=== PATIENT | female | born 1960 | race Caucasian/White ===

== ENCOUNTER 2021-04-18 22:10 | Emergency (ER) | payer OTHER ==
[2021-04-18] MEDS ORDERED: NA CHLORIDE 0.9% 1,000 ML ONE (23:20)
[2021-04-18 23:31] LABS: Absolute Lymphocytes (CBC) 3.5 K/uL (0.7-4.9); Basophils % 1.2 % (0-1.3); Hematocrit 36.3 % (36.0-45.0); Lymphocytes % 42.3 % (15.3-44.8); MPV 9.1 fL (7.6-11.3); RBC Red Blood Cell Count 4.37 M/uL (3.86-4.86)
[2021-04-18 23:32] LABS: Protime INR 0.97
[2021-04-18 23:46] LABS: ALT/SGPT 50 U/L (12-78); AST/SGOT 30 U/L (15-37); Albumin 3.2 g/dL (3.4-5.0); Alkaline Phosphatase 52 U/L (45-117); BUN Blood Urea Nitrogen 17 mg/dL (7-18); Bicarbonate 26 mmol/L (21-32); Bilirubin Direct < 0.1 mg/dL (0-0.2); Bilirubin Total 0.3 mg/dL (0.2-1.0); Glucose Level 236 mg/dL (74-106); Magnesium 1.8 mg/dL (1.8-2.4); NT PRO-BNP 58 pg/mL (<125); Potassium 3.8 mmol/L (3.5-5.1); Protein, Total 6.4 g/dL (6.4-8.2); Sodium Level 138 mmol/L (136-145); Troponin (Emerg Dept Use Only) < 0.02 ng/mL (0.0-0.045)
[2021-04-19 00:10] LABS: Urine Blood Negative (Negative); Urine Glucose Negative (Negative); Urine Protein Negative (Negative)
--- NOTE | 2021-04-19 03:45 | ER ---
Nurse's Notes [facility] Name: Jose Edmond Age: 60 yrs Sex: Female : 1960 Arrival Date: 04/18/2021 Time: 22:11 Bed 2 Private MD: Diagnosis: Volume depletion, unspecified Presentation: 04/18 22:22 Chief complaint: Patient states: low BP at home, reports 66/49, also reports dizziness, em had a headache by is gone now. Coronavirus screen: Vaccine status: Patient reports receiving the 2nd dose of the covid vaccine. Ebola Screen: Patient negative for fever greater than or equal to 101.5 degrees Fahrenheit, and additional compatible Ebola Virus Disease symptoms Patient denies exposure to infectious person. Patient denies travel to an Ebola-affected area in the 21 days before illness onset. No symptoms or risks identified at this time. Initial Sepsis Screen: Does the patient meet any 2 criteria? No. Patient's initial sepsis screen is negative. Does the patient have a suspected source of infection? No. Patient's initial sepsis screen is negative. Risk Assessment: Do you want to hurt yourself or someone else? Patient reports no desire to harm self or others. Onset of symptoms was April 18, 2021. 22:22 Method Of Arrival: Wheelchair em 22:22 Acuity: MAYRA 2 em 22:45 Note Pt states she was smoking marajuana tonight. Got up quickly and felt weak and wg shaky at home. Pt states she has not taken any medications other than what is prescribed. 22:52 Note finger stick 172mg/dl. wg Triage Assessment: 22:40 Headache History: The patient has had previous headaches and this one is similar to wg previous episodes. General: Appears comfortable, obese, well groomed, Behavior is calm, cooperative. Pain: Complains of pain in lower back and neck Pain does not radiate. Pain currently is 5 out of 10 on a pain scale. Quality of pain is described as aching, Pain began chronic pain- no changes Also complains of no other associated symptoms. EENT: No deficits noted. Neuro: No deficits noted. Cardiovascular: hypotensive. Cardiovascular: Rhythm is sinus rhythm. Respiratory: No deficits noted. GI: No deficits noted. : No deficits noted. Derm: No deficits noted. Musculoskeletal: No deficits noted. Historical: - Allergies: 22:24 Sulfa (Sulfonamide Antibiotics); em 22:24 TETRACYCLINES; em - Home Meds: 22:46 Furosemide Oral [Active]; Metformin Oral [Active]; clonazepam Oral [Active]; Verapamil wg Oral [Active]; hydrocodone-acetaminophen Oral [Active]; Insulin: Humalog Sub-Q [Active]; Quinapril HCl Oral [Active]; tizanidine oral [Active]; - PMHx: 22:24 Hypertensive disorder; Chronic obstructive lung disease; Diabetes mellitus; em - PSHx: 22:24 Cholecystectomy; section; back; hernia; hysterectomy; em - Immunization history:: Adult Immunizations up to date. - Social history:: Smoking status: Patient reports the use of cigarette tobacco products, denies chronic smoking, but will smoke occasionally. Screenin/17 03:23 Abuse screen: Denies threats or abuse. Denies injuries from another. Nutritional wg screening: No deficits noted. Tuberculosis screening: No symptoms or risk factors identified. Fall Risk Assessment: 04/18 23:15 General: Appears in no apparent distress. uncomfortable, obese, well groomed, Behavior wg is calm, cooperative, appropriate for age. Pain: Complains of pain in headache. 04/19 01:59 Reassessment: Patient appears in no apparent distress at this time. No changes from wg previously documented assessment. Patient and/or family updated on plan of care and expected duration. Pain level reassessed. Patient is alert, oriented x 3, equal unlabored respirations, skin warm/dry/pink. Pt has ambulated with assistance of wheelchair to BR multiple times. 02:01 Neuro: Reports dizziness, headache. Cardiovascular: hypotensive. Rhythm is sinus wg rhythm. Respiratory: No deficits noted. GI: No deficits noted. : No deficits noted. EENT: No deficits noted. Derm: No deficits noted. 02:45 Reassessment: Patient appears in no apparent distress at this time. No changes from wg previously documented assessment. Patient and/or family updated on plan of care and expected duration. Pain level reassessed. Patient is alert, oriented x 3, equal unlabored respirations, skin warm/dry/pink. Patient states feeling better. 04:09 Reassessment: Patient and/or family updated on plan of care and expected duration. Pain ea level reassessed. Patient is alert, oriented x 3, equal unlabored respirations, skin warm/dry/pink. Awaiting on lab results. Vital Signs: 04/18 22:22 BP 85 / 50; Pulse 83; Resp 18; Temp 98.7; Pulse Ox 95% on R/A; Weight 107.5 kg; Height em 5 ft. 4 in. (162.56 cm); 23:16 BP 105 / 64; Pulse 75; Resp 18; Pulse Ox 96% ; wg 04/19 00:00 BP 114 / 70; Pulse 76; Resp 18; Pulse Ox 99% on R/A; wg 00:30 BP 118 / 74; Pulse 72; Resp 18; Pulse Ox 99% on R/A; Pain 0/10; wg 01:57 BP 141 / 73; Pulse 79; Resp 17; Temp 98.2; Pulse Ox 96% ; Pain 1/10; mr2 02:45 BP 134 / 70; Pulse 78; Resp 18; Pulse Ox 99% on R/A; Pain 0/10; wg 03:24 BP 128 / 72; Pulse 76; Resp 18; Pulse Ox 99% on R/A; Pain 0/10; wg 04:30 BP 126 / 70; Pulse 74; Resp 18; Pulse Ox 99% on R/A; Pain 0/10; wg 04/18 22:22 Body Mass Index 40.68 (107.50 kg, 162.56 cm) em ED Course: 04/18 22:11 Patient arrived in ED. cf2 22:24 Triage completed. em 22:24 Arm band placed on. em 22:40 EKG completed in triage. Results shown to MD. wg 22:42 Jose Lux PA is PHCP. cp 22:42 Edgardo Johnston MD is Attending Physician. cp 22:44 Patient has correct armband on for positive identification. Placed in gown. Bed in low wg position. Call light in reach. Side rails up X2. Adult w/ patient. hall monitor on. Pulse ox on. NIBP on. 22:53 Inserted saline lock: 20 gauge in right forearm, using aseptic technique. wg 23:10 XRAY Chest (1 view) In Process Unspecified. EDMS 23:12 Protime (+INR) Sent. mr2 23:12 Troponin (Emerg Dept Use Only) Sent. mr2 23:12 Magnesium Sent. mr2 23:12 NT PRO-BNP Sent. mr2 23:12 Liver (Hepatic) Function Sent. mr2 23:12 CBC with Automated Diff Sent. mr2 23:12 Basic Metabolic Panel Sent. mr2 23:12 Blood Culture Adult (2) Sent. mr2 23:12 Lactate Sent. mr2 23:13 Procalcitonin Sent. mr2 23:13 Basic Metabolic Panel Sent. mr2 23:13 CBC with Diff Sent. mr2 23:13 LFT's Sent. mr2 23:13 Magnesium Sent. mr2 23:13 NT PRO-BNP Sent. mr2 23:13 PT-INR Sent. mr2 23:13 Troponin (emerg Dept Use Only) Sent. mr2 23:17 Magnus Quinteros RN is Primary Nurse. wg 04/19 00:11 Urine Dipstick-Ancillary Sent. 00:50 COVID-19 : Document "Date of Symptom Onset" if Symptomatic. Sent. wg 03:23 No provider procedures requiring assistance completed. wg 04:44 IV discontinued, intact, bleeding controlled, No redness/swelling at site. Pressure wg dressing applied. Administered Medications: 04/18 22:45 Drug: NS 0.9% 500 ml Route: IV; Rate: bolus; Infused Over: 30 mins; Site: right forearm;wg 23:15 Follow up: IV Status: Completed infusion; IV Intake: 500ml wg 04/19 00:33 Drug: NS 0.9% 500 ml Route: IV; Rate: bolus; Infused Over: 30 mins; Site: right wg antecubital; 01:00 Follow up: IV Status: Completed infusion; IV Intake: 500ml wg Intake: 04/18 23:15 IV: 500ml; Total: 500ml. wg 04/19 01:00 IV: 500ml; Total: 1000ml. wg Outcome: 03:45 Discharge ordered by . cp 04:44 Discharged to home wg 04:44 Discharged to home ambulatory. 04:44 Condition: stable 04:44 Condition: stable 04:44 Discharge instructions given to patient, Instructed on discharge instructions, follow up and referral plans. Demonstrated understanding of instructions, follow-up care, medications. 04:45 Patient left the ED. wg Signatures: Dispatcher [employer] Tay Munguia RN RN em Page, Corey, PA PA Chantell Pink RN RN ea Frazier, Celesta cf2 Magnus Quinteros, RN Artemio Singleton mr2 Corrections: (The following items were deleted from the chart) 04/18 23:46 22:22 Chief complaint: Patient states: low BP at home, reports 66/49, also reports em dizziness, had a headache by is gone now em 04/19 02:05 02:01 General: Appears in no apparent distress. uncomfortable, obese, well groomed, wg Behavior is calm, cooperative, appropriate for age, 02:05 02:01 Pain: Complains of pain in headache [facility] 02:05 02:01 Neuro: Reports dizziness, headache [facility]
--- NOTE | 2021-04-19 03:46 | EDPHYS ---
Physician Documentation [facility] Name: Jose Edmond Age: 60 yrs Sex: Female : 1960 Arrival Date: 04/18/2021 Time: 22:11 Bed 2 Private MD: ED Physician Edgardo Johnston HPI: 04/18 22:50 This 60 yrs old Female presents to ER via Wheelchair with complaints of Low cp Blood Sugar, Dizziness, Headache, FEELS LIKE SHES GOING TO PASS OUT. 22:50 The patient presents with feeling faint, lightheadedness. cp 22:50 Onset: The symptoms/episode began/occurred today. Associated signs and symptoms: cp Pertinent positives: headache, low blood pressure, Pertinent negatives: abdominal pain, chest pain, focal weakness, shortness of breath, syncope. Severity of symptoms: in the emergency department the symptoms have improved mildly. Patient's baseline: Neuro: alert and fully oriented, Motor: no deficits, Ambulation: walks with assist only, uses walker, Speech: normal. Historical: - Allergies: 22:24 Sulfa (Sulfonamide Antibiotics); em 22:24 TETRACYCLINES; em - Home Meds: 22:46 Furosemide Oral [Active]; Metformin Oral [Active]; clonazepam Oral [Active]; Verapamil wg Oral [Active]; hydrocodone-acetaminophen Oral [Active]; Insulin: Humalog Sub-Q [Active]; Quinapril HCl Oral [Active]; tizanidine oral [Active]; - PMHx: 22:24 Hypertensive disorder; Chronic obstructive lung disease; Diabetes mellitus; em - PSHx: 22:24 Cholecystectomy; section; back; hernia; hysterectomy; em - Immunization history:: Adult Immunizations up to date. - Social history:: Smoking status: Patient reports the use of cigarette tobacco products, denies chronic smoking, but will smoke occasionally. ROS: 22:55 Constitutional: Negative for body aches, chills, fever, poor PO intake. cp 22:55 Cardiovascular: Negative for chest pain, edema, palpitations. cp 22:55 Respiratory: Negative for cough, shortness of breath, wheezing. Exam: 22:47 ECG was reviewed by the Attending Physician. cp 23:00 Constitutional: The patient appears in no acute distress, alert, awake, cp non-diaphoretic, non-toxic, well developed, well nourished, obese. 23:00 Head/Face: Normocephalic, atraumatic. cp 23:00 Eyes: Periorbital structures: appear normal, Pupils: equal, round, and reactive to light and accomodation, Extraocular movements: intact throughout, Conjunctiva: normal, no exudate, no injection, Sclera: no appreciated abnormality, Lids and lashes: appear normal, bilaterally. 23:00 ENT: External ear(s): are unremarkable, Nose: is normal, Mouth: Lips: moist, Oral mucosa: pink and intact, moist, Posterior pharynx: Airway: no evidence of obstruction, patent. 23:00 Neck: ROM/movement: is normal, is supple, without pain, no range of motions limitations, no meningismus. 23:00 Chest/axilla: Inspection: normal. 23:00 Cardiovascular: Rate: normal, Rhythm: regular, Edema: is not appreciated, JVD: is not appreciated. 23:00 Respiratory: the patient does not display signs of respiratory distress, Respirations: normal, no use of accessory muscles, no retractions, labored breathing, is not present, Breath sounds: are clear throughout, no decreased breath sounds, no stridor, no wheezing. 23:00 Abdomen/GI: Inspection: obese Bowel sounds: active, all quadrants, Palpation: abdomen is soft and non-tender, in all quadrants. 23:00 Back: pain, is absent, ROM is normal. 23:00 Neuro: Orientation: to person, place \\T\\ time. Mentation: able to follow commands, slow to respond, Cerebellar function: is grossly normal, Motor: moves all fours, strength is normal, Sensation: is normal. Vital Signs: 22:22 BP 85 / 50; Pulse 83; Resp 18; Temp 98.7; Pulse Ox 95% on R/A; Weight 107.5 kg; Height em 5 ft. 4 in. (162.56 cm); 23:16 BP 105 / 64; Pulse 75; Resp 18; Pulse Ox 96% ; wg 17 00:00 BP 114 / 70; Pulse 76; Resp 18; Pulse Ox 99% on R/A; wg 00:30 BP 118 / 74; Pulse 72; Resp 18; Pulse Ox 99% on R/A; Pain 0/10; wg 01:57 BP 141 / 73; Pulse 79; Resp 17; Temp 98.2; Pulse Ox 96% ; Pain 1/10; mr2 02:45 BP 134 / 70; Pulse 78; Resp 18; Pulse Ox 99% on R/A; Pain 0/10; wg 03:24 BP 128 / 72; Pulse 76; Resp 18; Pulse Ox 99% on R/A; Pain 0/10; wg 04:30 BP 126 / 70; Pulse 74; Resp 18; Pulse Ox 99% on R/A; Pain 0/10; wg 04/18 22:22 Body Mass Index 40.68 (107.50 kg, 162.56 cm) em MDM: 04/18 22:43 Patient medically screened. 04/19 00:00 Differential diagnosis: cardiac arrhythmia, GI bleed, hypovolemia, sepsis. 03:45 Data reviewed: vital signs, nurses notes, lab test result(s), EKG, radiologic studies, cp plain films. 03:45 Test interpretation: by ED physician or midlevel provider: ECG, plain radiologic cp studies. Response to treatment: the patient's symptoms have markedly improved after treatment. 04/18 22:49 Order name: Basic Metabolic Panel 04/18 22:49 Order name: CBC with Diff 04/18 22:49 Order name: LFT's 04/18 22:49 Order name: Magnesium 04/18 22:49 Order name: NT PRO-BNP 04/18 22:49 Order name: PT-INR 04/18 22:49 Order name: Troponin (emerg Dept Use Only) 04/18 22:50 Order name: Procalcitonin; Complete Time: 00:30 04/18 22:50 Order name: Lactate; Complete Time: 00:30 04/19 00:30 Interpretation: Abnormal: LAC 2.9. 04/18 22:50 Order name: Blood Culture Adult (2) 04/18 22:50 Order name: Basic Metabolic Panel; Complete Time: 00:30 EDMS 04/19 00:31 Interpretation: Normal except: GLUC 236; GFR 70. 04/18 22:50 Order name: CBC with Automated Diff; Complete Time: 00:30 EDMS 04/19 00:31 Interpretation: Normal except: MCV 83.1; RDW 16.1. 04/18 22:50 Order name: Liver (Hepatic) Function; Complete Time: 00:30 EDMS 04/19 00:31 Interpretation: Normal except: ALB 3.2; A/G 1.0. 04/18 22:49 Order name: XRAY Chest (1 view) 04/18 22:50 Order name: Magnesium; Complete Time: 00:30 EDMS 04/18 22:50 Order name: NT PRO-BNP; Complete Time: 00:30 EDNM 04/18 22:50 Order name: Protime (+INR); Complete Time: 00:30 EDMS 04/18 22:50 Order name: Troponin (Emerg Dept Use Only); Complete Time: 00:30 EDMS 04/18 22:57 Order name: Glucose, Ancillary Testing; Complete Time: 23:07 EDNM 04/19 00:10 Order name: Urine Dipstick-Ancillary EDNM 04/19 00:10 Order name: Urine Dipstick-Ancillary; Complete Time: 00:30 EDNM 04/19 00:42 Order name: COVID-19 : Document "Date of Symptom Onset" if Symptomatic. 04/19 01:41 Order name: SARS-COV-2 RT PCR; Complete Time: 02:06 EDNM 04/19 04:24 Order name: Lactate Sepsis 2 HR Follow-up; Complete Time: 04:27 EDNM 04/18 22:49 Order name: EKG; Complete Time: 22:50 04/18 22:49 Order name: Cardiac monitoring; Complete Time: 23:14 04/18 22:50 Order name: EKG - Nurse/Tech; Complete Time: 23:14 04/18 22:50 Order name: IV Saline Lock; Complete Time: 23:14 04/18 22:50 Order name: Labs collected and sent; Complete Time: 23:14 04/18 22:50 Order name: O2 Per Protocol; Complete Time: 23:32 04/18 22:50 Order name: O2 Sat Monitoring; Complete Time: 23:14 04/18 22:50 Order name: Urine Dipstick-Ancillary (obtain specimen); Complete Time: 00:11 cp EC/16 22:47 Rate is 78 beats/min. Rhythm is regular. ND interval is normal. QRS interval is normal. cp QT interval is normal. T waves are Inverted in lead aVL. Interpreted by me. Reviewed by me. Administered Medications: 22:45 Drug: NS 0.9% 500 ml Route: IV; Rate: bolus; Infused Over: 30 mins; Site: right forearm;wg 23:15 Follow up: IV Status: Completed infusion; IV Intake: 500ml wg 04/19 00:33 Drug: NS 0.9% 500 ml Route: IV; Rate: bolus; Infused Over: 30 mins; Site: right wg antecubital; 01:00 Follow up: IV Status: Completed infusion; IV Intake: 500ml Disposition: 04:00 Chart complete. cp 04:47 Co-signature as Attending Physician, Edgardo Johnston MD. pkl Disposition Summary: 04/19/21 03:45 Discharge Ordered Location: Home cp Problem: new cp Symptoms: have improved cp Condition: Stable cp Diagnosis - Volume depletion, unspecified cp Followup: cp - With: Private Physician - When: 2 - 3 days - Reason: Recheck today's complaints Discharge Instructions: - Discharge Summary Sheet cp - Dehydration, Adult cp Forms: - Medication Reconciliation Form cp - Thank You Letter cp - Antibiotic Education cp - Prescription Opioid Use cp Signatures: Dispatcher [employer] EDEdgardo Rodriguez MD MD pkl Munoz, Edgar RN RN Jose Deutsch PA PA cp Gamba, Liam, RN Corrections: (The following items were deleted from the chart) 00:51 00:43 CORONAVIRUS ordered. EDMS EDMS 02:49 02:31 Head Brain Wo Cont+CT.RAD.BRZ ordered. EDMS EDMS
[2021-04-19 04:58] VITALS: TEMP 98.2
[2021-04-19 05:00] VITALS: O2SAT 99
[2021-04-19 05:02] VITALS: BP 126/70
--- NOTE | 2021-04-19 08:30 | RAD REPORT ---
EXAM DESCRIPTION: RAD - Chest Single View - 04/18/2021 11:10 pm CLINICAL HISTORY: hypotension COMPARISON: None TECHNIQUE: AP portable chest image was obtained 04/18/2021 11:10 pm . FINDINGS: No mass or consolidation. No significant failure or volume overload. Interstitial markings in each lung base are accentuated much of which is due to portable technique and overlying soft tiss ues. Lung base interstitial edema or infiltrate could be masked. Heart and vasculature are normal. No measurable pleural effusion and no pneumothorax. No acute bony abnormality seen. No acute aortic findings suspected. IMPRESSION: No focal mass or consolidation. Increased bibasilar interstitial pattern is probably the affects of overlying soft tissues though a m ild interstitial edema or infiltrate would be possible.
--- NOTE | 2021-04-19 18:24 | EKG ---
Test Date: 2021-04-18 Test Time: 22:42:52 Abalone Sheller: JAZMYN MEASUREMENT RESULTS: Intervals: Rate: 78 HI: 184 QRSD: 94 QT: 394 QTc: 449 Sibley: P: 62 HI: 184 QRS: 51 T: 79 INTERPRETIVE STATEMENTS: Normal sinus rhythm Normal ECG Compared to ECG 12/05/2013 14:01:37 No significant changes Electronically Signed On 04-19-21 18:21:00 CDT by Corey Johnson
== END 2021-04-19 04:45 | disposition home or self-care (01) ==
LOC: ER 22:10
DX: E86.9 Volume depletion, unspecified (principal); I10 Essential (primary) hypertension; E11.9 Type 2 diabetes mellitus without complications; J44.9 Chronic obstructive pulmonary disease, unspecified; F17.210 Nicotine dependence, cigarettes, uncomplicated; Z88.1 Allergy status to other antibiotic agents; Z88.2 Allergy status to sulfonamides; Z79.4 Long term (current) use of insulin; Z20.822 Contact with and (suspected) exposure to COVID-19
CPT/HCPCS: 93005; 87040 ×2; 85025; 80048; 36415; 83735; 85610; 82947; 80076; 83605 ×2; 81003; 84484; 84145; 83880; 71045; 96360; 99284; U0003; J7030

== ENCOUNTER 2022-07-23 16:02 | Inpatient (IN) | payer OTHER ==
--- OUTSIDE RECORDS SUMMARY | 2022-07-23 16:29 | XMS REPORT | Continuity of Care Document ---
:1960 Author Organization [facility] t Address [address] [place] [address] Care Team Providers Name Role Phone Jefferson Witt MD Primary Care Physician BISI CARDOSO Attending Clinician Unavailable GIOVANY ANTOINE Attending Clinician Unavailable RACHELL CHENG Attending Clinician Unavailable RACHELL CHENG Attending Clinician Unavailable JEFFERSON WITT Attending Clinician Unavailable Marylou Borrego Attending Clinician Claudia Recinos Attending Clinician JESUS SPAIN Attending Clinician Unavailable Jesus Spain MD Attending Clinician Jefferson Witt MD Attending Clinician Rachell Cheng MD Attending Clinician ROSETTE CONTERRAS Attending Clinician Unavailable Rosette Markham Attending Clinician [facility], [facility] Sleep Lab Attending Clinician Unavailable Doctor Unassigned, [place] Attending Clinician Unavailable 2, [facility] Lab Attending Clinician Unavailable CLAUDIA PORTER Attending Clinician Unavailable DAYLIN MOJICA Attending Clinician Unavailable Daylin Mojica NP Attending Clinician [facility], [facility] Attending Clinician UnavailGiovany Moseley MD Attending Clinician ARMINDA VEGA Attending Clinician Unavailable Noemi Christian Attending Clinician Andrea Morrow MD Attending Clinician NOEMI WAITE Attending Clinician Unavailable DILAN LOVE Attending Clinician Unavailable Dilan Love MD Attending Clinician Lab, Ang - Db Attending Clinician Unavailable MARYLOU GAMINO Attending Clinician Unavailable PRAVEEN SAGE Attending Clinician Unavailable Praveen Shipman Attending Clinician Audrey OCONNOR, Brian Iraheta. Attending Clinician BRIAN VENTURA.H. Attending Clinician Unavailable Only, Adc Test Attending Clinician Unavailable Mike OCONNOR, Maryam Attending Clinician MARYAM MCKEON Attending Clinician Unavailable ROBBIE CORONADO Attending Clinician Unavailable Nurse, [facility] Pob Immunization Attending Clinician Unavailable Severo Lara DO Attending Clinician SEVERO LARA Attending Clinician Unavailable Linda CHONG, Elizabeth Ballesteros Attending Clinician Unavailable CHERYLE PERERA Attending Clinician Unavailable Cheryle Perera MD Attending Clinician Ana Riddle MD Attending Clinician Derek HAM SAWYERDoron Attending Clinician DORON REED Attending Clinician Unavailable Josse Lafleur Attending Clinician JOSSE LEYVA Attending Clinician Unavailable Provider, [facility] Attending Clinician Unavailable Romi Fernandez Attending Clinician Lia CHONG, Araceli Black Attending Clinician Unavailable JAYASHREE MULLINS Attending Clinician Unavailable Jayashree Mullins DO Attending Clinician JORGE LUIS LANE Attending Clinician Unavailable Bisi Cardoso MD Attending Clinician Guy Mcclellan RN, Yaneli Attending Clinician Unavailable , [facility] Echo Room 1 - Attending Clinician Unavailable Robbie Coronado MD Attending Clinician Visit, Adc Nurse Attending Clinician Unavailable Gramm HAM SAWYER, Sandy A Attending Clinician GRAMM, SANDY A Attending Clinician Unavailable Lab, [facility] Fam Pob I Attending Clinician Unavailable Tani CHONG, Alana Prabhakar Attending Clinician Unavailable Shayálvaroulices [facility], Aleks Attending Clinician Pob1, Acute [facility] Attending Clinician Unavailable Dariel OCONNOR, Keila Attending Clinician KEILA DELCID Attending Clinician Unavailable Kim CHONG, Ciara Attending Clinician Unavailable BISI CARDOSO Admitting Clinician Unavailable JEFFERSON WITT Admitting Clinician Unavailable BRIAN VENTURA Admitting Clinician Unavailable CHERYLE PERERA Admitting Clinician Unavailable Trever OCONNOR, Cheryle Admitting Clinician Bisi Cardoso MD Admitting Clinician KEILA DELCID Admitting Clinician Unavailable Payers Payer Name Policy Type Policy Number Effective Date Expiration Date S leon [employer] MEDICARE [id number] 2019 00:00:00 MEDICARE PART A [id number] 2021 2021 \\T\\ B 00:00:00 00:00:00 [id number] 2021 2021 [place] 00:00:00 00:00:00 Problems Condition Condition Condition Status Onset Resolution Last Treating Co mments Source Name Details Category Date Date Treatment Clinician Date VERNON VERNON Disease Active 2021-08 Univers (obstructi (obstructi 1-23 it y of ve sleep ve sleep 00:00: [place] apnea) apnea) 00 Medical Branch Chest pain Chest pain Disease Active 2020-08 U nivers 0-29 ity of 00:00: [place] 00 Medical Branch Morbid Morbid Disease Active 2020-08 Univers obesity obesity 0-29 ity of 00:00: [place] 00 Medical Branch Chronic Chronic Disease Active 2020-08 Univers atrial atrial 0-29 [place] fibrill[place] fibr[place] ICD ICD Disease Active 2020-08 Univers (implantab (implantab 0-29 it y of le le 00:00: [place] cardiovert cardiovert 00 Me dical er-defibri er-defibri Br anch llator) in llator) in place place Abnormal Abnormal Disease Active 2020-08 Unive rs serum serum 0-29 ity of level of level of 00:00: [place] lipase lipase 00 Medical Branch Leg edema Leg edema Disease Active 2020-08 Uni vers 0-29 ity of 00:00: [place] [facility] Calculus Calculus Disease Active 2019-08 Overview: Un justice of of 2-18 Formatt[place] ity of gallbladde gallbladde 00:00: g of this [place] r without r without 00 note Medi ashley cholecysti cholecysti might be Branch tis tis different without without from the obstructio obstructio original. n n Added automatic ally from request for surgery [id number] Neuropathy Neuropathy Disease Active 2019- U nivers 9-22 ity of 00:00: [place] Medical [facility] Bronchitis Bronchitis Disease Active U nivers 4-22 ity of 00:00: [place] [facility] SOB SOB Disease Active Univers (shortness (shortness 4-22 it y of of breath) of breath) [place] Fever in Fever in Disease Active Unive rs adult adult 4-22 ity of 00:00: [place] [facility] Tobacco Tobacco Disease Active Univers dependence dependence 4-22 it y of 00:00: [place] [facility] Obesity Obesity Disease Active Univers 9-21 ity of 00:00: [place] [facility] Low back Low back Disease Active Unive rs pain pain 9-21 ity of 00:00: [place] [facility] Anxiety Anxiety Disease Active Univers 6-24 ity of 00:00: [place] [facility] Type 2 Type 2 Disease Active Univers diabetes diabetes 6-13 ity of mellitus mellitus 00:00: [place] [facility] Hyperlipid Hyperlipid Disease Active U nivers emia with emia with 6-13 ity of target LDL [place] LDL 00:[place] less than less than 00 Medi [place]ley 100 100 Branch Essential Essential Disease Active Uni vers hypertensi hypertensi 6-13 it y of on on 00:00: [place] [facility] Right knee Right knee Disease Active U nivers pain pain 5-31 ity of 00:00: [place] [facility] Right knee Right knee Disease Active U nivers pain pain 5-31 ity of 00:00: [place] [facility] Allergies, Adverse Reactions, Alerts Allergy Allergy Status Severity Reaction(s) Onset Inactive Treating Comm ents Source Name Type Date Date Clinician Glipizid Propensi Active Rash Rash on Unive rs e ty to 5-26 head, ity of adverse 00:00: back [place] reaction 00 Medical s Branch GLIPIZID DRUG Active Rash Univers E INGREDI 5-26 ity of 00:00: [place] 00 Medical Branch Clindamy Propensi Active Nausea 2017-08 Univer s kaylan ty to and/or 0-28 ity of adverse Vomiting 00:00: [place] reaction 00 Medical s Branch CLINDAMY DRUG Active N/V 2017-08 Univers KAYLAN INGREDI 0-28 ity of 00:00: [place] 00 Medical Branch Sulfa Propensi Active Rash Univers (Sulfona ty to 7-13 ity of mide adverse 00:00: [place] Antibiot reaction 00 Medica l ics) s Branch Tetracyc Propensi Active Rash Univer s lines ty to 7-13 ity of adverse 00:00: [place] reaction Medical s Branch SULFA Drug Active Rash Univers (SULFONA Class 7-13 ity of MIDE 00:00: [place] ANTIBIOT 00 Medical ICS) Branch TETRACYC Drug Active Rash Univers LINES Class 7-13 ity of 00:00: [place] 00 Medical Branch Tetracyc Propensi Active Rash Univer s lines ty to 7-13 ity of adverse 00:00: [place] reaction 00 [facility] Social History Social Habit Start Date Stop Date Quantity Comments Source History of tobacco Cigarette Smoker University of use [facility] Exposure to 2022-07-09 2022-07-19 Not sure University of SARS-CoV-2 (event) 00:00:00 13:34:00 [facility] Alcohol intake 2022-07-16 2022-07-16 0 /d University of 00:00:00 00:00:00 [facility] Cigarettes smoked 2022-06-04 2022-06-04 Univers ity of current (pack per 00:00:00 00:00:00 ) - Reported Branch Cigarette 2022-06-04 2022-06-04 University of pack-years 00:00:00 00:00:00 [facility] Tobacco use and 2022-06-04 2022-06-04 User of Universit y of exposure 00:00:00 00:00:[address] [facility] tobacco [place] Sex Ass[birth year] At [birth year] Universit y of 00:00:00 00:00:00 [facility] Smoking Status Start Date Stop Date Source Smokes tobacco daily 2022-06-04 00:00:00 Univers ity of [facility] Medications Ordered Filled Start Stop Current Ordering Indication Dosage Frequency Signature Comments Components Source Medication Medication Date Date Medication? Clinician (SIG) Name Name gabapentin 2021-08 Yes [id number] TAKE 1 Univers 300 mg 2-20 CAPSULE BY ity of capsule 00:00: [place]TH [place] 00 TIMES Medical DAILY Branch NIFEdipine 2021-08 Yes [id number] 60mg Take 1 U nivers ER 60 mg 2-19 tablet by ity of tablet 00:00: mouth in [place] [address] the Medical morning Branch and 1 tablet in the evening. NIFEdipine 2021-08 Yes [id number] 60mg Take 1 U nivers ER 60 mg 2-19 tablet by ity of tablet 00:00: mouth in [place] [address] the Medical morning Branch and 1 tablet in the evening. NIFEdipine 2021-08 Yes [id number] 60mg Take 1 U nivers ER 60 mg 2-19 tablet by ity of tablet 00:00: mouth in [place] [address] the Medical morning Branch and 1 tablet in the evening. ondansetron 2021-08 No 4mg 4 mg, Slow Univers (ZOFRAN 2-17 -17 IV Push, ity of (PF)) 20:45: 20:00 ONCE, 1 [place] injection 4 00 :00 dose, On Medi ashley mg Sat Branch 07/19/22 at 1445, GEOVANI morpHINE (4 2021-08 No 4mg 4 mg, Slow Univers mg/mL) 2-17 12-17 IV Push, ity of injection 4 19:45: 20:00 [place]CE[place] 1 [place] mg 00 :[place] dose, On Medical Sat [place] 07/19/22 at 1345, STAT cephALEXin 2021-08 Yes [id number] 500mg Take 1 Univers (KEFLEX) 2-17 capsule by ity o f 500 mg 00:00: mouth 4 [place] capsule 00 (four) Medical times [place] daily. ciprofloxac 2021-08 Yes [id number] 500mg Take 1 Univers in HCl 500 2-17 tablet by ity of mg tablet 00:00: [place] the Medical morning Branch and 1 tablet in the evening. cephALEXin 2021-08 Yes [id number] 500mg Take 1 Univers (KEFLEX) 2-17 capsule by ity o f 500 mg 00:00: mouth 4 [place] capsule 00 (four) Medical times Branch daily. ciprofloxac 2021-08 Yes [id number] 500mg Take 1 Univers in HCl 500 2-17 tablet by ity of mg tablet 00:00: [place] the Medical morning Branch and 1 tablet in the evening. cephALEXin 2021-08 Yes [id number] 500mg Take 1 Univers (KEFLEX) 2-17 capsule by ity o f 500 mg 00:00: mouth 4 [place] capsule 00 ([facility]) Medical times Branch daily. ciprofloxac 2021-08 Yes [id number] 500mg Take 1 Univers in HCl 500 2-17 tablet by ity of mg tablet 00:00: [place] the Medical morning Branch and 1 tablet in the evening. cephALEXin 2021-08 Yes [id number] 500mg Take 1 Univers (KEFLEX) 2-17 capsule by ity o f 500 mg 00:00: mouth 4 [place] capsule 00 (chi [facility]) Medical times Branch daily. ciprofloxac 2021-08 Yes [id number] 500mg Take 1 Univers in HCl 500 2-17 tablet by ity of mg tablet 00:00: [place] the Medical morning Branch and 1 tablet in the evening. furosemide 2021-08 Yes 80mg Take 1 Unive rs 80 mg 2-08 tablet by ity of tablet 00:00: mouth [place] 00 every 48 Medical ([facility]) hours. spironolact 2021-08 Yes 25mg Take 1 Univ ers one 25 mg 2-08 tablet by ity o f tablet 00:00: mouth [place] 00 every 48 Medical ([facility]) hours. furosemide 2021-08 Yes 80mg Take 1 Unive rs 80 mg 2-08 tablet by ity of tablet 00:00: mouth [place] 00 every 48 Medical ([facility]) hours. spironolact 2021-08 Yes 25mg Take 1 Univ ers one 25 mg 2-08 tablet by ity o f tablet 00:00: mouth [place] 00 every 48 Medical ([facility] ) hours. furosemide 2021- Yes 80mg Take 1 Unive rs 80 mg 2-08 tablet by ity of tablet 00:00: mouth [place] 00 every 48 Medical ([facility] Branch ) hours. spironolact 2021-08 Yes 25mg Take 1 Univ ers one 25 mg 2-08 tablet by ity o f tablet 00:00: mouth [place] 00 every 48 Medical ([facility] Branch ) hours. furosemide 2021- Yes 80mg Take 1 Unive rs 80 mg 2-08 tablet by ity of tablet 00:00: mouth [place] 00 every 48 Medical ([facility] Branch ) hours. spironolact 2021-08 Yes 25mg Take 1 Univ ers one 25 mg 2-08 tablet by ity o f tablet 00:00: mouth [place] 00 every 48 Medical ([facility] Branch ) hours. furosemide 2021- Yes 80mg Take 1 Unive rs 80 mg 2-08 tablet by ity of tablet 00:00: mouth [place] 00 every 48 Medical ([facility] ) hours. spironolact 2021-08 Yes 25mg Take 1 Univ ers one 25 mg 2-08 tablet by ity o f tablet 00:00: mouth [place] 00 every 48 Medical ([facility] Branch ) hours. furosemide 2021- Yes 80mg Take 1 Unive rs 80 mg 2-08 tablet by ity of tablet 00:00: mouth [place] 00 every 48 Medical ([facility] ) hours. spironolact 2021-08 Yes 25mg Take 1 Univ ers one 25 mg 2-08 tablet by ity o f tablet 00:00: mouth [place] 00 every 48 Medical ([facility] Branch ) hours. furosemide 2021-1 Yes 80mg Take 1 Unive rs 80 mg 2-08 tablet by ity of tablet 00:00: mouth [place] 00 every 48 Medical ([facility]) hours. spironolact 2021-08 Yes 25mg Take 1 Univ ers one 25 mg 2-08 tablet by ity o f tablet 00:00: mouth [place] 00 every 48 Medical ([facility] ) hours. furosemide 2021-1 Yes 80mg Take 1 Unive rs 80 mg 2-08 tablet by ity of tablet 00:00: mouth [place] 00 every 48 Medical ([facility]) hours. spironolact 2021- Yes 25mg Take 1 Univ ers one 25 mg 2-08 tablet by ity o f tablet 00:00: mouth [place] 00 every 48 Medical ([facility]) hours. furosemide 2021-1 Yes 80mg Take 1 Unive rs 80 mg 2-08 tablet by ity of tablet 00:00: mouth [place] 00 every 48 Medical ([facility]) hours. spironolact 2021- Yes 25mg Take 1 Univ ers one 25 mg 2-08 tablet by ity o f tablet 00:00: mouth [place] 00 every 48 Medical ([facility]) hours. furosemide 2021-1 Yes 80mg Take 1 Unive rs 80 mg 2-08 tablet by ity of tablet 00:00: mouth [place] 00 every 48 Medical ([facility]) hours. spironolact 2021- Yes 25mg Take 1 Univ ers one 25 mg 2-08 tablet by ity o f tablet 00:00: mouth [place] 00 every 48 Medical ([facility]) hours. furosemide 2021-1 Yes 80mg Take 1 Unive rs 80 mg 2-08 tablet by ity of tablet 00:00: mouth [place] 00 every 48 Medical ([facility]) hours. spironolact 2021- Yes 25mg Take 1 Univ ers one 25 mg 2-08 tablet by ity o f tablet 00:00: mouth [place] 00 every 48 Medical ([facility]) hours. furosemide 2-1 Yes 80mg Take 1 Unive rs 80 mg 2-08 tablet by ity of tablet 00:00: mouth [place] 00 every 48 Medical ([facility]) hours. spironolact 2021-1 Yes 25mg Take 1 Univ ers one 25 mg 2-08 tablet by ity o f tablet 00:00: mouth [place] 00 every 48 Medical ([facility]) hours. furosemide 2-1 Yes 80mg Take 1 Unive rs 80 mg 2-08 tablet by ity of tablet 00:00: mouth [place] 00 every 48 Medical ([facility]) hours. spironolact 2021-1 Yes 25mg Take 1 Univ ers one 25 mg 2-08 tablet by ity o f tablet 00:00: mouth [place] 00 every 48 Medical ([facility]) hours. furosemide 2021-08 Yes 80mg Take 1 Unive rs 80 mg 2-08 tablet by ity of tablet 00:00: mouth [place] 00 every 48 Medical ([facility]) hours. spironolact 2021-08 Yes 25mg Take 1 Univ ers one 25 mg 2-08 tablet by ity o f tablet 00:00: mouth [place] 00 every 48 Medical ([facility]) hours. furosemide 2021-08 Yes 80mg Take 1 Unive rs 80 mg 2-08 tablet by ity of tablet 00:00: mouth [place] 00 every 48 Medical ([facility]) hours. spironolact 2021-08 Yes 25mg Take 1 Univ ers one 25 mg 2-08 tablet by ity o f tablet 00:00: mouth [place] 00 every 48 Medical ([facility]) hours. furosemide 2021-08 Yes 80mg Take 1 Unive rs 80 mg 2-08 tablet by ity of tablet 00:00: mouth [place] 00 every 48 Medical ([facility]) hours. spironolact 2021-08 Yes 25mg Take 1 Univ ers one 25 mg 2-08 tablet by ity o f tablet 00:00: mouth [place] 00 every 48 Medical ([facility]) hours. quinapriL 2021-08 Yes [id number] 40mg Take 1 Un justice 40 mg 2-07 tablet by ity of tablet 00:00: mouth [place] 00 every Medical morning. Branch quinapriL 2021-08 Yes [id number] 40mg Take 1 Un justice 40 mg 2-07 tablet by ity of tablet 00:00: mouth [place] 00 every Medical morning. Branch quinapriL 2021-08 Yes [id number] 40mg Take 1 Un justice 40 mg 2-07 tablet by ity of tablet 00:00: mouth [place] 00 every Medical morning. Branch quinapriL 2021-08 Yes [id number] 40mg Take 1 Un justice 40 mg 2-07 tablet by ity of tablet 00:00: mouth [place] 00 every Medical morning. Branch quinapriL 2021-08 Yes [id number] 40mg Take 1 Un justice 40 mg 2-07 tablet by ity of tablet 00:00: mouth [place] 00 every Medical morning. Branch quinapriL 2021-08 Yes [id number] 40mg Take 1 Un justice 40 mg 2-07 tablet by ity of tablet 00:00: mouth [place] 00 every Medical morning. Branch quinapriL 2021-08 Yes [id number] 40mg Take 1 Un justice 40 mg 2-07 tablet by ity of tablet 00:00: mouth [place] 00 every Medical morning. Branch quinapriL 2021-08 Yes [id number] 40mg Take 1 Un justice 40 mg 2-07 tablet by ity of tablet 00:00: mouth [place] 00 every Medical morning. Branch quinapriL 2021-08 Yes [id number] 40mg Take 1 Un justice 40 mg 2-07 tablet by ity of tablet 00:00: mouth [place] 00 every Medical morning. Branch quinapriL 2021-08 Yes [id number] 40mg Take 1 Un justice 40 mg 2-07 tablet by ity of tablet 00:00: mouth [place] 00 every Medical morning. Branch quinapriL 2021-08 Yes [id number] 40mg Take 1 Un justice 40 mg 2-07 tablet by ity of tablet 00:00: mouth [place] 00 every Medical morning. Branch quinapriL 2021-08 Yes [id number] 40mg Take 1 Un justice 40 mg 2-07 tablet by ity of tablet 00:00: mouth [place] 00 every Medical morning. Branch quinapriL 2021-08 Yes [id number] 40mg Take 1 Un justice 40 mg 2-07 tablet by ity of tablet 00:00: mouth [place] 00 every Medical morning. Branch quinapriL 2021-08 Yes [id number] 40mg Take 1 Un justice 40 mg 2-07 tablet by ity of tablet 00:00: mouth [place] 00 every Medical morning. Branch quinapriL 2021-08 Yes [id number] 40mg Take 1 Un justice 40 mg 2-07 tablet by ity of tablet 00:00: mouth [place] 00 every Medical morning. Branch quinapriL 2021-08 Yes [id number] 40mg Take 1 Un justice 40 mg 2-07 tablet by ity of tablet 00:00: mouth [place] 00 every Medical morning. Branch HYDROcodone 2021-08 Yes [id number] 1{tbl} Take 1 Un justice -acetaminop 1-30 tablet by ity of hen 7.5-325 00:00: mouth [place] mg per 00 every 6 Medical tablet (six) Branch hours as needed for Pain. Indication s: chronic pain HYDROcodone 2021-08 Yes 2745 1{tbl} Take 1 Un justice -acetaminop 1-30 tablet by ity of hen 7.5-325 00:00: mouth [place] mg per 00 every 6 Medical tablet (six) Branch hours as needed for Pain. Indication s: chronic pain HYDROcodone 2021-08 Yes 2745 1{tbl} Take 1 Un justice -acetaminop 1-30 tablet by ity of hen 7.5-325 00:00: mouth [place] mg per 00 every 6 Medical tablet (six) Branch hours as needed for Pain. Indication s: chronic pain HYDROcodone 2021-08 Yes 2745 1{tbl} Take 1 Un justice -acetaminop 1-30 tablet by ity of hen 7.5-325 00:00: mouth [place] mg per 00 every 6 Medical tablet (six) Branch hours as needed for Pain. Indication s: chronic pain HYDROcodone 2021-08 Yes 2745 1{tbl} Take 1 Un justice -acetaminop 1-30 tablet by ity of hen 7.5-325 00:00: mouth [place] mg per 00 every 6 Medical tablet (six) Branch hours as needed for Pain. Indication s: chronic pain HYDROcodone 2021-08 Yes 2745 1{tbl} Take 1 Un justice -acetaminop 1-30 tablet by ity of hen 7.5-325 00:00: mouth [place] mg per 00 every 6 Medical tablet (six) Branch hours as needed for Pain. Indication s: chronic pain HYDROcodone 2021-08 Yes 2745 1{tbl} Take 1 Un justice -acetaminop 1-30 tablet by ity of hen 7.5-325 00:00: mouth [place] mg per 00 every 6 Medical tablet (six) Branch hours as needed for Pain. Indication s: chronic pain HYDROcodone 2021-08 Yes 2745 1{tbl} Take 1 Un justice -acetaminop 1-30 tablet by ity of hen 7.5-325 00:00: mouth [place] mg per 00 every 6 Medical tablet (six) Branch hours as needed for Pain. Indication s: chronic pain HYDROcodone 2021-08 Yes 2745 1{tbl} Take 1 Un justice -acetaminop 1-30 tablet by ity of hen 7.5-325 00:00: mouth [place] mg per 00 every 6 Medical tablet (six) Branch hours as needed for Pain. Indication s: chronic pain HYDROcodone 2021-08 Yes 2745 1{tbl} Take 1 Un justice -acetaminop 1-30 tablet by ity of hen 7.5-325 00:00: mouth [place] mg per 00 every 6 Medical tablet (six) Branch hours as needed for Pain. Indication s: chronic pain HYDROcodone 2021-08 Yes 2745 1{tbl} Take 1 Un justice -acetaminop 1-30 tablet by ity of hen 7.5-325 00:00: mouth [place] mg per 00 every 6 Medical tablet (six) Branch hours as needed for Pain. Indication s: chronic pain HYDROcodone 2021-08 Yes 2745 1{tbl} Take 1 Un justice -acetaminop 1-30 tablet by ity of hen 7.5-325 00:00: mouth [place] mg per 00 every 6 Medical tablet (six) Branch hours as needed for Pain. Indication s: chronic pain HYDROcodone 2021-08 Yes 2745 1{tbl} Take 1 Un justice -acetaminop 1-30 tablet by ity of hen 7.5-325 00:00: mouth [place] mg per 00 every 6 Medical tablet (six) Branch hours as needed for Pain. Indication s: chronic pain HYDROcodone 2021-08 Yes 2745 1{tbl} Take 1 Un justice -acetaminop 1-30 tablet by ity of hen 7.5-325 00:00: mouth [place] mg per 00 every 6 Medical tablet (six) Branch hours as needed for Pain. Indication s: chronic pain HYDROcodone 2021-08 Yes 2745 1{tbl} Take 1 Un justice -acetaminop 1-30 tablet by ity of hen 7.5-325 00:00: mouth [place] mg per 00 every 6 Medical tablet (six) Branch hours as needed for Pain. Indication s: chronic pain HYDROcodone 2021-08 Yes 2745 1{tbl} Take 1 Un justice -acetaminop 1-30 tablet by ity of hen 7.5-325 00:00: mouth [place] mg per 00 every 6 Medical tablet (six) Branch hours as needed for Pain. Indication s: chronic pain HYDROcodone 2021-08 Yes 2745 1{tbl} Take 1 Un justice -acetaminop 1-30 tablet by ity of hen 7.5-325 00:00: mouth [place] mg per 00 every 6 Medical tablet (six) Branch hours as needed for Pain. Indication s: chronic pain MUPIROCIN 2 2021-08 Yes [id number] APPLY U nivers % ointment 1-28 TOPICALLY ity of 00:00: TO THE [place] AFFECTED Medical AREA THREE Branch TIMES DAILY MUPIROCIN 2 2021-08 Yes [id number] APPLY U nivers % ointment 1-28 TOPICALLY ity of 00:00: TO THE [place] AFFECTED Medical AREA THREE Branch TIMES DAILY MUPIROCIN 2 2021-08 Yes [id number] APPLY U nivers % ointment 1-28 TOPICALLY ity of 00:00: TO THE [place] AFFECTED Medical AREA THREE Branch TIMES DAILY MUPIROCIN 2 2021-08 Yes [id number] APPLY U nivers % ointment 1-28 TOPICALLY ity of 00:00: TO THE [place] AFFECTED Medical AREA THREE Branch TIMES DAILY MUPIROCIN 2 2021-08 Yes [id number] APPLY U nivers % ointment 1-28 TOPICALLY ity of 00:00: TO THE [place] AFFECTED Medical AREA THREE Branch TIMES DAILY MUPIROCIN 2 2021-08 Yes [id number] APPLY U nivers % ointment 1-28 TOPICALLY ity of 00:00: TO THE [place] AFFECTED Medical AREA THREE Branch TIMES DAILY MUPIROCIN 2 2021-08 Yes [id number] APPLY U nivers % ointment 1-28 TOPICALLY ity of 00:00: TO THE [place] AFFECTED Medical AREA THREE Branch TIMES DAILY MUPIROCIN 2 2021-08 Yes [id number] APPLY U nivers % ointment 1-28 TOPICALLY ity of 00:00: TO THE [place] AFFECTED Medical AREA THREE Branch TIMES DAILY MUPIROCIN 2 2021-08 Yes [id number] APPLY U nivers % ointment 1-28 TOPICALLY ity of 00:00: TO THE [place] AFFECTED Medical AREA THREE Branch TIMES DAILY MUPIROCIN 2 2021-08 Yes [id number] APPLY U nivers % ointment 1-28 TOPICALLY ity of 00:00: TO THE [place] AFFECTED Medical AREA THREE Branch TIMES DAILY MUPIROCIN 2 2021-08 Yes [id number] APPLY U nivers % ointment 1-28 TOPICALLY ity of 00:00: TO THE [place] AFFECTED Medical AREA THREE Branch TIMES DAILY MUPIROCIN 2 2021-08 Yes [id number] APPLY U nivers % ointment 1-28 TOPICALLY ity of 00:00: TO THE [place] AFFECTED Medical AREA THREE Branch TIMES DAILY MUPIROCIN 2 2021-08 Yes [id number] APPLY U nivers % ointment 1-28 TOPICALLY ity of 00:00: TO THE [place] AFFECTED Medical AREA THREE Branch TIMES DAILY MUPIROCIN 2 2021-08 Yes [id number] APPLY U nivers % ointment 1-28 TOPICALLY ity of 00:00: TO THE [place] AFFECTED Medical AREA THREE Branch TIMES DAILY MUPIROCIN 2 2021-08 Yes [id number] APPLY U nivers % ointment 1-28 TOPICALLY ity of 00:00: TO THE [place] AFFECTED Medical AREA THREE Branch TIMES DAILY MUPIROCIN 2 2021-08 Yes [id number] APPLY U nivers % ointment 1-28 TOPICALLY ity of 00:00: TO THE [place] AFFECTED Medical AREA THREE Branch TIMES DAILY MUPIROCIN 2 2021-08 Yes [id number] APPLY U nivers % ointment 1-28 TOPICALLY ity of 00:00: TO THE [place] AFFECTED Medical AREA THREE Branch TIMES DAILY MUPIROCIN 2 2021-08 Yes [id number] APPLY U nivers % ointment 1-28 TOPICALLY ity of 00:00: TO THE [place] AFFECTED Medical AREA THREE Branch TIMES DAILY MUPIROCIN 2 2021-08 Yes [id number] APPLY U nivers % ointment 1-28 TOPICALLY ity of 00:00: TO THE [place] AFFECTED Medical AREA THREE Branch TIMES DAILY clonazePAM 2021-08 Yes [id number] 1mg Take 1 U nivers 1 mg tablet 1-21 tablet by ity of 00:00: mouth in [place] 00 the Medical morning Branch and 1 tablet at noon and 1 tablet in the evening. clonazePAM 2021-08 Yes [id number] 1mg Take 1 U nivers 1 mg tablet 1-21 tablet by ity of 00:00: mouth in [place] [address] the Medical morning Branch and 1 tablet at noon and 1 tablet in the evening. clonazePAM 2021- Yes [id number] 1mg Take 1 U nivers 1 mg tablet 1-21 tablet by ity of 00:00: mouth in [place] [address] the Medical morning Branch and 1 tablet at noon and 1 tablet in the evening. clonazePAM 2021- Yes [id number] 1mg Take 1 U nivers 1 mg tablet 1-21 tablet by ity of 00:00: mouth in [place] [address] the Medical morning Branch and 1 tablet at noon and 1 tablet in the evening. clonazePAM 2021- Yes [id number] 1mg Take 1 U nivers 1 mg tablet 1-21 tablet by ity of 00:00: mouth in [place] [address] the Medical morning Branch and 1 tablet at noon and 1 tablet in the evening. clonazePAM 2021- Yes [id number] 1mg Take 1 U nivers 1 mg tablet 1-21 tablet by ity of 00:00: mouth in [place] [address] the Medical morning Branch and 1 tablet at noon and 1 tablet in the evening. clonazePAM 2021- Yes [id number] 1mg Take 1 U nivers 1 mg tablet 1-21 tablet by ity of 00:00: mouth in [place] [address] the Medical morning Branch and 1 tablet at noon and 1 tablet in the evening. clonazePAM 2021- Yes [id number] 1mg Take 1 U nivers 1 mg tablet 1-21 tablet by ity of 00:00: mouth in [place] [address] the Medical morning Branch and 1 tablet at noon and 1 tablet in the evening. clonazePAM 2021- Yes [id number] 1mg Take 1 U nivers 1 mg tablet 1-21 tablet by ity of 00:00: mouth in [place] [address] the Medical morning Branch and 1 tablet at noon and 1 tablet in the evening. clonazePAM 2021-1 Yes [id number] 1mg Take 1 U nivers 1 mg tablet 1-21 tablet by ity of 00:00: mouth in [place] [address] the Medical morning Branch and 1 tablet at noon and 1 tablet in the evening. clonazePAM 2021-1 Yes [id number] 1mg Take 1 U nivers 1 mg tablet 1-21 tablet by ity of 00:00: mouth in [place] [address] the Medical morning Branch and 1 tablet at noon and 1 tablet in the evening. clonazePAM 2021- Yes [id number] 1mg Take 1 U nivers 1 mg tablet 1-21 tablet by ity of 00:00: mouth in [place] 00 the Medical morning Branch and 1 tablet at noon and 1 tablet in the evening. clonazePAM 2021-1 Yes [id number] 1mg Take 1 U nivers 1 mg tablet 1-21 tablet by ity of 00:00: mouth in [place] 00 the Medical morning Branch and 1 tablet at noon and 1 tablet in the evening. clonazePAM 2021- Yes [id number] 1mg Take 1 U nivers 1 mg tablet 1-21 tablet by ity of 00:00: mouth in [place] 00 the Medical morning Branch and 1 tablet at noon and 1 tablet in the evening. clonazePAM 2021-1 Yes [id number] 1mg Take 1 U nivers 1 mg tablet 1-21 tablet by ity of 00:00: mouth in [place] [address] the Medical morning Branch and 1 tablet at noon and 1 tablet in the evening. clonazePAM 2021- Yes [id number] 1mg Take 1 U nivers 1 mg tablet 1-21 tablet by ity of 00:00: mouth in [place] [address] the Medical morning Branch and 1 tablet at noon and 1 tablet in the evening. clonazePAM 2021-1 Yes [id number] 1mg Take 1 U nivers 1 mg tablet 1-21 tablet by ity of 00:00: mouth in [place] [address] the Medical morning Branch and 1 tablet at noon and 1 tablet in the evening. clonazePAM 2021-1 Yes [id number] 1mg Take 1 U nivers 1 mg tablet 1-21 tablet by ity of 00:00: mouth in [place] [address] the Medical morning Branch and 1 tablet at noon and 1 tablet in the evening. clonazePAM 2021-1 Yes [id number] 1mg Take 1 U nivers 1 mg tablet 1-21 tablet by ity of 00:00: mouth in [place] [address] the Medical morning Branch and 1 tablet at noon and 1 tablet in the evening. clonazePAM 2021-1 Yes [id number] 1mg Take 1 U nivers 1 mg tablet 1-21 tablet by ity of 00:00: mouth in [place] [address] the Medical morning Branch and 1 tablet at noon and 1 tablet in the evening. clonazePAM 2-1 Yes [id number] 1mg Take 1 U nivers 1 mg tablet 1-21 tablet by ity of 00:00: mouth in [place] 00 the Medical morning Branch and 1 tablet at noon and 1 tablet in the evening. furosemide 2022-1 Yes 80mg Take 1 [facility] rs 80 mg 1-09 tablet by ity of tablet 00:00: mouth in [place] the Medical morning. Branch furosemide 2022-1 Yes 80mg Take 1 [facility] rs 80 mg 1-09 tablet by ity of tablet 00:00: mouth in [place] the Medical morning. Branch furosemide 2022-1 Yes 80mg Take 1 [facility] rs 80 mg 1-09 tablet by ity of tablet 00:00: mouth in [place] the Medical morning. Branch furosemide 2022-1 Yes 80mg Take 1 [facility] rs 80 mg 1-09 tablet by ity of tablet 00:00: mouth in [place] the Medical morning. Branch furosemide 2-1 Yes 80mg Take 1 [facility] rs 80 mg 1-09 tablet by ity of tablet 00:00: mouth in [place] the Medical morning. Branch furosemide 2-1 Yes 80mg Take 1 [facility] rs 80 mg 1-09 tablet by ity of tablet 00:00: mouth in [place] the Medical morning. Branch furosemide 2022-1 Yes 80mg Take 1 [facility] rs 80 mg 1-09 tablet by ity of tablet 00:00: mouth in [place] the Medical morning. Branch furosemide 2-1 Yes 80mg Take 1 [facility] rs 80 mg 1-09 tablet by ity of tablet 00:00: mouth in [place] the Medical morning. Branch furosemide 2022-1 Yes 80mg Take 1 [facility] rs 80 mg 1-09 tablet by ity of tablet 00:00: mouth in [place] the Medical morning. Branch furosemide 2022-1 Yes 80mg Take 1 [facility] rs 80 mg 1-09 tablet by ity of tablet 00:00: mouth in [place] 00 the Medical morning. Branch furosemide 2022-1 Yes 80mg Take 1 [facility] rs 80 mg 1-09 tablet by ity of tablet 00:00: mouth in [place] 00 the Medical morning. Branch furosemide 2022-1 Yes 80mg Take 1 [facility] rs 80 mg 1-09 tablet by ity of tablet 00:00: mouth in [place] 00 the Medical morning. Branch furosemide 2022-1 Yes 80mg Take 1 [facility] rs 80 mg 1-09 tablet by ity of tablet 00:00: mouth in [place] 00 the Medical morning. Branch furosemide 2021- Yes 80mg Take 1 [facility] rs 80 mg 1-09 tablet by ity of tablet 00:00: mouth in [place] 00 the Medical morning. Branch furosemide 2021- Yes 80mg Take 1 [facility] rs 80 mg 1-09 tablet by ity of tablet 00:00: mouth in [place] 00 the Medical morning. Branch furosemide 2021- Yes 80mg Take 1 [facility] rs 80 mg 1-09 tablet by ity of tablet 00:00: mouth in [place] 00 the Medical morning. Branch furosemide 2021- Yes 80mg Take 1 [facility] rs 80 mg 1-09 tablet by ity of tablet 00:00: mouth in [place] 00 the Medical morning. Branch furosemide 2021- Yes 80mg Take 1 [facility] rs 80 mg 1-09 tablet by ity of tablet 00:00: mouth in [place] 00 the Medical morning. Branch furosemide 2021- Yes 80mg Take 1 [facility] rs 80 mg 1-09 tablet by ity of tablet 00:00: mouth in [place] 00 the Medical morning. Branch furosemide 2021-08 2022- No 80mg Take 1 [facility] ers 80 mg 1-09 12-08 tablet by ity of tablet 00:00: 00:00 mouth in [place] 00 :00 the Medical morning. Branch furosemide 2021-2- No 80mg Take 1 [facility] ers 80 mg -09 12-08 tablet by ity of tablet 00:00: 00:00 mouth in [place] 00 :00 the Medical morning. Branch NIFEdipine 2021- Yes [id number] 30mg Take 1 U nivers ER 30 mg 1-08 tablet by ity of tablet 00:00: mouth in [place] the Medical morning Branch and 1 tablet in the evening. NIFEdipine 2021-1 Yes [id number] 30mg Take 1 U nivers ER 30 mg 1-08 tablet by ity of tablet 00:00: mouth in [place] the Medical morning Branch and 1 tablet in the evening. NIFEdipine 2021-1 Yes [id number] 30mg Take 1 [facility] n[facility] ER 30 mg 1-08 tablet by ity of tablet 00:00: mouth in [place] the Medical morning Branch and 1 tablet in the evening. NIFEdipine 2021-1 Yes [id number] 30mg Take 1 [facility] nivers ER 30 mg 1-08 tablet by ity of tablet 00:00: mouth in [place] 00 the Medical morning Branch and 1 tablet in the evening. NIFEdipine 2021- Yes [id number] 30mg Take 1 [facility] ER 30 mg 1-08 tablet by ity of tablet 00:00: mouth in [place] 00 the Medical morning Branch and 1 tablet in the evening. NIFEdipine 2021-1 Yes [id number] 30mg Take 1 [facility] n[facility] ER 30 mg 1-08 tablet by ity of tablet 00:00: mouth in [place] 00 the Medical morning Branch and 1 tablet in the evening. NIFEdipine 2021-08 Yes [id number] 30mg Take 1 [facility] n[facility] ER 30 mg 1-08 tablet by ity of tablet 00:00: mouth in [place] 00 the Medical morning Branch and 1 tablet in the evening. NIFEdipine 2021-08 Yes [id number] 30mg Take 1 U nivers ER 30 mg 1-08 tablet by ity of tablet 00:00: mouth in [place] [address] the Medical morning Branch and 1 tablet in the evening. NIFEdipine 2021-08 Yes [id number] 30mg Take 1 U nivers ER 30 mg 1-08 tablet by ity of tablet 00:00: mouth in [place] [address] the Medical morning Branch and 1 tablet in the evening. NIFEdipine 2021-08 Yes [id number] 30mg Take 1 [facility] nivers ER 30 mg 1-08 tablet by ity of tablet 00:00: mouth in [place] [address] the Medical morning Branch and 1 tablet in the evening. NIFEdipine 1 Yes [id number] 30mg Take 1 U nivers ER 30 mg 1-08 tablet by ity of tablet 00:00: mouth in [place] 00 the Medical morning Branch and 1 tablet in the evening. NIFEdipine 2021-1 Yes [id number] 30mg Take 1 [facility] nivers ER 30 mg 1-08 tablet by ity of tablet 00:00: mouth in [place] [address] the Medical morning Branch and 1 tablet in the evening. NIFEdipine 2021-1 Yes [id number] 30mg Take 1 [facility] n[facility] ER 30 mg 1-08 tablet by ity of tablet 00:00: mouth in [place] [address] the Medical morning Branch and 1 tablet in the evening. NIFEdipine 2021-1 Yes [id number] 30mg Take 1 U nivers ER 30 mg 1-08 tablet by ity of tablet 00:00: mouth in [place] [address] the Medical morning Branch and 1 tablet in the evening. NIFEdipine 2021-1 Yes [id number] 30mg Take 1 [facility] nivers ER 30 mg 1-08 tablet by ity of tablet 00:00: mouth in [place] 00 the Medical morning Branch and 1 tablet in the evening. NIFEdipine 2021-1 Yes [id number] 30mg Take 1 U nivers ER 30 mg 1-08 tablet by ity of tablet 00:00: mouth in [place] 00 the Medical morning Branch and 1 tablet in the evening. NIFEdipine 2021-1 Yes [id number] 30mg Take 1 [facility] nivers ER 30 mg 1-08 tablet by ity of tablet 00:00: mouth in [place] 00 the Medical morning Branch and 1 tablet in the evening. NIFEdipine 1 Yes [id number] 30mg Take 1 [facility] nivers ER 30 mg 1-08 tablet by ity of tablet 00:00: mouth in [place] 00 the Medical morning Branch and 1 tablet in the evening. NIFEdipine 2021-08 Yes [id number] 30mg Take 1 U nivers ER 30 mg 1-08 tablet by ity of tablet 00:00: mouth in [place] 00 the Medical morning Branch and 1 tablet in the evening. NIFEdipine 2021-08 Yes [id number] 30mg Take 1 [facility] nivers ER 30 mg 1-08 tablet by ity of tablet 00:00: mouth in [place] 00 the Medical morning Branch and 1 tablet in the evening. NIFEdipine 1 Yes [id number] 30mg Take 1 U nivers ER 30 mg 1-08 tablet by ity of tablet 00:00: mouth in [place] 00 the Medical morning Branch and 1 tablet in the evening. NIFEdipine 1 Yes [id number] 30mg Take 1 U nivers ER 30 mg 1-08 tablet by ity of tablet 00:00: mouth in [place] 00 the Medical morning Branch and 1 tablet in the evening. NIFEdipine 1 Yes [id number] 30mg Take 1 U nivers ER 30 mg 1-08 tablet by ity of tablet 00:00: mouth in [place] 00 the Medical morning Branch and 1 tablet in the evening. NIFEdipine 2021-1 Yes [id number] 30mg Take 1 U nivers ER 30 mg 1-08 tablet by ity of tablet 00:00: mouth in [place] [address] the Medical morning Branch and 1 tablet in the evening. NIFEdipine 2021-1 Yes [id number] 30mg Take 1 U nivers ER 30 mg 1-08 tablet by ity of tablet 00:00: mouth in [place] 00 the Medical morning Branch and 1 tablet in the evening. NIFEdipine 2021-08 Yes [id number] 30mg Take 1 U nivers ER 30 mg 1-08 tablet by ity of tablet 00:00: mouth in [place] 00 the Medical morning Branch and 1 tablet in the evening. NIFEdipine 2021-08 Yes [id number] 30mg Take 1 U nivers ER 30 mg 1-08 tablet by ity of tablet 00:00: mouth in [place] 00 the Medical morning Branch and 1 tablet in the evening. NIFEdipine 2021-08 Yes [id number] 30mg Take 1 U nivers ER 30 mg 1-08 tablet by ity of tablet 00:00: mouth in [place] 00 the Medical morning Branch and 1 tablet in the evening. NIFEdipine 2021-08 Yes [id number] 30mg Take 1 U nivers ER 30 mg 1-08 tablet by ity of tablet 00:00: mouth in [place] 00 the Medical morning Branch and 1 tablet in the evening. NIFEdipine 2021-08 Yes [id number] 30mg Take 1 U nivers ER 30 mg 1-08 tablet by ity of tablet 00:00: mouth in [place] 00 the Medical morning Branch and 1 tablet in the evening. NIFEdipine 2021-08 Yes [id number] 30mg Take 1 U nivers ER 30 mg 1-08 tablet by ity of tablet 00:00: mouth in [place] 00 the Medical morning Branch and 1 tablet in the evening. NIFEdipine 2021-08 Yes [id number] 30mg Take 1 U nivers ER 30 mg 1-08 tablet by ity of tablet 00:00: mouth in [place] 00 the Medical morning Branch and 1 tablet in the evening. NIFEdipine 2021-08 Yes [id number] 30mg Take 1 [facility] nivers ER 30 mg 1-08 tablet by ity of tablet 00:00: mouth in [place] 00 the Medical morning Branch and 1 tablet in the evening. NIFEdipine 2021-08- No [id number] 30mg Take 1 [facility] ER 30 mg 1-08 12-19 tablet by ity o f tablet 00:00: 00:00 mouth in [place] 00 :00 the Medical morning Branch and 1 tablet in the evening. NIFEdipine 2021-08- No [id number] 30mg Take 1 [facility] ER 30 mg 1-08 12-19 tablet by ity o f tablet 00:00: 00:00 mouth in [place] 00 :00 the Medical morning Branch and 1 tablet in the evening. insulin 2022-1 Yes [id number] ADMINISTER [facility] - 62 UNITS ity of ([place] 00:00[place] SKIN THREE Medi [facility] U-200) 200 TIMES Branch unit/mL (3 DAILY mL) InPn insulin 2021-08 Yes [id number] ADMINISTER [facility] 08-05 62 UNITS ity of ([place] 00:00: [place] 00 SKIN THREE [facility] U-200) 200 TIMES Branch unit/mL (3 DAILY mL) InPn insulin 2021-08 Yes [id number] ADMINISTER [facility] 08-05 62 UNITS ity of ([place] 00:00: [place] THE [place] 00 SKIN THREE [facility] U-200) 200 TIMES Branch unit/mL (3 DAILY mL) InPn insulin 2021-08 Yes [id number] ADMINISTER [facility] 08-05 62 UNITS ity of ([place] 00:00: [place] THE [place] 00 SKIN THREE [facility] U-200) 200 TIMES Branch unit/mL (3 DAILY mL) InPn insulin 2021-08 Yes [id number] ADMINISTER [facility] 08-05 62 UNITS ity of ([place] 00:00: UND[place] THE [place] 00 SKIN THREE [facility] U-200) 200 TIMES Branch unit/mL (3 DAILY mL) InPn insulin 2021-08 Yes [id number] ADMINISTER [facility] 08-05 62 UNITS ity of ([place]ES[place] 00:00: UND[place] THE [place]LE[place] 00 SKIN THREE [facility] U-200) 200 TIMES Branch unit/mL (3 DAILY mL) InPn insulin 2021-08 Yes [id number] ADMINISTER [facility] 03 62 UNITS ity of ([place] 00:00: [place] THE [place] 00 SKIN THREE [facility] U-200) 200 TIMES Branch unit/mL (3 DAILY mL) InPn insulin 2021-08 Yes [id number] ADMINISTER [facility] 03 62 UNITS ity of ([place] 00:00: [place] THE [place] 00 SKIN THREE [facility] U-200) 200 TIMES Branch unit/mL (3 DAILY mL) InPn insulin 2021-08 Yes [id number] ADMINISTER [facility] 1-03 62 UNITS ity of ([place] 00:00: [place] THE [place] 00 SKIN THREE [facility] U-200) 200 TIMES Branch unit/mL (3 DAILY mL) InPn insulin 2021-08 Yes [id number] ADMINISTER [facility] -03 62 UNITS ity of ([place] 00:00: [place] THE [place]LE[place] 00 SKIN THREE [facility] U-200) 200 TIMES Branch unit/mL (3 DAILY mL) InPn insulin 2021-08 Yes [id number] ADMINISTER [facility] 03 62 UNITS ity of ([place] 00:00: [place] THE [place]LE[place] 00 SKIN THREE [facility] U-200) 200 TIMES Branch unit/mL (3 DAILY mL) InPn insulin 2021-08 Yes [id number] ADMINISTER [facility] 08-05 62 UNITS ity of ([place] 00:00: [place] THE [place] 00 SKIN THREE [facility] U-200) 200 TIMES Branch unit/mL (3 DAILY mL) InPn insulin 2021-08 Yes [id number] ADMINISTER [facility] 03 62 UNITS ity of ([place] 00:00: [place] THE [place]LE[place] 00 SKIN THREE [facility] U-200) 200 TIMES Branch unit/mL (3 DAILY mL) InPn insulin 2021-08 Yes [id number] ADMINISTER [facility] 03 62 UNITS ity of ([place] 00:00: [place] THE [place] 00 SKIN THREE [facility] U-200) 200 TIMES Branch unit/mL (3 DAILY mL) InPn insulin 2021-08 Yes [id number] ADMINISTER [facility] 03 62 UNITS ity of ([place] 00:00: [place] THE [place]LE[place] 00 SKIN THREE [facility] U-200) 200 TIMES Branch unit/mL (3 DAILY mL) InPn insulin 2021-08 Yes [id number] ADMINISTER [facility] -03 62 UNITS ity of ([place] 00:00: [place] THE [place]LE[place] 00 SKIN THREE [facility] U-200) 200 TIMES Branch unit/mL (3 DAILY mL) InPn insulin 2021-08 Yes [id number] ADMINISTER [facility] -03 62 UNITS ity of ([place] 00:00: [place] THE [place] 00 SKIN THREE [facility] U-200) 200 TIMES Branch unit/mL (3 DAILY mL) InPn insulin 2021-08 Yes [id number] ADMINISTER [facility] 08-05 62 UNITS ity of ([place] 00:00: [place] THE [place]LE[place] 00 SKIN THREE [facility] U-200) 200 TIMES Branch unit/mL (3 DAILY mL) InPn insulin 2021-08 Yes [id number] ADMINISTER [facility] 08-05 62 UNITS ity of ([place] 00:00: [place] THE [place] 00 SKIN THREE [facility] U-200) 200 TIMES Branch unit/mL (3 DAILY mL) InPn insulin 2021-08 Yes [id number] ADMINISTER [facility] 08-05 62 UNITS ity of ([place] 00:00: [place] THE [place]LE[place] 00 SKIN THREE [facility] U-200) 200 TIMES Branch unit/mL (3 DAILY mL) InPn insulin 2021-08 Yes [id number] ADMINISTER [facility] 08-05 62 UNITS ity of ([place] 00:00: [place] THE [place] 00 SKIN THREE [facility] U-200) 200 TIMES Branch unit/mL (3 DAILY mL) InPn insulin 2021-08 Yes [id number] ADMINISTER [facility] 08-05 62 UNITS ity of ([place] 00:00: [place] THE [place] 00 SKIN THREE [facility] U-200) 200 TIMES Branch unit/mL (3 DAILY mL) InPn insulin 2021-08 Yes [id number] ADMINISTER [facility] 03 62 UNITS ity of ([place] 00:00: [place] THE [place] 00 SKIN THREE [facility] U-200) 200 TIMES Branch unit/mL (3 DAILY mL) InPn insulin 2021-08 Yes [id number] ADMINISTER [facility] -03 62 UNITS ity of ([place] 00:00: [place] THE [place] 00 SKIN THREE [facility] U-200) 200 TIMES Branch unit/mL (3 DAILY mL) InPn insulin 2021-08 Yes [id number] ADMINISTER [facility] -03 62 UNITS ity of ([place] 00:00: [place] THE [place] 00 SKIN THREE [facility] U-200) 200 TIMES Branch unit/mL (3 DAILY mL) InPn insulin 2021-08 Yes [id number] ADMINISTER [facility] 08-05 62 UNITS ity of ([place] 00:00: [place] THE [place] 00 SKIN THREE [facility] U-200) 200 TIMES Branch unit/mL (3 DAILY mL) InPn insulin 2021-08 Yes [id number] ADMINISTER [facility] 08-05 62 UNITS ity of ([place] 00:00: [place] THE [place] 00 SKIN THREE [facility] U-200) 200 TIMES Branch unit/mL (3 DAILY mL) InPn insulin 2021-08 Yes [id number] ADMINISTER [facility] 08-05 62 UNITS ity of ([place] 00:00: [place] THE [place] 00 SKIN THREE [facility] U-200) 200 TIMES Branch unit/mL (3 DAILY mL) InPn insulin 2021-08 Yes [id number] ADMINISTER [facility] 08-05 62 UNITS ity of ([place] 00:00: [place] THE [place] 00 SKIN THREE [facility] U-200) 200 TIMES Branch unit/mL (3 DAILY mL) InPn insulin 2021-08 Yes [id number] ADMINISTER [facility] 08-05 62 UNITS ity of ([place] 00:00: [place] THE [place] 00 SKIN THREE [facility] U-200) 200 TIMES Branch unit/mL (3 DAILY mL) InPn insulin 2021-08 Yes [id number] ADMINISTER [facility] 08-05 62 UNITS ity of ([place] 00:00: [place] THE [place]LE[place] 00 SKIN THREE [facility] U-200) 200 TIMES Branch unit/mL (3 DAILY mL) InPn insulin 2021-08 Yes [id number] ADMINISTER [facility] 03 62 UNITS ity of ([place] 00:00: [place] THE [place] 00 SKIN THREE [facility] U-200) 200 TIMES Branch unit/mL (3 DAILY mL) InPn insulin 2021-08 Yes [id number] ADMINISTER [facility] 1-03 62 UNITS ity of ([place] 00:00: [place] 00 SKIN THREE [facility]i [facility] U-200) 200 TIMES Branch unit/mL (3 DAILY mL) In insulin 2021-08 Yes [id number] ADMINISTER [facility] degludec 08-05 62 UNITS ity of (TRESIBA 00:00: [place]LE[place] 00 SKIN THREE Medi ash[facility] U-200) 200 TIMES Branch unit/mL (3 DAILY mL) In insulin 2021-08 Yes [id number] ADMINISTER [facility] degludec 08-05 62 UNITS ity of (TR[place] 00:00: [place] THE [place] 00 SKIN THREE Medi ash[facility] U-200) 200 TIMES Branch unit/mL (3 DAILY mL) In insulin 2021-08 Yes [id number] ADMINISTER [facility] degludec 08-05 62 UNITS ity of ([place] 00:00: [place] THE [place] 00 SKIN THREE Medi ash[facility] U-200) 200 TIMES Branch unit/mL (3 DAILY mL) In insulin 2021-08 Yes [id number] ADMINISTER [facility] degludec 08-05 62 UNITS ity of ([place] 00:00: [place] THE [place] 00 SKIN THREE Medi ashley U-200) 200 TIMES Branch unit/mL (3 DAILY mL) In HYDROcodone 2021-08 Yes 2745 1{tbl} Take 1 Un [facility] -acetaminop 1-02 tablet by ity of hen 7.5-325 00:00: mouth [place] mg per 00 every 6 Medical tablet (six) Branch hours as needed for Pain. Indication s: chronic pain HYDROcodone 2021-08 Yes 2745 1{tbl} Take 1 Un [facility] -acetaminop 1-02 tablet by ity of hen 7.5-325 00:00: mouth [place] mg per 00 every 6 Medical tablet (six) Branch hours as needed for Pain. Indication s: chronic pain HYDROcodone 2021-08 Yes 2745 1{tbl} Take 1 [facility] -acetaminop 1-02 tablet by ity of hen 7.5-325 00:00: mouth [place] mg per 00 every 6 Medical tablet (six) Branch hours as needed for Pain. Indication s: chronic pain HYDROcodone 2021-08 Yes 2745 1{tbl} Take 1 Un [facility] -acetaminop 1-02 tablet by ity of hen 7.5-325 00:00: mouth [place] mg per 00 every 6 Medical tablet (six) Branch hours as needed for Pain. Indication s: chronic pain HYDROcodone 2021-08 Yes 2745 1{tbl} Take 1 [facility] -acetaminop 1-02 tablet by ity of hen 7.5-325 00:00: mouth [place] mg per 00 every 6 Medical tablet (six) Branch hours as needed for Pain. Indication s: chronic pain HYDROcodone 2021-08 Yes 2745 1{tbl} Take 1 [facility] -acetaminop 1-02 tablet by ity of hen 7.5-325 00:00: mouth [place] mg per 00 every 6 Medical tablet (six) Branch hours as needed for Pain. Indication s: chronic pain HYDROcodone 2021-08 Yes 2745 1{tbl} Take 1 Un [facility] -acetaminop 1-02 tablet by ity of hen 7.5-325 00:00: mouth [place] mg per 00 every 6 Medical tablet (six) Branch hours as needed for Pain. Indication s: chronic pain HYDROcodone 2021-08 Yes 2745 1{tbl} Take 1 Un [facility] -acetaminop 1-02 tablet by ity of hen 7.5-325 00:00: mouth [place] mg per 00 every 6 Medical tablet (six) Branch hours as needed for Pain. Indication s: chronic pain HYDROcodone 2021-08 Yes 2745 1{tbl} Take 1 [facility] -acetaminop 1-02 tablet by [facility] hen 7.5-325 00:00: mouth [place] mg per 00 every 6 Medical tablet (six) Branch hours as needed for Pain. Indication s: chronic pain HYDROcodone 2021-08 Yes 2745 1{tbl} Take 1 [facility] -acetaminop 1-02 tablet by [facility] hen 7.5-325 00:00: mouth [place] mg per 00 every 6 Medical tablet (six) Branch hours as needed for Pain. Indication s: chronic pain HYDROcodone 2021-08 Yes 2745 1{tbl} Take 1 [facility] -acetaminop 1-02 tablet by [facility] hen 7.5-325 00:00: mouth [place] mg per 00 every 6 Medical tablet (six) Branch hours as needed for Pain. Indication s: chronic pain HYDROcodone 2021-08 Yes 2745 1{tbl} Take 1 [facility] -acetaminop 1-02 tablet by [facility] hen 7.5-325 00:00: mouth [place] mg per 00 every 6 Medical tablet (six) Branch hours as needed for Pain. Indication s: chronic pain HYDROcodone 2021-08 Yes 2745 1{tbl} Take 1 [facility] -acetaminop 1-02 tablet by [facility] hen 7.5-325 00:00: mouth [place] mg per 00 every 6 Medical tablet (six) Branch hours as needed for Pain. Indication s: chronic pain HYDROcodone 2021-08 Yes 2745 1{tbl} Take 1 [facility] -acetaminop 1-02 tablet by [facility] hen 7.5-325 00:00: mouth [place] mg per 00 every 6 Medical tablet (six) Branch hours as needed for Pain. Indication s: chronic pain HYDROcodone 2021-08 Yes 2745 1{tbl} Take 1 [facility] -acetaminop 1-02 tablet by [facility] hen 7.5-325 00:00: mouth [place] mg per 00 every 6 Medical tablet (six) Branch hours as needed for Pain. Indication s: chronic pain HYDROcodone 2021-08 Yes 2745 1{tbl} Take 1 [facility] -acetaminop 1-02 tablet by [facility] hen 7.5-325 00:00: mouth [place] mg per 00 every 6 Medical tablet (six) Branch hours as needed for Pain. Indication s: chronic pain HYDROcodone 2021-08 Yes 2745 1{tbl} Take 1 [facility] -acetaminop 1-02 tablet by [facility] hen 7.5-325 00:00: mouth [place] mg per 00 every 6 Medical tablet (six) Branch hours as needed for Pain. Indication s: chronic pain HYDROcodone 2021-08 Yes 2745 1{tbl} Take 1 [facility] -acetaminop 1-02 tablet by [facility] hen 7.5-325 00:00: mouth [place] mg per 00 every 6 Medical tablet (six) Branch hours as needed for Pain. Indication s: chronic pain HYDROcodone 2021-08 Yes 2745 1{tbl} Take 1 [facility] -acetaminop 1-02 tablet by [facility] hen 7.5-325 00:00: mouth [place] mg per 00 every 6 Medical tablet (six) Branch hours as needed for Pain. Indication s: chronic pain HYDROcodone 2021-08 Yes 2745 1{tbl} Take 1 [facility] -acetaminop 1-02 tablet by [facility] hen 7.5-325 00:00: mouth [place] mg per 00 every 6 Medical tablet (six) Branch hours as needed for Pain. Indication s: chronic pain HYDROcodone 2021-08 Yes 2745 1{tbl} Take 1 [facility] -acetaminop 1-02 tablet by [facility] hen 7.5-325 00:00: mouth [place] mg per 00 every 6 Medical tablet (six) Branch hours as needed for Pain. Indication s: chronic pain HYDROcodone 2021-08 Yes 2745 1{tbl} Take 1 [facility] -acetaminop 1-02 tablet by [facility] hen 7.5-325 00:00: mouth [place] mg per 00 every 6 Medical tablet (six) Branch hours as needed for Pain. Indication s: chronic pain HYDROcodone 2021-08- No 2745 1{tbl} Take 1 [facility] -acetaminop 1-02 11-30 tablet by [facility] hen 7.5-325 00:00: 00:00 mouth [place] mg per 00 :00 every 6 Medical tablet (six) Branch hours as needed for Pain. Indication s: chronic pain HYDROcodone 2021-08- No 2745 1{tbl} Take 1 [facility] -acetaminop 1-02 11-30 tablet by [facility] of hen 7.5-325 00:00: 00:00 mouth [place] mg per 00 :00 every 6 Medical tablet (six) Branch hours as needed for Pain. Indication s: chronic pain AMLODIPINE 2021-08 Yes [id number] 5mg TAKE 1 [facility] 5 mg tablet 0-28 TABLET BY [facility] of 00:00: MOUTH [place] 00 DAILY Medical Branch AMLODIPINE 2021-08 Yes [id number] 5mg TAKE 1 [facility] 5 mg tablet 0-28 TABLET BY [facility] of 00:00: MOUTH [place] 00 DAILY Medical Branch AMLODIPINE 2021-08 Yes [id number] 5mg TAKE 1 [facility] 5 mg tablet 0-28 TABLET BY [facility] of 00:00: MOUTH [place] 00 DAILY Medical Branch AMLODIPINE 2021-08 Yes [id number] 5mg TAKE 1 [facility] 5 mg tablet 0-28 TABLET BY [facility] of 00:00: MOUTH [place] 00 DAILY Medical Branch AMLODIPINE 2021- Yes [id number] 5mg TAKE 1 [facility] 5 mg tablet 0-28 TABLET BY [facility] of 00:00: MOUTH [place] 00 DAILY Medical Branch AMLODIPINE 2021-2021- No [id number] 5mg TAKE 1 [facility] 5 mg tablet 0-28 -08 TABLET BY it y of 00:00: 00:00 MOUTH [place] 00 :00 DAILY Medical Branch AMLODIPINE 2021-2021- No [id number] 5mg TAKE 1 [facility] 5 mg tablet 0-28 -08 TABLET BY it y of 00:00: 00:00 MOUTH [place] 00 :00 DAILY Medical Branch AMLODIPINE 2021-2021- No [id number] 5mg TAKE 1 [facility] 5 mg tablet 0-28 -08 TABLET BY it y of 00:00: 00:00 MOUTH [place] 00 :00 DAILY Medical Branch TIZANIDINE 2021- Yes [id number] TAKE 1 [facility] 4 mg tablet 0-24 TABLET BY [facility] of 00:00: MOUTH [place] 00 EVERY 8 Medical HOURS Branch NEEDED TIZANIDINE 2021- Yes [id number] TAKE 1 [facility] 4 mg tablet 0-24 TABLET BY [facility] of 00:00: MOUTH [place] 00 EVERY 8 Medical HOURS Branch NEEDED TIZANIDINE 2021- Yes [id number] TAKE 1 [facility] 4 mg tablet 0-24 TABLET BY [facility] of 00:00: MOUTH [place] 00 EVERY 8 Medical HOURS Branch NEEDED TIZANIDINE 2021- Yes [id number] TAKE 1 [facility] 4 mg tablet 0-24 TABLET BY [facility] of 00:00: MOUTH [place] 00 EVERY 8 Medical HOURS Branch NEEDED TIZANIDINE 2021- Yes [id number] TAKE 1 [facility] 4 mg tablet 0-24 TABLET BY [facility] of 00:00: MOUTH [place] 00 EVERY 8 Medical HOURS Branch NEEDED TIZANIDINE 2021- Yes [id number] TAKE 1 [facility] 4 mg tablet 0-24 TABLET BY [facility] of 00:00: MOUTH [place] 00 EVERY 8 Medical HOURS Branch NEEDED TIZANIDINE 2021-1 Yes [id number] TAKE 1 [facility] 4 mg tablet 0-24 TABLET BY [facility] of 00:00: MOUTH [place] 00 EVERY 8 Medical HOURS Branch NEEDED TIZANIDINE 2021- Yes [id number] TAKE 1 [facility] 4 mg tablet 0-24 TABLET BY [facility] of 00:00: MOUTH [place] 00 EVERY 8 Medical HOURS Branch NEEDED TIZANIDINE 2-1 Yes [id number] TAKE 1 [facility] 4 mg tablet 0-24 TABLET BY [facility] of 00:00: MOUTH [place] 00 EVERY 8 Medical HOURS Branch NEEDED TIZANIDINE 2-1 Yes [id number] TAKE 1 [facility] 4 mg tablet 0-24 TABLET BY [facility] of 00:00: MOUTH [place] 00 EVERY 8 Medical HOURS Branch NEEDED TIZANIDINE 2-1 Yes [id number] TAKE 1 [facility] 4 mg tablet 0-24 TABLET BY [facility] of 00:00: MOUTH [place] 00 EVERY 8 Medical HOURS Branch NEEDED TIZANIDINE 2-1 Yes [id number] TAKE 1 [facility] 4 mg tablet 0-24 TABLET BY [facility] of 00:00: MOUTH [place] 00 EVERY 8 Medical HOURS Branch NEEDED TIZANIDINE 2-1 Yes [id number] TAKE 1 [facility] 4 mg tablet 0-24 TABLET BY [facility] of 00:00: MOUTH [place] 00 EVERY 8 Medical HOURS Branch NEEDED TIZANIDINE 2-1 Yes [id number] TAKE 1 [facility] 4 mg tablet 0-24 TABLET BY [facility] of 00:00: MOUTH [place] 00 EVERY 8 Medical HOURS Branch NEEDED TIZANIDINE 2-1 Yes [id number] TAKE 1 [facility] 4 mg tablet 0-24 TABLET BY [facility] of 00:00: MOUTH [place] 00 EVERY 8 Medical HOURS Branch NEEDED TIZANIDINE 2-1 Yes [id number] TAKE 1 [facility] 4 mg tablet 0-24 TABLET BY [facility] of 00:00: MOUTH [place] 00 EVERY 8 Medical HOURS Branch NEEDED TIZANIDINE 2-1 Yes [id number] TAKE 1 [facility] 4 mg tablet 0-24 TABLET BY [facility] of 00:00: MOUTH [place] 00 EVERY 8 Medical HOURS Branch NEEDED TIZANIDINE 2-1 Yes [id number] TAKE 1 [facility] 4 mg tablet 0-24 TABLET BY [facility] of 00:00: MOUTH [place] 00 EVERY 8 Medical HOURS Branch NEEDED TIZANIDINE 2-1 Yes [id number] TAKE 1 [facility] 4 mg tablet 0-24 TABLET BY [facility] of 00:00: MOUTH [place] 00 EVERY 8 Medical HOURS Branch NEEDED TIZANIDINE 2-1 Yes [id number] TAKE 1 [facility] 4 mg tablet 0-24 TABLET BY [facility] of 00:00: MOUTH [place] 00 EVERY 8 Medical HOURS Branch NEEDED TIZANIDINE 2022-1 Yes [id number] TAKE 1 [facility] 4 mg tablet 0-24 TABLET BY [facility] of 00:00: MOUTH [place] 00 EVERY 8 Medical HOURS Branch NEEDED TIZANIDINE 2-1 Yes [id number] TAKE 1 [facility] 4 mg tablet 0-24 TABLET BY [facility] of 00:00: MOUTH [place] 00 EVERY 8 Medical HOURS Branch NEEDED TIZANIDINE 2-1 Yes [id number] TAKE 1 [facility] 4 mg tablet 0-24 TABLET BY [facility] of 00:00: MOUTH [place] 00 EVERY 8 Medical HOURS Branch NEEDED TIZANIDINE 2-1 Yes [id number] TAKE 1 [facility] 4 mg tablet 0-24 TABLET BY [facility] of 00:00: MOUTH [place] 00 EVERY 8 Medical HOURS Branch NEEDED TIZANIDINE 2-1 Yes [id number] TAKE 1 [facility] 4 mg tablet 0-24 TABLET BY [facility] of 00:00: MOUTH [place] 00 EVERY 8 Medical HOURS Branch NEEDED TIZANIDINE 2-1 Yes [id number] TAKE 1 [facility] 4 mg tablet 0-24 TABLET BY [facility] of 00:00: MOUTH [place] 00 EVERY 8 Medical HOURS Branch NEEDED TIZANIDINE 2-1 Yes [id number] TAKE 1 [facility] 4 mg tablet 0-24 TABLET BY [facility] of 00:00: MOUTH [place] 00 EVERY 8 Medical HOURS Branch NEEDED TIZANIDINE 2-1 Yes [id number] TAKE 1 [facility] 4 mg tablet 0-24 TABLET BY [facility] of 00:00: MOUTH [place] 00 EVERY 8 Medical HOURS Branch NEEDED TIZANIDINE 2-1 Yes [id number] TAKE 1 [facility] 4 mg tablet 0-24 TABLET BY [facility] of 00:00: MOUTH [place] 00 EVERY 8 Medical HOURS Branch NEEDED TIZANIDINE 2-1 Yes [id number] TAKE 1 [facility] 4 mg tablet 0-24 TABLET BY [facility] of 00:00: MOUTH [place] 00 EVERY 8 Medical HOURS Branch NEEDED TIZANIDINE 2-1 Yes [id number] TAKE 1 [facility] 4 mg tablet 0-24 TABLET BY [facility] of 00:00: MOUTH [place] 00 EVERY 8 Medical HOURS Branch NEEDED TIZANIDINE 2-1 Yes [id number] TAKE 1 [facility] 4 mg tablet 0-24 TABLET BY [facility] of 00:00: MOUTH [place] 00 EVERY 8 Medical HOURS Branch NEEDED TIZANIDINE 2-1 Yes [id number] TAKE 1 [facility] 4 mg tablet 0-24 TABLET BY [facility] of 00:00: MOUTH [place] 00 EVERY 8 Medical HOURS Branch NEEDED TIZANIDINE 2-1 Yes [id number] TAKE 1 [facility] 4 mg tablet 0-24 TABLET BY [facility] of 00:00: MOUTH [place] 00 EVERY 8 Medical HOURS Branch NEEDED TIZANIDINE 2-1 Yes [id number] TAKE 1 [facility] 4 mg tablet 0-24 TABLET BY [facility] of 00:00: MOUTH [place] 00 EVERY 8 Medical HOURS Branch NEEDED TIZANIDINE 2-1 Yes [id number] TAKE 1 [facility] 4 mg tablet 0-24 TABLET BY [facility] of 00:00: MOUTH [place] 00 EVERY 8 Medical HOURS Branch NEEDED TIZANIDINE 2-1 Yes [id number] TAKE 1 [facility] 4 mg tablet 0-24 TABLET BY [facility] of 00:00: MOUTH [place] 00 EVERY 8 Medical HOURS Branch NEEDED TIZANIDINE 2-1 Yes [id number] TAKE 1 [facility] 4 mg tablet 0-24 TABLET BY [facility] of 00:00: MOUTH [place] 00 EVERY 8 Medical HOURS Branch NEEDED TIZANIDINE 2-1 Yes [id number] TAKE 1 [facility] 4 mg tablet 0-24 TABLET BY [facility] of 00:00: MOUTH [place] 00 EVERY 8 Medical HOURS Branch NEEDED TIZANIDINE 2-1 Yes [id number] TAKE 1 [facility] 4 mg tablet 0-24 TABLET BY [facility] of 00:00: MOUTH [place] 00 EVERY 8 Medical HOURS Branch NEEDED TIZANIDINE 2-1 Yes [id number] TAKE 1 [facility] 4 mg tablet 0-24 TABLET BY [facility] of 00:00: MOUTH [place] 00 EVERY 8 Medical HOURS Branch NEEDED TIZANIDINE 2-1 Yes [id number] TAKE 1 [facility] 4 mg tablet 0-24 TABLET BY [facility] of 00:00: MOUTH [place] 00 EVERY 8 Medical HOURS Branch NEEDED TIZANIDINE 2-1 Yes [id number] TAKE 1 [facility] 4 mg tablet 0-24 TABLET BY [facility] of 00:00: MOUTH [place] 00 EVERY 8 Medical HOURS Branch NEEDED TIZANIDINE 2-1 Yes [id number] TAKE 1 [facility] 4 mg tablet 0-24 TABLET BY [facility] of 00:00: MOUTH [place] 00 EVERY 8 Medical HOURS Branch NEEDED TIZANIDINE 2-1 Yes [id number] TAKE 1 [facility] 4 mg tablet 0-24 TABLET BY [facility] of 00:00: MOUTH [place] 00 EVERY 8 Medical HOURS Branch NEEDED TIZANIDINE 2021-08 Yes [id number] TAKE 1 [facility] 4 mg tablet 0-24 TABLET BY [facility] of 00:00: MOUTH [place] 00 EVERY 8 Medical HOURS Branch NEEDED ALBUTEROL 2021-08 Yes [id number] INHALE 2 [facility] 90 0-21 PUFFS BY [facility]y of mcg/actuati 00:00: MOUTH [place] on inhaler 00 EVERY 6 Medica l HOURS Branch NEEDED FOR WHEEZING, SHORTNESS OF BREATH OR BRONCHOSPA SMS ALBUTEROL 2021-08 Yes [id number] INHALE 2 [facility] 90 0-21 PUFFS BY ity of mcg/actuati 00:00: MOUTH [place] on inhaler 00 EVERY 6 Medica l HOURS Branch NEEDED FOR WHEEZING, SHORTNESS OF BREATH OR BRONCHOSPA SMS METFORMIN 2021-08 Yes [id number] TAKE 1 [facility] 850 mg 0-21 TABLET BY [facility] of tablet 00:00: MOUTH [place] 00 THREE Medical TIMES Branch DAILY QUINAPRIL 2021-08 Yes [id number] 40mg TAKE 1 [facility] 40 mg 0-21 TABLET BY [facility] of tablet 00:00: MOUTH [place] 00 EVERY Medical MORNING Branch GLIPIZIDE 2021-08 Yes [id number] 5mg TAKE 1 [facility] XL 5 mg 24 0-21 TABLET BY [facility] of hr tablet 00:00: MOUTH [place] 00 DAILY WITH Medical BREAKFAST Branch amoxicillin 2021-08 Yes [id number] 500mg Take 1 [facility] 500 mg 0-21 tablet by [facility] of tablet 00:00: mouth in [place] 00 the Medical morning Branch and 1 tablet in the evening. empaglifloz 2021-08 Yes [id number] 10mg Take 1 [facility] in 0-21 tablet by [facility] of ([place]) 00:00: mouth in [place] 10 mg 00 the Medical morning. Branch ALBUTEROL 2021-08 Yes [id number] INHALE 2 [facility] 90 0-21 PUFFS BY [facility] of mcg/actuati 00:00: MOUTH [place] on inhaler 00 EVERY 6 Medica l HOURS Branch NEEDED FOR WHEEZING, SHORTNESS OF BREATH OR BRONCHOSPA SMS QUINAPRIL 2021-08 Yes [id number] 40mg TAKE 1 [facility] 40 mg 0-21 TABLET BY [facility] of tablet 00:00: MOUTH [place] 00 EVERY Medical MORNING Branch amoxicillin 2021-08 Yes [id number] 500mg Take 1 [facility] 500 mg 0-21 tablet by [facility] of tablet 00:00: mouth in [place] 00 the Medical morning Branch and 1 tablet in the evening. empaglifloz 2021-08 Yes [id number] 10mg Take 1 [facility] in 0-21 tablet by [facility] of ([place]) 00:00: mouth in [place] 10 mg 00 the Medical morning. Branch ALBUTEROL 2021-08 Yes [id number] INHALE 2 [facility] 90 0-21 PUFFS BY [facility]y of mcg/actuati 00:00: MOUTH [place] on inhaler 00 EVERY 6 Medica l HOURS Branch NEEDED FOR WHEEZING, SHORTNESS OF BREATH OR BRONCHOSPA SMS QUINAPRIL 2021-08 Yes [id number] 40mg TAKE 1 [facility] 40 mg 0-21 TABLET BY [facility] of tablet 00:00: MOUTH [place] 00 EVERY Medical MORNING Branch amoxicillin 2021-08 Yes [id number] 500mg Take 1 [facility] 500 mg 0-21 tablet by [facility] of tablet 00:00: mouth in [place] 00 the Medical morning Branch and 1 tablet in the evening. empaglifloz 2021-08 Yes [id number] 10mg Take 1 [facility] in 0-21 tablet by [facility] of ([place]) 00:00: mouth in [place] 10 mg 00 the Medical morning. Branch QUINAPRIL 2021-08 Yes [id number] 40mg TAKE 1 [facility] 40 mg 0-21 TABLET BY [facility] of tablet 00:00: MOUTH [place] 00 EVERY Medical MORNING Branch ALBUTEROL 2021-08 Yes [id number] INHALE 2 [facility] 90 0-21 PUFFS BY [facility] of mcg/actuati 00:00: MOUTH [place] on inhaler 00 EVERY 6 Medica l HOURS Branch NEEDED FOR WHEEZING, SHORTNESS OF BREATH OR BRONCHOSPA SMS METFORMIN 2021-08 Yes [id number] TAKE 1 [facility] 850 mg 0-21 TABLET BY [facility] of tablet 00:00: MOUTH [place] 00 THREE Medical TIMES Branch DAILY QUINAPRIL 2021-08 Yes [id number] 40mg TAKE 1 [facility] 40 mg 0-21 TABLET BY [facility] of tablet 00:00: MOUTH [place] 00 EVERY Medical MORNING Branch GLIPIZIDE 2021-08 Yes [id number] 5mg TAKE 1 [facility] XL 5 mg 24 0-21 TABLET BY [facility] of hr tablet 00:00: MOUTH [place] 00 DAILY WITH Medical BREAKFAST Branch amoxicillin 2021-08 Yes [id number] 500mg Take 1 [facility] 500 mg 0-21 tablet by [facility] of tablet 00:00: mouth in [place] 00 the Medical morning Branch and 1 tablet in the evening. empaglifloz 2021-08 Yes [id number] 10mg Take 1 [facility] in 0-21 tablet by [facility] of ([place]) 00:00: mouth in [place] 10 mg 00 the Medical morning. Branch ALBUTEROL 2021-08 Yes [id number] INHALE 2 [facility] 90 0-21 PUFFS BY [facility]y of mcg/actuati 00:00: MOUTH [place] on inhaler 00 EVERY 6 Medica l HOURS Branch NEEDED FOR WHEEZING, SHORTNESS OF BREATH OR BRONCHOSPA SMS METFORMIN 2021-08 Yes [id number] TAKE 1 [facility] 850 mg 0-21 TABLET BY [facility] of tablet 00:00: MOUTH [place] THREE Medical TIMES Branch DAILY QUINAPRIL 2021-08 Yes [id number] 40mg TAKE 1 [facility] 40 mg 0-21 TABLET BY [facility] of tablet 00:00: MOUTH [place] 00 EVERY Medical MORNING Branch GLIPIZIDE 2021-08 Yes [id number] 5mg TAKE 1 [facility] XL 5 mg 24 0-21 TABLET BY [facility] of hr tablet 00:00: MOUTH [place] 00 DAILY WITH Medical BREAKFAST Branch amoxicillin 2021-08 Yes [id number] 500mg Take 1 [facility] 500 mg 0-21 tablet by [facility] of tablet 00:00: mouth in [place] 00 the Medical morning Branch and 1 tablet in the evening. empaglifloz 2021-08 Yes [id number] 10mg Take 1 [facility] in 0-21 tablet by [facility] of ([place]) 00:00: mouth in [place] 10 mg 00 the Medical morning. Branch ALBUTEROL 2021-08 Yes [id number] INHALE 2 [facility] 90 0-21 PUFFS BY [facility] of mcg/actuati 00:00: MOUTH [place] on inhaler 00 EVERY 6 Medica l HOURS Branch NEEDED FOR WHEEZING, SHORTNESS OF BREATH OR BRONCHOSPA SMS METFORMIN 2021-08 Yes [id number] TAKE 1 [facility] 850 mg 0-21 TABLET BY [facility] of tablet 00:00: MOUTH [place] 00 THREE Medical TIMES Branch DAILY QUINAPRIL 2021-08 Yes [id number] 40mg TAKE 1 [facility] 40 mg 0-21 TABLET BY [facility] of tablet 00:00: MOUTH [place] 00 EVERY Medical MORNING Branch GLIPIZIDE 2021-08 Yes [id number] 5mg TAKE 1 [facility] XL 5 mg 24 0-21 TABLET BY [facility] of hr tablet 00:00: MOUTH [place] 00 DAILY WITH Medical BREAKFAST Branch amoxicillin 2021-08 Yes [id number] 500mg Take 1 [facility] 500 mg 0-21 tablet by [facility] of tablet 00:00: mouth in [place] 00 the Medical morning Branch and 1 tablet in the evening. empaglifloz 2021-08 Yes [id number] 10mg Take 1 [facility] in 0-21 tablet by [facility] of ([place]) 00:00: mouth in [place] 10 mg 00 the Medical morning. Branch ALBUTEROL 2021-08 Yes [id number] INHALE 2 [facility] 90 0-21 PUFFS BY [facility] of mcg/actuati 00:00: MOUTH [place] on inhaler 00 EVERY 6 Medica l HOURS Branch NEEDED FOR WHEEZING, SHORTNESS OF BREATH OR BRONCHOSPA SMS METFORMIN 2021-08 Yes [id number] TAKE 1 [facility] 850 mg 0-21 TABLET BY [facility] of tablet 00:00: MOUTH [place] 00 THREE Medical TIMES Branch DAILY QUINAPRIL 2021-08 Yes [id number] 40mg TAKE 1 [facility] 40 mg 0-21 TABLET BY [facility] of tablet 00:00: MOUTH [place] 00 EVERY Medical MORNING Branch GLIPIZIDE 2021-08 Yes [id number] 5mg TAKE 1 [facility] XL 5 mg 24 0-21 TABLET BY [facility] of hr tablet 00:00: MOUTH [place] 00 DAILY WITH Medical BREAKFAST Branch amoxicillin 2021-08 Yes [id number] 500mg Take 1 [facility] 500 mg 0-21 tablet by [facility] of tablet 00:00: mouth in [place] 00 the Medical morning Branch and 1 tablet in the evening. empaglifloz 2021-08 Yes [id number] 10mg Take 1 [facility] in 0-21 tablet by [facility] of ([place]) 00:00: mouth in [place] 10 mg 00 the Medical morning. Branch ALBUTEROL 2021-08 Yes [id number] INHALE 2 [facility] 90 0-21 PUFFS BY [facility] of mcg/actuati 00:00: MOUTH [place] on inhaler 00 EVERY 6 Medica l HOURS Branch NEEDED FOR WHEEZING, SHORTNESS OF BREATH OR BRONCHOSPA SMS METFORMIN 2021-08 Yes [id number] TAKE 1 [facility] 850 mg 0-21 TABLET BY [facility] of tablet 00:00: MOUTH [place] 00 THREE Medical TIMES Branch DAILY QUINAPRIL 2021-08 Yes [id number] 40mg TAKE 1 [facility] 40 mg 0-21 TABLET BY [facility] of tablet 00:00: MOUTH [place] 00 EVERY Medical MORNING Branch GLIPIZIDE 2021-08 Yes [id number] 5mg TAKE 1 [facility] XL 5 mg 24 0-21 TABLET BY [facility] of hr tablet 00:00: MOUTH [place] 00 DAILY WITH Medical BREAKFAST Branch amoxicillin 2021-08 Yes [id number] 500mg Take 1 [facility] 500 mg 0-21 tablet by [facility] of tablet 00:00: mouth in [place] 00 the Medical morning Branch and 1 tablet in the evening. empaglifloz 2021-08 Yes [id number] 10mg Take 1 [facility] in 0-21 tablet by [facility] of ([place]) 00:00: mouth in [place] 10 mg 00 the Medical morning. Branch ALBUTEROL 2021-08 Yes [id number] INHALE 2 [facility] 90 0-21 PUFFS BY [facility] of mcg/actuati 00:00: MOUTH [place] on inhaler 00 EVERY 6 Medica l HOURS Branch NEEDED FOR WHEEZING, SHORTNESS OF BREATH OR BRONCHOSPA SMS METFORMIN 2021-08 Yes [id number] TAKE 1 [facility] 850 mg 0-21 TABLET BY [facility] of tablet 00:00: MOUTH [place] 00 THREE Medical TIMES Branch DAILY QUINAPRIL 2021-08 Yes [id number] 40mg TAKE 1 [facility] 40 mg 0-21 TABLET BY [facility] of tablet 00:00: MOUTH [place] 00 EVERY Medical MORNING Branch GLIPIZIDE 2021-08 Yes [id number] 5mg TAKE 1 [facility] XL 5 mg 24 0-21 TABLET BY [facility] of hr tablet 00:00: MOUTH [place] 00 DAILY WITH Medical BREAKFAST Branch amoxicillin 2021-08 Yes [id number] 500mg Take 1 [facility] 500 mg 0-21 tablet by [facility] of tablet 00:00: mouth in [place] 00 the Medical morning Branch and 1 tablet in the evening. empaglifloz 2021-08 Yes [id number] 10mg Take 1 [facility] in 0-21 tablet by [facility] of ([place]) 00:00: mouth in [place] 10 mg 00 the Medical morning. Branch ALBUTEROL 2021-08 Yes [id number] INHALE 2 [facility] 90 0-21 PUFFS BY [facility] of mcg/actuati 00:00: MOUTH [place] on inhaler 00 EVERY 6 Medica l HOURS Branch NEEDED FOR WHEEZING, SHORTNESS OF BREATH OR BRONCHOSPA SMS METFORMIN 2021-08 Yes [id number] TAKE 1 [facility] 850 mg 0-21 TABLET BY [facility] of tablet 00:00: MOUTH [place] 00 THREE Medical TIMES Branch DAILY QUINAPRIL 2021-08 Yes [id number] 40mg TAKE 1 [facility] 40 mg 0-21 TABLET BY [facility] of tablet 00:00: MOUTH [place] 00 EVERY Medical MORNING Branch GLIPIZIDE 2021-08 Yes [id number] 5mg TAKE 1 [facility] XL 5 mg 24 0-21 TABLET BY [facility] of hr tablet 00:00: MOUTH [place] 00 DAILY WITH Medical BREAKFAST Branch amoxicillin 2021-08 Yes [id number] 500mg Take 1 [facility] 500 mg 0-21 tablet by [facility] of tablet 00:00: mouth in [place] 00 the Medical morning Branch and 1 tablet in the evening. empaglifloz 2021-08 Yes [id number] 10mg Take 1 [facility] in 0-21 tablet by [facility] of ([place]) 00:00: mouth in [place] 10 mg 00 the Medical morning. Branch ALBUTEROL 2021-08 Yes [id number] INHALE 2 [facility] 90 0-21 PUFFS BY [facility] of mcg/actuati 00:00: MOUTH [place] on inhaler 00 EVERY 6 Medica l HOURS Branch NEEDED FOR WHEEZING, SHORTNESS OF BREATH OR BRON[facility]OS[facility] METFORMIN 2021-08 Yes [id number] TAKE 1 [facility] 850 mg 0-21 TABLET BY [facility] of tablet 00:00: MOUTH [place] 00 THREE Medical TIMES Branch DAILY QUINAPRIL 2021-08 Yes [id number] 40mg TAKE 1 [facility] 40 mg 0-21 TABLET BY [facility] of tablet 00:00: MOUTH [place] 00 EVERY Medical MORNING Branch GLIPIZIDE 2021-08 Yes [id number] 5mg TAKE 1 [facility] XL 5 mg 24 0-21 TABLET BY [facility] of hr tablet 00:00: MOUTH [place] 00 DAILY WITH Medical BREAKFAST Branch amoxicillin 2021-08 Yes [id number] 500mg Take 1 [facility] 500 mg 0-21 tablet by [facility] of tablet 00:00: mouth in [place] 00 the Medical morning Branch and 1 tablet in the evening. empaglifloz 2021-08 Yes [id number] 10mg Take 1 [facility] in 0-21 tablet by [facility] of ([place]) 00:00: mouth in [place] 10 mg 00 the Medical morning. Branch ALBUTEROL 2021-08 Yes [id number] INHALE 2 [facility] 90 0-21 PUFFS BY [facility] of mcg/actuati 00:00: MOUTH [place] on inhaler 00 EVERY 6 Medica l HOURS Branch NEEDED FOR WHEEZING, SHORTNESS OF BREATH OR BRONCHOSPA SMS METFORMIN 2021-08 Yes [id number] TAKE 1 [facility] 850 mg 0-21 TABLET BY [facility] of tablet 00:00: MOUTH [place] 00 THREE Medical TIMES Branch DAILY QUINAPRIL 2021-08 Yes [id number] 40mg TAKE 1 [facility] 40 mg 0-21 TABLET BY [facility] of tablet 00:00: MOUTH [place] 00 EVERY Medical MORNING Branch GLIPIZIDE 2021-08 Yes [id number] 5mg TAKE 1 [facility] XL 5 mg 24 0-21 TABLET BY [facility] of hr tablet 00:00: MOUTH [place] 00 DAILY WITH Medical BREAKFAST Branch amoxicillin 2021-08 Yes [id number] 500mg Take 1 [facility] 500 mg 0-21 tablet by [facility] of tablet 00:00: mouth in [place] 00 the Medical morning Branch and 1 tablet in the evening. empaglifloz 2021-08 Yes [id number] 10mg Take 1 [facility] in 0-21 tablet by [facility] of ([place]) 00:00: mouth in [place] 10 mg 00 the Medical morning. Branch ALBUTEROL 2021-08 Yes [id number] INHALE 2 [facility] 90 0-21 PUFFS BY [facility] of mcg/actuati 00:00: MOUTH [place] on inhaler 00 EVERY 6 Medica l HOURS Branch NEEDED FOR WHEEZING, SHORTNESS OF BREATH OR BRONCHOSPA SMS METFORMIN 2021-08 Yes [id number] TAKE 1 [facility] 850 mg 0-21 TABLET BY [facility] of tablet 00:00: MOUTH [place] 00 THREE Medical TIMES Branch DAILY QUINAPRIL 2021-08 Yes [id number] 40mg TAKE 1 [facility] 40 mg 0-21 TABLET BY [facility] of tablet 00:00: MOUTH [place] 00 EVERY Medical MORNING Branch GLIPIZIDE 2021-08 Yes [id number] 5mg TAKE 1 [facility] XL 5 mg 24 0-21 TABLET BY [facility] of hr tablet 00:00: MOUTH [place] 00 DAILY WITH Medical BREAKFAST Branch amoxicillin 2021-08 Yes [id number] 500mg Take 1 [facility] 500 mg 0-21 tablet by [facility] of tablet 00:00: mouth in [place] 00 the Medical morning Branch and 1 tablet in the evening. empaglifloz 2021-08 Yes [id number] 10mg Take 1 [facility] in 0-21 tablet by [facility] of ([place]) 00:00: mouth in [place] 10 mg 00 the Medical morning. Branch ALBUTEROL 2021-08 Yes [id number] INHALE 2 [facility] 90 0-21 PUFFS BY [facility] of mcg/actuati 00:00: MOUTH [place] on inhaler 00 EVERY 6 Medica l HOURS Branch NEEDED FOR WHEEZING, SHORTNESS OF BREATH OR BRONCHOSPA SMS METFORMIN 2021-08 Yes [id number] TAKE 1 [facility] 850 mg 0-21 TABLET BY [facility] of tablet 00:00: MOUTH [place] THREE Medical TIMES Branch DAILY QUINAPRIL 2021-08 Yes [id number] 40mg TAKE 1 [facility] 40 mg 0-21 TABLET BY [facility] of tablet 00:00: MOUTH [place] EVERY Medical MORNING Branch GLIPIZIDE 2021-08 Yes [id number] 5mg TAKE 1 [facility] XL 5 mg 24 0-21 TABLET BY [facility] of hr tablet 00:00: MOUTH [place] 00 DAILY WITH Medical BREAKFAST Branch amoxicillin 2021-08 Yes [id number] 500mg Take 1 [facility] 500 mg 0-21 tablet by [facility] of tablet 00:00: mouth in [place] 00 the Medical morning Branch and 1 tablet in the evening. empaglifloz 2021-08 Yes [id number] 10mg Take 1 [facility]21 tablet by [facility] ([place]) 00:00: mouth in [place] 10 mg 00 the Medical morning. Branch ALBUTEROL 2021-08 Yes [id number] INHALE 2 [facility] 90 0-21 PUFFS BY [facility] mcg/actuati 00:00: MOUTH [place] on inhaler 00 EVERY 6 Medica l HOURS Branch NEEDED FOR WHEEZING, SHORTNESS OF BREATH OR BRONCHOSPA SMS METFORMIN 2021-08 Yes [id number] TAKE 1 [facility] 850 mg 0-21 TABLET BY [facility] tablet 00:00: MOUTH [place] 00 THREE Medical TIMES Branch DAILY QUINAPRIL 2021-08 Yes [id number] 40mg TAKE 1 [facility] 40 mg 0-21 TABLET BY [facility] tablet 00:00: MOUTH [place] 00 EVERY Medical MORNING Branch GLIPIZIDE 2021-08 Yes [id number] 5mg TAKE 1 [facility] XL 5 mg 24 0-21 TABLET BY [facility] hr tablet 00:00: MOUTH [place] 00 DAILY WITH Medical BREAKFAST Branch amoxicillin 2021-08 Yes [id number] 500mg Take 1 [facility] 500 mg 0-21 tablet by [facility] tablet 00:00: mouth in [place] 00 the Medical morning Branch and 1 tablet in the evening. empaglifloz 2021-08 Yes [id number] 10mg Take 1 [facility] 0-21 tablet by [facility] ([place]) 00:00: mouth in [place] 10 mg 00 the Medical morning. Branch ALBUTEROL 2021-08 Yes [id number] INHALE 2 [facility] 90 0-21 PUFFS BY [facility] mcg/actuati 00:00: MOUTH [place] on inhaler 00 EVERY 6 Medica l HOURS Branch NEEDED FOR WHEEZING, SHORTNESS OF BREATH OR BRONCHOSPA SMS METFORMIN 2021-08 Yes [id number] TAKE 1 [facility] 850 mg 0-21 TABLET BY [facility] tablet 00:00: MOUTH [place] 00 THREE Medical TIMES Branch DAILY QUINAPRIL 2021-08 Yes [id number] 40mg TAKE 1 [facility] 40 mg 0-21 TABLET BY [facility] tablet 00:00: MOUTH [place] 00 EVERY Medical MORNING Branch GLIPIZIDE 2021-08 Yes [id number] 5mg TAKE 1 [facility] XL 5 mg 24 0-21 TABLET BY [facility] hr tablet 00:00: MOUTH [place] 00 DAILY WITH Medical BREAKFAST Branch amoxicillin 2021-08 Yes [id number] 500mg Take 1 [facility] 500 mg 0-21 tablet by [facility] tablet 00:00: mouth in [place] 00 the Medical morning Branch and 1 tablet in the evening. empaglifloz 2021-08 Yes [id number] 10mg Take 1 [facility] 0-21 tablet by [facility] ([place]) 00:00: mouth in [place] 10 mg 00 the Medical morning. Branch ALBUTEROL 2021-08 Yes [id number] INHALE 2 [facility] 90 0-21 PUFFS BY [facility] mcg/actuati 00:00: MOUTH [place] on inhaler 00 EVERY 6 Medica l HOURS Branch NEEDED FOR WHEEZING, SHORTNESS OF BREATH OR BRONCHOSPA SMS METFORMIN 2021-08 Yes [id number] TAKE 1 [facility] 850 mg 0-21 TABLET BY [facility] tablet 00:00: MOUTH [place] 00 THREE Medical TIMES Branch DAILY QUINAPRIL 2021-08 Yes [id number] 40mg TAKE 1 [facility] 40 mg 0-21 TABLET BY [facility] tablet 00:00: MOUTH [place] 00 EVERY Medical MORNING Branch GLIPIZIDE 2021-08 Yes [id number] 5mg TAKE 1 [facility] 5 mg 24 0-21 TABLET BY [facility] hr tablet 00:00: MOUTH [place] 00 DAILY WITH Medical BREAKFAST Branch amoxicillin 2021-08 Yes [id number] 500mg Take 1 [facility] 500 mg 0-21 tablet by [facility] tablet 00:00: mouth in [place] 00 the Medical morning Branch and 1 tablet in the evening. empaglifloz 2021-08 Yes [id number] 10mg Take 1 [facility] in 0-21 tablet by [facility] ([place]) 00:00: mouth in [place] 10 mg 00 the Medical morning. Branch ALBUTEROL 2021-08 Yes [id number] INHALE 2 [facility] 90 0-21 PUFFS BY [facility] of mcg/actuati 00:00: MOUTH [place] on inhaler 00 EVERY 6 Medica l HOURS Branch NEEDED FOR WHEEZING, SHORTNESS OF BREATH OR BRONCHOSPA SMS METFORMIN 2021-08 Yes [id number] TAKE 1 [facility] 850 mg 0-21 TABLET BY [facility] tablet 00:00: MOUTH [place] 00 THREE Medical TIMES Branch DAILY QUINAPRIL 2021-08 Yes [id number] 40mg TAKE 1 [facility] 40 mg 0-21 TABLET BY [facility] tablet 00:00: MOUTH [place] 00 EVERY Medical MORNING Branch GLIPIZIDE 2021-08 Yes [id number] 5mg TAKE 1 [facility] 5 mg 24 0-21 TABLET BY [facility] hr tablet 00:00: MOUTH [place] 00 DAILY WITH Medical BREAKFAST Branch amoxicillin 2021-08 Yes [id number] 500mg Take 1 [facility] 500 mg 0-21 tablet by [facility] tablet 00:00: mouth in [place] 00 the Medical morning Branch and 1 tablet in the evening. empaglifloz 2021-08 Yes [id number] 10mg Take 1 [facility] in 0-21 tablet by [facility] ([place]) 00:00: mouth in [place] 10 mg 00 the Medical morning. Branch ALBUTEROL 2021-08 Yes [id number] INHALE 2 [facility] 90 0-21 PUFFS BY [facility] of mcg/actuati 00:00: MOUTH [place] on inhaler 00 EVERY 6 Medica l HOURS Branch NEEDED FOR WHEEZING, SHORTNESS OF BREATH OR BRONCHOSPA SMS METFORMIN 2021-08 Yes [id number] TAKE 1 [facility] 850 mg 0-21 TABLET BY [facility] tablet 00:00: MOUTH [place] 00 THREE Medical TIMES Branch DAILY QUINAPRIL 2021-08 Yes [id number] 40mg TAKE 1 [facility] 40 mg 0-21 TABLET BY [facility] tablet 00:00: MOUTH [place] 00 EVERY Medical MORNING Branch GLIPIZIDE 2021-08 Yes [id number] 5mg TAKE 1 [facility] XL 5 mg 24 0-21 TABLET BY [facility] hr tablet 00:00: MOUTH [place] 00 DAILY WITH Medical BREAKFAST Branch amoxicillin 2021-08 Yes [id number] 500mg Take 1 [facility] 500 mg 0-21 tablet by [facility] tablet 00:00: mouth in [place] 00 the Medical morning Branch and 1 tablet in the evening. empaglifloz 2021-08 Yes [id number] 10mg Take 1 [facility] in 0-21 tablet by [facility] ([place]) 00:00: mouth in [place] 10 mg 00 the Medical morning. Branch ALBUTEROL 2021-08 Yes [id number] INHALE 2 [facility] 90 0-21 PUFFS BY [facility] of mcg/actuati 00:00: MOUTH [place] on inhaler 00 EVERY 6 Medica l HOURS Branch NEEDED FOR WHEEZING, SHORTNESS OF BREATH OR [facility] [facility] METFORMIN 2021-08 Yes [id number] TAKE 1 [facility] 850 mg 0-21 TABLET BY [facility] tablet 00:00: MOUTH [place] 00 THREE Medical TIMES Branch DAILY QUINAPRIL 2021-08 Yes [id number] 40mg TAKE 1 [facility] 40 mg 0-21 TABLET BY [facility] tablet 00:00: MOUTH [place] 00 EVERY Medical MORNING Branch GLIPIZIDE 2021-08 Yes [id number] 5mg TAKE 1 [facility] 5 mg 24 0-21 TABLET BY [facility] hr tablet 00:00: MOUTH [place] 00 DAILY WITH Medical BREAKFAST Branch amoxicillin 2021-08 Yes [id number] 500mg Take 1 [facility] 500 mg 0-21 tablet by [facility] tablet 00:00: mouth in [place] 00 the Medical morning Branch and 1 tablet in the evening. empaglifloz 2021-08 Yes [id number] 10mg Take 1 [facility] in 0-21 tablet by [facility] ([place]) 00:00: mouth in [place] 10 mg 00 the Medical morning. Branch ALBUTEROL 2021-08 Yes [id number] INHALE 2 [facility] 90 0-21 PUFFS BY [facility] of mcg/actuati 00:00: MOUTH [place] on inhaler 00 EVERY 6 Medica l HOURS Branch NEEDED FOR WHEEZING, SHORTNESS OF BREATH OR BRONCHOSPA SMS METFORMIN 2021-08 Yes [id number] TAKE 1 [facility] 850 mg 0-21 TABLET BY [facility] tablet 00:00: MOUTH [place] 00 THREE Medical TIMES Branch DAILY QUINAPRIL 2021-08 Yes [id number] 40mg TAKE 1 [facility] 40 mg 0-21 TABLET BY [facility] tablet 00:00: MOUTH [place] 00 EVERY Medical MORNING Branch GLIPIZIDE 2021-08 Yes [id number] 5mg TAKE 1 [facility] XL 5 mg 24 0-21 TABLET BY [facility] hr tablet 00:00: MOUTH [place] 00 DAILY WITH Medical BREAKFAST Branch amoxicillin 2021-08 Yes [id number] 500mg Take 1 [facility] 500 mg 0-21 tablet by [facility] tablet 00:00: mouth in [place] 00 the Medical morning Branch and 1 tablet in the evening. empaglifloz 2021-08 Yes [id number] 10mg Take 1 [facility] in 0-21 tablet by [facility] ([place]) 00:00: mouth in [place] 10 mg 00 the Medical morning. Branch ALBUTEROL 2021-08 Yes [id number] INHALE 2 [facility] 90 0-21 PUFFS BY [facility] of mcg/actuati 00:00: MOUTH [place] on inhaler 00 EVERY 6 Medica l HOURS Branch NEEDED FOR WHEEZING, SHORTNESS OF BREATH OR BRONCHOSPA SMS METFORMIN 2021-08 Yes [id number] TAKE 1 [facility] 850 mg 0-21 TABLET BY [facility] tablet 00:00: MOUTH [place] 00 THREE Medical TIMES Branch DAILY QUINAPRIL 2021-08 Yes [id number] 40mg TAKE 1 [facility] 40 mg 0-21 TABLET BY [facility] tablet 00:00: MOUTH [place] 00 EVERY Medical MORNING Branch GLIPIZIDE 2021-08 Yes [id number] 5mg TAKE 1 [facility] XL 5 mg 24 0-21 TABLET BY [facility] hr tablet 00:00: MOUTH [place] 00 DAILY WITH Medical BREAKFAST Branch amoxicillin 2021-08 Yes [id number] 500mg Take 1 [facility] 500 mg 0-21 tablet by [facility] tablet 00:00: mouth in [place] 00 the Medical morning Branch and 1 tablet in the evening. empaglifloz 2021-08 Yes [id number] 10mg Take 1 [facility] in 0-21 tablet by [facility] ([place]) 00:00: mouth in [place] 10 mg 00 the Medical morning. Branch ALBUTEROL 2021-08 Yes [id number] INHALE 2 [facility] 90 0-21 PUFFS BY [facility] of mcg/actuati 00:00: MOUTH [place] on inhaler 00 EVERY 6 Medica l HOURS Branch NEEDED FOR WHEEZING, SHORTNESS OF BREATH OR BRONCHOSPA SMS METFORMIN 2021-08 Yes [id number] TAKE 1 [facility] 850 mg 0-21 TABLET BY [facility] tablet 00:00: MOUTH [place] THREE Medical TIMES Branch DAILY QUINAPRIL 2021-08 Yes [id number] 40mg TAKE 1 [facility] 40 mg 0-21 TABLET BY [facility] tablet 00:00: MOUTH [place] 00 EVERY Medical MORNING Branch GLIPIZIDE 2021-08 Yes [id number] 5mg TAKE 1 [facility] XL 5 mg 24 0-21 TABLET BY [facility] hr tablet 00:00: MOUTH [place] 00 DAILY WITH Medical BREAKFAST Branch amoxicillin 2021-08 Yes [id number] 500mg Take 1 [facility] 500 mg 0-21 tablet by [facility] of tablet 00:00: mouth in [place] 00 the Medical morning Branch and 1 tablet in the evening. empaglifloz 2021-08 Yes [id number] 10mg Take 1 [facility] in 0-21 tablet by [facility] ([place]) 00:00: mouth in [place] 10 mg 00 the Medical morning. Branch ALBUTEROL 2021-08 Yes [id number] INHALE 2 [facility] 90 0-21 PUFFS BY [facility] of mcg/actuati 00:00: MOUTH [place] on inhaler 00 EVERY 6 Medica l HOURS Branch NEEDED FOR WHEEZING, SHORTNESS OF BREATH OR BRONCHOSPA SMS METFORMIN 2021-08 Yes [id number] TAKE 1 [facility] 850 mg 0-21 TABLET BY [facility] of tablet 00:00: MOUTH [place] 00 THREE Medical TIMES Branch DAILY QUINAPRIL 2021-08 Yes [id number] 40mg TAKE 1 [facility] 40 mg 0-21 TABLET BY [facility] tablet 00:00: MOUTH [place] 00 EVERY Medical MORNING Branch GLIPIZIDE 2021-08 Yes [id number] 5mg TAKE 1 [facility] XL 5 mg 24 0-21 TABLET BY [facility] hr tablet 00:00: MOUTH [place] 00 DAILY WITH Medical BREAKFAST Branch amoxicillin 2021-08 Yes [id number] 500mg Take 1 [facility] 500 mg 0-21 tablet by [facility] tablet 00:00: mouth in [place] 00 the Medical morning Branch and 1 tablet in the evening. empaglifloz 2021-08 Yes [id number] 10mg Take 1 [facility] in 0-21 tablet by [facility] ([place]) 00:00: mouth in [place] 10 mg 00 the Medical morning. Branch ALBUTEROL 2021-08 Yes [id number] INHALE 2 [facility] 90 0-21 PUFFS BY [facility] of mcg/actuati 00:00: MOUTH [place] on inhaler 00 EVERY 6 Medica l HOURS Branch NEEDED FOR WHEEZING, SHORTNESS OF BREATH OR BRONCHOSPA SMS METFORMIN 2021-08 Yes [id number] TAKE 1 [facility] 850 mg 0-21 TABLET BY [facility] of tablet 00:00: MOUTH [place] 00 THREE Medical TIMES Branch DAILY QUINAPRIL 2021-08 Yes [id number] 40mg TAKE 1 [facility] 40 mg 0-21 TABLET BY [facility] tablet 00:00: MOUTH [place] 00 EVERY Medical MORNING Branch GLIPIZIDE 2021-08 Yes [id number] 5mg TAKE 1 [facility] XL 5 mg 24 0-21 TABLET BY [facility] hr tablet 00:00: MOUTH [place] 00 DAILY WITH Medical BREAKFAST Branch amoxicillin 2021-08 Yes [id number] 500mg Take 1 [facility] 500 mg 0-21 tablet by [facility] tablet 00:00: mouth in [place] 00 the Medical morning Branch and 1 tablet in the evening. empaglifloz 2021-08 Yes [id number] 10mg Take 1 [facility] in 0-21 tablet by [facility] ([place]) 00:00: mouth in [place] 10 mg 00 the Medical morning. Branch ALBUTEROL 2021-08 Yes [id number] INHALE 2 [facility] 90 0-21 PUFFS BY [facility] of mcg/actuati 00:00: MOUTH [place] on inhaler 00 EVERY 6 Medica l HOURS Branch NEEDED FOR WHEEZING, SHORTNESS OF BREATH OR BRONCHOSPA SMS METFORMIN 2021-08 Yes [id number] TAKE 1 [facility] 850 mg 0-21 TABLET BY [facility] tablet 00:00: MOUTH [place] 00 THREE Medical TIMES Branch DAILY QUINAPRIL 2021-08 Yes [id number] 40mg TAKE 1 [facility] 40 mg 0-21 TABLET BY [facility] tablet 00:00: MOUTH [place] 00 EVERY Medical MORNING Branch GLIPIZIDE 2021-08 Yes [id number] 5mg TAKE 1 [facility] XL 5 mg 24 0-21 TABLET BY [facility] hr tablet 00:00: MOUTH [place] 00 DAILY WITH Medical BREAKFAST Branch amoxicillin 2021-08 Yes [id number] 500mg Take 1 [facility] 500 mg 0-21 tablet by [facility] tablet 00:00: mouth in [place] 00 the Medical morning Branch and 1 tablet in the evening. empaglifloz 2021-08 Yes [id number] 10mg Take 1 [facility] in 0-21 tablet by [facility] ([place]) 00:00: mouth in [place] 10 mg 00 the Medical morning. Branch ALBUTEROL 2021-08 Yes [id number] INHALE 2 [facility] 90 0-21 PUFFS BY [facility] of mcg/actuati 00:00: MOUTH [place] on inhaler 00 EVERY 6 Medica l HOURS Branch NEEDED FOR WHEEZING, SHORTNESS OF BREATH OR BR[facility]OS[place] [facility] METFORMIN 2021-08 Yes [id number] TAKE 1 [facility] 850 mg 0-21 TABLET BY [facility] of tablet 00:00: MOUTH [place] 00 THREE Medical TIMES Branch DAILY QUINAPRIL 2021-08 Yes [id number] 40mg TAKE 1 [facility] 40 mg 0-21 TABLET BY [facility] of tablet 00:00: MOUTH [place] 00 EVERY Medical MORNING Branch GLIPIZIDE 2021-08 Yes [id number] 5mg TAKE 1 [facility] XL 5 mg 24 0-21 TABLET BY [facility] of hr tablet 00:00: MOUTH [place] 00 DAILY WITH Medical BREAKFAST Branch amoxicillin 2021-08 Yes [id number] 500mg Take 1 [facility] 500 mg 0-21 tablet by [facility] of tablet 00:00: mouth in [place] 00 the Medical morning Branch and 1 tablet in the evening. empaglifloz 2021-08 Yes [id number] 10mg Take 1 [facility] in 0-21 tablet by [facility] ([place]) 00:00: mouth in [place] 10 mg 00 the Medical morning. Branch ALBUTEROL 2021-08 Yes [id number] INHALE 2 [facility] 90 0-21 PUFFS BY [facility] of mcg/actuati 00:00: MOUTH [place] on inhaler 00 EVERY 6 Medica l HOURS Branch NEEDED FOR WHEEZING, SHORTNESS OF BREATH OR BRONCHOSPA SMS METFORMIN 2021-08 Yes [id number] TAKE 1 [facility] 850 mg 0-21 TABLET BY [facility] of tablet 00:00: MOUTH [place] 00 THREE Medical TIMES Branch DAILY QUINAPRIL 2021-08 Yes [id number] 40mg TAKE 1 [facility] 40 mg 0-21 TABLET BY [facility] of tablet 00:00: MOUTH [place] 00 EVERY Medical MORNING Branch GLIPIZIDE 2021-08 Yes [id number] 5mg TAKE 1 [facility] XL 5 mg 24 0-21 TABLET BY [facility] of hr tablet 00:00: MOUTH [place] 00 DAILY WITH Medical BREAKFAST Branch amoxicillin 2021-08 Yes [id number] 500mg Take 1 [facility] 500 mg 0-21 tablet by [facility] of tablet 00:00: mouth in [place] 00 the Medical morning Branch and 1 tablet in the evening. empaglifloz 2021-08 Yes [id number] 10mg Take 1 [facility] in 0-21 tablet by [facility] ([place]) 00:00: mouth in [place] 10 mg 00 the Medical morning. Branch ALBUTEROL 2021-08 Yes [id number] INHALE 2 [facility] 90 0-21 PUFFS BY [facility] of mcg/actuati 00:00: MOUTH [place] on inhaler 00 EVERY 6 Medica l HOURS Branch NEEDED FOR WHEEZING, SHORTNESS OF BREATH OR BRONCHOSPA SMS METFORMIN 2021-08 Yes [id number] TAKE 1 [facility] 850 mg 0-21 TABLET BY [facility] of tablet 00:00: MOUTH [place] 00 THREE Medical TIMES Branch DAILY QUINAPRIL 2021-08 Yes [id number] 40mg TAKE 1 [facility] 40 mg 0-21 TABLET BY [facility] of tablet 00:00: MOUTH [place] 00 EVERY Medical MORNING Branch GLIPIZIDE 2021-08 Yes [id number] 5mg TAKE 1 [facility] XL 5 mg 24 0-21 TABLET BY [facility] of hr tablet 00:00: MOUTH [place] 00 DAILY WITH Medical BREAKFAST Branch amoxicillin 2021-08 Yes [id number] 500mg Take 1 [facility] 500 mg 0-21 tablet by [facility] of tablet 00:00: mouth in [place] 00 the Medical morning Branch and 1 tablet in the evening. empaglifloz 2021-08 Yes [id number] 10mg Take 1 [facility] in 0-21 tablet by [facility] ([place]) 00:00: mouth in [place] 10 mg 00 the Medical morning. Branch ALBUTEROL 2021-08 Yes [id number] INHALE 2 [facility] 90 0-21 PUFFS BY [facility] of mcg/actuati 00:00: MOUTH [place] on inhaler 00 EVERY 6 Medica l HOURS Branch NEEDED FOR WHEEZING, SHORTNESS OF BREATH OR BRONCHOSPA SMS METFORMIN 2021-08 Yes [id number] TAKE 1 [facility] 850 mg 0-21 TABLET BY [facility] of tablet 00:00: MOUTH [place] 00 THREE Medical TIMES Branch DAILY QUINAPRIL 2021-08 Yes [id number] 40mg TAKE 1 [facility] 40 mg 0-21 TABLET BY [facility] of tablet 00:00: MOUTH [place] 00 EVERY Medical MORNING Branch GLIPIZIDE 2021-08 Yes [id number] 5mg TAKE 1 [facility] XL 5 mg 24 0-21 TABLET BY [facility] of hr tablet 00:00: MOUTH [place] 00 DAILY WITH Medical BREAKFAST Branch amoxicillin 2021-08 Yes [id number] 500mg Take 1 [facility] 500 mg 0-21 tablet by [facility] of tablet 00:00: mouth in [place] 00 the Medical morning Branch and 1 tablet in the evening. empaglifloz 2021-08 Yes [id number] 10mg Take 1 [facility] in 0-21 tablet by [facility] ([place]) 00:00: mouth in [place] 10 mg 00 the Medical morning. Branch ALBUTEROL 2021-08 Yes [id number] INHALE 2 [facility] 90 0-21 PUFFS BY [facility] of mcg/actuati 00:00: MOUTH [place] on inhaler 00 EVERY 6 Medica l HOURS Branch NEEDED FOR WHEEZING, SHORTNESS OF BREATH OR BRONCHOSPA SMS METFORMIN 2021-08 Yes [id number] TAKE 1 [facility] 850 mg 0-21 TABLET BY [facility] of tablet 00:00: MOUTH [place] 00 THREE Medical TIMES Branch DAILY QUINAPRIL 2021-08 Yes [id number] 40mg TAKE 1 [facility] 40 mg 0-21 TABLET BY [facility] of tablet 00:00: MOUTH [place] 00 EVERY Medical MORNING Branch GLIPIZIDE 2021-08 Yes [id number] 5mg TAKE 1 [facility] XL 5 mg 24 0-21 TABLET BY [facility] of hr tablet 00:00: MOUTH [place] 00 DAILY WITH Medical BREAKFAST Branch amoxicillin 2021-08 Yes [id number] 500mg Take 1 [facility] 500 mg 0-21 tablet by [facility] of tablet 00:00: mouth in [place] 00 the Medical morning Branch and 1 tablet in the evening. empaglifloz 2021-08 Yes [id number] 10mg Take 1 [facility] in 0-21 tablet by [facility] ([place]) 00:00: mouth in [place] 10 mg 00 the Medical morning. Branch ALBUTEROL 2021-08 Yes [id number] INHALE 2 [facility] 90 0-21 PUFFS BY [facility] of mcg/actuati 00:00: MOUTH [place] on inhaler 00 EVERY 6 Medica l HOURS Branch NEEDED FOR WHEEZING, SHORTNESS OF BREATH OR BRONCHOSPA SMS METFORMIN 2021-08 Yes [id number] TAKE 1 [facility] 850 mg 0-21 TABLET BY [facility] of tablet 00:00: MOUTH [place] 00 THREE Medical TIMES Branch DAILY GLIPIZIDE 2021-08 Yes [id number] 5mg TAKE 1 [facility] XL 5 mg 24 0-21 TABLET BY [facility] of hr tablet 00:00: MOUTH [place] 00 DAILY WITH Medical BREAKFAST Branch amoxicillin 2021-08 Yes [id number] 500mg Take 1 [facility] 500 mg 0-21 tablet by [facility] tablet 00:00: mouth in [place] 00 the Medical morning Branch and 1 tablet in the evening. empaglifloz 2021-08 Yes [id number] 10mg Take 1 [facility] in 0-21 tablet by [facility] ([place]) 00:00: mouth in [place] 10 mg 00 the Medical morning. Branch ALBUTEROL 2021-08 Yes [id number] INHALE 2 [facility] 90 0-21 PUFFS BY [facility] of mcg/actuati 00:00: MOUTH [place] on inhaler 00 EVERY 6 Medica l HOURS Branch NEEDED FOR WHEEZING, SHORTNESS OF BREATH OR BRONCHOSPA SMS METFORMIN 2021-08 Yes [id number] TAKE 1 [facility] 850 mg 0-21 TABLET BY [facility] of tablet 00:00: MOUTH [place] 00 THREE Medical TIMES Branch DAILY GLIPIZIDE 2021-08 Yes [id number] 5mg TAKE 1 [facility] XL 5 mg 24 0-21 TABLET BY [facility] of hr tablet 00:00: MOUTH [place] 00 DAILY WITH Medical BREAKFAST Branch amoxicillin 2021-08 Yes [id number] 500mg Take 1 [facility] 500 mg 0-21 tablet by [facility] of tablet 00:00: mouth in [place] 00 the Medical morning Branch and 1 tablet in the evening. empaglifloz 2021-08 Yes [id number] 10mg Take 1 [facility] in 0-21 tablet by [facility] of ([place]) 00:00: mouth in [place] 10 mg 00 the Medical morning. Branch ALBUTEROL 2021-08 Yes [id number] INHALE 2 [facility] 90 0-21 PUFFS BY ity of mcg/actuati 00:00: MOUTH [place] on inhaler 00 EVERY 6 Medica l HOURS Branch NEEDED FOR WHEEZING, SHORTNESS OF BREATH OR BRONCHOSPA SMS METFORMIN 2021-08 Yes [id number] TAKE 1 [facility] 850 mg 0-21 TABLET BY [facility] of tablet 00:00: MOUTH [place] 00 THREE Medical TIMES Branch DAILY GLIPIZIDE 2021-08 Yes [id number] 5mg TAKE 1 [facility] XL 5 mg 24 0-21 TABLET BY [facility] of hr tablet 00:00: MOUTH [place] 00 DAILY WITH Medical BREAKFAST Branch amoxicillin 2021-08 Yes [id number] 500mg Take 1 [facility] 500 mg 0-21 tablet by [facility] of tablet 00:00: mouth in [place] 00 the Medical morning Branch and 1 tablet in the evening. empaglifloz 2021-08 Yes [id number] 10mg Take 1 [facility] in 0-21 tablet by [facility] ([place]) 00:00: mouth in [place] 10 mg 00 the Medical morning. Branch ALBUTEROL 2021-08 Yes [id number] INHALE 2 [facility] 90 0-21 PUFFS BY [facility] of mcg/actuati 00:00: MOUTH [place] on inhaler 00 EVERY 6 Medica l HOURS Branch NEEDED FOR WHEEZING, SHORTNESS OF BREATH OR BRONCHOSPA SMS METFORMIN 2021-08 Yes [id number] TAKE 1 [facility] 850 mg 0-21 TABLET BY [facility] of tablet 00:00: MOUTH [place] 00 THREE Medical TIMES Branch DAILY GLIPIZIDE 2021-08 Yes [id number] 5mg TAKE 1 [facility] XL 5 mg 24 0-21 TABLET BY [facility] of hr tablet 00:00: MOUTH [place] 00 DAILY WITH Medical BREAKFAST Branch amoxicillin 2021-08 Yes [id number] 500mg Take 1 [facility] 500 mg 0-21 tablet by [facility] of tablet 00:00: mouth in [place] 00 the Medical morning Branch and 1 tablet in the evening. empaglifloz 2021-08 Yes [id number] 10mg Take 1 [facility] in 0-21 tablet by [facility] of ([place]) 00:00: mouth in [place] 10 mg 00 the Medical morning. Branch ALBUTEROL 2021-08 Yes [id number] INHALE 2 [facility] 90 0-21 PUFFS BY ity of mcg/actuati 00:00: MOUTH [place] on inhaler 00 EVERY 6 Medica l HOURS Branch NEEDED FOR WHEEZING, SHORTNESS OF BREATH OR BRONCHOSPA SMS METFORMIN 2021-08 Yes [id number] TAKE 1 [facility] 850 mg 0-21 TABLET BY [facility] of tablet 00:00: MOUTH [place] 00 THREE Medical TIMES Branch DAILY GLIPIZIDE 2021-08 Yes [id number] 5mg TAKE 1 [facility] XL 5 mg 24 0-21 TABLET BY [facility] of hr tablet 00:00: MOUTH [place] 00 DAILY WITH Medical BREAKFAST Branch amoxicillin 2021-08 Yes [id number] 500mg Take 1 [facility] 500 mg 0-21 tablet by [facility] of tablet 00:00: mouth in [place] 00 the Medical morning Branch and 1 tablet in the evening. empaglifloz 2021-08 Yes [id number] 10mg Take 1 [facility] in 0-21 tablet by [facility] ([place]) 00:00: mouth in [place] 10 mg 00 the Medical morning. Branch ALBUTEROL 2021-08 Yes [id number] INHALE 2 [facility] 90 0-21 PUFFS BY [facility] of mcg/actuati 00:00: MOUTH [place] on inhaler 00 EVERY 6 Medica l HOURS Branch NEEDED FOR WHEEZING, SHORTNESS OF BREATH OR BRONCHOSPA SMS METFORMIN 2021-08 Yes [id number] TAKE 1 [facility] 850 mg 0-21 TABLET BY [facility] of tablet 00:00: MOUTH [place] 00 THREE Medical TIMES Branch DAILY GLIPIZIDE 2021-08 Yes [id number] 5mg TAKE 1 [facility] XL 5 mg 24 0-21 TABLET BY [facility] of hr tablet 00:00: MOUTH [place] 00 DAILY WITH Medical BREAKFAST Branch amoxicillin 2021-08 Yes [id number] 500mg Take 1 [facility] 500 mg 0-21 tablet by [facility] of tablet 00:00: mouth in [place] 00 the Medical morning Branch and 1 tablet in the evening. empaglifloz 2021-08 Yes [id number] 10mg Take 1 [facility] in 0-21 tablet by [facility] ([place]) 00:00: mouth in [place] 10 mg 00 the Medical morning. Branch ALBUTEROL 2021-08 Yes [id number] INHALE 2 [facility] 90 0-21 PUFFS BY ity of mcg/actuati 00:00: MOUTH [place] on inhaler 00 EVERY 6 Medica l HOURS Branch NEEDED FOR WHEEZING, SHORTNESS OF BREATH OR BRONCHOSPA SMS METFORMIN 2021-08 Yes [id number] TAKE 1 [facility] 850 mg 0-21 TABLET BY [facility] of tablet 00:00: MOUTH [place] 00 THREE Medical TIMES Branch DAILY GLIPIZIDE 2021-08 Yes [id number] 5mg TAKE 1 [facility] XL 5 mg 24 0-21 TABLET BY [facility] of hr tablet 00:00: MOUTH [place] 00 DAILY WITH Medical BREAKFAST Branch amoxicillin 2021-08 Yes [id number] 500mg Take 1 [facility] 500 mg 0-21 tablet by [facility] of tablet 00:00: mouth in [place] the Medical morning Branch and 1 tablet in the evening. empaglifloz 2021-08 Yes [id number] 10mg Take 1 [facility] in 0-21 tablet by [facility] ([place]) 00:00: mouth in [place] 10 mg 00 the Medical morning. Branch ALBUTEROL 2021-08 Yes [id number] INHALE 2 [facility] 90 0-21 PUFFS BY [facility] of mcg/actuati 00:00: MOUTH [place] on inhaler 00 EVERY 6 Medica l HOURS Branch NEEDED FOR WHEEZING, SHORTNESS OF BREATH OR BRONCHOSPA SMS METFORMIN 2021-08 Yes [id number] TAKE 1 [facility] 850 mg 0-21 TABLET BY [facility] of tablet 00:00: MOUTH [place] 00 THREE Medical TIMES Branch DAILY GLIPIZIDE 2021-08 Yes [id number] 5mg TAKE 1 [facility] XL 5 mg 24 0-21 TABLET BY [facility]y of hr tablet 00:00: MOUTH [place] 00 DAILY WITH Medical BREAKFAST Branch amoxicillin 2021-08 Yes [id number] 500mg Take 1 [facility] 500 mg 0-21 tablet by [facility] of tablet 00:00: mouth in [place] the Medical morning Branch and 1 tablet in the evening. empaglifloz 2021-08 Yes [id number] 10mg Take 1 [facility] in 0-21 tablet by [facility] ([place]) 00:00: mouth in [place] 10 mg 00 the Medical morning. Branch ALBUTEROL 2021-08 Yes [id number] INHALE 2 [facility] 90 0-21 PUFFS BY ity of mcg/actuati 00:00: MOUTH [place] on inhaler 00 EVERY 6 Medica l HOURS Branch NEEDED FOR WHEEZING, SHORTNESS OF BREATH OR BRONCHOSPA SMS METFORMIN 2021-08 Yes [id number] TAKE 1 [facility] 850 mg 0-21 TABLET BY [facility] of tablet 00:00: MOUTH [place] 00 THREE Medical TIMES Branch DAILY GLIPIZIDE 2021-08 Yes [id number] 5mg TAKE 1 [facility] XL 5 mg 24 0-21 TABLET BY [facility] of hr tablet 00:00: MOUTH [place] 00 DAILY WITH Medical BREAKFAST Branch amoxicillin 2021-08 Yes [id number] 500mg Take 1 [facility] 500 mg 0-21 tablet by [facility] of tablet 00:00: mouth in [place] the Medical morning Branch and 1 tablet in the evening. empaglifloz 2021-08 Yes [id number] 10mg Take 1 [facility] in 0-21 tablet by [facility] ([place]) 00:00: mouth in [place] 10 mg 00 the Medical morning. Branch ALBUTEROL 2021-08 Yes [id number] INHALE 2 [facility] 90 0-21 PUFFS BY ity of mcg/actuati 00:00: MOUTH [place] on inhaler 00 EVERY 6 Medica l HOURS Branch NEEDED FOR WHEEZING, SHORTNESS OF BREATH OR BRONCHOSPA SMS METFORMIN 2021-08 Yes [id number] TAKE 1 [facility] 850 mg 0-21 TABLET BY [facility] tablet 00:00: MOUTH [place] THREE Medical TIMES Branch DAILY GLIPIZIDE 2021-08 Yes [id number] 5mg TAKE 1 [facility] XL 5 mg 24 0-21 TABLET BY [facility] hr tablet 00:00: MOUTH [place] 00 DAILY WITH Medical BREAKFAST Branch amoxicillin 2021-08 Yes [id number] 500mg Take 1 [facility] 500 mg 0-21 tablet by [facility] tablet 00:00: mouth in [place] the Medical morning Branch and 1 tablet in the evening. empaglifloz 2021-08 Yes [id number] 10mg Take 1 [facility] in 0-21 tablet by [facility] ([place]) 00:00: mouth in [place] 10 mg 00 the Medical morning. Branch ALBUTEROL 2021-08 Yes [id number] INHALE 2 [facility] 90 0-21 PUFFS BY [facility] of mcg/actuati 00:00: MOUTH [place] on inhaler 00 EVERY 6 Medica l HOURS Branch NEEDED FOR WHEEZING, SHORTNESS OF BREATH OR BRONCHOSPA SMS METFORMIN 2021-08 Yes [id number] TAKE 1 [facility] 850 mg 0-21 TABLET BY [facility] tablet 00:00: MOUTH [place] 00 THREE Medical TIMES Branch DAILY GLIPIZIDE 2021-08 Yes [id number] 5mg TAKE 1 [facility] XL 5 mg 24 0-21 TABLET BY [facility] hr tablet 00:00: MOUTH [place] 00 DAILY WITH Medical BREAKFAST Branch amoxicillin 2021-08 Yes [id number] 500mg Take 1 [facility] 500 mg 0-21 tablet by [facility] tablet 00:00: mouth in [place] 00 the Medical morning Branch and 1 tablet in the evening. empaglifloz 2021-08 Yes [id number] 10mg Take 1 [facility] in 0-21 tablet by [facility] ([place]) 00:00: mouth in [place] 10 mg 00 the Medical morning. Branch ALBUTEROL 2021-08 Yes [id number] INHALE 2 [facility] 90 0-21 PUFFS BY [facility] of mcg/actuati 00:00: MOUTH [place] on inhaler 00 EVERY 6 Medica l HOURS Branch NEEDED FOR WHEEZING, SHORTNESS OF BREATH OR BRONCHOSPA SMS METFORMIN 2021-08 Yes [id number] TAKE 1 [facility] 850 mg 0-21 TABLET BY [facility] of tablet 00:00: MOUTH [place] 00 THREE Medical TIMES Branch DAILY GLIPIZIDE 2021-08 Yes [id number] 5mg TAKE 1 [facility] XL 5 mg 24 0-21 TABLET BY [facility] of hr tablet 00:00: MOUTH [place] 00 DAILY WITH Medical BREAKFAST Branch amoxicillin 2021-08 Yes [id number] 500mg Take 1 [facility] 500 mg 0-21 tablet by [facility] tablet 00:00: mouth in [place] 00 the Medical morning Branch and 1 tablet in the evening. empaglifloz 2021-08 Yes [id number] 10mg Take 1 [facility] in 0-21 tablet by [facility] ([place]) 00:00: mouth in [place] 10 mg 00 the Medical morning. Branch ALBUTEROL 2021-08 Yes [id number] INHALE 2 [facility] 90 0-21 PUFFS BY [facility] of mcg/actuati 00:00: MOUTH [place] on inhaler 00 EVERY 6 Medica l HOURS Branch NEEDED FOR WHEEZING, SHORTNESS OF BREATH OR BRONCHOSPA SMS METFORMIN 2021-08 Yes [id number] TAKE 1 [facility] 850 mg 0-21 TABLET BY [facility] tablet 00:00: MOUTH [place] 00 THREE Medical TIMES Branch DAILY GLIPIZIDE 2021-08 Yes [id number] 5mg TAKE 1 [facility] XL 5 mg 24 0-21 TABLET BY [facility] hr tablet 00:00: MOUTH [place] 00 DAILY WITH Medical BREAKFAST Branch amoxicillin 2021-08 Yes [id number] 500mg Take 1 [facility] 500 mg 0-21 tablet by [facility] tablet 00:00: mouth in [place] 00 the Medical morning Branch and 1 tablet in the evening. empaglifloz 2021-08 Yes [id number] 10mg Take 1 [facility] in 0-21 tablet by [facility] ([place]) 00:00: mouth in [place] 10 mg 00 the Medical morning. Branch ALBUTEROL 2021-08 Yes [id number] INHALE 2 [facility] 90 0-21 PUFFS BY [facility] of mcg/actuati 00:00: MOUTH [place] on inhaler 00 EVERY 6 Medica l HOURS Branch NEEDED FOR WHEEZING, SHORTNESS OF BREATH OR BRONCHOSPA SMS METFORMIN 2021-08 Yes [id number] TAKE 1 [facility] 850 mg 0-21 TABLET BY [facility] of tablet 00:00: MOUTH [place] 00 THREE Medical TIMES Branch DAILY GLIPIZIDE 2021-08 Yes [id number] 5mg TAKE 1 [facility] XL 5 mg 24 0-21 TABLET BY [facility] hr tablet 00:00: MOUTH [place] 00 DAILY WITH Medical BREAKFAST Branch amoxicillin 2021-08 Yes [id number] 500mg Take 1 [facility] 500 mg 0-21 tablet by [facility] tablet 00:00: mouth in [place] 00 the Medical morning Branch and 1 tablet in the evening. empaglifloz 2021-08 Yes [id number] 10mg Take 1 [facility] in 0-21 tablet by [facility] ([place]) 00:00: mouth in [place] 10 mg 00 the Medical morning. Branch ALBUTEROL 2021-08 Yes [id number] INHALE 2 [facility] 90 0-21 PUFFS BY [facility] of mcg/actuati 00:00: MOUTH [place] on inhaler 00 EVERY 6 Medica l HOURS Branch NEEDED FOR WHEEZING, SHORTNESS OF BREATH OR BRONCHOSPA SMS METFORMIN 2021-08 Yes [id number] TAKE 1 [facility] 850 mg 0-21 TABLET BY [facility] tablet 00:00: MOUTH [place] 00 THREE Medical TIMES Branch DAILY GLIPIZIDE 2021-08 Yes [id number] 5mg TAKE 1 [facility] XL 5 mg 24 0-21 TABLET BY [facility] hr tablet 00:00: MOUTH [place] 00 DAILY WITH Medical BREAKFAST Branch amoxicillin 2021-08 Yes [id number] 500mg Take 1 [facility] 500 mg 0-21 tablet by [facility] of tablet 00:00: mouth in [place] 00 the Medical morning Branch and 1 tablet in the evening. empaglifloz 2021-08 Yes [id number] 10mg Take 1 [facility] in 0-21 tablet by [facility] ([place]) 00:00: mouth in [place] 10 mg 00 the Medical morning. Branch ALBUTEROL 2021-08 Yes [id number] INHALE 2 [facility] 90 0-21 PUFFS BY [facility] of mcg/actuati 00:00: MOUTH [place] on inhaler 00 EVERY 6 Medica l HOURS Branch NEEDED FOR WHEEZING, SHORTNESS OF BREATH OR BRONCHOSPA SMS METFORMIN 2021-08 Yes [id number] TAKE 1 [facility] 850 mg 0-21 TABLET BY [facility] of tablet 00:00: MOUTH [place] 00 THREE Medical TIMES Branch DAILY GLIPIZIDE 2021-08 Yes [id number] 5mg TAKE 1 [facility] XL 5 mg 24 0-21 TABLET BY [facility] of hr tablet 00:00: MOUTH [place] 00 DAILY WITH Medical BREAKFAST Branch amoxicillin 2021-08 Yes [id number] 500mg Take 1 [facility] 500 mg 0-21 tablet by [facility] of tablet 00:00: mouth in [place] 00 the Medical morning Branch and 1 tablet in the evening. empaglifloz 2021-08 Yes [id number] 10mg Take 1 [facility] in 0-21 tablet by [facility] ([place]) 00:00: mouth in [place] 10 mg 00 the Medical morning. Branch ALBUTEROL 2021-08 Yes [id number] INHALE 2 [facility] 90 0-21 PUFFS BY [facility] of mcg/actuati 00:00: MOUTH [place] on inhaler 00 EVERY 6 Medica l HOURS Branch NEEDED FOR WHEEZING, SHORTNESS OF BREATH OR BRONCHOSPA SMS METFORMIN 2021-08 Yes [id number] TAKE 1 [facility] 850 mg 0-21 TABLET BY [facility] of tablet 00:00: MOUTH [place] 00 THREE Medical TIMES Branch DAILY GLIPIZIDE 2021-08 Yes [id number] 5mg TAKE 1 [facility] XL 5 mg 24 0-21 TABLET BY [facility] of hr tablet 00:00: MOUTH [place] 00 DAILY WITH Medical BREAKFAST Branch amoxicillin 2021-08 Yes [id number] 500mg Take 1 [facility] 500 mg 0-21 tablet by [facility] of tablet 00:00: mouth in [place] 00 the Medical morning Branch and 1 tablet in the evening. empaglifloz 2021-08 Yes [id number] 10mg Take 1 [facility] in 0-21 tablet by [facility] ([place]) 00:00: mouth in [place] 10 mg 00 the Medical morning. Branch QUINAPRIL 2021-08- No [id number] 40mg TAKE 1 [facility] 40 mg 0-21 12-07 TABLET BY [facility] of tablet 00:00: 00:00 MOUTH [place] 00 :00 EVERY Medical MORNING Branch QUINAPRIL 2021-08- No [id number] 40mg TAKE 1 [facility] 40 mg 0-21 12-07 TABLET BY [facility] of tablet 00:00: 00:00 MOUTH [place] 00 :00 EVERY Medical MORNING Branch HYDROcodone 2021-08 Yes 2745 1{tbl} Take 1 [facility] -acetaminop 0-05 tablet by [facility] of hen 7.5-325 00:00: mouth [place] mg per 00 every 6 Medical tablet (six) Branch hours as needed for Pain. Indication s: chronic pain HYDROcodone 2021-08 Yes 2745 1{tbl} Take 1 [facility] -acetaminop 0-05 tablet by [facility] of hen 7.5-325 00:00: mouth [place] mg per 00 every 6 Medical tablet (six) Branch hours as needed for Pain. Indication s: chronic pain HYDROcodone 2021-08 Yes 2745 1{tbl} Take 1 [facility] -acetaminop 0-05 tablet by [facility] of hen 7.5-325 00:00: mouth [place] mg per 00 every 6 Medical tablet (six) Branch hours as needed for Pain. Indication s: chronic pain HYDROcodone 2021-08 Yes 2745 1{tbl} Take 1 [facility] -acetaminop 0-05 tablet by [facility] of hen 7.5-325 00:00: mouth [place] mg per 00 every 6 Medical tablet (six) Branch hours as needed for Pain. Indication s: chronic pain HYDROcodone 2021-08 Yes 2745 1{tbl} Take 1 [facility] -acetaminop 0-05 tablet by [facility] of hen 7.5-325 00:00: mouth [place] mg per 00 every 6 Medical tablet (six) Branch hours as needed for Pain. Indication s: chronic pain HYDROcodone 2021-08 Yes 2745 1{tbl} Take 1 [facility] -acetaminop 0-05 tablet by [facility] of hen 7.5-325 00:00: mouth [place] mg per 00 every 6 Medical tablet (six) Branch hours as needed for Pain. Indication s: chronic pain HYDROcodone 2021-08 Yes 2745 1{tbl} Take 1 [facility] -acetaminop 0-05 tablet by [facility] of hen 7.5-325 00:00: mouth [place] mg per 00 every 6 Medical tablet (six) Branch hours as needed for Pain. Indication s: chronic pain HYDROcodone 2021-08 Yes 2745 1{tbl} Take 1 [facility] -acetaminop 0-05 tablet by [facility] of hen 7.5-325 00:00: mouth [place] mg per 00 every 6 Medical tablet (six) Branch hours as needed for Pain. Indication s: chronic pain HYDROcodone 2021-08 Yes 2745 1{tbl} Take 1 [facility] -acetaminop 0-05 tablet by [facility] of hen 7.5-325 00:00: mouth [place] mg per 00 every 6 Medical tablet (six) Branch hours as needed for Pain. Indication s: chronic pain HYDROcodone 2021-08 Yes 2745 1{tbl} Take 1 [facility] -acetaminop 0-05 tablet by [facility] of hen 7.5-325 00:00: mouth [place] mg per 00 every 6 Medical tablet (six) Branch hours as needed for Pain. Indication s: chronic pain HYDROcodone 2021-08 Yes 2745 1{tbl} Take 1 [facility] -acetaminop 0-05 tablet by [facility] of hen 7.5-325 00:00: mouth [place] mg per 00 every 6 Medical tablet (six) Branch hours as needed for Pain. Indication s: chronic pain HYDROcodone 2021-08 Yes 2745 1{tbl} Take 1 [facility] -acetaminop 0-05 tablet by [facility] of hen 7.5-325 00:00: mouth [place] mg per 00 every 6 Medical tablet (six) Branch hours as needed for Pain. Indication s: chronic pain HYDROcodone 2021-08 Yes 2745 1{tbl} Take 1 [facility] -acetaminop 0-05 tablet by [facility] of hen 7.5-325 00:00: mouth [place] mg per 00 every 6 Medical tablet (six) Branch hours as needed for Pain. Indication s: chronic pain HYDROcodone 2021-08 Yes 2745 1{tbl} Take 1 [facility] -acetaminop 0-05 tablet by [facility] of hen 7.5-325 00:00: mouth [place] mg per 00 every 6 Medical tablet (six) Branch hours as needed for Pain. Indication s: chronic pain HYDROcodone 2021-08 Yes 2745 1{tbl} Take 1 [facility] -acetaminop 0-05 tablet by [facility] of hen 7.5-325 00:00: mouth [place] mg per 00 every 6 Medical tablet (six) Branch hours as needed for Pain. Indication s: chronic pain HYDROcodone 2021-08 Yes 2745 1{tbl} Take 1 [facility] -acetaminop 0-05 tablet by [facility] of hen 7.5-325 00:00: mouth [place] mg per 00 every 6 Medical tablet (six) Branch hours as needed for Pain. Indication s: chronic pain HYDROcodone 2021-08 Yes 2745 1{tbl} Take 1 [facility] -acetaminop 0-05 tablet by [facility] of hen 7.5-325 00:00: mouth [place] mg per 00 every 6 Medical tablet (six) Branch hours as needed for Pain. Indication s: chronic pain HYDROcodone 2021-08 Yes 2745 1{tbl} Take 1 [facility] -acetaminop 0-05 tablet by [facility] of hen 7.5-325 00:00: mouth [place] mg per 00 every 6 Medical tablet (six) Branch hours as needed for Pain. Indication s: chronic pain HYDROcodone 2021-08 Yes 2745 1{tbl} Take 1 [facility] -acetaminop 0-05 tablet by [facility] of hen 7.5-325 00:00: mouth [place] mg per 00 every 6 Medical tablet (six) Branch hours as needed for Pain. Indication s: chronic pain HYDROcodone 2021-08 Yes 2745 1{tbl} Take 1 [facility] -acetaminop 0-05 tablet by [facility] of hen 7.5-325 00:00: mouth [place] mg per 00 every 6 Medical tablet (six) Branch hours as needed for Pain. Indication s: chronic pain HYDROcodone 2021-08- No 2745 1{tbl} Take 1 [facility] -acetaminop 0-05 11-02 tablet by it y of hen 7.5-325 00:00: 00:00 mouth [place] mg per 00 :00 every 6 Medical tablet (six) Branch hours as needed for Pain. Indication s: chronic pain gabapentin 2021-0 Yes [id number] TAKE 1 [facility] 300 mg 9-27 CAPSULE BY [facility] capsule 00:00: MOUTH [place] 00 TIMES Medical DAILY Branch gabapentin 2021-0 Yes [id number] TAKE 1 [facility] 300 mg 9-27 CAPSULE BY [facility] of capsule 00:00: MOUTH [place] 00 TIMES Medical DAILY Branch gabapentin 2021-0 Yes [id number] TAKE 1 [facility] 300 mg 9-27 CAPSULE BY [facility] of capsule 00:00: MOUTH [place] 00 TIMES Medical DAILY Branch gabapentin 2021-0 Yes [id number] TAKE 1 [facility] 300 mg 9-27 CAPSULE BY [facility] of capsule 00:00: MOUTH [place] 00 TIMES Medical DAILY Branch gabapentin 2-0 Yes [id number] TAKE 1 [facility] 300 mg 9-27 CAPSULE BY [facility] of capsule 00:00: MOUTH [place] 00 TIMES Medical DAILY Branch gabapentin 2-0 Yes [id number] TAKE 1 [facility] 300 mg 9-27 CAPSULE BY [facility] of capsule 00:00: MOUTH [place] 00 TIMES Medical DAILY Branch gabapentin 2-0 Yes [id number] TAKE 1 [facility] 300 mg 9-27 CAPSULE BY [facility] of capsule 00:00: MOUTH [place] 00 TIMES Medical DAILY Branch gabapentin 2-0 Yes [id number] TAKE 1 [facility] 300 mg 9-27 CAPSULE BY [facility] of capsule 00:00: MOUTH [place] 00 TIMES Medical DAILY Branch gabapentin 2-0 Yes [id number] TAKE 1 [facility] 300 mg 9-27 CAPSULE BY [facility] of capsule 00:00: MOUTH [place] 00 TIMES Medical DAILY Branch gabapentin 2-0 Yes [id number] TAKE 1 [facility] 300 mg 9-27 CAPSULE BY [facility] of capsule 00:00: MOUTH FOUR [place] 00 TIMES Medical DAILY Branch gabapentin 2022-0 Yes [id number] TAKE 1 [facility] 300 mg 9-27 CAPSULE BY [facility] of capsule 00:00: MOUTH [place] 00 TIMES Medical DAILY Branch gabapentin 2022-0 Yes [id number] TAKE 1 [facility] 300 mg 9-27 CAPSULE BY [facility] of capsule 00:00: MOUTH [place] 00 TIMES Medical DAILY Branch gabapentin 2022-0 Yes [id number] TAKE 1 [facility] 300 mg 9-27 CAPSULE BY [facility] of capsule 00:00: MOUTH FOUR [place] 00 TIMES Medical DAILY Branch gabapentin 2022-0 Yes [id number] TAKE 1 [facility] 300 mg 9-27 CAPSULE BY [facility] of capsule 00:00: MOUTH FOUR [place] 00 TIMES Medical DAILY Branch gabapentin 2022-0 Yes [id number] TAKE 1 [facility] 300 mg 9-27 CAPSULE BY [facility] of capsule 00:00: MOUTH [place] 00 TIMES Medical DAILY Branch gabapentin 2022-0 Yes [id number] TAKE 1 [facility] 300 mg 9-27 CAPSULE BY [facility] of capsule 00:00: MOUTH [place] 00 TIMES Medical DAILY Branch gabapentin 2022-0 Yes [id number] TAKE 1 [facility] 300 mg 9-27 CAPSULE BY [facility] of capsule 00:00: MOUTH FOUR [place] 00 TIMES Medical DAILY Branch gabapentin 2022-0 Yes [id number] TAKE 1 [facility] 300 mg 9-27 CAPSULE BY [facility] of capsule 00:00: MOUTH FOUR [place] 00 TIMES Medical DAILY Branch gabapentin 2022-0 Yes [id number] TAKE 1 [facility] 300 mg 9-27 CAPSULE BY [facility] of capsule 00:00: MOUTH FOUR [place] 00 TIMES Medical DAILY Branch gabapentin 2022-0 Yes [id number] TAKE 1 [facility] 300 mg 9-27 CAPSULE BY [facility] of capsule 00:00: MOUTH FOUR [place] 00 TIMES Medical DAILY Branch gabapentin 2022-0 Yes [id number] TAKE 1 [facility] 300 mg 9-27 CAPSULE BY [facility] of capsule 00:00: MOUTH FOUR [place] 00 TIMES Medical DAILY Branch gabapentin 2022-0 Yes [id number] TAKE 1 [facility] 300 mg 9-27 CAPSULE BY [facility] of capsule 00:00: MOUTH FOUR [place] 00 TIMES Medical DAILY Branch gabapentin 2022-0 Yes [id number] TAKE 1 [facility] 300 mg 9-27 CAPSULE BY [facility] of capsule 00:00: MOUTH FOUR [place] 00 TIMES Medical DAILY Branch gabapentin 2022-0 Yes [id number] TAKE 1 [facility] 300 mg 9-27 CAPSULE BY [facility] of capsule 00:00: MOUTH FOUR [place] 00 TIMES Medical DAILY Branch gabapentin 2022-0 Yes [id number] TAKE 1 [facility] 300 mg 9-27 CAPSULE BY [facility] of capsule 00:00: MOUTH FOUR [place] 00 TIMES Medical DAILY Branch gabapentin 2022-0 Yes [id number] TAKE 1 [facility] 300 mg 9-27 CAPSULE BY [facility] of capsule 00:00: MOUTH FOUR [place] 00 TIMES Medical DAILY Branch gabapentin 2022-0 Yes [id number] TAKE 1 [facility] 300 mg 9-27 CAPSULE BY [facility] of capsule 00:00: MOUTH FOUR [place] 00 TIMES Medical DAILY Branch gabapentin 2022-0 Yes [id number] TAKE 1 [facility] 300 mg 9-27 CAPSULE BY [facility] of capsule 00:00: MOUTH FOUR [place] 00 TIMES Medical DAILY Branch gabapentin 2022-0 Yes [id number] TAKE 1 [facility] 300 mg 9-27 CAPSULE BY [facility] of capsule 00:00: MOUTH FOUR [place] 00 TIMES Medical DAILY Branch gabapentin 2022-0 Yes [id number] TAKE 1 [facility] 300 mg 9-27 CAPSULE BY [facility] of capsule 00:00: MOUTH FOUR [place] 00 TIMES Medical DAILY Branch gabapentin 2022-0 Yes [id number] TAKE 1 [facility] 300 mg 9-27 CAPSULE BY [facility] of capsule 00:00: MOUTH FOUR [place] 00 TIMES Medical DAILY Branch gabapentin 2022-0 Yes [id number] TAKE 1 [facility] 300 mg 9-27 CAPSULE BY [facility] of capsule 00:00: MOUTH FOUR [place] 00 TIMES Medical DAILY Branch gabapentin 2022-0 Yes [id number] TAKE 1 [facility] 300 mg 9-27 CAPSULE BY [facility] of capsule 00:00: MOUTH FOUR [place] 00 TIMES Medical DAILY Branch gabapentin 2022-0 Yes [id number] TAKE 1 [facility] 300 mg 9-27 CAPSULE BY [facility] of capsule 00:00: MOUTH FOUR [place] 00 TIMES Medical DAILY Branch gabapentin 2022-0 Yes [id number] TAKE 1 [facility] 300 mg 9-27 CAPSULE BY [facility] of capsule 00:00: MOUTH FOUR [place] 00 TIMES Medical DAILY Branch gabapentin 2022-0 Yes [id number] TAKE 1 [facility] 300 mg 9-27 CAPSULE BY [facility] of capsule 00:00: MOUTH FOUR [place] 00 TIMES Medical DAILY Branch gabapentin 2022-0 Yes [id number] TAKE 1 [facility] 300 mg 9-27 CAPSULE BY [facility] of capsule 00:00: MOUTH FOUR [place] 00 TIMES Medical DAILY Branch gabapentin 2022-0 Yes [id number] TAKE 1 [facility] 300 mg 9-27 CAPSULE BY [facility] of capsule 00:00: MOUTH FOUR [place] 00 TIMES Medical DAILY Branch gabapentin 2022-0 Yes [id number] TAKE 1 [facility] 300 mg 9-27 CAPSULE BY [facility] of capsule 00:00: MOUTH FOUR [place] 00 TIMES Medical DAILY Branch gabapentin 2022-0 Yes [id number] TAKE 1 [facility] 300 mg 9-27 CAPSULE BY [facility] of capsule 00:00: MOUTH FOUR [place] 00 TIMES Medical DAILY Branch gabapentin 2022-0 Yes [id number] TAKE 1 [facility] 300 mg 9-27 CAPSULE BY [facility] of capsule 00:00: MOUTH FOUR [place] 00 TIMES Medical DAILY Branch gabapentin 2022-0 Yes [id number] TAKE 1 [facility] 300 mg 9-27 CAPSULE BY [facility] of capsule 00:00: MOUTH FOUR [place] 00 TIMES Medical DAILY Branch gabapentin 2022-0 Yes [id number] TAKE 1 [facility] 300 mg 9-27 CAPSULE BY [facility] of capsule 00:00: MOUTH FOUR [place] 00 TIMES Medical DAILY Branch gabapentin 2022-0 Yes [id number] TAKE 1 [facility] 300 mg 9-27 CAPSULE BY [facility] of capsule 00:00: MOUTH FOUR [place] 00 TIMES Medical DAILY Branch gabapentin 2022-0 Yes [id number] TAKE 1 [facility] 300 mg 9-27 CAPSULE BY [facility] of capsule 00:00: MOUTH FOUR [place] 00 TIMES Medical DAILY Branch gabapentin 2022-0 Yes [id number] TAKE 1 [facility] 300 mg 9-27 CAPSULE BY [facility] of capsule 00:00: MOUTH FOUR [place] 00 TIMES Medical DAILY Branch gabapentin 2022-0 Yes [id number] TAKE 1 [facility] 300 mg 9-27 CAPSULE BY [facility] of capsule 00:00: MOUTH FOUR [place] 00 TIMES Medical DAILY Branch gabapentin 2022-0 Yes [id number] TAKE 1 [facility] 300 mg 9-27 CAPSULE BY [facility] of capsule 00:00: MOUTH FOUR [place] 00 TIMES Medical DAILY Branch gabapentin 2022-0 Yes [id number] TAKE 1 [facility] 300 mg 9-27 CAPSULE BY [facility] of capsule 00:00: MOUTH FOUR [place] 00 TIMES Medical DAILY Branch gabapentin 2022-0 Yes [id number] TAKE 1 [facility] 300 mg 9-27 CAPSULE BY [facility] of capsule 00:00: MOUTH FOUR [place] 00 TIMES Medical DAILY Branch gabapentin 2022-0 Yes [id number] TAKE 1 [facility] 300 mg 9-27 CAPSULE BY [facility] of capsule 00:00: MOUTH FOUR [place] 00 TIMES Medical DAILY Branch gabapentin 2022-0 Yes [id number] TAKE 1 [facility] 300 mg 9-27 CAPSULE BY [facility] of capsule 00:00: MOUTH FOUR [place] 00 TIMES Medical DAILY Branch gabapentin 2022-0 Yes [id number] TAKE 1 [facility] 300 mg 9-27 CAPSULE BY [facility] of capsule 00:00: MOUTH FOUR [place] 00 TIMES Medical DAILY Branch gabapentin 2022-0 Yes [id number] TAKE 1 [facility] 300 mg 9-27 CAPSULE BY [facility] of capsule 00:00: MOUTH FOUR [place] 00 TIMES Medical DAILY Branch gabapentin 2022-0 Yes [id number] TAKE 1 [facility] 300 mg 9-27 CAPSULE BY [facility] of capsule 00:00: MOUTH FOUR [place] 00 TIMES Medical DAILY Branch gabapentin 2022-0 Yes [id number] TAKE 1 [facility] 300 mg 9-27 CAPSULE BY [facility] of capsule 00:00: MOUTH FOUR [place] 00 TIMES Medical DAILY Branch gabapentin 2022-0 Yes [id number] TAKE 1 [facility] 300 mg 9-27 CAPSULE BY [facility] of capsule 00:00: MOUTH FOUR [place] 00 TIMES Medical DAILY Branch gabapentin 2022-0 Yes [id number] TAKE 1 [facility] 300 mg 9-27 CAPSULE BY [facility] of capsule 00:00: MOUTH FOUR [place] 00 TIMES Medical DAILY Branch gabapentin 2022-0 Yes [id number] TAKE 1 [facility] 300 mg 9-27 CAPSULE BY [facility] of capsule 00:00: MOUTH FOUR [place] 00 TIMES Medical DAILY Branch gabapentin 2022-0 Yes [id number] TAKE 1 [facility] 300 mg 9-27 CAPSULE BY [facility] of capsule 00:00: MOUTH FOUR [place] 00 TIMES Medical DAILY Branch gabapentin 2022-0 2022- No [id number] TAKE 1 [facility] 300 mg 9-27 12-20 CAPSULE BY ity of capsule 00:00: 00:00 MOUTH FOUR [place] 00 :00 TIMES Medical DAILY Branch clonazePAM 2022-0 Yes [id number] 1mg Take 1 [facility] 1 mg tablet 9-26 tablet by ity of 00:00: mouth in 00 the Medical morning Branch and 1 tablet at noon and 1 tablet in the evening. clonazePAM 2022-0 Yes [id number] 1mg Take 1 [facility] 1 mg tablet 9-26 tablet by ity of 00:00: mouth in [place] [address] the Medical morning Branch and 1 tablet at noon and 1 tablet in the evening. clonazePAM 2022-0 Yes [id number] 1mg Take 1 [facility] 1 mg tablet 9-26 tablet by ity of 00:00: mouth in [place] 00 the Medical morning Branch and 1 tablet at noon and 1 tablet in the evening. clonazePAM 2022-0 Yes [id number] 1mg Take 1 [facility] 1 mg tablet 9-26 tablet by ity of 00:00: mouth in [place] 00 the Medical morning Branch and 1 tablet at noon and 1 tablet in the evening. clonazePAM 2022-0 Yes [id number] 1mg Take 1 [facility] 1 mg tablet 9-26 tablet by [facility]y of 00:00: mouth in [place] [address] the Medical morning Branch and 1 tablet at noon and 1 tablet in the evening. clonazePAM 2022-0 Yes [id number] 1mg Take 1 [facility] 1 mg tablet 9-26 tablet by [facility]y of 00:00: mouth in [place] [address] the Medical morning Branch and 1 tablet at noon and 1 tablet in the evening. clonazePAM 2022-0 Yes [id number] 1mg Take 1 [facility] 1 mg tablet 9-26 tablet by [facility]y of 00:00: mouth in [place] [address] the Medical morning Branch and 1 tablet at noon and 1 tablet in the evening. clonazePAM 2022-0 Yes [id number] 1mg Take 1 [facility] 1 mg tablet 9-26 tablet by ity of 00:00: mouth in [place] [address] the Medical morning Branch and 1 tablet at noon and 1 tablet in the evening. clonazePAM 2022-0 Yes [id number] 1mg Take 1 [facility] 1 mg tablet 9-26 tablet by [facility] of 00:00: mouth in [place] [address] the Medical morning Branch and 1 tablet at noon and 1 tablet in the evening. clonazePAM 2022-0 Yes [id number] 1mg Take 1 [facility] 1 mg tablet 9-26 tablet by ity of 00:00: mouth in [place] [address] the Medical morning Branch and 1 tablet at noon and 1 tablet in the evening. clonazePAM 2022-0 Yes [id number] 1mg Take 1 [facility] 1 mg tablet 9-26 tablet by [facility]y of 00:00: mouth in [place] [address] the Medical morning Branch and 1 tablet at noon and 1 tablet in the evening. clonazePAM 2022-0 Yes [id number] 1mg Take 1 [facility] 1 mg tablet 9-26 tablet by [facility] of 00:00: mouth in [place] [address] the Medical morning Branch and 1 tablet at noon and 1 tablet in the evening. clonazePAM 2022-0 Yes [id number] 1mg Take 1 [facility] 1 mg tablet 9-26 tablet by [facility] of 00:00: mouth in [place] [address] the Medical morning Branch and 1 tablet at noon and 1 tablet in the evening. clonazePAM 2022-0 Yes [id number] 1mg Take 1 [facility] 1 mg tablet 9-26 tablet by [facility] of 00:00: mouth in [place] [address] the Medical morning Branch and 1 tablet at noon and 1 tablet in the evening. clonazePAM 2022-0 Yes [id number] 1mg Take 1 [facility] 1 mg tablet 9-26 tablet by [facility] of 00:00: mouth in [place] [address] the Medical morning Branch and 1 tablet at noon and 1 tablet in the evening. clonazePAM 2022-0 Yes [id number] 1mg Take 1 [facility] 1 mg tablet 9-26 tablet by [facility] of 00:00: mouth in [place] [address] the Medical morning Branch and 1 tablet at noon and 1 tablet in the evening. clonazePAM 2022-0 Yes [id number] 1mg Take 1 [facility] 1 mg tablet 9-26 tablet by [facility] of 00:00: mouth in [place] [address] the Medical morning Branch and 1 tablet at noon and 1 tablet in the evening. clonazePAM 2022-0 Yes [id number] 1mg Take 1 [facility] 1 mg tablet 9-26 tablet by [facility] of 00:00: mouth in [place] [address] the Medical morning Branch and 1 tablet at noon and 1 tablet in the evening. clonazePAM 2022-0 Yes [id number] 1mg Take 1 [facility] 1 mg tablet 9-26 tablet by [facility] of 00:00: mouth in [place] [address] the Medical morning Branch and 1 tablet at noon and 1 tablet in the evening. clonazePAM 2022-0 Yes [id number] 1mg Take 1 [facility] 1 mg tablet 9-26 tablet by [facility] of 00:00: mouth in [place] [address] the Medical morning Branch and 1 tablet at noon and 1 tablet in the evening. clonazePAM 2022-0 Yes [id number] 1mg Take 1 [facility] 1 mg tablet 9-26 tablet by [facility] of 00:00: mouth in [place] [address] the Medical morning Branch and 1 tablet at noon and 1 tablet in the evening. clonazePAM 2022-0 Yes [id number] 1mg Take 1 [facility] 1 mg tablet 9-26 tablet by [facility] 00:00: mouth in [place] [address] the Medical morning Branch and 1 tablet at noon and 1 tablet in the evening. clonazePAM 2022-0 Yes [id number] 1mg Take 1 [facility] 1 mg tablet 9-26 tablet by [facility] of 00:00: mouth in [place] [address] the Medical morning Branch and 1 tablet at noon and 1 tablet in the evening. clonazePAM 2022-0 Yes [id number] 1mg Take 1 [facility] 1 mg tablet 9-26 tablet by [facility] of 00:00: mouth in [place] [address] the Medical morning Branch and 1 tablet at noon and 1 tablet in the evening. clonazePAM 2022-0 Yes [id number] 1mg Take 1 [facility] 1 mg tablet 9-26 tablet by [facility] of 00:00: mouth in [place] [address] the Medical morning Branch and 1 tablet at noon and 1 tablet in the evening. clonazePAM 2022-0 Yes [id number] 1mg Take 1 [facility] 1 mg tablet 9-26 tablet by [facility] of 00:00: mouth in [place] [address] the Medical morning Branch and 1 tablet at noon and 1 tablet in the evening. clonazePAM 2022-0 Yes [id number] 1mg Take 1 [facility] 1 mg tablet 9-26 tablet by [facility] of 00:00: mouth in [place] [address] the Medical morning Branch and 1 tablet at noon and 1 tablet in the evening. clonazePAM 2022-0 Yes [id number] 1mg Take 1 [facility] 1 mg tablet 9-26 tablet by [facility] of 00:00: mouth in [place] [address] the Medical morning Branch and 1 tablet at noon and 1 tablet in the evening. clonazePAM 2022-0 Yes [id number] 1mg Take 1 [facility] 1 mg tablet 9-26 tablet by [facility] of 00:00: mouth in [place] [address] the Medical morning Branch and 1 tablet at noon and 1 tablet in the evening. clonazePAM 2022-0 Yes [id number] 1mg Take 1 [facility] 1 mg tablet 9-26 tablet by [facility] of 00:00: mouth in [place] [address] the Medical morning Branch and 1 tablet at noon and 1 tablet in the evening. clonazePAM 2022-0 Yes [id number] 1mg Take 1 [facility] 1 mg tablet 9-26 tablet by [facility] of 00:00: mouth in [place] [address] the Medical morning Branch and 1 tablet at noon and 1 tablet in the evening. clonazePAM 2022-0 Yes [id number] 1mg Take 1 [facility] 1 mg tablet 9-26 tablet by [facility] of 00:00: mouth in [place] [address] the Medical morning Branch and 1 tablet at noon and 1 tablet in the evening. clonazePAM 2022-0 Yes [id number] 1mg Take 1 [facility] 1 mg tablet 9-26 tablet by [facility] of 00:00: mouth in [place] [address] the Medical morning Branch and 1 tablet at noon and 1 tablet in the evening. clonazePAM 2022-0 Yes [id number] 1mg Take 1 [facility] 1 mg tablet 9-26 tablet by [facility] of 00:00: mouth in [place] [address] the Medical morning Branch and 1 tablet at noon and 1 tablet in the evening. clonazePAM 2022-0 Yes [id number] 1mg Take 1 [facility] 1 mg tablet 9-26 tablet by [facility] of 00:00: mouth in [place] [address] the Medical morning [place] and 1 tablet at noon and 1 tablet in the evening. clonazePAM 2022-0 Yes [id number] 1mg Take 1 [facility] 1 mg tablet 9-26 tablet by [facility] of 00:00: mouth in [place] [address] the Medical morning Branch and 1 tablet at noon and 1 tablet in the evening. clonazePAM 2022-0 Yes [id number] 1mg Take 1 [facility] 1 mg tablet 9-26 tablet by [facility] of 00:00: mouth in [place] [address] the Medical morning Branch and 1 tablet at noon and 1 tablet in the evening. clonazePAM 2022-0 Yes [id number] 1mg Take 1 [facility] 1 mg tablet 9-26 tablet by [facility] of 00:00: mouth in [place] [address] the Medical morning Branch and 1 tablet at noon and 1 tablet in the evening. clonazePAM 2022-0 Yes [id number] 1mg Take 1 [facility] 1 mg tablet 9-26 tablet by [facility] of 00:00: mouth in [place] 00 the Medical morning Branch and 1 tablet at noon and 1 tablet in the evening. clonazePAM 2-0 Yes [id number] 1mg Take 1 [facility] 1 mg tablet 9-26 tablet by [facility] of 00:00: mouth in [place] 00 the Medical morning Branch and 1 tablet at noon and 1 tablet in the evening. clonazePAM 2-0 Yes [id number] 1mg Take 1 [facility] 1 mg tablet 9-26 tablet by [facility] of 00:00: mouth in [place] 00 the Medical morning Branch and 1 tablet at noon and 1 tablet in the evening. clonazePAM 2-0 Yes [id number] 1mg Take 1 [facility] 1 mg tablet 9-26 tablet by [facility] of 00:00: mouth in [place] 00 the Medical morning Branch and 1 tablet at noon and 1 tablet in the evening. clonazePAM 2021-0 2022- No [id number] 1mg Take 1 [facility] 1 mg tablet 9- 11-21 tablet by it y of 00:00: 00:00 mouth in [place] 00 :00 the Medical morning Branch and 1 tablet at noon and 1 tablet in the evening. clonazePAM 2021-0 2- No [id number] 1mg Take 1 [facility] 1 mg tablet -28 06-21 tablet by it y of 00:00: 00:00 mouth in [place] 00 :00 the Medical morning Branch and 1 tablet at noon and 1 tablet in the evening. HYDROcodone 2021-0 Yes 2745 1{tbl} Take 1 [facility] -acetaminop 9-07 tablet by [facility] of hen 7.5-325 00:00: mouth [place] mg per 00 every 6 Medical tablet (six) Branch hours as needed for Pain. Indication s: chronic pain HYDROcodone 2021-0 Yes 2745 1{tbl} Take 1 [facility] -acetaminop 9-07 tablet by [facility] of hen 7.5-325 00:00: mouth [place] mg per 00 every 6 Medical tablet (six) Branch hours as needed for Pain. Indication s: chronic pain HYDROcodone 2-0 Yes 2745 1{tbl} Take 1 [facility] -acetaminop 9-07 tablet by [facility] of hen 7.5-325 00:00: mouth [place] mg per 00 every 6 Medical tablet (six) Branch hours as needed for Pain. Indication s: chronic pain HYDROcodone 2021-0 Yes 2745 1{tbl} Take 1 [facility] -acetaminop 9-07 tablet by [facility] of hen 7.5-325 00:00: mouth [place] mg per 00 every 6 Medical tablet (six) Branch hours as needed for Pain. Indication s: chronic pain HYDROcodone 2021-0 Yes 2745 1{tbl} Take 1 [facility] -acetaminop 9-07 tablet by [facility] of hen 7.5-325 00:00: mouth [place] mg per 00 every 6 Medical tablet (six) Branch hours as needed for Pain. Indication s: chronic pain HYDROcodone 0 202- No 2745 1{tbl} Take 1 [facility] -acetaminop 9-07 10-05 tablet by it y of hen 7.5-325 00:00: 00:[place] mg per 00 :00 every 6 Medical tablet (six) Branch hours as needed for Pain. Indication s: chronic pain VERAPAMIL 2021-0 Yes [id number] 240mg TAKE 1 [facility] 240 mg 24 8-29 CAPSULE BY [facility] of hr capsule 00:00: MOUTH DAILY Medical Branch VERAPAMIL 2022-0 Yes [id number] 240mg TAKE 1 [facility] 240 mg 24 8-29 CAPSULE BY [facility] of hr capsule 00:00: MOUTH DAILY Medical Branch VERAPAMIL 2022-0 Yes [id number] 240mg TAKE 1 [facility] 240 mg 24 8-29 CAPSULE BY [facility] of hr capsule 00:00: MOUTH DAILY Medical Branch VERAPAMIL 2022-0 Yes [id number] 240mg TAKE 1 [facility] 240 mg 24 8-29 CAPSULE BY [facility] of hr capsule 00:00: MOUTH DAILY Medical Branch VERAPAMIL 2022-0 Yes [id number] 240mg TAKE 1 [facility] 240 mg 24 8-29 CAPSULE BY [facility] of hr capsule 00:00: MOUTH DAILY Medical Branch VERAPAMIL 2022-0 Yes [id number] 240mg TAKE 1 [facility] 240 mg 24 8-29 CAPSULE BY [facility] of hr capsule 00:00: MOUTH 00 DAILY Medical Branch VERAPAMIL 2022-0 Yes [id number] 240mg TAKE 1 [facility] 240 mg 24 8-29 CAPSULE BY [facility] of hr capsule 00:00: MOUTH DAILY Medical Branch VERAPAMIL 2022-0 Yes [id number] 240mg TAKE 1 [facility] 240 mg 24 8-29 CAPSULE BY [facility] of hr capsule 00:00: MOUTH DAILY Medical Branch VERAPAMIL 2022-0 Yes [id number] 240mg TAKE 1 [facility] 240 mg 24 8-29 CAPSULE BY [facility] of hr capsule 00:00: MOUTH DAILY Medical Branch VERAPAMIL 2022-0 Yes [id number] 240mg TAKE 1 [facility] 240 mg 24 8-29 CAPSULE BY [facility] of hr capsule 00:00: MOUTH DAILY Medical Branch VERAPAMIL 2022-0 Yes [id number] 240mg TAKE 1 [facility] 240 mg 24 8-29 CAPSULE BY [facility] of hr capsule 00:00: MOUTH DAILY Medical Branch VERAPAMIL 2022-0 Yes [id number] 240mg TAKE 1 [facility] 240 mg 24 8-29 CAPSULE BY [facility] of hr capsule 00:00: MOUTH DAILY Medical Branch VERAPAMIL 2022-0 Yes [id number] 240mg TAKE 1 [facility] 240 mg 24 8-29 CAPSULE BY [facility] of hr capsule 00:00: MOUTH DAILY Medical Branch VERAPAMIL 2022-0 Yes [id number] 240mg TAKE 1 [facility] 240 mg 24 8-29 CAPSULE BY [facility] of hr capsule 00:00: MOUTH DAILY Medical Branch VERAPAMIL 2022-0 Yes [id number] 240mg TAKE 1 [facility] 240 mg 24 8-29 CAPSULE BY [facility] of hr capsule 00:00: MOUTH DAILY Medical Branch VERAPAMIL 2022-0 Yes [id number] 240mg TAKE 1 [facility] 240 mg 24 8-29 CAPSULE BY [facility] of hr capsule 00:00: MOUTH DAILY Medical Branch VERAPAMIL 2022-0 Yes [id number] 240mg TAKE 1 [facility] 240 mg 24 8-29 CAPSULE BY [facility] of hr capsule 00:00: MOUTH DAILY Medical Branch VERAPAMIL 2022-0 Yes [id number] 240mg TAKE 1 [facility] 240 mg 24 8-29 CAPSULE BY [facility] of hr capsule 00:00: MOUTH DAILY Medical Branch VERAPAMIL 2022-0 Yes [id number] 240mg TAKE 1 [facility] 240 mg 24 8-29 CAPSULE BY [facility] of hr capsule 00:00: MOUTH DAILY Medical Branch VERAPAMIL 2022-0 Yes [id number] 240mg TAKE 1 [facility] 240 mg 24 8-29 CAPSULE BY [facility] of hr capsule 00:00: MOUTH DAILY Medical Branch VERAPAMIL 2022-0 Yes [id number] 240mg TAKE 1 [facility] 240 mg 24 8-29 CAPSULE BY [facility] of hr capsule 00:00: MOUTH 00 DAILY Medical Branch VERAPAMIL 2022-0 Yes [id number] 240mg TAKE 1 [facility] 240 mg 24 8-29 CAPSULE BY [facility] of hr capsule 00:00: MOUTH 00 DAILY Medical Branch VERAPAMIL 2022-0 Yes [id number] 240mg TAKE 1 [facility] 240 mg 24 8-29 CAPSULE BY [facility] of hr capsule 00:00: MOUTH DAILY Medical Branch VERAPAMIL 2022-0 Yes [id number] 240mg TAKE 1 [facility] 240 mg 24 8-29 CAPSULE BY [facility] of hr capsule 00:00: MOUTH 00 DAILY Medical Branch VERAPAMIL 2022-0 Yes [id number] 240mg TAKE 1 [facility] 240 mg 24 8-29 CAPSULE BY [facility] of hr capsule 00:00: MOUTH DAILY Medical Branch VERAPAMIL 2022-0 Yes [id number] 240mg TAKE 1 [facility] 240 mg 24 8-29 CAPSULE BY [facility] of hr capsule 00:00: MOUTH DAILY Medical Branch VERAPAMIL 2022-0 Yes [id number] 240mg TAKE 1 [facility] 240 mg 24 8-29 CAPSULE BY [facility] of hr capsule 00:00: MOUTH DAILY Medical Branch VERAPAMIL 2022-0 Yes [id number] 240mg TAKE 1 [facility] 240 mg 24 8-29 CAPSULE BY [facility] of hr capsule 00:00: MOUTH DAILY Medical Branch VERAPAMIL 2022-0 Yes [id number] 240mg TAKE 1 [facility] 240 mg 24 8-29 CAPSULE BY [facility] of hr capsule 00:00: MOUTH DAILY Medical Branch VERAPAMIL 2022-0 Yes [id number] 240mg TAKE 1 [facility] 240 mg 24 8-29 CAPSULE BY [facility] of hr capsule 00:00: MOUTH DAILY Medical Branch VERAPAMIL 2022-0 Yes [id number] 240mg TAKE 1 [facility] 240 mg 24 8-29 CAPSULE BY [facility] of hr capsule 00:00: MOUTH DAILY Medical Branch VERAPAMIL 2022-0 2- No [id number] 240mg TAKE 1 [facility] 240 mg 24 8-29 - CAPSULE BY [facility] of hr capsule 00:00: 00:00 MOUTH [place] 00 :00 DAILY Medical Branch VERAPAMIL 2022-0 2- No [id number] 240mg TAKE 1 [facility] 240 mg 24 8-29 - CAPSULE BY it[facility] of hr capsule 00:00: 00:00 MOUTH [place] 00 :00 DAILY Medical Branch VERAPAMIL 2021-0 2021- No [id number] 240mg TAKE 1 [facility] 240 mg 24 03-31 CAPSULE BY it[facility] of hr capsule 00:00: 00:00 MOUTH [place] 00 :00 DAILY Medical Branch ALBUTEROL Yes [id number] INHALE 2 [facility] 90 8-24 PUFFS BY ity of mcg/actuati 00:00: MOUTH [place] on inhaler 00 EVERY 6 Medica l HOURS Branch NEEDED FOR WHEEZING, SHORTNESS OF BREATH OR BRONCHOSPA SMS ALBUTEROL Yes [id number] INHALE 2 [facility] 90 8-24 PUFFS BY ity of mcg/actuati 00:00: MOUTH [place] on inhaler 00 EVERY 6 Medica l HOURS Branch NEEDED FOR WHEEZING, SHORTNESS OF BREATH OR BRONCHOSPA SMS ALBUTEROL Yes [id number] INHALE 2 [facility] 90 8-24 PUFFS BY ity of mcg/actuati 00:00: MOUTH [place] on inhaler 00 EVERY 6 Medica l HOURS Branch NEEDED FOR WHEEZING, SHORTNESS OF BREATH OR BRONCHOSPA SMS ALBUTEROL Yes [id number] INHALE 2 [facility] 90 8-24 PUFFS BY ity of mcg/actuati 00:00: MOUTH [place] on inhaler 00 EVERY 6 Medica l HOURS Branch NEEDED FOR WHEEZING, SHORTNESS OF BREATH OR BRONCHOSPA SMS ALBUTEROL Yes [id number] INHALE 2 [facility] 90 8-24 PUFFS BY ity of mcg/actuati 00:00: MOUTH [place] on inhaler 00 EVERY 6 Medica l HOURS Branch NEEDED FOR WHEEZING, SHORTNESS OF BREATH OR BRONCHOSPA SMS ALBUTEROL Yes [id number] INHALE 2 [facility] 90 8-24 PUFFS BY ity of mcg/actuati 00:00: MOUTH [place] on inhaler 00 EVERY 6 Medica l HOURS Branch NEEDED FOR WHEEZING, SHORTNESS OF BREATH OR BRONCHOSPA SMS ALBUTEROL Yes [id number] INHALE 2 [facility] 90 8-24 PUFFS BY ity of mcg/actuati 00:00: MOUTH [place] on inhaler 00 EVERY 6 Medica l HOURS Branch NEEDED FOR WHEEZING, SHORTNESS OF BREATH OR BRONCHOSPA SMS ALBUTEROL Yes [id number] INHALE 2 [facility] 90 8-24 PUFFS BY ity of mcg/actuati 00:00: MOUTH [place] on inhaler 00 EVERY 6 Medica l HOURS Branch NEEDED FOR WHEEZING, SHORTNESS OF BREATH OR BRONCHOSPA SMS ALBUTEROL Yes [id number] INHALE 2 [facility] 90 8-24 PUFFS BY ity of mcg/actuati 00:00: MOUTH [place] on inhaler 00 EVERY 6 Medica l HOURS Branch NEEDED FOR WHEEZING, SHORTNESS OF BREATH OR BRONCHOSPA SMS ALBUTEROL Yes [id number] INHALE 2 [facility] 90 8-24 PUFFS BY ity of mcg/actuati 00:00: MOUTH [place] on inhaler 00 EVERY 6 Medica l HOURS Branch NEEDED FOR WHEEZING, SHORTNESS OF BREATH OR BRONCHOSPA SMS ALBUTEROL Yes [id number] INHALE 2 [facility] 90 8-24 PUFFS BY ity of mcg/actuati 00:00: MOUTH [place] on inhaler 00 EVERY 6 Medica l HOURS Branch NEEDED FOR WHEEZING, SHORTNESS OF BREATH OR BRONCHOSPA SMS ALBUTEROL Yes [id number] INHALE 2 [facility] 90 8-24 PUFFS BY ity of mcg/actuati 00:00: MOUTH [place] on inhaler 00 EVERY 6 Medica l HOURS Branch NEEDED FOR WHEEZING, SHORTNESS OF BREATH OR BRONCHOSPA SMS ALBUTEROL Yes [id number] INHALE 2 [facility] 90 8-24 PUFFS BY ity of mcg/actuati 00:00: MOUTH [place] on inhaler 00 EVERY 6 Medica l HOURS Branch NEEDED FOR WHEEZING, SHORTNESS OF BREATH OR BRONCHOSPA SMS ALBUTEROL Yes [id number] INHALE 2 [facility] 90 8-24 PUFFS BY ity of mcg/actuati 00:00: MOUTH [place] on inhaler 00 EVERY 6 Medica l HOURS Branch NEEDED FOR WHEEZING, SHORTNESS OF BREATH OR BRONCHOSPA SMS ALBUTEROL Yes [id number] INHALE 2 [facility] 90 8-24 PUFFS BY ity of mcg/actuati 00:00: MOUTH [place] on inhaler 00 EVERY 6 Medica l HOURS Branch NEEDED FOR WHEEZING, SHORTNESS OF BREATH OR BRONCHOSPA SMS ALBUTEROL 0 Yes [id number] INHALE 2 [facility] 90 8-24 PUFFS BY ity of mcg/actuati 00:00: MOUTH [place] on inhaler 00 EVERY 6 Medica l HOURS Branch NEEDED FOR WHEEZING, SHORTNESS OF BREATH OR BRONCHOSPA SMS ALBUTEROL Yes [id number] INHALE 2 [facility] 90 8-24 PUFFS BY ity of mcg/actuati 00:00: MOUTH [place] on inhaler 00 EVERY 6 Medica l HOURS Branch NEEDED FOR WHEEZING, SHORTNESS OF BREATH OR BRONCHOSPA SMS ALBUTEROL 2021- No [id number] INHALE 2 [facility] 90 8-24 10-21 PUFFS BY ity of mcg/actuati 00:00: 00:00 MOUTH [place] on inhaler 00 :00 EVERY 6 Medica l HOURS Branch NEEDED FOR WHEEZING, SHORTNESS OF BREATH OR BRONCHOSPA SMS ALBUTEROL 2021- No [id number] INHALE 2 [facility] 90 8-24 10-21 PUFFS BY ity of mcg/actuati 00:00: 00:00 MOUTH [place] on inhaler 00 :00 EVERY 6 Medica l HOURS Branch NEEDED FOR WHEEZING, SHORTNESS OF BREATH OR BRONCHOSPA SMS HYDROcodone Yes 2745 1{tbl} Take 1 [facility] -acetaminop 8-09 tablet by [facility] of hen 7.5-325 00:00: mouth [place] mg per 00 every 6 Medical tablet (six) Branch hours as needed for Pain. Indication s: chronic pain HYDROcodone Yes 2745 1{tbl} Take 1 [facility] -acetaminop 8-09 tablet by [facility] of hen 7.5-325 00:00: mouth [place] mg per 00 every 6 Medical tablet (six) Branch hours as needed for Pain. Indication s: chronic pain HYDROcodone Yes 2745 1{tbl} Take 1 [facility] -acetaminop 8-09 tablet by [facility] of hen 7.5-325 00:00: mouth [place] mg per 00 every 6 Medical tablet (six) Branch hours as needed for Pain. Indication s: chronic pain HYDROcodone Yes 2745 1{tbl} Take 1 [facility] -acetaminop 8-09 tablet by [facility] of hen 7.5-325 00:00: mouth [place] mg per 00 every 6 Medical tablet (six) Branch hours as needed for Pain. Indication s: chronic pain HYDROcodone 2021- No 2745 1{tbl} Take 1 [facility] -acetaminop 03-11- tablet by it y of hen 7.5-325 00:00: 00:00 mouth [place] mg per 00 :00 every 6 Medical tablet (six) Branch hours as needed for Pain. Indication s: chronic pain QUINAPRIL 2021-0 Yes [id number] 40mg TAKE 1 [facility] 40 mg 8-01 TABLET BY [facility] of tablet 00:00: MOUTH [place] 00 EVERY Medical MORNING Branch TIZANIDINE 2021-0 Yes [id number] TAKE 1 [facility] 4 mg tablet 8-01 TABLET BY [facility] of 00:00: MOUTH [place] 00 EVERY 8 Medical HOURS Branch NEEDED QUINAPRIL 2021-0 Yes [id number] 40mg TAKE 1 [facility] 40 mg 8-01 TABLET BY [facility] of tablet 00:00: MOUTH [place] 00 EVERY Medical MORNING Branch TIZANIDINE 2021-0 Yes [id number] TAKE 1 [facility] 4 mg tablet 8-01 TABLET BY [facility] of 00:00: MOUTH [place] 00 EVERY 8 Medical HOURS Branch NEEDED QUINAPRIL 2021-0 Yes [id number] 40mg TAKE 1 [facility] 40 mg 8-01 TABLET BY [facility] of tablet 00:00: MOUTH [place] 00 EVERY Medical MORNING Branch TIZANIDINE 2021-0 Yes [id number] TAKE 1 [facility] 4 mg tablet 8-01 TABLET BY [facility] of 00:00: MOUTH [place] 00 EVERY 8 Medical HOURS Branch NEEDED QUINAPRIL 2021-0 Yes [id number] 40mg TAKE 1 [facility] 40 mg 8-01 TABLET BY [facility] of tablet 00:00: MOUTH [place] 00 EVERY Medical MORNING Branch TIZANIDINE 2021-0 Yes [id number] TAKE 1 [facility] 4 mg tablet 8-01 TABLET BY [facility] of 00:00: MOUTH [place] 00 EVERY 8 Medical HOURS Branch NEEDED QUINAPRIL 2-0 Yes [id number] 40mg TAKE 1 [facility] 40 mg 8-01 TABLET BY [facility] of tablet 00:00: MOUTH [place] 00 EVERY Medical MORNING Branch TIZANIDINE 2021-0 Yes [id number] TAKE 1 [facility] 4 mg tablet 8-01 TABLET BY [facility] of 00:00: MOUTH [place] 00 EVERY 8 Medical HOURS Branch NEEDED QUINAPRIL 2-0 Yes [id number] 40mg TAKE 1 [facility] 40 mg 8-01 TABLET BY [facility] of tablet 00:00: MOUTH [place] 00 EVERY Medical MORNING Branch TIZANIDINE 2-0 Yes [id number] TAKE 1 [facility] 4 mg tablet 8-01 TABLET BY [facility] of 00:00: MOUTH EVERY 8 Medical HOURS Branch NEEDED QUINAPRIL 2022-0 Yes [id number] 40mg TAKE 1 [facility] 40 mg 8-01 TABLET BY [facility] of tablet 00:00: MOUTH EVERY Medical MORNING Branch TIZANIDINE 2-0 Yes [id number] TAKE 1 [facility] 4 mg tablet 8-01 TABLET BY [facility] of 00:00: MOUTH 00 EVERY 8 Medical HOURS Branch NEEDED QUINAPRIL 2022-0 Yes [id number] 40mg TAKE 1 [facility] 40 mg 8-01 TABLET BY [facility] of tablet 00:00: MOUTH EVERY Medical MORNING Branch TIZANIDINE 2-0 Yes [id number] TAKE 1 [facility] 4 mg tablet 8-01 TABLET BY [facility] of 00:00: MOUTH EVERY 8 Medical HOURS Branch NEEDED QUINAPRIL 2022-0 Yes [id number] 40mg TAKE 1 [facility] 40 mg 8-01 TABLET BY [facility] of tablet 00:00: MOUTH 00 EVERY Medical MORNING Branch TIZANIDINE 2-0 Yes [id number] TAKE 1 [facility] 4 mg tablet 8-01 TABLET BY [facility] of 00:00: MOUTH EVERY 8 Medical HOURS Branch NEEDED QUINAPRIL 2022-0 Yes [id number] 40mg TAKE 1 [facility] 40 mg 8-01 TABLET BY [facility] of tablet 00:00: MOUTH 00 EVERY Medical MORNING Branch TIZANIDINE 2-0 Yes [id number] TAKE 1 [facility] 4 mg tablet 8-01 TABLET BY [facility] of 00:00: MOUTH EVERY 8 Medical HOURS Branch NEEDED QUINAPRIL 2022-0 Yes [id number] 40mg TAKE 1 [facility] 40 mg 8-01 TABLET BY [facility] of tablet 00:00: MOUTH 00 EVERY Medical MORNING Branch TIZANIDINE 2022-0 Yes [id number] TAKE 1 [facility] 4 mg tablet 8-01 TABLET BY [facility] of 00:00: MOUTH 00 EVERY 8 Medical HOURS Branch NEEDED QUINAPRIL 2022-0 Yes [id number] 40mg TAKE 1 [facility] 40 mg 8-01 TABLET BY [facility] of tablet 00:00: MOUTH 00 EVERY Medical MORNING Branch TIZANIDINE 2-0 Yes [id number] TAKE 1 [facility] 4 mg tablet 8-01 TABLET BY [facility] of 00:00: MOUTH [place] 00 EVERY 8 Medical HOURS Branch NEEDED QUINAPRIL 2022-0 Yes [id number] 40mg TAKE 1 [facility] 40 mg 8-01 TABLET BY [facility] of tablet 00:00: MOUTH [place] 00 EVERY Medical MORNING Branch TIZANIDINE 2022-0 Yes [id number] TAKE 1 [facility] 4 mg tablet 8-01 TABLET BY [facility] of 00:00: MOUTH [place] 00 EVERY 8 Medical HOURS Branch NEEDED QUINAPRIL 2022-0 Yes [id number] 40mg TAKE 1 [facility] 40 mg 8-01 TABLET BY [facility] of tablet 00:00: MOUTH [place] 00 EVERY Medical MORNING Branch TIZANIDINE 2-0 Yes [id number] TAKE 1 [facility] 4 mg tablet 8-01 TABLET BY [facility] of 00:00: MOUTH [place] 00 EVERY 8 Medical HOURS Branch NEEDED QUINAPRIL 2022-0 Yes [id number] 40mg TAKE 1 [facility] 40 mg 8-01 TABLET BY [facility] of tablet 00:00: MOUTH [place] 00 EVERY Medical MORNING Branch TIZANIDINE 2-0 Yes [id number] TAKE 1 [facility] 4 mg tablet 8-01 TABLET BY [facility] of 00:00: MOUTH [place] 00 EVERY 8 Medical HOURS Branch NEEDED QUINAPRIL 2-0 Yes [id number] 40mg TAKE 1 [facility] 40 mg 8-01 TABLET BY [facility] of tablet 00:00: MOUTH [place] 00 EVERY Medical MORNING Branch TIZANIDINE 2022-0 Yes [id number] TAKE 1 [facility] 4 mg tablet 8-01 TABLET BY [facility] of 00:00: MOUTH [place] 00 EVERY 8 Medical HOURS Branch NEEDED QUINAPRIL 2022-0 Yes [id number] 40mg TAKE 1 [facility] 40 mg 8-01 TABLET BY [facility] of tablet 00:00: MOUTH [place] 00 EVERY Medical MORNING Branch TIZANIDINE 2-0 Yes [id number] TAKE 1 [facility] 4 mg tablet 8-01 TABLET BY [facility] of 00:00: MOUTH [place] 00 EVERY 8 Medical HOURS Branch NEEDED QUINAPRIL 2022-0 Yes [id number] 40mg TAKE 1 [facility] 40 mg 8-01 TABLET BY [facility] of tablet 00:00: MOUTH [place] 00 EVERY Medical MORNING Branch TIZANIDINE 2-0 Yes [id number] TAKE 1 [facility] 4 mg tablet 8-01 TABLET BY [facility] of 00:00: MOUTH [place] 00 EVERY 8 Medical HOURS Branch NEEDED QUINAPRIL 2-0 Yes [id number] 40mg TAKE 1 [facility] 40 mg 8-01 TABLET BY [facility] of tablet 00:00: MOUTH [place] 00 EVERY Medical MORNING Branch TIZANIDINE 2021-0 Yes [id number] TAKE 1 [facility] 4 mg tablet 8-01 TABLET BY [facility] of 00:00: MOUTH [place] 00 EVERY 8 Medical HOURS Branch NEEDED TIZANIDINE 2-0 Yes [id number] TAKE 1 [facility] 4 mg tablet 8-01 TABLET BY [facility] of 00:00: MOUTH [place] 00 EVERY 8 Medical HOURS Branch NEEDED TIZANIDINE 2021-0 Yes [id number] TAKE 1 [facility] 4 mg tablet 8-01 TABLET BY it[facility] of 00:00: MOUTH [place] 00 EVERY 8 Medical HOURS Branch NEEDED TIZANIDINE 2021-0 Yes [id number] TAKE 1 [facility] 4 mg tablet 8-01 TABLET BY [facility] of 00:00: MOUTH [place] 00 EVERY 8 Medical HOURS Branch NEEDED TIZANIDINE 2021-0 Yes [id number] TAKE 1 [facility] 4 mg tablet 8-01 TABLET BY it[facility] of 00:00: MOUTH [place] 00 EVERY 8 Medical HOURS Branch NEEDED TIZANIDINE 2-0 2- No [id number] TAKE 1 [facility] 4 mg tablet 8-01 10-24 TABLET BY it y of 00:00: 00:00 MOUTH [place] 00 :00 EVERY 8 Medical HOURS Branch NEEDED QUINAPRIL 2-0 2- No [id number] 40mg TAKE 1 [facility] 40 mg 8-01 10-21 TABLET BY [facility] of tablet 00:00: 00:00 MOUTH [place] 00 :00 EVERY Medical MORNING Branch glipiZIDE 2-0 Yes [id number] 5mg TAKE 1 [facility] XL 5 mg 24 7-28 TABLET BY [facility] of hr tablet 00:00: MOUTH [place] 00 DAILY WITH Medical BREAKFAST Branch glipiZIDE 2-0 Yes [id number] 5mg TAKE 1 [facility] XL 5 mg 24 7-28 TABLET BY [facility] of hr tablet 00:00: MOUTH [place] 00 DAILY WITH Medical BREAKFAST Branch glipiZIDE 2-0 Yes [id number] 5mg TAKE 1 [facility] XL 5 mg 24 7-28 TABLET BY [facility] of hr tablet 00:00: MOUTH [place] 00 DAILY WITH Medical BREAKFAST Branch glipiZIDE 2021-0 Yes [id number] 5mg TAKE 1 [facility] XL 5 mg 24 7-28 TABLET BY [facility] of hr tablet 00:00: MOUTH 00 DAILY WITH Medical BREAKFAST Branch glipiZIDE 2021-0 Yes [id number] 5mg TAKE 1 [facility] XL 5 mg 24 7-28 TABLET BY [facility] of hr tablet 00:00: MOUTH 00 DAILY WITH Medical BREAKFAST Branch glipiZIDE 2021-0 Yes [id number] 5mg TAKE 1 [facility] XL 5 mg 24 7-28 TABLET BY [facility] of hr tablet 00:00: MOUTH 00 DAILY WITH Medical BREAKFAST Branch glipiZIDE 2021-0 Yes [id number] 5mg TAKE 1 [facility] XL 5 mg 24 7-28 TABLET BY [facility] of hr tablet 00:00: MOUTH DAILY WITH Medical BREAKFAST Branch glipiZIDE 2021-0 Yes [id number] 5mg TAKE 1 [facility] XL 5 mg 24 7-28 TABLET BY [facility] of hr tablet 00:00: MOUTH DAILY WITH Medical BREAKFAST Branch glipiZIDE 2021-0 Yes [id number] 5mg TAKE 1 [facility] XL 5 mg 24 7-28 TABLET BY [facility] of hr tablet 00:00: MOUTH 00 DAILY WITH Medical BREAKFAST Branch glipiZIDE 2021-0 Yes [id number] 5mg TAKE 1 [facility] XL 5 mg 24 7-28 TABLET BY [facility] of hr tablet 00:00: MOUTH 00 DAILY WITH Medical BREAKFAST Branch glipiZIDE 2021-0 Yes [id number] 5mg TAKE 1 [facility] XL 5 mg 24 7-28 TABLET BY it[facility] of hr tablet 00:00: MOUTH DAILY WITH Medical BREAKFAST Branch glipiZIDE 2021-0 Yes [id number] 5mg TAKE 1 [facility] XL 5 mg 24 7-28 TABLET BY [facility] of hr tablet 00:00: MOUTH 00 DAILY WITH Medical BREAKFAST Branch glipiZIDE 2021-0 Yes [id number] 5mg TAKE 1 [facility] XL 5 mg 24 7-28 TABLET BY [facility] of hr tablet 00:00: MOUTH 00 DAILY WITH Medical BREAKFAST Branch glipiZIDE 2021-0 Yes [id number] 5mg TAKE 1 [facility] XL 5 mg 24 7-28 TABLET BY [facility] of hr tablet 00:00: MOUTH 00 DAILY WITH Medical BREAKFAST Branch glipiZIDE 2022-0 Yes [id number] 5mg TAKE 1 [facility] XL 5 mg 24 7-28 TABLET BY [facility] of hr tablet 00:00: MOUTH [place] 00 DAILY WITH Medical BREAKFAST Branch glipiZIDE Yes [id number] 5mg TAKE 1 [facility] XL 5 mg 24 7-28 TABLET BY [facility] of hr tablet 00:00: MOUTH [place] 00 DAILY WITH Medical BREAKFAST Branch glipiZIDE Yes [id number] 5mg TAKE 1 [facility] XL 5 mg 24 7-28 TABLET BY it[facility] of hr tablet 00:00: MOUTH [place] 00 DAILY WITH Medical BREAKFAST Branch glipiZIDE Yes [id number] 5mg TAKE 1 [facility] XL 5 mg 24 7-28 TABLET BY it[facility] of hr tablet 00:00: MOUTH [place] 00 DAILY WITH Medical [facility] Branch glipiZIDE Yes [id number] 5mg TAKE 1 [facility] XL 5 mg 24 7-28 TABLET BY ity of hr tablet 00:00: MOUTH [place] 00 DAILY WITH [facility] Branch glipiZIDE Yes [id number] 5mg TAKE 1 U nivers XL 5 mg 24 7-28 TABLET BY ity of hr tablet 00:00: MOUTH [place] 00 DAILY WITH [facility] Branch glipiZIDE 2021- No [id number] 5mg TAKE 1 [facility] XL 5 mg 24 7-28 10-21 TABLET BY ity of hr tablet 00:00: 00:00 MOUTH [place] 00 :00 DAILY WITH [facility] BREAKFAST Branch glipiZIDE 2021-0 2- No [id number] 5mg TAKE 1 [facility] XL 5 mg 24 7-28 10-21 TABLET BY ity of hr tablet 00:00: 00:00 MOUTH [place] 00 :00 DAILY WITH Medical BREAKFAST Branch glipiZIDE 2021-0 2021- No [id number] 5mg TAKE 1 [facility] XL 5 mg 24 7-28 10-21 TABLET BY ity of hr tablet 00:00: 00:00 MOUTH [place] 00 :00 DAILY WITH Medical BREAKFAST Branch glipiZIDE 2021-0 2021- No [id number] 5mg TAKE 1 [facility] XL 5 mg 24 7-28 10-21 TABLET BY ity of hr tablet 00:00: 00:00 MOUTH [place] 00 :00 DAILY WITH [facility] BREAKFAST Branch clonazePAM Yes [id number] 1mg Take 1 U nivers 1 mg tablet 7-25 tablet by ity of 00:00: mouth in [place] 00 the Medical morning Branch and 1 tablet at noon and 1 tablet in the evening. clonazePAM 2-0 Yes [id number] 1mg Take 1 U nivers 1 mg tablet 7-25 tablet by ity of 00:00: mouth in [place] 00 the Medical morning Branch and 1 tablet at noon and 1 tablet in the evening. clonazePAM 2-0 Yes [id number] 1mg Take 1 U nivers 1 mg tablet 7-25 tablet by ity of 00:00: mouth in [place] 00 the Medical morning Branch and 1 tablet at noon and 1 tablet in the evening. clonazePAM 2-0 Yes [id number] 1mg Take 1 U nivers 1 mg tablet 7-25 tablet by ity of 00:00: mouth in [place] 00 the Medical morning Branch and 1 tablet at noon and 1 tablet in the evening. clonazePAM 2021-0 Yes [id number] 1mg Take 1 U nivers 1 mg tablet 7-25 tablet by ity of 00:00: mouth in [place] 00 the Medical morning Branch and 1 tablet at noon and 1 tablet in the evening. clonazePAM 2021-0 Yes [id number] 1mg Take 1 U nivers 1 mg tablet 7-25 tablet by ity of 00:00: mouth in [place] 00 the Medical morning Branch and 1 tablet at noon and 1 tablet in the evening. clonazePAM 2021-0 2022- No [id number] 1mg Take 1 [facility] 1 mg tablet 7-25 09-26 tablet by it y of 00:00: 00:00 mouth in [place] 00 :00 the Medical morning Branch and 1 tablet at noon and 1 tablet in the evening. nirmatrelvi 2021-0 Yes [id number] 3{tbl} Take 3 Univers r-ritonavir 7-13 tablets by it y of (PAXLOVID, 00:00: mouth in [place] EUA,) 150 00 the Medical mg x 2- 100 morning Branc h mg tablet and 3 tablets in the evening. nirmatrelvi 2021-0 Yes [id number] 3{tbl} Take 3 [facility] r-ritonavir 7-13 tablets by it y of (PAXLOVID, 00:00: mouth in [place] as EUA,) 150 00 the Medical mg x 2- 100 morning Branc h mg tablet and 3 tablets in the evening. nirmatrelvi 2021-0 Yes [id number] 3{tbl} Take 3 [facility] r-ritonavir 7-13 tablets by it y of (PAXLOVID, 00:00: mouth in [place] EUA,) 150 00 the Medical mg x 2- 100 morning Branc h mg tablet and 3 tablets in the evening. nirmatrelvi 2021-0 Yes [id number] 3{tbl} Take 3 [facility] r-ritonavir 7-13 tablets by it y of (PAXLOVID, 00:00: mouth in [place] as EUA,) 150 00 the Medical mg x 2- 100 morning Branc h mg tablet and 3 tablets in the evening. nirmatrelvi 2021-0 Yes [id number] 3{tbl} Take 3 [facility] r-ritonavir 7-13 tablets by it y of (PAXLOVID, 00:00: mouth in [place] as EUA,) 150 00 the Medical mg x 2- 100 morning Branc h mg tablet and 3 tablets in the evening. nirmatrelvi 0 Yes [id number] 3{tbl} Take 3 [facility] r-ritonavir 7-13 tablets by it y of (PAXLOVID, 00:00: mouth in [place] EUA,) 150 00 the Medical mg x 2- 100 morning Branc h mg tablet and 3 tablets in the evening. nirmatrelvi 2021-0 Yes [id number] 3{tbl} Take 3 [facility] r-ritonavir 7-13 tablets by it y of (PAXLOVID, 00:00: mouth in [place] as EUA,) 150 00 the Medical mg x 2- 100 morning Branc h mg tablet and 3 tablets in the evening. nirmatrelvi 2021-0 Yes [id number] 3{tbl} Take 3 Univers r-ritonavir 7-13 tablets by it y of (PAXLOVID, 00:00: mouth in [place] as EUA,) 150 00 the Medical mg x 2- 100 morning Branc h mg tablet and 3 tablets in the evening. nirmatrelvi 2021-0 Yes [id number] 3{tbl} Take 3 Univers r-ritonavir 7-13 tablets by it y of (PAXLOVID, 00:00: mouth in [place] as EUA,) 150 00 the Medical mg x 2- 100 morning Branc h mg tablet and 3 tablets in the evening. nirmatrelvi 2021-0 Yes [id number] 3{tbl} Take 3 [facility] r-ritonavir 7-13 tablets by it y of (PAXLOVID, 00:00: mouth in [place] EUA,) 150 00 the Medical mg x 2- 100 morning Branc h mg tablet and 3 tablets in the evening. nirmatrelvi 0 Yes [id number] 3{tbl} Take 3 [facility] r-ritonavir 7-13 tablets by it y of (PAXLOVID, 00:00: mouth in [place] EUA,) 150 00 the Medical mg x 2- 100 morning Branc h mg tablet and 3 tablets in the evening. nirmatrelvi 0 Yes [id number] 3{tbl} Take 3 [facility] r-ritonavir 7-13 tablets by it y of (PAXLOVID, 00:00: mouth in [place] EUA,) 150 00 the Medical mg x 2- 100 morning Branc h mg tablet and 3 tablets in the evening. nirmatrelvi 0 Yes [id number] 3{tbl} Take 3 [facility] r-ritonavir 7-13 tablets by it y of (PAXLOVID, 00:00: mouth in [place] as EUA,) 150 00 the Medical mg x 2- 100 morning Branc h mg tablet and 3 tablets in the evening. nirmatrelvi 0 Yes [id number] 3{tbl} Take 3 [facility] r-ritonavir 7-13 tablets by it y of (PAXLOVID, 00:00: mouth in [place] as EUA,) 150 00 the Medical mg x 2- 100 morning Branc h mg tablet and 3 tablets in the evening. nirmatrelvi 0 Yes [id number] 3{tbl} Take 3 [facility] r-ritonavir 7-13 tablets by it y of (PAXLOVID, 00:00: mouth in [place] as EUA,) 150 00 the Medical mg x 2- 100 morning Branc h mg tablet and 3 tablets in the evening. nirmatrelvi 2022-0 Yes [id number] 3{tbl} Take 3 [facility] r-ritonavir 7-13 tablets by it y of (PAXLOVID, 00:00: mouth in [place] as EUA,) 150 00 the Medical mg x 2- 100 morning Branc h mg tablet and 3 tablets in the evening. nirkytrelvi Yes [id number] 3{tbl} Take 3 [facility] r-ritonavir 7-13 tablets by it y of (PAXLOVID, 00:00: mouth in [place] as EUA,) 150 00 the Medical mg x 2- 100 morning Branc h mg tablet and 3 tablets in the evening. nirkytrelvi Yes [id number] 3{tbl} Take 3 [facility] r-ritonavir 7-13 tablets by it y of (PAXLOVID, 00:00: mouth in [place] as EUA,) 150 00 the Medical mg x 2- 100 morning Branc h mg tablet and 3 tablets in the evening. [facility] Yes [id number] 3{tbl} Take 3 [facility] r-ritonavir 7-13 tablets by it y of (PAXLOVID, 00:00: mouth in [place] as EUA,) 150 00 the Medical mg x 2- 100 morning Branc h mg tablet and 3 tablets in the evening[facility] Yes [id number] 3{tbl} Take 3 [facility] r-ritonavir 7-13 tablets by it y of (PAXLOVID, 00:00: mouth in [place] as EUA,) 150 00 the Medical mg x 2- 100 morning Branc h mg tablet and 3 tablets in the evening. [facility] 2021- No [id number] 3{tbl} Take 3 [facility] r-ritonavir 7-13 10-21 tablets by i ty of (PAXLOVID, 00:00: 00:00 mouth in [place] EUA,) 150 00 :00 the Medical mg x 2- 100 morning Branc h mg tablet and 3 tablets in the evening. nirkytrelvi 2021- No [id number] 3{tbl} Take 3 [facility] r-ritonavir 7-13 10-21 tablets by i ty of (PAXLOVID, 00:00: 00:00 mouth [place] [facility] EUA,) 150 00 :00 the Medical mg x 2- 100 morning Branc h mg tablet and 3 tablets in the evening. nirmatrelvi 2021-0 2022- No [id number] 3{tbl} Take 3 [facility] r-ritonavir 7-13 10-21 tablets by i ty of (PAXLOVID, 00:00: 00:00 mouth in [place] EUA,) 150 00 :00 the Medical mg x 2- 100 morning Branc h mg tablet and 3 tablets in the evening. meloxicam 2021-0 Yes 7.5mg Take 1 Unive rs 7.5 mg 7-12 tablet by ity of tablet 00:00: mouth in [place] 00 the Medical morning. Branch meloxicam 2021-0 Yes 7.5mg Take 1 Unive rs 7.5 mg 7-12 tablet by ity of tablet 00:00: mouth in [place] 00 the Medical morning. Branch meloxicam 2021-0 Yes 7.5mg Take 1 Unive rs 7.5 mg 7-12 tablet by ity of tablet 00:00: mouth in [place] 00 the Medical morning. Branch meloxicam 2021-0 Yes 7.5mg Take 1 Unive rs 7.5 mg 7-12 tablet by ity of tablet 00:00: mouth in [place] 00 the Medical morning. Branch meloxicam 2021-0 Yes 7.5mg Take 1 Unive rs 7.5 mg 7-12 tablet by ity of tablet 00:00: mouth in [place] 00 the Medical morning. Branch meloxicam 2-0 Yes 7.5mg Take 1 Unive rs 7.5 mg 7-12 tablet by ity of tablet 00:00: mouth in [place] 00 the Medical morning. Branch meloxicam 2-0 Yes 7.5mg Take 1 Unive rs 7.5 mg 7-12 tablet by ity of tablet 00:00: mouth in [place] 00 the Medical morning. Branch meloxicam 2-0 Yes 7.5mg Take 1 Unive rs 7.5 mg 7-12 tablet by ity of tablet 00:00: mouth in [place] 00 the Medical morning. Branch meloxicam 2-0 Yes 7.5mg Take 1 Unive rs 7.5 mg 7-12 tablet by ity of tablet 00:00: mouth in [place] 00 the Medical morning. Branch meloxicam 2022-0 Yes 7.5mg Take 1 Unive rs 7.5 mg 7-12 tablet by ity of tablet 00:00: mouth in [place] the Medical morning. Branch meloxicam 2022-0 Yes 7.5mg Take 1 Unive rs 7.5 mg 7-12 tablet by ity of tablet 00:00: mouth in [place] 00 the Medical morning. Branch meloxicam 2022-0 Yes 7.5mg Take 1 Unive rs 7.5 mg 7-12 tablet by ity of tablet 00:00: mouth in [place] the Medical morning. Branch meloxicam 2022-0 Yes 7.5mg Take 1 Unive rs 7.5 mg 7-12 tablet by ity of tablet 00:00: mouth in [place] the Medical morning. Branch meloxicam 2022-0 Yes 7.5mg Take 1 Unive rs 7.5 mg 7-12 tablet by ity of tablet 00:00: mouth in [place] the Medical morning. Branch meloxicam 2022-0 Yes 7.5mg Take 1 Unive rs 7.5 mg 7-12 tablet by ity of tablet 00:00: mouth in [place] the Medical morning. Branch meloxicam 2022-0 Yes 7.5mg Take 1 Unive rs 7.5 mg 7-12 tablet by ity of tablet 00:00: mouth in [place] the Medical morning. Branch meloxicam 2022-0 Yes 7.5mg Take 1 Unive rs 7.5 mg 7-12 tablet by ity of tablet 00:00: mouth in [place] the Medical morning. Branch meloxicam 2022-0 Yes 7.5mg Take 1 Unive rs 7.5 mg 7-12 tablet by ity of tablet 00:00: mouth in [place] the Medical morning. Branch meloxicam 2022-0 Yes 7.5mg Take 1 Unive rs 7.5 mg 7-12 tablet by ity of tablet 00:00: mouth in [place] 00 the Medical morning. Branch meloxicam 2022-0 Yes 7.5mg Take 1 Unive rs 7.5 mg 7-12 tablet by ity of tablet 00:00: mouth in [place] 00 the Medical morning. Branch meloxicam 2022-0 Yes 7.5mg Take 1 Unive rs 7.5 mg 7-12 tablet by ity of tablet 00:00: mouth in [place] 00 the Medical morning. Branch meloxicam 2022-0 Yes 7.5mg Take 1 Unive rs 7.5 mg 7-12 tablet by ity of tablet 00:00: mouth in [place] the Medical morning. Branch meloxicam 2022-0 Yes 7.5mg Take 1 Unive rs 7.5 mg 7-12 tablet by ity of tablet 00:00: mouth in [place] the Medical morning. Branch meloxicam 2022-0 Yes 7.5mg Take 1 Unive rs 7.5 mg 7-12 tablet by ity of tablet 00:00: mouth in [place] the Medical morning. Branch meloxicam 2022-0 Yes 7.5mg Take 1 Unive rs 7.5 mg 7-12 tablet by ity of tablet 00:00: mouth in [place] the Medical morning. Branch meloxicam 2022-0 Yes 7.5mg Take 1 Unive rs 7.5 mg 7-12 tablet by ity of tablet 00:00: mouth in [place] the Medical morning. Branch meloxicam 2022-0 Yes 7.5mg Take 1 Unive rs 7.5 mg 7-12 tablet by ity of tablet 00:00: mouth in [place] the Medical morning. Branch meloxicam 2022-0 Yes 7.5mg Take 1 Unive rs 7.5 mg 7-12 tablet by ity of tablet 00:00: mouth in [place] the Medical morning. Branch meloxicam 2022-0 Yes 7.5mg Take 1 Unive rs 7.5 mg 7-12 tablet by ity of tablet 00:00: mouth in [place] the Medical morning. Branch meloxicam 2022-0 Yes 7.5mg Take 1 Unive rs 7.5 mg 7-12 tablet by ity of tablet 00:00: mouth in [place] the Medical morning. Branch meloxicam 2022-0 Yes 7.5mg Take 1 Unive rs 7.5 mg 7-12 tablet by ity of tablet 00:00: mouth in [place] 00 the Medical morning. Branch meloxicam 2022-0 Yes 7.5mg Take 1 Unive rs 7.5 mg 7-12 tablet by ity of tablet 00:00: mouth in [place] 00 the Medical morning. Branch meloxicam 2022-0 Yes 7.5mg Take 1 Unive rs 7.5 mg 7-12 tablet by ity of tablet 00:00: mouth in [place] the Medical morning. Branch meloxicam 2022-0 Yes 7.5mg Take 1 Unive rs 7.5 mg 7-12 tablet by ity of tablet 00:00: mouth in [place] the Medical morning. Branch meloxicam 2022-0 Yes 7.5mg Take 1 Unive rs 7.5 mg 7-12 tablet by ity of tablet 00:00: mouth in [place] the Medical morning. Branch meloxicam 2022-0 Yes 7.5mg Take 1 Unive rs 7.5 mg 7-12 tablet by ity of tablet 00:00: mouth in [place] the Medical morning. Branch meloxicam 2022-0 Yes 7.5mg Take 1 Unive rs 7.5 mg 7-12 tablet by ity of tablet 00:00: mouth in [place] the Medical morning. Branch meloxicam 2022-0 Yes 7.5mg Take 1 Unive rs 7.5 mg 7-12 tablet by ity of tablet 00:00: mouth in [place] the Medical morning. Branch meloxicam 2022-0 Yes 7.5mg Take 1 Unive rs 7.5 mg 7-12 tablet by ity of tablet 00:00: mouth in [place] the Medical morning. Branch meloxicam 2022-0 Yes 7.5mg Take 1 Unive rs 7.5 mg 7-12 tablet by ity of tablet 00:00: mouth in [place] the Medical morning. Branch meloxicam 2022-0 Yes 7.5mg Take 1 Unive rs 7.5 mg 7-12 tablet by ity of tablet 00:00: mouth in [place] 00 the Medical morning. Branch meloxicam 2022-0 Yes 7.5mg Take 1 Unive rs 7.5 mg 7-12 tablet by ity of tablet 00:00: mouth in [place] 00 the Medical morning. Branch meloxicam 2022-0 Yes 7.5mg Take 1 Unive rs 7.5 mg 7-12 tablet by ity of tablet 00:00: mouth in [place] 00 the Medical morning. Branch meloxicam 2022-0 Yes 7.5mg Take 1 Unive rs 7.5 mg 7-12 tablet by ity of tablet 00:00: mouth in [place] 00 the Medical morning. Branch meloxicam 2022-0 Yes 7.5mg Take 1 Unive rs 7.5 mg 7-12 tablet by ity of tablet 00:00: mouth in [place] 00 the Medical morning. Branch meloxicam 2022-0 Yes 7.5mg Take 1 Unive rs 7.5 mg 7-12 tablet by ity of tablet 00:00: mouth in [place] 00 the Medical morning. Branch meloxicam 2022-0 Yes 7.5mg Take 1 Unive rs 7.5 mg 7-12 tablet by ity of tablet 00:00: mouth in [place] the Medical morning. Branch meloxicam 2022-0 Yes 7.5mg Take 1 Unive rs 7.5 mg 7-12 tablet by ity of tablet 00:00: mouth in [place] the Medical morning. Branch meloxicam 2022-0 Yes 7.5mg Take 1 Unive rs 7.5 mg 7-12 tablet by ity of tablet 00:00: mouth in [place] the Medical morning. Branch meloxicam 2022-0 Yes 7.5mg Take 1 Unive rs 7.5 mg 7-12 tablet by ity of tablet 00:00: mouth in [place] the Medical morning. Branch meloxicam 2022-0 Yes 7.5mg Take 1 Un[facility] rs 7.5 mg 7-12 tablet by ity of tablet 00:00: mouth in [place] the Medical morning. Branch meloxicam 2022-0 Yes 7.5mg Take 1 Unive rs 7.5 mg 7-12 tablet by ity of tablet 00:00: mouth in [place] the Medical morning. Branch meloxicam 2022-0 Yes 7.5mg Take 1 Unive rs 7.5 mg 7-12 tablet by ity of tablet 00:00: mouth in [place] 00 the Medical morning. Branch meloxicam 2022-0 Yes 7.5mg Take 1 Unive rs 7.5 mg 7-12 tablet by ity of tablet 00:00: mouth in [place] 00 the Medical morning. Branch meloxicam 2022-0 Yes 7.5mg Take 1 Unive rs 7.5 mg 7-12 tablet by ity of tablet 00:00: mouth in [place] 00 the Medical morning. Branch meloxicam 2022-0 Yes 7.5mg Take 1 Unive rs 7.5 mg 7-12 tablet by ity of tablet 00:00: mouth in [place] 00 the Medical morning. Branch meloxicam 2022-0 Yes 7.5mg Take 1 Unive rs 7.5 mg 7-12 tablet by ity of tablet 00:00: mouth in [place] 00 the Medical morning. Branch meloxicam 2022-0 Yes 7.5mg Take 1 Unive rs 7.5 mg 7-12 tablet by ity of tablet 00:00: mouth in [place] 00 the Medical morning. Branch meloxicam 2022-0 Yes 7.5mg Take 1 Unive rs 7.5 mg 7-12 tablet by ity of tablet 00:00: mouth in [place] the Medical morning. Branch meloxicam 2022-0 Yes 7.5mg Take 1 Unive rs 7.5 mg 7-12 tablet by ity of tablet 00:00: mouth in [place] the Medical morning. Branch meloxicam 2022-0 Yes 7.5mg Take 1 Unive rs 7.5 mg 7-12 tablet by ity of tablet 00:00: mouth in [place] the Medical morning. Branch meloxicam 2022-0 Yes 7.5mg Take 1 Unive rs 7.5 mg 7-12 tablet by ity of tablet 00:00: mouth in [place] the Medical morning. Branch meloxicam 2022-0 Yes 7.5mg Take 1 Unive rs 7.5 mg 7-12 tablet by ity of tablet 00:00: mouth in [place] the Medical morning. Branch meloxicam 2022-0 Yes 7.5mg Take 1 Unive rs 7.5 mg 7-12 tablet by ity of tablet 00:00: mouth in [place] the Medical morning. Branch meloxicam 2022-0 Yes 7.5mg Take 1 Unive rs 7.5 mg 7-12 tablet by ity of tablet 00:00: mouth in [place] the Medical morning. Branch meloxicam 2022-0 Yes 7.5mg Take 1 Unive rs 7.5 mg 7-12 tablet by ity of tablet 00:00: mouth in [place] 00 the Medical morning. Branch meloxicam 2022-0 Yes 7.5mg Take 1 Unive rs 7.5 mg 7-12 tablet by ity of tablet 00:00: mouth in [place] 00 the Medical morning. Branch meloxicam Yes 7.5mg Take 1 Unive rs 7.5 mg 7-12 tablet by ity of tablet 00:00: mouth in [place] 00 the Medical morning. Branch meloxicam 2021-0 Yes 7.5mg Take 1 Unive rs 7.5 mg 7-12 tablet by ity of tablet 00:00: mouth in [place] 00 the Medical morning. Branch meloxicam 0 Yes 7.5mg Take 1 Unive rs 7.5 mg 7-12 tablet by ity of tablet 00:00: mouth in [place] 00 the Medical morning. Branch HYDROcodone 0 Yes [id number] 1{tbl} Take 1 [facility] -acetaminop 7-11 tablet by ity of hen 7.5-325 00:00: mouth [place] mg per 00 every 6 Medical tablet (six) Branch hours as needed for Pain. Indication s: chronic pain HYDROcodone 2021- No [id number] 1{tbl} Take 1 U nivers -acetaminop 7-11 08-09 tablet by it y of hen 7.5-325 00:00: 00:00 mouth [place] mg per 00 :00 every 6 Medical tablet (six) Branch hours as needed for Pain. Indication s: chronic pain albuterol Yes [id number] INHALE 2 [facility] 90 7-06 PUFFS BY ity of mcg/actuati 00:00: MOUTH [place] on inhaler 00 EVERY 6 Medica l HOURS Branch NEEDED FOR WHEEZING, SHORTNESS OF BREATH OR [facility] [place] chlorhexidi Yes [id number] 15mL [facility] and [facility] ne 0.12 % 7-06 spit out ity of mouthwash 00:00: 15 mL 2 [place] [address] (two) Medical times Branch daily. albuterol Yes [id number] INHALE 2 [facility] 90 7-06 PUFFS BY ity of mcg/actuati 00:00: MOUTH [place] on inhaler 00 EVERY 6 Medica l HOURS Branch NEEDED FOR WHEEZING, SHORTNESS OF BREATH OR BRONCHOSPA SMS chlorhexidi 0 Yes [id number] 15mL [facility] and [facility] ne 0.12 % 7-06 spit out ity of mouthwash 00:00: 15 mL 2 [place] 00 (two) Medical times Branch daily. chlorhexidi 2022-0 Yes [id number] 15mL [facility] and [facility] ne 0.12 % 7-06 spit out ity of mouthwash 00:00: 15 mL 2 [place] 00 (two) Medical times Branch daily. chlorhexidi 2022-0 Yes [id number] 15mL [facility] ne 0.12 % 7-06 spit out ity of mouthwash 00:00: 15 mL 2 [place] 00 (two) Medical times Branch daily. chlorhexidi 2022-0 Yes [id number] 15mL [facility] and [facility] ne 0.12 % 7-06 spit out ity of mouthwash 00:00: 15 mL 2 [place] 00 (two) Medical times Branch daily. chlorhexidi 2022-0 Yes [id number] 15mL [facility] ne 0.12 % 7-06 spit out ity of mouthwash 00:00: 15 mL 2 [place] 00 (two) Medical times Branch daily. chlorhexidi 2022-0 Yes [id number] 15mL [facility] ne 0.12 % 7-06 spit out ity of mouthwash 00:00: 15 mL 2 [place] 00 (two) Medical times Branch daily. chlorhexidi 2022-0 Yes [id number] 15mL [facility] ne 0.12 % 7-06 spit out ity of mouthwash 00:00: 15 mL 2 [place] 00 (two) Medical times Branch daily. chlorhexidi 2022-0 Yes [id number] 15mL [facility] ne 0.12 % 7-06 spit out ity of mouthwash 00:00: 15 mL 2 [place] 00 (two) Medical times Branch daily. chlorhexidi 2022-0 Yes [id number] 15mL [facility] ne 0.12 % 7-06 spit out ity of mouthwash 00:00: 15 mL 2 [place] 00 (two) Medical times Branch daily. chlorhexidi 2022-0 Yes [id number] 15mL [facility] ne 0.12 % 7-06 spit out ity of mouthwash 00:00: 15 mL 2 [place] 00 (two) Medical times Branch daily. chlorhexidi 2022-0 Yes [id number] 15mL [facility] and [facility] ne 0.12 % 7-06 spit out ity of mouthwash 00:00: 15 mL 2 [place] 00 (two) Medical times Branch daily. chlorhexidi 2022-0 Yes [id number] 15mL [facility] and [facility] ne 0.12 % 7-06 spit out ity of mouthwash 00:00: 15 mL 2 [place] 00 (two) Medical times Branch daily. chlorhexidi 2022-0 Yes [id number] 15mL [facility] ne 0.12 % 7-06 spit out ity of mouthwash 00:00: 15 mL 2 [place] 00 (two) Medical times Branch daily. chlorhexidi 2022-0 Yes [id number] 15mL [facility] ne 0.12 % 7-06 spit out ity of mouthwash 00:00: 15 mL 2 [place] 00 (two) Medical times Branch daily. chlorhexidi 2022-0 Yes [id number] 15mL [facility] and [facility] ne 0.12 % 7-06 spit out ity of mouthwash 00:00: 15 mL 2 [place] 00 (two) Medical times Branch daily. chlorhexidi 2022-0 Yes [id number] 15mL [facility] and [facility] ne 0.12 % 7-06 spit out ity of mouthwash 00:00: 15 mL 2 [place] 00 (two) Medical times Branch daily. chlorhexidi 2022-0 Yes [id number] 15mL [facility] and [facility] ne 0.12 % 7-06 spit out ity of mouthwash 00:00: 15 mL 2 [place] 00 (two) Medical times Branch daily. chlorhexidi 2022-0 Yes [id number] 15mL [facility] ne 0.12 % 7-06 spit out ity of mouthwash 00:00: 15 mL 2 [place] 00 (two) Medical times Branch daily. chlorhexidi 2022-0 Yes [id number] 15mL [facility] and [facility] ne 0.12 % 7-06 spit out ity of mouthwash 00:00: 15 mL 2 [place] 00 (two) Medical times Branch daily. chlorhexidi 2022-0 Yes [id number] 15mL [facility] ne 0.12 % 7-06 spit out ity of mouthwash 00:00: 15 mL 2 [place] 00 (two) Medical times Branch daily. chlorhexidi 2022-0 Yes [id number] 15mL [facility] and [facility] ne 0.12 % 7-06 spit out ity of mouthwash 00:00: 15 mL 2 [place] 00 (two) Medical times Branch daily. chlorhexidi 2022-0 Yes [id number] 15mL [facility] ne 0.12 % 7-06 spit out ity of mouthwash 00:00: 15 mL 2 [place] 00 (two) Medical times Branch daily. chlorhexidi 2022-0 Yes [id number] 15mL [facility] ne 0.12 % 7-06 spit out ity of mouthwash 00:00: 15 mL 2 [place] 00 (two) Medical times Branch daily. chlorhexidi 2022-0 Yes [id number] 15mL [facility] ne 0.12 % 7-06 spit out ity of mouthwash 00:00: 15 mL 2 [place] 00 (two) Medical times Branch daily. chlorhexidi 2022-0 Yes [id number] 15mL [facility] ne 0.12 % 7-06 spit out ity of mouthwash 00:00: 15 mL 2 [place] 00 (two) Medical times Branch daily. chlorhexidi 2022-0 Yes [id number] 15mL [facility] and [facility] ne 0.12 % 7-06 spit out ity of mouthwash 00:00: 15 mL 2 [place] 00 (two) Medical times Branch daily. chlorhexidi 2022-0 Yes [id number] 15mL [facility] ne 0.12 % 7-06 spit out ity of mouthwash 00:00: 15 mL 2 [place] 00 (two) Medical times Branch daily. chlorhexidi 2022-0 Yes [id number] 15mL [facility] ne 0.12 % 7-06 spit out ity of mouthwash 00:00: 15 mL 2 [place] 00 (two) Medical times Branch daily. chlorhexidi 2022-0 Yes [id number] 15mL [facility] and [facility] ne 0.12 % 7-06 spit out ity of mouthwash 00:00: 15 mL 2 [place] 00 (two) Medical times Branch daily. chlorhexidi 2022-0 Yes [id number] 15mL [facility] ne 0.12 % 7-06 spit out ity of mouthwash 00:00: 15 mL 2 [place] 00 (two) Medical times Branch daily. chlorhexidi 2022-0 Yes [id number] 15mL [facility] ne 0.12 % 7-06 spit out ity of mouthwash 00:00: 15 mL 2 [place] 00 (two) Medical times Branch daily. chlorhexidi 2022-0 Yes [id number] 15mL [facility] ne 0.12 % 7-06 spit out ity of mouthwash 00:00: 15 mL 2 [place] 00 (two) Medical times Branch daily. chlorhexidi 2022-0 Yes [id number] 15mL [facility] and [facility] ne 0.12 % 7-06 spit out ity of mouthwash 00:00: 15 mL 2 [place] 00 (two) Medical times Branch daily. chlorhexidi 2022-0 Yes [id number] 15mL [facility] and [facility] ne 0.12 % 7-06 spit out ity of mouthwash 00:00: 15 mL 2 [place] 00 (two) Medical times Branch daily. chlorhexidi 2022-0 Yes [id number] 15mL [facility] and [facility] ne 0.12 % 7-06 spit out ity of mouthwash 00:00: 15 mL 2 [place] 00 (two) Medical times Branch daily. chlorhexidi 2022-0 Yes [id number] 15mL [facility] ne 0.12 % 7-06 spit out ity of mouthwash 00:00: 15 mL 2 [place] 00 (two) Medical times Branch daily. chlorhexidi 2022-0 Yes [id number] 15mL [facility] ne 0.12 % 7-06 spit out ity of mouthwash 00:00: 15 mL 2 [place] 00 (two) Medical times Branch daily. chlorhexidi 2022-0 Yes [id number] 15mL [facility] ne 0.12 % 7-06 spit out ity of mouthwash 00:00: 15 mL 2 [place] 00 (two) Medical times Branch daily. chlorhexidi 2022-0 Yes [id number] 15mL [facility] ne 0.12 % 7-06 spit out ity of mouthwash 00:00: 15 mL 2 [place] 00 (two) Medical times Branch daily. chlorhexidi 2022-0 Yes [id number] 15mL [facility] ne 0.12 % 7-06 spit out ity of mouthwash 00:00: 15 mL 2 [place] 00 (two) Medical times Branch daily. chlorhexidi 2022-0 Yes [id number] 15mL [facility] ne 0.12 % 7-06 spit out ity of mouthwash 00:00: 15 mL 2 [place] 00 (two) Medical times Branch daily. chlorhexidi 2022-0 Yes [id number] 15mL [facility] ne 0.12 % 7-06 spit out ity of mouthwash 00:00: 15 mL 2 [place] 00 (two) Medical times Branch daily. chlorhexidi 2022-0 Yes [id number] 15mL [facility] ne 0.12 % 7-06 spit out ity of mouthwash 00:00: 15 mL 2 [place] 00 (two) Medical times Branch daily. chlorhexidi 2022-0 Yes [id number] 15mL [facility] ne 0.12 % 7-06 spit out ity of mouthwash 00:00: 15 mL 2 [place] 00 (two) Medical times Branch daily. chlorhexidi 2022-0 Yes [id number] 15mL [facility] ne 0.12 % 7-06 spit out ity of mouthwash 00:00: 15 mL 2 [place] 00 (two) Medical times Branch daily. chlorhexidi 2022-0 Yes [id number] 15mL [facility] ne 0.12 % 7-06 spit out ity of mouthwash 00:00: 15 mL 2 [place] 00 (two) Medical times Branch daily. chlorhexidi 2022-0 Yes [id number] 15mL [facility] ne 0.12 % 7-06 spit out ity of mouthwash 00:00: 15 mL 2 [place] 00 (two) Medical times Branch daily. chlorhexidi 2022-0 Yes [id number] 15mL [facility] ne 0.12 % 7-06 spit out ity of mouthwash 00:00: 15 mL 2 [place] 00 (two) Medical times Branch daily. chlorhexidi 2022-0 Yes [id number] 15mL [facility] ne 0.12 % 7-06 spit out ity of mouthwash 00:00: 15 mL 2 [place] 00 (two) Medical times Branch daily. chlorhexidi 2022-0 Yes [id number] 15mL [facility] ne 0.12 % 7-06 spit out ity of mouthwash 00:00: 15 mL 2 [place] 00 (two) Medical times Branch daily. chlorhexidi 2022-0 Yes [id number] 15mL [facility] ne 0.12 % 7-06 spit out ity of mouthwash 00:00: 15 mL 2 [place] 00 (two) Medical times Branch daily. chlorhexidi 2022-0 Yes [id number] 15mL [facility] ne 0.12 % 7-06 spit out ity of mouthwash 00:00: 15 mL 2 [place] 00 (two) Medical times Branch daily. chlorhexidi 2022-0 Yes [id number] 15mL [facility] ne 0.12 % 7-06 spit out ity of mouthwash 00:00: 15 mL 2 [place] 00 (two) Medical times Branch daily. chlorhexidi 2022-0 Yes [id number] 15mL [facility] ne 0.12 % 7-06 spit out ity of mouthwash 00:00: 15 mL 2 [place] 00 (two) Medical times Branch daily. chlorhexidi 2022-0 Yes [id number] 15mL [facility] ne 0.12 % 7-06 spit out ity of mouthwash 00:00: 15 mL 2 [place] 00 (two) Medical times Branch daily. chlorhexidi 2022-0 Yes [id number] 15mL [facility] ne 0.12 % 7-06 spit out ity of mouthwash 00:00: 15 mL 2 [place] 00 (two) Medical times Branch daily. chlorhexidi 2022-0 Yes [id number] 15mL [facility] ne 0.12 % 7-06 spit out ity of mouthwash 00:00: 15 mL 2 [place] 00 (two) Medical times Branch daily. chlorhexidi 2022-0 Yes [id number] 15mL [facility] ne 0.12 % 7-06 spit out ity of mouthwash 00:00: 15 mL 2 [place] 00 (two) Medical times Branch daily. chlorhexidi 2022-0 Yes [id number] 15mL [facility] ne 0.12 % 7-06 spit out ity of mouthwash 00:00: 15 mL 2 [place] 00 (two) Medical times Branch daily. chlorhexidi 2022-0 Yes [id number] 15mL [facility] ne 0.12 % 7-06 spit out ity of mouthwash 00:00: 15 mL 2 [place] 00 (two) Medical times Branch daily. chlorhexidi 2022-0 Yes [id number] 15mL [facility] ne 0.12 % 7-06 spit out ity of mouthwash 00:00: 15 mL 2 [place] 00 (two) Medical times Branch daily. chlorhexidi 2022-0 Yes [id number] 15mL [facility] ne 0.12 % 7-06 spit out ity of mouthwash 00:00: 15 mL 2 [place] 00 (two) Medical times Branch daily. chlorhexidi 2022-0 Yes [id number] 15mL [facility] ne 0.12 % 7-06 spit out ity of mouthwash 00:00: 15 mL 2 [place] 00 (two) Medical times Branch daily. chlorhexidi 2022-0 Yes [id number] 15mL [facility] ne 0.12 % 7-06 spit out ity of mouthwash 00:00: 15 mL 2 [place] 00 (two) Medical times Branch daily. chlorhexidi 2022-0 Yes [id number] 15mL [facility] ne 0.12 % 7-06 spit out ity of mouthwash 00:00: 15 mL 2 [place] 00 (two) Medical times Branch daily. chlorhexidi 2022-0 Yes [id number] 15mL [facility] ne 0.12 % 7-06 spit out ity of mouthwash 00:00: 15 mL 2 [place] 00 (two) Medical times Branch daily. chlorhexidi 2022-0 Yes [id number] 15mL [facility] ne 0.12 % 7-06 spit out ity of mouthwash 00:00: 15 mL 2 [place] 00 (two) Medical times Branch daily. chlorhexidi 2022-0 Yes [id number] 15mL [facility] ne 0.12 % 7-06 spit out ity of mouthwash 00:00: 15 mL 2 [place] 00 (two) Medical times Branch daily. chlorhexidi 2022-0 Yes [id number] 15mL [facility] ne 0.12 % 02-05 spit out ity of mouthwash 00:00: 15 mL 2 [place] 00 (two) Medical times Branch daily. albuterol 2021- No [id number] INHALE 2 [facility] 90 02-05 08-24 PUFFS BY ity of mcg/actuati 00:00: 00:00 MOUTH [place] inhaler 00 :00 EVERY 6 Medica l HOURS Branch NEEDED FOR WHEEZING, SHORTNESS OF BREATH OR BRONCHOSPA SMS Insulin Yes [id number] USE [facility], 02-02 DIRECTED ity of Disposable, 00:00: FOUR TIMES [place] (BD 00 DAILY. Dx Medical ULTRAFINE E11.9 Branch III MINI PEN) 31 gauge x 3/16" Ndle Insulin Yes [id number] USE [facility], 02-02 DIRECTED ity of Disposable, 00:00: FOUR TIMES [place] (BD 00 DAILY. Dx Medical ULTRAFINE E11.9 Branch III MINI PEN) 31 gauge x 3/16" Ndle Insulin Yes [id number] USE [facility], 02-02 DIRECTED ity of Disposable, 00:00: FOUR TIMES [place] (BD 00 DAILY. Dx Medical ULTRAFINE E11.9 Branch III MINI PEN) 31 gauge x 3/16" Ndle Insulin Yes [id number] USE [facility], 02-02 DIRECTED ity of Disposable, 00:00: FOUR TIMES [place] (BD 00 DAILY. Dx Medical ULTRAFINE E11.9 Branch III MINI PEN) 31 gauge x 3/16" Ndle Insulin Yes [id number] USE [facility], 02-02 DIRECTED ity of Disposable, 00:00: FOUR TIMES [place] (BD 00 DAILY. Dx Medical ULTRAFINE E11.9 Branch III MINI PEN) 31 gauge x 3/16" Ndle Insulin Yes [id number] USE [facility], 02-02 DIRECTED ity of Disposable, 00:00: FOUR TIMES [place] (BD 00 DAILY. Dx Medical ULTRAFINE E11.9 Branch III MINI PEN) 31 gauge x 3/16" Ndle Insulin Yes [id number] USE [facility], 02-02 DIRECTED ity of Disposable, 00:00: FOUR TIMES [place] (BD 00 DAILY. Dx Medical ULTRAFINE E11.9 Branch III MINI PEN) 31 gauge x 3/16" Ndle Insulin 2022-0 Yes [id number] USE [facility], 7 DIRECTED ity of Disposable, 00:00: FOUR TIMES [place] (BD 00 DAILY. Dx Medical ULTRAFINE E11.9 Branch III MINI PEN) 31 gauge x 3/16" Ndle Insulin 2022-0 Yes [id number] USE [facility], 7 DIRECTED ity of Disposable, 00:00: FOUR TIMES [place] (BD 00 DAILY. Dx Medical ULTRAFINE E11.9 Branch III MINI PEN) 31 gauge x 3/16" Ndle Insulin 2022-0 Yes [id number] USE [facility], 7 DIRECTED ity of Disposable, 00:00: FOUR TIMES [place] (BD 00 DAILY. Dx Medical ULTRAFINE E11.9 Branch III MINI PEN) 31 gauge x 3/16" Ndle Insulin 2022-0 Yes [id number] USE [facility], 7 DIRECTED ity of Disposable, 00:00: FOUR TIMES [place] (BD 00 DAILY. Dx Medical ULTRAFINE E11.9 Branch III MINI PEN) 31 gauge x 3/16" Ndle Insulin 2022-0 Yes [id number] USE [facility], 7 DIRECTED ity of Disposable, 00:00: FOUR TIMES [place] (BD 00 DAILY. Dx Medical ULTRAFINE E11.9 Branch III MINI PEN) 31 gauge x 3/16" Ndle Insulin 2022-0 Yes [id number] USE [facility], 7 DIRECTED ity of Disposable, 00:00: FOUR TIMES [place] (BD 00 DAILY. Dx Medical ULTRAFINE E11.9 Branch III MINI PEN) 31 gauge x 3/16" Ndle Insulin 2022-0 Yes [id number] USE [facility], 7 DIRECTED ity of Disposable, 00:00: FOUR TIMES [place] (BD 00 DAILY. Dx Medical ULTRAFINE E11.9 Branch III MINI PEN) 31 gauge x 3/16" Ndle Insulin 2022-0 Yes [id number] USE [facility], 7 DIRECTED ity of Disposable, 00:00: FOUR TIMES [place] (BD 00 DAILY. Dx Medical ULTRAFINE E11.9 Branch III MINI PEN) 31 gauge x 3/16" Ndle Insulin 2022-0 Yes [id number] USE [facility], 7-03 DIRECTED ity of Disposable, 00:00: FOUR TIMES [place] (BD 00 DAILY. Dx Medical ULTRAFINE E11.9 Branch III MINI PEN) 31 gauge x 3/16" Ndle Insulin 2022-0 Yes [id number] USE [facility], 02-02 DIRECTED ity of Disposable, 00:00: FOUR TIMES [place] (BD 00 DAILY. Dx Medical ULTRAFINE E11.9 Branch III MINI PEN) 31 gauge x 3/16" Ndle Insulin 2022-0 Yes [id number] USE [facility], 02-02 DIRECTED ity of Disposable, 00:00: FOUR TIMES [place] (BD 00 DAILY. Dx Medical ULTRAFINE E11.9 Branch III MINI PEN) 31 gauge x 3/16" Ndle Insulin 2022-0 Yes [id number] USE [facility], 02-02 DIRECTED ity of Disposable, 00:00: FOUR TIMES [place] (BD 00 DAILY. Dx Medical ULTRAFINE E11.9 Branch III MINI PEN) 31 gauge x 3/16" Ndle Insulin 2022-0 Yes [id number] USE [facility], 02-02 DIRECTED ity of Disposable, 00:00: FOUR TIMES [place] (BD 00 DAILY. Dx Medical ULTRAFINE E11.9 Branch III MINI PEN) 31 gauge x 3/16" Ndle Insulin 2022-0 Yes [id number] USE [facility], 02-02 DIRECTED ity of Disposable, 00:00: FOUR TIMES [place] (BD 00 DAILY. Dx Medical ULTRAFINE E11.9 Branch III MINI PEN) 31 gauge x 3/16" Ndle Insulin 2022-0 Yes [id number] USE [facility], 02-02 DIRECTED ity of Disposable, 00:00: FOUR TIMES [place] (BD 00 DAILY. Dx Medical ULTRAFINE E11.9 Branch III MINI PEN) 31 gauge x 3/16" Ndle Insulin 2022-0 Yes [id number] USE [facility], 02-02 DIRECTED ity of Disposable, 00:00: FOUR TIMES [place] (BD 00 DAILY. Dx Medical ULTRAFINE E11.9 Branch III MINI PEN) 31 gauge x 3/16" Ndle Insulin 2022-0 Yes [id number] USE [facility], 02-02 DIRECTED ity of Disposable, 00:00: FOUR TIMES [place] (BD 00 DAILY. Dx Medical ULTRAFINE E11.9 Branch III MINI PEN) 31 gauge x 3/16" Ndle Insulin 2022-0 Yes [id number] USE [facility], 02-02 DIRECTED ity of Disposable, 00:00: FOUR TIMES [place] (BD 00 DAILY. Dx Medical ULTRAFINE E11.9 Branch III MINI PEN) 31 gauge x 3/16" Ndle Insulin 2022-0 Yes [id number] USE [facility], 02-02 DIRECTED ity of Disposable, 00:00: FOUR TIMES [place] (BD 00 DAILY. Dx Medical ULTRAFINE E11.9 Branch III MINI PEN) 31 gauge x 3/16" Ndle Insulin 2022-0 Yes [id number] USE [facility], 02-02 DIRECTED ity of Disposable, 00:00: FOUR TIMES [place] (BD 00 DAILY. Dx Medical ULTRAFINE E11.9 Branch III MINI PEN) 31 gauge x 3/16" Ndle Insulin 2022-0 Yes [id number] USE [facility], 02-02 DIRECTED ity of Disposable, 00:00: FOUR TIMES [place] (BD 00 DAILY. Dx Medical ULTRAFINE E11.9 Branch III MINI PEN) 31 gauge x 3/16" Ndle Insulin 2022-0 Yes [id number] USE [facility], 02-02 DIRECTED ity of Disposable, 00:00: FOUR TIMES [place] (BD 00 DAILY. Dx Medical ULTRAFINE E11.9 Branch III MINI PEN) 31 gauge x 3/16" Ndle Insulin 2022-0 Yes [id number] USE [facility], 02-02 DIRECTED ity of Disposable, 00:00: FOUR TIMES [place] (BD 00 DAILY. Dx Medical ULTRAFINE E11.9 Branch III MINI PEN) 31 gauge x 3/16" Ndle Insulin 2022-0 Yes [id number] USE [facility], 02-02 DIRECTED ity of Disposable, 00:00: FOUR TIMES [place] (BD 00 DAILY. Dx Medical ULTRAFINE E11.9 Branch III MINI PEN) 31 gauge x 3/16" Ndle Insulin 2022-0 Yes [id number] USE [facility], 02-02 DIRECTED ity of Disposable, 00:00: FOUR TIMES [place] (BD 00 DAILY. Dx Medical ULTRAFINE E11.9 Branch III MINI PEN) 31 gauge x 3/16" Ndle Insulin 2022-0 Yes [id number] USE [facility], 02-02 DIRECTED ity of Disposable, 00:00: FOUR TIMES [place] (BD 00 DAILY. Dx Medical ULTRAFINE E11.9 Branch III MINI PEN) 31 gauge x 3/16" Ndle Insulin 2022-0 Yes [id number] USE [facility], 7 DIRECTED ity of Disposable, 00:00: FOUR TIMES [place] (BD 00 DAILY. Dx Medical ULTRAFINE E11.9 Branch III MINI PEN) 31 gauge x 3/16" Ndle Insulin 2022-0 Yes [id number] USE [facility], 7 DIRECTED ity of Disposable, 00:00: FOUR TIMES [place] (BD 00 DAILY. Dx Medical ULTRAFINE E11.9 Branch III MINI PEN) 31 gauge x 3/16" Ndle Insulin 2022-0 Yes [id number] USE [facility], 7 DIRECTED ity of Disposable, 00:00: FOUR TIMES [place] (BD 00 DAILY. Dx Medical ULTRAFINE E11.9 Branch III MINI PEN) 31 gauge x 3/16" Ndle Insulin 2022-0 Yes [id number] USE [facility], 7 DIRECTED ity of Disposable, 00:00: FOUR TIMES [place] (BD 00 DAILY. Dx Medical ULTRAFINE E11.9 Branch III MINI PEN) 31 gauge x 3/16" Ndle Insulin 2022-0 Yes [id number] USE [facility], 7 DIRECTED ity of Disposable, 00:00: FOUR TIMES [place] (BD 00 DAILY. Dx Medical ULTRAFINE E11.9 Branch III MINI PEN) 31 gauge x 3/16" Ndle Insulin 2022-0 Yes [id number] USE [facility], 7 DIRECTED ity of Disposable, 00:00: FOUR TIMES [place] (BD 00 DAILY. Dx Medical ULTRAFINE E11.9 Branch III MINI PEN) 31 gauge x 3/16" Ndle Insulin 2022-0 Yes [id number] USE [facility], 7 DIRECTED ity of Disposable, 00:00: FOUR TIMES [place] (BD 00 DAILY. Dx Medical ULTRAFINE E11.9 Branch III MINI PEN) 31 gauge x 3/16" Ndle Insulin 2022-0 Yes [id number] USE [facility], 7 DIRECTED ity of Disposable, 00:00: FOUR TIMES [place] (BD 00 DAILY. Dx Medical ULTRAFINE E11.9 Branch III MINI PEN) 31 gauge x 3/16" Ndle Insulin 2022-0 Yes [id number] USE [facility], 02-02 DIRECTED ity of Disposable, 00:00: FOUR TIMES [place] (BD 00 DAILY. Dx Medical ULTRAFINE E11.9 Branch III MINI PEN) 31 gauge x 3/16" Ndle Insulin 2022-0 Yes [id number] USE [facility], 02-02 DIRECTED ity of Disposable, 00:00: FOUR TIMES [place] (BD 00 DAILY. Dx Medical ULTRAFINE E11.9 Branch III MINI PEN) 31 gauge x 3/16" Ndle Insulin 2022-0 Yes [id number] USE [facility], 02-02 DIRECTED ity of Disposable, 00:00: FOUR TIMES [place] (BD 00 DAILY. Dx Medical ULTRAFINE E11.9 Branch III MINI PEN) 31 gauge x 3/16" Ndle Insulin 2022-0 Yes [id number] USE [facility], 02-02 DIRECTED ity of Disposable, 00:00: FOUR TIMES [place] (BD 00 DAILY. Dx Medical ULTRAFINE E11.9 Branch III MINI PEN) 31 gauge x 3/16" Ndle Insulin 2022-0 Yes [id number] USE [facility], 02-02 DIRECTED ity of Disposable, 00:00: FOUR TIMES [place] (BD 00 DAILY. Dx Medical ULTRAFINE E11.9 Branch III MINI PEN) 31 gauge x 3/16" Ndle Insulin 2022-0 Yes [id number] USE [facility], 02-02 DIRECTED ity of Disposable, 00:00: FOUR TIMES [place] (BD 00 DAILY. Dx Medical ULTRAFINE E11.9 Branch III MINI PEN) 31 gauge x 3/16" Ndle Insulin 2022-0 Yes [id number] USE [facility], 02-02 DIRECTED ity of Disposable, 00:00: FOUR TIMES [place] (BD 00 DAILY. Dx Medical ULTRAFINE E11.9 Branch III MINI PEN) 31 gauge x 3/16" Ndle Insulin 2022-0 Yes [id number] USE [facility], 02-02 DIRECTED ity of Disposable, 00:00: FOUR TIMES [place] (BD 00 DAILY. Dx Medical ULTRAFINE E11.9 Branch III MINI PEN) 31 gauge x 3/16" Ndle Insulin 2022-0 Yes [id number] USE [facility], 02-02 DIRECTED ity of Disposable, 00:00: FOUR TIMES [place] (BD 00 DAILY. Dx Medical ULTRAFINE E11.9 Branch III MINI PEN) 31 gauge x 3/16" Ndle Insulin 2022-0 Yes [id number] USE [facility], 02-02 DIRECTED ity of Disposable, 00:00: FOUR TIMES [place] (BD 00 DAILY. Dx Medical ULTRAFINE E11.9 Branch III MINI PEN) 31 gauge x 3/16" Ndle Insulin 2022-0 Yes [id number] USE [facility], 02-02 DIRECTED ity of Disposable, 00:00: FOUR TIMES [place] (BD 00 DAILY. Dx Medical ULTRAFINE E11.9 Branch III MINI PEN) 31 gauge x 3/16" Ndle Insulin 2022-0 Yes [id number] USE [facility], 02-02 DIRECTED ity of Disposable, 00:00: FOUR TIMES [place] (BD 00 DAILY. Dx Medical ULTRAFINE E11.9 Branch III MINI PEN) 31 gauge x 3/16" Ndle Insulin 2022-0 Yes [id number] USE [facility], 02-02 DIRECTED ity of Disposable, 00:00: FOUR TIMES [place] (BD 00 DAILY. Dx Medical ULTRAFINE E11.9 Branch III MINI PEN) 31 gauge x 3/16" Ndle Insulin 2022-0 Yes [id number] USE [facility], 02-02 DIRECTED ity of Disposable, 00:00: FOUR TIMES [place] (BD 00 DAILY. Dx Medical ULTRAFINE E11.9 Branch III MINI PEN) 31 gauge x 3/16" Ndle Insulin 2022-0 Yes [id number] USE [facility], 02-02 DIRECTED ity of Disposable, 00:00: FOUR TIMES [place] (BD 00 DAILY. Dx Medical ULTRAFINE E11.9 Branch III MINI PEN) 31 gauge x 3/16" Ndle Insulin 2022-0 Yes [id number] USE [facility], 02-02 DIRECTED ity of Disposable, 00:00: FOUR TIMES [place] (BD 00 DAILY. Dx Medical ULTRAFINE E11.9 Branch III MINI PEN) 31 gauge x 3/16" Ndle Insulin 2022-0 Yes [id number] USE [facility], 02-02 DIRECTED ity of Disposable, 00:00: FOUR TIMES [place] (BD 00 DAILY. Dx Medical ULTRAFINE E11.9 Branch III MINI PEN) 31 gauge x 3/16" Ndle Insulin 2022-0 Yes [id number] USE [facility], 02-02 DIRECTED ity of Disposable, 00:00: FOUR TIMES [place] (BD 00 DAILY. Dx Medical ULTRAFINE E11.9 Branch III MINI PEN) 31 gauge x 3/16" Ndle Insulin 2022-0 Yes [id number] USE [facility], 02-02 DIRECTED ity of Disposable, 00:00: FOUR TIMES [place] (BD 00 DAILY. Dx Medical ULTRAFINE E11.9 Branch III MINI PEN) 31 gauge x 3/16" Ndle Insulin 2022-0 Yes [id number] USE [facility], 02-02 DIRECTED ity of Disposable, 00:00: FOUR TIMES [place] (BD 00 DAILY. Dx Medical ULTRAFINE E11.9 Branch III MINI PEN) 31 gauge x 3/16" Ndle Insulin 2022-0 Yes [id number] USE [facility], 02-02 DIRECTED ity of Disposable, 00:00: FOUR TIMES [place] (BD 00 DAILY. Dx Medical ULTRAFINE E11.9 Branch III MINI PEN) 31 gauge x 3/16" Ndle Insulin 2022-0 Yes [id number] USE [facility], 02-02 DIRECTED ity of Disposable, 00:00: FOUR TIMES [place] (BD 00 DAILY. Dx Medical ULTRAFINE E11.9 Branch III MINI PEN) 31 gauge x 3/16" Ndle Insulin 2022-0 Yes [id number] USE [facility], 02-02 DIRECTED ity of Disposable, 00:00: FOUR TIMES [place] (BD 00 DAILY. Dx Medical ULTRAFINE E11.9 Branch III MINI PEN) 31 gauge x 3/16" Ndle Insulin 2022-0 Yes [id number] USE [facility], 02-02 DIRECTED ity of Disposable, 00:00: FOUR TIMES [place] (BD 00 DAILY. Dx Medical ULTRAFINE E11.9 Branch III MINI PEN) 31 gauge x 3/16" Ndle Insulin 2022-0 Yes [id number] USE [facility], 02-02 DIRECTED ity of Disposable, 00:00: FOUR TIMES [place] (BD 00 DAILY. Dx Medical ULTRAFINE E11.9 Branch III MINI PEN) 31 gauge x 3/16" Ndle Insulin 2022-0 Yes [id number] USE [facility], 02-02 DIRECTED ity of Disposable, 00:00: FOUR TIMES [place] (BD 00 DAILY. Dx Medical ULTRAFINE E11.9 Branch III MINI PEN) 31 gauge x 3/16" Ndle Insulin 2022-0 Yes [id number] USE [facility], 7- DIRECTED ity of Disposable, 00:00: FOUR TIMES [place] (BD 00 DAILY. Dx Medical ULTRAFINE E11.9 Branch III MINI PEN) 31 gauge x 3/16" Ndle Insulin 0 Yes [id number] USE [facility], 7-03 DIRECTED ity of Disposable, 00:00: FOUR TIMES [place] (BD 00 DAILY. Dx Medical ULTRAFINE E11.9 Branch III MINI PEN) 31 gauge x 3/16" Ndle Insulin Yes [id number] USE [facility], 7- DIRECTED ity of Disposable, 00:00: FOUR TIMES [place] (BD 00 DAILY. Dx Medical ULTRAFINE E11.9 Branch III MINI PEN) 31 gauge x 3/16" Ndle TRESIBA Yes [id number] ADMINISTER [facility] FLEXTOUCH 6-26 62 UNITS ity of U-200 200 00:00: UNDER THE [facility] as unit/mL (3 00 SKIN THREE Med ical mL) InPn TIMES Branch DAILY TRESIBA Yes [id number] ADMINISTER [facility] FLEXTOUCH 6-26 62 UNITS ity of U-200 200 00:00: UNDER THE [place] as unit/mL (3 00 SKIN THREE Med ical mL) InPn TIMES Branch DAILY TRESIBA Yes [id number] ADMINISTER [facility] FLEXTOUCH 6-26 62 UNITS ity of U-200 200 00:00: UNDER THE [place] as unit/mL (3 00 SKIN THREE Med ical mL) InPn TIMES Branch DAILY TRESIBA Yes [id number] ADMINISTER [facility] FLEXTOUCH 6-26 62 UNITS ity of U-200 200 00:00: UNDER THE [place] as unit/mL (3 00 SKIN THREE Med ical mL) InPn TIMES Branch DAILY TRESIBA Yes [id number] ADMINISTER [facility] FLEXTOUCH 6-26 62 UNITS ity of U-200 200 00:00: UNDER THE [facility] as unit/mL (3 00 SKIN THREE Med ical mL) InPn TIMES Branch DAILY TRESIBA Yes [id number] ADMINISTER [facility] FLEXTOUCH 6-26 62 UNITS ity of U-200 200 00:00: UNDER THE [place] as unit/mL (3 00 SKIN THREE Med ical mL) InPn TIMES Branch DAILY TRESIBA Yes [id number] ADMINISTER [facility] FLEXTOUCH 6-26 62 UNITS ity of U-200 200 00:00: UNDER THE [facility] as unit/mL (3 00 SKIN THREE Med ical mL) InPn TIMES Branch DAILY TRESIBA Yes [id number] ADMINISTER [facility] FLEXTOUCH 6-26 62 UNITS ity of U-200 200 00:00: UNDER THE [facility] as unit/mL (3 00 SKIN THREE Med ical mL) InPn TIMES Branch DAILY TRESIBA Yes [id number] ADMINISTER [facility] FLEXTOUCH 6-26 62 UNITS ity of U-200 200 00:00: UNDER THE [facility] as unit/mL (3 00 SKIN THREE Med ical mL) InPn TIMES Branch DAILY TRESIBA Yes [id number] ADMINISTER [facility] FLEXTOUCH 6-26 62 UNITS ity of U-200 200 00:00: UNDER THE [facility] as unit/mL (3 00 SKIN THREE Med ical mL) InPn TIMES Branch DAILY TRESIBA Yes [id number] ADMINISTER [facility] FLEXTOUCH 6-26 62 UNITS ity of U-200 200 00:00: UNDER THE [facility] as unit/mL (3 00 SKIN THREE Med ical mL) InPn TIMES Branch DAILY TRESIBA Yes [id number] ADMINISTER [facility] FLEXTOUCH 6-26 62 UNITS ity of U-200 200 00:00: UNDER THE [facility] as unit/mL (3 00 SKIN THREE Med ical mL) InPn TIMES Branch DAILY TRESIBA Yes [id number] ADMINISTER [facility] FLEXTOUCH 6-26 62 UNITS ity of U-200 200 00:00: UNDER THE [facility] as unit/mL (3 00 SKIN THREE Med ical mL) InPn TIMES Branch DAILY TRESIBA Yes [id number] ADMINISTER [facility] FLEXTOUCH 6-26 62 UNITS ity of U-200 200 00:00: UNDER THE [facility] as unit/mL (3 00 SKIN THREE Med ical mL) InPn TIMES Branch DAILY TRESIBA Yes [id number] ADMINISTER [facility] FLEXTOUCH 6-26 62 UNITS ity of U-200 200 00:00: UNDER THE [facility] as unit/mL (3 00 SKIN THREE Med ical mL) InPn TIMES Branch DAILY TRESIBA Yes [id number] ADMINISTER [facility] FLEXTOUCH 6-26 62 UNITS ity of U-200 200 00:00: UNDER THE [facility] as unit/mL (3 00 SKIN THREE Med ical mL) InPn TIMES Branch DAILY TRESIBA Yes [id number] ADMINISTER [facility] FLEXTOUCH 6-26 62 UNITS ity of U-200 200 00:00: UNDER THE [facility] as unit/mL (3 00 SKIN THREE Med ical mL) InPn TIMES Branch DAILY TRESIBA Yes [id number] ADMINISTER [facility] FLEXTOUCH 6-26 62 UNITS ity of U-200 200 00:00: UNDER THE [facility] as unit/mL (3 00 SKIN THREE Med ical mL) InPn TIMES Branch DAILY TRESIBA Yes [id number] ADMINISTER [facility] FLEXTOUCH 6-26 62 UNITS ity of U-200 200 00:00: UNDER THE [facility] as unit/mL (3 00 SKIN THREE Med ical mL) InPn TIMES Branch DAILY TRESIBA Yes [id number] ADMINISTER [facility] FLEXTOUCH 6-26 62 UNITS ity of U-200 200 00:00: UNDER THE [facility] as unit/mL (3 00 SKIN THREE Med ical mL) InPn TIMES Branch DAILY TRESIBA Yes [id number] ADMINISTER [facility] FLEXTOUCH 6-26 62 UNITS ity of U-200 200 00:00: UNDER THE [facility] as unit/mL (3 00 SKIN THREE Med ical mL) InPn TIMES Branch DAILY TRESIBA Yes [id number] ADMINISTER [facility] FLEXTOUCH 6-26 62 UNITS ity of U-200 200 00:00: UNDER THE [facility] as unit/mL (3 00 SKIN THREE Med ical mL) InPn TIMES Branch DAILY TRESIBA Yes [id number] ADMINISTER [facility] FLEXTOUCH 6-26 62 UNITS ity of U-200 200 00:00: UNDER THE [facility] as unit/mL (3 00 SKIN THREE Med ical mL) InPn TIMES Branch DAILY TRESIBA Yes [id number] ADMINISTER [facility] FLEXTOUCH 6-26 62 UNITS ity of U-200 200 00:00: UNDER THE [facility] as unit/mL (3 00 SKIN THREE Med ical mL) InPn TIMES Branch DAILY TRESIBA Yes [id number] ADMINISTER [facility] FLEXTOUCH 6-26 62 UNITS ity of U-200 200 00:00: UNDER THE [facility] as unit/mL (3 00 SKIN THREE Med ical mL) InPn TIMES Branch DAILY TRESIBA Yes [id number] ADMINISTER [facility] FLEXTOUCH 6-26 62 UNITS ity of U-200 200 00:00: UNDER THE [facility] as unit/mL (3 00 SKIN THREE Med ical mL) InPn TIMES Branch DAILY TRESIBA Yes [id number] ADMINISTER [facility] FLEXTOUCH 6-26 62 UNITS ity of U-200 200 00:00: UNDER THE [facility] as unit/mL (3 00 SKIN THREE Med ical mL) InPn TIMES Branch DAILY TRESIBA Yes [id number] ADMINISTER [facility] FLEXTOUCH 6-26 62 UNITS ity of U-200 200 00:00: UNDER THE [facility] as unit/mL (3 00 SKIN THREE Med ical mL) InPn TIMES Branch DAILY TRESIBA Yes [id number] ADMINISTER [facility] FLEXTOUCH 6-26 62 UNITS ity of U-200 200 00:00: UNDER THE [facility] as unit/mL (3 00 SKIN THREE Med ical mL) InPn TIMES Branch DAILY TRESIBA Yes [id number] ADMINISTER [facility] FLEXTOUCH 6-26 62 UNITS ity of U-200 200 00:00: UNDER THE [facility] as unit/mL (3 00 SKIN THREE Med ical mL) InPn TIMES Branch DAILY TRESIBA Yes [id number] ADMINISTER [facility] FLEXTOUCH 6-26 62 UNITS ity of U-200 200 00:00: UNDER THE [facility] as unit/mL (3 00 SKIN THREE Med ical mL) InPn TIMES Branch DAILY TRESIBA Yes [id number] ADMINISTER [facility] FLEXTOUCH 6-26 62 UNITS ity of U-200 200 00:00: UNDER THE [facility] as unit/mL (3 00 SKIN THREE Med ical mL) InPn TIMES Branch DAILY TRESIBA Yes [id number] ADMINISTER [facility] FLEXTOUCH 6-26 62 UNITS ity of U-200 200 00:00: UNDER THE [facility] as unit/mL (3 00 SKIN THREE Med ical mL) InPn TIMES Branch DAILY TRESIBA 2022-0 2022- No [id number] ADMINISTER [facility] FLEXTOUCH 6-26 11-03 62 UNITS ity o f U-200 200 00:00: 00:00 [place]ER THE [place] unit/mL (3 00 :00 SKIN THREE Med ical mL) InPn TIMES Branch DAILY VERAPAMIL 0 Yes [id number] 240mg TAKE 1 [facility] 240 mg 24 5-31 CAPSULE BY ity of hr capsule 00:00: MOUTH DAILY [facility] VERAPAMIL 2021-0 Yes [id number] 240mg TAKE 1 [facility] 240 mg 24 5-31 CAPSULE BY [facility]y of hr capsule 00:00: MOUTH DAILY [facility] VERAPAMIL 2021-0 Yes [id number] 240mg TAKE 1 [facility] 240 mg 24 5-31 CAPSULE BY [facility] of hr capsule 00:00: MOUTH DAILY [facility] VERAPAMIL 2021-0 2021- No [id number] 240mg TAKE 1 [facility] 240 mg 24 5-31 08-29 CAPSULE BY [facility]y of hr capsule 00:00: 00:00 MOUTH [place] 00 :00 DAILY [facility] mupirocin 2 0 Yes [id number] Apply to [facility] % ointment 5-25 area(s) 3 ity of 00:00: (three) [place] times Medical daily. Branch mupirocin 2 2021-0 Yes [id number] Apply to [facility] % ointment 5-25 area(s) 3 ity of 00:00: (three) [place] times Medical daily. Branch mupirocin 2 2021-0 Yes [id number] Apply to [facility] % ointment 5-25 area(s) 3 ity of 00:00: (three) [place] times Medical daily. Branch mupirocin 2 2021-0 Yes [id number] Apply to [facility] % ointment 5-25 area(s) 3 ity of 00:00: (three) [place] times Medical daily. Branch mupirocin 2 2021-0 Yes [id number] Apply to [facility] % ointment 5-25 area(s) 3 ity of 00:00: (three) [place] times Medical daily. Branch mupirocin 2 2021-0 Yes [id number] Apply to [facility] % ointment 5-25 area(s) 3 ity of 00:00: (three) [place] 00 times Medical daily. Branch mupirocin 2 2-0 Yes [id number] Apply to [facility] % ointment 5-25 area(s) 3 ity of 00:00: (three) [place] 00 times Medical daily. Branch mupirocin 2 2021-0 Yes [id number] Apply to [facility] % ointment 5-25 area(s) 3 ity of 00:00: (three) [place] 00 times Medical daily. Branch mupirocin 2 2021-0 Yes [id number] Apply to [facility] % ointment 5-25 area(s) 3 ity of 00:00: (three) [place] 00 times Medical daily. Branch mupirocin 2 2-0 Yes [id number] Apply to [facility] % ointment 5-25 area(s) 3 ity of 00:00: (three) [place] 00 times Medical daily. Branch mupirocin 2 2021-0 Yes [id number] Apply to [facility] % ointment 5-25 area(s) 3 ity of 00:00: (three) [place] 00 times Medical daily. Branch mupirocin 2 2021-0 Yes [id number] Apply to [facility] % ointment 5-25 area(s) 3 ity of 00:00: (three) [place] 00 times Medical daily. Branch mupirocin 2 2021-0 Yes [id number] Apply to [facility] % ointment 5-25 area(s) 3 ity of 00:00: (three) [place] 00 times Medical daily. Branch mupirocin 2 2021-0 Yes [id number] Apply to [facility] % ointment 5-25 area(s) 3 ity of 00:00: (three) [place] 00 times Medical daily. Branch mupirocin 2 2-0 Yes [id number] Apply to [facility] % ointment 5-25 area(s) 3 ity of 00:00: (three) [place] 00 times Medical daily. Branch mupirocin 2 2-0 Yes [id number] Apply to [facility] % ointment 5-25 area(s) 3 ity of 00:00: (three) [place] 00 times Medical daily. Branch mupirocin 2 2-0 Yes [id number] Apply to [facility] % ointment 5-25 area(s) 3 ity of 00:00: (three) [place] 00 times Medical daily. Branch mupirocin 2 2022-0 Yes [id number] Apply to [facility] % ointment 5-25 area(s) 3 ity of 00:00: (three) [place] 00 times Medical daily. Branch mupirocin 2 2-0 Yes [id number] Apply to [facility] % ointment 5-25 area(s) 3 ity of 00:00: (three) [place] 00 times Medical daily. Branch mupirocin 2 2-0 Yes [id number] Apply to [facility] % ointment 5-25 area(s) 3 ity of 00:00: (three) [place] 00 times Medical daily. Branch mupirocin 2 2-0 Yes [id number] Apply to [facility] % ointment 5-25 area(s) 3 ity of 00:00: (three) [place] 00 times Medical daily. Branch mupirocin 2 2-0 Yes [id number] Apply to [facility] % ointment 5-25 area(s) 3 ity of 00:00: (three) [place] 00 times Medical daily. Branch mupirocin 2 2-0 Yes [id number] Apply to [facility] % ointment 5-25 area(s) 3 ity of 00:00: (three) [place] 00 times Medical daily. Branch mupirocin 2 2-0 Yes [id number] Apply to [facility] % ointment 5-25 area(s) 3 ity of 00:00: (three) [place] 00 times Medical daily. Branch mupirocin 2 2-0 Yes [id number] Apply to [facility] % ointment 5-25 area(s) 3 ity of 00:00: (three) [place] 00 times Medical daily. Branch mupirocin 2 2-0 Yes [id number] Apply to [facility] % ointment 5-25 area(s) 3 ity of 00:00: (three) [place] 00 times Medical daily. Branch mupirocin 2 2022-0 Yes [id number] Apply to [facility] % ointment 5-25 area(s) 3 ity of 00:00: (three) [place] 00 times Medical daily. Branch mupirocin 2 2-0 Yes [id number] Apply to [facility] % ointment 5-25 area(s) 3 ity of 00:00: (three) [place] 00 times Medical daily. Branch mupirocin 2 2-0 Yes [id number] Apply to [facility] % ointment 5-25 area(s) 3 ity of 00:00: (three) [place] 00 times Medical daily. Branch mupirocin 2 2-0 Yes [id number] Apply to [facility] % ointment 5-25 area(s) 3 ity of 00:00: (three) [place] 00 times Medical daily. Branch mupirocin 2 2-0 Yes [id number] Apply to [facility] % ointment 5-25 area(s) 3 ity of 00:00: (three) [place] 00 times Medical daily. Branch mupirocin 2 2-0 Yes [id number] Apply to [facility] % ointment 5-25 area(s) 3 ity of 00:00: (three) [place] 00 times Medical daily. Branch mupirocin 2 2-0 Yes [id number] Apply to [facility] % ointment 5-25 area(s) 3 ity of 00:00: (three) [place] 00 times Medical daily. Branch mupirocin 2 2-0 Yes [id number] Apply to [facility] % ointment 5-25 area(s) 3 ity of 00:00: (three) [place] 00 times Medical daily. Branch mupirocin 2 2-0 Yes [id number] Apply to [facility] % ointment 5-25 area(s) 3 ity of 00:00: (three) [place] 00 times Medical daily. Branch mupirocin 2 2-0 Yes [id number] Apply to [facility] % ointment 5-25 area(s) 3 ity of 00:00: (three) [place] 00 times Medical daily. Branch mupirocin 2 2-0 Yes [id number] Apply to [facility] % ointment 5-25 area(s) 3 ity of 00:00: (three) [place] 00 times Medical daily. Branch mupirocin 2 2022-0 Yes [id number] Apply to [facility] % ointment 5-25 area(s) 3 ity of 00:00: (three) [place] 00 times Medical daily. Branch mupirocin 2 2-0 Yes [id number] Apply to [facility] % ointment 5-25 area(s) 3 ity of 00:00: (three) [place] 00 times Medical daily. Branch mupirocin 2 2021-0 Yes [id number] Apply to [facility] % ointment 5-25 area(s) 3 ity of 00:00: (three) [place] 00 times Medical daily. Branch mupirocin 2 2021-0 Yes [id number] Apply to [facility] % ointment 5-25 area(s) 3 ity of 00:00: (three) [place] 00 times Medical daily. Branch mupirocin 2 2021-0 Yes [id number] Apply to [facility] % ointment 5-25 area(s) 3 ity of 00:00: (three) [place] 00 times Medical daily. Branch mupirocin 2 2021-0 Yes [id number] Apply to [facility] % ointment 5-25 area(s) 3 ity of 00:00: (three) [place] 00 times Medical daily. Branch mupirocin 2 2021-0 Yes [id number] Apply to [facility] % ointment 5-25 area(s) 3 ity of 00:00: (three) [place] 00 times Medical daily. Branch mupirocin 2 2021-0 Yes [id number] Apply to [facility] % ointment 5-25 area(s) 3 ity of 00:00: (three) [place] 00 times Medical daily. Branch mupirocin 2 2021-0 Yes [id number] Apply to [facility] % ointment 5-25 area(s) 3 ity of 00:00: (three) [place] 00 times Medical daily. Branch mupirocin 2 2021-0 Yes [id number] Apply to [facility] % ointment 5-25 area(s) 3 ity of 00:00: (three) [place] 00 times Medical daily. Branch mupirocin 2 2021-0 Yes [id number] Apply to [facility] % ointment 5-25 area(s) 3 ity of 00:00: (three) [place] 00 times Medical daily. Branch mupirocin 2 2-0 Yes [id number] Apply to [facility] % ointment 5-25 area(s) 3 ity of 00:00: (three) [place] 00 times Medical daily. Branch mupirocin 2 2-0 Yes [id number] Apply to [facility] % ointment 5-25 area(s) 3 ity of 00:00: (three) [place] 00 times Medical daily. Branch mupirocin 2 2021-0 2021- No [id number] Apply to [facility] % ointment 5-25 -28 area(s) 3 ity of 00:00: 00:00 (three) [place] 00 :00 times Medical daily. Branch mupirocin 2 2021-0 2021- No [id number] Apply to [facility] % ointment 5-25 -28 area(s) 3 ity of 00:00: 00:00 (three) [place] 00 :00 times Medical daily. Branch aspirin 325 2021-0 Yes 325mg Take 325 [facility] mg tablet 5-10 mg by ity of 09:43: mouth [place] 40 daily. Medical Branch aspirin 325 2021-0 Yes 325mg Take 325 [facility] mg tablet 5-10 mg by ity of 09:43: mouth [place] 40 daily. Medical Branch aspirin 325 2021-0 Yes 325mg Take 325 [facility] mg tablet 5-10 mg by ity of 09:43: mouth [place] 40 daily. Medical Branch aspirin 325 2021-0 Yes 325mg Take 325 [facility] mg tablet 5-10 mg by ity of 09:43: mouth [place] 40 daily. Medical [facility] aspirin 325 2021-0 Yes 325mg Take 325 [facility] mg tablet 5-10 mg by ity of 09:43: mouth [place] 40 daily. Medical [facility] aspirin 325 2021-0 Yes 325mg Take 325 [facility] mg tablet 5-10 mg by ity of 09:43: mouth [place] 40 daily. Medical Branch aspirin 325 2021-0 Yes 325mg Take 325 [facility] mg tablet 5-10 mg by ity of 09:43: mouth [place] 40 daily. Medical Branch aspirin 325 2021-0 Yes 325mg Take 325 [facility] mg tablet 5-10 mg by ity of 09:43: mouth [place] 40 daily. Medical [facility] aspirin 325 2021-0 Yes 325mg Take 325 [facility] mg tablet 5-10 mg by ity of 09:43: mouth [place] 40 daily. Medical [facility] aspirin 325 2021-0 Yes 325mg Take 325 [facility] mg tablet 5-10 mg by ity of 09:43: mouth [place] 40 daily. Medical [facility] aspirin 325 2021-0 Yes 325mg Take 325 [facility] mg tablet 5-10 mg by ity of 09:43: mouth [place] 40 daily. Medical [facility] aspirin 325 2021-0 Yes 325mg Take 325 [facility] mg tablet 5-10 mg by ity of 09:43: mouth [place] 40 daily. [facility] aspirin 325 2021-0 Yes 325mg Take 325 [facility] mg tablet 5-10 mg by ity of 09:43: mouth [place] 40 daily. Medical [facility] aspirin 325 2021-0 Yes 325mg Take 325 [facility] mg tablet 5-10 mg by ity of 09:43: mouth [place] 40 daily. Medical [facility] aspirin 325 2021-0 Yes 325mg Take 325 [facility] mg tablet 5-10 mg by ity of 09:43: mouth [place] 40 daily. [facility] aspirin 325 2021-0 Yes 325mg Take 325 [facility] mg tablet 5-10 mg by ity of 09:43: mouth [place] 40 daily. [facility] aspirin 325 2021-0 Yes 325mg Take 325 [facility] mg tablet 5-10 mg by ity of 09:43: mouth [place] 40 daily. Medical [facility] aspirin 325 2021-0 Yes 325mg Take 325 [facility] mg tablet 5-10 mg by ity of 09:43: mouth [place] 40 daily. [facility] aspirin 325 2021-0 Yes 325mg Take 325 [facility] mg tablet 5-10 mg by ity of 09:43: mouth [place] 40 daily. Medical [facility] aspirin 325 2021-0 Yes 325mg Take 325 [facility] mg tablet 5-10 mg by ity of 09:43: mouth [place] 40 daily. [facility] aspirin 325 2021-0 Yes 325mg Take 325 [facility] mg tablet 5-10 mg by ity of 09:43: mouth [place] 40 daily. [facility] aspirin 325 2021-0 Yes 325mg Take 325 [facility] mg tablet 5-10 mg by ity of 09:43: mouth [place] 40 daily. Medical [facility] aspirin 325 2021-0 Yes 325mg Take 325 [facility] mg tablet 5-10 mg by ity of 09:43: mouth [place] 40 daily. [facility] aspirin 325 2021-0 Yes 325mg Take 325 [facility] mg tablet 5-10 mg by ity of 09:43: mouth [place] 40 daily. [facility] aspirin 325 2021-0 Yes 325mg Take 325 [facility] mg tablet 5-10 mg by ity of 09:43: mouth [place] 40 daily. [facility] aspirin 325 2021-0 Yes 325mg Take 325 [facility] mg tablet 5-10 mg by ity of 09:43: mouth [place] 40 daily. Medical [facility] aspirin 325 2021-0 Yes 325mg Take 325 [facility] mg tablet 5-10 mg by ity of 09:43: mouth [place] 40 daily. Medical [facility] aspirin 325 2-0 Yes 325mg Take 325 [facility] mg tablet 5-10 mg by ity of 09:43: mouth [place] 40 daily. [facility] aspirin 325 2021-0 Yes 325mg Take 325 [facility] mg tablet 5-10 mg by ity of 09:43: mouth [place] 40 daily. [facility] aspirin 325 2021-0 Yes 325mg Take 325 [facility] mg tablet 5-10 mg by ity of 09:43: mouth [place] 40 daily. [facility] aspirin 325 2021-0 Yes 325mg Take 325 [facility] mg tablet 5-10 mg by ity of 09:43: mouth [place] 40 daily. [facility] aspirin 325 2021-0 Yes 325mg Take 325 [facility] mg tablet 5-10 mg by ity of 09:43: mouth [place] 40 daily. [facility] aspirin 325 2021-0 Yes 325mg Take 325 [facility] mg tablet 5-10 mg by ity of 09:43: mouth [place] 40 daily. [facility] aspirin 325 2021-0 Yes 325mg Take 325 [facility] mg tablet 5-10 mg by ity of 09:43: mouth [place] 40 daily. [facility] aspirin 325 2021-0 Yes 325mg Take 325 [facility] mg tablet 5-10 mg by ity of 09:43: mouth [place] 40 daily. [facility] aspirin 325 2021-0 Yes 325mg Take 325 [facility] mg tablet 5-10 mg by ity of 09:43: mouth [place] 40 daily. [facility] aspirin 325 2-0 Yes 325mg Take 325 [facility] mg tablet 5-10 mg by ity of 09:43: mouth [place] 40 daily. [facility] aspirin 325 2-0 Yes 325mg Take 325 [facility] mg tablet 5-10 mg by ity of 09:43: mouth [place] 40 daily. [facility] aspirin 325 2-0 Yes 325mg Take 325 [facility] mg tablet 5-10 mg by ity of 09:43: mouth [place] 40 daily. [facility] aspirin 325 2021-0 Yes 325mg Take 325 [facility] mg tablet 5-10 mg by ity of 09:43: mouth [place] 40 daily. [facility] aspirin 325 2021-0 Yes 325mg Take 325 [facility] mg tablet 5-10 mg by ity of 09:43: mouth [place] 40 daily. [facility] aspirin 325 2021-0 Yes 325mg Take 325 [facility] mg tablet 5-10 mg by ity of 09:43: mouth [place] 40 daily. Medical [facility] aspirin 325 2021-0 Yes 325mg Take 325 [facility] mg tablet 5-10 mg by ity of 09:43: mouth [place] 40 daily. [facility] aspirin 325 2021-0 Yes 325mg Take 325 [facility] mg tablet 5-10 mg by ity of 09:43: mouth [place] 40 daily. [facility] aspirin 325 2021-0 Yes 325mg Take 325 [facility] mg tablet 5-10 mg by ity of 09:43: mouth [place] 40 daily. [facility] aspirin 325 2021-0 Yes 325mg Take 325 [facility] mg tablet 5-10 mg by ity of 09:43: mouth [place] 40 daily. [facility] aspirin 325 2021-0 Yes 325mg Take 325 [facility] mg tablet 5-10 mg by ity of 09:43: mouth [place] 40 daily. [facility] aspirin 325 2021-0 Yes 325mg Take 325 [facility] mg tablet 5-10 mg by ity of 09:43: mouth [place] 40 daily. [facility] aspirin 325 2021-0 Yes 325mg Take 325 [facility] mg tablet 5-10 mg by ity of 09:43: mouth [place] 40 daily. [facility] aspirin 325 2021-0 Yes 325mg Take 325 [facility] mg tablet 5-10 mg by ity of 09:43: mouth [place] 40 daily. [facility] aspirin 325 2021-0 Yes 325mg Take 325 [facility] mg tablet 5-10 mg by ity of 09:43: mouth [place] 40 daily. [facility] aspirin 325 2021-0 Yes 325mg Take 325 [facility] mg tablet 5-10 mg by ity of 09:43: mouth [place] 40 daily. [facility] aspirin 325 2021-0 Yes 325mg Take 325 [facility] mg tablet 5-10 mg by ity of 09:43: mouth [place] 40 daily. [facility] aspirin 325 2021-0 Yes 325mg Take 325 [facility] mg tablet 5-10 mg by ity of 09:43: mouth [place] 40 daily. [facility] aspirin 325 2021-0 Yes 325mg Take 325 [facility] mg tablet 5-10 mg by ity of 09:43: mouth [place] 40 daily. [facility] aspirin 325 2021-0 Yes 325mg Take 325 [facility] mg tablet 5-10 mg by ity of 09:43: mouth [place] 40 daily. [facility] aspirin 325 2021-0 Yes 325mg Take 325 [facility] mg tablet 5-10 mg by ity of 09:43: mouth [place] 40 daily. [facility] aspirin 325 2021-0 Yes 325mg Take 325 [facility] mg tablet 5-10 mg by ity of 09:43: mouth [place] 40 daily. [facility] aspirin 325 2021-0 Yes 325mg Take 325 [facility] mg tablet 5-10 mg by ity of 09:43: mouth [place] 40 daily. [facility] aspirin 325 2021-0 Yes 325mg Take 325 [facility] mg tablet 5-10 mg by ity of 09:43: mouth [place] 40 daily. [facility] aspirin 325 2021-0 Yes 325mg Take 325 [facility] mg tablet 5-10 mg by ity of 09:43: mouth [place] 40 daily. [facility] aspirin 325 2021-0 Yes 325mg Take 325 [facility] mg tablet 5-10 mg by ity of 09:43: mouth [place] 40 daily. [facility] aspirin 325 2021-0 Yes 325mg Take 325 [facility] mg tablet 5-10 mg by ity of 09:43: mouth [place] 40 daily. [facility] aspirin 325 2021-0 Yes 325mg Take 325 [facility] mg tablet 5-10 mg by ity of 09:43: mouth [place] 40 daily. [facility] aspirin 325 2021-0 Yes 325mg Take 325 [facility] mg tablet 5-10 mg by ity of 09:43: mouth [place] 40 daily. [facility] aspirin 325 2021-0 Yes 325mg Take 325 [facility] mg tablet 5-10 mg by ity of 09:43: mouth [place] 40 daily. [facility] aspirin 325 2021-0 Yes 325mg Take 325 [facility] mg tablet 5-10 mg by ity of 09:43: mouth [place] 40 daily. [facility] aspirin 325 2021-0 Yes 325mg Take 325 [facility] mg tablet 5-10 mg by ity of 09:43: mouth [place] 40 daily. [facility] aspirin 325 0 Yes 325mg Take 325 [facility] mg tablet 5-10 mg by ity of 09:43: mouth [place] 40 daily. [facility] aspirin 325 0 Yes 325mg Take 325 [facility] mg tablet 5-10 mg by ity of 09:43: mouth [place] 40 daily. [facility] ketoconazol Yes [id number] Apply to [facility] 2 % 5-10 area(s) [facility] shampoo 00:00: once daily [place] 00 as needed [facility] for [facility] Itching. ketoconazol Yes [id number] Apply to [facility] e 2 % 5-10 area(s) [facility] of shampoo 00:00: once daily [place] 00 as needed [facility] for [facility] Itching. ketoconazol Yes [id number] Apply to [facility] e 2 % 5-10 area(s) [facility]y of shampoo 00:00: once daily [place] 00 as needed [facility] for [facility] Itching. ketoconazol Yes [id number] Apply to [facility] e 2 % 5-10 area(s) [facility] of shampoo 00:00: once daily [place] 00 as needed [facility] for [facility] Itching. ketoconazol Yes [id number] Apply to [facility] e 2 % 5-10 area(s) [facility]y of shampoo 00:00: once daily [place] 00 as needed [facility] for [facility] Itching. ketoconazol Yes [id number] Apply to [facility] e 2 % 5-10 area(s) [facility]y of shampoo 00:00: once daily [place] 00 as needed [facility] for [facility] Itching. ketoconazol 0 Yes [id number] Apply to [facility] e 2 % 5-10 area(s) [facility]y of shampoo 00:00: once daily [place] 00 as needed [facility] for [facility] Itching. ketoconazol 0 Yes [id number] Apply to [facility] e 2 % 5-10 area(s) [facility]y of shampoo 00:00: once daily [place] 00 as needed [facility] for [facility] Itching. ketoconazol 0 Yes [id number] Apply to [facility] e 2 % 5-10 area(s) [facility]y of shampoo 00:00: once daily [place] 00 as needed [facility] for [facility] Itching. ketoconazol 0 Yes [id number] Apply to [facility] e 2 % 5-10 area(s) [facility]y of shampoo 00:00: once daily [place] 00 as needed [facility] for [facility] Itching. ketoconazol 0 Yes [id number] Apply to [facility] e 2 % 5-10 area(s) [facility]y of shampoo 00:00: once daily [place] 00 as needed [facility] for [facility] Itching. ketoconazol 0 Yes [id number] Apply to [facility] e 2 % 5-10 area(s) ity of shampoo 00:00: once daily [place] 00 as needed [facility] for [facility] Itching. ketoconazol 0 Yes [id number] Apply to [facility] e 2 % 5-10 area(s) [facility]y of shampoo 00:00: once daily [place] 00 as needed [facility] for [facility] Itching. ketoconazol 0 Yes [id number] Apply to [facility] e 2 % 5-10 area(s) ity of shampoo 00:00: once daily [place] 00 as needed [facility] for [facility] Itching. ketoconazol 0 Yes [id number] Apply to [facility] e 2 % 5-10 area(s) ity of shampoo 00:00: once daily [place] 00 as needed [facility] for [facility] Itching. ketoconazol 0 Yes [id number] Apply to [facility] e 2 % 5-10 area(s) ity of shampoo 00:00: once daily [place] 00 as needed [facility] for [facility] Itching. ketoconazol 0 Yes [id number] Apply to [facility] e 2 % 5-10 area(s) ity of shampoo 00:00: once daily [place] 00 as needed [facility] for [facility] Itching. ketoconazol 2021-0 Yes [id number] Apply to [facility] e 2 % 5-10 area(s) ity of shampoo 00:00: once daily [place] 00 as needed [facility] for [facility] Itching. ketoconazol 2021-0 Yes [id number] Apply to [facility] e 2 % 5-10 area(s) [facility]y of shampoo 00:00: once daily [place] 00 as needed [facility] for [facility] Itching. ketoconazol 0 Yes [id number] Apply to [facility] e 2 % 5-10 area(s) ity of shampoo 00:00: once daily [place] 00 as needed [facility] for [facility] Itching. ketoconazol 0 Yes [id number] Apply to [facility] e 2 % 5-10 area(s) ity of shampoo 00:00: once daily [place] 00 as needed [facility] for [facility] Itching. ketoconazol 0 Yes [id number] Apply to [facility] e 2 % 5-10 area(s) [facility]y of shampoo 00:00: once daily [place] 00 as needed [facility] for [facility] Itching. ketoconazol 0 Yes [id number] Apply to [facility] e 2 % 5-10 area(s) ity of shampoo 00:00: once daily [place] 00 as needed [facility] for [facility] Itching. ketoconazol 0 Yes [id number] Apply to [facility] e 2 % 5-10 area(s) ity of shampoo 00:00: once daily [place] 00 as needed [facility] for [facility] Itching. ketoconazol 0 Yes [id number] Apply to [facility] e 2 % 5-10 area(s) ity of shampoo 00:00: once daily [place] 00 as needed [facility] for [facility] Itching. ketoconazol 0 Yes [id number] Apply to [facility] e 2 % 5-10 area(s) ity of shampoo 00:00: once daily [place] 00 as needed [facility] for [facility] Itching. ketoconazol 0 Yes [id number] Apply to [facility] e 2 % 5-10 area(s) ity of shampoo 00:00: once daily [place] 00 as needed [facility] for [facility] Itching. ketoconazol 0 Yes [id number] Apply to [facility] e 2 % 5-10 area(s) ity of shampoo 00:00: once daily [place] 00 as needed [facility] for [facility] Itching. ketoconazol 0 Yes [id number] Apply to [facility] e 2 % 5-10 area(s) ity of shampoo 00:00: once daily [place] 00 as needed [facility] for [facility] Itching. ketoconazol Yes [id number] Apply to [facility] e 2 % 5-10 area(s) ity of shampoo 00:00: once daily [place] 00 as needed [facility] for [facility] Itching. ketoconazol 0 Yes [id number] Apply to [facility] e 2 % 5-10 area(s) ity of shampoo 00:00: once daily [place] 00 as needed [facility] for [facility] Itching. ketoconazol 0 Yes [id number] Apply to [facility] e 2 % 5-10 area(s) ity of shampoo 00:00: once daily [place] 00 as needed [facility] for [facility] Itching. ketoconazol 0 Yes [id number] Apply to [facility] e 2 % 5-10 area(s) ity of shampoo 00:00: once daily [place] 00 as needed [facility] for [facility] Itching. ketoconazol Yes [id number] Apply to [facility] e 2 % 5-10 area(s) ity of shampoo 00:00: once daily [place] 00 as needed [facility] for [facility] Itching. ketoconazol Yes [id number] Apply to [facility] e 2 % 5-10 area(s) ity of shampoo 00:00: once daily [place] 00 as needed [facility] for [facility] Itching. ketoconazol 0 Yes [id number] Apply to [facility] e 2 % 5-10 area(s) ity of shampoo 00:00: once daily [place] 00 as needed [facility] for [facility] Itching. ketoconazol 0 Yes [id number] Apply to [facility] e 2 % 5-10 area(s) ity of shampoo 00:00: once daily [place] 00 as needed [facility] for [facility] Itching. ketoconazol 0 Yes [id number] Apply to [facility] e 2 % 5-10 area(s) ity of shampoo 00:00: once daily [place] 00 as needed [facility] for [facility] Itching. ketoconazol 0 Yes [id number] Apply to [facility] e 2 % 5-10 area(s) ity of shampoo 00:00: once daily [place] 00 as needed [facility] for [facility] Itching. ketoconazol Yes [id number] Apply to [facility] e 2 % 5-10 area(s) ity of shampoo 00:00: once daily [place] 00 as needed [facility] for [facility] Itching. ketoconazol 0 Yes [id number] Apply to [facility] e 2 % 5-10 area(s) ity of shampoo 00:00: once daily [place] 00 as needed [facility] for [facility] Itching. ketoconazol Yes [id number] Apply to [facility] e 2 % 5-10 area(s) ity of shampoo 00:00: once daily [place] 00 as needed [facility] for [facility] Itching. ketoconazol Yes [id number] Apply to [facility] e 2 % 5-10 area(s) ity of shampoo 00:00: once daily [place] 00 as needed [facility] for [facility] Itching. ketoconazol Yes [id number] Apply to [facility] e 2 % 5-10 area(s) ity of shampoo 00:00: once daily [place] 00 as needed [facility] for [facility] Itching. ketoconazol Yes [id number] Apply to [facility] e 2 % 5-10 area(s) ity of shampoo 00:00: once daily [place] 00 as needed [facility] for [facility] Itching. ketoconazol 0 Yes [id number] Apply to [facility] e 2 % 5-10 area(s) ity of shampoo 00:00: once daily [place] 00 as needed [facility] for [facility] Itching. ketoconazol 0 Yes [id number] Apply to [facility] e 2 % 5-10 area(s) ity of shampoo 00:00: once daily [place] 00 as needed [facility] for [facility] Itching. ketoconazol 0 Yes [id number] Apply to [facility] e 2 % 5-10 area(s) ity of shampoo 00:00: once daily [place] 00 as needed [facility] for [facility] Itching. ketoconazol 0 Yes [id number] Apply to [facility] e 2 % 5-10 area(s) ity of shampoo 00:00: once daily [place] 00 as needed [facility] for [facility] Itching. ketoconazol 2022-0 Yes [id number] Apply to [facility] e 2 % 5-10 area(s) ity of shampoo 00:00: once daily [place] 00 as needed [facility] for [facility] Itching. ketoconazol 0 Yes [id number] Apply to [facility] e 2 % 5-10 area(s) ity of shampoo 00:00: once daily [place] 00 as needed [facility] for [facility] Itching. ketoconazol 0 Yes [id number] Apply to [facility] e 2 % 5-10 area(s) ity of shampoo 00:00: once daily [place] 00 as needed [facility] for [facility] Itching. ketoconazol 0 Yes [id number] Apply to [facility] e 2 % 5-10 area(s) ity of shampoo 00:00: once daily [place] 00 as needed [facility] for [facility] Itching. ketoconazol 0 Yes [id number] Apply to [facility] e 2 % 5-10 area(s) ity of shampoo 00:00: once daily [place] 00 as needed [facility] for [facility] Itching. ketoconazol 0 Yes [id number] Apply to [facility] e 2 % 5-10 area(s) ity of shampoo 00:00: once daily [place] 00 as needed [facility] for [facility] Itching. ketoconazol 0 Yes [id number] Apply to [facility] e 2 % 5-10 area(s) ity of shampoo 00:00: once daily [place] 00 as needed [facility] for [facility] Itching. ketoconazol 0 Yes [id number] [facility]:[place] [facility] for [facility] Itching. ketoconazol 0 Yes [id number] [facility] to [facility] 2 % 5-10 area(s) [facility] shampoo [facility]:[place] needed [facility] for [facility] Itching. ketoconazol 0 Yes [id number] Apply to [facility] 2 % 5-10 area(s) ity of shampoo 00:00: [place] as needed [facility] for Branch Itching. ketoconazol 0 Yes [id number] Apply to [facility] 2 % 5-10 area(s) ity of shampoo 00:00: [place] as needed [facility] for [facility] Itching. ketoconazol 0 Yes [id number] Apply to [facility] 2 % 5-10 area(s) ity of shampoo 00:00: [place] as needed [facility] for [facility] Itching. ketoconazol 0 Yes [id number] Apply to [facility] 2 % 5-10 area(s) ity of shampoo 00:00: [place] as needed [facility] for [facility] Itching. ketoconazol 0 Yes [id number] Apply to [facility] 2 % 5-10 area(s) ity of shampoo 00:00: [place] as needed [facility] for [facility] Itching. ketoconazol 0 Yes [id number] Apply to [facility] 2 % 5-10 area(s) ity of shampoo 00:00: [place] 00 as needed [facility] for [facility] Itching. ketoconazol 0 Yes [id number] Apply to [facility] 2 % 5-10 area(s) ity of shampoo 00:00: [place] 00 as needed [facility] for Branch Itching. ketoconazol 0 Yes [id number] Apply to [facility] 2 % 5-10 area(s) ity of shampoo 00:00: [place] 00 as needed [facility] for [facility] Itching. ketoconazol 0 Yes [id number] Apply to [facility] 2 % 5-10 area(s) ity of shampoo 00:00: [place] 00 as needed [facility] for Branch Itching. ketoconazol 0 Yes [id number] Apply to [facility] 2 % 5-10 area(s) ity of shampoo 00:00: [place] 00 as needed [facility] for Branch Itching. ketoconazol 0 Yes [id number] Apply to [facility] 2 % 5-10 area(s) ity of shampoo 00:00: [place] 00 as needed [facility] for Branch Itching. ketoconazol 2021-0 Yes [id number] Apply to [facility] 2 % 5-10 area(s) ity of shampoo 00:00: [place] needed [facility] for Branch Itching. METFORMIN 2022-0 Yes [id number] TAKE 1 [facility] 850 mg 5-02 TABLET BY ity of tablet 00:00: MOUTH THREE Medical TIMES Branch DAILY METFORMIN 2022-0 Yes [id number] TAKE 1 [facility] 850 mg 5-02 TABLET BY ity of tablet 00:00: THREE Medical TIMES Branch DAILY METFORMIN 2022-0 Yes [id number] TAKE 1 [facility] 850 mg 5-02 TABLET BY ity of tablet 00:00: MOUTH THREE Medical TIMES Branch DAILY METFORMIN 2022-0 Yes [id number] TAKE 1 [facility] 850 mg 5-02 TABLET BY ity of tablet 00:00: THREE Medical TIMES Branch DAILY METFORMIN 2022-0 Yes [id number] TAKE 1 [facility] 850 mg 5-02 TABLET BY ity of tablet 00:00: THREE Medical TIMES Branch DAILY METFORMIN 2022-0 Yes [id number] TAKE 1 [facility] 850 mg 5-02 TABLET BY ity of tablet 00:00: MOUTH THREE Medical TIMES Branch DAILY METFORMIN 2022-0 Yes [id number] TAKE 1 [facility] 850 mg 5-02 TABLET BY ity of tablet 00:00: THREE Medical TIMES Branch DAILY METFORMIN 2022-0 Yes [id number] TAKE 1 [facility] 850 mg 5-02 TABLET BY ity of tablet 00:00: THREE Medical TIMES Branch DAILY METFORMIN 2022-0 Yes [id number] TAKE 1 [facility] 850 mg 5-02 TABLET BY ity of tablet 00:00: THREE Medical TIMES Branch DAILY METFORMIN 2022-0 Yes [id number] TAKE 1 [facility] 850 mg 5-02 TABLET BY ity of tablet 00:00: MOUTH THREE Medical TIMES Branch DAILY METFORMIN 2022-0 Yes [id number] TAKE 1 [facility] 850 mg 5-02 TABLET BY ity of tablet 00:00: MOUTH THREE Medical TIMES Branch DAILY METFORMIN 2022-0 Yes [id number] TAKE 1 [facility] 850 mg 5-02 TABLET BY ity of tablet 00:00: MOUTH THREE Medical TIMES Branch DAILY METFORMIN 2022-0 Yes [id number] TAKE 1 [facility] 850 mg 5-02 TABLET BY ity of tablet 00:00: MOUTH [place] 00 THREE Medical TIMES Branch DAILY METFORMIN 2022-0 Yes [id number] TAKE 1 [facility] 850 mg 5-02 TABLET BY ity of tablet 00:00: [facility] 00 THREE Medical TIMES Branch DAILY METFORMIN 2022-0 Yes [id number] TAKE 1 U nivers 850 mg 5-02 TABLET BY ity of tablet 00:00: [facility] 00 THREE Medical TIMES Branch DAILY METFORMIN 2022-0 Yes [id number] TAKE 1 [facility] 850 mg 5-02 TABLET BY ity of tablet 00:00: MOUTH [place] 00 THREE Medical TIMES Branch DAILY METFORMIN 2-0 Yes [id number] TAKE 1 [facility] 850 mg 5-02 TABLET BY ity of tablet 00:00: [facility] THREE Medical TIMES Branch DAILY METFORMIN 2-0 Yes [id number] TAKE 1 [facility] 850 mg 5-02 TABLET BY ity of tablet 00:00: [facility] 00 THREE Medical TIMES Branch DAILY METFORMIN 2-0 Yes [id number] TAKE 1 [facility] 850 mg 5-02 TABLET BY ity of tablet 00:00: [facility] 00 THREE Medical TIMES Branch DAILY METFORMIN 2-0 Yes [id number] TAKE 1 [facility] 850 mg 5-02 TABLET BY ity of tablet 00:00: [facility] 00 THREE Medical TIMES Branch DAILY METFORMIN 2022-0 2022- No [id number] TAKE 1 [facility] 850 mg 5-02 10-21 TABLET BY ity of tablet 00:00: 00:00 [facility] 00 :00 THREE Medical TIMES Branch DAILY METFORMIN 2022-0 2022- No [id number] TAKE 1 [facility] 850 mg 5-02 10-21 TABLET BY ity of tablet 00:00: 00:00 [facility] 00 :00 THREE Medical TIMES Branch DAILY METFORMIN 2022-0 2022- No [id number] TAKE 1 [facility] 850 mg 5-02 10-21 TABLET BY ity of tablet 00:00: 00:00 [facility] 00 :00 THREE Medical TIMES Branch DAILY METFORMIN 2022-0 2022- No [id number] TAKE 1 [facility] 850 mg 5-02 10-21 TABLET BY ity of tablet 00:00: 00:00 [facility] 00 :00 THREE Medical TIMES Branch DAILY lancets 33 2021-0 Yes Use as Unive rs gauge Misc 4-25 directed ity o f 00:00: twice a [place] 00 day for Medical E11.9 Branch lancets 33 2022-0 Yes Use as Unive rs gauge Misc 4-25 directed ity o f 00:00: twice a [place] 00 day for Medical E11.9 Branch lancets 33 2022-0 Yes Use as Unive rs gauge Misc 4-25 directed ity o f 00:00: twice a [place] 00 day for Medical E11.9 Branch lancets 33 2022-0 Yes Use as [facility] rs gauge Misc 4-25 directed ity o f 00:00: twice a [place] 00 day for Medical E11.9 Branch lancets 33 2-0 Yes Use as Un[facility] rs gauge Misc 4-25 directed ity o f 00:00: twice a [place] 00 day for Medical E11.9 Branch lancets 33 2-0 Yes Use as Unive rs gauge Misc 4-25 directed ity o f 00:00: twice a [place] 00 day for Medical E11.9 Branch lancets 33 2-0 Yes Use as Unive rs gauge Misc 4-25 directed ity o f 00:00: twice a [place] 00 day for Medical E11.9 Branch lancets 33 2-0 Yes Use as Unive rs gauge Misc 4-25 directed ity o f 00:00: twice a [place] 00 day for Medical E11.9 Branch lancets 33 2-0 Yes Use as Un[facility] rs gauge Misc 4-25 directed ity o f 00:00: twice a [place] 00 day for Medical E11.9 Branch lancets 33 2-0 Yes Use as Un[facility] rs gauge Misc 4-25 directed ity o f 00:00: twice a [place] 00 day for Medical E11.9 Branch lancets 33 2-0 Yes Use as Unive rs gauge Misc 4-25 directed ity o f 00:00: twice a [place] 00 day for Medical E11.9 Branch lancets 33 2-0 Yes Use as Un[facility] rs gauge Misc 4-25 directed ity o f 00:00: twice a [place] 00 day for Medical E11.9 Branch lancets 33 2-0 Yes Use as Unive rs gauge Misc 4-25 directed ity o f 00:00: twice a [place] 00 day for Medical E11.9 Branch lancets 33 2-0 Yes Use as Unive rs gauge Misc 4-25 directed ity o f 00:00: twice a [place] 00 day for Medical E11.9 Branch lancets 33 2-0 Yes Use as Unive rs gauge Misc 4-25 directed ity o f 00:00: twice a [place] 00 day for Medical E11.9 Branch lancets 33 2-0 Yes Use as [facility]ive rs gauge Misc 4-25 directed ity o f 00:00: twice a [place] 00 day for Medical E11.9 Branch lancets 33 2-0 Yes Use as [facility]ive rs gauge Misc 4-25 directed ity o f 00:00: twice a [place] 00 day for Medical E11.9 Branch lancets 33 2-0 Yes Use as Unive rs gauge Misc 4-25 directed ity o f 00:00: twice a [place] 00 day for Medical E11.9 Branch lancets 33 2-0 Yes Use as Unive rs gauge Misc 4-25 directed ity o f 00:00: twice a [place] 00 day for Medical E11.9 Branch lancets 33 2021-0 Yes Use as Unive rs gauge Misc 4-25 directed ity o f 00:00: twice a [place] 00 day for Medical E11.9 Branch lancets 33 2-0 Yes Use as Unive rs gauge Misc 4-25 directed ity o f 00:00: twice a [place] 00 day for Medical E11.9 Branch lancets 33 2-0 Yes Use as Unive rs gauge Misc 4-25 directed ity o f 00:00: twice a [place] 00 day for Medical E11.9 Branch lancets 33 2-0 Yes Use as Unive rs gauge Misc 4-25 directed ity o f 00:00: twice a [place] 00 day for Medical E11.9 Branch lancets 33 2-0 Yes Use as Unive rs gauge Misc 4-25 directed ity o f 00:00: twice a [place] 00 day for Medical E11.9 Branch lancets 33 2-0 Yes Use as [facility] rs gauge Misc 4-25 directed ity o f 00:00: twice a [place] 00 day for Medical E11.9 Branch lancets 33 2-0 Yes Use as Unive rs gauge Misc 4-25 directed ity o f 00:00: twice a [place] 00 day for Medical E11.9 Branch lancets 33 2-0 Yes Use as Un[facility] rs gauge Misc 4-25 directed ity o f 00:00: twice a [place] 00 day for Medical E11.9 Branch lancets 33 2-0 Yes Use as [facility]ive rs gauge Misc 4-25 directed ity o f 00:00: twice a [place] 00 day for Medical E11.9 Branch lancets 33 2-0 Yes Use as Unive rs gauge Misc 4-25 directed ity o f 00:00: twice a [place] 00 day for Medical E11.9 Branch lancets 33 2-0 Yes Use as [facility]ive rs gauge Misc 4-25 directed ity o f 00:00: twice a [place] 00 day for Medical E11.9 Branch lancets 33 2-0 Yes Use as Unive rs gauge Misc 4-25 directed ity o f 00:00: twice a [place] 00 day for Medical E11.9 Branch lancets 33 2-0 Yes Use as Unive rs gauge Misc 4-25 directed ity o f 00:00: twice a [place] 00 day for Medical E11.9 Branch lancets 33 2021-0 Yes Use as Unive rs gauge Misc 4-25 directed ity o f 00:00: twice a [place] 00 day for Medical E11.9 Branch lancets 33 2-0 Yes Use as Unive rs gauge Misc 4-25 directed ity o f 00:00: twice a [place] 00 day for Medical E11.9 Branch lancets 33 2-0 Yes Use as Unive rs gauge Misc 4-25 directed ity o f 00:00: twice a [place] 00 day for Medical E11.9 Branch lancets 33 2-0 Yes Use as Unive rs gauge Misc 4-25 directed ity o f 00:00: twice a [place] 00 day for Medical E11.9 Branch lancets 33 2-0 Yes Use as Unive rs gauge Misc 4-25 directed ity o f 00:00: twice a [place] 00 day for Medical E11.9 Branch lancets 33 2-0 Yes Use as Unive rs gauge Misc 4-25 directed ity o f 00:00: twice a [place] 00 day for Medical E11.9 Branch lancets 33 2-0 Yes Use as Unive rs gauge Misc 4-25 directed ity o f 00:00: twice a [place] 00 day for Medical E11.9 Branch lancets 33 2-0 Yes Use as Unive rs gauge Misc 4-25 directed ity o f 00:00: twice a [place] 00 day for Medical E11.9 Branch lancets 33 2-0 Yes Use as Unive rs gauge Misc 4-25 directed ity o f 00:00: twice a [place] 00 day for Medical E11.9 Branch lancets 33 2-0 Yes Use as Unive rs gauge Misc 4-25 directed ity o f 00:00: twice a [place] 00 day for Medical E11.9 Branch lancets 33 2-0 Yes Use as Unive rs gauge Misc 4-25 directed ity o f 00:00: twice a [place] 00 day for Medical E11.9 Branch lancets 33 2-0 Yes Use as Unive rs gauge Misc 4-25 directed ity o f 00:00: twice a [place] 00 day for Medical E11.9 Branch lancets 33 2-0 Yes Use as Unive rs gauge Misc 4-25 directed ity o f 00:00: twice a [place] 00 day for Medical E11.9 Branch lancets 33 2-0 Yes Use as Unive rs gauge Misc 4-25 directed ity o f 00:00: twice a [place] 00 day for Medical E11.9 Branch lancets 33 2-0 Yes Use as Unive rs gauge Misc 4-25 directed ity o f 00:00: twice a [place] 00 day for Medical E11.9 Branch lancets 33 2-0 Yes Use as Unive rs gauge Misc 4-25 directed ity o f 00:00: twice a [place] 00 day for Medical E11.9 Branch lancets 33 2-0 Yes Use as Unive rs gauge Misc 4-25 directed ity o f 00:00: twice a [place] 00 day for Medical E11.9 Branch lancets 33 2-0 Yes Use as Unive rs gauge Misc 4-25 directed ity o f 00:00: twice a [place] 00 day for Medical E11.9 Branch lancets 33 2-0 Yes Use as Unive rs gauge Misc 4-25 directed ity o f 00:00: twice a [place] 00 day for Medical E11.9 Branch lancets 33 2-0 Yes Use as Unive rs gauge Misc 4-25 directed ity o f 00:00: twice a [place] 00 day for Medical E11.9 Branch lancets 33 2-0 Yes Use as Unive rs gauge Misc 4-25 directed ity o f 00:00: twice a [place] 00 day for Medical E11.9 Branch lancets 33 2-0 Yes Use as Unive rs gauge Misc 4-25 directed ity o f 00:00: twice a [place] 00 day for Medical E11.9 Branch lancets 33 2-0 Yes Use as Unive rs gauge Misc 4-25 directed ity o f 00:00: twice a [place] 00 day for Medical E11.9 Branch lancets 33 2-0 Yes Use as Unive rs gauge Misc 4-25 directed ity o f 00:00: twice a [place] 00 day for Medical E11.9 Branch lancets 33 2021-0 Yes Use as Unive rs gauge Misc 4-25 directed ity o f 00:00: twice a [place] 00 day for Medical E11.9 Branch lancets 33 2021-0 Yes Use as Unive rs gauge Misc 4-25 directed ity o f 00:00: twice a [place] 00 day for Medical E11.9 Branch lancets 33 2021-0 Yes Use as Unive rs gauge Misc 4-25 directed ity o f 00:00: twice a [place] 00 day for Medical E11.9 Branch lancets 33 2-0 Yes Use as Unive rs gauge Misc 4-25 directed ity o f 00:00: twice a [place] 00 day for Medical E11.9 Branch lancets 33 2-0 Yes Use as Unive rs gauge Misc 4-25 directed ity o f 00:00: twice a [place] 00 day for Medical E11.9 Branch lancets 33 2-0 Yes Use as Unive rs gauge Misc 4-25 directed ity o f 00:00: twice a [place] 00 day for Medical E11.9 Branch lancets 33 2-0 Yes Use as Unive rs gauge Misc 4-25 directed ity o f 00:00: twice a [place] 00 day for Medical E11.9 Branch lancets 33 2-0 Yes Use as Unive rs gauge Misc 4-25 directed ity o f 00:00: twice a [place] 00 day for Medical E11.9 Branch lancets 33 2-0 Yes Use as Unive rs gauge Misc 4-25 directed ity o f 00:00: twice a [place] 00 day for Medical E11.9 Branch lancets 33 2-0 Yes Use as Unive rs gauge Misc 4-25 directed ity o f 00:00: twice a [place] 00 day for Medical E11.9 Branch lancets 33 2-0 Yes Use as Unive rs gauge Misc 4-25 directed ity o f 00:00: twice a [place] 00 day for Medical E11.9 Branch lancets 33 2-0 Yes Use as Unive rs gauge Misc 4-25 directed ity o f 00:00: twice a [place] 00 day for Medical E11.9 Branch lancets 33 2021-0 Yes Use as Unive rs gauge Misc 4-25 directed ity o f 00:00: twice a [place] 00 day for Medical E11.9 Branch lancets 33 2021-0 Yes Use as Unive rs gauge Misc 4-25 directed ity o f 00:00: twice a [place] 00 day for Medical E11.9 Branch gabapentin 2022-0 Yes [id number] TAKE 1 [facility] 300 mg 4-11 CAPSULE BY ity of capsule 00:00: MOUTH FOUR [place] 00 TIMES Medical DAILY Branch gabapentin 2022-0 Yes [id number] TAKE 1 [facility] 300 mg 4-11 CAPSULE BY ity of capsule 00:00: MOUTH FOUR [place] 00 TIMES Medical DAILY Branch gabapentin 2022-0 Yes [id number] TAKE 1 [facility] 300 mg 4-11 CAPSULE BY ity of capsule 00:00: MOUTH FOUR [place] 00 TIMES Medical DAILY Branch gabapentin 2022-0 Yes [id number] TAKE 1 [facility] 300 mg 4-11 CAPSULE BY ity of capsule 00:00: MOUTH FOUR [place] 00 TIMES Medical DAILY Branch gabapentin 2022-0 Yes [id number] TAKE 1 [facility] 300 mg 4-11 CAPSULE BY ity of capsule 00:00: MOUTH FOUR [place] 00 TIMES Medical DAILY Branch gabapentin 2022-0 Yes [id number] TAKE 1 [facility] 300 mg 4-11 CAPSULE BY ity of capsule 00:00: MOUTH FOUR [place] 00 TIMES Medical DAILY Branch gabapentin 2022-0 Yes [id number] TAKE 1 [facility] 300 mg 4-11 CAPSULE BY ity of capsule 00:00: MOUTH FOUR [place] 00 TIMES Medical DAILY Branch gabapentin 2022-0 Yes [id number] TAKE 1 [facility] 300 mg 4-11 CAPSULE BY ity of capsule 00:00: MOUTH FOUR [place] 00 TIMES Medical DAILY Branch gabapentin 2022-0 Yes [id number] TAKE 1 [facility] 300 mg 11-11 CAPSULE BY ity of capsule 00:00: MOUTH FOUR [place] 00 TIMES Medical DAILY Branch gabapentin 2021-0 2021- No [id number] TAKE 1 [facility] 300 mg 4-04-29 CAPSULE BY ity of capsule 00:00: 00:00 MOUTH FOUR [place] as 00 :00 TIMES Medical DAILY Branch TRUE METRIX 2021-0 Yes [id number] Use as [facility] GLUCOSE 3-16 directed ity of METER Kit 00:00: for 4 [place] times a Medical day Branch glucose check, ICD E11.9 TRUE METRIX 2021-0 Yes [id number] Use as [facility] GLUCOSE 3-16 directed ity of TEST STRIP 00:00: to check [place] as strip 00 blood Medical sugar QID Branch DX: E11.9 TRUE METRIX 2021-0 Yes [id number] Use as [facility] GLUCOSE 3-16 directed ity of METER Kit 00:00: for 4 [place] times a Medical day Branch glucose check, ICD E11.9 TRUE METRIX 2021-0 Yes [id number] Use as [facility] GLUCOSE 3-16 directed ity of TEST STRIP 00:00: to check [place] as strip 00 blood Medical sugar QID Branch DX: E11.9 TRUE METRIX 2021-0 Yes [id number] Use as [facility] GLUCOSE 3-16 directed ity of METER Kit 00:00: for 4 [place] times a Medical day Branch glucose check, ICD E11.9 TRUE METRIX 2-0 Yes [id number] Use as [facility] GLUCOSE 3-16 directed ity of TEST STRIP 00:00: to check [place] as strip 00 blood Medical sugar QID Branch DX: E11.9 TRUE METRIX 2022-0 Yes [id number] Use as [facility] GLUCOSE 3-16 directed ity of METER Kit 00:00: for 4 [place] times a Medical day Branch glucose check, ICD E11.9 TRUE METRIX 2022-0 Yes [id number] Use as [facility] GLUCOSE 3-16 directed ity of TEST STRIP 00:00: to check [place] as strip 00 blood Medical sugar QID Branch DX: E11.9 TRUE METRIX 2022-0 Yes [id number] Use as [facility] GLUCOSE 3-16 directed ity of METER Kit 00:00: for 4 [place] times a Medical day Branch glucose check, ICD E11.9 TRUE METRIX 2022-0 Yes [id number] Use as [facility] GLUCOSE 3-16 directed ity of TEST STRIP 00:00: to check [place] as strip 00 blood Medical sugar QID Branch DX: E11.9 TRUE METRIX 2022-0 Yes [id number] Use as [facility] GLUCOSE 3-16 directed ity of METER Kit 00:00: for 4 [place] 00 times a Medical day Branch glucose check, ICD E11.9 TRUE METRIX 2022-0 Yes [id number] Use as [facility] GLUCOSE 3-16 directed ity of TEST STRIP 00:00: to check [place] as strip 00 blood Medical sugar QID Branch DX: E11.9 TRUE METRIX 2022-0 Yes [id number] Use as [facility] GLUCOSE 3-16 directed ity of METER Kit 00:00: for 4 [place] 00 times a Medical day Branch glucose check, ICD E11.9 TRUE METRIX 2-0 Yes [id number] Use as [facility] GLUCOSE 3-16 directed ity of TEST STRIP 00:00: to check [place] as strip 00 blood Medical sugar QID Branch DX: E11.9 TRUE METRIX 2-0 Yes [id number] Use as [facility] GLUCOSE 3-16 directed ity of METER Kit 00:00: for 4 [place] 00 times a Medical day Branch glucose check, ICD E11.9 TRUE METRIX 2022-0 Yes [id number] Use as [facility] GLUCOSE 3-16 directed ity of TEST STRIP 00:00: to check [place] as strip 00 blood Medical sugar QID Branch DX: E11.9 TRUE METRIX 2022-0 Yes [id number] Use as [facility] GLUCOSE 3-16 directed ity of METER Kit 00:00: for 4 [place] 00 times a Medical day Branch glucose check, ICD E11.9 TRUE METRIX 2022-0 Yes [id number] Use as [facility] GLUCOSE 3-16 directed ity of TEST STRIP 00:00: to check [place] as strip 00 blood Medical sugar QID Branch DX: E11.9 TRUE METRIX 2022-0 Yes [id number] Use as [facility] GLUCOSE 3-16 directed ity of METER Kit 00:00: for 4 [place] 00 times a Medical day Branch glucose check, ICD E11.9 TRUE METRIX 2022-0 Yes [id number] Use as Univers GLUCOSE 3-16 directed ity of TEST STRIP 00:00: to check [place] as strip 00 blood Medical sugar QID Branch DX: E11.9 TRUE METRIX 2022-0 Yes [id number] Use as Univers GLUCOSE 3-16 directed ity of METER Kit 00:00: for 4 [place] 00 times a Medical day Branch glucose check, ICD E11.9 TRUE METRIX 2022-0 Yes [id number] Use as [facility] GLUCOSE 3-16 directed ity of TEST STRIP 00:00: to check [place] as strip 00 blood Medical sugar QID Branch DX: E11.9 TRUE METRIX 2022-0 Yes [id number] Use as [facility] GLUCOSE 3-16 directed ity of METER Kit 00:00: for 4 [place] 00 times a Medical day Branch glucose check, ICD E11.9 TRUE METRIX 2022-0 Yes [id number] Use as [facility] GLUCOSE 3-16 directed ity of TEST STRIP 00:00: to check [place] as strip 00 blood Medical sugar QID Branch DX: E11.9 TRUE METRIX 2022-0 Yes [id number] Use as Univers GLUCOSE 3-16 directed ity of METER Kit 00:00: for 4 [place] 00 times a Medical day Branch glucose check, ICD E11.9 TRUE METRIX 2-0 Yes [id number] Use as [facility] GLUCOSE 3-16 directed ity of TEST STRIP 00:00: to check [place] as strip 00 blood Medical sugar QID Branch DX: E11.9 TRUE METRIX 2022-0 Yes [id number] Use as Univers GLUCOSE 3-16 directed ity of METER Kit 00:00: for 4 [place] 00 times a Medical day Branch glucose check, ICD E11.9 TRUE METRIX 2022-0 Yes [id number] Use as Univers GLUCOSE 3-16 directed ity of TEST STRIP 00:00: to check [place] as strip 00 blood Medical sugar QID Branch DX: E11.9 TRUE METRIX 2022-0 Yes [id number] Use as [facility] GLUCOSE 3-16 directed ity of METER Kit 00:00: for 4 [place] 00 times a Medical day Branch glucose check, ICD E11.9 TRUE METRIX 2022-0 Yes [id number] Use as [facility] GLUCOSE 3-16 directed ity of TEST STRIP 00:00: to check [place] as strip 00 blood Medical sugar QID Branch DX: E11.9 TRUE METRIX 2022-0 Yes [id number] Use as Univers GLUCOSE 3-16 directed ity of METER Kit 00:00: for 4 [place] 00 times a Medical day Branch glucose check, ICD E11.9 TRUE METRIX 2022-0 Yes [id number] Use as [facility] GLUCOSE 3-16 directed ity of TEST STRIP 00:00: to check [place] as strip 00 blood Medical sugar QID Branch DX: E11.9 TRUE METRIX 2022-0 Yes [id number] Use as [facility] GLUCOSE 3-16 directed ity of METER Kit 00:00: for 4 [place] 00 times a Medical day Branch glucose check, ICD E11.9 TRUE METRIX 2022-0 Yes [id number] Use as [facility] GLUCOSE 3-16 directed ity of TEST STRIP 00:00: to check [place] as strip 00 blood Medical sugar QID Branch DX: E11.9 TRUE METRIX 2022-0 Yes [id number] Use as Univers GLUCOSE 3-16 directed ity of METER Kit 00:00: for 4 [place] 00 times a Medical day Branch glucose check, ICD E11.9 TRUE METRIX 2-0 Yes [id number] Use as [facility] GLUCOSE 3-16 directed ity of TEST STRIP 00:00: to check [place] as strip 00 blood Medical sugar QID Branch DX: E11.9 TRUE METRIX 2-0 Yes [id number] Use as [facility] GLUCOSE 3-16 directed ity of METER Kit 00:00: for 4 [place] 00 times a Medical day Branch glucose check, ICD E11.9 TRUE METRIX 2-0 Yes [id number] Use as [facility] GLUCOSE 3-16 directed ity of TEST STRIP 00:00: to check [place] as strip 00 blood Medical sugar QID Branch DX: E11.9 TRUE METRIX 2-0 Yes [id number] Use as [facility] GLUCOSE 3-16 directed ity of METER Kit 00:00: for 4 [place] 00 times a Medical day Branch glucose check, ICD E11.9 TRUE METRIX 2022-0 Yes [id number] Use as [facility] GLUCOSE 3-16 directed ity of TEST STRIP 00:00: to check [place] as strip 00 blood Medical sugar QID Branch DX: E11.9 TRUE METRIX 2022-0 Yes [id number] Use as [facility] GLUCOSE 3-16 directed ity of METER Kit 00:00: for 4 [place] 00 times a Medical day Branch glucose check, ICD E11.9 TRUE METRIX 2022-0 Yes [id number] Use as [facility] GLUCOSE 3-16 directed ity of TEST STRIP 00:00: to check [place] as strip 00 blood Medical sugar QID Branch DX: E11.9 TRUE METRIX 2022-0 Yes [id number] Use as [facility] GLUCOSE 3-16 directed ity of METER Kit 00:00: for 4 [place] 00 times a Medical day Branch glucose check, ICD E11.9 TRUE METRIX 2022-0 Yes [id number] Use as [facility] GLUCOSE 3-16 directed ity of TEST STRIP 00:00: to check [place] as strip 00 blood Medical sugar QID Branch DX: E11.9 TRUE METRIX 2022-0 Yes [id number] Use as [facility] GLUCOSE 3-16 directed ity of METER Kit 00:00: for 4 [place] 00 times a Medical day Branch glucose check, ICD E11.9 TRUE METRIX 2022-0 Yes [id number] Use as [facility] GLUCOSE 3-16 directed ity of TEST STRIP 00:00: to check [place] as strip 00 blood Medical sugar QID Branch DX: E11.9 TRUE METRIX 2-0 Yes [id number] Use as [facility] GLUCOSE 3-16 directed ity of METER Kit 00:00: for 4 [place] 00 times a Medical day Branch glucose check, ICD E11.9 TRUE METRIX 2-0 Yes [id number] Use as [facility] GLUCOSE 3-16 directed ity of TEST STRIP 00:00: to check [place] as strip 00 blood Medical sugar QID Branch DX: E11.9 TRUE METRIX 2022-0 Yes [id number] Use as [facility] GLUCOSE 3-16 directed ity of METER Kit 00:00: for 4 [place] 00 times a Medical day Branch glucose check, ICD E11.9 TRUE METRIX 2-0 Yes [id number] Use as [facility] GLUCOSE 3-16 directed ity of TEST STRIP 00:00: to check [place] as strip 00 blood Medical sugar QID Branch DX: E11.9 TRUE METRIX 2022-0 Yes [id number] Use as [facility] GLUCOSE 3-16 directed ity of METER Kit 00:00: for 4 [place] 00 times a Medical day Branch glucose check, ICD E11.9 TRUE METRIX 2022-0 Yes [id number] Use as [facility] GLUCOSE 3-16 directed ity of TEST STRIP 00:00: to check [place] as strip 00 blood Medical sugar QID Branch DX: E11.9 TRUE METRIX 2022-0 Yes [id number] [facility] GLUCOSE 3-16 directed ity of METER Kit 00:00: for 4 [place] 00 times a Medical day Branch glucose check, ICD E11.9 TRUE METRIX 2022-0 Yes [id number] Use as [facility] GLUCOSE 3-16 directed ity of TEST STRIP 00:00: to check [place] as strip 00 blood Medical sugar QID Branch DX: E11.9 TRUE METRIX 2022-0 Yes [id number] Use as [facility] GLUCOSE 3-16 directed ity of METER Kit 00:00: for 4 [place] 00 times a Medical day Branch glucose check, ICD E11.9 TRUE METRIX 2022-0 Yes [id number] Use as [facility] GLUCOSE 3-16 directed ity of TEST STRIP 00:00: to check [place] as strip 00 blood Medical sugar QID Branch DX: E11.9 TRUE METRIX 2022-0 Yes [id number] Use as [facility] GLUCOSE 3-16 directed ity of METER Kit 00:00: for 4 [place] 00 times a Medical day Branch glucose check, ICD E11.9 TRUE METRIX 2-0 Yes [id number] Use as [facility] GLUCOSE 3-16 directed ity of TEST STRIP 00:00: to check [place] as strip 00 blood Medical sugar QID Branch DX: E11.9 TRUE METRIX 2-0 Yes [id number] Use as [facility] GLUCOSE 3-16 directed ity of METER Kit 00:00: for 4 [place] 00 times a Medical day Branch glucose check, ICD E11.9 TRUE METRIX 2-0 Yes [id number] Use as [facility] GLUCOSE 3-16 directed ity of TEST STRIP 00:00: to check [place] as strip 00 blood Medical sugar QID Branch DX: E11.9 TRUE METRIX 2022-0 Yes [id number] Use as [facility] GLUCOSE 3-16 directed ity of METER Kit 00:00: for 4 [place] 00 times a Medical day Branch glucose check, ICD E11.9 TRUE METRIX 2022-0 Yes [id number] Use as [facility] GLUCOSE 3-16 directed ity of TEST STRIP 00:00: to check [place] as strip 00 blood Medical sugar QID Branch DX: E11.9 TRUE METRIX 2022-0 Yes [id number] Use as [facility] GLUCOSE 3-16 directed ity of METER Kit 00:00: for 4 [place] 00 times a Medical day Branch glucose check, ICD E11.9 TRUE METRIX 2022-0 Yes [id number] Use as [facility] GLUCOSE 3-16 directed ity of TEST STRIP 00:00: to check [place] as strip 00 blood Medical sugar QID Branch DX: E11.9 TRUE METRIX 2022-0 Yes [id number] Use as [facility] GLUCOSE 3-16 directed ity of METER Kit 00:00: for 4 [place] 00 times a Medical day Branch glucose check, ICD E11.9 TRUE METRIX 2022-0 Yes [id number] Use as [facility] GLUCOSE 3-16 directed ity of TEST STRIP 00:00: to check [place] as strip 00 blood Medical sugar QID Branch DX: E11.9 TRUE METRIX 2022-0 Yes [id number] Use as [facility] GLUCOSE 3-16 directed ity of METER Kit 00:00: for 4 [place] 00 times a Medical day Branch glucose check, ICD E11.9 TRUE METRIX 2022-0 Yes [id number] Use as [facility] GLUCOSE 3-16 directed ity of TEST STRIP 00:00: to check [place] as strip 00 blood Medical sugar QID Branch DX: E11.9 TRUE METRIX 2-0 Yes [id number] Use as [facility] GLUCOSE 3-16 directed ity of METER Kit 00:00: for 4 [place] 00 times a Medical day Branch glucose check, ICD E11.9 TRUE METRIX 2-0 Yes [id number] Use as [facility] GLUCOSE 3-16 directed ity of TEST STRIP 00:00: to check [place] as strip 00 blood Medical sugar QID Branch DX: E11.9 TRUE METRIX 2022-0 Yes [id number] Use as [facility] GLUCOSE 3-16 directed ity of METER Kit 00:00: for 4 [place] 00 times a Medical day Branch glucose check, ICD E11.9 TRUE METRIX 2-0 Yes [id number] Use as [facility] GLUCOSE 3-16 directed ity of TEST STRIP 00:00: to check [place] as strip 00 blood Medical sugar QID Branch DX: E11.9 TRUE METRIX 2022-0 Yes [id number] Use as [facility] GLUCOSE 3-16 directed ity of METER Kit 00:00: for 4 [place] 00 times a Medical day Branch glucose check, ICD E11.9 TRUE METRIX 2022-0 Yes [id number] Use as [facility] GLUCOSE 3-16 directed ity of TEST STRIP 00:00: to check [place] as strip 00 blood Medical sugar QID Branch DX: E11.9 TRUE METRIX 2022-0 Yes [id number] Use as [facility] GLUCOSE 3-16 directed ity of METER Kit 00:00: for 4 [place] 00 times a Medical day Branch glucose check, ICD E11.9 TRUE METRIX 2022-0 Yes [id number] Use as [facility] GLUCOSE 3-16 directed ity of TEST STRIP 00:00: to check [place] as strip 00 blood Medical sugar QID Branch DX: E11.9 TRUE METRIX 2022-0 Yes [id number] Use as [facility] GLUCOSE 3-16 directed ity of METER Kit 00:00: for 4 [place] 00 times a Medical day Branch glucose check, ICD E11.9 TRUE METRIX 2022-0 Yes [id number] Use as [facility] GLUCOSE 3-16 directed ity of TEST STRIP 00:00: to check [place] as strip 00 blood Medical sugar QID Branch DX: E11.9 TRUE METRIX 2022-0 Yes [id number] Use as [facility] GLUCOSE 3-16 directed ity of METER Kit 00:00: for 4 [place] 00 times a Medical day Branch glucose check, ICD E11.9 TRUE METRIX 2022-0 Yes [id number] Use as [facility] GLUCOSE 3-16 directed ity of TEST STRIP 00:00: to check [place] as strip 00 blood Medical sugar QID Branch DX: E11.9 TRUE METRIX 2022-0 Yes [id number] Use as [facility] GLUCOSE 3-16 directed ity of METER Kit 00:00: for 4 [place] 00 times a Medical day Branch glucose check, ICD E11.9 TRUE METRIX 2022-0 Yes [id number] Use as [facility] GLUCOSE 3-16 directed ity of TEST STRIP 00:00: to check [place] as strip 00 blood Medical sugar QID Branch DX: E11.9 TRUE METRIX 2022-0 Yes [id number] Use as [facility] GLUCOSE 3-16 directed ity of METER Kit 00:00: for 4 [place] 00 times a Medical day Branch glucose check, ICD E11.9 TRUE METRIX 2022-0 Yes [id number] Use as [facility] GLUCOSE 3-16 directed ity of TEST STRIP 00:00: to check [place] as strip 00 blood Medical sugar QID Branch DX: E11.9 TRUE METRIX 2022-0 Yes [id number] Use as [facility] GLUCOSE 3-16 directed ity of METER Kit 00:00: for 4 [place] 00 times a Medical day Branch glucose check, ICD E11.9 TRUE METRIX 2022-0 Yes [id number] Use as [facility] GLUCOSE 3-16 directed ity of TEST STRIP 00:00: to check [place] as strip 00 blood Medical sugar QID Branch DX: E11.9 TRUE METRIX 2022-0 Yes [id number] Use as [facility] GLUCOSE 3-16 directed ity of METER Kit 00:00: for 4 [place] 00 times a Medical day Branch glucose check, ICD E11.9 TRUE METRIX 2022-0 Yes [id number] Use as [facility] GLUCOSE 3-16 directed ity of TEST STRIP 00:00: to check [place] as strip 00 blood Medical sugar D Branch DX: E11.9 TRUE METRIX 2022-0 Yes [id number] Use as [facility] GLUCOSE 3-16 directed ity of METER Kit 00:00: for 4 [place] 00 times a Medical day Branch glucose check, ICD E11.9 TRUE METRIX 2022-0 Yes [id number] Use as [facility] GLUCOSE 3-16 directed ity of TEST STRIP 00:00: to check [place] as strip 00 blood Medical sugar D Branch DX: E11.9 TRUE METRIX 2022-0 Yes [id number] Use as [facility] GLUCOSE 3-16 directed ity of METER Kit 00:00: for 4 [place] 00 times a Medical day Branch glucose check, ICD E11.9 TRUE METRIX 2-0 Yes [id number] Use as [facility] GLUCOSE 3-16 directed ity of TEST STRIP 00:00: to check [place] as strip 00 blood Medical sugar D Branch DX: E11.9 TRUE METRIX 2022-0 Yes [id number] Use as [facility] GLUCOSE 3-16 directed ity of METER Kit 00:00: for 4 [place] 00 times a Medical day Branch glucose check, ICD E11.9 TRUE METRIX 2022-0 Yes [id number] Use as [facility] GLUCOSE 3-16 directed ity of TEST STRIP 00:00: to check [place] as strip 00 blood Medical sugar D Branch DX: E11.9 TRUE METRIX 2022-0 Yes [id number] Use as [facility] GLUCOSE 3-16 directed ity of METER Kit 00:00: for 4 [place] 00 times a Medical day Branch glucose check, ICD E11.9 TRUE METRIX 2022-0 Yes [id number] Use as [facility] GLUCOSE 3-16 directed ity of TEST STRIP 00:00: to check [place] as strip 00 blood Medical sugar D Branch DX: E11.9 TRUE METRIX 2022-0 Yes [id number] Use as [facility] GLUCOSE 3-16 directed ity of METER Kit 00:00: for 4 [place] 00 times a Medical day Branch glucose check, ICD E11.9 TRUE METRIX 2022-0 Yes [id number] Use as [facility] GLUCOSE 3-16 directed ity of TEST STRIP 00:00: to check [place] as strip 00 blood Medical sugar QID Branch DX: E11.9 TRUE METRIX 2022-0 Yes [id number] Use as [facility] GLUCOSE 3-16 directed ity of METER Kit 00:00: for 4 [place] 00 times a Medical day Branch glucose check, ICD E11.9 TRUE METRIX 2022-0 Yes [id number] Use as [facility] GLUCOSE 3-16 directed ity of TEST STRIP 00:00: to check [place] as strip 00 blood Medical sugar QID Branch DX: E11.9 TRUE METRIX 2022-0 Yes [id number] Use as [facility] GLUCOSE 3-16 directed ity of METER Kit 00:00: for 4 [place] 00 times a Medical day Branch glucose check, ICD E11.9 TRUE METRIX 2-0 Yes [id number] Use as [facility] GLUCOSE 3-16 directed ity of TEST STRIP 00:00: to check [place] as strip 00 blood Medical sugar QID Branch DX: E11.9 TRUE METRIX 2-0 Yes [id number] Use as [facility] GLUCOSE 3-16 directed ity of METER Kit 00:00: for 4 [place] 00 times a Medical day Branch glucose check, ICD E11.9 TRUE METRIX 2-0 Yes [id number] Use as [facility] GLUCOSE 3-16 directed ity of TEST STRIP 00:00: to check [place] as strip 00 blood Medical sugar QID Branch DX: E11.9 TRUE METRIX 2022-0 Yes [id number] Use as [facility] GLUCOSE 3-16 directed ity of METER Kit 00:00: for 4 [place] 00 times a Medical day Branch glucose check, ICD E11.9 TRUE METRIX 2022-0 Yes [id number] Use as [facility] GLUCOSE 3-16 directed ity of TEST STRIP 00:00: to check [place] as strip 00 blood Medical sugar QID Branch DX: E11.9 TRUE MET[facility]X 2022-0 Yes [id number] Use as [facility] GLUCOSE 3-16 directed ity of METER Kit 00:00: for 4 [place] 00 times a Medical day Branch glucose check, ICD E11.9 TRUE METRIX 2022-0 Yes [id number] Use as [facility] GLUCOSE 3-16 directed ity of TEST STRIP 00:00: to check [place] as strip 00 blood Medical sugar QID Branch DX: E11.9 TRUE METRIX 2022-0 Yes [id number] Use as [facility] GLUCOSE 3-16 directed ity of METER Kit 00:00: for 4 [place] 00 times a Medical day Branch glucose check, ICD E11.9 TRUE METRIX 2022-0 Yes [id number] Use as [facility] GLUCOSE 3-16 directed ity of TEST STRIP 00:00: to check [place] as strip 00 blood Medical sugar D Branch DX: E11.9 TRUE MET[facility] 2022-0 Yes [id number] Use as [facility] GLUCOSE 3-16 directed ity of METER Kit 00:00: for 4 [place] times a Medical day Branch glucose check, ICD E11.9 TRUE METRIX 2022-0 Yes [id number] Use as [facility] GLUCOSE 3-16 directed ity of TEST STRIP 00:00: to check [place] as strip 00 blood Medical sugar D Branch DX: E11.9 TRUE METRIX 2-0 Yes [id number] Use as [facility] GLUCOSE 3-16 directed ity of METER Kit 00:00: for 4 [place] 00 times a Medical day Branch glucose check, ICD E11.9 TRUE METRIX 2-0 Yes [id number] Use as [facility] GLUCOSE 3-16 directed ity of TEST STRIP 00:00: to check [place] as strip 00 blood Medical sugar D Branch DX: E11.9 TRUE METRI[facility] 2022-0 Yes [id number] Use as [facility] GLUCOSE 3-16 directed ity of METER Kit 00:00: for 4 [place] 00 times a Medical day Branch glucose check, ICD E11.9 TRUE METRIX 2022-0 Yes [id number] Use as [facility] GLUCOSE 3-16 directed ity of TEST STRIP 00:00: to check [place] as strip 00 blood Medical sugar QID Branch DX: E11.9 TRUE METRIX 2022-0 Yes [id number] Use as [facility] GLUCOSE 3-16 directed ity of METER Kit 00:00: for 4 [place] 00 times a Medical day Branch glucose check, ICD E11.9 TRUE METRIX 2022-0 Yes [id number] Use as [facility] GLUCOSE 3-16 directed ity of TEST STRIP 00:00: to check [place] as strip 00 blood Medical sugar D Branch DX: E11.9 TRUE METRIX 2022-0 Yes [id number] Use as [facility] GLUCOSE 3-16 directed ity of METER Kit 00:00: for 4 [place] 00 times a Medical day Branch glucose check, ICD E11.9 TRUE METRIX 2022-0 Yes [id number] Use as [facility] GLUCOSE 3-16 directed ity of TEST STRIP 00:00: to check [place] as strip 00 blood Medical sugar QID Branch DX: E11.9 TRUE METRI[facility] 2022-0 Yes [id number] Use as [facility] GLUCOSE 3-16 directed ity of METER Kit 00:00: for 4 [place] 00 times a Medical day Branch glucose check, ICD E11.9 TRUE METRIX 2022-0 Yes [id number] Use as [facility] GLUCOSE 3-16 directed ity of TEST STRIP 00:00: to check [place] as strip 00 blood Medical sugar QID Branch DX: E11.9 TRUE METRIX 2022-0 Yes [id number] Use as [facility] GLUCOSE 3-16 directed ity of METER Kit 00:00: for 4 [place] 00 times a Medical day Branch glucose check, ICD E11.9 TRUE METRIX 2-0 Yes [id number] Use as [facility] GLUCOSE 3-16 directed ity of TEST STRIP 00:00: to check [place] as strip 00 blood Medical sugar QID Branch DX: E11.9 TRUE METRIX 2-0 Yes [id number] Use as [facility] GLUCOSE 3-16 directed ity of METER Kit 00:00: for 4 [place] 00 times a Medical day Branch glucose check, ICD E11.9 TRUE METRIX 2-0 Yes [id number] Use as [facility] GLUCOSE 3-16 directed ity of TEST STRIP 00:00: to check [place] as strip 00 blood Medical sugar QID Branch DX: E11.9 TRUE METRIX 2022-0 Yes [id number] Use as [facility] GLUCOSE 3-16 directed ity of METER Kit 00:00: for 4 [place] 00 times a Medical day Branch glucose check, ICD E11.9 TRUE METRI[facility] 2022-0 Yes [id number] Use as [facility] GLUCOSE 3-16 directed ity of TEST STRIP 00:00: to check [place] as strip 00 blood Medical sugar QID Branch DX: E11.9 TRUE METRI[facility] 2022-0 Yes [id number] Use as [facility] GLUCOSE 3-16 directed ity of METER Kit 00:00: for 4 [place] 00 times a Medical day Branch glucose check, ICD E11.9 TRUE METRI[facility] 2022-0 Yes [id number] Use as [facility] GLUCOSE 3-16 directed ity of TEST STRIP 00:00: to check [place] as strip 00 blood Medical sugar QID Branch DX: E11.9 TRUE METRIX 2021-0 Yes [id number] Use as [facility] GLUCOSE 3-16 directed ity of METER Kit 00:00: for 4 [place] times a Medical day Branch glucose check, ICD E11.9 TRUE METRIX 2021-0 Yes [id number] Use as [facility] GLUCOSE 3-16 directed ity of TEST STRIP 00:00: to check [place] as strip 00 blood Medical sugar QID Branch DX: E11.9 TRUE METRIX 2021-0 Yes [id number] Use as [facility] GLUCOSE 3-16 directed ity of METER Kit 00:00: for 4 [place] times a Medical day Branch glucose check, ICD E11.9 TRUE METRIX 2021-0 Yes [id number] Use as [facility] GLUCOSE 3-16 directed ity of TEST STRIP 00:00: to check [place] as strip 00 blood Medical sugar QID Branch DX: E11.9 TRUE METRIX 2021-0 Yes [id number] Use as [facility] GLUCOSE 3-16 directed ity of METER Kit 00:00: for 4 [place] times a Medical day Branch glucose check, ICD E11.9 TRUE METRIX 2021-0 Yes [id number] Use as [facility] GLUCOSE 3-16 directed ity of TEST STRIP 00:00: to check [place] as strip 00 blood Medical sugar QID Branch DX: E11.9 TRUE METRIX 2021-0 Yes [id number] Use as [facility] GLUCOSE 3-16 directed ity of METER Kit 00:00: for 4 [place] times a Medical day Branch glucose check, ICD E11.9 TRUE METRIX 2021-0 Yes [id number] Use as [facility] GLUCOSE 3-16 directed ity of TEST STRIP 00:00: to check [place] as strip 00 blood Medical sugar QID Branch DX: E11.9 TRUE METRIX 2021-0 Yes [id number] Use as [facility] GLUCOSE 3-16 directed ity of METER Kit 00:00: for 4 [place] times a Medical day Branch glucose check, ICD E11.9 TRUE METRIX 2021-0 Yes [id number] Use as [facility] GLUCOSE 3-16 directed ity of TEST STRIP 00:00: to check [place] as strip 00 blood Medical sugar QID Branch DX: E11.9 SPIRONOLACT 2021-0 Yes [id number] TAKE 1 [facility] ONE 25 mg 1-31 TABLET BY ity o f tablet 00:00: MOUTH [place] 00 TWICE Medical DAILY Branch FUROSEMIDE 2021-0 Yes TAKE 1 [facility] rs 80 mg 1-31 TABLET BY ity of tablet 00:00: MOUTH TWICE Medical DAILY Branch AMLODIPINE 2022-0 Yes [id number] 5mg TAKE 1 [facility] 5 mg tablet 1-31 TABLET BY ity of 00:00: MOUTH [place] DAILY Medical Branch SPIRONOLACT 2022-0 Yes [id number] TAKE 1 [facility] ONE 25 mg 1-31 TABLET BY ity o f tablet 00:00: MOUTH [place] TWICE Medical DAILY Branch FUROSEMIDE 2022-0 Yes TAKE 1 Unive rs 80 mg 1-31 TABLET BY ity of tablet 00:00: MOUTH TWICE Medical DAILY Branch AMLODIPINE 2-0 Yes [id number] 5mg TAKE 1 [facility] nivers 5 mg tablet 1-31 TABLET BY ity of 00:00: [facility] DAILY Medical Branch SPIRONOLACT 2-0 Yes [id number] TAKE 1 [facility] ONE 25 mg 1-31 TABLET BY ity o f tablet 00:00: [facility] TWICE Medical DAILY Branch FUROSEMIDE 2-0 Yes TAKE 1 Unive rs 80 mg 1-31 TABLET BY ity of tablet 00:00: [facility] TWICE Medical DAILY Branch AMLODIPINE 2-0 Yes [id number] 5mg TAKE 1 U nivers 5 mg tablet 1-31 TABLET BY ity of 00:00: [facility] DAILY Medical Branch SPIRONOLACT 2022-0 Yes [id number] TAKE 1 [facility] ONE 25 mg 1-31 TABLET BY ity o f tablet 00:00: [facility] TWICE Medical DAILY Branch FUROSEMIDE 2022-0 Yes TAKE 1 Unive rs 80 mg 1-31 TABLET BY ity of tablet 00:00: [facility] TWICE Medical DAILY Branch AMLODIPINE 2022-0 Yes [id number] 5mg TAKE 1 U nivers 5 mg tablet 1-31 TABLET BY ity of 00:00: [facility] DAILY Medical Branch SPIRONOLACT 2022-0 Yes [id number] TAKE 1 [facility] ONE 25 mg 1-31 TABLET BY ity o f tablet 00:00: [facility] TWICE Medical DAILY Branch FUROSEMIDE 2022-0 Yes TAKE 1 [facility] rs 80 mg 1-31 TABLET BY ity of tablet 00:00: [facility] TWICE Medical DAILY Branch AMLODIPINE 2022-0 Yes [id number] 5mg TAKE 1 U nivers 5 mg tablet 1-31 TABLET BY ity of 00:00: MOUTH DAILY Medical Branch SPIRONOLACT 2022-0 Yes [id number] TAKE 1 [facility] ONE 25 mg 1-31 TABLET BY ity o f tablet 00:00: MOUTH TWICE Medical DAILY Branch FUROSEMIDE 2022-0 Yes TAKE 1 [facility] rs 80 mg 1-31 TABLET BY ity of tablet 00:00: [facility] TWICE Medical DAILY Branch AMLODIPINE 2022-0 Yes [id number] 5mg TAKE 1 U nivers 5 mg tablet 1-31 TABLET BY ity of 00:00: MOUTH [place] DAILY Medical Branch SPIRONOLACT 2022-0 Yes [id number] TAKE 1 [facility] ONE 25 mg 1-31 TABLET BY ity o f tablet 00:00: [facility] TWICE Medical DAILY Branch FUROSEMIDE 2022-0 Yes TAKE 1 Unive rs 80 mg 1-31 TABLET BY ity of tablet 00:00: [facility] TWICE Medical DAILY Branch AMLODIPINE 2022-0 Yes [id number] 5mg TAKE 1 U nivers 5 mg tablet 1-31 TABLET BY ity of 00:00: [facility] DAILY Medical Branch SPIRONOLACT 2022-0 Yes [id number] TAKE 1 [facility] ONE 25 mg 1-31 TABLET BY ity o f tablet 00:00: [facility] TWICE Medical DAILY Branch FUROSEMIDE 2022-0 Yes TAKE 1 Unive rs 80 mg 1-31 TABLET BY ity of tablet 00:00: [facility] TWICE Medical DAILY Branch AMLODIPINE 2022-0 Yes [id number] 5mg TAKE 1 U nivers 5 mg tablet 1-31 TABLET BY ity of 00:00: [facility] DAILY Medical Branch SPIRONOLACT 2022-0 Yes [id number] TAKE 1 [facility] ONE 25 mg 1-31 TABLET BY ity o f tablet 00:00: [facility] TWICE Medical DAILY Branch FUROSEMIDE 2022-0 Yes TAKE 1 Unive rs 80 mg 1-31 TABLET BY ity of tablet 00:00: [facility] TWICE Medical DAILY Branch AMLODIPINE 2022-0 Yes [id number] 5mg TAKE 1 U nivers 5 mg tablet 1-31 TABLET BY ity of 00:00: [facility] DAILY Medical Branch SPIRONOLACT 2022-0 Yes [id number] TAKE 1 [facility] ONE 25 mg 1-31 TABLET BY ity o f tablet 00:00: [facility] TWICE Medical DAILY Branch FUROSEMIDE 2022-0 Yes TAKE 1 [facility]ive rs 80 mg 1-31 TABLET BY ity of tablet 00:00: MOUTH TWICE Medical DAILY Branch AMLODIPINE 2022-0 Yes [id number] 5mg TAKE 1 [facility] nivers 5 mg tablet 1-31 TABLET BY ity of 00:00: [facility] DAILY Medical Branch SPIRONOLACT 2022-0 Yes [id number] TAKE 1 [facility] ONE 25 mg 1-31 TABLET BY ity o f tablet 00:00: [facility] TWICE Medical DAILY Branch FUROSEMIDE 2022-0 Yes TAKE 1 [facility]ive rs 80 mg 1-31 TABLET BY ity of tablet 00:00: MOUTH TWICE Medical DAILY Branch AMLODIPINE 2022-0 Yes [id number] 5mg TAKE 1 U nivers 5 mg tablet 1-31 TABLET BY ity of 00:00: [facility] DAILY Medical Branch SPIRONOLACT 2022-0 Yes [id number] TAKE 1 [facility] ONE 25 mg 1-31 TABLET BY ity o f tablet 00:00: [facility] TWICE Medical DAILY Branch FUROSEMIDE 2022-0 Yes TAKE 1 Unive rs 80 mg 1-31 TABLET BY ity of tablet 00:00: [facility] TWICE Medical DAILY Branch AMLODIPINE 2022-0 Yes [id number] 5mg TAKE 1 U nivers 5 mg tablet 1-31 TABLET BY ity of 00:00: [facility] DAILY Medical Branch SPIRONOLACT 2022-0 Yes [id number] TAKE 1 [facility] ONE 25 mg 1-31 TABLET BY ity o f tablet 00:00: [facility] TWICE Medical DAILY Branch FUROSEMIDE 2022-0 Yes TAKE 1 Unive rs 80 mg 1-31 TABLET BY ity of tablet 00:00: [facility] TWICE Medical DAILY Branch AMLODIPINE 2022-0 Yes [id number] 5mg TAKE 1 U nivers 5 mg tablet 1-31 TABLET BY ity of 00:00: [facility] DAILY Medical Branch SPIRONOLACT 2022-0 Yes [id number] TAKE 1 [facility] ONE 25 mg 1-31 TABLET BY ity o f tablet 00:00: [facility] TWICE Medical DAILY Branch FUROSEMIDE 2022-0 Yes TAKE 1 Unive rs 80 mg 1-31 TABLET BY ity of tablet 00:00: [facility] TWICE Medical DAILY Branch AMLODIPINE 2022-0 Yes [id number] 5mg TAKE 1 U nivers 5 mg tablet 1-31 TABLET BY ity of 00:00: [facility] DAILY Medical Branch SPIRONOLACT 2022-0 Yes [id number] TAKE 1 [facility] ONE 25 mg 1-31 TABLET BY ity o f tablet 00:00: [facility] TWICE Medical DAILY Branch FUROSEMIDE 2022-0 Yes TAKE 1 Unive rs 80 mg 1-31 TABLET BY ity of tablet 00:00: [facility] TWICE Medical DAILY Branch AMLODIPINE 2022-0 Yes [id number] 5mg TAKE 1 U nivers 5 mg tablet 1-31 TABLET BY ity of 00:00: [facility] DAILY Medical Branch SPIRONOLACT 2022-0 Yes [id number] TAKE 1 [facility] ONE 25 mg 1-31 TABLET BY ity o f tablet 00:00: [facility] TWICE Medical DAILY Branch FUROSEMIDE 2022-0 Yes TAKE 1 Unive rs 80 mg 1-31 TABLET BY ity of tablet 00:00: [facility] TWICE Medical DAILY Branch AMLODIPINE 2022-0 Yes [id number] 5mg TAKE 1 U nivers 5 mg tablet 1-31 TABLET BY ity of 00:00: [facility] DAILY Medical Branch SPIRONOLACT 2022-0 Yes [id number] TAKE 1 [facility] ONE 25 mg 1-31 TABLET BY ity o f tablet 00:00: [facility] TWICE Medical DAILY Branch FUROSEMIDE 2022-0 Yes TAKE 1 Unive rs 80 mg 1-31 TABLET BY ity of tablet 00:00: [facility] TWICE Medical DAILY Branch AMLODIPINE 2022-0 Yes [id number] 5mg TAKE 1 U nivers 5 mg tablet 1-31 TABLET BY ity of 00:00: [facility] DAILY Medical Branch SPIRONOLACT 2022-0 Yes [id number] TAKE 1 [facility] ONE 25 mg 1-31 TABLET BY ity o f tablet 00:00: [facility] TWICE Medical DAILY Branch FUROSEMIDE 2022-0 Yes TAKE 1 Unive rs 80 mg 1-31 TABLET BY ity of tablet 00:00: [facility] TWICE Medical DAILY Branch AMLODIPINE 2022-0 Yes [id number] 5mg TAKE 1 U nivers 5 mg tablet 1-31 TABLET BY ity of 00:00: [facility] DAILY Medical Branch SPIRONOLACT 2022-0 Yes [id number] TAKE 1 [facility] ONE 25 mg 1-31 TABLET BY ity o f tablet 00:00: [facility] TWICE Medical DAILY Branch FUROSEMIDE 2022-0 Yes TAKE 1 Unive rs 80 mg 1-31 TABLET BY ity of tablet 00:00: TWICE Medical DAILY Branch AMLODIPINE 2022-0 Yes [id number] 5mg TAKE 1 U nivers 5 mg tablet 1-31 TABLET BY ity of 00:00: [facility] DAILY Medical Branch SPIRONOLACT 2022-0 Yes [id number] TAKE 1 [facility] ONE 25 mg 1-31 TABLET BY ity o f tablet 00:00: [facility] TWICE Medical DAILY Branch FUROSEMIDE 2022-0 Yes TAKE 1 Unive rs 80 mg 1-31 TABLET BY ity of tablet 00:00: TWICE Medical DAILY Branch AMLODIPINE 2022-0 Yes [id number] 5mg TAKE 1 U nivers 5 mg tablet 1-31 TABLET BY ity of 00:00: [facility] DAILY Medical Branch SPIRONOLACT 2022-0 Yes [id number] TAKE 1 [facility] ONE 25 mg 1-31 TABLET BY ity o f tablet 00:00: [facility] TWICE Medical DAILY Branch FUROSEMIDE 2022-0 Yes TAKE 1 Unive rs 80 mg 1-31 TABLET BY ity of tablet 00:00: [facility] TWICE Medical DAILY Branch AMLODIPINE 2022-0 Yes [id number] 5mg TAKE 1 U nivers 5 mg tablet 1-31 TABLET BY ity of 00:00: [facility] DAILY Medical Branch SPIRONOLACT 2022-0 Yes [id number] TAKE 1 [facility] ONE 25 mg 1-31 TABLET BY ity o f tablet 00:00: [facility] TWICE Medical DAILY Branch FUROSEMIDE 2022-0 Yes TAKE 1 Unive rs 80 mg 1-31 TABLET BY ity of tablet 00:00: [facility] TWICE Medical DAILY Branch AMLODIPINE 2022-0 Yes [id number] 5mg TAKE 1 U nivers 5 mg tablet 1-31 TABLET BY ity of 00:00: [facility] DAILY Medical Branch SPIRONOLACT 2022-0 Yes [id number] TAKE 1 [facility] ONE 25 mg 1-31 TABLET BY ity o f tablet 00:00: [facility] TWICE Medical DAILY Branch FUROSEMIDE 2022-0 Yes TAKE 1 Unive rs 80 mg 1-31 TABLET BY ity of tablet 00:00: [facility] TWICE Medical DAILY Branch AMLODIPINE 2022-0 Yes [id number] 5mg TAKE 1 U nivers 5 mg tablet 1-31 TABLET BY ity of 00:00: [facility] DAILY Medical Branch SPIRONOLACT 2022-0 Yes [id number] TAKE 1 [facility] ONE 25 mg 1-31 TABLET BY ity o f tablet 00:00: MOUTH 00 TWICE Medical DAILY Branch FUROSEMIDE 2022-0 Yes TAKE 1 [facility]ive rs 80 mg 1-31 TABLET BY ity of tablet 00:00: MOUTH 00 TWICE Medical DAILY Branch AMLODIPINE 2022-0 Yes [id number] 5mg TAKE 1 U nivers 5 mg tablet 1-31 TABLET BY ity of 00:00: MOUTH DAILY Medical Branch SPIRONOLACT 2022-0 Yes [id number] TAKE 1 [facility] ONE 25 mg 1-31 TABLET BY ity o f tablet 00:00: MOUTH TWICE Medical DAILY Branch FUROSEMIDE 2022-0 Yes TAKE 1 [facility]ive rs 80 mg 1-31 TABLET BY ity of tablet 00:00: MOUTH TWICE Medical DAILY Branch AMLODIPINE 2022-0 Yes [id number] 5mg TAKE 1 U nivers 5 mg tablet 1-31 TABLET BY ity of 00:00: MOUTH DAILY Medical Branch SPIRONOLACT 2022-0 Yes [id number] TAKE 1 [facility] ONE 25 mg 1-31 TABLET BY ity o f tablet 00:00: MOUTH TWICE Medical DAILY Branch FUROSEMIDE 2022-0 Yes TAKE 1 [facility]ive rs 80 mg 1-31 TABLET BY ity of tablet 00:00: MOUTH TWICE Medical DAILY Branch AMLODIPINE 2022-0 Yes [id number] 5mg TAKE 1 U nivers 5 mg tablet 1-31 TABLET BY ity of 00:00: MOUTH DAILY Medical Branch SPIRONOLACT 2022-0 Yes [id number] TAKE 1 [facility] ONE 25 mg 1-31 TABLET BY ity o f tablet 00:00: MOUTH TWICE Medical DAILY Branch FUROSEMIDE 2022-0 Yes TAKE 1 [facility]ive rs 80 mg 1-31 TABLET BY ity of tablet 00:00: MOUTH TWICE Medical DAILY Branch AMLODIPINE 2022-0 Yes [id number] 5mg TAKE 1 U nivers 5 mg tablet 1-31 TABLET BY ity of 00:00: MOUTH [place] 00 DAILY Medical Branch SPIRONOLACT 2022-0 Yes [id number] TAKE 1 [facility] ONE 25 mg 1-31 TABLET BY ity o f tablet 00:00: MOUTH TWICE Medical DAILY Branch FUROSEMIDE 2022-0 Yes TAKE 1 [facility]ive rs 80 mg 1-31 TABLET BY ity of tablet 00:00: MOUTH 00 TWICE Medical DAILY Branch AMLODIPINE 2022-0 Yes [id number] 5mg TAKE 1 U nivers 5 mg tablet 1-31 TABLET BY ity of 00:00: MOUTH [place] DAILY Medical Branch SPIRONOLACT 2022-0 Yes [id number] TAKE 1 [facility] ONE 25 mg 1-31 TABLET BY ity o f tablet 00:00: MOUTH 00 TWICE Medical DAILY Branch FUROSEMIDE 2022-0 Yes TAKE 1 [facility] rs 80 mg 1-31 TABLET BY ity of tablet 00:00: MOUTH TWICE Medical DAILY Branch AMLODIPINE 2022-0 Yes [id number] 5mg TAKE 1 U nivers 5 mg tablet 1-31 TABLET BY ity of 00:00: MOUTH [place] DAILY Medical Branch SPIRONOLACT 2022-0 Yes [id number] TAKE 1 [facility] ONE 25 mg 1-31 TABLET BY ity o f tablet 00:00: [facility] TWICE Medical DAILY Branch FUROSEMIDE 2022-0 Yes TAKE 1 Unive rs 80 mg 1-31 TABLET BY ity of tablet 00:00: [facility] TWICE Medical DAILY Branch SPIRONOLACT 2022-0 Yes [id number] TAKE 1 [facility] ONE 25 mg 1-31 TABLET BY ity o f tablet 00:00: [facility] TWICE Medical DAILY Branch FUROSEMIDE 2022-0 Yes TAKE 1 Unive rs 80 mg 1-31 TABLET BY ity of tablet 00:00: [facility] TWICE Medical DAILY Branch SPIRONOLACT 2022-0 Yes [id number] TAKE 1 [facility] ONE 25 mg 1-31 TABLET BY ity o f tablet 00:00: [facility] TWICE Medical DAILY Branch FUROSEMIDE 2022-0 Yes TAKE 1 Unive rs 80 mg 1-31 TABLET BY ity of tablet 00:00: [facility] TWICE Medical DAILY Branch SPIRONOLACT 2022-0 Yes [id number] TAKE 1 [facility] ONE 25 mg 1-31 TABLET BY ity o f tablet 00:00: [facility] 00 TWICE Medical DAILY Branch FUROSEMIDE 2022-0 Yes TAKE 1 [facility]ive rs 80 mg 1-31 TABLET BY ity of tablet 00:00: [facility] TWICE Medical DAILY Branch SPIRONOLACT 2022-0 Yes [id number] TAKE 1 [facility] ONE 25 mg 1-31 TABLET BY ity o f tablet 00:00: [facility] TWICE Medical DAILY Branch FUROSEMIDE 2022-0 Yes TAKE 1 [facility]ive rs 80 mg 1-31 TABLET BY ity of tablet 00:00: MOUTH [place] 00 TWICE Medical DAILY Branch SPIRONOLACT 2022-0 Yes [id number] TAKE 1 [facility] ONE 25 mg 1-31 TABLET BY ity o f tablet 00:00: MOUTH [place] 00 TWICE Medical DAILY Branch SPIRONOLACT 2022-0 Yes [id number] TAKE 1 [facility] ONE 25 mg 1-31 TABLET BY ity o f tablet 00:00: MOUTH [place] 00 TWICE Medical DAILY Branch SPIRONOLACT 2022-0 Yes [id number] TAKE 1 [facility] ONE 25 mg 1-31 TABLET BY ity o f tablet 00:00: MOUTH [place] 00 TWICE Medical DAILY Branch SPIRONOLACT 2022-0 Yes [id number] TAKE 1 [facility] ONE 25 mg 1-31 TABLET BY ity o f tablet 00:00: [facility] 00 TWICE Medical DAILY Branch SPIRONOLACT 2022-0 Yes [id number] TAKE 1 [facility] ONE 25 mg 1-31 TABLET BY ity o f tablet 00:00: [facility] 00 TWICE Medical DAILY Branch SPIRONOLACT 2022-0 Yes [id number] TAKE 1 [facility] ONE 25 mg 1-31 TABLET BY ity o f tablet 00:00: [facility] 00 TWICE Medical DAILY Branch SPIRONOLACT 2022-0 Yes [id number] TAKE 1 [facility] ONE 25 mg 1-31 TABLET BY ity o f tablet 00:00: [facility] 00 TWICE Medical DAILY Branch SPIRONOLACT 2022-0 Yes [id number] TAKE 1 [facility] ONE 25 mg 1-31 TABLET BY ity o f tablet 00:00: [facility] 00 TWICE Medical DAILY Branch SPIRONOLACT 2022-0 Yes [id number] TAKE 1 [facility] ONE 25 mg 1-31 TABLET BY ity o f tablet 00:00: [facility] 00 TWICE Medical DAILY Branch SPIRONOLACT 2022-0 Yes [id number] TAKE 1 [facility] ONE 25 mg 1-31 TABLET BY ity o f tablet 00:00: [facility] 00 TWICE Medical DAILY Branch SPIRONOLACT 2022-0 Yes [id number] TAKE 1 [facility] ONE 25 mg 1-31 TABLET BY ity o f tablet 00:00: [facility] 00 TWICE Medical DAILY Branch SPIRONOLACT 2022-0 Yes [id number] TAKE 1 [facility] ONE 25 mg 1-31 TABLET BY ity o f tablet 00:00: [facility] 00 TWICE Medical DAILY Branch SPIRONOLACT 2022-0 Yes [id number] TAKE 1 [facility] ONE 25 mg 1-31 TABLET BY ity o f tablet 00:00: MOUTH [place] 00 TWICE Medical DAILY Branch SPIRONOLACT 2-0 Yes [id number] TAKE 1 [facility] ONE 25 mg 1-31 TABLET BY ity o f tablet 00:00: [facility] 00 TWICE Medical DAILY Branch SPIRONOLACT 2021-0 Yes [id number] TAKE 1 [facility] ONE 25 mg 1-31 TABLET BY ity o f tablet 00:00: [facility] 00 TWICE Medical DAILY Branch SPIRONOLACT 2021-0 Yes [id number] TAKE 1 [facility] ONE 25 mg 1-31 TABLET BY ity o f tablet 00:00: MOUTH [place] 00 TWICE Medical DAILY Branch SPIRONOLACT 2021-0 Yes [id number] TAKE 1 [facility] ONE 25 mg 1-31 TABLET BY ity o f tablet 00:00: [facility] 00 TWICE Medical DAILY Branch SPIRONOLACT 2021-0 Yes [id number] TAKE 1 [facility] ONE 25 mg 1-31 TABLET BY ity o f tablet 00:00: [facility] 00 TWICE Medical DAILY Branch SPIRONOLACT 2021-0 Yes [id number] TAKE 1 [facility] ONE 25 mg 1-31 TABLET BY ity o f tablet 00:00: [facility] 00 TWICE Medical DAILY Branch SPIRONOLACT 2021-0 2021- No [id number] TAKE 1 [facility] ONE 25 mg 1-31 12-08 TABLET BY ity of tablet 00:00: 00:00 [facility] 00 :00 TWICE Medical DAILY Branch SPIRONOLACT 2021-0 2021- No [id number] TAKE 1 [facility] ONE 25 mg 1-31 12-08 TABLET BY ity of tablet 00:00: 00:00 [facility] 00 :00 TWICE Medical DAILY Branch FUROSEMIDE 2-0 2- No TAKE 1 Univ ers 80 mg 1-31 - TABLET BY ity of tablet 00:00: 00:00 [facility] 00 :00 TWICE Medical DAILY Branch FUROSEMIDE 2-0 2021- No TAKE 1 Univ ers 80 mg 1-31 - TABLET BY ity of tablet 00:00: 00:00 [facility] 00 :00 TWICE Medical DAILY Branch FUROSEMIDE 2022-0 2022- No TAKE 1 [facility] ers 80 mg 1-31 - TABLET BY ity of tablet 00:00: 00:00 [facility] 00 :00 TWICE Medical DAILY Branch AMLODIPINE 2-0 2- No [id number] 5mg TAKE 1 [facility] 5 mg tablet 09-02 TABLET BY it y of 00:00: 00:00 MOUTH [place] 00 :00 DAILY Medical Branch venlafaxine 2021-0 Yes [id number] TK 1 C PO [facility] XR 150 mg 1-13 QD ity of 24 hr 00:00: [place] capsule Medical Branch venlafaxine 2021-0 Yes [id number] TK 1 C PO [facility] XR 150 mg 1-13 QD ity of 24 hr 00:00: [place] capsule Medical Branch venlafaxine 2021-0 Yes [id number] TK 1 C PO [facility] XR 150 mg 1-13 QD ity of 24 hr 00:00: [place] capsule Medical Branch venlafaxine 2021-0 Yes [id number] TK 1 C PO [facility] XR 150 mg 1-13 QD ity of 24 hr 00:00: [place] capsule Medical Branch venlafaxine 2021-0 Yes [id number] TK 1 C PO [facility] XR 150 mg 1-13 QD ity of 24 hr 00:00: [place] capsule Medical Branch venlafaxine 2021-0 Yes [id number] TK 1 C PO [facility] XR 150 mg 1-13 QD ity of 24 hr 00:00: [place] capsule Medical Branch venlafaxine 2021-0 Yes [id number] TK 1 C PO [facility] XR 150 mg 1-13 QD ity of 24 hr 00:00: [place] capsule Medical Branch venlafaxine 2021-0 Yes [id number] TK 1 C PO [facility] XR 150 mg 1-13 QD ity of 24 hr 00:00: [place] capsule Medical Branch venlafaxine 2021-0 Yes [id number] TK 1 C PO [facility] XR 150 mg 1-13 QD ity of 24 hr 00:00: [place] capsule Medical Branch venlafaxine 2021-0 Yes [id number] TK 1 C PO [facility] XR 150 mg 1-13 QD ity of 24 hr 00:00: [place] capsule Medical Branch venlafaxine 2021-0 Yes [id number] TK 1 C PO [facility] XR 150 mg 1-13 QD ity of 24 hr 00:00: [place] capsule Medical Branch venlafaxine 2021-0 Yes [id number] TK 1 C PO [facility] XR 150 mg 1-13 QD ity of 24 hr 00:00: [place] capsule Medical Branch venlafaxine 2021-0 Yes [id number] TK 1 C PO [facility] XR 150 mg 1-13 QD ity of 24 hr 00:00: [place] capsule Medical Branch venlafaxine 2021-0 Yes [id number] TK 1 C PO [facility] XR 150 mg 1-13 QD ity of 24 hr 00:00: [place] capsule Medical Branch venlafaxine 2021-0 Yes [id number] TK 1 C PO [facility] XR 150 mg 1-13 QD ity of 24 hr 00:00: [place] capsule Medical Branch venlafaxine 2021-0 Yes [id number] TK 1 C PO [facility] XR 150 mg 1-13 QD ity of 24 hr 00:00: [place] capsule Medical Branch venlafaxine 2021-0 Yes [id number] TK 1 C PO [facility] XR 150 mg 1-13 QD ity of 24 hr 00:00: [place] capsule Medical Branch venlafaxine 2021-0 Yes [id number] TK 1 C PO [facility] XR 150 mg 1-13 QD ity of 24 hr 00:00: [place] capsule Medical Branch venlafaxine 2021-0 Yes [id number] TK 1 C PO [facility] XR 150 mg 1-13 QD ity of 24 hr 00:00: [place] capsule Medical Branch venlafaxine 2021-0 Yes [id number] TK 1 C PO [facility] XR 150 mg 1-13 QD ity of 24 hr 00:00: [place] capsule Medical Branch venlafaxine 2021-0 Yes [id number] TK 1 C PO [facility] XR 150 mg 1-13 QD ity of 24 hr 00:00: [place] capsule Medical Branch venlafaxine 2021-0 Yes [id number] TK 1 C PO [facility] XR 150 mg 1-13 QD ity of 24 hr 00:00: [place] capsule Medical Branch venlafaxine 2021-0 Yes [id number] TK 1 C PO [facility] XR 150 mg 1-13 QD ity of 24 hr 00:00: [place] capsule Medical Branch venlafaxine 2021-0 Yes [id number] TK 1 C PO [facility] XR 150 mg 1-13 QD ity of 24 hr 00:00: [place] capsule Medical Branch venlafaxine 2021-0 Yes [id number] TK 1 C PO [facility] XR 150 mg 1-13 QD ity of 24 hr 00:00: [place] capsule Medical Branch venlafaxine 2021-0 Yes [id number] TK 1 C PO [facility] XR 150 mg 1-13 QD ity of 24 hr 00:00: [place] capsule Medical Branch venlafaxine 2021-0 Yes [id number] TK 1 C PO [facility] XR 150 mg 1-13 QD ity of 24 hr 00:00: [place] capsule Medical Branch venlafaxine 2021-0 Yes [id number] TK 1 C PO [facility] XR 150 mg 1-13 QD ity of 24 hr 00:00: [place] capsule Medical Branch venlafaxine 2021-0 Yes [id number] TK 1 C PO [facility] XR 150 mg 1-13 QD ity of 24 hr 00:00: [place] capsule Medical Branch venlafaxine 2021-0 Yes [id number] TK 1 C PO [facility] XR 150 mg 1-13 QD ity of 24 hr 00:00: [place] capsule Medical Branch venlafaxine 2021-0 Yes [id number] TK 1 C PO [facility] XR 150 mg 1-13 QD ity of 24 hr 00:00: [place] capsule Medical Branch venlafaxine 2021-0 Yes [id number] TK 1 C PO [facility] XR 150 mg 1-13 QD ity of 24 hr 00:00: [place] capsule Medical Branch venlafaxine 2021-0 Yes [id number] TK 1 C PO [facility] XR 150 mg 1-13 QD ity of 24 hr 00:00: [place] capsule Medical Branch venlafaxine 2021-0 Yes [id number] TK 1 C PO [facility] XR 150 mg 1-13 QD ity of 24 hr 00:00: [place] capsule [facility] Branch venlafaxine 2021-0 Yes [id number] TK 1 C PO [facility] XR 150 mg 1-13 QD ity of 24 hr 00:00: [place] capsule Medical Branch venlafaxine 2021-0 Yes [id number] TK 1 C PO [facility] XR 150 mg 1-13 QD ity of 24 hr 00:00: [place] capsule [facility] Branch venlafaxine 2-0 Yes [id number] TK 1 C PO [facility] XR 150 mg 1-13 QD ity of 24 hr 00:00: [place] capsule [facility] Branch venlafaxine 2021-0 Yes [id number] TK 1 C PO [facility] XR 150 mg 1-13 QD ity of 24 hr 00:00: [place] capsule Medical Branch venlafaxine 2-0 Yes [id number] TK 1 C PO [facility] XR 150 mg 1-13 QD ity of 24 hr 00:00: [place] capsule Medical Branch venlafaxine 2021-0 Yes [id number] TK 1 C PO [facility] XR 150 mg 1-13 QD ity of 24 hr 00:00: [place] capsule Medical Branch venlafaxine 2-0 Yes [id number] TK 1 C PO [facility] XR 150 mg 1-13 QD ity of 24 hr 00:00: [place] capsule Medical Branch venlafaxine 2-0 Yes [id number] TK 1 C PO [facility] XR 150 mg 1-13 QD ity of 24 hr 00:00: [place] capsule Medical Branch venlafaxine 2021-0 Yes [id number] TK 1 C PO [facility] XR 150 mg 1-13 QD ity of 24 hr 00:00: [place] capsule [facility] Branch venlafaxine 2021-0 Yes [id number] TK 1 C PO [facility] XR 150 mg 1-13 QD ity of 24 hr 00:00: [place] capsule [facility] Branch venlafaxine 2021-0 Yes [id number] TK 1 C PO [facility] XR 150 mg 1-13 QD ity of 24 hr 00:00: [place] capsule Medical Branch venlafaxine 2021-0 Yes [id number] TK 1 C PO [facility] XR 150 mg 1-13 QD ity of 24 hr 00:00: [place] capsule [facility] Branch venlafaxine 2021-0 Yes [id number] TK 1 C PO [facility] XR 150 mg 1-13 QD ity of 24 hr 00:00: [place] capsule [facility] Branch venlafaxine 2021-0 Yes [id number] TK 1 C PO [facility] XR 150 mg 1-13 QD ity of 24 hr 00:00: [place] capsule Medical Branch venlafaxine 2021-0 Yes [id number] TK 1 C PO [facility] XR 150 mg 1-13 QD ity of 24 hr 00:00: [place] capsule [facility] Branch venlafaxine 2-0 Yes [id number] TK 1 C PO [facility] XR 150 mg 1-13 QD ity of 24 hr 00:00: [place] capsule [facility] Branch venlafaxine 2021-0 Yes [id number] TK 1 C PO [facility] XR 150 mg 1-13 QD ity of 24 hr 00:00: [place] capsule Medical Branch venlafaxine 2021-0 Yes [id number] TK 1 C PO [facility] XR 150 mg 1-13 QD ity of 24 hr 00:00: [place] capsule [facility] Branch venlafaxine 2021-0 Yes [id number] TK 1 C PO [facility] XR 150 mg 1-13 QD ity of 24 hr 00:00: [place] capsule [facility] Branch venlafaxine 2021-0 Yes [id number] TK 1 C PO [facility] XR 150 mg 1-13 QD ity of 24 hr 00:00: [place] capsule [facility] venlafaxine 2021-0 Yes [id number] TK 1 C PO [facility] XR 150 mg 1-13 QD ity of 24 hr 00:00: [place] capsule [facility] Branch venlafaxine 2021-0 Yes [id number] TK 1 C PO [facility] XR 150 mg 1-13 QD ity of 24 hr 00:00: [place] capsule [facility] Branch venlafaxine 2021-0 Yes [id number] TK 1 C PO [facility] XR 150 mg 1-13 QD ity of 24 hr 00:00: [place] capsule [facility] Branch venlafaxine 2021-0 Yes [id number] TK 1 C PO [facility] XR 150 mg 1-13 QD ity of 24 hr 00:00: [place] capsule [facility] Branch venlafaxine 2021-0 Yes [id number] TK 1 C PO [facility] XR 150 mg 1-13 QD ity of 24 hr 00:00: [place] capsule [facility] venlafaxine 2021-0 Yes [id number] TK 1 C PO [facility] XR 150 mg 1-13 QD ity of 24 hr 00:00: [place] capsule [facility] Branch venlafaxine 2021-0 Yes [id number] TK 1 C PO [facility] XR 150 mg 1-13 QD ity of 24 hr 00:00: [place] capsule [facility] Branch venlafaxine 2021-0 Yes [id number] TK 1 C PO [facility] XR 150 mg 1-13 QD ity of 24 hr 00:00: [place] capsule [facility] venlafaxine 2021-0 Yes [id number] TK 1 C PO [facility] XR 150 mg 1-13 QD ity of 24 hr 00:00: [place] capsule [facility] Branch venlafaxine 2021-0 Yes [id number] TK 1 C PO [facility] XR 150 mg 1-13 QD ity of 24 hr 00:00: [place] capsule [facility] venlafaxine 2021-0 Yes [id number] TK 1 C PO [facility] XR 150 mg 1-13 QD ity of 24 hr 00:00: [place] capsule [facility] venlafaxine 2022-0 Yes [id number] TK 1 C PO [facility] XR 150 mg 1-13 QD ity of 24 hr 00:00: [place] capsule [facility] Branch venlafaxine Yes [id number] TK 1 C PO [facility] XR 150 mg 1-13 QD ity of 24 hr 00:00: [place] capsule [facility] Branch venlafaxine 0 Yes [id number] TK 1 C PO [facility] XR 150 mg 1-13 QD ity of 24 hr 00:00: [place] capsule [facility] Branch venlafaxine Yes [id number] TK 1 C PO [facility] XR 150 mg 1-13 QD ity of 24 hr 00:00: [place] capsule [facility] Branch venlafaxine Yes [id number] TK 1 C PO [facility] XR 150 mg 1-13 QD ity of 24 hr 00:00: [place] capsule Medical Branch omega-3 2020-08 Yes 1g Take 1 g Univer s fatty 1-17 by mouth ity of acids-vitam 09:44: [place]. [place] (FISH 23 Medical OIL) 1,000 Branch mg capsule omega-3 2020-08 Yes 1g Take 1 g Univer s fatty 1-17 by mouth ity of acids-vitam 09:44: daily. [place] (FISH 23 Medical OIL) 1,000 Branch mg capsule omega-3 2020-08 Yes 1g Take 1 g Univer s fatty 1-17 by mouth ity of acids-vitam 09:44: daily. [place] (FISH 23 Medical OIL) 1,000 Branch mg capsule omega-3 2020-08 Yes 1g Take 1 g Univer s fatty 1-17 by mouth ity of acids-vitam 09:44: daily. [place] (FISH 23 Medical OIL) 1,000 Branch mg capsule omega-3 2020-08 Yes 1g Take 1 g Univer s fatty 1-17 by mouth ity of acids-vitam 09:44: daily. [place] (FISH 23 Medical OIL) 1,000 Branch mg capsule omega-3 2020-08 Yes 1g Take 1 g Univer s fatty 1-17 by mouth ity of acids-vitam 09:44: daily. [place] (FISH 23 Medical OIL) 1,000 Branch mg capsule omega-3 2020-08 Yes 1g Take 1 g Univer s fatty 1-17 by mouth ity of acids-vitam 09:44: daily. [place] (FISH 23 Medical OIL) 1,000 Branch mg capsule omega-3 2020-08 Yes 1g Take 1 g Univer s fatty 1-17 by mouth ity of acids-vitam 09:44: daily. [place] (FISH 23 Medical OIL) 1,000 Branch mg capsule omega-3 2020-08 Yes 1g Take 1 g Univer s fatty 1-17 by mouth ity of acids-vitam 09:44: daily. [place] (FISH 23 Medical OIL) 1,000 Branch mg capsule omega-3 2020-08 Yes 1g Take 1 g Univer s fatty 1-17 by mouth ity of acids-vitam 09:44: daily. [place] (FISH 23 Medical OIL) 1,000 Branch mg capsule omega-3 2020-08 Yes 1g Take 1 g Univer s fatty 1-17 by mouth ity of acids-vitam 09:44: daily. [place] (FISH 23 Medical OIL) 1,000 Branch mg capsule omega-3 2020-08 Yes 1g Take 1 g Univer s fatty 1-17 by mouth ity of acids-vitam 09:44: daily. [place] (FISH 23 Medical OIL) 1,000 Branch mg capsule omega-3 2020-08 Yes 1g Take 1 g Univer s fatty 1-17 by mouth ity of acids-vitam 09:44: daily. [place] (FISH 23 Medical OIL) 1,000 Branch mg capsule omega-3 2020-08 Yes 1g Take 1 g Univer s fatty 1-17 by mouth ity of acids-vitam 09:44: daily. [place] (FISH 23 Medical OIL) 1,000 Branch mg capsule omega-3 2020-08 Yes 1g Take 1 g Univer s fatty 1-17 by mouth ity of acids-vitam 09:44: daily. [place] (FISH 23 Medical OIL) 1,000 Branch mg capsule omega-3 2020-08 Yes 1g Take 1 g Univer s fatty 1-17 by mouth ity of acids-vitam 09:44: daily. [place] (FISH 23 Medical OIL) 1,000 Branch mg capsule omega-3 2020-08 Yes 1g Take 1 g Univer s fatty 1-17 by mouth ity of acids-vitam 09:44: daily. [place] (FISH 23 Medical OIL) 1,000 Branch mg capsule omega-3 2020-08 Yes 1g Take 1 g Univer s fatty 1-17 by mouth ity of acids-vitam 09:44: daily. [place] (FISH 23 Medical OIL) 1,000 Branch mg capsule omega-3 2020-08 Yes 1g Take 1 g Univer s fatty 1-17 by mouth ity of acids-vitam 09:44: daily. [place] (FISH 23 Medical OIL) 1,000 Branch mg capsule omega-3 2020-08 Yes 1g Take 1 g Univer s fatty 1-17 by mouth ity of acids-vitam 09:44: daily. [place] (FISH 23 Medical OIL) 1,000 Branch mg capsule omega-3 2020-08 Yes 1g Take 1 g Univer s fatty 1-17 by mouth ity of acids-vitam 09:44: daily. [place] (FISH 23 Medical OIL) 1,000 Branch mg capsule omega-3 2020-08 Yes 1g Take 1 g Univer s fatty 1-17 by mouth ity of acids-vitam 09:44: daily. [place] (FISH 23 Medical OIL) 1,000 Branch mg capsule omega-3 2020-08 Yes 1g Take 1 g Univer s fatty 1-17 by mouth ity of acids-vitam 09:44: daily. [place] (FISH 23 Medical OIL) 1,000 Branch mg capsule omega-3 2020-08 Yes 1g Take 1 g Univer s fatty 1-17 by mouth ity of acids-vitam 09:44: daily. [place] (FISH 23 Medical OIL) 1,000 Branch mg capsule omega-3 2020-08 Yes 1g Take 1 g Univer s fatty 1-17 by mouth ity of acids-vitam 09:44: daily. [place] (FISH 23 Medical OIL) 1,000 Branch mg capsule omega-3 2020-08 Yes 1g Take 1 g Univer s fatty 1-17 by mouth ity of acids-vitam 09:44: daily. [place] (FISH 23 Medical OIL) 1,000 Branch mg capsule omega-3 2020-08 Yes 1g Take 1 g Univer s fatty 1-17 by mouth ity of acids-vitam 09:44: daily. [place] (FISH 23 Medical OIL) 1,000 Branch mg capsule omega-3 2020-08 Yes 1g Take 1 g Univer s fatty 1-17 by mouth ity of acids-vitam 09:44: daily. [place] (FISH 23 Medical OIL) 1,000 Branch mg capsule omega-3 2020-08 Yes 1g Take 1 g [facility]iver s fatty 1-17 by mouth ity of acids-vitam 09:44: daily. [place] (FISH 23 Medical OIL) 1,000 Branch mg capsule omega-3 2020-08 Yes 1g Take 1 g [facility]iver s fatty 1-17 by mouth ity of acids-vitam 09:44: daily. [place] (FISH 23 Medical OIL) 1,000 Branch mg capsule omega-3 2020-08 Yes 1g Take 1 g Univer s fatty 1-17 by mouth ity of acids-vitam 09:44: daily. [place] (FISH 23 Medical OIL) 1,000 Branch mg capsule omega-3 2020-08 Yes 1g Take 1 g [facility]iver s fatty 1-17 by mouth ity of acids-vitam 09:44: daily. [place] (FISH 23 Medical OIL) 1,000 Branch mg capsule omega-3 2020-08 Yes 1g Take 1 g [facility]iver s fatty 1-17 by mouth ity of acids-vitam 09:44: daily. [place] (FISH 23 Medical OIL) 1,000 Branch mg capsule omega-3 2020-08 Yes 1g Take 1 g [facility]iver s fatty 1-17 by mouth ity of acids-vitam 09:44: daily. [place] (FISH 23 Medical OIL) 1,000 Branch mg capsule omega-3 2020-08 Yes 1g Take 1 g [facility] s fatty 1-17 by mouth ity of acids-vitam 09:44: daily. [place] (FISH 23 Medical OIL) 1,000 Branch mg capsule omega-3 2020-08 Yes 1g Take 1 g [facility] s fatty 1-17 by mouth ity of acids-vitam 09:44: daily. [place] (FISH 23 Medical OIL) 1,000 Branch mg capsule omega-3 2020-08 Yes 1g Take 1 g [facility]iver s fatty 1-17 by mouth ity of acids-vitam 09:44: daily. [place] (FISH 23 Medical OIL) 1,000 Branch mg capsule omega-3 2020-08 Yes 1g Take 1 g [facility]iver s fatty 1-17 by mouth ity of acids-vitam 09:44: daily. [place] (FISH 23 Medical OIL) 1,000 Branch mg capsule omega-3 2020-08 Yes 1g Take 1 g [facility]iver s fatty 1-17 by mouth ity of acids-vitam 09:44: daily. [place] (FISH 23 Medical OIL) 1,000 Branch mg capsule omega-3 2020-08 Yes 1g Take 1 g [facility]iver s fatty 1-17 by mouth ity of acids-vitam 09:44: daily. [place] (FISH 23 Medical OIL) 1,000 Branch mg capsule omega-3 2020-08 Yes 1g Take 1 g [facility]iver s fatty 1-17 by mouth ity of acids-vitam 09:44: daily. [place] (FISH 23 Medical OIL) 1,000 Branch mg capsule omega-3 2020-08 Yes 1g Take 1 g Univer s fatty 1-17 by mouth ity of acids-vitam 09:44: daily. [place] (FISH 23 Medical OIL) 1,000 Branch mg capsule omega-3 2020-08 Yes 1g Take 1 g [facility]iver s fatty 1-17 by mouth ity of acids-vitam 09:44: daily. [place] (FISH 23 Medical OIL) 1,000 Branch mg capsule omega-3 2020-08 Yes 1g Take 1 g [facility]iver s fatty 1-17 by mouth ity of acids-vitam 09:44: daily. [place] (FISH 23 Medical OIL) 1,000 Branch mg capsule omega-3 2020-08 Yes 1g Take 1 g [facility] s fatty 1-17 by mouth ity of acids-vitam 09:44: daily. [place] (FISH 23 Medical OIL) 1,000 Branch mg capsule omega-3 2020-08 Yes 1g Take 1 g [facility] fatty 1-17 by mouth ity of acids-vitam 09:44: daily. [place] (FISH 23 Medical OIL) 1,000 Branch mg capsule omega-3 2020-08 Yes 1g Take 1 g [facility]iver s fatty 1-17 by mouth ity of acids-vitam 09:44: daily. [place] (FISH 23 Medical OIL) 1,000 Branch mg capsule omega-3 2020-08 Yes 1g Take 1 g [facility] fatty 1-17 by mouth [facility] acids-vitam 09:44[place] (FISH 23 [facility] OIL) 1,000 Branch mg capsule omega-3 2020-08 Yes 1g Take 1 g [facility] fatty 1-17 by mouth [facility]y of acids-vitam 09:44: [place]FISH 23 [facility] OIL) 1,000 Branch mg capsule omega-3 2020-08 Yes 1g Take 1 g [facility] fatty 1-17 by mouth [facility]y of acids-vitam 09:44: [place] (FISH 23 [facility] OIL) 1,000 Branch mg capsule omega-3 2020-08 Yes 1g Take 1 g [facility] fatty 1-17 by mouth [facility]y of acids-vitam 09:44: [place] (FISH 23 [facility] OIL) 1,000 Branch mg capsule omega-3 2020-08 Yes 1g Take 1 g [facility] fatty 1-17 by mouth ity of acids-vitam 09:44: [place]. [place] (FISH 23 [facility] OIL) 1,000 Branch mg capsule omega-3 2020-08 Yes 1g Take 1 g [facility] fatty 1-17 by mouth ity of acids-vitam 09:44: daily. [place] (FISH 23 [facility] OIL) 1,000 Branch mg capsule omega-3 2020-08 Yes 1g Take 1 g [facility] fatty 1-17 by mouth ity of acids-vitam 09:44: daily. [place] (FISH 23 Medical OIL) 1,000 Branch mg capsule omega-3 2020-08 Yes 1g Take 1 g [facility] fatty 1-17 by mouth ity of acids-vitam 09:44: daily. [place] (FISH 23 Medical OIL) 1,000 Branch mg capsule omega-3 2020-08 Yes 1g Take 1 g [facility] fatty 1-17 by mouth ity of acids-vitam 09:44: daily. [place] (FISH 23 Medical OIL) 1,000 Branch mg capsule omega-3 2020-08 Yes 1g Take 1 g [facility] fatty 1-17 by mouth ity of acids-vitam 09:44: daily. [place] (FISH 23 Medical OIL) 1,000 Branch mg capsule omega-3 2020-08 Yes 1g Take 1 g [facility] fatty 1-17 by mouth ity of acids-vitam 09:44: daily. [place] (FISH 23 [facility] OIL) 1,000 Branch mg capsule omega-3 2020-08 Yes 1g Take 1 g [facility] fatty 1-17 by mouth ity of acids-vitam 09:44: daily. [place] (FISH 23 Medical OIL) 1,000 Branch mg capsule omega-3 2020-08 Yes 1g Take 1 g [facility] fatty 1-17 by mouth ity of acids-vitam 09:44: daily. [place] (FISH 23 Medical OIL) 1,000 Branch mg capsule omega-3 2020-08 Yes 1g Take 1 g [facility] fatty 1-17 by mouth ity of acids-vitam 09:44: daily. [place] (FISH 23 [facility] OIL) 1,000 Branch mg capsule omega-3 2020-08 Yes 1g Take 1 g [facility] fatty 1-17 by mouth ity of acids-vitam 09:44: daily. [place] (FISH 23 [facility] OIL) 1,000 Branch mg capsule omega-3 2020-08 Yes 1g Take 1 g [facility] fatty 1-17 by mouth ity of acids-vitam 09:44: daily. [place] (FISH 23 Medical OIL) 1,000 Branch mg capsule omega-3 2020-08 Yes 1g Take 1 g [facility] fatty 1-17 by mouth ity of acids-vitam 09:44: daily. [place] (FISH 23 Medical OIL) 1,000 Branch mg capsule omega-3 2020-08 Yes 1g Take 1 g [facility] fatty 1-17 by mouth ity of acids-vitam 09:44: daily. [place] (FISH 23 Medical OIL) 1,000 Branch mg capsule omega-3 2020-08 Yes 1g Take 1 g [facility] fatty 1-17 by mouth ity of acids-vitam 09:44: daily. [place] (FISH 23 Medical OIL) 1,000 Branch mg capsule omega-3 2020-08 Yes 1g Take 1 g [facility] fatty 1-17 by mouth ity of acids-vitam 09:44: daily. [place] (FISH 23 [facility] OIL) 1,000 Branch mg capsule omega-3 2020-08 Yes 1g Take 1 g [facility] fatty 1-17 by mouth ity of acids-vitam 09:44: daily. [place] (FISH 23 Medical OIL) 1,000 Branch mg capsule omega-3 2020-08 Yes 1g Take 1 g [facility] fatty 1-17 by mouth ity of acids-vitam 09:44: daily. [place] (FISH 23 Medical OIL) 1,000 Branch mg capsule omega-3 2020-08 Yes 1g Take 1 g [facility] fatty 1-17 by mouth ity of acids-vitam 09:44: daily. [place] (FISH 23 Medical OIL) 1,000 Branch mg capsule Methylcellu 2021-0 Yes [id number] 1{scoop Take 1 [facility] lose, with 9-23 } Scoop by ity o f Sugar, 00:00: mouth [place] (CITRUCEL, 00 daily. Medical SUCROSE,) Mixed with Bran ch powder water Methylcellu 2021-0 Yes [id number] 1{scoop Take 1 [facility] lose, with 9-23 } Scoop by ity o f Sugar, 00:00: mouth [place] (CITRUCEL, 00 daily. Medical SUCROSE,) Mixed with Bran ch powder water Methylcellu 2021-0 Yes [id number] 1{scoop Take 1 [facility] lose, with 9-23 } Scoop by ity o f Sugar, 00:00: mouth [place] (CITRUCEL, 00 daily. Medical SUCROSE,) Mixed with Bran ch powder water Methylcellu 2021-0 Yes [id number] 1{scoop Take 1 [facility] lose, with 9-23 } Scoop by ity o f Sugar, 00:00: mouth [place] (CITRUCEL, 00 daily. Medical SUCROSE,) Mixed with Bran ch powder water Methylcellu 2021-0 Yes [id number] 1{scoop Take 1 [facility] lose, with 9-23 } Scoop by ity o f Sugar, 00:00: mouth [place] (CITRUCEL, 00 daily. Medical SUCROSE,) Mixed with Bran ch powder water Methylcellu 1-0 Yes [id number] 1{scoop Take 1 [facility] lose, with 9-23 } Scoop by ity o f Sugar, 00:00: mouth [place] (CITRUCEL, 00 daily. Medical SUCROSE,) Mixed with Bran ch powder water Methylcellu 1-0 Yes [id number] 1{scoop Take 1 Univers lose, with 9-23 } Scoop by ity o f Sugar, 00:00: mouth [place] (CITRUCEL, 00 daily. Medical SUCROSE,) Mixed with Bran ch powder water Methylcellu 2021-0 Yes [id number] 1{scoop Take 1 [facility] lose, with 9-23 } Scoop by ity o f Sugar, 00:00: mouth [place] (CITRUCEL, 00 daily. Medical SUCROSE,) Mixed with Bran ch powder water Methylcellu 1-0 Yes [id number] 1{scoop Take 1 [facility] lose, with 9-23 } Scoop by ity o f Sugar, 00:00: mouth [place] (CITRUCEL, 00 daily. Medical SUCROSE,) Mixed with Bran ch powder water Methylcellu 1-0 Yes [id number] 1{scoop Take 1 [facility] lose, with 9-23 } Scoop by ity o f Sugar, 00:00: mouth [place] (CITRUCEL, 00 daily. Medical SUCROSE,) Mixed with Bran ch powder water Methylcellu 1-0 Yes [id number] 1{scoop Take 1 [facility] lose, with 9-23 } Scoop by ity o f Sugar, 00:00: mouth [place] (CITRUCEL, 00 daily. Medical SUCROSE,) Mixed with Bran ch powder water Methylcellu 2021-0 Yes [id number] 1{scoop Take 1 [facility] lose, with 9-23 } Scoop by ity o f Sugar, 00:00: mouth [place] (CITRUCEL, 00 daily. Medical SUCROSE,) Mixed with Bran ch powder water Methylcellu 2021-0 Yes [id number] 1{scoop Take 1 [facility] lose, with 9-23 } Scoop by ity o f Sugar, 00:00: mouth [place] (CITRUCEL, 00 daily. Medical SUCROSE,) Mixed with Bran ch powder water Methylcellu 2021-0 Yes [id number] 1{scoop Take 1 [facility] lose, with 9-23 } Scoop by ity o f Sugar, 00:00: mouth [place] (CITRUCEL, 00 daily. Medical SUCROSE,) Mixed with Bran ch powder water Methylcellu 2021-0 Yes [id number] 1{scoop Take 1 [facility] lose, with 9-23 } Scoop by ity o f Sugar, 00:00: mouth [place] (CITRUCEL, 00 daily. Medical SUCROSE,) Mixed with Bran ch powder water Methylcellu 2021-0 Yes [id number] 1{scoop Take 1 [facility] lose, with 9-23 } Scoop by ity o f Sugar, 00:00: mouth [place] (CITRUCEL, 00 daily. Medical SUCROSE,) Mixed with Bran ch powder water Methylcellu 2021-0 Yes [id number] 1{scoop Take 1 [facility] lose, with 9-23 } Scoop by ity o f Sugar, 00:00: mouth [place] (CITRUCEL, 00 daily. Medical SUCROSE,) Mixed with Bran ch powder water Methylcellu 2021-0 Yes [id number] 1{scoop Take 1 [facility] lose, with 9-23 } Scoop by ity o f Sugar, 00:00: mouth [place] (CITRUCEL, 00 daily. Medical SUCROSE,) Mixed with Bran ch powder water Methylcellu 2021-0 Yes [id number] 1{scoop Take 1 [facility] lose, with 9-23 } Scoop by ity o f Sugar, 00:00: mouth [place] (CITRUCEL, 00 daily. Medical SUCROSE,) Mixed with Bran ch powder water Methylcellu 2021-0 Yes [id number] 1{scoop Take 1 [facility] lose, with 9-23 } Scoop by ity o f Sugar, 00:00: mouth [place] (CITRUCEL, 00 daily. Medical SUCROSE,) Mixed with Bran ch powder water Methylcellu 2021-0 Yes [id number] 1{scoop Take 1 [facility] lose, with 9-23 } Scoop by ity o f Sugar, 00:00: mouth [place] (CITRUCEL, 00 daily. Medical SUCROSE,) Mixed with Bran ch powder water Methylcellu 2021-0 Yes [id number] 1{scoop Take 1 Univers lose, with 9-23 } Scoop by ity o f Sugar, 00:00: mouth [place] (CITRUCEL, 00 daily. Medical SUCROSE,) Mixed with Bran ch powder water Methylcellu 2021-0 Yes [id number] 1{scoop Take 1 Univers lose, with 9-23 } Scoop by ity o f Sugar, 00:00: mouth [place] (CITRUCEL, 00 daily. Medical SUCROSE,) Mixed with Bran ch powder water Methylcellu 2021-0 Yes [id number] 1{scoop Take 1 Univers lose, with 9-23 } Scoop by ity o f Sugar, 00:00: mouth [place] (CITRUCEL, 00 daily. Medical SUCROSE,) Mixed with Bran ch powder water Methylcellu 2021-0 Yes [id number] 1{scoop Take 1 Univers lose, with 9-23 } Scoop by ity o f Sugar, 00:00: mouth [place] (CITRUCEL, 00 daily. Medical SUCROSE,) Mixed with Bran ch powder water Methylcellu 2021-0 Yes [id number] 1{scoop Take 1 Univers lose, with 9-23 } Scoop by ity o f Sugar, 00:00: mouth [place] (CITRUCEL, 00 daily. Medical SUCROSE,) Mixed with Bran ch powder water Methylcellu 2021-0 Yes [id number] 1{scoop Take 1 Univers lose, with 9-23 } Scoop by ity o f Sugar, 00:00: mouth [place] (CITRUCEL, 00 daily. Medical SUCROSE,) Mixed with Bran ch powder water Methylcellu 2021-0 Yes [id number] 1{scoop Take 1 Univers lose, with 9-23 } Scoop by ity o f Sugar, 00:00: mouth [place] (CITRUCEL, 00 daily. Medical SUCROSE,) Mixed with Bran ch powder water Methylcellu 2021-0 Yes [id number] 1{scoop Take 1 Univers lose, with 9-23 } Scoop by ity o f Sugar, 00:00: mouth [place] (CITRUCEL, 00 daily. Medical SUCROSE,) Mixed with Bran ch powder water Methylcellu 2021-0 Yes [id number] 1{scoop Take 1 Univers lose, with 9-23 } Scoop by ity o f Sugar, 00:00: mouth [place] (CITRUCEL, 00 daily. Medical SUCROSE,) Mixed with Bran ch powder water Methylcellu 2021-0 Yes [id number] 1{scoop Take 1 Univers lose, with 9-23 } Scoop by ity o f Sugar, 00:00: mouth [place] (CITRUCEL, 00 daily. Medical SUCROSE,) Mixed with Bran ch powder water Methylcellu 2021-0 Yes [id number] 1{scoop Take 1 Univers lose, with 9-23 } Scoop by ity o f Sugar, 00:00: mouth [place] (CITRUCEL, 00 daily. Medical SUCROSE,) Mixed with Bran ch powder water Methylcellu 2021-0 Yes [id number] 1{scoop Take 1 Univers lose, with 9-23 } Scoop by ity o f Sugar, 00:00: mouth [place] (CITRUCEL, 00 daily. Medical SUCROSE,) Mixed with Bran ch powder water Methylcellu 2021-0 Yes [id number] 1{scoop Take 1 Univers lose, with 9-23 } Scoop by ity o f Sugar, 00:00: mouth [place] (CITRUCEL, 00 daily. Medical SUCROSE,) Mixed with Bran ch powder water Methylcellu 2021-0 Yes [id number] 1{scoop Take 1 Univers lose, with 9-23 } Scoop by ity o f Sugar, 00:00: mouth [place] (CITRUCEL, 00 daily. Medical SUCROSE,) Mixed with Bran ch powder water Methylcellu 2021-0 Yes [id number] 1{scoop Take 1 Univers lose, with 9-23 } Scoop by ity o f Sugar, 00:00: mouth [place] (CITRUCEL, 00 daily. Medical SUCROSE,) Mixed with Bran ch powder water Methylcellu 2021-0 Yes [id number] 1{scoop Take 1 Univers lose, with 9-23 } Scoop by ity o f Sugar, 00:00: mouth [place] (CITRUCEL, 00 daily. Medical SUCROSE,) Mixed with Bran ch powder water Methylcellu 2021-0 Yes [id number] 1{scoop Take 1 Univers lose, with 9-23 } Scoop by ity o f Sugar, 00:00: mouth [place] (CITRUCEL, 00 daily. Medical SUCROSE,) Mixed with Bran ch powder water Methylcellu 2021-0 Yes [id number] 1{scoop Take 1 [facility] lose, with 9-23 } Scoop by ity o f Sugar, 00:00: mouth [place] (CITRUCEL, 00 daily. Medical SUCROSE,) Mixed with Bran ch powder water Methylcellu 2021-0 Yes [id number] 1{scoop Take 1 Univers lose, with 9-23 } Scoop by ity o f Sugar, 00:00: mouth [place] (CITRUCEL, 00 daily. Medical SUCROSE,) Mixed with Bran ch powder water Methylcellu 2021-0 Yes [id number] 1{scoop Take 1 Univers lose, with 9-23 } Scoop by ity o f Sugar, 00:00: mouth [place] (CITRUCEL, 00 daily. Medical SUCROSE,) Mixed with Bran ch powder water Methylcellu 2021-0 Yes [id number] 1{scoop Take 1 Univers lose, with 9-23 } Scoop by ity o f Sugar, 00:00: mouth [place] (CITRUCEL, 00 daily. Medical SUCROSE,) Mixed with Bran ch powder water Methylcellu 2021-0 Yes [id number] 1{scoop Take 1 Univers lose, with 9-23 } Scoop by ity o f Sugar, 00:00: mouth [place] (CITRUCEL, 00 daily. Medical SUCROSE,) Mixed with Bran ch powder water Methylcellu 2021-0 Yes [id number] 1{scoop Take 1 Univers lose, with 9-23 } Scoop by ity o f Sugar, 00:00: mouth [place] (CITRUCEL, 00 daily. Medical SUCROSE,) Mixed with Bran ch powder water Methylcellu 2021-0 Yes [id number] 1{scoop Take 1 [facility] lose, with 9-23 } Scoop by ity o f Sugar, 00:00: mouth [place] (CITRUCEL, 00 daily. Medical SUCROSE,) Mixed with Bran ch powder water Methylcellu 2021-0 Yes [id number] 1{scoop Take 1 [facility] lose, with 9-23 } Scoop by ity o f Sugar, 00:00: mouth [place] (CITRUCEL, 00 daily. Medical SUCROSE,) Mixed with Bran ch powder water Methylcellu 2021-0 Yes [id number] 1{scoop Take 1 [facility] lose, with 9-23 } Scoop by ity o f Sugar, 00:00: mouth [place] (CITRUCEL, 00 daily. Medical SUCROSE,) Mixed with Bran ch powder water Methylcellu 2021-0 Yes [id number] 1{scoop Take 1 Univers lose, with 9-23 } Scoop by ity o f Sugar, 00:00: mouth [place] (CITRUCEL, 00 daily. Medical SUCROSE,) Mixed with Bran ch powder water Methylcellu 2021-0 Yes [id number] 1{scoop Take 1 [facility] lose, with 9-23 } Scoop by ity o f Sugar, 00:00: mouth [place] (CITRUCEL, 00 daily. Medical SUCROSE,) Mixed with Bran ch powder water Methylcellu 1-0 Yes [id number] 1{scoop Take 1 Univers lose, with 9-23 } Scoop by ity o f Sugar, 00:00: mouth [place] (CITRUCEL, 00 daily. Medical SUCROSE,) Mixed with Bran ch powder water Methylcellu 1-0 Yes [id number] 1{scoop Take 1 Univers lose, with 9-23 } Scoop by ity o f Sugar, 00:00: mouth [place] (CITRUCEL, 00 daily. Medical SUCROSE,) Mixed with Bran ch powder water Methylcellu 1-0 Yes [id number] 1{scoop Take 1 Univers lose, with 9-23 } Scoop by ity o f Sugar, 00:00: mouth [place] (CITRUCEL, 00 daily. Medical SUCROSE,) Mixed with Bran ch powder water Methylcellu 2021-0 Yes [id number] 1{scoop Take 1 Univers lose, with 9-23 } Scoop by ity o f Sugar, 00:00: mouth [place] (CITRUCEL, 00 daily. Medical SUCROSE,) Mixed with Bran ch powder water Methylcellu 2021-0 Yes [id number] 1{scoop Take 1 Univers lose, with 9-23 } Scoop by ity o f Sugar, 00:00: mouth [place] (CITRUCEL, 00 daily. Medical SUCROSE,) Mixed with Bran ch powder water Methylcellu 2021-0 Yes [id number] 1{scoop Take 1 [facility] lose, with 9-23 } Scoop by ity o f Sugar, 00:00: mouth [place] (CITRUCEL, 00 daily. Medical SUCROSE,) Mixed with Bran ch powder water Methylcellu 2021-0 Yes [id number] 1{scoop Take 1 Univers lose, with 9-23 } Scoop by ity o f Sugar, 00:00: mouth [place] (CITRUCEL, 00 daily. Medical SUCROSE,) Mixed with Bran ch powder water Methylcellu 2021-0 Yes [id number] 1{scoop Take 1 Univers lose, with 9-23 } Scoop by ity o f Sugar, 00:00: mouth [place] (CITRUCEL, 00 daily. Medical SUCROSE,) Mixed with Bran ch powder water Methylcellu 2021-0 Yes [id number] 1{scoop Take 1 Univers lose, with 9-23 } Scoop by ity o f Sugar, 00:00: mouth [place] (CITRUCEL, 00 daily. Medical SUCROSE,) Mixed with Bran ch powder water Methylcellu 1-0 Yes [id number] 1{scoop Take 1 Univers lose, with 9-23 } Scoop by ity o f Sugar, 00:00: mouth [place] (CITRUCEL, 00 daily. Medical SUCROSE,) Mixed with Bran ch powder water Methylcellu 2021-0 Yes [id number] 1{scoop Take 1 Univers lose, with 9-23 } Scoop by ity o f Sugar, 00:00: mouth [place] (CITRUCEL, 00 daily. Medical SUCROSE,) Mixed with Bran ch powder water Methylcellu 2021-0 Yes [id number] 1{scoop Take 1 Univers lose, with 9-23 } Scoop by ity o f Sugar, 00:00: mouth [place] (CITRUCEL, 00 daily. Medical SUCROSE,) Mixed with Bran ch powder water Methylcellu 2021-0 Yes [id number] 1{scoop Take 1 Univers lose, with 9-23 } Scoop by ity o f Sugar, 00:00: mouth [place] (CITRUCEL, 00 daily. Medical SUCROSE,) Mixed with Bran ch powder water Methylcellu 2021-0 Yes [id number] 1{scoop Take 1 Univers lose, with 9-23 } Scoop by ity o f Sugar, 00:00: mouth [place] (CITRUCEL, 00 daily. Medical SUCROSE,) Mixed with Bran ch powder water Methylcellu 2021-0 Yes [id number] 1{scoop Take 1 Univers lose, with 9-23 } Scoop by ity o f Sugar, 00:00: mouth [place] (CITRUCEL, 00 daily. Medical SUCROSE,) Mixed with Bran ch powder water Methylcellu 2021-0 Yes [id number] 1{scoop Take 1 Univers lose, with 9-23 } Scoop by ity o f Sugar, 00:00: mouth [place] (CITRUCEL, 00 daily. Medical SUCROSE,) Mixed with Bran ch powder water Methylcellu 2021-0 Yes [id number] 1{scoop Take 1 Univers lose, with 9-23 } Scoop by ity o f Sugar, 00:00: mouth [place] (CITRUCEL, 00 daily. Medical SUCROSE,) Mixed with Bran ch powder water Methylcellu 2021-0 Yes [id number] 1{scoop Take 1 Univers lose, with 9-23 } Scoop by ity o f Sugar, 00:00: mouth [place] (CITRUCEL, 00 daily. Medical SUCROSE,) Mixed with Bran ch powder water Methylcellu 2021-0 Yes [id number] 1{scoop Take 1 Univers lose, with 9-23 } Scoop by ity o f Sugar, 00:00: mouth [place] (CITRUCEL, 00 daily. Medical SUCROSE,) Mixed with Bran ch powder water Methylcellu 2021-0 Yes [id number] 1{scoop Take 1 Univers lose, with 9-23 } Scoop by ity o f Sugar, 00:00: mouth [place] (CITRUCEL, 00 daily. Medical SUCROSE,) Mixed with Bran ch powder water Methylcellu 2021-0 Yes [id number] 1{scoop Take 1 Univers lose, with 9-23 } Scoop by ity o f Sugar, 00:00: mouth [place] (CITRUCEL, 00 daily. Medical SUCROSE,) Mixed with Bran ch powder water chlorhexidi 2020-0 Yes [id number] Apply to [facility] ne 4 % 9-22 area(s) ity of external 00:00: once daily [place] as liquid 00 as needed Medical for Wound Branch care. chlorhexidi 0 Yes [id number] Apply to [facility] ne 4 % 9-22 area(s) ity of external 00:00: once daily [place] as liquid 00 as needed Medical for Wound Branch care. chlorhexidi 0 Yes [id number] Apply to [facility] ne 4 % 9-22 area(s) ity of external 00:00: once daily [place] as liquid 00 as needed Medical for Wound Branch care. chlorhexidi 0 Yes [id number] Apply to [facility] ne 4 % 9-22 area(s) ity of external 00:00: once daily [place] as liquid 00 as needed Medical for Wound Branch care. chlorhexidi 0 Yes [id number] Apply to [facility] ne 4 % 9-22 area(s) ity of external 00:00: once daily [place] as liquid 00 as needed Medical for Wound Branch care. chlorhexidi 0 Yes [id number] Apply to [facility] ne 4 % 9-22 area(s) ity of external 00:00: once daily [place] as liquid 00 as needed Medical for Wound Branch care. chlorhexidi 0 Yes [id number] Apply to [facility] ne 4 % 9-22 area(s) ity of external 00:00: once daily [place] as liquid 00 as needed Medical for Wound Branch care. chlorhexidi 2020-0 Yes [id number] Apply to [facility] ne 4 % 9-22 area(s) ity of external 00:00: once daily [place] as liquid 00 as needed Medical for Wound Branch care. chlorhexidi 2020-0 Yes [id number] Apply to [facility] ne 4 % 9-22 area(s) ity of external 00:00: once daily [place] as liquid 00 as needed Medical for Wound Branch care. chlorhexidi 2020-0 Yes [id number] Apply to [facility] ne 4 % 9-22 area(s) ity of external 00:00: once daily [place] as liquid 00 as needed Medical for Wound Branch care. chlorhexidi 2021-0 Yes [id number] Apply to [facility] ne 4 % 9-22 area(s) ity of external 00:00: once daily [place] as liquid 00 as needed Medical for Wound Branch care. chlorhexidi 0 Yes [id number] Apply to [facility] ne 4 % 9-22 area(s) ity of external 00:00: once daily [place] as liquid 00 as needed Medical for Wound Branch care. chlorhexidi 0 Yes [id number] Apply to [facility] ne 4 % 9-22 area(s) ity of external 00:00: once daily [place] as liquid 00 as needed Medical for Wound Branch care. chlorhexidi 0 Yes [id number] Apply to [facility] ne 4 % 9-22 area(s) ity of external 00:00: once daily [place] as liquid 00 as needed Medical for Wound Branch care. chlorhexidi 0 Yes [id number] Apply to [facility] ne 4 % 9-22 area(s) ity of external 00:00: once daily [place] as liquid 00 as needed Medical for Wound Branch care. chlorhexidi 0 Yes [id number] Apply to [facility] ne 4 % 9-22 area(s) ity of external 00:00: once daily [place] as liquid 00 as needed Medical for Wound Branch care. chlorhexidi 0 Yes [id number] Apply to [facility] ne 4 % 9-22 area(s) ity of external 00:00: once daily [place] as liquid 00 as needed Medical for Wound Branch care. chlorhexidi 0 Yes [id number] Apply to [facility] ne 4 % 9-22 area(s) ity of external 00:00: once daily [place] as liquid 00 as needed Medical for Wound Branch care. chlorhexidi 0 Yes [id number] Apply to [facility] ne 4 % 9-22 area(s) ity of external 00:00: once daily [place] as liquid 00 as needed Medical for Wound Branch care. chlorhexidi 0 Yes [id number] Apply to [facility] ne 4 % 9-22 area(s) ity of external 00:00: once daily [place] as liquid 00 as needed Medical for Wound Branch care. chlorhexidi 0 Yes [id number] Apply to [facility] ne 4 % 9-22 area(s) ity of external 00:00: once daily [place] as liquid 00 as needed Medical for Wound Branch care. chlorhexidi 2020-0 Yes [id number] Apply to [facility] ne 4 % 9-22 area(s) ity of external 00:00: once daily [place] as liquid 00 as needed Medical for Wound Branch care. chlorhexidi 0 Yes [id number] Apply to [facility] ne 4 % 9-22 area(s) ity of external 00:00: once daily [place] as liquid 00 as needed Medical for Wound Branch care. chlorhexidi 0 Yes [id number] Apply to [facility] ne 4 % 9-22 area(s) ity of external 00:00: once daily [place] as liquid 00 as needed Medical for Wound Branch care. chlorhexidi 0 Yes [id number] Apply to [facility] ne 4 % 9-22 area(s) ity of external 00:00: once daily [place] as liquid 00 as needed Medical for Wound Branch care. chlorhexidi 0 Yes [id number] Apply to [facility] ne 4 % 9-22 area(s) ity of external 00:00: once daily [place] as liquid 00 as needed Medical for Wound Branch care. chlorhexidi 0 Yes [id number] Apply to [facility] ne 4 % 9-22 area(s) ity of external 00:00: once daily [place] as liquid 00 as needed Medical for Wound Branch care. chlorhexidi 0 Yes [id number] Apply to [facility] ne 4 % 9-22 area(s) ity of external 00:00: once daily [place] as liquid 00 as needed Medical for Wound Branch care. chlorhexidi 0 Yes [id number] Apply to [facility] ne 4 % 9-22 area(s) ity of external 00:00: once daily [place] as liquid 00 as needed Medical for Wound Branch care. chlorhexidi 2020-0 Yes [id number] Apply to [facility] ne 4 % 9-22 area(s) ity of external 00:00: once daily [place] as liquid 00 as needed Medical for Wound Branch care. chlorhexidi 2020-0 Yes [id number] Apply to [facility] ne 4 % 9-22 area(s) ity of external 00:00: once daily [place] as liquid 00 as needed Medical for Wound Branch care. chlorhexidi 2020-0 Yes [id number] Apply to [facility] ne 4 % 9-22 area(s) ity of external 00:00: once daily [place] as liquid 00 as needed Medical for Wound Branch care. chlorhexidi 0 Yes [id number] Apply to [facility] ne 4 % 9-22 area(s) ity of external 00:00: once daily [place] as liquid 00 as needed Medical for Wound Branch care. chlorhexidi 0 Yes [id number] Apply to [facility] ne 4 % 9-22 area(s) ity of external 00:00: once daily [place] as liquid 00 as needed Medical for Wound Branch care. chlorhexidi 0 Yes [id number] Apply to [facility] ne 4 % 9-22 area(s) ity of external 00:00: once daily [place] as liquid 00 as needed Medical for Wound Branch care. chlorhexidi 0 Yes [id number] Apply to [facility] ne 4 % 9-22 area(s) ity of external 00:00: once daily [place] as liquid 00 as needed Medical for Wound Branch care. chlorhexidi 0 Yes [id number] Apply to [facility] ne 4 % 9-22 area(s) ity of external 00:00: once daily [place] as liquid 00 as needed Medical for Wound Branch care. chlorhexidi 0 Yes [id number] Apply to [facility] ne 4 % 9-22 area(s) ity of external 00:00: once daily [place] as liquid 00 as needed Medical for Wound Branch care. chlorhexidi 0 Yes [id number] Apply to [facility] ne 4 % 9-22 area(s) ity of external 00:00: once daily [place] as liquid 00 as needed Medical for Wound Branch care. chlorhexidi 0 Yes [id number] Apply to [facility] ne 4 % 9-22 area(s) ity of external 00:00: once daily [facility] as liquid 00 as needed Medical for Wound Branch care. chlorhexidi 0 Yes [id number] Apply to [facility] ne 4 % 9-22 area(s) ity of external 00:00: once daily [place] as liquid 00 as needed [facility] for Wound Branch care. chlorhexidi 0 Yes [id number] Apply to [facility] ne 4 % 9-22 area(s) ity of external 00:00: once daily [place] as liquid 00 as needed [facility] for Wound Branch care. chlorhexidi 2021-0 Yes [id number] [facility] to [facility] % 9-[facility] area(s) ity of external 00:00: once daily [place] as liquid 00 as needed [facility] for Wound [facility] care. chlorhexidi 0 Yes [id number] Apply to [facility] ne 4 % 9-22 area(s) ity of external 00:00: once daily [place] as liquid 00 as needed [facility] for W[facility] care. chlorhexidi 0 Yes [id number] Apply to [facility] ne 4 % 9-22 area(s) ity of external 00:00: once daily [place] as liquid 00 as needed [facility] for Wound [facility] care. chlorhexidi 0 Yes [id number] Apply to [facility] ne 4 % 9-22 area(s) ity of external 00:00: once daily [place] as liquid 00 as needed [facility] for [facility] care. chlorhexidi Yes [id number] Apply to [facility] ne 4 % 9-22 area(s) ity of external 00:00: once daily [place] as liquid 00 as needed [facility] for [facility] care. chlorhexidi 0 Yes [id number] Apply to [facility] ne 4 % 9-22 area(s) ity of external 00:00: once daily [place] as liquid 00 as needed [facility] for [facility] care. chlorhexidi 0 Yes [id number] Apply to [facility] ne 4 % 9-22 area(s) ity of external 00:00: once daily [place] as liquid 00 as needed [facility] for [facility] care. chlorhexidi 0 Yes [id number] Apply to [facility] ne 4 % 9-22 area(s) ity of external 00:00: once daily [facility] as liquid 00 as needed [facility] for [facility] care. chlorhexidi 0 Yes [id number] Apply to [facility] ne 4 % 9-22 area(s) ity of external 00:00: once daily [place] as liquid 00 as needed [facility] for [facility] care. chlorhexidi 0 Yes [id number] Apply to [facility] 4 % 9-22 area(s) ity of external 00:00: once daily [place] as liquid 00 as needed [facility] for [facility] care. chlorhexidi 0 Yes [id number] Apply to [facility] ne 4 % 9-22 area(s) ity of external 00:00: once daily [place] as liquid 00 as needed [facility] for [facility] care. chlorhexidi 0 Yes [id number] Apply to [facility] ne 4 % 9-22 area(s) ity of external 00:00: once daily [place] as liquid 00 as needed [facility] for [facility] care. chlorhexidi 0 Yes [id number] Apply to [facility] 4 % 9-22 area(s) ity of external 00:00: once daily [place] as liquid 00 as needed [facility] for [facility] care. chlorhexidi 0 Yes [id number] Apply to [facility] 4 % 9-22 area(s) ity of external 00:00: once daily [facility] as liquid 00 as needed [facility] for [facility] care. chlorhexidi 0 Yes [id number] Apply to [facility] ne 4 % 9-22 area(s) ity of external 00:00: once daily [facility] as liquid 00 as needed [facility] for W[facility] care. chlorhexidi 0 Yes [id number] Apply to [facility] 4 % 9-22 area(s) ity of external 00:00: once daily [facility] as liquid 00 as needed [facility] for [facility] Branch care. chlorhexidi 0 Yes [id number] Apply to [facility] ne 4 % 9-22 area(s) ity of external 00:00: once daily [facility] as liquid 00 as needed [facility] for W[facility] care. chlorhexidi 0 Yes [id number] Apply to [facility] ne 4 % 9-22 area(s) ity of external 00:00: once daily [place] as liquid 00 as needed [facility] for [facility] care. chlorhexidi 0 Yes [id number] Apply to [facility] ne 4 % 9-22 area(s) ity of external 00:00: once daily [place] as liquid 00 as needed [facility] for W[facility] care. chlorhexidi 0 Yes [id number] Apply to [facility] 4 % 9-22 area(s) ity of external 00:00: once daily [place] as liquid 00 as needed Medical for W[facility] Branch care. chlorhexidi 2020-0 Yes [id number] Apply to [facility] 4 % 9-22 area(s) ity of external 00:00: once daily [place] as liquid 00 as needed Medical for W[facility] Branch care. chlorhexidi 2020-0 Yes [id number] Apply to [facility] 4 % 9-22 area(s) ity of external 00:00: once daily [place] as liquid 00 as needed Medical for Wound Branch care. chlorhexidi 2020-0 Yes [id number] Apply to [facility] ne 4 % 9-22 area(s) ity of external 00:00: once daily [place] as liquid 00 as needed Medical for Wound Branch care. chlorhexidi 0 Yes [id number] Apply to [facility] ne 4 % 9-22 area(s) ity of external 00:00: once daily [place] as liquid 00 as needed Medical for Wound Branch care. chlorhexidi 0 Yes [id number] Apply to [facility] ne 4 % 9-22 area(s) ity of external 00:00: once daily [place] as liquid 00 as needed Medical for Wound Branch care. chlorhexidi 0 Yes [id number] Apply to [facility] ne 4 % 9-22 area(s) ity of external 00:00: once daily [place] as liquid 00 as needed Medical for Wound Branch care. chlorhexidi 0 Yes [id number] Apply to [facility] ne 4 % 9-22 area(s) ity of external 00:00: once daily [place] as liquid 00 as needed Medical for Wound Branch care. chlorhexidi 0 Yes [id number] Apply to [facility] ne 4 % 9-22 area(s) ity of external 00:00: once daily [place] as liquid 00 as needed Medical for Wound Branch care. ONETOUCH Yes [id number] Use as [facility] DELICA PLUS 7-27 directed ity of LANCET 30 00:00: for twice [place] as gauge Misc 00 a day Medical glucose Branch monitoring for ICD E11.9 TOUCH Yes [id number] Use as [facility] DELICA PLUS 7-27 directed ity of LANCET 30 00:00: for twice [place] as gauge Misc 00 a day Medical glucose Branch monitoring for ICD E11.9 ONETOUCH Yes [id number] Use as [facility] DELICA PLUS 7-27 directed ity of LANCET 30 00:00: for twice [place] as gauge Misc 00 a day Medical glucose Branch monitoring for ICD E11.9 ONETOUCH Yes [id number] Use as [facility] DELICA PLUS 7-27 directed ity of LANCET 30 00:00: for twice [place] as gauge Misc 00 a day Medical glucose Branch monitoring for ICD E11.9 ONETOUCH 2020-0 Yes [id number] Use as [facility] DELICA PLUS 7-27 directed ity of LANCET 30 00:00: for twice [place] as gauge Misc 00 a day Medical glucose Branch monitoring for ICD E11.9 ONETOUCH 2020-0 Yes [id number] Use as [facility] DELICA PLUS 7-27 directed ity of LANCET 30 00:00: for twice [place] as gauge Misc 00 a day Medical glucose Branch monitoring for ICD E11.9 ONETOUCH 2020-0 Yes [id number] Use as [facility] DELICA PLUS 7-27 directed ity of LANCET 30 00:00: for twice [place] as gauge Misc 00 a day Medical glucose Branch monitoring for ICD E11.9 ONETOUCH 2020-0 Yes [id number] Use as [facility] DELICA PLUS 7-27 directed ity of LANCET 30 00:00: for twice [place] as gauge Misc 00 a day Medical glucose Branch monitoring for ICD E11.9 ONETOUCH 2020-0 Yes [id number] Use as [facility] DELICA PLUS 7-27 directed ity of LANCET 30 00:00: for twice [place] as gauge Misc 00 a day Medical glucose Branch monitoring for ICD E11.9 ONETOUCH 2020-0 Yes [id number] Use as [facility] DELICA PLUS 7-27 directed ity of LANCET 30 00:00: for twice [place] as gauge Misc 00 a day Medical glucose Branch monitoring for ICD E11.9 ONETOUCH 2020-0 Yes [id number] Use as [facility] DELICA PLUS 7-27 directed ity of LANCET 30 00:00: for twice [place] as gauge Misc 00 a day Medical glucose Branch monitoring for ICD E11.9 ONETOUCH 2020-0 Yes [id number] Use as [facility] DELICA PLUS 7-27 directed ity of LANCET 30 00:00: for twice [place] as gauge Misc 00 a day Medical glucose Branch monitoring for ICD E11.9 ONETOUCH 2020-0 Yes [id number] Use as [facility] DELICA PLUS 7-27 directed ity of LANCET 30 00:00: for twice [place] as gauge Misc 00 a day Medical glucose Branch monitoring for ICD E11.9 ONETOUCH 2020- Yes [id number] Use as [facility] DELICA PLUS 7-27 directed ity of LANCET 30 00:00: for twice [place] as gauge Misc 00 a day Medical glucose Branch monitoring for ICD E11.9 ONETOUCH 2020-0 Yes [id number] Use as [facility] DELICA PLUS 7-27 directed ity of LANCET 30 00:00: for twice [place] as gauge Misc 00 a day Medical glucose Branch monitoring for ICD E11.9 ONETOUCH 2020- Yes [id number] Use as [facility] DELICA PLUS 7-27 directed ity of LANCET 30 00:00: for twice [place] as gauge Misc 00 a day Medical glucose Branch monitoring for ICD E11.9 ONETOUCH Yes [id number] Use as [facility] DELICA PLUS 7-27 directed ity of LANCET 30 00:00: for twice [place] as gauge Misc 00 a day Medical glucose Branch monitoring for ICD E11.9 ONETOUCH Yes [id number] Use as [facility] DELICA PLUS 7-27 directed ity of LANCET 30 00:00: for twice [place] as gauge Misc 00 a day Medical glucose Branch monitoring for ICD E11.9 ONETOUCH Yes [id number] Use as [facility] DELICA PLUS 7-27 directed ity of LANCET 30 00:00: for twice [place] as gauge Misc 00 a day Medical glucose Branch monitoring for ICD E11.9 ONETOUCH 0 Yes [id number] Use as [facility] DELICA PLUS 7-27 directed ity of LANCET 30 00:00: for twice [place] as gauge Misc 00 a day Medical glucose Branch monitoring for ICD E11.9 ONETOUCH Yes [id number] Use as [facility] DELICA PLUS 7-27 directed ity of LANCET 30 00:00: for twice [place] as gauge Misc 00 a day Medical glucose Branch monitoring for ICD E11.9 ONETOUCH 0 Yes [id number] Use as [facility] DELICA PLUS 7-27 directed ity of LANCET 30 00:00: for twice [place] as gauge Misc 00 a day Medical glucose Branch monitoring for ICD E11.9 ONETOUCH 2020-0 Yes [id number] Use as [facility] DELICA PLUS 7-27 directed ity of LANCET 30 00:00: for twice [place] as gauge Misc 00 a day Medical glucose Branch monitoring for ICD E11.9 ONETOUCH 2020-0 Yes [id number] Use as [facility] DELICA PLUS 7-27 directed ity of LANCET 30 00:00: for twice [place] as gauge Misc 00 a day Medical glucose Branch monitoring for ICD E11.9 ONETOUCH 2020-0 Yes [id number] Use as [facility] DELICA PLUS 7-27 directed ity of LANCET 30 00:00: for twice [place] as gauge Misc 00 a day Medical glucose Branch monitoring for ICD E11.9 ONETOUCH 2020-0 Yes [id number] Use as [facility] DELICA PLUS 7-27 directed ity of LANCET 30 00:00: for twice [place] as gauge Misc 00 a day Medical glucose Branch monitoring for ICD E11.9 ONETOUCH 2020-0 Yes [id number] Use as [facility] DELICA PLUS 7-27 directed ity of LANCET 30 00:00: for twice [place] as gauge Misc 00 a day Medical glucose Branch monitoring for ICD E11.9 ONETOUCH 2020-0 Yes [id number] Use as [facility] DELICA PLUS 7-27 directed ity of LANCET 30 00:00: for twice [place] as gauge Misc 00 a day Medical glucose Branch monitoring for ICD E11.9 ONETOUCH 2020-0 Yes [id number] Use as [facility] DELICA PLUS 7-27 directed ity of LANCET 30 00:00: for twice [place] as gauge Misc 00 a day Medical glucose Branch monitoring for ICD E11.9 ONETOUCH 2020-0 Yes [id number] Use as [facility] DELICA PLUS 7-27 directed ity of LANCET 30 00:00: for twice [place] as gauge Misc 00 a day Medical glucose Branch monitoring for ICD E11.9 ONETOUCH 2020-0 Yes [id number] Use as [facility] DELICA PLUS 7-27 directed ity of LANCET 30 00:00: for twice [place] as gauge Misc 00 a day Medical glucose Branch monitoring for ICD E11.9 ONETOUCH 2020-0 Yes [id number] Use as [facility] DELICA PLUS 7-27 directed ity of LANCET 30 00:00: for twice [place] as gauge Misc 00 a day Medical glucose Branch monitoring for ICD E11.9 ONETOUCH 2020-0 Yes [id number] Use as [facility] DELICA PLUS 7-27 directed ity of LANCET 30 00:00: for twice [place] as gauge Misc 00 a day Medical glucose Branch monitoring for ICD E11.9 ONETOUCH 2020-0 Yes [id number] Use as [facility] DELICA PLUS 7-27 directed ity of LANCET 30 00:00: for twice [place] as gauge Misc 00 a day Medical glucose Branch monitoring for ICD E11.9 ONETOUCH 2020-0 Yes [id number] Use as Un [facility] DELICA PLUS 7-27 directed ity of LANCET 30 00:00: for twice [place] as gauge Misc 00 a day Medical glucose Branch monitoring for ICD E11.9 ONETOUCH 2020- Yes [id number] Use as [facility] DELICA PLUS 7-27 directed ity of LANCET 30 00:00: for twice [place] as gauge Misc 00 a day Medical glucose Branch monitoring for ICD E11.9 ONETOUCH Yes [id number] Use as [facility] DELICA PLUS 7-27 directed ity of LANCET 30 00:00: for twice [place] as gauge Misc 00 a day Medical glucose Branch monitoring for ICD E11.9 ONETOUCH 0 Yes [id number] Use as [facility] DELICA PLUS 7-27 directed ity of LANCET 30 00:00: for twice [place] as gauge Misc 00 a day Medical glucose Branch monitoring for ICD E11.9 ONETOUCH 0 Yes [id number] Use as [facility] DELICA PLUS 7-27 directed ity of LANCET 30 00:00: for twice [place] as gauge Misc 00 a day Medical glucose Branch monitoring for ICD E11.9 ONETOUCH 0 Yes [id number] Use as [facility] DELICA PLUS 7-27 directed ity of LANCET 30 00:00: for twice [place] as gauge Misc 00 a day Medical glucose Branch monitoring for ICD E11.9 ONETOUCH 2020-0 Yes [id number] Use as [facility] DELICA PLUS 7-27 directed ity of LANCET 30 00:00: for twice [place] as gauge Misc 00 a day Medical glucose Branch monitoring for ICD E11.9 ONETOUCH 2020-0 Yes [id number] Use as [facility] DELICA PLUS 7-27 directed ity of LANCET 30 00:00: for twice [place] as gauge Misc 00 a day Medical glucose Branch monitoring for ICD E11.9 ONETOUCH 2020-0 Yes [id number] Use as [facility] DELICA PLUS 7-27 directed ity of LANCET 30 00:00: for twice [place] as gauge Misc 00 a day Medical glucose Branch monitoring for ICD E11.9 ONETOUCH 2020-0 Yes [id number] Use as [facility] DELICA PLUS 7-27 directed ity of LANCET 30 00:00: for twice [place] as gauge Misc 00 a day Medical glucose Branch monitoring for ICD E11.9 ONETOUCH 2020-0 Yes [id number] Use as [facility] DELICA PLUS 7-27 directed ity of LANCET 30 00:00: for twice [place] as gauge Misc 00 a day Medical glucose Branch monitoring for ICD E11.9 ONETOUCH 2020-0 Yes [id number] Use as [facility] DELICA PLUS 7-27 directed ity of LANCET 30 00:00: for twice [place] as gauge Misc 00 a day Medical glucose Branch monitoring for ICD E11.9 ONETOUCH 2020-0 Yes [id number] Use as [facility] DELICA PLUS 7-27 directed ity of LANCET 30 00:00: for twice [place] as gauge Misc 00 a day Medical glucose Branch monitoring for ICD E11.9 ONETOUCH 2020-0 Yes [id number] Use as [facility] DELICA PLUS 7-27 directed ity of LANCET 30 00:00: for twice [place] as gauge Misc 00 a day Medical glucose Branch monitoring for ICD E11.9 ONETOUCH 2020-0 Yes [id number] Use as [facility] DELICA PLUS 7-27 directed ity of LANCET 30 00:00: for twice [place] as gauge Misc 00 a day Medical glucose Branch monitoring for ICD E11.9 ONETOUCH 2020-0 Yes [id number] Use as [facility] DELICA PLUS 7-27 directed ity of LANCET 30 00:00: for twice [place] as gauge Misc 00 a day Medical glucose Branch monitoring for ICD E11.9 ONETOUCH 2020-0 Yes [id number] Use as [facility] DELICA PLUS 7-27 directed ity of LANCET 30 00:00: for twice [place] as gauge Misc 00 a day Medical glucose Branch monitoring for ICD E11.9 ONETOUCH 2020-0 Yes [id number] Use as [facility] DELICA PLUS 7-27 directed ity of LANCET 30 00:00: for twice [place] as gauge Misc 00 a day Medical glucose Branch monitoring for ICD E11.9 ONETOUCH 2020-0 Yes [id number] Use as [facility] DELICA PLUS 7-27 directed ity of LANCET 30 00:00: for twice [place] as gauge Misc 00 a day Medical glucose Branch monitoring for ICD E11.9 ONETOUCH 2020-0 Yes [id number] Use as [facility] DELICA PLUS 7-27 directed ity of LANCET 30 00:00: for twice [place] as gauge Misc 00 a day Medical glucose Branch monitoring for ICD E11.9 ONETOUCH 2020-0 Yes [id number] Use as [facility] DELICA PLUS 7-27 directed ity of LANCET 30 00:00: for twice [place] as gauge Misc 00 a day Medical glucose Branch monitoring for ICD E11.9 ONETOUCH 2020-0 Yes [id number] Use as [facility] DELICA PLUS 7-27 directed ity of LANCET 30 00:00: for twice [place] as gauge Misc 00 a day Medical glucose Branch monitoring for ICD E11.9 ONETOUCH 2020-0 Yes [id number] Use as [facility] DELICA PLUS 7-27 directed ity of LANCET 30 00:00: for twice [place] as gauge Misc 00 a day Medical glucose Branch monitoring for ICD E11.9 ONETOUCH 2020-0 Yes [id number] Use as [facility] DELICA PLUS 7-27 directed ity of LANCET 30 00:00: for twice [place] as gauge Misc 00 a day Medical glucose Branch monitoring for ICD E11.9 ONETOUCH 2020-0 Yes [id number] Use as [facility] DELICA PLUS 7-27 directed ity of LANCET 30 00:00: for twice [place] as gauge Misc 00 a day Medical glucose Branch monitoring for ICD E11.9 ONETOUCH 2020-0 Yes [id number] Use as [facility] DELICA PLUS 7-27 directed ity of LANCET 30 00:00: for twice [place] as gauge Misc 00 a day Medical glucose Branch monitoring for ICD E11.9 ONETOUCH 2020-0 Yes [id number] Use as [facility] DELICA PLUS 7-27 directed ity of LANCET 30 00:00: for twice [place] as gauge Misc 00 a day Medical glucose Branch monitoring for ICD E11.9 ONETOUCH 2020-0 Yes [id number] Use as [facility] DELICA PLUS 7-27 directed ity of LANCET 30 00:00: for twice [facility] as gauge Misc 00 a day Medical glucose Branch monitoring for ICD E11.9 ONETOUCH 2020-0 Yes [id number] Use as [facility] DELICA PLUS 7-27 directed ity of LANCET 30 00:00: for twice [place] as gauge Misc 00 a day Medical glucose Branch monitoring for ICD E11.9 ONETOUCH 2020-0 Yes [id number] Use as [facility] DELICA PLUS 7-27 directed ity of LANCET 30 00:00: for twice [place] as gauge Misc 00 a day Medical glucose Branch monitoring for ICD E11.9 ONETOUCH 2020-0 Yes [id number] Use as [facility] DELICA PLUS 7-27 directed ity of LANCET 30 00:00: for twice [place] as gauge Misc 00 a day Medical glucose Branch monitoring for ICD E11.9 ONETOUCH 2020-0 Yes [id number] Use as [facility] DELICA PLUS 7-27 directed ity of LANCET 30 00:00: for twice [facility] as gauge Misc 00 a day Medical glucose Branch monitoring for ICD E11.9 ONETOUCH 2020-0 Yes [id number] Use as [facility] DELICA PLUS 7-27 directed ity of LANCET 30 00:00: for twice [facility] as gauge Misc 00 a day Medical glucose Branch monitoring for ICD E11.9 ONETOUCH 2020-0 Yes [id number] Use as [facility] DELICA PLUS 7-27 directed ity of LANCET 30 00:00: for twice [place] as gauge Misc 00 a day Medical glucose Branch monitoring for ICD E11.9 ONETOUCH 2020-0 Yes [id number] Use as [facility] DELICA PLUS 7-27 directed ity of LANCET 30 00:00: for twice [facility] as gauge Misc 00 a day Medical glucose Branch monitoring for ICD E11.9 ONETOUCH 2020-0 Yes [id number] Use as [facility] DELICA PLUS 7-27 directed ity of LANCET 30 00:00: for twice [facility] as gauge Misc 00 a day Medical glucose Branch monitoring for ICD E11.9 diclofenac 2020-0 Yes [id number] 75mg Take 1 [facility] 75 mg EC 9-02 [id number] tablet by ity of tablet 00:00: mouth 2 [place] (two) Medical times Branch daily with meals. diclofenac 2020-0 Yes [id number] 75mg Take 1 [facility] 75 mg EC 9-02 [id number] tablet by ity of tablet 00:00: mouth 2 [place] (two) Medical times Branch daily with meals. diclofenac 2020-0 Yes [id number] 75mg Take 1 [facility] 75 mg EC 9-02 [id number] tablet by ity of tablet 00:00: mouth 2 [place] (two) Medical times Branch daily with meals. diclofenac 2020-0 Yes [id number] 75mg Take 1 [facility] 75 mg EC 9-02 [id number] tablet by ity of tablet 00:00: mouth 2 [place] (two) Medical times Branch daily with meals. diclofenac 2020-0 Yes [id number] 75mg Take 1 [facility] 75 mg EC 9-02 [id number] tablet by ity of tablet 00:00: mouth [place] (two) Medical times Branch daily with meals. diclofenac 2020-0 Yes [id number] 75mg Take 1 [facility] 75 mg EC 9-02 [id number] tablet by ity of tablet 00:00: mouth [place] (two) Medical times Branch daily with meals. diclofenac 2020-0 Yes [id number] 75mg Take 1 [facility] 75 mg EC 9-02 [id number] tablet by ity of tablet 00:00: mouth [place] (two) Medical times Branch daily with meals. diclofenac 2020-0 Yes [id number] 75mg Take 1 [facility] 75 mg EC 9-02 [id number] tablet by ity of tablet 00:00: mouth [place] (two) Medical times Branch daily with meals. diclofenac 2020-0 Yes [id number] 75mg Take 1 [facility] 75 mg EC 9-02 [id number] tablet by ity of tablet 00:00: mouth 2 [place] (two) Medical times Branch daily with meals. diclofenac 2020-0 Yes [id number] 75mg Take 1 [facility] 75 mg EC 9-02 [id number] tablet by ity of tablet 00:00: mouth 2 [place] (two) Medical times Branch daily with meals. diclofenac 2020-0 Yes [id number] 75mg Take 1 [facility] 75 mg EC 9-02 [id number] tablet by ity of tablet 00:00: mouth 2 (two) Medical times Branch daily with meals. diclofenac 2020-0 Yes [id number] 75mg Take 1 [facility] 75 mg EC 9-02 [id number] tablet by ity of tablet 00:00: mouth 2 [place] (two) Medical times Branch daily with meals. diclofenac 2020-0 Yes [id number] 75mg Take 1 [facility] 75 mg EC 9-02 [id number] tablet by ity of tablet 00:00: mouth [place] (two) Medical times Branch daily with meals. diclofenac 2020-0 Yes [id number] 75mg Take 1 [facility] 75 mg EC 9-02 [id number] tablet by ity of tablet 00:00: mouth 2 [place] (two) Medical times Branch daily with meals. diclofenac 2020-0 Yes [id number] 75mg Take 1 [facility] 75 mg EC 9-02 [id number] tablet by ity of tablet 00:00: mouth [place] (two) Medical times Branch daily with meals. diclofenac 2020-0 Yes [id number] 75mg Take 1 [facility] 75 mg EC 9-02 [id number] tablet by ity of tablet 00:00: mouth [place] (two) Medical times Branch daily with meals. diclofenac 2020-0 Yes [id number] 75mg Take 1 [facility] 75 mg EC 9-02 [id number] tablet by ity of tablet 00:00: mouth [place] (two) Medical times Branch daily with meals. diclofenac 2020-0 Yes [id number] 75mg Take 1 [facility] 75 mg EC 9-02 [id number] tablet by ity of tablet 00:00: mouth [place] (two) Medical times Branch daily with meals. diclofenac 2020-0 Yes [id number] 75mg Take 1 [facility] 75 mg EC 9-02 [id number] tablet by ity of tablet 00:00: mouth [place] (two) Medical times Branch daily with meals. diclofenac 2020-0 Yes [id number] 75mg Take 1 [facility] 75 mg EC 9-02 [id number] tablet by ity of tablet 00:00: mouth 2 [place] (two) Medical times Branch daily with meals. diclofenac 2020-0 Yes [id number] 75mg Take 1 [facility] 75 mg EC 9-02 [id number] tablet by ity of tablet 00:00: mouth 2 [place] (two) Medical times Branch daily with meals. diclofenac 2020-0 Yes [id number] 75mg Take 1 [facility] 75 mg EC 9-02 [id number] tablet by ity of tablet 00:00: mouth (two) Medical times Branch daily with meals. diclofenac 2020-0 Yes [id number] 75mg Take 1 [facility] 75 mg EC 9-02 [id number] tablet by ity of tablet 00:00: mouth (two) Medical times Branch daily with meals. diclofenac 2020-0 Yes [id number] 75mg Take 1 [facility] 75 mg EC 9-02 [id number] tablet by ity of tablet 00:00: mouth (two) Medical times Branch daily with meals. diclofenac 2020-0 Yes [id number] 75mg Take 1 [facility] 75 mg EC 9-02 [id number] tablet by ity of tablet 00:00: mouth (two) Medical times Branch daily with meals. diclofenac 2020-0 Yes [id number] 75mg Take 1 [facility] 75 mg EC 9-02 [id number] tablet by ity of tablet 00:00: mouth (two) Medical times Branch daily with meals. diclofenac 2020-0 Yes [id number] 75mg Take 1 [facility] 75 mg EC 9-02 [id number] tablet by ity of tablet 00:00: mouth (two) Medical times Branch daily with meals. diclofenac 2020-0 Yes [id number] 75mg Take 1 [facility] 75 mg EC 9-02 [id number] tablet by ity of tablet 00:00: mouth (two) Medical times Branch daily with meals. diclofenac 2020-0 Yes [id number] 75mg Take 1 [facility] 75 mg EC 9-02 [id number] tablet by ity of tablet 00:00: mouth (two) Medical times Branch daily with meals. diclofenac 2020-0 Yes [id number] 75mg Take 1 [facility] 75 mg EC 9-02 [id number] tablet by ity of tablet 00:00: mouth (two) Medical times Branch daily with meals. diclofenac 2020-0 Yes [id number] 75mg Take 1 [facility] 75 mg EC 9-02 [id number] tablet by ity of tablet 00:00: mouth 2 (two) Medical times Branch daily with meals. diclofenac 2020-0 Yes [id number] 75mg Take 1 [facility] 75 mg EC 9-02 [id number] tablet by ity of tablet 00:00: mouth 2 (two) Medical times Branch daily with meals. diclofenac 2020-0 Yes [id number] 75mg Take 1 [facility] 75 mg EC 9-02 [id number] tablet by ity of tablet 00:00: mouth 2 (two) Medical times Branch daily with meals. diclofenac 2020-0 Yes [id number] 75mg Take 1 [facility] 75 mg EC 9-02 [id number] tablet by ity of tablet 00:00: mouth 2 [place] (two) Medical times Branch daily with meals. diclofenac 2020-0 Yes [id number] 75mg Take 1 [facility] 75 mg EC 9-02 [id number] tablet by ity of tablet 00:00: mouth 2 (two) Medical times Branch daily with meals. diclofenac 2020-0 Yes [id number] 75mg Take 1 [facility] 75 mg EC 9-02 [id number] tablet by ity of tablet 00:00: mouth 2 [place] (two) Medical times Branch daily with meals. diclofenac 2020-0 Yes [id number] 75mg Take 1 [facility] 75 mg EC 9-02 [id number] tablet by ity of tablet 00:00: mouth [place] (two) Medical times Branch daily with meals. diclofenac 2020-0 Yes [id number] 75mg Take 1 [facility] 75 mg EC 9-02 [id number] tablet by ity of tablet 00:00: mouth [place] (two) Medical times Branch daily with meals. diclofenac 2020-0 Yes [id number] 75mg Take 1 [facility] 75 mg EC 9-02 [id number] tablet by ity of tablet 00:00: mouth [place] (two) Medical times Branch daily with meals. diclofenac 2020-0 Yes [id number] 75mg Take 1 [facility] 75 mg EC 9-02 [id number] tablet by ity of tablet 00:00: mouth 2 [place] (two) Medical times Branch daily with meals. diclofenac 2020-0 Yes [id number] 75mg Take 1 [facility] 75 mg EC 9-02 [id number] tablet by ity of tablet 00:00: mouth 2 [place] (two) Medical times Branch daily with meals. diclofenac 2020-0 Yes [id number] 75mg Take 1 [facility] 75 mg EC 9-02 [id number] tablet by ity of tablet 00:00: mouth 2 [place] (two) Medical times Branch daily with meals. diclofenac 2020-0 Yes [id number] 75mg Take 1 [facility] 75 mg EC 9-02 [id number] tablet by ity of tablet 00:00: mouth 2 [place] (two) Medical times Branch daily with meals. diclofenac 2020-0 Yes [id number] 75mg Take 1 [facility] 75 mg EC 9-02 [id number] tablet by ity of tablet 00:00: mouth (two) Medical times Branch daily with meals. diclofenac 2020-0 Yes [id number] 75mg Take 1 [facility] 75 mg EC 9-02 [id number] tablet by ity of tablet 00:00: mouth (two) Medical times Branch daily with meals. diclofenac 2020-0 Yes [id number] 75mg Take 1 [facility] 75 mg EC 9-02 [id number] tablet by ity of tablet 00:00: mouth (two) Medical times Branch daily with meals. diclofenac 2020-0 Yes [id number] 75mg Take 1 [facility] 75 mg EC 9-02 [id number] tablet by ity of tablet 00:00: mouth (two) Medical times Branch daily with meals. diclofenac 2020-0 Yes [id number] 75mg Take 1 [facility] 75 mg EC 9-02 [id number] tablet by ity of tablet 00:00: mouth [place] (two) Medical times Branch daily with meals. diclofenac 2020-0 Yes [id number] 75mg Take 1 [facility] 75 mg EC 9-02 [id number] tablet by ity of tablet 00:00: mouth [place] (two) Medical times Branch daily with meals. diclofenac 2020-0 Yes [id number] 75mg Take 1 [facility] 75 mg EC 9-02 [id number] tablet by ity of tablet 00:00: mouth [place] (two) Medical times Branch daily with meals. diclofenac 2020-0 Yes [id number] 75mg Take 1 [facility] 75 mg EC 9-02 [id number] tablet by ity of tablet 00:00: mouth (two) Medical times Branch daily with meals. diclofenac 2020-0 Yes [id number] 75mg Take 1 [facility] 75 mg EC 9-02 [id number] tablet by ity of tablet 00:00: mouth [place] (two) Medical times Branch daily with meals. diclofenac 2020-0 Yes [id number] 75mg Take 1 [facility] 75 mg EC 9-02 [id number] tablet by ity of tablet 00:00: mouth (two) Medical times Branch daily with meals. diclofenac 2020-0 Yes [id number] 75mg Take 1 [facility] 75 mg EC 9-02 [id number] tablet by ity of tablet 00:00: mouth 2 [place] 00 (two) Medical times Branch daily with meals. diclofenac 2020-0 Yes [id number] 75mg Take 1 [facility] 75 mg EC 9-02 [id number] tablet by ity of tablet 00:00: mouth 2 (two) Medical times Branch daily with meals. diclofenac 2020-0 Yes [id number] 75mg Take 1 [facility] 75 mg EC 9-02 [id number] tablet by ity of tablet 00:00: mouth 2 (two) Medical times Branch daily with meals. diclofenac 2020-0 Yes [id number] 75mg Take 1 [facility] 75 mg EC 9-02 [id number] tablet by ity of tablet 00:00: mouth 2 (two) Medical times Branch daily with meals. diclofenac 2020-0 Yes [id number] 75mg Take 1 [facility] 75 mg EC 9-02 [id number] tablet by ity of tablet 00:00: mouth (two) Medical times Branch daily with meals. diclofenac 2020-0 Yes [id number] 75mg Take 1 [facility] 75 mg EC 9-02 [id number] tablet by ity of tablet 00:00: mouth (two) Medical times Branch daily with meals. diclofenac 2020-0 Yes [id number] 75mg Take 1 [facility] 75 mg EC 9-02 [id number] tablet by ity of tablet 00:00: mouth (two) Medical times Branch daily with meals. diclofenac 2020-0 Yes [id number] 75mg Take 1 [facility] 75 mg EC 9-02 [id number] tablet by ity of tablet 00:00: mouth (two) Medical times Branch daily with meals. diclofenac 2020-0 Yes [id number] 75mg Take 1 [facility] 75 mg EC 9-02 [id number] tablet by ity of tablet 00:00: mouth (two) Medical times Branch daily with meals. diclofenac 2020-0 Yes [id number] 75mg Take 1 [facility] 75 mg EC 9-02 [id number] tablet by ity of tablet 00:00: mouth 2 (two) Medical times Branch daily with meals. diclofenac 2020-0 Yes [id number] 75mg Take 1 [facility] 75 mg EC 9-02 [id number] tablet by ity of tablet 00:00: mouth 2 (two) Medical times Branch daily with meals. diclofenac 2020-0 Yes [id number] 75mg Take 1 [facility] 75 mg EC 9-02 [id number] tablet by ity of tablet 00:00: mouth 2 (two) Medical times Branch daily with meals. diclofenac 2020-0 Yes [id number] 75mg Take 1 [facility] 75 mg EC 9- [id number] tablet by ity of tablet 00:00: mouth 2 (two) Medical times Branch daily with meals. diclofenac 2020-0 Yes [id number] 75mg Take 1 [facility] 75 mg EC 9-02 [id number] tablet by ity of tablet 00:00: mouth 2 (two) Medical times Branch daily with meals. diclofenac 2020-0 Yes [id number] 75mg Take 1 [facility] 75 mg EC 9-02 [id number] tablet by ity of tablet 00:00: mouth 2 (two) Medical times Branch daily with meals. diclofenac 2020-0 Yes [id number] 75mg Take 1 [facility] 75 mg EC 9-02 [id number] tablet by ity of tablet 00:00: mouth 2 (two) Medical times Branch daily with meals. diclofenac 2020-0 Yes [id number] 75mg Take 1 [facility] 75 mg EC 9- [id number] tablet by ity of tablet 00:00: mouth 2 (two) Medical times Branch daily with meals. Miscellaneo 2020-[id number] [facility] [place] [facility] Kit [facility]: [place] # 1 [facility] [place] [facility] Respironic s (okay for alternativ e brand) for nebulizer treatment Miscellaneo 2020-0 [address] [id number] [facility] [place] [facility] Kit 00:00: - [place] # 1 [facility] [place] [facility] Respironic s (okay for alternativ e brand) for nebulizer treatment Miscellaneo 2020-0 Yes [id number] J40: Un [place] [facility] 11-22 [place] ity of Supply Kit 00:00: - [place] 00 # 1 [facility] [place] [facility] Respironic s (okay for alternativ e brand) for nebulizer treatment Misc[place]aneo 2020-[id number] [facility] [place] [facility] Kit 00:00: - [place] # 1 [facility] [place] [facility] Respironic s (okay for alternativ e brand) for nebulizer treatment Miscellaneo 2020-0 Yes [id number] J40: Un [facility] 11-22 [place] ity of Supply Kit 00:00: - [place] 00 # 1 [facility] [place] [facility] Respironic s (okay for alternativ e brand) for nebulizer treatment Miscellaneo 2020-0 Yes [id number] J40: Un [facility] 11-22 [place] ity of Supply Kit 00:00: - [place]ense [place] # 1 [facility] [place] [facility] Respironic s (okay for alternativ e brand) for nebulizer treatment Miscellaneo 2020-0 Yes [id number] J40: Un [facility] 11-22 [place] ity of Supply Kit 00:00: - [place]ense [place] 00 # 1 [facility] [place] [facility] Respironic s (okay for alternativ e brand) for nebulizer treatment Miscellaneo 2020-0 Yes [id number] J40: Un [facility] 11-22 [place] ity of Supply Kit 00:00: - [place]ense [place] 00 # 1 [facility] [place] [facility] Respironic s (okay for alternativ e brand) for nebulizer treatment Miscellaneo 2020-0 Yes [id number] J40: Un [facility] 11-22 [place] ity of Supply Kit 00:00: - Dis[place]ense [place] 00 # 1 [facility] [place] [facility] Respironic s (okay for alternativ e brand) for nebulizer treatment Miscellaneo 2020-0 Yes [id number] J40: Un [facility] 11-22 [place] ity of Supply Kit 00:00: - [place]ense [place] 00 # 1 [facility] [place] [facility] Respironic s (okay for alternativ e brand) for nebulizer treatment Miscellaneo 2020-0 Yes [id number] J40: Un [facility] 11-22 [place] ity of Supply Kit 00:00: - Dispense [place] 00 # 1 [facility] [place] [facility] Respironic s (okay for alternativ e brand) for nebulizer treatment Miscellaneo 2020-0 Yes [id number] J40: Un [facility] 11-22 [place] ity of Supply Kit 00:00: - [place]ense [place] # 1 [facility] [place] [facility] Respironic s (okay for alternativ e brand) for nebulizer treatment Miscellaneo 2020-0 Yes [id number] J40: Un [facility] 11-22 [place] ity of Supply Kit 00:00: - Dis[place]ense [place] 00 # 1 [facility] [place] [facility] Respironic s (okay for alternativ e brand) for nebulizer treatment Miscellaneo 2020-0 Yes [id number] J40: Un [facility] 11-22 [place] ity of Supply Kit 00:00: - Dis[place]ense [place] 00 # 1 [facility] [place] [facility] Respironic s (okay for alternativ e brand) for nebulizer treatment Miscellaneo 2020-0 Yes [id number] J40: Un [facility] 11-22 [place] ity of Supply Kit 00:00: - Dis[place]ense [place] 00 # 1 [facility] [place] [facility] Respironic s (okay for alternativ e brand) for nebulizer treatment Miscellaneo 2020-0 Yes [id number] J40: Un [facility] 11-22 [place] ity of Supply Kit 00:00: - Dis[place]ense [place] 00 # 1 [facility] [place] [facility] Respironic s (okay for alternativ e brand) for nebulizer treatment Miscellaneo 2020-0 Yes [id number] J40: Un [facility] 11-22 [place] ity of Supply Kit 00:00: - Dispense [place] # 1 [facility] [place] [facility] Respironic s (okay for alternativ e brand) for nebulizer treatment Miscellaneo 2020-0 Yes [id number] J40: Un [facility] 11-22 [place] ity of Supply Kit 00:00: - Dispense [place] 00 # 1 [facility] [place] [facility] Respironic s (okay for alternativ e brand) for nebulizer treatment Miscellaneo 2020-0 Yes [id number] J40: Un [facility] 11-22 [place] ity of Supply Kit 00:00: - Dispense [place] 00 # 1 [facility] [place] [facility] Respironic s (okay for alternativ e brand) for nebulizer treatment Miscellaneo 2020-0 Yes [id number] J40: Un [facility] 11-22 [place] ity of Supply Kit 00:00: - Dispense [place] 00 # 1 [facility] [place] [facility] Respironic s (okay for alternativ e brand) for nebulizer treatment Miscellaneo 2020-0 Yes [id number] J40: Un [facility] 11-22 [place] ity of Supply Kit 00:00: - Dispense [place] 00 # 1 [facility] [place] [facility] Respironic s (okay for alternativ e brand) for nebulizer treatment Miscellaneo 2020-0 Yes [id number] J40: Un [facility] 11-22 [place] ity of Supply Kit 00:00: - Dispense [place] 00 # 1 [facility] [place] [facility] Respironic s (okay for alternativ e brand) for nebulizer treatment Miscellaneo 2020-0 Yes [id number] J40: Un [facility] 11-22 [place] ity of Supply Kit 00:00: - Dispense [place] 00 # 1 [facility] [place] [facility] Respironic s (okay for alternativ e brand) for nebulizer treatment Miscellaneo 2020-0 Yes [id number] J40: Un [facility] 11-22 [place] ity of Supply Kit 00:00: - Dispense [place] 00 # 1 [facility] [place] [facility] Respironic s (okay for alternativ e brand) for nebulizer treatment Miscellaneo 2020-0 Yes [id number] J40: Un [facility] 11-22 [place] ity of Supply Kit 00:00: - Dispense [place] 00 # 1 [facility] [place] [facility] Respironic s (okay for alternativ e brand) for nebulizer treatment Miscellaneo 2020-0 Yes [id number] J40: Un [facility] 11-22 [place] ity of Supply Kit 00:00: - Dispense [place] 00 # 1 [facility] [place] [facility] Respironic s (okay for alternativ e brand) for nebulizer treatment Miscellaneo 2020-0 Yes [id number] J40: Un [facility] 11-22 [place] ity of Supply Kit 00:00: - Dispense [place] 00 # 1 [facility] [place] [facility] Respironic s (okay for alternativ e brand) for nebulizer treatment Miscellaneo 2020-0 Yes [id number] J40: Un [facility] 11-22 [place] ity of Supply Kit 00:00: - Dispense [place] 00 # 1 [facility] [place] [facility] Respironic s (okay for alternativ e brand) for nebulizer treatment Miscellaneo 2020-[id number] [facility] [place] [facility] Supply Kit 00:00: - Dispense [place] 00 # 1 [facility] [place] [facility] Respironic s (okay for alternativ e brand) for nebulizer treatment Miscellaneo 2020-[id number] [facility]40[facility] [place] [facility] Supply Kit 00:00: - Dispense [place] 00 # 1 [facility] [place] [facility] Respironic s (okay for alternativ e brand) for nebulizer treatment Miscellaneo 2020-0 Yes [id number] J40: Un [facility] 11-22 [place] ity of Supply Kit 00:00: - Dispense [place] 00 # 1 [facility] [place] [facility] Respironic s (okay for alternativ e brand) for nebulizer treatment Miscellaneo 2020-0 Yes [id number] J40: Un [facility] 11-22 [place] ity of Supply Kit 00:00: - Dispense [place] 00 # 1 [facility] [place] [facility] Respironic s (okay for alternativ e brand) for nebulizer treatment Miscellaneo 2020-0 Yes [id number] J40: Un [facility] 11-22 [place] ity of Supply Kit 00:00: - Dispense [place] 00 # 1 [facility] [place] [facility] Respironic s (okay for alternativ e brand) for nebulizer treatment Miscellaneo 2020-0 Yes [id number] J40: Un [facility] 11-22 [place] ity of Supply Kit 00:00: - Dispense [place] 00 # 1 [facility] [place] [facility] Respironic s (okay for alternativ e brand) for nebulizer treatment Miscellaneo 2020-0 Yes [id number] J40: Un [facility] 11-22 [place] ity of Supply Kit 00:00: - Dispense [place] # 1 [facility] [place] [facility] Respironic s (okay for alternativ e brand) for nebulizer treatment Miscellaneo 2020-[id number] [facility] [place] [facility] Supply Kit 00:00: - Dispense [place] # 1 [facility] [place] [facility] Respironic s (okay for alternativ e brand) for nebulizer treatment Miscellaneo 2020-[id number] [facility] [place] [facility] Supply Kit 00:00: - Dispense [place] # 1 [facility] [place] [facility] Respironic s (okay for alternativ e brand) for nebulizer treatment Miscellaneo 2020-[id number] [facility] [place] [facility] Supply Kit 00:00: - Dispense [place] 00 # 1 [facility] [place] [facility] Respironic s (okay for alternativ e brand) for nebulizer treatment Miscellaneo 2020-[id number] [facility] [place] [facility] Supply Kit 00:00: - Dispense [place] 00 # 1 [facility] [place] [facility] Respironic s (okay for alternativ e brand) for nebulizer treatment Miscellaneo 2020-0 Yes [id number] J40: Un [facility] 11-22 [place] ity of Supply Kit 00:00: - Dispense [place] 00 # 1 [facility] [place] [facility] Respironic s (okay for alternativ e brand) for nebulizer treatment Miscellaneo 2020-0 Yes [id number] J40: Un [facility] 11-22 [place] ity of Supply Kit 00:00: - Dispense [place] 00 # 1 [facility] [place] [facility] Respironic s (okay for alternativ e brand) for nebulizer treatment Miscellaneo 2020-0 Yes [id number] J40: Un [facility] 11-22 [place] ity of Supply Kit 00:00: - Dispense [place] 00 # 1 [facility] [place] [facility] Respironic s (okay for alternativ e brand) for nebulizer treatment Miscellaneo 2020-[id number] [facility]40[facility] [place] [facility] Supply Kit 00:00: - Dispense [place] 00 # 1 [facility] [place] [facility] Respironic s (okay for alternativ e brand) for nebulizer treatment Miscellaneo 2020-[id number] [facility]40[facility] [place] it[facility] of Supply Kit 00:00: - Dispense [place] 00 # 1 [facility] [place] [facility] Respironic s (okay for alternativ e brand) for nebulizer treatment Miscellaneo 2020-0 Yes [id number] J40: Un [facility] 11-22 [place] ity of Supply Kit 00:00: - Dispense [place] 00 # 1 [facility] [place] [facility] Respironic s (okay for alternativ e brand) for nebulizer treatment Miscellaneo 2020-0 Yes [id number] J40: Un [facility] 11-22 [place] ity of Supply Kit 00:00: - Dispense [place] 00 # 1 [facility] [place] [facility] Respironic s (okay for alternativ e brand) for nebulizer treatment Miscellaneo 2020-0 Yes [id number] J40: Un [facility] 11-22 [place] ity of Supply Kit 00:00: - Dispense [place] 00 # 1 [facility] [place] [facility] Respironic s (okay for alternativ e brand) for nebulizer treatment Miscellaneo 2020-0 Yes [id number] J40: Un [facility] 11-22 [place] ity of Supply Kit 00:00: - Dispense [place] 00 # 1 [facility] [place] [facility] Respironic s (okay for alternativ e brand) for nebulizer treatment Miscellaneo 2020-0 Yes [id number] J40: Un [facility] 11-22 [place] ity of Supply Kit 00:00: - Dispense [place] 00 # 1 [facility] [place] [facility] Respironic s (okay for alternativ e brand) for nebulizer treatment Miscellaneo 2020-0 Yes [id number] J40: Un [facility] 11-22 [place] ity of Supply Kit 00:00: - Dispense [place] 00 # 1 [facility] [place] [facility] Respironic s (okay for alternativ e brand) for nebulizer treatment Miscellaneo 2020-0 Yes [id number] J40: Un [facility] 11-22 [place] ity of Supply Kit 00:00: - Dispense [place] 00 # 1 [facility] [place] [facility] Respironic s (okay for alternativ e brand) for nebulizer treatment Miscellaneo 2020-0 Yes [id number] J40: Un [facility] 11-22 [place] ity of Supply Kit 00:00: - Dispense [place] 00 # 1 [facility] [place] [facility] Respironic s (okay for alternativ e brand) for nebulizer treatment Miscellaneo 2020-0 Yes [id number] J40: Un [facility] 11-22 [place] ity of Supply Kit 00:00: - Dispense [place] 00 # 1 [facility] [place] [facility] Respironic s (okay for alternativ e brand) for nebulizer treatment Miscellaneo 2020-0 Yes [id number] J40: Un [facility] 11-22 [place] ity of Supply Kit 00:00: - Dispense [place] 00 # 1 [facility] Respironic s (okay for alternativ e brand) for nebulizer treatment Miscellaneo 2020-0 Yes [id number] J40: Un [facility] 11-22 [place] ity of Supply Kit 00:00: - Dispense [place] 00 # 1 [facility] Respironic s (okay for alternativ e brand) for nebulizer treatment Miscellaneo 2020-0 Yes [id number] J40: Un [facility] 11-22 [place] ity of Supply Kit 00:00: - Dispense [place] 00 # 1 [facility] Respironic s (okay for alternativ e brand) for nebulizer treatment Miscellaneo 2020-0 Yes [id number] J40: Un [facility] 11-22 [place] ity of Supply Kit 00:00: - Dispense [place] 00 # 1 [facility] Respironic s (okay for alternativ e brand) for nebulizer treatment Miscellaneo 2020-0 Yes [id number] J40: Un [facility] 11-22 [place] ity of Supply Kit 00:00: - Dispense [place] 00 # 1 [facility] Respironic s (okay for alternativ e brand) for nebulizer treatment Miscellaneo 2020-0 Yes [id number] J40: Un [facility] 11-22 [place] ity of Supply Kit 00:00: - Dispense [place] 00 # 1 [facility] Respironic s (okay for alternativ e brand) for nebulizer treatment Miscellaneo 2020-0 Yes [id number] J40: Un [facility] 11-22 [place] ity of Supply Kit 00:00: - Dispense [place] 00 # 1 [facility] Respironic s (okay for alternativ e brand) for nebulizer treatment Miscellaneo 2020-0 Yes [id number] J40: Un [facility] 11-22 [place] ity of Supply Kit 00:00: - Dispense [place] 00 # 1 [facility] Respironic s (okay for alternativ e brand) for nebulizer treatment Miscellaneo 2020-0 Yes [id number] J40: Un [facility] 11-22 [place] ity of Supply Kit 00:00: - Dispense [place] 00 # 1 [facility] Respironic s (okay for alternativ e brand) for nebulizer treatment Miscellaneo 2020-0 Yes [id number] J40: Un [facility] 11-22 [place] ity of Supply Kit 00:00: - Dispense [place] 00 # 1 [facility] Respironic s (okay for alternativ e brand) for nebulizer treatment Miscellaneo 2020-0 Yes [id number] J40: Un [facility] 11-22 [place] ity of Supply Kit 00:00: - Dispense [place] 00 # 1 [facility] Respironic s (okay for alternativ e brand) for nebulizer treatment Miscellaneo 2020-0 Yes [id number] J40: Un [facility] 11-22 [place] ity of Supply Kit 00:00: - Dispense [place] 00 # 1 [facility] Respironic s (okay for alternativ e brand) for nebulizer treatment Miscellaneo 2020-0 Yes [id number] J40: Un [facility] 11-22 [place] ity of Supply Kit 00:00: - Dispense [place] 00 # 1 [facility] Respironic s (okay for alternativ e brand) for nebulizer treatment Miscellaneo 2020-0 Yes [id number] J40: Un [facility] 11-22 [place] ity of Supply Kit 00:00: - Dispense [place] 00 # 1 [facility] Respironic s (okay for alternativ e brand) for nebulizer treatment Miscellaneo 2020-0 Yes [id number] J40: Un [facility] 11-22 [place] ity of Supply Kit 00:00: - Dispense [place] 00 # 1 [facility] Respironic s (okay for alternativ e brand) for nebulizer treatment Miscellaneo 2020-0 Yes [id number] J40: Un [facility] 4-22 [place] ity of Supply Kit 00:00: - Dispense [place] 00 # 1 [facility] Respironic s (okay for alternativ e brand) for nebulizer treatment Miscellaneo 2020-0 Yes [id number] J40: Un [facility] 4-22 [place] ity of Supply Kit 00:00: - Dispense [place] 00 # 1 [facility] Respironic s (okay for alternativ e brand) for nebulizer treatment ALCOHOL 2018-0 Yes Univers PREP PADS 6-14 ity of PadM 00:00: [place] [facility] ALCOHOL 2018-0 Yes Univers PREP PADS 6-14 ity of PadM 00:00: [place] [facility] ALCOHOL 2018-0 Yes Univers PREP PADS 6-14 ity of PadM 00:00: [place] [facility] ALCOHOL 2018-0 Yes Univers PREP PADS 6-14 ity of PadM 00:00: [place] [facility] ALCOHOL 2018-0 Yes Univers PREP PADS 6-14 ity of PadM 00:00: [place] [facility] ALCOHOL 2018-0 Yes Univers PREP PADS 6-14 ity of PadM 00:00: [place] [facility] ALCOHOL 2018-0 Yes Univers PREP PADS 6-14 ity of PadM 00:00: [place] [facility] ALCOHOL 2018-0 Yes Univers PREP PADS 6-14 ity of PadM 00:00: [place] [facility] ALCOHOL 2018-0 Yes Univers PREP PADS 6-14 ity of PadM 00:00: [place] [facility] ALCOHOL 2018-0 Yes Univers PREP PADS 6-14 ity of PadM 00:00: [place] [facility] ALCOHOL 2018-0 Yes Univers PREP PADS 6-14 ity of PadM 00:00: [place] [facility] ALCOHOL 2018-0 Yes Univers PREP PADS 6-14 ity of PadM 00:00: [place] [facility] ALCOHOL 2018-0 Yes Univers PREP PADS 6-14 ity of PadM 00:00: [place] [facility] ALCOHOL 2018-0 Yes Univers PREP PADS 6-14 ity of PadM 00:00: [place] [facility] ALCOHOL 2018-0 Yes Univers PREP PADS 6-14 ity of PadM 00:00: [place] [facility] ALCOHOL 2018-0 Yes Univers PREP PADS 6-14 ity of PadM 00:00: [place] [facility] ALCOHOL 2018-0 Yes Univers PREP PADS 6-14 ity of PadM 00:00: [place] [facility] ALCOHOL 2018-0 Yes Univers PREP PADS 6-14 ity of PadM 00:00: [place] [facility] ALCOHOL 2018-0 Yes Univers PREP PADS 6-14 ity of PadM 00:00: [place] [facility] ALCOHOL 2018-0 Yes Univers PREP PADS 6-14 ity of PadM 00:00: [place] [facility] ALCOHOL 2018-0 Yes Univers PREP PADS 6-14 ity of PadM 00:00: [place] [facility] ALCOHOL 2018-0 Yes Univers PREP PADS 6-14 ity of PadM 00:00: [place] [facility] ALCOHOL 2018-0 Yes Univers PREP PADS 6-14 ity of PadM 00:00: [place] [facility] ALCOHOL 2018-0 Yes Univers PREP PADS 6-14 ity of PadM 00:00: [place] [facility] ALCOHOL 2018-0 Yes Univers PREP PADS 6-14 ity of PadM 00:00: [place] [facility] ALCOHOL 2018-0 Yes Univers PREP PADS 6-14 ity of PadM 00:00: [place] [facility] ALCOHOL 2018-0 Yes Univers PREP PADS 6-14 ity of PadM 00:00: [place] [facility] ALCOHOL 2018-0 Yes Univers PREP PADS 6-14 ity of PadM 00:00: [place] [facility] ALCOHOL 2018-0 Yes Univers PREP PADS 6-14 ity of PadM 00:00: [place] [facility] ALCOHOL 2018-0 Yes Univers PREP PADS 6-14 ity of PadM 00:00: [place] [facility] ALCOHOL 2018-0 Yes Univers PREP PADS 6-14 ity of PadM 00:00: [place] [facility] [facility] ALCOHOL 2018-0 Yes [facility] PREP PADS 6-14 ity of PadM 00:00: [place] [facility] ALCOHOL 2018-0 Yes Univers PREP PADS 6-14 ity of PadM 00:00: [place] [facility] ALCOHOL 2018-0 Yes Univers PREP PADS 6-14 ity of PadM 00:00: [place] [facility] ALCOHOL 2018-0 Yes [facility] PREP PADS 6-14 ity of PadM 00:00: [place] [facility] ALCOHOL 2018-0 Yes [facility] PREP PADS 6-14 ity of PadM 00:00: [place] [facility] ALCOHOL 2018-0 Yes [facility] PREP PADS 6-14 ity of PadM 00:00: [place] [facility] ALCOHOL 2018-0 Yes Univers PREP PADS 6-14 ity of PadM 00:00: [place] [facility] ALCOHOL 2018-0 Yes [facility] PREP PADS 6-14 ity of PadM 00:00: [place] [facility] ALCOHOL 2018-0 Yes [facility] PREP PADS 6-14 ity of PadM 00:00: [place] [facility] ALCOHOL 2018-0 Yes [facility] PREP PADS 6-14 ity of PadM 00:00: [place] [facility] ALCOHOL 2018-0 Yes [facility] PREP PADS 6-14 ity of PadM 00:00: [place] [facility] ALCOHOL 2018-0 Yes [facility] PREP PADS 6-14 ity of PadM 00:00: [place] [facility] ALCOHOL 2018-0 Yes [facility] PREP PADS 6-14 ity of PadM 00:00: [place] [facility] ALCOHOL 2018-0 Yes [facility] PREP PADS 6-14 ity of PadM 00:00: [place] [facility] ALCOHOL 2018-0 Yes [facility] PREP PADS 6-14 ity of PadM 00:00: [place] [facility] ALCOHOL 2018-0 Yes [facility] PREP PADS 6-14 ity of PadM 00:00: [place] [facility] ALCOHOL 2018-0 Yes [facility] PREP PADS 6-14 ity of PadM 00:00: [place] [facility] ALCOHOL 2018-0 Yes [facility] PREP PADS 6-14 ity of PadM 00:00: [place] [facility] ALCOHOL 2018-0 Yes [facility] PREP PADS 6-14 ity of PadM 00:00: [place] [facility] ALCOHOL 2018-0 Yes [facility] PREP PADS 6-14 ity of PadM 00:00: [place] [facility] ALCOHOL 2018-0 Yes [facility] PREP PADS 6-14 ity of PadM 00:00: [place] [facility] ALCOHOL 2018-0 Yes [facility] PREP PADS 6-14 ity of PadM 00:00: [place] [facility] ALCOHOL 2018-0 Yes [facility] PREP PADS 6-14 ity of PadM 00:00: [place] [facility] ALCOHOL 2018-0 Yes [facility] PREP PADS 6-14 ity of PadM 00:00: [place] [facility] ALCOHOL 2018-0 Yes [facility] PREP PADS 6-14 ity of PadM 00:00: [place] [facility] ALCOHOL 2018-0 Yes [facility] PREP PADS 6-14 ity of PadM 00:00: [place] [facility] ALCOHOL 2018-0 Yes [facility] PREP PADS 6-14 ity of PadM 00:00: [facility] ALCOHOL 2018-0 Yes [facility] PREP PADS 6-14 ity of PadM 00:00: [facility] ALCOHOL 2018-0 Yes [facility] PREP PADS 6-14 ity of PadM 00:00: [facility] ALCOHOL 2018-0 Yes [facility] PREP PADS 6-14 ity of PadM 00:00: [place] [facility] ALCOHOL 2018-0 Yes [facility] PREP PADS 6-14 ity of PadM 00:00: [facility] ALCOHOL 2018-0 Yes [facility] PREP PADS 6-14 ity of PadM 00:00: [facility] ALCOHOL 2018-0 Yes [facility] PREP PADS 6-14 ity of PadM 00:00: [facility] ALCOHOL 2018-0 Yes [facility] PREP PADS 6-14 ity of PadM 00:00: [facility] ALCOHOL 2018-0 Yes [facility] PREP PADS 6-14 ity of PadM 00:00: [place] [facility] ALCOHOL 2018-0 Yes [facility] PREP PADS 6-14 ity of PadM 00:00: [place] [facility] ALCOHOL 2018-0 Yes [facility] PREP PADS 6-14 ity of PadM 00:00: [place] [facility] ALCOHOL 2018-0 Yes [facility] PREP PADS 6-14 ity of PadM 00:00: [place] [facility] ALCOHOL 2018-0 Yes [facility] PREP PADS 6-14 ity of PadM 00:00: [place] [facility] loxapine 2016-0 Yes Univers (LOXITANE) 1-20 ity of 50 mg 00:00: [place] [facility] loxapine 2016-0 Yes [facility] (LOXITANE) 1-20 ity of 50 mg 00:00: [place] [facility] loxapine 2016-0 Yes [facility] (LOXITANE) 1-20 ity of 50 mg 00:00: [place] [facility] loxapine 2015-0 Yes [facility] (LOXITANE) 1-20 ity of 50 mg 00:00: [place] [facility] loxapine 0 Yes [facility] (LOXITANE) 1-20 ity of 50 mg 00:00: [place] [facility] loxapine 0 Yes [facility] (LOXITANE) 1-20 ity of 50 mg 00:00: [place] [facility] loxapine Yes [facility] (LOXITANE) 1-20 ity of 50 mg 00:00: [place] [facility] loxapine 0 Yes [facility] (LOXITANE) 1-20 ity of 50 mg 00:00: [place] [facility] loxapine 0 Yes [facility] (LOXITANE) 1-20 ity of 50 mg 00:00: [place] [facility] loxapine Yes [facility] (LOXITANE) 1-20 ity of 50 mg 00:00: [place] [facility] loxapine Yes [facility] (LOXITANE) 1-20 ity of 50 mg 00:00: [place] [facility] loxapine Yes [facility] (LOXITANE) 1-20 ity of 50 mg 00:00: [place] [facility] loxapine Yes [facility] (LOXITANE) 1-20 ity of 50 mg 00:00: [place] [facility] loxapine Yes [facility] (LOXITANE) 1-20 ity of 50 mg 00:00: [place] [facility] loxapine Yes [facility] (LOXITANE) 1-20 ity of 50 mg 00:00: [place] [facility] loxapine Yes [facility] (LOXITANE) 1-20 ity of 50 mg 00:00: [place] [facility] loxapine 0 Yes [facility] (LOXITANE) 1-20 ity of 50 mg 00:00: [place] [facility] loxapine Yes [facility] (LOXITANE) 1-20 ity of 50 mg 00:00: [place] [facility] loxapine [id number] Yes [facility] (LOXITANE) 1-20 ity of 50 mg 00:00: [place] [facility] loxapine 0 Yes [facility] (LOXITANE) 1-20 ity of 50 mg 00:00: [place] [facility] loxapine 0 Yes [facility] (LOXITANE) 1-20 ity of 50 mg 00:00: [place] [facility] loxapine 0 Yes [facility] (LOXITANE) 1-20 ity of 50 mg 00:00: [place] [facility] loxapine 0 Yes [facility] (LOXITANE) 1-20 ity of 50 mg 00:00: [place] [facility] loxapine Yes [facility] (LOXITANE) 1-20 ity of 50 mg 00:00: [place] [facility] loxapine 0 Yes [facility] (LOXITANE) 1-20 ity of 50 mg 00:00: [place] [facility] loxapine 0 Yes [facility] (LOXITANE) 1-20 ity of 50 mg 00:00: [place] [facility] loxapine Yes [facility] (LOXITANE) 1-20 ity of 50 mg 00:00: [place] [facility] loxapine Yes [facility] (LOXITANE) 1-20 ity of 50 mg 00:00: [place] [facility] loxapine Yes [facility] (LOXITANE) 1-20 ity of 50 mg 00:00: [place] [facility] loxapine Yes [facility] (LOXITANE) 1-20 ity of 50 mg 00:00: [place] [facility] loxapine Yes [facility] (LOXITANE) 1-20 ity of 50 mg 00:00: [place] [facility] loxapine Yes [facility] (LOXITANE) 1-20 ity of 50 mg 00:00: [place] [facility] loxapine Yes [facility] (LOXITANE) 1-20 ity of 50 mg 00:00: [place] [facility] loxapine 0 Yes [facility] (LOXITANE) 1-20 ity of 50 mg 00:00: [place] [facility] loxapine Yes [facility] (LOXITANE) 1-20 ity of 50 mg 00:00: [place] [facility] loxapine [id number] Yes [facility] (LOXITANE) 1-20 ity of 50 mg 00:00: [place] [facility] loxapine Yes [facility] (LOXITANE) 1-20 ity of 50 mg 00:00: [place] [facility] loxapine 0 Yes [facility] (LOXITANE) 1-20 ity of 50 mg 00:00: [place] [facility] loxapine 0 Yes [facility] (LOXITANE) 1-20 ity of 50 mg 00:00: [place] [facility] loxapine 0 Yes [facility] (LOXITANE) 1-20 ity of 50 mg 00:00: [place] [facility] loxapine 2016-0 Yes [facility] (LOXITANE) 1-20 ity of 50 mg 00:00: [place] [facility] loxapine [id number] Yes [facility] (LOXITANE) 1-20 ity of 50 mg 00:00: [place] [facility] loxapine 0 Yes [facility] (LOXITANE) 1-20 ity of 50 mg 00:00: [place] [facility] loxapine 0 Yes [facility] (LOXITANE) 1-20 ity of 50 mg 00:00: [place] [facility] loxapine 0 Yes [facility] (LOXITANE) 1-20 ity of 50 mg 00:00: [place] [facility] loxapine 0 Yes [facility] (LOXITANE) 1-20 ity of 50 mg 00:00: [place] [facility] loxapine 0 Yes [facility] (LOXITANE) 1-20 ity of 50 mg 00:00: [place] [facility] loxapine 0 Yes [facility] (LOXITANE) 1-20 ity of 50 mg 00:00: [place] [facility] loxapine 0 Yes [facility] (LOXITANE) 1-20 ity of 50 mg 00:00: [place] [facility] loxapine 0 Yes [facility] (LOXITANE) 1-20 ity of 50 mg 00:00: [place] [facility] loxapine 0 Yes [facility] (LOXITANE) 1-20 ity of 50 mg 00:00: [place] [facility] loxapine 0 Yes [facility] (LOXITANE) 1-20 ity of 50 mg 00:00: [place] [facility] loxapine [id number] Yes [facility] (LOXITANE) 1-20 ity of 50 mg 00:00: [place] [facility] loxapine [id number] Yes [facility] (LOXITANE) 1-20 ity of 50 mg 00:00: [place] [facility] loxapine [id number] Yes [facility] (LOXITANE) 1-20 ity of 50 mg 00:00: [place] [facility] loxapine 0 Yes [facility] (LOXITANE) 1-20 ity of 50 mg 00:00: [place] [facility] loxapine 0 Yes [facility] (LOXITANE) 1-20 ity of 50 mg 00:00: [place] [facility] loxapine 0 Yes [facility] (LOXITANE) 1-20 ity of 50 mg 00:00: [place] [facility] loxapine 0 Yes [facility] (LOXITANE) 1-20 ity of 50 mg 00:00: [place] [facility] loxapine 0 Yes [facility] (LOXITANE) 1-20 ity of 50 mg 00:00: [place] [facility] loxapine 0 Yes [facility] (LOXITANE) 1-20 ity of 50 mg 00:00: [place] [facility] loxapine Yes [facility] (LOXITANE) 1-20 ity of 50 mg 00:00: [place] [facility] loxapine Yes [facility] (LOXITANE) 1-20 ity of 50 mg 00:00: [place] [facility] loxapine Yes [facility] (LOXITANE) 1-20 ity of 50 mg 00:00: [place] [facility] loxapine Yes [facility] (LOXITANE) 1-20 ity of 50 mg 00:00: [place] [facility] loxapine Yes [facility] (LOXITANE) 1-20 ity of 50 mg 00:00: [place] [facility] loxapine Yes [facility] (LOXITANE) 1-20 ity of 50 mg 00:00: [place] [facility] loxapine Yes [facility] (LOXITANE) 1-20 ity of 50 mg 00:00: [place] [facility] loxapine Yes [facility] (LOXITANE) 1-20 ity of 50 mg 00:00: [place] [facility] loxapine Yes [facility] (LOXITANE) 1-20 ity of 50 mg 00:00: [place] [facility] Immunizations Ordered Filled Immunization Date Status Comments Sour e Immunization Name Name Influenza Virus 2022-04-03 Completed [facility]it [facility] of Vaccine Recomb Quad 00:00:00 [place] [facility], Preserv and ABX Branc h Free 18-64 YRS Influenza Virus 2022-04-03 Completed [facility] of Vaccine Recomb Quad 00:00:00 [place] [facility], Preserv and ABX Branc h Free 18-64 YRS Influenza Virus 2022-04-03 Completed [facility] of Vaccine Recomb Quad 00:00:00 [place] [facility], Preserv and ABX Branc h Free 18-64 YRS Influenza Virus 2022-04-03 Completed [facility] of Vaccine Recomb Quad 00:00:00 [place] [facility], Preserv and ABX Branc h Free 18-64 YRS Influenza Virus 2022-04-03 Completed [facility] of Vaccine Recomb Quad 00:00:00 [place] [facility], Preserv and ABX Branc h Free 18-64 YRS Influenza Virus 2022-04-03 Completed [facility]it [facility] of Vaccine Recomb Quad 00:00:00 [place] [facility], Preserv and ABX Branc h Free 18-64 YRS Influenza Virus 2022-04-03 Completed [facility] of Vaccine Recomb Quad 00:00:00 [place] [facility], Preserv and ABX Branc h Free 18-64 YRS Influenza Virus 2022-04-03 Completed [facility]it y of Vaccine Recomb Quad 00:00:00 [place] [facility], Preserv and ABX Branc h Free 18-64 YRS Influenza Virus 2022-04-03 Completed [facility]it y of Vaccine Recomb Quad 00:00:00 [place] [facility], Preserv and ABX Branc h Free 18-64 YRS Influenza Virus 2022-04-03 Completed Universit y of Vaccine Recomb Quad 00:00:00 [place] [facility], Preserv and ABX Branc h Free 18-64 YRS Influenza Virus 2022-04-03 Completed [facility]it y of Vaccine Recomb Quad 00:00:00 [place] [facility], Preserv and ABX Branc h Free 18-64 YRS Influenza Virus 2022-04-03 Completed [facility]it y of Vaccine Recomb Quad 00:00:00 [place] [facility], Preserv and ABX Branc h Free 18-64 YRS Influenza Virus 2022-04-03 Completed [facility] of Vaccine Recomb Quad 00:00:00 [place] [facility], Preserv and ABX Branc h Free 18-64 YRS Influenza Virus 2022-04-03 Completed [facility]it y of Vaccine Recomb Quad 00:00:00 [place] [facility], Preserv and ABX Branc h Free 18-64 YRS Influenza Virus 2022-04-03 Completed [facility]it y of Vaccine Recomb Quad 00:00:00 [place] [facility], Preserv and ABX Branc h Free 18-64 YRS Influenza Virus 2022-04-03 Completed [facility]it y of Vaccine Recomb Quad 00:00:00 [place] [facility], Preserv and ABX Branc h Free 18-64 YRS Influenza Virus 2022-04-03 Completed [facility] y of Vaccine Recomb Quad 00:00:00 [place] [facility], Preserv and ABX Branc h Free 18-64 YRS Influenza Virus 2022-04-03 Completed [facility]it y of Vaccine Recomb Quad 00:00:00 [place] [facility], Preserv and ABX Branc h Free 18-64 YRS Influenza Virus 2022-04-03 Completed [facility]it y of Vaccine Recomb Quad 00:00:00 [place] [facility], Preserv and ABX Branc h Free 18-64 YRS Influenza Virus 2022-04-03 Completed [facility]it y of Vaccine Recomb Quad 00:00:00 [place] [facility], Preserv and ABX Branc h Free 18-64 YRS Influenza Virus 2022-04-03 Completed [facility]it y of Vaccine Recomb Quad 00:00:00 [place] [facility], Preserv and ABX Branc h Free 18-64 YRS Influenza Virus 2022-04-03 Completed [facility]it [facility] of Vaccine Recomb Quad 00:00:00 [place] [facility], Preserv and ABX Branc h Free 18-64 YRS Influenza Virus 2022-04-03 Completed [facility]it y of Vaccine Recomb Quad 00:00:00 [place] [facility], Preserv and ABX Branc h Free 18-64 YRS Influenza Virus 2022-04-03 Completed [facility]it y of Vaccine Recomb Quad 00:00:00 [place] [facility], Preserv and ABX Branc h Free 18-64 YRS Influenza Virus 2022-04-03 Completed [facility] of Vaccine Recomb Quad 00:00:00 [place] [facility], Preserv and ABX Branc h Free 18-64 YRS Influenza Virus 2022-04-03 Completed [facility] of Vaccine Recomb Quad 00:00:00 [place] [facility], Preserv and ABX Branc h Free 18-64 YRS Influenza Virus 2022-04-03 Completed [facility] of Vaccine Recomb Quad 00:00:00 [place] [facility], Preserv and ABX Branc h Free 18-64 YRS Influenza Virus 2022-04-03 Completed [facility]it y of Vaccine Recomb Quad 00:00:00 [place] [facility], Preserv and ABX Branc h Free 18-64 YRS Influenza Virus 2022-04-03 Completed [facility] of Vaccine Recomb Quad 00:00:00 [place] [facility], Preserv and ABX Branc h Free 18-64 YRS Influenza Virus 2022-04-03 Completed [facility] of Vaccine Recomb Quad 00:00:00 [place] [facility], Preserv and ABX Branc h Free 18-64 YRS Influenza Virus 2022-04-03 Completed [facility] of Vaccine Recomb Quad 00:00:00 [place] [facility], Preserv and ABX Branc h Free 18-64 YRS Influenza Virus 2022-04-03 Completed [facility] of Vaccine Recomb Quad 00:00:00 [place] [facility], Preserv and ABX Branc h Free 18-64 YRS Influenza Virus 2022-04-03 Completed [facility] of Vaccine Recomb Quad 00:00:00 [place] [facility], Preserv and ABX Branc h Free 18-64 YRS Influenza Virus 2022-04-03 Completed [facility] of Vaccine Recomb Quad 00:00:00 [place] [facility], Preserv and ABX Branc h Free 18-64 YRS Influenza Virus 2022-04-03 Completed [facility] of Vaccine Recomb Quad 00:00:00 [place] [facility], Preserv and ABX Branc h Free 18-64 YRS Influenza Virus 2022-04-03 Completed [facility] of Vaccine Recomb Quad 00:00:00 [place] [facility], Preserv and ABX Branc h Free 18-64 YRS Influenza Virus 2022-04-03 Completed [facility] of Vaccine Recomb Quad 00:00:00 [place] [facility], Preserv and ABX Branc h Free 18-64 YRS Influenza Virus 2022-04-03 Completed [facility] of Vaccine Recomb Quad 00:00:00 [place] [facility], Preserv and ABX Branc h Free 18-64 YRS Influenza Virus 2022-04-03 Completed [facility] of Vaccine Recomb Quad 00:00:00 [place] [facility], Preserv and ABX Branc h Free 18-64 YRS Influenza Virus 2022-04-03 Completed [facility] of Vaccine Recomb Quad 00:00:00 [place] [facility], Preserv and ABX Branc h Free 18-64 YRS Influenza Virus 2022-04-03 Completed [facility] of Vaccine Recomb Quad 00:00:00 [place] [facility], Preserv and ABX Branc h Free 18-64 YRS Influenza Virus 2022-04-03 Completed [facility] of Vaccine Recomb Quad 00:00:00 [place] [facility], Preserv and ABX Branc h Free 18-64 YRS Influenza Virus 2022-04-03 Completed [facility] of Vaccine Recomb Quad 00:00:00 [place] [facility], Preserv and ABX Branc h Free 18-64 YRS Influenza Virus 2022-04-03 Completed [facility] of Vaccine Recomb Quad 00:00:00 [place] [facility], Preserv and ABX Branc h Free 18-64 YRS Influenza Virus 2022-04-03 Completed [facility] of Vaccine Recomb Quad 00:00:00 [place] [facility], Preserv and ABX Branc h Free 18-64 YRS Influenza Virus 2022-04-03 Completed [facility] of Vaccine Recomb Quad 00:00:00 [place] [facility], Preserv and ABX Branc h Free 18-64 YRS Influenza Virus 2022-04-03 Completed [facility] of Vaccine Recomb Quad 00:00:00 [place] [facility], Preserv and ABX Branc h Free 18-64 YRS Influenza Virus 2022-04-03 Completed [facility] of Vaccine Recomb Quad 00:00:00 [place] [facility], Preserv and ABX Branc h Free 18-64 YRS Influenza Virus 2022-04-03 Completed [facility] of Vaccine Recomb Quad 00:00:00 [place] [facility], Preserv and ABX Branc h Free 18-64 YRS Influenza Virus 2022-04-03 Completed [facility] of Vaccine Recomb Quad 00:00:00 [place] [facility], Preserv and ABX Branc h Free 18-64 YRS Influenza Virus 2022-04-03 Completed [facility] of Vaccine Recomb Quad 00:00:00 [place] [facility], Preserv and ABX Branc h Free 18-64 YRS Influenza Virus 2022-04-03 Completed [facility] of Vaccine Recomb Quad 00:00:00 [place] [facility], Preserv and ABX Branc h Free 18-64 YRS Influenza Virus 2022-04-03 Completed [facility] of Vaccine Recomb Quad 00:00:00 [place] [facility], Preserv and ABX Branc h Free 18-64 YRS Influenza Virus 2022-04-03 Completed [facility] of Vaccine Recomb Quad 00:00:00 [place] [facility], Preserv and ABX Branc h Free 18-64 YRS Influenza Virus 2022-04-03 Completed [facility] of Vaccine Recomb Quad 00:00:00 [place] [facility], Preserv and ABX Branc h Free 18-64 YRS Influenza Virus 2022-04-03 Completed [facility] of Vaccine Recomb Quad 00:00:00 [place] [facility], Preserv and ABX Branc h Free 18-64 YRS Influenza Virus 2022-04-03 Completed [facility] of Vaccine Recomb Quad 00:00:00 [place] [facility], Preserv and ABX Branc h Free 18-64 YRS Influenza Virus 2022-04-03 Completed [facility] of Vaccine Recomb Quad 00:00:00 [place] [facility], Preserv and ABX Branc h Free 18-64 YRS SARS-COV-2 COVID-19 2021-06-04 Completed Unive rsity of MODERNA 0.25ML 00:00:00 [place] [facility] SARS-COV-2 COVID-19 2021-06-04 Completed Unive rsity of MODERNA 0.25ML 00:00:00 [place] [facility] SARS-COV-2 COVID-19 2021-06-04 Completed Unive rsity of MODERNA 0.25ML 00:00:00 [place] [facility] SARS-COV-2 COVID-19 2021-06-04 Completed Unive rsity of MODERNA 0.25ML 00:00:00 [place] [facility] SARS-COV-2 COVID-19 2021-06-04 Completed Unive rsity of MODERNA 0.25ML 00:00:00 [place] [facility] SARS-COV-2 COVID-19 2021-06-04 Completed Unive rsity of MODERNA 0.25ML 00:00:00 [place] [facility] SARS-COV-2 COVID-19 2021-06-04 Completed Unive rsity of MODERNA 0.25ML 00:00:00 [place] [facility] SARS-COV-2 COVID-19 2021-06-04 Completed Unive rsity of MODERNA 0.25ML 00:00:00 [place] [facility] SARS-COV-2 COVID-19 2021-06-04 Completed Unive rsity of MODERNA 0.25ML 00:00:00 [place] [facility] SARS-COV-2 COVID-19 2021-06-04 Completed Unive rsity of MODERNA 0.25ML 00:00:00 [place] [facility] SARS-COV-2 COVID-19 2021-06-04 Completed Unive rsity of MODERNA 0.25ML 00:00:00 [place] [facility] SARS-COV-2 COVID-19 2021-06-04 Completed Unive rsity of MODERNA 0.25ML 00:00:00 [place] [facility] SARS-COV-2 COVID-19 2021-06-04 Completed Unive rsity of MODERNA 0.25ML 00:00:00 [place] [facility] SARS-COV-2 COVID-19 2021-06-04 Completed Unive rsity of MODERNA 0.25ML 00:00:00 [place] [facility] SARS-COV-2 COVID-19 2021-06-04 Completed Unive rsity of MODERNA 0.25ML 00:00:00 [place] [facility] SARS-COV-2 COVID-19 2021-06-04 Completed Unive rsity of MODERNA 0.25ML 00:00:00 [place] [facility] SARS-COV-2 COVID-19 2021-06-04 Completed Unive rsity of MODERNA 0.25ML 00:00:00 [place] [facility] SARS-COV-2 COVID-19 2021-06-04 Completed Unive rsity of MODERNA 0.25ML 00:00:00 [place] [facility] SARS-COV-2 COVID-19 2021-06-04 Completed Unive rsity of MODERNA 0.25ML 00:00:00 [place] [facility] SARS-COV-2 COVID-19 2021-06-04 Completed Unive rsity of MODERNA 0.25ML 00:00:00 [place] [facility] SARS-COV-2 COVID-19 2021-06-04 Completed Unive rsity of MODERNA 0.25ML 00:00:00 [place] [facility] SARS-COV-2 COVID-19 2021-06-04 Completed Unive rsity of MODERNA 0.25ML 00:00:00 [place] [facility] VACC[facility] SARS-COV-2 COVID-19 2021-06-04 Completed Unive rsity of MODERNA 0.25ML 00:00:00 [place] [facility] VACC[facility] SARS-COV-2 COVID-19 2021-06-04 Completed Unive rsity of MODERNA 0.25ML 00:00:00 [place] [facility] SARS-COV-2 COVID-19 2021-06-04 Completed Unive rsity of MODERNA 0.25ML 00:00:00 [place] [facility] SARS-COV-2 COVID-19 2021-06-04 Completed Unive rsity of MODERNA 0.25ML 00:00:00 [place] [facility] SARS-COV-2 COVID-19 2021-06-04 Completed Unive rsity of MODERNA 0.25ML 00:00:00 [place] [facility] SARS-COV-2 COVID-19 2021-06-04 Completed [facility]ive rsity of MODERNA 0.25ML 00:00:00 [place] [facility] SARS-COV-2 COVID-19 2021-06-04 Completed [facility] rsity of MODERNA 0.25ML 00:00:00 [place] [facility] SARS-COV-2 COVID-19 2021-06-04 Completed [facility]ive rsity of MODERNA 0.25ML 00:00:00 [place] [facility] SARS-COV-2 COVID-19 2021-06-04 Completed [facility]ive rsity of MODERNA 0.25ML 00:00:00 [place] [facility] SARS-COV-2 COVID-19 2021-06-04 Completed [facility] rsity of MODERNA 0.25ML 00:00:00 [place] [facility]ACC[facility] SARS-COV-2 COVID-19 2021-06-04 Completed [facility]ive rsity of MODERNA 0.25ML 00:00:00 [place] [facility] SARS-COV-2 COVID-19 2021-06-04 Completed [facility]ive rsity of MODERNA 0.25ML 00:00:00 [place] [facility] SARS-COV-2 COVID-19 2021-06-04 Completed [facility] rsity of MODERNA 0.25ML 00:00:00 [place] [facility] SARS-COV-2 COVID-19 2021-06-04 Completed [facility] rsity of MODERNA 0.25ML 00:00:00 [place] [facility] SARS-COV-2 COVID-19 2021-06-04 Completed [facility] rsity of MODERNA 0.25ML 00:00:00 [place] [facility] SARS-COV-2 COVID-19 2021-06-04 Completed [facility] rsity of MODERNA 0.25ML 00:00:00 [place] [facility] SARS-COV-2 COVID-19 2021-06-04 Completed [facility]ive rsity of MODERNA 0.25ML 00:00:00 [place] [facility] SARS-COV-2 COVID-19 2021-06-04 Completed [facility] rsity of MODERNA 0.25ML 00:00:00 [place] [facility] SARS-COV-2 COVID-19 2021-06-04 Completed [facility] rsity of MODERNA 0.25ML 00:00:00 [place] [facility] SARS-COV-2 COVID-19 2021-06-04 Completed [facility] rsity of MODERNA 0.25ML 00:00:00 [place] [facility] SARS-COV-2 COVID-19 2021-06-04 Completed [facility] rsity of MODERNA 0.25ML 00:00:00 [place] [facility] SARS-COV-2 COVID-19 2021-06-04 Completed [facility] rsity of MODERNA 0.25ML 00:00:00 [place] [facility] SARS-COV-2 COVID-19 2021-06-04 Completed [facility] rsity of MODERNA 0.25ML 00:00:00 [place] [facility] SARS-COV-2 COVID-19 2021-06-04 Completed [facility] rsity of MODERNA 0.25ML 00:00:00 [place] [facility] SARS-COV-2 COVID-19 2021-06-04 Completed [facility] rsity of MODERNA 0.25ML 00:00:00 [place] [facility] SARS-COV-2 COVID-19 2021-06-04 Completed [facility] rsity of MODERNA 0.25ML 00:00:00 [place] [facility] SARS-COV-2 COVID-19 2021-06-04 Completed [facility] rsity of MODERNA 0.25ML 00:00:00 [place] [facility] SARS-COV-2 COVID-19 2021-06-04 Completed [facility] rsity of MODERNA 0.25ML 00:00:00 [place] [facility] SARS-COV-2 COVID-19 2021-06-04 Completed [facility] MODERNA 0.25ML 00:00:00 [facility] SARS-COV-2 COVID-19 2021-06-04 Completed [facility] MODERNA 0.25ML 00:00:00 [place] [facility] SARS-COV-2 COVID-19 2021-06-04 Completed [facility] MODERNA 0.25ML 00:00:00 [place] [facility]ACC[facility] SARS-COV-2 COVID-19 2021-06-04 Completed [facility] MODERNA 0.25ML 00:00:00 [place] [facility]ACC[facility] SARS-COV-2 COVID-19 2021-06-04 Completed [facility] MODERNA 0.25ML 00:00:00 [place] [facility]ACC[facility] SARS-COV-2 COVID-19 2021-06-04 Completed [facility] MODERNA 0.25ML 00:00:00 [place] [facility]ACC[facility] SARS-COV-2 COVID-19 2021-06-04 Completed [facility] MODERNA 0.25ML 00:00:00 [place] [facility]ACC[facility] SARS-COV-2 COVID-19 2021-06-04 Completed [facility] MODERNA 0.25ML 00:00:00 [place] [facility]ACC[facility] SARS-COV-2 COVID-19 2021-06-04 Completed [facility] MODERNA 0.25ML 00:00:00 [place] [facility]ACC[facility] SARS-COV-2 COVID-19 2021-06-04 Completed [facility] MODERNA 0.25ML 00:00:00 [place] [facility]ACC[facility] SARS-COV-2 COVID-19 2021-06-04 Completed [facility] MODERNA 0.25ML 00:00:00 [place] [facility]ACC[facility] SARS-COV-2 COVID-19 2021-06-04 Completed [facility] MODERNA 0.25ML 00:00:00 [place] [facility] VACC[facility] SARS-COV-2 COVID-19 2021-06-04 Completed [facility] MODERNA 0.25ML 00:00:00 [place] [facility]ACC[facility] SARS-COV-2 COVID-19 2021-06-04 Completed [facility] MODERNA 0.25ML 00:00:00 [place] [facility]ACC[facility] SARS-COV-2 COVID-19 2021-06-04 Completed [facility] MODERNA 0.25ML 00:00:00 [place] [facility]ACC[facility] SARS-COV-2 COVID-19 2021-06-04 Completed [facility] MODERNA 0.25ML 00:00:00 [place] [facility] VACC[facility] SARS-COV-2 COVID-19 2021-06-04 Completed [facility] MODERNA 0.25ML 00:00:00 [place] [facility] VACC[facility] SARS-COV-2 COVID-19 2021-06-04 Completed [facility] MODERNA 0.25ML 00:00:00 [place] [facility]ACC[facility] SARS-COV-2 COVID-19 2021-06-04 Completed [facility] MODERNA 0.25ML 00:00:00 [place] [facility]ACC[facility] SARS-COV-2 COVID-19 2021-06-04 Completed [facility] MODERNA 0.25ML 00:00:00 [place] [facility]ACC[facility] SARS-COV-2 COVID-19 2020-09-06 Completed [facility] MODERNA VACCINE 00:00:00 [place] [facility] SARS-COV-2 COVID-19 2020-09-06 Completed [facility] MODERNA VACCINE 00:00:00 [place] [facility] SARS-COV-2 COVID-19 2020-09-06 Completed [facility] MODERNA VACCINE 00:00:00 [place] [facility] SARS-COV-2 COVID-19 2020-09-06 Completed [facility] MODERNA VACCINE 00:00:00 [place] [facility] SARS-COV-2 COVID-19 2020-09-06 Completed [facility] MODERNA 12+ YRS 00:00:00 [place] [facility] SARS-COV-2 COVID-19 2020-09-06 Completed [facility] MODERNA 12+ YRS 00:00:00 [place] [facility] SARS-COV-2 COVID-19 2020-09-06 Completed [facility] MODERNA 12+ YRS 00:00:00 [place] [facility] SARS-COV-2 COVID-19 2020-09-06 Completed [facility] MODERNA 12+ YRS 00:00:00 [place] [facility] SARS-COV-2 COVID-19 2020-09-06 Completed [facility] MODERNA 12+ YRS 00:00:00 [place] [facility] SARS-COV-2 COVID-19 2020-09-06 Completed [facility] MODERNA 12+ YRS 00:00:00 [place] [facility] SARS-COV-2 COVID-19 2020-09-06 Completed [facility] MODERNA 12+ YRS 00:00:00 [place] [facility] SARS-COV-2 COVID-19 2020-09-06 Completed [facility] MODERNA 12+ YRS 00:00:00 [place] [facility] SARS-COV-2 COVID-19 2020-09-06 Completed [facility] MODERNA 12+ YRS 00:00:00 [place] [facility] SARS-COV-2 COVID-19 2020-09-06 Completed [facility] MODERNA 12+ YRS 00:00:00 [place] [facility] SARS-COV-2 COVID-19 2020-09-06 Completed [facility] MODERNA 12+ YRS 00:00:00 [place] [facility] SARS-COV-2 COVID-19 2020-09-06 Completed [facility] MODERNA 12+ YRS 00:00:00 [place] [facility] SARS-COV-2 COVID-19 2020-09-06 Completed [facility] MODERNA 12+ YRS 00:00:00 [place] [facility] SARS-COV-2 COVID-19 2020-09-06 Completed [facility] MODERNA 12+ YRS 00:00:00 [place] [facility] SARS-COV-2 COVID-19 2020-09-06 Completed [facility] MODERNA 12+ YRS 00:00:00 [place] [facility] SARS-COV-2 COVID-19 2020-09-06 Completed [facility] MODERNA 12+ YRS 00:00:00 [place] [facility] SARS-COV-2 COVID-19 2020-09-06 Completed [facility] MODERNA 12+ YRS 00:00:00 [place] [facility] SARS-COV-2 COVID-19 2020-09-06 Completed [facility] MODERNA 12+ YRS 00:00:00 [place] [facility] SARS-COV-2 COVID-19 2020-09-06 Completed [facility] MODERNA 12+ YRS 00:00:00 [place] [facility] SARS-COV-2 COVID-19 2020-09-06 Completed [facility] MODERNA 12+ YRS 00:00:00 [place] [facility] SARS-COV-2 COVID-19 2020-09-06 Completed [facility] MODERNA 12+ YRS 00:00:00 [place] [facility] SARS-COV-2 COVID-19 2020-09-06 Completed [facility] MODERNA 12+ YRS 00:00:00 [place] [facility] SARS-COV-2 COVID-19 2020-09-06 Completed [facility] MODERNA 12+ YRS 00:00:00 [place] [facility] SARS-COV-2 COVID-19 2020-09-06 Completed [facility] MODERNA 12+ YRS 00:00:00 [place] [facility] SARS-COV-2 COVID-19 2020-09-06 Completed [facility] MODERNA 12+ YRS 00:00:00 [place] [facility] SARS-COV-2 COVID-19 2020-09-06 Completed [facility] MODERNA 12+ YRS 00:00:00 [place] [facility] SARS-COV-2 COVID-19 2020-09-06 Completed [facility] MODERNA 12+ YRS 00:00:00 [place] [facility] SARS-COV-2 COVID-19 2020-09-06 Completed [facility] MODERNA 12+ YRS 00:00:00 [place] [facility] SARS-COV-2 COVID-19 2020-09-06 Completed [facility] MODERNA 12+ YRS 00:00:00 [place] [facility] SARS-COV-2 COVID-19 2020-09-06 Completed [facility] MODERNA 12+ YRS 00:00:00 [place] [facility] SARS-COV-2 COVID-19 2020-09-06 Completed [facility] MODERNA 12+ YRS 00:00:00 [place] [facility] SARS-COV-2 COVID-19 2020-09-06 Completed [facility] MODERNA 12+ YRS 00:00:00 [place] [facility] SARS-COV-2 COVID-19 2020-09-06 Completed [facility] MODERNA 12+ YRS 00:00:00 [place] [facility] SARS-COV-2 COVID-19 2020-09-06 Completed [facility] MODERNA 12+ YRS 00:00:00 [place] [facility] SARS-COV-2 COVID-19 2020-09-06 Completed [facility] MODERNA 12+ YRS 00:00:00 [place] [facility] SARS-COV-2 COVID-19 2020-09-06 Completed [facility] MODERNA 12+ YRS 00:00:00 [place] [facility] SARS-COV-2 COVID-19 2020-09-06 Completed [facility] MODERNA 12+ YRS 00:00:00 [place] [facility] SARS-COV-2 COVID-19 2020-09-06 Completed [facility] MODERNA 12+ YRS 00:00:00 [place] [facility] SARS-COV-2 COVID-19 2020-09-06 Completed [facility] MODERNA 12+ YRS 00:00:00 [place] [facility] SARS-COV-2 COVID-19 2020-09-06 Completed [facility] MODERNA 12+ YRS 00:00:00 [place] [facility] SARS-COV-2 COVID-19 2020-09-06 Completed [facility] MODERNA 12+ YRS 00:00:00 [place] [facility] SARS-COV-2 COVID-19 2020-09-06 Completed [facility] MODERNA 12+ YRS 00:00:00 [place] [facility] SARS-COV-2 COVID-19 2020-09-06 Completed [facility] MODERNA 12+ YRS 00:00:00 [place] [facility] SARS-COV-2 COVID-19 2020-09-06 Completed [facility] MODERNA 12+ YRS 00:00:00 [place] [facility] SARS-COV-2 COVID-19 2020-09-06 Completed [facility] MODERNA 12+ YRS 00:00:00 [place] [facility] SARS-COV-2 COVID-19 2020-09-06 Completed [facility] MODERNA 12+ YRS 00:00:00 [place] [facility] SARS-COV-2 COVID-19 2020-09-06 Completed [facility] MODERNA 12+ YRS 00:00:00 [place] [facility] SARS-COV-2 COVID-19 2020-09-06 Completed [facility] MODERNA 12+ YRS 00:00:00 [place] [facility] SARS-COV-2 COVID-19 2020-09-06 Completed [facility] MODERNA 12+ YRS 00:00:00 [place] [facility] SARS-COV-2 COVID-19 2020-09-06 Completed [facility] MODERNA 12+ YRS 00:00:00 [place] [facility] SARS-COV-2 COVID-19 2020-09-06 Completed [facility] MODERNA 12+ YRS 00:00:00 [place] [facility] SARS-COV-2 COVID-19 2020-09-06 Completed [facility] MODERNA 12+ YRS 00:00:00 [place] [facility] SARS-COV-2 COVID-19 2020-09-06 Completed [facility] MODERNA 12+ YRS 00:00:00 [place] [facility] SARS-COV-2 COVID-19 2020-09-06 Completed [facility] MODERNA 12+ YRS 00:00:00 [place] [facility] SARS-COV-2 COVID-19 2020-09-06 Completed [facility] MODERNA 12+ YRS 00:00:00 [place] [facility] SARS-COV-2 COVID-19 2020-09-06 Completed [facility] MODERNA 12+ YRS 00:00:00 [place] [facility] SARS-COV-2 COVID-19 2020-09-06 Completed [facility] MODERNA 12+ YRS 00:00:00 [place] [facility] SARS-COV-2 COVID-19 2020-09-06 Completed [facility] MODERNA 12+ YRS 00:00:00 [place] [facility] SARS-COV-2 COVID-19 2020-09-06 Completed [facility] MODERNA 12+ YRS 00:00:00 [place] [facility] SARS-COV-2 COVID-19 2020-09-06 Completed [facility] MODERNA 12+ YRS 00:00:00 [place] [facility] SARS-COV-2 COVID-19 2020-09-06 Completed [facility] MODERNA 12+ YRS 00:00:00 [place] [facility] SARS-COV-2 COVID-19 2020-09-06 Completed [facility] MODERNA 12+ YRS 00:00:00 [place] [facility] SARS-COV-2 COVID-19 2020-09-06 Completed [facility] MODERNA 12+ YRS 00:00:00 [place] [facility] SARS-COV-2 COVID-19 2020-09-06 Completed [facility] MODERNA 12+ YRS 00:00:00 [place] [facility] SARS-COV-2 COVID-19 2020-09-06 Completed [facility] MODERNA 12+ YRS 00:00:00 [place] [facility] SARS-COV-2 COVID-19 2020-09-06 Completed [facility] MODERNA 12+ YRS 00:00:00 [place] [facility] SARS-COV-2 COVID-19 2020-08-09 Completed [facility] MODERNA VACCINE 00:00:00 [place] [facility] SARS-COV-2 COVID-19 2020-08-09 Completed [facility] MODERNA VACCINE 00:00:00 [place] [facility] SARS-COV-2 COVID-19 2020-08-09 Completed [facility] MODERNA VACCINE 00:00:00 [place] [facility] SARS-COV-2 COVID-19 2020-08-09 Completed [facility] MODERNA VACCINE 00:00:00 [place] [facility] SARS-COV-2 COVID-19 2020-08-09 Completed [facility] MODERNA 12+ YRS 00:00:00 [place] [facility] SARS-COV-2 COVID-19 2020-08-09 Completed [facility] MODERNA 12+ YRS 00:00:00 [place] [facility] SARS-COV-2 COVID-19 2020-08-09 Completed [facility] MODERNA 12+ YRS 00:00:00 [place] [facility] SARS-COV-2 COVID-19 2020-08-09 Completed [facility] MODERNA 12+ YRS 00:00:00 [place] [facility] SARS-COV-2 COVID-19 2020-08-09 Completed [facility] MODERNA 12+ YRS 00:00:00 [place] [facility] SARS-COV-2 COVID-19 2020-08-09 Completed [facility] MODERNA 12+ YRS 00:00:00 [place] [facility] SARS-COV-2 COVID-19 2020-08-09 Completed [facility] MODERNA 12+ YRS 00:00:00 [place] [facility] SARS-COV-2 COVID-19 2020-08-09 Completed [facility] MODERNA 12+ YRS 00:00:00 [place] [facility] SARS-COV-2 COVID-19 2020-08-09 Completed [facility] MODERNA 12+ YRS 00:00:00 [place] [facility] SARS-COV-2 COVID-19 2020-08-09 Completed [facility] MODERNA 12+ YRS 00:00:00 [place] [facility] SARS-COV-2 COVID-19 2020-08-09 Completed [facility] MODERNA 12+ YRS 00:00:00 [place] [facility] SARS-COV-2 COVID-19 2020-08-09 Completed [facility] MODERNA 12+ YRS 00:00:00 [place] [facility] SARS-COV-2 COVID-19 2020-08-09 Completed [facility] MODERNA 12+ YRS 00:00:00 [place] [facility] SARS-COV-2 COVID-19 2020-08-09 Completed [facility] MODERNA 12+ YRS 00:00:00 [place] [facility] SARS-COV-2 COVID-19 2020-08-09 Completed [facility] MODERNA 12+ YRS 00:00:00 [place] [facility] SARS-COV-2 COVID-19 2020-08-09 Completed [facility] MODERNA 12+ YRS 00:00:00 [place] [facility] SARS-COV-2 COVID-19 2020-08-09 Completed [facility] MODERNA 12+ YRS 00:00:00 [place] [facility] SARS-COV-2 COVID-19 2020-08-09 Completed [facility] MODERNA 12+ YRS 00:00:00 [place] [facility] SARS-COV-2 COVID-19 2020-08-09 Completed [facility] MODERNA 12+ YRS 00:00:00 [place] [facility] SARS-COV-2 COVID-19 2020-08-09 Completed [facility] MODERNA 12+ YRS 00:00:00 [place] [facility] SARS-COV-2 COVID-19 2020-08-09 Completed [facility] MODERNA 12+ YRS 00:00:00 [place] [facility] SARS-COV-2 COVID-19 2020-08-09 Completed [facility] MODERNA 12+ YRS 00:00:00 [place] [facility] SARS-COV-2 COVID-19 2020-08-09 Completed [facility] MODERNA 12+ YRS 00:00:00 [place] [facility] SARS-COV-2 COVID-19 2020-08-09 Completed [facility] MODERNA 12+ YRS 00:00:00 [place] [facility] SARS-COV-2 COVID-19 2020-08-09 Completed [facility] MODERNA 12+ YRS 00:00:00 [place] [facility] SARS-COV-2 COVID-19 2020-08-09 Completed [facility] MODERNA 12+ YRS 00:00:00 [place] [facility] SARS-COV-2 COVID-19 2020-08-09 Completed [facility] MODERNA 12+ YRS 00:00:00 [place] [facility] SARS-COV-2 COVID-19 2020-08-09 Completed [facility] MODERNA 12+ YRS 00:00:00 [place] [facility] SARS-COV-2 COVID-19 2020-08-09 Completed [facility] MODERNA 12+ YRS 00:00:00 [place] [facility] SARS-COV-2 COVID-19 2020-08-09 Completed [facility] MODERNA 12+ YRS 00:00:00 [place] [facility] SARS-COV-2 COVID-19 2020-08-09 Completed [facility] MODERNA 12+ YRS 00:00:00 [place] [facility] SARS-COV-2 COVID-19 2020-08-09 Completed [facility] MODERNA 12+ YRS 00:00:00 [place] [facility] SARS-COV-2 COVID-19 2020-08-09 Completed [facility] MODERNA 12+ YRS 00:00:00 [place] [facility] SARS-COV-2 COVID-19 2020-08-09 Completed [facility] MODERNA 12+ YRS 00:00:00 [place] [facility] SARS-COV-2 COVID-19 2020-08-09 Completed [facility] MODERNA 12+ YRS 00:00:00 [place] [facility] SARS-COV-2 COVID-19 2020-08-09 Completed [facility] MODERNA 12+ YRS 00:00:00 [place] [facility] SARS-COV-2 COVID-19 2020-08-09 Completed [facility] MODERNA 12+ YRS 00:00:00 [place] [facility] SARS-COV-2 COVID-19 2020-08-09 Completed [facility] MODERNA 12+ YRS 00:00:00 [place] [facility] SARS-COV-2 COVID-19 2020-08-09 Completed [facility] MODERNA 12+ YRS 00:00:00 [place] [facility] SARS-COV-2 COVID-19 2020-08-09 Completed [facility] MODERNA 12+ YRS 00:00:00 [place] [facility] SARS-COV-2 COVID-19 2020-08-09 Completed [facility] MODERNA 12+ YRS 00:00:00 [place] [facility] SARS-COV-2 COVID-19 2020-08-09 Completed [facility] MODERNA 12+ YRS 00:00:00 [place] [facility] SARS-COV-2 COVID-19 2020-08-09 Completed [facility] MODERNA 12+ YRS 00:00:00 [place] [facility] SARS-COV-2 COVID-19 2020-08-09 Completed [facility] MODERNA 12+ YRS 00:00:00 [place] [facility] SARS-COV-2 COVID-19 2020-08-09 Completed [facility] MODERNA 12+ YRS 00:00:00 [place] [facility] SARS-COV-2 COVID-19 2020-08-09 Completed [facility] MODERNA 12+ YRS 00:00:00 [place] [facility] SARS-COV-2 COVID-19 2020-08-09 Completed [facility] MODERNA 12+ YRS 00:00:00 [place] [facility] SARS-COV-2 COVID-19 2020-08-09 Completed [facility] MODERNA 12+ YRS 00:00:00 [place] [facility] SARS-COV-2 COVID-19 2020-08-09 Completed [facility] MODERNA 12+ YRS 00:00:00 [place] [facility] SARS-COV-2 COVID-19 2020-08-09 Completed [facility] MODERNA 12+ YRS 00:00:00 [place] [facility] SARS-COV-2 COVID-19 2020-08-09 Completed [facility] MODERNA 12+ YRS 00:00:00 [place] [facility] SARS-COV-2 COVID-19 2020-08-09 Completed [facility] MODERNA 12+ YRS 00:00:00 [place] [facility] SARS-COV-2 COVID-19 2020-08-09 Completed [facility] MODERNA 12+ YRS 00:00:00 [place] [facility] SARS-COV-2 COVID-19 2020-08-09 Completed [facility] MODERNA 12+ YRS 00:00:00 [place] [facility] SARS-COV-2 COVID-19 2020-08-09 Completed [facility] MODERNA 12+ YRS 00:00:00 [place] [facility] SARS-COV-2 COVID-19 2020-08-09 Completed [facility] MODERNA 12+ YRS 00:00:00 [place] [facility] SARS-COV-2 COVID-19 2020-08-09 Completed [facility] MODERNA 12+ YRS 00:00:00 [place] [facility] SARS-COV-2 COVID-19 2020-08-09 Completed [facility] MODERNA 12+ YRS 00:00:00 [place] [facility] SARS-COV-2 COVID-19 2020-08-09 Completed [facility] MODERNA 12+ YRS 00:00:00 [place] [facility] SARS-COV-2 COVID-19 2020-08-09 Completed [facility] MODERNA 12+ YRS 00:00:00 [place] [facility] SARS-COV-2 COVID-19 2020-08-09 Completed [facility] MODERNA 12+ YRS 00:00:00 [place] [facility] SARS-COV-2 COVID-19 2020-08-09 Completed [facility] MODERNA 12+ YRS 00:00:00 [place] [facility] SARS-COV-2 COVID-19 2020-08-09 Completed [facility] MODERNA 12+ YRS 00:00:00 [place] [facility] SARS-COV-2 COVID-19 2020-08-09 Completed [facility] MODERNA 12+ YRS 00:00:00 [place] [facility] SARS-COV-2 COVID-19 2020-08-09 Completed [facility] MODERNA 12+ YRS 00:00:00 [place] [facility] SARS-COV-2 COVID-19 2020-08-09 Completed [facility] MODERNA 12+ YRS 00:00:00 [place] [facility]INE [facility] Pneumococcal 2020-06-15 Completed [facility] Polysaccharide, 00:00:00 [place] [facility] PPSV23 (PNEUMOVAX) [facility] Influenza Virus 2020-06-15 Completed [facility] Vaccine [facility] .5 mL 00:00:00 [facility] 6+ MO Branch Pneumococcal 2020-06-15 Completed [facility] Polysaccharide, 00:00:00 [place] [facility] PPSV23 (PNEUMOVAX) [facility] Influenza Virus 2020-06-15 Completed [facility] Vaccine Quad .5 mL 00:00:00 [facility] 6+ MO [facility] Pneumococcal 2020-06-15 Completed [facility] Polysaccharide, 00:00:00 [place] [facility] PPSV23 (PNEUMOVAX) [facility] Influenza Virus 2020-06-15 Completed [facility] Vaccine Quad .5 mL 00:00:00 [facility] 6+ MO [facility] Pneumococcal 2020-06-15 Completed [facility] Polysaccharide, 00:00:00 [place] [facility] PPSV23 (PNEUMOVAX) [facility] Influenza Virus 2020-06-15 Completed [facility] Vaccine Quad .5 mL 00:00:00 [facility] 6+ MO [facility] Pneumococcal 2020-06-15 Completed [facility] Polysaccharide, 00:00:00 [place] [facility] PPSV23 (PNEUMOVAX) Branch Influenza Virus 2020-06-15 Completed [facility] Vaccine Quad .5 mL 00:00:00 [facility] 6+ MO [facility] Pneumococcal 2020-06-15 Completed [facility] Polysaccharide, 00:00:00 [place] [facility] PPSV23 (PNEUMOVAX) [facility] Influenza Virus 2020-06-15 Completed [facility] Vaccine Quad .5 mL 00:00:00 [facility] 6+ MO [facility] Pneumococcal 2020-06-15 Completed [facility] Polysaccharide, 00:00:00 [place] [facility] PPSV23 (PNEUMOVAX) [facility] Influenza Virus 2020-06-15 Completed [facility] Vaccine Quad .5 mL 00:00:00 [facility] 6+ MO [facility] Pneumococcal 2020-06-15 Completed [facility] Polysaccharide, 00:00:00 [place] [facility] PPSV23 (PNEUMOVAX) Branch Influenza Virus 2020-06-15 Completed [facility] Vaccine Quad .5 mL 00:00:00 [facility] 6+ MO [facility] Pneumococcal 2020-06-15 Completed [facility] Polysaccharide, 00:00:00 [place] [facility] PPSV23 (PNEUMOVAX) Branch Influenza Virus 2020-06-15 Completed [facility] Vaccine Quad .5 mL 00:00:00 [facility] 6+ MO [facility] Pneumococcal 2020-06-15 Completed [facility] Polysaccharide, 00:00:00 [place] [facility] PPSV23 (PNEUMOVAX) Branch Influenza Virus 2020-06-15 Completed [facility] Vaccine Quad .5 mL 00:00:00 [facility] 6+ MO [facility] Pneumococcal 2020-06-15 Completed [facility] Polysaccharide, 00:00:00 [place] [facility] PPSV23 (PNEUMOVAX) [facility] Influenza Virus 2020-06-15 Completed [facility] Vaccine Quad .5 mL 00:00:00 [facility] 6+ MO [facility] Pneumococcal 2020-06-15 Completed [facility] Polysaccharide, 00:00:00 [place] [facility] PPSV23 (PNEUMOVAX) Branch Influenza Virus 2020-06-15 Completed [facility] Vaccine Quad .5 mL 00:00:00 [facility] 6+ MO [facility] Pneumococcal 2020-06-15 Completed [facility] Polysaccharide, 00:00:00 [place] [facility] PPSV23 (PNEUMOVAX) Branch Influenza Virus 2020-06-15 Completed [facility] Vaccine Quad .5 mL 00:00:00 [facility] 6+ MO [facility] Pneumococcal 2020-06-15 Completed [facility] Polysaccharide, 00:00:00 [place] [facility] PPSV23 (PNEUMOVAX) Branch Influenza Virus 2020-06-15 Completed [facility] Vaccine Quad .5 mL 00:00:00 [facility] 6+ MO [facility] Pneumococcal 2020-06-15 Completed [facility] Polysaccharide, 00:00:00 [place] [facility] PPSV23 (PNEUMOVAX) Branch Influenza Virus 2020-06-15 Completed [facility] Vaccine Quad .5 mL 00:00:00 [facility] 6+ MO [facility] Pneumococcal 2020-06-15 Completed [facility] Polysaccharide, 00:00:00 [place] [facility] PPSV23 (PNEUMOVAX) Branch Influenza Virus 2020-06-15 Completed [facility] Vaccine Quad .5 mL 00:00:00 [facility] 6+ MO [facility] Pneumococcal 2020-06-15 Completed [facility] Polysaccharide, 00:00:00 [place] [facility] PPSV23 (PNEUMOVAX) Branch Influenza Virus 2020-06-15 Completed [facility] Vaccine Quad .5 mL 00:00:00 [facility] 6+ MO [facility] Pneumococcal 2020-06-15 Completed [facility] Polysaccharide, 00:00:00 [place] [facility] PPSV23 (PNEUMOVAX) Branch Influenza Virus 2020-06-15 Completed [facility] Vaccine Quad .5 mL 00:00:00 [facility] 6+ MO [facility] Pneumococcal 2020-06-15 Completed [facility] Polysaccharide, 00:00:00 [place] [facility] PPSV23 (PNEUMOVAX) Branch Influenza Virus 2020-06-15 Completed [facility] Vaccine Quad .5 mL 00:00:00 [facility] 6+ MO [facility] Pneumococcal 2020-06-15 Completed [facility] Polysaccharide, 00:00:00 [place] [facility] PPSV23 (PNEUMOVAX) Branch Influenza Virus 2020-06-15 Completed [facility] Vaccine Quad .5 mL 00:00:00 [facility] 6+ MO [facility] Pneumococcal 2020-06-15 Completed [facility] f Polysaccharide, 00:00:00 [place] [facility] PPSV23 (PNEUMOVAX) Branch Influenza Virus 2020-06-15 Completed [facility] Vaccine Quad .5 mL 00:00:00 [facility] 6[facility] MO [facility] Pneumococcal 2020-06-15 Completed [facility] f Polysaccharide, 00:00:00 [place] [facility] PPSV23 (PNEUMOVAX) Branch Influenza Virus 2020-06-15 Completed [facility] .5 mL 00:00:00 [facility] IM 6+ MO [facility] Pneumococcal 2020-06-15 Completed [facility] o f Polysaccharide, 00:00:00 [place] [facility] PPSV23 (PNEUMOVAX) Branch Influenza Virus 2020-06-15 Completed [facility] Vaccine [facility] .5 mL 00:00:00 [facility] IM 6+ MO [facility] Pneumococcal 2020-06-15 Completed [facility] f Polysaccharide, 00:00:00 [place] [facility] PPSV23 (PNEUMOVAX) Branch Influenza Virus 2020-06-15 Completed [facility] Vaccine [facility] .5 mL 00:00:00 [facility] IM 6+ MO [facility] Pneumococcal 2020-06-15 Completed [facility] f Polysaccharide, 00:00:00 [place] [facility] PPSV23 (PNEUMOVAX) Branch Influenza Virus 2020-06-15 Completed [facility] Vaccine [facility] .5 mL 00:00:00 [facility] IM 6+ MO [facility] Pneumococcal 2020-06-15 Completed [facility] f Polysaccharide, 00:00:00 [place] [facility] PPSV23 (PNEUMOVAX) Branch Influenza Virus 2020-06-15 Completed [facility] .5 mL 00:00:00 [facility] IM 6+ MO [facility] Pneumococcal 2020-06-15 Completed [facility] f Polysaccharide, 00:00:00 [place] [facility] PPSV23 (PNEUMOVAX) [facility] Influenza Virus 2020-06-15 Completed [facility] Vaccine [facility] .5 mL 00:00:00 [facility] Pneumococcal 2020-06-15 Completed University o f Polysaccharide, 00:00:00 [facility] PPSV23 (PNEUMOVAX) Branch Influenza Virus 2020-06-15 Completed Universit y of Vaccine Quad .5 mL 00:00:00 [facility] Pneumococcal 2020-06-15 Completed University o f Polysaccharide, 00:00:00 [place] [facility] PPSV23 (PNEUMOVAX) Branch Influenza Virus 2020-06-15 Completed Universit y of Vaccine [facility] .5 mL 00:00:00 [facility] Pneumococcal 2020-06-15 Completed University o f Polysaccharide, 00:00:00 [place] [facility] PPSV23 (PNEUMOVAX) Branch Influenza Virus 2020-06-15 Completed Universit y of Vaccine [facility] .5 mL 00:00:00 [facility] Pneumococcal 2020-06-15 Completed University o f Polysaccharide, 00:00:00 [place] [facility] PPSV23 (PNEUMOVAX) Branch Influenza Virus 2020-06-15 Completed Universit y of Vaccine [facility] .5 mL 00:00:00 [facility] Pneumococcal 2020-06-15 Completed University o f Polysaccharide, 00:00:00 [place] [facility] PPSV23 (PNEUMOVAX) Branch Influenza Virus 2020-06-15 Completed Universit y of Vaccine [facility] .5 mL 00:00:00 [facility] Pneumococcal 2020-06-15 Completed University o f Polysaccharide, 00:00:00 [place] [facility] PPSV23 (PNEUMOVAX) Branch Influenza Virus 2020-06-15 Completed Universit y of Vaccine [facility] .5 mL 00:00:00 [facility] Pneumococcal 2020-06-15 Completed University o f Polysaccharide, 00:00:00 [place] [facility] PPSV23 (PNEUMOVAX) Branch Influenza Virus 2020-06-15 Completed Universit y of Vaccine [facility] .5 mL 00:00:00 [facility] Pneumococcal 2020-06-15 Completed University o f Polysaccharide, 00:00:00 [place] [facility] PPSV23 (PNEUMOVAX) Branch Influenza Virus 2020-06-15 Completed Universit y of Vaccine Quad .5 mL 00:00:00 [facility] Pneumococcal 2020-06-15 Completed University o f Polysaccharide, 00:00:00 [place] [facility] PPSV23 (PNEUMOVAX) Branch Influenza Virus 2020-06-15 Completed Universit y of Vaccine Quad .5 mL 00:00:00 [facility] Pneumococcal 2020-06-15 Completed University o f Polysaccharide, 00:00:00 [place] [facility] PPSV23 (PNEUMOVAX) Branch Influenza Virus 2020-06-15 Completed Universit y of Vaccine [facility] .5 mL 00:00:00 [facility] Pneumococcal 2020-06-15 Completed University o f Polysaccharide, 00:00:00 [place] [facility] PPSV23 (PNEUMOVAX) Branch Influenza Virus 2020-06-15 Completed Universit y of Vaccine Quad .5 mL 00:00:00 [facility] Pneumococcal 2020-06-15 Completed University o f Polysaccharide, 00:00:00 [place] [facility] PPSV23 (PNEUMOVAX) Branch Influenza Virus 2020-06-15 Completed Universit y of Vaccine Quad .5 mL 00:00:00 [facility] Pneumococcal 2020-06-15 Completed University o f Polysaccharide, 00:00:00 [place] [facility] PPSV23 (PNEUMOVAX) Branch Influenza Virus 2020-06-15 Completed Universit y of Vaccine Quad .5 mL 00:00:00 [facility] [place] [facility] Pneumococcal 2020-06-15 Completed University o f Polysaccharide, 00:00:00 [place] [facility] PPSV23 (PNEUMOVAX) Branch Influenza Virus 2020-06-15 Completed Universit y of Vaccine Quad .5 mL 00:00:00 [facility] [place] [facility] Pneumococcal 2020-06-15 Completed University o f Polysaccharide, 00:00:00 [place] [facility] PPSV23 (PNEUMOVAX) Branch Influenza Virus 2020-06-15 Completed Universit y of Vaccine Quad .5 mL 00:00:00 [facility] Pneumococcal 2020-06-15 Completed University o f Polysaccharide, 00:00:00 [place] [facility] PPSV23 (PNEUMOVAX) Branch Influenza Virus 2020-06-15 Completed Universit y of Vaccine Quad .5 mL 00:00:00 [facility] Pneumococcal 2020-06-15 Completed University o f Polysaccharide, 00:00:00 [place] [facility] PPSV23 (PNEUMOVAX) Branch Influenza Virus 2020-06-15 Completed Universit y of Vaccine Quad .5 mL 00:00:00 [facility] Pneumococcal 2020-06-15 Completed University o f Polysaccharide, 00:00:00 [place] [facility] PPSV23 (PNEUMOVAX) Branch Influenza Virus 2020-06-15 Completed Universit y of Vaccine [facility] .5 mL 00:00:00 [facility] Pneumococcal 2020-06-15 Completed University o f Polysaccharide, 00:00:00 [place] [facility] PPSV23 (PNEUMOVAX) Branch Influenza Virus 2020-06-15 Completed [facility]it y of Vaccine Quad .5 mL 00:00:00 [facility] Pneumococcal 2020-06-15 Completed University o f Polysaccharide, 00:00:00 [place] [facility] PPSV23 (PNEUMOVAX) Branch Influenza Virus 2020-06-15 Completed Universit y of Vaccine Quad .5 mL 00:00:00 [facility] Pneumococcal 2020-06-15 Completed University o f Polysaccharide, 00:00:00 [place] [facility] PPSV23 (PNEUMOVAX) Branch Influenza Virus 2020-06-15 Completed Universit y of Vaccine Quad .5 mL 00:00:00 [facility] Pneumococcal 2020-06-15 Completed University o f Polysaccharide, 00:00:00 [place] [facility] PPSV23 (PNEUMOVAX) Branch Influenza Virus 2020-06-15 Completed Universit y of Vaccine Quad .5 mL 00:00:00 [facility] Pneumococcal 2020-06-15 Completed University o f Polysaccharide, 00:00:00 [place] [facility] PPSV23 (PNEUMOVAX) Branch Influenza Virus 2020-06-15 Completed [facility]it y of Vaccine Quad .5 mL 00:00:00 [facility] Pneumococcal 2020-06-15 Completed University o f Polysaccharide, 00:00:00 [place] [facility] PPSV23 (PNEUMOVAX) Branch Influenza Virus 2020-06-15 Completed Universit y of Vaccine Quad .5 mL 00:00:00 [facility] Pneumococcal 2020-06-15 Completed University o f Polysaccharide, 00:00:00 [place] [facility] PPSV23 (PNEUMOVAX) Branch Influenza Virus 2020-06-15 Completed [facility]it y of Vaccine Quad .5 mL 00:00:00 [facility] Pneumococcal 2020-06-15 Completed University o f Polysaccharide, 00:00:00 [place] [facility] PPSV23 (PNEUMOVAX) Branch Influenza Virus 2020-06-15 Completed [facility]it [facility] of Vaccine Quad .5 mL 00:00:00 [facility] Pneumococcal 2020-06-15 Completed University o f Polysaccharide, 00:00:00 [place] [facility] PPSV23 (PNEUMOVAX) Branch Influenza Virus 2020-06-15 Completed [facility]it y of Vaccine Quad .5 mL 00:00:00 [facility] Pneumococcal 2020-06-15 Completed University o f Polysaccharide, 00:00:00 [place] [facility] PPSV23 (PNEUMOVAX) Branch Influenza Virus 2020-06-15 Completed Universit y of Vaccine Quad .5 mL 00:00:00 [facility] Pneumococcal 2020-06-15 Completed University o f Polysaccharide, 00:00:00 [place] [facility] PPSV23 (PNEUMOVAX) Branch Influenza Virus 2020-06-15 Completed [facility]it y of Vaccine Quad .5 mL 00:00:00 [facility] Pneumococcal 2020-06-15 Completed University o f Polysaccharide, 00:00:00 [place] [facility] PPSV23 (PNEUMOVAX) Branch Influenza Virus 2020-06-15 Completed [facility]it y of Vaccine Quad .5 mL 00:00:00 [facility] Pneumococcal 2020-06-15 Completed University o f Polysaccharide, 00:00:00 [place] [facility] PPSV23 (PNEUMOVAX) Branch Influenza Virus 2020-06-15 Completed [facility]it y of Vaccine Quad .5 mL 00:00:00 [facility] Pneumococcal 2020-06-15 Completed University o f Polysaccharide, 00:00:00 [place] [facility] PPSV23 (PNEUMOVAX) Branch Influenza Virus 2020-06-15 Completed [facility]it y of Vaccine Quad .5 mL 00:00:00 [facility] Pneumococcal 2020-06-15 Completed University o f Polysaccharide, 00:00:00 [place] [facility] PPSV23 (PNEUMOVAX) Branch Influenza Virus 2020-06-15 Completed [facility]it y of Vaccine Quad .5 mL 00:00:00 [facility] Pneumococcal 2020-06-15 Completed University o f Polysaccharide, 00:00:00 [place] [facility] PPSV23 (PNEUMOVAX) Branch Influenza Virus 2020-06-15 Completed [facility]it y of Vaccine Quad .5 mL 00:00:00 [facility] Pneumococcal 2020-06-15 Completed University o f Polysaccharide, 00:00:00 [place] [facility] PPSV23 (PNEUMOVAX) Branch Influenza Virus 2020-06-15 Completed [facility]it y of Vaccine Quad .5 mL 00:00:00 [facility] Pneumococcal 2020-06-15 Completed University o f Polysaccharide, 00:00:00 [place] [facility] PPSV23 (PNEUMOVAX) Branch Influenza Virus 2020-06-15 Completed [facility]it y of Vaccine Quad .5 mL 00:00:00 [facility] Pneumococcal 2020-06-15 Completed University o f Polysaccharide, 00:00:00 [place] [facility] PPSV23 (PNEUMOVAX) Branch Influenza Virus 2020-06-15 Completed [facility]it y of Vaccine Quad .5 mL 00:00:00 [facility] Pneumococcal 2020-06-15 Completed University o f Polysaccharide, 00:00:00 [place] [facility] PPSV23 (PNEUMOVAX) Branch Influenza Virus 2020-06-15 Completed [facility]it y of Vaccine Quad .5 mL 00:00:00 [facility] Pneumococcal 2020-06-15 Completed University o f Polysaccharide, 00:00:00 [place] [facility] PPSV23 (PNEUMOVAX) Branch Influenza Virus 2020-06-15 Completed [facility]it y of Vaccine Quad .5 mL 00:00:00 [facility] Pneumococcal 2020-06-15 Completed University o f Polysaccharide, 00:00:00 [place] [facility] PPSV23 (PNEUMOVAX) Branch Influenza Virus 2020-06-15 Completed [facility]it y of Vaccine Quad .5 mL 00:00:00 [facility] Pneumococcal 2020-06-15 Completed University o f Polysaccharide, 00:00:00 [place] [facility] PPSV23 (PNEUMOVAX) Branch Influenza Virus 2020-06-15 Completed [facility]it y of Vaccine Quad .5 mL 00:00:00 [facility] Pneumococcal 2020-06-15 Completed University o f Polysaccharide, 00:00:00 [place] [facility] PPSV23 (PNEUMOVAX) Branch Influenza Virus 2020-06-15 Completed [facility]it y of Vaccine Quad .5 mL 00:00:00 [facility] Pneumococcal 2020-06-15 Completed University o f Polysaccharide, 00:00:00 [place] [facility] PPSV23 (PNEUMOVAX) Branch Influenza Virus 2020-06-15 Completed Universit y of Vaccine Quad .5 mL 00:00:00 [facility] 6+ MO Branch Vital Signs Vital Name Observation Time Observation Value Comments Source Systolic blood 2022-07-19 22:01:00 145 mm[Hg] Univer sity of pressure [facility] [place] [facility] Diastolic blood 2022-07-19 22:01:00 73 mm[Hg] Unive rsity of pressure [place] [facility] [place] Heart rate 2022-07-19 22:01:00 91 /min [facility]i ty [facility] Respiratory rate 2022-07-19 22:01:00 15 /min Univ ersity of [facility] Oxygen saturation in 2022-07-19 22:01:00 92 /min University of Arterial blood by [facility] Pulse oximetry Branch Body temperature 2022-07-19 19:11:00 36.72 Jeanne Univ ersity of [facility] Body weight 2022-07-19 19:11:00 111.585 kg [facility]i ty [facility] BMI 2022-07-19 19:11:00 40.94 kg/m2 [facility] Systolic blood 2022-07-16 16:47:00 139 mm[Hg] Univer sity of pressure [facility] Diastolic blood 2022-07-16 16:47:00 78 mm[Hg] Unive rsity of pressure [facility] Heart rate 2022-07-16 16:45:00 83 /min [facility]i ty [facility] Respiratory rate 2022-07-16 16:45:00 22 /min Univ ersity of [facility] Body height 2022-07-16 16:45:00 165.1 cm [facility] Body weight 2022-07-16 16:45:00 111.585 kg [facility] BMI 2022-07-16 16:45:00 40.94 kg/m2 [facility] Oxygen saturation in 2022-07-16 16:45:00 93 /min University of Arterial blood by [employer] ashley Pulse oximetry Branch Systolic blood 2022-06-10 20:16:00 138 mm[Hg] Univer sity of pressure [facility] Diastolic blood 2022-06-10 20:16:00 72 mm[Hg] Unive rsity of pressure [facility] Heart rate 2022-06-10 20:16:00 84 /min [facility] Body weight 2022-06-10 20:16:00 111.993 kg [facility] [place] [facility] BMI 2022-06-10 20:16:00 41.09 kg/m2 [facility]i ty [facility] [place] [facility] Oxygen saturation in 2022-06-10 20:16:00 95 /min University of Arterial blood by [place] YOLLEGE ashley Pulse oximetry Branch Systolic blood 2022-06-04 16:31:00 138 mm[Hg] Univer sity of pressure [facility] Diastolic blood 2022-06-04 16:31:00 80 mm[Hg] Unive rsity of pressure [facility] Heart rate 2022-06-04 16:00:00 95 /min [facility]i ty [facility] Body temperature 2022-06-04 16:00:00 36.94 Jeanne Univ ersity of [facility] Body height 2022-06-04 16:00:00 165.1 cm [facility] ty [facility] Body weight 2022-06-04 16:00:00 111.131 kg [facility] [place] [facility] BMI 2022-06-04 16:00:00 40.77 kg/m2 [facility] ty [facility] [place] [facility] Oxygen saturation in 2022-06-04 16:00:00 95 /min University of Arterial blood by [facility] ashley Pulse oximetry Branch Systolic blood 2022-05-29 18:11:00 161 mm[Hg] Univer sity of pressure [facility] Diastolic blood 2022-05-29 18:11:00 78 mm[Hg] Unive rsity of pressure [facility] Heart rate 2022-05-29 18:11:00 89 /min Universi ty of [facility] [place] [facility] Respiratory rate 2022-05-29 18:11:00 20 /min Univ ersity of [facility] [place] [facility] Oxygen saturation in 2022-05-29 18:11:00 98 /min University of Arterial blood by [place] Medi ashley Pulse oximetry Branch Body temperature 2022-05-29 15:16:00 37.06 Jeanne Univ ersity of [facility] [place] [facility] Body height 2022-05-29 15:16:00 165.1 cm [facility] [place] [facility] Body weight 2022-05-29 15:16:00 113.399 kg [facility] [place] [facility] BMI 2022-05-29 15:16:00 41.60 kg/m2 [facility] [place] [facility] Systolic blood 2022-05-23 21:06:00 156 mm[Hg] Univer sity of pressure [facility] Diastolic blood 2022-05-23 21:06:00 78 mm[Hg] Unive rsity of pressure [facility] Heart rate 2022-05-23 21:06:00 87 /min [facility] ty [facility] [place] [facility] [place] Body weight 2022-05-23 21:06:00 113.036 kg [facility] [place] [facility] BMI 2022-05-23 21:06:00 41.47 kg/m2 Universi ty of [facility] Oxygen saturation in 2022-05-23 21:06:00 97 /min University of Arterial blood by [facility] Pulse oximetry Branch Systolic blood 2022-05-08 17:02:00 127 mm[Hg] Univer sity of pressure [facility] Diastolic blood 2022-05-08 17:02:00 77 mm[Hg] Unive rsity of [facility] Heart rate 2022-05-08 16:56:00 87 /min [facility]i ty [facility] Body weight 2022-05-08 16:56:00 111.131 kg [facility] [place] [facility] BMI 2022-05-08 16:56:00 40.77 kg/m2 [facility] Oxygen saturation in 2022-05-08 16:56:00 96 /min University of Arterial blood by [facility] Pulse oximetry Branch Procedures Procedure Date / Time Performed Performing Clinician Sour e COMP. METABOLIC PANEL 2022-07-19 19:57:00 Jesus Spain [facility] ([id number]) [facility] CBC WITH DIFF 2022-07-19 19:57:00 Jesus Spain [place] o f [facility] LACTIC ACID WHOLE 2022-07-19 19:56:00 Jesus Spain [facility] Branch XR HEEL 2+ VW LEFT 2022-07-19 19:48:20 Jesus Spain [facility] CONSENT/REFUSAL FOR 2022-07-19 19:00:48 Doctor Unassigned, No Un [facility] DIAGNOSIS AND Name Medical Branch TREATMENT SLEEP STUDY DATA 2022-06-19 06:01:00 Doctor [facility]assigned, [facility] LIPASE 2022-05-29 16:08:00 Daylin Mojica [facility] TROPONIN I 2022-05-29 16:08:00 Daylin Mojica [facility] COMP. METABOLIC PANEL 2022-05-29 16:08:00 Daylin Mojica Unive [facility] ([id number]) [facility] CBC WITH DIFF 2022-05-29 16:08:00 Daylin Mojica [facility] URINALYSIS 2022-05-29 16:02:00 Daylin Mojica [facility] CONSENT/REFUSAL FOR 2022-05-29 15:11:18 Doctor Unassálvaro, No [facility] TREATMENT POCT HEMOGLOBIN A1C 2022-05-23 21:18:00 Giovany Antoine [facility] PHYSICIAN ORDERS 2022-05-08 05:01:00 [facility]assigned, [facility] Start End Encounter Admission Attending Care Care Encounter Source Date/Time Date/Time Type Type Clinicians Facility Department ID 2021-06-01 Emergency [facility] [id number] Univers 23:56:14 [facility] 2021-06-01 Outpatient JANAE [facility] [id number] Univers 12:13:32 BISI [facility] 2022-08-07 2022-08-07 Outpatient Hany WITT [facility] [id number] Univers 12:00:00 12:00:00 JEFFERSON [facility] 2022-07-22 2022-07-22 [facility] [id number] Univers 00:00:00 00:00:00 [facility] [id number] it y of [place] [id number] Sarkis as MAURICIO?BLEA [phone] [address] MEDICAL OFFICE BUILDING 2022-07-21 2022-07-21 [facility]phone [facility] [id number] Univers 00:00:00 00:00:00 Claudia BRADLEY [id number] i ty of [facility] [id number] [id number] Ar dical NAL 059 [facility] 2022-07-19 2022-07-19 Emergency X [facility] ERT [id number] Univers 13:12:00 16:24:00 JESUS ity of [facility] 2022-07-19 2022-07-19 Emergency [facility] [id number] Univers 13:12:00 16:24:00 [facility] [id number] i ty of [facility] [id number] [id number] [address] 2022-07-17 2022-07-17 Telephone Eduar [facility] [id number] Univers 00:00:00 00:00:00 [facility] [id number] it y of [place] 4.2.7.2.686 Sarkis as MAURICIO?BLEA [id number] [address] OFFICE [facility] 2022-07-16 2022-07-16 Office Galdino [facility] [id number] Univers 10:30:00 11:00:00 Visit Rachell BRADLEY [id number] ity of [facility] [id number] [phone] [facility] 085 [facility] 2022-07-16 2022-07-16 Outpatient R RACHELL CHENG [facility] [id number] Univers 10:30:00 10:30:00 [facility] [place] 2022-07-15 2022-07-15 Telephone Eduar [facility] [id number] Univers 00:00:00 00:00:00 [facility] [id number] it y of [facility] [id number] [place]is as MAURICIO?BLEA [id number] [address] OFFICE [facility] 2022-07-14 2022-07-14 [place]phone [place] [facility] [id number] Univers 00:00:00 00:00:00 Claudia L [place] [id number] i ty of [facility] [id number] [id number] [address] 2022-07-07 2022-07-07 [facility]phone [facility] [id number] Univers 00:00:00 00:00:00 Claudia L [place] [id number] i ty of [facility] [id number] [id number] [address] 2022-07-03 2022-07-03 Outpatient [facility] [id number] Univers 11:30:00 11:30:00 ROSETTE copeland [facility] 2022-07-02 2022-07-02 Refprabhjot [facility] [id number] Univers 00:00:00 00:00:00 [facility] [id number] it y of [place] 4.2.7.2.686 Sarkis as MAURICIO?BLEA [id number] [address] OFFICE [facility] 2022-06-30 2022-06-30 Refprabhjot [facility] 1.2.840.114 [id number] Univers 00:00:00 00:00:00 [facility] [id number] it y of [place] 4.2.7.2.686 Sarkis as MAURICIO?BLEA [id number] [address] OFFICE [facility] 2022-06-30 2022-06-30 [facility] [id number] Univers 00:00:00 00:00:00 Claudia L [place] [id number] i ty of [facility] [id number] [id number] [address] 2022-06-25 2022-06-25 Telephone [facility] [id number] Univers 00:00:00 00:00:00 Rosette A HEALTH [id number] i ty of [place] 4.2.7.2.686 Sarkis as MAURICIO?BLEA [phone] [address] MEDICAL OFFICE [facility] 2022-06-19 2022-06-19 Home Visit Field Care Manager Brenda Taveras [facility] 1.2 .840.114 [id number] Univers 13:00:00 13:15:00 Visit Rachell Cheng T [place] 350.1.13. 10 [place]y of [id number] [place] [id number] [facility] [address] [place] 2022-06-19 2022-06-19 Outpatient R TC CHENGL [facility] [id number] Univers 13:00:00 13:00:00 MARQUIS [facility]ENGHIL [facility] [place] 2022-06-19 2022-06-19 Orders Doctor BISI 1.2.840.114 [id number] Univers 00:00:00 00:00:00 Only Unassigned, BRYAN 350.1.13.[address] [facility] [id number] [place]is as [id number] [facility] 009 [place] 2022-06-19 2022-06-19 Refill Eduar [facility] 1.2.840.114 [id number] Univers 00:00:00 00:00:00 [facility] 350.1.13.10 it y of [place] 4.2.7.2.686 Sarkis as MAURICIO?BLEA [id number] [address] OFFICE [facility] 2022-06-18 2022-06-18 Outpatient R GALDINO STRAHIL [facility] [id number] Univers 13:00:00 13:00:00 MARQUIS CHENGHIL ity [facility] 2022-06-17 2022-06-17 Telephone Eduar [facility] [id number] Univers 00:00:00 00:00:00 [facility] 350.1.13.10 it y of [place] 4.2.7.2.686 Sarkis as MAURICIO?BLEA [id number] [address] OFFICE [facility] 2022-06-16 2022-06-16 Outpatient SFA [facility] [id number] [place] 11:44:53 11:44:53 1114 Jonathan Gutierrez 2022-06-16 2022-06-16 [place]phone [place] [facility] [id number] Univers 00:00:00 00:00:00 Claudia Lesli [place] 350.1.13.10 i ty of [id number] [id number] Ar ashley WYNN 059 [facility] 2022-06-13 2022-06-13 Home Visit Field Care Manager 2, Adc Lab [facility] 1..840.114 [id number] Univers 11:15:00 11:30:00 Visit Claudia Porter [id number] ity of [facility] [id number] [id number] Ar ashley W[place]NN 353 [facility] 2022-06-13 2022-06-13 Outpatient R CHAR[place] [facility] [id number] Univers 11:15:00 11:15:00 LCAUDIA copeland [facility] 2022-06-12 2022-06-12 [facility] [id number]..[id number] Univers 00:00:00 00:00:00 Claudia Lesli [place] 350.1.13.10 i ty of [facility] [id number] [id number] Ar ashley WYNN 9 [facility] 2022-06-12 2022-06-12 Telephone [facility] [id number] Univers 00:00:00 00:00:00 [facility] [id number] it y of [place] [id number] Sarkis as MAURICIO?BLEA [id number] Ar ashley SIMPSON 0[address] [facility] 2022-06-11 2022-06-11 Outpatient R EDUAR [facility] [id number] Univers 10:08:55 23:59:00 JEFFERSON iraida [facility] 2022-06-11 2022-06-11 [facility] 1.2.840.114 [id number] Univers 10:08:55 23:59:00 Encounter [place] BRADLEY [id number] ity of [place]2.7.2.686 [place] [id number] [facility] [address] 2022-06-10 2022-06-10 [facility] [id number] Univers 14:20:00 16:26:04 CLAUDIA ity [facility] 2022-06-10 2022-06-10 Office [facility] 1.2.840.114 [id number] Univers 14:20:00 16:26:04 Visit Claudia BRADLEY 350.1.13.10 i ty [place]2.7.2.686 [place] [facility] [id number] Ar dical NAL [facility]59 [facility] [facility] 2022-06-05 2022-06-05 [facility]ya [facility] 1.2.840.114 [id number] Univers 00:00:00 00:00:00 Marylou HEALTH 350.1.13.10 it y of [facility] 4.2.7.2.686 Sarkis as MAURICIO?BLEA [id number] [facility] 220 [facility] OFFICE [facility] 2022-06-04 2022-06-04 Out[facility] [id number] Univers 10:30:00 11:55:43 ROSETTE itiraida [facility] 2022-06-04 2022-06-04 Office [facility] 1.2.840.114 [id number] Univers 10:30:00 11:55:43 Visit Rosette A [employer] 350.1.13.10 i ty of [facility] 4.2.7.2.686 Sarkis as MAURICIO?BLEA [phone] Ar dical KNEY 044 [facility] OFFICE [facility] 2022-06-04 2022-06-04 Viktoriya WittCAR[facility]BAD [facility] 1.2.840.114 [id number] Univers 00:00:00 00:00:00 [place] HEALTH 350.1.13.10 it y of [place] 4.2.7.2.686 Sarkis as MAURICIO?BLEA [phone] Ar [address] OFFICE [facility] 2022-05-29 2022-05-29 Emergency X [facility] ERT [id number] Univers 10:17:00 14:59:00 DAYLIN ity of [facility] 2022-05-29 2022-05-29 Emergency [facility] 1.2.979.953 [id number] Univers 10:17:00 14:59:00 Daylin G MIRNA 350.1.13.10 ity of [place] 4.2.7.2.686 [place] [facility] [id number] [address] 2022-05-29 2022-05-29 Telephone [facility] 1.2.815.022 [id number] Univers 00:00:00 00:00:00 [place] HEALTH 350.1.13.10 it y of [place] 4.2.7.2.686 Sarkis as MAURICIO?BLEA [phone] [address] OFFICE [facility] 2022-05-29 2022-05-29 Refill [facility] 1.2.840.114 [id number] Univers 00:00:00 00:00:00 [place] HEALTH 350.1.13.10 it y of [place] 4.2.7.2.686 Sarkis as MAURICIO?BLEA [phone] [address] OFFICE [facility] 2022-05-27 2022-05-27 Telephone [facility] 1.2.061.206 [id number] Univers 00:00:00 00:00:00 [place] HEALTH 350.1.13.10 it y of [place] 4.2.7.2.686 Sarkis as MAURICIO?BLEA [id number] [address] OFFICE [facility] 2022-05-27 2022-05-27 Telephone Team [facility] BISI 1.2.840.114 [id number] Univers 00:00:00 00:00:00 Health BRYNA 350.1.13.10 it y of [facility] 4.2.7.2.686 [place] [id number] [address] 2022-05-23 2022-05-23 Outpatient R ELINA [facility] [id number] Univers 16:30:00 17:15:04 GIOVANY [facility] 2022-05-23 2022-05-23 Office [facility] 1.2.060.798 [id number] Univers 16:30:00 17:15:04 Visit Giovany [facility] 350.1.13.10 it y of [place] 4.2.7.2.686 Sarkis as MAURICIO?BLEA [phone] [facility] [place] [address] MED[address] OFFICE [facility] 2022-05-23 2022-05-23 Outpatient R ELINA [facility] [id number] Univers 16:30:00 16:30:00 GIOVANY [facility] 2022-05-23 2022-05-23 Refprabhjot GaminoCAR[facility] 1.2.840.114 [id number] Univers 00:00:00 00:00:00 Marylou HEALTH 350.1.13.10 it y of [place] 4.2.7.2.686 Sarkis as MAURICIO?BLEA [phone] [facility] [address] MEDICAL OFFICE [facility] 2022-05-23 2022-05-23 Refprabhjot WittCARLSBAD [facility] 1.2.840.114 [id number] Univers 00:00:00 00:00:00 [place] HEALTH 350.1.13.10 it y of [place] 4.2.7.2.686 Sarkis as MAURICIO?BLEA [phone] [facility] 044 [facility] OFFICE [facility] 2022-05-20 2022-05-20 Refprabhjot WittCARLSBAD MEDICAL [facility] 1.2.840.114 [id number] Univers 00:00:00 00:00:00 [place] [facility]ALTH 350.1.13.10 it y of [place] 4.2.7.2.686 Sarkis as MAURICIO?BLEA [phone] [facility] 044 [facility] OFFICE [facility] 2022-05-08 2022-05-08 Outpatient [facility] [id number] Univers 12:00:00 12:18:22 [facility] 2022-05-08 2022-05-08 Office [facility] 1.2.840.114 [id number] Univers 12:00:00 12:18:22 Visit [facility] 350.1.13.10 it y of [place] 4.2.7.2.686 Sarkis as MAURICIO?BLEA [phone] [address] OFFICE [facility] 2022-05-08 2022-05-08 Outpatient R EDUAR [facility] [id number] Univers 12:00:00 12:00:00 JEFFERSON ity [facility] 2022-05-08 2022-05-08 Telephone Eduar [facility] 1.2.004.234 [id number] Univers 00:00:00 00:00:00 Erwin HEALTH 350.1.13.10 it y of [place] 4.2.7.2.686 Sarkis as MAURICIO?BLEA [phone] [address] OFFICE [facility] 2022-05-08 2022-05-08 Orders Doctor BISI 1.2.840.114 [id number] Univers 00:00:00 00:00:00 Only Unassigned, BRYAN 350.1.13.10 ity of [place] [facility] 4.2.7.2.686 Sarkis as [id number] [address] 2022-05-07 2022-05-07 Refprabhjot WittCARLSBAD MED[facility] 1.2.840.114 [id number] Univers 00:00:00 00:00:00 Erwin HEALTH 350.1.13.10 it y of [place] 4.2.7.2.686 Sarkis as MAURICIO?BLEA [id number] [address] OFFICE [facility] 2022-05-06 2022-05-06 Refprabhjot WittCARLSBAD [facility] 1.2.840.114 [id number] Univers 00:00:00 00:00:00 [facility] 350.1.13.10 it y of [place] 4.2.7.2.686 Sarkis as MAURICIO?BLEA [phone] [address] OFFICE [facility] 2022-04-29 2022-04-29 Viktoriya Gamino [facility] 1.2.840.114 [id number] Univers 00:00:00 00:00:00 Marylou HEALTH 350.1.13.10 it y of [place] 4.2.7.2.686 Sarkis as MAURICIO?BLEA [phone] Ar dical CALVIN [address] MEDICAL OFFICE [facility] 2022-04-24 2022-04-24 Outpatient R EDUAR [facility] [id number] Univers 00:00:00 00:00:00 JEFFERSON copeland [facility] 2022-04-24 2022-04-24 [facility] WittCAR[facility] 1.2.840.114 [id number] Univers 00:00:00 00:00:00 [facility]ALTH 350.1.13.10 it y of [place] 4.2.7.2.686 Sarkis as MAURICIO?BLEA [phone] Ar dicguilherme SIMPSON 044 [facility] OFFICE [facility] 2022-04-23 2022-04-23 [facility] Hospitalprabhjot WittCARLS[facility] 1.2.840.114 [id number] Univers 00:00:00 00:00:00 [facility]ALTH 350.1.13.10 it y of [place] 4.2.7.2.686 Sarkis as MAURICIO?BLEA [phone] Ar dicguilherme SIMPSON 044 [facility] OFFICE [facility] 2022-04-23 2022-04-23 [facility]ar[facility] 1.2.840.114 [id number] Univers 00:00:00 00:00:00 [facility]ALTH 350.1.13.10 it y of [place] 4.2.7.2.686 Sarkis as MAURICIO?BLEA [phone] Ar dicguilherme SIMPSON 044 [facility] OFFICE [facility] 2022-04-09 2022-04-09 [facility]ar[facility] 1.2.840.114 [id number] 41 Univers 00:00:00 00:00:00 [place] [facility]ALTH 350.1.13.10 it y of [place] 4.2.7.2.686 Sarkis as MAURICIO?BLEA [phone] Ar dicguilherme SIMPSON [address] MEDICAL OFFICE [facility] 2022-04-08 2022-04-08 Juan WittCARLSBAD MED[facility] 1.2.858.467 [id number] Univers 00:00:00 00:00:00 [facility]ALTH 350.1.13.10 it y of [place] 4.2.7.2.686 Sarkis as MAURICIO?BLEA [phone] Ar dic[address] OFFICE [facility] 2022-03-31 2022-03-31 Viktoriya WittCARLSBAD MED[facility] 1.2.840.114 [id number] Univers 00:00:00 00:00:00 Erwin HEALTH 350.1.13.10 it y of [place] 4.2.7.2.686 Sarkis as MAURICIO?BLEA [phone] [address] 2022-03-27 2022-03-27 Outpatient [facility] [id number] Univers 13:20:00 13:20:00 JEFFERSON ity [facility] 2022-03-26 2022-03-26 [facility] Hospitalprabhjot WittCAR[facility] 1.2.840.114 [id number] Univers 00:00:00 00:00:00 [facility] 350.1.13.10 it y of [place] 4.2.7.2.686 Sarkis as MAURICIO?BLEA [phone] [address] 2022-03-11 2022-03-11 Viktoriya WittCARLSBAD [facility] 1.2.840.114 [id number] Univers 00:00:00 00:00:00 [facility] 350.1.13.10 it y of [place] 4.2.7.2.686 Sarkis as MAURICIO?BLEA [id number] [address] 2022-03-06 2022-03-06 Juan WittCARLSBAD [facility] 1.2.616.441 [id number] Univers 00:00:00 00:00:00 Erwin HEALTH 350.1.13.10 it y of [place] 4.2.7.2.686 Sarkis as MAURICIO?BLEA [id number] [address] 2022-03-01 2022-03-01 Viktoriya WittCARLSBAD MED[facility] 1.2.840.114 [id number] Univers 00:00:00 00:00:00 Erwin HEALTH 350.1.13.10 it y of [place] 4.2.7.2.686 Sarkis as MAURICIO?BLEA [id number] [address] 2022-02-27 2022-02-27 Viktoriya GaminoCARLSBAD MEDICAL [facility] 1.2.840.114 [id number] 58 Univers 00:00:00 00:00:00 Marylou HEALTH 350.1.13.10 it y of [place] 4.2.7.2.686 Sarkis as MAURICIO?BLEA [id number] [facility] [address] MEDICAL OFFICE [facility] 2022-02-26 2022-02-26 Telephone Elina [facility] 1.2.840.114 [id number] Univers 00:00:00 00:00:00 [facility] HEALTH 350.1.13.10 it y of [place] 4.2.7.2.686 Sarkis as MAURICIO?BLEA [phone] [facility] 220 [facility] OFFICE [facility] 2022-02-24 2022-02-24 Telephone [facility] 1.2.258.588 [id number] Univers 00:00:00 00:00:00 [facility] 350.1.13.10 it y of [place] 4.2.7.2.686 Sarkis as MAURICIO?BLEA [phone] [address] OFFICE [facility] 2022-02-24 2022-02-24 [facility] 1.2.840.114 [id number] Univers 00:00:00 00:00:00 [facility] 350.1.13.10 it y of [place] 4.2.7.2.686 Sarkis as MAURICIO?BLEA [phone] [address] OFFICE [facility] 2022-02-21 2022-02-21 Outpatient R GARY [facility] [id number] Univers 10:45:00 10:45:00 ARMINDA ity of [facility] 2022-02-11 2022-02-11 Telephone [facility] 1.2.518.827 [id number] Univers 00:00:00 00:00:00 [facility] 350.1.13.10 it y of [place] 4.2.7.2.686 Sarkis as MAURICIO?BLEA [phone] [address] OFFICE [facility] 2022-02-10 2022-02-10 Telephone [facility] 1.2.262.399 [id number] Univers 00:00:00 00:00:00 [facility] 350.1.13.10 it y of [place] 4.2.7.2.686 Sarkis as MAURICIO?BLEA [phone] Ar ashley SIMPSON [address] MEDICAL OFFICE [facility] 2022-02-05 2022-02-05 Outpatient [facility] [id number] Univers 09:45:00 10:02:08 JEFFERSON ity [facility] 2022-02-05 2022-02-05 Office [facility] 1.2.840.114 [id number] Univers 09:45:00 10:02:08 Visit [facility] 350.1.13.10 it y of [place] 4.2.7.2.686 Sarkis as MAURICIO?BLEA [phone] [facility] 044 [facility] OFFICE [facility] 2022-02-05 2022-02-05 [facility] 1.2.840.114 [id number] Univers 00:00:00 00:00:00 [facility]ALTH 350.1.13.10 it y of [place] 4.2.7.2.686 Sarkis as MAURICIO?BLEA [phone] Ar shirame CORRINE 044 [facility] OFFICE [facility] 2022-02-05 2022-02-05 Refill WittCAR[facility] 1.2.840.114 [id number] Univers 00:00:00 00:00:00 [facility]ALTH 350.1.13.10 it y of [place] 4.2.7.2.686 Sarkis as MAURICIO?BLEA [phone] [facility] CORRINE [address] MEDICAL OFFICE [facility] 2022-02-05 2022-02-05 [facility] 1.2.743.889 [id number] Univers 00:00:00 00:00:00 Noemi S HEALTH 350.1.13.10 it y of [place] 4.2.7.2.686 Sarkis as MAURICIO?BLEA [phone] [facility] CORRINE [address] MEDICAL OFFICE [facility] 2022-02-05 2022-02-05 Orders Doctor MATHEWS 1.2.840.114 [id number] Univers 00:00:00 00:00:00 Only Unassigned, BRYAN 350.1.13.10 ity of [facility] 4.2.7.2.686 Sarkis as [phone] [address] 2022-01-31 2022-01-31 [facility]prabhjot AntoineCARLS[facility] 1.2.734.272 [id number] 0108 Univers 00:00:00 00:00:00 Giovany HEALTH 350.1.13.10 it y of [place] 4.2.7.2.686 Sarkis as MAURICIO?BLEA [id number] [facility] [address] MEDICAL OFFICE [facility] 2022-01-27 2022-01-27 [facility] CristhianCARLSBAD [facility] 1.2.840.114 [id number] Univers 00:00:00 00:00:00 Andrea HEALTH 350.1.13.10 it y of [place] 4.2.7.2.686 Sarkis as MAURICIO?BLEA [phone] [facility] 044 [facility] OFFICE [facility] 2022-01-26 2022-01-26 Refprabhjot AntoineCARLSBAD MEDICAL [facility]ENTER 1.2.186.324 [id number] Univers 00:00:00 00:00:00 Giovany H HEALTH 350.1.13.10 [facility] 4.2.7.2.686 Sarkis as MAURICIO?BLEA [phone] [facility] 220 [facility] OFFICE [facility] 2022-01-24 2022-01-24 [facility] [id number] Univers 15:30:00 15:30:00 GIOVANY [facility] 2022-01-24 2022-01-24 [facility] [id number] Univers 15:30:00 15:30:00 GIOVANY [facility] 2022-01-13 2022-01-13 Juan WittCAR[facility] 1.2.488.452 [id number] Univers 00:00:00 00:00:00 [place] [facility]ALTH 350.1.13.10 it y of [place] 4.2.7.2.686 Sarkis as MAURICIO?BLEA [phone] [facility] [address] MEDICAL OFFICE [facility] 2022-01-10 2022-01-10 Outpatient [facility] [id number] Univers 15:30:00 15:30:00 GIOVANY iraida [facility] 2022-01-09 2022-01-09 Outpatient H[facility] [id number] Univers 10:30:00 10:37:24 [facility] 2022-01-09 2022-01-09 Office [facility] 1.2.840.114 [id number] Univers 10:30:00 10:37:24 Visit [facility] 350.1.13.10 it y of [place] 4.2.7.2.686 Sarkis as MAURICIO?BLEA [phone] Ar shiraguilherme SIMPSON 198 [facility] OFFICE [facility] 2022-01-09 2022-01-09 Outpatient Hany [facility] [id number] Univers 10:30:00 10:37:24 [facility] 2022-01-02 2022-01-02 Office [facility] 1.2.840.114 [id number] Univers 10:30:00 10:45:00 Visit [facility] 350.1.13.10 it y of [place] 4.2.7.2.686 Sarkis as MAURICIO?BLEA [phone] Ar shiraguilherme SIMPSON 198 [facility] 2022-01-02 2022-01-02 Outpatient H[facility] [id number] Univers 10:30:00 10:30:00 [facility] 2022-01-02 2022-01-02 Outpatient H[facility] [id number] Univers 10:30:00 10:30:00 [facility] 2021-12-31 2021-12-31 [facility] WittCAR[facility] 1.2.840.114 [id number] Univers 00:00:00 00:00:00 [facility] 350.1.13.10 it y of [place] 4.2.7.2.686 Sarkis as MAURICIO?BLEA [phone] Ar shiraguilherme SIMPSON 044 [facility] OFFICE [facility] 2021-12-31 2021-12-31 Viktoriya WittCARLSBAD MED[facility] 1.2.840.114 [id number] Univers 00:00:00 00:00:00 [place] [facility]ALTH 350.1.13.10 it y of [place] 4.2.7.2.686 Sarkis as MAURICIO?BLEA [phone] Ar dicguilherme SIMPSON [address] MEDICAL OFFICE [facility] 2021-12-26 2021-12-26 Outpatient R MARIANN [facility] [id number] Univers 14:00:00 14:37:45 NOEMI iraida [facility] 2021-12-26 2021-12-26 Office [facility] 1.2.840.114 [id number] Univers 14:00:00 14:37:45 Visit [facility] 350.1.13.10 it y of [place] 4.2.7.2.686 Sarkis as MAURICIO?BLEA [phone] Ar ashley SIMPSON 198 [facility] OFFICE [facility] 2021-12-26 2021-12-26 Telephone [facility] 1.2.840.114 [id number] Univers 00:00:00 00:00:00 Giovany H HEALTH 350.1.13.10 it y of [place] 4.2.7.2.686 Sarkis as MAURICIO?BLEA [phone] Ar ashley SIMPSON 220 [facility] OFFICE [facility] 2021-12-26 2021-12-26 Telephone [facility] 1.2.840.114 [id number] Univers 00:00:00 00:00:00 Giovany H HEALTH 350.1.13.10 it y of [place] 4.2.7.2.686 Sarkis as MAURICIO?BLEA [phone] Ar dicguilherme SIMPSON [address] MEDICAL OFFICE [facility] 2021-12-25 2021-12-25 Refill Eduar[facility] 1.2.840.114 [id number] Univers 00:00:00 00:00:00 [facility] 350.1.13.10 it y of [place] 4.2.7.2.686 Sarkis as MAURICIO?BLEA [phone] Ar dicguilherme SIMPSON 044 [facility] OFFICE [facility] 2021-12-19 2021-12-19 Outpatient R IVAN [facility] [id number] Univers 10:15:00 11:07:04 DILAN francoiraida [facility] 2021-12-19 2021-12-19 Office [facility] 1.2.857.495 [id number] Univers 10:15:00 11:07:[address] [facility] 350.1.13.10 it y of [place] 4.2.7.2.686 Sarkis as MAURICIO?BLEA [phone] Ar ashley SIMPSON [address] MEDICAL OFFICE [facility] 2021-12-17 2021-12-17 Telephone Witt[facility] 1.2.598.198 [id number] Univers 00:00:00 00:00:00 [facility] 350.1.13.10 it y of [place] 4.2.7.2.686 Sarkis as MAURICIO?BLEA [phone] Ar ashley SIMPSON 044 [facility] OFFICE [facility] 2021-12-12 2021-12-12 Outpatient Hany WAITE [facility] [id number] [facility] 10:15:00 11:10:34 [facility] 2021-12-12 2021-12-12 Office [facility] 1..840.114 [id number] Univers 10:15:00 11:10:34 Visit [facility] 350.1.13.10 it y of [place] 4.2.7.2.686 Sarkis as MAURICIO?BLEA [phone] Ar ashley SIMPSON 198 [facility] OFFICE [facility] 2021-12-12 2021-12-12 Outpatient Hany WAITE [facility] [id number] [facility] 10:15:00 11:10:34 [facility] 2021-12-12 2021-12-12 Outpatient Hany WAITE [facility] [id number] [facility] 10:15:00 10:15:00 [facility] 2021-12-11 2021-12-11 Telephone [facility] 1.2.216.530 [id number] Univers 00:00:00 00:00:00 [facility] 350.1.13.10 it y of [place] 4.2.7.2.686 Sarkis as MAURICIO?BLEA [phone] Ar ashley SIMPSON 044 [facility] OFFICE [facility] 2021-12-10 2021-12-10 Home Visit Field Care Manager Lab, Fritz [facility] 1.2.840.1 14 [id number] Univers 10:00:00 10:15:00 Visit [place] Witt 350.1.13.10 ity of [place] 4.2.7.2.686 Sarkis as MAURICIO?BLEA [phone] Ar ashley SIMPSON [address] MEDICAL OFFICE [facility] 2021-12-10 2021-12-10 Outpatient Hany WITT [facility] [id number] Univers 10:00:00 10:00:00 JEFFERSON iraida [facility] 2021-12-10 2021-12-10 Office [facility] 1.2.840.114 [id number] Univers 09:45:00 10:00:[address] [facility] 350.1.13.10 it y of [place] 4.2.7.2.686 Sarkis as MAURICIO?BLEA [phone] Ar ashley CASTLE 044 [facility] OFFICE [facility] 2021-12-10 2021-12-10 Outpatient [facility] [id number] Univers 09:45:00 09:45:00 JEFFERSON iraida [facility] 2021-12-05 2021-12-05 Office Waite[facility] 1.2.840.114 [id number] Univers 14:15:00 14:30:00 Visit [facility] 350.1.13.10 it y of [place] 4.2.7.2.686 Sarkis as MAURICIO?BLEA [phone] Ar ashley SIMPSON 198 [facility] OFFICE [facility] 2021-12-05 2021-12-05 Outpatient [facility] [id number] Univers 14:15:00 14:15:00 [facility] 2021-12-05 2021-12-05 Outpatient [facility] [id number] Univers 14:15:00 14:15:00 [facility] 2021-12-05 2021-12-05 Orders Doctor MATHEWS 1.2.840.114 [id number] Univers 00:00:00 00:00:00 Only Unassigned, BRYAN 350.1.13.10 ity of [place] [facility] 4.2.7.2.686 Sarkis as [phone] [address] 2021-12-02 2021-12-02 Refprabhjot WittCAR[facility] 1.2.840.114 [id number] Univers 00:00:00 00:00:00 [facility] 350.1.13.10 it y of [place] 4.2.7.2.686 Sarkis as MAURICIO?BLEA [phone] Ar ashley SIMPSON [address] MEDICAL OFFICE [facility] 2021-12-01 2021-12-01 Refprabhjot StevensonCARLSBAD [facility] 1.2.840.114 [id number] Univers 00:00:00 00:00:00 Marylou HEALTH 350.1.13.10 it y of [place] 4.2.7.2.686 Sarkis as MAURICIO?BLEA [phone] Ar ashley SIMPSON [address] MEDICAL OFFICE [facility] 2021-12-01 2021-12-01 Refprabhjot [facility] 1.2.840.114 [id number] Univers 00:00:00 00:00:00 [place] HE[facility] 350.1.13.10 it y of [place] 4.2.7.2.686 Sariks as MAURICIO?BLEA [phone] Ar ashley SIMPSON [address] MEDICAL OFFICE [facility] 2021-11-27 2021-11-27 Orders Doctor BISI 1.2.840.114 [id number] Univers 00:00:00 00:00:00 Only Unassigned, BRYAN 350.1.13.10 ity of [place] [facility] 4.2.7.2.686 Sarkis as [phone] [address] 2021-11-26 2021-11-26 Telephone Mariann [facility] [id number] [id number] Univers 00:00:00 00:00:00 [facility] HEALTH 350.1.13.10 it y of [place] 4.2.7.2.686 Sarkis as MAURICIO?BLEA [phone] Ar ashley SIMPSON [address] MEDICAL OFFICE [facility] 2021-11-25 2021-11-25 Telephone Eduar [facility] [id number] Univers 00:00:00 00:00:00 [place] [facility] 350.1.13.10 it y of [place] 4.2.7.2.686 Sarkis as MAURICIO?BLEA [phone] Me dical CORRINEEY 044 [facility] OFFICE [facility] 2021-11-25 2021-11-25 [facility]phone [facility] [id number] Univers 00:00:00 00:00:00 [place] [facility] 350.1.13.10 it y of [place] 4.2.7.2.686 Sarkis as MAURICIO?BLEA [phone] Me dicguilherme SIMPSON 044 [facility] OFFICE [facility] 2021-11-20 2021-11-20 Telephone [facility] [id number] Univers 00:00:00 00:00:00 Noemi S HEALTH 350.1.13.10 it y of [place] 4.2.7.2.686 Sarkis as MAURICIO?BLEA [phone] Ar ashley SIMPSON 198 [facility] OFFICE [facility] 2021-11-19 2021-11-19 Office [facility] 1.2.840.114 [id number] Univers 13:30:00 13:45:00 Visit Noemi S HEALTH 350.1.13.10 it y of [place] 4.2.7.2.686 Sarkis as MAURICIO?BLEA [phone] Ar ashley SIMPSON 198 [facility] OFFICE [facility] 2021-11-19 2021-11-19 Outpatient Hany WAITE [facility] [id number] Univers 13:30:00 13:30:00 NOEMI iraida [facility] 2021-11-13 2021-11-13 [facility] 1.2.840.114 [id number] Univers 09:45:00 09:54:37 Visit [facility] 350.1.13.10 it y of [place] 4.2.7.2.686 Sarkis as MAURICIO?BLEA [phone] Ar ashley SIMPSON 044 [facility] OFFICE [facility] 2021-11-13 2021-11-13 Outpatient Hany WITT [facility] [id number] Univers 09:45:00 09:54:37 JEFFERSON copeland [facility] 2021-11-13 2021-11-13 Outpatient Hany WITT [facility] [id number] Univers 09:45:00 09:45:00 JEFFERSON copeland [facility] 2021-11-13 2021-11-13 Outpatient R EDUAR [facility] [id number] Univers 09:45:00 09:45:00 JEFFERSON copeland [facility] 2021-11-12 2021-11-12 [facility] 1.2.840.114 [id number] Univers 00:00:00 00:00:00 [facility] 350.1.13.10 it y of [place] 4.2.7.2.686 Sarkis as PROFESSIO [phone] [address] OFFICE [facility] ONE 2021-11-11 2021-11-11 Vik[facility]oriya [facility] 1.2.840.114 [id number] Univers 00:00:00 00:00:00 Marylou HEALTH 350.1.13.10 it y of [place] 4.2.7.2.686 Sarkis as MAURICIO?BLEA [phone] [facility] 220 [facility] OFFICE [facility] 2021-11-04 2021-11-04 [facility] 1.2.840.114 [id number] Univers 00:00:00 00:00:00 Erwin HEALTH 350.1.13.10 it y of [place] 4.2.7.2.686 Sarkis as MAURICIO?BLEA [phone] [address] OFFICE [facility] 2021-11-01 2021-11-01 Vik[facility]oriya [facility] 1.2.840.114 [id number] Univers 00:00:00 00:00:00 [facility] HEALTH 350.1.13.10 it y of [place] 4.2.7.2.686 Sarkis as MAURICIO?BLEA [phone] [facility] 220 [facility] OFFICE BUILDING 2021-10-31 2021-10-31 [facility]oriya [facility] 1.2.840.114 [id number] Univers 00:00:00 00:00:00 [facility] 350.1.13.10 it y of [place] 4.2.7.2.686 Sarkis as MAURICIO?BLEA [phone] [address] OFFICE BUILDING 2021-10-21 2021-10-21 Juan Witt [facility] 1.2.146.894 [id number] Univers 00:00:00 00:00:00 [facility] 350.1.13.10 it y of [place] 4.2.7.2.686 Sarkis as MAURICIO?BLEA [phone] Ar ashley CASTLEEY 044 [facility] OFFICE [facility] 2021-10-10 2021-10-10 Telephone [facility] 1.2.964.050 [id number] Univers 00:00:00 00:00:00 Noemi S HEALTH 350.1.13.10 it y of [place] 4.2.7.2.686 Sarkis as MAURICIO?BLEA [phone] Ar ashley SIMPSON 198 [facility] OFFICE [facility] 2021-10-07 2021-10-07 [facility] [id number] Univers 12:15:00 12:15:00 [facility] 2021-10-02 2021-10-02 Outpatient [facility] [id number] Univers 14:45:00 15:30:28 [facility] 2021-10-02 2021-10-02 Office [facility] 1.2.840.114 [id number] Univers 14:45:00 15:15:00 Visit [facility] 350.1.13.10 it y of [place] 4.2.7.2.686 Sarkis as MAURICIO?BLEA [phone] Ar ashley SIMPSON 198 [facility] OFFICE [facility] 2021-10-02 2021-10-02 Outpatient [facility] [id number] Univers 14:45:00 14:45:00 [facility] 2021-10-02 2021-10-02 Refill [facility] 1.2.840.114 [id number] Univers 00:00:00 00:00:00 [facility] 350.1.13.10 it y of [place] 4.2.7.2.686 Sarkis as PROFESSIO [phone] Ar ashley WYNN [address] OFFICE [facility] ONE 2021-09-20 2021-09-20 Home Visit Field Care Manager Lab, Fritz - Erik [facility] 1.2.840.1 14 [id number] Univers 10:30:00 10:45:[address] [facility] 350.1.13.10 ity of [place] 4.2.7.2.686 Sarkis as MAURICIO?BLEA [phone] Ar ashley CASTLE 353 [facility] OFFICE [facility] 2021-09-20 2021-09-20 Outpatient R EDUAR [facility] [id number] Univers 10:30:00 10:30:00 [facility] 2021-09-19 2021-09-19 Outpatient R [facility] [id number] Univers 10:30:00 10:30:00 ity [facility] 2021-09-17 2021-09-17 Telephone [facility] 1.2.796.412 [id number] Univers 00:00:00 00:00:[address] [facility] 350.1.13.10 it y of [place] 4.2.7.2.686 Sarkis as MAURICIO?BLEA [phone] [address] OFFICE [facility] 2021-09-17 2021-09-17 Telephone [facility] 1.2.095.921 [id number] Univers 00:00:00 00:00:00 [facility] 350.1.13.10 it y of [place] 4.2.7.2.686 Sarkis as MAURICIO?BLEA [phone] [address] OFFICE [facility] 2021-09-13 2021-09-13 Outpatient R EDUAR [facility] [id number] Univers 10:30:00 10:30:[facility]-09-12 2021-09-12 [facility] [id number] Univers 12:00:00 12:00:00 JEFFERSON [facility] 2021-09-12 2021-09-12 Office [facility] 1.2.840.114 [id number] Univers 10:15:00 10:30:00 Visit [facility] 350.1.13.10 it y of [place] 4.2.7.2.686 Sarkis as MAURICIO?BLEA [phone] [address] OFFICE [facility] 2021-09-12 2021-09-12 Outpatient R WITT [facility] [id number] Univers 10:15:00 10:15:00 JEFFERSON copeland [facility] 2021-09-12 2021-09-12 Outpatient Hany WITT [facility] [id number] Univers 10:15:00 10:15:00 JEFFERSON copeland [facility] 2021-09-12 2021-09-12 Telephone [facility] 1.2.840.114 [id number] [facility] 00:00:00 00:00:00 [facility] [employer] 350.1.13.10 it y of [place] 4.2.7.2.686 Sarkis as MAURICIO?BLEA [phone] [address] OFFICE [facility] 2021-09-10 2021-09-10 Outpatient Hany GAMINO [facility] [id number] Univers 10:30:00 11:01:21 MARYLOU itiraida [facility] 2021-09-10 2021-09-10 Office [facility] 1.2.840.114 [id number] Univers 10:30:00 11:01:21 Visit [facility] 350.1.13.10 it y [facility] 4.2.7.2.686 Sarkis as MAURICIO?BLEA [phone] [address] OFFICE [facility] 2021-09-10 2021-09-10 Outpatient [facility] [id number] Univers 10:30:00 11:01:21 MARYLOU iraida [facility] 2021-09-10 2021-09-10 Outpatient Hany GAMINO [facility] [id number] Univers 10:30:00 10:30:00 MARYLOU copeland [facility] 2021-09-10 2021-09-10 Outpatient Hany GAMINO [facility] [id number] Univers 10:30:00 10:30:00 MARYLOU iraida [facility] 2021-09-10 2021-09-10 Outpatient Hany GAMINO [facility] [id number] Univers 10:30:00 10:30:00 MARYLOU iraida [facility] 2021-09-10 2021-09-10 Outpatient [facility] [id number] Univers 10:30:00 10:30:00 MARYLOU iraida [facility] 2021-09-04 2021-09-04 Refprabhjot Witt[facility] 1.2.840.114 [id number] Univers 00:00:00 00:00:00 [facility] 350.1.13.10 it y of [place] 4.2.7.2.686 Sarkis as MAURICIO?BLEA [phone] [address] MEDICAL OFFICE [facility] 2021-09-03 2021-09-03 Emergency X [facility] ERT [id number] Univers 14:14:00 16:13:00 PRAVEEN copeland [facility] 2021-09-03 2021-09-03 Emergency [facility] 1.2.768.878 [id number] Univers 14:14:00 16:13:00 Praveen R [place] 350.1.13.10 i ty of [place] 4.2.7.2.686 [place] [facility] [phone] [address] 2021-09-03 2021-09-03 Juan [facility] 1.2.612.027 [id number] Univers 00:00:00 00:00:00 [facility] 350.1.13.10 it y of [place] 4.2.7.2.686 Sarkis as MAURICIO?BLEA [phone] [address] OFFICE [facility] 2021-09-02 2021-09-02 Viktoriya Witt[facility] 1.2.840.114 [id number] Univers 00:00:00 00:00:00 [facility] 350.1.13.10 it y of [place] 4.2.7.2.686 Sarkis as PROFESSIO [phone] [address] OFFICE BUILDING ONE 2021-09-02 2021-09-02 Viktoriya Witt[facility] 1.2.840.114 [id number] Univers 00:00:00 00:00:00 [facility] 350.1.13.10 it y of [place] 4.2.7.2.686 Sarkis as MAURICIO?BLEA [phone] [address] OFFICE [facility] 2021-08-29 2021-08-29 Office [facility] 1.2.840.114 [id number] Univers 11:45:00 12:00:00 Visit [facility] 350.1.13.10 it y of [place] 4.2.7.2.686 Sarkis as MAURICIO?BLEA [phone] Ar ashley SIMPSON 044 [facility] OFFICE [facility] 2021-08-29 2021-08-29 Outpatient [facility] [id number] Univers 11:45:00 11:45:00 JEFFERSON [facility] 2021-08-28 2021-08-28 Refprabhjot MorrowCARLSBAD [facility] 1.2.840.114 [id number] Univers 00:00:00 00:00:00 [facility] 350.1.13.10 it y of [place] [facility] 4.2.7.2.686 Sarkis as PROFESSIO [phone] [facility] Hospital[facility]il[facility] WYNN [address] [place] [address] ONE 2021-08-15 2021-08-15 Home Visit Field Care Manager Lab, Ang - [facility] 1.2.840.1 14 [id number] Univers 10:45:00 11:00:[address] [facility] 350.1.13.10 ity of [place] 4.2.7.2.686 Sarkis as MAURICIO?BLEA [phone] Ar ashley SIMPSON 353 [facility] OFFICE [facility] 2021-08-15 2021-08-15 Outpatient [facility] [id number] Univers 10:45:00 10:45:00 JEFFERSON [facility] 2021-08-15 2021-08-15 Office [facility] 1.2.840.114 [id number] Univers 10:00:00 10:15:00 Visit [facility] 350.1.13.10 it y of [place] 4.2.7.2.686 Sarkis as MAURICIO?BLEA [phone] Ar ashley SIMPSON 044 [facility] OFFICE [facility] 2021-08-15 2021-08-15 Out[facility] [id number] Univers 10:00:00 10:00:00 JEFFERSON iraida [facility] 2021-08-15 2021-08-15 Outpatient R WITT [facility] [id number] Univers 10:00:00 10:00:00 JEFFERSON ity [facility] 2021-08-15 2021-08-15 Outpatient Hany WITT [facility] [id number] Univers 10:00:00 10:00:00 JEFFERSON ity [facility] 2021-08-15 2021-08-15 Orders Doctor BISI 1.2.840.114 [id number] Univers 00:00:00 00:00:00 Only Unassigned, BRYAN 350.1.13.10 ity of [facility] 4.2.7.2.686 Sarkis as [phone] [address] 2021-08-12 2021-08-12 Outpatient [facility] [id number] Univers 10:00:00 10:00:00 JEFFERSON ity [facility] 2021-08-12 2021-08-12 Outpatient [facility] [id number] Univers 10:00:00 10:00:00 JEFFERSON iraida [facility] 2021-08-07 2021-08-07 Telephone [facility] 1..939.151 [id number] Univers 00:00:00 00:00:00 Brian BRADLEY 350.1.13.10 ity of [place] 4.2.7.2.686 [place] [phone] Ar dicme NAL 059 [facility] 2021-08-06 2021-08-06 Viktoriya Witt[facility] 1.2.840.114 [id number] Univers 00:00:00 00:00:00 [facility] 350.1.13.10 it y of [place] 4.2.7.2.686 Sarkis as PROFESSIO [phone] Ar dicme NAL [address] OFFICE BUILDING ONE 2021-08-06 2021-08-06 [facility] 1.2.254.638 [id number] Univers 00:00:00 00:00:00 Brian BRADLEY 350.1.13.10 ity of [place] 4.2.7.2.686 [place] PROFESS[place] [phone] Ar dical NAL 059 [facility] 2021-08-05 2021-08-05 Outpatient R AUDREY [facility] [id number] Univers 09:54:13 23:59:00 SENDIL [facility] 2021-08-05 2021-08-05 [facility] 1.2.840.114 [id number] Univers 09:54:13 23:59:00 Encounter Brian BRADLEY 350.1.13.10 ity of [place] 4.2.7.2.686 [place] PROF[place] [phone] Ar dical NAL 843 [facility] 2021-08-02 2021-08-02 Laboratory Only, Adc Test [facility] 1.2.840. 114 [id number] Univers 15:30:00 15:45:00 Only Maryam Mckeon 350.1.13.10 ity of [place] 4.2.7.2.686 [place] [phone] [address] 2021-08-02 2021-08-02 Outpatient R MIKE [facility] [id number] Univers 15:30:00 15:30:00 MARYAM [facility] 2021-07-22 2021-07-22 Refprabhjot WittCAR[facility] 1.2.840.114 [id number] Univers 00:00:00 00:00:00 [facility] 350.1.13.10 it y of [facility] 4.2.7.2.686 Sarkis as MAURICIO?BLEA [phone] [address] MEDICAL OFFICE [facility] 2021-07-16 2021-07-16 Juan [facility] 1.2.632.238 [id number] Univers 00:00:00 00:00:00 [facility] 350.1.13.10 it y of [place] 4.2.7.2.686 Sarkis as MAURICIO?BLEA [phone] [address] OFFICE [facility] 2021-07-10 2021-07-10 [facility] [id number] Univers 09:30:00 09:30:00 JEFFERSON [facility] 2021-07-09 2021-07-09 Telephone [facility] 1.2.140.042 [id number] Univers 00:00:00 00:00:00 [facility] 350.1.13.10 it y of [place] 4.2.7.2.686 Sarkis as MAURICIO?BLEA [phone] Ar ashley SIMPSON [address] [place] [address] OFFICE BUILDING 2021-07-08 2021-07-08 Telephone [facility] 1.2.489.322 [id number] Univers 00:00:00 00:00:00 [facility] 350.1.13.10 it y of [place] 4.2.7.2.686 Sarkis as MAURICIO?BLEA [phone] [address] OFFICE [facility] 2021-07-03 2021-07-03 Office [facility] 1.2.840.114 [id number] Univers 15:09:59 15:24:59 Visit [facility] 350.1.13.10 it y of [place] 4.2.7.2.686 Sarkis as MAURICIO?BLEA [phone] [address] OFFICE [facility] 2021-07-03 2021-07-03 [facility] [id number] Univers 15:15:00 15:15:00 JEFFERSON copeland [facility] 2021-07-03 2021-07-03 Refprabhjot WittCAR[facility] 1.2.840.114 [id number] Univers 00:00:00 00:00:00 [facility] 350.1.13.10 it y of [place] 4.2.7.2.686 Sarkis as PROFESSIO [phone] [address] OFFICE BUILDING ONE 2021-07-01 2021-07-01 Telephone [facility] 1.2.901.940 [id number] Univers 00:00:00 00:00:00 [facility]fefr[facility]Formerly [facility] 350.1.13.10 it y of [place] 4.2.7.2.686 Sarkis as MAURICIO?BLEA [phone] [address] OFFICE BUILDING 2021-06-26 2021-06-26 Refill [facility] 1.2.840.114 [id number] Univers 00:00:00 00:00:00 [facility] 350.1.13.10 it y of [place] 4.2.7.2.686 Sarkis as MAURICIO?BLEA [phone] Ar ashley CASTLE[address] MEDICAL OFFICE [facility] 2021-06-26 2021-06-26 Telephone [facility] 1.2.643.721 [id number] Univers 00:00:00 00:00:00 [facility] 350.1.13.10 it y of [place] 4.2.7.2.686 Sarkis as MAURICIO?BLEA [phone] [address] MEDICAL OFFICE [facility] 2021-06-24 2021-06-24 Outpatient R EDUAR [facility] [id number] Univers 09:00:00 09:00:00 JEFFERSON iraida [facility] 2021-06-24 2021-06-24 Telephone [facility] 1.2.026.696 [id number] Univers 00:00:00 00:00:00 [facility] 350.1.13.10 it y of [place] 4.2.7.2.686 Sarkis as MAURICIO?BLEA [phone] Ar ashley [address] 2021-06-20 2021-06-20 Telephone [facility] 1.2.473.047 [id number] Univers 00:00:00 00:00:00 [facility] 350.1.13.10 it y of [place] 4.2.7.2.686 Sarkis as MAURICIO?BLEA [phone] [address] OFFICE [facility] 2021-06-19 2021-06-19 Outpatient R EDUAR [facility] [id number] Univers 12:00:00 12:00:00 [facility] 2021-06-19 2021-06-19 Home Visit 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 Care Manager Lab, Ang - Erik [facility] 1.2.840.1 14 [id number] Univers 10:09:29 10:24:29 Visit Bassam Wittony [employer] 350.1.13.10 ity of [place] 4.2.7.2.686 Sarkis as MAURICIO?BLEA [phone] Me ashley SIMPSON [address] MEDICAL OFFICE BUILDING 2021-06-19 2021-06-19 Office [facility] 1.2.840.114 [id number] Univers 09:41:59 10:11:59 Visit [facility] 350.1.13.10 it y of [place] 4.2.7.2.686 Sarkis as MAURICIO?BLEA [phone] [address] OFFICE [facility] 2021-06-19 2021-06-19 Out[facility] [id number] Univers 10:00:00 10:00:00 JEFFERSON copeland [facility] 2021-06-18 2021-06-18 Telephone [facility] 1.2.512.160 [id number] Univers 00:00:00 00:00:00 [facility] 350.1.13.10 it y of [place] 4.2.7.2.686 Sarkis as MAURICIO?BLEA [phone] [address] OFFICE [facility] 2021-06-11 2021-06-11 Outpatient R KARTHIKEYAN [facility] [id number] Univers 14:40:00 14:40:00 ROBBIE copeland o f [facility] 2021-06-10 2021-06-10 [facility] Cristhian[facility] 1.2.840.114 [id number] Univers 00:00:00 00:00:00 [facility] HEALTH 350.1.13.10 it y of [place] 4.2.7.2.686 Sarkis as PROFESSIO [phone] [address] OFFICE BUILDING ONE 2021-06-10 2021-06-10 Telephone [facility] 1.2.490.460 [id number] Univers 00:00:00 00:00:00 [facility] 350.1.13.10 it y of [place] 4.2.7.2.686 Sarkis as MAURICIO?BLEA [phone] [address] OFFICE [facility] 2021-06-09 2021-06-09 Refill [facility] 1.2.840.114 [id number] Univers 00:00:00 00:00:00 [facility] 350.1.13.10 it y of [facility] 4.2.7.2.686 Sarkis as PROFESSIO [phone] Me dical NAL [address] OFFICE [facility] ONE 2021-06-04 2021-06-04 Imm/Inj Nurse, Adc Pob Immunization [facility] 1.2.840.114 [id number] Univers 14:44:49 14:45:00 Visit Severo Lara 350.1.13 .10 ity of [facility] 4.2.7.2.686 [place] [phone] Me dical NAL 421 [facility] 2021-06-04 2021-06-04 Outpatient R AUDREY [facility] [id number] Univers 14:00:00 14:35:39 SENDIL [facility] 2021-06-04 2021-06-04 Office Audrey [facility] 1.2.840.114 [id number] Univers 13:38:39 14:35:39 Visit Brian BRADLEY 350.1.13.10 ity [facility] 4.2.7.2.686 [place] [phone] Ar dical NAL 059 [facility] 2021-06-04 2021-06-04 Outpatient Hany LARA [facility] [id number] Univers 14:30:00 14:30:00 SEVERO [facility] 2021-06-04 2021-06-04 Outpatient Hany LARA [facility] [id number] Univers 10:40:00 10:40:00 [facility] 2021-06-04 2021-06-04 Transition GARRY Mckeon 1.2.840.114 [id number] Univers 00:00:00 00:00:00 of Care Elizabeth UMANA 350.1.13.10 i ty of [place] 4.2.7.2.686 [place] [phone] [address] 2021-05-31 2021-06-01 Outpatient X TREVER [facility] JOHNNY [id number] Univers 13:04:00 12:55:00 CHERYLE [facility] 2021-05-31 2021-06-01 [facility] Jesus Spain [facility] 1.2.840.1 14 [id number] Univers 13:04:00 12:55:00 Encounter Cheryle Perera 350.1.13.[address] [facility] 4.2.7.2.686 [place] [phone] [address] 2021-05-30 2021-05-30 Outpatient R SOLMOON [facility] [id number] Univers 13:30:00 13:30:00 SEVERO ity [facility] 2021-05-30 2021-05-30 Refprabhjot Witt[facility] 1.2.840.114 [id number] Univers 00:00:00 00:00:00 [facility] 350.1.13.10 it y of [place] 4.2.7.2.686 Sarkis as PROFESSIO [id number] [address] ONE 2021-05-29 2021-05-29 Telephone [facility] 1.2.323.817 [id number] Univers 00:00:00 00:00:00 [facility] 350.1.13.10 it y of [place] 4.2.7.2.686 Sarkis as Mauricio?Blea [phone] [address] 2021-05-28 2021-05-28 Telephone [facility] 1.2.289.147 [id number] Univers 00:00:00 00:00:00 [facility] 350.1.13.10 it y of [facility] 4.2.7.2.686 Sarkis as MAURICIO?BLEA [phone] [address] OFFICE [facility] 2021-05-27 2021-05-27 Telephone [facility] 1.2.644.298 [id number] Univers 00:00:00 00:00:00 [facility] 350.1.13.10 it y of [place] 4.2.7.2.686 Sarkis as Mauricio?Blea [phone] [address] Office [facility] 2021-05-27 2021-05-27 Telephone [facility] 1.2.896.307 [id number] Univers 00:00:00 00:00:00 [facility] 350.1.13.10 it y of [place] 4.2.7.2.686 Sarkis as Mauricio?Blea [phone] [address] Office [facility] 2021-05-22 2021-05-22 Refprabhjot [facility] 1.2.840.114 [id number] Univers 00:00:00 00:00:00 [facility] 350.1.13.10 it y of [place] 4.2.7.2.686 Sarkis as Professio [phone] [address] 2021-05-12 2021-05-12 [facility] 1.2.840.114 [id number] Univers 00:00:00 00:00:00 [facility] 350.1.13.10 it y of [place] 4.2.7.2.686 Sarkis as Professio [phone] [address] 2021-05-10 2021-05-10 Outpatient [facility] [id number] Univers 13:30:00 14:11:31 MARYLOU ity of [facility] 2021-05-10 2021-05-10 Office [facility] 1.2.840.114 [id number] Univers 13:28:18 14:11:31 Visit [facility] 350.1.13.10 it y of [facility] 4.2.7.2.686 Sarkis as MAURICIO?BLEA [phone] [address] 2021-05-09 2021-05-09 Telephone [facility] 1.2.840.114 [id number] Univers 00:00:00 00:00:00 Giovany Bradley 350.1.13.10 i ty of [place] 4.2.7.2.686 [place] Profess[place] [phone] [address] 2021-05-06 2021-05-06 Orders Doctor MATHEWS 1.2.840.114 [id number] Univers 00:00:00 00:00:00 Only Unassigned, BRYAN 350.1.13.10 ity of [place] [facility] 4.2.7.2.686 Sarkis as [phone] [address] 2021-05-01 2021-05-01 Telephone Eduar [facility] [id number] Univers 00:00:00 00:00:00 [facility] 350.1.13.10 it y of [place] 4.2.7.2.686 Sarkis as Mauricio?Blea [phone] [facility] [address] [facility] [address] 2021-04-25 2021-04-25 [facility] 1.2.840.114 [id number] Univers 08:59:52 09:29:52 Visit [facility] 350.1.13.10 it y of [place] 4.2.7.2.686 Sarkis as Mauricio?Blea [phone] [address] Medical Office [facility] 2021-04-25 2021-04-25 [facility] [id number] Univers 09:00:00 09:00:00 JEFFERSON copeland [facility] 2021-04-24 2021-04-24 Urgent Ana Riddle [facility] 1.2.840.114 [id number] Univers 09:29:51 09:50:31 [facility] 350.1.13.10 ity of [place] 4.2.7.2.686 Sarkis as Mauricio?Blea [phone] [facility] [address] [facility] 2021-04-24 2021-04-24 Outpatient R DEREK [facility] [id number] Univers 09:40:00 09:40:00 DORON caban f [facility] 2021-04-18 2021-04-18 Orders Doctor BISI 1.2.840.114 [id number] Univers 00:00:00 00:00:00 Only Unassigned, BRYAN 350.1.13.10 ity of [place] [facility] 4.2.7.2.686 Sarkis as [phone] [address] 2021-04-15 2021-04-15 Telephone Stevenson [facility] [id number] Univers 00:00:00 00:00:00 Marylou Bradley 350.1.13.10 i [place] [phone] Ar dical nal [address] [facility] 2021-04-11 2021-04-11 [facility] 1.2.840.114 [id number] Univers 09:38:42 09:57:48 Visit [facility] 350.1.13.10 it y of [place] 4.2.7.2.686 Sarkis as Mauricio?Blea [phone] Ar ashley kney 044 Formerly Named [facility] 2021-04-11 2021-04-11 Outpatient R WITT [facility] [id number] Univers 09:45:00 09:45:00 JEFFERSON copeland [facility] 2021-04-11 2021-04-11 Home Visit Field Care Manager 2, Adc Lab [facility] 1.2.840.114 [id number] Univers 08:12:22 08:27:22 Visit [facility] 350.1.13.10 [place] [phone] [facility] 353 [facility] 2021-04-11 2021-04-11 Home Visit Field Care Manager 2, Adc Lab [facility] 1.2.840.114 [id number] Univers 08:12:22 08:27:22 Visit [facility] 350.1.13.10 [place] [phone] Ar dicguilherme [facility] 353 [facility] 2021-04-10 2021-04-10 Outpatient R WITT [facility] [id number] Univers 12:00:00 12:00:00 JEFFERSON copeland [facility] 2021-03-31 2021-03-31 Refill Eduar [facility] 1.2.840.114 [id number] Univers 00:00:00 00:00:00 [facility] 350.1.13.10 it y of [place] 4.2.7.2.686 S[place]is [address] Professio [phone] [facility] 044 [facility] 2021-03-31 2021-03-31 [facility] 1.2.840.114 [id number] 24 Univers 00:00:00 00:00:00 [facility] 350.1.13.10 it y of [place] 4.2.7.2.686 [place] as Professio [phone] Ar dical nal [address]44 [address] Office Building One 2021-03-12 2021-03-12 [facility] 1.2.840.114 [id number] Univers 00:00:00 00:00:00 [facility] 350.1.13.10 it y of [place] 4.2.7.2.686 [place] as Professio [phone] Ar dical nal 044 [address] Office [facility] One 2021-03-04 2021-03-04 [facility] 1.2.840.114 [id number] Univers 00:00:00 00:00:00 [facility] 350.1.13.10 it y of [place] 4.2.7.2.686 [place] Professio [phone] Ar dical nal [address] [place] [address] Office [facility] One 2021-03-01 2021-03-01 [facility] 1.2.840.114 [id number] Univers 00:00:00 00:00:00 [facility] 350.1.13.10 it y of [place] 4.2.7.2.686 [place] as Professio [phone] Ar dical nal [address] [place] [address] Office [facility] One 2021-02-26 2021-02-26 [facility] 1.2.551.494 [id number] Univers 00:00:00 00:00:00 [facility] 350.1.13.10 it y of [place] 4.2.7.2.686 [place] as Professio [phone] Ar dical nal [address] [place] [address] Office Building One 2021-02-22 2021-02-22 [facility] 1.2.959.254 [id number] Univers 00:00:00 00:00:00 [facility] 350.1.13.10 it y of [place] 4.2.7.2.686 [place] Professio [phone] [address] One 2021-02-19 2021-02-19 [facility] 1.2.840.114 [id number] Univers 00:00:00 00:00:00 [facility] 350.1.13.10 it y of [place] 4.2.7.2.686 [place] Professio [phone] [address] One 2021-02-18 2021-02-18 [facility] 1.2.840.114 [id number] Univers 11:40:45 23:59:00 Encounter Josse Mirna 350.1.13.10 ity of [place] 4.2.7.2.686 [place] [facility] [phone] [facility] 807 [address] 2021-02-18 2021-02-18 [facility] [id number] Univers 00:00:00 00:00:00 JOSSE copeland [facility] 2021-02-18 2021-02-18 Orders Doctor BISI 1.2.840.114 [id number] Univers 00:00:00 00:00:00 Only Unassigned, BRYAN 350.1.13.10 ity of [place] [facility] 4.2.7.2.686 Sarkis as [phone] [facility] 009 [address] 2021-02-18 2021-02-18 Telephone [facility] 1.2.398.646 [id number] Univers 00:00:00 00:00:00 [facility] 350.1.13.10 it y of [place] 4.2.7.2.686 [place] as Professio [phone] [address] Office [facility] One 2021-02-08 2021-02-08 Outpatient R ELINA [facility] [id number] Univers 08:30:00 08:30:00 GIOVANY copeland [facility] 2021-02-04 2021-02-04 Urgent Provider, [facility] Urgent Care [facility] 1.2.840.114 [id number] Univers 12:13:45 12:31:27 Care Josse Leyva 350.1.13.10 ity of [place] 4.2.7.2.686 [place] as Professio [phone] Ar dical nal 044 [facility] 2021-02-04 2021-02-04 Outpatient R BERONICA [facility] [id number] Univers 12:20:00 12:20:00 JOSSE copeland [facility] 2021-02-04 2021-02-04 [facility] 1.2.840.114 [id number] Univers 00:00:00 00:00:00 [facility] 350.1.13.10 it y of [place] 4.2.7.2.686 [place] as Professio [phone] Ar dical nal 044 [facility] 2021-02-01 2021-02-01 Office Marylou Gamino [facility] 1.2.840.114 [id number] Univers 13:13:42 15:01:09 Visit Giovany Antoine 350.1.13.10 ity of [place]2.7.2.[place] [phone] Ar dical nal 220 [facility] 2021-02-01 2021-02-01 Out[facility] [id number] Univers 13:30:00 13:30:00 GIOVANY iraida [facility] 2021-02-01 2021-02-01 Out[facility] [id number] Univers 13:30:00 13:30:00 GIOVANY iraida [facility] 2021-01-24 2021-01-24 [facility]ya [facility] 1.2.840.114 [id number] Univers 00:00:00 00:00:00 [facility] 350.1.13.10 it y of [place] 4.2.7.2.686 Sariks as Professio [phone] Ar dical nal 044 [facility] 2021-01-16 2021-01-16 [facility]oriya [facility] 1.2.840.114 [id number] Univers 00:00:00 00:00:00 [facility] 350.1.13.10 it y of [place] 4.2.7.2.686 [place]is as Professio [phone] Ar dical nal [address] Office Building One 2021-01-10 2021-01-10 Telephone [facility] 1.2.054.441 [id number] Univers 00:00:00 00:00:00 Romi [facility] 350.1.13.10 ity of [place] 4.2.7.2.686 [place] as Professio [phone] Ar dical nal [address] [place] [address] Office Building One 2021-01-09 2021-01-09 [facility] Romi Dominguez [facility] 1.2.840 .114 [id number] Univers 15:52:45 16:12:45 Mehreen Hernández[facility] 350.1.13.10 ity of [place] 4.2.7.2.686 [place] as Professio [phone] Ar dical nal [address] [place] [address] Office [facility] One 2021-01-09 2021-01-09 Outpatient Hany LEYVA [facility] [id number] Univers 16:00:00 16:00:00 JOSSE ity of [facility] 2021-01-07 2021-01-07 [facility] 1.2.840.114 [id number] Univers 00:00:00 00:00:00 [facility] 350.1.13.10 it y of [place] 4.2.7.2.686 [place] as Professio [phone] Ar dical nal [address] [place] [address] Office [facility] One 2021-01-07 2021-01-07 [facility] 1.2.840.114 [id number] Univers 00:00:00 00:00:00 [facility] 350.1.13.10 it y of [place] 4.2.7.2.686 [place] as Professio [phone] Ar dical nal [address] [place] [address] Office Building One 2021-01-07 2021-01-07 [facility] 1.2.347.158 [id number] Univers 00:00:00 00:00:00 [facility] 350.1.13.10 it y of [place] 4.2.7.2.686 [place] as Professio [phone] Ar dical nal [address] [place] [address] Office Building One 2021-01-07 2021-01-07 Telephone [facility] 1.2.133.479 [id number] Univers 00:00:00 00:00:00 [facility] 350.1.13.10 it y of [place] 4.2.7.2.686 [place] as Professio [phone] [address] Office [facility] One 2021-01-03 2021-01-03 Outpatient R EDUAR [facility] [id number] Univers 12:15:00 12:15:00 JEFFERSON ity of [facility] 2021-01-03 2021-01-03 [facility] 1.2.840.114 [id number] Univers 11:45:12 12:00:12 Visit [facility] 350.1.13.10 it y of [place] 4.2.7.2.686 [place] as Professio [phone] [address] One 2021-01-02 2021-01-02 [facility]ill [facility] 1.2.840.114 [id number] Univers 00:00:00 00:00:00 [facility] 350.1.13.10 it y of [place] 4.2.7.2.686 [place] as Professio [phone] [address] Office [facility] One 2021-01-02 2021-01-02 Telephone [facility] 1.2.586.917 [id number] Univers 00:00:00 00:00:00 [facility] 350.1.13.10 it y of [place] 4.2.7.2.686 [place] as Professio [phone] [address] Office [facility] One 2021-01-01 2021-01-01 Refprabhjot [facility] 1.2.840.114 [id number] Univers 00:00:00 00:00:00 [facility] 350.1.13.10 it y of [place] 4.2.7.2.686 [place] as Professio [phone] [address] Office [facility] One 2021-01-01 2021-01-01 Orders Doctor MATHEWS 1.2.840.114 [id number] Univers 00:00:00 00:00:00 Only Unassigned, BRYAN 350.1.13.10 ity of [place] [facility] 4.2.7.2.686 Sarkis as [phone] [facility] 009 [address] 2020-12-24 2020-12-24 Nurse LiaBISI carvalho 1.2.840.114 [id number] Univers 00:00:00 00:00:00 Triage Araceli TORRES 350.1.13.10 it y of HOSPITAL 4.2.7.2.686 Sarkis as [phone] [facility] 019 [address] 2020-12-07 2020-12-07 [facility] 1.2.840.114 [id number] Univers 00:00:00 00:00:00 [facility] 350.1.13.10 it y of [place] 4.2.7.2.686 [place] as Professio [phone] [address] One 2020-12-05 2020-12-05 Telephone [facility] 1.2.869.465 [id number] Univers 00:00:00 00:00:00 [facility] 350.1.13.10 it y of [place] 4.2.7.2.686 S[place]is as Professio [phone] [facility] nal [address] [place] [address] One 2020-12-03 2020-12-03 Viktoriya [facility] 1.2.840.114 [id number] Univers 00:00:00 00:00:00 [facility] 350.1.13.10 it y of [place] 4.2.7.2.686 S[place] as Professio [phone] [facility] nal [address] [place] [address] One 2020-12-03 2020-12-03 [facility] 1.2.840.114 [id number] Univers 00:00:00 00:00:00 [facility] 350.1.13.10 it y of [place] 4.2.7.2.686 [place] as Professio [phone] [address] One 2020-11-27 2020-11-27 Outpatient R EDUAR [facility] [id number] Univers 09:21:28 23:59:00 JEFFERSON ity [facility] 2020-11-27 2020-11-27 [facility] 1.2.840.114 [id number] Univers 09:21:28 23:59:00 Encounter Jefferson Bradley 350.1.13.10 ity of [place] 4.2.7.2.686 [place] [facility] [phone] [facility] 806 [address] 2020-11-27 2020-11-27 [facility] [id number] Univers 00:00:00 00:00:00 JEFFERSON copeland [facility] 2020-11-27 2020-11-27 Orders Doctor BISI 1.2.840.114 [id number] Univers 00:00:00 00:00:00 Only Unassigned, BRYAN 350.1.13.10 ity of [place] [facility] 4.2.7.2.686 Sarkis as [phone] [facility] 009 [address] 2020-11-21 2020-11-21 Refill Formerly [facility] 1.2.840.114 [id number] Univers 00:00:00 00:00:00 [facility] 350.1.13.10 it y of [place] 4.2.7.2.686 Sarkis as Professio [phone] Ar dical nal 044 [address] Office [facility] One 2020-11-14 2020-11-14 [facility] 1.2.616.900 [id number] Univers 00:00:00 00:00:00 [facility] 350.1.13.10 it y of [place] 4.2.7.2.686 [place] as Professio [phone] Ar dical nal 044 [address] Office [facility] One 2020-11-13 2020-11-13 [facility] [id number] 087 Univers 13:17:58 23:59:00 JEFFERSON copeland [facility] 2020-11-13 2020-11-13 [facility] 1.2.840.114 [id number] Univers 13:17:58 23:59:00 Encounter Jeffersonmee Bradley 350.1.13.10 ity of [place] 4.2.7.2.686 [facility] [phone] [facility] [address] 2020-11-13 2020-11-13 Hospital [facility] 1.2.840.114 [id number] Univers 13:17:10 23:59:00 Encounter Jefferson [facility] 350.1.13.10 ity of [place] 4.2.7.2.686 [facility] [phone] [facility] [address] 2020-11-13 2020-11-13 [facility] [id number] Univers 00:00:00 00:00:00 JEFFERSON copeland [facility] 2020-11-13 2020-11-13 Orders Doctor BISI 1.2.840.114 [id number] Univers 00:00:00 00:00:00 Only Unassigned, BRYAN 350.1.13.10 ity of [place] [facility] 4.2.7.2.686 Sarkis as [phone] [facility] [address] 2020-11-06 2020-11-06 [facility] 1.2.840.114 [id number] Univers 00:00:00 00:00:00 [facility] 350.1.13.10 it y of [place] 4.2.7.2.686 [place] as Professio [phone] Ar dical nal 044 [address] Office [facility] One 2020-10-24 2020-10-24 [facility] 1.2.840.114 [id number] Univers 13:10:01 13:25:01 Visit [facility] 350.1.13.10 it y of [place] 4.2.7.2.686 [place] as Professio [phone] Ar dical nal [address] Office Building One 2020-10-24 2020-10-24 Out[facility] [id number] Univers 13:15:00 13:15:00 JEFFERSON min [facility] 2020-10-24 2020-10-24 Orders Doctor MATHEWS 1.2.840.114 [id number] Univers 00:00:00 00:00:00 Only Unassigned, BRYAN 350.1.13.10 ity of [place] [facility] 4.2.7.2.686 S[place]is as [phone] [address] 2020-10-09 2020-10-09 Refprabhjot [facility] 1.2.840.114 [id number] Univers 00:00:00 00:00:00 [facility] 350.1.13.10 it y of [place] 4.2.7.2.686 [place] as Professio [phone] Ar dical nal 044 [address] Office [facility] One 2020-10-09 2020-10-09 Refprabhjot [facility] 1.2.840.114 [id number] Univers 00:00:00 00:00:00 [facility] 350.1.13.10 it y of [place] 4.2.7.2.686 [place] Professio [phone] [facility] [address] [facility] 2020-10-03 2020-10-03 [facility] 1.2.840.114 [id number] Univers 12:26:09 12:41:09 Visit [facility] 350.1.13.10 it y of [place] 4.2.7.2.686 [place] Professio [phone] [facility] [address] [facility] 2020-10-03 2020-10-03 Outpatient R EDUAR [facility] [id number] Univers 12:15:00 12:15:00 JEFFERSON min [facility] 2020-09-28 2020-09-28 Office [facility] 1.2.217.623 [id number] Univers 13:21:27 14:42:31 Visit Giovany Claudia [place] 350.1.13.10 [place] 4.2.7.2.[place] [phone] [facility] 220 [facility] 2020-09-28 2020-09-28 Outpatient R ELINA [facility] [id number] Univers 13:30:00 13:30:00 GIOVANY copeland [facility] 2020-09-24 2020-09-24 Refprabhjot [facility] 1.2.840.114 [id number] Univers 00:00:00 00:00:00 [facility] 350.1.13.10 it y of [place] 4.2.7.2.686 [place] as Professio [phone] [address] Office [facility] One 2020-09-20 2020-09-20 Emergency X HARPREET [facility] ERT [id number] Univers 11:53:00 12:28:00 JAYASHREE ity of [facility] 2020-09-20 2020-09-20 Emergency [facility] 1.2.840.114 [id number] Univers 11:53:00 12:28:00 Jayashree Zee [place] 350.1.13.10 ity of [place] 4.2.7.2.686 [place] [facility] [phone] [address] 2020-09-19 2020-09-19 Viktoriya [facility] 1.2.840.114 [id number] Univers 00:00:00 00:00:00 [facility] 350.1.13.10 it y of [place] 4.2.7.2.686 [place] as Professio [phone] [address] Office [facility] One 2020-09-14 2020-09-14 Viktoriya [facility] 1.2.840.114 [id number] Univers 00:00:00 00:00:00 [facility] 350.1.13.10 it y of [place] 4.2.7.2.686 [place] as Professio [phone] [address] One 2020-09-13 2020-09-13 Viktoriya [facility] 1.2.840.114 [id number] Univers 00:00:00 00:00:00 [facility] 350.1.13.10 it y of [place] 4.2.7.2.686 [place] as Professio [phone] [address] One 2020-09-06 2020-09-[address] [facility] [id number] Univers 13:30:00 13:40:37 JORGE LUIS ity of [facility] 2020-09-06 2020-09-[address] [facility] [id number] Univers 13:30:00 13:30:00 JORGE LUIS ity of [facility] 2020-08-31 2020-08-31 Office [facility] 1.2.840.114 [id number] Univers 10:35:13 11:37:50 Visit Bisi Bradley 350.1.13.10 i ty of [place] 4.2.7.2.686 [place] [phone] Ar dical nal 188 [facility] 2020-08-31 2020-08-31 Outpatient R JANAE [facility] [id number] Univers 11:00:00 11:00:00 BISI ity [facility] 2020-08-29 2020-08-29 Telephone Elina [facility] 1.2.840.114 [id number] Univers 00:00:00 00:00:00 Giovany H Mirna 350.1.13.10 i ty of [place] 4.2.7.2.686 [place] [phone] Ar dical nal 220 [facility] 2020-08-27 2020-08-27 Refprabhjot Witt [facility] 1.2.840.114 [id number] Univers 00:00:00 00:00:00 [facility] 350.1.13.10 it y of [place] 4.2.7.2.686 [place] as Professio [phone] Ar dical nal [address] Office [facility] One 2020-08-21 2020-08-21 Nurse Guy MATHEWS 1.2.840.114 [id number] Univers 00:00:00 00:00:00 Triage BRYAN Mcclellan 350.1.13.10 ity of [facility] 4.2.7.2.686 Sarkis as [phone] [address] 2020-08-17 2020-08-17 [facility] Janae [facility] 1.2.840.114 [id number] Univers 07:37:00 11:47:00 Encounter Bisi Bradley 350.1.13.10 ity of [place] 4.2.7.2.686 [place] [phone] [address] 2020-08-16 2020-08-16 Laboratory Only, Adc Test [facility] 1.2.840. 114 [id number] Univers 14:00:33 14:15:33 Only Bisi Cardoso 350.1.13 .10 ity of [place] 4.2.7.2.686 [facility] [phone] [facility] [address] 2020-08-16 2020-08-16 Outpatient Hany CARDOSO [facility] [id number] Univers 14:00:00 14:00:00 BISI ity [facility] 2020-08-16 2020-08-16 Orders Doctor BISI 1.2.840.114 [id number] Univers 00:00:00 00:00:00 Only Unassigned, BRYAN 350.1.13.10 ity of [place] [facility] 4.2.7.2.686 Sarkis as [phone] [facility] [address] 2020-08-14 2020-08-14 Telephone [facility] 1.2.840.114 [id number] Univers 00:00:00 00:00:00 Giovany ELIZONDO 350.1.13.10 ity of [place] 4.2.7.2.686 [facility] [phone] [facility] [address] [facility] 2020-08-09 2020-08-[address] [facility] [id number] Univers 15:20:00 15:20:00 JORGE LUIS ity [facility] 2020-08-09 2020-08-[address] [facility] [id number] Univers 15:20:00 15:09:53 JORGE LUIS ity [facility] 2020-08-08 2020-08-08 Telephone [facility] 1.2.999.851 [id number] Univers 00:00:00 00:00:00 [facility] 350.1.13.10 it y of [place] 4.2.7.2.686 [place] as Professio [phone] [address] Office Building One 2020-08-06 2020-08-06 Refill [facility] 1.2.840.114 [id number] Univers 00:00:00 00:00:00 [facility] 350.1.13.10 it y of [place] 4.2.7.2.686 [place] as Professio [phone] Ar dical nal [address] Office Building One 2020-08-06 2020-08-06 Telephone Eduar [facility] 1.2.068.345 [id number] Univers 00:00:00 00:00:00 Jefferson Mirna 350.1.13.10 i ty [place]2.7.2.[place] [phone] Ar dical nal 044 [facility] 2020-07-30 2020-07-30 Home Visit Field Care Manager 2, [facility] Lab [facility] 1.2.840.114 [id number] Univers 10:00:24 10:15:24 Visit Jefferson Witt Mirna 350.1.13.10 ity of [place] 4.2.7.2.686 [place] [phone] Ar dical nal 353 [facility] 2020-07-30 2020-07-30 [facility] [id number] Univers 10:15:00 10:15:00 JEFFERSON copeland [facility] 2020-07-30 2020-07-30 Laboratory Pc, [facility] Echo Room 1 - [facility] 1 .2.840.114 [id number] Univers 08:18:05 09:18:05 Only Robbie Coronado 350.1.13.10 ity of [place] 4.2.7.2.[place] [phone] Ar dicme nal 059 [facility] 2020-07-30 2020-07-30 Nurse Visit, [facility] Nurse [facility] 1.2.840.1 14 [id number] Univers 08:17:07 08:47:07 Visit Robbie Coronado 350.1.13.10 ity of [place] 4.2.7.2.686 [place] [phone] Ar dical nal 059 [facility] 2020-07-30 2020-07-30 Outpatient R [facility] [id number] Univers 08:30:00 08:30:00 ity of [facility] 2020-07-30 2020-07-30 Refill Eduar [facility] 1.2.840.114 [id number] Univers 00:00:00 00:00:00 [facility] 350.1.13.10 it y of [place] 4.2.7.2.686 [place] as Professio [phone] Ar dical nal 044 [facility] One 2020-07-24 2020-07-24 Telephone Eduar [facility] 1.2.216.778 [id number] Univers 00:00:00 00:00:00 [facility] 350.1.13.10 it y of [place] 4.2.7.2.686 [place] as Professio [phone] Ar dical nal 044 [facility] One 2020-07-23 2020-07-23 [facility]ill [facility] 1.2.840.114 [id number] Univers 00:00:00 00:00:00 [facility] 350.1.13.10 it y of [place] 4.2.7.2.686 [place] as Professio [phone] Ar dical nal [address] [facility] 2020-07-20 2020-07-20 Outpatient Hany CARDOSO [facility] [id number] Univers 09:45:00 10:34:29 BISI copeland [facility] 2020-07-20 2020-07-20 Office [facility] 1.2.840.114 [id number] Univers 09:34:36 10:34:29 Visit Bisi Bradley 350.1.13.10 i ty of [id number] [phone] [facility] 188 [facility] 2020-07-20 2020-07-20 Outpatient Hany CARDOSO [facility] [id number] Univers 09:45:00 09:45:00 BISI copeland of [facility] 2020-07-20 2020-07-20 Prep For Praveena [facility] [id number] Univers 00:00:00 00:00:00 Surgery Sandy Bradley [id number] [id number] [phone] Ar dical nal 204 [facility] 2020-07-19 2020-07-19 Telephone Praveena [facility] [id number] Univers 00:00:00 00:00:00 Sandy Bradley [id number] [id number] [phone] Ar dical nal 204 [facility] 2020-07-11 2020-07-11 Outpatient R PRAVEENA [facility] [id number] Univers 14:15:00 15:24:26 SANDY copeland [facility] 2020-07-11 2020-07-11 [facility] [id number] Univers 14:07:33 15:24:26 Visit Sandy Bradley [id number] [id number] [phone] Ar dical nal 204 [facility] 2020-07-11 2020-07-11 Home Visit Field Care Manager Lab, Adc Fam Pob I [facility] 1.2. 840.114 [id number] Univers 12:22:19 12:42:19 [facility] 350.1.13.10 it[place] of [place] 4.2.7.2.686 [place] as Professio [phone] Ar dical nal [address] [facility] 2020-07-11 2020-07-11 Office [facility] 1.2.840.114 [id number] Univers 11:51:24 12:15:39 Visit [facility] 350.1.13.10 it y of [place] 4.2.7.2.686 [place] Professio [phone] Ar dical nal [address] [facility] 2020-07-11 2020-07-11 Outpatient R WITT [facility] [id number] Univers 12:00:00 12:00:00 JEFFERSON copeland [facility] 2020-07-04 2020-07-04 Telephone [facility] 1.2.372.791 [id number] Univers 00:00:00 00:00:00 [facility] 350.1.13.10 it y of [place] 4.2.7.2.686 [place] Professio [phone] Ar dical nal [address] [facility] 2020-06-27 2020-06-27 [facility] 1.2.840.114 [id number] Univers 13:09:36 23:59:00 Encounter Rosette Bradley 350.1.13.10 [place] [phone] [address] 2020-06-27 2020-06-27 Home Visit Field Care Manager Lab, Adc Fam Pob I [facility] 1.2. 840.114 [id number] Univers 11:31:39 11:51:39 Visit Rosette Contreras [facility] 350.1.13.10 ity of [place] 4.2.7.2.686 [place] Professio [phone] Ar dic[address] Office Building One 2020-06-27 2020-06-27 Outpatient R BEN [facility] [id number] Univers 11:40:00 11:43:32 ROSETTE ity [facility] 2020-06-27 2020-06-27 Urgent Provider, [facility] Urgent Care [facility] 1.2.840.114 [id number] Univers 10:46:55 11:43:03 Care Josse Leyva [facility] 350.1.13.10 ity of [place] 4.2.7.2.686 [place] Professio [phone] [address] Office [facility] One 2020-06-27 2020-06-27 Outpatient R BERONICA [facility] [id number] Univers 11:00:00 11:00:00 JOSSE ity [facility] 2020-06-26 2020-06-26 Telephone [facility] 1.2.989.202 [id number] Univers 00:00:00 00:00:00 [facility] 350.1.13.10 it y of [place] 4.2.7.2.686 [place] Professio [phone] [address] Office [facility] One 2020-06-22 2020-06-22 Refill [facility] 1.2.840.114 [id number] Univers 00:00:00 00:00:00 [facility] 350.1.13.10 it y of [place] 4.2.7.2.686 [place] Professio [phone] [address] Office [facility] One 2020-06-21 2020-06-21 Telephone Eduar [facility] 1.2.014.973 [id number] Univers 00:00:00 00:00:00 [facility] 350.1.13.10 it y of [place] 4.2.7.2.686 [place] Professio [phone] Ar dical nal [address] [facility] 2020-06-19 2020-06-19 Refprabhjot [facility] 1.2.840.114 [id number] Univers 00:00:00 00:00:00 [facility] 350.1.13.10 it y of [place] 4.2.7.2.686 [place] Professio [phone] Ar dical nal 044 [address] Office [facility] 2020-06-19 2020-06-19 [facility] 1.2.840.114 [id number] Univers 00:00:00 00:00:00 [facility] 350.1.13.10 it y of [place] 4.2.7.2.686 [place] Professio [phone] Ar dical nal 044 [place] Office [facility] One 2020-06-13 2020-06-13 [facility] 1.2.840.114 [id number] Univers 00:00:00 00:00:00 [facility] 350.1.13.10 it y of [place] 4.2.7.2.686 [place] Professio [phone] Ar dical nal 044 [address] [facility] 2020-06-04 2020-06-04 Telephone [facility] 1.2.840.114 [id number] Univers 00:00:00 00:00:00 Giovany Taylor [place] 350.1.13.10 i [place] [phone] Ar dical nal 220 [facility] 2020-06-01 2020-06-01 Telephone [facility] 1.2.754.552 [id number] Univers 00:00:00 00:00:00 [facility] 350.1.13.10 it y of [place] 4.2.7.2.686 [place] Professio [phone] Ar dical nal 044 [address] Office [facility] 2020-05-29 2020-05-29 [facility] [id number] Univers 09:00:00 09:00:00 JEFFERSON copeland [facility] 2020-05-29 2020-05-29 Telemedici [facility] 1.2.840.114 [id number] Univers 06:53:27 07:08:27 ne Visit [facility] 350.1.13.10 i ty of [place] 4.2.7.2.686 [place] [address]io [phone] [facility] 044 [address] Office [facility] One 2020-05-29 2020-05-29 Refprabhjot Antoine[facility] 1.2.495.031 [id number] Univers 00:00:00 00:00:00 Giovany Bradley 350.1.13.10 i ty [place] [address] [phone] [facility] 220 [facility] 2020-05-21 2020-05-21 Telephone [facility] 1.2.537.651 [id number] Univers 00:00:00 00:00:00 [facility] 350.1.13.10 it y of [place] 4.2.7.2.686 [place] [address] [phone] [facility] 044 [facility] One 2020-05-16 2020-05-16 Refprabhjot [facility] 1.2.840.114 [id number] Univers 00:00:00 00:00:00 [facility] 350.1.13.10 it y of [place] 4.2.7.2.686 [place] [address] [phone] [facility] 044 [facility] One 2020-05-14 2020-05-14 Refprabhjot iWttCARLSBAD MED[facility] 1.2.840.114 [id number] Univers 00:00:00 00:00:00 [facility] 350.1.13.10 it y of [place] 4.2.7.2.686 [place] [address] [phone] [facility] 044 [place] Office [facility] One 2020-05-11 2020-05-11 Telephone [facility] 1.2.484.499 [id number] [id number] Univers 00:00:00 00:00:00 [facility] 350.1.13.10 it y of [place] 4.2.7.2.686 [place] Professio [phone] [address] 2020-05-11 2020-05-11 Telephone Elina [facility] 1.2.840.114 [id number] Univers 00:00:00 00:00:00 Giovany Bradley 350.1.13.10 [place] [phone] [facility] 220 [facility] 2020-05-08 2020-05-08 Outpatient R EDUAR [facility] [id number] Univers 08:45:00 08:45:00 JEFFERSON copeland [facility] 2020-05-08 2020-05-08 Telemedici [facility] 1.2.840.114 [id number] Univers 07:57:55 08:12:55 ne Visit [facility] 350.1.13.10 i ty of [place] 4.2.7.2.686 [place] Professio [phone] [address] 2020-05-08 2020-05-08 Telephone [facility] 1.2.339.231 [id number] Univers 00:00:00 00:00:00 [facility] 350.1.13.10 it y of [place] 4.2.7.2.686 [place] Professio [phone] [address] 2020-05-08 2020-05-08 Telephone [facility] 1.2.338.873 [id number] Univers 00:00:00 00:00:00 Jefferson Bradley 350.1.13.10 i ty [place] [phone] [address] 2020-05-02 2020-05-02 Telephone [facility] 1.2.022.584 [id number] Univers 00:00:00 00:00:00 [facility] 350.1.13.10 it y of [place] 4.2.7.2.686 [place] Professio [phone] [address] 2020-04-24 2020-04-24 [facility] [id number] Univers 09:15:00 09:15:00 JEFFERSON copeland [facility] 2020-04-24 2020-04-24 Telemedici [facility] 1.2.840.114 [id number] Univers 06:51:14 07:06:14 ne Visit [facility] 350.1.13.10 i ty of [place] 4.2.7.2.686 [place] Professio [phone] [address] 2020-04-18 2020-04-18 Refprabhjot Witt[facility] 1.2.840.114 [id number] Univers 00:00:00 00:00:00 [facility] 350.1.13.10 it y of [place] 4.2.7.2.686 [place] Professio [phone] [address] 2020-04-13 2020-04-13 [facility] 1.2.306.313 [id number] Univers 00:00:00 00:00:00 Giovany [place] 350.1.13.10 [place] [phone] [facility] 220 [facility] 2020-04-11 2020-04-11 Outpatient H[facility] [id number] Univers 13:00:00 13:00:00 JEFFERSON copeland [facility] 2020-04-11 2020-04-11 Office [facility] 1.2.840.114 [id number] Univers 12:43:12 12:58:12 Visit [facility] 350.1.13.10 it y of [place] 4.2.7.2.686 [place] Professio [phone] [address] 2020-04-08 2020-04-08 Refprabhjot Witt[facility] 1.2.840.114 [id number] Univers 00:00:00 00:00:00 [facility] 350.1.13.10 it y of [place] 4.2.7.2.686 [place] Professio [phone] Ar dical nal 044 [place] Office [facility] 2020-04-04 2020-04-04 Office [facility] 1.2.389.710 [id number] Univers 13:45:29 14:43:26 Visit Dilan [facility] 350.1.13.10 it y of Surgical 4.2.7.2.686 [place] Specialti [phone] Ar dical es 198 [facility] 2020-04-04 2020-04-04 Outpatient [facility] [id number] Univers 14:00:00 14:00:00 DILAN copeland [facility] 2020-04-02 2020-04-02 [facility] 1.2.840.114 [id number] Univers 00:00:00 00:00:00 [facility] 350.1.13.10 it y of [place] 4.2.7.2.686 [place] Professio [phone] Ar dical nal 044 [place] Office [facility] 2020-04-01 2020-04-01 Nurse Sunny MATHEWS 1.2.840.114 [id number] Univers 00:00:00 00:00:00 Triage d, Alana TORRES 350.1.13.10 ity of HOSPITAL 4.2.7.2.686 [place] as [phone] [address] 2020-04-01 2020-04-01 Telephone Shaynamrata Ketty 1.2.840.114 [id number] Univers 00:00:00 00:00:00 Aleks Torres 350.1.13.10 it y of Hospital 4.2.7.2.686 [place] as [phone] [facility] [address] 2020-03-28 2020-03-28 Outpatient [facility] [id number] Univers 14:15:00 14:15:00 DILAN [facility] 2020-03-24 2020-03-24 Viktoriya [facility] 1.2.840.114 [id number] Univers 00:00:00 00:00:00 [facility] 350.1.13.10 it y of [place] 4.2.7.2.[address] [place] [address] [phone] [facility] 044 [place] Office [facility] 2020-03-23 2020-03-23 Office El[facility] 1.2.919.282 [id number] Univers 13:17:14 14:30:58 Visit Giovany Bradley 350.1.13.10 [place] [phone] [address] 2020-03-23 2020-03-23 Outpatient [facility] [id number] Univers 13:30:00 13:30:00 GIOVANY copeland [facility] 2020-03-23 2020-03-23 Orders Doctor BISI 1.2.840.114 [id number] Univers 00:00:00 00:00:00 Only Unassigned, BRYAN 350.1.13.10 ity of [place] [facility] 4.2.7.2.686 [place] as [phone] [address] 2020-03-20 2020-03-20 Outpatient R [facility] [id number] Univers 14:45:00 14:45:00 NOEMI min of [facility] 2020-03-19 2020-03-19 Telephone Antoine[facility] 1.2.840.114 [id number] Univers 00:00:00 00:00:00 Giovany Bradley 350.1.13.10 i [place] [phone] [address] 2020-03-19 2020-03-19 Refprabhjot WittCAR[facility] 1.2.840.114 [id number] Univers 00:00:00 00:00:00 [facility] 350.1.13.10 it y of [place] 4.2.7.2.686 [place] Professio [phone] [address] Office [facility] 2020-03-16 2020-03-16 Refill [facility] 1.2.432.771 [id number] Univers 00:00:00 00:00:00 Giovany Bradley 350.1.13.10 [place] [phone] [facility] 220 [facility] 2020-03-15 2020-03-15 Telephone [facility] 1.2.166.491 [id number] Univers 00:00:00 00:00:00 [facility] 350.1.13.10 it y of [place] 4.2.7.2.686 [place] [address] [phone] [facility] [address] [facility] 2020-03-13 2020-03-13 Outpatient [facility] [id number] Univers 10:25:12 23:59:00 JOSSE ity of [facility] 2020-03-13 2020-03-13 [facility] 1.2.840.114 [id number] Univers 10:25:12 23:59:00 Encounter Josse Bradley 350.1.13.10 ity of [place] [phone] [address] 2020-03-13 2020-03-13 Urgent Provider, [facility] Urgent Care [facility] 1.2.840.114 [id number] Univers 09:37:13 09:57:13 Care FatemehsheilaZebulices [place] 350.1.13.10 ity of [place] 4.2.7.2.686 [place] Professio [phone] [address] 2020-03-13 2020-03-13 Outpatient R [facility] [id number] Univers 09:40:00 09:40:00 ity of [facility] 2020-03-09 2020-03-09 Telephone [facility] 1.2.887.005 [id number] Univers 00:00:00 00:00:00 Jefferson Bradley 350.1.13.10 i ty [place] [phone] [address] 2020-03-07 2020-03-07 Telephone Antoine[facility] 1.2.840.114 [id number] Univers 00:00:00 00:00:00 Giovany Bradley 350.1.13.10 [place] ty [place] [phone] [facility] [address] [place] [address] 2020-03-03 2020-03-03 [facility] 1.2.840.114 [id number] Univers 00:00:00 00:00:00 [facility] 350.1.13.10 it y of [place] 4.2.7.2.686 [place] Professio [phone] [facility] nal [address] [place] [address] 2020-03-02 2020-03-02 Telephone [facility] 1.2.840.114 [id number] Univers 00:00:00 00:00:00 Giovany [place] 350.1.13.10 i ty [place] [phone] [address] 2020-02-29 2020-02-29 [facility] 1.2.840.114 [id number] Univers 00:00:00 00:00:00 [facility] 350.1.13.10 it y of [place] 4.2.7.2.686 [place] Professio [phone] [facility] [address] [place] [address] 2020-02-28 2020-02-28 [facility] 1.2.840.114 [id number] Univers 00:00:00 00:00:00 [facility] 350.1.13.10 it y of [place] 4.2.7.2.686 [place] Professio [phone] [address] 2020-02-28 2020-02-28 Telephone [facility] 1.2.840.114 [id number] Univers 00:00:00 00:00:00 Giovany [place] 350.1.13.10 i ty [place] [phone] [address] 2020-02-27 2020-02-27 [facility] 1.2.840.114 [id number] Univers 00:00:00 00:00:00 [facility] 350.1.13.10 it y of [place] 4.2.7.2.686 [place] [phone] [facility] [address] [facility] 2020-02-23 2020-02-23 Telephone [facility] 1.2.840.114 [id number] Univers 00:00:00 00:00:00 Giovany Bradley 350.1.13.10 i ty [place] [phone] [facility] 220 [facility] 2020-02-21 2020-02-21 Telephone [facility] 1.2.840.114 [id number] Univers 00:00:00 00:00:00 Giovany Bradley 350.1.13.10 i ty [place] [phone] [facility] 220 [facility] 2020-02-20 2020-02-20 [facility] 1.2.840.114 [id number] Univers 00:00:00 00:00:00 [facility] 350.1.13.10 it y of [place] 4.2.7.2.686 [place] Professio [phone] [address] 2020-02-14 2020-02-14 [facility] 1.2.995.174 [id number] Univers 00:00:00 00:00:00 Jefferson Bradley 350.1.13.10 i ty [place] [phone] [address] 2020-02-10 2020-02-10 [facility] 1.2.840.114 [id number] Univers 00:00:00 00:00:00 [facility] 350.1.13.10 it y of [place] 4.2.7.2.686 [place] Professio [phone] [address] 2020-02-08 2020-02-08 [facility] 1.2.840.114 [id number] Univers 00:00:00 00:00:00 Jefferson Bradley 350.1.13.10 i ty [place] [phone] Ar dical nal [address] [place] [address] 2020-02-02 2020-02-02 [facility] 1.2.840.114 [id number] Univers 00:00:00 00:00:00 [facility] 350.1.13.10 it y of [place] 4.2.7.2.686 [place] Professio [phone] [facility] nal [address] [place] [address] Office [facility] 2020-02-02 2020-02-02 Telephone [facility] 1.2.840.114 [id number] Univers 00:00:00 00:00:00 Giovany H [place] 350.1.13.10 [place] [phone] [facility] 220 [facility] 2020-01-31 2020-01-31 [facility] 1.2.840.114 [id number] Univers 00:00:00 00:00:00 [facility] 350.1.13.10 it y of [place] 4.2.7.2.686 [place] Professio [phone] [facility] nal [address] [place] [address] 2020-01-26 2020-01-26 [facility] 1.2.211.176 [id number] Univers 00:00:00 00:00:00 Giovany H [place] 350.1.13.10 [place] [phone] [facility] 220 [facility] 2020-01-24 2020-01-24 [facility] 1.2.840.114 [id number] Univers 00:00:00 00:00:00 [facility] 350.1.13.10 it y of [place] 4.2.7.2.686 [place] Professio [phone] [facility] nal [address] [place] [address] 2020-01-23 2020-01-23 Telephone [facility] 1.2.840.114 [id number] Univers 00:00:00 00:00:00 Giovany H [place] 350.1.13.10 [place] [phone] Ar dical nal 220 [facility] 2020-01-18 2020-01-18 Refill [facility] 1.2.840.114 [id number] Univers 00:00:00 00:00:00 [facility] 350.1.13.10 it y of [place] 4.2.7.2.686 [place] Professio [phone] Ar dical nal 0[address] [place] Office [facility] 2020-01-09 2020-01-09 Office [facility] 1.2.840.114 [id number] Univers 11:54:37 12:09:37 Visit Jefferson [place] 350.1.13.10 i ty [place]2.[place] [phone] Ar dical nal 044 [facility] 2020-01-09 2020-01-09 Out[facility] [id number] Univers 12:00:00 12:00:00 JEFFERSON min [facility] 2019-12-30 2019-12-30 Telephone [facility] 1.2.072.564 [id number] Univers 00:00:00 00:00:00 [facility] 350.1.13.10 it y of [place] 4.2.7.2.686 [place] Professio [phone] Ar dical nal [address] [facility] 2019-12-29 2019-12-29 Telephone [facility] 1.2.278.726 [id number] Univers 00:00:00 00:00:00 [facility] 350.1.13.10 it y of [place] 4.2.7.2.686 [place] Professio [phone] Ar dical nal 044 [place] Office [facility] 2019-12-27 2019-12-27 Telephone [facility] 1.2.840.114 [id number] Univers 00:00:00 00:00:00 Giovany Bradley 350.1.13.10 i ty [place] [phone] Ar dical nal 220 [facility] 2019-12-27 2019-12-27 Viktoriya Witt [facility] 1.2.840.114 [id number] Univers 00:00:00 00:00:00 [facility] 350.1.13.10 it y of [place] 4.2.7.2.686 [place] Professio [phone] Ar dicguilherme nal [address] Building One 2019-12-20 2019-12-20 Viktoriya Witt [facility] 1.2.840.114 [id number] Univers 00:00:00 00:00:00 [facility] 350.1.13.10 it y of [place] 4.2.7.2.686 [place] Professio [phone] Ar dical nal 044 [facility] Building One 2019-12-15 2019-12-19 Urgent Provider, [facility] Urgent Care [facility] 1.2.840.114 [id number] Univers 10:46:49 09:53:57 Care Mehreen [facility] 350.1.13.10 ity of [place] 4.2.7.2.686 [place] Professio [phone] Ar dical nal [address] [facility] 2019-12-19 2019-12-19 Telephone Fatemehsheila [facility] 1.2.538.691 [id number] Univers 00:00:00 00:00:00 Josse [facility] 350.1.13.10 it y of [place] 4.2.7.2.686 [place] Professio [phone] Ar dical nal 0[address] [facility] 2019-12-16 2019-12-16 Viktoriya Witt [facility] 1.2.840.114 [id number] Univers 00:00:00 00:00:00 [facility] 350.1.13.10 it y of [place] 4.2.7.2.686 [place] Professio [phone] Ar dical nal 0[address] One 2019-12-16 2019-12-16 Viktoriya Witt [facility] 1.2.840.114 [id number] Univers 00:00:00 00:00:00 [facility] 350.1.13.10 it y of [place] 4.2.7.2.686 [place] Professio [phone] [address] 2019-12-15 2019-12-15 Outpatient R [facility] [id number] Univers 11:00:00 11:00:00 ity of [facility] 2019-12-13 2019-12-13 Outpatient R [facility] [id number] Univers 09:40:00 09:40:00 ity of [facility] 2019-12-08 2019-12-08 Doniprabhjot NevarezersCAR[facility] 1.2.840.114 [id number] Univers 00:00:00 00:00:00 [facility] 350.1.13.10 it y of [place] 4.2.7.2.686 [place] Professio [phone] [address] 2019-12-01 2019-12-01 [facility] 1.2.840.114 [id number] Univers 00:00:00 00:00:00 [facility] 350.1.13.10 it y of [place] 4.2.7.2.686 [place] Professio [phone] [address] 2019-11-30 2019-11-30 Viktoriya [facility] 1.2.840.114 [id number] Univers 00:00:00 00:00:00 Jefferson Bradley 350.1.13.10 [place] [phone] [address] 2019-11-29 2019-11-29 Telephone Pob1, Acute [facility] 1.2.840.114 [id number] Univers 00:00:00 00:00:00 [facility] 350.1.13.10 ity of [place] 4.2.7.2.686 [place] Professio [phone] [address] One 2019-11-28 2019-11-28 Doniprabhjot [facility] 1.2.840.114 [id number] Univers 00:00:00 00:00:00 [facility] 350.1.13.10 it y of [place] 4.2.7.2.686 [place] Professio [phone] [address] 2019-11-25 2019-11-25 Home Visit Field Care Manager 2, Adc Lab [facility] 1.2.840.114 [id number] Univers 08:03:12 08:18:12 Visit Jefferson Witt 350.1.13.10 [place]y [place] [phone] [address] 2019-11-25 2019-11-25 Outpatient R EDUAR [facility] [id number] Univers 08:00:00 08:00:00 JEFFERSON copeland [facility] 2019-11-25 2019-11-25 Telephone [facility] [id number] Univers 00:00:00 00:00:00 [facility] [id number] [facility] [place] [id number] [place] [phone] [address] 2019-11-24 2019-11-24 Telephone [facility] [id number] Univers 00:00:00 00:00:00 Keila Bradley [id number] [id number] [phone] [address] 2019-11-24 2019-11-24 [facility] [id number] Univers 00:00:00 00:00:00 [facility] 350.1.13.10 i [facility] [place] [id number] [place] [phone] [address] 2019-11-23 2019-11-23 Outpatient R [facility] [id number] Univers 15:29:34 23:59:00 KEILA francoiraida [facility] 2019-11-23 2019-11-23 [facility] [id number] [id number] Univers 15:15:00 23:59:00 Encounter Keila Bardley [id number] [id number] [phone] [facility] [address] 2019-11-23 2019-11-23 Urgent Pob1, Acute Care Clinic [facility] 1. [id number] [id number] Univers 14:33:27 14:53:27 Care Dariel [facility] 350.1.13.10 ity of [place] 4.2.7.2.686 Sarkis as Professio [phone] Ar dical nal [address] One 2019-11-23 2019-11-23 Outpatient R [facility] [id number] Univers 14:40:00 14:40:00 ity of [facility] 2019-11-23 2019-11-23 [facility] 1.2.840.114 [id number] Univers 00:00:00 00:00:00 [facility] 350.1.13.10 it y of [place] 4.2.7.2.686 [place] as Professio [phone] Ar dical nal [address] [facility] One 2019-11-23 2019-11-23 Refill [facility] 1.2.840.114 [id number] Univers 00:00:00 00:00:00 [facility] 350.1.13.10 it y of [place] 4.2.7.2.686 [place] as Professio [phone] Ar dical nal 044 [facility] One 2019-11-16 2019-11-16 Telephone [facility] 1.2.840.114 [id number] Univers 00:00:00 00:00:00 Giovany Bradley 350.1.13.10 [place] [phone] Ar dical nal 220 [facility] 2019-11-15 2019-11-15 [facility]jot [facility] 1.2.840.114 [id number] Univers 00:00:00 00:00:00 [facility] 350.1.13.10 it y of [place] 4.2.7.2.686 [place] as Professio [phone] Ar dical nal [address] [facility] One 2019-11-10 2019-11-10 Office [facility] 1.2.840.114 [id number] Univers 08:41:49 08:56:49 Visit [facility] 350.1.13.10 i [place] [phone] [facility] nal [address] [place] [address] 2019-11-10 2019-11-10 [facility] [id number] Univers 08:45:00 08:45:00 JEFFERSON copeland [facility] 2019-11-07 2019-11-07 Telephone [facility] 1.2.572.719 [id number] Univers 00:00:00 00:00:00 [facility] 350.1.13.10 it y of [place] 4.2.7.2.686 [place] Professio [phone] [address] One 2019-11-02 2019-11-02 [facility]jot [facility] 1.2.840.114 [id number] Univers 00:00:00 00:00:00 [facility] 350.1.13.10 it y of [place] 4.2.7.2.686 [place] Professio [phone] [facility] nal [address] [place] [address] One 2019-10-26 2019-10-26 [facility]ot [facility] 1.2.840.114 [id number] Univers 00:00:00 00:00:00 [facility] 350.1.13.10 it y of [place] 4.2.7.2.686 [place] Professio [phone] [facility] nal [address] [place] [address] One 2019-10-24 2019-10-24 Telephone [facility] 1.2.031.330 [id number] Univers 00:00:00 00:00:00 [facility] 350.1.13.10 it y of [place] 4.2.7.2.686 [place] Professio [phone] [address] One 2019-10-21 2019-10-21 Doniprabhjot Elina[facility] 1.2.753.317 [id number] Univers 00:00:00 00:00:00 Giovany Bradley 350.1.13.10 [place] [phone] [facility] 220 [facility] 2019-10-18 2019-10-18 Outpatient R [facility] [id number] Univers 08:20:00 08:20:00 ity of [facility] 2019-10-14 2019-10-14 Telephone [facility] 1.2.840.114 [id number] Univers 00:00:00 00:00:00 Giovany Taylor Mirna 350.1.13.10 [place] [phone] [facility] 220 [facility] 2019-10-14 2019-10-14 Telephone [facility] 1.2.840.114 [id number] Univers 00:00:00 00:00:00 Giovany Bradley 350.1.13.10 [place] [phone] [facility] 220 [facility] 2019-10-13 2019-10-13 Telephone [facility] 1.2.997.264 [id number] Univers 00:00:00 00:00:00 [facility] 350.1.13.10 it y of [place] 4.2.7.2.686 [place] as Professio [phone] [facility] nal [address] [place] [address] Office [facility] 2019-10-12 2019-10-12 Refill [facility] 1.2.840.114 [id number] Univers 00:00:00 00:00:00 [facility] 350.1.13.10 it y of [place] 4.2.7.2.686 [place] Professio [phone] [address] Office [facility] One 2019-10-11 2019-10-11 Telephone [facility] 1.2.890.348 [id number] Univers 00:00:00 00:00:00 [facility] 350.1.13.10 it y of [place] 4.2.7.2.686 Sakris as Professio [phone] [address] Office [facility] One 2019-10-11 2019-10-11 Orders Doctor MATHEWS 1.2.840.114 [id number] Univers 00:00:00 00:00:00 Only Unassigned, BRYAN 350.1.13.10 ity of [place] [facility] 4.2.7.2.686 Sarkis as [phone] [address] 2019-10-04 2019-10-04 Refprabhjot Witt [facility] 1.2.840.114 [id number] Univers 00:00:00 00:00:00 [facility] 350.1.13.10 it y of [place] 4.2.7.2.686 [place]arkis as Professio [phone] [facility] nal [address] [place] [address] Office Building One 2019-09-29 2019-09-29 Juan Witt [facility] 1.2.269.294 [id number] Univers 00:00:00 00:00:00 [facility] 350.1.13.10 it y of [place] 4.2.7.2.686 [place] as Professio [phone] [address] Office Building One 2019-09-29 2019-09-29 Juan Witt, [facility] 1.2.524.570 [id number] Univers 00:00:00 00:00:00 [facility] 350.1.13.10 it y of [place] 4.2.7.2.686 [place] as Professio [phone] [facility] nal [address] [place] [address] Office Building One 2019-09-28 2019-09-28 Viktoriya Witt [facility] 1.2.840.114 [id number] Univers 00:00:00 00:00:00 [facility] 350.1.13.10 it y of [place] 4.2.7.2.686 [place] as Professio [phone] [facility] nal [address] [place] [address] Office Building One 2019-09-28 2019-09-28 Juan Witt, [facility] 1.2.634.563 [id number] Univers 00:00:00 00:00:00 [facility] 350.1.13.10 it y of [place] 4.2.7.2.686 [place] as Professio [phone] [address] Office Building One 2019-09-27 2019-09-27 Juan [facility] 1.2.891.836 [id number] Univers 00:00:00 00:00:00 Jefferson Evans 350.1.13.10 it y of [place] 4.2.7.2.686 [place] as Professio [phone] Ar dical nal [address] [facility] 2019-09-26 2019-09-26 Office Eduar [facility] 1.2.840.114 [id number] Univers 14:15:35 14:45:35 Visit [facility] 350.1.13.10 it y of [place] 4.2.7.2.686 [place] [phone] [facility] [address] [facility] 2019-09-26 2019-09-26 [facility] [id number] Univers 14:30:00 14:30:00 JEFFERSON copeland [facility] 2019-09-26 2019-09-26 Orders Doctor MATHEWS 1.2.840.114 [id number] Univers 00:00:00 00:00:00 Only Unassigned, BRYAN 350.1.13.10 ity of [place] [facility] 4.2.7.2.686 Sarkis as [phone] [facility] [address] 2019-09-23 2019-09-23 Outpatient R ELINA [facility] [id number] Univers 13:30:00 14:11:38 GIOVANY francoiraida [facility] 2019-09-23 2019-09-23 Office [facility] 1.2.105.869 [id number] Univers 13:25:38 14:11:38 Visit Giovany Bradley 350.1.13.10 i [place] [phone] [facility] 220 [facility] 2019-09-23 2019-09-23 Nurse Ciara Alvarez 1.2.840.114 [id number] Univers 00:00:00 00:00:00 Triage BRYAN 350.1.13.10 it y of [facility] 4.2.7.2.686 Sarkis as [phone] [facility] [address] 2019-09-16 2019-09-16 Telephone [facility] 1.2.696.355 [id number] Univers 00:00:00 00:00:00 [facility] 350.1.13.10 it y of [place] 4.2.7.2.686 [place] Professio [phone] [address] One 2019-09-13 2019-09-13 Telephone Eduar [facility] 1.2.870.721 [id number] Univers 00:00:00 00:00:00 [facility] 350.1.13.10 it y of [place] 4.2.7.2.686 [place] as Professio [phone] [address] One 2019-09-13 2019-09-13 Orders Doctor BISI 1.2.840.114 [id number] Univers 00:00:00 00:00:00 Only Unassigned, BRYAN 350.1.13.10 ity of [place] [facility] 4.2.7.2.686 [place] as [phone] [address] 2019-09-12 2019-09-12 Refprabhjot Wtit[facility] 1.2.840.114 [id number] Univers 00:00:00 00:00:00 [facility] 350.1.13.10 it y of [place] 4.2.7.2.686 [place] as Professio [phone] [address] One 2019-09-08 2019-09-08 [facility]abhjot Witt[facility] 1.2.840.114 [id number] Univers 00:00:00 00:00:00 [facility] 350.1.13.10 it y of [place] 4.2.7.2.686 [place] as Professio [phone] [address] One 2019-09-05 2019-09-05 Refprabhjot WittCAR[facility] 1.2.840.114 [id number] Univers 00:00:00 00:00:00 [facility] 350.1.13.10 it y of [place] 4.2.7.2.686 [place] as Professio [phone] [address] One 2019-08-25 2019-08-25 Refprabhjot WittCAR[facility] 1.2.840.114 [id number] Univers 00:00:00 00:00:00 [facility] 350.1.13.10 it y of [place] 4.2.7.2.686 Sarkis as Professio [phone] [facility] nal 044 [facility] One 2019-08-25 2019-08-25 Refprabhjot Witt [facility] 1.2.840.114 [id number] Univers 00:00:00 00:00:00 [facility] 350.1.13.10 it y of [place] 4.2.7.2.686 [place] as Professio [phone] [facility] nal [address] [place] [address] One 2019-08-23 2019-08-23 Refprabhjot [facility]ine[facility] 1.2.313.380 [id number] Univers 00:00:00 00:00:00 Giovany Bradley 350.1.13.10 [place] [phone] [facility] 220 [facility] 2019-08-17 2019-08-17 Telephone [facility] 1.2.840.114 [id number] Univers 00:00:00 00:00:00 Giovany Bradley 350.1.13.10 i ty [place].2.[place] [phone] [facility] 220 [facility] 2019-08-15 2019-08-15 [facility]abhjot [facility] 1.2.840.114 [id number] Univers 00:00:00 00:00:00 [facility] 350.1.13.10 it y of [place] 4.2.7.2.686 [place] as Professio [phone] [facility] nal [address] [place] [address] One 2019-08-13 2019-08-13 Viktoriya [facility] 1.2.840.114 [id number] Univers 00:00:00 00:00:00 [facility] 350.1.13.10 it y of [place] 4.2.7.2.686 [place] as Professio [phone] [facility] nal [address] [place] [address] One 2019-04-15 2019-04-15 [facility] 1.2.840.114 [id number] Univers 00:00:00 00:00:00 [facility] 350.1.13.10 it y of [place] 4.2.7.2.686 [place] Professio [phone] [facility] [address] One 2019-04-13 2019-04-13 Office Eduar [facility] 1.2.840.114 [id number] Univers 13:52:51 14:14:54 Visit [facility] 350.1.13.10 it y of [place] 4.2.7.2.686 [place] Professio [phone] [facility] [address] Building One 2019-04-13 2019-04-13 Orders Doctor BISI 1.2.840.114 [id number] Univers 00:00:00 00:00:00 Only Unassigned, BRYAN 350.1.13.10 ity of [place] [facility] 4.2.7.2.686 Sarkis as [phone] [address] 2019-04-07 2019-04-07 Refprabhjot [facility] 1.2.840.114 [id number] Univers 00:00:00 00:00:00 [facility] 350.1.13.10 it y of [place] 4.2.7.2.686 [place] [address] [phone] [facility] 044 [facility] One 2019-04-05 2019-04-05 Telephone [facility] 1.2.840.114 [id number] Univers 00:00:00 00:00:00 Giovany Taylor [place] 350.1.13.10 i [place]2.[place] [phone] [facility] 220 [facility] 2019-04-05 2019-04-05 Viktoriya Witt[facility] 1.2.840.114 [id number] Univers 00:00:00 00:00:00 [facility] 350.1.13.10 it y of [place] 4.2.7.2.686 S[place] as Professio [phone] [address] Office Building One 2019-03-31 2019-03-31 Refprabhjot WittCAR[facility] 1.2.840.114 [id number] Univers 00:00:00 00:00:00 [facility] 350.1.13.10 it y of [place] 4.2.7.2.686 [place] as Professio [phone] [address] One 2019-03-29 2019-03-29 Telephone [facility] 1.2.840.114 [id number] Univers 00:00:00 00:00:00 Giovany Bradley 350.1.13.10 i ty [place]2.7.2.[place] [phone] [address] 2019-03-29 2019-03-29 Orders Doctor BISI 1.2.840.114 [id number] Univers 00:00:00 00:00:00 Only Unassigned, BRYAN 350.1.13.10 ity of [place] [facility] 4.2.7.2.686 Sarkis as [phone] [address] 2019-03-21 2019-03-21 Telephone [facility] 1.2.840.114 [id number] Univers 00:00:00 00:00:00 Giovany Bradley 350.1.13.10 i ty of [place]2.7.2.[place] [phone] [address] 2019-03-17 2019-03-17 [facility]oriya [facility] 1.2.840.114 [id number] Univers 00:00:00 00:00:00 [facility] 350.1.13.10 it y of [place] 4.2.7.2.686 [place] as Professio [phone] [address] 2019-03-17 2019-03-17 [facility]oriya [facility] 1.2.840.114 [id number] Univers 00:00:00 00:00:00 [facility] 350.1.13.10 it y of [place] 4.2.7.2.686 [place] as Professio [phone] [address] One 2019-03-09 2019-03-09 [facility]oriya [facility] 1.2.840.114 [id number] Univers 00:00:00 00:00:00 [facility] 350.1.13.10 it y of [place] 4.2.7.2.686 S[place] as Professio [phone] Ar dicguilherme nal 044 [facility] One 2019-03-03 2019-03-03 Viktoriya Witt [facility] 1.2.840.114 [id number] Univers 00:00:00 00:00:00 [facility] 350.1.13.10 it y of [place] 4.2.7.2.686 [place] as Professio [phone] Ar dical nal 044 [facility] One 2019-02-28 2019-02-28 Viktoriya Witt [facility] 1.2.840.114 [id number] Univers 00:00:00 00:00:00 [facility] 350.1.13.10 it y of [place] 4.2.7.2.686 Sark[place] as Professio [phone] Ar ashley nal [address] [place] [address] One 2018-11-01 2018-11-01 Viktoriya Witt [facility] 1.2.840.114 [id number] Univers 00:00:00 00:00:00 [facility] 350.1.13.10 it y of [place] 4.2.7.2.686 Sarkis as Professio [phone] Ar dicme nal 044 [facility] One Results Test Description Test Time Test Comments Results Result Comments Source COMP. METABOLIC PANEL (10320) 2022-07-19 21:35:09 Test Item Value Reference Range Interpretation Comme nts NA (test code = 6763343630) 139 mmol/L 135-145 K (test code = 3901549018) 4.1 mmol/L 3.5-5.0 CL (test code = 3644607470) 102 mmol/L 98-108 CO2 TOTAL (test code = 2093887113) 29 mmol/L 23-31 AGAP (test code = 0378594660) 2-16 BUN (test code = 4003506145) 12 mg/dL 7-23 GLUCOSE (test code = 1637058446) 236 mg/dL 70-110 H CREATININE (test code = 0.59 mg/dL 0.50-1.04 2668081995) TOTAL BILI (test code = 0.5 mg/dL 0.1-1.8 5383921431) CALCIUM (test code = 8781789844) 8.8 mg/dL 8.6-10.6 T PROTEIN (test code = 2644476566) 7.0 g/dL 6.3-8.2 ALBUMIN (test code = 9352696286) 4.2 g/dL 3.5-5.0 ALK PHOS (test code = 9102716600) 77 U/L 34-122 ALTv (test code = 1742-6) 27 U/L 5-35 AST(SGOT) (test code = 2314479052) 22 U/L 13-40 eGFR (test code = 6540663759) mL/min/1.73m2 DENISHA (test code = DENISHA) Association of Glomerular Filtration Rate (GFR) and Staging of Kidney Disease* + +-------- + ------+| GFR (mL/min/1.73 m2) ?| With Kidney Damage ?| ?Without Kidney Damage+ +-- + +| ?>90 ?| ?Stage one ?| ? Normal ?+ +------- + -------+| ?60-89 ?| ?Stage two ?| ? Decreased GFR ? + +-------- + ------+| ?30-59 ?| ?Stage three ?| ? Stage three ? + +-------- + ------+| ?15-29 ?| ?Stage four ? | ? Stage four ?+ +------- + -------+| ?<15 (or dialysis) ? ?| ?Stage five ? | ? Stage five ?+ +------- + -------+ *Each stage assumes the associated GFR level has been in effect for at least three months. ?Stages 1 to 5, with or without kidney disease, indicate chronic kidney disease. Notes: Determination of stages one and two (with eGFR >59mL/min/1.73 m2) requires estimation of kidney damage for at least three months as defined by structural or functional abnormalities of the kidney, manifested by either:Pathological abnormalities or Markers of kidney damage (including abnormalities in the composition of the blood or urine or abnormalities in imaging tests). Lab Interpretation (test code = Abnormal 89132-2) [facility] WITH [id number] 21:11:06 Test Item Value Reference Range Interpretation Comments WBC (test code = See_Comment [Automated 6690-2) message] The sy stem which generated this result transmitted reference range : 4.30 - 11.10 10*3/?L. The reference range was not used to interpret this result as normal/abnormal . RBC (test code = See_Comment [Automated 789-8) message] The sy stem which generated this result transmitted reference range : 3.93 - 5.25 10*6/?L. The reference range was not used to interpret this result as normal/abnormal . HGB (test code = 11.4 g/dL 11.6-15.0 L 718-7) HCT (test code = 36.4 % 35.7-45.2 4544-3) MCV (test code = 80.4 fL 80.6-95.5 L 787-2) MCH (test code = 25.2 pg 25.9-32.8 L 785-6) MCHC (test code = 31.3 g/dL 31.6-35.1 L 786-4) RDW-SD (test code = 43.3 fL 39.0-49.9 16269-0) RDW-CV (test code = 14.8 % 12.0-15.5 788-0) PLT (test code = See_Comment [Automated 777-3) message] The sy stem which generated this result transmitted reference range : 166 - 358 10*3/ ?L. The reference r victorina was not used to interpret this result as normal/abnormal . MPV (test code = 11.0 fL 9.5-12.9 30859-2) NRBC/100 WBC (test See_Comment [Automat ed code = 0969096436) message] The system which generated this result transmitted reference range : 0.0 - 10.0 /100 WBCs. The refer ence range was not u sed to interpret th is result as normal/abnormal . NRBC x10^3 (test code See_Comment [Auto mated = 5210366601) message] The s ystem which generated this result transmitted reference range : 10*3/?L. The reference range was not used to interpret this result as normal/abnormal . GRAN MAT (NEUT) % 66.5 % (test code = 770-8) IMM GRAN % (test code 0.80 % = 4073460923) LYMPH % (test code = 21.8 % 736-9) MONO % (test code = 7.3 % 5905-5) EOS % (test code = 2.8 % 713-8) BASO % (test code = 0.8 % 706-2) GRAN MAT x10^3(ANC) 7.14 10*3/uL 1.88-7.09 H (test code = 1247061988) IMM GRAN x10^3 (test 0.09 10*3/uL 0.00-0.06 H code = 9986365074) LYMPH x10^3 (test code 2.35 10*3/uL 1.32-3.29 = 731-0) MONO x10^3 (test code 0.79 10*3/uL 0.33-0.92 = 742-7) EOS x10^3 (test code = 0.30 10*3/uL 0.03-0.39 711-2) BASO x10^3 (test code 0.09 10*3/uL 0.01-0.07 H = 704-7) Lab Interpretation Abnormal (test code = 11562-2) [facility] [id number] 16:47:33 Test Item Value Reference Interpretation Comments Range TROPONIN I (test 0.005 ng/mL See_Comment [Automated code = 7499141851) message] The system which generated this result transmitted reference range : <=0.034. The reference range was not used to interpret this result as normal/abnormal . DENISHA (test code = Reference (Normal) DENISHA) Range (defined by the 99th percentile reference limit): <= 0.034 ng/mL Note: Cardiac troponin begins to rise 3-4 hours after the onset of ischemia. Repeat in 4-6 hours if the sample was drawn within 3-4 hours of the onset of the symptom and found normal. Diagnosis of myocardial injury is made with acute changes in cTn concentrations with at least one serial sample above the 99th percentile upper reference limit (URL), taken together with the patient's clinical presentation. Biotin has been reported to cause a negative bias, interpret results relative to patient's use of biotin. Lab Interpretation Normal (test code = 59871-9) [facility]. METABOLIC PANEL (93355)2022-05-29 16:36:15 Test Item Value Reference Range Interpretation Comments NA (test code = 137 mmol/L 135-145 6063226999) K (test code = 4.4 mmol/L 3.5-5.0 8766550108) CL (test code = 100 mmol/L 98-108 9487198175) CO2 TOTAL (test code = 22 mmol/L 23-31 L 5717506001) AGAP (test code = 2-16 4975366670) BUN (test code = 14 mg/dL 7-23 1331455115) GLUCOSE (test code = 190 mg/dL 70-110 H 7461196034) CREATININE (test code = 0.70 mg/dL 0.50-1.04 2251663318) TOTAL BILI (test code = 0.3 mg/dL 0.1-1.0 8996323277) CALCIUM (test code = 9.6 mg/dL 8.6-10.6 0008433283) T PROTEIN (test code = 6.8 g/dL 6.3-8.2 7528498102) ALBUMIN (test code = 4.2 g/dL 3.5-5.0 6319798265) ALK PHOS (test code = 67 U/L 34-122 6504492672) ALTv (test code = 40 U/L 5-35 H 1742-6) AST(SGOT) (test code = 44 U/L 13-40 H 9109301270) eGFR (test code = mL/min/1.73m2 3329202801) DENISHA (test code = DENISHA) Association of Glomerular Filtration Rate (GFR) and Staging of Kidney Disease* + --+ --+ ------+| GFR (mL/min/1.73 m2) ?| With Kidney Damage ?| ?Without Kidney Damage+ --------+ --------+ +| ?>90 ?| ?Stage one ?| ? Normal ?+ ---+ ---+ -------+| ?60-89 ?| ?Stage two ?| ? Decreased GFR ? + --+ --+ ------+| ?30-59 ?| ?Stage three ?| ? Stage three ? + --+ --+ ------+| ?15-29 ?| ?Stage four ? | ? Stage four ?+ ---+ ---+ -------+| ?<15 (or dialysis) ? ?| ?Stage five ? | ? Stage five ?+ ---+ ---+ -------+ *Each stage assumes the associated GFR level has been in effect for at least three months. ?Stages 1 to 5, with or without kidney disease, indicate chronic kidney disease. Notes: Determination of stages one and two (with eGFR >59mL/min/1.73 m2) requires estimation of kidney damage for at least three months as defined by structural or functional abnormalities of the kidney, manifested by either:Pathological abnormalities or Markers of kidney damage (including abnormalities in the composition of the blood or urine or abnormalities in imaging tests). Lab Interpretation Abnormal (test code = 22234-6) [facility] 16:35[facility]55 Test Item Value Reference Range Interpretation Comments LIPASE (test code = 2771332819) 85 U/L 0-220 Lab Interpretation (test code = Normal 72606-1) [facility] WITH [id number] 16:18:33 Test Item Value Reference Range Interpretation Comments WBC (test code = See_Comment [Automated 4020-2) message] The sy stem which generated this result transmitted reference range : 4.30 - 11.10 10*3/?L. The reference range was not used to interpret this result as normal/abnormal . RBC (test code = See_Comment [Automated 687-8) message] The sy stem which generated this result transmitted reference range : 3.93 - 5.25 10*6/?L. The reference range was not used to interpret this result as normal/abnormal . HGB (test code = 12.6 g/dL 11.6-15.0 718-7) HCT (test code = 38.5 % 35.7-45.2 4544-3) MCV (test code = 79.2 fL 80.6-95.5 L 787-2) MCH (test code = 25.9 pg 25.9-32.8 785-6) MCHC (test code = 32.7 g/dL 31.6-35.1 786-4) RDW-SD (test code = 43.2 fL 39.0-49.9 51195-4) RDW-CV (test code = 15.1 % 12.0-15.5 788-0) PLT (test code = See_Comment [Automated 777-3) message] The sy stem which generated this result transmitted reference range : 166 - 358 10*3/ ?L. The reference r victorina was not used to interpret this result as normal/abnormal . MPV (test code = 10.3 fL 9.5-12.9 16863-8) NRBC/100 WBC (test See_Comment [Automat ed code = [id number]) message] The system which generated this result transmitted reference range : 0.0 - 10.0 /100 WBCs. The refer ence range was not u sed to interpret th is result as normal/abnormal . NRBC x10^3 (test code See_Comment [Auto mated = [id number]) message] The s ystem which generated this result transmitted reference range : 10*3/?L. The reference range was not used to interpret this result as normal/abnormal . GRAN MAT (NEUT) % 66.7 % (test code = 770-8) IMM GRAN % (test code 0.80 % = [id number]) LYMPH % (test code = 23.3 % 736-9) MONO % (test code = 5.2 % 5905-5) EOS % (test code = 3.0 % 713-8) BASO % (test code = 1.0 % 706-2) GRAN MAT x10^3(ANC) 6.50 10*3/uL 1.88-7.09 (test code = [id number]) IMM GRAN x10^3 (test 0.08 10*3/uL 0.00-0.06 H code = [id number]) LYMPH x10^3 (test code 2.27 10*3/uL 1.32-3.29 = 731-0) MONO x10^3 (test code 0.51 10*3/uL 0.33-0.92 = 742-7) EOS x10^3 (test code = 0.29 10*3/uL 0.03-0.39 711-2) BASO x10^3 (test code 0.10 10*3/uL 0.01-0.07 H = 704-7) Lab Interpretation Abnormal (test code = 35772-8) [facility] HEMOGLOBIN A1C [id number] 21:18:00 Test Item Value Reference Range Interpretation Comments POCT HBA1C (test code = 4548-4) 7.5 % 4-6 A Lab Interpretation (test code = Abnormal 10141-9) [facility] HEMOGLOBIN A1C [id number] 21:18:00 Test Item Value Reference Range Interpretation Comments POCT HBA1C (test code = 4548-4) 7.5 % 4-6 A Lab Interpretation (test code = Abnormal 05427-2) [facility]
--- NOTE | 2022-07-23 18:06 | EDPHYS ---
Physician Documentation [facility] Name: Jose Edmond Age: 62 yrs Sex: Female : 1960 Arrival Date: 07/23/2022 Time: 16:06 Bed 20 Private MD: ED Physician Hitesh Casas HPI: 07/23 17:53 This 62 yrs old Female presents to ER via Wheelchair with complaints of Foot Infection. snw 17:53 Onset: The symptoms/episode began/occurred 3 week(s) ago, and became persistent. snw Associated signs and symptoms: Pertinent positives: foul odor. Modifying factors: The patient symptoms are alleviated by nothing. The patient has not experienced similar symptoms in the past. The patient has been recently seen by a physician: Dr. Ledesma. Historical: - Allergies: 16:29 Sulfa (Sulfonamide Antibiotics); aa5 16:29 TETRACYCLINES; aa5 - PMHx: 16:29 Chronic obstructive lung disease; diabetes mellitus; Hypertensive disorder; aa5 - PSHx: 16:29 back; section; Cholecystectomy; hernia; hysterectomy; aa5 - Immunization history:: Adult Immunizations unknown. - Social history:: Smoking status: Reported history of juuling and/or vaping. ROS: 17:55 Constitutional: Negative for fever, chills, and weight loss, Eyes: Negative for injury, snw pain, redness, and discharge, ENT: Negative for injury, pain, and discharge, Neck: Negative for injury, pain, and swelling, Cardiovascular: Negative for chest pain, palpitations, and edema, Respiratory: Negative for shortness of breath, cough, wheezing, and pleuritic chest pain, Abdomen/GI: Negative for abdominal pain, nausea, vomiting, diarrhea, and constipation, Back: Negative for injury and pain, : Negative for injury, bleeding, discharge, and swelling, Skin: Negative for injury, rash, and discoloration, Neuro: Negative for headache, weakness, numbness, tingling, and seizure, Psych: Negative for depression, anxiety, suicide ideation, homicidal ideation, and hallucinations. 17:55 MS/extremity: Positive for pain, swelling, tenderness, of the lateral side of left heel and left Achilles. Exam: 17:48 Constitutional: This is a well developed, well nourished patient who is awake, alert, snw and in no acute distress. Head/Face: Normocephalic, atraumatic. Eyes: Pupils equal round and reactive to light, extra-ocular motions intact. Lids and lashes normal. Conjunctiva and sclera are non-icteric and not injected. Cornea within normal limits. Periorbital areas with no swelling, redness, or edema. ENT: Nares patent. No nasal discharge, no septal abnormalities noted. Tympanic membranes are normal and external auditory canals are clear. Oropharynx with no redness, swelling, or masses, exudates, or evidence of obstruction, uvula midline. Mucous membranes moist. Neck: Trachea midline, no thyromegaly or masses palpated, and no cervical lymphadenopathy. Supple, full range of motion without nuchal rigidity, or vertebral point tenderness. No Meningismus. Chest/axilla: Normal chest wall appearance and motion. Nontender with no deformity. No lesions are appreciated. Cardiovascular: Regular rate and rhythm with a normal S1 and S2. No gallops, murmurs, or rubs. Normal PMI, no JVD. No pulse deficits. Respiratory: Lungs have equal breath sounds bilaterally, clear to auscultation and percussion. No rales, rhonchi or wheezes noted. No increased work of breathing, no retractions or nasal flaring. Abdomen/GI: Soft, non-tender, with normal bowel sounds. No distension or tympany. No guarding or rebound. No evidence of tenderness throughout. Back: No spinal tenderness. No costovertebral tenderness. Full range of motion. Neuro: Awake and alert, GCS 15, oriented to person, place, time, and situation. Cranial nerves II-XII grossly intact. Motor strength 5/5 in all extremities. Sensory grossly intact. Cerebellar exam normal. Normal gait. 17:48 Musculoskeletal/extremity: Extremities: grossly normal except: swelling, tenderness, foul odor. 17:48 Skin: Appearance: normal except for affected area, Wound recheck: gangrenous wound evaluated per Dr. Ledesma today. Pt has been on outpatient antibiotics x 2 weeks. Vital Signs: 16:28 BP 150 / 70; Pulse 90; Resp 16 S; Temp 98.3(O); Pulse Ox 98% on R/A; Weight 111.58 kg aa5 (R); Height 5 ft. 5 in. (165.10 cm) (R); 18:00 BP 149 / 67; Pulse 93; Resp 18; Pulse Ox 94% on R/A; ph 19:00 BP 149 / 102; Pulse 95; Resp 18; Pulse Ox 95% on R/A; ph 19:00 BP 149 / 102; Pulse 95; Resp 19; Temp 98.5; Pulse Ox 95% on R/A; Pain 8/10; pf1 20:00 BP 162 / 75; Pulse 98; Resp 20; Temp 98.5; Pulse Ox 95% on R/A; Pain 8/10; pf1 21:00 BP 153 / 60; Pulse 99; Resp 22; Temp 98.2; Pulse Ox 96% on R/A; Pain 8/10; pf1 16:28 Body Mass Index 40.94 (111.58 kg, 165.10 cm) aa5 MDM: 17:27 Patient medically screened. snw 18:06 Data reviewed: vital signs, nurses notes. Data interpreted: Pulse oximetry: on room air snw is 98 %. Interpretation: normal. Counseling: I had a detailed discussion with the patient and/or guardian regarding: the historical points, exam findings, and any diagnostic results supporting the discharge/admit diagnosis, the presence of at least one elevated blood pressure reading (>120/80) during this emergency department visit, lab results, radiology results, the need for further work-up and treatment in the hospital. Physician consultation: Minh Ledesma MD regarding consult, Dr. Ledesma saw pt in clinic today. Physician consultation: Oren Krueger MD was called at 18:07, was contacted at 18:07, regarding admission, to the medical/surgical unit. wants Vancomycin and Cefepime . 07/23 16:28 Order name: Blood Culture Adult (2) snw 07/23 16:28 Order name: CBC with Diff; Complete Time: 18:33 snw 07/23 16:28 Order name: CMP; Complete Time: 18:49 snw 07/23 16:28 Order name: Lactate w/ 2H reflex if indic.; Complete Time: 18:49 snw 07/23 16:28 Order name: Protime (+inr); Complete Time: 18:36 snw 07/23 16:28 Order name: Ptt, Activated; Complete Time: 18:36 snw 07/23 16:28 Order name: EKG; Complete Time: 16:29 snw 07/23 16:28 Order name: Accucheck; Complete Time: 18:18 snw 07/23 16:28 Order name: Cardiac monitoring; Complete Time: 17:34 snw 07/23 16:28 Order name: EKG - Nurse/Tech; Complete Time: 17:34 snw 07/23 16:28 Order name: IV Saline Lock - Large Bore; Complete Time: 18:18 snw 07/23 16:51 Order name: Foot Left 3 View XRAY; Complete Time: 18:40 snw 07/23 18:08 Order name: SARS RAPID; Complete Time: 20:32 snw 07/23 16:28 Order name: Labs collected and sent; Complete Time: 18:18 snw 07/23 16:28 Order name: O2 Per Protocol; Complete Time: 18:18 snw 07/23 16:28 Order name: O2 Sat Monitoring; Complete Time: 18:18 snw 07/23 16:28 Order name: Vital Signs; Complete Time: 18:18 snw EC:48 Rate is 92 beats/min. Rhythm is regular. QRS [place] is Normal. AR interval is normal. QRS snw interval is normal. QT interval is normal. T waves are Flattened in leads V4, V5, V6. Clinical impression: NSR w/ Non-specific ST/T Changes. Administered Medications: 20:00 Drug: vancoMYCIN 1.5 grams Route: IVPB; Rate: calculated rate; Site: right antecubital; pf1 Disposition: 07/24 12:36 Co-signature as Attending Physician, Hitesh Casas MD I agree with the assessment and rt plan of care. Disposition Summary: 07/23/22 18:06 Hospitalization Ordered Hospitalization Status: Inpatient Admission snw Provider: Oren Krueger Location: Telemetry/MedSurg (Inpatient) snw Condition: Stable snw Problem: an acute exacerbation snw Symptoms: are unchanged snw Bed/Room Type: Standard snw Room Assignment: 213(07/23/22 20:48) kd3 Diagnosis - Personal history of diabetic foot ulcer snw Forms: - Medication Reconciliation Form snw - SBAR form snw Signatures: Dispatcher [employer] Meagan Meyer, VALENTÍN-C [employer] SUPERVISOR-Csnw Shavonne Sage RN RN aa5 Sophie Lawrence RN RN kd3 Hitesh Casas MD MD rt Daylin iraheta RN RN pf1 Corrections: (The following items were deleted from the chart) 07/23 20:48 18:06 [email or web address]
--- NOTE | 2022-07-23 18:06 | ER ---
Nurse's Notes [facility] Name: Jose Edmond Age: 62 yrs Sex: Female : 1960 Arrival Date: 07/23/2022 Time: 16:06 Bed 20 Private MD: Diagnosis: Personal history of diabetic foot ulcer Presentation: 07/23 16:28 Chief complaint: Patient states: sent to ER by Dr. Ledesma for left foot wound that is aa5 getting worse. Coronavirus screen: At this time, the client does not indicate any symptoms associated with coronavirus-19. Ebola Screen: Patient denies travel to an Ebola-affected area in the 21 days before illness onset. Initial Sepsis Screen: Does the patient meet any 2 criteria? HR > 90 bpm. Does the patient have a suspected source of infection? Yes:. Risk Assessment: Do you want to hurt yourself or someone else? Patient reports no desire to harm self or others. Onset of symptoms was 2021. 16:28 Method Of Arrival: Wheelchair aa5 16:28 Acuity: MAYRA 3 aa5 Historical: - Allergies: 16:29 Sulfa (Sulfonamide Antibiotics); aa5 16:29 TETRACYCLINES; aa5 - PMHx: 16:29 Chronic obstructive lung disease; diabetes mellitus; Hypertensive disorder; aa5 - PSHx: 16:29 back; section; Cholecystectomy; hernia; hysterectomy; aa5 - Immunization history:: Adult Immunizations unknown. - Social history:: Smoking status: Reported history of juuling and/or vaping. Screenin:21 [facility] ED Fall Risk Assessment (Adult) History of falling in the last 3 months, ph including since admission No falls in past 3 months (0 pts) Confusion or Disorientation No (0 pts) Intoxicated or Sedated No (0 pts) Impaired Gait Yes (1 pt) Mobility Assist Device Used No (0 pt) Altered Elimination No (0 pt) Score/Fall Risk Level 0 - 2 = Low Risk Oriented to surroundings, Maintained a safe environment. Abuse screen: Denies threats or abuse. Denies injuries from another. Nutritional screening: No deficits noted. Tuberculosis screening: No symptoms or risk factors identified. Assessment: 18:00 General: Appears in no apparent distress. comfortable, obese, well groomed, Behavior is ph calm, cooperative, appropriate for age, Reports chills for fever for > 3 days. Pain: Complains of pain in lateral side of left heel. Neuro: Level of Consciousness is awake, alert, obeys commands, Oriented to person, place, time, situation. Cardiovascular: Capillary refill < 3 seconds in bilateral fingers Patient's skin is warm and dry. Respiratory: Airway is patent Respiratory effort is even, unlabored, Respiratory pattern is regular, symmetrical. GI: No signs and/or symptoms were reported involving the gastrointestinal system. Patient currently denies nausea, vomiting. Derm: Skin is pink, warm \T\ dry. Derm: Wound noted lateral side of left heel. Musculoskeletal: Circulation, motion, and sensation intact. Range of motion: intact in all extremities. 19:00 General: Appears in no apparent distress. comfortable, obese, well groomed, well pf1 developed, Behavior is calm, cooperative, appropriate for age, quiet. 19:00 Pain: Complains of pain in lateral side of left heel Quality of pain is described as pf1 dull, sharp, Pain began gradually, for approximately 2 weeks. Neuro: No deficits noted. Level of Consciousness is awake, alert, obeys commands, Oriented to person, place, time, situation. Cardiovascular: Capillary refill < 3 seconds Patient's skin is warm and dry. Respiratory: No deficits noted. Airway is patent Respiratory effort is even, unlabored, Respiratory pattern is regular, symmetrical. GI: No deficits noted. No signs and/or symptoms were reported involving the gastrointestinal system. : No deficits noted. No signs and/or symptoms were reported regarding the genitourinary system. Derm: Skin diabetic left foot ulcer measuring 7cm x 4cm Skin is pink, warm \T\ dry. Wound noted lateral side of left heel Decubitus approximately 7cm x 4cm. Musculoskeletal: Circulation, motion, and sensation intact. Range of motion: intact in all extremities. Vital Signs: 16:28 BP 150 / 70; Pulse 90; Resp 16 S; Temp 98.3(O); Pulse Ox 98% on R/A; Weight 111.58 kg aa5 (R); Height 5 ft. 5 in. (165.10 cm) (R); 18:00 BP 149 / 67; Pulse 93; Resp 18; Pulse Ox 94% on R/A; ph 19:00 BP 149 / 102; Pulse 95; Resp 18; Pulse Ox 95% on R/A; ph 19:00 BP 149 / 102; Pulse 95; Resp 19; Temp 98.5; Pulse Ox 95% on R/A; Pain 8/10; pf1 20:00 BP 162 / 75; Pulse 98; Resp 20; Temp 98.5; Pulse Ox 95% on R/A; Pain 8/10; pf1 21:00 BP 153 / 60; Pulse 99; Resp 22; Temp 98.2; Pulse Ox 96% on R/A; Pain 8/10; pf1 16:28 Body Mass Index 40.94 (111.58 kg, 165.10 cm) aa5 ED Course: 16:06 Patient arrived in ED. rg4 16:24 Arm band placed on. aa5 16:27 Meagan Oneil F[facility]C [facility] snw 16:28 Hitesh Casas MD is Attending Physician. snw 16:29 Triage completed. aa5 17:09 Kelsey Campos, CASTILLO is Primary Nurse. ph 18:05 Oren Krueger MD is Hospitalizing Provider. snw 18:15 Initial lab(s) drawn, by me, sent to lab. First set of blood cultures drawn by me, ph Second set of blood cultures drawn EKG done. Inserted saline lock: 20 gauge in right antecubital area, using aseptic technique. Blood collected. 18:18 Foot Left 3 View XRAY In Process Unspecified. EDMS 18:30 Second set of blood cultures drawn by me, COVID swab sent to lab. ph 19:23 No provider procedures requiring assistance completed. ph 19:24 Patient has correct armband on for positive identification. Bed in low position. Call ph light in reach. Side rails up X 1. Client placed on continuous cardiac and pulse oximetry monitoring. NIBP monitoring applied. 21:10 Dressings: non-adherent dressing x 2 lateral side of left heel with acewrap. pf1 21:18 Patient admitted, IV remains in place. pf1 Administered Medications: 20:00 Drug: vancoMYCIN 1.5 grams Route: IVPB; Rate: calculated rate; Site: right antecubital; pf1 Medication: 19:24 VIS not applicable for this client. ph Intake: 21:46 IV: 1250ml; Total: 1250ml. pf1 Output: 21:46 Urine: 500ml (Voided); Total: 500ml. pf1 Outcome: 18:06 Decision to Hospitalize by Provider. snw 21:18 Admitted to Med/surg accompanied by tech, via wheelchair, room 213. pf1 21:18 Condition: stable 21:18 Instructed on the need for admit, Demonstrated understanding of instructions. 21:44 Admitted to Med/surg Report called to CASTILLO Pedro pf1 21:51 Patient left the ED. pf1 Signatures: Dispatcher [employer] EDMS Meagan Oneil, WEATHER REPORTER-C WEATHER REPORTER-CsnShavonne Mcpherson, RN RN aa5 Kelsey Campos RN RN Antonina Myles rg4 Daylin iraheta RN RN pf1 Corrections: (The following items were deleted from the chart) 21:44 21:18 Instructed on the need for admit, Demonstrated understanding of instructions, pf1 pf1
[2022-07-23 18:31] LABS: Absolute Lymphocytes (CBC) 1.8 K/uL (0.7-4.9); Hematocrit 30.1 % (36.0-45.0); Lymphocytes % 15.8 % (15.3-44.8); MCV 76.3 fL (80-100); MPV 8.2 fL (7.6-11.3); RBC Red Blood Cell Count 3.95 M/uL (3.86-4.86)
[2022-07-23 18:35] LABS: Protime INR 1.05
--- NOTE | 2022-07-23 18:36 | RAD REPORT ---
EXAM DESCRIPTION: RAD - Foot Left 3 View - 07/23/2022 6:16 pm CLINICAL HISTORY: Left Foot pain FINDINGS: No fracture or dislocation is seen. Posterior soft tissue swelling. Cortical regularity involves the posterior calcaneus. This may indicate osteomyelitis and should be c orrelated clinically. Osteoporosis. Calcaneal spurs
[2022-07-23 18:45] LABS: Albumin 2.7 g/dL (3.4-5.0); Bilirubin Total 0.3 mg/dL (0.2-1.0); Potassium 3.4 mmol/L (3.5-5.1); Protein, Total 7.1 g/dL (6.4-8.2)
[2022-07-23] MEDS ORDERED: VANCOMYCIN 1 GM/VIAL ONE (19:52)
[2022-07-23] MEDS ORDERED: NA CHLORIDE 0.9% 500 ML ONE (19:52)
[2022-07-23] MEDS ORDERED: VANCOMYCIN 500 MG/VIAL ONE ×2 (19:52→23:46)
--- NOTE | 2022-07-23 20:18 | P.HP ---
Certification for Inpatient Patient admitted to: Inpatient With expected LOS: >2 Midnights Patient will require the following post-hospital care: None Practitioner: I am a practitioner with admitting privileges, knowledge of patient current condition, hospital course, and medical plan of care. Services: Services provided to patient in accordance with Admission requirements found in Title 42 Section 412.3 of the Code of Federal Regulations Patient History Date of Service: 07/23/22 Reason for admission: Diverticulitis, ureteral calculus History of Present Illness: 66-year-old male with history of diverticulitis, GERD, hypertension, kidney stones presents emergency department for 1 day of left lower quadrant abdominal pain. He was evaluated here in the emergency department labs were unremarkable CT abdomen pelvis IV contrast revealed 2 mm calculus proximal left ureter resulting in mild left nephrosis, mild to moderate sigmoid diverticulitis. Patient was given IV antibiotics Cipro/Flagyl, ED provider wishes to admit for further evaluation and management of diverticulitis, ureteral calculus. Allergies Sulfa (Sulfonamide Antibiotics) Allergy (Verified 07/14/22 13:21) Nausea/Vomiting sulfamethoxazole [From Bactrim] Allergy (Verified 07/14/22 13:21) Nausea/Vomiting tetracycline Allergy (Verified 07/14/22 13:21) Nausea/Vomiting trimethoprim [From Bactrim] Allergy (Verified 07/14/22 13:21) Nausea/Vomiting - Past Medical/Surgical History Diabetic: Yes -: pancreatitis -: depression -: Diverticulitis -: Kidney stones -: cholecystectomy Psychosocial/ Personal History: Patient is retired, lives on with his . - Family History Family History: Reviewed- Non-Contributory - Social History Smoking Status: Never smoker Alcohol use: No Place of Residence: Home Review of Systems 10-point ROS is otherwise unremarkable Gastrointestinal: Nausea, Abdominal Pain Physical Examination - Physical Exam General: Alert, In no apparent distress, Oriented x3 HEENT: Atraumatic, PERRLA, Mucous membr. moist/pink, EOMI, Sclerae nonicteric Neck: Supple, 2+ carotid pulse no bruit, No LAD, Without JVD or thyroid abnormality Respiratory: Clear to auscultation bilaterally, Normal air movement Cardiovascular: Regular rate/rhythm, Normal S1 S2 Capillary refill: <2 Seconds Gastrointestinal: Normal bowel sounds, Tenderness (Mild LLQ/Suprapubic tenderness) Musculoskeletal: No tenderness Integumentary: No rashes Neurological: Normal speech, Normal strength at 5/5 x4 extr, Normal tone, Normal affect - Studies Laboratory Data (last 24 hrs) 07/23/22 18:15: PT 11.5, INR 1.05, APTT 31.9 07/23/22 18:15: Sodium 140, Potassium 3.4 L, BUN 14, Creatinine 0.62, Glucose 107 H, Total Bilirubin 0.3, AST 14 L, ALT 23, Alkaline Phosphatase 79 07/23/22 18:15: WBC 11.60 H, Hgb 9.8 L, Hct 30.1 L, Plt Count 331 Assessment and Plan - Plan Assessment: Acute mild to moderate diverticulitis Mild left hydronephrosis secondary to 2 mm proximal ureteral calculus Hypertension Plan: Acute mild to moderate diverticulitis: NPO, IVF, Antibiotics with cipro/flagyl. Mild LLQ/Suprapubic tenderness, serial abd exams, consult surgery if there is worsening. Mild left hydronephrosis secondary to 2 mm proximal ureteral calculus: Urology consulted, continue with flomax, prn pain meds. Hypertension: Hold oral meds tonight, restart when appropriate. DVT PPX:Lovenox Code status:Full code Discharge Plan: Home Plan to discharge in: 48 Hours - Advance Directives Does patient have a Living Will: No Does patient have a Durable POA for Healthcare: No - Code Status/Comfort Care Code Status Assessed: Yes (Full code) Critical Care: No Time Spent Managing Pts Care (In Minutes): 55
[2022-07-23 20:28] LABS: SARS-CoV-2 Antigen Rapid Res Negative (Negative)
--- NOTE | 2022-07-23 20:38 | P.HP ---
Certification for Inpatient Patient admitted to: Inpatient With expected LOS: >2 Midnights Patient will require the following post-hospital care: None Practitioner: I am a practitioner with admitting privileges, knowledge of patient current condition, hospital course, and medical plan of care. Services: Services provided to patient in accordance with Admission requirements found in Title 42 Section 412.3 of the Code of Federal Regulations Patient History Date of Service: 07/23/22 Reason for admission: Osteomyelitis Left Heel History of Present Illness: 62-year-old female history of COPD, insulin-dependent diabetes, hypertension, depression/anxiety presents emergency department for wound to her left heel. She reports 2 to 3 weeks ago she had an area of dry skin present to her left heel which she began picking and excellently peeled off a layer of what appeared to be healthy tissue, since then she has been following with surgeryDr. Ledesma for wound care she was referred to the emergency department for worsening in her wound. She is evaluated in the emergency department her labs were significant for leukocytosis with white blood cell count of 11.6 and low 9.8 hematocrit 30.1 MCV 76.3 potassium 3.4 x-ray of the left foot was obtained which revealed posterior soft tissue swelling, cortical irregularity involving the posterior calcaneus which may indicate osteomyelitis and should be correlated clinically. Osteoporosis also present with calcaneal spurs. Patient was given broad-spectrum antibiotics including vancomycin/cefepime. ED provider wishes to admit for further evaluation and management of suspected osteomyelitis of left heel. Allergies Sulfa (Sulfonamide Antibiotics) Allergy (Verified 07/14/22 13:21) Nausea/Vomiting sulfamethoxazole [From Bactrim] Allergy (Verified 07/14/22 13:21) Nausea/Vomiting tetracycline Allergy (Verified 07/14/22 13:21) Nausea/Vomiting trimethoprim [From Bactrim] Allergy (Verified 07/14/22 13:21) Nausea/Vomiting - Past Medical/Surgical History Diabetic: Yes -: pancreatitis -: DM -: depression -: Diverticulitis -: Kidney stones -: cholecystectomy Psychosocial/ Personal History: Patient lives at home with family - Family History Family History: Reviewed- Non-Contributory - Social History Smoking Status: Former smoker Alcohol use: No Place of Residence: Home Review of Systems 10-point ROS is otherwise unremarkable Musculoskeletal: Foot Pain, As per HPI Integumentary: As per HPI Physical Examination - Physical Exam General: Alert, In no apparent distress, Oriented x3 HEENT: Atraumatic, PERRLA, Mucous membr. moist/pink, EOMI, Sclerae nonicteric Neck: Supple, 2+ carotid pulse no bruit, No LAD, Without JVD or thyroid abnormality Respiratory: Clear to auscultation bilaterally, Normal air movement Cardiovascular: Regular rate/rhythm, Normal S1 S2 Gastrointestinal: Normal bowel sounds, No tenderness Musculoskeletal: Erythema, Tenderness Integumentary: No rashes, Skin breakdown, Skin lesion, Tenderness/swelling, Erythema, Diabetic ulcer (left heel) Neurological: Normal speech, Normal strength at 5/5 x4 extr, Normal tone, Normal affect - Studies Laboratory Data (last 24 hrs) 07/23/22 18:15: PT 11.5, INR 1.05, APTT 31.9 07/23/22 18:15: Sodium 140, Potassium 3.4 L, BUN 14, Creatinine 0.62, Glucose 107 H, Total Bilirubin 0.3, AST 14 L, ALT 23, Alkaline Phosphatase 79 07/23/22 18:15: WBC 11.60 H, Hgb 9.8 L, Hct 30.1 L, Plt Count 331 Assessment and Plan - Plan Assessment: Suspected left heel osteomyelitis secondary to diabetic foot wound Diabetes mellitus type 2insulin-dependent Hypertension COPD Plan: Suspected left heel osteomyelitis secondary to diabetic foot wound: MRI of left foot ordered, n.p.o. after midnight. Surgical consult in place continue antibiotics with vancomycin/cefepime. Blood cultures obtained we will also obtain wound culture. Infectious disease consult in place. Currently does not meet criteria for sepsis given lack of SIRS criteria. Diabetes mellitus type 2insulin-dependent: ACHS Accu-Chek, sliding scale insulin. Hypertension: Continue medications when appropriate. COPD: As needed nebulizer treatments. DVT PPX:SCD Code status:Full code Discharge Plan: Home Plan to discharge in: 72 Hours - Advance Directives Does patient have a Living Will: No Does patient have a Durable POA for Healthcare: No - Code Status/Comfort Care Code Status Assessed: Yes (Full code) Critical Care: No Time Spent Managing Pts Care (In Minutes): 55
[2022-07-23] MEDS: INSULIN -REGULAR HUMAN 50 UNIT/0.5 ML ML SQ SCH (21:25)
[2022-07-23] MEDS ORDERED: NA CHLORIDE 0.9% 1,000 ML IV SCH (21:25)
[2022-07-23] MEDS ORDERED: VANCOMYCIN 1 GM in NA CHLORIDE 0.9% 250 ML IVPB SCH (21:25)
[2022-07-23] MEDS ORDERED: ONDANSETRON 4 MG/2 ML VIAL IV PRN (21:25)
[2022-07-23] MEDS: CEFEPIME 1 GM in NA CHLORIDE 0.9% 100 ML IV SCH (22:14)
[2022-07-23] MEDS ORDERED: VANCOMYCIN 500 MG in NA CHLORIDE 0.9% 100 ML IVPB ONE (22:15)
[2022-07-23] MEDS: HYDROCODONE/APAP 7.5/325 MG TAB PO PRN (22:50)
[2022-07-23] MEDS ORDERED: NA CHLORIDE 0.9% 100 ML ONE (23:46)
[2022-07-23] MEDS ORDERED: WATER FOR INJ,STERILE 10 ML ONE (23:47)
[2022-07-24 00:59] LABS: Specific Gravity 1.017 (1.005-1.030); Urine Bacteria None Seen /HPF (<20); Urine Bilirubin NEGATIVE (Negative); Urine Blood Negative (Negative); Urine Clarity Clear (Clear); Urine Color Light-Yellow (Yellow); Urine Glucose NEGATIVE (Negative); Urine Mucus Slight /HPF (None Seen); Urine Protein TRACE (Negative); Urine RBC <5 /HPF (None Seen); Urine Urobilinogen Normal (Normal)
[2022-07-24 04:08] LABS: Absolute Lymphocytes (CBC) 2.4 K/uL (0.7-4.9); Hematocrit 28.1 % (36.0-45.0); Lymphocytes % 22.4 % (15.3-44.8); MCV 76.7 fL (80-100); MPV 8.9 fL (7.6-11.3); RBC Red Blood Cell Count 3.66 M/uL (3.86-4.86)
[2022-07-24 04:23] LABS: Albumin 2.4 g/dL (3.4-5.0); Bilirubin Total 0.3 mg/dL (0.2-1.0); Potassium 3.3 mmol/L (3.5-5.1); Protein, Total 6.5 g/dL (6.4-8.2)
[2022-07-24] MEDS: HYDROCODONE/APAP 7.5/325 MG TAB PO PRN ×4 (05:08→23:40)
[2022-07-24] MEDS: D5 0.45 NS 1,000 ML IV SCH ×2 (06:04→19:20)
--- NOTE | 2022-07-24 06:31 | P.PN ---
Date of Service: 07/24/22 Subjective: no significant change since admission last night awaiting Dr. Ledesma ROS: 10 point ROS as noted above, otherwise negative Physical exam GEN: Alert, oriented, NAD,, morbidly obese HEENT: Normal conjunctiva, sclera anicteric CV: Regular rate and rhythm, no edema Pulm: Nonlabored respirations on room air ABD: Soft, nontender, nondistended Integumentary: large left heel foot wound, foul odor, +drainage Neuro: Normal speech, normal affect Problem List Suspected left heel osteomyelitis, secondary to diabetic foot wound Diabetes mellitus type 2insulin-dependent HTN COPD L heel osteomyelitis suspected MRI ordered NPO for possible surgery Dr. Ledesma consulted continue empiric antibiotics - vanc/cefepime f/u cultures accuucheks, sliding scale insulin confirm home meds / restart as appropriate nebs anticipate OR tomorrow VTE: SCDs for surgery Code: full Dispo: home ~2-3 days
[2022-07-24] MEDS: INSULIN -REGULAR HUMAN 50 UNIT/0.5 ML ML SQ SCH ×4 (07:30→21:42)
[2022-07-24] MEDS ORDERED: DEXTROSE 10%-WATER 250 ML IV ONE (08:30)
[2022-07-24] MEDS ORDERED: CEFEPIME 1 GM/VIAL ONE (09:26)
[2022-07-24] MEDS ORDERED: NA CHLORIDE 0.9% 100 ML ONE (09:27)
[2022-07-24] MEDS: CEFEPIME 1 GM in NA CHLORIDE 0.9% 100 ML IV SCH ×2 (09:29→21:42)
[2022-07-24] MEDS: VANCOMYCIN 2 GM in NA CHLORIDE 0.9% 500 ML IVPB SCH ×2 (10:59→22:17)
--- NOTE | 2022-07-24 13:41 | RAD REPORT ---
EXAM DESCRIPTION: MRI - Foot Left Wo Cont - 07/24/2022 1:20 pm CLINICAL HISTORY: Foot wound/osteo COMPARISON: Foot Left 3 View dated 07/23/2022 FINDINGS: Complete thickness tear of the Achilles tendon with retraction by approximately 5.5 cm. Ca lcaneal spurring is present. Edema at Kager's fat pad. Ulceration along the dorsal aspect of the foot overlying the lateral dorsal aspect of the calcaneus. Mild T2 hyperintensity noted within the mid and posterior third of the calcaneus. No corresponding ab normal T1 signal present or alanna bony destruction. No fracture identified. No malalignment. IMPRESSION: Increased T2 signal within the middle and posterior third of the calcaneus without corre sponding T1 hypointensity. While not consistent with active osteomyelitis, the findings is consistent with a predictor of progression to osteomyelitis. No abscess identified. Full-thickness tear of the Achilles tendon with retraction. Edema at Kager's fat pad.
[2022-07-25] MEDS: HYDROCODONE/APAP 7.5/325 MG TAB PO PRN ×3 (05:39→20:58)
[2022-07-25] MEDS: D5 0.45 NS 1,000 ML IV SCH (05:42)
[2022-07-25 06:07] LABS: Absolute Lymphocytes (CBC) 1.9 K/uL (0.7-4.9); Hematocrit 28.3 % (36.0-45.0); Lymphocytes % 22.6 % (15.3-44.8); MPV 8.2 fL (7.6-11.3); RBC Red Blood Cell Count 3.72 M/uL (3.86-4.86)
[2022-07-25 06:22] LABS: Albumin 2.5 g/dL (3.4-5.0); Bilirubin Total 0.4 mg/dL (0.2-1.0); Protein, Total 6.7 g/dL (6.4-8.2)
--- NOTE | 2022-07-25 06:30 | P.PN ---
Date of Service: 07/25/22 Subjective: no acute events overnight scheduled for OR today ROS: 10 point ROS as noted above, otherwise negative Physical exam GEN: Alert, oriented, NAD,, morbidly obese HEENT: Normal conjunctiva, sclera anicteric CV: Regular rate and rhythm, no edema Pulm: Nonlabored respirations on room air ABD: Soft, nontender, nondistended Integumentary: large left heel foot wound, foul odor, +drainage Neuro: Normal speech, normal affect Problem List Suspected left heel osteomyelitis, secondary to diabetic foot wound Diabetes mellitus type 2insulin-dependent HTN COPD L heel osteomyelitis suspected MRI ~equivocal findings NPO for surgery Dr. Ledesma consulted continue empiric antibiotics - vanc/cefepime f/u cultures ID consulted, recommend PICC / 6 weeks of IV antibiotics accuucheks, sliding scale insulin confirm home meds / restart as appropriate nebs VTE: SCDs for surgery Code: full Dispo: home, ~3 days PICC, IV antibiotics x 6 weeks jmay benefit from SNF/LTAC depending on healing / wound care / ambulation over next 1-2 days
[2022-07-25] MEDS: INSULIN -REGULAR HUMAN 50 UNIT/0.5 ML ML SQ SCH ×4 (07:30→20:59)
[2022-07-25] MEDS: CEFEPIME 1 GM in NA CHLORIDE 0.9% 100 ML IV SCH (08:23)
[2022-07-25] MEDS: VANCOMYCIN 2 GM in NA CHLORIDE 0.9% 500 ML IVPB SCH (08:23)
[2022-07-25] MEDS ORDERED: NA CHLORIDE 0.9% 1,000 ML ONE (09:13)
[2022-07-25] MEDS ORDERED: propofoL 200 MG/20 ML VIAL IV ONE (09:52)
[2022-07-25] MEDS ORDERED: MIDAZOLAM HCL 2 MG/2 ML INJ ONE (09:53)
[2022-07-25] MEDS ORDERED: FENTANYL CITR 100 MCG/2 ML ONE (09:53)
[2022-07-25] MEDS ORDERED: LIDOCAINE 2% MPF 5 ML VIAL ONE (09:54)
[2022-07-25] MEDS ORDERED: ONDANSETRON 4 MG/2 ML VIAL ONE (09:56)
[2022-07-25] MEDS ORDERED: CEFEPIME 2 GM in NA CHLORIDE 0.9% 100 ML IV SCH (10:00)
[2022-07-25] MEDS ORDERED: BUPIVACAINE 0.5% PF 10 ML VIAL ONE (10:47)
--- NOTE | 2022-07-25 11:12 | P.BOP ---
Preoperative diagnosis: Necrotic left heel diabetic woun Postoperative diagnosis: same Primary procedure: Excisional debridement of Necrotic left heel diabetic wound 8x5 cm Estimated blood loss: <10cc Specimen: culture, necrotic tissue Findings: as above Anesthesia: General Complications: None Transferred to: Recovery Room Condition: Good
[2022-07-25] MEDS ORDERED: HYDROMORPHONE HCL 1 MG/ML INJ ONE (11:25)
--- NOTE | 2022-07-25 12:48 | OP ---
Date of Procedure: 07/25/2022 Surgeon: Minh Ledesma MD Diagnosis: Necrotic left heel diabetic wound with cellulitis, necrotic tissue, abscess. Postoperative Diagnosis: Necrotic left heel diabetic wound with cellulitis, necrotic tissue, abscess . Procedure: Excisional debridement of necrotic left heel diabetic wound 8 x 5 cm. Estimated Blood Loss: Less than 10 cc. Specimen: Culture and necrotic tissue. Anesthesia: General plus local. Findings: Necrotic tissue, multiple areas, on the left heel and ankle region. Foul smelling. Indications: This is a case of a 62-year-old patient who comes to us with a foul smelling left heel necrotic ulcer. She has been on p.o. antibiotics. She has been seen recently by primary care physic kady and quality assurance representative, but the area kept getting worse. She was admitted to the hospital and a surgical consult was obtained for debridement. The benefits, alternatives, and risks were fully explained wh ich include, but not limited to, infection, bleeding, damage to adjacent structures, anesthesia compl ication, recurrence, OR, and even . She also understands this may not relieve any symptoms. Paddy mike might need more than one surgical intervention. She understands this will require wound care and m ultiple debridements. She understands the importance of losing weight and diabetes control. She was advised in the future to get some advice from the orthopedic doctor about her Achilles tendon. At t his moment, that area is involved with extensive necrotic and devitalized tissue and we have to clean that area first. She signed a consent. The area of concern was marked by me and the patient in the holding room. Procedure In Detail: Patient was brought to the operating room, placed in supine position. Anesthes ia was given without complication. Left heel was prepped and draped in sterile fashion. Local anest hesia was applied followed by sharp incision of the entire area of necrotic area which was heel and m idline of the malleolus. There was foul smelling necrotic tissue present there that was all removed. Loculations were explored and opened. Cultures were done before removal. Area was irrigated. Hem ostasis was obtained. Then we used pulse jet lavage to irrigate the area with almost 3 L of saline. Area was irrigated, and then after that, we proceeded to pack the area with wet-to-dry dressing. Manuel valdez tolerated the procedure well. Patient was sent to Recovery in stable condition. HM/QAMAR Voice ID: [id number] Report ID: [id number]
[2022-07-25] MEDS: MORPHINE 2 MG/ML SYR IV PRN ×2 (13:28→22:35)
--- NOTE | 2022-07-25 15:27 | CON ---
Reason For Consultation: Patient is being seen for left heel osteomyelitis. History Of Present Illness: A 62-year-old female with significant history of diabetes mellitus and d iabetic neuropathy, insulin dependent, hypertension, depression, and anxiety, had surgical debridemen t done today with an extensive involvement of heel and Achilles tendon as per the surgical team. Cur rently, being treated with vancomycin and cefepime. Feels little nauseous coming out of surgery. Past Medical History: As per HPI. Social History: Tobacco positive. Alcohol negative. Family History: Noncontributory. Medications: Vancomycin and cefepime. See MAR for other medications. Allergies: SULFA DRUGS AND TETRACYCLINE CAUSES NAUSEA AND ITCHING. Review of Systems: A 10-point review was performed. Physical Examination: General: This is a 62-year-old female, lying in bed, not in any acute cardiopulmonary distress. Vital Signs: Temperature 97.8, pulse 96, respirations 18, blood pressure 131/61. HEENT: Unremarkable. Neck: Supple. Lungs: Basal crackles. Heart: S1, S2. Regular. Abdomen: Soft, nontender. Bowel sounds present. Extremities: Left leg 1+ edema with surgical wound dressing in place. Laboratory Data: Shows WBC 8.5 down from 11.6, hemoglobin 9.3, platelets are 342. BUN 7, creatinine 0.5. Albumin level is 2.5. MRI of the foot shows increased T2 signal within middle and posterior t hird of the calcaneus without corresponding T1 intensity while not consistent with active osteomyelit is. The finding is consistent with predictor progression to osteomyelitis. No abscess found. Full thickness tear of Achilles tendon is also noted. Assessment And Plan: Osteomyelitis of left calcaneus with tear of Achilles tendon, status post debri suellen by surgical team. Patient is currently on empiric vancomycin and cefepime. Diabetes mellitus and diabetic neuropathy complicating the patient condition. Moderate protein-calorie malnourishment , anemia of chronic disease. We will recommend 6 weeks of antibiotic and consider long-term acute ca re. We will re-evaluate the patient on Thursday. Keep legs elevated when possible. Thank you Dr. Krueger for consult. NF/MODL Voice ID: [id number] Report ID: [id number]
[2022-07-25] MEDS: COLLAGENASE 30 GM OINTMENT TOP SCH (16:32)
[2022-07-25] MEDS: CEFEPIME 2 GM in NA CHLORIDE 0.9% 100 ML IV SCH (16:32)
[2022-07-25] MEDS: GABAPENTIN 300 MG CAP PO SCH ×2 (16:39→20:59)
[2022-07-25] MEDS: NIFEDIPINE XL 30 MG TABLET PO SCH (20:59)
[2022-07-25] MEDS: VANCOMYCIN 1.75 GM in NA CHLORIDE 0.9% 500 ML IVPB SCH (21:00)
[2022-07-25] MEDS ORDERED: ALBUTEROL 2.5 MG/3 ML NEB SOL NEB PRN (22:46)
[2022-07-26] MEDS: CEFEPIME 2 GM in NA CHLORIDE 0.9% 100 ML IV SCH ×3 (01:27→16:21)
[2022-07-26] MEDS: HYDROCODONE/APAP 7.5/325 MG TAB PO PRN ×3 (05:12→18:37)
[2022-07-26 05:13] VITALS: BMI 42.0
[2022-07-26 06:23] LABS: Absolute Lymphocytes (CBC) 1.9 K/uL (0.7-4.9); Hematocrit 28.2 % (36.0-45.0); Lymphocytes % 21.1 % (15.3-44.8); MCV 76.4 fL (80-100); MPV 8.3 fL (7.6-11.3)
[2022-07-26 06:41] LABS: Albumin 2.3 g/dL (3.4-5.0); Bilirubin Total 0.3 mg/dL (0.2-1.0); Potassium 3.2 mmol/L (3.5-5.1); Protein, Total 6.3 g/dL (6.4-8.2); Troponin High Sensitivity 15.6 pg/mL (<58.9)
[2022-07-26] MEDS: INSULIN -REGULAR HUMAN 50 UNIT/0.5 ML ML SQ SCH ×4 (07:30→20:37)
[2022-07-26] MEDS: COLLAGENASE 30 GM OINTMENT TOP SCH (09:00)
[2022-07-26] MEDS ORDERED: SPIRONOLACTONE 25 MG TABLET PO SCH (09:00)
[2022-07-26] MEDS: VENLAFAXINE HCL XR 75 MG CAP PO SCH (09:04)
[2022-07-26] MEDS: NIFEDIPINE XL 30 MG TABLET PO SCH ×2 (09:05→20:35)
[2022-07-26] MEDS: GABAPENTIN 300 MG CAP PO SCH ×4 (09:05→20:36)
--- NOTE | 2022-07-26 10:53 | RAD REPORT ---
EXAM DESCRIPTION: RAD - Chest Single View - 07/26/2022 10:42 am CLINICAL HISTORY: picc placement COMPARISON: Chest Single View dated 04/18/2021 FINDINGS: Portable chest was obtained following placement of a left upper extremity PICC line. The c atheter tip projects over the SVC.
[2022-07-26] MEDS: VANCOMYCIN 1.75 GM in NA CHLORIDE 0.9% 500 ML IVPB SCH ×2 (10:59→20:35)
--- NOTE | 2022-07-26 11:19 | P.PN ---
Subjective Date of Service: 07/26/22 Chief Complaint: Osteomyelitis Left Heel Subjective: Improving (Patient is improving status post I&D of left heel osteomyelitis complaining of shortness of breath recently diagnosed with sleep apnea able to lie down in supine position former smoker currently vaping) Review of Systems Respiratory: Cough, Shortness of Breath Musculoskeletal: Foot Pain Physical Examination - Vital Signs Temperature: 98.9 F Blood Pressure: 176/76 Pulse: 101 Respirations: 18 Pulse Ox (%): 93 - Physical Exam General: Alert, Oriented x3, Mild distress Respiratory: Clear to auscultation bilaterally, Diminished Cardiovascular: No edema, Regular rate/rhythm, Normal S1 S2 Gastrointestinal: Normal bowel sounds, Soft and benign Assessment And Plan - Current Problems (Diagnosis) (1) Osteomyelitis of foot, left, acute Current Visit: Yes Status: Acute Plan: Patient admitted with left foot osteomyelitis s/p wound debridement by Dr. Ledesma on IV antibiotic labs reviewed mildly hypokalemic and anemic continue with cefepime and vancomycin vital signs oxygenation satisfactory blood pressure elevated increase spironolactone (2) Shortness of breath Current Visit: Yes Status: Acute Plan: Presumed COPD former smoker currently vaping add Dulera (3) Sleep apnea Current Visit: Yes Status: Acute Plan: History of recently diagnosed sleep apnea trial of CPAP patient unable to lie in supine position Qualifiers: Primary sleep apnea of type: unspecified type
[2022-07-26] MEDS: METFORMIN HCL 850 MG TAB PO SCH ×2 (13:16→20:36)
[2022-07-26] MEDS: DULERA 200/5 (MOMETASONE/FORMOTEROL) INHALER IH SCH ×2 (13:20→20:37)
--- NOTE | 2022-07-26 17:30 | EKG ---
Test Date: 2022-07-23 Test Time: 17:24:44 Director Call: FELIX MEASUREMENT RESULTS: Intervals: Rate: 92 MS: 172 QRSD: 98 QT: 354 QTc: 437 [place]: P: 61 MS: 172 QRS: 39 T: 69 INTERPRETIVE STATEMENTS: Normal sinus rhythm Nonspecific T wave abnormality Abnormal ECG Compared to ECG 04/18/2021 22:42:52 T-wave abnormality now present Electronically Signed On 07-26-22 17:26:57 DIRECTOR MOTION PICTURE by Hola Cabrera
[2022-07-26] MEDS: SPIRONOLACTONE 25 MG TABLET PO SCH (20:36)
[2022-07-26] MEDS ORDERED: POTASSIUM CL SA 10 MEQ TAB PO ONE (23:04)
[2022-07-27] MEDS: CEFEPIME 2 GM in NA CHLORIDE 0.9% 100 ML IV SCH ×3 (00:50→21:45)
[2022-07-27] MEDS: HYDROCODONE/APAP 7.5/325 MG TAB PO PRN ×3 (04:16→17:14)
[2022-07-27 06:06] LABS: Potassium 3.3 mmol/L (3.5-5.1)
[2022-07-27] MEDS: COLLAGENASE 30 GM OINTMENT TOP SCH (09:00)
[2022-07-27] MEDS: DULERA 200/5 (MOMETASONE/FORMOTEROL) INHALER IH SCH ×2 (09:00→21:31)
[2022-07-27] MEDS: HOME MED 1 EA UNK (Empagliflozin [Jardiance] 10 MG Tablet) PO SCH (09:00)
[2022-07-27] MEDS ORDERED: POTASSIUM 25 MEQ EFFERV TAB PO ONE (09:00)
[2022-07-27] MEDS: INSULIN -REGULAR HUMAN 50 UNIT/0.5 ML ML SQ SCH ×4 (09:20→21:00)
[2022-07-27] MEDS: VENLAFAXINE HCL XR 75 MG CAP PO SCH (09:22)
[2022-07-27] MEDS: GLIPIZIDE S.A. 5 MG TAB PO SCH (09:22)
[2022-07-27] MEDS: GABAPENTIN 300 MG CAP PO SCH ×4 (09:23→21:30)
[2022-07-27] MEDS: SPIRONOLACTONE 25 MG TABLET PO SCH ×2 (09:23→21:30)
[2022-07-27] MEDS: METFORMIN HCL 850 MG TAB PO SCH ×3 (09:24→21:30)
[2022-07-27] MEDS: NIFEDIPINE XL 30 MG TABLET PO SCH ×2 (09:24→21:30)
[2022-07-27] MEDS: VANCOMYCIN 1.75 GM in NA CHLORIDE 0.9% 500 ML IVPB SCH (09:33)
--- NOTE | 2022-07-27 09:48 | P.PN ---
Subjective Date of Service: 07/27/22 Chief Complaint: Osteomyelitis Left Heel Subjective: Improving (Doing better shortness of breath is improved pain is under control) Review of Systems General: Weakness Respiratory: Shortness of Breath Physical Examination - Vital Signs Temperature: 99.8 F Blood Pressure: 145/67 Pulse: 85 Respirations: 18 Pulse Ox (%): 93 - Physical Exam General: Alert, In no apparent distress, Oriented x3 Neck: Supple Cardiovascular: No edema, Regular rate/rhythm, Normal S1 S2 Assessment And Plan - Current Problems (Diagnosis) (1) Osteomyelitis of foot, left, acute Current Visit: Yes Status: Acute Plan: Patient to be discharged on 6 weeks of cefepime and vancomycin he already has a PICC line (2) Shortness of breath Current Visit: Yes Status: Acute Plan: Shortness of breath is improved with the inhaler (3) Sleep apnea Current Visit: Yes Status: Acute Plan: Refused BiPAP complaining of claustrophobia Qualifiers: Primary sleep apnea of type: unspecified type
[2022-07-28] MEDS: HYDROCODONE/APAP 7.5/325 MG TAB PO PRN ×3 (05:04→17:49)
[2022-07-28] MEDS: VANCOMYCIN 2 GM in NA CHLORIDE 0.9% 500 ML IVPB SCH ×2 (05:04→22:30)
[2022-07-28] MEDS: INSULIN -REGULAR HUMAN 50 UNIT/0.5 ML ML SQ SCH ×4 (07:30→21:00)
[2022-07-28] MEDS: CEFEPIME 2 GM in NA CHLORIDE 0.9% 100 ML IV SCH ×2 (08:54→21:04)
[2022-07-28] MEDS: METFORMIN HCL 850 MG TAB PO SCH ×3 (08:55→21:03)
[2022-07-28] MEDS: VENLAFAXINE HCL XR 75 MG CAP PO SCH (08:55)
[2022-07-28] MEDS: SPIRONOLACTONE 25 MG TABLET PO SCH ×2 (08:55→21:03)
[2022-07-28] MEDS: GLIPIZIDE S.A. 5 MG TAB PO SCH (08:55)
[2022-07-28] MEDS: GABAPENTIN 300 MG CAP PO SCH ×4 (08:55→21:03)
[2022-07-28] MEDS: DULERA 200/5 (MOMETASONE/FORMOTEROL) INHALER IH SCH ×2 (08:55→21:03)
[2022-07-28] MEDS: HOME MED 1 EA UNK (Empagliflozin [Jardiance] 10 MG Tablet) PO SCH (08:56)
[2022-07-28] MEDS: NIFEDIPINE XL 30 MG TABLET PO SCH ×2 (08:56→21:13)
[2022-07-28] MEDS: COLLAGENASE 30 GM OINTMENT TOP SCH (08:57)
--- NOTE | 2022-07-28 11:06 | P.PN ---
Subjective Date of Service: 07/28/22 Chief Complaint: Osteomyelitis Left Heel Subjective: Improving (Improving doing well pain is decreased patient has a PICC line getting IV antibiotic) Review of Systems Unremarkable Physical Examination - Vital Signs Temperature: 98.6 F Blood Pressure: 168/77 Pulse: 78 Respirations: 18 Pulse Ox (%): 93 - Physical Exam General: Alert, In no apparent distress, Oriented x3 Cardiovascular: No edema, Normal S1 S2 Assessment And Plan - Current Problems (Diagnosis) (1) Osteomyelitis of foot, left, acute Current Visit: Yes Status: Acute Plan: Patient is doing well to be arranged to have IV antibiotics at home and has a PICC line discussed with infectious disease to discuss with general surgery regarding further debridement (2) Shortness of breath Current Visit: Yes Status: Acute Plan: Shortness of breath is improved with the inhaler, To be DC on MDI (3) Sleep apnea Current Visit: Yes Status: Acute Plan: Refused BiPAP complaining of claustrophobia Qualifiers: Primary sleep apnea of type: unspecified type
[2022-07-28 11:07] LABS: Potassium 3.3 mmol/L (3.5-5.1)
[2022-07-28] MEDS ORDERED: POTASSIUM CL SA 10 MEQ TAB PO ONE (11:13)
--- NOTE | 2022-07-28 12:27 | PN ---
Subjective: The patient is sitting on wheelchair. Denies any chest pain, abdominal pain, constipati on, or diarrhea. Objective: Vital Signs: Temperature 98, pulse 78, respirations 18, blood pressure 168/77. Lungs: Basal crackles. Heart: S1, S2. Regular. Abdomen: Soft, nontender. Bowel sounds present. Extremity: Trace edema. Laboratory Data: Shows WBC 8.8, hemoglobin 9.1, platelets 371. Chemistry shows BUN of 8, creatinine 0.5. Alcohol level of 2.3. Assessment And Plan: Left heel wound noted with foul odor, infected left heel wound unstageable. Re commend to have another debridement. So, I spoke to the surgical team, will be evaluated by them radha georgetteow. Continue IV antibiotic total of 6 weeks, vancomycin and cefepime. Monitor kidney and liver f unction closely while the patient on antibiotic. Moderate protein-calorie malnourishment, diabetic n europathy, anemia of chronic disease. We will follow the patient as needed. NF/MODL Voice ID: [id number] Report ID: [id number]
--- NOTE | 2022-07-28 15:49 | PN ---
Date of Progress Note: 07/28/2022 Reason For Admission: Status post debridement of the left heel diabetic and necrotic ulcer. Subjective: The patient is doing better. I discussed the case today with Dr. Ann. He asked us t o evaluate the wound again. When the wound was evaluated and even with imaging, it shows improvement in the area that is part of the surgical procedure. Plan: From our standpoint is just to [facility] for a debridement and also to trying to provide proper care, so she can heal from that area. She was explained the import ance of diabetes control, the importance of offloading, losing weight, and diet. HM/MODL Voice ID: [id number] Report ID: [id number]
--- NOTE | 2022-07-29 00:36 | P.PN ---
Subjective Date of Service: 07/29/22 Chief Complaint: Osteomyelitis Left Heel Subjective: Improving (Overall improving although she is complaing of mild dyspnea, worse with exertion.) Review of Systems 10-point ROS is otherwise unremarkable Respiratory: Shortness of Breath Musculoskeletal: Foot Pain Physical Examination - Vital Signs Temperature: 97.1 F Blood Pressure: 162/70 Pulse: 80 Respirations: 19 Pulse Ox (%): 94 - Physical Exam General: Alert, In no apparent distress, Oriented x3, Obese HEENT: Atraumatic, PERRLA, EOMI Neck: Supple, JVD not distended Respiratory: Diminished Cardiovascular: Regular rate/rhythm, Normal S1 S2 Capillary refill: <2 Seconds Gastrointestinal: Normal bowel sounds, No tenderness Musculoskeletal: No tenderness Integumentary: No rashes Neurological: Normal speech, Normal tone, Normal affect - Studies Microbiology Data (last 24 hrs): 07/23/22 18:30 Blood - Blood Aerobic Blood Culture - Final No growth in 5 days. 07/23/22 18:30 Blood - Blood Anaerobic Blood Culture - Final No growth in 5 days. 07/23/22 18:15 Blood - Blood Aerobic Blood Culture - Final No growth in 5 days. 07/23/22 18:15 Blood - Blood Anaerobic Blood Culture - Final No growth in 5 days. Medications List Reviewed: Yes Assessment And Plan - Plan Assessment: Suspected left heel osteomyelitis secondary to diabetic foot wound Diabetes mellitus type 2insulin-dependent Hypertension COPD Plan: Suspected left heel osteomyelitis secondary to diabetic foot wound: MRI concern ing for early/progression to osteomyelitis, ID recommends 6 weeks of IV ABX, PICC in place, arranging for HH with abx. Surgery evaluated wound yesterday, recommended further wound debridement weekly at wound healing center. Diabetes mellitus type 2insulin-dependent: ACHS Accu-Chek, sliding scale insulin. Hypertension: Home meds continued. COPD: As needed nebulizer treatments. Pt C/O dyspnea, started on MDI by pulmonolgy. Will obtain CXR in AM. DVT PPX:SCD Code status:Full code Discharge Plan: Home Plan to discharge in: 48 Hours - Code Status/Comfort Care Code Status Assessed: Yes (Full code) Critical Care: No Time Spent Managing PTS Care (In Minutes): 30
[2022-07-29] MEDS: HYDROCODONE/APAP 7.5/325 MG TAB PO PRN ×3 (05:46→18:17)
[2022-07-29 06:21] LABS: Potassium 3.2 mmol/L (3.5-5.1)
[2022-07-29] MEDS ORDERED: POTASSIUM CL SA 10 MEQ TAB PO ONE (06:34)
[2022-07-29] MEDS: INSULIN -REGULAR HUMAN 50 UNIT/0.5 ML ML SQ SCH ×4 (07:30→21:00)
[2022-07-29] MEDS ORDERED: NA CHLORIDE 0.9% 100 ML ONE (07:34)
[2022-07-29] MEDS ORDERED: CEFEPIME 2 GM VIAL ONE (07:36)
[2022-07-29] MEDS: DULERA 200/5 (MOMETASONE/FORMOTEROL) INHALER IH SCH ×2 (08:28→21:00)
[2022-07-29] MEDS: SPIRONOLACTONE 25 MG TABLET PO SCH ×2 (08:29→22:12)
[2022-07-29] MEDS: VENLAFAXINE HCL XR 75 MG CAP PO SCH (08:29)
[2022-07-29] MEDS: CEFEPIME 2 GM in NA CHLORIDE 0.9% 100 ML IV SCH ×2 (08:29→22:13)
[2022-07-29] MEDS: METFORMIN HCL 850 MG TAB PO SCH ×3 (08:30→22:13)
[2022-07-29] MEDS: GABAPENTIN 300 MG CAP PO SCH ×4 (08:30→22:13)
[2022-07-29] MEDS: GLIPIZIDE S.A. 5 MG TAB PO SCH (08:30)
[2022-07-29] MEDS: COLLAGENASE 30 GM OINTMENT TOP SCH (08:32)
[2022-07-29] MEDS: HOME MED 1 EA UNK (Empagliflozin [Jardiance] 10 MG Tablet) PO SCH (08:32)
[2022-07-29] MEDS ORDERED: QUINAPRIL HCL 40 MG PO SCH (09:00)
--- NOTE | 2022-07-29 09:15 | RAD REPORT ---
EXAM DESCRIPTION: RAD - Chest Single View - 07/29/2022 6:55 am CLINICAL HISTORY: dyspnea Chest pain. COMPARISON: Chest Single View dated 07/26/2022; Chest Single View dated 04/18/2021 FINDINGS: Portable technique limits examination quality. Bilateral pulmonary opacities are noted, slightly progressive since 07/26/2022 study. The heart is mi ldly enlarged in size. Left-sided PICC line has tip in the SVC.
[2022-07-29] MEDS: lisinopriL 20 MG TAB PO SCH (09:16)
[2022-07-29] MEDS: NIFEDIPINE XL 30 MG TABLET PO SCH ×2 (09:16→22:12)
--- NOTE | 2022-07-29 13:22 | PN ---
Subjective: Patient is lying in bed. No new acute events. Talking to the by the bedside. Objective: Vital Signs: Temperature 98.9, pulse 97, respirations 18, blood pressure 158/70. Lungs: Basal crackles. Heart: S1, S2. Regular. Abdomen: Soft, nontender. Bowel sounds present. Extremities: Left heel wound noted. Laboratory Data: Shows no new CBC available. Chemistry shows BUN of 8, creatinine 0.5. Assessment And Plan: Left heel osteomyelitis and stage IV decubitus ulcer. Continue cefepime and va ncomycin for 6 weeks. Medihoney with alginate to the wound site. Follow up with surgical team. We will follow as needed. Monitor for signs of infection. Anemia of chronic disease. Leukocytosis has resolved. Moderate protein-calorie malnourishment. We will follow the patient as needed. NF/MODL Voice ID: [id number] Report ID: [id number]
--- NOTE | 2022-07-29 13:44 | EKG ---
Test Date: 2022-07-25 Test Time: 23:36:43 Project/Production Manager Imaging: 15 MEASUREMENT RESULTS: Intervals: Rate: 85 GA: 174 QRSD: 92 QT: 384 QTc: 456 [place]: P: 72 GA: 174 QRS: 32 T: 88 INTERPRETIVE STATEMENTS: Normal sinus rhythm Nonspecific T wave abnormality Abnormal ECG Compared to ECG 07/23/2022 17:24:44 No significant changes Electronically Signed On 07-29-22 13:39:59 RECORDS TECH by Hola Cabrera
[2022-07-29] MEDS: VANCOMYCIN 2 GM in NA CHLORIDE 0.9% 500 ML IVPB SCH (16:28)
[2022-07-29] MEDS ORDERED: POTASSIUM 25 MEQ EFFERV TAB PO ONE (17:00)
[2022-07-30] MEDS: HYDROCODONE/APAP 5/325 MG TAB PO PRN ×2 (02:43→08:18)
[2022-07-30] MEDS: INSULIN -REGULAR HUMAN 50 UNIT/0.5 ML ML SQ SCH ×2 (07:30→11:30)
[2022-07-30] MEDS ORDERED: POTASSIUM 25 MEQ EFFERV TAB PO ONE (07:35)
[2022-07-30] MEDS: METFORMIN HCL 850 MG TAB PO SCH (08:18)
[2022-07-30] MEDS: GLIPIZIDE S.A. 5 MG TAB PO SCH (08:19)
[2022-07-30] MEDS: GABAPENTIN 300 MG CAP PO SCH ×2 (08:19→12:58)
[2022-07-30] MEDS: CEFEPIME 2 GM in NA CHLORIDE 0.9% 100 ML IV SCH (08:19)
[2022-07-30] MEDS: VENLAFAXINE HCL XR 75 MG CAP PO SCH (08:19)
[2022-07-30] MEDS: SPIRONOLACTONE 25 MG TABLET PO SCH (08:19)
[2022-07-30] MEDS: DULERA 200/5 (MOMETASONE/FORMOTEROL) INHALER IH SCH (08:21)
[2022-07-30] MEDS: HOME MED 1 EA UNK (Empagliflozin [Jardiance] 10 MG Tablet) PO SCH (08:21)
[2022-07-30] MEDS: COLLAGENASE 30 GM OINTMENT TOP SCH (08:22)
[2022-07-30] MEDS: NIFEDIPINE XL 30 MG TABLET PO SCH (08:22)
[2022-07-30] MEDS: lisinopriL 20 MG TAB PO SCH (08:22)
[2022-07-30] MEDS ORDERED: POTASSIUM CL SA 10 MEQ TAB PO ONE (09:00)
--- NOTE | 2022-07-30 09:21 | P.DS ---
Admission Date: 07/23/22 Discharge Date: 07/30/22 Disposition: ROUTINE DISCHARGE Discharge Condition: FAIR Reason for Admission: Osteomyelitis Left Heel Brief History of Present Illness: 62-year-old female history of COPD, insulin-dependent diabetes, hypertension, depression/anxiety presents emergency department for wound to her left heel. She reported 2 to 3 weeks ago she had an area of dry skin present to her left heel which she began picking and accidentally peeled off a layer of what appeared to be healthy tissue, since then she has been following with surgeryDr. Ledesma for wound care. [facility]. She was evaluated in the emergency department her labs were significant for leukocytosis with white blood cell count of 11.6 and low 9.8 hematocrit 30.1 MCV 76.3 potassium 3.4 x-ray of the left foot was obtained which revealed posterior soft tissue swelling, cortical irregularity involving the posterior calcaneus which may indicate osteomyelitis and should be correlated clinically. Osteoporosis also present with calcaneal spurs. Patient was given broad-spectrum antibiotics including vancomycin/cefepime and admitted for further management. Hospital Course: Diagnosis Left heel osteomyelitis, secondary to diabetic foot wound Diabetes mellitus type 2insulin-dependent HTN COPD Patient was admitted to the medical floor and treated with broad-spectrum antibiotics-IV vancomycin and cefepime. MRI of the foot done showed equivocal findings. Patient seen in consultation by general surgery Dr. Ledesma who performed sharp knife debridement. Also seen by infectious disease who recommended 6 weeks of IV antibiotics. PICC line was placed for outpatient antibiotics. She reported episodes of diarrhea. Stool for C. difficile checked and the result is negative. The diarrhea frequency has significantly decreased compared to yesterday. Patient deemed clinically stable for discharge. She was normotensive this morning so her antihypertensives were held. Patient advised to take her BP before she takes her antihypertensives. She is discharged with IV cefepime and vancomycin to continues 6 weeks of treatment. Vital Signs/Physical Exam: Temp Pulse Resp BP Pulse Ox 97.5 F 78 18 103/57 L 95 07/30/22 04:00 07/30/22 08:22 07/30/22 08:18 07/30/22 08:22 07/30/22 08:18 General: Alert, In no apparent distress, Obese HEENT: Mucous membr. moist/pink Neck: JVD not distended Respiratory: Clear to auscultation bilaterally, Normal air movement Cardiovascular: Regular rate/rhythm, Normal S1 S2 Gastrointestinal: Soft and benign, Non-distended Neurological: Normal strength at 5/5 x4 extr Laboratory Data at Discharge: WBC 8.80 K/uL (4.3-10.9) 07/26/22 05:08 Hgb 9.1 g/dL (12.0-15.0) L 07/26/22 05:08 Hct 28.2 % (36.0-45.0) L 07/26/22 05:08 Plt Count 371 K/uL (152-406) 07/26/22 05:08 PT 11.5 SECONDS (9.5-12.5) 07/23/22 18:15 INR 1.05 07/23/22 18:15 APTT 31.9 SECONDS (24.3-36.9) 07/23/22 18:15 Sodium 141 mmol/L (136-145) 07/29/22 04:50 Potassium 3.5 mmol/L (3.5-5.1) 07/29/22 22:22 BUN 8 mg/dL (7-18) 07/29/22 04:50 Creatinine 0.50 mg/dL (0.55-1.02) L 07/29/22 04:50 Glucose 99 mg/dL (74-106) 07/29/22 04:50 Total Bilirubin 0.3 mg/dL (0.2-1.0) 07/26/22 05:08 AST 22 U/L (15-37) 07/26/22 05:08 ALT 27 U/L (13-56) 07/26/22 05:08 Alkaline Phosphatase 60 U/L (45-117) 07/26/22 05:08 Home Medications: Albuterol Sulfate [Proair Digihaler] 2 puff IH Q6H PRN 07/24/22 Aspirin 1 cap PO DAILY 07/24/22 Chlorhexidine 0.12% [Periogard*] 1 dose PO BID 07/24/22 Chlorhexidine 4% [Betasept*] 1 radha TOP DAILY 07/24/22 Diclofenac Sodium [Voltaren] 1 tab PO BID 07/24/22 Empagliflozin [Jardiance] 1 tab PO DAILY 07/24/22 Fish Oil/Dha/Epa [Fish Oil 1,200 mg Fish Oil] 1 tab PO DAILY 07/24/22 Furosemide 1 tab PO DAILY 07/24/22 Gabapentin 1 tab PO QID 07/24/22 Glipizide [Glipizide Xl] 1 tab PO DAILY 07/24/22 Hydrocodone Bit/Acetaminophen [Hydrocodon-Acetaminoph 7.5-325] 1 tab PO Q6H PRN 07/24/22 Loxitane 1 tab PO DAILY 07/24/22 Metformin HCl 1 tab PO TID 07/24/22 Methylcellulose (with Sugar) [Citrucel Powder] 1 dose PO DAILY 07/24/22 Mupirocin Cream [Bactroban 2% Cream*] 1 dose TOP TID 07/24/22 NIFEdipine [Nifedipine ER] 1 tab PO BID 07/24/22 Quinapril HCl 1 tab PO DAILY 07/24/22 Spironolactone 1 tab PO DAILY 07/24/22 Venlafaxine HCl [Venlafaxine HCl ER] 1 tab PO DAILY 07/24/22 clonazePAM [Klonopin] 1 mg PO TID 07/24/22 Collagenase [Santyl Ointment*] 1 appl TOP DAILY #1 tube 07/30/22 New Medications: Collagenase [Santyl Ointment*] 1 appl TOP DAILY #1 tube Followup: Minh Ledesma MD [ACTIVE - CAN ADMIT] - 1 Week (call to schedule an appointment) Jefferson Witt MD [Primary Care Provider] - 1-2 Weeks (call to schedule an appointment) Time spent managing pt's care (in minutes): 35
[2022-07-30] MEDS: VANCOMYCIN 2 GM in NA CHLORIDE 0.9% 500 ML IVPB SCH (09:30)
[2022-07-30 10:14] VITALS: O2SAT 95
--- NOTE | 2022-07-30 11:21 | P.PN ---
Subjective Date of Service: 07/30/22 Chief Complaint: Osteomyelitis Left Heel Subjective: No new changes, Improving Patient laying bed no new complains, by the bedside Physical Examination - Vital Signs Temperature: 99.3 F Blood Pressure: 103/57 Pulse: 78 Respirations: 18 Pulse Ox (%): 95 - Physical Exam General: Alert, Oriented x3 HEENT: Atraumatic, Normocephalic Neck: Supple, JVD not distended Respiratory: Crackles/rales Cardiovascular: No edema, Normal S1 S2 Gastrointestinal: Normal bowel sounds, Soft and benign, Non-distended Musculoskeletal: No swelling, No contractures Integumentary: Skin breakdown, Skin lesion, Diabetic ulcer Neurological: Normal tone, Cranial nerves 3-12 intact Lymphatics: No axilla or inguinal lymphadenopathy Rectal: Deferred - Studies Laboratory Last Values WBC 11.60 K/uL (4.3-10.9) H 07/23/22 18:15 RBC 3.95 M/uL (3.86-4.86) 07/23/22 18:15 Hgb 9.8 g/dL (12.0-15.0) L 07/23/22 18:15 Hct 30.1 % (36.0-45.0) L 07/23/22 18:15 MCV 76.3 fL (80-100) L 07/23/22 18:15 MCH 24.9 pg (27.0-35.0) L 07/23/22 18:15 MCHC 32.7 g/dL (32.0-36.0) 07/23/22 18:15 RDW 15.6 % (12.1-15.2) H 07/23/22 18:15 Plt Count 331 K/uL (152-406) 07/23/22 18:15 MPV 8.2 fL (7.6-11.3) 07/23/22 18:15 Neutrophils % 70.6 % (41.7-73.7) 07/23/22 18:15 Lymphocytes % 15.8 % (15.3-44.8) 07/23/22 18:15 Monocytes % 10.1 % (3.3-12.3) 07/23/22 18:15 Eosinophils % 2.7 % (0-4.4) 07/23/22 18:15 Basophils % 0.8 % (0-1.3) 07/23/22 18:15 Absolute Neutrophils 8.2 K/uL (1.8-8.0) H 07/23/22 18:15 Absolute Lymphocytes 1.8 K/uL (0.7-4.9) 07/23/22 18:15 Absolute Monocytes 1.2 K/uL (0.1-1.3) 07/23/22 18:15 Absolute Eosinophils 0.3 K/uL (0-0.5) 07/23/22 18:15 Absolute Basophils 0.1 K/uL (0-0.5) 07/23/22 18:15 PT 11.5 SECONDS (9.5-12.5) 07/23/22 18:15 INR 1.05 07/23/22 18:15 APTT 31.9 SECONDS (24.3-36.9) 07/23/22 18:15 Sodium 140 mmol/L (136-145) 07/23/22 18:15 Potassium 3.4 mmol/L (3.5-5.1) L 07/23/22 18:15 Chloride 108 mmol/L (98-107) H 07/23/22 18:15 Carbon Dioxide 27 mmol/L (21-32) 07/23/22 18:15 Anion Gap 8.4 mEq/L (5.0-15.0) 07/23/22 18:15 BUN 14 mg/dL (7-18) 07/23/22 18:15 Creatinine 0.62 mg/dL (0.55-1.02) 07/23/22 18:15 Est GFR (CKD-EPI) 101 ml/min (=/>90) 07/23/22 18:15 Glucose 107 mg/dL (74-106) H 07/23/22 18:15 Lactic Acid 1.9 mmol/L (0.4-2.0) 07/23/22 18:15 Calcium 9.0 mg/dL (8.5-10.1) 07/23/22 18:15 Total Bilirubin 0.3 mg/dL (0.2-1.0) 07/23/22 18:15 AST 14 U/L (15-37) L 07/23/22 18:15 ALT 23 U/L (13-56) 07/23/22 18:15 Alkaline Phosphatase 79 U/L (45-117) 07/23/22 18:15 Serum Total Protein 7.1 g/dL (6.4-8.2) 07/23/22 18:15 Albumin 2.7 g/dL (3.4-5.0) L 07/23/22 18:15 Globulin 4.4 g/dL (2.3-3.5) H 07/23/22 18:15 Albumin/Globulin Ratio 0.6 (1.1-1.8) L 07/23/22 18:15 SARS-CoV-2 Ag (Rapid) Negative (Negative) 07/23/22 18:55 Medications List Reviewed: Yes Assessment And Plan - Plan Left heel osteomyelitis and stage IV decubitus ulcer. Continue cefepime and vancomycin for 6 weeks. Medihoney with alginate to the wound site. Follow up with surgical team. Monitor for signs of infection. Anemia of chronic disease. Leukocytosis has resolved. Moderate protein-calorie malnourishment. We will follow the patient as needed
[2022-07-30 12:04] VITALS: BP 168/71; TEMP 98.8
[2022-07-30 12:05] LABS: C.diff Antigen/Toxin Ag neg : Tox neg (NEG : NEG)
[2022-07-30] MEDS ORDERED: LACTOBACILLUS/ACIDOPHILUS TAB PO SCH (21:00)
== END 2022-07-30 13:19 | disposition home health service (06) | DRG 622 ==
LOC: ER 16:02 → ERHOLD 19:52 → 2ND 21:09 → 4TH 07-26 19:57
PROVIDERS: ADMIT Hospitalist; ATTEND Internal Medicine
PROC: 0JBR0ZZ Excision of Left Foot Subcutaneous Tissue and Fascia, Open Approach (ICD-10-PCS; principal; 2022-07-25 10:00)
PROC: 02HV33Z Insertion of Infusion Device into Superior Vena Cava, Percutaneous Approach (ICD-10-PCS; 2022-07-26)
PROC: 5A09457 Assistance with Respiratory Ventilation, 24-96 Consecutive Hours, Continuous Positive Airway Pressure (ICD-10-PCS; 2022-07-26)
DX: E11.69 Type 2 diabetes mellitus with other specified complication (principal); L89.624 Pressure ulcer of left heel, stage 4; E11.52 Type 2 diabetes mellitus with diabetic peripheral angiopathy with gangrene; N20.1 Calculus of ureter; N13.30 Unspecified hydronephrosis; Z68.41 Body mass index [BMI] 40.0-44.9, adult; E44.0 Moderate protein-calorie malnutrition; M86.172 Other acute osteomyelitis, left ankle and foot; L03.116 Cellulitis of left lower limb; L02.612 Cutaneous abscess of left foot; L97.429 Non-pressure chronic ulcer of left heel and midfoot with unspecified severity; K57.92 Diverticulitis of intestine, part unspecified, without perforation or abscess without bleeding; E11.628 Type 2 diabetes mellitus with other skin complications; E11.40 Type 2 diabetes mellitus with diabetic neuropathy, unspecified; E11.621 Type 2 diabetes mellitus with foot ulcer; D63.8 Anemia in other chronic diseases classified elsewhere; E66.01 Morbid (severe) obesity due to excess calories; I10 Essential (primary) hypertension; K21.9 Gastro-esophageal reflux disease without esophagitis; E87.6 Hypokalemia; G47.30 Sleep apnea, unspecified; J44.9 Chronic obstructive pulmonary disease, unspecified; M81.0 Age-related osteoporosis without current pathological fracture; F17.290 Nicotine dependence, other tobacco product, uncomplicated; Z88.1 Allergy status to other antibiotic agents; Z79.4 Long term (current) use of insulin; Z90.49 Acquired absence of other specified parts of digestive tract; Z79.82 Long term (current) use of aspirin; Z79.84 Long term (current) use of oral hypoglycemic drugs; Z90.710 Acquired absence of both cervix and uterus; Z20.822 Contact with and (suspected) exposure to COVID-19
CPT/HCPCS: 36415; 36569; 71045; 80048; 80053; 80202; 81001; 82947; 83036; 83605; 83880; 84132; 84484; 85025; 85610; 85730; 87040; 87070; 87075; 87205; 87324; 87811; 88304; 93005; 96374; 99285; J0692; J1170; J1815; J2001; J2250; J2270; J2405; J2704; J3010; J3370; J3535; J3590; J7030; J7040; J7799

== ENCOUNTER 2022-08-03 13:17 | Emergency (ER) | payer OTHER ==
--- OUTSIDE RECORDS SUMMARY | 2022-08-03 13:44 | XMS REPORT | Continuity of Care Document ---
:1960 Author Organization [facility] t Address [address] [place] [address] Care Team Providers Name Role Phone Jefferson Witt MD Primary Care Physician BISI CARDOSO Attending Clinician Unavailable GIOVANY ANTOINE Attending Clinician Unavailable RACHELL CHENG Attending Clinician Unavailable RACHELL CHENG Attending Clinician Unavailable JEFFERSON WITT Attending Clinician Unavailable Faustina CHONG, Oleg Leach Attending Clinician Unavailable Jefferson Witt MD Attending Clinician Marylou Borrego Attending Clinician Claudia Recinos Attending Clinician JESUS SPAIN Attending Clinician Unavailable Jesus Spain MD Attending Clinician Rachell Cheng MD Attending Clinician ROSETTE CONTRERAS Attending Clinician Unavailable Rosette Markham Attending Clinician [facility] Sleep Lab Attending Clinician Unavailable Doctor Unassigned, [place] Attending Clinician Unavailable 2, [facility] Attending Clinician Unavailable CLAUDIA PORTER Attending Clinician Unavailable DAYLIN MOJICA Attending Clinician Unavailable Daylin Mojica NP Attending Clinician [facility] Attending Clinician UnavailGiovany Moseley MD Attending Clinician ARMINDA VEGA Attending Clinician Unavailable Noemi Christian Attending Clinician Andrea Morrow MD Attending Clinician NOEMI WAITE Attending Clinician Unavailable DILAN LOVE Attending Clinician Unavailable Dilan Love MD Attending Clinician Lab, Ang - Db Attending Clinician Unavailable MARYLOU GAMINO Attending Clinician Unavailable PRAVEEN SAGE Attending Clinician Unavailable Praveen Shipman Attending Clinician Audrey OCONNOR, Brian K.H. Attending Clinician BRIAN VENTURA K.H. Attending Clinician Unavailable Only, [facility] Test Attending Clinician Unavailable Mike OCONNOR, Maryam Attending Clinician MARYAM MCKEON Attending Clinician Unavailable ROBBIE CORONADO Attending Clinician Unavailable Nurse, [facility] Pob Immunization Attending Clinician Unavailable Severo Lara DO Attending Clinician SEVERO LARA Attending Clinician Unavailable Linda CHONG, Elizabeth Ballesteros Attending Clinician Unavailable CHERYLE PERREA Attending Clinician Unavailable Trever OCONNOR, Cheryle Attending Clinician Ana Riddle MD Attending Clinician Doron Mayen Attending Clinician DORON WEINSTEIN Attending Clinician Unavailable Gordon LAURA Josse Attending Clinician JOSSE LEYVA Attending Clinician Unavailable Provider, [facility] Attending Clinician Unavailable Romi Fernandez Attending Clinician Lia CHONG, Araceli Black Attending Clinician Unavailable JAYASHREE MULLINS Attending Clinician Unavailable Jayashree Mullins DO Attending Clinician JORGE LUIS L[address] Attending Clinician Unavailable Janae OCONNOR, Bisi Ordaz Attending Clinician Guy Mcclellan RN, Yaneli Attending Clinician Unavailable , [facility] Echo Room 1 - Attending Clinician Unavailable Robbie Coronado MD Attending Clinician Visit, [facility] Nurse Attending Clinician Unavailable Gramm Sandy LAURA Attending Clinician SANDY GRISSOM Attending Clinician Unavailable Lab, [facility] Fam Pob I Attending Clinician Unavailable Alana Freire RN Attending Clinician Unavailable [facility] Pob1, [facility] Attending Clinician Unavailable Dariel OCONNOR, Keila Attending Clinician KEILA DELCID Attending Clinician Unavailable Kim CHONG, Ciara Attending Clinician Unavailable BISI CARDOSO Admitting Clinician Unavailable JESUS SPAIN Admitting Clinician Unavailable JEFFERSON WITT Admitting Clinician Unavailable BRIAN VENTURA Admitting Clinician Unavailable CHERYLE PERERA Admitting Clinician Unavailable Trever OCONNOR, Cheryle Admitting Clinician Bisi Cardoso MD Admitting Clinician KEILA DELCID Admitting Clinician Unavailable Payers Payer Name Policy Type Policy Number Effective Date Expiration Date S leon [employer] MEDICARE [id number] 2019 00:00:00 MEDICARE PART A [id number] 2021 2021 \\T\\ B 00:00:00 00:00:00 [employer] [id number] 2021 2021 [place] 00:00:00 00:00:00 Problems Condition Condition Condition Status Onset Resolution Last Treating Co mments Source Name Details Category Date Date Treatment Clinician Date VERNON VERNON Disease Active 2021-08 Univers (obstructi (obstructi 1-23 it y of ve sleep ve sleep 00:00: [place] apnea) apnea) 00 Medical Branch Chest pain Chest pain Disease Active 2020-08 U nivers 0-29 ity of 00:00: [place] 00 Medical Branch Morbid Morbid Disease Active 2020-08 Univers obesity obesity 0-29 ity of 00:00: [place] 00 Medical Branch Chronic Chronic Disease Active [...] ity of level of level of 00:00: [place] lipase lipase 00 Medical Branch Leg edema Leg edema Disease Active 2020-08 Uni vers 0-29 ity of 00:00: [place] [facility] Calculus Calculus Disease Active 2019-08 Overview: Un justice of of 2-18 Form[place] ity of gallbladde gallbladde 00:00: g of this [place] r without r without 00 note Medi ashley cholecysti cholecysti might be Branch tis tis different without without from the obstructio obstructio original. n n Added automatic ally from request for surgery [id number] Neuropathy Neuropathy Disease Active 2019- U nivers 9-22 ity of 00:00: [place] [facility] Bronchitis Bronchitis Disease Active 2019- U nivers 4-22 ity of 00:00: [place] [facility] SOB SOB Disease Active Univers (shortness (shortness 4-22 it y of of breath[place] breath[place] Fever in Fever in Disease Active Unive rs adult adult 4-22 ity of 00:00: [place] [facility] Tobacco Tobacco Disease Active Univers dependence dependence 4-22 it y of 00:00: [place] [facility] Obesity Obesity Disease Active Univers 9-21 ity of 00:00: [place] [facility] Low back Low back Disease Active Unive rs pain pain 9-21 ity of 00:00: [place] [facility] Anxiety Anxiety Disease Active Univers 6-24 ity of 00:00: [place] [facility] Type 2 Type 2 Disease Active Univers diabetes diabetes 6-13 ity of mellitus mellitus 00:00: [place] [facility] Hyperlipid Hyperlipid Disease Active U nivers emia with emia with 6-13 ity of target LDL target LDL [place]:00: [place] less than less than 00 Medi [place] 100 100 Branch Essential Essential Disease Active Uni vers hypertensi hypertensi 6-13 it y of on on 00:00: [place] [facility] Right knee Right knee Disease Active U nivers pain pain 5-31 ity of 00:00: [place] [facility] Right knee Right knee Disease Active 2015- U nivers pain pain 5-31 ity of 00:00: [place] 00 Medical Branch Allergies, Adverse Reactions, Alerts Allergy Allergy Status Severity Reaction(s) Onset Inactive Treating Comm ents Source Name Type Date Date Clinician Glipizid Propensi Active Rash Rash on Unive rs e ty to 5- head, ity of adverse 00:00: back [place] [...] ity of adverse 00:00: [place] reaction 00 Medical s Branch SULFA Drug Active Rash Univers (SULFONA Class 7-13 ity of MIDE 00:00: [place] ANTIBIOT 00 Medical ICS) Branch TETRACYC Drug Active Rash Univers LINES Class 7-13 ity of 00:00: [place] 00 Medical Branch Tetracyc Propensi Active Rash Univer s lines ty to 7-13 ity of adverse 00:00: [place] reaction 00 Medical s [place] Social History Social Habit Start Date Stop Date Quantity Comments Source History of tobacco Cigarette Smoker University of use [facility] Exposure to 2022-07-09 2022-07-19 Not sure [facility] SARS-CoV-2 (event) 00:00:00 13:34:00 [facility] Alcohol intake 2022-07-16 2022-07-16 0 /d University of 00:00:00 00:00:00 [facility] Cigarettes smoked 2022-06-04 2022-06-04 Univers ity of current (pack per 00:00:00 00:00:00 ) - Reported Branch Cigarette 2022-06-04 2022-06-04 University of pack-years 00:00:00 00:00:00 [facility] Tobacco use and 2022-06-04 2022-06-04 User of Universit y of exposure 00:00:00 00:00:00 smokeless [facility] tobacco [place] Sex [birth year] At [birth year] Universit y of 00:00:00 00:00:00 [facility] Smoking Status Start Date Stop Date Source Smokes tobacco daily 2022-06-04 00:00:00 Univers ity [facility] Medications Ordered Filled Start Stop Current Ordering Indication Dosage Frequency Signature Comments Components Source Medication Medication Date Date Medication? Clinician (SIG) Name Name HYDROcodone 2021-08 Yes [id number] 1{tbl} Take 1 Un justice -acetaminop 2-28 tablet by ity of hen 7.5-325 00:00: mouth [place] mg per 00 every 6 Medical tablet (six) Branch hours as needed for Pain. Indication s: chronic pain HYDROcodone 2021-08 Yes [id number] 1{tbl} Take 1 Un justice -acetaminop 2-28 tablet by ity of hen 7.5-325 00:00: mouth [place] mg per 00 every 6 Medical tablet (six) Branch hours as needed for Pain. Indication s: chronic pain gabapentin 2021-08 Yes [id number] TAKE 1 Univers 300 mg 2-20 CAPSULE BY ity of capsule 00:00: MOUTH FOUR [place] 00 TIMES Medical DAILY Branch gabapentin 2021-08 Yes [id number] TAKE 1 Univers 300 mg 2-20 CAPSULE BY ity of capsule 00:00: [place]TH FOUR [place] TIMES Medical DAILY Branch gabapentin 2021-08 Yes [id number] TAKE 1 Univers 300 mg 2-20 CAPSULE BY ity of capsule 00:00: [place]TH [place] TIMES Medical DAILY Branch NIFEdipine 2021-08 Yes [id number] 60mg Take 1 U nivers ER 60 mg 2-19 tablet by ity of tablet 00:00: mouth in [place] the Medical morning Branch and 1 tablet in the evening. NIFEdipine 2021-08 Yes [id number] 60mg Take 1 U nivers ER 60 mg 2-19 tablet by ity of tablet 00:00: mouth in [place] the Medical morning Branch and 1 tablet in the evening. NIFEdipine 2021-08 Yes [id number] 60mg Take 1 U nivers ER 60 mg 2-19 tablet by ity of tablet 00:00: mouth in [place] [address] the Medical morning Branch and 1 tablet in the evening. NIFEdipine 2021-08 Yes [id number] 60mg Take 1 U nivers ER 60 mg 2-19 tablet by ity of tablet 00:00: mouth in [place] [address] the [facility] morning Branch and 1 tablet in the evening. NIFEdipine 2021-08 Yes [id number] 60mg Take 1 U nivers ER 60 mg 2-19 tablet by ity of tablet 00:00: mouth in [place] [address] the [facility] morning Branch and 1 tablet in the evening. ondansetron 2021-08- No 4mg 4 mg, Slow Univers (ZOFRAN 2-17 - IV Push, ity of (PF)) 20:45: 20:00 ONCE, 1 [place] injection 4 00 :00 dose, On Medi ashley mg [facility] Branch 07/19/22 at 1445, GEOVANI morpHINE (4 2021-08 No 4mg 4 mg, Slow Univers mg/mL) 2-17 07-19 IV Push, ity of injection 4 19:45: 20:00 ONCE[place] 1 [place] mg 00 :00 dose, On Medical [facility] 07/19/22 at 1345, STAT cephALEXin 2021-08 Yes [id number] 500mg Take 1 Univers (KEFLEX) 2-17 capsule by ity o f 500 mg 00:00: mouth 4 [place] capsule 00 ([facility]) Medical times [place] daily. ciprofloxac 2021-08 Yes [id number] 500mg Take 1 Univers in HCl 500 2-17 tablet by ity of mg tablet 00:00: mouth in [place] [address] the Medical morning Branch and 1 tablet in the evening. cephALEXin 2021-08 Yes [id number] 500mg Take 1 Univers (KEFLEX) 2-17 capsule by ity o f 500 mg 00:00: mouth 4 [place] capsule 00 (four) Medical times Branch daily. ciprofloxac 2021-08 Yes [id number] 500mg Take 1 Univers in HCl 500 2-17 tablet by ity of mg tablet 00:00: [place] the Medical morning Branch and 1 tablet in the evening. cephALEXin 2021-08 Yes [id number] 500mg Take 1 Univers (KEFLEX) 2-17 capsule by ity o f 500 mg 00:00: mouth 4 [place] capsule 00 (four) Medical times [place] daily. ciprofloxac 2021-08 Yes [id number] 500mg Take 1 Univers in HCl 500 2-17 tablet by ity of mg tablet 00:00: [place] the Medical morning Branch and 1 tablet in the evening. cephALEXin 2021-08 Yes [id number] 500mg Take 1 Univers (KEFLEX) 2-17 capsule by ity o f 500 mg 00:00: mouth 4 [place] capsule 00 ([facility]) Medical times [place] daily. ciprofloxac 2021-08 Yes [id number] 500mg Take 1 Univers in HCl 500 2-17 tablet by ity of mg tablet 00:00: [place] 00 the Medical morning Branch and 1 tablet in the evening. cephALEXin 2021-08 Yes [id number] 500mg Take 1 Univers (KEFLEX) 2-17 capsule by ity o f 500 mg 00:00: mouth 4 [place] capsule 00 ([facility]) [facility] times [place] daily. ciprofloxac 2021-08 Yes [id number] 500mg Take 1 Univers in HCl 500 2-17 tablet by ity of mg tablet 00:00: [place] 00 the [facility] morning Branch and 1 tablet in the evening. cephALEXin 2021-08 Yes [id number] 500mg Take 1 Univers (KEFLEX) 2-17 capsule by ity o f 500 mg 00:00: mouth 4 [place] capsule 00 ([facility]) [facility] times [place] daily. ciprofloxac 2021-08 Yes [id number] 500mg Take 1 Univers in HCl 500 2-17 tablet by ity of mg tablet 00:00: [place] 00 the [facility] morning Branch and 1 tablet in the evening. spironolact 2021-08 Yes 25mg Take 1 Univ ers one 25 mg 2-08 tablet by ity o f tablet 00:00: mouth [place] 00 every 48 Medical ([facility]) hours. furosemide 2021-08 Yes 80mg Take 1 Unive rs 80 mg 2-08 tablet by ity of tablet 00:00: mouth [place] 00 every 48 Medical ([facility]) hours. spironolact 2021-08 Yes 25mg Take 1 Univ ers one 25 mg 2-08 tablet by ity o f tablet 00:00: mouth [place] 00 every 48 Medical ([facility]) hours. furosemide 2021-08 Yes 80mg Take 1 Unive rs 80 mg 2-08 tablet by ity of tablet 00:00: mouth [place] 00 every 48 Medical ([facility]) hours. spironolact 2021-08 Yes 25mg Take 1 Univ ers one 25 mg 2-08 tablet by ity o f tablet 00:00: mouth [place] 00 every 48 Medical ([facility]) hours. furosemide 2021-1 Yes 80mg Take 1 Unive rs 80 mg 2-08 tablet by ity of tablet 00:00: mouth [place] 00 every 48 Medical ([facility]) hours. spironolact 2021-08 Yes 25mg Take 1 Univ ers one 25 mg 2-08 tablet by ity o f tablet 00:00: mouth [place] 00 every 48 Medical ([facility]) hours. furosemide 2021- Yes 80mg Take 1 Unive rs 80 mg 2-08 tablet by ity of tablet 00:00: mouth [place] 00 every 48 Medical ([facility]) hours. spironolact 2021-08 Yes 25mg Take 1 Univ ers one 25 mg 2-08 tablet by ity o f tablet 00:00: mouth [place] 00 every 48 Medical ([facility]) hours. furosemide 2021-1 Yes 80mg Take 1 Unive rs 80 mg 2-08 tablet by ity of tablet 00:00: mouth [place] 00 every 48 Medical ([facility]) hours. spironolact 2021- Yes 25mg Take 1 Univ ers one 25 mg 2-08 tablet by ity o f tablet 00:00: mouth [place] 00 every 48 Medical ([facility]) hours. furosemide 2021-1 Yes 80mg Take 1 Unive rs 80 mg 2-08 tablet by ity of tablet 00:00: mouth [place] 00 every 48 Medical ([facility]) hours. spironolact 2021- Yes 25mg Take 1 Univ ers one 25 mg 2-08 tablet by ity o f tablet 00:00: mouth [place] 00 every 48 Medical ([facility]) hours. furosemide 2021-1 Yes 80mg Take 1 Unive rs 80 mg 2-08 tablet by ity of tablet 00:00: mouth [place] 00 every 48 Medical ([facility]) hours. spironolact 2021-08 Yes 25mg Take 1 Univ ers one 25 mg 2-08 tablet by ity o f tablet 00:00: mouth [place] 00 every 48 Medical ([facility] Branch ht) hours. furosemide 2021-08 Yes 80mg Take 1 Unive rs 80 mg 2-08 tablet by ity of tablet 00:00: mouth [place] 00 every 48 Medical ([facility] Branch ht) hours. spironolact 2021-08 Yes 25mg Take 1 Univ ers one 25 mg 2-08 tablet by ity o f tablet 00:00: mouth [place] 00 every 48 Medical ([email or web address] Branch ht) hours. furosemide 2021-08 Yes 80mg Take 1 Unive rs 80 mg 2-08 tablet by ity of tablet 00:00: mouth [place] 00 every 48 Medical ([facility] Branch ht) hours. spironolact 2021-08 Yes 25mg Take 1 Univ ers one 25 mg 2-08 tablet by ity o f tablet 00:00: mouth [place] 00 every 48 Medical ([facility] Branch ) hours. furosemide 2021-08 Yes 80mg Take 1 Unive rs 80 mg 2-08 tablet by ity of tablet 00:00: mouth [place] 00 every 48 Medical ([facility] ) hours. spironolact 2021-08 Yes 25mg Take 1 Univ ers one 25 mg 2-08 tablet by ity o f tablet 00:00: mouth [place] 00 every 48 Medical ([facility] ) hours. furosemide 2021-08 Yes 80mg Take 1 Unive rs 80 mg 2-08 tablet by ity of tablet 00:00: mouth [place] 00 every 48 Medical ([facility] Branch ) hours. spironolact 2021-08 Yes 25mg Take 1 Univ ers one 25 mg 2-08 tablet by ity o f tablet 00:00: mouth [place] 00 every 48 Medical ([facility] Branch ht) hours. furosemide 2021- Yes 80mg Take 1 Unive rs 80 mg 2-08 tablet by ity of tablet 00:00: mouth [place] 00 every 48 Medical ([facility] Branch ht) hours. spironolact 2021-08 Yes 25mg Take 1 Univ ers one 25 mg 2-08 tablet by ity o f tablet 00:00: mouth [place] 00 every 48 Medical ([facility]) hours. furosemide 2021- Yes 80mg Take 1 Unive rs 80 mg 2-08 tablet by ity of tablet 00:00: mouth [place] 00 every 48 Medical ([facility]) hours. spironolact 2021-08 Yes 25mg Take 1 Univ ers one 25 mg 2-08 tablet by ity o f tablet 00:00: mouth [place] 00 every 48 Medical ([facility]) hours. furosemide 2021-1 Yes 80mg Take 1 Unive rs 80 mg 2-08 tablet by ity of tablet 00:00: mouth [place] 00 every 48 Medical ([facility]) hours. spironolact 2021-08 Yes 25mg Take 1 Univ ers one 25 mg 2-08 tablet by ity o f tablet 00:00: mouth [place] 00 every 48 Medical ([facility]) hours. furosemide 2021-1 Yes 80mg Take 1 Unive rs 80 mg 2-08 tablet by ity of tablet 00:00: mouth [place] 00 every 48 Medical ([facility]) hours. spironolact 2021-08 Yes 25mg Take 1 Univ ers one 25 mg 2-08 tablet by ity o f tablet 00:00: mouth [place] 00 every 48 Medical ([facility]) hours. furosemide 2021-1 Yes 80mg Take 1 Unive rs 80 mg 2-08 tablet by ity of tablet 00:00: mouth [place] 00 every 48 Medical ([facility]) hours. spironolact 2021- Yes 25mg Take 1 Univ ers one 25 mg 2-08 tablet by ity o f tablet 00:00: mouth [place] 00 every 48 Medical ([facility]) hours. furosemide 2021-1 Yes 80mg Take 1 Unive rs 80 mg 2-08 tablet by ity of tablet 00:00: mouth [place] 00 every 48 Medical ([facility]) hours. spironolact 2021- Yes 25mg Take 1 Univ ers one 25 mg 2-08 tablet by ity o f tablet 00:00: mouth [place] 00 every 48 Medical ([facility]) hours. furosemide 2021-1 Yes 80mg Take 1 Unive rs 80 mg 2-08 tablet by ity of tablet 00:00: mouth [place] 00 every 48 Medical ([facility] ht) hours. quinapriL 2021- Yes [id number] 40mg Take 1 Un justice 40 mg 2-07 tablet by ity of tablet 00:00: mouth [place] 00 every Medical morning. Branch quinapriL 2021-08 Yes [id number] 40mg Take 1 Un justice 40 mg 2-07 tablet by ity of tablet 00:00: mouth [place] 00 every Medical morning. Branch quinapriL 2021- Yes [id number] 40mg Take 1 Un justice 40 mg 2-07 tablet by ity of tablet 00:00: mouth [place] 00 every Medical morning. Branch quinapriL 2021-08 Yes [id number] 40mg Take 1 Un justice 40 mg 2-07 tablet by ity of tablet 00:00: mouth [place] 00 every Medical morning. Branch quinapriL 2021- Yes [id number] 40mg Take 1 Un justice 40 mg 2-07 tablet by ity of tablet 00:00: mouth [place] 00 every Medical morning. Branch quinapriL 2021- Yes [id number] 40mg Take 1 Un justice 40 mg 2-07 tablet by ity of tablet 00:00: mouth [place] 00 every Medical morning. Branch quinapriL 2021-08 Yes [id number] 40mg Take 1 Un justice 40 mg 2-07 tablet by ity of tablet 00:00: mouth [place] 00 every Medical morning. Branch quinapriL 2021- Yes [id number] 40mg Take 1 Un justice 40 mg 2-07 tablet by ity of tablet 00:00: mouth [place] 00 every Medical morning. Branch quinapriL 2021- Yes [id number] 40mg Take 1 Un justice 40 mg 2-07 tablet by ity of tablet 00:00: mouth [place] 00 every Medical morning. Branch quinapriL 2021- Yes [id number] 40mg Take 1 Un justice 40 mg 2-07 tablet by ity of tablet 00:00: mouth [place] 00 every Medical morning. Branch quinapriL 2021- Yes [id number] 40mg Take 1 Un ujstice 40 mg 2-07 tablet by ity of tablet 00:00: mouth [place] 00 every Medical morning. Branch quinapriL 2021- Yes [id number] 40mg Take 1 Un justice 40 mg 2-07 tablet by ity of tablet 00:00: mouth [place] 00 every Medical morning. Branch quinapriL 2021-08 Yes [id number] 40mg Take 1 Un justice 40 mg 2-07 tablet by ity of tablet 00:00: mouth [place] 00 every Medical morning. Branch quinapriL 2021-08 Yes [id number] 40mg Take 1 Un justice 40 mg 2-07 tablet by ity of tablet 00:00: mouth [place] 00 every Medical morning. Branch quinapriL 2021-08 Yes [id number] 40mg Take 1 Un justice 40 mg 2-07 tablet by ity of tablet 00:00: mouth [place] 00 every Medical morning. Branch quinapriL 2021-08 Yes [id number] 40mg Take 1 Un justice 40 mg 2-07 tablet by ity of tablet 00:00: mouth [place] 00 every Medical morning. Branch quinapriL 2021-08 Yes [id number] 40mg Take 1 Un justice 40 mg 2-07 tablet by ity of tablet 00:00: mouth [place] 00 every Medical morning. Branch quinapriL 2021-08 Yes [id number] 40mg Take 1 Un justice 40 mg [...] Pain. Indication s: chronic pain HYDROcodone 2021-08 No [id number] 1{tbl} Take 1 U nivers -acetaminop 1-30 12-28 tablet by it y of hen 7.5-325 00:00: 00:00 [place] mg per 00 :00 every 6 Medical tablet (six) Branch hours as needed for Pain. Indication s: chronic pain MUPIROCIN 2 2021-08 Yes [id number] APPLY U nivers % ointment 1-28 TOPICALLY ity of 00:00: TO THE [place] 00 AFFECTED Medical AREA THREE Branch TIMES DAILY MUPIROCIN 2 2021-08 Yes [id number] APPLY U nivers % ointment 1-28 TOPICALLY ity of 00:00: TO THE [place] 00 AFFECTED Medical AREA THREE Branch TIMES DAILY MUPIROCIN 2 2021-08 Yes [id number] APPLY U nivers % ointment 1-28 TOPICALLY ity of 00:00: TO THE [place] 00 AFFECTED Medical AREA THREE Branch TIMES DAILY MUPIROCIN 2 2021-08 Yes [id number] APPLY U nivers % ointment 1-28 TOPICALLY ity of 00:00: TO THE [place] 00 AFFECTED Medical AREA THREE Branch TIMES DAILY MUPIROCIN 2 2021-08 Yes [id number] APPLY U nivers % ointment 1-28 TOPICALLY ity of 00:00: TO THE [place] 00 AFFECTED Medical AREA THREE Branch TIMES DAILY MUPIROCIN 2 2021-08 Yes [id number] APPLY U nivers % ointment 1-28 TOPICALLY ity of 00:00: TO THE [place] 00 AFFECTED Medical AREA THREE Branch TIMES DAILY MUPIROCIN 2 2021-08 Yes [id number] APPLY U nivers % ointment 1-28 TOPICALLY ity of 00:00: TO THE [place] 00 AFFECTED Medical AREA THREE Branch TIMES DAILY MUPIROCIN 2 2021-08 Yes [id number] APPLY U nivers % ointment 1-28 TOPICALLY ity of 00:00: TO THE [place] 00 AFFECTED Medical AREA THREE Branch TIMES DAILY MUPIROCIN 2 2021-08 Yes [id number] APPLY U nivers % ointment 1-28 TOPICALLY ity of 00:00: TO THE [place] 00 AFFECTED Medical AREA THREE Branch TIMES DAILY MUPIROCIN 2 2021-08 Yes [id number] APPLY U nivers % ointment 1-28 TOPICALLY ity of 00:00: TO THE [place] 00 AFFECTED Medical AREA THREE Branch TIMES DAILY MUPIROCIN 2 2021-08 Yes [id number] APPLY U nivers % ointment 1-28 TOPICALLY ity of 00:00: TO THE [place] 00 AFFECTED Medical AREA THREE Branch TIMES DAILY MUPIROCIN 2 2021-08 Yes [id number] APPLY U nivers % ointment 1-28 TOPICALLY ity of 00:00: TO THE [place] 00 AFFECTED Medical AREA THREE Branch TIMES DAILY MUPIROCIN 2 2021-08 Yes [id number] APPLY U nivers % ointment 1-28 TOPICALLY ity of 00:00: TO THE [place] AFFECTED Medical AREA THREE Branch TIMES DAILY MUPIROCIN 2 2021-08 Yes [id number] APPLY U nivers % ointment 1-28 TOPICALLY ity of 00:00: TO THE [place] AFFECTED Medical AREA THREE Branch TIMES DAILY MUPIROCIN 2 2021-08 Yes [id number] APPLY U nivers % ointment 1-28 TOPICALLY ity of 00:00: TO THE [place] AFFECTED Medical AREA THREE Branch TIMES DAILY MUPIROCIN 2 2021-08 Yes [id number] APPLY U nivers % ointment 1-28 TOPICALLY ity of 00:00: TO THE [place] [facility]ECT[facility] Medical AREA THREE Branch TIMES DAILY MUPIROCIN 2 2021-08 Yes [id number] APPLY [facility] nivers % ointment 1-28 TOPICALLY ity of 00:00: TO THE [place] [facility] Medical AREA THREE Branch TIMES DAILY MUPIROCIN 2 2021-08 Yes [id number] APPLY U nivers % ointment 1-28 TOPICALLY ity of 00:00: TO THE [place] [facility] Medical AREA THREE Branch TIMES DAILY MUPIROCIN 2 2021-08 Yes [id number] APPLY U nivers % ointment 1-28 TOPICALLY ity of 00:00: TO THE [place] [facility] Medical AREA THREE Branch TIMES DAILY MUPIROCIN 2 2021-08 Yes [id number] APPLY U nivers % ointment 1-28 TOPICALLY ity of 00:00: TO THE [place] [facility] Medical AREA THREE Branch TIMES DAILY MUPIROCIN 2 2021-08 Yes [id number] APPLY U nivers % ointment 1-28 TOPICALLY ity of 00:00: TO THE [place] [facility] Medical AREA THREE Branch TIMES DAILY clonazePAM 2021-08 Yes [id number] 1mg Take 1 U nivers 1 mg tablet 1-21 tablet by ity of 00:00: mouth in [place] [address] the Medical morning Branch and 1 tablet at noon and 1 tablet in the evening. clonazePAM 2021-08 Yes [id number] 1mg Take 1 U nivers 1 mg tablet 1-21 tablet by ity of 00:00: mouth in [place] the Medical morning Branch and 1 tablet at noon and 1 tablet in the evening. clonazePAM 2021-08 Yes [id number] 1mg Take 1 U nivers 1 mg tablet 1-21 tablet by ity of 00:00: mouth in [place] 00 the Medical morning Branch and 1 tablet at noon and 1 tablet in the evening. clonazePAM 2021- Yes [id number] 1mg Take 1 U nivers 1 mg tablet 1-21 tablet by ity of 00:00: mouth in [place] [address] the Medical morning Branch and 1 tablet at noon and 1 tablet in the evening. clonazePAM 2021- Yes [id number] 1mg Take 1 U nivers 1 mg tablet 1-21 tablet by ity of 00:00: mouth in [place] [address] the Medical morning Branch and 1 tablet at noon and 1 tablet in the evening. clonazePAM 2021- Yes [id number] 1mg Take 1 U nivers 1 mg tablet 1-21 tablet by ity of 00:00: mouth in [place] [address] the Medical morning Branch and 1 tablet at noon and 1 tablet in the evening. clonazePAM 2021- Yes [id number] 1mg Take 1 U nivers 1 mg tablet 1-21 tablet by ity of 00:00: mouth in [place] [address] the Medical morning Branch and 1 tablet at noon and 1 tablet in the evening. clonazePAM 2021- Yes [id number] 1mg Take 1 U nivers 1 mg tablet 1-21 tablet by ity of 00:00: mouth in [place] [address] the Medical morning Branch and 1 tablet at noon and 1 tablet in the evening. clonazePAM 2021- Yes [id number] 1mg Take 1 U nivers 1 mg tablet 1-21 tablet by ity of 00:00: mouth in [place] [address] the Medical morning Branch and 1 tablet at noon and 1 tablet in the evening. clonazePAM 2021- Yes [id number] 1mg Take 1 U nivers 1 mg tablet 1-21 tablet by ity of 00:00: mouth in [place] [address] the Medical morning Branch and 1 tablet at noon and 1 tablet in the evening. clonazePAM 2021-1 Yes [id number] 1mg Take 1 U nivers 1 mg tablet 1-21 tablet by ity of 00:00: mouth in [place] [address] the Medical morning Branch and 1 tablet at noon and 1 tablet in the evening. clonazePAM 2021-1 Yes [id number] 1mg Take 1 U nivers 1 mg tablet 1-21 tablet by ity of 00:00: mouth in [place] [address] the Medical morning Branch and 1 tablet at noon and 1 tablet in the evening. clonazePAM 2021- Yes [id number] 1mg Take 1 U nivers 1 mg tablet 1-21 tablet by ity of 00:00: mouth in [place] 00 the Medical morning Branch and 1 tablet at noon and 1 tablet in the evening. clonazePAM 2021- Yes [id number] 1mg Take 1 U nivers 1 mg tablet 1-21 tablet by ity of 00:00: mouth in [place] 00 the Medical morning Branch and 1 tablet at noon and 1 tablet in the evening. clonazePAM 2021- Yes [id number] 1mg Take 1 U nivers 1 mg tablet 1-21 tablet by ity of 00:00: mouth in [place] 00 the Medical morning Branch and 1 tablet at noon and 1 tablet in the evening. clonazePAM 2021-1 Yes [id number] 1mg Take 1 U nivers 1 mg tablet 1-21 tablet by ity of 00:00: mouth in [place] [address] the Medical morning Branch and 1 tablet at noon and 1 tablet in the evening. clonazePAM 2021- Yes [id number] 1mg Take 1 U nivers 1 mg tablet 1-21 tablet by ity of 00:00: mouth in [place] [address] the Medical morning Branch and 1 tablet at noon and 1 tablet in the evening. clonazePAM 2021-1 Yes [id number] 1mg Take 1 U nivers 1 mg tablet 1-21 tablet by ity of 00:00: mouth in [place] [address] the Medical morning Branch and 1 tablet at noon and 1 tablet in the evening. clonazePAM 2021-1 Yes [id number] 1mg Take 1 U nivers 1 mg tablet 1-21 tablet by ity of 00:00: mouth in [place] [address] the Medical morning Branch and 1 tablet at noon and 1 tablet in the evening. clonazePAM 2021-1 Yes [id number] 1mg Take 1 U nivers 1 mg tablet 1-21 tablet by ity of 00:00: mouth in [place] [address] the Medical morning Branch and 1 tablet at noon and 1 tablet in the evening. clonazePAM 2-1 Yes [id number] 1mg Take 1 U nivers 1 mg tablet 1-21 tablet by ity of 00:00: mouth in [place] [address] the Medical morning Branch and 1 tablet at noon and 1 tablet in the evening. clonazePAM 2021-1 Yes [id number] 1mg Take 1 U nivers 1 mg tablet 1-21 tablet by ity of 00:00: mouth in [place] 00 the Medical morning Branch and 1 tablet at noon and 1 tablet in the evening. clonazePAM 2021-1 Yes [id number] 1mg Take 1 U nivers 1 mg tablet 1-21 tablet by ity of 00:00: mouth in [place] 00 the Medical morning Branch and 1 tablet at noon and 1 tablet in the evening. furosemide 2-1 Yes 80mg Take 1 [facility] rs 80 mg 1-09 tablet by ity of tablet 00:00: mouth in [place] the Medical morning. Branch furosemide 2022-1 Yes 80mg Take 1 [facility] rs 80 mg 1-09 tablet by ity of tablet 00:00: mouth in [place] the Medical morning. Branch furosemide 2-1 Yes 80mg Take 1 [facility] rs 80 mg 1-09 tablet by ity of tablet 00:00: mouth in [place] the Medical morning. Branch furosemide 2-1 Yes 80mg Take 1 [facility] rs 80 mg 1-09 tablet by ity of tablet 00:00: mouth in [place] the Medical morning. Branch furosemide 2-1 Yes 80mg Take 1 [facility] rs 80 mg 1-09 tablet by ity of tablet 00:00: mouth in [place] the Medical morning. Branch furosemide 2-1 Yes 80mg Take 1 [facility] rs 80 mg 1-09 tablet by ity of tablet 00:00: mouth in [place] the Medical morning. Branch furosemide 2-1 Yes 80mg Take 1 [facility] rs 80 mg 1-09 tablet by ity of tablet 00:00: mouth in [place] the Medical morning. Branch furosemide 2022-1 Yes 80mg Take 1 [facility] rs 80 mg 1-09 tablet by ity of tablet 00:00: mouth in [place] the Medical morning. Branch furosemide 2022-1 Yes 80mg Take 1 [facility] rs 80 mg 1-09 tablet by ity of tablet 00:00: mouth in [place] the Medical morning. Branch furosemide 2022-1 Yes 80mg Take 1 [facility] rs 80 mg 1-09 tablet by ity of tablet 00:00: mouth in [place] the Medical morning. Branch furosemide 2022-1 Yes 80mg Take 1 [facility] rs 80 mg 1-09 tablet by ity of tablet 00:00: mouth in [place] 00 the Medical morning. Branch furosemide 2021-1 Yes 80mg Take 1 [facility] rs 80 mg 1-09 tablet by ity of tablet 00:00: mouth in [place] 00 the Medical morning. Branch furosemide 2021-1 Yes 80mg Take 1 [facility] rs 80 mg 1-09 tablet by ity of tablet 00:00: mouth in [place] 00 the Medical morning. Branch furosemide 2021-1 Yes 80mg Take 1 [facility] rs 80 mg 1-09 tablet by ity of tablet 00:00: mouth in [place] 00 the Medical morning. Branch furosemide 2021-1 Yes 80mg Take 1 [facility] rs 80 mg 1-09 tablet by ity of tablet 00:00: mouth in [place] 00 the Medical morning. Branch furosemide 2021-1 Yes 80mg Take 1 [facility] rs 80 mg 1-09 tablet by ity of tablet 00:00: mouth in [place] 00 the Medical morning. Branch furosemide 2021-1 Yes 80mg Take 1 [facility] rs 80 mg 1-09 tablet by ity of tablet 00:00: mouth in [place] 00 the Medical morning. Branch furosemide 2021-1 Yes 80mg Take 1 [facility] rs 80 mg 1-09 tablet by ity of tablet 00:00: mouth in [place] 00 the Medical morning. Branch furosemide 2021-1 Yes 80mg Take 1 [facility] rs 80 mg 1-09 tablet by ity of tablet 00:00: mouth in [place] 00 the Medical morning. Branch furosemide 2021-1 2022- No 80mg Take 1 [facility] ers 80 mg 1-09 12-08 tablet by ity of tablet 00:00: 00:00 mouth in [place] 00 :00 the Medical morning. Branch furosemide 2021-1 2022- No 80mg Take 1 [facility] ers 80 mg 1-09 12-08 tablet by ity of tablet 00:00: 00:00 mouth in [place] 00 :00 the Medical morning. Branch NIFEdipine 2021-1 Yes [id number] 30mg Take 1 U nivers ER 30 mg 1-08 tablet by ity of tablet 00:00: mouth in [place] 00 the Medical morning Branch and 1 tablet in the evening. NIFEdipine 2-1 Yes [id number] 30mg Take 1 U nivers ER 30 mg 1-08 tablet by [facility]y of tablet 00:00: mouth in [place] 00 the Medical morning Branch and 1 tablet in the evening. NIFEdipine 2021-1 Yes [id number] 30mg Take 1 U nivers ER 30 mg 1-08 tablet by ity of tablet 00:00: mouth in [place] 00 the Medical morning Branch and 1 tablet in the evening. NIFEdipine 2021-1 Yes [id number] 30mg Take 1 U n[facility] ER 30 mg 1-08 tablet by ity of tablet 00:00: mouth in [place] 00 the Medical morning Branch and 1 tablet in the evening. NIFEdipine 2021-1 Yes [id number] 30mg Take 1 [facility] ER 30 mg 1-08 tablet by [facility]y of tablet 00:00: mouth in [place] 00 the Medical morning Branch and 1 tablet in the evening. NIFEdipine 2021-1 Yes [id number] 30mg Take 1 [facility] ER 30 mg 1-08 tablet by ity of tablet 00:00: mouth in [place] 00 the Medical morning Branch and 1 tablet in the evening. NIFEdipine 2021-1 Yes [id number] 30mg Take 1 [facility] n[facility] ER 30 mg 1-08 tablet by ity of tablet 00:00: mouth in [place] 00 the Medical morning Branch and 1 tablet in the evening. NIFEdipine 2021-1 Yes [id number] 30mg Take 1 [facility] ER 30 mg 1-08 tablet by ity of tablet 00:00: mouth in [place] 00 the Medical morning Branch and 1 tablet in the evening. NIFEdipine 2021-1 Yes [id number] 30mg Take 1 [facility] n[facility] ER 30 mg 1-08 tablet by ity of tablet 00:00: mouth in [place] 00 the Medical morning Branch and 1 tablet in the evening. NIFEdipine 2021-1 Yes [id number] 30mg Take 1 [facility] n[facility] ER 30 mg 1-08 tablet by ity of tablet 00:00: mouth in [place] 00 the Medical morning Branch and 1 tablet in the evening. NIFEdipine 2021-1 Yes [id number] 30mg Take 1 U nivers ER 30 mg 1-08 tablet by ity of tablet 00:00: mouth in [place] 00 the Medical morning Branch and 1 tablet in the evening. NIFEdipine 2021-1 Yes [id number] 30mg Take 1 [facility] n[facility] ER 30 mg 1-08 tablet by ity of tablet 00:00: mouth in [place] 00 the Medical morning Branch and 1 tablet in the evening. NIFEdipine 2021-1 Yes [id number] 30mg Take 1 [facility] ER 30 mg 1-08 tablet by ity of tablet 00:00: mouth in [place] 00 the Medical morning Branch and 1 tablet in the evening. NIFEdipine 2021-1 Yes [id number] 30mg Take 1 [facility] ER 30 mg 1-08 tablet by ity of tablet 00:00: mouth in [place] 00 the Medical morning Branch and 1 tablet in the evening. NIFEdipine 2021-1 Yes [id number] 30mg Take 1 [facility] ER 30 mg 1-08 tablet by ity of tablet 00:00: mouth in [place] 00 the Medical morning Branch and 1 tablet in the evening. NIFEdipine 2021-1 Yes [id number] 30mg Take 1 [facility] ER 30 mg 1-08 tablet by ity of tablet 00:00: mouth in [place] 00 the Medical morning Branch and 1 tablet in the evening. NIFEdipine 2021-1 Yes [id number] 30mg Take 1 [facility] n[facility] ER 30 mg 1-08 tablet by ity of tablet 00:00: mouth in [place] [address] the Medical morning Branch and 1 tablet in the evening. NIFEdipine 2021-1 Yes [id number] 30mg Take 1 [facility] n[facility] ER 30 mg 1-08 tablet by ity of tablet 00:00: mouth in [place] [address] the Medical morning Branch and 1 tablet in the evening. NIFEdipine 2021-08 Yes [id number] 30mg Take 1 [facility] n[facility] ER 30 mg 1-08 tablet by ity of tablet 00:00: mouth in [place] 00 the Medical morning Branch and 1 tablet in the evening. NIFEdipine 2021-1 Yes [id number] 30mg Take 1 [facility] n[facility] ER 30 mg 1-08 tablet by ity of tablet 00:00: mouth in [place] [address] the Medical morning Branch and 1 tablet in the evening. NIFEdipine 2021-1 Yes [id number] 30mg Take 1 [facility] n[facility] ER 30 mg 1-08 tablet by ity of tablet 00:00: mouth in [place] [address] the Medical morning Branch and 1 tablet in the evening. NIFEdipine 2021-1 Yes [id number] 30mg Take 1 [facility] n[facility] ER 30 mg 1-08 tablet by ity of tablet 00:00: mouth in [place] [address] the Medical morning Branch and 1 tablet in the evening. NIFEdipine 2021-1 Yes [id number] 30mg Take 1 [facility] n[facility] ER 30 mg 1-08 tablet by ity of tablet 00:00: mouth in [place] [address] the Medical morning Branch and 1 tablet in the evening. NIFEdipine 2021-1 Yes [id number] 30mg Take 1 U nivers ER 30 mg 1-08 tablet by ity of tablet 00:00: mouth in [place] 00 the Medical morning Branch and 1 tablet in the evening. NIFEdipine 2021-08 Yes [id number] 30mg Take 1 [facility] n[facility] ER 30 mg 1-08 tablet by ity of tablet 00:00: mouth in [place] 00 the Medical morning Branch and 1 tablet in the evening. NIFEdipine 2021-08 Yes [id number] 30mg Take 1 U nivers ER 30 mg 1-08 tablet by ity of tablet 00:00: mouth in [place] 00 the Medical morning Branch and 1 tablet in the evening. NIFEdipine 2021-08 Yes [id number] 30mg Take 1 [facility] nivers ER 30 mg 1-08 tablet by ity of tablet 00:00: mouth in [place] 00 the Medical morning Branch and 1 tablet in the evening. NIFEdipine 1 Yes [id number] 30mg Take 1 [facility] n[facility] ER 30 mg 1-08 tablet by ity of tablet 00:00: mouth in [place] 00 the Medical morning Branch and 1 tablet in the evening. NIFEdipine 2021-08 Yes [id number] 30mg Take 1 [facility] n[facility] ER 30 mg 1-08 tablet by ity of tablet 00:00: mouth in [place] 00 the Medical morning Branch and 1 tablet in the evening. NIFEdipine 1 Yes [id number] 30mg Take 1 [facility] ER 30 mg 1-08 tablet by ity of tablet 00:00: mouth in [place] 00 the Medical morning Branch and 1 tablet in the evening. NIFEdipine 2021-08 Yes [id number] 30mg Take 1 U n[facility] ER 30 mg 1-08 tablet by ity of tablet 00:00: mouth in [place] 00 the Medical morning Branch and 1 tablet in the evening. NIFEdipine 1 Yes [id number] 30mg Take 1 [facility] n[facility] ER 30 mg 1-08 tablet by ity of tablet 00:00: mouth in [place] 00 the Medical morning Branch and 1 tablet in the evening. NIFEdipine 1 Yes [id number] 30mg Take 1 [facility] n[facility] ER 30 mg 1-08 tablet by ity of tablet 00:00: mouth in [place] 00 the Medical morning Branch and 1 tablet in the evening. NIFEdipine 2021-08- No [id number] 30mg Take 1 [facility] ER 30 mg 1-08 12-19 tablet by ity o f tablet 00:00: 00:00 mouth in [place] 00 :00 the Medical morning Branch and 1 tablet in the evening. NIFEdipine 2021-08- No [id number] 30mg Take 1 [facility] ER 30 mg 08-10 tablet by ity o f tablet 00:00: 00:00 mouth in [place] 00 :00 the Medical morning Branch and 1 tablet in the evening. insulin 2021-08 Yes [id number] ADMINISTER [facility] 08-05 62 UNITS ity of ([place] 00:00[place] SKIN THREE Medi ash[facility] U-200) 200 TIMES Branch unit/mL (3 DAILY mL) InPn insulin 2021-08 Yes [id number] ADMINISTER [facility] 08-05 62 UNITS ity of ([place] 00:00: [place]LE[place] SKIN THREE Medi ash[facility] U-200) 200 TIMES Branch unit/mL (3 DAILY mL) InPn insulin 2021-08 Yes [id number] ADMINISTER [facility] 08-05 62 UNITS ity of ([place] 00:00: [place]LE[place] SKIN THREE Medi ash[facility] U-200) 200 TIMES Branch unit/mL (3 DAILY mL) InPn insulin 2021-08 Yes [id number] ADMINISTER [facility] 03 62 UNITS ity of ([place] 00:00: [place]LE[place] 00 SKIN THREE Medi ash[facility] U-200) 200 TIMES Branch unit/mL (3 DAILY mL) InPn insulin 2021-08 Yes [id number] ADMINISTER [facility] 08-05 62 UNITS ity of (TR[place]A 00:00: [place] THE [place]LEXT[place] 00 SKIN THREE Medi ash[facility] U-200) 200 TIMES Branch unit/mL (3 DAILY mL) InPn insulin 2021-08 Yes [id number] ADMINISTER [facility] 03 62 UNITS ity of (TR[place]IBA 00:00: [place]ER THE [place]LEXT[place] 00 SKIN THREE Medi ash[facility] U-200) 200 TIMES Branch unit/mL (3 DAILY mL) InPn insulin 2021-08 Yes [id number] ADMINISTER [facility] 03 62 UNITS ity of ([place]A 00:00: [place]ER THE [place]LEXTOU[place] 00 SKIN THREE Medi ash[facility] U-200) 200 TIMES Branch unit/mL (3 DAILY mL) InPn insulin 2021-08 Yes [id number] ADMINISTER [facility] 1-03 62 UNITS ity of (TR[place]A 00:00: UNDER THE [place]LEXTOU[place] 00 SKIN THREE Medi ash[facility] U-200) 200 TIMES Branch unit/mL (3 DAILY mL) InPn insulin 2021-08 Yes [id number] ADMINISTER [facility] -03 62 UNITS ity of ([place] 00:00: UNDER THE [place] FLEXTOUCH 00 SKIN THREE Medi ash[facility] U-200) 200 TIMES Branch unit/mL (3 DAILY mL) InPn insulin 2021-08 Yes [id number] ADMINISTER [facility] 03 62 UNITS ity of ([place] 00:00: UNDER THE [place]LEXTOU[place] 00 SKIN THREE Medi ash[facility] U-200) 200 TIMES Branch unit/mL (3 DAILY mL) InPn insulin 2021-08 Yes [id number] ADMINISTER [facility] 08-05 62 UNITS ity of (TR[place]IBA 00:00: [place] THE [place]LE[place] 00 SKIN THREE Medi ash[facility] U-200) 200 TIMES Branch unit/mL (3 DAILY mL) InPn insulin 2021-08 Yes [id number] ADMINISTER [facility] 03 62 UNITS ity of ([place] 00:00: [place]ER THE [place]LEXTOUCH 00 SKIN THREE Medi ash[facility] U-200) 200 TIMES Branch unit/mL (3 DAILY mL) InPn insulin 2021-08 Yes [id number] ADMINISTER [facility] -03 62 UNITS ity of ([place] 00:00: UNDER THE [place] FLEXTOUCH 00 SKIN THREE Medi ash[facility] U-200) 200 TIMES Branch unit/mL (3 DAILY mL) InPn insulin 2021-08 Yes [id number] ADMINISTER [facility] -03 62 UNITS ity of ([place] 00:00: [place]ER THE [place]LEXT[place] 00 SKIN THREE Medi ash[facility] U-200) 200 TIMES Branch unit/mL (3 DAILY mL) InPn insulin 2021-08 Yes [id number] ADMINISTER [facility] -03 62 UNITS ity of ([place] 00:00: UNDER THE [place]LEXTOU[place] 00 SKIN THREE [facility] U-200) 200 TIMES Branch unit/mL (3 DAILY mL) InPn insulin 2021-08 Yes [id number] ADMINISTER [facility] -03 62 UNITS ity of (TR[place]A 00:00: UNDER THE [place]LEXTOUCH 00 SKIN THREE Medi ash[facility] U-200) 200 TIMES Branch unit/mL (3 DAILY mL) InPn insulin 2021-08 Yes [id number] ADMINISTER [facility] 08-05 62 UNITS ity of ([place]A 00:00: [place]ER THE [place] FLEXTOUCH 00 SKIN THREE [facility]i ash[facility] U-200) 200 TIMES Branch unit/mL (3 DAILY mL) InPn insulin 2021-08 Yes [id number] ADMINISTER [facility] 08-05 62 UNITS ity of ([place]A 00:00: UNDER THE [place]LEXTOUCH 00 SKIN THREE Medi ash[facility] U-200) 200 TIMES Branch unit/mL (3 DAILY mL) InPn insulin 2021-08 Yes [id number] ADMINISTER [facility] 08-05 62 UNITS ity of ([place]A 00:00: UNDER THE [place]LEXT[place] 00 SKIN THREE [facility] U-200) 200 TIMES Branch unit/mL (3 DAILY mL) InPn insulin 2021-08 Yes [id number] ADMINISTER [facility] 08-05 62 UNITS ity of ([place] 00:00: UNDER THE [place]LEXT[place] 00 SKIN THREE [facility]i ash[facility] U-200) 200 TIMES Branch unit/mL (3 DAILY mL) InPn insulin 2021-08 Yes [id number] ADMINISTER [facility] 08-05 62 UNITS ity of ([place] 00:00: [place]ER THE [place]LE[place] 00 SKIN THREE [facility]i ash[facility] U-200) 200 TIMES Branch unit/mL (3 DAILY mL) InPn insulin 2021-08 Yes [id number] ADMINISTER [facility] 03 62 UNITS ity of ([place] 00:00: UNDER THE [place]LEXT[place] 00 SKIN THREE Medi [facility] U-200) 200 TIMES Branch unit/mL (3 DAILY mL) InPn insulin 2021-08 Yes [id number] ADMINISTER [facility] -03 62 UNITS ity of ([place] 00:00: UNDER THE [place]LE[place] 00 SKIN THREE Medi ash[facility] U-200) 200 TIMES Branch unit/mL (3 DAILY mL) InPn insulin 2021-08 Yes [id number] ADMINISTER [facility] 08-05 62 UNITS ity of ([place] 00:00: [place]ER THE [place]LEXT[place] 00 SKIN THREE Medi ash[facility] U-200) 200 TIMES Branch unit/mL (3 DAILY mL) InPn insulin 2021-08 Yes [id number] ADMINISTER [facility] 08-05 62 UNITS ity of ([place] 00:00: [place] THE [place]LE[place] 00 SKIN THREE [facility]i [facility] U-200) 200 TIMES Branch unit/mL (3 DAILY mL) InPn insulin 2021-08 Yes [id number] ADMINISTER [facility] 08-05 62 UNITS ity of ([place] 00:00: [place]ER THE [place]LE[place] 00 SKIN THREE [facility]i [facility] U-200) 200 TIMES Branch unit/mL (3 DAILY mL) InPn insulin 2021-08 Yes [id number] ADMINISTER [facility] 08-05 62 UNITS ity of ([place] 00:00: [place]ER THE [place]LE[place] 00 SKIN THREE [facility]i [facility] U-200) 200 TIMES Branch unit/mL (3 DAILY mL) InPn insulin 2021-08 Yes [id number] ADMINISTER [facility] 08-05 62 UNITS ity of ([place] 00:00: [place]ER THE [place]LE[place] 00 SKIN THREE [facility]i ash[facility] U-200) 200 TIMES Branch unit/mL (3 DAILY mL) InPn insulin 2021-08 Yes [id number] ADMINISTER [facility] 08-05 62 UNITS ity of ([place] 00:00: [place] THE [place]LE[place] 00 SKIN THREE [facility] U-200) 200 TIMES Branch unit/mL (3 DAILY mL) InPn insulin 2021-08 Yes [id number] ADMINISTER [facility] 08-05 62 UNITS ity of ([place] 00:00: UNDER THE [place]LE[place] 00 SKIN THREE Med[facility] U-200) 200 TIMES Branch unit/mL (3 DAILY mL) InPn insulin 2021-08 Yes [id number] ADMINISTER [facility] 08-05 62 UNITS ity of ([place] 00:00: UNDER THE [place]LE[place] 00 SKIN THREE Med[facility] U-200) 200 TIMES Branch unit/mL (3 DAILY mL) InPn insulin 2021-08 Yes [id number] ADMINISTER [facility] 08-05 62 UNITS ity of ([place] 00:00: [place] THE [place]LE[place] 00 SKIN THREE [facility]i [facility] U-200) 200 TIMES Branch unit/mL (3 DAILY mL) InPn insulin 2021-08 Yes [id number] ADMINISTER [facility] 08-05 62 UNITS ity of ([place] 00:00: [place] THE [place]LE[place] 00 SKIN THREE [facility]i [facility] U-200) 200 TIMES Branch unit/mL (3 DAILY mL) InPn insulin 2021-08 Yes [id number] ADMINISTER [facility] 08-05 62 UNITS ity of ([place] 00:00: [place]ER THE [place]LE[place]CH 00 SKIN THREE [facility]i [facility] U-200) 200 TIMES Branch unit/mL (3 DAILY mL) InPn insulin 2021-08 Yes [id number] ADMINISTER [facility] 08-05 62 UNITS ity of ([place] 00:00: [place] THE [place]LE[place]CH 00 SKIN THREE Medi ash[facility] U-200) 200 TIMES Branch unit/mL (3 DAILY mL) InPn insulin 2021-08 Yes [id number] ADMINISTER [facility] 08-05 62 UNITS ity of ([place] 00:00: [place] THE [place]LEXTOUCH 00 SKIN THREE [facility]i ash[facility] U-200) 200 TIMES Branch unit/mL (3 DAILY mL) InPn insulin 2021-08 Yes [id number] ADMINISTER [facility] 08-05 62 UNITS ity of ([place] 00:00: [place] THE [place]LE[place] 00 SKIN THREE Medi ash[facility] U-200) 200 TIMES Branch unit/mL (3 DAILY mL) InPn insulin 2021-08 Yes [id number] ADMINISTER [facility] 08-05 62 UNITS ity of ([place] 00:00: UNDER THE [place] FLEXTOUCH 00 SKIN THREE Medi ash[facility] U-200) 200 TIMES Branch unit/mL (3 DAILY mL) InPn insulin 2021-08 Yes [id number] ADMINISTER [facility] 08-05 62 UNITS ity of ([place] 00:00: [place] THE [place] FLEXT[place] 00 SKIN THREE Medi ash[facility] U-200) 200 TIMES Branch unit/mL (3 DAILY mL) InPn HYDROcodone 2021-08 Yes [id number] 1{tbl} Take 1 [...] 2021-08 Yes [id number] 1{tbl} Take 1 [facility] justiec -acetaminop 1-02 tablet by ity of hen [...] Pain. Indication s: chronic pain HYDROcodone 2021-08 No [id number] 1{tbl} Take 1 U nivers -acetaminop 08-0430 tablet by it y of hen 7.5-325 00:00: 00:[place] mg per 00 :00 every 6 Medical tablet (six) Branch hours as needed for Pain. Indication s: chronic pain AMLODIPINE 2021-08 Yes [id number] 5mg TAKE 1 U nivers 5 mg tablet 0-28 TABLET BY ity of 00:00: MOUTH [place] DAILY Medical Branch AMLODIPINE 2021-08 Yes [id number] 5mg TAKE 1 U nivers 5 mg tablet 0-28 TABLET BY ity of 00:00: MOUTH [place] DAILY Medical Branch AMLODIPINE 2021-08 Yes [id number] 5mg TAKE 1 U nivers 5 mg tablet 0-28 TABLET BY ity of 00:00: MOUTH [place] DAILY Medical Branch AMLODIPINE 2021-08 Yes [id number] 5mg TAKE 1 U nivers 5 mg tablet 0-28 TABLET BY ity of 00:00: MOUTH [place] DAILY Medical Branch AMLODIPINE 2021-08 Yes [id number] 5mg TAKE 1 [facility] nivers 5 mg tablet 0-28 TABLET BY ity of 00:00: MOUTH 00 DAILY Medical Branch AMLODIPINE 2021-08- No [id number] 5mg TAKE 1 [facility] 5 mg tablet 0-28 11-08 TABLET BY it y of 00:00: 00:00 MOUTH [place] 00 :00 DAILY Medical Branch AMLODIPINE 2021-08- No [id number] 5mg TAKE 1 [facility] 5 mg tablet 0-28 11-08 TABLET BY it y of 00:00: 00:00 MOUTH [place] 00 :00 DAILY Medical Branch AMLODIPINE 2021-08- No [id number] 5mg TAKE 1 [facility] 5 mg tablet 0-28 11-08 TABLET BY it y of 00:00: 00:00 MOUTH [place] 00 :00 DAILY Medical Branch TIZANIDINE 2021-08 Yes [id number] TAKE 1 [facility] 4 mg tablet 0-24 TABLET BY ity of 00:00: MOUTH [place] 00 EVERY 8 Medical HOURS Branch NEEDED TIZANIDINE 2021-08 Yes [id number] TAKE 1 [facility] 4 mg tablet 0-24 TABLET BY ity of 00:00: MOUTH [place] 00 EVERY 8 Medical HOURS Branch NEEDED TIZANIDINE 2021-08 Yes [id number] TAKE 1 [facility] 4 mg tablet 0-24 TABLET BY ity of 00:00: MOUTH [place] 00 EVERY 8 Medical HOURS Branch NEEDED TIZANIDINE 2022-1 Yes [id number] TAKE 1 [facility] 4 mg tablet 0-24 TABLET BY ity of 00:00: MOUTH [place] 00 EVERY 8 Medical HOURS Branch NEEDED TIZANIDINE 2022-1 Yes [id number] TAKE 1 [facility] 4 mg tablet 0-24 TABLET BY ity of 00:00: MOUTH [place] 00 EVERY 8 [facility] HOURS Branch NEEDED TIZANIDINE 2022-1 Yes [id number] TAKE 1 [facility] 4 mg tablet 0-24 TABLET BY [facility] 00:00: MOUTH [place] 00 EVERY 8 Medical HOURS Branch NEEDED TIZANIDINE 2022-1 Yes [id number] TAKE 1 [facility] 4 mg tablet 0-24 TABLET BY [facility] 00:00: MOUTH [place] 00 EVERY 8 Medical HOURS Branch NEEDED TIZANIDINE 2-1 Yes [id number] TAKE 1 [facility] 4 mg tablet 0-24 TABLET BY [facility] 00:00: MOUTH [place] 00 EVERY 8 Medical HOURS Branch NEEDED TIZANIDINE 2-1 Yes [id number] TAKE 1 [facility] 4 mg tablet 0-24 TABLET BY [facility] 00:00: MOUTH [place] 00 EVERY 8 Medical HOURS Branch NEEDED TIZANIDINE 2-1 Yes [id number] TAKE 1 [facility] 4 mg tablet 0-24 TABLET BY [facility] 00:00: MOUTH [place] 00 EVERY 8 Medical HOURS Branch NEEDED TIZANIDINE 2-1 Yes [id number] TAKE 1 [facility] 4 mg tablet 0-24 TABLET BY [facility] of 00:00: MOUTH [place] 00 EVERY 8 Medical HOURS Branch NEEDED TIZANIDINE 2-1 Yes [id number] TAKE 1 [facility] 4 mg tablet 0-24 TABLET BY [facility] 00:00: MOUTH [place] 00 EVERY 8 Medical HOURS Branch NEEDED TIZANIDINE 2022-1 Yes [id number] TAKE 1 [facility] 4 mg tablet 0-24 TABLET BY [facility] 00:00: MOUTH [place] 00 EVERY 8 Medical HOURS Branch NEEDED TIZANIDINE 2022-1 Yes [id number] TAKE 1 [facility] 4 mg tablet 0-24 TABLET BY [facility] 00:00: MOUTH [place] 00 EVERY 8 Medical HOURS Branch NEEDED TIZANIDINE 2022-1 Yes [id number] TAKE 1 [facility] 4 mg tablet 0-24 TABLET BY [facility] 00:00: MOUTH [place] 00 EVERY 8 Medical HOURS Branch NEEDED TIZANIDINE 2-1 Yes [id number] TAKE 1 [facility] 4 mg tablet 0-24 TABLET BY [facility] of 00:00: MOUTH [place] 00 EVERY 8 Medical HOURS Branch NEEDED TIZANIDINE 2022-1 Yes [id number] TAKE 1 [facility] 4 mg tablet 0-24 TABLET BY [facility] 00:00: MOUTH [place] 00 EVERY 8 Medical HOURS Branch NEEDED TIZANIDINE 2-1 Yes [id number] TAKE 1 [facility] 4 mg tablet 0-24 TABLET BY [facility] 00:00: MOUTH [place] 00 EVERY 8 Medical HOURS Branch NEEDED TIZANIDINE 2-1 Yes [id number] TAKE 1 [facility] 4 mg tablet 0-24 TABLET BY [facility] 00:00: MOUTH [place] 00 EVERY 8 Medical HOURS Branch NEEDED TIZANIDINE 2-1 Yes [id number] TAKE 1 [facility] 4 mg tablet 0-24 TABLET BY [facility] 00:00: MOUTH [place] 00 EVERY 8 Medical HOURS Branch NEEDED TIZANIDINE 2-1 Yes [id number] TAKE 1 [facility] 4 mg tablet 0-24 TABLET BY [facility] 00:00: MOUTH [place] 00 EVERY 8 Medical HOURS Branch NEEDED TIZANIDINE 2-1 Yes [id number] TAKE 1 [facility] 4 mg tablet 0-24 TABLET BY [facility] 00:00: MOUTH [place] 00 EVERY 8 Medical HOURS Branch NEEDED TIZANIDINE 2-1 Yes [id number] TAKE 1 [facility] 4 mg tablet 0-24 TABLET BY [facility] 00:00: MOUTH [place] 00 EVERY 8 Medical HOURS Branch NEEDED TIZANIDINE 2-1 Yes [id number] TAKE 1 [facility] 4 mg tablet 0-24 TABLET BY [facility] 00:00: MOUTH [place] 00 EVERY 8 Medical HOURS Branch NEEDED TIZANIDINE 2-1 Yes [id number] TAKE 1 [facility] 4 mg tablet 0-24 TABLET BY [facility] 00:00: MOUTH [place] 00 EVERY 8 Medical HOURS Branch NEEDED TIZANIDINE 2022-1 Yes [id number] TAKE 1 [facility] 4 mg tablet 0-24 TABLET BY [facility] 00:00: MOUTH [place] 00 EVERY 8 Medical HOURS Branch NEEDED TIZANIDINE 2-1 Yes [id number] TAKE 1 [facility] 4 mg tablet 0-24 TABLET BY [facility] 00:00: MOUTH [place] 00 EVERY 8 Medical HOURS Branch NEEDED TIZANIDINE 2-1 Yes [id number] TAKE 1 [facility] 4 mg tablet 0-24 TABLET BY [facility] 00:00: MOUTH [place] 00 EVERY 8 Medical HOURS Branch NEEDED TIZANIDINE 2022-1 Yes [id number] TAKE 1 [facility] 4 mg tablet 0-24 TABLET BY [facility] 00:00: MOUTH [place] 00 EVERY 8 Medical HOURS Branch NEEDED TIZANIDINE 2022-1 Yes [id number] TAKE 1 [facility] 4 mg tablet 0-24 TABLET BY [facility] 00:00: MOUTH [place] 00 EVERY 8 Medical HOURS Branch NEEDED TIZANIDINE 2022-1 Yes [id number] TAKE 1 [facility] 4 mg tablet 0-24 TABLET BY [facility] 00:00: MOUTH [place] 00 EVERY 8 Medical HOURS Branch NEEDED TIZANIDINE 2022-1 Yes [id number] TAKE 1 [facility] 4 mg tablet 0-24 TABLET BY [facility] 00:00: MOUTH [place] 00 EVERY 8 Medical HOURS Branch NEEDED TIZANIDINE 2-1 Yes [id number] TAKE 1 [facility] 4 mg tablet 0-24 TABLET BY [facility] 00:00: MOUTH [place] 00 EVERY 8 Medical HOURS Branch NEEDED TIZANIDINE 2-1 Yes [id number] TAKE 1 [facility] 4 mg tablet 0-24 TABLET BY [facility] 00:00: MOUTH [place] 00 EVERY 8 Medical HOURS Branch NEEDED TIZANIDINE 2-1 Yes [id number] TAKE 1 [facility] 4 mg tablet 0-24 TABLET BY [facility] 00:00: MOUTH [place] 00 EVERY 8 Medical HOURS Branch NEEDED TIZANIDINE 2-1 Yes [id number] TAKE 1 [facility] 4 mg tablet 0-24 TABLET BY [facility] 00:00: MOUTH [place] 00 EVERY 8 Medical HOURS Branch NEEDED TIZANIDINE 2-1 Yes [id number] TAKE 1 [facility] 4 mg tablet 0-24 TABLET BY [facility] 00:00: MOUTH [place] 00 EVERY 8 Medical HOURS Branch NEEDED TIZANIDINE 2022-1 Yes [id number] TAKE 1 [facility] 4 mg tablet 0-24 TABLET BY [facility] 00:00: MOUTH [place] 00 EVERY 8 Medical HOURS Branch NEEDED TIZANIDINE 2022-1 Yes [id number] TAKE 1 [facility] 4 mg tablet 0-24 TABLET BY [facility] 00:00: MOUTH [place] 00 EVERY 8 Medical HOURS Branch NEEDED TIZANIDINE 2022-1 Yes [id number] TAKE 1 [facility] 4 mg tablet 0-24 TABLET BY [facility] 00:00: MOUTH [place] 00 EVERY 8 Medical HOURS Branch NEEDED TIZANIDINE 2021-08 Yes [id number] TAKE 1 [facility] 4 mg tablet 0-24 TABLET BY [facility] 00:00: MOUTH [place] 00 EVERY 8 Medical HOURS Branch NEEDED TIZANIDINE 2021-08 Yes [id number] TAKE 1 [facility] 4 mg tablet 0-24 TABLET BY [facility] 00:00: MOUTH [place] 00 EVERY 8 Medical HOURS Branch NEEDED TIZANIDINE 2021-08 Yes [id number] TAKE 1 [facility] 4 mg tablet 0-24 TABLET BY [facility] 00:00: MOUTH [place] 00 EVERY 8 Medical HOURS Branch NEEDED TIZANIDINE 2021-08 Yes [id number] TAKE 1 [facility] 4 mg tablet 0-24 TABLET BY [facility] 00:00: MOUTH [place] 00 EVERY 8 Medical HOURS Branch NEEDED TIZANIDINE 2021-08 Yes [id number] TAKE 1 [facility] 4 mg tablet 0-24 TABLET BY [facility] 00:00: MOUTH [place] 00 EVERY 8 Medical HOURS Branch NEEDED TIZANIDINE 2021-08 Yes [id number] TAKE 1 [facility] 4 mg tablet 0-24 TABLET BY [facility] 00:00: MOUTH [place] 00 EVERY 8 Medical HOURS Branch NEEDED TIZANIDINE 2021-08 Yes [id number] TAKE 1 [facility] 4 mg tablet 0-24 TABLET BY [facility] 00:00: MOUTH [place] 00 EVERY 8 Medical HOURS Branch NEEDED TIZANIDINE 2021-08 Yes [id number] TAKE 1 [facility] 4 mg tablet 0-24 TABLET BY [facility] 00:00: MOUTH [place] 00 EVERY 8 Medical HOURS Branch NEEDED ALBUTEROL 2021-08 Yes [id number] INHALE 2 [facility] 90 0-21 PUFFS BY [facility] of mcg/actuati 00:00: [facility] on inhaler 00 EVERY 6 Medica l HOURS Branch NEEDED FOR WHEEZING, SHORTNESS OF BREATH OR BRONCHOSPA SMS ALBUTEROL 2021-08 Yes [id number] INHALE 2 [facility] 90 0-21 PUFFS BY ity of mcg/actuati 00:00: [facility] on inhaler 00 EVERY 6 Medica l HOURS Branch NEEDED FOR WHEEZING, SHORTNESS OF BREATH OR BRONCHOSPA SMS METFORMIN 2021-08 Yes [id number] TAKE 1 [facility] 850 mg 0-21 TABLET BY [facility] of tablet 00:00: MOUTH [place] 00 THREE Medical TIMES Branch DAILY QUINAPRIL 2021-08 Yes [id number] 40mg TAKE 1 [facility] 40 mg 0-21 TABLET BY [facility] tablet 00:00: MOUTH [place] 00 EVERY Medical MORNING Branch GLIPIZIDE 2021-08 Yes [id number] 5mg TAKE 1 [facility] XL 5 mg 24 0-21 TABLET BY [facility] hr tablet 00:00: MOUTH [place] 00 DAILY WITH Medical BREAKFAST Branch amoxicillin 2021-08 Yes [id number] 500mg Take 1 [facility] 500 mg 0-21 tablet by [facility] tablet 00:00: mouth in [place] 00 the Medical morning Branch and 1 tablet in the evening. empaglifloz 2021-08 Yes [id number] 10mg Take 1 [facility] in 0-21 tablet by [facility] ([place]) 00:00: mouth in [place] 10 mg 00 the Medical morning. Branch ALBUTEROL 2021-08 Yes [id number] INHALE 2 [facility] 90 0-21 PUFFS BY [facility] of mcg/actuati 00:00: MOUTH [place] on inhaler 00 EVERY 6 Medica l HOURS Branch NEEDED FOR WHEEZING, SHORTNESS OF BREATH OR BRONCHOSPA SMS QUINAPRIL 2021-08 Yes [id number] 40mg TAKE 1 [facility] 40 mg 0-21 TABLET BY [facility] of tablet 00:00: MOUTH [place] EVERY Medical MORNING Branch amoxicillin 2021-08 Yes [id number] 500mg Take 1 [facility] 500 mg 0-21 tablet by [facility] of tablet 00:00: mouth in [place] the Medical morning Branch and 1 tablet in the evening. empaglifloz 2021-08 Yes [id number] 10mg Take 1 [facility] in 0-21 tablet by [facility] ([place]) 00:00: mouth in [place] 10 mg 00 the Medical morning. Branch ALBUTEROL 2021-08 Yes [id number] INHALE 2 [facility] 90 0-21 PUFFS BY [facility] of mcg/actuati 00:00: MOUTH [place] on inhaler 00 EVERY 6 Medica l HOURS Branch NEEDED FOR WHEEZING, SHORTNESS OF BREATH OR BRONCHOSPA SMS QUINAPRIL 2021-08 Yes [id number] 40mg TAKE 1 [facility] 40 mg 0-21 TABLET BY [facility] of tablet 00:00: MOUTH [place] EVERY Medical MORNING Branch amoxicillin 2021-08 Yes [id number] 500mg Take 1 [facility] 500 mg 0-21 tablet by [facility] of tablet 00:00: mouth in [place] the Medical morning Branch and 1 tablet in the evening. empaglifloz 2021-08 Yes [id number] 10mg Take 1 [facility] in 0-21 tablet by [facility] of ([place]) 00:00: mouth in [place] 10 mg 00 the Medical morning. Branch QUINAPRIL 2021-08 Yes [id number] 40mg TAKE 1 [facility] 40 mg 0-21 TABLET BY [facility] tablet 00:00: MOUTH [place] 00 EVERY Medical MORNING Branch ALBUTEROL 2021-08 Yes [id number] INHALE 2 [facility] 90 0-21 PUFFS BY [facility] of mcg/actuati 00:00: MOUTH [place] on inhaler 00 EVERY 6 Medica l HOURS Branch NEEDED FOR WHEEZING, SHORTNESS OF BREATH OR BRONCHOSPA SMS METFORMIN 2021-08 Yes [id number] TAKE 1 [facility] 850 mg 0-21 TABLET BY [facility] of tablet 00:00: MOUTH [place] 00 THREE Medical TIMES Branch DAILY QUINAPRIL 2021-08 Yes [id number] 40mg TAKE 1 [facility] 40 mg 0-21 TABLET BY [facility] of tablet 00:00: MOUTH [place] 00 EVERY Medical MORNING Branch GLIPIZIDE 2021-08 Yes [id number] 5mg TAKE 1 [facility] XL 5 mg 24 0-21 TABLET BY [facility] of hr tablet 00:00: MOUTH [place] 00 DAILY WITH Medical BREAKFAST Branch amoxicillin 2021-08 Yes [id number] 500mg Take 1 [facility] 500 mg 0-21 tablet by [facility] of tablet 00:00: mouth in [place] 00 the Medical morning Branch and 1 tablet in the evening. empaglifloz 2021-08 Yes [id number] 10mg Take 1 [facility] in 0-21 tablet by [facility] of ([place]) 00:00: mouth in [place] 10 mg 00 the Medical morning. Branch ALBUTEROL 2021-08 Yes [id number] INHALE 2 [facility] 90 0-21 PUFFS BY ity of mcg/actuati 00:00: MOUTH [place] on inhaler 00 EVERY 6 Medica l HOURS Branch NEEDED FOR WHEEZING, SHORTNESS OF BREATH OR BRONCHOSPA SMS METFORMIN 2021-08 Yes [id number] TAKE 1 [facility] 850 mg 0-21 TABLET BY [facility] of tablet 00:00: MOUTH [place] 00 THREE Medical TIMES Branch DAILY QUINAPRIL 2021-08 Yes [id number] 40mg TAKE 1 [facility] 40 mg 0-21 TABLET BY [facility] of tablet 00:00: MOUTH [place] 00 EVERY Medical MORNING Branch GLIPIZIDE 2021-08 Yes [id number] 5mg TAKE 1 [facility] XL 5 mg 24 0-21 TABLET BY [facility] of hr tablet 00:00: MOUTH [place] 00 DAILY WITH Medical BREAKFAST Branch amoxicillin 2021-08 Yes [id number] 500mg Take 1 [facility] 500 mg 0-21 tablet by [facility] of tablet 00:00: mouth in [place] 00 the Medical morning Branch and 1 tablet in the evening. empaglifloz 2021-08 Yes [id number] 10mg Take 1 [facility] in 0-21 tablet by [facility] of ([place]) 00:00: mouth in [place] 10 mg 00 the Medical morning. Branch ALBUTEROL 2021-08 Yes [id number] INHALE 2 [facility] 90 0-21 PUFFS BY it[facility] of mcg/actuati 00:00: MOUTH [place] on inhaler 00 EVERY 6 Medica l HOURS Branch NEEDED FOR WHEEZING, SHORTNESS OF BREATH OR BRONCHOSPA SMS METFORMIN 2021-08 Yes [id number] TAKE 1 [facility] 850 mg 0-21 TABLET BY [facility] of tablet 00:00: MOUTH [place] 00 THREE Medical TIMES Branch DAILY QUINAPRIL 2021-08 Yes [id number] 40mg TAKE 1 [facility] 40 mg 0-21 TABLET BY [facility] of tablet 00:00: MOUTH [place] 00 EVERY Medical MORNING Branch GLIPIZIDE 2021-08 Yes [id number] 5mg TAKE 1 [facility] XL 5 mg 24 0-21 TABLET BY it[facility] of hr tablet 00:00: MOUTH [place] 00 DAILY WITH Medical BREAKFAST Branch amoxicillin 2021-08 Yes [id number] 500mg Take 1 [facility] 500 mg 0-21 tablet by [facility] of tablet 00:00: mouth in [place] 00 the Medical morning Branch and 1 tablet in the evening. empaglifloz 2021-08 Yes [id number] 10mg Take 1 [facility] in 0-21 tablet by [facility] of ([place]) 00:00: mouth in [place] 10 mg 00 the Medical morning. Branch ALBUTEROL 2021-08 Yes [id number] INHALE 2 [facility] 90 0-21 PUFFS BY it[facility] of mcg/actuati 00:00: MOUTH [place] on inhaler 00 EVERY 6 Medica l HOURS Branch NEEDED FOR WHEEZING, SHORTNESS OF BREATH OR BRONCHOSPA SMS METFORMIN 2021-08 Yes [id number] TAKE 1 [facility] 850 mg 0-21 TABLET BY [facility] of tablet 00:00: MOUTH [place] 00 THREE Medical TIMES Branch DAILY QUINAPRIL 2021-08 Yes [id number] 40mg TAKE 1 [facility] 40 mg 0-21 TABLET BY [facility] of tablet 00:00: MOUTH [place] 00 EVERY Medical MORNING Branch GLIPIZIDE 2021-08 Yes [id number] 5mg TAKE 1 [facility] XL 5 mg 24 0-21 TABLET BY [facility] of hr tablet 00:00: MOUTH [place] 00 DAILY WITH Medical BREAKFAST Branch amoxicillin 2021-08 Yes [id number] 500mg Take 1 [facility] 500 mg 0-21 tablet by [facility] of tablet 00:00: mouth in [place] 00 the Medical morning Branch and 1 tablet in the evening. empaglifloz 2021-08 Yes [id number] 10mg Take 1 [facility] in 0-21 tablet by [facility] of ([place]) 00:00: mouth in [place] 10 mg 00 the Medical morning. Branch ALBUTEROL 2021-08 Yes [id number] INHALE 2 [facility] 90 0-21 PUFFS BY ity of mcg/actuati 00:00: MOUTH [place] on inhaler 00 EVERY 6 Medica l HOURS Branch NEEDED FOR WHEEZING, SHORTNESS OF BREATH OR BRONCHOSPA SMS METFORMIN 2021-08 Yes [id number] TAKE 1 [facility] 850 mg 0-21 TABLET BY [facility] of tablet 00:00: MOUTH [place] 00 THREE Medical TIMES Branch DAILY QUINAPRIL 2021-08 Yes [id number] 40mg TAKE 1 [facility] 40 mg 0-21 TABLET BY [facility] of tablet 00:00: MOUTH [place] 00 EVERY Medical MORNING Branch GLIPIZIDE 2021-08 Yes [id number] 5mg TAKE 1 [facility] XL 5 mg 24 0-21 TABLET BY ity of hr tablet 00:00: MOUTH [place] 00 DAILY WITH Medical BREAKFAST Branch amoxicillin 2021-08 Yes [id number] 500mg Take 1 [facility] 500 mg 0-21 tablet by it[facility] of tablet 00:00: mouth in [place] 00 the Medical morning Branch and 1 tablet in the evening. empaglifloz 2021-08 Yes [id number] 10mg Take 1 [facility] in 0-21 tablet by it[facility] of ([place]) 00:00: mouth in [place] 10 mg 00 the Medical morning. Branch ALBUTEROL 2021-08 Yes [id number] INHALE 2 [facility] 90 0-21 PUFFS BY ity of mcg/actuati 00:00: MOUTH [place] on inhaler 00 EVERY 6 Medica l HOURS Branch NEEDED FOR WHEEZING, SHORTNESS OF BREATH OR BRONCHOSPA SMS METFORMIN 2021-08 Yes [id number] TAKE 1 [facility] 850 mg 0-21 TABLET BY ity of tablet 00:00: MOUTH [place] 00 THREE Medical TIMES Branch DAILY QUINAPRIL 2021-08 Yes [id number] 40mg TAKE 1 [facility] 40 mg 0-21 TABLET BY [facility] of tablet 00:00: MOUTH [place] 00 EVERY Medical MORNING Branch GLIPIZIDE 2021-08 Yes [id number] 5mg TAKE 1 [facility] XL 5 mg 24 0-21 TABLET BY [facility] of hr tablet 00:00: MOUTH [place] 00 DAILY WITH Medical BREAKFAST Branch amoxicillin 2021-08 Yes [id number] 500mg Take 1 [facility] 500 mg 0-21 tablet by [facility] of tablet 00:00: mouth in [place] 00 the Medical morning Branch and 1 tablet in the evening. empaglifloz 2021-08 Yes [id number] 10mg Take 1 [facility] in 0-21 tablet by it[facility] of ([place]) 00:00: mouth in [place] 10 mg 00 the Medical morning. Branch ALBUTEROL 2021-08 Yes [id number] INHALE 2 [facility] 90 0-21 PUFFS BY ity of mcg/actuati 00:00: MOUTH [place] on inhaler 00 EVERY 6 Medica l HOURS Branch NEEDED FOR WHEEZING, SHORTNESS OF BREATH OR BRONCHOSPA SMS METFORMIN 2021-08 Yes [id number] TAKE 1 [facility] 850 mg 0-21 TABLET BY ity of tablet 00:00: MOUTH [place] 00 THREE Medical TIMES Branch DAILY QUINAPRIL 2021-08 Yes [id number] 40mg TAKE 1 [facility] 40 mg 0-21 TABLET BY [facility] of tablet 00:00: MOUTH [place] 00 EVERY Medical MORNING Branch GLIPIZIDE 2021-08 Yes [id number] 5mg TAKE 1 [facility] XL 5 mg 24 0-21 TABLET BY it[facility] of hr tablet 00:00: MOUTH [place] 00 DAILY WITH Medical BREAKFAST Branch amoxicillin 2021-08 Yes [id number] 500mg Take 1 [facility] 500 mg 0-21 tablet by [facility] of tablet 00:00: mouth in [place] 00 the Medical morning Branch and 1 tablet in the evening. empaglifloz 2021-08 Yes [id number] 10mg Take 1 [facility] in 0-21 tablet by [facility] of ([place]) 00:00: mouth in [place] 10 mg 00 the Medical morning. Branch ALBUTEROL 2021-08 Yes [id number] INHALE 2 [facility] 90 0-21 PUFFS BY ity of mcg/actuati 00:00: MOUTH [place] on inhaler 00 EVERY 6 Medica l HOURS Branch NEEDED FOR WHEEZING, SHORTNESS OF BREATH OR BRONCHOSPA SMS METFORMIN 2021-08 Yes [id number] TAKE 1 [facility] 850 mg 0-21 TABLET BY it[facility] of tablet 00:00: MOUTH [place] 00 THREE Medical TIMES Branch DAILY QUINAPRIL 2021-08 Yes [id number] 40mg TAKE 1 [facility] 40 mg 0-21 TABLET BY [facility] of tablet 00:00: MOUTH [place] 00 EVERY Medical MORNING Branch GLIPIZIDE 2021-08 Yes [id number] 5mg TAKE 1 [facility] XL 5 mg 24 0-21 TABLET BY ity of hr tablet 00:00: MOUTH [place] 00 DAILY WITH Medical BREAKFAST Branch amoxicillin 2021-08 Yes [id number] 500mg Take 1 [facility] 500 mg 0-21 tablet by [facility] of tablet 00:00: mouth in [place] 00 the Medical morning Branch and 1 tablet in the evening. empaglifloz 2021-08 Yes [id number] 10mg Take 1 [facility] in 0-21 tablet by ity of ([place]) 00:00: mouth in [place] 10 mg 00 the Medical morning. Branch ALBUTEROL 2021-08 Yes [id number] INHALE 2 [facility] 90 0-21 PUFFS BY ity of mcg/actuati 00:00: MOUTH [place] on inhaler 00 EVERY 6 Medica l HOURS Branch NEEDED FOR WHEEZING, SHORTNESS OF BREATH OR BRONCHOSPA SMS METFORMIN 2021-08 Yes [id number] TAKE 1 [facility] nivers 850 mg 0-21 TABLET BY ity of tablet 00:00: MOUTH [place] 00 THREE Medical TIMES Branch DAILY QUINAPRIL 2021-08 Yes [id number] 40mg TAKE 1 [facility] 40 mg 0-21 TABLET BY [facility] of tablet 00:00: MOUTH [place] 00 EVERY Medical MORNING Branch GLIPIZIDE 2021-08 Yes [id number] 5mg TAKE 1 [facility] XL 5 mg 24 0-21 TABLET BY ity of hr tablet 00:00: MOUTH [place] 00 DAILY WITH Medical BREAKFAST Branch amoxicillin 2021-08 Yes [id number] 500mg Take 1 [facility] 500 mg 0-21 tablet by [facility] of tablet 00:00: mouth in [place] 00 the Medical morning Branch and 1 tablet in the evening. empaglifloz 2021-08 Yes [id number] 10mg Take 1 [facility] in 0-21 tablet by it[facility] of ([place]) 00:00: mouth in [place] 10 mg 00 the Medical morning. Branch ALBUTEROL 2021-08 Yes [id number] INHALE 2 [facility] 90 0-21 PUFFS BY ity of mcg/actuati 00:00: MOUTH [place] on inhaler 00 EVERY 6 Medica l HOURS Branch NEEDED FOR WHEEZING, SHORTNESS OF BREATH OR BRONCHOSPA SMS METFORMIN 2021-08 Yes [id number] TAKE 1 [facility] 850 mg 0-21 TABLET BY ity of tablet 00:00: MOUTH [place] 00 THREE Medical TIMES Branch DAILY QUINAPRIL 2021-08 Yes [id number] 40mg TAKE 1 [facility] 40 mg 0-21 TABLET BY [facility] of tablet 00:00: MOUTH [place] 00 EVERY Medical MORNING Branch GLIPIZIDE 2021-08 Yes [id number] 5mg TAKE 1 [facility] XL 5 mg 24 0-21 TABLET BY it[facility] of hr tablet 00:00: MOUTH [place] 00 DAILY WITH Medical BREAKFAST Branch amoxicillin 2021-08 Yes [id number] 500mg Take 1 [facility] 500 mg 0-21 tablet by it[facility] of tablet 00:00: mouth in [place] 00 the Medical morning Branch and 1 tablet in the evening. empaglifloz 2021-08 Yes [id number] 10mg Take 1 [facility] in 0-21 tablet by ity of ([place]) 00:00: mouth in [place] 10 mg 00 the Medical morning. Branch ALBUTEROL 2021-08 Yes [id number] INHALE 2 [facility] 90 0-21 PUFFS BY ity of mcg/actuati 00:00: MOUTH [place] on inhaler 00 EVERY 6 Medica l HOURS Branch NEEDED FOR WHEEZING, SHORTNESS OF BREATH OR BRONCHOSPA SMS METFORMIN 2021-08 Yes [id number] TAKE 1 [facility] 850 mg 0-21 TABLET BY ity of tablet 00:00: MOUTH [place] 00 THREE Medical TIMES Branch DAILY QUINAPRIL 2021-08 Yes [id number] 40mg TAKE 1 [facility] 40 mg 0-21 TABLET BY [facility] of tablet 00:00: MOUTH [place] 00 EVERY Medical MORNING Branch GLIPIZIDE 2021-08 Yes [id number] 5mg TAKE 1 [facility] XL 5 mg 24 0-21 TABLET BY it[facility] of hr tablet 00:00: MOUTH [place] 00 DAILY WITH Medical BREAKFAST Branch amoxicillin 2021-08 Yes [id number] 500mg Take 1 [facility] 500 mg 0-21 tablet by [facility] of tablet 00:00: mouth in [place] 00 the Medical morning Branch and 1 tablet in the evening. empaglifloz 2021-08 Yes [id number] 10mg Take 1 [facility] in 0-21 tablet by it[facility] of ([place]) 00:00: mouth in [place] 10 mg 00 the Medical morning. Branch ALBUTEROL 2021-08 Yes [id number] INHALE 2 [facility] 90 0-21 PUFFS BY ity of mcg/actuati 00:00: MOUTH [place] on inhaler 00 EVERY 6 Medica l HOURS Branch NEEDED FOR WHEEZING, SHORTNESS OF BREATH OR BRONCHOSPA SMS METFORMIN 2021-08 Yes [id number] TAKE 1 [facility] 850 mg 0-21 TABLET BY [facility] of tablet 00:00: MOUTH [place] 00 THREE Medical TIMES Branch DAILY QUINAPRIL 2021-08 Yes [id number] 40mg TAKE 1 [facility] 40 mg 0-21 TABLET BY [facility] of tablet 00:00: MOUTH [place] 00 EVERY Medical MORNING Branch GLIPIZIDE 2021-08 Yes [id number] 5mg TAKE 1 [facility] XL 5 mg 24 0-21 TABLET BY it[facility] of hr tablet 00:00: MOUTH [place] 00 DAILY WITH Medical BREAKFAST Branch amoxicillin 2021-08 Yes [id number] 500mg Take 1 [facility] 500 mg 0-21 tablet by [facility] of tablet 00:00: mouth in [place] 00 the Medical morning Branch and 1 tablet in the evening. empaglifloz 2021-08 Yes [id number] 10mg Take 1 [facility] in 0-21 tablet by it[facility] of ([place]) 00:00: mouth in [place] 10 mg 00 the Medical morning. Branch ALBUTEROL 2021-08 Yes [id number] INHALE 2 [facility] 90 0-21 PUFFS BY ity of mcg/actuati 00:00: MOUTH [place] on inhaler 00 EVERY 6 Medica l HOURS Branch NEEDED FOR WHEEZING, SHORTNESS OF BREATH OR BRONCHOSPA SMS METFORMIN 2021-08 Yes [id number] TAKE 1 [facility] 850 mg 0-21 TABLET BY it[facility] of tablet 00:00: MOUTH [place] 00 THREE Medical TIMES Branch DAILY QUINAPRIL 2021-08 Yes [id number] 40mg TAKE 1 [facility] 40 mg 0-21 TABLET BY [facility] of tablet 00:00: MOUTH [place] 00 EVERY Medical MORNING Branch GLIPIZIDE 2021-08 Yes [id number] 5mg TAKE 1 [facility] XL 5 mg 24 0-21 TABLET BY it[facility] of hr tablet 00:00: MOUTH [place] 00 DAILY WITH Medical BREAKFAST Branch amoxicillin 2021-08 Yes [id number] 500mg Take 1 [facility] 500 mg 0-21 tablet by [facility] of tablet 00:00: mouth in [place] 00 the Medical morning Branch and 1 tablet in the evening. empaglifloz 2021-08 Yes [id number] 10mg Take 1 [facility] in 0-21 tablet by it[facility] of ([place]) 00:00: mouth in [place] 10 mg 00 the Medical morning. Branch ALBUTEROL 2021-08 Yes [id number] INHALE 2 [facility] 90 0-21 PUFFS BY ity of mcg/actuati 00:00: MOUTH [place] on inhaler 00 EVERY 6 Medica l HOURS Branch NEEDED FOR WHEEZING, SHORTNESS OF BREATH OR BRONCHOSPA SMS METFORMIN 2021-08 Yes [id number] TAKE 1 [facility] 850 mg 0-21 TABLET BY ity of tablet 00:00: MOUTH [place] 00 THREE Medical TIMES Branch DAILY QUINAPRIL 2021-08 Yes [id number] 40mg TAKE 1 [facility] 40 mg 0-21 TABLET BY ity of tablet 00:00: MOUTH [place] 00 EVERY Medical MORNING Branch GLIPIZIDE 2021-08 Yes [id number] 5mg TAKE 1 [facility] XL 5 mg 24 0-21 TABLET BY ity of hr tablet 00:00: MOUTH [place] 00 DAILY WITH Medical BREAKFAST Branch amoxicillin 2021-08 Yes [id number] 500mg Take 1 [facility] 500 mg 0-21 tablet by it[facility] of tablet 00:00: mouth in [place] 00 the Medical morning Branch and 1 tablet in the evening. empaglifloz 2021-08 Yes [id number] 10mg Take 1 [facility] in 0-21 tablet by ity of ([place]) 00:00: mouth in [place] 10 mg 00 the Medical morning. Branch ALBUTEROL 2021-08 Yes [id number] INHALE 2 [facility] 90 0-21 PUFFS BY ity of mcg/actuati 00:00: MOUTH [place] on inhaler 00 EVERY 6 Medica l HOURS Branch NEEDED FOR WHEEZING, SHORTNESS OF BREATH OR BRONCHOSPA SMS METFORMIN 2021-08 Yes [id number] TAKE 1 [facility] 850 mg 0-21 TABLET BY [facility] of tablet 00:00: MOUTH [place] 00 THREE Medical TIMES Branch DAILY QUINAPRIL 2021-08 Yes [id number] 40mg TAKE 1 [facility] 40 mg 0-21 TABLET BY it[facility] of tablet 00:00: MOUTH [place] 00 EVERY Medical MORNING Branch GLIPIZIDE 2021-08 Yes [id number] 5mg TAKE 1 [facility] XL 5 mg 24 0-21 TABLET BY it[facility] of hr tablet 00:00: MOUTH [place] 00 DAILY WITH Medical BREAKFAST Branch amoxicillin 2021-08 Yes [id number] 500mg Take 1 [facility] 500 mg 0-21 tablet by [facility] of tablet 00:00: mouth in [place] 00 the Medical morning Branch and 1 tablet in the evening. empaglifloz 2021-08 Yes [id number] 10mg Take 1 [facility] in 0-21 tablet by it[facility] of ([place]) 00:00: mouth in [place] 10 mg 00 the Medical morning. Branch ALBUTEROL 2021-08 Yes [id number] INHALE 2 [facility] 90 0-21 PUFFS BY ity of mcg/actuati 00:00: MOUTH [place] on inhaler 00 EVERY 6 Medica l HOURS Branch NEEDED FOR WHEEZING, SHORTNESS OF BREATH OR BRONCHOSPA SMS METFORMIN 2021-08 Yes [id number] TAKE 1 [facility] 850 mg 0-21 TABLET BY it[facility] of tablet 00:00: MOUTH [place] 00 THREE Medical TIMES Branch DAILY QUINAPRIL 2021-08 Yes [id number] 40mg TAKE 1 [facility] 40 mg 0-21 TABLET BY [facility] of tablet 00:00: MOUTH [place] 00 EVERY Medical MORNING Branch GLIPIZIDE 2021-08 Yes [id number] 5mg TAKE 1 [facility] XL 5 mg 24 0-21 TABLET BY it[facility] of hr tablet 00:00: MOUTH [place] 00 DAILY WITH Medical BREAKFAST Branch amoxicillin 2021-08 Yes [id number] 500mg Take 1 [facility] 500 mg 0-21 tablet by [facility] of tablet 00:00: mouth in [place] 00 the Medical morning Branch and 1 tablet in the evening. empaglifloz 2021-08 Yes [id number] 10mg Take 1 [facility] in 0-21 tablet by it[facility] of ([place]) 00:00: mouth in [place] 10 mg 00 the Medical morning. Branch ALBUTEROL 2021-08 Yes [id number] INHALE 2 [facility] 90 0-21 PUFFS BY [facility] mcg/actuati 00:00: MOUTH [place] on inhaler 00 EVERY 6 Medica l HOURS Branch NEEDED FOR WHEEZING, SHORTNESS OF BREATH OR BRONCHOSPA SMS METFORMIN 2021-08 Yes [id number] TAKE 1 [facility] 850 mg 0-21 TABLET BY [facility] tablet 00:00: MOUTH [place] 00 THREE Medical TIMES Branch DAILY QUINAPRIL 2021-08 Yes [id number] 40mg TAKE 1 [facility] 40 mg 0-21 TABLET BY [facility] tablet 00:00: MOUTH [place] 00 EVERY Medical MORNING Branch GLIPIZIDE 2021-08 Yes [id number] 5mg TAKE 1 [facility] XL 5 mg 24 0-21 TABLET BY [facility] hr tablet 00:00: MOUTH [place] 00 DAILY WITH Medical BREAKFAST Branch amoxicillin 2021-08 Yes [id number] 500mg Take 1 [facility] 500 mg 0-21 tablet by [facility] tablet 00:00: mouth in [place] 00 the Medical morning Branch and 1 tablet in the evening. empaglifloz 2021-08 Yes [id number] 10mg Take 1 [facility] in 0-21 tablet by [facility] ([place]) 00:00: mouth in [place] 10 mg 00 the Medical morning. Branch ALBUTEROL 2021-08 Yes [id number] INHALE 2 [facility] 90 0-21 PUFFS BY [facility] of mcg/actuati 00:00: MOUTH [place] on inhaler 00 EVERY 6 Medica l HOURS Branch NEEDED FOR WHEEZING, SHORTNESS OF BREATH OR BRONCHOSPA SMS METFORMIN 2021-08 Yes [id number] TAKE 1 [facility] 850 mg 0-21 TABLET BY [facility] tablet 00:00: MOUTH [place] 00 THREE Medical TIMES Branch DAILY QUINAPRIL 2021-08 Yes [id number] 40mg TAKE 1 [facility] 40 mg 0-21 TABLET BY [facility] tablet 00:00: MOUTH [place] 00 EVERY Medical MORNING Branch GLIPIZIDE 2021-08 Yes [id number] 5mg TAKE 1 [facility] XL 5 mg 24 0-21 TABLET BY [facility] hr tablet 00:00: MOUTH [place] 00 DAILY WITH Medical BREAKFAST Branch amoxicillin 2021-08 Yes [id number] 500mg Take 1 [facility] 500 mg 0-21 tablet by [facility] tablet 00:00: mouth in [place] 00 the Medical morning Branch and 1 tablet in the evening. empaglifloz 2021-08 Yes [id number] 10mg Take 1 [facility] in 0-21 tablet by [facility] ([place]) 00:00: mouth in [place] 10 mg 00 the Medical morning. Branch ALBUTEROL 2021-08 Yes [id number] INHALE 2 [facility] 90 0-21 PUFFS BY [facility] of mcg/actuati 00:00: MOUTH [place] on inhaler 00 EVERY 6 Medica l HOURS Branch NEEDED FOR WHEEZING, SHORTNESS OF BREATH OR BRONCHOSPA SMS METFORMIN 2021-08 Yes [id number] TAKE 1 [facility] 850 mg 0-21 TABLET BY [facility] tablet 00:00: MOUTH [place] 00 THREE Medical TIMES Branch DAILY QUINAPRIL 2021-08 Yes [id number] 40mg TAKE 1 [facility] 40 mg 0-21 TABLET BY [facility] tablet 00:00: MOUTH [place] 00 EVERY Medical MORNING Branch GLIPIZIDE 2021-08 Yes [id number] 5mg TAKE 1 [facility] XL 5 mg 24 0-21 TABLET BY [facility] hr tablet 00:00: MOUTH [place] 00 DAILY WITH Medical BREAKFAST Branch amoxicillin 2021-08 Yes [id number] 500mg Take 1 [facility] 500 mg 0-21 tablet by [facility] tablet 00:00: mouth in [place] 00 the Medical morning Branch and 1 tablet in the evening. empaglifloz 2021-08 Yes [id number] 10mg Take 1 [facility] in 0-21 tablet by [facility] ([place]) 00:00: mouth in [place] 10 mg 00 the Medical morning. Branch ALBUTEROL 2021-08 Yes [id number] INHALE 2 [facility] 90 0-21 PUFFS BY [facility] of mcg/actuati 00:00: MOUTH [place] on inhaler 00 EVERY 6 Medica l HOURS Branch NEEDED FOR WHEEZING, SHORTNESS OF BREATH OR BRONCHOSPA SMS METFORMIN 2021-08 Yes [id number] TAKE 1 [facility] 850 mg 0-21 TABLET BY [facility] tablet 00:00: MOUTH [place] 00 THREE Medical TIMES Branch DAILY QUINAPRIL 2021-08 Yes [id number] 40mg TAKE 1 [facility] 40 mg 0-21 TABLET BY [facility] tablet 00:00: MOUTH [place] 00 EVERY Medical MORNING Branch GLIPIZIDE 2021-08 Yes [id number] 5mg TAKE 1 [facility] XL 5 mg 24 0-21 TABLET BY [facility] hr tablet 00:00: MOUTH [place] 00 DAILY WITH Medical BREAKFAST Branch amoxicillin 2021-08 Yes [id number] 500mg Take 1 [facility] 500 mg 0-21 tablet by [facility] tablet 00:00: mouth in [place] 00 the Medical morning Branch and 1 tablet in the evening. empaglifloz 2021-08 Yes [id number] 10mg Take 1 [facility] in 0-21 tablet by [facility] ([place]) 00:00: mouth in [place] 10 mg 00 the Medical morning. Branch ALBUTEROL 2021-08 Yes [id number] INHALE 2 [facility] 90 0-21 PUFFS BY [facility] of mcg/actuati 00:00: MOUTH [place] on inhaler 00 EVERY 6 Medica l HOURS Branch NEEDED FOR WHEEZING, SHORTNESS OF BREATH OR BRONCHOSPA SMS METFORMIN 2021-08 Yes [id number] TAKE 1 [facility] 850 mg 0-21 TABLET BY [facility] tablet 00:00: MOUTH [place] 00 THREE Medical TIMES Branch DAILY QUINAPRIL 2021-08 Yes [id number] 40mg TAKE 1 [facility] 40 mg 0-21 TABLET BY [facility] tablet 00:00: MOUTH [place] 00 EVERY Medical MORNING Branch GLIPIZIDE 2021-08 Yes [id number] 5mg TAKE 1 [facility] XL 5 mg 24 0-21 TABLET BY [facility] hr tablet 00:00: MOUTH [place] 00 DAILY WITH Medical BREAKFAST Branch amoxicillin 2021-08 Yes [id number] 500mg Take 1 [facility] 500 mg 0-21 tablet by [facility] tablet 00:00: mouth in [place] 00 the Medical morning Branch and 1 tablet in the evening. empaglifloz 2021-08 Yes [id number] 10mg Take 1 [facility] in 0-21 tablet by [facility] ([place]) 00:00: mouth in [place] 10 mg 00 the Medical morning. Branch ALBUTEROL 2021-08 Yes [id number] INHALE 2 [facility] 90 0-21 PUFFS BY [facility] of mcg/actuati 00:00: MOUTH [place] on inhaler 00 EVERY 6 Medica l HOURS Branch NEEDED FOR WHEEZING, SHORTNESS OF BREATH OR BRONCHOSPA SMS METFORMIN 2021-08 Yes [id number] TAKE 1 [facility] 850 mg 0-21 TABLET BY [facility] of tablet 00:00: MOUTH [place] 00 THREE Medical TIMES Branch DAILY QUINAPRIL 2021-08 Yes [id number] 40mg TAKE 1 [facility] 40 mg 0-21 TABLET BY [facility] tablet 00:00: MOUTH [place] 00 EVERY Medical MORNING Branch GLIPIZIDE 2021-08 Yes [id number] 5mg TAKE 1 [facility] XL 5 mg 24 0-21 TABLET BY [facility] hr tablet 00:00: MOUTH [place] 00 DAILY WITH Medical BREAKFAST Branch amoxicillin 2021-08 Yes [id number] 500mg Take 1 [facility] 500 mg 0-21 tablet by [facility] tablet 00:00: mouth in [place] 00 the Medical morning Branch and 1 tablet in the evening. empaglifloz 2021-08 Yes [id number] 10mg Take 1 [facility] in 0-21 tablet by [facility] ([place]) 00:00: mouth in [place] 10 mg 00 the Medical morning. Branch ALBUTEROL 2021-08 Yes [id number] INHALE 2 [facility] 90 0-21 PUFFS BY [facility] of mcg/actuati 00:00: MOUTH [place] on inhaler 00 EVERY 6 Medica l HOURS Branch NEEDED FOR WHEEZING, SHORTNESS OF BREATH OR BRONCHOSPA SMS METFORMIN 2021-08 Yes [id number] TAKE 1 [facility] 850 mg 0-21 TABLET BY [facility] tablet 00:00: MOUTH [place] 00 THREE Medical TIMES Branch DAILY QUINAPRIL 2021-08 Yes [id number] 40mg TAKE 1 [facility] 40 mg 0-21 TABLET BY [facility] tablet 00:00: MOUTH [place] 00 EVERY Medical MORNING Branch GLIPIZIDE 2021-08 Yes [id number] 5mg TAKE 1 [facility] XL 5 mg 24 0-21 TABLET BY [facility] hr tablet 00:00: MOUTH [place] 00 DAILY WITH Medical BREAKFAST Branch amoxicillin 2021-08 Yes [id number] 500mg Take 1 [facility] 500 mg 0-21 tablet by [facility] of tablet 00:00: mouth in [place] 00 the Medical morning Branch and 1 tablet in the evening. empaglifloz 2021-08 Yes [id number] 10mg Take 1 [facility] in 0-21 tablet by [facility] of ([place]) 00:00: mouth in [place] 10 mg 00 the Medical morning. Branch ALBUTEROL 2021-08 Yes [id number] INHALE 2 [facility] 90 0-21 PUFFS BY [facility] of mcg/actuati 00:00: MOUTH [place] on inhaler 00 EVERY 6 Medica l HOURS Branch NEEDED FOR WHEEZING, SHORTNESS OF BREATH OR BRONCHOSPA SMS METFORMIN 2021-08 Yes [id number] TAKE 1 [facility] 850 mg 0-21 TABLET BY [facility] tablet 00:00: MOUTH [place] 00 THREE Medical TIMES Branch DAILY QUINAPRIL 2021-08 Yes [id number] 40mg TAKE 1 [facility] 40 mg 0-21 TABLET BY [facility] tablet 00:00: MOUTH [place] 00 EVERY Medical MORNING Branch GLIPIZIDE 2021-08 Yes [id number] 5mg TAKE 1 [facility] XL 5 mg 24 0-21 TABLET BY [facility] hr tablet 00:00: MOUTH [place] 00 DAILY WITH Medical BREAKFAST Branch amoxicillin 2021-08 Yes [id number] 500mg Take 1 [facility] 500 mg 0-21 tablet by [facility] of tablet 00:00: mouth in [place] 00 the Medical morning Branch and 1 tablet in the evening. empaglifloz 2021-08 Yes [id number] 10mg Take 1 [facility] in 0-21 tablet by [facility] of ([place]) 00:00: mouth in [place] 10 mg 00 the Medical morning. Branch ALBUTEROL 2021-08 Yes [id number] INHALE 2 [facility] 90 0-21 PUFFS BY [facility] of mcg/actuati 00:00: MOUTH [place] on inhaler 00 EVERY 6 Medica l HOURS Branch NEEDED FOR WHEEZING, SHORTNESS OF BREATH OR BRONCHOSPA SMS METFORMIN 2021-08 Yes [id number] TAKE 1 [facility] 850 mg 0-21 TABLET BY [facility] of tablet 00:00: MOUTH [place] 00 THREE Medical TIMES Branch DAILY QUINAPRIL 2021-08 Yes [id number] 40mg TAKE 1 [facility] 40 mg 0-21 TABLET BY [facility] of tablet 00:00: MOUTH [place] 00 EVERY Medical MORNING Branch GLIPIZIDE 2021-08 Yes [id number] 5mg TAKE 1 [facility] XL 5 mg 24 0-21 TABLET BY [facility] of hr tablet 00:00: MOUTH [place] 00 DAILY WITH Medical BREAKFAST Branch amoxicillin 2021-08 Yes [id number] 500mg Take 1 [facility] 500 mg 0-21 tablet by [facility] of tablet 00:00: mouth in [place] 00 the Medical morning Branch and 1 tablet in the evening. empaglifloz 2021-08 Yes [id number] 10mg Take 1 [facility] in 0-21 tablet by [facility] of ([place]) 00:00: mouth in [place] 10 mg 00 the Medical morning. Branch ALBUTEROL 2021-08 Yes [id number] INHALE 2 [facility] 90 0-21 PUFFS BY [facility] of mcg/actuati 00:00: MOUTH [place] on inhaler 00 EVERY 6 Medica l HOURS Branch NEEDED FOR WHEEZING, SHORTNESS OF BREATH OR BRONCHOSPA SMS METFORMIN 2021-08 Yes [id number] TAKE 1 [facility] 850 mg 0-21 TABLET BY [facility] of tablet 00:00: MOUTH [place] 00 THREE Medical TIMES Branch DAILY QUINAPRIL 2021-08 Yes [id number] 40mg TAKE 1 [facility] 40 mg 0-21 TABLET BY [facility] of tablet 00:00: MOUTH [place] 00 EVERY Medical MORNING Branch GLIPIZIDE 2021-08 Yes [id number] 5mg TAKE 1 [facility] XL 5 mg 24 0-21 TABLET BY [facility] of hr tablet 00:00: MOUTH [place] 00 DAILY WITH Medical BREAKFAST Branch amoxicillin 2021-08 Yes [id number] 500mg Take 1 [facility] 500 mg 0-21 tablet by [facility] of tablet 00:00: mouth in [place] 00 the Medical morning Branch and 1 tablet in the evening. empaglifloz 2021-08 Yes [id number] 10mg Take 1 [facility] in 0-21 tablet by [facility] of ([place]) 00:00: mouth in [place] 10 mg 00 the Medical morning. Branch ALBUTEROL 2021-08 Yes [id number] INHALE 2 [facility] 90 0-21 PUFFS BY [facility] of mcg/actuati 00:00: MOUTH [place] on inhaler 00 EVERY 6 Medica l HOURS Branch NEEDED FOR WHEEZING, SHORTNESS OF BREATH OR BRONCHOSPA SMS METFORMIN 2021-08 Yes [id number] TAKE 1 [facility] 850 mg 0-21 TABLET BY [facility] of tablet 00:00: MOUTH [place] 00 THREE Medical TIMES Branch DAILY QUINAPRIL 2021-08 Yes [id number] 40mg TAKE 1 [facility] 40 mg 0-21 TABLET BY [facility] of tablet 00:00: MOUTH [place] 00 EVERY Medical MORNING Branch GLIPIZIDE 2021-08 Yes [id number] 5mg TAKE 1 [facility] XL 5 mg 24 0-21 TABLET BY [facility] hr tablet 00:00: MOUTH [place] 00 DAILY WITH Medical BREAKFAST Branch amoxicillin 2021-08 Yes [id number] 500mg Take 1 [facility] 500 mg 0-21 tablet by [facility] of tablet 00:00: mouth in [place] 00 the Medical morning Branch and 1 tablet in the evening. empaglifloz 2021-08 Yes [id number] 10mg Take 1 [facility] in 0-21 tablet by [facility] of ([place]) 00:00: mouth in [place] 10 mg 00 the Medical morning. Branch ALBUTEROL 2021-08 Yes [id number] INHALE 2 [facility] 90 0-21 PUFFS BY [facility] of mcg/actuati 00:00: MOUTH [place] on inhaler 00 EVERY 6 Medica l HOURS Branch NEEDED FOR WHEEZING, SHORTNESS OF BREATH OR BRONCHOSPA SMS METFORMIN 2021-08 Yes [id number] TAKE 1 [facility] 850 mg 0-21 TABLET BY [facility] of tablet 00:00: MOUTH [place] 00 THREE Medical TIMES Branch DAILY QUINAPRIL 2021-08 Yes [id number] 40mg TAKE 1 [facility] 40 mg 0-21 TABLET BY [facility] of tablet 00:00: MOUTH [place] 00 EVERY Medical MORNING Branch GLIPIZIDE 2021-08 Yes [id number] 5mg TAKE 1 [facility] XL 5 mg 24 0-21 TABLET BY [facility] of hr tablet 00:00: MOUTH [place] 00 DAILY WITH Medical BREAKFAST Branch amoxicillin 2021-08 Yes [id number] 500mg Take 1 [facility] 500 mg 0-21 tablet by [facility] of tablet 00:00: mouth in [place] 00 the Medical morning Branch and 1 tablet in the evening. empaglifloz 2021-08 Yes [id number] 10mg Take 1 [facility] in 0-21 tablet by [facility] of ([place]) 00:00: mouth in [place] 10 mg 00 the Medical morning. Branch ALBUTEROL 2021-08 Yes [id number] INHALE 2 [facility] 90 0-21 PUFFS BY [facility] of mcg/actuati 00:00: MOUTH [place] on inhaler 00 EVERY 6 Medica l HOURS Branch NEEDED FOR WHEEZING, SHORTNESS OF BREATH OR BRONCHOSPA SMS METFORMIN 2021-08 Yes [id number] TAKE 1 [facility] 850 mg 0-21 TABLET BY [facility] of tablet 00:00: MOUTH [place] 00 THREE Medical TIMES Branch DAILY GLIPIZIDE 2021-08 Yes [id number] 5mg TAKE 1 [facility] XL 5 mg 24 0-21 TABLET BY [facility] of hr tablet 00:00: MOUTH [place] 00 DAILY WITH Medical BREAKFAST Branch amoxicillin 2021-08 Yes [id number] 500mg Take 1 [facility] 500 mg 0-21 tablet by [facility] of tablet 00:00: mouth in [place] 00 the Medical morning Branch and 1 tablet in the evening. empaglifloz 2021-08 Yes [id number] 10mg Take 1 [facility] in 0-21 tablet by [facility] of ([place]) 00:00: mouth in [place] 10 mg 00 the Medical morning. Branch ALBUTEROL 2021-08 Yes [id number] INHALE 2 [facility] 90 0-21 PUFFS BY [facility] of mcg/actuati 00:00: MOUTH [place] on inhaler 00 EVERY 6 Medica l HOURS Branch NEEDED FOR WHEEZING, SHORTNESS OF BREATH OR BRONCHOSPA SMS METFORMIN 2021-08 Yes [id number] TAKE 1 [facility] 850 mg 0-21 TABLET BY [facility] of tablet 00:00: MOUTH [place] 00 THREE Medical TIMES Branch DAILY GLIPIZIDE 2021-08 Yes [id number] 5mg TAKE 1 [facility] XL 5 mg 24 0-21 TABLET BY [facility] of hr tablet 00:00: MOUTH [place] 00 DAILY WITH Medical BREAKFAST Branch amoxicillin 2021-08 Yes [id number] 500mg Take 1 [facility] 500 mg 0-21 tablet by [facility] of tablet 00:00: mouth in [place] 00 the Medical morning Branch and 1 tablet in the evening. empaglifloz 2021-08 Yes [id number] 10mg Take 1 [facility] in 0-21 tablet by [facility] of ([place]) 00:00: mouth in [place] 10 mg 00 the Medical morning. Branch ALBUTEROL 2021-08 Yes [id number] INHALE 2 [facility] 90 0-21 PUFFS BY [facility] of mcg/actuati 00:00: MOUTH [place] on inhaler 00 EVERY 6 Medica l HOURS Branch NEEDED FOR WHEEZING, SHORTNESS OF BREATH OR BRONCHOSPA SMS METFORMIN 2021-08 Yes [id number] TAKE 1 [facility] 850 mg 0-21 TABLET BY [facility] of tablet 00:00: MOUTH [place] 00 THREE Medical TIMES Branch DAILY GLIPIZIDE 2021-08 Yes [id number] 5mg TAKE 1 [facility] XL 5 mg 24 0-21 TABLET BY [facility] of hr tablet 00:00: MOUTH [place] 00 DAILY WITH Medical BREAKFAST Branch amoxicillin 2021-08 Yes [id number] 500mg Take 1 [facility] 500 mg 0-21 tablet by [facility] of tablet 00:00: mouth in [place] 00 the Medical morning Branch and 1 tablet in the evening. empaglifloz 2021-08 Yes [id number] 10mg Take 1 [facility] in 0-21 tablet by [facility] of ([place]) 00:00: mouth in [place] 10 mg 00 the Medical morning. Branch ALBUTEROL 2021-08 Yes [id number] INHALE 2 [facility] 90 0-21 PUFFS BY [facility] of mcg/actuati 00:00: MOUTH [place] on inhaler 00 EVERY 6 Medica l HOURS Branch NEEDED FOR WHEEZING, SHORTNESS OF BREATH OR BRONCHOSPA SMS METFORMIN 2021-08 Yes [id number] TAKE 1 [facility] 850 mg 0-21 TABLET BY [facility] of tablet 00:00: MOUTH [place] 00 THREE Medical TIMES Branch DAILY GLIPIZIDE 2021-08 Yes [id number] 5mg TAKE 1 [facility] XL 5 mg 24 0-21 TABLET BY [facility] of hr tablet 00:00: MOUTH [place] 00 DAILY WITH Medical BREAKFAST Branch amoxicillin 2021-08 Yes [id number] 500mg Take 1 [facility] 500 mg 0-21 tablet by [facility] of tablet 00:00: mouth in [place] 00 the Medical morning Branch and 1 tablet in the evening. empaglifloz 2021-08 Yes [id number] 10mg Take 1 [facility] in 0-21 tablet by [facility] of ([place]) 00:00: mouth in [place] 10 mg 00 the Medical morning. Branch ALBUTEROL 2021-08 Yes [id number] INHALE 2 [facility] 90 0-21 PUFFS BY [facility] of mcg/actuati 00:00: MOUTH [place] on inhaler 00 EVERY 6 Medica l HOURS Branch NEEDED FOR WHEEZING, SHORTNESS OF BREATH OR BRONCHOSPA SMS METFORMIN 2021-08 Yes [id number] TAKE 1 [facility] 850 mg 0-21 TABLET BY [facility] of tablet 00:00: MOUTH [place] 00 THREE Medical TIMES Branch DAILY GLIPIZIDE 2021-08 Yes [id number] 5mg TAKE 1 [facility] XL 5 mg 24 0-21 TABLET BY [facility] of hr tablet 00:00: MOUTH [place] 00 DAILY WITH Medical BREAKFAST Branch amoxicillin 2021-08 Yes [id number] 500mg Take 1 [facility] 500 mg 0-21 tablet by [facility] of tablet 00:00: mouth in [place] 00 the Medical morning Branch and 1 tablet in the evening. empaglifloz 2021-08 Yes [id number] 10mg Take 1 [facility] in 0-21 tablet by [facility] of ([place]) 00:00: mouth in [place] 10 mg 00 the Medical morning. Branch ALBUTEROL 2021-08 Yes [id number] INHALE 2 [facility] 90 0-21 PUFFS BY [facility] of mcg/actuati 00:00: MOUTH [place] on inhaler 00 EVERY 6 Medica l HOURS Branch NEEDED FOR WHEEZING, SHORTNESS OF BREATH OR BRONCHOSPA SMS METFORMIN 2021-08 Yes [id number] TAKE 1 [facility] 850 mg 0-21 TABLET BY [facility] of tablet 00:00: MOUTH [place] 00 THREE Medical TIMES Branch DAILY GLIPIZIDE 2021-08 Yes [id number] 5mg TAKE 1 [facility] XL 5 mg 24 0-21 TABLET BY [facility] of hr tablet 00:00: MOUTH [place] 00 DAILY WITH Medical BREAKFAST Branch amoxicillin 2021-08 Yes [id number] 500mg Take 1 [facility] 500 mg 0-21 tablet by [facility] of tablet 00:00: mouth in [place] 00 the Medical morning Branch and 1 tablet in the evening. empaglifloz 2021-08 Yes [id number] 10mg Take 1 [facility] in 0-21 tablet by [facility] of ([place]) 00:00: mouth in [place] 10 mg the Medical morning. Branch ALBUTEROL 2021-08 Yes [id number] INHALE 2 [facility] 90 0-21 PUFFS BY [facility] of mcg/actuati 00:00: MOUTH [place] on inhaler 00 EVERY 6 Medica l HOURS Branch NEEDED FOR WHEEZING, SHORTNESS OF BREATH OR BRONCHOSPA SMS METFORMIN 2021-08 Yes [id number] TAKE 1 [facility] 850 mg 0-21 TABLET BY [facility] of tablet 00:00: MOUTH [place] 00 THREE Medical TIMES Branch DAILY GLIPIZIDE 2021-08 Yes [id number] 5mg TAKE 1 [facility] XL 5 mg 24 0-21 TABLET BY [facility] of hr tablet 00:00: MOUTH [place] 00 DAILY WITH Medical BREAKFAST Branch amoxicillin 2021-08 Yes [id number] 500mg Take 1 [facility] 500 mg 0-21 tablet by [facility] of tablet 00:00: mouth in [place] 00 the Medical morning Branch and 1 tablet in the evening. empaglifloz 2021-08 Yes [id number] 10mg Take 1 [facility] in 0-21 tablet by [facility] of ([place]) 00:00: mouth in [place] 10 mg 00 the Medical morning. Branch ALBUTEROL 2021-08 Yes [id number] INHALE 2 [facility] 90 0-21 PUFFS BY [facility] of mcg/actuati 00:00: MOUTH [place] on inhaler 00 EVERY 6 Medica l HOURS Branch NEEDED FOR WHEEZING, SHORTNESS OF BREATH OR BRONCHOSPA SMS METFORMIN 2021-08 Yes [id number] TAKE 1 [facility] 850 mg 0-21 TABLET BY [facility] of tablet 00:00: MOUTH [place] 00 THREE Medical TIMES Branch DAILY GLIPIZIDE 2021-08 Yes [id number] 5mg TAKE 1 [facility] XL 5 mg 24 0-21 TABLET BY [facility] of hr tablet 00:00: MOUTH [place] 00 DAILY WITH Medical BREAKFAST Branch amoxicillin 2021-08 Yes [id number] 500mg Take 1 [facility] 500 mg 0-21 tablet by [facility] of tablet 00:00: mouth in [place] 00 the Medical morning Branch and 1 tablet in the evening. empaglifloz 2021-08 Yes [id number] 10mg Take 1 [facility] in 0-21 tablet by [facility] of ([place]) 00:00: mouth in [place] 10 mg 00 the Medical morning. Branch ALBUTEROL 2021-08 Yes [id number] INHALE 2 [facility] 90 0-21 PUFFS BY [facility] of mcg/actuati 00:00: MOUTH [place] on inhaler 00 EVERY 6 Medica l HOURS Branch NEEDED FOR WHEEZING, SHORTNESS OF BREATH OR BRONCHOSPA SMS METFORMIN 2021-08 Yes [id number] TAKE 1 [facility] 850 mg 0-21 TABLET BY [facility] of tablet 00:00: MOUTH [place] 00 THREE Medical TIMES Branch DAILY GLIPIZIDE 2021-08 Yes [id number] 5mg TAKE 1 [facility] XL 5 mg 24 0-21 TABLET BY [facility] of hr tablet 00:00: MOUTH [place] 00 DAILY WITH Medical BREAKFAST Branch amoxicillin 2021-08 Yes [id number] 500mg Take 1 [facility] 500 mg 0-21 tablet by [facility] of tablet 00:00: mouth in [place] 00 the Medical morning Branch and 1 tablet in the evening. empaglifloz 2021-08 Yes [id number] 10mg Take 1 [facility] in 0-21 tablet by [facility] of ([place]) 00:00: mouth in [place] 10 mg 00 the Medical morning. Branch ALBUTEROL 2021-08 Yes [id number] INHALE 2 [facility] 90 0-21 PUFFS BY [facility] of mcg/actuati 00:00: MOUTH [place] on inhaler 00 EVERY 6 Medica l HOURS Branch NEEDED FOR WHEEZING, SHORTNESS OF BREATH OR BRONCHOSPA SMS METFORMIN 2021-08 Yes [id number] TAKE 1 [facility] 850 mg 0-21 TABLET BY [facility] of tablet 00:00: MOUTH [place] 00 THREE Medical TIMES Branch DAILY GLIPIZIDE 2021-08 Yes [id number] 5mg TAKE 1 [facility] XL 5 mg 24 0-21 TABLET BY [facility] of hr tablet 00:00: MOUTH [place] 00 DAILY WITH Medical BREAKFAST Branch amoxicillin 2021-08 Yes [id number] 500mg Take 1 [facility] 500 mg 0-21 tablet by [facility] of tablet 00:00: mouth in [place] the Medical morning Branch and 1 tablet in the evening. empaglifloz 2021-08 Yes [id number] 10mg Take 1 [facility] in 0-21 tablet by [facility] of ([place]) 00:00: mouth in [place] 10 mg 00 the Medical morning. Branch ALBUTEROL 2021-08 Yes [id number] INHALE 2 [facility] 90 0-21 PUFFS BY [facility]y of mcg/actuati 00:00: MOUTH [place] on inhaler 00 EVERY 6 Medica l HOURS Branch NEEDED FOR WHEEZING, SHORTNESS OF BREATH OR BRONCHOSPA SMS METFORMIN 2021-08 Yes [id number] TAKE 1 [facility] 850 mg 0-21 TABLET BY [facility] of tablet 00:00: MOUTH [place] THREE Medical TIMES Branch DAILY GLIPIZIDE 2021-08 Yes [id number] 5mg TAKE 1 [facility] XL 5 mg 24 0-21 TABLET BY [facility] of hr tablet 00:00: MOUTH [place] 00 DAILY WITH Medical BREAKFAST Branch amoxicillin 2021-08 Yes [id number] 500mg Take 1 [facility] 500 mg 0-21 tablet by [facility] of tablet 00:00: mouth in [place] the Medical morning Branch and 1 tablet in the evening. empaglifloz 2021-08 Yes [id number] 10mg Take 1 [facility] in 0-21 tablet by [facility] of ([place]) 00:00: mouth in [place] 10 mg 00 the Medical morning. Branch ALBUTEROL 2021-08 Yes [id number] INHALE 2 [facility] 90 0-21 PUFFS BY [facility] of mcg/actuati 00:00: MOUTH [place] on inhaler 00 EVERY 6 Medica l HOURS Branch NEEDED FOR WHEEZING, SHORTNESS OF BREATH OR BRONCHOSPA SMS METFORMIN 2021-08 Yes [id number] TAKE 1 [facility] 850 mg 0-21 TABLET BY [facility] of tablet 00:00: MOUTH [place] 00 THREE Medical TIMES Branch DAILY GLIPIZIDE 2021-08 Yes [id number] 5mg TAKE 1 [facility] XL 5 mg 24 0-21 TABLET BY [facility] of hr tablet 00:00: MOUTH [place] 00 DAILY WITH Medical BREAKFAST Branch amoxicillin 2021-08 Yes [id number] 500mg Take 1 [facility] 500 mg 0-21 tablet by [facility] of tablet 00:00: mouth in [place] 00 the Medical morning Branch and 1 tablet in the evening. empaglifloz 2021-08 Yes [id number] 10mg Take 1 [facility] in 0-21 tablet by [facility] of ([place]) 00:00: mouth in [place] 10 mg 00 the Medical morning. Branch ALBUTEROL 2021-08 Yes [id number] INHALE 2 [facility] 90 0-21 PUFFS BY [facility]y of mcg/actuati 00:00: MOUTH [place] on inhaler 00 EVERY 6 Medica l HOURS Branch NEEDED FOR WHEEZING, SHORTNESS OF BREATH OR BRONCHOSPA SMS METFORMIN 2021-08 Yes [id number] TAKE 1 [facility] 850 mg 0-21 TABLET BY [facility] of tablet 00:00: MOUTH [place] 00 THREE Medical TIMES Branch DAILY GLIPIZIDE 2021-08 Yes [id number] 5mg TAKE 1 [facility] XL 5 mg 24 0-21 TABLET BY [facility] of hr tablet 00:00: MOUTH [place] 00 DAILY WITH Medical BREAKFAST Branch amoxicillin 2021-08 Yes [id number] 500mg Take 1 [facility] 500 mg 0-21 tablet by [facility] of tablet 00:00: mouth in [place] 00 the Medical morning Branch and 1 tablet in the evening. empaglifloz 2021-08 Yes [id number] 10mg Take 1 [facility] in 0-21 tablet by [facility] of ([place]) 00:00: mouth in [place] 10 mg 00 the Medical morning. Branch ALBUTEROL 2021-08 Yes [id number] INHALE 2 [facility] 90 0-21 PUFFS BY [facility]y of mcg/actuati 00:00: MOUTH [place] on inhaler 00 EVERY 6 Medica l HOURS Branch NEEDED FOR WHEEZING, SHORTNESS OF BREATH OR BRONCHOSPA SMS METFORMIN 2021-08 Yes [id number] TAKE 1 [facility] 850 mg 0-21 TABLET BY [facility] of tablet 00:00: MOUTH [place] 00 THREE Medical TIMES Branch DAILY GLIPIZIDE 2021-08 Yes [id number] 5mg TAKE 1 [facility] XL 5 mg 24 0-21 TABLET BY [facility] of hr tablet 00:00: MOUTH [place] 00 DAILY WITH Medical BREAKFAST Branch amoxicillin 2021-08 Yes [id number] 500mg Take 1 [facility] 500 mg 0-21 tablet by [facility] of tablet 00:00: mouth in [place] 00 the Medical morning Branch and 1 tablet in the evening. empaglifloz 2021-08 Yes [id number] 10mg Take 1 [facility] in 0-21 tablet by [facility] of ([place]) 00:00: mouth in [place] 10 mg 00 the Medical morning. Branch ALBUTEROL 2021-08 Yes [id number] INHALE 2 [facility] 90 0-21 PUFFS BY [facility]y of mcg/actuati 00:00: MOUTH [place] on inhaler 00 EVERY 6 Medica l HOURS Branch NEEDED FOR WHEEZING, SHORTNESS OF BREATH OR BRONCHOSPA SMS METFORMIN 2021-08 Yes [id number] TAKE 1 [facility] 850 mg 0-21 TABLET BY [facility] of tablet 00:00: MOUTH [place] 00 THREE Medical TIMES Branch DAILY GLIPIZIDE 2021-08 Yes [id number] 5mg TAKE 1 [facility] XL 5 mg 24 0-21 TABLET BY [facility] of hr tablet 00:00: MOUTH [place] 00 DAILY WITH Medical BREAKFAST Branch amoxicillin 2021-08 Yes [id number] 500mg Take 1 [facility] 500 mg 0-21 tablet by [facility] of tablet 00:00: mouth in [place] 00 the Medical morning Branch and 1 tablet in the evening. empaglifloz 2021-08 Yes [id number] 10mg Take 1 [facility] in 0-21 tablet by [facility] of ([place]) 00:00: mouth in [place] 10 mg 00 the Medical morning. Branch ALBUTEROL 2021-08 Yes [id number] INHALE 2 [facility] 90 0-21 PUFFS BY [facility]y of mcg/actuati 00:00: MOUTH [place] on inhaler 00 EVERY 6 Medica l HOURS Branch NEEDED FOR WHEEZING, SHORTNESS OF BREATH OR BRONCHOSPA SMS METFORMIN 2021-08 Yes [id number] TAKE 1 [facility] 850 mg 0-21 TABLET BY [facility] of tablet 00:00: MOUTH [place] 00 THREE Medical TIMES Branch DAILY GLIPIZIDE 2021-08 Yes [id number] 5mg TAKE 1 [facility] XL 5 mg 24 0-21 TABLET BY [facility] of hr tablet 00:00: MOUTH [place] 00 DAILY WITH Medical BREAKFAST Branch amoxicillin 2021-08 Yes [id number] 500mg Take 1 [facility] 500 mg 0-21 tablet by [facility] tablet 00:00: mouth in [place] 00 the Medical morning Branch and 1 tablet in the evening. empaglifloz 2021-08 Yes [id number] 10mg Take 1 [facility] in 0-21 tablet by [facility] of ([place]) 00:00: mouth in [place] 10 mg 00 the Medical morning. Branch ALBUTEROL 2021-08 Yes [id number] INHALE 2 [facility] 90 0-21 PUFFS BY [facility] of mcg/actuati 00:00: MOUTH [place] on inhaler 00 EVERY 6 Medica l HOURS Branch NEEDED FOR WHEEZING, SHORTNESS OF BREATH OR BRONCHOSPA SMS METFORMIN 2021-08 Yes [id number] TAKE 1 [facility] 850 mg 0-21 TABLET BY [facility] of tablet 00:00: MOUTH [place] THREE Medical TIMES Branch DAILY GLIPIZIDE 2021-08 Yes [id number] 5mg TAKE 1 [facility] XL 5 mg 24 0-21 TABLET BY [facility] of hr tablet 00:00: MOUTH [place] 00 DAILY WITH Medical BREAKFAST Branch amoxicillin 2021-08 Yes [id number] 500mg Take 1 [facility] 500 mg 0-21 tablet by [facility] of tablet 00:00: mouth in [place] 00 the Medical morning Branch and 1 tablet in the evening. empaglifloz 2021-08 Yes [id number] 10mg Take 1 [facility] in 0-21 tablet by [facility] of ([place]) 00:00: mouth in [place] 10 mg 00 the Medical morning. Branch ALBUTEROL 2021-08 Yes [id number] INHALE 2 [facility] 90 0-21 PUFFS BY [facility] of mcg/actuati 00:00: MOUTH [place] on inhaler 00 EVERY 6 Medica l HOURS Branch NEEDED FOR WHEEZING, SHORTNESS OF BREATH OR BRONCHOSPA SMS METFORMIN 2021-08 Yes [id number] TAKE 1 [facility] 850 mg 0-21 TABLET BY [facility] of tablet 00:00: MOUTH [place] 00 THREE Medical TIMES Branch DAILY GLIPIZIDE 2021-08 Yes [id number] 5mg TAKE 1 [facility] XL 5 mg 24 0-21 TABLET BY [facility] of hr tablet 00:00: MOUTH [place] 00 DAILY WITH Medical BREAKFAST Branch amoxicillin 2021-08 Yes [id number] 500mg Take 1 [facility] 500 mg 0-21 tablet by [facility] of tablet 00:00: mouth in [place] 00 the Medical morning Branch and 1 tablet in the evening. empaglifloz 2021-08 Yes [id number] 10mg Take 1 [facility] in 0-21 tablet by [facility] of ([place]) 00:00: mouth in [place] 10 mg 00 the Medical morning. Branch ALBUTEROL 2021-08 Yes [id number] INHALE 2 [facility] 90 0-21 PUFFS BY [facility] of mcg/actuati 00:00: MOUTH [place] on inhaler 00 EVERY 6 Medica l HOURS Branch NEEDED FOR WHEEZING, SHORTNESS OF BREATH OR BRONCHOSPA SMS METFORMIN 2021-08 Yes [id number] TAKE 1 [facility] 850 mg 0-21 TABLET BY [facility] tablet 00:00: MOUTH [place] 00 THREE Medical TIMES Branch DAILY GLIPIZIDE 2021-08 Yes [id number] 5mg TAKE 1 [facility] XL 5 mg 24 0-21 TABLET BY [facility] hr tablet 00:00: MOUTH [place] 00 DAILY WITH Medical BREAKFAST Branch amoxicillin 2021-08 Yes [id number] 500mg Take 1 [facility] 500 mg 0-21 tablet by [facility] of tablet 00:00: mouth in [place] 00 the Medical morning Branch and 1 tablet in the evening. empaglifloz 2021-08 Yes [id number] 10mg Take 1 [facility] in 0-21 tablet by [facility] of ([place]) 00:00: mouth in [place] 10 mg 00 the Medical morning. Branch QUINAPRIL 2021-08- No [id number] 40mg TAKE 1 [facility] 40 mg 0-21 12-07 TABLET BY [facility] of tablet 00:00: 00:00 MOUTH [place] 00 :00 EVERY Medical MORNING Branch QUINAPRIL 2021-08- No [id number] 40mg TAKE 1 [facility] 40 mg [...] for Pain. Indication s: chronic pain gabapentin Yes [id number] TAKE 1 [facility] 300 mg 9-27 CAPSULE BY [facility] capsule 00:00: MOUTH [place] 00 TIMES Medical DAILY Branch gabapentin 2021-0 Yes [id number] TAKE 1 [facility] 300 mg 9-27 CAPSULE BY [facility] capsule 00:00: MOUTH [place] 00 TIMES Medical DAILY Branch gabapentin 2021-0 Yes [id number] TAKE 1 [facility] 300 mg 9-27 CAPSULE BY [facility] capsule 00:00: MOUTH [place] 00 TIMES Medical DAILY Branch gabapentin 2021-0 Yes [id number] TAKE 1 [facility] 300 mg 9-27 CAPSULE BY [facility] capsule 00:00: MOUTH [place] 00 TIMES Medical DAILY Branch gabapentin 2022-0 Yes [id number] TAKE 1 [facility] 300 mg 9-27 CAPSULE BY [facility] capsule 00:00: MOUTH [place] 00 TIMES Medical DAILY Branch gabapentin 2022-0 Yes [id number] TAKE 1 [facility] 300 mg 9-27 CAPSULE BY [facility] capsule 00:00: MOUTH [place] 00 TIMES Medical DAILY Branch gabapentin 2022-0 Yes [id number] TAKE 1 [facility] 300 mg 9-27 CAPSULE BY [facility] capsule 00:00: MOUTH [place] 00 TIMES Medical DAILY Branch gabapentin 2022-0 Yes [id number] TAKE 1 [facility] 300 mg 9-27 CAPSULE BY [facility] capsule 00:00: MOUTH [place] 00 TIMES Medical DAILY Branch gabapentin 2022-0 Yes [id number] TAKE 1 [facility] 300 mg 9-27 CAPSULE BY [facility] of capsule 00:00: MOUTH [place] 00 TIMES Medical DAILY Branch gabapentin 2022-0 Yes [id number] TAKE 1 [facility] 300 mg 9-27 CAPSULE BY [facility] capsule 00:00: MOUTH [place] 00 TIMES Medical DAILY Branch gabapentin 2022-0 Yes [id number] TAKE 1 [facility] 300 mg 9-27 CAPSULE BY [facility] of capsule 00:00: MOUTH [place] 00 TIMES Medical DAILY Branch gabapentin 2022-0 Yes [id number] TAKE 1 [facility] 300 mg 9-27 CAPSULE BY [facility] of capsule 00:00: MOUTH [place] 00 TIMES Medical DAILY Branch gabapentin 2022-0 Yes [id number] TAKE 1 [facility] 300 mg 9-27 CAPSULE BY [facility] of capsule 00:00: MOUTH [place] 00 TIMES Medical DAILY Branch gabapentin 2022-0 Yes [id number] TAKE 1 [facility] 300 mg 9-27 CAPSULE BY [facility] of capsule 00:00: MOUTH [place] 00 TIMES Medical DAILY Branch gabapentin 2022-0 Yes [id number] TAKE 1 [facility] 300 mg 9-27 CAPSULE BY [facility] of capsule 00:00: MOUTH [place] 00 TIMES Medical DAILY Branch gabapentin 2022-0 Yes [id number] TAKE 1 [facility] 300 mg 9-27 CAPSULE BY [facility] of capsule 00:00: MOUTH [place] 00 TIMES Medical DAILY Branch gabapentin 2022-0 Yes [id number] TAKE 1 [facility] 300 mg 9-27 CAPSULE BY [facility] of capsule 00:00: MOUTH [place] 00 TIMES Medical DAILY Branch gabapentin 2022-0 Yes [id number] TAKE 1 [facility] 300 mg 9-27 CAPSULE BY [facility] of capsule 00:00: MOUTH [place] 00 TIMES Medical DAILY Branch gabapentin 2022-0 Yes [id number] TAKE 1 [facility] 300 mg 9-27 CAPSULE BY [facility] of capsule 00:00: MOUTH [place] 00 TIMES Medical DAILY Branch gabapentin 2022-0 Yes [id number] TAKE 1 [facility] 300 mg 9-27 CAPSULE BY [facility] of capsule 00:00: MOUTH [place] 00 TIMES Medical DAILY Branch gabapentin 2022-0 Yes [id number] TAKE 1 [facility] 300 mg 9-27 CAPSULE BY [facility] of capsule 00:00: MOUTH [place] 00 TIMES Medical DAILY Branch gabapentin 2022-0 Yes [id number] TAKE 1 [facility] 300 mg 9-27 CAPSULE BY [facility] of capsule 00:00: MOUTH [place] 00 TIMES Medical DAILY Branch gabapentin 2022-0 Yes [id number] TAKE 1 [facility] 300 mg 9-27 CAPSULE BY [facility] of capsule 00:00: MOUTH [place] 00 TIMES Medical DAILY Branch gabapentin 2022-0 Yes [id number] TAKE 1 [facility] 300 mg 9-27 CAPSULE BY [facility] of capsule 00:00: MOUTH [place] 00 TIMES Medical DAILY Branch gabapentin 2022-0 Yes [id number] TAKE 1 [facility] 300 mg 9-27 CAPSULE BY [facility] of capsule 00:00: MOUTH [place] 00 TIMES Medical DAILY Branch gabapentin 2022-0 Yes [id number] TAKE 1 [facility] 300 mg 9-27 CAPSULE BY [facility] of capsule 00:00: MOUTH [place] 00 TIMES Medical DAILY Branch gabapentin 2022-0 Yes [id number] TAKE 1 [facility] 300 mg 9-27 CAPSULE BY [facility] of capsule 00:00: MOUTH [place] 00 TIMES Medical DAILY Branch gabapentin 2022-0 Yes [id number] TAKE 1 [facility] 300 mg 9-27 CAPSULE BY [facility] of capsule 00:00: MOUTH [place] 00 TIMES Medical DAILY Branch gabapentin 2022-0 Yes [id number] TAKE 1 [facility] 300 mg 9-27 CAPSULE BY [facility] of capsule 00:00: MOUTH [place] 00 TIMES Medical DAILY Branch gabapentin 2022-0 Yes [id number] TAKE 1 [facility] 300 mg 9-27 CAPSULE BY [facility] of capsule 00:00: MOUTH [place] 00 TIMES Medical DAILY Branch gabapentin 2022-0 Yes [id number] TAKE 1 [facility] 300 mg 9-27 CAPSULE BY [facility] of capsule 00:00: MOUTH [place] 00 TIMES Medical DAILY Branch gabapentin 2022-0 Yes [id number] TAKE 1 [facility] 300 mg 9-27 CAPSULE BY [facility] of capsule 00:00: MOUTH [place] 00 TIMES Medical DAILY Branch gabapentin 2022-0 Yes [id number] TAKE 1 [facility] 300 mg 9-27 CAPSULE BY [facility] of capsule 00:00: MOUTH [place] 00 TIMES Medical DAILY Branch gabapentin 2022-0 Yes [id number] TAKE 1 [facility] 300 mg 9-27 CAPSULE BY [facility] of capsule 00:00: MOUTH [place] 00 TIMES Medical DAILY Branch gabapentin 2022-0 Yes [id number] TAKE 1 [facility] 300 mg 9-27 CAPSULE BY [facility] of capsule 00:00: MOUTH [place] 00 TIMES Medical DAILY Branch gabapentin 2022-0 Yes [id number] TAKE 1 [facility] 300 mg 9-27 CAPSULE BY [facility] of capsule 00:00: MOUTH [place] 00 TIMES Medical DAILY Branch gabapentin 2022-0 Yes [id number] TAKE 1 [facility] 300 mg 9-27 CAPSULE BY [facility] of capsule 00:00: MOUTH [place] 00 TIMES Medical DAILY Branch gabapentin 2022-0 Yes [id number] TAKE 1 [facility] 300 mg 9-27 CAPSULE BY [facility] of capsule 00:00: MOUTH [place] 00 TIMES Medical DAILY Branch gabapentin 2022-0 Yes [id number] TAKE 1 [facility] 300 mg 9-27 CAPSULE BY [facility] of capsule 00:00: MOUTH [place] 00 TIMES Medical DAILY Branch gabapentin 2022-0 Yes [id number] TAKE 1 [facility] 300 mg 9-27 CAPSULE BY [facility] of capsule 00:00: MOUTH [place] 00 TIMES Medical DAILY Branch gabapentin 2022-0 Yes [id number] TAKE 1 [facility] 300 mg 9-27 CAPSULE BY [facility] of capsule 00:00: MOUTH [place] 00 TIMES Medical DAILY Branch gabapentin 2022-0 Yes [id number] TAKE 1 [facility] 300 mg 9-27 CAPSULE BY [facility] of capsule 00:00: MOUTH FOUR [place] 00 TIMES Medical DAILY Branch gabapentin 2022-0 Yes [id number] TAKE 1 [facility] 300 mg 9-27 CAPSULE BY [facility] of capsule 00:00: MOUTH [place] 00 TIMES Medical DAILY Branch gabapentin 2022-0 Yes [id number] TAKE 1 [facility] 300 mg 9-27 CAPSULE BY [facility] of capsule 00:00: MOUTH [place] 00 TIMES Medical DAILY Branch gabapentin 2022-0 Yes [id number] TAKE 1 [facility] 300 mg 9-27 CAPSULE BY [facility] of capsule 00:00: MOUTH [place] 00 TIMES Medical DAILY Branch gabapentin 2022-0 Yes [id number] TAKE 1 [facility] 300 mg 9-27 CAPSULE BY [facility] of capsule 00:00: MOUTH [place] 00 TIMES Medical DAILY Branch gabapentin 2022-0 Yes [id number] TAKE 1 [facility] 300 mg 9-27 CAPSULE BY [facility] of capsule 00:00: MOUTH [place] 00 TIMES Medical DAILY Branch gabapentin 2022-0 Yes [id number] TAKE 1 [facility] 300 mg 9-27 CAPSULE BY [facility] of capsule 00:00: MOUTH [place] 00 TIMES Medical DAILY Branch gabapentin 2022-0 Yes [id number] TAKE 1 [facility] 300 mg 9-27 CAPSULE BY [facility] of capsule 00:00: MOUTH [place] 00 TIMES Medical DAILY Branch gabapentin 2022-0 Yes [id number] TAKE 1 [facility] 300 mg 9-27 CAPSULE BY [facility] of capsule 00:00: MOUTH [place] 00 TIMES Medical DAILY Branch gabapentin 2022-0 Yes [id number] TAKE 1 [facility] 300 mg 9-27 CAPSULE BY [facility] of capsule 00:00: MOUTH [place] 00 TIMES Medical DAILY Branch gabapentin 2022-0 Yes [id number] TAKE 1 [facility] 300 mg 9-27 CAPSULE BY [facility] of capsule 00:00: MOUTH [place] 00 TIMES Medical DAILY Branch gabapentin 2022-0 Yes [id number] TAKE 1 [facility] 300 mg 9-27 CAPSULE BY [facility] of capsule 00:00: MOUTH [place] 00 TIMES Medical DAILY Branch gabapentin 2022-0 Yes [id number] TAKE 1 [facility] 300 mg 9-27 CAPSULE BY [facility] of capsule 00:00: MOUTH [place] 00 TIMES Medical DAILY Branch gabapentin 2022-0 Yes [id number] TAKE 1 [facility] 300 mg 9-27 CAPSULE BY [facility] of capsule 00:00: MOUTH [place] 00 TIMES Medical DAILY Branch gabapentin 2022-0 Yes [id number] TAKE 1 [facility] 300 mg 9-27 CAPSULE BY [facility] of capsule 00:00: MOUTH [place] 00 TIMES Medical DAILY Branch gabapentin 2022-0 Yes [id number] TAKE 1 [facility] 300 mg 9-27 CAPSULE BY [facility] of capsule 00:00: MOUTH [place] 00 TIMES Medical DAILY Branch gabapentin 2022-0 Yes [id number] TAKE 1 [facility] 300 mg 9-27 CAPSULE BY [facility] of capsule 00:00: MOUTH FOUR [place] 00 TIMES Medical DAILY Branch gabapentin 2022-0 Yes [id number] TAKE 1 [facility] 300 mg 9-27 CAPSULE BY [facility] of capsule 00:00: MOUTH [place] 00 TIMES Medical DAILY Branch gabapentin 2022-0 Yes [id number] TAKE 1 [facility] 300 mg 9-27 CAPSULE BY [facility] of capsule 00:00: MOUTH [place] 00 TIMES Medical DAILY Branch gabapentin 2022-0 2022- No [id number] TAKE 1 [facility] 300 mg 9-27 12-20 CAPSULE BY ity of capsule 00:00: 00:00 MOUTH FOUR [place] 00 :00 TIMES Medical DAILY Branch clonazePAM 2022-0 Yes [id number] 1mg Take 1 [facility] 1 mg tablet 9-26 tablet by ity of 00:00: mouth in [place] the Medical morning Branch and 1 tablet at noon and 1 tablet in the evening. clonazePAM 2022-0 Yes [id number] 1mg Take 1 [facility] 1 mg tablet 9-26 tablet by ity of 00:00: mouth in [place] the Medical morning Branch and 1 tablet at noon and 1 tablet in the evening. clonazePAM 2022-0 Yes [id number] 1mg Take 1 [facility] 1 mg tablet 9-26 tablet by ity of 00:00: mouth in [place] the Medical morning Branch and 1 tablet at noon and 1 tablet in the evening. clonazePAM 2022-0 Yes [id number] 1mg Take 1 [facility] 1 mg tablet 9-26 tablet by ity of 00:00: mouth in [place] the Medical morning Branch and 1 tablet at noon and 1 tablet in the evening. clonazePAM 2022-0 Yes [id number] 1mg Take 1 [facility] 1 mg tablet 9-26 tablet by ity of 00:00: mouth in [place] [address] the Medical morning Branch and 1 tablet at noon and 1 tablet in the evening. clonazePAM 2022-0 Yes [id number] 1mg Take 1 [facility] 1 mg tablet 9-26 tablet by ity of 00:00: mouth in [place] [address] the Medical morning Branch and 1 tablet at noon and 1 tablet in the evening. clonazePAM 2022-0 Yes [id number] 1mg Take 1 [facility] 1 mg tablet 9-26 tablet by ity of 00:00: mouth in [place] [address] the Medical morning Branch and 1 tablet at noon and 1 tablet in the evening. clonazePAM 2022-0 Yes [id number] 1mg Take 1 [facility] 1 mg tablet 9-26 tablet by ity of 00:00: mouth in [place] [address] the Medical morning Branch and 1 tablet at noon and 1 tablet in the evening. clonazePAM 2022-0 Yes [id number] 1mg Take 1 [facility] 1 mg tablet 9-26 tablet by ity of 00:00: mouth in [place] [address] the Medical morning Branch and 1 tablet at noon and 1 tablet in the evening. clonazePAM 2022-0 Yes [id number] 1mg Take 1 [facility] 1 mg tablet 9-26 tablet by ity of 00:00: mouth in [place] [address] the Medical morning Branch and 1 tablet at noon and 1 tablet in the evening. clonazePAM 2022-0 Yes [id number] 1mg Take 1 [facility] 1 mg tablet 9-26 tablet by ity of 00:00: mouth in [place] [address] the Medical morning Branch and 1 tablet at noon and 1 tablet in the evening. clonazePAM 2022-0 Yes [id number] 1mg Take 1 [facility] 1 mg tablet 9-26 tablet by ity of 00:00: mouth in [place] [address] the Medical morning Branch and 1 tablet at noon and 1 tablet in the evening. clonazePAM 2022-0 Yes [id number] 1mg Take 1 [facility] 1 mg tablet 9-26 tablet by ity of 00:00: mouth in [place] [address] the Medical morning Branch and 1 tablet at noon and 1 tablet in the evening. clonazePAM 2022-0 Yes [id number] 1mg Take 1 [facility] 1 mg tablet 9-26 tablet by ity of 00:00: mouth in [place] [address] the Medical morning Branch and 1 tablet at noon and 1 tablet in the evening. clonazePAM 2022-0 Yes [id number] 1mg Take 1 [facility] 1 mg tablet 9-26 tablet by ity of 00:00: mouth in [place] [address] the Medical morning Branch and 1 tablet at noon and 1 tablet in the evening. clonazePAM 2022-0 Yes [id number] 1mg Take 1 [facility] 1 mg tablet 9-26 tablet by ity of 00:00: mouth in [place] [address] the Medical morning Branch and 1 tablet at noon and 1 tablet in the evening. clonazePAM 2022-0 Yes [id number] 1mg Take 1 [facility] 1 mg tablet 9-26 tablet by ity of 00:00: mouth in [place] [address] the Medical morning Branch and 1 tablet at noon and 1 tablet in the evening. clonazePAM 2022-0 Yes [id number] 1mg Take 1 [facility] 1 mg tablet 9-26 tablet by ity of 00:00: mouth in [place] [address] the Medical morning Branch and 1 tablet at noon and 1 tablet in the evening. clonazePAM 2022-0 Yes [id number] 1mg Take 1 [facility] 1 mg tablet 9-26 tablet by ity of 00:00: mouth in [place] [address] the Medical morning Branch and 1 tablet at noon and 1 tablet in the evening. clonazePAM 2022-0 Yes [id number] 1mg Take 1 [facility] 1 mg tablet 9-26 tablet by [facility]y of 00:00: mouth in [place] [address] the Medical morning Branch and 1 tablet at noon and 1 tablet in the evening. clonazePAM 2022-0 Yes [id number] 1mg Take 1 [facility] 1 mg tablet 9-26 tablet by ity of 00:00: mouth in [place] [address] the Medical morning Branch and 1 tablet at noon and 1 tablet in the evening. clonazePAM 2022-0 Yes [id number] 1mg Take 1 [facility] 1 mg tablet 9-26 tablet by [facility]y of 00:00: mouth in [place] [address] the Medical morning Branch and 1 tablet at noon and 1 tablet in the evening. clonazePAM 2022-0 Yes [id number] 1mg Take 1 [facility] 1 mg tablet 9-26 tablet by [facility]y of 00:00: mouth in [place] [address] the Medical morning Branch and 1 tablet at noon and 1 tablet in the evening. clonazePAM 2022-0 Yes [id number] 1mg Take 1 [facility] 1 mg tablet 9-26 tablet by [facility]y of 00:00: mouth in [place] [address] the Medical morning Branch and 1 tablet at noon and 1 tablet in the evening. clonazePAM 2022-0 Yes [id number] 1mg Take 1 [facility] 1 mg tablet 9-26 tablet by [facility]y of 00:00: mouth in [place] [address] the Medical morning Branch and 1 tablet at noon and 1 tablet in the evening. clonazePAM 2022-0 Yes [id number] 1mg Take 1 [facility] 1 mg tablet 9-26 tablet by [facility]y of 00:00: mouth in [place] [address] the Medical morning Branch and 1 tablet at noon and 1 tablet in the evening. clonazePAM 2022-0 Yes [id number] 1mg Take 1 [facility] 1 mg tablet 9-26 tablet by [facility]y of 00:00: mouth in [place] [address] the Medical morning Branch and 1 tablet at noon and 1 tablet in the evening. clonazePAM 2022-0 Yes [id number] 1mg Take 1 [facility] 1 mg tablet 9-26 tablet by [facility]y of 00:00: mouth in [place] [address] the Medical morning Branch and 1 tablet at noon and 1 tablet in the evening. clonazePAM 2022-0 Yes [id number] 1mg Take 1 [facility] 1 mg tablet 9-26 tablet by [facility]y of 00:00: mouth in [place] [address] the Medical morning [place] and 1 tablet at noon and 1 tablet in the evening. clonazePAM 2022-0 Yes [id number] 1mg Take 1 [facility] 1 mg tablet 9-26 tablet by [facility]y of 00:00: mouth in [place] [address] the Medical morning [place] and 1 tablet at noon and 1 tablet in the evening. clonazePAM 2022-0 Yes [id number] 1mg Take 1 [facility] 1 mg tablet 9-26 tablet by [facility] of 00:00: mouth in [place] [address] the Medical morning Branch and 1 tablet at noon and 1 tablet in the evening. clonazePAM 2022-0 Yes [id number] 1mg Take 1 [facility] 1 mg tablet 9-26 tablet by [facility]y of 00:00: mouth in [place] [address] the Medical morning [place] and 1 tablet at noon and 1 tablet in the evening. clonazePAM 2022-0 Yes [id number] 1mg Take 1 [facility] 1 mg tablet 9-26 tablet by [facility]y of 00:00: mouth in [place] [address] the Medical morning [place] and 1 tablet at noon and 1 tablet in the evening. clonazePAM 2022-0 Yes [id number] 1mg Take 1 [facility] 1 mg tablet 9-26 tablet by [facility]y of 00:00: mouth in [place] [address] the Medical morning [place] and 1 tablet at noon and 1 tablet in the evening. clonazePAM 2022-0 Yes [id number] 1mg Take 1 [facility] 1 mg tablet 9-26 tablet by [facility]y of 00:00: mouth in [place] 00 the Medical morning Branch and 1 tablet at noon and 1 tablet in the evening. clonazePAM 2022-0 Yes [id number] 1mg Take 1 [facility] 1 mg tablet 9-26 tablet by [facility]y of 00:00: mouth in [place] 00 the Medical morning Branch and 1 tablet at noon and 1 tablet in the evening. clonazePAM 2022-0 Yes [id number] 1mg Take 1 [facility] 1 mg tablet 9-26 tablet by [facility]y of 00:00: mouth in [place] 00 the Medical morning Branch and 1 tablet at noon and 1 tablet in the evening. clonazePAM 2022-0 Yes [id number] 1mg Take 1 [facility] 1 mg tablet 9-26 tablet by [facility] of 00:00: mouth in [place] [address] the Medical morning Branch and 1 tablet at noon and 1 tablet in the evening. clonazePAM 2022-0 Yes [id number] 1mg Take 1 [facility] 1 mg tablet 9-26 tablet by [facility]y of 00:00: mouth in [place] [address] the Medical morning [place] and 1 tablet at noon and 1 tablet in the evening. clonazePAM 2022-0 Yes [id number] 1mg Take 1 [facility] 1 mg tablet 9-26 tablet by [facility] of 00:00: mouth in [place] [address] the Medical morning Branch and 1 tablet at noon and 1 tablet in the evening. clonazePAM 2022-0 Yes [id number] 1mg Take 1 [facility] 1 mg tablet 9-26 tablet by [facility] of 00:00: mouth in [place] [address] the Medical morning Branch and 1 tablet at noon and 1 tablet in the evening. clonazePAM 2022-0 Yes [id number] 1mg Take 1 [facility] 1 mg tablet 9-26 tablet by [facility] of 00:00: mouth in [place] 00 the Medical morning Branch and 1 tablet at noon and 1 tablet in the evening. clonazePAM 2022-0 2022- No [id number] 1mg Take 1 [facility] 1 mg tablet 9-26 11-21 tablet by it y of 00:00: 00:00 mouth in [place] 00 :00 the Medical morning Branch and 1 tablet at noon and 1 tablet in the evening. clonazePAM 2022-0 2022- No [id number] 1mg Take 1 [facility] 1 mg tablet 04-28 11-21 tablet by it y of 00:00: 00:00 mouth in [place] 00 :00 the Medical morning Branch and 1 tablet at noon and 1 tablet in the evening. HYDROcodone Yes 2745 1{tbl} Take 1 Un [...] HYDROcodone Yes 2745 1{tbl} Take 1 [facility] -acetaminop 9-07 tablet by [facility] of hen [...] Indication s: chronic pain VERAPAMIL 2021-0 Yes [id number] 240mg TAKE 1 [facility] 240 mg 24 8-29 CAPSULE BY ity of hr capsule 00:00: MOUTH [place] 00 DAILY Medical Branch VERAPAMIL 2021-0 Yes [id number] 240mg TAKE 1 [facility] 240 mg 24 8-29 CAPSULE BY ity of hr capsule 00:00: MOUTH DAILY Medical Branch VERAPAMIL 2022-0 Yes [id number] 240mg TAKE 1 [facility] 240 mg 24 8-29 CAPSULE BY ity of hr capsule 00:00: MOUTH DAILY Medical Branch VERAPAMIL 2022-0 Yes [id number] 240mg TAKE 1 [facility] 240 mg 24 8-29 CAPSULE BY ity of hr capsule 00:00: MOUTH DAILY Medical Branch VERAPAMIL 2022-0 Yes [id number] 240mg TAKE 1 [facility] 240 mg 24 8-29 CAPSULE BY ity of hr capsule 00:00: MOUTH DAILY Medical Branch VERAPAMIL 2022-0 Yes [id number] 240mg TAKE 1 [facility] 240 mg 24 8-29 CAPSULE BY ity of hr capsule 00:00: MOUTH DAILY Medical Branch VERAPAMIL 2022-0 Yes [id number] 240mg TAKE 1 [facility] 240 mg 24 8-29 CAPSULE BY ity of hr capsule 00:00: MOUTH DAILY Medical Branch VERAPAMIL 2022-0 Yes [id number] 240mg TAKE 1 [facility] 240 mg 24 8-29 CAPSULE BY ity of hr capsule 00:00: MOUTH DAILY Medical Branch VERAPAMIL 2022-0 Yes [id number] 240mg TAKE 1 [facility] 240 mg 24 8-29 CAPSULE BY ity of hr capsule 00:00: MOUTH DAILY Medical Branch VERAPAMIL 2022-0 Yes [id number] 240mg TAKE 1 [facility] 240 mg 24 8-29 CAPSULE BY ity of hr capsule 00:00: MOUTH DAILY Medical Branch VERAPAMIL 2022-0 Yes [id number] 240mg TAKE 1 [facility] 240 mg 24 8-29 CAPSULE BY ity of hr capsule 00:00: MOUTH DAILY Medical Branch VERAPAMIL 2022-0 Yes [id number] 240mg TAKE 1 [facility] 240 mg 24 8-29 CAPSULE BY ity of hr capsule 00:00: MOUTH DAILY Medical Branch VERAPAMIL 2022-0 Yes [id number] 240mg TAKE 1 [facility] 240 mg 24 8-29 CAPSULE BY ity of hr capsule 00:00: MOUTH DAILY Medical Branch VERAPAMIL 2022-0 Yes [id number] 240mg TAKE 1 [facility] 240 mg 24 8-29 CAPSULE BY ity of hr capsule 00:00: MOUTH DAILY Medical Branch VERAPAMIL 2022-0 Yes [id number] 240mg TAKE 1 [facility] 240 mg 24 8-29 CAPSULE BY ity of hr capsule 00:00: MOUTH DAILY Medical Branch VERAPAMIL 2022-0 Yes [id number] 240mg TAKE 1 [facility] 240 mg 24 8-29 CAPSULE BY ity of hr capsule 00:00: MOUTH DAILY Medical Branch VERAPAMIL 2022-0 Yes [id number] 240mg TAKE 1 [facility] 240 mg 24 8-29 CAPSULE BY ity of hr capsule 00:00: MOUTH DAILY Medical Branch VERAPAMIL 2022-0 Yes [id number] 240mg TAKE 1 [facility] 240 mg 24 8-29 CAPSULE BY ity of hr capsule 00:00: MOUTH DAILY Medical Branch VERAPAMIL 2022-0 Yes [id number] 240mg TAKE 1 [facility] 240 mg 24 8-29 CAPSULE BY ity of hr capsule 00:00: MOUTH DAILY Medical Branch VERAPAMIL 2022-0 Yes [id number] 240mg TAKE 1 [facility] 240 mg 24 8-29 CAPSULE BY ity of hr capsule 00:00: MOUTH DAILY Medical Branch VERAPAMIL 2022-0 Yes [id number] 240mg TAKE 1 [facility] 240 mg 24 8-29 CAPSULE BY ity of hr capsule 00:00: MOUTH DAILY Medical Branch VERAPAMIL 2022-0 Yes [id number] 240mg TAKE 1 [facility] 240 mg 24 8-29 CAPSULE BY ity of hr capsule 00:00: MOUTH DAILY Medical Branch VERAPAMIL 2022-0 Yes [id number] 240mg TAKE 1 [facility] 240 mg 24 8-29 CAPSULE BY ity of hr capsule 00:00: MOUTH DAILY Medical Branch VERAPAMIL 2022-0 Yes [id number] 240mg TAKE 1 [facility] 240 mg 24 8-29 CAPSULE BY ity of hr capsule 00:00: MOUTH DAILY Medical Branch VERAPAMIL 2022-0 Yes [id number] 240mg TAKE 1 [facility] 240 mg 24 8-29 CAPSULE BY ity of hr capsule 00:00: MOUTH DAILY Medical Branch VERAPAMIL 2022-0 Yes [id number] 240mg TAKE 1 [facility] 240 mg 24 8-29 CAPSULE BY ity of hr capsule 00:00: MOUTH DAILY Medical Branch VERAPAMIL 2022-0 Yes [id number] 240mg TAKE 1 [facility] 240 mg 24 8-29 CAPSULE BY ity of hr capsule 00:00: MOUTH [place] 00 DAILY Medical Branch VERAPAMIL 2022-0 Yes [id number] 240mg TAKE 1 [facility] 240 mg 24 8-29 CAPSULE BY [facility] of hr capsule 00:00: MOUTH 00 DAILY [facility] Branch VERAPAMIL 2022-0 Yes [id number] 240mg TAKE 1 [facility] 240 mg 24 8-29 CAPSULE BY [facility]y of hr capsule 00:00: MOUTH 00 DAILY Medical Branch VERAPAMIL 2022-0 Yes [id number] 240mg TAKE 1 [facility] 240 mg 24 8-29 CAPSULE BY ity of hr capsule 00:00: MOUTH 00 DAILY [facility] Branch VERAPAMIL 2022-0 Yes [id number] 240mg TAKE 1 [facility] 240 mg 24 8-29 CAPSULE BY [facility]y of hr capsule 00:00: MOUTH 00 DAILY [facility] Branch VERAPAMIL 2022-0 2022- No [id number] 240mg TAKE 1 [facility] 240 mg 24 8-29 11-08 CAPSULE BY ity of hr capsule 00:00: 00:00 MOUTH [place] 00 :00 DAILY Medical Branch VERAPAMIL 2022-0 2- No [id number] 240mg TAKE 1 [facility] 240 mg 24 8-29 -08 CAPSULE BY ity of hr capsule 00:00: 00:00 MOUTH [place] 00 :00 DAILY Medical Branch VERAPAMIL 2022-0 2- No [id number] 240mg TAKE 1 [facility] 240 mg 24 8-29 11-08 CAPSULE BY ity of hr capsule 00:00: 00:00 [facility] [place] 00 :00 DAILY Medical Branch ALBUTEROL 2021-0 Yes [id number] INHALE 2 [facility] 90 8-24 PUFFS BY ity of mcg/actuati 00:00: [facility] on inhaler 00 EVERY 6 Medica l HOURS Branch NEEDED FOR WHEEZING, SHORTNESS OF BREATH OR BRONCHOSPA SMS ALBUTEROL 0 Yes [id number] INHALE 2 Univers 90 8-24 PUFFS BY ity of mcg/actuati 00:00: MOUTH [place] on inhaler 00 EVERY 6 Medica l HOURS Branch NEEDED FOR WHEEZING, SHORTNESS OF BREATH OR BRONCHOSPA SMS ALBUTEROL 0 Yes [id number] INHALE 2 Univers 90 8-24 PUFFS BY ity of mcg/actuati 00:00: MOUTH [place] on inhaler 00 EVERY 6 Medica l HOURS Branch NEEDED FOR WHEEZING, SHORTNESS OF BREATH OR BRONCHOSPA SMS ALBUTEROL 0 Yes [id number] INHALE 2 [facility] 90 8-24 PUFFS BY ity of mcg/actuati 00:00: MOUTH [place] on inhaler 00 EVERY 6 Medica l HOURS Branch NEEDED FOR WHEEZING, SHORTNESS OF BREATH OR BRONCHOSPA SMS ALBUTEROL Yes [id number] INHALE 2 [facility] 90 8-24 PUFFS BY ity of mcg/actuati 00:00: MOUTH [place] on inhaler 00 EVERY 6 Medica l HOURS Branch NEEDED FOR WHEEZING, SHORTNESS OF BREATH OR BRONCHOSPA SMS ALBUTEROL Yes [id number] INHALE 2 [facility] 90 8-24 PUFFS BY ity of mcg/actuati 00:00: MOUTH [place] on inhaler 00 EVERY 6 Medica l HOURS Branch NEEDED FOR WHEEZING, SHORTNESS OF BREATH OR BRONCHOSPA SMS ALBUTEROL Yes [id number] INHALE 2 [facility] 90 8-24 PUFFS BY ity of mcg/actuati 00:00: MOUTH [place] on inhaler 00 EVERY 6 Medica l HOURS Branch NEEDED FOR WHEEZING, SHORTNESS OF BREATH OR BRONCHOSPA SMS ALBUTEROL Yes [id number] INHALE 2 [facility] 90 8-24 PUFFS BY ity of mcg/actuati 00:00: MOUTH [place] on inhaler 00 EVERY 6 Medica l HOURS Branch NEEDED FOR WHEEZING, SHORTNESS OF BREATH OR BRONCHOSPA SMS ALBUTEROL Yes [id number] INHALE 2 [facility] 90 8-24 PUFFS BY ity of mcg/actuati 00:00: MOUTH [place] on inhaler 00 EVERY 6 Medica l HOURS Branch NEEDED FOR WHEEZING, SHORTNESS OF BREATH OR BRONCHOSPA SMS ALBUTEROL Yes [id number] INHALE 2 [facility] 90 8-24 PUFFS BY ity of mcg/actuati 00:00: MOUTH [place] on inhaler 00 EVERY 6 Medica l HOURS Branch NEEDED FOR WHEEZING, SHORTNESS OF BREATH OR BRONCHOSPA SMS ALBUTEROL Yes [id number] INHALE 2 [facility] 90 8-24 PUFFS BY ity of mcg/actuati 00:00: MOUTH [place] on inhaler 00 EVERY 6 Medica l HOURS Branch NEEDED FOR WHEEZING, SHORTNESS OF BREATH OR BRONCHOSPA SMS ALBUTEROL 0 Yes [id number] INHALE 2 [facility] 90 8-24 PUFFS BY ity of mcg/actuati 00:00: MOUTH [place] on inhaler 00 EVERY 6 Medica l HOURS Branch NEEDED FOR WHEEZING, SHORTNESS OF BREATH OR BRONCHOSPA SMS ALBUTEROL Yes [id number] INHALE 2 [facility] 90 8-24 PUFFS BY ity of mcg/actuati 00:00: MOUTH [place] on inhaler 00 EVERY 6 Medica l HOURS Branch NEEDED FOR WHEEZING, SHORTNESS OF BREATH OR BRONCHOSPA SMS ALBUTEROL Yes [id number] INHALE 2 [facility] 90 8-24 PUFFS BY ity of mcg/actuati 00:00: MOUTH [place] on inhaler 00 EVERY 6 Medica l HOURS Branch NEEDED FOR WHEEZING, SHORTNESS OF BREATH OR BRONCHOSPA SMS ALBUTEROL Yes [id number] INHALE 2 [facility] 90 8-24 PUFFS BY ity of mcg/actuati 00:00: MOUTH [place] on inhaler 00 EVERY 6 Medica l HOURS Branch NEEDED FOR WHEEZING, SHORTNESS OF BREATH OR BRONCHOSPA SMS ALBUTEROL Yes [id number] INHALE 2 [facility] 90 8-24 PUFFS BY ity of mcg/actuati 00:00: MOUTH [place] on inhaler 00 EVERY 6 Medica l HOURS Branch NEEDED FOR WHEEZING, SHORTNESS OF BREATH OR BRONCHOSPA SMS ALBUTEROL Yes [id number] INHALE 2 [facility] 90 8-24 PUFFS BY ity of mcg/actuati 00:00: MOUTH [place] on inhaler 00 EVERY 6 Medica l HOURS Branch NEEDED FOR WHEEZING, SHORTNESS OF BREATH OR BRONCHOSPA SMS ALBUTEROL 0 2021- No [id number] INHALE 2 [facility] 90 8-24 10-21 PUFFS BY ity of mcg/actuati 00:00: 00:00 MOUTH [place] on inhaler 00 :00 EVERY 6 Medica l HOURS Branch NEEDED FOR WHEEZING, SHORTNESS OF BREATH OR BRONCHOSPA SMS ALBUTEROL 0 202- No [id number] INHALE 2 [facility] 90 8-24 10-21 PUFFS BY ity of mcg/actuati 00:00: 00:00 MOUTH [place] on inhaler 00 :00 EVERY 6 Medica l HOURS Branch NEEDED FOR WHEEZING, SHORTNESS OF BREATH OR BRONCHOSPA SMS HYDROcodone 0 Yes [id number] 1{tbl} Take 1 [...] Pain. Indication s: chronic pain HYDROcodone 2021-0 2- No [id number] 1{tbl} Take 1 [facility] -acetaminop 8-09 09-07 tablet by it y of hen 7.5-325 00:00: 00:00 mouth [place] mg per 00 :00 every 6 Medical tablet (six) Branch hours as needed for Pain. Indication s: chronic pain QUINAPRIL 2022-0 Yes [id number] 40mg TAKE 1 [facility] 40 mg 8-01 TABLET BY it[facility] of tablet 00:00: MOUTH [place] 00 EVERY Medical MORNING Branch TIZANIDINE 2-0 Yes [id number] TAKE 1 [facility] 4 mg tablet 8-01 TABLET BY ity of 00:00: MOUTH [place] 00 EVERY 8 Medical HOURS Branch NEEDED QUINAPRIL 2022-0 Yes [id number] 40mg TAKE 1 [facility] 40 mg 8-01 TABLET BY ity of tablet 00:00: MOUTH [place] 00 EVERY Medical MORNING Branch TIZANIDINE 2022-0 Yes [id number] TAKE 1 [facility] 4 mg tablet 8-01 TABLET BY ity of 00:00: MOUTH [place] 00 EVERY 8 Medical HOURS Branch NEEDED QUINAPRIL 2022-0 Yes [id number] 40mg TAKE 1 [facility] 40 mg 8-01 TABLET BY ity of tablet 00:00: MOUTH [place] 00 EVERY Medical MORNING Branch TIZANIDINE 2-0 Yes [id number] TAKE 1 [facility] 4 mg tablet 8-01 TABLET BY ity of 00:00: MOUTH EVERY 8 Medical HOURS Branch NEEDED QUINAPRIL 2022-0 Yes [id number] 40mg TAKE 1 [facility] 40 mg 8-01 TABLET BY ity of tablet 00:00: MOUTH EVERY Medical MORNING Branch TIZANIDINE 2-0 Yes [id number] TAKE 1 [facility] 4 mg tablet 8-01 TABLET BY ity of 00:00: MOUTH 00 EVERY 8 Medical HOURS Branch NEEDED QUINAPRIL 2022-0 Yes [id number] 40mg TAKE 1 [facility] 40 mg 8-01 TABLET BY ity of tablet 00:00: MOUTH EVERY Medical MORNING Branch TIZANIDINE 2-0 Yes [id number] TAKE 1 [facility] 4 mg tablet 8-01 TABLET BY ity of 00:00: MOUTH EVERY 8 Medical HOURS Branch NEEDED QUINAPRIL 2022-0 Yes [id number] 40mg TAKE 1 [facility] 40 mg 8-01 TABLET BY ity of tablet 00:00: MOUTH 00 EVERY Medical MORNING Branch TIZANIDINE 2-0 Yes [id number] TAKE 1 [facility] 4 mg tablet 8-01 TABLET BY ity of 00:00: MOUTH EVERY 8 Medical HOURS Branch NEEDED QUINAPRIL 2022-0 Yes [id number] 40mg TAKE 1 [facility] 40 mg 8-01 TABLET BY ity of tablet 00:00: MOUTH 00 EVERY Medical MORNING Branch TIZANIDINE 2-0 Yes [id number] TAKE 1 [facility] 4 mg tablet 8-01 TABLET BY ity of 00:00: MOUTH EVERY 8 Medical HOURS Branch NEEDED QUINAPRIL 2022-0 Yes [id number] 40mg TAKE 1 [facility] 40 mg 8-01 TABLET BY ity of tablet 00:00: MOUTH 00 EVERY Medical MORNING Branch TIZANIDINE 2022-0 Yes [id number] TAKE 1 [facility] 4 mg tablet 8-01 TABLET BY ity of 00:00: MOUTH 00 EVERY 8 Medical HOURS Branch NEEDED QUINAPRIL 2022-0 Yes [id number] 40mg TAKE 1 [facility] 40 mg 8-01 TABLET BY ity of tablet 00:00: MOUTH 00 EVERY Medical MORNING Branch TIZANIDINE 2-0 Yes [id number] TAKE 1 [facility] 4 mg tablet 8-01 TABLET BY ity of 00:00: MOUTH [place] 00 EVERY 8 Medical HOURS Branch NEEDED QUINAPRIL 2022-0 Yes [id number] 40mg TAKE 1 [facility] 40 mg 8-01 TABLET BY ity of tablet 00:00: MOUTH [place] 00 EVERY Medical MORNING Branch TIZANIDINE 2022-0 Yes [id number] TAKE 1 [facility] 4 mg tablet 8-01 TABLET BY ity of 00:00: MOUTH [place] 00 EVERY 8 Medical HOURS Branch NEEDED QUINAPRIL 2022-0 Yes [id number] 40mg TAKE 1 [facility] 40 mg 8-01 TABLET BY ity of tablet 00:00: MOUTH [place] 00 EVERY Medical MORNING Branch TIZANIDINE 2-0 Yes [id number] TAKE 1 [facility] 4 mg tablet 8-01 TABLET BY ity of 00:00: MOUTH [place] 00 EVERY 8 Medical HOURS Branch NEEDED QUINAPRIL 2022-0 Yes [id number] 40mg TAKE 1 [facility] 40 mg 8-01 TABLET BY ity of tablet 00:00: MOUTH [place] 00 EVERY Medical MORNING Branch TIZANIDINE 2-0 Yes [id number] TAKE 1 [facility] 4 mg tablet 8-01 TABLET BY ity of 00:00: MOUTH [place] 00 EVERY 8 Medical HOURS Branch NEEDED QUINAPRIL 2-0 Yes [id number] 40mg TAKE 1 [facility] 40 mg 8-01 TABLET BY ity of tablet 00:00: MOUTH [place] 00 EVERY Medical MORNING Branch TIZANIDINE 2022-0 Yes [id number] TAKE 1 [facility] 4 mg tablet 8-01 TABLET BY ity of 00:00: MOUTH [place] 00 EVERY 8 Medical HOURS Branch NEEDED QUINAPRIL 2022-0 Yes [id number] 40mg TAKE 1 [facility] 40 mg 8-01 TABLET BY ity of tablet 00:00: MOUTH [place] 00 EVERY Medical MORNING Branch TIZANIDINE 2-0 Yes [id number] TAKE 1 [facility] 4 mg tablet 8-01 TABLET BY ity of 00:00: MOUTH [place] 00 EVERY 8 Medical HOURS Branch NEEDED QUINAPRIL 2022-0 Yes [id number] 40mg TAKE 1 [facility] 40 mg 8-01 TABLET BY ity of tablet 00:00: MOUTH [place] 00 EVERY Medical MORNING Branch TIZANIDINE 2-0 Yes [id number] TAKE 1 [facility] 4 mg tablet 8-01 TABLET BY ity of 00:00: MOUTH [place] 00 EVERY 8 Medical HOURS Branch NEEDED QUINAPRIL 2022-0 Yes [id number] 40mg TAKE 1 [facility] 40 mg 8-01 TABLET BY ity of tablet 00:00: MOUTH [place] 00 EVERY Medical MORNING Branch TIZANIDINE 2022-0 Yes [id number] TAKE 1 [facility] 4 mg tablet 8-01 TABLET BY ity of 00:00: MOUTH [place] 00 EVERY 8 Medical HOURS Branch NEEDED QUINAPRIL 2022-0 Yes [id number] 40mg TAKE 1 [facility] 40 mg 8-01 TABLET BY ity of tablet 00:00: MOUTH [place] 00 EVERY Medical MORNING Branch TIZANIDINE 2022-0 Yes [id number] TAKE 1 [facility] 4 mg tablet 8-01 TABLET BY ity of 00:00: MOUTH [place] 00 EVERY 8 Medical HOURS Branch NEEDED QUINAPRIL 2022-0 Yes [id number] 40mg TAKE 1 [facility] 40 mg 8-01 TABLET BY ity of tablet 00:00: MOUTH [place] 00 EVERY Medical MORNING Branch TIZANIDINE 2-0 Yes [id number] TAKE 1 [facility] 4 mg tablet 8-01 TABLET BY ity of 00:00: MOUTH [place] 00 EVERY 8 Medical HOURS Branch NEEDED QUINAPRIL 2022-0 Yes [id number] 40mg TAKE 1 [facility] 40 mg 8-01 TABLET BY ity of tablet 00:00: MOUTH [place] 00 EVERY Medical MORNING Branch TIZANIDINE 2022-0 Yes [id number] TAKE 1 [facility] 4 mg tablet 8-01 TABLET BY ity of 00:00: MOUTH [place] 00 EVERY 8 Medical HOURS Branch NEEDED TIZANIDINE 2022-0 Yes [id number] TAKE 1 [facility] 4 mg tablet 8-01 TABLET BY ity of 00:00: MOUTH [place] 00 EVERY 8 Medical HOURS Branch NEEDED TIZANIDINE 2022-0 Yes [id number] TAKE 1 [facility] 4 mg tablet 8-01 TABLET BY ity of 00:00: MOUTH [place] 00 EVERY 8 Medical HOURS Branch NEEDED TIZANIDINE 2022-0 Yes [id number] TAKE 1 [facility] 4 mg tablet 8-01 TABLET BY ity of 00:00: MOUTH [place] 00 EVERY 8 Medical HOURS Branch NEEDED TIZANIDINE 2022-0 Yes [id number] TAKE 1 [facility] 4 mg tablet 8-01 TABLET BY ity of 00:00: MOUTH [place] 00 EVERY 8 Medical HOURS Branch NEEDED TIZANIDINE 2022-0 2022- No [id number] TAKE 1 [facility] 4 mg tablet 03-03 TABLET BY it y of 00:00: 00:00 MOUTH [place] 00 :00 EVERY 8 Medical HOURS Branch NEEDED QUINAPRIL 2021- No [id number] 40mg TAKE 1 [facility] 40 mg 03-03 TABLET BY ity of tablet 00:00: 00:00 MOUTH [place] 00 :00 EVERY Medical MORNING Branch glipiZIDE Yes [id number] 5mg TAKE 1 [facility] XL 5 mg 24 7-28 TABLET BY ity of hr tablet 00:00: MOUTH 00 DAILY WITH Medical BREAKFAST Branch glipiZIDE Yes [id number] 5mg TAKE 1 [facility] XL 5 mg 24 7-28 TABLET BY ity of hr tablet 00:00: MOUTH 00 DAILY WITH Medical BREAKFAST Branch glipiZIDE Yes [id number] 5mg TAKE 1 [facility] XL 5 mg 24 7-28 TABLET BY ity of hr tablet 00:00: MOUTH 00 DAILY WITH Medical BREAKFAST Branch glipiZIDE 2021-0 Yes [id number] 5mg TAKE 1 [facility] XL 5 mg 24 7-28 TABLET BY ity of hr tablet 00:00: MOUTH 00 DAILY WITH Medical BREAKFAST Branch glipiZIDE 2021-0 Yes [id number] 5mg TAKE 1 [facility] XL 5 mg 24 7-28 TABLET BY ity of hr tablet 00:00: MOUTH 00 DAILY WITH Medical BREAKFAST Branch glipiZIDE 2021-0 Yes [id number] 5mg TAKE 1 [facility] XL 5 mg 24 7-28 TABLET BY ity of hr tablet 00:00: MOUTH 00 DAILY WITH Medical BREAKFAST Branch glipiZIDE 2021-0 Yes [id number] 5mg TAKE 1 [facility] XL 5 mg 24 7-28 TABLET BY ity of hr tablet 00:00: MOUTH 00 DAILY WITH Medical BREAKFAST Branch glipiZIDE 2021-0 Yes [id number] 5mg TAKE 1 [facility] XL 5 mg 24 7-28 TABLET BY ity of hr tablet 00:00: MOUTH 00 DAILY WITH Medical BREAKFAST Branch glipiZIDE 2021-0 Yes [id number] 5mg TAKE 1 [facility] XL 5 mg 24 7-28 TABLET BY ity of hr tablet 00:00: MOUTH [place] 00 DAILY WITH Medical BREAKFAST Branch glipiZIDE 2-0 Yes [id number] 5mg TAKE 1 [facility] XL 5 mg 24 7-28 TABLET BY ity of hr tablet 00:00: MOUTH DAILY WITH Medical BREAKFAST Branch glipiZIDE 2-0 Yes [id number] 5mg TAKE 1 [facility] XL 5 mg 24 7-28 TABLET BY ity of hr tablet 00:00: MOUTH DAILY WITH Medical BREAKFAST Branch glipiZIDE 2-0 Yes [id number] 5mg TAKE 1 [facility] XL 5 mg 24 7-28 TABLET BY ity of hr tablet 00:00: MOUTH DAILY WITH Medical BREAKFAST Branch glipiZIDE 2-0 Yes [id number] 5mg TAKE 1 [facility] XL 5 mg 24 7-28 TABLET BY ity of hr tablet 00:00: MOUTH DAILY WITH Medical BREAKFAST Branch glipiZIDE 2021-0 Yes [id number] 5mg TAKE 1 [facility] XL 5 mg 24 7-28 TABLET BY ity of hr tablet 00:00: MOUTH DAILY WITH Medical BREAKFAST Branch glipiZIDE 2021-0 Yes [id number] 5mg TAKE 1 [facility] XL 5 mg 24 7-28 TABLET BY ity of hr tablet 00:00: MOUTH DAILY WITH Medical BREAKFAST Branch glipiZIDE 2-0 Yes [id number] 5mg TAKE 1 [facility] XL 5 mg 24 7-28 TABLET BY ity of hr tablet 00:00: MOUTH DAILY WITH Medical BREAKFAST Branch glipiZIDE 2-0 Yes [id number] 5mg TAKE 1 [facility] XL 5 mg 24 7-28 TABLET BY ity of hr tablet 00:00: MOUTH DAILY WITH Medical BREAKFAST Branch glipiZIDE 2-0 Yes [id number] 5mg TAKE 1 [facility] XL 5 mg 24 7-28 TABLET BY ity of hr tablet 00:00: MOUTH DAILY WITH Medical BREAKFAST Branch glipiZIDE 2-0 Yes [id number] 5mg TAKE 1 [facility] XL 5 mg 24 7-28 TABLET BY ity of hr tablet 00:00: MOUTH 00 DAILY WITH Medical BREAKFAST Branch glipiZIDE 2-0 Yes [id number] 5mg TAKE 1 [facility] XL 5 mg 24 7-28 TABLET BY ity of hr tablet 00:00: MOUTH 00 DAILY WITH [facility] Branch glipiZIDE 2021-0 2021- No [id number] 5mg TAKE 1 [facility] XL 5 mg 24 7-28 10-21 TABLET BY ity of hr tablet 00:00: 00:00 MOUTH [place] 00 :00 DAILY WITH Medical BREAKFAST Branch glipiZIDE 2021-0 2- No [id number] 5mg TAKE 1 [facility] XL 5 mg 24 7-28 10-21 TABLET BY ity of hr tablet 00:00: 00:00 MOUTH [place] 00 :00 DAILY WITH [facility] BREAKFAST Branch glipiZIDE 2021-0 2021- No [id number] 5mg TAKE 1 [facility] XL 5 mg 24 7-28 10-21 TABLET BY ity of hr tablet 00:00: 00:00 MOUTH [place] 00 :00 DAILY WITH [facility] Branch glipiZIDE 2021-0 2021- No [id number] 5mg TAKE 1 [facility] XL 5 mg 24 7- 10-21 TABLET BY ity of hr tablet 00:00: 00:00 MOUTH [place] 00 :00 DAILY WITH [facility] Branch clonazePAM 2021-0 Yes [id number] 1mg Take 1 [facility] 1 mg tablet 7-25 tablet by ity of 00:00: mouth in [place] the Medical morning Branch and 1 tablet at noon and 1 tablet in the evening. clonazePAM 2021-0 Yes [id number] 1mg Take 1 [facility] 1 mg tablet 7-25 tablet by ity of 00:00: mouth in [place] the Medical morning Branch and 1 tablet at noon and 1 tablet in the evening. clonazePAM 2021-0 Yes [id number] 1mg Take 1 [facility] 1 mg tablet 7-25 tablet by ity of 00:00: mouth in [place] the Medical morning Branch and 1 tablet at noon and 1 tablet in the evening. clonazePAM 2021-0 Yes [id number] 1mg Take 1 [facility] 1 mg tablet 7-25 tablet by ity of 00:00: mouth in [place] the Medical morning Branch and 1 tablet at noon and 1 tablet in the evening. clonazePAM 2-0 Yes [id number] 1mg Take 1 [facility] 1 mg tablet 7-25 tablet by ity of 00:00: mouth in [place] the Medical morning Branch and 1 tablet at noon and 1 tablet in the evening. clonazePAM 2022-0 Yes [id number] 1mg Take 1 [facility] 1 mg tablet 7-25 tablet by ity of 00:00: mouth in [place] 00 the Medical morning Branch and 1 tablet at noon and 1 tablet in the evening. clonazePAM 2021- No [id number] 1mg Take 1 [facility] 1 mg tablet 7- tablet by it y of 00:00: 00:00 mouth in [place] 00 :00 the Medical morning Branch and 1 tablet at noon and 1 tablet in the evening. nirmatrelvi Yes [id number] 3{tbl} Take 3 [facility] r-ritonavir 7-13 tablets by it y of (PAXLOVID, 00:00: mouth in [place] as EUA,) 150 00 the Medical mg x 2- 100 morning Branc h mg tablet and 3 tablets in the evening. nirmatrelvi Yes [id number] 3{tbl} Take 3 [facility] r-ritonavir 7-13 tablets by it y of (PAXLOVID, 00:00: mouth in [place] as EUA,) 150 00 the Medical mg x 2- 100 morning Branc h mg tablet and 3 tablets in the evening. nirmatrelvi Yes [id number] 3{tbl} Take 3 [facility] r-ritonavir 7-13 tablets by it y of (PAXLOVID, 00:00: mouth in [place] as EUA,) 150 00 the Medical mg x 2- 100 morning Branc h mg tablet and 3 tablets in the evening. nirmatrelvi Yes [id number] 3{tbl} Take 3 [facility] r-ritonavir 7-13 tablets by it y of (PAXLOVID, 00:00: mouth in [place] as EUA,) 150 00 the Medical mg x 2- 100 morning Branc h mg tablet and 3 tablets in the evening. nirmatrelvi 0 Yes [id number] 3{tbl} Take 3 [facility] r-ritonavir 7-13 tablets by it y of (PAXLOVID, 00:00: mouth in [place] as EUA,) 150 00 the Medical mg x 2- 100 morning Branc h mg tablet and 3 tablets in the evening. nirmatrelvi 0 Yes [id number] 3{tbl} Take 3 [facility] r-ritonavir 7-13 tablets by it y of (PAXLOVID, 00:00: mouth in [place] as EUA,) 150 00 the Medical mg x 2- 100 morning Branc h mg tablet and 3 tablets [facility] the evening. [facility] Yes [id number] 3{tbl} Take 3 [facility] r-ritonavir 7-13 tablets by it y of (PAXLOVID, 00:00: mouth in [place] as EUA,) 150 00 the Medical mg x 2- 100 morning Branc h mg tablet and 3 tablets in the evening. nircttrelvi 0 Yes [id number] 3{tbl} Take 3 [facility] r-ritonavir 7-13 tablets by it y of (PAXLOVID, 00:00: mouth in [place] as EUA,) 150 00 the Medical mg x 2- 100 morning Branc h mg tablet and 3 tablets in the evening. [facility] 0 Yes [id number] 3{tbl} Take 3 [facility] r-ritonavir 7-13 tablets by it y of (PAXLOVID, 00:00: mouth in [place] as EUA,) 150 00 the Medical mg x 2- 100 morning Branc h mg tablet and 3 tablets in the evening. [facility] 0 Yes [id number] 3{tbl} Take 3 Univers r-ritonavir 7-13 tablets by it y of (PAXLOVID, 00:00: mouth in [place] as EUA,) 150 00 the Medical mg x 2- 100 morning Branc h mg tablet and 3 tablets in the evening. [facility] 0 Yes [id number] 3{tbl} Take 3 [facility] r-ritonavir 7-13 tablets by it y of (PAXLOVID, 00:00: mouth in [place] as EUA,) 150 00 the Medical mg x 2- 100 morning Branc h mg tablet and 3 tablets in the evening. [facility] 0 Yes [id number] 3{tbl} Take 3 Univers r-ritonavir 7-13 tablets by it y of (PAXLOVID, 00:00: mouth in [place] as EUA,) 150 00 the Medical mg x 2- 100 morning Branc h mg tablet and 3 tablets in the evening. nirmatrelvi 2021-0 Yes [id number] 3{tbl} Take 3 [facility] r-ritonavir 7-13 tablets by it y of (PAXLOVID, 00:00: mouth in [place] as EUA,) 150 00 the Medical mg x 2- 100 morning Branc h mg tablet and 3 tablets in the evening. nirmatrelvi 2021-0 Yes [id number] 3{tbl} Take 3 [facility] r-ritonavir 7-13 tablets by it y of (PAXLOVID, 00:00: mouth in [place] as EUA,) 150 00 the Medical mg x 2- 100 morning Branc h mg tablet and 3 tablets in the evening. nirmatrelvi 2021-0 Yes [id number] 3{tbl} Take 3 [facility] r-ritonavir 7-13 tablets by it y of (PAXLOVID, 00:00: mouth in [place] as EUA,) 150 00 the Medical mg x 2- 100 morning Branc h mg tablet and 3 tablets in the evening. nirmatrelvi 2021-0 Yes [id number] 3{tbl} Take 3 [facility] r-ritonavir 7-13 tablets by it y of (PAXLOVID, 00:00: mouth in [place] as EUA,) 150 00 the Medical mg x 2- 100 morning Branc h mg tablet and 3 tablets in the evening. nirmatrelvi 2021-0 Yes [id number] 3{tbl} Take 3 [facility] r-ritonavir 7-13 tablets by it y of (PAXLOVID, 00:00: mouth in [place] as EUA,) 150 00 the Medical mg x 2- 100 morning Branc h mg tablet and 3 tablets in the evening. nirmatrelvi 2021-0 Yes [id number] 3{tbl} Take 3 [facility] r-ritonavir 7-13 tablets by it y of (PAXLOVID, 00:00: mouth in [place] as EUA,) 150 00 the Medical mg x 2- 100 morning Branc h mg tablet and 3 tablets in the evening. nirmatrelvi 2021-0 Yes [id number] 3{tbl} Take 3 [facility] r-ritonavir 7-13 tablets by it y of (PAXLOVID, 00:00: mouth in [place] as EUA,) 150 00 the Medical mg x 2- 100 morning Branc h mg tablet and 3 tablets in the evening. nirmatrelvi Yes [id number] 3{tbl} Take 3 [facility] r-ritonavir 7-13 tablets by it y of (PAXLOVID, 00:00: mouth in [place] as EUA,) 150 00 the Medical mg x 2- 100 morning Branc h mg tablet and 3 tablets in the evening. nirmatrelvi 2021- No [id number] 3{tbl} Take 3 [facility] r-ritonavir 7-13 10-21 tablets by i ty of (PAXLOVID, 00:00: 00:00 mouth in [place] EUA,) 150 00 :00 the Medical mg x 2- 100 morning Branc h mg tablet and 3 tablets in the evening. nirmatrelvi 2021- No [id number] 3{tbl} Take 3 [facility] r-ritonavir 7-13 10-21 tablets by i ty of (PAXLOVID, 00:00: 00:00 mouth in [place] EUA,) 150 00 :00 the Medical mg x 2- 100 morning Branc h mg tablet and 3 tablets in the evening. nirmatrelvi 2021- No [id number] 3{tbl} Take 3 [facility] r-ritonavir 7-13 10-21 tablets by i ty of (PAXLOVID, 00:00: 00:00 mouth in [place] EUA,) 150 00 :00 the Medical mg x 2- 100 morning Branc h mg tablet and 3 tablets in the evening. meloxicam 2-0 Yes 7.5mg Take 1 [facility] 7.5 mg 7-12 tablet by ity of tablet 00:00: mouth in [place] 00 the Medical morning. Branch meloxicam 2022-0 Yes 7.5mg Take 1 [facility] rs 7.5 mg 7-12 tablet by ity of tablet 00:00: mouth in [place] 00 the Medical morning. Branch meloxicam 2022-0 Yes 7.5mg Take 1 [facility] 7.5 mg 7-12 tablet by ity of tablet 00:00: mouth in [place] 00 the Medical morning. Branch meloxicam 2022-0 Yes 7.5mg Take 1 [facility] 7.5 mg 7-12 tablet by ity of tablet 00:00: mouth in [place] 00 the Medical morning. Branch meloxicam 2022-0 Yes 7.5mg Take 1 [facility] 7.5 mg 7-12 tablet by ity of tablet 00:00: mouth in [place] 00 the Medical morning. Branch meloxicam 2022-0 Yes 7.5mg Take 1 [facility] 7.5 mg 7-12 tablet by ity of tablet 00:00: mouth in [place] 00 the Medical morning. Branch meloxicam 2022-0 Yes 7.5mg Take 1 [facility] 7.5 mg 7-12 tablet by ity of tablet 00:00: mouth in [place] 00 the Medical morning. Branch meloxicam 2022-0 Yes 7.5mg Take 1 [facility] 7.5 mg 7-12 tablet by ity of tablet 00:00: mouth in [place] 00 the Medical morning. Branch meloxicam 2022-0 Yes 7.5mg Take 1 [facility] 7.5 mg 7-12 tablet by ity of tablet 00:00: mouth in [place] 00 the Medical morning. Branch meloxicam 2022-0 Yes 7.5mg Take 1 [facility] rs 7.5 mg 7-12 tablet by ity of tablet 00:00: mouth in [place] 00 the Medical morning. Branch meloxicam 2022-0 Yes 7.5mg Take 1 [facility] rs 7.5 mg 7-12 tablet by ity of tablet 00:00: mouth in [place] 00 the Medical morning. Branch meloxicam 2022-0 Yes 7.5mg Take 1 [facility] 7.5 mg 7-12 tablet by ity of tablet 00:00: mouth in [place] 00 the Medical morning. Branch meloxicam 2022-0 Yes 7.5mg Take 1 [facility] 7.5 mg 7-12 tablet by ity of tablet 00:00: mouth in [place] 00 the Medical morning. Branch meloxicam 2022-0 Yes 7.5mg Take 1 [facility] rs 7.5 mg 7-12 tablet by ity of tablet 00:00: mouth in [place] 00 the Medical morning. Branch meloxicam 2022-0 Yes 7.5mg Take 1 [facility] rs 7.5 mg 7-12 tablet by ity of tablet 00:00: mouth in [place] 00 the Medical morning. Branch meloxicam 2022-0 Yes 7.5mg Take 1 [facility] rs 7.5 mg 7-12 tablet by ity of tablet 00:00: mouth in [place] 00 the Medical morning. Branch meloxicam 2022-0 Yes 7.5mg Take 1 [facility] rs 7.5 mg 7-12 tablet by ity of tablet 00:00: mouth in [place] 00 the Medical morning. Branch meloxicam 2022-0 Yes 7.5mg Take 1 [facility] rs 7.5 mg 7-12 tablet by ity of tablet 00:00: mouth in [place] the Medical morning. Branch meloxicam 2022-0 Yes 7.5mg Take 1 [facility] rs 7.5 mg 7-12 tablet by ity of tablet 00:00: mouth in [place] the Medical morning. Branch meloxicam 2022-0 Yes 7.5mg Take 1 [facility] rs 7.5 mg 7-12 tablet by ity of tablet 00:00: mouth in [place] the [facility] morning. Branch meloxicam 2022-0 Yes 7.5mg Take 1 [facility] rs 7.5 mg 7-12 tablet by [facility] of tablet 00:00: mouth in [place] the [facility] morning. Branch meloxicam 2022-0 Yes 7.5mg Take 1 [facility] 7.5 mg 7-12 tablet by [facility] of tablet 00:00: mouth in [place] the [facility] morning. Branch meloxicam 2022-0 Yes 7.5mg Take 1 [facility] 7.5 mg 7-12 tablet by [facility] of tablet 00:00: mouth in [place] the [facility] morning. Branch meloxicam 2022-0 Yes 7.5mg Take 1 [facility] 7.5 mg 7-12 tablet by [facility] of tablet 00:00: mouth in [place] the [facility] morning. Branch meloxicam 2022-0 Yes 7.5mg Take 1 [facility] 7.5 mg 7-12 tablet by [facility] of tablet 00:00: mouth in [place] the [facility] morning. Branch meloxicam 2022-0 Yes 7.5mg Take 1 [facility] 7.5 mg 7-12 tablet by [facility] of tablet 00:00: mouth in [place] 00 the Medical morning. Branch meloxicam 2022-0 Yes 7.5mg Take 1 [facility] rs 7.5 mg 7-12 tablet by [facility] of tablet 00:00: mouth in [place] 00 the Medical morning. Branch meloxicam 2022-0 Yes 7.5mg Take 1 [facility] 7.5 mg 7-12 tablet by [facility] of tablet 00:00: mouth in [place] the [facility] morning. Branch meloxicam 2022-0 Yes 7.5mg Take 1 [facility] 7.5 mg 7-12 tablet by [facility] of tablet 00:00: mouth in [place] 00 the Medical morning. Branch meloxicam 2022-0 Yes 7.5mg Take 1 [facility] rs 7.5 mg 7-12 tablet by [facility] of tablet 00:00: mouth in [place] 00 the Medical morning. Branch meloxicam 2022-0 Yes 7.5mg Take 1 [facility] rs 7.5 mg 7-12 tablet by [facility] of tablet 00:00: mouth in [place] the [facility] morning. Branch meloxicam 2022-0 Yes 7.5mg Take 1 [facility] 7.5 mg 7-12 tablet by [facility] of tablet 00:00: mouth in [place] the [facility] morning. Branch meloxicam 2022-0 Yes 7.5mg Take 1 [facility] rs 7.5 mg 7-12 tablet by [facility] of tablet 00:00: mouth in [place] the [facility] morning. Branch meloxicam 2022-0 Yes 7.5mg Take 1 [facility] rs 7.5 mg 7-12 tablet by [facility] of tablet 00:00: mouth in [place] the [facility] morning. Branch meloxicam 2022-0 Yes 7.5mg Take 1 [facility] rs 7.5 mg 7-12 tablet by [facility] of tablet 00:00: mouth in [place] the [facility] morning. Branch meloxicam 2022-0 Yes 7.5mg Take 1 [facility] rs 7.5 mg 7-12 tablet by [facility] of tablet 00:00: mouth in [place] 00 the Medical morning. Branch meloxicam 2022-0 Yes 7.5mg Take 1 [facility] rs 7.5 mg 7-12 tablet by [facility] of tablet 00:00: mouth in [place] 00 the Medical morning. Branch meloxicam 2022-0 Yes 7.5mg Take 1 [facility] 7.5 mg 7-12 tablet by [facility] of tablet 00:00: mouth in [place] 00 the Medical morning. Branch meloxicam 2022-0 Yes 7.5mg Take 1 [facility] rs 7.5 mg 7-12 tablet by [facility] of tablet 00:00: mouth in [place] 00 the Medical morning. Branch meloxicam 2022-0 Yes 7.5mg Take 1 [facility] rs 7.5 mg 7-12 tablet by [facility] of tablet 00:00: mouth in [place] 00 the Medical morning. Branch meloxicam 2022-0 Yes 7.5mg Take 1 [facility] rs 7.5 mg 7-12 tablet by [facility]y of tablet 00:00: mouth in [place] 00 the Medical morning. Branch meloxicam 2022-0 Yes 7.5mg Take 1 [facility] rs 7.5 mg 7-12 tablet by [facility]y of tablet 00:00: mouth in [place] 00 the Medical morning. Branch meloxicam 2022-0 Yes 7.5mg Take 1 [facility] rs 7.5 mg 7-12 tablet by [facility] of tablet 00:00: mouth in [place] 00 the Medical morning. Branch meloxicam 2022-0 Yes 7.5mg Take 1 [facility] rs 7.5 mg 7-12 tablet by [facility]y of tablet 00:00: mouth in [place] the [facility] morning. Branch meloxicam 2022-0 Yes 7.5mg Take 1 [facility] rs 7.5 mg 7-12 tablet by [facility] of tablet 00:00: mouth in [place] 00 the Medical morning. Branch meloxicam 2022-0 Yes 7.5mg Take 1 [facility] rs 7.5 mg 7-12 tablet by [facility]y of tablet 00:00: mouth in [place] 00 the Medical morning. Branch meloxicam 2022-0 Yes 7.5mg Take 1 [facility] rs 7.5 mg 7-12 tablet by [facility]y of tablet 00:00: mouth in [place] 00 the Medical morning. Branch meloxicam 2022-0 Yes 7.5mg Take 1 [facility] rs 7.5 mg 7-12 tablet by ity of tablet 00:00: mouth in [place] 00 the Medical morning. Branch meloxicam 2022-0 Yes 7.5mg Take 1 [facility] rs 7.5 mg 7-12 tablet by [facility]y of tablet 00:00: mouth in [place] 00 the Medical morning. Branch meloxicam 2022-0 Yes 7.5mg Take 1 [facility] rs 7.5 mg 7-12 tablet by [facility]y of tablet 00:00: mouth in [place] 00 the Medical morning. Branch meloxicam 2022-0 Yes 7.5mg Take 1 [facility] rs 7.5 mg 7-12 tablet by [facility]y of tablet 00:00: mouth in [place] 00 the Medical morning. Branch meloxicam 2022-0 Yes 7.5mg Take 1 [facility] rs 7.5 mg 7-12 tablet by ity of tablet 00:00: mouth in [place] the [facility] morning. Branch meloxicam 2022-0 Yes 7.5mg Take 1 [facility] rs 7.5 mg 7-12 tablet by [facility] of tablet 00:00: mouth in [place] the [facility] morning. Branch meloxicam 2022-0 Yes 7.5mg Take 1 [facility] rs 7.5 mg 7-12 tablet by [facility]y of tablet 00:00: mouth in [place] the [facility] morning. Branch meloxicam 2022-0 Yes 7.5mg Take 1 [facility] rs 7.5 mg 7-12 tablet by [facility]y of tablet 00:00: mouth in [place] the [facility] morning. Branch meloxicam 2022-0 Yes 7.5mg Take 1 [facility] rs 7.5 mg 7-12 tablet by [facility]y of tablet 00:00: mouth in [place] the [facility] morning. Branch meloxicam 2022-0 Yes 7.5mg Take 1 [facility] rs 7.5 mg 7-12 tablet by [facility]y of tablet 00:00: mouth in [place] the [facility] morning. Branch meloxicam 2022-0 Yes 7.5mg Take 1 [facility] rs 7.5 mg 7-12 tablet by [facility]y of tablet 00:00: mouth in [place] the [facility] morning. Branch meloxicam 2022-0 Yes 7.5mg Take 1 [facility] rs 7.5 mg 7-12 tablet by [facility]y of tablet 00:00: mouth in [place] the [facility] morning. Branch meloxicam 2022-0 Yes 7.5mg Take 1 [facility] rs 7.5 mg 7-12 tablet by [facility]y of tablet 00:00: mouth in [place] 00 the Medical morning. Branch meloxicam 2022-0 Yes 7.5mg Take 1 [facility] rs 7.5 mg 7-12 tablet by [facility] of tablet 00:00: mouth in [place] 00 the Medical morning. Branch meloxicam 2022-0 Yes 7.5mg Take 1 [facility] rs 7.5 mg 7-12 tablet by [facility]y of tablet 00:00: mouth in [place] the [facility] morning. Branch meloxicam 2022-0 Yes 7.5mg Take 1 [facility] rs 7.5 mg 7-12 tablet by [facility] of tablet 00:00: mouth in [place] the [facility] morning. Branch meloxicam 2022-0 Yes 7.5mg Take 1 [facility] rs 7.5 mg 7-12 tablet by [facility] of tablet 00:00: mouth in [place] the [facility] morning. Branch meloxicam 2022-0 Yes 7.5mg Take 1 [facility] rs 7.5 mg 7-12 tablet by [facility] of tablet 00:00: mouth in [place] the [facility] morning. Branch meloxicam 2022-0 Yes 7.5mg Take 1 [facility] rs 7.5 mg 7-12 tablet by [facility]y of tablet 00:00: mouth in [place] the [facility] morning. Branch meloxicam 2022-0 Yes 7.5mg Take 1 [facility] rs 7.5 mg 7-12 tablet by [facility] of tablet 00:00: mouth in [place] the [facility] morning. Branch meloxicam 2022-0 Yes 7.5mg Take 1 [facility] rs 7.5 mg 7-12 tablet by [facility] of tablet 00:00: mouth in [place] the [facility] morning. Branch meloxicam 2022-0 Yes 7.5mg Take 1 [facility] rs 7.5 mg 7-12 tablet by [facility] of tablet 00:00: mouth in [place] the [facility] morning. Branch meloxicam 2022-0 Yes 7.5mg Take 1 [facility] rs 7.5 mg 7-12 tablet by [facility]y of tablet 00:00: mouth in [place] the [facility] morning. Branch meloxicam 2022-0 Yes 7.5mg Take 1 [facility] rs 7.5 mg 7-12 tablet by [facility]y of tablet 00:00: mouth in [place] the [facility] morning. Branch meloxicam 2022-0 Yes 7.5mg Take 1 [facility] rs 7.5 mg 7-12 tablet by [facility] of tablet 00:00: mouth in [place] 00 the Medical morning. Branch HYDROcodone 2-0 Yes 2745 1{tbl} Take 1 [facility] -acetaminop 7-11 tablet by ity of hen 7.5-325 00:00: mouth [place] mg per 00 every 6 Medical tablet (six) Branch hours as needed for Pain. Indication s: chronic pain HYDROcodone 2021- No 2745 1{tbl} Take 1 [facility] -acetaminop 02-10 tablet by it y of hen 7.5-325 00:00: 00:[place] per 00 :00 every 6 Medical tablet (six) Branch hours as needed for Pain. Indication s: chronic pain albuterol Yes [id number] INHALE 2 [facility] 90 7-06 PUFFS BY [facility]y of mcg/actuati 00:00: MOUTH [place] on inhaler 00 EVERY 6 Medica l HOURS Branch NEEDED FOR WHEEZING, SHORTNESS OF BREATH OR BRONCHOSPA SMS chlorhexidi Yes [id number] 15mL [facility] ne 0.12 % 7-06 spit out [facility] of mouthwash 00:00: 15 mL 2 [place] 00 (two) Medical times Branch daily. albuterol Yes [id number] INHALE 2 [facility] 90 7-06 PUFFS BY [facility]y of mcg/actuati 00:00: MOUTH [place] on inhaler 00 EVERY 6 Medica l HOURS Branch NEEDED FOR WHEEZING, SHORTNESS OF BREATH OR BRONCHOSPA SMS chlorhexidi 0 Yes [id number] 15mL [facility] ne 0.12 % 7-06 spit out ity of mouthwash 00:00: 15 mL 2 [place] 00 (two) Medical times Branch daily. chlorhexidi 0 Yes [id number] 15mL [facility] ne 0.12 % 7-06 spit out [facility]y of mouthwash 00:00: 15 mL 2 [place] 00 (two) Medical times Branch daily. chlorhexidi 0 Yes [id number] 15mL [facility] ne 0.12 % 7-06 spit out [facility]y of mouthwash 00:00: 15 mL 2 [place] 00 (two) Medical times Branch daily. chlorhexidi 0 Yes [id number] 15mL [facility] ne 0.12 % 7-06 spit out ity of mouthwash 00:00: 15 mL 2 [place] 00 (two) Medical times Branch daily. chlorhexidi 2022-0 Yes [id number] 15mL [facility] ne 0.12 % 7-06 spit out [facility]y of mouthwash 00:00: 15 mL 2 [place] 00 (two) Medical times Branch daily. chlorhexidi 2022-0 Yes [id number] 15mL [facility] ne 0.12 % 7-06 spit out ity of mouthwash 00:00: 15 mL 2 [place] 00 (two) Medical times Branch daily. chlorhexidi 2022-0 Yes [id number] 15mL [facility] ne 0.12 % 7-06 spit out ity of mouthwash 00:00: 15 mL 2 [place] 00 (two) Medical times Branch daily. chlorhexidi 2022-0 Yes [id number] 15mL [facility] ne 0.12 % 7-06 spit out ity of mouthwash 00:00: 15 mL 2 [place] 00 (two) Medical times Branch daily. chlorhexidi 2022-0 Yes [id number] 15mL [facility] ne 0.12 % 7-06 spit out ity of mouthwash 00:00: 15 mL 2 [place] 00 (two) Medical times Branch daily. chlorhexidi 2022-0 Yes [id number] 15mL [facility] ne 0.12 % 7-06 spit out ity of mouthwash 00:00: 15 mL 2 [place] 00 (two) Medical times Branch daily. chlorhexidi 2022-0 Yes [id number] 15mL [facility] ne 0.12 % 7-06 spit out ity of mouthwash 00:00: 15 mL 2 [place] 00 (two) Medical times Branch daily. chlorhexidi 2022-0 Yes [id number] 15mL [facility] ne 0.12 % 7-06 spit out ity of mouthwash 00:00: 15 mL 2 [place] 00 (two) Medical times Branch daily. chlorhexidi 2022-0 Yes [id number] 15mL [facility] ne 0.12 % 7-06 spit out ity of mouthwash 00:00: 15 mL 2 [place] 00 (two) Medical times Branch daily. chlorhexidi 2022-0 Yes [id number] 15mL [facility] ne 0.12 % 7-06 spit out ity of mouthwash 00:00: 15 mL 2 [place] 00 (two) Medical times Branch daily. chlorhexidi 2022-0 Yes [id number] 15mL [facility] ne 0.12 % 7-06 spit out ity of mouthwash 00:00: 15 mL 2 [place] 00 (two) Medical times Branch daily. chlorhexidi 2022-0 Yes [id number] 15mL [facility] ne 0.12 % 7-06 spit out ity of mouthwash 00:00: 15 mL 2 [place] 00 (two) Medical times Branch daily. chlorhexidi 2022-0 Yes [id number] 15mL [facility] ne 0.12 % 7-06 spit out [facility]y of mouthwash 00:00: 15 mL 2 [place] 00 (two) Medical times Branch daily. chlorhexidi 2022-0 Yes [id number] 15mL [facility] ne 0.12 % 7-06 spit out ity of mouthwash 00:00: 15 mL 2 [place] 00 (two) Medical times Branch daily. chlorhexidi 2022-0 Yes [id number] 15mL [facility] ne 0.12 % 7-06 spit out [facility]y of mouthwash 00:00: 15 mL 2 [place] 00 (two) Medical times Branch daily. chlorhexidi 2022-0 Yes [id number] 15mL [facility] ne 0.12 % 7-06 spit out ity of mouthwash 00:00: 15 mL 2 [place] 00 (two) Medical times Branch daily. chlorhexidi 2022-0 Yes [id number] 15mL [facility] ne 0.12 % 7-06 spit out ity of mouthwash 00:00: 15 mL 2 [place] 00 (two) Medical times Branch daily. chlorhexidi 2022-0 Yes [id number] 15mL [facility] ne 0.12 % 7-06 spit out ity of mouthwash 00:00: 15 mL 2 [place] 00 (two) Medical times Branch daily. chlorhexidi 2022-0 Yes [id number] 15mL [facility] ne 0.12 % 7-06 spit out ity of mouthwash 00:00: 15 mL 2 [place] 00 (two) Medical times Branch daily. chlorhexidi 2022-0 Yes [id number] 15mL [facility] ne 0.12 % 7-06 spit out [facility]y of mouthwash 00:00: 15 mL 2 [place] 00 (two) Medical times Branch daily. chlorhexidi 2022-0 Yes [id number] 15mL [facility] ne 0.12 % 7-06 spit out ity of mouthwash 00:00: 15 mL 2 [place] 00 (two) Medical times Branch daily. chlorhexidi 2022-0 Yes [id number] 15mL [facility] ne 0.12 % 7-06 spit out [facility]y of mouthwash 00:00: 15 mL 2 [place] 00 (two) Medical times Branch daily. chlorhexidi 2022-0 Yes [id number] 15mL [facility] ne 0.12 % 7-06 spit out [facility]y of mouthwash 00:00: 15 mL 2 [place] 00 (two) Medical times Branch daily. chlorhexidi 2022-0 Yes [id number] 15mL [facility] ne 0.12 % 7-06 spit out [facility]y of mouthwash 00:00: 15 mL 2 [place] 00 (two) Medical times Branch daily. chlorhexidi 2022-0 Yes [id number] 15mL [facility] ne 0.12 % 7-06 spit out [facility]y of mouthwash 00:00: 15 mL 2 [place] 00 (two) Medical times Branch daily. chlorhexidi 2022-0 Yes [id number] 15mL [facility] ne 0.12 % 7-06 spit out [facility]y of mouthwash 00:00: 15 mL 2 [place] 00 (two) Medical times Branch daily. chlorhexidi 2022-0 Yes [id number] 15mL [facility] ne 0.12 % 7-06 spit out [facility]y of mouthwash 00:00: 15 mL 2 [place] 00 (two) Medical times Branch daily. chlorhexidi 2022-0 Yes [id number] 15mL [facility] ne 0.12 % 7-06 spit out [facility]y of mouthwash 00:00: 15 mL 2 [place] 00 (two) Medical times Branch daily. chlorhexidi 2022-0 Yes [id number] 15mL [facility] ne 0.12 % 7-06 spit out [facility]y of mouthwash 00:00: 15 mL 2 [place] 00 (two) Medical times Branch daily. chlorhexidi 2022-0 Yes [id number] 15mL [facility] ne 0.12 % 7-06 spit out ity of mouthwash 00:00: 15 mL 2 [place] 00 (two) Medical times Branch daily. chlorhexidi 2022-0 Yes [id number] 15mL [facility] ne 0.12 % 7-06 spit out [facility]y of mouthwash 00:00: 15 mL 2 [place] 00 (two) Medical times Branch daily. chlorhexidi 2022-0 Yes [id number] 15mL [facility] ne 0.12 % 7-06 spit out ity of mouthwash 00:00: 15 mL 2 [place] 00 (two) Medical times Branch daily. chlorhexidi 2022-0 Yes [id number] 15mL [facility] ne 0.12 % 7-06 spit out ity of mouthwash 00:00: 15 mL 2 [place] 00 (two) Medical times Branch daily. chlorhexidi 2022-0 Yes [id number] 15mL [facility] ne 0.12 % 7-06 spit out ity of mouthwash 00:00: 15 mL 2 [place] 00 (two) Medical times Branch daily. chlorhexidi 2022-0 Yes [id number] 15mL [facility] ne 0.12 % 7-06 spit out ity of mouthwash 00:00: 15 mL 2 [place] 00 (two) Medical times Branch daily. chlorhexidi 2022-0 Yes [id number] 15mL [facility] ne 0.12 % 7-06 spit out ity of mouthwash 00:00: 15 mL 2 [place] 00 (two) Medical times Branch daily. chlorhexidi 2022-0 Yes [id number] 15mL [facility] ne 0.12 % 7-06 spit out ity of mouthwash 00:00: 15 mL 2 [place] 00 (two) Medical times Branch daily. chlorhexidi 2022-0 Yes [id number] 15mL [facility] ne 0.12 % 7-06 spit out ity of mouthwash 00:00: 15 mL 2 [place] 00 (two) Medical times Branch daily. chlorhexidi 2022-0 Yes [id number] 15mL [facility] ne 0.12 % 7-06 spit out ity of mouthwash 00:00: 15 mL 2 [place] 00 (two) Medical times Branch daily. chlorhexidi 2022-0 Yes [id number] 15mL [facility] ne 0.12 % 7-06 spit out ity of mouthwash 00:00: 15 mL 2 [place] 00 (two) Medical times Branch daily. chlorhexidi 2022-0 Yes [id number] 15mL [facility] ne 0.12 % 7-06 spit out ity of mouthwash 00:00: 15 mL 2 [place] 00 (two) Medical times Branch daily. chlorhexidi 2022-0 Yes [id number] 15mL [facility] ne 0.12 % 7-06 spit out ity of mouthwash 00:00: 15 mL 2 [place] 00 (two) Medical times Branch daily. chlorhexidi 2022-0 Yes [id number] 15mL [facility] ne 0.12 % 7-06 spit out ity of mouthwash 00:00: 15 mL 2 [place] 00 (two) Medical times Branch daily. chlorhexidi 2022-0 Yes [id number] 15mL [facility] ne 0.12 % 7-06 spit out ity of mouthwash 00:00: 15 mL 2 [place] 00 (two) Medical times Branch daily. chlorhexidi 2022-0 Yes [id number] 15mL [facility] ne 0.12 % 7-06 spit out ity of mouthwash 00:00: 15 mL 2 [place] 00 (two) Medical times Branch daily. chlorhexidi 2022-0 Yes [id number] 15mL [facility] ne 0.12 % 7-06 spit out ity of mouthwash 00:00: 15 mL 2 [place] 00 (two) Medical times Branch daily. chlorhexidi 2022-0 Yes [id number] 15mL [facility] ne 0.12 % 7-06 spit out ity of mouthwash 00:00: 15 mL 2 [place] 00 (two) Medical times Branch daily. chlorhexidi 2022-0 Yes [id number] 15mL [facility] ne 0.12 % 7-06 spit out ity of mouthwash 00:00: 15 mL 2 [place] 00 (two) Medical times Branch daily. chlorhexidi 2022-0 Yes [id number] 15mL [facility] ne 0.12 % 7-06 spit out ity of mouthwash 00:00: 15 mL 2 [place] 00 (two) Medical times Branch daily. chlorhexidi 2022-0 Yes [id number] 15mL [facility] ne 0.12 % 7-06 spit out ity of mouthwash 00:00: 15 mL 2 [place] 00 (two) Medical times Branch daily. chlorhexidi 2022-0 Yes [id number] 15mL [facility] ne 0.12 % 7-06 spit out ity of mouthwash 00:00: 15 mL 2 [place] 00 (two) Medical times Branch daily. chlorhexidi 2022-0 Yes [id number] 15mL [facility] ne 0.12 % 7-06 spit out ity of mouthwash 00:00: 15 mL 2 [place] 00 (two) Medical times Branch daily. chlorhexidi 2022-0 Yes [id number] 15mL [facility] ne 0.12 % 7-06 spit out ity of mouthwash 00:00: 15 mL 2 [place] 00 (two) Medical times Branch daily. chlorhexidi 2022-0 Yes [id number] 15mL [facility] ne 0.12 % 7-06 spit out ity of mouthwash 00:00: 15 mL 2 [place] 00 (two) Medical times Branch daily. chlorhexidi 2022-0 Yes [id number] 15mL [facility] ne 0.12 % 7-06 spit out ity of mouthwash 00:00: 15 mL 2 [place] 00 (two) Medical times Branch daily. chlorhexidi 2022-0 Yes [id number] 15mL [facility] ne 0.12 % 7-06 spit out ity of mouthwash 00:00: 15 mL 2 [place] 00 (two) Medical times Branch daily. chlorhexidi 2022-0 Yes [id number] 15mL [facility] ne 0.12 % 7-06 spit out ity of mouthwash 00:00: 15 mL 2 [place] 00 (two) Medical times Branch daily. chlorhexidi 2022-0 Yes [id number] 15mL [facility] ne 0.12 % 7-06 spit out ity of mouthwash 00:00: 15 mL 2 [place] 00 (two) Medical times Branch daily. chlorhexidi 2-0 Yes [id number] 15mL [facility] ne 0.12 % 7-06 spit out ity of mouthwash 00:00: 15 mL 2 [place] 00 (two) Medical times Branch daily. chlorhexidi 2021-0 Yes [id number] 15mL [facility] ne 0.12 % 7-06 spit out ity of mouthwash 00:00: 15 mL 2 [place] 00 (two) Medical times Branch daily. chlorhexidi 2021-0 Yes [id number] 15mL [facility] ne 0.12 % 7-06 spit out ity of mouthwash 00:00: 15 mL 2 [place] 00 (two) Medical times Branch daily. chlorhexidi 2021-0 Yes [id number] 15mL [facility] ne 0.12 % 7-06 spit out ity of mouthwash 00:00: 15 mL 2 [place] 00 (two) Medical times Branch daily. chlorhexidi 2021-0 Yes [id number] 15mL [facility] ne 0.12 % 7-06 spit out ity of mouthwash 00:00: 15 mL 2 [place] 00 (two) Medical times Branch daily. chlorhexidi 2021-0 Yes [id number] 15mL [facility] ne 0.12 % 7-06 spit out ity of mouthwash 00:00: 15 mL 2 [place] 00 (two) Medical times Branch daily. chlorhexidi 2-0 Yes [id number] 15mL [facility] ne 0.12 % 7-06 spit out ity of mouthwash 00:00: 15 mL 2 [place] 00 (two) Medical times Branch daily. chlorhexidi 2021-0 Yes [id number] 15mL [facility] ne 0.12 % 7-06 spit out ity of mouthwash 00:00: 15 mL 2 [place] 00 (two) Medical times Branch daily. chlorhexidi 2-0 Yes [id number] 15mL [facility] ne 0.12 % 7-06 spit out ity of mouthwash 00:00: 15 mL 2 [place] 00 (two) Medical times Branch daily. albuterol 2021-0 2022- No [id number] INHALE 2 [facility] 90 7-06 08-24 PUFFS BY ity of mcg/actuati 00:00: 00:00 MOUTH [place] on inhaler 00 :00 EVERY 6 Medica l HOURS Branch NEEDED FOR WHEEZING, SHORTNESS OF BREATH OR BRONCHOSPA SMS Insulin 2021-0 Yes [id number] USE [facility] [place], 02-02 DIRECTED ity of Disposable, 00:00: FOUR TIMES [place] (BD 00 DAILY. Dx Medical ULTRAFINE E11.9 Branch III MINI PEN) 31 gauge x 3/16" Ndle Insulin 2021-0 Yes [id number] USE [facility] [place], 02-02 DIRECTED ity of Disposable, 00:00: FOUR TIMES [place] (BD 00 DAILY. Dx Medical ULTRAFINE E11.9 Branch III MINI PEN) 31 gauge x 3/16" Ndle Insulin 2021-0 Yes [id number] USE [facility] [place], 02-02 DIRECTED ity of Disposable, 00:00: FOUR TIMES [place] (BD 00 DAILY. Dx Medical ULTRAFINE E11.9 Branch III MINI PEN) 31 gauge x 3/16" Ndle Insulin 2021-0 Yes [id number] USE [facility] [place], 02-02 DIRECTED ity of Disposable, 00:00: FOUR TIMES [place] (BD 00 DAILY. Dx Medical ULTRAFINE E11.9 Branch III MINI PEN) 31 gauge x 3/16" Ndle Insulin 2021-0 Yes [id number] USE [facility] [place], 02-02 DIRECTED ity of Disposable, 00:00: FOUR TIMES [place] (BD 00 DAILY. Dx Medical ULTRAFINE E11.9 Branch III MINI PEN) 31 gauge x 3/16" Ndle Insulin 2021-0 Yes [id number] USE [facility] [place], 02-02 DIRECTED ity of Disposable, 00:00: FOUR TIMES [place] (BD 00 DAILY. Dx Medical ULTRAFINE E11.9 Branch III MINI PEN) 31 gauge x 3/16" Ndle Insulin 2-0 Yes [id number] USE [facility] [place], 02-02 DIRECTED ity of Disposable, 00:00: FOUR TIMES [place] (BD 00 DAILY. Dx Medical ULTRAFINE E11.9 Branch III MINI PEN) 31 gauge x 3/16" Ndle Insulin 2022-0 Yes [id number] USE [facility] [place], 02-02 DIRECTED ity of Disposable, 00:00: FOUR TIMES [place] (BD 00 DAILY. Dx Medical ULTRAFINE E11.9 Branch III MINI PEN) 31 gauge x 3/16" Ndle Insulin 2022-0 Yes [id number] USE [facility] [place], 02-02 DIRECTED ity of Disposable, 00:00: FOUR TIMES [place] (BD 00 DAILY. Dx Medical ULTRAFINE E11.9 Branch III MINI PEN) 31 gauge x 3/16" Ndle Insulin 2022-0 Yes [id number] USE [facility] [place], 02-02 DIRECTED ity of Disposable, 00:00: FOUR TIMES [place] (BD 00 DAILY. Dx Medical ULTRAFINE E11.9 Branch III MINI PEN) 31 gauge x 3/16" Ndle Insulin 2022-0 Yes [id number] USE [facility] [place], 02-02 DIRECTED ity of Disposable, 00:00: FOUR TIMES [place] (BD 00 DAILY. Dx Medical ULTRAFINE E11.9 Branch III MINI PEN) 31 gauge x 3/16" Ndle Insulin 2022-0 Yes [id number] USE [facility] [place], 02-02 DIRECTED ity of Disposable, 00:00: FOUR TIMES [place] (BD 00 DAILY. Dx Medical ULTRAFINE E11.9 Branch III MINI PEN) 31 gauge x 3/16" Ndle Insulin 2022-0 Yes [id number] USE [facility] [place], 02-02 DIRECTED ity of Disposable, 00:00: FOUR TIMES [place] (BD 00 DAILY. Dx Medical ULTRAFINE E11.9 Branch III MINI PEN) 31 gauge x 3/16" Ndle Insulin 2022-0 Yes [id number] USE [facility] [place], 02-02 DIRECTED ity of Disposable, 00:00: FOUR TIMES [place] (BD 00 DAILY. Dx Medical ULTRAFINE E11.9 Branch III MINI PEN) 31 gauge x 3/16" Ndle Insulin 2022-0 Yes [id number] USE [facility] [place], 02-02 DIRECTED ity of Disposable, 00:00: FOUR TIMES [place] (BD 00 DAILY. Dx Medical ULTRAFINE E11.9 Branch III MINI PEN) 31 gauge x 3/16" Ndle Insulin 2022-0 Yes [id number] USE [facility] [place], 02-02 DIRECTED ity of Disposable, 00:00: FOUR TIMES [place] (BD 00 DAILY. Dx Medical ULTRAFINE E11.9 Branch III MINI PEN) 31 gauge x 3/16" Ndle Insulin 2022-0 Yes [id number] USE [facility] [place], 02-02 DIRECTED ity of Disposable, 00:00: FOUR TIMES [place] (BD 00 DAILY. Dx Medical ULTRAFINE E11.9 Branch III MINI PEN) 31 gauge x 3/16" Ndle Insulin 2022-0 Yes [id number] USE [facility] [place], 02-02 DIRECTED ity of Disposable, 00:00: FOUR TIMES [place] (BD 00 DAILY. Dx Medical ULTRAFINE E11.9 Branch III MINI PEN) 31 gauge x 3/16" Ndle Insulin 2022-0 Yes [id number] USE [facility] [place], 02-02 DIRECTED ity of Disposable, 00:00: FOUR TIMES [place] (BD 00 DAILY. Dx Medical ULTRAFINE E11.9 Branch III MINI PEN) 31 gauge x 3/16" Ndle Insulin 2022-0 Yes [id number] USE [facility] [place], 02-02 DIRECTED ity of Disposable, 00:00: FOUR TIMES [place] (BD 00 DAILY. Dx Medical ULTRAFINE E11.9 Branch III MINI PEN) 31 gauge x 3/16" Ndle Insulin 2022-0 Yes [id number] USE [facility] [place], 02-02 DIRECTED ity of Disposable, 00:00: FOUR TIMES [place] (BD 00 DAILY. Dx Medical ULTRAFINE E11.9 Branch III MINI PEN) 31 gauge x 3/16" Ndle Insulin 2022-0 Yes [id number] USE [facility] [place], 02-02 DIRECTED ity of Disposable, 00:00: FOUR TIMES [place] (BD 00 DAILY. Dx Medical ULTRAFINE E11.9 Branch III MINI PEN) 31 gauge x 3/16" Ndle Insulin 2022-0 Yes [id number] USE [facility] [place], 02-02 DIRECTED ity of Disposable, 00:00: FOUR TIMES [place] (BD 00 DAILY. Dx Medical ULTRAFINE E11.9 Branch III MINI PEN) 31 gauge x 3/16" Ndle Insulin 2022-0 Yes [id number] USE [facility] [place], 02-02 DIRECTED ity of Disposable, 00:00: FOUR TIMES [place] (BD 00 DAILY. Dx Medical ULTRAFINE E11.9 Branch III MINI PEN) 31 gauge x 3/16" Ndle Insulin 2022-0 Yes [id number] USE [facility] [place], 02-02 DIRECTED ity of Disposable, 00:00: FOUR TIMES [place] (BD 00 DAILY. [facility] ULTRAFINE E11.9 Branch III MINI PEN) 31 gauge x 3/16" Ndle Insulin 2022-0 Yes [id number] USE [facility] [place], 02-02 DIRECTED ity of Disposable, 00:00: FOUR TIMES [place] (BD 00 DAILY. [facility] ULTRAFINE E11.9 Branch III MINI PEN) 31 gauge x 3/16" Ndle Insulin 2022-0 Yes [id number] USE [facility] [place], 02-02 DIRECTED ity of Disposable, 00:00: FOUR TIMES [place] (BD 00 DAILY. [facility] ULTRAFINE E11.9 Branch III MINI PEN) 31 gauge x 3/16" Ndle Insulin 2022-0 Yes [id number] USE [facility] [place], 02-02 DIRECTED ity of Disposable, 00:00: FOUR TIMES [place] (BD 00 DAILY. [facility] ULTRAFINE E11.9 Branch III MINI PEN) 31 gauge x 3/16" Ndle Insulin 2022-0 Yes [id number] USE [facility] [place], 02-02 DIRECTED ity of Disposable, 00:00: FOUR TIMES [place] (BD 00 DAILY. [facility] ULTRAFINE E11.9 Branch III MINI PEN) 31 gauge x 3/16" Ndle Insulin 2022-0 Yes [id number] USE [facility] [place], 02-02 DIRECTED ity of Disposable, 00:00: FOUR TIMES [place] (BD 00 DAILY. [facility] ULTRAFINE E11.9 Branch III MINI PEN) 31 gauge x 3/16" Ndle Insulin 2022-0 Yes [id number] USE [facility] [place], 02-02 DIRECTED ity of Disposable, 00:00: FOUR TIMES [place] (BD 00 DAILY. [facility] ULTRAFINE E11.9 Branch III MINI PEN) 31 gauge x 3/16" Ndle Insulin 2022-0 Yes [id number] USE [facility] [place], 02-02 DIRECTED ity of Disposable, 00:00: FOUR TIMES [place] (BD 00 DAILY. [facility] ULTRAFINE E11.9 Branch III MINI PEN) 31 gauge x 3/16" Ndle Insulin 2022-0 Yes [id number] USE [facility] [place], 02-02 DIRECTED ity of Disposable, 00:00: FOUR TIMES [place] (BD 00 DAILY. [facility] ULTRAFINE E11.9 Branch III MINI PEN) 31 gauge x 3/16" Ndle Insulin 2022-0 Yes [id number] USE [facility] [place], 02-02 DIRECTED ity of Disposable, 00:00: FOUR TIMES [place] (BD 00 DAILY. [facility] ULTRAFINE E11.9 Branch III MINI PEN) 31 gauge x 3/16" Ndle Insulin 2022-0 Yes [id number] USE [facility] [place], 02-02 DIRECTED ity of Disposable, 00:00: FOUR TIMES [place] (BD 00 DAILY. [facility] ULTRAFINE E11.9 Branch III MINI PEN) 31 gauge x 3/16" Ndle Insulin 2022-0 Yes [id number] USE [facility] [place], 02-02 DIRECTED ity of Disposable, 00:00: FOUR TIMES [place] (BD 00 DAILY. [facility] ULTRAFINE E11.9 Branch III MINI PEN) 31 gauge x 3/16" Ndle Insulin 2022-0 Yes [id number] USE [facility] [place], 02-02 DIRECTED ity of Disposable, 00:00: FOUR TIMES [place] (BD 00 DAILY. [facility] ULTRAFINE E11.9 Branch III MINI PEN) 31 gauge x 3/16" Ndle Insulin 2022-0 Yes [id number] USE [facility] [place], 02-02 DIRECTED ity of Disposable, 00:00: FOUR TIMES [place] (BD 00 DAILY. [facility] ULTRAFINE E11.9 Branch III MINI PEN) 31 gauge x 3/16" Ndle Insulin 2022-0 Yes [id number] USE [facility] [place], 02-02 DIRECTED ity of Disposable, 00:00: FOUR TIMES [place] (BD 00 DAILY. [facility] ULTRAFINE E11.9 Branch III MINI PEN) 31 gauge x 3/16" Ndle Insulin 2022-0 Yes [id number] USE [facility] [place], 02-02 DIRECTED ity of Disposable, 00:00: FOUR TIMES [place] (BD 00 DAILY. [facility] ULTRAFINE E11.9 Branch III MINI PEN) 31 gauge x 3/16" Ndle Insulin 2022-0 Yes [id number] USE [facility] [place], 02-02 DIRECTED ity of Disposable, 00:00: FOUR TIMES [place] (BD 00 DAILY. [facility] ULTRAFINE E11.9 Branch III MINI PEN) 31 gauge x 3/16" Ndle Insulin 2022-0 Yes [id number] USE [facility] [place], 02-02 DIRECTED ity of Disposable, 00:00: FOUR TIMES [place] (BD 00 DAILY. [facility] ULTRAFINE E11.9 Branch III MINI PEN) 31 gauge x 3/16" Ndle Insulin 2022-0 Yes [id number] USE [facility] [place], 02-02 DIRECTED ity of Disposable, 00:00: FOUR TIMES [place] (BD 00 DAILY. [facility] ULTRAFINE E11.9 Branch III MINI PEN) 31 gauge x 3/16" Ndle Insulin 2022-0 Yes [id number] USE [facility] [place], 02-02 DIRECTED ity of Disposable, 00:00: FOUR TIMES [place] (BD 00 DAILY. [facility] ULTRAFINE E11.9 Branch III MINI PEN) 31 gauge x 3/16" Ndle Insulin 2022-0 Yes [id number] USE [facility] [place], 02-02 DIRECTED ity of Disposable, 00:00: FOUR TIMES [place] (BD 00 DAILY. [facility] ULTRAFINE E11.9 Branch III MINI PEN) 31 gauge x 3/16" Ndle Insulin 2022-0 Yes [id number] USE [facility] [place], 02-02 DIRECTED ity of Disposable, 00:00: FOUR TIMES [place] (BD 00 DAILY. [facility] ULTRAFINE E11.9 Branch III MINI PEN) 31 gauge x 3/16" Ndle Insulin 2022-0 Yes [id number] USE [facility] [place], 02-02 DIRECTED ity of Disposable, 00:00: FOUR TIMES [place] (BD 00 DAILY. [facility] ULTRAFINE E11.9 Branch III MINI PEN) 31 gauge x 3/16" Ndle Insulin 2022-0 Yes [id number] USE [facility] [place], 02-02 DIRECTED ity of Disposable, 00:00: FOUR TIMES [place] (BD 00 DAILY. [facility] ULTRAFINE E11.9 Branch III MINI PEN) 31 gauge x 3/16" Ndle Insulin 2022-0 Yes [id number] USE [facility] [place], 02-02 DIRECTED ity of Disposable, 00:00: FOUR TIMES [place] (BD 00 DAILY. [facility] ULTRAFINE E11.9 Branch III MINI PEN) 31 gauge x 3/16" Ndle Insulin 2022-0 Yes [id number] USE [facility] [place], 02-02 DIRECTED ity of Disposable, 00:00: FOUR TIMES [place] (BD 00 DAILY. [facility] ULTRAFINE E11.9 Branch III MINI PEN) 31 gauge x 3/16" Ndle Insulin 2022-0 Yes [id number] USE [facility] [place], 02-02 DIRECTED ity of Disposable, 00:00: FOUR TIMES [place] (BD 00 DAILY. [facility] ULTRAFINE E11.9 Branch III MINI PEN) 31 gauge x 3/16" Ndle Insulin 2022-0 Yes [id number] USE [facility] [place], 7 DIRECTED ity of Disposable, 00:00: FOUR TIMES [place] (BD 00 DAILY. [facility] ULTRAFINE E11.9 Branch III MINI PEN) 31 gauge x 3/16" Ndle Insulin 2022-0 Yes [id number] USE [facility] [place], 02-02 DIRECTED ity of Disposable, 00:00: FOUR TIMES [place] (BD 00 DAILY. [facility] ULTRAFINE E11.9 Branch III MINI PEN) 31 gauge x 3/16" Ndle Insulin 2022-0 Yes [id number] USE [facility] [place], 02-02 DIRECTED ity of Disposable, 00:00: FOUR TIMES [place] (BD 00 DAILY. [facility] ULTRAFINE E11.9 Branch III MINI PEN) 31 gauge x 3/16" Ndle Insulin 2022-0 Yes [id number] USE [facility] [place], 02-02 DIRECTED ity of Disposable, 00:00: FOUR TIMES [place] (BD 00 DAILY. [facility] ULTRAFINE E11.9 Branch III MINI PEN) 31 gauge x 3/16" Ndle Insulin 2022-0 Yes [id number] USE [facility] [place], 02-02 DIRECTED ity of Disposable, 00:00: FOUR TIMES [place] (BD 00 DAILY. [facility] ULTRAFINE E11.9 Branch III MINI PEN) 31 gauge x 3/16" Ndle Insulin 2022-0 Yes [id number] USE [facility] [place], 02-02 DIRECTED ity of Disposable, 00:00: FOUR TIMES [place] (BD 00 DAILY. [facility] ULTRAFINE E11.9 Branch III MINI PEN) 31 gauge x 3/16" Ndle Insulin 2022-0 Yes [id number] USE [facility] [place], 7 DIRECTED ity of Disposable, 00:00: FOUR TIMES [place] (BD 00 DAILY. [facility] ULTRAFINE E11.9 Branch III MINI PEN) 31 gauge x 3/16" Ndle Insulin 2022-0 Yes [id number] USE [facility] [place], 02-02 DIRECTED ity of Disposable, 00:00: FOUR TIMES [place] (BD 00 DAILY. [facility] ULTRAFINE E11.9 Branch III MINI PEN) 31 gauge x 3/16" Ndle Insulin 2022-0 Yes [id number] USE [facility] [place], 02-02 DIRECTED ity of Disposable, 00:00: FOUR TIMES [place] (BD 00 DAILY. [facility] ULTRAFINE E11.9 Branch III MINI PEN) 31 gauge x 3/16" Ndle Insulin 2022-0 Yes [id number] USE [facility] [place], 7 DIRECTED ity of Disposable, 00:00: FOUR TIMES [place] (BD 00 DAILY. [facility] ULTRAFINE E11.9 Branch III MINI PEN) 31 gauge x 3/16" Ndle Insulin 2022-0 Yes [id number] USE [facility] [place], 7 DIRECTED ity of Disposable, 00:00: FOUR TIMES [place] (BD 00 DAILY. [facility] ULTRAFINE E11.9 Branch III MINI PEN) 31 gauge x 3/16" Ndle Insulin 2022-0 Yes [id number] USE [facility] [place], 7 DIRECTED ity of Disposable, 00:00: FOUR TIMES [place] (BD 00 DAILY. [facility] ULTRAFINE E11.9 Branch III MINI PEN) 31 gauge x 3/16" Ndle Insulin 2022-0 Yes [id number] USE [facility] [place], 7 DIRECTED ity of Disposable, 00:00: FOUR TIMES [place] (BD 00 DAILY. [facility] ULTRAFINE E11.9 Branch III MINI PEN) 31 gauge x 3/16" Ndle Insulin 2022-0 Yes [id number] USE [facility] [place], 7 DIRECTED ity of Disposable, 00:00: FOUR TIMES [place] (BD 00 DAILY. [facility] ULTRAFINE E11.9 Branch III MINI PEN) 31 gauge x 3/16" Ndle Insulin 2022-0 Yes [id number] USE [facility] [place], 7 DIRECTED ity of Disposable, 00:00: FOUR TIMES [place] (BD 00 DAILY. [facility] ULTRAFINE E11.9 Branch III MINI PEN) 31 gauge x 3/16" Ndle Insulin 2022-0 Yes [id number] USE [facility] [place], 7 DIRECTED ity of Disposable, 00:00: FOUR TIMES [place] (BD 00 DAILY. [facility] ULTRAFINE E11.9 Branch III MINI PEN) 31 gauge x 3/16" Ndle Insulin 2022-0 Yes [id number] USE [facility] [place], 7 DIRECTED ity of Disposable, 00:00: FOUR TIMES [place] (BD 00 DAILY. [facility] ULTRAFINE E11.9 Branch III MINI PEN) 31 gauge x 3/16" Ndle Insulin 2022-0 Yes [id number] USE [facility] [place], 02-02 DIRECTED ity of Disposable, 00:00: FOUR TIMES [place] (BD 00 DAILY. [facility] ULTRAFINE E11.9 Branch III MINI PEN) 31 gauge x 3/16" Ndle Insulin Yes [id number] USE [facility] [place], 02-02 DIRECTED ity of Disposable, 00:00: FOUR TIMES [place] (BD 00 DAILY. [facility] ULTRAFINE E11.9 Branch III MINI PEN) 31 gauge x 3/16" Ndle Insulin Yes [id number] USE [facility] [place], 02-02 DIRECTED ity of Disposable, 00:00: FOUR TIMES [place] (BD 00 DAILY. [facility] ULTRAFINE E11.9 Branch III MINI PEN) 31 gauge x 3/16" Ndle Insulin Yes [id number] USE [facility] [place], 02-02 DIRECTED ity of Disposable, 00:00: FOUR TIMES [place] (BD 00 DAILY. [facility] ULTRAFINE E11.9 Branch III MINI PEN) 31 gauge x 3/16" Ndle TRESIBA Yes [id number] ADMINISTER [facility] FLEXTOUCH 6-26 62 UNITS ity of U-200 200 00:00: UNDER THE [place] unit/mL (3 00 SKIN THREE Med ical mL) InPn TIMES Branch DAILY TRESIBA Yes [id number] ADMINISTER [facility] FLEXTOUCH 6-26 62 UNITS ity of U-200 200 00:00: UNDER THE [place] [facility] unit/mL (3 00 SKIN THREE Med ical mL) InPn TIMES Branch DAILY TRESIBA Yes [id number] ADMINISTER [facility] FLEXTOUCH 6-26 62 UNITS ity of U-200 200 00:00: UNDER THE [place] [facility] unit/mL (3 00 SKIN THREE Med ical mL) InPn TIMES Branch DAILY TRESIBA Yes [id number] ADMINISTER [facility] FLEXTOUCH 6-26 62 UNITS ity of U-200 200 00:00: UNDER THE [place] [facility] unit/mL (3 00 SKIN THREE Med ical mL) InPn TIMES Branch DAILY TRESIBA Yes [id number] ADMINISTER [facility] FLEXTOUCH 6-26 62 UNITS ity of U-200 200 00:00: UNDER THE [place] [facility] unit/mL (3 00 SKIN THREE Med ical mL) InPn TIMES Branch DAILY TRESIBA Yes [id number] ADMINISTER [facility] FLEXTOUCH 6-26 62 UNITS ity of U-200 200 00:00: UNDER THE [place] [facility] unit/mL (3 00 SKIN THREE Med ical mL) InPn TIMES Branch DAILY TRESIBA Yes [id number] ADMINISTER [facility] FLEXTOUCH 6-26 62 UNITS ity of U-200 200 00:00: UNDER THE [place] [facility] unit/mL (3 00 SKIN THREE Med ical mL) InPn TIMES Branch DAILY TRESIBA Yes [id number] ADMINISTER [facility] FLEXTOUCH 6-26 62 UNITS ity of U-200 200 00:00: UNDER THE [place] [facility] unit/mL (3 00 SKIN THREE Med ical mL) InPn TIMES Branch DAILY TRESIBA Yes [id number] ADMINISTER [facility] FLEXTOUCH 6-26 62 UNITS ity of U-200 200 00:00: UNDER THE [place] [facility] unit/mL (3 00 SKIN THREE Med ical mL) InPn TIMES Branch DAILY TRESIBA Yes [id number] ADMINISTER [facility] FLEXTOUCH 6-26 62 UNITS ity of U-200 200 00:00: UNDER THE [place] [facility] unit/mL (3 00 SKIN THREE Med ical mL) InPn TIMES Branch DAILY TRESIBA Yes [id number] ADMINISTER [facility] FLEXTOUCH 6-26 62 UNITS ity of U-200 200 00:00: UNDER THE [place] [facility] unit/mL (3 00 SKIN THREE Med ical mL) InPn TIMES Branch DAILY TRESIBA Yes [id number] ADMINISTER [facility] FLEXTOUCH 6-26 62 UNITS ity of U-200 200 00:00: UNDER THE [place] [facility] unit/mL (3 00 SKIN THREE Med ical mL) InPn TIMES Branch DAILY TRESIBA Yes [id number] ADMINISTER [facility] FLEXTOUCH 6-26 62 UNITS ity of U-200 200 00:00: UNDER THE [place] [facility] unit/mL (3 00 SKIN THREE Med ical mL) InPn TIMES Branch DAILY TRESIBA Yes [id number] ADMINISTER [facility] FLEXTOUCH 6-26 62 UNITS ity of U-200 200 00:00: UNDER THE [place] [facility] unit/mL (3 00 SKIN THREE Med ical mL) InPn TIMES Branch DAILY TRESIBA Yes [id number] ADMINISTER [facility] FLEXTOUCH 6-26 62 UNITS ity of U-200 200 00:00: UNDER THE [place] [facility] unit/mL (3 00 SKIN THREE Med ical mL) InPn TIMES Branch DAILY TRESIBA Yes [id number] ADMINISTER [facility] FLEXTOUCH 6-26 62 UNITS ity of U-200 200 00:00: UNDER THE [place] [facility] unit/mL (3 00 SKIN THREE Med ical mL) InPn TIMES Branch DAILY TRESIBA Yes [id number] ADMINISTER [facility] FLEXTOUCH 6-26 62 UNITS ity of U-200 200 00:00: UNDER THE [place] as unit/mL (3 00 SKIN THREE Med ical mL) InPn TIMES Branch DAILY TRESIBA Yes [id number] ADMINISTER [facility] FLEXTOUCH 6-26 62 UNITS ity of U-200 200 00:00: UNDER THE [place] as unit/mL (3 00 SKIN THREE Med ical mL) InPn TIMES Branch DAILY TRESIBA Yes [id number] ADMINISTER [facility] FLEXTOUCH 6-26 62 UNITS ity of U-200 200 00:00: UNDER THE [place] [facility] unit/mL (3 00 SKIN THREE Med ical mL) InPn TIMES Branch DAILY TRESIBA Yes [id number] ADMINISTER [facility] FLEXTOUCH 6-26 62 UNITS ity of U-200 200 00:00: UNDER THE [place] [facility] unit/mL (3 00 SKIN THREE Med ical mL) InPn TIMES Branch DAILY TRESIBA Yes [id number] ADMINISTER [facility] FLEXTOUCH 6-26 62 UNITS ity of U-200 200 00:00: UNDER THE [place] [facility] unit/mL (3 00 SKIN THREE Med ical mL) InPn TIMES Branch DAILY TRESIBA Yes [id number] ADMINISTER [facility] FLEXTOUCH 6-26 62 UNITS ity of U-200 200 00:00: UNDER THE [place] [facility] unit/mL (3 00 SKIN THREE Med ical mL) InPn TIMES Branch DAILY TRESIBA Yes [id number] ADMINISTER [facility] FLEXTOUCH 6-26 62 UNITS ity of U-200 200 00:00: UNDER THE [place] [facility] unit/mL (3 00 SKIN THREE Med ical mL) InPn TIMES Branch DAILY TRESIBA Yes [id number] ADMINISTER [facility] FLEXTOUCH 6-26 62 UNITS ity of U-200 200 00:00: UNDER THE [place] [facility] unit/mL (3 00 SKIN THREE Med ical mL) InPn TIMES Branch DAILY TRESIBA Yes [id number] ADMINISTER [facility] FLEXTOUCH 6-26 62 UNITS ity of U-200 200 00:00: UNDER THE [place] [facility] unit/mL (3 00 SKIN THREE Med ical mL) InPn TIMES Branch DAILY TRESIBA Yes [id number] ADMINISTER [facility] FLEXTOUCH 6-26 62 UNITS ity of U-200 200 00:00: UNDER THE [place] [facility] unit/mL (3 00 SKIN THREE Med ical mL) InPn TIMES Branch DAILY TRESIBA Yes [id number] ADMINISTER [facility] FLEXTOUCH 6-26 62 UNITS ity of U-200 200 00:00: UNDER THE [place] [facility] unit/mL (3 00 SKIN THREE Med ical mL) InPn TIMES Branch DAILY TRESIBA Yes [id number] ADMINISTER [facility] FLEXTOUCH 6-26 62 UNITS ity of U-200 200 00:00: UNDER THE [place] [facility] unit/mL (3 00 SKIN THREE Med ical mL) InPn TIMES Branch DAILY TRESIBA Yes [id number] ADMINISTER [facility] FLEXTOUCH 6-26 62 UNITS ity of U-200 200 00:00: UNDER THE [place] [facility] unit/mL (3 00 SKIN THREE Med ical mL) InPn TIMES Branch DAILY TRESIBA Yes [id number] ADMINISTER [facility] FLEXTOUCH 6-26 62 UNITS ity of U-200 200 00:00: UNDER THE [place] [facility] unit/mL (3 00 SKIN THREE Med ical mL) InPn TIMES Branch DAILY TRESIBA Yes [id number] ADMINISTER [facility] FLEXTOUCH 6-26 62 UNITS ity of U-200 200 00:00: UNDER THE [place] [facility] unit/mL (3 00 SKIN THREE Med ical mL) InPn TIMES Branch DAILY TRESIBA Yes [id number] ADMINISTER [facility] FLEXTOUCH 6-26 62 UNITS ity of U-200 200 00:00: UNDER THE [place] [facility] unit/mL (3 00 SKIN THREE Med ical mL) InPn TIMES Branch DAILY TRESIBA Yes [id number] ADMINISTER [facility] FLEXTOUCH 6-26 62 UNITS ity of U-200 200 00:00: UNDER THE [place] as unit/mL (3 00 SKIN THREE Med ical mL) InPn TIMES Branch DAILY TRESIBA 0 2- No [id number] ADMINISTER [facility] FLEXTOUCH 6-26 11-03 62 UNITS ity o f U-200 200 00:00: 00:00 UNDER THE [place] unit/mL (3 00 :00 SKIN THREE Med ical mL) InPn TIMES Branch DAILY VERAPAMIL 0 Yes [id number] 240mg TAKE 1 U nivers 240 mg 24 5-31 CAPSULE BY ity of hr capsule 00:00: MOUTH DAILY Medical Branch VERAPAMIL 2021-0 Yes [id number] 240mg TAKE 1 U nivers 240 mg 24 5-31 CAPSULE BY ity of hr capsule 00:00: MOUTH DAILY Medical Branch VERAPAMIL 2021-0 Yes [id number] 240mg TAKE 1 U nivers 240 mg 24 5-31 CAPSULE BY ity of hr capsule 00:00: MOUTH DAILY Medical Branch VERAPAMIL 2021-0 2021- No [id number] 240mg TAKE 1 [facility] 240 mg 24 5-31 08-29 CAPSULE BY ity of hr capsule 00:00: 00:00 MOUTH [place] 00 :00 DAILY Medical Branch mupirocin 2 2021-0 Yes [id number] Apply to Univers % ointment 5-25 area(s) 3 ity of 00:00: (three) [place] times Medical daily. Branch mupirocin 2 2021-0 Yes [id number] Apply to Univers % ointment 5-25 area(s) 3 ity of 00:00: (three) [place] times Medical daily. Branch mupirocin 2 2021-0 Yes [id number] Apply to Univers % ointment 5-25 area(s) 3 ity of 00:00: (three) [place] times Medical daily. Branch mupirocin 2 2021-0 Yes [id number] Apply to [facility] % ointment 5-25 area(s) 3 ity of 00:00: (three) [place] times Medical daily. Branch mupirocin 2 2021-0 Yes [id number] Apply to Univers % ointment 5-25 area(s) 3 ity of 00:00: (three) [place] 00 times Medical daily. Branch mupirocin 2 2-0 Yes [id number] Apply to Univers % ointment 5-25 area(s) 3 ity of 00:00: (three) [place] 00 times Medical daily. Branch mupirocin 2 2021-0 Yes [id number] Apply to Univers % ointment 5-25 area(s) 3 ity of 00:00: (three) [place] 00 times Medical daily. Branch mupirocin 2 2021-0 Yes [id number] Apply to [facility] % ointment 5-25 area(s) 3 ity of 00:00: (three) [place] 00 times Medical daily. Branch mupirocin 2 2-0 Yes [id number] Apply to [facility] % ointment 5-25 area(s) 3 ity of 00:00: (three) [place] 00 times Medical daily. Branch mupirocin 2 2021-0 Yes [id number] Apply to Univers % ointment 5-25 area(s) 3 ity of 00:00: (three) [place] 00 times Medical daily. Branch mupirocin 2 2021-0 Yes [id number] Apply to [facility] % ointment 5-25 area(s) 3 ity of 00:00: (three) [place] 00 times Medical daily. Branch mupirocin 2 2021-0 Yes [id number] Apply to [facility] % ointment 5-25 area(s) 3 ity of 00:00: (three) [place] 00 times Medical daily. Branch mupirocin 2 2021-0 Yes [id number] Apply to [facility] % ointment 5-25 area(s) 3 ity of 00:00: (three) [place] 00 times Medical daily. Branch mupirocin 2 2-0 Yes [id number] Apply to [facility] % ointment 5-25 area(s) 3 ity of 00:00: (three) [place] 00 times Medical daily. Branch mupirocin 2 2-0 Yes [id number] Apply to [facility] % ointment 5-25 area(s) 3 ity of 00:00: (three) [place] 00 times Medical daily. Branch mupirocin 2 2-0 Yes [id number] Apply to [facility] % ointment 5-25 area(s) 3 ity of 00:00: (three) [place] 00 times Medical daily. Branch mupirocin 2 2022-0 Yes [id number] Apply to [facility] % ointment 5-25 area(s) 3 ity of 00:00: (three) [place] 00 times Medical daily. Branch mupirocin 2 2-0 Yes [id number] Apply to [facility] % ointment 5-25 area(s) 3 ity of 00:00: (three) [place] 00 times Medical daily. Branch mupirocin 2 2-0 Yes [id number] Apply to [facility] % ointment 5-25 area(s) 3 ity of 00:00: (three) [place] 00 times Medical daily. Branch mupirocin 2 2-0 Yes [id number] Apply to [facility] % ointment 5-25 area(s) 3 ity of 00:00: (three) [place] 00 times Medical daily. Branch mupirocin 2 2-0 Yes [id number] Apply to [facility] % ointment 5-25 area(s) 3 ity of 00:00: (three) [place] 00 times Medical daily. Branch mupirocin 2 2-0 Yes [id number] Apply to [facility] % ointment 5-25 area(s) 3 ity of 00:00: (three) [place] 00 times Medical daily. Branch mupirocin 2 2-0 Yes [id number] Apply to [facility] % ointment 5-25 area(s) 3 ity of 00:00: (three) [place] 00 times Medical daily. Branch mupirocin 2 2-0 Yes [id number] Apply to [facility] % ointment 5-25 area(s) 3 ity of 00:00: (three) [place] 00 times Medical daily. Branch mupirocin 2 2-0 Yes [id number] Apply to [facility] % ointment 5-25 area(s) 3 ity of 00:00: (three) [place] 00 times Medical daily. Branch mupirocin 2 2022-0 Yes [id number] Apply to [facility] % ointment 5-25 area(s) 3 ity of 00:00: (three) [place] 00 times Medical daily. Branch mupirocin 2 2-0 Yes [id number] Apply to [facility] % ointment 5-25 area(s) 3 ity of 00:00: (three) [place] 00 times Medical daily. Branch mupirocin 2 2-0 Yes [id number] Apply to [facility] % ointment 5-25 area(s) 3 ity of 00:00: (three) [place] 00 times Medical daily. Branch mupirocin 2 2-0 Yes [id number] Apply to [facility] % ointment 5-25 area(s) 3 ity of 00:00: (three) [place] 00 times Medical daily. Branch mupirocin 2 2-0 Yes [id number] Apply to [facility] % ointment 5-25 area(s) 3 ity of 00:00: (three) [place] 00 times Medical daily. Branch mupirocin 2 2-0 Yes [id number] Apply to [facility] % ointment 5-25 area(s) 3 ity of 00:00: (three) [place] 00 times Medical daily. Branch mupirocin 2 2-0 Yes [id number] Apply to [facility] % ointment 5-25 area(s) 3 ity of 00:00: (three) [place] 00 times Medical daily. Branch mupirocin 2 2-0 Yes [id number] Apply to [facility] % ointment 5-25 area(s) 3 ity of 00:00: (three) [place] 00 times Medical daily. Branch mupirocin 2 2-0 Yes [id number] Apply to [facility] % ointment 5-25 area(s) 3 ity of 00:00: (three) [place] 00 times Medical daily. Branch mupirocin 2 2-0 Yes [id number] Apply to [facility] % ointment 5-25 area(s) 3 ity of 00:00: (three) [place] 00 times Medical daily. Branch mupirocin 2 2-0 Yes [id number] Apply to [facility] % ointment 5-25 area(s) 3 ity of 00:00: (three) [place] 00 times Medical daily. Branch mupirocin 2 2022-0 Yes [id number] Apply to [facility] % ointment 5-25 area(s) 3 ity of 00:00: (three) [place] 00 times Medical daily. Branch mupirocin 2 2-0 Yes [id number] Apply to [facility] % ointment 5-25 area(s) 3 ity of 00:00: (three) [place] 00 times Medical daily. Branch mupirocin 2 2021-0 Yes [id number] Apply to [facility] % ointment 5-25 area(s) 3 ity of 00:00: (three) [place] 00 times Medical daily. Branch mupirocin 2 2021-0 Yes [id number] Apply to [facility] % ointment 5-25 area(s) 3 ity of 00:00: (three) [place] 00 times Medical daily. Branch mupirocin 2 2021-0 Yes [id number] Apply to [facility] % ointment 5-25 area(s) 3 ity of 00:00: (three) [place] 00 times Medical daily. Branch mupirocin 2 2021-0 Yes [id number] Apply to [facility] % ointment 5-25 area(s) 3 ity of 00:00: (three) [place] 00 times Medical daily. Branch mupirocin 2 2021-0 Yes [id number] Apply to [facility] % ointment 5-25 area(s) 3 ity of 00:00: (three) [place] 00 times Medical daily. Branch mupirocin 2 2021-0 Yes [id number] Apply to [facility] % ointment 5-25 area(s) 3 ity of 00:00: (three) [place] 00 times Medical daily. Branch mupirocin 2 2021-0 Yes [id number] Apply to [facility] % ointment 5-25 area(s) 3 ity of 00:00: (three) [place] 00 times Medical daily. Branch mupirocin 2 2021-0 Yes [id number] Apply to [facility] % ointment 5-25 area(s) 3 ity of 00:00: (three) [place] 00 times Medical daily. Branch mupirocin 2 2021-0 Yes [id number] Apply to [facility] % ointment 5-25 area(s) 3 ity of 00:00: (three) [place] 00 times Medical daily. Branch mupirocin 2 2-0 Yes [id number] Apply to [facility] % ointment 5-25 area(s) 3 ity of 00:00: (three) [place] 00 times Medical daily. Branch mupirocin 2 2-0 Yes [id number] Apply to [facility] % ointment 5-25 area(s) 3 ity of 00:00: (three) [place] 00 times Medical daily. Branch mupirocin 2 2021-0 Yes [id number] Apply to [facility] % ointment 5-25 area(s) 3 ity of 00:00: (three) [place] 00 times Medical daily. Branch mupirocin 2 2021-0 2022- No [id number] Apply to [facility] % ointment 5-25 11-28 area(s) 3 ity of 00:00: 00:00 (three) [place] 00 :00 times Medical daily. Branch mupirocin 2 2021-0 2021- No [id number] Apply to [facility] % ointment 5-25 11-28 area(s) 3 ity of 00:00: 00:00 (three) [place] 00 :00 times Medical daily. Branch aspirin 325 0 Yes 325mg Take [...] [place] 40 daily. Medical Branch aspirin 325 2022-0 Yes 325mg Take 325 U nivers mg [...] [place] 40 daily. Medical Branch aspirin 325 Yes 325mg Take 325 U nivers mg tablet 5-10 mg by ity of 09:43: mouth [place] 40 daily. Medical Branch ketoconazol Yes [id number] Apply to [facility] e 2 % 5-10 area(s) [facility] [place] 00:[place] 00 [place] needed [facility] for [facility] Itching. ketoconazol Yes [id number] Apply to Univers e 2 % 5-10 area(s) [facility] [place] shamp[place] 00:[place] 00 [place] needed [facility] for [facility] Itching. ketoconazol Yes [id number] Apply to [facility] e 2 % 5-10 area(s) [facility]y of shampoo 00:00: [place] 00 as needed [facility] for [facility] Itching. ketoconazol Yes [id number] Apply to Univers e 2 % 5-10 area(s) ity of shampoo 00:00: [place] 00 [place] needed [facility] for [facility] Itching. ketoconazol Yes [id number] Apply to Univers e 2 % 5-10 area(s) [facility]y of shampoo 00:00: [place] 00 as needed [facility] for [facility] Itching. ketoconazol Yes [id number] Apply to Univers e 2 % 5-10 area(s) ity of shampoo 00:00: [place] daily [place] 00 as needed [facility] for [facility] Itching. ketoconazol 0 Yes [id number] Apply to Univers e 2 % 5-10 area(s) ity of shampoo 00:00: once daily [place] 00 as needed [facility] for [facility] Itching. ketoconazol 0 Yes [id number] Apply to Univers e 2 % 5-10 area(s) ity of shampoo 00:00[place] 00 as needed [facility] for Branch Itching. ketoconazol 0 Yes [id number] [facility] area[facility]:[place] needed [facility] for [facility] Itching. ketoconazol 0 Yes [id number] Apply to [facility] 2 % 5-10 area(s) [facility]y of shampoo 00:00: [place] 00 [place] needed [facility] for [facility] Itching. ketoconazol Yes [id number] Apply to [facility] 2 % 5-10 area(s) [facility]y of shampoo 00:00: once daily [place] 00 as needed Medical for [facility] Itching. ketoconazol Yes [id number] Apply to [facility] 2 % 5-10 area(s) [facility]y of shampoo 00:00: once daily [place] 00 as needed Medical for [facility] Itching. ketoconazol 0 Yes [id number] Apply to [facility] e 2 % 5-10 area(s) [facility]y of shampoo 00:00: once daily [place] 00 as needed Medical for [facility] Itching. ketoconazol 0 Yes [id number] Apply to [facility] e 2 % 5-10 area(s) [facility]y of shampoo 00:00: once daily [place] 00 as needed Medical for Branch Itching. ketoconazol 0 Yes [id number] Apply to [facility] 2 % 5-10 area(s) ity of shampoo 00:00: once daily [place] 00 as needed Medical for Branch Itching. ketoconazol 0 Yes [id number] Apply to [facility] e 2 % 5-10 area(s) ity of shampoo 00:00: once daily [place] 00 as needed Medical for Branch Itching. ketoconazol 0 Yes [id number] Apply to [facility] 2 % 5-10 area(s) ity of shampoo 00:00: once daily [place] 00 as needed Medical for [facility] Itching. ketoconazol 0 Yes [id number] Apply to [facility] e 2 % 5-10 area(s) ity of shampoo 00:00: once daily [place] 00 as needed Medical for Branch Itching. ketoconazol 0 Yes [id number] Apply to [facility] e 2 % 5-10 area(s) ity of shampoo 00:00: once daily [place] 00 as needed Medical for Branch Itching. ketoconazol 0 Yes [id number] Apply to [facility] 2 % 5-10 area(s) ity of shampoo 00:00: once daily [place] 00 as needed Medical for Branch Itching. ketoconazol 0 Yes [id number] Apply to [facility] 2 % 5-10 area(s) ity of shampoo 00:00: once daily [place] 00 as needed Medical for Branch Itching. ketoconazol 0 Yes [id number] Apply to [facility] 2 % 5-10 area(s) ity of shampoo 00:00: once daily [place] 00 as needed Medical for Branch Itching. ketoconazol 0 Yes [id number] Apply to [facility] 2 % 5-10 area(s) ity of shampoo 00:00: once daily [place] 00 as needed Medical for Branch Itching. ketoconazol 0 Yes [id number] Apply to [facility] 2 % 5-10 area(s) ity of shampoo 00:00: once daily [place] 00 as needed Medical for Branch Itching. ketoconazol 0 Yes [id number] Apply to [facility] 2 % 5-10 area(s) ity of shampoo 00:00: once daily [place] 00 as needed Medical for Branch Itching. ketoconazol 2021-0 Yes [id number] Apply to [facility] 2 % 5-10 area(s) ity of shampoo 00:00: once daily [place] 00 as needed Medical for [facility] Itching. ketoconazol 0 Yes [id number] Apply to [facility] 2 % 5-10 area(s) ity of shampoo 00:00: once daily [place] 00 as needed Medical for Branch Itching. ketoconazol 0 Yes [id number] Apply to [facility] 2 % 5-10 area(s) ity of shampoo 00:00: once daily [place] 00 as needed Medical for Branch Itching. ketoconazol 0 Yes [id number] Apply to [facility] 2 % 5-10 area(s) ity of shampoo 00:00: once daily [place] 00 as needed Medical for Branch Itching. ketoconazol 0 Yes [id number] Apply to [facility] 2 % 5-10 area(s) ity of shampoo 00:00: once daily [place] 00 as needed Medical for Branch Itching. ketoconazol 0 Yes [id number] Apply to [facility] e 2 % 5-10 area(s) ity of shampoo 00:00: once daily [place] 00 as needed Medical for Branch Itching. ketoconazol 0 Yes [id number] Apply to [facility] 2 % 5-10 area(s) ity of shampoo 00:00: once daily [place] 00 as needed Medical for Branch Itching. ketoconazol 0 Yes [id number] Apply to [facility] 2 % 5-10 area(s) ity of shampoo 00:00: once daily [place] 00 as needed Medical for Branch Itching. ketoconazol 0 Yes [id number] Apply to [facility] 2 % 5-10 area(s) ity of shampoo 00:00: once daily [place] 00 as needed Medical for Branch Itching. ketoconazol 0 Yes [id number] Apply to [facility] 2 % 5-10 area(s) ity of shampoo 00:00: once daily [place] 00 as needed Medical for Branch Itching. ketoconazol 0 Yes [id number] Apply to [facility] e 2 % 5-10 area(s) ity of shampoo 00:00: once daily [place] 00 as needed Medical for Branch Itching. ketoconazol 2021-0 Yes [id number] Apply to [facility] 2 % 5-10 area(s) ity of shampoo 00:00: once daily [place] 00 as needed Medical for Branch Itching. ketoconazol 0 Yes [id number] Apply to [facility] e 2 % 5-10 area(s) ity of shampoo 00:00: once daily [place] 00 as needed Medical for Branch Itching. ketoconazol 0 Yes [id number] Apply to [facility] e 2 % 5-10 area(s) ity of shampoo 00:00: once daily [place] 00 as needed Medical for Branch Itching. ketoconazol 0 Yes [id number] Apply to [facility] e 2 % 5-10 area(s) ity of shampoo 00:00: once daily [place] 00 as needed Medical for Branch Itching. ketoconazol 0 Yes [id number] Apply to [facility] e 2 % 5-10 area(s) ity of shampoo 00:00: once daily [place] 00 as needed Medical for Branch Itching. ketoconazol 0 Yes [id number] Apply to [facility] e 2 % 5-10 area(s) ity of shampoo 00:00: once daily [place] 00 as needed Medical for Branch Itching. ketoconazol 0 Yes [id number] Apply to [facility] e 2 % 5-10 area(s) ity of shampoo 00:00: once daily [place] 00 as needed Medical for Branch Itching. ketoconazol 0 Yes [id number] Apply to [facility] e 2 % 5-10 area(s) ity of shampoo 00:00: once daily [place] 00 as needed Medical for Branch Itching. ketoconazol 0 Yes [id number] Apply to [facility] 2 % 5-10 area(s) ity of shampoo 00:00: once daily [place] 00 as needed Medical for Branch Itching. ketoconazol 0 Yes [id number] Apply to [facility] 2 % 5-10 area(s) ity of shampoo 00:00: once daily [place] 00 as needed Medical for Branch Itching. ketoconazol 0 Yes [id number] Apply to [facility] 2 % 5-10 area(s) ity of shampoo 00:00: once daily [place] 00 as needed Medical for [facility] Itching. ketoconazol Yes [id number] Apply to [facility] 2 % 5-10 area(s) ity of shampoo 00:00: once daily [place] 00 as needed Medical for [facility] Itching. ketoconazol 0 Yes [id number] Apply to [facility] 2 % 5-10 area(s) ity of shampoo 00:00: once daily [place] 00 as needed Medical for [facility] Itching. ketoconazol 0 Yes [id number] Apply to [facility] 2 % 5-10 area(s) ity of shampoo 00:00: once daily [place] 00 as needed Medical for [facility] Itching. ketoconazol 0 Yes [id number] Apply to [facility] 2 % 5-10 area(s) ity of shampoo 00:00: once daily [place] 00 as needed Medical for [facility] Itching. ketoconazol Yes [id number] Apply to [facility] 2 % 5-10 area(s) ity of shampoo 00:00: once daily [place] 00 as needed Medical for [facility] Itching. ketoconazol Yes [id number] Apply to [facility] 2 % 5-10 area(s) ity of shampoo 00:00: once daily [place] 00 as needed Medical for [facility] Itching. ketoconazol 0 Yes [id number] Apply to [facility] 2 % 5-10 area(s) ity of shampoo 00:00: once daily [place] 00 as needed Medical for Branch Itching. ketoconazol 0 Yes [id number] Apply to [facility] 2 % 5-10 area(s) ity of shampoo 00:00: once daily [place] 00 as needed Medical for [facility] Itching. ketoconazol 0 Yes [id number] Apply to [facility] 2 % 5-10 area(s) ity of shampoo 00:00: once daily [place] 00 as needed Medical for [facility] Itching. ketoconazol 0 Yes [id number] Apply to [facility] 2 % 5-10 area(s) ity of shampoo 00:00: once daily [place] 00 as needed Medical for Branch Itching. ketoconazol 0 Yes [id number] Apply to [facility] 2 % 5-10 area(s) ity of shampoo 00:00: once daily [place] 00 as needed Medical for Branch Itching. ketoconazol 0 Yes [id number] Apply to [facility] 2 % 5-10 area(s) ity of shampoo 00:00: once daily [place] 00 as needed Medical for Branch Itching. ketoconazol 0 Yes [id number] Apply to [facility] 2 % 5-10 area(s) ity of shampoo 00:00: once daily [place] 00 as needed Medical for [facility] Itching. ketoconazol 0 Yes [id number] Apply to [facility] 2 % 5-10 area(s) ity of shampoo 00:00: once daily [place] 00 as needed Medical for Branch Itching. ketoconazol 0 Yes [id number] Apply to [facility] 2 % 5-10 area(s) ity of shampoo 00:00: once daily [place] 00 as needed Medical for Branch Itching. ketoconazol Yes [id number] Apply to [facility] 2 % 5-10 area(s) ity of shampoo 00:00: once daily [place] 00 as needed Medical for Branch Itching. ketoconazol 0 Yes [id number] Apply to [facility] 2 % 5-10 area(s) ity of shampoo 00:00: once daily [place] 00 as needed Medical for Branch Itching. ketoconazol 0 Yes [id number] Apply to [facility] 2 % 5-10 area(s) ity of shampoo 00:00: once daily [place] 00 as needed Medical for Branch Itching. ketoconazol 0 Yes [id number] Apply to [facility] 2 % 5-10 area(s) ity of shampoo 00:00: once daily [place] 00 as needed Medical for Branch Itching. ketoconazol 0 Yes [id number] Apply to [facility] 2 % 5-10 area(s) ity of shampoo 00:00: once daily [place] 00 as needed Medical for Branch Itching. ketoconazol 0 Yes [id number] Apply to [facility] 2 % 5-10 area(s) ity of shampoo 00:00: once daily [place] 00 as needed Medical for Branch Itching. ketoconazol Yes [id number] Apply to [facility] 2 % 5-10 area(s) ity of shampoo 00:00: once daily [place] 00 as needed Medical for Branch Itching. ketoconazol Yes [id number] Apply to [facility] 2 % 5-10 area(s) ity of shampoo 00:00: once daily [place] 00 as needed Medical for Branch Itching. ketoconazol Yes [id number] Apply to [facility] 2 % 5-10 area(s) ity of shampoo 00:00: once daily [place] 00 as needed Medical for Branch Itching. ketoconazol Yes [id number] Apply to [facility] 2 % 5-10 area(s) ity of shampoo 00:00: once daily [place] 00 as needed Medical for Branch Itching. METFORMIN 2021-0 Yes [id number] TAKE 1 [facility] 850 mg 5-02 TABLET BY ity of tablet 00:00: MOUTH 00 THREE Medical TIMES Branch DAILY METFORMIN 2-0 Yes [id number] TAKE 1 [facility] 850 mg 5-02 TABLET BY ity of tablet 00:00: MOUTH THREE Medical TIMES Branch DAILY METFORMIN 2022-0 Yes [id number] TAKE 1 [facility] 850 mg 5-02 TABLET BY ity of tablet 00:00: MOUTH THREE Medical TIMES Branch DAILY METFORMIN 2022-0 Yes [id number] TAKE 1 [facility] 850 mg 5-02 TABLET BY ity of tablet 00:00: MOUTH 00 THREE Medical TIMES Branch DAILY METFORMIN 2022-0 Yes [id number] TAKE 1 [facility] 850 mg 5-02 TABLET BY ity of tablet 00:00: MOUTH 00 THREE Medical TIMES Branch DAILY METFORMIN 2022-0 Yes [id number] TAKE 1 [facility] 850 mg 5-02 TABLET BY ity of tablet 00:00: MOUTH 00 THREE Medical TIMES Branch DAILY METFORMIN 2022-0 Yes [id number] TAKE 1 [facility] 850 mg 5-02 TABLET BY ity of tablet 00:00: MOUTH 00 THREE Medical TIMES Branch DAILY METFORMIN 2022-0 Yes [id number] TAKE 1 [facility] 850 mg 5-02 TABLET BY ity of tablet 00:00: MOUTH THREE Medical TIMES Branch DAILY METFORMIN 2022-0 Yes [id number] TAKE 1 [facility] 850 mg 5-02 TABLET BY ity of tablet 00:00: MOUTH THREE Medical TIMES Branch DAILY METFORMIN 2022-0 Yes [id number] TAKE 1 [facility] 850 mg 5-02 TABLET BY ity of tablet 00:00: MOUTH THREE Medical TIMES Branch DAILY METFORMIN 2022-0 Yes [id number] TAKE 1 [facility] 850 mg 5-02 TABLET BY ity of tablet 00:00: MOUTH THREE Medical TIMES Branch DAILY METFORMIN 2022-0 Yes [id number] TAKE 1 [facility] 850 mg 5-02 TABLET BY ity of tablet 00:00: THREE Medical TIMES Branch DAILY METFORMIN 2022-0 Yes [id number] TAKE 1 [facility] 850 mg 5-02 TABLET BY ity of tablet 00:00: THREE Medical TIMES Branch DAILY METFORMIN 2022-0 Yes [id number] TAKE 1 [facility] 850 mg 5-02 TABLET BY ity of tablet 00:00: MOUTH THREE Medical TIMES Branch DAILY METFORMIN 2022-0 Yes [id number] TAKE 1 [facility] 850 mg 5-02 TABLET BY ity of tablet 00:00: THREE Medical TIMES Branch DAILY METFORMIN 2022-0 Yes [id number] TAKE 1 [facility] 850 mg 5-02 TABLET BY ity of tablet 00:00: THREE Medical TIMES Branch DAILY METFORMIN 2022-0 Yes [id number] TAKE 1 [facility] 850 mg 5-02 TABLET BY ity of tablet 00:00: MOUTH THREE Medical TIMES Branch DAILY METFORMIN 2022-0 Yes [id number] TAKE 1 [facility] 850 mg 5-02 TABLET BY ity of tablet 00:00: MOUTH THREE Medical TIMES Branch DAILY METFORMIN 2022-0 Yes [id number] TAKE 1 [facility] 850 mg 5-02 TABLET BY ity of tablet 00:00: MOUTH THREE Medical TIMES Branch DAILY METFORMIN 2022-0 Yes [id number] TAKE 1 [facility] 850 mg 5-02 TABLET BY ity of tablet 00:00: MOUTH THREE Medical TIMES Branch DAILY METFORMIN 2022-0 2022- No [id number] TAKE 1 [facility] 850 mg 5-02 10-21 TABLET BY ity of tablet 00:00: 00:00 MOUTH [place] 00 :00 THREE Medical TIMES Branch DAILY METFORMIN 2021-0 2021- No [id number] TAKE 1 [facility] 850 mg 5-02 10-21 TABLET BY ity of tablet 00:00: 00:00 MOUTH [place] 00 :00 THREE Medical TIMES Branch DAILY METFORMIN 2021-0 2- No [id number] TAKE 1 [facility] 850 mg 5-02 10-21 TABLET BY ity of tablet 00:00: 00:00 MOUTH [place] 00 :00 THREE Medical TIMES Branch DAILY METFORMIN 2021-0 2021- No [id number] TAKE 1 [facility] 850 mg 5-02 10-21 TABLET BY ity of tablet 00:00: 00:00 MOUTH [place] 00 :00 THREE Medical TIMES Branch DAILY [...] 00 day for Medical E11.9 Branch gabapentin 2021-0 Yes [id number] TAKE 1 [facility] 300 mg 4-11 CAPSULE BY ity of capsule 00:00: MOUTH FOUR [place] 00 TIMES Medical DAILY Branch gabapentin 2022-0 Yes [id number] TAKE 1 [facility] 300 mg 4-11 CAPSULE BY ity of capsule 00:00: MOUTH FOUR [place] 00 TIMES Medical DAILY Branch gabapentin 2022-0 Yes [id number] TAKE 1 [facility] 300 mg 4-11 CAPSULE BY ity of capsule 00:00: MOUTH FOUR [place] 00 TIMES Medical DAILY Branch gabapentin 2022-0 Yes [id number] TAKE 1 [facility] 300 mg 4-11 CAPSULE BY ity of capsule 00:00: MOUTH FOUR [place] 00 TIMES Medical DAILY Branch gabapentin 2022-0 Yes [id number] TAKE 1 [facility] 300 mg 4-11 CAPSULE BY ity of capsule 00:00: MOUTH FOUR [place] 00 TIMES Medical DAILY Branch gabapentin 2022-0 Yes [id number] TAKE 1 [facility] 300 mg 4-11 CAPSULE BY ity of capsule 00:00: MOUTH FOUR [place] 00 TIMES Medical DAILY Branch gabapentin 2022-0 Yes [id number] TAKE 1 [facility] 300 mg 4-11 CAPSULE BY ity of capsule 00:00: MOUTH FOUR [place] 00 TIMES Medical DAILY Branch gabapentin 2022-0 Yes [id number] TAKE 1 [facility] 300 mg 4-11 CAPSULE BY ity of capsule 00:00: MOUTH FOUR [place] 00 TIMES Medical DAILY Branch gabapentin 2022-0 Yes [id number] TAKE 1 [facility] 300 mg 4-11 CAPSULE BY ity of capsule 00:00: MOUTH FOUR [place] 00 TIMES Medical DAILY Branch gabapentin 2022-0 2022- No [id number] TAKE 1 [facility] 300 mg 4-11 04-29 CAPSULE BY ity of capsule 00:00: 00:00 MOUTH FOUR [place] 00 :00 TIMES Medical DAILY Branch TRUE METRIX 202-0 Yes [id number] Use as [facility] GLUCOSE 3-16 directed ity of METER Kit 00:00: for 4 times a Medical day Branch glucose check, ICD E11.9 TRUE METRIX 2021-0 Yes [id number] Use as [facility] GLUCOSE 3-16 directed ity of TEST STRIP 00:00: to check [place] as strip 00 blood Medical sugar QID Branch DX: E11.9 TRUE METRIX 2021-0 Yes [id number] Use as [facility] GLUCOSE 3-16 directed ity of METER Kit 00:00: for 4 [place] 00 times a Medical day Branch glucose check, ICD E11.9 TRUE METRIX 2022-0 Yes [id number] Use as [facility] GLUCOSE 3-16 directed ity of TEST STRIP 00:00: to check [place] as strip 00 blood Medical sugar QID Branch DX: E11.9 TRUE METRIX 2022-0 Yes [id number] Use as [facility] GLUCOSE 3-16 directed ity of METER Kit 00:00: for 4 [place] 00 times a Medical day Branch glucose check, ICD E11.9 TRUE METRIX 2022-0 Yes [id number] Use as [facility] GLUCOSE 3-16 directed ity of TEST STRIP 00:00: to check [place] as strip 00 blood Medical sugar D Branch DX: E11.9 TRUE METRIX 2022-0 Yes [id number] Use as Univers GLUCOSE 3-16 directed ity of METER Kit 00:00: for 4 [place] 00 times a Medical day Branch glucose check, ICD E11.9 TRUE METRIX 2022-0 Yes [id number] Use as Univers GLUCOSE 3-16 directed ity of TEST STRIP 00:00: to check [place] as strip 00 blood Medical sugar D Branch DX: E11.9 TRUE METRIX 2022-0 Yes [id number] Use as Univers GLUCOSE 3-16 directed ity of METER Kit 00:00: for 4 [place] 00 times a Medical day Branch glucose check, ICD E11.9 TRUE METRIX 2022-0 Yes [id number] Use as Univers GLUCOSE 3-16 directed ity of TEST STRIP 00:00: to check [place] as strip 00 blood Medical sugar [facility] Branch DX: E11.9 TRUE METRIX 2022-0 Yes [id number] Use as Univers GLUCOSE 3-16 directed ity of METER Kit 00:00: for 4 [place] 00 times a Medical day Branch glucose check, ICD E11.9 TRUE METRIX 2022-0 Yes [id number] Use as Univers GLUCOSE 3-16 directed ity of TEST STRIP 00:00: to check [place] as strip 00 blood Medical sugar QID Branch DX: E11.9 TRUE METRIX 2022-0 Yes [id number] Use as Univers GLUCOSE 3-16 directed ity of METER Kit 00:00: for 4 [place] 00 times a Medical day Branch glucose check, ICD E11.9 TRUE METRIX 2022-0 Yes [id number] Use as Univers GLUCOSE 3-16 directed ity of TEST STRIP 00:00: to check [place] as strip 00 blood Medical sugar QID Branch DX: E11.9 TRUE METRIX 2022-0 Yes [id number] Use as Univers GLUCOSE 3-16 directed ity of METER Kit 00:00: for 4 [place] 00 times a Medical day Branch glucose check, ICD E11.9 TRUE METRIX 2022-0 Yes [id number] Use as [facility] GLUCOSE 3-16 directed ity of TEST STRIP 00:00: to check [place] as strip 00 blood Medical sugar QID Branch DX: E11.9 TRUE METRIX 2022-0 Yes [id number] Use as Univers GLUCOSE 3-16 directed ity of METER Kit 00:00: for 4 [place] 00 times a Medical day Branch glucose check, ICD E11.9 TRUE METRIX 2022-0 Yes [id number] Use as [facility] GLUCOSE 3-16 directed ity of TEST STRIP 00:00: to check [place] as strip 00 blood Medical sugar D Branch DX: E11.9 TRUE METRIX 2022-0 Yes [id number] Use as [facility] GLUCOSE 3-16 directed ity of METER Kit 00:00: for 4 [place] 00 times a Medical day Branch glucose check, ICD E11.9 TRUE METRIX 2022-0 Yes [id number] Use as [facility] GLUCOSE 3-16 directed ity of TEST STRIP 00:00: to check [place] as strip 00 blood Medical sugar QID Branch DX: E11.9 TRUE METRIX 2022-0 Yes [id number] Use as Univers GLUCOSE 3-16 directed ity of METER Kit 00:00: for 4 [place] 00 times a Medical day Branch glucose check, ICD E11.9 TRUE METRIX 2022-0 Yes [id number] Use as Univers GLUCOSE 3-16 directed ity of TEST STRIP 00:00: to check [place] as strip 00 blood Medical sugar QID Branch DX: E11.9 TRUE METRIX 2022-0 Yes [id number] Use as Univers GLUCOSE 3-16 directed ity of METER Kit 00:00: for 4 [place] 00 times a Medical day Branch glucose check, ICD E11.9 TRUE METRIX 2022-0 Yes [id number] Use as Univers GLUCOSE 3-16 directed ity of TEST STRIP 00:00: to check [place] as strip 00 blood Medical sugar QID Branch DX: E11.9 TRUE METRIX 2022-0 Yes [id number] Use as Univers GLUCOSE 3-16 directed ity of METER Kit 00:00: for 4 [place] 00 times a Medical day Branch glucose check, ICD E11.9 TRUE METRIX 2022-0 Yes [id number] Use as Univers GLUCOSE 3-16 directed ity of TEST STRIP 00:00: to check [place] as strip 00 blood Medical sugar QID Branch DX: E11.9 TRUE METRIX 2022-0 Yes [id number] Use as Univers GLUCOSE 3-16 directed ity of METER Kit 00:00: for 4 [place] 00 times a Medical day Branch glucose check, ICD E11.9 TRUE METRIX 2022-0 Yes [id number] Use as Univers GLUCOSE 3-16 directed ity of TEST STRIP 00:00: to check [place] as strip 00 blood Medical sugar [facility] Branch DX: E11.9 TRUE METRIX 2022-0 Yes [id number] Use as Univers GLUCOSE 3-16 directed ity of METER Kit 00:00: for 4 [place] 00 times a Medical day Branch glucose check, ICD E11.9 TRUE METRIX 2022-0 Yes [id number] Use as [facility] GLUCOSE 3-16 directed ity of TEST STRIP 00:00: to check [place] as strip 00 blood Medical sugar [facility] Branch DX: E11.9 TRUE METRIX 2022-0 Yes [id number] Use as Univers GLUCOSE 3-16 directed ity of METER Kit 00:00: for 4 [place] 00 times a Medical day Branch glucose check, ICD E11.9 TRUE METRIX 2022-0 Yes [id number] Use as Univers GLUCOSE 3-16 directed ity of TEST STRIP 00:00: to check [place] as strip 00 blood Medical sugar [facility] DX: E11.9 TRUE METRIX 2022-0 Yes [id number] Use as Univers GLUCOSE 3-16 directed ity of METER Kit 00:00: for 4 [place] 00 times a Medical day Branch glucose check, ICD E11.9 TRUE METRIX 2022-0 Yes [id number] Use as Univers GLUCOSE 3-16 directed ity of TEST STRIP 00:00: to check [place] as strip 00 blood Medical sugar QID Branch DX: E11.9 TRUE METRIX 2022-0 Yes [id number] Use as Univers GLUCOSE 3-16 directed ity of METER Kit 00:00: for 4 [place] 00 times a Medical day Branch glucose check, ICD E11.9 TRUE METRIX 2022-0 Yes [id number] Use as Univers GLUCOSE 3-16 directed ity of TEST STRIP 00:00: to check [place] as strip 00 blood Medical sugar QID Branch DX: E11.9 TRUE METRIX 2022-0 Yes [id number] Use as Univers GLUCOSE 3-16 directed ity of METER Kit 00:00: for 4 [place] 00 times a Medical day Branch glucose check, ICD E11.9 TRUE METRIX 2022-0 Yes [id number] Use as Univers GLUCOSE 3-16 directed ity of TEST STRIP 00:00: to check [place] as strip 00 blood Medical sugar QID Branch DX: E11.9 TRUE METRIX 2022-0 Yes [id number] Use as Univers GLUCOSE 3-16 directed ity of METER Kit 00:00: for 4 [place] 00 times a Medical day Branch glucose check, ICD E11.9 TRUE METRIX 2022-0 Yes [id number] Use as Univers GLUCOSE 3-16 directed ity of TEST STRIP 00:00: to check [place] as strip 00 blood Medical sugar QID Branch DX: E11.9 TRUE METRIX 2022-0 Yes [id number] Use as Univers GLUCOSE 3-16 directed ity of METER Kit 00:00: for 4 [place] 00 times a Medical day Branch glucose check, ICD E11.9 TRUE METRIX 2022-0 Yes [id number] Use as Univers GLUCOSE 3-16 directed ity of TEST STRIP 00:00: to check [place] as strip 00 blood Medical sugar QID Branch DX: E11.9 TRUE METRIX 2022-0 Yes [id number] Use as Univers GLUCOSE 3-16 directed ity of METER Kit 00:00: for 4 [place] 00 times a Medical day Branch glucose check, ICD E11.9 TRUE METRIX 2022-0 Yes [id number] Use as Univers GLUCOSE 3-16 directed ity of TEST STRIP 00:00: to check [place] as strip 00 blood Medical sugar QID Branch DX: E11.9 TRUE METRIX 2022-0 Yes [id number] Use as Univers GLUCOSE 3-16 directed ity of METER Kit 00:00: for 4 [place] 00 times a Medical day Branch glucose check, ICD E11.9 TRUE METRIX 2022-0 Yes [id number] Use as Univers GLUCOSE 3-16 directed ity of TEST STRIP 00:00: to check [place] as strip 00 blood Medical sugar QID Branch DX: E11.9 TRUE METRIX 2022-0 Yes [id number] Use as Univers GLUCOSE 3-16 directed ity of METER Kit 00:00: for 4 [place] 00 times a Medical day Branch glucose check, ICD E11.9 TRUE METRIX 2022-0 Yes [id number] Use as Univers GLUCOSE 3-16 directed ity of TEST STRIP 00:00: to check [place] as strip 00 blood Medical sugar QID Branch DX: E11.9 TRUE METRIX 2022-0 Yes [id number] Use as Univers GLUCOSE 3-16 directed ity of METER Kit 00:00: for 4 [place] 00 times a Medical day Branch glucose check, ICD E11.9 TRUE METRIX 2022-0 Yes [id number] Use as Univers GLUCOSE 3-16 directed ity of TEST STRIP 00:00: to check [place] as strip 00 blood Medical sugar D Branch DX: E11.9 TRUE METRIX 2022-0 Yes [id number] Use as Univers GLUCOSE 3-16 directed ity of METER Kit 00:00: for 4 [place] 00 times a Medical day Branch glucose check, ICD E11.9 TRUE METRIX 2022-0 Yes [id number] Use as Univers GLUCOSE 3-16 directed ity of TEST STRIP 00:00: to check [place] as strip 00 blood Medical sugar D Branch DX: E11.9 TRUE METRIX 2022-0 Yes [id number] Use as Univers GLUCOSE 3-16 directed ity of METER Kit 00:00: for 4 [place] 00 times a Medical day Branch glucose check, ICD E11.9 TRUE METRIX 2022-0 Yes [id number] Use as Univers GLUCOSE 3-16 directed ity of TEST STRIP 00:00: to check [place] as strip 00 blood Medical sugar [facility] Branch DX: E11.9 TRUE METRIX 2022-0 Yes [id number] Use as Univers GLUCOSE 3-16 directed ity of METER Kit 00:00: for 4 [place] 00 times a Medical day Branch glucose check, ICD E11.9 TRUE METRIX 2022-0 Yes [id number] Use as Univers GLUCOSE 3-16 directed ity of TEST STRIP 00:00: to check [place] as strip 00 blood Medical sugar QID Branch DX: E11.9 TRUE METRIX 2022-0 Yes [id number] Use as Univers GLUCOSE 3-16 directed ity of METER Kit 00:00: for 4 [place] 00 times a Medical day Branch glucose check, ICD E11.9 TRUE METRIX 2022-0 Yes [id number] Use as Univers GLUCOSE 3-16 directed ity of TEST STRIP 00:00: to check [place] as strip 00 blood Medical sugar QID Branch DX: E11.9 TRUE METRIX 2022-0 Yes [id number] Use as Univers GLUCOSE 3-16 directed ity of METER Kit 00:00: for 4 [place] 00 times a Medical day Branch glucose check, ICD E11.9 TRUE METRIX 2022-0 Yes [id number] Use as Univers GLUCOSE 3-16 directed ity of TEST STRIP 00:00: to check [place] as strip 00 blood Medical sugar QID Branch DX: E11.9 TRUE METRIX 2022-0 Yes [id number] Use as Univers GLUCOSE 3-16 directed ity of METER Kit 00:00: for 4 [place] 00 times a Medical day Branch glucose check, ICD E11.9 TRUE METRIX 2022-0 Yes [id number] Use as [facility] GLUCOSE 3-16 directed ity of TEST STRIP 00:00: to check [place] as strip 00 blood Medical sugar QID Branch DX: E11.9 TRUE METRIX 2022-0 Yes [id number] [facility] as [facility] GLUCOSE 3-16 directed ity of METER Kit 00:00: for 4 [place] 00 times a Medical day Branch glucose check, ICD E11.9 TRUE METRIX 2022-0 Yes [id number] Use as [facility] GLUCOSE 3-16 directed ity of TEST STRIP 00:00: to check [facility] as strip 00 blood Medical sugar QID Branch DX: E11.9 TRUE METRIX 2022-0 Yes [id number] Use as [facility] GLUCOSE 3-16 directed ity of METER Kit 00:00: for 4 [place] 00 times a Medical day Branch glucose check, ICD E11.9 TRUE METRIX 2022-0 Yes [id number] Use as [facility] GLUCOSE 3-16 directed ity of TEST STRIP 00:00: to check [place] as strip 00 blood Medical sugar QID Branch DX: E11.9 TRUE METRIX 2022-0 Yes [id number] Use as [facility] GLUCOSE 3-16 directed ity of METER Kit 00:00: for 4 [place] 00 times a Medical day Branch glucose check, ICD E11.9 TRUE METRIX 2022-0 Yes [id number] Use as [facility] GLUCOSE 3-16 directed ity of TEST STRIP 00:00: to check [place] as strip 00 blood Medical sugar QID Branch DX: E11.9 TRUE METRIX 2022-0 Yes [id number] Use as [facility] GLUCOSE 3-16 directed ity of METER Kit 00:00: for 4 [place] 00 times a Medical day Branch glucose check, ICD E11.9 TRUE METRIX 2022-0 Yes [id number] Use as [facility] GLUCOSE 3-16 directed ity of TEST STRIP 00:00: to check [place] as strip 00 blood Medical sugar QID Branch DX: E11.9 TRUE METRIX 2022-0 Yes [id number] Use as [facility] GLUCOSE 3-16 directed ity of METER Kit 00:00: for 4 [place] 00 times a Medical day Branch glucose check, ICD E11.9 TRUE METRIX 2022-0 Yes [id number] Use as [facility] GLUCOSE 3-16 directed ity of TEST STRIP 00:00: to check [place] as strip 00 blood Medical sugar D Branch DX: E11.9 TRUE METRIX 2022-0 Yes [id number] Use as [facility] GLUCOSE 3-16 directed ity of METER Kit 00:00: for 4 [place] 00 times a Medical day Branch glucose check, ICD E11.9 TRUE METRIX 2022-0 Yes [id number] Use as [facility] GLUCOSE 3-16 directed ity of TEST STRIP 00:00: to check [place] as strip 00 blood Medical sugar D Branch DX: E11.9 TRUE METRIX 2022-0 Yes [id number] Use as [facility] GLUCOSE 3-16 directed ity of METER Kit 00:00: for 4 [place] 00 times a Medical day Branch glucose check, ICD E11.9 TRUE METRIX 2022-0 Yes [id number] Use as [facility] GLUCOSE 3-16 directed ity of TEST STRIP 00:00: to check [place] as strip 00 blood Medical sugar D Branch DX: E11.9 TRUE METRIX 2022-0 Yes [id number] Use as [facility] GLUCOSE 3-16 directed ity of METER Kit 00:00: for 4 [place] 00 times a Medical day Branch glucose check, ICD E11.9 TRUE METRIX 2022-0 Yes [id number] Use as [facility] GLUCOSE 3-16 directed ity of TEST STRIP 00:00: to check [place] as strip 00 blood Medical sugar QID Branch DX: E11.9 TRUE METRIX 2022-0 Yes [id number] Use as [facility] GLUCOSE 3-16 directed ity of METER Kit 00:00: for 4 [place] 00 times a Medical day Branch glucose check, ICD E11.9 TRUE METRIX 2022-0 Yes [id number] Use as [facility] GLUCOSE 3-16 directed ity of TEST STRIP 00:00: to check [place] as strip 00 blood Medical sugar QID Branch DX: E11.9 TRUE METRIX 2022-0 Yes [id number] Use as [facility] GLUCOSE 3-16 directed ity of METER Kit 00:00: for 4 [place] 00 times a Medical day Branch glucose check, ICD E11.9 TRUE METRIX 2022-0 Yes [id number] Use as [facility] GLUCOSE 3-16 directed ity of TEST STRIP 00:00: to check [place] as strip 00 blood Medical sugar QID Branch DX: E11.9 TRUE METRIX 2022-0 Yes [id number] Use as [facility] GLUCOSE 3-16 directed ity of METER Kit 00:00: for 4 [place] 00 times a Medical day Branch glucose check, ICD E11.9 TRUE METRIX 2022-0 Yes [id number] Use as [facility] GLUCOSE 3-16 directed ity of TEST STRIP 00:00: to check [place] as strip 00 blood Medical sugar QID Branch DX: E11.9 TRUE METRIX 2022-0 Yes [id number] Use as [facility] GLUCOSE 3-16 directed ity of METER Kit 00:00: for 4 [place] 00 times a Medical day Branch glucose check, ICD E11.9 TRUE METRIX 2022-0 Yes [id number] Use as [facility] GLUCOSE 3-16 directed ity of TEST STRIP 00:00: to check [place] as strip 00 blood Medical sugar QID Branch DX: E11.9 TRUE METRIX 2022-0 Yes [id number] Use as [facility] GLUCOSE 3-16 directed ity of METER Kit 00:00: for 4 [place] 00 times a Medical day Branch glucose check, ICD E11.9 TRUE METRIX 2022-0 Yes [id number] Use as [facility] GLUCOSE 3-16 directed ity of TEST STRIP 00:00: to check [place] as strip 00 blood Medical sugar QID Branch DX: E11.9 TRUE METRIX 2022-0 Yes [id number] Use as [facility] GLUCOSE 3-16 directed ity of METER Kit 00:00: for 4 [place] 00 times a Medical day Branch glucose check, ICD E11.9 TRUE METRIX 2022-0 Yes [id number] Use as [facility] GLUCOSE 3-16 directed ity of TEST STRIP 00:00: to check [place] as strip 00 blood Medical sugar QID Branch DX: E11.9 TRUE METRIX 2022-0 Yes [id number] Use as [facility] GLUCOSE 3-16 directed ity of METER Kit 00:00: for 4 [place] 00 times a Medical day Branch glucose check, ICD E11.9 TRUE METRIX 2022-0 Yes [id number] Use as [facility] GLUCOSE 3-16 directed ity of TEST STRIP 00:00: to check [place] as strip 00 blood Medical sugar QID Branch DX: E11.9 TRUE METRIX 2022-0 Yes [id number] Use as [facility] GLUCOSE 3-16 directed ity of METER Kit 00:00: for 4 [place] 00 times a Medical day Branch glucose check, ICD E11.9 TRUE METRIX 2022-0 Yes [id number] Use as [facility] GLUCOSE 3-16 directed ity of TEST STRIP 00:00: to check [place] as strip 00 blood Medical sugar D Branch DX: E11.9 TRUE METRIX 2022-0 Yes [id number] Use as [facility] GLUCOSE 3-16 directed ity of METER Kit 00:00: for 4 [place] 00 times a Medical day Branch glucose check, ICD E11.9 TRUE METRIX 2022-0 Yes [id number] Use as [facility] GLUCOSE 3-16 directed ity of TEST STRIP 00:00: to check [place] as strip 00 blood Medical sugar D Branch DX: E11.9 TRUE METRIX 2022-0 Yes [id number] Use as [facility] GLUCOSE 3-16 directed ity of METER Kit 00:00: for 4 [place] 00 times a Medical day Branch glucose check, ICD E11.9 TRUE METRIX 2022-0 Yes [id number] Use as [facility] GLUCOSE 3-16 directed ity of TEST STRIP 00:00: to check [place] as strip 00 blood Medical sugar D Branch DX: E11.9 TRUE METRIX 2022-0 Yes [id number] Use as [facility] GLUCOSE 3-16 directed ity of METER Kit 00:00: for 4 [place] 00 times a Medical day Branch glucose check, ICD E11.9 TRUE METRIX 2022-0 Yes [id number] Use as [facility] GLUCOSE 3-16 directed ity of TEST STRIP 00:00: to check [place] as strip 00 blood Medical sugar QID Branch DX: E11.9 TRUE METRIX 2022-0 Yes [id number] Use as [facility] GLUCOSE 3-16 directed ity of METER Kit 00:00: for 4 [place] 00 times a Medical day Branch glucose check, ICD E11.9 TRUE METRIX 2022-0 Yes [id number] Use as [facility] GLUCOSE 3-16 directed ity of TEST STRIP 00:00: to check [place] as strip 00 blood Medical sugar QID Branch DX: E11.9 TRUE METRIX 2022-0 Yes [id number] Use as [facility] GLUCOSE 3-16 directed ity of METER Kit 00:00: for 4 [place] 00 times a Medical day Branch glucose check, ICD E11.9 TRUE METRIX 2022-0 Yes [id number] Use as [facility] GLUCOSE 3-16 directed ity of TEST STRIP 00:00: to check [place] as strip 00 blood Medical sugar QID Branch DX: E11.9 TRUE METRIX 2022-0 Yes [id number] Use as [facility] GLUCOSE 3-16 directed ity of METER Kit 00:00: for 4 [place] 00 times a Medical day Branch glucose check, ICD E11.9 TRUE METRIX 2022-0 Yes [id number] Use as [facility] GLUCOSE 3-16 directed ity of TEST STRIP 00:00: to check [place] as strip 00 blood Medical sugar QID Branch DX: E11.9 TRUE METRIX 2022-0 Yes [id number] Use as [facility] GLUCOSE 3-16 directed ity of METER Kit 00:00: for 4 [place] 00 times a Medical day Branch glucose check, ICD E11.9 TRUE METRIX 2022-0 Yes [id number] Use as [facility] GLUCOSE 3-16 directed ity of TEST STRIP 00:00: to check [place] as strip 00 blood Medical sugar QID Branch DX: E11.9 TRUE METRIX 2022-0 Yes [id number] Use as [facility] GLUCOSE 3-16 directed ity of METER Kit 00:00: for 4 [place] 00 times a Medical day Branch glucose check, ICD E11.9 TRUE METRIX 2022-0 Yes [id number] Use as [facility] GLUCOSE 3-16 directed ity of TEST STRIP 00:00: to check [place] as strip 00 blood Medical sugar QID Branch DX: E11.9 TRUE METRIX 2022-0 Yes [id number] Use as [facility] GLUCOSE 3-16 directed ity of METER Kit 00:00: for 4 [place] 00 times a Medical day Branch glucose check, ICD E11.9 TRUE METRIX 2022-0 Yes [id number] Use as [facility] GLUCOSE 3-16 directed ity of TEST STRIP 00:00: to check [place] as strip 00 blood Medical sugar QID Branch DX: E11.9 TRUE METRIX 2022-0 Yes [id number] Use as [facility] GLUCOSE 3-16 directed ity of METER Kit 00:00: for 4 [place] 00 times a Medical day Branch glucose check, ICD E11.9 TRUE METRIX 2022-0 Yes [id number] Use as [facility] GLUCOSE 3-16 directed ity of TEST STRIP 00:00: to check [place] as strip 00 blood Medical sugar QID Branch DX: E11.9 TRUE METRIX 2022-0 Yes [id number] Use as [facility] GLUCOSE 3-16 directed ity of METER Kit 00:00: for 4 [place] 00 times a Medical day Branch glucose check, ICD E11.9 TRUE METRIX 2022-0 Yes [id number] Use as [facility] GLUCOSE 3-16 directed ity of TEST STRIP 00:00: to check [place] as strip 00 blood Medical sugar QID Branch DX: E11.9 TRUE METRIX 2022-0 Yes [id number] Use as [facility] GLUCOSE 3-16 directed ity of METER Kit 00:00: for 4 [place] 00 times a Medical day Branch glucose check, ICD E11.9 TRUE METRIX 2022-0 Yes [id number] Use as [facility] GLUCOSE 3-16 directed ity of TEST STRIP 00:00: to check [place] as strip 00 blood Medical sugar D Branch DX: E11.9 TRUE METRIX 2022-0 Yes [id number] Use as [facility] GLUCOSE 3-16 directed ity of METER Kit 00:00: for 4 [place] 00 times a Medical day Branch glucose check, ICD E11.9 TRUE METRIX 2022-0 Yes [id number] Use as [facility] GLUCOSE 3-16 directed ity of TEST STRIP 00:00: to check [place] as strip 00 blood Medical sugar D Branch DX: E11.9 TRUE METRIX 2022-0 Yes [id number] Use as [facility] GLUCOSE 3-16 directed ity of METER Kit 00:00: for 4 [place] 00 times a Medical day Branch glucose check, ICD E11.9 TRUE METRIX 2022-0 Yes [id number] Use as [facility] GLUCOSE 3-16 directed ity of TEST STRIP 00:00: to check [place] as strip 00 blood Medical sugar QID Branch DX: E11.9 TRUE METRIX 2022-0 Yes [id number] Use as [facility] GLUCOSE 3-16 directed ity of METER Kit 00:00: for 4 [place] 00 times a Medical day Branch glucose check, ICD E11.9 TRUE METRIX 2022-0 Yes [id number] Use as [facility] GLUCOSE 3-16 directed ity of TEST STRIP 00:00: to check [place] as strip 00 blood Medical sugar QID Branch DX: E11.9 TRUE METRIX 2022-0 Yes [id number] Use as [facility] GLUCOSE 3-16 directed ity of METER Kit 00:00: for 4 [place] 00 times a Medical day Branch glucose check, ICD E11.9 TRUE METRIX 2022-0 Yes [id number] Use as [facility] GLUCOSE 3-16 directed ity of TEST STRIP 00:00: to check [place] as strip 00 blood Medical sugar QID Branch DX: E11.9 TRUE METRIX 2022-0 Yes [id number] Use as [facility] GLUCOSE 3-16 directed ity of METER Kit 00:00: for 4 [place] 00 times a Medical day Branch glucose check, ICD E11.9 TRUE METRIX 2022-0 Yes [id number] Use as [facility] GLUCOSE 3-16 directed ity of TEST STRIP 00:00: to check [place] as strip 00 blood Medical sugar QID Branch DX: E11.9 TRUE METRIX 2022-0 Yes [id number] Use as [facility] GLUCOSE 3-16 directed ity of METER Kit 00:00: for 4 [place] 00 times a Medical day Branch glucose check, ICD E11.9 TRUE METRIX 2-0 Yes [id number] Use as [facility] GLUCOSE 3-16 directed ity of TEST STRIP 00:00: to check [place] as strip 00 blood Medical sugar QID Branch DX: E11.9 TRUE METRIX 2-0 Yes [id number] Use as [facility] GLUCOSE 3-16 directed ity of METER Kit 00:00: for 4 [place] 00 times a Medical day Branch glucose check, ICD E11.9 TRUE METRIX 2022-0 Yes [id number] Use as [facility] GLUCOSE 3-16 directed ity of TEST STRIP 00:00: to check [place] as strip 00 blood Medical sugar QID Branch DX: E11.9 TRUE METRIX 2022-0 Yes [id number] Use as [facility] GLUCOSE 3-16 directed ity of METER Kit 00:00: for 4 [place] 00 times a Medical day Branch glucose check, ICD E11.9 TRUE METRIX 2022-0 Yes [id number] Use as [facility] GLUCOSE 3-16 directed ity of TEST STRIP 00:00: to check [place] as strip 00 blood Medical sugar QID Branch DX: E11.9 TRUE METRIX 2022-0 Yes [id number] Use as [facility] GLUCOSE 3-16 directed ity of METER Kit 00:00: for 4 [place] 00 times a Medical day Branch glucose check, ICD E11.9 TRUE METRIX 2022-0 Yes [id number] Use as [facility] GLUCOSE 3-16 directed ity of TEST STRIP 00:00: to check [place] as strip 00 blood Medical sugar QID Branch DX: E11.9 TRUE METRIX 2022-0 Yes [id number] Use as [facility] GLUCOSE 3-16 directed ity of METER Kit 00:00: for 4 [place] times a Medical day Branch glucose check, ICD E11.9 TRUE METRIX 2-0 Yes [id number] Use as [facility] GLUCOSE 3-16 directed ity of TEST STRIP 00:00: to check [place] as strip 00 blood Medical sugar QID Branch DX: E11.9 TRUE METRIX 2022-0 Yes [id number] Use as [facility] GLUCOSE 3-16 directed ity of METER Kit 00:00: for 4 [place] times a Medical day Branch glucose check, ICD E11.9 TRUE METRIX 2-0 Yes [id number] Use as [facility] GLUCOSE 3-16 directed ity of TEST STRIP 00:00: to check [place] as strip 00 blood Medical sugar QID Branch DX: E11.9 TRUE METRIX 2022-0 Yes [id number] Use as [facility] GLUCOSE 3-16 directed ity of METER Kit 00:00: for 4 [place] times a Medical day Branch glucose check, ICD E11.9 TRUE METRIX 2-0 Yes [id number] Use as [facility] GLUCOSE 3-16 directed ity of TEST STRIP 00:00: to check [place] as strip 00 blood Medical sugar D Branch DX: E11.9 TRUE METRIX 2022-0 Yes [id number] Use as [facility] GLUCOSE 3-16 directed ity of METER Kit 00:00: for 4 [place] times a Medical day Branch glucose check, ICD E11.9 TRUE METRIX 2-0 Yes [id number] Use as [facility] GLUCOSE 3-16 directed ity of TEST STRIP 00:00: to check [place] as strip 00 blood Medical sugar QID Branch DX: E11.9 SPIRONOLACT 2021-0 Yes [id number] TAKE 1 [facility] ONE 25 mg 1-31 TABLET BY ity o f tablet 00:00: MOUTH TWICE Medical DAILY Branch FUROSEMIDE 2021-0 Yes TAKE 1 Un[facility] rs 80 mg 1-31 TABLET BY ity of tablet 00:00: MOUTH TWICE Medical DAILY Branch AMLODIPINE 2022-0 Yes [id number] 5mg TAKE 1 U nivers 5 mg tablet 1-31 TABLET BY ity of 00:00: [facility] DAILY Medical Branch SPIRONOLACT 2022-0 Yes [id number] TAKE 1 [facility] ONE 25 mg 1-31 TABLET BY ity o f tablet 00:00: [facility] TWICE Medical DAILY Branch FUROSEMIDE 2022-0 Yes TAKE 1 Unive rs 80 mg 1-31 TABLET BY ity of tablet 00:00: [facility] TWICE Medical DAILY Branch AMLODIPINE 2022-0 Yes [id number] 5mg TAKE 1 U nivers 5 mg tablet 1-31 TABLET BY ity of 00:00: [facility] DAILY Medical Branch SPIRONOLACT 2022-0 Yes [id number] TAKE 1 [facility] ONE 25 mg 1-31 TABLET BY ity o f tablet 00:00: [facility] TWICE Medical DAILY Branch FUROSEMIDE 2022-0 Yes TAKE 1 Unive rs 80 mg 1-31 TABLET BY ity of tablet 00:00: [facility] TWICE Medical DAILY Branch AMLODIPINE 2022-0 Yes [id number] 5mg TAKE 1 U nivers 5 mg tablet 1-31 TABLET BY ity of 00:00: [facility] DAILY Medical Branch SPIRONOLACT 2022-0 Yes [id number] TAKE 1 [facility] ONE 25 mg 1-31 TABLET BY ity o f tablet 00:00: [facility] TWICE Medical DAILY Branch FUROSEMIDE 2022-0 Yes TAKE 1 Unive rs 80 mg 1-31 TABLET BY ity of tablet 00:00: [facility] TWICE Medical DAILY Branch AMLODIPINE 2022-0 Yes [id number] 5mg TAKE 1 U nivers 5 mg tablet 1-31 TABLET BY ity of 00:00: [facility] DAILY Medical Branch SPIRONOLACT 2022-0 Yes [id number] TAKE 1 [facility] ONE 25 mg 1-31 TABLET BY ity o f tablet 00:00: [facility] TWICE Medical DAILY Branch FUROSEMIDE 2022-0 Yes TAKE 1 Unive rs 80 mg 1-31 TABLET BY ity of tablet 00:00: [facility] TWICE Medical DAILY Branch AMLODIPINE 2022-0 Yes [id number] 5mg TAKE 1 U nivers 5 mg tablet 1-31 TABLET BY ity of 00:00: [facility] DAILY Medical Branch SPIRONOLACT 2022-0 Yes [id number] TAKE 1 [facility] ONE 25 mg 1-31 TABLET BY ity o f tablet 00:00: MOUTH TWICE Medical DAILY Branch FUROSEMIDE 2022-0 Yes TAKE 1 Unive rs 80 mg 1-31 TABLET BY ity of tablet 00:00: MOUTH TWICE Medical DAILY Branch AMLODIPINE 2022-0 Yes [id number] 5mg TAKE 1 U nivers 5 mg tablet 1-31 TABLET BY ity of 00:00: MOUTH [place] DAILY Medical Branch SPIRONOLACT 2022-0 Yes [id number] TAKE 1 [facility] ONE 25 mg 1-31 TABLET BY ity o f tablet 00:00: MOUTH TWICE Medical DAILY Branch FUROSEMIDE 2022-0 Yes TAKE 1 Un[facility] rs 80 mg 1-31 TABLET BY ity of tablet 00:00: MOUTH [place] TWICE Medical DAILY Branch AMLODIPINE 2022-0 Yes [id number] 5mg TAKE 1 U nivers 5 mg tablet 1-31 TABLET BY ity of 00:00: MOUTH [place] DAILY Medical Branch SPIRONOLACT 2022-0 Yes [id number] TAKE 1 [facility] ONE 25 mg 1-31 TABLET BY ity o f tablet 00:00: MOUTH [place] TWICE Medical DAILY Branch FUROSEMIDE 2022-0 Yes TAKE 1 Unive rs 80 mg 1-31 TABLET BY ity of tablet 00:00: MOUTH [place] TWICE Medical DAILY Branch AMLODIPINE 2022-0 Yes [id number] 5mg TAKE 1 U nivers 5 mg tablet 1-31 TABLET BY ity of 00:00: MOUTH [place] DAILY Medical Branch SPIRONOLACT 2022-0 Yes [id number] TAKE 1 [facility] ONE 25 mg 1-31 TABLET BY ity o f tablet 00:00: [facility] TWICE Medical DAILY Branch FUROSEMIDE 2022-0 Yes TAKE 1 Unive rs 80 mg 1-31 TABLET BY ity of tablet 00:00: [facility] TWICE Medical DAILY Branch AMLODIPINE 2022-0 Yes [id number] 5mg TAKE 1 U nivers 5 mg tablet 1-31 TABLET BY ity of 00:00: MOUTH [place] DAILY Medical Branch SPIRONOLACT 2022-0 Yes [id number] TAKE 1 [facility] ONE 25 mg 1-31 TABLET BY ity o f tablet 00:00: [facility] TWICE Medical DAILY Branch FUROSEMIDE 2022-0 Yes TAKE 1 Unive rs 80 mg 1-31 TABLET BY ity of tablet 00:00: MOUTH [place] TWICE Medical DAILY Branch AMLODIPINE 2022-0 Yes [id number] 5mg TAKE 1 U nivers 5 mg tablet 1-31 TABLET BY ity of 00:00: [facility] DAILY Medical Branch SPIRONOLACT 2022-0 Yes [id number] TAKE 1 [facility] ONE 25 mg 1-31 TABLET BY ity o f tablet 00:00: [facility] TWICE Medical DAILY Branch FUROSEMIDE 2022-0 Yes TAKE 1 Unive rs 80 mg 1-31 TABLET BY ity of tablet 00:00: [facility] TWICE Medical DAILY Branch AMLODIPINE 2022-0 Yes [id number] 5mg TAKE 1 U nivers 5 mg tablet 1-31 TABLET BY ity of 00:00: [facility] DAILY Medical Branch SPIRONOLACT 2022-0 Yes [id number] TAKE 1 [facility] ONE 25 mg 1-31 TABLET BY ity o f tablet 00:00: [facility] TWICE Medical DAILY Branch FUROSEMIDE 2022-0 Yes TAKE 1 Unive rs 80 mg 1-31 TABLET BY ity of tablet 00:00: [facility] TWICE Medical DAILY Branch AMLODIPINE 2022-0 Yes [id number] 5mg TAKE 1 U nivers 5 mg tablet 1-31 TABLET BY ity of 00:00: [facility] DAILY Medical Branch SPIRONOLACT 2022-0 Yes [id number] TAKE 1 [facility] ONE 25 mg 1-31 TABLET BY ity o f tablet 00:00: [facility] TWICE Medical DAILY Branch FUROSEMIDE 2022-0 Yes TAKE 1 Unive rs 80 mg 1-31 TABLET BY ity of tablet 00:00: [facility] TWICE Medical DAILY Branch AMLODIPINE 2022-0 Yes [id number] 5mg TAKE 1 U nivers 5 mg tablet 1-31 TABLET BY ity of 00:00: [facility] DAILY Medical Branch SPIRONOLACT 2022-0 Yes [id number] TAKE 1 [facility] ONE 25 mg 1-31 TABLET BY ity o f tablet 00:00: [facility] TWICE Medical DAILY Branch FUROSEMIDE 2022-0 Yes TAKE 1 Unive rs 80 mg 1-31 TABLET BY ity of tablet 00:00: [facility] TWICE Medical DAILY Branch AMLODIPINE 2022-0 Yes [id number] 5mg TAKE 1 U nivers 5 mg tablet 1-31 TABLET BY ity of 00:00: [facility] DAILY Medical Branch SPIRONOLACT 2022-0 Yes [id number] TAKE 1 [facility] ONE 25 mg 1-31 TABLET BY ity o f tablet 00:00: [facility] 00 TWICE Medical DAILY Branch FUROSEMIDE 2022-0 Yes TAKE 1 Unive rs 80 mg 1-31 TABLET BY ity of tablet 00:00: TWICE Medical DAILY Branch AMLODIPINE 2022-0 Yes [id number] 5mg TAKE 1 U nivers 5 mg tablet 1-31 TABLET BY ity of 00:00: DAILY Medical Branch SPIRONOLACT 2022-0 Yes [id number] TAKE 1 [facility] ONE 25 mg 1-31 TABLET BY ity o f tablet 00:00: MOUTH TWICE Medical DAILY Branch FUROSEMIDE 2022-0 Yes TAKE 1 Unive rs 80 mg 1-31 TABLET BY ity of tablet 00:00: TWICE Medical DAILY Branch AMLODIPINE 2022-0 Yes [id number] 5mg TAKE 1 U nivers 5 mg tablet 1-31 TABLET BY ity of 00:00: [facility] DAILY Medical Branch SPIRONOLACT 2022-0 Yes [id number] TAKE 1 [facility] ONE 25 mg 1-31 TABLET BY ity o f tablet 00:00: TWICE Medical DAILY Branch FUROSEMIDE 2022-0 Yes TAKE 1 Unive rs 80 mg 1-31 TABLET BY ity of tablet 00:00: TWICE Medical DAILY Branch AMLODIPINE 2022-0 Yes [id number] 5mg TAKE 1 U nivers 5 mg tablet 1-31 TABLET BY ity of 00:00: DAILY Medical Branch SPIRONOLACT 2022-0 Yes [id number] TAKE 1 [facility] ONE 25 mg 1-31 TABLET BY ity o f tablet 00:00: TWICE Medical DAILY Branch FUROSEMIDE 2022-0 Yes TAKE 1 Unive rs 80 mg 1-31 TABLET BY ity of tablet 00:00: [facility] TWICE Medical DAILY Branch AMLODIPINE 2022-0 Yes [id number] 5mg TAKE 1 U nivers 5 mg tablet 1-31 TABLET BY ity of 00:00: [facility] DAILY Medical Branch SPIRONOLACT 2022-0 Yes [id number] TAKE 1 [facility] ONE 25 mg 1-31 TABLET BY ity o f tablet 00:00: TWICE Medical DAILY Branch FUROSEMIDE 2022-0 Yes TAKE 1 Unive rs 80 mg 1-31 TABLET BY ity of tablet 00:00: [facility] TWICE Medical DAILY Branch AMLODIPINE 2022-0 Yes [id number] 5mg TAKE 1 U nivers 5 mg tablet 1-31 TABLET BY ity of 00:00: MOUTH DAILY Medical Branch SPIRONOLACT 2022-0 Yes [id number] TAKE 1 [facility] ONE 25 mg 1-31 TABLET BY ity o f tablet 00:00: MOUTH TWICE Medical DAILY Branch FUROSEMIDE 2022-0 Yes TAKE 1 Unive rs 80 mg 1-31 TABLET BY ity of tablet 00:00: MOUTH TWICE Medical DAILY Branch AMLODIPINE 2022-0 Yes [id number] 5mg TAKE 1 U nivers 5 mg tablet 1-31 TABLET BY ity of 00:00: MOUTH DAILY Medical Branch SPIRONOLACT 2022-0 Yes [id number] TAKE 1 [facility] ONE 25 mg 1-31 TABLET BY ity o f tablet 00:00: [facility] TWICE Medical DAILY Branch FUROSEMIDE 2022-0 Yes TAKE 1 Unive rs 80 mg 1-31 TABLET BY ity of tablet 00:00: [facility] TWICE Medical DAILY Branch AMLODIPINE 2022-0 Yes [id number] 5mg TAKE 1 U nivers 5 mg tablet 1-31 TABLET BY ity of 00:00: MOUTH [place] DAILY Medical Branch SPIRONOLACT 2022-0 Yes [id number] TAKE 1 [facility] ONE 25 mg 1-31 TABLET BY ity o f tablet 00:00: [facility] TWICE Medical DAILY Branch FUROSEMIDE 2022-0 Yes TAKE 1 Unive rs 80 mg 1-31 TABLET BY ity of tablet 00:00: [facility] TWICE Medical DAILY Branch AMLODIPINE 2022-0 Yes [id number] 5mg TAKE 1 U nivers 5 mg tablet 1-31 TABLET BY ity of 00:00: [facility] DAILY Medical Branch SPIRONOLACT 2022-0 Yes [id number] TAKE 1 [facility] ONE 25 mg 1-31 TABLET BY ity o f tablet 00:00: MOUTH TWICE Medical DAILY Branch FUROSEMIDE 2022-0 Yes TAKE 1 [facility] rs 80 mg 1-31 TABLET BY ity of tablet 00:00: [facility] TWICE Medical DAILY Branch AMLODIPINE 2022-0 Yes [id number] 5mg TAKE 1 U nivers 5 mg tablet 1-31 TABLET BY ity of 00:00: [facility] DAILY Medical Branch SPIRONOLACT 2022-0 Yes [id number] TAKE 1 [facility] ONE 25 mg 1-31 TABLET BY ity o f tablet 00:00: MOUTH [place] 00 TWICE Medical DAILY Branch FUROSEMIDE 2022-0 Yes TAKE 1 Unive rs 80 mg 1-31 TABLET BY ity of tablet 00:00: MOUTH [place] TWICE Medical DAILY Branch AMLODIPINE 2022-0 Yes [id number] 5mg TAKE 1 U nivers 5 mg tablet 1-31 TABLET BY ity of 00:00: [facility] DAILY Medical Branch SPIRONOLACT 2022-0 Yes [id number] TAKE 1 [facility] ONE 25 mg 1-31 TABLET BY ity o f tablet 00:00: [facility] TWICE Medical DAILY Branch FUROSEMIDE 2022-0 Yes TAKE 1 Unive rs 80 mg 1-31 TABLET BY ity of tablet 00:00: [facility] TWICE Medical DAILY Branch AMLODIPINE 2022-0 Yes [id number] 5mg TAKE 1 U nivers 5 mg tablet 1-31 TABLET BY ity of 00:00: [facility] DAILY Medical Branch SPIRONOLACT 2-0 Yes [id number] TAKE 1 [facility] ONE 25 mg 1-31 TABLET BY ity o f tablet 00:00: [facility] TWICE Medical DAILY Branch FUROSEMIDE 2022-0 Yes TAKE 1 Unive rs 80 mg 1-31 TABLET BY ity of tablet 00:00: [facility] TWICE Medical DAILY Branch AMLODIPINE 2-0 Yes [id number] 5mg TAKE 1 U nivers 5 mg tablet 1-31 TABLET BY ity of 00:00: [facility] DAILY Medical Branch SPIRONOLACT 2022-0 Yes [id number] TAKE 1 [facility] ONE 25 mg 1-31 TABLET BY ity o f tablet 00:00: [facility] TWICE Medical DAILY Branch FUROSEMIDE 2022-0 Yes TAKE 1 Unive rs 80 mg 1-31 TABLET BY ity of tablet 00:00: [facility] TWICE Medical DAILY Branch AMLODIPINE 2022-0 Yes [id number] 5mg TAKE 1 U nivers 5 mg tablet 1-31 TABLET BY ity of 00:00: [facility] DAILY Medical Branch SPIRONOLACT 2022-0 Yes [id number] TAKE 1 [facility] ONE 25 mg 1-31 TABLET BY ity o f tablet 00:00: [facility] TWICE Medical DAILY Branch FUROSEMIDE 2022-0 Yes TAKE 1 Unive rs 80 mg 1-31 TABLET BY ity of tablet 00:00: [facility] TWICE Medical DAILY Branch AMLODIPINE 2022-0 Yes [id number] 5mg TAKE 1 [facility] 5 mg tablet 1-31 TABLET BY ity of 00:00: MOUTH DAILY [facility] SPIRONOLACT 2022-0 Yes [id number] TAKE 1 [facility] ONE 25 mg 1-31 TABLET BY ity o f tablet 00:00: MOUTH TWICE Medical DAILY Branch FUROSEMIDE 2022-0 Yes TAKE 1 [facility] 80 mg 1-31 TABLET BY ity of tablet 00:00: MOUTH TWICE Medical DAILY Branch AMLODIPINE 2022-0 Yes [id number] 5mg TAKE 1 [facility] 5 mg tablet 1-31 TABLET BY ity of 00:00: MOUTH DAILY [facility] SPIRONOLACT 2022-0 Yes [id number] TAKE 1 [facility] ONE 25 mg 1-31 TABLET BY ity o f tablet 00:00: MOUTH TWICE Medical DAILY Branch FUROSEMIDE 2022-0 Yes TAKE 1 [facility] 80 mg 1-31 TABLET BY ity of tablet 00:00: MOUTH TWICE Medical DAILY Branch SPIRONOLACT 2022-0 Yes [id number] TAKE 1 [facility] ONE 25 mg 1-31 TABLET BY ity o f tablet 00:00: TWICE Medical DAILY Branch FUROSEMIDE 2022-0 Yes TAKE 1 [facility] 80 mg 1-31 TABLET BY ity of tablet 00:00: MOUTH TWICE Medical DAILY Branch SPIRONOLACT 2022-0 Yes [id number] TAKE 1 [facility] ONE 25 mg 1-31 TABLET BY ity o f tablet 00:00: MOUTH 00 TWICE Medical DAILY Branch FUROSEMIDE 2022-0 Yes TAKE 1 [facility] 80 mg 1-31 TABLET BY ity of tablet 00:00: TWICE Medical DAILY Branch SPIRONOLACT 2022-0 Yes [id number] TAKE 1 [facility] ONE 25 mg 1-31 TABLET BY ity o f tablet 00:00: MOUTH 00 TWICE Medical DAILY Branch FUROSEMIDE 2022-0 Yes TAKE 1 [facility] 80 mg 1-31 TABLET BY ity of tablet 00:00: MOUTH TWICE Medical DAILY Branch SPIRONOLACT 2022-0 Yes [id number] TAKE 1 [facility] ONE 25 mg 1-31 TABLET BY ity o f tablet 00:00: MOUTH 00 TWICE Medical DAILY Branch FUROSEMIDE 2022-0 Yes TAKE 1 [facility] 80 mg 1-31 TABLET BY ity of tablet 00:00: MOUTH TWICE Medical DAILY Branch SPIRONOLACT 2022-0 Yes [id number] TAKE 1 [facility] ONE 25 mg 1-31 TABLET BY ity o f tablet 00:00: MOUTH [place] 00 TWICE Medical DAILY Branch SPIRONOLACT 2022-0 Yes [id number] TAKE 1 [facility] ONE 25 mg 1-31 TABLET BY ity o f tablet 00:00: MOUTH [place] 00 TWICE Medical DAILY Branch SPIRONOLACT 2022-0 Yes [id number] TAKE 1 [facility] ONE 25 mg 1-31 TABLET BY ity o f tablet 00:00: MOUTH [place] 00 TWICE Medical DAILY Branch SPIRONOLACT 2022-0 Yes [id number] TAKE 1 [facility] ONE 25 mg 1-31 TABLET BY ity o f tablet 00:00: MOUTH [place] 00 TWICE Medical DAILY Branch SPIRONOLACT 2022-0 Yes [id number] TAKE 1 [facility] ONE 25 mg 1-31 TABLET BY ity o f tablet 00:00: MOUTH [place] 00 TWICE Medical DAILY Branch SPIRONOLACT 2022-0 Yes [id number] TAKE 1 [facility] ONE 25 mg 1-31 TABLET BY ity o f tablet 00:00: MOUTH [place] 00 TWICE Medical DAILY Branch SPIRONOLACT 2022-0 Yes [id number] TAKE 1 [facility] ONE 25 mg 1-31 TABLET BY ity o f tablet 00:00: MOUTH [place] 00 TWICE Medical DAILY Branch SPIRONOLACT 2022-0 Yes [id number] TAKE 1 [facility] ONE 25 mg 1-31 TABLET BY ity o f tablet 00:00: MOUTH [place] 00 TWICE Medical DAILY Branch SPIRONOLACT 2022-0 Yes [id number] TAKE 1 [facility] ONE 25 mg 1-31 TABLET BY ity o f tablet 00:00: MOUTH [place] 00 TWICE Medical DAILY Branch SPIRONOLACT 2022-0 Yes [id number] TAKE 1 [facility] ONE 25 mg 1-31 TABLET BY ity o f tablet 00:00: MOUTH [place] 00 TWICE Medical DAILY Branch SPIRONOLACT 2022-0 Yes [id number] TAKE 1 [facility] ONE 25 mg 1-31 TABLET BY ity o f tablet 00:00: MOUTH [place] 00 TWICE Medical DAILY Branch SPIRONOLACT 2022-0 Yes [id number] TAKE 1 [facility] ONE 25 mg 1-31 TABLET BY ity o f tablet 00:00: MOUTH [place] 00 TWICE Medical DAILY Branch SPIRONOLACT 2022-0 Yes [id number] TAKE 1 [facility] ONE 25 mg 1-31 TABLET BY ity o f tablet 00:00: MOUTH [place] 00 TWICE Medical DAILY Branch SPIRONOLACT 2022-0 Yes [id number] TAKE 1 [facility] ONE 25 mg 1-31 TABLET BY ity o f tablet 00:00: MOUTH [place] 00 TWICE Medical DAILY Branch SPIRONOLACT 2-0 Yes [id number] TAKE 1 [facility] ONE 25 mg 1-31 TABLET BY ity o f tablet 00:00: MOUTH [place] 00 TWICE Medical DAILY Branch SPIRONOLACT 2021-0 Yes [id number] TAKE 1 [facility] ONE 25 mg 1-31 TABLET BY ity o f tablet 00:00: MOUTH [place] 00 TWICE Medical DAILY Branch SPIRONOLACT 2021-0 Yes [id number] TAKE 1 [facility] ONE 25 mg 1-31 TABLET BY ity o f tablet 00:00: MOUTH [place] 00 TWICE Medical DAILY Branch SPIRONOLACT 2021-0 Yes [id number] TAKE 1 [facility] ONE 25 mg 1-31 TABLET BY ity o f tablet 00:00: MOUTH [place] 00 TWICE Medical DAILY Branch SPIRONOLACT 2021-0 Yes [id number] TAKE 1 [facility] ONE 25 mg 1-31 TABLET BY ity o f tablet 00:00: MOUTH [place] 00 TWICE Medical DAILY Branch SPIRONOLACT 2021-0 2- No [id number] TAKE 1 [facility] ONE 25 mg 1-31 12-08 TABLET BY ity of tablet 00:00: 00:00 [facility] 00 :00 TWICE Medical DAILY Branch SPIRONOLACT 2021-0 2021- No [id number] TAKE 1 [facility] ONE 25 mg 1-31 12-08 TABLET BY ity of tablet 00:00: 00:00 [facility] 00 :00 TWICE Medical DAILY Branch FUROSEMIDE 2-0 2022- No TAKE 1 [facility] ers 80 mg 1-31 - TABLET BY ity of tablet 00:00: 00:00 [facility] 00 :00 TWICE Medical DAILY Branch FUROSEMIDE 2022-0 2022- No TAKE 1 [facility] ers 80 mg 1-31 - TABLET BY ity of tablet 00:00: 00:00 [facility] 00 :00 TWICE Medical DAILY Branch FUROSEMIDE 2022-0 2022- No TAKE 1 [facility] ers 80 mg 1-31 - TABLET BY ity of tablet 00:00: 00:00 [facility] 00 :00 TWICE Medical DAILY Branch AMLODIPINE 2-0 2022- No [id number] 5mg TAKE 1 [facility] 5 mg tablet -02 06- TABLET BY it y of 00:00: 00:00 [facility] 00 :00 DAILY Medical Branch venlafaxine 2021-0 Yes [id number] TK 1 C PO [facility] XR 150 mg 1-13 QD ity of 24 hr 00:00: [place] capsule [facility] venlafaxine 2021-0 Yes [id number] TK 1 C PO [facility] XR 150 mg 1-13 QD ity of 24 hr 00:00: [place] capsule [facility] venlafaxine 2021-0 Yes [id number] TK 1 C PO [facility] XR 150 mg 1-13 QD ity of 24 hr 00:00: [place] capsule [facility] venlafaxine 2021-0 Yes [id number] TK 1 C PO [facility] XR 150 mg 1-13 QD ity of 24 hr 00:00: [place] capsule [facility] venlafaxine 2021-0 Yes [id number] TK 1 C PO [facility] XR 150 mg 1-13 QD ity of 24 hr 00:00: [place] capsule [facility] venlafaxine 2021-0 Yes [id number] TK 1 C PO [facility] XR 150 mg 1-13 QD ity of 24 hr 00:00: [place] capsule [facility] venlafaxine 2021-0 Yes [id number] TK 1 C PO [facility] XR 150 mg 1-13 QD ity of 24 hr 00:00: [place] capsule [facility] venlafaxine 2021-0 Yes [id number] TK 1 C PO [facility] XR 150 mg 1-13 QD ity of 24 hr 00:00: [place] capsule [facility] venlafaxine 2021-0 Yes [id number] TK 1 C PO [facility] XR 150 mg 1-13 QD ity of 24 hr 00:00: [place] capsule [facility] venlafaxine 2021-0 Yes [id number] TK 1 C PO [facility] XR 150 mg 1-13 QD ity of 24 hr 00:00: [place] [facility] venlafaxine 2021-0 Yes [id number] TK 1 C PO [facility] XR 150 mg 1-13 QD ity of 24 hr 00:00: [place] [facility] venlafaxine 2021-0 Yes [id number] TK 1 C PO [facility] XR 150 mg 1-13 QD ity of 24 hr 00:00: [place] [facility] venlafaxine 2021-0 Yes [id number] TK 1 C PO [facility] XR 150 mg 1-13 QD ity of 24 hr 00:00: [place] [facility] venlafaxine 2022-0 Yes [id number] TK 1 C PO [facility] XR 150 mg 1-13 QD ity of 24 hr 00:00: [place] [facility] venlafaxine 2021-0 Yes [id number] TK 1 C PO [facility] XR 150 mg 1-13 QD ity of 24 hr 00:00: [place] [facility] venlafaxine 2021-0 Yes [id number] TK 1 C PO [facility] XR 150 mg 1-13 QD ity of 24 hr 00:00: [place] [facility] venlafaxine 2021-0 Yes [id number] TK 1 C PO [facility] XR 150 mg 1-13 QD ity of 24 hr 00:00: [place] [facility] venlafaxine 2021-0 Yes [id number] TK 1 C PO [facility] XR 150 mg 1-13 QD ity of 24 hr 00:00: [place] [facility] venlafaxine 2021-0 Yes [id number] TK 1 C PO [facility] XR 150 mg 1-13 QD ity of 24 hr 00:00: [place] [facility] venlafaxine 2021-0 Yes [id number] TK 1 C PO [facility] XR 150 mg 1-13 QD ity of 24 hr 00:00: [place] [facility] venlafaxine 2021-0 Yes [id number] TK 1 C PO [facility] XR 150 mg 1-13 QD ity of 24 hr 00:00: [place] [facility] venlafaxine 2021-0 Yes [id number] TK 1 C PO [facility] XR 150 mg 1-13 QD ity of 24 hr 00:00: [place] [facility] venlafaxine 2021-0 Yes [id number] TK 1 C PO [facility] XR 150 mg 1-13 QD ity of 24 hr 00:00: [place] [facility] venlafaxine 2021-0 Yes [id number] TK 1 C PO [facility] XR 150 mg 1-13 QD ity of 24 hr 00:00: [place] [facility] venlafaxine 2021-0 Yes [id number] TK 1 C PO [facility] XR 150 mg 1-13 QD ity of 24 hr 00:00: [place] [facility] venlafaxine 2021-0 Yes [id number] TK 1 C PO [facility] XR 150 mg 1-13 QD ity of 24 hr 00:00: [place] [facility] venlafaxine 2021-0 Yes [id number] TK 1 C PO [facility] XR 150 mg 1-13 QD ity of 24 hr 00:00: [place] [facility] venlafaxine 2021-0 Yes [id number] TK 1 C PO [facility] XR 150 mg 1-13 QD ity of 24 hr 00:00: [place] [facility] venlafaxine 2021-0 Yes [id number] TK 1 C PO [facility] XR 150 mg 1-13 QD ity of 24 hr 00:00: [place] [facility] venlafaxine 2021-0 Yes [id number] TK 1 C PO [facility] XR 150 mg 1-13 QD ity of 24 hr 00:00: [place] [facility] venlafaxine 2021-0 Yes [id number] TK 1 C PO [facility] XR 150 mg 1-13 QD ity of 24 hr 00:00: [place] [facility] venlafaxine 2021-0 Yes [id number] TK 1 C PO [facility] XR 150 mg 1-13 QD ity of 24 hr 00:00: [place] [facility] venlafaxine 2021-0 Yes [id number] TK 1 C PO [facility] XR 150 mg 1-13 QD ity of 24 hr 00:00: [place] [facility] venlafaxine 2021-0 Yes [id number] TK 1 C PO [facility] XR 150 mg 1-13 QD ity of 24 hr 00:00: [place] [facility] venlafaxine 2021-0 Yes [id number] TK 1 C PO [facility] XR 150 mg 1-13 QD ity of 24 hr 00:00: [place] [facility] venlafaxine 2021-0 Yes [id number] TK 1 C PO [facility] XR 150 mg 1-13 QD ity of 24 hr 00:00: [place] [facility] venlafaxine 2021-0 Yes [id number] TK 1 C PO [facility] XR 150 mg 1-13 QD ity of 24 hr 00:00: [place] [facility] venlafaxine 2021-0 Yes [id number] TK 1 C PO [facility] XR 150 mg 1-13 QD ity of 24 hr 00:00: [place] [facility] venlafaxine 2021-0 Yes [id number] TK 1 C PO [facility] XR 150 mg 1-13 QD ity of 24 hr 00:00: [place] [facility] venlafaxine 2021-0 Yes [id number] TK 1 C PO [facility] XR 150 mg 1-13 QD ity of 24 hr 00:00: [place] [facility] venlafaxine 2021-0 Yes [id number] TK 1 C PO [facility] XR 150 mg 1-13 QD ity of 24 hr 00:00: [place] [facility] venlafaxine 2021-0 Yes [id number] TK 1 C PO [facility] XR 150 mg 1-13 QD ity of 24 hr 00:00: [place] [facility] venlafaxine 2021-0 Yes [id number] TK 1 C PO [facility] XR 150 mg 1-13 QD ity of 24 hr 00:00: [place] [facility] venlafaxine 2021-0 Yes [id number] TK 1 C PO [facility] XR 150 mg 1-13 QD ity of 24 hr 00:00: [place] [facility] venlafaxine 2021-0 Yes [id number] TK 1 C PO [facility] XR 150 mg 1-13 QD ity of 24 hr 00:00: [place] [facility] venlafaxine 2021-0 Yes [id number] TK 1 C PO [facility] XR 150 mg 1-13 QD ity of 24 hr 00:00: [place] [facility] venlafaxine 2021-0 Yes [id number] TK 1 C PO [facility] XR 150 mg 1-13 QD ity of 24 hr 00:00: [place] [facility] venlafaxine 2021-0 Yes [id number] TK 1 C PO [facility] XR 150 mg 1-13 QD ity of 24 hr 00:00: [place] [facility] venlafaxine 2021-0 Yes [id number] TK 1 C PO [facility] XR 150 mg 1-13 QD ity of 24 hr 00:00: [place] [facility] venlafaxine 2021-0 Yes [id number] TK 1 C PO [facility] XR 150 mg 1-13 QD ity of 24 hr 00:00: [place] [facility] venlafaxine 2021-0 Yes [id number] TK 1 C PO [facility] XR 150 mg 1-13 QD ity of 24 hr 00:00: [place] [facility] venlafaxine 2021-0 Yes [id number] TK 1 C PO [facility] XR 150 mg 1-13 QD ity of 24 hr 00:00: [place] [facility] venlafaxine 2021-0 Yes [id number] TK 1 C PO [facility] XR 150 mg 1-13 QD ity of 24 hr 00:00: [place] [facility] venlafaxine 2021-0 Yes [id number] TK 1 C PO [facility] XR 150 mg 1-13 QD ity of 24 hr 00:00: [place] [facility] venlafaxine 2021-0 Yes [id number] TK 1 C PO [facility] XR 150 mg 1-13 QD ity of 24 hr 00:00: [place] [facility] venlafaxine 2021-0 Yes [id number] TK 1 C PO [facility] XR 150 mg 1-13 QD ity of 24 hr 00:00: [place] [facility] venlafaxine 2021-0 Yes [id number] TK 1 C PO [facility] XR 150 mg 1-13 QD ity of 24 hr 00:00: [place] [facility] venlafaxine 2021-0 Yes [id number] TK 1 C PO [facility] XR 150 mg 1-13 QD ity of 24 hr 00:00: [place] [facility] venlafaxine 2021-0 Yes [id number] TK 1 C PO [facility] XR 150 mg 1-13 QD ity of 24 hr 00:00: [place] [facility] venlafaxine 2021-0 Yes [id number] TK 1 C PO [facility] XR 150 mg 1-13 QD ity of 24 hr 00:00: [place] [facility] venlafaxine 2021-0 Yes [id number] TK 1 C PO [facility] XR 150 mg 1-13 QD ity of 24 hr 00:00: [place] [facility] venlafaxine 2021-0 Yes [id number] TK 1 C PO [facility] XR 150 mg 1-13 QD ity of 24 hr 00:00: [place] [facility] venlafaxine 2021-0 Yes [id number] TK 1 C PO [facility] XR 150 mg 1-13 QD ity of 24 hr 00:00: [place] [facility] venlafaxine 2-0 Yes [id number] TK 1 C PO [facility] XR 150 mg 1-13 QD ity of 24 hr 00:00: [place] [facility] venlafaxine 2021-0 Yes [id number] TK 1 C PO [facility] XR 150 mg 1-13 QD ity of 24 hr 00:00: [place] [facility] venlafaxine 2-0 Yes [id number] TK 1 C PO [facility] XR 150 mg 1-13 QD ity of 24 hr 00:00: [place] [facility] venlafaxine 0 Yes [id number] TK 1 C PO [facility] XR 150 mg 1-13 QD ity of 24 hr 00:00: [place] [facility] venlafaxine 0 Yes [id number] TK 1 C PO [facility] XR 150 mg 1-13 QD ity of 24 hr 00:00: [place] [facility] venlafaxine 0 Yes [id number] TK 1 C PO [facility] XR 150 mg 1-13 QD ity of 24 hr 00:00: [place] [facility] venlafaxine 0 Yes [id number] TK 1 C PO [facility] XR 150 mg 1-13 QD ity of 24 hr 00:00: [place] [facility] venlafaxine Yes [id number] TK 1 C PO [facility] XR 150 mg 1-13 QD ity of 24 hr 00:00: [place] [facility] venlafaxine Yes [id number] TK 1 C PO [facility] XR 150 [...] Medical OIL) 1,000 Branch mg capsule Methylcellu Yes [id number] 1{scoop Take 1 Univers lose, with 9-23 } Scoop by ity o f Sugar, 00:00: mouth [place] ([facility], 00 daily. Medical SUCROSE,) Mixed with Bran ch powder water Methylcellu Yes [id number] 1{scoop Take 1 Univers lose, with 9-23 } Scoop by ity o f Sugar, 00:00: mouth [place] ([employer], 00 daily. Medical SUCROSE,) Mixed with Bran ch powder water Methylcellu 2021-0 Yes [id number] 1{scoop Take 1 Univers lose, with 9-23 } Scoop by ity o f Sugar, 00:00: mouth [place] ([employer], 00 daily. Medical SUCROSE,) Mixed with Bran ch powder water Methylcellu 2021-0 Yes [id number] 1{scoop Take 1 Univers lose, with 9-23 } Scoop by ity o f Sugar, 00:00: mouth [place] ([employer], 00 daily. Medical SUCROSE,) Mixed with Bran ch powder water Methylcellu 2021-0 Yes [id number] 1{scoop Take 1 Univers lose, with 9-23 } Scoop by ity o f Sugar, 00:00: mouth [place] ([employer], 00 daily. Medical SUCROSE,) Mixed with Bran ch powder water Methylcellu 2021-0 Yes [id number] 1{scoop Take 1 Univers lose, with 9-23 } Scoop by ity o f Sugar, 00:00: mouth [place] ([employer], 00 daily. Medical SUCROSE,) Mixed with Bran ch powder water Methylcellu 2021-0 Yes [id number] 1{scoop Take 1 Univers lose, with 9-23 } Scoop by ity o f Sugar, 00:00: mouth [place] ([employer], 00 daily. Medical SUCROSE,) Mixed with Bran ch powder water Methylcellu 2021-0 Yes [id number] 1{scoop Take 1 Univers lose, with 9-23 } Scoop by ity o f Sugar, 00:00: mouth [place] ([employer], 00 daily. Medical SUCROSE,) Mixed with Bran ch powder water Methylcellu 2021-0 Yes [id number] 1{scoop Take 1 Univers lose, with 9-23 } Scoop by ity o f Sugar, 00:00: mouth [place] ([facility], 00 daily. Medical SUCROSE,) Mixed with Bran ch powder water Methylcellu 2021-0 Yes [id number] 1{scoop Take 1 Univers lose, with 9-23 } Scoop by ity o f Sugar, 00:00: mouth [place] ([employer], 00 daily. Medical SUCROSE,) Mixed with Bran ch powder water Methylcellu 2021-0 Yes [id number] 1{scoop Take 1 Univers lose, with 9-23 } Scoop by ity o f Sugar, 00:00: mouth [place] ([facility], 00 daily. Medical SUCROSE,) Mixed with Bran ch powder water Methylcellu 2021-0 Yes [id number] 1{scoop Take 1 Univers lose, with 9-23 } Scoop by ity o f Sugar, 00:00: mouth [place] ([employer], 00 daily. Medical SUCROSE,) Mixed with Bran ch powder water Methylcellu 2021-0 Yes [id number] 1{scoop Take 1 Univers lose, with 9-23 } Scoop by ity o f Sugar, 00:00: mouth [place] ([facility], 00 daily. Medical SUCROSE,) Mixed with Bran ch powder water Methylcellu 2021-0 Yes [id number] 1{scoop Take 1 Univers lose, with 9-23 } Scoop by ity o f Sugar, 00:00: mouth [place] ([facility], 00 daily. Medical SUCROSE,) Mixed with Bran ch powder water Methylcellu 2021-0 Yes [id number] 1{scoop Take 1 Univers lose, with 9-23 } Scoop by ity o f Sugar, 00:00: mouth [place] ([facility], 00 daily. Medical SUCROSE,) Mixed with Bran ch powder water Methylcellu 2021-0 Yes [id number] 1{scoop Take 1 Univers lose, with 9-23 } Scoop by ity o f Sugar, 00:00: mouth [place] ([facility], 00 daily. Medical SUCROSE,) Mixed with Bran ch powder water Methylcellu 2021-0 Yes [id number] 1{scoop Take 1 Univers lose, with 9-23 } Scoop by ity o f Sugar, 00:00: mouth [place] ([facility], 00 daily. Medical SUCROSE,) Mixed with Bran ch powder water Methylcellu 2021-0 Yes [id number] 1{scoop Take 1 Univers lose, with 9-23 } Scoop by ity o f Sugar, 00:00: mouth [place] ([facility], 00 daily. Medical SUCROSE,) Mixed with Bran ch powder water Methylcellu 2021-0 Yes [id number] 1{scoop Take 1 Univers lose, with 9-23 } Scoop by ity o f Sugar, 00:00: mouth [place] ([facility], 00 daily. Medical SUCROSE,) Mixed with Bran ch powder water Methylcellu 2021-0 Yes [id number] 1{scoop Take 1 Univers lose, with 9-23 } Scoop by ity o f Sugar, 00:00: mouth [place] ([facility], 00 daily. Medical SUCROSE,) Mixed with Bran ch powder water Methylcellu 2021-0 Yes [id number] 1{scoop Take 1 Univers lose, with 9-23 } Scoop by ity o f Sugar, 00:00: mouth [place] ([facility], 00 daily. Medical SUCROSE,) Mixed with Bran ch powder water Methylcellu 2021-0 Yes [id number] 1{scoop Take 1 Univers lose, with 9-23 } Scoop by ity o f Sugar, 00:00: mouth [place] ([facility], 00 daily. Medical SUCROSE,) Mixed with Bran ch powder water Methylcellu 2021-0 Yes [id number] 1{scoop Take 1 Univers lose, with 9-23 } Scoop by ity o f Sugar, 00:00: mouth [place] ([facility], 00 daily. Medical SUCROSE,) Mixed with Bran ch powder water Methylcellu 2021-0 Yes [id number] 1{scoop Take 1 Univers lose, with 9-23 } Scoop by ity o f Sugar, 00:00: mouth [place] ([facility], 00 daily. Medical SUCROSE,) Mixed with Bran ch powder water Methylcellu 2021-0 Yes [id number] 1{scoop Take 1 Univers lose, with 9-23 } Scoop by ity o f Sugar, 00:00: mouth [place] ([facility], 00 daily. Medical SUCROSE,) Mixed with Bran ch powder water Methylcellu 2021-0 Yes [id number] 1{scoop Take 1 Univers lose, with 9-23 } Scoop by ity o f Sugar, 00:00: mouth [place] ([facility], 00 daily. Medical SUCROSE,) Mixed with Bran ch powder water Methylcellu 2021-0 Yes [id number] 1{scoop Take 1 Univers lose, with 9-23 } Scoop by ity o f Sugar, 00:00: mouth [place] ([employer], 00 daily. Medical SUCROSE,) Mixed with Bran ch powder water Methylcellu 1-0 Yes [id number] 1{scoop Take 1 Univers lose, with 9-23 } Scoop by ity o f Sugar, 00:00: mouth [place] ([employer], 00 daily. Medical SUCROSE,) Mixed with Bran ch powder water Methylcellu 1-0 Yes [id number] 1{scoop Take 1 Univers lose, with 9-23 } Scoop by ity o f Sugar, 00:00: mouth [place] ([employer], 00 daily. Medical SUCROSE,) Mixed with Bran ch powder water Methylcellu 1-0 Yes [id number] 1{scoop Take 1 Univers lose, with 9-23 } Scoop by ity o f Sugar, 00:00: mouth [place] ([employer], 00 daily. Medical SUCROSE,) Mixed with Bran ch powder water Methylcellu 1-0 Yes [id number] 1{scoop Take 1 Univers lose, with 9-23 } Scoop by ity o f Sugar, 00:00: mouth [place] ([employer], 00 daily. Medical SUCROSE,) Mixed with Bran ch powder water Methylcellu 1-0 Yes [id number] 1{scoop Take 1 Univers lose, with 9-23 } Scoop by ity o f Sugar, 00:00: mouth [place] ([employer], 00 daily. Medical SUCROSE,) Mixed with Bran ch powder water Methylcellu 1-0 Yes [id number] 1{scoop Take 1 Univers lose, with 9-23 } Scoop by ity o f Sugar, 00:00: mouth [place] ([employer], 00 daily. Medical SUCROSE,) Mixed with Bran ch powder water Methylcellu 2021-0 Yes [id number] 1{scoop Take 1 Univers lose, with 9-23 } Scoop by ity o f Sugar, 00:00: mouth [place] ([employer], 00 daily. Medical SUCROSE,) Mixed with Bran ch powder water Methylcellu 2021-0 Yes [id number] 1{scoop Take 1 Univers lose, with 9-23 } Scoop by ity o f Sugar, 00:00: mouth [place] ([employer], 00 daily. Medical SUCROSE,) Mixed with Bran ch powder water Methylcellu 2021-0 Yes [id number] 1{scoop Take 1 Univers lose, with 9-23 } Scoop by ity o f Sugar, 00:00: mouth [place] ([facility], 00 daily. Medical SUCROSE,) Mixed with Bran ch powder water Methylcellu 2021-0 Yes [id number] 1{scoop Take 1 Univers lose, with 9-23 } Scoop by ity o f Sugar, 00:00: mouth [place] ([facility], 00 daily. Medical SUCROSE,) Mixed with Bran ch powder water Methylcellu 2021-0 Yes [id number] 1{scoop Take 1 Univers lose, with 9-23 } Scoop by ity o f Sugar, 00:00: mouth [place] ([facility], 00 daily. Medical SUCROSE,) Mixed with Bran ch powder water Methylcellu 2021-0 Yes [id number] 1{scoop Take 1 Univers lose, with 9-23 } Scoop by ity o f Sugar, 00:00: mouth [place] ([facility], 00 daily. Medical SUCROSE,) Mixed with Bran ch powder water Methylcellu 2021-0 Yes [id number] 1{scoop Take 1 Univers lose, with 9-23 } Scoop by ity o f Sugar, 00:00: mouth [place] ([facility], 00 daily. Medical SUCROSE,) Mixed with Bran ch powder water Methylcellu 2021-0 Yes [id number] 1{scoop Take 1 Univers lose, with 9-23 } Scoop by ity o f Sugar, 00:00: mouth [place] ([facility], 00 daily. Medical SUCROSE,) Mixed with Bran ch powder water Methylcellu 2021-0 Yes [id number] 1{scoop Take 1 Univers lose, with 9-23 } Scoop by ity o f Sugar, 00:00: mouth [place] ([employer], 00 daily. Medical SUCROSE,) Mixed with Bran ch powder water Methylcellu 2021-0 Yes [id number] 1{scoop Take 1 Univers lose, with 9-23 } Scoop by ity o f Sugar, 00:00: mouth [place] ([employer], 00 daily. Medical SUCROSE,) Mixed with Bran ch powder water Methylcellu 2021-0 Yes [id number] 1{scoop Take 1 Univers lose, with 9-23 } Scoop by ity o f Sugar, 00:00: mouth [place] ([employer], 00 daily. Medical SUCROSE,) Mixed with Bran ch powder water Methylcellu 2021-0 Yes [id number] 1{scoop Take 1 Univers lose, with 9-23 } Scoop by ity o f Sugar, 00:00: mouth [place] ([employer], 00 daily. Medical SUCROSE,) Mixed with Bran ch powder water Methylcellu 2021-0 Yes [id number] 1{scoop Take 1 Univers lose, with 9-23 } Scoop by ity o f Sugar, 00:00: mouth [place] ([employer], 00 daily. Medical SUCROSE,) Mixed with Bran ch powder water Methylcellu 2021-0 Yes [id number] 1{scoop Take 1 Univers lose, with 9-23 } Scoop by ity o f Sugar, 00:00: mouth [place] ([employer], 00 daily. Medical SUCROSE,) Mixed with Bran ch powder water Methylcellu 2021-0 Yes [id number] 1{scoop Take 1 Univers lose, with 9-23 } Scoop by ity o f Sugar, 00:00: mouth [place] ([employer], 00 daily. Medical SUCROSE,) Mixed with Bran ch powder water Methylcellu 2021-0 Yes [id number] 1{scoop Take 1 Univers lose, with 9-23 } Scoop by ity o f Sugar, 00:00: mouth [place] ([employer], 00 daily. Medical SUCROSE,) Mixed with Bran ch powder water Methylcellu 2021-0 Yes [id number] 1{scoop Take 1 Univers lose, with 9-23 } Scoop by ity o f Sugar, 00:00: mouth [place] ([employer], 00 daily. Medical SUCROSE,) Mixed with Bran ch powder water Methylcellu 2021-0 Yes [id number] 1{scoop Take 1 Univers lose, with 9-23 } Scoop by ity o f Sugar, 00:00: mouth [place] ([employer], 00 daily. Medical SUCROSE,) Mixed with Bran ch powder water Methylcellu 2021-0 Yes [id number] 1{scoop Take 1 Univers lose, with 9-23 } Scoop by ity o f Sugar, 00:00: mouth [place] ([employer], 00 daily. Medical SUCROSE,) Mixed with Bran ch powder water Methylcellu 2021-0 Yes [id number] 1{scoop Take 1 Univers lose, with 9-23 } Scoop by ity o f Sugar, 00:00: mouth [place] ([employer], 00 daily. Medical SUCROSE,) Mixed with Bran ch powder water Methylcellu 2021-0 Yes [id number] 1{scoop Take 1 Univers lose, with 9-23 } Scoop by ity o f Sugar, 00:00: mouth [place] ([employer], 00 daily. Medical SUCROSE,) Mixed with Bran ch powder water Methylcellu 2021-0 Yes [id number] 1{scoop Take 1 Univers lose, with 9-23 } Scoop by ity o f Sugar, 00:00: mouth [place] ([employer], 00 daily. Medical SUCROSE,) Mixed with Bran ch powder water Methylcellu 2021-0 Yes [id number] 1{scoop Take 1 Univers lose, with 9-23 } Scoop by ity o f Sugar, 00:00: mouth [place] ([employer], 00 daily. Medical SUCROSE,) Mixed with Bran ch powder water Methylcellu 2021-0 Yes [id number] 1{scoop Take 1 [facility] lose, with 9-23 } Scoop by ity o f Sugar, 00:00: mouth [place] (CITRUCEL, 00 daily. Medical SUCROSE,) Mixed with Bran ch powder water Methylcellu 2021-0 Yes [id number] 1{scoop Take 1 [facility] lose, with 9-23 } Scoop by ity o f Sugar, 00:00: mouth [place] (CITRUCEL, 00 daily. Medical SUCROSE,) Mixed with Bran ch powder water Methylcellu 2021-0 Yes [id number] 1{scoop Take 1 [facility] lose, with 9-23 } Scoop by ity o f Sugar, 00:00: mouth [place] (CITRUCEL, 00 daily. Medical SUCROSE,) Mixed with Bran ch powder water Methylcellu 2021-0 Yes [id number] 1{scoop Take 1 [facility] lose, with 9-23 } Scoop by ity o f Sugar, 00:00: mouth [place] (CITRUCEL, 00 daily. Medical SUCROSE,) Mixed with Bran ch powder water Methylcellu 2021-0 Yes [id number] 1{scoop Take 1 [facility] lose, with 9-23 } Scoop by ity o f Sugar, 00:00: mouth [place] (CITRUCEL, 00 daily. Medical SUCROSE,) Mixed with Bran ch powder water Methylcellu 2021-0 Yes [id number] 1{scoop Take 1 [facility] lose, with 9-23 } Scoop by ity o f Sugar, 00:00: mouth [place] (CITRUCEL, 00 daily. Medical SUCROSE,) Mixed with Bran ch powder water Methylcellu 2021-0 Yes [id number] 1{scoop Take 1 [facility] lose, with 9-23 } Scoop by ity o f Sugar, 00:00: mouth [place] (CITRUCEL, 00 daily. Medical SUCROSE,) Mixed with Bran ch powder water Methylcellu 2021-0 Yes [id number] 1{scoop Take 1 [facility] lose, with 9-23 } Scoop by ity o f Sugar, 00:00: mouth [place] (CITRUCEL, 00 daily. Medical SUCROSE,) Mixed with Bran ch powder water Methylcellu 2021-0 Yes [id number] 1{scoop Take 1 [facility] lose, with 9-23 } Scoop by ity o f Sugar, 00:00: mouth [place] (CITRUCEL, 00 daily. Medical SUCROSE,) Mixed with Bran ch powder water Methylcellu 2021-0 Yes [id number] 1{scoop Take 1 [facility] lose, with 9-23 } Scoop by ity o f Sugar, 00:00: mouth [place] (CITRUCEL, 00 daily. Medical SUCROSE,) Mixed with Bran ch powder water Methylcellu 2021-0 Yes [id number] 1{scoop Take 1 [facility] lose, with 9-23 } Scoop by ity o f Sugar, 00:00: mouth [place] (CITRUCEL, 00 daily. Medical SUCROSE,) Mixed with Bran ch powder water Methylcellu 2021-0 Yes [id number] 1{scoop Take 1 [facility] lose, with 9-23 } Scoop by ity o f Sugar, 00:00: mouth [place] (CITRUCEL, 00 daily. Medical SUCROSE,) Mixed with Bran ch powder water Methylcellu 2020-0 Yes [id number] 1{scoop Take 1 [facility] lose, with 9-23 } Scoop by ity o f Sugar, 00:00: mouth [place] (CITRUCEL, 00 daily. Medical SUCROSE,) Mixed with Bran ch powder water Methylcellu 2020-0 Yes [id number] 1{scoop Take 1 [facility] lose, with 9-23 } Scoop by ity o f Sugar, 00:00: mouth [place] (CITRUCEL, 00 daily. Medical SUCROSE,) Mixed with Bran ch powder water Methylcellu 2020-0 Yes [id number] 1{scoop Take 1 [facility] lose, with 9-23 } Scoop by ity o f Sugar, 00:00: mouth [place] (CITRUCEL, 00 daily. Medical SUCROSE,) Mixed with Bran ch powder water Methylcellu 2020-0 Yes [id number] 1{scoop Take 1 [facility] lose, with 9-23 } Scoop by ity o f Sugar, 00:00: mouth [place] (CITRUCEL, 00 daily. Medical SUCROSE,) Mixed with Bran ch powder water chlorhexidi 2020-0 Yes [id number] Apply to [facility] 4 % 9-22 area(s) ity of external 00:00: once daily [facility] liquid 00 as needed Medical for Wound Branch care. chlorhexidi 2020-0 Yes [id number] Apply to [facility] ne 4 % 9-22 area(s) ity of external 00:00: once daily [facility] liquid 00 as needed Medical for Wound Branch care. chlorhexidi 2020-0 Yes [id number] Apply to [facility] ne 4 % 9-22 area(s) ity of external 00:00: once daily [facility] liquid 00 as needed Medical for Wound Branch care. chlorhexidi 2020-0 Yes [id number] Apply to [facility] ne 4 % 9-22 area(s) ity of external 00:00: once daily [facility] liquid 00 as needed Medical for Wound Branch care. chlorhexidi 1-0 Yes [id number] Apply to [facility] ne 4 % 9-22 area(s) ity of external 00:00: once daily [facility] liquid 00 as needed Medical for Wound Branch care. chlorhexidi 2020-0 Yes [id number] Apply to [facility] [place] ne 4 % 9-22 area(s) ity of external 00:00: once daily [facility] as liquid 00 as needed Medical for Wound Branch care. chlorhexidi 0 Yes [id number] Apply to [facility] [place] ne 4 % 9-22 area(s) ity of external 00:00: once daily [facility] as liquid 00 as needed Medical for Wound Branch care. chlorhexidi 0 Yes [id number] Apply to [facility] [place] ne 4 % 9-22 area(s) ity of external 00:00: once daily [facility] liquid 00 as needed Medical for Wound Branch care. chlorhexidi 0 Yes [id number] Apply to [facility] [place] ne 4 % 9-22 area(s) ity of external 00:00: once daily [facility] as liquid 00 as needed Medical for Wound Branch care. chlorhexidi 0 Yes [id number] Apply to [facility] [place] ne 4 % 9-22 area(s) ity of external 00:00: once daily [facility] as liquid 00 as needed Medical for Wound Branch care. chlorhexidi 0 Yes [id number] Apply to [facility] [place] ne 4 % 9-22 area(s) ity of external 00:00: once daily [facility] as liquid 00 as needed Medical for Wound Branch care. chlorhexidi 0 Yes [id number] Apply to [facility] [place] ne 4 % 9-22 area(s) ity of external 00:00: once daily [facility] liquid 00 as needed Medical for Wound Branch care. chlorhexidi 2020-0 Yes [id number] Apply to [facility] [place] ne 4 % 9-22 area(s) ity of external 00:00: once daily [facility] as liquid 00 as needed Medical for Wound Branch care. chlorhexidi 2020-0 Yes [id number] Apply to [facility] [place] ne 4 % 9-22 area(s) ity of external 00:00: once daily [facility] as liquid 00 as needed Medical for Wound Branch care. chlorhexidi 2020-0 Yes [id number] Apply to [facility] [place] ne 4 % 9-22 area(s) ity of external 00:00: once daily [facility] liquid 00 as needed Medical for Wound Branch care. chlorhexidi 0 Yes [id number] Apply to [facility] [place] ne 4 % 9-22 area(s) ity of external 00:00: once daily [facility] as liquid 00 as needed Medical for Wound Branch care. chlorhexidi 0 Yes [id number] Apply to [facility] [place] ne 4 % 9-22 area(s) ity of external 00:00: once daily [facility] as liquid 00 as needed Medical for Wound Branch care. chlorhexidi 0 Yes [id number] Apply to [facility] [place] ne 4 % 9-22 area(s) ity of external 00:00: once daily [facility] as liquid 00 as needed Medical for Wound Branch care. chlorhexidi 0 Yes [id number] Apply to [facility] [place] ne 4 % 9-22 area(s) ity of external 00:00: once daily [facility] as liquid 00 as needed Medical for Wound Branch care. chlorhexidi 0 Yes [id number] Apply to [facility] [place] ne 4 % 9-22 area(s) ity of external 00:00: once daily [facility] as liquid 00 as needed Medical for Wound Branch care. chlorhexidi 0 Yes [id number] Apply to [facility] [place] ne 4 % 9-22 area(s) ity of external 00:00: once daily [facility] as liquid 00 as needed Medical for Wound Branch care. chlorhexidi 0 Yes [id number] Apply to [facility] [place] ne 4 % 9-22 area(s) ity of external 00:00: once daily [facility] liquid 00 as needed Medical for Wound Branch care. chlorhexidi 0 Yes [id number] Apply to [facility] [place] ne 4 % 9-22 area(s) ity of external 00:00: once daily [facility] as liquid 00 as needed Medical for Wound Branch care. chlorhexidi 0 Yes [id number] Apply to [facility] [place] ne 4 % 9-22 area(s) ity of external 00:00: once daily [facility] as liquid 00 as needed Medical for Wound Branch care. chlorhexidi 2020-0 Yes [id number] Apply to [facility] [place] ne 4 % 9-22 area(s) ity of external 00:00: once daily [facility] liquid 00 as needed Medical for Wound Branch care. chlorhexidi 0 Yes [id number] Apply to [facility] [place] ne 4 % 9-22 area(s) ity of external 00:00: once daily [facility] liquid 00 as needed Medical for Wound Branch care. chlorhexidi 0 Yes [id number] Apply to [facility] ne 4 % 9-22 area(s) ity of external 00:00: once daily [facility] liquid 00 as needed Medical for Wound Branch care. chlorhexidi 0 Yes [id number] Apply to [facility] ne 4 % 9-22 area(s) ity of external 00:00: once daily [facility] liquid 00 as needed Medical for Wound Branch care. chlorhexidi 0 Yes [id number] Apply to [facility] ne 4 % 9-22 area(s) ity of external 00:00: once daily [facility] liquid 00 as needed Medical for Wound Branch care. chlorhexidi 0 Yes [id number] Apply to [facility] ne 4 % 9-22 area(s) ity of external 00:00: once daily [facility] as liquid 00 as needed Medical for Wound Branch care. chlorhexidi 0 Yes [id number] Apply to [facility] ne 4 % 9-22 area(s) ity of external 00:00: once daily [facility] as liquid 00 as needed Medical for Wound Branch care. chlorhexidi 0 Yes [id number] Apply to [facility] ne 4 % 9-22 area(s) ity of external 00:00: once daily [facility] as liquid 00 as needed Medical for Wound Branch care. chlorhexidi 0 Yes [id number] Apply to [facility] ne 4 % 9-22 area(s) ity of external 00:00: once daily [facility] liquid 00 as needed Medical for Wound Branch care. chlorhexidi 0 Yes [id number] Apply to [facility] ne 4 % 9-22 area(s) ity of external 00:00: once daily [facility] as liquid 00 as needed Medical for Wound Branch care. chlorhexidi 0 Yes [id number] Apply to [facility] [place] ne 4 % 9-22 area(s) ity of external 00:00: once daily [facility] as liquid 00 as needed Medical for Wound Branch care. chlorhexidi 2020-0 Yes [id number] Apply to [facility] [place] ne 4 % 9-22 area(s) ity of external 00:00: once daily [facility] as liquid 00 as needed Medical for Wound Branch care. chlorhexidi 2020-0 Yes [id number] Apply to [facility] ne 4 % 9-22 area(s) ity of external 00:00: once daily [facility] liquid 00 as needed Medical for Wound Branch care. chlorhexidi Yes [id number] Apply to [facility] ne 4 % 9-22 area(s) ity of external 00:00: once daily [facility] as liquid 00 as needed Medical for Wound Branch care. chlorhexidi Yes [id number] Apply to [facility] ne 4 % 9-22 area(s) ity of external 00:00: once daily [facility] liquid 00 as needed Medical for Wound Branch care. chlorhexidi Yes [id number] Apply to [facility] ne 4 % 9-22 area(s) ity of external 00:00: once daily [facility] liquid 00 as needed Medical for Wound Branch care. chlorhexidi Yes [id number] Apply to [facility] ne 4 % 9-22 area(s) ity of external 00:00: once daily [facility] as liquid 00 as needed Medical for Wound Branch care. chlorhexidi Yes [id number] Apply to [facility] ne 4 % 9-22 area(s) ity of external 00:00: once daily [facility] as liquid 00 as needed Medical for Wound Branch care. chlorhexidi Yes [id number] Apply to [facility] ne 4 % 9-22 area(s) ity of external 00:00: once daily [facility] liquid 00 as needed Medical for Wound Branch care. chlorhexidi Yes [id number] Apply to [facility] ne 4 % 9-22 area(s) ity of external 00:00: once daily [facility] liquid 00 as needed Medical for Wound Branch care. chlorhexidi Yes [id number] Apply to [facility] ne 4 % 9-22 area(s) ity of external 00:00: once daily [facility] liquid 00 as needed Medical for Wound Branch care. chlorhexidi 0 Yes [id number] Apply to [facility] ne 4 % 9-22 area(s) ity of external 00:00: once daily [facility] liquid 00 as needed Medical for Wound Branch care. chlorhexidi Yes [id number] Apply to [facility] ne 4 % 9-22 area(s) ity of external 00:00: once daily [facility] as liquid 00 as needed Medical for Wound Branch care. chlorhexidi 0 Yes [id number] Apply to [facility] ne 4 % 9-22 area(s) ity of external 00:00: once daily [facility] liquid 00 as needed Medical for Wound Branch care. chlorhexidi 0 Yes [id number] Apply to [facility] ne 4 % 9-22 area(s) ity of external 00:00: once daily [facility] as liquid 00 as needed Medical for Wound Branch care. chlorhexidi 0 Yes [id number] Apply to [facility] ne 4 % 9-22 area(s) ity of external 00:00: once daily [facility] liquid 00 as needed Medical for Wound Branch care. chlorhexidi 0 Yes [id number] Apply to [facility] ne 4 % 9-22 area(s) ity of external 00:00: once daily [facility] as liquid 00 as needed Medical for Wound Branch care. chlorhexidi 0 Yes [id number] Apply to [facility] ne 4 % 9-22 area(s) ity of external 00:00: once daily [facility] as liquid 00 as needed Medical for Wound Branch care. chlorhexidi 0 Yes [id number] Apply to [facility] ne 4 % 9-22 area(s) ity of external 00:00: once daily [facility] as liquid 00 as needed Medical for Wound Branch care. chlorhexidi 0 Yes [id number] Apply to [facility] ne 4 % 9-22 area(s) ity of external 00:00: once daily [facility] as liquid 00 as needed Medical for Wound Branch care. chlorhexidi 0 Yes [id number] Apply to [facility] [place] ne 4 % 9-22 area(s) ity of external 00:00: once daily [facility] as liquid 00 as needed Medical for Wound Branch care. chlorhexidi 0 Yes [id number] Apply to [facility] [place] ne 4 % 9-22 area(s) ity of external 00:00: once daily [facility] as liquid 00 as needed Medical for Wound Branch care. chlorhexidi 0 Yes [id number] Apply to [facility] ne 4 % 9-22 area(s) ity of external 00:00: once daily [facility] as liquid 00 as needed Medical for Wound Branch care. chlorhexidi 0 Yes [id number] Apply to [facility] ne 4 % 9-22 area(s) ity of external 00:00: once daily [facility] as liquid 00 as needed Medical for Wound Branch care. chlorhexidi 0 Yes [id number] Apply to [facility] ne 4 % 9-22 area(s) ity of external 00:00: once daily [facility] as liquid 00 as needed Medical for Wound Branch care. chlorhexidi 0 Yes [id number] Apply to [facility] ne 4 % 9-22 area(s) ity of external 00:00: once daily [facility] as liquid 00 as needed Medical for Wound Branch care. chlorhexidi 0 Yes [id number] Apply to [facility] ne 4 % 9-22 area(s) ity of external 00:00: once daily [facility] as liquid 00 as needed Medical for Wound Branch care. chlorhexidi 0 Yes [id number] Apply to [facility] ne 4 % 9-22 area(s) ity of external 00:00: once daily [facility] as liquid 00 as needed Medical for Wound Branch care. chlorhexidi 0 Yes [id number] Apply to [facility] ne 4 % 9-22 area(s) ity of external 00:00: once daily [facility] as liquid 00 as needed Medical for Wound Branch care. chlorhexidi 0 Yes [id number] Apply to [facility] [place] ne 4 % 9-22 area(s) ity of external 00:00: once daily [facility] as liquid 00 as needed Medical for Wound Branch care. chlorhexidi 0 Yes [id number] Apply to [facility] ne 4 % 9-22 area(s) ity of external 00:00: once daily [facility] as liquid 00 as needed Medical for Wound Branch care. chlorhexidi 0 Yes [id number] Apply to [facility] ne 4 % 9-22 area(s) ity of external 00:00: once daily [facility] as liquid 00 as needed Medical for Wound Branch care. chlorhexidi 0 Yes [id number] Apply to [facility] [place] ne 4 % 9-22 area(s) ity of external 00:00: once daily [facility] as liquid 00 as needed Medical for Wound Branch care. chlorhexidi 2020-0 Yes [id number] Apply to [facility] [place] ne 4 % 9-22 area(s) ity of external 00:00: once daily [facility] as liquid 00 as needed Medical for Wound Branch care. chlorhexidi Yes [id number] Apply to [facility] [place] ne 4 % 9-22 area(s) ity of external 00:00: once daily [facility] as liquid 00 as needed Medical for Wound Branch care. chlorhexidi Yes [id number] Apply to [facility] [place] ne 4 % 9-22 area(s) ity of external 00:00: once daily [facility] as liquid 00 as needed Medical for Wound Branch care. chlorhexidi Yes [id number] Apply to [facility] [place] ne 4 % 9-22 area(s) ity of external 00:00: once daily [facility] as liquid 00 as needed Medical for Wound Branch care. chlorhexidi Yes [id number] Apply to [facility] [place] ne 4 % 9-22 area(s) ity of external 00:00: once daily [facility] liquid 00 as needed Medical for Wound Branch care. ONETOUCH Yes [id number] Use as [facility] DELICA PLUS 7-27 directed ity of LANCET 30 00:00: for twice [facility] as gauge Misc 00 a day Medical glucose Branch monitoring for ICD E11.9 ONETOUCH Yes [id number] Use as [facility] DELICA PLUS 7-27 directed ity of LANCET 30 00:00: for twice [facility] as gauge Misc 00 a day Medical glucose Branch monitoring for ICD E11.9 TOUCH Yes [id number] Use as [facility] DELICA PLUS 7-27 directed ity of LANCET 30 00:00: for twice [facility] as gauge Misc 00 a day Medical glucose Branch monitoring for ICD E11.9 TOUCH Yes [id number] Use as [facility] DELICA PLUS 7-27 directed ity of LANCET 30 00:00: for twice [facility] as gauge Misc 00 a day Medical glucose Branch monitoring for ICD E11.9 TOUCH Yes [id number] Use as [facility] DELICA PLUS 7-27 directed ity of LANCET 30 00:00: for twice [facility] as gauge Misc 00 a day Medical glucose Branch monitoring for ICD E11.9 ONETOUCH Yes [id number] Use as [facility] DELICA PLUS 7-27 directed ity of LANCET 30 00:00: for twice [facility] as gauge Misc 00 a day Medical glucose Branch monitoring for ICD E11.9 ONETOUCH Yes [id number] Use as [facility] DELICA PLUS 7-27 directed ity of LANCET 30 00:00: for twice [facility] as gauge Misc 00 a day Medical glucose Branch monitoring for ICD E11.9 ONETOUCH 2020-0 Yes [id number] Use as [facility] DELICA PLUS 7-27 directed ity of LANCET 30 00:00: for twice [facility] as gauge Misc 00 a day Medical glucose Branch monitoring for ICD E11.9 ONETOUCH 2020- Yes [id number] Use as [facility] DELICA PLUS 7-27 directed ity of LANCET 30 00:00: for twice [facility] as gauge Misc 00 a day Medical glucose Branch monitoring for ICD E11.9 ONETOUCH Yes [id number] Use as [facility] DELICA PLUS 7-27 directed ity of LANCET 30 00:00: for twice [facility] as gauge Misc 00 a day Medical glucose Branch monitoring for ICD E11.9 ONETOUCH Yes [id number] Use as [facility] DELICA PLUS 7-27 directed ity of LANCET 30 00:00: for twice [facility] as gauge Misc 00 a day Medical glucose Branch monitoring for ICD E11.9 ONETOUCH Yes [id number] Use as [facility] DELICA PLUS 7-27 directed ity of LANCET 30 00:00: for twice [facility] as gauge Misc 00 a day Medical glucose Branch monitoring for ICD E11.9 ONETOUCH Yes [id number] Use as [facility] DELICA PLUS 7-27 directed ity of LANCET 30 00:00: for twice [facility] as gauge Misc 00 a day Medical glucose Branch monitoring for ICD E11.9 ONETOUCH Yes [id number] Use as [facility] DELICA PLUS 7-27 directed ity of LANCET 30 00:00: for twice [facility] as gauge Misc 00 a day Medical glucose Branch monitoring for ICD E11.9 ONETOUCH Yes [id number] Use as [facility] DELICA PLUS 7-27 directed ity of LANCET 30 00:00: for twice [facility] as gauge Misc 00 a day Medical glucose Branch monitoring for ICD E11.9 ONETOUCH Yes [id number] Use as [facility] DELICA PLUS 7-27 directed ity of LANCET 30 00:00: for twice [facility] as gauge Misc 00 a day Medical glucose Branch monitoring for ICD E11.9 ONETOUCH 2020-0 Yes [id number] Use as [facility] DELICA PLUS 7-27 directed ity of LANCET 30 00:00: for twice [facility] as gauge Misc 00 a day Medical glucose Branch monitoring for ICD E11.9 ONETOUCH 2020-0 Yes [id number] Use as [facility] DELICA PLUS 7-27 directed ity of LANCET 30 00:00: for twice [facility] as gauge Misc 00 a day Medical glucose Branch monitoring for ICD E11.9 ONETOUCH 2020-0 Yes [id number] Use as [facility] DELICA PLUS 7-27 directed ity of LANCET 30 00:00: for twice [facility] as gauge Misc 00 a day Medical glucose Branch monitoring for ICD E11.9 ONETOUCH 2020-0 Yes [id number] Use as [facility] DELICA PLUS 7-27 directed ity of LANCET 30 00:00: for twice [facility] as gauge Misc 00 a day Medical glucose Branch monitoring for ICD E11.9 ONETOUCH 2020-0 Yes [id number] Use as [facility] DELICA PLUS 7-27 directed ity of LANCET 30 00:00: for twice [facility] as gauge Misc 00 a day Medical glucose Branch monitoring for ICD E11.9 ONETOUCH 2020-0 Yes [id number] Use as [facility] DELICA PLUS 7-27 directed ity of LANCET 30 00:00: for twice [facility] as gauge Misc 00 a day Medical glucose Branch monitoring for ICD E11.9 ONETOUCH 2020-0 Yes [id number] Use as [facility] DELICA PLUS 7-27 directed ity of LANCET 30 00:00: for twice [facility] as gauge Misc 00 a day Medical glucose Branch monitoring for ICD E11.9 ONETOUCH 2020-0 Yes [id number] Use as [facility] DELICA PLUS 7-27 directed ity of LANCET 30 00:00: for twice [facility] as gauge Misc 00 a day Medical glucose Branch monitoring for ICD E11.9 ONETOUCH 2020-0 Yes [id number] Use as [facility] DELICA PLUS 7-27 directed ity of LANCET 30 00:00: for twice [facility] as gauge Misc 00 a day Medical glucose Branch monitoring for ICD E11.9 ONETOUCH 2020-0 Yes [id number] Use as [facility] DELICA PLUS 7-27 directed ity of LANCET 30 00:00: for twice [facility] as gauge Misc 00 a day Medical glucose Branch monitoring for ICD E11.9 ONETOUCH 2020-0 Yes [id number] Use as [facility] DELICA PLUS 7-27 directed ity of LANCET 30 00:00: for twice [facility] as gauge Misc 00 a day Medical glucose Branch monitoring for ICD E11.9 ONETOUCH 2020-0 Yes [id number] Use as [facility] DELICA PLUS 7-27 directed ity of LANCET 30 00:00: for twice [facility] as gauge Misc 00 a day Medical glucose Branch monitoring for ICD E11.9 ONETOUCH Yes [id number] Use as [facility] DELICA PLUS 7-27 directed ity of LANCET 30 00:00: for twice [facility] as gauge Misc 00 a day Medical glucose Branch monitoring for ICD E11.9 ONETOUCH Yes [id number] Use as [facility] DELICA PLUS 7-27 directed ity of LANCET 30 00:00: for twice [facility] as gauge Misc 00 a day Medical glucose Branch monitoring for ICD E11.9 ONETOUCH 0 Yes [id number] Use as [facility] DELICA PLUS 7-27 directed ity of LANCET 30 00:00: for twice [facility] as gauge Misc 00 a day Medical glucose Branch monitoring for ICD E11.9 ONETOUCH 0 Yes [id number] Use as [facility] DELICA PLUS 7-27 directed ity of LANCET 30 00:00: for twice [facility] as gauge Misc 00 a day Medical glucose Branch monitoring for ICD E11.9 ONETOUCH 0 Yes [id number] Use as [facility] DELICA PLUS 7-27 directed ity of LANCET 30 00:00: for twice [facility] as gauge Misc 00 a day Medical glucose Branch monitoring for ICD E11.9 ONETOUCH 2020-0 Yes [id number] Use as [facility] DELICA PLUS 7-27 directed ity of LANCET 30 00:00: for twice [facility] as gauge Misc 00 a day Medical glucose Branch monitoring for ICD E11.9 ONETOUCH 2020-0 Yes [id number] Use as [facility] DELICA PLUS 7-27 directed ity of LANCET 30 00:00: for twice [facility] as gauge Misc 00 a day Medical glucose Branch monitoring for ICD E11.9 ONETOUCH 2020-0 Yes [id number] Use as [facility] DELICA PLUS 7-27 directed ity of LANCET 30 00:00: for twice [facility] as gauge Misc 00 a day Medical glucose Branch monitoring for ICD E11.9 ONETOUCH 2020-0 Yes [id number] Use as [facility] DELICA PLUS 7-27 directed ity of LANCET 30 00:00: for twice [facility] as gauge Misc 00 a day Medical glucose Branch monitoring for ICD E11.9 ONETOUCH 2020-0 Yes [id number] Use as [facility] DELICA PLUS 7-27 directed ity of LANCET 30 00:00: for twice [facility] as gauge Misc 00 a day Medical glucose Branch monitoring for ICD E11.9 ONETOUCH 2020-0 Yes [id number] Use as [facility] DELICA PLUS 7-27 directed ity of LANCET 30 00:00: for twice [facility] as gauge Misc 00 a day Medical glucose Branch monitoring for ICD E11.9 ONETOUCH 2020-0 Yes [id number] Use as [facility] DELICA PLUS 7-27 directed ity of LANCET 30 00:00: for twice [facility] as gauge Misc 00 a day Medical glucose Branch monitoring for ICD E11.9 ONETOUCH 2020-0 Yes [id number] Use as [facility] DELICA PLUS 7-27 directed ity of LANCET 30 00:00: for twice [facility] as gauge Misc 00 a day Medical glucose Branch monitoring for ICD E11.9 ONETOUCH 2020-0 Yes [id number] Use as [facility] DELICA PLUS 7-27 directed ity of LANCET 30 00:00: for twice [facility] as gauge Misc 00 a day Medical glucose Branch monitoring for ICD E11.9 ONETOUCH 2020-0 Yes [id number] Use as [facility] DELICA PLUS 7-27 directed ity of LANCET 30 00:00: for twice [facility] as gauge Misc 00 a day Medical glucose Branch monitoring for ICD E11.9 ONETOUCH 2020-0 Yes [id number] Use as [facility] DELICA PLUS 7-27 directed ity of LANCET 30 00:00: for twice [facility] as gauge Misc 00 a day Medical glucose Branch monitoring for ICD E11.9 ONETOUCH 2020-0 Yes [id number] Use as [facility] DELICA PLUS 7-27 directed ity of LANCET 30 00:00: for twice [facility] as gauge Misc 00 a day Medical glucose Branch monitoring for ICD E11.9 ONETOUCH 2020-0 Yes [id number] Use as [facility] DELICA PLUS 7-27 directed ity of LANCET 30 00:00: for twice [facility] as gauge Misc 00 a day Medical glucose Branch monitoring for ICD E11.9 ONETOUCH 2020-0 Yes [id number] Use as [facility] DELICA PLUS 7-27 directed ity of LANCET 30 00:00: for twice [facility] as gauge Misc 00 a day Medical glucose Branch monitoring for ICD E11.9 ONETOUCH 0 Yes [id number] Use as Un justice DELICA PLUS 7-27 directed ity of LANCET 30 00:00: for twice [place] as gauge Misc 00 a day Medical glucose Branch monitoring for ICD E11.9 ONETOUCH 2020-0 Yes [id number] Use as Un justice DELICA PLUS 7-27 directed ity of LANCET 30 00:00: for twice [place] as gauge Misc 00 a day Medical glucose Branch monitoring for ICD E11.9 ONETOUCH 2020-0 Yes [id number] Use as Un justice DELICA PLUS 7-27 directed ity of LANCET 30 00:00: for twice [place] as gauge Misc 00 a day Medical glucose Branch monitoring for ICD E11.9 ONETOUCH 2020-0 Yes [id number] Use as Un justice DELICA PLUS 7-27 directed ity of LANCET 30 00:00: for twice [place] as gauge Misc 00 a day Medical glucose Branch monitoring for ICD E11.9 ONETOUCH 2020-0 Yes [id number] Use as Un justice DELICA PLUS 7-27 directed ity of LANCET 30 00:00: for twice [place] as gauge Misc 00 a day Medical glucose Branch monitoring for ICD E11.9 ONETOUCH 2020-0 Yes [id number] Use as Un justice DELICA PLUS 7-27 directed ity of LANCET 30 00:00: for twice [place] as gauge Misc 00 a day Medical glucose Branch monitoring for ICD E11.9 ONETOUCH 2020-0 Yes [id number] Use as Un justice DELICA PLUS 7-27 directed ity of LANCET 30 00:00: for twice [place] as gauge Misc 00 a day Medical glucose Branch monitoring for ICD E11.9 ONETOUCH 2020-0 Yes [id number] Use as Un justice DELICA PLUS 7-27 directed ity of LANCET 30 00:00: for twice [place] as gauge Misc 00 a day Medical glucose Branch monitoring for ICD E11.9 ONETOUCH 2020-0 Yes [id number] Use as Un justice DELICA PLUS 7-27 directed ity of LANCET 30 00:00: for twice [place] as gauge Misc 00 a day Medical glucose Branch monitoring for ICD E11.9 ONETOUCH 2020-0 Yes [id number] Use as Un justice DELICA PLUS 7-27 directed ity of LANCET 30 00:00: for twice [place] as gauge Misc 00 a day Medical glucose Branch monitoring for ICD E11.9 ONETOUCH 2020-0 Yes [id number] Use as Un justice DELICA PLUS 7-27 directed ity of LANCET 30 00:00: for twice [place] as gauge Misc 00 a day Medical glucose Branch monitoring for ICD E11.9 ONETOUCH 2020-0 Yes [id number] Use as Un justice DELICA PLUS 7-27 directed ity of LANCET 30 00:00: for twice [place] as gauge Misc 00 a day Medical glucose Branch monitoring for ICD E11.9 ONETOUCH 2020-0 Yes [id number] Use as Un justice DELICA PLUS 7-27 directed ity of LANCET 30 00:00: for twice [place] as gauge Misc 00 a day Medical glucose Branch monitoring for ICD E11.9 ONETOUCH 2020-0 Yes [id number] Use as Un justice DELICA PLUS 7-27 directed ity of LANCET 30 00:00: for twice [place] as gauge Misc 00 a day Medical glucose Branch monitoring for ICD E11.9 ONETOUCH 2020-0 Yes [id number] Use as Un justice DELICA PLUS 7-27 directed ity of LANCET 30 00:00: for twice [place] as gauge Misc 00 a day Medical glucose Branch monitoring for ICD E11.9 ONETOUCH 2020-0 Yes [id number] Use as Un justice DELICA PLUS 7-27 directed ity of LANCET 30 00:00: for twice [place] as gauge Misc 00 a day Medical glucose Branch monitoring for ICD E11.9 ONETOUCH 2020-0 Yes [id number] Use as Un justice DELICA PLUS 7-27 directed ity of LANCET 30 00:00: for twice [place] as gauge Misc 00 a day Medical glucose Branch monitoring for ICD E11.9 ONETOUCH 2020-0 Yes [id number] Use as Un justice DELICA PLUS 7-27 directed ity of LANCET 30 00:00: for twice [place] as gauge Misc 00 a day Medical glucose Branch monitoring for ICD E11.9 ONETOUCH 0 Yes [id number] Use as Un justice DELICA PLUS 7-27 directed ity of LANCET 30 00:00: for twice [place] as gauge Misc 00 a day Medical glucose Branch monitoring for ICD E11.9 ONETOUCH 0 Yes [id number] Use as Un justice DELICA PLUS 7-27 directed ity of LANCET 30 00:00: for twice [place] as gauge Misc 00 a day Medical glucose Branch monitoring for ICD E11.9 ONETOUCH 0 Yes [id number] Use as Un justice DELICA PLUS 7-27 directed ity of LANCET 30 00:00: for twice [place] as gauge Misc 00 a day Medical glucose Branch monitoring for ICD E11.9 ONETOUCH 0 Yes [id number] Use as Un justice DELICA PLUS 7-27 directed ity of LANCET 30 00:00: for twice [place] as gauge Misc 00 a day Medical glucose Branch monitoring for ICD E11.9 ONETOUCH 0 Yes [id number] Use as Un justice DELICA PLUS 7-27 directed ity of LANCET 30 00:00: for twice [place] as gauge Misc 00 a day Medical glucose Branch monitoring for ICD E11.9 ONETOUCH 0 Yes [id number] Use as Un justice DELICA PLUS 7-27 directed ity of LANCET 30 00:00: for twice [place] as gauge Misc 00 a day Medical glucose Branch monitoring for ICD E11.9 ONETOUCH 0 Yes [id number] Use as Un justice DELICA PLUS 7-27 directed ity of LANCET 30 00:00: for twice [place] as gauge Misc 00 a day Medical glucose Branch monitoring for ICD E11.9 Yes [id number] 75mg Take 1 [facility] 75 mg EC 9-02 [id number] tablet by ity of tablet 00:00: mouth (two) Medical times Branch daily with meals. diclofenac 2020-0 Yes [id number] 75mg Take 1 [facility] 75 mg EC 9-02 [id number] tablet by ity of tablet 00:00: mouth (two) Medical times Branch daily with meals. diclofenac 2020-0 Yes [id number] 75mg Take 1 [facility] 75 mg EC 9-02 [id number] tablet by ity of tablet 00:00: mouth (two) Medical times Branch daily with meals. diclofenac 2020-0 Yes [id number] 75mg Take 1 [facility] 75 mg EC 9-02 [id number] tablet by ity of tablet 00:00: mouth (two) Medical times Branch daily with meals. diclofenac 2020-0 Yes [id number] 75mg Take 1 [facility] 75 mg EC 9-02 [id number] tablet by ity of tablet 00:00: mouth (two) Medical times Branch daily with meals. diclofenac 2020-0 Yes [id number] 75mg Take 1 [facility] 75 mg EC 9-02 [id number] tablet by ity of tablet 00:00: mouth (two) Medical times Branch daily with meals. diclofenac 2020-0 Yes [id number] 75mg Take 1 [facility] 75 mg EC 9-02 [id number] tablet by ity of tablet 00:00: mouth (two) Medical times Branch daily with meals. diclofenac 2020-0 Yes [id number] 75mg Take 1 [facility] 75 mg EC 9-02 [id number] tablet by ity of tablet 00:00: mouth (two) Medical times Branch daily with meals. diclofenac 2020-0 Yes [id number] 75mg Take 1 [facility] 75 mg EC 9-02 [id number] tablet by ity of tablet 00:00: mouth 2 (two) Medical times Branch daily with meals. diclofenac 2020-0 Yes [id number] 75mg Take 1 [facility] 75 mg EC 9-02 [id number] tablet by ity of tablet 00:00: mouth 2 (two) Medical times Branch daily with meals. diclofenac 2020-0 Yes [id number] 75mg Take 1 [facility] 75 mg EC 9-02 [id number] tablet by ity of tablet 00:00: mouth (two) Medical times Branch daily with meals. diclofenac 2020-0 Yes [id number] 75mg Take 1 [facility] 75 mg EC 9-02 [id number] tablet by ity of tablet 00:00: mouth (two) Medical times Branch daily with meals. diclofenac 2020-0 Yes [id number] 75mg Take 1 [facility] 75 mg EC 9-02 [id number] tablet by ity of tablet 00:00: mouth (two) Medical times Branch daily with meals. diclofenac 2020-0 Yes [id number] 75mg Take 1 [facility] 75 mg EC 9-02 [id number] tablet by ity of tablet 00:00: mouth (two) Medical times Branch daily with meals. diclofenac 2020-0 Yes [id number] 75mg Take 1 [facility] 75 mg EC 9-02 [id number] tablet by ity of tablet 00:00: mouth (two) Medical times Branch daily with meals. diclofenac 2020-0 Yes [id number] 75mg Take 1 [facility] 75 mg EC 9-02 [id number] tablet by ity of tablet 00:00: mouth (two) Medical times Branch daily with meals. diclofenac 2020-0 Yes [id number] 75mg Take 1 [facility] 75 mg EC 9-02 [id number] tablet by ity of tablet 00:00: mouth [place] (two) Medical times Branch daily with meals. diclofenac 2020-0 Yes [id number] 75mg Take 1 [facility] 75 mg EC 9-02 [id number] tablet by ity of tablet 00:00: mouth (two) Medical times Branch daily with meals. diclofenac 2020-0 Yes [id number] 75mg Take 1 [facility] 75 mg EC 9-02 [id number] tablet by ity of tablet 00:00: mouth (two) Medical times Branch daily with meals. diclofenac 2020-0 Yes [id number] 75mg Take 1 [facility] 75 mg EC 9-02 [id number] tablet by ity of tablet 00:00: mouth [place] (two) Medical times Branch daily with meals. diclofenac 2020-0 Yes [id number] 75mg Take 1 [facility] 75 mg EC 9-02 [id number] tablet by ity of tablet 00:00: mouth 2 (two) Medical times Branch daily with meals. diclofenac 2020-0 Yes [id number] 75mg Take 1 [facility] 75 mg EC 9-02 [id number] tablet by ity of tablet 00:00: mouth 2 (two) Medical times Branch daily with meals. diclofenac 2020-0 Yes [id number] 75mg Take 1 [facility] 75 mg EC 9-02 [id number] tablet by ity of tablet 00:00: mouth 2 (two) Medical times Branch daily with meals. diclofenac 2020-0 Yes [id number] 75mg Take 1 [facility] 75 mg EC 9-02 [id number] tablet by ity of tablet 00:00: mouth 2 (two) Medical times Branch daily with meals. diclofenac 2020-0 Yes [id number] 75mg Take 1 [facility] 75 mg EC 9-02 [id number] tablet by ity of tablet 00:00: mouth 2 (two) Medical times Branch daily with meals. diclofenac 2020-0 Yes [id number] 75mg Take 1 [facility] 75 mg EC 9-02 [id number] tablet by ity of tablet 00:00: mouth [place] (two) Medical times Branch daily with meals. diclofenac 2020-0 Yes [id number] 75mg Take 1 [facility] 75 mg EC 9-02 [id number] tablet by ity of tablet 00:00: mouth [place] (two) Medical times Branch daily with meals. diclofenac 2020-0 Yes [id number] 75mg Take 1 [facility] 75 mg EC 9-02 [id number] tablet by ity of tablet 00:00: mouth [place] (two) Medical times Branch daily with meals. diclofenac 2020-0 Yes [id number] 75mg Take 1 [facility] 75 mg EC 9-02 [id number] tablet by ity of tablet 00:00: mouth [place] (two) Medical times Branch daily with meals. diclofenac 2020-0 Yes [id number] 75mg Take 1 [facility] 75 mg EC 9-02 [id number] tablet by ity of tablet 00:00: mouth [place] (two) Medical times Branch daily with meals. diclofenac 2020-0 Yes [id number] 75mg Take 1 [facility] 75 mg EC 9-02 [id number] tablet by ity of tablet 00:00: mouth 2 [place] (two) Medical times Branch daily with meals. diclofenac 2020-0 Yes [id number] 75mg Take 1 [facility] 75 mg EC 9-02 [id number] tablet by ity of tablet 00:00: mouth 2 [place] (two) Medical times Branch daily with meals. diclofenac 2020-0 Yes [id number] 75mg Take 1 [facility] 75 mg EC 9-02 [id number] tablet by ity of tablet 00:00: mouth 2 [place] (two) Medical times Branch daily with meals. diclofenac 2020-0 Yes [id number] 75mg Take 1 [facility] 75 mg EC 9-02 [id number] tablet by ity of tablet 00:00: mouth [place] (two) Medical times Branch daily with meals. diclofenac 2020-0 Yes [id number] 75mg Take 1 [facility] 75 mg EC 9-02 [id number] tablet by ity of tablet 00:00: mouth [place] (two) Medical times Branch daily with meals. diclofenac 2020-0 Yes [id number] 75mg Take 1 [facility] 75 mg EC 9-02 [id number] tablet by ity of tablet 00:00: mouth [place] (two) Medical times Branch daily with meals. diclofenac 2020-0 Yes [id number] 75mg Take 1 [facility] 75 mg EC 9-02 [id number] tablet by ity of tablet 00:00: mouth [place] (two) Medical times Branch daily with meals. diclofenac 2020-0 Yes [id number] 75mg Take 1 [facility] 75 mg EC 9-02 [id number] tablet by ity of tablet 00:00: mouth [address] [place] [address] (two) Medical times Branch daily with meals. diclofenac 2020-0 Yes [id number] 75mg Take 1 [facility] 75 mg EC 9-02 [id number] tablet by ity of tablet 00:00: mouth [address] [place] [address] (two) Medical times Branch daily with meals. diclofenac 2020-0 Yes [id number] 75mg Take 1 [facility] 75 mg EC 9-02 [id number] tablet by ity of tablet 00:00: mouth [place] (two) Medical times Branch daily with meals. diclofenac 2020-0 Yes [id number] 75mg Take 1 [facility] 75 mg EC 9-02 [id number] tablet by ity of tablet 00:00: mouth [address] [place] [address] (two) Medical times Branch daily with meals. diclofenac 2020-0 Yes [id number] 75mg Take 1 [facility] 75 mg EC 9-02 [id number] tablet by ity of tablet 00:00: mouth 2 [place] (two) Medical times Branch daily with meals. diclofenac 2020-0 Yes [id number] 75mg Take 1 [facility] 75 mg EC 9-02 [id number] tablet by ity of tablet 00:00: mouth 2 [place] (two) Medical times Branch daily with meals. diclofenac 2020-0 Yes [id number] 75mg Take 1 [facility] 75 mg EC 9-02 [id number] tablet by ity of tablet 00:00: mouth (two) Medical times Branch daily with meals. diclofenac 2020-0 Yes [id number] 75mg Take 1 [facility] 75 mg EC 9-02 [id number] tablet by ity of tablet 00:00: mouth (two) Medical times Branch daily with meals. diclofenac 2020-0 Yes [id number] 75mg Take 1 [facility] 75 mg EC 9-02 [id number] tablet by ity of tablet 00:00: mouth (two) Medical times Branch daily with meals. diclofenac 2020-0 Yes [id number] 75mg Take 1 [facility] 75 mg EC 9-02 [id number] tablet by ity of tablet 00:00: mouth (two) Medical times Branch daily with meals. diclofenac 2020-0 Yes [id number] 75mg Take 1 [facility] 75 mg EC 9-02 [id number] tablet by ity of tablet 00:00: mouth (two) Medical times Branch daily with meals. diclofenac 2020-0 Yes [id number] 75mg Take 1 [facility] 75 mg EC 9-02 [id number] tablet by ity of tablet 00:00: mouth (two) Medical times Branch daily with meals. diclofenac 2020-0 Yes [id number] 75mg Take 1 [facility] 75 mg EC 9-02 [id number] tablet by ity of tablet 00:00: mouth (two) Medical times Branch daily with meals. diclofenac 2020-0 Yes [id number] 75mg Take 1 [facility] 75 mg EC 9-02 [id number] tablet by ity of tablet 00:00: mouth (two) Medical times Branch daily with meals. diclofenac 2020-0 Yes [id number] 75mg Take 1 [facility] 75 mg EC 9-02 [id number] tablet by ity of tablet 00:00: mouth (two) Medical times Branch daily with meals. diclofenac 2020-0 Yes [id number] 75mg Take 1 [facility] 75 mg EC 9-02 [id number] tablet by ity of tablet 00:00: mouth (two) Medical times Branch daily with meals. diclofenac 2020-0 Yes [id number] 75mg Take 1 [facility] 75 mg EC 9-02 [id number] tablet by ity of tablet 00:00: mouth (two) Medical times Branch daily with meals. diclofenac 2020-0 Yes [id number] 75mg Take 1 [facility] 75 mg EC 9-02 [id number] tablet by ity of tablet 00:00: mouth (two) Medical times Branch daily with meals. diclofenac 2020-0 Yes [id number] 75mg Take 1 [facility] 75 mg EC 9-02 [id number] tablet by ity of tablet 00:00: mouth 2 (two) Medical times Branch daily with meals. diclofenac 2020-0 Yes [id number] 75mg Take 1 [facility] 75 mg EC 9-02 [id number] tablet by ity of tablet 00:00: mouth (two) Medical times Branch daily with meals. diclofenac 2020-0 Yes [id number] 75mg Take 1 [facility] 75 mg EC 9-02 [id number] tablet by ity of tablet 00:00: mouth 2 (two) Medical times Branch daily with meals. diclofenac 2020-0 Yes [id number] 75mg Take 1 [facility] 75 mg EC 9-02 [id number] tablet by ity of tablet 00:00: mouth (two) Medical times Branch daily with meals. diclofenac 2020-0 Yes [id number] 75mg Take 1 [facility] 75 mg EC 9-02 [id number] tablet by ity of tablet 00:00: mouth (two) Medical times Branch daily with meals. diclofenac 2020-0 Yes [id number] 75mg Take 1 [facility] 75 mg EC 9-02 [id number] tablet by ity of tablet 00:00: mouth (two) Medical times Branch daily with meals. diclofenac 2020-0 Yes [id number] 75mg Take 1 [facility] 75 mg EC 9-02 [id number] tablet by ity of tablet 00:00: mouth (two) Medical times Branch daily with meals. diclofenac 2020-0 Yes [id number] 75mg Take 1 [facility] 75 mg EC 9-02 [id number] tablet by ity of tablet 00:00: mouth (two) Medical times Branch daily with meals. diclofenac 2020-0 Yes [id number] 75mg Take 1 [facility] 75 mg EC 9-02 [id number] tablet by ity of tablet 00:00: mouth (two) Medical times Branch daily with meals. diclofenac 2020-0 Yes [id number] 75mg Take 1 [facility] 75 mg EC 9-02 [id number] tablet by ity of tablet 00:00: mouth 2 (two) Medical times Branch daily with meals. diclofenac 2020-0 Yes [id number] 75mg Take 1 [facility] 75 mg EC 9-02 [id number] tablet by ity of tablet 00:00: mouth 2 00 (two) Medical times Branch daily with meals. diclofenac 2020-0 Yes [id number] 75mg Take 1 [facility] 75 mg EC 9-02 [id number] tablet by ity of tablet 00:00: mouth 2 00 (two) Medical times Branch daily with meals. diclofenac 2020-0 Yes [id number] 75mg Take 1 [facility] 75 mg EC 9-02 [id number] tablet by ity of tablet 00:00: mouth 2 00 (two) Medical times Branch daily with meals. diclofenac 2020-0 Yes [id number] 75mg Take 1 [facility] 75 mg EC 9-02 [id number] tablet by ity of tablet 00:00: mouth 2 (two) Medical times Branch daily with meals. diclofenac 2020-0 Yes [id number] 75mg Take 1 [facility] 75 mg EC 9-02 [id number] tablet by ity of tablet 00:00: mouth 2 (two) Medical times Branch daily with meals. diclofenac 2020-0 Yes [id number] 75mg Take 1 [facility] 75 mg EC 9-02 [id number] tablet by ity of tablet 00:00: mouth 2 (two) Medical times Branch daily with meals. diclofenac 2020-0 Yes [id number] 75mg Take 1 [facility] 75 mg EC 9-02 [id number] tablet by ity of tablet 00:00: mouth 2 [place] 00 (two) Medical times Branch daily with meals. Miscellaneo 2020-0 Yes [id number] [facility] [place] [facility] Kit 00:00: - Dispense [place] 00 # 1 [facility] [place] [facility] Respironic s (okay for alternativ e brand) for nebulizer treatment Miscellaneo 2020-0 Yes [id number] J40: Un [employer] [facility] 11-22 [place] ity of Supply Kit 00:00: - Dispense [place] 00 # 1 [facility] [place] Branch Respironic s (okay for alternativ e brand) for nebulizer treatment Miscellaneo 2020-0 Yes [id number] J40: Un [employer] [facility] 11-22 [place] ity of Supply Kit 00:00: - Dispense [place] 00 # 1 [facility] [place] [facility] Respironic s (okay for alternativ e brand) for nebulizer treatment Miscellaneo 2020-0 Yes [id number] J40: Un [facility] 11-22 [place] ity of Supply Kit 00:00: - Dispense [place] 00 # 1 [facility] [place] [facility] Respironic s (okay for alternativ e brand) for nebulizer treatment Miscellaneo 2020-0 Yes [id number] J40: Un [facility] 11-22 [place] ity of Supply Kit 00:00: - Dispense [place] 00 # 1 [facility] Respironic s (okay for alternativ e brand) for nebulizer treatment Miscellaneo 2020-0 Yes [id number] J40: Un [facility] 11-22 [place] ity of Supply Kit 00:00: - Dispense [place] 00 # 1 [facility] Respironic s (okay for alternativ e brand) for nebulizer treatment Miscellaneo 2020-0 Yes [id number] J40: Un [facility] 11-22 [place] ity of Supply Kit 00:00: - Dispense [place] 00 # 1 [facility] Respironic s (okay for alternativ e brand) for nebulizer treatment Miscellaneo 2020-0 Yes [id number] J40: Un [facility] 11-22 [place] ity of Supply Kit 00:00: - Dispense [place] 00 # 1 [facility] Respironic s (okay for alternativ e brand) for nebulizer treatment Miscellaneo 2020-0 Yes [id number] J40: Un [facility] 11-22 [place] ity of Supply Kit 00:00: - Dispense [place] 00 # 1 [facility] Respironic s (okay for alternativ e brand) for nebulizer treatment Miscellaneo 2020-0 Yes [id number] J40: Un [facility] 11-22 [place] ity of Supply Kit 00:00: - Dispense [place] 00 # 1 [facility] Respironic s (okay for alternativ e brand) for nebulizer treatment Miscellaneo 2020-0 Yes [id number] J40: Un [facility] 11-22 [place] ity of Supply Kit 00:00: - Dispense [place] 00 # 1 [facility] Respironic s (okay for alternativ e brand) for nebulizer treatment Miscellaneo 2020-0 Yes [id number] J40: Un [facility] 11-22 [place] ity of Supply Kit 00:00: - Dispense [place] 00 # 1 [facility] Respironic s (okay for alternativ e brand) for nebulizer treatment Miscellaneo 2020-0 Yes [id number] J40: Un [facility] 11-22 [place] ity of Supply Kit 00:00: - Dispense [place] 00 # 1 [facility] [place] [facility] Respironic s (okay for alternativ e brand) for nebulizer treatment Miscellaneo 2020-0 Yes [id number] J40: Un [facility] 11-22 [place] ity of Supply Kit 00:00: - Dispense [place] 00 # 1 [facility] Respironic s (okay for alternativ e brand) for nebulizer treatment Miscellaneo 2020-0 Yes [id number] J40: Un [facility] 11-22 [place] ity of Supply Kit 00:00: - Dispense [place] 00 # 1 [facility] [place] [facility] Respironic s (okay for alternativ e brand) for nebulizer treatment Miscellaneo 2020-0 Yes [id number] J40: Un [facility] 11-22 [place] ity of Supply Kit 00:00: - Dispense [place] 00 # 1 [facility] [place] [facility] Respironic s (okay for alternativ e brand) for nebulizer treatment Miscellaneo 2020-0 Yes [id number] J40: Un [facility] 11-22 [place] ity of Supply Kit 00:00: - Dispense [place] 00 # 1 [facility] [place] [facility] Respironic s (okay for alternativ e brand) for nebulizer treatment Miscellaneo 2020-0 Yes [id number] J40: Un [facility] 11-22 [place] ity of Supply Kit 00:00: - Dispense [place] 00 # 1 [facility] [place] [facility] Respironic s (okay for alternativ e brand) for nebulizer treatment Miscellaneo 2020-0 Yes [id number] J40: Un [facility] 11-22 [place] ity of Supply Kit 00:00: - Dispense [place] 00 # 1 [facility] [place] [facility] Respironic s (okay for alternativ e brand) for nebulizer treatment Miscellaneo 2020-0 Yes [id number] [facility] [place] ity [facility] Supply Kit 00:00: - Dispense [place] 00 # 1 [facility] [place] [facility] Respironic s (okay for alternativ e brand) for nebulizer treatment Miscellaneo 2020-0 Yes [id number] J40: Un [facility] 11-22 [place] ity of Supply Kit 00:00: - Dispense [place] 00 # 1 [facility] [place] [facility] Respironic s (okay for alternativ e brand) for nebulizer treatment Miscellaneo 2020-0 Yes [id number] J40: Un [facility] 11-22 [place] ity of Supply Kit 00:00: - Dispense [place] 00 # 1 [facility] [place] [facility] Respironic s (okay for alternativ e brand) for nebulizer treatment Miscellaneo 2020-0 Yes [id number] J40: Un [facility] 11-22 [place] ity of Supply Kit 00:00: - Dispense [place] 00 # 1 [facility] [place] [facility] Respironic s (okay for alternativ e brand) for nebulizer treatment Miscellaneo 2020-0 Yes [id number] J40: Un [facility] 11-22 [place] ity of Supply Kit 00:00: - Dispense [place] 00 # 1 [facility] [place] [facility] Respironic s (okay for alternativ e brand) for nebulizer treatment Miscellaneo 2020-0 Yes [id number] J40: Un [facility] 11-22 [place] ity of Supply Kit 00:00: - Dispense [place] 00 # 1 [facility] [place] [facility] Respironic s (okay for alternativ e brand) for nebulizer treatment Miscellaneo 2020-0 Yes [id number] J40: Un [facility] 11-22 [place] ity of Supply Kit 00:00: - Dispense [place] 00 # 1 [facility] [place] [facility] Respironic s (okay for alternativ e brand) for nebulizer treatment Miscellaneo 2020-0 Yes [id number] [facility] [place] ity of Supply Kit 00:00: - Dispense [place] 00 # 1 [facility] Respironic s (okay for alternativ e brand) for nebulizer treatment Miscellaneo 2020-0 Yes [id number] J[facility] [place] ity of Supply Kit 00:00: - Dispense [place] 00 # 1 [facility] [place] [facility] Respironic s (okay for alternativ e brand) for nebulizer treatment Miscellaneo 2020-0 Yes [id number] J[facility] [place] ity of Supply Kit 00:00: - Dispense [place] 00 # 1 [facility] [place] [facility] Respironic s (okay for alternativ e brand) for nebulizer treatment Miscellaneo 2020-0 Yes [id number] J[facility] [place] ity of Supply Kit 00:00: - Dispense [place] 00 # 1 [facility] [place] [facility] Respironic s (okay for alternativ e brand) for nebulizer treatment Miscellaneo 2020-0 Yes [id number] [facility] [place] [facility]y [facility] Supply Kit 00:00: - Dispense [place] 00 # 1 [facility] [place] [facility] Respironic s (okay for alternativ e brand) for nebulizer treatment Miscellaneo 2020-0 Yes [id number] J40: Un [facility] 11-22 [place] ity of Supply Kit 00:00: - Dispense [place] 00 # 1 [facility] [place] [facility] Respironic s (okay for alternativ e brand) for nebulizer treatment Miscellaneo 2020-0 Yes [id number] J40: Un [facility] [place] 11-22 [place] ity of Supply Kit 00:00: - [place] [facility] Respironic s (okay for alternativ e brand) for nebulizer treatment Misc[place]ane[place] 2020-0 Yes [id number] [facility]:00: - [place] # 1 [facility] Respironic s (okay for alternativ e brand) for nebulizer treatment Misc[place]aneo 2020-0 Yes [id number] [facility]: [facility] [place] it[facility] Supply Kit 00:00: - [place] 00 # 1 [facility] Respironic s (okay for alternativ e brand) for nebulizer treatment [place]o 2020-0 Yes [id number] [facility]: [facility] [place] it[facility] Supply Kit 00:00: - [place] 00 # 1 [facility] Respironic s (okay for alternativ e brand) for nebulizer treatment Misc[place]o 2020-0 Yes [id number] J[facility]: [facility] [place] ity [facility] Supply Kit 00:00: - [place] 00 # 1 [facility] Respironic s (okay for alternativ e brand) for nebulizer treatment Miscellaneo 2020-0 Yes [id number] [facility]40: [facility] [place] it[facility] Supply Kit 00:00: - [place] 00 # 1 [facility] Respironic s (okay for alternativ e brand) for nebulizer treatment Misc[place] 2020-0 Yes [id number] J40: [facility] [place] ity of Supply Kit 00:00: - [place] 00 # 1 [facility] Respironic s (okay for alternativ e brand) for nebulizer treatment Miscellaneo 2020-0 Yes [id number] J40: Un [facility] [place] 11-22 Brochitis ity of Supply Kit 00:00: - [place]ense [place] 00 # 1 [facility] Respironic s (okay for alternativ e brand) for nebulizer treatment Miscellaneo 2020-0 Yes [id number] J40: [facility] [place] ity of Supply Kit 00:00: - [place] 00 # 1 [facility] Respironic s (okay for alternativ e brand) for nebulizer treatment Miscellaneo 2020-0 Yes [id number] J40: [facility] [place] ity of Supply Kit 00:00: - [place] 00 # 1 [facility] Respironic s (okay for alternativ e brand) for nebulizer treatment Miscellaneo 2020-0 Yes [id number] J40[facility] [place] ity of Supply Kit 00:00: - [place] 00 # 1 [facility] Respironic s (okay for alternativ e brand) for nebulizer treatment Miscellaneo 2020-0 Yes [id number] J40: Un [facility] [place] 11-22 [place] ity of Supply Kit 00:00: - [place] 00 # 1 [facility] Respironic s (okay for alternativ e brand) for nebulizer treatment Miscellaneo 2020-0 Yes [id number] J40: Un [facility] [place] 11-22 [place] ity of Supply Kit 00:00: - [place] 00 # 1 [facility] Respironic s (okay for alternativ e brand) for nebulizer treatment Miscellaneo 2020-0 Yes [id number] J40: Un [facility] [place] 11-22 [place] ity of Supply Kit 00:00: - [place] 00 # 1 [facility] Respironic s (okay for alternativ e brand) for nebulizer treatment Miscellaneo 2020-0 Yes [id number] J40: Un [facility] [place] 11-22 [place] ity of Supply Kit 00:00: - [place] 00 # 1 [facility] Respironic s (okay for alternativ e brand) for nebulizer treatment Miscellaneo 2020-0 Yes [id number] J40: Un [facility] [place] 11-22 [place] ity of Supply Kit 00:00: - [place] 00 # 1 [facility] Respironic s (okay for alternativ e brand) for nebulizer treatment Miscellaneo 2020-0 Yes [id number] J40: Un [facility] [place] 11-22 [place] ity of Supply Kit 00:00: - [place] 00 # 1 [facility] Respironic s (okay for alternativ e brand) for nebulizer treatment Miscellaneo 2020-0 Yes [id number] J40: Un [facility] [place] 11-22 [place] ity of Supply Kit 00:00: - [place] 00 # 1 [facility] Respironic s (okay for alternativ e brand) for nebulizer treatment Miscellaneo 2020-0 Yes [id number] J40: Un [facility] [place] 11-22 [place] ity of Supply Kit 00:00: - [place] 00 # 1 [facility] Respironic s (okay for alternativ e brand) for nebulizer treatment Miscellaneo 2020-0 Yes [id number] J40: Un [facility] [place] 11-22 [place] ity of Supply Kit 00:00: - [place] 00 # 1 [facility] Respironic s (okay for alternativ e brand) for nebulizer treatment Miscellaneo 2020-0 Yes [id number] J40: Un [facility] [place] 11-22 [place] ity of Supply Kit 00:00: - [place] 00 # 1 [facility] Respironic s (okay for alternativ e brand) for nebulizer treatment Miscellaneo 2020-0 Yes [id number] J40: Un [facility] [place] 11-22 [place] ity of Supply Kit 00:00: - [place] 00 # 1 [facility] Respironic s (okay for alternativ e brand) for nebulizer treatment Miscellaneo 2020-0 Yes [id number] J40: Un [facility] [place] 11-22 [place] ity of Supply Kit 00:00: - [place] 00 # 1 [facility] Respironic s (okay for alternativ e brand) for nebulizer treatment Miscellaneo 2020-0 Yes [id number] J40: Un [facility] [place] 11-22 [place] ity of Supply Kit 00:00: - [place]ense [place] 00 # 1 [facility] Respironic s (okay for alternativ e brand) for nebulizer treatment Miscellaneo 2020-0 Yes [id number] J40: Un [facility] [place] 11-22 [place] ity of Supply Kit 00:00: - [place] 00 # 1 [facility] Respironic s (okay for alternativ e brand) for nebulizer treatment Miscellaneo 2020-0 Yes [id number] J40: Un [facility] [place] 11-22 [place] ity of Supply Kit 00:00: - [place] 00 # 1 [facility] Respironic s (okay for alternativ e brand) for nebulizer treatment Miscellaneo 2020-0 Yes [id number] J40: Un [facility] [place] 11-22 Bro[place] ity of Supply Kit 00:00: - [place] 00 # 1 [facility] Respironic s (okay for alternativ e brand) for nebulizer treatment Miscellaneo 2020-0 Yes [id number] J40: Un [facility] [place] 11-22 [place] ity of Supply Kit 00:00: - [place] 00 # 1 [facility] Respironic s (okay for alternativ e brand) for nebulizer treatment Miscellaneo 2020-0 Yes [id number] J40: Un [facility] [place] 11-22 [place] ity of Supply Kit 00:00: - [place] 00 # 1 [facility] Respironic s (okay for alternativ e brand) for nebulizer treatment Miscellaneo 2020-0 Yes [id number] J40: Un [facility] [place] 11-22 [place] ity of Supply Kit 00:00: - [place] 00 # 1 [facility] Respironic s (okay for alternativ e brand) for nebulizer treatment Miscellaneo 2020-0 Yes [id number] J40: Un [facility] [place] 11-22 [place] ity of Supply Kit 00:00: - [place] 00 # 1 [facility] Respironic s (okay for alternativ e brand) for nebulizer treatment Miscellaneo 2020-0 Yes [id number] J40: Un [facility] [place] 11-22 [place] ity of Supply Kit 00:00: - [place]ense [place] 00 # 1 [facility] Respironic s (okay for alternativ e brand) for nebulizer treatment Miscellaneo 2020-0 Yes [id number] J40: Un [facility] [place] 11-22 [place] ity of Supply Kit 00:00: - [place]ense [place] 00 # 1 [facility] Respironic s (okay for alternativ e brand) for nebulizer treatment Miscellaneo 2020-0 Yes [id number] J40: Un [facility] [place] 11-22 [place] ity of Supply Kit 00:00: - [place] 00 # 1 [facility] Respironic s (okay for alternativ e brand) for nebulizer treatment Miscellaneo 2020-0 Yes [id number] J40: Un [facility] [place] 11-22 [place] ity of Supply Kit 00:00: - [place]ense [place] 00 # 1 [facility] Respironic s (okay for alternativ e brand) for nebulizer treatment Miscellaneo 2020-0 Yes [id number] J40: Un [facility] [place] 11-22 [place] ity of Supply Kit 00:00: - [place]ense [place] 00 # 1 [facility] Respironic s (okay for alternativ e brand) for nebulizer treatment Miscellaneo 2020-0 Yes [id number] J40: Un [facility] [place] 11-22 [place] ity of Supply Kit 00:00: - [place]ense [place] 00 # 1 [facility] Respironic s (okay for alternativ e brand) for nebulizer treatment Miscellaneo 2020-0 Yes [id number] J40: Un [facility] [place] 11-22 [place] ity of Supply Kit 00:00: - [place]ense [place] 00 # 1 [facility] Respironic s (okay for alternativ e brand) for nebulizer treatment Miscellaneo 2020-0 Yes [id number] J40: Un [facility] [place] 11-22 [place] ity of Supply Kit 00:00: - [place]ense [place] 00 # 1 [facility] Respironic s (okay for alternativ e brand) for nebulizer treatment Miscellaneo 2020-0 Yes [id number] J40: Un [facility] [place] 11-22 [place] ity of Supply Kit 00:00: - [place]ense [place] 00 # 1 [facility] Respironic s (okay for alternativ e brand) for nebulizer treatment ALCOHOL 2018-0 Yes Univers PREP PADS 6-14 ity of PadM 00:00: [place] [facility] ALCOHOL 2018-0 Yes Univers PREP PADS 6-14 ity of PadM 00:00: [place] 00 [facility] ALCOHOL 2018-0 Yes Univers PREP PADS 6-14 ity of PadM 00:00: Medical Branch ALCOHOL 2018-0 Yes Univers PREP PADS 6-14 ity of PadM 00:00: [place] [facility] ALCOHOL 2018-0 Yes Univers PREP PADS 6-14 ity of PadM 00:00: [place] [facility] ALCOHOL 2018-0 Yes Univers PREP PADS 6-14 ity of PadM 00:00: [place] [facility] ALCOHOL 2018-0 Yes Univers PREP PADS 6-14 ity of PadM 00:00: [place] [facility] ALCOHOL 2018-0 Yes Univers PREP PADS 6-14 ity of PadM 00:00: [place] [facility] ALCOHOL 2018-0 Yes Univers PREP PADS 6-14 ity of PadM 00:00: [place] [facility] ALCOHOL 2018-0 Yes Univers PREP PADS 6-14 ity of PadM 00:00: [place] [facility] ALCOHOL 2018-0 Yes Univers PREP PADS 6-14 ity of PadM 00:00: [place] [facility] ALCOHOL 2018-0 Yes Univers PREP PADS 6-14 ity of PadM 00:00: [place] [facility] ALCOHOL 2018-0 Yes Univers PREP PADS 6-14 ity of PadM 00:00: [place] [facility] ALCOHOL 2018-0 Yes Univers PREP PADS 6-14 ity of PadM 00:00: [place] [facility] ALCOHOL 2018-0 Yes Univers PREP PADS 6-14 ity of PadM 00:00: [place] [facility] ALCOHOL 2018-0 Yes Univers PREP PADS 6-14 ity of PadM 00:00: [place] [facility] ALCOHOL 2018-0 Yes Univers PREP PADS 6-14 ity of PadM 00:00: [place] [facility] ALCOHOL 2018-0 Yes Univers PREP PADS 6-14 ity of PadM 00:00: [place] [facility] ALCOHOL 2018-0 Yes Univers PREP PADS 6-14 ity of PadM 00:00: [place] [facility] ALCOHOL 2018-0 Yes Univers PREP PADS 6-14 ity of PadM 00:00: [place] [facility] ALCOHOL 2018-0 Yes Univers PREP PADS 6-14 ity of PadM 00:00: [place] [facility] ALCOHOL 2018-0 Yes Univers PREP PADS 6-14 ity of PadM 00:00: [place] [facility] ALCOHOL 2018-0 Yes Univers PREP PADS 6-14 ity of PadM 00:00: [place] [facility] ALCOHOL 2018-0 Yes Univers PREP PADS 6-14 ity of PadM 00:00: [place] [facility] ALCOHOL 2018-0 Yes Univers PREP PADS 6-14 ity of PadM 00:00: [place] [facility] ALCOHOL 2018-0 Yes Univers PREP PADS 6-14 ity of PadM 00:00: [place] [facility] ALCOHOL 2018-0 Yes Univers PREP PADS 6-14 ity of PadM 00:00: [place] [facility] ALCOHOL 2018-0 Yes Univers PREP PADS 6-14 ity of PadM 00:00: [place] [facility] ALCOHOL 2018-0 Yes Univers PREP PADS 6-14 ity of PadM 00:00: [place] [facility] ALCOHOL 2018-0 Yes Univers PREP PADS 6-14 ity of PadM 00:00: [place] [facility] ALCOHOL 2018-0 Yes Univers PREP PADS 6-14 ity of PadM 00:00: [place] [facility] ALCOHOL 2018-0 Yes Univers PREP PADS 6-14 ity of PadM 00:00: [place] [facility] ALCOHOL 2018-0 Yes Univers PREP PADS 6-14 ity of PadM 00:00: [place] [facility] ALCOHOL 2018-0 Yes Univers PREP PADS 6-14 ity of PadM 00:00: [place] [facility] ALCOHOL 2018-0 Yes Univers PREP PADS 6-14 ity of PadM 00:00: [place] [facility] ALCOHOL 2018-0 Yes Univers PREP PADS 6-14 ity of PadM 00:00: [place] [facility] ALCOHOL 2018-0 Yes Univers PREP PADS 6-14 ity of PadM 00:00: [place] [facility] ALCOHOL 2018-0 Yes Univers PREP PADS 6-14 ity of PadM 00:00: [place] [facility] ALCOHOL 2018-0 Yes Univers PREP PADS 6-14 ity of PadM 00:00: [place] [facility] ALCOHOL 2018-0 Yes Univers PREP PADS 6-14 ity of PadM 00:00: [place] [facility] ALCOHOL 2018-0 Yes Univers PREP PADS 6-14 ity of PadM 00:00: [place] [facility] ALCOHOL 2018-0 Yes Univers PREP PADS 6-14 ity of PadM 00:00: [place] [facility] ALCOHOL 2018-0 Yes Univers PREP PADS 6-14 ity of PadM 00:00: [place] [facility] ALCOHOL 2018-0 Yes Univers PREP PADS 6-14 ity of PadM 00:00: [place] [facility] ALCOHOL 2018-0 Yes Univers PREP PADS 6-14 ity of PadM 00:00: [place] [facility] ALCOHOL 2018-0 Yes Univers PREP PADS 6-14 ity of PadM 00:00: [place] [facility] ALCOHOL 2018-0 Yes Univers PREP PADS 6-14 ity of PadM 00:00: [place] [facility] ALCOHOL 2018-0 Yes Univers PREP PADS 6-14 ity of PadM 00:00: [place] [facility] ALCOHOL 2018-0 Yes Univers PREP PADS 6-14 ity of PadM 00:00: [place] 00 [facility] ALCOHOL 2018-0 Yes Univers PREP PADS 6-14 ity of PadM 00:00: [place] [facility] ALCOHOL 2018-0 Yes Univers PREP PADS 6-14 ity of PadM 00:00: [place] [facility] ALCOHOL 2018-0 Yes Univers PREP PADS 6-14 ity of PadM 00:00: [place] [facility] ALCOHOL 2018-0 Yes Univers PREP PADS 6-14 ity of PadM 00:00: [place] [facility] ALCOHOL 2018-0 Yes Univers PREP PADS 6-14 ity of PadM 00:00: [place] [facility] ALCOHOL 2018-0 Yes Univers PREP PADS 6-14 ity of PadM 00:00: [place] [facility] ALCOHOL 2018-0 Yes Univers PREP PADS 6-14 ity of PadM 00:00: [place] [facility] ALCOHOL 2018-0 Yes Univers PREP PADS 6-14 ity of PadM 00:00: [place] [facility] ALCOHOL 2018-0 Yes Univers PREP PADS 6-14 ity of PadM 00:00: [place] [facility] ALCOHOL 2018-0 Yes Univers PREP PADS 6-14 ity of PadM 00:00: [place] [facility] ALCOHOL 2018-0 Yes Univers PREP PADS 6-14 ity of PadM 00:00: [place] [facility] ALCOHOL 2018-0 Yes Univers PREP PADS 6-14 ity of PadM 00:00: [place] [facility] ALCOHOL 2018-0 Yes Univers PREP PADS 6-14 ity of PadM 00:00: [place] [facility] ALCOHOL 2018-0 Yes Univers PREP PADS 6-14 ity of PadM 00:00: [place] [facility] ALCOHOL 2018-0 Yes Univers PREP PADS 6-14 ity of PadM 00:00: [place] [facility] ALCOHOL 2018-0 Yes Univers PREP PADS 6-14 ity of PadM 00:00: [place] [facility] ALCOHOL 2018-0 Yes Univers PREP PADS 6-14 ity of PadM 00:00: [place] [facility] ALCOHOL 2018-0 Yes Univers PREP PADS 6-14 ity of PadM 00:00: [place] [facility] ALCOHOL 2018-0 Yes Univers PREP PADS 6-14 ity of PadM 00:00: [place] [facility] ALCOHOL 2018-0 Yes Univers PREP PADS 6-14 ity of PadM 00:00: [place] [facility] ALCOHOL 0 Yes Univers PREP PADS 6-14 ity of PadM 00:00: [place] [facility] ALCOHOL [id number] Yes Univers PREP PADS 6-14 ity of PadM 00:00: Medical [facility] ALCOHOL 0 Yes Univers PREP PADS 6-14 ity of PadM 00:00: Medical Branch loxapine 0 Yes Univers (LOXITANE) [...] ity of 50 mg 00:00: [place] capsule 00 Medical [facility] loxapine Yes Univers (LOXITANE) 1-20 [...] ity of 50 mg 00:00: [place] capsule 00 Medical Branch loxapine Yes Univers (LOXITANE) 1-20 [...] 50 mg 00:00: [place] capsule Medical [facility] Immunizations Ordered Filled Immunization Date Status Comments [facility] Immunization Name Name Influenza Virus 2022-04-03 [...] Completed Unive rsity of MODERNA 0.25ML 00:00:00 [facility] VACCINE Branch SARS-COV-2 COVID-19 2021-06-04 Completed Unive [...] y of Vaccine Quad .5 mL 00:00:00 [place] [facility] IM 6+ MO Branch Pneumococcal 2020-06-15 Completed University o f Polysaccharide, 00:00:00 [place] [facility] ical PPSV23 (PNEUMOVAX) Branch Influenza Virus 2020-06-15 Completed Universit y of Vaccine Quad .5 mL 00:00:00 [place] [facility] IM 6+ MO Branch Pneumococcal 2020-06-15 Completed University o f Polysaccharide, 00:00:00 [place] [facility] ical PPSV23 (PNEUMOVAX) Branch Influenza Virus 2020-06-15 Completed Universit y of Vaccine Quad .5 mL 00:00:00 [place] [facility] IM 6+ MO Branch Pneumococcal 2020-06-15 [...] y of Vaccine Quad .5 mL 00:00:00 [place] [facility] 6+ MO Branch Pneumococcal 2020-06-15 Completed University o f Polysaccharide, 00:00:00 [place] [facility] ical PPSV23 (PNEUMOVAX) Branch Influenza Virus 2020-06-15 Completed Universit y of Vaccine Quad .5 mL 00:00:00 [place] [facility] 6+ MO Branch Pneumococcal 2020-06-15 Completed University o f Polysaccharide, 00:00:00 [place] [facility] ical PPSV23 (PNEUMOVAX) Branch Influenza Virus 2020-06-15 Completed Universit y of Vaccine Quad .5 mL 00:00:00 [place] [facility] 6+ MO Branch Pneumococcal 2020-06-15 [...] of Vaccine Quad .5 mL 00:00:00 [place] [facility] 6+ MO Branch Pneumococcal 2020-06-15 Completed University o f Polysaccharide, 00:00:00 [place] [facility] ical PPSV23 (PNEUMOVAX) Branch Influenza Virus 2020-06-15 Completed Universit y of Vaccine Quad .5 mL 00:00:00 [facility] 6+ MO Branch Pneumococcal 2020-06-15 Completed University o f Polysaccharide, 00:00:00 [place] [facility] ical PPSV23 (PNEUMOVAX) Branch Influenza Virus 2020-06-15 Completed Universit y of Vaccine Quad .5 mL 00:00:00 [facility] 6+ MO Branch Pneumococcal 2020-06-15 Completed University o f Polysaccharide, 00:00:00 [place] [facility] ical PPSV23 (PNEUMOVAX) Branch Influenza Virus 2020-06-15 Completed Universit y of Vaccine Quad .5 mL 00:00:00 [place] [facility] 6+ MO [facility] Vital Signs Vital Name Observation Time Observation Value Comments Source Systolic blood 2022-07-19 22:01:00 145 mm[Hg] Univer sity of pressure [facility] Diastolic blood 2022-07-19 22:01:00 73 mm[Hg] Unive rsity of pressure [facility] Heart rate 2022-07-19 22:01:00 91 /min [facility] Respiratory rate 2022-07-19 22:01:00 15 /min [facility] Oxygen saturation in 2022-07-19 22:01:00 92 /min [facility] Arterial blood by [facility] Pulse oximetry [facility] Body temperature 2022-07-19 19:11:00 36.72 [facility] 2022-07-19 19:11:00 111.585 kg [facility] BMI 2022-07-19 19:11:00 40.94 kg/m2 [facility] Systolic blood 2022-07-16 16:47:00 139 mm[Hg] Univer sity of pressure [facility] Diastolic blood 2022-07-16 16:47:00 78 mm[Hg] Unive rsity of pressure [place] [facility] Heart rate 2022-07-16 16:45:00 83 /min [facility] [place] [facility] Respiratory rate 2022-07-16 16:45:00 22 /min [facility] ersity [facility] [place] [facility] Body height 2022-07-16 16:45:00 165.1 cm [facility] [place] [facility] Body weight 2022-07-16 16:45:00 111.585 kg [facility] [place] [facility] BMI 2022-07-16 16:45:00 40.94 kg/m2 [facility] [place] [facility] Oxygen saturation in 2022-07-16 16:45:00 93 /min [facility] of Arterial blood by [place] [facility] Pulse oximetry Branch Systolic blood 2022-06-10 20:16:00 138 mm[Hg] Univer sity of pressure [place] [facility] Diastolic blood 2022-06-10 20:16:00 72 mm[Hg] Unive rsity of pressure [facility] Heart rate 2022-06-10 20:16:00 84 /min [facility] [place] [facility] Body weight 2022-06-10 20:16:00 111.993 kg [facility] [place] [facility] BMI 2022-06-10 20:16:00 41.09 kg/m2 [facility] [place] [facility] Oxygen saturation in 2022-06-10 20:16:00 95 /min University of Arterial blood by [facility] ashley Pulse oximetry Branch Systolic blood 2022-06-04 16:31:00 138 mm[Hg] Univer sity of pressure [place] [facility] Diastolic blood 2022-06-04 16:31:00 80 mm[Hg] Unive rsity of pressure [facility] Heart rate 2022-06-04 16:00:00 95 /min [facility] [place] [facility] Body temperature 2022-06-04 16:00:00 36.94 Jeanne Univ ersity [facility] [place] [facility] Body height 2022-06-04 16:00:00 165.1 cm [facility] [place] [facility] Body weight 2022-06-04 16:00:00 111.131 kg [facility] [place] [facility] BMI 2022-06-04 16:00:00 40.77 kg/m2 [facility] [place] [facility] Oxygen saturation in 2022-06-04 16:00:00 95 /min [facility] of Arterial blood by [place] [facility] Pulse oximetry Branch Systolic blood 2022-05-29 18:11:00 161 mm[Hg] Univer sity of pressure [place] [facility] Diastolic blood 2022-05-29 18:11:00 78 mm[Hg] Unive rsity of pressure [place] [facility] Heart rate 2022-05-29 18:11:00 89 /min [facility] [place] [facility] Respiratory rate 2022-05-29 18:11:00 20 /min Univ ers[facility] [place] [facility] Oxygen saturation in 2022-05-29 18:11:00 98 /min University of Arterial blood by [facility] ashley Pulse oximetry Branch Body temperature 2022-05-29 15:16:00 37.06 Jeanne [facility] ers[facility] [place] [facility] Body height 2022-05-29 15:16:00 165.1 cm [facility] [place] [facility] Body weight 2022-05-29 15:16:00 113.399 kg [facility] [place] [facility] BMI 2022-05-29 15:16:00 41.60 kg/m2 [facility] [place] [facility] Systolic blood 2022-05-23 21:06:00 156 mm[Hg] Univer sity of pressure [place] [facility] Diastolic blood 2022-05-23 21:06:00 78 mm[Hg] Unive rsity of pressure [place] [facility] Heart rate 2022-05-23 21:06:00 87 /min [facility] [place] [facility] Body weight 2022-05-23 21:06:00 113.036 kg [facility] [place] [facility] BMI 2022-05-23 21:06:00 41.47 kg/m2 [facility] [place] [facility] Oxygen saturation in 2022-05-23 21:06:00 97 /min University of Arterial blood by [facility] ashley Pulse oximetry Branch Systolic blood 2022-05-08 17:02:00 127 mm[Hg] Univer sity of pressure [place] [facility] Diastolic blood 2022-05-08 17:02:00 77 mm[Hg] Unive rsity of pressure [place] [facility] Heart rate 2022-05-08 16:56:00 87 /min [facility] [place] [facility] Body weight 2022-05-08 16:56:00 111.131 kg [facility] [place] [facility] BMI 2022-05-08 16:56:00 40.77 kg/m2 [facility] Oxygen saturation in 2022-05-08 16:56:00 96 /min [facility] blood by [facility] Pulse oximetry Branch Procedures Procedure Date / Time Performed Performing Clinician Bozena mike COMP. METABOLIC PANEL 2022-07-19 19:57:00 Jesus Spain [facility] ([id number]) Medical [facility] CBC WITH DIFF 2022-07-19 19:57:00 Grabiel Jesus [place] o f [facility] LACTIC ACID WHOLE 2022-07-19 19:56:00 Jesus Spain [facility] BLOOD [facility] Branch XR HEEL 2+ VW LEFT 2022-07-19 19:48:20 Jesus [place] [facility] CONSENT/REFUSAL FOR 2022-07-19 19:00:48 Doctor Unassigned, No Un iversity [facility] DIAGNOSIS AND [facility] Medical [place] TREATMENT SLEEP STUDY DATA 2022-06-19 06:01:00 Doctor Unassigned, No [facility] Medical Branch LIPASE 2022-05-29 16:08:00 Daylin Mojica [facility] TROPONIN I 2022-05-29 16:08:00 Daylin Mojica [facility] COMP. METABOLIC PANEL 2022-05-29 16:08:00 [id number] Medical [place] CBC WITH DIFF 2022-05-29 16:08:00 Daylin Mojica [facility] URINALYSIS 2022-05-29 16:02:00 Daylin Mojica [facility] CONSENT/REFUSAL FOR 2022-05-29 15:11:18 Doctor Unassigned, No Un [place]ity [place] DIAGNOSIS AND [facility] Medical [place] TREATMENT POCT HEMOGLOBIN A1C 2022-05-23 21:18:00 Giovany Antoine [facility] TEST [facility] PHYSICIAN ORDERS 2022-05-08 05:01:00 Doctor Unassigned, [facility] Start End Encounter Admission Attending Care Care Encounter Source Date/Time Date/Time Type Type Clinicians Facility Department ID 2021-06-01 Emergency [facility] [id number] Univers 23:56:14 [facility] 2021-06-01 Outpatient JANAE [facility] [id number] Univers 12:13:32 BISI [facility] 2022-08-07 2022-08-07 Outpatient Hany WITT [facility] [id number] Univers 12:00:00 12:00:00 JEFFERSON copeland [facility] 2022-08-03 2022-08-03 Nurse BISI Weems 1.2.840.114 [id number] Univers 00:00:00 00:00:00 Triage Oleg Leach BRYAN 350.1.13.10 it y of [facility] 4.2.7.2.686 Sarkis as [id number] [address] 2022-07-29 2022-07-29 Refprabhjot [facility]PRES[facility] 1.2.840.114 [id number] Univers 00:00:00 00:00:00 [place] HEALTH 350.1.13.10 it y of [place] 4.2.7.2.686 Sarkis as MAURICIO?BLEA [phone] Tn dicguilherme SIMPSON 044 [facility] OFFICE [facility] 2022-07-22 2022-07-22 Viktoriya G[facility]PRESBY[facility] 1.2.840.114 [id number] Univers 00:00:00 00:00:00 Marylou HEALTH 350.1.13.10 it y of [place] 4.2.7.2.686 Sarkis as MAURICIO?BLEA [phone] Tn dicgiulherme SIMPSON 220 [facility] OFFICE [facility] 2022-07-21 2022-07-21 Telephone [place] [facility] 1.2.051.540 [id number] Univers 00:00:00 00:00:00 Claudia BRADLEY 350.1.13.10 i ty of [place].2.7.2.[place] [phone] Tn dicguilherme NAL 059 [facility] 2022-07-19 2022-07-19 Emergency X GRABIEL [facility] ERT [id number] Univers 13:12:00 16:24:00 JESUS copeland [facility] 2022-07-19 2022-07-19 Emergency GrabielPRES[facility] 1.2.209.755 [id number] Univers 13:12:00 16:24:00 Jesus BRADLEY 350.1.13.10 i ty of [place].2.7.2.[place] [id number] [facility] 084 [place] 2022-07-17 2022-07-17 Telephone [facility] 1.2.107.252 [id number] Univers 00:00:00 00:00:00 [place] HEALTH 350.1.13.10 it y of [place] 4.2.7.2.686 Sarkis as MAURICIO?BLEA [id number] [address] OFFICE [facility] 2022-07-16 2022-07-16 Office [facility] 1.2.370.255 [id number] Univers 10:30:00 11:00:00 Visit Rachell Black MIRNA 350.1.13.10 ity of [facility] 4.2.7.2.[place] [id number] [address] 2022-07-16 2022-07-16 Outpatient R RACHELL CHENG [facility] [id number] Univers 10:30:00 10:30:00 RACHELL [facility]ENG [facility] 2022-07-15 2022-07-15 [facility]phone [facility] 1.2.654.220 [id number] Univers 00:00:00 00:00:00 [facility] 350.1.13.10 it y of [place] 4.2.7.2.686 [place]is as MAURICIO?BLEA [id number] [address] OFFICE [facility] 2022-07-14 2022-07-14 Telephone [facility] 1.2.756.358 [id number] Univers 00:00:00 00:00:00 Claudia L KEITHTON 350.1.13.10 i ty of [place].7.2.[place] [phone] [facility] 059 [facility] 2022-07-07 2022-07-07 Telephone [facility] 1.2.352.599 [id number] Univers 00:00:00 00:00:00 Claudia L KEITHTON 350.1.13.10 i ty of [facility] 4.2.7.2.686 [place] [id number] [address] 2022-07-03 2022-07-03 Outpatient R BEN [facility] [id number] Univers 11:30:00 11:30:00 ROSETTE ity of [facility] 2022-07-02 2022-07-02 Refprabhjot WittPRESBYTER[facility] 1.2.840.114 [id number] Univers 00:00:00 00:00:00 [place] [facility]ALTH 350.1.13.10 it [facility] 4.2.7.2.686 S[place]is as MAURICIO?BLEA [phone] [address] OFFICE [facility] 2022-06-30 2022-06-30 Refprabhjot WittPRESBYTERIAN [facility] 1.2.840.114 [id number] Univers 00:00:00 00:00:00 [place] HEALTH 350.1.13.10 it y [facility] 4.2.7.2.686 [place] as MAURICIO?BLEA [phone] [address] OFFICE [facility] 2022-06-30 2022-06-30 Telephone [place] [facility] 1.2.706.100 [id number] Univers 00:00:00 00:00:00 Claudia BRADLEY 350.1.13.10 i ty of [place] 4.2.7.2.[place] [phone] [address] 2022-06-25 2022-06-25 Telephone Ben [facility] 1.2.172.825 [id number] Univers 00:00:00 00:00:00 Rosette A HEALTH 350.1.13.10 i ty [facility] 4.2.7.2.686 S[place]is as MAURICIO?BLEA [phone] [address] OFFICE [facility] 2022-06-19 2022-06-19 Security System Analyst Brenda Taver[facility] 1.2 .840.114 [id number] Univers 13:00:00 13:15:00 Visit Rachell Cheng 350.1.13. 10 ity of [facility] 4.2.7.2.686 [place] [phone] [facility] [address] 2022-06-19 2022-06-19 Outpatient R MARQUIS CHENGVALesli [facility] [id number] Univers 13:00:00 13:00:00 RACHELL CHENG [facility] 2022-06-19 2022-06-19 Orders Doctor BISI 1.2.840.114 [id number] Univers 00:00:00 00:00:00 Only Unassigned, BRYAN 350.1.13.10 ity [facility] 4.2.7.2.686 Sarkis as [phone] [facility] 009 [place] 2022-06-19 2022-06-19 Refill [facility]PRES[facility] 1.2.840.114 [id number] Univers 00:00:00 00:00:00 [facility] 350.1.13.10 it y of [place] 4.2.7.2.686 Sarkis as MAURICIO?BLEA [id number] [address] MEDICAL OFFICE [facility] 2022-06-18 2022-06-18 Outpatient R [facility]ISHOAMICHELLEMAR[facility]ISMOUNT [facility] [id number] Univers 13:00:00 13:00:00 MARQUIS CHENGVALesli [facility] 2022-06-17 2022-06-17 Telephone [facility]PRES[facility] 1.2.221.423 [id number] Univers 00:00:00 00:00:00 [facility] 350.1.13.10 it y of [place] 4.2.7.2.686 [place]is as MAURICIO?BLEA [phone] [address] MEDICAL OFFICE [facility] 2022-06-16 2022-06-16 Outpatient S[facility] [id number] [place] 11:44:53 11:44:53 1114 F Matt 2022-06-16 2022-06-16 Telephone [facility] 1.2.175.462 [id number] Univers 00:00:00 00:00:00 Claudia [facility] 350.1.13.10 i ty of [place] 4.2.7.2.686 [place] [facility] [phone] [place] [address] [facility] 2022-06-13 2022-06-13 Security System Analyst 2, Adc Lab [facility] 1.2.840.114 [id number] Univers 11:15:00 11:30:00 Visit Claudia Porter 350.1.13.10 ity of [facility] 4.2.7.2.[place] [id number] Tn ashley [facility] 353 [facility] 2022-06-13 2022-06-13 Outpatient R [facility] [id number] Univers 11:15:00 11:15:00 CLAUDIA copeland [facility] 2022-06-12 2022-06-12 Telephone [facility] 1.2.807.535 [id number] Univers 00:00:00 00:00:00 Claudia BRADLEY 350.1.13.10 i ty of [place] 4.2.7.2.[place] [phone] [place] [address] [facility] 2022-06-12 2022-06-12 Telephone WittPRESBYTER[facility] 1.2.522.568 [id number] Univers 00:00:00 00:00:00 [facility] 350.1.13.10 it y of [place] 4.2.7.2.686 Sarkis as MAURICIO?BLEA [phone] Tn ashley [address] OFFICE [facility] 2022-06-11 2022-06-11 Outpatient R ED[facility]ARPARKVIEW [facility] [id number] Univers 10:08:55 23:59:00 JEFFERSON copeland [facility] 2022-06-11 2022-06-11 [facility]PRES[facility] 1.2.840.114 [id number] Univers 10:08:55 23:59:00 Encounter Jefferson BRADLEY 350.1.13.10 ity of [place] 4.2.7.2.[place] [id number] [address] 2022-06-10 2022-06-10 Outpatient R CHARLOTTE [facility] [id number] Univers 14:20:00 16:26:04 CLAUDIA copeland [facility] 2022-06-10 2022-06-10 Office [facility] 1.2.840.114 [id number] Univers 14:20:00 16:26:04 Visit Claudia BRADLEY 350.1.13.10 i ty of [facility] 4.2.7.2.686 [place] [id number] Tn ashley WYNN 059 [facility] 2022-06-05 2022-06-05 Refprabhjot GaminoPRESBYTERIAN MEDICAL [facility] 1.2.840.114 [id number] Univers 00:00:00 00:00:00 Marylou HEALTH 350.1.13.10 it y [facility] 4.2.7.2.686 S[place]is as MAURICIO?BLEA [phone] [facility] CALVIN 220 [facility] OFFICE [facility] 2022-06-04 2022-06-04 Outpatient R B[facility]PARKVIEW [facility] [id number] Univers 10:30:00 11:55:43 ROSETTE [facility] 2022-06-04 2022-06-04 Office BenPRESBYTER[facility] 1.2.840.114 [id number] Univers 10:30:00 11:55:43 Visit Rosette A HEALTH 350.1.13.10 i ty of [place] 4.2.7.2.686 Sarkis as MAURICIO?BLEA [phone] [facility] 044 [facility] OFFICE [facility] 2022-06-04 2022-06-04 Refprabhjot WittPRESBYTERIAN MED[facility] 1.2.840.114 [id number] Univers 00:00:00 00:00:00 [place] HEALTH 350.1.13.10 it y of [place] 4.2.7.2.686 Sarkis as MAURICIO?BLEA [phone] [facility] 044 [facility] OFFICE [facility] 2022-05-29 2022-05-29 Emergency X [facility] ERT [id number] Univers 10:17:00 14:59:00 DAYLIN francoiraida [facility] 2022-05-29 2022-05-29 Emergency [facility] 1.2.868.546 [id number] Univers 10:17:00 14:59:00 Daylin Prabhakar MIRNA 350.1.13.10 ity of [facility] 4.2.7.2.686 [facility] [id number] [address] 2022-05-29 2022-05-29 Telephone EduarPRESBYTER[facility] 1.2.620.200 [id number] Univers 00:00:00 00:00:00 [place] HEALTH 350.1.13.10 it y of [place] 4.2.7.2.686 Sarkis as MAURICIO?BLEA [phone] Tn ashley [address] MEDICAL OFFICE [facility] 2022-05-29 2022-05-29 Refill EduarPRESBYTERIAN [facility] 1.2.840.114 [id number] Univers 00:00:00 00:00:00 [place] HEALTH 350.1.13.10 it [facility] 4.2.7.2.686 Sarkis as MAURICIO?BLEA [phone] Tn ashley [address] OFFICE [facility] 2022-05-27 2022-05-27 Telephone WittPRESBYTERIAN [facility] 1.2.759.944 [id number] Univers 00:00:00 00:00:00 [place] HEALTH 350.1.13.10 it y of [place] 4.2.7.2.686 Sarkis as MAURICIO?BLEA [phone] [address] OFFICE [facility] 2022-05-27 2022-05-27 Telephone Team, [facility] BISI 1.2.840.114 [id number] Univers 00:00:00 00:00:00 Health BRYAN 350.1.13.10 it y of [facility] 4.2.7.2.686 [place] [id number] [address] 2022-05-23 2022-05-23 Outpatient R ELINA [facility] [id number] Univers 16:30:00 17:15:04 GIOVANY copeland of [facility] 2022-05-23 2022-05-23 Office [facility]inaPRES[facility] 1.2.769.067 [id number] Univers 16:30:00 17:15:04 Visit Giovany [facility] 350.1.13.10 it y of [place] 4.2.7.2.686 Sarkis as MAURICIO?BLEA [id number] Tn ashley CASTLE 220 [facility] OFFICE [facility] 2022-05-23 2022-05-23 Outpatient R ELINA [facility] [id number] Univers 16:30:00 16:30:00 GIOVANY copeland [facility] 2022-05-23 2022-05-23 Viktoriya Gamino [facility] 1.2.840.114 [id number] Univers 00:00:00 00:00:00 Marylou HEALTH 350.1.13.10 it y of [place] 4.2.7.2.686 Sarkis as MAURICIO?BLEA [phone] Tn ashley SIMPSON [address] MEDICAL OFFICE [facility] 2022-05-23 2022-05-23 Refprabhjot RoldanersPRESBYTERIAN MEDICAL [facility] 1.2.840.114 [id number] Univers 00:00:00 00:00:00 [place] HEALTH 350.1.13.10 it y of [place] 4.2.7.2.686 Sarkis as MAURICIO?BLEA [phone] [facility]uilherme [place] 044 [facility] OFFICE [facility] 2022-05-20 2022-05-20 Refprabhjot WittPRESBYTERIAN MED[facility] 1.2.840.114 [id number] Univers 00:00:00 00:00:00 [place] HEALTH 350.1.13.10 it y of [place] 4.2.7.2.686 Sarkis as MAURICIO?BLEA [phone] [facility] CORRINE [address] [facility] 2022-05-08 2022-05-08 Outpatient Hany WITT [facility] [id number] Univers 12:00:00 12:18:22 JEFFERSON iraida [facility] 2022-05-08 2022-05-08 Office WittPRESBYTER[facility] 1.2.840.114 [id number] Univers 12:00:00 12:18:22 Visit [facility] 350.1.13.10 it y of [place] 4.2.7.2.686 Sarkis as MAURICIO?BLEA [id number] [address] 2022-05-08 2022-05-08 Outpatient Hany [facility]PAR[facility] [id number] Univers 12:00:00 12:00:00 JEFFERSON copeland [facility] 2022-05-08 2022-05-08 Telephone WittPRESBYTER[facility] 1.2.608.415 [id number] Univers 00:00:00 00:00:00 [place] HEALTH 350.1.13.10 it y of [place] 4.2.7.2.686 Sarkis as MAURICIO?BLEA [phone] [facility] [address] MEDICAL OFFICE [facility] 2022-05-08 2022-05-08 Orders Doctor BISI 1.2.840.114 [id number] Univers 00:00:00 00:00:00 Only Unassigned, BRYAN 350.1.13.10 ity of [facility] 4.2.7.2.686 Sarkis as [id number] [address] 2022-05-07 2022-05-07 Viktoriya WittPRESBYTERIAN MED[facility] 1.2.840.114 [id number] Univers 00:00:00 00:00:00 [place] HEALTH 350.1.13.10 it y of [place] 4.2.7.2.686 Sarkis as MAURICIO?BLEA [id number] [facility] [address] MEDICAL OFFICE [facility] 2022-05-06 2022-05-06 Viktoriya WittPRESBYTERIAN MED[facility] 1.2.840.114 [id number] Univers 00:00:00 00:00:00 [place] [facility]ALTH 350.1.13.10 it [facility] 4.2.7.2.686 Sarkis as MAURICIO?BLEA [id number] [facility] [address] MEDICAL OFFICE [facility] 2022-04-29 2022-04-29 Viktoriya GaminoPRESBYTERIAN MEDICAL [facility] 1.2.840.114 [id number] Univers 00:00:00 00:00:00 Marylou HEALTH 350.1.13.10 it y of [place] 4.2.7.2.686 Sarkis as MAURICIO?BLEA [id number] [facility] [address] MEDICAL OFFICE [facility] 2022-04-24 2022-04-24 Outpatient Hany WITT [facility] [id number] Univers 00:00:00 00:00:00 JEFFERSON ity [facility] 2022-04-24 2022-04-24 Viktoriya WittPRESBYTERIAN MED[facility] 1.2.840.114 [id number] Univers 00:00:00 00:00:00 Jefferson HEALTH 350.1.13.10 it y of [place] 4.2.7.2.686 Sarkis as MAURICIO?BLEA [phone] Tn ashley [address] OFFICE [facility] 2022-04-23 2022-04-23 [facility]Plains [facility] 1.2.840.114 [id number] Univers 00:00:00 00:00:00 [place] HEALTH 350.1.13.10 it y of [place] 4.2.7.2.686 Sarkis as MAURICIO?BLEA [phone] [address] OFFICE [facility] 2022-04-23 2022-04-23 [facility] 1.2.840.114 [id number] Univers 00:00:00 00:00:00 [place] HEALTH 350.1.13.10 it y of [place] 4.2.7.2.686 Sarkis as MAURICIO?BLEA [id number] [address] OFFICE [facility] 2022-04-09 2022-04-09 [facility] 1.2.840.114 [id number] Univers 00:00:00 00:00:00 Holden HEALTH 350.1.13.10 it y of [place] 4.2.7.2.686 Sarkis as MAURICIO?BLEA [id number] [address] OFFICE [facility] 2022-04-08 2022-04-08 Cornish EduarPRESBYTER[facility] 1.2.698.024 [id number] Univers 00:00:00 00:00:00 Holden HEALTH 350.1.13.10 it y of [place] 4.2.7.2.686 Sarkis as MAURICIO?BLEA [id number] [address] OFFICE [facility] 2022-03-31 2022-03-31 [facility] 1.2.840.114 [id number] Univers 00:00:00 00:00:00 Holden HEALTH 350.1.13.10 it y of [place] 4.2.7.2.686 Sarkis as MAURICIO?BLEA [phone] [address] OFFICE [facility] 2022-03-27 2022-03-27 Outpatient R [facility]ARPARKVIEW [facility] [id number] Univers 13:20:00 13:20:00 JEFFERSON ity [facility] 2022-03-26 2022-03-26 Refprabhjot WittPRESBYTERIAN [facility] 1.2.840.114 [id number] Univers 00:00:00 00:00:00 Jefferson HEALTH 350.1.13.10 it y of [place] 4.2.7.2.686 Sarkis as MAURICIO?BLEA [phone] Tn ashley [place] 044 [facility] OFFICE [facility] 2022-03-11 2022-03-11 Refprabhjot WittPRESBYTERIAN MED[facility] 1.2.840.114 [id number] Univers 00:00:00 00:00:00 Jefferson HEALTH 350.1.13.10 it y of [place] 4.2.7.2.686 Sarkis as MAURICIO?BLEA [phone] [facility] CORRINE 044 [facility] OFFICE [facility] 2022-03-06 2022-03-06 Telephone WittPRESBYTERIAN [facility] 1.2.907.552 [id number] Univers 00:00:00 00:00:00 Jefferson HEALTH 350.1.13.10 it y of [place] 4.2.7.2.686 Sarkis as MAURICIO?BLEA 545.5765368 Tn ashley [place] 044 [facility] OFFICE [facility] 2022-03-01 2022-03-01 [facility] Centerprabhjot WittPRESBYTER[facility] 1.2.840.114 [id number] Univers 00:00:00 00:00:00 Jefferson HEALTH 350.1.13.10 it y of [place] 4.2.7.2.686 Sarkis as MAURICIO?BLEA [phone] Tn ashley SIM[place] 044 [facility] OFFICE [facility] 2022-02-27 2022-02-27 Refprabhjot GaminoPRESBYTERIAN MEDICAL [facility] 1.2.840.114 [id number] Univers 00:00:00 00:00:00 Marylou HEALTH 350.1.13.10 it y of [place] 4.2.7.2.686 Sarkis as MAURICIO?BLEA [phone] [facility] Centerguilherme SIMPSON [address] MEDICAL OFFICE [facility] 2022-02-26 2022-02-26 Telephone ElinaPRESBYTERIAN [facility] 1.2.840.114 [id number] Univers 00:00:00 00:00:00 [facility] 350.1.13.10 it y of [place] 4.2.7.2.686 Sarkis as MAURICIO?BLEA [phone] Tn ashley SIM[place]ON 220 [facility] OFFICE [facility] 2022-02-24 2022-02-24 Telephone EduarPRESBYTERIAN [facility] [id number] Univers 00:00:00 00:00:00 [facility] 350.1.13.10 it y of [place] 4.2.7.2.686 Sarkis as MAURICIO?BLEA [phone] Tn ashley SIMPSON 044 [facility] OFFICE [facility] 2022-02-24 2022-02-24 Refill [facility] 1.2.840.114 [id number] Univers 00:00:00 00:00:00 [facility] 350.1.13.10 it y of [place] 4.2.7.2.686 Sarkis as MAURICIO?BLEA [phone] [facility] [address] 2022-02-21 2022-02-21 Outpatient Hany [facility]GA [facility] [id number] Univers 10:45:00 10:45:00 ARMINDA [facility] 2022-02-11 2022-02-11 [facility] [id number] Univers 00:00:00 00:00:00 [facility] 350.1.13.10 it y of [place] 4.2.7.2.686 Sarkis as MAURICIO?BLEA [phone] Tn ashley [address] 2022-02-10 2022-02-10 Telephone [facility] [id number] Univers 00:00:00 00:00:00 [facility] 350.1.13.10 it y of [place] 4.2.7.2.686 Sarkis as MAURICIO?BLEA [phone] [facility] [address] OFFICE [facility] 2022-02-05 2022-02-05 [facility]patient [facility] [id number] Univers 09:45:00 10:02:08 [facility] 2022-02-05 2022-02-05 Office [facility] 1.2.840.114 [id number] Univers 09:45:00 10:02:08 Visit [facility] 350.1.13.10 it y of [place] 4.2.7.2.686 Sarkis as MAURICIO?BLEA [phone] Tn dicguilherme SIMPSON [address] [facility] 2022-02-05 2022-02-05 Refill [facility] 1.2.840.114 [id number] Univers 00:00:00 00:00:00 [facility] 350.1.13.10 it y of [place] 4.2.7.2.686 Sarkis as MAURICIO?BLEA [phone] [facility] CALVIN [address] [facility] 2022-02-05 2022-02-05 Refprabhjot WittPRES[facility] 1.2.840.114 [id number] Univers 00:00:00 00:00:00 [facility] 350.1.13.10 it y of [place] 4.2.7.2.686 Sarkis as MAURICIO?BLEA [phone] [facility] [address] [facility] 2022-02-05 2022-02-05 Telephone MariannPRES[facility] 1.2.119.701 [id number] Univers 00:00:00 00:00:00 Noemi S [facility] 350.1.13.10 [facility] 4.2.7.2.686 Sarkis as MAURICIO?BLEA [phone] [facility] CORRINE [address] [facility] 2022-02-05 2022-02-05 Orders Doctor BISI 1.2.840.114 [id number] Univers 00:00:00 00:00:00 Only Unassigned, BRYAN 350.1.13.10 ity of [facility] 4.2.7.2.686 Sarkis as [phone] [facility] [address] 2022-01-31 2022-01-31 Refill [facility] RANCHO 1.2.403.855 [id number] Univers 00:00:00 00:00:00 Giovany HEALTH 350.1.13.10 it y of [place] 4.2.7.2.686 Sarkis as MAURICIO?BLEA [phone] [facility] [address] MEDICAL OFFICE BUILDING 2022-01-27 2022-01-27 [facility]ot CristhianPRES[facility] 1.2.840.114 [id number] Univers 00:00:00 00:00:00 Andrea HEALTH 350.1.13.10 it y of [place] 4.2.7.2.686 Sarkis as MAURICIO?BLEA [phone] Tn ashely CASTLE [address] [facility] 2022-01-26 2022-01-26 [facility] Centerprabhjot AntoinePRESBYTERIAN [facility] 1.2.254.825 [id number] Univers 00:00:00 00:00:00 [facility] 350.1.13.10 it y of [place] 4.2.7.2.686 Sarkis as MAURICIO?BLEA [phone] Tn ashley [facility] [address] [facility] 2022-01-24 2022-01-24 Outpatient R [facility] [id number] Univers 15:30:00 15:30:00 [facility] 2022-01-24 2022-01-24 Outpatient R [facility] [id number] Univers 15:30:00 15:30:00 [facility] 2022-01-13 2022-01-13 Telephone [facility] 1.2.570.530 [id number] Univers 00:00:00 00:00:00 Holden HEALTH 350.1.13.10 it y of [place] 4.2.7.2.686 Sarkis as MAURICIO?BLEA [phone] Tn ashley [facility] OFFICE [facility] 2022-01-10 2022-01-10 Outpatient R [facility] [id number] Univers 15:30:00 15:30:00 [facility] 2022-01-09 2022-01-09 Outpatient R [facility]PAR[facility] [id number] Univers 10:30:00 10:37:24 [facility] 2022-01-09 2022-01-09 Office [facility]nPRES[facility] 1.2.840.114 [id number] Univers 10:30:00 10:37:24 Visit [facility] 350.1.13.10 it y of [place] 4.2.7.2.686 Sarkis as MAURICIO?BLEA [phone] Tn ashley SIMPSON 198 [facility] OFFICE [facility] 2022-01-09 2022-01-09 Outpatient Hany [facility] [id number] Univers 10:30:00 10:37:24 [facility] 2022-01-02 2022-01-02 Office [facility] 1.2.840.114 [id number] Univers 10:30:00 10:45:00 Visit [facility] 350.1.13.10 it y of [place] 4.2.7.2.686 Sarkis as MAURICIO?BLEA [phone] Tn ashley SIMPSON [address] [facility] 2022-01-02 2022-01-02 Outpatient Hany [facility] [id number] Univers 10:30:00 10:30:00 [facility] 2022-01-02 2022-01-02 Outpatient Hany [facility] [id number] Univers 10:30:00 10:30:00 [facility] 2021-12-31 2021-12-31 [facility] Centerprabhjot WittPRESBYTER[facility] 1.2.840.114 [id number] Univers 00:00:00 00:00:00 Holden HEALTH 350.1.13.10 it y of [place] 4.2.7.2.686 Sarkis as MAURICIO?BLEA [phone] Tn ashley SIMPSON [address] [facility] 2021-12-31 2021-12-31 Viktoriya WittPRESBYTERIAN MED[facility] 1.2.840.114 [id number] Univers 00:00:00 00:00:00 Jefferson HEALTH 350.1.13.10 it y of [place] 4.2.7.2.686 Sarkis as MAURICIO?BLEA [phone] Tn ashley SIMPSON [address] [facility] 2021-12-26 2021-12-26 Outpatient Hany [facility] [id number] Univers 14:00:00 14:37:45 [facility] 2021-12-26 2021-12-26 Office [facility]nPRES[facility] 1.2.840.114 [id number] Univers 14:00:00 14:37:45 Visit Noemi Garcia [facility] 350.1.13.10 it y of [place] 4.2.7.2.686 Sarkis as MAURICIO?BLEA [phone] Me dical CORRINEEY 198 [facility] OFFICE [facility] 2021-12-26 2021-12-26 Telephone [facility] 1.2.840.114 [id number] Univers 00:00:00 00:00:00 Giovany H HEALTH 350.1.13.10 it y of [place] 4.2.7.2.686 Sarkis as MAURICIO?BLEA [phone] Me dical KNEY 220 [facility] OFFICE [facility] 2021-12-26 2021-12-26 Telephone [facility] 1.2.840.114 [id number] Univers 00:00:00 00:00:00 Giovany HEALTH 350.1.13.10 it y of [place] 4.2.7.2.686 Sarkis as MAURICIO?BLEA [phone] Me dical CALVIN 220 [facility] OFFICE [facility] 2021-12-25 2021-12-25 Refill EduarPRESBYTER[facility] 1.2.840.114 [id number] Univers 00:00:00 00:00:00 Jefferson HEALTH 350.1.13.10 it y of [place] 4.2.7.2.686 Sarkis as MAURICIO?BLEA [phone] Me dicguilherme SIMPSON [address] [facility] 2021-12-19 2021-12-19 Outpatient R [facility] [id number] Univers 10:15:00 11:07:04 DILAN copeland of [facility] 2021-12-19 2021-12-19 Office IvanPRES[facility] 1.2.198.389 [id number] Univers 10:15:00 11:07:04 Visit Dilan [facility] 350.1.13.10 it y of [place] 4.2.7.2.686 Sarkis as MAURICIO?BLEA [phone] Me dical CALVIN 198 [facility] OFFICE [facility] 2021-12-17 2021-12-17 Telephone [facility]PRES[facility]TER[facility] 1.2.164.818 [id number] Univers 00:00:00 00:00:00 [place] HEALTH 350.1.13.10 it y of [place] 4.2.7.2.686 Sarkis as MAURICIO?BLEA [phone] Tn ashley SIMPSON 044 [facility] OFFICE [facility] 2021-12-12 2021-12-12 Outpatient Hany [facility] [id number] Univers 10:15:00 11:10:34 [facility] 2021-12-12 2021-12-12 Office [facility] 1.2.840.114 [id number] Univers 10:15:00 11:10:34 Visit Noemi [facility] 350.1.13.10 it y of [place] 4.2.7.2.686 Sarkis as MAURICIO?BLEA [phone] Tn ashley SIMPSON [address] [facility] 2021-12-12 2021-12-12 Outpatient Hany [facility] [id number] Univers 10:15:00 11:10:34 [facility] 2021-12-12 2021-12-12 Outpatient Hany [facility] [id number] [facility] 10:15:00 10:15:00 [facility] 2021-12-11 2021-12-11 Telephone WittPRESBYTER[facility] 1.2.897.872 [id number] Univers 00:00:00 00:00:00 Jefferson [facility] 350.1.13.10 it y of [place] 4.2.7.2.686 Sarkis as MAURICIO?BLEA [phone] Tn ashley SIMPSON [address] [facility] 2021-12-10 2021-12-10 Security System Analyst Lab, Ang - Db [facility] 1.2.840.1 14 [id number] Univers 10:00:00 10:15:00 Visit Jefferson Witt 350.1.13.10 ity of [place] 4.2.7.2.686 Sarkis as MAURICIO?BLEA [phone] Tn ashley SIMPSON [address] [facility] 2021-12-10 2021-12-10 Outpatient R [facility] [id number] Univers 10:00:00 10:00:00 JEFFERSON [facility] 2021-12-10 2021-12-10 Office Edu[facility]PRES[facility] 1.2.840.114 [id number] Univers 09:45:00 10:00:00 Visit [facility] 350.1.13.10 it y of [place] 4.2.7.2.686 Sarkis as MAURICIO?BLEA [phone] Tn dicguilherme SIMPSON 044 [facility] OFFICE [facility] 2021-12-10 2021-12-10 Outpatient R [facility]PARK[facility] [id number] Univers 09:45:00 09:45:00 [facility] 2021-12-05 2021-12-05 Office WaitePRESBYTER[facility] 1.2.840.114 [id number] Univers 14:15:00 14:30:00 Visit [facility] 350.1.13.10 it y of [place] 4.2.7.2.686 Sarkis as MAURICIO?BLEA [phone] Tn shiraguilherme SIMPSON 198 [facility] OFFICE [facility] 2021-12-05 2021-12-05 Outpatient R [facility] [id number] Univers 14:15:00 14:15:00 [facility] 2021-12-05 2021-12-05 Outpatient Hany [facility] [id number] Univers 14:15:00 14:15:00 [facility] 2021-12-05 2021-12-05 Orders Doctor MATHEWS 1.2.840.114 [id number] Univers 00:00:00 00:00:00 Only Unassigned, BRYAN 350.1.13.10 ity of [place] [facility] 4.2.7.2.686 Sarkis as [phone] [address] 2021-12-02 2021-12-02 Refprabhjot Witt [facility] 1.2.840.114 [id number] Univers 00:00:00 00:00:00 [facility] 350.1.13.10 it y of [place] 4.2.7.2.686 Sarkis as MAURICIO?BLEA [phone] Tn ashley SIMPSON 044 [facility] OFFICE [facility] 2021-12-01 2021-12-01 Viktoriya Gamino [facility] 1.2.840.114 [id number] Univers 00:00:00 00:00:00 Marylou HEALTH 350.1.13.10 it y of [place] 4.2.7.2.686 Sarkis as MAURICIO?BLEA [phone] Tn dicguilherme SIMPSON [address] MEDICAL OFFICE BUILDING 2021-12-01 2021-12-01 Refill Eduar NVMAGALYS 1.2.840.114 [id number] Univers 00:00:00 00:00:00 [place] HEALTH 350.1.13.10 it y of [place] 4.2.7.2.686 Sarkis as MAURICIO?BLEA [phone] Tn ashley SIMPSON [address] MEDICAL OFFICE [facility] 2021-11-27 2021-11-27 Orders Doctor BISI 1.2.840.114 [id number] Univers 00:00:00 00:00:00 Only Unassigned, BRYAN 350.1.13.10 ity of [place] [facility] 4.2.7.2.686 Sarkis as [phone] [address] 2021-11-26 2021-11-26 Telephone MariannPRESBY[facility] 1.2.030.382 [id number] Univers 00:00:00 00:00:00 Noemi S HEALTH 350.1.13.10 it y of [place] 4.2.7.2.686 Sarkis as MAURICIO?BLEA [phone] Tn ashley SIMPSON [address] MEDICAL OFFICE [facility] 2021-11-25 2021-11-25 Telephone Eduar [facility] 1.2.221.169 [id number] Univers 00:00:00 00:00:00 [place] HEALTH 350.1.13.10 it y of [place] 4.2.7.2.686 Sarkis as MAURICIO?BLEA [phone] Tn ashley SIMPSON [address] MEDICAL OFFICE [facility] 2021-11-25 2021-11-25 Telephone [facility]PRES[facility] 1.2.603.348 [id number] Univers 00:00:00 00:00:00 [place] HEALTH 350.1.13.10 it y of [place] 4.2.7.2.686 Sarkis as MAURICIO?BLEA [phone] Tn ashley SIMPSON [address] MEDICAL OFFICE [facility] 2021-11-20 2021-11-20 Telephone [facility]itePRESBY[facility] 1.2.476.996 [id number] Univers 00:00:00 00:00:00 Noemi Garcia HEALTH 350.1.13.10 it y of [place] 4.2.7.2.686 Sarkis as MAURICIO?BLEA [phone] Tn ashley SIMPSON 198 [facility] OFFICE [facility] 2021-11-19 2021-11-19 Office [facility] 1.2.840.114 [id number] Univers 13:30:00 13:45:00 Visit Noemi [facility] 350.1.13.10 it y of [place] 4.2.7.2.686 Sarkis as MAURICIO?BLEA [phone] Tn ashley SIMPSON 198 [facility] OFFICE [facility] 2021-11-19 2021-11-19 Outpatient R [facility] [id number] Univers 13:30:00 13:30:00 [facility] 2021-11-13 2021-11-13 Office [facility]PRES[facility] 1.2.840.114 [id number] Univers 09:45:00 09:54:37 Visit [facility] 350.1.13.10 it y of [place] 4.2.7.2.686 Sarkis as MAURICIO?BLEA [phone] Tn ashley SIMPSON 044 [facility] OFFICE [facility] 2021-11-13 2021-11-13 Outpatient Hany [facility] [id number] Univers 09:45:00 09:54:37 [facility] 2021-11-13 2021-11-13 Outpatient Hany [facility] [id number] Univers 09:45:00 09:45:00 [facility] 2021-11-13 2021-11-13 Outpatient Hany [facility] [id number] Univers 09:45:00 09:45:00 [facility] 2021-11-12 2021-11-12 Refill [facility]PRES[facility] 1.2.840.114 [id number] Univers 00:00:00 00:00:00 [facility] 350.1.13.10 it y of [place] 4.2.7.2.686 Sarkis as PROFESSIO [phone] Tn ashley WYNN [address] [place] [address] OFFICE [facility] ONE 2021-11-11 2021-11-11 [facility] Centerprabhjot GaminoPRESBYTERIAN MED[facility] 1.2.840.114 [id number] Univers 00:00:00 00:00:00 Marylou HEALTH 350.1.13.10 it y of [place] 4.2.7.2.686 Sarkis as MAURICIO?BLEA [phone] Tn ashley SIMPSON 220 [facility] OFFICE BUILDING 2021-11-04 2021-11-04 [facility] WittPRES[facility] 1.2.840.114 [id number] Univers 00:00:00 00:00:00 [place] HEALTH 350.1.13.10 it y of [place] 4.2.7.2.686 Sarkis as MAURICIO?BLEA [phone] Tn ashley SIMPSON [address] [place] [address] OFFICE [facility] 2021-11-01 2021-11-01 [facility] Centerprabhjot GaminoPRESBYTERIAN MED[facility] 1.2.840.114 [id number] Univers 00:00:00 00:00:00 Marylou HEALTH 350.1.13.10 it y of [place] 4.2.7.2.686 Sarkis as MAURICIO?BLEA [phone] [facility]n [facility] 220 [facility] OFFICE [facility] 2021-10-31 2021-10-31 [facility] EduarPRESBYTER[facility] 1.2.840.114 [id number] Univers 00:00:00 00:00:00 [place] HEALTH 350.1.13.10 it y of [place] 4.2.7.2.686 Sarkis as MAURICIO?BLEA [phone] [address] OFFICE [facility] 2021-10-21 2021-10-21 Telephone [facility]PRESBYTER[facility] 1.2.014.683 [id number] Univers 00:00:00 00:00:00 [place] HEALTH 350.1.13.10 it y of [place] 4.2.7.2.686 Sarkis as MAURICIO?BLEA [phone] [address] OFFICE BUILDING 2021-10-10 2021-10-10 Telephone MariannPRESBYTER[facility] 1.2.428.989 [id number] Univers 00:00:00 00:00:00 Noemi S HEALTH 350.1.13.10 it y of [place] 4.2.7.2.686 Sarkis as MAURICIO?BLEA [phone] Tn dical CALVIN 198 [facility] OFFICE [facility] 2021-10-07 2021-10-07 Outpatient R EDUAR [facility] [id number] Univers 12:15:00 12:15:00 JEFFERSON [facility] 2021-10-02 2021-10-02 Outpatient Hany [facility] [id number] Univers 14:45:00 15:30:28 [facility] 2021-10-02 2021-10-02 Office MariannPRES[facility] 1.2.840.114 [id number] Univers 14:45:00 15:15:00 Visit Noemi [facility] 350.1.13.10 it y of [place] 4.2.7.2.686 Sarkis as MARUICIO?BLEA [phone] Tn shiraguilherme SIMPSON [address] [facility] 2021-10-02 2021-10-02 Outpatient Hany [facility] [id number] Univers 14:45:00 14:45:00 [facility] 2021-10-02 2021-10-02 Refill EduarPRESBY[facility] 1.2.840.114 [id number] Univers 00:00:00 00:00:00 [facility] 350.1.13.10 it y of [place] 4.2.7.2.686 Sarkis as PROFESSIO [phone] Tn ashley TIANNA 044 [facility] ONE 2021-09-20 2021-09-20 Security System Analyst Lab, Ang - [facility] 1.2.840.1 14 [id number] Univers 10:30:00 10:45:00 Visit Jefferson Witt 350.1.13.10 ity of [place] 4.2.7.2.686 Sarkis as MAURICIO?BLEA [phone] Me dical CALVIN 353 [facility] OFFICE [facility] 2021-09-20 2021-09-20 Outpatient R [facility] [id number] Univers 10:30:00 10:30:00 [facility] 2021-09-19 2021-09-19 Outpatient R [facility] [id number] Univers 10:30:00 10:30:00 ity [facility] 2021-09-17 2021-09-17 Telephone [facility]PRES[facility] 1.2.464.050 [id number] Univers 00:00:00 00:00:00 [facility] 350.1.13.10 it y of [place] 4.2.7.2.686 Sarkis as MAURICIO?BLEA [phone] [address] OFFICE [facility] 2021-09-17 2021-09-17 Telephone [facility]PRES[facility] 1.2.286.873 [id number] Univers 00:00:00 00:00:00 [facility] 350.1.13.10 it y of [place] 4.2.7.2.686 Sarkis as MAURICIO?BLEA [phone] [address] 2021-09-13 2021-09-13 Outpatient Hany [facility] [id number] Univers 10:30:00 10:30:00 [facility] 2021-09-12 2021-09-12 Outpatient Hany ROLDANWITTPARKVIEW [facility] [id number] Univers 12:00:00 12:00:00 [facility] 2021-09-12 2021-09-12 Office [facility] 1.2.840.114 [id number] Univers 10:15:00 10:30:00 Visit [facility] 350.1.13.10 [facility] 4.2.7.2.686 Sarkis as MAURICIO?BLEA [phone] [address] 2021-09-12 2021-09-12 Outpatient Hany [facility] [id number] Univers 10:15:00 10:15:00 [facility] 2021-09-12 2021-09-12 Outpatient Hany [facility]ANWITT [facility] [id number] Univers 10:15:00 10:15:00 [facility] 2021-09-12 2021-09-12 Telephone [facility]inaPRES[facility] 1.2.840.114 [id number] Univers 00:00:00 00:00:00 Giovany [facility] 350.1.13.10 it y of [place] 4.2.7.2.686 Sarkis as MAURICIO?BLEA [phone] [facility] 220 [facility] OFFICE [facility] 2021-09-10 2021-09-10 Outpatient Hany [facility] [id number] Univers 10:30:00 11:01:21 [facility] 2021-09-10 2021-09-10 Office [facility] 1.2.840.114 [id number] Univers 10:30:00 11:01:21 Visit [facility] 350.1.13.10 it y of [place] 4.2.7.2.686 Sarkis as MAURICIO?BLEA [phone] [facility] [address] [facility] 2021-09-10 2021-09-10 Outpatient Hany [facility] [id number] Univers 10:30:00 11:01:21 [facility] 2021-09-10 2021-09-10 Outpatient Hany [facility] [id number] Univers 10:30:00 10:30:00 [facility] 2021-09-10 2021-09-10 Outpatient Hany [facility] [id number] Univers 10:30:00 10:30:00 [facility] 2021-09-10 2021-09-10 Outpatient Hany [facility] [id number] Univers 10:30:00 10:30:00 [facility] 2021-09-10 2021-09-10 Outpatient Hany [facility] [id number] Univers 10:30:00 10:30:00 [facility] 2021-09-04 2021-09-04 Viktoriya WittPRES[facility] 1.2.840.114 [id number] Univers 00:00:00 00:00:00 [facility] 350.1.13.10 it y of [place] 4.2.7.2.686 Sarkis as MAURICIO?BLEA [phone] [facility] 044 [facility] OFFICE [facility] 2021-09-03 2021-09-03 Emergency X [facility] ERT [id number] Univers 14:14:00 16:13:00 PRAVEEN ity of [facility] 2021-09-03 2021-09-03 Emergency [facility] 1.2.244.367 [id number] Univers 14:14:00 16:13:00 Praveen R KEITHTAMELA 350.1.13.10 i ty of [place] 4.2.7.2.686 [place] [id number] [address] 2021-09-03 2021-09-03 Telephone [facility]PRES[facility] 1.2.407.469 [id number] Univers 00:00:00 00:00:00 [facility] 350.1.13.10 it y of [place] 4.2.7.2.686 Sarkis as MAURICIO?BLEA [phone] [address] MEDICAL OFFICE [facility] 2021-09-02 2021-09-02 Refill [facility]PRES[facility] 1.2.840.114 [id number] Univers 00:00:00 00:00:00 [facility]ALTH 350.1.13.10 it y of [place] 4.2.7.2.686 Sarkis as PROFESSIO [phone] [address] OFFICE BUILDING ONE 2021-09-02 2021-09-02 Refill WittPRES[facility] 1.2.840.114 [id number] Univers 00:00:00 00:00:00 [facility]ALTH 350.1.13.10 it y of [place] 4.2.7.2.686 Sarkis as MAURICIO?BLEA [phone] [address] MEDICAL OFFICE BUILDING 2021-08-29 2021-08-29 Office [facility]PRESBY[facility] 1.2.840.114 [id number] Univers 11:45:00 12:00:00 Visit [facility]ALTH 350.1.13.10 it y of [place] 4.2.7.2.686 Sarkis as MAURICIO?BLEA [phone] [address] OFFICE BUILDING 2021-08-29 2021-08-29 Outpatient R [facility] [id number] Univers 11:45:00 11:45:00 [facility] 2021-08-28 2021-08-28 Refill Cristhian [facility] [id number] Univers 00:00:00 00:00:00 [facility] [id number] it y of [place]har[place] [id number] Sarkis as PROFESSIO [phone] [facility] [address] OFFICE BUILDING ONE 2021-08-15 2021-08-15 Security System Analyst Lab, Ang - Db [facility] [id number] Univers 10:45:00 11:00:00 Visit [facility] [id number] ity of [place] [id number] Sarkis as MAURICIO?BLEA [phone] [facility] [address] [facility] OFFICE [facility] 2021-08-15 2021-08-15 Outpatient Hany [facility] [id number] Univers 10:45:00 10:45:00 [place] iraida [facility] 2021-08-15 2021-08-15 Office [facility] [id number] Univers 10:00:00 10:15:00 Visit [facility] [id number] it y of [place] [id number] Sarkis as MAURICIO?BLEA [phone] [address] OFFICE [facility] 2021-08-15 2021-08-15 Outpatient Hany [facility] [id number] Univers 10:00:00 10:00:00 [place] [facility] 2021-08-15 2021-08-15 Outpatient Hany [facility] [id number] Univers 10:00:00 10:00:00 [place] iraida [facility] 2021-08-15 2021-08-15 Outpatient Hany [facility] [id number] Univers 10:00:00 10:00:00 [facility] 2021-08-15 2021-08-15 Orders Doctor MATHEWS [id number] [id number] Univers 00:00:00 00:00:00 Only Unassigned, BRYAN [id number] [facility] [id number] Sarkis as [phone] [address] 2021-08-12 2021-08-12 [facility] [id number] Univers 10:00:00 10:00:00 [place] [facility] 2021-08-12 2021-08-12 [facility] [id number] Univers 10:00:00 10:00:00 [place] iraida [facility] 2021-08-07 2021-08-07 Telephone [facility] [id number] Univers 00:00:00 00:00:00 Brian BRADLEY 350.1.13.10 ity of [place] 4.2.7.2.[place] [phone] Tn dical NAL 059 [facility] 2021-08-06 2021-08-06 Refprabhjot [facility] 1.2.840.114 [id number] Univers 00:00:00 00:00:00 [facility] 350.1.13.10 it y of [place] 4.2.7.2.686 Sarkis as PROFESSIO [phone] Tn dical NAL [address] OFFICE [facility] ONE 2021-08-06 2021-08-06 [facility] 1.2.343.760 [id number] Univers 00:00:00 00:00:00 Brian BRADLEY 350.1.13.10 ity of [place] 4.2.7.2.[place] [phone] Tn dical NAL 059 [facility] 2021-08-05 2021-08-05 Outpatient H[facility] [id number] Univers 09:54:13 23:59:00 BRIAN [facility] 2021-08-05 2021-08-05 [facility] 1.2.840.114 [id number] Univers 09:54:13 23:59:00 Encounter Brian BARDLEY 350.1.13.10 ity of [place] 4.2.7.2.686 [place] [facility] [phone] Tn ashley [facility] 843 [facility] 2021-08-02 2021-08-02 Laboratory Only, Adc Test [facility] 1.2.840. 114 [id number] Univers 15:30:00 15:45:00 Only Maryam Mckeon 350.1.13.10 ity of [facility] 4.2.7.2.686 [place] [phone] [address] 2021-08-02 2021-08-02 Outpatient R MIKE [facility] [id number] Univers 15:30:00 15:30:00 MARYAM [facility] 2021-07-22 2021-07-22 Refprabhjot [facility]PRES[facility] 1.2.840.114 [id number] Univers 00:00:00 00:00:00 [facility] 350.1.13.10 it [facility] 4.2.7.2.686 Sarkis as MAURICIO?BLEA [phone] [address] OFFICE [facility] 2021-07-16 2021-07-16 Telephone [facility] 1.2.321.271 [id number] Univers 00:00:00 00:00:00 [facility] 350.1.13.10 it y of [facility] 4.2.7.2.686 Sarkis as MAURICIO?BLEA [phone] [address] OFFICE [facility] 2021-07-10 2021-07-10 Outpatient R EDUAR [facility] [id number] Univers 09:30:00 09:30:00 [facility] 2021-07-09 2021-07-09 Telephone [facility] 1.2.197.183 [id number] Univers 00:00:00 00:00:00 [facility] 350.1.13.10 it y of [place] 4.2.7.2.686 Sarkis as MAURICIO?BLEA [phone] [address] OFFICE [facility] 2021-07-08 2021-07-08 Telephone [facility] 1.2.552.611 [id number] [id number] Univers 00:00:00 00:00:00 [facility] 350.1.13.10 it y of [place] 4.2.7.2.686 Sarkis as MAURICIO?BLEA [phone] [address] OFFICE BUILDING 2021-07-03 2021-07-03 Office [facility]PRES[facility] 1.2.840.114 [id number] Univers 15:09:59 15:24:59 Visit [facility] 350.1.13.10 it y of [place] 4.2.7.2.686 Sarkis as MAURICIO?BLEA [phone] [address] OFFICE BUILDING 2021-07-03 2021-07-03 Outpatient R [facility] [id number] Univers 15:15:00 15:15:00 JEFFERSON ity [facility] 2021-07-03 2021-07-03 [facility] 1.2.840.114 [id number] Univers 00:00:00 00:00:00 [facility] 350.1.13.10 it y of [place] 4.2.7.2.686 Sarkis as PROFESSIO [phone] [address] OFFICE [facility] ONE 2021-07-01 2021-07-01 Telephone [facility] 1.2.929.307 [id number] Univers 00:00:00 00:00:00 [facility] 350.1.13.10 it y of [place] 4.2.7.2.686 Sarkis as MAURICIO?BLEA [phone] [address] OFFICE BUILDING 2021-06-26 2021-06-26 [facility] 1.2.840.114 [id number] Univers 00:00:00 00:00:00 [facility] 350.1.13.10 it y of [place] 4.2.7.2.686 Sarkis as MAURICIO?BLEA [phone] [address] OFFICE BUILDING 2021-06-26 2021-06-26 Telephone [facility] 1.2.859.020 [id number] Univers 00:00:00 00:00:00 [facility] 350.1.13.10 it y of [place] 4.2.7.2.686 Sarkis as MAURICIO?BLEA [phone] Tn dicguilherme SIMPSON [address] MEDICAL OFFICE [facility] 2021-06-24 2021-06-24 Outpatient R EDUAR [facility] [id number] Univers 09:00:00 09:00:00 JEFFERSON copeland [facility] 2021-06-24 2021-06-24 Telephone [facility] 1.2.253.760 [id number] Univers 00:00:00 00:00:00 [facility] 350.1.13.10 it y of [place] 4.2.7.2.686 Sarkis as MAURICIO?BLEA [phone] Tn ashley SIMPSON [address] [place] [address] MEDICAL OFFICE [facility] 2021-06-20 2021-06-20 Telephone [facility] 1.2.360.018 [id number] Univers 00:00:00 00:00:00 [place] 8[address]12.1.13.10 it y of [place] 4.2.7.2.686 Sarkis as MAURICIO?BLEA [phone] Tn ashley SIMPSON [address] [place] [address] MEDICAL OFFICE [facility] 2021-06-19 2021-06-19 Outpatient Hany WITT [facility] [id number] Univers 12:00:00 12:00:00 JEFFERSON iraida [facility] 2021-06-19 2021-06-19 Security System Analyst Lab, Ang - Db [facility] 1.2.840.1 14 [id number] Univers 10:09:29 10:24:29 Visit Eduar [facility] 350.1.13.10 ity of [place] 4.2.7.2.686 Sarkis as MAURICIO?BLEA [phone] Tn ashley SIMPSON [address] MEDICAL OFFICE [facility] 2021-06-19 2021-06-19 Office [facility] 1.2.840.114 [id number] Univers 09:41:59 10:11:59 Visit [facility] 350.1.13.10 it [facility] 4.2.7.2.686 Sarkis as MAURICIO?BLEA [phone] Tn ashley SIMPSON [address] [place] [address] MEDICAL OFFICE [facility] 2021-06-19 2021-06-19 Outpatient R [facility] [id number] Univers 10:00:00 10:00:00 JEFFERSON ity [facility] 2021-06-18 2021-06-18 Telephone [facility] 1.2.989.918 [id number] Univers 00:00:00 00:00:00 [facility] 350.1.13.10 it y of [place] 4.2.7.2.686 Sarkis as MAURICIO?BLEA [phone] [address] OFFICE [facility] 2021-06-11 2021-06-11 Outpatient R KARTHIKEYANPARKVIEW [facility] [id number] Univers 14:40:00 14:40:00 ROBBIE copeland o f [facility] 2021-06-10 2021-06-10 [facility]ot CharanbelkisPRESBYTERIAN [facility] 1.2.840.114 [id number] Univers 00:00:00 00:00:00 [facility] 350.1.13.10 it y of [place] 4.2.7.2.686 [place]is [place] PROFESSIO [phone] [address] ONE 2021-06-10 2021-06-10 Telephone [facility]PRES[facility] 1.2.274.795 [id number] Univers 00:00:00 00:00:00 [facility] 350.1.13.10 it y of [place] 4.2.7.2.686 Sarkis as MAURICOI?BLEA [phone] [address] 2021-06-09 2021-06-09 Refill [facility] 1.2.840.114 [id number] Univers 00:00:00 00:00:00 [facility] 350.1.13.10 it y of [place] 4.2.7.2.686 S[place]is as PROFESSIO [phone] [address] ONE 2021-06-04 2021-06-04 Imm/Inj Nurse, Adc Pob Immunization [facility] 1.2.840.114 [id number] Univers 14:44:49 14:45:00 Visit Severo Lara 350.1.13 .10 ity of [place].2.7.2.686 [place] [phone] Tn dical NAL 421 [facility] 2021-06-04 2021-06-04 Outpatient R AUDREY [facility] [id number] Univers 14:00:00 14:35:39 [facility] 2021-06-04 2021-06-04 Office Aud[facility]PRES[facility] 1.2.840.114 [id number] Univers 13:38:39 14:35:39 Visit Brian BRADLEY 350.1.13.10 ity [facility] 4.2.7.2.[place] [phone] Tn dical NAL 059 [facility] 2021-06-04 2021-06-04 Outpatient Hany LARA [facility] [id number] Univers 14:30:00 14:30:00 [facility] 2021-06-04 2021-06-04 Outpatient Hany LARA [facility] [id number] Univers 10:40:00 10:40:00 [facility] 2021-06-04 2021-06-04 Transition Wandystephanie EVERETTERoselyn 1.2.840.114 [id number] Univers 00:00:00 00:00:00 of Shea UMANA 350.1.13.10 i [place] 4.2.7.2.686 [place] [phone] [facility] [address] 2021-05-31 2021-06-01 Outpatient Rashmi [facility] [id number] Univers 13:04:00 12:55:00 CHERYLE [facility] 2021-05-31 2021-06-01 [facility] [place] [facility] 1.2.840.1 14 [id number] Univers 13:04:00 12:55:00 Encounter Cheryle Perera 350.1.13.10 ity [facility] 4.2.7.2.686 [place] CAMPUS [phone] [facility] [address] 2021-05-30 2021-05-30 Outpatient Hany LARA [facility] [id number] Univers 13:30:00 13:30:00 [facility] 2021-05-30 2021-05-30 Refprabhjot WittPRESBYTERIAN [facility] 1.2.840.114 [id number] Univers 00:00:00 00:00:00 [facility] 350.1.13.10 it y of [place] 4.2.7.2.686 Sarkis as PROFESSIO [phone] Tn ashley WYNN [address] [place] [address] OFFICE BUILDING ONE 2021-05-29 2021-05-29 Telephone [facility] 1.2.439.616 [id number] Univers 00:00:00 00:00:00 [facility] 350.1.13.10 it y of [place] 4.2.7.2.686 Sarkis as Mauricio?Blea [phone] Tn ashley simpson [address] [place] [address] Office [facility] 2021-05-28 2021-05-28 Telephone [facility]PRES[facility] 1.2.471.192 [id number] Univers 00:00:00 00:00:00 [facility] 350.1.13.10 it y of [place] 4.2.7.2.686 Sarkis as MAURICIO?BLEA [phone] Tn ashley SIMPSON [address] [place] [address] OFFICE [facility] 2021-05-27 2021-05-27 Telephone [facility]PRES[facility] 1.2.485.806 [id number] Univers 00:00:00 00:00:00 [facility] 350.1.13.10 it y of [place] 4.2.7.2.686 Sarkis as Mauricio?Blea [phone] Tn ashley simpson [address] [place] [address] Office [facility] 2021-05-27 2021-05-27 Telephone [facility] 1.2.517.263 [id number] Univers 00:00:00 00:00:00 [facility] 350.1.13.10 it y of [place] 4.2.7.2.686 Sarkis as Mauricio?Blea [phone] Tn ashley simpson [address] [facility] Office [facility] 2021-05-22 2021-05-22 Refprabhjot WittPRESBYTERIAN [facility] 1.2.840.114 [id number] Univers 00:00:00 00:00:00 [facility] 350.1.13.10 it y of [place] 4.2.7.2.686 [place]is as Professio [phone] [address] 2021-05-12 2021-05-12 Refill [facility]PRES[facility] 1.2.840.114 [id number] Univers 00:00:00 00:00:00 [facility] 350.1.13.10 it y of [place] 4.2.7.2.686 [place]is as Professio [phone] [address] 2021-05-10 2021-05-10 Outpatient R STEVENSON [facility] [id number] Univers 13:30:00 14:11:31 MARYLOU ity of [facility] 2021-05-10 2021-05-10 Office StevensonPRES[facility]TER[facility] 1.2.840.114 [id number] Univers 13:28:18 14:11:31 Visit [facility] 350.1.13.10 it y of [place] 4.2.7.2.686 Sarkis as MAURICIO?BLEA [phone] [address] 2021-05-09 2021-05-09 Telephone ElinaPRESBYTER[facility] 1.2.840.114 [id number] Univers 00:00:00 00:00:00 Giovany [place] 350.1.13.10 i ty of [place] 4.2.7.2.686 [place] Profess[place] [phone] [address] 2021-05-06 2021-05-06 Orders Doctor BISI 1.2.840.114 [id number] Univers 00:00:00 00:00:00 Only Unassigned, BRYAN 350.1.13.10 ity of [place] [facility] 4.2.7.2.686 Sarkis as [phone] [address] 2021-05-01 2021-05-01 Telephone WittPRESBY[facility] 1.2.938.314 [id number] Univers 00:00:00 00:00:00 [facility] 350.1.13.10 it y of [place] 4.2.7.2.686 Sarkis as Mauricio?Blea [phone] [address] Office [facility] 2021-04-25 2021-04-25 Office Eduar [facility] 1.2.840.114 [id number] Univers 08:59:52 09:29:52 Visit [facility] 350.1.13.10 it y of [place] 4.2.7.2.686 Sarkis as Mauricio?Blea [phone] [facility] [address] [facility] Office [facility] 2021-04-25 2021-04-25 Outpatient R [facility] [id number] Univers 09:00:00 09:00:00 JEFFERSON min of [facility] 2021-04-24 2021-04-24 Urgent VenkateshEnmanuelAna [facility] 1.2.840.114 [id number] Univers 09:29:51 09:50:31 Care Derek [facility] 350.1.13.10 ity of [place] 4.2.7.2.686 Sarkis as Mauricio?Blea [phone] [facility] [address] [facility] Office [facility] 2021-04-24 2021-04-24 Outpatient R DEREK [facility] [id number] Univers 09:40:00 09:40:00 DORON copeland o f [facility] 2021-04-18 2021-04-18 Orders Doctor BISI 1.2.840.114 [id number] Univers 00:00:00 00:00:00 Only Unassigned, BRYAN 350.1.13.10 ity of [place] [facility] 4.2.7.2.686 Sarkis as [id number] [address] 2021-04-15 2021-04-15 Telephone Stevenson [facility] 1.2.803.857 [id number] [id number] Univers 00:00:00 00:00:00 Marylou Bradley 350.1.13.10 i ty of [place] 4.2.7.2.686 [place] essio [phone] [facility] 220 [facility] 2021-04-11 2021-04-11 Office [facility]PRES[facility] 1.2.840.114 [id number] Univers 09:38:42 09:57:48 Visit [facility] 350.1.13.10 it y of [place] 4.2.7.2.686 Sarkis as Mauricio?Blea [phone] Tn ashley simpson 044 [facility] 2021-04-11 2021-04-11 Outpatient Hany WITT [facility] [id number] Univers 09:45:00 09:45:00 JEFFERSON copeland [facility] 2021-04-11 2021-04-11 Security System Analyst 2, Adc Lab [facility] 1.2.840.114 [id number] Univers 08:12:22 08:27:22 Visit [facility] [place] 350.1.13.10 ity of [place] 4.2.7.2.686 [place] [phone] Tn shirams tianna [address] [place] [address] 2021-04-11 2021-04-11 Security System Analyst 2, Adc Lab [facility] 1.2.840.114 [id number] Univers 08:12:22 08:27:22 Visit [facility] [place] 350.1.13.10 ity of [place] 4.2.7.2.686 [place] Profess[place] [phone] Tn shira[address] 2021-04-10 2021-04-10 Outpatient Hany WITT [facility] [id number] Univers 12:00:00 12:00:00 JEFFERSON copeland [facility] 2021-03-31 2021-03-31 Refprabhjot WittPRESBYTERIAN [facility] 1.2.840.114 [id number] Univers 00:00:00 00:00:00 [facility] 350.1.13.10 it y of [place] 4.2.7.2.686 Sarkis as Professio [phone] [address] One 2021-03-31 2021-03-31 Viktoriya WittPRESBYTER[facility] 1.2.840.114 [id number] Univers 00:00:00 00:00:00 [facility] 350.1.13.10 it y of [place] 4.2.7.2.686 Sarkis as Professio [id number] [address] 2021-03-12 2021-03-12 Refprabhjot WittPRESBYTERIAN MED[facility] 1.2.840.114 [id number] 89 Univers 00:00:00 00:00:00 [facility] 350.1.13.10 it y of [place] 4.2.7.2.686 Sarkis as Professio [phone] Tn dical nal [address] One 2021-03-04 2021-03-04 Viktoriya WittPRESBYTERIAN [facility] 1.2.840.114 [id number] 60 Univers 00:00:00 00:00:00 [facility] 350.1.13.10 it y of [place] 4.2.7.2.686 Sarkis as Professio [phone] Tn dical nal [address] One 2021-03-01 2021-03-01 Viktoriya WittPRESBYTERIAN [facility] 1.2.840.114 [id number] Univers 00:00:00 00:00:00 [facility] 350.1.13.10 it y of [place] 4.2.7.2.686 Sarkis as Professio [phone] Tn dical nal [address] Office [facility] One 2021-02-26 2021-02-26 Cornish Edu[facility]PRES[facility] 1.2.144.797 [id number] Univers 00:00:00 00:00:00 [facility] 350.1.13.10 it y of [place] 4.2.7.2.686 Sarkis as Professio [phone] Tn dical nal [address] One 2021-02-22 2021-02-22 Juan WittPRESBYTER[facility] 1.2.481.536 [id number] 7883 Univers 00:00:00 00:00:00 [facility] 350.1.13.10 it y of [place] 4.2.7.2.686 Sarkis as Professio [phone] Tn dical nal [address] Office [facility] One 2021-02-19 2021-02-19 [facility] Centerprabhjot WittPRES[facility] 1.2.840.114 [id number] Univers 00:00:00 00:00:00 [facility] 350.1.13.10 it y of [place] 4.2.7.2.686 Sarkis as Professio [phone] Tn dical nal [address] One 2021-02-18 2021-02-18 [facility] 1.2.840.114 [id number] Univers 11:40:45 23:59:00 Encounter Josse Bradley 350.1.13.10 ity of [place] 4.2.7.2.686 [facility] [phone] [facility] [address] 2021-02-18 2021-02-18 Outpatient R GORDON [facility] [id number] Univers 00:00:00 00:00:00 JOSSE copeland [facility] 2021-02-18 2021-02-18 Orders Doctor BISI 1.2.840.114 [id number] Univers 00:00:00 00:00:00 Only Unassigned, BRYAN 350.1.13.10 [facility] 4.2.7.2.686 Sarkis as [phone] [facility] [address] 2021-02-18 2021-02-18 Telephone [facility]PRES[facility] 1.2.940.929 [id number] Univers 00:00:00 00:00:00 [facility] 350.1.13.10 it y of [place] 4.2.7.2.686 Sarkis as Professio [phone] Tn dicms nal [address] Office [facility] One 2021-02-08 2021-02-08 Outpatient R ELINA [facility] [id number] Univers 08:30:00 08:30:00 GIOVANY min [facility] 2021-02-04 2021-02-04 Urgent Provider, [facility] Urgent Care [facility] 1.2.840.114 [id number] Univers 12:13:45 12:31:27 Care Josse Leyva 350.1.13.10 ity of [place] 4.2.7.2.686 Sarkis as Professio [phone] Tn dicms nal [address] One 2021-02-04 2021-02-04 Outpatient [facility] [id number] Univers 12:20:00 12:20:00 JOSSE copeland [facility] 2021-02-04 2021-02-04 Refill [facility] 1.2.840.114 [id number] Univers 00:00:00 00:00:00 [facility] 350.1.13.10 it y of [place] 4.2.7.2.686 Sarkis as Professio [phone] Tn dical nal 044 [facility] One 2021-02-01 2021-02-01 Office Marylou Gamino [facility] 1.2.840.114 [id number] Univers 13:13:42 15:01:09 Visit Giovany Antoine Claudia ParkerJuliette 350.1.13.10 ity of [place] 4.2.7.2.[place] [phone] Tn dical nal 220 [facility] 2021-02-01 2021-02-01 Outpatient R ELINA [facility] [id number] Univers 13:30:00 13:30:00 GIOVANY [facility] 2021-02-01 2021-02-01 Outpatient R ELINA [facility] [id number] Univers 13:30:00 13:30:00 [facility] 2021-01-24 2021-01-24 Refprabhjot WittPRES[facility] 1.2.840.114 [id number] Univers 00:00:00 00:00:00 [facility] 350.1.13.10 it y of [place] 4.2.7.2.686 Sarkis as Professio [phone] Tn dical nal 044 [facility] One 2021-01-16 2021-01-16 Refprabhjot WittPRESBY[facility] 1.2.840.114 [id number] Univers 00:00:00 00:00:00 [facility] 350.1.13.10 it y of [place] 4.2.7.2.686 Sarkis as Professio [phone] Tn dical nal 044 [facility] One 2021-01-10 2021-01-10 Telephone AlbertoPRESBYTERIAN [facility] 1.2.121.359 [id number] 6135 Univers 00:00:00 00:00:00 [facility] 350.1.13.10 ity of [place] 4.2.7.2.686 Sarkis as Professio [phone] Tn dical nal 044 [facility] One 2021-01-09 2021-01-09 [facility] Romi Dominguez [facility] 1.2.840 .114 [id number] Univers 15:52:45 16:12:45 Care Josse [facility] 350.1.13.10 ity of [place] 4.2.7.2.686 Sarkis as Professio [phone] [address] One 2021-01-09 2021-01-09 Outpatient Hany LEYVA [facility] [id number] Univers 16:00:00 16:00:00 JOSSE itiraida [facility] 2021-01-07 2021-01-07 Refprabhjot WittPRESBY[facility] 1.2.840.114 [id number] Univers 00:00:00 00:00:00 [facility] 350.1.13.10 it y of [place] 4.2.7.2.686 Sarkis as Professio [phone] [address] One 2021-01-07 2021-01-07 Refprabhjot WittPRESBYTERIAN [facility] 1.2.840.114 [id number] Univers 00:00:00 00:00:00 [facility] 350.1.13.10 it y of [place] 4.2.7.2.686 Sarkis as Professio [phone] [address] One 2021-01-07 2021-01-07 Juan WittPRESBYTER[facility] 1.2.133.492 [id number] 6820 Univers 00:00:00 00:00:00 [facility] 350.1.13.10 it y of [place] 4.2.7.2.686 Sarkis as Professio [phone] [address] One 2021-01-07 2021-01-07 Telephone [facility]PRES[facility] 1.2.543.992 [id number] Univers 00:00:00 00:00:00 [facility] 350.1.13.10 it y of [place] 4.2.7.2.686 Sarkis as Professio [phone] [address] Office [facility] One 2021-01-03 2021-01-03 Outpatient [facility] [id number] Univers 12:15:00 12:15:00 [facility] 2021-01-03 2021-01-03 Office Eduar [facility] 1.2.840.114 [id number] Univers 11:45:12 12:00:12 Visit [facility] 350.1.13.10 it y of [place] [id number] [facility] as Professio [phone] [address] Office [facility] One 2021-01-02 2021-01-02 Refill Eduar [facility] 1.2.840.114 [id number] Univers 00:00:00 00:00:00 [facility] 350.1.13.10 it y of [place] 4.2.7.2.686 [facility] as Professio [phone] [address] Office [facility] One 2021-01-02 2021-01-02 Telephone Eduar [facility] 1.2.444.486 [id number] Univers 00:00:00 00:00:00 [facility] 350.1.13.10 it y of [place] 4.2.7.2.686 Sarkis as Professio [phone] [facility] nal [address] [place] [address] Office [facility] One 2021-01-01 2021-01-01 Refill Eduar [facility] 1.2.840.114 [id number] Univers 00:00:00 00:00:00 [facility] 350.1.13.10 it y of [place] 4.2.7.2.686 [facility] as Professio [phone] [address] One 2021-01-01 2021-01-01 Orders Doctor BISI 1.2.840.114 [id number] Univers 00:00:00 00:00:00 Only Unassigned, BRYAN 350.1.13.10 [facility]y [facility] [place] [facility] 4.2.7.2.686 Sarkis as [phone] [facility] [address] 2020-12-24 2020-12-24 Nurse BISI Fitzgerald 1.2.840.114 [id number] Univers 00:00:00 00:00:00 Triage Araceli T BRYAN 350.1.13.10 it y of HOSPITAL 4.2.7.2.686 Sarkis as [phone] [facility] [address] 2020-12-07 2020-12-07 [facility] 1.2.840.114 [id number] Univers 00:00:00 00:00:00 [facility] 350.1.13.10 it y of [place] 4.2.7.2.686 Sarkis as Professio [phone] Tn dicms nal [address] [place] [address] Office [facility] One 2020-12-05 2020-12-05 [place] [facility] 1.2.645.564 [id number] Univers 00:00:00 00:00:00 [facility] 350.1.13.10 it y of [place] 4.2.7.2.686 [facility] as Professio [phone] Tn dical nal [address] [place] [address] One 2020-12-03 2020-12-03 [facility]abh[facility]PRES[facility] 1.2.840.114 [id number] Univers 00:00:00 00:00:00 [facility] 350.1.13.10 it y of [place] 4.2.7.2.686 [place]arkis as Professio [phone] Tn dical nal 044 [facility] One 2020-12-03 2020-12-03 [facility] 1.2.840.114 [id number] Univers 00:00:00 00:00:00 [facility] 350.1.13.10 it y of [place] 4.2.7.2.686 [place]is as Professio [phone] [facility] nal [address] [place] [address] One 2020-11-27 2020-11-27 Outpatient Hany [facility] [id number] Univers 09:21:28 23:59:00 JEFFERSON ity of [facility] 2020-11-27 2020-11-27 [facility] 1.2.840.114 [id number] Univers 09:21:28 23:59:00 Encounter Jefferson Bradley 350.1.13.10 ity of [place] [phone] [facility] [address] 2020-11-27 2020-11-27 Outpatient H[facility] [id number] Univers 00:00:00 00:00:00 JEFFERSON ity [facility] 2020-11-27 2020-11-27 Orders Doctor BISI 1.2.840.114 [id number] Univers 00:00:00 00:00:00 Only Unassigned, BRYAN 350.1.13.10 ity of [place] [facility] 4.2.7.2.686 Sarkis as [phone] [facility] [address] 2020-11-21 2020-11-21 Refill [facility] 1.2.840.114 [id number] Univers 00:00:00 00:00:00 [facility] 350.1.13.10 it y of [place] 4.2.7.2.686 [place] Professio [phone] [address] Office [facility] One 2020-11-14 2020-11-14 [facility] 1.2.128.348 [id number] Univers 00:00:00 00:00:00 [facility] 350.1.13.10 it y of [place] 4.2.7.2.686 [place] as Professio [phone] [address] Office Building One 2020-11-13 2020-11-13 Outpatient R [facility] [id number] Univers 13:17:58 23:59:00 JEFFERSON [facility] 2020-11-13 2020-11-13 [facility] 1.2.840.114 [id number] Univers 13:17:58 23:59:00 Encounter Jefferson [place]te 350.1.13.10 ity of [place] 4.2.7.2.686 [facility] [phone] [facility] [address] 2020-11-13 2020-11-13 [facility] 1.2.840.114 [id number] Univers 13:17:10 23:59:00 Encounter Jefferson Bradley 350.1.13.10 ity of [place] 4.2.7.2.686 [facility] [phone] [facility] [address] 2020-11-13 2020-11-13 Outpatient R [facility] [id number] Univers 00:00:00 00:00:00 JEFFERSON iraida [facility] 2020-11-13 2020-11-13 Orders Doctor BISI 1.2.840.114 [id number] Univers 00:00:00 00:00:00 Only Unassigned, BRYAN 350.1.13.10 ity of [place] [facility] 4.2.7.2.686 Sarkis as [phone] [address] 2020-11-06 2020-11-06 Refprabhjot WittPRESBYTERIAN [facility] 1.2.840.114 [id number] Univers 00:00:00 00:00:00 [facility] 350.1.13.10 it y of [place] 4.2.7.2.686 [place]is as Professio [phone] [address] Office [facility] One 2020-10-24 2020-10-24 Office [facility]PRES[facility] 1.2.840.114 [id number] Univers 13:10:01 13:25:01 Visit [facility] 350.1.13.10 it y of [place] 4.2.7.2.686 [place] as Professio [phone] [address] Office [facility] One 2020-10-24 2020-10-24 Outpatient R [facility] [id number] Univers 13:15:00 13:15:00 JEFFERSON iraida [facility] 2020-10-24 2020-10-24 Orders Doctor BISI 1.2.840.114 [id number] Univers 00:00:00 00:00:00 Only Unassigned, BRYAN 350.1.13.10 ity of [place] [facility] 4.2.7.2.686 Sarkis as [phone] [address] 2020-10-09 2020-10-09 Refprabhjot WittPRESBYTERIAN MED[facility] 1.2.840.114 [id number] Univers 00:00:00 00:00:00 [facility] 350.1.13.10 it y of [place] 4.2.7.2.686 [place] as Professio [phone] [address] Office Building One 2020-10-09 2020-10-09 Refprabhjot WittPRESBYTERIAN MED[facility] 1.2.840.114 [id number] Univers 00:00:00 00:00:00 [facility] 350.1.13.10 it y of [place] 4.2.7.2.686 [place] as Professio [phone] [facility] [address] [facility] 2020-10-03 2020-10-03 Office [facility]PRES[facility] 1.2.840.114 [id number] Univers 12:26:09 12:41:09 Visit [facility] 350.1.13.10 it y of [place] 4.2.7.2.686 [place] as Professio [phone] [facility] 044 [facility] One 2020-10-03 2020-10-03 Outpatient R [facility] [id number] Univers 12:15:00 12:15:00 JEFFERSON iraida [facility] 2020-09-28 2020-09-28 Office AntoinePRESBYTER[facility] 1.2.003.056 [id number] Univers 13:21:27 14:42:31 Visit Giovany [place] 350.1.13.10 i ty of [place] [phone] [facility] 220 [facility] 2020-09-28 2020-09-28 Outpatient R [facility] [id number] Univers 13:30:00 13:30:00 GIOVANY iraida [facility] 2020-09-24 2020-09-24 Refill Edu[facility]PRES[facility] 1.2.840.114 [id number] Univers 00:00:00 00:00:00 [facility] 350.1.13.10 it y of [place] 4.2.7.2.686 [place] as Professio [phone] [facility] 044 [facility] One 2020-09-20 2020-09-20 Emergency X HARPREETPRESBYTER[facility] ERT [id number] Univers 11:53:00 12:28:00 JAYASHREE min [facility] 2020-09-20 2020-09-20 Emergency HarpreetPRESBYTER[facility] 1.2.840.114 [id number] Univers 11:53:00 12:28:00 Jayashree J Juliette 350.1.13.10 ity of [place] [phone] [facility] [address] [place] [address] 2020-09-19 2020-09-19 Viktoriya WittPRESBYTERIAN MED[facility] 1.2.840.114 [id number] Univers 00:00:00 00:00:00 [facility] 350.1.13.10 it y of [place] 4.2.7.2.686 [place] as Professio [phone] Tn dical nal [address] Office [facility] One 2020-09-14 2020-09-14 Viktoriya WittPRESBYTER[facility] 1.2.840.114 [id number] 25 Univers 00:00:00 00:00:00 [facility] 350.1.13.10 it y of [place] 4.2.7.2.686 [place] Professio [phone] Tn [facility]. [facility] [address] [facility] 2020-09-13 2020-09-13 Viktoriya WittPRESBYTERIAN [facility] 1.2.840.114 [id number] Univers 00:00:00 00:00:00 [facility] 350.1.13.10 it y of [place] 4.2.7.2.686 [place] as Professio [phone] Tn dical nal [address] [facility] 2020-09-06 2020-09-[address] [facility] [id number] Univers 13:30:00 13:40:37 JORGE LUIS [facility] 2020-09-06 2020-09-[address] [facility] [id number] Univers 13:30:00 13:30:00 JORGE LUIS [facility] 2020-08-31 2020-08-31 Office Janae [facility] 1.2.840.114 [id number] Univers 10:35:13 11:37:50 Visit Bisi Bradley 350.1.13.10 i ty of [place] [phone] [facility] 188 [facility] 2020-08-31 2020-08-31 Outpatient Hany [facility] [id number] Univers 11:00:00 11:00:00 BISI min of [facility] 2020-08-29 2020-08-29 Telephone Elina [facility] 1.2.840.114 [id number] Univers 00:00:00 00:00:00 Giovany H Mirna 350.1.13.10 i ty of [place] [phone] Tn dical nal [address] Building 2020-08-27 2020-08-27 Refprabhjot Eduar [facility] 1.2.840.114 [id number] Univers 00:00:00 00:00:00 [facility] 350.1.13.10 it y of [place] 4.2.7.2.686 [place] Professio [phone] Tn dical nal [address] Building One 2020-08-21 2020-08-21 Nurse Guy MATHEWS 1.2.840.114 [id number] Univers 00:00:00 00:00:00 Triage BRYAN Mcclellan 350.1.13.10 ity of [facility] 4.2.7.2.686 [place] as [phone] [facility] [address] 2020-08-17 2020-08-17 Hospital Janae [facility] 1.2.840.114 [id number] Univers 07:37:00 11:47:00 Encounter Bisi Bradley 350.1.13.10 ity of [place].2.[place] [phone] [facility] [address] 2020-08-16 2020-08-16 Laboratory Only, Adc Test [facility] 1.2.840. 114 [id number] Univers 14:00:33 14:15:33 Only Bisi Cardoso 350.1.13 .10 ity of [place] [phone] [facility] [address] 2020-08-16 2020-08-16 Outpatient R JANAE [facility] [id number] Univers 14:00:00 14:00:00 BISI copeland [facility] 2020-08-16 2020-08-16 Orders Doctor BISI 1.2.840.114 [id number] Univers 00:00:00 00:00:00 Only Unassigned, BRYAN 350.1.13.10 ity of [place] [facility] 4.2.7.2.686 Sarkis as [phone] [facility] [address] 2020-08-14 2020-08-14 Telephone Elina [facility] 1.2.840.114 [id number] Univers 00:00:00 00:00:00 Giovany Taylor MULTISPEC 350.1.13.10 ity of [facility] 4.2.7.2.686 [place] [phone] [facility] [address] [facility] 2020-08-09 2020-08-[address] [facility] [id number] Univers 15:20:00 15:20:00 JORGE LUIS [facility] 2020-08-09 2020-08-[address] [facility] [id number] Univers 15:20:00 15:09:53 JORGE LUIS [facility] 2020-08-08 2020-08-08 Telephone [facility]PRES[facility] 1.2.789.060 [id number] Univers 00:00:00 00:00:00 [facility] 350.1.13.10 it y of [place] 4.2.7.2.686 [place] as Professio [phone] Tn dicms nal [address] [place] [address] Office [facility] One 2020-08-06 2020-08-06 Refill WittPRES[facility] 1.2.840.114 [id number] Univers 00:00:00 00:00:00 [facility] 350.1.13.10 it y of [place] 4.2.7.2.686 [place] as Professio [phone] Tn dical nal [address] [place] [address] Office Building One 2020-08-06 2020-08-06 Telephone [facility]PRES[facility] 1.2.148.190 [id number] Univers 00:00:00 00:00:00 [facility] 350.1.13.10 i ty of [place].2.[place] [phone] Tn dical nal 044 [facility] 2020-07-30 2020-07-30 Security System Analyst 2, [facility] Lab [facility] 1.2.840.114 [id number] Univers 10:00:24 10:15:24 Visit Jefferson Witt Mirna 350.1.13.10 ity of [place] 4.2.7.2.[place] [phone] Tn dical nal 353 [facility] 2020-07-30 2020-07-30 Outpatient R [facility] [id number] Univers 10:15:00 10:15:00 JEFFERSON ity of [facility] 2020-07-30 2020-07-30 Laboratory Pc, [facility] Echo Room 1 - [facility] 1 .2.840.114 [id number] Univers 08:18:05 09:18:05 Only Robbie Coronado 350.1.13.10 ity of [place].7.2.[place] [phone] Tn dical nal 059 [facility] 2020-07-30 2020-07-30 Nurse Visit, [facility] Nurse [facility] 1.2.840.1 14 [id number] Univers 08:17:07 08:47:07 Visit Robbie Coronado 350.1.13.10 ity of [place].2.[place].2.[place] [phone] Tn dical nal 059 [facility] 2020-07-30 2020-07-30 Outpatient R [facility] [id number] Univers 08:30:00 08:30:00 ity of [facility] 2020-07-30 2020-07-30 Refill [facility] 1.2.840.114 [id number] Univers 00:00:00 00:00:00 [facility] 350.1.13.10 it y of [place] 4.2.7.2.686 [place] Professio [phone] Tn dical nal 044 [facility] One 2020-07-24 2020-07-24 Telephone [facility] 1.2.532.752 [id number] Univers 00:00:00 00:00:00 [facility] 350.1.13.10 it y of [place] 4.2.7.2.686 [place] Professio [phone] Tn dical nal 044 [facility] One 2020-07-23 2020-07-23 Refprabhjot Witt [facility] 1.2.840.114 [id number] Univers 00:00:00 00:00:00 [facility] 350.1.13.10 it y of [place] 4.2.7.2.686 [place] Professio [phone] Tn dical nal 044 [facility] One 2020-07-20 2020-07-20 Outpatient R JANAE [facility] [id number] Univers 09:45:00 10:34:29 BISI itiraida [facility] 2020-07-20 2020-07-20 Office [facility] 1.2.840.114 [id number] Univers 09:34:36 10:34:29 Visit Bisi Bradley 350.1.13.10 i ty of [place].2.[place] [phone] [facility]n [facility]. [facility] 188 [facility] 2020-07-20 2020-07-20 Outpatient R JANAE [facility] [id number] Univers 09:45:00 09:45:00 BISI copeland [facility] 2020-07-20 2020-07-20 Prep For Praveena [facility] 1.2.840.114 [id number] Univers 00:00:00 00:00:00 Surgery Sandy Bradley 350.1.13.10 ity of [place].2.[place] [phone] Tn [facility]st. [facility] 204 [facility] 2020-07-19 2020-07-19 Telephone Praveena [facility] 1.2.874.607 [id number] Univers 00:00:00 00:00:00 Sandy A Mirna 350.1.13.10 ity of [place].2.[place] [phone] Tn dical nal 204 [facility] 2020-07-11 2020-07-11 Outpatient R PRAVEENA [facility] [id number] Univers 14:15:00 15:24:26 SANDY copeland [facility] 2020-07-11 2020-07-11 Office Praveena [facility] 1.2.840.114 [id number] Univers 14:07:33 15:24:26 Visit Sandy Bradley 350.1.13.10 ity of [place].2.[place] [phone] [facility] 204 [facility] 2020-07-11 2020-07-11 Security System Analyst Lab, [facility] Fam Po I [facility] 1.2. 840.114 [id number] Univers 12:22:19 12:42:19 Visit Jefferson Witt 350.1.13.10 ity of [place] 4.2.7.2.686 [place] Professio [phone] [facility] [address] [facility] 2020-07-11 2020-07-11 Office [facility] 1.2.840.114 [id number] Univers 11:51:24 12:15:39 Visit Jefferson [facility] 350.1.13.10 it y of [place] 4.2.7.2.686 [place] Professio [phone] [address] 2020-07-11 2020-07-11 Outpatient R [facility] [id number] Univers 12:00:00 12:00:00 JEFFERSON ity [facility] 2020-07-04 2020-07-04 Telephone [facility] 1.2.733.978 [id number] Univers 00:00:00 00:00:00 [facility] 350.1.13.10 it y of [place] 4.2.7.2.686 [place] Professio [phone] [address] 2020-06-27 2020-06-27 Hospital [facility] 1.2.840.114 [id number] Univers 13:09:36 23:59:00 Encounter Rosettecee [place] 350.1.13.10 ity of [place].2.[place] [phone] [address] 2020-06-27 2020-06-27 Security System Analyst Lab, [facility] Fam Pob I [facility] 1.2. 840.114 [id number] Univers 11:31:39 11:51:39 Visit Ros[facility] 350.1.13.10 ity of [place] 4.2.7.2.686 [place] Professio [phone] [address] Office Building One 2020-06-27 2020-06-27 Outpatient R BEN [facility] [id number] Univers 11:40:00 11:43:32 ROSETTE itiraida [facility] 2020-06-27 2020-06-27 Urgent Provider, [facility] Urgent Care [facility] 1.2.840.114 [id number] Univers 10:46:55 11:43:03 Care Gordon [facility] 350.1.13.10 ity of [place] 4.2.7.2.686 [place] Professio [phone] [address] Office [facility] One 2020-06-27 2020-06-27 Outpatient R GORDON [facility] [id number] [facility] 11:00:00 11:00:00 JOSSE copeland [facility] 2020-06-26 2020-06-26 Telephone [facility] 1.2.794.046 [id number] Univers 00:00:00 00:00:00 [facility] 350.1.13.10 it y of [place] 4.2.7.2.686 [place] Professio [phone] [address] Office [facility] One 2020-06-22 2020-06-22 Refprabhjot WittPRESBYTERIAN [facility] 1.2.840.114 [id number] Univers 00:00:00 00:00:00 [facility] 350.1.13.10 it y of [place] 4.2.7.2.686 [place] Professio [phone] [address] Office [facility] One 2020-06-21 2020-06-21 Telephone [facility] 1.2.289.536 [id number] Univers 00:00:00 00:00:00 [facility] 350.1.13.10 it y of [place] 4.2.7.2.686 [place] Professio [phone] [address] Office [facility] One 2020-06-19 2020-06-19 Refprabhjot WittPRESBYTERIAN [facility] 1.2.840.114 [id number] Univers 00:00:00 00:00:00 [facility] 350.1.13.10 it y of [place] 4.2.7.2.686 [place] Professio [phone] Tn dical nal 044 [facility] One 2020-06-19 2020-06-19 Refprabhjot WittPRESBY[facility] 1.2.840.114 [id number] Univers 00:00:00 00:00:00 [facility] 350.1.13.10 it y of [place] 4.2.7.2.686 [place] as Professio [phone] [facility] One 2020-06-13 2020-06-13 Refill WittPRES[facility] 1.2.840.114 [id number] Univers 00:00:00 00:00:00 [facility] 350.1.13.10 it y of [place] 4.2.7.2.686 [place] as Professio [phone] Tn dical nal 044 [facility] One 2020-06-04 2020-06-04 Telephone [facility] 1.2.840.114 [id number] Univers 00:00:00 00:00:00 Giovany [place] 350.1.13.10 i ty of [place] [phone] [facility] nal 220 [facility] 2020-06-01 2020-06-01 Telephone [facility] 1.2.984.189 [id number] Univers 00:00:00 00:00:00 [facility] 350.1.13.10 it y of [place] 4.2.7.2.686 [place] Professio [phone] [facility] nal [address] [place] [address] 2020-05-29 2020-05-29 Outpatient R EDUAR [facility] [id number] Univers 09:00:00 09:00:00 JEFFERSON copeland of [facility] 2020-05-29 2020-05-29 Telemedici [facility]PRES[facility] 1.2.840.114 [id number] Univers 06:53:27 07:08:27 ne Visit [facility] 350.1.13.10 i ty of [place] 4.2.7.2.686 [place] as Professio [phone] Me dical nal 044 [facility] One 2020-05-29 2020-05-29 [facility] 1.2.284.478 [id number] Univers 00:00:00 00:00:00 Giovany [place] 350.1.13.10 i ty of [place] [phone] Tn ashley nal 220 [facility] 2020-05-21 2020-05-21 Telephone [facility] 1.2.700.065 [id number] Univers 00:00:00 00:00:00 [facility] 350.1.13.10 it y of [place] 4.2.7.2.686 [place] as Professio [phone] Tn shiraal nal [address] [facility] 2020-05-16 2020-05-16 [facility] Centerprabh[facility]ot WittPRES[facility] 1.2.840.114 [id number] Univers 00:00:00 00:00:00 [facility] 350.1.13.10 it y of [place] 4.2.7.2.686 [place] as Professio [phone] Tn shiraal nal [address] [facility] 2020-05-14 2020-05-14 [facility] Centerprabhjot WittPRES[facility] 1.2.840.114 [id number] Univers 00:00:00 00:00:00 [facility] 350.1.13.10 it y of [place] 4.2.7.2.686 [place] as Professio [phone] Tn dical nal 044 [facility] One 2020-05-11 2020-05-11 Cornish [facility]PRES[facility] 1.2.408.669 [id number] [id number] Univers 00:00:00 00:00:00 [facility] 350.1.13.10 it y of [place] 4.2.7.2.686 [place] as Professio [phone] [facility] One 2020-05-11 2020-05-11 Telephone [facility] 1.2.840.114 [id number] Univers 00:00:00 00:00:00 Giovany [place] 350.1.13.10 i ty of [place] [phone] [facility] 220 [facility] 2020-05-08 2020-05-08 Outpatient R EDUAR [facility] [id number] Univers 08:45:00 08:45:00 JEFFERSON copeland [facility] 2020-05-08 2020-05-08 Telemedicdelia WittPRESBYTER[facility] 1.2.840.114 [id number] Univers 07:57:55 08:12:55 ne Visit [facility] 350.1.13.10 i ty of [place] 4.2.7.2.686 [place] Professio [phone] [address] 2020-05-08 2020-05-08 Telephone [facility] 1.2.885.637 [id number] [id number] Univers 00:00:00 00:00:00 [facility] 350.1.13.10 it y of [place] 4.2.7.2.686 [place] Professio [phone] [address] 2020-05-08 2020-05-08 Telephone [facility]PRES[facility] 1.2.615.485 [id number] 8378 Univers 00:00:00 00:00:00 Jefferson Bradley 350.1.13.10 i ty [place] [phone] [address] 2020-05-02 2020-05-02 Juan WittPRESBYTER[facility] 1.2.725.625 [id number] Univers 00:00:00 00:00:00 [facility] 350.1.13.10 it y of [place] 4.2.7.2.686 [place] Professio [phone] [address] 2020-04-24 2020-04-24 Outpatient R [facility] [id number] Univers 09:15:00 09:15:00 JEFFERSON copeland [facility] 2020-04-24 2020-04-24 Telemedici [facility]PRES[facility] 1.2.840.114 [id number] Univers 06:51:14 07:06:14 ne Visit [facility] 350.1.13.10 i ty of [place] 4.2.7.2.686 [place] as Professio [phone] Tn dical nal [address] [facility] 2020-04-18 2020-04-18 Refprabhjot WittPRESBYTER[facility] 1.2.840.114 [id number] Univers 00:00:00 00:00:00 [facility] 350.1.13.10 it y of [place] 4.2.7.2.686 [place] as Professio [phone] Tn dical nal 044 [facility] 2020-04-13 2020-04-13 [facility] [id number] Univers 00:00:00 00:00:00 Giovany H [place] 350.1.13.10 i ty [place]2.7.2.[place] Profess[place] [phone] Tn dical nal 220 [facility] 2020-04-11 2020-04-11 [facility] [id number] Univers 13:00:00 13:00:00 [facility] 2020-04-11 2020-04-11 Office [facility] [id number] [id number] Univers 12:43:12 12:58:12 Visit [facility] [id number] it y of [place] 4.2.7.2.686 [place] as Professio [phone] Tn dical nal [address] [facility] 2020-04-08 2020-04-08 Refprabhjot [facility]PRES[facility] [id number] [id number] Univers 00:00:00 00:00:00 [facility] 350.1.13.10 it y of [place] 4.2.7.2.686 [place] as Professio [phone] Tn dical nal [address] [facility] 2020-04-04 2020-04-04 Office [facility] [id number] Univers 13:45:29 14:43:26 Visit [facility] [id number] it y of Surgical 4.2.7.2.686 [place] as Specialti [phone] Tn dical es 198 [facility] 2020-04-04 2020-04-04 Outpatient R [facility] [id number] Univers 14:00:00 14:00:00 DILAN copeland [facility] 2020-04-02 2020-04-02 Viktoriya WittPRES[facility] 1.2.840.114 [id number] Univers 00:00:00 00:00:00 [facility] 350.1.13.10 it y of [place] 4.2.7.2.686 [place] as Professio [phone] [facility] [address] [facility] 2020-04-01 2020-04-01 Nurse Sunny MATHEWS 1.2.840.114 [id number] Univers 00:00:00 00:00:00 Triage d, Alana TORRES 350.1.13.10 ity of [facility] 4.2.7.2.686 [place]is as [phone] [address] 2020-04-01 2020-04-01 Telephone Ketty Sanders .2.840.114 [id number] Univers 00:00:00 00:00:00 Aleks Torres 350.1.13.10 it y of [facility] 4.2.7.2.686 [place] as [phone] [address] 2020-03-28 2020-03-28 Outpatient [facility] [id number] [facility] 14:15:00 14:15:00 DILAN copeland [facility] 2020-03-24 2020-03-24 [facility] Centerprabhjot WittPRES[facility] 1.2.840.114 [id number] Univers 00:00:00 00:00:00 [facility] 350.1.13.10 it y of [place] 4.2.7.2.686 [place] Professio [phone] Tn dical nal [address] [facility] 2020-03-23 2020-03-23 Office ElinaPRES[facility] 1.2.430.203 [id number] Univers 13:17:14 14:30:58 Visit Giovany Bradley 350.1.13.10 i [place] [phone] Tn dical nal 220 [facility] 2020-03-23 2020-03-23 Outpatient R [facility] [id number] Univers 13:30:00 13:30:00 GIOVANY itiraida [facility] 2020-03-23 2020-03-23 Orders Doctor BISI 1.2.840.114 [id number] Univers 00:00:00 00:00:00 Only Unassigned, BRYAN 350.1.13.10 ity of [place] [facility] 4.2.7.2.686 [place] as [phone] [address] 2020-03-20 2020-03-20 Outpatient R [facility]ANNPARK[facility] [id number] Univers 14:45:00 14:45:00 NOEMI min [facility] 2020-03-19 2020-03-19 Telephone ElinaPRES[facility] 1.2.840.114 [id number] Univers 00:00:00 00:00:00 Giovany Claudia Mirna 350.1.13.10 i ty [place] [phone] Tn dic[address] 2020-03-19 2020-03-19 Refill WittPRES[facility] 1.2.840.114 [id number] Univers 00:00:00 00:00:00 [facility] 350.1.13.10 it y of [place] 4.2.7.2.686 [place] Professio [phone] [facility] [address] [facility] 2020-03-16 2020-03-16 Refill AntoinePRESBYTERIAN MED[facility] 1.2.956.503 [id number] 1224 Univers 00:00:00 00:00:00 Giovany Bradley 350.1.13.10 i ty of [place] [phone] Tn dical nal 220 [facility] 2020-03-15 2020-03-15 Telephone EduarPRES[facility]TER[facility] 1.2.441.060 [id number] Univers 00:00:00 00:00:00 [facility] 350.1.13.10 it y of [place] 4.2.7.2.686 [place] Professio [phone] Tn [facility] [address] [facility] 2020-03-13 2020-03-13 Outpatient Hany LEYVA [facility] [id number] Univers 10:25:12 23:59:00 JOSSE ity of [facility] 2020-03-13 2020-03-13 Hospital GordonPRES[facility] 1.2.840.114 [id number] Univers 10:25:12 23:59:00 Encounter Josse Mirna 350.1.13.10 ity of [place] [phone] [facility] [address] 2020-03-13 2020-03-13 Urgent Provider, [facility] Care [facility] 1.2.840.114 [id number] Univers 09:37:13 09:57:13 Care Gordon [facility] 350.1.13.10 ity of [place] 4.2.7.2.686 [place] Professio [phone] [facility] [address] [facility] 2020-03-13 2020-03-13 Outpatient R [facility] [id number] Univers 09:40:00 09:40:00 ity of [facility] 2020-03-09 2020-03-09 Telephone WittPRESBYTER[facility] 1.2.670.896 [id number] Univers 00:00:00 00:00:00 [facility] 350.1.13.10 i ty [place] [phone] [facility] 044 [facility] 2020-03-07 2020-03-07 Telephone [facility] 1.2.840.114 [id number] Univers 00:00:00 00:00:00 Gioavny Bradley 350.1.13.10 i ty [place] [phone] [facility] 220 [facility] 2020-03-03 2020-03-03 Refill WittPRESBYTERIAN [facility] 1.2.840.114 [id number] Univers 00:00:00 00:00:00 [facility] 350.1.13.10 it y of [place] 4.2.7.2.686 [place] Professio [phone] [facility] [address] [facility] 2020-03-02 2020-03-02 Telephone [facility] 1.2.840.114 [id number] Univers 00:00:00 00:00:00 Giovany [place] 350.1.13.10 i ty of [place] [phone] [facility] 220 [facility] 2020-02-29 2020-02-29 Viktoriya WittPRESBYTERIAN MED[facility] 1.2.840.114 [id number] Univers 00:00:00 00:00:00 [facility] 350.1.13.10 it y of [place] 4.2.7.2.686 [place] Professio [phone] [address] Office [facility] 2020-02-28 2020-02-28 [facility] Centerprabhjot [facility] 1.2.840.114 [id number] Univers 00:00:00 00:00:00 [facility] 350.1.13.10 it y of [place] 4.2.7.2.686 [place] Professio [phone] [address] Office [facility] 2020-02-28 2020-02-28 Telephone [facility] 1.2.840.114 [id number] Univers 00:00:00 00:00:00 Giovany Bradley 350.1.13.10 i ty [place] [phone] [address] 2020-02-27 2020-02-27 [facility] Centerprabhjot [facility]anPl[facility] 1.2.840.114 [id number] 03 Univers 00:00:00 00:00:00 [facility] 350.1.13.10 it y of [place] 4.2.7.2.686 [place] Professio [phone] [facility] nal [address] [place] [address] Office [facility] 2020-02-23 2020-02-23 Telephone [facility] 1.2.840.114 [id number] Univers 00:00:00 00:00:00 Giovany [place] 350.1.13.10 i ty of [place]2.[place] [phone] [facility] nal 220 [facility] 2020-02-21 2020-02-21 Telephone TurnerPRESBYTER[facility] 1.2.840.114 [id number] Univers 00:00:00 00:00:00 Giovany Bradley 350.1.13.10 i ty of [place] [phone] Tn dical nal 220 [facility] 2020-02-20 2020-02-20 [facility] Centerprabhjot WittPRESBYTERIAN MED[facility] 1.2.840.114 [id number] Univers 00:00:00 00:00:00 [facility] 350.1.13.10 it y of [place] 4.2.7.2.686 [place] Professio [phone] Tn dical nal [address] [facility] 2020-02-14 2020-02-14 Telephone EduarPRESBYTERIAN [facility] 1.2.860.176 [id number] 6945 Univers 00:00:00 00:00:00 [facility] 350.1.13.10 i ty [place] [phone] Tn dical nal 044 [facility] 2020-02-10 2020-02-10 [facility] Centerprabhjot WittPRESBYTERIAN MED[facility] 1.2.840.114 [id number] Univers 00:00:00 00:00:00 [facility] 350.1.13.10 it y of [place] 4.2.7.2.686 [place] Professio [phone] Tn dical nal [address] [facility] 2020-02-08 2020-02-08 [facility] Centerprabhjot WittPRESBYTERIAN MED[facility] 1.2.840.114 [id number] Univers 00:00:00 00:00:00 [facility] 350.1.13.10 i ty of [place].2.[place] [phone] Tn dical nal 044 [facility] 2020-02-02 2020-02-02 [facility] Centerprabhjot WittPRESBYTERIAN MED[facility] 1.2.840.114 [id number] Univers 00:00:00 00:00:00 [facility] 350.1.13.10 it y of [place] 4.2.7.2.686 [place] Professio [phone] Tn dical nal [address] [facility] 2020-02-02 2020-02-02 Telephone [facility]Dav[facility] 1.2.840.114 [id number] Univers 00:00:00 00:00:00 Giovany Bradley 350.1.13.10 i ty [place] [phone] [facility] nal 220 [facility] 2020-01-31 2020-01-31 [facility] Centerprabhjot WittPRESBYTERIAN MED[facility] 1.2.840.114 [id number] 70 Univers 00:00:00 00:00:00 [facility] 350.1.13.10 it y of [place] 4.2.7.2.686 [place] Professio [phone] [facility] nal [address] [place] [address] 2020-01-26 2020-01-26 [facility] ElinaPRESBYTER[facility] 1.2.460.187 [id number] [id number] Univers 00:00:00 00:00:00 Giovany Bradley 350.1.13.10 i ty [place] [phone] [facility] nal [address] [place] [address] 2020-01-24 2020-01-24 [facility] Centerprabhjot WittPRESBYTERIAN MED[facility] 1.2.840.114 [id number] 34 Univers 00:00:00 00:00:00 [facility] 350.1.13.10 it y of [place] 4.2.7.2.686 [place] Professio [phone] Tn dical nal [address] [place] [address] 2020-01-23 2020-01-23 Telephone [facility] 1.2.840.114 [id number] Univers 00:00:00 00:00:00 Giovany Bradley 350.1.13.10 i ty [place].2.[place] [phone] [facility] nal [address] [place] [address] 2020-01-18 2020-01-18 [facility] Centerprabhjot WittPRESBYTERIAN MED[facility] 1.2.840.114 [id number] Univers 00:00:00 00:00:00 [facility] 350.1.13.10 it y of [place] 4.2.7.2.686 [place] Professio [phone] [facility] [address] [place] [address] 2020-01-09 2020-01-09 Office EduarPRES[facility]TER[facility] 1.2.840.114 [id number] Univers 11:54:37 12:09:37 Visit [facility] 350.1.13.10 i ty [place] [phone] [address] 2020-01-09 2020-01-09 Outpatient R EDUAR [facility] [id number] Univers 12:00:00 12:00:00 JEFFERSON copeland [facility] 2019-12-30 2019-12-30 Telephone [facility]PRES[facility] 1.2.828.012 [id number] Univers 00:00:00 00:00:00 [facility] 350.1.13.10 it y of [place] 4.2.7.2.686 [place] Professio [phone] [address] 2019-12-29 2019-12-29 Telephone [facility]arPRES[facility]TER[facility] 1.2.326.587 [id number] 2027 Univers 00:00:00 00:00:00 [facility] 350.1.13.10 it y of [place] 4.2.7.2.686 [place] Professio [phone] [address] 2019-12-27 2019-12-27 Telephone AntoinePRESBYTERIAN MED[facility] 1.2.840.114 [id number] Univers 00:00:00 00:00:00 Giovany Bradley 350.1.13.10 i ty [place] [phone] [facility] nal 220 [facility] 2019-12-27 2019-12-27 Refill WittPRESBYTERIAN MED[facility] 1.2.840.114 [id number] Univers 00:00:00 00:00:00 [facility] 350.1.13.10 it y of [place] 4.2.7.2.686 [place] Professio [phone] [address] 2019-12-20 2019-12-20 Refprabhjot WittPRESBYTERIAN MEDICAL [facility] 1.2.840.114 [id number] Univers 00:00:00 00:00:00 [facility] 350.1.13.10 it y of [place] 4.2.7.2.686 [place] Professio [phone] [address] Office [facility] 2019-12-15 2019-12-19 Urgent Provider, [facility] Urgent Care [facility] 1.2.840.114 [id number] Univers 10:46:49 09:53:57 Care Josse Leyva 350.1.13.10 ity of [place] 4.2.7.2.686 [place] Professio [phone] [address] Office Building One 2019-12-19 2019-12-19 Telephone Gordon [facility] 1.2.702.244 [id number] Univers 00:00:00 00:00:00 [facility] 350.1.13.10 it y of [place] 4.2.7.2.686 [place] Professio [phone] [address] Office [facility] 2019-12-16 2019-12-16 Viktoriya Witt [facility] 1.2.840.114 [id number] Univers 00:00:00 00:00:00 [facility] 350.1.13.10 it y of [place] 4.2.7.2.686 [place] Professio [phone] [address] Office [facility] 2019-12-16 2019-12-16 Viktoriya Witt [facility] 1.2.840.114 [id number] Univers 00:00:00 00:00:00 [facility] 350.1.13.10 it y of [place] 4.2.7.2.686 [place] Professio [phone] [address] Office [facility] 2019-12-15 2019-12-15 Outpatient R [facility] [id number] Univers 11:00:00 11:00:00 ity of [facility] 2019-12-13 2019-12-13 Outpatient R [facility] [id number] Univers 09:40:00 09:40:00 ity of [facility] 2019-12-08 2019-12-08 Viktoriya WittPRESBYTERIAN MED[facility] 1.2.840.114 [id number] Univers 00:00:00 00:00:00 [facility] 350.1.13.10 it y of [place] 4.2.7.2.686 [place] Professio [phone] Tn dicms nal [address] [facility] 2019-12-01 2019-12-01 Refprabhjot WittPRESBYTERIAN MED[facility] 1.2.840.114 [id number] 00 Univers 00:00:00 00:00:00 [facility] 350.1.13.10 it y of [place] 4.2.7.2.686 [place] Professio [phone] [facility] nal [address] [place] [address] One 2019-11-30 2019-11-30 [facility] Centerprabhjot WittPRESBYTERIAN MED[facility] 1.2.840.114 [id number] 78 Univers 00:00:00 00:00:00 [facility] 350.1.13.10 i ty [place] [phone] Tn dicms nal [address] [place] [address] 2019-11-29 2019-11-29 Telephone Pob1, Acute [facility] 1.2.840.114 [id number] Univers 00:00:00 00:00:00 [facility] Health 350.1.13.10 ity of [place] 4.2.7.2.686 [place] Professio [phone] [facility] nal 044 [facility] 2019-11-28 2019-11-28 Refprabhjot WittPRESBYTERIAN MED[facility] 1.2.840.114 [id number] Univers 00:00:00 00:00:00 [facility] 350.1.13.10 it y of [place] 4.2.7.2.686 [place] Professio [phone] Tn dical nal [address] [place] [address] 2019-11-25 2019-11-25 Security System Analyst 2, Adc Lab [facility] 1.2.840.114 [id number] Univers 08:03:12 08:18:12 Visit Eduar [facility] 350.1.13.10 ity of [place] [phone] [facility] 353 [facility] 2019-11-25 2019-11-25 Outpatient R [facility] [id number] Univers 08:00:00 08:00:00 JEFFERSON copeland [facility] 2019-11-25 2019-11-25 Telephone [facility]PRES[facility] 1.2.732.570 [id number] Univers 00:00:00 00:00:00 [facility] 350.1.13.10 it y of [place] 4.2.7.2.686 [place] Professio [phone] [address] 2019-11-24 2019-11-24 [facility] 1.2.840.114 [id number] Univers 00:00:00 00:00:00 Keila Bradley 350.1.13.10 i ty [place] [phone] [address] 2019-11-24 2019-11-24 Telephone BenPRESBYTERIAN [facility] 1.2.856.804 [id number] [id number] Univers 00:00:00 00:00:00 Rosette Evans 350.1.13.10 i ty of [place] 4.2.7.2.686 [place] Professio [phone] [address] 2019-11-23 2019-11-23 Outpatient R [facility] 1026 [id number] Univers 15:29:34 23:59:00 KEILA copeland [facility] 2019-11-23 2019-11-23 [facility] 1.2.840.114 [id number] Univers 15:15:00 23:59:00 Encounter Keila [place] 350.1.13.10 ity of [place] [phone] [facility] [address] [place] [address] 2019-11-23 2019-11-23 Urgent Pob1, Acute Care Clinic [facility] 1. 2.840.114 [id number] Univers 14:33:27 14:53:27 Care Keila Delcid 350.1.13.10 ity of [place] 4.2.7.2.686 [place] Professio [phone] [address] Office [facility] 2019-11-23 2019-11-23 Outpatient R [facility] [id number] Univers 14:40:00 14:40:00 ity of [facility] 2019-11-23 2019-11-23 Refill EduarPRES[facility] 1.2.840.114 [id number] Univers 00:00:00 00:00:00 [facility] 350.1.13.10 it y of [place] 4.2.7.2.686 [place] Professio [phone] [address] 2019-11-23 2019-11-23 Refill DarielPRESBYTERIAN MED[facility] 1.2.840.114 [id number] Univers 00:00:00 00:00:00 [facility] 350.1.13.10 it y of [place] 4.2.7.2.686 [place] Professio [phone] [address] 2019-11-16 2019-11-16 Telephone ElinaPRESBYTER[facility] 1.2.840.114 [id number] Univers 00:00:00 00:00:00 Giovany Bradley 350.1.13.10 i ty [place] [phone] [facility] 220 [facility] 2019-11-15 2019-11-15 Refill EduarPRES[facility] 1.2.840.114 [id number] Univers 00:00:00 00:00:00 [facility] 350.1.13.10 it y of [place] 4.2.7.2.686 [place] Professio [phone] [address] 2019-11-10 2019-11-10 Office WittPRESBYTERIAN MED[facility] 1.2.840.114 [id number] Univers 08:41:49 08:56:49 Visit Jefferson [facility] 350.1.13.10 i ty [place] 4.2.[place].2.[place] [phone] [address] 2019-11-10 2019-11-10 Outpatient R EDUAR [facility] [id number] Univers 08:45:00 08:45:00 JEFFERSON copeland [facility] 2019-11-07 2019-11-07 Telephone [facility]PRES[facility] 1.2.417.437 [id number] Univers 00:00:00 00:00:00 [facility] 350.1.13.10 it y of [place] 4.2.7.2.686 [place] Professio [phone] Tn dical nal 044 [facility] 2019-11-02 2019-11-02 [facility] Centerprabhjot WittPRESBYTERIAN [facility] 1.2.840.114 [id number] Univers 00:00:00 00:00:00 [facility] 350.1.13.10 it y of [place] 4.2.7.2.686 [place] Professio [phone] Tn dical nal 044 [facility] 2019-10-26 2019-10-26 [facility] Centerprabhjot WittPRESBYTERIAN [facility] 1.2.840.114 [id number] Univers 00:00:00 00:00:00 [facility] 350.1.13.10 it y of [place] 4.2.7.2.686 [place] Professio [phone] Tn dical nal 044 [facility] 2019-10-24 2019-10-24 Telephone [facility]PRES[facility] 1.2.524.629 [id number] [id number] Univers 00:00:00 00:00:00 [facility] 350.1.13.10 it y of [place] 4.2.7.2.686 [place] Professio [phone] Tn shiraal nal 044 [facility] 2019-10-21 2019-10-21 [facility]PRES[facility] 1.2.663.785 [id number] 6800 Univers 00:00:00 00:00:00 Giovany Bradley 350.1.13.10 i [place] [phone] [facility] 220 [facility] 2019-10-18 2019-10-18 Outpatient R [facility] [id number] Univers 08:20:00 08:20:00 ity of [facility] 2019-10-14 2019-10-14 Telephone [facility]PRES[facility] 1.2.840.114 [id number] Univers 00:00:00 00:00:00 Giovany Bradley 350.1.13.10 i ty [place] [phone] [facility] 220 [facility] 2019-10-14 2019-10-14 Telephone ElinaPRES[facility] 1.2.840.114 [id number] Univers 00:00:00 00:00:00 Giovany Bradley 350.1.13.10 i ty [place] [phone] [facility] 220 [facility] 2019-10-13 2019-10-13 Telephone [facility]PRES[facility] 1.2.072.210 [id number] 7356 Univers 00:00:00 00:00:00 [facility] 350.1.13.10 it y of [place] 4.2.7.2.686 [place] Professio [phone] [facility] [address] [facility] 2019-10-12 2019-10-12 Refprabhjot WittPRESBYTERIAN MED[facility] 1.2.840.114 [id number] Univers 00:00:00 00:00:00 [facility] 350.1.13.10 it y of [place] 4.2.7.2.686 [place] Professio [phone] [facility] [address] [facility] 2019-10-11 2019-10-11 Telephone [facility]PRES[facility] 1.2.879.204 [id number] [id number] Univers 00:00:00 00:00:00 [facility] 350.1.13.10 it y of [place] 4.2.7.2.686 [place] Professio [phone] [facility] [address] [facility] 2019-10-11 2019-10-11 Orders Doctor BISI 1.2.840.114 [id number] Univers 00:00:00 00:00:00 Only Unassigned, BRYAN 350.1.13.10 ity of [place] [facility] 4.2.7.2.686 Sarkis as [phone] [address] 2019-10-04 2019-10-04 Refprabhjot WittPRESBYTERIAN [facility] 1.2.840.114 [id number] 01 Univers 00:00:00 00:00:00 [facility] 350.1.13.10 it y of [place] 4.2.7.2.686 [place] as Professio [phone] Tn ashley nal Luisa [address] Office Building One 2019-09-29 2019-09-29 Juan Witt [facility] 1.2.994.506 5300 6005 Univers 00:00:00 00:00:00 [facility] 350.1.13.10 it y of [place] 4.2.7.2.686 [place] as Professio [phone] Tn ashley nal [address] [place] [address] Office Building One 2019-09-29 2019-09-29 Juan WittPRESBYTER[facility] 1.2.813.209 [id number] 0219 Univers 00:00:00 00:00:00 [facility] 350.1.13.10 it y of [place] 4.2.7.2.686 [place] as Professio [phone] Tn ashley nal [address] [place] [address] Office [facility] One 2019-09-28 2019-09-28 Refill [facility]PRES[facility] 1.2.840.114 [id number] Univers 00:00:00 00:00:00 [facility] 350.1.13.10 it y of [place] 4.2.7.2.686 [place] as Professio [phone] Tn ashley nal [address] [place] [address] Office Building One 2019-09-28 2019-09-28 Juan WittPRESBYTER[facility] 1.2.365.496 [id number] 0209 Univers 00:00:00 00:00:00 [facility] 350.1.13.10 it y of [place] 4.2.7.2.686 [place] as Professio [phone] Tn ashley nal [address] [place] [address] Office Building One 2019-09-27 2019-09-27 Juan WittPRESBYTER[facility] 1.2.608.434 [id number] 1469 Univers 00:00:00 00:00:00 [facility] 350.1.13.10 it y of [place] 4.2.7.2.686 [place] as Professio [phone] Tn shiraal nal [address] [place] [address] Office Building One 2019-09-26 2019-09-26 Office [facility]PRES[facility] [id number] Univers 14:15:35 14:45:35 Visit [facility] 350.1.13.10 it y of [place] 4.2.7.2.686 [place] as Professio [phone] Tn dical nal [address] [facility] 2019-09-26 2019-09-26 Outpatient R EDUAR [facility] [id number] Univers 14:30:00 14:30:00 JEFFERSON copeland [facility] 2019-09-26 2019-09-26 Orders Doctor MATHEWS [id number] Univers 00:00:00 00:00:00 Only Unassigned, BRYAN 350.1.13.10 ity of [place] [facility] 4.2.7.2.686 Sarkis as [phone] [facility] [address] 2019-09-23 2019-09-23 [facility] [id number] Univers 13:30:00 14:11:38 GIOVANY francoiraida [facility] 2019-09-23 2019-09-23 Office [facility] [id number] Univers 13:25:38 14:11:38 Visit Giovany Bradley 350.1.13.10 i ty [place]2.7.2.[place] [phone] Tn dical [facility] 220 [facility] 2019-09-23 2019-09-23 Nurse Ciara Alvarez 1.2.840.114 [id number] Univers 00:00:00 00:00:00 Triage BRYAN 350.1.13.10 it y of HOSPITAL 4.2.7.2.686 [place]arkis as [phone] [facility] [address] 2019-09-16 2019-09-16 [facility] [id number] Univers 00:00:00 00:00:00 [facility] 350.1.13.10 it y of [place] 4.2.7.2.686 [place] as Professio [phone] [facility] [address] [facility] 2019-09-13 2019-09-13 Telephone [facility] [id number] Univers 00:00:00 00:00:00 [facility] 350.1.13.10 it y of [place] 4.2.7.2.686 [place] as Professio [phone] Tn dical nal [address] [facility] 2019-09-13 2019-09-13 Orders Doctor BISI 1.2.840.114 [id number] Univers 00:00:00 00:00:00 Only Unassigned, BRYAN 350.1.13.10 ity of [place] [facility] 4.2.7.2.686 Sarkis as [phone] [address] 2019-09-12 2019-09-12 Viktoriya [facility] 1.2.840.114 [id number] Univers 00:00:00 00:00:00 [facility] 350.1.13.10 it y of [place] 4.2.7.2.686 [place] Professio [phone] Tn dical nal [address] [facility] 2019-09-08 2019-09-08 Vik[facility]oriya [facility] 1.2.840.114 [id number] Univers 00:00:00 00:00:00 [facility] 350.1.13.10 it y of [place] 4.2.7.2.686 [place] Professio [phone] Tn dical nal [address] [place] [address] Office [facility] One 2019-09-05 2019-09-05 Viktoriya [facility] 1.2.840.114 [id number] Univers 00:00:00 00:00:00 [facility] 350.1.13.10 it y of [place] 4.2.7.2.686 [place] Professio [phone] Tn dical nal [address] [facility] 2019-08-25 2019-08-25 Viktoriya [facility] 1.2.840.114 [id number] Univers 00:00:00 00:00:00 [facility] 350.1.13.10 it y of [place] 4.2.7.2.686 [place] Professio [phone] Tn dical nal [address] [facility] 2019-08-25 2019-08-25 Viktoriya [facility] 1.2.840.114 [id number] Univers 00:00:00 00:00:00 [facility] 350.1.13.10 it y of [place] 4.2.7.2.686 [place] Professio [phone] [facility] [address] [facility] One 2019-08-23 2019-08-23 Refill [facility] 1.2.767.793 [id number] Univers 00:00:00 00:00:00 Giovany Taylor [place] 350.1.13.10 i ty [place] [phone] [facility] 220 [facility] 2019-08-17 2019-08-17 Telephone [facility] 1.2.840.114 [id number] Univers 00:00:00 00:00:00 Giovany [place] 350.1.13.10 i ty [place] [phone] [facility] 220 [facility] 2019-08-15 2019-08-15 Refprabhjot [facility] 1.2.840.114 [id number] Univers 00:00:00 00:00:00 [facility] 350.1.13.10 it y of [place] 4.2.7.2.686 [place] Professio [phone] [address] Office [facility] One 2019-08-13 2019-08-13 Refprabhjot WittPRES[facility] 1.2.840.114 [id number] Univers 00:00:00 00:00:00 [facility] 350.1.13.10 it y of [place] 4.2.7.2.686 [place] Professio [phone] [facility] nal [address] [place] [address] Office [facility] One 2019-04-15 2019-04-15 Refprabhjot [facility] 1.2.840.114 [id number] Univers 00:00:00 00:00:00 [facility] 350.1.13.10 it y of [place] 4.2.7.2.686 [place] Professio [phone] [address] Office [facility] One 2019-04-13 2019-04-13 Office [facility] 1.2.840.114 [id number] Univers 13:52:51 14:14:54 Visit [facility] 350.1.13.10 it y of [place] 4.2.7.2.686 [place] Professio [phone] Tn dical nal 044 [facility] One 2019-04-13 2019-04-13 Orders Doctor BISI 1.2.840.114 [id number] Univers 00:00:00 00:00:00 Only Unassigned, BRYAN 350.1.13.10 ity [facility] [place] [facility] 4.2.7.2.686 Sarkis as [phone] [address] 2019-04-07 2019-04-07 [facility] 1.2.840.114 [id number] Univers 00:00:00 00:00:00 [facility] 350.1.13.10 it y of [place] 4.2.7.2.686 [place] Professio [phone] [facility]44 [facility] One 2019-04-05 2019-04-05 Telephone [facility] 1.2.840.114 [id number] Univers 00:00:00 00:00:00 Giovany [place] 350.1.13.10 i [place].2.[place] [phone] Tn dical nal 220 [facility] 2019-04-05 2019-04-05 [facility] 1.2.840.114 [id number] Univers 00:00:00 00:00:00 [facility] 350.1.13.10 it y of [place] 4.2.7.2.686 [place] Professio [phone] Tn dical nal 044 [facility] One 2019-03-31 2019-03-31 [facility] 1.2.840.114 [id number] 05 Univers 00:00:00 00:00:00 [facility] 350.1.13.10 it y of [place] 4.2.7.2.686 [place] Professio [phone] [facility]44 [facility] One 2019-03-29 2019-03-29 Telephone [facility] 1.2.840.114 [id number] Univers 00:00:00 00:00:00 Giovany Claudia [place] 350.1.13.10 i ty [place].2.[place] [phone] [facility] 220 [facility] 2019-03-29 2019-03-29 Orders Doctor BISI 1.2.840.114 [id number] Univers 00:00:00 00:00:00 Only Unassigned, BRYAN 350.1.13.10 ity of [place] [facility] 4.2.7.2.686 Sarkis as [phone] [address] 2019-03-21 2019-03-21 [facility] 1.2.840.114 [id number] Univers 00:00:00 00:00:00 Giovany Taylor [place] 350.1.13.10 i ty [place] [phone] [facility] 220 [facility] 2019-03-17 2019-03-17 [facility] 1.2.840.114 [id number] Univers 00:00:00 00:00:00 [facility] 350.1.13.10 it y [place] 4.2.7.2.686 [place] Professio [phone] [address] One 2019-03-17 2019-03-17 Viktoriya WittPRES[facility] 1.2.840.114 [id number] Univers 00:00:00 00:00:00 [facility] 350.1.13.10 it y [place] 4.2.7.2.686 [place] Professio [phone] [address] One 2019-03-09 2019-03-09 Viktoriya WittPRES[facility] 1.2.840.114 [id number] Univers 00:00:00 00:00:00 [facility] 350.1.13.10 it y of [place] 4.2.7.2.686 [place] Professio [phone] [address] One 2019-03-03 2019-03-03 Viktoriya [facility] 1.2.840.114 [id number] Univers 00:00:00 00:00:00 [facility] 350.1.13.10 it [place] 4.2.7.2.686 [place] Professio [phone] Tn dical nal 044 [facility] One 2019-02-28 2019-02-28 Viktoriya Witt [facility] 1.2.840.114 [id number] Univers 00:00:00 00:00:00 [facility] 350.1.13.10 it y of [place] 4.2.7.2.686 [place] as Professio [phone] Tn dical nal 044 [facility] One 2018-11-01 2018-11-01 Viktoriya Witt [facility] 1.2.840.114 [id number] Univers 00:00:00 00:00:00 [facility] 350.1.13.10 it y of [place] 4.2.7.2.686 [place] Professio [phone] Tn dical nal 044 [facility] One Results Test Description Test Time Test Comments Results Result Comments Source COMP. METABOLIC PANEL (39306) 2022-07-19 21:35:09 Test Item Value Reference Range Interpretation Comme nts NA (test code = 1787899248) 139 mmol/L 135-145 K (test code = 0804159118) 4.1 mmol/L 3.5-5.0 CL (test code = 6595360653) 102 mmol/L 98-108 CO2 TOTAL (test code = 2252502241) 29 mmol/L 23-31 AGAP (test code = 1873673829) 2-16 BUN (test code = 8005942394) 12 mg/dL 7-23 GLUCOSE (test code = 8883624590) 236 mg/dL 70-110 H CREATININE (test code = 0.59 mg/dL 0.50-1.04 3365650767) TOTAL BILI (test code = 0.5 mg/dL 0.1-1.8 4932000848) CALCIUM (test code = 5954288272) 8.8 mg/dL 8.6-10.6 T PROTEIN (test code = 4232726607) 7.0 g/dL 6.3-8.2 ALBUMIN (test code = 9704068516) 4.2 g/dL 3.5-5.0 ALK PHOS (test code = 2064822316) 77 U/L 34-122 ALTv (test code = 1742-6) 27 U/L 5-35 AST(SGOT) (test code = 4877004639) 22 U/L 13-40 eGFR (test code = 7751753845) mL/min/1.73m2 DNEISHA (test code = DENISHA) Association of Glomerular [...] tests). Lab Interpretation (test code = Abnormal 55202-0) General acute hospital WITH [id number] 21:11:06 Test Item Value Reference Range Interpretation Comments WBC (test code = See_Comment [Automated 2915-2) message] The sy stem which generated this result transmitted reference range : 4.30 - 11.10 10*3/?L. The reference range was not used to interpret this result as normal/abnormal . RBC (test code = See_Comment [Automated 539-8) message] The sy stem which generated this [...] RDW-SD (test code = 43.3 fL 39.0-49.9 42335-4) RDW-CV (test code = 14.8 % 12.0-15.5 788-0) PLT (test code = See_Comment [Automated 777-3) message] The sy stem which generated this result transmitted reference range : 166 - 358 10*3/ ?L. The reference r victorina was not used to interpret this result as normal/abnormal . MPV (test code = 11.0 fL 9.5-12.9 84356-8) NRBC/100 WBC (test See_Comment [Automat ed code = 1810775844) message] The system which generated this result transmitted reference range : 0.0 - 10.0 /100 WBCs. The refer ence range was not u sed to interpret th is result as normal/abnormal . NRBC x10^3 (test code See_Comment [Auto mated = 4567705529) message] The s ystem which generated this result transmitted reference range : 10*3/?L. The reference range was not used to interpret this result as normal/abnormal . GRAN MAT (NEUT) % 66.5 % (test code = 770-8) IMM GRAN % (test code 0.80 % = 5068435612) LYMPH % (test code = 21.8 % 736-9) MONO % (test code = 7.3 % 5905-5) EOS % (test code = 2.8 % 713-8) BASO % (test code = 0.8 % 706-2) GRAN MAT x10^3(ANC) 7.14 10*3/uL 1.88-7.09 H (test code = 9038735008) IMM GRAN x10^3 (test 0.09 10*3/uL 0.00-0.06 H code = 7491272826) LYMPH x10^3 (test code 2.35 10*3/uL 1.32-3.29 = 731-0) MONO x10^3 (test code 0.79 10*3/uL 0.33-0.92 = 742-7) EOS x10^3 (test code = 0.30 10*3/uL 0.03-0.39 711-2) BASO x10^3 (test code 0.09 10*3/uL 0.01-0.07 H = 704-7) Lab Interpretation Abnormal (test code = 63387-1) [facility] [id number] 16:47:33 Test Item Value Reference Interpretation Comments Range TROPONIN I (test 0.005 ng/mL See_Comment [Automated code = 4129526154) message] The system which generated this result [...] biotin. Lab Interpretation Normal (test code = 07330-6) [facility] (71400)2022-05-29 16:36:15 Test Item Value Reference Range Interpretation Comments NA (test code = 137 mmol/L 135-145 6613446757) K (test code = 4.4 mmol/L 3.5-5.0 7860500339) CL (test code = 100 mmol/L 98-108 6644050674) CO2 TOTAL (test code = 22 mmol/L 23-31 L 2209119282) AGAP (test code = 2-16 7833816391) BUN (test code = 14 mg/dL 7-23 5015182645) GLUCOSE (test code = 190 mg/dL 70-110 H 6396276679) CREATININE (test code = 0.70 mg/dL 0.50-1.04 4843518306) TOTAL BILI (test code = 0.3 mg/dL 0.1-1.1 5783391668) CALCIUM (test code = 9.6 mg/dL 8.6-10.6 3344563115) T PROTEIN (test code = 6.8 g/dL 6.3-8.2 9909864797) ALBUMIN (test code = 4.2 g/dL 3.5-5.0 4317731283) ALK PHOS (test code = 67 U/L 34-122 1835634685) ALTv (test code = 40 U/L 5-35 H 1742-6) AST(SGOT) (test code = 44 U/L 13-40 H 8621717195) eGFR (test code = mL/min/1.73m2 4039749716) DENISHA (test code = DENISHA) Association of [...] tests). Lab Interpretation Abnormal (test code = 40016-4) [facility] 16:35:55 Test Item Value Reference Range Interpretation Comments LIPASE (test code = 1797925948) 85 U/L 0-220 Lab Interpretation (test code = Normal 57960-6) [facility]CBC WITH [id number] 16:18:33 Test Item Value Reference Range Interpretation Comments WBC (test code = See_Comment [Automated 3690-2) message] The sy stem which generated this [...] RDW-SD (test code = 43.2 fL 39.0-49.9 10354-3) RDW-CV (test code = 15.1 % 12.0-15.5 788-0) PLT (test code = See_Comment [Automated 777-3) message] The sy stem which generated this result transmitted reference range : 166 - 358 10*3/ ?L. The reference r victorina was not used to interpret this result as normal/abnormal . MPV (test code = 10.3 fL 9.5-12.9 87929-4) NRBC/100 WBC (test See_Comment [Automat ed code = 0937789863) message] The system which generated this result transmitted reference range : 0.0 - 10.0 /100 WBCs. The refer ence range was not u sed to interpret th is result as normal/abnormal . NRBC x10^3 (test code See_Comment [Auto mated = 1612195901) message] The s ystem which generated this result transmitted reference range : 10*3/?L. The reference range was not used to interpret this result as normal/abnormal . GRAN MAT (NEUT) % 66.7 % (test code = 770-8) IMM GRAN % (test code 0.80 % = 5306385462) LYMPH % (test code = 23.3 % 736-9) MONO % (test code = 5.2 % 5905-5) EOS % (test code = 3.0 % 713-8) BASO % (test code = 1.0 % 706-2) GRAN MAT x10^3(ANC) 6.50 10*3/uL 1.88-7.09 (test code = 2360262546) IMM GRAN x10^3 (test 0.08 10*3/uL 0.00-0.06 H code = 4382505034) LYMPH x10^3 (test code 2.27 10*3/uL 1.32-3.29 = 731-0) MONO x10^3 (test code 0.51 10*3/uL 0.33-0.92 = 742-7) EOS x10^3 (test code = 0.29 10*3/uL 0.03-0.39 711-2) BASO x10^3 (test code 0.10 10*3/uL 0.01-0.07 H = 704-7) Lab Interpretation Abnormal (test code = 75969-0) [facility] HEMOGLOBIN A1C [id number] 21:18:00 Test Item Value Reference Range Interpretation Comments POCT HBA1C (test code = 4548-4) 7.5 % 4-6 A Lab Interpretation (test code = Abnormal 80560-5) [facility] HEMOGLOBIN A1C [id number] 21:18:00 Test Item Value Reference Range Interpretation Comments POCT HBA1C (test code = 4548-4) 7.5 % 4-6 A Lab Interpretation (test code = Abnormal 77362-6) [facility]
--- NOTE | 2022-08-03 13:55 | RAD REPORT ---
EXAM DESCRIPTION: RAD - Chest Pa And Lat (2 Views) - 08/03/2022 1:47 pm CLINICAL HISTORY: SOB COMPARISON: Portable 07/29/2022 and 07/26/2022 TECHNIQUE: Frontal and lateral views of the chest were obtained. FINDINGS: The lungs are normal volume. Patient has a baseline chronic interstitial lung pattern. Int erstitial markings are prominent in the mid and lower lung cordero similar to slightly worse than the prior imaging. Patient has shown worsening lung parenchymal disease over 3 serial studies. No one de nse area consolidation. Left upper extremity PICC line remains in place. Heart size is normal and central vasculature is within normal limits. No pleural effusion or pneumo thorax seen. No acute bony finding noted. No aortic abnormality. IMPRESSION: Interstitial edema or infiltrate pattern, worse in the lung bases, superimposed on chron ic interstitial lung disease.
[2022-08-03 14:50] LABS: SARS-COV-2 RT PCR NEGATIVE (NEGATIVE)
--- NOTE | 2022-08-03 15:02 | RAD REPORT ---
EXAM DESCRIPTION: US - Extrem Venous W Compress Joseph - 08/03/2022 2:43 pm CLINICAL HISTORY: SOB COMPARISON: None. TECHNIQUE: Real-time sonographic evaluation of the bilateral lower extremity common femoral, superfi cial femoral, popliteal and posterior tibial veins was performed. FINDINGS: Normal compressibility, flow augmentation, phasic flow and spontaneous flow are identified in the left and right lower extremity common femoral, superficial femoral, popliteal and posterior t ibial veins. No intraluminal filling defects seen. IMPRESSION: No DVT in either lower extremity.
--- NOTE | 2022-08-03 16:01 | RAD REPORT ---
EXAM DESCRIPTION: CT - Chest For Pe Angio - 08/03/2022 3:15 pm CLINICAL HISTORY: SOB, recent surgery, diabetic COMPARISON: Chest Pa And Lat (2 Views) dated 08/03/2022 TECHNIQUE: Dynamically enhanced 3 mm thick images of the chest were obtained during administration o f approximately 150mL Isovue 370 IV contrast. Coronal and oblique MIP reconstruction images were gene rated and reviewed. Exam utilizes a protocol to evaluate the pulmonary arterial tree. All CT scans are performed using dose optimization technique as appropriate and may include automated exposure control or mA/KV adjustment according to patient size. FINDINGS: Contrast density within the pulmonary arterial tree is not optimal which may be the cardia c function. No pulmonary emboli identified and none suspected. The far peripheral subsegmental branch evaluation is limited by the contrast density respiratory motion. The aorta as imaged shows no acute or suspicious finding. No pericardial thickening or effusion. No focal mass or consolidation. Interstitial markings are prominent. Trace bilateral pleural effusion s are present. No pleural thickening or pleural based mass. There is no pneumothorax. Old rib trauma noted on the left. No mediastinal or hilar suspicious masses. No chest wall masses or abnormal axillary lymphadenopathy. IMPRESSION: No pulmonary emboli identified. Interstitial thickening from edema or infiltrate. No masslike consolidation.
[2022-08-03] MEDS ORDERED: FUROSEMIDE 20 MG/ 2ML VIAL ONE (16:25)
--- NOTE | 2022-08-03 16:32 | EDPHYS ---
Physician Documentation [facility] Name: Jose Edmond Age: 62 yrs Sex: Female : 1960 Arrival Date: 08/03/2022 Time: 13:19 Bed 10 Private MD: ED Physician Chris Krueger HPI: 08/03 14:48 This 62 yrs old Female presents to ER via Wheelchair with complaints of Shortness Of snw Breath, Fever. 14:48 The patient has shortness of breath at rest. Onset: The symptoms/episode began/occurred snw when pt had surgery on her foot last month. Duration: The symptoms are continuous. Associated signs and symptoms: Pertinent positives: This patient does not have any pertinent positive signs or symptoms associated with shortness of breath. Severity of symptoms: At their worst the symptoms were moderate. The patient has not experienced similar symptoms in the past. as noted. Historical: - Allergies: 13:35 Sulfa (Sulfonamide Antibiotics); kr3 13:35 TETRACYCLINES; kr3 - Home Meds: 13:35 Clonazepam Oral [Active]; Hydrocodone-Acetaminophen Oral [Active]; Metformin Oral kr3 [Active]; tizanidine Oral [Active]; Quinapril HCl Oral [Active]; 16:33 Furosemide Oral as needed [Active]; kb3 - PMHx: 13:35 diabetes mellitus; Hypertensive disorder; Chronic obstructive lung disease; kr3 - PSHx: 13:35 back; section; Cholecystectomy; hernia; hysterectomy; kr3 16:33 Foot sx; kb3 - Immunization history:: Adult Immunizations up to date. - Social history:: Smoking status: Reported history of juuling and/or vaping. ROS: 14:47 Constitutional: Negative for fever, chills, and weight loss, Eyes: Negative for injury, snw pain, redness, and discharge, ENT: Negative for injury, pain, and discharge, Neck: Negative for injury, pain, and swelling, Cardiovascular: Negative for chest pain, palpitations, and edema, Abdomen/GI: Negative for abdominal pain, nausea, vomiting, diarrhea, and constipation, Back: Negative for injury and pain, : Negative for injury, bleeding, discharge, and swelling, MS/Extremity: Negative for injury and deformity, Skin: Negative for injury, rash, and discoloration, Neuro: Negative for headache, weakness, numbness, tingling, and seizure, Psych: Negative for depression, anxiety, suicide ideation, homicidal ideation, and hallucinations. 14:47 Respiratory: Positive for shortness of breath, at rest. Exam: 14:44 Constitutional: This is a well developed, well nourished patient who is awake, alert, snw and in no acute distress. Head/Face: Normocephalic, atraumatic. Eyes: Pupils equal round and reactive to light, extra-ocular motions intact. Lids and lashes normal. Conjunctiva and sclera are non-icteric but pale. Cornea within normal limits. Periorbital areas with no swelling, redness, or edema. ENT: Nares patent. No nasal discharge, no septal abnormalities noted. Tympanic membranes are normal and external auditory canals are clear. Oropharynx with no redness, swelling, or masses, exudates, or evidence of obstruction, uvula midline. Mucous membranes moist. Neck: Trachea midline, no thyromegaly or masses palpated, and no cervical lymphadenopathy. Supple, full range of motion without nuchal rigidity, or vertebral point tenderness. No Meningismus. Chest/axilla: Normal chest wall appearance and motion. Nontender with no deformity. No lesions are appreciated. Cardiovascular: Regular rate and rhythm with a normal S1 and S2. No gallops, murmurs, or rubs. Normal PMI, no JVD. No pulse deficits. 14:44 Abdomen/GI: Soft, non-tender, with normal bowel sounds. No distension or tympany. No guarding or rebound. No evidence of tenderness throughout. Back: No spinal tenderness. No costovertebral tenderness. Full range of motion. 14:44 Neuro: Awake and alert, GCS 15, oriented to person, place, time, and situation. Cranial nerves II-XII grossly intact. Motor strength 5/5 in all extremities. Sensory grossly intact. Cerebellar exam normal. Normal gait. Psych: Awake, alert, with orientation to person, place and time. Behavior, mood, and affect are within normal limits. 14:44 Respiratory: the patient does not display signs of respiratory distress, Respirations: shallow respirations, tachypnea, Breath sounds: bronchial sounds. 14:44 Skin: Appearance: Color: pale, left foot in surgical dressing, pt has PICC for Cefepime and Vancomycin in place. Vital Signs: 13:28 BP 153 / 58; Pulse 99; Resp 22; Temp 99.0; Pulse Ox 94% on R/A; Weight 115.67 kg; kr3 Height 5 ft. 5 in. (165.10 cm); Pain 4/10; 16:31 BP 166 / 69; Pulse 94; Resp 17; Temp 98.4; Pulse Ox 89% ; mm9 13:28 Body Mass Index 42.44 (115.67 kg, 165.10 cm) kr3 MDM: 13:21 Patient medically screened. snw 14:04 The patient's pulmonary embolism risk score was calculated as follows: patient has snw experienced immobilization or surgery in the last four weeks (1.5 Pts) the patient has a history of a previous deep vein thrombosis or pulmonary embolism (1.5 Pts) Total Score: 3-6 points. This patient was found to be at moderate risk for a pulmonary embolism by using the Well's assessment criteria. Data reviewed: vital signs, nurses notes, old medical records, pt was admitted and had surgery for a diabetic foot infection in the past two weeks. Pt's old [facility] record shows previous creatinine of 0.5. Will use this creatinine and order CT angio today to r/o PE as pt is SOB and WELLS score is moderate. Data interpreted: Pulse oximetry: on room air is 94 %. Interpretation: acceptable. Counseling: I had a detailed discussion with the patient and/or guardian regarding: the historical points, exam findings, and any diagnostic results supporting the discharge/admit diagnosis. 16:26 Differential diagnosis: CHF exacerbation, pneumonia, Pneumothorax pulmonary edema, rn Pulmonary Embolism. Response to treatment: the patient's symptoms have mildly improved after treatment, and as a result, I will discharge patient. Special discussion: I discussed with the patient/guardian in detail that at this point there is no indication for admission to the hospital. It is understood, however, that if the symptoms persist or worsen the patient needs to return immediately for re-evaluation. Based on the history and exam findings, there is no indication for further emergent testing or inpatient evaluation. I discussed with the patient/guardian the need to see the biology adjunct instructor for further evaluation of the symptoms. I discussed with the patient/guardian the need to see the primary care provider for further evaluation of the symptoms. ED course: Pt refuses lasix here, states has lasix at home, discussed with patient and instructed to take double her lasix for 3 days and call her pcp and biology adjunct instructor. Return precautions given and understood. CXR shows interstitial edema. CT PE neg for PE. U/S neg for DVT. COVID neg.. 08/03 13:21 Order name: COVID-19/FLU A+B; Complete Time: 14:51 snw 08/03 13:21 Order name: Chest Pa And Lat (2 Views) XRAY; Complete Time: 13:56 snw 08/03 14:09 Order name: CT Chest For PE Angio snw 08/03 14:09 Order name: US Extremity Venous W Compression Joseph; Complete Time: 15:03 snw 08/03 14:13 Order name: Chest For Pe Angio; Complete Time: 16:02 EDMS 08/03 16:04 Order name: Recheck VS: pre lasix infusion and 30min post infusion; Complete Time: 16:28snw Administered Medications: 16:28 Not Given (Patient Refused): Lasix (furosemide) 20 mg IVP once; give over 2 minutes kb3 Disposition: 17:34 Co-signature as Attending Physician, Chris Krueger MD. rn Disposition Summary: 08/03/22 16:32 Discharge Ordered Location: Home rn Problem: new rn Symptoms: have improved rn Condition: Stable rn Diagnosis - Unspecified combined systolic (congestive) and diastolic (congestive) heart failure rn - With acute exacerbation - Acute pulmonary edema rn - Dyspnea, unspecified rn Followup: rn - With: Private Physician - When: As needed - Reason: Recheck today's complaints, Re-evaluation by your physician Discharge Instructions: - Discharge Summary Sheet rn - Pulmonary Edema rn - Shortness of Breath, Adult rn Forms: - Medication Reconciliation Form rn - Thank You Letter rn - Antibiotic rn faculty - Prescription Opioid Use rn Signatures: Dispatcher [employer] EDMS Meagan Oneil, SHIP JOINER-C SHIP JOINER-Csnw Chris Krueger MD MD rn Reid, Kelley, RN RN kr3 Leatha Foreman, RN RN kb3 Corrections: (The following items were deleted from the chart) 13:37 13:35 Home Meds: Insulin: Humalog Sub-Q; kr3 kr3 16:34 16:33 Home Meds: Insulin: Humalog Sub-Q; kb3 kb3 16:34 16:33 Home Meds: Verapamil Oral; kb3 kb3
--- NOTE | 2022-08-03 16:32 | ER ---
Nurse's Notes [facility] Name: Jose Edmond Age: 62 yrs Sex: Female : 1960 Arrival Date: 08/03/2022 Time: 13:19 Bed 10 Private MD: Diagnosis: Unspecified combined systolic (congestive) and diastolic (congestive) heart failure-With acute exacerbation;Acute pulmonary edema;Dyspnea, unspecified Presentation: 08/03 13:28 Chief complaint: Patient states: I am SOB all the time, I had surgery on my foot a few kr3 days before [place] and I have been SOB since then. They had me on oxygen while in the hospital after SX. The SX was for a foot infection, I am a diabetic and I still have an infection. Coronavirus screen: Vaccine status: Patient reports receiving the 2nd dose of the covid vaccine. Coronavirus screen: Vaccine status: Patient reports receiving the 2nd dose of the covid vaccine. Ebola Screen: Patient denies travel to an Ebola-affected area in the 21 days before illness onset. Initial Sepsis Screen: Does the patient meet any 2 criteria?. Initial Sepsis Screen: Does the patient meet any 2 criteria? No. Patient's initial sepsis screen is negative. Does the patient have a suspected source of infection? Yes: Skin breakdown/wound. Risk Assessment: Do you want to hurt yourself or someone else? Patient reports no desire to harm self or others. Onset of symptoms was July 22, 2022. 13:28 Method Of Arrival: Wheelchair kr3 13:28 Acuity: MAYRA 3 kr3 Triage Assessment: 13:37 General: Appears in no apparent distress. uncomfortable, Behavior is calm, cooperative. kr3 Pain: Complains of pain in left foot Pain currently is 5 out of 10 on a pain scale. 16:33 Respiratory: kb3 Historical: - Allergies: 13:35 Sulfa (Sulfonamide Antibiotics); kr3 13:35 TETRACYCLINES; kr3 - Home Meds: 13:35 Clonazepam Oral [Active]; Hydrocodone-Acetaminophen Oral [Active]; Metformin Oral kr3 [Active]; tizanidine Oral [Active]; Quinapril HCl Oral [Active]; 16:33 Furosemide Oral as needed [Active]; kb3 - PMHx: 13:35 diabetes mellitus; Hypertensive disorder; Chronic obstructive lung disease; kr3 - PSHx: 13:35 back; section; Cholecystectomy; hernia; hysterectomy; kr3 16:33 Foot sx; kb3 - Immunization history:: Adult Immunizations up to date. - Social history:: Smoking status: Reported history of juuling and/or vaping. Screenin:00 [facility] ED Fall Risk Assessment (Adult) History of falling in the last 3 months, kb3 including since admission No falls in past 3 months (0 pts) Confusion or Disorientation No (0 pts) Intoxicated or Sedated No (0 pts) Impaired Gait Yes (1 pt) Mobility Assist Device Used Yes (1 pt) Altered Elimination No (0 pt) Score/Fall Risk Level 0 - 2 = Low Risk Oriented to surroundings, Maintained a safe environment, Educated pt \T\ family on fall prevention, incl call for assistance when getting out of bed, Assessed \T\ reinforced patient's understanding of fall precautions, Provided non-skid footwear, Hourly rounding (assess needs \T\ fall precautionary measures) done, Used ambulatory aids as needed (educated on \T\ assisted with), Used gait belt as appropriate. Abuse screen: Denies threats or abuse. Denies injuries from another. Nutritional screening: No deficits noted. Tuberculosis screening: No symptoms or risk factors identified. Assessment: 14:00 General: Appears in no apparent distress. Behavior is calm, cooperative, Received care kb3 of pt from triage reporting intermittent fever x2 days and SOB since last month when she had surgery on her foot. PT is currently receiving IV antibiotics at home through a left upper arm PICC line. 14:00 Cardiovascular: Rhythm is regular. Respiratory: Reports shortness of breath at rest kb3 Airway is patent Respiratory effort is even, Breath sounds are diminished. 14:45 General: PICC line is power injectable, flushes well, green top drawn and at bedside. kb3 CT notified. 16:20 General: Pt requesting to take her own Lasix at home and wants to be discharged. Meagan kb3 NEWS REPORTER notified. Vital Signs: 13:28 BP 153 / 58; Pulse 99; Resp 22; Temp 99.0; Pulse Ox 94% on R/A; Weight 115.67 kg; kr3 Height 5 ft. 5 in. (165.10 cm); Pain 4/10; 16:31 BP 166 / 69; Pulse 94; Resp 17; Temp 98.4; Pulse Ox 89% ; mm9 13:28 Body Mass Index 42.44 (115.67 kg, 165.10 cm) kr3 ED Course: 13:19 Patient arrived in ED. rg4 13:20 Meagan [facility]C [facility] snw 13:20 Chris Krueger MD is Attending Physician. snw 13:35 Triage completed. kr3 13:49 Chest Pa And Lat (2 Views) XRAY In Process Unspecified. EDMS 13:50 Arm band placed on right wrist. Patient placed in an exam room, on a stretcher. kb3 14:00 No provider procedures requiring assistance completed. Accessed PICC line. Clean \T\ dry. kb3 Dressing intact. Good blood return. Flushes easily. 14:00 Patient has correct armband on for positive identification. Bed in low position. Call kb3 light in reach. Side rails up X2. Warm blanket given. 14:02 COVID-19/FLU A+B Sent. kr3 14:03 Leatha Foreman, RN is Primary Nurse. kb3 14:24 COVID-19/FLU A+B Sent. mm9 14:44 US Extremity Venous W Compression Joseph In Process Unspecified. EDMS 15:17 Chest For Pe Angio In Process Unspecified. EDMS 16:[address] line remains in place. kb3 Administered Medications: 16:28 Not Given (Patient Refused): Lasix (furosemide) 20 mg IVP once; give over 2 minutes kb3 Medication: 14:00 VIS not applicable for this client. kb3 Outcome: 16:32 Discharge ordered by . rn 16:48 Discharged to home via wheelchair. kb3 16:48 Condition: stable 16:48 Discharge instructions given to patient, family, Instructed on discharge instructions, follow up and referral plans. medication usage, Demonstrated understanding of instructions, follow-up care, medications. 16:49 Patient left the ED. kb3 Signatures: Dispatcher [employer] EDMS Meagan Oneil FNP-C SALES REPRESENTATIVE [employer]-Csnw Chris Krueger MD MD rn Garcia, Rubi rg4 Jumana Martin RN RN kr3 Leatha Foreman RN RN kb3 Rashida Ledesma mm9 Corrections: (The following items were deleted from the chart) 13:37 13:35 Home Meds: Insulin: Humalog Sub-Q; kr3 kr3 16:31 14:00 General: Appears in no apparent distress. Behavior is calm, cooperative, Received kb3 care of pt from triage reporting SOB and intermittent fever x2 days.. kb3 16:34 16:33 Home Meds: Insulin: Humalog Sub-Q; kb3 kb3 16:34 16:33 Home Meds: Verapamil Oral; kb3 kb3
[2022-08-03 16:55] VITALS: BP 166/69; TEMP 98.4; O2SAT 89
== END 2022-08-03 16:49 | disposition home or self-care (01) ==
LOC: ER 13:17
DX: I50.40 Unspecified combined systolic (congestive) and diastolic (congestive) heart failure (principal); J81.0 Acute pulmonary edema; E11.9 Type 2 diabetes mellitus without complications; I10 Essential (primary) hypertension; Z88.1 Allergy status to other antibiotic agents; Z88.2 Allergy status to sulfonamides; Z20.822 Contact with and (suspected) exposure to COVID-19
CPT/HCPCS: 0240U; 71275; 71046; 93970; 99284; Q9967; J1940

== ENCOUNTER 2022-08-13 13:48 | Inpatient (IN) | payer OTHER ==
--- OUTSIDE RECORDS SUMMARY | 2022-08-13 14:14 | XMS REPORT | Continuity of Care Document ---
:1960 Author Organization [facility] t Address [address] [place] [address] Care Team Providers Name Role Phone Jefferson Witt MD Primary Care Physician BISI CARDOSO Attending Clinician Unavailable GIOVANY ANTOINE Attending Clinician Unavailable JEFFERSON WITT Attending Clinician Unavailable RACHELL CHENG Attending Clinician Unavailable RACHELL CHENG Attending Clinician Unavailable Doctor Unassigned, [place] Attending Clinician Unavailable Jefferson Witt MD Attending Clinician Oleg Weems RN Attending Clinician Unavailable Marylou Borrego Attending Clinician Claudia Recinos Attending Clinician JESUS SPAIN Attending Clinician Unavailable Jesus Spain MD Attending Clinician Rachell Cheng MD Attending Clinician ROSETTE CONTRERAS Attending Clinician Unavailable Rosette Markham Attending Clinician [facility], [facility] Sleep Lab Attending Clinician Unavailable 2, [facility] Attending Clinician Unavailable CLAUDIA PORTER Attending Clinician Unavailable DAYLIN MOJICA Attending Clinician Unavailable Daylin Mojica NP Attending Clinician [facility], [facility] Attending Clinician UnavailGiovany Moseley MD Attending [...] BRIAN VENTURA K.H. Attending Clinician Unavailable Only, [facility] Test Attending Clinician Unavailable Mike OCONNOR, Maryam Attending Clinician MARYAM MCKEON Attending Clinician Unavailable ROBBIE CORONADO Attending Clinician Unavailable Nurse, [facility] Pob Immunization Attending Clinician Unavailable Severo Lara DO Attending Clinician SEVERO LARA Attending Clinician Unavailable Linda CHONG, Elizabeth Ballesteros Attending Clinician Unavailable CHERYLE PERERA Attending Clinician Unavailable Trever OCONNOR, Cheryle Attending Clinician Ana Riddle MD Attending Clinician Doron Mayen Attending Clinician DORON REED Attending Clinician Unavailable Gordon LAURA Josse Attending Clinician JOSSE LEYVA Attending Clinician Unavailable Provider, [facility] Attending Clinician Unavailable Romi Fernandez Attending Clinician Lia CHONG, Araceli Black Attending Clinician Unavailable JAYASHREE MULLINS Attending Clinician Unavailable Jayashree Mullins DO Attending Clinician JORGE LUIS L[address] Attending Clinician Unavailable Janae OCONNOR, Bisi Ordaz Attending Clinician Guy Mcclellan RN, Yaneli Attending Clinician Unavailable , [facility] Echo Room 1 - Attending Clinician Unavailable Robbie Coronado MD Attending Clinician Visit, [facility] Nurse Attending Clinician Unavailable Gramm Sandy LAURA Attending Clinician SANDY GRISSOM Attending Clinician Unavailable Lab, [facility] Fam Pob I Attending Clinician Unavailable Alana Freire RN Attending Clinician Unavailable [facility] Pob1, Acute [facility] Attending [...] Date Expiration Date S leon [employer] MEDICARE [id number] 2019 00:00:00 MEDICARE PART A [id number] 2021 2021 \\T\\ B 00:00:00 00:00:00 [employer] [id number] 2021 2021 [place] 00:00:00 00:00:00 Problems Condition Condition Condition Status Onset Resolution Last Treating Co mments Source Name Details Category Date Date Treatment Clinician Date VERNON VERNON Disease Active 2021-08 Univers (obstructi (obstructi 1-23 it y of ve sleep ve sleep 00:00: [place] apnea) apnea) 00 Medical Branch Chest pain Chest pain Disease Active 2020-08 U nivers 0-29 ity of 00:00: [place] 00 Medical Branch Morbid Morbid Disease Active 2020-08 Univers obesity obesity 0-29 ity of 00:00: [place] 00 Medical Branch Chronic Chronic Disease Active [...] 2020-08 Uni vers 0-29 ity of 00:00: [place] [facility] Calculus Calculus Disease Active 2019-08 Overview: Un justice of of 2-18 Formattin ity of gallbladde gallbladde 00:00: g of this [place] r without r without 00 note Medi [facility] cholecysti cholecysti might be Branch tis tis different without without from the obstructio obstructio original. n n Added automatic ally from request for surgery [id number] Neuropathy Neuropathy Disease Active 2019- U nivers 9-22 ity of 00:00: [place] [facility] Bronchitis Bronchitis Disease Active 2019- U nivers 4-22 ity of 00:00: [place] [facility] SOB SOB Disease Active Univers (shortness (shortness 4-22 it y of of breath) [place] breath[place]:00[place] Fever in Fever in Disease Active Unive rs adult adult 4-22 ity of 00:00: [place] [facility] Tobacco Tobacco Disease Active Univers dependence dependence 4-22 it y of 00:00: [place] [facility] Obesity Obesity Disease Active Univers 9-21 ity of 00:00: [place] [facility] Low back Low back Disease Active Unive rs pain pain 9-21 ity of 00:00: [place] [facility] Anxiety Anxiety Disease Active Univers 6-24 ity of 00:00: [place] [facility] Type 2 Type 2 Disease Active Univers diabetes diabetes 6-13 ity of mellitus mellitus 00:00: [place] [facility] Hyperlipid Hyperlipid Disease Active U nivers emia with emia with 6-13 ity of target LDL target LDL 00:00: [place] less than less than 00 [place] 100 100 Branch Essential Essential Disease Active Uni vers hypertensi hypertensi 6-13 it y of on on 00:00: [place] [facility] Right knee Right knee Disease Active U nivers pain pain 5-31 ity of 00:00: [place] [facility] Right knee Right knee Disease [...] ity of 00:00: [place] 00 Medical Branch SULFAMET DRUG Active N/V 2016-08 Univers HOXAZOLE 1-15 ity of -TRIMETH 00:00: [place] OPRIM 00 Medical Branch Sulfamet Drug Active Nausea 2016-08 Univers hoxazole Allergy and/or 1-15 ity of -Trimeth Vomiting 00:00: [place] oprim 00 Medical Branch Sulfa Propensi Active Rash [...] of adverse 00:00: [place] reaction 00 Medical [facility] Social History Social Habit Start Date Stop Date Quantity Comments Source History of tobacco Cigarette Smoker University of use [facility] Exposure to 2022-07-28 2022-08-07 Not sure [facility] SARS-CoV-2 (event) 00:00:00 11:36:00 [facility] Alcohol intake 2022-07-16 2022-07-16 0 /d University of 00:00:00 00:00:00 [facility] Cigarettes smoked 2022-06-04 2022-06-04 Univers ity of current (pack per 00:00:00 00:00:00 [place] ) - Reported Branch Cigarette 2022-06-04 2022-06-04 University of pack-years 00:00:00 00:00:00 [facility] Tobacco use and 2022-06-04 2022-06-04 User of Universit y of exposure 00:00:00 00:00:00 smokeless [facility] tobacco [place] Sex [birth year] At [birth year] Universit y of 00:00:00 00:00:00 [facility] Smoking Status Start Date Stop Date Source Smokes tobacco daily 2022-06-04 00:00:00 Univers ity of [facility] Medications Ordered Filled Start Stop Current Ordering Indication Dosage Frequency Signature Comments Components Source Medication Medication Date Date Medication? Clinician (SIG) Name Name nystatin 2022- Yes [id number] Swish and Univers 100,000 08-08 U spit out ity of unit/mL 00:00: 05:59 10 mL 4 [place] suspension 00 :00 (four) Medical [facility] daily for 10 days. nystatin 2022- Yes [id number] Swish and Univers 100,000 08-08 U spit out ity of unit/mL 00:00: 05:59 10 mL 4 [place] suspension 00 :00 (four) [facility] daily for 10 days. traMADoL 50 2022- No 1-2 tablet Univers mg tablet 08-07 as needed ity of 12:07: 00:00 [place] 49 :00 [facility] traMADoL 50 2022- No 1-2 tablet Univers mg tablet 08-0705 as needed ity of 12:07: 00:00 [place] 49 :00 [facility] escitalopra Yes 1 tablet Un justice m oxalate 1-05 ity of 20 mg 11:59: [place] tablet 27 [facility] escitalopra Yes 1 tablet Un justice m oxalate 1-05 ity of 20 mg 11:59: [place] tablet 27 [facility] escitalopra Yes 1 tablet Un justice m oxalate 1-05 ity of 20 mg 11:59: [place] tablet 27 Medical Branch escitalopra Yes 1 tablet Un justice m oxalate 1-05 ity of 20 mg 11:59: [place] tablet 27 Medical Branch escitalopra Yes 1 tablet Un justice m oxalate 1-05 ity of 20 mg 11:59: [place] tablet 27 Medical Branch HYDROcodone 2021-08 Yes [id number] 1{tbl} Take [...] needed for Pain. Indication s: chronic pain vancomycin 2021-08 Yes Univers 5 gram 2-28 ity of injection 00:00: [place] [facility] Branch HYDROcodone 2021-08 Yes [id number] 1{tbl} Take 1 Un justice -acetaminop 2-28 tablet by ity of hen 7.5-325 00:00: mouth [place] mg per 00 every 6 Medical tablet (six) Branch hours as needed for Pain. Indication s: chronic pain vancomycin 2021-08 Yes Univers 5 gram 2-28 ity of injection 00:00: [place] 00 Medical Branch HYDROcodone 2021-08 Yes [id number] 1{tbl} Take 1 Un justice -acetaminop 2-28 tablet by ity of hen 7.5-325 00:00: mouth [place] mg per 00 every 6 Medical tablet (six) Branch hours as needed for Pain. Indication s: chronic pain vancomycin 2021-08 Yes Univers 5 gram 2-28 ity of injection 00:00: [place] [facility] HYDROcodone 2021-08 Yes [id number] 1{tbl} Take 1 Un justice -acetaminop 2-28 tablet by ity of hen 7.5-325 00:00: mouth [place] mg per 00 every 6 Medical tablet (six) Branch hours as needed for Pain. Indication s: chronic pain vancomycin 2021-08 Yes Univers 5 gram 2-28 ity of injection 00:00: Medical Branch HYDROcodone 2021-08 Yes [id number] 1{tbl} Take 1 Un justice -acetaminop 2-28 tablet by ity of hen 7.5-325 00:00: mouth [place] mg per 00 every 6 Medical tablet (six) Branch hours as needed for Pain. Indication s: chronic pain vancomycin 2021-08 Yes Univers 5 gram 2-28 ity of injection 00:00: Medical Branch gabapentin 2021-08 Yes [id number] TAKE 1 Univers 300 mg 2-20 CAPSULE BY ity of capsule 00:00: MOUTH FOUR [place] TIMES Medical DAILY Branch gabapentin 2021-08 Yes [id number] TAKE 1 Univers 300 mg 2-20 CAPSULE BY ity of capsule 00:00: MOUTH FOUR [place] TIMES Medical DAILY Branch gabapentin 2021-08 Yes [id number] TAKE 1 Univers 300 mg 2-20 CAPSULE BY ity of capsule 00:00: MOUTH FOUR [place] TIMES Medical DAILY Branch gabapentin 2021-08 Yes [id number] TAKE 1 Univers 300 mg 2-20 CAPSULE BY ity of capsule 00:00: MOUTH FOUR [place] TIMES Medical DAILY Branch gabapentin 2021-08 Yes [id number] TAKE 1 Univers 300 mg 2-20 CAPSULE BY ity of capsule 00:00: MOUTH FOUR [place] TIMES Medical DAILY Branch gabapentin 2021-08 Yes [id number] TAKE 1 Univers 300 mg 2-20 CAPSULE BY ity of capsule 00:00: MOUTH FOUR [place] TIMES Medical DAILY Branch gabapentin 2021-08 Yes [id number] TAKE 1 Univers 300 mg 2-20 CAPSULE BY ity of capsule 00:00: MOUTH FOUR [place] TIMES Medical DAILY Branch gabapentin 2021-08 Yes [id number] TAKE 1 Univers 300 mg 2-20 CAPSULE BY ity of capsule 00:00: MOUTH FOUR [place] TIMES Medical DAILY Branch NIFEdipine 2021-08 Yes [id number] 60mg Take 1 U nivers ER 60 mg 2-19 tablet by ity of tablet 00:00: mouth in the Medical morning Branch and 1 tablet in the evening. NIFEdipine 2021-08 Yes [id number] 60mg Take 1 U nivers ER 60 mg 2-19 tablet by ity of tablet 00:00: mouth in [place] 00 the Medical morning Branch and 1 tablet in the evening. NIFEdipine 2021-08 Yes [id number] 60mg Take 1 U nivers ER 60 mg 2-19 tablet by ity of tablet 00:00: mouth in [place] 00 the Medical morning Branch and 1 tablet in the evening. NIFEdipine 2021-08 Yes [id number] 60mg Take 1 U nivers ER 60 mg 2-19 tablet by ity of tablet 00:00: mouth in [place] [address] the Medical morning Branch and 1 tablet in the evening. NIFEdipine 2021-08 Yes [id number] 60mg Take 1 U nivers ER 60 mg 2-19 tablet by ity of tablet 00:00: mouth in [place] [address] the Medical morning Branch and 1 tablet in the evening. NIFEdipine 2021-08 Yes [id number] 60mg Take 1 U nivers ER 60 mg 2-19 tablet by ity of tablet 00:00: mouth in [place] [address] the Medical morning Branch and 1 tablet in the evening. latanoprost 2021-08 Yes INSTILL 1 U nivers 0.005 % 2-19 DROP INTO ity of ophthalmic 00:00: BOTH EYES [place] drops 00 ONCE DAILY Medical Branch NIFEdipine 2021-08 Yes [id number] 60mg Take 1 U nivers ER 60 mg 2-19 tablet by ity of tablet 00:00: mouth in [place] [address] the Medical morning Branch and 1 tablet in the evening. latanoprost 2021-08 Yes INSTILL 1 U nivers 0.005 % 2-19 DROP INTO ity of ophthalmic 00:00: BOTH EYES [place] drops 00 ONCE DAILY Medical Branch NIFEdipine 2021-08 Yes [id number] 60mg Take 1 U nivers ER 60 mg 2-19 tablet by ity of tablet 00:00: mouth in [place] 00 the Medical morning Branch and 1 tablet in the evening. latanoprost 2021-08 Yes INSTILL 1 U nivers 0.005 % 2-19 DROP INTO ity of ophthalmic 00:00: BOTH EYES [place] drops 00 ONCE DAILY Medical Branch NIFEdipine 2021-08 Yes [id number] 60mg Take 1 U nivers ER 60 mg 2-19 tablet by ity of tablet 00:00: mouth in [place] 00 the Medical morning Branch and 1 tablet in the evening. latanoprost 2021-08 Yes INSTILL 1 U nivers 0.005 % 2-19 DROP INTO ity of ophthalmic 00:00: BOTH EYES [place] drops 00 ONCE DAILY Medical Branch NIFEdipine 2021-08 Yes [id number] 60mg Take 1 U nivers ER 60 mg 2-19 tablet by ity of tablet 00:00: mouth in [place] 00 the Medical morning Branch and 1 tablet in the evening. latanoprost 2021-08 Yes INSTILL 1 U nivers 0.005 % 2-19 DROP INTO ity of ophthalmic 00:00: BOTH EYES [place] drops 00 ONCE DAILY Medical Branch ondansetron 2021-08- No 4mg 4 mg, Slow Univers (ZOFRAN 2-07-19 IV Push, ity of (PF)) 20:45: 20:00 ONCE, 1 [place] injection 4 00 :00 dose, On Medi [facility] mg Sat Branch 07/19/22 at 1445, GEOVANI morpHINE (4 2021-08 No 4mg 4 mg, Slow Univers mg/mL) -17 07-19 IV Push, ity of injection 4 19:45: 20:00 ONCE, 1 [place] mg 00 :00 dose, On Medical Sat Branch 07/19/22 at 1345, STAT cephALEXin 2021-08 Yes [id number] 500mg Take 1 Univers (KEFLEX) 2-17 capsule by ity o f 500 mg 00:00: mouth 4 [place] capsule 00 (four) Medical times Branch daily. ciprofloxac 2021-08 Yes [id number] 500mg Take 1 Univers in HCl 500 2-17 tablet by [facility]y [facility] mg tablet [facility]:00: [facility] Branch and 1 tablet in the evening. cephALEXin 2021-08 Yes [id number] 500mg Take 1 Univers (KEFLEX) 2-17 capsule by ity o f 500 mg 00:00: mouth 4 [place] capsule 00 (four) Medical times Branch daily. ciprofloxac 2021-08 Yes [id number] 500mg Take 1 Univers in HCl 500 2-17 tablet by ity of mg tablet 00:00: [place] the Medical morning Branch and 1 tablet in the evening. cephALEXin 2021-08 Yes [id number] 500mg Take 1 Univers (KEFLEX) 2-17 capsule by ity o f 500 mg 00:00: mouth 4 [place] capsule 00 ([facility]) Medical times Branch daily. ciprofloxac 2021-08 Yes [id number] 500mg Take 1 Univers in HCl 500 2-17 tablet by ity of mg tablet 00:00: [place] the Medical morning Branch and 1 tablet in the evening. cephALEXin 2021-08 Yes [id number] 500mg Take 1 Univers (KEFLEX) 2-17 capsule by ity o f 500 mg 00:00: mouth 4 [place] capsule 00 ([facility]) Medical times Branch daily. ciprofloxac 2021-08 Yes [id number] 500mg Take 1 Univers in HCl 500 2-17 tablet by ity of mg tablet 00:00: [place] the Medical morning Branch and 1 tablet in the evening. cephALEXin 2021-08 Yes [id number] 500mg Take 1 Univers (KEFLEX) 2-17 capsule by ity o f 500 mg 00:00: mouth 4 [place] capsule 00 ([facility]) Medical times Branch daily. ciprofloxac 2021-08 Yes [id number] 500mg Take 1 Univers in HCl 500 2-17 tablet by ity of mg tablet 00:00: [place] the Medical morning Branch and 1 tablet in the evening. cephALEXin 2021-08 Yes [id number] 500mg Take 1 Univers (KEFLEX) 2-17 capsule by ity o f 500 mg 00:00: mouth 4 [place] capsule 00 ([facility]) Medical times Branch daily. ciprofloxac 2021-08 Yes [id number] 500mg Take 1 Univers in HCl 500 2-17 tablet by ity of mg tablet 00:00: mouth [place] 00 the Medical morning Branch and 1 tablet in the evening. cephALEXin 2021-08 Yes [id number] 500mg Take 1 Univers (KEFLEX) 2-17 capsule by ity o f 500 mg 00:00: mouth 4 [place] capsule 00 ([facility]) Medical times Branch daily. ciprofloxac 2021-08 Yes [id number] 500mg Take 1 Univers in HCl 500 2-17 tablet by ity of mg tablet 00:00: mouth [place] 00 the Medical morning Branch and 1 tablet in the evening. cephALEXin 2021-08 Yes [id number] 500mg Take 1 Univers (KEFLEX) 2-17 capsule by ity o f 500 mg 00:00: mouth 4 [place] capsule 00 ([facility]) Medical times Branch daily. ciprofloxac 2021-08 Yes [id number] 500mg Take 1 Univers in HCl 500 2-17 tablet by ity of mg tablet 00:00: mouth [place] 00 the Medical morning Branch and 1 tablet in the evening. cephALEXin 2021-08 Yes [id number] 500mg Take 1 Univers (KEFLEX) 2-17 capsule by ity o f 500 mg 00:00: mouth 4 [place] capsule 00 (four) Medical times Branch daily. ciprofloxac 2021-08 Yes [id number] 500mg Take 1 Univers in HCl 500 2-17 tablet by ity of mg tablet 00:00: mouth [place] 00 the Medical morning Branch and 1 tablet in the evening. cephALEXin 2021-08 Yes [id number] 500mg Take 1 Univers (KEFLEX) 2-17 capsule by ity o f 500 mg 00:00: mouth 4 [place] capsule 00 ([facility]) Medical times Branch daily. ciprofloxac 2021-08 Yes [id number] 500mg Take 1 Univers in HCl 500 2-17 tablet by ity of mg tablet 00:00: mouth [place] 00 the Medical morning Branch and 1 tablet in the evening. cephALEXin 2021-08 Yes [id number] 500mg Take 1 Univers (KEFLEX) 2-17 capsule by ity o f 500 mg 00:00: mouth 4 [place] capsule 00 ([facility]) Medical times Branch daily. ciprofloxac 2021-08 Yes [id number] 500mg Take 1 Univers in HCl 500 2-17 tablet by ity of mg tablet 00:00: [place] 00 the Medical morning Branch and 1 tablet in the evening. furosemide 2021-08 Yes 80mg Take 1 Unive rs 80 mg 2-08 tablet by ity of tablet 00:00: mouth [place] 00 every 48 Medical ([facility]) hours. spironolact 2021-08 Yes 25mg Take 1 Univ ers one 25 mg 2-08 tablet by ity o f tablet 00:00: mouth [place] 00 every 48 Medical ([facility]) hours. furosemide 2021-08 Yes 80mg Take 1 Unive rs 80 mg 2-08 tablet by ity of tablet 00:00: mouth [place] 00 every 48 Medical ([facility]) hours. spironolact 2021-08 Yes 25mg Take 1 Univ ers one 25 mg 2-08 tablet by ity o f tablet 00:00: mouth [place] 00 every 48 Medical ([facility]) hours. furosemide 2021- Yes 80mg Take 1 Unive rs 80 mg 2-08 tablet by ity of tablet 00:00: mouth [place] 00 every 48 Medical ([facility]) hours. spironolact 2021-08 Yes 25mg Take 1 Univ ers one 25 mg 2-08 tablet by ity o f tablet 00:00: mouth [place] 00 every 48 Medical ([facility]) hours. furosemide 2021- Yes 80mg Take 1 Unive rs 80 mg 2-08 tablet by ity of tablet 00:00: mouth [place] 00 every 48 Medical ([facility]) hours. spironolact 2021-08 Yes 25mg Take 1 Univ ers one 25 mg 2-08 tablet by ity o f tablet 00:00: mouth [place] 00 every 48 Medical ([facility]) hours. furosemide 2021- Yes 80mg Take 1 Unive rs 80 mg 2-08 tablet by ity of tablet 00:00: mouth [place] 00 every 48 Medical ([facility]) hours. spironolact 2021-08 Yes 25mg Take 1 Univ ers one 25 mg 2-08 tablet by ity o f tablet 00:00: mouth [place] 00 every 48 Medical ([facility]) hours. furosemide 2021-1 Yes 80mg Take 1 Unive rs 80 mg 2-08 tablet by ity of tablet 00:00: mouth [place] 00 every 48 Medical ([facility]) hours. spironolact 2021-1 Yes 25mg Take 1 Univ ers one 25 mg 2-08 tablet by ity o f tablet 00:00: mouth [place] 00 every 48 Medical ([facility]) hours. furosemide 2021-1 Yes 80mg Take 1 Unive rs 80 mg 2-08 tablet by ity of tablet 00:00: mouth [place] 00 every 48 Medical ([facility]) hours. spironolact 2021-08 Yes 25mg Take 1 Univ ers one 25 mg 2-08 tablet by ity o f tablet 00:00: mouth [place] 00 every 48 Medical ([facility] Branch ) hours. furosemide 2021-08 Yes 80mg Take 1 Unive rs 80 mg 2-08 tablet by ity of tablet 00:00: mouth [place] 00 every 48 Medical ([facility] Branch ) hours. spironolact 2021-08 Yes 25mg Take 1 Univ ers one 25 mg 2-08 tablet by ity o f tablet 00:00: mouth [place] 00 every 48 Medical ([facility] Branch ) hours. furosemide 2021-08 Yes 80mg Take 1 Unive rs 80 mg 2-08 tablet by ity of tablet 00:00: mouth [place] 00 every 48 Medical ([facility] Branch ) hours. spironolact 2021-08 Yes 25mg Take 1 Univ ers one 25 mg 2-08 tablet by ity o f tablet 00:00: mouth [place] 00 every 48 Medical ([facility] ) hours. furosemide 2021-08 Yes 80mg Take 1 Unive rs 80 mg 2-08 tablet by ity of tablet 00:00: mouth [place] 00 every 48 Medical ([facility] Branch ) hours. spironolact 2021-08 Yes 25mg Take 1 Univ ers one 25 mg 2-08 tablet by ity o f tablet 00:00: mouth [place] 00 every 48 Medical ([facility] Branch ) hours. furosemide 2021-08 Yes 80mg Take 1 Unive rs 80 mg 2-08 tablet by ity of tablet 00:00: mouth [place] 00 every 48 Medical ([facility] Branch ) hours. spironolact 2021-08 Yes 25mg Take 1 Univ ers one 25 mg 2-08 tablet by ity o f tablet 00:00: mouth [place] 00 every 48 Medical ([facility] Branch ) hours. furosemide 2021-08 Yes 80mg Take 1 Unive rs 80 mg 2-08 tablet by ity of tablet 00:00: mouth [place] 00 every 48 Medical ([facility] Branch ) hours. spironolact 2021-08 Yes 25mg Take 1 Univ ers one 25 mg 2-08 tablet by ity o f tablet 00:00: mouth [place] 00 every 48 Medical ([facility]) hours. furosemide 2021-08 Yes 80mg Take 1 Unive rs 80 mg 2-08 tablet by ity of tablet 00:00: mouth [place] 00 every 48 Medical ([facility]) hours. spironolact 2021-08 Yes 25mg Take 1 Univ ers one 25 mg 2-08 tablet by ity o f tablet 00:00: mouth [place] 00 every 48 Medical ([facility]) hours. furosemide 2021-1 Yes 80mg Take 1 Unive rs 80 mg 2-08 tablet by ity of tablet 00:00: mouth [place] 00 every 48 Medical ([facility]) hours. spironolact 2021-08 Yes 25mg Take 1 Univ ers one 25 mg 2-08 tablet by ity o f tablet 00:00: mouth [place] 00 every 48 Medical ([facility]) hours. furosemide 2021- Yes 80mg Take 1 Unive rs 80 mg 2-08 tablet by ity of tablet 00:00: mouth [place] 00 every 48 Medical ([facility]) hours. spironolact 2021-08 Yes 25mg Take 1 Univ ers one 25 mg 2-08 tablet by ity o f tablet 00:00: mouth [place] 00 every 48 Medical ([facility]) hours. furosemide 2021-1 Yes 80mg Take 1 Unive rs 80 mg 2-08 tablet by ity of tablet 00:00: mouth [place] 00 every 48 Medical ([facility]) hours. spironolact 2021- Yes 25mg Take 1 Univ ers one 25 mg 2-08 tablet by ity o f tablet 00:00: mouth [place] 00 every 48 Medical ([facility]) hours. furosemide 2021-1 Yes 80mg Take 1 Unive rs 80 mg 2-08 tablet by ity of tablet 00:00: mouth [place] 00 every 48 Medical ([facility]) hours. spironolact 2021- Yes 25mg Take 1 Univ ers one 25 mg 2-08 tablet by ity o f tablet 00:00: mouth [place] 00 every 48 Medical ([facility]) hours. furosemide 2021-1 Yes 80mg Take 1 Unive rs 80 mg 2-08 tablet by ity of tablet 00:00: mouth [place] 00 every 48 Medical ([facility]) hours. spironolact 2021-08 Yes 25mg Take 1 Univ ers one 25 mg 2-08 tablet by ity o f tablet 00:00: mouth [place] 00 every 48 Medical ([facility] Branch ht) hours. furosemide 2021-08 Yes 80mg Take 1 Unive rs 80 mg 2-08 tablet by [facility] of tablet 00:00: mouth [place] 00 every 48 Medical ([facility] Branch ht) hours. spironolact 2021-08 Yes 25mg Take 1 [facility] ers one 25 mg 2-08 tablet by ity o f tablet 00:00: mouth [place] 00 every 48 Medical ([facility] Branch ht) hours. furosemide 2021-08 Yes 80mg Take 1 [facility] rs 80 mg 2-08 tablet by ity of tablet 00:00: mouth [place] 00 every 48 Medical ([facility] Branch ht) hours. spironolact 2021-08 Yes 25mg Take 1 [facility] ers one 25 mg 2-08 tablet by ity o f tablet 00:00: mouth [place] 00 every 48 Medical ([facility] ) hours. furosemide 2021-08 Yes 80mg Take 1 [facility] rs 80 mg 2-08 tablet by ity of tablet 00:00: mouth [place] 00 every 48 Medical ([facility] ) hours. spironolact 2021-08 Yes 25mg Take 1 [facility] ers one 25 mg 2-08 tablet by ity o f tablet 00:00: mouth [place] 00 every 48 Medical ([facility] ) hours. furosemide 2021-08 Yes 80mg Take 1 [facility] rs 80 mg 2-08 tablet by ity of tablet 00:00: mouth [place] 00 every 48 Medical ([facility] ) hours. spironolact 2021-08 Yes 25mg Take 1 [facility] ers one 25 mg 2-08 tablet by ity o f tablet 00:00: mouth [place] 00 every 48 Medical ([facility] ht) hours. furosemide 2021- Yes 80mg Take 1 [facility] rs 80 mg 2-08 tablet by ity of tablet 00:00: mouth [place] 00 every 48 Medical ([facility] ht) hours. spironolact 2021-08 Yes 25mg Take 1 [facility] ers one 25 mg 2-08 tablet by ity o f tablet 00:00: mouth [place] 00 every 48 [facility] hours. quinapriL 2021- Yes [id number] 40mg Take 1 [facility] 40 mg 2-07 tablet by [facility] of tablet 00:00: mouth [place] 00 every Medical morning. Branch quinapriL 2021-08 Yes [id number] 40mg Take 1 [facility] 40 mg 2-07 tablet by ity of tablet 00:00: mouth [place] 00 every Medical morning. Branch quinapriL 2021-08 Yes [id number] 40mg Take 1 [facility] 40 mg 2-07 tablet by ity of tablet 00:00: mouth [place] 00 every Medical morning. Branch quinapriL 2021-08 Yes [id number] 40mg Take 1 [facility] 40 mg 2-07 tablet by [facility] of tablet 00:00: mouth [place] 00 every Medical morning. Branch quinapriL 2021-08 Yes [id number] 40mg Take 1 [facility] 40 mg 2-07 tablet by it[facility] of tablet 00:00: mouth [place] 00 every Medical morning. Branch quinapriL 2021-08 Yes [id number] 40mg Take 1 [facility] 40 mg 2-07 tablet by [facility] of tablet 00:00: mouth [place] 00 every Medical morning. Branch quinapriL 2021-08 Yes [id number] 40mg Take 1 [facility] 40 mg 2-07 tablet by it[facility] of tablet 00:00: mouth [place] 00 every Medical morning. Branch quinapriL 2021-08 Yes [id number] 40mg Take 1 [facility] 40 mg 2-07 tablet by [facility] of tablet 00:00: mouth [place] 00 every Medical morning. Branch quinapriL 2021- Yes [id number] 40mg Take 1 [facility] 40 mg 2-07 tablet by [facility] of tablet 00:00: mouth [place] 00 every Medical morning. Branch quinapriL 2021-08 Yes [id number] 40mg Take 1 [facility] 40 mg 2-07 tablet by it[facility] of tablet 00:00: mouth [place] 00 every Medical morning. Branch quinapriL 2021- Yes [id number] 40mg Take 1 [facility] 40 mg 2-07 tablet by ity of tablet 00:00: mouth [place] 00 every Medical morning. Branch quinapriL 2021- Yes [id number] 40mg Take 1 [facility] 40 mg 2-07 tablet by ity of tablet 00:00: mouth [place] 00 every Medical morning. Branch quinapriL 2021-08 Yes [id number] 40mg Take 1 [facility] 40 mg 2-07 tablet by ity of tablet 00:00: mouth [place] 00 every Medical morning. Branch quinapriL 2021-08 Yes [id number] 40mg Take 1 [facility] 40 mg 2-07 tablet by ity of tablet 00:00: mouth [place] 00 every Medical morning. Branch quinapriL 2021-08 Yes [id number] 40mg Take 1 [facility] 40 mg 2-07 tablet by ity of tablet 00:00: mouth [place] 00 every Medical morning. Branch quinapriL 2021-08 Yes [id number] 40mg Take 1 [facility] 40 mg 2-07 tablet by ity of tablet 00:00: mouth [place] 00 every Medical morning. Branch quinapriL 2021-08 Yes [id number] 40mg Take 1 [facility] 40 mg 2-07 tablet by ity of tablet 00:00: mouth [place] 00 every Medical morning. Branch quinapriL 2021-08 Yes [id number] 40mg Take 1 [facility] 40 mg 2-07 tablet by ity of tablet 00:00: mouth [place] 00 every Medical morning. Branch quinapriL 2021-08 Yes [id number] 40mg Take 1 [facility] 40 mg 2-07 tablet by ity of tablet 00:00: mouth [place] 00 every Medical morning. Branch quinapriL 2021-08 Yes [id number] 40mg Take 1 [facility] 40 mg 2-07 tablet by ity of tablet 00:00: mouth [place] 00 every Medical morning. Branch quinapriL 2021-08 Yes [id number] 40mg Take 1 [facility] 40 mg 2-07 tablet by it[facility] of tablet 00:00: mouth [place] 00 every Medical morning. Branch quinapriL 2021-08 Yes [id number] 40mg Take 1 [facility] 40 mg 2-07 tablet by ity of tablet 00:00: mouth [place] 00 every Medical morning. Branch quinapriL 2021-08 Yes [id number] 40mg Take 1 [facility] 40 mg [...] s: chronic pain MUPIROCIN 2 2021-08 Yes [id number] APPLY U nivers % ointment 1-28 TOPICALLY ity of 00:00: TO THE [place] AFFECTED Medical AREA THREE Branch TIMES DAILY MUPIROCIN 2 2021-08 Yes [id number] APPLY U nivers % ointment 1-28 TOPICALLY ity of 00:00: TO THE [place] AFFECTED Medical AREA THREE Branch TIMES DAILY MUPIROCIN 2 2021-08 Yes [id number] APPLY U nivers % ointment 1-28 TOPICALLY ity of 00:00: TO THE [place] AFFECTED Medical AREA THREE Branch TIMES DAILY MUPIROCIN 2 2021-08 Yes [id number] APPLY U nivers % ointment 1-28 TOPICALLY ity of 00:00: TO THE [place] AFFECTED Medical AREA THREE Branch TIMES DAILY MUPIROCIN 2 2021-08 Yes [id number] APPLY U nivers % ointment 1-28 TOPICALLY ity of 00:00: TO THE [place] AFFECTED Medical AREA THREE Branch TIMES DAILY MUPIROCIN 2 2021-08 Yes [id number] APPLY U nivers % ointment 1-28 TOPICALLY ity of 00:00: TO THE [place] AFFECTED Medical AREA THREE Branch TIMES DAILY MUPIROCIN 2 2021-08 Yes [id number] APPLY U nivers % ointment 1-28 TOPICALLY ity of 00:00: TO THE [place] AFFECTED Medical AREA THREE Branch TIMES DAILY MUPIROCIN 2 2021-08 Yes [id number] APPLY U nivers % ointment 1-28 TOPICALLY ity of 00:00: TO THE [place] AFFECTED Medical AREA THREE Branch TIMES DAILY MUPIROCIN 2 2021-08 Yes [id number] APPLY U nivers % ointment 1-28 TOPICALLY ity of 00:00: TO THE [place] 00 AFFECTED Medical AREA THREE Branch TIMES DAILY MUPIROCIN 2 2021-08 Yes [id number] APPLY U nivers % ointment 1-28 TOPICALLY ity of 00:00: TO THE [place] 00 AFFECTED Medical AREA THREE Branch TIMES DAILY MUPIROCIN 2 2021-08 Yes [id number] APPLY U nivers % ointment 1-28 TOPICALLY ity of 00:00: TO THE [place] 00 AFFECTED Medical AREA THREE Branch TIMES DAILY MUPIROCIN 2 2021-08 Yes [id number] APPLY U nivers % ointment 1-28 TOPICALLY ity of 00:00: TO THE [place] AFFECTED Medical AREA THREE Branch TIMES DAILY MUPIROCIN 2 2021-08 Yes [id number] APPLY U nivers % ointment 1-28 TOPICALLY ity of 00:00: TO THE [place] AFFECTED Medical AREA THREE Branch TIMES DAILY MUPIROCIN 2 2021-08 Yes [id number] APPLY U nivers % ointment 1-28 TOPICALLY ity of 00:00: TO THE [place] AFFECTED Medical AREA THREE Branch TIMES DAILY MUPIROCIN 2 2021-08 Yes [id number] APPLY U nivers % ointment 1-28 TOPICALLY ity of 00:00: TO THE [place] AFFECTED Medical AREA THREE Branch TIMES DAILY MUPIROCIN 2 2021-08 Yes [id number] APPLY U nivers % ointment 1-28 TOPICALLY ity of 00:00: TO THE [place] AFFECTED Medical AREA THREE Branch TIMES DAILY MUPIROCIN 2 2021-08 Yes [id number] APPLY U nivers % ointment 1-28 TOPICALLY ity of 00:00: TO THE [place] AFFECTED Medical AREA THREE Branch TIMES DAILY MUPIROCIN 2 2021-08 Yes [id number] APPLY U nivers % ointment 1-28 TOPICALLY ity of 00:00: TO THE [place] AFFECTED Medical AREA THREE Branch TIMES DAILY MUPIROCIN 2 2021-08 Yes [id number] APPLY U nivers % ointment 1-28 TOPICALLY ity of 00:00: TO THE [place] AFFECTED Medical AREA THREE Branch TIMES DAILY MUPIROCIN 2 2021-08 Yes [id number] APPLY U nivers % ointment 1-28 TOPICALLY ity of 00:00: TO THE [place] AFFECTED Medical AREA THREE Branch TIMES DAILY MUPIROCIN 2 2021-08 Yes [id number] APPLY U nivers % ointment 1-28 TOPICALLY ity of 00:00: TO THE [place] AFFECTED Medical AREA THREE Branch TIMES DAILY MUPIROCIN 2 2021-08 Yes [id number] APPLY U nivers % ointment 1-28 TOPICALLY ity of 00:00: TO THE [place] AFFECTED Medical AREA THREE Branch TIMES DAILY MUPIROCIN 2 2021-08 Yes [id number] APPLY U nivers % ointment 1-28 TOPICALLY ity of 00:00: TO THE [place] AFFECTED Medical AREA THREE Branch TIMES DAILY MUPIROCIN 2 2021-08 Yes [id number] APPLY U nivers % ointment 1-28 TOPICALLY ity of 00:00: TO THE [place] AFFECTED Medical AREA THREE Branch TIMES DAILY MUPIROCIN 2 2021-08 Yes [id number] APPLY U nivers % ointment 1-28 TOPICALLY ity of 00:00: TO THE [place] AFFECTED Medical AREA THREE Branch TIMES DAILY MUPIROCIN 2 2021-08 Yes [id number] APPLY U nivers % ointment 1-28 TOPICALLY ity of 00:00: TO THE [place] AFFECTED Medical AREA THREE Branch TIMES DAILY clonazePAM 2021-08 Yes [id number] 1mg Take 1 U nivers 1 mg tablet 1-21 tablet by ity of 00:00: mouth in [place] [address] the Medical morning Branch and 1 tablet at noon and 1 tablet in the evening. clonazePAM 2021-08 Yes [id number] 1mg Take 1 U nivers 1 mg tablet 1-21 tablet by ity of 00:00: mouth in [place] [address] the Medical morning Branch and 1 tablet at noon and 1 tablet in the evening. clonazePAM 2021-08 Yes [id number] 1mg Take 1 U nivers 1 mg tablet 1-21 tablet by ity of 00:00: mouth in [place] [address] the Medical morning Branch and 1 tablet at noon and 1 tablet in the evening. clonazePAM 2021-08 Yes [id number] 1mg Take 1 U nivers 1 mg tablet 1-21 tablet by ity of 00:00: mouth in [place] 00 the Medical morning Branch and 1 tablet at noon and 1 tablet in the evening. clonazePAM 2- Yes [id number] 1mg Take 1 U nivers 1 mg tablet 1-21 tablet by ity of 00:00: mouth in [place] 00 the Medical morning Branch and 1 tablet at noon and 1 tablet in the evening. clonazePAM 2021- Yes [id number] 1mg Take 1 U nivers 1 mg tablet 1-21 tablet by ity of 00:00: mouth in [place] [address] the Medical morning Branch and 1 tablet at noon and 1 tablet in the evening. clonazePAM 2021-1 Yes [id number] 1mg Take 1 U nivers 1 mg tablet 1-21 tablet by ity of 00:00: mouth in [place] [address] the Medical morning Branch and 1 tablet at noon and 1 tablet in the evening. clonazePAM 2021-1 Yes [id number] 1mg Take 1 U nivers 1 mg tablet 1-21 tablet by ity of 00:00: mouth in [place] [address] the Medical morning Branch and 1 tablet at noon and 1 tablet in the evening. clonazePAM 2021-1 Yes [id number] 1mg Take 1 U nivers 1 mg tablet 1-21 tablet by ity of 00:00: mouth in [place] [address] the Medical morning Branch and 1 tablet at noon and 1 tablet in the evening. clonazePAM 2021-1 Yes [id number] 1mg Take 1 U nivers 1 mg tablet 1-21 tablet by ity of 00:00: mouth in [place] [address] the Medical morning Branch and 1 tablet at noon and 1 tablet in the evening. clonazePAM 2021-1 Yes [id number] 1mg Take 1 U nivers 1 mg tablet 1-21 tablet by ity of 00:00: mouth in [place] [address] the Medical morning Branch and 1 tablet at noon and 1 tablet in the evening. clonazePAM 2-1 Yes [id number] 1mg Take 1 U nivers 1 mg tablet 1-21 tablet by ity of 00:00: mouth in [place] [address] the Medical morning Branch and 1 tablet at noon and 1 tablet in the evening. clonazePAM 2022-1 Yes [id number] 1mg Take 1 U nivers 1 mg tablet 1-21 tablet by ity of 00:00: mouth in [place] [address] the Medical morning Branch and 1 tablet at noon and 1 tablet in the evening. clonazePAM 2022-1 Yes [id number] 1mg Take 1 U nivers 1 mg tablet 1-21 tablet by ity of 00:00: mouth in [place] 00 the Medical morning Branch and 1 tablet at noon and 1 tablet in the evening. clonazePAM 2021-1 Yes [id number] 1mg Take 1 U nivers 1 mg tablet 1-21 tablet by ity of 00:00: mouth in [place] 00 the Medical morning Branch and 1 tablet at noon and 1 tablet in the evening. clonazePAM 2021- Yes [id number] 1mg Take 1 U nivers 1 mg tablet 1-21 tablet by ity of 00:00: mouth in [place] 00 the Medical morning Branch and 1 tablet at noon and 1 tablet in the evening. clonazePAM 2021-1 Yes [id number] 1mg Take 1 U nivers 1 mg tablet 1-21 tablet by ity of 00:00: mouth in [place] [address] the Medical morning Branch and 1 tablet at noon and 1 tablet in the evening. clonazePAM 2021- Yes [id number] 1mg Take 1 U nivers 1 mg tablet 1-21 tablet by ity of 00:00: mouth in [place] [address] the Medical morning Branch and 1 tablet at noon and 1 tablet in the evening. clonazePAM 2021- Yes [id number] 1mg Take 1 U nivers 1 mg tablet 1-21 tablet by ity of 00:00: mouth in [place] [address] the Medical morning Branch and 1 tablet at noon and 1 tablet in the evening. clonazePAM 2021-1 Yes [id number] 1mg Take 1 U nivers 1 mg tablet 1-21 tablet by ity of 00:00: mouth in [place] [address] the Medical morning Branch and 1 tablet at noon and 1 tablet in the evening. clonazePAM 2021- Yes [id number] 1mg Take 1 U nivers 1 mg tablet 1-21 tablet by ity of 00:00: mouth in [place] [address] the Medical morning Branch and 1 tablet at noon and 1 tablet in the evening. clonazePAM 2021-1 Yes [id number] 1mg Take 1 U nivers 1 mg tablet 1-21 tablet by ity of 00:00: mouth in [place] [address] the Medical morning Branch and 1 tablet at noon and 1 tablet in the evening. clonazePAM 202-1 Yes [id number] 1mg Take 1 U nivers 1 mg tablet 1-21 tablet by ity of 00:00: mouth in [place] the Medical morning Branch and 1 tablet at noon and 1 tablet in the evening. clonazePAM 2021- Yes [id number] 1mg Take 1 U nivers 1 mg tablet 1-21 tablet by ity of 00:00: mouth in [place] 00 the Medical morning Branch and 1 tablet at noon and 1 tablet in the evening. clonazePAM 2021- Yes [id number] 1mg Take 1 U nivers 1 mg tablet 1-21 tablet by ity of 00:00: mouth in [place] the Medical morning Branch and 1 tablet at noon and 1 tablet in the evening. clonazePAM 2021- Yes [id number] 1mg Take 1 U nivers 1 mg tablet 1-21 tablet by ity of 00:00: mouth in [place] the Medical morning Branch and 1 tablet at noon and 1 tablet in the evening. clonazePAM 2021- Yes [id number] 1mg Take 1 U nivers 1 mg tablet 1-21 tablet by ity of 00:00: mouth in [place] the Medical morning Branch and 1 tablet at noon and 1 tablet in the evening. clonazePAM 2021- Yes [id number] 1mg Take 1 U nivers 1 mg tablet 1-21 tablet by ity of 00:00: mouth in [place] the Medical morning Branch and 1 tablet at noon and 1 tablet in the evening. furosemide 2021- Yes 80mg Take 1 Un[facility] rs 80 mg 1-09 tablet by ity of tablet 00:00: mouth in [place] the morning. Branch furosemide 2021-1 Yes 80mg Take 1 [facility] rs 80 mg 1-09 tablet by ity of tablet 00:00: mouth in [place] the morning. Branch furosemide 2021-1 Yes 80mg Take 1 [facility] rs 80 mg 1-09 tablet by ity of tablet 00:00: mouth in [place] the Medical morning. Branch furosemide 2022-1 Yes 80mg Take 1 [facility] rs 80 mg 1-09 tablet by ity of tablet 00:00: mouth in [place] the Medical morning. Branch furosemide 2021-1 Yes 80mg Take 1 [facility] rs 80 mg 1-09 tablet by ity of tablet 00:00: mouth in [place] the Medical morning. Branch furosemide 2-1 Yes 80mg Take 1 [facility] rs 80 mg 1-09 tablet by ity of tablet 00:00: mouth in [place] 00 the Medical morning. Branch furosemide 2022-1 Yes 80mg Take 1 [facility] rs 80 mg 1-09 tablet by ity of tablet 00:00: mouth in [place] 00 the Medical morning. Branch furosemide 2022-1 Yes 80mg Take 1 [facility] rs 80 mg 1-09 tablet by ity of tablet 00:00: mouth in [place] 00 the Medical morning. Branch furosemide 2022-1 Yes 80mg Take 1 [facility] rs 80 mg 1-09 tablet by ity of tablet 00:00: mouth in [place] 00 the Medical morning. Branch furosemide 2022-1 Yes 80mg Take 1 [facility] rs 80 mg 1-09 tablet by ity of tablet 00:00: mouth in [place] 00 the Medical morning. Branch furosemide 2022-1 Yes 80mg Take 1 [facility] rs 80 mg 1-09 tablet by ity of tablet 00:00: mouth in [place] 00 the Medical morning. Branch furosemide 2022-1 Yes 80mg Take 1 [facility] rs 80 mg 1-09 tablet by ity of tablet 00:00: mouth in [place] 00 the Medical morning. Branch furosemide 2022-1 Yes 80mg Take 1 [facility] rs 80 mg 1-09 tablet by ity of tablet 00:00: mouth in [place] 00 the Medical morning. Branch furosemide 2022-1 Yes 80mg Take 1 [facility] rs 80 mg 1-09 tablet by ity of tablet 00:00: mouth in [place] 00 the Medical morning. Branch furosemide 2022-1 Yes 80mg Take 1 [facility] rs 80 mg 1-09 tablet by ity of tablet 00:00: mouth in [place] 00 the Medical morning. Branch furosemide 2022-1 Yes 80mg Take 1 [facility] rs 80 mg 1-09 tablet by ity of tablet 00:00: mouth in [place] 00 the Medical morning. Branch furosemide 2022-1 Yes 80mg Take 1 [facility] rs 80 mg 1-09 tablet by ity of tablet 00:00: mouth in [place] 00 the Medical morning. Branch furosemide 2022-1 Yes 80mg Take 1 [facility] rs 80 mg 1-09 tablet by ity of tablet 00:00: mouth in [place] 00 the Medical morning. Branch furosemide 2022-1 Yes 80mg Take 1 [facility] rs 80 mg 1-09 tablet by ity of tablet 00:00: mouth in [place] 00 the Medical morning. Branch furosemide 2022-1 2022- No 80mg Take 1 [facility] ers 80 mg 08-11 tablet by ity of tablet 00:00: 00:00 mouth in [place] 00 :00 the Medical morning. Branch furosemide 2021-2021- No 80mg Take 1 [facility] ers 80 mg 08-11 tablet by ity of tablet 00:00: 00:00 mouth in [place] 00 :00 the Medical morning. Branch NIFEdipine 2021- Yes [id number] 30mg Take 1 U nivers ER 30 mg 1-08 tablet by ity of tablet 00:00: mouth in [place] 00 the Medical morning Branch and 1 tablet in the evening. NIFEdipine 2021- Yes [id number] 30mg Take 1 U nivers ER 30 mg 1-08 tablet by ity of tablet 00:00: mouth in [place] 00 the Medical morning Branch and 1 tablet in the evening. NIFEdipine 2021- Yes [id number] 30mg Take 1 [facility] n[facility] ER 30 mg 1-08 tablet by ity of tablet 00:00: mouth in [place] 00 the Medical morning Branch and 1 tablet in the evening. NIFEdipine 2021- Yes [id number] 30mg Take 1 U nivers ER 30 mg 1-08 tablet by ity of tablet 00:00: mouth in [place] 00 the Medical morning Branch and 1 tablet in the evening. NIFEdipine 2021- Yes [id number] 30mg Take 1 U nivers ER 30 mg 1-08 tablet by ity of tablet 00:00: mouth in [place] 00 the Medical morning Branch and 1 tablet in the evening. NIFEdipine 2021- Yes [id number] 30mg Take 1 U nivers ER 30 mg 1-08 tablet by ity of tablet 00:00: mouth in [place] 00 the Medical morning Branch and 1 tablet in the evening. NIFEdipine 2021- Yes [id number] 30mg Take 1 U nivers ER 30 mg 1-08 tablet by ity of tablet 00:00: mouth in [place] 00 the Medical morning Branch and 1 tablet in the evening. NIFEdipine 2021-1 Yes [id number] 30mg Take 1 U nivers ER 30 mg 1-08 tablet by ity of tablet 00:00: mouth in [place] [address] the Medical morning Branch and 1 tablet in the evening. NIFEdipine 2021-1 Yes [id number] 30mg Take 1 U nivers ER 30 mg 1-08 tablet by ity of tablet 00:00: mouth in [place] 00 the Medical morning Branch and 1 tablet in the evening. NIFEdipine 2021- Yes [id number] 30mg Take 1 [facility] ER 30 mg 1-08 tablet by ity of tablet 00:00: mouth in [place] 00 the Medical morning Branch and 1 tablet in the evening. NIFEdipine 2021-1 Yes [id number] 30mg Take 1 [facility] ER 30 mg 1-08 tablet by ity of tablet 00:00: mouth in [place] 00 the Medical morning Branch and 1 tablet in the evening. NIFEdipine 1 Yes [id number] 30mg Take 1 [facility] n[facility] ER 30 mg 1-08 tablet by ity of tablet 00:00: mouth in [place] [address] the Medical morning Branch and 1 tablet in the evening. NIFEdipine 2021-1 Yes [id number] 30mg Take 1 [facility] nivers ER 30 mg 1-08 tablet by ity of tablet 00:00: mouth in [place] [address] the Medical morning Branch and 1 tablet in the evening. NIFEdipine 2021-08 Yes [id number] 30mg Take 1 [facility] nivers ER 30 mg 1-08 tablet by ity of tablet 00:00: mouth in [place] [address] the Medical morning Branch and 1 tablet in the evening. NIFEdipine 2021-08 Yes [id number] 30mg Take 1 U nivers ER 30 mg 1-08 tablet by ity of tablet 00:00: mouth in [place] [address] the Medical morning Branch and 1 tablet in the evening. NIFEdipine 2021-1 Yes [id number] 30mg Take 1 U nivers ER 30 mg 1-08 tablet by ity of tablet 00:00: mouth in [place] [address] the Medical morning Branch and 1 tablet in the evening. NIFEdipine 2021-1 Yes [id number] 30mg Take 1 [facility] n[facility] ER 30 mg 1-08 tablet by ity of tablet 00:00: mouth in [place] [address] the Medical morning Branch and 1 tablet in the evening. NIFEdipine 2021-1 Yes [id number] 30mg Take 1 [facility] ER 30 mg 1-08 tablet by ity of tablet 00:00: mouth in [place] [address] the Medical morning Branch and 1 tablet in the evening. NIFEdipine 2021-1 Yes [id number] 30mg Take 1 [facility] ER 30 mg 1-08 tablet by ity of tablet 00:00: mouth in [place] [address] the Medical morning Branch and 1 tablet in the evening. NIFEdipine 2021-1 Yes [id number] 30mg Take 1 [facility] n[facility] ER 30 mg 1-08 tablet by ity of tablet 00:00: mouth in [place] 00 the Medical morning Branch and 1 tablet in the evening. NIFEdipine 2021-08 Yes [id number] 30mg Take 1 [facility] ER 30 mg 1-08 tablet by ity of tablet 00:00: mouth in [place] 00 the Medical morning Branch and 1 tablet in the evening. NIFEdipine 2021-08 Yes [id number] 30mg Take 1 [facility] n[facility] ER 30 mg 1-08 tablet by ity of tablet 00:00: mouth in [place] 00 the Medical morning Branch and 1 tablet in the evening. NIFEdipine 2021-08 Yes [id number] 30mg Take 1 [facility] n[facility] ER 30 mg 1-08 tablet by ity of tablet 00:00: mouth in [place] 00 the Medical morning Branch and 1 tablet in the evening. NIFEdipine 2021-08 Yes [id number] 30mg Take 1 [facility] ER 30 mg 1-08 tablet by ity of tablet 00:00: mouth in [place] 00 the Medical morning Branch and 1 tablet in the evening. NIFEdipine 2021-08 Yes [id number] 30mg Take 1 [facility] ER 30 mg 1-08 tablet by ity of tablet 00:00: mouth in [place] [address] the Medical morning Branch and 1 tablet in the evening. NIFEdipine 2021-08 Yes [id number] 30mg Take 1 [facility] n[facility] ER 30 mg 1-08 tablet by ity of tablet 00:00: mouth in [place] 00 the Medical morning Branch and 1 tablet in the evening. NIFEdipine 2021-08 Yes [id number] 30mg Take 1 [facility] ER 30 mg 1-08 tablet by ity of tablet 00:00: mouth in [place] 00 the Medical morning Branch and 1 tablet in the evening. NIFEdipine 1 Yes [id number] 30mg Take 1 [facility] n[facility] ER 30 mg 1-08 tablet by ity of tablet 00:00: mouth in [place] [address] the Medical morning Branch and 1 tablet in the evening. NIFEdipine 2021-1 Yes [id number] 30mg Take 1 [facility] n[facility] ER 30 mg 1-08 tablet by ity of tablet 00:00: mouth in [place] [address] the Medical morning Branch and 1 tablet in the evening. NIFEdipine 1 Yes [id number] 30mg Take 1 [facility] ER 30 mg 1-08 tablet by ity of tablet 00:00: mouth in [place] [address] the Medical morning Branch and 1 tablet in the evening. NIFEdipine 2021-08 Yes [id number] 30mg Take 1 [facility] n[facility] ER 30 mg 1-08 tablet by ity of tablet 00:00: mouth in [place] 00 the Medical morning Branch and 1 tablet in the evening. NIFEdipine 2021-08 Yes [id number] 30mg Take 1 [facility] ER 30 mg 1-08 tablet by ity of tablet 00:00: mouth in [place] 00 the Medical morning Branch and 1 tablet in the evening. NIFEdipine 2021-08 Yes [id number] 30mg Take 1 [facility] ER 30 mg 1-08 tablet by ity of tablet 00:00: mouth in [place] 00 the Medical morning Branch and 1 tablet in the evening. NIFEdipine 2021-08- No [id number] 30mg Take 1 [facility] ER 30 mg - 12-19 tablet by it[facility] o f tablet 00:00: 00:00 mouth in [place] 00 :00 the Medical morning Branch and 1 tablet in the evening. NIFEdipine 2021-08- No [id number] 30mg Take 1 [facility] ER 30 mg - 12-19 tablet by ity o f tablet 00:00: 00:00 mouth in [place] 00 :00 the Medical morning Branch and 1 tablet in the evening. insulin 2021-08 Yes [id number] ADMINISTER [facility] degludec 08-05 62 UNITS ity of ([place] 00:00[place] SKIN THREE Medi ashley U-200) 200 TIMES Branch unit/mL (3 DAILY mL) In insulin 2021-08 Yes [id number] ADMINISTER [facility] degludec 08-05 62 UNITS ity of ([place] 00:00: [place]LE[place] 00 SKIN THREE Medi [facility] U-200) 200 TIMES Branch unit/mL (3 DAILY mL) In insulin 2021-08 Yes [id number] ADMINISTER [facility]-05 62 UNITS ity of ([place] 00:00[place]LE[place] 00 SKIN THREE [facility] U-200) 200 TIMES Branch unit/mL (3 DAILY mL) In insulin 2021-08 Yes [id number] ADMINISTER [facility] - 62 UNITS ity of ([place] 00:00: [place] FLE[place] 00 SKIN THREE [facility] U-200) 200 TIMES Branch unit/mL (3 DAILY mL) In insulin 2021-08 Yes [id number] ADMINISTER [facility] 1-03 62 UNITS ity of ([place] 00:00: [place] THE [place] FLEXT[place] 00 SKIN THREE [facility] U-200) 200 TIMES Branch unit/mL (3 DAILY mL) InPn insulin 2021-08 Yes [id number] ADMINISTER [facility] 03 62 UNITS ity of ([place] 00:00: [place] THE [place] FLEXT[place] 00 SKIN THREE [facility] U-200) 200 TIMES Branch unit/mL (3 DAILY mL) InPn insulin 2021-08 Yes [id number] ADMINISTER [facility] 08-05 62 UNITS ity of ([place] 00:00: [place] THE [place]LE[place] 00 SKIN THREE [facility] U-200) 200 TIMES Branch unit/mL (3 DAILY mL) InPn insulin 2021-08 Yes [id number] ADMINISTER [facility] 08-05 62 UNITS ity of ([place] 00:00: [place] THE [place] FLEXT[place] 00 SKIN THREE [facility] U-200) 200 TIMES Branch unit/mL (3 DAILY mL) InPn insulin 2021-08 Yes [id number] ADMINISTER [facility] 03 62 UNITS ity of ([place] 00:00: [place] THE [place] FLEXT[place] 00 SKIN THREE [facility] U-200) 200 TIMES Branch unit/mL (3 DAILY mL) InPn insulin 2021-08 Yes [id number] ADMINISTER [facility] 03 62 UNITS ity of ([place] 00:00: [place] THE [place] FLEXT[place] 00 SKIN THREE [facility] U-200) 200 TIMES Branch unit/mL (3 DAILY mL) InPn insulin 2021-08 Yes [id number] ADMINISTER [facility] 03 62 UNITS ity of ([place] 00:00: [place] THE [place] FLEXT[place] 00 SKIN THREE [facility] U-200) 200 TIMES Branch unit/mL (3 DAILY mL) InPn insulin 2021-08 Yes [id number] ADMINISTER [facility] 03 62 UNITS ity of ([place] 00:00: [place] THE [place] FLEXT[place] 00 SKIN THREE [facility] U-200) 200 TIMES Branch unit/mL (3 DAILY mL) InPn insulin 2021-08 Yes [id number] ADMINISTER [facility]-03 62 UNITS ity of ([place] 00:00: [place] THE [place] FLEXT[place] 00 SKIN THREE [facility] U-200) 200 TIMES Branch unit/mL (3 DAILY mL) InPn insulin 2021-08 Yes [id number] ADMINISTER [facility] -03 62 UNITS ity of ([place] 00:00: [place] THE [place]LE[place] 00 SKIN THREE [facility] U-200) 200 TIMES Branch unit/mL (3 DAILY mL) InPn insulin 2021-08 Yes [id number] ADMINISTER [facility] 03 62 UNITS ity of ([place] 00:00: [place] THE [place]LE[place] 00 SKIN THREE [facility] U-200) 200 TIMES Branch unit/mL (3 DAILY mL) InPn insulin 2021-08 Yes [id number] ADMINISTER [facility] 08-05 62 UNITS ity of ([place] 00:00: [place] THE [place]LE[place] 00 SKIN THREE [facility] U-200) 200 TIMES Branch unit/mL (3 DAILY mL) InPn insulin 2021-08 Yes [id number] ADMINISTER [facility] 03 62 UNITS ity of ([place] 00:00: [place] THE [place]LE[place] 00 SKIN THREE [facility] U-200) 200 TIMES Branch unit/mL (3 DAILY mL) InPn insulin 2021-08 Yes [id number] ADMINISTER [facility] 03 62 UNITS ity of ([place] 00:00: [place] THE [place] FLEXT[place] 00 SKIN THREE [facility] U-200) 200 TIMES Branch unit/mL (3 DAILY mL) InPn insulin 2021-08 Yes [id number] ADMINISTER [facility] 03 62 UNITS ity of ([place] 00:00: [place] THE [place] FLEXT[place] 00 SKIN THREE [facility] U-200) 200 TIMES Branch unit/mL (3 DAILY mL) InPn insulin 2021-08 Yes [id number] ADMINISTER [facility] -03 62 UNITS ity of ([place] 00:00: [place] THE [place] FLE[place] 00 SKIN THREE [facility] U-200) 200 TIMES Branch unit/mL (3 DAILY mL) InPn insulin 2021-08 Yes [id number] ADMINISTER [facility]-03 62 UNITS ity of ([place] 00:00: [place] THE [place]LE[place] 00 SKIN THREE [facility] U-200) 200 TIMES Branch unit/mL (3 DAILY mL) InPn insulin 2021-08 Yes [id number] ADMINISTER [facility] -03 62 UNITS ity of ([place] 00:00: [place] THE [place]LE[place] 00 SKIN THREE [facility] U-200) 200 TIMES Branch unit/mL (3 DAILY mL) InPn insulin 2021-08 Yes [id number] ADMINISTER [facility] 08-05 62 UNITS ity of ([place] 00:00: [place] THE [place]LE[place] 00 SKIN THREE [facility] U-200) 200 TIMES Branch unit/mL (3 DAILY mL) InPn insulin 2021-08 Yes [id number] ADMINISTER [facility] 08-05 62 UNITS ity of ([place] 00:00: [place] THE [place]LE[place] 00 SKIN THREE [facility] U-200) 200 TIMES Branch unit/mL (3 DAILY mL) InPn insulin 2021-08 Yes [id number] ADMINISTER [facility] 08-05 62 UNITS ity of ([place] 00:00: [place] THE [place]LE[place] 00 SKIN THREE [facility] U-200) 200 TIMES Branch unit/mL (3 DAILY mL) InPn insulin 2021-08 Yes [id number] ADMINISTER [facility] 08-05 62 UNITS ity of ([place] 00:00: [place] THE [place]LE[place] 00 SKIN THREE [facility] U-200) 200 TIMES Branch unit/mL (3 DAILY mL) InPn insulin 2021-08 Yes [id number] ADMINISTER [facility] 03 62 UNITS ity of ([place] 00:00: [place] THE [place]LE[place] 00 SKIN THREE [facility] U-200) 200 TIMES Branch unit/mL (3 DAILY mL) InPn insulin 2021-08 Yes [id number] ADMINISTER [facility] -03 62 UNITS ity of ([place] 00:00: [place] THE [place]LE[place] 00 SKIN THREE [facility] U-200) 200 TIMES Branch unit/mL (3 DAILY mL) InPn insulin 2021-08 Yes [id number] ADMINISTER [facility] 08-05 62 UNITS ity of ([place] 00:00: [place] THE [place]LE[place] 00 SKIN THREE [facility] U-200) 200 TIMES Branch unit/mL (3 DAILY mL) InPn insulin 2021-08 Yes [id number] ADMINISTER [facility] 08-05 62 UNITS ity of ([place] 00:00: [place] THE [place]LE[place] 00 SKIN THREE [facility] U-200) 200 TIMES Branch unit/mL (3 DAILY mL) InPn insulin 2021-08 Yes [id number] ADMINISTER [facility] 08-05 62 UNITS ity of ([place] 00:00: [place] THE [place]LE[place] 00 SKIN THREE [facility] U-200) 200 TIMES Branch unit/mL (3 DAILY mL) InPn insulin 2021-08 Yes [id number] ADMINISTER [facility] 08-05 62 UNITS ity of ([place] 00:00: [place]LE[place] 00 SKIN THREE [facility] U-200) 200 TIMES Branch unit/mL (3 DAILY mL) InPn insulin 2021-08 Yes [id number] ADMINISTER [facility] 08-05 62 UNITS ity of ([place] 00:00: [place] THE [place]LE[place] 00 SKIN THREE [facility] U-200) 200 TIMES Branch unit/mL (3 DAILY mL) InPn insulin 2021-08 Yes [id number] ADMINISTER [facility] 08-05 62 UNITS ity of ([place] 00:00: [place]LE[place] 00 SKIN THREE [facility] U-200) 200 TIMES Branch unit/mL (3 DAILY mL) InPn insulin 2021-08 Yes [id number] ADMINISTER [facility] 08-05 62 UNITS ity of ([place] 00:00: [place]LE[place] 00 SKIN THREE [facility] U-200) 200 TIMES Branch unit/mL (3 DAILY mL) InPn insulin 2021-08 Yes [id number] ADMINISTER [facility] 08-05 62 UNITS ity of ([place] 00:00: [place] THE [place]LE[place] 00 SKIN THREE [facility] U-200) 200 TIMES Branch unit/mL (3 DAILY mL) InPn insulin 2021-08 Yes [id number] ADMINISTER [facility] 08-05 62 UNITS ity of ([place] 00:00: [place] THE [place]LE[place] 00 SKIN THREE [facility] U-200) 200 TIMES Branch unit/mL (3 DAILY mL) InPn insulin 2021-08 Yes [id number] ADMINISTER [facility] 08-05 62 UNITS ity of ([place] 00:00: [place] THE [place]LE[place] 00 SKIN THREE [facility] U-200) 200 TIMES Branch unit/mL (3 DAILY mL) InPn insulin 2021-08 Yes [id number] ADMINISTER [facility] 08-05 62 UNITS ity of ([place] 00:00: [place] THE [place]LE[place] 00 SKIN THREE [facility] U-200) 200 TIMES Branch unit/mL (3 DAILY mL) InPn insulin 2021-08 Yes [id number] ADMINISTER [facility] 08-05 62 UNITS ity of ([place] 00:00: [place] THE [place]LEXT[place] 00 SKIN THREE [facility] U-200) 200 TIMES Branch unit/mL (3 DAILY mL) InPn insulin 2021-08 Yes [id number] ADMINISTER [facility] 08-05 62 UNITS ity of ([place] 00:00: [place] THE [place]LEXT[place] 00 SKIN THREE [facility] U-200) 200 TIMES Branch unit/mL (3 DAILY mL) InPn insulin 2021-08 Yes [id number] ADMINISTER [facility] 08-05 62 UNITS ity of ([place] 00:00: [place] THE [place]LEXT[place] 00 SKIN THREE [facility] U-200) 200 TIMES Branch unit/mL (3 DAILY mL) InPn insulin 2021-08 Yes [id number] ADMINISTER [facility] 08-05 62 UNITS ity of ([place] 00:00: [place] THE [place]LE[place] 00 SKIN THREE [facility] U-200) 200 TIMES Branch unit/mL (3 DAILY mL) InPn insulin 2021-08 Yes [id number] ADMINISTER [facility] 08-05 62 UNITS ity [...] Indication s: chronic pain AMLODIPINE 2021-08 Yes [id number] 5mg TAKE 1 U nivers 5 mg tablet 0-28 TABLET BY ity of 00:00: MOUTH [place] DAILY Medical Branch AMLODIPINE 2021-08 Yes [id number] 5mg TAKE 1 U nivers 5 mg tablet 0-28 TABLET BY ity of 00:00: MOUTH [place] DAILY Medical Branch AMLODIPINE 2021-08 Yes [id number] 5mg TAKE 1 U nivers 5 mg tablet 0-28 TABLET BY ity of 00:00: MOUTH [place] DAILY Medical Branch AMLODIPINE 2021-08 Yes [id number] 5mg TAKE 1 U nivers 5 mg tablet 0-28 TABLET BY ity of 00:00: MOUTH [place] DAILY Medical Branch AMLODIPINE 2021-08 Yes [id number] 5mg TAKE 1 U nivers 5 mg tablet 0-28 TABLET BY ity of 00:00: MOUTH [place] 00 DAILY Medical Branch AMLODIPINE 2021-08- No [id number] 5mg TAKE 1 [facility] 5 mg tablet 0-28 11-08 TABLET BY it y of 00:00: 00:00 MOUTH [place] 00 :00 DAILY Medical Branch AMLODIPINE 2021-08- No [id number] 5mg TAKE 1 [facility] 5 mg tablet 0-28 11-08 TABLET BY it y of 00:00: 00:00 MOUTH [place] 00 :00 DAILY Medical Branch AMLODIPINE 2021-08- No [id number] 5mg TAKE 1 [facility] 5 mg tablet 0-28 11-08 TABLET BY it y of 00:00: 00:00 MOUTH [place] 00 :00 DAILY Medical Branch TIZANIDINE 2021-08 Yes [id number] TAKE 1 [facility] 4 mg tablet 0-24 TABLET BY ity of 00:00: MOUTH [place] 00 EVERY 8 Medical HOURS Branch NEEDED TIZANIDINE 2021-08 Yes [id number] TAKE 1 [facility] 4 mg tablet 0-24 TABLET BY ity of 00:00: MOUTH [place] 00 EVERY 8 Medical HOURS Branch NEEDED TIZANIDINE 2021-08 Yes [id number] TAKE 1 [facility] 4 mg tablet 0-24 TABLET BY ity of 00:00: MOUTH [place] 00 EVERY 8 Medical HOURS Branch NEEDED TIZANIDINE 2022-1 Yes [id number] TAKE 1 [facility] 4 mg tablet 0-24 TABLET BY ity of 00:00: MOUTH [place] 00 EVERY 8 Medical HOURS Branch NEEDED TIZANIDINE 2022-1 Yes [id number] TAKE 1 [facility] 4 mg tablet 0-24 TABLET BY ity of 00:00: MOUTH [place] 00 EVERY 8 Medical HOURS Branch NEEDED TIZANIDINE 2022-1 Yes [id number] TAKE 1 [facility] 4 mg tablet 0-24 TABLET BY ity of 00:00: MOUTH [place] 00 EVERY 8 Medical HOURS Branch NEEDED TIZANIDINE 2022-1 Yes [id number] TAKE 1 [facility] 4 mg tablet 0-24 TABLET BY ity of 00:00: MOUTH [place] 00 EVERY 8 Medical HOURS Branch NEEDED TIZANIDINE 2-1 Yes [id number] TAKE 1 [facility] 4 mg tablet 0-24 TABLET BY ity of 00:00: MOUTH [place] 00 EVERY 8 Medical HOURS Branch NEEDED TIZANIDINE 2-1 Yes [id number] TAKE 1 [facility] 4 mg tablet 0-24 TABLET BY ity of 00:00: MOUTH [place] 00 EVERY 8 Medical HOURS Branch NEEDED TIZANIDINE 2-1 Yes [id number] TAKE 1 [facility] 4 mg tablet 0-24 TABLET BY ity of 00:00: MOUTH [place] 00 EVERY 8 Medical HOURS Branch NEEDED TIZANIDINE 2-1 Yes [id number] TAKE 1 [facility] 4 mg tablet 0-24 TABLET BY ity of 00:00: MOUTH [place] 00 EVERY 8 Medical HOURS Branch NEEDED TIZANIDINE 2-1 Yes [id number] TAKE 1 [facility] 4 mg tablet 0-24 TABLET BY ity of 00:00: MOUTH [place] 00 EVERY 8 Medical HOURS Branch NEEDED TIZANIDINE 2022-1 Yes [id number] TAKE 1 [facility] 4 mg tablet 0-24 TABLET BY ity of 00:00: MOUTH [place] 00 EVERY 8 Medical HOURS Branch NEEDED TIZANIDINE 2022-1 Yes [id number] TAKE 1 [facility] 4 mg tablet 0-24 TABLET BY ity of 00:00: MOUTH [place] 00 EVERY 8 Medical HOURS Branch NEEDED TIZANIDINE 2-1 Yes [id number] TAKE 1 [facility] 4 mg tablet 0-24 TABLET BY ity of 00:00: MOUTH [place] 00 EVERY 8 Medical HOURS Branch NEEDED TIZANIDINE 2022-1 Yes [id number] TAKE 1 [facility] 4 mg tablet 0-24 TABLET BY ity of 00:00: MOUTH [place] 00 EVERY 8 Medical HOURS Branch NEEDED TIZANIDINE 2022-1 Yes [id number] TAKE 1 [facility] 4 mg tablet 0-24 TABLET BY ity of 00:00: MOUTH [place] 00 EVERY 8 Medical HOURS Branch NEEDED TIZANIDINE 2022-1 Yes [id number] TAKE 1 [facility] 4 mg tablet 0-24 TABLET BY ity of 00:00: MOUTH [place] 00 EVERY 8 Medical HOURS Branch NEEDED TIZANIDINE 2022-1 Yes [id number] TAKE 1 [facility] 4 mg tablet 0-24 TABLET BY ity of 00:00: MOUTH [place] 00 EVERY 8 Medical HOURS Branch NEEDED TIZANIDINE 2-1 Yes [id number] TAKE 1 [facility] 4 mg tablet 0-24 TABLET BY ity of 00:00: MOUTH [place] 00 EVERY 8 Medical HOURS Branch NEEDED TIZANIDINE 2-1 Yes [id number] TAKE 1 [facility] 4 mg tablet 0-24 TABLET BY ity of 00:00: MOUTH [place] 00 EVERY 8 Medical HOURS Branch NEEDED TIZANIDINE 2-1 Yes [id number] TAKE 1 [facility] 4 mg tablet 0-24 TABLET BY ity of 00:00: MOUTH [place] 00 EVERY 8 Medical HOURS Branch NEEDED TIZANIDINE 2-1 Yes [id number] TAKE 1 [facility] 4 mg tablet 0-24 TABLET BY ity of 00:00: MOUTH [place] 00 EVERY 8 Medical HOURS Branch NEEDED TIZANIDINE 2-1 Yes [id number] TAKE 1 [facility] 4 mg tablet 0-24 TABLET BY ity of 00:00: MOUTH [place] 00 EVERY 8 Medical HOURS Branch NEEDED TIZANIDINE 2022-1 Yes [id number] TAKE 1 [facility] 4 mg tablet 0-24 TABLET BY ity of 00:00: MOUTH [place] 00 EVERY 8 Medical HOURS Branch NEEDED TIZANIDINE 2022-1 Yes [id number] TAKE 1 [facility] 4 mg tablet 0-24 TABLET BY ity of 00:00: MOUTH [place] 00 EVERY 8 Medical HOURS Branch NEEDED TIZANIDINE 2022-1 Yes [id number] TAKE 1 [facility] 4 mg tablet 0-24 TABLET BY ity of 00:00: MOUTH [place] 00 EVERY 8 Medical HOURS Branch NEEDED TIZANIDINE 2022-1 Yes [id number] TAKE 1 [facility] 4 mg tablet 0-24 TABLET BY ity of 00:00: MOUTH [place] 00 EVERY 8 Medical HOURS Branch NEEDED TIZANIDINE 2022-1 Yes [id number] TAKE 1 [facility] 4 mg tablet 0-24 TABLET BY ity of 00:00: MOUTH [place] 00 EVERY 8 Medical HOURS Branch NEEDED TIZANIDINE 2022-1 Yes [id number] TAKE 1 [facility] 4 mg tablet 0-24 TABLET BY ity of 00:00: MOUTH [place] 00 EVERY 8 Medical HOURS Branch NEEDED TIZANIDINE 2022-1 Yes [id number] TAKE 1 [facility] 4 mg tablet 0-24 TABLET BY ity of 00:00: MOUTH [place] 00 EVERY 8 Medical HOURS Branch NEEDED TIZANIDINE 2022-1 Yes [id number] TAKE 1 [facility] 4 mg tablet 0-24 TABLET BY ity of 00:00: MOUTH [place] 00 EVERY 8 Medical HOURS Branch NEEDED TIZANIDINE 2-1 Yes [id number] TAKE 1 [facility] 4 mg tablet 0-24 TABLET BY ity of 00:00: MOUTH [place] 00 EVERY 8 Medical HOURS Branch NEEDED TIZANIDINE 2-1 Yes [id number] TAKE 1 [facility] 4 mg tablet 0-24 TABLET BY ity of 00:00: MOUTH [place] 00 EVERY 8 Medical HOURS Branch NEEDED TIZANIDINE 2-1 Yes [id number] TAKE 1 [facility] 4 mg tablet 0-24 TABLET BY ity of 00:00: MOUTH [place] 00 EVERY 8 Medical HOURS Branch NEEDED TIZANIDINE 2-1 Yes [id number] TAKE 1 [facility] 4 mg tablet 0-24 TABLET BY ity of 00:00: MOUTH [place] 00 EVERY 8 Medical HOURS Branch NEEDED TIZANIDINE 2-1 Yes [id number] TAKE 1 [facility] 4 mg tablet 0-24 TABLET BY ity of 00:00: MOUTH [place] 00 EVERY 8 Medical HOURS Branch NEEDED TIZANIDINE 2022-1 Yes [id number] TAKE 1 [facility] 4 mg tablet 0-24 TABLET BY ity of 00:00: MOUTH [place] 00 EVERY 8 Medical HOURS Branch NEEDED TIZANIDINE 2022-1 Yes [id number] TAKE 1 [facility] 4 mg tablet 0-24 TABLET BY ity of 00:00: MOUTH [place] 00 EVERY 8 Medical HOURS Branch NEEDED TIZANIDINE 2-1 Yes [id number] TAKE 1 [facility] 4 mg tablet 0-24 TABLET BY ity of 00:00: MOUTH [place] 00 EVERY 8 Medical HOURS Branch NEEDED TIZANIDINE 2022-1 Yes [id number] TAKE 1 [facility] 4 mg tablet 0-24 TABLET BY ity of 00:00: MOUTH [place] 00 EVERY 8 Medical HOURS Branch NEEDED TIZANIDINE 2022-1 Yes [id number] TAKE 1 [facility] 4 mg tablet 0-24 TABLET BY ity of 00:00: MOUTH [place] 00 EVERY 8 Medical HOURS Branch NEEDED TIZANIDINE 2022-1 Yes [id number] TAKE 1 [facility] 4 mg tablet 0-24 TABLET BY ity of 00:00: MOUTH [place] 00 EVERY 8 Medical HOURS Branch NEEDED TIZANIDINE 2022-1 Yes [id number] TAKE 1 [facility] 4 mg tablet 0-24 TABLET BY ity of 00:00: MOUTH [place] 00 EVERY 8 Medical HOURS Branch NEEDED TIZANIDINE 2-1 Yes [id number] TAKE 1 [facility] 4 mg tablet 0-24 TABLET BY ity of 00:00: MOUTH [place] 00 EVERY 8 Medical HOURS Branch NEEDED TIZANIDINE 2-1 Yes [id number] TAKE 1 [facility] 4 mg tablet 0-24 TABLET BY ity of 00:00: MOUTH [place] 00 EVERY 8 Medical HOURS Branch NEEDED TIZANIDINE 2-1 Yes [id number] TAKE 1 [facility] 4 mg tablet 0-24 TABLET BY ity of 00:00: MOUTH [place] 00 EVERY 8 Medical HOURS Branch NEEDED TIZANIDINE 2-1 Yes [id number] TAKE 1 [facility] 4 mg tablet 0-24 TABLET BY ity of 00:00: MOUTH [place] 00 EVERY 8 Medical HOURS Branch NEEDED TIZANIDINE 2-1 Yes [id number] TAKE 1 [facility] 4 mg tablet 0-24 TABLET BY ity of 00:00: MOUTH [place] 00 EVERY 8 Medical HOURS Branch NEEDED TIZANIDINE 2022-1 Yes [id number] TAKE 1 [facility] 4 mg tablet 0-24 TABLET BY ity of 00:00: MOUTH [place] 00 EVERY 8 Medical HOURS Branch NEEDED TIZANIDINE 2022-1 Yes [id number] TAKE 1 [facility] 4 mg tablet 0-24 TABLET BY ity of 00:00: MOUTH [place] 00 EVERY 8 Medical HOURS Branch NEEDED TIZANIDINE 2022-1 Yes [id number] TAKE 1 [facility] 4 mg tablet 0-24 TABLET BY ity of 00:00: MOUTH [place] 00 EVERY 8 Medical HOURS Branch NEEDED TIZANIDINE 2022-1 Yes [id number] TAKE 1 [facility] 4 mg tablet 0-24 TABLET BY ity of 00:00: MOUTH [place] 00 EVERY 8 Medical HOURS Branch NEEDED ALBUTEROL 2021-08 Yes [id number] INHALE 2 [facility] 90 0-21 PUFFS BY ity of mcg/actuati 00:00: MOUTH [place] on inhaler 00 EVERY 6 Medica l HOURS Branch NEEDED FOR WHEEZING, SHORTNESS OF BREATH OR BRONCHOSPA SMS ALBUTEROL 2021-08 Yes [id number] INHALE 2 [facility] 90 0-21 PUFFS BY ity of mcg/actuati 00:00: MOUTH [place] on inhaler 00 EVERY 6 Medica l HOURS Branch NEEDED FOR WHEEZING, SHORTNESS OF BREATH OR BRONCHOSPA SMS METFORMIN 2021-08 Yes [id number] TAKE 1 U nivers 850 mg 0-21 TABLET BY ity of tablet 00:00: MOUTH [place] 00 THREE Medical TIMES Branch DAILY QUINAPRIL 2021-08 Yes [id number] 40mg TAKE 1 [facility] 40 mg 0-21 TABLET BY ity of tablet 00:00: MOUTH [place] 00 EVERY Medical MORNING Branch GLIPIZIDE 2021-08 Yes [id number] 5mg TAKE 1 U nivers XL 5 mg 24 0-21 TABLET BY ity of hr tablet 00:00: MOUTH [place] 00 DAILY WITH Medical BREAKFAST Branch amoxicillin 2021-08 Yes [id number] 500mg Take 1 [facility] 500 mg 0-21 tablet by ity of tablet 00:00: mouth in [place] 00 the Medical morning Branch and 1 tablet in the evening. empaglifloz 2021-08 Yes [id number] 10mg Take 1 [facility] in 0-21 tablet by ity of ([place]) 00:00: mouth in [place] 10 mg 00 the Medical morning. Branch ALBUTEROL 2021-08 Yes [id number] INHALE 2 [facility] 90 0-21 PUFFS BY ity of mcg/actuati 00:00: MOUTH [place] on inhaler 00 EVERY 6 Medica l HOURS Branch NEEDED FOR WHEEZING, SHORTNESS OF BREATH OR BRONCHOSPA SMS QUINAPRIL 2021-08 Yes [id number] 40mg TAKE 1 [facility] 40 mg 0-21 TABLET BY ity of tablet 00:00: MOUTH [place] 00 EVERY Medical MORNING Branch amoxicillin 2021-08 Yes [id number] 500mg Take 1 [facility] 500 mg 0-21 tablet by ity of tablet 00:00: mouth in [place] 00 the Medical morning Branch and 1 tablet in the evening. empaglifloz 2021-08 Yes [id number] 10mg Take 1 [facility] in 0-21 tablet by ity of ([place]) 00:00: mouth in [place] 10 mg 00 the Medical morning. Branch ALBUTEROL 2021-08 Yes [id number] INHALE 2 [facility] 90 0-21 PUFFS BY ity of mcg/actuati 00:00: MOUTH [place] on inhaler 00 EVERY 6 Medica l HOURS Branch NEEDED FOR WHEEZING, SHORTNESS OF BREATH OR BRONCHOSPA SMS QUINAPRIL 2021-08 Yes [id number] 40mg TAKE 1 [facility] 40 mg 0-21 TABLET BY ity of tablet 00:00: MOUTH [place] 00 EVERY Medical MORNING Branch amoxicillin 2021-08 Yes [id number] 500mg Take 1 [facility] 500 mg 0-21 tablet by ity of tablet 00:00: mouth in [place] 00 the Medical morning Branch and 1 tablet in the evening. empaglifloz 2021-08 Yes [id number] 10mg Take 1 [facility] in 0-21 tablet by ity of ([place]) 00:00: mouth in [place] 10 mg 00 the Medical morning. Branch QUINAPRIL 2021-08 Yes [id number] 40mg TAKE 1 [facility] 40 mg 0-21 TABLET BY ity of tablet 00:00: MOUTH [place] 00 EVERY Medical MORNING Branch ALBUTEROL 2021-08 Yes [id number] INHALE 2 [facility] 90 0-21 PUFFS BY ity of mcg/actuati 00:00: MOUTH [place] on inhaler 00 EVERY 6 Medica l HOURS Branch NEEDED FOR WHEEZING, SHORTNESS OF BREATH OR BRONCHOSPA SMS METFORMIN 2021-08 Yes [id number] TAKE 1 [facility] nivers 850 mg 0-21 TABLET BY ity of tablet 00:00: MOUTH [place] 00 THREE Medical TIMES Branch DAILY QUINAPRIL 2021-08 Yes [id number] 40mg TAKE 1 [facility] 40 mg 0-21 TABLET BY ity of tablet 00:00: MOUTH [place] 00 EVERY Medical MORNING Branch GLIPIZIDE 2021-08 Yes [id number] 5mg TAKE 1 [facility] n[facility] XL 5 mg 24 0-21 TABLET BY ity of hr tablet 00:00: MOUTH [place] 00 DAILY WITH Medical BREAKFAST Branch amoxicillin 2021-08 Yes [id number] 500mg Take 1 [facility] 500 mg 0-21 tablet by ity of tablet 00:00: mouth in [place] 00 the Medical morning Branch and 1 tablet in the evening. empaglifloz 2021-08 Yes [id number] 10mg Take 1 [facility] in 0-21 tablet by ity of ([place]) 00:00: mouth in [place] 10 mg 00 the Medical morning. Branch ALBUTEROL 2021-08 Yes [id number] INHALE 2 [facility] 90 0-21 PUFFS BY ity of mcg/actuati 00:00: MOUTH [place] on inhaler 00 EVERY 6 Medica l HOURS Branch NEEDED FOR WHEEZING, SHORTNESS OF BREATH OR BRONCHOSPA SMS METFORMIN 2021-08 Yes [id number] TAKE 1 [facility] nivers 850 mg 0-21 TABLET BY ity of tablet 00:00: MOUTH [place] THREE Medical TIMES Branch DAILY QUINAPRIL 2021-08 Yes [id number] 40mg TAKE 1 [facility] 40 mg 0-21 TABLET BY ity of tablet 00:00: MOUTH [place] EVERY Medical MORNING Branch GLIPIZIDE 2021-08 Yes [id number] 5mg TAKE 1 [facility] n[facility] XL 5 mg 24 0-21 TABLET BY ity of hr tablet 00:00: MOUTH [place] 00 DAILY WITH Medical BREAKFAST Branch amoxicillin 2021-08 Yes [id number] 500mg Take 1 [facility] 500 mg 0-21 tablet by ity of tablet 00:00: mouth in [place] 00 the Medical morning Branch and 1 tablet in the evening. empaglifloz 2021-08 Yes [id number] 10mg Take 1 [facility] in 0-21 tablet by ity of ([place]) 00:00: mouth in [place] 10 mg 00 the Medical morning. Branch ALBUTEROL 2021-08 Yes [id number] INHALE 2 [facility] 90 0-21 PUFFS BY ity of mcg/actuati 00:00: MOUTH [place] on inhaler 00 EVERY 6 Medica l HOURS Branch NEEDED FOR WHEEZING, SHORTNESS OF BREATH OR BRONCHOSPA SMS METFORMIN 2021-08 Yes [id number] TAKE 1 [facility] nivers 850 mg 0-21 TABLET BY ity of tablet 00:00: MOUTH [place] 00 THREE Medical TIMES Branch DAILY QUINAPRIL 2021-08 Yes [id number] 40mg TAKE 1 [facility] 40 mg 0-21 TABLET BY ity of tablet 00:00: MOUTH [place] 00 EVERY Medical MORNING Branch GLIPIZIDE 2021-08 Yes [id number] 5mg TAKE 1 [facility] XL 5 mg 24 0-21 TABLET BY ity of hr tablet 00:00: MOUTH [place] 00 DAILY WITH Medical BREAKFAST Branch amoxicillin 2021-08 Yes [id number] 500mg Take 1 [facility] 500 mg 0-21 tablet by ity of tablet 00:00: mouth in [place] 00 the Medical morning Branch and 1 tablet in the evening. empaglifloz 2021-08 Yes [id number] 10mg Take 1 [facility] in 0-21 tablet by ity of ([place]) 00:00: mouth in [place] 10 mg 00 the Medical morning. Branch ALBUTEROL 2021-08 Yes [id number] INHALE 2 [facility] 90 0-21 PUFFS BY ity of mcg/actuati 00:00: MOUTH [place] on inhaler 00 EVERY 6 Medica l HOURS Branch NEEDED FOR WHEEZING, SHORTNESS OF BREATH OR BRONCHOSPA SMS METFORMIN 2021-08 Yes [id number] TAKE 1 [facility] nivers 850 mg 0-21 TABLET BY ity of tablet 00:00: MOUTH [place] THREE Medical TIMES Branch DAILY QUINAPRIL 2021-08 Yes [id number] 40mg TAKE 1 [facility] 40 mg 0-21 TABLET BY ity of tablet 00:00: MOUTH [place] 00 EVERY Medical MORNING Branch GLIPIZIDE 2021-08 Yes [id number] 5mg TAKE 1 [facility] XL 5 mg 24 0-21 TABLET BY ity of hr tablet 00:00: MOUTH [place] 00 DAILY WITH Medical BREAKFAST Branch amoxicillin 2021-08 Yes [id number] 500mg Take 1 [facility] 500 mg 0-21 tablet by ity of tablet 00:00: mouth in [place] 00 the Medical morning Branch and 1 tablet in the evening. empaglifloz 2021-08 Yes [id number] 10mg Take 1 [facility] in 0-21 tablet by ity of ([place]) 00:00: mouth in [place] 10 mg 00 the Medical morning. Branch ALBUTEROL 2021-08 Yes [id number] INHALE 2 [facility] 90 0-21 PUFFS BY ity of mcg/actuati 00:00: MOUTH [place] on inhaler 00 EVERY 6 Medica l HOURS Branch NEEDED FOR WHEEZING, SHORTNESS OF BREATH OR BRONCHOSPA SMS METFORMIN 2021-08 Yes [id number] TAKE 1 [facility] n[facility] 850 mg 0-21 TABLET BY ity of tablet 00:00: MOUTH [place] 00 THREE Medical TIMES Branch DAILY QUINAPRIL 2021-08 Yes [id number] 40mg TAKE 1 [facility] 40 mg 0-21 TABLET BY [facility] of tablet 00:00: MOUTH [place] 00 EVERY Medical MORNING Branch GLIPIZIDE 2021-08 Yes [id number] 5mg TAKE 1 [facility] XL 5 mg 24 0-21 TABLET BY ity of hr tablet 00:00: MOUTH [place] 00 DAILY WITH Medical BREAKFAST Branch amoxicillin 2021-08 Yes [id number] 500mg Take 1 [facility] 500 mg 0-21 tablet by [facility] of tablet 00:00: mouth in [place] 00 the Medical morning Branch and 1 tablet in the evening. empaglifloz 2021-08 Yes [id number] 10mg Take 1 [facility] in 0-21 tablet by [facility] of ([place]) 00:00: mouth in [place] 10 mg 00 the Medical morning. Branch ALBUTEROL 2021-08 Yes [id number] INHALE 2 [facility] 90 0-21 PUFFS BY [facility] of mcg/actuati 00:00: MOUTH [place] on inhaler 00 EVERY 6 Medica l HOURS Branch NEEDED FOR WHEEZING, SHORTNESS OF BREATH OR BRONCHOSPA SMS METFORMIN 2021-08 Yes [id number] TAKE 1 [facility] 850 mg 0-21 TABLET BY [facility] of tablet 00:00: MOUTH [place] 00 THREE Medical TIMES Branch DAILY QUINAPRIL 2021-08 Yes [id number] 40mg TAKE 1 [facility] 40 mg 0-21 TABLET BY [facility] tablet 00:00: MOUTH [place] 00 EVERY Medical MORNING Branch GLIPIZIDE 2021-08 Yes [id number] 5mg TAKE 1 [facility] XL 5 mg 24 0-21 TABLET BY [facility] of hr tablet 00:00: MOUTH [place] 00 DAILY WITH Medical BREAKFAST Branch amoxicillin 2021-08 Yes [id number] 500mg Take 1 [facility] 500 mg 0-21 tablet by [facility] tablet 00:00: mouth in [place] 00 the Medical morning Branch and 1 tablet in the evening. empaglifloz 2021-08 Yes [id number] 10mg Take 1 [facility] in 0-21 tablet by [facility] of ([place]) 00:00: mouth in [place] 10 mg 00 the Medical morning. Branch ALBUTEROL 2021-08 Yes [id number] INHALE 2 [facility] 90 0-21 PUFFS BY [facility] of mcg/actuati 00:00: MOUTH [place] on inhaler 00 EVERY 6 Medica l HOURS Branch NEEDED FOR WHEEZING, SHORTNESS OF BREATH OR BRONCHOSPA SMS METFORMIN 2021-08 Yes [id number] TAKE 1 [facility] 850 mg 0-21 TABLET BY [facility] of tablet 00:00: MOUTH [place] 00 THREE Medical TIMES Branch DAILY QUINAPRIL 2021-08 Yes [id number] 40mg TAKE 1 [facility] 40 mg 0-21 TABLET BY [facility] tablet 00:00: MOUTH [place] 00 EVERY Medical MORNING Branch GLIPIZIDE 2021-08 Yes [id number] 5mg TAKE 1 [facility] XL 5 mg 24 0-21 TABLET BY [facility] hr tablet 00:00: MOUTH [place] 00 DAILY WITH Medical BREAKFAST Branch amoxicillin 2021-08 Yes [id number] 500mg Take 1 [facility] 500 mg 0-21 tablet by [facility] of tablet 00:00: mouth in [place] 00 the Medical morning Branch and 1 tablet in the evening. empaglifloz 2021-08 Yes [id number] 10mg Take 1 [facility] in 0-21 tablet by [facility] of ([place]) 00:00: mouth in [place] 10 mg 00 the Medical morning. Branch ALBUTEROL 2021-08 Yes [id number] INHALE 2 [facility] 90 0-21 PUFFS BY [facility] of mcg/actuati 00:00: MOUTH [place] on inhaler 00 EVERY 6 Medica l HOURS Branch NEEDED FOR WHEEZING, SHORTNESS OF BREATH OR BRONCHOSPA [facility] METFORMIN 2021-08 Yes [id number] TAKE 1 [facility] 850 mg 0-21 TABLET BY [facility] of tablet 00:00: MOUTH [place] 00 THREE Medical TIMES Branch DAILY QUINAPRIL 2021-08 Yes [id number] 40mg TAKE 1 [facility] 40 mg 0-21 TABLET BY [facility] of tablet 00:00: MOUTH [place] 00 EVERY Medical MORNING Branch GLIPIZIDE 2021-08 Yes [id number] 5mg TAKE 1 [facility] XL 5 mg 24 0-21 TABLET BY [facility] of hr tablet 00:00: MOUTH [place] 00 DAILY WITH Medical BREAKFAST Branch amoxicillin 2021-08 Yes [id number] 500mg Take 1 [facility] 500 mg 0-21 tablet by [facility] of tablet 00:00: mouth in [place] 00 the Medical morning Branch and 1 tablet in the evening. empaglifloz 2021-08 Yes [id number] 10mg Take 1 [facility] in 0-21 tablet by [facility] of ([place]) 00:00: mouth in [place] 10 mg 00 the Medical morning. Branch ALBUTEROL 2021-08 Yes [id number] INHALE 2 [facility] 90 0-21 PUFFS BY [facility] of mcg/actuati 00:00: MOUTH [place] on inhaler 00 EVERY 6 Medica l HOURS Branch NEEDED FOR WHEEZING, SHORTNESS OF BREATH OR BRONCHOSPA SMS METFORMIN 2021-08 Yes [id number] TAKE 1 [facility] 850 mg 0-21 TABLET BY [facility] of tablet 00:00: MOUTH [place] 00 THREE Medical TIMES Branch DAILY QUINAPRIL 2021-08 Yes [id number] 40mg TAKE 1 [facility] 40 mg 0-21 TABLET BY [facility] of tablet 00:00: MOUTH [place] 00 EVERY Medical MORNING Branch GLIPIZIDE 2021-08 Yes [id number] 5mg TAKE 1 [facility] XL 5 mg 24 0-21 TABLET BY [facility] of hr tablet 00:00: MOUTH [place] 00 DAILY WITH Medical BREAKFAST Branch amoxicillin 2021-08 Yes [id number] 500mg Take 1 [facility] 500 mg 0-21 tablet by [facility] of tablet 00:00: mouth in [place] 00 the Medical morning Branch and 1 tablet in the evening. empaglifloz 2021-08 Yes [id number] 10mg Take 1 [facility] in 0-21 tablet by [facility] of ([place]) 00:00: mouth in [place] 10 mg 00 the Medical morning. Branch ALBUTEROL 2021-08 Yes [id number] INHALE 2 [facility] 90 0-21 PUFFS BY ity of mcg/actuati 00:00: MOUTH [place] on inhaler 00 EVERY 6 Medica l HOURS Branch NEEDED FOR WHEEZING, SHORTNESS OF BREATH OR BRONCHOSPA SMS METFORMIN 2021-08 Yes [id number] TAKE 1 [facility] 850 mg 0-21 TABLET BY [facility] of tablet 00:00: MOUTH [place] 00 THREE Medical TIMES Branch DAILY QUINAPRIL 2021-08 Yes [id number] 40mg TAKE 1 [facility] 40 mg 0-21 TABLET BY [facility] of tablet 00:00: MOUTH [place] 00 EVERY Medical MORNING Branch GLIPIZIDE 2021-08 Yes [id number] 5mg TAKE 1 [facility] XL 5 mg 24 0-21 TABLET BY [facility] of hr tablet 00:00: MOUTH [place] 00 DAILY WITH Medical BREAKFAST Branch amoxicillin 2021-08 Yes [id number] 500mg Take 1 [facility] 500 mg 0-21 tablet by [facility] of tablet 00:00: mouth in [place] 00 the Medical morning Branch and 1 tablet in the evening. empaglifloz 2021-08 Yes [id number] 10mg Take 1 [facility] in 0-21 tablet by [facility] of ([place]) 00:00: mouth in [place] 10 mg 00 the Medical morning. Branch ALBUTEROL 2021-08 Yes [id number] INHALE 2 [facility] 90 0-21 PUFFS BY ity of mcg/actuati 00:00: MOUTH [place] on inhaler 00 EVERY 6 Medica l HOURS Branch NEEDED FOR WHEEZING, SHORTNESS OF BREATH OR BRONCHOSPA SMS METFORMIN 2021-08 Yes [id number] TAKE 1 [facility] 850 mg 0-21 TABLET BY [facility] of tablet 00:00: MOUTH [place] 00 THREE Medical TIMES Branch DAILY QUINAPRIL 2021-08 Yes [id number] 40mg TAKE 1 [facility] 40 mg 0-21 TABLET BY [facility] of tablet 00:00: MOUTH [place] 00 EVERY Medical MORNING Branch GLIPIZIDE 2021-08 Yes [id number] 5mg TAKE 1 [facility] XL 5 mg 24 0-21 TABLET BY it[facility] of hr tablet 00:00: MOUTH [place] 00 DAILY WITH Medical BREAKFAST Branch amoxicillin 2021-08 Yes [id number] 500mg Take 1 [facility] 500 mg 0-21 tablet by [facility] of tablet 00:00: mouth in [place] 00 the Medical morning Branch and 1 tablet in the evening. empaglifloz 2021-08 Yes [id number] 10mg Take 1 [facility] in 0-21 tablet by [facility] of ([place]) 00:00: mouth in [place] 10 mg 00 the Medical morning. Branch ALBUTEROL 2021-08 Yes [id number] INHALE 2 [facility] 90 0-21 PUFFS BY ity of mcg/actuati 00:00: MOUTH [place] on inhaler 00 EVERY 6 Medica l HOURS Branch NEEDED FOR WHEEZING, SHORTNESS OF BREATH OR BRONCHOSPA SMS METFORMIN 2021-08 Yes [id number] TAKE 1 [facility] 850 mg 0-21 TABLET BY ity of tablet 00:00: MOUTH [place] 00 THREE Medical TIMES Branch DAILY QUINAPRIL 2021-08 Yes [id number] 40mg TAKE 1 [facility] 40 mg 0-21 TABLET BY [facility] of tablet 00:00: MOUTH [place] 00 EVERY Medical MORNING Branch GLIPIZIDE 2021-08 Yes [id number] 5mg TAKE 1 [facility] XL 5 mg 24 0-21 TABLET BY [facility] of hr tablet 00:00: MOUTH [place] 00 DAILY WITH Medical BREAKFAST Branch amoxicillin 2021-08 Yes [id number] 500mg Take 1 [facility] 500 mg 0-21 tablet by [facility] of tablet 00:00: mouth in [place] 00 the Medical morning Branch and 1 tablet in the evening. empaglifloz 2021-08 Yes [id number] 10mg Take 1 [facility] in 0-21 tablet by [facility] of ([place]) 00:00: mouth in [place] 10 mg 00 the Medical morning. Branch ALBUTEROL 2021-08 Yes [id number] INHALE 2 [facility] 90 0-21 PUFFS BY ity of mcg/actuati 00:00: MOUTH [place] on inhaler 00 EVERY 6 Medica l HOURS Branch NEEDED FOR WHEEZING, SHORTNESS OF BREATH OR BRONCHOSPA SMS METFORMIN 2021-08 Yes [id number] TAKE 1 [facility] 850 mg 0-21 TABLET BY ity of tablet 00:00: MOUTH [place] THREE Medical TIMES Branch DAILY QUINAPRIL 2021-08 Yes [id number] 40mg TAKE 1 [facility] 40 mg 0-21 TABLET BY [facility] of tablet 00:00: MOUTH [place] 00 EVERY Medical MORNING Branch GLIPIZIDE 2021-08 Yes [id number] 5mg TAKE 1 [facility] XL 5 mg 24 0-21 TABLET BY ity of hr tablet 00:00: MOUTH [place] 00 DAILY WITH Medical BREAKFAST Branch amoxicillin 2021-08 Yes [id number] 500mg Take 1 [facility] 500 mg 0-21 tablet by [facility] of tablet 00:00: mouth in [place] 00 the Medical morning Branch and 1 tablet in the evening. empaglifloz 2021-08 Yes [id number] 10mg Take 1 [facility] in 0-21 tablet by [facility] of ([place]) 00:00: mouth in [place] 10 mg 00 the Medical morning. Branch ALBUTEROL 2021-08 Yes [id number] INHALE 2 [facility] 90 0-21 PUFFS BY ity of mcg/actuati 00:00: MOUTH [place] on inhaler 00 EVERY 6 Medica l HOURS Branch NEEDED FOR WHEEZING, SHORTNESS OF BREATH OR BRONCHOSPA SMS METFORMIN 2021-08 Yes [id number] TAKE 1 [facility] 850 mg 0-21 TABLET BY ity of tablet 00:00: MOUTH [place] 00 THREE Medical TIMES Branch DAILY QUINAPRIL 2021-08 Yes [id number] 40mg TAKE 1 [facility] 40 mg 0-21 TABLET BY [facility] of tablet 00:00: MOUTH [place] 00 EVERY Medical MORNING Branch GLIPIZIDE 2021-08 Yes [id number] 5mg TAKE 1 [facility] XL 5 mg 24 0-21 TABLET BY ity of hr tablet 00:00: MOUTH [place] 00 DAILY WITH Medical BREAKFAST Branch amoxicillin 2021-08 Yes [id number] 500mg Take 1 [facility] 500 mg 0-21 tablet by [facility] of tablet 00:00: mouth in [place] 00 the Medical morning Branch and 1 tablet in the evening. empaglifloz 2021-08 Yes [id number] 10mg Take 1 [facility] in 0-21 tablet by [facility] of ([place]) 00:00: mouth in [place] 10 mg 00 the Medical morning. Branch ALBUTEROL 2021-08 Yes [id number] INHALE 2 [facility] 90 0-21 PUFFS BY ity of mcg/actuati 00:00: MOUTH [place] on inhaler 00 EVERY 6 Medica l HOURS Branch NEEDED FOR WHEEZING, SHORTNESS OF BREATH OR BRONCHOSPA SMS METFORMIN 2021-08 Yes [id number] TAKE 1 [facility] 850 mg 0-21 TABLET BY [facility] of tablet 00:00: MOUTH [place] 00 THREE Medical TIMES Branch DAILY QUINAPRIL 2021-08 Yes [id number] 40mg TAKE 1 [facility] 40 mg 0-21 TABLET BY [facility] of tablet 00:00: MOUTH [place] 00 EVERY Medical MORNING Branch GLIPIZIDE 2021-08 Yes [id number] 5mg TAKE 1 [facility] XL 5 mg 24 0-21 TABLET BY ity of hr tablet 00:00: MOUTH [place] 00 DAILY WITH Medical BREAKFAST Branch amoxicillin 2021-08 Yes [id number] 500mg Take 1 [facility] 500 mg 0-21 tablet by ity of tablet 00:00: mouth in [place] 00 the Medical morning Branch and 1 tablet in the evening. empaglifloz 2021-08 Yes [id number] 10mg Take 1 [facility] in 0-21 tablet by [facility] of ([place]) 00:00: mouth in [place] 10 mg 00 the Medical morning. Branch ALBUTEROL 2021-08 Yes [id number] INHALE 2 [facility] 90 0-21 PUFFS BY ity of mcg/actuati 00:00: MOUTH [place] on inhaler 00 EVERY 6 Medica l HOURS Branch NEEDED FOR WHEEZING, SHORTNESS OF BREATH OR BRONCHOSPA SMS METFORMIN 2021-08 Yes [id number] TAKE 1 [facility] 850 mg 0-21 TABLET BY [facility] of tablet 00:00: MOUTH [place] 00 THREE Medical TIMES Branch DAILY QUINAPRIL 2021-08 Yes [id number] 40mg TAKE 1 [facility] 40 mg 0-21 TABLET BY [facility] of tablet 00:00: MOUTH [place] 00 EVERY Medical MORNING Branch GLIPIZIDE 2021-08 Yes [id number] 5mg TAKE 1 [facility] XL 5 mg 24 0-21 TABLET BY [facility] of hr tablet 00:00: MOUTH [place] 00 DAILY WITH Medical BREAKFAST Branch amoxicillin 2021-08 Yes [id number] 500mg Take 1 [facility] 500 mg 0-21 tablet by [facility] of tablet 00:00: mouth in [place] 00 the Medical morning Branch and 1 tablet in the evening. empaglifloz 2021-08 Yes [id number] 10mg Take 1 [facility] in 0-21 tablet by [facility] of ([place]) 00:00: mouth in [place] 10 mg 00 the Medical morning. Branch ALBUTEROL 2021-08 Yes [id number] INHALE 2 [facility] 90 0-21 PUFFS BY ity of mcg/actuati 00:00: MOUTH [place] on inhaler 00 EVERY 6 Medica l HOURS Branch NEEDED FOR WHEEZING, SHORTNESS OF BREATH OR BRONCHOSPA [facility] METFORMIN 2021-08 Yes [id number] TAKE 1 [facility] 850 mg 0-21 TABLET BY ity of tablet 00:00: MOUTH [place] 00 THREE Medical TIMES Branch DAILY QUINAPRIL 2021-08 Yes [id number] 40mg TAKE 1 [facility] 40 mg 0-21 TABLET BY ity of tablet 00:00: MOUTH [place] 00 EVERY Medical MORNING Branch GLIPIZIDE 2021-08 Yes [id number] 5mg TAKE 1 [facility] XL 5 mg 24 0-21 TABLET BY ity of hr tablet 00:00: MOUTH [place] 00 DAILY WITH Medical BREAKFAST Branch amoxicillin 2021-08 Yes [id number] 500mg Take 1 [facility] 500 mg 0-21 tablet by [facility] of tablet 00:00: mouth in [place] 00 the Medical morning Branch and 1 tablet in the evening. empaglifloz 2021-08 Yes [id number] 10mg Take 1 [facility] in 0-21 tablet by [facility] of ([place]) 00:00: mouth in [place] 10 mg 00 the Medical morning. Branch ALBUTEROL 2021-08 Yes [id number] INHALE 2 [facility] 90 0-21 PUFFS BY ity of mcg/actuati 00:00: MOUTH [place] on inhaler 00 EVERY 6 Medica l HOURS Branch NEEDED FOR WHEEZING, SHORTNESS OF BREATH OR BRONCHOSPA SMS METFORMIN 2021-08 Yes [id number] TAKE 1 [facility] 850 mg 0-21 TABLET BY [facility]y of tablet 00:00: MOUTH [place] 00 THREE Medical TIMES Branch DAILY QUINAPRIL 2021-08 Yes [id number] 40mg TAKE 1 [facility] 40 mg 0-21 TABLET BY [facility] of tablet 00:00: MOUTH [place] 00 EVERY Medical MORNING Branch GLIPIZIDE 2021-08 Yes [id number] 5mg TAKE 1 [facility] XL 5 mg 24 0-21 TABLET BY ity of hr tablet 00:00: MOUTH [place] 00 DAILY WITH Medical BREAKFAST Branch amoxicillin 2021-08 Yes [id number] 500mg Take 1 [facility] 500 mg 0-21 tablet by [facility] of tablet 00:00: mouth in [place] 00 the Medical morning Branch and 1 tablet in the evening. empaglifloz 2021-08 Yes [id number] 10mg Take 1 [facility] in 0-21 tablet by ity of ([place]) 00:00: mouth in [place] 10 mg 00 the Medical morning. Branch ALBUTEROL 2021-08 Yes [id number] INHALE 2 [facility] 90 0-21 PUFFS BY ity of mcg/actuati 00:00: MOUTH [place] on inhaler 00 EVERY 6 Medica l HOURS Branch NEEDED FOR WHEEZING, SHORTNESS OF BREATH OR BRONCHOSPA SMS METFORMIN 2021-08 Yes [id number] TAKE 1 [facility] 850 mg 0-21 TABLET BY ity of tablet 00:00: MOUTH [place] 00 THREE Medical TIMES Branch DAILY QUINAPRIL 2021-08 Yes [id number] 40mg TAKE 1 [facility] 40 mg 0-21 TABLET BY ity of tablet 00:00: MOUTH [place] 00 EVERY Medical MORNING Branch GLIPIZIDE 2021-08 Yes [id number] 5mg TAKE 1 [facility] XL 5 mg 24 0-21 TABLET BY ity of hr tablet 00:00: MOUTH [place] 00 DAILY WITH Medical BREAKFAST Branch amoxicillin 2021-08 Yes [id number] 500mg Take 1 [facility] 500 mg 0-21 tablet by [facility] of tablet 00:00: mouth in [place] 00 the Medical morning Branch and 1 tablet in the evening. empaglifloz 2021-08 Yes [id number] 10mg Take 1 [facility] in 0-21 tablet by [facility] of ([place]) 00:00: mouth in [place] 10 mg 00 the Medical morning. Branch ALBUTEROL 2021-08 Yes [id number] INHALE 2 [facility] 90 0-21 PUFFS BY ity of mcg/actuati 00:00: MOUTH [place] on inhaler 00 EVERY 6 Medica l HOURS Branch NEEDED FOR WHEEZING, SHORTNESS OF BREATH OR BRONCHOSPA SMS METFORMIN 2021-08 Yes [id number] TAKE 1 [facility] 850 mg 0-21 TABLET BY ity of tablet 00:00: MOUTH [place] 00 THREE Medical TIMES Branch DAILY QUINAPRIL 2021-08 Yes [id number] 40mg TAKE 1 [facility] 40 mg 0-21 TABLET BY [facility] of tablet 00:00: MOUTH [place] 00 EVERY Medical MORNING Branch GLIPIZIDE 2021-08 Yes [id number] 5mg TAKE 1 [facility] XL 5 mg 24 0-21 TABLET BY ity of hr tablet 00:00: MOUTH [place] 00 DAILY WITH Medical BREAKFAST Branch amoxicillin 2021-08 Yes [id number] 500mg Take 1 [facility] 500 mg 0-21 tablet by [facility] of tablet 00:00: mouth in [place] 00 the Medical morning Branch and 1 tablet in the evening. empaglifloz 2021-08 Yes [id number] 10mg Take 1 [facility] in 0-21 tablet by ity of ([place]) 00:00: mouth in [place] 10 mg 00 the Medical morning. Branch ALBUTEROL 2021-08 Yes [id number] INHALE 2 [facility] 90 0-21 PUFFS BY ity of mcg/actuati 00:00: MOUTH [place] on inhaler 00 EVERY 6 Medica l HOURS Branch NEEDED FOR WHEEZING, SHORTNESS OF BREATH OR BRONCHOSPA SMS METFORMIN 2021-08 Yes [id number] TAKE 1 [facility] 850 mg 0-21 TABLET BY ity of tablet 00:00: MOUTH [place] 00 THREE Medical TIMES Branch DAILY QUINAPRIL 2021-08 Yes [id number] 40mg TAKE 1 [facility] 40 mg 0-21 TABLET BY ity of tablet 00:00: MOUTH [place] 00 EVERY Medical MORNING Branch GLIPIZIDE 2021-08 Yes [id number] 5mg TAKE 1 [facility] XL 5 mg 24 0-21 TABLET BY ity of hr tablet 00:00: MOUTH [place] 00 DAILY WITH Medical BREAKFAST Branch amoxicillin 2021-08 Yes [id number] 500mg Take 1 [facility] 500 mg 0-21 tablet by [facility] of tablet 00:00: mouth in [place] 00 the Medical morning Branch and 1 tablet in the evening. empaglifloz 2021-08 Yes [id number] 10mg Take 1 [facility] in 0-21 tablet by [facility] of ([place]) 00:00: mouth in [place] 10 mg 00 the Medical morning. Branch ALBUTEROL 2021-08 Yes [id number] INHALE 2 [facility] 90 0-21 PUFFS BY ity of mcg/actuati 00:00: MOUTH [place] on inhaler 00 EVERY 6 Medica l HOURS Branch NEEDED FOR WHEEZING, SHORTNESS OF BREATH OR BRONCHOSPA SMS METFORMIN 2021-08 Yes [id number] TAKE 1 [facility] 850 mg 0-21 TABLET BY ity of tablet 00:00: MOUTH [place] THREE Medical TIMES Branch DAILY QUINAPRIL 2021-08 Yes [id number] 40mg TAKE 1 [facility] 40 mg 0-21 TABLET BY ity of tablet 00:00: MOUTH [place] 00 EVERY Medical MORNING Branch GLIPIZIDE 2021-08 Yes [id number] 5mg TAKE 1 [facility] XL 5 mg 24 0-21 TABLET BY ity of hr tablet 00:00: MOUTH [place] 00 DAILY WITH Medical BREAKFAST Branch amoxicillin 2021-08 Yes [id number] 500mg Take 1 [facility] 500 mg 0-21 tablet by [facility]y of tablet 00:00: mouth in [place] 00 the Medical morning Branch and 1 tablet in the evening. empaglifloz 2021-08 Yes [id number] 10mg Take 1 [facility] in 0-21 tablet by ity of ([place]) 00:00: mouth in [place] 10 mg 00 the Medical morning. Branch ALBUTEROL 2021-08 Yes [id number] INHALE 2 [facility] 90 0-21 PUFFS BY ity of mcg/actuati 00:00: MOUTH [place] on inhaler 00 EVERY 6 Medica l HOURS Branch NEEDED FOR WHEEZING, SHORTNESS OF BREATH OR BRONCHOSPA SMS METFORMIN 2021-08 Yes [id number] TAKE 1 [facility] 850 mg 0-21 TABLET BY ity of tablet 00:00: MOUTH [place] 00 THREE Medical TIMES Branch DAILY QUINAPRIL 2021-08 Yes [id number] 40mg TAKE 1 [facility] [place] 40 mg 0-21 TABLET BY [facility] of tablet 00:00: MOUTH [place] 00 EVERY Medical MORNING Branch GLIPIZIDE 2021-08 Yes [id number] 5mg TAKE 1 [facility] XL 5 mg 24 0-21 TABLET BY ity of hr tablet 00:00: MOUTH [place] 00 DAILY WITH Medical BREAKFAST Branch amoxicillin 2021-08 Yes [id number] 500mg Take 1 [facility] 500 mg 0-21 tablet by [facility] of tablet 00:00: mouth in [place] 00 the Medical morning Branch and 1 tablet in the evening. empaglifloz 2021-08 Yes [id number] 10mg Take 1 [facility] in 0-21 tablet by [facility]y of ([place]) 00:00: mouth in [place] 10 mg 00 the Medical morning. Branch ALBUTEROL 2021-08 Yes [id number] INHALE 2 [facility] 90 0-21 PUFFS BY ity of mcg/actuati 00:00: MOUTH [place] on inhaler 00 EVERY 6 Medica l HOURS Branch NEEDED FOR WHEEZING, SHORTNESS OF BREATH OR BRONCHOSPA SMS METFORMIN 2021-08 Yes [id number] TAKE 1 [facility] 850 mg 0-21 TABLET BY ity of tablet 00:00: MOUTH [place] 00 THREE Medical TIMES Branch DAILY QUINAPRIL 2021-08 Yes [id number] 40mg TAKE 1 [facility] [place] 40 mg 0-21 TABLET BY ity of tablet 00:00: MOUTH [place] 00 EVERY Medical MORNING Branch GLIPIZIDE 2021-08 Yes [id number] 5mg TAKE 1 [facility] XL 5 mg 24 0-21 TABLET BY ity of hr tablet 00:00: MOUTH [place] 00 DAILY WITH Medical BREAKFAST Branch amoxicillin 2021-08 Yes [id number] 500mg Take 1 [facility] 500 mg 0-21 tablet by [facility] of tablet 00:00: mouth in [place] 00 the Medical morning Branch and 1 tablet in the evening. empaglifloz 2021-08 Yes [id number] 10mg Take 1 [facility] in 0-21 tablet by ity of ([place]) 00:00: mouth in [place] 10 mg 00 the Medical morning. Branch ALBUTEROL 2021-08 Yes [id number] INHALE 2 [facility] 90 0-21 PUFFS BY ity of mcg/actuati 00:00: MOUTH [place] on inhaler 00 EVERY 6 Medica l HOURS Branch NEEDED FOR WHEEZING, SHORTNESS OF BREATH OR BRONCHOSPA SMS METFORMIN 2021-08 Yes [id number] TAKE 1 [facility] 850 mg 0-21 TABLET BY [facility] of tablet 00:00: MOUTH [place] 00 THREE Medical TIMES Branch DAILY QUINAPRIL 2021-08 Yes [id number] 40mg TAKE 1 [facility] 40 mg 0-21 TABLET BY [facility] of tablet 00:00: MOUTH [place] 00 EVERY Medical MORNING Branch GLIPIZIDE 2021-08 Yes [id number] 5mg TAKE 1 [facility] XL 5 mg 24 0-21 TABLET BY ity of hr tablet 00:00: MOUTH [place] 00 DAILY WITH Medical BREAKFAST Branch amoxicillin 2021-08 Yes [id number] 500mg Take 1 [facility] 500 mg 0-21 tablet by [facility] of tablet 00:00: mouth in [place] 00 the Medical morning Branch and 1 tablet in the evening. empaglifloz 2021-08 Yes [id number] 10mg Take 1 [facility] in 0-21 tablet by it[facility] of ([place]) 00:00: mouth in [place] 10 mg 00 the Medical morning. Branch ALBUTEROL 2021-08 Yes [id number] INHALE 2 [facility] 90 0-21 PUFFS BY ity of mcg/actuati 00:00: MOUTH [place] on inhaler 00 EVERY 6 Medica l HOURS Branch NEEDED FOR WHEEZING, SHORTNESS OF BREATH OR BRONCHOSPA SMS METFORMIN 2021-08 Yes [id number] TAKE 1 [facility] 850 mg 0-21 TABLET BY [facility]y of tablet 00:00: MOUTH [place] 00 THREE Medical TIMES Branch DAILY QUINAPRIL 2021-08 Yes [id number] 40mg TAKE 1 [facility] 40 mg 0-21 TABLET BY [facility] of tablet 00:00: MOUTH [place] 00 EVERY Medical MORNING Branch GLIPIZIDE 2021-08 Yes [id number] 5mg TAKE 1 [facility] XL 5 mg 24 0-21 TABLET BY ity of hr tablet 00:00: MOUTH [place] 00 DAILY WITH Medical BREAKFAST Branch amoxicillin 2021-08 Yes [id number] 500mg Take 1 [facility] 500 mg 0-21 tablet by [facility] of tablet 00:00: mouth in [place] 00 the Medical morning Branch and 1 tablet in the evening. empaglifloz 2021-08 Yes [id number] 10mg Take 1 [facility] in 0-21 tablet by [facility] of ([place]) 00:00: mouth in [place] 10 mg 00 the Medical morning. Branch ALBUTEROL 2021-08 Yes [id number] INHALE 2 [facility] 90 0-21 PUFFS BY ity of mcg/actuati 00:00: MOUTH [place] on inhaler 00 EVERY 6 Medica l HOURS Branch NEEDED FOR WHEEZING, SHORTNESS OF BREATH OR BRONCHOSPA SMS METFORMIN 2021-08 Yes [id number] TAKE 1 [facility] 850 mg 0-21 TABLET BY [facility]y of tablet 00:00: MOUTH [place] 00 THREE Medical TIMES Branch DAILY QUINAPRIL 2021-08 Yes [id number] 40mg TAKE 1 [facility] 40 mg 0-21 TABLET BY [facility] of tablet 00:00: MOUTH [place] 00 EVERY Medical MORNING Branch GLIPIZIDE 2021-08 Yes [id number] 5mg TAKE 1 [facility] XL 5 mg 24 0-21 TABLET BY ity of hr tablet 00:00: MOUTH [place] 00 DAILY WITH Medical BREAKFAST Branch amoxicillin 2021-08 Yes [id number] 500mg Take 1 [facility] 500 mg 0-21 tablet by [facility] of tablet 00:00: mouth in [place] 00 the Medical morning Branch and 1 tablet in the evening. empaglifloz 2021-08 Yes [id number] 10mg Take 1 [facility] in 0-21 tablet by [facility] of ([place]) 00:00: mouth in [place] 10 mg 00 the Medical morning. Branch ALBUTEROL 2021-08 Yes [id number] INHALE 2 [facility] 90 0-21 PUFFS BY ity of mcg/actuati 00:00: MOUTH [place] on inhaler 00 EVERY 6 Medica l HOURS Branch NEEDED FOR WHEEZING, SHORTNESS OF BREATH OR BRONCHOSPA SMS METFORMIN 2021-08 Yes [id number] TAKE 1 [facility] 850 mg 0-21 TABLET BY ity of tablet 00:00: MOUTH [place] 00 THREE Medical TIMES Branch DAILY QUINAPRIL 2021-08 Yes [id number] 40mg TAKE 1 [facility] 40 mg 0-21 TABLET BY ity of tablet 00:00: MOUTH [place] 00 EVERY Medical MORNING Branch GLIPIZIDE 2021-08 Yes [id number] 5mg TAKE 1 [facility] XL 5 mg 24 0-21 TABLET BY ity of hr tablet 00:00: MOUTH [place] 00 DAILY WITH Medical BREAKFAST Branch amoxicillin 2021-08 Yes [id number] 500mg Take 1 [facility] 500 mg 0-21 tablet by [facility] of tablet 00:00: mouth in [place] 00 the Medical morning Branch and 1 tablet in the evening. empaglifloz 2021-08 Yes [id number] 10mg Take 1 [facility] in 0-21 tablet by [facility] of ([place]) 00:00: mouth in [place] 10 mg 00 the Medical morning. Branch ALBUTEROL 2021-08 Yes [id number] INHALE 2 [facility] 90 0-21 PUFFS BY ity of mcg/actuati 00:00: MOUTH [place] on inhaler 00 EVERY 6 Medica l HOURS Branch NEEDED FOR WHEEZING, SHORTNESS OF BREATH OR BRONCHOSPA SMS METFORMIN 2021-08 Yes [id number] TAKE 1 [facility] 850 mg 0-21 TABLET BY ity of tablet 00:00: MOUTH [place] 00 THREE Medical TIMES Branch DAILY GLIPIZIDE 2021-08 Yes [id number] 5mg TAKE 1 [facility] XL 5 mg 24 0-21 TABLET BY ity of hr tablet 00:00: MOUTH [place] 00 DAILY WITH Medical BREAKFAST Branch amoxicillin 2021-08 Yes [id number] 500mg Take 1 [facility] 500 mg 0-21 tablet by [facility] of tablet 00:00: mouth in [place] the Medical morning Branch and 1 tablet in the evening. empaglifloz 2021-08 Yes [id number] 10mg Take 1 [facility] in 0-21 tablet by [facility] of ([place]) 00:00: mouth in [place] 10 mg 00 the Medical morning. Branch ALBUTEROL 2021-08 Yes [id number] INHALE 2 [facility] 90 0-21 PUFFS BY ity of mcg/actuati 00:00: MOUTH [place] on inhaler 00 EVERY 6 Medica l HOURS Branch NEEDED FOR WHEEZING, SHORTNESS OF BREATH OR BRONCHOSPA SMS METFORMIN 2021-08 Yes [id number] TAKE 1 [facility] 850 mg 0-21 TABLET BY ity of tablet 00:00: MOUTH [place] 00 THREE Medical TIMES Branch DAILY GLIPIZIDE 2021-08 Yes [id number] 5mg TAKE 1 [facility] XL 5 mg 24 0-21 TABLET BY ity of hr tablet 00:00: MOUTH [place] 00 DAILY WITH Medical BREAKFAST Branch amoxicillin 2021-08 Yes [id number] 500mg Take 1 [facility] 500 mg 0-21 tablet by [facility] of tablet 00:00: mouth in [place] 00 the Medical morning Branch and 1 tablet in the evening. empaglifloz 2021-08 Yes [id number] 10mg Take 1 [facility] in 0-21 tablet by [facility] of ([place]) 00:00: mouth in [place] 10 mg 00 the Medical morning. Branch ALBUTEROL 2021-08 Yes [id number] INHALE 2 [facility] 90 0-21 PUFFS BY ity of mcg/actuati 00:00: MOUTH [place] on inhaler 00 EVERY 6 Medica l HOURS Branch NEEDED FOR WHEEZING, SHORTNESS OF BREATH OR BRONCHOSPA SMS METFORMIN 2021-08 Yes [id number] TAKE 1 [facility] 850 mg 0-21 TABLET BY [facility] tablet 00:00: MOUTH [place] 00 THREE Medical TIMES Branch DAILY GLIPIZIDE 2021-08 Yes [id number] 5mg TAKE 1 [facility] XL 5 mg 24 0-21 TABLET BY [facility] hr tablet 00:00: MOUTH [place] 00 DAILY WITH Medical BREAKFAST Branch amoxicillin 2021-08 Yes [id number] 500mg Take 1 [facility] 500 mg 0-21 tablet by [facility] tablet 00:00: mouth in [place] 00 the Medical morning Branch and 1 tablet in the evening. empaglifloz 2021-08 Yes [id number] 10mg Take 1 [facility] in 0-21 tablet by [facility] ([place]) 00:00: mouth in [place] 10 mg 00 the Medical morning. Branch ALBUTEROL 2021-08 Yes [id number] INHALE 2 [facility] 90 0-21 PUFFS BY [facility] of mcg/actuati 00:00: MOUTH [place] on inhaler 00 EVERY 6 Medica l HOURS Branch NEEDED FOR WHEEZING, SHORTNESS OF BREATH OR BRONCHOSPA SMS METFORMIN 2021-08 Yes [id number] TAKE 1 [facility] 850 mg 0-21 TABLET BY [facility] tablet 00:00: MOUTH [place] 00 THREE Medical TIMES Branch DAILY GLIPIZIDE 2021-08 Yes [id number] 5mg TAKE 1 [facility] XL 5 mg 24 0-21 TABLET BY [facility] hr tablet 00:00: MOUTH [place] 00 DAILY WITH Medical BREAKFAST Branch amoxicillin 2021-08 Yes [id number] 500mg Take 1 [facility] 500 mg 0-21 tablet by [facility] tablet 00:00: mouth in [place] 00 the Medical morning Branch and 1 tablet in the evening. empaglifloz 2021-08 Yes [id number] 10mg Take 1 [facility] in 0-21 tablet by [facility] ([place]) 00:00: mouth in [place] 10 mg 00 the Medical morning. Branch ALBUTEROL 2021-08 Yes [id number] INHALE 2 [facility] 90 0-21 PUFFS BY [facility] of mcg/actuati 00:00: MOUTH [place] on inhaler 00 EVERY 6 Medica l HOURS Branch NEEDED FOR WHEEZING, SHORTNESS OF BREATH OR BRONCHOSPA SMS METFORMIN 2021-08 Yes [id number] TAKE 1 [facility] 850 mg 0-21 TABLET BY [facility] tablet 00:00: MOUTH [place] 00 THREE Medical TIMES Branch DAILY GLIPIZIDE 2021-08 Yes [id number] 5mg TAKE 1 [facility] XL 5 mg 24 0-21 TABLET BY [facility] hr tablet 00:00: MOUTH [place] 00 DAILY WITH Medical BREAKFAST Branch amoxicillin 2021-08 Yes [id number] 500mg Take 1 [facility] 500 mg 0-21 tablet by [facility] tablet 00:00: mouth in [place] 00 the Medical morning Branch and 1 tablet in the evening. empaglifloz 2021-08 Yes [id number] 10mg Take 1 [facility] in 0-21 tablet by [facility] ([place]) 00:00: mouth in [place] 10 mg 00 the Medical morning. Branch ALBUTEROL 2021-08 Yes [id number] INHALE 2 [facility] 90 0-21 PUFFS BY [facility] of mcg/actuati 00:00: MOUTH [place] on inhaler 00 EVERY 6 Medica l HOURS Branch NEEDED FOR WHEEZING, SHORTNESS OF BREATH OR BRONCHOSPA SMS METFORMIN 2021-08 Yes [id number] TAKE 1 [facility] 850 mg 0-21 TABLET BY [facility] tablet 00:00: MOUTH [place] 00 THREE Medical TIMES Branch DAILY GLIPIZIDE 2021-08 Yes [id number] 5mg TAKE 1 [facility] XL 5 mg 24 0-21 TABLET BY [facility] hr tablet 00:00: MOUTH [place] 00 DAILY WITH Medical BREAKFAST Branch amoxicillin 2021-08 Yes [id number] 500mg Take 1 [facility] 500 mg 0-21 tablet by [facility] tablet 00:00: mouth in [place] 00 the Medical morning Branch and 1 tablet in the evening. empaglifloz 2021-08 Yes [id number] 10mg Take 1 [facility] in 0-21 tablet by [facility] ([place]) 00:00: mouth in [place] 10 mg 00 the Medical morning. Branch ALBUTEROL 2021-08 Yes [id number] INHALE 2 [facility] 90 0-21 PUFFS BY [facility] of mcg/actuati 00:00: MOUTH [place] on inhaler 00 EVERY 6 Medica l HOURS Branch NEEDED FOR WHEEZING, SHORTNESS OF BREATH OR BRONCHOSPA SMS METFORMIN 2021-08 Yes [id number] TAKE 1 [facility] 850 mg 0-21 TABLET BY [facility] tablet 00:00: MOUTH [place] 00 THREE Medical TIMES Branch DAILY GLIPIZIDE 2021-08 Yes [id number] 5mg TAKE 1 [facility] XL 5 mg 24 0-21 TABLET BY [facility] hr tablet 00:00: MOUTH [place] 00 DAILY WITH Medical BREAKFAST Branch amoxicillin 2021-08 Yes [id number] 500mg Take 1 [facility] 500 mg 0-21 tablet by [facility] tablet 00:00: mouth in [place] 00 the Medical morning Branch and 1 tablet in the evening. empaglifloz 2021-08 Yes [id number] 10mg Take 1 [facility] in 0-21 tablet by [facility] ([place]) 00:00: mouth in [place] 10 mg 00 the Medical morning. Branch ALBUTEROL 2021-08 Yes [id number] INHALE 2 [facility] 90 0-21 PUFFS BY [facility] of mcg/actuati 00:00: MOUTH [place] on inhaler 00 EVERY 6 Medica l HOURS Branch NEEDED FOR WHEEZING, SHORTNESS OF BREATH OR BRONCHOSPA SMS METFORMIN 2021-08 Yes [id number] TAKE 1 [facility] 850 mg 0-21 TABLET BY [facility] tablet 00:00: MOUTH [place] THREE Medical TIMES Branch DAILY GLIPIZIDE 2021-08 Yes [id number] 5mg TAKE 1 [facility] XL 5 mg 24 0-21 TABLET BY [facility] hr tablet 00:00: MOUTH [place] 00 DAILY WITH Medical BREAKFAST Branch amoxicillin 2021-08 Yes [id number] 500mg Take 1 [facility] 500 mg 0-21 tablet by [facility] tablet 00:00: mouth in [place] 00 the Medical morning Branch and 1 tablet in the evening. empaglifloz 2021-08 Yes [id number] 10mg Take 1 [facility] in 0-21 tablet by [facility] ([place]) 00:00: mouth in [place] 10 mg 00 the Medical morning. Branch ALBUTEROL 2021-08 Yes [id number] INHALE 2 [facility] 90 0-21 PUFFS BY [facility] of mcg/actuati 00:00: MOUTH [place] on inhaler 00 EVERY 6 Medica l HOURS Branch NEEDED FOR WHEEZING, SHORTNESS OF BREATH OR BRONCHOSPA SMS METFORMIN 2021-08 Yes [id number] TAKE 1 [facility] 850 mg 0-21 TABLET BY [facility] tablet 00:00: MOUTH [place] 00 THREE Medical TIMES Branch DAILY GLIPIZIDE 2021-08 Yes [id number] 5mg TAKE 1 [facility] XL 5 mg 24 0-21 TABLET BY [facility] hr tablet 00:00: MOUTH [place] 00 DAILY WITH Medical BREAKFAST Branch amoxicillin 2021-08 Yes [id number] 500mg Take 1 [facility] 500 mg 0-21 tablet by [facility] tablet 00:00: mouth in [place] 00 the Medical morning Branch and 1 tablet in the evening. empaglifloz 2021-08 Yes [id number] 10mg Take 1 [facility] in 0-21 tablet by [facility] ([place]) 00:00: mouth in [place] 10 mg 00 the Medical morning. Branch ALBUTEROL 2021-08 Yes [id number] INHALE 2 [facility] 90 0-21 PUFFS BY [facility] of mcg/actuati 00:00: MOUTH [place] on inhaler 00 EVERY 6 Medica l HOURS Branch NEEDED FOR WHEEZING, SHORTNESS OF BREATH OR BRONCHOSPA SMS METFORMIN 2021-08 Yes [id number] TAKE 1 [facility] 850 mg 0-21 TABLET BY [facility] tablet 00:00: MOUTH [place] 00 THREE Medical TIMES Branch DAILY GLIPIZIDE 2021-08 Yes [id number] 5mg TAKE 1 [facility] XL 5 mg 24 0-21 TABLET BY [facility] hr tablet 00:00: MOUTH [place] 00 DAILY WITH Medical BREAKFAST Branch amoxicillin 2021-08 Yes [id number] 500mg Take 1 [facility] 500 mg 0-21 tablet by [facility] tablet 00:00: mouth in [place] 00 the Medical morning Branch and 1 tablet in the evening. empaglifloz 2021-08 Yes [id number] 10mg Take 1 [facility] in 0-21 tablet by [facility] ([place]) 00:00: mouth in [place] 10 mg 00 the Medical morning. Branch ALBUTEROL 2021-08 Yes [id number] INHALE 2 [facility] 90 0-21 PUFFS BY [facility] of mcg/actuati 00:00: MOUTH [place] on inhaler 00 EVERY 6 Medica l HOURS Branch NEEDED FOR WHEEZING, SHORTNESS OF BREATH OR BRONCHOSPA SMS METFORMIN 2021-08 Yes [id number] TAKE 1 [facility] 850 mg 0-21 TABLET BY [facility] tablet 00:00: MOUTH [place] 00 THREE Medical TIMES Branch DAILY GLIPIZIDE 2021-08 Yes [id number] 5mg TAKE 1 [facility] XL 5 mg 24 0-21 TABLET BY [facility] hr tablet 00:00: MOUTH [place] 00 DAILY WITH Medical BREAKFAST Branch amoxicillin 2021-08 Yes [id number] 500mg Take 1 [facility] 500 mg 0-21 tablet by [facility] tablet 00:00: mouth in [place] 00 the Medical morning Branch and 1 tablet in the evening. empaglifloz 2021-08 Yes [id number] 10mg Take 1 [facility] in 0-21 tablet by [facility] ([place]) 00:00: mouth in [place] 10 mg 00 the Medical morning. Branch ALBUTEROL 2021-08 Yes [id number] INHALE 2 [facility] 90 0-21 PUFFS BY [facility] of mcg/actuati 00:00: MOUTH [place] on inhaler 00 EVERY 6 Medica l HOURS Branch NEEDED FOR WHEEZING, SHORTNESS OF BREATH OR BRONCHOSPA SMS METFORMIN 2021-08 Yes [id number] TAKE 1 [facility] 850 mg 0-21 TABLET BY [facility] tablet 00:00: MOUTH [place] 00 THREE Medical TIMES Branch DAILY GLIPIZIDE 2021-08 Yes [id number] 5mg TAKE 1 [facility] XL 5 mg 24 0-21 TABLET BY [facility] hr tablet 00:00: MOUTH [place] 00 DAILY WITH Medical BREAKFAST Branch amoxicillin 2021-08 Yes [id number] 500mg Take 1 [facility] 500 mg 0-21 tablet by [facility] tablet 00:00: mouth in [place] 00 the Medical morning Branch and 1 tablet in the evening. empaglifloz 2021-08 Yes [id number] 10mg Take 1 [facility] in 0-21 tablet by [facility] ([place]) 00:00: mouth in [place] 10 mg 00 the Medical morning. Branch ALBUTEROL 2021-08 Yes [id number] INHALE 2 [facility] 90 0-21 PUFFS BY [facility] of mcg/actuati 00:00: MOUTH [place] on inhaler 00 EVERY 6 Medica l HOURS Branch NEEDED FOR WHEEZING, SHORTNESS OF BREATH OR BRONCHOSPA SMS METFORMIN 2021-08 Yes [id number] TAKE 1 [facility] 850 mg 0-21 TABLET BY [facility] of tablet 00:00: MOUTH [place] 00 THREE Medical TIMES Branch DAILY GLIPIZIDE 2021-08 Yes [id number] 5mg TAKE 1 [facility] XL 5 mg 24 0-21 TABLET BY [facility] of hr tablet 00:00: MOUTH [place] 00 DAILY WITH Medical BREAKFAST Branch amoxicillin 2021-08 Yes [id number] 500mg Take 1 [facility] 500 mg 0-21 tablet by [facility] of tablet 00:00: mouth in [place] 00 the Medical morning Branch and 1 tablet in the evening. empaglifloz 2021-08 Yes [id number] 10mg Take 1 [facility] in 0-21 tablet by [facility] of ([place]) 00:00: mouth in [place] 10 mg 00 the Medical morning. Branch ALBUTEROL 2021-08 Yes [id number] INHALE 2 [facility] 90 0-21 PUFFS BY [facility] of mcg/actuati 00:00: MOUTH [place] on inhaler 00 EVERY 6 Medica l HOURS Branch NEEDED FOR WHEEZING, SHORTNESS OF BREATH OR BRONCHOSPA SMS METFORMIN 2021-08 Yes [id number] TAKE 1 [facility] 850 mg 0-21 TABLET BY [facility] of tablet 00:00: MOUTH [place] THREE Medical TIMES Branch DAILY GLIPIZIDE 2021-08 Yes [id number] 5mg TAKE 1 [facility] XL 5 mg 24 0-21 TABLET BY [facility] of hr tablet 00:00: MOUTH [place] 00 DAILY WITH Medical BREAKFAST Branch amoxicillin 2021-08 Yes [id number] 500mg Take 1 [facility] 500 mg 0-21 tablet by [facility] of tablet 00:00: mouth in [place] 00 the Medical morning Branch and 1 tablet in the evening. empaglifloz 2021-08 Yes [id number] 10mg Take 1 [facility] in 0-21 tablet by [facility] of ([place]) 00:00: mouth in [place] 10 mg 00 the Medical morning. Branch ALBUTEROL 2021-08 Yes [id number] INHALE 2 [facility] 90 0-21 PUFFS BY [facility] of mcg/actuati 00:00: MOUTH [place] on inhaler 00 EVERY 6 Medica l HOURS Branch NEEDED FOR WHEEZING, SHORTNESS OF BREATH OR BRONCHOSPA SMS METFORMIN 2021-08 Yes [id number] TAKE 1 [facility] 850 mg 0-21 TABLET BY [facility] of tablet 00:00: MOUTH [place] THREE Medical TIMES Branch DAILY GLIPIZIDE 2021-08 Yes [id number] 5mg TAKE 1 [facility] XL 5 mg 24 0-21 TABLET BY [facility] of hr tablet 00:00: MOUTH [place] 00 DAILY WITH Medical BREAKFAST Branch amoxicillin 2021-08 Yes [id number] 500mg Take 1 [facility] 500 mg 0-21 tablet by [facility] of tablet 00:00: mouth in [place] 00 the Medical morning Branch and 1 tablet in the evening. empaglifloz 2021-08 Yes [id number] 10mg Take 1 [facility] in 0-21 tablet by [facility] of ([place]) 00:00: mouth in [place] 10 mg 00 the Medical morning. Branch ALBUTEROL 2021-08 Yes [id number] INHALE 2 [facility] 90 0-21 PUFFS BY [facility] of mcg/actuati 00:00: MOUTH [place] on inhaler 00 EVERY 6 Medica l HOURS Branch NEEDED FOR WHEEZING, SHORTNESS OF BREATH OR BRONCHOSPA SMS METFORMIN 2021-08 Yes [id number] TAKE 1 [facility] 850 mg 0-21 TABLET BY [facility] of tablet 00:00: MOUTH [place] THREE Medical TIMES Branch DAILY GLIPIZIDE 2021-08 Yes [id number] 5mg TAKE 1 [facility] XL 5 mg 24 0-21 TABLET BY [facility] of hr tablet 00:00: MOUTH [place] 00 DAILY WITH Medical BREAKFAST Branch amoxicillin 2021-08 Yes [id number] 500mg Take 1 [facility] 500 mg 0-21 tablet by [facility] of tablet 00:00: mouth in [place] 00 the Medical morning Branch and 1 tablet in the evening. empaglifloz 2021-08 Yes [id number] 10mg Take 1 [facility] in 0-21 tablet by [facility] of ([place]) 00:00: mouth in [place] 10 mg 00 the Medical morning. Branch ALBUTEROL 2021-08 Yes [id number] INHALE 2 [facility] 90 0-21 PUFFS BY [facility] of mcg/actuati 00:00: MOUTH [place] on inhaler 00 EVERY 6 Medica l HOURS Branch NEEDED FOR WHEEZING, SHORTNESS OF BREATH OR BRONCHOSPA SMS METFORMIN 2021-08 Yes [id number] TAKE 1 [facility] 850 mg 0-21 TABLET BY [facility] of tablet 00:00: MOUTH [place] THREE Medical TIMES Branch DAILY GLIPIZIDE 2021-08 Yes [id number] 5mg TAKE 1 [facility] XL 5 mg 24 0-21 TABLET BY [facility] hr tablet 00:00: MOUTH [place] 00 DAILY WITH Medical BREAKFAST Branch amoxicillin 2021-08 Yes [id number] 500mg Take 1 [facility] 500 mg 0-21 tablet by [facility] of tablet 00:00: mouth in [place] 00 the Medical morning Branch and 1 tablet in the evening. empaglifloz 2021-08 Yes [id number] 10mg Take 1 [facility] in 0-21 tablet by [facility] of ([place]) 00:00: mouth in [place] 10 mg 00 the Medical morning. Branch ALBUTEROL 2021-08 Yes [id number] INHALE 2 [facility] 90 0-21 PUFFS BY [facility] of mcg/actuati 00:00: MOUTH [place] on inhaler 00 EVERY 6 Medica l HOURS Branch NEEDED FOR WHEEZING, SHORTNESS OF BREATH OR BRONCHOSPA SMS METFORMIN 2021-08 Yes [id number] TAKE 1 [facility] 850 mg 0-21 TABLET BY [facility] of tablet 00:00: MOUTH [place] 00 THREE Medical TIMES Branch DAILY GLIPIZIDE 2021-08 Yes [id number] 5mg TAKE 1 [facility] XL 5 mg 24 0-21 TABLET BY [facility] of hr tablet 00:00: MOUTH [place] 00 DAILY WITH Medical BREAKFAST Branch amoxicillin 2021-08 Yes [id number] 500mg Take 1 [facility] 500 mg 0-21 tablet by [facility] of tablet 00:00: mouth in [place] 00 the Medical morning Branch and 1 tablet in the evening. empaglifloz 2021-08 Yes [id number] 10mg Take 1 [facility] in 0-21 tablet by [facility] of ([place]) 00:00: mouth in [place] 10 mg 00 the Medical morning. Branch ALBUTEROL 2021-08 Yes [id number] INHALE 2 [facility] 90 0-21 PUFFS BY [facility] of mcg/actuati 00:00: MOUTH [place] on inhaler 00 EVERY 6 Medica l HOURS Branch NEEDED FOR WHEEZING, SHORTNESS OF BREATH OR BRONCHOSPA SMS METFORMIN 2021-08 Yes [id number] TAKE 1 [facility] 850 mg 0-21 TABLET BY [facility] of tablet 00:00: MOUTH [place] 00 THREE Medical TIMES Branch DAILY GLIPIZIDE 2021-08 Yes [id number] 5mg TAKE 1 [facility] XL 5 mg 24 0-21 TABLET BY [facility] hr tablet 00:00: MOUTH [place] 00 DAILY WITH Medical BREAKFAST Branch amoxicillin 2021-08 Yes [id number] 500mg Take 1 [facility] 500 mg 0-21 tablet by [facility] of tablet 00:00: mouth in [place] 00 the Medical morning Branch and 1 tablet in the evening. empaglifloz 2021-08 Yes [id number] 10mg Take 1 [facility] in 0-21 tablet by [facility] of ([place]) 00:00: mouth in [place] 10 mg 00 the Medical morning. Branch ALBUTEROL 2021-08 Yes [id number] INHALE 2 [facility] 90 0-21 PUFFS BY [facility] of mcg/actuati 00:00: MOUTH [place] on inhaler 00 EVERY 6 Medica l HOURS Branch NEEDED FOR WHEEZING, SHORTNESS OF BREATH OR BRONCHOSPA SMS METFORMIN 2021-08 Yes [id number] TAKE 1 [facility] 850 mg 0-21 TABLET BY [facility] of tablet 00:00: MOUTH [place] 00 THREE Medical TIMES Branch DAILY GLIPIZIDE 2021-08 Yes [id number] 5mg TAKE 1 [facility] XL 5 mg 24 0-21 TABLET BY [facility] hr tablet 00:00: MOUTH [place] 00 DAILY WITH Medical BREAKFAST Branch amoxicillin 2021-08 Yes [id number] 500mg Take 1 [facility] 500 mg 0-21 tablet by [facility] of tablet 00:00: mouth in [place] 00 the Medical morning Branch and 1 tablet in the evening. empaglifloz 2021-08 Yes [id number] 10mg Take 1 [facility] in 0-21 tablet by [facility] of ([place]) 00:00: mouth in [place] 10 mg 00 the Medical morning. Branch ALBUTEROL 2021-08 Yes [id number] INHALE 2 [facility] 90 0-21 PUFFS BY [facility] of mcg/actuati 00:00: MOUTH [place] on inhaler 00 EVERY 6 Medica l HOURS Branch NEEDED FOR WHEEZING, SHORTNESS OF BREATH OR BRONCHOSPA SMS METFORMIN 2021-08 Yes [id number] TAKE 1 [facility] 850 mg 0-21 TABLET BY [facility] of tablet 00:00: MOUTH [place] 00 THREE Medical TIMES Branch DAILY GLIPIZIDE 2021-08 Yes [id number] 5mg TAKE 1 [facility] XL 5 mg 24 0-21 TABLET BY [facility] of hr tablet 00:00: MOUTH [place] 00 DAILY WITH Medical BREAKFAST Branch amoxicillin 2021-08 Yes [id number] 500mg Take 1 [facility] 500 mg 0-21 tablet by [facility] of tablet 00:00: mouth in [place] 00 the Medical morning Branch and 1 tablet in the evening. empaglifloz 2021-08 Yes [id number] 10mg Take 1 [facility] in 0-21 tablet by [facility] of ([place]) 00:00: mouth in [place] 10 mg 00 the Medical morning. Branch ALBUTEROL 2021-08 Yes [id number] INHALE 2 [facility] 90 0-21 PUFFS BY [facility] of mcg/actuati 00:00: MOUTH [place] on inhaler 00 EVERY 6 Medica l HOURS Branch NEEDED FOR WHEEZING, SHORTNESS OF BREATH OR BRONCHOSPA SMS METFORMIN 2021-08 Yes [id number] TAKE 1 [facility] 850 mg 0-21 TABLET BY [facility] tablet 00:00: MOUTH [place] 00 THREE Medical TIMES Branch DAILY GLIPIZIDE 2021-08 Yes [id number] 5mg TAKE 1 [facility] XL 5 mg 24 0-21 TABLET BY [facility] of hr tablet 00:00: MOUTH [place] 00 DAILY WITH Medical BREAKFAST Branch amoxicillin 2021-08 Yes [id number] 500mg Take 1 [facility] 500 mg 0-21 tablet by [facility] of tablet 00:00: mouth in [place] the Medical morning Branch and 1 tablet in the evening. empaglifloz 2021-08 Yes [id number] 10mg Take 1 [facility] in 0-21 tablet by [facility] of ([place]) 00:00: mouth in [place] 10 mg 00 the Medical morning. Branch ALBUTEROL 2021-08 Yes [id number] INHALE 2 [facility] 90 0-21 PUFFS BY [facility] of mcg/actuati 00:00: MOUTH [place] on inhaler 00 EVERY 6 Medica l HOURS Branch NEEDED FOR WHEEZING, SHORTNESS OF BREATH OR BRONCHOSPA SMS METFORMIN 2021-08 Yes [id number] TAKE 1 [facility] 850 mg 0-21 TABLET BY [facility] of tablet 00:00: MOUTH [place] 00 THREE Medical TIMES Branch DAILY GLIPIZIDE 2021-08 Yes [id number] 5mg TAKE 1 [facility] XL 5 mg 24 0-21 TABLET BY [facility] of hr tablet 00:00: MOUTH [place] 00 DAILY WITH Medical BREAKFAST Branch amoxicillin 2021-08 Yes [id number] 500mg Take 1 [facility] 500 mg 0-21 tablet by [facility] of tablet 00:00: mouth in [place] 00 the Medical morning Branch and 1 tablet in the evening. empaglifloz 2021-08 Yes [id number] 10mg Take 1 [facility] in 0-21 tablet by [facility] of ([place]) 00:00: mouth in [place] 10 mg 00 the Medical morning. Branch ALBUTEROL 2021-08 Yes [id number] INHALE 2 [facility] 90 0-21 PUFFS BY [facility] of mcg/actuati 00:00: MOUTH [place] on inhaler 00 EVERY 6 Medica l HOURS Branch NEEDED FOR WHEEZING, SHORTNESS OF BREATH OR BRONCHOSPA SMS METFORMIN 2021-08 Yes [id number] TAKE 1 [facility] 850 mg 0-21 TABLET BY [facility] of tablet 00:00: MOUTH [place] 00 THREE Medical TIMES Branch DAILY GLIPIZIDE 2021-08 Yes [id number] 5mg TAKE 1 [facility] XL 5 mg 24 0-21 TABLET BY [facility] of hr tablet 00:00: MOUTH [place] 00 DAILY WITH Medical BREAKFAST Branch amoxicillin 2021-08 Yes [id number] 500mg Take 1 [facility] 500 mg 0-21 tablet by [facility] tablet 00:00: mouth in [place] 00 the Medical morning Branch and 1 tablet in the evening. empaglifloz 2021-08 Yes [id number] 10mg Take 1 [facility] in 0-21 tablet by [facility] ([place]) 00:00: mouth in [place] 10 mg 00 the Medical morning. Branch QUINAPRIL 2021-08- No [id number] 40mg TAKE 1 [facility] 40 mg 0-21 12-07 TABLET BY [facility] tablet 00:00: 00:00 MOUTH [place] 00 :00 EVERY Medical MORNING Branch QUINAPRIL 2021-08- No [id number] 40mg TAKE 1 [facility] 40 mg [...] Indication s: chronic pain gabapentin 2021-0 Yes [id number] TAKE 1 [facility] 300 mg 9-27 CAPSULE BY [facility] capsule 00:00: MOUTH [place] 00 TIMES Medical DAILY Branch gabapentin 2021-0 Yes [id number] TAKE 1 [facility] 300 mg 9-27 CAPSULE BY [facility] of capsule 00:00: MOUTH [place] 00 TIMES Medical DAILY Branch gabapentin 2021-0 Yes [id number] TAKE 1 [facility] 300 mg 9-27 CAPSULE BY [facility] of capsule 00:00: MOUTH [place] 00 TIMES Medical DAILY Branch gabapentin 2021-0 Yes [id number] TAKE 1 [facility] 300 mg 9-27 CAPSULE BY [facility] of capsule 00:00: MOUTH [place] 00 TIMES Medical DAILY Branch gabapentin 2-0 Yes [id number] TAKE 1 [facility] 300 mg 9-27 CAPSULE BY [facility] of capsule 00:00: MOUTH [place] 00 TIMES Medical DAILY Branch gabapentin 2-0 Yes [id number] TAKE 1 [facility] 300 mg 9-27 CAPSULE BY [facility] of capsule 00:00: MOUTH [place] 00 TIMES Medical DAILY Branch gabapentin 2021-0 Yes [id number] TAKE 1 [facility] 300 mg 9-27 CAPSULE BY [facility] of capsule 00:00: MOUTH [place] 00 TIMES Medical DAILY Branch gabapentin 2022-0 Yes [id number] TAKE 1 [facility] 300 mg 9-27 CAPSULE BY [facility] of capsule 00:00: MOUTH [place] 00 TIMES Medical DAILY Branch gabapentin 2022-0 Yes [id number] TAKE 1 [facility] 300 mg 9-27 CAPSULE BY [facility] of capsule 00:00: MOUTH [place] 00 TIMES Medical DAILY Branch gabapentin 2022-0 Yes [id number] TAKE 1 [facility] 300 mg 9-27 CAPSULE BY [facility] of capsule 00:00: MOUTH [place] 00 TIMES Medical DAILY Branch gabapentin 2022-0 Yes [id number] TAKE 1 [facility] 300 mg 9-27 CAPSULE BY [facility] of capsule 00:00: MOUTH [place] 00 TIMES Medical DAILY Branch gabapentin 2022-0 Yes [id number] TAKE 1 [facility] 300 mg 9-27 CAPSULE BY [facility] of capsule 00:00: MOUTH [place] 00 TIMES Medical DAILY Branch gabapentin 2022-0 Yes [id number] TAKE 1 [facility] 300 mg 9-27 CAPSULE BY [facility] of capsule 00:00: MOUTH [place] 00 TIMES Medical DAILY Branch gabapentin 2022-0 Yes [id number] TAKE 1 [facility] 300 mg 9-27 CAPSULE BY [facility] of capsule 00:00: MOUTH [place] 00 TIMES Medical DAILY Branch gabapentin 2022-0 Yes [id number] TAKE 1 [facility] 300 mg 9-27 CAPSULE BY [facility] of capsule 00:00: MOUTH [place] 00 TIMES Medical DAILY Branch gabapentin 2022-0 Yes [id number] TAKE 1 [facility] 300 mg 9-27 CAPSULE BY [facility] of capsule 00:00: MOUTH [place] 00 TIMES Medical DAILY Branch gabapentin 2022-0 Yes [id number] TAKE 1 [facility] 300 mg 9-27 CAPSULE BY [facility] of capsule 00:00: MOUTH [place] 00 TIMES Medical DAILY Branch gabapentin 2022-0 Yes [id number] TAKE 1 [facility] 300 mg 9-27 CAPSULE BY [facility] of capsule 00:00: MOUTH [place] 00 TIMES Medical DAILY Branch gabapentin 2022-0 Yes [id number] TAKE 1 [facility] 300 mg 9-27 CAPSULE BY [facility] of capsule 00:00: MOUTH [place] 00 TIMES Medical DAILY Branch gabapentin 2022-0 Yes [id number] TAKE 1 [facility] 300 mg 9-27 CAPSULE BY [facility] of capsule 00:00: MOUTH [place] 00 TIMES Medical DAILY Branch gabapentin 2022-0 Yes [id number] TAKE 1 [facility] 300 mg 9-27 CAPSULE BY ity of capsule 00:00: MOUTH [place] 00 TIMES Medical DAILY Branch gabapentin 2022-0 Yes [id number] TAKE 1 [facility] 300 mg 9-27 CAPSULE BY ity of capsule 00:00: MOUTH [place] 00 TIMES Medical DAILY Branch gabapentin 2022-0 Yes [id number] TAKE 1 [facility] 300 mg 9-27 CAPSULE BY it[facility] of capsule 00:00: MOUTH [place] 00 TIMES Medical DAILY Branch gabapentin 2022-0 Yes [id number] TAKE 1 [facility] 300 mg 9-27 CAPSULE BY [facility] of capsule 00:00: MOUTH [place] 00 TIMES Medical DAILY Branch gabapentin 2022-0 Yes [id number] TAKE 1 [facility] 300 mg 9-27 CAPSULE BY ity of capsule 00:00: MOUTH [place] 00 TIMES Medical DAILY Branch gabapentin 2022-0 Yes [id number] TAKE 1 [facility] 300 mg 9-27 CAPSULE BY it[facility] of capsule 00:00: MOUTH [place] 00 TIMES Medical DAILY Branch gabapentin 2022-0 Yes [id number] TAKE 1 [facility] 300 mg 9-27 CAPSULE BY ity of capsule 00:00: MOUTH [place] 00 TIMES Medical DAILY Branch gabapentin 2022-0 Yes [id number] TAKE 1 [facility] 300 mg 9-27 CAPSULE BY ity of capsule 00:00: MOUTH [place] 00 TIMES Medical DAILY Branch gabapentin 2022-0 Yes [id number] TAKE 1 [facility] 300 mg 9-27 CAPSULE BY ity of capsule 00:00: MOUTH [place] 00 TIMES Medical DAILY Branch gabapentin 2022-0 Yes [id number] TAKE 1 [facility] 300 mg 9-27 CAPSULE BY ity of capsule 00:00: MOUTH FOUR [place] 00 TIMES Medical DAILY Branch gabapentin 2022-0 Yes [id number] TAKE 1 [facility] 300 mg 9-27 CAPSULE BY ity of capsule 00:00: MOUTH [place] 00 TIMES Medical DAILY Branch gabapentin 2022-0 Yes [id number] TAKE 1 [facility] 300 mg 9-27 CAPSULE BY ity of capsule 00:00: MOUTH [place] 00 TIMES Medical DAILY Branch gabapentin 2022-0 Yes [id number] TAKE 1 [facility] 300 mg 9-27 CAPSULE BY ity of capsule 00:00: MOUTH FOUR [place] 00 TIMES Medical DAILY Branch gabapentin 2022-0 Yes [id number] TAKE 1 [facility] 300 mg 9-27 CAPSULE BY ity of capsule 00:00: MOUTH [place] 00 TIMES Medical DAILY Branch gabapentin 2022-0 Yes [id number] TAKE 1 [facility] 300 mg 9-27 CAPSULE BY ity of capsule 00:00: MOUTH FOUR [place] 00 TIMES Medical DAILY Branch gabapentin 2022-0 Yes [id number] TAKE 1 [facility] 300 mg 9-27 CAPSULE BY ity of capsule 00:00: MOUTH [place] 00 TIMES Medical DAILY Branch gabapentin 2022-0 Yes [id number] TAKE 1 [facility] 300 mg 9-27 CAPSULE BY it[facility] of capsule 00:00: MOUTH [place] 00 TIMES Medical DAILY Branch gabapentin 2022-0 Yes [id number] TAKE 1 [facility] 300 mg 9-27 CAPSULE BY ity of capsule 00:00: MOUTH [place] 00 TIMES Medical DAILY Branch gabapentin 2022-0 Yes [id number] TAKE 1 [facility] 300 mg 9-27 CAPSULE BY ity of capsule 00:00: MOUTH FOUR [place] 00 TIMES Medical DAILY Branch gabapentin 2022-0 Yes [id number] TAKE 1 [facility] 300 mg 9-27 CAPSULE BY ity of capsule 00:00: MOUTH FOUR [place] 00 TIMES Medical DAILY Branch gabapentin 2022-0 Yes [id number] TAKE 1 [facility] 300 mg 9-27 CAPSULE BY it[facility] of capsule 00:00: MOUTH [place] 00 TIMES Medical DAILY Branch gabapentin 2022-0 Yes [id number] TAKE 1 [facility] 300 mg 9-27 CAPSULE BY ity of capsule 00:00[place] TIMES [facility] DAILY Branch gabapentin 2022-0 Yes [id number] TAKE 1 [facility] 300 mg 9-27 CAPSULE BY [facility] capsule 00:00: [place] TIMES [facility] DAILY Branch gabapentin 2022-0 Yes [id number] TAKE 1 [facility] 300 mg 9-27 CAPSULE BY [facility] capsule 00:00: MOUTH FOUR [place] 00 TIMES Medical DAILY Branch gabapentin 2022-0 Yes [id number] TAKE 1 [facility] 300 mg 9-27 CAPSULE BY [facility] of capsule 00:00: MOUTH FOUR [place] 00 TIMES Medical DAILY Branch gabapentin 2022-0 Yes [id number] TAKE 1 [facility] 300 mg 9-27 CAPSULE BY [facility] of capsule 00:00: MOUTH FOUR [place] 00 TIMES Medical DAILY Branch gabapentin 2022-0 Yes [id number] TAKE 1 [facility] 300 mg 9-27 CAPSULE BY [facility] of capsule 00:00: MOUTH FOUR [place] 00 TIMES Medical DAILY Branch gabapentin 2022-0 Yes [id number] TAKE 1 [facility] 300 mg 9-27 CAPSULE BY [facility] capsule 00:00: MOUTH FOUR [place] 00 TIMES Medical DAILY Branch gabapentin 2022-0 Yes [id number] TAKE 1 [facility] 300 mg 9-27 CAPSULE BY [facility] capsule 00:00: MOUTH FOUR [place] 00 TIMES Medical DAILY Branch gabapentin 2022-0 Yes [id number] TAKE 1 [facility] 300 mg 9-27 CAPSULE BY [facility] capsule 00:00: MOUTH FOUR [place] 00 TIMES Medical DAILY Branch gabapentin 2022-0 Yes [id number] TAKE 1 [facility] 300 mg 9-27 CAPSULE BY [facility] of capsule 00:00: MOUTH FOUR [place] 00 TIMES Medical DAILY Branch gabapentin 2022-0 Yes [id number] TAKE 1 [facility] 300 mg 9-27 CAPSULE BY [facility] of capsule 00:00: MOUTH FOUR [place] 00 TIMES Medical DAILY Branch gabapentin 2022-0 Yes [id number] TAKE 1 [facility] 300 mg 9-27 CAPSULE BY [facility] capsule 00:00: MOUTH FOUR [place] 00 TIMES Medical DAILY Branch gabapentin 2022-0 Yes [id number] TAKE 1 [facility] 300 mg 9-27 CAPSULE BY [facility] of capsule 00:00: MOUTH FOUR [place] 00 TIMES Medical DAILY Branch gabapentin 2022-0 Yes [id number] TAKE 1 [facility] 300 mg 9-27 CAPSULE BY [facility] capsule 00:00: MOUTH FOUR [place] 00 TIMES Medical DAILY Branch gabapentin 2022-0 Yes [id number] TAKE 1 [facility] 300 mg 9-27 CAPSULE BY [facility] of capsule 00:00: MOUTH FOUR [place] 00 TIMES Medical DAILY Branch gabapentin 2022-0 Yes [id number] TAKE 1 [facility] 300 mg 9-27 CAPSULE BY [facility] of capsule 00:00: MOUTH FOUR [place] 00 TIMES Medical DAILY Branch gabapentin 2022-0 Yes [id number] TAKE 1 [facility] 300 mg 9-27 CAPSULE BY [facility] capsule 00:00: MOUTH FOUR [place] 00 TIMES Medical DAILY Branch gabapentin 2022-0 Yes [id number] TAKE 1 [facility] 300 mg 9-27 CAPSULE BY [facility] capsule 00:00: MOUTH FOUR [place] 00 TIMES Medical DAILY Branch gabapentin 2022-0 Yes [id number] TAKE 1 [facility] 300 mg 9-27 CAPSULE BY [facility] of capsule 00:00: M[place]TH FOUR [place] 00 TIMES Medical DAILY Branch gabapentin 2022-0 2022- No [id number] TAKE 1 [facility] 300 mg 9-27 12-20 CAPSULE BY it[facility] of capsule 00:00: 00:00 MOUTH FOUR [place] 00 :00 TIMES Medical DAILY Branch clonazePAM 2022-0 Yes [id number] 1mg Take 1 [facility] 1 mg tablet 9-26 tablet by [facility] of 00:00: mouth in [place] the Medical morning Branch and 1 tablet at noon and 1 tablet in the evening. clonazePAM 2022-0 Yes [id number] 1mg Take 1 [facility] 1 mg tablet 9-26 tablet by ity of 00:00: mouth in [place] the Medical morning Branch and 1 tablet at noon and 1 tablet in the evening. clonazePAM 2022-0 Yes [id number] 1mg Take 1 [facility] 1 mg tablet 9-26 tablet by ity of 00:00: mouth in [place] the Medical morning Branch and 1 tablet at noon and 1 tablet in the evening. clonazePAM 2022-0 Yes [id number] 1mg Take 1 [facility] 1 mg tablet 9-26 tablet by [facility] of 00:00: mouth in [place] the Medical morning Branch and 1 tablet at noon and 1 tablet in the evening. clonazePAM 2022-0 Yes [id number] 1mg Take 1 [facility] 1 mg tablet 9-26 tablet by [facility] of 00:00: mouth in [place] the Medical morning Branch and 1 tablet at noon and 1 tablet in the evening. clonazePAM 2022-0 Yes [id number] 1mg Take 1 [facility] 1 mg tablet 9-26 tablet by [facility] of 00:00: mouth in [place] [address] the Medical morning Branch and 1 tablet at noon and 1 tablet in the evening. clonazePAM 2022-0 Yes [id number] 1mg Take 1 [facility] 1 mg tablet 9-26 tablet by [facility] of 00:00: mouth in [place] [address] the Medical morning Branch and 1 tablet at noon and 1 tablet in the evening. clonazePAM 2022-0 Yes [id number] 1mg Take 1 [facility] 1 mg tablet 9-26 tablet by ity of 00:00: mouth in [place] 00 the Medical morning Branch and 1 tablet at noon and 1 tablet in the evening. clonazePAM 2022-0 Yes [id number] 1mg Take 1 [facility] 1 mg tablet 9-26 tablet by ity of 00:00: mouth in [place] 00 the Medical morning Branch and 1 tablet at noon and 1 tablet in the evening. clonazePAM 2022-0 Yes [id number] 1mg Take 1 [facility] 1 mg tablet 9-26 tablet by ity of 00:00: mouth in [place] 00 the Medical morning Branch and 1 tablet at noon and 1 tablet in the evening. clonazePAM 2022-0 Yes [id number] 1mg Take 1 [facility] 1 mg tablet 9-26 tablet by ity of 00:00: mouth in [place] 00 the Medical morning Branch and 1 tablet at noon and 1 tablet in the evening. clonazePAM 2022-0 Yes [id number] 1mg Take 1 [facility] 1 mg tablet 9-26 tablet by [facility]y of 00:00: mouth in [place] [address] the Medical morning Branch and 1 tablet at noon and 1 tablet in the evening. clonazePAM 2022-0 Yes [id number] 1mg Take 1 [facility] 1 mg tablet 9-26 tablet by [facility] of 00:00: mouth in [place] [address] the Medical morning Branch and 1 tablet at noon and 1 tablet in the evening. clonazePAM 2022-0 Yes [id number] 1mg Take 1 [facility] 1 mg tablet 9-26 tablet by [facility] of 00:00: mouth in [place] [address] the Medical morning Branch and 1 tablet at noon and 1 tablet in the evening. clonazePAM 2022-0 Yes [id number] 1mg Take 1 [facility] 1 mg tablet 9-26 tablet by [facility] of 00:00: mouth in [place] [address] the Medical morning Branch and 1 tablet at noon and 1 tablet in the evening. clonazePAM 2022-0 Yes [id number] 1mg Take 1 [facility] 1 mg tablet 9-26 tablet by [facility] of 00:00: mouth in [place] [address] the Medical morning Branch and 1 tablet at noon and 1 tablet in the evening. clonazePAM 2022-0 Yes [id number] 1mg Take 1 [facility] 1 mg tablet 9-26 tablet by [facility] of 00:00: mouth in [place] [address] the Medical morning Branch and 1 tablet at noon and 1 tablet in the evening. clonazePAM 2022-0 Yes [id number] 1mg Take 1 [facility] 1 mg tablet 9-26 tablet by [facility] of 00:00: mouth in [place] 00 the Medical morning Branch and 1 tablet at noon and 1 tablet in the evening. clonazePAM 2022-0 Yes [id number] 1mg Take 1 [facility] 1 mg tablet 9-26 tablet by [facility] of 00:00: mouth in [place] 00 the Medical morning Branch and 1 tablet at noon and 1 tablet in the evening. clonazePAM 2022-0 Yes [id number] 1mg Take 1 [facility] 1 mg tablet 9-26 tablet by ity of 00:00: mouth in [place] [address] the Medical morning Branch and 1 tablet at noon and 1 tablet in the evening. clonazePAM 2022-0 Yes [id number] 1mg Take 1 [facility] 1 mg tablet 9-26 tablet by ity of 00:00: mouth in [place] [address] the Medical morning Branch and 1 tablet at noon and 1 tablet in the evening. clonazePAM 2022-0 Yes [id number] 1mg Take 1 [facility] 1 mg tablet 9-26 tablet by ity of 00:00: mouth in [place] [address] the Medical morning Branch and 1 tablet at noon and 1 tablet in the evening. clonazePAM 2022-0 Yes [id number] 1mg Take 1 [facility] 1 mg tablet 9-26 tablet by [facility] of 00:00: mouth in [place] [address] the Medical morning Branch and 1 tablet at noon and 1 tablet in the evening. clonazePAM 2022-0 Yes [id number] 1mg Take 1 [facility] 1 mg tablet 9-26 tablet by [facility] of 00:00: mouth in [place] [address] the Medical morning Branch and 1 tablet at noon and 1 tablet in the evening. clonazePAM 2022-0 Yes [id number] 1mg Take 1 [facility] 1 mg tablet 9-26 tablet by [facility] of 00:00: mouth in [place] [address] the Medical morning Branch and 1 tablet at noon and 1 tablet in the evening. clonazePAM 2022-0 Yes [id number] 1mg Take 1 [facility] 1 mg tablet 9-26 tablet by [facility] of 00:00: mouth in [place] [address] the Medical morning Branch and 1 tablet at noon and 1 tablet in the evening. clonazePAM 2022-0 Yes [id number] 1mg Take 1 [facility] 1 mg tablet 9-26 tablet by [facility] of 00:00: mouth in [place] [address] the Medical morning Branch and 1 tablet at noon and 1 tablet in the evening. clonazePAM 2022-0 Yes [id number] 1mg Take 1 [facility] 1 mg tablet 9-26 tablet by [facility] of 00:00: mouth in [place] [address] the Medical morning Branch and 1 tablet at noon and 1 tablet in the evening. clonazePAM 2022-0 Yes [id number] 1mg Take 1 [facility] 1 mg tablet 9-26 tablet by it[facility] of 00:00: mouth in [place] [address] the Medical morning Branch and 1 tablet at noon and 1 tablet in the evening. clonazePAM 2022-0 Yes [id number] 1mg Take 1 [facility] 1 mg tablet 9-26 tablet by ity of 00:00: mouth in [place] [address] the Medical morning Branch and 1 tablet at noon and 1 tablet in the evening. clonazePAM 2022-0 Yes [id number] 1mg Take 1 [facility] 1 mg tablet 9-26 tablet by it[facility] of 00:00: mouth in [place] [address] the Medical morning Branch and 1 tablet at noon and 1 tablet in the evening. clonazePAM 2022-0 Yes [id number] 1mg Take 1 [facility] 1 mg tablet 9-26 tablet by [facility] of 00:00: mouth in [place] [address] the Medical morning Branch and 1 tablet at noon and 1 tablet in the evening. clonazePAM 2022-0 Yes [id number] 1mg Take 1 [facility] 1 mg tablet 9-26 tablet by it[facility] of 00:00: mouth in [place] [address] the Medical morning Branch and 1 tablet at noon and 1 tablet in the evening. clonazePAM 2022-0 Yes [id number] 1mg Take 1 [facility] 1 mg tablet 9-26 tablet by it[facility] of 00:00: mouth in [place] [address] the Medical morning Branch and 1 tablet at noon and 1 tablet in the evening. clonazePAM 2022-0 Yes [id number] 1mg Take 1 [facility] 1 mg tablet 9-26 tablet by it[facility] of 00:00: mouth in [place] [address] the Medical morning Branch and 1 tablet at noon and 1 tablet in the evening. clonazePAM 2022-0 Yes [id number] 1mg Take 1 [facility] 1 mg tablet 9-26 tablet by ity of 00:00: mouth in [place] [address] the Medical morning Branch and 1 tablet at noon and 1 tablet in the evening. clonazePAM 2022-0 Yes [id number] 1mg Take 1 [facility] 1 mg tablet 9-26 tablet by it[facility] of 00:00: mouth in [place] 00 the Medical morning Branch and 1 tablet at noon and 1 tablet in the evening. clonazePAM 2022-0 Yes [id number] 1mg Take 1 [facility] 1 mg tablet 9-26 tablet by ity of 00:00: mouth in [place] 00 the Medical morning Branch and 1 tablet at noon and 1 tablet in the evening. clonazePAM 2022-0 Yes [id number] 1mg Take 1 [facility] 1 mg tablet 9-26 tablet by ity of 00:00: mouth in [place] 00 the Medical morning Branch and 1 tablet at noon and 1 tablet in the evening. clonazePAM 2022-0 Yes [id number] 1mg Take 1 [facility] 1 mg tablet 9-26 tablet by ity of 00:00: mouth in [place] 00 the [facility] morning [place] and 1 tablet at noon and 1 tablet in the evening. clonazePAM 2-0 Yes [id number] 1mg Take 1 [facility] 1 mg tablet 9-26 tablet by ity of 00:00: mouth in [place] 00 the Medical morning Branch and 1 tablet at noon and 1 tablet in the evening. clonazePAM 2-0 Yes [id number] 1mg Take 1 [facility] 1 mg tablet 9-26 tablet by ity of 00:00: mouth in [place] 00 the [facility] morning [place] and 1 tablet at noon and 1 tablet in the evening. clonazePAM 2022-0 2022- No [id number] 1mg Take 1 [facility] 1 mg tablet 9-26 11-21 tablet by it y of 00:00: 00:00 mouth in [place] 00 :00 the [facility] morning [place] and 1 tablet at noon and 1 tablet in the evening. clonazePAM 2-0 2022- No [id number] 1mg Take 1 [facility] 1 mg tablet 9-26 11-21 tablet by it y of 00:00: 00:00 mouth in [place] 00 :00 the [facility] morning [place] and 1 tablet at noon and 1 tablet in the evening. HYDROcodone 2-0 Yes 2745 1{tbl} Take 1 [...] Pain. Indication s: chronic pain HYDROcodone 2021-0 2021- No 2745 1{tbl} Take 1 [facility] nivers -acetaminop 9-07 10-05 tablet by it y of hen 7.5-325 00:00: 00:[place] mg per 00 :00 every 6 Medical tablet (six) Branch hours as needed for Pain. Indication s: chronic pain VERAPAMIL 2021-0 Yes [id number] 240mg TAKE 1 [facility] 240 mg 24 8-29 CAPSULE BY ity of hr capsule 00:00: MOUTH [place] 00 DAILY Medical Branch VERAPAMIL 2022-0 Yes [id number] 240mg TAKE 1 [facility] 240 mg 24 8-29 CAPSULE BY ity of hr capsule 00:00: MOUTH [place] 00 DAILY Medical Branch VERAPAMIL 2022-0 Yes [id number] 240mg TAKE 1 [facility] 240 mg 24 8-29 CAPSULE BY ity of hr capsule 00:00: MOUTH [place] 00 DAILY Medical Branch VERAPAMIL 2022-0 Yes [id number] 240mg TAKE 1 [facility] 240 mg 24 8-29 CAPSULE BY ity of hr capsule 00:00: MOUTH [place] 00 DAILY Medical Branch VERAPAMIL 2022-0 Yes [id number] 240mg TAKE 1 [facility] 240 mg 24 8-29 CAPSULE BY ity of hr capsule 00:00: MOUTH DAILY Medical Branch VERAPAMIL 2022-0 Yes [id number] 240mg TAKE 1 [facility] 240 mg 24 8-29 CAPSULE BY ity of hr capsule 00:00: MOUTH DAILY Medical Branch VERAPAMIL 2022-0 Yes [id number] 240mg TAKE 1 [facility] 240 mg 24 8-29 CAPSULE BY ity of hr capsule 00:00: MOUTH DAILY Medical Branch VERAPAMIL 2022-0 Yes [id number] 240mg TAKE 1 [facility] 240 mg 24 8-29 CAPSULE BY ity of hr capsule 00:00: MOUTH DAILY Medical Branch VERAPAMIL 2022-0 Yes [id number] 240mg TAKE 1 [facility] 240 mg 24 8-29 CAPSULE BY ity of hr capsule 00:00: MOUTH DAILY Medical Branch VERAPAMIL 2022-0 Yes [id number] 240mg TAKE 1 [facility] 240 mg 24 8-29 CAPSULE BY ity of hr capsule 00:00: MOUTH DAILY Medical Branch VERAPAMIL 2022-0 Yes [id number] 240mg TAKE 1 [facility] 240 mg 24 8-29 CAPSULE BY ity of hr capsule 00:00: MOUTH DAILY Medical Branch VERAPAMIL 2022-0 Yes [id number] 240mg TAKE 1 [facility] 240 mg 24 8-29 CAPSULE BY ity of hr capsule 00:00: MOUTH DAILY Medical Branch VERAPAMIL 2022-0 Yes [id number] 240mg TAKE 1 [facility] 240 mg 24 8-29 CAPSULE BY ity of hr capsule 00:00: MOUTH DAILY Medical Branch VERAPAMIL 2022-0 Yes [id number] 240mg TAKE 1 [facility] 240 mg 24 8-29 CAPSULE BY ity of hr capsule 00:00: MOUTH DAILY Medical Branch VERAPAMIL 2022-0 Yes [id number] 240mg TAKE 1 [facility] 240 mg 24 8-29 CAPSULE BY ity of hr capsule 00:00: MOUTH DAILY Medical Branch VERAPAMIL 2022-0 Yes [id number] 240mg TAKE 1 [facility] 240 mg 24 8-29 CAPSULE BY ity of hr capsule 00:00: MOUTH DAILY Medical Branch VERAPAMIL 2022-0 Yes [id number] 240mg TAKE 1 [facility] 240 mg 24 8-29 CAPSULE BY ity of hr capsule 00:00: MOUTH DAILY Medical Branch VERAPAMIL 2022-0 Yes [id number] 240mg TAKE 1 [facility] 240 mg 24 8-29 CAPSULE BY ity of hr capsule 00:00: MOUTH DAILY Medical Branch VERAPAMIL 2022-0 Yes [id number] 240mg TAKE 1 [facility] 240 mg 24 8-29 CAPSULE BY ity of hr capsule 00:00: MOUTH DAILY Medical Branch VERAPAMIL 2022-0 Yes [id number] 240mg TAKE 1 [facility] 240 mg 24 8-29 CAPSULE BY ity of hr capsule 00:00: MOUTH DAILY Medical Branch VERAPAMIL 2022-0 Yes [id number] 240mg TAKE 1 [facility] 240 mg 24 8-29 CAPSULE BY ity of hr capsule 00:00: MOUTH DAILY Medical Branch VERAPAMIL 2022-0 Yes [id number] 240mg TAKE 1 [facility] 240 mg 24 8-29 CAPSULE BY ity of hr capsule 00:00: MOUTH DAILY Medical Branch VERAPAMIL 2022-0 Yes [id number] 240mg TAKE 1 [facility] 240 mg 24 8-29 CAPSULE BY ity of hr capsule 00:00: MOUTH DAILY Medical Branch VERAPAMIL 2022-0 Yes [id number] 240mg TAKE 1 [facility] 240 mg 24 8-29 CAPSULE BY ity of hr capsule 00:00: MOUTH DAILY Medical Branch VERAPAMIL 2022-0 Yes [id number] 240mg TAKE 1 [facility] 240 mg 24 8-29 CAPSULE BY ity of hr capsule 00:00: MOUTH DAILY Medical Branch VERAPAMIL 2022-0 Yes [id number] 240mg TAKE 1 [facility] 240 mg 24 8-29 CAPSULE BY ity of hr capsule 00:00: MOUTH DAILY Medical Branch VERAPAMIL 2022-0 Yes [id number] 240mg TAKE 1 [facility] 240 mg 24 8-29 CAPSULE BY ity of hr capsule 00:00: MOUTH DAILY Medical Branch VERAPAMIL 2022-0 Yes [id number] 240mg TAKE 1 [facility] 240 mg 24 8-29 CAPSULE BY ity of hr capsule 00:00: MOUTH DAILY Medical Branch VERAPAMIL 2022-0 Yes [id number] 240mg TAKE 1 [facility] 240 mg 24 8-29 CAPSULE BY ity of hr capsule 00:00: MOUTH DAILY Medical Branch VERAPAMIL 2022-0 Yes [id number] 240mg TAKE 1 [facility] 240 mg 24 8-29 CAPSULE BY ity of hr capsule 00:00: MOUTH 00 DAILY Medical Branch VERAPAMIL 0 Yes [id number] 240mg TAKE 1 [facility] 240 mg 03-31 CAPSULE BY ity of hr capsule 00:00: MOUTH DAILY Medical Branch VERAPAMIL 2021-0 2021- No [id number] 240mg TAKE 1 [facility] 240 mg 03-31 CAPSULE BY ity of hr capsule 00:00: 00:00 MOUTH [place] 00 :00 DAILY Medical Branch VERAPAMIL 2021-0 2021- No [id number] 240mg TAKE 1 [facility] 240 mg 03-31 CAPSULE BY ity of hr capsule 00:00: 00:00 MOUTH [place] 00 : DAILY Medical Branch VERAPAMIL 2021-0 2021- No [id number] 240mg TAKE 1 [facility] 240 mg 03-31 CAPSULE BY ity of hr capsule 00:00: 00:00 MOUTH [place] 00 :00 DAILY Medical Branch ALBUTEROL Yes [id number] INHALE 2 [facility] 90 8-24 PUFFS BY ity of mcg/actuati 00:00: [facility] on inhaler 00 EVERY 6 Medica l HOURS Branch NEEDED FOR WHEEZING, SHORTNESS OF BREATH OR BRONCHOSPA SMS ALBUTEROL Yes [id number] INHALE 2 [facility] 90 8-24 PUFFS BY ity of mcg/actuati 00:00: [facility] on inhaler 00 EVERY 6 Medica l HOURS Branch NEEDED FOR WHEEZING, SHORTNESS OF BREATH OR BRONCHOSPA SMS ALBUTEROL Yes [id number] INHALE 2 [facility] 90 8-24 PUFFS BY ity of mcg/actuati 00:00: MOUTH [place] on inhaler 00 EVERY 6 Medica l HOURS Branch NEEDED FOR WHEEZING, SHORTNESS OF BREATH OR BRONCHOSPA SMS ALBUTEROL Yes [id number] INHALE 2 [facility] 90 8-24 PUFFS BY ity of mcg/actuati 00:00: MOUTH [place] on inhaler 00 EVERY 6 Medica l HOURS Branch NEEDED FOR WHEEZING, SHORTNESS OF BREATH OR BRONCHOSPA SMS ALBUTEROL Yes [id number] INHALE 2 [facility] 90 8-24 PUFFS BY ity of mcg/actuati 00:00: MOUTH [place] on inhaler 00 EVERY 6 Medica l HOURS Branch NEEDED FOR WHEEZING, SHORTNESS OF BREATH OR BRONCHOSPA SMS ALBUTEROL Yes [id number] INHALE 2 [facility] 90 8-24 PUFFS BY ity of mcg/actuati 00:00: MOUTH [place] on inhaler 00 EVERY 6 Medica l HOURS Branch NEEDED FOR WHEEZING, SHORTNESS OF BREATH OR BRONCHOSPA SMS ALBUTEROL Yes [id number] INHALE 2 [facility] 90 8-24 PUFFS BY ity of mcg/actuati 00:00: MOUTH [place] on inhaler 00 EVERY 6 Medica l HOURS Branch NEEDED FOR WHEEZING, SHORTNESS OF BREATH OR BRONCHOSPA SMS ALBUTEROL Yes [id number] INHALE 2 [facility] 90 8-24 PUFFS BY ity of mcg/actuati 00:00: MOUTH [place] on inhaler 00 EVERY 6 Medica l HOURS Branch NEEDED FOR WHEEZING, SHORTNESS OF BREATH OR BRONCHOSPA SMS ALBUTEROL Yes [id number] INHALE 2 [facility] 90 8-24 PUFFS BY ity of mcg/actuati 00:00: MOUTH [place] on inhaler 00 EVERY 6 Medica l HOURS Branch NEEDED FOR WHEEZING, SHORTNESS OF BREATH OR BRONCHOSPA SMS ALBUTEROL Yes [id number] INHALE 2 [facility] 90 8-24 PUFFS BY ity of mcg/actuati 00:00: MOUTH [place] on inhaler 00 EVERY 6 Medica l HOURS Branch NEEDED FOR WHEEZING, SHORTNESS OF BREATH OR BRONCHOSPA SMS ALBUTEROL Yes [id number] INHALE 2 [facility] 90 8-24 PUFFS BY ity of mcg/actuati 00:00: MOUTH [place] on inhaler 00 EVERY 6 Medica l HOURS Branch NEEDED FOR WHEEZING, SHORTNESS OF BREATH OR BRONCHOSPA SMS ALBUTEROL Yes [id number] INHALE 2 [facility] 90 8-24 PUFFS BY ity of mcg/actuati 00:00: MOUTH [place] on inhaler 00 EVERY 6 Medica l HOURS Branch NEEDED FOR WHEEZING, SHORTNESS OF BREATH OR BRONCHOSPA SMS ALBUTEROL Yes [id number] INHALE 2 [facility] 90 8-24 PUFFS BY ity of mcg/actuati 00:00: MOUTH [place] on inhaler 00 EVERY 6 Medica l HOURS Branch NEEDED FOR WHEEZING, SHORTNESS OF BREATH OR BRONCHOSPA SMS ALBUTEROL Yes [id number] INHALE 2 [facility] 90 8-24 PUFFS BY ity of mcg/actuati 00:00: MOUTH [place] on inhaler 00 EVERY 6 Medica l HOURS Branch NEEDED FOR WHEEZING, SHORTNESS OF BREATH OR BRONCHOSPA SMS ALBUTEROL Yes [id number] INHALE 2 [facility] 90 8-24 PUFFS BY ity of mcg/actuati 00:00: MOUTH [place] on inhaler 00 EVERY 6 Medica l HOURS Branch NEEDED FOR WHEEZING, SHORTNESS OF BREATH OR BRONCHOSPA SMS ALBUTEROL Yes [id number] INHALE 2 [facility] 90 8-24 PUFFS BY ity of mcg/actuati 00:00: MOUTH [place] on inhaler 00 EVERY 6 Medica l HOURS Branch NEEDED FOR WHEEZING, SHORTNESS OF BREATH OR BRONCHOSPA SMS ALBUTEROL Yes [id number] INHALE 2 [facility] 90 8-24 PUFFS BY ity of mcg/actuati 00:00: MOUTH [place] on inhaler 00 EVERY 6 Medica l HOURS Branch NEEDED FOR WHEEZING, SHORTNESS OF BREATH OR BRONCHOSPA SMS ALBUTEROL 202- No [id number] INHALE 2 [facility] 90 8-24 10-21 PUFFS BY ity of mcg/actuati 00:00: 00:[place] MOUTH [place] inhaler 00 :00 EVERY 6 Medica l HOURS Branch NEEDED FOR WHEEZING, SHORTNESS OF BREATH OR BRONCHOSPA SMS ALBUTEROL 2021- No [id number] INHALE 2 [facility] 90 8-24 10-21 PUFFS BY ity of mcg/actuati 00:00: 00:00 MOUTH [place] on inhaler 00 :00 EVERY 6 Medica l HOURS Branch NEEDED FOR WHEEZING, SHORTNESS OF BREATH OR BRONCHOSPA [facility] HYDROcodone Yes 2745 1{tbl} Take 1 Un [...] for Pain. Indication s: chronic pain HYDROcodone 2022-0 Yes 2745 1{tbl} Take 1 [facility] [...] Indication s: chronic pain QUINAPRIL 2021-0 Yes [id number] 40mg TAKE 1 [facility] 40 mg 8-01 TABLET BY ity of tablet 00:00: MOUTH [place] 00 EVERY Medical MORNING Branch TIZANIDINE 2021-0 Yes [id number] TAKE 1 [facility] 4 mg tablet 8-01 TABLET BY ity of 00:00: MOUTH [place] 00 EVERY 8 Medical HOURS Branch NEEDED QUINAPRIL 2-0 Yes [id number] 40mg TAKE 1 [facility] 40 mg 8-01 TABLET BY ity of tablet 00:00: MOUTH [place] 00 EVERY Medical MORNING Branch TIZANIDINE 2-0 Yes [id number] TAKE 1 [facility] 4 mg tablet 8-01 TABLET BY ity of 00:00: MOUTH [place] 00 EVERY 8 Medical HOURS Branch NEEDED QUINAPRIL 2-0 Yes [id number] 40mg TAKE 1 [facility] 40 mg 8-01 TABLET BY ity of tablet 00:00: MOUTH [place] 00 EVERY Medical MORNING Branch TIZANIDINE 2-0 Yes [id number] TAKE 1 [facility] 4 mg tablet 8-01 TABLET BY ity of 00:00: MOUTH [place] 00 EVERY 8 Medical HOURS Branch NEEDED QUINAPRIL 2-0 Yes [id number] 40mg TAKE 1 [facility] 40 mg 8-01 TABLET BY ity of tablet 00:00: MOUTH [place] 00 EVERY Medical MORNING Branch TIZANIDINE 2-0 Yes [id number] TAKE 1 [facility] 4 mg tablet 8-01 TABLET BY ity of 00:00: MOUTH [place] 00 EVERY 8 Medical HOURS Branch NEEDED QUINAPRIL 2022-0 Yes [id number] 40mg TAKE 1 [facility] 40 mg 8-01 TABLET BY ity of tablet 00:00: MOUTH [place] 00 EVERY Medical MORNING Branch TIZANIDINE 2022-0 Yes [id number] TAKE 1 [facility] 4 mg tablet 8-01 TABLET BY ity of 00:00: MOUTH 00 EVERY 8 Medical HOURS Branch NEEDED QUINAPRIL 2022-0 Yes [id number] 40mg TAKE 1 [facility] 40 mg 8-01 TABLET BY ity of tablet 00:00: MOUTH [place] 00 EVERY Medical MORNING Branch TIZANIDINE 2-0 Yes [id number] TAKE 1 [facility] 4 mg tablet 8-01 TABLET BY ity of 00:00: MOUTH EVERY 8 Medical HOURS Branch NEEDED QUINAPRIL 2022-0 Yes [id number] 40mg TAKE 1 [facility] 40 mg 8-01 TABLET BY ity of tablet 00:00: MOUTH 00 EVERY Medical MORNING Branch TIZANIDINE 2022-0 Yes [id number] TAKE 1 [facility] 4 mg tablet 8-01 TABLET BY ity of 00:00: MOUTH EVERY 8 Medical HOURS Branch NEEDED QUINAPRIL 2022-0 Yes [id number] 40mg TAKE 1 [facility] 40 mg 8-01 TABLET BY ity of tablet 00:00: MOUTH [place] 00 EVERY Medical MORNING Branch TIZANIDINE 2022-0 Yes [id number] TAKE 1 [facility] 4 mg tablet 8-01 TABLET BY ity of 00:00: MOUTH EVERY 8 Medical HOURS Branch NEEDED QUINAPRIL 2022-0 Yes [id number] 40mg TAKE 1 [facility] 40 mg 8-01 TABLET BY ity of tablet 00:00: MOUTH [place] 00 EVERY Medical MORNING Branch TIZANIDINE 2022-0 Yes [id number] TAKE 1 [facility] 4 mg tablet 8-01 TABLET BY ity of 00:00: MOUTH [place] 00 EVERY 8 Medical HOURS Branch NEEDED QUINAPRIL 2022-0 Yes [id number] 40mg TAKE 1 [facility] 40 mg 8-01 TABLET BY ity of tablet 00:00: MOUTH [place] 00 EVERY Medical MORNING Branch TIZANIDINE 2022-0 Yes [id number] TAKE 1 [facility] 4 mg tablet 8-01 TABLET BY ity of 00:00: MOUTH EVERY 8 Medical HOURS Branch NEEDED QUINAPRIL 2022-0 Yes [id number] 40mg TAKE 1 [facility] 40 mg 8-01 TABLET BY ity of tablet 00:00: MOUTH [place] 00 EVERY Medical MORNING Branch TIZANIDINE 2-0 Yes [id number] TAKE 1 [facility] 4 mg tablet 8-01 TABLET BY ity of 00:00: MOUTH [place] 00 EVERY 8 Medical HOURS Branch NEEDED QUINAPRIL 2022-0 Yes [id number] 40mg TAKE 1 [facility] 40 mg 8-01 TABLET BY ity of tablet 00:00: MOUTH [place] 00 EVERY Medical MORNING Branch TIZANIDINE 2022-0 Yes [id number] TAKE 1 [facility] 4 mg tablet 8-01 TABLET BY ity of 00:00: MOUTH [place] 00 EVERY 8 Medical HOURS Branch NEEDED QUINAPRIL 2022-0 Yes [id number] 40mg TAKE 1 [facility] 40 mg 8-01 TABLET BY ity of tablet 00:00: MOUTH [place] 00 EVERY Medical MORNING Branch TIZANIDINE 2-0 Yes [id number] TAKE 1 [facility] 4 mg tablet 8-01 TABLET BY ity of 00:00: MOUTH [place] 00 EVERY 8 Medical HOURS Branch NEEDED QUINAPRIL 2022-0 Yes [id number] 40mg TAKE 1 [facility] 40 mg 8-01 TABLET BY [facility] of tablet 00:00: MOUTH [place] 00 EVERY Medical MORNING Branch TIZANIDINE 2-0 Yes [id number] TAKE 1 [facility] 4 mg tablet 8-01 TABLET BY [facility] of 00:00: MOUTH [place] 00 EVERY 8 Medical HOURS Branch NEEDED QUINAPRIL 2022-0 Yes [id number] 40mg TAKE 1 [facility] 40 mg 8-01 TABLET BY [facility] of tablet 00:00: MOUTH [place] 00 EVERY Medical MORNING Branch TIZANIDINE 2022-0 Yes [id number] TAKE 1 [facility] 4 mg tablet 8-01 TABLET BY [facility] of 00:00: MOUTH [place] 00 EVERY 8 Medical HOURS Branch NEEDED QUINAPRIL 2022-0 Yes [id number] 40mg TAKE 1 [facility] 40 mg 8-01 TABLET BY [facility] of tablet 00:00: MOUTH [place] 00 EVERY Medical MORNING Branch TIZANIDINE 2022-0 Yes [id number] TAKE 1 [facility] 4 mg tablet 8-01 TABLET BY [facility] of 00:00: MOUTH [place] 00 EVERY 8 Medical HOURS Branch NEEDED QUINAPRIL 2022-0 Yes [id number] 40mg TAKE 1 [facility] 40 mg 8-01 TABLET BY [facility] of tablet 00:00: MOUTH [place] 00 EVERY Medical MORNING Branch TIZANIDINE 2022-0 Yes [id number] TAKE 1 [facility] 4 mg tablet 8-01 TABLET BY [facility] of 00:00: MOUTH [place] 00 EVERY 8 Medical HOURS Branch NEEDED QUINAPRIL 2022-0 Yes [id number] 40mg TAKE 1 [facility] 40 mg 8-01 TABLET BY [facility] of tablet 00:00: MOUTH [place] 00 EVERY Medical MORNING Branch TIZANIDINE 2022-0 Yes [id number] TAKE 1 [facility] 4 mg tablet 8-01 TABLET BY [facility] of 00:00: MOUTH [place] 00 EVERY 8 Medical HOURS Branch NEEDED QUINAPRIL 2022-0 Yes [id number] 40mg TAKE 1 [facility] 40 mg 8-01 TABLET BY [facility] of tablet 00:00: MOUTH [place] 00 EVERY Medical MORNING Branch TIZANIDINE 2-0 Yes [id number] TAKE 1 [facility] 4 mg tablet 8-01 TABLET BY [facility] of 00:00: MOUTH 00 EVERY 8 Medical HOURS Branch NEEDED TIZANIDINE 2022-0 Yes [id number] TAKE 1 [facility] 4 mg tablet 8-01 TABLET BY [facility] of 00:00: MOUTH [place] 00 EVERY 8 Medical HOURS Branch NEEDED TIZANIDINE 2022-0 Yes [id number] TAKE 1 [facility] 4 mg tablet 8-01 TABLET BY [facility] of 00:00: MOUTH [place] 00 EVERY 8 Medical HOURS Branch NEEDED TIZANIDINE 2022-0 Yes [id number] TAKE 1 [facility] 4 mg tablet 8-01 TABLET BY [facility] of 00:00: MOUTH [place] 00 EVERY 8 Medical HOURS Branch NEEDED TIZANIDINE 2022-0 Yes [id number] TAKE 1 [facility] 4 mg tablet 8-01 TABLET BY it[facility] of 00:00: MOUTH [place] 00 EVERY 8 Medical HOURS Branch NEEDED TIZANIDINE 2022-0 2- No [id number] TAKE 1 [facility] 4 mg tablet 8-01 10-24 TABLET BY it y of 00:00: 00:00 MOUTH [place] 00 :00 EVERY 8 Medical HOURS Branch NEEDED QUINAPRIL 2022-0 2022- No [id number] 40mg TAKE 1 [facility] 40 mg 8-01 10-21 TABLET BY [facility] of tablet 00:00: 00:00 MOUTH [place] 00 :00 EVERY Medical MORNING Branch glipiZIDE 2022-0 Yes [id number] 5mg TAKE 1 [facility] XL 5 mg 24 7-28 TABLET BY it[facility] of hr tablet 00:00: MOUTH [place] 00 DAILY WITH Medical BREAKFAST Branch glipiZIDE 2-0 Yes [id number] 5mg TAKE 1 [facility] XL 5 mg 24 7-28 TABLET BY it[facility] of hr tablet 00:00: MOUTH 00 DAILY WITH Medical BREAKFAST Branch glipiZIDE 2021-0 Yes [id number] 5mg TAKE 1 [facility] XL 5 mg 24 7-28 TABLET BY it[facility] of hr tablet 00:00: MOUTH 00 DAILY WITH Medical BREAKFAST Branch glipiZIDE 2021-0 Yes [id number] 5mg TAKE 1 [facility] XL 5 mg 24 7-28 TABLET BY it[facility] of hr tablet 00:00: MOUTH DAILY WITH Medical BREAKFAST Branch glipiZIDE 2021-0 Yes [id number] 5mg TAKE 1 [facility] XL 5 mg 24 7-28 TABLET BY it[facility] of hr tablet 00:00: MOUTH DAILY WITH Medical BREAKFAST Branch glipiZIDE 2021-0 Yes [id number] 5mg TAKE 1 [facility] XL 5 mg 24 7-28 TABLET BY it[facility] of hr tablet 00:00: MOUTH DAILY WITH Medical BREAKFAST Branch glipiZIDE 2021-0 Yes [id number] 5mg TAKE 1 [facility] XL 5 mg 24 7-28 TABLET BY it[facility] of hr tablet 00:00: MOUTH DAILY WITH Medical BREAKFAST Branch glipiZIDE 2021-0 Yes [id number] 5mg TAKE 1 [facility] 5 mg 24 7-28 TABLET BY ity of hr tablet 00:00: MOUTH DAILY WITH Medical BREAKFAST Branch glipiZIDE 2-0 Yes [id number] 5mg TAKE 1 [facility] 5 mg 24 7-28 TABLET BY it[facility] of hr tablet 00:00: MOUTH 00 DAILY WITH Medical BREAKFAST Branch glipiZIDE 2-0 Yes [id number] 5mg TAKE 1 [facility] 5 mg 24 7-28 TABLET BY it[facility] of hr tablet 00:00: MOUTH 00 DAILY WITH Medical BREAKFAST Branch glipiZIDE 2-0 Yes [id number] 5mg TAKE 1 [facility] XL 5 mg 24 7-28 TABLET BY ity of hr tablet 00:00: MOUTH 00 DAILY WITH Medical BREAKFAST Branch glipiZIDE 2021-0 Yes [id number] 5mg TAKE 1 [facility] XL 5 mg 24 7-28 TABLET BY ity of hr tablet 00:00: MOUTH 00 DAILY WITH Medical BREAKFAST Branch glipiZIDE 2021-0 Yes [id number] 5mg TAKE 1 [facility] XL 5 mg 24 7-28 TABLET BY ity of hr tablet 00:00: MOUTH 00 DAILY WITH Medical BREAKFAST Branch glipiZIDE 2021-0 Yes [id number] 5mg TAKE 1 [facility] XL 5 mg 24 7-28 TABLET BY ity of hr tablet 00:00: MOUTH 00 DAILY WITH Medical BREAKFAST Branch glipiZIDE 2021-0 Yes [id number] 5mg TAKE 1 [facility] XL 5 mg 24 7-28 TABLET BY ity of hr tablet 00:00: MOUTH 00 DAILY WITH Medical BREAKFAST Branch glipiZIDE 2021-0 Yes [id number] 5mg TAKE 1 [facility] 5 mg 24 7-28 TABLET BY ity of hr tablet 00:00: MOUTH DAILY WITH Medical BREAKFAST Branch glipiZIDE 2021-0 Yes [id number] 5mg TAKE 1 [facility] 5 mg 24 7-28 TABLET BY ity of hr tablet 00:00: MOUTH 00 DAILY WITH Medical BREAKFAST Branch glipiZIDE 2021-0 Yes [id number] 5mg TAKE 1 [facility] 5 mg 24 7-28 TABLET BY ity of hr tablet 00:00: MOUTH 00 DAILY WITH Medical BREAKFAST Branch glipiZIDE 2021-0 Yes [id number] 5mg TAKE 1 [facility] 5 mg 24 7-28 TABLET BY ity of hr tablet 00:00: MOUTH 00 DAILY WITH Medical BREAKFAST Branch glipiZIDE 2021-0 Yes [id number] 5mg TAKE 1 [facility] 5 mg 24 7-28 TABLET BY ity of hr tablet 00:00: MOUTH 00 DAILY WITH Medical BREAKFAST Branch glipiZIDE 2021-0 2021- No [id number] 5mg TAKE 1 [facility] XL 5 mg 24 7-28 10-21 TABLET BY ity of hr tablet 00:00: 00:00 MOUTH [place] 00 :00 DAILY WITH Medical BREAKFAST Branch glipiZIDE 2021-0 2- No [id number] 5mg TAKE 1 [facility] XL 5 mg 24 7-28 10-21 TABLET BY ity of hr tablet 00:00: 00:00 MOUTH [place] 00 :00 DAILY WITH [facility] BREAKFAST Branch glipiZIDE 2021-0 2- No [id number] 5mg TAKE 1 [facility] XL 5 mg 24 7-28 10-21 TABLET BY ity of hr tablet 00:00: 00:00 MOUTH [place] 00 :00 DAILY WITH Medical BREAKFAST Branch glipiZIDE 2021-0 2- No [id number] 5mg TAKE 1 [facility] XL 5 mg 24 7-28 10-21 TABLET BY ity of hr tablet 00:00: 00:00 MOUTH [place] 00 :00 DAILY WITH [facility] BREAKFAST Branch clonazePAM 2-0 Yes [id number] 1mg Take 1 [facility] 1 mg tablet 7-25 tablet by ity of 00:00: mouth in [place] the [facility] morning [place] and 1 tablet at noon and 1 tablet in the evening. clonazePAM 2-0 Yes [id number] 1mg Take 1 [facility] 1 mg tablet 7-25 tablet by ity of 00:00: mouth in [place] [address] the [facility] and 1 tablet at noon and 1 tablet in the evening. clonazePAM 2021-0 Yes [id number] 1mg Take 1 [facility] 1 mg tablet 7-25 tablet by ity of 00:00: mouth in [place] the [facility] morning [place] and 1 tablet at noon and 1 tablet in the evening. clonazePAM 2-0 Yes [id number] 1mg Take 1 [facility] 1 mg tablet 7-25 tablet by ity of 00:00: mouth in [place] [address] the [facility] and 1 tablet at noon and 1 tablet in the evening. clonazePAM 2-0 Yes [id number] 1mg Take 1 [facility] 1 mg tablet 7-25 tablet by ity of 00:00: mouth in [place] [address] the [facility] morning [place] and 1 tablet at noon and 1 tablet in the evening. clonazePAM 2-0 Yes [id number] 1mg Take 1 [facility] 1 mg tablet 7-25 tablet by ity of 00:00: mouth in [place] [address] the [facility] and 1 tablet at noon and 1 tablet in the evening. clonazePAM 2021-0 2022- No [id number] 1mg Take 1 [facility] 1 mg tablet 7-25 09-26 tablet by it y of 00:00: 00:00 mouth in [place] 00 :00 the [facility] and 1 tablet at noon and 1 tablet in the evening. nirmatrelvi 0 Yes [id number] 3{tbl} Take 3 [facility] r-ritonavir 7-13 tablets by it y of (PAXLOVID, 00:00: mouth in [place] as [place],) 150 00 the Medical mg x 2- 100 morning Branc h mg tablet and 3 tablets in the evening. nirgatrelvi 0 Yes [id number] 3{tbl} Take 3 [facility] r-ritonavir 7-13 tablets by it y of (PAXLOVID, 00:00: mouth in [place] as [place],) 150 00 the Medical mg x 2- 100 morning Branc h mg tablet and 3 tablets in the evening. nirgatrelvi 0 Yes [id number] 3{tbl} Take 3 [facility] r-ritonavir 7-13 tablets by it y of (PAXLOVID, 00:00: mouth in [place],) 150 00 the Medical mg x 2- 100 morning Br[facility] mg tablet and 3 [facility] the evening. [facility] [id number] 3{tbl} Take 3 [facility] r-ritonavir 7-13 tablets by it y of (PAXLOVID, 00:00: mouth in [place],) 150 00 the Medical mg x 2- 100 morning Branc h mg tablet and 3 tablets in the evening. [facility] Yes [id number] 3{tbl} Take 3 [facility] r-ritonavir 7-13 tablets by it y of (PAXLOVID, 00:00: mouth in [place] as [place],) 150 00 the Medical mg x 2- 100 morning Branc h mg tablet and 3 tablets in the evening. [facility] Yes [id number] 3{tbl} Take 3 [facility] r-ritonavir 7-13 tablets by it y of (PAXLOVID, 00:00: mouth in [place],) 150 00 the Medical mg x 2- 100 morning Branc h mg tablet and 3 tablets in the evening. nirgatrelvi 0 Yes [id number] 3{tbl} Take 3 [facility] r-ritonavir 7-13 tablets by it y of (PAXLOVID, 00:00: mouth in [place] [facility],) 150 00 the Medical mg x 2- 100 morning Branc h mg tablet and 3 tablets in the evening. nirmatrelvi 2021-0 Yes [id number] 3{tbl} Take 3 [facility] r-ritonavir 7-13 tablets by it y of (PAXLOVID, 00:00: mouth in [place] as [place],) 150 00 the Medical mg x 2- 100 morning Branc h mg tablet and 3 tablets in the evening. nirmatrelvi 2021-0 Yes [id number] 3{tbl} Take 3 [facility] r-ritonavir 7-13 tablets by it y of (PAXLOVID, 00:00: mouth in [place] as [place],) 150 00 the Medical mg x 2- 100 morning Branc h mg tablet and 3 tablets in the evening. nirmatrelvi 2021-0 Yes [id number] 3{tbl} Take 3 [facility] r-ritonavir 7-13 tablets by it y of (PAXLOVID, 00:00: mouth in [place] as EU[place],) 150 00 the Medical mg x 2- 100 morning Branc h mg tablet and 3 tablets in the evening. nirmatrelvi 2021-0 Yes [id number] 3{tbl} Take 3 [facility] r-ritonavir 7-13 tablets by it y of (PAXLOVID, 00:00: mouth in [place] as EU[place],) 150 00 the Medical mg x 2- 100 morning Branc h mg tablet and 3 tablets in the evening. nirmatrelvi 2021-0 Yes [id number] 3{tbl} Take 3 [facility] r-ritonavir 7-13 tablets by it y of (PAXLOVID, 00:00: mouth in [place] as [place],) 150 00 the Medical mg x 2- 100 morning Branc h mg tablet and 3 tablets in the evening. nirmatrelvi 2021-0 Yes [id number] 3{tbl} Take 3 [facility] r-ritonavir 7-13 tablets by it y of (PAXLOVID, 00:00: mouth in [place] as EU[place],) 150 00 the Medical mg x 2- 100 morning Branc h mg tablet and 3 tablets in the evening. nirmatrelvi 2021-0 Yes [id number] 3{tbl} Take 3 [facility] r-ritonavir 7-13 tablets by it y of (PAXLOVID, 00:00: mouth in [place] as EU[place],) 150 00 the Medical mg x 2- 100 morning Branc h mg tablet and 3 tablets in the evening. nirgatrelvi 0 Yes [id number] 3{tbl} Take 3 [facility] r-ritonavir 7-13 tablets by it y of (PAXLOVID, 00:00: mouth in [place] as EU[place],) 150 00 the Medical mg x 2- 100 morning Branc h mg tablet and 3 tablets in the evening. nirgatrelvi 2021-0 Yes [id number] 3{tbl} Take 3 [facility] r-ritonavir 7-13 tablets by it y of (PAXLOVID, 00:00: mouth in [place] as EU[place],) 150 00 the Medical mg x 2- 100 morning Branc h mg tablet and 3 tablets in the evening. nirgatrelvi 0 Yes [id number] 3{tbl} Take 3 [facility] r-ritonavir 7-13 tablets by it y of (PAXLOVID, 00:00: mouth in [place] as EU[place],) 150 00 the Medical mg x 2- 100 morning Branc h mg tablet and 3 tablets in the evening. nirgatrelvi 0 Yes [id number] 3{tbl} Take 3 [facility] r-ritonavir 7-13 tablets by it y of (PAXLOVID, 00:00: mouth in [place] as EU[place],) 150 00 the Medical mg x 2- 100 morning Branc h mg tablet and 3 tablets in the evening. nirgatrelvi 0 Yes [id number] 3{tbl} Take 3 [facility] r-ritonavir 7-13 tablets by it y of (PAXLOVID, 00:00: mouth in [place] as EU[place],) 150 00 the Medical mg x 2- 100 morning Branc h mg tablet and 3 tablets in the evening. nirgatrelvi 2021-0 Yes [id number] 3{tbl} Take 3 [facility] r-ritonavir 7-13 tablets by it y of (PAXLOVID, 00:00: mouth in [place] as EU[place],) 150 00 the Medical mg x 2- 100 morning Branc h mg tablet and 3 tablets in the evening. nirgatrelvi 2021- No [id number] 3{tbl} Take 3 [facility] r-ritonavir 7-13 10-21 tablets by i ty of (PAXLOVID, 00:00: 00:00 mouth in [place] EUA,) 150 00 :00 the Medical mg x 2- 100 morning Branc h mg tablet and 3 tablets in the evening. nirmatrelvi 2021- No [id number] 3{tbl} Take 3 [facility] r-ritonavir 7-13 10-21 tablets by i ty of (PAXLOVID, 00:00: 00:00 mouth in [place] EUA,) 150 00 :00 the Medical mg x 2- 100 morning Branc h mg tablet and 3 tablets in the evening. nirmatrelvi 2021- No [id number] 3{tbl} Take 3 [facility] r-ritonavir 7-13 10-21 tablets by i ty of (PAXLOVID, 00:00: 00:[place] [facility] 150 00 :00 the Medical mg x 2- 100 morning Branc h mg tablet and 3 tablets in the evening. meloxicam 2-0 Yes 7.5mg Take 1 [facility] rs 7.5 mg 7-12 tablet by ity of tablet 00:00: mouth in [place] 00 the Medical morning. Branch meloxicam 2-0 Yes 7.5mg Take 1 [facility] rs 7.5 mg 7-12 tablet by ity of tablet 00:00: mouth in [place] 00 the Medical morning. Branch meloxicam 2022-0 Yes 7.5mg Take 1 [facility] rs 7.5 mg 7-12 tablet by ity of tablet 00:00: mouth in [place] 00 the Medical morning. Branch meloxicam 2022-0 Yes 7.5mg Take 1 [facility] rs 7.5 mg 7-12 tablet by ity of tablet 00:00: mouth in [place] 00 the Medical morning. Branch meloxicam 2022-0 Yes 7.5mg Take 1 [facility] rs 7.5 mg 7-12 tablet by ity of tablet 00:00: mouth in [place] 00 the Medical morning. Branch meloxicam 2022-0 Yes 7.5mg Take 1 [facility] rs 7.5 mg 7-12 tablet by ity of tablet 00:00: mouth in [place] 00 the Medical morning. Branch meloxicam 2022-0 Yes 7.5mg Take 1 [facility] rs 7.5 mg 7-12 tablet by ity of tablet 00:00: mouth in [place] the Medical morning. Branch meloxicam 2022-0 Yes 7.5mg Take 1 [facility] rs 7.5 mg 7-12 tablet by ity of tablet 00:00: mouth in [place] the Medical morning. Branch meloxicam 2022-0 Yes 7.5mg Take 1 [facility] rs 7.5 mg 7-12 tablet by ity of tablet 00:00: mouth in [place] the Medical morning. Branch meloxicam 2022-0 Yes 7.5mg Take 1 [facility] rs 7.5 mg 7-12 tablet by ity of tablet 00:00: mouth in [place] the Medical morning. Branch meloxicam 2022-0 Yes 7.5mg Take 1 [facility] rs 7.5 mg 7-12 tablet by ity of tablet 00:00: mouth in [place] the Medical morning. Branch meloxicam 2022-0 Yes 7.5mg Take 1 [facility] rs 7.5 mg 7-12 tablet by ity of tablet 00:00: mouth in [place] the Medical morning. Branch meloxicam 2022-0 Yes 7.5mg Take 1 [facility] rs 7.5 mg 7-12 tablet by ity of tablet 00:00: mouth in [place] the Medical morning. Branch meloxicam 2022-0 Yes 7.5mg Take 1 [facility] rs 7.5 mg 7-12 tablet by ity of tablet 00:00: mouth in [place] the Medical morning. Branch meloxicam 2022-0 Yes 7.5mg Take 1 [facility] rs 7.5 mg 7-12 tablet by ity of tablet 00:00: mouth in [place] the Medical morning. Branch meloxicam 2022-0 Yes 7.5mg Take 1 [facility] rs 7.5 mg 7-12 tablet by ity of tablet 00:00: mouth in [place] the Medical morning. Branch meloxicam 2022-0 Yes 7.5mg Take 1 [facility] rs 7.5 mg 7-12 tablet by ity of tablet 00:00: mouth in [place] the Medical morning. Branch meloxicam 2022-0 Yes 7.5mg Take 1 [facility] rs 7.5 mg 7-12 tablet by ity of tablet 00:00: mouth in [place] the Medical morning. Branch meloxicam 2022-0 Yes 7.5mg Take 1 [facility] rs 7.5 mg 7-12 tablet by ity of tablet 00:00: mouth in [place] the Medical morning. Branch meloxicam 2022-0 Yes 7.5mg Take 1 [facility] rs 7.5 mg 7-12 tablet by ity of tablet 00:00: mouth in [place] the Medical morning. Branch meloxicam 2022-0 Yes 7.5mg Take 1 [facility] rs 7.5 mg 7-12 tablet by ity of tablet 00:00: mouth in [place] the Medical morning. Branch meloxicam 2022-0 Yes 7.5mg Take 1 [facility] rs 7.5 mg 7-12 tablet by ity of tablet 00:00: mouth in [place] the Medical morning. Branch meloxicam 2022-0 Yes 7.5mg Take 1 [facility] rs 7.5 mg 7-12 tablet by ity of tablet 00:00: mouth in [place] the Medical morning. Branch meloxicam 2022-0 Yes 7.5mg Take 1 [facility] rs 7.5 mg 7-12 tablet by ity of tablet 00:00: mouth in [place] the Medical morning. Branch meloxicam 2022-0 Yes 7.5mg Take 1 [facility] rs 7.5 mg 7-12 tablet by ity of tablet 00:00: mouth in [place] the Medical morning. Branch meloxicam 2022-0 Yes 7.5mg Take 1 [facility] rs 7.5 mg 7-12 tablet by ity of tablet 00:00: mouth in [place] the Medical morning. Branch meloxicam 2022-0 Yes 7.5mg Take 1 [facility] rs 7.5 mg 7-12 tablet by ity of tablet 00:00: mouth in [place] the Medical morning. Branch meloxicam 2022-0 Yes 7.5mg Take 1 [facility] rs 7.5 mg 7-12 tablet by ity of tablet 00:00: mouth in [place] the Medical morning. Branch meloxicam 2022-0 Yes 7.5mg Take 1 [facility] rs 7.5 mg 7-12 tablet by ity of tablet 00:00: mouth in [place] 00 the Medical morning. Branch meloxicam 2022-0 Yes 7.5mg Take 1 [facility] rs 7.5 mg 7-12 tablet by ity of tablet 00:00: mouth in [place] the Medical morning. Branch meloxicam 2022-0 Yes 7.5mg Take 1 [facility] rs 7.5 mg 7-12 tablet by ity of tablet 00:00: mouth in [place] 00 the Medical morning. Branch meloxicam 2022-0 Yes 7.5mg Take 1 [facility] rs 7.5 mg 7-12 tablet by ity of tablet 00:00: mouth in [place] the Medical morning. Branch meloxicam 2022-0 Yes 7.5mg Take 1 [facility] rs 7.5 mg 7-12 tablet by ity of tablet 00:00: mouth in [place] the Medical morning. Branch meloxicam 2022-0 Yes 7.5mg Take 1 [facility] rs 7.5 mg 7-12 tablet by ity of tablet 00:00: mouth in [place] the Medical morning. Branch meloxicam 2022-0 Yes 7.5mg Take 1 [facility] rs 7.5 mg 7-12 tablet by ity of tablet 00:00: mouth in [place] the Medical morning. Branch meloxicam 2022-0 Yes 7.5mg Take 1 [facility] rs 7.5 mg 7-12 tablet by ity of tablet 00:00: mouth in [place] the Medical morning. Branch meloxicam 2022-0 Yes 7.5mg Take 1 [facility] rs 7.5 mg 7-12 tablet by ity of tablet 00:00: mouth in [place] 00 the Medical morning. Branch meloxicam 2022-0 Yes 7.5mg Take 1 [facility] rs 7.5 mg 7-12 tablet by ity of tablet 00:00: mouth in [place] 00 the Medical morning. Branch meloxicam 2022-0 Yes 7.5mg Take 1 [facility] rs 7.5 mg 7-12 tablet by ity of tablet 00:00: mouth in [place] 00 the Medical morning. Branch meloxicam 2022-0 Yes 7.5mg Take 1 [facility] rs 7.5 mg 7-12 tablet by ity of tablet 00:00: mouth in [place] 00 the Medical morning. Branch meloxicam 2022-0 Yes 7.5mg Take 1 [facility] rs 7.5 mg 7-12 tablet by ity of tablet 00:00: mouth in [place] 00 the Medical morning. Branch meloxicam 2022-0 Yes 7.5mg Take 1 [facility] rs 7.5 mg 7-12 tablet by ity of tablet 00:00: mouth in [place] 00 the Medical morning. Branch meloxicam 2022-0 Yes 7.5mg Take 1 [facility] rs 7.5 mg 7-12 tablet by ity of tablet 00:00: mouth in [place] 00 the Medical morning. Branch meloxicam 2022-0 Yes 7.5mg Take 1 [facility] rs 7.5 mg 7-12 tablet by ity of tablet 00:00: mouth in [place] 00 the Medical morning. Branch meloxicam 2022-0 Yes 7.5mg Take 1 [facility] rs 7.5 mg 7-12 tablet by ity of tablet 00:00: mouth in [place] 00 the Medical morning. Branch meloxicam 2022-0 Yes 7.5mg Take 1 [facility] rs 7.5 mg 7-12 tablet by ity of tablet 00:00: mouth in [place] the Medical morning. Branch meloxicam 2022-0 Yes 7.5mg Take 1 [facility] rs 7.5 mg 7-12 tablet by ity of tablet 00:00: mouth in [place] the Medical morning. Branch meloxicam 2022-0 Yes 7.5mg Take 1 [facility] rs 7.5 mg 7-12 tablet by ity of tablet 00:00: mouth in [place] 00 the Medical morning. Branch meloxicam 2022-0 Yes 7.5mg Take 1 [facility] rs 7.5 mg 7-12 tablet by ity of tablet 00:00: mouth in [place] 00 the Medical morning. Branch meloxicam 2022-0 Yes 7.5mg Take 1 [facility] rs 7.5 mg 7-12 tablet by ity of tablet 00:00: mouth in [place] 00 the Medical morning. Branch meloxicam 2022-0 Yes 7.5mg Take 1 [facility] rs 7.5 mg 7-12 tablet by ity of tablet 00:00: mouth in [place] 00 the Medical morning. Branch meloxicam 2022-0 Yes 7.5mg Take 1 [facility] rs 7.5 mg 7-12 tablet by ity of tablet 00:00: mouth in [place] 00 the Medical morning. Branch meloxicam 2022-0 Yes 7.5mg Take 1 [facility] rs 7.5 mg 7-12 tablet by ity of tablet 00:00: mouth in [place] 00 the Medical morning. Branch meloxicam 2022-0 Yes 7.5mg Take 1 [facility] rs 7.5 mg 7-12 tablet by ity of tablet 00:00: mouth in [place] 00 the Medical morning. Branch meloxicam 2022-0 Yes 7.5mg Take 1 [facility] rs 7.5 mg 7-12 tablet by ity of tablet 00:00: mouth in [place] 00 the Medical morning. Branch meloxicam 2022-0 Yes 7.5mg Take 1 [facility] rs 7.5 mg 7-12 tablet by ity of tablet 00:00: mouth in [place] the Medical morning. Branch meloxicam 2022-0 Yes 7.5mg Take 1 [facility] rs 7.5 mg 7-12 tablet by ity of tablet 00:00: mouth in [place] the Medical morning. Branch meloxicam 2022-0 Yes 7.5mg Take 1 [facility] rs 7.5 mg 7-12 tablet by ity of tablet 00:00: mouth in [place] the Medical morning. Branch meloxicam 2022-0 Yes 7.5mg Take 1 [facility] rs 7.5 mg 7-12 tablet by ity of tablet 00:00: mouth in [place] the Medical morning. Branch meloxicam 2022-0 Yes 7.5mg Take 1 [facility] rs 7.5 mg 7-12 tablet by ity of tablet 00:00: mouth in [place] 00 the Medical morning. Branch meloxicam 2022-0 Yes 7.5mg Take 1 [facility] rs 7.5 mg 7-12 tablet by ity of tablet 00:00: mouth in [place] the Medical morning. Branch meloxicam 2022-0 Yes 7.5mg Take 1 [facility] rs 7.5 mg 7-12 tablet by ity of tablet 00:00: mouth in [place] 00 the Medical morning. Branch meloxicam 2022-0 Yes 7.5mg Take 1 [facility] rs 7.5 mg 7-12 tablet by ity of tablet 00:00: mouth in [place] 00 the Medical morning. Branch meloxicam 2022-0 Yes 7.5mg Take 1 [facility] rs 7.5 mg 7-12 tablet by ity of tablet 00:00: mouth in [place] 00 the Medical morning. Branch meloxicam 2022-0 Yes 7.5mg Take 1 [facility] rs 7.5 mg 7-12 tablet by ity of tablet 00:00: mouth in [place] 00 the Medical morning. Branch meloxicam 2022-0 Yes 7.5mg Take 1 [facility] rs 7.5 mg 7-12 tablet by ity of tablet 00:00: mouth in [place] 00 the Medical morning. Branch meloxicam 2022-0 Yes 7.5mg Take 1 [facility] rs 7.5 mg 7-12 tablet by ity of tablet 00:00: mouth in [place] 00 the Medical morning. Branch meloxicam 2022-0 Yes 7.5mg Take 1 [facility] rs 7.5 mg 7-12 tablet by ity of tablet 00:00: mouth in [place] the Medical morning. Branch meloxicam 2022-0 Yes 7.5mg Take 1 [facility] rs 7.5 mg 7-12 tablet by ity of tablet 00:00: mouth in [place] the Medical morning. Branch meloxicam 2022-0 Yes 7.5mg Take 1 [facility] rs 7.5 mg 7-12 tablet by ity of tablet 00:00: mouth in [place] the Medical morning. Branch meloxicam 2022-0 Yes 7.5mg Take 1 [facility] rs 7.5 mg 7-12 tablet by ity of tablet 00:00: mouth in [place] the Medical morning. Branch meloxicam 2022-0 Yes 7.5mg Take 1 [facility] rs 7.5 mg 7-12 tablet by ity of tablet 00:00: mouth in [place] the Medical morning. Branch meloxicam 2022-0 Yes 7.5mg Take 1 [facility] rs 7.5 mg 7-12 tablet by ity of tablet 00:00: mouth in [place] the Medical morning. Branch meloxicam 2022-0 Yes 7.5mg Take 1 [facility] rs 7.5 mg 7-12 tablet by ity of tablet 00:00: mouth in [place] 00 the Medical morning. Branch meloxicam 2022-0 Yes 7.5mg Take 1 [facility] rs 7.5 mg 7-12 tablet by ity of tablet 00:00: mouth in [place] 00 the Medical morning. Branch meloxicam 2022-0 Yes 7.5mg Take 1 [facility] rs 7.5 mg 7-12 tablet by ity of tablet 00:00: mouth in [place] 00 the Medical morning. Branch meloxicam Yes 7.5mg Take 1 [facility] rs 7.5 mg 7-12 tablet by ity of tablet 00:00: mouth in [place] 00 the Medical morning. Branch HYDROcodone Yes [id number] 1{tbl} Take 1 Un [...] Pain. Indication s: chronic pain albuterol Yes [id number] INHALE 2 [facility] 90 7-06 PUFFS BY ity of mcg/actuati 00:00: MOUTH [place] on inhaler 00 EVERY 6 Medica l HOURS Branch NEEDED FOR WHEEZING, SHORTNESS OF BREATH OR BRONCHOSPA SMS chlorhexidi Yes [id number] 15mL [place] and [facility] ne 0.12 % 7-06 spit out ity of mouthwash 00:00: 15 mL 2 [place] 00 (two) Medical times Branch daily. albuterol Yes [id number] INHALE 2 [facility] 90 7-06 PUFFS BY ity of mcg/actuati 00:00: MOUTH [place] on inhaler 00 EVERY 6 Medica l HOURS Branch NEEDED FOR WHEEZING, SHORTNESS OF BREATH OR BRONCHOSPA SMS chlorhexidi Yes [id number] 15mL [facility] ne 0.12 % 7-06 spit out ity of mouthwash 00:00: 15 mL 2 [place] [address] (two) Medical times Branch daily. chlorhexidi 0 Yes [id number] 15mL [facility] ne 0.12 % 7-06 spit out ity of mouthwash 00:00: 15 mL 2 [place] 00 (two) Medical times Branch daily. chlorhexidi 2022-0 Yes [id number] 15mL [facility] ne 0.12 % 7-06 spit out ity of mouthwash 00:00: 15 mL 2 [place] 00 (two) Medical times Branch daily. chlorhexidi 2022-0 Yes [id number] 15mL [facility] ne 0.12 % 7-06 spit out ity of mouthwash 00:00: 15 mL 2 [place] 00 (two) Medical times Branch daily. chlorhexidi 2022-0 Yes [id number] 15mL [facility] ne 0.12 % 7-06 spit out ity of mouthwash 00:00: 15 mL 2 [place] 00 (two) Medical times Branch daily. chlorhexidi 2022-0 Yes [id number] 15mL [facility] ne 0.12 % 7-06 spit out ity of mouthwash 00:00: 15 mL 2 [place] 00 (two) Medical times Branch daily. chlorhexidi 2022-0 Yes [id number] 15mL [facility] ne 0.12 % 7-06 spit out ity of mouthwash 00:00: 15 mL 2 [place] 00 (two) Medical times Branch daily. chlorhexidi 2022-0 Yes [id number] 15mL [facility] ne 0.12 % 7-06 spit out ity of mouthwash 00:00: 15 mL 2 [place] 00 (two) Medical times Branch daily. chlorhexidi 2022-0 Yes [id number] 15mL [facility] ne 0.12 % 7-06 spit out ity of mouthwash 00:00: 15 mL 2 [place] 00 (two) Medical times Branch daily. chlorhexidi 2022-0 Yes [id number] 15mL [facility] ne 0.12 % 7-06 spit out ity of mouthwash 00:00: 15 mL 2 [place] 00 (two) Medical times Branch daily. chlorhexidi 2022-0 Yes [id number] 15mL [facility] ne 0.12 % 7-06 spit out ity of mouthwash 00:00: 15 mL 2 [place] 00 (two) Medical times Branch daily. chlorhexidi 2022-0 Yes [id number] 15mL [facility] ne 0.12 % 7-06 spit out ity of mouthwash 00:00: 15 mL 2 [place] 00 (two) Medical times Branch daily. chlorhexidi 2022-0 Yes [id number] 15mL [facility] ne 0.12 % 7-06 spit out ity of mouthwash 00:00: 15 mL 2 [place] 00 (two) Medical times Branch daily. chlorhexidi 2022-0 Yes [id number] 15mL [facility] ne 0.12 % 7-06 spit out ity of mouthwash 00:00: 15 mL 2 [place] 00 (two) Medical times Branch daily. chlorhexidi 2022-0 Yes [id number] 15mL [facility] ne 0.12 % 7-06 spit out ity of mouthwash 00:00: 15 mL 2 [place] 00 (two) Medical times Branch daily. chlorhexidi 2022-0 Yes [id number] 15mL [facility] ne 0.12 % 7-06 spit out ity of mouthwash 00:00: 15 mL 2 [place] 00 (two) Medical times Branch daily. chlorhexidi 2022-0 Yes [id number] 15mL [facility] ne 0.12 % 7-06 spit out ity of mouthwash 00:00: 15 mL 2 [place] 00 (two) Medical times Branch daily. chlorhexidi 2022-0 Yes [id number] 15mL [facility] ne 0.12 % 7-06 spit out ity of mouthwash 00:00: 15 mL 2 [place] 00 (two) Medical times Branch daily. chlorhexidi 2022-0 Yes [id number] 15mL [facility] ne 0.12 % 7-06 spit out ity of mouthwash 00:00: 15 mL 2 [place] 00 (two) Medical times Branch daily. chlorhexidi 2022-0 Yes [id number] 15mL [facility] ne 0.12 % 7-06 spit out ity of mouthwash 00:00: 15 mL 2 [place] 00 (two) Medical times Branch daily. chlorhexidi 2022-0 Yes [id number] 15mL [facility] ne 0.12 % 7-06 spit out ity of mouthwash 00:00: 15 mL 2 [place] 00 (two) Medical times Branch daily. chlorhexidi 2022-0 Yes [id number] 15mL [facility] ne 0.12 % 7-06 spit out ity of mouthwash 00:00: 15 mL 2 [place] 00 (two) Medical times Branch daily. chlorhexidi 2022-0 Yes [id number] 15mL [facility] ne 0.12 % 7-06 spit out ity of mouthwash 00:00: 15 mL 2 [place] 00 (two) Medical times Branch daily. chlorhexidi 2022-0 Yes [id number] 15mL [facility] ne 0.12 % 7-06 spit out ity of mouthwash 00:00: 15 mL 2 [place] 00 (two) Medical times Branch daily. chlorhexidi 2022-0 Yes [id number] 15mL [facility] ne 0.12 % 7-06 spit out ity of mouthwash 00:00: 15 mL 2 [place] 00 (two) Medical times Branch daily. chlorhexidi 2022-0 Yes [id number] 15mL [facility] ne 0.12 % 7-06 spit out ity of mouthwash 00:00: 15 mL 2 [place] 00 (two) Medical times Branch daily. chlorhexidi 2022-0 Yes [id number] 15mL [facility] ne 0.12 % 7-06 spit out ity of mouthwash 00:00: 15 mL 2 [place] 00 (two) Medical times Branch daily. chlorhexidi 2-0 Yes [id number] 15mL [facility] ne 0.12 % 7-06 spit out ity of mouthwash 00:00: 15 mL 2 [place] 00 (two) Medical times Branch daily. chlorhexidi 2022-0 Yes [id number] 15mL [facility] ne 0.12 % 7-06 spit out ity of mouthwash 00:00: 15 mL 2 [place] 00 (two) Medical times Branch daily. chlorhexidi 2022-0 Yes [id number] 15mL [facility] ne 0.12 % 7-06 spit out ity of mouthwash 00:00: 15 mL 2 [place] 00 (two) Medical times Branch daily. chlorhexidi 2022-0 Yes [id number] 15mL [facility] ne 0.12 % 7-06 spit out ity of mouthwash 00:00: 15 mL 2 [place] 00 (two) Medical times Branch daily. chlorhexidi 2-0 Yes [id number] 15mL [facility] ne 0.12 % 7-06 spit out ity of mouthwash 00:00: 15 mL 2 [place] 00 (two) Medical times Branch daily. chlorhexidi 2022-0 Yes [id number] 15mL [facility] ne 0.12 % 7-06 spit out ity of mouthwash 00:00: 15 mL 2 [place] 00 (two) Medical times Branch daily. chlorhexidi 2022-0 Yes [id number] 15mL [facility] ne 0.12 % 7-06 spit out ity of mouthwash 00:00: 15 mL 2 [place] 00 (two) Medical times Branch daily. chlorhexidi 2022-0 Yes [id number] 15mL [facility] ne 0.12 % 7-06 spit out ity of mouthwash 00:00: 15 mL 2 [place] 00 (two) Medical times Branch daily. chlorhexidi 2022-0 Yes [id number] 15mL [facility] ne 0.12 % 7-06 spit out ity of mouthwash 00:00: 15 mL 2 [place] 00 (two) Medical times Branch daily. chlorhexidi 2022-0 Yes [id number] 15mL [facility] ne 0.12 % 7-06 spit out ity of mouthwash 00:00: 15 mL 2 [place] 00 (two) Medical times Branch daily. chlorhexidi 2022-0 Yes [id number] 15mL [facility] ne 0.12 % 7-06 spit out ity of mouthwash 00:00: 15 mL 2 [place] 00 (two) Medical times Branch daily. chlorhexidi 2022-0 Yes [id number] 15mL [facility] ne 0.12 % 7-06 spit out ity of mouthwash 00:00: 15 mL 2 [place] 00 (two) Medical times Branch daily. chlorhexidi 2022-0 Yes [id number] 15mL [facility] ne 0.12 % 7-06 spit out ity of mouthwash 00:00: 15 mL 2 [place] 00 (two) Medical times Branch daily. chlorhexidi 2022-0 Yes [id number] 15mL [facility] ne 0.12 % 7-06 spit out ity of mouthwash 00:00: 15 mL 2 [place] 00 (two) Medical times Branch daily. chlorhexidi 2022-0 Yes [id number] 15mL [facility] ne 0.12 % 7-06 spit out ity of mouthwash 00:00: 15 mL 2 [place] 00 (two) Medical times Branch daily. chlorhexidi 2022-0 Yes [id number] 15mL [facility] ne 0.12 % 7-06 spit out ity of mouthwash 00:00: 15 mL 2 [place] 00 (two) Medical times Branch daily. chlorhexidi 2022-0 Yes [id number] 15mL [facility] ne 0.12 % 7-06 spit out ity of mouthwash 00:00: 15 mL 2 [place] 00 (two) Medical times Branch daily. chlorhexidi 2022-0 Yes [id number] 15mL [facility] ne 0.12 % 7-06 spit out ity of mouthwash 00:00: 15 mL 2 [place] 00 (two) Medical times Branch daily. chlorhexidi 2022-0 Yes [id number] 15mL [facility] ne 0.12 % 7-06 spit out ity of mouthwash 00:00: 15 mL 2 [place] 00 (two) Medical times Branch daily. chlorhexidi 2022-0 Yes [id number] 15mL [facility] ne 0.12 % 7-06 spit out ity of mouthwash 00:00: 15 mL 2 [place] 00 (two) Medical times Branch daily. chlorhexidi 2022-0 Yes [id number] 15mL [facility] ne 0.12 % 7-06 spit out ity of mouthwash 00:00: 15 mL 2 [place] 00 (two) Medical times Branch daily. chlorhexidi 2022-0 Yes [id number] 15mL [facility] ne 0.12 % 7-06 spit out ity of mouthwash 00:00: 15 mL 2 [place] 00 (two) Medical times Branch daily. chlorhexidi 2022-0 Yes [id number] 15mL [facility] ne 0.12 % 7-06 spit out ity of mouthwash 00:00: 15 mL 2 [place] 00 (two) Medical times Branch daily. chlorhexidi 2022-0 Yes [id number] 15mL [facility] ne 0.12 % 7-06 spit out ity of mouthwash 00:00: 15 mL 2 [place] 00 (two) Medical times Branch daily. chlorhexidi 2022-0 Yes [id number] 15mL [facility] ne 0.12 % 7-06 spit out ity of mouthwash 00:00: 15 mL 2 [place] 00 (two) Medical times Branch daily. chlorhexidi 2022-0 Yes [id number] 15mL [facility] ne 0.12 % 7-06 spit out ity of mouthwash 00:00: 15 mL 2 [place] 00 (two) Medical times Branch daily. chlorhexidi 2022-0 Yes [id number] 15mL [facility] ne 0.12 % 7-06 spit out ity of mouthwash 00:00: 15 mL 2 [place] 00 (two) Medical times Branch daily. chlorhexidi 2022-0 Yes [id number] 15mL [facility] ne 0.12 % 7-06 spit out ity of mouthwash 00:00: 15 mL 2 [place] 00 (two) Medical times Branch daily. chlorhexidi 2022-0 Yes [id number] 15mL [facility] ne 0.12 % 7-06 spit out ity of mouthwash 00:00: 15 mL 2 [place] 00 (two) Medical times Branch daily. chlorhexidi 2022-0 Yes [id number] 15mL [facility] ne 0.12 % 7-06 spit out ity of mouthwash 00:00: 15 mL 2 [place] 00 (two) Medical times Branch daily. chlorhexidi 2022-0 Yes [id number] 15mL [facility] ne 0.12 % 7-06 spit out ity of mouthwash 00:00: 15 mL 2 [place] 00 (two) Medical times Branch daily. chlorhexidi 2022-0 Yes [id number] 15mL [facility] ne 0.12 % 7-06 spit out ity of mouthwash 00:00: 15 mL 2 [place] 00 (two) Medical times Branch daily. chlorhexidi 2022-0 Yes [id number] 15mL [facility] ne 0.12 % 7-06 spit out ity of mouthwash 00:00: 15 mL 2 [place] 00 (two) Medical times Branch daily. chlorhexidi 2022-0 Yes [id number] 15mL [facility] ne 0.12 % 7-06 spit out ity of mouthwash 00:00: 15 mL 2 [place] 00 (two) Medical times Branch daily. chlorhexidi 2022-0 Yes [id number] 15mL [facility] ne 0.12 % 7-06 spit out ity of mouthwash 00:00: 15 mL 2 [place] 00 (two) Medical times Branch daily. chlorhexidi 2022-0 Yes [id number] 15mL [facility] ne 0.12 % 7-06 spit out ity of mouthwash 00:00: 15 mL 2 [place] 00 (two) Medical times Branch daily. chlorhexidi 2022-0 Yes [id number] 15mL [facility] ne 0.12 % 7-06 spit out ity of mouthwash 00:00: 15 mL 2 [place] 00 (two) Medical times Branch daily. chlorhexidi 2022-0 Yes [id number] 15mL [facility] ne 0.12 % 7-06 spit out ity of mouthwash 00:00: 15 mL 2 [place] 00 (two) Medical times Branch daily. chlorhexidi 2022-0 Yes [id number] 15mL [facility] ne 0.12 % 7-06 spit out ity of mouthwash 00:00: 15 mL 2 [place] 00 (two) Medical times Branch daily. chlorhexidi 2022-0 Yes [id number] 15mL [facility] ne 0.12 % 7-06 spit out ity of mouthwash 00:00: 15 mL 2 [place] 00 (two) Medical times Branch daily. chlorhexidi 2022-0 Yes [id number] 15mL [facility] ne 0.12 % 7-06 spit out ity of mouthwash 00:00: 15 mL 2 [place] 00 (two) Medical times Branch daily. chlorhexidi 2022-0 Yes [id number] 15mL [facility] ne 0.12 % 7-06 spit out ity of mouthwash 00:00: 15 mL 2 [place] 00 (two) Medical times Branch daily. chlorhexidi 2022-0 Yes [id number] 15mL [facility] ne 0.12 % 7-06 spit out ity of mouthwash 00:00: 15 mL 2 [place] 00 (two) Medical times Branch daily. chlorhexidi 2021-0 Yes [id number] 15mL [facility] ne 0.12 % 7-06 spit out ity of mouthwash 00:00: 15 mL 2 [place] 00 (two) Medical times Branch daily. chlorhexidi 2021-0 Yes [id number] 15mL [facility] ne 0.12 % 7-06 spit out ity of mouthwash 00:00: 15 mL 2 [place] 00 (two) Medical times Branch daily. chlorhexidi 2021-0 Yes [id number] 15mL [facility] ne 0.12 % 7-06 spit out ity of mouthwash 00:00: 15 mL 2 [place] 00 (two) Medical times Branch daily. chlorhexidi 2021-0 Yes [id number] 15mL [facility] ne 0.12 % 7-06 spit out ity of mouthwash 00:00: 15 mL 2 [place] 00 (two) Medical times Branch daily. chlorhexidi 2021-0 Yes [id number] 15mL [facility] ne 0.12 % 7-06 spit out ity of mouthwash 00:00: 15 mL 2 [place] 00 (two) Medical times Branch daily. chlorhexidi 2021-0 Yes [id number] 15mL [facility] ne 0.12 % 7-06 spit out ity of mouthwash 00:00: 15 mL 2 [place] 00 (two) Medical times Branch daily. albuterol 2021- No [id number] INHALE 2 [facility] 90 02-05 08-24 PUFFS BY ity of mcg/actuati 00:00: 00:00 MOUTH [place] on inhaler 00 :00 EVERY 6 Medica l HOURS Branch NEEDED FOR WHEEZING, SHORTNESS OF BREATH OR BRONCHOSPA SMS Insulin 2021-0 Yes [id number] [facility] [place], 02-02 DIRECTED ity of Disposable, 00:00: FOUR TIMES [place] (BD 00 DAILY. [facility] Medical ULTRAFINE E11.9 Branch III MINI PEN) 31 gauge x 3/16" [facility] Insulin 2021-0 Yes [id number] USE [facility] [place], 02-02 DIRECTED ity of Disposable, 00:00: FOUR TIMES [place] (BD 00 DAILY. Dx Medical ULTRAFINE E11.9 Branch III MINI PEN) 31 gauge x 3/16" Ndle Insulin 2022-0 Yes [id number] USE [facility] [place], 7 DIRECTED ity of Disposable, 00:00: FOUR TIMES [place] (BD 00 DAILY. Dx Medical ULTRAFINE E11.9 Branch III MINI PEN) 31 gauge x 3/16" Ndle Insulin 2022-0 Yes [id number] USE [facility] [place], 7 DIRECTED ity of Disposable, 00:00: FOUR TIMES [place] (BD 00 DAILY. Dx Medical ULTRAFINE E11.9 Branch III MINI PEN) 31 gauge x 3/16" Ndle Insulin 2022-0 Yes [id number] USE [facility] [place], 7 DIRECTED ity of Disposable, 00:00: FOUR TIMES [place] (BD 00 DAILY. Dx Medical ULTRAFINE E11.9 Branch III MINI PEN) 31 gauge x 3/16" Ndle Insulin 2022-0 Yes [id number] USE [facility] [place], 7 DIRECTED ity of Disposable, 00:00: FOUR TIMES [place] (BD 00 DAILY. Dx Medical ULTRAFINE E11.9 Branch III MINI PEN) 31 gauge x 3/16" Ndle Insulin 2022-0 Yes [id number] USE [facility] [place], 7 DIRECTED ity of Disposable, 00:00: FOUR TIMES [place] (BD 00 DAILY. Dx Medical ULTRAFINE E11.9 Branch III MINI PEN) 31 gauge x 3/16" Ndle Insulin 2022-0 Yes [id number] USE [facility] [place], 7 DIRECTED ity of Disposable, 00:00: FOUR TIMES [place] (BD 00 DAILY. Dx Medical ULTRAFINE E11.9 Branch III MINI PEN) 31 gauge x 3/16" Ndle Insulin 2022-0 Yes [id number] USE [facility] [place], 7 DIRECTED ity of Disposable, 00:00: FOUR TIMES [place] (BD 00 DAILY. Dx Medical ULTRAFINE E11.9 Branch III MINI PEN) 31 gauge x 3/16" Ndle Insulin 2022-0 Yes [id number] USE [facility] [place], 7 DIRECTED ity of Disposable, 00:00: FOUR TIMES [place] (BD 00 DAILY. Dx Medical ULTRAFINE E11.9 Branch III MINI PEN) 31 gauge x 3/16" Ndle Insulin 2022-0 Yes [id number] USE [facility] [place], 02-02 DIRECTED ity of Disposable, 00:00: FOUR TIMES [place] (BD 00 DAILY. Dx Medical ULTRAFINE E11.9 Branch III MINI PEN) 31 gauge x 3/16" Ndle Insulin 2022-0 Yes [id number] USE [facility] [place], 02-02 DIRECTED ity of Disposable, 00:00: FOUR TIMES [place] (BD 00 DAILY. Dx Medical ULTRAFINE E11.9 Branch III MINI PEN) 31 gauge x 3/16" Ndle Insulin 2022-0 Yes [id number] USE [facility] [place], 02-02 DIRECTED ity of Disposable, 00:00: FOUR TIMES [place] (BD 00 DAILY. Dx Medical ULTRAFINE E11.9 Branch III MINI PEN) 31 gauge x 3/16" Ndle Insulin 2022-0 Yes [id number] USE [facility] [place], 02-02 DIRECTED ity of Disposable, 00:00: FOUR TIMES [place] (BD 00 DAILY. Dx Medical ULTRAFINE E11.9 Branch III MINI PEN) 31 gauge x 3/16" Ndle Insulin 2022-0 Yes [id number] USE [facility] [place], 02-02 DIRECTED ity of Disposable, 00:00: FOUR TIMES [place] (BD 00 DAILY. Dx Medical ULTRAFINE E11.9 Branch III MINI PEN) 31 gauge x 3/16" Ndle Insulin 2022-0 Yes [id number] USE [facility] [place], 02-02 DIRECTED ity of Disposable, 00:00: FOUR TIMES [place] (BD 00 DAILY. Dx Medical ULTRAFINE E11.9 Branch III MINI PEN) 31 gauge x 3/16" Ndle Insulin 2022-0 Yes [id number] USE [facility] [place], 02-02 DIRECTED ity of Disposable, 00:00: FOUR TIMES [place] (BD 00 DAILY. Dx Medical ULTRAFINE E11.9 Branch III MINI PEN) 31 gauge x 3/16" Ndle Insulin 2022-0 Yes [id number] USE [facility] [place], 02-02 DIRECTED ity of Disposable, 00:00: FOUR TIMES [place] (BD 00 DAILY. Dx Medical ULTRAFINE E11.9 Branch III MINI PEN) 31 gauge x 3/16" Ndle Insulin 2022-0 Yes [id number] USE [facility] [place], 02-02 DIRECTED ity of Disposable, 00:00: FOUR TIMES [place] (BD 00 DAILY. Dx Medical ULTRAFINE E11.9 Branch III MINI PEN) 31 gauge x 3/16" Ndle Insulin 2022-0 Yes [id number] USE [facility] [place], 7 DIRECTED ity of Disposable, 00:00: FOUR TIMES [place] (BD 00 DAILY. Dx Medical ULTRAFINE E11.9 Branch III MINI PEN) 31 gauge x 3/16" Ndle Insulin 2022-0 Yes [id number] USE [facility] [place], 02-02 DIRECTED ity of Disposable, 00:00: FOUR TIMES [place] (BD 00 DAILY. Dx Medical ULTRAFINE E11.9 Branch III MINI PEN) 31 gauge x 3/16" Ndle Insulin 2022-0 Yes [id number] USE [facility] [place], 02-02 DIRECTED ity of Disposable, 00:00: FOUR TIMES [place] (BD 00 DAILY. Dx Medical ULTRAFINE E11.9 Branch III MINI PEN) 31 gauge x 3/16" Ndle Insulin 2022-0 Yes [id number] USE [facility] [place], 02-02 DIRECTED ity of Disposable, 00:00: FOUR TIMES [place] (BD 00 DAILY. Dx Medical ULTRAFINE E11.9 Branch III MINI PEN) 31 gauge x 3/16" Ndle Insulin 2022-0 Yes [id number] USE [facility] [place], 02-02 DIRECTED ity of Disposable, 00:00: FOUR TIMES [place] (BD 00 DAILY. Dx Medical ULTRAFINE E11.9 Branch III MINI PEN) 31 gauge x 3/16" Ndle Insulin 2022-0 Yes [id number] USE [facility] [place], 02-02 DIRECTED ity of Disposable, 00:00: FOUR TIMES [place] (BD 00 DAILY. Dx Medical ULTRAFINE E11.9 Branch III MINI PEN) 31 gauge x 3/16" Ndle Insulin 2022-0 Yes [id number] USE [facility] [place], 02-02 DIRECTED ity of Disposable, 00:00: FOUR TIMES [place] (BD 00 DAILY. Dx Medical ULTRAFINE E11.9 Branch III MINI PEN) 31 gauge x 3/16" Ndle Insulin 2022-0 Yes [id number] USE [facility] [place], 02-02 DIRECTED ity of Disposable, 00:00: FOUR TIMES [place] (BD 00 DAILY. Dx Medical ULTRAFINE E11.9 Branch III MINI PEN) 31 gauge x 3/16" Ndle Insulin 2022-0 Yes [id number] USE [facility] [place], 02-02 DIRECTED ity of Disposable, 00:00: FOUR TIMES [place] (BD 00 DAILY. Dx Medical ULTRAFINE E11.9 Branch III MINI PEN) 31 gauge x 3/16" Ndle Insulin 2022-0 Yes [id number] USE [facility] [place], 02-02 DIRECTED ity of Disposable, 00:00: FOUR TIMES [place] (BD 00 DAILY. Dx Medical ULTRAFINE E11.9 Branch III MINI PEN) 31 gauge x 3/16" Ndle Insulin 2022-0 Yes [id number] USE [facility] [place], 02-02 DIRECTED ity of Disposable, 00:00: FOUR TIMES [place] (BD 00 DAILY. Dx Medical ULTRAFINE E11.9 Branch III MINI PEN) 31 gauge x 3/16" Ndle Insulin 2022-0 Yes [id number] USE [facility] [place], 02-02 DIRECTED ity of Disposable, 00:00: FOUR TIMES [place] (BD 00 DAILY. Dx Medical ULTRAFINE E11.9 Branch III MINI PEN) 31 gauge x 3/16" Ndle Insulin 2022-0 Yes [id number] USE [facility] [place], 02-02 DIRECTED ity of Disposable, 00:00: FOUR TIMES [place] (BD 00 DAILY. Dx Medical ULTRAFINE E11.9 Branch III MINI PEN) 31 gauge x 3/16" Ndle Insulin 2022-0 Yes [id number] USE [facility] [place], 02-02 DIRECTED ity of Disposable, 00:00: FOUR TIMES [place] (BD 00 DAILY. Dx Medical ULTRAFINE E11.9 Branch III MINI PEN) 31 gauge x 3/16" Ndle Insulin 2022-0 Yes [id number] USE [facility] [place], 02-02 DIRECTED ity of Disposable, 00:00: FOUR TIMES [place] (BD 00 DAILY. Dx Medical ULTRAFINE E11.9 Branch III MINI PEN) 31 gauge x 3/16" Ndle Insulin 2022-0 Yes [id number] USE [facility] [place], 02-02 DIRECTED ity of Disposable, 00:00: FOUR TIMES [place] (BD 00 DAILY. Dx Medical ULTRAFINE E11.9 Branch III MINI PEN) 31 gauge x 3/16" Ndle Insulin 2022-0 Yes [id number] USE [facility] [place], 02-02 DIRECTED ity of Disposable, 00:00: FOUR TIMES [place] (BD 00 DAILY. Dx Medical ULTRAFINE E11.9 Branch III MINI PEN) 31 gauge x 3/16" Ndle Insulin 2022-0 Yes [id number] USE [facility] [place], 02-02 DIRECTED ity of Disposable, 00:00: FOUR TIMES [place] (BD 00 DAILY. Dx Medical ULTRAFINE E11.9 Branch III MINI PEN) 31 gauge x 3/16" Ndle Insulin 2022-0 Yes [id number] USE [facility] [place], 02-02 DIRECTED ity of Disposable, 00:00: FOUR TIMES [place] (BD 00 DAILY. Dx Medical ULTRAFINE E11.9 Branch III MINI PEN) 31 gauge x 3/16" Ndle Insulin 2022-0 Yes [id number] USE [facility] [place], 02-02 DIRECTED ity of Disposable, 00:00: FOUR TIMES [place] (BD 00 DAILY. Dx Medical ULTRAFINE E11.9 Branch III MINI PEN) 31 gauge x 3/16" Ndle Insulin 2022-0 Yes [id number] USE [facility] [place], 02-02 DIRECTED ity of Disposable, 00:00: FOUR TIMES [place] (BD 00 DAILY. Dx Medical ULTRAFINE E11.9 Branch III MINI PEN) 31 gauge x 3/16" Ndle Insulin 2022-0 Yes [id number] USE [facility] [place], 02-02 DIRECTED ity of Disposable, 00:00: FOUR TIMES [place] (BD 00 DAILY. Dx Medical ULTRAFINE E11.9 Branch III MINI PEN) 31 gauge x 3/16" Ndle Insulin 2022-0 Yes [id number] USE [facility] [place], 02-02 DIRECTED ity of Disposable, 00:00: FOUR TIMES [place] (BD 00 DAILY. Dx Medical ULTRAFINE E11.9 Branch III MINI PEN) 31 gauge x 3/16" Ndle Insulin 2022-0 Yes [id number] USE [facility] [place], 02-02 DIRECTED ity of Disposable, 00:00: FOUR TIMES [place] (BD 00 DAILY. Dx Medical ULTRAFINE E11.9 Branch III MINI PEN) 31 gauge x 3/16" Ndle Insulin 2022-0 Yes [id number] USE [facility] [place], 02-02 DIRECTED ity of Disposable, 00:00: FOUR TIMES [place] (BD 00 DAILY. Dx Medical ULTRAFINE E11.9 Branch III MINI PEN) 31 gauge x 3/16" Ndle Insulin 2022-0 Yes [id number] USE [facility] [place], 02-02 DIRECTED ity of Disposable, 00:00: FOUR TIMES [place] (BD 00 DAILY. Dx Medical ULTRAFINE E11.9 Branch III MINI PEN) 31 gauge x 3/16" Ndle Insulin 2022-0 Yes [id number] USE [facility] [place], 7 DIRECTED ity of Disposable, 00:00: FOUR TIMES [place] (BD 00 DAILY. Dx Medical ULTRAFINE E11.9 Branch III MINI PEN) 31 gauge x 3/16" Ndle Insulin 2022-0 Yes [id number] USE [facility] [place], 7 DIRECTED ity of Disposable, 00:00: FOUR TIMES [place] (BD 00 DAILY. Dx Medical ULTRAFINE E11.9 Branch III MINI PEN) 31 gauge x 3/16" Ndle Insulin 2022-0 Yes [id number] USE [facility] [place], 7 DIRECTED ity of Disposable, 00:00: FOUR TIMES [place] (BD 00 DAILY. Dx Medical ULTRAFINE E11.9 Branch III MINI PEN) 31 gauge x 3/16" Ndle Insulin 2022-0 Yes [id number] USE [facility] [place], 7 DIRECTED ity of Disposable, 00:00: FOUR TIMES [place] (BD 00 DAILY. Dx Medical ULTRAFINE E11.9 Branch III MINI PEN) 31 gauge x 3/16" Ndle Insulin 2022-0 Yes [id number] USE [facility] [place], 7 DIRECTED ity of Disposable, 00:00: FOUR TIMES [place] (BD 00 DAILY. Dx Medical ULTRAFINE E11.9 Branch III MINI PEN) 31 gauge x 3/16" Ndle Insulin 2022-0 Yes [id number] USE [facility] [place], 7 DIRECTED ity of Disposable, 00:00: FOUR TIMES [place] (BD 00 DAILY. Dx Medical ULTRAFINE E11.9 Branch III MINI PEN) 31 gauge x 3/16" Ndle Insulin 2022-0 Yes [id number] USE [facility] [place], 7 DIRECTED ity of Disposable, 00:00: FOUR TIMES [place] (BD 00 DAILY. Dx Medical ULTRAFINE E11.9 Branch III MINI PEN) 31 gauge x 3/16" Ndle Insulin 2022-0 Yes [id number] USE [facility] [place], 7 DIRECTED ity of Disposable, 00:00: FOUR TIMES [place] (BD 00 DAILY. Dx Medical ULTRAFINE E11.9 Branch III MINI PEN) 31 gauge x 3/16" Ndle Insulin 2022-0 Yes [id number] USE [facility] [place], 7-03 DIRECTED ity of Disposable, 00:00: FOUR TIMES [place] (BD 00 DAILY. Dx Medical ULTRAFINE E11.9 Branch III MINI PEN) 31 gauge x 3/16" Ndle Insulin 2022-0 Yes [id number] USE [facility] [place], 02-02 DIRECTED ity of Disposable, 00:00: FOUR TIMES [place] (BD 00 DAILY. Dx Medical ULTRAFINE E11.9 Branch III MINI PEN) 31 gauge x 3/16" Ndle Insulin 2022-0 Yes [id number] USE [facility] [place], 02-02 DIRECTED ity of Disposable, 00:00: FOUR TIMES [place] (BD 00 DAILY. Dx Medical ULTRAFINE E11.9 Branch III MINI PEN) 31 gauge x 3/16" Ndle Insulin 2022-0 Yes [id number] USE [facility] [place], 02-02 DIRECTED ity of Disposable, 00:00: FOUR TIMES [place] (BD 00 DAILY. Dx Medical ULTRAFINE E11.9 Branch III MINI PEN) 31 gauge x 3/16" Ndle Insulin 2022-0 Yes [id number] USE [facility] [place], 02-02 DIRECTED ity of Disposable, 00:00: FOUR TIMES [place] (BD 00 DAILY. Dx Medical ULTRAFINE E11.9 Branch III MINI PEN) 31 gauge x 3/16" Ndle Insulin 2022-0 Yes [id number] USE [facility] [place], 02-02 DIRECTED ity of Disposable, 00:00: FOUR TIMES [place] (BD 00 DAILY. Dx Medical ULTRAFINE E11.9 Branch III MINI PEN) 31 gauge x 3/16" Ndle Insulin 2022-0 Yes [id number] USE [facility] [place], 02-02 DIRECTED ity of Disposable, 00:00: FOUR TIMES [place] (BD 00 DAILY. Dx Medical ULTRAFINE E11.9 Branch III MINI PEN) 31 gauge x 3/16" Ndle Insulin 2022-0 Yes [id number] USE [facility] [place], 02-02 DIRECTED ity of Disposable, 00:00: FOUR TIMES [place] (BD 00 DAILY. Dx Medical ULTRAFINE E11.9 Branch III MINI PEN) 31 gauge x 3/16" Ndle Insulin 2022-0 Yes [id number] USE [facility] [place], 02-02 DIRECTED ity of Disposable, 00:00: FOUR TIMES [place] (BD 00 DAILY. Dx Medical ULTRAFINE E11.9 Branch III MINI PEN) 31 gauge x 3/16" Ndle Insulin 2022-0 Yes [id number] USE [facility] [place], 02-02 DIRECTED ity of Disposable, 00:00: FOUR TIMES [place] (BD 00 DAILY. Dx Medical ULTRAFINE E11.9 Branch III MINI PEN) 31 gauge x 3/16" Ndle Insulin 2022-0 Yes [id number] USE [facility] [place], 02-02 DIRECTED ity of Disposable, 00:00: FOUR TIMES [place] (BD 00 DAILY. Dx Medical ULTRAFINE E11.9 Branch III MINI PEN) 31 gauge x 3/16" Ndle Insulin 2022-0 Yes [id number] USE [facility] [place], 02-02 DIRECTED ity of Disposable, 00:00: FOUR TIMES [place] (BD 00 DAILY. Dx Medical ULTRAFINE E11.9 Branch III MINI PEN) 31 gauge x 3/16" Ndle Insulin 2022-0 Yes [id number] USE [facility] [place], 02-02 DIRECTED ity of Disposable, 00:00: FOUR TIMES [place] (BD 00 DAILY. Dx Medical ULTRAFINE E11.9 Branch III MINI PEN) 31 gauge x 3/16" Ndle Insulin 2022-0 Yes [id number] USE [facility] [place], 02-02 DIRECTED ity of Disposable, 00:00: FOUR TIMES [place] (BD 00 DAILY. Dx Medical ULTRAFINE E11.9 Branch III MINI PEN) 31 gauge x 3/16" Ndle Insulin 2022-0 Yes [id number] USE [facility] [place], 02-02 DIRECTED ity of Disposable, 00:00: FOUR TIMES [place] (BD 00 DAILY. Dx Medical ULTRAFINE E11.9 Branch III MINI PEN) 31 gauge x 3/16" Ndle Insulin 2022-0 Yes [id number] USE [facility] [place], 02-02 DIRECTED ity of Disposable, 00:00: FOUR TIMES [place] (BD 00 DAILY. Dx Medical ULTRAFINE E11.9 Branch III MINI PEN) 31 gauge x 3/16" Ndle Insulin 2022-0 Yes [id number] USE [facility] [place], 02-02 DIRECTED ity of Disposable, 00:00: FOUR TIMES [place] (BD 00 DAILY. Dx Medical ULTRAFINE E11.9 Branch III MINI PEN) 31 gauge x 3/16" Ndle Insulin 2022-0 Yes [id number] USE [facility] [place], 02-02 DIRECTED ity of Disposable, 00:00: FOUR TIMES [place] (BD 00 DAILY. Dx Medical ULTRAFINE E11.9 Branch III MINI PEN) 31 gauge x 3/16" Ndle Insulin 2022-0 Yes [id number] USE [facility] [place], 7 DIRECTED ity of Disposable, 00:00: FOUR TIMES [place] (BD 00 DAILY. Dx Medical ULTRAFINE E11.9 Branch III MINI PEN) 31 gauge x 3/16" Ndle Insulin 2022-0 Yes [id number] USE [facility] [place], 7 DIRECTED ity of Disposable, 00:00: FOUR TIMES [place] (BD 00 DAILY. Dx Medical ULTRAFINE E11.9 Branch III MINI PEN) 31 gauge x 3/16" Ndle Insulin 2022-0 Yes [id number] USE [facility] [place], 7 DIRECTED ity of Disposable, 00:00: FOUR TIMES [place] (BD 00 DAILY. Dx Medical ULTRAFINE E11.9 Branch III MINI PEN) 31 gauge x 3/16" Ndle Insulin 2022-0 Yes [id number] USE [facility] [place], 7 DIRECTED ity of Disposable, 00:00: FOUR TIMES [place] (BD 00 DAILY. Dx Medical ULTRAFINE E11.9 Branch III MINI PEN) 31 gauge x 3/16" Ndle Insulin 2022-0 Yes [id number] USE [facility] [place], 7 DIRECTED ity of Disposable, 00:00: FOUR TIMES [place] (BD 00 DAILY. Dx Medical ULTRAFINE E11.9 Branch III MINI PEN) 31 gauge x 3/16" Ndle Insulin 2022-0 Yes [id number] USE [facility] [place], 7 DIRECTED ity of Disposable, 00:00: FOUR TIMES [place] (BD 00 DAILY. Dx Medical ULTRAFINE E11.9 Branch III MINI PEN) 31 gauge x 3/16" Ndle TRESIBA 2022-0 Yes [id number] ADMINISTER [facility] 6-26 62 UNITS ity of U-200 200 00:00: UNDER THE [place] [facility] unit/mL (3 00 SKIN THREE Med ical mL) InPn TIMES Branch DAILY TRESIBA 2021-0 Yes [id number] ADMINISTER [facility] FLEXTOUCH 6-26 62 UNITS ity of U-200 200 00:00: UNDER THE [place] [facility] unit/mL (3 00 SKIN THREE Med ical mL) InPn TIMES Branch DAILY TRESIBA 2021-0 Yes [id number] ADMINISTER [facility] FLEXTOUCH 6-26 62 UNITS ity of U-200 200 00:00: UNDER THE [place] [facility] unit/mL (3 00 SKIN THREE Med ical mL) InPn TIMES Branch DAILY TRESIBA Yes [id number] ADMINISTER [facility] FLEXTOUCH 6-26 62 UNITS ity of U-200 200 00:00: UNDER THE [place] [facility] unit/mL (3 00 SKIN THREE Med ical mL) InPn TIMES Branch DAILY TRESIBA Yes [id number] ADMINISTER [facility] FLE[facility]OUCH 6-26 62 UNITS ity of U-200 200 00:00: UNDER THE [place] [facility] unit/mL (3 00 SKIN THREE Med ical mL) InPn TIMES Branch DAILY TRESIBA Yes [id number] ADMINISTER [facility] FLEXTOUCH 6-26 62 UNITS ity of U-200 200 00:00: UNDER THE [place] [facility] unit/mL (3 00 SKIN THREE Med ical mL) InPn TIMES Branch DAILY TRESIBA Yes [id number] ADMINISTER [facility] FLEXTOUCH 6-26 62 UNITS ity of U-200 200 00:00: UNDER THE [place] [facility] unit/mL (3 00 SKIN THREE Med ical mL) InPn TIMES Branch DAILY TRESIBA Yes [id number] ADMINISTER [facility] FLEXTOUCH 6-26 62 UNITS ity of U-200 200 00:00: UNDER THE [place] [facility] unit/mL (3 00 SKIN THREE Med ical mL) InPn TIMES Branch DAILY TRESIBA Yes [id number] ADMINISTER [facility] FLEXTOUCH 6-26 62 UNITS ity of U-200 200 00:00: UNDER THE [place] [facility] unit/mL (3 00 SKIN THREE Med ical mL) InPn TIMES Branch DAILY TRESIBA Yes [id number] ADMINISTER [facility] FLEXTOUCH 6-26 62 UNITS ity of U-200 200 00:00: UNDER THE [place] [facility] unit/mL (3 00 SKIN THREE Med ical mL) InPn TIMES Branch DAILY TRESIBA Yes [id number] ADMINISTER [facility] FLE[facility]OUCH 6-26 62 UNITS ity of U-200 200 00:00: UNDER THE [place] [facility] unit/mL (3 00 SKIN THREE Med ical mL) InPn TIMES Branch DAILY TRESIBA Yes [id number] ADMINISTER [facility] FLE[facility]OUCH 6-26 62 UNITS ity of U-200 200 00:00: UNDER THE [place] [facility] unit/mL (3 00 SKIN THREE Med ical mL) InPn TIMES Branch DAILY TRESIBA Yes [id number] ADMINISTER [facility] FLEXTOUCH 6-26 62 UNITS ity of U-200 200 00:00: UNDER THE [place] [facility] unit/mL (3 00 SKIN THREE Med ical mL) InPn TIMES Branch DAILY TRESIBA Yes [id number] ADMINISTER [facility] FLE[facility]OUCH 6-26 62 UNITS ity of U-200 200 00:00: UNDER THE [place] [facility] unit/mL (3 00 SKIN THREE Med ical mL) InPn TIMES Branch DAILY TRESIBA Yes [id number] ADMINISTER [facility] FLE[facility] 6-26 62 UNITS ity of U-200 200 00:00: UNDER THE [place] [facility] unit/mL (3 00 SKIN THREE Med ical mL) InPn TIMES Branch DAILY TRESIBA Yes [id number] ADMINISTER [facility] FLE[facility] 6-26 62 UNITS ity of U-200 200 00:00: UNDER THE [place] [facility] unit/mL (3 00 SKIN THREE Med ical mL) InPn TIMES Branch DAILY TRESIBA Yes [id number] ADMINISTER [facility] FLE[facility]OUCH 6-26 62 UNITS ity of U-200 200 00:00: UNDER THE [place] [facility] unit/mL (3 00 SKIN THREE Med ical mL) InPn TIMES Branch DAILY TRESIBA Yes [id number] ADMINISTER [facility] FLEXTOUCH 6-26 62 UNITS ity of U-200 200 00:00: UNDER THE [place] [facility] unit/mL (3 00 SKIN THREE Med ical mL) InPn TIMES Branch DAILY TRESIBA Yes [id number] ADMINISTER [facility] F[facility] 6-26 62 UNITS ity of U-200 200 00:00: UNDER THE [place] [facility] unit/mL (3 00 SKIN THREE Med ical mL) InPn TIMES Branch DAILY TRESIBA Yes [id number] ADMINISTER [facility] FLEXTOUCH 6-26 62 UNITS ity of U-200 200 00:00: UNDER THE [place] [facility] unit/mL (3 00 SKIN THREE Med ical mL) InPn TIMES Branch DAILY TRESIBA Yes [id number] ADMINISTER [facility] FLEXTOUCH 6-26 62 UNITS ity of U-200 200 00:00: UNDER THE [place] [facility] unit/mL (3 00 SKIN THREE Med ical mL) InPn TIMES Branch DAILY TRESIBA Yes [id number] ADMINISTER [facility] FLEXTOUCH 6-26 62 UNITS ity of U-200 200 00:00: UNDER THE [place] [facility] unit/mL (3 00 SKIN THREE Med ical mL) InPn TIMES Branch DAILY TRESIBA Yes [id number] ADMINISTER [facility] FLE[facility]OUCH 6-26 62 UNITS ity of U-200 200 00:00: UNDER THE [place] [facility] unit/mL (3 00 SKIN THREE Med ical mL) InPn TIMES Branch DAILY TRESIBA Yes [id number] ADMINISTER [facility] FLEXTOUCH 6-26 62 UNITS ity of U-200 200 00:00: UNDER THE [place] [facility] unit/mL (3 00 SKIN THREE Med ical mL) InPn TIMES Branch DAILY TRESIBA Yes [id number] ADMINISTER [facility] FLEXTOUCH 6-26 62 UNITS ity of U-200 200 00:00: UNDER THE [place] [facility] unit/mL (3 00 SKIN THREE Med ical mL) InPn TIMES Branch DAILY TRESIBA Yes [id number] ADMINISTER [facility] FLEXTOUCH 6-26 62 UNITS ity of U-200 200 00:00: UNDER THE [place] [facility] unit/mL (3 00 SKIN THREE Med ical mL) InPn TIMES Branch DAILY TRESIBA Yes [id number] ADMINISTER [facility] FLEXTOUCH 6-26 62 UNITS ity of U-200 200 00:00: UNDER THE [place] [facility] unit/mL (3 00 SKIN THREE Med ical mL) InPn TIMES Branch DAILY TRESIBA Yes [id number] ADMINISTER [facility] FLEXTOUCH 6-26 62 UNITS ity of U-200 200 00:00: UNDER THE [place] [facility] unit/mL (3 00 SKIN THREE Med ical mL) InPn TIMES Branch DAILY TRESIBA Yes [id number] ADMINISTER [facility] FLEXTOUCH 6-26 62 UNITS ity of U-200 200 00:00: UNDER THE [place] [facility] unit/mL (3 00 SKIN THREE Med ical mL) InPn TIMES Branch DAILY TRESIBA Yes [id number] ADMINISTER [facility] FLE[facility]OUCH 6-26 62 UNITS ity of U-200 200 00:00: UNDER THE [place] [facility] unit/mL (3 00 SKIN THREE Med ical mL) InPn TIMES Branch DAILY TRESIBA Yes [id number] ADMINISTER [facility] FLE[facility]OUCH 6-26 62 UNITS ity of U-200 200 00:00: UNDER THE [place] [facility] unit/mL (3 00 SKIN THREE Med ical mL) InPn TIMES Branch DAILY TRESIBA Yes [id number] ADMINISTER [facility] FLEXTOUCH 6-26 62 UNITS ity of U-200 200 00:00: UNDER THE [place] [facility] unit/mL (3 00 SKIN THREE Med ical mL) InPn TIMES Branch DAILY TRESIBA Yes [id number] ADMINISTER [facility] FLE[facility]OU[facility] 6-26 62 UNITS ity of U-200 200 00:00: UNDER THE [place] [facility] unit/mL (3 00 SKIN THREE Med ical mL) InPn TIMES Branch DAILY TRESIBA 0 2021- No [id number] ADMINISTER [facility] FLEXTOUCH 6-26 11-03 62 UNITS ity o f U-200 200 00:00: 00:00 UNDER THE [place] unit/mL (3 00 :00 SKIN THREE Med ical mL) InPn TIMES Branch DAILY VERAPAMIL 2021-0 Yes [id number] 240mg TAKE 1 U nivers 240 mg 24 5-31 CAPSULE BY ity of hr capsule 00:00: MOUTH [place] 00 DAILY Medical Branch VERAPAMIL 2021-0 Yes [id number] 240mg TAKE 1 U nivers 240 mg 24 5-31 CAPSULE BY ity of hr capsule 00:00: MOUTH [place] 00 DAILY Medical Branch VERAPAMIL 2021-0 Yes [id number] 240mg TAKE 1 U [facility] 240 mg 24 5-31 CAPSULE BY ity of hr capsule 00:00: MOUTH [place] 00 DAILY Medical Branch VERAPAMIL 2-0 2021- No [id number] 240mg TAKE 1 [facility] 240 mg 24 5-31 08-29 CAPSULE BY ity of hr capsule 00:00: 00:00 MOUTH [place] 00 :00 DAILY Medical Branch mupirocin 2 2021-0 Yes [id number] Apply to [facility] % ointment 5-25 area(s) 3 ity of 00:00: (three) [place] 00 times Medical daily. Branch mupirocin 2 2021-0 Yes [id number] Apply to [facility] % ointment 5-25 area(s) 3 ity of 00:00: (three) [place] 00 times Medical daily. Branch mupirocin 2 2021-0 Yes [id number] Apply to [facility] % ointment 5-25 area(s) 3 ity of 00:00: (three) [place] 00 times Medical daily. Branch mupirocin 2 2021-0 Yes [id number] Apply to [facility] % ointment 5-25 area(s) 3 ity of 00:00: (three) [place] 00 times Medical daily. Branch mupirocin 2 2021-0 Yes [id number] Apply to [facility] % ointment 5-25 area(s) 3 ity of 00:00: (three) [place] 00 times Medical daily. Branch mupirocin 2 2021-0 Yes [id number] Apply to [facility] % ointment 5-25 area(s) 3 ity of 00:00: (three) [place] 00 times Medical daily. Branch mupirocin 2 2021-0 Yes [id number] Apply to [facility] % ointment 5-25 area(s) 3 ity of 00:00: (three) [place] 00 times Medical daily. Branch mupirocin 2 2021-0 Yes [id number] Apply to [facility] % ointment 5-25 area(s) 3 ity of 00:00: (three) [place] 00 times Medical daily. Branch mupirocin 2 2021-0 Yes [id number] Apply to [facility] % ointment 5-25 area(s) 3 ity of 00:00: (three) [place] 00 times Medical daily. Branch mupirocin 2 2021-0 Yes [id number] Apply to [facility] % ointment 5-25 area(s) 3 ity of 00:00: (three) [place] 00 times Medical daily. Branch mupirocin 2 2021-0 Yes [id number] Apply to [facility] % ointment 5-25 area(s) 3 ity of 00:00: (three) [place] 00 times Medical daily. Branch mupirocin 2 2-0 Yes [id number] Apply to [facility] % ointment 5-25 area(s) 3 ity of 00:00: (three) [place] 00 times Medical daily. Branch mupirocin 2 2-0 Yes [id number] Apply to [facility] % ointment 5-25 area(s) 3 ity of 00:00: (three) [place] 00 times Medical daily. Branch mupirocin 2 2-0 Yes [id number] Apply to [facility] % ointment 5-25 area(s) 3 ity of 00:00: (three) [place] 00 times Medical daily. Branch mupirocin 2 2-0 Yes [id number] Apply to [facility] % ointment 5-25 area(s) 3 ity of 00:00: (three) [place] 00 times Medical daily. Branch mupirocin 2 2021-0 Yes [id number] Apply to [facility] % ointment 5-25 area(s) 3 ity of 00:00: (three) [place] 00 times Medical daily. Branch mupirocin 2 2021-0 Yes [id number] Apply to [facility] % ointment 5-25 area(s) 3 ity of 00:00: (three) [place] 00 times Medical daily. Branch mupirocin 2 2021-0 Yes [id number] Apply to [facility] % ointment 5-25 area(s) 3 ity of 00:00: (three) [place] 00 times Medical daily. Branch mupirocin 2 2021-0 Yes [id number] Apply to [facility] % ointment 5-25 area(s) 3 ity of 00:00: (three) [place] 00 times Medical daily. Branch mupirocin 2 2021-0 Yes [id number] Apply to [facility] % ointment 5-25 area(s) 3 ity of 00:00: (three) [place] 00 times Medical daily. Branch mupirocin 2 2-0 Yes [id number] Apply to [facility] % ointment 5-25 area(s) 3 ity of 00:00: (three) [place] 00 times Medical daily. Branch mupirocin 2 2-0 Yes [id number] Apply to [facility] % ointment 5-25 area(s) 3 ity of 00:00: (three) [place] 00 times Medical daily. Branch mupirocin 2 2-0 Yes [id number] Apply to [facility] % ointment 5-25 area(s) 3 ity of 00:00: (three) [place] 00 times Medical daily. Branch mupirocin 2 2-0 Yes [id number] Apply to [facility] % ointment 5-25 area(s) 3 ity of 00:00: (three) [place] 00 times Medical daily. Branch mupirocin 2 2021-0 Yes [id number] Apply to [facility] % ointment 5-25 area(s) 3 ity of 00:00: (three) [place] 00 times Medical daily. Branch mupirocin 2 2021-0 Yes [id number] Apply to [facility] % ointment 5-25 area(s) 3 ity of 00:00: (three) [place] 00 times Medical daily. Branch mupirocin 2 2021-0 Yes [id number] Apply to [facility] % ointment 5-25 area(s) 3 ity of 00:00: (three) [place] 00 times Medical daily. Branch mupirocin 2 2021-0 Yes [id number] Apply to [facility] % ointment 5-25 area(s) 3 ity of 00:00: (three) [place] 00 times Medical daily. Branch mupirocin 2 2021-0 Yes [id number] Apply to [facility] % ointment 5-25 area(s) 3 ity of 00:00: (three) [place] 00 times Medical daily. Branch mupirocin 2 2021-0 Yes [id number] Apply to [facility] % ointment 5-25 area(s) 3 ity of 00:00: (three) [place] 00 times Medical daily. Branch mupirocin 2 2021-0 Yes [id number] Apply to [facility] % ointment 5-25 area(s) 3 ity of 00:00: (three) [place] 00 times Medical daily. Branch mupirocin 2 2021-0 Yes [id number] Apply to [facility] % ointment 5-25 area(s) 3 ity of 00:00: (three) [place] 00 times Medical daily. Branch mupirocin 2 2-0 Yes [id number] Apply to [facility] % ointment 5-25 area(s) 3 ity of 00:00: (three) [place] 00 times Medical daily. Branch mupirocin 2 2021-0 Yes [id number] Apply to [facility] % ointment 5-25 area(s) 3 ity of 00:00: (three) [place] 00 times Medical daily. Branch mupirocin 2 2022-0 Yes [id number] Apply to [facility] % ointment 5-25 area(s) 3 ity of 00:00: (three) [place] 00 times Medical daily. Branch mupirocin 2 2021-0 Yes [id number] Apply to [facility] % ointment 5-25 area(s) 3 ity of 00:00: (three) [place] 00 times Medical daily. Branch mupirocin 2 2021-0 Yes [id number] Apply to [facility] % ointment 5-25 area(s) 3 ity of 00:00: (three) [place] 00 times Medical daily. Branch mupirocin 2 2021-0 Yes [id number] Apply to [facility] % ointment 5-25 area(s) 3 ity of 00:00: (three) [place] 00 times Medical daily. Branch mupirocin 2 2021-0 Yes [id number] Apply to [facility] % ointment 5-25 area(s) 3 ity of 00:00: (three) [place] 00 times Medical daily. Branch mupirocin 2 2021-0 Yes [id number] Apply to [facility] % ointment 5-25 area(s) 3 ity of 00:00: (three) [place] 00 times Medical daily. Branch mupirocin 2 2021-0 Yes [id number] Apply to [facility] % ointment 5-25 area(s) 3 ity of 00:00: (three) [place] 00 times Medical daily. Branch mupirocin 2 2021-0 Yes [id number] Apply to [facility] % ointment 5-25 area(s) 3 ity of 00:00: (three) [place] 00 times Medical daily. Branch mupirocin 2 2021-0 Yes [id number] Apply to [facility] % ointment 5-25 area(s) 3 ity of 00:00: (three) [place] 00 times Medical daily. Branch mupirocin 2 2021-0 Yes [id number] Apply to [facility] % ointment 5-25 area(s) 3 ity of 00:00: (three) [place] 00 times Medical daily. Branch mupirocin 2 2021-0 Yes [id number] Apply to [facility] % ointment 5-25 area(s) 3 ity of 00:00: (three) [place] 00 times Medical daily. Branch mupirocin 2 2021-0 Yes [id number] Apply to [facility] % ointment 5-25 area(s) 3 ity of 00:00: (three) [place] 00 times Medical daily. Branch mupirocin 2 2021-0 Yes [id number] Apply to [facility] % ointment 5-25 area(s) 3 ity of 00:00: (three) [place] 00 times Medical daily. Branch mupirocin 2 2021-0 Yes [id number] Apply to [facility] % ointment 5-25 area(s) 3 ity of 00:00: (three) [place] 00 times Medical daily. Branch mupirocin 2 2021-0 Yes [id number] Apply to [facility] % ointment 5-25 area(s) 3 ity of 00:00: (three) [place] 00 times Medical daily. Branch mupirocin 2 2021-0 Yes [id number] Apply to [facility] % ointment 5-25 area(s) 3 ity of 00:00: (three) [place] 00 times Medical daily. Branch mupirocin 2 2021-0 2022- No [id number] Apply to [facility] % ointment 5-25 11-28 area(s) 3 ity of 00:00: 00:00 (three) [place] 00 :00 times Medical daily. Branch mupirocin 2 2021-0 2- No [id number] Apply to [facility] % ointment 5-25 11-28 [...] [place] 40 daily. Medical Branch ketoconazol Yes [id number] Apply to [facility] e 2 % 5-10 area(s) ity of shampoo 00:00: once daily [place] 00 as needed [facility] for Branch Itching. ketoconazol Yes [id number] Apply to [facility] e 2 % 5-10 area(s) ity of shampoo 00:00: once daily [place] 00 as needed [facility] for Branch Itching. ketoconazol Yes [id number] Apply to [facility] e 2 % 5-10 area(s) ity of shampoo 00:00: once daily [place] 00 as needed [facility] for Branch Itching. ketoconazol Yes [id number] Apply to [facility] e 2 % 5-10 area(s) ity of shampoo 00:00: once daily [place] 00 as needed Medical for Branch Itching. ketoconazol Yes [id number] Apply to Univers e 2 % 5-10 area(s) ity of shampoo 00:00: once daily [place] 00 as needed Medical for Branch Itching. ketoconazol Yes [id number] Apply to Univers e 2 % 5-10 area(s) ity of shampoo 00:00: once daily [place] 00 as needed Medical for Branch Itching. ketoconazol 0 Yes [id number] Apply to Univers e 2 % 5-10 area(s) ity of shampoo 00:00: once daily [place] 00 as needed Medical for Branch Itching. ketoconazol 0 Yes [id number] Apply to Univers e 2 % 5-10 area(s) ity of shampoo 00:00: once daily [place] 00 as needed [facility] for Branch Itching. ketoconazol 0 Yes [id number] Apply to Univers e 2 % 5-10 area(s) ity of shampoo 00:00: once daily [place] 00 as needed [facility] for Branch Itching. ketoconazol 0 Yes [id number] Apply to Univers e 2 % 5-10 area(s) ity of shampoo 00:00: once daily [place] 00 as needed Medical for Branch Itching. ketoconazol 0 Yes [id number] Apply to Univers e 2 % 5-10 area(s) ity of shampoo 00:00: once daily [place] 00 as needed [facility] for Branch Itching. ketoconazol 0 Yes [id number] Apply to Univers e 2 % 5-10 area(s) ity of shampoo 00:00: once daily [place] 00 as needed [facility] for Branch Itching. ketoconazol 0 Yes [id number] Apply to Univers e 2 % 5-10 area(s) ity of shampoo 00:00: once daily [place] 00 as needed Medical for Branch Itching. ketoconazol 0 Yes [id number] Apply to [facility] e 2 % 5-10 area(s) ity of shampoo 00:00: once daily [place] 00 as needed [facility] for Branch Itching. ketoconazol 0 Yes [id number] Apply to Univers e 2 % 5-10 area(s) ity of shampoo 00:00: once daily [place] 00 as needed Medical for Branch Itching. ketoconazol 0 Yes [id number] Apply to Univers e 2 % 5-10 area(s) ity of shampoo 00:00: once daily [place] 00 as needed Medical for Branch Itching. ketoconazol 0 Yes [id number] Apply to Univers e 2 % 5-10 area(s) ity of shampoo 00:00: once daily [place] 00 as needed Medical for Branch Itching. ketoconazol 0 Yes [id number] Apply to Univers e 2 % 5-10 area(s) ity of shampoo 00:00: once daily [place] 00 as needed Medical for Branch Itching. ketoconazol 0 Yes [id number] Apply to Univers e 2 % 5-10 area(s) ity of shampoo 00:00: once daily [place] 00 as needed Medical for Branch Itching. ketoconazol 2021-0 Yes [id number] Apply to Univers e 2 % 5-10 area(s) ity of shampoo 00:00: once daily [place] 00 as needed Medical for Branch Itching. ketoconazol 0 Yes [id number] Apply to Univers e 2 % 5-10 area(s) ity of shampoo 00:00: once daily [place] 00 as needed Medical for Branch Itching. ketoconazol 0 Yes [id number] Apply to Univers e 2 % 5-10 area(s) ity of shampoo 00:00: once daily [place] 00 as needed Medical for Branch Itching. ketoconazol 0 Yes [id number] Apply to [facility] e 2 % 5-10 area(s) ity of shampoo 00:00: once daily [place] 00 as needed Medical for Branch Itching. ketoconazol 0 Yes [id number] Apply to [facility] e 2 % 5-10 area(s) ity of shampoo 00:00: once daily [place] 00 as needed Medical for Branch Itching. ketoconazol 0 Yes [id number] Apply to [facility] e 2 % 5-10 area(s) ity of shampoo 00:00: once daily [place] 00 as needed Medical for Branch Itching. ketoconazol 0 Yes [id number] Apply to [facility] e 2 % 5-10 area(s) ity of shampoo 00:00: once daily [place] 00 as needed Medical for Branch Itching. ketoconazol 0 Yes [id number] Apply to [facility] e 2 % 5-10 area(s) ity of shampoo 00:00: once daily [place] 00 as needed Medical for Branch Itching. ketoconazol 0 Yes [id number] Apply to [facility] e 2 % 5-10 area(s) ity of shampoo 00:00: once daily [place] 00 as needed Medical for Branch Itching. ketoconazol 0 Yes [id number] Apply to [facility] e 2 % 5-10 area(s) ity of shampoo 00:00: once daily [place] 00 as needed Medical for Branch Itching. ketoconazol 0 Yes [id number] Apply to [facility] e 2 % 5-10 area(s) ity of shampoo 00:00: once daily [place] 00 as needed Medical for Branch Itching. ketoconazol 0 Yes [id number] Apply to [facility] e 2 % 5-10 area(s) ity of shampoo 00:00: once daily [place] 00 as needed Medical for Branch Itching. ketoconazol 0 Yes [id number] Apply to Univers e 2 % 5-10 area(s) ity of shampoo 00:00: once daily [place] 00 as needed Medical for Branch Itching. ketoconazol 0 Yes [id number] Apply to Univers e 2 % 5-10 area(s) ity of shampoo 00:00: once daily [place] 00 as needed Medical for Branch Itching. ketoconazol 0 Yes [id number] Apply to Univers e 2 % 5-10 area(s) ity of shampoo 00:00: once daily [place] 00 as needed Medical for Branch Itching. ketoconazol 0 Yes [id number] Apply to [facility] e 2 % 5-10 area(s) ity of shampoo 00:00: once daily [place] 00 as needed Medical for Branch Itching. ketoconazol 0 Yes [id number] Apply to Univers e 2 % 5-10 area(s) ity of shampoo 00:00: once daily [place] 00 as needed Medical for Branch Itching. ketoconazol 0 Yes [id number] Apply to [facility] e 2 % 5-10 area(s) ity of shampoo 00:00: once daily [place] 00 as needed Medical for Branch Itching. ketoconazol 0 Yes [id number] Apply to Univers e 2 % 5-10 area(s) ity of shampoo 00:00: once daily [place] 00 as needed Medical for Branch Itching. ketoconazol 0 Yes [id number] Apply to [facility] e 2 % 5-10 area(s) ity of shampoo 00:00: once daily [place] 00 as needed Medical for Branch Itching. ketoconazol 0 Yes [id number] Apply to [facility] e 2 % 5-10 area(s) ity of shampoo 00:00: once daily [place] 00 as needed Medical for Branch Itching. ketoconazol Yes [id number] Apply to [facility] e 2 % 5-10 area(s) ity of shampoo 00:00: once daily [place] 00 as needed Medical for Branch Itching. ketoconazol Yes [id number] Apply to [facility] e 2 % 5-10 area(s) ity of shampoo 00:00: once daily [place] 00 as needed Medical for Branch Itching. ketoconazol Yes [id number] Apply to [facility] e 2 % 5-10 area(s) ity of shampoo 00:00: once daily [place] 00 as needed Medical for Branch Itching. ketoconazol Yes [id number] Apply to [facility] e 2 % 5-10 area(s) ity of shampoo 00:00: once daily [place] 00 as needed Medical for Branch Itching. ketoconazol Yes [id number] Apply to [facility] e 2 % 5-10 area(s) ity of shampoo 00:00: once daily [place] 00 as needed Medical for Branch Itching. ketoconazol Yes [id number] Apply to [facility] e 2 % 5-10 area(s) ity of shampoo 00:00: once daily [place] 00 as needed Medical for Branch Itching. ketoconazol Yes [id number] Apply to [facility] e 2 % 5-10 area(s) ity of shampoo 00:00: once daily [place] 00 as needed Medical for Branch Itching. ketoconazol 0 Yes [id number] Apply to [facility] e 2 % 5-10 area(s) ity of shampoo 00:00: once daily [place] 00 as needed Medical for Branch Itching. ketoconazol 0 Yes [id number] Apply to [facility] 2 % 5-10 area(s) ity of shampoo 00:00: once daily [place] 00 as needed [facility] Itching. ketoconazol 0 Yes [id number] Apply to [facility] 2 % 5-10 area(s) ity of shampoo 00:00: [place] daily [place] 00 as needed [facility] Itching. ketoconazol 0 Yes [id number] Apply to [facility] 2 % 5-10 area(s) ity of shampoo 00:00[place] 00 [place] needed [facility] Itching. ketoconazol 0 Yes [id number] [facility]:[place] [facility] [place] [facility] for [facility] Itching. ketoconazol 0 Yes [id number] Apply to [facility] 2 % 5-10 area(s) [facility] shampoo 00:[place]: [place] [facility] [place] needed [facility] for [facility] Itching. ketoconazol 0 Yes [id number] Apply to [facility] 2 % 5-10 area(s) [facility]y of shampoo 00:00: [place] 00 as needed [facility] for [facility] Itching. ketoconazol 0 Yes [id number] Apply to [facility] 2 % 5-10 area(s) [facility]y of shampoo 00:00: [place] 00 as needed [facility] for [facility] Itching. ketoconazol 0 Yes [id number] Apply to [facility] 2 % 5-10 area(s) [facility]y of shampoo 00:00: [place] 00 as needed [facility] for [facility] Itching. ketoconazol 0 Yes [id number] Apply to [facility] e 2 % 5-10 area(s) ity of shampoo 00:00: once daily [place] 00 as needed [facility] for Branch Itching. ketoconazol 0 Yes [id number] Apply to [facility] 2 % 5-10 area(s) [facility]y of shampoo 00:00: once daily [place] 00 as needed [facility] for Branch Itching. ketoconazol 0 Yes [id number] Apply to [facility] 2 % 5-10 area(s) ity of shampoo 00:00: once daily [place] 00 as needed [facility] for [facility] Itching. ketoconazol 0 Yes [id number] Apply to [facility] 2 % 5-10 area(s) ity of shampoo 00:00: once daily [place] 00 as needed [facility] for [facility] Itching. ketoconazol 0 Yes [id number] Apply to [facility] 2 % 5-10 area(s) ity of shampoo 00:00: once daily [place] 00 as needed [facility] for [facility] Itching. ketoconazol 0 Yes [id number] Apply to [facility] 2 % 5-10 area(s) ity of shampoo 00:00: once daily [place] 00 as needed [facility] for [facility] Itching. ketoconazol 0 Yes [id number] Apply to [facility] 2 % 5-10 area(s) ity of shampoo 00:00: once daily [place] 00 as needed [facility] for [facility] Itching. ketoconazol 0 Yes [id number] Apply to [facility] 2 % 5-10 area(s) ity of shampoo 00:00: once daily [place] 00 as needed [facility] for [facility] Itching. ketoconazol 0 Yes [id number] Apply to [facility] 2 % 5-10 area(s) ity of shampoo 00:00: once daily [place] 00 as needed [facility] for [facility] Itching. ketoconazol 0 Yes [id number] Apply to [facility] 2 % 5-10 area(s) ity of shampoo 00:00: once daily [place] 00 as needed [facility] for [facility] Itching. ketoconazol 0 Yes [id number] Apply to [facility] 2 % 5-10 area(s) ity of shampoo 00:00: once daily [place] 00 as needed [facility] for [facility] Itching. ketoconazol 0 Yes [id number] Apply to [facility] 2 % 5-10 area(s) ity of shampoo 00:00: once daily [place] 00 as needed [facility] for [facility] Itching. ketoconazol 0 Yes [id number] Apply to [facility] 2 % 5-10 area(s) ity of shampoo 00:00: once daily [place] 00 as needed [facility] for [facility] Itching. ketoconazol 0 Yes [id number] Apply to [facility] 2 % 5-10 area(s) ity of shampoo 00:00: once daily [place] 00 as needed [facility] for [facility] Itching. ketoconazol 0 Yes [id number] Apply to [facility] 2 % 5-10 area(s) ity of shampoo 00:00: once daily [place] 00 as needed [facility] for [facility] Itching. ketoconazol Yes [id number] Apply to [facility] e 2 % 5-10 area(s) ity of shampoo 00:00: once daily [place] 00 as needed [facility] for Branch Itching. ketoconazol 0 Yes [id number] Apply to [facility] e 2 % 5-10 area(s) ity of shampoo 00:00: once daily [place] 00 as needed [facility] for [facility] Itching. ketoconazol 0 Yes [id number] Apply to [facility] e 2 % 5-10 area(s) ity of shampoo 00:00: once daily [place] 00 as needed [facility] for Branch Itching. ketoconazol 0 Yes [id number] Apply to [facility] e 2 % 5-10 area(s) ity of shampoo 00:00: once daily [place] 00 as needed [facility] for Branch Itching. ketoconazol 0 Yes [id number] Apply to [facility] e 2 % 5-10 area(s) ity of shampoo 00:00: once daily [place] 00 as needed [facility] for Branch Itching. ketoconazol 0 Yes [id number] Apply to [facility] 2 % 5-10 area(s) ity of shampoo 00:00: once daily [place] 00 as needed [facility] for Branch Itching. METFORMIN 2021-0 Yes [id number] TAKE 1 [facility] 850 mg 5-02 TABLET BY ity of tablet 00:00: MOUTH [place] 00 THREE Medical TIMES Branch DAILY METFORMIN 2021-0 Yes [id number] TAKE 1 [facility] 850 mg 5-02 TABLET BY ity of tablet 00:00: MOUTH [place] 00 THREE Medical TIMES Branch DAILY METFORMIN 2021-0 Yes [id number] TAKE 1 [facility] 850 mg 5-02 TABLET BY ity of tablet 00:00: MOUTH [place] 00 THREE Medical TIMES Branch DAILY METFORMIN 2-0 Yes [id number] TAKE 1 [facility] 850 mg 5-02 TABLET BY ity of tablet 00:00: MOUTH 00 THREE Medical TIMES Branch DAILY METFORMIN 2-0 Yes [id number] TAKE 1 [facility] 850 mg 5-02 TABLET BY ity of tablet 00:00: MOUTH 00 THREE Medical TIMES Branch DAILY METFORMIN 2022-0 Yes [id number] TAKE 1 [facility] 850 mg 5-02 TABLET BY ity of tablet 00:00: MOUTH THREE Medical TIMES Branch DAILY METFORMIN 2022-0 Yes [id number] TAKE 1 [facility] 850 mg 5-02 TABLET BY ity of tablet 00:00: MOUTH THREE Medical TIMES Branch DAILY METFORMIN 2022-0 Yes [id number] TAKE 1 [facility] 850 mg 5-02 TABLET BY ity of tablet 00:00: THREE Medical TIMES Branch DAILY METFORMIN 2022-0 Yes [id number] TAKE 1 [facility] 850 mg 5-02 TABLET BY ity of tablet 00:00: MOUTH THREE Medical TIMES Branch DAILY METFORMIN 2022-0 Yes [id number] TAKE 1 [facility] 850 mg 5-02 TABLET BY ity of tablet 00:00: THREE Medical TIMES Branch DAILY METFORMIN 2022-0 Yes [id number] TAKE 1 [facility] 850 mg 5-02 TABLET BY ity of tablet 00:00: THREE Medical TIMES Branch DAILY METFORMIN 2022-0 Yes [id number] TAKE 1 [facility] 850 mg 5-02 TABLET BY ity of tablet 00:00: THREE Medical TIMES Branch DAILY METFORMIN 2022-0 Yes [id number] TAKE 1 [facility] 850 mg 5-02 TABLET BY ity of tablet 00:00: THREE Medical TIMES Branch DAILY METFORMIN 2022-0 Yes [id number] TAKE 1 [facility] 850 mg 5-02 TABLET BY ity of tablet 00:00: THREE Medical TIMES Branch DAILY METFORMIN 2022-0 Yes [id number] TAKE 1 [facility] 850 mg 5-02 TABLET BY ity of tablet 00:00: MOUTH THREE Medical TIMES Branch DAILY METFORMIN 2022-0 Yes [id number] TAKE 1 [facility] 850 mg 5-02 TABLET BY ity of tablet 00:00: THREE Medical TIMES Branch DAILY METFORMIN 2022-0 Yes [id number] TAKE 1 [facility] 850 mg 5-02 TABLET BY ity of tablet 00:00: THREE Medical TIMES Branch DAILY METFORMIN 2022-0 Yes [id number] TAKE 1 [facility] 850 mg 5-02 TABLET BY ity of tablet 00:00: THREE Medical TIMES Branch DAILY METFORMIN 2022-0 Yes [id number] TAKE 1 [facility] 850 mg 5-02 TABLET BY ity of tablet 00:00: MOUTH [place] 00 THREE Medical TIMES Branch DAILY METFORMIN 2-0 Yes [id number] TAKE 1 [facility] 850 mg 5-02 TABLET BY ity of tablet 00:00: MOUTH [place] 00 THREE Medical TIMES Branch DAILY METFORMIN 2-0 2022- No [id number] TAKE 1 [facility] 850 mg 5-02 10-21 TABLET BY ity of tablet 00:00: 00:00 MOUTH [place] 00 :00 THREE Medical TIMES Branch DAILY METFORMIN 2-0 2022- No [id number] TAKE 1 [facility] 850 mg 5-02 10-21 TABLET BY ity of tablet 00:00: 00:00 [facility] 00 :00 THREE Medical TIMES Branch DAILY METFORMIN 2-0 2022- No [id number] TAKE 1 [facility] 850 mg 5-02 10-21 TABLET BY ity of tablet 00:00: 00:00 [facility] 00 :00 THREE Medical TIMES Branch DAILY METFORMIN 2-0 2- No [id number] TAKE 1 [facility] 850 mg 5-02 10-21 TABLET BY ity of tablet 00:00: 00:00 MOUTH [place] 00 :00 THREE Medical TIMES Branch DAILY [...] for Medical E11.9 Branch gabapentin 2022-0 Yes [id number] TAKE 1 [facility] 300 mg 4-11 CAPSULE BY ity of capsule 00:00: MOUTH FOUR [place] 00 TIMES Medical DAILY Branch gabapentin 2022-0 Yes [id number] TAKE 1 [facility] 300 mg 4-11 CAPSULE BY ity of capsule 00:00: MOUTH FOUR [place] 00 TIMES Medical DAILY Branch gabapentin 2022-0 Yes [id number] TAKE 1 [facility] 300 mg 4-11 CAPSULE BY ity of capsule 00:00: MOUTH FOUR [place] 00 TIMES Medical DAILY Branch gabapentin 2022-0 Yes [id number] TAKE 1 [facility] 300 mg 4-11 CAPSULE BY ity of capsule 00:00: MOUTH FOUR [place] 00 TIMES Medical DAILY Branch gabapentin 2022-0 Yes [id number] TAKE 1 [facility] 300 mg 4-11 CAPSULE BY ity of capsule 00:00: MOUTH FOUR [place] 00 TIMES Medical DAILY Branch gabapentin 2022-0 Yes [id number] TAKE 1 [facility] 300 mg 4-11 CAPSULE BY ity of capsule 00:00: MOUTH FOUR [place] 00 TIMES Medical DAILY Branch gabapentin 2022-0 Yes [id number] TAKE 1 [facility] 300 mg 4-11 CAPSULE BY ity of capsule 00:00: MOUTH FOUR [place] 00 TIMES Medical DAILY Branch gabapentin 2-0 Yes [id number] TAKE 1 [facility] 300 mg 4-11 CAPSULE BY ity of capsule 00:00: MOUTH FOUR [place] 00 TIMES Medical DAILY Branch gabapentin 2-0 Yes [id number] TAKE 1 [facility] 300 mg 4-11 CAPSULE BY ity of capsule 00:00: MOUTH FOUR [place] 00 TIMES Medical DAILY Branch gabapentin 2022-0 2022- No [id number] TAKE 1 [facility] 300 mg 4-11 04-29 CAPSULE BY ity of capsule 00:00: 00:00 MOUTH FOUR [place] 00 :00 TIMES Medical DAILY Branch TRUE METRIX 202-0 Yes [id number] Use as [facility] GLUCOSE 3-16 directed ity of METER Kit 00:00: for 4 [place] times a Medical day Branch glucose check, ICD E11.9 TRUE METRIX 2022-0 Yes [id number] Use as [facility] GLUCOSE 3-16 directed ity of TEST STRIP 00:00: to check [place] strip 00 blood Medical sugar QID Branch DX: E11.9 TRUE METRIX 2022-0 Yes [id number] Use as [facility] GLUCOSE 3-16 directed ity of METER Kit 00:00: for 4 [place] times a Medical day Branch glucose check, ICD E11.9 TRUE METRIX 2-0 Yes [id number] Use as [facility] GLUCOSE 3-16 directed ity of TEST STRIP 00:00: to check [place] strip 00 blood Medical sugar QID Branch DX: E11.9 TRUE METRIX 2022-0 Yes [id number] Use as [facility] GLUCOSE 3-16 directed ity of METER Kit 00:00: for 4 [place] times a Medical day Branch glucose check, ICD E11.9 TRUE METRIX 2022-0 Yes [id number] Use as [facility] GLUCOSE 3-16 directed ity of TEST STRIP 00:00: to check [place] as strip 00 blood Medical sugar QID Branch DX: E11.9 TRUE METRIX 2022-0 Yes [id number] Use as [facility] GLUCOSE 3-16 directed ity of METER Kit 00:00: for 4 [place] 00 times a Medical day Branch glucose check, ICD E11.9 TRUE METRIX 2022-0 Yes [id number] Use as [facility] GLUCOSE 3-16 directed ity of TEST STRIP 00:00: to check [place] as strip 00 blood Medical sugar QID Branch DX: E11.9 TRUE METRIX 2022-0 Yes [id number] Use as [facility] GLUCOSE 3-16 directed ity of METER Kit 00:00: for 4 [place] 00 times a Medical day Branch glucose check, ICD E11.9 TRUE METRIX 2022-0 Yes [id number] Use as [facility] GLUCOSE 3-16 directed ity of TEST STRIP 00:00: to check [place] as strip 00 blood Medical sugar QID Branch DX: E11.9 TRUE METRIX 2022-0 Yes [id number] Use as [facility] GLUCOSE 3-16 directed ity of METER Kit 00:00: for 4 [place] 00 times a Medical day Branch glucose check, ICD E11.9 TRUE METRIX 2022-0 Yes [id number] Use as [facility] GLUCOSE 3-16 directed ity of TEST STRIP 00:00: to check [place] as strip 00 blood Medical sugar QID Branch DX: E11.9 TRUE METRIX 2022-0 Yes [id number] Use as [facility] GLUCOSE 3-16 directed ity of METER Kit 00:00: for 4 [place] 00 times a Medical day Branch glucose check, ICD E11.9 TRUE METRIX 2022-0 Yes [id number] Use as [facility] GLUCOSE 3-16 directed ity of TEST STRIP 00:00: to check [place] strip 00 blood Medical sugar QID Branch DX: E11.9 TRUE METRIX 2022-0 Yes [id number] Use as [facility] GLUCOSE 3-16 directed ity of METER Kit 00:00: for 4 [place] times a Medical day Branch glucose check, ICD E11.9 TRUE METRIX 2022-0 Yes [id number] Use as [facility] GLUCOSE 3-16 directed ity of TEST STRIP 00:00: to check [place] as strip 00 blood Medical sugar QID Branch DX: E11.9 TRUE METRIX 2022-0 Yes [id number] Use as [facility] GLUCOSE 3-16 directed ity of METER Kit 00:00: for 4 [place] 00 times a Medical day Branch glucose check, ICD E11.9 TRUE METRIX 2022-0 Yes [id number] Use as [facility] GLUCOSE 3-16 directed ity of TEST STRIP 00:00: to check [place] strip 00 blood Medical sugar QID Branch DX: E11.9 TRUE METRIX 2022-0 Yes [id number] Use as [facility] GLUCOSE 3-16 directed ity of METER Kit 00:00: for 4 [place] 00 times a Medical day Branch glucose check, ICD E11.9 TRUE METRIX 2022-0 Yes [id number] Use as [facility] GLUCOSE 3-16 directed ity of TEST STRIP 00:00: to check [place] strip 00 blood Medical sugar QID Branch DX: E11.9 TRUE METRIX 2022-0 Yes [id number] Use as [facility] GLUCOSE 3-16 directed ity of METER Kit 00:00: for 4 [place] 00 times a Medical day Branch glucose check, ICD E11.9 TRUE METRIX 2022-0 Yes [id number] Use as [facility] GLUCOSE 3-16 directed ity of TEST STRIP 00:00: to check [place] strip 00 blood Medical sugar D Branch DX: E11.9 TRUE METRIX 2022-0 Yes [id number] Use as [facility] GLUCOSE 3-16 directed ity of METER Kit 00:00: for 4 [place] 00 times a Medical day Branch glucose check, ICD E11.9 TRUE METRIX 2022-0 Yes [id number] Use as [facility] GLUCOSE 3-16 directed ity of TEST STRIP 00:00: to check [place] strip 00 blood Medical sugar D Branch DX: E11.9 TRUE METRIX 2022-0 Yes [id number] Use as [facility] GLUCOSE 3-16 directed ity of METER Kit 00:00: for 4 [place] 00 times a Medical day Branch glucose check, ICD E11.9 TRUE METRIX 2022-0 Yes [id number] Use as [facility] GLUCOSE 3-16 directed ity of TEST STRIP 00:00: to check [place] strip 00 blood Medical sugar D Branch DX: E11.9 TRUE METRIX 2022-0 Yes [id number] Use as [facility] GLUCOSE 3-16 directed ity of METER Kit 00:00: for 4 [place] 00 times a Medical day Branch glucose check, ICD E11.9 TRUE METRIX 2022-0 Yes [id number] Use as [facility] GLUCOSE 3-16 directed ity of TEST STRIP 00:00: to check [place] strip 00 blood Medical sugar QID Branch DX: E11.9 TRUE METRIX 2022-0 Yes [id number] Use as [facility] GLUCOSE 3-16 directed ity of METER Kit 00:00: for 4 [place] 00 times a Medical day Branch glucose check, ICD E11.9 TRUE METRIX 2022-0 Yes [id number] Use as [facility] GLUCOSE 3-16 directed ity of TEST STRIP 00:00: to check [place] as strip 00 blood Medical sugar QID Branch DX: E11.9 TRUE METRIX 2022-0 Yes [id number] Use as [facility] GLUCOSE 3-16 directed ity of METER Kit 00:00: for 4 [place] 00 times a Medical day Branch glucose check, ICD E11.9 TRUE METRIX 2022-0 Yes [id number] Use as [facility] GLUCOSE 3-16 directed ity of TEST STRIP 00:00: to check [place] strip 00 blood Medical sugar QID Branch DX: E11.9 TRUE METRIX 2022-0 Yes [id number] Use as Univers GLUCOSE 3-16 directed ity of METER Kit 00:00: for 4 [place] 00 times a Medical day Branch glucose check, ICD E11.9 TRUE METRIX 2022-0 Yes [id number] Use as [facility] GLUCOSE 3-16 directed ity of TEST STRIP 00:00: to check [place] strip 00 blood Medical sugar QID Branch DX: E11.9 TRUE METRIX 2022-0 Yes [id number] Use as Univers GLUCOSE 3-16 directed ity of METER Kit 00:00: for 4 [place] 00 times a Medical day Branch glucose check, ICD E11.9 TRUE METRIX 2022-0 Yes [id number] Use as [facility] GLUCOSE 3-16 directed ity of TEST STRIP 00:00: to check [place] strip 00 blood Medical sugar QID Branch DX: E11.9 TRUE METRIX 2022-0 Yes [id number] Use as [facility] GLUCOSE 3-16 directed ity of METER Kit 00:00: for 4 [place] 00 times a Medical day Branch glucose check, ICD E11.9 TRUE METRIX 2022-0 Yes [id number] Use as [facility] GLUCOSE 3-16 directed ity of TEST STRIP 00:00: to check [place] strip 00 blood Medical sugar QID Branch DX: E11.9 TRUE METRIX 2022-0 Yes [id number] Use as [facility] GLUCOSE 3-16 directed ity of METER Kit 00:00: for 4 [place] 00 times a Medical day Branch glucose check, ICD E11.9 TRUE METRIX 2022-0 Yes [id number] Use as Univers GLUCOSE 3-16 directed ity of TEST STRIP 00:00: to check [place] strip 00 blood Medical sugar QID Branch DX: E11.9 TRUE METRIX 2022-0 Yes [id number] Use as Univers GLUCOSE 3-16 directed ity of METER Kit 00:00: for 4 [place] 00 times a Medical day Branch glucose check, ICD E11.9 TRUE METRIX 2022-0 Yes [id number] Use as [facility] GLUCOSE 3-16 directed ity of TEST STRIP 00:00: to check [place] strip 00 blood Medical sugar QID Branch DX: E11.9 TRUE METRIX 2022-0 Yes [id number] Use as [facility] GLUCOSE 3-16 directed ity of METER Kit 00:00: for 4 [place] 00 times a Medical day Branch glucose check, ICD E11.9 TRUE METRIX 2022-0 Yes [id number] Use as [facility] GLUCOSE 3-16 directed ity of TEST STRIP 00:00: to check [place] strip 00 blood Medical sugar D Branch DX: E11.9 TRUE METRIX 2022-0 Yes [id number] Use as Univers GLUCOSE 3-16 directed ity of METER Kit 00:00: for 4 [place] 00 times a Medical day Branch glucose check, ICD E11.9 TRUE METRIX 2022-0 Yes [id number] Use as [facility] GLUCOSE 3-16 directed ity of TEST STRIP 00:00: to check [place] strip 00 blood Medical sugar D Branch DX: E11.9 TRUE METRIX 2022-0 Yes [id number] Use as Univers GLUCOSE 3-16 directed ity of METER Kit 00:00: for 4 [place] 00 times a Medical day Branch glucose check, ICD E11.9 TRUE METRIX 2022-0 Yes [id number] Use as Univers GLUCOSE 3-16 directed ity of TEST STRIP 00:00: to check [place] strip 00 blood Medical sugar [facility] Branch DX: E11.9 TRUE METRIX 2022-0 Yes [id number] Use as Univers GLUCOSE 3-16 directed ity of METER Kit 00:00: for 4 [place] 00 times a Medical day Branch glucose check, ICD E11.9 TRUE METRIX 2022-0 Yes [id number] Use as Univers GLUCOSE 3-16 directed ity of TEST STRIP 00:00: to check [place] strip 00 blood Medical sugar QID Branch DX: E11.9 TRUE METRIX 2022-0 Yes [id number] Use as [facility] GLUCOSE 3-16 directed ity of METER Kit 00:00: for 4 [place] 00 times a Medical day Branch glucose check, ICD E11.9 TRUE METRIX 2022-0 Yes [id number] Use as [facility] GLUCOSE 3-16 directed ity of TEST STRIP 00:00: to check [place] as strip 00 blood Medical sugar QID Branch DX: E11.9 TRUE METRIX 2022-0 Yes [id number] Use as [facility] GLUCOSE 3-16 directed ity of METER Kit 00:00: for 4 [place] 00 times a Medical day Branch glucose check, ICD E11.9 TRUE METRIX 2022-0 Yes [id number] Use as [facility] GLUCOSE 3-16 directed ity of TEST STRIP 00:00: to check [place] as strip 00 blood Medical sugar QID Branch DX: E11.9 TRUE METRIX 2022-0 Yes [id number] Use as [facility] GLUCOSE 3-16 directed ity of METER Kit 00:00: for 4 [place] 00 times a Medical day Branch glucose check, ICD E11.9 TRUE METRIX 2022-0 Yes [id number] Use as [facility] GLUCOSE 3-16 directed ity of TEST STRIP 00:00: to check [place] as strip 00 blood Medical sugar D Branch DX: E11.9 TRUE METRIX 2022-0 Yes [id number] Use as [facility] GLUCOSE 3-16 directed ity of METER Kit 00:00: for 4 [place] 00 times a Medical day Branch glucose check, ICD E11.9 TRUE METRIX 2022-0 Yes [id number] Use as [facility] GLUCOSE 3-16 directed ity of TEST STRIP 00:00: to check [place] as strip 00 blood Medical sugar QID Branch DX: E11.9 TRUE METRIX 2022-0 Yes [id number] Use as Univers GLUCOSE 3-16 directed ity of METER Kit 00:00: for 4 [place] 00 times a Medical day Branch glucose check, ICD E11.9 TRUE METRIX 2022-0 Yes [id number] Use as Univers GLUCOSE 3-16 directed ity of TEST STRIP 00:00: to check [place] as strip 00 blood Medical sugar QID Branch DX: E11.9 TRUE METRIX 2022-0 Yes [id number] Use as Univers GLUCOSE 3-16 directed ity of METER Kit 00:00: for 4 [place] 00 times a Medical day Branch glucose check, ICD E11.9 TRUE METRIX 2022-0 Yes [id number] Use as Univers GLUCOSE 3-16 directed ity of TEST STRIP 00:00: to check [place] as strip 00 blood Medical sugar QID Branch DX: E11.9 TRUE METRIX 2022-0 Yes [id number] Use as [facility] GLUCOSE 3-16 directed ity of METER Kit 00:00: for 4 [place] 00 times a Medical day Branch glucose check, ICD E11.9 TRUE METRIX 2022-0 Yes [id number] Use as [facility] GLUCOSE 3-16 directed ity of TEST STRIP 00:00: to check [place] as strip 00 blood Medical sugar QID Branch DX: E11.9 TRUE METRIX 2022-0 Yes [id number] Use as [facility] GLUCOSE 3-16 directed ity of METER Kit 00:00: for 4 [place] 00 times a Medical day Branch glucose check, ICD E11.9 TRUE METRIX 2022-0 Yes [id number] Use as [facility] GLUCOSE 3-16 directed ity of TEST STRIP 00:00: to check [place] as strip 00 blood Medical sugar [facility] Branch DX: E11.9 TRUE METRIX 2022-0 Yes [id number] Use as Univers GLUCOSE 3-16 directed ity of METER Kit 00:00: for 4 [place] 00 times a Medical day Branch glucose check, ICD E11.9 TRUE METRIX 2022-0 Yes [id number] Use as [facility] GLUCOSE 3-16 directed ity of TEST STRIP 00:00: to check [place] strip 00 blood Medical sugar [facility] Branch DX: E11.9 TRUE METRIX 2022-0 Yes [id number] Use as Univers GLUCOSE 3-16 directed ity of METER Kit 00:00: for 4 [place] 00 times a Medical day Branch glucose check, ICD E11.9 TRUE METRIX 2022-0 Yes [id number] Use as Univers GLUCOSE 3-16 directed ity of TEST STRIP 00:00: to check [place] as strip 00 blood Medical sugar [facility] DX: E11.9 TRUE METRIX 2022-0 Yes [id number] Use as Univers GLUCOSE 3-16 directed ity of METER Kit 00:00: for 4 [place] 00 times a Medical day Branch glucose check, ICD E11.9 TRUE METRIX 2022-0 Yes [id number] Use as [facility] GLUCOSE 3-16 directed ity of TEST STRIP 00:00: to check [place] as strip 00 blood Medical sugar QID Branch DX: E11.9 TRUE METRIX 2022-0 Yes [id number] Use as [facility] GLUCOSE 3-16 directed ity of METER Kit 00:00: for 4 [place] 00 times a Medical day Branch glucose check, ICD E11.9 TRUE METRIX 2022-0 Yes [id number] Use as [facility] GLUCOSE 3-16 directed ity of TEST STRIP 00:00: to check [place] as strip 00 blood Medical sugar QID Branch DX: E11.9 TRUE METRIX 2022-0 Yes [id number] Use as [facility] GLUCOSE 3-16 directed ity of METER Kit 00:00: for 4 [place] 00 times a Medical day Branch glucose check, ICD E11.9 TRUE METRIX 2022-0 Yes [id number] Use as [facility] GLUCOSE 3-16 directed ity of TEST STRIP 00:00: to check [place] as strip 00 blood Medical sugar QID Branch DX: E11.9 TRUE METRIX 2022-0 Yes [id number] Use as [facility] GLUCOSE 3-16 directed ity of METER Kit 00:00: for 4 [place] 00 times a Medical day Branch glucose check, ICD E11.9 TRUE METRIX 2022-0 Yes [id number] Use as Univers GLUCOSE 3-16 directed ity of TEST STRIP 00:00: to check [place] strip 00 blood Medical sugar QID Branch DX: E11.9 TRUE METRIX 2022-0 Yes [id number] Use as [facility] GLUCOSE 3-16 directed ity of METER Kit 00:00: for 4 [place] 00 times a Medical day Branch glucose check, ICD E11.9 TRUE METRIX 2022-0 Yes [id number] Use as Univers GLUCOSE 3-16 directed ity of TEST STRIP 00:00: to check [place] strip 00 blood Medical sugar QID Branch DX: E11.9 TRUE METRIX 2022-0 Yes [id number] Use as Univers GLUCOSE 3-16 directed ity of METER Kit 00:00: for 4 [place] 00 times a Medical day Branch glucose check, ICD E11.9 TRUE METRIX 2022-0 Yes [id number] Use as [facility] GLUCOSE 3-16 directed ity of TEST STRIP 00:00: to check [place] as strip 00 blood Medical sugar QID Branch DX: E11.9 TRUE METRIX 2022-0 Yes [id number] Use as [facility] GLUCOSE 3-16 directed ity of METER Kit 00:00: for 4 [place] 00 times a Medical day Branch glucose check, ICD E11.9 TRUE METRIX 2022-0 Yes [id number] Use as Univers GLUCOSE 3-16 directed ity of TEST STRIP 00:00: to check [place] strip 00 blood Medical sugar QID Branch DX: E11.9 TRUE METRIX 2022-0 Yes [id number] Use as Univers GLUCOSE 3-16 directed ity of METER Kit 00:00: for 4 [place] 00 times a Medical day Branch glucose check, ICD E11.9 TRUE METRIX 2022-0 Yes [id number] Use as Univers GLUCOSE 3-16 directed ity of TEST STRIP 00:00: to check [place] as strip 00 blood Medical sugar QID Branch DX: E11.9 TRUE METRIX 2022-0 Yes [id number] Use as Univers GLUCOSE 3-16 directed ity of METER Kit 00:00: for 4 [place] 00 times a Medical day Branch glucose check, ICD E11.9 TRUE METRIX 2022-0 Yes [id number] Use as [facility] GLUCOSE 3-16 directed ity of TEST STRIP 00:00: to check [place] as strip 00 blood Medical sugar D Branch DX: E11.9 TRUE METRIX 2022-0 Yes [id number] Use as [facility] GLUCOSE 3-16 directed ity of METER Kit 00:00: for 4 [place] 00 times a Medical day Branch glucose check, ICD E11.9 TRUE METRIX 2022-0 Yes [id number] Use as Univers GLUCOSE 3-16 directed ity of TEST STRIP 00:00: to check [place] as strip 00 blood Medical sugar D Branch DX: E11.9 TRUE METRIX 2022-0 Yes [id number] Use as Univers GLUCOSE 3-16 directed ity of METER Kit 00:00: for 4 [place] 00 times a Medical day Branch glucose check, ICD E11.9 TRUE METRIX 2022-0 Yes [id number] Use as Univers GLUCOSE 3-16 directed ity of TEST STRIP 00:00: to check [place] strip 00 blood Medical sugar [facility] Branch DX: E11.9 TRUE METRIX 2022-0 Yes [id number] Use as Univers GLUCOSE 3-16 directed ity of METER Kit 00:00: for 4 [place] 00 times a Medical day Branch glucose check, ICD E11.9 TRUE METRIX 2022-0 Yes [id number] Use as Univers GLUCOSE 3-16 directed ity of TEST STRIP 00:00: to check [place] as strip 00 blood Medical sugar QID Branch DX: E11.9 TRUE METRIX 2022-0 Yes [id number] [facility] GLUCOSE 3-16 directed [facility]y of METER Kit 00:00: for 4 [place] 00 times a Medical day Branch glucose check, ICD E11.9 TRUE METRIX 2022-0 Yes [id number] Use as [facility] GLUCOSE 3-16 directed ity of TEST STRIP 00:00: to check [facility] as strip 00 blood Medical sugar QID Branch DX: E11.9 TRUE METRIX 2022-0 Yes [id number] Use as [facility] GLUCOSE 3-16 directed ity of METER Kit 00:00: for 4 [place] 00 times a Medical day Branch glucose check, ICD E11.9 TRUE METRIX 2022-0 Yes [id number] Use as [facility] GLUCOSE 3-16 directed ity of TEST STRIP 00:00: to check [place] as strip 00 blood Medical sugar QID Branch DX: E11.9 TRUE METRIX 2022-0 Yes [id number] Use as [facility] GLUCOSE 3-16 directed ity of METER Kit 00:00: for 4 [place] 00 times a Medical day Branch glucose check, ICD E11.9 TRUE METRIX 2022-0 Yes [id number] Use as [facility] GLUCOSE 3-16 directed ity of TEST STRIP 00:00: to check [place] as strip 00 blood Medical sugar QID Branch DX: E11.9 TRUE METRIX 2022-0 Yes [id number] Use as [facility] GLUCOSE 3-16 directed ity of METER Kit 00:00: for 4 [place] 00 times a Medical day Branch glucose check, ICD E11.9 TRUE METRIX 2022-0 Yes [id number] Use as [facility] GLUCOSE 3-16 directed ity of TEST STRIP 00:00: to check [place] as strip 00 blood Medical sugar QID Branch DX: E11.9 TRUE METRIX 2022-0 Yes [id number] Use as [facility] GLUCOSE 3-16 directed ity of METER Kit 00:00: for 4 [place] 00 times a Medical day Branch glucose check, ICD E11.9 TRUE METRIX 2022-0 Yes [id number] Use as [facility] GLUCOSE 3-16 directed ity of TEST STRIP 00:00: to check [place] as strip 00 blood Medical sugar QID Branch DX: E11.9 TRUE METRIX 2022-0 Yes [id number] Use as [facility] GLUCOSE 3-16 directed ity of METER Kit 00:00: for 4 [place] 00 times a Medical day Branch glucose check, ICD E11.9 TRUE METRIX 2022-0 Yes [id number] Use as [facility] GLUCOSE 3-16 directed ity of TEST STRIP 00:00: to check [place] as strip 00 blood Medical sugar QID Branch DX: E11.9 TRUE METRIX 2022-0 Yes [id number] Use as [facility] GLUCOSE 3-16 directed ity of METER Kit 00:00: for 4 [place] 00 times a Medical day Branch glucose check, ICD E11.9 TRUE METRIX 2022-0 Yes [id number] Use as [facility] GLUCOSE 3-16 directed ity of TEST STRIP 00:00: to check [place] as strip 00 blood Medical sugar QID Branch DX: E11.9 TRUE METRIX 2022-0 Yes [id number] Use as [facility] GLUCOSE 3-16 directed ity of METER Kit 00:00: for 4 [place] 00 times a Medical day Branch glucose check, ICD E11.9 TRUE METRIX 2022-0 Yes [id number] Use as [facility] GLUCOSE 3-16 directed ity of TEST STRIP 00:00: to check [place] as strip 00 blood Medical sugar D Branch DX: E11.9 TRUE METRIX 2022-0 Yes [id number] Use as [facility] GLUCOSE 3-16 directed ity of METER Kit 00:00: for 4 [place] 00 times a Medical day Branch glucose check, ICD E11.9 TRUE METRIX 2022-0 Yes [id number] Use as [facility] GLUCOSE 3-16 directed ity of TEST STRIP 00:00: to check [place] as strip 00 blood Medical sugar D Branch DX: E11.9 TRUE METRIX 2022-0 Yes [id number] Use as [facility] GLUCOSE 3-16 directed ity of METER Kit 00:00: for 4 [place] 00 times a Medical day Branch glucose check, ICD E11.9 TRUE METRIX 2022-0 Yes [id number] Use as [facility] GLUCOSE 3-16 directed ity of TEST STRIP 00:00: to check [place] as strip 00 blood Medical sugar D Branch DX: E11.9 TRUE METRIX 2022-0 Yes [id number] Use as [facility] GLUCOSE 3-16 directed ity of METER Kit 00:00: for 4 [place] 00 times a Medical day Branch glucose check, ICD E11.9 TRUE METRIX 2022-0 Yes [id number] Use as [facility] GLUCOSE 3-16 directed ity of TEST STRIP 00:00: to check [place] as strip 00 blood Medical sugar QID Branch DX: E11.9 TRUE METRIX 2022-0 Yes [id number] Use as [facility] GLUCOSE 3-16 directed ity of METER Kit 00:00: for 4 [place] 00 times a Medical day Branch glucose check, ICD E11.9 TRUE METRIX 2022-0 Yes [id number] Use as [facility] GLUCOSE 3-16 directed ity of TEST STRIP 00:00: to check [place] as strip 00 blood Medical sugar QID Branch DX: E11.9 TRUE METRIX 2022-0 Yes [id number] Use as [facility] GLUCOSE 3-16 directed ity of METER Kit 00:00: for 4 [place] 00 times a Medical day Branch glucose check, ICD E11.9 TRUE METRIX 2022-0 Yes [id number] Use as [facility] GLUCOSE 3-16 directed ity of TEST STRIP 00:00: to check [place] as strip 00 blood Medical sugar QID Branch DX: E11.9 TRUE METRIX 2022-0 Yes [id number] Use as [facility] GLUCOSE 3-16 directed ity of METER Kit 00:00: for 4 [place] 00 times a Medical day Branch glucose check, ICD E11.9 TRUE METRIX 2022-0 Yes [id number] Use as [facility] GLUCOSE 3-16 directed ity of TEST STRIP 00:00: to check [place] as strip 00 blood Medical sugar QID Branch DX: E11.9 TRUE METRIX 2022-0 Yes [id number] Use as [facility] GLUCOSE 3-16 directed ity of METER Kit 00:00: for 4 [place] 00 times a Medical day Branch glucose check, ICD E11.9 TRUE METRIX 2022-0 Yes [id number] Use as [facility] GLUCOSE 3-16 directed ity of TEST STRIP 00:00: to check [place] as strip 00 blood Medical sugar QID Branch DX: E11.9 TRUE METRIX 2022-0 Yes [id number] Use as [facility] GLUCOSE 3-16 directed ity of METER Kit 00:00: for 4 [place] 00 times a Medical day Branch glucose check, ICD E11.9 TRUE METRIX 2022-0 Yes [id number] Use as [facility] GLUCOSE 3-16 directed ity of TEST STRIP 00:00: to check [place] as strip 00 blood Medical sugar QID Branch DX: E11.9 TRUE METRIX 2022-0 Yes [id number] Use as [facility] GLUCOSE 3-16 directed ity of METER Kit 00:00: for 4 [place] 00 times a Medical day Branch glucose check, ICD E11.9 TRUE METRIX 2022-0 Yes [id number] Use as [facility] GLUCOSE 3-16 directed ity of TEST STRIP 00:00: to check [place] as strip 00 blood Medical sugar QID Branch DX: E11.9 TRUE METRIX 2022-0 Yes [id number] Use as [facility] GLUCOSE 3-16 directed ity of METER Kit 00:00: for 4 [place] 00 times a Medical day Branch glucose check, ICD E11.9 TRUE METRIX 2022-0 Yes [id number] Use as [facility] GLUCOSE 3-16 directed ity of TEST STRIP 00:00: to check [place] as strip 00 blood Medical sugar QID Branch DX: E11.9 TRUE METRIX 2022-0 Yes [id number] Use as [facility] GLUCOSE 3-16 directed ity of METER Kit 00:00: for 4 [place] 00 times a Medical day Branch glucose check, ICD E11.9 TRUE METRIX 2022-0 Yes [id number] Use as [facility] GLUCOSE 3-16 directed ity of TEST STRIP 00:00: to check [place] as strip 00 blood Medical sugar D Branch DX: E11.9 TRUE METRIX 2022-0 Yes [id number] Use as [facility] GLUCOSE 3-16 directed ity of METER Kit 00:00: for 4 [place] 00 times a Medical day Branch glucose check, ICD E11.9 TRUE METRIX 2022-0 Yes [id number] Use as [facility] GLUCOSE 3-16 directed ity of TEST STRIP 00:00: to check [place] as strip 00 blood Medical sugar D Branch DX: E11.9 TRUE METRIX 2022-0 Yes [id number] Use as [facility] GLUCOSE 3-16 directed ity of METER Kit 00:00: for 4 [place] 00 times a Medical day Branch glucose check, ICD E11.9 TRUE METRIX 2022-0 Yes [id number] Use as [facility] GLUCOSE 3-16 directed ity of TEST STRIP 00:00: to check [place] as strip 00 blood Medical sugar D Branch DX: E11.9 TRUE METRIX 2022-0 Yes [id number] Use as [facility] GLUCOSE 3-16 directed ity of METER Kit 00:00: for 4 [place] 00 times a Medical day Branch glucose check, ICD E11.9 TRUE METRIX 2022-0 Yes [id number] Use as [facility] GLUCOSE 3-16 directed ity of TEST STRIP 00:00: to check [place] as strip 00 blood Medical sugar QID Branch DX: E11.9 TRUE METRIX 2022-0 Yes [id number] Use as [facility] GLUCOSE 3-16 directed ity of METER Kit 00:00: for 4 [place] 00 times a Medical day Branch glucose check, ICD E11.9 TRUE METRIX 2022-0 Yes [id number] Use as [facility] GLUCOSE 3-16 directed ity of TEST STRIP 00:00: to check [place] as strip 00 blood Medical sugar QID Branch DX: E11.9 TRUE METRIX 2022-0 Yes [id number] Use as [facility] GLUCOSE 3-16 directed ity of METER Kit 00:00: for 4 [place] 00 times a Medical day Branch glucose check, ICD E11.9 TRUE METRIX 2022-0 Yes [id number] Use as [facility] GLUCOSE 3-16 directed ity of TEST STRIP 00:00: to check [place] as strip 00 blood Medical sugar QID Branch DX: E11.9 TRUE METRIX 2022-0 Yes [id number] Use as [facility] GLUCOSE 3-16 directed ity of METER Kit 00:00: for 4 [place] 00 times a Medical day Branch glucose check, ICD E11.9 TRUE METRIX 2022-0 Yes [id number] Use as [facility] GLUCOSE 3-16 directed ity of TEST STRIP 00:00: to check [place] as strip 00 blood Medical sugar QID Branch DX: E11.9 TRUE METRIX 2022-0 Yes [id number] Use as [facility] GLUCOSE 3-16 directed ity of METER Kit 00:00: for 4 [place] 00 times a Medical day Branch glucose check, ICD E11.9 TRUE METRIX 2022-0 Yes [id number] Use as [facility] GLUCOSE 3-16 directed ity of TEST STRIP 00:00: to check [place] as strip 00 blood Medical sugar QID Branch DX: E11.9 TRUE METRIX 2022-0 Yes [id number] Use as [facility] GLUCOSE 3-16 directed ity of METER Kit 00:00: for 4 [place] 00 times a Medical day Branch glucose check, ICD E11.9 TRUE METRIX 2022-0 Yes [id number] Use as [facility] GLUCOSE 3-16 directed ity of TEST STRIP 00:00: to check [place] as strip 00 blood Medical sugar QID Branch DX: E11.9 TRUE METRIX 2022-0 Yes [id number] Use as [facility] GLUCOSE 3-16 directed ity of METER Kit 00:00: for 4 [place] 00 times a Medical day Branch glucose check, ICD E11.9 TRUE METRIX 2022-0 Yes [id number] Use as [facility] GLUCOSE 3-16 directed ity of TEST STRIP 00:00: to check [place] as strip 00 blood Medical sugar QID Branch DX: E11.9 TRUE METRIX 2022-0 Yes [id number] Use as [facility] GLUCOSE 3-16 directed ity of METER Kit 00:00: for 4 [place] 00 times a Medical day Branch glucose check, ICD E11.9 TRUE METRIX 2022-0 Yes [id number] Use as [facility] GLUCOSE 3-16 directed ity of TEST STRIP 00:00: to check [place] as strip 00 blood Medical sugar QID Branch DX: E11.9 TRUE METRIX 2022-0 Yes [id number] Use as [facility] GLUCOSE 3-16 directed ity of METER Kit 00:00: for 4 [place] 00 times a Medical day Branch glucose check, ICD E11.9 TRUE METRIX 2022-0 Yes [id number] Use as [facility] GLUCOSE 3-16 directed ity of TEST STRIP 00:00: to check [place] as strip 00 blood Medical sugar QID Branch DX: E11.9 SPIRONOLACT 2-0 Yes [id number] TAKE 1 [facility] ONE 25 mg 1-31 TABLET BY ity o f tablet 00:00: [facility] TWICE Medical DAILY Branch FUROSEMIDE 2022-0 Yes TAKE 1 [facility] 80 mg 1-31 TABLET BY ity of tablet 00:00: [facility] TWICE Medical DAILY Branch AMLODIPINE 2022-0 Yes [id number] 5mg TAKE 1 [facility] 5 mg tablet 1-31 TABLET BY ity of 00:00: [facility] DAILY Medical Branch SPIRONOLACT 2022-0 Yes [id number] TAKE 1 [facility] ONE 25 mg 1-31 TABLET BY ity o f tablet 00:00: [facility] TWICE Medical DAILY Branch FUROSEMIDE 2022-0 Yes TAKE 1 [facility] 80 mg 1-31 TABLET BY ity of tablet 00:00: [facility] TWICE Medical DAILY Branch AMLODIPINE 2022-0 Yes [id number] 5mg TAKE 1 U nivers 5 mg tablet 1-31 TABLET BY ity of 00:00: [facility] DAILY Medical Branch SPIRONOLACT 2022-0 Yes [id number] TAKE 1 [facility] ONE 25 mg 1-31 TABLET BY ity o f tablet 00:00: [facility] TWICE Medical DAILY Branch FUROSEMIDE 2022-0 Yes TAKE 1 [facility] 80 mg 1-31 TABLET BY ity of tablet 00:00: [facility] TWICE Medical DAILY Branch AMLODIPINE 2022-0 Yes [id number] 5mg TAKE 1 U nivers 5 mg tablet 1-31 TABLET BY ity of 00:00: [facility] DAILY Medical Branch SPIRONOLACT 2022-0 Yes [id number] TAKE 1 [facility] ONE 25 mg 1-31 TABLET BY ity o f tablet 00:00: MOUTH 00 TWICE Medical DAILY Branch FUROSEMIDE 2022-0 Yes TAKE 1 [facility] 80 mg 1-31 TABLET BY ity of tablet 00:00: MOUTH 00 TWICE Medical DAILY Branch AMLODIPINE 2022-0 Yes [id number] 5mg TAKE 1 U nivers 5 mg tablet 1-31 TABLET BY ity of 00:00: MOUTH DAILY Medical Branch SPIRONOLACT 2022-0 Yes [id number] TAKE 1 [facility] ONE 25 mg 1-31 TABLET BY ity o f tablet 00:00: MOUTH TWICE Medical DAILY Branch FUROSEMIDE 2022-0 Yes TAKE 1 [facility] 80 mg 1-31 TABLET BY ity of tablet 00:00: MOUTH TWICE Medical DAILY Branch AMLODIPINE 2022-0 Yes [id number] 5mg TAKE 1 U nivers 5 mg tablet 1-31 TABLET BY ity of 00:00: MOUTH DAILY Medical Branch SPIRONOLACT 2022-0 Yes [id number] TAKE 1 [facility] ONE 25 mg 1-31 TABLET BY ity o f tablet 00:00: MOUTH TWICE Medical DAILY Branch FUROSEMIDE 2022-0 Yes TAKE 1 [facility] 80 mg 1-31 TABLET BY ity of tablet 00:00: MOUTH TWICE Medical DAILY Branch AMLODIPINE 2022-0 Yes [id number] 5mg TAKE 1 [facility]ivers 5 mg tablet 1-31 TABLET BY ity of 00:00: MOUTH DAILY Medical Branch SPIRONOLACT 2022-0 Yes [id number] TAKE 1 [facility] ONE 25 mg 1-31 TABLET BY ity o f tablet 00:00: MOUTH TWICE Medical DAILY Branch FUROSEMIDE 2022-0 Yes TAKE 1 [facility] rs 80 mg 1-31 TABLET BY ity of tablet 00:00: MOUTH TWICE Medical DAILY Branch AMLODIPINE 2022-0 Yes [id number] 5mg TAKE 1 U nivers 5 mg tablet 1-31 TABLET BY ity of 00:00: MOUTH [place] 00 DAILY Medical Branch SPIRONOLACT 2022-0 Yes [id number] TAKE 1 [facility] ONE 25 mg 1-31 TABLET BY ity o f tablet 00:00: MOUTH TWICE Medical DAILY Branch FUROSEMIDE 2022-0 Yes TAKE 1 [facility] 80 mg 1-31 TABLET BY ity of tablet 00:00: MOUTH 00 TWICE Medical DAILY Branch AMLODIPINE 2022-0 Yes [id number] 5mg TAKE 1 [facility]ivers 5 mg tablet 1-31 TABLET BY ity of 00:00: [facility] DAILY Medical Branch SPIRONOLACT 2022-0 Yes [id number] TAKE 1 [facility] ONE 25 mg 1-31 TABLET BY ity o f tablet 00:00: [facility] TWICE Medical DAILY Branch FUROSEMIDE 2022-0 Yes TAKE 1 [facility] rs 80 mg 1-31 TABLET BY ity of tablet 00:00: [facility] TWICE Medical DAILY Branch AMLODIPINE 2022-0 Yes [id number] 5mg TAKE 1 [facility] nivers 5 mg tablet 1-31 TABLET BY ity of 00:00: [facility] DAILY Medical Branch SPIRONOLACT 2022-0 Yes [id number] TAKE 1 [facility] ONE 25 mg 1-31 TABLET BY ity o f tablet 00:00: [facility] TWICE Medical DAILY Branch FUROSEMIDE 2022-0 Yes TAKE 1 [facility] rs 80 mg 1-31 TABLET BY ity of tablet 00:00: [facility] TWICE Medical DAILY Branch AMLODIPINE 2022-0 Yes [id number] 5mg TAKE 1 U nivers 5 mg tablet 1-31 TABLET BY ity of 00:00: [facility] DAILY Medical Branch SPIRONOLACT 2022-0 Yes [id number] TAKE 1 [facility] ONE 25 mg 1-31 TABLET BY ity o f tablet 00:00: [facility] TWICE Medical DAILY Branch FUROSEMIDE 2022-0 Yes TAKE 1 [facility] rs 80 mg 1-31 TABLET BY ity of tablet 00:00: [facility] TWICE Medical DAILY Branch AMLODIPINE 2022-0 Yes [id number] 5mg TAKE 1 [facility] nivers 5 mg tablet 1-31 TABLET BY ity of 00:00: [facility] DAILY Medical Branch SPIRONOLACT 2022-0 Yes [id number] TAKE 1 [facility] ONE 25 mg 1-31 TABLET BY ity o f tablet 00:00: [facility] TWICE Medical DAILY Branch FUROSEMIDE 2022-0 Yes TAKE 1 [facility] rs 80 mg 1-31 TABLET BY ity of tablet 00:00: [facility] TWICE Medical DAILY Branch AMLODIPINE 2022-0 Yes [id number] 5mg TAKE 1 [facility] nivers 5 mg tablet 1-31 TABLET BY ity of 00:00: [facility] DAILY Medical Branch SPIRONOLACT 2022-0 Yes [id number] TAKE 1 [facility] ONE 25 mg 1-31 TABLET BY ity o f tablet 00:00: MOUTH TWICE Medical DAILY Branch FUROSEMIDE 2022-0 Yes TAKE 1 [facility] 80 mg 1-31 TABLET BY ity of tablet 00:00: MOUTH TWICE Medical DAILY Branch AMLODIPINE 2022-0 Yes [id number] 5mg TAKE 1 U nivers 5 mg tablet 1-31 TABLET BY ity of 00:00: MOUTH DAILY Medical Branch SPIRONOLACT 2022-0 Yes [id number] TAKE 1 [facility] ONE 25 mg 1-31 TABLET BY ity o f tablet 00:00: MOUTH TWICE Medical DAILY Branch FUROSEMIDE 2022-0 Yes TAKE 1 [facility] 80 mg 1-31 TABLET BY ity of tablet 00:00: MOUTH TWICE Medical DAILY Branch AMLODIPINE 2022-0 Yes [id number] 5mg TAKE 1 [facility] nivers 5 mg tablet 1-31 TABLET BY ity of 00:00: DAILY Medical Branch SPIRONOLACT 2022-0 Yes [id number] TAKE 1 [facility] ONE 25 mg 1-31 TABLET BY ity o f tablet 00:00: TWICE Medical DAILY Branch FUROSEMIDE 2022-0 Yes TAKE 1 [facility] 80 mg 1-31 TABLET BY ity of tablet 00:00: TWICE Medical DAILY Branch AMLODIPINE 2022-0 Yes [id number] 5mg TAKE 1 [facility] nivers 5 mg tablet 1-31 TABLET BY ity of 00:00: [place] DAILY Medical Branch SPIRONOLACT 2022-0 Yes [id number] TAKE 1 [facility] ONE 25 mg 1-31 TABLET BY ity o f tablet 00:00: TWICE Medical DAILY Branch FUROSEMIDE 2022-0 Yes TAKE 1 [facility] 80 mg 1-31 TABLET BY ity of tablet 00:00: [facility] TWICE Medical DAILY Branch AMLODIPINE 2022-0 Yes [id number] 5mg TAKE 1 U nivers 5 mg tablet 1-31 TABLET BY ity of 00:00: [facility] DAILY Medical Branch SPIRONOLACT 2022-0 Yes [id number] TAKE 1 [facility] ONE 25 mg 1-31 TABLET BY ity o f tablet 00:00: TWICE Medical DAILY Branch FUROSEMIDE 2022-0 Yes TAKE 1 [facility] 80 mg 1-31 TABLET BY ity of tablet 00:00: TWICE Medical DAILY Branch AMLODIPINE 2022-0 Yes [id number] 5mg TAKE 1 [facility]ivers 5 mg tablet 1-31 TABLET BY ity of 00:00: MOUTH DAILY Medical Branch SPIRONOLACT 2022-0 Yes [id number] TAKE 1 [facility] ONE 25 mg 1-31 TABLET BY ity o f tablet 00:00: MOUTH TWICE Medical DAILY Branch FUROSEMIDE 2022-0 Yes TAKE 1 [facility] 80 mg 1-31 TABLET BY ity of tablet 00:00: MOUTH TWICE Medical DAILY Branch AMLODIPINE 2022-0 Yes [id number] 5mg TAKE 1 [facility] nivers 5 mg tablet 1-31 TABLET BY ity of 00:00: MOUTH DAILY Medical Branch SPIRONOLACT 2022-0 Yes [id number] TAKE 1 [facility] ONE 25 mg 1-31 TABLET BY ity o f tablet 00:00: TWICE Medical DAILY Branch FUROSEMIDE 2022-0 Yes TAKE 1 [facility] 80 mg 1-31 TABLET BY ity of tablet 00:00: [facility] TWICE Medical DAILY Branch AMLODIPINE 2022-0 Yes [id number] 5mg TAKE 1 U nivers 5 mg tablet 1-31 TABLET BY ity of 00:00: [facility] DAILY Medical Branch SPIRONOLACT 2022-0 Yes [id number] TAKE 1 [facility] ONE 25 mg 1-31 TABLET BY ity o f tablet 00:00: [facility] TWICE Medical DAILY Branch FUROSEMIDE 2022-0 Yes TAKE 1 [facility] rs 80 mg 1-31 TABLET BY ity of tablet 00:00: [facility] TWICE Medical DAILY Branch AMLODIPINE 2022-0 Yes [id number] 5mg TAKE 1 U nivers 5 mg tablet 1-31 TABLET BY ity of 00:00: [facility] DAILY Medical Branch SPIRONOLACT 2022-0 Yes [id number] TAKE 1 [facility] ONE 25 mg 1-31 TABLET BY ity o f tablet 00:00: MOUTH TWICE Medical DAILY Branch FUROSEMIDE 2022-0 Yes TAKE 1 [facility] rs 80 mg 1-31 TABLET BY ity of tablet 00:00: [facility] TWICE Medical DAILY Branch AMLODIPINE 2022-0 Yes [id number] 5mg TAKE 1 [facility] nivers 5 mg tablet 1-31 TABLET BY ity of 00:00: [facility] DAILY Medical Branch SPIRONOLACT 2022-0 Yes [id number] TAKE 1 [facility] ONE 25 mg 1-31 TABLET BY ity o f tablet 00:00: MOUTH TWICE Medical DAILY Branch FUROSEMIDE 2022-0 Yes TAKE 1 [facility] 80 mg 1-31 TABLET BY ity of tablet 00:00: [facility] TWICE Medical DAILY Branch AMLODIPINE 2022-0 Yes [id number] 5mg TAKE 1 [facility]ivers 5 mg tablet 1-31 TABLET BY ity of 00:00: [facility] DAILY Medical Branch SPIRONOLACT 2022-0 Yes [id number] TAKE 1 [facility] ONE 25 mg 1-31 TABLET BY ity o f tablet 00:00: [facility] TWICE Medical DAILY Branch FUROSEMIDE 2022-0 Yes TAKE 1 [facility] rs 80 mg 1-31 TABLET BY ity of tablet 00:00: [facility] TWICE Medical DAILY Branch AMLODIPINE 2022-0 Yes [id number] 5mg TAKE 1 [facility] nivers 5 mg tablet 1-31 TABLET BY ity of 00:00: [facility] DAILY Medical Branch SPIRONOLACT 2022-0 Yes [id number] TAKE 1 [facility] ONE 25 mg 1-31 TABLET BY ity o f tablet 00:00: [facility] TWICE Medical DAILY Branch FUROSEMIDE 2022-0 Yes TAKE 1 [facility] rs 80 mg 1-31 TABLET BY ity of tablet 00:00: [facility] TWICE Medical DAILY Branch AMLODIPINE 2022-0 Yes [id number] 5mg TAKE 1 [facility]ivers 5 mg tablet 1-31 TABLET BY ity of 00:00: [facility] DAILY Medical Branch SPIRONOLACT 2022-0 Yes [id number] TAKE 1 [facility] ONE 25 mg 1-31 TABLET BY ity o f tablet 00:00: [facility] TWICE Medical DAILY Branch FUROSEMIDE 2022-0 Yes TAKE 1 [facility] rs 80 mg 1-31 TABLET BY ity of tablet 00:00: [facility] TWICE Medical DAILY Branch AMLODIPINE 2022-0 Yes [id number] 5mg TAKE 1 [facility]ivers 5 mg tablet 1-31 TABLET BY ity of 00:00: [facility] DAILY Medical Branch SPIRONOLACT 2022-0 Yes [id number] TAKE 1 [facility] ONE 25 mg 1-31 TABLET BY ity o f tablet 00:00: [facility] TWICE Medical DAILY Branch FUROSEMIDE 2022-0 Yes TAKE 1 [facility] rs 80 mg 1-31 TABLET BY ity of tablet 00:00: [facility] TWICE Medical DAILY Branch AMLODIPINE 2022-0 Yes [id number] 5mg TAKE 1 [facility] nivers 5 mg tablet 1-31 TABLET BY ity of 00:00: MOUTH 00 DAILY Medical Branch SPIRONOLACT 2022-0 Yes [id number] TAKE 1 [facility] ONE 25 mg 1-31 TABLET BY ity o f tablet 00:00: MOUTH TWICE Medical DAILY Branch FUROSEMIDE 2022-0 Yes TAKE 1 [facility] rs 80 mg 1-31 TABLET BY ity of tablet 00:00: MOUTH TWICE Medical DAILY Branch AMLODIPINE 2022-0 Yes [id number] 5mg TAKE 1 U nivers 5 mg tablet 1-31 TABLET BY ity of 00:00: MOUTH DAILY Medical Branch SPIRONOLACT 2022-0 Yes [id number] TAKE 1 [facility] ONE 25 mg 1-31 TABLET BY ity o f tablet 00:00: MOUTH TWICE Medical DAILY Branch FUROSEMIDE 2022-0 Yes TAKE 1 [facility] rs 80 mg 1-31 TABLET BY ity of tablet 00:00: MOUTH TWICE Medical DAILY Branch AMLODIPINE 2022-0 Yes [id number] 5mg TAKE 1 [facility] nivers 5 mg tablet 1-31 TABLET BY ity of 00:00: MOUTH DAILY Medical Branch SPIRONOLACT 2022-0 Yes [id number] TAKE 1 [facility] ONE 25 mg 1-31 TABLET BY ity o f tablet 00:00: MOUTH TWICE Medical DAILY Branch FUROSEMIDE 2022-0 Yes TAKE 1 [facility] 80 mg 1-31 TABLET BY ity of tablet 00:00: [facility] TWICE Medical DAILY Branch AMLODIPINE 2022-0 Yes [id number] 5mg TAKE 1 U nivers 5 mg tablet 1-31 TABLET BY ity of 00:00: [facility] DAILY Medical Branch SPIRONOLACT 2022-0 Yes [id number] TAKE 1 [facility] ONE 25 mg 1-31 TABLET BY ity o f tablet 00:00: MOUTH 00 TWICE Medical DAILY Branch FUROSEMIDE 2022-0 Yes TAKE 1 [facility] rs 80 mg 1-31 TABLET BY ity of tablet 00:00: [facility] TWICE Medical DAILY Branch SPIRONOLACT 2022-0 Yes [id number] TAKE 1 [facility] ONE 25 mg 1-31 TABLET BY ity o f tablet 00:00: MOUTH TWICE Medical DAILY Branch FUROSEMIDE 2022-0 Yes TAKE 1 [facility] 80 mg 1-31 TABLET BY ity of tablet 00:00: MOUTH TWICE Medical DAILY Branch SPIRONOLACT 2022-0 Yes [id number] TAKE 1 [facility] ONE 25 mg 1-31 TABLET BY ity o f tablet 00:00: MOUTH 00 TWICE Medical DAILY Branch FUROSEMIDE 2022-0 Yes TAKE 1 [facility] rs 80 mg 1-31 TABLET BY ity of tablet 00:00: MOUTH 00 TWICE Medical DAILY Branch SPIRONOLACT 2-0 Yes [id number] TAKE 1 [facility] ONE 25 mg 1-31 TABLET BY ity o f tablet 00:00: MOUTH 00 TWICE Medical DAILY Branch FUROSEMIDE 2-0 Yes TAKE 1 [facility] rs 80 mg 1-31 TABLET BY ity of tablet 00:00: MOUTH 00 TWICE Medical DAILY Branch SPIRONOLACT 2-0 Yes [id number] TAKE 1 [facility] ONE 25 mg 1-31 TABLET BY ity o f tablet 00:00: MOUTH 00 TWICE Medical DAILY Branch FUROSEMIDE 2-0 Yes TAKE 1 [facility] 80 mg 1-31 TABLET BY ity of tablet 00:00: MOUTH 00 TWICE Medical DAILY Branch SPIRONOLACT 2021-0 Yes [id number] TAKE 1 [facility] ONE 25 mg 1-31 TABLET BY ity o f tablet 00:00: MOUTH 00 TWICE Medical DAILY Branch SPIRONOLACT 2-0 Yes [id number] TAKE 1 [facility] ONE 25 mg 1-31 TABLET BY ity o f tablet 00:00: MOUTH 00 TWICE Medical DAILY Branch SPIRONOLACT 2022-0 Yes [id number] TAKE 1 [facility] ONE 25 mg 1-31 TABLET BY ity o f tablet 00:00: MOUTH 00 TWICE Medical DAILY Branch SPIRONOLACT 2022-0 Yes [id number] TAKE 1 [facility] ONE 25 mg 1-31 TABLET BY ity o f tablet 00:00: MOUTH 00 TWICE Medical DAILY Branch SPIRONOLACT 2022-0 Yes [id number] TAKE 1 [facility] ONE 25 mg 1-31 TABLET BY ity o f tablet 00:00: MOUTH 00 TWICE Medical DAILY Branch SPIRONOLACT 2022-0 Yes [id number] TAKE 1 [facility] ONE 25 mg 1-31 TABLET BY ity o f tablet 00:00: MOUTH [place] 00 TWICE Medical DAILY Branch SPIRONOLACT 2022-0 Yes [id number] TAKE 1 [facility] ONE 25 mg 1-31 TABLET BY ity o f tablet 00:00: MOUTH 00 TWICE Medical DAILY Branch SPIRONOLACT 2022-0 Yes [id number] TAKE 1 [facility] ONE 25 mg 1-31 TABLET BY ity o f tablet 00:00: MOUTH [place] 00 TWICE Medical DAILY Branch SPIRONOLACT 2022-0 Yes [id number] TAKE 1 [facility] ONE 25 mg 1-31 TABLET BY ity o f tablet 00:00: [facility] 00 TWICE Medical DAILY Branch SPIRONOLACT 2022-0 Yes [id number] TAKE 1 [facility] ONE 25 mg 1-31 TABLET BY ity o f tablet 00:00: [facility] 00 TWICE Medical DAILY Branch SPIRONOLACT 2022-0 Yes [id number] TAKE 1 [facility] ONE 25 mg 1-31 TABLET BY ity o f tablet 00:00: MOUTH [place] 00 TWICE Medical DAILY Branch SPIRONOLACT 2022-0 Yes [id number] TAKE 1 [facility] ONE 25 mg 1-31 TABLET BY ity o f tablet 00:00: [facility] 00 TWICE Medical DAILY Branch SPIRONOLACT 2022-0 Yes [id number] TAKE 1 [facility] ONE 25 mg 1-31 TABLET BY ity o f tablet 00:00: [facility] 00 TWICE Medical DAILY Branch SPIRONOLACT 2022-0 Yes [id number] TAKE 1 [facility] ONE 25 mg 1-31 TABLET BY ity o f tablet 00:00: [facility] 00 TWICE Medical DAILY Branch SPIRONOLACT 2022-0 Yes [id number] TAKE 1 [facility] ONE 25 mg 1-31 TABLET BY ity o f tablet 00:00: [facility] 00 TWICE Medical DAILY Branch SPIRONOLACT 2022-0 Yes [id number] TAKE 1 [facility] ONE 25 mg 1-31 TABLET BY ity o f tablet 00:00: [facility] 00 TWICE Medical DAILY Branch SPIRONOLACT 2022-0 Yes [id number] TAKE 1 [facility] ONE 25 mg 1-31 TABLET BY ity o f tablet 00:00: [facility] 00 TWICE Medical DAILY Branch SPIRONOLACT 2022-0 Yes [id number] TAKE 1 [facility] ONE 25 mg 1-31 TABLET BY ity o f tablet 00:00: [facility] 00 TWICE Medical DAILY Branch SPIRONOLACT 2022-0 Yes [id number] TAKE 1 [facility] ONE 25 mg 1-31 TABLET BY ity o f tablet 00:00: [facility] 00 TWICE Medical DAILY Branch SPIRONOLACT 2022-0 2022- No [id number] TAKE 1 [facility] ONE 25 mg 1-31 12-08 TABLET BY ity of tablet 00:00: 00:00 MOUTH [place] 00 :00 TWICE Medical DAILY Branch SPIRONOLACT 2022-0 2022- No [id number] TAKE 1 [facility] ONE 25 mg 09-02 TABLET BY ity of tablet 00:00: 00:00 MOUTH [place] 00 : TWICE Medical DAILY Branch FUROSEMIDE 2021- No TAKE 1 [facility] ers 80 mg 09-02 TABLET BY ity of tablet 00:00: 00:00 MOUTH [place] 00 : TWICE Medical DAILY Branch FUROSEMIDE 2021- No TAKE 1 [facility] ers 80 mg 09-02 TABLET BY ity of tablet 00:00: 00:00 MOUTH [place] 00 :00 TWICE Medical DAILY Branch FUROSEMIDE 2021- No TAKE 1 [facility] ers 80 mg 09-02 TABLET BY ity of tablet 00:00: 00:00 MOUTH [place] 00 :00 TWICE Medical DAILY Branch AMLODIPINE 2021- No [id number] 5mg TAKE 1 [facility] 5 mg tablet 09-02 TABLET BY it y of 00:00: 00:00 MOUTH [place] 00 : DAILY Medical Branch venlafaxine Yes [id number] TK 1 C PO [facility] XR 150 mg 1-13 QD ity of 24 hr 00:00: [place] [facility] venlafaxine Yes [id number] TK 1 C PO [facility] XR 150 mg 1-13 QD ity of 24 hr 00:00: [place] [facility] venlafaxine 0 Yes [id number] TK 1 C PO [facility] XR 150 mg 1-13 QD ity of 24 hr 00:00: [place] [facility] venlafaxine 0 Yes [id number] TK 1 C PO [facility] XR 150 mg 1-13 QD ity of 24 hr 00:00: [place] [facility] venlafaxine 0 Yes [id number] TK 1 C PO [facility] XR 150 mg 1-13 QD ity of 24 hr 00:00: [place] [facility] venlafaxine 0 Yes [id number] TK 1 C PO [facility] XR 150 mg 1-13 QD ity of 24 hr 00:00: [place] [facility] venlafaxine 0 Yes [id number] TK 1 C PO [facility] XR 150 mg 1-13 QD ity of 24 hr 00:00: [place] [facility] venlafaxine 0 Yes [id number] TK 1 C PO [facility] XR 150 mg 1-13 QD ity of 24 hr 00:00: [place] [facility] venlafaxine 2021-0 Yes [id number] TK 1 C PO [facility] XR 150 mg 1-13 QD ity of 24 hr 00:00: [place] [facility] venlafaxine 2021-0 Yes [id number] TK 1 C PO [facility] XR 150 mg 1-13 QD ity of 24 hr 00:00: [place] [facility] venlafaxine 2021-0 Yes [id number] TK 1 C PO [facility] XR 150 mg 1-13 QD ity of 24 hr 00:00: [place] [facility] venlafaxine 2021-0 Yes [id number] TK 1 C PO [facility] XR 150 mg 1-13 QD ity of 24 hr 00:00: [place] [facility] venlafaxine 2021-0 Yes [id number] TK 1 C PO [facility] XR 150 mg 1-13 QD ity of 24 hr 00:00: [place] [facility] venlafaxine 2021-0 Yes [id number] TK 1 C PO [facility] XR 150 mg 1-13 QD ity of 24 hr 00:00: [place] [facility] venlafaxine 2021-0 Yes [id number] TK 1 C PO [facility] XR 150 mg 1-13 QD ity of 24 hr 00:00: [place] [facility] venlafaxine 2021-0 Yes [id number] TK 1 C PO [facility] XR 150 mg 1-13 QD ity of 24 hr 00:00: [place] [facility] venlafaxine 2021-0 Yes [id number] TK 1 C PO [facility] XR 150 mg 1-13 QD ity of 24 hr 00:00: [place] [facility] venlafaxine 2021-0 Yes [id number] TK 1 C PO [facility] XR 150 mg 1-13 QD ity of 24 hr 00:00: [place] [facility] venlafaxine 2021-0 Yes [id number] TK 1 C PO [facility] XR 150 mg 1-13 QD ity of 24 hr 00:00: [place] [facility] venlafaxine 2021-0 Yes [id number] TK 1 C PO [facility] XR 150 mg 1-13 QD ity of 24 hr 00:00: [place] [facility] venlafaxine 2021-0 Yes [id number] TK 1 C PO [facility] XR 150 mg 1-13 QD ity of 24 hr 00:00: [place] [facility] venlafaxine 2021-0 Yes [id number] TK 1 C PO [facility] XR 150 mg 1-13 QD ity of 24 hr 00:00: [place] [facility] venlafaxine 2021-0 Yes [id number] TK 1 C PO [facility] XR 150 mg 1-13 QD ity of 24 hr 00:00: [place] [facility] venlafaxine 2021-0 Yes [id number] TK 1 C PO [facility] XR 150 mg 1-13 QD ity of 24 hr 00:00: [place] [facility] venlafaxine 2021-0 Yes [id number] TK 1 C PO [facility] XR 150 mg 1-13 QD ity of 24 hr 00:00: [place] [facility] venlafaxine 2021-0 Yes [id number] TK 1 C PO [facility] XR 150 mg 1-13 QD ity of 24 hr 00:00: [place] [facility] venlafaxine 2021-0 Yes [id number] TK 1 C PO [facility] XR 150 mg 1-13 QD ity of 24 hr 00:00: [place] [facility] venlafaxine 2021-0 Yes [id number] TK 1 C PO [facility] XR 150 mg 1-13 QD ity of 24 hr 00:00: [place] [facility] venlafaxine 2021-0 Yes [id number] TK 1 C PO [facility] XR 150 mg 1-13 QD ity of 24 hr 00:00: [place] [facility] venlafaxine 2021-0 Yes [id number] TK 1 C PO [facility] XR 150 mg 1-13 QD ity of 24 hr 00:00: [place] [facility] venlafaxine 2021-0 Yes [id number] TK 1 C PO [facility] XR 150 mg 1-13 QD ity of 24 hr 00:00: [place] [facility] venlafaxine 2021-0 Yes [id number] TK 1 C PO [facility] XR 150 mg 1-13 QD ity of 24 hr 00:00: [place] [facility] venlafaxine 2021-0 Yes [id number] TK 1 C PO [facility] XR 150 mg 1-13 QD ity of 24 hr 00:00: [place] [facility] venlafaxine 2021-0 Yes [id number] TK 1 C PO [facility] XR 150 mg 1-13 QD ity of 24 hr 00:00: [place] [facility] venlafaxine 2021-0 Yes [id number] TK 1 C PO [facility] XR 150 mg 1-13 QD ity of 24 hr 00:00: [place] [facility] venlafaxine 2021-0 Yes [id number] TK 1 C PO [facility] XR 150 mg 1-13 QD ity of 24 hr 00:00: [place] [facility] venlafaxine 2021-0 Yes [id number] TK 1 C PO [facility] XR 150 mg 1-13 QD ity of 24 hr 00:00: [place] [facility] venlafaxine 2021-0 Yes [id number] TK 1 C PO [facility] XR 150 mg 1-13 QD ity of 24 hr 00:00: [place] [facility] venlafaxine 2021-0 Yes [id number] TK 1 C PO [facility] XR 150 mg 1-13 QD ity of 24 hr 00:00: [place] [facility] venlafaxine 2021-0 Yes [id number] TK 1 C PO [facility] XR 150 mg 1-13 QD ity of 24 hr 00:00: [place] [facility] venlafaxine 2021-0 Yes [id number] TK 1 C PO [facility] XR 150 mg 1-13 QD ity of 24 hr 00:00: [place] [facility] venlafaxine 2021-0 Yes [id number] TK 1 C PO [facility] XR 150 mg 1-13 QD ity of 24 hr 00:00: [place] [facility] venlafaxine 2021-0 Yes [id number] TK 1 C PO [facility] XR 150 mg 1-13 QD ity of 24 hr 00:00: [place] [facility] venlafaxine 2021-0 Yes [id number] TK 1 C PO [facility] XR 150 mg 1-13 QD ity of 24 hr 00:00: [place] [facility] venlafaxine 2-0 Yes [id number] TK 1 C PO [facility] XR 150 mg 1-13 QD ity of 24 hr 00:00: [place] [facility] venlafaxine 2021-0 Yes [id number] TK 1 C PO [facility] XR 150 mg 1-13 QD ity of 24 hr 00:00: [place] [facility] venlafaxine 2021-0 Yes [id number] TK 1 C PO [facility] XR 150 mg 1-13 QD ity of 24 hr 00:00: [place] [facility] venlafaxine 2021-0 Yes [id number] TK 1 C PO [facility] XR 150 mg 1-13 QD ity of 24 hr 00:00: [place] [facility] venlafaxine 2021-0 Yes [id number] TK 1 C PO [facility] XR 150 mg 1-13 QD ity of 24 hr 00:00: [place] [facility] venlafaxine 2021-0 Yes [id number] TK 1 C PO [facility] XR 150 mg 1-13 QD ity of 24 hr 00:00: [place] [facility] venlafaxine 2021-0 Yes [id number] TK 1 C PO [facility] XR 150 mg 1-13 QD ity of 24 hr 00:00: [place] [facility] venlafaxine 2021-0 Yes [id number] TK 1 C PO [facility] XR 150 mg 1-13 QD ity of 24 hr 00:00: [place] [facility] venlafaxine 2021-0 Yes [id number] TK 1 C PO [facility] XR 150 mg 1-13 QD ity of 24 hr 00:00: [place] [facility] venlafaxine 2021-0 Yes [id number] TK 1 C PO [facility] XR 150 mg 1-13 QD ity of 24 hr 00:00: [place] [facility] venlafaxine 2021-0 Yes [id number] TK 1 C PO [facility] XR 150 mg 1-13 QD ity of 24 hr 00:00: [place] [facility] venlafaxine 2021-0 Yes [id number] TK 1 C PO [facility] XR 150 mg 1-13 QD ity of 24 hr 00:00: [place] [facility] venlafaxine 2021-0 Yes [id number] TK 1 C PO [facility] XR 150 mg 1-13 QD ity of 24 hr 00:00: [place] [facility] venlafaxine 2-0 Yes [id number] TK 1 C PO [facility] XR 150 mg 1-13 QD ity of 24 hr 00:00: [place] [facility] venlafaxine 2021-0 Yes [id number] TK 1 C PO [facility] XR 150 mg 1-13 QD ity of 24 hr 00:00: [place] [facility] venlafaxine 2-0 Yes [id number] TK 1 C PO [facility] XR 150 mg 1-13 QD ity of 24 hr 00:00: [place] [facility] venlafaxine 2021-0 Yes [id number] TK 1 C PO [facility] XR 150 mg 1-13 QD ity of 24 hr 00:00: [place] [facility] venlafaxine 2021-0 Yes [id number] TK 1 C PO [facility] XR 150 mg 1-13 QD ity of 24 hr 00:00: [place] [facility] venlafaxine 2021-0 Yes [id number] TK 1 C PO [facility] XR 150 mg 1-13 QD ity of 24 hr 00:00: [place] [facility] venlafaxine 2021-0 Yes [id number] TK 1 C PO [facility] XR 150 mg 1-13 QD ity of 24 hr 00:00: [place] [facility] venlafaxine 2021-0 Yes [id number] TK 1 C PO [facility] XR 150 mg 1-13 QD ity of 24 hr 00:00: [place] [facility] venlafaxine 2021-0 Yes [id number] TK 1 C PO [facility] XR 150 mg 1-13 QD ity of 24 hr 00:00: [place] [facility] venlafaxine 2021-0 Yes [id number] TK 1 C PO [facility] XR 150 mg 1-13 QD ity of 24 hr 00:00: [place] [facility] venlafaxine 2021-0 Yes [id number] TK 1 C PO [facility] XR 150 mg 1-13 QD ity of 24 hr 00:00: [place] [facility] venlafaxine 2021-0 Yes [id number] TK 1 C PO [facility] XR 150 mg 1-13 QD ity of 24 hr 00:00: [place] [facility] venlafaxine 2021-0 Yes [id number] TK 1 C PO [facility] XR 150 mg 1-13 QD ity of 24 hr 00:00: [place] [facility] venlafaxine 2021-0 Yes [id number] TK 1 C PO [facility] XR 150 mg 1-13 QD ity of 24 hr 00:00: [place] [facility] venlafaxine 2021-0 Yes [id number] TK 1 C PO [facility] XR 150 mg 1-13 QD ity of 24 hr 00:00: [place] [facility] venlafaxine 2021-0 Yes [id number] TK 1 C PO [facility] XR 150 mg 1-13 QD ity of 24 hr 00:00: [place] [facility] venlafaxine 2022-0 Yes [id number] TK 1 C PO [facility] XR 150 mg 1-13 QD ity of 24 hr 00:00: [place] [facility] venlafaxine Yes [id number] TK 1 C PO [facility] XR 150 mg 1-13 QD ity of 24 hr 00:00: [place] [facility] venlafaxine Yes [id number] TK 1 C PO [facility] XR 150 mg 1-13 QD ity of 24 hr 00:00: [place] [facility] venlafaxine Yes [id number] TK 1 C PO [facility] XR 150 mg 1-13 QD ity of 24 hr 00:00: [place] capsule 00 Medical Branch omega-3 2020-08 Yes 1g Take [...] Medical OIL) 1,000 Branch mg capsule omega-3 1 Yes 1g Take 1 g Un[facility] s fatty 1-17 by mouth ity of acids-vitam 09:44: [place]. [place] (FISH 23 Medical OIL) 1,000 Branch mg capsule Methylcellu 2021-0 Yes [id number] 1{scoop Take 1 [facility] lose, with 9-23 } Scoop by ity o f Sugar, 00:00: mouth [place] ([place], 00 daily. Medical SUCROSE,) Mixed with Bran ch powder water Methylcellu 2021-0 Yes [id number] 1{scoop Take 1 Univers lose, with 9-23 } Scoop by ity o f Sugar, 00:00: mouth [place] ([place], 00 daily. Medical SUCROSE,) Mixed with Bran ch powder water Methylcellu 2021-0 Yes [id number] 1{scoop Take 1 Univers lose, with 9-23 } Scoop by ity o f Sugar, 00:00: mouth [place] ([place], 00 daily. Medical SUCROSE,) Mixed with Bran ch powder water Methylcellu 2021-0 Yes [id number] 1{scoop Take 1 Univers lose, with 9-23 } Scoop by ity o f Sugar, 00:00: mouth [place] ([place], 00 daily. Medical SUCROSE,) Mixed with Bran ch powder water Methylcellu 2021-0 Yes [id number] 1{scoop Take 1 Univers lose, with 9-23 } Scoop by ity o f Sugar, 00:00: mouth [place] ([place], 00 daily. Medical SUCROSE,) Mixed with Bran ch powder water Methylcellu 2021-0 Yes [id number] 1{scoop Take 1 Univers lose, with 9-23 } Scoop by ity o f Sugar, 00:00: mouth [place] ([place], 00 daily. Medical SUCROSE,) Mixed with Bran ch powder water Methylcellu 2021-0 Yes [id number] 1{scoop Take 1 Univers lose, with 9-23 } Scoop by ity o f Sugar, 00:00: mouth [place] ([place], 00 daily. Medical SUCROSE,) Mixed with Bran ch powder water Methylcellu 2021-0 Yes [id number] 1{scoop Take 1 Univers lose, with 9-23 } Scoop by ity o f Sugar, 00:00: mouth [place] ([place], 00 daily. Medical SUCROSE,) Mixed with Bran ch powder water Methylcellu 2021-0 Yes [id number] 1{scoop Take 1 Univers lose, with 9-23 } Scoop by ity o f Sugar, 00:00: mouth [place] ([place], 00 daily. Medical SUCROSE,) Mixed with Bran ch powder water Methylcellu 2021-0 Yes [id number] 1{scoop Take 1 Univers lose, with 9-23 } Scoop by ity o f Sugar, 00:00: mouth [place] ([place], 00 daily. Medical SUCROSE,) Mixed with Bran ch powder water Methylcellu 2021-0 Yes [id number] 1{scoop Take 1 Univers lose, with 9-23 } Scoop by ity o f Sugar, 00:00: mouth [place] ([place], 00 daily. Medical SUCROSE,) Mixed with Bran ch powder water Methylcellu 2021-0 Yes [id number] 1{scoop Take 1 Univers lose, with 9-23 } Scoop by ity o f Sugar, 00:00: mouth [place] ([place], 00 daily. Medical SUCROSE,) Mixed with Bran ch powder water Methylcellu 2021-0 Yes [id number] 1{scoop Take 1 Univers lose, with 9-23 } Scoop by ity o f Sugar, 00:00: mouth [place] ([place], 00 daily. Medical SUCROSE,) Mixed with Bran ch powder water Methylcellu 2021-0 Yes [id number] 1{scoop Take 1 Univers lose, with 9-23 } Scoop by ity o f Sugar, 00:00: mouth [place] ([place], 00 daily. Medical SUCROSE,) Mixed with Bran ch powder water Methylcellu 2021-0 Yes [id number] 1{scoop Take 1 Univers lose, with 9-23 } Scoop by ity o f Sugar, 00:00: mouth [place] ([place], 00 daily. Medical SUCROSE,) Mixed with Bran ch powder water Methylcellu 2021-0 Yes [id number] 1{scoop Take 1 Univers lose, with 9-23 } Scoop by ity o f Sugar, 00:00: mouth [place] ([place], 00 daily. Medical SUCROSE,) Mixed with Bran ch powder water Methylcellu 1-0 Yes [id number] 1{scoop Take 1 Univers lose, with 9-23 } Scoop by ity o f Sugar, 00:00: mouth [place] ([place], 00 daily. Medical SUCROSE,) Mixed with Bran ch powder water Methylcellu 1-0 Yes [id number] 1{scoop Take 1 Univers lose, with 9-23 } Scoop by ity o f Sugar, 00:00: mouth [place] ([place], 00 daily. Medical SUCROSE,) Mixed with Bran ch powder water Methylcellu 1-0 Yes [id number] 1{scoop Take 1 Univers lose, with 9-23 } Scoop by ity o f Sugar, 00:00: mouth [place] ([place], 00 daily. Medical SUCROSE,) Mixed with Bran ch powder water Methylcellu 1-0 Yes [id number] 1{scoop Take 1 Univers lose, with 9-23 } Scoop by ity o f Sugar, 00:00: mouth [place] ([place], 00 daily. Medical SUCROSE,) Mixed with Bran ch powder water Methylcellu 1-0 Yes [id number] 1{scoop Take 1 Univers lose, with 9-23 } Scoop by ity o f Sugar, 00:00: mouth [place] ([place], 00 daily. Medical SUCROSE,) Mixed with Bran ch powder water Methylcellu 1-0 Yes [id number] 1{scoop Take 1 Univers lose, with 9-23 } Scoop by ity o f Sugar, 00:00: mouth [place] ([place], 00 daily. Medical SUCROSE,) Mixed with Bran ch powder water Methylcellu 2021-0 Yes [id number] 1{scoop Take 1 Univers lose, with 9-23 } Scoop by ity o f Sugar, 00:00: mouth [place] ([place], 00 daily. Medical SUCROSE,) Mixed with Bran ch powder water Methylcellu 2021-0 Yes [id number] 1{scoop Take 1 Univers lose, with 9-23 } Scoop by ity o f Sugar, 00:00: mouth [place] ([place], 00 daily. Medical SUCROSE,) Mixed with Bran ch powder water Methylcellu 2021-0 Yes [id number] 1{scoop Take 1 Univers lose, with 9-23 } Scoop by ity o f Sugar, 00:00: mouth [place] ([place], 00 daily. Medical SUCROSE,) Mixed with Bran ch powder water Methylcellu 2021-0 Yes [id number] 1{scoop Take 1 Univers lose, with 9-23 } Scoop by ity o f Sugar, 00:00: mouth [place] ([place], 00 daily. Medical SUCROSE,) Mixed with Bran ch powder water Methylcellu 2021-0 Yes [id number] 1{scoop Take 1 Univers lose, with 9-23 } Scoop by ity o f Sugar, 00:00: mouth [place] ([place], 00 daily. Medical SUCROSE,) Mixed with Bran ch powder water Methylcellu 2021-0 Yes [id number] 1{scoop Take 1 Univers lose, with 9-23 } Scoop by ity o f Sugar, 00:00: mouth [place] ([place], 00 daily. Medical SUCROSE,) Mixed with Bran ch powder water Methylcellu 2021-0 Yes [id number] 1{scoop Take 1 Univers lose, with 9-23 } Scoop by ity o f Sugar, 00:00: mouth [place] ([place], 00 daily. Medical SUCROSE,) Mixed with Bran ch powder water Methylcellu 2021-0 Yes [id number] 1{scoop Take 1 Univers lose, with 9-23 } Scoop by ity o f Sugar, 00:00: mouth [place] ([place], 00 daily. Medical SUCROSE,) Mixed with Bran ch powder water Methylcellu 2021-0 Yes [id number] 1{scoop Take 1 Univers lose, with 9-23 } Scoop by ity o f Sugar, 00:00: mouth [place] ([place], 00 daily. Medical SUCROSE,) Mixed with Bran ch powder water Methylcellu 2021-0 Yes [id number] 1{scoop Take 1 Univers lose, with 9-23 } Scoop by ity o f Sugar, 00:00: mouth [place] ([place], 00 daily. Medical SUCROSE,) Mixed with Bran ch powder water Methylcellu 2021-0 Yes [id number] 1{scoop Take 1 Univers lose, with 9-23 } Scoop by ity o f Sugar, 00:00: mouth [place] ([place], 00 daily. Medical SUCROSE,) Mixed with Bran ch powder water Methylcellu 2021-0 Yes [id number] 1{scoop Take 1 Univers lose, with 9-23 } Scoop by ity o f Sugar, 00:00: mouth [place] ([place], 00 daily. Medical SUCROSE,) Mixed with Bran ch powder water Methylcellu 2021-0 Yes [id number] 1{scoop Take 1 Univers lose, with 9-23 } Scoop by ity o f Sugar, 00:00: mouth [place] ([place], 00 daily. Medical SUCROSE,) Mixed with Bran ch powder water Methylcellu 2021-0 Yes [id number] 1{scoop Take 1 Univers lose, with 9-23 } Scoop by ity o f Sugar, 00:00: mouth [place] ([place], 00 daily. Medical SUCROSE,) Mixed with Bran ch powder water Methylcellu 2021-0 Yes [id number] 1{scoop Take 1 Univers lose, with 9-23 } Scoop by ity o f Sugar, 00:00: mouth [place] ([place], 00 daily. Medical SUCROSE,) Mixed with Bran ch powder water Methylcellu 2021-0 Yes [id number] 1{scoop Take 1 Univers lose, with 9-23 } Scoop by ity o f Sugar, 00:00: mouth [place] ([place], 00 daily. Medical SUCROSE,) Mixed with Bran ch powder water Methylcellu 2021-0 Yes [id number] 1{scoop Take 1 Univers lose, with 9-23 } Scoop by ity o f Sugar, 00:00: mouth [place] ([place], 00 daily. Medical SUCROSE,) Mixed with Bran ch powder water Methylcellu 2021-0 Yes [id number] 1{scoop Take 1 Univers lose, with 9-23 } Scoop by ity o f Sugar, 00:00: mouth [place] ([place], 00 daily. Medical SUCROSE,) Mixed with Bran ch powder water Methylcellu 2021-0 Yes [id number] 1{scoop Take 1 Univers lose, with 9-23 } Scoop by ity o f Sugar, 00:00: mouth [place] ([place], 00 daily. Medical SUCROSE,) Mixed with Bran ch powder water Methylcellu 2021-0 Yes [id number] 1{scoop Take 1 Univers lose, with 9-23 } Scoop by ity o f Sugar, 00:00: mouth [place] ([place], 00 daily. Medical SUCROSE,) Mixed with Bran ch powder water Methylcellu 2021-0 Yes [id number] 1{scoop Take 1 Univers lose, with 9-23 } Scoop by ity o f Sugar, 00:00: mouth [place] ([place], 00 daily. Medical SUCROSE,) Mixed with Bran ch powder water Methylcellu 2021-0 Yes [id number] 1{scoop Take 1 Univers lose, with 9-23 } Scoop by ity o f Sugar, 00:00: mouth [place] ([place], 00 daily. Medical SUCROSE,) Mixed with Bran ch powder water Methylcellu 2021-0 Yes [id number] 1{scoop Take 1 Univers lose, with 9-23 } Scoop by ity o f Sugar, 00:00: mouth [place] ([place], 00 daily. Medical SUCROSE,) Mixed with Bran ch powder water Methylcellu 2021-0 Yes [id number] 1{scoop Take 1 Univers lose, with 9-23 } Scoop by ity o f Sugar, 00:00: mouth [place] ([place], 00 daily. Medical SUCROSE,) Mixed with Bran ch powder water Methylcellu 2021-0 Yes [id number] 1{scoop Take 1 Univers lose, with 9-23 } Scoop by ity o f Sugar, 00:00: mouth [place] ([place], 00 daily. Medical SUCROSE,) Mixed with Bran ch powder water Methylcellu 2021-0 Yes [id number] 1{scoop Take 1 Univers lose, with 9-23 } Scoop by ity o f Sugar, 00:00: mouth [place] ([place], 00 daily. Medical SUCROSE,) Mixed with Bran ch powder water Methylcellu 2021-0 Yes [id number] 1{scoop Take 1 Univers lose, with 9-23 } Scoop by ity o f Sugar, 00:00: mouth [place] ([place], 00 daily. Medical SUCROSE,) Mixed with Bran ch powder water Methylcellu 2021-0 Yes [id number] 1{scoop Take 1 Univers lose, with 9-23 } Scoop by ity o f Sugar, 00:00: mouth [place] ([place], 00 daily. Medical SUCROSE,) Mixed with Bran ch powder water Methylcellu 2021-0 Yes [id number] 1{scoop Take 1 Univers lose, with 9-23 } Scoop by ity o f Sugar, 00:00: mouth [place] ([place], 00 daily. Medical SUCROSE,) Mixed with Bran ch powder water Methylcellu 2021-0 Yes [id number] 1{scoop Take 1 Univers lose, with 9-23 } Scoop by ity o f Sugar, 00:00: mouth [place] ([place], 00 daily. Medical SUCROSE,) Mixed with Bran ch powder water Methylcellu 2021-0 Yes [id number] 1{scoop Take 1 Univers lose, with 9-23 } Scoop by ity o f Sugar, 00:00: mouth [place] ([place], 00 daily. Medical SUCROSE,) Mixed with Bran ch powder water Methylcellu 2021-0 Yes [id number] 1{scoop Take 1 Univers lose, with 9-23 } Scoop by ity o f Sugar, 00:00: mouth [place] ([place], 00 daily. Medical SUCROSE,) Mixed with Bran ch powder water Methylcellu 2021-0 Yes [id number] 1{scoop Take 1 Univers lose, with 9-23 } Scoop by ity o f Sugar, 00:00: mouth [place] ([place], 00 daily. Medical SUCROSE,) Mixed with Bran ch powder water Methylcellu 2021-0 Yes [id number] 1{scoop Take 1 Univers lose, with 9-23 } Scoop by ity o f Sugar, 00:00: mouth [place] ([place], 00 daily. Medical SUCROSE,) Mixed with Bran ch powder water Methylcellu 2021-0 Yes [id number] 1{scoop Take 1 Univers lose, with 9-23 } Scoop by ity o f Sugar, 00:00: mouth [place] ([place], 00 daily. Medical SUCROSE,) Mixed with Bran ch powder water Methylcellu 1-0 Yes [id number] 1{scoop Take 1 Univers lose, with 9-23 } Scoop by ity o f Sugar, 00:00: mouth [place] ([place], 00 daily. Medical SUCROSE,) Mixed with Bran ch powder water Methylcellu 1-0 Yes [id number] 1{scoop Take 1 Univers lose, with 9-23 } Scoop by ity o f Sugar, 00:00: mouth [place] ([place], 00 daily. Medical SUCROSE,) Mixed with Bran ch powder water Methylcellu 1-0 Yes [id number] 1{scoop Take 1 Univers lose, with 9-23 } Scoop by ity o f Sugar, 00:00: mouth [place] ([place], 00 daily. Medical SUCROSE,) Mixed with Bran ch powder water Methylcellu 2020-0 Yes [id number] 1{scoop Take 1 Univers lose, with 9-23 } Scoop by ity o f Sugar, 00:00: mouth [place] ([place], 00 daily. Medical SUCROSE,) Mixed with Bran ch powder water Methylcellu 1-0 Yes [id number] 1{scoop Take 1 Univers lose, with 9-23 } Scoop by ity o f Sugar, 00:00: mouth [place] ([place], 00 daily. Medical SUCROSE,) Mixed with Bran ch powder water Methylcellu 1-0 Yes [id number] 1{scoop Take 1 Univers lose, with 9-23 } Scoop by ity o f Sugar, 00:00: mouth [place] ([place], 00 daily. Medical SUCROSE,) Mixed with Bran ch powder water Methylcellu 2021-0 Yes [id number] 1{scoop Take 1 Univers lose, with 9-23 } Scoop by ity o f Sugar, 00:00: mouth [place] ([place], 00 daily. Medical SUCROSE,) Mixed with Bran ch powder water Methylcellu 2021-0 Yes [id number] 1{scoop Take 1 Univers lose, with 9-23 } Scoop by ity o f Sugar, 00:00: mouth [place] ([place], 00 daily. Medical SUCROSE,) Mixed with Bran ch powder water Methylcellu 2021-0 Yes [id number] 1{scoop Take 1 Univers lose, with 9-23 } Scoop by ity o f Sugar, 00:00: mouth [place] ([place], 00 daily. Medical SUCROSE,) Mixed with Bran ch powder water Methylcellu 2021-0 Yes [id number] 1{scoop Take 1 Univers lose, with 9-23 } Scoop by ity o f Sugar, 00:00: mouth [place] ([place], 00 daily. Medical SUCROSE,) Mixed with Bran ch powder water Methylcellu 2021-0 Yes [id number] 1{scoop Take 1 Univers lose, with 9-23 } Scoop by ity o f Sugar, 00:00: mouth [place] ([place], 00 daily. Medical SUCROSE,) Mixed with Bran ch powder water Methylcellu 2021-0 Yes [id number] 1{scoop Take 1 [facility] lose, with 9-23 } Scoop by ity o f Sugar, 00:00: mouth [place] (CITRUCEL, 00 daily. Medical SUCROSE,) Mixed with Bran ch powder water Methylcellu 2021-0 Yes [id number] 1{scoop Take 1 [facility] lose, with 9-23 } Scoop by ity o f Sugar, 00:00: mouth [place] (CITRUCEL, 00 daily. Medical SUCROSE,) Mixed with Bran ch powder water Methylcellu 2021-0 Yes [id number] 1{scoop Take 1 [facility] lose, with 9-23 } Scoop by ity o f Sugar, 00:00: mouth [place] (CITRUCEL, 00 daily. Medical SUCROSE,) Mixed with Bran ch powder water Methylcellu 2021-0 Yes [id number] 1{scoop Take 1 [facility] lose, with 9-23 } Scoop by ity o f Sugar, 00:00: mouth [place] (CITRUCEL, 00 daily. Medical SUCROSE,) Mixed with Bran ch powder water Methylcellu 2021-0 Yes [id number] 1{scoop Take 1 [facility] lose, with 9-23 } Scoop by ity o f Sugar, 00:00: mouth [place] (CITRUCEL, 00 daily. Medical SUCROSE,) Mixed with Bran ch powder water Methylcellu 2021-0 Yes [id number] 1{scoop Take 1 [facility] lose, with 9-23 } Scoop by ity o f Sugar, 00:00: mouth [place] (CITRUCEL, 00 daily. Medical SUCROSE,) Mixed with Bran ch powder water Methylcellu 2021-0 Yes [id number] 1{scoop Take 1 [facility] lose, with 9-23 } Scoop by ity o f Sugar, 00:00: mouth [place] (CITRUCEL, 00 daily. Medical SUCROSE,) Mixed with Bran ch powder water Methylcellu 2021-0 Yes [id number] 1{scoop Take 1 [facility] lose, with 9-23 } Scoop by ity o f Sugar, 00:00: mouth [place] (CITRUCEL, 00 daily. Medical SUCROSE,) Mixed with Bran ch powder water Methylcellu 2021-0 Yes [id number] 1{scoop Take 1 [facility] lose, with 9-23 } Scoop by ity o f Sugar, 00:00: mouth [place] (CITRUCEL, 00 daily. Medical SUCROSE,) Mixed with Bran ch powder water chlorhexidi 2021-0 Yes [id number] Apply to [facility] 4 % 9-22 area(s) ity of external 00:00: once daily [facility] liquid 00 as needed Medical for [facility] care. chlorhexidi 2021-0 Yes [id number] Apply to [facility] ne 4 % 9-22 area(s) ity of external 00:00: once daily [facility] as liquid 00 as needed [facility] for [facility] care. chlorhexidi 2021-0 Yes [id number] Apply to [facility] ne 4 % 9-22 area(s) ity of external 00:00: once daily [facility] liquid 00 as needed Medical for [facility]ound [facility] care. chlorhexidi 2021-0 Yes [id number] Apply to [facility] ne 4 % 9-22 area(s) ity of external 00:00: once daily [facility] as liquid 00 as needed [facility] for [facility] care. chlorhexidi 2021-0 Yes [id number] Apply to [facility] ne 4 % 9-22 area(s) ity of external 00:00: once daily [facility] as liquid 00 as needed [facility] for [facility] care. chlorhexidi 2020-0 Yes [id number] Apply to [facility] ne 4 % 9-22 area(s) ity of external 00:00: once daily [facility] liquid 00 as needed [facility] for [facility] Branch care. chlorhexidi 2020-0 Yes [id number] Apply to [facility] ne 4 % 9-22 area(s) ity of external 00:00: once daily [facility] as liquid 00 as needed [facility] for [facility] care. chlorhexidi 0 Yes [id number] Apply to [facility] ne 4 % 9-22 area(s) ity of external 00:00: once daily [facility] as liquid 00 as needed [facility] for [facility] care. chlorhexidi 0 Yes [id number] Apply to [facility] ne 4 % 9-22 area(s) ity of external 00:00: once daily [facility] liquid 00 as needed [facility] for [facility] Branch care. chlorhexidi 2020-0 Yes [id number] Apply to [facility] ne 4 % 9-22 area(s) ity of external 00:00: once daily [facility] as liquid 00 as needed Medical for Wound Branch care. chlorhexidi 0 Yes [id number] Apply to [facility] ne 4 % 9-22 area(s) ity of external 00:00: once daily [facility] as liquid 00 as needed Medical for Wound Branch care. chlorhexidi 0 Yes [id number] Apply to [facility] ne 4 % 9-22 area(s) ity of external 00:00: once daily [facility] as liquid 00 as needed Medical for Wound Branch care. chlorhexidi 2020-0 Yes [id number] Apply to [facility] ne 4 % 9-22 area(s) ity of external 00:00: once daily [facility] as liquid 00 as needed Medical for Wound Branch care. chlorhexidi 2020-0 Yes [id number] Apply to [facility] ne 4 % 9-22 area(s) ity of external 00:00: once daily [facility] as liquid 00 as needed Medical for Wound Branch care. chlorhexidi 2020-0 Yes [id number] Apply to [facility] ne 4 % 9-22 area(s) ity of external 00:00: once daily [facility] as liquid 00 as needed Medical for Wound Branch care. chlorhexidi 2020-0 Yes [id number] Apply to [facility] 4 % 9-22 area(s) ity of external 00:00: once daily [facility] as liquid 00 as needed Medical for Wound Branch care. chlorhexidi 0 Yes [id number] Apply to [facility] ne 4 % 9-22 area(s) ity of external 00:00: once daily [facility] as liquid 00 as needed Medical for Wound Branch care. chlorhexidi 0 Yes [id number] Apply to [facility] ne 4 % 9-22 area(s) ity of external 00:00: once daily [facility] as liquid 00 as needed Medical for Wound Branch care. chlorhexidi 0 Yes [id number] Apply to [facility] ne 4 % 9-22 area(s) ity of external 00:00: once daily [facility] as liquid 00 as needed Medical for Wound Branch care. chlorhexidi 0 Yes [id number] Apply to [facility] ne 4 % 9-22 area(s) ity of external 00:00: once daily [facility] as liquid 00 as needed Medical for Wound Branch care. chlorhexidi 0 Yes [id number] Apply to [facility] ne 4 % 9-22 area(s) ity of external 00:00: once daily [facility] as liquid 00 as needed Medical for Wound Branch care. chlorhexidi 0 Yes [id number] Apply to [facility] ne 4 % 9-22 area(s) ity of external 00:00: once daily [facility] as liquid 00 as needed Medical for Wound Branch care. chlorhexidi 0 Yes [id number] Apply to [facility] ne 4 % 9-22 area(s) ity of external 00:00: once daily [facility] as liquid 00 as needed Medical for Wound Branch care. chlorhexidi 0 Yes [id number] Apply to [facility] ne 4 % 9-22 area(s) ity of external 00:00: once daily [facility] as liquid 00 as needed Medical for Wound Branch care. chlorhexidi 0 Yes [id number] Apply to [facility] ne 4 % 9-22 area(s) ity of external 00:00: once daily [facility] as liquid 00 as needed Medical for Wound Branch care. chlorhexidi 2020-0 Yes [id number] Apply to [facility] ne 4 % 9-22 area(s) ity of external 00:00: once daily [facility] as liquid 00 as needed Medical for Wound Branch care. chlorhexidi 2021-0 Yes [id number] Apply to [facility] ne 4 % 9-22 area(s) ity of external 00:00: once daily [facility] as liquid 00 as needed Medical for Wound Branch care. chlorhexidi 0 Yes [id number] Apply to [facility] ne 4 % 9-22 area(s) ity of external 00:00: once daily [facility] as liquid 00 as needed Medical for Wound Branch care. chlorhexidi 0 Yes [id number] Apply to [facility] ne 4 % 9-22 area(s) ity of external 00:00: once daily [facility] as liquid 00 as needed Medical for Wound Branch care. chlorhexidi 0 Yes [id number] Apply to [facility] ne 4 % 9-22 area(s) ity of external 00:00: once daily [facility] as liquid 00 as needed Medical for Wound Branch care. chlorhexidi 0 Yes [id number] Apply to [facility] ne 4 % 9-22 area(s) ity of external 00:00: once daily [facility] as liquid 00 as needed Medical for Wound Branch care. chlorhexidi 0 Yes [id number] Apply to [facility] ne 4 % 9-22 area(s) ity of external 00:00: once daily [facility] as liquid 00 as needed Medical for Wound Branch care. chlorhexidi 0 Yes [id number] Apply to [facility] ne 4 % 9-22 area(s) ity of external 00:00: once daily [facility] as liquid 00 as needed Medical for Wound Branch care. chlorhexidi 0 Yes [id number] Apply to [facility] ne 4 % 9-22 area(s) ity of external 00:00: once daily [facility] as liquid 00 as needed Medical for Wound Branch care. chlorhexidi 0 Yes [id number] Apply to [facility] ne 4 % 9-22 area(s) ity of external 00:00: once daily [facility] as liquid 00 as needed Medical for Wound Branch care. chlorhexidi 0 Yes [id number] Apply to [facility] ne 4 % 9-22 area(s) ity of external 00:00: once daily [facility] as liquid 00 as needed Medical for Wound Branch care. chlorhexidi 0 Yes [id number] Apply to [facility] ne 4 % 9-22 area(s) ity of external 00:00: once daily [facility] as liquid 00 as needed Medical for Wound Branch care. chlorhexidi 0 Yes [id number] Apply to [facility] ne 4 % 9-22 area(s) ity of external 00:00: once daily [facility] as liquid 00 as needed Medical for Wound Branch care. chlorhexidi 0 Yes [id number] Apply to [facility] ne 4 % 9-22 area(s) ity of external 00:00: once daily [facility] as liquid 00 as needed Medical for Wound Branch care. chlorhexidi 0 Yes [id number] Apply to [facility] ne 4 % 9-22 area(s) ity of external 00:00: once daily [facility] as liquid 00 as needed Medical for Wound Branch care. chlorhexidi 0 Yes [id number] Apply to [facility] ne 4 % 9-22 area(s) ity of external 00:00: once daily [facility] as liquid 00 as needed Medical for Wound Branch care. chlorhexidi 0 Yes [id number] Apply to [facility] ne 4 % 9-22 area(s) ity of external 00:00: once daily [facility] as liquid 00 as needed Medical for Wound Branch care. chlorhexidi Yes [id number] Apply to [facility] ne 4 % 9-22 area(s) ity of external 00:00: once daily [facility] as liquid 00 as needed Medical for Wound Branch care. chlorhexidi 0 Yes [id number] Apply to [facility] ne 4 % 9-22 area(s) ity of external 00:00: once daily [facility] as liquid 00 as needed Medical for Wound Branch care. chlorhexidi 0 Yes [id number] Apply to [facility] ne 4 % 9-22 area(s) ity of external 00:00: once daily [facility] as liquid 00 as needed Medical for Wound Branch care. chlorhexidi 0 Yes [id number] Apply to [facility] ne 4 % 9-22 area(s) ity of external 00:00: once daily [facility] as liquid 00 as needed Medical for Wound Branch care. chlorhexidi 0 Yes [id number] Apply to [facility] ne 4 % 9-22 area(s) ity of external 00:00: once daily [facility] as liquid 00 as needed Medical for Wound Branch care. chlorhexidi 0 Yes [id number] Apply to [facility] ne 4 % 9-22 area(s) ity of external 00:00: once daily [facility] as liquid 00 as needed Medical for Wound Branch care. chlorhexidi 0 Yes [id number] Apply to [facility] ne 4 % 9-22 area(s) ity of external 00:00: once daily [facility] as liquid 00 as needed Medical for Wound Branch care. chlorhexidi 0 Yes [id number] Apply to [facility] ne 4 % 9-22 area(s) ity of external 00:00: once daily [facility] as liquid 00 as needed Medical for Wound Branch care. chlorhexidi 0 Yes [id number] Apply to [facility] ne 4 % 9-22 area(s) ity of external 00:00: once daily [facility] as liquid 00 as needed Medical for Wound Branch care. chlorhexidi 0 Yes [id number] Apply to [facility] ne 4 % 9-22 area(s) ity of external 00:00: once daily [facility] as liquid 00 as needed Medical for Wound Branch care. chlorhexidi 0 Yes [id number] Apply to [facility] ne 4 % 9-22 area(s) ity of external 00:00: once daily [facility] as liquid 00 as needed Medical for Wound Branch care. chlorhexidi 0 Yes [id number] Apply to [facility] ne 4 % 9-22 area(s) ity of external 00:00: once daily [facility] as liquid 00 as needed Medical for Wound Branch care. chlorhexidi 0 Yes [id number] Apply to [facility] ne 4 % 9-22 area(s) ity of external 00:00: once daily [facility] as liquid 00 as needed Medical for Wound Branch care. chlorhexidi 0 Yes [id number] Apply to [facility] ne 4 % 9-22 area(s) ity of external 00:00: once daily [facility] as liquid 00 as needed Medical for Wound Branch care. chlorhexidi 0 Yes [id number] Apply to [facility] ne 4 % 9-22 area(s) ity of external 00:00: once daily [facility] as liquid 00 as needed Medical for Wound Branch care. chlorhexidi 2020-0 Yes [id number] Apply to [facility] ne 4 % 9-22 area(s) ity of external 00:00: once daily [facility] as liquid 00 as needed Medical for Wound Branch care. chlorhexidi 0 Yes [id number] Apply to [facility] ne 4 % 9-22 area(s) ity of external 00:00: once daily [facility] as liquid 00 as needed Medical for Wound Branch care. chlorhexidi 0 Yes [id number] Apply to [facility] ne 4 % 9-22 area(s) ity of external 00:00: once daily [facility] as liquid 00 as needed Medical for Wound Branch care. chlorhexidi 0 Yes [id number] Apply to [facility] ne 4 % 9-22 area(s) ity of external 00:00: once daily [facility] as liquid 00 as needed Medical for Wound Branch care. chlorhexidi 0 Yes [id number] Apply to [facility] ne 4 % 9-22 area(s) ity of external 00:00: once daily [facility] as liquid 00 as needed Medical for Wound Branch care. chlorhexidi 0 Yes [id number] Apply to [facility] ne 4 % 9-22 area(s) ity of external 00:00: once daily [facility] as liquid 00 as needed Medical for Wound Branch care. chlorhexidi 0 Yes [id number] Apply to [facility] ne 4 % 9-22 area(s) ity of external 00:00: once daily [facility] as liquid 00 as needed Medical for Wound Branch care. chlorhexidi 0 Yes [id number] Apply to [facility] ne 4 % 9-22 area(s) ity of external 00:00: once daily [facility] as liquid 00 as needed Medical for Wound Branch care. chlorhexidi 0 Yes [id number] Apply to [facility] ne 4 % 9-22 area(s) ity of external 00:00: once daily [facility] as liquid 00 as needed Medical for Wound Branch care. chlorhexidi 0 Yes [id number] Apply to [facility] ne 4 % 9-22 area(s) ity of external 00:00: once daily [facility] as liquid 00 as needed Medical for Wound Branch care. chlorhexidi 2020-0 Yes [id number] Apply to [facility] ne 4 % 9-22 area(s) ity of external 00:00: once daily [facility] as liquid 00 as needed Medical for Wound Branch care. chlorhexidi 0 Yes [id number] Apply to [facility] ne 4 % 9-22 area(s) ity of external 00:00: once daily [facility] as liquid 00 as needed Medical for Wound Branch care. chlorhexidi 0 Yes [id number] Apply to [facility] ne 4 % 9-22 area(s) ity of external 00:00: once daily [facility] as liquid 00 as needed Medical for Wound Branch care. chlorhexidi 0 Yes [id number] Apply to [facility] ne 4 % 9-22 area(s) ity of external 00:00: once daily [facility] as liquid 00 as needed Medical for Wound Branch care. chlorhexidi 0 Yes [id number] Apply to [facility] ne 4 % 9-22 area(s) ity of external 00:00: once daily [facility] as liquid 00 as needed Medical for Wound Branch care. chlorhexidi 0 Yes [id number] Apply to [facility] ne 4 % 9-22 area(s) ity of external 00:00: once daily [facility] as liquid 00 as needed Medical for Wound Branch care. chlorhexidi 0 Yes [id number] Apply to [facility] ne 4 % 9-22 area(s) ity of external 00:00: once daily [facility] as liquid 00 as needed Medical for Wound Branch care. chlorhexidi 0 Yes [id number] Apply to [facility] ne 4 % 9-22 area(s) ity of external 00:00: once daily [facility] as liquid 00 as needed Medical for Wound Branch care. chlorhexidi 0 Yes [id number] Apply to [facility] ne 4 % 9-22 area(s) ity of external 00:00: once daily [facility] as liquid 00 as needed Medical for Wound Branch care. chlorhexidi 0 Yes [id number] Apply to [facility] ne 4 % 9-22 area(s) ity of external 00:00: once daily [facility] as liquid 00 as needed Medical for Wound Branch care. ONETOUCH Yes [id number] Use as [facility] DELICA PLUS 7-27 directed ity of LANCET 30 00:00: for twice [facility] as gauge Misc 00 a day Medical glucose Branch monitoring for ICD E11.9 ONETOUCH Yes [id number] Use as [facility] DELICA PLUS 7-27 directed ity of LANCET 30 00:00: for twice [facility] as gauge Misc 00 a day Medical glucose Branch monitoring for ICD E11.9 ONETOUCH Yes [id number] Use as [facility] DELICA PLUS 7-27 directed ity of LANCET 30 00:00: for twice [facility] as gauge Misc 00 a day Medical glucose Branch monitoring for ICD E11.9 ONETOUCH 2020-0 Yes [id number] Use as [facility] DELICA PLUS 7-27 directed ity of LANCET 30 00:00: for twice [facility] as gauge Misc 00 a day Medical glucose Branch monitoring for ICD E11.9 ONETOUCH 2020- Yes [id number] Use as [facility] DELICA PLUS 7-27 directed ity of LANCET 30 00:00: for twice [facility] as gauge Misc 00 a day Medical glucose Branch monitoring for ICD E11.9 ONETOUCH Yes [id number] Use as [facility] DELICA PLUS 7-27 directed ity of LANCET 30 00:00: for twice [facility] as gauge Misc 00 a day Medical glucose Branch monitoring for ICD E11.9 ONETOUCH Yes [id number] Use as [facility] DELICA PLUS 7-27 directed ity of LANCET 30 00:00: for twice [facility] as gauge Misc 00 a day Medical glucose Branch monitoring for ICD E11.9 ONETOUCH Yes [id number] Use as [facility] DELICA PLUS 7-27 directed ity of LANCET 30 00:00: for twice [facility] as gauge Misc 00 a day Medical glucose Branch monitoring for ICD E11.9 ONETOUCH Yes [id number] Use as [facility] DELICA PLUS 7-27 directed ity of LANCET 30 00:00: for twice [facility] as gauge Misc 00 a day Medical glucose Branch monitoring for ICD E11.9 ONETOUCH Yes [id number] Use as [facility] DELICA PLUS 7-27 directed ity of LANCET 30 00:00: for twice [facility] as gauge Misc 00 a day Medical glucose Branch monitoring for ICD E11.9 ONETOUCH Yes [id number] Use as [facility] DELICA PLUS 7-27 directed ity of LANCET 30 00:00: for twice [facility] as gauge Misc 00 a day Medical glucose Branch monitoring for ICD E11.9 ONETOUCH 2020- Yes [id number] Use as [facility] DELICA PLUS 7-27 directed ity of LANCET 30 00:00: for twice [facility] as gauge Misc 00 a day Medical glucose Branch monitoring for ICD E11.9 ONETOUCH 2020-0 Yes [id number] Use as [facility] DELICA PLUS 7-27 directed ity of LANCET 30 00:00: for twice [facility] as gauge Misc 00 a day Medical glucose Branch monitoring for ICD E11.9 ONETOUCH 2020-0 Yes [id number] Use as [facility] DELICA PLUS 7-27 directed ity of LANCET 30 00:00: for twice [facility] as gauge Misc 00 a day Medical glucose Branch monitoring for ICD E11.9 ONETOUCH 2020-0 Yes [id number] Use as [facility] DELICA PLUS 7-27 directed ity of LANCET 30 00:00: for twice [facility] as gauge Misc 00 a day Medical glucose Branch monitoring for ICD E11.9 ONETOUCH 2020-0 Yes [id number] Use as [facility] DELICA PLUS 7-27 directed ity of LANCET 30 00:00: for twice [facility]ark[facility] as gauge Misc 00 a day Medical glucose Branch monitoring for ICD E11.9 ONETOUCH 2020-0 Yes [id number] Use as [facility] DELICA PLUS 7-27 directed ity of LANCET 30 00:00: for twice [facility] as gauge Misc 00 a day Medical glucose Branch monitoring for ICD E11.9 ONETOUCH 2020-0 Yes [id number] Use as [facility] DELICA PLUS 7-27 directed ity of LANCET 30 00:00: for twice [facility] as gauge Misc 00 a day Medical glucose Branch monitoring for ICD E11.9 ONETOUCH 2020-0 Yes [id number] Use as [facility] DELICA PLUS 7-27 directed ity of LANCET 30 00:00: for twice [facility] as gauge Misc 00 a day Medical glucose Branch monitoring for ICD E11.9 ONETOUCH 2020-0 Yes [id number] Use as [facility] DELICA PLUS 7-27 directed ity of LANCET 30 00:00: for twice [facility] as gauge Misc 00 a day Medical glucose Branch monitoring for ICD E11.9 ONETOUCH 2020-0 Yes [id number] Use as [facility] DELICA PLUS 7-27 directed ity of LANCET 30 00:00: for twice [facility] as gauge Misc 00 a day Medical glucose Branch monitoring for ICD E11.9 ONETOUCH 2020-0 Yes [id number] Use as [facility] DELICA PLUS 7-27 directed ity of LANCET 30 00:00: for twice [facility] as gauge Misc 00 a day Medical glucose Branch monitoring for ICD E11.9 ONETOUCH 2020-0 Yes [id number] Use as [facility] DELICA PLUS 7-27 directed ity of LANCET 30 00:00: for twice [facility] as gauge Misc 00 a day Medical glucose Branch monitoring for ICD E11.9 ONETOUCH 2020-0 Yes [id number] Use as [facility] DELICA PLUS 7-27 directed ity of LANCET 30 00:00: for twice [facility] as gauge Misc 00 a day Medical glucose Branch monitoring for ICD E11.9 ONETOUCH Yes [id number] Use as [facility] DELICA PLUS 7-27 directed ity of LANCET 30 00:00: for twice [facility] as gauge Misc 00 a day Medical glucose Branch monitoring for ICD E11.9 ONETOUCH Yes [id number] Use as [facility] DELICA PLUS 7-27 directed ity of LANCET 30 00:00: for twice [facility] as gauge Misc 00 a day Medical glucose Branch monitoring for ICD E11.9 ONETOUCH 0 Yes [id number] Use as [facility] DELICA PLUS 7-27 directed ity of LANCET 30 00:00: for twice [facility] as gauge Misc 00 a day Medical glucose Branch monitoring for ICD E11.9 ONETOUCH 0 Yes [id number] Use as [facility] DELICA PLUS 7-27 directed ity of LANCET 30 00:00: for twice [facility] as gauge Misc 00 a day Medical glucose Branch monitoring for ICD E11.9 ONETOUCH 0 Yes [id number] Use as [facility] DELICA PLUS 7-27 directed ity of LANCET 30 00:00: for twice [facility] as gauge Misc 00 a day Medical glucose Branch monitoring for ICD E11.9 ONETOUCH 2020-0 Yes [id number] Use as [facility] DELICA PLUS 7-27 directed ity of LANCET 30 00:00: for twice [facility] as gauge Misc 00 a day Medical glucose Branch monitoring for ICD E11.9 ONETOUCH 2020-0 Yes [id number] Use as [facility] DELICA PLUS 7-27 directed ity of LANCET 30 00:00: for twice [facility] as gauge Misc 00 a day Medical glucose Branch monitoring for ICD E11.9 ONETOUCH 2020-0 Yes [id number] Use as [facility] DELICA PLUS 7-27 directed ity of LANCET 30 00:00: for twice [facility] as gauge Misc 00 a day Medical glucose Branch monitoring for ICD E11.9 ONETOUCH 2020-0 Yes [id number] Use as [facility] DELICA PLUS 7-27 directed ity of LANCET 30 00:00: for twice [facility] as gauge Misc 00 a day Medical glucose Branch monitoring for ICD E11.9 ONETOUCH 2020-0 Yes [id number] Use as [facility] DELICA PLUS 7-27 directed ity of LANCET 30 00:00: for twice [facility] as gauge Misc 00 a day Medical glucose Branch monitoring for ICD E11.9 ONETOUCH 2020-0 Yes [id number] Use as [facility] DELICA PLUS 7-27 directed ity of LANCET 30 00:00: for twice [facility] as gauge Misc 00 a day Medical glucose Branch monitoring for ICD E11.9 ONETOUCH 2020-0 Yes [id number] Use as [facility] DELICA PLUS 7-27 directed ity of LANCET 30 00:00: for twice [facility] as gauge Misc 00 a day Medical glucose Branch monitoring for ICD E11.9 ONETOUCH 2020-0 Yes [id number] Use as [facility] DELICA PLUS 7-27 directed ity of LANCET 30 00:00: for twice [facility] as gauge Misc 00 a day Medical glucose Branch monitoring for ICD E11.9 ONETOUCH 2020-0 Yes [id number] Use as [facility] DELICA PLUS 7-27 directed ity of LANCET 30 00:00: for twice [facility] as gauge Misc 00 a day Medical glucose Branch monitoring for ICD E11.9 ONETOUCH 2020-0 Yes [id number] Use as [facility] DELICA PLUS 7-27 directed ity of LANCET 30 00:00: for twice [facility] as gauge Misc 00 a day Medical glucose Branch monitoring for ICD E11.9 ONETOUCH 2020-0 Yes [id number] Use as [facility] DELICA PLUS 7-27 directed ity of LANCET 30 00:00: for twice [facility] as gauge Misc 00 a day Medical glucose Branch monitoring for ICD E11.9 ONETOUCH 2020-0 Yes [id number] Use as [facility] DELICA PLUS 7-27 directed ity of LANCET 30 00:00: for twice [facility] as gauge Misc 00 a day Medical glucose Branch monitoring for ICD E11.9 ONETOUCH 2020-0 Yes [id number] Use as [facility] DELICA PLUS 7-27 directed ity of LANCET 30 00:00: for twice [facility] as gauge Misc 00 a day Medical glucose Branch monitoring for ICD E11.9 ONETOUCH 2020-0 Yes [id number] Use as [facility] DELICA PLUS 7-27 directed ity of LANCET 30 00:00: for twice [facility] as gauge Misc 00 a day Medical glucose Branch monitoring for ICD E11.9 ONETOUCH 0 Yes [id number] Use as [facility] DELICA PLUS 7-27 directed ity of LANCET 30 00:00: for twice [facility] as gauge Misc 00 a day Medical glucose Branch monitoring for ICD E11.9 ONETOUCH 0 Yes [id number] Use as [facility] DELICA PLUS 7-27 directed ity of LANCET 30 00:00: for twice [facility] as gauge Misc 00 a day Medical glucose Branch monitoring for ICD E11.9 ONETOUCH 2020-0 Yes [id number] Use as [facility] DELICA PLUS 7-27 directed ity of LANCET 30 00:00: for twice [facility] as gauge Misc 00 a day Medical glucose Branch monitoring for ICD E11.9 ONETOUCH 2020-0 Yes [id number] Use as [facility] DELICA PLUS 7-27 directed ity of LANCET 30 00:00: for twice [facility] as gauge Misc 00 a day Medical glucose Branch monitoring for ICD E11.9 ONETOUCH 2020-0 Yes [id number] Use as [facility] DELICA PLUS 7-27 directed ity of LANCET 30 00:00: for twice [facility] as gauge Misc 00 a day Medical glucose Branch monitoring for ICD E11.9 ONETOUCH 2020-0 Yes [id number] Use as [facility] DELICA PLUS 7-27 directed ity of LANCET 30 00:00: for twice [facility] as gauge Misc 00 a day Medical glucose Branch monitoring for ICD E11.9 ONETOUCH 2020-0 Yes [id number] Use as [facility] DELICA PLUS 7-27 directed ity of LANCET 30 00:00: for twice [facility]ark[facility] as gauge Misc 00 a day Medical glucose Branch monitoring for ICD E11.9 ONETOUCH 2020-0 Yes [id number] Use as Un [facility] DELICA PLUS 7-27 directed ity of LANCET 30 00:00: for twice [place] as gauge Misc 00 a day Medical glucose Branch monitoring for ICD E11.9 ONETOUCH 2020-0 Yes [id number] Use as Un [facility] DELICA PLUS 7-27 directed ity of LANCET 30 00:00: for twice [place] as gauge Misc 00 a day Medical glucose Branch monitoring for ICD E11.9 ONETOUCH 2020-0 Yes [id number] Use as Un [facility] DELICA PLUS 7-27 directed ity of LANCET 30 00:00: for twice [place] as gauge Misc 00 a day Medical glucose Branch monitoring for ICD E11.9 ONETOUCH 2020-0 Yes [id number] Use as Un justice DELICA PLUS 7-27 directed ity of LANCET 30 00:00: for twice [place] as gauge Misc 00 a day Medical glucose Branch monitoring for ICD E11.9 ONETOUCH 2020-0 Yes [id number] Use as Un justice DELICA PLUS 7-27 directed ity of LANCET 30 00:00: for twice [place] as gauge Misc 00 a day Medical glucose Branch monitoring for ICD E11.9 ONETOUCH 2020-0 Yes [id number] Use as Un justice DELICA PLUS 7-27 directed ity of LANCET 30 00:00: for twice [place] as gauge Misc 00 a day Medical glucose Branch monitoring for ICD E11.9 ONETOUCH 2020-0 Yes [id number] Use as Un justice DELICA PLUS 7-27 directed ity of LANCET 30 00:00: for twice [place] as gauge Misc 00 a day Medical glucose Branch monitoring for ICD E11.9 ONETOUCH 2020-0 Yes [id number] Use as Un justice DELICA PLUS 7-27 directed ity of LANCET 30 00:00: for twice [place] as gauge Misc 00 a day Medical glucose Branch monitoring for ICD E11.9 ONETOUCH 2020-0 Yes [id number] Use as Un justice DELICA PLUS 7-27 directed ity of LANCET 30 00:00: for twice [place] as gauge Misc 00 a day Medical glucose Branch monitoring for ICD E11.9 ONETOUCH 2020-0 Yes [id number] Use as Un justice DELICA PLUS 7-27 directed ity of LANCET 30 00:00: for twice [place] as gauge Misc 00 a day Medical glucose Branch monitoring for ICD E11.9 ONETOUCH 2020-0 Yes [id number] Use as Un justice DELICA PLUS 7-27 directed ity of LANCET 30 00:00: for twice [place] as gauge Misc 00 a day Medical glucose Branch monitoring for ICD E11.9 ONETOUCH 2020-0 Yes [id number] Use as Un justice DELICA PLUS 7-27 directed ity of LANCET 30 00:00: for twice [place] as gauge Misc 00 a day Medical glucose Branch monitoring for ICD E11.9 ONETOUCH 2020-0 Yes [id number] Use as Un justice DELICA PLUS 7-27 directed ity of LANCET 30 00:00: for twice [place] as gauge Misc 00 a day Medical glucose Branch monitoring for ICD E11.9 ONETOUCH 2020-0 Yes [id number] Use as Un justice DELICA PLUS 7-27 directed ity of LANCET 30 00:00: for twice [place] as gauge Misc 00 a day Medical glucose Branch monitoring for ICD E11.9 ONETOUCH 2020-0 Yes [id number] Use as Un [facility] DELICA PLUS 7-27 directed ity of LANCET 30 00:00: for twice [place] as gauge Misc 00 a day Medical glucose Branch monitoring for ICD E11.9 ONETOUCH 2020-0 Yes [id number] Use as Un [facility] DELICA PLUS 7-27 directed ity of LANCET 30 00:00: for twice [place] as gauge Misc 00 a day Medical glucose Branch monitoring for ICD E11.9 ONETOUCH 2020-0 Yes [id number] Use as Un [facility] DELICA PLUS 7-27 directed ity of LANCET 30 00:00: for twice [place] as gauge Misc 00 a day Medical glucose Branch monitoring for ICD E11.9 ONETOUCH 2020-0 Yes [id number] Use as Un [facility] DELICA PLUS 7-27 directed ity of LANCET 30 00:00: for twice [place] as gauge Misc 00 a day Medical glucose Branch monitoring for ICD E11.9 ONETOUCH 2021-0 Yes [id number] Use as Un [facility] DELICA PLUS 7-27 directed ity of LANCET 30 00:00: for twice [place] as gauge Misc 00 a day Medical glucose Branch monitoring for ICD E11.9 ONETOUCH Yes [id number] Use as Un [facility] DELICA PLUS 7-27 directed ity of LANCET 30 00:00: for twice [place] as gauge Misc 00 a day Medical glucose Branch monitoring for ICD E11.9 ONETOUCH Yes [id number] Use as Un [facility] DELICA PLUS 7-27 directed ity of LANCET 30 00:00: for twice [place] as gauge Misc 00 a day Medical glucose Branch monitoring for ICD E11.9 ONETOUCH Yes [id number] Use as Un [facility] DELICA PLUS 7-27 directed ity of LANCET 30 00:00: for twice [place] as gauge Misc 00 a day Medical glucose Branch monitoring for ICD E11.9 ONETOUCH Yes [id number] Use as Un [facility] DELICA PLUS 7-27 directed ity of LANCET 30 00:00: for twice [place] as gauge Misc 00 a day Medical glucose Branch monitoring for ICD E11.9 ONETOUCH Yes [id number] Use as Un [facility] DELICA PLUS 7-27 directed ity of LANCET 30 00:00: for twice [place] as gauge Misc 00 a day Medical glucose Branch monitoring for ICD E11.9 ONETOUCH Yes [id number] Use as Un justice DELICA PLUS 7-27 directed ity of LANCET 30 00:00: for twice [place] as gauge Misc 00 a day Medical glucose Branch monitoring for ICD E11.9 ONETOUCH Yes [id number] Use as Un [facility] DELICA PLUS 7-27 directed ity of LANCET 30 00:00: for twice [place] as gauge Misc 00 a day Medical glucose Branch monitoring for ICD E11.9 ONETOUCH Yes [id number] Use as Un justice DELICA PLUS 7-27 directed ity of LANCET 30 00:00: for twice [place] as gauge Misc 00 a day Medical glucose Branch monitoring for ICD E11.9 [facility] [place] Yes [id number] 75mg Take 1 [facility] 75 mg EC 04-04 [id number] tablet by ity of tablet 00:00: mouth [place] (two) Medical times Branch daily with meals. diclofenac 2020-0 Yes [id number] 75mg Take 1 [facility] 75 mg EC 9-02 [id number] tablet by ity of tablet 00:00: mouth [place] (two) Medical times Branch daily with meals. diclofenac 2020-0 Yes [id number] 75mg Take 1 [facility] 75 mg EC 9-02 [id number] tablet by ity of tablet 00:00: mouth [place] (two) Medical times Branch daily with meals. diclofenac 2020-0 Yes [id number] 75mg Take 1 [facility] 75 mg EC 9-02 [id number] tablet by ity of tablet 00:00: mouth [place] (two) Medical times Branch daily with meals. diclofenac 2020-0 Yes [id number] 75mg Take 1 [facility] 75 mg EC 9-02 [id number] tablet by ity of tablet 00:00: mouth [place] (two) Medical times Branch daily with meals. diclofenac 2020-0 Yes [id number] 75mg Take 1 [facility] 75 mg EC 9-02 [id number] tablet by ity of tablet 00:00: mouth [place] (two) Medical times Branch daily with meals. diclofenac 2020-0 Yes [id number] 75mg Take 1 [facility] 75 mg EC 9-02 [id number] tablet by ity of tablet 00:00: mouth [place] (two) Medical times Branch daily with meals. diclofenac 2020-0 Yes [id number] 75mg Take 1 [facility] 75 mg EC 9-02 [id number] tablet by ity of tablet 00:00: mouth [place] (two) Medical times Branch daily with meals. diclofenac 2020-0 Yes [id number] 75mg Take 1 [facility] 75 mg EC 9-02 [id number] tablet by ity of tablet 00:00: mouth [place] (two) Medical times Branch daily with meals. diclofenac 2020-0 Yes [id number] 75mg Take 1 [facility] 75 mg EC 9-02 [id number] tablet by ity of tablet 00:00: mouth [place] (two) Medical times Branch daily with meals. diclofenac 2020-0 Yes [id number] 75mg Take 1 [facility] 75 mg EC 9-02 [id number] tablet by ity of tablet 00:00: mouth [place] (two) Medical times Branch daily with meals. diclofenac 2020-0 Yes [id number] 75mg Take 1 [facility] 75 mg EC 9-02 [id number] tablet by ity of tablet 00:00: mouth (two) Medical times Branch daily with meals. diclofenac 2020-0 Yes [id number] 75mg Take 1 [facility] 75 mg EC 9- [id number] tablet by ity of tablet 00:00: mouth 2 (two) Medical times Branch daily with meals. diclofenac 2020-0 Yes [id number] 75mg Take 1 [facility] 75 mg EC 9- [id number] tablet by ity of tablet 00:00: mouth (two) Medical times Branch daily with meals. diclofenac 2020-0 Yes [id number] 75mg Take 1 [facility] 75 mg EC 9- [id number] tablet by ity of tablet 00:00: mouth (two) Medical times Branch daily with meals. diclofenac 2020-0 Yes [id number] 75mg Take 1 [facility] 75 mg EC 9- [id number] tablet by ity of tablet 00:00: mouth (two) Medical times Branch daily with meals. diclofenac 2020-0 Yes [id number] 75mg Take 1 [facility] 75 mg EC 9- [id number] tablet by ity of tablet 00:00: mouth (two) Medical times Branch daily with meals. diclofenac 2020-0 Yes [id number] 75mg Take 1 [facility] 75 mg EC 9- [id number] tablet by ity of tablet 00:00: mouth (two) Medical times Branch daily with meals. diclofenac 2020-0 Yes [id number] 75mg Take 1 [facility] 75 mg EC 9- [id number] tablet by ity of tablet 00:00: mouth [place] (two) Medical times Branch daily with meals. diclofenac 2020-0 Yes [id number] 75mg Take 1 [facility] 75 mg EC 9- 706814 tablet by ity of tablet 00:00: mouth (two) Medical times Branch daily with meals. diclofenac 2020-0 Yes [id number] 75mg Take 1 [facility] 75 mg EC 9- 638920 tablet by ity of tablet 00:00: mouth 2 (two) Medical times Branch daily with meals. diclofenac 2020-0 Yes [id number] 75mg Take 1 [facility] 75 mg EC 9- 825834 tablet by ity of tablet 00:00: mouth 2 (two) Medical times Branch daily with meals. diclofenac 2020-0 Yes [id number] 75mg Take 1 [facility] 75 mg EC 9-02 [id number] tablet by ity of tablet 00:00: mouth 2 [place] (two) Medical times Branch daily with meals. diclofenac 2020-0 Yes [id number] 75mg Take 1 [facility] 75 mg EC 9-02 [id number] tablet by ity of tablet 00:00: mouth 2 [place] (two) Medical times Branch daily with meals. diclofenac 2020-0 Yes [id number] 75mg Take 1 [facility] 75 mg EC 9-02 [id number] tablet by ity of tablet 00:00: mouth 2 [place] (two) Medical times Branch daily with meals. diclofenac 2020-0 Yes [id number] 75mg Take 1 [facility] 75 mg EC 9-02 [id number] tablet by ity of tablet 00:00: mouth [place] (two) Medical times Branch daily with meals. diclofenac 2020-0 Yes [id number] 75mg Take 1 [facility] 75 mg EC 9-02 [id number] tablet by ity of tablet 00:00: mouth [place] (two) Medical times Branch daily with meals. diclofenac 2020-0 Yes [id number] 75mg Take 1 [facility] 75 mg EC 9-02 [id number] tablet by ity of tablet 00:00: mouth [place] (two) Medical times Branch daily with meals. diclofenac 2020-0 Yes [id number] 75mg Take 1 [facility] 75 mg EC 9-02 [id number] tablet by ity of tablet 00:00: mouth [place] (two) Medical times Branch daily with meals. diclofenac 2020-0 Yes [id number] 75mg Take 1 [facility] 75 mg EC 9-02 [id number] tablet by ity of tablet 00:00: mouth [place] (two) Medical times Branch daily with meals. diclofenac 2020-0 Yes [id number] 75mg Take 1 [facility] 75 mg EC 9-02 [id number] tablet by ity of tablet 00:00: mouth [place] (two) Medical times Branch daily with meals. diclofenac 2020-0 Yes [id number] 75mg Take 1 [facility] 75 mg EC 9-02 [id number] tablet by ity of tablet 00:00: mouth 2 [place] (two) Medical times Branch daily with meals. diclofenac 2020-0 Yes [id number] 75mg Take 1 [facility] 75 mg EC 9-02 [id number] tablet by ity of tablet 00:00: mouth 2 [place] (two) Medical times Branch daily with meals. diclofenac 2020-0 Yes [id number] 75mg Take 1 [facility] 75 mg EC 9-02 [id number] tablet by ity of tablet 00:00: mouth (two) Medical times Branch daily with meals. diclofenac 2020-0 Yes [id number] 75mg Take 1 [facility] 75 mg EC 9-02 [id number] tablet by ity of tablet 00:00: mouth (two) Medical times Branch daily with meals. diclofenac 2020-0 Yes [id number] 75mg Take 1 [facility] 75 mg EC 9-02 [id number] tablet by ity of tablet 00:00: mouth (two) Medical times Branch daily with meals. diclofenac 2020-0 Yes [id number] 75mg Take 1 [facility] 75 mg EC 9-02 [id number] tablet by ity of tablet 00:00: mouth (two) Medical times Branch daily with meals. diclofenac 2020-0 Yes [id number] 75mg Take 1 [facility] 75 mg EC 9-02 [id number] tablet by ity of tablet 00:00: mouth (two) Medical times Branch daily with meals. diclofenac 2020-0 Yes [id number] 75mg Take 1 [facility] 75 mg EC 9-02 [id number] tablet by ity of tablet 00:00: mouth (two) Medical times Branch daily with meals. diclofenac 2020-0 Yes [id number] 75mg Take 1 [facility] 75 mg EC 9-02 [id number] tablet by ity of tablet 00:00: mouth (two) Medical times Branch daily with meals. diclofenac 2020-0 Yes [id number] 75mg Take 1 [facility] 75 mg EC 9-02 [id number] tablet by ity of tablet 00:00: mouth (two) Medical times Branch daily with meals. diclofenac 2020-0 Yes [id number] 75mg Take 1 [facility] 75 mg EC 9-02 [id number] tablet by ity of tablet 00:00: mouth (two) Medical times Branch daily with meals. diclofenac 2020-0 Yes [id number] 75mg Take 1 [facility] 75 mg EC 9-02 [id number] tablet by ity of tablet 00:00: mouth 2 (two) Medical times Branch daily with meals. diclofenac 2020-0 Yes [id number] 75mg Take 1 [facility] 75 mg EC 9-02 [id number] tablet by ity of tablet 00:00: mouth 2 (two) Medical times Branch daily with meals. diclofenac 2020-0 Yes [id number] 75mg Take 1 [facility] 75 mg EC 9-02 [id number] tablet by ity of tablet 00:00: mouth (two) Medical times Branch daily with meals. diclofenac 2020-0 Yes [id number] 75mg Take 1 [facility] 75 mg EC 9-02 [id number] tablet by ity of tablet 00:00: mouth (two) Medical times Branch daily with meals. diclofenac 2020-0 Yes [id number] 75mg Take 1 [facility] 75 mg EC 9-02 [id number] tablet by ity of tablet 00:00: mouth (two) Medical times Branch daily with meals. diclofenac 2020-0 Yes [id number] 75mg Take 1 [facility] 75 mg EC 9-02 [id number] tablet by ity of tablet 00:00: mouth (two) Medical times Branch daily with meals. diclofenac 2020-0 Yes [id number] 75mg Take 1 [facility] 75 mg EC 9-02 [id number] tablet by ity of tablet 00:00: mouth (two) Medical times Branch daily with meals. diclofenac 2020-0 Yes [id number] 75mg Take 1 [facility] 75 mg EC 9-02 [id number] tablet by ity of tablet 00:00: mouth (two) Medical times Branch daily with meals. diclofenac 2020-0 Yes [id number] 75mg Take 1 [facility] 75 mg EC 9-02 [id number] tablet by ity of tablet 00:00: mouth (two) Medical times Branch daily with meals. diclofenac 2020-0 Yes [id number] 75mg Take 1 [facility] 75 mg EC 9-02 [id number] tablet by ity of tablet 00:00: mouth (two) Medical times Branch daily with meals. diclofenac 2020-0 Yes [id number] 75mg Take 1 [facility] 75 mg EC 9-02 [id number] tablet by ity of tablet 00:00: mouth (two) Medical times Branch daily with meals. diclofenac 2020-0 Yes [id number] 75mg Take 1 [facility] 75 mg EC 9-02 [id number] tablet by ity of tablet 00:00: mouth 2 (two) Medical times Branch daily with meals. diclofenac 2020-0 Yes [id number] 75mg Take 1 [facility] 75 mg EC 9-02 [id number] tablet by ity of tablet 00:00: mouth (two) Medical times Branch daily with meals. diclofenac 2020-0 Yes [id number] 75mg Take 1 [facility] 75 mg EC 9-02 [id number] tablet by ity of tablet 00:00: mouth (two) Medical times Branch daily with meals. diclofenac 2020-0 Yes [id number] 75mg Take 1 [facility] 75 mg EC 9-02 [id number] tablet by ity of tablet 00:00: mouth (two) Medical times Branch daily with meals. diclofenac 2020-0 Yes [id number] 75mg Take 1 [facility] 75 mg EC 9-02 [id number] tablet by ity of tablet 00:00: mouth (two) Medical times Branch daily with meals. diclofenac 2020-0 Yes [id number] 75mg Take 1 [facility] 75 mg EC 9-02 [id number] tablet by ity of tablet 00:00: mouth (two) Medical times Branch daily with meals. diclofenac 2020-0 Yes [id number] 75mg Take 1 [facility] 75 mg EC 9-02 [id number] tablet by ity of tablet 00:00: mouth (two) Medical times Branch daily with meals. diclofenac 2020-0 Yes [id number] 75mg Take 1 [facility] 75 mg EC 9-02 [id number] tablet by ity of tablet 00:00: mouth [place] (two) Medical times Branch daily with meals. diclofenac 2020-0 Yes [id number] 75mg Take 1 [facility] 75 mg EC 9-02 [id number] tablet by ity of tablet 00:00: mouth (two) Medical times Branch daily with meals. diclofenac 2020-0 Yes [id number] 75mg Take 1 [facility] 75 mg EC 9-02 [id number] tablet by ity of tablet 00:00: mouth (two) Medical times Branch daily with meals. diclofenac 2020-0 Yes [id number] 75mg Take 1 [facility] 75 mg EC 9-02 [id number] tablet by ity of tablet 00:00: mouth [place] (two) Medical times Branch daily with meals. diclofenac 2020-0 Yes [id number] 75mg Take 1 [facility] 75 mg EC 9-02 [id number] tablet by ity of tablet 00:00: mouth 2 (two) Medical times Branch daily with meals. diclofenac 2020-0 Yes [id number] 75mg Take 1 [facility] 75 mg EC 9-02 [id number] tablet by ity of tablet 00:00: mouth 2 (two) Medical times Branch daily with meals. diclofenac 2020-0 Yes [id number] 75mg Take 1 [facility] 75 mg EC 9-02 [id number] tablet by ity of tablet 00:00: mouth 2 (two) Medical times Branch daily with meals. diclofenac 2020-0 Yes [id number] 75mg Take 1 [facility] 75 mg EC 9-02 [id number] tablet by ity of tablet 00:00: mouth 2 (two) Medical times Branch daily with meals. diclofenac 2020-0 Yes [id number] 75mg Take 1 [facility] 75 mg EC 9-02 [id number] tablet by ity of tablet 00:00: mouth 2 (two) Medical times Branch daily with meals. diclofenac 2020-0 Yes [id number] 75mg Take 1 [facility] 75 mg EC 9-02 [id number] tablet by ity of tablet 00:00: mouth [place] (two) Medical times Branch daily with meals. diclofenac 2020-0 Yes [id number] 75mg Take 1 [facility] 75 mg EC 9-02 [id number] tablet by ity of tablet 00:00: mouth [place] (two) Medical times Branch daily with meals. diclofenac 2020-0 Yes [id number] 75mg Take 1 [facility] 75 mg EC 9-02 [id number] tablet by ity of tablet 00:00: mouth [place] (two) Medical times Branch daily with meals. diclofenac 2020-0 Yes [id number] 75mg Take 1 [facility] 75 mg EC 9-02 [id number] tablet by ity of tablet 00:00: mouth [place] (two) Medical times Branch daily with meals. diclofenac 2020-0 Yes [id number] 75mg Take 1 [facility] 75 mg EC 9-02 [id number] tablet by ity of tablet 00:00: mouth [place] (two) Medical times Branch daily with meals. diclofenac 2020-0 Yes [id number] 75mg Take 1 [facility] 75 mg EC 9-02 [id number] tablet by ity of tablet 00:00: mouth 2 [place] (two) Medical times Branch daily with meals. diclofenac 2020-0 Yes [id number] 75mg Take 1 [facility] 75 mg EC 9-02 [id number] tablet by ity of tablet 00:00: mouth 2 [place] (two) Medical times Branch daily with meals. diclofenac 2020-0 Yes [id number] 75mg Take 1 [facility] 75 mg EC 9-02 [id number] tablet by ity of tablet 00:00: mouth 2 [place] (two) Medical times Branch daily with meals. Miscellaneo 2020-0 Yes [id number] J40: Un [facility] 11-22 [place] ity of Supply Kit 00:00: - Dispense [place] 00 # 1 [facility] [place] [facility] Respironic s (okay for alternativ e brand) for nebulizer treatment Miscellaneo 2020-0 Yes [id number] J40: Un [facility] 11-22 [place] ity of Supply Kit 00:00: - Dispense [place] 00 # 1 [facility] [place] [facility] Respironic s (okay for alternativ e brand) for nebulizer treatment Miscellaneo 2020-0 Yes [id number] J40: Un [facility] 11-22 [place] ity of Supply Kit 00:00: - Dispense [place] 00 # 1 [facility] [place] [facility] Respironic s (okay for alternativ e brand) for nebulizer treatment Miscellaneo 2020-0 Yes [id number] J40: Un [facility] 11-22 [place] ity of Supply Kit 00:00: - Dispense [place] 00 # 1 [facility] Respironic s (okay for alternativ e brand) for nebulizer treatment Miscellaneo 2020-0 Yes [id number] J40: Un [facility] 11-22 [place] ity of Supply Kit 00:00: - Dispense [place] 00 # 1 [facility] Respironic s (okay for alternativ e brand) for nebulizer treatment Miscellaneo 2020-0 Yes [id number] J40: Un [facility] 11-22 [place] ity of Supply Kit 00:00: - Dispense [place] 00 # 1 [facility] Respironic s (okay for alternativ e brand) for nebulizer treatment Miscellaneo 2020-0 Yes [id number] J40: Un [facility] 11-22 [place] ity of Supply Kit 00:00: - Dispense [place] 00 # 1 [facility] Respironic s (okay for alternativ e brand) for nebulizer treatment Miscellaneo 2020-0 Yes [id number] J40: Un [facility] 11-22 [place] ity of Supply Kit 00:00: - Dispense [place] 00 # 1 [facility] Respironic s (okay for alternativ e brand) for nebulizer treatment Miscellaneo 2020-0 Yes [id number] J40: Un [facility] 11-22 [place] ity of Supply Kit 00:00: - Dispense [place] 00 # 1 [facility] Respironic s (okay for alternativ e brand) for nebulizer treatment Miscellaneo 2020-0 Yes [id number] J40: Un [facility] 11-22 [place] ity of Supply Kit 00:00: - Dispense [place] 00 # 1 [facility] Respironic s (okay for alternativ e brand) for nebulizer treatment Miscellaneo 2020-0 Yes [id number] J40: Un [facility] 11-22 [place] ity of Supply Kit 00:00: - Dispense [place] 00 # 1 [facility] Respironic s (okay for alternativ e brand) for nebulizer treatment Miscellaneo 2020-0 Yes [id number] J40: Un [facility] 11-22 [place] ity of Supply Kit 00:00: - Dispense [place] 00 # 1 [facility] Respironic s (okay for alternativ e brand) for nebulizer treatment Miscellaneo 2020-0 Yes [id number] J40: Un [facility] 11-22 [place] ity of Supply Kit 00:00: - Dispense [place] 00 # 1 [facility] Respironic s (okay for alternativ e brand) for nebulizer treatment Miscellaneo 2020-0 Yes [id number] J40: Un [facility] 11-22 [place] ity of Supply Kit 00:00: - Dispense [place] 00 # 1 [facility] Respironic s (okay for alternativ e brand) for nebulizer treatment Miscellaneo 2020-0 Yes [id number] J40: Un [facility] 11-22 [place] ity of Supply Kit 00:00: - Dispense [place] 00 # 1 [facility] Respironic s (okay for alternativ e brand) for nebulizer treatment Miscellaneo 2020-0 Yes [id number] J40: Un [facility] 11-22 [place] ity of Supply Kit 00:00: - Dispense [place] 00 # 1 [facility] Respironic s (okay for alternativ e brand) for nebulizer treatment Miscellaneo 2020-0 Yes [id number] J40: Un [facility] 11-22 [place] ity of Supply Kit 00:00: - Dispense [place] 00 # 1 [facility] Respironic s (okay for alternativ e brand) for nebulizer treatment Miscellaneo 2020-0 Yes [id number] J40: Un [facility] 11-22 [place] ity of Supply Kit 00:00: - Dispense [place] 00 # 1 [facility] Respironic s (okay for alternativ e brand) for nebulizer treatment Miscellaneo 2020-0 Yes [id number] J40: Un [facility] 11-22 [place] ity of Supply Kit 00:00: - Dispense [place] 00 # 1 [facility] Respironic s (okay for alternativ e brand) for nebulizer treatment Miscellaneo 2020-0 Yes [id number] J40: Un [facility] 11-22 [place] ity of Supply Kit 00:00: - Dispense [place] 00 # 1 [facility] Respironic s (okay for alternativ e brand) for nebulizer treatment Miscellaneo 2020-0 Yes [id number] J40: Un [facility] 11-22 [place] ity of Supply Kit 00:00: - Dispense [place] 00 # 1 [facility] Respironic s (okay for alternativ e brand) for nebulizer treatment Miscellaneo 2020-0 Yes [id number] J40: Un [facility] 11-22 [place] ity of Supply Kit 00:00: - Dispense [place] 00 # 1 [facility] Respironic s (okay for alternativ e brand) for nebulizer treatment Miscellaneo 2020-0 Yes [id number] J40: Un [facility] 11-22 [place] ity of Supply Kit 00:00: - Dispense [place] 00 # 1 [facility] Respironic s (okay for alternativ e brand) for nebulizer treatment Miscellaneo 2020-0 Yes [id number] J40: Un [facility] 11-22 [place] ity of Supply Kit 00:00: - Dispense [place] 00 # 1 [facility] Respironic s (okay for alternativ e brand) for nebulizer treatment Miscellaneo 2020-0 Yes [id number] J40: Un [facility] 11-22 [place] ity of Supply Kit 00:00: - Dispense [place] 00 # 1 [facility] Respironic s (okay for alternativ e brand) for nebulizer treatment Miscellaneo 2020-0 Yes [id number] J40: Un [facility] 11-22 [place] ity of Supply Kit 00:00: - Dispense [place] 00 # 1 [facility] Respironic s (okay for alternativ e brand) for nebulizer treatment Miscellaneo 2020-0 Yes [id number] J40: Un [facility] 11-22 [place] ity of Supply Kit 00:00: - Dispense [place] 00 # 1 [facility] Respironic s (okay for alternativ e brand) for nebulizer treatment Miscellaneo 2020-0 Yes [id number] J40: Un [facility] 11-22 [place] ity of Supply Kit 00:00: - Dispense [place] 00 # 1 [facility] Respironic s (okay for alternativ e brand) for nebulizer treatment Miscellaneo 2020-0 Yes [id number] J40: Un [facility] 11-22 [place] ity of Supply Kit 00:00: - Dispense [place] 00 # 1 [facility] Respironic s (okay for alternativ e brand) for nebulizer treatment Miscellaneo 2020-0 Yes [id number] J40: Un [facility] 11-22 [place] ity of Supply Kit 00:00: - [facility] [place] [facility] Respironic s (okay for alternativ e brand) for nebulizer treatment Miscellaneo 2020-0 Yes [id number] J40: Un [facility] 11-22 [place] ity of Supply Kit 00:00: - [place] [facility] Respironic s (okay for alternativ e brand) for nebulizer treatment Miscellaneo 2020-0 Yes [id number] J40: Un [facility] 11-22 Bro[place] ity of Supply Kit 00:00: - [place] [facility] 1 [facility] Respironic s (okay for alternativ e brand) for nebulizer treatment Miscellaneo 2020-0 Yes [id number] J40: Un [facility] 11-22 [place] ity of Supply Kit 00:00: - [place] [facility] 1 [facility] Respironic s (okay for alternativ e brand) for nebulizer treatment Miscellaneo 2020-0 Yes [id number] J40: Un [facility] 11-22 Bro[place] ity of Supply Kit 00:00: - [place] [facility] 1 [facility] Respironic s (okay for alternativ e brand) for nebulizer treatment Miscellaneo 2020-0 Yes [id number] J40: Un [facility] 11-22 [place] ity of Supply Kit 00:00: - [place] [facility] 1 [facility] Respironic s (okay for alternativ e brand) for nebulizer treatment Miscellaneo 2020-0 Yes [id number] J40: Un [facility] 11-22 Bro[place] ity of Supply Kit 00:00: - [place] [facility] # 1 [facility] Respironic s (okay for alternativ e brand) for nebulizer treatment Miscellaneo 2020-0 Yes [id number] J40: Un [facility] 11-22 Bro[place] ity of Supply Kit 00:00: - [place] [facility] 1 [facility] Respironic s (okay for alternativ e brand) for nebulizer treatment Miscellaneo 2020-0 Yes [id number] J40: Un [facility] 11-22 [place] ity of Supply Kit 00:00: - [place] [facility] 1 [facility] Respironic s (okay for alternativ e brand) for nebulizer treatment Miscellaneo 2020-0 Yes [id number] J40: Un [facility] 11-22 [place] ity of Supply Kit 00:00: - [place] [facility] 1 [facility] Respironic s (okay for alternativ e brand) for nebulizer treatment Miscellaneo 2020-0 Yes [id number] J40: Un [facility] 11-22 [place] ity of Supply Kit 00:00: - [place] [facility] # 1 [facility] Respironic s (okay for alternativ e brand) for nebulizer treatment Miscellaneo 2020-0 Yes [id number] J40: Un [facility] 11-22 [place] ity of Supply Kit 00:00: - [place] [facility] 1 [facility] Respironic s (okay for alternativ e brand) for nebulizer treatment Miscellaneo 2020-0 Yes [id number] J40: Un [facility] 11-22 [place] ity of Supply Kit 00:00: - [place] [facility] # 1 [facility] Respironic s (okay for alternativ e brand) for nebulizer treatment Miscellaneo 2020-0 Yes [id number] J40: Un [facility] 11-22 [place] ity of Supply Kit 00:00: - [place] [facility] # 1 [facility] Respironic s (okay for alternativ e brand) for nebulizer treatment Miscellaneo 2020-0 Yes [id number] J40: Un [facility] 11-22 [place] ity of Supply Kit 00:00: - [place] [facility] # 1 [facility] Respironic s (okay for alternativ e brand) for nebulizer treatment Miscellaneo 2020-0 Yes [id number] J40: Un [facility] 11-22 [place] ity of Supply Kit 00:00: - [place] [facility] # 1 [facility] Respironic s (okay for alternativ e brand) for nebulizer treatment Miscellaneo 2020-0 Yes [id number] J40: Un [facility] 11-22 [place] ity of Supply Kit 00:00: - [place] [facility] # 1 [facility] Respironic s (okay for alternativ e brand) for nebulizer treatment Miscellaneo 2020-0 Yes [id number] J40: Un [facility] Bro[place]itis ity of Supply Kit 00:00: - [place] [facility] # 1 [facility] Respironic s (okay for alternativ e brand) for nebulizer treatment Miscellaneo 2020-0 Yes [id number] J40: Un [facility] 11-22 [place] ity of Supply Kit 00:00: - [place] 00 # 1 [facility] Respironic s (okay for alternativ e brand) for nebulizer treatment Miscellaneo 2020-0 Yes [id number] J40: Un [facility] 11-22 [place] ity of Supply Kit 00:00: - [place] 00 # 1 [facility] Respironic s (okay for alternativ e brand) for nebulizer treatment Miscellaneo 2020-0 Yes [id number] J40: Un [facility] 11-22 [place] ity of Supply Kit 00:00: - [place] [facility] # 1 [facility] Respironic s (okay for alternativ e brand) for nebulizer treatment Miscellaneo 2020-0 Yes [id number] J40: Un [facility] 11-22 [place] ity of Supply Kit 00:00: - [place] 00 # 1 [facility] Respironic s (okay for alternativ e brand) for nebulizer treatment Miscellaneo 2020-0 Yes [id number] J40: Un [facility] 11-22 [place] ity of Supply Kit 00:00: - [place] 00 # 1 [facility] Respironic s (okay for alternativ e brand) for nebulizer treatment Miscellaneo 2020-0 Yes [id number] J40: Un [facility] 11-22 [place] ity of Supply Kit 00:00: - [place] 00 # 1 [facility] Respironic s (okay for alternativ e brand) for nebulizer treatment Miscellaneo 2020-0 Yes [id number] J40: Un [facility] 11-22 [place] ity of Supply Kit 00:00: - [place] 00 # 1 [facility] Respironic s (okay for alternativ e brand) for nebulizer treatment Miscellaneo 2020-0 Yes [id number] J40: Un [facility] 11-22 [place] ity of Supply Kit 00:00: - [place] 00 # 1 [facility] Respironic s (okay for alternativ e brand) for nebulizer treatment Miscellaneo 2020-0 Yes [id number] J40: Un [facility] 11-22 [place] ity of Supply Kit 00:00: - [place] 00 # 1 [facility] Respironic s (okay for alternativ e brand) for nebulizer treatment Miscellaneo 2020-0 Yes [id number] J40: Un [facility] 11-22 [place] ity of Supply Kit 00:00: - [place] 00 # 1 [facility] Respironic s (okay for alternativ e brand) for nebulizer treatment Miscellaneo 2020-0 Yes [id number] J40: Un [facility] 11-22 [place] ity of Supply Kit 00:00: - [place] [facility] # 1 [facility] Respironic s (okay for alternativ e brand) for nebulizer treatment Miscellaneo 2020-0 Yes [id number] J40: Un [facility] 11-22 [place] ity of Supply Kit 00:00: - [place] 00 # 1 [facility] Respironic s (okay for alternativ e brand) for nebulizer treatment Miscellaneo 2020-0 Yes [id number] J40: Un [facility] 11-22 [place] ity of Supply Kit 00:00: - [place] 00 # 1 [facility] Respironic s (okay for alternativ e brand) for nebulizer treatment Miscellaneo 2020-0 Yes [id number] J40: Un [facility] 11-22 [place] ity of Supply Kit 00:00: - [place] 00 # 1 [facility] Respironic s (okay for alternativ e brand) for nebulizer treatment Miscellaneo 2020-0 Yes [id number] J40: Un [facility] 11-22 [place] ity of Supply Kit 00:00: - [place] 00 # 1 [facility] Respironic s (okay for alternativ e brand) for nebulizer treatment Miscellaneo 2020-0 Yes [id number] J40: Un [facility] [place] ity of Supply Kit 00:00: - [place] 00 # 1 [facility] Respironic s (okay for alternativ e brand) for nebulizer treatment Miscellaneo 2020-0 Yes [id number] J40: Un [facility] 11-22 [place] ity of Supply Kit 00:00: - [place] 00 # 1 [facility] Respironic s (okay for alternativ e brand) for nebulizer treatment Miscellaneo 2020-0 Yes [id number] J40: Un [facility] 11-22 [place] ity of Supply Kit 00:00: - [place] 00 # 1 [facility] Respironic s (okay for alternativ e brand) for nebulizer treatment Miscellaneo 2020-0 Yes [id number] J40: Un [facility] 11-22 [place] ity of Supply Kit 00:00: - [place] 00 # 1 [facility] Respironic s (okay for alternativ e brand) for nebulizer treatment Miscellaneo 2020-0 Yes [id number] J40: Un [facility] 11-22 [place] ity of Supply Kit 00:00: - [place] 00 # 1 [facility] Respironic s (okay for alternativ e brand) for nebulizer treatment Miscellaneo 2020-0 Yes [id number] J40: Un [facility] 11-22 [place] ity of Supply Kit 00:00: - [place] 00 # 1 [facility] Respironic s (okay for alternativ e brand) for nebulizer treatment Miscellaneo 2020-0 Yes [id number] J40: Un [facility] 11-22 [place] ity of Supply Kit 00:00: - [place] 00 # 1 [facility] Respironic s (okay for alternativ e brand) for nebulizer treatment Miscellaneo 2020-0 Yes [id number] J40: Un [facility] 11-22 [place] ity of Supply Kit 00:00: - [place] 00 # 1 [facility] Respironic s (okay for alternativ e brand) for nebulizer treatment Miscellaneo 2020-0 Yes [id number] J40: Un [facility] 11-22 [place] ity of Supply Kit 00:00: - [place] 00 # 1 [facility] Respironic s (okay for alternativ e brand) for nebulizer treatment Miscellaneo 2020-0 Yes [id number] J40: Un [facility] 11-22 [place] ity of Supply Kit 00:00: - [place] 00 # 1 [facility] Respironic s (okay for alternativ e brand) for nebulizer treatment Miscellaneo 2020-0 Yes [id number] J40: Un [facility] 11-22 [place] ity of Supply Kit 00:00: - [place] 00 # 1 [facility] Respironic s (okay for alternativ e brand) for nebulizer treatment Miscellaneo 2020-0 Yes [id number] J40: Un [facility] 11-22 [place] ity of Supply Kit 00:00: - [place] 00 # 1 [facility] Respironic s (okay for alternativ e brand) for nebulizer treatment Miscellaneo 2020-0 Yes [id number] J40: Un [facility] 11-22 [place] ity of Supply Kit 00:00: - [place] 00 # 1 [facility] Respironic s (okay for alternativ e brand) for nebulizer treatment Miscellaneo 2020-0 Yes [id number] J40: Un [facility] 11-22 [place] ity of Supply Kit 00:00: - [place] 00 # 1 [facility] Respironic s (okay for alternativ e brand) for nebulizer treatment Miscellaneo 2020-0 Yes [id number] J40: Un [facility] 11-22 [place] ity of Supply Kit [...] PADS 6-14 ity of PadM 00:00: [place] [facility] ALCOHOL 2018-0 Yes Univers PREP PADS 6-14 ity of PadM 00:00: [place] [facility] ALCOHOL 2018-0 Yes Univers PREP PADS 6-14 ity of PadM 00:00: [place] [facility] ALCOHOL 2018-0 Yes Univers PREP PADS 6-14 ity of PadM 00:00: [place] [facility] ALCOHOL 2018-0 Yes Univers PREP PADS 6-14 ity of PadM 00:00: [place] [facility] ALCOHOL 2018-0 Yes Univers PREP PADS 6-14 ity of PadM 00:00: [place] [facility] ALCOHOL 2018-0 Yes Univers PREP PADS 6-14 ity of PadM 00:00: [place] [facility] ALCOHOL 2018-0 Yes Univers PREP PADS 6-14 ity of PadM 00:00: [place] [facility] ALCOHOL 2018-0 Yes Univers PREP PADS 6-14 ity of PadM 00:00: [place] [facility] ALCOHOL 2018-0 Yes Univers PREP PADS 6-14 ity of PadM 00:00: [place] [facility] ALCOHOL 2018-0 Yes Univers PREP PADS 6-14 ity of PadM 00:00: [place] [facility] ALCOHOL 2018-0 Yes Univers PREP PADS 6-14 ity of PadM 00:00: [place] [facility] ALCOHOL 2018-0 Yes Univers PREP PADS 6-14 ity of PadM 00:00: [place] [facility] ALCOHOL 2018-0 Yes Univers PREP PADS 6-14 ity of PadM 00:00: [place] [facility] ALCOHOL 2018-0 Yes Univers PREP PADS 6-14 ity of PadM 00:00: [place] [facility] ALCOHOL 2018-0 Yes Univers PREP PADS 6-14 ity of PadM 00:00: [place] [facility] ALCOHOL 2018-0 Yes Univers PREP PADS 6-14 ity of PadM 00:00: [place] [facility] ALCOHOL 2018-0 Yes Univers PREP PADS 6-14 ity of PadM 00:00: [place] [facility] ALCOHOL 2018-0 Yes Univers PREP PADS 6-14 ity of PadM 00:00: [place] [facility] ALCOHOL 2018-0 Yes Univers PREP PADS 6-14 ity of PadM 00:00: [place] [facility] ALCOHOL 2018-0 Yes Univers PREP PADS 6-14 ity of PadM 00:00: [place] [facility] ALCOHOL 2018-0 Yes Univers PREP PADS 6-14 ity of PadM 00:00: [place] [facility] ALCOHOL 2018-0 Yes Univers PREP PADS 6-14 ity of PadM 00:00: [place] [facility] ALCOHOL 2018-0 Yes Univers PREP PADS 6-14 ity of PadM 00:00: [place] [facility] ALCOHOL 2018-0 Yes Univers PREP PADS 6-14 ity of PadM 00:00: [place] [facility] ALCOHOL 2018-0 Yes Univers PREP PADS 6-14 ity of PadM 00:00: [place] [facility] ALCOHOL 2018-0 Yes Univers PREP PADS 6-14 ity of PadM 00:00: [place] [facility] ALCOHOL 2018-0 Yes Univers PREP PADS 6-14 ity of PadM 00:00: [place] [facility] ALCOHOL 2018-0 Yes Univers PREP PADS 6-14 ity of PadM 00:00: [place] [facility] ALCOHOL 2018-0 Yes Univers PREP PADS 6-14 ity of PadM 00:00: [place] [facility] ALCOHOL 2018-0 Yes Univers PREP PADS 6-14 ity of PadM 00:00: [place] [facility] ALCOHOL 2018-0 Yes Univers PREP PADS 6-14 ity of PadM 00:00: [place] [facility] ALCOHOL 2018-0 Yes Univers PREP PADS 6-14 ity of PadM 00:00: [place] [facility] ALCOHOL 2018-0 Yes Univers PREP PADS 6-14 ity of PadM 00:00: [place] [facility] ALCOHOL 2018-0 Yes Univers PREP PADS 6-14 ity of PadM 00:00: [place] [facility] ALCOHOL 2018-0 Yes Univers PREP PADS 6-14 ity of PadM 00:00: [place] [facility] ALCOHOL 2018-0 Yes Univers PREP PADS 6-14 ity of PadM 00:00: [place] [facility] ALCOHOL 2018-0 Yes Univers PREP PADS 6-14 ity of PadM 00:00: [place] [facility] ALCOHOL 2018-0 Yes Univers PREP PADS 6-14 ity of PadM 00:00: [place] [facility] ALCOHOL 2018-0 Yes Univers PREP PADS 6-14 ity of PadM 00:00: [place] [facility] ALCOHOL 2018-0 Yes Univers PREP PADS 6-14 ity of PadM 00:00: [place] [facility] ALCOHOL 2018-0 Yes Univers PREP PADS 6-14 ity of PadM 00:00: [place] [facility] ALCOHOL 2018-0 Yes Univers PREP PADS 6-14 ity of PadM 00:00: [place] [facility] ALCOHOL 2018-0 Yes Univers PREP PADS 6-14 ity of PadM 00:00: [place] [facility] ALCOHOL 2018-0 Yes Univers PREP PADS 6-14 ity of PadM 00:00: [place] [facility] ALCOHOL 2018-0 Yes Univers PREP PADS 6-14 ity of PadM 00:00: [place] [facility] ALCOHOL 2018-0 Yes Univers PREP PADS 6-14 ity of PadM 00:00: [place] [facility] ALCOHOL 2018-0 Yes Univers PREP PADS 6-14 ity of PadM 00:00: [place] [facility] ALCOHOL 2018-0 Yes Univers PREP PADS 6-14 ity of PadM 00:00: [place] [facility] ALCOHOL 2018-0 Yes Univers PREP PADS 6-14 ity of PadM 00:00: [place] [facility] ALCOHOL 2018-0 Yes Univers PREP PADS 6-14 ity of PadM 00:00: [place] [facility] ALCOHOL 2018-0 Yes Univers PREP PADS 6-14 ity of PadM 00:00: [place] [facility] ALCOHOL 2018-0 Yes Univers PREP PADS 6-14 ity of PadM 00:00: [place] [facility] ALCOHOL 2018-0 Yes Univers PREP PADS 6-14 ity of PadM 00:00: [place] [facility] ALCOHOL 2018-0 Yes Univers PREP PADS 6-14 ity of PadM 00:00: [place] [facility] ALCOHOL 2018-0 Yes Univers PREP PADS 6-14 ity of PadM 00:00: [place] [facility] ALCOHOL 2018-0 Yes Univers PREP PADS 6-14 ity of PadM 00:00: [place] [facility] ALCOHOL 2018-0 Yes Univers PREP PADS 6-14 ity of PadM 00:00: [place] [facility] ALCOHOL 2018-0 Yes Univers PREP PADS 6-14 ity of PadM 00:00: [place] [facility] ALCOHOL 2018-0 Yes Univers PREP PADS 6-14 ity of PadM 00:00: [place] [facility] ALCOHOL 2018-0 Yes Univers PREP PADS 6-14 ity of PadM 00:00: [place] [facility] ALCOHOL 2018-0 Yes Univers PREP PADS 6-14 ity of PadM 00:00: [place] [facility] ALCOHOL 2018-0 Yes Univers PREP [...] of PadM 00:00: [place] [facility] loxapine 0 Yes Univers (LOXITANE) [...] Immunizations Ordered Filled Immunization Date Status Comments Sourc e Immunization Name Name Influenza Virus 2022-04-03 Completed Universit y of Vaccine Recomb Quad 00:00:00 [facility] IM, Preserv and ABX Branc h Free [...] VACCINE Branch SARS-COV-2 COVID-19 2020-08-09 Completed Unive [facility] of MODERNA 12+ YRS 00:00:00 [place] [facility] [...] y of Vaccine Quad .5 mL 00:00:00 [place] [facility] IM 6+ MO Branch Pneumococcal 2020-06-15 Completed University o f Polysaccharide, 00:00:00 [place] [facility] ical PPSV23 (PNEUMOVAX) Branch Influenza Virus 2020-06-15 Completed Universit y of Vaccine Quad .5 mL 00:00:00 [place] [facility] IM 6+ MO Branch Pneumococcal 2020-06-15 Completed University o f Polysaccharide, 00:00:00 [place] [facility] PPSV23 (PNEUMOVAX) Branch Influenza Virus 2020-06-15 Completed Universit y of Vaccine Quad .5 mL 00:00:00 [place] [facility] IM 6+ MO Branch Pneumococcal 2020-06-15 [...] y of Vaccine Quad .5 mL 00:00:00 [place] [facility] IM 6+ MO Branch Pneumococcal 2020-06-15 Completed University o f Polysaccharide, 00:00:00 [place] [facility] PPSV23 (PNEUMOVAX) Branch Influenza Virus 2020-06-15 Completed Universit y of Vaccine Quad .5 mL 00:00:00 [place] [facility] IM 6+ MO Branch Pneumococcal 2020-06-15 Completed University o f Polysaccharide, 00:00:00 [place] [facility] PPSV23 (PNEUMOVAX) Branch Influenza Virus 2020-06-15 Completed Universit y of Vaccine Quad .5 mL 00:00:00 [place] [facility] IM 6+ MO Branch Pneumococcal 2020-06-15 Completed University o f Polysaccharide, 00:00:00 [place] [facility] PPSV23 (PNEUMOVAX) Branch Influenza Virus 2020-06-15 Completed Universit y of Vaccine Quad .5 mL 00:00:00 [place] [facility] IM 6+ MO Branch Pneumococcal 2020-06-15 [...] 2020-06-15 Completed University o f Polysaccharide, 00:00:00 [place] [facility] PPSV23 (PNEUMOVAX) Branch Influenza Virus 2020-06-15 Completed Universit y of Vaccine Quad .5 mL 00:00:00 [place] [facility] IM 6+ MO Branch Pneumococcal 2020-06-15 Completed University o f Polysaccharide, 00:00:00 [place] [facility] PPSV23 (PNEUMOVAX) Branch Influenza Virus 2020-06-15 Completed Universit y of Vaccine Quad .5 mL 00:00:00 [place] [facility] IM 6+ MO Branch Pneumococcal 2020-06-15 Completed University o f Polysaccharide, 00:00:00 [place] [facility] PPSV23 (PNEUMOVAX) Branch Influenza Virus 2020-06-15 Completed Universit y of Vaccine Quad .5 mL 00:00:00 [place] [facility] IM 6+ MO Branch Pneumococcal 2020-06-15 Completed University o f Polysaccharide, 00:00:00 [place] [facility] PPSV23 (PNEUMOVAX) Branch Influenza Virus 2020-06-15 Completed Universit y of Vaccine Quad .5 mL 00:00:00 [place] [facility] IM 6+ MO Branch Pneumococcal 2020-06-15 Completed University o f Polysaccharide, 00:00:00 [place] [facility] PPSV23 (PNEUMOVAX) Branch Influenza Virus 2020-06-15 Completed Universit y of Vaccine Quad .5 mL 00:00:00 [place] [facility] IM 6+ MO Branch Pneumococcal 2020-06-15 Completed University o f Polysaccharide, 00:00:00 [place] [facility] ical PPSV23 (PNEUMOVAX) Branch Influenza Virus 2020-06-15 Completed Universit y of Vaccine Quad .5 mL 00:00:00 [place] [facility] IM 6+ MO Branch Pneumococcal 2020-06-15 Completed University o f Polysaccharide, 00:00:00 [place] [facility] PPSV23 (PNEUMOVAX) Branch Influenza Virus 2020-06-15 Completed Universit y of Vaccine Quad .5 mL 00:00:00 [place] [facility] IM 6+ MO Branch Pneumococcal 2020-06-15 Completed University o f Polysaccharide, 00:00:00 [place] [facility] PPSV23 (PNEUMOVAX) Branch Influenza Virus 2020-06-15 Completed Universit y of Vaccine Quad .5 mL 00:00:00 [place] [facility] IM 6+ MO Branch Pneumococcal 2020-06-15 Completed University o f Polysaccharide, 00:00:00 [place] [facility] PPSV23 (PNEUMOVAX) Branch Influenza Virus 2020-06-15 Completed Universit y of Vaccine Quad .5 mL 00:00:00 [place] [facility] IM 6+ MO Branch Pneumococcal 2020-06-15 Completed University o f Polysaccharide, 00:00:00 [place] [facility] PPSV23 (PNEUMOVAX) Branch Influenza Virus 2020-06-15 Completed Universit y of Vaccine Quad .5 mL 00:00:00 [place] [facility] IM 6+ MO Branch Pneumococcal 2020-06-15 Completed University o f Polysaccharide, 00:00:00 [place] [facility] PPSV23 (PNEUMOVAX) Branch Influenza Virus 2020-06-15 Completed Universit y of Vaccine Quad .5 mL 00:00:00 [place] [facility] IM 6+ MO Branch Pneumococcal 2020-06-15 Completed University o f Polysaccharide, 00:00:00 [place] [facility] PPSV23 (PNEUMOVAX) Branch Influenza Virus 2020-06-15 Completed Universit y of Vaccine Quad .5 mL 00:00:00 [place] [facility] IM 6+ MO Branch Pneumococcal 2020-06-15 Completed University o f Polysaccharide, 00:00:00 [place] [facility] PPSV23 (PNEUMOVAX) Branch Influenza Virus 2020-06-15 Completed Universit y of Vaccine Quad .5 mL 00:00:00 [place] [facility] 6+ MO Branch Pneumococcal 2020-06-15 Completed University o f Polysaccharide, 00:00:00 [place] [facility] PPSV23 (PNEUMOVAX) Branch Influenza Virus 2020-06-15 Completed Universit y of Vaccine Quad .5 mL 00:00:00 [place] [facility] IM 6+ MO Branch Pneumococcal 2020-06-15 [...] y of Vaccine Quad .5 mL 00:00:00 [place] [facility] IM 6+ MO Branch Pneumococcal 2020-06-15 Completed University o f Polysaccharide, 00:00:00 [place] [facility] PPSV23 (PNEUMOVAX) Branch Influenza Virus 2020-06-15 Completed Universit y of Vaccine Quad .5 mL 00:00:00 [place] [facility] IM 6+ MO Branch Pneumococcal 2020-06-15 Completed University o f Polysaccharide, 00:00:00 [place] [facility] PPSV23 (PNEUMOVAX) Branch Influenza Virus 2020-06-15 Completed Universit y of Vaccine Quad .5 mL 00:00:00 [place] [facility] IM 6+ MO Branch Pneumococcal 2020-06-15 Completed University o f Polysaccharide, 00:00:00 [place] [facility] PPSV23 (PNEUMOVAX) Branch Influenza Virus 2020-06-15 Completed Universit y of Vaccine Quad .5 mL 00:00:00 [place] [facility] IM 6+ MO Branch Pneumococcal 2020-06-15 Completed University o f Polysaccharide, 00:00:00 [place] [facility] PPSV23 (PNEUMOVAX) Branch Influenza Virus 2020-06-15 Completed Universit y of Vaccine Quad .5 mL 00:00:00 [place] [facility] IM 6+ MO Branch Pneumococcal 2020-06-15 Completed University o f Polysaccharide, 00:00:00 [place] [facility] PPSV23 (PNEUMOVAX) Branch Influenza Virus 2020-06-15 Completed Universit y of Vaccine Quad .5 mL 00:00:00 [place] [facility] IM 6+ MO Branch Pneumococcal 2020-06-15 Completed University o f Polysaccharide, 00:00:00 [place] [facility] PPSV23 (PNEUMOVAX) Branch Influenza Virus 2020-06-15 Completed Universit y of Vaccine Quad .5 mL 00:00:00 [place] [facility] IM 6+ MO Branch Pneumococcal 2020-06-15 [...] y of Vaccine Quad .5 mL 00:00:00 [place] [facility] IM 6+ MO Branch Pneumococcal 2020-06-15 Completed University o f Polysaccharide, 00:00:00 [facility] ical PPSV23 (PNEUMOVAX) Branch Influenza Virus 2020-06-15 Completed Universit y of Vaccine Quad .5 mL 00:00:00 [facility] IM 6+ MO Branch Vital Signs Vital Name Observation Time Observation Value Comments Source Systolic blood 2022-08-07 17:58:00 114 mm[Hg] [facility] Diastolic blood 2022-08-07 17:58:00 59 mm[Hg] [facility] Heart rate 2022-08-07 17:58:00 92 /min [facility] Body height 2022-08-07 17:58:00 165.1 cm Universi ty [facility] Body weight 2022-08-07 17:58:00 115.214 kg [facility] [facility] BMI 2022-08-07 17:58:00 42.27 kg/m2 Universi ty [facility] Oxygen saturation in 2022-08-07 17:58:00 91 /min University of Arterial blood by [place] [facility] Pulse oximetry Branch Systolic blood 2022-07-19 22:01:00 145 mm[Hg] Univer sity of [facility] Diastolic blood 2022-07-19 22:01:00 73 mm[Hg] Unive rsity of [facility] Heart rate 2022-07-19 22:01:00 91 /min Universi ty [facility] Respiratory rate 2022-07-19 22:01:00 15 /min [facility] Oxygen saturation in 2022-07-19 22:01:00 92 /min University of Arterial blood by [place] [facility] Pulse oximetry Branch Body temperature 2022-07-19 19:11:00 36.72 Jeanne Univ ersity of [facility] Body weight 2022-07-19 19:11:00 111.585 kg Universi ty [facility] BMI 2022-07-19 19:11:00 40.94 kg/m2 Universi ty [facility] Systolic blood 2022-07-16 16:47:00 139 mm[Hg] Univer sity of [facility] Diastolic blood 2022-07-16 16:47:00 78 mm[Hg] Unive rsity of [facility] Heart rate 2022-07-16 16:45:00 83 /min [facility]i ty [facility] Respiratory rate 2022-07-16 16:45:00 22 /min Univ ersity [facility] Body height 2022-07-16 16:45:00 165.1 cm [facility] Body weight 2022-07-16 16:45:00 111.585 kg [facility] BMI 2022-07-16 16:45:00 40.94 kg/m2 Universi ty [facility] [place] [facility] Oxygen saturation in 2022-07-16 16:45:00 93 /min University of Arterial blood by [facility]ley Pulse oximetry Branch Systolic blood 2022-06-10 20:16:00 138 mm[Hg] Univer sity of [facility] Diastolic blood 2022-06-10 20:16:00 72 mm[Hg] Unive rsity of [facility] Heart rate 2022-06-10 20:16:00 84 /min Universi ty [facility] Body weight 2022-06-10 20:16:00 111.993 kg [facility]i ty [facility] BMI 2022-06-10 20:16:00 41.09 kg/m2 [facility] ty [facility] Oxygen saturation in 2022-06-10 20:16:00 95 /min University of [facility] by [facility] Pulse oximetry Branch Systolic blood 2022-06-04 16:31:00 138 mm[Hg] Univer sity of [facility] Diastolic blood 2022-06-04 16:31:00 80 mm[Hg] Unive rsity of [facility] Heart rate 2022-06-04 16:00:00 95 /min Universi ty [facility] Body temperature 2022-06-04 16:00:00 36.94 Jeanne Univ ersity of [place] [facility] Body height 2022-06-04 16:00:00 165.1 cm [facility] ty [facility] Body weight 2022-06-04 16:00:00 111.131 kg [facility] BMI 2022-06-04 16:00:00 40.77 kg/m2 Universi ty [facility] [place] [facility] Oxygen saturation in 2022-06-04 16:00:00 95 /min University of Arterial blood by [place] [facility] Pulse oximetry Branch Systolic blood 2022-05-29 18:11:00 161 mm[Hg] Univer sity of [facility] Diastolic blood 2022-05-29 18:11:00 78 mm[Hg] Unive rsity of [facility] Heart rate 2022-05-29 18:11:00 89 /min Universi ty [facility] [place] [facility] Respiratory rate 2022-05-29 18:11:00 20 /min Univ ersity of [place] [facility] Oxygen saturation in 2022-05-29 18:11:00 98 /min University of Arterial blood by [place] [facility] Pulse oximetry Branch Body temperature 2022-05-29 15:16:00 37.06 Jeanne Univ ersity of [place] [facility] Body height 2022-05-29 15:16:00 165.1 cm Universi ty [facility] [place] [facility] Body weight 2022-05-29 15:16:00 113.399 kg Universi ty [facility] [place] [facility] BMI 2022-05-29 15:16:00 41.60 kg/m2 Universi ty [facility] [place] [facility] Systolic blood 2022-05-23 21:06:00 156 mm[Hg] Univer sity of [facility] Diastolic blood 2022-05-23 21:06:00 78 mm[Hg] Unive rsity of [facility] Heart rate 2022-05-23 21:06:00 87 /min Universi ty [facility] [place] [facility] Body weight 2022-05-23 21:06:00 113.036 kg Universi ty [facility] [place] [facility] BMI 2022-05-23 21:06:00 41.47 kg/m2 Universi ty [facility] [place] [facility] Oxygen saturation in 2022-05-23 21:06:00 97 /min University of Arterial blood by [place] [facility] Pulse oximetry Branch Systolic blood 2022-05-08 17:02:00 127 mm[Hg] Univer sity of [facility] [place] [facility] Diastolic blood 2022-05-08 17:02:00 77 mm[Hg] Unive rsity of [facility] [place] [facility] Heart rate 2022-05-08 16:56:00 87 /min Universi ty [facility] [place] [facility] Body weight 2022-05-08 16:56:00 111.131 kg [facility] BMI 2022-05-08 16:56:00 40.77 kg/m2 [facility] Oxygen saturation in 2022-05-08 16:56:00 96 /min [facility] blood by [facility] Pulse oximetry Branch Procedures Procedure Date / Time Performed Performing Clinician Bozena e EXTERNAL PROVIDER 2022-08-11 06:01:00 Doctor Unassigned, No Univ ersity of [place] RECORDS [facility] Medical Branch COMP. METABOLIC PANEL 2022-07-19 19:57:00 Jesus Spain [facility] ([id number]) Medical Branch CBC WITH DIFF 2022-07-19 19:57:00 Grabiel Jesus [facility] LACTIC ACID WHOLE 2022-07-19 19:56:00 Jesus Spain [facility] BLOOD [facility] Branch XR HEEL 2+ VW LEFT 2022-07-19 19:48:20 Jesus Spain [facility] CONSENT/REFUSAL FOR 2022-07-19 19:00:48 Doctor Unassálvaro, No Un iversity of [place] DIAGNOSIS AND [facility] Medical Branch TREATMENT SLEEP STUDY DATA 2022-06-19 06:01:00 Doctor Unassálvaro, No Unive rsity [facility] REPORT [facility] Medical Branch LIPASE 2022-05-29 16:08:00 [facility] TROPONIN I 2022-05-29 16:08:00 [facility] COMP. METABOLIC PANEL 2022-05-29 16:08:00 [facility] ([id number]) [facility] CBC WITH DIFF 2022-05-29 16:08:00 [facility] URINALYSIS 2022-05-29 16:02:00 [facility] CONSENT/REFUSAL FOR 2022-05-29 15:11:18 Doctor Unassálvaro, No Un i[facility]ity of [place] DIAGNOSIS AND [facility] Medical Branch TREATMENT POCT HEMOGLOBIN A1C 2022-05-23 21:18:00 Giovany Antoine [facility] TEST Medical Branch PHYSICIAN ORDERS 2022-05-08 05:01:00 Doctor Unassigned, No Unive rsity [facility] Medical [place] Encounters Start End Encounter Admission Attending Care Care Encounter Source Date/Time Date/Time Type Type Clinicians Facility Department ID 2021-06-01 Emergency [facility] [id number] Univers 23:56:14 min [facility] 2021-06-01 Outpatient JANAE [facility] [id number] Univers 12:13:32 BISI copeland [facility] 2022-11-06 2022-11-06 Outpatient Hany WITT [facility] [id number] Univers 12:30:00 12:30:00 JEFFERSON joaniraida [facility] 2022-08-11 2022-08-11 Orders Doctor BISI 1.2.840.114 [id number] Univers 00:00:00 00:00:00 Only Unassigned, BRYAN 350.1.13.10 ity of [place] [facility] 4.2.7.2.686 Sarkis as [id number] [address] 2022-08-08 2022-08-08 Telephone [facility] 1.2.449.434 [id number] Univers 00:00:00 00:00:00 [facility] 350.1.13.10 it y of [place] 4.2.7.2.686 Sarkis as MAURICIO?BLEA [id number] [address] OFFICE [facility] 2022-08-08 2022-08-08 Telephone [facility] 1.2.155.348 [id number] Univers 00:00:00 00:00:00 [facility] 350.1.13.10 it y of [place] 4.2.7.2.686 Sarkis as MAURICIO?BLEA [id number] [address] OFFICE [facility] 2022-08-07 2022-08-07 Office [facility] 1.2.840.114 [id number] Univers 12:00:00 12:15:00 Visit [facility] 350.1.13.10 it y of [place] 4.2.7.2.686 Sarkis as MAURICIO?BLEA [phone] [address] OFFICE [facility] 2022-08-07 2022-08-07 Outpatient Hany WITT [facility] [id number] Univers 12:00:00 12:00:00 JEFFEROSN copeland [facility] 2022-08-03 2022-08-03 Nurse BISI Weems 1.2.840.114 [id number] Univers 00:00:00 00:00:00 Triage Oleg TORRES 350.1.13.10 it y of [facility] 4.2.7.2.686 Sarkis as [id number] [facility] 019 [place] 2022-07-29 2022-07-29 Refprabhjot Witt [facility] 1.2.840.114 [id number] Univers 00:00:00 00:00:00 [facility] 350.1.13.10 it y of [place] 4.2.7.2.686 Sarkis as MAURICIO?BLEA [phone] [facility] 044 [facility] OFFICE [facility] 2022-07-22 2022-07-22 Viktoriya Gamino [facility] 1.2.840.114 [id number] Univers 00:00:00 00:00:00 Marylou [facility] 350.1.13.10 it y of [place] 4.2.7.2.686 Sarkis as MAURICIO?BLEA [phone] [facility] 220 [facility] OFFICE [facility] 2022-07-21 2022-07-21 Telephone [place] [facility] 1.2.819.278 [id number] Univers 00:00:00 00:00:00 Claudia Lesli [place] 350.1.13.10 i ty of [place].2.7.2.[address] [address] [facility] [id number] [facility] 059 [facility] 2022-07-19 2022-07-19 Emergency X [facility] ERT [id number] Univers 13:12:00 16:24:00 JESUS joaniraida [facility] 2022-07-19 2022-07-19 Emergency [facility] 1.2.825.606 [id number] Univers 13:12:00 16:24:00 Jesusjalyn [place] 350.1.13.10 i ty of [place].2.7.2.[place] [id number] [facility] 084 [place] 2022-07-17 2022-07-17 Telephone Eduar [facility] 1.2.945.920 [id number] Univers 00:00:00 00:00:00 [facility] 350.1.13.10 it y of [place] 4.2.7.2.686 Sarkis as MAURICIO?BLEA [id number] [address] OFFICE [facility] 2022-07-16 2022-07-16 Office Galdino [facility] 1.2.191.896 [id number] Univers 10:30:00 11:00:00 Visit [facility] 350.1.13.10 ity of [facility] 4.2.7.2.[place] [id number] [facility] NAL 085 [facility] 2022-07-16 2022-07-16 Outpatient R RACHELL CHENG [facility] [id number] Univers 10:30:00 10:30:00 RACHELL CHENG [facility] 2022-07-15 2022-07-15 Telephone [facility] 1.2.368.036 [id number] Univers 00:00:00 00:00:00 [facility] 350.1.13.10 it y [facility] 4.2.7.2.686 Sarkis as MAURICIO?BLEA [id number] [address] OFFICE [facility] 2022-07-14 2022-07-14 Telephone [facility] 1.2.893.904 [id number] Univers 00:00:00 00:00:00 Claudia L [place] 350.1.13.10 i ty of [place].2.7.2.[place] [id number] [facility] 059 [facility] 2022-07-07 2022-07-07 Telephone [facility] 1.2.981.146 [id number] Univers 00:00:00 00:00:00 Claudia L [place] 350.1.13.10 i ty of [place] 4.2.7.2.[place] [id number] [place] [id number] [facility] 2022-07-03 2022-07-03 Outpatient R BEN [facility] [id number] Univers 11:30:00 11:30:00 ROSETTE copeland [facility] 2022-07-02 2022-07-02 Refprabhjot [facility] 1.2.840.114 [id number] Univers 00:00:00 00:00:00 Ejfferson HEALTH 350.1.13.10 it y of [place] 4.2.7.2.686 Sarkis as MAURICIO?BLEA [id number] [address] OFFICE [facility] 2022-06-30 2022-06-30 Refprabhjot [facility] 1.2.840.114 [id number] Univers 00:00:00 00:00:00 [place] [facility]ALTH 350.1.13.10 it y of [place] 4.2.7.2.686 Sarkis as MAURICIO?BLEA [id number] [address] 2022-06-30 2022-06-30 Telephone [facility] 1.2.169.117 [id number] Univers 00:00:00 00:00:00 Claudia BR[place] 350.1.13.10 i ty of [place] 4.2.7.2.[address] [address] [facility] [id number] [place] 586749 [facility] 2022-06-25 2022-06-25 Telephone [facility] 1.2.036.240 [id number] Univers 00:00:00 00:00:00 Rosette A HEALTH 350.1.13.10 i ty of [place] 4.2.7.2.686 Sarkis as MAURICIO?BLEA [id number] [address] 2022-06-19 2022-06-19 Chinchilla Machine Operator Brenda aTveras Sleep [facility] 1.2 .840.114 [id number] Univers 13:00:00 13:15:00 Visit Rachell Cheng 350.1.13. 10 ity of [facility] 4.2.7.2.686 [place] [id number] [address] 2022-06-19 2022-06-19 Outpatient R RACHELL CHENG [facility] [id number] Univers 13:00:00 13:00:00 RACHELL CHENG ity [facility] 2022-06-19 2022-06-19 Orders Doctor BISI 1.2.840.114 [id number] Univers 00:00:00 00:00:00 Only Unassigned, BRYAN 350.1.13.10 ity of [place] [facility] 4.2.7.2.686 Sarkis as [id number] [address] 2022-06-19 2022-06-19 Refill [facility] 1.2.840.114 [id number] Univers 00:00:00 00:00:00 [facility] 350.1.13.10 it y of [place] 4.2.7.2.686 Sarkis as MAURICIO?BLEA [id number] [address] 2022-06-18 2022-06-18 Outpatient R RACHELL CHENG [facility] [id number] Univers 13:00:00 13:00:00 GALDINO [facility] 2022-06-17 2022-06-17 Telephone Eduar [facility] 1.2.727.853 [id number] [facility] 00:00:00 00:00:00 [facility] 350.1.13.10 it y of [place] 4.2.7.2.686 Sarkis as MAURICIO?BLEA [phone] [address] 2022-06-16 2022-06-16 Outpatient SFA [facility] [id number] [place] 11:44:53 11:44:53 1114 F Matt 2022-06-16 2022-06-16 Telephone [facility] 1.2.772.140 [id number] [facility] 00:00:00 00:00:00 Claudia BRADLEY 350.1.13.10 i ty of [place] 4.2.7.2.686 [place] [id number] In shiraguilherme [facility] 059 [facility] 2022-06-13 2022-06-13 Chinchilla Machine Operator 2, Adc Lab [facility] 1.2.840.114 [id number] Univers 11:15:00 11:30:00 Visit Claudia Porter 350.1.13.10 ity of [place] 4.2.7.2.686 [place] [id number] In dical NAL 353 [facility] 2022-06-13 2022-06-13 Outpatient R CHARLOTTE [facility] [id number] Univers 11:15:00 11:15:00 CLAUDIA itiraida [facility] 2022-06-12 2022-06-12 Telephone [facility] 1.2.259.185 [id number] Univers 00:00:00 00:00:00 Claudia Ballesteros MIRNA 350.1.13.10 i ty of [place] 4.2.7.2.[place] [phone] In dical NAL 059 [facility] 2022-06-12 2022-06-12 Telephone [facility] 1.2.806.043 [id number] Univers 00:00:00 00:00:00 [facility] 350.1.13.10 it y of [place] 4.2.7.2.686 Sarkis as MAURICIO?BLEA [id number] In dical [address] OFFICE [facility] 2022-06-11 2022-06-11 Outpatient R [facility] [id number] Univers 10:08:55 23:59:00 JEFFERSON min [facility] 2022-06-11 2022-06-11 [facility] 1.2.840.114 [id number] Univers 10:08:55 23:59:00 Encounter Jefferson [place] 350.1.13.10 ity of [place] 4.2.7.2.686 [place] C[place] [id number] [address] 2022-06-10 2022-06-10 Outpatient R [facility] [id number] Univers 14:20:00 16:26:04 CLAUDIA itiraida [facility] 2022-06-10 2022-06-10 Office [facility] 1.2.840.114 [id number] Univers 14:20:00 16:26:04 Visit Claudia Lesli [place] 350.1.13.10 i ty of [facility] 4.2.7.2.[place] [id number] In dical NAL 059 [facility] 2022-06-05 2022-06-05 Viktoriya [facility] 1.2.840.114 [id number] Univers 00:00:00 00:00:00 Marylou HEALTH 350.1.13.10 it y of [place] 4.2.7.2.686 Sarkis as MAURICIO?BLEA [id number] In ashley SIMPSON 220 [facility] OFFICE [facility] 2022-06-04 2022-06-04 Outpatient R BEN [facility] [id number] Univers 10:30:00 11:55:43 ROSETTE ity [facility] 2022-06-04 2022-06-04 Office [facility] 1.2.840.114 [id number] Univers 10:30:00 11:55:43 Visit Rosette A HEALTH 350.1.13.10 i ty of [facility] 4.2.7.2.686 Sarkis as MAURICIO?BLEA [id number] [facility] 044 [facility] 2022-06-04 2022-06-04 Refprabhjot [facility] 1.2.840.114 [id number] Univers 00:00:00 00:00:00 [facility] 350.1.13.10 it y of [place] 4.2.7.2.686 Sarkis as MAURICIO?BLEA [id number] [facility] 044 [facility] 2022-05-29 2022-05-[address] [facility] ERT [id number] Univers 10:17:00 14:59:00 DAYLIN copeland [facility] 2022-05-29 2022-05-29 Emergency [facility] 1.2.519.106 [id number] Univers 10:17:00 14:59:00 Daylin Prabhakar [place] 350.1.13.10 ity of [place] 4.2.7.2.686 [place] [facility] [id number] [address] 2022-05-29 2022-05-29 Telephone [facility] 1.2.561.015 [id number] Univers 00:00:00 00:00:00 [place] [facility]ALTH 350.1.13.10 it y of [place] 4.2.7.2.686 Sarkis as MAURICIO?BLEA [id number] In ashley SIMPSON [address] [place] MEDICAL OFFICE [facility] 2022-05-29 2022-05-29 Refill [facility] 1.2.840.114 [id number] Univers 00:00:00 00:00:00 Jefferson [facility]ALTH 350.1.13.10 it y of [place] 4.2.7.2.686 Sarkis as MAURICIO?BLEA [id number] In ashley SIMPSON 044 [facility] OFFICE [facility] 2022-05-27 2022-05-27 Telephone [facility] 1.2.238.419 [id number] Univers 00:00:00 00:00:00 Jefferson [facility]ALTH 350.1.13.10 it y of [place] 4.2.7.2.686 Sarkis as MAURICIO?BLEA [id number] In ashley [facility] 044 [facility] OFFICE [facility] 2022-05-27 2022-05-27 Telephone Team [facility] BISI 1.2.840.114 [id number] Univers 00:00:00 00:00:00 Health BRYAN 350.1.13.10 it y of [facility] 4.2.7.2.686 [place] [id number] [address] 2022-05-23 2022-05-23 Outpatient R [facility] [id number] Univers 16:30:00 17:15:04 GIOVANY cpoeland [facility] 2022-05-23 2022-05-23 Office [facility] 1.2.079.220 [id number] Univers 16:30:00 17:15:04 Visit Giovany HEALTH 350.1.13.10 it y of [place] 4.2.7.2.686 Sarkis as MAURICIO?BLEA [id number] In ashley SIMPSON 220 [facility] OFFICE [facility] 2022-05-23 2022-05-23 Outpatient R [facility] [id number] Univers 16:30:00 16:30:00 GIOVANY joaniraida [facility] 2022-05-23 2022-05-23 Viktoriya [facility] 1.2.840.114 [id number] Univers 00:00:00 00:00:00 Marylou HEALTH 350.1.13.10 it y of [place] 4.2.7.2.686 Sarkis as MAURICIO?BLEA [id number] In ashley SIMPSON 220 [facility] OFFICE [facility] 2022-05-23 2022-05-23 Refprabhjot WittG[facility] 1.2.840.114 [id number] Univers 00:00:00 00:00:00 [facility] 350.1.13.10 it y of [place] 4.2.7.2.686 Sarkis as MAURICIO?BLEA [id number] In ashley SIMPSON 044 [facility] OFFICE [facility] 2022-05-20 2022-05-20 [facility] 1.2.840.114 [id number] Univers 00:00:00 00:00:00 [facility] 350.1.13.10 it y of [place] 4.2.7.2.686 Sarkis as MAURICIO?BLEA [id number] In ashley [address] 2022-05-08 2022-05-08 Outpatient R [facility] [id number] Univers 12:00:00 12:18:22 [facility] 2022-05-08 2022-05-08 Office [facility] 1.2.840.114 [id number] Univers 12:00:00 12:18:22 Visit [place] 01056.1.13.10 it y of [facility] 4.2.7.2.686 Sarkis as MAURICIO?BLEA [phone] In ashley [address]ST[address] 2022-05-08 2022-05-08 Outpatient R [facility] [id number] Univers 12:00:00 12:00:00 [facility] 2022-05-08 2022-05-08 Telephone [facility] 1.2.409.978 [id number] Univers 00:00:00 00:00:00 [facility] 350.1.13.10 it y of [place] 4.2.7.2.686 Sarkis as MAURICIO?BLEA [id number] [address] OFFICE [facility] 2022-05-08 2022-05-08 Orders Doctor MATHEWS 1.2.840.114 [id number] Univers 00:00:00 00:00:00 Only Unassigned, BRYAN 350.1.13.10 ity of [place] [facility] 4.2.7.2.686 Sarkis as [id number] [address] 2022-05-07 2022-05-07 Viktoriya [facility] 1.2.840.114 [id number] Univers 00:00:00 00:00:00 [facility] HEALTH 350.1.13.10 it y of [place] 4.2.7.2.686 Sarkis as MAURICIO?BLEA [id number] [address] MEDICAL OFFICE [facility] 2022-05-06 2022-05-06 Viktoriya [facility] 1.2.840.114 [id number] Univers 00:00:00 00:00:00 [place] HEALTH 350.1.13.10 it [facility] 4.2.7.2.686 Sarkis as MAURICIO?BLEA [id number] [address] OFFICE [facility] 2022-04-29 2022-04-29 Viktoriya [facility] 1.2.840.114 [id number] Univers 00:00:00 00:00:00 Marylou HEALTH 350.1.13.10 it y of [place] 4.2.7.2.686 Sarkis as MAURICIO?BLEA [id number] [facility] 220 [facility] OFFICE [facility] 2022-04-24 2022-04-24 Outpatient Hany WITT [facility] [id number] Univers 00:00:00 00:00:00 [place] ity of [facility] 2022-04-24 2022-04-24 [facility] 1.2.840.114 [id number] Univers 00:00:00 00:00:00 [place] [facility] 350.1.13.10 it y of [place] 4.2.7.2.686 Sarkis as MAURICIO?BLEA [phone] [address] MEDICAL OFFICE [facility] 2022-04-23 2022-04-23 [facility] 1.2.840.114 [id number] Univers 00:00:00 00:00:00 [place] [facility] 350.1.13.10 it y of [place] 4.2.7.2.686 Sarkis as MAURICIO?BLEA [id number] [address] OFFICE [facility] 2022-04-23 2022-04-23 [facility] 1.2.840.114 [id number] Univers 00:00:00 00:00:00 [place] [facility] 350.1.13.10 it y of [place] 4.2.7.2.686 Sarkis as MAURICIO?BLEA [phone] [address] OFFICE [facility] 2022-04-09 2022-04-09 [facility] 1.2.840.114 [id number] Univers 00:00:00 00:00:00 [place] [facility] 350.1.13.10 it y of [place] 4.2.7.2.686 Sarkis as MAURICIO?BLEA [phone] [address] 2022-04-08 2022-04-08 [facility] 1.2.694.580 [id number] Univers 00:00:00 00:00:00 [facility] 350.1.13.10 it y of [place] 4.2.7.2.686 Sarkis as MAURICIO?BLEA [id number] [address] 2022-03-31 2022-03-31 [facility] 1.2.840.114 [id number] Univers 00:00:00 00:00:00 [facility] 350.1.13.10 it y of [place] 4.2.7.2.686 Sarkis as MAURICIO?BLEA [phone] [address] OFFICE [facility] 2022-03-27 2022-03-27 Outpatient R [facility] [id number] Univers 13:20:00 13:20:00 JEFFERSON min [facility] 2022-03-26 2022-03-26 [facility] 1.2.840.114 [id number] Univers 00:00:00 00:00:00 [facility] 350.1.13.10 it y of [place] 4.2.7.2.686 Sarkis as MAURICIO?BLEA [phone] In shiraal CALVIN [address] MEDICAL OFFICE BUILDING 2022-03-11 2022-03-11 Refprabhjot [facility] 1.2.840.114 [id number] Univers 00:00:00 00:00:00 [facility] 350.1.13.10 it y of [place] 4.2.7.2.686 Sarkis as MAURICIO?BLEA [phone] In ashley SIMPSON [address] MEDICAL OFFICE [facility] 2022-03-06 2022-03-06 [facility] 1.2.711.528 [id number] Univers 00:00:00 00:00:00 [facility] 350.1.13.10 it y of [place] 4.2.7.2.686 Sarkis as MAURICIO?BLEA [phone] In ashley SIMPSON [address] MEDICAL OFFICE [facility] 2022-03-01 2022-03-01 [facility] 1.2.840.114 [id number] Univers 00:00:00 00:00:00 [facility] 350.1.13.10 it y of [place] 4.2.7.2.686 Sarkis as MAURICIO?BLEA [phone] In ashley SIMPSON [address] MEDICAL OFFICE [facility] 2022-02-27 2022-02-27 [facility] 1.2.840.114 [id number] Univers 00:00:00 00:00:00 Marylou HEALTH 350.1.13.10 it y of [place] 4.2.7.2.686 Sarkis as MAURICIO?BLEA [phone] In dicguilherme SIMPSON [address] MEDICAL OFFICE [facility] 2022-02-26 2022-02-26 Telephone [facility] 1.2.840.114 [id number] Univers 00:00:00 00:00:00 [facility] HEALTH 350.1.13.10 it y of [place] 4.2.7.2.686 Sarkis as MAURICIO?BLEA [phone] In ashley CASTLE [address] MEDICAL OFFICE [facility] 2022-02-24 2022-02-24 Telephone [facility] 1.2.627.751 [id number] Univers 00:00:00 00:00:00 [facility] 350.1.13.10 it y of [place] 4.2.7.2.686 Sarkis as MAURICIO?BLEA [phone] [address] MEDICAL OFFICE BUILDING 2022-02-24 2022-02-24 Refill [facility] 1.2.840.114 [id number] Univers 00:00:00 00:00:00 [facility] 350.1.13.10 it y of [place] 4.2.7.2.686 Sarkis as MAURICIO?BLEA [phone] [address] MEDICAL OFFICE [facility] 2022-02-21 2022-02-21 Outpatient R GARY [facility] [id number] Univers 10:45:00 10:45:00 ARMINDA [facility] 2022-02-11 2022-02-11 Telephone [facility] 1.2.478.402 [id number] Univers 00:00:00 00:00:00 [place] 0[address].1.13.10 it y of [place] 4.2.7.2.686 Sarkis as MAURICIO?BLEA [phone] [address] OFFICE [facility] 2022-02-10 2022-02-10 Telephone [facility] 1.2.681.393 [id number] Univers 00:00:00 00:00:00 [facility] 350.1.13.10 it y of [place] 4.2.7.2.686 Sarkis as MAURICIO?BLEA [phone] [address] MEDICAL OFFICE [facility] 2022-02-05 2022-02-05 Outpatient R [facility] [id number] Univers 09:45:00 10:02:08 [facility] 2022-02-05 2022-02-05 Office [facility] 1.2.840.114 [id number] Univers 09:45:00 10:02:08 Visit [facility] 350.1.13.10 it y of [place] 4.2.7.2.686 Sarkis as MAURICIO?BLEA [phone] [address] MEDICAL OFFICE [facility] 2022-02-052022-02-05 Refill [facility] 1.2.840.114 [id number] Univers 00:00:00 00:00:00 [facility] 350.1.13.10 it y of [place] 4.2.7.2.686 Sarkis as MAURICIO?BLEA [phone] In ashley SIMPSON [address] MEDICAL OFFICE [facility] 2022-02-05 2022-02-05 [facility] 1.2.840.114 [id number] Univers 00:00:00 00:00:00 [facility] 350.1.13.10 it y of [place] 4.2.7.2.686 Sarkis as MAURICIO?BLEA [phone] In ashley SIMPSON 044 [facility] OFFICE [facility] 2022-02-05 2022-02-05 Telephone [facility] 1.2.535.294 [id number] Univers 00:00:00 00:00:00 [facility] HEALTH 350.1.13.10 it y of [place] 4.2.7.2.686 Sarkis as MAURICIO?BLEA [phone] In ashley SIMPSON [address] MEDICAL OFFICE [facility] 2022-02-05 2022-02-05 Orders Doctor BISI 1.2.840.114 [id number] Univers 00:00:00 00:00:00 Only Unassigned, BRYAN 350.1.13.10 ity of [place] [facility] 4.2.7.2.686 Sarkis as [phone] [address] 2022-01-31 2022-01-31 Refill [facility] 1.2.441.398 [id number] Univers 00:00:00 00:00:00 [facility] HEALTH 350.1.13.10 it y of [place] 4.2.7.2.686 Sarkis as MAURICIO?BLEA [phone] In ashley SIMPSON [address] MEDICAL OFFICE [facility] 2022-01-27 2022-01-27 Refprabhjot MorrowGALLUP [facility] 1.2.840.114 [id number] Univers 00:00:00 00:00:00 Andrea HEALTH 350.1.13.10 it y of [place] 4.2.7.2.686 Sarkis as MAURICIO?BLEA [phone] Me ashley SIMPSON 044 [facility] OFFICE [facility] 2022-01-26 2022-01-26 Refill E[facility]na[facility] 1.2.945.000 [id number] Univers 00:00:00 00:00:00 Giovany HEALTH 350.1.13.10 it y of [place] 4.2.7.2.686 Sarkis as MAURICIO?BLEA [phone] Me ashley SIMPSON 220 [facility] 2022-01-24 2022-01-24 Outpatient R [facility] [id number] Univers 15:30:00 15:30:00 [facility] 2022-01-24 2022-01-24 Outpatient R [facility] [id number] Univers 15:30:00 15:30:00 [facility] 2022-01-13 2022-01-13 Telephone [facility] 1.2.344.020 [id number] Univers 00:00:00 00:00:00 [facility] 350.1.13.10 it y of [place] 4.2.7.2.686 Sarkis as MAURICIO?BLEA [phone] In ashley SIMPSON 370 [facility] 2022-01-10 2022-01-10 Outpatient R [facility] [id number] Univers 15:30:00 15:30:00 [facility] 2022-01-09 2022-01-09 Outpatient R MARIANN [facility] [id number] Univers 10:30:00 10:37:24 [facility] 2022-01-09 2022-01-09 Office [facility] 1.2.840.114 [id number] Univers 10:30:00 10:37:24 Visit [facility] 350.1.13.10 it y of [place] 4.2.7.2.686 Sarkis as MAURICIO?BLEA [phone] Me ashley SIMPSON 198 [facility] OFFICE [facility] 2022-01-09 2022-01-09 Outpatient R [facility] [id number] Univers 10:30:00 10:37:24 [facility] 2022-01-02 2022-01-02 Office [facility] 1.2.840.114 [id number] Univers 10:30:00 10:45:00 Visit [facility] 350.1.13.10 it y of [place] 4.2.7.2.686 Sarkis as MAURICIO?BLEA [phone] In ashley SIMPSON 198 [facility] OFFICE [facility] 2022-01-02 2022-01-02 Outpatient Hany [facility]RIHE[facility] [id number] Univers 10:30:00 10:30:00 [facility] 2022-01-02 2022-01-02 Outpatient Hany [facility] [id number] Univers 10:30:00 10:30:00 [facility] 2021-12-31 2021-12-31 [facility] 1.2.840.114 [id number] Univers 00:00:00 00:00:00 [facility] 350.1.13.10 it y of [place] 4.2.7.2.686 Sarkis as MAURICIO?BLEA [phone] In ashley SIMPSON 044 [facility] 2021-12-31 2021-12-31 [facility] 1.2.840.114 [id number] Univers 00:00:00 00:00:00 [facility] 350.1.13.10 it y of [place] 4.2.7.2.686 Sarkis as MAURICIO?BLEA [phone] In ashley SIMPSON 044 [facility] 2021-12-26 2021-12-26 Outpatient Hany WAITE [facility] [id number] Univers 14:00:00 14:37:45 [facility] 2021-12-26 2021-12-26 Office [facility] 1.2.840.114 [id number] Univers 14:00:00 14:37:45 Visit [facility] 350.1.13.10 it y of [place] 4.2.7.2.686 Sarkis as MAURICIO?BLEA [phone] In ashley SIMPSON 198 [facility] 2021-12-26 2021-12-26 Telephone [facility] 1.2.840.114 [id number] Univers 00:00:00 00:00:00 Giovany H HEALTH 350.1.13.10 it y of [place] 4.2.7.2.686 Sarkis as MAURICIO?BLEA [phone] In ashley SIMPSON 220 [facility] OFFICE [facility] 2021-12-26 2021-12-26 Telephone [facility] 1.2.840.114 [id number] Univers 00:00:00 00:00:00 Giovany Taylor HEALTH 350.1.13.10 it y of [place] 4.2.7.2.686 Sarkis as MAURICIO?BLEA [phone] In ashley SIMPSON 220 [facility] OFFICE [facility] 2021-12-25 2021-12-25 Refill [facility] 1.2.840.114 [id number] Univers 00:00:00 00:00:00 [facility] 350.1.13.10 it y of [place] 4.2.7.2.686 Sarkis as MAURICIO?BLEA [phone] In ashley SIMPSON 044 [facility] OFFICE [facility] 2021-12-19 2021-12-19 Outpatient R [facility]ANTRIHE[facility] [id number] Univers 10:15:00 11:07:04 DILAN copeland [facility] 2021-12-19 2021-12-19 Office [facility] 1.2.614.830 [id number] [id number] Univers 10:15:00 11:07:04 Visit [facility] 350.1.13.10 it y of [place] 4.2.7.2.686 Sarkis as MAURICIO?BLEA [phone] In ashley SIMPSON 198 [facility] OFFICE [facility] 2021-12-17 2021-12-17 Telephone [facility] 1.2.574.776 [id number] Univers 00:00:00 00:00:00 [facility] 350.1.13.10 it y of [place] 4.2.7.2.686 Sarkis as MAURICIO?BLEA [phone] In dicguilherme SIMPSON 044 [facility] OFFICE [facility] 2021-12-12 2021-12-12 Outpatient R MARIANN [facility] [id number] Univers 10:15:00 11:10:34 NOEMI ity [facility] 2021-12-12 2021-12-12 Office [facility] 1.2.840.114 [id number] Univers 10:15:00 11:10:34 Visit Noemi [facility] 350.1.13.10 it y of [place] 4.2.7.2.686 Sarkis as MAURICIO?BLEA [phone] In shiraguilherme SIMPSON 198 [facility] OFFICE [facility] 2021-12-12 2021-12-12 Outpatient Hany WAITE [facility] [id number] Univers 10:15:00 11:10:34 NOEMI itiraida [facility] 2021-12-12 2021-12-12 Outpatient Hany [facility] [id number] Univers 10:15:00 10:15:00 [facility]IMethod[facility] 2021-12-11 2021-12-11 Telephone [facility] 1.2.997.423 [id number] Univers 00:00:00 00:00:00 [facility] 350.1.13.10 it y of [place] 4.2.7.2.686 Sarkis as MAURICIO?BLEA [phone] In ashley SIMPSON 044 [facility] 2021-12-10 2021-12-10 [facility], Ang - [facility] 1.2.840.1 14 [id number] Univers 10:00:00 10:15:00 Visit Eduar [facility] 350.1.13.10 ity of [place] 4.2.7.2.686 Sarkis as MAURICIO?BLEA [id number] In ashley SIMPSON 353 [facility] OFFICE [facility] 2021-12-10 2021-12-10 Outpatient R EDUAR [facility] [id number] Univers 10:00:00 10:00:00 JEFFERSON iraida [facility] 2021-12-10 2021-12-10 Office [facility] 1.2.840.114 [id number] Univers 09:45:00 10:00:00 Visit [facility] 350.1.13.10 it y of [place] 4.2.7.2.686 Sarkis as MAURICIO?BLEA [phone] In ashley SIMPSON 044 [facility] OFFICE [facility] 2021-12-10 2021-12-10 Outpatient R EDUAR [facility] [id number] Univers 09:45:00 09:45:00 [facility] 2021-12-05 2021-12-05 Office [facility] 1.2.840.114 [id number] Univers 14:15:00 14:30:00 Visit [facility] 350.1.13.10 it y of [place] 4.2.7.2.686 Sarkis as MAURICIO?BLEA [phone] In ashley SIMPSON 198 [facility] 2021-12-05 2021-12-05 Outpatient R [facility] [id number] Univers 14:15:00 14:15:00 [facility] 2021-12-05 2021-12-05 Outpatient Hany [facility] [id number] Univers 14:15:00 14:15:00 [facility] 2021-12-05 2021-12-05 Orders Doctor BISI 1.2.840.114 [id number] Univers 00:00:00 00:00:00 Only Unassigned, BRYAN 350.1.13.10 ity of [place] [facility] 4.2.7.2.686 Sarkis as [phone] [address] 2021-12-02 2021-12-02 Refprabhjot Witt [facility] 1.2.840.114 [id number] Univers 00:00:00 00:00:00 [facility] 350.1.13.10 it y of [place] 4.2.7.2.686 Sarkis as MAURICIO?BLEA [phone] In ashley SIMPSON 044 [facility] 2021-12-01 2021-12-01 Viktoriya Gamino [facility] 1.2.840.114 [id number] Univers 00:00:00 00:00:00 [facility] HEALTH 350.1.13.10 [facility] 4.2.7.2.686 Sarkis as MAURICIO?BLEA [phone] In dicguilherme SIMPSON 220 [facility] OFFICE [facility] 2021-12-01 2021-12-01 Viktoriya Witt [facility] 1.2.840.114 [id number] Univers 00:00:00 00:00:00 [facility]ALTH 350.1.13.10 it y of [place] 4.2.7.2.686 Sarkis as MAURICIO?BLEA [phone] In ashley SIMPSON [address] MEDICAL OFFICE [facility] 2021-11-27 2021-11-27 Orders Doctor BISI 1.2.840.114 [id number] Univers 00:00:00 00:00:00 Only Unassigned, BRYAN 350.1.13.10 ity of [place] [facility] 4.2.7.2.686 Sarkis as [phone] [address] 2021-11-26 2021-11-26 Telephone [facility] 1.2.127.924 [id number] Univers 00:00:00 00:00:00 Noemi S HEALTH 350.1.13.10 it y of [place] 4.2.7.2.686 Sarkis as MAURICIO?BLEA [phone] In ashley SIMPSON [address] MEDICAL OFFICE [facility] 2021-11-25 2021-11-25 Telephone [facility] 1.2.417.015 [id number] Univers 00:00:00 00:00:00 [facility] 350.1.13.10 it y of [place] 4.2.7.2.686 Sarkis as MAURICIO?BLEA [phone] In ashley SIMPSON [address] [place] [address] OFFICE [facility] 2021-11-25 2021-11-25 Telephone [facility] 1.2.672.965 [id number] Univers 00:00:00 00:00:00 [facility] 350.1.13.10 it y of [place] 4.2.7.2.686 Sarkis as MAURICIO?BLEA [id number] In ashley SIMPSON [address] [place] [address] MEDICAL OFFICE [facility] 2021-11-20 2021-11-20 Telephone [facility] 1.2.362.708 [id number] Univers 00:00:00 00:00:00 Noemi S HEALTH 350.1.13.10 it y of [place] 4.2.7.2.686 Sarkis as MAURICIO?BLEA [phone] In ashley SIMPSON [address] MEDICAL OFFICE [facility] 2021-11-19 2021-11-19 Office [facility] 1.2.840.114 [id number] Univers 13:30:00 13:45:00 Visit Noemi Garcia HEALTH 350.1.13.10 it y of [place] 4.2.7.2.686 Sarkis as MAURICIO?BLEA [phone] In ashley SIMPSON 198 [facility] OFFICE [facility] 2021-11-19 2021-11-19 Outpatient R MARIANN [facility] [id number] Univers 13:30:00 13:30:00 NOEMI copeland [facility] 2021-11-13 2021-11-13 Office [facility] 1..840.114 [id number] Univers 09:45:00 09:54:37 Visit [facility]ALTH 350.1.13.10 it y of [place] 4.2.7.2.686 Sarkis as MAURICIO?BLEA [phone] In ashley SIMPSON 044 [facility] OFFICE [facility] 2021-11-13 2021-11-13 Outpatient R EDUAR [facility] [id number] Univers 09:45:00 09:54:37 JEFFERSON ity [facility] 2021-11-13 2021-11-13 Outpatient R EDUAR [facility] [id number] Univers 09:45:00 09:45:00 [facility] 2021-11-13 2021-11-13 Outpatient Hany WITT [facility] [id number] Univers 09:45:00 09:45:00 [facility] 2021-11-12 2021-11-12 Refill Eduar [facility] 1.2.840.114 [id number] Univers 00:00:00 00:00:00 [facility] 350.1.13.10 it y of [place] 4.2.7.2.686 Sarkis as PROFESSIO [phone] In ashley TIANNA [address] OFFICE BUILDING ONE 2021-11-11 2021-11-11 Refprabhjot Gamino [facility] 1.2.840.114 [id number] Univers 00:00:00 00:00:00 Marylou HEALTH 350.1.13.10 it y of [place] 4.2.7.2.686 Sarkis as MAURICIO?BLEA [phone] Me dical CALVIN [address] MEDICAL OFFICE BUILDING 2021-11-04 2021-11-04 Refill [facility] 1.2.840.114 [id number] Univers 00:00:00 00:00:00 [facility] 350.1.13.10 it y of [place] 4.2.7.2.686 Sarkis as MAURICIO?BLEA [phone] In dicguilherme SIMPSON [address] MEDICAL OFFICE [facility] 2021-11-01 2021-11-01 [facility] 1.2.840.114 [id number] Univers 00:00:00 00:00:00 Marylou HEALTH 350.1.13.10 it y of [place] 4.2.7.2.686 Sarkis as MAURICIO?BLEA [phone] In ashley SIMPSON [address] MEDICAL OFFICE [facility] 2021-10-31 2021-10-31 [facility] 1.2.840.114 [id number] Univers 00:00:00 00:00:00 [facility] 350.1.13.10 it y of [place] 4.2.7.2.686 Sarkis as MAURICIO?BLEA [phone] In dicguilherme SIMPSON [address] MEDICAL OFFICE [facility] 2021-10-21 2021-10-21 Telephone [facility] 1.2.870.476 [id number] Univers 00:00:00 00:00:00 [facility] 350.1.13.10 it y of [place] 4.2.7.2.686 Sarkis as MAURICIO?BLEA [phone] In dicguilherme SIMPSON [address] MEDICAL OFFICE [facility] 2021-10-10 2021-10-10 Telephone [facility] 1.2.142.322 [id number] Univers 00:00:00 00:00:00 Noemi S HEALTH 350.1.13.10 it y of [place] 4.2.7.2.686 Sarkis as MAURICIO?BLEA [phone] In dical CALVIN [address] MEDICAL OFFICE [facility] 2021-10-07 2021-10-07 Outpatient R [facility] [id number] Univers 12:15:00 12:15:00 JEFFERSON [facility] 2021-10-02 2021-10-02 Outpatient R [facility] [id number] Univers 14:45:00 15:30:28 NOEMI iraida [facility] 2021-10-02 2021-10-02 Office [facility] 1.2.840.114 [id number] Univers 14:45:00 15:15:00 Visit Noemi [facility] 350.1.13.10 it y of [place] 4.2.7.2.686 Sarkis as MAURICIO?BLEA [phone] In ashley CASTLE 198 [facility] OFFICE BUILDING 2021-10-02 2021-10-02 Outpatient R [facility] [id number] Univers 14:45:00 14:45:00 [facility] 2021-10-02 2021-10-02 Refill [facility] 1.2.840.114 [id number] Univers 00:00:00 00:00:00 [facility] 350.1.13.10 it y of [place] 4.2.7.2.686 Sarkis as PROFESSIO [phone] In ashley [address] OFFICE BUILDING ONE 2021-09-20 2021-09-20 [facility], Ang - Db [facility] 1.2.840.1 14 [id number] Univers 10:30:00 10:45:00 Visit Jefferson Witt [facility] 350.1.13.10 ity of [place] 4.2.7.2.686 Sarkis as MAURICIO?BLEA [phone] In ashley SIMPSON 353 [facility] OFFICE BUILDING 2021-09-20 2021-09-20 Outpatient R [facility] [id number] Univers 10:30:00 10:30:00 [facility] 2021-09-19 2021-09-19 Outpatient R [facility] [id number] Univers 10:30:00 10:30:00 [facility] 2021-09-17 2021-09-17 Telephone [facility] 1.2.125.977 [id number] Univers 00:00:00 00:00:00 [facility] 350.1.13.10 it y of [place] 4.2.7.2.686 Sarkis as MAURICIO?BLEA [phone] In ashley SIMPSON 044 [facility] OFFICE [facility] 2021-09-17 2021-09-17 Telephone [facility] 1.2.836.941 [id number] Univers 00:00:00 00:00:00 [facility] 350.1.13.10 it y of [place] 4.2.7.2.686 Sarkis as MAURICIO?BLEA [id number] In ashley SIMPSON 044 [facility] OFFICE [facility] 2021-09-13 2021-09-13 Outpatient Hany [facility] [id number] Univers 10:30:00 10:30:00 [facility] 2021-09-12 2021-09-12 Outpatient Hany [facility] [id number] Univers 12:00:00 12:00:00 [facility] 2021-09-12 2021-09-12 Office [facility] [id number] Univers 10:15:00 10:30:00 Visit [facility] [id number] [facility] [id number] Sarkis as MAURICIO?BLEA [phone] In shiranv [address] 2021-09-12 2021-09-12 [facility] [id number] Univers 10:15:00 10:15:00 [facility] 2021-09-12 2021-09-12 Outpatient [facility] [id number] Univers 10:15:00 10:15:00 [facility] 2021-09-12 2021-09-12 [facility]phone [facility] [id number] Univers 00:00:00 00:00:00 [facility] [id number] it y of [place] [id number] Sarkis as MAURICIO?BLEA [id number] In ashley SIMPSON 220 [facility] OFFICE [facility] 2021-09-10 2021-09-10 Outpatient Hany [facility]INO [facility] [id number] Univers 10:30:00 [facility]01:21 [facility] 2021-09-10 Office [facility] [id number] Univers 10:30:00 11:01:21 Visit [facility] [id number] [facility] [id number] Sarkis as MAURICIO?BLEA [id number] In shiraguilherme SIMPSON 220 [facility] OFFICE [facility] 2021-09-10 2021-09-10 [facility] [id number] Univers 10:30:00 11:01:21 [facility] 2021-09-10 2021-09-10 [facility] [id number] Univers 10:30:00 10:30:00 [facility] 2021-09-10 2021-09-10 [facility] [id number] Univers 10:30:00 10:30:00 [facility] 2021-09-10 2021-09-10 [facility] [id number] Univers 10:30:00 10:30:00 [facility] 2021-09-10 2021-09-10 [facility] [id number] Univers 10:30:00 10:30:00 [facility] 2021-09-04 2021-09-04 [facility] [id number] Univers 00:00:00 00:00:00 [facility] [id number] it y of [place] [id number] Sarkis as MAURICIO?BLEA [id number] In shiraguilherme SIMPSON 044 [facility] OFFICE [facility] 2021-09-03 2021-09-03 Emergency X [facility] ERT [id number] Univers 14:14:00 16:13:00 PRAVEEN [facility] 2021-09-03 2021-09-03 Emergency [facility] 1.2.976.185 [id number] Univers 14:14:00 16:13:00 Praveen Hany MIRNA 350.1.13.10 i ty of [place].7.2.[place] [phone] [address] 2021-09-03 2021-09-03 Telephone Eduar [facility] 1.2.430.636 [id number] Univers 00:00:00 00:00:00 [facility] 350.1.13.10 it y of [place] 4.2.7.2.686 Sarkis as MAURICIO?BLEA [phone] [address] MEDICAL OFFICE BUILDING 2021-09-02 2021-09-02 [facility] 1.2.840.114 [id number] Univers 00:00:00 00:00:00 [facility] 350.1.13.10 it y of [place] 4.2.7.2.686 Sarkis as PROFESSIO [phone] [address] OFFICE BUILDING ONE 2021-09-02 2021-09-02 [facility] 1.2.840.114 [id number] Univers 00:00:00 00:00:00 [facility] 350.1.13.10 it y of [place] 4.2.7.2.686 Sarkis as MAURICIO?BLEA [phone] [address] OFFICE BUILDING 2021-08-29 2021-08-29 Office [facility] 1.2.840.114 [id number] Univers 11:45:00 12:00:00 Visit [facility] 350.1.13.10 it y of [place] 4.2.7.2.686 Sarkis as MAURICIO?BLEA [phone] [address] OFFICE BUILDING 2021-08-29 2021-08-29 Outpatient R EDUAR [facility] [id number] Univers 11:45:00 11:45:00 JEFFERSON copeland [facility] 2021-08-28 2021-08-28 Refprabhjot [facility] 1.2.840.114 [id number] Univers 00:00:00 00:00:00 Andrea HEALTH 350.1.13.10 it y of [place] 4.2.7.2.686 Sarkis as PROFESSIO [phone] In ashley WYNN [address] OFFICE BUILDING ONE 2021-08-15 2021-08-15 Chinchilla Machine Operator Lab, Ang - Db [facility] 1.2.840.1 14 [id number] Univers 10:45:00 11:00:00 Visit [facility] Witt 350.1.13.10 ity of [place] 4.2.7.2.686 Sarkis as MAURICIO?BLEA [phone] In ashley SIMPSON 353 [facility] OFFICE [facility] 2021-08-15 2021-08-15 Outpatient Hany WITT [facility] [id number] Univers 10:45:00 10:45:00 [facility] 2021-08-15 2021-08-15 Office [facility] 1.2.840.114 [id number] Univers 10:00:00 10:15:00 Visit [facility] 350.1.13.10 it y of [place] 4.2.7.2.686 Sarkis as MAURICIO?BLEA [phone] [facility] 044 [facility] OFFICE [facility] 2021-08-15 2021-08-15 Outpatient Hany WITT [facility] [id number] Univers 10:00:00 10:00:00 JEFFERSON ity [facility] 2021-08-15 2021-08-15 Outpatient Hany WITT [facility] [id number] Univers 10:00:00 10:00:00 JEFFERSON ity [facility] 2021-08-15 2021-08-15 Outpatient Hany WITT [facility] [id number] Univers 10:00:00 10:00:00 [facility] 2021-08-15 2021-08-15 Orders Doctor MATHEWS 1.2.840.114 [id number] Univers 00:00:00 00:00:00 Only Unassigned, BRYAN 350.1.13.10 ity of [facility] 4.2.7.2.686 Sarkis as [phone] [address] 2021-08-12 2021-08-12 Outpatient [facility] [id number] Univers 10:00:00 10:00:00 [facility] 2021-08-12 2021-08-12 Outpatient R WITT [facility] [id number] Univers 10:00:00 10:00:00 JEFFERSON iraida [facility] 2021-08-07 2021-08-07 [facility] 1.2.558.167 [id number] Univers 00:00:00 00:00:00 Brian BRADLEY 350.1.13.10 ity of [place].2.7.2.[place] [phone] In dical NAL 059 [facility] 2021-08-06 2021-08-06 Ref[facility] 1.2.840.114 [id number] Univers 00:00:00 00:00:00 [facility] 350.1.13.10 [facility] 4.2.7.2.686 Sarkis as PROFESSIO [phone] In dical NAL [address] OFFICE [facility] ONE 2021-08-06 2021-08-06 [facility] 1.2.619.441 [id number] Univers 00:00:00 00:00:00 Brian BRADLEY 350.1.13.10 ity of [place] 4.2.7.2.[place] [phone] In dical NAL 059 [facility] 2021-08-05 2021-08-05 Outpatient [facility] [id number] Univers 09:54:13 23:59:00 [facility] 2021-08-05 2021-08-05 [facility] 1.2.840.114 [id number] Univers 09:54:13 23:59:00 Encounter Brian BRADLEY 350.1.13.10 ity of [facility] 4.2.7.2.686 [place] [phone] In dical NAL 843 [facility] 2021-08-02 2021-08-02 Laboratory Only, Adc Test [facility] 1.2.840. 114 [id number] Univers 15:30:00 15:45:00 Only Maryam Mckeon 350.1.13.10 ity of [facility] 4.2.7.2.686 [place] [id number] [address] 2021-08-02 2021-08-02 Outpatient R MIKE [facility] [id number] Univers 15:30:00 15:30:00 MARYAM copeland [facility] 2021-07-22 2021-07-22 Refill [facility] 1.2.840.114 [id number] Univers 00:00:00 00:00:00 [place] [facility] 350.1.13.10 it y of [place] 4.2.7.2.686 Sarkis as MAURICIO?BLEA [phone] [address] OFFICE [facility] 2021-07-16 2021-07-16 Telephone [facility] 1.2.392.882 [id number] Univers 00:00:00 00:00:00 [facility] 350.1.13.10 it y [facility] 4.2.7.2.686 Sarkis as MAURICIO?BLEA [phone] [address] OFFICE [facility] 2021-07-10 2021-07-10 Outpatient R [facility] [id number] Univers 09:30:00 09:30:00 JEFFERSON iradia [facility] 2021-07-09 2021-07-09 Telephone [facility] 1.2.966.119 [id number] Univers 00:00:00 00:00:00 [facility] 350.1.13.10 it y of [place] 4.2.7.2.686 Sarkis as MAURICIO?BLEA [phone] [address] MEDICAL OFFICE [facility] 2021-07-08 2021-07-08 Telephone [facility] 1.2.033.173 [id number] Univers 00:00:00 00:00:00 [facility] 350.1.13.10 it y of [place] 4.2.7.2.686 Sarkis as MAURICIO?BLEA [phone] [address] OFFICE [facility] 2021-07-03 2021-07-03 Office [facility] 1.2.840.114 [id number] Univers 15:09:59 15:24:59 Visit [facility] 350.1.13.10 it y of [place] 4.2.7.2.686 Sarkis as MAURICIO?BLEA [phone] [facility] OFFICE [facility] 2021-07-03 2021-07-03 Outpatient Hany WITT [facility] [id number] Univers 15:15:00 15:15:00 JEFFERSON copeland [facility] 2021-07-03 2021-07-03 [facility] 1.2.840.114 [id number] Univers 00:00:00 00:00:00 [facility] 350.1.13.10 it y of [place] 4.2.7.2.686 Sarkis as PROFESSIO [phone] [address] OFFICE [facility] ONE 2021-07-01 2021-07-01 Telephone [facility] 1.2.811.193 [id number] Univers 00:00:00 00:00:00 [facility] 350.1.13.10 it y of [place] 4.2.7.2.686 Sarkis as MAURICIO?BLEA [phone] [address] OFFICE [facility] 2021-06-26 2021-06-26 [facility]prabhjot [facility] 1.2.840.114 [id number] Univers 00:00:00 00:00:00 [facility] 350.1.13.10 it y of [place] 4.2.7.2.686 Sarkis as MAURICIO?BLEA [phone] [facility] CORRINE[address] OFFICE [facility] 2021-06-26 2021-06-26 Telephone [facility] 1.2.468.813 [id number] Univers 00:00:00 00:00:00 [facility] 350.1.13.10 it y of [place] 4.2.7.2.686 Sarkis as MAURICIO?BLEA [phone] [address] OFFICE [facility] 2021-06-24 2021-06-24 Outpatient Hany WITT [facility] [id number] Univers 09:00:00 09:00:00 JEFFERSON copeland [facility] 2021-06-24 2021-06-24 Telephone [facility] 1.2.798.723 [id number] Univers 00:00:00 00:00:00 [facility] 350.1.13.10 it y of [place] 4.2.7.2.686 Sarkis as MAURICIO?BLEA [phone] [address] MEDICAL OFFICE [facility] 2021-06-20 2021-06-20 Telephone [facility] 1.2.817.199 [id number] Univers 00:00:00 00:00:00 Jefferson [facility] 350.1.13.10 it y of [place] 4.2.7.2.686 Sarkis as MAURICIO?BLEA [phone] [address] OFFICE [facility] 2021-06-19 2021-06-19 Outpatient R [facility] [id number] Univers 12:00:00 12:00:00 [facility] 2021-06-19 2021-06-19 Chinchilla Machine Operator Lab, Ang - [facility] 1.2.840.1 14 [id number] Univers 10:09:29 10:24:29 Visit Jefferson Witt [facility] 350.1.13.10 ity of [place] 4.2.7.2.686 Sarkis as MAURICIO?BLEA [phone] [facility] 353 [facility] OFFICE [facility] 2021-06-19 2021-06-19 Office [facility] 1.2.840.114 [id number] Univers 09:41:59 10:11:59 Visit Jefferson [facility] 350.1.13.10 it y of [place] 4.2.7.2.686 Sarkis as MAURICIO?BLEA [phone] [address] OFFICE [facility] 2021-06-19 2021-06-19 Outpatient Hany WITT [facility] [id number] Univers 10:00:00 10:00:00 JEFFERSON copeland [facility] 2021-06-18 2021-06-18 Telephone [facility] 1.2.805.624 [id number] Univers 00:00:00 00:00:00 Jefferson [facility] 350.1.13.10 it y of [place] 4.2.7.2.686 Sarkis as MAURICIO?BLEA [phone] [address] 2021-06-11 2021-06-11 Outpatient R CLIFF [facility] [id number] Univers 14:40:00 14:40:00 DENISAIVETH min o f [facility] 2021-06-10 2021-06-10 Refill CristhianGALLUP [facility] 1.2.840.114 [id number] Univers 00:00:00 00:00:00 [facility] 350.1.13.10 it y of [place] 4.2.7.2.686 Sarkis as PROFESSIO [id number] [address] 2021-06-10 2021-06-10 Telephone [facility] 1.2.396.651 [id number] Univers 00:00:00 00:00:00 [facility] 350.1.13.10 it y of [place] 4.2.7.2.686 Sarkis as MAURICIO?BLEA [phone] [address] 2021-06-09 2021-06-09 Refill [facility] 1.2.840.114 [id number] Univers 00:00:00 00:00:00 [facility] 350.1.13.10 it y of [place] 4.2.7.2.686 Sarkis as PROFESSIO [phone] [address] 2021-06-04 2021-06-04 Imm/Inj Nurse, Adc Pob Immunization [facility] 1.2.840.114 [id number] Univers 14:44:49 14:45:00 Visit Severo Lara 350.1.13 .10 ity of [place] [phone] [facility] 421 [facility] 2021-06-04 2021-06-04 Outpatient R AUDREY [facility] [id number] Univers 14:00:00 14:35:39 SENDIL ity of [facility] 2021-06-04 2021-06-04 [facility] 1.2.840.114 [id number] Univers 13:38:39 14:35:39 Visit Brian BRADLEY 350.1.13.10 ity of [place] 4.2.7.2.686 [place] [phone] In dical NAL [address] BUILDING 2021-06-04 2021-06-04 Outpatient Hany LARA [facility] [id number] Univers 14:30:00 14:30:00 SEVERO ity [facility] 2021-06-04 2021-06-04 Outpatient Hany LARA [facility] [id number] Univers 10:40:00 10:40:00 [facility] 2021-06-04 2021-06-04 Transition GARRY Mckeon 1.2.840.114 [id number] Univers 00:00:00 00:00:00 of Care Elizabeth UMANA 350.1.13.10 i ty anabel [place] 4.2.7.2.686 [place] [id number] [facility] [address] 2021-05-31 2021-06-01 Outpatient X [facility] [id number] Univers 13:04:00 12:55:00 CHERYLE iraida [facility] 2021-05-31 2021-06-01 [facility] 1.2.840.1 14 [id number] Univers 13:04:00 12:55:00 Encounter Cheryle Perera 350.1.13.10 ity [facility] 4.2.7.2.[place] [phone] [facility] [address] 2021-05-30 2021-05-30 Outpatient Hany LARA [facility] [id number] Univers 13:30:00 13:30:00 [facility] 2021-05-30 2021-05-30 Viktoriya [facility] 1.2.840.114 [id number] Univers 00:00:00 00:00:00 [facility] 350.1.13.10 it y of [place] 4.2.7.2.686 Sarkis as PROFESSIO [phone] In dical NAL [address] OFFICE BUILDING ONE 2021-05-29 2021-05-29 Telephone [facility] 1.2.867.986 [id number] Univers 00:00:00 00:00:00 [facility] 350.1.13.10 it y of [place] 4.2.7.2.686 Sarkis as Mauricio?Blea [phone] In ashley simpson 044 [facility] Office Building 2021-05-28 2021-05-28 Telephone [facility] 1.2.297.297 [id number] Univers 00:00:00 00:00:00 [facility] 350.1.13.10 it y of [place] 4.2.7.2.686 Sarkis as MAURICIO?BLEA [phone] In ashley SIMPSON [address] [place] [address] OFFICE [facility] 2021-05-27 2021-05-27 Telephone [facility] 1.2.534.125 [id number] Univers 00:00:00 00:00:00 [facility] 350.1.13.10 it y of [place] 4.2.7.2.686 Sarkis as Mauricio?Blea [phone] In ashley simpson [address] [place] [address] Office [facility] 2021-05-27 2021-05-27 Telephone [facility] 1.2.331.761 [id number] Univers 00:00:00 00:00:00 [facility] 350.1.13.10 it y of [place] 4.2.7.2.686 Sarkis as Mauricio?Blea [phone] In ashley simpson 220 [facility] Office [facility] 2021-05-22 2021-05-22 Refprabhjot [facility] 1.2.840.114 [id number] Univers 00:00:00 00:00:00 [facility] 350.1.13.10 it y of [place] 4.2.7.2.686 Sarkis as Professio [phone] In ashley wynn [address] [place] [address] Office [facility] One 2021-05-12 2021-05-12 Refprabhjot [facility] 1.2.840.114 [id number] Univers 00:00:00 00:00:00 [facility] 350.1.13.10 it y of [place] 4.2.7.2.686 Sarkis as Professio [phone] [address] Office [facility] One 2021-05-10 2021-05-10 Outpatient R STEVENSON [facility] [id number] Univers 13:30:00 14:11:31 MARYLOU ity of [facility] 2021-05-10 2021-05-10 Office [facility] 1.2.840.114 [id number] Univers 13:28:18 14:11:31 Visit [facility] 350.1.13.10 it [facility] 4.2.7.2.686 Sarkis as MAURICIO?BLEA [phone] [address] OFFICE [facility] 2021-05-09 2021-05-09 Telephone Elina [facility] 1.2.840.114 [id number] Univers 00:00:00 00:00:00 Giovany [place] 350.1.13.10 i ty of [place] 4.2.7.2.686 [place] Profess[place] [phone] [address] 2021-05-06 2021-05-06 Orders Doctor BISI 1.2.840.114 [id number] Univers 00:00:00 00:00:00 Only Unassigned, BRYAN 350.1.13.10 ity of [place] [facility] 4.2.7.2.686 Sarkis as [phone] [address] 2021-05-01 2021-05-01 Telephone Eduar [facility] 1.2.045.767 [id number] Univers 00:00:00 00:00:00 [facility] 350.1.13.10 it y of [place] 4.2.7.2.686 Sarkis as Mauricio?Blea [phone] [address] Office Building 2021-04-25 2021-04-25 Office [facility] 1.2.840.114 [id number] Univers 08:59:52 09:29:52 Visit [facility] 350.1.13.10 it y of [place] 4.2.7.2.686 Sarkis as Mauricio?Blea [phone] [address] Office Building 2021-04-25 2021-04-25 Outpatient R EDUAR [facility] [id number] Univers 09:00:00 09:00:00 JEFFERSON copeland [facility] 2021-04-24 2021-04-24 Urgent Ana Riddle [facility] 1.2.840.114 [id number] Univers 09:29:51 09:50:31 Care Doron Reed 350.1.13.10 ity of [place] 4.2.7.2.686 Sarkis as Mauricio?Blea [phone] In shiraguilherme simpson 370 [facility] Office [facility] 2021-04-24 2021-04-24 Outpatient R CORINNA [facility] [id number] Univers 09:40:00 09:40:00 DORON copeland o f [facility] 2021-04-18 2021-04-18 Orders Doctor BISI 1.2.840.114 [id number] Univers 00:00:00 00:00:00 Only Unassigned, BRYAN 350.1.13.10 ity of [place] [facility] 4.2.7.2.686 Sarkis as [phone] [address] 2021-04-15 2021-04-15 Telephone Stevenson [facility] 1.2.187.549 [id number] Univers 00:00:00 00:00:00 Marylou Bradley 350.1.13.10 i ty of [place] 4.2.7.2.[place] Profess[place] [phone] In shiraguilherme wynn 220 [facility] 2021-04-11 2021-04-11 Office [facility] 1.2.840.114 [id number] Univers 09:38:42 09:57:48 Visit [facility] 350.1.13.10 it y of [place] 4.2.7.2.686 Sarkis as Mauricio?Blea [phone] In ashley simpson [address] [facility] 2021-04-11 2021-04-11 Outpatient Hany WITT [facility] [id number] Univers 09:45:00 09:45:00 JEFFERSON copeland [facility] 2021-04-11 2021-04-11 Chinchilla Machine Operator 2, Adc Lab [facility] 1.2.840.114 [id number] Univers 08:12:22 08:27:22 Visit Jefferson Witt 350.1.13.10 ity of [place] 4.2.7.2.686 [place] Profess[place] [phone] [address] 2021-04-11 2021-04-11 Chinchilla Machine Operator 2, [facility] Lab [facility] 1.2.840.114 [id number] [facility] 08:12:22 08:27:22 Visit Jefferson Witt 350.1.13.10 ity of [place] 4.2.7.2.686 [place] Profess[place] [phone] [address] 2021-04-10 2021-04-10 Outpatient [facility] [id number] Univers 12:00:00 12:00:00 JEFFERSON itiraida [facility] 2021-03-31 2021-03-31 Refprabhjot RoldanersGALLUP INDI[facility] 1.2.840.114 [id number] Univers 00:00:00 00:00:00 [facility] 350.1.13.10 it y of [place] 4.2.7.2.686 Sarkis as Professio [phone] [address] One 2021-03-31 2021-03-31 Doniprabhjot WittG[facility] 1.2.840.114 [id number] Univers 00:00:00 00:00:00 [facility] 350.1.13.10 it y of [place] 4.2.7.2.686 Sarkis as Professio [phone] [address] One 2021-03-12 2021-03-12 Viktoriya [facility] 1.2.840.114 [id number] Univers 00:00:00 00:00:00 [facility] 350.1.13.10 it y of [place] 4.2.7.2.686 Sarkis as Professio [phone] [address] One 2021-03-04 2021-03-04 Viktoriya [facility] 1.2.840.114 [id number] Univers 00:00:00 00:00:00 [facility] 350.1.13.10 it y of [place] 4.2.7.2.686 Sarkis as Professio [id number] In dical nal 044 [facility] One 2021-03-01 2021-03-01 Refprabhjot [facility] 1.2.840.114 [id number] Univers 00:00:00 00:00:00 [facility] 350.1.13.10 it y of [place] 4.2.7.2.686 Sarkis as Professio [phone] In dical nal [address] Office [facility] One 2021-02-26 2021-02-26 [place]rett [facility] 1.2.015.949 [id number] Univers 00:00:00 00:00:00 [facility] 350.1.13.10 it y of [place] 4.2.7.2.686 Sarkis as Professio [phone] In dical nal 044 [facility] One 2021-02-22 2021-02-22 Everett EdaurGALLUP [facility] 1.2.326.986 [id number] Univers 00:00:00 00:00:00 [facility] 350.1.13.10 it y of [place] 4.2.7.2.686 Sarkis as Professio [phone] [facility] [address] [place] [address] One 2021-02-19 2021-02-19 [facility] 1.2.840.114 [id number] Univers 00:00:00 00:00:00 [facility] 350.1.13.10 it y of [place] 4.2.7.2.686 Sarkis as Professio [phone] In dical nal [address] Office [facility] One 2021-02-18 2021-02-18 [facility] 1.2.840.114 [id number] Univers 11:40:45 23:59:00 Encounter Josse Bradley 350.1.13.10 ity of [place] 4.2.7.2.686 [place] [phone] [facility] [address] 2021-02-18 2021-02-18 Outpatient [facility] [id number] Univers 00:00:00 00:00:00 JOSSE copeland [facility] 2021-02-18 2021-02-18 Orders Doctor BISI 1.2.840.114 [id number] Univers 00:00:00 00:00:00 Only Unassigned, BRYAN 350.1.13.10 ity of [place] [facility] 4.2.7.2.686 Sarkis as [phone] [address] 2021-02-18 2021-02-18 Telephone [facility] 1.2.438.878 [id number] Univers 00:00:00 00:00:00 [facility] 350.1.13.10 it y of [place] 4.2.7.2.686 Sarkis as Professio [phone] [address] One 2021-02-08 2021-02-08 Outpatient R ELINA [facility] [id number] Univers 08:30:00 08:30:00 GIOVANY min [facility] 2021-02-04 2021-02-04 Urgent Provider, [facility] 1.2.840.114 [id number] Univers 12:13:45 12:31:27 Care Josse Leyva 350.1.13.10 ity of [place] 4.2.7.2.686 Sarkis as Professio [phone] [address] One 2021-02-04 2021-02-04 Outpatient Hany LEYVA [facility] [id number] Univers 12:20:00 12:20:00 JOSSE copeland [facility] 2021-02-04 2021-02-04 [facility] 1.2.840.114 [id number] Univers 00:00:00 00:00:00 [facility] [id number] it y of [place] [id number] [place] as Professio [phone] [address] Office [facility] One 2021-02-01 2021-02-01 Office Marylou Gamino [facility] 1.2.840.114 [id number] Univers 13:13:42 15:01:09 Visit Giovany Antoine [id number] ity [place] [id number] [place] Profess[place] [phone] In dical nal 220 [facility] 2021-02-01 2021-02-01 Outpatient R ELINA [facility] [id number] Univers 13:30:00 13:30:00 GIOVANY itiraida [facility] 2021-02-01 2021-02-01 [facility] [id number] Univers 13:30:00 13:30:00 GIOVANY [facility] 2021-01-24 2021-01-24 [facility]jot [facility] 1.2.840.114 [id number] Univers 00:00:00 00:00:00 [facility] [id number] it y of [place] [id number] [place] as Professio [phone] In dical nal 044 [facility] One 2021-01-16 2021-01-16 [facility]ya [facility] 1.2.840.114 [id number] Univers 00:00:00 00:00:00 [facility] [id number] it y of [place] [id number] [place] as Professio [phone] In dical nal 044 [facility] One 2021-01-10 2021-01-10 [facility] [id number] Univers 00:00:00 00:00:00 [facility] [id number] ity of [place] [id number] [place] as Professio [phone] In dical nal 044 [facility] One 2021-01-09 2021-01-09 Urgent Romi Dominguez [facility] 1.2.840 .114 [id number] Univers 15:52:45 16:12:45 Josse Hernández [facility] [id number] ity of [place] [id number] [place] as Professio [phone] In dical nal 044 [facility] One 2021-01-09 2021-01-09 Outpatient R GORDON [facility] [id number] Univers 16:00:00 16:00:00 JOSSEJING copeland [facility] 2021-01-07 2021-01-07 [facility]prabhjot [facility] 1.2.840.114 [id number] Univers 00:00:00 00:00:00 [facility] 350.1.13.10 it y of [place] 4.2.7.2.686 Sarkis as Professio [phone] [address] Office [facility] One 2021-01-07 2021-01-07 Refill [facility] 1.2.840.114 [id number] Univers 00:00:00 00:00:00 [facility] 350.1.13.10 it y of [place] 4.2.7.2.686 [place]arkis as Professio [phone] [address] Office [facility] One 2021-01-07 2021-01-07 Telephone [facility] 1.2.513.133 [id number] Univers 00:00:00 00:00:00 [facility] 350.1.13.10 it y of [place] 4.2.7.2.686 [place] as Professio [phone] [address] One 2021-01-07 2021-01-07 Telephone [facility] 1.2.423.903 [id number] [id number] Univers 00:00:00 00:00:00 [facility] 350.1.13.10 it y of [place] 4.2.7.2.686 [place]ark[place] as Professio [phone] [address] Office [facility] One 2021-01-03 2021-01-03 Outpatient R EDUAR [facility] [id number] Univers 12:15:00 12:15:00 JEFFERSON joaniraida [facility] 2021-01-03 2021-01-03 Office [facility] 1.2.840.114 [id number] Univers 11:45:12 12:00:12 Visit [facility] 350.1.13.10 it y of [place] 4.2.7.2.686 [place] as Professio [phone] [facility] nal [address] [place] Office [facility] One 2021-01-02 2021-01-02 Refill [facility] 1.2.840.114 [id number] 02 Univers 00:00:00 00:00:00 [facility] 350.1.13.10 it y of [place] 4.2.7.2.686 [place] as Professio [phone] [facility] nal [address] [place] [address] Office [facility] One 2021-01-02 2021-01-02 Telephone [facility] 1.2.093.620 [id number] [id number] Univers 00:00:00 00:00:00 [facility] 350.1.13.10 it y of [place] 4.2.7.2.686 [place] as Professio [phone] [facility] nal [address] [place] [address] One 2021-01-01 2021-01-01 Refprabhjot [facility] 1.2.840.114 [id number] Univers 00:00:00 00:00:00 [facility] 350.1.13.10 it y of [place] 4.2.7.2.686 [place] as Professio [phone] [address] One 2021-01-01 2021-01-01 Orders Doctor BISI 1.2.840.114 [id number] Univers 00:00:00 00:00:00 Only Unassigned, BRYAN 350.1.13.10 ity of [place] [facility] 4.2.7.2.686 Sarkis as [phone] [facility] [address] [place] 2020-12-24 2020-12-24 Nurse BISI Fitzgerald 1.2.840.114 [id number] 73 Univers 00:00:00 00:00:00 Triage Araceli T BRYAN 350.1.13.10 it y of HOSPITAL 4.2.7.2.686 [place] as [phone] [facility] [address] [place] 2020-12-07 2020-12-07 Refprabhjot [facility] 1.2.840.114 [id number] 93 Univers 00:00:00 00:00:00 [facility] 350.1.13.10 it y of [place] 4.2.7.2.686 [place] as Professio [phone] [address] Office [facility] One 2020-12-05 2020-12-05 Telephone [facility] 1.2.061.848 [id number] Univers 00:00:00 00:00:00 [facility] 350.1.13.10 it y of [place] 4.2.7.2.686 [place] as Professio [phone] [address] One 2020-12-03 2020-12-03 [facility] 1.2.840.114 [id number] 92 Univers 00:00:00 00:00:00 [facility] 350.1.13.10 it y of [place] 4.2.7.2.686 [place] as Professio [phone] [address] One 2020-12-03 2020-12-03 [facility] 1.2.840.114 [id number] Univers 00:00:00 00:00:00 [facility] 350.1.13.10 it y of [place] 4.2.7.2.686 [place] as Professio [phone] [address] One 2020-11-27 2020-11-27 Outpatient Hany WITT [facility] [id number] Univers 09:21:28 23:59:00 JEFFERSON copeland [facility] 2020-11-27 2020-11-27 [facility] 1.2.840.114 [id number] Univers 09:21:28 23:59:00 Encounter Jefferson Bradley 350.1.13.10 ity [facility] 4.2.7.2.686 [place] [facility] [phone] [facility] [address] [place] 2020-11-27 2020-11-27 Outpatient H[facility] [id number] Univers 00:00:00 00:00:00 JEFFERSON copeland [facility] 2020-11-27 2020-11-27 Orders Doctor MATHEWS 1.2.840.114 [id number] Univers 00:00:00 00:00:00 Only Unassigned, BRYAN 350.1.13.10 ity of [place] [facility] 4.2.7.2.686 Sarkis as [phone] [facility] [address] 2020-11-21 2020-11-21 Refill [facility] 1.2.840.114 [id number] Univers 00:00:00 00:00:00 [facility] 350.1.13.10 it y of [place] 4.2.7.2.686 [place] as Professio [phone] [address] Office [facility] One 2020-11-14 2020-11-14 [facility] 1.2.542.763 [id number] 3833 Univers 00:00:00 00:00:00 [facility] 350.1.13.10 it y of [place] 4.2.7.2.686 [place] as Professio [phone] [address] 2020-11-13 2020-11-13 Outpatient Hany [facility] [id number] Univers 13:17:58 23:59:00 [facility] 2020-11-13 2020-11-13 [facility] 1.2.840.114 [id number] Univers 13:17:58 23:59:00 Encounter Jefferson [facility] 350.1.13.10 ity of [place] 4.2.7.2.686 [facility] [phone] [facility] [address] [place] 2020-11-13 2020-11-13 [facility] 1.2.840.114 [id number] Univers 13:17:10 23:59:00 Encounter Jefferson [facility] 350.1.13.10 ity of [place] 4.2.7.2.686 [facility] [phone] [facility] [address] 2020-11-13 2020-11-13 Outpatient R [facility] [id number] Univers 00:00:00 00:00:00 [facility] 2020-11-13 2020-11-13 Orders Doctor MATHEWS 1.2.840.114 [id number] Univers 00:00:00 00:00:00 Only Unassigned, BRYAN 350.1.13.10 ity of [place] [facility] 4.2.7.2.686 Sarkis as [phone] [address] 2020-11-06 2020-11-06 Refprabhjot [facility] 1.2.840.114 [id number] Univers 00:00:00 00:00:00 [facility] 350.1.13.10 it y of [place] 4.2.7.2.686 Sark[place] as Professio [phone] In dicnv nal [address] [place] [address] Office Building One 2020-10-24 2020-10-24 [facility] 1.2.840.114 [id number] Univers 13:10:01 13:25:01 Visit [facility] 350.1.13.10 it y of [place] 4.2.7.2.686 [place] as Professio [phone] [facility] nal [address] [place] [address] Office [facility] One 2020-10-24 2020-10-24 [facility] [id number] Univers 13:15:00 13:15:00 JEFFERSON ity of [facility] 2020-10-24 2020-10-24 Orders Doctor BISI 1.2.840.114 [id number] Univers 00:00:00 00:00:00 Only Unassigned, BRYAN 350.1.13.10 ity of [place] [facility] 4.2.7.2.686 [place] as [phone] [address] 2020-10-09 2020-10-09 [facility] 1.2.840.114 [id number] Univers 00:00:00 00:00:00 [facility] 350.1.13.10 it y of [place] 4.2.7.2.686 [place] as Professio [phone] In dical nal [address] [place] [address] Office [facility] One 2020-10-09 2020-10-09 Refprabhjot [facility] 1.2.840.114 [id number] Univers 00:00:00 00:00:00 [facility] 350.1.13.10 it y of [place] 4.2.7.2.686 [place] as Professio [phone] In dical nal [address] [place] [address] Office Building One 2020-10-03 2020-10-03 Office [facility] 1.2.840.114 [id number] Univers 12:26:09 12:41:09 Visit [facility] 350.1.13.10 it y of [place] 4.2.7.2.686 [place] as Professio [phone] In dical nal 044 [facility] One 2020-10-03 2020-10-03 Outpatient [facility] [id number] Univers 12:15:00 12:15:00 JEFFERSON iraida [facility] 2020-09-28 2020-09-28 Office [facility] 1.2.913.196 [id number] Univers 13:21:27 14:42:31 Visit Giovany Taylor Mirna 350.1.13.10 i ty [place].2.7.2.[place] [phone] [facility] 220 [facility] 2020-09-28 2020-09-28 Outpatient R [facility] [id number] Univers 13:30:00 13:30:00 GIOVANY joaniraida [facility] 2020-09-24 2020-09-24 Refprabhjot [facility] 1.2.840.114 [id number] Univers 00:00:00 00:00:00 [facility] 350.1.13.10 it y of [place] 4.2.7.2.686 [place] as Professio [phone] [facility] 044 [facility] One 2020-09-20 2020-09-20 Emergency X [facility] ERT [id number] Univers 11:53:00 12:28:00 JAYASHREE copeland [facility] 2020-09-20 2020-09-20 Emergency [facility] 1.2.840.114 [id number] Univers 11:53:00 12:28:00 Jayashree Bradley 350.1.13.10 ity [facility] 4.2.7.2.686 [place] [phone] [facility] [address] [place] 2020-09-19 2020-09-19 Refprabhjot [facility] 1.2.840.114 [id number] Univers 00:00:00 00:00:00 [facility] 350.1.13.10 it y of [place] 4.2.7.2.686 [place] Professio [phone] In dical nal 044 [facility] One 2020-09-14 2020-09-14 Viktoriya [facility] 1.2.840.114 [id number] 25 Univers 00:00:00 00:00:00 [facility] 350.1.13.10 it y of [place] 4.2.7.2.686 [place] as Professio [phone] In dical nal 044 [facility] One 2020-09-13 2020-09-13 [facility] 1.2.840.114 [id number] Univers 00:00:00 00:00:00 [facility] 350.1.13.10 it y of [place] 4.2.7.2.686 [place] as Professio [phone] [facility] nal 044 [facility] One 2020-09-06 2020-09-06 Outpatient R DOMINGO [facility] [id number] Univers 13:30:00 13:40:37 JORGE LUIS [facility] 2020-09-06 2020-09-06 Outpatient R DOMINGO [facility] [id number] Univers 13:30:00 13:30:00 [facility] 2020-08-31 2020-08-31 Office [facility] 1.2.840.114 [id number] Univers 10:35:13 11:37:50 Visit Bisi Bradley 350.1.13.10 i ty of [place]2.[place].2.[place] [phone] [facility] 188 [facility] 2020-08-31 2020-08-31 Outpatient Hany CARDOSO [facility] [id number] Univers 11:00:00 11:00:00 BISI iraida [facility] 2020-08-29 2020-08-29 Telephone [facility] 1.2.840.114 [id number] Univers 00:00:00 00:00:00 Giovany Bradley 350.1.13.10 i ty of [place].7.2.[place] [phone] In dical nal [address] Building 2020-08-27 2020-08-27 Viktoriya Witt [facility] 1.2.840.114 [id number] 26 Univers 00:00:00 00:00:00 [facility] 350.1.13.10 it y of [place] 4.2.7.2.686 [place] Professio [phone] In dical nal [address] Office Building One 2020-08-21 2020-08-21 Nurse Guy MATHEWS 1.2.840.114 [id number] Univers 00:00:00 00:00:00 Triage BRYAN Mcclellan 350.1.13.10 ity of [facility] 4.2.7.2.686 [place] as [phone] [facility] [address] 2020-08-17 2020-08-17 Hospital Janae [facility] 1.2.840.114 [id number] Univers 07:37:00 11:47:00 Encounter Bisi Bradley 350.1.13.10 ity of [place] 4.2.7.2.686 [place] [phone] [facility] [address] 2020-08-16 2020-08-16 Laboratory Only, Adc Test [facility] 1.2.840. 114 [id number] Univers 14:00:33 14:15:33 Only Bisi Cardoso 350.1.13 .10 ity of [place] 4.2.7.2.686 [place] [phone] [facility] [address] 2020-08-16 2020-08-16 Outpatient R JANAE [facility] [id number] Univers 14:00:00 14:00:00 BISI copeland of [facility] 2020-08-16 2020-08-16 Orders Doctor BISI 1.2.840.114 [id number] Univers 00:00:00 00:00:00 Only UnassignedBRYAN 350.1.13.10 ity of [place] [facility] 4.2.7.2.686 [place] as [phone] [facility] [address] 2020-08-14 2020-08-14 Telephone Elina [facility] 1.2.840.114 [id number] Univers 00:00:00 00:00:00 Giovany Taylor MIKHAIL 350.1.13.10 ity of [place].2.7.2.686 [place] C[place] [phone] [address] [facility] 2020-08-09 2020-08-09 Outpatient Hany DOMINGO [facility] [id number] Univers 15:20:00 15:20:00 JORGE LUIS ity [facility] 2020-08-09 2020-08-09 Outpatient R DOMINGO [facility] [id number] Univers 15:20:00 15:09:53 [facility] 2020-08-08 2020-08-08 Telephone [facility] 1.2.288.244 [id number] Univers 00:00:00 00:00:00 [facility] 350.1.13.10 it y of [place] 4.2.7.2.686 [place] as Professio [phone] In dical nal [address] [place] [address] One 2020-08-06 2020-08-06 Refill [facility] 1.2.840.114 [id number] Univers 00:00:00 00:00:00 [facility] 350.1.13.10 it y of [place] 4.2.7.2.686 [place] Professio [phone] In dical nal 044 [facility] One 2020-08-06 2020-08-06 Telephone [facility] 1.2.811.973 [id number] Univers 00:00:00 00:00:00 Jefferson Bradley 350.1.13.10 i ty of [place] 4.2.7.2.[place] [phone] In dical nal 044 [facility] 2020-07-30 2020-07-30 Chinchilla Machine Operator 2, Adc Lab [facility] 1.2.840.114 [id number] Univers 10:00:24 10:15:24 Visit Jefferson Witt 350.1.13.10 ity of [place] 4.2.7.2.686 [place] [phone] Me dical nal 353 [facility] 2020-07-30 2020-07-30 Outpatient R EDUAR [facility] [id number] Univers 10:15:00 10:15:00 JEFFERSON ity [facility] 2020-07-30 2020-07-30 Laboratory Pc, Adc Echo Room 1 - [facility] 1 .2.840.114 [id number] Univers 08:18:05 09:18:05 Only Robbie Coronado [place] 350.1.13.10 ity of [place] 4.2.7.2.686 [place] [phone] [facility] 059 [facility] 2020-07-30 2020-07-30 Nurse Visit, Adc Nurse [facility] 1.2.840.1 14 [id number] Univers 08:17:07 08:47:07 Visit Cliff Robbie [place] 350.1.13.10 ity of [place] 4.2.7.2.686 [place] [phone] [facility] 059 [facility] 2020-07-30 2020-07-30 Outpatient R [facility] [id number] Univers 08:30:00 08:30:00 ity of [facility] 2020-07-30 2020-07-30 Refprabhjot [facility] 1.2.840.114 [id number] Univers 00:00:00 00:00:00 [facility] 350.1.13.10 it y of [place] 4.2.7.2.686 [place] Professio [phone] [facility] 044 [facility] 2020-07-24 2020-07-24 Telephone [facility] 1.2.455.639 [id number] Univers 00:00:00 00:00:00 [facility] 350.1.13.10 it y of [place] 4.2.7.2.686 [place] Professio [phone] [facility] 044 [facility] 2020-07-23 2020-07-23 Refprabhjot [facility] 1.2.840.114 [id number] Univers 00:00:00 00:00:00 [facility] 350.1.13.10 it y of [place] 4.2.7.2.686 [place] Professio [phone] In dical nal [address] [place] Office [facility] One 2020-07-20 2020-07-20 Outpatient R JANAE [facility] [id number] Univers 09:45:00 10:34:29 BISI itiraida [facility] 2020-07-20 2020-07-20 Office Janae [facility] 1.2.840.114 [id number] Univers 09:34:36 10:34:29 Visit Bisi Bradley 350.1.13.10 i ty of [place] 4.2.7.2.[place] [phone] In dical nal 188 [facility] 2020-07-20 2020-07-20 Outpatient R JANAE [facility] [id number] Univers 09:45:00 09:45:00 BISI itiraida [facility] 2020-07-20 2020-07-20 Prep For Praveena [facility] 1.2.840.114 [id number] Univers 00:00:00 00:00:00 Surgery Sandy Bradley 350.1.13.10 ity of [place] 4.2.7.2.686 [place] [phone] In dical nal 204 [facility] 2020-07-19 2020-07-19 Telephone Praveena [facility] 1.2.695.970 [id number] Univers 00:00:00 00:00:00 Sandy Bradley 350.1.13.10 ity of [place] 4.2.7.2.[place] [phone] In dical nal 204 [facility] 2020-07-11 2020-07-11 Outpatient R PRAVEENA [facility] [id number] Univers 14:15:00 15:24:26 SANDYMERCED copeland [facility] 2020-07-11 2020-07-11 Office [facility] 1.2.840.114 [id number] Univers 14:07:33 15:24:26 Visit Sandy Bradley 350.1.13.10 ity of [place] 4.2.7.2.[place] [phone] In dical nal 204 [facility] 2020-07-11 2020-07-11 Chinchilla Machine Operator Lab, Adc Fam Pob I [facility] 1.2. 840.114 [id number] Univers 12:22:19 12:42:19 Visit Jefferson Witt 350.1.13.10 ity of [place] 4.2.7.2.686 [place] Professio [phone] [address] Office [facility] One 2020-07-11 2020-07-11 Office Eduar [facility] 1.2.840.114 [id number] Univers 11:51:24 12:15:39 Visit Jefferson Evans 350.1.13.10 it y of [place] 4.2.7.2.686 [place] Professio [phone] [address] Office [facility] 2020-07-11 2020-07-11 Outpatient R EDUAR [facility] [id number] Univers 12:00:00 12:00:00 JEFFERSON copeland [facility] 2020-07-04 2020-07-04 Telephone [facility] 1.2.338.975 [id number] Univers 00:00:00 00:00:00 [facility] 350.1.13.10 it y of [place] 4.2.7.2.686 [place] Professio [phone] [address] Office [facility] 2020-06-27 2020-06-27 Hospital [facility] 1.2.840.114 [id number] Univers 13:09:36 23:59:00 Encounter Rosette Ulices Bradley 350.1.13.10 ity of [place] 4.2.7.2.686 [place] [phone] [address] 2020-06-27 2020-06-27 Chinchilla Machine Operator Lab, Adc [facility] Pob I [facility] 1.2. 840.114 [id number] Univers 11:31:39 11:51:39 Visit Rosette Contreras Nathan 350.1.13.10 ity of [place] 4.2.7.2.686 [place] Professio [phone] [address] Office [facility] 2020-06-27 2020-06-27 Outpatient R BEN [facility] [id number] Univers 11:40:00 11:43:32 ROSETTE copeland [facility] 2020-06-27 2020-06-27 Urgent Provider, [facility] 1.2.840.114 [id number] Univers 10:46:55 11:43:03 [facility] 350.1.13.10 ity of [place] 4.2.7.2.686 [place] Professio [phone] [address] Office [facility] One 2020-06-27 2020-06-27 Outpatient R GORDON [facility] [id number] Univers 11:00:00 11:00:00 JOSSE ity [facility] 2020-06-26 2020-06-26 Telephone [facility] 1.2.374.083 [id number] Univers 00:00:00 00:00:00 [facility] 350.1.13.10 it y of [place] 4.2.7.2.686 [place] Professio [phone] [address] Office [facility] One 2020-06-22 2020-06-22 Refprabhjot [facility] 1.2.840.114 [id number] Univers 00:00:00 00:00:00 [facility] 350.1.13.10 it y of [place] 4.2.7.2.686 [place] Professio [phone] [address] Office [facility] One 2020-06-21 2020-06-21 Telephone [facility] 1.2.122.285 [id number] Univers 00:00:00 00:00:00 [facility] 350.1.13.10 it y of [place] 4.2.7.2.686 [place] Professio [phone] [address] Office [facility] One 2020-06-19 2020-06-19 Refprabhjot [facility] 1.2.840.114 [id number] Univers 00:00:00 00:00:00 [facility] 350.1.13.10 it y of [place] 4.2.7.2.686 [place] Professio [phone] [address] Office [facility] One 2020-06-19 2020-06-19 Refprabhjot [facility] 1.2.840.114 [id number] Univers 00:00:00 00:00:00 [facility] 350.1.13.10 it y of [place] 4.2.7.2.686 [place] Professio [phone] [facility] 044 [facility] 2020-06-13 2020-06-13 Refill [facility] 1.2.840.114 [id number] Univers 00:00:00 00:00:00 [facility] 350.1.13.10 it y of [place] 4.2.7.2.686 [place] Professio [phone] [address] 2020-06-04 2020-06-04 Telephone [facility] 1.2.840.114 [id number] Univers 00:00:00 00:00:00 Giovany [place] 350.1.13.10 i ty of [place] 4.2.7.2.[place] [phone] [facility] 220 [facility] 2020-06-01 2020-06-01 [facility] 1.2.669.491 [id number] Univers 00:00:00 00:00:00 [facility] 350.1.13.10 it y of [place] 4.2.7.2.686 [place] Professio [phone] [address] 2020-05-29 2020-05-29 Outpatient [facility] [id number] Univers 09:00:00 09:00:00 JEFFERSON ity [facility] 2020-05-29 2020-05-29 Telemedici [facility] 1.2.840.114 [id number] Univers 06:53:27 07:08:27 ne Visit [facility] 350.1.13.10 i ty of [place] 4.2.7.2.686 [place] Professio [phone] [address] 2020-05-29 2020-05-29 Refill [facility] 1.2.793.363 [id number] Univers 00:00:00 00:00:00 Giovany [place] 350.1.13.10 i ty of [place] 4.2.7.2.[place] [phone] [facility] 220 [facility] 2020-05-21 2020-05-21 Telephone [facility] [id number] Univers 00:00:00 00:00:00 [facility] [id number] it y of [place] [id number] [place] Professio [phone] [address] Office [facility] 2020-05-16 2020-05-16 [facility] [id number] Univers 00:00:00 00:00:00 [facility] [id number] it y of [place] [id number] [place] [phone] [facility] nal [address] [place] [address] 2020-05-14 2020-05-14 [facility] [id number] Univers 00:00:00 00:00:00 [facility] [id number] it y of [place] [id number] [place] [phone] [address] 2020-05-11 2020-05-11 Telephone [facility] [id number] [id number] Univers 00:00:00 00:00:00 [facility] [id number] it y [place] [id number] [place] [facility] [phone] [address] 2020-05-11 2020-05-11 Telephone [facility] [id number] [id number] Univers 00:00:00 00:00:00 Giovany Taylor [place] 350.1.13.10 [place] 4[place]7.2.[place] [phone] [address] 2020-05-08 2020-05-08 Outpatient R [facility] [id number] Univers 08:45:00 08:45:00 JEFFERSON copeland [facility] 2020-05-08 2020-05-08 Telemedici [facility] 1.2.840.114 [id number] Univers 07:57:55 08:12:55 ne Visit [facility] 350.1.13.10 i ty of [place] 4.2.7.2.686 [place] as Professio [phone] [address] 2020-05-08 2020-05-08 Telephone [facility] 1.2.355.131 [id number] [id number] Univers 00:00:00 00:00:00 [facility] 350.1.13.10 it y of [place] 4.2.7.2.686 [place] Professio [phone] [address] 2020-05-08 2020-05-08 [place] [facility] 1.2.476.171 [id number] [id number] Univers 00:00:00 00:00:00 [facility] [place] 350.1.13.10 i ty [place] [phone] [address] 2020-05-02 2020-05-02 [place] [facility] 1.2.518.879 [id number] [id number] Univers 00:00:00 00:00:00 [facility] 350.1.13.10 it y of [place] 4.2.7.2.686 [place] Professio [phone] [address] 2020-04-24 2020-04-24 Outpatient [facility] [id number] Univers 09:15:00 09:15:00 JEFFERSON copeland [facility] 2020-04-24 2020-04-24 Telemedici [facility] 1.2.840.114 [id number] Univers 06:51:14 07:06:14 ne Visit [facility] 350.1.13.10 i ty of [place] 4.2.7.2.686 [place] Professio [phone] [address] 2020-04-18 2020-04-18 Refill [facility] 1.2.840.114 [id number] Univers 00:00:00 00:00:00 [facility] 350.1.13.10 it y of [place] 4.2.7.2.686 [place] Professio [phone] In dical nal 044 [facility] One 2020-04-13 2020-04-13 Refprabhjot [facility] 1.2.795.086 [id number] Univers 00:00:00 00:00:00 Giovany Bradley 350.1.13.10 i ty of [place] [phone] In dical nal 220 [facility] 2020-04-11 2020-04-11 Outpatient [facility] [id number] Univers 13:00:00 13:00:00 JEFFERSON copeland [facility] 2020-04-11 2020-04-11 Office [facility] 1.2.840.114 [id number] Univers 12:43:12 12:58:12 Visit [facility] 350.1.13.10 it y of [place] 4.2.7.2.686 [place] Professio [phone] In dical nal 044 [place] Office [facility] One 2020-04-08 2020-04-08 Refprabhjot [facility] 1.2.840.114 [id number] Univers 00:00:00 00:00:00 [facility] 350.1.13.10 it y of [place] 4.2.7.2.686 [place] Professio [phone] In dical nal 044 [facility] 2020-04-04 2020-04-04 Office Ivan [facility] 1.2.789.844 [id number] Univers 13:45:29 14:43:26 Visit [facility] 350.1.13.10 it y of Surgical 4.2.7.2.686 [place] Specialti [phone] In dical es 198 [facility] 2020-04-04 2020-04-04 Outpatient R [facility] [id number] Univers 14:00:00 14:00:00 DILAN copeland [facility] 2020-04-02 2020-04-02 Refprabhjot [facility] 1.2.840.114 [id number] Univers 00:00:00 00:00:00 [facility] 350.1.13.10 it y of [place] 4.2.7.2.686 [place] Professio [phone] [facility] 044 [facility] 2020-04-01 2020-04-01 Nurse Sunny MATHEWS 1.2.840.114 [id number] Univers 00:00:00 00:00:00 Triage d, Alana Aki BRYAN 350.1.13.10 ity of HOSPITAL 4.2.7.2.686 [place] as [phone] [address] 2020-04-01 2020-04-01 Telephone Ketty Sanders 1.2.840.114 [id number] Univers 00:00:00 00:00:00 Souviki Torres 350.1.13.10 it y of [facility] 4.2.7.2.686 [place] as [phone] [address] 2020-03-28 2020-03-28 Outpatient R [facility] [id number] Univers 14:15:00 14:15:00 [facility] 2020-03-24 2020-03-24 Refprabhjot [facility] 1.2.840.114 [id number] Univers 00:00:00 00:00:00 [facility] 350.1.13.10 it y of [place] 4.2.7.2.686 [place] Professio [phone] [facility] 044 [facility] 2020-03-23 2020-03-23 Office [facility] 1.2.042.550 [id number] Univers 13:17:14 14:30:58 Visit Giovany Bradley 350.1.13.10 i ty of [place] [phone] [facility] 220 [facility] 2020-03-23 2020-03-23 Outpatient R [facility] [id number] Univers 13:30:00 13:30:00 GIOVANY copeland [facility] 2020-03-23 2020-03-23 Orders Doctor MATHEWS 1.2.840.114 [id number] Univers 00:00:00 00:00:00 Only Unassigned, BRYAN 350.1.13.10 ity of [place] [facility] 4.2.7.2.686 [place] as [phone] [address] 2020-03-20 2020-03-20 Outpatient R MARIANN [facility] [id number] Univers 14:45:00 14:45:00 NOEMI ity of [facility] 2020-03-19 2020-03-[address] [facility] 1.2.840.114 [id number] Univers 00:00:00 00:00:00 Giovany Bradley 350.1.13.10 i ty of [place] [phone] [facility] 220 [facility] 2020-03-19 2020-03-19 [facility] 1.2.840.114 [id number] Univers 00:00:00 00:00:00 [facility] 350.1.13.10 it y of [place] 4.2.7.2.686 [place] Professio [phone] [facility] 044 [place] Office [facility] 2020-03-16 2020-03-16 Refill [facility] 1.2.290.177 [id number] 1224 Univers 00:00:00 00:00:00 Giovany Bradley 350.1.13.10 i ty of [place] [phone] [facility] 220 [facility] 2020-03-15 2020-03-15 Telephone [facility] 1.2.911.951 [id number] Univers 00:00:00 00:00:00 [facility] 350.1.13.10 it y of [place] 4.2.7.2.686 [place] Professio [phone] [address] Office [facility] 2020-03-13 2020-03-13 Outpatient R [facility] [id number] Univers 10:25:12 23:59:00 JOSSE francoy of [facility] 2020-03-13 2020-03-13 [facility] 1.2.840.114 [id number] Univers 10:25:12 23:59:00 Encounter Josse Bradley 350.1.13.10 ity of [place].2.[place] [phone] [facility] [address] 2020-03-13 2020-03-13 Urgent Provider, [facility] 1.2.840.114 [id number] Univers 09:37:13 09:57:13 Care Josse Leyva 350.1.13.10 ity of [place] 4.2.7.2.686 [place] Professio [phone] [facility] 044 [place] Office [facility] One 2020-03-13 2020-03-13 Outpatient R [facility] [id number] Univers 09:40:00 09:40:00 ity of [facility] 2020-03-09 2020-03-09 Telephone [facility] 1.2.556.813 [id number] Univers 00:00:00 00:00:00 [facility] 350.1.13.10 i ty of [place] [phone] In dic[address] 2020-03-07 2020-03-07 Telephone [facility] 1.2.840.114 [id number] Univers 00:00:00 00:00:00 Giovany Bradley 350.1.13.10 i ty of [place] [phone] [facility] 220 [facility] 2020-03-03 2020-03-03 Refill [facility] 1.2.840.114 [id number] Univers 00:00:00 00:00:00 [facility] 350.1.13.10 it y of [place] 4.2.7.2.686 [place] Professio [phone] In dical [address] Office [facility] 2020-03-02 2020-03-[address] [facility] 1.2.840.114 [id number] Univers 00:00:00 00:00:00 Giovany Bradley 350.1.13.10 i ty of [place] [phone] In [facility]portneuf [facility] 220 [facility] 2020-02-29 2020-02-29 [facility] 1.2.840.114 [id number] Univers 00:00:00 00:00:00 [facility] 350.1.13.10 it y of [place] 4.2.7.2.686 [place] Professio [phone] In dical nal 044 [facility] 2020-02-28 2020-02-28 [facility] 1.2.840.114 [id number] Univers 00:00:00 00:00:00 [facility] 350.1.13.10 it y of [place] 4.2.7.2.686 [place] Professio [phone] In dical nal 044 [facility] 2020-02-28 2020-02-[address] [facility] 1.2.840.114 [id number] Univers 00:00:00 00:00:00 Giovany H [place] 350.1.13.10 i ty of [place] [phone] In dical nal 220 [facility] 2020-02-27 2020-02-27 [facility] 1.2.840.114 [id number] Univers 00:00:00 00:00:00 [facility] 350.1.13.10 it y of [place] 4.2.7.2.686 [place] Professio [phone] In dical nal 044 [facility] 2020-02-23 2020-02-[address] [facility] 1.2.840.114 [id number] Univers 00:00:00 00:00:00 Giovany H [place] 350.1.13.10 i ty of [place].2.[place].2.[place] [phone] In dical nal 220 [facility] 2020-02-21 2020-02-[address] [facility] 1.2.840.114 [id number] Univers 00:00:00 00:00:00 Giovany H [place] 350.1.13.10 i ty of [place].2.7.2.[place] [phone] In dical nal 220 [facility] 2020-02-20 2020-02-20 Viktoriya [facility] 1.2.840.114 [id number] Univers 00:00:00 00:00:00 [facility] 350.1.13.10 it y of [place] 4.2.7.2.686 [place] Professio [phone] In dicnv nal 044 [facility] 2020-02-14 2020-02-14 Telephone [facility] 1.2.604.040 [id number] [id number] Univers 00:00:00 00:00:00 Jefferson Bradley 350.1.13.10 i ty of [place].2.7.2.[place] [phone] [facility] nal [address] [place] [address] 2020-02-10 2020-02-10 Viktoriya [facility] 1.2.840.114 [id number] Univers 00:00:00 00:00:00 [facility] 350.1.13.10 it y of [place] 4.2.7.2.686 [place] Professio [phone] [facility] 2020-02-08 2020-02-08 Viktoriya [facility] 1.2.840.114 [id number] Univers 00:00:00 00:00:00 Jefferson Bradley 350.1.13.10 i ty of [place] 4.2.7.2.[place] [phone] In dicnv nal [address] [place] [address] 2020-02-02 2020-02-02 Viktoriya [facility] 1.2.840.114 [id number] Univers 00:00:00 00:00:00 [facility] 350.1.13.10 it y of [place] 4.2.7.2.686 [place] Professio [phone] [facility] nal [address] [place] [address] 2020-02-02 2020-02-02 Telephone [facility] 1.2.840.114 [id number] Univers 00:00:00 00:00:00 Giovany Bradley 350.1.13.10 i ty of [place] 4.2.7.2.[place] [phone] Me dical nal 220 [facility] 2020-01-31 2020-01-31 [facility] 1.2.840.114 [id number] Univers 00:00:00 00:00:00 [facility] 350.1.13.10 it y of [place] 4.2.7.2.686 [place] Professio [phone] In dicnv nal [address] [place] [address] Office [facility] 2020-01-26 2020-01-26 [facility] 1.2.852.938 [id number] Univers 00:00:00 00:00:00 Giovany Bradley 350.1.13.10 i ty of [place].2.[place] [phone] [facility] nal [address] [place] [address] 2020-01-24 2020-01-24 [facility] 1.2.840.114 [id number] Univers 00:00:00 00:00:00 [facility] 350.1.13.10 it y of [place] 4.2.7.2.686 [place] Professio [phone] [facility] nal [address] [place] [address] 2020-01-23 2020-01-23 Telephone [facility] 1.2.840.114 [id number] Univers 00:00:00 00:00:00 Giovany Bradley 350.1.13.10 i ty of [place].2.7.2.[place] [phone] [address] 2020-01-18 2020-01-18 [facility] 1.2.840.114 [id number] Univers 00:00:00 00:00:00 [facility] 350.1.13.10 it y of [place] 4.2.7.2.686 [place] Professio [phone] [facility] [address] [place] [address] Office [facility] 2020-01-09 2020-01-09 Office [facility] 1.2.840.114 [id number] Univers 11:54:37 12:09:37 Visit Jefferson Bradley 350.1.13.10 i ty of [place].2.7.2.[place] [phone] In dical nal 044 [facility] 2020-01-09 2020-01-09 Outpatient R EDUAR [facility] [id number] Univers 12:00:00 12:00:00 JEFFERSON copeland [facility] 2019-12-30 2019-12-30 Telephone Eduar [facility] 1.2.286.404 [id number] Univers 00:00:00 00:00:00 [facility] 350.1.13.10 it y of [place] 4.2.7.2.686 [place] Professio [phone] In dical nal 044 [place] Office [facility] One 2019-12-29 2019-12-29 Telephone [facility] 1.2.601.066 [id number] Univers 00:00:00 00:00:00 [facility] 350.1.13.10 it y of [place] 4.2.7.2.686 [place] Professio [phone] In dical nal 044 [place] Office [facility] 2019-12-27 2019-12-27 Telephone [facility] 1.2.840.114 [id number] Univers 00:00:00 00:00:00 Giovany Claudia [place] 350.1.13.10 i ty [place].2.[place].2.[place] [phone] In dical nal 220 [facility] 2019-12-27 2019-12-27 Refprabhjot [facility] 1.2.840.114 [id number] Univers 00:00:00 00:00:00 [facility] 350.1.13.10 it y of [place] 4.2.7.2.686 [place] Professio [phone] In dical nal 044 [place] Office [facility] One 2019-12-20 2019-12-20 Refprabhjot [facility] 1.2.840.114 [id number] Univers 00:00:00 00:00:00 [facility] 350.1.13.10 it y of [place] 4.2.7.2.686 [place] Professio [phone] In dical nal 044 [place] Office [facility] One 2019-12-15 2019-12-19 Urgent Provider, [facility] 1.2.840.114 [id number] Univers 10:46:49 09:53:57 Josse [facility] 350.1.13.10 ity of [place] 4.2.7.2.686 [place] Professio [phone] In ashley [address] One 2019-12-19 2019-12-19 Juan Leyva [facility] 1.2.927.245 [id number] Univers 00:00:00 00:00:00 Josse [facility] 350.1.13.10 it y of [place] 4.2.7.2.686 [place] Professio [phone] [address] One 2019-12-16 2019-12-16 Viktoriya Roldaners [facility] 1.2.840.114 [id number] Univers 00:00:00 00:00:00 [facility] 350.1.13.10 it y of [place] 4.2.7.2.686 [place] Professio [phone] [address] One 2019-12-16 2019-12-16 Viktoriya Witt [facility] 1.2.840.114 [id number] Univers 00:00:00 00:00:00 [facility] 350.1.13.10 it y of [place] 4.2.7.2.686 [place] Professio [phone] [address] 2019-12-15 2019-12-15 Outpatient R [facility] [id number] Univers 11:00:00 11:00:00 ity of [facility] 2019-12-13 2019-12-13 Outpatient R [facility] [id number] Univers 09:40:00 09:40:00 ity of [facility] 2019-12-08 2019-12-08 Viktoriya [facility] 1.2.840.114 [id number] Univers 00:00:00 00:00:00 [facility] 350.1.13.10 it y of [place] 4.2.7.2.686 [place] Professio [phone] [address] One 2019-12-01 2019-12-01 Viktoriya [facility] 1.2.840.114 [id number] Univers 00:00:00 00:00:00 [facility] 350.1.13.10 it y of [place] 4.2.7.2.686 [place] Professio [phone] In dical nal [address] [place] [address] 2019-11-30 2019-11-30 Refprabhjot [facility] 1.2.840.114 [id number] Univers 00:00:00 00:00:00 Jefferson Bradley 350.1.13.10 i ty of [place].2.[place] [phone] In dical nal [address] [place] [address] 2019-11-29 2019-11-29 Telephone Pob1, Acute [facility] 1.2.840.114 [id number] Univers 00:00:00 00:00:00 [facility] 350.1.13.10 ity of [place] 4.2.7.2.686 [place] Professio [phone] [facility] nal [address] [place] [address] 2019-11-28 2019-11-28 Refill [facility] 1.2.840.114 [id number] Univers 00:00:00 00:00:00 [facility] 350.1.13.10 it y of [place] 4.2.7.2.686 [place] Professio [phone] [facility] nal [address] [place] [address] 2019-11-25 2019-11-25 Chinchilla Machine Operator 2, Adc Lab [facility] 1.2.840.114 [id number] Univers 08:03:12 08:18:12 Visit Eduar Jefferson Bradley 350.1.13.10 ity [place] [phone] [address] 2019-11-25 2019-11-25 Outpatient R EDUAR [facility] [id number] Univers 08:00:00 08:00:00 JEFFERSON min [facility] 2019-11-25 2019-11-25 Telephone [facility] 1.2.770.193 [id number] Univers 00:00:00 00:00:00 [facility] 350.1.13.10 it y of [place] 4.2.7.2.686 [place] Professio [phone] [address] Office [facility] 2019-11-24 2019-11-24 [facility]phone [facility] 1.2.840.114 [id number] Univers 00:00:00 00:00:00 Keila Bradley 350.1.13.10 i ty [place] [phone] [address] 2019-11-24 2019-11-24 Telephone [facility] 1.2.411.522 [id number] Univers 00:00:00 00:00:00 Rosette [facility] 350.1.13.10 i ty of [place] 4.2.7.2.686 [place] Professio [phone] [address] 2019-11-23 2019-11-23 Outpatient R [facility] [id number] Univers 15:29:34 23:59:00 KEILA copeland [facility] 2019-11-23 2019-11-23 [facility] 1.2.840.114 [id number] Univers 15:15:00 23:59:00 Encounter Keila Bradley 350.1.13.10 ity of [place] [phone] [address] 2019-11-23 2019-11-23 Urgent Pob1, Acute Care Clinic [facility] 1. 2.840.114 [id number] Univers 14:33:27 14:53:27 Care MikahannahKeila cunningham [facility] 350.1.13.10 ity of [place] 4.2.7.2.686 [place] Professio [phone] [address] Office [facility] 2019-11-23 2019-11-23 Outpatient R [facility] [id number] Univers 14:40:00 14:40:00 ity [facility] 2019-11-23 2019-11-23 Viktoriya [facility] 1.2.840.114 [id number] Univers 00:00:00 00:00:00 [facility] 350.1.13.10 it y of [place] 4.2.7.2.686 [place] Professio [phone] In dical nal 044 [facility] 2019-11-23 2019-11-23 Refill MikaalonzoshellyG[facility]UP [facility] 1.2.840.114 [id number] Univers 00:00:00 00:00:00 [facility] 350.1.13.10 it y of [place] 4.2.7.2.686 [place] Professio [phone] In dical nal 044 [place] Office [facility] One 2019-11-16 2019-11-16 Telephone [facility] 1.2.840.114 [id number] Univers 00:00:00 00:00:00 Gioavny Taylor [place] 350.1.13.10 [place] [phone] In dical nal 220 [facility] 2019-11-15 2019-11-15 [facility] 1.2.840.114 [id number] Univers 00:00:00 00:00:00 [facility] 350.1.13.10 it y of [place] 4.2.7.2.686 [place] Professio [phone] In dical nal 0[address] [place] Office [facility] 2019-11-10 2019-11-10 [facility] 1.2.840.114 [id number] Univers 08:41:49 08:56:49 Visit Jefferson Bradley 350.1.13.10 i ty of [place].2.[place].2.[place] [phone] In dical nal 044 [facility] 2019-11-10 2019-11-10 Outpatient R EDUAR [facility] [id number] Univers 08:45:00 08:45:00 JEFFERSON copeland [facility] 2019-11-07 2019-11-07 Telephone [facility] 1.2.458.985 [id number] Univers 00:00:00 00:00:00 [facility] 350.1.13.10 it y of [place] 4.2.7.2.686 [place] Professio [phone] In dical nal 044 [place] Office [facility] 2019-11-02 2019-11-02 Refprabhjot [facility] 1.2.840.114 [id number] Univers 00:00:00 00:00:00 [facility] 350.1.13.10 it y of [place] 4.2.7.2.686 [place] Professio [phone] [address] 2019-10-26 2019-10-26 Viktoriya [facility] 1.2.840.114 [id number] Univers 00:00:00 00:00:00 [facility] 350.1.13.10 it y of [place] 4.2.7.2.686 [place] Professio [phone] [address] One 2019-10-24 2019-10-24 Telephone [facility] 1.2.846.129 [id number] Univers 00:00:00 00:00:00 [facility] 350.1.13.10 it y of [place] 4.2.7.2.686 [place] Professio [phone] [address] One 2019-10-21 2019-10-21 [facility] 1.2.692.295 [id number] Univers 00:00:00 00:00:00 Giovany H Mirna 350.1.13.10 i [place] [phone] [address] 2019-10-18 2019-10-18 Outpatient R [facility] [id number] Univers 08:20:00 08:20:00 ity of [facility] 2019-10-14 2019-10-[address] [facility] 1.2.840.114 [id number] Univers 00:00:00 00:00:00 Giovany H [place] 350.1.13.10 i ty [place] [phone] [address] 2019-10-14 2019-10-[address] [facility] 1.2.840.114 [id number] Univers 00:00:00 00:00:00 Giovany H [place] 350.1.13.10 i ty [place].2.[place] [phone] In ashley nal 220 [facility] 2019-10-13 2019-10-13 Telephone [facility] 1.2.735.992 [id number] Univers 00:00:00 00:00:00 [facility] [id number] it y of [place] 4.2.7.2.686 [place] as Professio [phone] In dical nal 044 [facility] 2019-10-12 2019-10-12 [facility]hojt [facility] 1.2.840.114 [id number] Univers 00:00:00 00:00:00 [facility] 350.1.13.10 it y of [place] 4.2.7.2.686 [place] Professio [phone] In dical nal 044 [facility] 2019-10-11 2019-10-11 [facility] [id number] Univers 00:00:00 00:00:00 [facility] 350.1.13.10 it y of [place] 4.2.7.2.686 [place] Professio [phone] [facility] nal 044 [facility] 2019-10-11 2019-10-11 Orders Doctor BISI 1.2.840.114 [id number] Univers 00:00:00 00:00:00 Only Unassigned, BRYAN 350.1.13.10 ity of [place] [facility] 4.2.7.2.686 [place] as [phone] [address] 2019-10-04 2019-10-04 [facility]hjot [facility] 1.2.840.114 [id number] Univers 00:00:00 00:00:00 [facility] 350.1.13.10 it y of [place] 4.2.7.2.686 [place] as Professio [phone] In dical nal 044 [facility] 2019-09-29 2019-09-29 [facility] 1.2.562.256 [id number] Univers 00:00:00 00:00:00 [facility] 350.1.13.10 it y of [place] 4.2.7.2.686 [place] as Professio [phone] In dical nal [address] [place] [address] Office Building One 2019-09-29 2019-09-29 Telephone [facility] 1.2.107.328 [id number] Univers 00:00:00 00:00:00 [facility] 350.1.13.10 it y of [place] 4.2.7.2.686 [place] as Professio [phone] [facility] nal [address] [place] [address] Office Building One 2019-09-28 2019-09-28 [facility] 1.2.840.114 [id number] Univers 00:00:00 00:00:00 [facility] 350.1.13.10 it y of [place] 4.2.7.2.686 [place] Professio [phone] [facility] nal [address] [place] [address] Office [facility] One 2019-09-28 2019-09-28 [place] [facility] 1.2.333.810 [id number] Univers 00:00:00 00:00:00 [facility] 350.1.13.10 it y of [place] 4.2.7.2.686 [place] Professio [phone] [facility] nal [address] [place] [address] Office [facility] One 2019-09-27 2019-09-27 Telephone [facility] [id number] Univers 00:00:00 00:00:00 [facility] 350.1.13.10 it y of [place] 4.2.7.2.686 [place] Professio [phone] [facility] nal [address] [place] [address] Office Building One 2019-09-26 2019-09-26 Office [facility] 1.2.840.114 [id number] Univers 14:15:35 14:45:35 Visit [facility] 350.1.13.10 it y of [place] 4.2.7.2.686 [place] Professio [phone] [facility] nal [address] [place] [address] Office [facility] One 2019-09-26 2019-09-26 Outpatient R EDUAR [facility] [id number] Univers 14:30:00 14:30:00 JEFFERSON copeland of [facility] 2019-09-26 2019-09-26 Orders Doctor MATHEWS 1.2.840.114 [id number] Univers 00:00:00 00:00:00 Only Unassigned, BRYAN 350.1.13.10 ity of [place] [facility] 4.2.7.2.686 Sarkis as [phone] [address] 2019-09-23 2019-09-23 Outpatient R ELINA [facility] [id number] Univers 13:30:00 14:11:38 GIOVANY copeland of [facility] 2019-09-23 2019-09-23 Office [facility] 1.2.477.566 [id number] Univers 13:25:38 14:11:38 Visit Giovany Claudia Mirna 350.1.13.10 i ty [place] [phone] [facility] [address] [facility] 2019-09-23 2019-09-23 Nurse Ciara Alvarez 1.2.840.114 [id number] Univers 00:00:00 00:00:00 Triage BRYAN 350.1.13.10 it y of HOSPITAL 4.2.7.2.686 [place] as [phone] [facility] 0[address] [place] 2019-09-16 2019-09-16 [facility] 1.2.109.021 [id number] Univers 00:00:00 00:00:00 [facility] 350.1.13.10 it y of [place] 4.2.7.2.686 [place] Professio [phone] [facility] 044 [facility] 2019-09-13 2019-09-13 Telephone [facility] 1.2.476.430 [id number] Univers 00:00:00 00:00:00 [facility] 350.1.13.10 it y of [place] 4.2.7.2.686 [place] Professio [phone] [facility] 044 [facility] 2019-09-13 2019-09-13 Orders Doctor MATHEWS 1.2.840.114 [id number] Univers 00:00:00 00:00:00 Only Unassigned, BRYAN 350.1.13.10 ity of [place] [facility] 4.2.7.2.686 Sarkis as [phone] [facility] [address] [place] 2019-09-12 2019-09-12 Vik[facility]ya [facility] 1.2.840.114 [id number] Univers 00:00:00 00:00:00 [facility] 350.1.13.10 it y of [place] 4.2.7.2.686 [place] Professio [phone] [address] Office [facility] One 2019-09-08 2019-09-08 [facility] 1.2.840.114 [id number] Univers 00:00:00 00:00:00 [facility] 350.1.13.10 it y of [place] 4.2.7.2.686 [place] Professio [phone] [address] One 2019-09-05 2019-09-05 [facility]ya [facility] 1.2.840.114 [id number] Univers 00:00:00 00:00:00 [facility] 350.1.13.10 it y of [place] 4.2.7.2.686 [place] Professio [phone] In dicnv nal [address] [place] [address] One 2019-08-25 2019-08-25 [facility] 1.2.840.114 [id number] Univers 00:00:00 00:00:00 [facility] 350.1.13.10 it y of [place] 4.2.7.2.686 [place] Professio [phone] [facility] nal [address] [place] [address] One 2019-08-25 2019-08-25 Vik[facility]oriya [facility] 1.2.840.114 [id number] Univers 00:00:00 00:00:00 [facility] 350.1.13.10 it y of [place] 4.2.7.2.686 [place] Professio [phone] [facility] nal [address] [place] [address] One 2019-08-23 2019-08-23 Viktoriya [facility] 1.2.254.491 [id number] Univers 00:00:00 00:00:00 Giovany [place] 350.1.13.10 i ty [place] [phone] [facility] [address] [facility] 2019-08-17 2019-08-17 Telephone [facility] 1.2.840.114 [id number] Univers 00:00:00 00:00:00 Giovany Taylor Mirna 350.1.13.10 i [place] [phone] [facility] [address] [facility] 2019-08-15 2019-08-15 Refprabhjot [facility] 1.2.840.114 [id number] Univers 00:00:00 00:00:00 [facility] 350.1.13.10 it y of [place] 4.2.7.2.686 [place] Professio [phone] [address] One 2019-08-13 2019-08-13 Refprabhjot [facility] 1.2.840.114 [id number] Univers 00:00:00 00:00:00 [facility] 350.1.13.10 it y of [place] 4.2.7.2.686 [place] Professio [phone] [address] Office [facility] One 2019-04-15 2019-04-15 Refprabhjot [facility] 1.2.840.114 [id number] Univers 00:00:00 00:00:00 [facility] 350.1.13.10 it y of [place] 4.2.7.2.686 [place] Professio [phone] [address] Office [facility] One 2019-04-13 2019-04-13 Office [facility] 1.2.840.114 [id number] Univers 13:52:51 14:14:54 Visit [facility] 350.1.13.10 it y of [place] 4.2.7.2.686 [place] Professio [phone] [address] Office [facility] One 2019-04-13 2019-04-13 Orders Doctor BISI 1.2.840.114 [id number] Univers 00:00:00 00:00:00 Only Unassigned, BRYAN 350.1.13.10 ity of [place] [facility] 4.2.7.2.686 [place] as [phone] [address] 2019-04-07 2019-04-07 [facility] 1.2.840.114 [id number] Univers 00:00:00 00:00:00 [facility] 350.1.13.10 it y of [place] 4.2.7.2.686 [place] Professio [phone] [address] One 2019-04-05 2019-04-[address] [facility] 1.2.840.114 [id number] Univers 00:00:00 00:00:00 Giovany Bradley 350.1.13.10 i ty [place] [phone] [address] 2019-04-05 2019-04-05 [facility] 1.2.840.114 [id number] Univers 00:00:00 00:00:00 [facility] 350.1.13.10 it y of [place] 4.2.7.2.686 [place] Professio [phone] [address] 2019-03-31 2019-03-31 [facility] 1.2.840.114 [id number] Univers 00:00:00 00:00:00 [facility] 350.1.13.10 it y of [place] 4.2.7.2.686 [place] Professio [phone] [address] 2019-03-29 2019-03-[address] [facility] 1.2.840.114 [id number] Univers 00:00:00 00:00:00 Giovany [place] 350.1.13.10 i ty [place] [phone] [address] 2019-03-29 2019-03-29 Orders Doctor MATHEWS 1.2.840.114 [id number] Univers 00:00:00 00:00:00 Only Unassigned, BRYAN 350.1.13.10 ity of [place] [facility] 4.2.7.2.686 [place] as [phone] [address] 2019-03-21 2019-03-21 Telephone [facility] 1.2.840.114 [id number] Univers 00:00:00 00:00:00 Giovany [place] 350.1.13.10 i ty [place] [phone] [facility] [address] [facility] 2019-03-17 2019-03-17 [facility] 1.2.840.114 [id number] Univers 00:00:00 00:00:00 [facility] 350.1.13.10 it y of [place] 4.2.7.2.686 [place] Professio [phone] [facility] 044 [facility] 2019-03-17 2019-03-17 Viktoriya [facility] 1.2.840.114 [id number] Univers 00:00:00 00:00:00 [facility] 350.1.13.10 it y of [place] 4.2.7.2.686 [place] Professio [phone] [facility] 044 [facility] One 2019-03-09 2019-03-09 Viktoriya [facility] 1.2.840.114 [id number] Univers 00:00:00 00:00:00 [facility] 350.1.13.10 it y of [place] 4.2.7.2.686 [place] Professio [phone] [facility] 044 [facility] One 2019-03-03 2019-03-03 Viktoriya [facility] 1.2.840.114 [id number] Univers 00:00:00 00:00:00 [facility] 350.1.13.10 it y of [place] 4.2.7.2.686 [place] Professio [phone] [facility] 044 [facility] One 2019-02-28 2019-02-28 Viktoriya [facility] 1.2.840.114 [id number] Univers 00:00:00 00:00:00 [facility] 350.1.13.10 it y of [place] 4.2.7.2.686 [place] as Profcarleeio [phone] In dical nal 044 [facility] Building One 2018-11-01 2018-11-01 Viktoriya Witt [facility] 1.2.840.114 [id number] Univers 00:00:00 00:00:00 [facility] 350.1.13.10 it y of [place] 4.2.7.2.686 [place] as Professio [phone] In dical nal 044 [facility] One Results Test Description Test Time Test Comments Results Result Comments Source COMP. METABOLIC PANEL ([id number]) 2022-07-19 21:35:09 Test Item Value Reference Range Interpretation Comme nts NA (test code = 9431029136) 139 mmol/L 135-145 K (test code = 1228952369) 4.1 mmol/L 3.5-5.0 CL (test code = 0511934808) 102 mmol/L 98-108 CO2 TOTAL (test code = 8983469178) 29 mmol/L 23-31 AGAP (test code = 7337636843) 2-16 BUN (test code = 8354590887) 12 mg/dL 7-23 GLUCOSE (test code = 5638857380) 236 mg/dL 70-110 H CREATININE (test code = 0.59 mg/dL 0.50-1.04 8364230883) TOTAL BILI (test code = 0.5 mg/dL 0.1-1.6 3573487962) CALCIUM (test code = 5948406659) 8.8 mg/dL 8.6-10.6 T PROTEIN (test code = 5334568659) 7.0 g/dL 6.3-8.2 ALBUMIN (test code = 3441029925) 4.2 g/dL 3.5-5.0 ALK PHOS (test code = 2797516376) 77 U/L 34-122 ALTv (test code = 1742-6) 27 U/L 5-35 AST(SGOT) (test code = 9742021703) 22 U/L 13-40 eGFR (test code = 9552774144) mL/min/1.73m2 DENISHA (test code = DENISHA) Association [...] tests). Lab Interpretation (test code = Abnormal 47978-8) [facility] WITH [id number] 21:11:06 Test Item Value Reference Range Interpretation Comments WBC (test code = See_Comment [Automated 6611-2) message] The sy stem which generated this result transmitted reference range : 4.30 - 11.10 10*3/?L. The reference range was not used to interpret this result as normal/abnormal . RBC (test code = See_Comment [Automated 669-8) message] The sy stem which generated this [...] RDW-SD (test code = 43.3 fL 39.0-49.9 79406-9) RDW-CV (test code = 14.8 % 12.0-15.5 788-0) PLT (test code = See_Comment [Automated 777-3) message] The sy stem which generated this result transmitted reference range : 166 - 358 10*3/ ?L. The reference r victorina was not used to interpret this result as normal/abnormal . MPV (test code = 11.0 fL 9.5-12.9 48924-7) NRBC/100 WBC (test See_Comment [Automat ed code = 4723467619) message] The system which generated this result transmitted reference range : 0.0 - 10.0 /100 WBCs. The refer ence range was not u sed to interpret th is result as normal/abnormal . NRBC x10^3 (test code See_Comment [Auto mated = 4922212314) message] The s ystem which generated this result transmitted reference range : 10*3/?L. The reference range was not used to interpret this result as normal/abnormal . GRAN MAT (NEUT) % 66.5 % (test code = 770-8) IMM GRAN % (test code 0.80 % = 7480909266) LYMPH % (test code = 21.8 % 736-9) MONO % (test code = 7.3 % 5905-5) EOS % (test code = 2.8 % 713-8) BASO % (test code = 0.8 % 706-2) GRAN MAT x10^3(ANC) 7.14 10*3/uL 1.88-7.09 H (test code = 2461551794) IMM GRAN x10^3 (test 0.09 10*3/uL 0.00-0.06 H code = 0626205809) LYMPH x10^3 (test code 2.35 10*3/uL 1.32-3.29 = 731-0) MONO x10^3 (test code 0.79 10*3/uL 0.33-0.92 = 742-7) EOS x10^3 (test code = 0.30 10*3/uL 0.03-0.39 711-2) BASO x10^3 (test code 0.09 10*3/uL 0.01-0.07 H = 704-7) Lab Interpretation Abnormal (test code = 48592-8) [facility] [id number] 16:47:33 Test Item Value Reference Interpretation Comments Range TROPONIN I (test 0.005 ng/mL See_Comment [Automated code = 0753341339) message] The system which generated this result [...] biotin. Lab Interpretation Normal (test code = 21448-6) [facility] HospitalCOMP[facility]OLIC PANEL ([id number])2022-05-29 16:36:15 Test Item Value Reference Range Interpretation Comments NA (test code = 137 mmol/L 135-145 4232927010) K (test code = 4.4 mmol/L 3.5-5.0 0033547213) CL (test code = 100 mmol/L 98-108 6529101779) CO2 TOTAL (test code = 22 mmol/L 23-31 L 3172196254) AGAP (test code = 2-16 3857449374) BUN (test code = 14 mg/dL 7-23 9504485288) GLUCOSE (test code = 190 mg/dL 70-110 H 2910884401) CREATININE (test code = 0.70 mg/dL 0.50-1.04 0662365270) TOTAL BILI (test code = 0.3 mg/dL 0.1-1.8 2235403978) CALCIUM (test code = 9.6 mg/dL 8.6-10.6 2549918034) T PROTEIN (test code = 6.8 g/dL 6.3-8.2 0125003786) ALBUMIN (test code = 4.2 g/dL 3.5-5.0 9399974154) ALK PHOS (test code = 67 U/L 34-122 4213404895) ALTv (test code = 40 U/L 5-35 H 1742-6) AST(SGOT) (test code = 44 U/L 13-40 H 5224373072) eGFR (test code = mL/min/1.73m2 1655705707) DENISHA (test code = DENISHA) Association of [...] tests). Lab Interpretation Abnormal (test code = 17718-0) [facility]IP[facility]2022-10-27 16:35:55 Test Item Value Reference Range Interpretation Comments LIPASE (test code = 3890428794) 85 U/L 0-220 Lab Interpretation (test code = Normal 45893-5) [facility] WITH [id number] 16:18:33 Test Item Value Reference Range Interpretation [...] RDW-SD (test code = 43.2 fL 39.0-49.9 12842-4) RDW-CV (test code = 15.1 % 12.0-15.5 788-0) PLT (test code = See_Comment [Automated 777-3) message] The sy stem which generated this result transmitted reference range : 166 - 358 10*3/ ?L. The reference r victorina was not used to interpret this result as normal/abnormal . MPV (test code = 10.3 fL 9.5-12.9 47329-9) NRBC/100 WBC (test See_Comment [Automat ed code = 6960462278) message] The system which generated this result transmitted reference range : 0.0 - 10.0 /100 WBCs. The refer ence range was not u sed to interpret th is result as normal/abnormal . NRBC x10^3 (test code See_Comment [Auto mated = 4580606430) message] The s ystem which generated this result transmitted reference range : 10*3/?L. The reference range was not used to interpret this result as normal/abnormal . GRAN MAT (NEUT) % 66.7 % (test code = 770-8) IMM GRAN % (test code 0.80 % = 1127411683) LYMPH % (test code = 23.3 % 736-9) MONO % (test code = 5.2 % 5905-5) EOS % (test code = 3.0 % 713-8) BASO % (test code = 1.0 % 706-2) GRAN MAT x10^3(ANC) 6.50 10*3/uL 1.88-7.09 (test code = 8313442746) IMM GRAN x10^3 (test 0.08 10*3/uL 0.00-0.06 H code = 8667432377) LYMPH x10^3 (test code 2.27 10*3/uL 1.32-3.29 = 731-0) MONO x10^3 (test code 0.51 10*3/uL 0.33-0.92 = 742-7) EOS x10^3 (test code = 0.29 10*3/uL 0.03-0.39 711-2) BASO x10^3 (test code 0.10 10*3/uL 0.01-0.07 H = 704-7) Lab Interpretation Abnormal (test code = 93832-2) [facility]EMOGLOB[facility] A1C [id number] 21:18:00 Test Item Value Reference Range Interpretation Comments POCT HBA1C (test code = 4548-4) 7.5 % 4-6 A Lab Interpretation (test code = Abnormal 63696-8) [facility] HEMOGLOBIN A1C [id number] 21:18:00 Test Item Value Reference Range Interpretation Comments POCT HBA1C (test code = 4548-4) 7.5 % 4-6 A Lab Interpretation (test code = Abnormal 03147-5) [facility]
--- NOTE | 2022-08-13 14:41 | RAD REPORT ---
EXAM DESCRIPTION: CT - Head Brain Wo Cont - 08/13/2022 2:26 pm CLINICAL HISTORY: AMS COMPARISON: No comparisons TECHNIQUE: All CT scans are performed using dose optimization technique as appropriate and may inclu de automated exposure control or mA/KV adjustment according to patient size. FINDINGS: No intracranial hemorrhage, hydrocephalus or extra-axial fluid collection.No areas of brai n edema or evidence of midline shift. 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 The paranasal sinuses and mastoids are clear. The calvarium is intact. IMPRESSION: No acute intracranial abnormality. Remote appearing left parietal and left occipital lo be infarcts.
--- NOTE | 2022-08-13 14:43 | RAD REPORT ---
EXAM DESCRIPTION: RAD - Chest Single View - 08/13/2022 2:37 pm CLINICAL HISTORY: AMS COMPARISON: Chest Pa And Lat (2 Views) dated 08/03/2022; Chest Single View dated 07/29/2022; Chest Sin gle View dated 07/26/2022; Chest Single View dated 04/18/2021; Chest For Pe Angio dated 08/03/2022 FINDINGS: Lines: Left subclavian approach PICC with tip overlying the SVC. Lungs: Improved aeration of the lungs with some resolution of edema. Increased lung markings at the l eft lung base is a chronic finding. Pleural: No significant pleural effusions or pneumothorax. Cardiac: Similar size and configuration Mediastinum: Within normal limits. Bones: No acute fractures. Remote left-sided rib fractures. Other: None IMPRESSION: Aeration of the lungs appears improved since 08/03/2022. No acute process identified.
[2022-08-13 15:05] LABS: Absolute Lymphocytes (CBC) 0.9 K/uL (0.7-4.9); Hematocrit 24.9 % (36.0-45.0); Lymphocytes % 12.6 % (15.3-44.8); MPV 8.5 fL (7.6-11.3); RBC Red Blood Cell Count 3.51 M/uL (3.86-4.86)
[2022-08-13 15:11] LABS: Protime INR 1.25
[2022-08-13 15:21] LABS: Albumin 2.1 g/dL (3.4-5.0); Bilirubin Total 0.4 mg/dL (0.2-1.0); Protein, Total 6.8 g/dL (6.4-8.2)
[2022-08-13 15:23] LABS: Potassium 2.5 mmol/L (3.5-5.1)
--- NOTE | 2022-08-13 15:47 | ER ---
Nurse's Notes [facility] Name: Jose Edmond Age: 62 yrs Sex: Female : 1960 Arrival Date: 08/13/2022 Time: 13:53 Bed 15 Private MD: Diagnosis: Altered mental status, unspecified;Osteomyelitis, unspecified-left foot;COPD/ Chronic obstructive pulmonary disease with (acute) exacerbation Presentation: 08/13 13:53 Chief complaint: EMS states: Sent by Dr. Ann for further evaluation and treatment of ss foot wound which is being treated by Dr. Ledesma. Pt c/o increased lethargy since yesterday. Coronavirus screen: Client denies travel out of the [place] in the last 14 days. Ebola Screen: Patient denies exposure to infectious person. Patient denies travel to an Ebola-affected area in the 21 days before illness onset. Initial Sepsis Screen: Does the patient meet any 2 criteria? No. Patient's initial sepsis screen is negative. Does the patient have a suspected source of infection? No. Patient's initial sepsis screen is negative. Risk Assessment: Do you want to hurt yourself or someone else? Patient reports no desire to harm self or others. Onset of symptoms was August 12, 2022. Care prior to arrival: IV initiated. 18 GA, in the right antecubital area, Glucose check: 120. 13:53 Method Of Arrival: EMS: [facility] ss 13:53 Acuity: MAYRA 3 mb9 13:53 Note Home O2 is 88% on RA as reported by EMS. ss Historical: - Allergies: 13:56 Sulfa (Sulfonamide Antibiotics); ss 13:56 TETRACYCLINES; ss - PMHx: 13:56 Chronic obstructive lung disease; Hypertensive disorder; diabetes mellitus; ss - PSHx: 13:56 back; section; Cholecystectomy; foot sx; hernia; hysterectomy; ss - Immunization history:: Adult Immunizations up to date. - Social history:: Smoking status: Patient/guardian denies using tobacco. Screenin:24 [facility] ED Fall Risk Assessment (Adult) History of falling in the last 3 months, mb9 including since admission No falls in past 3 months (0 pts) Confusion or Disorientation Yes (5 pts) Intoxicated or Sedated No (0 pts) Impaired Gait Yes (1 pt) Mobility Assist Device Used Yes (1 pt) Altered Elimination Yes (1 pt) Score/Fall Risk Level 3 or more points = High Risk Oriented to surroundings, Maintained a safe environment, Educated pt \T\ family on fall prevention, incl call for assistance when getting out of bed. Abuse screen: Denies threats or abuse. Nutritional screening: No deficits noted. Tuberculosis screening: No symptoms or risk factors identified. Assessment: 14:10 Reassessment: pt brought back to room 15. mb9 14:15 General: Appears uncomfortable, Behavior is cooperative. mb9 14:15 Pain: Complains of pain in left foot Pain does not radiate. Pain currently is 5 out of mb9 10 on a pain scale. Quality of pain is described as aching, throbbing. Neuro: Burch Agitation-Sedation Scale (RASS): 0 - Alert and Calm Level of Consciousness is awake, obeys commands, Oriented to person, place. Cardiovascular: Heart tones S1 S2 present Rhythm is regular. Respiratory: Airway is patent Respiratory effort is even, unlabored, Respiratory pattern is regular, symmetrical, Breath sounds are clear bilaterally. GI: Abdomen is round distended, Bowel sounds present X 4 quads. Abd is soft X 4 quads Reports diarrhea. : No signs and/or symptoms were reported regarding the genitourinary system. EENT: Oral mucosa is dry. Poor dentition noted. Lesions noted. Derm: Skin is fragile, is thin, with poor turgor Skin is dry, Skin is normal, Wound noted left heel Wound is mastered, purulent discharge noted, and strong odor. Musculoskeletal: Range of motion: limited in bilateral legs. 14:21 Reassessment: pt taken to CT via stretcher and oxygen. mb9 14:55 Reassessment: first set of blood cultures sent. mb9 15:00 Reassessment: pt oxygen saturation dropped to 84% on room air. Pt placed on 2 l/min via mb9 nasal cannula. Oxygen saturation at 94%. 15:40 Reassessment: second set of blood cultures sent. mb9 15:48 Reassessment: Reassessment: No changes from previously documented assessment. Patient mb9 and/or family updated on plan of care and expected duration. Pain level reassessed. Patient is alert, oriented x 3, equal unlabored respirations, skin warm/dry/pink. 17:00 Reassessment: No changes from previously documented assessment. Patient and/or family mb9 updated on plan of care and expected duration. Pain level reassessed. Patient is alert, oriented x 3, equal unlabored respirations, skin warm/dry/pink. 18:10 Reassessment: No changes from previously documented assessment. Patient and/or family mb9 updated on plan of care and expected duration. Pain level reassessed. Patient is alert, oriented x 3, equal unlabored respirations, skin warm/dry/pink. Vital Signs: 14:13 BP 135 / 61; Pulse 84; Resp 24; Pulse Ox 93% on 3 lpm NC; Pain 0/10; mb9 15:48 BP 137 / 54; Pulse 82; Resp 22; Pulse Ox 94% on 3 lpm NC; mb9 16:26 Temp 97.5(TE); Weight 115.67 kg (R); em1 16:44 BP 157 / 80; Pulse 93; Resp 22; Pulse Ox 96% on R/A; mb9 17:40 BP 152 / 47; Pulse 98; Resp 20; Pulse Ox 93% 2 lpm ; mb9 18:40 BP 156 / 72; Pulse 100; Resp 22; Pulse Ox 93% 2 lpm ; mb9 ED Course: 13:53 Patient arrived in ED. ss 13:55 Orlin Medrano NP is PHCP. pm1 13:55 Elan Miguel MD is Attending Physician. pm1 13:56 Arm band placed on right wrist. ss 14:10 Placed in gown. Bed in low position. Call light in reach. Side rails up X 1. Client mb9 placed on continuous cardiac and pulse oximetry monitoring. NIBP monitoring applied. mounter saxophones on. 14:13 Steph Mosqueda, CASTILLO is Primary Nurse. mb9 14:24 Triage completed. mb9 14:28 Head Brain Wo Cont In Process Unspecified. EDMS 14:38 Chest Single View XRAY In Process Unspecified. EDMS 15:00 Maintain EMS IV. Dressing intact. Good blood return noted. Site clean \T\ dry. Gauge \T\ mb 9 site: 18 g right AC. IV. 15:04 CBC with Diff Sent. mb9 15:04 CMP Sent. mb9 15:04 Protime (+inr) Sent. mb9 15:04 Ptt, Activated Sent. mb9 15:23 Notified ED physician of a critical lab result(s). K-2.5. kr3 15:25 EKG done, by ED staff, reviewed by Orlin Medrano NP. jw7 15:39 Foot Left 3 View XRAY In Process Unspecified. EDMS 15:46 Devang Bahena is Hospitalizing Provider. pm1 16:21 Blood Culture Adult (2) Sent. mb9 20:16 No provider procedures requiring assistance completed. Patient admitted, IV remains in mb9 place. Administered Medications: 16:00 Drug: Albuterol 5 mg Route: Inhalation; mb9 17:14 Follow up: Response: No adverse reaction mb9 16:21 Drug: Meropenem 1 grams Route: IV; Rate: calculated rate; Site: right antecubital; mb9 17:14 Follow up: Response: No adverse reaction; IV Status: Completed infusion mb9 16:35 Drug: SOLU-Medrol (methylPrednisoLONE) 80 mg Route: IVP; Site: right antecubital; mb9 17:14 Follow up: Response: No adverse reaction mb9 16:40 Drug: vancoMYCIN 1 grams Route: IVPB; Infused Over: 2 hrs; Site: PICC; mb9 16:44 Drug: Magnesium Sulfate 1 grams Route: IVPB; Infused Over: 1 hrs; Site: left mb9 antecubital; 17:46 Drug: Potassium Chloride 20 mEq Route: IV; Rate: calculated rate; Site: PICC; mb9 Medication: 14:25 VIS not applicable for this client. mb9 Outcome: 15:47 Decision to Hospitalize by Provider. pm1 20:16 Admitted to Tele via stretcher, room 431, with oxygen, with chart, Report called to amy Crain RN 20:16 Condition: unchanged 20:16 Discharge instructions given to patient, Instructed on the need for admit. 20:45 Patient left the ED. mb9 Signatures: Dispatcher [employer] EDMS Tu Ledesma em1 Lesley Newell RN RN ss Marinas, Patrick, NP TOURIST ESCORT pm1 Kaila English jw7 Jumana Martin RN RN [email or web address] Steph Mosqueda RN RN amy Corrections: (The following items were deleted from the chart) 14:58 13:53 Chief complaint: EMS states: Sent by Dr. Bangura for further evaluation and ss treatment of foot wound which is being treated by Dr. Ledesma. Pt c/o increased lethargy since yesterday. ss 15:28 14:15 Derm: Skin is fragile, is thin, with poor turgor Skin is dry, Skin is normal, mb9 mb9
--- NOTE | 2022-08-13 15:47 | EDPHYS ---
Physician Documentation [facility] Name: Jose Edmond Age: 62 yrs Sex: Female : 1960 Arrival Date: 08/13/2022 Time: 13:53 Bed 15 Private MD: ED Physician Elan Miguel HPI: 08/13 14:09 This 62 yrs old Female presents to ER via EMS with complaints of Altered mental status. pm1 14:09 The patient presents with decreased mental status. Onset: The symptoms/episode pm1 began/occurred yesterday. Possible causes: Possibly from infection to left foot. 14:09 Associated signs and symptoms: Pertinent positives: shortness of breath, decreased pm1 oxygen saturation to the 80s without supplemental oxygen provided by EMS. Current symptoms: In the emergency department the patient's symptoms are unchanged from the initial presentation. Patient's baseline: Neuro: alert and fully oriented, Motor: no deficits. 62-year-old female presents to the ER with complaints of altered mental status. Patient was sent for evaluation after her home health nurse contacted Dr. Ann regarding patient's mental status change. She was sent to the ER for evaluation of altered mental status and wound. Per EMS report patient has been lethargic and altered since yesterday per home health nurse. Historical: - Allergies: 13:56 Sulfa (Sulfonamide Antibiotics); ss 13:56 TETRACYCLINES; ss - PMHx: 13:56 Chronic obstructive lung disease; Hypertensive disorder; diabetes mellitus; ss - PSHx: 13:56 back; section; Cholecystectomy; foot sx; hernia; hysterectomy; ss - Immunization history:: Adult Immunizations up to date. - Social history:: Smoking status: Patient/guardian denies using tobacco. ROS: 14:09 Constitutional: Negative for fever, chills, and weight loss, Cardiovascular: Negative pm1 for chest pain, palpitations, and edema. 14:09 Abdomen/GI: Negative for abdominal pain, nausea, vomiting, diarrhea, and constipation. 14:09 Respiratory: Positive for shortness of breath. 14:09 MS/extremity: Positive for of the left foot, Wound that has not been improving. 14:09 Skin: Positive for cellulitis, of the left foot. 14:09 Neuro: Positive for altered mental status. 14:09 All other systems are negative. Exam: 14:09 Constitutional: This is a well developed, well nourished patient who is awake, alert, pm1 and in no acute distress. Head/Face: Normocephalic, atraumatic. 14:09 Back: No spinal tenderness. No costovertebral tenderness. Full range of motion. Skin: Warm, dry with normal turgor. Normal color with no rashes, no lesions, and no evidence of cellulitis. MS/ Extremity: Pulses equal, no cyanosis. Neurovascular intact. Full, normal range of motion. 14:09 Cardiovascular: Exam negative for acute changes, Rate: normal, Rhythm: regular, Pulses: no pulse deficits are appreciated, Heart sounds: normal. 14:09 Respiratory: mild respiratory distress is noted, Breath sounds: no acute changes. 14:09 Neuro: Orientation: to person, place, situation, Not oriented to time. Vital Signs: 14:13 BP 135 / 61; Pulse 84; Resp 24; Pulse Ox 93% on 3 lpm NC; Pain 0/10; mb9 15:48 BP 137 / 54; Pulse 82; Resp 22; Pulse Ox 94% on 3 lpm NC; mb9 16:26 Temp 97.5(TE); Weight 115.67 kg (R); em1 16:44 BP 157 / 80; Pulse 93; Resp 22; Pulse Ox 96% on R/A; mb9 17:40 BP 152 / 47; Pulse 98; Resp 20; Pulse Ox 93% 2 lpm ; mb9 18:40 BP 156 / 72; Pulse 100; Resp 22; Pulse Ox 93% 2 lpm ; mb9 MDM: 13:57 Patient medically screened. pm1 15:29 Data reviewed: vital signs. pm1 15:39 Management of patient was discussed with the following: Pecan Huller: Dr. Ann: Place pm1 patient on meropenum and Vancomycin and admit the patient to the hospitalist. 15:45 Counseling: I had a detailed discussion with the patient and/or guardian regarding: the pm1 historical points, exam findings, and any diagnostic results supporting the discharge/admit diagnosis, lab results, radiology results, the need for further work-up and treatment in the hospital. 16:24 Management of patient was discussed with the following: Hospitalist: Requests ABG and pm1 consult with surgery, Dr Ledesma. 16:59 Management of patient was discussed with the following: Pecan Huller: Dr Ledesma. NPO pm1 not needed after midnight, she will not be requiring surgery. Continue current wound care with mari. He saw the patient yesterday and debrided it. 08/13 14:09 Order name: COVID-19/FLU A+B; Complete Time: 16:55 pm1 08/13 14:09 Order name: Blood Culture Adult (2) pm1 08/13 14:09 Order name: CBC with Diff; Complete Time: 15:28 pm1 08/13 14:09 Order name: CMP; Complete Time: 15:28 pm1 08/13 14:09 Order name: Protime (+inr); Complete Time: 15:28 pm1 08/13 14:09 Order name: Ptt, Activated; Complete Time: 15:28 pm1 08/13 15:05 Order name: Glucose, Ancillary Testing; Complete Time: 15:28 EDMS 08/13 16:16 Order name: Magnesium pm1 08/13 16:17 Order name: Urine Dipstick-Ancillary; Complete Time: 16:18 EDMS 08/13 16:20 Order name: ABG pm1 08/13 17:38 Order name: Basic Metabolic Panel EDMS 08/13 17:38 Order name: Creatine Phosphokinase EDMS 08/13 17:38 Order name: Magnesium EDMS 08/13 14:09 Order name: CT Head Brain wo Cont pm1 08/13 14:09 Order name: Chest Single View XRAY; Complete Time: 14:57 pm1 08/13 14:13 Order name: Head Brain Wo Cont; Complete Time: 14:41 EDMS 08/13 14:59 Order name: Foot Left 3 View XRAY; Complete Time: 16:04 pm1 08/13 17:35 Order name: Foot Left Wo Cont EDMS 08/13 17:38 Order name: Phosphorus EDMS 08/13 17:38 Order name: T4 Free EDMS 08/13 17:38 Order name: Thyroid Stimulating Hormone EDMS 08/13 17:38 Order name: Urinalysis EDMS 08/13 17:40 Order name: CBC with Automated Diff EDMS 08/13 17:40 Order name: CBC with Automated Diff EDMS 08/13 17:40 Order name: NT PRO-BNP EDMS 08/13 17:40 Order name: NT PRO-BNP EDMS 08/13 14:09 Order name: EKG; Complete Time: 14:10 pm1 08/13 14:09 Order name: Accucheck; Complete Time: 15:04 pm1 08/13 14:09 Order name: Cardiac monitoring; Complete Time: 14:14 pm1 08/13 14:09 Order name: EKG - Nurse/Tech; Complete Time: 15:25 pm1 08/13 14:09 Order name: Labs collected and sent; Complete Time: 15:27 pm08/13 14:09 Order name: O2 Per Protocol; Complete Time: 14:14 pm1 08/13 14:09 Order name: O2 Sat Monitoring; Complete Time: 14:14 pm1 08/13 14:09 Order name: Urine Dipstick-Ancillary (obtain specimen); Complete Time: 16:21 pm1 08/13 14:09 Order name: Vital Signs; Complete Time: 14:14 pm1 08/13 14:21 Order name: [place]ail; Complete Time: 16:21 9 08/13 17:38 Order name: 60g Consistent Carbohydrate (ADA 1800/2000) EDMS EC:37 Rate is 86 beats/min. Rhythm is regular, Normal Sinus Rhythm. QRS [place] is Normal. [place] pm1 interval is normal. QRS interval is normal. No Q waves. Clinical impression: Normal sinus rhythm, ST and T wave abnormality, abnormal EKG. Administered Medications: 16:00 Drug: Albuterol 5 mg Route: Inhalation; mb9 17:14 Follow up: Response: No adverse reaction mb9 16:21 Drug: Meropenem 1 grams Route: IV; Rate: calculated rate; Site: right antecubital; mb9 17:14 Follow up: Response: No adverse reaction; IV Status: Completed infusion mb9 16:35 Drug: SOLU-Medrol (methylPrednisoLONE) 80 mg Route: IVP; Site: right antecubital; mb9 17:14 Follow up: Response: No adverse reaction mb9 16:40 Drug: vancoMYCIN 1 grams Route: IVPB; Infused Over: 2 hrs; Site: PICC; mb9 16:44 Drug: Magnesium Sulfate 1 grams Route: IVPB; Infused Over: 1 hrs; Site: left mb9 antecubital; 17:46 Drug: Potassium Chloride 20 mEq Route: IV; Rate: calculated rate; Site: PICC; mb9 Disposition Summary: 08/13/22 15:47 Hospitalization Ordered Hospitalization Status: Inpatient Admission pm1 Provider: Devang Bahena pm1 Location: Telemetry/MedSurg (Inpatient) pm1 Condition: Stable pm1 Problem: new pm1 Symptoms: have improved pm1 Bed/Room Type: Standard pm1 Room Assignment: 431(08/13/22 20:06) cg Diagnosis - Altered mental status, unspecified pm1 - Osteomyelitis, unspecified - left foot pm1 - COPD/ Chronic obstructive pulmonary disease with (acute) exacerbation pm1 Forms: - Medication Reconciliation Form pm1 - SBAR form pm1 Signatures: Dispatcher [employer] EDMS Lesley Newell RN RN Maine Cragi RN RN cg Orlin Medrano NP LAWN SERVICE MANAGER pm1 Steph Mosqueda RN RN mb9 Corrections: (The following items were deleted from the chart) 15:46 15:39 Management of patient was discussed with the following: Pecan Huller: Dr. Ann: pm1 Place patient on meropenum and Vancomycin and admit the patient to the hospitalist. pm1 16:12 15:48 COPD/ Chronic obstructive pulmonary disease, unspecified pm1 pm1 16:28 16:24 Arterial Blood Gas+RC.LAB.BRZ ordered. EDWA EDMS 20:06 15:47 pm1 cg
--- NOTE | 2022-08-13 15:53 | RAD REPORT ---
EXAM DESCRIPTION: RAD - Foot Left 3 View - 08/13/2022 3:37 pm CLINICAL HISTORY: Wound COMPARISON: Foot Left 3 View dated 07/23/2022 FINDINGS/IMPRESSION: No acute fracture. No malalignment. Mild plantar and dorsal aspect calcaneal sp urring. The appearance of the calcaneus is similar to 07/23/2022. No definite evidence of osteomyelit is. MRI could confirm if clinically indicated.
[2022-08-13] MEDS ORDERED: Meropenem 1000 MG/VIAL IV ONE (15:58)
[2022-08-13] MEDS ORDERED: NA CHLORIDE 0.9% 250 ML ONE ×2 (15:58→22:16)
[2022-08-13] MEDS ORDERED: VANCOMYCIN 1 GM/VIAL ONE ×2 (15:58→22:16)
[2022-08-13] MEDS ORDERED: NA CHLORIDE 0.9% 100 ML IV ONE (15:58)
[2022-08-13] MEDS ORDERED: ALBUTEROL INHALER 60 PUFF/8 GM IH ONE (15:58)
[2022-08-13 16:17] LABS: Urine Blood 2+ (Negative); Urine Glucose Negative (Negative); Urine Protein 3+ (Negative)
[2022-08-13] MEDS ORDERED: KCL 20 MEQ/100 mL IVPB 100 ML IV ONE (16:28)
[2022-08-13] MEDS ORDERED: MAGNESIUM SULFATE 1 gm IVPB 1 GM/100 ML BAG IV ONE (16:28)
[2022-08-13] MEDS ORDERED: METHYLPREDNISOLONE 40 MG INJ ONE (16:28)
[2022-08-13 16:51] LABS: SARS-COV-2 RT PCR NEGATIVE (NEGATIVE)
[2022-08-13 16:57] LABS: Arterial Blood Carboxyhemoglob 1.6 % (0-1.5); Blood Gas Oxyhemoglobin 89.3 % (94-97)
[2022-08-13] MEDS ORDERED: ONDANSETRON 4 MG/2 ML VIAL IV PRN (17:36)
--- NOTE | 2022-08-13 17:38 | P.HP ---
Certification for Inpatient Patient admitted to: Inpatient With expected LOS: >2 Midnights Patient will require the following post-hospital care: None Practitioner: I am a practitioner with admitting privileges, knowledge of patient current condition, hospital course, and medical plan of care. Services: Services provided to patient in accordance with Admission requirements found in Title 42 Section 412.3 of the Code of Federal Regulations Patient History Date of Service: 08/13/22 Reason for admission: Left foot wound and AMS History of Present Illness: Patient is a 62-year-old female with a past medical history significant for COPD, hypertension, DM 2 who presents with complaint of left foot wound pain and altered mental status. Patient follows up with an outpatient surgeon for wound care. Patient recently had debridement with her surgeon outpatient. Patient is currently alert and oriented, confused, and unable to provide accurate history. Patient rated left foot pain as 7/10 in severity and described pain as aching quality. Patient reported associated signs and symptoms of shortness of breath and generalized malaise. Patient denies any other signs or symptoms. Symptoms are aggravated or relieved by nothing. Patient decided to present to the hospital due to worsening symptoms. Allergies Sulfa (Sulfonamide Antibiotics) Allergy (Verified 07/14/22 13:21) Nausea/Vomiting sulfamethoxazole [From Bactrim] Allergy (Verified 07/14/22 13:21) Nausea/Vomiting tetracycline Allergy (Verified 07/14/22 13:21) Nausea/Vomiting trimethoprim [From Bactrim] Allergy (Verified 07/14/22 13:21) Nausea/Vomiting Home Medications: Albuterol Sulfate [Proair Digihaler] 2 puff IH Q6H PRN 07/24/22 Aspirin 1 cap PO DAILY 07/24/22 Chlorhexidine 0.12% [Periogard*] 1 dose PO BID 07/24/22 Chlorhexidine 4% [Betasept*] 1 radha TOP DAILY 07/24/22 Diclofenac Sodium [Voltaren] 1 tab PO BID 07/24/22 Empagliflozin [Jardiance] 1 tab PO DAILY 07/24/22 Fish Oil/Dha/Epa [Fish Oil 1,200 mg Fish Oil] 1 tab PO DAILY 07/24/22 Furosemide 1 tab PO DAILY 07/24/22 Gabapentin 1 tab PO QID 07/24/22 Glipizide [Glipizide Xl] 1 tab PO DAILY 07/24/22 Hydrocodone Bit/Acetaminophen [Hydrocodon-Acetaminoph 7.5-325] 1 tab PO Q6H PRN 07/24/22 Loxitane 1 tab PO DAILY 07/24/22 Metformin HCl 1 tab PO TID 07/24/22 Methylcellulose (with Sugar) [Citrucel Powder] 1 dose PO DAILY 07/24/22 Mupirocin Cream [Bactroban 2% Cream*] 1 dose TOP TID 07/24/22 NIFEdipine [Nifedipine ER] 1 tab PO BID 07/24/22 Quinapril HCl 1 tab PO DAILY 07/24/22 Spironolactone 1 tab PO DAILY 07/24/22 Venlafaxine HCl [Venlafaxine HCl ER] 1 tab PO DAILY 07/24/22 clonazePAM [Klonopin] 1 mg PO TID 07/24/22 Collagenase [Santyl Ointment*] 1 appl TOP DAILY #1 tube 07/30/22 - Past Medical/Surgical History Diabetic: Yes -: pancreatitis -: DM -: depression -: anxiety -: Kidney stones -: HTN -: COPD -: glaucoma -: cholecystectomy -: C-sections -: Back -: Hysterectomy Psychosocial/ Personal History: Patient lives at home with family - Family History Father -: Heart disease, Hypertension, Diabetes Mother -: Heart disease, Hypertension Sister -: Cancer - Social History Smoking Status: Unknown if ever smoked Alcohol use: No CD- Drugs: No Caffeine use: Yes Place of Residence: Home Review of Systems is unable to be obtained (Patient confused. Unable to assess) Physical Examination - Physical Exam General: Alert, In no apparent distress, Oriented x3, Cooperative HEENT: Atraumatic, PERRLA, Mucous membr. moist/pink, EOMI, Sclerae nonicteric Neck: Supple, 2+ carotid pulse no bruit, JVD not distended, No LAD, Without JVD or thyroid abnormality Respiratory: Diminished Cardiovascular: Regular rate/rhythm, Normal S1 S2 Capillary refill: <2 Seconds Gastrointestinal: Normal bowel sounds, Soft and benign Musculoskeletal: Erythema, Other Integumentary: Tenderness/swelling, Erythema, Other (Left foot wound ) Neurological: Normal speech, Normal tone, Normal affect Lymphatics: No axilla or inguinal lymphadenopathy - Studies Laboratory Data (last 24 hrs) 08/13/22 16:55: Magnesium 2.3 08/13/22 14:54: PT 13.7 H, INR 1.25, APTT 28.3 08/13/22 14:54: Sodium 139, Potassium 2.5 L*, BUN 30 H, Creatinine 1.39 H, Glucose 96, Total Bilirubin 0.4, AST 29, ALT 29, Alkaline Phosphatase 73 08/13/22 14:54: WBC 7.10, Hgb 8.1 L, Hct 24.9 L, Plt Count 357 Assessment and Plan - Plan --Left foot wound. MRI left foot pending to rule out osteomyelitis. Patient follows with an outpatient surgeon for wound care. Infectious disease MD consulted. Patient placed on antibiotics. Will await further recommendation from infectious disease MD. --Acute pain. We will manage pain with current pain medication regimen. --Acute encephalopathy. Unclear etiology. CT head unremarkable for any acute intracranial abnormality. Continue supportive care. --Acute on chronic COPD exacerbation. Continue neb treatment with albuterol\Atrovent, steroids and O2 therapy. --Anemia of chronic disease. H&H stable. We will continue to monitor hemoglobin and transfuse if less than 7.0. --DM2. BS monitoring with sliding scale insulin. --Hypokalemia. Replete as needed. --ESPERANZA. Likely drug induced. Patient was on vancomycin outpatient. Had temporary hold on IV antibiotics O/P. Nephrology consulted. Will await further recommendations. --Hypertension. Poorly controlled. Continue home medications and labetalol as needed. --DVT prophylaxis with heparin subQ. Discharge Plan: Home Plan to discharge in: Greater than 2 days - Advance Directives Does patient have a Living Will: No Does patient have a Durable POA for Healthcare: No - Code Status/Comfort Care Code Status Assessed: Yes Physician Review: Patient Assessed, Agree with Above Assessment and Plan Critical Care: No
[2022-08-13] MEDS ORDERED: POTASSIUM CL SA 10 MEQ TAB PO ONE ×2 (18:00→19:25)
[2022-08-13] MEDS ORDERED: VANCOMYCIN 1 GM in NA CHLORIDE 0.9% 250 ML IVPB ONE ×3 (18:10→22:17)
[2022-08-13 19:09] LABS: Magnesium 2.4 mg/dL (1.6-2.4); Phosphorus 1.7 mg/dL (2.5-4.9); Thyroid Stimulating Hormone 1.01 uIU/mL (0.358-3.740)
[2022-08-13 19:15] LABS: Potassium 2.8 mmol/L (3.5-5.1)
[2022-08-13] MEDS: MUPIROCIN TOP SCH (21:00)
[2022-08-13] MEDS: INSULIN -REGULAR HUMAN 50 UNIT/0.5 ML ML SQ SCH (22:35)
[2022-08-13] MEDS: HEPARIN 5000 UNIT/ML 1 ML VIAL SQ SCH (22:35)
[2022-08-14 05:38] LABS: Absolute Lymphocytes (CBC) 0.8 K/uL (0.7-4.9); Hematocrit 23.8 % (36.0-45.0); Lymphocytes % 14.9 % (15.3-44.8); MCV 70.9 fL (80-100); MPV 8.8 fL (7.6-11.3); RBC Red Blood Cell Count 3.36 M/uL (3.86-4.86)
[2022-08-14 05:59] LABS: Phosphorus 2.7 mg/dL (2.5-4.9); Potassium 3.1 mmol/L (3.5-5.1)
[2022-08-14] MEDS: INSULIN -REGULAR HUMAN 50 UNIT/0.5 ML ML SQ SCH ×4 (07:30→21:13)
[2022-08-14] MEDS ORDERED: PNEUMOCOCCAL VACCINE 0.5 ML IMVAC ONE (08:00)
[2022-08-14] MEDS: ASPIRIN 325 MG TAB PO SCH (08:18)
[2022-08-14] MEDS: NIFEDIPINE XL 30 MG TABLET PO SCH ×2 (08:18→21:14)
[2022-08-14] MEDS: VENLAFAXINE HCL XR 75 MG CAP PO SCH (08:18)
[2022-08-14] MEDS: HEPARIN 5000 UNIT/ML 1 ML VIAL SQ SCH ×2 (08:18→21:07)
[2022-08-14] MEDS: MUPIROCIN TOP SCH ×3 (08:20→21:00)
[2022-08-14] MEDS: ALBUTEROL 2.5 MG/3 ML NEB SOL NEB SCH ×3 (08:20→19:40)
[2022-08-14] MEDS: IPRATROPIUM BROM 0.5MG/2.5ML NEB SCH ×3 (08:20→19:40)
[2022-08-14] MEDS: [UNRECOGNIZED DRUG - OTHER] PO SCH (08:20)
[2022-08-14] MEDS: COLLAGENASE TOP SCH (08:20)
[2022-08-14] MEDS: METHYLCELLULOSE PO SCH (08:20)
[2022-08-14] MEDS: HOME MED 1 EA UNK (Fish Oil/Dha/Epa [Fish Oil 1,200 Mg Fish Oil] Capsule) PO SCH (08:20)
[2022-08-14] MEDS ORDERED: FUROSEMIDE 40 MG TABLET PO SCH (09:00)
[2022-08-14] MEDS ORDERED: ASPIRIN 81 MG CHEWABLE TABLET PO SCH (09:00)
[2022-08-14] MEDS ORDERED: POTASSIUM CL SA 10 MEQ TAB PO ONE (09:00)
--- NOTE | 2022-08-14 09:19 | P.CNS ---
Date of Consult: 08/14/22 Reason for Consult: ESPERANZA, hypokalemia Requesting Physician: Carrington Jean Chief Complaint: Left foot wound and AMS History of Present Illness: Patient is a 62-year-old female with a past medical history significant for COPD, chronic dyspnea, chronic sub optimally controlled hypertensionon severe agents, DM 2 with unspecified complications who presents with complaint of left foot wound pain and altered mental status. Patient follows up with an outpatient surgeon for wound care. Patient reportedly had debridement with her surgeon as an outpatient. Patient also reported associated signs and symptoms of shortness of breath and generalized malaise and ABG done in the ER showed mild hypoxia. Pt appears a bit more alert this AM. She acknowledges some recent diarrhea on Abx. She acknowledges use of NSAIDs. Allergies Sulfa (Sulfonamide Antibiotics) Allergy (Verified 07/14/22 13:21) Nausea/Vomiting sulfamethoxazole [From Bactrim] Allergy (Verified 07/14/22 13:21) Nausea/Vomiting tetracycline Allergy (Verified 07/14/22 13:21) Nausea/Vomiting trimethoprim [From Bactrim] Allergy (Verified 07/14/22 13:21) Nausea/Vomiting Home Medications: Albuterol Sulfate [Proair Digihaler] 2 puff IH Q6H PRN 07/24/22 Aspirin 1 cap PO DAILY 07/24/22 Chlorhexidine 0.12% [Periogard*] 1 dose PO BID 07/24/22 Chlorhexidine 4% [Betasept*] 1 radha TOP DAILY 07/24/22 Diclofenac Sodium [Voltaren] 1 tab PO BID 07/24/22 Empagliflozin [Jardiance] 1 tab PO DAILY 07/24/22 Fish Oil/Dha/Epa [Fish Oil 1,200 mg Fish Oil] 1 tab PO DAILY 07/24/22 Furosemide 1 tab PO DAILY 07/24/22 Gabapentin 1 tab PO QID 07/24/22 Glipizide [Glipizide Xl] 1 tab PO DAILY 07/24/22 Hydrocodone Bit/Acetaminophen [Hydrocodon-Acetaminoph 7.5-325] 1 tab PO Q6H PRN 07/24/22 Loxitane 1 tab PO DAILY 07/24/22 Metformin HCl 1 tab PO TID 07/24/22 Methylcellulose (with Sugar) [Citrucel Powder] 1 dose PO DAILY 07/24/22 Mupirocin Cream [Bactroban 2% Cream*] 1 dose TOP TID 07/24/22 NIFEdipine [Nifedipine ER] 1 tab PO BID 07/24/22 Quinapril HCl 1 tab PO DAILY 07/24/22 Spironolactone 1 tab PO DAILY 07/24/22 Venlafaxine HCl [Venlafaxine HCl ER] 1 tab PO DAILY 07/24/22 clonazePAM [Klonopin] 1 mg PO TID 07/24/22 Collagenase [Santyl Ointment*] 1 appl TOP DAILY #1 tube 07/30/22 - Past Medical/Surgical History Diabetic: Yes -: pancreatitis -: DM -: depression -: anxiety -: Kidney stones -: HTN -: COPD -: glaucoma -: cholecystectomy -: C-sections -: Back -: Hysterectomy Psychosocial/ Personal History: Patient lives at home with family - Family History Father Medical History: Heart disease, Hypertension, Diabetes Mother Medical History: Heart disease, Hypertension Sister Medical History: Cancer - Social History Smoking Status: Current some day smoker Alcohol use: No CD- Drugs: No Caffeine use: Yes Place of Residence: Home Review of Systems General: Weakness, Malaise Eyes: Unremarkable ENT: Unremarkable Respiratory: Shortness of Breath, As per HPI Cardiovascular: Edema Gastrointestinal: Diarrhea Genitourinary: Unremarkable Musculoskeletal: Foot Pain, As per HPI Integumentary: As per HPI Neurological: Confusion, As per HPI Lymphatics: Unremarkable Physical Examination Temp Pulse Resp BP Pulse Ox 97.4 F 104 H 20 169/75 H 93 08/14/22 08:00 08/14/22 08:18 08/14/22 08:00 08/14/22 08:18 08/14/22 08:00 General: In no apparent distress, Cooperative HEENT: Atraumatic, Normocephalic, PERRLA Neck: Supple Respiratory: Normal air movement, Diminished Cardiovascular: Regular rate/rhythm, Normal S1 S2 Gastrointestinal: Soft and benign, Non-distended, No tenderness, No rebound Musculoskeletal: No contractures, Other (Lt foot dressd) Integumentary: Other (Did not examine left foot wound, see notes by the primary team for details) Neurological: Normal speech, Normal tone, Normal affect Laboratory Data (last 24 hrs) 08/13/22 16:55: Magnesium 2.3 08/13/22 14:54: PT 13.7 H, INR 1.25, APTT 28.3 08/13/22 14:54: Sodium 139, Potassium 2.5 L*, BUN 30 H, Creatinine 1.39 H, Glucose 96, Total Bilirubin 0.4, AST 29, ALT 29, Alkaline Phosphatase 73 08/13/22 14:54: WBC 7.10, Hgb 8.1 L, Hct 24.9 L, Plt Count 357 Conclusions/Impression: A/P) 1. Abnormal results of kidney function studies 2. Stage 1 ESPERANZA 3. Hypokalemia 4. Hypophosphatemia 5. Dyspnea, mild hypoxia 6. Chronic, active use of NSAIDs 7. Chronic HTN 8. Abnormality of albumin 9. Proteinuria unspecified -Pt's labs show Stage 1 ESPERANZA in c/w prior labs which have shown Cr levels more within normal limits. Pt was taking a large dose of loop diuretic and likely had some intravascular vol depletion, compounded by concurrent use of NSAIDs, max dose ACEi, other. -Cr level lower on repeat check, cont to hold NSAIDs, monitor Vanc levels. Ok to resume ACEi at lower dose as BP mod elevated but will suspend loop diuretics at least temp -Hypokalemia, severe on admission 2nd to chronic loop diuretic use, possible diarrhea and likely poor PO intake as phos was also low. S/p KCL doses, Mg level ok. Holding Lasix. Restarting ACEi and Spironolactone -Dyspnea, hypoxia likely multifactorial. Underlying COPD per report. CXR noted. Holding off on IVF admin. -Check spot urine study. -Trend BP, target BP < 140/90 Pete Remy MD, KATHRIN
[2022-08-14] MEDS: lisinopriL 20 MG TAB PO SCH (09:48)
[2022-08-14] MEDS ORDERED: KCL 20 MEQ/100 mL IVPB 20 MEQ/100 ML BAG IV SCH (10:00)
[2022-08-14] MEDS ORDERED: SPIRONOLACTONE 25 MG TABLET PO SCH (10:00)
--- NOTE | 2022-08-14 11:22 | P.CNS ---
Chief Complaint: Left foot wound and AMS History of Present Illness: Patient is a 62-year-old female with a past medical history significant for COPD, hypertension, DM 2 who presents with complaint of left foot wound pain and altered mental status. Patient follows up with an outpatient surgeon for wound care. Patient recently had debridement with her surgeon outpatient. Patient is currently alert and oriented, confused, and unable to provide accurate history. Patient rated left foot pain as 7/10 in severity and described pain as aching quality. Patient reported associated signs and symptoms of shortness of breath and generalized malaise. Patient denies any other signs or symptoms. Symptoms are aggravated or relieved by nothing. Patient decided to present to the hospital due to worsening symptoms. ID is consulted for recommendation of IV antibiotics and management for left foot ulcer. Allergies Sulfa (Sulfonamide Antibiotics) Allergy (Verified 07/14/22 13:21) Nausea/Vomiting sulfamethoxazole [From Bactrim] Allergy (Verified 07/14/22 13:21) Nausea/Vomiting tetracycline Allergy (Verified 07/14/22 13:21) Nausea/Vomiting trimethoprim [From Bactrim] Allergy (Verified 07/14/22 13:21) Nausea/Vomiting Home Medications: Albuterol Sulfate [Proair Digihaler] 2 puff IH Q6H PRN 07/24/22 Chlorhexidine 0.12% [Periogard*] 1 dose PO BID 07/24/22 Chlorhexidine 4% [Betasept*] 1 radha TOP DAILY 07/24/22 Fish Oil/Dha/Epa [Fish Oil 1,200 mg Fish Oil] 1 tab PO DAILY 07/24/22 Furosemide 1 tab PO DAILY 07/24/22 Gabapentin 1 tab PO QID 07/24/22 Glipizide [Glipizide Xl] 1 tab PO DAILY 07/24/22 Hydrocodone Bit/Acetaminophen [Hydrocodon-Acetaminoph 7.5-325] 1 tab PO Q6H PRN 07/24/22 Loxitane 1 tab PO DAILY 07/24/22 Metformin HCl 1 tab PO TID 07/24/22 Mupirocin Cream [Bactroban 2% Cream*] 1 dose TOP TID 07/24/22 NIFEdipine [Nifedipine ER] 1 tab PO BID 07/24/22 Quinapril HCl 1 tab PO DAILY 07/24/22 Spironolactone 1 tab PO BID 07/24/22 Venlafaxine HCl [Venlafaxine HCl ER] 1 tab PO DAILY 07/24/22 clonazePAM [Klonopin] 1 mg PO TID 07/24/22 Collagenase [Santyl Ointment*] 1 appl TOP DAILY #1 tube 07/30/22 Loxapine [Adasuve] 100 mg PO BEDTIME 08/14/22 Tizanidine [Zanaflex*] 4 mg PO PRN 08/14/22 - Past Medical/Surgical History Diabetic: Yes -: pancreatitis -: DM -: depression -: anxiety -: Kidney stones -: HTN -: COPD -: glaucoma -: cholecystectomy -: C-sections -: Back -: Hysterectomy Psychosocial/ Personal History: Patient lives at home with family - Family History Father Medical History: Heart disease, Hypertension, Diabetes Mother Medical History: Heart disease, Hypertension Sister Medical History: Cancer - Social History Smoking Status: Current some day smoker Alcohol use: No CD- Drugs: No Caffeine use: Yes Place of Residence: Home Review of Systems 10-point ROS is otherwise unremarkable General: Malaise Musculoskeletal: Foot Pain, Other (left foot wound) Integumentary: Bruising (on aspirin 81 mg), Other (open wound of left foot) Physical Examination Temp Pulse Resp BP Pulse Ox 97.4 F 104 H 20 169/75 H 93 08/14/22 08:00 08/14/22 08:18 08/14/22 08:00 08/14/22 08:18 08/14/22 08:00 General: Alert, Oriented x2, Confused HEENT: Other (wearing glasses) Respiratory: Clear to auscultation bilaterally, Other (4L of NC) Cardiovascular: Normal pulses, Normal S1 S2 Gastrointestinal: Normal bowel sounds Musculoskeletal: Tenderness (due to left foot wound) Integumentary: Diabetic ulcer (left foot) Neurological: Other (confused at times) Urinary: Vail catheter (urine yellow and clear) Current Medications: Acetaminophen (Acetaminophen 325 Mg Tablet) 650 mg PO Q6H PRN PRN Reason: TEMP > 100.4' F Hydrocodone Bitart/Acetaminophen (Hydrocodone/Apap 5/325 Mg Tab) 1 tab PO Q6H PRN PRN Reason: Pain scale 5-7 (Moderate) Albuterol Sulfate (Albuterol 2.5 Mg/3 Ml Neb Jesika) 2.5 mg NEB [id number] [facility] Last Admin: 08/14/22 08:20 Dose: 2.5 mg Aspirin (Aspirin 325 Mg Tab) 325 mg PO DAILY [facility] Last Admin: 08/14/22 08:18 Dose: 325 mg Heparin Sodium (Porcine) (Heparin 5000 Unit/Ml 1 Ml Vial) 5,000 unit SQ Q12HR [facility] Last Admin: 08/14/22 08:18 Dose: 5,000 unit Home Med (Home Med 1 Ea Unk [Collagenase 30 Gm Ointment]) 1 ea TOP DAILY [facility] Last Admin: 08/14/22 08:20 Dose: Not Given Home Med (Fish Oil/Dha/Epa [Fish Oil 1,200 Mg Fish Oil]) 1 tab PO DAILY [facility] Last Admin: 08/14/22 08:20 Dose: Not Given Home Med (Methylcellulose (With Sugar) [Citrucel Powder]) 1 dose PO DAILY [facility] Last Admin: 08/14/22 08:20 Dose: Not Given Home Med (Mupirocin Cream) 1 dose TOP TID [facility] Last Admin: 08/14/22 08:20 Dose: Not Given Meropenem 1,000 mg/ Sodium (Chloride) 100 mls @ 200 mls/hr IV Q8HR [facility] Vancomycin HCl 2 gm/ Sodium (Chloride) 500 mls @ 250 mls/hr IVPB Q24H [facility] Potassium Chloride (Kcl 20 Meq/100 Ml Ivpb (Premix)) 20 meq in 100 mls @ 50 mls/hr IV 1X [facility]; Protocol Stop: 08/14/22 11:59 Last Admin: 08/14/22 10:49 Dose: 100 mls Insulin Human Regular (Insulin -Regular Human 50 Unit/0.5 Ml Ml) 0 unit SQ ACHS [facility]; Protocol Last Admin: 08/14/22 07:30 Dose: Not Given Ipratropium [place] (Ipratropium Brom 0.5mg/2.5ml) 0.5 mg NEB [id number] [facility] Last Admin: 08/14/22 08:20 Dose: 0.5 mg Labetalol HCl (Labetalol 20 Mg/4ml Syringe) 10 mg IV Q6H PRN PRN Reason: sbp Lisinopril (Lisinopril 20 Mg Tab) 20 mg PO DAILY [facility] Last Admin: 08/14/22 09:48 Dose: 20 mg Nifedipine (Nifedipine Xl 30 Mg Tablet) 30 mg PO BID [facility] Last Admin: 08/14/22 08:18 Dose: 30 mg Ondansetron HCl (Ondansetron 4 Mg/2 Ml Vial) 4 mg IV Q6HP PRN PRN Reason: NAUSEA / VOMITING Sodium Chloride (Flush Normal Saline 10 Ml) 10 ml IV BID [facility] Last Admin: 08/14/22 08:19 Dose: 10 ml Spironolactone (Spironolactone 25 Mg Tablet) 25 mg PO BID [facility] Venlafaxine HCl (Venlafaxine Hcl Xr 75 Mg Cap) 150 mg PO DAILY [facility] Last Admin: 08/14/22 08:18 Dose: 150 mg Laboratory Data (last 24 hrs) 08/13/22 16:55: Magnesium 2.3 08/13/22 14:54: PT 13.7 H, INR 1.25, APTT 28.3 08/13/22 14:54: Sodium 139, Potassium 2.5 L*, BUN 30 H, Creatinine 1.39 H, Glucose 96, Total Bilirubin 0.4, AST 29, ALT 29, Alkaline Phosphatase 73 08/13/22 14:54: WBC 7.10, Hgb 8.1 L, Hct 24.9 L, Plt Count 357 Imagings Data: 08/13 Foot XRay: COMPARISON: Foot Left 3 View dated 07/23/2022 FINDINGS/IMPRESSION: No acute fracture. No malalignment. Mild plantar and dorsal aspect calcaneal spurring. The appearance of the calcaneus is similar to 07/23/2022. No definite evidence of osteomyelitis. MRI could confirm if clinically indicated. 08/13 CT Head: FINDINGS: No intracranial hemorrhage, hydrocephalus or extra-axial fluid collection.No areas of brain edema or evidence of midline shift. 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 The paranasal sinuses and mastoids are clear. The calvarium is intact. IMPRESSION: No acute intracranial abnormality. Remote appearing left parietal and left occipital lobe infarcts. 08/13 Chest XRay: FINDINGS: Lines: Left subclavian approach PICC with tip overlying the SVC. Lungs: Improved aeration of the lungs with some resolution of edema. Increased lung markings at the left lung base is a chronic finding. Pleural: No significant pleural effusions or pneumothorax. Cardiac: Similar size and configuration Mediastinum: Within normal limits. Bones: No acute fractures. Remote left-sided rib fractures. Other: None IMPRESSION: Aeration of the lungs appears improved since 08/03/2022. No acute process identified. - Problems (1) Open wound of left heel Current Visit: No Status: Acute Plan: Cultures: 08/13 BC: Pending 08/14 Wound culture ordered and pending Imagin. 08/13 Foot Xray: FINDINGS/IMPRESSION: No acute fracture. No malalignment. Mild plantar and dorsal aspect calcaneal spurring. The appearance of the calcaneus is similar to 07/23/2022. No definite evidence of osteomyelitis. MRI could confirm if clinically indicated. 2. MRI to r/o osteomyelitis: Pending Antibiotics: 08/13 Started IV Meropenem and Vancomycin Recommendation: 1. Continue current IV antibiotics Meropenem and Vancomycin 2. Elevated the affected leg to reduce edema and offload pressure 3. Would culture ordered and pending ID will closely monitoring the patient for signs of infection with fever and WBC trends. Conclusions/Impression: - Left foot wound: Continue current IV antibiotics Meropenem and Vancomycin. MRI left foot pending to rule out osteomyelitis. Patient follows with an outpatient surgeon for wound care - Acute pain - Acute encephalopathy. Unclear etiology. CT head unremarkable for any acute intracranial abnormality - Acute on chronic COPD exacerbation - Anemia of chronic disease: We will continue to monitor hemoglobin and transfuse if less than 7.0 - DM2 - Hypokalemia - ESPERANZA: Nephrology consulted - Hypertension Case has been discussed with Roselyn Dorsey Thank you Dr. Chaudhari for consult Physician Review: Patient Assessed, Agree with Above Assessment and Plan
[2022-08-14] MEDS: HYDROCODONE/APAP 5/325 MG TAB PO PRN ×2 (11:31→19:38)
--- NOTE | 2022-08-14 14:23 | EKG ---
Test Date: 2022-08-13 Test Time: 15:21:21 Hydrochloric Area Supervisor: NIKKY MEASUREMENT RESULTS: Intervals: Rate: 86 LA: 184 QRSD: 100 QT: 382 QTc: 457 Fraser: P: 76 LA: 184 QRS: 43 T: 106 INTERPRETIVE STATEMENTS: Normal sinus rhythm ST & T wave abnormality, consider lateral ischemia Abnormal ECG Compared to ECG 07/25/2022 23:36:43 ST (T wave) deviation now present Possible ischemia now present T-wave abnormality no longer present Electronically Signed On 08-14-22 14:21:26 INTERVENTIONAL TECH by Hola Cabrera
[2022-08-14] MEDS: Meropenem 1,000 MG in NA CHLORIDE 0.9% 100 ML IV SCH (17:00)
[2022-08-14] MEDS: VANCOMYCIN 2 GM in NA CHLORIDE 0.9% 500 ML IVPB SCH (17:12)
--- NOTE | 2022-08-14 17:24 | RAD REPORT ---
EXAM DESCRIPTION: US - Lower Extremity Arterial Bilat - 08/14/2022 2:07 pm CLINICAL HISTORY: Leg pain COMPARISON: None FINDINGS: Color Doppler, grayscale, and spectral analysis was performed. The common femoral, superficial femoral and popliteal arteries bilaterally demonstrate triphasic wave forms The posterior tibial and dorsalis pedis arteries demonstrate triphasic and/or biphasic waveforms bila terally. Popliteal fossa cyst on the left. IMPRESSION: No flow limiting stenosis within either lower extremity.
[2022-08-14] MEDS ORDERED: VANCOMYCIN 1.5 GM in NA CHLORIDE 0.9% 250 ML IVPB SCH (18:00)
[2022-08-14] MEDS: SPIRONOLACTONE 25 MG TABLET PO SCH (21:07)
[2022-08-15] MEDS: HYDROCODONE/APAP 5/325 MG TAB PO PRN ×3 (01:14→15:34)
[2022-08-15] MEDS: Meropenem 1,000 MG in NA CHLORIDE 0.9% 100 ML IV SCH ×3 (01:14→15:35)
[2022-08-15] MEDS: ALBUTEROL 2.5 MG/3 ML NEB SOL NEB SCH ×4 (01:40→19:20)
[2022-08-15] MEDS: IPRATROPIUM BROM 0.5MG/2.5ML NEB SCH ×4 (01:40→19:20)
[2022-08-15 06:48] LABS: Absolute Lymphocytes (CBC) 1.1 K/uL (0.7-4.9); Lymphocytes % 22.1 % (15.3-44.8); MCV 70.9 fL (80-100); MPV 8.7 fL (7.6-11.3); RBC Red Blood Cell Count 3.67 M/uL (3.86-4.86)
[2022-08-15 06:57] LABS: Protime INR 1.15
--- NOTE | 2022-08-15 07:28 | P.PN ---
Subjective Date of Service: 08/14/22 had a long conversation with General surgery and they were concerned with severe peripheral arterial disease as patient with his continued to worsen with IV antibiotic therapy. Unsure as the patient is getting proper dosing of antibiotics. Wanting it to be done at an LTAC facility. Patient may need below -knee amputation if wound is not healing. Consult to Cardiology and arterial Doppler ordered. Appreciate wound care input. Review of Systems 10-point ROS is otherwise unremarkable Physical Examination - Vital Signs Temperature: 96.9 F Blood Pressure: 151/67 Pulse: 86 Respirations: 18 Pulse Ox (%): 93 - Physical Exam General: Alert, In no apparent distress HEENT: Atraumatic, PERRLA, EOMI Neck: Supple, JVD not distended Respiratory: Clear to auscultation bilaterally, Normal air movement Cardiovascular: Regular rate/rhythm, Normal S1 S2 Gastrointestinal: Normal bowel sounds, No tenderness Musculoskeletal: No tenderness Integumentary: No rashes Neurological: Normal speech, Normal tone, Normal affect Lymphatics: No axilla or inguinal lymphadenopathy - Studies Medications List Reviewed: Yes Assessment & Plan - Problems (Diagnosis) (1) Peripheral arterial disease Current Visit: Yes Status: Acute (2) Osteomyelitis of foot, left, acute Current Visit: No Status: Acute (3) Type 2 diabetes mellitus with foot ulcer Current Visit: No Status: Acute (4) Type 2 diabetes mellitus without complications Current Visit: No Status: Acute - Plan 1. Continue with IV antibiotic 2. Continue with local wound care 3. Wound care consultation/surgical consultation 4. Gentle IV hydration 5. Monitor CBC 6. Strict blood sugar monitoring 7. Pain control 8. GI and DVT prophylaxis - Advance Directives Does patient have a Living Will: No Does patient have a Durable POA for Healthcare: No Physician Review: Patient Assessed, Agree with Above Assessment and Plan
[2022-08-15] MEDS: INSULIN -REGULAR HUMAN 50 UNIT/0.5 ML ML SQ SCH ×4 (07:30→21:00)
[2022-08-15 07:34] LABS: Magnesium 2.4 mg/dL (1.6-2.4); Potassium 3.4 mmol/L (3.5-5.1)
[2022-08-15] MEDS: lisinopriL 20 MG TAB PO SCH (08:26)
[2022-08-15] MEDS: VENLAFAXINE HCL XR 75 MG CAP PO SCH (08:26)
[2022-08-15] MEDS: ASPIRIN 325 MG TAB PO SCH (08:26)
[2022-08-15] MEDS: HEPARIN 5000 UNIT/ML 1 ML VIAL SQ SCH ×2 (08:26→21:41)
[2022-08-15] MEDS: NIFEDIPINE XL 30 MG TABLET PO SCH ×2 (08:26→21:40)
[2022-08-15] MEDS: HOME MED 1 EA UNK (Fish Oil/Dha/Epa [Fish Oil 1,200 Mg Fish Oil] Capsule) PO SCH (08:27)
[2022-08-15] MEDS: SPIRONOLACTONE 25 MG TABLET PO SCH ×2 (08:27→21:41)
[2022-08-15] MEDS: COLLAGENASE 30 GM OINTMENT TOP SCH (08:27)
[2022-08-15] MEDS: COLLAGENASE TOP SCH (09:00)
[2022-08-15] MEDS: MUPIROCIN TOP SCH ×3 (09:00→21:00)
[2022-08-15] MEDS: METHYLCELLULOSE PO SCH (09:00)
[2022-08-15] MEDS: [UNRECOGNIZED DRUG - OTHER] PO SCH (09:00)
[2022-08-15] MEDS ORDERED: POTASSIUM CL SA 10 MEQ TAB PO ONE (09:32)
--- NOTE | 2022-08-15 10:45 | P.PN ---
Nephrology note (S) Pt reports some anxiety this AM. Dyspnea stable, has some Lt foot/leg pain, apprehensive about MRI scan. (O) Vitals reviewed in the EMR General: In no apparent distress, Cooperative HEENT: Atraumatic, Normocephalic, PERRLA, NC present Neck: Supple Respiratory: Normal air movement, Diminished at bases Cardiovascular: Regular rate/rhythm, Normal S1 S2 Gastrointestinal: Soft and benign, Non-distended, No tenderness, No rebound Musculoskeletal: No contractures, Other (Lt foot dressed) Integumentary: Other (Did not examine left foot wound, see notes by the primary team for details) Neurological: Normal speech, Normal tone, Normal affect Laboratory Data (last 24 hrs) Reviewed in the EMR Conclusions/Impression: A/P) 1. Abnormal results of kidney function studies 2. Stage 1 ESPERANZA -resolved 3. Hypokalemia -improving 4. Hypophosphatemia 5. Dyspnea, mild hypoxia 6. Chronic, active use of NSAIDs 7. Chronic HTN 8. Abnormality of albumin 9. Proteinuria unspecified -Pt's labs on admission showed Stage 1 ESPERANZA in c/w prior labs which have shown Cr levels more within normal limits. Pt was taking a large dose of loop diuretic and likely had some intravascular vol depletion, compounded by concurrent use of NSAIDs, max dose ACEi, other. -Cr level lower on repeat checks, cont to hold NSAIDs, monitor Vanc levels. Did ACEi at lower dose as BP mod elevated but did suspend loop diuretics at least temp given low K levels on admission -Hypokalemia, severe on admission 2nd to chronic loop diuretic use, possible diarrhea and likely poor PO intake as phos was also low. S/p KCL doses, Mg level ok. Holding Lasix temp, if restarted, would use far lower dose. Restarted ACEi and Spironolactone, latter dose has been titrated -Dyspnea, hypoxia likely multifactorial. Underlying COPD per report. CXR noted. Held off on IVF admin. Resp status stable. -Check spot urine study. -Trend BP, target BP < 140/90 -Microcytic anemia, likely iron deficiency, f/u studies and start on supplementation. Pt on ASA therapy, consider checking FOBT Pete Remy MD, KATHRIN
[2022-08-15] MEDS: LABETALOL 20 MG/4ML SYRINGE IV PRN (15:34)
[2022-08-15 17:20] LABS: Potassium 3.6 mmol/L (3.5-5.1)
[2022-08-15] MEDS: VANCOMYCIN 2 GM in NA CHLORIDE 0.9% 500 ML IVPB SCH (17:59)
--- NOTE | 2022-08-15 19:10 | CON ---
Date of Consultation: 08/15/2022 Reason For Consultation: Left foot diabetic infected ulcer. History Of Present Illness: This is the case of a 62-year-old patient known to us in the last few we eks due to diabetic left foot ulcer that required for serial debridements including OR debridement un carmina anesthesia. She went home she did not want to go to LTAC and her is doing dressing benavides es, but it is still not want in that area. She [facility], that we asked her to go, to see if there is any way of revascularization of that region to impro ve in her condition, but once again, she has an exacerbation of COPD and she was admitted to the hosp ital and a surgical consult was obtained. We have [facility]. Allergies: SULFA, TETRACYCLINE. Medications: Reviewed. Past Medical History: Pancreatitis, diabetes, depression, anxiety, glaucoma, COPD. Past Surgical History: Include cholecystectomy, , hysterectomy. Review of Systems: Shortness of breath and see H and P. Family History: Heart disease and diabetes. Social History: She does not smoke. 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 Physical Examination: General: The patient is awake, alert. HEENT: Pupils anicteric. Chest: Bilateral breath sounds. Wheezing present. Abdomen: Soft and depressible. Integumentary: Shows left foot calcaneus infected diabetic ulcer. There is still some tissue that i s still delineating and we did not see any good healthy granulation tissue yet. Left foot x-ray shows no bone destruction. MRI may have to be done to rule out osteomyelitis. Plan: Obviously, off-loading. We recommended multipodus offloading boots. Obviously, diabetes cont rol. Continue the enzymatic debrider. We are going to continue with tibial debridement, but unless we have control of the infection and control of the blood supply, then, we are all going to be doing just debridement until we have to do a below-knee amputation, which she does not want at this moment. So, continue with that workup. I will follow the patient with you and give more recommendations as the case develops. HM/MODL Voice ID: [id number] Report ID: [id number]
--- NOTE | 2022-08-15 20:18 | PN ---
Subjective: Patient lying in bed. Denies any headache, nausea, vomiting, chest pain, abdominal pain , constipation, or diarrhea. Objective: Vital Signs: Temperature 98, pulse 108, respirations 17, blood pressure 186/76. Lungs: Basal crackles. Heart: S1, S2. Regular. Abdomen: Soft, nontender. Bowel sounds present. Extremities: Trace edema. Laboratory Data: Reviewed. Patient currently on meropenem and vancomycin. Assessment And Plan: Left heel wound, currently on meropenem and vancomycin. Altered mental status. Anemia of chronic disease. Diabetes mellitus. Diabetic neuropathy. Morbid obesity. Moderate pro tein-calorie malnourishment. We will follow patient closely. NF/MODL Voice ID: [id number] Report ID: [id number]
[2022-08-16] MEDS: Meropenem 1,000 MG in NA CHLORIDE 0.9% 100 ML IV SCH ×3 (00:57→17:36)
[2022-08-16] MEDS: HYDROCODONE/APAP 5/325 MG TAB PO PRN ×3 (01:07→21:18)
[2022-08-16] MEDS: ALBUTEROL 2.5 MG/3 ML NEB SOL NEB SCH ×4 (01:45→19:35)
[2022-08-16] MEDS: IPRATROPIUM BROM 0.5MG/2.5ML NEB SCH ×4 (01:45→19:35)
[2022-08-16] MEDS: INSULIN -REGULAR HUMAN 50 UNIT/0.5 ML ML SQ SCH ×4 (07:30→21:14)
[2022-08-16] MEDS: COLLAGENASE TOP SCH (09:00)
[2022-08-16] MEDS: METHYLCELLULOSE PO SCH (09:00)
[2022-08-16] MEDS: HOME MED 1 EA UNK (Fish Oil/Dha/Epa [Fish Oil 1,200 Mg Fish Oil] Capsule) PO SCH (09:00)
[2022-08-16] MEDS: MUPIROCIN TOP SCH ×3 (09:00→21:00)
[2022-08-16] MEDS: [UNRECOGNIZED DRUG - OTHER] PO SCH (09:00)
[2022-08-16] MEDS: lisinopriL 20 MG TAB PO SCH (09:41)
[2022-08-16] MEDS: HEPARIN 5000 UNIT/ML 1 ML VIAL SQ SCH ×2 (09:42→21:13)
[2022-08-16] MEDS: ASPIRIN 325 MG TAB PO SCH (09:42)
[2022-08-16] MEDS: VENLAFAXINE HCL XR 75 MG CAP PO SCH (09:42)
[2022-08-16] MEDS: NIFEDIPINE XL 30 MG TABLET PO SCH ×2 (09:42→21:13)
[2022-08-16] MEDS: SPIRONOLACTONE 25 MG TABLET PO SCH ×2 (09:42→21:13)
[2022-08-16] MEDS: COLLAGENASE 30 GM OINTMENT TOP SCH (09:44)
[2022-08-16] MEDS ORDERED: POTASSIUM CL SA 10 MEQ TAB PO ONE (11:38)
[2022-08-16] MEDS: FUROSEMIDE 20 MG TABLET PO SCH (12:25)
--- NOTE | 2022-08-16 16:59 | PN ---
Subjective: The patient is alert, awake. She is using some oxygen. States that she has a history o f breathing problems with COPD. Has been told by her doctor that she does not have any heart problem s, but did come when pulmonary edema has been on Lasix before. States that she has been on 80 mg of b.i.d. Lasix, but then got dehydrated before Lasix had to be stopped, but then when Lasix was stopped , she had fluid in her lungs. She is currently looking somewhat comfortable. She is requiring oxyge n to breathe. She does have quite a bit of swelling. Has a wound on her left lower extremity that i s cleanly dressed. The patient is awaiting further debridement of this wound. Has IV on the left si de with a peripheral PICC line. The patient's is with her, who states that they have been gi ving her antibiotics, cefepime and vancomycin at home as instructed by her foot surgeon, Dr. Ledesma and also through Dr. Witt, who is her primary care physician. The patient is currently looking co mfortable. Objective: Vital Signs/General: Blood pressures are slightly on the higher side with last blood pre ssure 161/75, before that 144/71, before that 186/76, before that 151/67. Her pulse is about 90 and regular. Her respirations are around 14-16, but comfortable at rest. Temperature is afebrile at 98. 2. The patient does complain of some generic diffuse discomfort in her inner joints. Pain level is about 4. On last check, O2 sats are about 95% with 2 L of nasal cannula. Last glucose level was 130 . Lungs: Reveal some crackles at the bases. She does have some wheezing that improves with cough. Abdomen: Soft. Extremities: Reveal significant edema bilaterally, mostly nonpitting. She does have left lower extr emity wound and her foot is cleanly dressed. Laboratory Data: Reviewed. WBC count was 5.1 yesterday, hemoglobin 8.4, hematocrit 26, platelet cou nt of 436. Chemistry shows sodium of 141, potassium 3.4, chloride 105, bicarb is 29, BUN is 24, crea tinine is 1.04. Glucose level was 154 on the labs yesterday. Calcium was 7.5. Assessment And Plan: The patient with some acute kidney injury, which is now improving; history of c hronic obstructive pulmonary disease, question congestive heart failure requiring diuretics. Has bee n volume overloaded and then volume depleted in the past requiring admissions. The patient is curren tly off Lasix, but now seems to be getting mildly short of breath. Does have some crackles at the ba ses of her lungs, so this also could be from her chronic obstructive pulmonary disease, which is her baseline condition. Her potassium is a bit low despite the fact that she is on lisinopril, has been on spironolactone. She is not currently on any Lasix. Her calcium is slightly on the lower side. H er last calcium here was 7.7. Plan: We will start the patient on low-dose Lasix at 20 mg p.o. daily. We will give her 1 dose of p otassium at about 10 mEq. We will start her on vitamin D daily. We will increase her lisinopril to 30 mg once daily. Her potassium is on the lower side, but increasing the lisinopril, giving a low-do se potassium while we are giving her Lasix should hopefully balance this out. We will check a BMP le iraida, a CBC level, and also her calcium level tomorrow. Further treatment based on labs going forward and also management of her blood pressure. As her volume corrects, the blood pressure should also i mprove. She is currently running in about 140-160 systolic blood pressure. Increasing the lisinopri l and adding the Lasix should help with this. I have discussed this in detail with the patient and er , who are in agreement. /QAMAR Voice ID: [id number] Report ID: [id number]
[2022-08-16] MEDS: VANCOMYCIN 2 GM in NA CHLORIDE 0.9% 500 ML IVPB SCH (17:36)
--- NOTE | 2022-08-16 20:41 | PN ---
Subjective: The patient lying in bed. Denies any headache, nausea, vomiting, chest pain, abdominal pain, constipation, or diarrhea. Objective: Vital Signs: Temperature 99, pulse 100, respirations 20, blood pressure 166/73. Lungs: Basal crackles. Heart: S1, S2. Regular. Abdomen: Soft, nontender. Bowel sounds present. Extremities: Left foot wound noted, left leg edema and warmth has decreased. Laboratory Data: Reviewed. Assessment And Plan: 1.Left lower extremity cellulitis, diabetic foot ulcer in the left foot, status post debridement. 2.Anemia of chronic disease. 3.Diabetic neuropathy and diabetes mellitus. 4.Morbid obesity. 5.Moderate protein-calorie malnourished. Continue supportive care and keep legs elevated when possi ble. NF/MODL Voice ID: [id number] Report ID: [id number]
[2022-08-17] MEDS: Meropenem 1,000 MG in NA CHLORIDE 0.9% 100 ML IV SCH ×3 (00:18→17:52)
[2022-08-17] MEDS: ALBUTEROL 2.5 MG/3 ML NEB SOL NEB SCH ×4 (01:45→19:05)
[2022-08-17] MEDS: IPRATROPIUM BROM 0.5MG/2.5ML NEB SCH ×4 (01:45→19:05)
[2022-08-17] MEDS: ACETAMINOPHEN 325 MG TABLET PO PRN (06:53)
[2022-08-17] MEDS: INSULIN -REGULAR HUMAN 50 UNIT/0.5 ML ML SQ SCH ×4 (07:30→20:08)
[2022-08-17] MEDS: ASPIRIN 325 MG TAB PO SCH (08:08)
[2022-08-17] MEDS: HEPARIN 5000 UNIT/ML 1 ML VIAL SQ SCH ×2 (08:08→20:07)
[2022-08-17] MEDS: FUROSEMIDE 20 MG TABLET PO SCH (08:08)
[2022-08-17] MEDS: NIFEDIPINE XL 30 MG TABLET PO SCH ×2 (08:08→20:06)
[2022-08-17] MEDS: SPIRONOLACTONE 25 MG TABLET PO SCH ×2 (08:08→20:06)
[2022-08-17] MEDS: lisinopriL 20 MG TAB PO SCH (08:08)
[2022-08-17] MEDS: VENLAFAXINE HCL XR 75 MG CAP PO SCH (08:08)
[2022-08-17] MEDS: COLLAGENASE TOP SCH (08:09)
[2022-08-17] MEDS: MUPIROCIN TOP SCH ×3 (08:09→20:08)
[2022-08-17] MEDS: COLLAGENASE 30 GM OINTMENT TOP SCH (08:09)
[2022-08-17] MEDS: [UNRECOGNIZED DRUG - OTHER] PO SCH (08:09)
[2022-08-17] MEDS: METHYLCELLULOSE PO SCH (08:09)
[2022-08-17] MEDS: HOME MED 1 EA UNK (Fish Oil/Dha/Epa [Fish Oil 1,200 Mg Fish Oil] Capsule) PO SCH (08:09)
[2022-08-17] MEDS ORDERED: ALTEPLASE 2 MG/VIAL IV SCH (09:00)
[2022-08-17] MEDS ORDERED: lisinopriL 10 MG TAB PO SCH (09:00)
[2022-08-17] MEDS: VITAMIN D 5,000 UNIT CAP PO SCH (12:01)
[2022-08-17] MEDS: VANCOMYCIN 2 GM in NA CHLORIDE 0.9% 500 ML IVPB SCH (17:52)
--- NOTE | 2022-08-17 18:25 | P.PN ---
Date of Service: 08/15/22 Subjective Arterial Doppler pending today. Cardiology consultation pending. Patient will also need surgery and infectious disease input. Patient may need debridement of the foot. We are waiting to see the arterial Doppler shows as well. Spoke with general surgery and this will probably need to get done Thursday per Dr. Ledesma. Physical Examination - Vital Signs Reviewed - Physical Exam General: Alert, In no apparent distress Respiratory: Diminished bibasilar Cardiovascular: Regular rate/rhythm, Normal S1 S2 Gastrointestinal: Normal bowel sounds, No tenderness Musculoskeletal: No tenderness Integumentary: Wound to the left side of the foot and heel which appears to be open and with significant drainage Neurological: No focal deficits Assessment & Plan - Problems (Diagnosis) (1) COPD exacerbation Current Visit: Yes Status: Acute (2) Osteomyelitis of foot, left, acute Current Visit: No Status: Acute (3) Type 2 diabetes mellitus with foot ulcer Current Visit: No Status: Acute (4) Obesity hypoventilation syndrome Current Visit: No Status: Acute - Plan Continue with plan of care as mentioned below: 1. Continue with IV antibiotic 2. Continue with local wound care 3. Wound care consultation/surgical consultation appreciated 4. Heplock IV 5. Monitor CBC 6. Strict BS monitoring 7. Pain control 8. Plan to go to OR 08/18 9. GI and DVT prophylaxis
--- NOTE | 2022-08-17 18:27 | P.PN ---
Date of Service: 08/16/22 Subjective Spoke with cardiology. We had arterial Doppler which did not reveal any significant lesions. Blood sugars are stable today. Plan for surgery on Thursday per general surgery. Physical Examination - Vital Signs Reviewed - Physical Exam General: Alert, In no apparent distress Respiratory: Diminished bibasilar Cardiovascular: Regular rate/rhythm, Normal S1 S2 Gastrointestinal: Normal bowel sounds, No tenderness Musculoskeletal: No tenderness Integumentary: Wound to the left side of the foot and heel which appears to be open and with significant drainage Neurological: No focal deficits Assessment & Plan - Problems (Diagnosis) (1) COPD exacerbation Current Visit: Yes Status: Acute (2) Osteomyelitis of foot, left, acute Current Visit: No Status: Acute (3) Type 2 diabetes mellitus with foot ulcer Current Visit: No Status: Acute (4) Obesity hypoventilation syndrome Current Visit: No Status: Acute - Plan Continue with plan of care as mentioned below: 1. Continue with IV antibiotic 2. Continue with local wound care 3. Wound care consultation/surgical consultation appreciated 4. Heplock IV 5. Continue with BiPAP support 6. Strict BS monitoring 7. Pain control 8. Plan to go to OR 08/18 for debridement; continue with IV antibiotics x6 weeks 9. GI and DVT prophylaxis
--- NOTE | 2022-08-17 18:31 | P.PN ---
Date of Service: 08/17/22 Subjective Pt is a 62-year-old female who has a history of diabetic foot wound with osteomyelitis that has developed with her not taking good care of it. Patient has been following up with Dr. Ledesma and he has debrided the wound on multiple occasions. Patient was discharged with IV antibiotics and the wound continues to worsen. Dr. Ledesma was concerned that patient had significant femoral arterial disease. Arterial Doppler was negative so it does appear that patient may have small vessel disease that is causing progression of the wound. No further cardiac intervention is necessary at this time. Dr. Ledesma will try to debride the wound. Patient should go to a group home facility but he has been refuses for her to go to group home and he wants to take care of this at home. Go ahead and do the debridement and monitor patient over the next few days and make sure the wound is healing. At that point patient should be able to discharge if there is continued improvement. Physical Examination - Vital Signs Reviewed - Physical Exam General: Alert, In no apparent distress Respiratory: Diminished bibasilar Cardiovascular: Regular rate/rhythm, Normal S1 S2 Gastrointestinal: Normal bowel sounds, No tenderness Musculoskeletal: No tenderness Integumentary: Wound to the left side of the foot and heel which appears to be open and with drainage Neurological: No focal deficits Assessment & Plan - Problems (Diagnosis) (1) COPD exacerbation Current Visit: Yes Status: Acute (2) Osteomyelitis of foot, left, acute Current Visit: No Status: Acute (3) Type 2 diabetes mellitus with foot ulcer Current Visit: No Status: Acute (4) Obesity hypoventilation syndrome Current Visit: No Status: Acute - Plan Continue with plan of care as mentioned below: 1. Continue with IV antibiotic; PICC line placement 2. Continue with local wound care to the left foot 3. Wound care consultation/surgical consultation appreciated 4. Heplock IV 5. Continue with BiPAP support while asleep 6. Strict BS monitoring 7. Pain control 8. Plan to go to OR in AM, /16 for debridement; continue with IV antibiotics x6 weeks 9. GI and DVT prophylaxis
--- NOTE | 2022-08-17 18:44 | CON ---
Date of Consultation: 08/15/2022 Reason For Consultation: Peripheral arterial disease, cellulitis, and left foot nonhealing wound. History Of Present Illness: The patient is 62. History of diabetes, hypertension, COPD, comes in wi th cellulitis. Arterial Doppler, however, was negative with triphasic flow all the way from the comm on iliacs down to the posterior, tibial, and dorsalis pedis. The patient has been seen by Surgery. He is on antibiotics. No cardiac complaint. Past Medical History: As stated above. Also includes a history of diastolic congestive heart failur e. Allergies: HE IS ALLERGIC TO SULFA. Review of Systems: Negative. Social History: Negative. Family History: Negative. Medications: Present medications include aspirin, Lasix, heparin, insulin, labetalol, antibiotics, n ifedipine, Aldactone, and lisinopril. Physical Examination: Vital Signs: Stable, afebrile, sinus rhythm. HEENT: Negative. Neck: Supple with no bruit. Chest: Clear. Cardiac: Revealed a regular rhythm and rate. No murmurs, gallops, or rubs. Abdomen: Benign. Extremity: Revealed no clubbing, cyanosis. Has cellulitis and nonhealing wound on the left foot. Diagnostic Data: Includes arterial Doppler that was negative. Potassium was 3.4. Hemoglobin was 7. 7. His creatinine was 1.04. Impression And Plan: Peripheral arterial disease, probably secondary to small vessel disease from di abetes. The patient is presently on antibiotics. He is on the regimen regarding his diabetes, he is on insulin. He is on Lasix. He is on labetalol, Aldactone, lisinopril, heparin, and aspirin for hi s blood pressure. The patient is not a candidate for angiography. There is no stenosis in the large vessel. He has triphasic flow all the way down to the toes. He may need some blood transfusions, m ay need his potassium supplemented. I would consider baby aspirin in addition to his regimen and als o consider low-dose Xarelto 2.5 mg daily. We will sign off his case for now. We will be happy to se e him as an outpatient. NAOMI/QAMAR Voice ID: [id number] Report ID: [id number]
[2022-08-18] MEDS: LABETALOL 20 MG/4ML SYRINGE IV PRN ×3 (00:08→20:13)
[2022-08-18] MEDS: Meropenem 1,000 MG in NA CHLORIDE 0.9% 100 ML IV SCH ×3 (00:09→15:59)
[2022-08-18] MEDS: IPRATROPIUM BROM 0.5MG/2.5ML NEB SCH ×4 (01:10→20:20)
[2022-08-18] MEDS: ALBUTEROL 2.5 MG/3 ML NEB SOL NEB SCH ×4 (01:10→20:20)
[2022-08-18] MEDS: HYDROCODONE/APAP 5/325 MG TAB PO PRN (02:51)
[2022-08-18 04:32] LABS: Hematocrit 24.1 % (36.0-45.0); Lymphocytes % 24.4 % (15.3-44.8); MCV 71.7 fL (80-100); MPV 7.9 fL (7.6-11.3); RBC Red Blood Cell Count 3.35 M/uL (3.86-4.86)
[2022-08-18 04:50] LABS: Albumin 2.2 g/dL (3.4-5.0); Bilirubin Total 0.6 mg/dL (0.2-1.0); Magnesium 2.3 mg/dL (1.6-2.4); Phosphorus 2.2 mg/dL (2.5-4.9); Potassium 3.6 mmol/L (3.5-5.1)
[2022-08-18] MEDS: INSULIN -REGULAR HUMAN 50 UNIT/0.5 ML ML SQ SCH ×4 (07:30→20:12)
[2022-08-18] MEDS ORDERED: BUPIVACAINE 0.5% PF 10 ML VIAL ONE (07:46)
[2022-08-18] MEDS ORDERED: NA CHLORIDE 0.9% 1,000 ML ONE (07:58)
[2022-08-18] MEDS ORDERED: KCL 20 MEQ/100 mL IVPB 20 MEQ/100 ML BAG IV SCH (08:00)
[2022-08-18] MEDS ORDERED: LIDOCAINE 2% MPF 5 ML VIAL ONE (08:22)
[2022-08-18] MEDS ORDERED: propofoL 200 MG/20 ML VIAL IV ONE (08:22)
[2022-08-18] MEDS ORDERED: KETOROLAC 30 MG/ML INJ ONE (08:43)
[2022-08-18] MEDS: SPIRONOLACTONE 25 MG TABLET PO SCH ×2 (09:00→20:12)
[2022-08-18] MEDS: MUPIROCIN TOP SCH ×3 (09:00→20:03)
[2022-08-18] MEDS ORDERED: ALTEPLASE 2 MG/VIAL IV SCH (09:00)
[2022-08-18] MEDS: VENLAFAXINE HCL XR 75 MG CAP PO SCH ×2 (09:00→15:59)
[2022-08-18] MEDS: COLLAGENASE TOP SCH (09:00)
[2022-08-18] MEDS: FUROSEMIDE 20 MG TABLET PO SCH (09:00)
[2022-08-18] MEDS: NIFEDIPINE XL 30 MG TABLET PO SCH ×2 (09:00→20:12)
[2022-08-18] MEDS: METHYLCELLULOSE PO SCH (09:00)
[2022-08-18] MEDS: [UNRECOGNIZED DRUG - OTHER] PO SCH (09:00)
[2022-08-18] MEDS: lisinopriL 20 MG TAB PO SCH (09:00)
[2022-08-18] MEDS: VITAMIN D 5,000 UNIT CAP PO SCH (09:00)
[2022-08-18] MEDS: HEPARIN 5000 UNIT/ML 1 ML VIAL SQ SCH ×2 (09:00→20:12)
[2022-08-18] MEDS ORDERED: POTASSIUM PHOS 22 MEQ in NA CHLORIDE 0.9% 250 ML IV ONE (09:00)
[2022-08-18] MEDS: COLLAGENASE 30 GM OINTMENT TOP SCH (09:00)
[2022-08-18] MEDS: HOME MED 1 EA UNK (Fish Oil/Dha/Epa [Fish Oil 1,200 Mg Fish Oil] Capsule) PO SCH (09:00)
[2022-08-18] MEDS: ASPIRIN 325 MG TAB PO SCH (09:00)
[2022-08-18] MEDS ORDERED: VANCOMYCIN 2 GM in NA CHLORIDE 0.9% 500 ML IVPB SCH (09:00)
--- NOTE | 2022-08-18 09:13 | P.BOP ---
Preoperative diagnosis: Left heel infected necrotic diabetic ulcer Postoperative diagnosis: same Primary procedure: Excisional debridement Left heel infected necrotic diabetic ulcer [id number] Estimated blood loss: <10cc Specimen: none Findings: as above, bone very close Anesthesia: General Complications: None Transferred to: Recovery Room Condition: Good
[2022-08-18] MEDS: VANCOMYCIN 2 GM in NA CHLORIDE 0.9% 500 ML IVPB SCH (09:36)
--- NOTE | 2022-08-18 10:12 | P.PN ---
Subjective Date of Service: 08/18/22 Chief Complaint: Left foot wound and AMS Patient lying in bed with at the bedside. No major events upon examination. Physical Examination - Vital Signs Temperature: 98.1 F Blood Pressure: 155/69 Pulse: 90 Respirations: 20 Pulse Ox (%): 93 - Physical Exam General: Alert, In no apparent distress, Oriented x3 Respiratory: Clear to auscultation bilaterally Cardiovascular: Normal pulses, Normal S1 S2 Gastrointestinal: Normal bowel sounds Musculoskeletal: No tenderness (left heel wound) Integumentary: Diabetic ulcer (left heel) Neurological: Normal speech, Normal tone - Studies Current Medications: Acetaminophen (Acetaminophen 325 Mg Tablet) 650 mg PO Q6H PRN PRN Reason: TEMP > 100.4' F Last Admin: 08/17/22 06:53 Dose: 650 mg Hydrocodone Bitart/Acetaminophen (Hydrocodone/Apap 5/325 Mg Tab) 1 tab PO Q6H PRN PRN Reason: Pain scale 5-7 (Moderate) Last Admin: 08/18/22 02:51 Dose: 1 tab Albuterol Sulfate (Albuterol 2.5 Mg/3 Ml Neb Jesika) 2.5 mg NEB [id number] [facility] Last Admin: 08/18/22 14:05 Dose: 2.5 mg Aspirin (Aspirin 325 Mg Tab) 325 mg PO DAILY [facility] Last Admin: 08/18/22 09:00 Dose: Not Given Cholecalciferol (Vitamin D 5,000 Unit Cap) 5,000 unit PO DAILY [facility] Stop: 08/23/22 09:01 Last Admin: 08/18/22 09:00 Dose: Not Given Collagenase (Collagenase 30 Gm Ointment) 1 appl TOP DAILY [facility] Last Admin: 08/18/22 09:00 Dose: Not Given Furosemide (Furosemide 20 Mg Tablet) 20 mg PO DAILY [facility] Last Admin: 08/18/22 09:00 Dose: Not Given Heparin Sodium (Porcine) (Heparin 5000 Unit/Ml 1 Ml Vial) 5,000 unit SQ Q12HR [facility] Last Admin: 08/18/22 20:12 Dose: 5,000 unit Home Med (Home Med 1 Ea Unk [Collagenase 30 Gm Ointment]) 1 ea TOP DAILY [facility] Last Admin: 08/18/22 09:00 Dose: Not Given Home Med (Fish Oil/Dha/Epa [Fish Oil 1,200 Mg Fish Oil]) 1 tab PO DAILY [facility] Last Admin: 08/18/22 09:00 Dose: Not Given Home Med (Methylcellulose (With Sugar) [Citrucel Powder]) 1 dose PO DAILY [facility] Last Admin: 08/18/22 09:00 Dose: Not Given Home Med (Mupirocin Cream) 1 dose TOP TID [facility] Last Admin: 08/18/22 20:03 Dose: Not Given Meropenem 1,000 mg/ Sodium (Chloride) 100 mls @ 200 mls/hr IV Q8HR [facility] Last Admin: 08/18/22 15:59 Dose: 100 mls Ferric Sodium Gluconate Complex 125 mg/ Sodium Chloride 110 mls @ 100 mls/hr IV DAILY [facility] Stop: 08/25/22 10:05 Last Admin: 08/18/22 10:37 Dose: 110 mls Vancomycin HCl 2 gm/ Sodium (Chloride) 500 mls @ 250 mls/hr IVPB Q36H [facility] Last Admin: 08/18/22 09:36 Dose: 500 mls Insulin Human Regular (Insulin -Regular Human 50 Unit/0.5 Ml Ml) 0 unit SQ ACHS [facility]; Protocol Last Admin: 08/18/22 20:12 Dose: 2 unit Ipratropium [place] (Ipratropium Brom 0.5mg/2.5ml) 0.5 mg NEB [id number] [facility] Last Admin: 08/18/22 14:05 Dose: 0.5 mg Labetalol HCl (Labetalol 20 Mg/4ml Syringe) 10 mg IV Q6H PRN PRN Reason: sbp Last Admin: 08/18/22 20:13 Dose: 10 mg Lisinopril (Lisinopril 20 Mg Tab) 30 mg PO DAILY [facility] Last Admin: 08/18/22 09:00 Dose: Not Given Nifedipine (Nifedipine Xl 30 Mg Tablet) 30 mg PO BID [facility] Last Admin: 08/18/22 20:12 Dose: 30 mg Ondansetron HCl (Ondansetron 4 Mg/2 Ml Vial) 4 mg IV Q6HP PRN PRN Reason: NAUSEA / VOMITING Prednisone (Prednisone 20 Mg Tab) 20 mg PO BID [facility] Stop: 08/23/22 13:26 Last Admin: 08/18/22 20:12 Dose: 20 mg Sodium Chloride (Flush Normal Saline 10 Ml) 10 ml IV BID [facility] Last Admin: 08/18/22 20:12 Dose: 10 ml Spironolactone (Spironolactone 25 Mg Tablet) 25 mg PO BID [facility] Last Admin: 08/18/22 20:12 Dose: 25 mg Venlafaxine HCl (Venlafaxine Hcl Xr 75 Mg Cap) 150 mg PO DAILY [facility] Last Admin: 08/18/22 15:59 Dose: 150 mg Medications List Reviewed: Yes Assessment And Plan - Current Problems (Diagnosis) (1) Open wound of left heel Current Visit: No Status: Acute Plan: Cultures: 08/13 BC: Negative 08/15 Wound left heel: Pseudomonas aeruginosa (Multi-drug Resistant) Imaging: - 08/13 Foot Xray: FINDINGS/IMPRESSION: No acute fracture. No malalignment. Mild plantar and dorsal aspect calcaneal spurring. The appearance of the calcaneus is similar to 07/23/2022. No definite evidence of osteomyelitis. MRI could confirm if clinically indicated. - 08/18 Dr. Ledesma performed excisional debridement of left heel infected necrotic diabetic ulcer Antibiotics: 08/13 Started IV Meropenem and Vancomycin Recommendation: 1. Continue current IV antibiotics Meropenem and Vancomycin 2. Elevated the affected leg to reduce edema and offload pressure ID will closely monitoring the patient for signs of infection with fever and WBC trends. - Plan - Left foot wound: Continue current IV antibiotics Meropenem and Vancomycin. - Acute pain - Acute encephalopathy. Unclear etiology. CT head unremarkable for any acute intracranial abnormality - Acute on chronic COPD exacerbation - Anemia of chronic disease: We will continue to monitor hemoglobin and transfuse if less than 7.0 - DM2 - Hypokalemia - ESPERANZA: Nephrology consulted - Hypertension Case has been discussed with Roselyn Dorsey Physician Review: Patient Assessed, Agree with Above Assessment and Plan
[2022-08-18] MEDS: SOD FERRIC GLUC COMPLX/SUCROSE 125 MG in NA CHLORIDE 0.9% 100 ML IV SCH (10:37)
--- NOTE | 2022-08-18 10:44 | OP ---
Date of Procedure: 08/18/2022 Surgeon: Minh Ledesma MD Preoperative Diagnosis: Left heel infected necrotic diabetic ulcer. Postoperative Diagnosis: Left heel infected necrotic diabetic ulcer. Procedure: Excisional debridement of left heel infected necrotic diabetic ulcer 12 x 11 x 2 cm. Estimated Blood Loss: Less than 10 cc. Specimen: Devitalized tissue. Finding: As above. Bone very close to the area of this wound. I believe clinically she has osteomy elitis. Anesthesia: General. Complications: None. Indication: This is a case of a female, who comes to us with multiple medical problems including a d ecubitus ulcer with infection, diabetes, exacerbation of COPD. She has to go [facility] for debridement. In the last few days, she was not feeling the same. So, we noticed the duratio n of her wounds, admitted to the hospital, and started on IV antibiotics and now scheduled for debrid ement. The benefits, alternatives, and risks of debridement were fully explained, which include, but not limited to infection, bleeding, damage to adjacent structures, anesthesia, complication, nonheal ing wound, MO, and even . She also understands this may not relieve the symptoms. She might ne ed more than one surgical intervention. She was scheduled for a vascular evaluation as an outpatient before she got admitted. We encouraged her to continue the same plan since we need to see if there are any revascularization options here. Procedure In Detail: Patient was brought to the operating room, placed in supine position. Anesthes ia was done without complication. Left heel was prepped and draped in a sterile fashion. Local anes thesia was applied followed by a debridement of the area with a sharp surgical blade. Area was irrig ated. Then, after that, we use pulse lavage. Patient tolerated the procedure well. Hemostasis was obtained with the Bovie cauterizer. Patient tolerated the procedure well. The area was covered with wet-to-dry dressing. HM/MODL Voice ID: [id number] Report ID: [id number]
--- NOTE | 2022-08-18 13:01 | P.PN ---
Subjective Date of Service: 08/18/22 Chief Complaint: Left foot wound and AMS No acute events overnight. She underwent excisional debridement of her left heel infected necrotic diabetic ulcer. She was seen on rounds post-operatively and she appeared to be doing well. She remains on 3 L nasal cannula and states that she is short of breath with minimal exertion. Will obtain home oxygen evaluation. Review of Systems 10-point ROS is otherwise unremarkable Respiratory: Shortness of Breath Integumentary: Other (diabetic foot ulcer [left]) Physical Examination - Vital Signs Temperature: 98.1 F Blood Pressure: 155/69 Pulse: 90 Respirations: 20 Pulse Ox (%): 93 - Physical Exam General: Alert, In no apparent distress, Oriented x3 HEENT: Atraumatic, Mucous membr. moist/pink, EOMI, Sclerae nonicteric Neck: JVD not distended Respiratory: Clear to auscultation bilaterally, Diminished Cardiovascular: No edema, Regular rate/rhythm, Normal S1 S2, No gallops, No rubs, No murmurs Gastrointestinal: Normal bowel sounds, Soft and benign, Non-distended, No tenderness, No rebound, No guarding Musculoskeletal: No clubbing Integumentary: Diabetic ulcer, Other (left foot covered in surgical dressing) Neurological: Normal speech, Normal affect - Studies Medications List Reviewed: Yes Assessment And Plan - Plan # Acute Chronic Obstructive Pulmonary Disease Exacerbation # SIRS Criteria (Tachypnea, Tachycardia) likely due to COPD Exacerbation No obvious trigger at this time. No evidence of infection. - Evaluation thus far: - Chest x-ray = "aeration of the lungs appears improved since 08/03/2022. 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 No malalignment. Mild plantar and dorsal aspect calcaneal spurring. The appearance of the calcaneus is similar to 07/23/2022. No definite evidence of osteomyelitis. MRI could confirm if clinically indicated." - Bilateral lower extremity arterial Doppler = "no flow limiting stenosis within either lower extremity." - General Surgery consulted and spoke with Dr. Ledesma - recommendations appreciated - 08/18/2022 - Excisional debridement Left heel infected necrotic diabetic ulcer - He has cleared for discharge once cleared by Dr. Ann - Wound care consulted - Infectious Diseases consulted and spoke with Dr. Ann - recommendations appreciated - PICC line placed - plan for 6 weeks of vancomycin + meropenem - He would like to re-assess the wound tomorrow prior to clearing her for discharge - Correction scale insulin # KDIGO Stage I Acute Kidney Injury (resolved) # Microscopic Hematuria - Nephrology consulted and she was evaluated by Dr. Remy - recommendations appreciated - Creatinine = 1.39 -> 1.41 -> 1.17 -> 1.04 -> 0.86 - Urinalysis = 2+ blood, 3+ protein - Monitor creatinine and urine output - If worsening, obtain renal ultrasound - Renally dose medications # Iron Deficiency Anemia - Continue IV iron replacement # Hypertension - Continue home lisinopril, nifedipine, spironolactone Wes Richard M.D.
[2022-08-18] MEDS: predniSONE 20 MG TAB PO SCH ×2 (14:16→20:12)
--- NOTE | 2022-08-18 17:50 | PN ---
Subjective: Seen by bedside. She had no new complaints. Review of Systems: No chest pain, shortness of breath, orthopnea, cough. No nausea, vomiting, diarrhea. No abdominal p ain. No dysuria, polyuria, or urinary urgency. All other systems reviewed and they were negative. Physical Examination: Vital Signs: Temperature is 97.7, pulse 71, breathing at 16, blood pressure 169/90, saturating 92% o n room air. General: Pleasant, middle-aged female, in no apparent distress. Head and Neck: Pupils are equal, reactive to light. Intact eye movements. No JVD. No cervical lym phadenopathy. Neck is supple. Thyroid is not enlarged. Lungs: Clear to auscultation bilaterally. No rhonchi, wheezing, or crackles. No accessory muscle u se. Heart: Regular rate and rhythm. No extra sounds. Abdomen: Soft, nontender. Bowel sounds positive. No organomegaly. No masses or hernia. No rigidi ty or rebound. Extremities: No clubbing or cyanosis. Intact pulses. Skin: No rash. Neurologic: Alert, awake. No acute focal deficits appreciated. Investigations: BUN 17, creatinine 0.86. Assessment And Recommendations: 1.Severe peripheral vascular disease. The wound is not healing. Plan for peripheral angiogram jeannine rrow morning, keep n.p.o. past midnight. 2.Infected foot ulcer on the left, status post debridement. Very sluggish blood flow to the area. Plan for peripheral angiogram tomorrow. We will continue current antibiotics. 3.Hypertension. Blood pressure is controlled. SR/MODL Voice ID: [id number] Report ID: [id number]
--- NOTE | 2022-08-18 21:14 | P.PN ---
Date of Service: 08/18/22 Vital Signs Temp Pulse Resp BP Pulse Ox 98.1 F 90 20 155/69 H 93 08/18/22 20:47 08/18/22 20:47 08/18/22 20:47 08/18/22 20:47 08/18/22 20:47 Medications Acetaminophen (Acetaminophen 325 Mg Tablet) 650 mg PO Q6H PRN PRN Reason: TEMP > 100.4' F Last Admin: 08/17/22 06:53 Dose: 650 mg Hydrocodone Bitart/Acetaminophen (Hydrocodone/Apap 5/325 Mg Tab) 1 tab PO Q6H PRN PRN Reason: Pain scale 5-7 (Moderate) Last Admin: 08/18/22 02:51 Dose: 1 tab Albuterol Sulfate (Albuterol 2.5 Mg/3 Ml Neb Jesika) 2.5 mg NEB [id number] [facility] Last Admin: 08/18/22 14:05 Dose: 2.5 mg Aspirin (Aspirin 325 Mg Tab) 325 mg PO DAILY [facility] Last Admin: 08/18/22 09:00 Dose: Not Given Cholecalciferol (Vitamin D 5,000 Unit Cap) 5,000 unit PO DAILY [facility] Stop: 08/23/22 09:01 Last Admin: 08/18/22 09:00 Dose: Not Given Collagenase (Collagenase 30 Gm Ointment) 1 appl TOP DAILY [facility] Last Admin: 08/18/22 09:00 Dose: Not Given Furosemide (Furosemide 20 Mg Tablet) 20 mg PO DAILY [facility] Last Admin: 08/18/22 09:00 Dose: Not Given Heparin Sodium (Porcine) (Heparin 5000 Unit/Ml 1 Ml Vial) 5,000 unit SQ Q12HR [facility] Last Admin: 08/18/22 20:12 Dose: 5,000 unit Home Med (Home Med 1 Ea Unk [Collagenase 30 Gm Ointment]) 1 ea TOP DAILY [facility] Last Admin: 08/18/22 09:00 Dose: Not Given Home Med (Fish Oil/Dha/Epa [Fish Oil 1,200 Mg Fish Oil]) 1 tab PO DAILY [facility] Last Admin: 08/18/22 09:00 Dose: Not Given Home Med (Methylcellulose (With Sugar) [Citrucel Powder]) 1 dose PO DAILY [facility] Last Admin: 08/18/22 09:00 Dose: Not Given Home Med (Mupirocin Cream) 1 dose TOP TID [facility] Last Admin: 08/18/22 20:03 Dose: Not Given Meropenem 1,000 mg/ Sodium (Chloride) 100 mls @ 200 mls/hr IV Q8HR [facility] Last Admin: 08/18/22 15:59 Dose: 100 mls Ferric Sodium Gluconate Complex 125 mg/ Sodium Chloride 110 mls @ 100 mls/hr IV DAILY [facility] Stop: 08/25/22 10:05 Last Admin: 08/18/22 10:37 Dose: 110 mls Vancomycin HCl 2 gm/ Sodium (Chloride) 500 mls @ 250 mls/hr IVPB Q36H [facility] Last Admin: 08/18/22 09:36 Dose: 500 mls Insulin Human Regular (Insulin -Regular Human 50 Unit/0.5 Ml Ml) 0 unit SQ ACHS [facility]; Protocol Last Admin: 08/18/22 20:12 Dose: 2 unit Ipratropium [place] (Ipratropium Brom 0.5mg/2.5ml) 0.5 mg NEB [id number] [facility] Last Admin: 08/18/22 14:05 Dose: 0.5 mg Labetalol HCl (Labetalol 20 Mg/4ml Syringe) 10 mg IV Q6H PRN PRN Reason: sbp Last Admin: 08/18/22 20:13 Dose: 10 mg Lisinopril (Lisinopril 20 Mg Tab) 30 mg PO DAILY [facility] Last Admin: 08/18/22 09:00 Dose: Not Given Nifedipine (Nifedipine Xl 30 Mg Tablet) 30 mg PO BID [facility] Last Admin: 08/18/22 20:12 Dose: 30 mg Ondansetron HCl (Ondansetron 4 Mg/2 Ml Vial) 4 mg IV Q6HP PRN PRN Reason: NAUSEA / VOMITING Prednisone (Prednisone 20 Mg Tab) 20 mg PO BID [facility] Stop: 08/23/22 13:26 Last Admin: 08/18/22 20:12 Dose: 20 mg Sodium Chloride (Flush Normal Saline 10 Ml) 10 ml IV BID [facility] Last Admin: 08/18/22 20:12 Dose: 10 ml Spironolactone (Spironolactone 25 Mg Tablet) 25 mg PO BID [facility] Last Admin: 08/18/22 20:12 Dose: 25 mg Venlafaxine HCl (Venlafaxine Hcl Xr 75 Mg Cap) 150 mg PO DAILY [facility] Last Admin: 08/18/22 15:59 Dose: 150 mg Microbiology Results 08/13/22 15:40 Blood - Blood Aerobic Blood Culture - Final No growth in 5 days. 08/13/22 15:40 Blood - Blood Anaerobic Blood Culture - Final No growth in 5 days. 08/13/22 14:55 Blood - Blood Aerobic Blood Culture - Final No growth in 5 days. 08/13/22 14:55 Blood - Blood Anaerobic Blood Culture - Final No growth in 5 days. Assessment/ Plan: Nephrology No dyspnea No chest pain No acute events overnight Vitals, medications, blood work and imaging reviewed in the chart. NAD. Obese. NCAT. MMM. Neck supple. Normal respiratory effort. RRR. Abd ND. No C/C/E. No rash. AAO. Normal speech. [place] Stage I ESPERANZA, resolved Proteinuria -No NSAIDs Hypokalemia -Replete prn HypoPO4 -Replete as ordered HTN with CKD/ CHF -Continue Lisinopril Diastolic CHF, A/C -Continue furosemide and spironolactone DM II with CKD & left foot ulcer -RISS Iron Deficiency Anemia -Agree with IV iron
[2022-08-19] MEDS: Meropenem 1,000 MG in NA CHLORIDE 0.9% 100 ML IV SCH ×3 (00:12→16:57)
[2022-08-19] MEDS: IPRATROPIUM BROM 0.5MG/2.5ML NEB SCH ×4 (01:45→19:35)
[2022-08-19] MEDS: ALBUTEROL 2.5 MG/3 ML NEB SOL NEB SCH ×4 (01:45→19:35)
[2022-08-19 03:45] LABS: Absolute Lymphocytes (CBC) 0.7 K/uL (0.7-4.9); Hematocrit 24.7 % (36.0-45.0); Lymphocytes % 24.9 % (15.3-44.8); MCV 71.3 fL (80-100); MPV 7.6 fL (7.6-11.3); RBC Red Blood Cell Count 3.46 M/uL (3.86-4.86)
[2022-08-19 04:05] LABS: Potassium 4.1 mmol/L (3.5-5.1)
[2022-08-19] MEDS: INSULIN -REGULAR HUMAN 50 UNIT/0.5 ML ML SQ SCH ×4 (07:30→21:15)
[2022-08-19] MEDS: SOD FERRIC GLUC COMPLX/SUCROSE 125 MG in NA CHLORIDE 0.9% 100 ML IV SCH (08:49)
[2022-08-19] MEDS: VENLAFAXINE HCL XR 75 MG CAP PO SCH (08:54)
[2022-08-19] MEDS: DRISDOL (VITAMIN D=ERGOCALCIFEROL) 50000 UNIT CAP PO SCH (08:54)
[2022-08-19] MEDS: METHYLCELLULOSE PO SCH (08:54)
[2022-08-19] MEDS: FUROSEMIDE 20 MG TABLET PO SCH (08:54)
[2022-08-19] MEDS: SPIRONOLACTONE 25 MG TABLET PO SCH ×2 (08:54→21:16)
[2022-08-19] MEDS: predniSONE 20 MG TAB PO SCH ×2 (08:54→21:14)
[2022-08-19] MEDS: COLLAGENASE TOP SCH (08:54)
[2022-08-19] MEDS: [UNRECOGNIZED DRUG - OTHER] PO SCH (08:54)
[2022-08-19] MEDS: ASPIRIN 325 MG TAB PO SCH (08:54)
[2022-08-19] MEDS: HOME MED 1 EA UNK (Fish Oil/Dha/Epa [Fish Oil 1,200 Mg Fish Oil] Capsule) PO SCH (08:54)
[2022-08-19] MEDS: NIFEDIPINE XL 30 MG TABLET PO SCH ×2 (08:55→21:15)
[2022-08-19] MEDS: VITAMIN D 5,000 UNIT CAP PO SCH (08:55)
[2022-08-19] MEDS: lisinopriL 20 MG TAB PO SCH (08:55)
[2022-08-19] MEDS: MUPIROCIN TOP SCH ×3 (08:55→21:00)
[2022-08-19] MEDS ORDERED: INFLUENZA VACCINE (for 6+ mo) 0.5 ML DOSE IMVAC ONE (15:00)
[2022-08-19] MEDS: COLLAGENASE 30 GM OINTMENT TOP SCH (15:15)
[2022-08-19] MEDS: FUROSEMIDE 40 MG/4 ML VIAL IV SCH (16:56)
[2022-08-19] MEDS: LABETALOL 20 MG/4ML SYRINGE IV PRN (16:58)
[2022-08-19] MEDS: HYDROCODONE/APAP 5/325 MG TAB PO PRN (17:06)
--- NOTE | 2022-08-19 17:33 | P.PN ---
Subjective Date of Service: 08/19/22 Chief Complaint: Left foot wound and AMS Patient lying in bed with at the bedside. Reported to ID that she wanted to go home because of home sick. Per , he preferred to have her treated than going home prematurely. No major events upon examination. Physical Examination - Vital Signs Temperature: 98.3 F Blood Pressure: 192/76 Pulse: 91 Respirations: 17 Pulse Ox (%): 93 - Physical Exam General: Alert, In no apparent distress, Oriented x3 Respiratory: Clear to auscultation bilaterally, Other (4 L of oxygen ) Cardiovascular: No edema, Normal pulses, Normal S1 S2 Gastrointestinal: Normal bowel sounds Musculoskeletal: Other (left heel diabetic ulcer) Integumentary: Diabetic ulcer (left heel) Neurological: Normal speech, Normal tone - Studies Microbiology Data (last 24 hrs): 08/13/22 15:40 Blood - Blood Aerobic Blood Culture - Final No growth in 5 days. 08/13/22 15:40 Blood - Blood Anaerobic Blood Culture - Final No growth in 5 days. 08/13/22 14:55 Blood - Blood Aerobic Blood Culture - Final No growth in 5 days. 08/13/22 14:55 Blood - Blood Anaerobic Blood Culture - Final No growth in 5 days. Medications List Reviewed: Yes Assessment And Plan - Current Problems (Diagnosis) (1) Open wound of left heel Current Visit: No Status: Acute Plan: Cultures: 08/13 BC: Negative 08/15 Wound left heel: Pseudomonas aeruginosa (Multi-drug Resistant) Imaging: - 08/13 Foot Xray: FINDINGS/IMPRESSION: No acute fracture. No malalignment. Mild plantar and dorsal aspect calcaneal spurring. The appearance of the calcaneus is similar to 07/23/2022. No definite evidence of osteomyelitis. MRI could confirm if clinically indicated. - 08/18 Dr. Ledesma performed excisional debridement of left heel infected necrotic diabetic ulcer Antibiotics: 08/13 Started IV Meropenem and Vancomycin Recommendation: 1. Continue current IV antibiotics Meropenem and Vancomycin for total of 6 weeks duration 2. Elevated the affected leg to reduce edema and offload pressure ID will closely monitoring the patient for signs of infection with fever and WBC trends. - Plan - Left foot wound: Continue current IV antibiotics Meropenem and Vancomycin for total of 6 weeks duration - Acute pain - Acute encephalopathy. Unclear etiology. CT head unremarkable for any acute intracranial abnormality - Acute on chronic COPD exacerbation - Anemia of chronic disease: We will continue to monitor hemoglobin and transfuse if less than 7.0 - DM2 - Hypokalemia - ESPERANZA: Nephrology consulted - Hypertension Case has been discussed with Dr. Ann N Physician Review: Patient Assessed, Agree with Above Assessment and Plan
--- NOTE | 2022-08-19 18:32 | PN ---
Date of Progress Note: 08/19/2022 Subjective: Seen by bedside. We are planning to do peripheral angiogram; however, she is having dif ficulty maintaining oxygen saturation, lying flat. Review of Systems: Has mild shortness of breath. No chest pain. No nausea, vomiting, or diarrhea. No dysuria, polyuri a, or urinary urgency. All other systems reviewed and they are negative. Physical Examination: Vital Signs: Temperature is 98.3, pulse 94, breathing 17, blood pressure 168/75, saturating 99% on r oom air. General: Pleasant, middle-aged female, in no apparent distress. Head and Neck: Pupils are equal, reactive to light. Intact eye movements. No JVD. No cervical lym phadenopathy. Neck: Supple. Thyroid is not enlarged. Lungs: Clear to auscultation bilaterally. No rhonchi, rales, or crackles. No accessory muscle use. Heart: Irregular. No extra sounds. Abdomen: Soft, nontender. Bowel sounds positive. No organomegaly. No masses or hernia. No rigidi ty or rebound. Extremities: Trace edema bilaterally. No clubbing, cyanosis. Intact pulses. Skin: No rash or nodules. Neurologic: Alert, awake, oriented x3. No acute focal deficits appreciated. Investigations: BUN is 17, creatinine 0.8, and hemoglobin is 8.1. Assessment And Recommendations: 1.Severe peripheral vascular disease with nonhealing ulcer of the foot. She needs peripheral angiog jesse; however, she could not lie flat. She becomes hypoxic. After 2 minutes, she drops into mid 80s. Recommend p.r.n. Lasix IV 40 mg evening dose today and reassess her status tomorrow and postpone e angiogram until her respiratory status is more controlled. 2.Hypertension. Blood pressure is elevated. She is likely slightly fluid overloaded. Continue Aldactone and switch the Lasix to IV and re-evaluate tomorrow morning. SR/MODL Voice ID: [id number] Report ID: [id number]
--- NOTE | 2022-08-19 19:04 | P.PN ---
Subjective Date of Service: 08/19/22 Chief Complaint: Left foot wound and AMS No acute events overnight. She states that her pain is well controlled. She has significant peripheral arterial disease. Per Dr. Cabrera, plan is for peripheral angiogram later today. Home oxygen is being arranged. Appreciate CM assistance. Review of Systems 10-point ROS is otherwise unremarkable Respiratory: Shortness of Breath Cardiovascular: Orthopnea Physical Examination - Vital Signs Temperature: 98.3 F Blood Pressure: 192/76 Pulse: 91 Respirations: 17 Pulse Ox (%): 93 - Studies Microbiology Data (last 24 hrs): 08/13/22 15:40 Blood - Blood Aerobic Blood Culture - Final No growth in 5 days. 08/13/22 15:40 Blood - Blood Anaerobic Blood Culture - Final No growth in 5 days. 08/13/22 14:55 Blood - Blood Aerobic Blood Culture - Final No growth in 5 days. 08/13/22 14:55 Blood - Blood Anaerobic Blood Culture - Final No growth in 5 days. Medications List Reviewed: Yes Assessment And Plan - Plan - Physical Exam General: Alert, In no apparent distress, Oriented x3 HEENT: Atraumatic, Mucous membr. moist/pink, Sclerae nonicteric Neck: JVD not distended Respiratory: Clear to auscultation bilaterally, Diminished Cardiovascular: No edema, Regular rate/rhythm, No murmurs Gastrointestinal: Soft and benign, Non-distended, No tenderness, No rebound, No guarding Musculoskeletal: No clubbing Integumentary: Diabetic ulcer, Other (left foot covered in surgical dressing) Neurological: Normal speech, Normal affect # Acute Chronic Obstructive Pulmonary Disease Exacerbation # SIRS Criteria (Tachypnea, Tachycardia) likely due to COPD Exacerbation No obvious trigger at this time. No evidence of infection. - Evaluation thus far: - Chest x-ray = "aeration of the lungs appears improved since 08/03/2022. No acute process identified" - Plan: -Continue DuoNebs + prednisone - Consulted Respiratory Therapy - Supplemental oxygen to maintain SpO2 > 92% - working on home oxygen arrangements - Assess inhaler technique one improved from COPD exacerbation - Encouraged incentive spirometry # Type II Diabetes Mellitus complicated by Left Diabetic Foot Ulcer 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 No malalignment. Mild plantar and dorsal aspect calcaneal spurring. The appearance of the calcaneus is similar to 07/23/2022. No definite evidence of osteomyelitis. MRI could confirm if clinically indicated." - Bilateral lower extremity arterial Doppler = "no flow limiting stenosis within either lower extremity." - General Surgery consulted and spoke with Dr. Ledesma - recommendations appreciated - 08/18/2022 - Excisional debridement Left heel infected necrotic diabetic ulcer - He has cleared for discharge once cleared by Dr. Ann - Wound care consulted - Infectious Diseases consulted and spoke with Dr. Ann - recommendations appreciated - PICC line placed - plan for 6 weeks of vancomycin + meropenem - Correction scale insulin # Severe Peripheral Vascular Disease - Cardiology consulted and spoke with Dr. Cabrera - recommendations appreciated - Plan for peripheral angiogram today # KDIGO Stage I Acute Kidney Injury (resolved) # Microscopic Hematuria - Nephrology consulted and she was evaluated by Dr. Remy - recommendations appreciated - Creatinine = 1.39 -> 1.41 -> 1.17 -> 1.04 -> 0.86 - Urinalysis = 2+ blood, 3+ protein - Monitor creatinine and urine output - If worsening, obtain renal ultrasound - Renally dose medications # Iron Deficiency Anemia - Continue IV iron replacement # Hypertension - Continue home lisinopril, nifedipine, spironolactone Wes Richard M.D.
[2022-08-19] MEDS: VANCOMYCIN 2 GM in NA CHLORIDE 0.9% 500 ML IVPB SCH (21:14)
--- NOTE | 2022-08-19 21:50 | P.PN ---
Date of Service: 08/19/22 Vital Signs Temp Pulse Resp BP Pulse Ox 98.3 F 73 17 152/66 H 93 08/19/22 19:07 08/19/22 21:16 08/19/22 19:07 08/19/22 21:16 08/19/22 19:07 Medications Acetaminophen (Acetaminophen 325 Mg Tablet) 650 mg PO Q6H PRN PRN Reason: TEMP > 100.4' F Last Admin: 08/17/22 06:53 Dose: 650 mg Hydrocodone Bitart/Acetaminophen (Hydrocodone/Apap 5/325 Mg Tab) 1 tab PO Q6H PRN PRN Reason: Pain scale 5-7 (Moderate) Last Admin: 08/19/22 17:06 Dose: 1 tab Albuterol Sulfate (Albuterol 2.5 Mg/3 Ml Neb Jesika) 2.5 mg NEB [id number] [facility] Last Admin: 08/19/22 13:47 Dose: 2.5 mg Aspirin (Aspirin 325 Mg Tab) 325 mg PO DAILY [facility] Last Admin: 08/19/22 08:54 Dose: Not Given Cholecalciferol (Vitamin D 5,000 Unit Cap) 5,000 unit PO DAILY [facility] Stop: 08/23/22 09:01 Last Admin: 08/19/22 08:55 Dose: Not Given Collagenase (Collagenase 30 Gm Ointment) 1 appl TOP DAILY [facility] Last Admin: 08/19/22 15:15 Dose: 1 appl Ergocalciferol (Drisdol (Vitamin D=Ergocalciferol) 66274 Unit Cap) 50,000 unit PO Q7D [facility] Last Admin: 08/19/22 08:54 Dose: Not Given Furosemide (Furosemide 40 Mg/4 Ml Vial) 40 mg IV BIDL [facility] Last Admin: 08/19/22 16:56 Dose: 40 mg Heparin Sodium (Porcine) (Heparin 5000 Unit/Ml 1 Ml Vial) 5,000 unit SQ Q12HR [facility] Last Admin: 08/18/22 20:12 Dose: 5,000 unit Home Med (Home Med 1 Ea Unk [Collagenase 30 Gm Ointment]) 1 ea TOP DAILY [facility] Last Admin: 08/19/22 08:54 Dose: Not Given Home Med (Fish Oil/Dha/Epa [Fish Oil 1,200 Mg Fish Oil]) 1 tab PO DAILY [facility] Last Admin: 08/19/22 08:54 Dose: Not Given Home Med (Methylcellulose (With Sugar) [Citrucel Powder]) 1 dose PO DAILY [facility] Last Admin: 08/19/22 08:54 Dose: Not Given Home Med (Mupirocin Cream) 1 dose TOP TID [facility] Last Admin: 08/19/22 14:00 Dose: Not Given Meropenem 1,000 mg/ Sodium (Chloride) 100 mls @ 200 mls/hr IV Q8HR [facility] Last Admin: 08/19/22 16:57 Dose: 100 mls Ferric Sodium Gluconate Complex 125 mg/ Sodium Chloride 110 mls @ 100 mls/hr IV DAILY [facility] Stop: 08/25/22 10:05 Last Admin: 08/19/22 08:49 Dose: 110 mls Vancomycin HCl 2 gm/ Sodium (Chloride) 500 mls @ 250 mls/hr IVPB Q36H [facility] Last Admin: 08/19/22 21:14 Dose: 500 mls Insulin Human Regular (Insulin -Regular Human 50 Unit/0.5 Ml Ml) 0 unit SQ ACHS [facility]; Protocol Last Admin: 08/19/22 21:15 Dose: 2 unit Ipratropium [place] (Ipratropium Brom 0.5mg/2.5ml) 0.5 mg NEB [id number] [facility] Last Admin: 08/19/22 13:47 Dose: 0.5 mg Labetalol HCl (Labetalol 20 Mg/4ml Syringe) 10 mg IV Q6H PRN PRN Reason: sbp Last Admin: 08/19/22 16:58 Dose: 10 mg Lisinopril (Lisinopril 20 Mg Tab) 30 mg PO DAILY [facility] Last Admin: 08/19/22 08:55 Dose: Not Given Nifedipine (Nifedipine Xl 30 Mg Tablet) 30 mg PO BID [facility] Last Admin: 08/19/22 21:15 Dose: 30 mg Ondansetron HCl (Ondansetron 4 Mg/2 Ml Vial) 4 mg IV Q6HP PRN PRN Reason: NAUSEA / VOMITING Prednisone (Prednisone 20 Mg Tab) 20 mg PO BID [facility] Stop: 08/23/22 13:26 Last Admin: 08/19/22 21:14 Dose: 20 mg Sodium Chloride (Flush Normal Saline 10 Ml) 10 ml IV BID [facility] Last Admin: 08/19/22 21:16 Dose: 10 ml Spironolactone (Spironolactone 25 Mg Tablet) 25 mg PO BID [facility] Last Admin: 08/19/22 21:16 Dose: 25 mg Venlafaxine HCl (Venlafaxine Hcl Xr 75 Mg Cap) 150 mg PO DAILY [facility] Last Admin: 08/19/22 08:54 Dose: Not Given Microbiology Results 08/13/22 15:40 Blood - Blood Aerobic Blood Culture - Final No growth in 5 days. 08/13/22 15:40 Blood - Blood Anaerobic Blood Culture - Final No growth in 5 days. 08/13/22 14:55 Blood - Blood Aerobic Blood Culture - Final No growth in 5 days. 08/13/22 14:55 Blood - Blood Anaerobic Blood Culture - Final No growth in 5 days. Assessment/ Plan: Nephrology No dyspnea No chest pain No acute events overnight Vitals, medications, blood work and imaging reviewed in the chart. NAD. Obese. NCAT. MMM. Neck supple. Normal respiratory effort. RRR. Abd ND. No C/C/E. No rash. AAO. Normal speech. [place] Stage I ESPERANZA, resolved Proteinuria -No NSAIDs Hypokalemia -Replete prn HypoPO4 -Replete as ordered HTN with CKD/ CHF -Continue Lisinopril Diastolic CHF, A/C -Continue furosemide and spironolactone DM II with CKD & left foot ulcer -RISS Iron Deficiency Anemia -Agree with IV iron
[2022-08-20] MEDS: Meropenem 1,000 MG in NA CHLORIDE 0.9% 100 ML IV SCH ×3 (00:31→15:43)
[2022-08-20] MEDS: LABETALOL 20 MG/4ML SYRINGE IV PRN ×2 (00:31→05:35)
[2022-08-20] MEDS: IPRATROPIUM BROM 0.5MG/2.5ML NEB SCH ×4 (01:25→21:10)
[2022-08-20] MEDS: ALBUTEROL 2.5 MG/3 ML NEB SOL NEB SCH ×4 (01:25→21:10)
[2022-08-20 04:42] LABS: Absolute Lymphocytes (CBC) 0.7 K/uL (0.7-4.9); Lymphocytes % 24.7 % (15.3-44.8); MCV 73.2 fL (80-100); MPV 7.7 fL (7.6-11.3); RBC Red Blood Cell Count 3.42 M/uL (3.86-4.86)
[2022-08-20 05:49] VITALS: BMI 40.9
[2022-08-20] MEDS: INSULIN -REGULAR HUMAN 50 UNIT/0.5 ML ML SQ SCH ×4 (07:30→21:00)
[2022-08-20] MEDS: FUROSEMIDE 40 MG/4 ML VIAL IV SCH ×2 (08:04→15:43)
[2022-08-20] MEDS: VENLAFAXINE HCL XR 75 MG CAP PO SCH (08:05)
[2022-08-20] MEDS: HOME MED 1 EA UNK (Fish Oil/Dha/Epa [Fish Oil 1,200 Mg Fish Oil] Capsule) PO SCH (08:05)
[2022-08-20] MEDS: COLLAGENASE TOP SCH (08:05)
[2022-08-20] MEDS: predniSONE 20 MG TAB PO SCH ×2 (08:05→21:05)
[2022-08-20] MEDS: ASPIRIN 325 MG TAB PO SCH (08:05)
[2022-08-20] MEDS: SPIRONOLACTONE 25 MG TABLET PO SCH ×2 (08:05→21:05)
[2022-08-20] MEDS: NIFEDIPINE XL 30 MG TABLET PO SCH (08:06)
[2022-08-20] MEDS: COLLAGENASE 30 GM OINTMENT TOP SCH (08:06)
[2022-08-20] MEDS: METHYLCELLULOSE PO SCH (08:06)
[2022-08-20] MEDS: lisinopriL 20 MG TAB PO SCH (08:06)
[2022-08-20] MEDS: MUPIROCIN TOP SCH ×3 (08:06→21:00)
[2022-08-20] MEDS: [UNRECOGNIZED DRUG - OTHER] PO SCH (08:06)
[2022-08-20] MEDS: VITAMIN D 5,000 UNIT CAP PO SCH (08:07)
[2022-08-20] MEDS: SOD FERRIC GLUC COMPLX/SUCROSE 125 MG in NA CHLORIDE 0.9% 100 ML IV SCH (09:00)
[2022-08-20] MEDS ORDERED: LIDOCAINE 1% 20 ML MDV ONE (10:58)
[2022-08-20] MEDS ORDERED: HEPA 1000U/500MLS 2,000 UNIT/1,000 ML BAG IV ONE (10:58)
[2022-08-20] MEDS ORDERED: ATROPINE SULF 1 MG/10 ML SYR IV ONE (11:06)
[2022-08-20] MEDS ORDERED: NITROGLYCERIN 100 MCG/ML SYR (for cath lab use only) IV ONE (11:06)
[2022-08-20] MEDS ORDERED: FENTANYL CITR 100 MCG/2 ML ONE (11:06)
[2022-08-20] MEDS ORDERED: MIDAZOLAM HCL 2 MG/2 ML INJ ONE (11:06)
[2022-08-20] MEDS ORDERED: HEPARIN 10,000 UNIT/10 ML VIAL IV ONE (11:06)
[2022-08-20] MEDS ORDERED: NITROGLYCERIN/D5W 25 MG/250 ML BTL IV ONE (11:07)
--- NOTE | 2022-08-20 11:12 | P.PN ---
Nephrology (S) Pt seen after some time, recent events/notes reviewed. Pt has been diuresing well, about 1800 cc in lo bag when seen. Reports breathing easier. (O) Vitals reviewed in the EMR General: In no apparent distress, Cooperative HEENT: Atraumatic, Normocephalic, PERRLA, NC present Neck: Supple Respiratory: Normal air movement, no rhonchi Cardiovascular: Regular rate/rhythm, Normal S1 S2 Gastrointestinal: Soft and benign, Non-distended, No tenderness, No rebound Musculoskeletal: No contractures, Other (Lt foot dressed) Integumentary: Other (Did not examine left foot wound, see notes by the primary team for details) Neurological: Normal speech, Normal tone, Normal affect Laboratory Data (last 24 hrs) Reviewed in the EMR Conclusions/Impression: A/P) -Pt's labs on admission showed Stage 1 ESPERANZA in c/w prior labs which have shown Cr levels more within normal limits. Pt then likely had some intravascular vol depletion, compounded by concurrent use of NSAIDs, max dose ACEi, other. -Cr level remains stable since, risk for CHIKA with any angiogram is low. -Hypokalemia, severe on admission 2nd to chronic loop diuretic use, possible diarrhea and likely poor PO intake as phos was also low. Monitor lytes closely with diuretic escalation. -Dyspnea, hypoxia likely multifactorial. Pt is diuresing effectively, would cut back on Lasix and switch back to PO therapy by tmrw -Trend BP, target BP < 140/90. Will titrate CCB dose. -Microcytic anemia, iron deficiency, pt on IV iron series per primary team Pete Remy MD, KAT[facility]
--- NOTE | 2022-08-20 11:29 | P.PN ---
Subjective Date of Service: 08/20/22 Chief Complaint: Left foot wound and AMS Patient lying in bed with at the bedside. Reported to ID that she wanted to go home for one day then come back again. Per , he preferred to have her treated than going home prematurely. No major events upon examination. Physical Examination - Vital Signs Temperature: 98.5 F Blood Pressure: 173/79 Pulse: 82 Respirations: 21 Pulse Ox (%): 95 - Physical Exam General: Alert, In no apparent distress, Oriented x3 Respiratory: Clear to auscultation bilaterally, Other (4 L NC) Cardiovascular: Normal pulses, Normal S1 S2 Gastrointestinal: Hypoactive Musculoskeletal: Erythema, Tenderness, Other (left heel diabetic ulcer) Integumentary: Skin lesion, Tenderness/swelling, Erythema, Other (left heel d iabetic ulcer) Neurological: Normal speech, Normal tone, Normal affect Urinary: Vail catheter (Urine yellow and clear) - Studies Acetaminophen (Acetaminophen 325 Mg Tablet) 650 mg PO Q6H PRN PRN Reason: TEMP > 100.4' F Last Admin: 08/17/22 06:53 Dose: 650 mg Hydrocodone Bitart/Acetaminophen (Hydrocodone/Apap 5/325 Mg Tab) 1 tab PO Q6H PRN PRN Reason: Pain scale 5-7 (Moderate) Last Admin: 08/19/22 17:06 Dose: 1 tab Albuterol Sulfate (Albuterol 2.5 Mg/3 Ml Neb Jesika) 2.5 mg NEB [id number] [facility] Last Admin: 08/20/22 07:33 Dose: 2.5 mg Aspirin (Aspirin 325 Mg Tab) 325 mg PO DAILY [facility] Last Admin: 08/20/22 08:05 Dose: Not Given Cholecalciferol (Vitamin D 5,000 Unit Cap) 5,000 unit PO DAILY [facility] Stop: 08/23/22 09:01 Last Admin: 08/20/22 08:07 Dose: Not Given Collagenase (Collagenase 30 Gm Ointment) 1 appl TOP DAILY [facility] Last Admin: 08/20/22 08:06 Dose: 1 appl Ergocalciferol (Drisdol (Vitamin D=Ergocalciferol) 75854 Unit Cap) 50,000 unit PO Q7D [facility] Last Admin: 08/19/22 08:54 Dose: Not Given Furosemide (Furosemide 40 Mg/4 Ml Vial) 40 mg IV BIDL [facility] Last Admin: 08/20/22 08:04 Dose: 40 mg Heparin Sodium (Porcine) (Heparin 5000 Unit/Ml 1 Ml Vial) 5,000 unit SQ Q12HR [facility] Last Admin: 08/18/22 20:12 Dose: 5,000 unit Home Med (Home Med 1 Ea Unk [Collagenase 30 Gm Ointment]) 1 ea TOP DAILY [facility] Last Admin: 08/20/22 08:05 Dose: Not Given Home Med (Fish Oil/Dha/Epa [Fish Oil 1,200 Mg Fish Oil]) 1 tab PO DAILY [facility] Last Admin: 08/20/22 08:05 Dose: Not Given Home Med (Methylcellulose (With Sugar) [Citrucel Powder]) 1 dose PO DAILY [facility] Last Admin: 08/20/22 08:06 Dose: Not Given Home Med (Mupirocin Cream) 1 dose TOP TID [facility] Last Admin: 08/20/22 08:06 Dose: Not Given Meropenem 1,000 mg/ Sodium (Chloride) 100 mls @ 200 mls/hr IV Q8HR [facility] Last Admin: 08/20/22 08:03 Dose: 100 mls Ferric Sodium Gluconate Complex 125 mg/ Sodium Chloride 110 mls @ 100 mls/hr IV DAILY [facility] Stop: 08/25/22 10:05 Last Admin: 08/20/22 09:00 Dose: Not Given Vancomycin HCl 2 gm/ Sodium (Chloride) 500 mls @ 250 mls/hr IVPB Q36H [facility] Last Admin: 08/19/22 21:14 Dose: 500 mls Insulin Human Regular (Insulin -Regular Human 50 Unit/0.5 Ml Ml) 0 unit SQ ACHS [facility]; Protocol Last Admin: 08/20/22 07:30 Dose: Not Given Ipratropium [place] (Ipratropium Brom 0.5mg/2.5ml) 0.5 mg NEB [id number] [facility] Last Admin: 08/20/22 07:33 Dose: 0.5 mg Labetalol HCl (Labetalol 20 Mg/4ml Syringe) 10 mg IV Q6H PRN PRN Reason: sbp Last Admin: 08/20/22 05:35 Dose: 10 mg Lisinopril (Lisinopril 20 Mg Tab) 30 mg PO DAILY [facility] Last Admin: 08/20/22 08:06 Dose: Not Given Nifedipine (Nifedipine Xl 60 Mg Tablet) 60 mg PO BID [facility] Ondansetron HCl (Ondansetron 4 Mg/2 Ml Vial) 4 mg IV Q6HP PRN PRN Reason: NAUSEA / VOMITING Prednisone (Prednisone 20 Mg Tab) 20 mg PO BID [facility] Stop: 08/23/22 13:26 Last Admin: 08/20/22 08:05 Dose: Not Given Sodium Chloride (Flush Normal Saline 10 Ml) 10 ml IV BID [facility] Last Admin: 08/20/22 08:06 Dose: 10 ml Spironolactone (Spironolactone 25 Mg Tablet) 25 mg PO BID [facility] Last Admin: 08/20/22 08:05 Dose: Not Given Venlafaxine HCl (Venlafaxine Hcl Xr 75 Mg Cap) 150 mg PO DAILY [facility] Last Admin: 08/20/22 08:05 Dose: Not Given Medications List Reviewed: Yes Assessment And Plan - Current Problems (Diagnosis) (1) Diabetic foot ulcer Current Visit: Yes Status: Acute Plan: Cultures: 08/13 BC: Negative 08/15 Wound left heel: Pseudomonas aeruginosa (Multi-drug Resistant) Imaging: - 08/13 Foot Xray: FINDINGS/IMPRESSION: No acute fracture. No malalignment. Mild plantar and dorsal aspect calcaneal spurring. The appearance of the calcaneus is similar to 07/23/2022. No definite evidence of osteomyelitis. MRI could confirm if clinically indicated. - 08/18 Dr. Ledesma performed excisional debridement of left heel infected necrotic diabetic ulcer Antibiotics: 08/13 Started IV Meropenem and Vancomycin Recommendation: 1. Continue current IV antibiotics Meropenem and Vancomycin for total of 6 weeks duration 2. Elevated the affected leg to reduce edema and offload pressure 3. Hyperbaric oxygen therapy to promote wound healing and recovery 4. Consider LTAC placement for aggressive IV antibiotic management, diabetic sugar control, wound debridement and care with wound vac placement when improving 5. Apply Medihoney to the wound, cover with surgical dressing and secure with Kerlix daily and change when soiled Patient agrees to initiate the process for LTAC placement ID will closely monitoring the patient for signs of infection with fever and WBC trends. - Plan - Left foot wound: Continue current IV antibiotics Meropenem and Vancomycin for total of 6 weeks duration. Consider LTAC placement for aggressive IV antibiotic management, diabetic sugar control, wound debridement and care with wound vac placement when improving - Acute pain - Acute encephalopathy. Unclear etiology. CT head unremarkable for any acute intracranial abnormality - Acute on chronic COPD exacerbation - Anemia of chronic disease: We will continue to monitor hemoglobin and transfuse if less than 7.0 - DM2 - Hypokalemia - ESPERANZA: Nephrology consulted - Hypertension Case has been discussed with Dr. Ann N Physician Review: Patient Assessed, Agree with Above Assessment and Plan
[2022-08-20] MEDS: HYDROCODONE/APAP 5/325 MG TAB PO PRN ×2 (12:50→21:09)
--- NOTE | 2022-08-20 13:19 | P.PN ---
Subjective Date of Service: 08/20/22 Chief Complaint: Left foot wound and AMS No acute events overnight. Peripheral angiogram was not able to be completed yesterday due to orthopnea when lying flat. She was given furosemide, and plan is for possible peripheral angiogram later today. Today, she appears anxious and tearful. She states that she is scared to have the peripheral angiogram and would like to be discharged home. I replied that, in her current clinical state, I would advise against discharge. She initially was going to leave AGAINST MEDICAL ADVICE. However, after further discussion, she agreed to stay for continued medical care. We discussed that her current medical condition may be too advanced to be managed at home. Today, she is more agreeable to LTAC placement. Appreciate CM assistance. Review of Systems 10-point ROS is otherwise unremarkable Integumentary: Other (left foot wound) Physical Examination - Vital Signs Temperature: 98.5 F Blood Pressure: 173/79 Pulse: 82 Respirations: 21 Pulse Ox (%): 95 - Studies Medications List Reviewed: Yes Assessment And Plan - Plan - Physical Exam General: Alert, In no apparent distress, Oriented x3 HEENT: Atraumatic, Sclerae nonicteric Neck: JVD not distended Respiratory: Clear to auscultation bilaterally, Diminished Cardiovascular: No edema, Regular rate/rhythm, No murmurs Gastrointestinal: Soft and benign, Non-distended, No tenderness, No rebound, No guarding Musculoskeletal: No clubbing Integumentary: Diabetic ulcer, Other (left foot covered in surgical dressing) Neurological: Normal speech, Anxious affect # Type II Diabetes Mellitus complicated by Left Diabetic Foot Ulcer 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 No malalignment. Mild plantar and dorsal aspect calcaneal spurring. The appearance of the calcaneus is similar to 07/23/2022. No definite evidence of osteomyelitis. MRI could confirm if clinically indicated." - Bilateral lower extremity arterial Doppler = "no flow limiting stenosis within either lower extremity." - General Surgery consulted and spoke with Dr. Ledesma - recommendations appreciated - 08/18/2022 - Excisional debridement Left heel infected necrotic diabetic ulcer - He has cleared for discharge once cleared by Dr. Ann - Wound care consulted - Infectious Diseases consulted and spoke with Dr. Ann - recommendations appreciated - PICC line placed - plan for 6 weeks of vancomycin + meropenem - Correction scale insulin - Case management consulted for LTAC placement # Acute Chronic Obstructive Pulmonary Disease Exacerbation (improved) # SIRS Criteria (Tachypnea, Tachycardia) likely due to COPD Exacerbation No obvious trigger at this time. No evidence of infection. - Evaluation thus far: - Chest x-ray = "aeration of the lungs appears improved since 08/03/2022. No acute process identified" - Plan: - Continue DuoNebs + prednisone - Consulted Respiratory Therapy - Supplemental oxygen to maintain SpO2 > 92% - CM working on home oxygen arrangements - Assess inhaler technique one improved from COPD exacerbation - Encouraged incentive spirometry # Severe Peripheral Vascular Disease - Cardiology consulted and spoke with Dr. Cabrera - recommendations appreciated - Plan for peripheral angiogram today # KDIGO Stage I Acute Kidney Injury (resolved) # Microscopic Hematuria - Nephrology consulted and she was evaluated by Dr. Remy - recommendations appreciated - Creatinine = 1.39 -> 1.41 -> 1.17 -> 1.04 -> 0.86 - Urinalysis = 2+ blood, 3+ protein - Monitor creatinine and urine output - If worsening, obtain renal ultrasound - Renally dose medications # Iron Deficiency Anemia - Continue IV iron replacement # Hypertension - Continue home lisinopril, nifedipine, spironolactone Wes Richard M.D.
--- NOTE | 2022-08-20 19:42 | PN ---
Date of Progress Note: 08/20/2022 Subjective: Seen by bedside for the second time today. She refused the peripheral angiogram despite that she agreed on it yesterday, so procedure was canceled. Review of Systems: No chest pain, shortness of breath, orthopnea, cough, nausea, vomiting, or diarrhea. All other syste ms reviewed and they were negative. Patient wants to go home. Physical Examination: Vital Signs: Temperature is 98.5, pulse 82, breathing at 21, blood pressure is 173/79, saturating 95 % on room air. General: Pleasant middle-aged female, in no apparent distress. Head and Neck: Pupils are equal, reactive to light. Intact eye movements. No JVD. No cervical lym phadenopathy. Neck is supple. Thyroid is not enlarged. Lungs: Clear to auscultation bilaterally. No rhonchi, rales, or crackles. No accessory muscle use. Heart: Regular rate and rhythm. No extra sounds. Abdomen: Soft, nontender. Bowel sounds positive. No organomegaly. No masses or hernia. No rigidi ty or rebound. Extremities: No clubbing or cyanosis. Intact pulses. Skin: No rash. Neurologic: Alert, awake, oriented x3. No acute focal deficits appreciated. Investigations: BUN 17, creatinine 0.86, and hemoglobin 7.9. Assessment And Recommendation: 1.Severe peripheral vascular disease. She refused peripheral angiogram again. She has an open woun d. Explained to her that likely the healing process will be significantly jeopardize without any int ervention. However, she wants to go home against medical advice and refused to sit for the procedure . Respecting her wish, procedure was canceled. I asked her to follow up as an outpatient in case sh cee decided to change her mind. 2.Infected foot ulcer, on proper antibiotics, status post debridement. SR/MODL Voice ID: [id number] Report ID: [id number]
[2022-08-20] MEDS: JUVEN PACKET PO SCH (21:00)
[2022-08-20] MEDS: NIFEDIPINE XL 60 MG TABLET PO SCH (21:05)
[2022-08-21] MEDS: Meropenem 1,000 MG in NA CHLORIDE 0.9% 100 ML IV SCH ×3 (01:05→16:27)
[2022-08-21] MEDS: IPRATROPIUM BROM 0.5MG/2.5ML NEB SCH ×4 (01:40→20:00)
[2022-08-21] MEDS: ALBUTEROL 2.5 MG/3 ML NEB SOL NEB SCH ×4 (01:40→20:00)
[2022-08-21] MEDS: HYDROCODONE/APAP 5/325 MG TAB PO PRN ×3 (06:01→21:10)
[2022-08-21] MEDS: LABETALOL 20 MG/4ML SYRINGE IV PRN (06:02)
[2022-08-21] MEDS: MUPIROCIN TOP SCH ×3 (09:00→20:21)
[2022-08-21] MEDS: COLLAGENASE 30 GM OINTMENT TOP SCH (09:00)
[2022-08-21] MEDS: COLLAGENASE TOP SCH (09:00)
[2022-08-21] MEDS: [UNRECOGNIZED DRUG - OTHER] PO SCH (09:00)
[2022-08-21] MEDS: HOME MED 1 EA UNK (Fish Oil/Dha/Epa [Fish Oil 1,200 Mg Fish Oil] Capsule) PO SCH (09:00)
[2022-08-21] MEDS: METHYLCELLULOSE PO SCH (09:00)
[2022-08-21] MEDS: JUVEN PACKET PO SCH ×2 (09:00→20:21)
--- NOTE | 2022-08-21 09:26 | P.PN ---
Subjective Date of Service: 08/21/22 Chief Complaint: Left foot wound and AMS Patient lying in bed with at the bedside. She is in good spirit and states that she did not want to lose her leg and would work with the team to get better. Physical Examination - Vital Signs Temperature: 98 F Blood Pressure: 165/75 Pulse: 91 Respirations: 19 Pulse Ox (%): 97 - Physical Exam General: Alert, In no apparent distress, Oriented x3 Respiratory: Clear to auscultation bilaterally, Other (on 2 L of oxygen support) Cardiovascular: No edema, Normal S1 S2 Gastrointestinal: Normal bowel sounds Musculoskeletal: No swelling, Tenderness (left heel diabetic ulcer) Integumentary: Skin lesion, Tenderness/swelling, Erythema, Diabetic ulcer (left heel diabetic ulcer) Neurological: Normal speech, Normal tone, Normal affect Urinary: Vail catheter (urine yellow and clear) - Studies Current medications: Acetaminophen (Acetaminophen 325 Mg Tablet) 650 mg PO Q6H PRN PRN Reason: TEMP > 100.4' F Last Admin: 08/17/22 06:53 Dose: 650 mg Hydrocodone Bitart/Acetaminophen (Hydrocodone/Apap 5/325 Mg Tab) 1 tab PO Q6H PRN PRN Reason: Pain scale 5-7 (Moderate) Last Admin: 08/21/22 06:01 Dose: 1 tab Albuterol Sulfate (Albuterol 2.5 Mg/3 Ml Neb Jesika) 2.5 mg NEB [id number] [facility] Last Admin: 08/21/22 08:00 Dose: 2.5 mg Aspirin (Aspirin 325 Mg Tab) 325 mg PO DAILY [facility] Last Admin: 08/20/22 08:05 Dose: Not Given Cholecalciferol (Vitamin D 5,000 Unit Cap) 5,000 unit PO DAILY [facility] Stop: 08/23/22 09:01 Last Admin: 08/20/22 08:07 Dose: Not Given Collagenase (Collagenase 30 Gm Ointment) 1 appl TOP DAILY [facility] Last Admin: 08/20/22 08:06 Dose: 1 appl Ergocalciferol (Drisdol (Vitamin D=Ergocalciferol) 02573 Unit Cap) 50,000 unit PO Q7D [facility] Last Admin: 08/19/22 08:54 Dose: Not Given Furosemide (Furosemide 40 Mg/4 Ml Vial) 40 mg IV BIDL [facility] Last Admin: 08/20/22 15:43 Dose: 40 mg Heparin Sodium (Porcine) (Heparin 5000 Unit/Ml 1 Ml Vial) 5,000 unit SQ Q12HR [facility] Last Admin: 08/18/22 20:12 Dose: 5,000 unit Home Med (Home Med 1 Ea Unk [Collagenase 30 Gm Ointment]) 1 ea TOP DAILY [facility] Last Admin: 08/20/22 08:05 Dose: Not Given Home Med (Fish Oil/Dha/Epa [Fish Oil 1,200 Mg Fish Oil]) 1 tab PO DAILY [facility] Last Admin: 08/20/22 08:05 Dose: Not Given Home Med (Methylcellulose (With Sugar) [Citrucel Powder]) 1 dose PO DAILY [facility] Last Admin: 08/20/22 08:06 Dose: Not Given Home Med (Mupirocin Cream) 1 dose TOP TID [facility] Last Admin: 08/20/22 21:00 Dose: Not Given Meropenem 1,000 mg/ Sodium (Chloride) 100 mls @ 200 mls/hr IV Q8HR [facility] Last Admin: 08/21/22 01:05 Dose: 100 mls Ferric Sodium Gluconate Complex 125 mg/ Sodium Chloride 110 mls @ 100 mls/hr IV DAILY [facility] Stop: 08/25/22 10:05 Last Admin: 08/20/22 09:00 Dose: Not Given Vancomycin HCl 2 gm/ Sodium (Chloride) 500 mls @ 250 mls/hr IVPB Q36H [facility] Last Admin: 08/19/22 21:14 Dose: 500 mls Insulin Human Regular (Insulin -Regular Human 50 Unit/0.5 Ml Ml) 0 unit SQ ACHS [facility]; Protocol Last Admin: 08/20/22 21:00 Dose: Not Given Ipratropium [place] (Ipratropium Brom 0.5mg/2.5ml) 0.5 mg NEB [id number] [facility] Last Admin: 08/21/22 08:00 Dose: 0.5 mg L-Arginine/L-Glutamine/HMB (Anup Packet) 1 pkt PO BID [facility] Last Admin: 08/20/22 21:00 Dose: 1 pkt Labetalol HCl (Labetalol 20 Mg/4ml Syringe) 10 mg IV Q6H PRN PRN Reason: sbp Last Admin: 08/21/22 06:02 Dose: 10 mg Lisinopril (Lisinopril 20 Mg Tab) 30 mg PO DAILY [facility] Last Admin: 08/20/22 08:06 Dose: Not Given Nifedipine (Nifedipine Xl 60 Mg Tablet) 60 mg PO BID [facility] Last Admin: 08/20/22 21:05 Dose: 60 mg Ondansetron HCl (Ondansetron 4 Mg/2 Ml Vial) 4 mg IV Q6HP PRN PRN Reason: NAUSEA / VOMITING Prednisone (Prednisone 20 Mg Tab) 20 mg PO BID [facility] Stop: 08/23/22 13:26 Last Admin: 08/20/22 21:05 Dose: 20 mg Sodium Chloride (Flush Normal Saline 10 Ml) 10 ml IV BID [facility] Last Admin: 08/20/22 21:06 Dose: 10 ml Spironolactone (Spironolactone 25 Mg Tablet) 25 mg PO BID [facility] Last Admin: 08/20/22 21:05 Dose: 25 mg Venlafaxine HCl (Venlafaxine Hcl Xr 75 Mg Cap) 150 mg PO DAILY [facility] Last Admin: 08/20/22 08:05 Dose: Not Given Medications List Reviewed: Yes Assessment And Plan - Current Problems (Diagnosis) (1) Diabetic foot ulcer Current Visit: Yes Status: Acute Plan: Cultures: 08/13 BC: Negative 08/15 Wound left heel: Pseudomonas aeruginosa (Multi-drug Resistant) Imaging: - 08/13 Foot Xray: FINDINGS/IMPRESSION: No acute fracture. No malalignment. Mild plantar and dorsal aspect calcaneal spurring. The appearance of the calcaneus is similar to 07/23/2022. No definite evidence of osteomyelitis. MRI could confirm if clinically indicated. - 08/18 Dr. Ledesma performed excisional debridement of left heel infected necrotic diabetic ulcer Antibiotics: 08/13 Started IV Meropenem and Vancomycin Recommendation: 1. Continue current IV antibiotics Meropenem and Vancomycin for total of 6 weeks duration 2. Elevated the affected leg to reduce edema and offload pressure 3. Hyperbaric oxygen therapy to promote wound healing and recovery 4. Consider LTAC placement for aggressive IV antibiotic management, diabetic sugar control, wound debridement and care with wound vac placement when improving 5. Apply Medihoney to the wound, cover with surgical dressing and secure with Kerlix daily and change when soiled Patient agrees to initiate the process for LTAC placement ID will closely monitoring the patient for signs of infection with fever and WBC trends. - Plan - Left foot wound: Continue current IV antibiotics Meropenem and Vancomycin for total of 6 weeks duration. Consider LTAC placement for aggressive IV antibiotic management, diabetic sugar control, wound debridement and care with wound vac placement when improving - Acute pain - Acute encephalopathy. Unclear etiology. CT head unremarkable for any acute intracranial abnormality - Acute on chronic COPD exacerbation - Anemia of chronic disease: We will continue to monitor hemoglobin and transfuse if less than 7.0 - DM2 - Hypokalemia - ESPERANZA: Nephrology consulted - Hypertension Case has been discussed with Roselyn Dorsey Physician Review: Patient Assessed, Agree with Above Assessment and Plan
[2022-08-21 09:35] LABS: Absolute Lymphocytes (CBC) 1.3 K/uL (0.7-4.9); Hematocrit 28.9 % (36.0-45.0); Lymphocytes % 43.5 % (15.3-44.8); MCV 73.1 fL (80-100); MPV 7.4 fL (7.6-11.3); RBC Red Blood Cell Count 3.95 M/uL (3.86-4.86)
[2022-08-21] MEDS: VANCOMYCIN 2 GM in NA CHLORIDE 0.9% 500 ML IVPB SCH (09:37)
[2022-08-21] MEDS: INSULIN -REGULAR HUMAN 50 UNIT/0.5 ML ML SQ SCH ×4 (09:37→20:21)
[2022-08-21] MEDS: SOD FERRIC GLUC COMPLX/SUCROSE 125 MG in NA CHLORIDE 0.9% 100 ML IV SCH (09:37)
[2022-08-21] MEDS: VENLAFAXINE HCL XR 75 MG CAP PO SCH (09:38)
[2022-08-21] MEDS: NIFEDIPINE XL 60 MG TABLET PO SCH ×2 (09:38→20:20)
[2022-08-21] MEDS: VITAMIN D 5,000 UNIT CAP PO SCH (09:38)
[2022-08-21] MEDS: SPIRONOLACTONE 25 MG TABLET PO SCH ×2 (09:38→20:20)
[2022-08-21] MEDS: predniSONE 20 MG TAB PO SCH ×2 (09:39→20:20)
[2022-08-21] MEDS: ASPIRIN 325 MG TAB PO SCH (09:39)
[2022-08-21] MEDS: lisinopriL 20 MG TAB PO SCH ×2 (09:39→20:20)
[2022-08-21] MEDS: HEPARIN 5000 UNIT/ML 1 ML VIAL SQ SCH ×2 (09:40→20:21)
[2022-08-21] MEDS: FUROSEMIDE 40 MG/4 ML VIAL IV SCH ×2 (09:44→16:27)
[2022-08-21 09:55] LABS: Potassium 3.2 mmol/L (3.5-5.1)
--- NOTE | 2022-08-21 10:25 | P.PN ---
Date of Service: 08/21/22 Vital Signs Temp Pulse Resp BP Pulse Ox 98 F 91 H 19 165/75 H 97 08/21/22 09:26 08/21/22 09:26 08/21/22 09:26 08/21/22 09:26 08/21/22 09:26 Medications Acetaminophen (Acetaminophen 325 Mg Tablet) 650 mg PO Q6H PRN PRN Reason: TEMP > 100.4' F Last Admin: 08/17/22 06:53 Dose: 650 mg Hydrocodone Bitart/Acetaminophen (Hydrocodone/Apap 5/325 Mg Tab) 1 tab PO Q6H PRN PRN Reason: Pain scale 5-7 (Moderate) Last Admin: 08/21/22 06:01 Dose: 1 tab Albuterol Sulfate (Albuterol 2.5 Mg/3 Ml Neb Jesika) 2.5 mg NEB [id number] [facility] Last Admin: 08/21/22 08:00 Dose: 2.5 mg Aspirin (Aspirin 325 Mg Tab) 325 mg PO DAILY [facility] Last Admin: 08/21/22 09:39 Dose: 325 mg Cholecalciferol (Vitamin D 5,000 Unit Cap) 5,000 unit PO DAILY [facility] Stop: 08/23/22 09:01 Last Admin: 08/21/22 09:38 Dose: 5,000 unit Collagenase (Collagenase 30 Gm Ointment) 1 appl TOP DAILY [facility] Last Admin: 08/21/22 09:00 Dose: 1 appl Ergocalciferol (Drisdol (Vitamin D=Ergocalciferol) 30132 Unit Cap) 50,000 unit PO Q7D [facility] Last Admin: 08/19/22 08:54 Dose: Not Given Furosemide (Furosemide 40 Mg/4 Ml Vial) 40 mg IV BIDL [facility] Last Admin: 08/21/22 09:44 Dose: 40 mg Heparin Sodium (Porcine) (Heparin 5000 Unit/Ml 1 Ml Vial) 5,000 unit SQ Q12HR [facility] Last Admin: 08/21/22 09:40 Dose: 5,000 unit Home Med (Home Med 1 Ea Unk [Collagenase 30 Gm Ointment]) 1 ea TOP DAILY [facility] Last Admin: 08/21/22 09:00 Dose: Not Given Home Med (Fish Oil/Dha/Epa [Fish Oil 1,200 Mg Fish Oil]) 1 tab PO DAILY [facility] Last Admin: 08/21/22 09:00 Dose: Not Given Home Med (Methylcellulose (With Sugar) [Citrucel Powder]) 1 dose PO DAILY [facility] Last Admin: 08/21/22 09:00 Dose: Not Given Home Med (Mupirocin Cream) 1 dose TOP TID [facility] Last Admin: 08/21/22 09:00 Dose: Not Given Meropenem 1,000 mg/ Sodium (Chloride) 100 mls @ 200 mls/hr IV Q8HR [facility] Last Admin: 08/21/22 09:38 Dose: 100 mls Ferric Sodium Gluconate Complex 125 mg/ Sodium Chloride 110 mls @ 100 mls/hr IV DAILY [facility] Stop: 08/25/22 10:05 Last Admin: 08/21/22 09:37 Dose: 110 mls Vancomycin HCl 2 gm/ Sodium (Chloride) 500 mls @ 250 mls/hr IVPB Q36H [facility] Last Admin: 08/21/22 09:37 Dose: 500 mls Insulin Human Regular (Insulin -Regular Human 50 Unit/0.5 Ml Ml) 0 unit SQ ACHS [facility]; Protocol Last Admin: 08/21/22 09:37 Dose: 2 unit Ipratropium [place] (Ipratropium Brom 0.5mg/2.5ml) 0.5 mg NEB [id number] [facility] Last Admin: 08/21/22 08:00 Dose: 0.5 mg L-Arginine/L-Glutamine/HMB (Anup Packet) 1 pkt PO BID [facility] Last Admin: 08/21/22 09:00 Dose: 1 pkt Labetalol HCl (Labetalol 20 Mg/4ml Syringe) 10 mg IV Q6H PRN PRN Reason: sbp Last Admin: 08/21/22 06:02 Dose: 10 mg Lisinopril (Lisinopril 20 Mg Tab) 30 mg PO DAILY [facility] Last Admin: 08/21/22 09:39 Dose: 30 mg Nifedipine (Nifedipine Xl 60 Mg Tablet) 60 mg PO BID [facility] Last Admin: 08/21/22 09:38 Dose: 60 mg Ondansetron HCl (Ondansetron 4 Mg/2 Ml Vial) 4 mg IV Q6HP PRN PRN Reason: NAUSEA / VOMITING Prednisone (Prednisone 20 Mg Tab) 20 mg PO BID [facility] Stop: 08/23/22 13:26 Last Admin: 08/21/22 09:39 Dose: 20 mg Sodium Chloride (Flush Normal Saline 10 Ml) 10 ml IV BID [facility] Last Admin: 08/21/22 09:00 Dose: 10 ml Spironolactone (Spironolactone 25 Mg Tablet) 25 mg PO BID [facility] Last Admin: 08/21/22 09:38 Dose: 25 mg Venlafaxine HCl (Venlafaxine Hcl Xr 75 Mg Cap) 150 mg PO DAILY [facility] Last Admin: 08/21/22 09:38 Dose: 150 mg Microbiology Results 08/13/22 15:40 Blood - Blood Aerobic Blood Culture - Final No growth in 5 days. 08/13/22 15:40 Blood - Blood Anaerobic Blood Culture - Final No growth in 5 days. 08/13/22 14:55 Blood - Blood Aerobic Blood Culture - Final No growth in 5 days. 08/13/22 14:55 Blood - Blood Anaerobic Blood Culture - Final No growth in 5 days. Assessment/ Plan: Nephrology No dyspnea No chest pain Weakness and fatigue No acute events overnight Vitals, medications, blood work and imaging reviewed in the chart. NAD. Obese. NCAT. MMM. Neck supple. Normal respiratory effort. RRR. Abd ND. No C/C/E. No rash. AAO. Normal speech. [place] Stage I ESPERANZA, resolved Proteinuria -No NSAIDs Hypokalemia -Replete as ordered -Increase Lisinopril 20mg BID HypoPO4 -Replete as ordered HTN with CKD/ CHF -Increase Lisinopril 20mg BID -Start Coreg 6.25 BID Diastolic CHF, A/C -Continue furosemide and spironolactone DM II with CKD & left foot ulcer -RISS Iron Deficiency Anemia -Agree with IV iron
[2022-08-21] MEDS ORDERED: POTASSIUM CL SA 10 MEQ TAB PO ONE ×2 (12:00→21:00)
--- NOTE | 2022-08-21 13:05 | P.PN ---
Subjective Date of Service: 08/21/22 Chief Complaint: Left foot wound and AMS No acute events overnight. She states that her pain is decently controlled with her current pain regimen. CM has initiated process for LTAC placement. Appreciate Cardiology recommendations regarding peripheral angiogram. Review of Systems 10-point ROS is otherwise unremarkable Musculoskeletal: Foot Pain Physical Examination - Vital Signs Temperature: 98 F Blood Pressure: 165/75 Pulse: 91 Respirations: 19 Pulse Ox (%): 97 - Studies Medications List Reviewed: Yes Assessment And Plan - Plan - Physical Exam General: Alert, In no apparent distress, Oriented x3 HEENT: Atraumatic, Sclerae nonicteric Neck: JVD not distended Respiratory: Clear to auscultation bilaterally, Diminished Cardiovascular: No edema, Regular rate/rhythm, No murmurs Gastrointestinal: Soft and benign, Non-distended, No tenderness, No rebound, No guarding Musculoskeletal: No clubbing Integumentary: Diabetic ulcer, Other (left foot covered in surgical dressing) Neurological: Normal speech, Anxious affect # Type II Diabetes Mellitus complicated by Left Diabetic Foot Ulcer 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 No malalignment. Mild plantar and dorsal aspect calcaneal spurring. The appearance of the calcaneus is similar to 07/23/2022. No definite evidence of osteomyelitis. MRI could confirm if clinically indicated." - Bilateral lower extremity arterial Doppler = "no flow limiting stenosis within either lower extremity." - General Surgery consulted and spoke with Dr. Ledesma - recommendations appreciated - 08/18/2022 - Excisional debridement Left heel infected necrotic diabetic ulcer - He has cleared for discharge once cleared by Dr. Ann - Wound care consulted - Infectious Diseases consulted and spoke with Dr. Ann - recommendations appreciated - PICC line placed - plan for 6 weeks of vancomycin + meropenem - Correction scale insulin - Case management consulted for LTAC placement - initiated process for [facility] # Acute Chronic Obstructive Pulmonary Disease Exacerbation (improved) # SIRS Criteria (Tachypnea, Tachycardia) likely due to COPD Exacerbation No obvious trigger at this time. No evidence of infection. - Evaluation thus far: - Chest x-ray = "aeration of the lungs appears improved since 08/03/2022. No acute process identified" - Plan: - Continue DuoNebs + prednisone - Consulted Respiratory Therapy - Supplemental oxygen to maintain SpO2 > 92% - working on home oxygen arrangements - Assess inhaler technique one improved from COPD exacerbation - Encouraged incentive spirometry # Severe Peripheral Vascular Disease - Cardiology consulted and spoke with Dr. Cabrera - recommendations appreciated - Plans for peripheral angiogram when/if she is agreeable # KDIGO Stage I Acute Kidney Injury (resolved) # Microscopic Hematuria - Nephrology consulted and she was evaluated by Dr. Remy - recommendations appreciated - Creatinine = 1.39 -> 1.41 -> 1.17 -> 1.04 -> 0.86 - Urinalysis = 2+ blood, 3+ protein - Monitor creatinine and urine output - If worsening, obtain renal ultrasound - Renally dose medications # Iron Deficiency Anemia - Continue IV iron replacement # Hypertension - Continue home lisinopril, nifedipine, spironolactone Wes Richard M.D.
[2022-08-21] MEDS: carvediloL 6.25 MG TAB PO SCH (21:10)
[2022-08-22] MEDS: Meropenem 1,000 MG in NA CHLORIDE 0.9% 100 ML IV SCH ×3 (00:25→16:47)
[2022-08-22] MEDS: IPRATROPIUM BROM 0.5MG/2.5ML NEB SCH ×4 (01:32→19:10)
[2022-08-22] MEDS: ALBUTEROL 2.5 MG/3 ML NEB SOL NEB SCH ×4 (01:32→19:10)
[2022-08-22] MEDS: HYDROCODONE/APAP 5/325 MG TAB PO PRN ×2 (03:03→16:44)
[2022-08-22 06:34] LABS: Magnesium 2.1 mg/dL (1.6-2.4); Phosphorus 2.4 mg/dL (2.5-4.9)
[2022-08-22] MEDS: INSULIN -REGULAR HUMAN 50 UNIT/0.5 ML ML SQ SCH ×4 (08:47→21:00)
[2022-08-22] MEDS: SOD FERRIC GLUC COMPLX/SUCROSE 125 MG in NA CHLORIDE 0.9% 100 ML IV SCH (08:48)
[2022-08-22] MEDS: JUVEN PACKET PO SCH ×2 (08:59→21:00)
[2022-08-22] MEDS: METHYLCELLULOSE PO SCH (09:00)
[2022-08-22] MEDS: HOME MED 1 EA UNK (Fish Oil/Dha/Epa [Fish Oil 1,200 Mg Fish Oil] Capsule) PO SCH (09:00)
[2022-08-22] MEDS: COLLAGENASE TOP SCH (09:00)
[2022-08-22] MEDS: MUPIROCIN TOP SCH ×3 (09:00→21:00)
[2022-08-22] MEDS: POTASS/SODIUM PHOSPHATE 1 PKT POWD.PACK PO SCH ×3 (09:00→11:14)
[2022-08-22] MEDS: [UNRECOGNIZED DRUG - OTHER] PO SCH (09:00)
[2022-08-22] MEDS: VENLAFAXINE HCL XR 75 MG CAP PO SCH (09:01)
[2022-08-22] MEDS: NIFEDIPINE XL 60 MG TABLET PO SCH ×2 (09:01→21:09)
[2022-08-22] MEDS: predniSONE 20 MG TAB PO SCH ×2 (09:01→21:09)
[2022-08-22] MEDS: carvediloL 6.25 MG TAB PO SCH ×2 (09:01→21:10)
[2022-08-22] MEDS: lisinopriL 20 MG TAB PO SCH ×2 (09:02→21:09)
[2022-08-22] MEDS: VITAMIN D 5,000 UNIT CAP PO SCH (09:02)
[2022-08-22] MEDS: ASPIRIN 325 MG TAB PO SCH (09:02)
[2022-08-22] MEDS: SPIRONOLACTONE 25 MG TABLET PO SCH ×2 (09:02→21:10)
[2022-08-22] MEDS: FUROSEMIDE 40 MG/4 ML VIAL IV SCH (09:03)
[2022-08-22] MEDS: HEPARIN 5000 UNIT/ML 1 ML VIAL SQ SCH ×2 (09:03→21:09)
[2022-08-22] MEDS: COLLAGENASE 30 GM OINTMENT TOP SCH (09:03)
--- NOTE | 2022-08-22 12:00 | P.PN ---
Nephrology (S) Pt seen sitting up on the side of the bed, off O2, has continued to diurese well. However still reporting mild orthopnea when lying flat. (O) Vitals reviewed in the EMR General: In no apparent distress, Cooperative HEENT: Atraumatic, Normocephalic, PERRLA, off NC Neck: Supple Respiratory: Normal air movement, no rhonchi Cardiovascular: Regular rate/rhythm, Normal S1 S2 Gastrointestinal: Soft and benign, Non-distended, No tenderness, No rebound Musculoskeletal: No contractures, Other (Lt foot dressed). Edema improved Integumentary: Other (Did not examine left foot wound, see notes by the primary team for details) Neurological: Normal speech, Normal tone, Normal affect Laboratory Data (last 24 hrs) Reviewed in the EMR Conclusions/Impression: A/P) -Pt's labs on admission showed Stage 1 ESPERANZA in c/w prior labs which have shown Cr levels more within normal limits. Pt then likely had some intravascular vol depletion, compounded by concurrent use of NSAIDs, max dose ACEi, other. -Cr level remains stable since even as diuresed, risk for CHIKA with any angiogram is low. -Hypokalemia, severe on admission 2nd to chronic loop diuretic use, possible diarrhea and likely poor PO intake as phos was also low. Stable K levels thus far with diuresis -Dyspnea, hypoxia likely multifactorial. Pt has diuresed well over the past few days, will transition from IV lasix back to PO. -Trend BP, target BP < 140/90. Did titrate CCB dose. -Microcytic anemia, iron deficiency, pt on IV iron series per primary team Pete Remy MD, KATHRIN
--- NOTE | 2022-08-22 12:51 | P.PN ---
Subjective Date of Service: 08/22/22 Chief Complaint: Left foot wound and AMS No acute events overnight. She states that her pain is well controlled with her current pain regimen. CM has initiated process for LTAC placement. She is pending placement into [facility]. Appreciate Cardiology recommendations regarding peripheral angiogram. Review of Systems 10-point ROS is otherwise unremarkable Musculoskeletal: Other (left foot wound) Physical Examination - Vital Signs Temperature: 97.7 F Blood Pressure: 157/71 Pulse: 95 Respirations: 19 Pulse Ox (%): 93 - Studies Medications List Reviewed: Yes Assessment And Plan - Plan - Physical Exam General: Alert, In no apparent distress, Oriented x3 HEENT: Atraumatic, Sclerae nonicteric Neck: JVD not distended Respiratory: Clear to auscultation bilaterally, Diminished Cardiovascular: No edema, Regular rate/rhythm, No murmurs Gastrointestinal: Soft and benign, Non-distended, No tenderness, No rebound, No guarding Musculoskeletal: No clubbing Integumentary: Diabetic ulcer, Other (left foot covered in surgical dressing) Neurological: Normal speech, Anxious affect # Type II Diabetes Mellitus complicated by Left Diabetic Foot Ulcer 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 No malalignment. Mild plantar and dorsal aspect calcaneal spurring. The appearance of the calcaneus is similar to 07/23/2022. No definite evidence of osteomyelitis. MRI could confirm if clinically indicated." - Bilateral lower extremity arterial Doppler = "no flow limiting stenosis within either lower extremity." - General Surgery consulted and spoke with Dr. Ledesma - recommendations appreciated - 08/18/2022 - Excisional debridement Left heel infected necrotic diabetic ulcer - He has cleared for discharge once cleared by Dr. Ann - Wound care consulted - Infectious Diseases consulted and spoke with Dr. Ann - recommendations appreciated - PICC line placed - plan for 6 weeks of vancomycin + meropenem - Correction scale insulin - Case management consulted for LTAC placement - initiated process for [facility] # Acute Chronic Obstructive Pulmonary Disease Exacerbation (improved) # SIRS Criteria (Tachypnea, Tachycardia) likely due to COPD Exacerbation No obvious trigger at this time. No evidence of infection. - Evaluation thus far: - Chest x-ray = "aeration of the lungs appears improved since 08/03/2022. No acute process identified" - Plan: - Continue DuoNebs + prednisone - Consulted Respiratory Therapy - Supplemental oxygen to maintain SpO2 > 92% - CM working on home oxygen arrangements - Assess inhaler technique one improved from COPD exacerbation - Encouraged incentive spirometry # Severe Peripheral Vascular Disease - Cardiology consulted and spoke with Dr. Cabrera - recommendations appreciated - Plans for peripheral angiogram when/if she is agreeable # KDIGO Stage I Acute Kidney Injury (resolved) # Microscopic Hematuria - Nephrology consulted and she was evaluated by Dr. Remy - recommendations appreciated - Creatinine = 1.39 -> 1.41 -> 1.17 -> 1.04 -> 0.86 - Urinalysis = 2+ blood, 3+ protein - Monitor creatinine and urine output - If worsening, obtain renal ultrasound - Renally dose medications # Iron Deficiency Anemia - Continue IV iron replacement # Hypertension - Continue home lisinopril, nifedipine, spironolactone Awaiting placement into [facility]. Wes Richard M.D.
[2022-08-22] MEDS: VANCOMYCIN 2 GM in NA CHLORIDE 0.9% 500 ML IVPB SCH (21:10)
[2022-08-23] MEDS: Meropenem 1,000 MG in NA CHLORIDE 0.9% 100 ML IV SCH ×3 (01:00→17:20)
[2022-08-23] MEDS: ALBUTEROL 2.5 MG/3 ML NEB SOL NEB SCH ×4 (01:14→20:25)
[2022-08-23] MEDS: IPRATROPIUM BROM 0.5MG/2.5ML NEB SCH ×4 (01:14→20:25)
--- NOTE | 2022-08-23 01:54 | PN ---
Subjective: The patient is lying in bed, no new acute event. Chart reviewed. Objective: Vital Signs: Temperature 98, pulse 57, respirations 18, and blood pressure 159/73. Lungs: Basal crackles. Heart: S1, S2 regular. Abdomen: Soft, nontender. Bowel sounds present. Extremities: Left foot wound noted. Laboratory Data: BUN of 20, creatinine 0.9. WBC 2.9, hemoglobin 9.2, and platelets 352. Assessment And Plan: Left foot osteomyelitis, diabetic neuropathy, diabetic foot ulcer, diabetes chantelle litus, anemia of chronic disease, and leukopenia. Wound cultures growing Pseudomonas aeruginosa. Th e patient is currently on meropenem and vancomycin. Long-term acute care pending. We will follow e patient closely. NF/MODL Voice ID: [id number] Report ID: [id number]
[2022-08-23] MEDS: HYDROCODONE/APAP 5/325 MG TAB PO PRN ×3 (01:55→17:58)
[2022-08-23 04:00] LABS: Phosphorus 2.7 mg/dL (2.5-4.9)
[2022-08-23] MEDS: INSULIN -REGULAR HUMAN 50 UNIT/0.5 ML ML SQ SCH ×4 (08:53→21:50)
[2022-08-23] MEDS: VENLAFAXINE HCL XR 75 MG CAP PO SCH (08:56)
[2022-08-23] MEDS: SPIRONOLACTONE 25 MG TABLET PO SCH ×2 (08:57→21:56)
[2022-08-23] MEDS: NIFEDIPINE XL 60 MG TABLET PO SCH ×2 (08:58→21:56)
[2022-08-23] MEDS: FUROSEMIDE 40 MG TABLET PO SCH (08:59)
[2022-08-23] MEDS: ASPIRIN 325 MG TAB PO SCH (08:59)
[2022-08-23] MEDS: VITAMIN D 5,000 UNIT CAP PO SCH (08:59)
[2022-08-23] MEDS: COLLAGENASE TOP SCH (09:00)
[2022-08-23] MEDS: METHYLCELLULOSE PO SCH (09:00)
[2022-08-23] MEDS: HOME MED 1 EA UNK (Fish Oil/Dha/Epa [Fish Oil 1,200 Mg Fish Oil] Capsule) PO SCH (09:00)
[2022-08-23] MEDS: [UNRECOGNIZED DRUG - OTHER] PO SCH (09:00)
[2022-08-23] MEDS: MUPIROCIN TOP SCH ×3 (09:00→21:00)
[2022-08-23] MEDS: predniSONE 20 MG TAB PO SCH (09:01)
[2022-08-23] MEDS: HEPARIN 5000 UNIT/ML 1 ML VIAL SQ SCH ×2 (09:02→21:51)
[2022-08-23] MEDS: lisinopriL 20 MG TAB PO SCH ×2 (09:03→21:51)
[2022-08-23] MEDS: COLLAGENASE 30 GM OINTMENT TOP SCH (09:04)
[2022-08-23] MEDS: carvediloL 6.25 MG TAB PO SCH ×2 (09:17→21:52)
[2022-08-23] MEDS: JUVEN PACKET PO SCH ×2 (09:19→21:00)
[2022-08-23] MEDS: SOD FERRIC GLUC COMPLX/SUCROSE 125 MG in NA CHLORIDE 0.9% 100 ML IV SCH (09:56)
--- NOTE | 2022-08-23 22:09 | P.PN ---
Subjective Date of Service: 08/23/22 Chief Complaint: Left foot wound and AMS No acute events overnight. She denies any concerns this morning. She is pending placement into [facility]. Unlikely to occur over the weekend. Review of Systems 10-point ROS is otherwise unremarkable Integumentary: Other (left foot wound) Physical Examination - Vital Signs Temperature: 98.7 F Blood Pressure: 156/68 Pulse: 85 Respirations: 16 Pulse Ox (%): 93 - Studies Medications List Reviewed: Yes Assessment And Plan - Plan - Physical Exam General: Alert, In no apparent distress, Oriented x3 HEENT: Atraumatic, Sclerae nonicteric Neck: JVD not distended Respiratory: Clear to auscultation bilaterally, Diminished Cardiovascular: No edema, Regular rate/rhythm, No murmurs Gastrointestinal: Soft, Non-distended, No tenderness Musculoskeletal: No clubbing Integumentary: Diabetic ulcer, Other (left foot covered in surgical dressing) Neurological: Normal speech, Normal affect # Type II Diabetes Mellitus complicated by Left Diabetic Foot Ulcer 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 No malalignment. Mild plantar and dorsal aspect calcaneal spurring. The appearance of the calcaneus is similar to 07/23/2022. No definite evidence of osteomyelitis. MRI could confirm if clinical ly indicated." - Bilateral lower extremity arterial Doppler = "no flow limiting stenosis within either lower extremity." - General Surgery consulted and spoke with Dr. Ledesma - recommendations appre ciated - 08/18/2022 - Excisional debridement Left heel infected necrotic diabetic ulcer - He has cleared for discharge once cleared by Dr. Ann - Wound care consulted - Infectious Diseases consulted and spoke with Dr. Ann - recommendations appreciated - PICC line placed - plan for 6 weeks of vancomycin + meropenem - Correction scale insulin - Case management consulted for LTAC placement - initiated process for [facility] # Acute Chronic Obstructive Pulmonary Disease Exacerbation (improved) # SIRS Criteria (Tachypnea, Tachycardia) likely due to COPD Exacerbation No obvious trigger at this time. No evidence of infection. - Evaluation thus far: - Chest x-ray = "aeration of the lungs appears improved since 08/03/2022. No acute process identified" - Plan: - Continue DuoNebs + prednisone - Consulted Respiratory Therapy - Supplemental oxygen to maintain SpO2 > 92% - CM working on home oxygen arrangements - Assess inhaler technique one improved from COPD exacerbation - Encouraged incentive spirometry # Severe Peripheral Vascular Disease - Cardiology consulted and spoke with Dr. Cabrera - recommendations appreciated - Plans for peripheral angiogram when/if she is agreeable # KDIGO Stage I Acute Kidney Injury (resolved) # Microscopic Hematuria - Nephrology consulted and she was evaluated by Dr. Remy - recommendations appreciated - Creatinine = 1.39 -> 1.41 -> 1.17 -> 1.04 -> 0.86 - Urinalysis = 2+ blood, 3+ protein - Monitor creatinine and urine output - If worsening, obtain renal ultrasound - Renally dose medications # Iron Deficiency Anemia - Continue IV iron replacement # Hypertension - Continue home lisinopril, nifedipine, spironolactone Awaiting placement into [facility]. Unlikely to occur over the weekend. Wes Richard M.D.
[2022-08-24] MEDS: Meropenem 1,000 MG in NA CHLORIDE 0.9% 100 ML IV SCH ×3 (01:00→16:47)
[2022-08-24] MEDS: IPRATROPIUM BROM 0.5MG/2.5ML NEB SCH ×4 (02:00→21:50)
[2022-08-24] MEDS: ALBUTEROL 2.5 MG/3 ML NEB SOL NEB SCH ×4 (02:00→21:50)
[2022-08-24 03:55] LABS: Potassium 3.2 mmol/L (3.5-5.1)
[2022-08-24 04:19] LABS: Absolute Lymphocytes (CBC) 1.7 K/uL (0.7-4.9); Hematocrit 24.3 % (36.0-45.0); Lymphocytes % 74.6 % (15.3-44.8); RBC Red Blood Cell Count 3.24 M/uL (3.86-4.86)
[2022-08-24] MEDS: HYDROCODONE/APAP 5/325 MG TAB PO PRN ×2 (06:25→16:12)
[2022-08-24 08:20] LABS: Anisocytosis 2+; Blood Morphology Comment NOTED (NOT SEEN); Platelet Estimate ADEQ; Platelets, Giant FEW
[2022-08-24 08:21] LABS: Basophilic Stippling 1+; Hypochromasia 1+
[2022-08-24] MEDS: [UNRECOGNIZED DRUG - OTHER] PO SCH (09:00)
[2022-08-24] MEDS: COLLAGENASE TOP SCH (09:00)
[2022-08-24] MEDS: METHYLCELLULOSE PO SCH (09:00)
[2022-08-24] MEDS: MUPIROCIN TOP SCH ×3 (09:00→21:00)
[2022-08-24] MEDS: HOME MED 1 EA UNK (Fish Oil/Dha/Epa [Fish Oil 1,200 Mg Fish Oil] Capsule) PO SCH (09:00)
[2022-08-24] MEDS ORDERED: POTASSIUM CL SA 10 MEQ TAB PO ONE (09:00)
[2022-08-24] MEDS: INSULIN -REGULAR HUMAN 50 UNIT/0.5 ML ML SQ SCH ×4 (09:18→21:49)
[2022-08-24] MEDS: HEPARIN 5000 UNIT/ML 1 ML VIAL SQ SCH ×2 (09:20→21:49)
[2022-08-24] MEDS: lisinopriL 20 MG TAB PO SCH ×2 (09:20→21:50)
[2022-08-24] MEDS: NIFEDIPINE XL 60 MG TABLET PO SCH ×2 (09:21→21:49)
[2022-08-24] MEDS: FUROSEMIDE 40 MG TABLET PO SCH (09:21)
[2022-08-24] MEDS: VENLAFAXINE HCL XR 75 MG CAP PO SCH (09:21)
[2022-08-24] MEDS: ASPIRIN 325 MG TAB PO SCH (09:22)
[2022-08-24] MEDS: SPIRONOLACTONE 25 MG TABLET PO SCH ×2 (09:22→21:50)
[2022-08-24] MEDS: carvediloL 6.25 MG TAB PO SCH ×2 (09:22→21:50)
[2022-08-24] MEDS: COLLAGENASE 30 GM OINTMENT TOP SCH (09:26)
[2022-08-24] MEDS: JUVEN PACKET PO SCH ×2 (09:30→21:00)
[2022-08-24] MEDS: VANCOMYCIN 2 GM in NA CHLORIDE 0.9% 500 ML IVPB SCH (09:37)
--- NOTE | 2022-08-24 14:37 | P.PN ---
Subjective Date of Service: 08/24/22 Chief Complaint: Left foot wound and AMS No acute events overnight. She denies any concerns this morning. Her pain is well-controlled. Review of Systems 10-point ROS is otherwise unremarkable Physical Examination - Vital Signs Temperature: 98.3 F Blood Pressure: 140/61 Pulse: 74 Respirations: 16 Pulse Ox (%): 92 - Studies Medications List Reviewed: Yes Assessment And Plan - Plan - Physical Exam General: Alert, In no apparent distress, Oriented x3 HEENT: Atraumatic, Sclerae nonicteric Neck: JVD not distended Respiratory: Clear to auscultation bilaterally, Diminished Cardiovascular: No edema, Regular rate/rhythm, No murmurs Gastrointestinal: Soft, Non-distended, No tenderness Musculoskeletal: No clubbing Integumentary: Diabetic ulcer, Other (left foot covered in surgical dressing) Neurological: Normal speech, Normal affect # Type II Diabetes Mellitus complicated by Left Diabetic Foot Ulcer 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 No malalignment. Mild plantar and dorsal aspect calcaneal spurring. The appearance of the calcaneus is similar to 1 09/23/2021. No definite evidence of osteomyelitis. MRI could confirm if clinically indicated." - Bilateral lower extremity arterial Doppler = "no flow limiting stenosis within either lower extremity." - General Surgery consulted and spoke with Dr. Ledesma - recommendations appreciated - 08/18/2022 - Excisional debridement Left heel infected necrotic diabetic ulcer - He has cleared for discharge once cleared by Dr. Ann - Wound care consulted - Infectious Diseases consulted and spoke with Dr. Ann - recommendations appreciated - PICC line placed - plan for 6 weeks of vancomycin + meropenem - Correction scale insulin - Case management consulted for LTAC placement - initiated process for [facility] # Acute Chronic Obstructive Pulmonary Disease Exacerbation (improved) # SIRS Criteria (Tachypnea, Tachycardia) likely due to COPD Exacerbation No obvious trigger at this time. No evidence of infection. - Evaluation thus far: - Chest x-ray = "aeration of the lungs appears improved since 08/03/2022. No acute process identified" - Plan: - Continue DuoNebs + prednisone - Consulted Respiratory Therapy - Supplemental oxygen to maintain SpO2 > 92% - CM working on home oxygen arrangements - Assess inhaler technique one improved from COPD exacerbation - Encouraged incentive spirometry # Severe Peripheral Vascular Disease - Cardiology consulted and spoke with Dr. Cabrera - recommendations appreciated - Plans for peripheral angiogram when/if she is agreeable # KDIGO Stage I Acute Kidney Injury (resolved) # Microscopic Hematuria - Nephrology consulted and she was evaluated by Dr. Remy - recommendations appreciated - Creatinine = 1.39 -> 1.41 -> 1.17 -> 1.04 -> 0.86 - Urinalysis = 2+ blood, 3+ protein - Monitor creatinine and urine output - If worsening, obtain renal ultrasound - Renally dose medications # Iron Deficiency Anemia - Continue IV iron replacement # Hypertension - Continue home lisinopril, nifedipine, spironolactone No new changes. Awaiting placement into [facility]. Unlikely to occur over the weekend. Wes Richard M.D.
[2022-08-24] MEDS: SOD FERRIC GLUC COMPLX/SUCROSE 125 MG in NA CHLORIDE 0.9% 100 ML IV SCH (16:00)
[2022-08-25] MEDS: Meropenem 1,000 MG in NA CHLORIDE 0.9% 100 ML IV SCH ×3 (01:00→17:00)
[2022-08-25] MEDS: IPRATROPIUM BROM 0.5MG/2.5ML NEB SCH ×2 (02:10→07:55)
[2022-08-25] MEDS: ALBUTEROL 2.5 MG/3 ML NEB SOL NEB SCH ×2 (02:10→07:55)
[2022-08-25] MEDS: INSULIN -REGULAR HUMAN 50 UNIT/0.5 ML ML SQ SCH ×4 (07:30→20:52)
[2022-08-25] MEDS: [UNRECOGNIZED DRUG - OTHER] PO SCH (09:00)
[2022-08-25] MEDS: HOME MED 1 EA UNK (Fish Oil/Dha/Epa [Fish Oil 1,200 Mg Fish Oil] Capsule) PO SCH (09:00)
[2022-08-25] MEDS: METHYLCELLULOSE PO SCH (09:00)
[2022-08-25] MEDS: COLLAGENASE TOP SCH (09:00)
[2022-08-25] MEDS: JUVEN PACKET PO SCH ×2 (09:00→20:52)
[2022-08-25] MEDS: MUPIROCIN TOP SCH ×3 (09:00→20:52)
[2022-08-25] MEDS: ASPIRIN 325 MG TAB PO SCH (09:13)
[2022-08-25] MEDS: lisinopriL 20 MG TAB PO SCH ×2 (09:13→20:52)
[2022-08-25] MEDS: VENLAFAXINE HCL XR 75 MG CAP PO SCH (09:13)
[2022-08-25] MEDS: SPIRONOLACTONE 25 MG TABLET PO SCH ×2 (09:14→20:51)
[2022-08-25] MEDS: NIFEDIPINE XL 60 MG TABLET PO SCH ×2 (09:14→20:53)
[2022-08-25] MEDS: carvediloL 6.25 MG TAB PO SCH ×2 (09:15→20:51)
[2022-08-25] MEDS: SOD FERRIC GLUC COMPLX/SUCROSE 125 MG in NA CHLORIDE 0.9% 100 ML IV SCH (09:16)
[2022-08-25] MEDS: FUROSEMIDE 40 MG TABLET PO SCH (09:16)
[2022-08-25] MEDS: COLLAGENASE 30 GM OINTMENT TOP SCH (09:17)
--- NOTE | 2022-08-25 09:53 | P.PN ---
Subjective Date of Service: 08/25/22 Chief Complaint: Left foot wound and AMS Patient lying in bed with at the bedside. She is in good spirit and on 0.5 L of oxygen support. No major event upon examination Physical Examination - Vital Signs Temperature: 99.3 F Blood Pressure: 157/70 Pulse: 92 Respirations: 18 Pulse Ox (%): 92 - Physical Exam General: Alert, Oriented x3 Respiratory: Clear to auscultation bilaterally, Other (0.5 L NC) Cardiovascular: No edema, Normal S1 S2 Gastrointestinal: Normal bowel sounds Musculoskeletal: Tenderness (left heel diabetic wound with osteomyelitis) Integumentary: Skin lesion, Tenderness/swelling, Diabetic ulcer (left heel) Neurological: Normal speech, Normal tone, Normal affect - Studies Acetaminophen (Acetaminophen 325 Mg Tablet) 650 mg PO Q6H PRN PRN Reason: TEMP > 100.4' F Last Admin: 08/17/22 06:53 Dose: 650 mg Aspirin (Aspirin 325 Mg Tab) 325 mg PO DAILY [facility] Last Admin: 08/25/22 09:13 Dose: 325 mg Carvedilol (Carvedilol 6.25 Mg Tab) 6.25 mg PO BID [facility] Last Admin: 08/25/22 09:15 Dose: 6.25 mg Collagenase (Collagenase 30 Gm Ointment) 1 appl TOP DAILY [facility] Last Admin: 08/25/22 09:17 Dose: 1 appl Ergocalciferol (Drisdol (Vitamin D=Ergocalciferol) 80082 Unit Cap) 50,000 unit PO Q7D [facility] Last Admin: 08/19/22 08:54 Dose: Not Given Furosemide (Furosemide 40 Mg Tablet) 40 mg PO DAILY [facility] Last Admin: 08/25/22 09:16 Dose: 40 mg Heparin Sodium (Porcine) (Heparin 5000 Unit/Ml 1 Ml Vial) 5,000 unit SQ Q12HR [facility] Last Admin: 08/24/22 21:49 Dose: 5,000 unit Home Med (Home Med 1 Ea Unk [Collagenase 30 Gm Ointment]) 1 ea TOP DAILY [facility] Last Admin: 08/25/22 09:00 Dose: Not Given Home Med (Fish Oil/Dha/Epa [Fish Oil 1,200 Mg Fish Oil]) 1 tab PO DAILY [facility] Last Admin: 08/25/22 09:00 Dose: Not Given Home Med (Methylcellulose (With Sugar) [Citrucel Powder]) 1 dose PO DAILY [facility] Last Admin: 08/25/22 09:00 Dose: Not Given Home Med (Mupirocin Cream) 1 dose TOP TID [facility] Last Admin: 08/25/22 09:00 Dose: Not Given Meropenem 1,000 mg/ Sodium (Chloride) 100 mls @ 200 mls/hr IV Q8HR [facility] Last Admin: 08/25/22 09:00 Dose: 100 mls Ferric Sodium Gluconate Complex 125 mg/ Sodium Chloride 110 mls @ 100 mls/hr IV DAILY [facility] Stop: 08/25/22 10:05 Last Admin: 08/25/22 09:16 Dose: 110 mls Vancomycin HCl 2 gm/ Sodium (Chloride) 500 mls @ 250 mls/hr IVPB Q36H [facility] Insulin Human Regular (Insulin -Regular Human 50 Unit/0.5 Ml Ml) 0 unit SQ ACHS [facility]; Protocol Last Admin: 08/25/22 07:30 Dose: Not Given L-Arginine/L-Glutamine/HMB (Anup Packet) 1 pkt PO BID [facility] Last Admin: 08/25/22 09:00 Dose: 1 pkt Labetalol HCl (Labetalol 20 Mg/4ml Syringe) 10 mg IV Q6H PRN PRN Reason: sbp Last Admin: 08/21/22 06:02 Dose: 10 mg Lisinopril (Lisinopril 20 Mg Tab) 20 mg PO BID [facility] Last Admin: 08/25/22 09:13 Dose: 20 mg Nifedipine (Nifedipine Xl 60 Mg Tablet) 60 mg PO BID [facility] Last Admin: 08/25/22 09:14 Dose: 60 mg Ondansetron HCl (Ondansetron 4 Mg/2 Ml Vial) 4 mg IV Q6HP PRN PRN Reason: NAUSEA / VOMITING Sodium Chloride (Flush Normal Saline 10 Ml) 10 ml IV BID [facility] Last Admin: 08/25/22 09:00 Dose: 10 ml Spironolactone (Spironolactone 25 Mg Tablet) 25 mg PO BID [facility] Last Admin: 08/25/22 09:14 Dose: 25 mg Venlafaxine HCl (Venlafaxine Hcl Xr 75 Mg Cap) 150 mg PO DAILY [facility] Last Admin: 08/25/22 09:13 Dose: 150 mg Medications List Reviewed: Yes Assessment And Plan - Current Problems (Diagnosis) (1) Diabetic foot ulcer Current Visit: Yes Status: Acute Plan: Cultures: 08/13 BC: Negative 08/15 Wound left heel: Pseudomonas aeruginosa (Multi-drug Resistant) Imaging: - 08/13 Foot Xray: FINDINGS/IMPRESSION: No acute fracture. No malalignment. Mild plantar and dorsal aspect calcaneal spurring. The appearance of the calcaneus is similar to 07/23/2022. No definite evidence of osteomyelitis. MRI could confirm if clinically indicated. - 08/18 Dr. Ledesma performed excisional debridement of left heel infected necrotic diabetic ulcer Antibiotics: Current on IV Meropenem and Vancomycin (08/13 -> ) Recommendation: 1. Continue current IV antibiotics Meropenem for total of 6 weeks duration 2. Switch Vancomycin to IV Daptomycin to complete the total of 6 weeks duration 3. Elevated the affected leg to reduce edema and offload pressure 4. Hyperbaric oxygen therapy to promote wound healing and recovery 5. Consider LTAC placement for aggressive IV antibiotic management, diabetic sugar control, wound debridement and care with wound vac placement when improving 6. Apply Medihoney to the wound, cover with surgical dressing and secure with Kerlix daily and change when soiled Patient agrees to initiate the process for LTAC placement ID will closely monitoring the patient for signs of infection with fever and WBC trends. - Plan - Left foot wound - Acute pain - Acute encephalopathy. Unclear etiology. CT head unremarkable for any acute intracranial abnormality - Acute on chronic COPD exacerbation - Anemia of chronic disease: We will continue to monitor hemoglobin and transfuse if less than 7.0 - DM2 - Hypokalemia - ESPERANZA: Nephrology consulted - Hypertension Case has been discussed with Dr. Ann N Physician Review: Patient Assessed, Agree with Above Assessment and Plan
[2022-08-25] MEDS: HEPARIN 5000 UNIT/ML 1 ML VIAL SQ SCH ×2 (10:10→20:52)
[2022-08-25 10:13] LABS: Potassium 3.3 mmol/L (3.5-5.1)
[2022-08-25] MEDS ORDERED: POTASSIUM CL SA 10 MEQ TAB PO ONE (10:19)
[2022-08-25] MEDS: DAPTOmycin 500 MG in NA CHLORIDE 0.9% 100 ML IVPB SCH (14:13)
[2022-08-25] MEDS: ACETAMINOPHEN 325 MG TABLET PO PRN (18:02)
[2022-08-25] MEDS ORDERED: VANCOMYCIN 2 GM in NA CHLORIDE 0.9% 500 ML IVPB SCH (21:00)
[2022-08-26] MEDS: Meropenem 1,000 MG in NA CHLORIDE 0.9% 100 ML IV SCH ×3 (01:00→17:08)
[2022-08-26 05:09] LABS: Potassium 3.3 mmol/L (3.5-5.1)
[2022-08-26] MEDS: INSULIN -REGULAR HUMAN 50 UNIT/0.5 ML ML SQ SCH ×4 (07:30→21:59)
[2022-08-26] MEDS ORDERED: POTASSIUM CL SA 10 MEQ TAB PO ONE ×2 (09:00→17:00)
[2022-08-26] MEDS: HOME MED 1 EA UNK (Fish Oil/Dha/Epa [Fish Oil 1,200 Mg Fish Oil] Capsule) PO SCH (09:00)
[2022-08-26] MEDS: JUVEN PACKET PO SCH ×2 (09:00→21:00)
[2022-08-26] MEDS: [UNRECOGNIZED DRUG - OTHER] PO SCH (09:00)
[2022-08-26] MEDS: COLLAGENASE TOP SCH (09:00)
[2022-08-26] MEDS: MUPIROCIN TOP SCH ×3 (09:00→21:00)
[2022-08-26] MEDS: METHYLCELLULOSE PO SCH (09:00)
[2022-08-26] MEDS: lisinopriL 20 MG TAB PO SCH ×2 (09:25→22:00)
[2022-08-26] MEDS: VENLAFAXINE HCL XR 75 MG CAP PO SCH (09:25)
[2022-08-26] MEDS: ASPIRIN 325 MG TAB PO SCH (09:25)
[2022-08-26] MEDS: DRISDOL (VITAMIN D=ERGOCALCIFEROL) 50000 UNIT CAP PO SCH (09:25)
[2022-08-26] MEDS: FUROSEMIDE 40 MG TABLET PO SCH (09:26)
[2022-08-26] MEDS: NIFEDIPINE XL 60 MG TABLET PO SCH ×2 (09:26→22:00)
[2022-08-26] MEDS: SPIRONOLACTONE 25 MG TABLET PO SCH ×2 (09:26→22:01)
[2022-08-26] MEDS: ACETAMINOPHEN 325 MG TABLET PO PRN ×2 (09:27→17:07)
[2022-08-26] MEDS: carvediloL 6.25 MG TAB PO SCH ×2 (09:27→22:01)
[2022-08-26] MEDS: COLLAGENASE 30 GM OINTMENT TOP SCH (09:28)
[2022-08-26] MEDS: HEPARIN 5000 UNIT/ML 1 ML VIAL SQ SCH ×2 (10:35→22:00)
--- NOTE | 2022-08-26 11:24 | P.PN ---
Subjective Date of Service: 08/26/22 Chief Complaint: Left foot wound and AMS Patient lying in bed with at the bedside. She is in good spirit and still on 0.5 L of oxygen support. No major event upon examination Physical Examination - Vital Signs Temperature: 98.1 F Blood Pressure: 180/79 Pulse: 98 Respirations: 18 Pulse Ox (%): 93 - Physical Exam General: Alert, In no apparent distress, Oriented x3 Respiratory: Clear to auscultation bilaterally Cardiovascular: No edema, Normal S1 S2 Gastrointestinal: Normal bowel sounds Musculoskeletal: Swelling, Erythema, Tenderness, Other (left heel diabetic foot ulcer with osteomyelitis) Integumentary: Tenderness/swelling, Erythema, Diabetic ulcer (left heel diabetic foot ulcer with osteomyelitis) Neurological: Normal speech, Normal tone, Normal affect - Studies Acetaminophen (Acetaminophen 325 Mg Tablet) 650 mg PO Q6H PRN PRN Reason: TEMP > 100.4' F Last Admin: 08/26/22 09:27 Dose: 650 mg Aspirin (Aspirin 325 Mg Tab) 325 mg PO DAILY [facility] Last Admin: 08/26/22 09:25 Dose: 325 mg Carvedilol (Carvedilol 6.25 Mg Tab) 6.25 mg PO BID [facility] Last Admin: 08/26/22 09:27 Dose: 6.25 mg Collagenase (Collagenase 30 Gm Ointment) 1 appl TOP DAILY [facility] Last Admin: 08/26/22 09:28 Dose: 1 appl Ergocalciferol (Drisdol (Vitamin D=Ergocalciferol) 95849 Unit Cap) 50,000 unit PO Q7D [facility] Last Admin: 08/26/22 09:25 Dose: 50,000 unit Furosemide (Furosemide 40 Mg Tablet) 40 mg PO DAILY [facility] Last Admin: 08/26/22 09:26 Dose: 40 mg Heparin Sodium (Porcine) (Heparin 5000 Unit/Ml 1 Ml Vial) 5,000 unit SQ Q12HR [facility] Last Admin: 08/26/22 10:35 Dose: 5,000 unit Home Med (Home Med 1 Ea Unk [Collagenase 30 Gm Ointment]) 1 ea TOP DAILY [facility] Last Admin: 08/26/22 09:00 Dose: Not Given Home Med (Fish Oil/Dha/Epa [Fish Oil 1,200 Mg Fish Oil]) 1 tab PO DAILY [facility] Last Admin: 08/26/22 09:00 Dose: Not Given Home Med (Methylcellulose (With Sugar) [Citrucel Powder]) 1 dose PO DAILY [facility] Last Admin: 08/26/22 09:00 Dose: Not Given Home Med (Mupirocin Cream) 1 dose TOP TID [facility] Last Admin: 08/26/22 09:00 Dose: Not Given Meropenem 1,000 mg/ Sodium (Chloride) 100 mls @ 200 mls/hr IV Q8HR [facility] Last Admin: 08/26/22 09:27 Dose: 100 mls Daptomycin 500 mg/ Sodium (Chloride) 100 mls @ 100 mls/hr IVPB Q24H [facility] Last Admin: 08/25/22 14:13 Dose: 100 mls Insulin Human Regular (Insulin -Regular Human 50 Unit/0.5 Ml Ml) 0 unit SQ ACHS [facility]; Protocol Last Admin: 08/26/22 07:30 Dose: Not Given L-Arginine/L-Glutamine/HMB (Anup Packet) 1 pkt PO BID [facility] Last Admin: 08/26/22 09:00 Dose: 1 pkt Labetalol HCl (Labetalol 20 Mg/4ml Syringe) 10 mg IV Q6H PRN PRN Reason: sbp Last Admin: 08/21/22 06:02 Dose: 10 mg Lisinopril (Lisinopril 20 Mg Tab) 20 mg PO BID [facility] Last Admin: 08/26/22 09:25 Dose: 20 mg Nifedipine (Nifedipine Xl 60 Mg Tablet) 60 mg PO BID [facility] Last Admin: 08/26/22 09:26 Dose: 60 mg Ondansetron HCl (Ondansetron 4 Mg/2 Ml Vial) 4 mg IV Q6HP PRN PRN Reason: NAUSEA / VOMITING Sodium Chloride (Flush Normal Saline 10 Ml) 10 ml IV BID [facility] Last Admin: 08/26/22 09:00 Dose: 10 ml Spironolactone (Spironolactone 25 Mg Tablet) 25 mg PO BID [facility] Last Admin: 08/26/22 09:26 Dose: 25 mg Venlafaxine HCl (Venlafaxine Hcl Xr 75 Mg Cap) 150 mg PO DAILY [facility] Last Admin: 08/26/22 09:25 Dose: 150 mg Microbiology Data (last 24 hrs): Microbiology 08/13/22 15:40 Blood - Blood Aerobic Blood Culture - Final No growth in 5 days. 08/13/22 15:40 Blood - Blood Anaerobic Blood Culture - Final No growth in 5 days. 08/13/22 14:55 Blood - Blood Aerobic Blood Culture - Final No growth in 5 days. 08/13/22 14:55 Blood - Blood Anaerobic Blood Culture - Final No growth in 5 days. Medications List Reviewed: Yes Assessment And Plan - Current Problems (Diagnosis) (1) Diabetic foot ulcer with osteomyelitis Current Visit: Yes Status: Acute Plan: Cultures: 08/13 BC: Negative 08/15 Wound left heel: Pseudomonas aeruginosa (Multi-drug Resistant) Imaging: - 08/13 Foot Xray: FINDINGS/IMPRESSION: No acute fracture. No malalignment. Mild plantar and dorsal aspect calcaneal spurring. The appearance of the calcaneus is similar to 07/23/2022. No definite evidence of osteomyelitis. MRI could confirm if clinically indicated. - 08/18 Dr. Ledesma performed excisional debridement of left heel infected necrotic diabetic ulcer Antibiotics: Had IV Vancymycin 08/13 to 08/25 Current on IV Meropenem (08/13 to) and Daptomycin (08/25 to) Recommendation: 1. Continue current IV antibiotics Meropenem for total of 6 weeks duration 2. Added IV Daptomycin to complete the total of 6 weeks duration 3. Elevated the affected leg to reduce edema and offload pressure 4. Hyperbaric oxygen therapy to promote wound healing and recovery 5. Consider LTAC placement for aggressive IV antibiotic management, diabetic sugar control, wound debridement and care with wound vac placement when improving 6. Apply Medihoney to the wound, cover with surgical dressing and secure with Kerlix daily and change when soiled Patient agrees to initiate the process for LTAC placement ID will closely monitoring the patient for signs of infection with fever and WBC trends - Plan - Diabetic foot ulcer with osteomyelitis - Acute pain - Acute encephalopathy. Unclear etiology. CT head unremarkable for any acute intracranial abnormality - Acute on chronic COPD exacerbation - Anemia of chronic disease: We will continue to monitor hemoglobin and transfuse if less than 7.0 - DM2 - Hypokalemia - ESPERANZA: Nephrology consulted - Hypertension Case has been discussed with Dr. Ann, N Physician Review: Patient Assessed, Agree with Above Assessment and Plan
[2022-08-26] MEDS: DAPTOmycin 500 MG in NA CHLORIDE 0.9% 100 ML IVPB SCH (13:55)
[2022-08-27] MEDS: Meropenem 1,000 MG in NA CHLORIDE 0.9% 100 ML IV SCH ×3 (00:46→16:04)
[2022-08-27 04:35] LABS: Potassium 3.9 mmol/L (3.5-5.1)
[2022-08-27] MEDS: INSULIN -REGULAR HUMAN 50 UNIT/0.5 ML ML SQ SCH ×4 (07:30→20:14)
[2022-08-27] MEDS: carvediloL 6.25 MG TAB PO SCH ×2 (09:00→20:12)
[2022-08-27] MEDS: NIFEDIPINE XL 60 MG TABLET PO SCH ×2 (09:00→20:12)
[2022-08-27] MEDS: MUPIROCIN TOP SCH ×3 (09:00→20:14)
[2022-08-27] MEDS: SPIRONOLACTONE 25 MG TABLET PO SCH ×2 (09:00→20:11)
[2022-08-27] MEDS: FUROSEMIDE 40 MG TABLET PO SCH (09:00)
[2022-08-27] MEDS: lisinopriL 20 MG TAB PO SCH ×2 (09:00→20:12)
[2022-08-27] MEDS: JUVEN PACKET PO SCH ×2 (09:00→20:14)
[2022-08-27] MEDS: COLLAGENASE 30 GM OINTMENT TOP SCH (09:00)
[2022-08-27] MEDS: [UNRECOGNIZED DRUG - OTHER] PO SCH (09:00)
[2022-08-27] MEDS: VENLAFAXINE HCL XR 75 MG CAP PO SCH (09:00)
[2022-08-27] MEDS: HEPARIN 5000 UNIT/ML 1 ML VIAL SQ SCH ×2 (09:00→20:13)
[2022-08-27] MEDS: HOME MED 1 EA UNK (Fish Oil/Dha/Epa [Fish Oil 1,200 Mg Fish Oil] Capsule) PO SCH (09:00)
[2022-08-27] MEDS: COLLAGENASE TOP SCH (09:00)
[2022-08-27] MEDS: METHYLCELLULOSE PO SCH (09:00)
[2022-08-27] MEDS: ASPIRIN 325 MG TAB PO SCH (09:00)
--- NOTE | 2022-08-27 09:14 | P.PN ---
Subjective Date of Service: 08/27/22 Chief Complaint: Left foot wound and AMS Patient went for excisional debridement of left heel infected diabetic ulcer Physical Examination - Vital Signs Temperature: 97.2 F Blood Pressure: 153/70 Pulse: 98 Respirations: 18 Pulse Ox (%): 94 - Studies Acetaminophen (Acetaminophen 325 Mg Tablet) 650 mg PO Q6H PRN PRN Reason: TEMP > 100.4' F Last Admin: 08/26/22 17:07 Dose: 650 mg Aspirin (Aspirin 325 Mg Tab) 325 mg PO DAILY [facility] Last Admin: 08/27/22 09:00 Dose: Not Given Carvedilol (Carvedilol 6.25 Mg Tab) 6.25 mg PO BID [facility] Last Admin: 08/27/22 09:00 Dose: Not Given Collagenase (Collagenase 30 Gm Ointment) 1 appl TOP DAILY [facility] Last Admin: 08/27/22 09:00 Dose: 1 appl Ergocalciferol (Drisdol (Vitamin D=Ergocalciferol) 82841 Unit Cap) 50,000 unit PO Q7D [facility] Last Admin: 08/26/22 09:25 Dose: 50,000 unit Furosemide (Furosemide 40 Mg Tablet) 40 mg PO DAILY [facility] Last Admin: 08/27/22 09:00 Dose: Not Given Heparin Sodium (Porcine) (Heparin 5000 Unit/Ml 1 Ml Vial) 5,000 unit SQ Q12HR [facility] Last Admin: 08/27/22 09:00 Dose: Not Given Home Med (Home Med 1 Ea Unk [Collagenase 30 Gm Ointment]) 1 ea TOP DAILY [facility] Last Admin: 08/27/22 09:00 Dose: Not Given Home Med (Fish Oil/Dha/Epa [Fish Oil 1,200 Mg Fish Oil]) 1 tab PO DAILY [facility] Last Admin: 08/27/22 09:00 Dose: Not Given Home Med (Methylcellulose (With Sugar) [Citrucel Powder]) 1 dose PO DAILY [facility] Last Admin: 08/27/22 09:00 Dose: Not Given Home Med (Mupirocin Cream) 1 dose TOP TID [facility] Last Admin: 08/27/22 09:00 Dose: Not Given Meropenem 1,000 mg/ Sodium (Chloride) 100 mls @ 200 mls/hr IV Q8HR [facility] Last Admin: 08/27/22 09:05 Dose: 100 mls Daptomycin 500 mg/ Sodium (Chloride) 100 mls @ 100 mls/hr IVPB Q24H [facility] Last Admin: 08/26/22 13:55 Dose: 100 mls Insulin Human Regular (Insulin -Regular Human 50 Unit/0.5 Ml Ml) 0 unit SQ ACHS [facility]; Protocol Last Admin: 08/27/22 07:30 Dose: Not Given L-Arginine/L-Glutamine/HMB (Anup Packet) 1 pkt PO BID [facility] Last Admin: 08/27/22 09:00 Dose: Not Given Labetalol HCl (Labetalol 20 Mg/4ml Syringe) 10 mg IV Q6H PRN PRN Reason: sbp Last Admin: 08/21/22 06:02 Dose: 10 mg Lisinopril (Lisinopril 20 Mg Tab) 20 mg PO BID [facility] Last Admin: 08/27/22 09:00 Dose: Not Given Nifedipine (Nifedipine Xl 60 Mg Tablet) 60 mg PO BID [facility] Last Admin: 08/27/22 09:00 Dose: Not Given Ondansetron HCl (Ondansetron 4 Mg/2 Ml Vial) 4 mg IV Q6HP PRN PRN Reason: NAUSEA / VOMITING Sodium Chloride (Flush Normal Saline 10 Ml) 10 ml IV BID [facility] Last Admin: 08/27/22 09:00 Dose: 10 ml Spironolactone (Spironolactone 25 Mg Tablet) 25 mg PO BID [facility] Last Admin: 08/27/22 09:00 Dose: Not Given Venlafaxine HCl (Venlafaxine Hcl Xr 75 Mg Cap) 150 mg PO DAILY [facility] Last Admin: 08/27/22 09:00 Dose: Not Given Microbiology Data (last 24 hrs): Microbiology 08/13/22 15:40 Blood - Blood Aerobic Blood Culture - Final No growth in 5 days. 08/13/22 15:40 Blood - Blood Anaerobic Blood Culture - Final No growth in 5 days. 08/13/22 14:55 Blood - Blood Aerobic Blood Culture - Final No growth in 5 days. 08/13/22 14:55 Blood - Blood Anaerobic Blood Culture - Final No growth in 5 days. Medications List Reviewed: Yes Assessment And Plan - Current Problems (Diagnosis) (1) Diabetic foot ulcer with osteomyelitis Current Visit: Yes Status: Acute Plan: Cultures: 08/13 BC: Negative 08/15 Wound left heel: Pseudomonas aeruginosa (Multi-drug Resistant) Imaging: - 08/13 Foot Xray: FINDINGS/IMPRESSION: No acute fracture. No malalignment. Mild plantar and dorsal aspect calcaneal spurring. The appearance of the calcaneus is similar to 07/23/2022. No definite evidence of osteomyelitis. MRI could confirm if clinically indicated. - 08/18 Dr. Ledesma performed excisional debridement of left heel infected necrotic diabetic ulcer - 08/27 Dr. Ledesma performed excisional debridement of left heel infected necrotic diabetic ulcer Antibiotics: Had IV Vancymycin 08/13 to 08/25 Current on IV Meropenem (08/13 to) and Daptomycin (08/25 to) Recommendation: 1. Continue current IV antibiotics Meropenem for total of 6 weeks duration 2. Added IV Daptomycin to complete the total of 6 weeks duration 3. Elevated the affected leg to reduce edema and offload pressure 4. Hyperbaric oxygen therapy to promote wound healing and recovery 5. Consider LTAC placement for aggressive IV antibiotic management, diabetic sugar control, wound debridement and care with wound vac placement when improving 6. Apply Medihoney to the wound, cover with surgical dressing and secure with Kerlix daily and change when soiled Patient agrees to initiate the process for LTAC placement ID will closely monitoring the patient for signs of infection with fever and WBC trends - Plan - Diabetic foot ulcer with osteomyelitis - Acute pain - Acute encephalopathy. Unclear etiology. CT head unremarkable for any acute intracranial abnormality - Acute on chronic COPD exacerbation - Anemia of chronic disease: We will continue to monitor hemoglobin and transfuse if less than 7.0 - DM2 - Hypokalemia - ESPERANZA: Nephrology consulted - Hypertension Case has been discussed with Dr. Ann N Physician Review: Patient Assessed, Agree with Above Assessment and Plan
[2022-08-27] MEDS ORDERED: NA CHLORIDE 0.9% 1,000 ML ONE (09:49)
[2022-08-27] MEDS ORDERED: FENTANYL CITR 100 MCG/2 ML ONE ×2 (11:10→12:53)
[2022-08-27] MEDS ORDERED: ONDANSETRON 4 MG/2 ML VIAL ONE (11:10)
[2022-08-27] MEDS ORDERED: propofoL 200 MG/20 ML VIAL IV ONE (11:10)
[2022-08-27] MEDS ORDERED: MIDAZOLAM HCL 2 MG/2 ML INJ ONE (11:10)
[2022-08-27] MEDS ORDERED: LIDOCAINE 2% MPF 5 ML VIAL ONE (11:11)
[2022-08-27] MEDS ORDERED: BUPIVACAINE 0.5% PF 10 ML VIAL ONE (11:32)
--- NOTE | 2022-08-27 12:22 | P.BOP ---
Preoperative diagnosis: Left heel infected diabetic ulcer Postoperative diagnosis: same Primary procedure: Excisional debridement Left heel infected diabetic ulcer 12x4x1.5cm Estimated blood loss: <10cc Specimen: none Findings: as above Anesthesia: General Complications: None Transferred to: Recovery Room Condition: Good
[2022-08-27] MEDS ORDERED: KETOROLAC 30 MG/ML INJ ONE (12:29)
[2022-08-27] MEDS: DAPTOmycin 500 MG in NA CHLORIDE 0.9% 100 ML IVPB SCH (13:54)
--- NOTE | 2022-08-27 15:06 | OP ---
Date of Procedure: 08/27/2022 Surgeon: Minh Ledesma MD Preoperative Diagnosis: Infected left heel diabetic ulcer. Postoperative Diagnosis: Infected left heel diabetic ulcer. Procedure: Excisional debridement of left heel infected diabetic ulcer 12 x 4 x 1.5 cm. Estimated Blood Loss: Less than 10 mL. Specimen: None. Anesthesia: General plus local. Findings: Stage IV ulcer. Complications: None. Indication: This is the case of a 62-year-old patient with history of severe peripheral vascular dis ease with an infected diabetic ulcer requiring multiple debridements. Right now, she once again deve loped some devitalized tissue in that area so we put her for a debridement. She is very tender. She does not want to do it under just local, so she was brought to the OR for some sedation and local an esthetic. The benefits, alternatives, and risks were fully explained to the patient, which include, but not limited to infection, bleeding, damage to adjacent structures, anesthesia complication, nonhe aling wound, MS, and even . She also understands this may not relieve any symptoms. She might need more than one surgical intervention. She has recent workup done showing a microcirculation dise ase on the left heel area, which worked against her healing. Also pressure is not helping, although we kept her reminding her about offloading that area. Procedure In Detail: The patient was brought to the operating room, placed in supine position. Anes thesia was done without complication. Left heel was prepped and draped in the usual sterile fashion. We proceeded to start to do subcutaneous debridement with the help of a sharp knife and 11 blade, p ickups. There was a tunnel we found between 2 ulcers in that region that have to be opened. That ar ea was once again debrided from devitalized tissue seen. The area was about 12 x 4 x 1.5 cm. Hemost asis was obtained. The area was profusely irrigated and then packed with wet-to-dry dressing. The p atient tolerated the procedure well. The patient was sent to recovery in stable condition. KEY/QAMAR Voice ID: [id number] Report ID: [id number]
[2022-08-27] MEDS: HYDROMORPHONE HCL 0.5 MG/0.5 ML INJ IV PRN (20:13)
[2022-08-28] MEDS: Meropenem 1,000 MG in NA CHLORIDE 0.9% 100 ML IV SCH ×3 (01:08→17:29)
--- NOTE | 2022-08-28 02:00 | P.PN ---
Date of Service: 08/25/22 Subjective Pt is a 62-year-old female who has a history of diabetic foot wound with osteomyelitis that has developed with her not taking good care of it. Patient has been following up with Dr. Ledesma and he has debrided the wound on multiple occasions. Patient was discharged with IV antibiotics and the wound continues to worsen. Dr. Ledesma was concerned that patient had significant femoral arterial disease. Arterial Doppler was negative so it does appear that patient may have small vessel disease that is causing progression of the wound. No further cardiac intervention is necessary at this time. Dr. Ledesma will try to debride the wound. Patient waiting for LTAC placement Physical Examination - Vital Signs Reviewed - Physical Exam General: Alert, In no apparent distress Respiratory: Diminished bibasilar Cardiovascular: Regular rate/rhythm, Normal S1 S2 Gastrointestinal: Normal bowel sounds, No tenderness Musculoskeletal: No tenderness Integumentary: Wound to the left side of the foot and heel which appears to be open and with drainage Neurological: No focal deficits Assessment & Plan - Problems (Diagnosis) (1) COPD exacerbation Current Visit: Yes Status: Acute (2) Osteomyelitis of foot, left, acute Current Visit: No Status: Acute (3) Type 2 diabetes mellitus with foot ulcer Current Visit: No Status: Acute (4) Obesity hypoventilation syndrome Current Visit: No Status: Acute - Plan Continue with plan of care as mentioned below: 1. Continue with IV antibiotic; PICC line in place 2. Continue with local wound care to the left foot 3. Wound care consultation/surgical consultation appreciated 4. Heplock IV 5. Continue with BiPAP support while asleep 6. Strict BS monitoring 7. LTAC placement 8. Plan to go to OR in AM, 08/28 for debridement; continue with IV antibiotics x6 weeks 9. GI and DVT prophylaxis
--- NOTE | 2022-08-28 02:03 | P.PN ---
Date of Service: 08/26/22 Subjective Pt is a 62-year-old female who has a history of diabetic foot wound with osteomyelitis that has developed with her not taking good care of it. Patient has been following up with Dr. Ledesma and he has debrided the wound on multiple occasions. Patient was discharged with IV antibiotics and the wound continues to worsen. Dr. Ledesma was concerned that patient had significant femoral arterial disease. Arterial Doppler was negative so it does appear that patient may have small vessel disease that is causing progression of the wound. No further cardiac intervention is necessary at this time. Dr. Ledesma will try to debride the wound. Patient waiting for LTAC placement Physical Examination - Vital Signs Reviewed - Physical Exam General: Alert, In no apparent distress Respiratory: Diminished bibasilar Cardiovascular: Regular rate/rhythm, Normal S1 S2 Gastrointestinal: Normal bowel sounds, No tenderness Musculoskeletal: No tenderness Integumentary: Dressing C/D/I Neurological: No focal deficits Assessment & Plan - Problems (Diagnosis) (1) COPD exacerbation Current Visit: Yes Status: Acute (2) Osteomyelitis of foot, left, acute Current Visit: No Status: Acute (3) Type 2 diabetes mellitus with foot ulcer Current Visit: No Status: Acute (4) Obesity hypoventilation syndrome Current Visit: No Status: Acute - Plan Continue with plan of care as mentioned below: 1. Continue with IV antibiotic; PICC line in place 2. Continue with local wound care to the left foot 3. Wound care consultation/surgical consultation appreciated 4. Heplock IV 5. Continue with BiPAP support while asleep 6. Strict BS monitoring 7. LTAC placement 8. Plan to go to OR in AM, 08/28 for debridement; continue with IV antibiotics x6 weeks 9. GI and DVT prophylaxis
--- NOTE | 2022-08-28 02:05 | P.PN ---
Date of Service: 08/27/22 Subjective Pt waiting for placement; to OR today Physical Examination - Vital Signs Reviewed - Physical Exam General: Alert, In no apparent distress Respiratory: Diminished bibasilar Cardiovascular: Regular rate/rhythm, Normal S1 S2 Gastrointestinal: Normal bowel sounds, No tenderness Musculoskeletal: No tenderness Integumentary: Dressing C/D/I Neurological: No focal deficits Assessment & Plan - Problems (Diagnosis) (1) COPD exacerbation Current Visit: Yes Status: Acute (2) Osteomyelitis of foot, left, acute Current Visit: No Status: Acute (3) Type 2 diabetes mellitus with foot ulcer Current Visit: No Status: Acute (4) Obesity hypoventilation syndrome Current Visit: No Status: Acute - Plan Continue with plan of care as mentioned below: 1. Continue with IV antibiotic; PICC line in place 2. Continue with local wound care to the left foot 3. Wound care consultation/surgical consultation appreciated 4. Heplock IV 5. Continue with BiPAP support while asleep 6. Strict BS monitoring 7. LTAC placement 8. Plan to go to OR on 08/28 for debridement; continue with IV antibiotics x6 weeks 9. GI and DVT prophylaxis
[2022-08-28] MEDS: INSULIN -REGULAR HUMAN 50 UNIT/0.5 ML ML SQ SCH ×4 (07:30→20:04)
[2022-08-28] MEDS: HEPARIN 5000 UNIT/ML 1 ML VIAL SQ SCH ×2 (08:47→20:06)
[2022-08-28] MEDS: NIFEDIPINE XL 60 MG TABLET PO SCH ×2 (08:49→20:06)
[2022-08-28] MEDS: VENLAFAXINE HCL XR 75 MG CAP PO SCH (08:50)
[2022-08-28] MEDS: lisinopriL 20 MG TAB PO SCH ×2 (08:50→20:05)
[2022-08-28] MEDS: ASPIRIN 325 MG TAB PO SCH (08:50)
[2022-08-28] MEDS: SPIRONOLACTONE 25 MG TABLET PO SCH ×2 (08:50→20:06)
[2022-08-28] MEDS: carvediloL 6.25 MG TAB PO SCH ×2 (08:50→20:06)
[2022-08-28] MEDS: FUROSEMIDE 40 MG TABLET PO SCH (08:51)
[2022-08-28] MEDS: METHYLCELLULOSE PO SCH (08:51)
[2022-08-28] MEDS: JUVEN PACKET PO SCH ×2 (08:51→20:07)
[2022-08-28] MEDS: [UNRECOGNIZED DRUG - OTHER] PO SCH (08:51)
[2022-08-28] MEDS: HOME MED 1 EA UNK (Fish Oil/Dha/Epa [Fish Oil 1,200 Mg Fish Oil] Capsule) PO SCH (08:51)
[2022-08-28] MEDS: COLLAGENASE TOP SCH (08:51)
[2022-08-28] MEDS: MUPIROCIN TOP SCH ×3 (08:52→20:07)
[2022-08-28] MEDS: COLLAGENASE 30 GM OINTMENT TOP SCH (08:52)
--- NOTE | 2022-08-28 08:59 | P.PN ---
Subjective Date of Service: 08/28/22 Chief Complaint: Left foot wound and AMS Patient is lethargy secondary to pain medication s/p excisional debridement of left heel infected diabetic ulcer. at the bedside Physical Examination - Vital Signs Temperature: 98.5 F Blood Pressure: 178/77 Pulse: 79 Respirations: 19 Pulse Ox (%): 92 - Physical Exam General: In no apparent distress, Other (lethargy due to pain medication ) Respiratory: Clear to auscultation bilaterally, Other (.5 L NC) Cardiovascular: Normal pulses, Normal S1 S2 Gastrointestinal: Normal bowel sounds Musculoskeletal: Swelling, Erythema, Tenderness, Other (diabetic foot ulcer and cellulitis, right) Integumentary: Tenderness/swelling, Erythema, Diabetic ulcer (diabetic foot ulcer and cellulitis, right) Neurological: Normal speech, Normal tone, Normal affect - Studies Acetaminophen (Acetaminophen 325 Mg Tablet) 650 mg PO Q6H PRN PRN Reason: TEMP > 100.4' F Last Admin: 08/26/22 17:07 Dose: 650 mg Aspirin (Aspirin 325 Mg Tab) 325 mg PO DAILY [facility] Last Admin: 08/27/22 09:00 Dose: Not Given Carvedilol (Carvedilol 6.25 Mg Tab) 6.25 mg PO BID [facility] Last Admin: 08/27/22 20:12 Dose: 6.25 mg Collagenase (Collagenase 30 Gm Ointment) 1 appl TOP DAILY [facility] Last Admin: 08/27/22 09:00 Dose: 1 appl Ergocalciferol (Drisdol (Vitamin D=Ergocalciferol) 64165 Unit Cap) 50,000 unit PO Q7D [facility] Last Admin: 08/26/22 09:25 Dose: 50,000 unit Furosemide (Furosemide 40 Mg Tablet) 40 mg PO DAILY [facility] Last Admin: 08/27/22 09:00 Dose: Not Given Heparin Sodium (Porcine) (Heparin 5000 Unit/Ml 1 Ml Vial) 5,000 unit SQ Q12HR [facility] Last Admin: 08/27/22 20:13 Dose: 5,000 unit Home Med (Home Med 1 Ea Unk [Collagenase 30 Gm Ointment]) 1 ea TOP DAILY [facility] Last Admin: 08/27/22 09:00 Dose: Not Given Home Med (Fish Oil/Dha/Epa [Fish Oil 1,200 Mg Fish Oil]) 1 tab PO DAILY [facility] Last Admin: 08/27/22 09:00 Dose: Not Given Home Med (Methylcellulose (With Sugar) [Citrucel Powder]) 1 dose PO DAILY [facility] Last Admin: 08/27/22 09:00 Dose: Not Given Home Med (Mupirocin Cream) 1 dose TOP TID [facility] Last Admin: 08/27/22 20:14 Dose: Not Given Hydromorphone HCl (Hydromorphone Hcl 0.5 Mg/0.5 Ml Inj) 0.5 mg IV Q4H PRN PRN Reason: Pain scale 5-7 (Moderate) Last Admin: 08/27/22 20:13 Dose: 0.5 mg Meropenem 1,000 mg/ Sodium (Chloride) 100 mls @ 200 mls/hr IV Q8HR [facility] Last Admin: 08/28/22 01:08 Dose: 100 mls Daptomycin 500 mg/ Sodium (Chloride) 100 mls @ 100 mls/hr IVPB Q24H [facility] Last Admin: 08/27/22 13:54 Dose: 100 mls Insulin Human Regular (Insulin -Regular Human 50 Unit/0.5 Ml Ml) 0 unit SQ ACHS [facility]; Protocol Last Admin: 08/28/22 07:30 Dose: Not Given L-Arginine/L-Glutamine/HMB (Anup Packet) 1 pkt PO BID [facility] Last Admin: 08/27/22 20:14 Dose: 1 pkt Labetalol HCl (Labetalol 20 Mg/4ml Syringe) 10 mg IV Q6H PRN PRN Reason: sbp Last Admin: 08/21/22 06:02 Dose: 10 mg Lisinopril (Lisinopril 20 Mg Tab) 20 mg PO BID [facility] Last Admin: 08/27/22 20:12 Dose: 20 mg Nifedipine (Nifedipine Xl 60 Mg Tablet) 60 mg PO BID [facility] Last Admin: 08/27/22 20:12 Dose: 60 mg Ondansetron HCl (Ondansetron 4 Mg/2 Ml Vial) 4 mg IV Q6HP PRN PRN Reason: NAUSEA / VOMITING Sodium Chloride (Flush Normal Saline 10 Ml) 10 ml IV BID [facility] Last Admin: 08/27/22 20:13 Dose: 10 ml Spironolactone (Spironolactone 25 Mg Tablet) 25 mg PO BID [facility] Last Admin: 08/27/22 20:11 Dose: 25 mg Venlafaxine HCl (Venlafaxine Hcl Xr 75 Mg Cap) 150 mg PO DAILY [facility] Last Admin: 08/27/22 09:00 Dose: Not Given Microbiology Data (last 24 hrs): Microbiology 08/13/22 15:40 Blood - Blood Aerobic Blood Culture - Final No growth in 5 days. 08/13/22 15:40 Blood - Blood Anaerobic Blood Culture - Final No growth in 5 days. 08/13/22 14:55 Blood - Blood Aerobic Blood Culture - Final No growth in 5 days. 08/13/22 14:55 Blood - Blood Anaerobic Blood Culture - Final No growth in 5 days. Medications List Reviewed: Yes Assessment And Plan - Current Problems (Diagnosis) (1) Diabetic foot ulcer with osteomyelitis Current Visit: Yes Status: Acute Plan: Cultures: 08/13 BC: Negative 08/15 Wound left heel: Pseudomonas aeruginosa (Multi-drug Resistant) Imaging: - 08/13 Foot Xray: FINDINGS/IMPRESSION: No acute fracture. No malalignment. Mild plantar and dorsal aspect calcaneal spurring. The appearance of the calcaneus is similar to 07/23/2022. No definite evidence of osteomyelitis. MRI could confirm if clinically indicated. - 08/18 Dr. Ledesma performed excisional debridement of left heel infected necrotic diabetic ulcer - 08/27 Dr. Ledesma performed excisional debridement of left heel infected necrotic diabetic ulcer: There was a tunnel found between 2 ulcers. Possible another I&D on 08/28 Antibiotics: Had IV Vancymycin 08/13 to 08/25 Current on IV Meropenem (08/13 to) and Daptomycin (08/25 to) Recommendation: 1. Continue current IV antibiotics Meropenem for total of 6 weeks duration 2. Added IV Daptomycin to complete the total of 6 weeks duration 3. Elevated the affected leg to reduce edema and offload pressure 4. Hyperbaric oxygen therapy to promote wound healing and recovery 5. Consider LTAC placement for aggressive IV antibiotic management, diabetic sugar control, wound debridement and care with wound vac placement when improving 6. Apply Medihoney to the wound, cover with surgical dressing and secure with Kerlix daily and change when soiled Patient agrees to initiate the process for LTAC placement ID will closely monitoring the patient for signs of infection with fever and WBC trends - Plan - Diabetic foot ulcer with osteomyelitis - Acute pain - Acute encephalopathy. Unclear etiology. CT head unremarkable for any acute intracranial abnormality - Acute on chronic COPD exacerbation - Anemia of chronic disease: We will continue to monitor hemoglobin and transfuse if less than 7.0 - DM2 - Hypokalemia - ESPERANZA: Nephrology consulted - Hypertension LTAC had been declined by [facility], and will re-appeal for LTAC placement Case has been discussed with Dr. Ann N Physician Review: Patient Assessed, Agree with Above Assessment and Plan
[2022-08-28] MEDS: DAPTOmycin 500 MG in NA CHLORIDE 0.9% 100 ML IVPB SCH (13:44)
[2022-08-28] MEDS: HYDROMORPHONE HCL 0.5 MG/0.5 ML INJ IV PRN ×2 (14:00→20:03)
[2022-08-29] MEDS: Meropenem 1,000 MG in NA CHLORIDE 0.9% 100 ML IV SCH ×3 (00:47→16:28)
[2022-08-29] MEDS: HYDROMORPHONE HCL 0.5 MG/0.5 ML INJ IV PRN ×3 (03:15→14:38)
[2022-08-29 03:51] LABS: Potassium 3.1 mmol/L (3.5-5.1)
[2022-08-29] MEDS: INSULIN -REGULAR HUMAN 50 UNIT/0.5 ML ML SQ SCH ×3 (07:30→16:12)
[2022-08-29] MEDS: SPIRONOLACTONE 25 MG TABLET PO SCH (08:10)
[2022-08-29] MEDS: VENLAFAXINE HCL XR 75 MG CAP PO SCH (08:10)
[2022-08-29] MEDS: lisinopriL 20 MG TAB PO SCH (08:11)
[2022-08-29] MEDS: NIFEDIPINE XL 60 MG TABLET PO SCH (08:11)
[2022-08-29] MEDS: ASPIRIN 325 MG TAB PO SCH (08:11)
[2022-08-29] MEDS: carvediloL 6.25 MG TAB PO SCH (08:11)
[2022-08-29] MEDS: HEPARIN 5000 UNIT/ML 1 ML VIAL SQ SCH (08:12)
[2022-08-29] MEDS: FUROSEMIDE 40 MG TABLET PO SCH (08:12)
[2022-08-29] MEDS: MUPIROCIN TOP SCH ×2 (08:13→13:49)
[2022-08-29] MEDS: HOME MED 1 EA UNK (Fish Oil/Dha/Epa [Fish Oil 1,200 Mg Fish Oil] Capsule) PO SCH (08:13)
[2022-08-29] MEDS: METHYLCELLULOSE PO SCH (08:13)
[2022-08-29] MEDS: COLLAGENASE TOP SCH (08:13)
[2022-08-29] MEDS: JUVEN PACKET PO SCH (08:13)
[2022-08-29] MEDS: [UNRECOGNIZED DRUG - OTHER] PO SCH (08:13)
[2022-08-29] MEDS: COLLAGENASE 30 GM OINTMENT TOP SCH (08:14)
[2022-08-29] MEDS ORDERED: POTASSIUM CL SA 10 MEQ TAB PO ONE (09:00)
[2022-08-29 09:30] VITALS: O2SAT 97
[2022-08-29] MEDS: DAPTOmycin 500 MG in NA CHLORIDE 0.9% 100 ML IVPB SCH (13:30)
[2022-08-29 16:15] VITALS: BP 140/64; TEMP 98.4
--- NOTE | 2022-08-29 21:08 | PN ---
Subjective: The patient is lying in bed, no acute event. Chart reviewed. Objective: Vital Signs: Reviewed. Lungs: Basal crackles. Heart: S1, S2 regular. Abdomen: Soft, nontender. Bowel sounds present. Extremities: Wound noted status post debridement. Laboratory Data: Reviewed. Assessment/plan: Leukopenia and anemia of chronic disease with left foot osteomyelitis, currently on dapto and Merrem. Wound cultures growing pseudomonas. Continue current treatment. Pending long-te acute care. We will follow the patient as needed. NF/MODL Voice ID: [id number] Report ID: [id number]
== END 2022-08-29 18:29 | disposition home health service (06) | DRG 264 ==
LOC: ER 13:48 → ERHOLD 17:27 → 4TH 20:16 → UNDODISIN 08-20 15:12
PROVIDERS: ADMIT Hospitalist; ATTEND Hospitalist
PROC: 02HV33Z Insertion of Infusion Device into Superior Vena Cava, Percutaneous Approach (ICD-10-PCS; 2022-08-13)
PROC: 0JBR0ZZ Excision of Left Foot Subcutaneous Tissue and Fascia, Open Approach (ICD-10-PCS; principal; 2022-08-18 08:30)
PROC: 0JBR0ZZ Excision of Left Foot Subcutaneous Tissue and Fascia, Open Approach (ICD-10-PCS; 2022-08-27)
DX: E11.52 Type 2 diabetes mellitus with diabetic peripheral angiopathy with gangrene (principal); G92.8 Other toxic encephalopathy; J96.01 Acute respiratory failure with hypoxia; I50.33 Acute on chronic diastolic (congestive) heart failure; J44.1 Chronic obstructive pulmonary disease with (acute) exacerbation; E44.0 Moderate protein-calorie malnutrition; Z68.41 Body mass index [BMI] 40.0-44.9, adult; M86.172 Other acute osteomyelitis, left ankle and foot; G93.1 Anoxic brain damage, not elsewhere classified; E66.2 Morbid (severe) obesity with alveolar hypoventilation; N17.9 Acute kidney failure, unspecified; R65.10 Systemic inflammatory response syndrome (SIRS) of non-infectious origin without acute organ dysfunction; Z16.30 Resistance to unspecified antimicrobial drugs; L03.116 Cellulitis of left lower limb; E11.69 Type 2 diabetes mellitus with other specified complication; E11.40 Type 2 diabetes mellitus with diabetic neuropathy, unspecified; E11.621 Type 2 diabetes mellitus with foot ulcer; L97.529 Non-pressure chronic ulcer of other part of left foot with unspecified severity; E87.6 Hypokalemia; I11.0 Hypertensive heart disease with heart failure; E83.39 Other disorders of phosphorus metabolism; F41.9 Anxiety disorder, unspecified; D50.9 Iron deficiency anemia, unspecified; D72.819 Decreased white blood cell count, unspecified; F17.200 Nicotine dependence, unspecified, uncomplicated; B96.5 Pseudomonas (aeruginosa) (mallei) (pseudomallei) as the cause of diseases classified elsewhere; R80.9 Proteinuria, unspecified; R31.29 Other microscopic hematuria; R77.0 Abnormality of albumin; Z88.1 Allergy status to other antibiotic agents; Z90.49 Acquired absence of other specified parts of digestive tract; Z79.82 Long term (current) use of aspirin; Z79.84 Long term (current) use of oral hypoglycemic drugs; Z79.899 Other long term (current) drug therapy; Z90.710 Acquired absence of both cervix and uterus; Z20.822 Contact with and (suspected) exposure to COVID-19
CPT/HCPCS: 0240U; 11042; 11045; 36415; 70450; 71045; 80048; 80053; 80202; 81003; 82550; 82607; 82747; 82805; 82947; 83540; 83735; 83880; 84100; 84132; 84145; 84439; 84443; 85025; 85044; 85610; 85730; 86850; 86900; 86901; 87040; 87070; 87077; 87186; 87205; 88304; 93005; 93925; 94010; 94640; 97110; 97116; 97161; 97530; 99285; J0461; J0878; J1170; J1644; J1815; J1940; J2001; J2185; J2250; J2405; J2704; J2916; J2920; J2997; J3010; J3370; J3475; J3480; J3590; J7030; J7040; J7050; J7512; J7613; J7644

== ENCOUNTER 2022-09-04 10:46 | Observation (INO) | payer OTHER ==
--- OUTSIDE RECORDS SUMMARY | 2022-09-04 11:21 | XMS REPORT | Continuity of Care Document ---
:1960 Author Organization [facility] t Address [address] [place] [address] Care Team Providers Name Role Phone Jefferson Witt MD Primary Care Physician BISI CARDOSO Attending Clinician Unavailable GIOVANY ANTOINE Attending Clinician Unavailable JEFFERSON WITT Attending Clinician Unavailable Jefferson Witt MD Attending Clinician Marylou Borrego Attending Clinician RACHELL CHENG Attending Clinician Unavailable RACHELL CHENG Attending Clinician Unavailable Doctor Unassigned, [place] Attending Clinician Unavailable Oleg Weems RN Attending Clinician Unavailable Claudia Recinos Attending Clinician JESUS SPAIN Attending Clinician Unavailable Jesus Spain MD Attending Clinician Rachell Cheng MD Attending Clinician ROSETTE CONTRERAS Attending Clinician Unavailable Rosette Markham Attending Clinician [facility], [facility] Attending Clinician Unavailable 2, [facility] Attending Clinician Unavailable CLAUDIA PORTER Attending Clinician Unavailable DAYLIN MOJICA Attending Clinician Unavailable Daylin Mojica NP Attending Clinician [facility], [facility] Attending Clinician UnavailGiovany Moseley MD Attending Clinician ARMINDA VEGA Attending Clinician Unavailable Noemi Christian Attending Clinician Cristhian OCONNOR, Andrea Garvin Attending Clinician NOEMI WAITE Attending Clinician Unavailable DILAN LOVE Attending Clinician Unavailable Dilan Love MD Attending Clinician Lab, Ang - Db Attending Clinician Unavailable MARYLOU GAMINO Attending Clinician Unavailable PRAVEEN SAGE Attending Clinician Unavailable Praveen Shipman Attending Clinician Audrey OCONNOR, Brian Bunch.H. Attending Clinician BRIAN VENTURA.HCam Attending Clinician Unavailable Only, [facility] Test Attending Clinician Unavailable Mike OCONNOR, Maryam Attending Clinician MARYAM MCKEON Attending Clinician Unavailable ROBBIE CORONADO Attending Clinician Unavailable Nurse, [facility] Pob Immunization Attending Clinician Unavailable Severo Lara DO Attending Clinician SEVERO LARA Attending Clinician Unavailable Linda CHONG, Elizabeth Ballesteros Attending Clinician Unavailable CHERYLE PERERA Attending Clinician Unavailable Cheryle Perera MD Attending Clinician Ana Riddle MD Attending Clinician Doron Mayen Attending Clinician DORON REED Attending Clinician Unavailable Gordon GARCIAP Josse Attending Clinician JOSSE LEYVA Attending Clinician [...] Clinician Visit, [facility] Nurse Attending Clinician Unavailable Sandy Marin Attending Clinician SANDY GRISSOM Attending Clinician Unavailable Lab, [facility] Fam Pob I Attending Clinician Unavailable Tani CHONG, Alana Prabhakar Attending Clinician Unavailable [facility]ending [facility]ician Pob1, Acute Care Clinic [...] Date Expiration Date S leon [employer] MEDICARE [id number] 2019 00:00:00 MEDICARE PART A [id number] 2021 2021 \\T\\ B 00:00:00 00:00:00 [id number] 2021 2021 ND 00:00:00 00:00:00 Problems Condition Condition Condition Status Onset Resolution Last Treating Co mments Source Name Details Category Date Date Treatment Clinician Date VERNON VERNON Disease Active 2021-08 Univers (obstructi (obstructi 1-23 it y of ve sleep ve sleep 00:00: [place] apnea) apnea) 00 Medical Branch Chest pain Chest pain Disease Active 2020-08 U nivers 0-29 ity of 00:00: [place] 00 Medical Branch Morbid Morbid Disease Active 2020-08 Univers obesity obesity 0-29 ity of 00:00: [place] 00 Medical Branch Chronic Chronic Disease Active [...] ity of level of level of 00:00: [place] lipase lipase 00 Medical Branch Leg edema Leg edema Disease Active 2020-08 Uni vers 0-29 ity of 00:00: [place] [facility] Calculus Calculus Disease Active 2019-08 Overview: Un justice of of 2-18 Formattin ity of gallbladde gallbladde 00:00: g of this [place] r without r without 00 note Medi ashley cholecysti cholecysti might be Branch tis tis different without without from the obstructio obstructio original. n n Added automatic ally from request for surgery [id number] Neuropathy Neuropathy Disease Active U nivers 9-22 ity of 00:00: [place] [facility] Bronchitis Bronchitis Disease Active U nivers 4-22 ity of 00:00: [place] [facility] SOB SOB Disease Active Univers (shortness (shortness 4-22 it y of of breath) [place] breath[place] Fever in Fever in Disease Active Unive rs adult adult 4-22 ity of 00:00: [place] [facility] Tobacco Tobacco Disease Active Univers dependence dependence 4-22 it y of 00:00: [place] [facility] Obesity Obesity Disease Active Univers 9-21 ity of 00:00: [place] [facility] Low back Low back Disease Active Unive rs pain pain 9-21 ity of 00:00: [place] [facility] Anxiety Anxiety Disease Active Univers 6-24 ity of 00:00: [place] [facility] Type 2 Type 2 Disease Active Univers diabetes diabetes 6-13 ity of mellitus mellitus 00:00: [place] [facility] Hyperlipid Hyperlipid Disease Active U nivers emia with emia with 6-13 ity of target LDL target LDL 00:00: [place] less than less than 00 Medi [place] 100 100 Branch Essential Essential Disease Active Uni vers hypertensi hypertensi 6-13 it y of on on 00:00: [place] [facility] Right knee Right knee Disease Active U nivers pain pain 5-31 ity of 00:00: [place] [facility] Right knee Right knee Disease [...] of adverse 00:00: [place] reaction Medical s [place] Social History Social Habit Start Date Stop Date Quantity Comments Source History of tobacco Cigarette Smoker University of use [facility] Exposure to 2022-07-28 2022-08-07 Not sure [facility] SARS-CoV-2 (event) 00:00:00 11:36:00 [facility] Alcohol intake 2022-07-16 2022-07-16 0 /d University of 00:00:00 00:00:00 [facility] Cigarettes smoked 2022-06-04 2022-06-04 Univers ity of current (pack per 00:00:00 00:00:00 ) - Reported Branch Cigarette 2022-06-04 2022-06-04 University of pack-years 00:00:00 00:00:00 [facility] Tobacco use and 2022-06-04 2022-06-04 User of Universit y of exposure 00:00:00 00:00:00 smokeless [facility] tobacco [place] Sex [birth year] At [birth year] Universit y of 00:00:00 00:00:00 [facility] Smoking Status Start Date Stop Date Source Smokes tobacco daily 2022-06-04 00:00:00 Univers ity of [facility] Medications Ordered Filled Start Stop Current Ordering Indication Dosage Frequency Signature Comments Components Source Medication Medication Date Date Medication? Clinician (SIG) Name Name fluconazole Yes 150mg Take 1 Uni vers (DIFLUCAN) 1-31 tablet by ity of 150 mg 00:00: mouth [place] tablet 00 every 5 Medical (five) Branch days. fluconazole Yes 150mg Take 1 Uni vers (DIFLUCAN) 1-31 tablet by ity of 150 mg 00:00: mouth [place] tablet 00 every 5 Medical (five) Branch days. lancets 33 Yes Use as Unive rs gauge Misc 09-02 directed ity o f 00:00: twice a [place] for Medical E11.9 Branch blood sugar Yes [id number] Use as Univers diagnostic 09-02 directed ity o f (TRUE 00:00: to check [place] METRIX 00 blood Medical GLUCOSE sugar QID Branch TEST STRIP) DX: E11.9 strip clonazePAM Yes [id number] 1mg Take 1 U nivers 1 mg tablet 1-18 tablet by ity of 00:00: mouth in [place] the Medical morning Branch and 1 tablet at noon and 1 tablet in the evening. clonazePAM 0 Yes [id number] 1mg Take 1 U nivers 1 mg tablet 1-18 tablet by ity of 00:00: mouth in [place] the Medical morning Branch and 1 tablet at noon and 1 tablet in the evening. clonazePAM 0 Yes [id number] 1mg Take 1 U nivers 1 mg tablet 1-18 tablet by ity of 00:00: mouth in [place] 00 the Medical morning Branch and 1 tablet at noon and 1 tablet in the evening. clonazePAM 2023-0 Yes [id number] 1mg Take 1 U nivers 1 mg tablet 1-18 tablet by ity of 00:00: mouth in [place] 00 the Medical morning Branch and 1 tablet at noon and 1 tablet in the evening. TIZANIDINE 2023-0 Yes [id number] TAKE 1 Univers 4 mg tablet 1-17 TABLET BY ity of 00:00: MOUTH [place] 00 EVERY 8 Medical HOURS Branch NEEDED TIZANIDINE 2023-0 Yes [id number] TAKE 1 Univers 4 mg tablet 1-17 TABLET BY ity of 00:00: MOUTH [place] 00 EVERY 8 Medical HOURS Branch NEEDED TIZANIDINE 2023-0 Yes [id number] TAKE 1 Univers 4 mg tablet 1-17 TABLET BY ity of 00:00: MOUTH [place] 00 EVERY 8 Medical HOURS Branch NEEDED TIZANIDINE 2023-0 Yes [id number] TAKE 1 Univers 4 mg tablet 1-17 TABLET BY ity of 00:00: MOUTH [place] 00 EVERY 8 Medical HOURS Branch NEEDED TIZANIDINE 2023-0 Yes [id number] TAKE 1 Univers 4 mg tablet 1-17 TABLET BY ity of 00:00: MOUTH [place] 00 EVERY 8 Medical HOURS Branch NEEDED nystatin 2023-0 2023- Yes [id number] [facility] and Univers 100,000 1-06 01-17 U spit out ity of unit/mL 00:00: 05:59 10 mL 4 [place] suspension 00 :00 (four) Medical times Branch daily for 10 days. nystatin 2023-0 2023- Yes [id number] Sw[facility] and Univers 100,000 1-06 01-17 U spit out ity of unit/mL 00:00: 05:59 10 mL 4 [place] suspension 00 :00 (four) Medical times Branch daily for 10 days. nystatin 2023-0 2023- Yes [id number] [facility] and Univers 100,000 1-06 01-17 U spit out ity of unit/mL 00:00: 05:59 10 mL 4 [place] suspension 00 :00 (four) Medical times Branch daily for 10 days. nystatin 2023-0 2023- Yes [id number] [facility] and Univers 100,000 -17 U spit out ity of unit/mL 00:00: 05:59 10 mL 4 [place] suspension 00 :00 (four) Medical times Branch daily for 10 days. nystatin 2022- Yes [id number] [facility] and Univers 100,000 08-0817 U spit out ity of unit/mL 00:00: 05:59 10 mL 4 [place] suspension 00 :00 (four) Medical times Branch daily for 10 days. traMADoL 50 2022- No 1-2 tablet Univers mg tablet 08-07 as needed ity of 12:07: 00:00 [place] 49 :00 Medical Branch traMADoL 50 2022- No 1-2 tablet Univers mg tablet 08-0705 as needed ity of 12:07: 00:00 [place] 49 :00 Medical Branch escitalopra Yes 1 tablet Un [...] 5 gram 2-28 ity of injection 00:00: [facility] Branch HYDROcodone 2021-08 Yes [id number] 1{tbl} Take 1 Un justice -acetaminop 2-28 tablet by ity of hen 7.5-325 00:00: mouth [place] mg per 00 every 6 Medical tablet (six) Branch hours as needed for Pain. Indication s: chronic pain vancomycin 2021-08 Yes Univers 5 gram 2-28 ity of injection 00:00: [facility] Branch HYDROcodone 2021-08 Yes [id number] 1{tbl} Take 1 Un justice -acetaminop 2-28 tablet by ity of hen 7.5-325 00:00: mouth [place] mg per 00 every 6 Medical tablet (six) Branch hours as needed for Pain. Indication s: chronic pain vancomycin 2021-08 Yes Univers 5 gram 2-28 ity of injection 00:00: [facility] HYDROcodone 2021-08 Yes [id number] 1{tbl} Take 1 Un justice -acetaminop 2-28 tablet by ity of hen 7.5-325 00:00: mouth [place] mg per 00 every 6 Medical tablet (six) Branch hours as needed for Pain. Indication s: chronic pain vancomycin 2021-08 Yes Univers 5 gram 2-28 ity of injection 00:00: [facility] HYDROcodone 2021-08 Yes [id number] 1{tbl} Take 1 Un justice -acetaminop 2-28 tablet by ity of hen 7.5-325 00:00: mouth [place] mg per 00 every 6 Medical tablet (six) Branch hours as needed for Pain. Indication s: chronic pain vancomycin 2021-08 Yes Univers 5 gram 2-28 ity of injection 00:00: [facility] Branch HYDROcodone 2021-08 Yes [id number] 1{tbl} Take 1 Un justice -acetaminop 2-28 tablet by ity of hen 7.5-325 00:00: mouth [place] mg per 00 every 6 Medical tablet (six) Branch hours as needed for Pain. Indication s: chronic pain vancomycin 2021-08 Yes Univers 5 gram 2-28 ity of injection 00:00: [facility] Branch HYDROcodone 2021-08 Yes [id number] 1{tbl} Take [...] injection 00:00: Medical Branch gabapentin 2021-08 Yes [id number] TAKE 1 Univers 300 mg 2-20 CAPSULE BY ity of capsule 00:00: MOUTH [place] 00 TIMES Medical DAILY Branch gabapentin 2021-08 Yes [id number] TAKE 1 Univers 300 mg 2-20 CAPSULE BY ity of capsule 00:00: MOUTH [place] 00 TIMES Medical DAILY Branch gabapentin 2021-08 Yes [id number] TAKE 1 Univers 300 mg 2-20 CAPSULE BY ity of capsule 00:00: MOUTH [place] 00 TIMES Medical DAILY Branch gabapentin 2021- Yes [id number] TAKE 1 Univers 300 mg 2-20 CAPSULE BY ity of capsule 00:00: MOUTH [place] TIMES Medical DAILY Branch gabapentin 2021- Yes [id number] TAKE 1 Univers 300 mg 2-20 CAPSULE BY ity of capsule 00:00: MOUTH FOUR [place] TIMES Medical DAILY Branch gabapentin 2021- Yes [id number] TAKE 1 Univers 300 mg 2-20 CAPSULE BY ity of capsule 00:00: MOUTH [place] TIMES Medical DAILY Branch gabapentin 2021- Yes [id number] TAKE 1 Univers 300 mg 2-20 CAPSULE BY ity of capsule 00:00: MOUTH [place] TIMES Medical DAILY Branch gabapentin 2021- Yes [id number] TAKE 1 Univers 300 mg 2-20 CAPSULE BY ity of capsule 00:00: MOUTH [place] TIMES Medical DAILY Branch gabapentin 2021- Yes [id number] TAKE 1 Univers 300 mg 2-20 CAPSULE BY ity of capsule 00:00: MOUTH [place] TIMES Medical DAILY Branch gabapentin 2021- Yes [id number] TAKE 1 Univers 300 mg 2-20 CAPSULE BY ity of capsule 00:00: MOUTH [place] TIMES Medical DAILY Branch gabapentin 2021- Yes [id number] TAKE 1 Univers 300 mg 2-20 CAPSULE BY ity of capsule 00:00: MOUTH [place] TIMES Medical DAILY Branch gabapentin 2021- Yes [id number] TAKE 1 Univers 300 mg 2-20 CAPSULE BY ity of capsule 00:00: MOUTH [place] TIMES Medical DAILY Branch gabapentin 2021- Yes [id number] TAKE 1 Univers 300 mg 2-20 CAPSULE BY ity of capsule 00:00: MOUTH [place] TIMES Medical DAILY Branch gabapentin 2021- Yes [id number] TAKE 1 Univers 300 mg 2-20 CAPSULE BY ity of capsule 00:00: MOUTH [place] TIMES Medical DAILY Branch gabapentin 2021- Yes [id number] TAKE 1 Univers 300 mg 2-20 CAPSULE BY ity of capsule 00:00: MOUTH [place] TIMES Medical DAILY Branch gabapentin 2021- Yes [id number] TAKE 1 Univers 300 mg 2-20 CAPSULE BY ity of capsule 00:00: MOUTH [place] 00 TIMES Medical DAILY Branch NIFEdipine 2021-08 Yes [id number] 60mg Take 1 U nivers ER 60 mg 2-19 tablet by ity of tablet 00:00: mouth in [place] 00 the Medical morning Branch and 1 tablet in the evening. NIFEdipine 2021-08 Yes [id number] 60mg Take 1 U nivers ER 60 mg 2-19 tablet by ity of tablet 00:00: mouth in [place] 00 the Medical morning Branch and 1 tablet in the evening. NIFEdipine 2021-08 Yes [id number] 60mg Take 1 U nivers ER 60 mg 2-19 tablet by ity of tablet 00:00: mouth in [place] 00 the Medical morning Branch and 1 tablet in the evening. NIFEdipine 2021-08 Yes [id number] 60mg Take 1 U nivers ER 60 mg 2-19 tablet by ity of tablet 00:00: mouth in [place] [address] the Medical morning Branch and 1 tablet in the evening. NIFEdipine 2021-08 Yes [id number] 60mg Take 1 U nivers ER 60 mg 2-19 tablet by ity of tablet 00:00: mouth in [place] [address] the Medical morning Branch and 1 tablet in the evening. NIFEdipine 2021-08 Yes [id number] 60mg Take 1 U nivers ER 60 mg 2-19 tablet by ity of tablet 00:00: mouth in [place] the Medical morning Branch and 1 tablet in the evening. latanoprost 2021-08 Yes INSTILL 1 U nivers 0.005 % 2-19 DROP INTO ity of ophthalmic 00:00: BOTH EYES [place] drops 00 ONCE DAILY Medical Branch NIFEdipine 2021-08 Yes [id number] 60mg Take 1 U nivers ER 60 mg 2-19 tablet by ity of tablet 00:00: mouth in [place] [address] the Medical morning Branch and 1 tablet in the evening. latanoprost 2021-08 Yes INSTILL 1 U nivers 0.005 % 2-19 DROP INTO ity of ophthalmic 00:00: BOTH EYES [place] drops 00 ONCE DAILY Medical Branch NIFEdipine 2021-08 Yes [id number] 60mg Take 1 U nivers ER 60 mg 2-19 tablet by ity of tablet 00:00: mouth in [place] [address] the Medical morning Branch and 1 tablet in the evening. latanoprost 2021-08 Yes INSTILL 1 U nivers 0.005 % 2-19 DROP INTO ity of ophthalmic 00:00: BOTH EYES [place] drops 00 ONCE DAILY Medical Branch NIFEdipine 2021-08 Yes [id number] 60mg Take 1 U nivers ER 60 mg 2-19 tablet by ity of tablet 00:00: mouth in [place] [address] the Medical morning Branch and 1 tablet in the evening. latanoprost 2021-08 Yes INSTILL 1 U nivers 0.005 % 2-19 DROP INTO ity of ophthalmic 00:00: BOTH [place]YES [place] drops 00 ONCE DAILY Medical Branch NIFEdipine 2021-08 Yes [id number] 60mg Take 1 U nivers ER 60 mg 2-19 tablet by ity of tablet 00:00: mouth in [place] [address] the Medical morning Branch and 1 tablet in the evening. latanoprost 2021-08 Yes INSTILL 1 U nivers 0.005 % 2-19 DROP INTO ity of ophthalmic 00:00: BOTH EYES [place] drops 00 ONCE DAILY Medical Branch NIFEdipine 2021-08 Yes [id number] 60mg Take 1 U nivers ER 60 mg 2-19 tablet by ity of tablet 00:00: mouth in [place] [address] the Medical morning [place] and 1 tablet in the evening. latanoprost 2021-08 Yes INSTILL 1 U nivers 0.005 % 2-19 DROP INTO ity of ophthalmic 00:00: BOTH EYES [place] drops 00 ONCE DAILY Medical Branch NIFEdipine 2021-08 Yes [id number] 60mg Take 1 U nivers ER 60 mg 2-19 tablet by ity of tablet 00:00: mouth in [place] [address] the Medical morning [place] and 1 tablet in the evening. latanoprost 2021-08 Yes INSTILL 1 U nivers 0.005 % 2-19 DROP INTO ity of ophthalmic 00:00: BOTH EYES [place] drops 00 ONCE DAILY Medical Branch NIFEdipine 2021-08 Yes [id number] 60mg Take 1 U nivers ER 60 mg 2-19 tablet by ity of tablet 00:00: mouth in [place] [address] the [facility] morning [place] and 1 tablet in the evening. latanoprost 2021-08 Yes INSTILL 1 U nivers 0.005 % 2-19 DROP INTO ity of ophthalmic 00:00: BOTH EYES [place] drops 00 ONCE DAILY Medical Branch NIFEdipine 2021-08 Yes [id number] 60mg Take 1 U nivers ER 60 mg 2-19 tablet by ity of tablet 00:00: mouth in [place] [address] the Medical morning [place] and 1 tablet in the evening. latanoprost 2021-08 Yes INSTILL 1 U nivers 0.005 % 2-19 DROP INTO ity of ophthalmic 00:00: BOTH EYES [place] drops 00 ONCE DAILY [facility] NIFEdipine 2021-08 Yes [id number] 60mg Take 1 U nivers ER 60 mg 2-19 tablet by ity of tablet 00:00: mouth in [place] [address] the Medical morning [place] and 1 tablet in the evening. latanoprost 2021-08 Yes INSTILL 1 U nivers 0.005 % 2-19 DROP INTO ity of ophthalmic 00:00: BOTH EYES [place] drops 00 ONCE DAILY [facility] NIFEdipine 2021-08 Yes [id number] 60mg Take 1 U nivers ER 60 mg 2-19 tablet by ity of tablet 00:00: mouth in [place] [address] the [facility] morning [place] and 1 tablet in the evening. latanoprost 2021-08 Yes INSTILL 1 U nivers 0.005 % 2-19 DROP INTO ity of ophthalmic 00:00: BOTH EYES [place] drops 00 ONCE DAILY [facility] NIFEdipine 2021-08 Yes [id number] 60mg Take 1 U nivers ER 60 mg 2-19 tablet by ity of tablet 00:00: mouth in [place] [address] the [facility] morning [place] and 1 tablet in the evening. latanoprost 2021-08 Yes INSTILL 1 U nivers 0.005 % 2-19 DROP INTO ity of ophthalmic 00:00: BOTH [place]YES [place] drops 00 ONCE DAILY [facility] NIFEdipine 2021-08 Yes [id number] 60mg Take 1 U nivers ER 60 mg 2-19 tablet by ity of tablet 00:00: mouth in [place] [address] the [facility] morning [place] and 1 tablet in the evening. latanoprost 2021-08 Yes INSTILL 1 U nivers 0.005 % 2-19 DROP INTO ity of ophthalmic 00:00: BOTH EYES [place] drops 00 ONCE DAILY [facility] Branch ondansetron 2021-08 4mg 4 mg, Slow Univers (ZOFRAN 2-17 07-19 IV Push, ity of (PF)) 20:45: 20:00 ONCE, 1 [place] injection 4 00 :00 dose, On Medi ashley mg [facility] 07/19/22 at 1445, GEOVANI morpHINE (4 2021-08- No 4mg 4 mg, Slow Univers mg/mL) 09-19 IV Push, ity of injection 4 19:45: 20:00 ONCE, 1 [place] mg 00 :00 dose, On Medical Sat Branch 07/19/22 at 1345, STAT cephALEXin 2021-08 Yes [id number] 500mg Take 1 Univers (KEFLEX) 2-17 capsule by ity o f 500 mg 00:00: mouth 4 [place] capsule 00 (four) Medical times Branch daily. ciprofloxac 2021-08 Yes [id number] 500mg Take 1 Univers in HCl 500 2-17 tablet by ity of mg tablet 00:00: mouth [place] the Medical morning Branch and 1 tablet in the evening. cephALEXin 2021-08 Yes [id number] 500mg Take 1 Univers (KEFLEX) 2-17 capsule by ity o f 500 mg 00:00: mouth 4 [place] capsule 00 ([facility]) Medical times Branch daily. ciprofloxac 2021-08 Yes [id number] 500mg Take 1 Univers in HCl 500 2-17 tablet by ity of mg tablet 00:00: mouth [place] 00 the Medical morning Branch and 1 tablet in the evening. cephALEXin 2021-08 Yes [id number] 500mg Take 1 Univers (KEFLEX) 2-17 capsule by ity o f 500 mg 00:00: mouth 4 [place] capsule 00 (four) Medical times Branch daily. ciprofloxac 2021-08 Yes [id number] 500mg Take 1 Univers in HCl 500 2-17 tablet by ity of mg tablet 00:00: mouth [place] 00 the Medical morning Branch and 1 tablet in the evening. cephALEXin 2021-08 Yes [id number] 500mg Take 1 Univers (KEFLEX) 2-17 capsule by ity o f 500 mg 00:00: mouth 4 [place] capsule 00 (four) Medical times Branch daily. ciprofloxac 2021-08 Yes [id number] 500mg Take 1 Univers in HCl 500 2-17 tablet by ity of mg tablet 00:00: mouth [place] 00 the Medical morning Branch and 1 tablet in the evening. cephALEXin 2021-08 Yes [id number] 500mg Take 1 Univers (KEFLEX) 2-17 capsule by ity o f 500 mg 00:00: mouth 4 [place] capsule 00 ([facility]) Medical times Branch daily. ciprofloxac 2021-08 Yes [id number] 500mg Take 1 Univers in HCl 500 2-17 tablet by ity of mg tablet 00:00: mouth [place] the Medical morning Branch and 1 tablet in the evening. cephALEXin 2021-08 Yes [id number] 500mg Take 1 Univers (KEFLEX) 2-17 capsule by ity o f 500 mg 00:00: mouth 4 [place] capsule 00 ([facility]) Medical times Branch daily. ciprofloxac 2021-08 Yes [id number] 500mg Take 1 Univers in HCl 500 2-17 tablet by ity of mg tablet 00:00: mouth [place] 00 the Medical morning Branch and 1 tablet in the evening. cephALEXin 2021-08 Yes [id number] 500mg Take 1 Univers (KEFLEX) 2-17 capsule by ity o f 500 mg 00:00: mouth 4 [place] capsule 00 ([facility]) Medical times Branch daily. ciprofloxac 2021-08 Yes [id number] 500mg Take 1 Univers in HCl 500 2-17 tablet by ity of mg tablet 00:00: mouth [place] 00 the Medical morning Branch and 1 tablet in the evening. cephALEXin 2021-08 Yes [id number] 500mg Take 1 Univers (KEFLEX) 2-17 capsule by ity o f 500 mg 00:00: mouth 4 [place] capsule 00 ([facility]) Medical times Branch daily. ciprofloxac 2021-08 Yes [id number] 500mg Take 1 Univers in HCl 500 2-17 tablet by ity of mg tablet 00:00: mouth [place] 00 the Medical morning Branch and 1 tablet in the evening. cephALEXin 2021-08 Yes [id number] 500mg Take 1 Univers (KEFLEX) 2-17 capsule by ity o f 500 mg 00:00: mouth 4 [place] capsule 00 ([facility]) Medical times Branch daily. ciprofloxac 2021-08 Yes [id number] 500mg Take 1 Univers in HCl 500 2-17 tablet by ity of mg tablet 00:00: mouth [place] 00 the Medical morning Branch and 1 tablet in the evening. cephALEXin 2021-08 Yes [id number] 500mg Take 1 Univers (KEFLEX) 2-17 capsule by ity o f 500 mg 00:00: mouth 4 [place] capsule 00 (four) Medical times Branch daily. ciprofloxac 2021-08 Yes [id number] 500mg Take 1 Univers in HCl 500 2-17 tablet by ity of mg tablet 00:00: mouth [place] 00 the Medical morning Branch and 1 tablet in the evening. cephALEXin 2021-08 Yes [id number] 500mg Take 1 Univers (KEFLEX) 2-17 capsule by ity o f 500 mg 00:00: mouth 4 [place] capsule 00 (four) Medical times Branch daily. ciprofloxac 2021-08 Yes [id number] 500mg Take 1 Univers in HCl 500 2-17 tablet by ity of mg tablet 00:00: mouth [place] 00 the Medical morning Branch and 1 tablet in the evening. cephALEXin 2021-08 Yes [id number] 500mg Take 1 Univers (KEFLEX) 2-17 capsule by ity o f 500 mg 00:00: mouth 4 [place] capsule 00 ([facility]) Medical times Branch daily. ciprofloxac 2021-08 Yes [id number] 500mg Take 1 Univers in HCl 500 2-17 tablet by ity of mg tablet 00:00: mouth [place] 00 the Medical morning Branch and 1 tablet in the evening. cephALEXin 2021-08 Yes [id number] 500mg Take 1 Univers (KEFLEX) 2-17 capsule by ity o f 500 mg 00:00: mouth 4 [place] capsule 00 ([facility]) Medical times Branch daily. ciprofloxac 2021-08 Yes [id number] 500mg Take 1 Univers in HCl 500 2-17 tablet by ity of mg tablet 00:00: mouth [place] the Medical morning Branch and 1 tablet in the evening. cephALEXin 2021-08 Yes [id number] 500mg Take 1 Univers (KEFLEX) 2-17 capsule by ity o f 500 mg 00:00: mouth 4 [place] capsule 00 (four) Medical times Branch daily. ciprofloxac 2021-08 Yes [id number] 500mg Take 1 [facility] in HCl 500 2-17 tablet by [facility] mg tablet 00:00: mouth [place] 00 the Medical morning Branch and 1 tablet in the evening. cephALEXin 2022-1 Yes [id number] 500mg Take 1 [facility] (KEFLEX) 2-17 capsule by ity o f 500 mg 00:00: mouth 4 [place] capsule 00 ([facility]) Medical times Branch daily. ciprofloxac 2021-08 Yes [id number] 500mg Take 1 [facility] in HCl 500 2-17 tablet by [facility] mg tablet 00:00: mouth [place] 00 the Medical morning Branch and 1 tablet in the evening. cephALEXin 2021-08 Yes [id number] 500mg Take 1 [facility] (KEFLEX) 2-17 capsule by ity o f 500 mg 00:00: mouth 4 [place] capsule 00 (four) Medical times Branch daily. ciprofloxac 2021-08 Yes [id number] 500mg Take 1 [facility] in HCl 500 2-17 tablet by [facility] of mg tablet 00:00: mouth [place] 00 the Medical morning Branch and 1 tablet in the evening. cephALEXin 2021-08 Yes [id number] 500mg Take 1 [facility] (KEFLEX) 2-17 capsule by ity o f 500 mg 00:00: mouth 4 [place] capsule 00 ([facility]) Medical times Branch daily. ciprofloxac 2021-08 Yes [id number] 500mg Take 1 [facility] in HCl 500 2-17 tablet by [facility] of mg tablet 00:00: mouth [place] 00 the Medical morning Branch and 1 tablet in the evening. cephALEXin 2021-08 Yes [id number] 500mg Take 1 [facility] (KEFLEX) 2-17 capsule by ity o f 500 mg 00:00: mouth 4 [place] capsule 00 ([facility]) Medical times [place] daily. cephALEXin 2021-08 Yes [id number] 500mg Take 1 [facility] (KEFLEX) 2-17 capsule by ity o f 500 mg 00:00: mouth 4 [place] capsule 00 ([facility]) Medical times Branch daily. ciprofloxac 2021-08- No [id number] 500mg Take 1 [facility] in HCl 500 2-17 -31 tablet by ity of mg tablet 00:00: 00:00 mouth in [place] 00 :00 the Medical morning Branch and 1 tablet in the evening. furosemide 2021-08 Yes 80mg Take 1 [facility] rs 80 mg 2-08 tablet by ity of tablet 00:00: mouth [place] 00 every 48 Medical ([facility]) hours. spironolact 2021-08 Yes 25mg Take 1 Univ ers one 25 mg 2-08 tablet by ity o f tablet 00:00: mouth [place] 00 every 48 Medical ([facility]-count[facility] include 234 beds at the [facility] Branch ) hours. furosemide 2021-1 Yes 80mg Take 1 [facility] rs 80 mg 2-08 tablet by ity of tablet 00:00: mouth [place] 00 every 48 Medical ([facility] include 234 beds at the [facility] Branch ht) hours. spironolact 2021- Yes 25mg Take 1 Univ ers one 25 mg 2-08 tablet by ity o f tablet 00:00: mouth [place] 00 every 48 Medical ([facility] include 234 beds at the [facility] Branch ) hours. furosemide 2021-1 Yes 80mg Take 1 [facility] rs 80 mg 2-08 tablet by ity of tablet 00:00: mouth [place] 00 every 48 Medical ([facility] Branch ) hours. spironolact 2021- Yes 25mg Take 1 Univ ers one 25 mg 2-08 tablet by ity o f tablet 00:00: mouth [place] 00 every 48 Medical ([facility] Branch ) hours. furosemide 2021-1 Yes 80mg Take 1 [facility] rs 80 mg 2-08 tablet by ity of tablet 00:00: mouth [place] 00 every 48 Medical ([facility] Branch ) hours. spironolact 2021- Yes 25mg Take 1 [facility] ers one 25 mg 2-08 tablet by ity o f tablet 00:00: mouth [place] 00 every 48 Medical ([facility] Branch ) hours. furosemide 2021-1 Yes 80mg Take 1 [facility] rs 80 mg 2-08 tablet by ity of tablet 00:00: mouth [place] 00 every 48 Medical ([facility] Branch ) hours. spironolact 2021-1 Yes 25mg Take 1 [facility] ers one 25 mg 2-08 tablet by ity o f tablet 00:00: mouth [place] 00 every 48 Medical ([facility] Branch ) hours. furosemide 2-1 Yes 80mg Take 1 [facility] rs 80 mg 2-08 tablet by ity of tablet 00:00: mouth [place] 00 every 48 Medical ([facility] Branch ) hours. spironolact 2021-1 Yes 25mg Take 1 [facility] ers one 25 mg 2-08 tablet by ity o f tablet 00:00: mouth [place] 00 every 48 Medical ([facility]) hours. furosemide 2021- Yes 80mg Take 1 [facility] rs 80 mg 2-08 tablet by ity of tablet 00:00: mouth [place] 00 every 48 Medical ([facility]) hours. spironolact 2021-08 Yes 25mg Take 1 [facility] ers one 25 mg 2-08 tablet by ity o f tablet 00:00: mouth [place] 00 every 48 Medical ([facility]) hours. furosemide 2021- Yes 80mg Take 1 [facility] rs 80 mg 2-08 tablet by ity of tablet 00:00: mouth [place] 00 every 48 Medical ([facility]) hours. spironolact 2021-08 Yes 25mg Take 1 Univ ers one 25 mg 2-08 tablet by ity o f tablet 00:00: mouth [place] 00 every 48 Medical ([facility]) hours. furosemide 2021- Yes 80mg Take 1 [facility] rs 80 mg 2-08 tablet by ity of tablet 00:00: mouth [place] 00 every 48 Medical ([facility]) hours. spironolact 2021-08 Yes 25mg Take 1 Univ ers one 25 mg 2-08 tablet by ity o f tablet 00:00: mouth [place] 00 every 48 Medical ([facility]) hours. furosemide 2021- Yes 80mg Take 1 [facility] rs 80 mg 2-08 tablet by ity of tablet 00:00: mouth [place] 00 every 48 Medical ([facility]) hours. spironolact 2021-08 Yes 25mg Take 1 [facility] ers one 25 mg 2-08 tablet by ity o f tablet 00:00: mouth [place] 00 every 48 Medical ([facility]) hours. furosemide 2021- Yes 80mg Take 1 [facility] rs 80 mg 2-08 tablet by ity of tablet 00:00: mouth [place] 00 every 48 Medical ([facility]) hours. spironolact 2021-08 Yes 25mg Take 1 [facility] ers one 25 mg 2-08 tablet by ity o f tablet 00:00: mouth [place] 00 every 48 Medical ([facility]) hours. furosemide 2021-1 Yes 80mg Take 1 [facility] rs 80 mg 2-08 tablet by ity of tablet 00:00: mouth [place] 00 every 48 Medical ([facility]) hours. spironolact 2021-08 Yes 25mg Take 1 [facility] ers one 25 mg 2-08 tablet by ity o f tablet 00:00: mouth [place] 00 every 48 Medical ([facility]) hours. furosemide 2021-08 Yes 80mg Take 1 [facility] rs 80 mg 2-08 tablet by ity of tablet 00:00: mouth [place] 00 every 48 Medical ([facility]) hours. spironolact 2021-08 Yes 25mg Take 1 [facility] ers one 25 mg 2-08 tablet by ity o f tablet 00:00: mouth [place] 00 every 48 Medical ([facility]) hours. furosemide 2021-08 Yes 80mg Take 1 [facility] rs 80 mg 2-08 tablet by ity of tablet 00:00: mouth [place] 00 every 48 Medical ([facility]) hours. spironolact 2021-08 Yes 25mg Take 1 [facility] ers one 25 mg 2-08 tablet by ity o f tablet 00:00: mouth [place] 00 every 48 Medical ([facility]) hours. furosemide 2021-08 Yes 80mg Take 1 [facility] rs 80 mg 2-08 tablet by ity of tablet 00:00: mouth [place] 00 every 48 Medical ([facility]) hours. spironolact 2021-08 Yes 25mg Take 1 [facility] ers one 25 mg 2-08 tablet by ity o f tablet 00:00: mouth [place] 00 every 48 Medical ([facility]) hours. furosemide 2021- Yes 80mg Take 1 [facility] rs 80 mg 2-08 tablet by ity of tablet 00:00: mouth [place] 00 every 48 Medical ([facility]) hours. spironolact 2021-08 Yes 25mg Take 1 [facility] ers one 25 mg 2-08 tablet by ity o f tablet 00:00: mouth [place] 00 every 48 Medical ([facility]) hours. furosemide 2021- Yes 80mg Take 1 [facility] rs 80 mg 2-08 tablet by ity of tablet 00:00: mouth [place] 00 every 48 Medical ([facility]) hours. spironolact 2021-08 Yes 25mg Take 1 [facility] ers one 25 mg 2-08 tablet by ity o f tablet 00:00: mouth [place] 00 every 48 Medical ([facility]) hours. furosemide 2021-1 Yes 80mg Take 1 [facility] rs 80 mg 2-08 tablet by ity of tablet 00:00: mouth [place] 00 every 48 Medical ([facility]) hours. spironolact 2021-08 Yes 25mg Take 1 [facility] ers one 25 mg 2-08 tablet by ity o f tablet 00:00: mouth [place] 00 every 48 Medical ([facility]) hours. furosemide 2021-1 Yes 80mg Take 1 [facility] rs 80 mg 2-08 tablet by ity of tablet 00:00: mouth [place] 00 every 48 Medical ([facility]) hours. spironolact 2021-08 Yes 25mg Take 1 [facility] ers one 25 mg 2-08 tablet by ity o f tablet 00:00: mouth [place] 00 every 48 Medical ([facility]) hours. furosemide 2021- Yes 80mg Take 1 [facility] rs 80 mg 2-08 tablet by ity of tablet 00:00: mouth [place] 00 every 48 Medical ([facility]) hours. spironolact 2021-08 Yes 25mg Take 1 [facility] ers one 25 mg 2-08 tablet by ity o f tablet 00:00: mouth [place] 00 every 48 Medical ([facility]) hours. furosemide 2021-1 Yes 80mg Take 1 [facility] rs 80 mg 2-08 tablet by ity of tablet 00:00: mouth [place] 00 every 48 Medical ([facility]) hours. spironolact 2021- Yes 25mg Take 1 [facility] ers one 25 mg 2-08 tablet by ity o f tablet 00:00: mouth [place] 00 every 48 Medical ([facility]) hours. furosemide 2021-1 Yes 80mg Take 1 [facility] rs 80 mg 2-08 tablet by ity of tablet 00:00: mouth [place] 00 every 48 Medical ([facility]) hours. spironolact 2021- Yes 25mg Take 1 [facility] ers one 25 mg 2-08 tablet by ity o f tablet 00:00: mouth [place] 00 every 48 Medical ([facility]) hours. furosemide 2-1 Yes 80mg Take 1 [facility] rs 80 mg 2-08 tablet by ity of tablet 00:00: mouth [place] 00 every 48 Medical ([facility] ) hours. spironolact 2021- Yes 25mg Take 1 [facility] ers one 25 mg 2-08 tablet by ity o f tablet 00:00: mouth [place] 00 every 48 Medical ([facility]) hours. furosemide 2021-1 Yes 80mg Take 1 [facility] rs 80 mg 2-08 tablet by ity of tablet 00:00: mouth [place] 00 every 48 Medical ([facility]) hours. spironolact 2021- Yes 25mg Take 1 [facility] ers one 25 mg 2-08 tablet by ity o f tablet 00:00: mouth [place] 00 every 48 Medical ([facility] ) hours. furosemide 2021-1 Yes 80mg Take 1 [facility] rs 80 mg 2-08 tablet by ity of tablet 00:00: mouth [place] 00 every 48 Medical ([facility]) hours. spironolact 2021- Yes 25mg Take 1 [facility] ers one 25 mg 2-08 tablet by ity o f tablet 00:00: mouth [place] 00 every 48 Medical ([facility]) hours. furosemide 2021-1 Yes 80mg Take 1 [facility] rs 80 mg 2-08 tablet by ity of tablet 00:00: mouth [place] 00 every 48 Medical ([facility]) hours. spironolact 2021- Yes 25mg Take 1 [facility] ers one 25 mg 2-08 tablet by ity o f tablet 00:00: mouth [place] 00 every 48 Medical ([facility]) hours. furosemide 2021-1 Yes 80mg Take 1 [facility] rs 80 mg 2-08 tablet by ity of tablet 00:00: mouth [place] 00 every 48 Medical ([facility]) hours. spironolact 2021-1 Yes 25mg Take 1 [facility] ers one 25 mg 2-08 tablet by ity o f tablet 00:00: mouth [place] 00 every 48 Medical ([facility]) hours. furosemide 2-1 Yes 80mg Take 1 [facility] rs 80 mg 2-08 tablet by ity of tablet 00:00: mouth [place] 00 every 48 Medical ([facility]) hours. spironolact 2021-1 Yes 25mg Take 1 [facility] ers one 25 mg 2-08 tablet by ity o f tablet 00:00: mouth [place] 00 every 48 Medical ([facility]) hours. furosemide 2021-08 Yes 80mg Take 1 [facility] rs 80 mg 2-08 tablet by ity of tablet 00:00: mouth [place] 00 every 48 Medical ([facility]) hours. spironolact 2021-08 Yes 25mg Take 1 [facility] ers one 25 mg 2-08 tablet by ity o f tablet 00:00: mouth [place] 00 every 48 Medical ([facility]) hours. furosemide 2021-08 Yes 80mg Take 1 [facility] rs 80 mg 2-08 tablet by ity of tablet 00:00: mouth [place] 00 every 48 Medical ([facility]) hours. spironolact 2021-08 Yes 25mg Take 1 [facility] ers one 25 mg 2-08 tablet by ity o f tablet 00:00: mouth [place] 00 every 48 Medical ([facility]) hours. furosemide 2021-08 Yes 80mg Take 1 [facility] rs 80 mg 2-08 tablet by ity of tablet 00:00: mouth [place] 00 every 48 Medical ([facility]) hours. spironolact 2021-08 Yes 25mg Take 1 [facility] ers one 25 mg 2-08 tablet by ity o f tablet 00:00: mouth [place] 00 every 48 Medical ([facility]) hours. quinapriL 2021-08 Yes [id number] 40mg Take 1 [facility] 40 mg 2-07 tablet by ity of tablet 00:00: mouth [place] 00 every Medical morning. Branch quinapriL 2021- Yes [id number] 40mg Take 1 [facility] 40 mg 2-07 tablet by ity of tablet 00:00: mouth [place] 00 every Medical morning. Branch quinapriL 2021-1 Yes [id number] 40mg Take 1 [facility] 40 mg 2-07 tablet by ity of tablet 00:00: mouth [place] 00 every Medical morning. Branch quinapriL 2021-1 Yes [id number] 40mg Take 1 [facility] 40 mg 2-07 tablet by ity of tablet 00:00: mouth [place] 00 every Medical morning. Branch quinapriL 2021- Yes [id number] 40mg Take 1 [facility] 40 mg 2-07 tablet by ity of tablet 00:00: mouth [place] 00 every Medical morning. Branch quinapriL 2021-08 Yes [id number] 40mg Take 1 [facility] 40 mg 2-07 tablet by ity of tablet 00:00: mouth [place] 00 every Medical morning. Branch quinapriL 2021-08 Yes [id number] 40mg Take 1 [facility] 40 mg 2-07 tablet by ity of tablet 00:00: mouth [place] 00 every Medical morning. Branch quinapriL 2021-08 Yes [id number] 40mg Take 1 [facility] 40 mg 2-07 tablet by ity of tablet 00:00: mouth [place] 00 every Medical morning. Branch quinapriL 2021-08 Yes [id number] 40mg Take 1 [facility] 40 mg 2-07 tablet by ity of tablet 00:00: mouth [place] 00 every Medical morning. Branch quinapriL 2021-08 Yes [id number] 40mg Take 1 [facility] 40 mg 2-07 tablet by ity of tablet 00:00: mouth [place] 00 every Medical morning. Branch quinapriL 2021-08 Yes [id number] 40mg Take 1 [facility] 40 mg 2-07 tablet by ity of tablet 00:00: mouth [place] 00 every Medical morning. Branch quinapriL 2021-08 Yes [id number] 40mg Take 1 [facility] 40 mg 2-07 tablet by ity of tablet 00:00: mouth [place] 00 every Medical morning. Branch quinapriL 2021-08 Yes [id number] 40mg Take 1 [facility] 40 mg 2-07 tablet by ity of tablet 00:00: mouth [place] 00 every Medical morning. Branch quinapriL 2021- Yes [id number] 40mg Take 1 [facility] 40 mg 2-07 tablet by ity of tablet 00:00: mouth [place] 00 every Medical morning. Branch quinapriL 2021- Yes [id number] 40mg Take 1 [facility] 40 mg 2-07 tablet by ity of tablet 00:00: mouth [place] 00 every Medical morning. Branch quinapriL 2021-1 Yes [id number] 40mg Take 1 [facility] 40 mg 2-07 tablet by ity of tablet 00:00: mouth [place] 00 every Medical morning. Branch quinapriL 2021-1 Yes [id number] 40mg Take 1 [facility] 40 mg 2-07 tablet by ity of tablet 00:00: mouth [place] 00 every Medical morning. Branch quinapriL 2022-1 Yes [id number] 40mg Take 1 [facility] 40 mg 2-07 tablet by ity of tablet 00:00: mouth [place] 00 every Medical morning. Branch quinapriL 2021-08 Yes [id number] 40mg Take 1 [facility] 40 mg 2-07 tablet by ity of tablet 00:00: mouth [place] 00 every Medical morning. Branch quinapriL 2021-08 Yes [id number] 40mg Take 1 [facility] 40 mg 2-07 tablet by ity of tablet 00:00: mouth [place] 00 every Medical morning. Branch quinapriL 2021-08 Yes [id number] 40mg Take 1 [facility] 40 mg 2-07 tablet by ity of tablet 00:00: mouth [place] 00 every Medical morning. Branch quinapriL 2021-08 Yes [id number] 40mg Take 1 [facility] 40 mg 2-07 tablet by ity of tablet 00:00: mouth [place] 00 every Medical morning. Branch quinapriL 2021-08 Yes [id number] 40mg Take 1 [facility] 40 mg 2-07 tablet by ity of tablet 00:00: mouth [place] 00 every Medical morning. Branch quinapriL 2021-08 Yes [id number] 40mg Take 1 [facility] 40 mg 2-07 tablet by ity of tablet 00:00: mouth [place] 00 every Medical morning. Branch quinapriL 2021-08 Yes [id number] 40mg Take 1 [facility] 40 mg 2-07 tablet by ity of tablet 00:00: mouth [place] 00 every Medical morning. Branch quinapriL 2021-08 Yes [id number] 40mg Take 1 [facility] 40 mg 2-07 tablet by ity of tablet 00:00: mouth [place] 00 every Medical morning. Branch quinapriL 2021-08 Yes [id number] 40mg Take 1 [facility] 40 mg 2-07 tablet by ity of tablet 00:00: mouth [place] 00 every Medical morning. Branch quinapriL 2021-08 Yes [id number] 40mg Take 1 [facility] 40 mg 2-07 tablet by ity of tablet 00:00: mouth [place] 00 every Medical morning. Branch quinapriL 2021-08 Yes [id number] 40mg Take 1 [facility] 40 mg 2-07 tablet by ity of tablet 00:00: mouth [place] 00 every Medical morning. Branch quinapriL 2021-08 Yes [id number] 40mg Take 1 [facility] 40 mg 2-07 tablet by ity of tablet 00:00: mouth [place] 00 every Medical morning. Branch quinapriL 2021-08 Yes [id number] 40mg Take 1 [facility] 40 mg [...] s: chronic pain MUPIROCIN 2 2021-08 Yes [id number] APPLY U nivers % ointment 1-28 TOPICALLY ity of 00:00: TO THE [place] [address] AFFECTED Medical AREA THREE Branch TIMES DAILY MUPIROCIN 2 2021-08 Yes [id number] APPLY U nivers % ointment 1-28 TOPICALLY ity of 00:00: TO THE [place] AFFECTED Medical AREA THREE Branch TIMES DAILY MUPIROCIN 2 2021-08 Yes [id number] APPLY U nivers % ointment 1-28 TOPICALLY ity of 00:00: TO THE [place] AFFECTED Medical AREA THREE Branch TIMES DAILY MUPIROCIN 2 2021-08 Yes [id number] APPLY U nivers % ointment 1-28 TOPICALLY ity of 00:00: TO THE [place] AFFECTED Medical AREA THREE Branch TIMES DAILY MUPIROCIN 2 2021-08 Yes [id number] APPLY U nivers % ointment 1-28 TOPICALLY ity of 00:00: TO THE [place] AFFECTED Medical AREA THREE Branch TIMES DAILY MUPIROCIN 2 2021-08 Yes [id number] APPLY U nivers % ointment 1-28 TOPICALLY ity of 00:00: TO THE [place] 00 AFFECTED Medical AREA THREE Branch TIMES DAILY MUPIROCIN 2 2021-08 Yes [id number] APPLY U nivers % ointment 1-28 TOPICALLY ity of 00:00: TO THE [place] 00 AFFECTED Medical AREA THREE Branch TIMES DAILY MUPIROCIN 2 2021-08 Yes [id number] APPLY U nivers % ointment 1-28 TOPICALLY ity of 00:00: TO THE [place] 00 AFFECTED Medical AREA THREE Branch TIMES DAILY MUPIROCIN 2 2021-08 Yes [id number] APPLY U nivers % ointment 1-28 TOPICALLY ity of 00:00: TO THE [place] 00 AFFECTED Medical AREA THREE Branch TIMES DAILY MUPIROCIN 2 2021-08 Yes [id number] APPLY U nivers % ointment 1-28 TOPICALLY ity of 00:00: TO THE [place] 00 AFFECTED Medical AREA THREE Branch TIMES DAILY MUPIROCIN 2 2021-08 Yes [id number] APPLY U nivers % ointment 1-28 TOPICALLY ity of 00:00: TO THE [place] 00 AFFECTED Medical AREA THREE Branch TIMES DAILY MUPIROCIN 2 2021-08 Yes [id number] APPLY U nivers % ointment 1-28 TOPICALLY ity of 00:00: TO THE [place] 00 AFFECTED Medical AREA THREE Branch TIMES DAILY MUPIROCIN 2 2021-08 Yes [id number] APPLY U nivers % ointment 1-28 TOPICALLY ity of 00:00: TO THE [place] 00 AFFECTED Medical AREA THREE Branch TIMES DAILY MUPIROCIN 2 2021-08 Yes [id number] APPLY U nivers % ointment 1-28 TOPICALLY ity of 00:00: TO THE [place] 00 AFFECTED Medical AREA THREE Branch TIMES DAILY MUPIROCIN 2 2021-08 Yes [id number] APPLY U nivers % ointment 1-28 TOPICALLY ity of 00:00: TO THE [place] 00 AFFECTED Medical AREA THREE Branch TIMES DAILY MUPIROCIN 2 2021-08 Yes [id number] APPLY U nivers % ointment 1-28 TOPICALLY ity of 00:00: TO THE [place] 00 AFFECTED Medical AREA THREE Branch TIMES DAILY MUPIROCIN 2 2021-08 Yes [id number] APPLY U nivers % ointment 1-28 TOPICALLY ity of 00:00: TO THE [place] 00 AFFECTED Medical AREA THREE Branch TIMES DAILY MUPIROCIN 2 2021-08 Yes [id number] APPLY U nivers % ointment 1-28 TOPICALLY ity of 00:00: TO THE [place] 00 AFFECTED Medical AREA THREE Branch TIMES DAILY MUPIROCIN 2 2021-08 Yes [id number] APPLY U nivers % ointment 1-28 TOPICALLY ity of 00:00: TO THE [place] AFFECTED Medical AREA THREE Branch TIMES DAILY MUPIROCIN 2 2021-08 Yes [id number] APPLY U nivers % ointment 1-28 TOPICALLY ity of 00:00: TO THE [place] AFFECTED Medical AREA THREE Branch TIMES DAILY MUPIROCIN 2 2021-08 Yes [id number] APPLY U nivers % ointment 1-28 TOPICALLY ity of 00:00: TO THE [place] AFFECTED Medical AREA THREE Branch TIMES DAILY MUPIROCIN 2 2021-08 Yes [id number] APPLY U nivers % ointment 1-28 TOPICALLY ity of 00:00: TO THE [place] AFFECTED Medical AREA THREE Branch TIMES DAILY MUPIROCIN 2 2021-08 Yes [id number] APPLY U nivers % ointment 1-28 TOPICALLY ity of 00:00: TO THE [place] AFFECTED Medical AREA THREE Branch TIMES DAILY MUPIROCIN 2 2021-08 Yes [id number] APPLY U nivers % ointment 1-28 TOPICALLY ity of 00:00: TO THE [place] AFFECTED Medical AREA THREE Branch TIMES DAILY MUPIROCIN 2 2021-08 Yes [id number] APPLY U nivers % ointment 1-28 TOPICALLY ity of 00:00: TO THE [place] AFFECTED Medical AREA THREE Branch TIMES DAILY MUPIROCIN 2 2021-08 Yes [id number] APPLY U nivers % ointment 1-28 TOPICALLY ity of 00:00: TO THE [place] 00 AFFECTED Medical AREA THREE Branch TIMES DAILY MUPIROCIN 2 2021-08 Yes [id number] APPLY U nivers % ointment 1-28 TOPICALLY ity of 00:00: TO THE [place] AFFECTED Medical AREA THREE Branch TIMES DAILY MUPIROCIN 2 2021-08 Yes [id number] APPLY U nivers % ointment 1-28 TOPICALLY ity of 00:00: TO THE [place] AFFECTED Medical AREA THREE Branch TIMES DAILY MUPIROCIN 2 2021-08 Yes [id number] APPLY U nivers % ointment 1-28 TOPICALLY ity of 00:00: TO THE [place] AFFECTED Medical AREA THREE Branch TIMES DAILY MUPIROCIN 2 2021-08 Yes [id number] APPLY U nivers % ointment 1-28 TOPICALLY ity of 00:00: TO THE [place] AFFECTED Medical AREA THREE Branch TIMES DAILY MUPIROCIN 2 2021-08 Yes [id number] APPLY U nivers % ointment 1-28 TOPICALLY ity of 00:00: TO THE [place] AFFECTED Medical AREA THREE Branch TIMES DAILY MUPIROCIN 2 2021-08 Yes [id number] APPLY U nivers % ointment 1-28 TOPICALLY ity of 00:00: TO THE [place] AFFECTED Medical AREA THREE Branch TIMES DAILY MUPIROCIN 2 2021-08 Yes [id number] APPLY U nivers % ointment 1-28 TOPICALLY ity of 00:00: TO THE [place] AFFECTED Medical AREA THREE Branch TIMES DAILY MUPIROCIN 2 2021-08 Yes [id number] APPLY U nivers % ointment 1-28 TOPICALLY ity of 00:00: TO THE [place] AFFECTED Medical AREA THREE Branch TIMES DAILY clonazePAM 2021-08 Yes [id number] 1mg Take 1 U nivers 1 mg tablet 1-21 tablet by ity of 00:00: mouth in [place] [address] the Medical morning Branch and 1 tablet at noon and 1 tablet in the evening. clonazePAM 2021-08 Yes [id number] 1mg Take 1 U nivers 1 mg tablet 1-21 tablet by ity of 00:00: mouth in [place] [address] the Medical morning Branch and 1 tablet at noon and 1 tablet in the evening. clonazePAM 2021-08 Yes [id number] 1mg Take 1 U nivers 1 mg tablet 1-21 tablet by ity of 00:00: mouth in [place] [address] the Medical morning Branch and 1 tablet at noon and 1 tablet in the evening. clonazePAM 2021-08 Yes [id number] 1mg Take 1 U nivers 1 mg tablet 1-21 tablet by ity of 00:00: mouth in [address] Medical morning Branch and 1 tablet at noon and 1 tablet in the evening. clonazePAM Yes [id number] 1mg Take 1 U nivers 1 mg tablet 1-21 tablet by ity of 00:00: mouth in [place] 00 the Medical morning Branch and 1 tablet at noon and 1 tablet in the evening. clonazePAM 2021-1 Yes [id number] 1mg Take 1 U nivers 1 mg tablet 1-21 tablet by ity of 00:00: mouth in [place] [address] the Medical morning Branch and 1 tablet at noon and 1 tablet in the evening. clonazePAM 2021- Yes [id number] 1mg Take 1 U nivers 1 mg tablet 1-21 tablet by ity of 00:00: mouth in [place] [address] the Medical morning Branch and 1 tablet at noon and 1 tablet in the evening. clonazePAM 2021- Yes [id number] 1mg Take 1 U nivers 1 mg tablet 1-21 tablet by ity of 00:00: mouth in [place] [address] the Medical morning Branch and 1 tablet at noon and 1 tablet in the evening. clonazePAM 2021- Yes [id number] 1mg Take 1 U nivers 1 mg tablet 1-21 tablet by ity of 00:00: mouth in [place] [address] the Medical morning Branch and 1 tablet at noon and 1 tablet in the evening. clonazePAM 2021- Yes [id number] 1mg Take 1 U nivers 1 mg tablet 1-21 tablet by ity of 00:00: mouth in [place] [address] the Medical morning Branch and 1 tablet at noon and 1 tablet in the evening. clonazePAM 2021- Yes [id number] 1mg Take 1 U nivers 1 mg tablet 1-21 tablet by ity of 00:00: mouth in [place] [address] the Medical morning Branch and 1 tablet at noon and 1 tablet in the evening. clonazePAM 2021- Yes [id number] 1mg Take 1 U nivers 1 mg tablet 1-21 tablet by ity of 00:00: mouth in [place] [address] the Medical morning Branch and 1 tablet at noon and 1 tablet in the evening. clonazePAM 2021-1 Yes [id number] 1mg Take 1 U nivers 1 mg tablet 1-21 tablet by ity of 00:00: mouth in [place] [address] the Medical morning Branch and 1 tablet at noon and 1 tablet in the evening. clonazePAM 2021-1 Yes [id number] 1mg Take 1 U nivers 1 mg tablet 1-21 tablet by ity of 00:00: mouth in [place] [address] the Medical morning Branch and 1 tablet at noon and 1 tablet in the evening. clonazePAM 2021- Yes [id number] 1mg Take 1 U nivers 1 mg tablet 1-21 tablet by ity of 00:00: mouth in [place] [address] the Medical morning Branch and 1 tablet at noon and 1 tablet in the evening. clonazePAM 2021- Yes [id number] 1mg Take 1 U nivers 1 mg tablet 1-21 tablet by ity of 00:00: mouth in [place] [address] the Medical morning Branch and 1 tablet at noon and 1 tablet in the evening. clonazePAM 2021- Yes [id number] 1mg Take 1 U nivers 1 mg tablet 1-21 tablet by ity of 00:00: mouth in [place] [address] the Medical morning Branch and 1 tablet at noon and 1 tablet in the evening. clonazePAM 2021- Yes [id number] 1mg Take 1 U nivers 1 mg tablet 1-21 tablet by ity of 00:00: mouth in [place] [address] the Medical morning Branch and 1 tablet at noon and 1 tablet in the evening. clonazePAM 2021- Yes [id number] 1mg Take 1 [facility] 1 mg tablet 1-21 tablet by ity of 00:00: mouth in [place] [address] the Medical morning Branch and 1 tablet at noon and 1 tablet in the evening. clonazePAM 2021-1 Yes [id number] 1mg Take 1 [facility] nivers 1 mg tablet 1-21 tablet by ity of 00:00: mouth in [place] [address] the Medical morning Branch and 1 tablet at noon and 1 tablet in the evening. clonazePAM 2021- Yes [id number] 1mg Take 1 [facility] nivers 1 mg tablet 1-21 tablet by ity of 00:00: mouth in [place] [address] the Medical morning Branch and 1 tablet at noon and 1 tablet in the evening. clonazePAM 2021-1 Yes [id number] 1mg Take 1 [facility] nivers 1 mg tablet 1-21 tablet by ity of 00:00: mouth in [place] [address] the Medical morning Branch and 1 tablet at noon and 1 tablet in the evening. clonazePAM 2021-1 Yes [id number] 1mg Take 1 [facility] nivers 1 mg tablet 1-21 tablet by ity of 00:00: mouth in [place] [address] the Medical morning Branch and 1 tablet at noon and 1 tablet in the evening. clonazePAM 2021- Yes [id number] 1mg Take 1 [facility] nivers 1 mg tablet 1-21 tablet by ity of 00:00: mouth in [place] [address] the Medical morning Branch and 1 tablet at noon and 1 tablet in the evening. clonazePAM 2021- Yes [id number] 1mg Take 1 [facility] nivers 1 mg tablet 1-21 tablet by ity of 00:00: mouth in [place] [address] the Medical morning Branch and 1 tablet at noon and 1 tablet in the evening. clonazePAM 2021- Yes [id number] 1mg Take 1 [facility] nivers 1 mg tablet 1-21 tablet by ity of 00:00: mouth in [place] [address] the Medical morning Branch and 1 tablet at noon and 1 tablet in the evening. clonazePAM 2021- Yes [id number] 1mg Take 1 [facility] nivers 1 mg tablet 1-21 tablet by ity of 00:00: mouth in [place] [address] the Medical morning Branch and 1 tablet at noon and 1 tablet in the evening. clonazePAM 2021- Yes [id number] 1mg Take 1 [facility] nivers 1 mg tablet 1-21 tablet by ity of 00:00: mouth in [place] [address] the Medical morning Branch and 1 tablet at noon and 1 tablet in the evening. clonazePAM 2021- Yes [id number] 1mg Take 1 [facility] nivers 1 mg tablet 1-21 tablet by ity of 00:00: mouth in [place] [address] the Medical morning [place] and 1 tablet at noon and 1 tablet in the evening. clonazePAM 2021- Yes [id number] 1mg Take 1 [facility] nivers 1 mg tablet 1-21 tablet by ity of 00:00: mouth in [place] [address] the Medical morning Branch and 1 tablet at noon and 1 tablet in the evening. clonazePAM 2021- Yes [id number] 1mg Take 1 [facility] n[facility] 1 mg tablet 1-21 tablet by ity of 00:00: mouth in [place] [address] the Medical morning Branch and 1 tablet at noon and 1 tablet in the evening. clonazePAM 2021-1 Yes [id number] 1mg Take 1 [facility] 1 mg tablet 1-21 tablet by ity of 00:00: mouth in [address] Medical morning [place] and 1 tablet at noon and 1 tablet in the evening. clonazePAM 2021-2022- No [id number] 1mg Take 1 [facility] 1 mg tablet 08-2318 tablet by it y of 00:00: 00:00 mouth in [place] 00 :00 the Medical morning Branch and 1 tablet at noon and 1 tablet in the evening. furosemide 2022-1 Yes 80mg Take 1 [facility] 80 mg 1-09 tablet by ity of tablet 00:00: mouth in [place] 00 the Medical morning. Branch furosemide 2022-1 Yes 80mg Take 1 [facility] 80 mg 1-09 tablet by ity of tablet 00:00: mouth in [place] 00 the Medical morning. Branch furosemide 2022-1 Yes 80mg Take 1 [facility] 80 mg 1-09 tablet by ity of tablet 00:00: mouth in [place] 00 the Medical morning. Branch furosemide 2022-1 Yes 80mg Take 1 [facility] rs 80 mg 1-09 tablet by ity of tablet 00:00: mouth in [place] 00 the Medical morning. Branch furosemide 2022-1 Yes 80mg Take 1 [facility] rs 80 mg 1-09 tablet by ity of tablet 00:00: mouth in [place] 00 the Medical morning. Branch furosemide 2022-1 Yes 80mg Take 1 [facility] rs 80 mg 1-09 tablet by ity of tablet 00:00: mouth in [place] 00 the Medical morning. Branch furosemide 2022-1 Yes 80mg Take 1 [facility] rs 80 mg 1-09 tablet by ity of tablet 00:00: mouth in [place] 00 the Medical morning. Branch furosemide 2022-1 Yes 80mg Take 1 [facility] rs 80 mg 1-09 tablet by ity of tablet 00:00: mouth in [place] 00 the Medical morning. Branch furosemide 2022-1 Yes 80mg Take 1 [facility] rs 80 mg 1-09 tablet by ity of tablet 00:00: mouth in [place] 00 the Medical morning. Branch furosemide 2022-1 Yes 80mg Take 1 [facility] rs 80 mg 1-09 tablet by ity of tablet 00:00: mouth in [place] 00 the Medical morning. Branch furosemide 2022-1 Yes 80mg Take 1 [facility] rs 80 mg 1-09 tablet by ity of tablet 00:00: mouth in [place] 00 the Medical morning. Branch furosemide 2022-1 Yes 80mg Take 1 [facility] rs 80 mg 1-09 tablet by ity of tablet 00:00: mouth in [place] 00 the Medical morning. Branch furosemide 2022-1 Yes 80mg Take 1 [facility] rs 80 mg 1-09 tablet by ity of tablet 00:00: mouth in [place] 00 the Medical morning. Branch furosemide 2021-08 Yes 80mg Take 1 [facility] rs 80 mg 1-09 tablet by ity of tablet 00:00: mouth in [place] 00 the Medical morning. Branch furosemide 2021- Yes 80mg Take 1 [facility] rs 80 mg 1-09 tablet by ity of tablet 00:00: mouth in [place] 00 the Medical morning. Branch furosemide 2021- Yes 80mg Take 1 [facility] rs 80 mg 1-09 tablet by ity of tablet 00:00: mouth in [place] 00 the Medical morning. Branch furosemide 2021- Yes 80mg Take 1 [facility] rs 80 mg 1-09 tablet by ity of tablet 00:00: mouth in [place] 00 the Medical morning. Branch furosemide 2021- Yes 80mg Take 1 [facility] rs 80 mg 1-09 tablet by ity of tablet 00:00: mouth in [place] 00 the Medical morning. Branch furosemide 2021- Yes 80mg Take 1 [facility] rs 80 mg 1-09 tablet by ity of tablet 00:00: mouth in [place] 00 the Medical morning. Branch furosemide 2021- 2022- No 80mg Take 1 [facility] ers 80 mg 1-09 12-08 tablet by ity of tablet 00:00: 00:00 mouth in [place] 00 :00 the Medical morning. Branch furosemide 2021- 2022- No 80mg Take 1 [facility] ers 80 mg 1-09 12-08 tablet by ity of tablet 00:00: 00:00 mouth in [place] 00 :00 the Medical morning. Branch NIFEdipine 2021- Yes [id number] 30mg Take 1 [facility] ER 30 mg 1-08 tablet by ity of tablet 00:00: mouth in [place] the Medical morning Branch and 1 tablet in the evening. NIFEdipine 2021- Yes [id number] 30mg Take 1 [facility] ER 30 mg 1-08 tablet by ity of tablet 00:00: mouth in [place] the Medical morning Branch and 1 tablet in the evening. NIFEdipine 2021-1 Yes [id number] 30mg Take 1 [facility] ER 30 mg 1-08 tablet by ity of tablet 00:00: mouth in [place] the Medical morning Branch and 1 tablet in the evening. NIFEdipine 2021-1 Yes [id number] 30mg Take 1 [facility] ER 30 mg 1-08 tablet by ity of tablet 00:00: mouth in [place] 00 the Medical morning Branch and 1 tablet in the evening. NIFEdipine 2021-08 Yes [id number] 30mg Take 1 [facility] ER 30 mg 1-08 tablet by ity of tablet 00:00: mouth in [place] 00 the Medical morning Branch and 1 tablet in the evening. NIFEdipine 2021-08 Yes [id number] 30mg Take 1 [facility] ER 30 mg 1-08 tablet by ity of tablet 00:00: mouth in [place] 00 the Medical morning Branch and 1 tablet in the evening. NIFEdipine 2021-08 Yes [id number] 30mg Take 1 [facility] ER 30 mg 1-08 tablet by ity of tablet 00:00: mouth in [place] 00 the Medical morning Branch and 1 tablet in the evening. NIFEdipine 2021-08 Yes [id number] 30mg Take 1 [facility] ER 30 mg 1-08 tablet by ity of tablet 00:00: mouth in [place] 00 the Medical morning Branch and 1 tablet in the evening. NIFEdipine 2021-08 Yes [id number] 30mg Take 1 [facility] ER 30 mg 1-08 tablet by ity of tablet 00:00: mouth in [place] [address] the Medical morning Branch and 1 tablet in the evening. NIFEdipine 2021-08 Yes [id number] 30mg Take 1 [facility] ER 30 mg 1-08 tablet by ity of tablet 00:00: mouth in [place] [address] the Medical morning Branch and 1 tablet in the evening. NIFEdipine 2021-08 Yes [id number] 30mg Take 1 [facility] ER 30 mg 1-08 tablet by ity of tablet 00:00: mouth in [place] 00 the Medical morning Branch and 1 tablet in the evening. NIFEdipine 1 Yes [id number] 30mg Take 1 [facility] ER 30 mg 1-08 tablet by ity of tablet 00:00: mouth in [place] [address] the Medical morning Branch and 1 tablet in the evening. NIFEdipine 1 Yes [id number] 30mg Take 1 [facility] ER 30 mg 1-08 tablet by ity of tablet 00:00: mouth in [place] [address] the Medical morning Branch and 1 tablet in the evening. NIFEdipine 1 Yes [id number] 30mg Take 1 [facility] ER 30 mg 1-08 tablet by ity of tablet 00:00: mouth in [place] [address] the Medical morning Branch and 1 tablet in the evening. NIFEdipine 2021-08 Yes [id number] 30mg Take 1 [facility] ER 30 mg 1-08 tablet by ity of tablet 00:00: mouth in [place] 00 the Medical morning Branch and 1 tablet in the evening. NIFEdipine 2021-1 Yes [id number] 30mg Take 1 [facility] ER 30 mg 1-08 tablet by ity of tablet 00:00: mouth in [place] 00 the Medical morning Branch and 1 tablet in the evening. NIFEdipine 2021-08 Yes [id number] 30mg Take 1 [facility] ER 30 mg 1-08 tablet by ity of tablet 00:00: mouth in [place] 00 the Medical morning Branch and 1 tablet in the evening. NIFEdipine 2021-08 Yes [id number] 30mg Take 1 [facility] ER 30 mg 1-08 tablet by ity of tablet 00:00: mouth in [place] [address] the Medical morning Branch and 1 tablet in the evening. NIFEdipine 2021-08 Yes [id number] 30mg Take 1 [facility] ER 30 mg 1-08 tablet by ity of tablet 00:00: mouth in [place] [address] the Medical morning Branch and 1 tablet in the evening. NIFEdipine 2021-08 Yes [id number] 30mg Take 1 [facility] ER 30 mg 1-08 tablet by ity of tablet 00:00: mouth in [place] 00 the Medical morning Branch and 1 tablet in the evening. NIFEdipine 2021-08 Yes [id number] 30mg Take 1 [facility] ER 30 mg 1-08 tablet by ity of tablet 00:00: mouth in [place] [address] the Medical morning Branch and 1 tablet in the evening. NIFEdipine 1 Yes [id number] 30mg Take 1 [facility] ER 30 mg 1-08 tablet by ity of tablet 00:00: mouth in [place] [address] the Medical morning Branch and 1 tablet in the evening. NIFEdipine 1 Yes [id number] 30mg Take 1 [facility] ER 30 mg 1-08 tablet by ity of tablet 00:00: mouth in [place] [address] the Medical morning Branch and 1 tablet in the evening. NIFEdipine 2021-1 Yes [id number] 30mg Take 1 [facility] ER 30 mg 1-08 tablet by ity of tablet 00:00: mouth in [place] [address] the Medical morning Branch and 1 tablet in the evening. NIFEdipine 2021-1 Yes [id number] 30mg Take 1 [facility] ER 30 mg 1-08 tablet by ity of tablet 00:00: mouth in [place] 00 the Medical morning Branch and 1 tablet in the evening. NIFEdipine 2021-08 Yes [id number] 30mg Take 1 [facility] ER 30 mg 1-08 tablet by ity of tablet 00:00: mouth in [place] 00 the Medical morning Branch and 1 tablet in the evening. NIFEdipine 2021-08 Yes [id number] 30mg Take 1 [facility] ER 30 mg 1-08 tablet by ity of tablet 00:00: mouth in [place] 00 the Medical morning Branch and 1 tablet in the evening. NIFEdipine 2021-08 Yes [id number] 30mg Take 1 [facility] ER 30 mg 1-08 tablet by ity of tablet 00:00: mouth in [place] 00 the Medical morning Branch and 1 tablet in the evening. NIFEdipine 2021-08 Yes [id number] 30mg Take 1 [facility] ER 30 mg 1-08 tablet by ity of tablet 00:00: mouth in [place] 00 the Medical morning Branch and 1 tablet in the evening. NIFEdipine 2021-08 Yes [id number] 30mg Take 1 [facility] ER 30 mg 1-08 tablet by ity of tablet 00:00: mouth in [place] 00 the Medical morning Branch and 1 tablet in the evening. NIFEdipine 2021-08 Yes [id number] 30mg Take 1 [facility] ER 30 mg 1-08 tablet by ity of tablet 00:00: mouth in [place] 00 the Medical morning Branch and 1 tablet in the evening. NIFEdipine 2021-08 Yes [id number] 30mg Take 1 [facility] ER 30 mg 1-08 tablet by ity of tablet 00:00: mouth in [place] 00 the Medical morning Branch and 1 tablet in the evening. NIFEdipine 2021-08 Yes [id number] 30mg Take 1 [facility] ER 30 mg 1-08 tablet by ity of tablet 00:00: mouth in [place] 00 the Medical morning Branch and 1 tablet in the evening. NIFEdipine 2021-08- No [id number] 30mg Take 1 [facility] ER 30 mg -08 12-19 tablet by ity o f tablet 00:00: 00:00 mouth in [place] 00 :00 the Medical morning Branch and 1 tablet in the evening. NIFEdipine 2021-08- No [id number] 30mg Take 1 [facility] ER 30 mg 1-08 12-19 tablet by ity o f tablet 00:00: 00:00 mouth in [place] 00 :00 the Medical morning Branch and 1 tablet in the evening. insulin 2021-08 Yes [id number] ADMINISTER [facility] 08-05 62 UNITS ity of ([place] 00:00[place]LE[place] 00 SKIN THREE [facility] U-200) 200 TIMES Branch unit/mL (3 DAILY mL) InPn insulin 2021-08 Yes [id number] ADMINISTER [facility] 08-05 62 UNITS ity of ([place] 00:00: [place]LE[place] 00 SKIN THREE [facility] U-200) 200 TIMES Branch unit/mL (3 DAILY mL) InPn insulin 2021-08 Yes [id number] ADMINISTER [facility] 08-05 62 UNITS ity of ([place] 00:00: [place]LE[place] 00 SKIN THREE [facility] U-200) 200 TIMES Branch unit/mL (3 DAILY mL) InPn insulin 2021-08 Yes [id number] ADMINISTER [facility] 08-05 62 UNITS ity of ([place] 00:00: [place] THE [place]LE[place] 00 SKIN THREE [facility] U-200) 200 TIMES Branch unit/mL (3 DAILY mL) InPn insulin 2021-08 Yes [id number] ADMINISTER [facility] 08-05 62 UNITS ity of ([place] 00:00: [place]LE[place] 00 SKIN THREE [facility] U-200) 200 TIMES Branch unit/mL (3 DAILY mL) InPn insulin 2021-08 Yes [id number] ADMINISTER [facility] 08-05 62 UNITS ity of ([place] 00:00: [place] THE [place]LE[place] 00 SKIN THREE [facility] U-200) 200 TIMES Branch unit/mL (3 DAILY mL) InPn insulin 2021-08 Yes [id number] ADMINISTER [facility] 03 62 UNITS ity of ([place] 00:00: [place]LE[place] 00 SKIN THREE [facility] U-200) 200 TIMES Branch unit/mL (3 DAILY mL) InPn insulin 2021-08 Yes [id number] ADMINISTER [facility] -03 62 UNITS ity of ([place] 00:00: [place] THE [place]LEXTOU[place] 00 SKIN THREE [facility] U-200) 200 TIMES Branch unit/mL (3 DAILY mL) InPn insulin 2021-08 Yes [id number] ADMINISTER [facility] -03 62 UNITS ity of ([place] 00:00: [place] THE [place]LE[place] 00 SKIN THREE [facility] U-200) 200 TIMES Branch unit/mL (3 DAILY mL) InPn insulin 2021-08 Yes [id number] ADMINISTER [facility] -03 62 UNITS ity of ([place] 00:00: UND[place] THE [place]LE[place] 00 SKIN THREE [facility] U-200) 200 TIMES Branch unit/mL (3 DAILY mL) InPn insulin 2021-08 Yes [id number] ADMINISTER [facility] 08-05 62 UNITS ity of ([place] 00:00: [place] THE [place]LE[place] 00 SKIN THREE Medi ashly[facility] U-200) 200 TIMES Branch unit/mL (3 DAILY mL) InPn insulin 2021-08 Yes [id number] ADMINISTER [facility] 08-05 62 UNITS ity of ([place] 00:00: [place] THE [place]LE[place] 00 SKIN THREE [facility] U-200) 200 TIMES Branch unit/mL (3 DAILY mL) InPn insulin 2021-08 Yes [id number] ADMINISTER [facility] 08-05 62 UNITS ity of ([place] 00:00: [place] THE [place]LE[place] 00 SKIN THREE [facility] U-200) 200 TIMES Branch unit/mL (3 DAILY mL) InPn insulin 2021-08 Yes [id number] ADMINISTER [facility] 08-05 62 UNITS ity of ([place] 00:00: [place] THE [place]LE[place] 00 SKIN THREE [facility] U-200) 200 TIMES Branch unit/mL (3 DAILY mL) InPn insulin 2021-08 Yes [id number] ADMINISTER [facility] 03 62 UNITS ity of ([place] 00:00: [place] THE [place] 00 SKIN THREE [facility] U-200) 200 TIMES Branch unit/mL (3 DAILY mL) InPn insulin 2021-08 Yes [id number] ADMINISTER [facility] 03 62 UNITS ity of ([place] 00:00: [place] THE [place]LE[place] 00 SKIN THREE [facility]i [facility] U-200) 200 TIMES Branch unit/mL (3 DAILY mL) InPn insulin 2021-08 Yes [id number] ADMINISTER [facility] 1-03 62 UNITS ity of ([place] 00:00: [place] THE [place]LE[place] 00 SKIN THREE [facility] U-200) 200 TIMES Branch unit/mL (3 DAILY mL) InPn insulin 2021-08 Yes [id number] ADMINISTER [facility] 03 62 UNITS ity of ([place] 00:00: [place] THE [place]LE[place] 00 SKIN THREE [facility] U-200) 200 TIMES Branch unit/mL (3 DAILY mL) InPn insulin 2021-08 Yes [id number] ADMINISTER [facility] 08-05 62 UNITS ity of ([place] 00:00: [place] THE [place]LE[place] 00 SKIN THREE [facility] U-200) 200 TIMES Branch unit/mL (3 DAILY mL) InPn insulin 2021-08 Yes [id number] ADMINISTER [facility] 08-05 62 UNITS ity of ([place] 00:00: [place] THE [place]LE[place] 00 SKIN THREE [facility] U-200) 200 TIMES Branch unit/mL (3 DAILY mL) InPn insulin 2021-08 Yes [id number] ADMINISTER [facility] 03 62 UNITS ity of ([place] 00:00: [place] THE [place] 00 SKIN THREE [facility] U-200) 200 TIMES Branch unit/mL (3 DAILY mL) InPn insulin 2021-08 Yes [id number] ADMINISTER [facility] 03 62 UNITS ity of ([place] 00:00: [place] 00 SKIN THREE [facility] U-200) 200 TIMES Branch unit/mL (3 DAILY mL) InPn insulin 2021-08 Yes [id number] ADMINISTER [facility] 03 62 UNITS ity of ([place] 00:00: [place] THE [place] 00 SKIN THREE [facility] U-200) 200 TIMES Branch unit/mL (3 DAILY mL) InPn insulin 2021-08 Yes [id number] ADMINISTER [facility] -03 62 UNITS ity of ([place] 00:00: [place] THE [place] 00 SKIN THREE [facility] U-200) 200 TIMES Branch unit/mL (3 DAILY mL) InPn insulin 2021-08 Yes [id number] ADMINISTER [facility] 1-03 62 UNITS ity of ([place] 00:00: [place] THE [place] 00 SKIN THREE [facility] U-200) 200 TIMES Branch unit/mL (3 DAILY mL) InPn insulin 2021-08 Yes [id number] ADMINISTER [facility] -03 62 UNITS ity of ([place] 00:00: [place] THE [place] 00 SKIN THREE [facility] U-200) 200 TIMES Branch unit/mL (3 DAILY mL) InPn insulin 2021-08 Yes [id number] ADMINISTER [facility] 08-05 62 UNITS ity of ([place] 00:00: [place] THE [place] 00 SKIN THREE [facility] U-200) 200 TIMES Branch unit/mL (3 DAILY mL) InPn insulin 2021-08 Yes [id number] ADMINISTER [facility] 08-05 62 UNITS ity of ([place] 00:00: [place] 00 SKIN THREE [facility] U-200) 200 TIMES Branch unit/mL (3 DAILY mL) InPn insulin 2021-08 Yes [id number] ADMINISTER [facility] 03 62 UNITS ity of ([place] 00:00: [place] THE [place] 00 SKIN THREE [facility] U-200) 200 TIMES Branch unit/mL (3 DAILY mL) InPn insulin 2021-08 Yes [id number] ADMINISTER [facility] 03 62 UNITS ity of ([place] 00:00: [place] 00 SKIN THREE [facility] U-200) 200 TIMES Branch unit/mL (3 DAILY mL) InPn insulin 2021-08 Yes [id number] ADMINISTER [facility] 03 62 UNITS ity of ([place] 00:00: [place] THE [place] 00 SKIN THREE [facility] U-200) 200 TIMES Branch unit/mL (3 DAILY mL) InPn insulin 2021-08 Yes [id number] ADMINISTER [facility] -03 62 UNITS ity of ([place] 00:00: [place] 00 SKIN THREE [facility] U-200) 200 TIMES Branch unit/mL (3 DAILY mL) InPn insulin 2021-08 Yes [id number] ADMINISTER [facility] 03 62 UNITS ity of ([place] 00:00: [place] 00 SKIN THREE [facility] U-200) 200 TIMES Branch unit/mL (3 DAILY mL) InPn insulin 2021-08 Yes [id number] ADMINISTER [facility] 08-05 62 UNITS ity of ([place] 00:00: [place] 00 SKIN THREE [facility] U-200) 200 TIMES Branch unit/mL (3 DAILY mL) InPn insulin 2021-08 Yes [id number] ADMINISTER [facility] 08-05 62 UNITS ity of ([place] 00:00: [place] 00 SKIN THREE [facility] U-200) 200 TIMES Branch unit/mL (3 DAILY mL) InPn insulin 2021-08 Yes [id number] ADMINISTER [facility] 08-05 62 UNITS ity of ([place] 00:00: [place] 00 SKIN THREE [facility] U-200) 200 TIMES Branch unit/mL (3 DAILY mL) InPn insulin 2021-08 Yes [id number] ADMINISTER [facility] 08-05 62 UNITS ity of ([place] 00:00: [place]LE[place] 00 SKIN THREE [facility] U-200) 200 TIMES Branch unit/mL (3 DAILY mL) InPn insulin 2021-08 Yes [id number] ADMINISTER [facility] 08-05 62 UNITS ity of ([place] 00:00: [place]LE[place] 00 SKIN THREE [facility] U-200) 200 TIMES Branch unit/mL (3 DAILY mL) InPn insulin 2021-08 Yes [id number] ADMINISTER [facility] 03 62 UNITS ity of ([place] 00:00: [place] 00 SKIN THREE [facility] U-200) 200 TIMES Branch unit/mL (3 DAILY mL) InPn insulin 2021-08 Yes [id number] ADMINISTER [facility] 03 62 UNITS ity of ([place] 00:00: [place] 00 SKIN THREE [facility] U-200) 200 TIMES Branch unit/mL (3 DAILY mL) InPn insulin 2021-08 Yes [id number] ADMINISTER [facility] 1-03 62 UNITS ity of ([place] 00:00: [place] 00 SKIN THREE [facility] U-200) 200 TIMES Branch unit/mL (3 DAILY mL) InPn insulin 2021-08 Yes [id number] ADMINISTER [facility] 08-05 62 UNITS ity of ([place] 00:00: [place]LE[place] 00 SKIN THREE [facility] U-200) 200 TIMES Branch unit/mL (3 DAILY mL) InPn insulin 2021-08 Yes [id number] ADMINISTER [facility] 08-05 62 UNITS ity of ([place] 00:00: [place] 00 SKIN THREE [facility] U-200) 200 TIMES Branch unit/mL (3 DAILY mL) InPn insulin 2021-08 Yes [id number] ADMINISTER [facility] 08-05 62 UNITS ity of ([place] 00:00: [place] 00 SKIN THREE [facility] U-200) 200 TIMES Branch unit/mL (3 DAILY mL) InPn insulin 2021-08 Yes [id number] ADMINISTER [facility] 08-05 62 UNITS ity of ([place] 00:00: [place] 00 SKIN THREE [facility] U-200) 200 TIMES Branch unit/mL (3 DAILY mL) InPn insulin 2021-08 Yes [id number] ADMINISTER [facility] 08-05 62 UNITS ity of ([place] 00:00: [place]LE[place] 00 SKIN THREE [facility] U-200) 200 TIMES Branch unit/mL (3 DAILY mL) InPn insulin 2021-08 Yes [id number] ADMINISTER [facility] 08-05 62 UNITS ity of ([place] 00:00: [place] 00 SKIN THREE [facility] U-200) 200 TIMES Branch unit/mL (3 DAILY mL) InPn insulin 2021-08 Yes [id number] ADMINISTER [facility] 08-05 62 UNITS ity of ([place] 00:00: [place] 00 SKIN THREE [facility] U-200) 200 TIMES Branch unit/mL (3 DAILY mL) InPn insulin 2021-08 Yes [id number] ADMINISTER [facility] 08-05 62 UNITS ity of ([place] 00:00: [place] 00 SKIN THREE Medi [facility] U-200) 200 TIMES Branch unit/mL (3 DAILY mL) In insulin 2021-08 Yes [id number] ADMINISTER [facility] degludec 08-05 62 UNITS ity of ([place] 00:00: [place] 00 SKIN THREE Medi ash[facility] U-200) 200 TIMES Branch unit/mL (3 DAILY mL) In insulin 2021-08 Yes [id number] ADMINISTER [facility] degludec 08-05 62 UNITS ity of ([place] 00:00: [place] 00 SKIN THREE Medi ash[facility] U-200) 200 TIMES Branch unit/mL (3 DAILY mL) InPn insulin 2021-08 Yes [id number] ADMINISTER [facility] degludec 08-05 62 UNITS ity of (TRESIBA [...] Indication s: chronic pain AMLODIPINE 2021-08 Yes [id number] 5mg TAKE 1 U nivers 5 mg tablet 0-28 TABLET BY ity of 00:00: MOUTH [place] 00 DAILY Medical Branch AMLODIPINE 2021-08 Yes [id number] 5mg TAKE 1 U nivers 5 mg tablet 0-28 TABLET BY ity of 00:00: MOUTH [place] 00 DAILY Medical Branch AMLODIPINE 2021-08 Yes [id number] 5mg TAKE 1 U nivers 5 mg tablet 0-28 TABLET BY ity of 00:00: MOUTH [place] 00 DAILY Medical Branch AMLODIPINE 2021-08 Yes [id number] 5mg TAKE 1 U nivers 5 mg tablet 0-28 TABLET BY ity of 00:00: MOUTH [place] 00 DAILY Medical Branch AMLODIPINE 2021-08 Yes [id number] 5mg TAKE 1 U nivers 5 mg tablet 0-28 TABLET BY ity of 00:00: MOUTH [place] 00 DAILY Medical Branch AMLODIPINE 2021-2- No [id number] 5mg TAKE 1 [facility] 5 mg tablet 0-28 11-08 TABLET BY it y of 00:00: 00:00 MOUTH [place] 00 :00 DAILY Medical Branch AMLODIPINE 2-1 2- No [id number] 5mg TAKE 1 [facility] 5 mg tablet 0-28 -08 TABLET BY it y of 00:00: 00:00 MOUTH [place] 00 :00 DAILY Medical Branch AMLODIPINE 2-2- No [id number] 5mg TAKE 1 [facility] 5 mg tablet 0-28 -08 TABLET BY it y of 00:00: 00:00 MOUTH [place] 00 :00 DAILY Medical Branch TIZANIDINE 2021- Yes [id number] TAKE 1 [facility] 4 mg tablet 0-24 TABLET BY ity of 00:00: MOUTH [place] 00 EVERY 8 Medical HOURS Branch NEEDED TIZANIDINE 2021- Yes [id number] TAKE 1 [facility] 4 mg tablet 0-24 TABLET BY ity of 00:00: MOUTH [place] 00 EVERY 8 Medical HOURS Branch NEEDED TIZANIDINE 2021- Yes [id number] TAKE 1 [facility] 4 mg tablet 0-24 TABLET BY ity of 00:00: MOUTH [place] 00 EVERY 8 Medical HOURS Branch NEEDED TIZANIDINE 2021- Yes [id number] TAKE 1 [facility] 4 mg tablet 0-24 TABLET BY ity of 00:00: MOUTH [place] 00 EVERY 8 Medical HOURS Branch NEEDED TIZANIDINE 2021-1 Yes [id number] TAKE 1 [facility] 4 mg tablet 0-24 TABLET BY ity of 00:00: MOUTH [place] 00 EVERY 8 Medical HOURS Branch NEEDED TIZANIDINE 2-1 Yes [id number] TAKE 1 [facility] 4 [facility] tablet 0-24 TABLET BY [facility] 00:00: MOUTH [place] 00 EVERY 8 Medical HOURS Branch NEEDED TIZANIDINE 2-1 Yes [id number] TAKE 1 [facility] 4 mg tablet 0-24 TABLET BY [facility] 00:00: MOUTH [place] 00 EVERY 8 Medical HOURS Branch NEEDED TIZANIDINE 2-1 Yes [id number] TAKE 1 [facility] 4 mg tablet 0-24 TABLET BY [facility] 00:00: MOUTH [place] 00 EVERY 8 Medical HOURS Branch NEEDED TIZANIDINE 2-1 Yes [id number] TAKE 1 [facility] 4 mg tablet 0-24 TABLET BY [facility] 00:00: MOUTH [place] 00 EVERY 8 Medical HOURS Branch NEEDED TIZANIDINE 2022-1 Yes [id number] TAKE 1 [facility] 4 mg tablet 0-24 TABLET BY [facility] 00:00: MOUTH [place] 00 EVERY 8 Medical HOURS Branch NEEDED TIZANIDINE 2-1 Yes [id number] TAKE 1 [facility] 4 mg tablet 0-24 TABLET BY [facility] 00:00: MOUTH [place] 00 EVERY 8 Medical HOURS Branch NEEDED TIZANIDINE 2-1 Yes [id number] TAKE 1 [facility] 4 mg tablet 0-24 TABLET BY [facility] 00:00: MOUTH [place] 00 EVERY 8 Medical HOURS Branch NEEDED TIZANIDINE 2-1 Yes [id number] TAKE 1 [facility] 4 mg tablet 0-24 TABLET BY [facility] 00:00: MOUTH [place] 00 EVERY 8 Medical HOURS Branch NEEDED TIZANIDINE 2-1 Yes [id number] TAKE 1 [facility] 4 mg tablet 0-24 TABLET BY [facility] 00:00: MOUTH [place] 00 EVERY 8 Medical HOURS Branch NEEDED TIZANIDINE 2-1 Yes [id number] TAKE 1 [facility] 4 mg tablet 0-24 TABLET BY [facility] 00:00: MOUTH [place] 00 EVERY 8 Medical HOURS Branch NEEDED TIZANIDINE 2-1 Yes [id number] TAKE 1 [facility] 4 mg tablet 0-24 TABLET BY [facility] 00:00: MOUTH [place] 00 EVERY 8 Medical HOURS Branch NEEDED TIZANIDINE 2-1 Yes [id number] TAKE 1 [facility] 4 mg tablet 0-24 TABLET BY [facility] 00:00: MOUTH [place] 00 EVERY 8 Medical HOURS Branch NEEDED TIZANIDINE 2-1 Yes [id number] TAKE 1 [facility] 4 mg tablet 0-24 TABLET BY [facility] 00:00: MOUTH [place] 00 EVERY 8 Medical HOURS Branch NEEDED TIZANIDINE 2-1 Yes [id number] TAKE 1 [facility] 4 mg tablet 0-24 TABLET BY [facility] 00:00: MOUTH [place] 00 EVERY 8 Medical HOURS Branch NEEDED TIZANIDINE 2022-1 Yes [id number] TAKE 1 [facility] 4 mg tablet 0-24 TABLET BY [facility] 00:00: MOUTH [place] 00 EVERY 8 Medical HOURS Branch NEEDED TIZANIDINE 2-1 Yes [id number] TAKE 1 [facility] 4 mg tablet 0-24 TABLET BY [facility] 00:00: MOUTH [place] 00 EVERY 8 Medical HOURS Branch NEEDED TIZANIDINE 2-1 Yes [id number] TAKE 1 [facility] 4 mg tablet 0-24 TABLET BY [facility] 00:00: MOUTH [place] 00 EVERY 8 Medical HOURS Branch NEEDED TIZANIDINE 2022-1 Yes [id number] TAKE 1 [facility] 4 mg tablet 0-24 TABLET BY [facility] 00:00: MOUTH [place] 00 EVERY 8 Medical HOURS Branch NEEDED TIZANIDINE 2022-1 Yes [id number] TAKE 1 [facility] 4 mg tablet 0-24 TABLET BY [facility] 00:00: MOUTH [place] 00 EVERY 8 Medical HOURS Branch NEEDED TIZANIDINE 2022-1 Yes [id number] TAKE 1 [facility] 4 mg tablet 0-24 TABLET BY [facility] 00:00: MOUTH [place] 00 EVERY 8 Medical HOURS Branch NEEDED TIZANIDINE 2-1 Yes [id number] TAKE 1 [facility] 4 mg tablet 0-24 TABLET BY [facility] 00:00: MOUTH [place] 00 EVERY 8 Medical HOURS Branch NEEDED TIZANIDINE 2-1 Yes [id number] TAKE 1 [facility] 4 mg tablet 0-24 TABLET BY [facility] 00:00: MOUTH [place] 00 EVERY 8 Medical HOURS Branch NEEDED TIZANIDINE 2-1 Yes [id number] TAKE 1 [facility] 4 mg tablet 0-24 TABLET BY [facility] 00:00: MOUTH [place] 00 EVERY 8 Medical HOURS Branch NEEDED TIZANIDINE 2-1 Yes [id number] TAKE 1 [facility] 4 mg tablet 0-24 TABLET BY [facility] 00:00: MOUTH [place] 00 EVERY 8 Medical HOURS Branch NEEDED TIZANIDINE 2-1 Yes [id number] TAKE 1 [facility] 4 mg tablet 0-24 TABLET BY [facility] 00:00: MOUTH [place] 00 EVERY 8 Medical HOURS Branch NEEDED TIZANIDINE 2-1 Yes [id number] TAKE 1 [facility] 4 mg tablet 0-24 TABLET BY [facility] 00:00: MOUTH [place] 00 EVERY 8 Medical HOURS Branch NEEDED TIZANIDINE 2022-1 Yes [id number] TAKE 1 [facility] 4 mg tablet 0-24 TABLET BY [facility] 00:00: MOUTH [place] 00 EVERY 8 Medical HOURS Branch NEEDED TIZANIDINE 2-1 Yes [id number] TAKE 1 [facility] 4 mg tablet 0-24 TABLET BY [facility] 00:00: MOUTH [place] 00 EVERY 8 Medical HOURS Branch NEEDED TIZANIDINE 2022-1 Yes [id number] TAKE 1 [facility] 4 mg tablet 0-24 TABLET BY [facility] 00:00: MOUTH [place] 00 EVERY 8 Medical HOURS Branch NEEDED TIZANIDINE 2022-1 Yes [id number] TAKE 1 [facility] 4 mg tablet 0-24 TABLET BY [facility] 00:00: MOUTH [place] 00 EVERY 8 Medical HOURS Branch NEEDED TIZANIDINE 2-1 Yes [id number] TAKE 1 [facility] 4 mg tablet 0-24 TABLET BY [facility] 00:00: MOUTH [place] 00 EVERY 8 Medical HOURS Branch NEEDED TIZANIDINE 2-1 Yes [id number] TAKE 1 [facility] 4 mg tablet 0-24 TABLET BY [facility] 00:00: MOUTH [place] 00 EVERY 8 Medical HOURS Branch NEEDED TIZANIDINE 2-1 Yes [id number] TAKE 1 [facility] 4 mg tablet 0-24 TABLET BY [facility] 00:00: MOUTH [place] 00 EVERY 8 Medical HOURS Branch NEEDED TIZANIDINE 2-1 Yes [id number] TAKE 1 [facility] 4 mg tablet 0-24 TABLET BY [facility] 00:00: MOUTH [place] 00 EVERY 8 Medical HOURS Branch NEEDED TIZANIDINE 2-1 Yes [id number] TAKE 1 [facility] 4 mg tablet 0-24 TABLET BY [facility] 00:00: MOUTH [place] 00 EVERY 8 Medical HOURS Branch NEEDED TIZANIDINE 2-1 Yes [id number] TAKE 1 [facility] 4 mg tablet 0-24 TABLET BY [facility] 00:00: MOUTH [place] 00 EVERY 8 Medical HOURS Branch NEEDED TIZANIDINE 2-1 Yes [id number] TAKE 1 [facility] 4 mg tablet 0-24 TABLET BY [facility] 00:00: MOUTH [place] 00 EVERY 8 Medical HOURS Branch NEEDED TIZANIDINE 2-1 Yes [id number] TAKE 1 [facility] 4 mg tablet 0-24 TABLET BY [facility] 00:00: MOUTH [place] 00 EVERY 8 Medical HOURS Branch NEEDED TIZANIDINE 2-1 Yes [id number] TAKE 1 [facility] 4 mg tablet 0-24 TABLET BY [facility] 00:00: MOUTH [place] 00 EVERY 8 Medical HOURS Branch NEEDED TIZANIDINE 2022-1 Yes [id number] TAKE 1 [facility] 4 mg tablet 0-24 TABLET BY [facility] 00:00: MOUTH [place] 00 EVERY 8 Medical HOURS Branch NEEDED TIZANIDINE 2-1 Yes [id number] TAKE 1 [facility] 4 mg tablet 0-24 TABLET BY [facility] 00:00: MOUTH [place] 00 EVERY 8 Medical HOURS Branch NEEDED TIZANIDINE 2-1 Yes [id number] TAKE 1 [facility] 4 mg tablet 0-24 TABLET BY [facility] 00:00: MOUTH [place] 00 EVERY 8 Medical HOURS Branch NEEDED TIZANIDINE 2- Yes [id number] TAKE 1 [facility] 4 mg tablet 0-24 TABLET BY [facility] 00:00: MOUTH [place] 00 EVERY 8 Medical HOURS Branch NEEDED TIZANIDINE 2021- Yes [id number] TAKE 1 [facility] 4 mg tablet 0-24 TABLET BY [facility] 00:00: MOUTH [place] 00 EVERY 8 Medical HOURS Branch NEEDED TIZANIDINE 2021- Yes [id number] TAKE 1 [facility] 4 mg tablet 0-24 TABLET BY [facility] 00:00: MOUTH [place] 00 EVERY 8 Medical HOURS Branch NEEDED TIZANIDINE 2021- Yes [id number] TAKE 1 [facility] 4 mg tablet 0-24 TABLET BY [facility] 00:00: MOUTH [place] 00 EVERY 8 Medical HOURS Branch NEEDED TIZANIDINE 2021- Yes [id number] TAKE 1 [facility] 4 mg tablet 0-24 TABLET BY [facility] 00:00: MOUTH [place] 00 EVERY 8 Medical HOURS Branch NEEDED TIZANIDINE 2021- Yes [id number] TAKE 1 [facility] 4 mg tablet 0-24 TABLET BY [facility] 00:00: MOUTH [place] 00 EVERY 8 Medical HOURS Branch NEEDED TIZANIDINE 2021- Yes [id number] TAKE 1 [facility] 4 mg tablet 0-24 TABLET BY [facility] 00:00: MOUTH [place] 00 EVERY 8 Medical HOURS Branch NEEDED TIZANIDINE 2021- Yes [id number] TAKE 1 [facility] 4 mg tablet 0-24 TABLET BY [facility] 00:00: MOUTH [place] 00 EVERY 8 Medical HOURS Branch NEEDED TIZANIDINE 2021- Yes [id number] TAKE 1 [facility] 4 mg tablet 0-24 TABLET BY [facility] 00:00: MOUTH [place] 00 EVERY 8 Medical HOURS Branch NEEDED TIZANIDINE 2021-1 3- No [id number] TAKE 1 [facility] 4 mg tablet 0-24 01-17 TABLET BY [facility] 00:00: 00:00 MOUTH [place] 00 :00 EVERY 8 Medical HOURS Branch NEEDED ALBUTEROL 2021- Yes [id number] INHALE 2 [facility] 90 0-21 PUFFS BY [facility] mcg/actuati 00:00: MOUTH [place] on inhaler 00 EVERY 6 Medica l HOURS Branch NEEDED FOR WHEEZING, SHORTNESS OF BREATH OR BRONCHOSPA SMS ALBUTEROL 2021-08 Yes [id number] INHALE 2 [facility] 90 0-21 PUFFS BY [facility] mcg/actuati 00:00: MOUTH [place] on inhaler 00 EVERY 6 Medica l HOURS Branch NEEDED FOR WHEEZING, SHORTNESS OF BREATH OR BRONCHOSPA SMS METFORMIN 2021-08 Yes [id number] TAKE 1 [facility] 850 mg 0-21 TABLET BY [facility] tablet 00:00: MOUTH [place] 00 THREE Medical TIMES Branch DAILY QUINAPRIL 2021-08 Yes [id number] 40mg TAKE 1 [facility] 40 mg 0-21 TABLET BY [facility] tablet 00:00: MOUTH [place] 00 EVERY Medical MORNING Branch GLIPIZIDE 2021-08 Yes [id number] 5mg TAKE 1 [facility] XL 5 mg 24 0-21 TABLET BY [facility] hr tablet 00:00: MOUTH [place] 00 DAILY WITH Medical BREAKFAST Branch amoxicillin 2021-08 Yes [id number] 500mg Take 1 [facility] 500 mg 0-21 tablet by [facility] tablet 00:00: mouth in [place] 00 the Medical morning Branch and 1 tablet in the evening. empaglifloz 2021-08 Yes [id number] 10mg Take 1 [facility] in 0-21 tablet by [facility] ([place]) 00:00: mouth in [place] 10 mg 00 the Medical morning. Branch ALBUTEROL 2021-08 Yes [id number] INHALE 2 [facility] 90 0-21 PUFFS BY [facility] mcg/actuati 00:00: MOUTH [place] on inhaler 00 EVERY 6 Medica l HOURS Branch NEEDED FOR WHEEZING, SHORTNESS OF BREATH OR BRONCHOSPA SMS QUINAPRIL 2021-08 Yes [id number] 40mg TAKE 1 [facility] 40 mg 0-21 TABLET BY [facility] tablet 00:00: MOUTH [place] 00 EVERY Medical MORNING Branch amoxicillin 2021-08 Yes [id number] 500mg Take 1 [facility] 500 mg 0-21 tablet by [facility] tablet 00:00: mouth in [place] 00 the Medical morning Branch and 1 tablet in the evening. empaglifloz 2021-08 Yes [id number] 10mg Take 1 [facility] in 0-21 tablet by [facility] ([place]) 00:00: mouth in [place] 10 mg 00 the Medical morning. Branch ALBUTEROL 2021-08 Yes [id number] INHALE 2 [facility] 90 0-21 PUFFS BY [facility] of mcg/actuati 00:00: MOUTH [place] on inhaler 00 EVERY 6 Medica l HOURS Branch NEEDED FOR WHEEZING, SHORTNESS OF BREATH OR BRONCHOSPA SMS QUINAPRIL 2021-08 Yes [id number] 40mg TAKE 1 [facility] 40 mg 0-21 TABLET BY [facility] tablet 00:00: MOUTH [place] 00 EVERY Medical MORNING Branch amoxicillin 2021-08 Yes [id number] 500mg Take 1 [facility] 500 mg 0-21 tablet by [facility] tablet 00:00: mouth in [place] 00 the Medical morning Branch and 1 tablet in the evening. empaglifloz 2021-08 Yes [id number] 10mg Take 1 [facility] in 0-21 tablet by [facility] ([place]) 00:00: mouth in [place] 10 mg 00 the Medical morning. Branch QUINAPRIL 2021-08 Yes [id number] 40mg TAKE 1 [facility] 40 mg 0-21 TABLET BY [facility] tablet 00:00: MOUTH [place] 00 EVERY Medical MORNING Branch ALBUTEROL 2021-08 Yes [id number] INHALE 2 [facility] 90 0-21 PUFFS BY [facility] of mcg/actuati 00:00: MOUTH [place] on inhaler 00 EVERY 6 Medica l HOURS Branch NEEDED FOR WHEEZING, SHORTNESS OF BREATH OR BRONCHOSPA SMS METFORMIN 2021-08 Yes [id number] TAKE 1 [facility] 850 mg 0-21 TABLET BY [facility] tablet 00:00: MOUTH [place] 00 THREE Medical TIMES Branch DAILY QUINAPRIL 2021-08 Yes [id number] 40mg TAKE 1 [facility] 40 mg 0-21 TABLET BY [facility] tablet 00:00: MOUTH [place] 00 EVERY Medical MORNING Branch GLIPIZIDE 2021-08 Yes [id number] 5mg TAKE 1 [facility] XL 5 mg 24 0-21 TABLET BY [facility] hr tablet 00:00: MOUTH [place] 00 DAILY WITH Medical BREAKFAST Branch amoxicillin 2021-08 Yes [id number] 500mg Take 1 [facility] 500 mg 0-21 tablet by [facility] tablet 00:00: mouth in [place] 00 the Medical morning Branch and 1 tablet in the evening. empaglifloz 2021-08 Yes [id number] 10mg Take 1 [facility] in 0-21 tablet by [facility] ([place]) 00:00: mouth in [place] 10 mg 00 the Medical morning. Branch ALBUTEROL 2021-08 Yes [id number] INHALE 2 [facility] 90 0-21 PUFFS BY [facility] of mcg/actuati 00:00: MOUTH [place] on inhaler 00 EVERY 6 Medica l HOURS Branch NEEDED FOR WHEEZING, SHORTNESS OF BREATH OR BRONCHOSPA SMS METFORMIN 2021-08 Yes [id number] TAKE 1 [facility] 850 mg 0-21 TABLET BY [facility] tablet 00:00: MOUTH [place] 00 THREE Medical TIMES Branch DAILY QUINAPRIL 2021-08 Yes [id number] 40mg TAKE 1 [facility] 40 mg 0-21 TABLET BY [facility] tablet 00:00: MOUTH [place] 00 EVERY Medical MORNING Branch GLIPIZIDE 2021-08 Yes [id number] 5mg TAKE 1 [facility] XL 5 mg 24 0-21 TABLET BY [facility] hr tablet 00:00: MOUTH [place] 00 DAILY WITH Medical BREAKFAST Branch amoxicillin 2021-08 Yes [id number] 500mg Take 1 [facility] 500 mg 0-21 tablet by [facility] tablet 00:00: mouth in [place] 00 the Medical morning Branch and 1 tablet in the evening. empaglifloz 2021-08 Yes [id number] 10mg Take 1 [facility] in 0-21 tablet by [facility] ([place]) 00:00: mouth in [place] 10 mg 00 the Medical morning. Branch ALBUTEROL 2021-08 Yes [id number] INHALE 2 [facility] 90 0-21 PUFFS BY [facility] of mcg/actuati 00:00: MOUTH [place] on inhaler 00 EVERY 6 Medica l HOURS Branch NEEDED FOR WHEEZING, SHORTNESS OF BREATH OR BRONCHOSPA SMS METFORMIN 2021-08 Yes [id number] TAKE 1 [facility] 850 mg 0-21 TABLET BY [facility] tablet 00:00: MOUTH [place] 00 THREE Medical TIMES Branch DAILY QUINAPRIL 2021-08 Yes [id number] 40mg TAKE 1 [facility] 40 mg 0-21 TABLET BY [facility] tablet 00:00: MOUTH [place] 00 EVERY Medical MORNING Branch GLIPIZIDE 2021-08 Yes [id number] 5mg TAKE 1 [facility] XL 5 mg 24 0-21 TABLET BY [facility] hr tablet 00:00: MOUTH [place] 00 DAILY WITH Medical BREAKFAST Branch amoxicillin 2021-08 Yes [id number] 500mg Take 1 [facility] 500 mg 0-21 tablet by [facility] tablet 00:00: mouth in [place] 00 the Medical morning Branch and 1 tablet in the evening. empaglifloz 2021-08 Yes [id number] 10mg Take 1 [facility] in 0-21 tablet by [facility] ([place]) 00:00: mouth in [place] 10 mg 00 the Medical morning. Branch ALBUTEROL 2021-08 Yes [id number] INHALE 2 [facility] 90 0-21 PUFFS BY [facility] of mcg/actuati 00:00: MOUTH [place] on inhaler 00 EVERY 6 Medica l HOURS Branch NEEDED FOR WHEEZING, SHORTNESS OF BREATH OR BRONCHOSPA SMS METFORMIN 2021-08 Yes [id number] TAKE 1 [facility] 850 mg 0-21 TABLET BY [facility] tablet 00:00: MOUTH [place] 00 THREE Medical TIMES Branch DAILY QUINAPRIL 2021-08 Yes [id number] 40mg TAKE 1 [facility] 40 mg 0-21 TABLET BY [facility] tablet 00:00: MOUTH [place] 00 EVERY Medical MORNING Branch GLIPIZIDE 2021-08 Yes [id number] 5mg TAKE 1 [facility] XL 5 mg 24 0-21 TABLET BY [facility] hr tablet 00:00: MOUTH [place] 00 DAILY WITH Medical BREAKFAST Branch amoxicillin 2021-08 Yes [id number] 500mg Take 1 [facility] 500 mg 0-21 tablet by [facility] tablet 00:00: mouth in [place] 00 the Medical morning Branch and 1 tablet in the evening. empaglifloz 2021-08 Yes [id number] 10mg Take 1 [facility] in 0-21 tablet by [facility] ([place]) 00:00: mouth in [place] 10 mg 00 the Medical morning. Branch ALBUTEROL 2021-08 Yes [id number] INHALE 2 [facility] 90 0-21 PUFFS BY [facility] of mcg/actuati 00:00: MOUTH [place] on inhaler 00 EVERY 6 Medica l HOURS Branch NEEDED FOR WHEEZING, SHORTNESS OF BREATH OR BRONCHOSPA SMS METFORMIN 2021-08 Yes [id number] TAKE 1 [facility] 850 mg 0-21 TABLET BY [facility] tablet 00:00: MOUTH [place] 00 THREE Medical TIMES Branch DAILY QUINAPRIL 2021-08 Yes [id number] 40mg TAKE 1 [facility] 40 mg 0-21 TABLET BY [facility] tablet 00:00: MOUTH [place] 00 EVERY Medical MORNING Branch GLIPIZIDE 2021-08 Yes [id number] 5mg TAKE 1 [facility] XL 5 mg 24 0-21 TABLET BY [facility] hr tablet 00:00: MOUTH [place] 00 DAILY WITH Medical BREAKFAST Branch amoxicillin 2021-08 Yes [id number] 500mg Take 1 [facility] 500 mg 0-21 tablet by [facility] tablet 00:00: mouth in [place] 00 the Medical morning Branch and 1 tablet in the evening. empaglifloz 2021-08 Yes [id number] 10mg Take 1 [facility] in 0-21 tablet by [facility] ([place]) 00:00: mouth in [place] 10 mg 00 the Medical morning. Branch ALBUTEROL 2021-08 Yes [id number] INHALE 2 [facility] 90 0-21 PUFFS BY [facility] of mcg/actuati 00:00: MOUTH [place] on inhaler 00 EVERY 6 Medica l HOURS Branch NEEDED FOR WHEEZING, SHORTNESS OF BREATH OR BRONCHOSPA SMS METFORMIN 2021-08 Yes [id number] TAKE 1 [facility] 850 mg 0-21 TABLET BY [facility] tablet 00:00: MOUTH [place] THREE Medical TIMES Branch DAILY QUINAPRIL 2021-08 Yes [id number] 40mg TAKE 1 [facility] 40 mg 0-21 TABLET BY [facility] tablet 00:00: MOUTH [place] EVERY Medical MORNING Branch GLIPIZIDE 2021-08 Yes [id number] 5mg TAKE 1 [facility] XL 5 mg 24 0-21 TABLET BY [facility] hr tablet 00:00: MOUTH [place] 00 DAILY WITH Medical BREAKFAST Branch amoxicillin 2021-08 Yes [id number] 500mg Take 1 [facility] 500 mg 0-21 tablet by [facility] tablet 00:00: mouth in [place] 00 the Medical morning Branch and 1 tablet in the evening. empaglifloz 2021-08 Yes [id number] 10mg Take 1 [facility] in 0-21 tablet by [facility] ([place]) 00:00: mouth in [place] 10 mg 00 the Medical morning. Branch ALBUTEROL 2021-08 Yes [id number] INHALE 2 [facility] 90 0-21 PUFFS BY [facility] of mcg/actuati 00:00: MOUTH [place] on inhaler 00 EVERY 6 Medica l HOURS Branch NEEDED FOR WHEEZING, SHORTNESS OF BREATH OR BRONCHOSPA SMS METFORMIN 2021-08 Yes [id number] TAKE 1 [facility] 850 mg 0-21 TABLET BY [facility] tablet 00:00: MOUTH [place] THREE Medical TIMES Branch DAILY QUINAPRIL 2021-08 Yes [id number] 40mg TAKE 1 [facility] 40 mg 0-21 TABLET BY [facility] tablet 00:00: MOUTH [place] 00 EVERY Medical MORNING Branch GLIPIZIDE 2021-08 Yes [id number] 5mg TAKE 1 [facility] XL 5 mg 24 0-21 TABLET BY [facility] hr tablet 00:00: MOUTH [place] 00 DAILY WITH Medical BREAKFAST Branch amoxicillin 2021-08 Yes [id number] 500mg Take 1 [facility] 500 mg 0-21 tablet by [facility] tablet 00:00: mouth in [place] 00 the Medical morning Branch and 1 tablet in the evening. empaglifloz 2021-08 Yes [id number] 10mg Take 1 [facility] in 0-21 tablet by [facility] ([place]) 00:00: mouth in [place] 10 mg 00 the Medical morning. Branch ALBUTEROL 2021-08 Yes [id number] INHALE 2 [facility] 90 0-21 PUFFS BY [facility] of mcg/actuati 00:00: MOUTH [place] on inhaler 00 EVERY 6 Medica l HOURS Branch NEEDED FOR WHEEZING, SHORTNESS OF BREATH OR BRONCHOSPA SMS METFORMIN 2021-08 Yes [id number] TAKE 1 [facility] 850 mg 0-21 TABLET BY [facility] tablet 00:00: MOUTH [place] 00 THREE Medical TIMES Branch DAILY QUINAPRIL 2021-08 Yes [id number] 40mg TAKE 1 [facility] 40 mg 0-21 TABLET BY [facility] tablet 00:00: MOUTH [place] 00 EVERY Medical MORNING Branch GLIPIZIDE 2021-08 Yes [id number] 5mg TAKE 1 [facility] XL 5 mg 24 0-21 TABLET BY [facility] hr tablet 00:00: MOUTH [place] 00 DAILY WITH Medical BREAKFAST Branch amoxicillin 2021-08 Yes [id number] 500mg Take 1 [facility] 500 mg 0-21 tablet by [facility] tablet 00:00: mouth in [place] 00 the Medical morning Branch and 1 tablet in the evening. empaglifloz 2021-08 Yes [id number] 10mg Take 1 [facility] in 0-21 tablet by [facility] of ([place]) 00:00: mouth in [place] 10 mg 00 the Medical morning. Branch ALBUTEROL 2021-08 Yes [id number] INHALE 2 [facility] 90 0-21 PUFFS BY [facility] of mcg/actuati 00:00: MOUTH [place] on inhaler 00 EVERY 6 Medica l HOURS Branch NEEDED FOR WHEEZING, SHORTNESS OF BREATH OR BRONCHOSPA SMS METFORMIN 2021-08 Yes [id number] TAKE 1 [facility] 850 mg 0-21 TABLET BY [facility] tablet 00:00: MOUTH [place] 00 THREE Medical TIMES Branch DAILY QUINAPRIL 2021-08 Yes [id number] 40mg TAKE 1 [facility] 40 mg 0-21 TABLET BY [facility] of tablet 00:00: MOUTH [place] 00 EVERY Medical MORNING Branch GLIPIZIDE 2021-08 Yes [id number] 5mg TAKE 1 [facility] XL 5 mg 24 0-21 TABLET BY [facility] of hr tablet 00:00: MOUTH [place] 00 DAILY WITH Medical BREAKFAST Branch amoxicillin 2021-08 Yes [id number] 500mg Take 1 [facility] 500 mg 0-21 tablet by [facility] of tablet 00:00: mouth in [place] 00 the Medical morning Branch and 1 tablet in the evening. empaglifloz 2021-08 Yes [id number] 10mg Take 1 [facility] in 0-21 tablet by [facility] of ([place]) 00:00: mouth in [place] 10 mg 00 the Medical morning. Branch ALBUTEROL 2021-08 Yes [id number] INHALE 2 [facility] 90 0-21 PUFFS BY [facility] of mcg/actuati 00:00: MOUTH [place] on inhaler 00 EVERY 6 Medica l HOURS Branch NEEDED FOR WHEEZING, SHORTNESS OF BREATH OR BRONCHOSPA SMS METFORMIN 2021-08 Yes [id number] TAKE 1 [facility] 850 mg 0-21 TABLET BY [facility] of tablet 00:00: MOUTH [place] 00 THREE Medical TIMES Branch DAILY QUINAPRIL 2021-08 Yes [id number] 40mg TAKE 1 [facility] 40 mg 0-21 TABLET BY [facility] of tablet 00:00: MOUTH [place] 00 EVERY Medical MORNING Branch GLIPIZIDE 2021-08 Yes [id number] 5mg TAKE 1 [facility] XL 5 mg 24 0-21 TABLET BY [facility] of hr tablet 00:00: MOUTH [place] 00 DAILY WITH Medical BREAKFAST Branch amoxicillin 2021-08 Yes [id number] 500mg Take 1 [facility] 500 mg 0-21 tablet by [facility] of tablet 00:00: mouth in [place] 00 the Medical morning Branch and 1 tablet in the evening. empaglifloz 2021-08 Yes [id number] 10mg Take 1 [facility] in 0-21 tablet by [facility] of ([place]) 00:00: mouth in [place] 10 mg 00 the Medical morning. Branch ALBUTEROL 2021-08 Yes [id number] INHALE 2 [facility] 90 0-21 PUFFS BY [facility] of mcg/actuati 00:00: MOUTH [place] on inhaler 00 EVERY 6 Medica l HOURS Branch NEEDED FOR WHEEZING, SHORTNESS OF BREATH OR BRONCHOSPA SMS METFORMIN 2021-08 Yes [id number] TAKE 1 [facility] 850 mg 0-21 TABLET BY [facility] of tablet 00:00: MOUTH [place] 00 THREE Medical TIMES Branch DAILY QUINAPRIL 2021-08 Yes [id number] 40mg TAKE 1 [facility] 40 mg 0-21 TABLET BY [facility] of tablet 00:00: MOUTH [place] 00 EVERY Medical MORNING Branch GLIPIZIDE 2021-08 Yes [id number] 5mg TAKE 1 [facility] XL 5 mg 24 0-21 TABLET BY [facility] of hr tablet 00:00: MOUTH [place] 00 DAILY WITH Medical BREAKFAST Branch amoxicillin 2021-08 Yes [id number] 500mg Take 1 [facility] 500 mg 0-21 tablet by [facility] of tablet 00:00: mouth in [place] 00 the Medical morning Branch and 1 tablet in the evening. empaglifloz 2021-08 Yes [id number] 10mg Take 1 [facility] in 0-21 tablet by [facility] of ([place]) 00:00: mouth in [place] 10 mg 00 the Medical morning. Branch ALBUTEROL 2021-08 Yes [id number] INHALE 2 [facility] 90 0-21 PUFFS BY ity of mcg/actuati 00:00: MOUTH [place] on inhaler 00 EVERY 6 Medica l HOURS Branch NEEDED FOR WHEEZING, SHORTNESS OF BREATH OR BRONCHOSPA SMS METFORMIN 2021-08 Yes [id number] TAKE 1 [facility] 850 mg 0-21 TABLET BY [facility] of tablet 00:00: MOUTH [place] 00 THREE Medical TIMES Branch DAILY QUINAPRIL 2021-08 Yes [id number] 40mg TAKE 1 [facility] 40 mg 0-21 TABLET BY [facility] of tablet 00:00: MOUTH [place] 00 EVERY Medical MORNING Branch GLIPIZIDE 2021-08 Yes [id number] 5mg TAKE 1 [facility] XL 5 mg 24 0-21 TABLET BY [facility] of hr tablet 00:00: MOUTH [place] 00 DAILY WITH Medical BREAKFAST Branch amoxicillin 2021-08 Yes [id number] 500mg Take 1 [facility] 500 mg 0-21 tablet by [facility] of tablet 00:00: mouth in [place] 00 the Medical morning Branch and 1 tablet in the evening. empaglifloz 2021-08 Yes [id number] 10mg Take 1 [facility] in 0-21 tablet by [facility] of ([place]) 00:00: mouth in [place] 10 mg 00 the Medical morning. Branch ALBUTEROL 2021-08 Yes [id number] INHALE 2 [facility] 90 0-21 PUFFS BY [facility]y of mcg/actuati 00:00: MOUTH [place] on inhaler 00 EVERY 6 Medica l HOURS Branch NEEDED FOR WHEEZING, SHORTNESS OF BREATH OR BRONCHOSPA SMS METFORMIN 2021-08 Yes [id number] TAKE 1 [facility] 850 mg 0-21 TABLET BY [facility] of tablet 00:00: MOUTH [place] 00 THREE Medical TIMES Branch DAILY QUINAPRIL 2021-08 Yes [id number] 40mg TAKE 1 [facility] 40 mg 0-21 TABLET BY [facility] of tablet 00:00: MOUTH [place] 00 EVERY Medical MORNING Branch GLIPIZIDE 2021-08 Yes [id number] 5mg TAKE 1 [facility] XL 5 mg 24 0-21 TABLET BY [facility] of hr tablet 00:00: MOUTH [place] 00 DAILY WITH Medical BREAKFAST Branch amoxicillin 2021-08 Yes [id number] 500mg Take 1 [facility] 500 mg 0-21 tablet by [facility] of tablet 00:00: mouth in [place] 00 the Medical morning Branch and 1 tablet in the evening. empaglifloz 2021-08 Yes [id number] 10mg Take 1 [facility] in 0-21 tablet by [facility] of ([place]) 00:00: mouth in [place] 10 mg 00 the Medical morning. Branch ALBUTEROL 2021-08 Yes [id number] INHALE 2 [facility] 90 0-21 PUFFS BY [facility]y of mcg/actuati 00:00: MOUTH [place] on inhaler 00 EVERY 6 Medica l HOURS Branch NEEDED FOR WHEEZING, SHORTNESS OF BREATH OR BRONCHOSPA SMS METFORMIN 2021-08 Yes [id number] TAKE 1 [facility] 850 mg 0-21 TABLET BY [facility] of tablet 00:00: MOUTH [place] 00 THREE Medical TIMES Branch DAILY QUINAPRIL 2021-08 Yes [id number] 40mg TAKE 1 [facility] 40 mg 0-21 TABLET BY [facility] of tablet 00:00: MOUTH [place] 00 EVERY Medical MORNING Branch GLIPIZIDE 2021-08 Yes [id number] 5mg TAKE 1 [facility] XL 5 mg 24 0-21 TABLET BY [facility] of hr tablet 00:00: MOUTH [place] 00 DAILY WITH Medical BREAKFAST Branch amoxicillin 2021-08 Yes [id number] 500mg Take 1 [facility] 500 mg 0-21 tablet by [facility] of tablet 00:00: mouth in [place] 00 the Medical morning Branch and 1 tablet in the evening. empaglifloz 2021-08 Yes [id number] 10mg Take 1 [facility] in 0-21 tablet by [facility] of ([place]) 00:00: mouth in [place] 10 mg 00 the Medical morning. Branch ALBUTEROL 2021-08 Yes [id number] INHALE 2 [facility] 90 0-21 PUFFS BY [facility] of mcg/actuati 00:00: MOUTH [place] on inhaler 00 EVERY 6 Medica l HOURS Branch NEEDED FOR WHEEZING, SHORTNESS OF BREATH OR BRONCHOSPA SMS METFORMIN 2021-08 Yes [id number] TAKE 1 [facility] 850 mg 0-21 TABLET BY [facility] of tablet 00:00: MOUTH [place] THREE Medical TIMES Branch DAILY QUINAPRIL 2021-08 Yes [id number] 40mg TAKE 1 [facility] 40 mg 0-21 TABLET BY [facility] of tablet 00:00: MOUTH [place] 00 EVERY Medical MORNING Branch GLIPIZIDE 2021-08 Yes [id number] 5mg TAKE 1 [facility] XL 5 mg 24 0-21 TABLET BY [facility] of hr tablet 00:00: MOUTH [place] 00 DAILY WITH Medical BREAKFAST Branch amoxicillin 2021-08 Yes [id number] 500mg Take 1 [facility] 500 mg 0-21 tablet by [facility] of tablet 00:00: mouth in [place] 00 the Medical morning Branch and 1 tablet in the evening. empaglifloz 2021-08 Yes [id number] 10mg Take 1 [facility]21 tablet by [facility] ([place]) 00:00: mouth in [place] 10 mg 00 the Medical morning. Branch ALBUTEROL 2021-08 Yes [id number] INHALE 2 [facility] 90 0-21 PUFFS BY [facility] mcg/actuati 00:00: MOUTH [place] on inhaler 00 EVERY 6 Medica l HOURS Branch NEEDED FOR WHEEZING, SHORTNESS OF BREATH OR BRONCHOSPA SMS METFORMIN 2021-08 Yes [id number] TAKE 1 [facility] 850 mg 0-21 TABLET BY [facility] tablet 00:00: MOUTH [place] 00 THREE Medical TIMES Branch DAILY QUINAPRIL 2021-08 Yes [id number] 40mg TAKE 1 [facility] 40 mg 0-21 TABLET BY [facility] tablet 00:00: MOUTH [place] 00 EVERY Medical MORNING Branch GLIPIZIDE 2021-08 Yes [id number] 5mg TAKE 1 [facility] XL 5 mg 24 0-21 TABLET BY [facility] hr tablet 00:00: MOUTH [place] 00 DAILY WITH Medical BREAKFAST Branch amoxicillin 2021-08 Yes [id number] 500mg Take 1 [facility] 500 mg 0-21 tablet by [facility] tablet 00:00: mouth in [place] 00 the Medical morning Branch and 1 tablet in the evening. empaglifloz 2021-08 Yes [id number] 10mg Take 1 [facility] 0-21 tablet by [facility] ([place]) 00:00: mouth in [place] 10 mg 00 the Medical morning. Branch ALBUTEROL 2021-08 Yes [id number] INHALE 2 [facility] 90 0-21 PUFFS BY [facility] mcg/actuati 00:00: MOUTH [place] on inhaler 00 EVERY 6 Medica l HOURS Branch NEEDED FOR WHEEZING, SHORTNESS OF BREATH OR BRONCHOSPA SMS METFORMIN 2021-08 Yes [id number] TAKE 1 [facility] 850 mg 0-21 TABLET BY [facility] tablet 00:00: MOUTH [place] 00 THREE Medical TIMES Branch DAILY QUINAPRIL 2021-08 Yes [id number] 40mg TAKE 1 [facility] 40 mg 0-21 TABLET BY [facility] tablet 00:00: MOUTH [place] 00 EVERY Medical MORNING Branch GLIPIZIDE 2021-08 Yes [id number] 5mg TAKE 1 [facility] XL 5 mg 24 0-21 TABLET BY [facility] hr tablet 00:00: MOUTH [place] 00 DAILY WITH Medical BREAKFAST Branch amoxicillin 2021-08 Yes [id number] 500mg Take 1 [facility] 500 mg 0-21 tablet by [facility] tablet 00:00: mouth in [place] 00 the Medical morning Branch and 1 tablet in the evening. empaglifloz 2021-08 Yes [id number] 10mg Take 1 [facility] 0-21 tablet by [facility] ([place]) 00:00: mouth in [place] 10 mg 00 the Medical morning. Branch ALBUTEROL 2021-08 Yes [id number] INHALE 2 [facility] 90 0-21 PUFFS BY [facility] mcg/actuati 00:00: MOUTH [place] on inhaler 00 EVERY 6 Medica l HOURS Branch NEEDED FOR WHEEZING, SHORTNESS OF BREATH OR BRONCHOSPA SMS METFORMIN 2021-08 Yes [id number] TAKE 1 [facility] 850 mg 0-21 TABLET BY [facility] tablet 00:00: MOUTH [place] 00 THREE Medical TIMES Branch DAILY QUINAPRIL 2021-08 Yes [id number] 40mg TAKE 1 [facility] 40 mg 0-21 TABLET BY [facility] tablet 00:00: MOUTH [place] 00 EVERY Medical MORNING Branch GLIPIZIDE 2021-08 Yes [id number] 5mg TAKE 1 [facility] XL 5 mg 24 0-21 TABLET BY [facility] hr tablet 00:00: MOUTH [place] 00 DAILY WITH Medical BREAKFAST Branch amoxicillin 2021-08 Yes [id number] 500mg Take 1 [facility] 500 mg 0-21 tablet by [facility] tablet 00:00: mouth in [place] 00 the Medical morning Branch and 1 tablet in the evening. empaglifloz 2021-08 Yes [id number] 10mg Take 1 [facility] in 0-21 tablet by [facility] ([place]) 00:00: mouth in [place] 10 mg 00 the Medical morning. Branch ALBUTEROL 2021-08 Yes [id number] INHALE 2 [facility] 90 0-21 PUFFS BY [facility] mcg/actuati 00:00: MOUTH [place] on inhaler 00 EVERY 6 Medica l HOURS Branch NEEDED FOR WHEEZING, SHORTNESS OF BREATH OR BRONCHOSPA SMS METFORMIN 2021-08 Yes [id number] TAKE 1 [facility] 850 mg 0-21 TABLET BY [facility] tablet 00:00: MOUTH [place] 00 THREE Medical TIMES Branch DAILY QUINAPRIL 2021-08 Yes [id number] 40mg TAKE 1 [facility] 40 mg 0-21 TABLET BY [facility] tablet 00:00: MOUTH [place] 00 EVERY Medical MORNING Branch GLIPIZIDE 2021-08 Yes [id number] 5mg TAKE 1 [facility] XL 5 mg 24 0-21 TABLET BY [facility] hr tablet 00:00: MOUTH [place] 00 DAILY WITH Medical BREAKFAST Branch amoxicillin 2021-08 Yes [id number] 500mg Take 1 [facility] 500 mg 0-21 tablet by [facility] tablet 00:00: mouth in [place] 00 the Medical morning Branch and 1 tablet in the evening. empaglifloz 2021-08 Yes [id number] 10mg Take 1 [facility] in 0-21 tablet by [facility] ([place]) 00:00: mouth in [place] 10 mg 00 the Medical morning. Branch ALBUTEROL 2021-08 Yes [id number] INHALE 2 [facility] 90 0-21 PUFFS BY [facility] of mcg/actuati 00:00: MOUTH [place] on inhaler 00 EVERY 6 Medica l HOURS Branch NEEDED FOR WHEEZING, SHORTNESS OF BREATH OR BRONCHOSPA SMS METFORMIN 2021-08 Yes [id number] TAKE 1 [facility] 850 mg 0-21 TABLET BY [facility] tablet 00:00: MOUTH [place] 00 THREE Medical TIMES Branch DAILY QUINAPRIL 2021-08 Yes [id number] 40mg TAKE 1 [facility] 40 mg 0-21 TABLET BY [facility] tablet 00:00: MOUTH [place] 00 EVERY Medical MORNING Branch GLIPIZIDE 2021-08 Yes [id number] 5mg TAKE 1 [facility] XL 5 mg 24 0-21 TABLET BY [facility] hr tablet 00:00: MOUTH [place] 00 DAILY WITH Medical BREAKFAST Branch amoxicillin 2021-08 Yes [id number] 500mg Take 1 [facility] 500 mg 0-21 tablet by [facility] tablet 00:00: mouth in [place] 00 the Medical morning Branch and 1 tablet in the evening. empaglifloz 2021-08 Yes [id number] 10mg Take 1 [facility] in 0-21 tablet by [facility] ([place]) 00:00: mouth in [place] 10 mg 00 the Medical morning. Branch ALBUTEROL 2021-08 Yes [id number] INHALE 2 [facility] 90 0-21 PUFFS BY [facility] of mcg/actuati 00:00: MOUTH [place] on inhaler 00 EVERY 6 Medica l HOURS Branch NEEDED FOR WHEEZING, SHORTNESS OF BREATH OR BRONCHOSPA [facility] METFORMIN 2021-08 Yes [id number] TAKE 1 [facility] 850 mg 0-21 TABLET BY [facility] of tablet 00:00: MOUTH [place] 00 THREE Medical TIMES Branch DAILY QUINAPRIL 2021-08 Yes [id number] 40mg TAKE 1 [facility] 40 mg 0-21 TABLET BY [facility] of tablet 00:00: MOUTH [place] 00 EVERY Medical MORNING Branch GLIPIZIDE 2021-08 Yes [id number] 5mg TAKE 1 [facility] XL 5 mg 24 0-21 TABLET BY [facility] hr tablet 00:00: MOUTH [place] 00 DAILY WITH Medical BREAKFAST Branch amoxicillin 2021-08 Yes [id number] 500mg Take 1 [facility] 500 mg 0-21 tablet by [facility] tablet 00:00: mouth in [place] 00 the Medical morning Branch and 1 tablet in the evening. empaglifloz 2021-08 Yes [id number] 10mg Take 1 [facility] in 0-21 tablet by [facility] ([place]) 00:00: mouth in [place] 10 mg 00 the Medical morning. Branch ALBUTEROL 2021-08 Yes [id number] INHALE 2 [facility] 90 0-21 PUFFS BY [facility] of mcg/actuati 00:00: MOUTH [place] on inhaler 00 EVERY 6 Medica l HOURS Branch NEEDED FOR WHEEZING, SHORTNESS OF BREATH OR BRONCHOSPA SMS METFORMIN 2021-08 Yes [id number] TAKE 1 [facility] 850 mg 0-21 TABLET BY [facility] tablet 00:00: MOUTH [place] 00 THREE Medical TIMES Branch DAILY QUINAPRIL 2021-08 Yes [id number] 40mg TAKE 1 [facility] 40 mg 0-21 TABLET BY [facility] tablet 00:00: MOUTH [place] 00 EVERY Medical MORNING Branch GLIPIZIDE 2021-08 Yes [id number] 5mg TAKE 1 [facility] XL 5 mg 24 0-21 TABLET BY [facility] hr tablet 00:00: MOUTH [place] 00 DAILY WITH Medical BREAKFAST Branch amoxicillin 2021-08 Yes [id number] 500mg Take 1 [facility] 500 mg 0-21 tablet by [facility] of tablet 00:00: mouth in [place] 00 the Medical morning Branch and 1 tablet in the evening. empaglifloz 2021-08 Yes [id number] 10mg Take 1 [facility] in 0-21 tablet by [facility] ([place]) 00:00: mouth in [place] 10 mg 00 the Medical morning. Branch ALBUTEROL 2021-08 Yes [id number] INHALE 2 [facility] 90 0-21 PUFFS BY [facility] of mcg/actuati 00:00: MOUTH [place] on inhaler 00 EVERY 6 Medica l HOURS Branch NEEDED FOR WHEEZING, SHORTNESS OF BREATH OR BRONCHOSPA SMS METFORMIN 2021-08 Yes [id number] TAKE 1 [facility] 850 mg 0-21 TABLET BY [facility] of tablet 00:00: MOUTH [place] 00 THREE Medical TIMES Branch DAILY QUINAPRIL 2021-08 Yes [id number] 40mg TAKE 1 [facility] 40 mg 0-21 TABLET BY [facility] tablet 00:00: MOUTH [place] 00 EVERY Medical MORNING Branch GLIPIZIDE 2021-08 Yes [id number] 5mg TAKE 1 [facility] XL 5 mg 24 0-21 TABLET BY [facility] of hr tablet 00:00: MOUTH [place] 00 DAILY WITH Medical BREAKFAST Branch amoxicillin 2021-08 Yes [id number] 500mg Take 1 [facility] 500 mg 0-21 tablet by [facility] of tablet 00:00: mouth in [place] 00 the Medical morning Branch and 1 tablet in the evening. empaglifloz 2021-08 Yes [id number] 10mg Take 1 [facility] in 0-21 tablet by [facility] ([place]) 00:00: mouth in [place] 10 mg 00 the Medical morning. Branch ALBUTEROL 2021-08 Yes [id number] INHALE 2 [facility] 90 0-21 PUFFS BY [facility] of mcg/actuati 00:00: MOUTH [place] on inhaler 00 EVERY 6 Medica l HOURS Branch NEEDED FOR WHEEZING, SHORTNESS OF BREATH OR BRONCHOSPA SMS METFORMIN 2021-08 Yes [id number] TAKE 1 [facility] 850 mg 0-21 TABLET BY [facility] of tablet 00:00: MOUTH [place] THREE Medical TIMES Branch DAILY QUINAPRIL 2021-08 Yes [id number] 40mg TAKE 1 [facility] 40 mg 0-21 TABLET BY [facility] of tablet 00:00: MOUTH [place] EVERY Medical MORNING Branch GLIPIZIDE 2021-08 Yes [id number] 5mg TAKE 1 [facility] XL 5 mg 24 0-21 TABLET BY [facility] of hr tablet 00:00: MOUTH [place] 00 DAILY WITH Medical BREAKFAST Branch amoxicillin 2021-08 Yes [id number] 500mg Take 1 [facility] 500 mg 0-21 tablet by [facility] of tablet 00:00: mouth in [place] 00 the Medical morning Branch and 1 tablet in the evening. empaglifloz 2021-08 Yes [id number] 10mg Take 1 [facility] in 0-21 tablet by [facility] of ([place]) 00:00: mouth in [place] 10 mg 00 the Medical morning. Branch ALBUTEROL 2021-08 Yes [id number] INHALE 2 [facility] 90 0-21 PUFFS BY it[facility] of mcg/actuati 00:00: MOUTH [place] on inhaler 00 EVERY 6 Medica l HOURS Branch NEEDED FOR WHEEZING, SHORTNESS OF BREATH OR BRONCHOSPA SMS METFORMIN 2021-08 Yes [id number] TAKE 1 [facility] 850 mg 0-21 TABLET BY [facility] of tablet 00:00: MOUTH [place] 00 THREE Medical TIMES Branch DAILY QUINAPRIL 2021-08 Yes [id number] 40mg TAKE 1 [facility] 40 mg 0-21 TABLET BY [facility] of tablet 00:00: MOUTH [place] 00 EVERY Medical MORNING Branch GLIPIZIDE 2021-08 Yes [id number] 5mg TAKE 1 [facility] XL 5 mg 24 0-21 TABLET BY [facility] of hr tablet 00:00: MOUTH [place] 00 DAILY WITH Medical BREAKFAST Branch amoxicillin 2021-08 Yes [id number] 500mg Take 1 [facility] 500 mg 0-21 tablet by [facility] of tablet 00:00: mouth in [place] 00 the Medical morning Branch and 1 tablet in the evening. empaglifloz 2021-08 Yes [id number] 10mg Take 1 [facility] in 0-21 tablet by [facility] of ([place]) 00:00: mouth in [place] 10 mg 00 the Medical morning. Branch ALBUTEROL 2021-08 Yes [id number] INHALE 2 [facility] 90 0-21 PUFFS BY [facility] of mcg/actuati 00:00: MOUTH [place] on inhaler 00 EVERY 6 Medica l HOURS Branch NEEDED FOR WHEEZING, SHORTNESS OF BREATH OR BRONCHOSPA SMS METFORMIN 2021-08 Yes [id number] TAKE 1 [facility] 850 mg 0-21 TABLET BY [facility] of tablet 00:00: MOUTH [place] 00 THREE Medical TIMES Branch DAILY QUINAPRIL 2021-08 Yes [id number] 40mg TAKE 1 [facility] 40 mg 0-21 TABLET BY [facility] of tablet 00:00: MOUTH [place] 00 EVERY Medical MORNING Branch GLIPIZIDE 2021-08 Yes [id number] 5mg TAKE 1 [facility] XL 5 mg 24 0-21 TABLET BY [facility] of hr tablet 00:00: MOUTH [place] 00 DAILY WITH Medical BREAKFAST Branch amoxicillin 2021-08 Yes [id number] 500mg Take 1 [facility] 500 mg 0-21 tablet by [facility] of tablet 00:00: mouth in [place] 00 the Medical morning Branch and 1 tablet in the evening. empaglifloz 2021-08 Yes [id number] 10mg Take 1 [facility] in 0-21 tablet by [facility] ([place]) 00:00: mouth in [place] 10 mg 00 the Medical morning. Branch ALBUTEROL 2021-08 Yes [id number] INHALE 2 [facility] 90 0-21 PUFFS BY [facility] of mcg/actuati 00:00: MOUTH [place] on inhaler 00 EVERY 6 Medica l HOURS Branch NEEDED FOR WHEEZING, SHORTNESS OF BREATH OR BRONCHOSPA SMS METFORMIN 2021-08 Yes [id number] TAKE 1 [facility] 850 mg 0-21 TABLET BY [facility] of tablet 00:00: MOUTH [place] 00 THREE Medical TIMES Branch DAILY QUINAPRIL 2021-08 Yes [id number] 40mg TAKE 1 [facility] 40 mg 0-21 TABLET BY [facility] of tablet 00:00: MOUTH [place] 00 EVERY Medical MORNING Branch GLIPIZIDE 2021-08 Yes [id number] 5mg TAKE 1 [facility] XL 5 mg 24 0-21 TABLET BY [facility] of hr tablet 00:00: MOUTH [place] 00 DAILY WITH Medical BREAKFAST Branch amoxicillin 2021-08 Yes [id number] 500mg Take 1 [facility] 500 mg 0-21 tablet by [facility] of tablet 00:00: mouth in [place] 00 the Medical morning Branch and 1 tablet in the evening. empaglifloz 2021-08 Yes [id number] 10mg Take 1 [facility] in 0-21 tablet by [facility] ([place]) 00:00: mouth in [place] 10 mg 00 the Medical morning. Branch ALBUTEROL 2021-08 Yes [id number] INHALE 2 [facility] 90 0-21 PUFFS BY [facility] of mcg/actuati 00:00: MOUTH [place] on inhaler 00 EVERY 6 Medica l HOURS Branch NEEDED FOR WHEEZING, SHORTNESS OF BREATH OR BRONCHOSPA SMS METFORMIN 2021-08 Yes [id number] TAKE 1 [facility] 850 mg 0-21 TABLET BY [facility] of tablet 00:00: MOUTH [place] 00 THREE Medical TIMES Branch DAILY QUINAPRIL 2021-08 Yes [id number] 40mg TAKE 1 [facility] 40 mg 0-21 TABLET BY [facility] of tablet 00:00: MOUTH [place] 00 EVERY Medical MORNING Branch GLIPIZIDE 2021-08 Yes [id number] 5mg TAKE 1 [facility] XL 5 mg 24 0-21 TABLET BY [facility] of hr tablet 00:00: MOUTH [place] 00 DAILY WITH Medical BREAKFAST Branch amoxicillin 2021-08 Yes [id number] 500mg Take 1 [facility] 500 mg 0-21 tablet by [facility] of tablet 00:00: mouth in [place] 00 the Medical morning Branch and 1 tablet in the evening. empaglifloz 2021-08 Yes [id number] 10mg Take 1 [facility] in 0-21 tablet by [facility] of ([place]) 00:00: mouth in [place] 10 mg 00 the Medical morning. Branch ALBUTEROL 2021-08 Yes [id number] INHALE 2 [facility] 90 0-21 PUFFS BY [facility] of mcg/actuati 00:00: MOUTH [place] on inhaler 00 EVERY 6 Medica l HOURS Branch NEEDED FOR WHEEZING, SHORTNESS OF BREATH OR BRONCHOSPA SMS METFORMIN 2021-08 Yes [id number] TAKE 1 [facility] 850 mg 0-21 TABLET BY [facility] of tablet 00:00: MOUTH [place] 00 THREE Medical TIMES Branch DAILY GLIPIZIDE 2021-08 Yes [id number] 5mg TAKE 1 [facility] XL 5 mg 24 0-21 TABLET BY [facility] of hr tablet 00:00: MOUTH [place] 00 DAILY WITH Medical BREAKFAST Branch amoxicillin 2021-08 Yes [id number] 500mg Take 1 [facility] 500 mg 0-21 tablet by [facility] of tablet 00:00: mouth in [place] 00 the Medical morning Branch and 1 tablet in the evening. empaglifloz 2021-08 Yes [id number] 10mg Take 1 [facility] in 0-21 tablet by [facility] of ([place]) 00:00: mouth in [place] 10 mg 00 the Medical morning. Branch ALBUTEROL 2021-08 Yes [id number] INHALE 2 [facility] 90 0-21 PUFFS BY ity of mcg/actuati 00:00: MOUTH [place] on inhaler 00 EVERY 6 Medica l HOURS Branch NEEDED FOR WHEEZING, SHORTNESS OF BREATH OR BRONCHOSPA SMS METFORMIN 2021-08 Yes [id number] TAKE 1 [facility] 850 mg 0-21 TABLET BY [facility] of tablet 00:00: MOUTH [place] 00 THREE Medical TIMES Branch DAILY GLIPIZIDE 2021-08 Yes [id number] 5mg TAKE 1 [facility] XL 5 mg 24 0-21 TABLET BY [facility] of hr tablet 00:00: MOUTH [place] 00 DAILY WITH Medical BREAKFAST Branch amoxicillin 2021-08 Yes [id number] 500mg Take 1 [facility] 500 mg 0-21 tablet by [facility] of tablet 00:00: mouth in [place] 00 the Medical morning Branch and 1 tablet in the evening. empaglifloz 2021-08 Yes [id number] 10mg Take 1 [facility] in 0-21 tablet by [facility] of ([place]) 00:00: mouth in [place] 10 mg 00 the Medical morning. Branch ALBUTEROL 2021-08 Yes [id number] INHALE 2 [facility] 90 0-21 PUFFS BY it[facility] of mcg/actuati 00:00: MOUTH [place] on inhaler 00 EVERY 6 Medica l HOURS Branch NEEDED FOR WHEEZING, SHORTNESS OF BREATH OR BRONCHOSPA SMS METFORMIN 2021-08 Yes [id number] TAKE 1 [facility] 850 mg 0-21 TABLET BY [facility] of tablet 00:00: MOUTH [place] 00 THREE Medical TIMES Branch DAILY GLIPIZIDE 2021-08 Yes [id number] 5mg TAKE 1 [facility] XL 5 mg 24 0-21 TABLET BY [facility] of hr tablet 00:00: MOUTH [place] 00 DAILY WITH Medical BREAKFAST Branch amoxicillin 2021-08 Yes [id number] 500mg Take 1 [facility] 500 mg 0-21 tablet by [facility] of tablet 00:00: mouth in [place] 00 the Medical morning Branch and 1 tablet in the evening. empaglifloz 2021-08 Yes [id number] 10mg Take 1 [facility] in 0-21 tablet by [facility] of ([place]) 00:00: mouth in [place] 10 mg 00 the Medical morning. Branch ALBUTEROL 2021-08 Yes [id number] INHALE 2 [facility] 90 0-21 PUFFS BY ity of mcg/actuati 00:00: MOUTH [place] on inhaler 00 EVERY 6 Medica l HOURS Branch NEEDED FOR WHEEZING, SHORTNESS OF BREATH OR BRONCHOSPA SMS METFORMIN 2021-08 Yes [id number] TAKE 1 [facility] 850 mg 0-21 TABLET BY [facility] of tablet 00:00: MOUTH [place] 00 THREE Medical TIMES Branch DAILY GLIPIZIDE 2021-08 Yes [id number] 5mg TAKE 1 [facility] XL 5 mg 24 0-21 TABLET BY ity of hr tablet 00:00: MOUTH [place] 00 DAILY WITH Medical BREAKFAST Branch amoxicillin 2021-08 Yes [id number] 500mg Take 1 [facility] 500 mg 0-21 tablet by [facility] of tablet 00:00: mouth in [place] 00 the Medical morning Branch and 1 tablet in the evening. empaglifloz 2021-08 Yes [id number] 10mg Take 1 [facility] in 0-21 tablet by [facility] of ([place]) 00:00: mouth in [place] 10 mg 00 the Medical morning. Branch ALBUTEROL 2021-08 Yes [id number] INHALE 2 [facility] 90 0-21 PUFFS BY ity of mcg/actuati 00:00: MOUTH [place] on inhaler 00 EVERY 6 Medica l HOURS Branch NEEDED FOR WHEEZING, SHORTNESS OF BREATH OR BRONCHOSPA SMS METFORMIN 2021-08 Yes [id number] TAKE 1 [facility] 850 mg 0-21 TABLET BY [facility] of tablet 00:00: MOUTH [place] 00 THREE Medical TIMES Branch DAILY GLIPIZIDE 2021-08 Yes [id number] 5mg TAKE 1 [facility] XL 5 mg 24 0-21 TABLET BY [facility] of hr tablet 00:00: MOUTH [place] 00 DAILY WITH Medical BREAKFAST Branch amoxicillin 2021-08 Yes [id number] 500mg Take 1 [facility] 500 mg 0-21 tablet by [facility] of tablet 00:00: mouth in [place] 00 the Medical morning Branch and 1 tablet in the evening. empaglifloz 2021-08 Yes [id number] 10mg Take 1 [facility] in 0-21 tablet by [facility] of ([place]) 00:00: mouth in [place] 10 mg 00 the Medical morning. Branch ALBUTEROL 2021-08 Yes [id number] INHALE 2 [facility] 90 0-21 PUFFS BY ity of mcg/actuati 00:00: MOUTH [place] on inhaler 00 EVERY 6 Medica l HOURS Branch NEEDED FOR WHEEZING, SHORTNESS OF BREATH OR BRONCHOSPA SMS METFORMIN 2021-08 Yes [id number] TAKE 1 [facility] 850 mg 0-21 TABLET BY [facility] of tablet 00:00: MOUTH [place] THREE Medical TIMES Branch DAILY GLIPIZIDE 2021-08 Yes [id number] 5mg TAKE 1 [facility] XL 5 mg 24 0-21 TABLET BY [facility] of hr tablet 00:00: MOUTH [place] 00 DAILY WITH Medical BREAKFAST Branch amoxicillin 2021-08 Yes [id number] 500mg Take 1 [facility] 500 mg 0-21 tablet by [facility] of tablet 00:00: mouth in [place] 00 the Medical morning Branch and 1 tablet in the evening. empaglifloz 2021-08 Yes [id number] 10mg Take 1 [facility] in 0-21 tablet by [facility] of ([place]) 00:00: mouth in [place] 10 mg 00 the Medical morning. Branch ALBUTEROL 2021-08 Yes [id number] INHALE 2 [facility] 90 0-21 PUFFS BY it[facility] of mcg/actuati 00:00: MOUTH [place] on inhaler 00 EVERY 6 Medica l HOURS Branch NEEDED FOR WHEEZING, SHORTNESS OF BREATH OR BRONCHOSPA SMS METFORMIN 2021-08 Yes [id number] TAKE 1 [facility] 850 mg 0-21 TABLET BY [facility] of tablet 00:00: MOUTH [place] 00 THREE Medical TIMES Branch DAILY GLIPIZIDE 2021-08 Yes [id number] 5mg TAKE 1 [facility] XL 5 mg 24 0-21 TABLET BY [facility] of hr tablet 00:00: MOUTH [place] 00 DAILY WITH Medical BREAKFAST Branch amoxicillin 2021-08 Yes [id number] 500mg Take 1 [facility] 500 mg 0-21 tablet by [facility] of tablet 00:00: mouth in [place] 00 the Medical morning Branch and 1 tablet in the evening. empaglifloz 2021-08 Yes [id number] 10mg Take 1 [facility] in 0-21 tablet by [facility] of ([place]) 00:00: mouth in [place] 10 mg 00 the Medical morning. Branch ALBUTEROL 2021-08 Yes [id number] INHALE 2 [facility] 90 0-21 PUFFS BY ity of mcg/actuati 00:00: MOUTH [place] on inhaler 00 EVERY 6 Medica l HOURS Branch NEEDED FOR WHEEZING, SHORTNESS OF BREATH OR BRONCHOSPA SMS METFORMIN 2021-08 Yes [id number] TAKE 1 [facility] 850 mg 0-21 TABLET BY [facility] of tablet 00:00: MOUTH [place] THREE Medical TIMES Branch DAILY GLIPIZIDE 2021-08 Yes [id number] 5mg TAKE 1 [facility] XL 5 mg 24 0-21 TABLET BY [facility] of hr tablet 00:00: MOUTH [place] 00 DAILY WITH Medical BREAKFAST Branch amoxicillin 2021-08 Yes [id number] 500mg Take 1 [facility] 500 mg 0-21 tablet by [facility] of tablet 00:00: mouth in [place] 00 the Medical morning Branch and 1 tablet in the evening. empaglifloz 2021-08 Yes [id number] 10mg Take 1 [facility] in 0-21 tablet by [facility] of ([place]) 00:00: mouth in [place] 10 mg 00 the Medical morning. Branch ALBUTEROL 2021-08 Yes [id number] INHALE 2 [facility] 90 0-21 PUFFS BY ity of mcg/actuati 00:00: MOUTH [place] on inhaler 00 EVERY 6 Medica l HOURS Branch NEEDED FOR WHEEZING, SHORTNESS OF BREATH OR BRONCHOSPA SMS METFORMIN 2021-08 Yes [id number] TAKE 1 [facility] 850 mg 0-21 TABLET BY [facility] of tablet 00:00: MOUTH [place] THREE Medical TIMES Branch DAILY GLIPIZIDE 2021-08 Yes [id number] 5mg TAKE 1 [facility] XL 5 mg 24 0-21 TABLET BY [facility] of hr tablet 00:00: MOUTH [place] 00 DAILY WITH Medical BREAKFAST Branch amoxicillin 2021-08 Yes [id number] 500mg Take 1 [facility] 500 mg 0-21 tablet by [facility] of tablet 00:00: mouth in [place] 00 the Medical morning Branch and 1 tablet in the evening. empaglifloz 2021-08 Yes [id number] 10mg Take 1 [facility] in 0-21 tablet by [facility] of ([place]) 00:00: mouth in [place] 10 mg 00 the Medical morning. Branch ALBUTEROL 2021-08 Yes [id number] INHALE 2 [facility] 90 0-21 PUFFS BY ity of mcg/actuati 00:00: MOUTH [place] on inhaler 00 EVERY 6 Medica l HOURS Branch NEEDED FOR WHEEZING, SHORTNESS OF BREATH OR BRONCHOSPA SMS METFORMIN 2021-08 Yes [id number] TAKE 1 [facility] 850 mg 0-21 TABLET BY [facility] of tablet 00:00: MOUTH [place] 00 THREE Medical TIMES Branch DAILY GLIPIZIDE 2021-08 Yes [id number] 5mg TAKE 1 [facility] XL 5 mg 24 0-21 TABLET BY [facility] of hr tablet 00:00: MOUTH [place] 00 DAILY WITH Medical BREAKFAST Branch amoxicillin 2021-08 Yes [id number] 500mg Take 1 [facility] 500 mg 0-21 tablet by [facility] of tablet 00:00: mouth in [place] 00 the Medical morning Branch and 1 tablet in the evening. empaglifloz 2021-08 Yes [id number] 10mg Take 1 [facility] in 0-21 tablet by [facility] of ([place]) 00:00: mouth in [place] 10 mg 00 the Medical morning. Branch ALBUTEROL 2021-08 Yes [id number] INHALE 2 [facility] 90 0-21 PUFFS BY ity of mcg/actuati 00:00: MOUTH [place] on inhaler 00 EVERY 6 Medica l HOURS Branch NEEDED FOR WHEEZING, SHORTNESS OF BREATH OR BRONCHOSPA SMS METFORMIN 2021-08 Yes [id number] TAKE 1 [facility] 850 mg 0-21 TABLET BY [facility] of tablet 00:00: MOUTH [place] 00 THREE Medical TIMES Branch DAILY GLIPIZIDE 2021-08 Yes [id number] 5mg TAKE 1 [facility] XL 5 mg 24 0-21 TABLET BY [facility] of hr tablet 00:00: MOUTH [place] 00 DAILY WITH Medical BREAKFAST Branch amoxicillin 2021-08 Yes [id number] 500mg Take 1 [facility] 500 mg 0-21 tablet by [facility] of tablet 00:00: mouth in [place] 00 the Medical morning Branch and 1 tablet in the evening. empaglifloz 2021-08 Yes [id number] 10mg Take 1 [facility] in 0-21 tablet by [facility] of ([place]) 00:00: mouth in [place] 10 mg 00 the Medical morning. Branch ALBUTEROL 2021-08 Yes [id number] INHALE 2 [facility] 90 0-21 PUFFS BY [facility]y of mcg/actuati 00:00: MOUTH [place] on inhaler 00 EVERY 6 Medica l HOURS Branch NEEDED FOR WHEEZING, SHORTNESS OF BREATH OR BRONCHOSPA SMS METFORMIN 2021-08 Yes [id number] TAKE 1 [facility] 850 mg 0-21 TABLET BY [facility] of tablet 00:00: MOUTH [place] 00 THREE Medical TIMES Branch DAILY GLIPIZIDE 2021-08 Yes [id number] 5mg TAKE 1 [facility] XL 5 mg 24 0-21 TABLET BY [facility] of hr tablet 00:00: MOUTH [place] 00 DAILY WITH Medical BREAKFAST Branch amoxicillin 2021-08 Yes [id number] 500mg Take 1 [facility] 500 mg 0-21 tablet by [facility] of tablet 00:00: mouth in [place] 00 the Medical morning Branch and 1 tablet in the evening. empaglifloz 2021-08 Yes [id number] 10mg Take 1 [facility] in 0-21 tablet by [facility] of ([place]) 00:00: mouth in [place] 10 mg 00 the Medical morning. Branch ALBUTEROL 2021-08 Yes [id number] INHALE 2 [facility] 90 0-21 PUFFS BY [facility] of mcg/actuati 00:00: MOUTH [place] on inhaler 00 EVERY 6 Medica l HOURS Branch NEEDED FOR WHEEZING, SHORTNESS OF BREATH OR BRONCHOSPA SMS METFORMIN 2021-08 Yes [id number] TAKE 1 [facility] 850 mg 0-21 TABLET BY [facility] of tablet 00:00: MOUTH [place] 00 THREE Medical TIMES Branch DAILY GLIPIZIDE 2021-08 Yes [id number] 5mg TAKE 1 [facility] XL 5 mg 24 0-21 TABLET BY [facility] of hr tablet 00:00: MOUTH [place] 00 DAILY WITH Medical BREAKFAST Branch amoxicillin 2021-08 Yes [id number] 500mg Take 1 [facility] 500 mg 0-21 tablet by [facility] of tablet 00:00: mouth in [place] 00 the Medical morning Branch and 1 tablet in the evening. empaglifloz 2021-08 Yes [id number] 10mg Take 1 [facility] in 0-21 tablet by [facility] of ([place]) 00:00: mouth in [place] 10 mg 00 the Medical morning. Branch ALBUTEROL 2021-08 Yes [id number] INHALE 2 [facility] 90 0-21 PUFFS BY ity of mcg/actuati 00:00: MOUTH [place] on inhaler 00 EVERY 6 Medica l HOURS Branch NEEDED FOR WHEEZING, SHORTNESS OF BREATH OR BRONCHOSPA SMS METFORMIN 2021-08 Yes [id number] TAKE 1 [facility] 850 mg 0-21 TABLET BY [facility] of tablet 00:00: MOUTH [place] 00 THREE Medical TIMES Branch DAILY GLIPIZIDE 2021-08 Yes [id number] 5mg TAKE 1 [facility] XL 5 mg 24 0-21 TABLET BY [facility] of hr tablet 00:00: MOUTH [place] 00 DAILY WITH Medical BREAKFAST Branch amoxicillin 2021-08 Yes [id number] 500mg Take 1 [facility] 500 mg 0-21 tablet by [facility] of tablet 00:00: mouth in [place] 00 the Medical morning Branch and 1 tablet in the evening. empaglifloz 2021-08 Yes [id number] 10mg Take 1 [facility]21 tablet by [facility] ([place]) 00:00: mouth in [place] 10 mg 00 the Medical morning. Branch ALBUTEROL 2021-08 Yes [id number] INHALE 2 [facility] 90 0-21 PUFFS BY [facility] mcg/actuati 00:00: MOUTH [place] on inhaler 00 EVERY 6 Medica l HOURS Branch NEEDED FOR WHEEZING, SHORTNESS OF BREATH OR BRONCHOSPA SMS METFORMIN 2021-08 Yes [id number] TAKE 1 [facility] 850 mg 0-21 TABLET BY [facility] tablet 00:00: MOUTH [place] 00 THREE Medical TIMES Branch DAILY GLIPIZIDE 2021-08 Yes [id number] 5mg TAKE 1 [facility] XL 5 mg 24 0-21 TABLET BY [facility] hr tablet 00:00: MOUTH [place] 00 DAILY WITH Medical BREAKFAST Branch amoxicillin 2021-08 Yes [id number] 500mg Take 1 [facility] 500 mg 0-21 tablet by [facility] tablet 00:00: mouth in [place] 00 the Medical morning Branch and 1 tablet in the evening. empaglifloz 2021-08 Yes [id number] 10mg Take 1 [facility] in 0-21 tablet by [facility] ([place]) 00:00: mouth in [place] 10 mg 00 the Medical morning. Branch ALBUTEROL 2021-08 Yes [id number] INHALE 2 [facility] 90 0-21 PUFFS BY [facility] mcg/actuati 00:00: MOUTH [place] on inhaler 00 EVERY 6 Medica l HOURS Branch NEEDED FOR WHEEZING, SHORTNESS OF BREATH OR BRONCHOSPA SMS METFORMIN 2021-08 Yes [id number] TAKE 1 [facility] 850 mg 0-21 TABLET BY [facility] tablet 00:00: MOUTH [place] 00 THREE Medical TIMES Branch DAILY GLIPIZIDE 2021-08 Yes [id number] 5mg TAKE 1 [facility] XL 5 mg 24 0-21 TABLET BY [facility] hr tablet 00:00: MOUTH [place] 00 DAILY WITH Medical BREAKFAST Branch amoxicillin 2021-08 Yes [id number] 500mg Take 1 [facility] 500 mg 0-21 tablet by [facility] tablet 00:00: mouth in [place] 00 the Medical morning Branch and 1 tablet in the evening. empaglifloz 2021-08 Yes [id number] 10mg Take 1 [facility] in 0-21 tablet by [facility] ([place]) 00:00: mouth in [place] 10 mg 00 the Medical morning. Branch ALBUTEROL 2021-08 Yes [id number] INHALE 2 [facility] 90 0-21 PUFFS BY [facility] of mcg/actuati 00:00: MOUTH [place] on inhaler 00 EVERY 6 Medica l HOURS Branch NEEDED FOR WHEEZING, SHORTNESS OF BREATH OR BRONCHOSPA SMS METFORMIN 2021-08 Yes [id number] TAKE 1 [facility] 850 mg 0-21 TABLET BY [facility] tablet 00:00: MOUTH [place] 00 THREE Medical TIMES Branch DAILY GLIPIZIDE 2021-08 Yes [id number] 5mg TAKE 1 [facility] XL 5 mg 24 0-21 TABLET BY [facility] hr tablet 00:00: MOUTH [place] 00 DAILY WITH Medical BREAKFAST Branch amoxicillin 2021-08 Yes [id number] 500mg Take 1 [facility] 500 mg 0-21 tablet by [facility] tablet 00:00: mouth in [place] 00 the Medical morning Branch and 1 tablet in the evening. empaglifloz 2021-08 Yes [id number] 10mg Take 1 [facility] in 0-21 tablet by [facility] ([place]) 00:00: mouth in [place] 10 mg 00 the Medical morning. Branch ALBUTEROL 2021-08 Yes [id number] INHALE 2 [facility] 90 0-21 PUFFS BY [facility] of mcg/actuati 00:00: MOUTH [place] on inhaler 00 EVERY 6 Medica l HOURS Branch NEEDED FOR WHEEZING, SHORTNESS OF BREATH OR BRONCHOSPA SMS METFORMIN 2021-08 Yes [id number] TAKE 1 [facility] 850 mg 0-21 TABLET BY [facility] tablet 00:00: MOUTH [place] 00 THREE Medical TIMES Branch DAILY GLIPIZIDE 2021-08 Yes [id number] 5mg TAKE 1 [facility] XL 5 mg 24 0-21 TABLET BY [facility] hr tablet 00:00: MOUTH [place] 00 DAILY WITH Medical BREAKFAST Branch amoxicillin 2021-08 Yes [id number] 500mg Take 1 [facility] 500 mg 0-21 tablet by [facility] tablet 00:00: mouth in [place] 00 the Medical morning Branch and 1 tablet in the evening. empaglifloz 2021-08 Yes [id number] 10mg Take 1 [facility] in 0-21 tablet by [facility] ([place]) 00:00: mouth in [place] 10 mg 00 the Medical morning. Branch ALBUTEROL 2021-08 Yes [id number] INHALE 2 [facility] 90 0-21 PUFFS BY [facility] of mcg/actuati 00:00: MOUTH [place] on inhaler 00 EVERY 6 Medica l HOURS Branch NEEDED FOR WHEEZING, SHORTNESS OF BREATH OR BRONCHOSPA SMS METFORMIN 2021-08 Yes [id number] TAKE 1 [facility] 850 mg 0-21 TABLET BY [facility] tablet 00:00: MOUTH [place] 00 THREE Medical TIMES Branch DAILY GLIPIZIDE 2021-08 Yes [id number] 5mg TAKE 1 [facility] XL 5 mg 24 0-21 TABLET BY [facility] hr tablet 00:00: MOUTH [place] 00 DAILY WITH Medical BREAKFAST Branch amoxicillin 2021-08 Yes [id number] 500mg Take 1 [facility] 500 mg 0-21 tablet by [facility] tablet 00:00: mouth in [place] 00 the Medical morning Branch and 1 tablet in the evening. empaglifloz 2021-08 Yes [id number] 10mg Take 1 [facility] in 0-21 tablet by [facility] ([place]) 00:00: mouth in [place] 10 mg 00 the Medical morning. Branch ALBUTEROL 2021-08 Yes [id number] INHALE 2 [facility] 90 0-21 PUFFS BY [facility] of mcg/actuati 00:00: MOUTH [place] on inhaler 00 EVERY 6 Medica l HOURS Branch NEEDED FOR WHEEZING, SHORTNESS OF BREATH OR BRONCHOSPA SMS METFORMIN 2021-08 Yes [id number] TAKE 1 [facility] 850 mg 0-21 TABLET BY [facility] tablet 00:00: MOUTH [place] 00 THREE Medical TIMES Branch DAILY GLIPIZIDE 2021-08 Yes [id number] 5mg TAKE 1 [facility] XL 5 mg 24 0-21 TABLET BY [facility] hr tablet 00:00: MOUTH [place] 00 DAILY WITH Medical BREAKFAST Branch amoxicillin 2021-08 Yes [id number] 500mg Take 1 [facility] 500 mg 0-21 tablet by [facility] tablet 00:00: mouth in [place] the Medical morning Branch and 1 tablet in the evening. empaglifloz 2021-08 Yes [id number] 10mg Take 1 [facility] in 0-21 tablet by [facility] ([place]) 00:00: mouth in [place] 10 mg 00 the Medical morning. Branch ALBUTEROL 2021-08 Yes [id number] INHALE 2 [facility] 90 0-21 PUFFS BY [facility] of mcg/actuati 00:00: MOUTH [place] on inhaler 00 EVERY 6 Medica l HOURS Branch NEEDED FOR WHEEZING, SHORTNESS OF BREATH OR BRONCHOSPA SMS METFORMIN 2021-08 Yes [id number] TAKE 1 [facility] 850 mg 0-21 TABLET BY [facility] tablet 00:00: MOUTH [place] THREE Medical TIMES Branch DAILY GLIPIZIDE 2021-08 Yes [id number] 5mg TAKE 1 [facility] XL 5 mg 24 0-21 TABLET BY [facility] of hr tablet 00:00: MOUTH [place] 00 DAILY WITH Medical BREAKFAST Branch amoxicillin 2021-08 Yes [id number] 500mg Take 1 [facility] 500 mg 0-21 tablet by [facility] tablet 00:00: mouth in [place] the Medical morning Branch and 1 tablet in the evening. empaglifloz 2021-08 Yes [id number] 10mg Take 1 [facility] in 0-21 tablet by [facility] ([place]) 00:00: mouth in [place] 10 mg 00 the Medical morning. Branch ALBUTEROL 2021-08 Yes [id number] INHALE 2 [facility] 90 0-21 PUFFS BY [facility] of mcg/actuati 00:00: MOUTH [place] on inhaler 00 EVERY 6 Medica l HOURS Branch NEEDED FOR WHEEZING, SHORTNESS OF BREATH OR BRONCHOSPA SMS METFORMIN 2021-08 Yes [id number] TAKE 1 [facility] 850 mg 0-21 TABLET BY [facility] of tablet 00:00: MOUTH [place] 00 THREE Medical TIMES Branch DAILY GLIPIZIDE 2021-08 Yes [id number] 5mg TAKE 1 [facility] XL 5 mg 24 0-21 TABLET BY [facility] hr tablet 00:00: MOUTH [place] 00 DAILY WITH Medical BREAKFAST Branch amoxicillin 2021-08 Yes [id number] 500mg Take 1 [facility] 500 mg 0-21 tablet by [facility] of tablet 00:00: mouth in [place] 00 the Medical morning Branch and 1 tablet in the evening. empaglifloz 2021-08 Yes [id number] 10mg Take 1 [facility] in 0-21 tablet by [facility] ([place]) 00:00: mouth in [place] 10 mg 00 the Medical morning. Branch ALBUTEROL 2021-08 Yes [id number] INHALE 2 [facility] 90 0-21 PUFFS BY [facility] of mcg/actuati 00:00: MOUTH [place] on inhaler 00 EVERY 6 Medica l HOURS Branch NEEDED FOR WHEEZING, SHORTNESS OF BREATH OR BRONCHOSPA SMS METFORMIN 2021-08 Yes [id number] TAKE 1 [facility] 850 mg 0-21 TABLET BY [facility] of tablet 00:00: MOUTH [place] 00 THREE Medical TIMES Branch DAILY GLIPIZIDE 2021-08 Yes [id number] 5mg TAKE 1 [facility] XL 5 mg 24 0-21 TABLET BY [facility] of hr tablet 00:00: MOUTH [place] 00 DAILY WITH Medical BREAKFAST Branch amoxicillin 2021-08 Yes [id number] 500mg Take 1 [facility] 500 mg 0-21 tablet by [facility] of tablet 00:00: mouth in [place] 00 the Medical morning Branch and 1 tablet in the evening. empaglifloz 2021-08 Yes [id number] 10mg Take 1 [facility] in 0-21 tablet by [facility] ([place]) 00:00: mouth in [place] 10 mg 00 the Medical morning. Branch ALBUTEROL 2021-08 Yes [id number] INHALE 2 [facility] 90 0-21 PUFFS BY [facility] of mcg/actuati 00:00: MOUTH [place] on inhaler 00 EVERY 6 Medica l HOURS Branch NEEDED FOR WHEEZING, SHORTNESS OF BREATH OR BRONCHOSPA SMS METFORMIN 2021-08 Yes [id number] TAKE 1 [facility] 850 mg 0-21 TABLET BY [facility] of tablet 00:00: MOUTH [place] 00 THREE Medical TIMES Branch DAILY GLIPIZIDE 2021-08 Yes [id number] 5mg TAKE 1 [facility] XL 5 mg 24 0-21 TABLET BY [facility] of hr tablet 00:00: MOUTH [place] 00 DAILY WITH Medical BREAKFAST Branch amoxicillin 2021-08 Yes [id number] 500mg Take 1 [facility] 500 mg 0-21 tablet by [facility] of tablet 00:00: mouth in [place] 00 the Medical morning Branch and 1 tablet in the evening. empaglifloz 2021-08 Yes [id number] 10mg Take 1 [facility] in 0-21 tablet by [facility] ([place]) 00:00: mouth in [place] 10 mg 00 the Medical morning. Branch ALBUTEROL 2021-08 Yes [id number] INHALE 2 [facility] 90 0-21 PUFFS BY [facility] of mcg/actuati 00:00: MOUTH [place] on inhaler 00 EVERY 6 Medica l HOURS Branch NEEDED FOR WHEEZING, SHORTNESS OF BREATH OR BRONCHOSPA SMS METFORMIN 2021-08 Yes [id number] TAKE 1 [facility] 850 mg 0-21 TABLET BY [facility] of tablet 00:00: MOUTH [place] 00 THREE Medical TIMES Branch DAILY GLIPIZIDE 2021-08 Yes [id number] 5mg TAKE 1 [facility] XL 5 mg 24 0-21 TABLET BY [facility] of hr tablet 00:00: MOUTH [place] 00 DAILY WITH Medical BREAKFAST Branch amoxicillin 2021-08 Yes [id number] 500mg Take 1 [facility] 500 mg 0-21 tablet by [facility] of tablet 00:00: mouth in [place] 00 the Medical morning Branch and 1 tablet in the evening. empaglifloz 2021-08 Yes [id number] 10mg Take 1 [facility] in 0-21 tablet by [facility] ([place]) 00:00: mouth in [place] 10 mg 00 the Medical morning. Branch ALBUTEROL 2021-08 Yes [id number] INHALE 2 [facility] 90 0-21 PUFFS BY [facility] of mcg/actuati 00:00: MOUTH [place] on inhaler 00 EVERY 6 Medica l HOURS Branch NEEDED FOR WHEEZING, SHORTNESS OF BREATH OR BRONCHOSPA SMS METFORMIN 2021-08 Yes [id number] TAKE 1 [facility] 850 mg 0-21 TABLET BY [facility] of tablet 00:00: MOUTH [place] 00 THREE Medical TIMES Branch DAILY GLIPIZIDE 2021-08 Yes [id number] 5mg TAKE 1 [facility] XL 5 mg 24 0-21 TABLET BY [facility] of hr tablet 00:00: MOUTH [place] 00 DAILY WITH Medical BREAKFAST Branch amoxicillin 2021-08 Yes [id number] 500mg Take 1 [facility] 500 mg 0-21 tablet by [facility] of tablet 00:00: mouth in [place] 00 the Medical morning Branch and 1 tablet in the evening. empaglifloz 2021-08 Yes [id number] 10mg Take 1 [facility] in 0-21 tablet by [facility] ([place]) 00:00: mouth in [place] 10 mg 00 the Medical morning. Branch ALBUTEROL 2021-08 Yes [id number] INHALE 2 [facility] 90 0-21 PUFFS BY [facility] of mcg/actuati 00:00: MOUTH [place] on inhaler 00 EVERY 6 Medica l HOURS Branch NEEDED FOR WHEEZING, SHORTNESS OF BREATH OR BRONCHOSPA SMS METFORMIN 2021-08 Yes [id number] TAKE 1 [facility] 850 mg 0-21 TABLET BY [facility] of tablet 00:00: MOUTH [place] 00 THREE Medical TIMES Branch DAILY GLIPIZIDE 2021-08 Yes [id number] 5mg TAKE 1 [facility] XL 5 mg 24 0-21 TABLET BY [facility] of hr tablet 00:00: MOUTH [place] 00 DAILY WITH Medical BREAKFAST Branch amoxicillin 2021-08 Yes [id number] 500mg Take 1 [facility] 500 mg 0-21 tablet by [facility] of tablet 00:00: mouth in [place] 00 the Medical morning Branch and 1 tablet in the evening. empaglifloz 2021-08 Yes [id number] 10mg Take 1 [facility] in 0-21 tablet by [facility] ([place]) 00:00: mouth in [place] 10 mg 00 the Medical morning. Branch ALBUTEROL 2021-08 Yes [id number] INHALE 2 [facility] 90 0-21 PUFFS BY [facility] of mcg/actuati 00:00: MOUTH [place] on inhaler 00 EVERY 6 Medica l HOURS Branch NEEDED FOR WHEEZING, SHORTNESS OF BREATH OR BRONCHOSPA SMS METFORMIN 2021-08 Yes [id number] TAKE 1 [facility] 850 mg 0-21 TABLET BY [facility] of tablet 00:00: MOUTH [place] 00 THREE Medical TIMES Branch DAILY GLIPIZIDE 2021-08 Yes [id number] 5mg TAKE 1 [facility] XL 5 mg 24 0-21 TABLET BY [facility] of hr tablet 00:00: MOUTH [place] 00 DAILY WITH Medical BREAKFAST Branch amoxicillin 2021-08 Yes [id number] 500mg Take 1 [facility] 500 mg 0-21 tablet by [facility] of tablet 00:00: mouth in [place] 00 the Medical morning Branch and 1 tablet in the evening. empaglifloz 2021-08 Yes [id number] 10mg Take 1 [facility] in 0-21 tablet by [facility] ([place]) 00:00: mouth in [place] 10 mg 00 the Medical morning. Branch ALBUTEROL 2021-08 Yes [id number] INHALE 2 [facility] 90 0-21 PUFFS BY [facility] of mcg/actuati 00:00: MOUTH [place] on inhaler 00 EVERY 6 Medica l HOURS Branch NEEDED FOR WHEEZING, SHORTNESS OF BREATH OR BRONCHOSPA SMS METFORMIN 2021-08 Yes [id number] TAKE 1 [facility] 850 mg 0-21 TABLET BY [facility] of tablet 00:00: MOUTH [place] THREE Medical TIMES Branch DAILY GLIPIZIDE 2021-08 Yes [id number] 5mg TAKE 1 [facility] XL 5 mg 24 0-21 TABLET BY [facility] of hr tablet 00:00: MOUTH [place] 00 DAILY WITH Medical BREAKFAST Branch amoxicillin 2021-08 Yes [id number] 500mg Take 1 [facility] 500 mg 0-21 tablet by [facility] of tablet 00:00: mouth in [place] 00 the Medical morning Branch and 1 tablet in the evening. empaglifloz 2021-08 Yes [id number] 10mg Take 1 [facility] in 0-21 tablet by [facility] ([place]) 00:00: mouth in [place] 10 mg 00 the Medical morning. Branch ALBUTEROL 2021-08 Yes [id number] INHALE 2 [facility] 90 0-21 PUFFS BY [facility] of mcg/actuati 00:00: MOUTH [place] on inhaler 00 EVERY 6 Medica l HOURS Branch NEEDED FOR WHEEZING, SHORTNESS OF BREATH OR BRONCHOSPA SMS METFORMIN 2021-08 Yes [id number] TAKE 1 [facility] 850 mg 0-21 TABLET BY [facility] of tablet 00:00: MOUTH [place] THREE Medical TIMES Branch DAILY GLIPIZIDE 2021-08 Yes [id number] 5mg TAKE 1 [facility] XL 5 mg 24 0-21 TABLET BY [facility] of hr tablet 00:00: MOUTH [place] 00 DAILY WITH Medical BREAKFAST Branch amoxicillin 2021-08 Yes [id number] 500mg Take 1 [facility] 500 mg 0-21 tablet by [facility] of tablet 00:00: mouth in [place] 00 the Medical morning Branch and 1 tablet in the evening. empaglifloz 2021-08 Yes [id number] 10mg Take 1 [facility] in 0-21 tablet by [facility] ([place]) 00:00: mouth in [place] 10 mg 00 the Medical morning. Branch ALBUTEROL 2021-08 Yes [id number] INHALE 2 [facility] 90 0-21 PUFFS BY [facility] of mcg/actuati 00:00: MOUTH [place] on inhaler 00 EVERY 6 Medica l HOURS Branch NEEDED FOR WHEEZING, SHORTNESS OF BREATH OR BRONCHOSPA SMS METFORMIN 2021-08 Yes [id number] TAKE 1 [facility] 850 mg 0-21 TABLET BY [facility] of tablet 00:00: MOUTH [place] THREE Medical TIMES Branch DAILY GLIPIZIDE 2021-08 Yes [id number] 5mg TAKE 1 [facility] XL 5 mg 24 0-21 TABLET BY [facility] of hr tablet 00:00: MOUTH [place] 00 DAILY WITH Medical BREAKFAST Branch amoxicillin 2021-08 Yes [id number] 500mg Take 1 [facility] 500 mg 0-21 tablet by [facility] of tablet 00:00: mouth in [place] 00 the Medical morning Branch and 1 tablet in the evening. empaglifloz 2021-08 Yes [id number] 10mg Take 1 [facility] in 0-21 tablet by [facility] ([place]) 00:00: mouth in [place] 10 mg 00 the Medical morning. Branch ALBUTEROL 2021-08 Yes [id number] INHALE 2 [facility] 90 0-21 PUFFS BY [facility] of mcg/actuati 00:00: MOUTH [place] on inhaler 00 EVERY 6 Medica l HOURS Branch NEEDED FOR WHEEZING, SHORTNESS OF BREATH OR BRONCHOSPA SMS METFORMIN 2021-08 Yes [id number] TAKE 1 [facility] 850 mg 0-21 TABLET BY [facility] of tablet 00:00: MOUTH [place] 00 THREE Medical TIMES Branch DAILY GLIPIZIDE 2021-08 Yes [id number] 5mg TAKE 1 [facility] XL 5 mg 24 0-21 TABLET BY [facility] of hr tablet 00:00: MOUTH [place] 00 DAILY WITH Medical BREAKFAST Branch amoxicillin 2021-08 Yes [id number] 500mg Take 1 [facility] 500 mg 0-21 tablet by [facility] of tablet 00:00: mouth in [place] 00 the Medical morning Branch and 1 tablet in the evening. empaglifloz 2021-08 Yes [id number] 10mg Take 1 [facility] in 0-21 tablet by [facility] ([place]) 00:00: mouth in [place] 10 mg 00 the Medical morning. Branch QUINAPRIL 2021-08- No [id number] 40mg TAKE 1 [facility] 40 mg 0-21 12-07 TABLET BY [facility] of tablet 00:00: 00:00 MOUTH [place] 00 :00 EVERY Medical MORNING Branch QUINAPRIL 2021-08- No [id number] 40mg TAKE 1 [facility] nivers 40 mg [...] Indication s: chronic pain gabapentin 2021-0 Yes [id number] TAKE 1 [facility] 300 mg 9-27 CAPSULE BY [facility] capsule 00:00: MOUTH [place] 00 TIMES Medical DAILY Branch gabapentin 2021-0 Yes [id number] TAKE 1 [facility] 300 mg 9-27 CAPSULE BY [facility] of capsule 00:00: MOUTH [place] 00 TIMES Medical DAILY Branch gabapentin 2-0 Yes [id number] TAKE 1 [facility] 300 mg 9-27 CAPSULE BY [facility] of capsule 00:00: MOUTH [place] 00 TIMES Medical DAILY Branch gabapentin 2-0 Yes [id number] TAKE 1 [facility] 300 mg 9-27 CAPSULE BY [facility] of capsule 00:00: MOUTH [place] 00 TIMES Medical DAILY Branch gabapentin 2-0 Yes [id number] TAKE 1 [facility] 300 mg 9-27 CAPSULE BY [facility] of capsule 00:00: MOUTH [place] 00 TIMES Medical DAILY Branch gabapentin 2-0 Yes [id number] TAKE 1 [facility] 300 mg 9-27 CAPSULE BY [facility] of capsule 00:00: MOUTH [place] 00 TIMES Medical DAILY Branch gabapentin 2022-0 Yes [id number] TAKE 1 [facility] 300 mg 9-27 CAPSULE BY [facility] of capsule 00:00: MOUTH [place] 00 TIMES Medical DAILY Branch gabapentin 2022-0 Yes [id number] TAKE 1 [facility] 300 mg 9-27 CAPSULE BY [facility] of capsule 00:00: MOUTH [place] 00 TIMES Medical DAILY Branch gabapentin 2022-0 Yes [id number] TAKE 1 [facility] 300 mg 9-27 CAPSULE BY [facility] of capsule 00:00: MOUTH [place] 00 TIMES Medical DAILY Branch gabapentin 2022-0 Yes [id number] TAKE 1 [facility] 300 mg 9-27 CAPSULE BY [facility] of capsule 00:00: MOUTH [place] 00 TIMES Medical DAILY Branch gabapentin 2022-0 Yes [id number] TAKE 1 [facility] 300 mg 9-27 CAPSULE BY [facility] of capsule 00:00: MOUTH [place] 00 TIMES Medical DAILY Branch gabapentin 2022-0 Yes [id number] TAKE 1 [facility] 300 mg 9-27 CAPSULE BY [facility] of capsule 00:00: MOUTH [place] 00 TIMES Medical DAILY Branch gabapentin 2022-0 Yes [id number] TAKE 1 [facility] 300 mg 9-27 CAPSULE BY it[facility] of capsule 00:00: MOUTH [place] 00 TIMES Medical DAILY Branch gabapentin 2022-0 Yes [id number] TAKE 1 [facility] 300 mg 9-27 CAPSULE BY [facility] of capsule 00:00: MOUTH [place] 00 TIMES Medical DAILY Branch gabapentin 2022-0 Yes [id number] TAKE 1 [facility] 300 mg 9-27 CAPSULE BY [facility] of capsule 00:00: MOUTH [place] 00 TIMES Medical DAILY Branch gabapentin 2022-0 Yes [id number] TAKE 1 [facility] 300 mg 9-27 CAPSULE BY [facility] of capsule 00:00: MOUTH [place] 00 TIMES Medical DAILY Branch gabapentin 2022-0 Yes [id number] TAKE 1 [facility] 300 mg 9-27 CAPSULE BY [facility] of capsule 00:00: MOUTH [place] 00 TIMES Medical DAILY Branch gabapentin 2022-0 Yes [id number] TAKE 1 [facility] 300 mg 9-27 CAPSULE BY [facility] of capsule 00:00: MOUTH [place] 00 TIMES Medical DAILY Branch gabapentin 2022-0 Yes [id number] TAKE 1 [facility] 300 mg 9-27 CAPSULE BY [facility] of capsule 00:00: MOUTH [place] 00 TIMES Medical DAILY Branch gabapentin 2022-0 Yes [id number] TAKE 1 [facility] 300 mg 9-27 CAPSULE BY [facility] of capsule 00:00: MOUTH [place] 00 TIMES Medical DAILY Branch gabapentin 2022-0 Yes [id number] TAKE 1 [facility] 300 mg 9-27 CAPSULE BY [facility] of capsule 00:00: MOUTH [place] 00 TIMES Medical DAILY Branch gabapentin 2022-0 Yes [id number] TAKE 1 [facility] 300 mg 9-27 CAPSULE BY [facility] of capsule 00:00: MOUTH [place] 00 TIMES Medical DAILY Branch gabapentin 2022-0 Yes [id number] TAKE 1 [facility] 300 mg 9-27 CAPSULE BY [facility] of capsule 00:00: MOUTH [place] 00 TIMES Medical DAILY Branch gabapentin 2022-0 Yes [id number] TAKE 1 [facility] 300 mg 9-27 CAPSULE BY it[facility] of capsule 00:00: MOUTH [place] 00 TIMES Medical DAILY Branch gabapentin 2022-0 Yes [id number] TAKE 1 [facility] 300 mg 9-27 CAPSULE BY ity of capsule 00:00: MOUTH [place] 00 TIMES Medical DAILY Branch gabapentin 2022-0 Yes [id number] TAKE 1 [facility] 300 mg 9-27 CAPSULE BY it[facility] of capsule 00:00: MOUTH [place] 00 TIMES Medical DAILY Branch gabapentin 2022-0 Yes [id number] TAKE 1 [facility] 300 mg 9-27 CAPSULE BY it[facility] of capsule 00:00: MOUTH [place] 00 TIMES Medical DAILY Branch gabapentin 2022-0 Yes [id number] TAKE 1 [facility] 300 mg 9-27 CAPSULE BY ity of capsule 00:00: MOUTH FOUR [place] 00 TIMES Medical DAILY Branch gabapentin 2022-0 Yes [id number] TAKE 1 [facility] 300 mg 9-27 CAPSULE BY [facility] of capsule 00:00: MOUTH FOUR [place] 00 TIMES Medical DAILY Branch gabapentin 2022-0 Yes [id number] TAKE 1 [facility] 300 mg 9-27 CAPSULE BY [facility] of capsule 00:00: MOUTH FOUR [place] 00 TIMES Medical DAILY Branch gabapentin 2022-0 Yes [id number] TAKE 1 [facility] 300 mg 9-27 CAPSULE BY [facility] of capsule 00:00: MOUTH FOUR [place] 00 TIMES Medical DAILY Branch gabapentin 2022-0 Yes [id number] TAKE 1 [facility] 300 mg 9-27 CAPSULE BY [facility] of capsule 00:00: MOUTH FOUR [place] 00 TIMES Medical DAILY Branch gabapentin 2022-0 Yes [id number] TAKE 1 [facility] 300 mg 9-27 CAPSULE BY [facility] of capsule 00:00: MOUTH FOUR [place] 00 TIMES Medical DAILY Branch gabapentin 2022-0 Yes [id number] TAKE 1 [facility] 300 mg 9-27 CAPSULE BY it[facility] of capsule 00:00: MOUTH FOUR [place] 00 TIMES Medical DAILY Branch gabapentin 2022-0 Yes [id number] TAKE 1 [facility] 300 mg 9-27 CAPSULE BY ity of capsule 00:00: MOUTH FOUR [place] 00 TIMES Medical DAILY Branch gabapentin 2022-0 Yes [id number] TAKE 1 [facility] 300 mg 9-27 CAPSULE BY it[facility] of capsule 00:00: MOUTH FOUR [place] 00 TIMES Medical DAILY Branch gabapentin 2022-0 Yes [id number] TAKE 1 [facility] 300 mg 9-27 CAPSULE BY ity of capsule 00:00: MOUTH FOUR [place] 00 TIMES Medical DAILY Branch gabapentin 2022-0 Yes [id number] TAKE 1 [facility] 300 mg 9-27 CAPSULE BY it[facility] of capsule 00:00: MOUTH FOUR [place] 00 TIMES Medical DAILY Branch gabapentin 2022-0 Yes [id number] TAKE 1 [facility] 300 mg 9-27 CAPSULE BY ity of capsule 00:00: MOUTH FOUR [place] 00 TIMES Medical DAILY Branch gabapentin 2022-0 Yes [id number] TAKE 1 [facility] 300 mg 9-27 CAPSULE BY ity of capsule 00:00: MOUTH FOUR [place] 00 TIMES Medical DAILY Branch gabapentin 2022-0 Yes [id number] TAKE 1 [facility] 300 mg 9-27 CAPSULE BY ity of capsule 00:00: MOUTH FOUR [place] 00 TIMES Medical DAILY Branch gabapentin 2022-0 Yes [id number] TAKE 1 [facility] 300 mg 9-27 CAPSULE BY it[facility] of capsule 00:00: MOUTH FOUR [place] 00 TIMES Medical DAILY Branch gabapentin 2022-0 Yes [id number] TAKE 1 [facility] 300 mg 9-27 CAPSULE BY it[facility] of capsule 00:00: MOUTH FOUR [place] 00 TIMES Medical DAILY Branch gabapentin 2022-0 Yes [id number] TAKE 1 [facility] 300 mg 9-27 CAPSULE BY it[facility] of capsule 00:00: MOUTH FOUR [place] 00 TIMES Medical DAILY Branch gabapentin 2022-0 Yes [id number] TAKE 1 [facility] 300 mg 9-27 CAPSULE BY ity of capsule 00:00: MOUTH FOUR [place] 00 TIMES Medical DAILY Branch gabapentin 2022-0 Yes [id number] TAKE 1 [facility] 300 mg 9-27 CAPSULE BY it[facility] of capsule 00:00: MOUTH FOUR [place] 00 TIMES Medical DAILY Branch gabapentin 2022-0 Yes [id number] TAKE 1 [facility] 300 mg 9-27 CAPSULE BY it[facility] of capsule 00:00: MOUTH FOUR [place] 00 TIMES Medical DAILY Branch gabapentin 2022-0 Yes [id number] TAKE 1 [facility] 300 mg 9-27 CAPSULE BY [facility] of capsule 00:00: MOUTH FOUR [place] 00 TIMES Medical DAILY Branch gabapentin 2022-0 Yes [id number] TAKE 1 [facility] 300 mg 9-27 CAPSULE BY ity of capsule 00:00: MOUTH FOUR [place] 00 TIMES Medical DAILY Branch gabapentin 2022-0 Yes [id number] TAKE 1 [facility] 300 mg 9-27 CAPSULE BY ity of capsule 00:00: MOUTH FOUR [place] 00 TIMES Medical DAILY Branch gabapentin 2022-0 Yes [id number] TAKE 1 [facility] 300 mg 9-27 CAPSULE BY ity of capsule 00:00: MOUTH FOUR [place] 00 TIMES Medical DAILY Branch gabapentin 2022-0 Yes [id number] TAKE 1 [facility] 300 mg 9-27 CAPSULE BY [facility] of capsule 00:00: MOUTH FOUR [place] 00 TIMES Medical DAILY Branch gabapentin 2022-0 Yes [id number] TAKE 1 [facility] 300 mg 9-27 CAPSULE BY it[facility] of capsule 00:00: MOUTH FOUR [place] 00 TIMES Medical DAILY Branch gabapentin 2022-0 Yes [id number] TAKE 1 [facility] 300 mg 9-27 CAPSULE BY ity of capsule 00:00: MOUTH FOUR [place] 00 TIMES Medical DAILY Branch gabapentin 2022-0 Yes [id number] TAKE 1 [facility] 300 mg 9-27 CAPSULE BY [facility] of capsule 00:00: MOUTH FOUR [place] 00 TIMES Medical DAILY Branch gabapentin 2022-0 Yes [id number] TAKE 1 [facility] 300 mg 9-27 CAPSULE BY ity of capsule 00:00: MOUTH FOUR [place] 00 TIMES Medical DAILY Branch gabapentin 2022-0 Yes [id number] TAKE 1 [facility] 300 mg 9-27 CAPSULE BY it[facility] of capsule 00:00: MOUTH FOUR [place] 00 TIMES Medical DAILY Branch gabapentin 2022-0 Yes [id number] TAKE 1 [facility] 300 mg 9-27 CAPSULE BY ity of capsule 00:00: MOUTH FOUR [place] 00 TIMES Medical DAILY Branch gabapentin 2022-0 Yes [id number] TAKE 1 [facility] 300 mg 9-27 CAPSULE BY it[facility] of capsule 00:00: MOUTH FOUR [place] 00 TIMES Medical DAILY Branch gabapentin 2022-0 Yes [id number] TAKE 1 [facility] 300 mg 9-27 CAPSULE BY [facility] of capsule 00:00: MOUTH [place] 00 TIMES Medical DAILY Branch gabapentin 2022-0 2022- No [id number] TAKE 1 [facility] 300 mg 9-27 12-20 CAPSULE BY ity of capsule 00:00: 00:00 MOUTH FOUR [place] 00 :00 TIMES Medical DAILY Branch clonazePAM 2022-0 Yes [id number] 1mg Take 1 [facility] 1 mg tablet 9-26 tablet by ity of 00:00: mouth in [place] 00 the Medical morning Branch and 1 tablet at noon and 1 tablet in the evening. clonazePAM 2022-0 Yes [id number] 1mg Take 1 [facility] 1 mg tablet 9-26 tablet by ity of 00:00: mouth in [place] 00 the Medical morning Branch and 1 tablet at noon and 1 tablet in the evening. clonazePAM 2022-0 Yes [id number] 1mg Take 1 [facility] 1 mg tablet 9-26 tablet by [facility] of 00:00: mouth in [place] [address] the Medical morning Branch and 1 tablet at noon and 1 tablet in the evening. clonazePAM 2022-0 Yes [id number] 1mg Take 1 [facility] 1 mg tablet 9-26 tablet by [facility] of 00:00: mouth in [place] [address] the Medical morning Branch and 1 tablet at noon and 1 tablet in the evening. clonazePAM 2022-0 Yes [id number] 1mg Take 1 [facility] 1 mg tablet 9-26 tablet by [facility] of 00:00: mouth in [place] [address] the Medical morning Branch and 1 tablet at noon and 1 tablet in the evening. clonazePAM 2022-0 Yes [id number] 1mg Take 1 [facility] 1 mg tablet 9-26 tablet by [facility] of 00:00: mouth in [place] [address] the Medical morning Branch and 1 tablet at noon and 1 tablet in the evening. clonazePAM 2022-0 Yes [id number] 1mg Take 1 [facility] 1 mg tablet 9-26 tablet by [facility] of 00:00: mouth in [place] [address] the Medical morning Branch and 1 tablet at noon and 1 tablet in the evening. clonazePAM 2022-0 Yes [id number] 1mg Take 1 [facility] 1 mg tablet 9-26 tablet by [facility] of 00:00: mouth in [place] [address] the Medical morning Branch and 1 tablet at noon and 1 tablet in the evening. clonazePAM 2022-0 Yes [id number] 1mg Take 1 [facility] 1 mg tablet 9-26 tablet by [facility] of 00:00: mouth in [place] [address] the Medical morning Branch and 1 tablet at noon and 1 tablet in the evening. clonazePAM 2022-0 Yes [id number] 1mg Take 1 [facility] 1 mg tablet 9-26 tablet by [facility] of 00:00: mouth in [place] [address] the Medical morning Branch and 1 tablet at noon and 1 tablet in the evening. clonazePAM 2022-0 Yes [id number] 1mg Take 1 [facility] 1 mg tablet 9-26 tablet by [facility] of 00:00: mouth in [place] [address] the Medical morning Branch and 1 tablet at noon and 1 tablet in the evening. clonazePAM 2022-0 Yes [id number] 1mg Take 1 [facility] 1 mg tablet 9-26 tablet by [facility] of 00:00: mouth in [place] 00 the Medical morning Branch and 1 tablet at noon and 1 tablet in the evening. clonazePAM 2022-0 Yes [id number] 1mg Take 1 [facility] 1 mg tablet 9-26 tablet by [facility] of 00:00: mouth in [place] 00 the Medical morning Branch and 1 tablet at noon and 1 tablet in the evening. clonazePAM 2022-0 Yes [id number] 1mg Take 1 [facility] 1 mg tablet 9-26 tablet by [facility] of 00:00: mouth in [place] 00 the Medical morning Branch and 1 tablet at noon and 1 tablet in the evening. clonazePAM 2022-0 Yes [id number] 1mg Take 1 [facility] 1 mg tablet 9-26 tablet by [facility] of 00:00: mouth in [place] [address] the Medical morning Branch and 1 tablet at noon and 1 tablet in the evening. clonazePAM 2022-0 Yes [id number] 1mg Take 1 [facility] 1 mg tablet 9-26 tablet by [facility] of 00:00: mouth in [place] [address] the Medical morning Branch and 1 tablet at noon and 1 tablet in the evening. clonazePAM 2022-0 Yes [id number] 1mg Take 1 [facility] 1 mg tablet 9-26 tablet by [facility] of 00:00: mouth in [place] [address] the Medical morning Branch and 1 tablet at noon and 1 tablet in the evening. clonazePAM 2022-0 Yes [id number] 1mg Take 1 [facility] 1 mg tablet 9-26 tablet by [facility] of 00:00: mouth in [place] [address] the Medical morning Branch and 1 tablet at noon and 1 tablet in the evening. clonazePAM 2022-0 Yes [id number] 1mg Take 1 [facility] 1 mg tablet 9-26 tablet by [facility] of 00:00: mouth in [place] [address] the Medical morning Branch and 1 tablet at noon and 1 tablet in the evening. clonazePAM 2022-0 Yes [id number] 1mg Take 1 [facility] 1 mg tablet 9-26 tablet by [facility] of 00:00: mouth in [place] [address] the Medical morning Branch and 1 tablet at noon and 1 tablet in the evening. clonazePAM 2022-0 Yes [id number] 1mg Take 1 [facility] 1 mg tablet 9-26 tablet by [facility] of 00:00: mouth in [place] [address] the Medical morning Branch and 1 tablet at noon and 1 tablet in the evening. clonazePAM 2022-0 Yes [id number] 1mg Take 1 [facility] 1 mg tablet 9-26 tablet by [facility] of 00:00: mouth in [place] [address] the Medical morning Branch and 1 tablet at noon and 1 tablet in the evening. clonazePAM 2022-0 Yes [id number] 1mg Take 1 [facility] 1 mg tablet 9-26 tablet by [facility] of 00:00: mouth in [place] [address] the Medical morning Branch and 1 tablet at noon and 1 tablet in the evening. clonazePAM 2022-0 Yes [id number] 1mg Take 1 [facility] 1 mg tablet 9-26 tablet by [facility] of 00:00: mouth in [place] [address] the Medical morning Branch and 1 tablet at noon and 1 tablet in the evening. clonazePAM 2022-0 Yes [id number] 1mg Take 1 [facility] 1 mg tablet 9-26 tablet by [facility] of 00:00: mouth in [place] [address] the Medical morning Branch and 1 tablet at noon and 1 tablet in the evening. clonazePAM 2022-0 Yes [id number] 1mg Take 1 [facility] 1 mg tablet 9-26 tablet by [facility] of 00:00: mouth in [place] [address] the Medical morning [place] and 1 tablet at noon and 1 tablet in the evening. clonazePAM 2022-0 Yes [id number] 1mg Take 1 [facility] 1 mg tablet 9-26 tablet by [facility] of 00:00: mouth in [place] [address] the Medical morning Branch and 1 tablet at noon and 1 tablet in the evening. clonazePAM 2022-0 Yes [id number] 1mg Take 1 [facility] 1 mg tablet 9-26 tablet by [facility] of 00:00: mouth in [place] [address] the Medical morning Branch and 1 tablet at noon and 1 tablet in the evening. clonazePAM 2022-0 Yes [id number] 1mg Take 1 [facility] 1 mg tablet 9-26 tablet by [facility] of 00:00: mouth in [place] [address] the Medical morning Branch and 1 tablet at noon and 1 tablet in the evening. clonazePAM 2022-0 Yes [id number] 1mg Take 1 [facility] 1 mg tablet 9-26 tablet by [facility] of 00:00: mouth in [place] [address] the Medical morning Branch and 1 tablet at noon and 1 tablet in the evening. clonazePAM 2022-0 Yes [id number] 1mg Take 1 [facility] 1 mg tablet 9-26 tablet by [facility] of 00:00: mouth in [place] 00 the Medical morning Branch and 1 tablet at noon and 1 tablet in the evening. clonazePAM 2022-0 Yes [id number] 1mg Take 1 [facility] 1 mg tablet 9-26 tablet by [facility] of 00:00: mouth in [place] [address] the Medical morning Branch and 1 tablet at noon and 1 tablet in the evening. clonazePAM 2022-0 Yes [id number] 1mg Take 1 [facility] 1 mg tablet 9-26 tablet by [facility] of 00:00: mouth in [place] 00 the Medical morning Branch and 1 tablet at noon and 1 tablet in the evening. clonazePAM 2022-0 Yes [id number] 1mg Take 1 [facility] 1 mg tablet 9-26 tablet by [facility] of 00:00: mouth in [place] [address] the Medical morning Branch and 1 tablet at noon and 1 tablet in the evening. clonazePAM 2022-0 Yes [id number] 1mg Take 1 [facility] 1 mg tablet 9-26 tablet by [facility] of 00:00: mouth in [place] [address] the Medical morning Branch and 1 tablet at noon and 1 tablet in the evening. clonazePAM 2022-0 Yes [id number] 1mg Take 1 [facility] 1 mg tablet 9-26 tablet by [facility] of 00:00: mouth in [place] [address] the Medical morning [place] and 1 tablet at noon and 1 tablet in the evening. clonazePAM 2022-0 Yes [id number] 1mg Take 1 [facility] 1 mg tablet 9-26 tablet by [facility] of 00:00: mouth in [place] [address] the Medical morning Branch and 1 tablet at noon and 1 tablet in the evening. clonazePAM 2022-0 Yes [id number] 1mg Take 1 [facility] 1 mg tablet 9-26 tablet by [facility] of 00:00: mouth in [place] [address] the Medical morning Branch and 1 tablet at noon and 1 tablet in the evening. clonazePAM 2022-0 Yes [id number] 1mg Take 1 [facility] 1 mg tablet 9-26 tablet by [facility] 00:00: mouth in [place] [address] the Medical morning Branch and 1 tablet at noon and 1 tablet in the evening. clonazePAM 2022-0 Yes [id number] 1mg Take 1 [facility] 1 mg tablet 9-26 tablet by [facility] of 00:00: mouth in [place] 00 the Medical morning Branch and 1 tablet at noon and 1 tablet in the evening. clonazePAM 2021-0 Yes [id number] 1mg Take 1 [facility] 1 mg tablet 9-26 tablet by [facility] of 00:00: mouth in [place] 00 the Medical morning Branch and 1 tablet at noon and 1 tablet in the evening. clonazePAM 2021-0 Yes [id number] 1mg Take 1 [facility] 1 mg tablet 9-26 tablet by [facility] of 00:00: mouth in [place] 00 the Medical morning Branch and 1 tablet at noon and 1 tablet in the evening. clonazePAM 2021-0 2021- No [id number] 1mg Take 1 [facility] 1 mg tablet 04-28- tablet by it y of 00:00: 00:00 mouth in [place] 00 :00 the Medical morning Branch and 1 tablet at noon and 1 tablet in the evening. clonazePAM 2021-0 2021- No [id number] 1mg Take 1 [facility] 1 mg tablet 04-28 tablet by it y of 00:00: 00:00 mouth in [place] 00 :00 the Medical morning Branch and 1 tablet at noon and 1 tablet in the evening. HYDROcodone 2021- Yes 2745 1{tbl} Take 1 [facility] -acetaminop 9-07 tablet by [facility] hen 7.5-325 00:00: mouth [place] mg per 00 every 6 Medical tablet (six) Branch hours as needed for Pain. Indication s: chronic pain HYDROcodone 2021- Yes 2745 1{tbl} Take 1 [facility] [...] Pain. Indication s: chronic pain HYDROcodone 0 2- No 2745 1{tbl} Take 1 [facility] -acetaminop 9-07 10-05 tablet by it y of hen 7.5-325 00:00: 00:[place] mouth [place] per 00 :00 every 6 Medical tablet (six) Branch hours as needed for Pain. Indication s: chronic pain VERAPAMIL 2021-0 Yes [id number] 240mg TAKE 1 [facility] 240 mg 24 8-29 CAPSULE BY [facility] hr capsule 00:00: MOUTH DAILY Medical Branch VERAPAMIL 2022-0 Yes [id number] 240mg TAKE 1 [facility] 240 mg 24 8-29 CAPSULE BY [facility] of hr capsule 00:00: MOUTH DAILY Medical Branch VERAPAMIL 2022-0 Yes [id number] 240mg TAKE 1 [facility] 240 mg 24 8-29 CAPSULE BY [facility] of hr capsule 00:00: MOUTH DAILY Medical Branch VERAPAMIL 2022-0 Yes [id number] 240mg TAKE 1 [facility] 240 mg 24 8-29 CAPSULE BY [facility] of hr capsule 00:00: MOUTH DAILY Medical Branch VERAPAMIL 2022-0 Yes [id number] 240mg TAKE 1 [facility] 240 mg 24 8-29 CAPSULE BY [facility] of hr capsule 00:00: MOUTH DAILY Medical Branch VERAPAMIL 2022-0 Yes [id number] 240mg TAKE 1 [facility] 240 mg 24 8-29 CAPSULE BY [facility] of hr capsule 00:00: MOUTH DAILY Medical Branch VERAPAMIL 2022-0 Yes [id number] 240mg TAKE 1 [facility] 240 mg 24 8-29 CAPSULE BY [facility] of hr capsule 00:00: MOUTH DAILY Medical Branch VERAPAMIL 2022-0 Yes [id number] 240mg TAKE 1 [facility] 240 mg 24 8-29 CAPSULE BY [facility] of hr capsule 00:00: MOUTH DAILY Medical Branch VERAPAMIL 2022-0 Yes [id number] 240mg TAKE 1 [facility] 240 mg 24 8-29 CAPSULE BY [facility] of hr capsule 00:00: MOUTH DAILY Medical Branch VERAPAMIL 2022-0 Yes [id number] 240mg TAKE 1 [facility] 240 mg 24 8-29 CAPSULE BY [facility] of hr capsule 00:00: MOUTH DAILY Medical Branch VERAPAMIL 2022-0 Yes [id number] 240mg TAKE 1 [facility] 240 mg 24 8-29 CAPSULE BY [facility] of hr capsule 00:00: MOUTH DAILY Medical Branch VERAPAMIL 2022-0 Yes [id number] 240mg TAKE 1 [facility] 240 mg 24 8-29 CAPSULE BY [facility] of hr capsule 00:00: MOUTH DAILY Medical Branch VERAPAMIL 2022-0 Yes [id number] 240mg TAKE 1 [facility] 240 mg 24 8-29 CAPSULE BY [facility] of hr capsule 00:00: MOUTH DAILY Medical Branch VERAPAMIL 2022-0 Yes [id number] 240mg TAKE 1 [facility] 240 mg 24 8-29 CAPSULE BY [facility] of hr capsule 00:00: MOUTH DAILY Medical Branch VERAPAMIL 2022-0 Yes [id number] 240mg TAKE 1 [facility] 240 mg 24 8-29 CAPSULE BY [facility] of hr capsule 00:00: MOUTH DAILY Medical Branch VERAPAMIL 2022-0 Yes [id number] 240mg TAKE 1 [facility] 240 mg 24 8-29 CAPSULE BY [facility] of hr capsule 00:00: MOUTH DAILY Medical Branch VERAPAMIL 2022-0 Yes [id number] 240mg TAKE 1 [facility] 240 mg 24 8-29 CAPSULE BY [facility] of hr capsule 00:00: MOUTH DAILY Medical Branch VERAPAMIL 2022-0 Yes [id number] 240mg TAKE 1 [facility] 240 mg 24 8-29 CAPSULE BY [facility] of hr capsule 00:00: MOUTH DAILY Medical Branch VERAPAMIL 2022-0 Yes [id number] 240mg TAKE 1 [facility] 240 mg 24 8-29 CAPSULE BY [facility] of hr capsule 00:00: MOUTH DAILY Medical Branch VERAPAMIL 2022-0 Yes [id number] 240mg TAKE 1 [facility] 240 mg 24 8-29 CAPSULE BY [facility] of hr capsule 00:00: MOUTH DAILY Medical Branch VERAPAMIL 2022-0 Yes [id number] 240mg TAKE 1 [facility] 240 mg 24 8-29 CAPSULE BY [facility] of hr capsule 00:00: MOUTH DAILY Medical Branch VERAPAMIL 2022-0 Yes [id number] 240mg TAKE 1 [facility] 240 mg 24 8-29 CAPSULE BY [facility] of hr capsule 00:00: MOUTH 00 DAILY Medical Branch VERAPAMIL 2022-0 Yes [id number] 240mg TAKE 1 [facility] 240 mg 24 8-29 CAPSULE BY [facility] of hr capsule 00:00: MOUTH 00 DAILY Medical Branch VERAPAMIL 2022-0 Yes [id number] 240mg TAKE 1 [facility] 240 mg 24 8-29 CAPSULE BY [facility] of hr capsule 00:00: MOUTH DAILY Medical Branch VERAPAMIL 2022-0 Yes [id number] 240mg TAKE 1 [facility] 240 mg 24 8-29 CAPSULE BY [facility] of hr capsule 00:00: MOUTH 00 DAILY Medical Branch VERAPAMIL 2022-0 Yes [id number] 240mg TAKE 1 [facility] 240 mg 24 8-29 CAPSULE BY [facility] of hr capsule 00:00: MOUTH DAILY Medical Branch VERAPAMIL 2022-0 Yes [id number] 240mg TAKE 1 [facility] 240 mg 24 8-29 CAPSULE BY [facility] of hr capsule 00:00: MOUTH DAILY Medical Branch VERAPAMIL 2022-0 Yes [id number] 240mg TAKE 1 [facility] 240 mg 24 8-29 CAPSULE BY [facility] of hr capsule 00:00: MOUTH 00 DAILY Medical Branch VERAPAMIL 2022-0 Yes [id number] 240mg TAKE 1 [facility] 240 mg 24 8-29 CAPSULE BY [facility] of hr capsule 00:00: MOUTH DAILY Medical Branch VERAPAMIL 2022-0 Yes [id number] 240mg TAKE 1 [facility] 240 mg 24 8-29 CAPSULE BY [facility] of hr capsule 00:00: MOUTH DAILY Medical Branch VERAPAMIL 2022-0 Yes [id number] 240mg TAKE 1 [facility] 240 mg 24 8-29 CAPSULE BY [facility] of hr capsule 00:00: MOUTH 00 DAILY Medical Branch VERAPAMIL 2022-0 2022- No [id number] 240mg TAKE 1 [facility] 240 mg 24 8-29 11-08 CAPSULE BY it[facility] of hr capsule 00:00: 00:00 MOUTH [place] 00 :00 DAILY Medical Branch VERAPAMIL 2022-0 2022- No [id number] 240mg TAKE 1 [facility] 240 mg 24 8-29 -08 CAPSULE BY it[facility] of hr capsule 00:00: 00:00 MOUTH [place] 00 :00 DAILY Medical Branch VERAPAMIL 2022-0 2022- No [id number] 240mg TAKE 1 [facility] 240 mg 24 8-29 11-08 CAPSULE BY it[facility] of hr capsule 00:00: 00:00 MOUTH [place] 00 :00 DAILY Medical Branch ALBUTEROL Yes [id number] INHALE 2 [facility] 90 8-24 PUFFS BY [facility] of mcg/actuati 00:00: MOUTH [place] on inhaler 00 EVERY 6 Medica l HOURS Branch NEEDED FOR WHEEZING, SHORTNESS OF BREATH OR BRONCHOSPA SMS ALBUTEROL Yes [id number] INHALE 2 [facility] 90 8-24 PUFFS BY ity of mcg/actuati 00:00: MOUTH [place] on inhaler 00 EVERY 6 Medica l HOURS Branch NEEDED FOR WHEEZING, SHORTNESS OF BREATH OR BRONCHOSPA SMS ALBUTEROL Yes [id number] INHALE 2 [facility] 90 8-24 PUFFS BY ity of mcg/actuati 00:00: MOUTH [place] on inhaler 00 EVERY 6 Medica l HOURS Branch NEEDED FOR WHEEZING, SHORTNESS OF BREATH OR BRONCHOSPA SMS ALBUTEROL Yes [id number] INHALE 2 [facility] 90 8-24 PUFFS BY ity of mcg/actuati 00:00: MOUTH [place] on inhaler 00 EVERY 6 Medica l HOURS Branch NEEDED FOR WHEEZING, SHORTNESS OF BREATH OR BRONCHOSPA SMS ALBUTEROL Yes [id number] INHALE 2 [facility] 90 8-24 PUFFS BY ity of mcg/actuati 00:00: MOUTH [place] on inhaler 00 EVERY 6 Medica l HOURS Branch NEEDED FOR WHEEZING, SHORTNESS OF BREATH OR BRONCHOSPA SMS ALBUTEROL Yes [id number] INHALE 2 [facility] 90 8-24 PUFFS BY ity of mcg/actuati 00:00: MOUTH [place] on inhaler 00 EVERY 6 Medica l HOURS Branch NEEDED FOR WHEEZING, SHORTNESS OF BREATH OR BRONCHOSPA SMS ALBUTEROL Yes [id number] INHALE 2 [facility] 90 8-24 PUFFS BY ity of mcg/actuati 00:00: MOUTH [place] on inhaler 00 EVERY 6 Medica l HOURS Branch NEEDED FOR WHEEZING, SHORTNESS OF BREATH OR BRONCHOSPA SMS ALBUTEROL Yes [id number] INHALE 2 [facility] 90 8-24 PUFFS BY ity of mcg/actuati 00:00: MOUTH [place] on inhaler 00 EVERY 6 Medica l HOURS Branch NEEDED FOR WHEEZING, SHORTNESS OF BREATH OR BRONCHOSPA SMS ALBUTEROL Yes [id number] INHALE 2 [facility] 90 8-24 PUFFS BY ity of mcg/actuati 00:00: MOUTH [place] on inhaler 00 EVERY 6 Medica l HOURS Branch NEEDED FOR WHEEZING, SHORTNESS OF BREATH OR BRONCHOSPA SMS ALBUTEROL Yes [id number] INHALE 2 [facility] 90 8-24 PUFFS BY ity of mcg/actuati 00:00: MOUTH [place] on inhaler 00 EVERY 6 Medica l HOURS Branch NEEDED FOR WHEEZING, SHORTNESS OF BREATH OR BRONCHOSPA SMS ALBUTEROL Yes [id number] INHALE 2 [facility] 90 8-24 PUFFS BY ity of mcg/actuati 00:00: MOUTH [place] on inhaler 00 EVERY 6 Medica l HOURS Branch NEEDED FOR WHEEZING, SHORTNESS OF BREATH OR BRONCHOSPA SMS ALBUTEROL Yes [id number] INHALE 2 [facility] 90 8-24 PUFFS BY ity of mcg/actuati 00:00: MOUTH [place] on inhaler 00 EVERY 6 Medica l HOURS Branch NEEDED FOR WHEEZING, SHORTNESS OF BREATH OR BRONCHOSPA SMS ALBUTEROL Yes [id number] INHALE 2 [facility] 90 8-24 PUFFS BY ity of mcg/actuati 00:00: MOUTH [place] on inhaler 00 EVERY 6 Medica l HOURS Branch NEEDED FOR WHEEZING, SHORTNESS OF BREATH OR BRONCHOSPA SMS ALBUTEROL Yes [id number] INHALE 2 [facility] 90 8-24 PUFFS BY ity of mcg/actuati 00:00: MOUTH [place] on inhaler 00 EVERY 6 Medica l HOURS Branch NEEDED FOR WHEEZING, SHORTNESS OF BREATH OR BRONCHOSPA SMS ALBUTEROL Yes [id number] INHALE 2 [facility] 90 8-24 PUFFS BY ity of mcg/actuati 00:00: MOUTH [place] on inhaler 00 EVERY 6 Medica l HOURS Branch NEEDED FOR WHEEZING, SHORTNESS OF BREATH OR BRONCHOSPA SMS ALBUTEROL Yes [id number] INHALE 2 [facility] 90 8-24 PUFFS BY ity of mcg/actuati 00:00: MOUTH [place] on inhaler 00 EVERY 6 Medica l HOURS Branch NEEDED FOR WHEEZING, SHORTNESS OF BREATH OR BRONCHOSPA SMS ALBUTEROL Yes [id number] INHALE 2 [facility] 90 8-24 PUFFS BY ity of mcg/actuati 00:00: MOUTH [place] on inhaler 00 EVERY 6 Medica l HOURS Branch NEEDED FOR WHEEZING, SHORTNESS OF BREATH OR BRONCHOSPA SMS ALBUTEROL 2021- No [id number] INHALE 2 [facility] 90 8-24 10-21 PUFFS BY ity of mcg/actuati 00:00: 00:00 MOUTH [place] on inhaler 00 :00 EVERY 6 Medica l HOURS Branch NEEDED FOR WHEEZING, SHORTNESS OF BREATH OR BRONCHOSPA SMS ALBUTEROL 2021- No [id number] INHALE 2 [facility] 90 8-24 10-21 PUFFS [...] Pain. Indication s: chronic pain HYDROcodone 2021- Yes 2745 1{tbl} Take 1 [facility] -acetaminop 8-09 tablet by [facility] of hen 7.5-325 00:00: mouth [place] mg per 00 every 6 Medical tablet (six) Branch hours as needed for Pain. Indication s: chronic pain HYDROcodone 2021- Yes 2745 1{tbl} Take 1 [facility] -acetaminop 8-09 tablet by [facility] of hen 7.5-325 00:00: mouth [place] mg per 00 every 6 Medical tablet (six) Branch hours as needed for Pain. Indication s: chronic pain HYDROcodone 2021- Yes 2745 1{tbl} Take 1 [facility] -acetaminop 8-09 tablet by [facility] of hen 7.5-325 00:00: mouth [place] mg per 00 every 6 Medical tablet (six) Branch hours as needed for Pain. Indication s: chronic pain HYDROcodone 2021-2021- No 2745 1{tbl} Take 1 [facility] -acetaminop 8-09 09-07 tablet by it y of hen 7.5-325 00:00: 00:00 mouth [place] mg per 00 :00 every 6 Medical tablet (six) Branch hours as needed for Pain. Indication s: chronic pain QUINAPRIL 2-0 Yes [id number] 40mg TAKE 1 [facility] 40 mg 8-01 TABLET BY [facility] of tablet 00:00: MOUTH [place] 00 EVERY Medical MORNING Branch TIZANIDINE 2021-0 Yes [id number] TAKE 1 [facility] 4 mg tablet 8-01 TABLET BY [facility] of 00:00: MOUTH [place] 00 EVERY 8 Medical HOURS Branch NEEDED QUINAPRIL 2-0 Yes [id number] 40mg TAKE 1 [facility] 40 mg 8-01 TABLET BY [facility] of tablet 00:00: MOUTH [place] 00 EVERY Medical MORNING Branch TIZANIDINE 2021-0 Yes [id number] TAKE 1 [facility] 4 mg tablet 8-01 TABLET BY [facility] of 00:00: MOUTH [place] 00 EVERY 8 Medical HOURS Branch NEEDED QUINAPRIL 2-0 Yes [id number] 40mg TAKE 1 [facility] 40 mg 8-01 TABLET BY [facility] of tablet 00:00: MOUTH [place] 00 EVERY Medical MORNING Branch TIZANIDINE 2-0 Yes [id number] TAKE 1 [facility] 4 mg tablet 8-01 TABLET BY [facility] of 00:00: MOUTH [place] 00 EVERY 8 Medical HOURS Branch NEEDED QUINAPRIL 2-0 Yes [id number] 40mg TAKE 1 [facility] 40 mg 8-01 TABLET BY [facility] of tablet 00:00: MOUTH [place] 00 EVERY Medical MORNING Branch TIZANIDINE 2-0 Yes [id number] TAKE 1 [facility] 4 mg tablet 8-01 TABLET BY [facility] of 00:00: MOUTH [place] 00 EVERY 8 Medical HOURS Branch NEEDED QUINAPRIL 2-0 Yes [id number] 40mg TAKE 1 [facility] 40 mg 8-01 TABLET BY [facility] of tablet 00:00: MOUTH [place] 00 EVERY Medical MORNING Branch TIZANIDINE 2-0 Yes [id number] TAKE 1 [facility] 4 mg tablet 8-01 TABLET BY [facility] of 00:00: MOUTH [place] 00 EVERY 8 Medical HOURS Branch NEEDED QUINAPRIL 2022-0 Yes [id number] 40mg TAKE 1 [facility] 40 mg 8-01 TABLET BY [facility] of tablet 00:00: MOUTH [place] 00 EVERY Medical MORNING Branch TIZANIDINE 2-0 Yes [id number] TAKE 1 [facility] 4 mg tablet 8-01 TABLET BY [facility] of 00:00: MOUTH [place] 00 EVERY 8 Medical HOURS Branch NEEDED QUINAPRIL 2022-0 Yes [id number] 40mg TAKE 1 [facility] 40 mg 8-01 TABLET BY [facility] of tablet 00:00: MOUTH [place] 00 EVERY Medical MORNING Branch TIZANIDINE 2022-0 Yes [id number] TAKE 1 [facility] 4 mg tablet 8-01 TABLET BY [facility] of 00:00: MOUTH [place] 00 EVERY 8 Medical HOURS Branch NEEDED QUINAPRIL 2022-0 Yes [id number] 40mg TAKE 1 [facility] 40 mg 8-01 TABLET BY [facility] of tablet 00:00: MOUTH [place] 00 EVERY Medical MORNING Branch TIZANIDINE 2022-0 Yes [id number] TAKE 1 [facility] 4 mg tablet 8-01 TABLET BY [facility] of 00:00: MOUTH [place] 00 EVERY 8 Medical HOURS Branch NEEDED QUINAPRIL 2022-0 Yes [id number] 40mg TAKE 1 [facility] 40 mg 8-01 TABLET BY [facility] of tablet 00:00: MOUTH [place] 00 EVERY Medical MORNING Branch TIZANIDINE 2022-0 Yes [id number] TAKE 1 [facility] 4 mg tablet 8-01 TABLET BY [facility] of 00:00: MOUTH [place] 00 EVERY 8 Medical HOURS Branch NEEDED QUINAPRIL 2022-0 Yes [id number] 40mg TAKE 1 [facility] 40 mg 8-01 TABLET BY [facility] of tablet 00:00: MOUTH [place] 00 EVERY Medical MORNING Branch TIZANIDINE 2022-0 Yes [id number] TAKE 1 [facility] 4 mg tablet 8-01 TABLET BY [facility] of 00:00: MOUTH [place] 00 EVERY 8 Medical HOURS Branch NEEDED QUINAPRIL 2022-0 Yes [id number] 40mg TAKE 1 [facility] 40 mg 8-01 TABLET BY [facility] of tablet 00:00: MOUTH [place] 00 EVERY Medical MORNING Branch TIZANIDINE 2022-0 Yes [id number] TAKE 1 [facility] 4 mg tablet 8-01 TABLET BY [facility] of 00:00: MOUTH [place] 00 EVERY 8 Medical HOURS Branch NEEDED QUINAPRIL 2022-0 Yes [id number] 40mg TAKE 1 [facility] 40 mg 8-01 TABLET BY [facility] of tablet 00:00: MOUTH [place] 00 EVERY Medical MORNING Branch TIZANIDINE 2022-0 Yes [id number] TAKE 1 [facility] 4 mg tablet 8-01 TABLET BY [facility] of 00:00: MOUTH [place] 00 EVERY 8 Medical HOURS Branch NEEDED QUINAPRIL 2022-0 Yes [id number] 40mg TAKE 1 [facility] 40 mg 8-01 TABLET BY [facility] of tablet 00:00: MOUTH [place] 00 EVERY Medical MORNING Branch TIZANIDINE 2022-0 Yes [id number] TAKE 1 [facility] 4 mg tablet 8-01 TABLET BY [facility] of 00:00: MOUTH [place] 00 EVERY 8 Medical HOURS Branch NEEDED QUINAPRIL 2022-0 Yes [id number] 40mg TAKE 1 [facility] 40 mg 8-01 TABLET BY [facility] of tablet 00:00: MOUTH [place] 00 EVERY Medical MORNING Branch TIZANIDINE 2022-0 Yes [id number] TAKE 1 [facility] 4 mg tablet 8-01 TABLET BY [facility] of 00:00: MOUTH [place] 00 EVERY 8 Medical HOURS Branch NEEDED QUINAPRIL 2022-0 Yes [id number] 40mg TAKE 1 [facility] 40 mg 8-01 TABLET BY [facility] of tablet 00:00: MOUTH [place] 00 EVERY Medical MORNING Branch TIZANIDINE 2022-0 Yes [id number] TAKE 1 [facility] 4 mg tablet 8-01 TABLET BY [facility] of 00:00: MOUTH [place] 00 EVERY 8 Medical HOURS Branch NEEDED QUINAPRIL 2022-0 Yes [id number] 40mg TAKE 1 [facility] 40 mg 8-01 TABLET BY [facility] of tablet 00:00: MOUTH [place] 00 EVERY Medical MORNING Branch TIZANIDINE 2-0 Yes [id number] TAKE 1 [facility] 4 mg tablet 8-01 TABLET BY [facility] of 00:00: MOUTH [place] 00 EVERY 8 Medical HOURS Branch NEEDED QUINAPRIL 2022-0 Yes [id number] 40mg TAKE 1 [facility] 40 mg 8-01 TABLET BY [facility] of tablet 00:00: MOUTH [place] 00 EVERY Medical MORNING Branch TIZANIDINE 2022-0 Yes [id number] TAKE 1 [facility] 4 mg tablet 8-01 TABLET BY [facility] of 00:00: MOUTH [place] 00 EVERY 8 Medical HOURS Branch NEEDED QUINAPRIL 2022-0 Yes [id number] 40mg TAKE 1 [facility] 40 mg 8-01 TABLET BY [facility] of tablet 00:00: MOUTH [place] 00 EVERY Medical MORNING Branch TIZANIDINE 2022-0 Yes [id number] TAKE 1 [facility] 4 mg tablet 8-01 TABLET BY [facility] of 00:00: MOUTH [place] 00 EVERY 8 Medical HOURS Branch NEEDED QUINAPRIL 2022-0 Yes [id number] 40mg TAKE 1 [facility] 40 mg 8-01 TABLET BY [facility] of tablet 00:00: MOUTH [place] 00 EVERY Medical MORNING Branch TIZANIDINE 2-0 Yes [id number] TAKE 1 [facility] 4 mg tablet 8-01 TABLET BY [facility] of 00:00: MOUTH [place] 00 EVERY 8 Medical HOURS Branch NEEDED TIZANIDINE 2-0 Yes [id number] TAKE 1 [facility] 4 mg tablet 8-01 TABLET BY [facility] of 00:00: MOUTH [place] 00 EVERY 8 Medical HOURS Branch NEEDED TIZANIDINE 2-0 Yes [id number] TAKE 1 [facility] 4 mg tablet 8-01 TABLET BY [facility] of 00:00: MOUTH [place] 00 EVERY 8 Medical HOURS Branch NEEDED TIZANIDINE 2-0 Yes [id number] TAKE 1 [facility] 4 mg tablet 8-01 TABLET BY [facility] of 00:00: MOUTH [place] 00 EVERY 8 Medical HOURS Branch NEEDED TIZANIDINE 2-0 Yes [id number] TAKE 1 [facility] 4 mg tablet 8-01 TABLET BY it[facility] of 00:00: MOUTH [place] 00 EVERY 8 Medical HOURS Branch NEEDED TIZANIDINE 2-0 2- No [id number] TAKE 1 [facility] 4 mg tablet 8- 10-24 TABLET BY it y of 00:00: 00:00 MOUTH [place] 00 :00 EVERY 8 Medical HOURS Branch NEEDED QUINAPRIL 2-0 2- No [id number] 40mg TAKE 1 [facility] 40 mg 8-01 10-21 TABLET BY [facility] of tablet 00:00: 00:00 MOUTH [place] 00 :00 EVERY Medical MORNING Branch glipiZIDE 2-0 Yes [id number] 5mg TAKE 1 [facility] XL 5 mg 24 7-28 TABLET BY [facility] of hr tablet 00:00: MOUTH [place] 00 DAILY WITH Medical BREAKFAST Branch glipiZIDE 2-0 Yes [id number] 5mg TAKE 1 [facility] XL 5 mg 24 7-28 TABLET BY [facility] of hr tablet 00:00: MOUTH [place] 00 DAILY WITH Medical BREAKFAST Branch glipiZIDE 2-0 Yes [id number] 5mg TAKE 1 [facility] XL 5 mg 24 7-28 TABLET BY [facility] of hr tablet 00:00: MOUTH [place] 00 DAILY WITH Medical BREAKFAST Branch glipiZIDE 2-0 Yes [id number] 5mg TAKE 1 [facility] XL 5 mg 24 7-28 TABLET BY [facility] of hr tablet 00:00: MOUTH [place] 00 DAILY WITH Medical BREAKFAST Branch glipiZIDE 2-0 Yes [id number] 5mg TAKE 1 [facility] XL 5 mg 24 7-28 TABLET BY [facility] of hr tablet 00:00: MOUTH 00 DAILY WITH Medical BREAKFAST Branch glipiZIDE 2-0 Yes [id number] 5mg TAKE 1 [facility] XL 5 mg 24 7-28 TABLET BY [facility] of hr tablet 00:00: MOUTH 00 DAILY WITH Medical BREAKFAST Branch glipiZIDE 2021-0 Yes [id number] 5mg TAKE 1 [facility] XL 5 mg 24 7-28 TABLET BY [facility] of hr tablet 00:00: MOUTH 00 DAILY WITH Medical BREAKFAST Branch glipiZIDE 2021-0 Yes [id number] 5mg TAKE 1 [facility] XL 5 mg 24 7-28 TABLET BY [facility] of hr tablet 00:00: MOUTH DAILY WITH Medical BREAKFAST Branch glipiZIDE 2021-0 Yes [id number] 5mg TAKE 1 [facility] XL 5 mg 24 7-28 TABLET BY [facility] of hr tablet 00:00: MOUTH DAILY WITH Medical BREAKFAST Branch glipiZIDE 2021-0 Yes [id number] 5mg TAKE 1 [facility] XL 5 mg 24 7-28 TABLET BY [facility] of hr tablet 00:00: MOUTH 00 DAILY WITH Medical BREAKFAST Branch glipiZIDE 2021-0 Yes [id number] 5mg TAKE 1 [facility] XL 5 mg 24 7-28 TABLET BY [facility] of hr tablet 00:00: MOUTH 00 DAILY WITH Medical BREAKFAST Branch glipiZIDE 2021-0 Yes [id number] 5mg TAKE 1 [facility] XL 5 mg 24 7-28 TABLET BY [facility] of hr tablet 00:00: MOUTH DAILY WITH Medical BREAKFAST Branch glipiZIDE 2021-0 Yes [id number] 5mg TAKE 1 [facility] XL 5 mg 24 7-28 TABLET BY [facility] of hr tablet 00:00: MOUTH 00 DAILY WITH Medical BREAKFAST Branch glipiZIDE 2021-0 Yes [id number] 5mg TAKE 1 [facility] XL 5 mg 24 7-28 TABLET BY [facility] hr tablet 00:00: MOUTH 00 DAILY WITH Medical BREAKFAST Branch glipiZIDE 2021-0 Yes [id number] 5mg TAKE 1 [facility] XL 5 mg 24 7-28 TABLET BY [facility] hr tablet 00:00: MOUTH 00 DAILY WITH Medical BREAKFAST Branch glipiZIDE Yes [id number] 5mg TAKE 1 [facility] XL 5 mg 24 7-28 TABLET BY [facility] of hr tablet 00:00: MOUTH [place] 00 DAILY WITH Medical BREAKFAST Branch glipiZIDE Yes [id number] 5mg TAKE 1 [facility] XL 5 mg 24 7-28 TABLET BY [facility] of hr tablet 00:00: MOUTH [place] 00 DAILY WITH Medical BREAKFAST Branch glipiZIDE Yes [id number] 5mg TAKE 1 [facility] XL 5 mg 24 7-28 TABLET BY [facility] of hr tablet 00:00: MOUTH [place] 00 DAILY WITH Medical BREAKFAST Branch glipiZIDE Yes [id number] 5mg TAKE 1 [facility] XL 5 mg 24 7-28 TABLET BY [facility] of hr tablet 00:00: MOUTH [place] 00 DAILY WITH Medical BREAKFAST Branch glipiZIDE Yes [id number] 5mg TAKE 1 [facility] XL 5 mg 24 7-28 TABLET BY [facility] of hr tablet 00:00: MOUTH [place] 00 DAILY WITH Medical BREAKFAST Branch glipiZIDE 2021- No [id number] 5mg TAKE 1 [facility] XL 5 mg 24 7-28 10-21 TABLET BY [facility] of hr tablet 00:00: 00:00 MOUTH [place] 00 :00 DAILY WITH Medical BREAKFAST Branch glipiZIDE 2021- No [id number] 5mg TAKE 1 [facility] XL 5 mg 24 7-28 10-21 TABLET BY [facility] of hr tablet 00:00: 00:00 MOUTH [place] 00 :00 DAILY WITH Medical BREAKFAST Branch glipiZIDE 2021-0 2021- No [id number] 5mg TAKE 1 [facility] XL 5 mg 24 7-28 10-21 TABLET BY [facility] of hr tablet 00:00: 00:00 MOUTH [place] 00 :00 DAILY WITH Medical BREAKFAST Branch glipiZIDE 2021- No [id number] 5mg TAKE 1 [facility] XL 5 mg 24 7-28 10-21 TABLET BY [facility] of hr tablet 00:00: 00:00 MOUTH [place] 00 :00 DAILY WITH Medical BREAKFAST Branch clonazePAM Yes [id number] 1mg Take 1 [facility] 1 mg tablet 7-25 tablet by ity of 00:00: mouth in [place] 00 the Medical morning Branch and 1 tablet at noon and 1 tablet in the evening. clonazePAM 2022-0 Yes [id number] 1mg Take 1 [facility] 1 mg tablet 7-25 tablet by ity of 00:00: mouth in [place] 00 the Medical morning Branch and 1 tablet at noon and 1 tablet in the evening. clonazePAM 2022-0 Yes [id number] 1mg Take 1 [facility] 1 mg tablet 7-25 tablet by ity of 00:00: mouth in [place] 00 the Medical morning Branch and 1 tablet at noon and 1 tablet in the evening. clonazePAM 2-0 Yes [id number] 1mg Take 1 [facility] 1 mg tablet 7-25 tablet by ity of 00:00: mouth in [place] 00 the Medical morning Branch and 1 tablet at noon and 1 tablet in the evening. clonazePAM 2-0 Yes [id number] 1mg Take 1 [facility] 1 mg tablet 7-25 tablet by ity of 00:00: mouth in [place] 00 the Medical morning Branch and 1 tablet at noon and 1 tablet in the evening. clonazePAM 2-0 Yes [id number] 1mg Take 1 [facility] 1 mg tablet 7-25 tablet by ity of 00:00: mouth in [place] 00 the Medical morning Branch and 1 tablet at noon and 1 tablet in the evening. clonazePAM 2021-0 2022- No [id number] 1mg Take 1 [facility] 1 mg tablet 7-25 09-26 tablet by it y of 00:00: 00:00 mouth in [place] 00 :00 the Medical morning Branch and 1 tablet at noon and 1 tablet in the evening. nirmatrelvi 2021-0 Yes [id number] 3{tbl} Take 3 [facility] r-ritonavir 7-13 tablets by it y of (PAXLOVID, 00:00: mouth in [place] EUA,) 150 00 the Medical mg x 2- 100 morning Branc h mg tablet and 3 tablets in the evening. nirmatrelvi 2021-0 Yes [id number] 3{tbl} Take 3 [facility] r-ritonavir 7-13 tablets by it y of (PAXLOVID, 00:00: mouth in [place] as EUA,) 150 00 the Medical mg x 2- 100 morning Branc h mg tablet and 3 tablets in the evening. nirmatrelvi 2021-0 Yes [id number] 3{tbl} Take 3 [facility] r-ritonavir 7-13 tablets by it y of (PAXLOVID, 00:00: mouth in [place] as EUA,) 150 00 the Medical mg x 2- 100 morning Branc h mg tablet and 3 tablets in the evening. nirnhtrelvi 0 Yes [id number] 3{tbl} Take 3 [facility] r-ritonavir 7-13 tablets by it y of (PAXLOVID, 00:00: mouth in [place] as EUA,) 150 00 the Medical mg x 2- 100 morning Branc h mg tablet and 3 tablets in the evening. nirnhtrelvi 2021-0 Yes [id number] 3{tbl} Take 3 [facility] r-ritonavir 7-13 tablets by it y of (PAXLOVID, 00:00: mouth in [place] as EUA,) 150 00 the Medical mg x 2- 100 morning Branc h mg tablet and 3 tablets in the evening. nirnhtrelvi 0 Yes [id number] 3{tbl} Take 3 [facility] r-ritonavir 7-13 tablets by it y of (PAXLOVID, 00:00: mouth in [place] as EUA,) 150 00 the Medical mg x 2- 100 morning Branc h mg tablet and 3 tablets in the evening. nirnhtrelvi 0 Yes [id number] 3{tbl} Take 3 [facility] r-ritonavir 7-13 tablets by it y of (PAXLOVID, 00:00: mouth in [place] as EUA,) 150 00 the Medical mg x 2- 100 morning Branc h mg tablet and 3 tablets in the evening. nirnhtrelvi 0 Yes [id number] 3{tbl} Take 3 [facility] r-ritonavir 7-13 tablets by it y of (PAXLOVID, 00:00: mouth in [place] as EUA,) 150 00 the Medical mg x 2- 100 morning Branc h mg tablet and 3 tablets in the evening. nirnhtrelvi 2021-0 Yes [id number] 3{tbl} Take 3 [facility] r-ritonavir 7-13 tablets by it y of (PAXLOVID, 00:00: mouth in [place] EUA,) 150 00 the Medical mg x 2- 100 morning Branc h mg tablet and 3 tablets in the evening. nirmatrelvi 0 Yes [id number] 3{tbl} Take 3 [facility] r-ritonavir 7-13 tablets by it y of (PAXLOVID, 00:00: mouth in [place] as EUA,) 150 00 the Medical mg x 2- 100 morning Branc h mg tablet and 3 tablets in the evening. nirnhtrelvi 0 Yes [id number] 3{tbl} Take 3 [facility] r-ritonavir 7-13 tablets by it y of (PAXLOVID, 00:00: mouth in [place] EUA,) 150 00 the Medical mg x 2- 100 morning Branc h mg tablet and 3 tablets in the evening. nirnhtrelvi 0 Yes [id number] 3{tbl} Take 3 [facility] r-ritonavir 7-13 tablets by it y of (PAXLOVID, 00:00: mouth in [place] EUA,) 150 00 the Medical mg x 2- 100 morning Branc [facility] mg tablet and [facility] [id number] 3{tbl} Take 3 [facility] r-ritonavir 7-13 tablets by it y of (PAXLOVID, 00:00: mouth in [place] as EUA,) 150 00 the Medical mg x 2- 100 morning Br[facility] mg tablet and 3 [facility] [id number] 3{tbl} Take 3 [facility] r-ritonavir 7-13 tablets by it y of (PAXLOVID, 00:00: mouth in [place] as EUA,) 150 00 the Medical mg x 2- 100 morning Br[facility] mg tablet and 3 [facility]. [facility] Yes [id number] 3{tbl} Take 3 [facility] r-ritonavir 7-13 tablets by it y of (PAXLOVID, 00:00: mouth in [place] as EUA,) 150 00 the Medical mg x 2- 100 morning Br[facility] mg tablet and 3 tablets [facility] evening. [facility] Yes [id number] 3{tbl} Take 3 [facility] r-ritonavir 7-13 tablets by it y of (PAXLOVID, 00:00: mouth in [place] as EUA,) 150 00 the Medical mg x 2- 100 morning Branc h mg tablet and 3 tablets in the evening. nirmatrelvi 2021-0 Yes [id number] 3{tbl} Take 3 [facility] r-ritonavir 7-13 tablets by it y of (PAXLOVID, 00:00: mouth in [place] EUA,) 150 00 the Medical mg x 2- 100 morning Branc h mg tablet and 3 tablets in the evening. nirmatrelvi 2021-0 Yes [id number] 3{tbl} Take 3 [facility] r-ritonavir 7-13 tablets by it y of (PAXLOVID, 00:00: mouth in [place] as EUA,) 150 00 the Medical mg x 2- 100 morning Branc h mg tablet and 3 tablets in the evening. nirmatrelvi 0 Yes [id number] 3{tbl} Take 3 [facility] r-ritonavir 7-13 tablets by it y of (PAXLOVID, 00:00: mouth in [place] as EUA,) 150 00 the Medical mg x 2- 100 morning Branc h mg tablet and 3 tablets in the evening. nirmatrelvi 2021-0 Yes [id number] 3{tbl} Take 3 [facility] r-ritonavir 7-13 tablets by it y of (PAXLOVID, 00:00: mouth in [place] as EUA,) 150 00 the Medical mg x 2- 100 morning Branc h mg tablet and 3 tablets in the evening. nirmatrelvi 2021- No [id number] 3{tbl} Take 3 [facility] r-ritonavir 7-13 10-21 tablets by i ty of (PAXLOVID, 00:00: 00:00 mouth in [place] EUA,) 150 00 :00 the Medical mg x 2- 100 morning Branc h mg tablet and 3 tablets in the evening. nirmatrelvi 0 2021- No [id number] 3{tbl} Take 3 [facility] r-ritonavir 7-13 10-21 tablets by i ty of (PAXLOVID, 00:00: 00:00 mouth in [place] EUA,) 150 00 :00 the Medical mg x 2- 100 morning Branc h mg tablet and 3 tablets in the evening. nirmatrelvi 0 2022- No [id number] 3{tbl} Take 3 [facility] r-ritonavir 7-13 10-21 tablets by i ty of (PAXLOVID, 00:00: 00:00 mouth in [place] EUA,) 150 00 :00 the Medical mg x 2- 100 morning Branc h mg tablet and 3 tablets in the evening. meloxicam 2021-0 Yes 7.5mg Take 1 [facility] rs 7.5 mg 7-12 tablet by ity of tablet 00:00: mouth in [place] 00 the Medical morning. Branch meloxicam 2021-0 Yes 7.5mg Take 1 [facility] rs 7.5 mg 7-12 tablet by ity of tablet 00:00: mouth in [place] 00 the Medical morning. Branch meloxicam 2021-0 Yes 7.5mg Take 1 [facility] rs 7.5 mg 7-12 tablet by ity of tablet 00:00: mouth in [place] 00 the Medical morning. Branch meloxicam 2021-0 Yes 7.5mg Take 1 [facility] rs 7.5 mg 7-12 tablet by ity of tablet 00:00: mouth in [place] 00 the Medical morning. Branch meloxicam 2021-0 Yes 7.5mg Take 1 [facility] rs 7.5 mg 7-12 tablet by ity of tablet 00:00: mouth in [place] 00 the Medical morning. Branch meloxicam 2021-0 Yes 7.5mg Take 1 [facility] rs 7.5 mg 7-12 tablet by ity of tablet 00:00: mouth in [place] 00 the Medical morning. Branch meloxicam 2-0 Yes 7.5mg Take 1 [facility] rs 7.5 mg 7-12 tablet by ity of tablet 00:00: mouth in [place] 00 the Medical morning. Branch meloxicam 2-0 Yes 7.5mg Take 1 [facility] rs 7.5 mg 7-12 tablet by ity of tablet 00:00: mouth in [place] 00 the Medical morning. Branch meloxicam 2-0 Yes 7.5mg Take 1 [facility] rs 7.5 mg 7-12 tablet by ity of tablet 00:00: mouth in [place] 00 the Medical morning. Branch meloxicam 2-0 Yes 7.5mg Take 1 [facility] rs 7.5 mg 7-12 tablet by ity of tablet 00:00: mouth in [place] 00 the Medical morning. Branch meloxicam 2022-0 Yes 7.5mg Take 1 [facility] rs 7.5 mg 7-12 tablet by ity of tablet 00:00: mouth in [place] 00 the Medical morning. Branch meloxicam 2022-0 Yes 7.5mg Take 1 [facility] rs 7.5 mg 7-12 tablet by ity of tablet 00:00: mouth in [place] 00 the Medical morning. Branch meloxicam 2022-0 Yes 7.5mg Take 1 [facility] rs 7.5 mg 7-12 tablet by ity of tablet 00:00: mouth in [place] 00 the Medical morning. Branch meloxicam 2022-0 Yes 7.5mg Take 1 [facility] rs 7.5 mg 7-12 tablet by ity of tablet 00:00: mouth in [place] the Medical morning. Branch meloxicam 2022-0 Yes 7.5mg Take 1 [facility] rs 7.5 mg 7-12 tablet by ity of tablet 00:00: mouth in [place] the Medical morning. Branch meloxicam 2022-0 Yes 7.5mg Take 1 [facility] rs 7.5 mg 7-12 tablet by ity of tablet 00:00: mouth in [place] the Medical morning. Branch meloxicam 2022-0 Yes 7.5mg Take 1 [facility] rs 7.5 mg 7-12 tablet by ity of tablet 00:00: mouth in [place] the Medical morning. Branch meloxicam 2022-0 Yes 7.5mg Take 1 [facility] rs 7.5 mg 7-12 tablet by ity of tablet 00:00: mouth in [place] the Medical morning. Branch meloxicam 2022-0 Yes 7.5mg Take 1 [facility] rs 7.5 mg 7-12 tablet by ity of tablet 00:00: mouth in [place] 00 the Medical morning. Branch meloxicam 2022-0 Yes 7.5mg Take 1 [facility] rs 7.5 mg 7-12 tablet by ity of tablet 00:00: mouth in [place] 00 the Medical morning. Branch meloxicam 2022-0 Yes 7.5mg Take 1 [facility] rs 7.5 mg 7-12 tablet by ity of tablet 00:00: mouth in [place] 00 the Medical morning. Branch meloxicam 2022-0 Yes 7.5mg Take 1 [facility] rs 7.5 mg 7-12 tablet by ity of tablet 00:00: mouth in [place] 00 the Medical morning. Branch meloxicam 2022-0 Yes 7.5mg Take 1 [facility] rs 7.5 mg 7-12 tablet by ity of tablet 00:00: mouth in [place] the Medical morning. Branch meloxicam 2022-0 Yes 7.5mg Take 1 [facility] rs 7.5 mg 7-12 tablet by ity of tablet 00:00: mouth in [place] 00 the Medical morning. Branch meloxicam 2022-0 Yes 7.5mg Take 1 [facility] rs 7.5 mg 7-12 tablet by ity of tablet 00:00: mouth in [place] 00 the Medical morning. Branch meloxicam 2022-0 Yes 7.5mg Take 1 [facility] rs 7.5 mg 7-12 tablet by ity of tablet 00:00: mouth in [place] the Medical morning. Branch meloxicam 2022-0 Yes 7.5mg Take 1 [facility] rs 7.5 mg 7-12 tablet by ity of tablet 00:00: mouth in [place] the Medical morning. Branch meloxicam 2022-0 Yes 7.5mg Take 1 [facility] rs 7.5 mg 7-12 tablet by ity of tablet 00:00: mouth in [place] the Medical morning. Branch meloxicam 2022-0 Yes 7.5mg Take 1 [facility] rs 7.5 mg 7-12 tablet by ity of tablet 00:00: mouth in [place] the Medical morning. Branch meloxicam 2022-0 Yes 7.5mg Take 1 [facility] rs 7.5 mg 7-12 tablet by ity of tablet 00:00: mouth in [place] 00 the Medical morning. Branch meloxicam 2022-0 Yes 7.5mg Take 1 [facility] rs 7.5 mg 7-12 tablet by ity of tablet 00:00: mouth in [place] 00 the Medical morning. Branch meloxicam 2022-0 Yes 7.5mg Take 1 [facility] rs 7.5 mg 7-12 tablet by ity of tablet 00:00: mouth in [place] 00 the Medical morning. Branch meloxicam 2022-0 Yes 7.5mg Take 1 [facility] rs 7.5 mg 7-12 tablet by ity of tablet 00:00: mouth in [place] 00 the Medical morning. Branch meloxicam 2022-0 Yes 7.5mg Take 1 [facility] rs 7.5 mg 7-12 tablet by ity of tablet 00:00: mouth in [place] 00 the Medical morning. Branch meloxicam 2022-0 Yes 7.5mg Take 1 [facility] rs 7.5 mg 7-12 tablet by ity of tablet 00:00: mouth in [place] the Medical morning. Branch meloxicam 2022-0 Yes 7.5mg Take 1 [facility] rs 7.5 mg 7-12 tablet by ity of tablet 00:00: mouth in [place] 00 the Medical morning. Branch meloxicam 2022-0 Yes 7.5mg Take 1 [facility] rs 7.5 mg 7-12 tablet by ity of tablet 00:00: mouth in [place] the Medical morning. Branch meloxicam 2022-0 Yes 7.5mg Take 1 [facility] rs 7.5 mg 7-12 tablet by ity of tablet 00:00: mouth in [place] 00 the Medical morning. Branch meloxicam 2022-0 Yes 7.5mg Take 1 [facility] rs 7.5 mg 7-12 tablet by ity of tablet 00:00: mouth in [place] the Medical morning. Branch meloxicam 2022-0 Yes 7.5mg Take 1 [facility] rs 7.5 mg 7-12 tablet by ity of tablet 00:00: mouth in [place] the Medical morning. Branch meloxicam 2022-0 Yes 7.5mg Take 1 [facility] rs 7.5 mg 7-12 tablet by ity of tablet 00:00: mouth in [place] the Medical morning. Branch meloxicam 2022-0 Yes 7.5mg Take 1 [facility] rs 7.5 mg 7-12 tablet by ity of tablet 00:00: mouth in [place] 00 the Medical morning. Branch meloxicam 2022-0 Yes 7.5mg Take 1 [facility] rs 7.5 mg 7-12 tablet by ity of tablet 00:00: mouth in [place] 00 the Medical morning. Branch meloxicam 2022-0 Yes 7.5mg Take 1 [facility] rs 7.5 mg 7-12 tablet by ity of tablet 00:00: mouth in [place] 00 the Medical morning. Branch meloxicam 2022-0 Yes 7.5mg Take 1 [facility] rs 7.5 mg 7-12 tablet by ity of tablet 00:00: mouth in [place] 00 the Medical morning. Branch meloxicam 2022-0 Yes 7.5mg Take 1 [facility] rs 7.5 mg 7-12 tablet by ity of tablet 00:00: mouth in [place] 00 the Medical morning. Branch meloxicam 2022-0 Yes 7.5mg Take 1 [facility] rs 7.5 mg 7-12 tablet by ity of tablet 00:00: mouth in [place] 00 the Medical morning. Branch meloxicam 2022-0 Yes 7.5mg Take 1 [facility] rs 7.5 mg 7-12 tablet by ity of tablet 00:00: mouth in [place] the Medical morning. Branch meloxicam 2022-0 Yes 7.5mg Take 1 [facility] rs 7.5 mg 7-12 tablet by ity of tablet 00:00: mouth in [place] the Medical morning. Branch meloxicam 2022-0 Yes 7.5mg Take 1 [facility] rs 7.5 mg 7-12 tablet by ity of tablet 00:00: mouth in [place] the Medical morning. Branch meloxicam 2022-0 Yes 7.5mg Take 1 [facility] rs 7.5 mg 7-12 tablet by ity of tablet 00:00: mouth in [place] the Medical morning. Branch meloxicam 2022-0 Yes 7.5mg Take 1 [facility] rs 7.5 mg 7-12 tablet by ity of tablet 00:00: mouth in [place] the Medical morning. Branch meloxicam 2022-0 Yes 7.5mg Take 1 [facility] rs 7.5 mg 7-12 tablet by ity of tablet 00:00: mouth in [place] the Medical morning. Branch meloxicam 2022-0 Yes 7.5mg Take 1 [facility] rs 7.5 mg 7-12 tablet by ity of tablet 00:00: mouth in [place] the Medical morning. Branch meloxicam 2022-0 Yes 7.5mg Take 1 [facility] rs 7.5 mg 7-12 tablet by ity of tablet 00:00: mouth in [place] 00 the Medical morning. Branch meloxicam 2022-0 Yes 7.5mg Take 1 [facility] rs 7.5 mg 7-12 tablet by ity of tablet 00:00: mouth in [place] 00 the Medical morning. Branch meloxicam 2022-0 Yes 7.5mg Take 1 [facility] rs 7.5 mg 7-12 tablet by ity of tablet 00:00: mouth in [place] the Medical morning. Branch meloxicam 2022-0 Yes 7.5mg Take 1 [facility] rs 7.5 mg 7-12 tablet by ity of tablet 00:00: mouth in [place] the Medical morning. Branch meloxicam 2022-0 Yes 7.5mg Take 1 [facility] rs 7.5 mg 7-12 tablet by ity of tablet 00:00: mouth in [place] the Medical morning. Branch meloxicam 2022-0 Yes 7.5mg Take 1 [facility] rs 7.5 mg 7-12 tablet by ity of tablet 00:00: mouth in [place] the Medical morning. Branch meloxicam 2022-0 Yes 7.5mg Take 1 [facility] rs 7.5 mg 7-12 tablet by ity of tablet 00:00: mouth in [place] the Medical morning. Branch meloxicam 2022-0 Yes 7.5mg Take 1 [facility] rs 7.5 mg 7-12 tablet by ity of tablet 00:00: mouth in [place] the Medical morning. Branch meloxicam 2022-0 Yes 7.5mg Take 1 [facility] rs 7.5 mg 7-12 tablet by ity of tablet 00:00: mouth in [place] the Medical morning. Branch meloxicam 2022-0 Yes 7.5mg Take 1 [facility] rs 7.5 mg 7-12 tablet by ity of tablet 00:00: mouth in [place] the Medical morning. Branch meloxicam 2022-0 Yes 7.5mg Take 1 [facility] rs 7.5 mg 7-12 tablet by ity of tablet 00:00: mouth in [place] the Medical morning. Branch meloxicam 2022-0 Yes 7.5mg Take 1 [facility] rs 7.5 mg 7-12 tablet by ity of tablet 00:00: mouth in [place] the Medical morning. Branch meloxicam 2022-0 Yes 7.5mg Take 1 [facility] rs 7.5 mg 7-12 tablet by ity of tablet 00:00: mouth in [place] the Medical morning. Branch meloxicam 2022-0 Yes 7.5mg Take 1 [facility] rs 7.5 mg 7-12 tablet by ity of tablet 00:00: mouth in [place] the Medical morning. Branch meloxicam 2022-0 Yes 7.5mg Take 1 [facility] rs 7.5 mg 7-12 tablet by ity of tablet 00:00: mouth in [place] the Medical morning. Branch meloxicam 2022-0 Yes 7.5mg Take 1 [facility] rs 7.5 mg 7-12 tablet by ity of tablet 00:00: mouth in [place] the Medical morning. Branch meloxicam 2022-0 Yes 7.5mg Take 1 [facility] rs 7.5 mg 7-12 tablet by ity of tablet 00:00: mouth in [place] the Medical morning. Branch meloxicam 2022-0 Yes 7.5mg Take 1 [facility] rs 7.5 mg 7-12 tablet by ity of tablet 00:00: mouth in [place] the Medical morning. Branch meloxicam 2022-0 Yes 7.5mg Take 1 [facility] rs 7.5 mg 7-12 tablet by ity of tablet 00:00: mouth in [place] the Medical morning. Branch meloxicam 2022-0 Yes 7.5mg Take 1 [facility] rs 7.5 mg 7-12 tablet by ity of tablet 00:00: mouth in [place] the Medical morning. Branch meloxicam 2022-0 Yes 7.5mg Take 1 [facility] rs 7.5 mg 7-12 tablet by ity of tablet 00:00: mouth in [place] the Medical morning. Branch meloxicam 2022-0 Yes 7.5mg Take 1 [facility] rs 7.5 mg 7-12 tablet by ity of tablet 00:00: mouth in [place] the Medical morning. Branch meloxicam 2022-0 Yes 7.5mg Take 1 [facility] rs 7.5 mg 7-12 tablet by ity of tablet 00:00: mouth in [place] the Medical morning. Branch meloxicam 2022-0 Yes 7.5mg Take 1 [facility] rs 7.5 mg 7-12 tablet by ity of tablet 00:00: mouth in [place] 00 the Medical morning. Branch meloxicam 2022-0 Yes 7.5mg Take 1 [facility] rs 7.5 mg 7-12 tablet by ity of tablet 00:00: mouth in [place] 00 the Medical morning. Branch meloxicam 2022-0 Yes 7.5mg Take 1 [facility] rs 7.5 mg 7-12 tablet by ity of tablet 00:00: mouth in [place] 00 the Medical morning. Branch meloxicam 0 Yes 7.5mg Take 1 [facility] rs 7.5 mg 7-12 tablet by ity of tablet 00:00: mouth in [place] the Medical morning. Branch meloxicam 0 Yes 7.5mg Take 1 [facility] rs 7.5 mg 7-12 tablet by ity of tablet 00:00: mouth in [place] the Medical morning. Branch meloxicam 0 Yes 7.5mg Take 1 [facility] rs 7.5 mg 7-12 tablet by ity of tablet 00:00: mouth in [place] the Medical morning. Branch meloxicam 2021-0 Yes 7.5mg Take 1 [facility] rs 7.5 mg 7-12 tablet by ity of tablet 00:00: mouth in [place] the Medical morning. Branch meloxicam Yes 7.5mg Take 1 [facility] rs 7.5 mg 7-12 tablet by ity of tablet 00:00: mouth in [place] the Medical morning. Branch HYDROcodone Yes 2745 [...] Pain. Indication s: chronic pain albuterol Yes [id number] INHALE 2 [facility] 90 7-06 PUFFS BY [facility] of mcg/actuati 00:00: MOUTH [place] on inhaler 00 EVERY 6 Medica l HOURS Branch NEEDED FOR WHEEZING, SHORTNESS OF BREATH OR BRONCHOSPA SMS chlorhexidi Yes [id number] 15mL [facility] and [facility] ne 0.12 % 7-06 spit out ity of mouthwash 00:00: 15 mL 2 [place] 00 (two) Medical times Branch daily. albuterol 2022-0 Yes [id number] INHALE 2 [facility] 90 7-06 PUFFS BY ity of mcg/actuati 00:00: MOUTH [place] on inhaler 00 EVERY 6 Medica l HOURS Branch NEEDED FOR WHEEZING, SHORTNESS OF BREATH OR BRONCHOSPA SMS chlorhexidi 2021-0 Yes [id number] 15mL [facility] and [facility] ne 0.12 % 7-06 spit out ity of mouthwash 00:00: 15 mL 2 [place] 00 (two) Medical times Branch daily. chlorhexidi 2021-0 Yes [id number] 15mL [facility] and [facility] ne 0.12 % 7-06 spit out ity of mouthwash 00:00: 15 mL 2 [place] 00 (two) Medical times Branch daily. chlorhexidi 2021-0 Yes [id number] 15mL [facility] ne 0.12 % 7-06 spit out ity of mouthwash 00:00: 15 mL 2 [place] 00 (two) Medical times Branch daily. chlorhexidi 2021-0 Yes [id number] 15mL [facility] ne 0.12 % 7-06 spit out ity of mouthwash 00:00: 15 mL 2 [place] 00 (two) Medical times Branch daily. chlorhexidi 2021-0 Yes [id number] 15mL [facility] ne 0.12 % 7-06 spit out ity of mouthwash 00:00: 15 mL 2 [place] 00 (two) Medical times Branch daily. chlorhexidi 2021-0 Yes [id number] 15mL [facility] ne 0.12 % 7-06 spit out ity of mouthwash 00:00: 15 mL 2 [place] 00 (two) Medical times Branch daily. chlorhexidi 2021-0 Yes [id number] 15mL [facility] ne 0.12 % 7-06 spit out ity of mouthwash 00:00: 15 mL 2 [place] 00 (two) Medical times Branch daily. chlorhexidi 2-0 Yes [id number] 15mL [facility] ne 0.12 % 7-06 spit out ity of mouthwash 00:00: 15 mL 2 [place] 00 (two) Medical times Branch daily. chlorhexidi 2-0 Yes [id number] 15mL [facility] ne 0.12 % 7-06 spit out ity of mouthwash 00:00: 15 mL 2 [place] 00 (two) Medical times Branch daily. chlorhexidi 2022-0 Yes [id number] 15mL [facility] ne 0.12 % 7-06 spit out ity of mouthwash 00:00: 15 mL 2 [place] 00 (two) Medical times Branch daily. chlorhexidi 2022-0 Yes [id number] 15mL [facility] ne 0.12 % 7-06 spit out ity of mouthwash 00:00: 15 mL 2 [place] 00 (two) Medical times Branch daily. chlorhexidi 2022-0 Yes [id number] 15mL [facility] ne 0.12 % 7-06 spit out ity of mouthwash 00:00: 15 mL 2 [place] 00 (two) Medical times Branch daily. chlorhexidi 2022-0 Yes [id number] 15mL [facility] ne 0.12 % 7-06 spit out ity of mouthwash 00:00: 15 mL 2 [place] 00 (two) Medical times Branch daily. chlorhexidi 2022-0 Yes [id number] 15mL [facility] ne 0.12 % 7-06 spit out ity of mouthwash 00:00: 15 mL 2 [place] 00 (two) Medical times Branch daily. chlorhexidi 2022-0 Yes [id number] 15mL [facility] ne 0.12 % 7-06 spit out ity of mouthwash 00:00: 15 mL 2 [place] 00 (two) Medical times Branch daily. chlorhexidi 2022-0 Yes [id number] 15mL [facility] ne 0.12 % 7-06 spit out ity of mouthwash 00:00: 15 mL 2 [place] 00 (two) Medical times Branch daily. chlorhexidi 2022-0 Yes [id number] 15mL [facility] 0.12 % 7-06 spit out ity of mouthwash 00:00: 15 mL 2 [place] 00 (two) Medical times Branch daily. chlorhexidi 2022-0 Yes [id number] 15mL [facility] ne 0.12 % 7-06 spit out ity of mouthwash 00:00: 15 mL 2 [place] 00 (two) Medical times Branch daily. chlorhexidi 2022-0 Yes [id number] 15mL [facility] ne 0.12 % 7-06 spit out ity of mouthwash 00:00: 15 mL 2 [place] 00 (two) Medical times Branch daily. chlorhexidi 2022-0 Yes [id number] 15mL [facility] ne 0.12 % 7-06 spit out ity of mouthwash 00:00: 15 mL 2 [place] 00 (two) Medical times Branch daily. chlorhexidi 2022-0 Yes [id number] 15mL [facility] ne 0.12 % 7-06 spit out ity of mouthwash 00:00: 15 mL 2 [place] 00 (two) Medical times Branch daily. chlorhexidi 2022-0 Yes [id number] 15mL [facility] ne 0.12 % 7-06 spit out ity of mouthwash 00:00: 15 mL 2 [place] 00 (two) Medical times Branch daily. chlorhexidi 2022-0 Yes [id number] 15mL [facility] ne 0.12 % 7-06 spit out ity of mouthwash 00:00: 15 mL 2 [place] 00 (two) Medical times Branch daily. chlorhexidi 2022-0 Yes [id number] 15mL [facility] ne 0.12 % 7-06 spit out ity of mouthwash 00:00: 15 mL 2 [place] 00 (two) Medical times Branch daily. chlorhexidi 2022-0 Yes [id number] 15mL [facility] ne 0.12 % 7-06 spit out ity of mouthwash 00:00: 15 mL 2 [place] 00 (two) Medical times Branch daily. chlorhexidi 2022-0 Yes [id number] 15mL [facility] ne 0.12 % 7-06 spit out ity of mouthwash 00:00: 15 mL 2 [place] 00 (two) Medical times Branch daily. chlorhexidi 2022-0 Yes [id number] 15mL [facility] ne 0.12 % 7-06 spit out ity of mouthwash 00:00: 15 mL 2 [place] 00 (two) Medical times Branch daily. chlorhexidi 2022-0 Yes [id number] 15mL [facility] ne 0.12 % 7-06 spit out ity of mouthwash 00:00: 15 mL 2 [place] 00 (two) Medical times Branch daily. chlorhexidi 2022-0 Yes [id number] 15mL [facility] ne 0.12 % 7-06 spit out ity of mouthwash 00:00: 15 mL 2 [place] 00 (two) Medical times Branch daily. chlorhexidi 2022-0 Yes [id number] 15mL [facility] ne 0.12 % 7-06 spit out ity of mouthwash 00:00: 15 mL 2 [place] 00 (two) Medical times Branch daily. chlorhexidi 2022-0 Yes [id number] 15mL [facility] ne 0.12 % 7-06 spit out ity of mouthwash 00:00: 15 mL 2 [place] 00 (two) Medical times Branch daily. chlorhexidi 2022-0 Yes [id number] 15mL [facility] ne 0.12 % 7-06 spit out ity of mouthwash 00:00: 15 mL 2 [place] 00 (two) Medical times Branch daily. chlorhexidi 2022-0 Yes [id number] 15mL [facility] ne 0.12 % 7-06 spit out ity of mouthwash 00:00: 15 mL 2 [place] 00 (two) Medical times Branch daily. chlorhexidi 2022-0 Yes [id number] 15mL [facility] ne 0.12 % 7-06 spit out ity of mouthwash 00:00: 15 mL 2 [place] 00 (two) Medical times Branch daily. chlorhexidi 2022-0 Yes [id number] 15mL [facility] ne 0.12 % 7-06 spit out ity of mouthwash 00:00: 15 mL 2 [place] 00 (two) Medical times Branch daily. chlorhexidi 2022-0 Yes [id number] 15mL [facility] ne 0.12 % 7-06 spit out ity of mouthwash 00:00: 15 mL 2 [place] 00 (two) Medical times Branch daily. chlorhexidi 2022-0 Yes [id number] 15mL [facility] ne 0.12 % 7-06 spit out ity of mouthwash 00:00: 15 mL 2 [place] 00 (two) Medical times Branch daily. chlorhexidi 2022-0 Yes [id number] 15mL [facility] ne 0.12 % 7-06 spit out ity of mouthwash 00:00: 15 mL 2 [place] 00 (two) Medical times Branch daily. chlorhexidi 2022-0 Yes [id number] 15mL [facility] ne 0.12 % 7-06 spit out ity of mouthwash 00:00: 15 mL 2 [place] 00 (two) Medical times Branch daily. chlorhexidi 2022-0 Yes [id number] 15mL [facility] ne 0.12 % 7-06 spit out ity of mouthwash 00:00: 15 mL 2 [place] 00 (two) Medical times Branch daily. chlorhexidi 2022-0 Yes [id number] 15mL [facility] ne 0.12 % 7-06 spit out ity of mouthwash 00:00: 15 mL 2 [place] 00 (two) Medical times Branch daily. chlorhexidi 2022-0 Yes [id number] 15mL [facility] ne 0.12 % 7-06 spit out ity of mouthwash 00:00: 15 mL 2 [place] 00 (two) Medical times Branch daily. chlorhexidi 2022-0 Yes [id number] 15mL [facility] ne 0.12 % 7-06 spit out ity of mouthwash 00:00: 15 mL 2 [place] 00 (two) Medical times Branch daily. chlorhexidi 2022-0 Yes [id number] 15mL [facility] ne 0.12 % 7-06 spit out ity of mouthwash 00:00: 15 mL 2 [place] 00 (two) Medical times Branch daily. chlorhexidi 2022-0 Yes [id number] 15mL [facility] ne 0.12 % 7-06 spit out ity of mouthwash 00:00: 15 mL 2 [place] 00 (two) Medical times Branch daily. chlorhexidi 2022-0 Yes [id number] 15mL [facility] ne 0.12 % 7-06 spit out ity of mouthwash 00:00: 15 mL 2 [place] 00 (two) Medical times Branch daily. chlorhexidi 2022-0 Yes [id number] 15mL [facility] ne 0.12 % 7-06 spit out ity of mouthwash 00:00: 15 mL 2 [place] 00 (two) Medical times Branch daily. chlorhexidi 2022-0 Yes [id number] 15mL [facility] ne 0.12 % 7-06 spit out ity of mouthwash 00:00: 15 mL 2 [place] 00 (two) Medical times Branch daily. chlorhexidi 2022-0 Yes [id number] 15mL [facility] ne 0.12 % 7-06 spit out ity of mouthwash 00:00: 15 mL 2 [place] 00 (two) Medical times Branch daily. chlorhexidi 2022-0 Yes [id number] 15mL [facility] ne 0.12 % 7-06 spit out ity of mouthwash 00:00: 15 mL 2 [place] 00 (two) Medical times Branch daily. chlorhexidi 2022-0 Yes [id number] 15mL [facility] ne 0.12 % 7-06 spit out ity of mouthwash 00:00: 15 mL 2 [place] 00 (two) Medical times Branch daily. chlorhexidi 2022-0 Yes [id number] 15mL [facility] ne 0.12 % 7-06 spit out ity of mouthwash 00:00: 15 mL 2 [place] 00 (two) Medical times Branch daily. chlorhexidi 2022-0 Yes [id number] 15mL [facility] ne 0.12 % 7-06 spit out ity of mouthwash 00:00: 15 mL 2 [place] 00 (two) Medical times Branch daily. chlorhexidi 2022-0 Yes [id number] 15mL [facility] ne 0.12 % 7-06 spit out ity of mouthwash 00:00: 15 mL 2 [place] 00 (two) Medical times Branch daily. chlorhexidi 2022-0 Yes [id number] 15mL [facility] ne 0.12 % 7-06 spit out ity of mouthwash 00:00: 15 mL 2 [place] 00 (two) Medical times Branch daily. chlorhexidi 2022-0 Yes [id number] 15mL [facility] ne 0.12 % 7-06 spit out ity of mouthwash 00:00: 15 mL 2 [place] 00 (two) Medical times Branch daily. chlorhexidi 2022-0 Yes [id number] 15mL [facility] ne 0.12 % 7-06 spit out ity of mouthwash 00:00: 15 mL 2 [place] 00 (two) Medical times Branch daily. chlorhexidi 2022-0 Yes [id number] 15mL [facility] ne 0.12 % 7-06 spit out ity of mouthwash 00:00: 15 mL 2 [place] 00 (two) Medical times Branch daily. chlorhexidi 2022-0 Yes [id number] 15mL [facility] ne 0.12 % 7-06 spit out ity of mouthwash 00:00: 15 mL 2 [place] 00 (two) Medical times Branch daily. chlorhexidi 2022-0 Yes [id number] 15mL [facility] ne 0.12 % 7-06 spit out ity of mouthwash 00:00: 15 mL 2 [place] 00 (two) Medical times Branch daily. chlorhexidi 2022-0 Yes [id number] 15mL [facility] ne 0.12 % 7-06 spit out ity of mouthwash 00:00: 15 mL 2 [place] 00 (two) Medical times Branch daily. chlorhexidi 2022-0 Yes [id number] 15mL [facility] ne 0.12 % 7-06 spit out ity of mouthwash 00:00: 15 mL 2 [place] 00 (two) Medical times Branch daily. chlorhexidi 2022-0 Yes [id number] 15mL [facility] ne 0.12 % 7-06 spit out ity of mouthwash 00:00: 15 mL 2 [place] 00 (two) Medical times Branch daily. chlorhexidi 2022-0 Yes [id number] 15mL [facility] ne 0.12 % 7-06 spit out ity of mouthwash 00:00: 15 mL 2 [place] 00 (two) Medical times Branch daily. chlorhexidi 2022-0 Yes [id number] 15mL [facility] ne 0.12 % 7-06 spit out ity of mouthwash 00:00: 15 mL 2 [place] 00 (two) Medical times Branch daily. chlorhexidi 2022-0 Yes [id number] 15mL [facility] ne 0.12 % 7-06 spit out ity of mouthwash 00:00: 15 mL 2 [place] 00 (two) Medical times Branch daily. chlorhexidi 2022-0 Yes [id number] 15mL [facility] ne 0.12 % 7-06 spit out ity of mouthwash 00:00: 15 mL 2 [place] 00 (two) Medical times Branch daily. chlorhexidi 2022-0 Yes [id number] 15mL [facility] ne 0.12 % 7-06 spit out ity of mouthwash 00:00: 15 mL 2 [place] 00 (two) Medical times Branch daily. chlorhexidi 2022-0 Yes [id number] 15mL [facility] ne 0.12 % 7-06 spit out ity of mouthwash 00:00: 15 mL 2 [place] 00 (two) Medical times Branch daily. chlorhexidi 2022-0 Yes [id number] 15mL [facility] ne 0.12 % 7-06 spit out ity of mouthwash 00:00: 15 mL 2 [place] 00 (two) Medical times Branch daily. chlorhexidi 2022-0 Yes [id number] 15mL [facility] ne 0.12 % 7-06 spit out ity of mouthwash 00:00: 15 mL 2 [place] 00 (two) Medical times Branch daily. chlorhexidi 2022-0 Yes [id number] 15mL [facility] ne 0.12 % 7-06 spit out ity of mouthwash 00:00: 15 mL 2 [place] 00 (two) Medical times Branch daily. chlorhexidi 2022-0 Yes [id number] 15mL [facility] ne 0.12 % 7-06 spit out ity of mouthwash 00:00: 15 mL 2 [place] 00 (two) Medical times Branch daily. chlorhexidi 2022-0 Yes [id number] 15mL [facility] ne 0.12 % 7-06 spit out ity of mouthwash 00:00: 15 mL 2 [place] 00 (two) Medical times Branch daily. chlorhexidi 2022-0 Yes [id number] 15mL [facility] ne 0.12 % 7-06 spit out ity of mouthwash 00:00: 15 mL 2 [place] 00 (two) Medical times Branch daily. chlorhexidi 2022-0 Yes [id number] 15mL [facility] ne 0.12 % 7-06 spit out ity of mouthwash 00:00: 15 mL 2 [place] 00 (two) Medical times Branch daily. chlorhexidi 2021-0 Yes [id number] 15mL [facility] ne 0.12 % 7-06 spit out ity of mouthwash 00:00: 15 mL 2 [place] 00 (two) Medical times Branch daily. chlorhexidi 2021-0 Yes [id number] 15mL [facility] ne 0.12 % 7-06 spit out ity of mouthwash 00:00: 15 mL 2 [place] 00 (two) Medical times Branch daily. chlorhexidi 2021-0 Yes [id number] 15mL [facility] ne 0.12 % 7-06 spit out ity of mouthwash 00:00: 15 mL 2 [place] 00 (two) Medical times Branch daily. chlorhexidi 0 Yes [id number] 15mL [facility] ne 0.12 % 7-06 spit out ity of mouthwash 00:00: 15 mL 2 [place] 00 (two) Medical times Branch daily. chlorhexidi 2021-0 Yes [id number] 15mL [facility] ne 0.12 % 7-06 spit out ity of mouthwash 00:00: 15 mL 2 [place] 00 (two) Medical times Branch daily. chlorhexidi 0 Yes [id number] 15mL [facility] ne 0.12 % 7-06 spit out ity of mouthwash 00:00: 15 mL 2 [place] 00 (two) Medical times Branch daily. chlorhexidi 0 Yes [id number] 15mL [facility] ne 0.12 % 7-06 spit out ity of mouthwash 00:00: 15 mL 2 [place] 00 (two) Medical times Branch daily. chlorhexidi 0 Yes [id number] 15mL [facility] ne 0.12 % 7-06 spit out ity of mouthwash 00:00: 15 mL 2 [place] 00 (two) Medical times Branch daily. albuterol 2021- No [id number] INHALE 2 [facility] 90 7 08-24 PUFFS BY ity of mcg/actuati 00:00: 00:[place]TH [place] inhaler 00 :00 EVERY 6 Medica l HOURS Branch NEEDED FOR WHEEZING, SHORTNESS OF BREATH OR BRONCHOSPA SMS Insulin 2021-0 Yes [id number] [facility], 02-02 DIRECTED ity of Disposable, 00:00: FOUR TIMES [place] (BD 00 DAILY. [facility] Medical ULTRAFINE E11.9 Branch III MINI PEN) 31 gauge x 3/16" Ndle Insulin 202-0 Yes [id number] USE [facility], 02-02 DIRECTED ity of Disposable, 00:00: FOUR TIMES [place] (BD 00 DAILY. Dx Medical ULTRAFINE E11.9 Branch III MINI PEN) 31 gauge x 3/16" Ndle Insulin 202-0 Yes [id number] USE [facility], 02-02 DIRECTED ity of Disposable, 00:00: FOUR TIMES [place] (BD 00 DAILY. Dx Medical ULTRAFINE E11.9 Branch III MINI PEN) 31 gauge x 3/16" Ndle Insulin 202-0 Yes [id number] USE [facility], 02-02 DIRECTED ity of Disposable, 00:00: FOUR TIMES [place] (BD 00 DAILY. Dx Medical ULTRAFINE E11.9 Branch III MINI PEN) 31 gauge x 3/16" Ndle Insulin 2021-0 Yes [id number] USE [facility], 02-02 DIRECTED ity of Disposable, 00:00: FOUR TIMES [place] (BD 00 DAILY. Dx Medical ULTRAFINE E11.9 Branch III MINI PEN) 31 gauge x 3/16" Ndle Insulin 202-0 Yes [id number] USE [facility], 02-02 DIRECTED ity of Disposable, 00:00: FOUR TIMES [place] (BD 00 DAILY. Dx Medical ULTRAFINE E11.9 Branch III MINI PEN) 31 gauge x 3/16" Ndle Insulin 2022-0 Yes [id number] USE [facility], 02-02 DIRECTED ity of Disposable, 00:00: FOUR TIMES [place] (BD 00 DAILY. Dx Medical ULTRAFINE E11.9 Branch III MINI PEN) 31 gauge x 3/16" Ndle Insulin 2022-0 Yes [id number] USE [facility], 02-02 DIRECTED ity of Disposable, 00:00: FOUR TIMES [place] (BD 00 DAILY. Dx Medical ULTRAFINE E11.9 Branch III MINI PEN) 31 gauge x 3/16" Ndle Insulin 2022-0 Yes [id number] USE [facility], 02-02 DIRECTED ity of Disposable, 00:00: FOUR TIMES [place] (BD 00 DAILY. Dx Medical ULTRAFINE E11.9 Branch III MINI PEN) 31 gauge x 3/16" Ndle Insulin 2022-0 Yes [id number] USE [facility], 02-02 DIRECTED ity of Disposable, 00:00: FOUR TIMES [place] (BD 00 DAILY. Dx Medical ULTRAFINE E11.9 Branch III MINI PEN) 31 gauge x 3/16" Ndle Insulin 2022-0 Yes [id number] USE [facility], 02-02 DIRECTED ity of Disposable, 00:00: FOUR TIMES [place] (BD 00 DAILY. Dx Medical ULTRAFINE E11.9 Branch III MINI PEN) 31 gauge x 3/16" Ndle Insulin 2022-0 Yes [id number] USE [facility], 02-02 DIRECTED ity of Disposable, 00:00: FOUR TIMES [place] (BD 00 DAILY. Dx Medical ULTRAFINE E11.9 Branch III MINI PEN) 31 gauge x 3/16" Ndle Insulin 2022-0 Yes [id number] USE [facility], 02-02 DIRECTED ity of Disposable, 00:00: FOUR TIMES [place] (BD 00 DAILY. Dx Medical ULTRAFINE E11.9 Branch III MINI PEN) 31 gauge x 3/16" Ndle Insulin 2022-0 Yes [id number] USE [facility], 02-02 DIRECTED ity of Disposable, 00:00: FOUR TIMES [place] (BD 00 DAILY. Dx Medical ULTRAFINE E11.9 Branch III MINI PEN) 31 gauge x 3/16" Ndle Insulin 2022-0 Yes [id number] USE [facility], 02-02 DIRECTED ity of Disposable, 00:00: FOUR TIMES [place] (BD 00 DAILY. Dx Medical ULTRAFINE E11.9 Branch III MINI PEN) 31 gauge x 3/16" Ndle Insulin 2022-0 Yes [id number] USE [facility], 02-02 DIRECTED ity of Disposable, 00:00: FOUR TIMES [place] (BD 00 DAILY. Dx Medical ULTRAFINE E11.9 Branch III MINI PEN) 31 gauge x 3/16" Ndle Insulin 2022-0 Yes [id number] USE [facility], 02-02 DIRECTED ity of Disposable, 00:00: FOUR TIMES [place] (BD 00 DAILY. Dx Medical ULTRAFINE E11.9 Branch III MINI PEN) 31 gauge x 3/16" Ndle Insulin 2022-0 Yes [id number] USE [facility], 02-02 DIRECTED ity of Disposable, 00:00: FOUR TIMES [place] (BD 00 DAILY. Dx Medical ULTRAFINE E11.9 Branch III MINI PEN) 31 gauge x 3/16" Ndle Insulin 2022-0 Yes [id number] USE [facility], 02-02 DIRECTED ity of Disposable, 00:00: FOUR TIMES [place] (BD 00 DAILY. Dx Medical ULTRAFINE E11.9 Branch III MINI PEN) 31 gauge x 3/16" Ndle Insulin 2022-0 Yes [id number] USE [facility], 02-02 DIRECTED ity of Disposable, 00:00: FOUR TIMES [place] (BD 00 DAILY. Dx Medical ULTRAFINE E11.9 Branch III MINI PEN) 31 gauge x 3/16" Ndle Insulin 2022-0 Yes [id number] USE [facility], 02-02 DIRECTED ity of Disposable, 00:00: FOUR TIMES [place] (BD 00 DAILY. Dx Medical ULTRAFINE E11.9 Branch III MINI PEN) 31 gauge x 3/16" Ndle Insulin 2022-0 Yes [id number] USE [facility], 02-02 DIRECTED ity of Disposable, 00:00: FOUR TIMES [place] (BD 00 DAILY. Dx Medical ULTRAFINE E11.9 Branch III MINI PEN) 31 gauge x 3/16" Ndle Insulin 2022-0 Yes [id number] USE [facility], 02-02 DIRECTED ity of Disposable, 00:00: FOUR TIMES [place] (BD 00 DAILY. Dx Medical ULTRAFINE E11.9 Branch III MINI PEN) 31 gauge x 3/16" Ndle Insulin 2022-0 Yes [id number] USE [facility], 02-02 DIRECTED ity of Disposable, 00:00: FOUR TIMES [place] (BD 00 DAILY. Dx Medical ULTRAFINE E11.9 Branch III MINI PEN) 31 gauge x 3/16" Ndle Insulin 2022-0 Yes [id number] USE [facility], 02-02 DIRECTED ity of Disposable, 00:00: FOUR TIMES [place] (BD 00 DAILY. Dx Medical ULTRAFINE E11.9 Branch III MINI PEN) 31 gauge x 3/16" Ndle Insulin 2022-0 Yes [id number] USE [facility], 02-02 DIRECTED ity of Disposable, 00:00: FOUR TIMES [place] (BD 00 DAILY. Dx Medical ULTRAFINE E11.9 Branch III MINI PEN) 31 gauge x 3/16" Ndle Insulin 2022-0 Yes [id number] USE [facility], 02-02 DIRECTED ity of Disposable, 00:00: FOUR TIMES [place] (BD 00 DAILY. Dx Medical ULTRAFINE E11.9 Branch III MINI PEN) 31 gauge x 3/16" Ndle Insulin 2022-0 Yes [id number] USE [facility], 02-02 DIRECTED ity of Disposable, 00:00: FOUR TIMES [place] (BD 00 DAILY. Dx Medical ULTRAFINE E11.9 Branch III MINI PEN) 31 gauge x 3/16" Ndle Insulin 2022-0 Yes [id number] USE [facility], 02-02 DIRECTED ity of Disposable, 00:00: FOUR TIMES [place] (BD 00 DAILY. Dx Medical ULTRAFINE E11.9 Branch III MINI PEN) 31 gauge x 3/16" Ndle Insulin 2022-0 Yes [id number] USE [facility], 02-02 DIRECTED ity of Disposable, 00:00: FOUR TIMES [place] (BD 00 DAILY. Dx Medical ULTRAFINE E11.9 Branch III MINI PEN) 31 gauge x 3/16" Ndle Insulin 2022-0 Yes [id number] USE [facility], 02-02 DIRECTED ity of Disposable, 00:00: FOUR TIMES [place] (BD 00 DAILY. Dx Medical ULTRAFINE E11.9 Branch III MINI PEN) 31 gauge x 3/16" Ndle Insulin 2022-0 Yes [id number] USE [facility], 02-02 DIRECTED ity of Disposable, 00:00: FOUR TIMES [place] (BD 00 DAILY. Dx Medical ULTRAFINE E11.9 Branch III MINI PEN) 31 gauge x 3/16" Ndle Insulin 2022-0 Yes [id number] USE [facility], 02-02 DIRECTED ity of Disposable, 00:00: FOUR TIMES [place] (BD 00 DAILY. Dx Medical ULTRAFINE E11.9 Branch III MINI PEN) 31 gauge x 3/16" Ndle Insulin 2022-0 Yes [id number] USE [facility], 02-02 DIRECTED ity of Disposable, 00:00: FOUR TIMES [place] (BD 00 DAILY. Dx Medical ULTRAFINE E11.9 Branch III MINI PEN) 31 gauge x 3/16" Ndle Insulin 2022-0 Yes [id number] USE [facility], 02-02 DIRECTED ity of Disposable, 00:00: FOUR TIMES [place] (BD 00 DAILY. Dx Medical ULTRAFINE E11.9 Branch III MINI PEN) 31 gauge x 3/16" Ndle Insulin 2022-0 Yes [id number] USE [facility], 7 DIRECTED ity of Disposable, 00:00: FOUR TIMES [place] (BD 00 DAILY. Dx Medical ULTRAFINE E11.9 Branch III MINI PEN) 31 gauge x 3/16" Ndle Insulin 2022-0 Yes [id number] USE [facility], 7 DIRECTED ity of Disposable, 00:00: FOUR TIMES [place] (BD 00 DAILY. Dx Medical ULTRAFINE E11.9 Branch III MINI PEN) 31 gauge x 3/16" Ndle Insulin 2022-0 Yes [id number] USE [facility], 7 DIRECTED ity of Disposable, 00:00: FOUR TIMES [place] (BD 00 DAILY. Dx Medical ULTRAFINE E11.9 Branch III MINI PEN) 31 gauge x 3/16" Ndle Insulin 2022-0 Yes [id number] USE [facility], 7 DIRECTED ity of Disposable, 00:00: FOUR TIMES [place] (BD 00 DAILY. Dx Medical ULTRAFINE E11.9 Branch III MINI PEN) 31 gauge x 3/16" Ndle Insulin 2022-0 Yes [id number] USE [facility], 7 DIRECTED ity of Disposable, 00:00: FOUR TIMES [place] (BD 00 DAILY. Dx Medical ULTRAFINE E11.9 Branch III MINI PEN) 31 gauge x 3/16" Ndle Insulin 2022-0 Yes [id number] USE [facility], 7 DIRECTED ity of Disposable, 00:00: FOUR TIMES [place] (BD 00 DAILY. Dx Medical ULTRAFINE E11.9 Branch III MINI PEN) 31 gauge x 3/16" Ndle Insulin 2022-0 Yes [id number] USE [facility], 7 DIRECTED ity of Disposable, 00:00: FOUR TIMES [place] (BD 00 DAILY. Dx Medical ULTRAFINE E11.9 Branch III MINI PEN) 31 gauge x 3/16" Ndle Insulin 2022-0 Yes [id number] USE [facility], 7 DIRECTED ity of Disposable, 00:00: FOUR TIMES [place] (BD 00 DAILY. Dx Medical ULTRAFINE E11.9 Branch III MINI PEN) 31 gauge x 3/16" Ndle Insulin 2022-0 Yes [id number] USE [facility], 02-02 DIRECTED ity of Disposable, 00:00: FOUR TIMES [place] (BD 00 DAILY. Dx Medical ULTRAFINE E11.9 Branch III MINI PEN) 31 gauge x 3/16" Ndle Insulin 2022-0 Yes [id number] USE [facility], 02-02 DIRECTED ity of Disposable, 00:00: FOUR TIMES [place] (BD 00 DAILY. Dx Medical ULTRAFINE E11.9 Branch III MINI PEN) 31 gauge x 3/16" Ndle Insulin 2022-0 Yes [id number] USE [facility], 02-02 DIRECTED ity of Disposable, 00:00: FOUR TIMES [place] (BD 00 DAILY. Dx Medical ULTRAFINE E11.9 Branch III MINI PEN) 31 gauge x 3/16" Ndle Insulin 2022-0 Yes [id number] USE [facility], 02-02 DIRECTED ity of Disposable, 00:00: FOUR TIMES [place] (BD 00 DAILY. Dx Medical ULTRAFINE E11.9 Branch III MINI PEN) 31 gauge x 3/16" Ndle Insulin 2022-0 Yes [id number] USE [facility], 02-02 DIRECTED ity of Disposable, 00:00: FOUR TIMES [place] (BD 00 DAILY. Dx Medical ULTRAFINE E11.9 Branch III MINI PEN) 31 gauge x 3/16" Ndle Insulin 2022-0 Yes [id number] USE [facility], 02-02 DIRECTED ity of Disposable, 00:00: FOUR TIMES [place] (BD 00 DAILY. Dx Medical ULTRAFINE E11.9 Branch III MINI PEN) 31 gauge x 3/16" Ndle Insulin 2022-0 Yes [id number] USE [facility], 02-02 DIRECTED ity of Disposable, 00:00: FOUR TIMES [place] (BD 00 DAILY. Dx Medical ULTRAFINE E11.9 Branch III MINI PEN) 31 gauge x 3/16" Ndle Insulin 2022-0 Yes [id number] USE [facility], 02-02 DIRECTED ity of Disposable, 00:00: FOUR TIMES [place] (BD 00 DAILY. Dx Medical ULTRAFINE E11.9 Branch III MINI PEN) 31 gauge x 3/16" Ndle Insulin 2022-0 Yes [id number] USE [facility], 02-02 DIRECTED ity of Disposable, 00:00: FOUR TIMES [place] (BD 00 DAILY. Dx Medical ULTRAFINE E11.9 Branch III MINI PEN) 31 gauge x 3/16" Ndle Insulin 2022-0 Yes [id number] USE [facility], 02-02 DIRECTED ity of Disposable, 00:00: FOUR TIMES [place] (BD 00 DAILY. Dx Medical ULTRAFINE E11.9 Branch III MINI PEN) 31 gauge x 3/16" Ndle Insulin 2022-0 Yes [id number] USE [facility], 02-02 DIRECTED ity of Disposable, 00:00: FOUR TIMES [place] (BD 00 DAILY. Dx Medical ULTRAFINE E11.9 Branch III MINI PEN) 31 gauge x 3/16" Ndle Insulin 2022-0 Yes [id number] USE [facility], 02-02 DIRECTED ity of Disposable, 00:00: FOUR TIMES [place] (BD 00 DAILY. Dx Medical ULTRAFINE E11.9 Branch III MINI PEN) 31 gauge x 3/16" Ndle Insulin 2022-0 Yes [id number] USE [facility], 02-02 DIRECTED ity of Disposable, 00:00: FOUR TIMES [place] (BD 00 DAILY. Dx Medical ULTRAFINE E11.9 Branch III MINI PEN) 31 gauge x 3/16" Ndle Insulin 2022-0 Yes [id number] USE [facility], 02-02 DIRECTED ity of Disposable, 00:00: FOUR TIMES [place] (BD 00 DAILY. Dx Medical ULTRAFINE E11.9 Branch III MINI PEN) 31 gauge x 3/16" Ndle Insulin 2022-0 Yes [id number] USE [facility], 02-02 DIRECTED ity of Disposable, 00:00: FOUR TIMES [place] (BD 00 DAILY. Dx Medical ULTRAFINE E11.9 Branch III MINI PEN) 31 gauge x 3/16" Ndle Insulin 2022-0 Yes [id number] USE [facility], 02-02 DIRECTED ity of Disposable, 00:00: FOUR TIMES [place] (BD 00 DAILY. Dx Medical ULTRAFINE E11.9 Branch III MINI PEN) 31 gauge x 3/16" Ndle Insulin 2022-0 Yes [id number] USE [facility], 02-02 DIRECTED ity of Disposable, 00:00: FOUR TIMES [place] (BD 00 DAILY. Dx Medical ULTRAFINE E11.9 Branch III MINI PEN) 31 gauge x 3/16" Ndle Insulin 2022-0 Yes [id number] USE [facility], 02-02 DIRECTED ity of Disposable, 00:00: FOUR TIMES [place] (BD 00 DAILY. Dx Medical ULTRAFINE E11.9 Branch III MINI PEN) 31 gauge x 3/16" Ndle Insulin 2022-0 Yes [id number] USE [facility], 02-02 DIRECTED ity of Disposable, 00:00: FOUR TIMES [place] (BD 00 DAILY. Dx Medical ULTRAFINE E11.9 Branch III MINI PEN) 31 gauge x 3/16" Ndle Insulin 2022-0 Yes [id number] USE [facility], 02-02 DIRECTED ity of Disposable, 00:00: FOUR TIMES [place] (BD 00 DAILY. Dx Medical ULTRAFINE E11.9 Branch III MINI PEN) 31 gauge x 3/16" Ndle Insulin 2022-0 Yes [id number] USE [facility], 02-02 DIRECTED ity of Disposable, 00:00: FOUR TIMES [place] (BD 00 DAILY. Dx Medical ULTRAFINE E11.9 Branch III MINI PEN) 31 gauge x 3/16" Ndle Insulin 2022-0 Yes [id number] USE [facility], 02-02 DIRECTED ity of Disposable, 00:00: FOUR TIMES [place] (BD 00 DAILY. Dx Medical ULTRAFINE E11.9 Branch III MINI PEN) 31 gauge x 3/16" Ndle Insulin 2022-0 Yes [id number] USE [facility], 02-02 DIRECTED ity of Disposable, 00:00: FOUR TIMES [place] (BD 00 DAILY. Dx Medical ULTRAFINE E11.9 Branch III MINI PEN) 31 gauge x 3/16" Ndle Insulin 2022-0 Yes [id number] USE [facility] [place], 02-02 DIRECTED ity of Disposable, 00:00: FOUR TIMES [place] (BD 00 DAILY. [facility] ULTRAFINE E11.9 Branch III MINI PEN) 31 gauge x 3/16" Ndle Insulin 2022-0 Yes [id number] USE [facility] [place], 02-02 DIRECTED ity of Disposable, 00:00: FOUR TIMES [place] (BD 00 DAILY. [facility] ULTRAFINE E11.9 Branch III MINI PEN) 31 gauge x 3/16" Ndle Insulin 2022-0 Yes [id number] USE [facility] [place], 02-02 DIRECTED ity of Disposable, 00:00: FOUR TIMES [place] (BD 00 DAILY. Dx Medical ULTRAFINE E11.9 Branch III MINI PEN) 31 gauge x 3/16" Ndle Insulin 2022-0 Yes [id number] USE [facility] [place], 02-02 DIRECTED ity of Disposable, 00:00: FOUR TIMES [place] (BD 00 DAILY. Dx Medical ULTRAFINE E11.9 Branch III MINI PEN) 31 gauge x 3/16" Ndle Insulin 2022-0 Yes [id number] USE [facility] [place], 02-02 DIRECTED ity of Disposable, 00:00: FOUR TIMES [place] (BD 00 DAILY. Dx Medical ULTRAFINE E11.9 Branch III MINI PEN) 31 gauge x 3/16" Ndle Insulin 2022-0 Yes [id number] USE [facility] [place], 02-02 DIRECTED ity of Disposable, 00:00: FOUR TIMES [place] (BD 00 DAILY. Dx Medical ULTRAFINE E11.9 Branch III MINI PEN) 31 gauge x 3/16" Ndle Insulin 2022-0 Yes [id number] USE [facility] [place], 02-02 DIRECTED ity of Disposable, 00:00: FOUR TIMES [place] (BD 00 DAILY. Dx Medical ULTRAFINE E11.9 Branch III MINI PEN) 31 gauge x 3/16" Ndle Insulin 2022-0 Yes [id number] USE [facility] [place], 02-02 DIRECTED ity of Disposable, 00:00: FOUR TIMES [place] (BD 00 DAILY. Dx Medical ULTRAFINE E11.9 Branch III MINI PEN) 31 gauge x 3/16" Ndle Insulin 2022-0 Yes [id number] USE [facility] [place], 02-02 DIRECTED ity of Disposable, 00:00: FOUR TIMES [place] (BD 00 DAILY. Dx Medical ULTRAFINE E11.9 Branch III MINI PEN) 31 gauge x 3/16" Ndle Insulin 2022-0 Yes [id number] USE [facility] [place], 02-02 DIRECTED ity of Disposable, 00:00: FOUR TIMES [place] (BD 00 DAILY. Dx Medical ULTRAFINE E11.9 Branch III MINI PEN) 31 gauge x 3/16" Ndle Insulin 2022-0 Yes [id number] USE [facility] [place], 02-02 DIRECTED ity of Disposable, 00:00: FOUR TIMES [place] (BD 00 DAILY. Dx Medical ULTRAFINE E11.9 Branch III MINI PEN) 31 gauge x 3/16" Ndle Insulin 2022-0 Yes [id number] USE [facility] [place], 02-02 DIRECTED ity of Disposable, 00:00: FOUR TIMES [place] (BD 00 DAILY. Dx Medical ULTRAFINE E11.9 Branch III MINI PEN) 31 gauge x 3/16" Ndle Insulin 2022-0 Yes [id number] USE [facility] [place], 7- DIRECTED ity of Disposable, 00:00: FOUR TIMES [place] (BD 00 DAILY. Dx Medical ULTRAFINE E11.9 Branch III MINI PEN) 31 gauge x 3/16" Ndle Insulin 2022-0 Yes [id number] USE [facility] [place], 7- DIRECTED ity of Disposable, 00:00: FOUR TIMES [place] (BD 00 DAILY. Dx Medical ULTRAFINE E11.9 Branch III MINI PEN) 31 gauge x 3/16" Ndle Insulin 2022-0 Yes [id number] USE [facility] [place], 7 DIRECTED ity of Disposable, 00:00: FOUR TIMES [place] (BD 00 DAILY. Dx Medical ULTRAFINE E11.9 Branch III MINI PEN) 31 gauge x 3/16" Ndle Insulin 2022-0 Yes [id number] USE [facility] [place], 7 DIRECTED ity of Disposable, 00:00: FOUR TIMES [place] (BD 00 DAILY. Dx Medical ULTRAFINE E11.9 Branch III MINI PEN) 31 gauge x 3/16" Ndle Insulin 2022-0 Yes [id number] USE [facility] [place], 7 DIRECTED ity of Disposable, 00:00: FOUR TIMES [place] (BD 00 DAILY. Dx Medical ULTRAFINE E11.9 Branch III MINI PEN) 31 gauge x 3/16" Ndle Insulin 2022-0 Yes [id number] USE [facility] [place], 7 DIRECTED ity of Disposable, 00:00: FOUR TIMES [place] (BD 00 DAILY. Dx Medical ULTRAFINE E11.9 Branch III MINI PEN) 31 gauge x 3/16" Ndle Insulin 2022-0 Yes [id number] USE [facility] [place], 7- DIRECTED ity of Disposable, 00:00: FOUR TIMES [place] (BD 00 DAILY. Dx Medical ULTRAFINE E11.9 Branch III MINI PEN) 31 gauge x 3/16" Ndle TRESIBA 2022-0 Yes [id number] ADMINISTER [facility] FLEXTOUCH 6-26 62 UNITS ity of U-200 200 00:00: UNDER THE [place] [facility] unit/mL (3 00 SKIN THREE Med ical mL) InPn TIMES Branch DAILY TRESIBA 2022-0 Yes [id number] ADMINISTER [facility] FLEXTOUCH 6-26 62 UNITS ity of U-200 200 00:00: UNDER THE [place] [facility] unit/mL (3 00 SKIN THREE Med ical mL) InPn TIMES Branch DAILY TRESIBA Yes [id number] ADMINISTER [facility] FLEXTOUCH 6-26 62 UNITS ity of U-200 200 00:00: UNDER THE [place] [facility] unit/mL (3 00 SKIN THREE Med ical mL) InPn TIMES Branch DAILY TRESIBA Yes [id number] ADMINISTER [facility] FLEXTOUCH 6-26 62 UNITS ity of U-200 200 00:00: UNDER THE [place] [facility] unit/mL (3 00 SKIN THREE Med ical mL) InPn TIMES Branch DAILY TRESIBA Yes [id number] ADMINISTER [facility] FLEXTOUCH 6-26 62 UNITS ity of U-200 200 00:00: UNDER THE [place] [facility] unit/mL (3 00 SKIN THREE Med ical mL) InPn TIMES Branch DAILY TRESIBA Yes [id number] ADMINISTER [facility] FLEXTOUCH 6-26 62 UNITS ity of U-200 200 00:00: UNDER THE [place] [facility] unit/mL (3 00 SKIN THREE Med ical mL) InPn TIMES Branch DAILY TRESIBA Yes [id number] ADMINISTER [facility] FLEXTOUCH 6-26 62 UNITS ity of U-200 200 00:00: UNDER THE [place] [facility] unit/mL (3 00 SKIN THREE Med ical mL) InPn TIMES Branch DAILY TRESIBA Yes [id number] ADMINISTER [facility] FLEXTOUCH 6-26 62 UNITS ity of U-200 200 00:00: UNDER THE [place] [facility] unit/mL (3 00 SKIN THREE Med ical mL) InPn TIMES Branch DAILY TRESIBA Yes [id number] ADMINISTER [facility] FLEXTOUCH 6-26 62 UNITS ity of U-200 200 00:00: UNDER THE [place] [facility] unit/mL (3 00 SKIN THREE Med ical mL) InPn TIMES Branch DAILY TRESIBA Yes [id number] ADMINISTER [facility] FLEXTOUCH 6-26 62 UNITS ity of U-200 200 00:00: UNDER THE [place] [facility] unit/mL (3 00 SKIN THREE Med ical mL) InPn TIMES Branch DAILY TRESIBA Yes [id number] ADMINISTER [facility] FLEXTOUCH 6-26 62 UNITS ity of U-200 200 00:00: UNDER THE [place] [facility] unit/mL (3 00 SKIN THREE Med ical mL) InPn TIMES Branch DAILY TRESIBA Yes [id number] ADMINISTER [facility] FLEXTOUCH 6-26 62 UNITS ity of U-200 200 00:00: UNDER THE [place] [facility] unit/mL (3 00 SKIN THREE Med ical mL) InPn TIMES Branch DAILY TRESIBA Yes [id number] ADMINISTER [facility] FLEXTOUCH 6-26 62 UNITS ity of U-200 200 00:00: UNDER THE [place] [facility] unit/mL (3 00 SKIN THREE Med ical mL) InPn TIMES Branch DAILY TRESIBA Yes [id number] ADMINISTER [facility] FLEXTOUCH 6-26 62 UNITS ity of U-200 200 00:00: UNDER THE [place] [facility] unit/mL (3 00 SKIN THREE Med ical mL) InPn TIMES Branch DAILY TRESIBA Yes [id number] ADMINISTER [facility] FLEXTOUCH 6-26 62 UNITS ity of U-200 200 00:00: UNDER THE [place] [facility] unit/mL (3 00 SKIN THREE Med ical mL) InPn TIMES Branch DAILY TRESIBA Yes [id number] ADMINISTER [facility] FLEXTOUCH 6-26 62 UNITS ity of U-200 200 00:00: UNDER THE [place] [facility] unit/mL (3 00 SKIN THREE Med ical mL) InPn TIMES Branch DAILY TRESIBA Yes [id number] ADMINISTER [facility] FLEXTOUCH 6-26 62 UNITS ity of U-200 200 00:00: UNDER THE [place] [facility] unit/mL (3 00 SKIN THREE Med ical mL) InPn TIMES Branch DAILY TRESIBA Yes [id number] ADMINISTER [facility] FLEXTOUCH 6-26 62 UNITS ity of U-200 200 00:00: UNDER THE [place] [facility] unit/mL (3 00 SKIN THREE Med ical mL) InPn TIMES Branch DAILY TRESIBA Yes [id number] ADMINISTER [facility] FLEXTOUCH 6-26 62 UNITS ity of U-200 200 00:00: UNDER THE [place] [facility] unit/mL (3 00 SKIN THREE Med ical mL) InPn TIMES Branch DAILY TRESIBA Yes [id number] ADMINISTER [facility] FLEXTOUCH 6-26 62 UNITS ity of U-200 200 00:00: UNDER THE [place] [facility] unit/mL (3 00 SKIN THREE Med ical mL) InPn TIMES Branch DAILY TRESIBA Yes [id number] ADMINISTER [facility] FLEXTOUCH 6-26 62 UNITS ity of U-200 200 00:00: UNDER THE [place] [facility] unit/mL (3 00 SKIN THREE Med ical mL) InPn TIMES Branch DAILY TRESIBA Yes [id number] ADMINISTER [facility] FLEXTOUCH 6-26 62 UNITS ity of U-200 200 00:00: UNDER THE [place] [facility] unit/mL (3 00 SKIN THREE Med ical mL) InPn TIMES Branch DAILY TRESIBA Yes [id number] ADMINISTER [facility] FLEXTOUCH 6-26 62 UNITS ity of U-200 200 00:00: UNDER THE [place] [facility] unit/mL (3 00 SKIN THREE Med ical mL) InPn TIMES Branch DAILY TRESIBA Yes [id number] ADMINISTER [facility] FLEXTOUCH 6-26 62 UNITS ity of U-200 200 00:00: UNDER THE [place] [facility] unit/mL (3 00 SKIN THREE Med ical mL) InPn TIMES Branch DAILY TRESIBA Yes [id number] ADMINISTER [facility] FLEXTOUCH 6-26 62 UNITS ity of U-200 200 00:00: UNDER THE [place] [facility] unit/mL (3 00 SKIN THREE Med ical mL) InPn TIMES Branch DAILY TRESIBA Yes [id number] ADMINISTER [facility] FLEXTOUCH 6-26 62 UNITS ity of U-200 200 00:00: UNDER THE [place] [facility] unit/mL (3 00 SKIN THREE Med ical mL) InPn TIMES Branch DAILY TRESIBA Yes [id number] ADMINISTER [facility] FLEXTOUCH 6-26 62 UNITS ity of U-200 200 00:00: UNDER THE [place] [facility] unit/mL (3 00 SKIN THREE Med ical mL) InPn TIMES Branch DAILY TRESIBA Yes [id number] ADMINISTER [facility] FLEXTOUCH 6-26 62 UNITS ity of U-200 200 00:00: UNDER THE [place] [facility] unit/mL (3 00 SKIN THREE Med ical mL) InPn TIMES Branch DAILY TRESIBA Yes [id number] ADMINISTER [facility] FLEXTOUCH 6-26 62 UNITS ity of U-200 200 00:00: UNDER THE [place] [facility] unit/mL (3 00 SKIN THREE Med ical mL) InPn TIMES Branch DAILY TRESIBA Yes [id number] ADMINISTER [facility] FLEXTOUCH 6-26 62 UNITS ity of U-200 200 00:00: UNDER THE [place] [facility] unit/mL (3 00 SKIN THREE Med ical mL) InPn TIMES Branch DAILY TRESIBA Yes [id number] ADMINISTER [facility] FLEXTOUCH 6-26 62 UNITS ity of U-200 200 00:00: UNDER THE [place] [facility] unit/mL (3 00 SKIN THREE Med ical mL) InPn TIMES Branch DAILY TRESIBA Yes [id number] ADMINISTER [facility] FLEXTOUCH 6-26 62 UNITS ity of U-200 200 00:00: UNDER THE [place] [facility] unit/mL (3 00 SKIN THREE Med ical mL) InPn TIMES Branch DAILY TRESIBA Yes [id number] ADMINISTER [facility] FLEXTOUCH 6-26 62 UNITS ity of U-200 200 00:00: UNDER THE [place] [facility] unit/mL (3 00 SKIN THREE Med ical mL) InPn TIMES Branch DAILY TRESIBA 2021- No [id number] ADMINISTER [facility] FLEXTOUCH 6-26 11-03 62 UNITS ity o f U-200 200 00:00: 00:00 UNDER THE [place] unit/mL (3 00 :00 SKIN THREE Med ical mL) InPn TIMES Branch DAILY VERAPAMIL Yes [id number] 240mg TAKE 1 U nivers 240 mg 24 5-31 CAPSULE BY ity of hr capsule 00:00: MOUTH [place] 00 DAILY Medical Branch VERAPAMIL 2021-0 Yes [id number] 240mg TAKE 1 U nivers 240 mg 24 5-31 CAPSULE BY ity of hr capsule 00:00: MOUTH [place] 00 DAILY Medical Branch VERAPAMIL 2021-0 Yes [id number] 240mg TAKE 1 U nivers 240 mg 24 5-31 CAPSULE BY ity of hr capsule 00:00: MOUTH [place] 00 DAILY Medical Branch VERAPAMIL 2021-0 2021- No [id number] 240mg TAKE 1 [facility] 240 mg 24 5-31 08-29 CAPSULE BY ity of hr capsule 00:00: 00:00 MOUTH [place] 00 :00 DAILY Medical Branch mupirocin 2 Yes [id number] Apply to [facility] % ointment 5-25 area(s) 3 ity of 00:00: (three) [place] 00 times Medical daily. Branch mupirocin 2 2-0 Yes [id number] Apply to [facility] % ointment 5-25 area(s) 3 ity of 00:00: (three) [place] 00 times Medical daily. Branch mupirocin 2 2-0 Yes [id number] Apply to [facility] % ointment 5-25 area(s) 3 ity of 00:00: (three) [place] 00 times Medical daily. Branch mupirocin 2 2021-0 Yes [id number] Apply to [facility] % ointment 5-25 area(s) 3 ity of 00:00: (three) [place] 00 times Medical daily. Branch mupirocin 2 2-0 Yes [id number] Apply to [facility] % ointment 5-25 area(s) 3 ity of 00:00: (three) [place] 00 times Medical daily. Branch mupirocin 2 2021-0 Yes [id number] Apply to [facility] % ointment 5-25 area(s) 3 ity of 00:00: (three) [place] 00 times Medical daily. Branch mupirocin 2 2021-0 Yes [id number] Apply to [facility] % ointment 5-25 area(s) 3 ity of 00:00: (three) [place] 00 times Medical daily. Branch mupirocin 2 2021-0 Yes [id number] Apply to [facility] % ointment 5-25 area(s) 3 ity of 00:00: (three) [place] 00 times Medical daily. Branch mupirocin 2 2-0 Yes [id number] Apply to [facility] % ointment 5-25 area(s) 3 ity of 00:00: (three) [place] 00 times Medical daily. Branch mupirocin 2 2-0 Yes [id number] Apply to [facility] % ointment 5-25 area(s) 3 ity of 00:00: (three) [place] 00 times Medical daily. Branch mupirocin 2 2-0 Yes [id number] Apply to [facility] % ointment 5-25 area(s) 3 ity of 00:00: (three) [place] 00 times Medical daily. Branch mupirocin 2 2-0 Yes [id number] Apply to [facility] % ointment 5-25 area(s) 3 ity of 00:00: (three) [place] 00 times Medical daily. Branch mupirocin 2 2021-0 Yes [id number] Apply to [facility] % ointment 5-25 area(s) 3 ity of 00:00: (three) [place] 00 times Medical daily. Branch mupirocin 2 2021-0 Yes [id number] Apply to [facility] % ointment 5-25 area(s) 3 ity of 00:00: (three) [place] 00 times Medical daily. Branch mupirocin 2 2021-0 Yes [id number] Apply to [facility] % ointment 5-25 area(s) 3 ity of 00:00: (three) [place] 00 times Medical daily. Branch mupirocin 2 2021-0 Yes [id number] Apply to [facility] % ointment 5-25 area(s) 3 ity of 00:00: (three) [place] 00 times Medical daily. Branch mupirocin 2 2021-0 Yes [id number] Apply to [facility] % ointment 5-25 area(s) 3 ity of 00:00: (three) [place] 00 times Medical daily. Branch mupirocin 2 2021-0 Yes [id number] Apply to [facility] % ointment 5-25 area(s) 3 ity of 00:00: (three) [place] 00 times Medical daily. Branch mupirocin 2 2021-0 Yes [id number] Apply to [facility] % ointment 5-25 area(s) 3 ity of 00:00: (three) [place] 00 times Medical daily. Branch mupirocin 2 2021-0 Yes [id number] Apply to [facility] % ointment 5-25 area(s) 3 ity of 00:00: (three) [place] 00 times Medical daily. Branch mupirocin 2 2-0 Yes [id number] Apply to [facility] % ointment 5-25 area(s) 3 ity of 00:00: (three) [place] 00 times Medical daily. Branch mupirocin 2 2-0 Yes [id number] Apply to [facility] % ointment 5-25 area(s) 3 ity of 00:00: (three) [place] 00 times Medical daily. Branch mupirocin 2 2-0 Yes [id number] Apply to [facility] % ointment 5-25 area(s) 3 ity of 00:00: (three) [place] 00 times Medical daily. Branch mupirocin 2 2021-0 Yes [id number] Apply to [facility] % ointment 5-25 area(s) 3 ity of 00:00: (three) [place] 00 times Medical daily. Branch mupirocin 2 2021-0 Yes [id number] Apply to [facility] % ointment 5-25 area(s) 3 ity of 00:00: (three) [place] 00 times Medical daily. Branch mupirocin 2 2021-0 Yes [id number] Apply to [facility] % ointment 5-25 area(s) 3 ity of 00:00: (three) [place] 00 times Medical daily. Branch mupirocin 2 2021-0 Yes [id number] Apply to [facility] % ointment 5-25 area(s) 3 ity of 00:00: (three) [place] 00 times Medical daily. Branch mupirocin 2 2021-0 Yes [id number] Apply to [facility] % ointment 5-25 area(s) 3 ity of 00:00: (three) [place] 00 times Medical daily. Branch mupirocin 2 2021-0 Yes [id number] Apply to [facility] % ointment 5-25 area(s) 3 ity of 00:00: (three) [place] 00 times Medical daily. Branch mupirocin 2 2021-0 Yes [id number] Apply to [facility] % ointment 5-25 area(s) 3 ity of 00:00: (three) [place] 00 times Medical daily. Branch mupirocin 2 2021-0 Yes [id number] Apply to [facility] % ointment 5-25 area(s) 3 ity of 00:00: (three) [place] 00 times Medical daily. Branch mupirocin 2 2-0 Yes [id number] Apply to [facility] % ointment 5-25 area(s) 3 ity of 00:00: (three) [place] 00 times Medical daily. Branch mupirocin 2 2-0 Yes [id number] Apply to [facility] % ointment 5-25 area(s) 3 ity of 00:00: (three) [place] 00 times Medical daily. Branch mupirocin 2 2-0 Yes [id number] Apply to [facility] % ointment 5-25 area(s) 3 ity of 00:00: (three) [place] 00 times Medical daily. Branch mupirocin 2 2-0 Yes [id number] Apply to [facility] % ointment 5-25 area(s) 3 ity of 00:00: (three) [place] 00 times Medical daily. Branch mupirocin 2 2021-0 Yes [id number] Apply to [facility] % ointment 5-25 area(s) 3 ity of 00:00: (three) [place] 00 times Medical daily. Branch mupirocin 2 2021-0 Yes [id number] Apply to [facility] % ointment 5-25 area(s) 3 ity of 00:00: (three) [place] 00 times Medical daily. Branch mupirocin 2 2021-0 Yes [id number] Apply to [facility] % ointment 5-25 area(s) 3 ity of 00:00: (three) [place] 00 times Medical daily. Branch mupirocin 2 2021-0 Yes [id number] Apply to [facility] % ointment 5-25 area(s) 3 ity of 00:00: (three) [place] 00 times Medical daily. Branch mupirocin 2 2021-0 Yes [id number] Apply to [facility] % ointment 5-25 area(s) 3 ity of 00:00: (three) [place] 00 times Medical daily. Branch mupirocin 2 2021-0 Yes [id number] Apply to [facility] % ointment 5-25 area(s) 3 ity of 00:00: (three) [place] 00 times Medical daily. Branch mupirocin 2 2-0 Yes [id number] Apply to [facility] % ointment 5-25 area(s) 3 ity of 00:00: (three) [place] 00 times Medical daily. Branch mupirocin 2 2-0 Yes [id number] Apply to [facility] % ointment 5-25 area(s) 3 ity of 00:00: (three) [place] 00 times Medical daily. Branch mupirocin 2 2-0 Yes [id number] Apply to [facility] % ointment 5-25 area(s) 3 ity of 00:00: (three) [place] 00 times Medical daily. Branch mupirocin 2 2021-0 Yes [id number] Apply to [facility] % ointment 5-25 area(s) 3 ity of 00:00: (three) [place] 00 times Medical daily. Branch mupirocin 2 2021-0 Yes [id number] Apply to [facility] % ointment 5-25 area(s) 3 ity of 00:00: (three) [place] 00 times Medical daily. Branch mupirocin 2 2021-0 Yes [id number] Apply to [facility] % ointment 5-25 area(s) 3 ity of 00:00: (three) [place] 00 times Medical daily. Branch mupirocin 2 2021-0 Yes [id number] Apply to [facility] % ointment 5-25 area(s) 3 ity of 00:00: (three) [place] 00 times Medical daily. Branch mupirocin 2 2021-0 Yes [id number] Apply to [facility] % ointment 5-25 area(s) 3 ity of 00:00: (three) [place] 00 times Medical daily. Branch mupirocin 2 2021-0 Yes [id number] Apply to [facility] % ointment 5-25 area(s) 3 ity of 00:00: (three) [place] 00 times Medical daily. Branch mupirocin 2 2021-0 2- No [id number] Apply to [facility] % ointment 5-25 11-28 area(s) 3 ity of 00:00: 00:00 (three) [place] 00 :00 times Medical daily. Branch mupirocin 2 2021-0 2022- No [id number] Apply to [facility] % ointment 5-25 11-28 [...] mouth [place] 40 daily. Medical Branch ketoconazol 2021-0 Yes [id number] Apply to [facility] e 2 % 5-10 area(s) ity of shampoo 00:00: once daily [place] 00 as needed Medical for Branch Itching. ketoconazol 2021-0 Yes [id number] Apply to [facility] e 2 % 5-10 area(s) ity of shampoo 00:00: once daily [place] 00 as needed Medical for Branch Itching. ketoconazol 2021-0 Yes [id number] Apply to [facility] e 2 % 5-10 area(s) ity of shampoo 00:00: once daily [place] 00 as needed Medical for Branch Itching. ketoconazol 0 Yes [id number] Apply to [facility] e 2 % 5-10 area(s) ity of shampoo 00:00: once daily [place] 00 as needed Medical for Branch Itching. ketoconazol 0 Yes [id number] Apply to [facility] e 2 % 5-10 area(s) ity of shampoo 00:00: once daily [place] 00 as needed Medical for Branch Itching. ketoconazol 0 Yes [id number] Apply to Univers e 2 % 5-10 area(s) ity of shampoo 00:00: once daily [place] 00 as needed Medical for Branch Itching. ketoconazol 0 Yes [id number] Apply to [facility] e 2 % 5-10 area(s) ity of shampoo 00:00: once daily [place] 00 as needed Medical for Branch Itching. ketoconazol 0 Yes [id number] Apply to [facility] e 2 % 5-10 area(s) ity of shampoo 00:00: once daily [place] 00 as needed Medical for Branch Itching. ketoconazol 0 Yes [id number] Apply to [facility] e 2 % 5-10 area(s) ity of shampoo 00:00: once daily [place] 00 as needed Medical for Branch Itching. ketoconazol 0 Yes [id number] Apply to [facility] e 2 % 5-10 area(s) ity of shampoo 00:00: once daily [place] 00 as needed Medical for Branch Itching. ketoconazol 0 Yes [id number] Apply to [facility] e 2 % 5-10 area(s) ity of shampoo 00:00: once daily [place] 00 as needed [facility] for Branch Itching. ketoconazol 0 Yes [id number] Apply to [facility] e 2 % 5-10 area(s) ity of shampoo 00:00: once daily [place] 00 as needed Medical for Branch Itching. ketoconazol 0 Yes [id number] Apply to [facility] e 2 % 5-10 area(s) ity of shampoo 00:00: once daily [place] 00 as needed Medical for Branch Itching. ketoconazol Yes [id number] Apply to [facility] e 2 % 5-10 area(s) ity of shampoo 00:00: once daily [place] 00 as needed Medical for Branch Itching. ketoconazol Yes [id number] Apply to [facility] e 2 % 5-10 area(s) ity of shampoo 00:00: once daily [place] 00 as needed Medical for Branch Itching. ketoconazol Yes [id number] Apply to [facility] e 2 % 5-10 area(s) ity of shampoo 00:00: once daily [place] 00 as needed Medical for Branch Itching. ketoconazol Yes [id number] Apply to [facility] e 2 % 5-10 area(s) ity of shampoo 00:00: once daily [place] 00 as needed Medical for Branch Itching. ketoconazol Yes [id number] Apply to [facility] e 2 % 5-10 area(s) ity of shampoo 00:00: once daily [place] 00 as needed Medical for Branch Itching. ketoconazol Yes [id number] Apply to [facility] e 2 % 5-10 area(s) ity of shampoo 00:00: once daily [place] 00 as needed Medical for Branch Itching. ketoconazol 0 Yes [id number] Apply to [facility] e 2 % 5-10 area(s) ity of shampoo 00:00: once daily [place] 00 as needed Medical for Branch Itching. ketoconazol Yes [id number] Apply to [facility] e 2 % 5-10 area(s) ity of shampoo 00:00: once daily [place] 00 as needed Medical for Branch Itching. ketoconazol 0 Yes [id number] Apply to [facility] e 2 % 5-10 area(s) ity of shampoo 00:00: once daily [place] 00 as needed Medical for Branch Itching. ketoconazol 0 Yes [id number] Apply to [facility] e 2 % 5-10 area(s) ity of shampoo 00:00: once daily [place] 00 as needed Medical for Branch Itching. ketoconazol Yes [id number] Apply to [facility] e 2 % 5-10 area(s) ity of shampoo 00:00: once daily [place] 00 as needed Medical for Branch Itching. ketoconazol Yes [id number] Apply to [facility] e 2 % 5-10 area(s) ity of shampoo 00:00: once daily [place] 00 as needed Medical for Branch Itching. ketoconazol 0 Yes [id number] Apply to [facility] e 2 % 5-10 area(s) ity of shampoo 00:00: once daily [place] 00 as needed Medical for Branch Itching. ketoconazol Yes [id number] Apply to [facility] e 2 % 5-10 area(s) ity of shampoo 00:00: once daily [place] 00 as needed Medical for Branch Itching. ketoconazol Yes [id number] Apply to [facility] e 2 % 5-10 area(s) ity of shampoo 00:00: once daily [place] 00 as needed Medical for Branch Itching. ketoconazol Yes [id number] Apply to [facility] e 2 % 5-10 area(s) ity of shampoo 00:00: once daily [place] 00 as needed Medical for Branch Itching. ketoconazol Yes [id number] Apply to [facility] e 2 % 5-10 area(s) ity of shampoo 00:00: once daily [place] 00 as needed Medical for Branch Itching. ketoconazol 0 Yes [id number] Apply to [facility] e 2 % 5-10 area(s) ity of shampoo 00:00: once daily [place] 00 as needed Medical for Branch Itching. ketoconazol 0 Yes [id number] Apply to [facility] e 2 % 5-10 area(s) ity of shampoo 00:00: once daily [place] 00 as needed Medical for Branch Itching. ketoconazol 0 Yes [id number] Apply to [facility] e 2 % 5-10 area(s) ity of shampoo 00:00: once daily [place] 00 as needed Medical for Branch Itching. ketoconazol 0 Yes [id number] Apply to [facility] e 2 % 5-10 area(s) ity of shampoo 00:00: once daily [place] 00 as needed Medical for Branch Itching. ketoconazol 0 Yes [id number] Apply to [facility] e 2 % 5-10 area(s) ity of shampoo 00:00: once daily [place] 00 as needed Medical for Branch Itching. ketoconazol 0 Yes [id number] Apply to [facility] e 2 % 5-10 area(s) ity of shampoo 00:00: once daily [place] 00 as needed Medical for Branch Itching. ketoconazol 0 Yes [id number] Apply to [facility] e 2 % 5-10 area(s) ity of shampoo 00:00: once daily [place] 00 as needed Medical for Branch Itching. ketoconazol 0 Yes [id number] Apply to [facility] e 2 % 5-10 area(s) ity of shampoo 00:00: once daily [place] 00 as needed Medical for Branch Itching. ketoconazol 0 Yes [id number] Apply to [facility] e 2 % 5-10 area(s) ity of shampoo 00:00: once daily [place] 00 as needed Medical for Branch Itching. ketoconazol 0 Yes [id number] Apply to [facility] e 2 % 5-10 area(s) ity of shampoo 00:00: once daily [place] 00 as needed Medical for Branch Itching. ketoconazol 0 Yes [id number] Apply to [facility] e 2 % 5-10 area(s) ity of shampoo 00:00: once daily [place] 00 as needed Medical for Branch Itching. ketoconazol 0 Yes [id number] Apply to [facility] e 2 % 5-10 area(s) ity of shampoo 00:00: once daily [place] 00 as needed Medical for Branch Itching. ketoconazol 2021-0 Yes [id number] Apply to [facility] e 2 % 5-10 area(s) ity of shampoo 00:00: once daily [place] 00 as needed Medical for Branch Itching. ketoconazol 2021-0 Yes [id number] Apply to [facility] e 2 % 5-10 area(s) ity of shampoo 00:00: once daily [place] 00 as needed Medical for Branch Itching. ketoconazol 0 Yes [id number] Apply to [facility] e 2 % 5-10 area(s) ity of shampoo 00:00: once daily [place] 00 as needed Medical for Branch Itching. ketoconazol 0 Yes [id number] Apply to [facility] e 2 % 5-10 area(s) ity of shampoo 00:00: once daily [place] 00 as needed Medical for Branch Itching. ketoconazol 0 Yes [id number] Apply to [facility] e 2 % 5-10 area(s) ity of shampoo 00:00: once daily [place] 00 as needed Medical for Branch Itching. ketoconazol 0 Yes [id number] Apply to [facility] e 2 % 5-10 area(s) ity of shampoo 00:00: once daily [place] 00 as needed Medical for Branch Itching. ketoconazol 0 Yes [id number] Apply to [facility] e 2 % 5-10 area(s) ity of shampoo 00:00: once daily [place] 00 as needed [facility] Itching. ketoconazol 0 Yes [id number] Apply to [facility] 2 % 5-10 area(s) ity of shampoo 00:00: once daily [place] 00 as needed [facility] Itching. ketoconazol 0 Yes [id number] Apply to [facility] 2 % 5-10 area(s) ity of shampoo 00:00: once daily [place] 00 as needed [facility] Itching. ketoconazol 0 Yes [id number] Apply to [facility] 2 % 5-10 area(s) ity of shampoo 00:00[place] 00 [place] needed Medical for Branch Itching. ketoconazol 0 Yes [id number] [facility] to [facility]-10 area[facility]:[place] Medical for [facility] Itching. ketoconazol 2021-0 Yes [id number] Apply to [facility] 2 % 5-10 area(s) [facility] shampoo 00:[place]: [place] 00 [place] needed Medical for Branch Itching. ketoconazol Yes [id number] Apply to [facility] 2 % 5-10 area(s) [facility]y of shampoo 00:00: [place] 00 [place] needed Medical for Branch Itching. ketoconazol 0 Yes [id number] Apply to [facility] 2 % 5-10 area(s) ity of shampoo 00:00: [place] 00 [place] needed Medical for Branch Itching. ketoconazol 0 Yes [id number] Apply to [facility] 2 % 5-10 area(s) ity of shampoo 00:00: [place] 00 [place] needed Medical for Branch Itching. ketoconazol 0 Yes [id number] Apply to [facility] 2 % 5-10 area(s) [facility]y of shampoo 00:00: [place] 00 [place] needed Medical for Branch Itching. ketoconazol Yes [id number] Apply to [facility] 2 % 5-10 area(s) ity of shampoo 00:00: [place] 00 [place] needed Medical for Branch Itching. ketoconazol Yes [id number] Apply to [facility] 2 % 5-10 area(s) ity of shampoo 00:00: [place] needed Medical for Branch Itching. ketoconazol 0 Yes [id number] Apply to [facility] 2 % 5-10 area(s) ity of shampoo 00:00: once daily [place] 00 [place] needed Medical for Branch Itching. ketoconazol 0 Yes [id number] Apply to [facility] 2 % 5-10 area(s) ity of shampoo 00:00: once daily [place] 00 [place] needed Medical for Branch Itching. ketoconazol 0 Yes [id number] Apply to [facility] 2 % 5-10 area(s) ity of shampoo 00:00: once daily [place] 00 [place] needed Medical for Branch Itching. ketoconazol 0 Yes [id number] Apply to [facility] 2 % 5-10 area(s) ity of shampoo 00:00: once daily [place] 00 as needed Medical for Branch Itching. ketoconazol Yes [id number] Apply to [facility] 2 % 5-10 area(s) ity of shampoo 00:00: once daily [place] 00 [place] needed Medical for Branch Itching. ketoconazol 0 Yes [id number] Apply to [facility] 2 % 5-10 area(s) ity of shampoo 00:00: once daily [place] 00 [place] needed Medical for Branch Itching. ketoconazol Yes [id number] Apply to [facility] 2 % 5-10 area(s) ity of shampoo 00:00: once daily [place] 00 as needed Medical for Branch Itching. ketoconazol Yes [id number] Apply to [facility] 2 % 5-10 area(s) ity of shampoo 00:00: once daily [place] 00 as needed Medical for Branch Itching. ketoconazol Yes [id number] Apply to [facility] 2 % 5-10 area(s) ity of shampoo 00:00: once daily [place] 00 [place] needed Medical for Branch Itching. ketoconazol Yes [id number] Apply to [facility] 2 % 5-10 area(s) ity of shampoo 00:00: once daily [place] 00 as needed Medical for Branch Itching. ketoconazol 0 Yes [id number] Apply to [facility] 2 % 5-10 area(s) ity of shampoo 00:00: once daily [place] 00 as needed Medical for Branch Itching. ketoconazol Yes [id number] Apply to [facility] e 2 % 5-10 area(s) ity of shampoo 00:00: once daily [place] 00 as needed Medical for Branch Itching. ketoconazol 0 Yes [id number] Apply to [facility] e 2 % 5-10 area(s) ity of shampoo 00:00: once daily [place] 00 as needed Medical for Branch Itching. ketoconazol 0 Yes [id number] Apply to [facility] e 2 % 5-10 area(s) ity of shampoo 00:00: once daily [place] 00 as needed Medical for Branch Itching. ketoconazol 0 Yes [id number] Apply to [facility] e 2 % 5-10 area(s) ity of shampoo 00:00: once daily [place] 00 as needed Medical for Branch Itching. ketoconazol 0 Yes [id number] Apply to [facility] e 2 % 5-10 area(s) ity of shampoo 00:00: once daily [place] 00 as needed Medical for Branch Itching. ketoconazol 0 Yes [id number] Apply to [facility] e 2 % 5-10 area(s) ity of shampoo 00:00: once daily [place] 00 as needed Medical for Branch Itching. ketoconazol 0 Yes [id number] Apply to [facility] e 2 % 5-10 area(s) ity of shampoo 00:00: once daily [place] 00 as needed Medical for Branch Itching. ketoconazol 0 Yes [id number] Apply to [facility] e 2 % 5-10 area(s) ity of shampoo 00:00: once daily [place] 00 as needed Medical for Branch Itching. ketoconazol Yes [id number] Apply to [facility] e 2 % 5-10 area(s) ity of shampoo 00:00: once daily [place] 00 as needed Medical for Branch Itching. ketoconazol 0 Yes [id number] Apply to [facility] e 2 % 5-10 area(s) ity of shampoo 00:00: once daily [place] 00 as needed Medical for Branch Itching. ketoconazol 0 Yes [id number] Apply to [facility] e 2 % 5-10 area(s) ity of shampoo 00:00: once daily [place] 00 as needed Medical for Branch Itching. ketoconazol 0 Yes [id number] Apply to [facility] e 2 % 5-10 area(s) ity of shampoo 00:00: once daily [place] 00 as needed Medical for Branch Itching. ketoconazol 0 Yes [id number] Apply to [facility] e 2 % 5-10 area(s) ity of shampoo 00:00: once daily [place] 00 as needed Medical for Branch Itching. ketoconazol 0 Yes [id number] Apply to [facility] e 2 % 5-10 area(s) ity of shampoo 00:00: once daily [place] 00 [place] needed Medical for Branch Itching. METFORMIN 2022-0 Yes [id number] TAKE 1 [facility] 850 mg 5-02 TABLET BY ity of tablet 00:00: MOUTH THREE Medical TIMES Branch DAILY METFORMIN 2022-0 Yes [id number] TAKE 1 [facility] 850 mg 5-02 TABLET BY ity of tablet 00:00: MOUTH THREE Medical TIMES Branch DAILY METFORMIN 2022-0 Yes [id number] TAKE 1 [facility] 850 mg 5-02 TABLET BY ity of tablet 00:00: MOUTH THREE Medical TIMES Branch DAILY METFORMIN 2022-0 Yes [id number] TAKE 1 [facility] 850 mg 5-02 TABLET BY ity of tablet 00:00: THREE Medical TIMES Branch DAILY METFORMIN 2022-0 Yes [id number] TAKE 1 [facility] 850 mg 5-02 TABLET BY ity of tablet 00:00: THREE Medical TIMES Branch DAILY METFORMIN 2022-0 Yes [id number] TAKE 1 [facility] 850 mg 5-02 TABLET BY ity of tablet 00:00: MOUTH THREE Medical TIMES Branch DAILY METFORMIN 2022-0 Yes [id number] TAKE 1 [facility] 850 mg 5-02 TABLET BY ity of tablet 00:00: MOUTH THREE Medical TIMES Branch DAILY METFORMIN 2022-0 Yes [id number] TAKE 1 [facility] 850 mg 5-02 TABLET BY ity of tablet 00:00: [facility] THREE Medical TIMES Branch DAILY METFORMIN 2022-0 Yes [id number] TAKE 1 U nivers 850 mg 5-02 TABLET BY ity of tablet 00:00: MOUTH THREE Medical TIMES Branch DAILY METFORMIN 2022-0 Yes [id number] TAKE 1 [facility] 850 mg 5-02 TABLET BY ity of tablet 00:00: MOUTH THREE Medical TIMES Branch DAILY METFORMIN 2022-0 Yes [id number] TAKE 1 [facility] 850 mg 5-02 TABLET BY ity of tablet 00:00: MOUTH THREE Medical TIMES Branch DAILY METFORMIN 2022-0 Yes [id number] TAKE 1 [facility] 850 mg 5-02 TABLET BY ity of tablet 00:00: MOUTH THREE Medical TIMES Branch DAILY METFORMIN 2022-0 Yes [id number] TAKE 1 [facility] 850 mg 5-02 TABLET BY ity of tablet 00:00: MOUTH [place] 00 THREE Medical TIMES Branch DAILY METFORMIN 2022-0 Yes [id number] TAKE 1 [facility] nivers 850 mg 5-02 TABLET BY ity of tablet 00:00: MOUTH [place] 00 THREE Medical TIMES Branch DAILY METFORMIN 2022-0 Yes [id number] TAKE 1 [facility] nivers 850 mg 5-02 TABLET BY ity of tablet 00:00: [facility] THREE Medical TIMES Branch DAILY METFORMIN 2022-0 Yes [id number] TAKE 1 U nivers 850 mg 5-02 TABLET BY ity of tablet 00:00: MOUTH [place] 00 THREE Medical TIMES Branch DAILY METFORMIN 2-0 Yes [id number] TAKE 1 [facility] nivers 850 mg 5-02 TABLET BY ity of tablet 00:00: [facility] THREE Medical TIMES Branch DAILY METFORMIN 2022-0 Yes [id number] TAKE 1 [facility] nivers 850 mg 5-02 TABLET BY ity of tablet 00:00: [facility] THREE Medical TIMES Branch DAILY METFORMIN 2022-0 Yes [id number] TAKE 1 [facility] nivers 850 mg 5-02 TABLET BY ity of tablet 00:00: MOUTH [place] THREE Medical TIMES Branch DAILY METFORMIN 2022-0 Yes [id number] TAKE 1 [facility]ivers 850 mg 5-02 TABLET BY ity of tablet 00:00: [facility] 00 THREE Medical TIMES Branch DAILY METFORMIN 2022-0 2022- No [id number] TAKE 1 [facility] 850 mg 5-02 10-21 TABLET BY ity of tablet 00:00: 00:00 [facility] 00 :00 THREE Medical TIMES Branch DAILY METFORMIN 2022-0 2022- No [id number] TAKE 1 [facility] 850 mg 5-02 10-21 TABLET BY ity of tablet 00:00: 00:00 [facility] 00 :00 THREE Medical TIMES Branch DAILY METFORMIN 2022-0 2022- No [id number] TAKE 1 [facility] 850 mg 5-02 10-21 TABLET BY ity of tablet 00:00: 00:00 [facility] 00 :00 THREE Medical TIMES Branch DAILY METFORMIN 2022-0 2022- No [id number] TAKE 1 [facility] 850 mg 5-02 10-21 TABLET BY ity of tablet 00:00: 00:00 [facility] 00 :00 THREE Medical TIMES Branch DAILY lancets 33 2021-0 Yes Use as Unive rs gauge [facility] 4-25 directed ity o f 00:00: twice [...] for Medical E11.9 Branch lancets 33 2-0 2023- No Use as Univ ers gauge Misc 4-25 09-02 directed ity of 00:00: 00:00 twice a [place] 00 :00 day for Medical E11.9 Branch gabapentin 2022-0 Yes [id number] TAKE 1 [facility] 300 mg 4-11 CAPSULE BY ity of capsule 00:00: MOUTH FOUR [place] 00 TIMES Medical DAILY Branch gabapentin 2022-0 Yes [id number] TAKE 1 [facility] 300 mg 4-11 CAPSULE BY ity of capsule 00:00: MOUTH FOUR [place] 00 TIMES Medical DAILY Branch gabapentin 2022-0 Yes [id number] TAKE 1 [facility] 300 mg 4-11 CAPSULE BY ity of capsule 00:00: MOUTH FOUR [place] 00 TIMES Medical DAILY Branch gabapentin 2022-0 Yes [id number] TAKE 1 [facility] 300 mg 4-11 CAPSULE BY ity of capsule 00:00: MOUTH FOUR [place] 00 TIMES Medical DAILY Branch gabapentin 2022-0 Yes [id number] TAKE 1 [facility] 300 mg 4-11 CAPSULE BY ity of capsule 00:00: MOUTH FOUR [place] 00 TIMES Medical DAILY Branch gabapentin 2022-0 Yes [id number] TAKE 1 [facility] 300 mg 4-11 CAPSULE BY ity of capsule 00:00: MOUTH FOUR [place] 00 TIMES Medical DAILY Branch gabapentin 2022-0 Yes [id number] TAKE 1 [facility] 300 mg 4-11 CAPSULE BY ity of capsule 00:00: MOUTH FOUR [place] 00 TIMES Medical DAILY Branch gabapentin 2022-0 Yes [id number] TAKE 1 [facility] 300 mg 4-11 CAPSULE BY ity of capsule 00:00: MOUTH FOUR [place] 00 TIMES Medical DAILY Branch gabapentin 2022-0 Yes [id number] TAKE 1 [facility] 300 mg 4-11 CAPSULE BY ity of capsule 00:00: MOUTH FOUR [place] 00 TIMES Medical DAILY Branch gabapentin 2022-0 2022- No [id number] TAKE 1 [facility] 300 mg 4-11 04-29 CAPSULE BY ity of capsule 00:00: 00:00 MOUTH FOUR [place] 00 :00 TIMES Medical DAILY Branch TRUE METRIX 2022-0 Yes [id number] Use as Univers GLUCOSE 3-16 directed ity of METER Kit 00:00: for 4 [place] times a Medical day Branch glucose check, ICD E11.9 TRUE METRIX 2021-0 Yes [id number] Use as [facility] GLUCOSE 3-16 directed ity of TEST STRIP 00:00: to check [place] strip 00 blood Medical sugar QID Branch DX: E11.9 TRUE METRIX 2-0 Yes [id number] Use as [facility] GLUCOSE 3-16 directed ity of METER Kit 00:00: for 4 [place] times a Medical day Branch glucose check, ICD E11.9 TRUE METRIX 2022-0 Yes [id number] Use as [facility] GLUCOSE 3-16 directed ity of TEST STRIP 00:00: to check [place] strip 00 blood Medical sugar QID Branch DX: E11.9 TRUE METRIX 2022-0 Yes [id number] Use as Univers GLUCOSE 3-16 directed ity of METER Kit 00:00: for 4 [place] times a Medical day Branch glucose check, ICD E11.9 TRUE METRIX 2022-0 Yes [id number] Use as [facility] GLUCOSE 3-16 directed ity of TEST STRIP 00:00: to check [place] as strip 00 blood Medical sugar QID Branch DX: E11.9 TRUE METRIX 2022-0 Yes [id number] Use as [facility] GLUCOSE 3-16 directed ity of METER Kit 00:00: for 4 [place] 00 times a Medical day Branch glucose check, ICD E11.9 TRUE METRIX 2022-0 Yes [id number] Use as Univers GLUCOSE 3-16 directed ity of TEST STRIP 00:00: to check [place] as strip 00 blood Medical sugar QID Branch DX: E11.9 TRUE METRIX 2022-0 Yes [id number] Use as Univers GLUCOSE 3-16 directed ity of METER Kit 00:00: for 4 [place] 00 times a Medical day Branch glucose check, ICD E11.9 TRUE METRIX 2022-0 Yes [id number] Use as Univers GLUCOSE 3-16 directed ity of TEST STRIP 00:00: to check [place] as strip 00 blood Medical sugar QID Branch DX: E11.9 TRUE METRIX 2022-0 Yes [id number] Use as Univers GLUCOSE 3-16 directed ity of METER Kit 00:00: for 4 [place] 00 times a Medical day Branch glucose check, ICD E11.9 TRUE METRIX 2022-0 Yes [id number] Use as Univers GLUCOSE 3-16 directed ity of TEST STRIP 00:00: to check [place] as strip 00 blood Medical sugar QID Branch DX: E11.9 TRUE METRIX 2022-0 Yes [id number] Use as Univers GLUCOSE 3-16 directed ity of METER Kit 00:00: for 4 [place] 00 times a Medical day Branch glucose check, ICD E11.9 TRUE METRIX 2022-0 Yes [id number] Use as Univers GLUCOSE 3-16 directed ity of TEST STRIP 00:00: to check [place] as strip 00 blood Medical sugar QID Branch DX: E11.9 TRUE METRIX 2022-0 Yes [id number] Use as Univers GLUCOSE 3-16 directed ity of METER Kit 00:00: for 4 [place] 00 times a Medical day Branch glucose check, ICD E11.9 TRUE METRIX 2022-0 Yes [id number] Use as Univers GLUCOSE 3-16 directed ity of TEST STRIP 00:00: to check [place] as strip 00 blood Medical sugar QID Branch DX: E11.9 TRUE METRIX 2022-0 Yes [id number] Use as Univers GLUCOSE 3-16 directed ity of METER Kit 00:00: for 4 [place] 00 times a Medical day Branch glucose check, ICD E11.9 TRUE METRIX 2022-0 Yes [id number] Use as Univers GLUCOSE 3-16 directed ity of TEST STRIP 00:00: to check [place] as strip 00 blood Medical sugar QID Branch DX: E11.9 TRUE METRIX 2022-0 Yes [id number] Use as Univers GLUCOSE 3-16 directed ity of METER Kit 00:00: for 4 [place] 00 times a Medical day Branch glucose check, ICD E11.9 TRUE METRIX 2022-0 Yes [id number] Use as Univers GLUCOSE 3-16 directed ity of TEST STRIP 00:00: to check [place] as strip 00 blood Medical sugar QID Branch DX: E11.9 TRUE METRIX 2022-0 Yes [id number] Use as Univers GLUCOSE 3-16 directed ity of METER Kit 00:00: for 4 [place] 00 times a Medical day Branch glucose check, ICD E11.9 TRUE METRIX 2022-0 Yes [id number] Use as Univers GLUCOSE 3-16 directed ity of TEST STRIP 00:00: to check [place] as strip 00 blood Medical sugar D Branch DX: E11.9 TRUE METRIX 2022-0 Yes [id number] Use as Univers GLUCOSE 3-16 directed ity of METER Kit 00:00: for 4 [place] 00 times a Medical day Branch glucose check, ICD E11.9 TRUE METRIX 2-0 Yes [id number] Use as Univers GLUCOSE 3-16 directed ity of TEST STRIP 00:00: to check [place] as strip 00 blood Medical sugar QID Branch DX: E11.9 TRUE METRIX 2022-0 Yes [id number] Use as Univers GLUCOSE 3-16 directed ity of METER Kit 00:00: for 4 [place] 00 times a Medical day Branch glucose check, ICD E11.9 TRUE METRIX 2022-0 Yes [id number] Use as Univers GLUCOSE 3-16 directed ity of TEST STRIP 00:00: to check [place] as strip 00 blood Medical sugar QID Branch DX: E11.9 TRUE METRIX 2022-0 Yes [id number] Use as Univers GLUCOSE 3-16 directed ity of METER Kit 00:00: for 4 [place] 00 times a Medical day Branch glucose check, ICD E11.9 TRUE METRIX 2022-0 Yes [id number] Use as Univers GLUCOSE 3-16 directed ity of TEST STRIP 00:00: to check [place] as strip 00 blood Medical sugar D Branch DX: E11.9 TRUE METRIX 2022-0 Yes [id number] Use as Univers GLUCOSE 3-16 directed ity of METER Kit 00:00: for 4 [place] 00 times a Medical day Branch glucose check, ICD E11.9 TRUE METRIX 2022-0 Yes [id number] Use as Univers GLUCOSE 3-16 directed ity of TEST STRIP 00:00: to check [place] as strip 00 blood Medical sugar QID Branch DX: E11.9 TRUE METRIX 2022-0 Yes [id number] Use as Univers GLUCOSE 3-16 directed ity of METER Kit 00:00: for 4 [place] 00 times a Medical day Branch glucose check, ICD E11.9 TRUE METRIX 2022-0 Yes [id number] Use as Univers GLUCOSE 3-16 directed ity of TEST STRIP 00:00: to check [place] as strip 00 blood Medical sugar QID Branch DX: E11.9 TRUE METRIX 2022-0 Yes [id number] Use as Univers GLUCOSE 3-16 directed ity of METER Kit 00:00: for 4 [place] 00 times a Medical day Branch glucose check, ICD E11.9 TRUE METRIX 2022-0 Yes [id number] Use as Univers GLUCOSE 3-16 directed ity of TEST STRIP 00:00: to check [place] as strip 00 blood Medical sugar QID Branch DX: E11.9 TRUE METRIX 2022-0 Yes [id number] Use as Univers GLUCOSE 3-16 directed ity of METER Kit 00:00: for 4 [place] 00 times a Medical day Branch glucose check, ICD E11.9 TRUE METRIX 2022-0 Yes [id number] Use as Univers GLUCOSE 3-16 directed ity of TEST STRIP 00:00: to check [place] as strip 00 blood Medical sugar QID Branch DX: E11.9 TRUE METRIX 2022-0 Yes [id number] Use as Univers GLUCOSE 3-16 directed ity of METER Kit 00:00: for 4 [place] 00 times a Medical day Branch glucose check, ICD E11.9 TRUE METRIX 2022-0 Yes [id number] Use as Univers GLUCOSE 3-16 directed ity of TEST STRIP 00:00: to check [place] as strip 00 blood Medical sugar QID Branch DX: E11.9 TRUE METRIX 2022-0 Yes [id number] Use as Univers GLUCOSE 3-16 directed ity of METER Kit 00:00: for 4 [place] 00 times a Medical day Branch glucose check, ICD E11.9 TRUE METRIX 2022-0 Yes [id number] Use as Univers GLUCOSE 3-16 directed ity of TEST STRIP 00:00: to check [place] as strip 00 blood Medical sugar QID Branch DX: E11.9 TRUE METRIX 2022-0 Yes [id number] Use as Univers GLUCOSE 3-16 directed ity of METER Kit 00:00: for 4 [place] 00 times a Medical day Branch glucose check, ICD E11.9 TRUE METRIX 2022-0 Yes [id number] Use as Univers GLUCOSE 3-16 directed ity of TEST STRIP 00:00: to check [place] as strip 00 blood Medical sugar QID Branch DX: E11.9 TRUE METRIX 2022-0 Yes [id number] Use as Univers GLUCOSE 3-16 directed ity of METER Kit 00:00: for 4 [place] 00 times a Medical day Branch glucose check, ICD E11.9 TRUE METRIX 2022-0 Yes [id number] Use as Univers GLUCOSE 3-16 directed ity of TEST STRIP 00:00: to check [place] as strip 00 blood Medical sugar D Branch DX: E11.9 TRUE METRIX 2022-0 Yes [id number] Use as Univers GLUCOSE 3-16 directed ity of METER Kit 00:00: for 4 [place] 00 times a Medical day Branch glucose check, ICD E11.9 TRUE METRIX 2-0 Yes [id number] Use as Univers GLUCOSE 3-16 directed ity of TEST STRIP 00:00: to check [place] as strip 00 blood Medical sugar QID Branch DX: E11.9 TRUE METRIX 2022-0 Yes [id number] Use as Univers GLUCOSE 3-16 directed ity of METER Kit 00:00: for 4 [place] times a Medical day Branch glucose check, ICD E11.9 TRUE METRIX 2022-0 Yes [id number] Use as Univers GLUCOSE 3-16 directed ity of TEST STRIP 00:00: to check [place] as strip 00 blood Medical sugar QID Branch DX: E11.9 TRUE METRIX 2022-0 Yes [id number] Use as Univers GLUCOSE 3-16 directed ity of METER Kit 00:00: for 4 [place] 00 times a Medical day Branch glucose check, ICD E11.9 TRUE METRIX 2022-0 Yes [id number] Use as Univers GLUCOSE 3-16 directed ity of TEST STRIP 00:00: to check [place] as strip 00 blood Medical sugar D Branch DX: E11.9 TRUE METRIX 2022-0 Yes [id number] Use as Univers GLUCOSE 3-16 directed ity of METER Kit 00:00: for 4 [place] 00 times a Medical day Branch glucose check, ICD E11.9 TRUE METRIX 2022-0 Yes [id number] Use as Univers GLUCOSE 3-16 directed ity of TEST STRIP 00:00: to check [place] as strip 00 blood Medical sugar QID Branch DX: E11.9 TRUE METRIX 2022-0 Yes [id number] Use as Univers GLUCOSE 3-16 directed ity of METER Kit 00:00: for 4 [place] 00 times a Medical day Branch glucose check, ICD E11.9 TRUE METRIX 2022-0 Yes [id number] Use as Univers GLUCOSE 3-16 directed ity of TEST STRIP 00:00: to check [place] as strip 00 blood Medical sugar QID Branch DX: E11.9 TRUE METRIX 2022-0 Yes [id number] Use as Univers GLUCOSE 3-16 directed ity of METER Kit 00:00: for 4 [place] 00 times a Medical day Branch glucose check, ICD E11.9 TRUE METRIX 2022-0 Yes [id number] Use as Univers GLUCOSE 3-16 directed ity of TEST STRIP 00:00: to check [place] as strip 00 blood Medical sugar D Branch DX: E11.9 TRUE METRIX 2022-0 Yes [id number] Use as Univers GLUCOSE 3-16 directed ity of METER Kit 00:00: for 4 [place] 00 times a Medical day Branch glucose check, ICD E11.9 TRUE METRIX 2022-0 Yes [id number] Use as Univers GLUCOSE 3-16 directed ity of TEST STRIP 00:00: to check [place] as strip 00 blood Medical sugar D Branch DX: E11.9 TRUE METRIX 2022-0 Yes [id number] Use as Univers GLUCOSE 3-16 directed ity of METER Kit 00:00: for 4 [place] 00 times a Medical day Branch glucose check, ICD E11.9 TRUE METRIX 2022-0 Yes [id number] Use as Univers GLUCOSE 3-16 directed ity of TEST STRIP 00:00: to check [place] as strip 00 blood Medical sugar QID Branch DX: E11.9 TRUE METRIX 2022-0 Yes [id number] Use as Univers GLUCOSE 3-16 directed ity of METER Kit 00:00: for 4 [place] 00 times a Medical day Branch glucose check, ICD E11.9 TRUE METRIX 2022-0 Yes [id number] Use as Univers GLUCOSE 3-16 directed ity of TEST STRIP 00:00: to check [place] as strip 00 blood Medical sugar QID Branch DX: E11.9 TRUE METRIX 2022-0 Yes [id number] Use as Univers GLUCOSE 3-16 directed ity of METER Kit 00:00: for 4 [place] 00 times a Medical day Branch glucose check, ICD E11.9 TRUE METRIX 2022-0 Yes [id number] Use as Univers GLUCOSE 3-16 directed ity of TEST STRIP 00:00: to check [place] as strip 00 blood Medical sugar QID Branch DX: E11.9 TRUE METRIX 2022-0 Yes [id number] Use as Univers GLUCOSE 3-16 directed ity of METER Kit 00:00: for 4 [place] 00 times a Medical day Branch glucose check, ICD E11.9 TRUE METRIX 2022-0 Yes [id number] Use as Univers GLUCOSE 3-16 directed ity of TEST STRIP 00:00: to check [place] as strip 00 blood Medical sugar QID Branch DX: E11.9 TRUE METRIX 2022-0 Yes [id number] Use as Univers GLUCOSE 3-16 directed ity of METER Kit 00:00: for 4 [place] 00 times a Medical day Branch glucose check, ICD E11.9 TRUE METRIX 2-0 Yes [id number] Use as Univers GLUCOSE 3-16 directed ity of TEST STRIP 00:00: to check [place] as strip 00 blood Medical sugar QID Branch DX: E11.9 TRUE METRIX 2022-0 Yes [id number] Use as Univers GLUCOSE 3-16 directed ity of METER Kit 00:00: for 4 [place] times a Medical day Branch glucose check, ICD E11.9 TRUE METRIX 2022-0 Yes [id number] Use as Univers GLUCOSE 3-16 directed ity of TEST STRIP 00:00: to check [place] as strip 00 blood Medical sugar QID Branch DX: E11.9 TRUE METRIX 2022-0 Yes [id number] Use as Univers GLUCOSE 3-16 directed ity of METER Kit 00:00: for 4 [place] 00 times a Medical day Branch glucose check, ICD E11.9 TRUE METRIX 2022-0 Yes [id number] Use as Univers GLUCOSE 3-16 directed ity of TEST STRIP 00:00: to check [place] as strip 00 blood Medical sugar QID Branch DX: E11.9 TRUE METRIX 2022-0 Yes [id number] Use as Univers GLUCOSE 3-16 directed ity of METER Kit 00:00: for 4 [place] 00 times a Medical day Branch glucose check, ICD E11.9 TRUE METRIX 2022-0 Yes [id number] Use as Univers GLUCOSE 3-16 directed ity of TEST STRIP 00:00: to check [place] as strip 00 blood Medical sugar QID Branch DX: E11.9 TRUE METRIX 2022-0 Yes [id number] Use as Univers GLUCOSE 3-16 directed ity of METER Kit 00:00: for 4 [place] 00 times a Medical day Branch glucose check, ICD E11.9 TRUE METRIX 2022-0 Yes [id number] Use as Univers GLUCOSE 3-16 directed ity of TEST STRIP 00:00: to check [place] as strip 00 blood Medical sugar QID Branch DX: E11.9 TRUE METRIX 2022-0 Yes [id number] Use as Univers GLUCOSE 3-16 directed ity of METER Kit 00:00: for 4 [place] 00 times a Medical day Branch glucose check, ICD E11.9 TRUE METRIX 2022-0 Yes [id number] Use as Univers GLUCOSE 3-16 directed ity of TEST STRIP 00:00: to check [place] as strip 00 blood Medical sugar D Branch DX: E11.9 TRUE METRIX 2022-0 Yes [id number] Use as Univers GLUCOSE 3-16 directed ity of METER Kit 00:00: for 4 [place] 00 times a Medical day Branch glucose check, ICD E11.9 TRUE METRIX 2022-0 Yes [id number] Use as Univers GLUCOSE 3-16 directed ity of TEST STRIP 00:00: to check [place] as strip 00 blood Medical sugar D Branch DX: E11.9 TRUE METRIX 2022-0 Yes [id number] Use as Univers GLUCOSE 3-16 directed ity of METER Kit 00:00: for 4 [place] 00 times a Medical day Branch glucose check, ICD E11.9 TRUE METRIX 2022-0 Yes [id number] Use as Univers GLUCOSE 3-16 directed ity of TEST STRIP 00:00: to check [place] strip 00 blood Medical sugar QID Branch DX: E11.9 TRUE METRIX 2022-0 Yes [id number] Use as Univers GLUCOSE 3-16 directed ity of METER Kit 00:00: for 4 [place] 00 times a Medical day Branch glucose check, ICD E11.9 TRUE METRIX 2022-0 Yes [id number] Use as Univers GLUCOSE 3-16 directed ity of TEST STRIP 00:00: to check [place] as strip 00 blood Medical sugar QID Branch DX: E11.9 TRUE METRIX 2022-0 Yes [id number] Use as Univers GLUCOSE 3-16 directed ity of METER Kit 00:00: for 4 [place] 00 times a Medical day Branch glucose check, ICD E11.9 TRUE METRIX 2022-0 Yes [id number] Use as Univers GLUCOSE 3-16 directed ity of TEST STRIP 00:00: to check [place] as strip 00 blood Medical sugar QID Branch DX: E11.9 TRUE METRIX 2022-0 Yes [id number] Use as Univers GLUCOSE 3-16 directed ity of METER Kit 00:00: for 4 [place] 00 times a Medical day Branch glucose check, ICD E11.9 TRUE METRIX 2022-0 Yes [id number] Use as Univers GLUCOSE 3-16 directed ity of TEST STRIP 00:00: to check [place] strip 00 blood Medical sugar QID Branch DX: E11.9 TRUE METRIX 2022-0 Yes [id number] [facility] GLUCOSE 3-16 directed ity of METER Kit 00:00: for 4 [place] 00 times a Medical day Branch glucose check, ICD E11.9 TRUE METRIX 2022-0 Yes [id number] Use as [facility] GLUCOSE 3-16 directed ity of TEST STRIP 00:00: to check [place] strip 00 blood Medical sugar QID Branch DX: E11.9 TRUE METRIX 2022-0 Yes [id number] Use as [facility] GLUCOSE 3-16 directed ity of METER Kit 00:00: for 4 [place] times a Medical day Branch glucose check, ICD E11.9 TRUE METRIX 2022-0 Yes [id number] Use as [facility] GLUCOSE 3-16 directed ity of TEST STRIP 00:00: to check [place] strip 00 blood Medical sugar QID Branch DX: E11.9 TRUE METRIX 2022-0 Yes [id number] Use as [facility] GLUCOSE 3-16 directed ity of METER Kit 00:00: for 4 [place] 00 times a Medical day Branch glucose check, ICD E11.9 TRUE METRIX 2022-0 Yes [id number] Use as [facility] GLUCOSE 3-16 directed ity of TEST STRIP 00:00: to check [place] strip 00 blood Medical sugar QID Branch DX: E11.9 TRUE METRIX 2022-0 Yes [id number] Use as [facility] GLUCOSE 3-16 directed ity of METER Kit 00:00: for 4 [place] 00 times a Medical day Branch glucose check, ICD E11.9 TRUE METRIX 2022-0 Yes [id number] Use as [facility] GLUCOSE 3-16 directed ity of TEST STRIP 00:00: to check [place] strip 00 blood Medical sugar QID Branch DX: E11.9 TRUE METRIX 2022-0 Yes [id number] Use as [facility] GLUCOSE 3-16 directed ity of METER Kit 00:00: for 4 [place] 00 times a Medical day Branch glucose check, ICD E11.9 TRUE METRIX 2022-0 Yes [id number] Use as [facility] GLUCOSE 3-16 directed ity of TEST STRIP 00:00: to check [place] strip 00 blood Medical sugar D Branch DX: E11.9 TRUE METRIX 2022-0 Yes [id number] Use as [facility] GLUCOSE 3-16 directed ity of METER Kit 00:00: for 4 [place] 00 times a Medical day Branch glucose check, ICD E11.9 TRUE METRIX 2022-0 Yes [id number] Use as [facility] GLUCOSE 3-16 directed ity of TEST STRIP 00:00: to check [place] strip 00 blood Medical sugar D Branch DX: E11.9 TRUE METRIX 2022-0 Yes [id number] Use as [facility] GLUCOSE 3-16 directed ity of METER Kit 00:00: for 4 [place] 00 times a Medical day Branch glucose check, ICD E11.9 TRUE METRIX 2022-0 Yes [id number] Use as [facility] GLUCOSE 3-16 directed ity of TEST STRIP 00:00: to check [place] strip 00 blood Medical sugar D Branch DX: E11.9 TRUE METRIX 2022-0 Yes [id number] Use as [facility] GLUCOSE 3-16 directed ity of METER Kit 00:00: for 4 [place] 00 times a Medical day Branch glucose check, ICD E11.9 TRUE METRIX 2022-0 Yes [id number] Use as [facility] GLUCOSE 3-16 directed ity of TEST STRIP 00:00: to check [place] strip 00 blood Medical sugar QID Branch DX: E11.9 TRUE METRIX 2022-0 Yes [id number] Use as [facility] GLUCOSE 3-16 directed ity of METER Kit 00:00: for 4 [place] 00 times a Medical day Branch glucose check, ICD E11.9 TRUE METRIX 2022-0 Yes [id number] Use as [facility] GLUCOSE 3-16 directed ity of TEST STRIP 00:00: to check [place] strip 00 blood Medical sugar QID Branch DX: E11.9 TRUE METRIX 2022-0 Yes [id number] Use as [facility] GLUCOSE 3-16 directed ity of METER Kit 00:00: for 4 [place] 00 times a Medical day Branch glucose check, ICD E11.9 TRUE METRIX 2022-0 Yes [id number] Use as [facility] GLUCOSE 3-16 directed ity of TEST STRIP 00:00: to check [place] strip 00 blood Medical sugar QID Branch DX: E11.9 TRUE METRIX 2022-0 Yes [id number] Use as [facility] GLUCOSE 3-16 directed ity of METER Kit 00:00: for 4 [place] 00 times a Medical day Branch glucose check, ICD E11.9 TRUE METRIX 2022-0 Yes [id number] Use as [facility] GLUCOSE 3-16 directed ity of TEST STRIP 00:00: to check [place] as strip 00 blood Medical sugar QID Branch DX: E11.9 TRUE METRIX 2022-0 Yes [id number] Use as [facility] GLUCOSE 3-16 directed ity of METER Kit 00:00: for 4 [place] 00 times a Medical day Branch glucose check, ICD E11.9 TRUE METRIX 2022-0 Yes [id number] Use as [facility] GLUCOSE 3-16 directed ity of TEST STRIP 00:00: to check [place] as strip 00 blood Medical sugar QID Branch DX: E11.9 TRUE METRIX 2022-0 Yes [id number] Use as [facility] GLUCOSE 3-16 directed ity of METER Kit 00:00: for 4 [place] 00 times a Medical day Branch glucose check, ICD E11.9 TRUE METRIX 2022-0 Yes [id number] Use as [facility] GLUCOSE 3-16 directed ity of TEST STRIP 00:00: to check [place] as strip 00 blood Medical sugar QID Branch DX: E11.9 TRUE METRIX 2022-0 Yes [id number] Use as [facility] GLUCOSE 3-16 directed ity of METER Kit 00:00: for 4 [place] 00 times a Medical day Branch glucose check, ICD E11.9 TRUE METRIX 2022-0 Yes [id number] Use as [facility] GLUCOSE 3-16 directed ity of TEST STRIP 00:00: to check [place] as strip 00 blood Medical sugar QID Branch DX: E11.9 TRUE METRIX 2022-0 Yes [id number] Use as [facility] GLUCOSE 3-16 directed ity of METER Kit 00:00: for 4 [place] 00 times a Medical day Branch glucose check, ICD E11.9 TRUE METRIX 2022-0 Yes [id number] Use as [facility] GLUCOSE 3-16 directed ity of TEST STRIP 00:00: to check [place] as strip 00 blood Medical sugar QID Branch DX: E11.9 TRUE METRIX 2022-0 Yes [id number] Use as [facility] GLUCOSE 3-16 directed ity of METER Kit 00:00: for 4 [place] 00 times a Medical day Branch glucose check, ICD E11.9 TRUE METRIX 2022-0 Yes [id number] Use as [facility] GLUCOSE 3-16 directed ity of TEST STRIP 00:00: to check [place] as strip 00 blood Medical sugar D Branch DX: E11.9 TRUE METRIX 2022-0 Yes [id number] Use as [facility] GLUCOSE 3-16 directed ity of METER Kit 00:00: for 4 [place] 00 times a Medical day Branch glucose check, ICD E11.9 TRUE METRIX 2022-0 Yes [id number] Use as [facility] GLUCOSE 3-16 directed ity of TEST STRIP 00:00: to check [place] as strip 00 blood Medical sugar D Branch DX: E11.9 TRUE METRIX 2022-0 Yes [id number] Use as [facility] GLUCOSE 3-16 directed ity of METER Kit 00:00: for 4 [place] 00 times a Medical day Branch glucose check, ICD E11.9 TRUE METRIX 2022-0 Yes [id number] Use as [facility] GLUCOSE 3-16 directed ity of TEST STRIP 00:00: to check [place] as strip 00 blood Medical sugar [facility] Branch DX: E11.9 TRUE METRIX 2022-0 Yes [id number] Use as [facility] GLUCOSE 3-16 directed ity of METER Kit 00:00: for 4 [place] 00 times a Medical day Branch glucose check, ICD E11.9 TRUE METRIX 2022-0 Yes [id number] Use as [facility] GLUCOSE 3-16 directed ity of TEST STRIP 00:00: to check [place] as strip 00 blood Medical sugar QID Branch DX: E11.9 TRUE METRIX 2022-0 Yes [id number] Use as [facility] GLUCOSE 3-16 directed ity of METER Kit 00:00: for 4 [place] 00 times a Medical day Branch glucose check, ICD E11.9 TRUE METRIX 2022-0 Yes [id number] Use as [facility] GLUCOSE 3-16 directed ity of TEST STRIP 00:00: to check [place] as strip 00 blood Medical sugar QID Branch DX: E11.9 TRUE METRIX 2022-0 Yes [id number] Use as [facility] GLUCOSE 3-16 directed ity of METER Kit 00:00: for 4 [place] 00 times a Medical day Branch glucose check, ICD E11.9 TRUE METRIX 2022-0 Yes [id number] Use as [facility] GLUCOSE 3-16 directed ity of TEST STRIP 00:00: to check [place] as strip 00 blood Medical sugar QID Branch DX: E11.9 TRUE METRIX 2022-0 Yes [id number] Use as [facility] GLUCOSE 3-16 directed ity of METER Kit 00:00: for 4 [place] 00 times a Medical day Branch glucose check, ICD E11.9 TRUE METRIX 2022-0 Yes [id number] Use as [facility] GLUCOSE 3-16 directed ity of TEST STRIP 00:00: to check [place] as strip 00 blood Medical sugar D Branch DX: E11.9 TRUE METRIX 2022-0 Yes [id number] Use as [facility] GLUCOSE 3-16 directed ity of METER Kit 00:00: for 4 [place] 00 times a Medical day Branch glucose check, ICD E11.9 TRUE METRIX 2022-0 Yes [id number] Use as [facility] GLUCOSE 3-16 directed ity of TEST STRIP 00:00: to check [place] as strip 00 blood Medical sugar QID Branch DX: E11.9 TRUE METRIX 2022-0 Yes [id number] Use as [facility] GLUCOSE 3-16 directed ity of METER Kit 00:00: for 4 [place] 00 times a Medical day Branch glucose check, ICD E11.9 TRUE METRIX 2022-0 Yes [id number] Use as [facility] GLUCOSE 3-16 directed ity of TEST STRIP 00:00: to check [place] as strip 00 blood Medical sugar QID Branch DX: E11.9 TRUE METRIX 2022-0 Yes [id number] Use as [facility] GLUCOSE 3-16 directed ity of METER Kit 00:00: for 4 [place] 00 times a Medical day Branch glucose check, ICD E11.9 TRUE METRIX 2022-0 Yes [id number] Use as [facility] GLUCOSE 3-16 directed ity of TEST STRIP 00:00: to check [place] as strip 00 blood Medical sugar QID Branch DX: E11.9 TRUE METRIX 2022-0 Yes [id number] Use as [facility] GLUCOSE 3-16 directed ity of METER Kit 00:00: for 4 [place] 00 times a Medical day Branch glucose check, ICD E11.9 TRUE METRIX 2022-0 Yes [id number] Use as [facility] GLUCOSE 3-16 directed ity of TEST STRIP 00:00: to check [place] as strip 00 blood Medical sugar QID Branch DX: E11.9 TRUE METRIX 2022-0 Yes [id number] Use as [facility] GLUCOSE 3-16 directed ity of METER Kit 00:00: for 4 [place] 00 times a Medical day Branch glucose check, ICD E11.9 TRUE METRIX 2022-0 Yes [id number] Use as [facility] GLUCOSE 3-16 directed ity of TEST STRIP 00:00: to check [place] as strip 00 blood Medical sugar [facility] Branch DX: E11.9 TRUE METRIX 2022-0 Yes [id number] Use as [facility] GLUCOSE 3-16 directed ity of METER Kit 00:00: for 4 [place] 00 times a Medical day Branch glucose check, ICD E11.9 TRUE METRIX 2022-0 Yes [id number] Use as [facility] GLUCOSE 3-16 directed ity of TEST STRIP 00:00: to check [place] as strip 00 blood Medical sugar [facility] Branch DX: E11.9 TRUE METRIX 2022-0 Yes [id number] Use as [facility] GLUCOSE 3-16 directed ity of METER Kit 00:00: for 4 [place] 00 times a Medical day Branch glucose check, ICD E11.9 TRUE METRIX 2022-0 Yes [id number] Use as [facility] GLUCOSE 3-16 directed ity of TEST STRIP 00:00: to check [place] as strip 00 blood Medical sugar [facility] DX: E11.9 TRUE METRIX 2022-0 Yes [id number] Use as [facility] GLUCOSE 3-16 directed ity of METER Kit 00:00: for 4 [place] 00 times a Medical day Branch glucose check, ICD E11.9 TRUE METRIX 2022-0 Yes [id number] Use as [facility] GLUCOSE 3-16 directed ity of TEST STRIP 00:00: to check [place] as strip 00 blood Medical sugar QID Branch DX: E11.9 TRUE METRIX 2022-0 Yes [id number] Use as [facility] GLUCOSE 3-16 directed ity of METER Kit 00:00: for 4 [place] 00 times a Medical day Branch glucose check, ICD E11.9 TRUE METRIX 2022-0 Yes [id number] Use as [facility] GLUCOSE 3-16 directed ity of TEST STRIP 00:00: to check [place] as strip 00 blood Medical sugar QID Branch DX: E11.9 TRUE METRIX 2022-0 Yes [id number] Use as [facility] GLUCOSE 3-16 directed ity of METER Kit 00:00: for 4 [place] 00 times a Medical day Branch glucose check, ICD E11.9 TRUE METRIX 2022-0 Yes [id number] Use as [facility] GLUCOSE 3-16 directed ity of TEST STRIP 00:00: to check [place] as strip 00 blood Medical sugar QID Branch DX: E11.9 TRUE METRIX 2022-0 Yes [id number] Use as [facility] GLUCOSE 3-16 directed ity of METER Kit 00:00: for 4 [place] 00 times a Medical day Branch glucose check, ICD E11.9 TRUE METRIX 2022-0 Yes [id number] Use as [facility] GLUCOSE 3-16 directed ity of TEST STRIP 00:00: to check [place] as strip 00 blood Medical sugar QID Branch DX: E11.9 TRUE METRIX 2022-0 Yes [id number] Use as [facility] GLUCOSE 3-16 directed ity of METER Kit 00:00: for 4 [place] 00 times a Medical day Branch glucose check, ICD E11.9 TRUE METRIX 2022-0 Yes [id number] Use as [facility] GLUCOSE 3-16 directed ity of TEST STRIP 00:00: to check [place] as strip 00 blood Medical sugar QID Branch DX: E11.9 TRUE METRIX 2022-0 Yes [id number] Use as [facility] GLUCOSE 3-16 directed ity of METER Kit 00:00: for 4 [place] 00 times a Medical day Branch glucose check, ICD E11.9 TRUE METRIX 2022-0 Yes [id number] Use as [facility] GLUCOSE 3-16 directed ity of TEST STRIP 00:00: to check [place] as strip 00 blood Medical sugar QID Branch DX: E11.9 TRUE METRIX 2022-0 Yes [id number] Use as [facility] GLUCOSE 3-16 directed ity of METER Kit 00:00: for 4 [place] 00 times a Medical day Branch glucose check, ICD E11.9 TRUE METRIX 2022-0 Yes [id number] Use as [facility] GLUCOSE 3-16 directed ity of TEST STRIP 00:00: to check [place] as strip 00 blood Medical sugar QID Branch DX: E11.9 TRUE METRIX 2022-0 Yes [id number] Use as [facility] GLUCOSE 3-16 directed ity of METER Kit 00:00: for 4 [place] 00 times a Medical day Branch glucose check, ICD E11.9 TRUE METRIX 2022-0 Yes [id number] Use as [facility] GLUCOSE 3-16 directed ity of TEST STRIP 00:00: to check [place] as strip 00 blood Medical sugar QID Branch DX: E11.9 TRUE METRIX 2022-0 Yes [id number] Use as [facility] GLUCOSE 3-16 directed ity of METER Kit 00:00: for 4 [place] times a Medical day Branch glucose check, ICD E11.9 TRUE METRIX 2021-0 Yes [id number] Use as [facility] GLUCOSE 3-16 directed ity of TEST STRIP 00:00: to check [place] as strip 00 blood Medical sugar [facility] [place] DX: E11.9 TRUE METRIX 2022-0 Yes [id number] Use as [facility] GLUCOSE 3-16 directed ity of METER Kit 00:00: for 4 [place] times a Medical day Branch glucose check, ICD E11.9 TRUE METRIX 2021-0 Yes [id number] Use as [facility] GLUCOSE 3-16 directed ity of TEST STRIP 00:00: to check [place] as strip 00 blood Medical sugar [place] DX: E11.9 TRUE METRIX 2021-0 Yes [id number] Use as [facility] GLUCOSE 3-16 directed ity of METER Kit 00:00: for 4 [place] times a Medical day Branch glucose check, ICD E11.9 TRUE METRIX 2021-0 Yes [id number] Use as [facility] GLUCOSE 3-16 directed ity of TEST STRIP 00:00: to check [place] as strip 00 blood Medical sugar [place] DX: E11.9 TRUE METRIX 2-0 Yes [id number] Use as [facility] GLUCOSE 3-16 directed ity of METER Kit 00:00: for 4 [place] times a Medical day Branch glucose check, ICD E11.9 TRUE METRIX 2022-0 2023- No [id number] Use as [facility] GLUCOSE 3-16 09-02 directed ity of TEST STRIP 00:00: 00:00 to check [place] strip 00 :00 blood Medical sugar [place] DX: E11.9 SPIRONOLACT 2021-0 Yes [id number] TAKE 1 [facility] ONE 25 mg 1-31 TABLET BY ity o f tablet 00:00: MOUTH [place] 00 TWICE Medical DAILY Branch FUROSEMIDE 2021-0 Yes TAKE 1 Unive rs 80 mg 1-31 TABLET BY ity of tablet 00:00: MOUTH [place] 00 TWICE Medical DAILY Branch AMLODIPINE 2022-0 Yes [id number] 5mg TAKE 1 U nivers 5 mg tablet 1-31 TABLET BY ity of 00:00: [facility] DAILY Medical Branch SPIRONOLACT 2022-0 Yes [id number] TAKE 1 [facility] ONE 25 mg 1-31 TABLET BY ity o f tablet 00:00: [facility] TWICE Medical DAILY Branch FUROSEMIDE 2022-0 Yes TAKE 1 Unive rs 80 mg 1-31 TABLET BY ity of tablet 00:00: [facility] TWICE Medical DAILY Branch AMLODIPINE 2022-0 Yes [id number] 5mg TAKE 1 U nivers 5 mg tablet 1-31 TABLET BY ity of 00:00: [facility] DAILY Medical Branch SPIRONOLACT 2022-0 Yes [id number] TAKE 1 [facility] ONE 25 mg 1-31 TABLET BY ity o f tablet 00:00: [facility] TWICE Medical DAILY Branch FUROSEMIDE 2022-0 Yes TAKE 1 Unive rs 80 mg 1-31 TABLET BY ity of tablet 00:00: [facility] TWICE Medical DAILY Branch AMLODIPINE 2022-0 Yes [id number] 5mg TAKE 1 U nivers 5 mg tablet 1-31 TABLET BY ity of 00:00: [facility] DAILY Medical Branch SPIRONOLACT 2-0 Yes [id number] TAKE 1 [facility] ONE 25 mg 1-31 TABLET BY ity o f tablet 00:00: [facility] TWICE Medical DAILY Branch FUROSEMIDE 2022-0 Yes TAKE 1 Unive rs 80 mg 1-31 TABLET BY ity of tablet 00:00: [facility] TWICE Medical DAILY Branch AMLODIPINE 2022-0 Yes [id number] 5mg TAKE 1 U nivers 5 mg tablet 1-31 TABLET BY ity of 00:00: [facility] DAILY Medical Branch SPIRONOLACT 2022-0 Yes [id number] TAKE 1 [facility] ONE 25 mg 1-31 TABLET BY ity o f tablet 00:00: [facility] TWICE Medical DAILY Branch FUROSEMIDE 2022-0 Yes TAKE 1 Unive rs 80 mg 1-31 TABLET BY ity of tablet 00:00: [facility] TWICE Medical DAILY Branch AMLODIPINE 2022-0 Yes [id number] 5mg TAKE 1 U nivers 5 mg tablet 1-31 TABLET BY ity of 00:00: [facility] DAILY Medical Branch SPIRONOLACT 2022-0 Yes [id number] TAKE 1 [facility] ONE 25 mg 1-31 TABLET BY ity o f tablet 00:00: MOUTH 00 TWICE Medical DAILY Branch FUROSEMIDE 2022-0 Yes TAKE 1 Unive rs 80 mg 1-31 TABLET BY ity of tablet 00:00: MOUTH 00 TWICE Medical DAILY Branch AMLODIPINE 2022-0 Yes [id number] 5mg TAKE 1 U nivers 5 mg tablet 1-31 TABLET BY ity of 00:00: MOUTH [place] 00 DAILY Medical Branch SPIRONOLACT 2-0 Yes [id number] TAKE 1 [facility] ONE 25 mg 1-31 TABLET BY ity o f tablet 00:00: MOUTH TWICE Medical DAILY Branch FUROSEMIDE 2-0 Yes TAKE 1 Unive rs 80 mg 1-31 TABLET BY ity of tablet 00:00: MOUTH [place] TWICE Medical DAILY Branch AMLODIPINE 2021-0 Yes [id number] 5mg TAKE 1 U nivers 5 mg tablet 1-31 TABLET BY ity of 00:00: MOUTH [place] DAILY Medical Branch SPIRONOLACT 2021-0 Yes [id number] TAKE 1 [facility] ONE 25 mg 1-31 TABLET BY ity o f tablet 00:00: MOUTH TWICE Medical DAILY Branch FUROSEMIDE 2-0 Yes TAKE 1 Unive rs 80 mg 1-31 TABLET BY ity of tablet 00:00: MOUTH [place] TWICE Medical DAILY Branch AMLODIPINE 2-0 Yes [id number] 5mg TAKE 1 U nivers 5 mg tablet 1-31 TABLET BY ity of 00:00: MOUTH [place] 00 DAILY Medical Branch SPIRONOLACT 2-0 Yes [id number] TAKE 1 [facility] ONE 25 mg 1-31 TABLET BY ity o f tablet 00:00: MOUTH TWICE Medical DAILY Branch FUROSEMIDE 2-0 Yes TAKE 1 Unive rs 80 mg 1-31 TABLET BY ity of tablet 00:00: MOUTH [place] TWICE Medical DAILY Branch AMLODIPINE 2-0 Yes [id number] 5mg TAKE 1 U nivers 5 mg tablet 1-31 TABLET BY ity of 00:00: MOUTH [place] 00 DAILY Medical Branch SPIRONOLACT 2-0 Yes [id number] TAKE 1 [facility] ONE 25 mg 1-31 TABLET BY ity o f tablet 00:00: MOUTH [place] TWICE Medical DAILY Branch FUROSEMIDE 2-0 Yes TAKE 1 Unive rs 80 mg 1-31 TABLET BY ity of tablet 00:00: MOUTH [place] 00 TWICE Medical DAILY Branch AMLODIPINE 2022-0 Yes [id number] 5mg TAKE 1 U nivers 5 mg tablet 1-31 TABLET BY ity of 00:00: [facility] DAILY Medical Branch SPIRONOLACT 2022-0 Yes [id number] TAKE 1 [facility] ONE 25 mg 1-31 TABLET BY ity o f tablet 00:00: [facility] TWICE Medical DAILY Branch FUROSEMIDE 2022-0 Yes TAKE 1 Unive rs 80 mg 1-31 TABLET BY ity of tablet 00:00: [facility] TWICE Medical DAILY Branch AMLODIPINE 2022-0 Yes [id number] 5mg TAKE 1 U nivers 5 mg tablet 1-31 TABLET BY ity of 00:00: [facility] DAILY Medical Branch SPIRONOLACT 2022-0 Yes [id number] TAKE 1 [facility] ONE 25 mg 1-31 TABLET BY ity o f tablet 00:00: [facility] TWICE Medical DAILY Branch FUROSEMIDE 2022-0 Yes TAKE 1 Unive rs 80 mg 1-31 TABLET BY ity of tablet 00:00: [facility] TWICE Medical DAILY Branch AMLODIPINE 2022-0 Yes [id number] 5mg TAKE 1 U nivers 5 mg tablet 1-31 TABLET BY ity of 00:00: [facility] DAILY Medical Branch SPIRONOLACT 2022-0 Yes [id number] TAKE 1 [facility] ONE 25 mg 1-31 TABLET BY ity o f tablet 00:00: [facility] TWICE Medical DAILY Branch FUROSEMIDE 2-0 Yes TAKE 1 Unive rs 80 mg 1-31 TABLET BY ity of tablet 00:00: [facility] TWICE Medical DAILY Branch AMLODIPINE 2022-0 Yes [id number] 5mg TAKE 1 U nivers 5 mg tablet 1-31 TABLET BY ity of 00:00: [facility] DAILY Medical Branch SPIRONOLACT 2022-0 Yes [id number] TAKE 1 [facility] ONE 25 mg 1-31 TABLET BY ity o f tablet 00:00: [facility] TWICE Medical DAILY Branch FUROSEMIDE 2022-0 Yes TAKE 1 Unive rs 80 mg 1-31 TABLET BY ity of tablet 00:00: [facility] TWICE Medical DAILY Branch AMLODIPINE 2022-0 Yes [id number] 5mg TAKE 1 U nivers 5 mg tablet 1-31 TABLET BY ity of 00:00: [facility] DAILY Medical Branch SPIRONOLACT 2022-0 Yes [id number] TAKE 1 [facility] ONE 25 mg 1-31 TABLET BY ity o f tablet 00:00: MOUTH TWICE Medical DAILY Branch FUROSEMIDE 2022-0 Yes TAKE 1 Unive rs 80 mg 1-31 TABLET BY ity of tablet 00:00: MOUTH TWICE Medical DAILY Branch AMLODIPINE 2022-0 Yes [id number] 5mg TAKE 1 U nivers 5 mg tablet 1-31 TABLET BY ity of 00:00: MOUTH DAILY Medical Branch SPIRONOLACT 2022-0 Yes [id number] TAKE 1 [facility] ONE 25 mg 1-31 TABLET BY ity o f tablet 00:00: MOUTH TWICE Medical DAILY Branch FUROSEMIDE 2022-0 Yes TAKE 1 Unive rs 80 mg 1-31 TABLET BY ity of tablet 00:00: TWICE Medical DAILY Branch AMLODIPINE 2022-0 Yes [id number] 5mg TAKE 1 U nivers 5 mg tablet 1-31 TABLET BY ity of 00:00: DAILY Medical Branch SPIRONOLACT 2022-0 Yes [id number] TAKE 1 [facility] ONE 25 mg 1-31 TABLET BY ity o f tablet 00:00: TWICE Medical DAILY Branch FUROSEMIDE 2022-0 Yes TAKE 1 Unive rs 80 mg 1-31 TABLET BY ity of tablet 00:00: TWICE Medical DAILY Branch AMLODIPINE 2022-0 Yes [id number] 5mg TAKE 1 U nivers 5 mg tablet 1-31 TABLET BY ity of 00:00: DAILY Medical Branch SPIRONOLACT 2022-0 Yes [id number] TAKE 1 [facility] ONE 25 mg 1-31 TABLET BY ity o f tablet 00:00: TWICE Medical DAILY Branch FUROSEMIDE 2022-0 Yes TAKE 1 Unive rs 80 mg 1-31 TABLET BY ity of tablet 00:00: TWICE Medical DAILY Branch AMLODIPINE 2022-0 Yes [id number] 5mg TAKE 1 U nivers 5 mg tablet 1-31 TABLET BY ity of 00:00: [facility] DAILY Medical Branch SPIRONOLACT 2022-0 Yes [id number] TAKE 1 [facility] ONE 25 mg 1-31 TABLET BY ity o f tablet 00:00: TWICE Medical DAILY Branch FUROSEMIDE 2022-0 Yes TAKE 1 Unive rs 80 mg 1-31 TABLET BY ity of tablet 00:00: [facility] TWICE Medical DAILY Branch AMLODIPINE 2022-0 Yes [id number] 5mg TAKE 1 U nivers 5 mg tablet 1-31 TABLET BY ity of 00:00: MOUTH DAILY Medical Branch SPIRONOLACT 2022-0 Yes [id number] TAKE 1 [facility] ONE 25 mg 1-31 TABLET BY ity o f tablet 00:00: MOUTH TWICE Medical DAILY Branch FUROSEMIDE 2022-0 Yes TAKE 1 Unive rs 80 mg 1-31 TABLET BY ity of tablet 00:00: MOUTH TWICE Medical DAILY Branch AMLODIPINE 2022-0 Yes [id number] 5mg TAKE 1 U nivers 5 mg tablet 1-31 TABLET BY ity of 00:00: MOUTH DAILY Medical Branch SPIRONOLACT 2022-0 Yes [id number] TAKE 1 [facility] ONE 25 mg 1-31 TABLET BY ity o f tablet 00:00: TWICE Medical DAILY Branch FUROSEMIDE 2022-0 Yes TAKE 1 Unive rs 80 mg 1-31 TABLET BY ity of tablet 00:00: TWICE Medical DAILY Branch AMLODIPINE 2022-0 Yes [id number] 5mg TAKE 1 U nivers 5 mg tablet 1-31 TABLET BY ity of 00:00: MOUTH DAILY Medical Branch SPIRONOLACT 2022-0 Yes [id number] TAKE 1 [facility] ONE 25 mg 1-31 TABLET BY ity o f tablet 00:00: TWICE Medical DAILY Branch FUROSEMIDE 2022-0 Yes TAKE 1 Unive rs 80 mg 1-31 TABLET BY ity of tablet 00:00: TWICE Medical DAILY Branch AMLODIPINE 2022-0 Yes [id number] 5mg TAKE 1 U nivers 5 mg tablet 1-31 TABLET BY ity of 00:00: [facility] DAILY Medical Branch SPIRONOLACT 2022-0 Yes [id number] TAKE 1 [facility] ONE 25 mg 1-31 TABLET BY ity o f tablet 00:00: MOUTH TWICE Medical DAILY Branch FUROSEMIDE 2022-0 Yes TAKE 1 Un[facility] rs 80 mg 1-31 TABLET BY ity of tablet 00:00: [facility] TWICE Medical DAILY Branch AMLODIPINE 2022-0 Yes [id number] 5mg TAKE 1 U nivers 5 mg tablet 1-31 TABLET BY ity of 00:00: [facility] DAILY Medical Branch SPIRONOLACT 2022-0 Yes [id number] TAKE 1 [facility] ONE 25 mg 1-31 TABLET BY ity o f tablet 00:00: MOUTH 00 TWICE Medical DAILY Branch FUROSEMIDE 2022-0 Yes TAKE 1 [facility]ive rs 80 mg 1-31 TABLET BY ity of tablet 00:00: TWICE Medical DAILY Branch AMLODIPINE 2022-0 Yes [id number] 5mg TAKE 1 U nivers 5 mg tablet 1-31 TABLET BY ity of 00:00: DAILY Medical Branch SPIRONOLACT 2022-0 Yes [id number] TAKE 1 [facility] ONE 25 mg 1-31 TABLET BY ity o f tablet 00:00: TWICE Medical DAILY Branch FUROSEMIDE 2022-0 Yes TAKE 1 [facility] rs 80 mg 1-31 TABLET BY ity of tablet 00:00: TWICE Medical DAILY Branch AMLODIPINE 2022-0 Yes [id number] 5mg TAKE 1 U nivers 5 mg tablet 1-31 TABLET BY ity of 00:00: [facility] DAILY Medical Branch SPIRONOLACT 2022-0 Yes [id number] TAKE 1 [facility] ONE 25 mg 1-31 TABLET BY ity o f tablet 00:00: [facility] TWICE Medical DAILY Branch FUROSEMIDE 2022-0 Yes TAKE 1 Unive rs 80 mg 1-31 TABLET BY ity of tablet 00:00: TWICE Medical DAILY Branch AMLODIPINE 2022-0 Yes [id number] 5mg TAKE 1 U nivers 5 mg tablet 1-31 TABLET BY ity of 00:00: [facility] DAILY Medical Branch SPIRONOLACT 2022-0 Yes [id number] TAKE 1 [facility] ONE 25 mg 1-31 TABLET BY ity o f tablet 00:00: [facility] TWICE Medical DAILY Branch FUROSEMIDE 2022-0 Yes TAKE 1 Unive rs 80 mg 1-31 TABLET BY ity of tablet 00:00: [facility] TWICE Medical DAILY Branch AMLODIPINE 2022-0 Yes [id number] 5mg TAKE 1 U nivers 5 mg tablet 1-31 TABLET BY ity of 00:00: [facility] DAILY Medical Branch SPIRONOLACT 2022-0 Yes [id number] TAKE 1 [facility] ONE 25 mg 1-31 TABLET BY ity o f tablet 00:00: [facility] TWICE Medical DAILY Branch FUROSEMIDE 2022-0 Yes TAKE 1 Unive rs 80 mg 1-31 TABLET BY ity of tablet 00:00: [facility] TWICE Medical DAILY Branch AMLODIPINE 2022-0 Yes [id number] 5mg TAKE 1 U nivers 5 mg tablet 1-31 TABLET BY [facility] 00:00: MOUTH DAILY [facility] SPIRONOLACT 2022-0 Yes [id number] TAKE 1 [facility] ONE 25 mg 1-31 TABLET BY ity o f tablet 00:00: TWICE Medical DAILY Branch FUROSEMIDE 2022-0 Yes TAKE 1 [facility] 80 mg 1-31 TABLET BY ity of tablet 00:00: TWICE Medical DAILY Branch AMLODIPINE 2022-0 Yes [id number] 5mg TAKE 1 [facility] n[facility] 5 mg tablet 1-31 TABLET BY ity of 00:00: MOUTH DAILY [facility] SPIRONOLACT 2022-0 Yes [id number] TAKE 1 [facility] ONE 25 mg 1-31 TABLET BY ity o f tablet 00:00: TWICE Medical DAILY Branch FUROSEMIDE 2022-0 Yes TAKE 1 [facility] 80 mg 1-31 TABLET BY ity of tablet 00:00: TWICE Medical DAILY Branch SPIRONOLACT 2022-0 Yes [id number] TAKE 1 [facility] ONE 25 mg 1-31 TABLET BY ity o f tablet 00:00: TWICE Medical DAILY Branch FUROSEMIDE 2022-0 Yes TAKE 1 [facility] 80 mg 1-31 TABLET BY ity of tablet 00:00: TWICE Medical DAILY Branch SPIRONOLACT 2022-0 Yes [id number] TAKE 1 [facility] ONE 25 mg 1-31 TABLET BY ity o f tablet 00:00: TWICE Medical DAILY Branch FUROSEMIDE 2022-0 Yes TAKE 1 [facility] 80 mg 1-31 TABLET BY ity of tablet 00:00: TWICE Medical DAILY Branch SPIRONOLACT 2022-0 Yes [id number] TAKE 1 [facility] ONE 25 mg 1-31 TABLET BY ity o f tablet 00:00: TWICE Medical DAILY Branch FUROSEMIDE 2022-0 Yes TAKE 1 [facility] 80 mg 1-31 TABLET BY ity of tablet 00:00: TWICE Medical DAILY Branch SPIRONOLACT 2022-0 Yes [id number] TAKE 1 [facility] ONE 25 mg 1-31 TABLET BY ity o f tablet 00:00: TWICE Medical DAILY Branch FUROSEMIDE 2022-0 Yes TAKE 1 [facility] 80 mg 1-31 TABLET BY ity of tablet 00:00: TWICE Medical DAILY Branch SPIRONOLACT 2022-0 Yes [id number] TAKE 1 [facility] ONE 25 mg 1-31 TABLET BY ity o f tablet 00:00: MOUTH 00 TWICE Medical DAILY Branch SPIRONOLACT 2022-0 Yes [id number] TAKE 1 [facility] ONE 25 mg 1-31 TABLET BY ity o f tablet 00:00: MOUTH 00 TWICE Medical DAILY Branch SPIRONOLACT 2022-0 Yes [id number] TAKE 1 [facility] ONE 25 mg 1-31 TABLET BY ity o f tablet 00:00: MOUTH 00 TWICE Medical DAILY Branch SPIRONOLACT 2022-0 Yes [id number] TAKE 1 [facility] ONE 25 mg 1-31 TABLET BY ity o f tablet 00:00: MOUTH 00 TWICE Medical DAILY Branch SPIRONOLACT 2022-0 Yes [id number] TAKE 1 [facility] ONE 25 mg 1-31 TABLET BY ity o f tablet 00:00: MOUTH [place] 00 TWICE Medical DAILY Branch SPIRONOLACT 2022-0 Yes [id number] TAKE 1 [facility] ONE 25 mg 1-31 TABLET BY ity o f tablet 00:00: MOUTH [place] 00 TWICE Medical DAILY Branch SPIRONOLACT 2022-0 Yes [id number] TAKE 1 [facility] ONE 25 mg 1-31 TABLET BY ity o f tablet 00:00: MOUTH [place] 00 TWICE Medical DAILY Branch SPIRONOLACT 2022-0 Yes [id number] TAKE 1 [facility] ONE 25 mg 1-31 TABLET BY ity o f tablet 00:00: MOUTH [place] 00 TWICE Medical DAILY Branch SPIRONOLACT 2022-0 Yes [id number] TAKE 1 [facility] ONE 25 mg 1-31 TABLET BY ity o f tablet 00:00: MOUTH [place] 00 TWICE Medical DAILY Branch SPIRONOLACT 2022-0 Yes [id number] TAKE 1 [facility] ONE 25 mg 1-31 TABLET BY ity o f tablet 00:00: MOUTH [place] 00 TWICE Medical DAILY Branch SPIRONOLACT 2022-0 Yes [id number] TAKE 1 [facility] ONE 25 mg 1-31 TABLET BY ity o f tablet 00:00: MOUTH [place] 00 TWICE Medical DAILY Branch SPIRONOLACT 2022-0 Yes [id number] TAKE 1 [facility] ONE 25 mg 1-31 TABLET BY ity o f tablet 00:00: MOUTH [place] 00 TWICE Medical DAILY Branch SPIRONOLACT 2022-0 Yes [id number] TAKE 1 [facility] ONE 25 mg 1-31 TABLET BY ity o f tablet 00:00: MOUTH [place] 00 TWICE Medical DAILY Branch SPIRONOLACT 2022-0 Yes [id number] TAKE 1 [facility] ONE 25 mg 1-31 TABLET BY ity o f tablet 00:00: MOUTH [place] 00 TWICE Medical DAILY Branch SPIRONOLACT 2021-0 Yes [id number] TAKE 1 [facility] ONE 25 mg 1-31 TABLET BY ity o f tablet 00:00: MOUTH [place] 00 TWICE Medical DAILY Branch SPIRONOLACT 2021-0 Yes [id number] TAKE 1 [facility] ONE 25 mg 1-31 TABLET BY ity o f tablet 00:00: MOUTH [place] 00 TWICE Medical DAILY Branch SPIRONOLACT 2021-0 Yes [id number] TAKE 1 [facility] ONE 25 mg 1-31 TABLET BY ity o f tablet 00:00: MOUTH [place] 00 TWICE Medical DAILY Branch SPIRONOLACT 2021-0 Yes [id number] TAKE 1 [facility] ONE 25 mg 1-31 TABLET BY ity o f tablet 00:00: MOUTH [place] 00 TWICE Medical DAILY Branch SPIRONOLACT 2021-0 Yes [id number] TAKE 1 [facility] ONE 25 mg 1-31 TABLET BY ity o f tablet 00:00: [facility] 00 TWICE Medical DAILY Branch SPIRONOLACT 2021-0 2021- No [id number] TAKE 1 [facility] ONE 25 mg 1-31 - TABLET BY ity of tablet 00:00: 00:00 [facility] 00 :00 TWICE Medical DAILY Branch SPIRONOLACT 2021-0 2021- No [id number] TAKE 1 [facility] ONE 25 mg 1-31 - TABLET BY ity of tablet 00:00: 00:00 [facility] 00 :00 TWICE Medical DAILY Branch FUROSEMIDE 2-0 2021- No TAKE 1 [facility] ers 80 mg 1-31 - TABLET BY ity of tablet 00:00: 00:00 [facility] 00 :00 TWICE Medical DAILY Branch FUROSEMIDE 2022-0 2022- No TAKE 1 [facility] ers 80 mg 1-31 - TABLET BY ity of tablet 00:00: 00:00 [facility] 00 :00 TWICE Medical DAILY Branch FUROSEMIDE 2022-0 202- No TAKE 1 [facility] ers 80 mg 1-31 - TABLET BY ity of tablet 00:00: 00:00 [facility] 00 :00 TWICE Medical DAILY Branch AMLODIPINE 2-0 2022- No [id number] 5mg TAKE 1 [facility] 5 mg tablet -02 06- TABLET BY it y of 00:00: 00:00 MOUTH [place] 00 :00 DAILY Medical Branch venlafaxine 2021-0 Yes [id number] TK 1 C PO [facility] XR 150 mg 1-13 QD ity of 24 hr 00:00: [place] capsule [facility] venlafaxine 2-0 Yes [id number] TK 1 C PO [facility] XR 150 mg 1-13 QD ity of 24 hr 00:00: [place] [facility] venlafaxine 2-0 Yes [id number] TK 1 C PO [facility] XR 150 mg 1-13 QD ity of 24 hr 00:00: [place] [facility] venlafaxine 2021-0 Yes [id number] TK 1 C PO [facility] XR 150 mg 1-13 QD ity of 24 hr 00:00: [place] capsule [facility] venlafaxine 2021-0 Yes [id number] TK 1 C PO [facility] XR 150 mg 1-13 QD ity of 24 hr 00:00: [place] [facility] venlafaxine 2021-0 Yes [id number] TK 1 C PO [facility] XR 150 mg 1-13 QD ity of 24 hr 00:00: [place] [facility] venlafaxine 2021-0 Yes [id number] TK 1 C PO [facility] XR 150 mg 1-13 QD ity of 24 hr 00:00: [place] [facility] venlafaxine 2021-0 Yes [id number] TK 1 C PO [facility] XR 150 mg 1-13 QD ity of 24 hr 00:00: [place] [facility] venlafaxine 2021-0 Yes [id number] TK 1 C PO [facility] XR 150 mg 1-13 QD ity of 24 hr 00:00: [place] [facility] venlafaxine 2021-0 Yes [id number] TK 1 C PO [facility] XR 150 mg 1-13 QD ity of 24 hr 00:00: [place] [facility] venlafaxine 2-0 Yes [id number] TK 1 C PO [facility] XR 150 mg 1-13 QD ity of 24 hr 00:00: [place] [facility] venlafaxine 2021-0 Yes [id number] TK 1 C PO [facility] XR 150 mg 1-13 QD ity of 24 hr 00:00: [place] [facility] venlafaxine 2021-0 Yes [id number] TK 1 C PO [facility] XR 150 mg 1-13 QD ity of 24 hr 00:00: [place] [facility] venlafaxine 2021-0 Yes [id number] TK 1 C PO [facility] XR 150 mg 1-13 QD ity of 24 hr 00:00: [place] [facility] venlafaxine 2021-0 Yes [id number] TK 1 C PO [facility] XR 150 mg 1-13 QD ity of 24 hr 00:00: [place] [facility] venlafaxine 2021-0 Yes [id number] TK 1 C PO [facility] XR 150 mg 1-13 QD ity of 24 hr 00:00: [place] [facility] venlafaxine 2021-0 Yes [id number] TK 1 C PO [facility] XR 150 mg 1-13 QD ity of 24 hr 00:00: [place] [facility] venlafaxine 2021-0 Yes [id number] TK 1 C PO [facility] XR 150 mg 1-13 QD ity of 24 hr 00:00: [place] [facility] venlafaxine 2021-0 Yes [id number] TK 1 C PO [facility] XR 150 mg 1-13 QD ity of 24 hr 00:00: [place] [facility] venlafaxine 2021-0 Yes [id number] TK 1 C PO [facility] XR 150 mg 1-13 QD ity of 24 hr 00:00: [place] [facility] venlafaxine 2021-0 Yes [id number] TK 1 C PO [facility] XR 150 mg 1-13 QD ity of 24 hr 00:00: [place] [facility] venlafaxine 2021-0 Yes [id number] TK 1 C PO [facility] XR 150 mg 1-13 QD ity of 24 hr 00:00: [place] [facility] venlafaxine 2021-0 Yes [id number] TK 1 C PO [facility] XR 150 mg 1-13 QD ity of 24 hr 00:00: [place] [facility] venlafaxine 2021-0 Yes [id number] TK 1 C PO [facility] XR 150 mg 1-13 QD ity of 24 hr 00:00: [place] [facility] venlafaxine 2021-0 Yes [id number] TK 1 C PO [facility] XR 150 mg 1-13 QD ity of 24 hr 00:00: [place] [facility] venlafaxine 2021-0 Yes [id number] TK 1 C PO [facility] XR 150 mg 1-13 QD ity of 24 hr 00:00: [place] [facility] venlafaxine 2021-0 Yes [id number] TK 1 C PO [facility] XR 150 mg 1-13 QD ity of 24 hr 00:00: [place] [facility] venlafaxine 2021-0 Yes [id number] TK 1 C PO [facility] XR 150 mg 1-13 QD ity of 24 hr 00:00: [place] [facility] venlafaxine 2021-0 Yes [id number] TK 1 C PO [facility] XR 150 mg 1-13 QD ity of 24 hr 00:00: [place] [facility] venlafaxine 2021-0 Yes [id number] TK 1 C PO [facility] XR 150 mg 1-13 QD ity of 24 hr 00:00: [place] [facility] venlafaxine 2021-0 Yes [id number] TK 1 C PO [facility] XR 150 mg 1-13 QD ity of 24 hr 00:00: [place] [facility] venlafaxine 2021-0 Yes [id number] TK 1 C PO [facility] XR 150 mg 1-13 QD ity of 24 hr 00:00: [place] [facility] venlafaxine 2021-0 Yes [id number] TK 1 C PO [facility] XR 150 mg 1-13 QD ity of 24 hr 00:00: [place] [facility] venlafaxine 2021-0 Yes [id number] TK 1 C PO [facility] XR 150 mg 1-13 QD ity of 24 hr 00:00: [place] [facility] venlafaxine 2021-0 Yes [id number] TK 1 C PO [facility] XR 150 mg 1-13 QD ity of 24 hr 00:00: [place] [facility] venlafaxine 2021-0 Yes [id number] TK 1 C PO [facility] XR 150 mg 1-13 QD ity of 24 hr 00:00: [place] [facility] venlafaxine 2021-0 Yes [id number] TK 1 C PO [facility] XR 150 mg 1-13 QD ity of 24 hr 00:00: [place] [facility] venlafaxine 2021-0 Yes [id number] TK 1 C PO [facility] XR 150 mg 1-13 QD ity of 24 hr 00:00: [place] [facility] venlafaxine 2021-0 Yes [id number] TK 1 C PO [facility] XR 150 mg 1-13 QD ity of 24 hr 00:00: [place] [facility] venlafaxine 2021-0 Yes [id number] TK 1 C PO [facility] XR 150 mg 1-13 QD ity of 24 hr 00:00: [place] [facility] venlafaxine 2021-0 Yes [id number] TK 1 C PO [facility] XR 150 mg 1-13 QD ity of 24 hr 00:00: [place] [facility] venlafaxine 2021-0 Yes [id number] TK 1 C PO [facility] XR 150 mg 1-13 QD ity of 24 hr 00:00: [place] [facility] venlafaxine 2021-0 Yes [id number] TK 1 C PO [facility] XR 150 mg 1-13 QD ity of 24 hr 00:00: [place] [facility] venlafaxine 2021-0 Yes [id number] TK 1 C PO [facility] XR 150 mg 1-13 QD ity of 24 hr 00:00: [place] [facility] venlafaxine 2021-0 Yes [id number] TK 1 C PO [facility] XR 150 mg 1-13 QD ity of 24 hr 00:00: [place] [facility] venlafaxine 2021-0 Yes [id number] TK 1 C PO [facility] XR 150 mg 1-13 QD ity of 24 hr 00:00: [place] [facility] venlafaxine 2021-0 Yes [id number] TK 1 C PO [facility] XR 150 mg 1-13 QD ity of 24 hr 00:00: [place] [facility] venlafaxine 2021-0 Yes [id number] TK 1 C PO [facility] XR 150 mg 1-13 QD ity of 24 hr 00:00: [place] [facility] venlafaxine 2021-0 Yes [id number] TK 1 C PO [facility] XR 150 mg 1-13 QD ity of 24 hr 00:00: [place] [facility] venlafaxine 2021-0 Yes [id number] TK 1 C PO [facility] XR 150 mg 1-13 QD ity of 24 hr 00:00: [place] [facility] venlafaxine 2021-0 Yes [id number] TK 1 C PO [facility] XR 150 mg 1-13 QD ity of 24 hr 00:00: [place] [facility] venlafaxine 2021-0 Yes [id number] TK 1 C PO [facility] XR 150 mg 1-13 QD ity of 24 hr 00:00: [place] [facility] venlafaxine 2021-0 Yes [id number] TK 1 C PO [facility] XR 150 mg 1-13 QD ity of 24 hr 00:00: [place] [facility] venlafaxine 2021-0 Yes [id number] TK 1 C PO [facility] XR 150 mg 1-13 QD ity of 24 hr 00:00: [place] [facility] venlafaxine 2021-0 Yes [id number] TK 1 C PO [facility] XR 150 mg 1-13 QD ity of 24 hr 00:00: [place] [facility] venlafaxine 2021-0 Yes [id number] TK 1 C PO [facility] XR 150 mg 1-13 QD ity of 24 hr 00:00: [place] [facility] venlafaxine 2021-0 Yes [id number] TK 1 C PO [facility] XR 150 mg 1-13 QD ity of 24 hr 00:00: [place] [facility] venlafaxine 2021-0 Yes [id number] TK 1 C PO [facility] XR 150 mg 1-13 QD ity of 24 hr 00:00: [place] [facility] venlafaxine 2021-0 Yes [id number] TK 1 C PO [facility] XR 150 mg 1-13 QD ity of 24 hr 00:00: [place] [facility] venlafaxine 2021-0 Yes [id number] TK 1 C PO [facility] XR 150 mg 1-13 QD ity of 24 hr 00:00: [place] [facility] venlafaxine 2021-0 Yes [id number] TK 1 C PO [facility] XR 150 mg 1-13 QD ity of 24 hr 00:00: [place] [facility] venlafaxine 2021-0 Yes [id number] TK 1 C PO [facility] XR 150 mg 1-13 QD ity of 24 hr 00:00: [place] [facility] venlafaxine 2021-0 Yes [id number] TK 1 C PO [facility] XR 150 mg 1-13 QD ity of 24 hr 00:00: [place] [facility] venlafaxine 2021-0 Yes [id number] TK 1 C PO [facility] XR 150 mg 1-13 QD ity of 24 hr 00:00: [place] [facility] venlafaxine 2021-0 Yes [id number] TK 1 C PO [facility] XR 150 mg 1-13 QD ity of 24 hr 00:00: [place] [facility] venlafaxine 2021-0 Yes [id number] TK 1 C PO [facility] XR 150 mg 1-13 QD ity of 24 hr 00:00: [place] [facility] venlafaxine 2-0 Yes [id number] TK 1 C PO [facility] XR 150 mg 1-13 QD ity of 24 hr 00:00: [place] [facility] venlafaxine 2021-0 Yes [id number] TK 1 C PO [facility] XR 150 mg 1-13 QD ity of 24 hr 00:00: [place] [facility] venlafaxine 2-0 Yes [id number] TK 1 C PO [facility] XR 150 mg 1-13 QD ity of 24 hr 00:00: [place] [facility] venlafaxine 2021-0 Yes [id number] TK 1 C PO [facility] XR 150 mg 1-13 QD ity of 24 hr 00:00: [place] [facility] venlafaxine 2021-0 Yes [id number] TK 1 C PO [facility] XR 150 mg 1-13 QD ity of 24 hr 00:00: [place] [facility] venlafaxine 2021-0 Yes [id number] TK 1 C PO [facility] XR 150 mg 1-13 QD ity of 24 hr 00:00: [place] [facility] venlafaxine 2021-0 Yes [id number] TK 1 C PO [facility] XR 150 mg 1-13 QD ity of 24 hr 00:00: [place] [facility] venlafaxine 2-0 Yes [id number] TK 1 C PO [facility] XR 150 mg 1-13 QD ity of 24 hr 00:00: [place] [facility] venlafaxine 2-0 Yes [id number] TK 1 C PO [facility] XR 150 mg 1-13 QD ity of 24 hr 00:00: [place] [facility] venlafaxine 2-0 Yes [id number] TK 1 C PO [facility] XR 150 mg 1-13 QD ity of 24 hr 00:00: [place] [facility] venlafaxine 2-0 Yes [id number] TK 1 C PO [facility] XR 150 mg 1-13 QD ity of 24 hr 00:00: [place] [facility] venlafaxine 2021-0 Yes [id number] TK 1 C PO [facility] XR 150 mg 1-13 QD ity of 24 hr 00:00: [place] [facility] venlafaxine 2-0 Yes [id number] TK 1 C PO [facility] XR 150 mg 1-13 QD ity of 24 hr 00:00: [place] [facility] venlafaxine 2021-0 Yes [id number] TK 1 C PO [facility] XR 150 mg 1-13 QD ity of 24 hr 00:00: [place] [facility] venlafaxine 2021-0 Yes [id number] TK 1 C PO [facility] XR 150 mg 1-13 QD ity of 24 hr 00:00: [place] [facility] venlafaxine 2021-0 Yes [id number] TK 1 C PO [facility] XR 150 mg 1-13 QD ity of 24 hr 00:00: [place] [facility] venlafaxine 2021-0 Yes [id number] TK 1 C PO [facility] XR 150 mg 1-13 QD ity of 24 hr 00:00: [place] [facility] venlafaxine 2021-0 Yes [id number] TK 1 C PO [facility] XR 150 mg 1-13 QD ity of 24 hr 00:00: [place] [facility] venlafaxine 0 Yes [id number] TK 1 C PO [facility] XR 150 [...] Medical OIL) 1,000 Branch mg capsule omega-3 2021-1 Yes 1g Take 1 g Un[facility] s [...] 1,000 Branch mg capsule Methylcellu 2021-0 Yes [id number] 1{scoop Take 1 Univers lose, with 9-23 } Scoop by ity o f Sugar, 00:00: mouth [place] ([facility], 00 daily. Medical SUCROSE,) Mixed with Bran ch powder water Methylcellu 2021-0 Yes [id number] 1{scoop Take 1 Univers lose, with 9-23 } Scoop by ity o f Sugar, 00:00: mouth [place] ([employer], 00 daily. Medical SUCROSE,) Mixed with Bran ch powder water Methylcellu 2021-0 Yes [id number] 1{scoop Take 1 Univers lose, with 9-23 } Scoop by ity o f Sugar, 00:00: mouth [place] ([facility], 00 daily. Medical SUCROSE,) Mixed with Bran ch powder water Methylcellu 2021-0 Yes [id number] 1{scoop Take 1 Univers lose, with 9-23 } Scoop by ity o f Sugar, 00:00: mouth [place] ([facility], 00 daily. Medical SUCROSE,) Mixed with Bran ch powder water Methylcellu 2021-0 Yes [id number] 1{scoop Take 1 Univers lose, with 9-23 } Scoop by ity o f Sugar, 00:00: mouth [place] ([facility], 00 daily. Medical SUCROSE,) Mixed with Bran ch powder water Methylcellu 2021-0 Yes [id number] 1{scoop Take 1 Univers lose, with 9-23 } Scoop by ity o f Sugar, 00:00: mouth [place] ([facility], 00 daily. Medical SUCROSE,) Mixed with Bran ch powder water Methylcellu 2021-0 Yes [id number] 1{scoop Take 1 Univers lose, with 9-23 } Scoop by ity o f Sugar, 00:00: mouth [place] ([facility], 00 daily. Medical SUCROSE,) Mixed with Bran ch powder water Methylcellu 2021-0 Yes [id number] 1{scoop Take 1 Univers lose, with 9-23 } Scoop by ity o f Sugar, 00:00: mouth [place] ([facility], 00 daily. Medical SUCROSE,) Mixed with Bran ch powder water Methylcellu 1-0 Yes [id number] 1{scoop Take 1 Univers lose, with 9-23 } Scoop by ity o f Sugar, 00:00: mouth [place] ([facility], 00 daily. Medical SUCROSE,) Mixed with Bran ch powder water Methylcellu 1-0 Yes [id number] 1{scoop Take 1 Univers lose, with 9-23 } Scoop by ity o f Sugar, 00:00: mouth [place] ([facility], 00 daily. Medical SUCROSE,) Mixed with Bran ch powder water Methylcellu 2021-0 Yes [id number] 1{scoop Take 1 Univers lose, with 9-23 } Scoop by ity o f Sugar, 00:00: mouth [place] ([facility], 00 daily. Medical SUCROSE,) Mixed with Bran ch powder water Methylcellu 1-0 Yes [id number] 1{scoop Take 1 Univers lose, with 9-23 } Scoop by ity o f Sugar, 00:00: mouth [place] ([facility], 00 daily. Medical SUCROSE,) Mixed with Bran ch powder water Methylcellu 1-0 Yes [id number] 1{scoop Take 1 Univers lose, with 9-23 } Scoop by ity o f Sugar, 00:00: mouth [place] ([facility], 00 daily. Medical SUCROSE,) Mixed with Bran ch powder water Methylcellu 1-0 Yes [id number] 1{scoop Take 1 Univers lose, with 9-23 } Scoop by ity o f Sugar, 00:00: mouth [place] ([facility], 00 daily. Medical SUCROSE,) Mixed with Bran ch powder water Methylcellu 2021-0 Yes [id number] 1{scoop Take 1 Univers lose, with 9-23 } Scoop by ity o f Sugar, 00:00: mouth [place] ([facility], 00 daily. Medical SUCROSE,) Mixed with Bran ch powder water Methylcellu 2021-0 Yes [id number] 1{scoop Take 1 Univers lose, with 9-23 } Scoop by ity o f Sugar, 00:00: mouth [place] ([facility], 00 daily. Medical SUCROSE,) Mixed with Bran ch powder water Methylcellu 2021-0 Yes [id number] 1{scoop Take 1 Univers lose, with 9-23 } Scoop by ity o f Sugar, 00:00: mouth [place] ([facility], 00 daily. Medical SUCROSE,) Mixed with Bran ch powder water Methylcellu 2021-0 Yes [id number] 1{scoop Take 1 Univers lose, with 9-23 } Scoop by ity o f Sugar, 00:00: mouth [place] ([employer], 00 daily. Medical SUCROSE,) Mixed with Bran ch powder water Methylcellu 2021-0 Yes [id number] 1{scoop Take 1 Univers lose, with 9-23 } Scoop by ity o f Sugar, 00:00: mouth [place] ([facility], 00 daily. Medical SUCROSE,) Mixed with Bran ch powder water Methylcellu 2021-0 Yes [id number] 1{scoop Take 1 Univers lose, with 9-23 } Scoop by ity o f Sugar, 00:00: mouth [place] ([facility], 00 daily. Medical SUCROSE,) Mixed with Bran ch powder water Methylcellu 2021-0 Yes [id number] 1{scoop Take 1 Univers lose, with 9-23 } Scoop by ity o f Sugar, 00:00: mouth [place] ([employer], 00 daily. Medical SUCROSE,) Mixed with Bran ch powder water Methylcellu 2021-0 Yes [id number] 1{scoop Take 1 Univers lose, with 9-23 } Scoop by ity o f Sugar, 00:00: mouth [place] ([employer], 00 daily. Medical SUCROSE,) Mixed with Bran ch powder water Methylcellu 2021-0 Yes [id number] 1{scoop Take 1 Univers lose, with 9-23 } Scoop by ity o f Sugar, 00:00: mouth [place] ([facility], 00 daily. Medical SUCROSE,) Mixed with Bran ch powder water Methylcellu 2021-0 Yes [id number] 1{scoop Take 1 Univers lose, with 9-23 } Scoop by ity o f Sugar, 00:00: mouth [place] ([facility], 00 daily. Medical SUCROSE,) Mixed with Bran ch powder water Methylcellu 2021-0 Yes [id number] 1{scoop Take 1 Univers lose, with 9-23 } Scoop by ity o f Sugar, 00:00: mouth [place] ([employer], 00 daily. Medical SUCROSE,) Mixed with Bran ch powder water Methylcellu 2021-0 Yes [id number] 1{scoop Take 1 Univers lose, with 9-23 } Scoop by ity o f Sugar, 00:00: mouth [place] ([employer], 00 daily. Medical SUCROSE,) Mixed with Bran ch powder water Methylcellu 2021-0 Yes [id number] 1{scoop Take 1 Univers lose, with 9-23 } Scoop by ity o f Sugar, 00:00: mouth [place] ([employer], 00 daily. Medical SUCROSE,) Mixed with Bran ch powder water Methylcellu 2021-0 Yes [id number] 1{scoop Take 1 Univers lose, with 9-23 } Scoop by ity o f Sugar, 00:00: mouth [place] ([employer], 00 daily. Medical SUCROSE,) Mixed with Bran ch powder water Methylcellu 2021-0 Yes [id number] 1{scoop Take 1 Univers lose, with 9-23 } Scoop by ity o f Sugar, 00:00: mouth [place] ([employer], 00 daily. Medical SUCROSE,) Mixed with Bran ch powder water Methylcellu 2021-0 Yes [id number] 1{scoop Take 1 Univers lose, with 9-23 } Scoop by ity o f Sugar, 00:00: mouth [place] ([employer], 00 daily. Medical SUCROSE,) Mixed with Bran ch powder water Methylcellu 2021-0 Yes [id number] 1{scoop Take 1 Univers lose, with 9-23 } Scoop by ity o f Sugar, 00:00: mouth [place] ([employer], 00 daily. Medical SUCROSE,) Mixed with Bran ch powder water Methylcellu 2021-0 Yes [id number] 1{scoop Take 1 Univers lose, with 9-23 } Scoop by ity o f Sugar, 00:00: mouth [place] ([employer], 00 daily. Medical SUCROSE,) Mixed with Bran ch powder water Methylcellu 2021-0 Yes [id number] 1{scoop Take 1 Univers lose, with 9-23 } Scoop by ity o f Sugar, 00:00: mouth [place] ([employer], 00 daily. Medical SUCROSE,) Mixed with Bran ch powder water Methylcellu 2021-0 Yes [id number] 1{scoop Take 1 Univers lose, with 9-23 } Scoop by ity o f Sugar, 00:00: mouth [place] ([employer], 00 daily. Medical SUCROSE,) Mixed with Bran ch powder water Methylcellu 2021-0 Yes [id number] 1{scoop Take 1 Univers lose, with 9-23 } Scoop by ity o f Sugar, 00:00: mouth [place] ([employer], 00 daily. Medical SUCROSE,) Mixed with Bran ch powder water Methylcellu 2021-0 Yes [id number] 1{scoop Take 1 Univers lose, with 9-23 } Scoop by ity o f Sugar, 00:00: mouth [place] ([employer], 00 daily. Medical SUCROSE,) Mixed with Bran ch powder water Methylcellu 2021-0 Yes [id number] 1{scoop Take 1 Univers lose, with 9-23 } Scoop by ity o f Sugar, 00:00: mouth [place] ([employer], 00 daily. Medical SUCROSE,) Mixed with Bran ch powder water Methylcellu 2021-0 Yes [id number] 1{scoop Take 1 Univers lose, with 9-23 } Scoop by ity o f Sugar, 00:00: mouth [place] ([facility], 00 daily. Medical SUCROSE,) Mixed with Bran ch powder water Methylcellu 2021-0 Yes [id number] 1{scoop Take 1 Univers lose, with 9-23 } Scoop by ity o f Sugar, 00:00: mouth [place] ([employer], 00 daily. Medical SUCROSE,) Mixed with Bran ch powder water Methylcellu 2021-0 Yes [id number] 1{scoop Take 1 Univers lose, with 9-23 } Scoop by ity o f Sugar, 00:00: mouth [place] ([employer], 00 daily. Medical SUCROSE,) Mixed with Bran ch powder water Methylcellu 2021-0 Yes [id number] 1{scoop Take 1 Univers lose, with 9-23 } Scoop by ity o f Sugar, 00:00: mouth [place] ([employer], 00 daily. Medical SUCROSE,) Mixed with Bran ch powder water Methylcellu 2021-0 Yes [id number] 1{scoop Take 1 Univers lose, with 9-23 } Scoop by ity o f Sugar, 00:00: mouth [place] ([employer], 00 daily. Medical SUCROSE,) Mixed with Bran ch powder water Methylcellu 2021-0 Yes [id number] 1{scoop Take 1 Univers lose, with 9-23 } Scoop by ity o f Sugar, 00:00: mouth [place] ([employer], 00 daily. Medical SUCROSE,) Mixed with Bran ch powder water Methylcellu 2021-0 Yes [id number] 1{scoop Take 1 Univers lose, with 9-23 } Scoop by ity o f Sugar, 00:00: mouth [place] ([employer], 00 daily. Medical SUCROSE,) Mixed with Bran ch powder water Methylcellu 2021-0 Yes [id number] 1{scoop Take 1 Univers lose, with 9-23 } Scoop by ity o f Sugar, 00:00: mouth [place] ([employer], 00 daily. Medical SUCROSE,) Mixed with Bran ch powder water Methylcellu 2021-0 Yes [id number] 1{scoop Take 1 Univers lose, with 9-23 } Scoop by ity o f Sugar, 00:00: mouth [place] ([employer], 00 daily. Medical SUCROSE,) Mixed with Bran ch powder water Methylcellu 2021-0 Yes [id number] 1{scoop Take 1 Univers lose, with 9-23 } Scoop by ity o f Sugar, 00:00: mouth [place] ([employer], 00 daily. Medical SUCROSE,) Mixed with Bran ch powder water Methylcellu 2021-0 Yes [id number] 1{scoop Take 1 Univers lose, with 9-23 } Scoop by ity o f Sugar, 00:00: mouth [place] ([employer], 00 daily. Medical SUCROSE,) Mixed with Bran ch powder water Methylcellu 2021-0 Yes [id number] 1{scoop Take 1 Univers lose, with 9-23 } Scoop by ity o f Sugar, 00:00: mouth [place] (CITRUCEL, 00 daily. Medical SUCROSE,) Mixed with Bran ch powder water Methylcellu 2021-0 Yes [id number] 1{scoop Take 1 [facility] lose, with 9-23 } Scoop by ity o f Sugar, 00:00: mouth [place] (CITRUCEL, 00 daily. Medical SUCROSE,) Mixed with Bran ch powder water Methylcellu 2021-0 Yes [id number] 1{scoop Take 1 [facility] lose, with 9-23 } Scoop by ity o f Sugar, 00:00: mouth [place] (CITRUCEL, 00 daily. Medical SUCROSE,) Mixed with Bran ch powder water Methylcellu 2021-0 Yes [id number] 1{scoop Take 1 [facility] lose, with 9-23 } Scoop by ity o f Sugar, 00:00: mouth [place] (CITRUCEL, 00 daily. Medical SUCROSE,) Mixed with Bran ch powder water Methylcellu 1-0 Yes [id number] 1{scoop Take 1 [facility] lose, with 9-23 } Scoop by ity o f Sugar, 00:00: mouth [place] (CITRUCEL, 00 daily. Medical SUCROSE,) Mixed with Bran ch powder water Methylcellu 1-0 Yes [id number] 1{scoop Take 1 [facility] lose, with 9-23 } Scoop by ity o f Sugar, 00:00: mouth [place] (CITRUCEL, 00 daily. Medical SUCROSE,) Mixed with Bran ch powder water Methylcellu 1-0 Yes [id number] 1{scoop Take 1 [facility] lose, with 9-23 } Scoop by ity o f Sugar, 00:00: mouth [place] (CITRUCEL, 00 daily. Medical SUCROSE,) Mixed with Bran ch powder water Methylcellu 2021-0 Yes [id number] 1{scoop Take 1 [facility] lose, with 9-23 } Scoop by ity o f Sugar, 00:00: mouth [place] (CITRUCEL, 00 daily. Medical SUCROSE,) Mixed with Bran ch powder water Methylcellu 2021-0 Yes [id number] 1{scoop Take 1 [facility] lose, with 9-23 } Scoop by ity o f Sugar, 00:00: mouth [place] (CITRUCEL, 00 daily. Medical SUCROSE,) Mixed with Bran ch powder water Methylcellu 2021-0 Yes [id number] 1{scoop Take 1 [facility] lose, with 9-23 } Scoop by ity o f Sugar, 00:00: mouth [place] (CITRUCEL, 00 daily. Medical SUCROSE,) Mixed with Bran ch powder water Methylcellu 2021-0 Yes [id number] 1{scoop Take 1 [facility] lose, with 9-23 } Scoop by ity o f Sugar, 00:00: mouth [place] (CITRUCEL, 00 daily. Medical SUCROSE,) Mixed with Bran ch powder water Methylcellu 2021-0 Yes [id number] 1{scoop Take 1 [facility] lose, with 9-23 } Scoop by ity o f Sugar, 00:00: mouth [place] (CITRUCEL, 00 daily. Medical SUCROSE,) Mixed with Bran ch powder water Methylcellu 2021-0 Yes [id number] 1{scoop Take 1 [facility] lose, with 9-23 } Scoop by ity o f Sugar, 00:00: mouth [place] (CITRUCEL, 00 daily. Medical SUCROSE,) Mixed with Bran ch powder water Methylcellu 1-0 Yes [id number] 1{scoop Take 1 [facility] lose, with 9-23 } Scoop by ity o f Sugar, 00:00: mouth [place] (CITRUCEL, 00 daily. Medical SUCROSE,) Mixed with Bran ch powder water Methylcellu 2021-0 Yes [id number] 1{scoop Take 1 [facility] lose, with 9-23 } Scoop by ity o f Sugar, 00:00: mouth [place] (CITRUCEL, 00 daily. Medical SUCROSE,) Mixed with Bran ch powder water Methylcellu 2021-0 Yes [id number] 1{scoop Take 1 [facility] lose, with 9-23 } Scoop by ity o f Sugar, 00:00: mouth [place] (CITRUCEL, 00 daily. Medical SUCROSE,) Mixed with Bran ch powder water Methylcellu 2021-0 Yes [id number] 1{scoop Take 1 [facility] lose, with 9-23 } Scoop by ity o f Sugar, 00:00: mouth [place] (CITRUCEL, 00 daily. Medical SUCROSE,) Mixed with Bran ch powder water Methylcellu 2021-0 Yes [id number] 1{scoop Take 1 [facility] lose, with 9-23 } Scoop by ity o f Sugar, 00:00: mouth [place] (CITRUCEL, 00 daily. Medical SUCROSE,) Mixed with Bran ch powder water Methylcellu 2021-0 Yes [id number] 1{scoop Take 1 [facility] lose, with 9-23 } Scoop by ity o f Sugar, 00:00: mouth [place] (CITRUCEL, 00 daily. Medical SUCROSE,) Mixed with Bran ch powder water Methylcellu 2021-0 Yes [id number] 1{scoop Take 1 [facility] lose, with 9-23 } Scoop by ity o f Sugar, 00:00: mouth [place] (CITRUCEL, 00 daily. Medical SUCROSE,) Mixed with Bran ch powder water Methylcellu 2021-0 Yes [id number] 1{scoop Take 1 [facility] lose, with 9-23 } Scoop by ity o f Sugar, 00:00: mouth [place] (CITRUCEL, 00 daily. Medical SUCROSE,) Mixed with Bran ch powder water Methylcellu 2021-0 Yes [id number] 1{scoop Take 1 [facility] lose, with 9-23 } Scoop by ity o f Sugar, 00:00: mouth [place] (CITRUCEL, 00 daily. Medical SUCROSE,) Mixed with Bran ch powder water Methylcellu 2021-0 Yes [id number] 1{scoop Take 1 [facility] lose, with 9-23 } Scoop by ity o f Sugar, 00:00: mouth [place] (CITRUCEL, 00 daily. Medical SUCROSE,) Mixed with Bran ch powder water Methylcellu 2021-0 Yes [id number] 1{scoop Take 1 [facility] lose, with 9-23 } Scoop by ity o f Sugar, 00:00: mouth [place] (CITRUCEL, 00 daily. Medical SUCROSE,) Mixed with Bran ch powder water Methylcellu 2021-0 Yes [id number] 1{scoop Take 1 [facility] lose, with 9-23 } Scoop by ity o f Sugar, 00:00: mouth [place] (CITRUCEL, 00 daily. Medical SUCROSE,) Mixed with Bran ch powder water Methylcellu 2021-0 Yes [id number] 1{scoop Take 1 [facility] lose, with 9-23 } Scoop by ity o f Sugar, 00:00: mouth [place] (CITRUCEL, 00 daily. Medical SUCROSE,) Mixed with Bran ch powder water Methylcellu 2021-0 Yes [id number] 1{scoop Take 1 [facility] lose, with 9-23 } Scoop by ity o f Sugar, 00:00: mouth [place] (CITRUCEL, 00 daily. Medical SUCROSE,) Mixed with Bran ch powder water Methylcellu 2021-0 Yes [id number] 1{scoop Take 1 [facility] lose, with 9-23 } Scoop by ity o f Sugar, 00:00: mouth [place] (CITRUCEL, 00 daily. Medical SUCROSE,) Mixed with Bran ch powder water Methylcellu 2021-0 Yes [id number] 1{scoop Take 1 [facility] lose, with 9-23 } Scoop by ity o f Sugar, 00:00: mouth [place] (CITRUCEL, 00 daily. Medical SUCROSE,) Mixed with Bran ch powder water Methylcellu 2021-0 Yes [id number] 1{scoop Take 1 [facility] lose, with 9-23 } Scoop by ity o f Sugar, 00:00: mouth [place] (CITRUCEL, 00 daily. Medical SUCROSE,) Mixed with Bran ch powder water Methylcellu 2021-0 Yes [id number] 1{scoop Take 1 [facility] lose, with 9-23 } Scoop by ity o f Sugar, 00:00: mouth [place] (CITRUCEL, 00 daily. Medical SUCROSE,) Mixed with Bran ch powder water Methylcellu 2021-0 Yes [id number] 1{scoop Take 1 [facility] lose, with 9-23 } Scoop by ity o f Sugar, 00:00: mouth [place] (CITRUCEL, 00 daily. Medical SUCROSE,) Mixed with Bran ch powder water Methylcellu 2021-0 Yes [id number] 1{scoop Take 1 [facility] lose, with 9-23 } Scoop by ity o f Sugar, 00:00: mouth [place] (CITRUCEL, 00 daily. Medical SUCROSE,) Mixed with Bran ch powder water Methylcellu 2021-0 Yes [id number] 1{scoop Take 1 [facility] lose, with 9-23 } Scoop by ity o f Sugar, 00:00: mouth [place] (CITRUCEL, 00 daily. Medical SUCROSE,) Mixed with Bran ch powder water Methylcellu 2021-0 Yes [id number] 1{scoop Take 1 [facility] lose, with 9-23 } Scoop by ity o f Sugar, 00:00: mouth [place] (CITRUCEL, 00 daily. Medical SUCROSE,) Mixed with Bran ch powder water Methylcellu 2021-0 Yes [id number] 1{scoop Take 1 [facility] lose, with 9-23 } Scoop by ity o f Sugar, 00:00: mouth [place] (CITRUCEL, 00 daily. Medical SUCROSE,) Mixed with Bran ch powder water Methylcellu 2021-0 Yes [id number] 1{scoop Take 1 [facility] lose, with 9-23 } Scoop by ity o f Sugar, 00:00: mouth [place] (CITRUCEL, 00 daily. Medical SUCROSE,) Mixed with Bran ch powder water chlorhexidi 2021-0 Yes [id number] Apply to [facility] ne 4 % 9-22 area(s) ity of external 00:00: once daily [facility] as liquid 00 as needed Medical for Wound Branch care. chlorhexidi 2021-0 Yes [id number] Apply to [facility] ne 4 % 9-22 area(s) ity of external 00:00: once daily [facility] as liquid 00 as needed Medical for Wound Branch care. chlorhexidi 2021-0 Yes [id number] Apply to [facility] ne 4 % 9-22 area(s) ity of external 00:00: once daily [facility] as liquid 00 as needed Medical for Wound Branch care. chlorhexidi 2021-0 Yes [id number] Apply to [facility] ne 4 % 9-22 area(s) ity of external 00:00: once daily [facility] as liquid 00 as needed Medical for Wound [facility] care. chlorhexidi 2021-0 Yes [id number] Apply to [facility] ne 4 % 9-22 area(s) ity of external 00:00: once daily [facility] as liquid 00 as needed Medical for Wound Branch care. chlorhexidi 2021-0 Yes [id number] Apply to [facility] ne 4 % 9-22 area(s) ity of external 00:00: once daily [facility] as liquid 00 as needed Medical for Wound Branch care. chlorhexidi 0 Yes [id number] Apply to [facility] ne 4 % 9-22 area(s) ity of external 00:00: once daily [facility] as liquid 00 as needed Medical for Wound Branch care. chlorhexidi 0 Yes [id number] Apply to [facility] ne 4 % 9-22 area(s) ity of external 00:00: once daily [facility] as liquid 00 as needed Medical for Wound Branch care. chlorhexidi 0 Yes [id number] Apply to [facility] ne 4 % 9-22 area(s) ity of external 00:00: once daily [facility] as liquid 00 as needed Medical for Wound Branch care. chlorhexidi 0 Yes [id number] Apply to [facility] ne 4 % 9-22 area(s) ity of external 00:00: once daily [facility] as liquid 00 as needed Medical for Wound Branch care. chlorhexidi 0 Yes [id number] Apply to [facility] ne 4 % 9-22 area(s) ity of external 00:00: once daily [facility] as liquid 00 as needed Medical for Wound Branch care. chlorhexidi 0 Yes [id number] Apply to [facility] ne 4 % 9-22 area(s) ity of external 00:00: once daily [facility]ark[facility] as liquid 00 as needed Medical for Wound Branch care. chlorhexidi 0 Yes [id number] Apply to [facility] ne 4 % 9-22 area(s) ity of external 00:00: once daily [facility] as liquid 00 as needed Medical for Wound Branch care. chlorhexidi 0 Yes [id number] Apply to [facility] ne 4 % 9-22 area(s) ity of external 00:00: once daily [facility] as liquid 00 as needed Medical for Wound Branch care. chlorhexidi 0 Yes [id number] Apply to [facility] ne 4 % 9-22 area(s) ity of external 00:00: once daily [facility] as liquid 00 as needed Medical for Wound Branch care. chlorhexidi 0 Yes [id number] Apply to [facility] ne 4 % 9-22 area(s) ity of external 00:00: once daily [facility] as liquid 00 as needed Medical for Wound Branch care. chlorhexidi 0 Yes [id number] Apply to [facility] ne 4 % 9-22 area(s) ity of external 00:00: once daily [facility] as liquid 00 as needed Medical for Wound Branch care. chlorhexidi 0 Yes [id number] Apply to [facility] ne 4 % 9-22 area(s) ity of external 00:00: once daily [facility] as liquid 00 as needed Medical for Wound Branch care. chlorhexidi 0 Yes [id number] Apply to [facility] ne 4 % 9-22 area(s) ity of external 00:00: once daily [facility] liquid 00 as needed Medical for Wound Branch care. chlorhexidi 0 Yes [id number] Apply to [facility] ne 4 % 9-22 area(s) ity of external 00:00: once daily [facility] as liquid 00 as needed Medical for Wound Branch care. chlorhexidi 0 Yes [id number] Apply to [facility] ne 4 % 9-22 area(s) ity of external 00:00: once daily [facility] as liquid 00 as needed Medical for Wound Branch care. chlorhexidi 0 Yes [id number] Apply to [facility] ne 4 % 9-22 area(s) ity of external 00:00: once daily [facility] as liquid 00 as needed Medical for Wound Branch care. chlorhexidi 0 Yes [id number] Apply to [facility] ne 4 % 9-22 area(s) ity of external 00:00: once daily [facility] as liquid 00 as needed Medical for Wound Branch care. chlorhexidi 0 Yes [id number] Apply to [facility] ne 4 % 9-22 area(s) ity of external 00:00: once daily [facility] as liquid 00 as needed Medical for Wound Branch care. chlorhexidi 0 Yes [id number] Apply to [facility] ne 4 % 9-22 area(s) ity of external 00:00: once daily [facility] as liquid 00 as needed Medical for Wound Branch care. chlorhexidi 2020-0 Yes [id number] Apply to [facility] ne 4 % 9-22 area(s) ity of external 00:00: once daily [facility] as liquid 00 as needed Medical for Wound Branch care. chlorhexidi 2020-0 Yes [id number] Apply to [facility] ne 4 % 9-22 area(s) ity of external 00:00: once daily [facility] as liquid 00 as needed Medical for Wound Branch care. chlorhexidi 0 Yes [id number] Apply to [facility] ne 4 % 9-22 area(s) ity of external 00:00: once daily [facility] as liquid 00 as needed Medical for Wound Branch care. chlorhexidi 0 Yes [id number] Apply to [facility] ne 4 % 9-22 area(s) ity of external 00:00: once daily [facility] as liquid 00 as needed Medical for Wound Branch care. chlorhexidi 0 Yes [id number] Apply to [facility] ne 4 % 9-22 area(s) ity of external 00:00: once daily [facility] as liquid 00 as needed Medical for Wound Branch care. chlorhexidi 0 Yes [id number] Apply to [facility] ne 4 % 9-22 area(s) ity of external 00:00: once daily [facility] as liquid 00 as needed Medical for Wound Branch care. chlorhexidi 0 Yes [id number] Apply to [facility] ne 4 % 9-22 area(s) ity of external 00:00: once daily [facility] as liquid 00 as needed Medical for Wound Branch care. chlorhexidi 0 Yes [id number] Apply to [facility] ne 4 % 9-22 area(s) ity of external 00:00: once daily [facility] as liquid 00 as needed Medical for Wound Branch care. chlorhexidi 0 Yes [id number] Apply to [facility] ne 4 % 9-22 area(s) ity of external 00:00: once daily [facility] as liquid 00 as needed Medical for Wound Branch care. chlorhexidi 0 Yes [id number] Apply to [facility] ne 4 % 9-22 area(s) ity of external 00:00: once daily [facility] as liquid 00 as needed Medical for Wound Branch care. chlorhexidi 0 Yes [id number] Apply to [facility] ne 4 % 9-22 area(s) ity of external 00:00: once daily [facility] as liquid 00 as needed Medical for Wound Branch care. chlorhexidi 2020-0 Yes [id number] Apply to [facility] ne 4 % 9-22 area(s) ity of external 00:00: once daily [facility] as liquid 00 as needed Medical for Wound Branch care. chlorhexidi 2020-0 Yes [id number] Apply to [facility] ne 4 % 9-22 area(s) ity of external 00:00: once daily [facility] as liquid 00 as needed Medical for Wound Branch care. chlorhexidi 2020-0 Yes [id number] Apply to [facility] ne 4 % 9-22 area(s) ity of external 00:00: once daily [facility] as liquid 00 as needed Medical for Wound Branch care. chlorhexidi 0 Yes [id number] Apply to [facility] ne 4 % 9-22 area(s) ity of external 00:00: once daily [facility] as liquid 00 as needed Medical for Wound Branch care. chlorhexidi 0 Yes [id number] Apply to [facility] ne 4 % 9-22 area(s) ity of external 00:00: once daily [facility] as liquid 00 as needed Medical for Wound Branch care. chlorhexidi 0 Yes [id number] Apply to [facility] ne 4 % 9-22 area(s) ity of external 00:00: once daily [facility] as liquid 00 as needed Medical for Wound Branch care. chlorhexidi 2020-0 Yes [id number] Apply to [facility] ne 4 % 9-22 area(s) ity of external 00:00: once daily [facility] as liquid 00 as needed Medical for Wound Branch care. chlorhexidi 0 Yes [id number] Apply to [facility] ne 4 % 9-22 area(s) ity of external 00:00: once daily [facility] as liquid 00 as needed Medical for Wound Branch care. chlorhexidi 0 Yes [id number] Apply to [facility] ne 4 % 9-22 area(s) ity of external 00:00: once daily [facility] as liquid 00 as needed Medical for Wound Branch care. chlorhexidi 0 Yes [id number] Apply to [facility] ne 4 % 9-22 area(s) ity of external 00:00: once daily [facility] as liquid 00 as needed Medical for Wound Branch care. chlorhexidi 2020-0 Yes [id number] Apply to [facility] ne 4 % 9-22 area(s) ity of external 00:00: once daily [facility] as liquid 00 as needed Medical for Wound Branch care. chlorhexidi 2020-0 Yes [id number] Apply to [facility] ne 4 % 9-22 area(s) ity of external 00:00: once daily [facility] as liquid 00 as needed Medical for Wound Branch care. chlorhexidi 0 Yes [id number] Apply to [facility] ne 4 % 9-22 area(s) ity of external 00:00: once daily [facility] as liquid 00 as needed Medical for Wound Branch care. chlorhexidi 0 Yes [id number] Apply to [facility] ne 4 % 9-22 area(s) ity of external 00:00: once daily [facility] as liquid 00 as needed Medical for Wound Branch care. chlorhexidi 0 Yes [id number] Apply to [facility] ne 4 % 9-22 area(s) ity of external 00:00: once daily [facility] as liquid 00 as needed Medical for Wound Branch care. chlorhexidi 0 Yes [id number] Apply to [facility] ne 4 % 9-22 area(s) ity of external 00:00: once daily [facility] as liquid 00 as needed Medical for Wound Branch care. chlorhexidi 0 Yes [id number] Apply to [facility] ne 4 % 9-22 area(s) ity of external 00:00: once daily [facility] as liquid 00 as needed Medical for Wound Branch care. chlorhexidi 0 Yes [id number] Apply to [facility] ne 4 % 9-22 area(s) ity of external 00:00: once daily [facility] as liquid 00 as needed Medical for Wound Branch care. chlorhexidi 0 Yes [id number] Apply to [facility] ne 4 % 9-22 area(s) ity of external 00:00: once daily [facility] as liquid 00 as needed Medical for Wound Branch care. chlorhexidi 0 Yes [id number] Apply to [facility] ne 4 % 9-22 area(s) ity of external 00:00: once daily [facility] as liquid 00 as needed Medical for Wound Branch care. chlorhexidi 0 Yes [id number] Apply to [facility] ne 4 % 9-22 area(s) ity of external 00:00: once daily [facility] as liquid 00 as needed Medical for Wound Branch care. chlorhexidi 2020-0 Yes [id number] Apply to [facility] ne 4 % 9-22 area(s) ity of external 00:00: once daily [facility] as liquid 00 as needed Medical for Wound Branch care. chlorhexidi 2020-0 Yes [id number] Apply to [facility] ne 4 % 9-22 area(s) ity of external 00:00: once daily [facility] as liquid 00 as needed Medical for Wound Branch care. chlorhexidi 0 Yes [id number] Apply to [facility] ne 4 % 9-22 area(s) ity of external 00:00: once daily [facility] as liquid 00 as needed Medical for Wound Branch care. chlorhexidi 0 Yes [id number] Apply to [facility] ne 4 % 9-22 area(s) ity of external 00:00: once daily [facility] as liquid 00 as needed Medical for Wound Branch care. chlorhexidi 0 Yes [id number] Apply to [facility] ne 4 % 9-22 area(s) ity of external 00:00: once daily [facility] as liquid 00 as needed Medical for Wound Branch care. chlorhexidi 0 Yes [id number] Apply to [facility] ne 4 % 9-22 area(s) ity of external 00:00: once daily [facility] as liquid 00 as needed Medical for Wound Branch care. chlorhexidi 0 Yes [id number] Apply to [facility] ne 4 % 9-22 area(s) ity of external 00:00: once daily [facility] as liquid 00 as needed Medical for Wound Branch care. chlorhexidi 0 Yes [id number] Apply to [facility] ne 4 % 9-22 area(s) ity of external 00:00: once daily [facility] as liquid 00 as needed Medical for Wound Branch care. chlorhexidi 0 Yes [id number] Apply to [facility] ne 4 % 9-22 area(s) ity of external 00:00: once daily [facility] as liquid 00 as needed Medical for Wound Branch care. chlorhexidi 0 Yes [id number] Apply to [facility] ne 4 % 9-22 area(s) ity of external 00:00: once daily [facility] as liquid 00 as needed Medical for Wound Branch care. chlorhexidi 0 Yes [id number] Apply to [facility] ne 4 % 9-22 area(s) ity of external 00:00: once daily [facility] as liquid 00 as needed Medical for Wound Branch care. chlorhexidi 0 Yes [id number] Apply to [facility] ne 4 % 9-22 area(s) ity of external 00:00: once daily [facility] as liquid 00 as needed Medical for Wound Branch care. chlorhexidi 2020-0 Yes [id number] Apply to [facility] ne 4 % 9-22 area(s) ity of external 00:00: once daily [facility] as liquid 00 as needed Medical for Wound Branch care. chlorhexidi 0 Yes [id number] Apply to [facility] ne 4 % 9-22 area(s) ity of external 00:00: once daily [facility] as liquid 00 as needed Medical for Wound Branch care. chlorhexidi 0 Yes [id number] Apply to [facility] ne 4 % 9-22 area(s) ity of external 00:00: once daily [facility] as liquid 00 as needed Medical for Wound Branch care. chlorhexidi 0 Yes [id number] Apply to [facility] ne 4 % 9-22 area(s) ity of external 00:00: once daily [facility] as liquid 00 as needed Medical for Wound Branch care. chlorhexidi 0 Yes [id number] Apply to [facility] ne 4 % 9-22 area(s) ity of external 00:00: once daily [facility] as liquid 00 as needed Medical for Wound Branch care. chlorhexidi 0 Yes [id number] Apply to [facility] ne 4 % 9-22 area(s) ity of external 00:00: once daily [facility] as liquid 00 as needed Medical for Wound Branch care. chlorhexidi 0 Yes [id number] Apply to [facility] ne 4 % 9-22 area(s) ity of external 00:00: once daily [facility] as liquid 00 as needed Medical for Wound Branch care. chlorhexidi 0 Yes [id number] Apply to [facility] ne 4 % 9-22 area(s) ity of external 00:00: once daily [facility] as liquid 00 as needed Medical for Wound Branch care. chlorhexidi 0 Yes [id number] Apply to [facility] ne 4 % 9-22 area(s) ity of external 00:00: once daily [facility] as liquid 00 as needed Medical for Wound Branch care. chlorhexidi 2020-0 Yes [id number] Apply to [facility] ne 4 % 9-22 area(s) ity of external 00:00: once daily [facility] as liquid 00 as needed Medical for Wound Branch care. chlorhexidi 2020-0 Yes [id number] Apply to [facility] ne 4 % 9-22 area(s) ity of external 00:00: once daily [facility] as liquid 00 as needed Medical for Wound Branch care. chlorhexidi 0 Yes [id number] Apply to [facility] ne 4 % 9-22 area(s) ity of external 00:00: once daily [facility] as liquid 00 as needed Medical for Wound Branch care. chlorhexidi 0 Yes [id number] Apply to [facility] ne 4 % 9-22 area(s) ity of external 00:00: once daily [facility] as liquid 00 as needed Medical for Wound Branch care. chlorhexidi 0 Yes [id number] Apply to [facility] ne 4 % 9-22 area(s) ity of external 00:00: once daily [facility] as liquid 00 as needed Medical for Wound Branch care. chlorhexidi 0 Yes [id number] Apply to [facility] ne 4 % 9-22 area(s) ity of external 00:00: once daily [facility] as liquid 00 as needed Medical for Wound Branch care. chlorhexidi 0 Yes [id number] Apply to [facility] ne 4 % 9-22 area(s) ity of external 00:00: once daily [facility] as liquid 00 as needed Medical for Wound Branch care. ONETOUCH Yes [id number] Use as [facility] DELICA PLUS 7-27 directed ity of LANCET 30 00:00: for twice [facility] as gauge Misc 00 a day Medical glucose Branch monitoring for ICD E11.9 TOUCH Yes [id number] Use as [facility] DELICA PLUS 7-27 directed ity of LANCET 30 00:00: for twice [facility]ark[facility] as gauge Misc 00 a day Medical glucose Branch monitoring for ICD E11.9 TOUCH Yes [id number] Use as [facility] DELICA PLUS 7-27 directed ity of LANCET 30 00:00: for twice [facility]ark[facility] as gauge Misc 00 a day Medical glucose Branch monitoring for ICD E11.9 ONETOUCH Yes [id number] Use as [facility] DELICA PLUS 7-27 directed ity of LANCET 30 00:00: for twice [facility]ark[facility] as gauge Misc 00 a day Medical glucose Branch monitoring for ICD E11.9 ONETOUCH Yes [id number] Use as [facility] DELICA PLUS 7-27 directed ity of LANCET 30 00:00: for twice [facility]ark[facility] as gauge Misc 00 a day Medical glucose Branch monitoring for ICD E11.9 ONETOUCH 2020-0 Yes [id number] Use as [facility] DELICA PLUS 7-27 directed ity of LANCET 30 00:00: for twice [facility]ark[facility] as gauge Misc 00 a day Medical glucose Branch monitoring for ICD E11.9 ONETOUCH 2020-0 Yes [id number] Use as [facility] DELICA PLUS 7-27 directed ity of LANCET 30 00:00: for twice [facility]arkis as gauge Misc 00 a day Medical glucose Branch monitoring for ICD E11.9 ONETOUCH 2020-0 Yes [id number] Use as [facility] DELICA PLUS 7-27 directed ity of LANCET 30 00:00: for twice [facility]ark[facility] as gauge Misc 00 a day Medical glucose Branch monitoring for ICD E11.9 ONETOUCH 2020-0 Yes [id number] Use as [facility] DELICA PLUS 7-27 directed ity of LANCET 30 00:00: for twice [facility]arkis as gauge Misc 00 a day Medical glucose Branch monitoring for ICD E11.9 ONETOUCH 2020-0 Yes [id number] Use as [facility] DELICA PLUS 7-27 directed ity of LANCET 30 00:00: for twice [facility]arkis as gauge Misc 00 a day Medical glucose Branch monitoring for ICD E11.9 ONETOUCH 2020-0 Yes [id number] Use as [facility] DELICA PLUS 7-27 directed ity of LANCET 30 00:00: for twice [facility]ark[facility] as gauge Misc 00 a day Medical glucose Branch monitoring for ICD E11.9 ONETOUCH 2020-0 Yes [id number] Use as [facility] DELICA PLUS 7-27 directed ity of LANCET 30 00:00: for twice [facility]arkis as gauge Misc 00 a day Medical glucose Branch monitoring for ICD E11.9 ONETOUCH 2020-0 Yes [id number] Use as [facility] DELICA PLUS 7-27 directed ity of LANCET 30 00:00: for twice [facility]ark[facility] as gauge Misc 00 a day Medical glucose Branch monitoring for ICD E11.9 ONETOUCH 2020-0 Yes [id number] Use as [facility] DELICA PLUS 7-27 directed ity of LANCET 30 00:00: for twice [facility]ark[facility] as gauge Misc 00 a day Medical glucose Branch monitoring for ICD E11.9 ONETOUCH 2020-0 Yes [id number] Use as [facility] DELICA PLUS 7-27 directed ity of LANCET 30 00:00: for twice [place] as gauge Misc 00 a day Medical glucose Branch monitoring for ICD E11.9 ONETOUCH 2020-0 Yes [id number] Use as [facility] DELICA PLUS 7-27 directed [facility] of [facility] 30 00:00: for twice [place] as gauge Misc 00 a day Medical glucose Branch monitoring for ICD E11.9 ONETOUCH 2020-0 Yes [id number] Use as [facility] DELICA PLUS 7-27 directed ity of LANCET 30 00:00: for twice [place] as gauge Misc 00 a day Medical glucose Branch monitoring for ICD E11.9 ONETOUCH 2020-0 Yes [id number] Use as [facility] DELICA PLUS 7-27 directed ity of L[facility]ET 30 00:00: for twice [place] as gauge Misc 00 a day Medical glucose Branch monitoring for ICD E11.9 ONETOUCH 2020-0 Yes [id number] Use as [facility] DELICA PLUS 7-27 directed ity of LANCET 30 00:00: for twice [place] as gauge Misc 00 a day Medical glucose Branch monitoring for ICD E11.9 ONETOUCH 2020-0 Yes [id number] Use as [facility] DELICA PLUS 7-27 directed ity of LANCET 30 00:00: for twice [place] as gauge Misc 00 a day Medical glucose Branch monitoring for ICD E11.9 ONETOUCH 2020-0 Yes [id number] Use as [facility] DELICA PLUS 7-27 directed ity of LANCET 30 00:00: for twice [place] as gauge Misc 00 a day Medical glucose Branch monitoring for ICD E11.9 ONETOUCH 2020-0 Yes [id number] Use as [facility] DELICA PLUS 7-27 directed ity of LANCET 30 00:00: for twice [place] as gauge Misc 00 a day Medical glucose Branch monitoring for ICD E11.9 ONETOUCH 2020-0 Yes [id number] Use as [facility] DELICA PLUS 7-27 directed ity of LANCET 30 00:00: for twice [place] as gauge Misc 00 a day Medical glucose Branch monitoring for ICD E11.9 ONETOUCH 2020-0 Yes [id number] Use as [facility] DELICA PLUS 7-27 directed ity of LANCET 30 00:00: for twice [place] as gauge Misc 00 a day Medical glucose Branch monitoring for ICD E11.9 ONETOUCH 2020-0 Yes [id number] Use as [facility] DELICA PLUS 7-27 directed ity of LANCET 30 00:00: for twice [place] as gauge Misc 00 a day Medical glucose Branch monitoring for ICD E11.9 ONETOUCH 2020-0 Yes [id number] Use as [facility] DELICA PLUS 7-27 directed ity of LANCET 30 00:00: for twice [place] as gauge Misc 00 a day Medical glucose Branch monitoring for ICD E11.9 ONETOUCH 2020-0 Yes [id number] Use as [facility] DELICA PLUS 7-27 directed ity of LANCET 30 00:00: for twice [place] as gauge Misc 00 a day Medical glucose Branch monitoring for ICD E11.9 ONETOUCH 2020-0 Yes [id number] Use as [facility] DELICA PLUS 7-27 directed ity of LANCET 30 00:00: for twice [place] as gauge Misc 00 a day Medical glucose Branch monitoring for ICD E11.9 ONETOUCH 2020-0 Yes [id number] Use as [facility] DELICA PLUS 7-27 directed ity of LANCET 30 00:00: for twice [place] as gauge Misc 00 a day Medical glucose Branch monitoring for ICD E11.9 ONETOUCH 2020-0 Yes [id number] Use as [facility] DELICA PLUS 7-27 directed ity of LANCET 30 00:00: for twice [place] as gauge Misc 00 a day Medical glucose Branch monitoring for ICD E11.9 ONETOUCH 2020-0 Yes [id number] Use as [facility] DELICA PLUS 7-27 directed ity of LANCET 30 00:00: for twice [place] as gauge Misc 00 a day Medical glucose Branch monitoring for ICD E11.9 ONETOUCH 2020-0 Yes [id number] Use as [facility] DELICA PLUS 7-27 directed ity of LANCET 30 00:00: for twice [place] as gauge Misc 00 a day Medical glucose Branch monitoring for ICD E11.9 ONETOUCH 2020-0 Yes [id number] Use as [facility] DELICA PLUS 7-27 directed ity of LANCET 30 00:00: for twice [place] as gauge Misc 00 a day Medical glucose Branch monitoring for ICD E11.9 ONETOUCH Yes [id number] Use as [facility] DELICA PLUS 7-27 directed ity of LANCET 30 00:00: for twice [place] as gauge Misc 00 a day Medical glucose Branch monitoring for ICD E11.9 ONETOUCH 2020-0 Yes [id number] Use as [facility] DELICA PLUS 7-27 directed ity of LANCET 30 00:00: for twice [place] as gauge Misc 00 a day Medical glucose Branch monitoring for ICD E11.9 ONETOUCH 2020- Yes [id number] Use as [facility] DELICA PLUS 7-27 directed ity of L[facility]ET 30 00:00: for twice [place] as gauge Misc 00 a day Medical glucose Branch monitoring for ICD E11.9 ONETOUCH Yes [id number] Use as [facility] DELICA PLUS 7-27 directed ity of L[facility]ET 30 00:00: for twice [place] as gauge Misc 00 a day Medical glucose Branch monitoring for ICD E11.9 ONETOUCH Yes [id number] Use as [facility] DELICA PLUS 7-27 directed ity of L[facility] 30 00:00: for twice [place] as gauge Misc 00 a day Medical glucose Branch monitoring for ICD E11.9 ONETOUCH Yes [id number] Use as [facility] DELICA PLUS 7-27 directed ity of L[facility] 30 00:00: for twice [place] as gauge Misc 00 a day Medical glucose Branch monitoring for ICD E11.9 ONETOUCH Yes [id number] Use as [facility] DELICA PLUS 7-27 directed ity of L[facility] 30 00:00: for twice [place] as gauge Misc 00 a day Medical glucose Branch monitoring for ICD E11.9 ONETOUCH Yes [id number] Use as [facility] DELICA PLUS 7-27 directed ity of L[facility] 30 00:00: for twice [place] as gauge Misc 00 a day Medical glucose Branch monitoring for ICD E11.9 ONETOUCH Yes [id number] Use as [facility] DELICA PLUS 7-27 directed ity of L[facility] 30 00:00: for twice [place] as gauge Misc 00 a day Medical glucose Branch monitoring for ICD E11.9 ONETOUCH Yes [id number] Use as [facility] DELICA PLUS 7-27 directed ity of L[facility] 30 00:00: for twice [place] as gauge Misc 00 a day Medical glucose Branch monitoring for ICD E11.9 ONETOUCH 2020-0 Yes [id number] Use as [facility] DELICA PLUS 7-27 directed ity of L[facility] 30 00:00: for twice [place] as gauge Misc 00 a day Medical glucose Branch monitoring for ICD E11.9 ONETOUCH 2020-0 Yes [id number] Use as [facility] DELICA PLUS 7-27 directed ity of L[facility] 30 00:00: for twice [place] as gauge Misc 00 a day Medical glucose Branch monitoring for ICD E11.9 ONETOUCH 2020-0 Yes [id number] Use as [facility] DELICA PLUS 7-27 directed ity of L[facility] 30 00:00: for twice [place] as gauge Misc 00 a day Medical glucose Branch monitoring for ICD E11.9 ONETOUCH 2020-0 Yes [id number] Use as [facility] DELICA PLUS 7-27 directed ity of L[facility] 30 00:00: for twice [place] as gauge Misc 00 a day Medical glucose Branch monitoring for ICD E11.9 ONETOUCH 2020-0 Yes [id number] Use as [facility] DELICA PLUS 7-27 directed ity of L[facility] 30 00:00: for twice [place] as gauge Misc 00 a day Medical glucose Branch monitoring for ICD E11.9 ONETOUCH 2020-0 Yes [id number] Use as [facility] DELICA PLUS 7-27 directed ity of L[facility] 30 00:00: for twice [place] as gauge Misc 00 a day Medical glucose Branch monitoring for ICD E11.9 ONETOUCH 2020-0 Yes [id number] Use as [facility] DELICA PLUS 7-27 directed ity of [facility] 30 00:00: for twice [place] as gauge Misc 00 a day Medical glucose Branch monitoring for ICD E11.9 ONETOUCH 2020-0 Yes [id number] Use as [facility] DELICA PLUS 7-27 directed ity of L[facility]ET 30 00:00: for twice [place] as gauge Misc 00 a day Medical glucose Branch monitoring for ICD E11.9 ONETOUCH 2020-0 Yes [id number] Use as [facility] DELICA PLUS 7-27 directed ity of [facility] 30 00:00: for twice [place] as gauge Misc 00 a day Medical glucose Branch monitoring for ICD E11.9 ONETOUCH 2020-0 Yes [id number] Use as [facility] DELICA PLUS 7-27 directed ity of L[facility] 30 00:00: for twice [place] as gauge Misc 00 a day Medical glucose Branch monitoring for ICD E11.9 ONETOUCH 2020-0 Yes [id number] Use as [facility] DELICA PLUS 7-27 directed ity of L[facility] 30 00:00: for twice [place] as gauge Misc 00 a day Medical glucose Branch monitoring for ICD E11.9 ONETOUCH 2020-0 Yes [id number] Use as [facility] DELICA PLUS 7-27 directed ity of L[facility] 30 00:00: for twice [place] as gauge Misc 00 a day Medical glucose Branch monitoring for ICD E11.9 ONETOUCH Yes [id number] Use as [facility] DELICA PLUS 7-27 directed ity of L[facility] 30 00:00: for twice [place] as gauge Misc 00 a day Medical glucose Branch monitoring for ICD E11.9 ONETOUCH Yes [id number] Use as [facility] DELICA PLUS 7-27 directed ity of L[facility]ET 30 00:00: for twice [place] as gauge Misc 00 a day Medical glucose Branch monitoring for ICD E11.9 ONETOUCH 0 Yes [id number] Use as [facility] DELICA PLUS 7-27 directed ity of L[facility] 30 00:00: for twice [place] as gauge Misc 00 a day Medical glucose Branch monitoring for ICD E11.9 ONETOUCH 0 Yes [id number] Use as [facility] DELICA PLUS 7-27 directed ity of L[facility] 30 00:00: for twice [place] as gauge Misc 00 a day Medical glucose Branch monitoring for ICD E11.9 ONETOUCH 0 Yes [id number] Use as [facility] DELICA PLUS 7-27 directed ity of L[facility] 30 00:00: for twice [place] as gauge Misc 00 a day Medical glucose Branch monitoring for ICD E11.9 ONETOUCH 2020-0 Yes [id number] Use as [facility] DELICA PLUS 7-27 directed ity of [facility] 30 00:00: for twice [place] as gauge Misc 00 a day Medical glucose Branch monitoring for ICD E11.9 ONETOUCH 2020-0 Yes [id number] Use as [facility] DELICA PLUS 7-27 directed ity of L[facility]ET 30 00:00: for twice [place] as gauge Misc 00 a day Medical glucose Branch monitoring for ICD E11.9 ONETOUCH 2020-0 Yes [id number] Use as [facility] DELICA PLUS 7-27 directed ity of [facility] 30 00:00: for twice [place] as gauge Misc 00 a day Medical glucose Branch monitoring for ICD E11.9 ONETOUCH 2020-0 Yes [id number] Use as [facility] DELICA PLUS 7-27 directed ity of L[facility] 30 00:00: for twice [place] as gauge Misc 00 a day Medical glucose Branch monitoring for ICD E11.9 ONETOUCH 2020-0 Yes [id number] Use as [facility] DELICA PLUS 7-27 directed ity of L[facility] 30 00:00: for twice [place] as gauge Misc 00 a day Medical glucose Branch monitoring for ICD E11.9 ONETOUCH 2020-0 Yes [id number] Use as [facility] DELICA PLUS 7-27 directed ity of L[facility] 30 00:00: for twice [place] as gauge Misc 00 a day Medical glucose Branch monitoring for ICD E11.9 ONETOUCH 2020-0 Yes [id number] Use as [facility] DELICA PLUS 7-27 directed ity of L[facility] 30 00:00: for twice [place] as gauge Misc 00 a day Medical glucose Branch monitoring for ICD E11.9 ONETOUCH 2020-0 Yes [id number] Use as [facility] DELICA PLUS 7-27 directed ity of L[facility]ET 30 00:00: for twice [place] as gauge Misc 00 a day Medical glucose Branch monitoring for ICD E11.9 ONETOUCH 2020-0 Yes [id number] Use as [facility] DELICA PLUS 7-27 directed ity of L[facility]ET 30 00:00: for twice [place] as gauge Misc 00 a day Medical glucose Branch monitoring for ICD E11.9 ONETOUCH 2020-0 Yes [id number] Use as [facility] DELICA PLUS 7-27 directed ity of L[facility] 30 00:00: for twice [place] as gauge Misc 00 a day Medical glucose Branch monitoring for ICD E11.9 ONETOUCH 2020-0 Yes [id number] Use as [facility] DELICA PLUS 7-27 directed ity of L[facility]ET 30 00:00: for twice [place] as gauge Misc 00 a day Medical glucose Branch monitoring for ICD E11.9 ONETOUCH 2020-0 Yes [id number] Use as [facility] DELICA PLUS 7-27 directed ity of L[facility]ET 30 00:00: for twice [place] as gauge Misc 00 a day Medical glucose Branch monitoring for ICD E11.9 ONETOUCH 2020-0 Yes [id number] Use as [facility] DELICA PLUS 7-27 directed ity of L[facility]ET 30 00:00: for twice [place] as gauge Misc 00 a day Medical glucose Branch monitoring for ICD E11.9 ONETOUCH 2020-0 Yes [id number] Use as [facility] DELICA PLUS 7-27 directed ity of LANCET 30 00:00: for twice [place] as gauge Misc 00 a day Medical glucose Branch monitoring for ICD E11.9 ONETOUCH 0 Yes [id number] Use as [facility] DELICA PLUS 7-27 directed ity of LANCET 30 00:00: for twice [place] as gauge Misc 00 a day Medical glucose Branch monitoring for ICD E11.9 ONETOUCH 2020-0 Yes [id number] Use as [facility] DELICA PLUS 7-27 directed ity of LANCET 30 00:00: for twice [place] as gauge Misc 00 a day Medical glucose Branch monitoring for ICD E11.9 ONETOUCH 2020-0 Yes [id number] Use as [facility] DELICA PLUS 7-27 directed ity of LANCET 30 00:00: for twice [place] as gauge Misc 00 a day Medical glucose Branch monitoring for ICD E11.9 ONETOUCH 2020-0 Yes [id number] Use as [facility] DELICA PLUS 7-27 directed ity of L[facility]ET 30 00:00: for twice [place] as gauge Misc 00 a day Medical glucose Branch monitoring for ICD E11.9 ONETOUCH 2020-0 Yes [id number] Use as [facility] DELICA PLUS 7-27 directed ity of L[facility]ET 30 00:00: for twice [place] as gauge Misc 00 a day Medical glucose Branch monitoring for ICD E11.9 ONETOUCH 2020-0 Yes [id number] Use as [facility] DELICA PLUS 7-27 directed ity of LANCET 30 00:00: for twice [place] as gauge Misc 00 a day Medical glucose Branch monitoring for ICD E11.9 ONETOUCH 2020-0 Yes [id number] Use as [facility] DELICA PLUS 7-27 directed ity of LANCET 30 00:00: for twice [place] as gauge Misc 00 a day Medical glucose Branch monitoring for ICD E11.9 ONETOUCH 2020-0 Yes [id number] Use as [facility] DELICA PLUS 7-27 directed ity of LANCET 30 00:00: for twice [place] as gauge Misc 00 a day Medical glucose Branch monitoring for ICD E11.9 ONETOUCH 2020-0 Yes [id number] Use as [facility] DELICA PLUS 7-27 directed ity of LANCET 30 00:00: for twice [place] as gauge Misc 00 a day Medical glucose Branch monitoring for ICD E11.9 ONETOUCH 2020-0 Yes [id number] Use as [facility] DELICA PLUS 7-27 directed ity of LANCET 30 00:00: for twice [place] as gauge Misc 00 a day Medical glucose Branch monitoring for ICD E11.9 ONETOUCH 0 Yes [id number] Use as [facility] DELICA PLUS 7-27 directed ity of LANCET 30 00:00: for twice [facility] as gauge Misc 00 a day Medical glucose Branch monitoring for ICD E11.9 diclofenac 2020-0 Yes [id number] 75mg Take 1 [facility] 75 mg EC 9- [id number] tablet by [facility]y of tablet 00:00: mouth 2 (two) Medical times Branch daily with meals. diclofenac 2020-0 Yes [id number] 75mg Take 1 [facility] 75 mg EC 9- [id number] tablet by ity of tablet 00:00: mouth 2 [place] (two) Medical times Branch daily with meals. diclofenac 2020-0 Yes [id number] 75mg Take 1 [facility] 75 mg EC 9- [id number] tablet by ity of tablet 00:00: mouth 2 [place] (two) Medical times Branch daily with meals. diclofenac 2020-0 Yes [id number] 75mg Take 1 [facility] 75 mg EC 9- [id number] tablet by ity of tablet 00:00: mouth 2 [place] (two) Medical times Branch daily with meals. diclofenac 2020-0 Yes [id number] 75mg Take 1 [facility] 75 mg EC 9-02 [id number] tablet by ity of tablet 00:00: mouth 2 [place] (two) Medical times Branch daily with meals. diclofenac 2020-0 Yes [id number] 75mg Take 1 [facility] 75 mg EC 9- [id number] tablet by ity of tablet 00:00: mouth 2 [place] (two) Medical times Branch daily with meals. diclofenac 2020-0 Yes [id number] 75mg Take 1 [facility] 75 mg EC 9-02 [id number] tablet by ity of tablet 00:00: mouth 2 [place] (two) Medical times Branch daily with meals. diclofenac 2020-0 Yes [id number] 75mg Take 1 [facility] 75 mg EC 9-02 [id number] tablet by ity of tablet 00:00: mouth 2 [place] (two) Medical times Branch daily with meals. diclofenac 2020-0 Yes [id number] 75mg Take 1 [facility] 75 mg EC 9-02 [id number] tablet by ity of tablet 00:00: mouth [place] (two) Medical times Branch daily with meals. diclofenac 2020-0 Yes [id number] 75mg Take 1 [facility] 75 mg EC 9-02 [id number] tablet by ity of tablet 00:00: mouth [place] (two) Medical times Branch daily with meals. diclofenac 2020-0 Yes [id number] 75mg Take 1 [facility] 75 mg EC 9-02 [id number] tablet by ity of tablet 00:00: mouth [place] (two) Medical times Branch daily with meals. diclofenac 2020-0 Yes [id number] 75mg Take 1 [facility] 75 mg EC 9-02 [id number] tablet by ity of tablet 00:00: mouth [place] (two) Medical times Branch daily with meals. diclofenac 2020-0 Yes [id number] 75mg Take 1 [facility] 75 mg EC 9-02 [id number] tablet by ity of tablet 00:00: mouth [place] (two) Medical times Branch daily with meals. diclofenac 2020-0 Yes [id number] 75mg Take 1 [facility] 75 mg EC 9-02 [id number] tablet by ity of tablet 00:00: mouth [place] (two) Medical times Branch daily with meals. diclofenac 2020-0 Yes [id number] 75mg Take 1 [facility] 75 mg EC 9-02 [id number] tablet by ity of tablet 00:00: mouth 2 [place] (two) Medical times Branch daily with meals. diclofenac 2020-0 Yes [id number] 75mg Take 1 [facility] 75 mg EC 9-02 [id number] tablet by ity of tablet 00:00: mouth 2 [place] (two) Medical times Branch daily with meals. diclofenac 2020-0 Yes [id number] 75mg Take 1 [facility] 75 mg EC 9-02 [id number] tablet by ity of tablet 00:00: mouth (two) Medical times Branch daily with meals. diclofenac 2020-0 Yes [id number] 75mg Take 1 [facility] 75 mg EC 9-02 [id number] tablet by ity of tablet 00:00: mouth (two) Medical times Branch daily with meals. diclofenac 2020-0 Yes [id number] 75mg Take 1 [facility] 75 mg EC 9-02 [id number] tablet by ity of tablet 00:00: mouth (two) Medical times Branch daily with meals. diclofenac 2020-0 Yes [id number] 75mg Take 1 [facility] 75 mg EC 9-02 [id number] tablet by ity of tablet 00:00: mouth (two) Medical times Branch daily with meals. diclofenac 2020-0 Yes [id number] 75mg Take 1 [facility] 75 mg EC 9-02 [id number] tablet by [facility] of tablet 00:00: mouth (two) Medical times Branch daily with meals. diclofenac 2020-0 Yes [id number] 75mg Take 1 [facility] 75 mg EC 9-02 [id number] tablet by ity of tablet 00:00: mouth (two) Medical times Branch daily with meals. diclofenac 2020-0 Yes [id number] 75mg Take 1 [facility] 75 mg EC 9-02 [id number] tablet by ity of tablet 00:00: mouth (two) Medical times Branch daily with meals. diclofenac 2020-0 Yes [id number] 75mg Take 1 [facility] 75 mg EC 9-02 [id number] tablet by ity of tablet 00:00: mouth (two) Medical times Branch daily with meals. diclofenac 2020-0 Yes [id number] 75mg Take 1 [facility] 75 mg EC 9-02 [id number] tablet by ity of tablet 00:00: mouth (two) Medical times Branch daily with meals. diclofenac 2020-0 Yes [id number] 75mg Take 1 [facility] 75 mg EC 9-02 [id number] tablet by [facility]y of tablet 00:00: mouth 2 (two) Medical times Branch daily with meals. diclofenac 2020-0 Yes [id number] 75mg Take 1 [facility] 75 mg EC 9-02 [id number] tablet by [facility] of tablet 00:00: mouth 2 (two) Medical times Branch daily with meals. diclofenac 2020-0 Yes [id number] 75mg Take 1 [facility] 75 mg EC 9-02 [id number] tablet by ity of tablet 00:00: mouth (two) Medical times Branch daily with meals. diclofenac 2020-0 Yes [id number] 75mg Take 1 [facility] 75 mg EC 9-02 [id number] tablet by ity of tablet 00:00: mouth (two) Medical times Branch daily with meals. diclofenac 2020-0 Yes [id number] 75mg Take 1 [facility] 75 mg EC 9-02 [id number] tablet by [facility]y of tablet 00:00: mouth (two) Medical times Branch daily with meals. diclofenac 2020-0 Yes [id number] 75mg Take 1 [facility] 75 mg EC 9-02 [id number] tablet by ity of tablet 00:00: mouth (two) Medical times Branch daily with meals. diclofenac 2020-0 Yes [id number] 75mg Take 1 [facility] 75 mg EC 9-02 [id number] tablet by [facility] of tablet 00:00: mouth (two) Medical times Branch daily with meals. diclofenac 2020-0 Yes [id number] 75mg Take 1 [facility] 75 mg EC 9-02 [id number] tablet by [facility] of tablet 00:00: mouth (two) Medical times Branch daily with meals. diclofenac 2020-0 Yes [id number] 75mg Take 1 [facility] 75 mg EC 9-02 [id number] tablet by [facility]y of tablet 00:00: mouth (two) Medical times Branch daily with meals. diclofenac 2020-0 Yes [id number] 75mg Take 1 [facility] 75 mg EC 9-02 [id number] tablet by ity of tablet 00:00: mouth (two) Medical times Branch daily with meals. diclofenac 2020-0 Yes [id number] 75mg Take 1 [facility] 75 mg EC 9-02 [id number] tablet by [facility] of tablet 00:00: mouth (two) Medical times Branch daily with meals. diclofenac 2020-0 Yes [id number] 75mg Take 1 [facility] 75 mg EC 9-02 [id number] tablet by [facility] of tablet 00:00: mouth 2 (two) Medical times Branch daily with meals. diclofenac 2020-0 Yes [id number] 75mg Take 1 [facility] 75 mg EC 9-02 [id number] tablet by it[facility] of tablet 00:00: mouth (two) Medical times Branch daily with meals. diclofenac 2020-0 Yes [id number] 75mg Take 1 [facility] 75 mg EC 9-02 [id number] tablet by [facility] of tablet 00:00: mouth (two) Medical times Branch daily with meals. diclofenac 2020-0 Yes [id number] 75mg Take 1 [facility] 75 mg EC 9-02 [id number] tablet by [facility] of tablet 00:00: mouth (two) Medical times Branch daily with meals. diclofenac 2020-0 Yes [id number] 75mg Take 1 [facility] 75 mg EC 9-02 [id number] tablet by [facility]y of tablet 00:00: mouth (two) Medical times Branch daily with meals. diclofenac 2020-0 Yes [id number] 75mg Take 1 [facility] 75 mg EC 9-02 [id number] tablet by [facility] of tablet 00:00: mouth (two) Medical times Branch daily with meals. diclofenac 2020-0 Yes [id number] 75mg Take 1 [facility] 75 mg EC 9-02 [id number] tablet by [facility] of tablet 00:00: mouth (two) Medical times Branch daily with meals. diclofenac 2020-0 Yes [id number] 75mg Take 1 [facility] 75 mg EC 9-02 [id number] tablet by [facility] of tablet 00:00: mouth [place] (two) Medical times Branch daily with meals. diclofenac 2020-0 Yes [id number] 75mg Take 1 [facility] 75 mg EC 9-02 [id number] tablet by [facility]y of tablet 00:00: mouth (two) Medical times Branch daily with meals. diclofenac 2020-0 Yes [id number] 75mg Take 1 [facility] 75 mg EC 9-02 [id number] tablet by [facility] of tablet 00:00: mouth (two) Medical times Branch daily with meals. diclofenac 2020-0 Yes [id number] 75mg Take 1 [facility] 75 mg EC 9-02 [id number] tablet by [facility] of tablet 00:00: mouth [place] (two) Medical times Branch daily with meals. diclofenac 2020-0 Yes [id number] 75mg Take 1 [facility] 75 mg EC 9-02 [id number] tablet by [facility] of tablet 00:00: mouth 2 (two) Medical times Branch daily with meals. diclofenac 2020-0 Yes [id number] 75mg Take 1 [facility] 75 mg EC 9-02 [id number] tablet by [facility] of tablet 00:00: mouth 2 (two) Medical times Branch daily with meals. diclofenac 2020-0 Yes [id number] 75mg Take 1 [facility] 75 mg EC 9-02 [id number] tablet by [facility] of tablet 00:00: mouth 2 (two) Medical times Branch daily with meals. diclofenac 2020-0 Yes [id number] 75mg Take 1 [facility] 75 mg EC 9-02 [id number] tablet by [facility] of tablet 00:00: mouth 2 (two) Medical times Branch daily with meals. diclofenac 2020-0 Yes [id number] 75mg Take 1 [facility] 75 mg EC 9-02 [id number] tablet by [facility] of tablet 00:00: mouth 2 (two) Medical times Branch daily with meals. diclofenac 2020-0 Yes [id number] 75mg Take 1 [facility] 75 mg EC 9-02 [id number] tablet by [facility] of tablet 00:00: mouth [place] (two) Medical times Branch daily with meals. diclofenac 2020-0 Yes [id number] 75mg Take 1 [facility] 75 mg EC 9-02 [id number] tablet by [facility] of tablet 00:00: mouth [place] (two) Medical times Branch daily with meals. diclofenac 2020-0 Yes [id number] 75mg Take 1 [facility] 75 mg EC 9-02 [id number] tablet by [facility] of tablet 00:00: mouth [place] (two) Medical times Branch daily with meals. diclofenac 2020-0 Yes [id number] 75mg Take 1 [facility] 75 mg EC 9-02 [id number] tablet by [facility] of tablet 00:00: mouth [place] (two) Medical times Branch daily with meals. diclofenac 2020-0 Yes [id number] 75mg Take 1 [facility] 75 mg EC 9-02 [id number] tablet by [facility] of tablet 00:00: mouth [place] (two) Medical times Branch daily with meals. diclofenac 2020-0 Yes [id number] 75mg Take 1 [facility] 75 mg EC 9-02 [id number] tablet by [facility] of tablet 00:00: mouth 2 [place] (two) Medical times Branch daily with meals. diclofenac 2020-0 Yes [id number] 75mg Take 1 [facility] 75 mg EC 9-02 [id number] tablet by [facility] of tablet 00:00: mouth 2 [place] (two) Medical times Branch daily with meals. diclofenac 2020-0 Yes [id number] 75mg Take 1 [facility] 75 mg EC 9-02 [id number] tablet by [facility] of tablet 00:00: mouth 2 [place] (two) Medical times Branch daily with meals. diclofenac 2020-0 Yes [id number] 75mg Take 1 [facility] 75 mg EC 9-02 [id number] tablet by [facility] of tablet 00:00: mouth [place] (two) Medical times Branch daily with meals. diclofenac 2020-0 Yes [id number] 75mg Take 1 [facility] 75 mg EC 9-02 [id number] tablet by [facility] of tablet 00:00: mouth [place] (two) Medical times Branch daily with meals. diclofenac 2020-0 Yes [id number] 75mg Take 1 [facility] 75 mg EC 9-02 [id number] tablet by [facility] of tablet 00:00: mouth [place] (two) Medical times Branch daily with meals. diclofenac 2020-0 Yes [id number] 75mg Take 1 [facility] 75 mg EC 9-02 [id number] tablet by [facility] of tablet 00:00: mouth [place] (two) Medical times Branch daily with meals. diclofenac 2020-0 Yes [id number] 75mg Take 1 [facility] 75 mg EC 9-02 [id number] tablet by [facility] of tablet 00:00: mouth [address] [place] [address] (two) Medical times Branch daily with meals. diclofenac 2020-0 Yes [id number] 75mg Take 1 [facility] 75 mg EC 9-02 [id number] tablet by ity of tablet 00:00: mouth [address] [place] [address] (two) Medical times Branch daily with meals. diclofenac 2020-0 Yes [id number] 75mg Take 1 [facility] 75 mg EC 9-02 [id number] tablet by [facility] of tablet 00:00: mouth [place] (two) Medical times Branch daily with meals. diclofenac 2020-0 Yes [id number] 75mg Take 1 [facility] 75 mg EC 9-02 [id number] tablet by [facility]y of tablet 00:00: mouth [address] [place] [address] (two) Medical times Branch daily with meals. diclofenac 2020-0 Yes [id number] 75mg Take 1 [facility] 75 mg EC 9-02 [id number] tablet by ity of tablet 00:00: mouth 2 [place] (two) [facility] times [facility] daily with meals. diclofenac 2020-0 Yes [id number] 75mg Take 1 [facility] 75 mg EC 9-02 [id number] tablet by ity of tablet 00:00: mouth 2 [place] (two) [facility] times [facility] daily with meals. diclofenac 2020-0 Yes [id number] 75mg Take 1 [facility] 75 mg EC 9-02 [id number] tablet by ity of tablet 00:00: mouth (two) [facility] times [facility] daily with meals. diclofenac 2020-0 Yes [id number] 75mg Take 1 [facility] 75 mg EC 9-02 [id number] tablet by ity of tablet 00:00: mouth (two) [facility] times [facility] daily with meals. diclofenac 2020-0 Yes [id number] 75mg Take 1 [facility] 75 mg EC 9-02 [id number] tablet by ity of tablet 00:00: mouth (two) [facility] times [facility] daily with meals. diclofenac 2020-0 Yes [id number] 75mg Take 1 [facility] 75 mg EC 9-02 [id number] tablet by ity of tablet 00:00: mouth (two) [facility] times [facility] daily with meals. diclofenac 2020-0 Yes [id number] 75mg Take 1 [facility] 75 mg EC 9-02 [id number] tablet by ity of tablet 00:00: mouth (two) [facility] times [facility] daily with meals. diclofenac 2020-0 Yes [id number] 75mg Take 1 [facility] 75 mg EC 9-02 [id number] tablet by ity of tablet 00:00: mouth (two) [facility] times [facility] daily with meals. diclofenac 2020-0 Yes [id number] 75mg Take 1 [facility] 75 mg EC 9-02 [id number] tablet by ity of tablet 00:00: mouth (two) Medical times [facility] daily with meals. diclofenac 2020-0 Yes [id number] 75mg Take 1 [facility] 75 mg EC 9-02 [id number] tablet by ity of tablet 00:00: mouth (two) [facility] times [facility] daily with meals. diclofenac 2020-0 Yes [id number] 75mg Take 1 [facility] 75 mg EC 9-02 [id number] tablet by ity of tablet 00:00: mouth (two) [facility] times [facility] daily with meals. diclofenac 2020-0 Yes [id number] 75mg Take 1 [facility] 75 mg EC 9-02 [id number] tablet by ity of tablet 00:00: mouth (two) [facility] times [facility] daily with meals. diclofenac 2020-0 Yes [id number] 75mg Take 1 [facility] 75 mg EC 9-02 [id number] tablet by ity of tablet 00:00: mouth (two) Medical times [facility] daily with meals. diclofenac 2020-0 Yes [id number] 75mg Take 1 [facility] 75 mg EC 9-02 [id number] tablet by ity of tablet 00:00: mouth 2 (two) Medical times [facility] daily with meals. diclofenac 2020-0 Yes [id number] 75mg Take 1 [facility] 75 mg EC 9- [id number] tablet by ity of tablet 00:00: mouth 2 (two) Medical times [facility] daily with meals. diclofenac 2020-0 Yes [id number] 75mg Take 1 [facility] 75 mg EC - [id number] tablet by ity of tablet 00:00: mouth 2 (two) Medical times [facility] daily with meals. diclofenac 2020-0 Yes [id number] 75mg Take 1 [facility] 75 mg EC - [id number] tablet by ity of tablet 00:00: mouth 2 (two) Medical times [facility] daily with meals. Miscellaneo 2020-0 Yes [id number] J40: Un [facility] 11-22 [place] ity of Supply Kit 00:00: - [place] [facility] 1 [facility] Respironic s (okay for alternativ e brand) for nebulizer treatment Miscellaneo 2020-0 Yes [id number] J40: Un [facility] 11-22 [place] ity of Supply Kit 00:00: - [place]ense [place] [facility] # 1 [facility] Respironic s (okay for alternativ e brand) for nebulizer treatment Miscellaneo 2020-0 Yes [id number] J40: Un [facility] 11-22 [place] ity of Supply Kit 00:00: - Dis[place]ense [place] [facility] # 1 [facility] Respironic s (okay for alternativ e brand) for nebulizer treatment Miscellaneo 2020-0 Yes [id number] J40: Un [facility] 11-22 [place] ity of Supply Kit 00:00: - Dispense [place] [facility] # 1 [facility] Respironic s (okay for alternativ e brand) for nebulizer treatment Miscellaneo 2020-0 Yes [id number] J40: Un [facility] 11-22 [place] ity of Supply Kit 00:00: - Dispense [place] 00 # 1 [facility] Respironic s (okay for alternativ e brand) for nebulizer treatment Miscellaneo 2020-0 Yes [id number] J40: Un [facility] 11-22 [place] ity of Supply Kit 00:00: - Dispense [place] 00 # 1 [facility] Respironic s (okay for alternativ e brand) for nebulizer treatment Miscellaneo 2020-0 Yes [id number] J40: Un [facility] 11-22 [place] ity of Supply Kit 00:00: - Dispense [place] 00 # 1 [facility] Respironic s (okay for alternativ e brand) for nebulizer treatment Miscellaneo 2020-0 Yes [id number] J40: Un [facility] 11-22 [place] ity of Supply Kit 00:00: - Dispense [place] 00 # 1 [facility] Respironic s (okay for alternativ e brand) for nebulizer treatment Miscellaneo 2020-0 Yes [id number] J40: Un [facility] 11-22 [place] ity of Supply Kit 00:00: - Dispense [place] 00 # 1 [facility] Respironic s (okay for alternativ e brand) for nebulizer treatment Miscellaneo 2020-0 Yes [id number] J40: Un [facility] 11-22 [place] ity of Supply Kit 00:00: - Dispense [place] 00 # 1 [facility] Respironic s (okay for alternativ e brand) for nebulizer treatment Miscellaneo 2020-0 Yes [id number] J40: Un [facility] 11-22 [place] ity of Supply Kit 00:00: - Dispense [place] 00 # 1 [facility] Respironic s (okay for alternativ e brand) for nebulizer treatment Miscellaneo 2020-0 Yes [id number] J40: [facility] 11-22 [place] ity of Supply Kit 00:00: - Dis[place]ense [place] 00 # 1 [facility] Respironic s (okay for alternativ e brand) for nebulizer treatment Miscellaneo 2020-0 Yes [id number] J40: [facility] [place] ity of Supply Kit 00:00: - [place]ense [place] 00 # 1 [facility] Respironic s (okay for alternativ e brand) for nebulizer treatment Miscellaneo 2020-0 Yes [id number] J40: [facility] 11-22 [place] ity of Supply Kit 00:00: - Dis[place]ense [place] 00 # 1 [facility] Respironic s (okay for alternativ e brand) for nebulizer treatment Miscellaneo 2020-0 Yes [id number] J40: [facility] 11-22 [place] ity of Supply Kit 00:00: - [place]ense [place] 00 # 1 [facility] Respironic s (okay for alternativ e brand) for nebulizer treatment Miscellaneo 2020-0 Yes [id number] J40: [facility] 11-22 [place] ity of Supply Kit 00:00: - [place]ense [place] 00 # 1 [facility] Respironic s (okay for alternativ e brand) for nebulizer treatment Miscellaneo 2020-0 Yes [id number] J40: [facility] 11-22 [place] ity of Supply Kit 00:00: - [place] 00 # 1 [facility] Respironic s (okay for alternativ e brand) for nebulizer treatment Miscellaneo 2020-0 Yes [id number] J40: [facility] 11-22 [place] ity of Supply Kit 00:00: - [place] 00 # 1 [facility] Respironic s (okay for alternativ e brand) for nebulizer treatment Miscellaneo 2020-0 Yes [id number] J40: [facility] 11-22 [place] ity of Supply Kit 00:00: - [place] 00 # 1 [facility] Respironic s (okay for alternativ e brand) for nebulizer treatment Miscellaneo 2020-0 Yes [id number] J40: [facility] 11-22 [place] ity of Supply Kit 00:00: - [place] 00 # 1 [facility] Respironic s (okay for alternativ e brand) for nebulizer treatment Miscellaneo 2020-0 Yes [id number] J40: [facility] 11-22 [place] ity of Supply Kit 00:00: - [place] 00 # 1 [facility] Respironic s (okay for alternativ e brand) for nebulizer treatment Miscellaneo 2020-0 Yes [id number] J40: [facility] 11-22 [place] ity of Supply Kit 00:00: - [place] 00 # 1 [facility] Respironic s (okay for alternativ e brand) for nebulizer treatment Miscellaneo 2020-0 Yes [id number] J40: [facility] 11-22 [place] ity of Supply Kit 00:00: - [place]ense [place] 00 # 1 [facility] Respironic s (okay for alternativ e brand) for nebulizer treatment Miscellaneo 2020-0 Yes [id number] J40: [facility] 11-22 [place] ity of Supply Kit 00:00: - [place] 00 # 1 [facility] Respironic s (okay for alternativ e brand) for nebulizer treatment Miscellaneo 2020-0 Yes [id number] J40: [facility] 11-22 [place] ity of Supply Kit 00:00: - Dis[place]ense [place] 00 # 1 [facility] Respironic s (okay for alternativ e brand) for nebulizer treatment Miscellaneo 2020-0 Yes [id number] J40: [facility] 11-22 [place] ity of Supply Kit 00:00: - Dis[place]ense [place] 00 # 1 [facility] Respironic s (okay for alternativ e brand) for nebulizer treatment Miscellaneo 2020-0 Yes [id number] J40: Un [facility] 11-22 [place] ity of Supply Kit 00:00: - Dispense [place] 00 # 1 [facility] Respironic s (okay for alternativ e brand) for nebulizer treatment Miscellaneo 2020-0 Yes [id number] J40: [facility] 11-22 [place] ity of Supply Kit 00:00: - Dispense [place] 00 # 1 [facility] Respironic s (okay for alternativ e brand) for nebulizer treatment Miscellaneo 2020-0 Yes [id number] J40: [facility] 11-22 [place] ity of Supply Kit 00:00: - Dispense [place] 00 # 1 [facility] Respironic s (okay for alternativ e brand) for nebulizer treatment Miscellaneo 2020-0 Yes [id number] J40: [facility] 11-22 [place] ity of Supply Kit 00:00: - Dispense [place] 00 # 1 [facility] Respironic s (okay for alternativ e brand) for nebulizer treatment Miscellaneo 2020-0 Yes [id number] J40: [facility] 11-22 [place] ity of Supply Kit 00:00: - Dispense [place] 00 # 1 [facility] Respironic s (okay for alternativ e brand) for nebulizer treatment Miscellaneo 2020-0 Yes [id number] J40: [facility] 11-22 [place] ity of Supply Kit 00:00: - Dispense [place] 00 # 1 [facility] Respironic s (okay for alternativ e brand) for nebulizer treatment Miscellaneo 2020-0 Yes [id number] J40: [facility] 11-22 [place] ity of Supply Kit 00:00: - Dispense [place] 00 # 1 [facility] Respironic s (okay for alternativ e brand) for nebulizer treatment Miscellaneo 2020-0 Yes [id number] J40: [facility] 11-22 [place] ity of Supply Kit 00:00: - Dispense [place] 00 # 1 [facility] Respironic s (okay for alternativ e brand) for nebulizer treatment Miscellaneo 2020-0 Yes [id number] J40: [facility] 11-22 [place] ity of Supply Kit 00:00: - Dispense [place] 00 # 1 [facility] Respironic s (okay for alternativ e brand) for nebulizer treatment Miscellaneo 2020-0 Yes [id number] J40: [facility] 11-22 [place] ity of Supply Kit 00:00: - Dispense [place] 00 # 1 [facility] Respironic s (okay for alternativ e brand) for nebulizer treatment Miscellaneo 2020-0 Yes [id number] J40: [facility] 11-22 [place] ity of Supply Kit 00:00: - Dispense [place] 00 # 1 [facility] Respironic s (okay for alternativ e brand) for nebulizer treatment Miscellaneo 2020-0 Yes [id number] J40: [facility] 11-22 [place] ity of Supply Kit 00:00: - Dispense [place] 00 # 1 [facility] Respironic s (okay for alternativ e brand) for nebulizer treatment Miscellaneo 2020-0 Yes [id number] J40: Un [facility] 11-22 [place] ity of Supply Kit 00:00: - Dispense [place] 00 # 1 [facility] Respironic s (okay for alternativ e brand) for nebulizer treatment Miscellaneo 2020-0 Yes [id number] J40: [facility] 11-22 [place] ity of Supply Kit 00:00: - Dispense [place] 00 # 1 [facility] Respironic s (okay for alternativ e brand) for nebulizer treatment Miscellaneo 2020-0 Yes [id number] J40: [facility] 11-22 [place] ity of Supply Kit 00:00: - Dispense [place] 00 # 1 [facility] Respironic s (okay for alternativ e brand) for nebulizer treatment Miscellaneo 2020-0 Yes [id number] J40: [facility] 11-22 [place] ity of Supply Kit 00:00: - Dispense [place] 00 # 1 [facility] Respironic s (okay for alternativ e brand) for nebulizer treatment Miscellaneo 2020-0 Yes [id number] J40: [facility] 11-22 [place] ity of Supply Kit 00:00: - Dispense [place] 00 # 1 [facility] Respironic s (okay for alternativ e brand) for nebulizer treatment Miscellaneo 2020-0 Yes [id number] J40: Un [facility] 11-22 [place] ity of Supply Kit 00:00: - Dispense [place] 00 # 1 [facility] Respironic s (okay for alternativ e brand) for nebulizer treatment Miscellaneo 2020-0 Yes [id number] J40: Un [facility] 11-22 [place] ity of Supply Kit 00:00: - Dispense [place] 00 # 1 [facility] Respironic s (okay for alternativ e brand) for nebulizer treatment Miscellaneo 2020-0 Yes [id number] J40: Un [facility] 11-22 [place] ity of Supply Kit 00:00: - Dispense [place] 00 # 1 [facility] Respironic s (okay for alternativ e brand) for nebulizer treatment Miscellaneo 2020-0 Yes [id number] J40: Un [facility] 11-22 [place] ity of Supply Kit 00:00: - Dispense [place] 00 # 1 [facility] Respironic s (okay for alternativ e brand) for nebulizer treatment Miscellaneo 2020-0 Yes [id number] J40: [facility] 11-22 [place] ity of Supply Kit 00:00: - Dispense [place] 00 # 1 [facility] Respironic s (okay for alternativ e brand) for nebulizer treatment Miscellaneo 2020-0 Yes [id number] J40: [facility] 11-22 [place] ity of Supply Kit 00:00: - Dispense [place] 00 # 1 [facility] Respironic s (okay for alternativ e brand) for nebulizer treatment Miscellaneo 2020-0 Yes [id number] J40: Un [facility] 11-22 [place] ity of Supply Kit 00:00: - Dispense [place] 00 # 1 [facility] Respironic s (okay for alternativ e brand) for nebulizer treatment Miscellaneo 2020-0 Yes [id number] J40: Un [facility] 11-22 [place] ity of Supply Kit 00:00: - Dispense [place] 00 # 1 [facility] Respironic s (okay for alternativ e brand) for nebulizer treatment Miscellaneo 2020-0 Yes [id number] J40: Un [facility] 11-22 [place] ity of Supply Kit 00:00: - Dispense [place] 00 # 1 [facility] Respironic s (okay for alternativ e brand) for nebulizer treatment Miscellaneo 2020-0 Yes [id number] J40: [facility] 11-22 [place] ity of Supply Kit 00:00: - Dispense [place] 00 # 1 [facility] Respironic s (okay for alternativ e brand) for nebulizer treatment Miscellaneo 2020-0 Yes [id number] J40: [facility] 11-22 [place] ity of Supply Kit 00:00: - Dispense [place] 00 # 1 [facility] Respironic s (okay for alternativ e brand) for nebulizer treatment Miscellaneo 2020-0 Yes [id number] J40: Un [facility] 11-22 [place] ity of Supply Kit 00:00: - Dispense [place] 00 # 1 [facility] Respironic s (okay for alternativ e brand) for nebulizer treatment Miscellaneo 2020-0 Yes [id number] J40: Un [facility] 11-22 [place] ity of Supply Kit 00:00: - Dispense [place] 00 # 1 [facility] Respironic s (okay for alternativ e brand) for nebulizer treatment Miscellaneo 2020-0 Yes [id number] J40: Un [facility] 11-22 [place] ity of Supply Kit 00:00: - Dispense [place] 00 # 1 [facility] Respironic s (okay for alternativ e brand) for nebulizer treatment Miscellaneo 2020-0 Yes [id number] J40: Un [facility] 11-22 [place] ity of Supply Kit 00:00: - Dispense [place] 00 # 1 [facility] Respironic s (okay for alternativ e brand) for nebulizer treatment Miscellaneo 2020-0 Yes [id number] J40: Un [facility] 11-22 [place] ity of Supply Kit 00:00: - Dispense [place] 00 # 1 [facility] Respironic s (okay for alternativ e brand) for nebulizer treatment Miscellaneo 2020-0 Yes [id number] J40: Un [facility] 11-22 [place] ity of Supply Kit 00:00: - Dispense [place] 00 # 1 [facility] Respironic s (okay for alternativ e brand) for nebulizer treatment Miscellaneo 2020-0 Yes [id number] J40: Un [facility] 11-22 [place] ity of Supply Kit 00:00: - Dispense [place] 00 # 1 [facility] Respironic s (okay for alternativ e brand) for nebulizer treatment Miscellaneo 2020-0 Yes [id number] J40: Un [facility] 11-22 [place] ity of Supply Kit 00:00: - Dispense [place] 00 # 1 [facility] Respironic s (okay for alternativ e brand) for nebulizer treatment Miscellaneo 2020-0 Yes [id number] J40: Un [facility] 11-22 [place] ity of Supply Kit 00:00: - Dispense [place] 00 # 1 [facility] Respironic s (okay for alternativ e brand) for nebulizer treatment Miscellaneo 2020-0 Yes [id number] J40: Un [facility] 11-22 [place] ity of Supply Kit 00:00: - Dispense [place] 00 # 1 [facility] Respironic s (okay for alternativ e brand) for nebulizer treatment Miscellaneo 2020-0 Yes [id number] J40: Un [facility] 11-22 [place] ity of Supply Kit 00:00: - Dispense [place] 00 # 1 [facility] Respironic s (okay for alternativ e brand) for nebulizer treatment Miscellaneo 2020-0 Yes [id number] J40: [facility] 11-22 [place] ity of Supply Kit 00:00: - Dispense [place] 00 # 1 [facility] Respironic s (okay for alternativ e brand) for nebulizer treatment Miscellaneo 2020-0 Yes [id number] J40: Un [facility] 11-22 [place] ity of Supply Kit 00:00: - Dispense [place] 00 # 1 [facility] Respironic s (okay for alternativ e brand) for nebulizer treatment Miscellaneo 2020-0 Yes [id number] J40: [facility] 11-22 [place] ity of Supply Kit 00:00: - Dispense [place] 00 # 1 [facility] Respironic s (okay for alternativ e brand) for nebulizer treatment Miscellaneo 2020-0 Yes [id number] J40: [facility] [place] it[facility] of Supply Kit 00:00: - Dispense [place] 00 # 1 [facility] Respironic s (okay for alternativ e brand) for nebulizer treatment Miscellaneo 2020-0 Yes [id number] J40: [facility] [place] ity of Supply Kit 00:00: - Dispense [place] 00 # 1 [facility] Respironic s (okay for alternativ e brand) for nebulizer treatment Miscellaneo 2020-0 Yes [id number] J40: [facility] [place] ity of Supply Kit 00:00: - Dispense [place] 00 # 1 [facility] Respironic s (okay for alternativ e brand) for nebulizer treatment Miscellaneo 2020-0 Yes [id number] J40: [facility] [place] ity of Supply Kit 00:00: - Dispense [place] 00 # 1 [facility] Respironic s (okay for alternativ e brand) for nebulizer treatment Miscellaneo 2020-0 Yes [id number] J40: Un [facility] 11-22 [place] ity of Supply Kit 00:00: - Dispense [place] 00 # 1 [facility] Respironic s (okay for alternativ e brand) for nebulizer treatment Miscellaneo 2020-0 Yes [id number] J40: [facility] 11-22 [place] ity of Supply Kit 00:00: - Dispense [place] 00 # 1 [facility] Respironic s (okay for alternativ e brand) for nebulizer treatment Miscellaneo 2020-0 Yes [id number] J40: [facility] 11-22 [place] ity of Supply Kit 00:00: - Dispense [place] 00 # 1 [facility] Respironic s (okay for alternativ e brand) for nebulizer treatment Miscellaneo 2020-0 Yes [id number] J40: [facility] [place] ity of Supply Kit 00:00: - Dispense [place] 00 # 1 [facility] Respironic s (okay for alternativ e brand) for nebulizer treatment Miscellaneo 2020-0 Yes [id number] J40: [facility] [place] ity of Supply Kit 00:00: - Dispense [place] 00 # 1 [facility] Respironic s (okay for alternativ e brand) for nebulizer treatment Miscellaneo 2020-0 Yes [id number] J40: Un [facility] 11-22 [place] ity of Supply Kit 00:00: - Dispense [place] 00 # 1 [facility] Respironic s (okay for alternativ e brand) for nebulizer treatment Miscellaneo 2020-0 Yes [id number] J40: Un [facility] 11-22 [place] ity of Supply Kit 00:00: - Dispense [place] 00 # 1 [facility] Respironic s (okay for alternativ e brand) for nebulizer treatment Miscellaneo 2020-0 Yes [id number] J40: Un [facility] 11-22 [place] ity of Supply Kit 00:00: - Dispense [place] 00 # 1 [facility] Respironic s (okay for alternativ e brand) for nebulizer treatment Miscellaneo 2020-0 Yes [id number] J40: [facility] 11-22 [place] ity of Supply Kit 00:00: - Dispense [place] 00 # 1 [facility] Respironic s (okay for alternativ e brand) for nebulizer treatment Miscellaneo 2020-0 Yes [id number] J40: Un [facility] 11-22 [place] ity of Supply Kit 00:00: - Dispense [place] 00 # 1 [facility] Respironic s (okay for alternativ e brand) for nebulizer treatment Miscellaneo 2020-0 Yes [id number] J40: [facility] 11-22 [place] ity of Supply Kit 00:00: - Dispense [place] 00 # 1 [facility] Respironic s (okay for alternativ e brand) for nebulizer treatment Miscellaneo 2020-0 Yes [id number] J40: [facility] 11-22 [place] ity of Supply Kit 00:00: - Dispense [place] 00 # 1 [facility] Respironic s (okay for alternativ e brand) for nebulizer treatment Miscellaneo 2020-0 Yes [id number] J40: [facility] 11-22 [place] ity of Supply Kit 00:00: - Dispense [place] 00 # 1 [facility] Respironic s (okay for alternativ e brand) for nebulizer treatment ALCOHOL 2018-0 Yes [facility] PREP PADS 6-14 ity of PadM 00:00: [place] [facility] ALCOHOL 2018-0 Yes [facility] PREP PADS 6-14 ity of PadM 00:00: [place] [facility] ALCOHOL 2018-0 Yes [facility] PREP PADS 6-14 ity of PadM 00:00: [place] [facility] ALCOHOL 2018-0 Yes [facility] PREP PADS 6-14 ity of PadM 00:00: [place] [facility] ALCOHOL 2018-0 Yes [facility] PREP PADS 6-14 ity of PadM 00:00: [place] [facility] ALCOHOL 2018-0 Yes [facility] PREP PADS 6-14 ity of PadM 00:00: [place] [facility] ALCOHOL 2018-0 Yes [facility] PREP PADS 6-14 ity of PadM 00:00: [place] [facility] ALCOHOL 2018-0 Yes [facility] PREP PADS 6-14 ity of PadM 00:00: [place] [facility] ALCOHOL 2018-0 Yes [facility] PREP PADS 6-14 ity of PadM 00:00: [place] [facility] ALCOHOL 2018-0 Yes [facility] PREP PADS 6-14 ity of PadM 00:00: [place] [facility] ALCOHOL 2018-0 Yes [facility] PREP PADS 6-14 ity of PadM 00:00: [place] [facility] ALCOHOL 2018-0 Yes [facility] PREP PADS 6-14 ity of PadM 00:00: [place] [facility] ALCOHOL 2018-0 Yes [facility] PREP PADS 6-14 ity of PadM 00:00: [place] [facility] ALCOHOL 2018-0 Yes [facility] PREP PADS 6-14 ity of PadM 00:00: [place] [facility] ALCOHOL 2018-0 Yes [facility] PREP PADS 6-14 ity of PadM 00:00: [place] [facility] ALCOHOL 2018-0 Yes [facility] PREP PADS 6-14 ity of PadM 00:00: [place] [facility] ALCOHOL 2018-0 Yes [facility] PREP PADS 6-14 ity of PadM 00:00: [place] [facility] ALCOHOL 2018-0 Yes [facility] PREP PADS 6-14 ity of PadM 00:00: [place] [facility] ALCOHOL 2018-0 Yes [facility] PREP PADS 6-14 ity of PadM 00:00: [place] [facility] ALCOHOL 2018-0 Yes [facility] PREP PADS 6-14 ity of PadM 00:00: [place] [facility] ALCOHOL 2018-0 Yes [facility] PREP PADS 6-14 ity of PadM 00:00: [place] [facility] ALCOHOL 2018-0 Yes [facility] PREP PADS 6-14 ity of PadM 00:00: [place] [facility] ALCOHOL 2018-0 Yes [facility] PREP PADS 6-14 ity of PadM 00:00: [place] [facility] ALCOHOL 2018-0 Yes [facility] PREP PADS 6-14 ity of PadM 00:00: [place] [facility] ALCOHOL 2018-0 Yes [facility] PREP PADS 6-14 ity of PadM 00:00: [place] [facility] ALCOHOL 2018-0 Yes [facility] PREP PADS 6-14 ity of PadM 00:00: [place] [facility] ALCOHOL 2018-0 Yes [facility] PREP PADS 6-14 ity of PadM 00:00: [place] [facility] ALCOHOL 2018-0 Yes [facility] PREP PADS 6-14 ity of PadM 00:00: [place] [facility] ALCOHOL 2018-0 Yes Univers PREP PADS 6-14 ity of PadM 00:00: [place] [facility] ALCOHOL 2018-0 Yes Univers PREP PADS 6-14 ity of PadM 00:00: [place] [facility] ALCOHOL 2018-0 Yes Univers PREP PADS 6-14 ity of PadM 00:00: [place] [facility] ALCOHOL 2018-0 Yes Univers PREP PADS 6-14 ity of PadM 00:00: [place] [facility] ALCOHOL 2018-0 Yes Univers PREP PADS 6-14 ity of PadM 00:00: [place] [facility] ALCOHOL 2018-0 Yes Univers PREP PADS 6-14 ity of PadM 00:00: [place] [facility] ALCOHOL 2018-0 Yes Univers PREP PADS 6-14 ity of PadM 00:00: [place] [facility] ALCOHOL 2018-0 Yes Univers PREP PADS 6-14 ity of PadM 00:00: [place] [facility] ALCOHOL 2018-0 Yes Univers PREP PADS 6-14 ity of PadM 00:00: [place] [facility] ALCOHOL 2018-0 Yes Univers PREP PADS 6-14 ity of PadM 00:00: [place] [facility] ALCOHOL 2018-0 Yes Univers PREP PADS 6-14 ity of PadM 00:00: [place] [facility] ALCOHOL 2018-0 Yes Univers PREP PADS 6-14 ity of PadM 00:00: [place] [facility] ALCOHOL 2018-0 Yes Univers PREP PADS 6-14 ity of PadM 00:00: [place] [facility] ALCOHOL 2018-0 Yes Univers PREP PADS 6-14 ity of PadM 00:00: [place] [facility] ALCOHOL 2018-0 Yes Univers PREP PADS 6-14 ity of PadM 00:00: [place] [facility] ALCOHOL 2018-0 Yes Univers PREP PADS 6-14 ity of PadM 00:00: [place] [facility] ALCOHOL 2018-0 Yes Univers PREP PADS 6-14 ity of PadM 00:00: [place] [facility] ALCOHOL 2018-0 Yes Univers PREP PADS 6-14 ity of PadM 00:00: [place] [facility] ALCOHOL 2018-0 Yes Univers PREP PADS 6-14 ity of PadM 00:00: [place] [facility] ALCOHOL 2018-0 Yes Univers PREP PADS 6-14 ity of PadM 00:00: [place] [facility] ALCOHOL 2018-0 Yes Univers PREP PADS 6-14 ity of PadM 00:00: [place] [facility] ALCOHOL 2018-0 Yes Univers PREP PADS 6-14 ity of PadM 00:00: [place] [facility] ALCOHOL 2018-0 Yes Univers PREP PADS 6-14 ity of PadM 00:00: [place] [facility] ALCOHOL 2018-0 Yes Univers PREP PADS 6-14 ity of PadM 00:00: [place] [facility] ALCOHOL 2018-0 Yes Univers PREP PADS 6-14 ity of PadM 00:00: [place] [facility] ALCOHOL 2018-0 Yes Univers PREP PADS 6-14 ity of PadM 00:00: [place] [facility] ALCOHOL 2018-0 Yes Univers PREP PADS 6-14 ity of PadM 00:00: [place] [facility] ALCOHOL 2018-0 Yes Univers PREP PADS 6-14 ity of PadM 00:00: [place] [facility] ALCOHOL 2018-0 Yes Univers PREP PADS 6-14 ity of PadM 00:00: [place] [facility] ALCOHOL 2018-0 Yes Univers PREP PADS 6-14 ity of PadM 00:00: [place] [facility] ALCOHOL 2018-0 Yes Univers PREP PADS 6-14 ity of PadM 00:00: [place] [facility] ALCOHOL 2018-0 Yes Univers PREP PADS 6-14 ity of PadM 00:00: [place] [facility] ALCOHOL 2018-0 Yes Univers PREP PADS 6-14 ity of PadM 00:00: [place] [facility] ALCOHOL 2018-0 Yes Univers PREP PADS 6-14 ity of PadM 00:00: [place] [facility] ALCOHOL 2018-0 Yes Univers PREP PADS 6-14 ity of PadM 00:00: [place] [facility] ALCOHOL 2018-0 Yes Univers PREP PADS 6-14 ity of PadM 00:00: [place] [facility] ALCOHOL 2018-0 Yes Univers PREP PADS 6-14 ity of PadM 00:00: [place] [facility] ALCOHOL 2018-0 Yes Univers PREP PADS 6-14 ity of PadM 00:00: [place] [facility] ALCOHOL 2018-0 Yes Univers PREP PADS 6-14 ity of PadM 00:00: [place] [facility] ALCOHOL 2018-0 Yes Univers PREP PADS 6-14 ity of PadM 00:00: [place] [facility] ALCOHOL 2018-0 Yes Univers PREP PADS 6-14 ity of PadM 00:00: [place] [facility] ALCOHOL 2018-0 Yes Univers PREP PADS 6-14 ity of PadM 00:00: [place] [facility] ALCOHOL 2018-0 Yes Univers PREP PADS 6-14 ity of PadM 00:00: [place] [facility] ALCOHOL 2018-0 Yes Univers PREP PADS 6-14 ity of PadM 00:00: [place] [facility] ALCOHOL 2018-0 Yes Univers PREP PADS 6-14 ity of PadM 00:00: [place] [facility] ALCOHOL 2018-0 Yes Univers PREP PADS 6-14 ity of PadM 00:00: [place] [facility] ALCOHOL 2018-0 Yes Univers PREP PADS 6-14 ity of PadM 00:00: [place] [facility] ALCOHOL 2018-0 Yes Univers PREP PADS 6-14 ity of PadM 00:00: [place] [facility] ALCOHOL 2018-0 Yes Univers PREP PADS 6-14 ity of PadM 00:00: [place] [facility] ALCOHOL 2018-0 Yes Univers PREP PADS 6-14 ity of PadM 00:00: [place] [facility] ALCOHOL 2018-0 Yes Univers PREP PADS 6-14 ity of PadM 00:00: [place] [facility] ALCOHOL 2018-0 Yes Univers PREP PADS 6-14 ity of PadM 00:00: [place] [facility] ALCOHOL 2018-0 Yes Univers PREP PADS 6-14 ity of PadM 00:00: [place] [facility] ALCOHOL 2018-0 Yes Univers PREP PADS 6-14 ity of PadM 00:00: [place] [facility] ALCOHOL 2018-0 Yes Univers PREP PADS 6-14 ity of PadM 00:00: [place] [facility] ALCOHOL 2017-0 Yes Univers PREP PADS 6-14 ity of PadM 00:00: Medical Branch ALCOHOL 2018-0 Yes Univers PREP PADS 6-14 ity of PadM 00:00: [place] [facility] loxapine Yes Univers (LOXITANE) 1-20 [...] mg 00:00: [place] capsule 00 Medical Branch Immunizations Ordered Filled Immunization Date [...] rsity of MODERNA 0.25ML 00:00:00 [place] Medi aslhey BOOSTER VACCINE Branch SARS-COV-2 COVID-19 2021-06-04 Completed [...] y of Vaccine Quad .5 mL 00:00:00 [facility] IM 6+ MO Branch Pneumococcal 2020-06-15 Completed University o f Polysaccharide, 00:00:00 [place] Med ical PPSV23 (PNEUMOVAX) Branch Influenza Virus 2020-06-15 Completed Universit y of Vaccine Quad .5 mL 00:00:00 [place] [facility] IM 6+ MO Branch Pneumococcal 2020-06-15 Completed University o f Polysaccharide, 00:00:00 [place] [facility] ical PPSV23 (PNEUMOVAX) Branch Influenza Virus 2020-06-15 Completed Universit y of Vaccine Quad .5 mL 00:00:00 [facility] IM 6+ MO Branch Pneumococcal 2020-06-15 Completed [...] y of Vaccine Quad .5 mL 00:00:00 [place] [facility] IM 6+ MO Branch Pneumococcal 2020-06-15 Completed University o f Polysaccharide, 00:00:00 [place] [facility] ical PPSV23 (PNEUMOVAX) Branch Influenza Virus 2020-06-15 Completed Universit y of Vaccine Quad .5 mL 00:00:00 [place] [facility] IM 6+ MO Branch Pneumococcal 2020-06-15 Completed University o f Polysaccharide, 00:00:00 [place] [facility] ical PPSV23 (PNEUMOVAX) Branch Influenza Virus 2020-06-15 Completed Universit y of Vaccine Quad .5 mL 00:00:00 [place] [facility] IM 6+ MO Branch Pneumococcal 2020-06-15 Completed University o f Polysaccharide, 00:00:00 [place] [facility] ical PPSV23 (PNEUMOVAX) Branch Influenza Virus 2020-06-15 Completed Universit y of Vaccine Quad .5 mL 00:00:00 [place] [facility] IM 6+ MO Branch Pneumococcal 2020-06-15 [...] y of Vaccine Quad .5 mL 00:00:00 [place] [facility] IM 6+ MO Branch Pneumococcal 2020-06-15 Completed University o f Polysaccharide, 00:00:00 [place] [facility] ical PPSV23 (PNEUMOVAX) Branch Influenza Virus 2020-06-15 Completed Universit y of Vaccine Quad .5 mL 00:00:00 [place] [facility] IM 6+ MO Branch Pneumococcal 2020-06-15 Completed University o f Polysaccharide, 00:00:00 [place] [facility] ical PPSV23 (PNEUMOVAX) Branch Influenza Virus 2020-06-15 Completed Universit y of Vaccine Quad .5 mL 00:00:00 [place] [facility] IM 6+ MO Branch Pneumococcal 2020-06-15 [...] y of Vaccine Quad .5 mL 00:00:00 [place] [facility] IM 6+ MO Branch Pneumococcal 2020-06-15 Completed University o f Polysaccharide, 00:00:00 [place] [facility] ical PPSV23 (PNEUMOVAX) Branch Influenza Virus 2020-06-15 Completed Universit y of Vaccine Quad .5 mL 00:00:00 [facility] IM 6+ MO Branch Pneumococcal 2020-06-15 Completed University o f Polysaccharide, 00:00:00 [place] [facility] ical PPSV23 (PNEUMOVAX) Branch Influenza Virus 2020-06-15 Completed Universit y of Vaccine Quad .5 mL 00:00:00 [facility] 6+ MO [place] Vital Signs Vital Name Observation Time Observation Value Comments Source Systolic blood 2022-08-07 17:58:00 114 mm[Hg] Univer sity of pressure [facility] Diastolic blood 2022-08-07 17:58:00 59 mm[Hg] Unive rsity of pressure [facility] Heart rate 2022-08-07 17:58:00 92 /min [facility] Body height 2022-08-07 17:58:00 165.1 cm [facility] Body weight 2022-08-07 17:58:00 115.214 kg [facility] BMI 2022-08-07 17:58:00 42.27 kg/m2 [facility] Oxygen saturation in 2022-08-07 17:58:00 91 /min University of Arterial blood by [facility] ashley Pulse oximetry Branch Systolic blood 2022-07-19 22:01:00 145 mm[Hg] Univer sity of pressure [place] [facility] Diastolic blood 2022-07-19 22:01:00 73 mm[Hg] Unive rsity of pressure [place] [facility] Heart rate 2022-07-19 22:01:00 91 /min Universi ty of [place] [facility] Respiratory rate 2022-07-19 22:01:00 15 /min Univ ersity of [place] [facility] Oxygen saturation in 2022-07-19 22:01:00 92 /min University of Arterial blood by [facility] Pulse oximetry Branch Body temperature 2022-07-19 19:11:00 36.72 Jeanne Univ ersity of [place] [facility] Body weight 2022-07-19 19:11:00 111.585 kg Universi ty of [place] [facility] BMI 2022-07-19 19:11:00 40.94 kg/m2 Universi ty [facility] [place] [facility] Systolic blood 2022-07-16 16:47:00 139 mm[Hg] Univer sity of pressure [place] [facility] Diastolic blood 2022-07-16 16:47:00 78 mm[Hg] Unive rsity of pressure [place] [facility] Heart rate 2022-07-16 16:45:00 83 /min Universi ty [facility] [place] [facility] Respiratory rate 2022-07-16 16:45:00 22 /min Univ ersity of [place] [facility] Body height 2022-07-16 16:45:00 165.1 cm [facility]i ty [facility] [place] [facility] Body weight 2022-07-16 16:45:00 111.585 kg [facility] [place] [facility] BMI 2022-07-16 16:45:00 40.94 kg/m2 [facility] [place] [facility] Oxygen saturation in 2022-07-16 16:45:00 93 /min University of Arterial blood by [facility] ashley Pulse oximetry Branch Systolic blood 2022-06-10 20:16:00 138 mm[Hg] Univer sity of pressure [place] [facility] Diastolic blood 2022-06-10 20:16:00 72 mm[Hg] Unive rsity of pressure [place] [facility] Heart rate 2022-06-10 20:16:00 84 /min [facility]i ty [facility] [place] [facility] Body weight 2022-06-10 20:16:00 111.993 kg [facility] [place] [facility] BMI 2022-06-10 20:16:00 41.09 kg/m2 [facility]i ty [facility] [place] [facility] Oxygen saturation in 2022-06-10 20:16:00 95 /min University of Arterial blood by [place] [employer] ashley Pulse oximetry Branch Systolic blood 2022-06-04 16:31:00 138 mm[Hg] Univer sity of pressure [place] [facility] Diastolic blood 2022-06-04 16:31:00 80 mm[Hg] Unive rsity of pressure [place] [facility] Heart rate 2022-06-04 16:00:00 95 /min Universi ty [facility] [place] [facility] Body temperature 2022-06-04 16:00:00 36.94 Jeanne Univ ersity of [place] [facility] Body height 2022-06-04 16:00:00 165.1 cm [facility]i ty [facility] [place] [facility] Body weight 2022-06-04 16:00:00 111.131 kg [facility]i [facility] [place] [facility] BMI 2022-06-04 16:00:00 40.77 kg/m2 [facility]i ty [facility] [place] [facility] Oxygen saturation in 2022-06-04 16:00:00 95 /min University of Arterial blood by [place] [employer] ashley Pulse oximetry Branch Systolic blood 2022-05-29 18:11:00 161 mm[Hg] Univer sity of pressure [place] [facility] Diastolic blood 2022-05-29 18:11:00 78 mm[Hg] Unive rsity of pressure [place] [facility] Heart rate 2022-05-29 18:11:00 89 /min Universi ty [facility] [place] [facility] Respiratory rate 2022-05-29 18:11:00 20 /min Univ ersity of [place] [facility] Oxygen saturation in 2022-05-29 18:11:00 98 /min University of Arterial blood by [place] [employer] ashley Pulse oximetry Branch Body temperature 2022-05-29 15:16:00 37.06 Jeanne Univ ersity of [place] [facility] Body height 2022-05-29 15:16:00 165.1 cm [facility]i ty [facility] [place] [facility] Body weight 2022-05-29 15:16:00 113.399 kg [facility]i [facility] [place] [facility] BMI 2022-05-29 15:16:00 41.60 kg/m2 [facility]i ty [facility] [place] [facility] Systolic blood 2022-05-23 21:06:00 156 mm[Hg] Univer sity of pressure [place] [facility] Diastolic blood 2022-05-23 21:06:00 78 mm[Hg] Unive rsity of pressure [place] [facility] [place] Heart rate 2022-05-23 21:06:00 87 /min Universi ty of [place] [facility] [place] Body weight 2022-05-23 21:06:00 113.036 kg [facility] [place] [facility] BMI 2022-05-23 21:06:00 41.47 kg/m2 Univers[facility] ty [facility] [place] [facility] Oxygen saturation in 2022-05-23 21:06:00 97 /min University of Arterial blood by [facility] Pulse oximetry Branch Systolic blood 2022-05-08 17:02:00 127 mm[Hg] Univer sity of pressure [place] [facility] [place] Diastolic blood 2022-05-08 17:02:00 77 mm[Hg] Unive rsity of [facility] Heart rate 2022-05-08 16:56:00 87 /min Universi ty of [place] [facility] [place] Body weight 2022-05-08 16:56:00 111.131 kg Universi ty [facility] [place] [facility] [place] BMI 2022-05-08 16:56:00 40.77 kg/m2 Universi ty of [facility] Branch Oxygen saturation in 2022-05-08 16:56:00 96 /min University of Arterial blood by [facility] Pulse oximetry Branch Procedures Procedure Date / Time Performed Performing Clinician Sour e EXTERNAL PROVIDER 2022-08-11 06:01:00 Doctor Unassigned, No [facility] RECORDS Name [facility] COMP. METABOLIC PANEL 2022-07-19 19:57:00 Jesus Spain [facility] ([id number]) [facility] CBC WITH DIFF 2022-07-19 19:57:00 Jesus [place] [facility] LACTIC ACID WHOLE 2022-07-19 19:56:00 Jesus Spain [facility] BLOOD [facility] Branch XR HEEL 2+ VW LEFT 2022-07-19 19:48:20 Jesus [facility] CONSENT/REFUSAL FOR 2022-07-19 19:00:48 Doctor Unassigned, No Un [facility] DIAGNOSIS AND Name Medical Branch TREATMENT SLEEP STUDY DATA 2022-06-19 06:01:00 Doctor Unassigned, No [facility] REPORT Name Medical Branch LIPASE 2022-05-29 16:08:00 Daylin Mojica [facility] TROPONIN I 2022-05-29 16:08:00 Daylin Mojica [facility] COMP. METABOLIC PANEL 2022-05-29 16:08:00 Daylin Mojica Unive [facility] ([id number]) [facility] CBC WITH DIFF 2022-05-29 16:08:00 Daylin Mojica [facility] URINALYSIS 2022-05-29 16:02:00 Daylin Mojica [facility] CONSENT/REFUSAL FOR 2022-05-29 15:11:18 Doctor Unassigned, No Un [facility] DIAGNOSIS AND [facility] TREATMENT POCT HEMOGLOBIN A1C 2022-05-23 21:18:00 Giovany Antoine [facility] PHYSICIAN ORDERS 2022-05-08 05:01:00 [facility]assigned, [facility] Start End Encounter Admission Attending Care Care Encounter Source Date/Time Date/Time Type Type Clinicians Facility Department ID 2021-06-01 Emergency [facility] [id number] Univers 23:56:14 [facility] 2021-06-01 Outpatient JANAE [facility] [id number] Univers 12:13:32 BISI [facility] 2022-11-06 2022-11-06 Outpatient Hany WITT [facility] [id number] Univers 12:30:00 12:30:00 [place] iraida [facility] 2022-09-02 2022-09-02 [facility] [id number] [id number] Univers 00:00:00 00:00:00 [place] [email or web address] 350.1.13.10 it y of [place] 4.2.7.2.686 Sarkis as MAURICIO?BLEA [phone] [address] MEDICAL OFFICE BUILDING 2022-09-01 2022-09-01 Telephone Eduar [facility] [id number] Univers 00:00:00 00:00:00 [place] HEALTH 350.1.13.10 it y of [place] 4.2.7.2.686 Sarkis as MAURICIO?BLEA [phone] [place] ashley SIMPSON [address] [place] MEDICAL OFFICE BUILDING 2022-08-25 2022-08-25 [facility]phone [facility] [id number] Univers 00:00:00 00:00:00 [place] HEALTH 350.1.13.10 it y of [place] [id number] Sarkis as MAURICIO?BLEA [phone] [place] ashley SIM[place]ON [address] [place] MEDICAL OFFICE [facility] 2022-08-20 2022-08-20 Refprabhjot [facility] [id number] [id number] Univers 00:00:00 00:00:00 [place] HEALTH [id number] it y of [place] [id number] Sarkis as MAURICIO?BLEA [phone] [place] ashley [place] [address] [place] MEDICAL OFFICE [facility] 2022-08-16 2022-08-16 [facility] [id number] Univers 00:00:00 00:00:00 [facility] HEALTH 350.1.13.10 it y of [place] [id number] Sarkis as MAURICIO?BLEA [phone] [place] ashley SIMPSON [address] [facility] OFFICE [facility] 2022-08-16 2022-08-16 Refprabhjot [facility] [id number] [id number] Univers 00:00:00 00:00:00 [place] HEALTH 350.1.13.10 it y of [place] 4.2.7.2.686 Sarkis as MAURICIO?BLEA [id number] [place] ashley SIM[place]ON [address] [place] MEDICAL OFFICE [facility] 2022-08-14 2022-08-14 Telephone [facility] [id number] Univers 00:00:00 00:00:00 [place] HEALTH 350.1.13.10 it y of [place] 4.2.7.2.686 Sarkis as MAURICIO?BLEA [phone] [place] ash[place] [address] MEDICAL OFFICE [facility] 2022-08-11 2022-08-11 Orders Doctor MATHEWS [id number] Univers 00:00:00 00:00:00 Only Unassigned, BRIAN 350.1.13.10 ity of [place] [facility] 4.2.7.2.686 Sarkis as [phone] [address] 2022-08-09 2022-08-09 Telephone [facility] [id number] Univers 00:00:00 00:00:00 [facility] 350.1.13.10 it y of [place] 4.2.7.2.686 Sarkis as MAURICIO?BLEA [phone] [address] MEDICAL OFFICE [facility] 2022-08-08 2022-08-08 Telephone [facility] [id number] Univers 00:00:00 00:00:00 [facility] 350.1.13.10 it y of [place] 4.2.7.2.686 Sarkis as MAURICIO?BLEA [id number] [address] OFFICE [facility] 2022-08-08 2022-08-08 Telephone [facility] [id number] Univers 00:00:00 00:00:00 [facility] 350.1.13.10 it y of [place] 4.2.7.2.686 Sarkis as MAURICIO?BLEA [phone] [address] OFFICE [facility] 2022-08-07 2022-08-07 Office [facility] [id number] [id number] Univers 12:00:00 12:15:00 Visit [facility] 350.1.13.10 it y of [place] 4.2.7.2.686 Sarkis as MAURICIO?BLEA [id number] [address] OFFICE [facility] 2022-08-07 2022-08-07 Outpatient [facility] [id number] Univers 12:00:00 12:00:00 [place] ity [facility] 2022-08-03 2022-08-03 Nurse BISI Weems [id number] [id number] Univers 00:00:00 00:00:00 Triage Oleg Hany BRIAN 350.1.13.10 it y of HOSPITAL 4.2.7.2.686 Sarkis as [id number] [facility] 019 [place] 2022-07-29 2022-07-29 Refprabhjot [facility]PRES[facility] 1.2.840.114 [id number] Univers 00:00:00 00:00:00 [place] HEALTH 350.1.13.10 it y of [place] 4.2.7.2.686 Sarkis as MAURICIO?BLEA [id number] [facility] [facility] [address] [place] MEDICAL OFFICE [facility] 2022-07-22 2022-07-22 Refprabhjot GaminoPRESBYTER[facility] 1.2.840.114 [id number] Univers 00:00:00 00:00:00 Marylou HEALTH 350.1.13.10 it y of [place] 4.2.7.2.686 Sarkis as MAURICIO?BLEA [phone] [facility] [address] [facility] OFFICE [facility] 2022-07-21 2022-07-21 Telephone [place] [facility] [id number] Univers 00:00:00 00:00:00 Claudia Ballesteros [place] 350.1.13.10 i ty of [place] 4.2.7.2.686 [place] [facility] [id number] [place] [facility] 059 [facility] 2022-07-19 2022-07-19 Emergency X [facility] ERT [id number] Univers 13:12:00 16:24:00 JESUS ity [facility] 2022-07-19 2022-07-19 Emergency [facility] [id number] Univers 13:12:00 16:24:00 Jesus [place] 350.1.13.10 i ty [place] 4.2.7.2.686 [place] [id number] [facility] 084 [place] 2022-07-17 2022-07-17 Telephone [facility] [id number] Univers 00:00:00 00:00:00 [facility] 350.1.13.10 it y of [place] 4.2.7.2.686 Sarkis as MAURICIO?BLEA [id number] [place] [facility] 044 [facility] 2022-07-16 2022-07-16 Office [facility] [id number] Univers 10:30:00 11:00:00 Visit Rachell BRADLEY 350.1.13.10 ity [facility] 4.2.7.2.[place] PROF[place] [id number] [facility] 085 [facility] 2022-07-16 2022-07-16 Outpatient R RACHELL CHENG [facility] [id number] Univers 10:30:00 10:30:00 MARQUIS CHENGINLesli [facility] 2022-07-15 2022-07-15 Telephone [facility] [id number] Univers 00:00:00 00:00:00 [place] HEALTH 350.1.13.10 it y of [place] 4.2.7.2.686 Sarkis as MAURICIO?BLEA [id number] [place] ashley SIMPSON 044 [facility] OFFICE [facility] 2022-07-14 2022-07-14 Telephone [facility] [id number] Univers 00:00:00 00:00:00 Claudia L [place] 350.1.13.10 i [place]2.7.2.[place] [phone] [facility] 059 [facility] 2022-07-07 2022-07-07 Telephone [facility] [id number] Univers 00:00:00 00:00:00 Claudia L [place] 350.1.13.10 i ty [place]2.[place].2.[place] [phone] [facility] 059 [facility] 2022-07-03 2022-07-03 Outpatient R BEN [facility] [id number] Univers 11:30:00 11:30:00 ROSETTE [facility] 2022-07-02 2022-07-02 Refill [facility] [id number] Univers 00:00:00 00:00:00 [place] HEALTH 350.1.13.10 it y [facility] [place] 4.2.7.2.686 S[place]is as MAURICIO?BLEA [phone] [address] OFFICE [facility] 2022-06-30 2022-06-30 Refprabhjot WittPRESBY[facility] 1.2.840.114 [id number] Univers 00:00:00 00:00:00 [place] HEALTH 350.1.13.10 it y of [facility] [place] 4.2.7.2.686 Sarkis as MAURICIO?BLEA [id number] [address] OFFICE [facility] 2022-06-30 2022-06-30 Telephone [facility] [id number] Univers 00:00:00 00:00:00 Claudia BRADLEY 350.1.13.10 i ty [facility] 4.2.7.2.[address] [place] [address] [facility] [id number] [facility] 059 [facility] 2022-06-25 2022-06-25 Telephone [facility] [id number] Univers 00:00:00 00:00:00 Rosette A HEALTH 350.1.13.10 i ty of [place] 4.2.7.2.686 Sarkis as MAURICIO?BLEA [phone] [address] OFFICE [facility] 2022-06-19 2022-06-19 [employer] Brenda [facility] 1.2 .840.114 [id number] Univers 13:00:00 13:15:00 Visit Rachell Cheng 350.1.13. 10 ity [facility] 4.2.7.2.[place] [id number] [address] 2022-06-19 2022-06-19 Outpatient R RACHELL CHENG [facility] [id number] Univers 13:00:00 13:00:00 RACHELL CHENG ity of [facility] 2022-06-19 2022-06-19 Orders Doctor MATHEWS 1.2.840.114 [id number] Univers 00:00:00 00:00:00 Only Unassigned, BRIAN 350.1.13.10 ity of [place] [facility] 4.2.7.2.686 Sarkis as [id number] [address] 2022-06-19 2022-06-19 Refill [facility] 1.2.840.114 [id number] Univers 00:00:00 00:00:00 [facility] 350.1.13.10 it y of [place] 4.2.7.2.686 Sarkis as MAURICIO?BLEA [id number] [address] 2022-06-18 2022-06-18 Outpatient R RACHELL CHENG [facility] [id number] Univers 13:00:00 13:00:00 [facility]ENTERLes[facility] ity [facility] 2022-06-17 2022-06-17 Telephone Eduar [facility] 1.2.120.348 [id number] Univers 00:00:00 00:00:00 [facility] 350.1.13.10 it y of [place] 4.2.7.2.686 Sarkis as MAURICIO?BLEA [id number] [address] 2022-06-16 2022-06-[address] 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 2, Adc Lab [facility] 1.2.840.114 [id number] Univers 11:15:00 11:30:00 Visit Claudia Porter 350.1.13.10 [facility] 4.2.7.2.[place] [id number] [facility] 353 [facility] 2022-06-13 2022-06-13 Outpatient R CHARLOTTE [facility] [id number] Univers 11:15:00 11:15:00 CLAUDIA copeland [facility] 2022-06-12 2022-06-12 Telephone [facility]ferozPRES[facility] 1.2.204.077 [id number] Univers 00:00:00 00:00:00 Claudia BRADLEY 350.1.13.10 i [place] [id number] [address] 2022-06-12 2022-06-12 Telephone [facility]PRESBYTER[facility] 1.2.955.291 [id number] Univers 00:00:00 00:00:00 [facility] 350.1.13.10 it y of [facility] [place] 4.2.7.2.686 Sarkis as MAURICIO?BLEA [phone] Ks dic[address] OFFICE [facility] 2022-06-11 2022-06-11 Outpatient R [facility] [id number] Univers 10:08:55 23:59:00 JEFFERSON copeland [facility] 2022-06-11 2022-06-11 [facility] 1.2.840.114 [id number] Univers 10:08:55 23:59:00 Encounter [place] MIRNA 350.1.13.10 ity [facility] 4.2.7.2.[place] [id number] [address] 2022-06-10 2022-06-10 Outpatient R [facility] [id number] Univers 14:20:00 16:26:04 CALUDIA copeland [facility] 2022-06-10 2022-06-10 Office [facility] 1.2.840.114 [id number] Univers 14:20:00 16:26:04 Visit Claudia BRADLEY 350.1.13.10 i ty [facility] 4.2.7.2.[place] [id number] [address] 2022-06-05 2022-06-05 Viktoriya GaminoPRESBYTERIAN [facility] 1.2.840.114 [id number] Univers 00:00:00 00:00:00 Marylou HEALTH 350.1.13.10 it y of [facility] [place] 4.2.7.2.686 Sarkis as MAURICIO?BLEA [id number] Ks ashley SIMPSON [address] [facility] OFFICE [facility] 2022-06-04 2022-06-04 Outpatient R BEN [facility] [id number] Univers 10:30:00 11:55:43 ROSETTE copeland [facility] 2022-06-04 2022-06-04 Office [facility]PRES[facility] 1.2.840.114 [id number] Univers 10:30:00 11:55:43 Visit Rosette Elena [facility] 350.1.13.10 i ty of [place] 4.2.7.2.686 Sarkis as MAURICIO?BLEA [id number] Ks ashley SIMPOSN 044 [facility] 2022-06-04 2022-06-04 Refprabhjot WittPRESBYTERIAN [facility] 1.2.840.114 [id number] Univers 00:00:00 00:00:00 [facility] 350.1.13.10 it y of [place] 4.2.7.2.686 Sarkis as MAURICIO?BLEA [id number] Ks ashley JUAREZ 044 [facility] OFFICE [facility] 2022-05-29 2022-05-29 Emergency X [place] [facility] [id number] Univers 10:17:00 14:59:00 DAYLINSNOW copeland [facility] 2022-05-29 2022-05-29 Emergency [facility] 1.2.329.103 [id number] Univers 10:17:00 14:59:00 Daylin BRADLEY 350.1.13.10 ity [facility] 4.2.7.2.686 [place] [facility] [id number] [address] 2022-05-29 2022-05-29 Telephone [facility] 1.2.204.549 [id number] Univers 00:00:00 00:00:00 [facility] 350.1.13.10 it y of [place] 4.2.7.2.686 Sarkis as MAURICIO?BLEA [phone] Ks ashley SIMPSON [address] [place] [address] [address] [facility] 2022-05-29 2022-05-29 Refprabhjot WittPRESBYTERIAN HOSP[facility] 1.2.840.114 [id number] Univers 00:00:00 00:00:00 [facility] 350.1.13.10 it y of [place] 4.2.7.2.686 Sarkis as MAURICIO?BLEA [id number] [place] ashley JUAREZ [address] MEDICAL OFFICE [facility] 2022-05-27 2022-05-27 Telephone [facility] 1.2.621.521 [id number] Univers 00:00:00 00:00:00 [facility] 350.1.13.10 it y of [place] 4.2.7.2.686 Sarkis as MAURICIO?BLEA [phone] [facility] [address] MEDICAL OFFICE [facility] 2022-05-27 2022-05-27 Telephone Team, [facility] BISI 1.2.840.114 [id number] Univers 00:00:00 00:00:00 Health BRIAN 350.1.13.10 it y of [facility] 4.2.7.2.686 [place] [id number] [address] 2022-05-23 2022-05-23 Outpatient R [facility] [id number] Univers 16:30:00 17:15:04 GIOVANY copeland [facility] 2022-05-23 2022-05-23 Office [facility] 1.2.756.059 [id number] Univers 16:30:00 17:15:04 Visit Giovany [email or web address] 350.1.13.10 it y of [place] 4.2.7.2.686 Sarkis as MAURICIO?BLEA [id number] [facility] [address] MEDICAL OFFICE [facility] 2022-05-23 2022-05-23 Outpatient R [facility] [id number] Univers 16:30:00 16:30:00 GIOVANY copeland [facility] 2022-05-23 2022-05-23 Refprabhjot GaminoPRESBYTERIAN [facility] 1.2.840.114 [id number] Univers 00:00:00 00:00:00 Marylou HEALTH 350.1.13.10 it y of [place] 4.2.7.2.686 Sarkis as MAURICIO?BLEA [id number] [facility] [address] MEDICAL OFFICE [facility] 2022-05-23 2022-05-23 Viktoriya Witt [facility] 1.2.840.114 [id number] Univers 00:00:00 00:00:00 [facility] 350.1.13.10 it y of [place] 4.2.7.2.686 Sarkis as MAURICIO?BLEA [id number] [address] OFFICE [facility] 2022-05-20 2022-05-20 Refill [facility]PRES[facility] 1.2.840.114 [id number] Univers 00:00:00 00:00:00 [facility] 350.1.13.10 it y of [place] 4.2.7.2.686 Sarkis as MAURICIO?BLEA [id number] [address] OFFICE [facility] 2022-05-08 2022-05-08 Outpatient R [facility] [id number] Univers 12:00:00 12:18:22 JEFFERSON ity [facility] 2022-05-08 2022-05-08 Office [facility]PRESBY[facility] 1.2.840.114 [id number] Univers 12:00:00 12:18:22 Visit [facility] 350.1.13.10 it y of [facility] [place] 4.2.7.2.686 Sarkis as MAURICIO?BLEA [id number] [address] 2022-05-08 2022-05-08 Outpatient R [facility] [id number] Univers 12:00:00 12:00:00 JEFFERSON ity [facility] 2022-05-08 2022-05-08 Telephone [facility] 1.2.943.774 [id number] Univers 00:00:00 00:00:00 [facility] 350.1.13.10 it y of [place] 4.2.7.2.686 Sarkis as MAURICIO?BLEA [id number] [address] OFFICE [facility] 2022-05-08 2022-05-08 Orders Doctor MATHEWS 1.2.840.114 [id number] Univers 00:00:00 00:00:00 Only Unassigned, BRIAN 350.1.13.10 ity of [place] [facility] 4.2.7.2.686 Sarkis as [id number] [address] 2022-05-07 2022-05-07 Viktoriya WittPRESBYTERIAN HOSPITAL 1.2.840.114 [id number] Univers 00:00:00 00:00:00 [facility] 350.1.13.10 it y of [place] 4.2.7.2.686 Sarkis as MAURICIO?BLEA [id number] Ks ashley SIMPSON [address] MEDICAL OFFICE [facility] 2022-05-06 2022-05-06 Viktoriya WittPRESBYTERIAN HOS[facility] 1.2.840.114 [id number] Univers 00:00:00 00:00:00 [facility] 350.1.13.10 it y of [place] 4.2.7.2.686 Sarkis as MAURICIO?BLEA [id number] [address] OFFICE [facility] 2022-04-29 2022-04-29 Viktoriya GaminoPRESBYTERIAN [facility]OS[facility] 1.2.840.114 [id number] Univers 00:00:00 00:00:00 Marylou HEALTH 350.1.13.10 it y of [place] 4.2.7.2.686 Sarkis as MAURICIO?BLEA [id number] [facility] CORRINE [address] [facility] OFFICE [facility] 2022-04-24 2022-04-24 Outpatient Hany WITT [facility] [id number] Univers 00:00:00 00:00:00 JEFFERSON itiraida [facility] 2022-04-24 2022-04-24 Viktoriya WittPRESBYTERIAN [facility] 1.2.840.114 [id number] Univers 00:00:00 00:00:00 [place] [facility] 350.1.13.10 it y of [place] 4.2.7.2.686 Sarkis as MAURICIO?BLEA [id number] [facility] CORRINE[address] MEDICAL OFFICE [facility] 2022-04-23 2022-04-23 Viktoriya WittPRESBYTERIAN [facility] 1.2.840.114 [id number] Univers 00:00:00 00:00:00 [facility] 350.1.13.10 it y of [place] 4.2.7.2.686 Sarkis as MAURICIO?BLEA [id number] [facility] JUAREZ[address] MEDICAL OFFICE [facility] 2022-04-23 2022-04-23 Refprabhjot WittPRESBYTERIAN HOSP[facility] 1.2.840.114 [id number] Univers 00:00:00 00:00:00 [facility] 350.1.13.10 it y of [place] 4.2.7.2.686 Sarkis as MAURICIO?BLEA [id number] [address] OFFICE [facility] 2022-04-09 2022-04-09 [facility] WittPRESBYTERIAN [facility] 1.2.840.114 [id number] Univers 00:00:00 00:00:00 [facility] 350.1.13.10 it y of [place] 4.2.7.2.686 Sarkis as MAURICIO?BLEA [id number] [address] OFFICE [facility] 2022-04-08 2022-04-08 Juan WittPRESBYTERIAN [facility] 1.2.285.374 [id number] Univers 00:00:00 00:00:00 [facility] 350.1.13.10 it y of [place] 4.2.7.2.686 Sarkis as MAURICIO?BLEA [id number] [address] OFFICE [facility] 2022-03-31 2022-03-31 [facility] Hospitalprabhjot WittPRESBYTERIAN [facility] 1.2.840.114 [id number] Univers 00:00:00 00:00:00 [place] [facility] 350.1.13.10 it y of [place] 4.2.7.2.686 Sarkis as MAURICIO?BLEA [id number] [address] 2022-03-27 2022-03-27 Outpatient R [facility] [id number] Univers 13:20:00 13:20:00 JEFFERSON ity of [facility] 2022-03-26 2022-03-26 [facility] Hospitalprabhjot WittPRESBYTERIAN [facility] 1.2.840.114 [id number] Univers 00:00:00 00:00:00 [place] [facility] 350.1.13.10 it y of [place] 4.2.7.2.686 Sarkis as MAURICIO?BLEA [id number] [address] OFFICE [facility] 2022-03-11 2022-03-11 [facility] Hospitalprabhjot WittPRESBYTERIAN [facility] 1.2.840.114 [id number] Univers 00:00:00 00:00:00 [facility] 350.1.13.10 it y of [place] 4.2.7.2.686 Sarkis as MAURICIO?BLEA [phone] Ks dical KNEY [address] MEDICAL OFFICE [facility] 2022-03-06 2022-03-06 Telephone WittPRESBYTERIAN [facility] 1.2.181.352 [id number] Univers 00:00:00 00:00:00 [facility] 350.1.13.10 it y of [place] 4.2.7.2.686 Sarkis as MAURICIO?BLEA [id number] Ks dical CORRINE[address] MEDICAL OFFICE [facility] 2022-03-01 2022-03-01 Refill WittPRESBYTERIAN [facility] 1.2.840.114 [id number] Univers 00:00:00 00:00:00 [facility] 350.1.13.10 it y of [place] 4.2.7.2.686 Sarkis as MAURICIO?BLEA [phone] Ks dicguilherme JUAREZ[address] MEDICAL OFFICE [facility] 2022-02-27 2022-02-27 [facility] StevensonPRESBYTERIAN [facility] 1.2.840.114 [id number] Univers 00:00:00 00:00:00 Marylou HEALTH 350.1.13.10 it y of [place] 4.2.7.2.686 Sarkis as MAURICIO?BLEA [phone] [facility] [address] MEDICAL OFFICE [facility] 2022-02-26 2022-02-26 Telephone ElinaPRESBYTERIAN HOSPITAL 1.2.840.114 [id number] Univers 00:00:00 00:00:00 Giovany HEALTH 350.1.13.10 it y of [place] 4.2.7.2.686 Sarkis as MAURICIO?BLEA [phone] Ks dical KN [address] MEDICAL OFFICE BUILDING 2022-02-24 2022-02-24 Telephone WittPRESBYTERIAN [facility] 1.2.971.543 [id number] Univers 00:00:00 00:00:00 [facility] 350.1.13.10 it y of [place] 4.2.7.2.686 Sarkis as MAURICIO?BLEA [id number] Ks dical KN[address] OFFICE [facility] 2022-02-24 2022-02-24 Refill EduarPRESBYTERIAN [facility] 1.2.840.114 [id number] Univers 00:00:00 00:00:00 [facility] 350.1.13.10 it y of [place] 4.2.7.2.686 Sarkis as MAURICIO?BLEA [id number] [address] OFFICE [facility] 2022-02-21 2022-02-21 Outpatient Hany VEGA [facility] [id number] Univers 10:45:00 10:45:00 ARMINDA iraida [facility] 2022-02-11 2022-02-11 Telephone EduarPRESBYTERIAN [facility] 1.2.727.132 [id number] Univers 00:00:00 00:00:00 [facility] 350.1.13.10 it y of [place] 4.2.7.2.686 Sarkis as MAURICIO?BLEA [id number] [address] OFFICE [facility] 2022-02-10 2022-02-10 Telephone [facility]PRES[facility] 1.2.460.030 [id number] Univers 00:00:00 00:00:00 [facility] 350.1.13.10 it y of [place] 4.2.7.2.686 Sarkis as MAURICIO?BLEA [id number] [address] 2022-02-05 2022-02-05 Outpatient R [facility] [id number] Univers 09:45:00 10:02:08 JEFFERSON itiraida [facility] 2022-02-05 2022-02-05 Office [facility]PRES[facility] 1.2.840.114 [id number] Univers 09:45:00 10:02:08 Visit [facility] 350.1.13.10 it y of [place] 4.2.7.2.686 Sarkis as MAURICIO?BLEA [id number] [address] OFFICE [facility] 2022-02-05 2022-02-05 Refill EduarPRESBYTERIAN [facility] 1.2.840.114 [id number] Univers 00:00:00 00:00:00 [facility] 350.1.13.10 it y of [place] 4.2.7.2.686 Sarkis as MAURICIO?BLEA [phone] Me dical CALVIN [address] MEDICAL OFFICE [facility] 2022-02-05 2022-02-05 Refprabhjot WittPRESBYTERIAN HOSPITAL 1.2.840.114 [id number] Univers 00:00:00 00:00:00 [facility] 350.1.13.10 it y of [place] 4.2.7.2.686 Sarkis as MAURICIO?BLEA [phone] Ks dical CALVIN [address] MEDICAL OFFICE [facility] 2022-02-05 2022-02-05 Telephone MariannPRESBYTERIAN HOSPITAL 1.2.225.246 [id number] Univers 00:00:00 00:00:00 [facility] HEALTH 350.1.13.10 it y of [place] 4.2.7.2.686 Sarkis as MAURICIO?BLEA [phone] Ks dical CALVIN [address] [facility] OFFICE [facility] 2022-02-05 2022-02-05 Orders Doctor BISI 1.2.840.114 [id number] Univers 00:00:00 00:00:00 Only Unassigned, BRIAN 350.1.13.10 ity of [place] [facility] 4.2.7.2.686 Sarkis as [id number] [address] 2022-01-31 2022-01-31 Refprabhjot AntoinePRESBYTERIAN HOSPITAL 1.2.268.883 [id number] [id number] Univers 00:00:00 00:00:00 [facility] [place] HEALTH 350.1.13.10 it y of [place] 4.2.7.2.686 Sarkis as MAURICIO?BLEA [id number] Ks dical CALVIN [address] MEDICAL OFFICE [facility] 2022-01-27 2022-01-27 Refprabhjot MorrowPRESBYTERIAN HOSPITAL 1.2.840.114 [id number] Univers 00:00:00 00:00:00 Andrea HEALTH 350.1.13.10 it y of [place] 4.2.7.2.686 Sarkis as MAURICIO?BLEA [phone] Ks dicguilherme SIMPSON 0[address] [facility] OFFICE [facility] 2022-01-26 2022-01-26 Refprabhjot AntoinePRESBYTERIAN HOSPITAL 1.2.673.352 [id number] Univers 00:00:00 00:00:00 Giovany [facility] 350.1.13.10 it y of [place] 4.2.7.2.686 Sarkis as MAURICIO?BLEA [phone] Ks ashley SIMPSON [address] [facility] OFFICE [facility] 2022-01-24 2022-01-24 Outpatient R [facility] [id number] Univers 15:30:00 15:30:00 [facility] 2022-01-24 2022-01-24 Outpatient [facility] [id number] Univers 15:30:00 15:30:00 [facility] 2022-01-13 2022-01-13 Telephone [facility]arPRESBYTERIAN [facility] 1.2.812.520 [id number] Univers 00:00:00 00:00:00 [place] HEALTH 350.1.13.10 it y of [place] 4.2.7.2.686 Sarkis as MAURICIO?BLEA [phone] Ks ashley SIMPSON [address] [facility] OFFICE [facility] 2022-01-10 2022-01-10 Outpatient [facility] [id number] Univers 15:30:00 15:30:00 [facility] 2022-01-09 2022-01-09 Outpatient R [facility] [id number] Univers 10:30:00 10:37:24 [facility] [place] 2022-01-09 2022-01-09 Office MariannPRESBYTERIAN [facility] 1.2.840.114 [id number] Univers 10:30:00 10:37:24 Visit [facility] 350.1.13.10 it y of [place] 4.2.7.2.686 Sarkis as MAURICIO?BLEA [phone] Ks ashley SIMPSON [address] [facility] OFFICE [facility] 2022-01-09 2022-01-09 Outpatient R [facility] [id number] Univers 10:30:00 10:37:24 [facility] [place] 2022-01-02 2022-01-02 Office MariannPRESBYTERIAN [facility] 1.2.840.114 [id number] Univers 10:30:00 10:45:00 Visit [facility] 350.1.13.10 it y of [place] 4.2.7.2.686 Sarkis as MAURICIO?BLEA [id number] Ks ashley SIMPSON [address] [facility] OFFICE [facility] 2022-01-02 2022-01-02 Outpatient Hany MARIANN [facility] [id number] Univers 10:30:00 10:30:00 [facility] [place] 2022-01-02 2022-01-02 Outpatient Hany MARIANN [facility] [id number] Univers 10:30:00 10:30:00 [facility] [place] 2021-12-31 2021-12-31 [facility]PRES[facility] 1.2.840.114 [id number] Univers 00:00:00 00:00:00 [place] [facility] 350.1.13.10 it y of [place] 4.2.7.2.686 Sarkis as MAURICIO?BLEA [phone] Ks ashley SIMPSON 044 [facility] 2021-12-31 2021-12-31 [facility] WittPRESBYTERIAN [facility] 1.2.840.114 [id number] Univers 00:00:00 00:00:00 [facility] 350.1.13.10 it y of [place] 4.2.7.2.686 Sarkis as MAURICIO?BLEA [phone] Ks ashley SIMPSON 044 [facility] 2021-12-26 2021-12-26 Outpatient Hany [facility] [id number] Univers 14:00:00 14:37:45 [facility] [place] 2021-12-26 2021-12-26 Office MariannPRESBYTERIAN [facility] 1.2.840.114 [id number] Univers 14:00:00 14:37:45 Visit [facility] 350.1.13.10 it y of [place] 4.2.7.2.686 Sarkis as MAURICIO?BLEA [phone] Ks ashley SIMPSON [address] [facility] OFFICE [facility] 2021-12-26 2021-12-26 Telephone ElinaPRESBYTERIAN [facility] 1.2.840.114 [id number] Univers 00:00:00 00:00:00 [facility] [place] HEALTH 350.1.13.10 it y of [place] 4.2.7.2.686 Sarkis as MAURICIO?BLEA [phone] Me ashley SIMPSON [address] [facility] OFFICE [facility] 2021-12-26 2021-12-26 Telephone AntoinePRESBYTERIAN [facility]OSPITAL 1.2.840.114 [id number] Univers 00:00:00 00:00:00 Giovany [email or web address] 350.1.13.10 it y of [place] 4.2.7.2.686 Sarkis as MAURICIO?BLEA [phone] Ks ashley SIMPSON [address] [facility] OFFICE [facility] 2021-12-25 2021-12-25 Refill WittPRESBYTERIAN [facility] 1.2.840.114 [id number] Univers 00:00:00 00:00:00 [facility] 350.1.13.10 it y of [place] 4.2.7.2.686 Sarkis as MAUIRCIO?BLEA [phone] Ks ashley SIMPSON 044 [facility] 2021-12-19 2021-12-19 Outpatient R [facility]ANTRUMBULL [facility] [id number] Univers 10:15:00 11:07:04 DILAN [facility] 2021-12-19 2021-12-19 Office IvanPRESBYTERIAN [facility] 1.2.603.272 [id number] Univers 10:15:00 11:07:04 Visit Dilan L [email or web address] 350.1.13.10 it y of [place] 4.2.7.2.686 Sarkis as MAURICIO?BLEA [phone] Ks ashley SIMPSON 198 [facility] 2021-12-17 2021-12-17 Telephone EduarPRESBYTERIAN [facility] 1.2.095.374 [id number] Univers 00:00:00 00:00:00 [facility] 350.1.13.10 it y of [place] [id number] Sarkis as MAURICIO?BLEA [phone] Ks ashley SIMPSON 044 [facility] 2021-12-12 2021-12-12 Outpatient R MARIANN [facility] [id number] Univers 10:15:00 11:10:34 NOEMI copeland [facility] 2021-12-12 2021-12-12 Office [facility] [id number] Univers 10:15:00 11:10:34 Visit Noemi [facility] [id number] it y of [place] [id number] Sarkis as MAURICIO?BLEA [phone] Ks ashley SIMPSON 198 [place] [facility] 2021-12-12 2021-12-12 Outpatient Hany WAITE [facility] [id number] Univers 10:15:00 [facility]:10:[facility] 2021-12-12 2021-12-12 Outpatient Hany WAITE [facility] [id number] Univers 10:15:00 10:15:00 [facility] 2021-12-11 2021-12-11 Telephone [facility] [id number] Univers 00:00:00 00:00:00 [facility] [id number] it y of [place] [id number] Sarkis as MAURICIO?BLEA [phone] Ks ashley JUAREZ 044 [facility] OFFICE [facility] 2021-12-10 2021-12-10 [employer] [facility], [facility] [id number] Univers 10:00:00 10:15:00 Visit [place] [facility] [id number] ity of [place] [id number] Sarkis as MAURICIO?BLEA [phone] Ks ashley SIMPSON 353 [facility] OFFICE [facility] 2021-12-10 2021-12-10 Outpatient R EDUAR [facility] [id number] Univers 10:00:00 10:00:00 [place] iraida [facility] 2021-12-10 2021-12-10 Office [facility] [id number] [id number] Univers 09:45:00 10:00:00 Visit [facility] [id number] it y of [place] [id number] Sarkis as MAURICIO?BLEA [phone] Ks ashley JUAREZ 044 [facility] OFFICE [facility] 2021-12-10 2021-12-10 Outpatient R WITT [facility] [id number] Univers 09:45:00 09:45:00 [facility] 2021-12-05 2021-12-05 Office [facility] [id number] [id number] Univers 14:15:00 14:30:00 Visit [facility] [id number] it y of [place] [id number] Sarkis as MAURICIO?BLEA [phone] Ks ashley SIMPSON 198 [facility] OFFICE [facility] 2021-12-05 2021-12-05 [facility] [id number] Univers 14:15:00 14:15:00 [facility] 2021-12-05 2021-12-05 [facility] [id number] Univers 14:15:00 14:15:00 [facility] 2021-12-05 2021-12-05 Orders Doctor BISI [id number] Univers 00:00:00 00:00:00 Only Unassigned, BRIAN [id number] ity of [place] [facility] [id number] Sarkis as [phone] [address] 2021-12-02 2021-12-02 [facility]ot [facility] 1.2.840.114 [id number] Univers 00:00:00 00:00:00 [facility] [id number] it y of [place] [id number] Sarkis as MAURICIO?BLEA [phone] Ks ashley SIMPSON 044 [facility] OFFICE [facility] 2021-12-01 2021-12-01 Viktoriya Gamino [facility] [id number] [id number] Univers 00:00:00 00:00:00 [facility] 350.1.13.10 it y of [place] 4.2.7.2.686 Sarkis as MAURICIO?BLEA [phone] Ks ashley SIMPSON [address] [facility] OFFICE [facility] 2021-12-01 2021-12-01 Viktoriya [facility] 1.2.840.114 [id number] Univers 00:00:00 00:00:00 [facility] 350.1.13.10 it y of [place] 4.2.7.2.686 Sarkis as MAURICIO?BLEA [id number] Ks ashley SIMPSON [address] MEDICAL OFFICE [facility] 2021-11-27 2021-11-27 Orders Doctor BISI 1.2.840.114 [id number] Univers 00:00:00 00:00:00 Only Unassigned, BRIAN 350.1.13.10 ity of [place] [facility] 4.2.7.2.686 Sarkis as [phone] [address] 2021-11-26 2021-11-26 Telephone [facility] 1.2.637.567 [id number] Univers 00:00:00 00:00:00 Noemi S HEALTH 350.1.13.10 it y of [place] 4.2.7.2.686 Sarkis as MAURICIO?BLEA [phone] Ks ashley SIMPSON [address] [facility] OFFICE [facility] 2021-11-25 2021-11-25 Telephone [facility] 1.2.157.454 [id number] Univers 00:00:00 00:00:00 [facility] 350.1.13.10 it y of [place] 4.2.7.2.686 Sarkis as MAURICIO?BLEA [phone] Ks ashley SIMPSON 0[address] [facility] OFFICE [facility] 2021-11-25 2021-11-25 Telephone [facility]PRES[facility] 1.2.080.153 [id number] Univers 00:00:00 00:00:00 [facility] 350.1.13.10 it y of [place] 4.2.7.2.686 Sarkis as MAURICIO?BLEA [id number] Ks ashley SIMPSON 0[address] [facility] OFFICE [facility] 2021-11-20 2021-11-20 Telephone [facility] 1.2.246.391 [id number] Univers 00:00:00 00:00:00 Noemi S HEALTH 350.1.13.10 it y of [place] 4.2.7.2.686 Sarkis as MAURICIO?BLEA [phone] Ks ashley SIMPSON [address] [facility] OFFICE [facility] 2021-11-19 2021-11-19 Office [facility] 1.2.840.114 [id number] Univers 13:30:00 13:45:00 Visit Noemi S HEALTH 350.1.13.10 it y of [place] 4.2.7.2.686 Sarkis as MAURICIO?BLEA [phone] Ks ashley SIMPSON [address] MEDICAL OFFICE BUILDING 2021-11-19 2021-11-19 Outpatient Hany WAITE [facility] [id number] Univers 13:30:00 13:30:00 NOEMI riaida [facility] 2021-11-13 2021-11-13 Office [facility] 1.2.840.114 [id number] Univers 09:45:00 09:54:37 Visit [facility] 350.1.13.10 it y of [place] 4.2.7.2.686 Sarkis as MAURICIO?BLEA [phone] Ks ashley SIMPSON 0[address] [facility] OFFICE [facility] 2021-11-13 2021-11-13 Outpatient R EDUAR [facility] [id number] Univers 09:45:00 09:54:37 [facility] 2021-11-13 2021-11-13 Outpatient R EDUAR [facility] [id number] Univers 09:45:00 09:45:00 [facility] 2021-11-13 2021-11-13 Outpatient R EDUAR [facility] [id number] Univers 09:45:00 09:45:00 [facility] 2021-11-12 2021-11-12 Refprabhjot WittPRESBYTERIAN [facility] 1.2.840.114 [id number] Univers 00:00:00 00:00:00 [facility] 350.1.13.10 it y of [place] 4.2.7.2.686 Sarkis as PROFESSIO [phone] Ks ashley WYNN [address] OFFICE [facility] ONE 2021-11-11 2021-11-11 Viktoriya Gamnio [facility] 1.2.840.114 [id number] Univers 00:00:00 00:00:00 Marylou HEALTH 350.1.13.10 it y of [place] 4.2.7.2.686 Sarkis as MAURICIO?BLEA [phone] Ks ashley SIMPSON [address] [facility] OFFICE BUILDING 2021-11-04 2021-11-04 Refprabhjot WittPRESBYTERIAN H[facility] 1.2.840.114 [id number] Univers 00:00:00 00:00:00 [facility] 350.1.13.10 it y of [place] 4.2.7.2.686 Sarkis as MAURICIO?BLEA [phone] Me dical CALVIN [address] MEDICAL OFFICE [facility] 2021-11-01 2021-11-01 [facility] GaminoPRESBYTERIAN [facility] 1.2.840.114 [id number] Univers 00:00:00 00:00:00 Marylou HEALTH 350.1.13.10 it y of [place] 4.2.7.2.686 Sarkis as MAURICIO?BLEA [phone] Me dical CALVIN [address] MEDICAL OFFICE [facility] 2021-10-31 2021-10-31 Refill [facility]PRES[facility] 1.2.840.114 [id number] Univers 00:00:00 00:00:00 [facility] 350.1.13.10 it y of [place] 4.2.7.2.686 Sarkis as MAURICIO?BLEA [phone] Ks dicguilherme SIMPSON [address] [facility] OFFICE [facility] 2021-10-21 2021-10-21 Telephone [facility]PRES[facility] 1.2.487.242 [id number] Univers 00:00:00 00:00:00 [facility] 350.1.13.10 it y of [place] 4.2.7.2.686 Sarkis as MAURICIO?BLEA [phone] Ks dical CALVIN 0[address] [facility] OFFICE [facility] 2021-10-10 2021-10-10 Juan WaitePRESBYTERIAN HOSPITAL 1.2.199.632 [id number] Univers 00:00:00 00:00:00 Noemi S HEALTH 350.1.13.10 it y of [place] 4.2.7.2.686 Sarkis as MAURICIO?BLEA [phone] Ks dicguilherme SIMPSON [address] MEDICAL OFFICE [facility] 2021-10-07 2021-10-07 Outpatient Hany WITT [facility] [id number] Univers 12:15:00 12:15:00 JEFFERSON [facility] 2021-10-02 2021-10-02 Outpatient Hany WAITE [facility] [id number] Univers 14:45:00 15:30:28 NOEMI copeland [facility] 2021-10-022021-10-02 Office [facility] 1.2.840.114 [id number] Univers 14:45:00 15:15:00 Visit [facility] 350.1.13.10 it y of [place] 4.2.7.2.686 Sarkis as MAURICIO?BLEA [phone] Ks ashley SIMPSON [address] [facility] OFFICE [facility] 2021-10-02 2021-10-02 Outpatient R MARIANN [facility] [id number] Univers 14:45:00 14:45:00 NOEMI ity [facility] 2021-10-02 2021-10-02 Refill [facility] 1.2.840.114 [id number] Univers 00:00:00 00:00:00 [facility] 350.1.13.10 it y of [place] 4.2.7.2.686 Sarkis as PROFESSIO [phone] Ks ashley WYNN 044 [facility] ONE 2021-09-20 2021-09-20 [employer], Ang - Db [facility] 1.2.840.1 14 [id number] Univers 10:30:00 10:45:00 Visit Eduar [facility] 350.1.13.10 ity of [place] 4.2.7.2.686 Sarkis as MAURICIO?BLEA [phone] Ks ashley SIMPSON [address] [facility] OFFICE [facility] 2021-09-20 2021-09-20 Outpatient R EDUAR [facility] [id number] Univers 10:30:00 10:30:00 [facility]-19 2021-09-19 Outpatient R [facility] [id number] Univers 10:30:00 10:30:00 ity [facility] 2021-09-17 2021-09-17 Telephone [facility] 1.2.643.188 [id number] Univers 00:00:00 00:00:00 [facility] 350.1.13.10 it y of [place] 4.2.7.2.686 Sarkis as MAURICIO?BLEA [phone] Ks ashley SIMPSON 0[address] [facility] OFFICE [facility] 2021-09-17 2021-09-17 Telephone [facility] 1.2.155.374 [id number] Univers 00:00:00 00:00:00 [facility] 350.1.13.10 it y of [place] 4.2.7.2.686 Sarkis as MAURICIO?BLEA [phone] Ks ashley SIMPSON 0[address] [facility] OFFICE [facility] 2021-09-13 2021-09-13 Outpatient Hany WITT [facility] [id number] Univers 10:30:00 10:30:00 JEFFERSON iraida [facility] 2021-09-12 2021-09-12 [facility] [id number] Univers 12:00:00 12:00:00 JEFFERSON [facility] 2021-09-12 2021-09-12 Office [facility] 1.2.840.114 [id number] Univers 10:15:00 10:30:00 Visit [facility] 350.1.13.10 it y of [place] 4.2.7.2.686 Sarkis as MAURICIO?BLEA [phone] Ks ashley SIMPSON [address] [place] [address] 2021-09-12 2021-09-12 [facility]patient [facility] [id number] Univers 10:15:00 10:15:00 [facility] 2021-09-12 2021-09-12 [facility]patient [facility] [id number] Univers 10:15:00 10:15:00 [facility] 2021-09-12 2021-09-12 Telephone [facility]inaPRES[facility] .2.840.114 [id number] Univers 00:00:00 00:00:00 [facility] 350.1.13.10 it y of [place] 4.2.7.2.686 Sarkis as MAURICIO?BLEA [phone] Ks ashley SIMPSON [address] [facility] OFFICE [facility] 2021-09-10 2021-09-10 Outpatient Hany STEVENSON [facility] [id number] Univers 10:30:00 11:01:21 MARYLOU [facility] 2021-09-10 2021-09-10 Office [facility]PRES[facility] 1.2.840.114 [id number] Univers 10:30:00 11:01:21 Visit [facility] 350.1.13.10 it y of [place] 4.2.7.2.686 Sarkis as MAURICIO?BLEA [phone] Ks ashley SIMPSON [address] MEDICAL OFFICE [facility] 2021-09-10 2021-09-10 Outpatient R STEVENSON [facility] [id number] Univers 10:30:00 11:01:21 [facility] 2021-09-10 2021-09-10 Outpatient R STEVENSON [facility] [id number] Univers 10:30:00 10:30:00 [facility] 2021-09-10 2021-09-10 [facility] [id number] Univers 10:30:00 10:30:00 [facility] 2021-09-10 2021-09-10 Out[facility] [id number] Univers 10:30:00 10:30:00 [facility] 2021-09-10 2021-09-10 Outpatient Hany GAMINO [facility] [id number] Univers 10:30:00 10:30:00 [facility] 2021-09-04 2021-09-04 Viktoriya WittPRESBYTERIAN [facility] 1.2.840.114 [id number] Univers 00:00:00 00:00:00 [facility] 350.1.13.10 it y [facility] [place] 4.2.7.2.686 Sarkis as MAURICIO?BLEA [phone] Ks ashley JUAREZ 0[address] [facility] OFFICE [facility] 2021-09-03 2021-09-03 Emergency X [facility] ERT [id number] Univers 14:14:00 16:13:00 PRAVEEN iraida [facility] 2021-09-03 2021-09-03 Emergency [facility] 1.2.498.922 [id number] Univers 14:14:00 16:13:00 Praveen R [place] 350.1.13.10 i ty of [place]2.7.2.[place] [phone] [address] 2021-09-03 2021-09-03 Juan Witt [facility] 1.2.583.714 [id number] Univers 00:00:00 00:00:00 [facility] 350.1.13.10 it y of [place] 4.2.7.2.686 Sarkis as MAURICIO?BLEA [phone] [address] MEDICAL OFFICE BUILDING 2021-09-02 2021-09-02 Refill [facility] 1.2.840.114 [id number] Univers 00:00:00 00:00:00 [facility] 350.1.13.10 it y of [place] 4.2.7.2.686 Sarkis as PROFESSIO [phone] [address] OFFICE [facility] ONE 2021-09-02 2021-09-02 [facility] 1.2.840.114 [id number] Univers 00:00:00 00:00:00 [facility] 350.1.13.10 it y of [place] 4.2.7.2.686 Sarkis as MAURICIO?BLEA [phone] [address] OFFICE [facility] 2021-08-29 2021-08-29 Office [facility] 1.2.840.114 [id number] Univers 11:45:00 12:00:00 Visit [facility] 350.1.13.10 it y of [place] 4.2.7.2.686 Sarkis as MAURICIO?BLEA [phone] [address] OFFICE [facility] 2021-08-29 2021-08-29 Outpatient R EDUAR [facility] [id number] Univers 11:45:00 11:45:00 [facility] 2021-08-28 2021-08-28 [facility] MorrowPRESBYTER[facility] 1.2.840.114 [id number] Univers 00:00:00 00:00:00 Andrea HEALTH 350.1.13.10 it y of [place] 4.2.7.2.686 Sarkis as PROFESSIO [phone] [address] OFFICE [facility] ONE 2021-08-15 2021-08-15 [employer] [facility], Ang - Db [facility] 1.2.840.1 14 [id number] Univers 10:45:00 11:00:00 Visit [facility] Witt [facility] 350.1.13.10 ity of [place] 4.2.7.2.686 Sarkis as MAURICIO?BLEA [phone] [facility] [address] MEDICAL OFFICE BUILDING 2021-08-15 2021-08-15 Outpatient Hany WITT [facility] [id number] Univers 10:45:00 10:45:00 [facility] 2021-08-15 2021-08-15 Office [facility] 1.2.840.114 [id number] Univers 10:00:00 10:15:00 Visit [facility] 350.1.13.10 it y of [place] 4.2.7.2.686 Sarkis as MAURICIO?BLEA [phone] [facility] [address] MEDICAL OFFICE [facility] 2021-08-15 2021-08-15 Outpatient Hany WITT [facility] [id number] Univers 10:00:00 10:00:00 [facility] 2021-08-15 2021-08-15 [facility]patient [facility] [id number] Univers 10:00:00 10:00:00 [facility] 2021-08-15 2021-08-15 Outpatient Hany WITT [facility] [id number] Univers 10:00:00 10:00:00 [facility] 2021-08-15 2021-08-15 Orders Doctor MATHEWS 1.2.840.114 [id number] Univers 00:00:00 00:00:00 Only Unassigned, BRIAN 350.1.13.10 [facility] [place] [facility] 4.2.7.2.686 Sarkis as [phone] [address] 2021-08-12 2021-08-12 Outpatient Hany WITT [facility] [id number] Univers 10:00:00 10:00:00 [facility] 2021-08-12 2021-08-12 [facility]patient [facility] [id number] Univers 10:00:00 10:00:00 [facility] 2021-08-07 2021-08-07 Telephone [facility] 1.2.417.548 [id number] Univers 00:00:00 00:00:00 Sendlivia BRAD[place] 350.1.13.10 ity of [place] [phone] Ks dical NAL 059 [facility] 2021-08-06 2021-08-06 [facility]pr[facility] WittPRES[facility] 1.2.840.114 [id number] Univers 00:00:00 00:00:00 [facility] 350.1.13.10 it y of [place] 4.2.7.2.686 Sarkis as PROFESSIO [phone] Ks dical NAL [address] OFFICE [facility] ONE 2021-08-06 2021-08-06 [facility] 1.2.300.758 [id number] Univers 00:00:00 00:00:00 Brian BRADLEY 350.1.13.10 ity [place] [phone] Ks dical NAL 059 [facility] 2021-08-05 2021-08-05 [facility] [id number] Univers 09:54:13 23:59:00 SENDIL ity of [facility] 2021-08-05 2021-08-05 [facility] 1.2.840.114 [id number] Univers 09:54:13 23:59:00 Encounter Sendlivia BRAD[place] 350.1.13.10 ity of [place] [id number] Ks dical NAL 843 [facility] 2021-08-02 2021-08-02 Laboratory Only, Adc Test [facility] 1.2.840. 114 [id number] Univers 15:30:00 15:45:00 Only Maryam Mckeon 350.1.13.10 ity of [place].2.[place] [id number] [address] 2021-08-02 2021-08-02 Outpatient R MIKE [facility] [id number] Univers 15:30:00 15:30:00 MARYAM iradia [facility] 2021-07-22 2021-07-22 Refill [facility] 1.2.840.114 [id number] Univers 00:00:00 00:00:00 [facility] 350.1.13.10 it y of [place] 4.2.7.2.686 Sarkis as MAURICIO?BLEA [phone] Ks ashley SIMPSON [address] [place] [address] [address] [facility] 2021-07-16 2021-07-16 Telephone [facility] 1.2.590.930 [id number] Univers 00:00:00 00:00:00 [facility] 350.1.13.10 it y of [place] 4.2.7.2.686 Sarkis as MAURICIO?BLEA [phone] Ks ashley SIMPSON [address] [place] [address] [address] [facility] 2021-07-10 2021-07-10 Outpatient [facility] [id number] Univers 09:30:00 09:30:00 JEFFERSON [facility] 2021-07-09 2021-07-09 Telephone [facility] 1.2.190.707 [id number] Univers 00:00:00 00:00:00 [facility] 350.1.13.10 it y of [place] 4.2.7.2.686 Sarkis as MAURICIO?BLEA [phone] Ks ashley SIMPSON [address] [place] [address] [address] [facility] 2021-07-08 2021-07-08 Telephone [facility] 1.2.222.003 [id number] Univers 00:00:00 00:00:00 [facility] 350.1.13.10 it y of [place] 4.2.7.2.686 Sarkis as MAURICIO?BLEA [phone] Ks ashley SIMPSON [address] [place] [address] [address] [facility] 2021-07-03 2021-07-03 Office [facility] 1.2.840.114 [id number] Univers 15:09:59 15:24:59 Visit [facility] 350.1.13.10 it y of [place] 4.2.7.2.686 Sarkis as MAURICIO?BLEA [phone] [address] MEDICAL OFFICE [facility] 2021-07-03 2021-07-03 Outpatient R EDUAR [facility] [id number] Univers 15:15:00 15:15:00 JEFFERSON iraida [facility] 2021-07-03 2021-07-03 Refprabhjot WittPRESBY[facility] 1.2.840.114 [id number] Univers 00:00:00 00:00:00 [facility] 350.1.13.10 it y of [place] 4.2.7.2.686 Sarkis as PROFESSIO [phone] [address] OFFICE BUILDING ONE 2021-07-01 2021-07-01 Telephone [facility]PRES[facility] 1.2.980.562 [id number] Univers 00:00:00 00:00:00 [facility] 350.1.13.10 it y of [place] 4.2.7.2.686 Sarkis as MAURICIO?BLEA [phone] [address] OFFICE [facility] 2021-06-26 2021-06-26 [facility] 1.2.840.114 [id number] Univers 00:00:00 00:00:00 [facility] 350.1.13.10 it y of [place] 4.2.7.2.686 Sarkis as MAURICIO?BLEA [id number] [address] OFFICE [facility] 2021-06-26 2021-06-26 Telephone [facility] 1.2.828.479 [id number] Univers 00:00:00 00:00:00 [facility] 350.1.13.10 it y of [place] 4.2.7.2.686 Sarkis as MAURICIO?BLEA [phone] [address] OFFICE [facility] 2021-06-24 2021-06-24 Outpatient R EDUAR [facility] [id number] Univers 09:00:00 09:00:00 JEFFERSON copeland [facility] 2021-06-24 2021-06-24 Telephone [facility]PRES[facility] 1.2.301.216 [id number] Univers 00:00:00 00:00:00 [facility] 350.1.13.10 it y of [place] 4.2.7.2.686 Sarkis as MAURICIO?BLEA [phone] Ks ashley JUAREZ[address] OFFICE [facility] 2021-06-20 2021-06-20 Telephone Witt, [facility] 1.2.007.508 [id number] Univers 00:00:00 00:00:00 [facility] [email or web address] 350.1.13.10 it y of [place] 4.2.7.2.686 Sarkis as MAURICIO?BLEA [id number] [address] MEDICAL OFFICE [facility] 2021-06-19 2021-06-19 Outpatient R EDUAR [facility] [id number] Univers 12:00:00 12:00:00 JEFFERSON joaniraida [facility] 2021-06-19 2021-06-19 [employer] [facility], Ang - [facility] 1.2.840.1 14 [id number] Univers 10:09:29 10:24:29 Visit Eduar [facility] 350.1.13.10 ity of [place] 4.2.7.2.686 Sarkis as MAURICIO?BLEA [phone] [facility] CORRINE[address] OFFICE [facility] 2021-06-19 2021-06-19 Office [facility] 1.2.840.114 [id number] [facility] 09:41:59 10:11:59 Visit [facility] 350.1.13.10 it y of [place] 4.2.7.2.686 Sarkis as MAURICIO?BLEA [phone] Ks ashley JUAREZ[address] OFFICE [facility] 2021-06-19 2021-06-19 Outpatient R EDUAR [facility] [id number] Univers 10:00:00 10:00:00 JEFFERSON mni [facility] 2021-06-18 2021-06-18 Telephone [facility]PRES[facility] 1.2.765.608 [id number] Univers 00:00:00 00:00:00 [facility] 350.1.13.10 it y of [place] 4.2.7.2.686 Sarkis as MAURICIO?BLEA [phone] [address] OFFICE [facility] 2021-06-11 2021-06-11 Outpatient R KARTHIKEYAN [facility] [id number] Univers 14:40:00 14:40:00 DENISAAUGUSTINENOHEMI min o f [facility] 2021-06-10 2021-06-10 [facility] AntoniettaramirezbelkisPRESBYTERIAN HOSPITAL 1.2.840.114 [id number] Univers 00:00:00 00:00:00 [facility] 350.1.13.10 it y of [place] 4.2.7.2.686 Sarkis as PROFESSIO [phone] Ks [facility]Saint [facility] 044 [facility] ONE 2021-06-10 2021-06-10 Telephone [facility] 1.2.285.480 [id number] Univers 00:00:00 00:00:00 [facility] 350.1.13.10 it y of [facility] [place] 4.2.7.2.686 Sarkis as MAURICIO?BLEA [phone] Ks dicia KNEY 044 [facility] 2021-06-09 2021-06-09 Refill [facility] 1.2.840.114 [id number] Univers 00:00:00 00:00:00 [facility] 350.1.13.10 it y of [place] 4.2.7.2.686 Sarkis as PROFESSIO [phone] [address] 2021-06-04 2021-06-04 Imm/Inj Nurse, Adc Pob Immunization [facility] 1.2.840.114 [id number] Univers 14:44:49 14:45:00 Visit Severo Lara 350.1.13 .10 ity [facility] [place] [phone] Ks [facility]Saint [facility] 421 [facility] 2021-06-04 2021-06-04 Outpatient R AUDREY, [facility] [id number] Univers 14:00:00 14:35:39 SENDLIVIA copeland [facility] 2021-06-04 2021-06-04 [facility] 1.2.840.114 [id number] Univers 13:38:39 14:35:39 Visit Brian BRADLEY 350.1.13.10 ity anabel [facility] 4[place]2.7.2.[place] [phone] [place] dical NAL [address] 2021-06-04 2021-06-04 Outpatient Hany LARA [facility] [id number] Univers 14:30:00 14:30:00 SEVERO iraida [facility] 2021-06-04 2021-06-04 Outpatient Hany LARA [facility] [id number] Univers 10:40:00 10:40:00 [facility] 2021-06-04 2021-06-04 Transition GARRY Mckeon 1.2.840.114 [id number] Univers 00:00:00 00:00:00 of Care Elizabeth UMANA 350.1.13.10 i ty anabel JIMENES [place] [id number] [facility] [address] 2021-05-31 2021-06-01 Outpatient X [facility] [id number] Univers 13:04:00 12:55:00 [facility] 2021-05-31 2021-06-01 [facility] Jesus [place] [facility] 1.2.840.1 [id number] Univers 13:04:00 12:55:00 Encounter Cheryle Perera 350.1.13.10 ity anabel PUR[place]7.2.[place] [id number] [facility] [address] 2021-05-30 2021-05-30 Outpatient Hany LARA [facility] [id number] Univers 13:30:00 13:30:00 [facility] 2021-05-30 2021-05-30 [facility] 1.2.840.114 [id number] Univers 00:00:00 00:00:00 [facility] 350.1.13.10 it y of [place] 4.2.7.2.686 [place] as PROFESSIO [phone] [place] dical NAL [address] OFFICE BUILDING ONE 2021-05-29 2021-05-29 Telephone Eduar [facility] [id number] [id number] Univers 00:00:00 00:00:00 [facility] 350.1.13.10 it y of [place] 4.2.7.2.686 Sarkis as Mauricio?Blea [phone] [place] ashley simpson [address] [facility] 2021-05-28 2021-05-28 [facility]phone [facility] [id number] Univers 00:00:00 00:00:00 [facility] 350.1.13.10 it y of [place] 4.2.7.2.686 Sarkis as MAURICIO?BLEA [phone] [place]s ashley SIMPSON 044 [facility] OFFICE [facility] 2021-05-27 2021-05-27 [place] [facility] 1.2.644.139 [id number] Univers 00:00:00 00:00:00 [facility] 350.1.13.10 it y of [place] 4.2.7.2.686 Asrkis as Mauricio?Blea [phone] [place] ashley simpson [address] [facility] Office [facility] 2021-05-27 2021-05-27 [facility] 1.2.225.159 [id number] Univers 00:00:00 00:00:00 [facility] 350.1.13.10 it y of [place] 4.2.7.2.686 Sarkis as Mauricio?Blea [phone] [place]s ashley simpson [address] [facility] Office [facility] 2021-05-22 2021-05-22 [facility] 1.2.840.114 [id number] Univers 00:00:00 00:00:00 [facility] 350.1.13.10 it y of [place] 4.2.7.2.686 Sarkis as Professio [phone] [place] ashley nal [address] [facility] One 2021-05-12 2021-05-12 [facility] 1.2.840.114 [id number] Univers 00:00:00 00:00:00 [facility] 350.1.13.10 it y of [place] 4.2.7.2.686 Sarkis as Professio [phone] [place] ashley nal [address] [facility] One 2021-05-10 2021-05-10 [facility] [id number] Univers 13:30:00 14:11:31 MARYLOU ity of [facility] 2021-05-10 2021-05-10 Office [facility] 1.2.840.114 [id number] Univers 13:28:18 14:11:31 [facility] 350.1.13.10 [facility] [place] 4.2.7.2.686 Sarkis as MAURICIO?BLEA [phone] [address] OFFICE [facility] 2021-05-09 2021-05-09 Telephone Elina [facility] 1.2.840.114 [id number] Univers 00:00:00 00:00:00 Giovany Pageton 350.1.13.10 i ty of [place].2.[place] [phone] [address] 2021-05-06 2021-05-06 Orders Doctor BISI 1.2.840.114 [id number] Univers 00:00:00 00:00:00 Only Unassigned, BRIAN 350.1.13.10 ity of [place] [facility] 4.2.7.2.686 Sarkis as [phone] [address] 2021-05-01 2021-05-01 Telephone [facility] 1.2.021.751 [id number] Univers 00:00:00 00:00:00 [facility] MashMango 350.1.13.10 it y of [place] 4.2.7.2.686 Sarkis as Mauricio?Blea [phone] [address] Office [facility] 2021-04-25 2021-04-25 Office [facility] 1.2.840.114 [id number] Univers 08:59:52 09:29:52 Visit [facility] 350.1.13.10 it y of [place] 4.2.7.2.686 Sarkis as Mauricio?Blea [phone] [address] Office [facility] 2021-04-25 2021-04-25 Outpatient R EDUAR [facility] [id number] Univers 09:00:00 09:00:00 JEFFERSON [facility] 2021-04-24 2021-04-24 Urgent Ana Riddle [facility] 1.2.840.114 [id number] Univers 09:29:51 09:50:31 Care Doron Reed 350.1.13.10 ity of [place] 4.2.7.2.686 Sarkis as Mauricio?Blea [phone] Ks dicguilherme juarezey [address] 2021-04-24 2021-04-24 Outpatient R CORINNA [facility] [id number] Univers 09:40:00 09:40:00 DORON joaniraida o f [facility] 2021-04-18 2021-04-18 Orders Doctor BISI 1.2.840.114 [id number] Univers 00:00:00 00:00:00 Only Unassigned, BRIAN 350.1.13.10 ity of [place] [facility] 4.2.7.2.686 Sarkis as [phone] [address] 2021-04-15 2021-04-15 Telephone [facility] 1.2.281.378 [id number] Univers 00:00:00 00:00:00 Marylou Bradley 350.1.13.10 i ty of [place].2.[place] [phone] [place]s dicguilherme wynn 220 [facility] 2021-04-11 2021-04-11 Office [facility] 1.2.840.114 [id number] Univers 09:38:42 09:57:48 Visit [facility] 350.1.13.10 it y of [place] 4.2.7.2.686 Sarkis as Mauricio?Blea [phone] Ks dicguilherme simpson [address] Office [facility] 2021-04-11 2021-04-11 [facility]patient [facility] [id number] Univers 09:45:00 09:45:00 JEFFERSON copeland [facility] 2021-04-11 2021-04-11 Plant Security Guard 2, Adc Lab [facility] 1.2.840.114 [id number] Univers 08:12:22 08:27:22 Visit [facility] [place] 350.1.13.10 ity of [place].2.7.2.[place] Profess[place] [phone] [address] 2021-04-11 2021-04-11 [employer] 2, Adc Lab [facility] 1.2.840.114 [id number] Univers 08:12:22 08:27:22 Visit [facility] [place] 350.1.13.10 ity of [place] 4.2.7.2.[place] Profess[place] [phone] [address] 2021-04-10 2021-04-10 Outpatient [facility] [id number] Univers 12:00:00 12:00:00 JEFFERSON copeland [facility] 2021-03-31 2021-03-31 Refprabhjot [facility]PRES[facility] 1.2.840.114 [id number] Univers 00:00:00 00:00:00 [facility] 350.1.13.10 it y of [place] 4.2.7.2.686 Sarkis as Professio [phone] [address] One 2021-03-31 2021-03-31 Refill [facility] 1.2.840.114 [id number] Univers 00:00:00 00:00:00 [facility] 350.1.13.10 it y of [place] 4.2.7.2.686 Sarkis as Professio [phone] [facility] nal [address] [place] [address] One 2021-03-12 2021-03-12 Viktoriya [facility]PRES[facility] 1.2.840.114 [id number] Univers 00:00:00 00:00:00 [facility] 350.1.13.10 it y of [place] 4.2.7.2.686 S[place]is [address]io [phone] [facility] nal [address] [place] [address] One 2021-03-04 2021-03-04 Refprabhjot NevarezersPRESBYTERIAN HOSPITAL 1.2.840.114 [id number] Univers 00:00:00 00:00:00 [facility] 350.1.13.10 it y of [place] 4.2.7.2.686 S[place]is [address]io [phone] [facility] nal [address] [place] [address] One 2021-03-01 2021-03-01 Vik[facility]oriya [facility] 1.2.840.114 [id number] Univers 00:00:00 00:00:00 [facility] 350.1.13.10 it y of [place] 4.2.7.2.686 [place] as Professio [phone] [address] One 2021-02-26 2021-02-26 Juan [facility] 1.2.391.940 [id number] Univers 00:00:00 00:00:00 [facility] 350.1.13.10 it y of [place] 4.2.7.2.686 [address] [address] [phone] [facility] nal [address] [place] [address] One 2021-02-22 2021-02-22 Juan [facility] 1.2.972.964 [id number] Univers 00:00:00 00:00:00 [facility] 350.1.13.10 it y of [place] 4.2.7.2.686 [place] as Professio [phone] [address] One 2021-02-19 2021-02-19 Viktoriya WittPRESBY[facility] 1.2.840.114 [id number] Univers 00:00:00 00:00:00 [facility] 350.1.13.10 it y of [place] 4.2.7.2.686 [place] as Professio [phone] [address] One 2021-02-18 2021-02-18 [facility] 1.2.840.114 [id number] Univers 11:40:45 23:59:00 Encounter Josse Bradley 350.1.13.10 ity of [place].2.7.2.686 [place] [phone] [facility] [address] [place] [address] 2021-02-18 2021-02-18 Outpatient [facility] [id number] Univers 00:00:00 00:00:00 JOSSE copeland of [facility] 2021-02-18 2021-02-18 Orders Doctor MATHEWS 1.2.840.114 [id number] Univers 00:00:00 00:00:00 Only Unassigned, BRIAN 350.1.13.10 ity of [place] [facility] 4.2.7.2.686 Sarkis as [phone] [address] 2021-02-18 2021-02-18 Telephone [facility] 1.2.586.563 [id number] Univers 00:00:00 00:00:00 [facility] 350.1.13.10 it y of [place] 4.2.7.2.686 Sarkis as Professio [phone] Ks dical nal [address] [facility] One 2021-02-08 2021-02-08 Outpatient R ELNIA [facility] [id number] Univers 08:30:00 08:30:00 GIOVANY copeland [facility] 2021-02-04 2021-02-04 Urgent Provider, [facility] Care [facility] 1.2.840.114 [id number] Univers 12:13:45 12:31:27 Care Josse Leyva [facility] 350.1.13.10 ity of [place] 4.2.7.2.686 Sarkis as Professio [phone] [facility] 044 [facility] 2021-02-04 2021-02-04 Outpatient R GORDON [facility] [id number] Univers 12:20:00 12:20:00 JOSSE copeland [facility] 2021-02-04 2021-02-04 Refill [facility] 1.2.840.114 [id number] Univers 00:00:00 00:00:00 [facility] 350.1.13.10 it y of [place] 4.2.7.2.686 Sarkis as Professio [phone] Ks dical nal [address] [facility] One 2021-02-01 2021-02-01 Office Marylou Gamino [facility] 1.2.840.114 [id number] Univers 13:13:42 15:01:09 Visit Giovany Antoine 350.1.13.10 ity of [place].2.7.2.[place] [phone] Ks dical nal 220 [facility] 2021-02-01 2021-02-01 Outpatient Hany ANTOINE [facility] [id number] Univers 13:30:00 13:30:00 GIOVANY copeland [facility] 2021-02-01 2021-02-01 Outpatient Hany ANTOINE [facility] [id number] Univers 13:30:00 13:30:00 GIOVANY copeland [facility] 2021-01-24 2021-01-24 [facility] 1.2.840.114 [id number] Univers 00:00:00 00:00:00 [facility] 350.1.13.10 it y of [place] 4.2.7.2.686 Sarkis as Professio [phone] Ks dical nal 044 [facility] One 2021-01-16 2021-01-16 [facility] WittPRES[facility] 1.2.840.114 [id number] Univers 00:00:00 00:00:00 [facility] 350.1.13.10 it y of [place] 4.2.7.2.686 Sarkis as Professio [phone] Ks dical nal 044 [facility] One 2021-01-10 2021-01-10 Telephone [facility]PRES[facility] 1.2.821.844 [id number] Univers 00:00:00 00:00:00 [facility] 350.1.13.10 ity of [place] 4.2.7.2.686 Sarkis as Professio [phone] Ks dical nal 044 [facility] One 2021-01-09 2021-01-09 Urgent Romi Dominguez [facility] 1.2.840 .114 [id number] Univers 15:52:45 16:12:45 Shea Leyva Josse [facility] 350.1.13.10 ity of [place] 4.2.7.2.686 Sarkis as Professio [phone] Ks dical nal 044 [facility] One 2021-01-09 2021-01-09 Outpatient Hany LEYVA [facility] [id number] Univers 16:00:00 16:00:00 JOSSE francoiraida [facility] 2021-01-07 2021-01-07 Viktoriya WittPRES[facility] 1.2.840.114 [id number] Univers 00:00:00 00:00:00 [facility] 350.1.13.10 it y of [place] 4.2.7.2.686 Sarkis as Professio [phone] [address] Office [facility] One 2021-01-07 2021-01-07 Refill [facility] 1.2.840.114 [id number] Univers 00:00:00 00:00:00 [facility] 350.1.13.10 it y of [place] 4.2.7.2.686 S[place]is [address] Professio [phone] [facility] nal [address] [place] [address] Office [facility] One 2021-01-07 2021-01-07 Telephone [facility] 1.2.260.687 [id number] Univers 00:00:00 00:00:00 [facility] 350.1.13.10 it y of [place] 4.2.7.2.686 [place] [address] Professio [phone] [facility] nal [address] [place] [address] Office [facility] One 2021-01-07 2021-01-07 Telephone [facility] 1.2.979.965 [id number] Univers 00:00:00 00:00:00 [facility] 350.1.13.10 it y of [place] 4.2.7.2.686 S[place]is [address] Professio [phone] [facility] nal [address] [place] [address] Office [facility] One 2021-01-03 2021-01-03 Outpatient R EDUAR [facility] [id number] Univers 12:15:00 12:15:00 JEFFERSON ity of [facility] 2021-01-03 2021-01-03 Office [facility] 1.2.840.114 [id number] Univers 11:45:12 12:00:12 Visit [facility] 350.1.13.10 it y of [place] 4.2.7.2.686 S[place]is as Professio [phone] [facility] nal [address] [place] [address] Office [facility] One 2021-01-02 2021-01-02 Refill [facility] 1.2.840.114 [id number] Univers 00:00:00 00:00:00 [facility] 350.1.13.10 it y of [place] 4.2.7.2.686 Sarkis as Professio [phone] [address] One 2021-01-02 2021-01-02 Telephone Eduar [facility] 1.2.050.438 [id number] Univers 00:00:00 00:00:00 [facility] 350.1.13.10 it y of [place] 4.2.7.2.686 Sarkis as Professio [phone] [address] One 2021-01-01 2021-01-01 Refprabhjot WittPRES[facility] 1.2.840.114 [id number] Univers 00:00:00 00:00:00 [facility] 350.1.13.10 it y of [place] 4.2.7.2.686 [place] as Professio [phone] [address] One 2021-01-01 2021-01-01 Orders Doctor BISI 1.2.840.114 [id number] Univers 00:00:00 00:00:00 Only Unassigned, BRIAN 350.1.13.10 ity of [place] [facility] 4.2.7.2.686 Sarkis as [phone] [facility] [address] 2020-12-24 2020-12-24 Nurse BISI [place] 1.2.840.114 [id number] Univers 00:00:00 00:00:00 Triage Araceli T BRIAN 350.1.13.10 it y of HOSPITAL 4.2.7.2.686 Sarkis as [phone] [facility] [address] 2020-12-07 2020-12-07 Refprabhjot WittPRES[facility] 1.2.840.114 [id number] Univers 00:00:00 00:00:00 [facility] 350.1.13.10 it y of [place] 4.2.7.2.686 [place] as Professio [phone] [address] One 2020-12-05 2020-12-05 Telephone [facility] 1.2.851.560 [id number] Univers 00:00:00 00:00:00 [facility] 350.1.13.10 it y of [place] 4.2.7.2.686 [place] as Professio [phone] [address] Office [facility] One 2020-12-03 2020-12-03 [facility]PRES[facility] 1.2.840.114 [id number] Univers 00:00:00 00:00:00 [facility] 350.1.13.10 it y of [place] 4.2.7.2.686 [place] as Professio [phone] [address] One 2020-12-03 2020-12-03 [facility]PRES[facility] 1.2.840.114 [id number] Univers 00:00:00 00:00:00 [facility] 350.1.13.10 it y of [place] 4.2.7.2.686 [place] as Professio [phone] [address] One 2020-11-27 2020-11-27 Outpatient H[facility] [id number] Univers 09:21:28 23:59:00 JEFFERSON ity of [facility] 2020-11-27 2020-11-27 [facility] 1.2.840.114 [id number] Univers 09:21:28 23:59:00 Encounter Jefferson Bradley 350.1.13.10 ity of [place] 4.2.7.2.686 [facility] [phone] [facility] [address] 2020-11-27 2020-11-27 Outpatient Hany [facility] [id number] Univers 00:00:00 00:00:00 JEFFERSON ity of [facility] 2020-11-27 2020-11-27 Orders Doctor MATHEWS 1.2.840.114 [id number] Univers 00:00:00 00:00:00 Only Unassigned, BRIAN 350.1.13.10 ity of [place] [facility] 4.2.7.2.686 Sarkis as [phone] [facility] [address] 2020-11-21 2020-11-21 [facility] 1.2.840.114 [id number] Univers 00:00:00 00:00:00 [facility] 350.1.13.10 it y of [place] 4.2.7.2.686 Sarkis as Professio [phone] Ks dical nal [address] Building One 2020-11-14 2020-11-14 [facility] 1.2.843.620 [id number] Univers 00:00:00 00:00:00 [facility] 350.1.13.10 it y of [place] 4.2.7.2.686 Sarkis as Professio [phone] Ks dical nal [address] [facility] One 2020-11-13 2020-11-13 Outpatient R [facility] [id number] Univers 13:17:58 23:59:00 JEFFERSON copeland [facility] 2020-11-13 2020-11-13 [facility] 1.2.840.114 [id number] Univers 13:17:58 23:59:00 Encounter Jefferson Bradley 350.1.13.10 ity of [place] 4.2.7.2.686 [facility] [phone] [facility] [address] 2020-11-13 2020-11-13 [facility] 1.2.840.114 [id number] Univers 13:17:10 23:59:00 Encounter Jefferson Bradley 350.1.13.10 ity of [place] 4.2.7.2.686 [facility] [phone] [facility] [address] 2020-11-13 2020-11-13 Outpatient R [facility] [id number] Univers 00:00:00 00:00:00 JEFFERSON ity [facility] 2020-11-13 2020-11-13 Orders Doctor BISI 1.2.840.114 [id number] Univers 00:00:00 00:00:00 Only Unassigned, BRIAN 350.1.13.10 ity of [place] [facility] 4.2.7.2.686 Sarkis as [phone] [facility] [address] 2020-11-06 2020-11-06 [facility] 1.2.840.114 [id number] Univers 00:00:00 00:00:00 [facility] 350.1.13.10 it y of [place] 4.2.7.2.686 [place] as Professio [phone] [address] Office Building One 2020-10-24 2020-10-24 Office Eduar [facility] 1.2.840.114 [id number] Univers 13:10:01 13:25:01 Visit [facility] 350.1.13.10 it y of [place] 4.2.7.2.686 [place] as Professio [phone] [address] Office Building One 2020-10-24 2020-10-24 Outpatient R EDUAR [facility] [id number] Univers 13:15:00 13:15:00 JEFFERSON ity of [facility] 2020-10-24 2020-10-24 Orders Doctor BISI 1.2.840.114 [id number] Univers 00:00:00 00:00:00 Only Unassigned, BRIAN 350.1.13.10 ity of [place] [facility] 4.2.7.2.686 Sarkis as [phone] [address] 2020-10-09 2020-10-09 Refill [facility] 1.2.840.114 [id number] Univers 00:00:00 00:00:00 [facility] 350.1.13.10 it y of [place] 4.2.7.2.686 S[place]is as Professio [phone] [address] Office [facility] One 2020-10-09 2020-10-09 Refill [facility] 1.2.840.114 [id number] Univers 00:00:00 00:00:00 [facility] 350.1.13.10 it y of [place] 4.2.7.2.686 [place] as Professio [phone] [address] Office Building One 2020-10-03 2020-10-03 Office [facility] 1.2.840.114 [id number] Univers 12:26:09 12:41:09 Visit [facility] 350.1.13.10 it y of [place] 4.2.7.2.686 Sarkis as Professio [phone] Ks dical nal [address] Building One 2020-10-03 2020-10-03 Outpatient R EDUAR [facility] [id number] Univers 12:15:00 12:15:00 JEFFERSON itiraida [facility] 2020-09-28 2020-09-28 Office [facility] 1.2.585.427 [id number] Univers 13:21:27 14:42:31 Visit Giovany Bradley 350.1.13.10 i ty of [place] 4.2.7.2.686 [place] [facility] [phone] Ks dical nal 220 [facility] 2020-09-28 2020-09-28 Outpatient R ELINA [facility] [id number] Univers 13:30:00 13:30:00 GIOVANY copeland [facility] 2020-09-24 2020-09-24 Refprabhjot WittPRES[facility] 1.2.840.114 [id number] Univers 00:00:00 00:00:00 [facility] 350.1.13.10 it y of [place] 4.2.7.2.686 Sarkis as Professio [phone] [facility] 044 [facility] One 2020-09-20 2020-09-20 Emergency X [facility] ERT [id number] Univers 11:53:00 12:28:00 [facility] 2020-09-20 2020-09-20 Emergency [facility]PRES[facility] 1.2.840.114 [id number] Univers 11:53:00 12:28:00 Jayashree Bradley 350.1.13.10 ity of [place] 4.2.7.2.686 [place] [phone] [facility] [address] 2020-09-19 2020-09-19 Refprabhjot WittPRESBY[facility] 1.2.840.114 [id number] Univers 00:00:00 00:00:00 [facility] 350.1.13.10 it y of [place] 4.2.7.2.686 Sarkis as Professio [phone] Ks dical nal 044 [facility] One 2020-09-14 2020-09-14 [facility] 1.2.840.114 [id number] Univers 00:00:00 00:00:00 [facility] 350.1.13.10 it y of [place] 4.2.7.2.686 Sarkis as Professio [phone] Ks dical nal 044 [facility] One 2020-09-13 2020-09-13 [facility]PRES[facility] 1.2.840.114 [id number] Univers 00:00:00 00:00:00 [facility] 350.1.13.10 it y of [place] 4.2.7.2.686 Sarkis as Professio [phone] Ks dical nal 044 [facility] One 2020-09-06 2020-09-06 Outpatient R DOMINGO [facility] [id number] Univers 13:30:00 13:40:37 [facility] 2020-09-06 2020-09-06 Outpatient R DOMINGO [facility] [id number] Univers 13:30:00 13:30:00 [facility] 2020-08-31 2020-08-31 Office [facility] 1.2.840.114 [id number] Univers 10:35:13 11:37:50 Visit Bisi Bradley 350.1.13.10 i ty of [place].2.7.2.[place] [phone] [place]s dical nal 188 [facility] 2020-08-31 2020-08-31 Outpatient R JANAE [facility] [id number] Univers 11:00:00 11:00:00 BISI [facility] 2020-08-29 2020-08-29 Telephone [facility] 1.2.840.114 [id number] Univers 00:00:00 00:00:00 Giovany H Mirna 350.1.13.10 i ty of [place]2.7.2.[place] Profess[place] [phone] Ks dical nal 220 [facility] 2020-08-27 2020-08-27 [facility]PRES[facility] 1.2.840.114 [id number] Univers 00:00:00 00:00:00 [facility] 350.1.13.10 it y of [place] 4.2.7.2.686 Sarkis as Professio [phone] [facility] [address] Office Building One 2020-08-21 2020-08-21 Nurse Guy MATHEWS 1.2.840.114 [id number] Univers 00:00:00 00:00:00 Triage BRIAN Mcclellan 350.1.13.10 ity of [facility] 4.2.7.2.686 Sarkis as [phone] [facility] [address] 2020-08-17 2020-08-17 Hospital [facility] 1.2.840.114 [id number] Univers 07:37:00 11:47:00 Encounter Bisi Bradley 350.1.13.10 ity of [place] 4.2.7.2.686 [facility] Surgical [phone] [facility] [address] 2020-08-16 2020-08-16 Laboratory Only, Adc Test [facility] 1.2.840. 114 [id number] Univers 14:00:33 14:15:33 Only Bisi Cardoso 350.1.13 .10 ity of [place] 4.2.7.2.686 [facility] [phone] [facility] [address] 2020-08-16 2020-08-16 Outpatient R JANAE [facility] [id number] Univers 14:00:00 14:00:00 BISI copeland of [facility] 2020-08-16 2020-08-16 Orders Doctor BISI 1.2.840.114 [id number] Univers 00:00:00 00:00:00 Only Unassigned, BRIAN 350.1.13.10 [facility] 4.2.7.2.686 Sarkis as [phone] [facility] [address] 2020-08-14 2020-08-14 Telephone Elina [facility] 1.2.840.114 [id number] Univers 00:00:00 00:00:00 Giovany Taylor MULTISPEC 350.1.13.10 ity of [place] [id number] [facility] [phone] [facility] AND POWERS [address] [facility] 2020-08-09 2020-08-09 Outpatient Hany DMOINGO [facility] [id number] Univers 15:20:00 15:20:00 JORGE LUIS itiraida [facility] 2020-08-09 2020-08-09 Outpatient Hany DOMINGO [facility] [id number] Univers 15:20:00 15:09:53 JORGE LUIS itiraida [facility] 2020-08-08 2020-08-08 [facility] [id number] Univers 00:00:00 00:00:00 [facility] [id number] it y of [place] [id number] Sarkis as Professio [phone] [place] [address] One 2020-08-06 2020-08-06 [facility] 1.2.840.114 [id number] Univers 00:00:00 00:00:00 Jefferson Evans [id number] it y of [place] [id number] Sarkis as Professio [phone] [place] dical nal 044 [facility] One 2020-08-06 2020-08-06 [facility]phone [facility] [id number] Univers 00:00:00 00:00:00 Jefferson Bradley [id number] i ty [id number] [phone] [place] dical nal 044 [facility] 2020-07-30 2020-07-30 Plant [employer] Guard 2, Adc Lab [facility] 1.2.840.114 [id number] Univers 10:00:24 10:15:24 Visit Jefferson Witt [id number] ity [id number] [phone] [place] d[place] nal 353 [facility] 2020-07-30 2020-07-30 Outpatient Hany EDUAR [facility] [id number] Univers 10:15:00 10:15:00 JEFFERSON copeland [facility] 2020-07-30 2020-07-30 Laboratory Pc, Adc Echo Room 1 - [facility] 1 .2.840.114 [id number] Univers 08:18:05 09:18:05 Only Robbie Coronado 350.1.13.10 ity [place] [phone] [address] 2020-07-30 2020-07-30 Nurse Visit, Adc Nurse [facility] 1.2.840.1 [id number] Univers 08:17:07 08:47:07 Visit Robbie Coronado 350.1.13.10 ity of [place] [phone] [address] 2020-07-30 2020-07-30 Outpatient R [facility] [id number] Univers 08:30:00 08:30:[facility] 2020-07-30 [facility]abhjot [facility] 1.2.840.114 [id number] Univers 00:00:00 00:00:00 [facility] 350.1.13.10 it y of [place] 4.2.7.2.686 [place] Professio [phone] [address] 2020-07-24 2020-07-24 Telephone [facility] 1.2.573.150 [id number] Univers 00:00:00 00:00:00 [facility] 350.1.13.10 it y of [place] 4.2.7.2.686 [place] Professio [phone] [address] 2020-07-23 2020-07-23 Refprabhjot WittPRESBY[facility] 1.2.840.114 [id number] Univers 00:00:00 00:00:00 [facility] 350.1.13.10 it y of [place] 4.2.7.2.686 [place] Professio [phone] [address] One 2020-07-20 2020-07-20 Outpatient R JANAE [facility] [id number] Univers 09:45:00 10:34:29 BISI ity [facility] 2020-07-20 2020-07-20 Office [facility] 1.2.840.114 [id number] Univers 09:34:36 10:34:29 Visit Bisi Pageton 350.1.13.10 i ty of [place] [phone] [facility] 188 [facility] 2020-07-20 2020-07-20 [facility] [id number] Univers 09:45:00 09:45:00 BISI copeland [facility] 2020-07-20 2020-07-20 Prep For [facility] 1.2.840.114 [id number] Univers 00:00:00 00:00:00 Surgery Sandy Bradley 350.1.13.10 it[place] [phone] [facility] 204 [facility] 2020-07-19 2020-07-19 Telephone [facility] 1.2.970.874 [id number] Univers 00:00:00 00:00:00 Sandy Ulices Bradley 350.1.13.10 it[place] [phone] [place] dicsaint [facility] 204 [facility] 2020-07-11 2020-07-11 Outpatient R PRAVEENA [facility] [id number] Univers 14:15:00 15:24:26 SANDY copeland [facility] 2020-07-11 2020-07-11 Office [facility] 1.2.840.114 [id number] Univers 14:07:33 15:24:26 Visit Sandy Ulices Bradley 350.1.13.10 ity of [place] [phone] [place] dicsaint [facility] 204 [facility] 2020-07-11 2020-07-11 [employer] Lab, Adc Fam Pob I [facility] 1.2. 840.114 [id number] Univers 12:22:19 12:42:19 Visit [facility] 350.1.13.10 ity of [place] 4.2.7.2.686 [place] [phone] [address] 2020-07-11 2020-07-11 Office Eduar [facility] 1.2.840.114 [id number] Univers 11:51:24 12:15:39 Visit [facility] 350.1.13.10 it y of [place] 4.2.7.2.686 [place] [phone] [address] 2020-07-11 2020-07-11 Outpatient R EDUAR [facility] [id number] Univers 12:00:00 12:00:00 JEFFERSON iraida [facility] 2020-07-04 2020-07-04 Telephone [facility] 1.2.664.093 [id number] Univers 00:00:00 00:00:00 [place] MashMango 350.1.13.10 it y of [place] 4.2.7.2.686 [place] Professio [phone] [address] 2020-06-27 2020-06-27 Hospital [facility] 1.2.840.114 [id number] Univers 13:09:36 23:59:00 Encounter Rosette Pageton 350.1.13.10 ity of [place] 4.2.7.2.686 [place] [facility] [phone] [address] 2020-06-27 2020-06-27 [employer] [facility], [facility] Fam Pob I [facility] 1.2. 840.114 [id number] Univers 11:31:39 11:51:39 Visit Rosette Contreras [facility] 350.1.13.10 ity of [place] 4.2.7.2.686 [place] [phone] [address] 2020-06-27 2020-06-27 Outpatient [facility] [id number] Univers 11:40:00 11:43:32 ROSETTE copeland [facility] 2020-06-27 2020-06-27 Urgent Provider, [facility] 1.2.840.114 [id number] Univers 10:46:55 11:43:03 Care Josse Leyva 350.1.13.10 ity of [place] 4.2.7.2.686 [place] Professio [phone] Ks ashley nal [facility] Office Building One 2020-06-27 2020-06-27 Servando LEYVA [facility] [id number] Univers 11:00:00 11:00:00 JOSSE copeland of [facility] 2020-06-26 2020-06-26 Juan WittPRESBYTER[facility] 1.2.361.614 [id number] Univers 00:00:00 00:00:00 [facility] 350.1.13.10 it y of [place] 4.2.7.2.686 [place] Professio [phone] [facility] nal [address] [place] [address] Office Building One 2020-06-22 2020-06-22 Refprabhjot WittPRESBYTERIAN [facility] 1.2.840.114 [id number] Univers 00:00:00 00:00:00 [facility] 350.1.13.10 it y of [place] 4.2.7.2.686 [place] [address]io [phone] [facility] nal [address] [place] [address] Office Building One 2020-06-21 2020-06-21 Juan WittPRESBYTERIAN [facility] 1.2.568.319 [id number] Univers 00:00:00 00:00:00 [facility] 350.1.13.10 it y of [place] 4.2.7.2.686 [place] [address] [phone] [facility] nal [address] [place] [address] Office Building One 2020-06-19 2020-06-19 Viktoriya WittPRESBYTERIAN [facility] 1.2.840.114 [id number] Univers 00:00:00 00:00:00 [facility] 350.1.13.10 it y of [place] 4.2.7.2.686 [place] [address]io [phone] [facility] nal [address] [place] [address] Office Building One 2020-06-19 2020-06-19 Viktoriya WittPRESBYTERIAN [facility] 1.2.840.114 [id number] Univers 00:00:00 00:00:00 [facility] 350.1.13.10 it y of [place] 4.2.7.2.686 [place] [address] [phone] [facility] nal [address] [place] [address] Office Building One 2020-06-13 2020-06-13 Refprabhjot NevarezersPRESBYTERIAN HOSPITAL 1.2.840.114 [id number] Univers 00:00:00 00:00:00 [facility] 350.1.13.10 it y of [place] 4.2.7.2.686 [place] [phone] [address] 2020-06-04 2020-06-04 Telephone [facility]inaPRESBYTERIAN [facility] 1.2.840.114 [id number] Univers 00:00:00 00:00:00 Giovany Claudia Mirna 350.1.13.10 i ty of [place] [phone] [address] 2020-06-01 2020-06-01 Telephone [facility]PRES[facility] 1.2.421.118 [id number] Univers 00:00:00 00:00:00 [facility] 350.1.13.10 it y of [place] 4.2.7.2.686 [place] [phone] [address] 2020-05-29 2020-05-29 Outpatient [facility] [id number] Univers 09:00:00 09:00:00 JEFFERSON copeland [facility] 2020-05-29 2020-05-29 Telemedici EduarPRES[facility]TERIAN [facility] 1.2.840.114 [id number] Univers 06:53:27 07:08:27 ne Visit [facility] 350.1.13.10 i ty of [place] 4.2.7.2.686 [place] [phone] [address] 2020-05-29 2020-05-29 Refill [facility]inaPRESBYTERIAN [facility] 1.2.623.577 [id number] Univers 00:00:00 00:00:00 Giovany Claudia Mirna 350.1.13.10 i ty of [place] [phone] [address] 2020-05-21 2020-05-21 Telephone [facility]PRES[facility] 1.2.828.402 [id number] Univers 00:00:00 00:00:00 [facility] 350.1.13.10 it y of [place] 4.2.7.2.686 [place] [phone] Ks dical nal 044 [facility] 2020-05-16 2020-05-16 Refprabhjot WittPRESBYTERIAN [facility] 1.2.840.114 [id number] Univers 00:00:00 00:00:00 [facility] 350.1.13.10 it y of [place] 4.2.7.2.686 [place] Professio [phone] [facility] 044 [facility] One 2020-05-14 2020-05-14 Refill [facility] 1.2.840.114 [id number] Univers 00:00:00 00:00:00 [facility] 350.1.13.10 it y of [place] 4.2.7.2.686 [place] Professio [phone] [facility] [address] [place] [address] 2020-05-11 2020-05-11 Telephone WittPRESBYTERIAN [facility] 1.2.872.102 [id number] Univers 00:00:00 00:00:00 [facility] 350.1.13.10 it y of [place] 4.2.7.2.686 [place] Professio [phone] [facility] nal [address] [place] [address] 2020-05-11 2020-05-11 Telephone [facility]inaPRESBYTERIAN [facility] 12.840.114 [id number] Univers 00:00:00 00:00:00 Giovany Taylor [place] 350.1.13.10 i ty of [place] [phone] [facility] 220 [facility] 2020-05-08 2020-05-08 Outpatient [facility] [id number] Univers 08:45:00 08:45:00 JEFFERSON copeland of [facility] 2020-05-08 2020-05-08 Telemedici WittPRESBYTERIAN [facility] 12.840.114 [id number] Univers 07:57:55 08:12:55 ne Visit [facility] 350.1.13.10 i ty of [place] 4.2.7.2.686 [place] Professio [phone] Me dic[address] One 2020-05-08 2020-05-08 Juan WittPRESBYTERIAN [facility] 1.2.113.479 [id number] Univers 00:00:00 00:00:00 [facility] 350.1.13.10 it y of [place] 4.2.7.2.686 [place] Professio [phone] [address] One 2020-05-08 2020-05-08 Juan WittPRESBYTERIAN [facility] 1.2.026.805 [id number] Univers 00:00:00 00:00:00 Jefferson Bradley 350.1.13.10 i ty of [place] [phone] [address] 2020-05-02 2020-05-02 Juan WittPRESBYTERIAN [facility] 1.2.939.871 [id number] Univers 00:00:00 00:00:00 [facility] 350.1.13.10 it y of [place] 4.2.7.2.686 [place] Professio [phone] [address] One 2020-04-24 2020-04-24 Outpatient [facility] [id number] Univers 09:15:00 09:15:00 JEFFERSON copeland [facility] 2020-04-24 2020-04-24 Telemedici EduarPRES[facility]TER[facility] 1.2.840.114 [id number] Univers 06:51:14 07:06:14 ne Visit [facility] 350.1.13.10 i ty of [place] 4.2.7.2.686 [place] Professio [phone] [address] One 2020-04-18 2020-04-18 Refprabhjot WittPRESBYTERIAN [facility] 1.2.840.114 [id number] Univers 00:00:00 00:00:00 [facility] 350.1.13.10 it y of [place] 4.2.7.2.686 [place] Professio [phone] [address] One 2020-04-13 2020-04-13 Viktoriya AntoinePRESBYTERIAN HOSPITAL 1.2.979.704 [id number] Univers 00:00:00 00:00:00 Giovany Pageton 350.1.13.10 i ty of [place] [phone] Ks dical nal 220 [facility] 2020-04-11 2020-04-11 Outpatient [facility] [id number] Univers 13:00:00 13:00:00 JEFFERSON copeland [facility] 2020-04-11 2020-04-11 Office [facility] 1.2.840.114 [id number] Univers 12:43:12 12:58:12 Visit [facility] 350.1.13.10 it y of [place] 4.2.7.2.686 [place] Professio [phone] Ks dical nal 044 [facility] 2020-04-08 2020-04-08 Refprabhjot EduarPRESBYTERIAN [facility] 1.2.840.114 [id number] Univers 00:00:00 00:00:00 [facility] 350.1.13.10 it y of [place] 4.2.7.2.686 [place] Professio [phone] Ks dical nal 044 [facility] 2020-04-04 2020-04-04 Office LovePRESBYTERIAN [facility] 1.2.365.062 [id number] Univers 13:45:29 14:43:26 Visit [facility] 350.1.13.10 it y of Surgical 4.2.7.2.686 [place] Specialti [phone] Ks dical es 198 [facility] 2020-04-04 2020-04-04 Outpatient [facility] [id number] Univers 14:00:00 14:00:00 DILAN copeland [facility] 2020-04-02 2020-04-02 Refprabhjot WittPRESBYTERIAN [facility] 1.2.840.114 [id number] Univers 00:00:00 00:00:00 [facility] 350.1.13.10 it y of [place] 4.2.7.2.686 [place] Professio [phone] Ks dical nal 044 [facility] One 2020-04-01 2020-04-01 Nurse Sunny MATHEWS 1.2.840.114 [id number] Univers 00:00:00 00:00:00 Triage d, Alana Prabhakar BRIAN 350.1.13.10 ity of HOSPITAL 4.2.7.2.686 [place] as [phone] [facility] [address] 2020-04-01 2020-04-01 Telephone Ketty Sanders 1.2.840.114 [id number] Univers 00:00:00 00:00:00 Souviki Brian 350.1.13.10 it y of Hospital 4.2.7.2.686 [place] as [phone] [facility] [address] 2020-03-28 2020-03-28 Outpatient [facility] [id number] Univers 14:15:00 14:15:00 DILAN copeland [facility] 2020-03-24 2020-03-24 Refprabhjot WittPRESBYTERIAN [facility] 1.2.840.114 [id number] Univers 00:00:00 00:00:00 [facility] 350.1.13.10 it y of [place] 4.2.7.2.686 [place] Professio [phone] Ks dical nal [address] Office Building One 2020-03-23 2020-03-23 Office AntoinePRESBYTERIAN [facility] 1.2.447.245 [id number] Univers 13:17:14 14:30:58 Visit Giovany Claudia Mirna 350.1.13.10 i ty of [place].2.[place] [phone] [place]s dical nal 220 [facility] 2020-03-23 2020-03-23 Outpatient R [facility] [id number] Univers 13:30:00 13:30:00 GIOVANY copeland [facility] 2020-03-23 2020-03-23 Orders Doctor MATHEWS 1.2.840.114 [id number] Univers 00:00:00 00:00:00 Only Unassigned, BRIAN 350.1.13.10 ity of [place] [facility] 4.2.7.2.686 [place] as [phone] [facility] [address] 2020-03-20 2020-03-20 Outpatient R [facility] [id number] [facility] Univers 14:45:00 14:45:00 NOEMI francoy of [facility] 2020-03-19 2020-03-19 Telephone [facility]PRES[facility] 1.2.840.114 [id number] Univers 00:00:00 00:00:00 Giovany Taylor Mirna 350.1.13.10 i ty of [place] [phone] [place] dicsaint [facility]phons[facility] eagle 220 [facility] 2020-03-19 2020-03-19 [facility] 1.2.840.114 [id number] Univers 00:00:00 00:00:00 [facility] 350.1.13.10 it y of [place] 4.2.7.2.686 [place] Professio [phone] [place]s dical nal 044 [facility] 2020-03-16 2020-03-16 [facility] hospital [facility]inaPRESBY[facility] 1.2.164.615 [id number] Univers 00:00:00 00:00:00 Giovany Bradley 350.1.13.10 i ty of [place]2.7.2.[place] [phone] [place]s dical nal 220 [facility] 2020-03-15 2020-03-15 Telephone [facility] 1.2.190.237 [id number] Univers 00:00:00 00:00:00 [facility] 350.1.13.10 it y of [place] 4.2.7.2.686 [place] Professio [phone] [facility] 044 [facility] 2020-03-13 2020-03-13 Outpatient R GORDON [facility] [id number] Univers 10:25:12 23:59:00 JOSSE ity of [facility] 2020-03-13 2020-03-13 [facility] Gordon [facility] 1.2.840.114 [id number] Univers 10:25:12 23:59:00 Encounter Josse Bradley 350.1.13.10 ity of [place].2.686 [place] [phone] [facility] [address] [place] [address] 2020-03-13 2020-03-13 Urgent Provider, [facility] 1.2.840.114 [id number] Univers 09:37:13 09:57:13 [facility] 350.1.13.10 ity of [place] 4.2.7.2.686 [place] Professio [phone] [address] One 2020-03-13 2020-03-13 Outpatient R [facility] [id number] Univers 09:40:00 09:40:00 ity of [facility] 2020-03-09 2020-03-09 Telephone [facility] 1.2.360.387 [id number] Univers 00:00:00 00:00:00 Jefferson Pageton 350.1.13.10 i ty of [place].2.[place].2.[place] [phone] [address] 2020-03-07 2020-03-07 [facility] [place] 1.2.840.114 [id number] Univers 00:00:00 00:00:00 Giovany Bradley 350.1.13.10 i ty [place].2.[place] [phone] [address] 2020-03-03 2020-03-03 [facility] 1.2.840.114 [id number] Univers 00:00:00 00:00:00 [facility] 350.1.13.10 it y of [place] 4.2.7.2.686 [place] Professio [phone] [address] 2020-03-02 2020-03-02 Telephone [facility] [place] 1.2.840.114 [id number] Univers 00:00:00 00:00:00 Giovany Bradley 350.1.13.10 i ty [place] [phone] [address] 2020-02-29 2020-02-29 [facility] WittPRES[facility] 1.2.840.114 [id number] Univers 00:00:00 00:00:00 [facility] 350.1.13.10 it y of [place] 4.2.7.2.686 [place] Professio [phone] [facility] 044 [facility] 2020-02-28 2020-02-28 [facility] 1.2.840.114 [id number] Univers 00:00:00 00:00:00 [facility] 350.1.13.10 it y of [place] 4.2.7.2.686 [place] Professio [phone] [address] 2020-02-28 2020-02-28 Telephone [facility] 1.2.840.114 [id number] Univers 00:00:00 00:00:00 Giovany H [place] 350.1.13.10 i ty of [place]2.[place].2.[place] [phone] [facility] 220 [facility] 2020-02-27 2020-02-27 [facility] 1.2.840.114 [id number] Univers 00:00:00 00:00:00 [facility] 350.1.13.10 it y of [place] 4.2.7.2.686 [place] Professio [phone] [address] 2020-02-23 2020-02-23 Telephone [facility] 1.2.840.114 [id number] Univers 00:00:00 00:00:00 Giovany Pageton 350.1.13.10 i ty of [place] 4.2.7.2.[place] [phone] [address] 2020-02-21 2020-02-21 Telephone [facility] 1.2.840.114 [id number] Univers 00:00:00 00:00:00 Giovany H [place] 350.1.13.10 i ty of [place] 4.2.7.2.[place] [phone] [address] 2020-02-20 2020-02-20 [facility] 1.2.840.114 [id number] Univers 00:00:00 00:00:00 [facility] 350.1.13.10 it y of [place] 4.2.7.2.686 [place] Professio [phone] Ks dical nal 044 [facility] 2020-02-14 2020-02-14 Telephone [facility] 1.2.139.322 [id number] Univers 00:00:00 00:00:00 Jefferson Bradley 350.1.13.10 i ty of [place].2.7.2.[place] [phone] Ks dical nal 044 [facility] 2020-02-10 2020-02-10 [facility] 1.2.840.114 [id number] Univers 00:00:00 00:00:00 [facility] 350.1.13.10 it y of [place] 4.2.7.2.686 [place] Professio [phone] Ks dical nal 044 [facility] 2020-02-08 2020-02-08 [facility] 1.2.840.114 [id number] Univers 00:00:00 00:00:00 Jefferson Mirna 350.1.13.10 i ty of [place] 4.2.7.2.[place] [phone] [place]s dical nal 044 [facility] 2020-02-02 2020-02-02 [facility] 1.2.840.114 [id number] Univers 00:00:00 00:00:00 [facility] 350.1.13.10 it y of [place] 4.2.7.2.686 [place] Professio [phone] Ks dical nal [address] [place] [address] 2020-02-02 2020-02-02 Telephone [facility] 1.2.840.114 [id number] Univers 00:00:00 00:00:00 Giovany Bradley 350.1.13.10 i ty of [place]2.[place].2.[place] [phone] [place] dical nal 220 [facility] 2020-01-31 2020-01-31 [facility] Hospitalprabhjot WittPRESBY[facility] 1.2.840.114 [id number] Univers 00:00:00 00:00:00 [facility] 350.1.13.10 it y of [place] 4.2.7.2.686 [place] Professio [phone] [place] dical nal [address] [place] Office [facility] 2020-01-26 2020-01-26 Refill [facility] [place] 1.2.073.932 [id number] Univers 00:00:00 00:00:00 Giovany Bradley 350.1.13.10 i ty of [place].2.[place].2.[place] [phone] [facility] 220 [facility] 2020-01-24 2020-01-24 [facility] 1.2.840.114 [id number] Univers 00:00:00 00:00:00 [facility] 350.1.13.10 it y of [place] 4.2.7.2.686 [place] [address] [phone] [facility] nal [address] [place] [address] Office [facility] 2020-01-23 2020-01-23 [facility] 1.2.840.114 [id number] Univers 00:00:00 00:00:00 Giovany Bradley 350.1.13.10 i ty of [place].2.[place] [phone] [facility] 220 [facility] 2020-01-18 2020-01-18 Refprabhjot NevarezersPRESBYTERIAN HOSP[facility] 1.2.840.114 [id number] Univers 00:00:00 00:00:00 [facility] 350.1.13.10 it y of [place] 4.2.7.2.686 [place] [address] [phone] [facility] nal [address] [place] [address] Office [facility] 2020-01-09 2020-01-09 Office [facility]PRES[facility] 1.2.840.114 [id number] Univers 11:54:37 12:09:37 Visit Jefferson Bradley 350.1.13.10 i ty of [place] [phone] [address] 2020-01-09 2020-01-09 Outpatient [facility] [id number] Univers 12:00:00 12:00:00 JEFFERSON copeland [facility] 2019-12-30 2019-12-30 Telephone Eduar [facility] 1.2.811.919 [id number] Univers 00:00:00 00:00:00 [facility] 350.1.13.10 it y of [place] 4.2.7.2.686 [place] as Professio [phone] Ks dical nal [address] Building One 2019-12-29 2019-12-29 Telephone Eduar [facility] 1.2.420.773 [id number] Univers 00:00:00 00:00:00 [facility] 350.1.13.10 it y of [place] 4.2.7.2.686 [place] Professio [phone] [facility] 0[address] [place] Office [facility] One 2019-12-27 2019-12-27 Telephone Elina [facility] 1.2.840.114 [id number] Univers 00:00:00 00:00:00 Giovany H [place] 350.1.13.10 i ty of [place].2.[place] [phone] [facility] 220 [facility] 2019-12-27 2019-12-27 Refprabhjot Witt [facility] 1.2.840.114 [id number] Univers 00:00:00 00:00:00 [facility] 350.1.13.10 it y of [place] 4.2.7.2.686 [place] [address]io [phone] [facility] nal [address] [facility] One 2019-12-20 2019-12-20 Refprabhjot Witt [facility] 1.2.840.114 [id number] Univers 00:00:00 00:00:00 [facility] [id number] it y of [place] [id number] [place] [facility]io [phone] [facility] [address] [facility] 2019-12-15 2019-12-19 Urgent Provider, [facility] 1.2.840.114 [id number] Univers 10:46:49 09:53:57 Care [facility] 350.1.13.10 ity of [place] 4.2.7.2.686 [place] Professio [phone] [facility] [address] [facility] 2019-12-19 2019-12-19 Telephone Gordon [facility] [id number] Univers 00:00:00 00:00:00 [facility] [id number] it y of [place] [id number] [place] Professio [phone] [place] ashley nal Lu[address] [facility] 2019-12-16 2019-12-16 [facility] 1.2.840.114 [id number] Univers 00:00:00 00:00:00 [facility] 350.1.13.10 it y of [place] 4.2.7.2.686 [place] Professio [phone] [place] ashley nal [address] [place] [address] One 2019-12-16 2019-12-16 [facility] 1.2.840.114 [id number] Univers 00:00:00 00:00:00 [facility] [id number] it y of [place] 4.2.7.2.686 [place] Professio [phone] [place] ashley wynn [address] [place] [address] One 2019-12-15 2019-12-15 Outpatient R [facility] [id number] Univers 11:00:00 11:00:00 ity [facility] 2019-12-13 2019-12-13 Outpatient R [facility] [id number] Univers 09:40:00 [facility]40[facility] 2019-12-08 [facility] 1.2.840.114 [id number] Univers 00:00:00 00:00:00 [facility] [id number] it y of [place] [id number] [place] Professio [phone] [place] shiraal nal [address] [place] [address] One 2019-12-01 2019-12-01 [facility] 1.2.840.114 [id number] Univers 00:00:00 00:00:00 [facility] 350.1.13.10 it y of [place] 4.2.7.2.686 Sark[place] as Professio [phone] [place] dical nal [address] [place] [address] 2019-11-30 2019-11-30 Refill Eduar [facility] 1.2.840.114 [id number] Univers 00:00:00 00:00:00 [facility] Bradley 350.1.13.10 i [place] [phone] [place] dical nal 044 [facility] 2019-11-29 2019-11-29 Telephone Pob1, Acute [facility] 1.2.840.114 [id number] Univers 00:00:00 00:00:00 [facility] 350.1.13.10 ity of [place] 4.2.7.2.686 [place] as Professio [phone] [facility] [address] [place] [address] 2019-11-28 2019-11-28 Refprabhjot WittPRES[facility] 1.2.840.114 [id number] Univers 00:00:00 00:00:00 [facility] 350.1.13.10 it y of [place] 4.2.7.2.686 [place] as Professio [phone] [facility] [address] [place] [address] 2019-11-25 2019-11-25 Plant Security Guard 2, Adc Lab [facility] 1.2.840.114 [id number] Univers 08:03:12 08:18:12 Visit Jefferson Witt 350.1.13.10 ity of [place] [phone] [facility] 353 [facility] 2019-11-25 2019-11-25 Outpatient R EDUAR [facility] [id number] Univers 08:00:00 08:00:00 JEFFERSON min [facility] 2019-11-25 2019-11-25 Telephone [facility] 1.2.370.700 [id number] Univers 00:00:00 00:00:00 [facility] 350.1.13.10 it y of [place] 4.2.7.2.686 S[place]is as Professio [phone] [facility] nal [address] [place] [address] 2019-11-24 2019-11-24 Telephone Dariel [facility] 1.2.840.114 [id number] Univers 00:00:00 00:00:00 Keila Bradley 350.1.13.10 i [place] [phone] [address] 2019-11-24 2019-11-24 Telephone [facility] 1.2.486.679 [id number] Univers 00:00:00 00:00:00 Rosette [facility] 350.1.13.10 i ty of [place] 4.2.7.2.686 [place] Professio [phone] [address] Office Building One 2019-11-23 2019-11-23 Outpatient R [facility] [id number] Univers 15:29:34 23:59:00 PETER ity of [facility] 2019-11-23 2019-11-23 [facility] 1.2.840.114 [id number] Univers 15:15:00 23:59:00 Encounter Keila Bradley 350.1.13.10 ity of [place] [phone] [facility] [address] 2019-11-23 2019-11-23 Urgent Pob1, Acute Care Clinic [facility] 1. 2.840.114 [id number] Univers 14:33:27 14:53:27 Care MikaleanneKeila Nathan 350.1.13.10 ity of [place] 4.2.7.2.686 [place] Professio [phone] [address] Office [facility] One 2019-11-23 2019-11-23 Outpatient R [facility] [id number] Univers 14:40:00 14:40:00 ity of [facility] 2019-11-23 2019-11-23 [facility]ill [facility] 1.2.840.114 [id number] Univers 00:00:00 00:00:00 [facility] 350.1.13.10 it y of [place] 4.2.7.2.686 [place] Professio [phone] [address] Office [facility] 2019-11-23 2019-11-23 Refill [facility] 1.2.840.114 [id number] Univers 00:00:00 00:00:00 [facility] 350.1.13.10 it y of [place] 4.2.7.2.686 [place] as Professio [phone] [facility] 044 [facility] 2019-11-16 2019-11-16 Telephone [facility] 1.2.840.114 [id number] Univers 00:00:00 00:00:00 Giovany Bradley 350.1.13.10 i [place] [phone] [facility] nal 220 [facility] 2019-11-15 2019-11-15 [facility] 1.2.840.114 [id number] Univers 00:00:00 00:00:00 [facility] 350.1.13.10 it y of [place] 4.2.7.2.686 [place] Professio [phone] [facility] 044 [facility] 2019-11-10 2019-11-10 Office [facility] 1.2.840.114 [id number] Univers 08:41:49 08:56:49 Visit Jefferson Pageton 350.1.13.10 i ty of [place]2.[place].2.[place] [phone] [address] 2019-11-10 2019-11-10 [facility] [id number] Univers 08:45:00 08:45:00 JEFFERSON copeland [facility] 2019-11-07 2019-11-07 Telephone [facility] 1.2.535.153 [id number] Univers 00:00:00 00:00:00 [facility] 350.1.13.10 it y of [place] 4.2.7.2.686 Sakris as Professio [phone] [facility] 044 [facility] 2019-11-02 2019-11-02 Refill [facility] 1.2.840.114 [id number] Univers 00:00:00 00:00:00 [facility] 350.1.13.10 it y of [place] 4.2.7.2.686 S[place]is as Professio [phone] Ks dical nal [address] Office [facility] 2019-10-26 2019-10-26 Refprabhjot WittPRES[facility] 1.2.840.114 [id number] Univers 00:00:00 00:00:00 [facility] 350.1.13.10 it y of [place] 4.2.7.2.686 [place] as Professio [phone] [facility] nal [address] [place] [address] 2019-10-24 2019-10-24 Telephone [facility] 1.2.601.719 [id number] Univers 00:00:00 00:00:00 [facility] 350.1.13.10 it y of [place] 4.2.7.2.686 [place] as Professio [phone] [facility] nal [address] [place] [address] 2019-10-21 2019-10-21 [facility] 1.2.894.633 [id number] Univers 00:00:00 00:00:00 Giovany Bradley 350.1.13.10 i ty of [place] [phone] [address] 2019-10-18 2019-10-18 Outpatient R [facility] [id number] Univers 08:20:00 08:20:00 ity of [facility] 2019-10-14 2019-10-[address] [facility] 1.2.840.114 [id number] Univers 00:00:00 00:00:00 Giovany Bradley 350.1.13.10 i ty of [place]2.[place].2.[place] [phone] [address] 2019-10-14 2019-10-14 Telephone [facility] 1.2.840.114 [id number] Univers 00:00:00 00:00:00 Giovany Bradley 350.1.13.10 i ty of [place]2.[place].2.[place] [phone] [address] 2019-10-13 2019-10-13 Telephone [facility] 1.2.496.295 [id number] Univers 00:00:00 00:00:00 [facility] 350.1.13.10 it y of [place] 4.2.7.2.686 [place] as Professio [phone] [address] Office [facility] One 2019-10-12 2019-10-12 Refprabhjot Witt NEMAGALYS 1.2.840.114 [id number] Univers 00:00:00 00:00:00 [facility] 350.1.13.10 it y of [place] 4.2.7.2.686 S[place] as Professio [phone] [address] One 2019-10-11 2019-10-11 Telephone Eduar [facility] 1.2.810.991 [id number] Univers 00:00:00 00:00:00 [facility] 350.1.13.10 it y of [place] 4.2.7.2.686 [place] Professio [phone] [address] One 2019-10-11 2019-10-11 Orders Doctor BISI 1.2.840.114 [id number] Univers 00:00:00 00:00:00 Only Unassigned, BRIAN 350.1.13.10 ity of [place] [facility] 4.2.7.2.686 Sarkis as [phone] [address] 2019-10-04 2019-10-04 Refprabhjot Witt [facility] 1.2.840.114 [id number] Univers 00:00:00 00:00:00 [facility] 350.1.13.10 it y of [place] 4.2.7.2.686 S[place] as Professio [phone] [facility] nal [address] [place] [address] Office Building One 2019-09-29 2019-09-29 Telephone Eduar NEMAGALYS 1.2.000.698 [id number] Univers 00:00:00 00:00:00 [facility] 350.1.13.10 it y of [place] 4.2.7.2.686 [place] as Professio [phone] [address] Office Building One 2019-09-29 2019-09-29 Telephone Eduar [facility] 1.2.655.540 [id number] Univers 00:00:00 00:00:00 [facility] 350.1.13.10 it y of [place] 4.2.7.2.686 [place] as Professio [phone] [address] Office [facility] One 2019-09-28 2019-09-28 Refill [facility] 1.2.840.114 [id number] Univers 00:00:00 00:00:00 [facility] 350.1.13.10 it y of [place] 4.2.7.2.686 [place] as Professio [phone] [address] Office [facility] One 2019-09-28 2019-09-28 Telephone [facility] 1.2.167.684 [id number] Univers 00:00:00 00:00:00 [facility] 350.1.13.10 it y of [place] 4.2.7.2.686 [place] Professio [phone] [address] Office [facility] One 2019-09-27 2019-09-27 Telephone [facility] 1.2.188.795 [id number] Univers 00:00:00 00:00:00 [facility] 350.1.13.10 it y of [place] 4.2.7.2.686 [place] as Professio [phone] [address] Office [facility] One 2019-09-26 2019-09-26 Office [facility] 1.2.840.114 [id number] Univers 14:15:35 14:45:35 Visit [facility] 350.1.13.10 it y of [place] 4.2.7.2.686 [place] as Professio [phone] [address] Office [facility] One 2019-09-26 2019-09-26 [facility] [id number] Univers 14:30:00 14:30:00 JEFFERSON copeland of [facility] 2019-09-26 2019-09-26 Orders Doctor BISI 1.2.840.114 [id number] Univers 00:00:00 00:00:00 Only Unassigned, BRIAN 350.1.13.10 ity of [place] [facility] 4.2.7.2.686 Sarkis as [phone] [facility] [address] 2019-09-23 2019-09-23 Outpatient R ELINA [facility] [id number] Univers 13:30:00 14:11:38 GIOVANY copeland of [facility] 2019-09-23 2019-09-23 Office Elina [facility] 1.2.201.427 [id number] Univers 13:25:38 14:11:38 Visit Giovany Bradley 350.1.13.10 i ty of [place] [phone] [facility] 220 [facility] 2019-09-23 2019-09-23 Nurse Ciara Alvarez 1.2.840.114 [id number] Univers 00:00:00 00:00:00 Triage BRIAN 350.1.13.10 it y of [facility] 4.2.7.2.686 Sarkis as [phone] [facility] [address] 2019-09-16 2019-09-16 [facility] 1.2.165.990 [id number] Univers 00:00:00 00:00:00 [facility] 350.1.13.10 it y of [place] 4.2.7.2.686 [place] as Professio [phone] [facility] [address] Office [facility] One 2019-09-13 2019-09-13 Telephone [facility] 1.2.360.486 [id number] Univers 00:00:00 00:00:00 [facility] 350.1.13.10 it y of [place] 4.2.7.2.686 [place] as Professio [phone] [facility] [address] Office [facility] One 2019-09-13 2019-09-13 Orders Doctor BISI 1.2.840.114 [id number] Univers 00:00:00 00:00:00 Only Unassigned, BRIAN 350.1.13.10 ity of [place] [facility] 4.2.7.2.686 Sarkis as [phone] [facility] [address] 2019-09-12 2019-09-12 Refill [facility] 1.2.840.114 [id number] Univers 00:00:00 00:00:00 [facility] 350.1.13.10 it y of [place] 4.2.7.2.686 Sarkis as Professio [phone] Ks dical nal 044 [facility] One 2019-09-08 2019-09-08 Refprabhjot WittPRES[facility] 1.2.840.114 [id number] Univers 00:00:00 00:00:00 [facility] 350.1.13.10 it y of [place] 4.2.7.2.686 [place] as Professio [phone] [facility] 044 [facility] One 2019-09-05 2019-09-05 Refprabhjot WittPRES[facility] 1.2.840.114 [id number] Univers 00:00:00 00:00:00 [facility] 350.1.13.10 it y of [place] 4.2.7.2.686 S[place] as Professio [phone] Ks dical nal 044 [facility] One 2019-08-25 2019-08-25 Refprabhjot WittPRES[facility] 1.2.840.114 [id number] Univers 00:00:00 00:00:00 [facility] 350.1.13.10 it y of [place] 4.2.7.2.686 [place] as Professio [phone] Ks dical nal [address] [place] [address] One 2019-08-25 2019-08-25 Refprabhjot WittPRES[facility] 1.2.840.114 [id number] Univers 00:00:00 00:00:00 [facility] 350.1.13.10 it y of [place] 4.2.7.2.686 [place] as Professio [phone] Ks dical nal [address] [place] [address] One 2019-08-23 2019-08-23 Refill [facility] 1.2.514.679 [id number] Univers 00:00:00 00:00:00 Giovany Bradley 350.1.13.10 i ty of [place].2.[place] [phone] Ks dical nal 220 [facility] 2019-08-17 2019-08-17 Telephone [facility] 1.2.840.114 [id number] Univers 00:00:00 00:00:00 Giovany Pageton 350.1.13.10 i ty of [place].2.7.2.[place] [phone] [place] nal [address] 2019-08-15 2019-08-15 Refprabhjot Witt [facility] 1.2.840.114 [id number] Univers 00:00:00 00:00:00 [facility] 350.1.13.10 it y of [place] 4.2.7.2.686 [place] as Professio [phone] [place]s [place] nal [address] Office Building One 2019-08-13 2019-08-13 Refprabhjot Witt [facility] 1.2.840.114 [id number] Univers 00:00:00 00:00:00 [facility] 350.1.13.10 it y of [place] 4.2.7.2.686 S[place] as Professio [phone] [facility] [address] Office Building One 2019-04-15 2019-04-15 Refprabhjot Witt N[facility] 1.2.840.114 [id number] Univers 00:00:00 00:00:00 [facility] 350.1.13.10 it y of [place] 4.2.7.2.686 [place] [address] [phone] [facility] nal [address] Office Building One 2019-04-13 2019-04-13 Office Eduar NEMAGAL[facility] 1.2.840.114 [id number] Univers 13:52:51 14:14:54 Visit [facility] 350.1.13.10 it y of [place] 4.2.7.2.686 S[place] as Professio [phone] [facility] [address] Office Building One 2019-04-13 2019-04-13 Orders Doctor BISI 1.2.840.114 [id number] Univers 00:00:00 00:00:00 Only Unassigned, BRIAN 350.1.13.10 ity of [place] [facility] 4.2.7.2.686 Sarkis as [phone] [address] 2019-04-07 2019-04-07 Refprabhjot Witt [facility] 1.2.840.114 [id number] Univers 00:00:00 00:00:00 [facility] 350.1.13.10 it y of [place] 4.2.7.2.686 [place] as Professio [phone] [address] One 2019-04-05 2019-04-[address] [facility] 1.2.840.114 [id number] Univers 00:00:00 00:00:00 Giovany Bradley 350.1.13.10 i ty [place].2.[place] [phone] [facility] 220 [facility] 2019-04-05 2019-04-05 [facility] 1.2.840.114 [id number] Univers 00:00:00 00:00:00 [facility] 350.1.13.10 it y of [place] 4.2.7.2.686 [place] as Professio [phone] [address] One 2019-03-31 2019-03-31 [facility] 1.2.840.114 [id number] Univers 00:00:00 00:00:00 [facility] 350.1.13.10 it y of [place] 4.2.7.2.686 [place] as Professio [phone] [address] One 2019-03-29 2019-03-29 Telephone [facility] 1.2.840.114 [id number] Univers 00:00:00 00:00:00 Giovany Claudia Mirna 350.1.13.10 i ty of [place].2.[place] [phone] [facility] 220 [facility] 2019-03-29 2019-03-29 Orders Doctor BISI 1.2.840.114 [id number] Univers 00:00:00 00:00:00 Only Unassigned, BRIAN 350.1.13.10 ity of [place] [facility] 4.2.7.2.686 Sark[place] as [phone] [address] 2019-03-21 2019-03-21 Telephone [facility] 1.2.840.114 [id number] Univers 00:00:00 00:00:00 Giovany Taylor [place] 350.1.13.10 i ty of [place]2.7.2.[place] [phone] Ks ashley wynn 220 [facility] 2019-03-17 2019-03-17 Viktoriya Witt [facility] 1.2.840.114 [id number] Univers 00:00:00 00:00:00 [facility] 350.1.13.10 it y of [place] 4.2.7.2.686 Sarkis as Professio [phone] Ks ashley wynn [address] Office [facility] One 2019-03-17 2019-03-17 [facility]ya [facility] 1.2.840.114 [id number] Univers 00:00:00 00:00:00 [facility] 350.1.13.10 it y of [place] 4.2.7.2.686 Sarkis as Professio [phone] Ks ashley wynn [address] Office [facility] One 2019-03-09 2019-03-09 [facility] 1.2.840.114 [id number] Univers 00:00:00 00:00:00 [facility] 350.1.13.10 it y of [place] 4.2.7.2.686 Sarkis as Professio [phone] Ks ash[place] nal [address] Office [facility] One 2019-03-03 2019-03-03 Vik[facility]ya [facility]PRES[facility] 1.2.840.114 [id number] Univers 00:00:00 00:00:00 [facility] 350.1.13.10 it y of [place] 4.2.7.2.686 Sarkis as Professio [phone] [place]s [place] nal [address] Office [facility] One 2019-02-28 2019-02-28 Vik[facility]ya [facility] 1.2.840.114 [id number] Univers 00:00:00 00:00:00 [facility] 350.1.13.10 it y of [place] 4.2.7.2.686 Sarkis as Professio [phone] [place]s [place] nal [address] Office [facility] One 2018-11-01 2018-11-01 Vik[facility]oriya [facility] 1.2.840.114 [id number] Univers 00:00:00 00:00:00 Lithera 350.1.13.10 it y of [place] 4.2.7.2.686 Sarkis as Alivia [phone] Ks dical nal [address] Building One Results Test Description Test Time Test Comments Results Result Comments Source COMP. METABOLIC PANEL (21818) 2022-07-19 21:35:09 Test Item Value Reference Range Interpretation Comme nts NA (test code = 6355542592) 139 mmol/L 135-145 K (test code = 9659657276) 4.1 mmol/L 3.5-5.0 CL (test code = 6441804694) 102 mmol/L 98-108 CO2 TOTAL (test code = 8576418739) 29 mmol/L 23-31 AGAP (test code = 4522478397) 2-16 BUN (test code = 6967123349) 12 mg/dL 7-23 GLUCOSE (test code = 7399177073) 236 mg/dL 70-110 H CREATININE (test code = 0.59 mg/dL 0.50-1.04 6549040752) TOTAL BILI (test code = 0.5 mg/dL 0.1-1.0 0951354437) CALCIUM (test code = 6490339257) 8.8 mg/dL 8.6-10.6 T PROTEIN (test code = 4501272670) 7.0 g/dL 6.3-8.2 ALBUMIN (test code = 4305777298) 4.2 g/dL 3.5-5.0 ALK PHOS (test code = 8210239064) 77 U/L 34-122 ALTv (test code = 1742-6) 27 U/L 5-35 AST(SGOT) (test code = 7967031600) 22 U/L 13-40 eGFR (test code = 0760783572) mL/min/1.73m2 DENISHA (test code = DENISHA) Association [...] tests). Lab Interpretation (test code = Abnormal 61050-7) [facility] WITH [id number] 21:11:06 Test Item Value Reference Range Interpretation Comments WBC (test code = See_Comment [Automated 4690-2) message] The sy stem which generated this result transmitted reference range : 4.30 - 11.10 10*3/?L. The reference range was not used to interpret this result as normal/abnormal . RBC (test code = See_Comment [Automated 249-8) message] The sy stem which generated this [...] RDW-SD (test code = 43.3 fL 39.0-49.9 19297-5) RDW-CV (test code = 14.8 % 12.0-15.5 788-0) PLT (test code = See_Comment [Automated 777-3) message] The sy stem which generated this result transmitted reference range : 166 - 358 10*3/ ?L. The reference r victorina was not used to interpret this result as normal/abnormal . MPV (test code = 11.0 fL 9.5-12.9 46286-9) NRBC/100 WBC (test See_Comment [Automat ed code = 8495291159) message] The system which generated this result transmitted reference range : 0.0 - 10.0 /100 WBCs. The refer ence range was not u sed to interpret th is result as normal/abnormal . NRBC x10^3 (test code See_Comment [Auto mated = 2753643022) message] The s ystem which generated this result transmitted reference range : 10*3/?L. The reference range was not used to interpret this result as normal/abnormal . GRAN MAT (NEUT) % 66.5 % (test code = 770-8) IMM GRAN % (test code 0.80 % = 1340436503) LYMPH % (test code = 21.8 % 736-9) MONO % (test code = 7.3 % 5905-5) EOS % (test code = 2.8 % 713-8) BASO % (test code = 0.8 % 706-2) GRAN MAT x10^3(ANC) 7.14 10*3/uL 1.88-7.09 H (test code = 3645202788) IMM GRAN x10^3 (test 0.09 10*3/uL 0.00-0.06 H code = 1080943271) LYMPH x10^3 (test code 2.35 10*3/uL 1.32-3.29 = 731-0) MONO x10^3 (test code 0.79 10*3/uL 0.33-0.92 = 742-7) EOS x10^3 (test code = 0.30 10*3/uL 0.03-0.39 711-2) BASO x10^3 (test code 0.09 10*3/uL 0.01-0.07 H = 704-7) Lab Interpretation Abnormal (test code = 95598-3) [facility] [id number] 16:47:33 Test Item Value Reference Interpretation Comments Range TROPONIN I (test 0.005 ng/mL See_Comment [Automated code = 8606598287) message] The system which generated this result [...] biotin. Lab Interpretation Normal (test code = 86877-7) [facility] Hospital[facility] MET[facility]OLIC PANEL (39341)2022-05-29 16:36:15 Test Item Value Reference Range Interpretation Comments NA (test code = 137 mmol/L 135-145 0817532778) K (test code = 4.4 mmol/L 3.5-5.0 0641487125) CL (test code = 100 mmol/L 98-108 9737618864) CO2 TOTAL (test code = 22 mmol/L 23-31 L 9482789631) AGAP (test code = 2-16 2621898115) BUN (test code = 14 mg/dL 7-23 2265208446) GLUCOSE (test code = 190 mg/dL 70-110 H 6374297759) CREATININE (test code = 0.70 mg/dL 0.50-1.04 2270570923) TOTAL BILI (test code = 0.3 mg/dL 0.1-1.8 9693505049) CALCIUM (test code = 9.6 mg/dL 8.6-10.6 5393982221) T PROTEIN (test code = 6.8 g/dL 6.3-8.2 8696497000) ALBUMIN (test code = 4.2 g/dL 3.5-5.0 4956945041) ALK PHOS (test code = 67 U/L 34-122 5261149025) ALTv (test code = 40 U/L 5-35 H 1742-6) AST(SGOT) (test code = 44 U/L 13-40 H 8262134515) eGFR (test code = mL/min/1.73m2 0028902428) DENISHA (test code = DENISHA) Association of [...] tests). Lab Interpretation Abnormal (test code = 65390-6) [facility] HospitalLIPASE2022-10-27 16:35:55 Test Item Value Reference Range Interpretation Comments LIPASE (test code = 4376795411) 85 U/L 0-220 Lab Interpretation (test code = Normal 51566-5) [facility] HospitalCBC WITH [id number] 16:18:33 Test Item Value Reference Range Interpretation [...] RDW-SD (test code = 43.2 fL 39.0-49.9 12892-5) RDW-CV (test code = 15.1 % 12.0-15.5 788-0) PLT (test code = See_Comment [Automated 777-3) message] The sy stem which generated this result transmitted reference range : 166 - 358 10*3/ ?L. The reference r victorina was not used to interpret this result as normal/abnormal . MPV (test code = 10.3 fL 9.5-12.9 10957-6) NRBC/100 WBC (test See_Comment [Automat ed code = [id number]) message] The system which generated this result transmitted reference range : 0.0 - 10.0 /100 WBCs. The refer ence range was not u sed to interpret th is result as normal/abnormal . NRBC x10^3 (test code See_Comment [Auto mated = [id number]) message] The s ystem which generated this result transmitted reference range : 10*3/?L. The reference range was not used to interpret this result as normal/abnormal . GRAN MAT (NEUT) % 66.7 % (test code = 770-8) IMM GRAN % (test code 0.80 % = [id number]) LYMPH % (test code = 23.3 % 736-9) MONO % (test code = 5.2 % 5905-5) EOS % (test code = 3.0 % 713-8) BASO % (test code = 1.0 % 706-2) GRAN MAT x10^3(ANC) 6.50 10*3/uL 1.88-7.09 (test code = [id number]) IMM GRAN x10^3 (test 0.08 10*3/uL 0.00-0.06 H code = [id number]) LYMPH x10^3 (test code 2.27 10*3/uL 1.32-3.29 = 731-0) MONO x10^3 (test code 0.51 10*3/uL 0.33-0.92 = 742-7) EOS x10^3 (test code = 0.29 10*3/uL 0.03-0.39 711-2) BASO x10^3 (test code 0.10 10*3/uL 0.01-0.07 H = 704-7) Lab Interpretation Abnormal (test code = 27680-6) [facility] HEMOGLOBIN A1C [id number] 21:18:00 Test Item Value Reference Range Interpretation Comments POCT HBA1C (test code = 4548-4) 7.5 % 4-6 A Lab Interpretation (test code = Abnormal 69340-9) [facility] HEMOGLOBIN A1C [id number] 21:18:00 Test Item Value Reference Range Interpretation Comments POCT HBA1C (test code = 4548-4) 7.5 % 4-6 A Lab Interpretation (test code = Abnormal 66131-5) [facility]
--- NOTE | 2022-09-04 12:30 | EDPHYS ---
Physician Documentation [facility] Name: Jose Edmond Age: 62 yrs Sex: Female : 1960 Arrival Date: 09/04/2022 Time: 10:47 Bed 9 Private MD: Pete Ann U; Jefferson Witt S ED Physician Parmjit Ramon HPI: 09/04 11:03 This 62 yrs old Female presents to ER via Wheelchair with complaints of problem w/picc ms3 line. 11:03 62-year-old female presents after pulling out her PICC line overnight. Patient states ms3 she is on daptomycin and another antibiotic that she needs infused by her home health. Patient states without PICC line she is unable to receive these. Patient denies pain, fevers, chills, nausea, vomiting, shortness of breath at this time.. Historical: - Allergies: 10:58 Sulfa (Sulfonamide Antibiotics); ll1 10:58 TETRACYCLINES; ll1 - PMHx: 10:58 Chronic obstructive lung disease; diabetes mellitus; Hypertensive disorder; ll1 - PSHx: 10:58 back; section; Cholecystectomy; foot sx; hernia; hysterectomy; ll1 - Immunization history:: Client reports receiving the 2nd dose of the Covid vaccine. - Social history:: Smoking status: Reported history of juuling and/or vaping. ROS: 11:03 Constitutional: Negative for fever, and chills. Neck: Negative for injury, pain, and ms3 swelling, Cardiovascular: Negative for chest pain, and palpitations. Respiratory: Negative for shortness of breath, cough, wheezing, and pleuritic chest pain, Abdomen/GI: Negative for abdominal pain, nausea, vomiting, diarrhea, and constipation, MS/Extremity: Negative for injury and deformity. 11:03 All other systems are negative. Exam: 11:03 Constitutional: This is a well developed, well nourished patient who is awake, alert, ms3 and in no acute distress. Neck: Trachea midline, no cervical lymphadenopathy. Supple, full range of motion without nuchal rigidity, or vertebral point tenderness. No Meningismus. Chest/axilla: Normal chest wall appearance and motion. Nontender with no deformity. Cardiovascular: Regular rate and rhythm with a normal S1 and S2. No gallops, murmurs, or rubs. Normal PMI, no JVD. No pulse deficits. Respiratory: Lungs have equal breath sounds bilaterally, clear to auscultation and percussion. No rales, rhonchi or wheezes noted. No increased work of breathing, no retractions or nasal flaring. Abdomen/GI: Soft, non-tender, with normal bowel sounds. No distension or tympany. No guarding or rebound. No evidence of tenderness throughout. MS/ Extremity: Pulses equal, no cyanosis. Neurovascular intact. Full, normal range of motion. Vital Signs: 10:59 BP 132 / 53; Pulse 99; Resp 18; Temp 98.1; Pulse Ox 93% ; Weight 107.5 kg; Height 5 ft. ll1 5 in. (165.10 cm); Pain 0/10; 12:45 BP 136 / 50; Pulse 98; Resp 16; Pulse Ox 95% ; ko1 10:59 Body Mass Index 39.44 (107.50 kg, 165.10 cm) ll1 MDM: 11:02 Patient medically screened. ms3 11:03 Differential Diagnosis PICC Line malfunction. ms3 12:38 Data reviewed: vital signs, nurses notes. Counseling: I had a detailed discussion with ms3 the patient and/or guardian regarding: the historical points, exam findings, and any diagnostic results supporting the discharge/admit diagnosis, Need for observation. ED course: Discussed case with Dr Krueger and he agrees with observation.. 09/04 12:30 Order name: SARS RAPID ms3 09/04 13:10 Order name: Social Service Consult EDMS Administered Medications: No medications were administered Disposition Summary: 09/04/22 12:29 Hospitalization Ordered Hospitalization Status: Observation ms3 Provider: Oren Krueger ms3 Location: Telemetry/MedSurg (observation) ms3 Condition: Stable ms3 Problem: new ms3 Symptoms: are unchanged ms3 Bed/Room Type: Standard ms3 Room Assignment: 211(09/04/22 14:25) Diagnosis - PICC line displaced ms3 - Diabetes Mellitus ms3 - Osteomyelitis, unspecified ms3 Forms: - Medication Reconciliation Form ms3 - SBAR form ms3 Signatures: Dispatcher [employer] EDMS Lesley Newell RN RN Riley Castrejon RN RN ll1 Parmjit Ramon DO DO ms3 Corrections: (The following items were deleted from the chart) 14:25 12:29 ms3 ss
--- NOTE | 2022-09-04 12:30 | ER ---
Nurse's Notes [facility] Name: Jose Edmond Age: 62 yrs Sex: Female : 1960 Arrival Date: 09/04/2022 Time: 10:47 Bed 9 Private MD: Pete Ann U; Jefferson Witt S Diagnosis: PICC line displaced;Diabetes Mellitus;Osteomyelitis, unspecified Presentation: 09/04 10:59 Chief complaint: Patient states: L arm PICC line came out last night. Needs IV ll1 antibiotics for foot infection. Coronavirus screen: Vaccine status: Patient reports receiving the 2nd dose of the covid vaccine. Client denies travel out of the [place] in the last 14 days. At this time, the client does not indicate any symptoms associated with coronavirus-19. Ebola Screen: Patient denies travel to an Ebola-affected area in the 21 days before illness onset. Initial Sepsis Screen: Does the patient meet any 2 criteria? No. Patient's initial sepsis screen is negative. Does the patient have a suspected source of infection? No. Patient's initial sepsis screen is negative. Risk Assessment: Do you want to hurt yourself or someone else? Patient reports no desire to harm self or others. Onset of symptoms was September 03, 2022. 10:59 Method Of Arrival: Wheelchair ll1 10:59 Acuity: MAYRA 4 ll1 Historical: - Allergies: 10:58 Sulfa (Sulfonamide Antibiotics); ll1 10:58 TETRACYCLINES; ll1 - PMHx: 10:58 Chronic obstructive lung disease; diabetes mellitus; Hypertensive disorder; ll1 - PSHx: 10:58 back; section; Cholecystectomy; foot sx; hernia; hysterectomy; ll1 - Immunization history:: Client reports receiving the 2nd dose of the Covid vaccine. - Social history:: Smoking status: Reported history of juuling and/or vaping. Screenin:45 [facility] ED Fall Risk Assessment (Adult) History of falling in the last 3 months, ko1 including since admission No falls in past 3 months (0 pts) Confusion or Disorientation No (0 pts) Intoxicated or Sedated No (0 pts) Impaired Gait Yes (1 pt) Mobility Assist Device Used Yes (1 pt) Altered Elimination No (0 pt) Score/Fall Risk Level 0 - 2 = Low Risk Oriented to surroundings, Maintained a safe environment, Educated pt \T\ family on fall prevention, incl call for assistance when getting out of bed, Assessed \T\ reinforced patient's understanding of fall precautions, Provided non-skid footwear, Hourly rounding (assess needs \T\ fall precautionary measures) done, Used ambulatory aids as needed (educated on \T\ assisted with), Used gait belt as appropriate. Abuse screen: Denies threats or abuse. Denies injuries from another. Nutritional screening: No deficits noted. Tuberculosis screening: No symptoms or risk factors identified. Assessment: 12:45 General: Appears in no apparent distress. uncomfortable, Behavior is calm, cooperative, ko1 appropriate for age. Pain: Denies pain. Neuro: No deficits noted. Cardiovascular: No deficits noted. Respiratory: No deficits noted. GI: No deficits noted. : No deficits noted. EENT: No deficits noted. Derm: No deficits noted. Musculoskeletal:. Vital Signs: 10:59 BP 132 / 53; Pulse 99; Resp 18; Temp 98.1; Pulse Ox 93% ; Weight 107.5 kg; Height 5 ft. ll1 5 in. (165.10 cm); Pain 0/10; 12:45 BP 136 / 50; Pulse 98; Resp 16; Pulse Ox 95% ; ko1 10:59 Body Mass Index 39.44 (107.50 kg, 165.10 cm) ll1 ED Course: 10:47 Patient arrived in ED. as 10:47 Jefferson Witt MD is Private Physician. as 10:47 Pete Ann MD is Private Physician. as 10:54 Parmjit Ramon DO is Attending Physician. ms3 11:01 Triage completed. ll1 11:01 Arm band placed on. ll1 12:29 Oren Krueger MD is Hospitalizing Provider. ms3 12:45 Patient has correct armband on for positive identification. Bed in low position. Call ko1 light in reach. Adult w/ patient. Pulse ox on. NIBP on. 12:45 No provider procedures requiring assistance completed. Patient did not have IV access ko1 during this emergency room visit. 12:51 Emily Blunt, CASTILLO is Primary Nurse. ko1 13:28 SARS RAPID Sent. ko1 Administered Medications: No medications were administered Medication: 12:45 VIS not applicable for this client. ko1 Outcome: 12:29 Decision to Hospitalize by Provider. ms3 12:45 Admitted to Med/surg accompanied by tech, room 211, with chart. ko1 12:45 Condition: stable 12:45 Instructed on the need for admit. 15:06 Patient left the ED. ko1 Signatures: Ludivina Ledesma Lynsay, RN RN ll1 Parmjit Ramon DO DO ms3 Emily Blunt, CASTILLO RN ko1 Corrections: (The following items were deleted from the chart) 11:05 10:59 Resp 18bpm; Temp 98.1F; 107.5 kg; Height 5 ft. 5 in.; BMI: 39.4; Pain 0/10; ll1 ll1 14:35 12:45 Admitted to Med/surg accompanied by tech, room 212, with chart, ko1 ko1
--- NOTE | 2022-09-04 13:08 | P.HP ---
Certification for Inpatient Patient admitted to: Observation With expected LOS: <2 Midnights Patient will require the following post-hospital care: Home Health Services Practitioner: I am a practitioner with admitting privileges, knowledge of patient current condition, hospital course, and medical plan of care. Services: Services provided to patient in accordance with Admission requirements found in Title 42 Section 412.3 of the Code of Federal Regulations Patient History Date of Service: 09/04/22 Reason for admission: Accidental PICC line removal History of Present Illness: Patient is a 62-year-old female with a past medical history significant for COPD, hypertension, DM 2. Patient presents to the emergency room with complaints of accidentally removing her PICC line. Patient was evaluated in ED, with at the bedside. Per patient and they do not know how the PICC line was removed. Patient states that she noticed the PICC line was sitting on the side of her chair. Patient is currently on daptomycin and another antibiotic at home treatment for a left foot wound. Patient will be admitted under observation for the placement of a PICC line. Allergies Sulfa (Sulfonamide Antibiotics) Allergy (Verified 07/14/22 13:21) Nausea/Vomiting sulfamethoxazole [From Bactrim] Allergy (Verified 07/14/22 13:21) Nausea/Vomiting tetracycline Allergy (Verified 07/14/22 13:21) Nausea/Vomiting trimethoprim [From Bactrim] Allergy (Verified 07/14/22 13:21) Nausea/Vomiting Home Medications: Albuterol Sulfate [Proair Digihaler] 2 puff IH Q6H PRN 07/24/22 Chlorhexidine 0.12% [Periogard*] 1 dose PO BID 07/24/22 Chlorhexidine 4% [Betasept*] 1 radha TOP DAILY 07/24/22 Fish Oil/Dha/Epa [Fish Oil 1,200 mg Fish Oil] 1 tab PO DAILY 07/24/22 Furosemide 1 tab PO DAILY 07/24/22 Gabapentin 1 tab PO QID 07/24/22 Glipizide [Glipizide Xl] 1 tab PO DAILY 07/24/22 Hydrocodone Bit/Acetaminophen [Hydrocodon-Acetaminoph 7.5-325] 1 tab PO Q6H PRN 07/24/22 Loxitane 1 tab PO DAILY 07/24/22 Metformin HCl 1 tab PO TID 07/24/22 Mupirocin Cream [Bactroban 2% Cream*] 1 dose TOP TID 07/24/22 NIFEdipine [Nifedipine ER] 1 tab PO BID 07/24/22 Quinapril HCl 1 tab PO DAILY 07/24/22 Spironolactone 1 tab PO BID 07/24/22 Venlafaxine HCl [Venlafaxine HCl ER] 1 tab PO DAILY 07/24/22 clonazePAM [Klonopin] 1 mg PO TID 07/24/22 Collagenase [Santyl Ointment*] 1 appl TOP DAILY #1 tube 07/30/22 Loxapine [Adasuve] 100 mg PO BEDTIME 08/14/22 Tizanidine [Zanaflex*] 4 mg PO PRN 08/14/22 carvediloL [Coreg*] 6.25 mg PO BID #60 tab 08/29/22 - Past Medical/Surgical History Diabetic: Yes -: pancreatitis -: DM -: depression -: anxiety -: Kidney stones -: HTN -: COPD -: glaucoma -: cholecystectomy -: C-sections -: Back -: Hysterectomy Psychosocial/ Personal History: Patient lives at home with family - Family History Father -: Heart disease, Hypertension, Diabetes Mother -: Heart disease, Hypertension Sister -: Cancer - Social History Alcohol use: No CD- Drugs: No Caffeine use: Yes Review of Systems 10-point ROS is otherwise unremarkable Physical Examination - Vital Signs Temperature: 98.1 F Blood Pressure: 132/53 Pulse: 99 Respirations: 18 Pulse Ox (%): 93 - Physical Exam General: Alert, In no apparent distress HEENT: Atraumatic, Normocephalic, PERRLA Neck: Supple Respiratory: Clear to auscultation bilaterally Cardiovascular: No edema, Normal pulses Capillary refill: <2 Seconds Gastrointestinal: Normal bowel sounds Musculoskeletal: No clubbing Integumentary: No rashes Neurological: Normal speech Lymphatics: No axilla or inguinal lymphadenopathy Assessment and Plan - Plan Assessment Osteomyelitis of left foot Diabetes type 2 COPD Plan -PICC line placement tomorrow -Continue neb treatment with albuterol\Atrovent, steroids and O2 therapy. -Blood sugars before meals and at bedtime with sliding scale insulin -Resume home hypertensive medication when appropriate -Continue home medications -DVT PPX- Lovenox -Code Status- Full code Discharge Plan: Home Plan to discharge in: 48 Hours - Advance Directives Does patient have a Living Will: No Does patient have a Durable POA for Healthcare: No - Code Status/Comfort Care Code Status Assessed: Yes (Full code) Critical Care: No Time Spent Managing Pts Care (In Minutes): 50
[2022-09-04] MEDS ORDERED: ONDANSETRON 4 MG/2 ML VIAL IV PRN (13:36)
[2022-09-04] MEDS ORDERED: ACETAMINOPHEN 500 MG TAB PO PRN (13:36)
[2022-09-04] MEDS ORDERED: clonazePAM 1 MG TAB PO PRN (13:41)
[2022-09-04 13:46] LABS: SARS-CoV-2 Antigen Rapid Res Negative (Negative)
[2022-09-04 14:27] VITALS: BMI 39.3
[2022-09-04 15:36] VITALS: O2SAT 93
[2022-09-04] MEDS: INSULIN -REGULAR HUMAN 50 UNIT/0.5 ML ML SQ SCH ×2 (16:18→21:00)
[2022-09-04 19:22] LABS: Urine Bacteria None Seen /HPF (<20); Urine Bilirubin NEGATIVE (Negative); Urine Blood 1+ (Negative); Urine Clarity Clear (Clear); Urine Color Colorless (Yellow); Urine Glucose NEGATIVE (Negative); Urine Mucus Slight /HPF (None Seen); Urine Protein TRACE (Negative); Urine RBC <5 /HPF (None Seen); Urine Urobilinogen Normal (Normal); Urine pH 6.5 (5.0-7.0)
[2022-09-04] MEDS: GABAPENTIN 300 MG CAP PO SCH (21:00)
[2022-09-04] MEDS: carvediloL 6.25 MG TAB PO SCH (21:00)
[2022-09-05 01:04] LABS: Absolute Lymphocytes (CBC) 2.4 K/uL (0.7-4.9); Hematocrit 27.8 % (36.0-45.0); Lymphocytes % 19.6 % (15.3-44.8); MCV 75.7 fL (80-100); MPV 8.1 fL (7.6-11.3); RBC Red Blood Cell Count 3.67 M/uL (3.86-4.86)
[2022-09-05 01:15] LABS: Potassium 3.1 mmol/L (3.5-5.1)
[2022-09-05 01:48] LABS: Anisocytosis 2+; Blood Morphology Comment NOTED (NOT SEEN); Macrocytosis 1+; Platelet Estimate INCR; Polychromasia SLIGHT
[2022-09-05 01:49] LABS: Ovalocytes 1+
[2022-09-05] MEDS ORDERED: DAPTOmycin 500 MG in NA CHLORIDE 0.9% 100 ML IVPB SCH ×2 (07:00→08:00)
[2022-09-05] MEDS ORDERED: VANCOMYCIN 2 GM in NA CHLORIDE 0.9% 500 ML IVPB SCH (07:00)
[2022-09-05] MEDS: INSULIN -REGULAR HUMAN 50 UNIT/0.5 ML ML SQ SCH (07:30)
[2022-09-05 08:30] VITALS: BP 146/68; TEMP 97.8
[2022-09-05] MEDS ORDERED: ENOXAPARIN 40 MG/0.4 ML SQ SCH (09:00)
[2022-09-05] MEDS ORDERED: FUROSEMIDE 40 MG TABLET PO SCH (09:00)
[2022-09-05] MEDS: GABAPENTIN 300 MG CAP PO SCH (09:29)
[2022-09-05] MEDS: carvediloL 6.25 MG TAB PO SCH (09:30)
[2022-09-05] MEDS ORDERED: Meropenem 1,000 MG in NA CHLORIDE 0.9% 100 ML IV SCH (11:00)
--- NOTE | 2022-09-05 15:40 | RAD REPORT ---
EXAM DESCRIPTION: XR CHEST 1 VIEW CLINICAL HISTORY: PICC line COMPARISON: None. TECHNIQUE: XR CHEST 1 VIEW 09/05/2022 2:56 AM NUTRITION SERVICES MANAGER FINDINGS: The heart is enlarged. There are moderate interstitial opacities throughout both lungs. Th ere is no pleural effusion. There is no pneumothorax. There are no acute osseous findings. Right PICC line tip is in the cavoatrial junction. IMPRESSION: Right PICC line tip at the cavoatrial junction. Electronically signed by: Irving Rosado MD 09/05/2022 6:13 AM NUTRITION SERVICES MANAGER Due to temporary technical issues with the PACS/Fluency reporting system, reports are being signed by the in house radiologists without review as a courtesy to insure prompt reporting. The interpreting radiologist is fully responsible for the content of the report.
--- NOTE | 2022-09-07 22:07 | P.DS ---
Admission Date: 09/04/22 Discharge Date: 09/05/22 Disposition: ROUTINE DISCHARGE Reason for Admission: Accidental PICC line removal Brief History of Present Illness: 62-year-old female with a past medical history significant for COPD, hypertension, DM 2. Patient presents to the emergency room with complaints of accidentally removing her PICC line. Patient was evaluated in ED, with at the bedside. Per patient and they do not know how the PICC line was removed. Patient states that she noticed the PICC line was sitting on the side of her chair. Patient is currently on daptomycin and another antibiotic at home treatment for a left foot wound. Patient will be admitted under observation for the placement of a PICC line. Hospital Course: Problem List Osteomyelitis of left foot Diabetes type 2, non-insulin dependent COPD Patient presented to ED after accidental PICC line removal. This was recently placed for long-term antibiotics for left foot osteomyelitis. Patient was admitted to the hospital and treated with IV antibiotics until a PICC line was able to be placed. She was subsequently discharged back home to resume home health and IV antibiotics via new PICC line. Vital Signs/Physical Exam: Temp Pulse Resp BP Pulse Ox 97.8 F 87 16 146/68 H 90 L 09/05/22 08:00 09/05/22 09:30 09/05/22 08:00 09/05/22 09:30 09/05/22 08:00 General: Alert, In no apparent distress, Oriented x3 HEENT: EOMI, Sclerae nonicteric Respiratory: Clear to auscultation bilaterally, Normal air movement Cardiovascular: No edema, Regular rate/rhythm Gastrointestinal: Soft and benign, Non-distended, No tenderness Musculoskeletal: No contractures, No tenderness Integumentary: No rashes, No significant lesion Neurological: Normal speech, Normal strength at 5/5 x4 extr, Normal affect Laboratory Data at Discharge: WBC Cancelled 09/05/22 05:00 Hgb Cancelled 09/05/22 05:00 Hct Cancelled 09/05/22 05:00 Plt Count Cancelled 09/05/22 05:00 Sodium 142 mmol/L (136-145) 09/05/22 00:50 Potassium 3.1 mmol/L (3.5-5.1) L 09/05/22 00:50 BUN 15 mg/dL (7-18) 09/05/22 00:50 Creatinine 0.85 mg/dL (0.55-1.02) 09/05/22 00:50 Glucose 98 mg/dL (74-106) 09/05/22 00:50 Home Medications: Albuterol Sulfate [Proair Digihaler] 2 puff IH Q6H PRN 07/24/22 Chlorhexidine 0.12% [Periogard*] 1 dose PO BID 07/24/22 Chlorhexidine 4% [Betasept*] 1 radha TOP DAILY 07/24/22 Fish Oil/Dha/Epa [Fish Oil 1,200 mg Fish Oil] 1 tab PO DAILY 07/24/22 Furosemide 1 tab PO DAILY 07/24/22 Gabapentin 1 tab PO QID 07/24/22 Glipizide [Glipizide Xl] 1 tab PO DAILY 07/24/22 Hydrocodone Bit/Acetaminophen [Hydrocodon-Acetaminoph 7.5-325] 1 tab PO Q6H PRN 07/24/22 Loxitane 1 tab PO DAILY 07/24/22 Metformin HCl 1 tab PO TID 07/24/22 Mupirocin Cream [Bactroban 2% Cream*] 1 dose TOP TID 07/24/22 NIFEdipine [Nifedipine ER] 1 tab PO BID 07/24/22 Quinapril HCl 1 tab PO DAILY 07/24/22 Spironolactone 1 tab PO BID 07/24/22 Venlafaxine HCl [Venlafaxine HCl ER] 1 tab PO DAILY 07/24/22 clonazePAM [Klonopin] 1 mg PO TID 07/24/22 Collagenase [Santyl Ointment*] 1 appl TOP DAILY #1 tube 07/30/22 Loxapine [Adasuve] 100 mg PO BEDTIME 08/14/22 Tizanidine [Zanaflex*] 4 mg PO PRN 08/14/22 carvediloL [Coreg*] 6.25 mg PO BID #60 tab 08/29/22 Followup: Jefferson Witt MD [Primary Care Provider] - Time spent managing pt's care (in minutes): 45
== END 2022-09-05 12:11 | disposition home health service (06) ==
LOC: ER 10:46 → ERHOLD 13:09 → 2ND 15:01
PROVIDERS: ADMIT Hospitalist; ATTEND Hospitalist
DX: T82.524A Displacement of infusion catheter, initial encounter (principal); M86.9 Osteomyelitis, unspecified; S91.302A Unspecified open wound, left foot, initial encounter; E11.9 Type 2 diabetes mellitus without complications; J44.9 Chronic obstructive pulmonary disease, unspecified; Z20.822 Contact with and (suspected) exposure to COVID-19
CPT/HCPCS: 36569; 85025; 81001; 80048; 36415; 82947 ×3; 80202; 71045; 99285; 87811; J1650; J0878; J2185; G0378; J3370; J7040

== ENCOUNTER 2023-09-22 09:48 | Inpatient (IN) | payer OTHER ==
[2023-09-22] MEDS ORDERED: NA CHLORIDE 0.9% 100 ML ONE (10:29)
[2023-09-22] MEDS ORDERED: CEFEPIME 2 GM VIAL ONE (10:29)
[2023-09-22] MEDS ORDERED: NA CHLORIDE 0.9% 250 ML ONE (10:29)
[2023-09-22] MEDS ORDERED: VANCOMYCIN 1 GM/VIAL ONE (10:29)
[2023-09-22 10:36] LABS: Absolute Lymphocytes (CBC) 2.3 K/uL (0.7-4.9); Hematocrit 32.3 % (36.0-45.0); MCV 72.6 fL (80-100); MPV 8.6 fL (7.6-11.3); Platelets 275 thou/uL (152-406); RBC Red Blood Cell Count 4.44 M/uL (3.86-4.86)
[2023-09-22 10:51] LABS: Albumin 3.4 g/dL (3.4-5.0); Bilirubin Total 0.4 mg/dL (0.2-1.0); Potassium 4.3 mEq/L (3.5-5.1); Protein, Total 7.4 g/dL (6.4-8.2)
--- NOTE | 2023-09-22 10:58 | RAD REPORT ---
EXAM DESCRIPTION: RAD - Foot Left 3 View - 09/22/2023 10:50 am CLINICAL HISTORY: infection Pain and swelling COMPARISON: Foot Left 3 View dated 08/13/2022; Foot Left 3 View dated 07/23/2022; Ankle Left Wo Cont dated 02/27/2023 FINDINGS: Significant flattening and sclerosis of the calcaneus inferiorly likely represents chronic osteomyelitis. There is diffuse osteopenia is seen. Calcaneal spurs are present. No acute fracture o r dislocation.
[2023-09-22] MEDS ORDERED: NA CHLORIDE 0.9% 1,000 ML ONE ×2 (11:00→13:43)
--- OUTSIDE RECORDS SUMMARY | 2023-09-22 11:03 | XMS REPORT | Continuity of Care Document ---
Author Name Unknown Address [address] [facility] [address] [place] [address] [facility] Address [address] [facility] [place] [address] Care Team Providers Care Masonry Contractor Administrator Name Role Phone Jefferson Witt MD Primary Care Physician [phone] BISI CARDOSO Attending Clinician Unavail able GIOVANY ANTOINE Attending Clinician UnavailJEFFERSON Andujar Attending Clinician Unavailable Jefferson Witt MD Attending Clinician [phone] NORA VENTURA Attending Clinician Unavai lable Lab, Ang - Db Attending Clinician Unavailable Nora Ventura MD Attending Clinician + [phone] ROSETTE CONTRERAS Attending Clinician Unavailable Giovany Antoine MD Attending Clinician [phone] Ana Riddle MD Attending Clinician [phone] Unknown, Attending Attending Clinician UnavailANA Flores Attending Clinician Unavailable Doctor Unassigned, Tool Attending Clinician U CARLA Mora Attending Clinician Unavailable CARLA VELASCO Attending Clinician Unavailable JOSSE LEYVA Attending Clinician Unavailable Pob, [facility] Main Attending Clinician Unavailjayson Freire RN, Alana Prabhakar Attending Clinician Kimberly vailable Fer, Suma X Attending Clinician Unavaila ble Ebrahim ATMOSPHERIC SCIENCES PROFESSOR, Richard Attending Clinician [phone] RICHARD VIDAL Attending Clinician Unavailable NOEMI WATIE Attending Clinician Unavailable Cande LAURA, Daniel Attending Clinician [phone] Jonn ATMOSPHERIC SCIENCES PROFESSOR, Claudia Ballesteros Attending Clinician [phone] DANIEL CASTELLON Attending Clinician Unavailable Marylou Borrego Attending Clinician Unavailjayson PORTER, CLAUDIA Ballesteros Attending Clinician Unavailable Rosette Markham Attending Clinician [phone] ION HOBBS Attending Clinician Kimberly RACHELL Bruce Attending Clinician Unavaila RACHELL Boss Attending Clinician Unavaila susanne Weems RN, Oleg R Attending Clinician UnavailJESUS Smith Attending Clinician Unavailable Jesus Spain MD Attending Clinician [phone] Rachell Ahmadi MD Attending Clinician + [phone] [facility] Sleep Lab Attending Clinician Unavaila ble 2, [facility] Lab Attending Clinician Unavailable DAYLIN MOJICA Attending Clinician Unavailable Daylin Mojica NP Attending Clinician [phone] [facility], [facility] Attending Clinicia n Unavailable ARMINDA VEGA Attending Clinician Unavailable Noemi Christian Attending Clinician [phone] DILAN LOVE Attending Clinician UnavailDilan Harkins MD Attending Clinician [phone] MARYLOU GAMINO Attending Clinician Unavailable PRAVEEN SAGE Attending Clinician Unavailable Praveen Shipman Attending Clinician + [phone] Audrey OCONNOR, Sendil K.H. Attending Clinician + [phone] AUDREY SENDLISA K.H. Attending Clinician Unavaila ble Only, [facility] Test Attending Clinician Unavailable Maryam Mckeon MD Attending Clinician [phone] MARYAM MCKEON Attending Clinician UnavailROBBIE Kiran Attending Clinician Unavailable Nurse, [facility] Pob Immunization Attending Clinician Unavailable Severo Lara DO Attending Clinician [phone] SEVERO LARA Attending Clinician Unavail able Linda CHONG, Elizabeth Ballesteros Attending Clinician Unavail able CHERYLE SILVA Attending Clinician Unavailable Trever OCONNOR, Cheryle Attending Clinician [phone] Derek ATMOSPHERIC SCIENCES PROFESSOR, Doron Attending Clinician + [phone] DORON WEINSTEIN Attending Clinician Unavailabl e Anene ATMOSPHERIC SCIENCES PROFESSOR, Josse Attending Clinician [phone] Provider, [facility] Attending Clinician Un available Alberto ATMOSPHERIC SCIENCES PROFESSOR, Romi Koch Attending Clinician + [phone] Lia CHONG, Araceli Black Attending Clinician Unavailab JAYASHREE Schmidt Attending Clinician Unavailab guy Mullins DO, Jayashree Koch Attending Clinician [phone] Attending Clinician Unavailable Davi OCONNOR, Bisi Ordaz Attending Clinician [phone] Yaneli Rocha RN Attending Clinician Unavailable , [facility] Echo Room 1 - Attending Clinician Christopher Coronado MD, Robbie Attending Clinician [phone] Visit, [facility] Nurse Attending Clinician Unavailable Gramm ATMOSPHERIC SCIENCES PROFESSOR, Sandy A Attending Clinician [phone] GRAMM, SANDY A Attending Clinician Unavailable [facility], [facility] Fam Pob I Attending Clinician Unavailab guy Sanders [facility] Attending Clinician [phone] Pob1, [facility] Attending Clinician Unav Keila Sauceda MD Attending Clinician [phone] KEILA DELCID Attending Clinician Unavailable Kim CHONG, Ciara Attending Clinician Unavailable BISI CARDOSO Admitting Clinician Unavail able [facility] [place] Admitting Clinician Unavaila JESUS Arita Admitting Clinician Unavailable JEFFERSON WITT Admitting Clinician Unavailable BRIAN VENTURA Admitting Clinician UnavailCHERYLE Kim Admitting Clinician Unavailable Trever OCONNOR, Cheryle Admitting Clinician [phone] Bisi Cardoso MD Admitting Clinician [phone] KEILA DELCID Admitting Clinician Unavailable Payers Payer Name Policy Type Policy Number Effective Date Expirati on Date Source [employer] MEDICARE [id number] 2019 00:00:00 MEDICARE PART A \\T\\ B [id number] 2021 00:00:00 2021 00:00:00 [facility] [id number] 2021 00:00:00 2021 00:00:00 Problems Condition Name Condition Details Condition Category Status Onset Date Resolution Date Last Treatment Date Treating Clinician Comments Source Yeast infection of the skin Yeast infection of the skin Disease Active 12-22 00:00: 00 [facility] VERNON (obstructi ve sleep apnea) VERNON (obstructi ve sleep apnea) Disease Active 2021-08 00:00: 00 [facility] Chest pain Chest pain Disease Active 2020-08 00:00: 00 [facility] Morbid obesity Morbid obesity Disease Active 2020-08 0 00:00: 00 [facility] Chronic atrial fibrillati on Chronic atrial fibrillati on Disease Active 2020-08 0 00:00: 00 [facility] ICD (implantab le cardiovert er-defibri llator) in place ICD (implantab le cardiovert er-defibri llator) in place Disease Active 2020-08 00:00: 00 [facility] Abnormal serum level of lipase Abnormal serum level of lipase Disease Active 2020-08 0 00:00: 00 [facility] Leg edema Leg edema Disease Active 2020-08 0 00:00: 00 [facility] Calculus of gallbladde r without cholecysti tis without obstructio n Calculus of gallbladde r without cholecysti tis without obstructio n Disease Active 2019-08-18 00:00: 00 Overview: Formattin g of this note might be different from the original. Added automatic ally from request for surgery [id number] [facility] Neuropathy Neuropathy Disease Active 04-24 00:00: 00 [facility] Bronchitis Bronchitis Disease Active 11-22 00:00: 00 [facility] SOB (shortness of breath) SOB (shortness of breath) Disease Active 11-22 00:00: 00 [facility] Fever in adult Fever in adult Disease Active 11-22 00:00: 00 [facility] Tobacco dependence Tobacco dependence Disease Active 11-22 00:00: 00 [facility] Obesity Obesity Disease Active 04-23 00:00: 00 [facility] Low back pain Low back pain Disease Active 04-23 00:00: 00 [facility] Anxiety Anxiety Disease Active 01-24 00:00: 00 [facility] Type 2 diabetes mellitus Type 2 diabetes mellitus Disease Active 01-13 00:00: 00 [facility] Hyperlipid emia with target LDL less than 100 Hyperlipid emia with target LDL less than 100 Disease Active 01-13 00:00: 00 [facility] Essential hypertensi on Essential hypertensi on Disease Active 01-13 00:00: 00 [facility] Right knee pain Right knee pain Disease Active 12-31 00:00: 00 [facility] Right knee pain Right knee pain Disease Active 12-31 00:00: 00 [facility] Allergies, Adverse Reactions, Alerts Allergy Name Allergy Type Status Severity Reaction(s) Onset Date Inactive Date Treating Clinician Comments Source Glipizid e Propensi ty to adverse reaction s Active Rash 12-26 00:00: 00 Rash on head, back [facility] GLIPIZID E DRUG INGREDI Active Rash 12-26 00:00: 00 [facility] Clindamy kaylan Propensi ty to adverse reaction s Active Nausea and/or Vomiting 2017-08 00:00: 00 [facility] CLINDAMY KAYLAN DRUG INGREDI Active N/V 2017-08 00:00: 00 [facility] SULFAMET HOXAZOLE -TRIMETH OPRIM DRUG Active N/V 2016-08 00:00: 00 [facility] Sulfamet hoxazole -Trimeth oprim Drug Allergy Active Nausea and/or Vomiting 2017-1 1-15 00:00: 00 Other reaction( s): vomiting [facility] Sulfa (Sulfona mide Antibiot ics) Propensi ty to adverse reaction s Active Rash 02-12 00:00: 00 [facility] Tetracyc lines Propensi ty to adverse reaction s Active Rash 02-12 00:00: 00 [facility] SULFA (SULFONA MIDE ANTIBIOT ICS) Drug Class Active Rash 02-12 00:00: 00 [facility] TETRACYC LINES Drug Class Active Rash 02-12 00:00: 00 [facility] Tetracyc lines Propensi ty to adverse reaction s Active Rash 02-12 00:00: 00 [facility] Sulfa (Sulfona mide Antibiot ics) Drug Allergy Active Rash 02-12 00:00: 00 Other reaction( s): itching, vomitingO ther reaction( s): itching, vomiting [facility] Social History Social Habit Start Date Stop Date Quantity Comments Source History of tobacco use Cigarette Smoker [facility] Alcohol intake 2023-07-28 00:00:00 2023-07-28 00:00:00 0 /d [facility] History of Social function 2023-02-11 00:00:00 2023-02-11 00:00:00 [facility] Exposure to SARS-CoV-2 (event) 2022-12-12 00:00:00 2022-12-22 07:53:00 Not sure [facility] Cigarettes smoked current (pack per day) - Reported 2022-06-04 00:00:00 2022-06-04 00:00:00 [facility] Cigarette pack-years 2022-06-04 00:00:00 2022-06-04 00:00:00 [facility] Tobacco use and exposure 2022-06-04 00:00:00 2022-06-04 00:00:00 User of smokeless tobacco [facility] Sex Ass[birth year] At 1960 00:00:00 1960 00:00:00 [facility] Smoking Status Start Date Stop Date Source Smokes tobacco daily 2022-06-04 00:00:00 [facility] Medications Ordered Medication Name Filled Medication Name Start Date Stop Date Current Medication? Ordering Clinician Indication Dosage Frequency Signature (SIG) Comments Components Source spironolact one 25 mg tablet 09-15 00:00: 00 Yes [id number] 25mg Take 1 tablet by mouth every morning and evening. [facility] spironolact one 25 mg tablet 09-15 00:00: 00 Yes [id number] 25mg Take 1 tablet by mouth every morning and evening. [facility] AMLODIPINE 10 mg tablet 09-11 00:00: 00 Yes [id number] 10mg TAKE 1 TABLET BY MOUTH IN THE MORNING [facility] AMLODIPINE 10 mg tablet 09-11 00:00: 00 Yes [id number] 10mg TAKE 1 TABLET BY MOUTH IN THE MORNING [facility] blood sugar diagnostic (TRUE METRIX GLUCOSE TEST STRIP) strip 09-11 00:00: 00 Yes [id number] USE DIRECTED TO CHECK BLOOD SUGAR FOUR TIMES DAILY [facility] AMLODIPINE 10 mg tablet 09-11 00:00: 00 Yes [id number] 10mg TAKE 1 TABLET BY MOUTH IN THE MORNING [facility] blood sugar diagnostic (TRUE METRIX GLUCOSE TEST STRIP) strip 09-11 00:00: 00 Yes [id number] USE DIRECTED TO CHECK BLOOD SUGAR FOUR TIMES DAILY [facility] AMLODIPINE 10 mg tablet 09-11 00:00: 00 Yes [id number] 10mg TAKE 1 TABLET BY MOUTH IN THE MORNING [facility] blood sugar diagnostic (TRUE METRIX GLUCOSE TEST STRIP) strip 09-11 00:00: 00 Yes [id number] USE DIRECTED TO CHECK BLOOD SUGAR FOUR TIMES DAILY [facility] clonazePAM 1 mg tablet 09-02 00:00: 00 Yes [id number] TAKE 1 TABLET BY MOUTH FOUR TIMES DAILY NEEDED FOR PANIC [facility] clonazePAM 1 mg tablet 09-02 00:00: 00 Yes [id number] TAKE 1 TABLET BY MOUTH FOUR TIMES DAILY NEEDED FOR PANIC [facility] clonazePAM 1 mg tablet 09-02 00:00: 00 Yes [id number] TAKE 1 TABLET BY MOUTH FOUR TIMES DAILY NEEDED FOR PANIC [facility] clonazePAM 1 mg tablet 09-02 00:00: 00 Yes [id number] TAKE 1 TABLET BY MOUTH FOUR TIMES DAILY NEEDED FOR PANIC [facility] clonazePAM 1 mg tablet 09-02 00:00: 00 Yes [id number] TAKE 1 TABLET BY MOUTH FOUR TIMES DAILY NEEDED FOR PANIC [facility] clonazePAM 1 mg tablet 09-02 00:00: 00 Yes [id number] TAKE 1 TABLET BY MOUTH FOUR TIMES DAILY NEEDED FOR PANIC [facility] CHLORHEXIDI NE 0.12 % mouthwash 0 08-19 00:00: 00 Yes [id number] SWISH AND SPIT 15 ML BY MOUTH TWICE DAILY [facility] CHLORHEXIDI NE 0.12 % mouthwash 0 08-19 00:00: 00 Yes [id number] SWISH AND SPIT 15 ML BY MOUTH TWICE DAILY [facility] CHLORHEXIDI NE 0.12 % mouthwash 0 08-19 00:00: 00 Yes [id number] SWISH AND SPIT 15 ML BY MOUTH TWICE DAILY [facility] CHLORHEXIDI NE 0.12 % mouthwash 0 08-19 00:00: 00 Yes [id number] SWISH AND SPIT 15 ML BY MOUTH TWICE DAILY [facility] CHLORHEXIDI NE 0.12 % mouthwash 0 08-19 00:00: 00 Yes [id number] SWISH AND SPIT 15 ML BY MOUTH TWICE DAILY [facility] CHLORHEXIDI NE 0.12 % mouthwash 0 08-19 00:00: 00 Yes [id number] SWISH AND SPIT 15 ML BY MOUTH TWICE DAILY [facility] CHLORHEXIDI NE 0.12 % mouthwash 0 17 00:00: 00 Yes [id number] SWISH AND SPIT 15 ML BY MOUTH TWICE DAILY [facility] TIZANIDINE 4 mg tablet 2023-0 08-10 00:00: 00 Yes [id number] TAKE 1 TABLET BY MOUTH EVERY 8 HOURS [facility]ED [facility] 24 hr tablet 2023-0 08-10 00:00: 00 Yes [id number] 5mg TAKE 1 TABLET BY MOUTH DAILY WITH BREAKFAST [facility] TIZAN[facility]INE 4 mg tablet 2023-0 08-10 00:00: 00 Yes [id number] TAKE 1 TABLET BY MOUTH EVERY 8 HOURS NEEDED [facility] GLIP[facility] XL 5 mg 24 hr tablet 2023-0 08-10 00:00: 00 Yes [id number] 5mg TAKE 1 TABLET BY MOUTH DAILY WITH BREAKFAST [facility] TIZANIDINE 4 mg tablet 2023-0 08-10 00:00: 00 Yes [id number] TAKE 1 TABLET BY MOUTH EVERY 8 HOURS NEEDED [facility] GLIP[facility] 5 mg 24 hr tablet 0 08-10 00:00: 00 Yes [id number] 5mg TAKE 1 TABLET BY MOUTH DAILY WITH BREAKFAST [facility] TIZANIDINE 4 mg tablet 2023-0 08-10 00:00: 00 Yes [id number] TAKE 1 TABLET BY MOUTH EVERY 8 HOURS NEEDED [facility] GLIPIZIDE XL 5 mg 24 hr tablet 2023-0 08-10 00:00: 00 Yes [id number] 5mg TAKE 1 TABLET BY MOUTH DAILY WITH BREAKFAST [facility] T[facility] 4 mg tablet 2023-0 08-10 00:00: 00 Yes [id number] TAKE 1 TABLET BY MOUTH EVERY 8 HOURS NEEDED [facility] GLIPIZIDE XL 5 mg 24 hr tablet 2023-0 08-10 00:00: 00 Yes [id number] 5mg TAKE 1 TABLET BY MOUTH DAILY WITH BREAKFAST [facility] TIZANIDINE 4 mg tablet 2023-0 08-10 00:00: 00 Yes [id number] TAKE 1 TABLET BY MOUTH EVERY 8 HOURS NEEDED [facility] GLIPIZIDE XL 5 mg 24 hr tablet 2023-0 08-10 00:00: 00 Yes [id number] 5mg TAKE 1 TABLET BY MOUTH DAILY WITH BREAKFAST [facility] TIZANIDINE 4 mg tablet 2023-0 08 00:00: 00 Yes [id number] TAKE 1 TABLET BY MOUTH EVERY 8 HOURS NEEDED [facility] GLIP[facility] 5 mg 24 hr tablet 2023-0 08-10 00:00: 00 Yes [id number] 5mg TAKE 1 TABLET BY MOUTH DAILY WITH BREAKFAST [facility] TIZANIDINE 4 mg tablet 2023-0 08-10 00:00: 00 Yes [id number] TAKE 1 TABLET BY MOUTH EVERY 8 HOURS NEEDED [facility] GLIP[facility] XL 5 mg 24 hr tablet 2023-0 08-10 00:00: 00 Yes [id number] 5mg TAKE 1 TABLET BY MOUTH DAILY WITH BREAKFAST [facility] TIZANIDINE 4 mg tablet 2023-0 08-10 00:00: 00 Yes [id number] TAKE 1 TABLET BY MOUTH EVERY 8 HOURS NEEDED [facility] GLIP[facility] XL 5 mg 24 hr tablet 0 08-10 00:00: 00 Yes [id number] 5mg TAKE 1 TABLET BY MOUTH DAILY WITH BREAKFAST [facility] TIZANIDINE 4 mg tablet 2023-0 08-10 00:00: 00 Yes [id number] TAKE 1 TABLET BY MOUTH EVERY 8 HOURS NEEDED [facility] clonazePAM 1 mg tablet 2023-0 08-05 00:00: 00 Yes [id number] TAKE 1 TABLET BY MOUTH FOUR TIMES DAILY NEEDED FOR PANIC [facility] clonazePAM 1 mg tablet 2023-0 - 00:00: 00 Yes [id number] TAKE 1 TABLET BY MOUTH FOUR TIMES DAILY NEEDED FOR PANIC [facility] clonazePAM 1 mg tablet 2023-0 08-05 00:00: 00 Yes [id number] TAKE 1 TABLET BY MOUTH FOUR TIMES DAILY NEEDED FOR PANIC [facility] clonazePAM 1 mg tablet 2023-0 - 00:00: 00 Yes [id number] TAKE 1 TABLET BY MOUTH FOUR TIMES DAILY NEEDED FOR PANIC [facility] tablet 2023-0 - 00:00: 00 Yes [id number] TAKE 1 TABLET BY MOUTH FOUR TIMES DAILY NEEDED FOR PANIC [facility] clonazePAM 1 mg tablet 2023-0 -03 00:00: 00 09-02 00:00 :00 No [id number] TAKE 1 TABLET BY MOUTH FOUR TIMES DAILY NEEDED FOR PANIC [facility] gabapentin 300 mg capsule 2022-1 - 00:00: 00 Yes [id number] TAKE 1 CAPSULE BY MOUTH FOUR TIMES DAILY [facility] gabapentin 300 mg capsule 2022-1 - 00:00: 00 Yes [id number] TAKE 1 CAPSULE BY MOUTH FOUR TIMES DAILY [facility] gabapentin 300 mg capsule 2022-1 - 00:00: 00 Yes [id number] TAKE 1 CAPSULE BY MOUTH FOUR TIMES DAILY [facility] gabapentin 300 mg capsule 2022-08 04- 00:00: 00 Yes [id number] TAKE 1 CAPSULE BY MOUTH FOUR TIMES DAILY [facility] gabapentin 300 mg capsule 2022-1 - 00:00: 00 Yes [id number] TAKE 1 CAPSULE BY MOUTH FOUR TIMES DAILY [facility] gabapentin 300 mg capsule 2022-1 - 00:00: 00 Yes [id number] TAKE 1 CAPSULE BY MOUTH FOUR TIMES DAILY [facility] gabapentin 300 mg capsule 2022-1 - 00:00: 00 Yes [id number] TAKE 1 CAPSULE BY MOUTH FOUR TIMES DAILY [facility] gabapentin 300 mg capsule 2022-1 - 00:00: 00 Yes [id number] TAKE 1 CAPSULE BY MOUTH FOUR TIMES DAILY [facility] gabapentin 300 mg capsule 2022-1 - 00:00: 00 Yes [id number] TAKE 1 CAPSULE BY MOUTH FOUR TIMES DAILY [facility] gabapentin 300 mg capsule 2022-1 - 00:00: 00 Yes [id number] TAKE 1 CAPSULE BY MOUTH FOUR TIMES DAILY [facility] gabapentin 300 mg capsule 2022-1 - 00:00: 00 Yes [id number] TAKE 1 CAPSULE BY MOUTH FOUR TIMES DAILY [facility] gabapentin 300 mg capsule 2022-1 - 00:00: 00 Yes [id number] TAKE 1 CAPSULE BY MOUTH FOUR TIMES DAILY [facility] gabapentin 300 mg capsule [id number] 00:00: 00 Yes [id number] TAKE 1 CAPSULE BY MOUTH FOUR TIMES DAILY [facility] maalox/diph enhydrAMINE :lidocaine2 % viscous 1:1:1 Susp suspension 2022-08 00:00: 00 Yes [id number] 5mL Take 5 mL by mouth 3 (three) times daily as needed (gargle and spit). [facility] maalox/diph enhydrAMINE :lidocaine2 % viscous 1:1:1 Susp suspension 2022-08 00:00: 00 Yes [id number] 5mL Take 5 mL by mouth 3 (three) times daily as needed (gargle and spit). [facility] maalox/diph enhydrAMINE :lidocaine2 % viscous 1:1:1 Susp suspension 2022-08 00:00: 00 Yes [id number] 5mL Take 5 mL by mouth 3 (three) times daily as needed (gargle and spit). [facility] maalox/diph enhydrAMINE :lidocaine2 % viscous 1:1:1 Susp suspension 2022-08 00:00: 00 Yes [id number] 5mL Take 5 mL by mouth 3 (three) times daily as needed (gargle and spit). [facility] maalox/diph enhydrAMINE :lidocaine2 % viscous 1:1:1 Susp suspension 2022-08 00:00: 00 Yes [id number] 5mL Take 5 mL by mouth 3 (three) times daily as needed (gargle and spit). [facility] maalox/diph enhydrAMINE :lidocaine2 % viscous 1:1:1 Susp suspension 2022-08 00:00: 00 Yes [id number] 5mL Take 5 mL by mouth 3 (three) times daily as needed (gargle and spit). [facility] maalox/diph enhydrAMINE :lidocaine2 % viscous 1:1:1 Susp suspension 2022-08 00:00: 00 Yes [id number] 5mL Take 5 mL by mouth 3 (three) times daily as needed (gargle and spit). [facility] maalox/diph enhydrAMINE :lidocaine2 % viscous 1:1:1 Susp suspension 2022-08 00:00: 00 Yes [id number] 5mL Take 5 mL by mouth 3 (three) times daily as needed (gargle and spit). [facility] maalox/diph enhydrAMINE :lidocaine2 % viscous 1:1:1 Susp suspension 2022-08 00:00: 00 Yes [id number] 5mL Take 5 mL by mouth 3 (three) times daily as needed (gargle and spit). [facility] maalox/diph enhydrAMINE :lidocaine2 % viscous 1:1:1 Susp suspension 2022-08 00:00: 00 Yes [id number] 5mL Take 5 mL by mouth 3 (three) times daily as needed (gargle and spit). [facility] maalox/diph enhydrAMINE :lidocaine2 % viscous 1:1:1 Susp suspension 2022-08 00:00: 00 Yes [id number] 5mL Take 5 mL by mouth 3 (three) times daily as needed (gargle and spit). [facility] maalox/diph enhydrAMINE :lidocaine2 % viscous 1:1:1 Susp suspension 2022-08 00:00: 00 Yes [id number] 5mL Take 5 mL by mouth 3 (three) times daily as needed (gargle and spit). [facility] maalox/diph enhydrAMINE :lidocaine2 % viscous 1:1:1 Susp suspension 2022-08 00:00: 00 Yes [id number] 5mL Take 5 mL by mouth 3 (three) times daily as needed (gargle and spit). [facility] maalox/diph enhydrAMINE :lidocaine2 % viscous 1:1:1 Susp suspension 2022-08 00:00: 00 Yes [id number] 5mL Take 5 mL by mouth 3 (three) times daily as needed (gargle and spit). [facility] nystatin 100,000 unit/gram powder 3-1 2-20 00:00: 00 Yes [id number] Apply to area(s) 2 (two) times daily. [facility] nystatin 100,000 unit/gram powder 2022-1 2-20 00:00: 00 Yes [id number] Apply to area(s) 2 (two) times daily. [facility] nystatin 100,000 unit/gram powder 2022-1 2-20 00:00: 00 Yes [id number] Apply to area(s) 2 (two) times daily. [facility] nystatin 100,000 unit/gram powder 2022-1 2-20 00:00: 00 Yes [id number] Apply to area(s) 2 (two) times daily. [facility] nystatin 100,000 unit/gram powder 3-1 2-20 00:00: 00 Yes [id number] Apply to area(s) 2 (two) times daily. [facility] nystatin 100,000 unit/gram powder 2022- 2-20 00:00: 00 Yes [id number] Apply to area(s) 2 (two) times daily. [facility] nystatin 100,000 unit/gram powder 2022-08 2-20 00:00: 00 Yes [id number] Apply to area(s) 2 (two) times daily. [facility] nystatin 100,000 unit/gram powder 2022-1 2-20 00:00: 00 Yes [id number] Apply to area(s) 2 (two) times daily. [facility] nystatin 100,000 unit/gram powder 2022-1 2-20 00:00: 00 Yes [id number] Apply to area(s) 2 (two) times daily. [facility] nystatin 100,000 unit/gram powder 3-1 2-20 00:00: 00 Yes [id number] Apply to area(s) 2 (two) times daily. [facility] nystatin 100,000 unit/gram powder 2022-1 2-20 00:00: 00 Yes [id number] Apply to area(s) 2 (two) times daily. [facility]/gram powder 2022-08 00:00: 00 Yes [id number] Apply to area(s) 2 (two) times daily. [facility] 100,000 unit/gram powder 2022-08 00:00: 00 Yes [id number] Apply to area(s) 2 (two) times daily. [facility] nystatin 100,000 unit/gram powder 2022-08 00:00: 00 Yes [id number] Apply to area(s) 2 (two) times daily. [facility] nystatin 100,000 unit/gram powder 2022-08 00:00: 00 Yes [id number] Apply to area(s) 2 (two) times daily. [facility] insulin degludec (TRESIBA FLEXTOUCH U-200) 200 unit/mL (3 mL) In 2022-08 00:00: 00 Yes [id number] ADMINISTER 48 UNITS UNDER THE SKIN THREE TIMES DAILY [facility] Insulin Waves, Disposable, (BD ULTRAFINE III MINI PEN) 31 gauge x 3/16" Ndle 2022-08 00:00: 00 Yes [id number] USE DIRECTED FOUR TIMES DAILY. Dx E11.9 [facility] metFORMIN 850 mg tablet 2022-08 00:00: 00 Yes [id number] 850mg Take 1 tablet by mouth daily with breakfast. [facility] empaglifloz in (JARDIANCE) 10 mg 2022-08 00:00: 00 Yes [id number] 10mg Take 1 tablet by mouth in the morning. [facility] insulin degludec (TRESIBA FLEXTOUCH U-200) 200 unit/mL (3 mL) [facility] 2022-08 00:00: 00 Yes [id number] ADMINISTER 48 UNITS UNDER THE SKIN THREE TIMES DAILY [facility] Insulin Waves, Disposable, (BD ULTRAFINE III MINI PEN) 31 gauge x 3/16" Ndle 2022-08 00:00: 00 Yes [id number] USE DIRECTED FOUR TIMES DAILY. Dx E11.9 [facility] metFORMIN 850 mg tablet 2022-08 2- 00:00: 00 Yes [id number] 850mg Take 1 tablet by mouth daily with breakfast. [facility] empaglifloz in (JARDIANCE) 10 mg 2022-08 2- 00:00: 00 Yes [id number] 10mg Take 1 tablet by mouth in the morning. [facility] insulin degludec (TRESIBA FLEXTOUCH U-200) 200 unit/mL (3 mL) In 2022-08 2 00:00: 00 Yes [id number] ADMINISTER 48 UNITS UNDER THE SKIN THREE TIMES DAILY [facility] Insulin Waves, Disposable, (BD ULTRAFINE III MINI PEN) 31 gauge x 3/16" Ndle 2022-08 2 00:00: 00 Yes [id number] USE DIRECTED FOUR TIMES DAILY. Dx E11.9 [facility] metFORMIN 850 mg tablet 2022-08 2 00:00: 00 Yes [id number] 850mg Take 1 tablet by mouth daily with breakfast. [facility] empaglifloz in (JARDIANCE) 10 mg 2022-08 2 00:00: 00 Yes [id number] 10mg Take 1 tablet by mouth in the morning. [facility] insulin degludec (TRESIBA FLEXTOUCH U-200) 200 unit/mL (3 mL) In 2022-08 2 00:00: 00 Yes [id number] ADMINISTER 48 UNITS UNDER THE SKIN THREE TIMES DAILY [facility] Insulin Waves, Disposable, (BD ULTRAFINE III MINI PEN) 31 gauge x 3/16" Ndle 2022-08 2- 00:00: 00 Yes [id number] USE DIRECTED FOUR TIMES DAILY. Dx E11.9 [facility] metFORMIN 850 mg tablet 2022-08 2- 00:00: 00 Yes [id number] 850mg Take 1 tablet by mouth daily with breakfast. [facility] empaglifloz in (JARDIANCE) 10 mg 2022-08 2- 00:00: 00 Yes [id number] 10mg Take 1 tablet by mouth in the morning. [facility] insulin degludec (TRESIBA FLEXTOUCH U-200) 200 unit/mL (3 mL) In 2022-08 2- 00:00: 00 Yes [id number] ADMINISTER 48 UNITS UNDER THE SKIN THREE TIMES DAILY [facility] Insulin Waves, Disposable, (BD ULTRAFINE III MINI PEN) 31 gauge x 3/16" Ndle 2022-08 2 00:00: 00 Yes [id number] USE DIRECTED FOUR TIMES DAILY. Dx E11.9 [facility] metFORMIN 850 mg tablet 2022-08 2- 00:00: 00 Yes [id number] 850mg Take 1 tablet by mouth daily with breakfast. [facility] empaglifloz in (JARDIANCE) 10 mg 2022-08 00:00: 00 Yes [id number] 10mg Take 1 tablet by mouth in the morning. [facility] insulin degludec (TRESIBA FLEXTOUCH U-200) 200 unit/mL (3 mL) [facility] 2022-08 00:00: 00 Yes [id number] ADMINISTER 48 UNITS UNDER THE SKIN THREE TIMES DAILY [facility] Insulin Waves, Disposable, (BD ULTRAFINE III MINI PEN) 31 gauge x 3/16" [facility] 2022-08 00:00: 00 Yes [id number] USE DIRECTED FOUR TIMES DAILY. Dx E11.9 [facility] metFORMIN 850 mg tablet 2022-08 2- 00:00: 00 Yes [id number] 850mg Take 1 tablet by mouth daily with breakfast. [facility] empaglifloz in (JARDIANCE) 10 mg 2022-08 2- 00:00: 00 Yes [id number] 10mg Take 1 tablet by mouth in the morning. [facility] insulin degludec (TRESIBA FLEXTOUCH U-200) 200 unit/mL (3 mL) [facility] 2022-08 2- 00:00: 00 Yes [id number] ADMINISTER 48 UNITS UNDER THE SKIN THREE TIMES DAILY [facility] Insulin Waves, Disposable, (BD ULTRAFINE III MINI PEN) 31 gauge x 3/16" Mtle 2022-08 2- 00:00: 00 Yes [id number] USE DIRECTED FOUR TIMES DAILY. Dx E11.9 [facility] metFORMIN 850 mg tablet 2022-08 2- 00:00: 00 Yes [id number] 850mg Take 1 tablet by mouth daily with breakfast. [facility] empaglifloz in (JARDIANCE) 10 mg 2022-08 2 00:00: 00 Yes [id number] 10mg Take 1 tablet by mouth in the morning. [facility] insulin degludec (TRESIBA FLEXTOUCH U-200) 200 unit/mL (3 mL) In 2022-08 00:00: 00 Yes [id number] ADMINISTER 48 UNITS UNDER THE SKIN THREE TIMES DAILY [facility] Insulin Waves, Disposable, (BD ULTRAFINE III MINI PEN) 31 gauge x 3/16" [facility] 2022-08 00:00: 00 Yes [id number] USE DIRECTED FOUR TIMES DAILY. Dx E11.9 [facility] metFORMIN 850 mg tablet 2022-08 00:00: 00 Yes [id number] 850mg Take 1 tablet by mouth daily with breakfast. [facility] empaglifloz in (JARDIANCE) 10 mg 2022-08 00:00: 00 Yes [id number] 10mg Take 1 tablet by mouth in the morning. [facility] insulin degludec (TRESIBA FLEXTOUCH U-200) 200 unit/mL (3 mL) [facility] 2022-08 00:00: 00 Yes [id number] ADMINISTER 48 UNITS UNDER THE SKIN THREE TIMES DAILY [facility] Insulin Waves, Disposable, (BD ULTRAFINE III MINI PEN) 31 gauge x 3/16" Mtle 2022-08- 00:00: 00 Yes [id number] USE DIRECTED FOUR TIMES DAILY. Dx E11.9 [facility] metFORMIN 850 mg tablet 2022-08 2- 00:00: 00 Yes [id number] 850mg Take 1 tablet by mouth daily with breakfast. [facility] empaglifloz in (JARDIANCE) 10 mg 2022-08 2- 00:00: 00 Yes [id number] 10mg Take 1 tablet by mouth in the morning. [facility] insulin degludec (TRESIBA FLEXTOUCH U-200) 200 unit/mL (3 mL) In 2022-08 2- 00:00: 00 Yes [id number] ADMINISTER 48 UNITS UNDER THE SKIN THREE TIMES DAILY [facility] Waves, Disposable, (BD ULTRAFINE III MINI PEN) 31 gauge x 3/16" Mtle 2022-08 2- 00:00: 00 Yes [id number] USE DIRECTED FOUR TIMES DAILY. Dx E11.9 [facility] metFORMIN 850 mg tablet 2022-08 2- 00:00: 00 Yes [id number] 850mg Take 1 tablet by mouth daily with breakfast. [facility] empaglifloz in (JARDIANCE) 10 mg 2022-08 2- 00:00: 00 Yes [id number] 10mg Take 1 tablet by mouth in the morning. [facility] degludec (TRESIBA FLEXTOUCH U-200) 200 unit/mL (3 mL) In 2022-08 2- 00:00: 00 Yes [id number] ADMINISTER 48 UNITS UNDER THE SKIN THREE TIMES DAILY [facility] Insulin Waves, Disposable, (BD ULTRAFINE III MINI PEN) 31 gauge x 3/16" [facility] 2022-08 2- 00:00: 00 Yes [id number] USE DIRECTED FOUR TIMES DAILY. Dx E11.9 [facility] metFORMIN 850 mg tablet 2022-08 2- 00:00: 00 Yes [id number] 850mg Take 1 tablet by mouth daily with breakfast. [facility] empaglifloz in (JARDIANCE) 10 mg 2022-08 2- 00:00: 00 Yes [id number] 10mg Take 1 tablet by mouth in the morning. [facility] degludec (TRESIBA FLEXTOUCH U-200) 200 unit/mL (3 mL) In 2022-08 2- 00:00: 00 Yes [id number] ADMINISTER 48 UNITS UNDER THE SKIN THREE TIMES DAILY [facility] Insulin Waves, Disposable, (BD ULTRAFINE III MINI PEN) 31 gauge x 3/16" Ndle 2022-08 2- 00:00: 00 Yes [id number] USE DIRECTED FOUR TIMES DAILY. Dx E11.9 [facility] metFORMIN 850 mg tablet 2022-08 2- 00:00: 00 Yes [id number] 850mg Take 1 tablet by mouth daily with breakfast. [facility] empaglifloz in (JARDIANCE) 10 mg 2022-08 2 00:00: 00 Yes [id number] 10mg Take 1 tablet by mouth in the morning. [facility] insulin degludec (TRESIBA FLEXTOUCH U-200) 200 unit/mL (3 mL) In 2022-08 00:00: 00 Yes [id number] ADMINISTER 48 UNITS UNDER THE SKIN THREE TIMES DAILY [facility] Insulin Waves, Disposable, (BD ULTRAFINE III MINI PEN) 31 gauge x 3/16" Ndle 2022-08 00:00: 00 Yes [id number] USE DIRECTED FOUR TIMES DAILY. Dx E11.9 [facility] metFORMIN 850 mg tablet 2022-08 00:00: 00 Yes [id number] 850mg Take 1 tablet by mouth daily with breakfast. [facility] empaglifloz in (JARDIANCE) 10 mg 2022-08 00:00: 00 Yes [id number] 10mg Take 1 tablet by mouth in the morning. [facility] insulin degludec (TRESIBA FLEXTOUCH U-200) 200 unit/mL (3 mL) In 2022-08 2 00:00: 00 Yes [id number] ADMINISTER 48 UNITS UNDER THE SKIN THREE TIMES DAILY [facility] Insulin Waves, Disposable, (BD ULTRAFINE III MINI PEN) 31 gauge x 3/16" Ndle 2022-08- 00:00: 00 Yes [id number] USE DIRECTED FOUR TIMES DAILY. Dx E11.9 [facility] metFORMIN 850 mg tablet 2022-08 2- 00:00: 00 Yes [id number] 850mg Take 1 tablet by mouth daily with breakfast. [facility] empaglifloz in (JARDIANCE) 10 mg 2022-08 2- 00:00: 00 Yes [id number] 10mg Take 1 tablet by mouth in the morning. [facility] insulin degludec (TRESIBA FLEXTOUCH U-200) 200 unit/mL (3 mL) In 2022-08 2- 00:00: 00 Yes [id number] ADMINISTER 48 UNITS UNDER THE SKIN THREE TIMES DAILY [facility] Insulin Waves, Disposable, (BD ULTRAFINE III MINI PEN) 31 gauge x 3/16" Mtle 2022-08 2- 00:00: 00 Yes [id number] USE DIRECTED FOUR TIMES DAILY. Dx E11.9 [facility] metFORMIN 850 mg tablet 2022-08 2- 00:00: 00 Yes [id number] 850mg Take 1 tablet by mouth daily with breakfast. [facility] empaglifloz in (JARDIANCE) 10 mg 2022-08 2 00:00: 00 Yes [id number] 10mg Take 1 tablet by mouth in the morning. [facility] insulin degludec (TRESIBA FLEXTOUCH U-200) 200 unit/mL (3 mL) In 2022-08 2 00:00: 00 Yes [id number] ADMINISTER 48 UNITS UNDER THE SKIN THREE TIMES DAILY [facility] Insulin Waves, Disposable, (BD ULTRAFINE III MINI PEN) 31 gauge x 3/16" Ndle 2022-08 2 00:00: 00 Yes [id number] USE DIRECTED FOUR TIMES DAILY. Dx E11.9 [facility] metFORMIN 850 mg tablet 2022-08 2- 00:00: 00 Yes [id number] 850mg Take 1 tablet by mouth daily with breakfast. [facility] empaglifloz in (JARDIANCE) 10 mg 2022-08 2- 00:00: 00 Yes [id number] 10mg Take 1 tablet by mouth in the morning. [facility] insulin degludec (TRESIBA FLEXTOUCH U-200) 200 unit/mL (3 mL) In 2022-08 2- 00:00: 00 Yes [id number] ADMINISTER 48 UNITS UNDER THE SKIN THREE TIMES DAILY [facility] Insulin Waves, Disposable, (BD ULTRAFINE III MINI PEN) 31 gauge x 3/16" Ndle 2022-08 2- 00:00: 00 Yes [id number] USE DIRECTED FOUR TIMES DAILY. Dx E11.9 [facility] metFORMIN 850 mg tablet 2022-08 2 00:00: 00 Yes [id number] 850mg Take 1 tablet by mouth daily with breakfast. [facility] empaglifloz in (JARDIANCE) 10 mg 2022-08 00:00: 00 Yes [id number] 10mg Take 1 tablet by mouth in the morning. [facility] insulin degludec (TRESIBA FLEXTOUCH U-200) 200 unit/mL (3 mL) In 2022-08 00:00: 00 Yes [id number] ADMINISTER 48 UNITS UNDER THE SKIN THREE TIMES DAILY [facility] Insulin Waves, Disposable, (BD ULTRAFINE III MINI PEN) 31 gauge x 3/16" Mtle 2022-08 00:00: 00 Yes [id number] USE DIRECTED FOUR TIMES DAILY. Dx E11.9 [facility] metFORMIN 850 mg tablet 2022-08 00:00: 00 Yes [id number] 850mg Take 1 tablet by mouth daily with breakfast. [facility] empaglifloz in (JARDIANCE) 10 mg 2022-08 00:00: 00 Yes [id number] 10mg Take 1 tablet by mouth in the morning. [facility] insulin degludec (TRESIBA FLEXTOUCH U-200) 200 unit/mL (3 mL) In 2022-08 00:00: 00 Yes [id number] ADMINISTER 48 UNITS UNDER THE SKIN THREE TIMES DAILY [facility] Insulin Waves, Disposable, (BD ULTRAFINE III MINI PEN) 31 gauge x 3/16" Ndle 2022-08- 00:00: 00 Yes [id number] USE DIRECTED FOUR TIMES DAILY. Dx E11.9 [facility] metFORMIN 850 mg tablet 2022-08 2 00:00: 00 Yes [id number] 850mg Take 1 tablet by mouth daily with breakfast. [facility] empaglifloz in (JARDIANCE) 10 mg 2022-08 00:00: 00 Yes [id number] 10mg Take 1 tablet by mouth in the morning. [facility] insulin degludec (TRESIBA FLEXTOUCH U-200) 200 unit/mL (3 mL) InPn 2022-08 00:00: 00 Yes [id number] ADMINISTER 48 UNITS UNDER THE SKIN THREE TIMES DAILY [facility] Insulin Waves, Disposable, (BD ULTRAFINE III MINI PEN) 31 gauge x 3/16" Ndle 2022-08 00:00: 00 Yes [id number] USE DIRECTED FOUR TIMES DAILY. Dx E11.9 [facility] metFORMIN 850 mg tablet 2022-08 00:00: 00 Yes [id number] 850mg Take 1 tablet by mouth daily with breakfast. [facility] empaglifloz in (JARDIANCE) 10 mg 2022-08 00:00: 00 Yes [id number] 10mg Take 1 tablet by mouth in the morning. [facility] neomycin-po lymyxin-gra micidin ophthalmic drops 2022-08 00:00: 00 Yes [id number] 1[drp] Place 1 Drop in left eye in the morning and 1 Drop at noon and 1 Drop in the evening. [facility] neomycin-po lymyxin-gra micidin ophthalmic drops 2022-08 00:00: 00 Yes [id number] 1[drp] Place 1 Drop in left eye in the morning and 1 Drop at noon and 1 Drop in the evening. [facility] neomycin-po lymyxin-gra micidin ophthalmic drops 2022-08 00:00: 00 Yes [id number] 1[drp] Place 1 Drop in left eye in the morning and 1 Drop at noon and 1 Drop in the evening. [facility] neomycin-po lymyxin-gra micidin ophthalmic drops 2022-08 00:00: 00 Yes [id number] 1[drp] Place 1 Drop in left eye in the morning and 1 Drop at noon and 1 Drop in the evening. [facility] neomycin-po lymyxin-gra micidin ophthalmic drops 2022-08 00:00: 00 Yes [id number] 1[drp] Place 1 Drop in left eye in the morning and 1 Drop at noon and 1 Drop in the evening. [facility] neomycin-po lymyxin-gra micidin ophthalmic drops 2022-08 00:00: 00 Yes [id number] 1[drp] Place 1 Drop in left eye in the morning and 1 Drop at noon and 1 Drop in the evening. [facility] neomycin-po lymyxin-gra micidin ophthalmic drops 2022-08 00:00: 00 Yes [id number] 1[drp] Place 1 Drop in left eye in the morning and 1 Drop at noon and 1 Drop in the evening. [facility] neomycin-po lymyxin-gra micidin ophthalmic drops 2022-08 00:00: 00 Yes [id number] 1[drp] Place 1 Drop in left eye in the morning and 1 Drop at noon and 1 Drop in the evening. [facility] neomycin-po lymyxin-gra micidin ophthalmic drops 2022-08 00:00: 00 Yes [id number] 1[drp] Place 1 Drop in left eye in the morning and 1 Drop at noon and 1 Drop in the evening. [facility] neomycin-po lymyxin-gra micidin ophthalmic drops 2022-08 00:00: 00 Yes [id number] 1[drp] Place 1 Drop in left eye in the morning and 1 Drop at noon and 1 Drop in the evening. [facility] neomycin-po lymyxin-gra micidin ophthalmic drops 2022-08 00:00: 00 Yes [id number] 1[drp] Place 1 Drop in left eye in the morning and 1 Drop at noon and 1 Drop in the evening. [facility] neomycin-po lymyxin-gra micidin ophthalmic drops 2022-08 00:00: 00 Yes [id number] 1[drp] Place 1 Drop in left eye in the morning and 1 Drop at noon and 1 Drop in the evening. [facility] neomycin-po lymyxin-gra micidin ophthalmic drops 2022-08 00:00: 00 Yes [id number] 1[drp] Place 1 Drop in left eye in the morning and 1 Drop at noon and 1 Drop in the evening. [facility] neomycin-po lymyxin-gra micidin ophthalmic drops 2022-08 00:00: 00 Yes [id number] 1[drp] Place 1 Drop in left eye in the morning and 1 Drop at noon and 1 Drop in the evening. [facility] neomycin-po lymyxin-gra micidin ophthalmic drops 2022-08 00:00: 00 Yes [id number] 1[drp] Place 1 Drop in left eye in the morning and 1 Drop at noon and 1 Drop in the evening. [facility] neomycin-po lymyxin-gra micidin ophthalmic drops 2022-08 00:00: 00 Yes [id number] 1[drp] Place 1 Drop in left eye in the morning and 1 Drop at noon and 1 Drop in the evening. [facility] neomycin-po lymyxin-gra micidin ophthalmic drops 2022-08 00:00: 00 Yes [id number] 1[drp] Place 1 Drop in left eye in the morning and 1 Drop at noon and 1 Drop in the evening. [facility] neomycin-po lymyxin-gra micidin ophthalmic drops 2022-08 00:00: 00 Yes [id number] 1[drp] Place 1 Drop in left eye in the morning and 1 Drop at noon and 1 Drop in the evening. [facility] neomycin-po lymyxin-gra micidin ophthalmic drops 2022-08 00:00: 00 Yes [id number] 1[drp] Place 1 Drop in left eye in the morning and 1 Drop at noon and 1 Drop in the evening. [facility] neomycin-po lymyxin-gra micidin ophthalmic drops 2022-08 00:00: 00 Yes [id number] 1[drp] Place 1 Drop in left eye in the morning and 1 Drop at noon and 1 Drop in the evening. [facility] neomycin-po lymyxin-gra micidin ophthalmic drops 2022-08 00:00: 00 Yes [id number] 1[drp] Place 1 Drop in left eye in the morning and 1 Drop at noon and 1 Drop in the evening. [facility] neomycin-po lymyxin-gra micidin ophthalmic drops 2022-08 00:00: 00 Yes [id number] 1[drp] Place 1 Drop in left eye in the morning and 1 Drop at noon and 1 Drop in the evening. [facility] clonazePAM 1 mg tablet 2022-08 00:00: 00 Yes [id number] TAKE 1 TABLET BY MOUTH FOUR TIMES DAILY NEEDED FOR PANIC [facility] clonazePAM 1 mg tablet 2022-08 00:00: 00 Yes [id number] TAKE 1 TABLET BY MOUTH FOUR TIMES DAILY NEEDED FOR PANIC [facility] clonazePAM 1 mg tablet 2022-08 00:00: 00 Yes [id number] TAKE 1 TABLET BY MOUTH FOUR TIMES DAILY NEEDED FOR PANIC [facility] clonazePAM 1 mg tablet 2022-08 00:00: 00 Yes [id number] TAKE 1 TABLET BY MOUTH FOUR TIMES DAILY NEEDED FOR PANIC [facility] clonazePAM 1 mg tablet 2022-08 00:00: 00 Yes [id number] TAKE 1 TABLET BY MOUTH FOUR TIMES DAILY NEEDED FOR PANIC [facility] clonazePAM 1 mg tablet 2022-08 2- 00:00: 00 Yes [id number] TAKE 1 TABLET BY MOUTH FOUR TIMES DAILY NEEDED FOR PANIC [facility] clonazePAM 1 mg tablet 2022-08- 00:00: 00 Yes [id number] TAKE 1 TABLET BY MOUTH FOUR TIMES DAILY NEEDED FOR PANIC [facility] clonazePAM 1 mg tablet 2022-08- 00:00: 00 Yes [id number] TAKE 1 TABLET BY MOUTH FOUR TIMES DAILY NEEDED FOR PANIC [facility] clonazePAM 1 mg tablet 2022-08 2- 00:00: 00 Yes [id number] TAKE 1 TABLET BY MOUTH FOUR TIMES DAILY NEEDED FOR PANIC [facility] clonazePAM 1 mg tablet 2022-08 2- 00:00: 00 08-05 00:00 :00 No [id number] TAKE 1 TABLET BY MOUTH FOUR TIMES DAILY NEEDED FOR PANIC [facility] clonazePAM 1 mg tablet 2022-08 2- 00:00: 00 08-05 00:00 :00 No [id number] TAKE 1 TABLET BY MOUTH FOUR TIMES DAILY NEEDED FOR PANIC [facility] clonazePAM 1 mg tablet 2022-08 2 00:00: 00 08-05 00:00 :00 No [id number] TAKE 1 TABLET BY MOUTH FOUR TIMES DAILY NEEDED FOR PANIC [facility] erythromyci n 5 mg/gram (0.5 %) ophthalmic ointment 2022-08 00:00: 00 Yes [id number] 9106 .5[in_u s] Place 0.5 Inches in left eye 4 (four) times daily. [facility] erythromyci n 5 mg/gram (0.5 %) ophthalmic ointment 2022-08 00:00: 00 Yes [id number] 9106 .5[in_u s] Place 0.5 Inches in left eye 4 (four) times daily. [facility] ity [facility] erythromyci n 5 mg/gram (0.5 %) ophthalmic ointment 2022-08 00:00: 00 Yes [id number] 9106 .5[in_u s] Place 0.5 Inches in left eye 4 (four) times daily. [facility] erythromyci n 5 mg/gram (0.5 %) ophthalmic ointment 2022-08 00:00: 00 Yes [id number] 9106 .5[in_u s] Place 0.5 Inches in left eye 4 (four) times daily. [facility] erythromyci n 5 mg/gram (0.5 %) ophthalmic ointment 2022-08 00:00: 00 Yes [id number] 9106 .5[in_u s] Place 0.5 Inches in left eye 4 (four) times daily. [facility] erythromyci n 5 mg/gram (0.5 %) ophthalmic ointment 2022-08 00:00: 00 07-09 00:00 :00 No [id number] 9106 .5[in_u s] Place 0.5 Inches in left eye 4 (four) times daily. [facility] erythromyci n 5 mg/gram (0.5 %) ophthalmic ointment 2022-08 00:00: 00 07-09 00:00 :00 No [id number] 9106 .5[in_u s] Place 0.5 Inches in left eye 4 (four) times daily. [facility] ALBUTEROL 90 mcg/actuati on inhaler 2022-08 00:00: 00 Yes [id number] INHALE 2 PUFFS BY MOUTH EVERY 6 HOURS NEEDED FOR WHEEZING, SHORTNESS OF BREATH OR BRONCHOSPA SMS. [facility] ALBUTEROL 90 mcg/actuati on inhaler 2022-08 00:00: 00 Yes [id number] INHALE 2 PUFFS BY MOUTH EVERY 6 HOURS NEEDED FOR WHEEZING, SHORTNESS OF BREATH OR BRONCHOSPA SMS. [facility] ALBUTEROL 90 mcg/actuati on inhaler 2022-08 00:00: 00 Yes [id number] INHALE 2 PUFFS BY MOUTH EVERY 6 HOURS NEEDED FOR WHEEZING, SHORTNESS OF BREATH OR BRONCHOSPA SMS. [facility] ALBUTEROL 90 mcg/actuati on inhaler 2022-08 00:00: 00 Yes [id number] INHALE 2 PUFFS BY MOUTH EVERY 6 HOURS NEEDED FOR WHEEZING, SHORTNESS OF BREATH OR BRONCHOSPA SMS. [facility] ALBUTEROL 90 mcg/actuati on inhaler 2022-08 00:00: 00 Yes [id number] INHALE 2 PUFFS BY MOUTH EVERY 6 HOURS NEEDED FOR WHEEZING, SHORTNESS OF BREATH OR BRONCHOSPA SMS. [facility] ALBUTEROL 90 mcg/actuati on inhaler 2022-08 00:00: 00 Yes [id number] INHALE 2 PUFFS BY MOUTH EVERY 6 HOURS NEEDED FOR WHEEZING, SHORTNESS OF BREATH OR BRONCHOSPA SMS. [facility] ALBUTEROL 90 mcg/actuati on inhaler 2022-08 00:00: 00 Yes [id number] INHALE 2 PUFFS BY MOUTH EVERY 6 HOURS NEEDED FOR WHEEZING, SHORTNESS OF BREATH OR BRONCHOSPA SMS. [facility] ALBUTEROL 90 mcg/actuati on inhaler 2022-08 00:00: 00 Yes [id number] INHALE 2 PUFFS BY MOUTH EVERY 6 HOURS NEEDED FOR WHEEZING, SHORTNESS OF BREATH OR BRONCHOSPA SMS. [facility] ALBUTEROL 90 mcg/actuati on inhaler 2022-08 00:00: 00 Yes [id number] INHALE 2 PUFFS BY MOUTH EVERY 6 HOURS NEEDED FOR WHEEZING, SHORTNESS OF BREATH OR BRONCHOSPA SMS. [facility] ALBUTEROL 90 mcg/actuati on inhaler 2022-08 00:00: 00 Yes [id number] INHALE 2 PUFFS BY MOUTH EVERY 6 HOURS NEEDED FOR WHEEZING, SHORTNESS OF BREATH OR BRONCHOSPA SMS. [facility] ALBUTEROL 90 mcg/actuati on inhaler 2022-08 00:00: 00 Yes [id number] INHALE 2 PUFFS BY MOUTH EVERY 6 HOURS NEEDED FOR WHEEZING, SHORTNESS OF BREATH OR BRONCHOSPA SMS. [facility] ALBUTEROL 90 mcg/actuati on inhaler 2022-08 00:00: 00 Yes [id number] INHALE 2 PUFFS BY MOUTH EVERY 6 HOURS NEEDED FOR WHEEZING, SHORTNESS OF BREATH OR BRONCHOSPA SMS. [facility] ALBUTEROL 90 mcg/actuati on inhaler 2022-08 00:00: 00 Yes [id number] INHALE 2 PUFFS BY MOUTH EVERY 6 HOURS NEEDED FOR WHEEZING, SHORTNESS OF BREATH OR BRONCHOSPA SMS. [facility] ALBUTEROL 90 mcg/actuati on inhaler 2022-08 00:00: 00 Yes [id number] INHALE 2 PUFFS BY MOUTH EVERY 6 HOURS NEEDED FOR WHEEZING, SHORTNESS OF BREATH OR BRONCHOSPA SMS. [facility] ALBUTEROL 90 mcg/actuati on inhaler 2022-08 00:00: 00 Yes [id number] INHALE 2 PUFFS BY MOUTH EVERY 6 HOURS NEEDED FOR WHEEZING, SHORTNESS OF BREATH OR BRONCHOSPA SMS. [facility] ALBUTEROL 90 mcg/actuati on inhaler 2022-08 00:00: 00 Yes [id number] INHALE 2 PUFFS BY MOUTH EVERY 6 HOURS NEEDED FOR WHEEZING, SHORTNESS OF BREATH OR BRONCHOSPA SMS. [facility] ALBUTEROL 90 mcg/actuati on inhaler 2022-08 00:00: 00 Yes [id number] INHALE 2 PUFFS BY MOUTH EVERY 6 HOURS NEEDED FOR WHEEZING, SHORTNESS OF BREATH OR BRONCHOSPA SMS. [facility] ALBUTEROL 90 mcg/actuati on inhaler 2022-08 00:00: 00 Yes [id number] INHALE 2 PUFFS BY MOUTH EVERY 6 HOURS NEEDED FOR WHEEZING, SHORTNESS OF BREATH OR BRONCHOSPA SMS. [facility] ALBUTEROL 90 mcg/actuati on inhaler 2022-08 00:00: 00 Yes [id number] INHALE 2 PUFFS BY MOUTH EVERY 6 HOURS NEEDED FOR WHEEZING, SHORTNESS OF BREATH OR BRONCHOSPA SMS. [facility] ALBUTEROL 90 mcg/actuati on inhaler 2022-08 00:00: 00 Yes [id number] INHALE 2 PUFFS BY MOUTH EVERY 6 HOURS NEEDED FOR WHEEZING, SHORTNESS OF BREATH OR BRONCHOSPA SMS. [facility] ALBUTEROL 90 mcg/actuati on inhaler 2022-08 00:00: 00 Yes [id number] INHALE 2 PUFFS BY MOUTH EVERY 6 HOURS NEEDED FOR WHEEZING, SHORTNESS OF BREATH OR BRONCHOSPA SMS. [facility] ALBUTEROL 90 mcg/actuati on inhaler 2022-08 00:00: 00 Yes [id number] INHALE 2 PUFFS BY MOUTH EVERY 6 HOURS NEEDED FOR WHEEZING, SHORTNESS OF BREATH OR BRONCHOSPA SMS. [facility] ALBUTEROL 90 mcg/actuati on inhaler 2022-08 00:00: 00 Yes [id number] INHALE 2 PUFFS BY MOUTH EVERY 6 HOURS NEEDED FOR WHEEZING, SHORTNESS OF BREATH OR BRONCHOSPA SMS. [facility] ALBUTEROL 90 mcg/actuati on inhaler 2022-08 00:00: 00 Yes [id number] INHALE 2 PUFFS BY MOUTH EVERY 6 HOURS NEEDED FOR WHEEZING, SHORTNESS OF BREATH OR BRONCHOSPA SMS. [facility] ALBUTEROL 90 mcg/actuati on inhaler 2022-08 00:00: 00 Yes [id number] INHALE 2 PUFFS BY MOUTH EVERY 6 HOURS NEEDED FOR WHEEZING, SHORTNESS OF BREATH OR BRONCHOSPA SMS. [facility] ALBUTEROL 90 mcg/actuati on inhaler 2022-08 00:00: 00 Yes [id number] INHALE 2 PUFFS BY MOUTH EVERY 6 HOURS NEEDED FOR WHEEZING, SHORTNESS OF BREATH OR BRONCHOSPA SMS. [facility] ALBUTEROL 90 mcg/actuati on inhaler 2022-08 00:00: 00 Yes [id number] INHALE 2 PUFFS BY MOUTH EVERY 6 HOURS NEEDED FOR WHEEZING, SHORTNESS OF BREATH OR BRONCHOSPA SMS. [facility] ALBUTEROL 90 mcg/actuati on inhaler 2022-08 00:00: 00 Yes [id number] INHALE 2 PUFFS BY MOUTH EVERY 6 HOURS NEEDED FOR WHEEZING, SHORTNESS OF BREATH OR BRONCHOSPA SMS. [facility] clonazePAM 1 mg tablet 2022-08 00:00: 00 Yes [id number] TAKE 1 TABLET BY MOUTH FOUR TIMES DAILY NEEDED FOR PANIC [facility] clonazePAM 1 mg tablet 2022-08 00:00: 00 Yes [id number] TAKE 1 TABLET BY MOUTH FOUR TIMES DAILY NEEDED FOR PANIC [facility] clonazePAM 1 mg tablet 2022-08 00:00: 00 Yes [id number] TAKE 1 TABLET BY MOUTH FOUR TIMES DAILY NEEDED FOR PANIC [facility] clonazePAM 1 mg tablet 2022-08 00:00: 00 Yes [id number] TAKE 1 TABLET BY MOUTH FOUR TIMES DAILY NEEDED FOR PANIC [facility] clonazePAM 1 mg tablet 2022-08 00:00: 00 Yes [id number] TAKE 1 TABLET BY MOUTH FOUR TIMES DAILY NEEDED FOR PANIC [facility] clonazePAM 1 mg tablet 2022-08 00:00: 00 Yes [id number] TAKE 1 TABLET BY MOUTH FOUR TIMES DAILY NEEDED FOR PANIC [facility] clonazePAM 1 mg tablet 2022-08 00:00: 00 Yes [id number] TAKE 1 TABLET BY MOUTH FOUR TIMES DAILY NEEDED FOR PANIC [facility] clonazePAM 1 mg tablet 2022-08 00:00: 00 Yes [id number] TAKE 1 TABLET BY MOUTH FOUR TIMES DAILY NEEDED FOR PANIC [facility] clonazePAM 1 mg tablet 2022-08 00:00: 00 Yes [id number] TAKE 1 TABLET BY MOUTH FOUR TIMES DAILY NEEDED FOR PANIC [facility] clonazePAM 1 mg tablet 2022-08 00:00: 00 07-07 00:00 :00 No [id number] TAKE 1 TABLET BY MOUTH FOUR TIMES DAILY NEEDED FOR PANIC [facility] lisinopriL 40 mg tablet 2022-08 0 00:00: 00 Yes 40mg Take 1 tablet by mouth in the morning. [facility] lisinopriL 40 mg tablet 2022-08 0 00:00: 00 Yes 40mg Take 1 tablet by mouth in the morning. [facility] lisinopriL 40 mg tablet 2022-08 0 00:00: 00 Yes 40mg Take 1 tablet by mouth in the morning. [facility] lisinopriL 40 mg tablet 2022-08 0-18 00:00: 00 Yes 40mg Take 1 tablet by mouth in the morning. [facility] lisinopriL 40 mg tablet 2022-08 0-18 00:00: 00 Yes 40mg Take 1 tablet by mouth in the morning. [facility] lisinopriL 40 mg tablet 2022-08 0-18 00:00: 00 Yes 40mg Take 1 tablet by mouth in the morning. [facility] lisinopriL 40 mg tablet 2022-08 0-18 00:00: 00 Yes 40mg Take 1 tablet by mouth in the morning. [facility] lisinopriL 40 mg tablet 2022-1 0-18 00:00: 00 Yes 40mg Take 1 tablet by mouth in the morning. [facility] 20[facility]- 0-18 00:00: 00 Yes 40mg Take 1 tablet by mouth in the morning. [facility] lisinopriL 40 mg tablet 2022- 0-18 00:00: 00 Yes 40mg Take 1 tablet by mouth in the morning. [facility] lisinopriL 40 mg tablet 2022- 0-18 00:00: 00 Yes 40mg Take 1 tablet by mouth in the morning. [facility] lisinopriL 40 mg tablet 2022- 0-18 00:00: 00 Yes 40mg Take 1 tablet by mouth in the morning. [facility] lisinopriL 40 mg tablet 2022- 0-18 00:00: 00 Yes 40mg Take 1 tablet by mouth in the morning. [facility] lisinopriL 40 mg tablet 2022- 0-18 00:00: 00 Yes 40mg Take 1 tablet by mouth in the morning. [facility] lisinopriL 40 mg tablet 2022- 0-18 00:00: 00 Yes 40mg Take 1 tablet by mouth in the morning. [facility] lisinopriL 40 mg tablet 2022- 0-18 00:00: 00 Yes 40mg Take 1 tablet by mouth in the morning. [facility] lisinopriL 40 mg tablet 2022- 0-18 00:00: 00 Yes 40mg Take 1 tablet by mouth in the morning. [facility] lisinopriL 40 mg tablet 3-1 0-18 00:00: 00 Yes 40mg Take 1 tablet by mouth in the morning. [facility] lisinopriL 40 mg tablet 3-1 0-18 00:00: 00 Yes 40mg Take 1 tablet by mouth in the morning. [facility] lisinopriL 40 mg tablet 3-1 0-18 00:00: 00 Yes 40mg Take 1 tablet by mouth in the morning. [facility] lisinopriL 40 mg tablet 2023-1 0-18 00:00: 00 Yes 40mg Take 1 tablet by mouth in the morning. [facility] lisinopriL 40 mg tablet 2022-1 0-18 00:00: 00 Yes 40mg Take 1 tablet by mouth in the morning. [facility] lisinopriL 40 mg tablet 2022- 0-18 00:00: 00 Yes 40mg Take 1 tablet by mouth in the morning. [facility] lisinopriL 40 mg tablet 2022- 0-18 00:00: 00 Yes 40mg Take 1 tablet by mouth in the morning. [facility] lisinopriL 40 mg tablet 3-1 0-18 00:00: 00 Yes 40mg Take 1 tablet by mouth in the morning. [facility] lisinopriL 40 mg tablet 2022- 0-18 00:00: 00 Yes 40mg Take 1 tablet by mouth in the morning. [facility] lisinopriL 40 mg tablet 2022- 0-18 00:00: 00 Yes 40mg Take 1 tablet by mouth in the morning. [facility] lisinopriL 40 mg tablet 2022- 0-18 00:00: 00 Yes 40mg Take 1 tablet by mouth in the morning. [facility] lisinopriL 40 mg tablet 2022-08 0-18 00:00: 00 Yes 40mg Take 1 tablet by mouth in the morning. [facility] lisinopriL 40 mg tablet 2022- 0-18 00:00: 00 Yes 40mg Take 1 tablet by mouth in the morning. [facility] lisinopriL 40 mg tablet 3-1 0-18 00:00: 00 Yes 40mg Take 1 tablet by mouth in the morning. [facility] lisinopriL 40 mg tablet 3-1 0-18 00:00: 00 Yes 40mg Take 1 tablet by mouth in the morning. [facility] lisinopriL 40 mg tablet 3-1 0-18 00:00: 00 Yes 40mg Take 1 tablet by mouth in the morning. [facility] lisinopriL 40 mg tablet 3-1 0-18 00:00: 00 Yes 40mg Take 1 tablet by mouth in the morning. [facility] lisinopriL 40 mg tablet 2022-08 0-18 00:00: 00 Yes 40mg Take 1 tablet by mouth in the morning. [facility] lisinopriL 40 mg tablet 2022-08 0 00:00: 00 Yes 40mg Take 1 tablet by mouth in the morning. [facility] lisinopriL 20 mg tablet 2022-08 0 00:00: 00 05-20 00:00 :00 No [id number] 40mg Take 2 tablets by mouth in the morning. TAKE 1 TABLET BY MOUTH IN THE MORNING [facility] METFORMIN 850 mg tablet 2022-08 0- 00:00: 00 Yes [id number] TAKE 1 TABLET BY MOUTH THREE TIMES DAILY [facility] GLIPIZIDE XL 5 mg 24 hr tablet 2022-08 0- 00:00: 00 Yes [id number] 5mg TAKE 1 TABLET BY MOUTH DAILY WITH BREAKFAST [facility] METFORMIN 850 mg tablet 2022-08 0 00:00: 00 Yes [id number] TAKE 1 TABLET BY MOUTH THREE TIMES DAILY [facility] GLIPIZIDE XL 5 mg 24 hr tablet 2022-08 0- 00:00: 00 Yes [id number] 5mg TAKE 1 TABLET BY MOUTH DAILY WITH BREAKFAST [facility] METFORMIN 850 mg tablet 2022-08 0 00:00: 00 Yes [id number] TAKE 1 TABLET BY MOUTH THREE TIMES DAILY [facility] GLIPIZIDE XL 5 mg 24 hr tablet 2022-08 0 00:00: 00 Yes [id number] 5mg TAKE 1 TABLET BY MOUTH DAILY WITH BREAKFAST [facility] METFORMIN 850 mg tablet 2022-08 0- 00:00: 00 Yes [id number] TAKE 1 TABLET BY MOUTH THREE TIMES DAILY [facility] GLIPIZIDE XL 5 mg 24 hr tablet 2022-08 0-12 00:00: 00 Yes [id number] 5mg TAKE 1 TABLET BY MOUTH DAILY WITH BREAKFAST [facility] METFORMIN 850 mg tablet 2022-08 0-12 00:00: 00 Yes [id number] TAKE 1 TABLET BY MOUTH THREE TIMES DAILY [facility] GLIPIZIDE XL 5 mg 24 hr tablet 2022-08 0 00:00: 00 Yes [id number] 5mg TAKE 1 TABLET BY MOUTH DAILY WITH BREAKFAST [facility] METFORMIN 850 mg tablet 2022-08 00:00: 00 Yes [id number] TAKE 1 TABLET BY MOUTH THREE TIMES DAILY [facility] GLIPIZIDE XL 5 mg 24 hr tablet 2022-08 00:00: 00 Yes [id number] 5mg TAKE 1 TABLET BY MOUTH DAILY WITH BREAKFAST [facility] METFORMIN 850 mg tablet 2022-08 00:00: 00 Yes [id number] TAKE 1 TABLET BY MOUTH THREE TIMES DAILY [facility] GLIPIZIDE XL 5 mg 24 hr tablet 2022-08 00:00: 00 Yes [id number] 5mg TAKE 1 TABLET BY MOUTH DAILY WITH BREAKFAST [facility] METFORMIN 850 mg tablet 2022-08 00:00: 00 Yes [id number] TAKE 1 TABLET BY MOUTH THREE TIMES DAILY [facility] GLIPIZIDE XL 5 mg 24 hr tablet 2022-08 00:00: 00 Yes [id number] 5mg TAKE 1 TABLET BY MOUTH DAILY WITH BREAKFAST [facility] METFORMIN 850 mg tablet 2022-08 00:00: 00 Yes [id number] TAKE 1 TABLET BY MOUTH THREE TIMES DAILY [facility] GLIPIZIDE XL 5 mg 24 hr tablet 2022-08 00:00: 00 Yes [id number] 5mg TAKE 1 TABLET BY MOUTH DAILY WITH BREAKFAST [facility] METFORMIN 850 mg tablet 2022-08 00:00: 00 Yes [id number] TAKE 1 TABLET BY MOUTH THREE TIMES DAILY [facility] GLIPIZIDE XL 5 mg 24 hr tablet 2022-08 00:00: 00 Yes [id number] 5mg TAKE 1 TABLET BY MOUTH DAILY WITH BREAKFAST [facility] METFORMIN 850 mg tablet 2022-08 0- 00:00: 00 Yes [id number] TAKE 1 TABLET BY MOUTH THREE TIMES DAILY [facility] GLIPIZIDE XL 5 mg 24 hr tablet 2022-08 012 00:00: 00 Yes [id number] 5mg TAKE 1 TABLET BY MOUTH DAILY WITH BREAKFAST [facility] METFORMIN 850 mg tablet 2022-08 0- 00:00: 00 Yes [id number] TAKE 1 TABLET BY MOUTH THREE TIMES DAILY [facility] GLIPIZIDE XL 5 mg 24 hr tablet 2022-08 0 00:00: 00 Yes [id number] 5mg TAKE 1 TABLET BY MOUTH DAILY WITH BREAKFAST [facility] METFORMIN 850 mg tablet 2022-08 00:00: 00 Yes [id number] TAKE 1 TABLET BY MOUTH THREE TIMES DAILY [facility] GLIPIZIDE XL 5 mg 24 hr tablet 2022-08 00:00: 00 Yes [id number] 5mg TAKE 1 TABLET BY MOUTH DAILY WITH BREAKFAST [facility] METFORMIN 850 mg tablet 2022-08 00:00: 00 Yes [id number] TAKE 1 TABLET BY MOUTH THREE TIMES DAILY [facility] GLIPIZIDE XL 5 mg 24 hr tablet 2022-08 00:00: 00 Yes [id number] 5mg TAKE 1 TABLET BY MOUTH DAILY WITH BREAKFAST [facility] METFORMIN 850 mg tablet 2022-08 00:00: 00 Yes [id number] TAKE 1 TABLET BY MOUTH THREE TIMES DAILY [facility] GLIPIZIDE XL 5 mg 24 hr tablet 2022-08 00:00: 00 Yes [id number] 5mg TAKE 1 TABLET BY MOUTH DAILY WITH BREAKFAST [facility] METFORMIN 850 mg tablet 2022-08 0 00:00: 00 Yes [id number] TAKE 1 TABLET BY MOUTH THREE TIMES DAILY [facility] GLIPIZIDE XL 5 mg 24 hr tablet 2022-08 00:00: 00 Yes [id number] 5mg TAKE 1 TABLET BY MOUTH DAILY WITH BREAKFAST [facility] METFORMIN 850 mg tablet 2022-08- 00:00: 00 Yes [id number] TAKE 1 TABLET BY MOUTH THREE TIMES DAILY [facility] GLIPIZIDE XL 5 mg 24 hr tablet 2022-08- 00:00: 00 Yes [id number] 5mg TAKE 1 TABLET BY MOUTH DAILY WITH BREAKFAST [facility] GLIPIZIDE XL 5 mg 24 hr tablet 2022-08 0-12 00:00: 00 Yes [id number] 5mg TAKE 1 TABLET BY MOUTH DAILY WITH BREAKFAST [facility] GLIPIZIDE XL 5 mg 24 hr tablet 2022-08 0-12 00:00: 00 Yes [id number] 5mg TAKE 1 TABLET BY MOUTH DAILY WITH BREAKFAST [facility] GLIPIZIDE XL 5 mg 24 hr tablet 2022-08 0-12 00:00: 00 Yes [id number] 5mg TAKE 1 TABLET BY MOUTH DAILY WITH BREAKFAST [facility] GLIPIZIDE XL 5 mg 24 hr tablet 2022-08 0-12 00:00: 00 Yes [id number] 5mg TAKE 1 TABLET BY MOUTH DAILY WITH BREAKFAST [facility] GLIPIZIDE XL 5 mg 24 hr tablet 2022-08 0-12 00:00: 00 Yes [id number] 5mg TAKE 1 TABLET BY MOUTH DAILY WITH BREAKFAST [facility] GLIPIZIDE XL 5 mg 24 hr tablet 2022-08 0-12 00:00: 00 Yes [id number] 5mg TAKE 1 TABLET BY MOUTH DAILY WITH BREAKFAST [facility] GLIPIZIDE XL 5 mg 24 hr tablet 2022-08 0-12 00:00: 00 Yes [id number] 5mg TAKE 1 TABLET BY MOUTH DAILY WITH BREAKFAST [facility] GLIPIZIDE XL 5 mg 24 hr tablet 2022-08 0-12 00:00: 00 Yes [id number] 5mg TAKE 1 TABLET BY MOUTH DAILY WITH BREAKFAST [facility] GLIPIZIDE XL 5 mg 24 hr tablet 2022-08 0-12 00:00: 00 Yes [id number] 5mg TAKE 1 TABLET BY MOUTH DAILY WITH BREAKFAST [facility] GLIPIZIDE XL 5 mg 24 hr tablet 2022-08 0-12 00:00: 00 Yes [id number] 5mg TAKE 1 TABLET BY MOUTH DAILY WITH BREAKFAST [facility] GLIPIZIDE XL 5 mg 24 hr tablet 2022-08 0-12 00:00: 00 08-10 00:00 :00 No [id number] 5mg TAKE 1 TABLET BY MOUTH DAILY WITH BREAKFAST [facility] METFORMIN 850 mg tablet 2022-08 00:00: 00 07-10 00:00 :00 No [id number] TAKE 1 TABLET BY MOUTH THREE TIMES DAILY [facility] METFORMIN 850 mg tablet 2022-08 00:00: 00 07-10 00:00 :00 No [id number] TAKE 1 TABLET BY MOUTH THREE TIMES DAILY [facility] CARVEDILOL 6.25 mg tablet 2022-08 00:00: 00 Yes [id number] TAKE 1 TABLET BY MOUTH IN THE MORNING AND IN THE EVENING. TAKE WITH FOOD. [facility] LISINOPRIL 20 mg tablet 2022-08 00:00: 00 Yes [id number] 20mg TAKE 1 TABLET BY MOUTH IN THE MORNING [facility] TIZANIDINE 4 mg tablet 2022-08 00:00: 00 Yes [id number] TAKE 1 TABLET BY MOUTH EVERY 8 HOURS NEEDED [facility] CARVEDILOL 6.25 mg tablet 2022-08 00:00: 00 Yes [id number] TAKE 1 TABLET BY MOUTH IN THE MORNING AND IN THE EVENING. TAKE WITH FOOD. [facility] LISINOPRIL 20 mg tablet 2022-08 00:00: 00 Yes [id number] 20mg TAKE 1 TABLET BY MOUTH IN THE MORNING [facility] TIZANIDINE 4 mg tablet 2022-08 00:00: 00 Yes [id number] TAKE 1 TABLET BY MOUTH EVERY 8 HOURS NEEDED [facility] NYSTATIN 100,000 unit/mL suspension 2022-08 00:00: 00 Yes [id number] SHAKE LIQUID AND TAKE 5 ML BY MOUTH FOUR TIMES DAILY [facility] CARVEDILOL 6.25 mg tablet 2022-08 00:00: 00 Yes [id number] TAKE 1 TABLET BY MOUTH IN THE MORNING AND IN THE EVENING. TAKE WITH FOOD. [facility] LISINOPRIL 20 mg tablet 2022-08 00:00: 00 Yes [id number] 20mg TAKE 1 TABLET BY MOUTH IN THE MORNING [facility] TIZANIDINE 4 mg tablet 2022-08 00:00: 00 Yes [id number] TAKE 1 TABLET BY MOUTH EVERY 8 HOURS [facility]ED [facility] 100,[facility] unit/mL suspension 2022-08 00:00: 00 Yes [id number] SHAKE LIQUID AND TAKE 5 ML BY MOUTH FOUR TIMES DAILY [facility] CARVEDILOL 6.25 mg tablet 2022-08 00:00: 00 Yes [id number] TAKE 1 TABLET BY MOUTH IN THE MORNING AND IN THE EVENING. TAKE WITH FOOD. [facility] TIZANIDINE 4 mg tablet 2022-08 00:00: 00 Yes [id number] TAKE 1 TABLET BY MOUTH EVERY 8 HOURS NEEDED [facility] NYSTATIN 100,000 unit/mL suspension 2022-08 00:00: 00 Yes [id number] SHAKE LIQUID AND TAKE 5 ML BY MOUTH FOUR TIMES DAILY [facility] CARVEDILOL 6.25 mg tablet 2022-08 00:00: 00 Yes [id number] TAKE 1 TABLET BY MOUTH IN THE MORNING AND IN THE EVENING. TAKE WITH FOOD. [facility] TIZANIDINE 4 mg tablet 2022-08 00:00: 00 Yes [id number] TAKE 1 TABLET BY MOUTH EVERY 8 HOURS NEEDED [facility] NYSTATIN 100,000 unit/mL suspension 2022-08 00:00: 00 Yes [id number] SHAKE LIQUID AND TAKE 5 ML BY MOUTH FOUR TIMES DAILY [facility] CARVEDILOL 6.25 mg tablet 2022-08 00:00: 00 Yes [id number] TAKE 1 TABLET BY MOUTH IN THE MORNING AND IN THE EVENING. TAKE WITH FOOD. [facility] TIZANIDINE 4 mg tablet 2022-08 00:00: 00 Yes [id number] TAKE 1 TABLET BY MOUTH EVERY 8 HOURS NEEDED [facility] NYSTATIN 100,000 unit/mL suspension 2022-08 00:00: 00 Yes [id number] SHAKE LIQUID AND TAKE 5 ML BY MOUTH FOUR TIMES DAILY [facility] CARVEDILOL 6.25 mg tablet 2022-08 00:00: 00 Yes [id number] TAKE 1 TABLET BY MOUTH IN THE MORNING AND IN THE EVENING. TAKE WITH FOOD. [facility] TIZANIDINE 4 mg tablet 2022-08 00:00: 00 Yes [id number] TAKE 1 TABLET BY MOUTH EVERY 8 HOURS NEEDED [facility] NYSTATIN 100,000 unit/mL suspension 2022-08 00:00: 00 Yes [id number] SHAKE LIQUID AND TAKE 5 ML BY MOUTH FOUR TIMES DAILY [facility] CARVEDILOL 6.25 mg tablet 2022-08 00:00: 00 Yes [id number] TAKE 1 TABLET BY MOUTH IN THE MORNING AND IN THE EVENING. TAKE WITH FOOD. [facility] TIZANIDINE 4 mg tablet 2022-08 00:00: 00 Yes [id number] TAKE 1 TABLET BY MOUTH EVERY 8 HOURS NEEDED [facility] NYSTATIN 100,000 unit/mL suspension 2022-08 00:00: 00 Yes [id number] SHAKE LIQUID AND TAKE 5 ML BY MOUTH FOUR TIMES DAILY [facility] CARVEDILOL 6.25 mg tablet 2022-08 00:00: 00 Yes [id number] TAKE 1 TABLET BY MOUTH IN THE MORNING AND IN THE EVENING. TAKE WITH FOOD. [facility] TIZANIDINE 4 mg tablet 2022-08 00:00: 00 Yes [id number] TAKE 1 TABLET BY MOUTH EVERY 8 HOURS NEEDED [facility] NYSTATIN 100,000 unit/mL suspension 2022-08 00:00: 00 Yes [id number] SHAKE LIQUID AND TAKE 5 ML BY MOUTH FOUR TIMES DAILY [facility] CARVEDILOL 6.25 mg tablet 2022-08 00:00: 00 Yes [id number] TAKE 1 TABLET BY MOUTH IN THE MORNING AND IN THE EVENING. TAKE WITH FOOD. [facility] TIZANIDINE 4 mg tablet 2022-08 00:00: 00 Yes [id number] TAKE 1 TABLET BY MOUTH EVERY 8 HOURS NEEDED [facility] NYSTATIN 100,000 unit/mL suspension 2022-08 00:00: 00 Yes [id number] SHAKE LIQUID AND TAKE 5 ML BY MOUTH FOUR TIMES DAILY [facility] CARVEDILOL 6.25 mg tablet 2022-08 00:00: 00 Yes [id number] TAKE 1 TABLET BY MOUTH IN THE MORNING AND IN THE EVENING. TAKE WITH FOOD. [facility] TIZANIDINE 4 mg tablet 2022-08 00:00: 00 Yes [id number] TAKE 1 TABLET BY MOUTH EVERY 8 HOURS [facility]ED [facility] [facility] NYSTATIN 100,000 unit/mL suspension 2022-08 00:00: 00 Yes [id number] SHAKE LIQUID AND TAKE 5 ML BY MOUTH FOUR TIMES DAILY [facility] CARVEDIL[facility] 6.25 mg tablet 2022-08 00:00: 00 Yes [id number] TAKE 1 TABLET BY MOUTH IN THE MORNING AND IN THE EVENING. TAKE WITH FOOD. [facility] TIZANIDINE 4 mg tablet 2022-08 00:00: 00 Yes [id number] TAKE 1 TABLET BY MOUTH EVERY 8 HOURS NEEDED [facility] NYSTATIN 100,000 unit/mL suspension 2022-08 00:00: 00 Yes [id number] SHAKE LIQUID AND TAKE 5 ML BY MOUTH FOUR TIMES DAILY [facility] CARVEDILOL 6.25 mg tablet 2022-08 00:00: 00 Yes [id number] TAKE 1 TABLET BY MOUTH IN THE MORNING AND IN THE EVENING. TAKE WITH FOOD. [facility] TIZANIDINE 4 mg tablet 2022-08 00:00: 00 Yes [id number] TAKE 1 TABLET BY MOUTH EVERY 8 HOURS NEEDED [facility] NYSTATIN 100,000 unit/mL suspension 2022-08 00:00: 00 Yes [id number] SHAKE LIQUID AND TAKE 5 ML BY MOUTH FOUR TIMES DAILY [facility] CARVEDILOL 6.25 mg tablet 2022-08 00:00: 00 Yes [id number] TAKE 1 TABLET BY MOUTH IN THE MORNING AND IN THE EVENING. TAKE WITH FOOD. [facility] TIZANIDINE 4 mg tablet 2022-08 00:00: 00 Yes [id number] TAKE 1 TABLET BY MOUTH EVERY 8 HOURS NEEDED [facility] [place]STATIN 100,000 unit/mL suspension 2022-08 00:00: 00 Yes [id number] SHAKE LIQUID AND TAKE 5 ML BY MOUTH FOUR TIMES DAILY [facility] CARVEDILOL 6.25 mg tablet 2022-08 00:00: 00 Yes [id number] TAKE 1 TABLET BY MOUTH IN THE MORNING AND IN THE EVENING. TAKE WITH FOOD. [facility] TIZANIDINE 4 mg tablet 2022-08 00:00: 00 Yes [id number] TAKE 1 TABLET BY MOUTH EVERY 8 HOURS NEEDED [facility] NYSTATIN 100,000 unit/mL suspension 2022-08 00:00: 00 Yes [id number] SHAKE LIQUID AND TAKE 5 ML BY MOUTH FOUR TIMES DAILY [facility] CARVEDILOL 6.25 mg tablet 2022-08 00:00: 00 Yes [id number] TAKE 1 TABLET BY MOUTH IN THE MORNING AND IN THE EVENING. TAKE WITH FOOD. [facility] TIZANIDINE 4 mg tablet 2022-08 00:00: 00 Yes [id number] TAKE 1 TABLET BY MOUTH EVERY 8 HOURS NEEDED [facility] NYSTATIN 100,000 unit/mL suspension 2022-08 00:00: 00 Yes [id number] SHAKE LIQUID AND TAKE 5 ML BY MOUTH FOUR TIMES DAILY [facility] CARVEDILOL 6.25 mg tablet 2022-08 00:00: 00 Yes [id number] TAKE 1 TABLET BY MOUTH IN THE MORNING AND IN THE EVENING. TAKE WITH FOOD. [facility] TIZANIDINE 4 mg tablet 2022-08 00:00: 00 Yes [id number] TAKE 1 TABLET BY MOUTH EVERY 8 HOURS NEEDED [facility] NYSTATIN 100,000 unit/mL suspension 2022-08 00:00: 00 Yes [id number] SHAKE LIQUID AND TAKE 5 ML BY MOUTH FOUR TIMES DAILY [facility] CARVEDILOL 6.25 mg tablet 2022-08 00:00: 00 Yes [id number] TAKE 1 TABLET BY MOUTH IN THE MORNING AND IN THE EVENING. TAKE WITH FOOD. [facility] TIZANIDINE 4 mg tablet 2023-1 0-11 00:00: 00 Yes [id number] TAKE 1 TABLET BY MOUTH EVERY 8 HOURS NEEDED [facility] CARVEDILOL 6.25 mg tablet 2022-1 0- 00:00: 00 Yes [id number] TAKE 1 TABLET BY MOUTH IN THE MORNING AND IN THE EVENING. TAKE WITH FOOD. [facility] TIZANIDINE 4 mg tablet 2022-1 0-11 00:00: 00 Yes [id number] TAKE 1 TABLET BY MOUTH EVERY 8 HOURS NEEDED [facility] CARVEDILOL 6.25 mg tablet 2022- 0- 00:00: 00 Yes [id number] TAKE 1 TABLET BY MOUTH IN THE MORNING AND IN THE EVENING. TAKE WITH FOOD. [facility] TIZANIDINE 4 mg tablet 2022-1 0- 00:00: 00 Yes [id number] TAKE 1 TABLET BY MOUTH EVERY 8 HOURS NEEDED [facility] CARVEDILOL 6.25 mg tablet 2022- 0- 00:00: 00 Yes [id number] TAKE 1 TABLET BY MOUTH IN THE MORNING AND IN THE EVENING. TAKE WITH FOOD. [facility] TIZANIDINE 4 mg tablet 2022-1 0-11 00:00: 00 Yes [id number] TAKE 1 TABLET BY MOUTH EVERY 8 HOURS NEEDED [facility] CARVEDILOL 6.25 mg tablet 2022-1 0- 00:00: 00 Yes [id number] TAKE 1 TABLET BY MOUTH IN THE MORNING AND IN THE EVENING. TAKE WITH FOOD. [facility] TIZANIDINE 4 mg tablet 2022-1 0-11 00:00: 00 Yes [id number] TAKE 1 TABLET BY MOUTH EVERY 8 HOURS NEEDED [facility] CARVEDILOL 6.25 mg tablet 2022-1 0-11 00:00: 00 Yes [id number] TAKE 1 TABLET BY MOUTH IN THE MORNING AND IN THE EVENING. TAKE WITH FOOD. [facility] TIZANIDINE 4 mg tablet 3-1 0-11 00:00: 00 Yes [id number] TAKE 1 TABLET BY MOUTH EVERY 8 HOURS NEEDED [facility] CARVEDILOL 6.25 mg tablet 3-1 0-11 00:00: 00 Yes [id number] TAKE 1 TABLET BY MOUTH IN THE MORNING AND IN THE EVENING. TAKE WITH FOOD. [facility] TIZANIDINE 4 mg tablet 2022- 0- 00:00: 00 Yes [id number] TAKE 1 TABLET BY MOUTH EVERY 8 HOURS NEEDED [facility] CARVEDILOL 6.25 mg tablet 2022- 0- 00:00: 00 Yes [id number] TAKE 1 TABLET BY MOUTH IN THE MORNING AND IN THE EVENING. TAKE WITH FOOD. [facility] TIZANIDINE 4 mg tablet 2022- 0-11 00:00: 00 Yes [id number] TAKE 1 TABLET BY MOUTH EVERY 8 HOURS NEEDED [facility] CARVEDILOL 6.25 mg tablet 2022- 0 00:00: 00 Yes [id number] TAKE 1 TABLET BY MOUTH IN THE MORNING AND IN THE EVENING. TAKE WITH FOOD. [facility] TIZANIDINE 4 mg tablet 2022- 0- 00:00: 00 Yes [id number] TAKE 1 TABLET BY MOUTH EVERY 8 HOURS NEEDED [facility] CARVEDILOL 6.25 mg tablet 2022- 0 00:00: 00 Yes [id number] TAKE 1 TABLET BY MOUTH IN THE MORNING AND IN THE EVENING. TAKE WITH FOOD. [facility] TIZANIDINE 4 mg tablet 2022- 0 00:00: 00 Yes [id number] TAKE 1 TABLET BY MOUTH EVERY 8 HOURS NEEDED [facility] CARVEDILOL 6.25 mg tablet 2022- 0- 00:00: 00 Yes [id number] TAKE 1 TABLET BY MOUTH IN THE MORNING AND IN THE EVENING. TAKE WITH FOOD. [facility] TIZANIDINE 4 mg tablet 2022- 0-11 00:00: 00 Yes [id number] TAKE 1 TABLET BY MOUTH EVERY 8 HOURS NEEDED [facility] CARVEDILOL 6.25 mg tablet 2022- 0- 00:00: 00 Yes [id number] TAKE 1 TABLET BY MOUTH IN THE MORNING AND IN THE EVENING. TAKE WITH FOOD. [facility] CARVEDILOL 6.25 mg tablet 2022-1 0-11 00:00: 00 Yes [id number] TAKE 1 TABLET BY MOUTH IN THE MORNING AND IN THE EVENING. TAKE WITH FOOD. [facility] CARVEDILOL 6.25 mg tablet 3-1 0-11 00:00: 00 Yes [id number] TAKE 1 TABLET BY MOUTH IN THE MORNING AND IN THE EVENING. TAKE WITH FOOD. [facility] CARVEDILOL 6.25 mg tablet 2022-1 0-11 00:00: 00 Yes [id number] TAKE 1 TABLET BY MOUTH IN THE MORNING AND IN THE EVENING. TAKE WITH FOOD. [facility] CARVEDILOL 6.25 mg tablet 2022-1 0-11 00:00: 00 Yes [id number] TAKE 1 TABLET BY MOUTH IN THE MORNING AND IN THE EVENING. TAKE WITH FOOD. [facility] CARVEDILOL 6.25 mg tablet 2022-1 0-11 00:00: 00 Yes [id number] TAKE 1 TABLET BY MOUTH IN THE MORNING AND IN THE EVENING. TAKE WITH FOOD. [facility] CARVEDILOL 6.25 mg tablet 2022-1 0-11 00:00: 00 Yes [id number] TAKE 1 TABLET BY MOUTH IN THE MORNING AND IN THE EVENING. TAKE WITH FOOD. [facility] CARVEDILOL 6.25 mg tablet 2022-1 0-11 00:00: 00 Yes [id number] TAKE 1 TABLET BY MOUTH IN THE MORNING AND IN THE EVENING. TAKE WITH FOOD. [facility] CARVEDILOL 6.25 mg tablet 2022-1 0-11 00:00: 00 Yes [id number] TAKE 1 TABLET BY MOUTH IN THE MORNING AND IN THE EVENING. TAKE WITH FOOD. [facility] CARVEDILOL 6.25 mg tablet 3-1 0-11 00:00: 00 Yes [id number] TAKE 1 TABLET BY MOUTH IN THE MORNING AND IN THE EVENING. TAKE WITH FOOD. [facility] CARVEDILOL 6.25 mg tablet 3-1 0-11 00:00: 00 Yes [id number] TAKE 1 TABLET BY MOUTH IN THE MORNING AND IN THE EVENING. TAKE WITH FOOD. [facility] TIZANIDINE 4 mg tablet 2022- 0-11 00:00: 00 08-10 00:00 :00 No [id number] TAKE 1 TABLET BY MOUTH EVERY 8 HOURS NEEDED [facility] NYSTATIN 100,000 unit/mL suspension 2022-08 0- 00:00: 00 07-09 00:00 :00 No [id number] SHAKE LIQUID AND TAKE 5 ML BY MOUTH FOUR TIMES DAILY [facility] NYSTATIN 100,000 unit/mL suspension 2022-08 0- 00:00: 00 07-09 00:00 :00 No [id number] SHAKE LIQUID AND TAKE 5 ML BY MOUTH FOUR TIMES DAILY [facility] LISINOPRIL 20 mg tablet 2022-08 0 00:00: 00 05-20 00:00 :00 No [id number] 20mg TAKE 1 TABLET BY MOUTH IN THE MORNING [facility] neomycin-po lymyxin-gra micidin ophthalmic drops 2022-08 0 00:00: 00 Yes [id number] 1[drp] Place 1 Drop in left eye in the morning and 1 Drop in the evening. [facility] neomycin-po lymyxin-gra micidin ophthalmic drops 2022-08 0 00:00: 00 Yes [id number] 1[drp] Place 1 Drop in left eye in the morning and 1 Drop in the evening. [facility] neomycin-po lymyxin-gra micidin ophthalmic drops 2022-08 0 00:00: 00 Yes [id number] 1[drp] Place 1 Drop in left eye in the morning and 1 Drop in the evening. [facility] neomycin-po lymyxin-gra micidin ophthalmic drops 2022-08 0 00:00: 00 Yes [id number] 1[drp] Place 1 Drop in left eye in the morning and 1 Drop in the evening. [facility] neomycin-po lymyxin-gra micidin ophthalmic drops 2022-08 0 00:00: 00 Yes [id number] 1[drp] Place 1 Drop in left eye in the morning and 1 Drop in the evening. [facility] neomycin-po lymyxin-gra micidin ophthalmic drops 2022-08 0 00:00: 00 Yes [id number] 1[drp] Place 1 Drop in left eye in the morning and 1 Drop in the evening. [facility] neomycin-po lymyxin-gra micidin ophthalmic drops 2022-08 0-09 00:00: 00 Yes [id number] 1[drp] Place 1 Drop in left eye in the morning and 1 Drop in the evening. [facility] neomycin-po lymyxin-gra micidin ophthalmic drops 2022-08 0- 00:00: 00 Yes [id number] 1[drp] Place 1 Drop in left eye in the morning and 1 Drop in the evening. [facility] neomycin-po lymyxin-gra micidin ophthalmic drops 2022-08 0- 00:00: 00 Yes [id number] 1[drp] Place 1 Drop in left eye in the morning and 1 Drop in the evening. [facility] neomycin-po lymyxin-gra micidin ophthalmic drops 2022-08 0- 00:00: 00 Yes [id number] 1[drp] Place 1 Drop in left eye in the morning and 1 Drop in the evening. [facility] neomycin-po lymyxin-gra micidin ophthalmic drops 2022-08 0 00:00: 00 Yes [id number] 1[drp] Place 1 Drop in left eye in the morning and 1 Drop in the evening. [facility] neomycin-po lymyxin-gra micidin ophthalmic drops 2022-08 0 00:00: 00 Yes [id number] 1[drp] Place 1 Drop in left eye in the morning and 1 Drop in the evening. [facility] neomycin-po lymyxin-gra micidin ophthalmic drops 2022-08 0- 00:00: 00 Yes [id number] 1[drp] Place 1 Drop in left eye in the morning and 1 Drop in the evening. [facility] neomycin-po lymyxin-gra micidin ophthalmic drops 2022-08 0- 00:00: 00 Yes [id number] 1[drp] Place 1 Drop in left eye in the morning and 1 Drop in the evening. [facility] neomycin-po lymyxin-gra micidin ophthalmic drops 2022-08 0-09 00:00: 00 Yes [id number] 1[drp] Place 1 Drop in left eye in the morning and 1 Drop in the evening. [facility] neomycin-po lymyxin-gra micidin ophthalmic drops 2022-08 0-09 00:00: 00 Yes [id number] 1[drp] Place 1 Drop in left eye in the morning and 1 Drop in the evening. [facility] neomycin-po lymyxin-gra micidin ophthalmic drops 2022-08 0 00:00: 00 Yes [id number] 1[drp] Place 1 Drop in left eye in the morning and 1 Drop in the evening. [facility] neomycin-po lymyxin-gra micidin ophthalmic drops 2022-08 0- 00:00: 00 Yes [id number] 1[drp] Place 1 Drop in left eye in the morning and 1 Drop in the evening. [facility] neomycin-po lymyxin-gra micidin ophthalmic drops 2022-08 0 00:00: 00 Yes [id number] 1[drp] Place 1 Drop in left eye in the morning and 1 Drop in the evening. [facility] neomycin-po lymyxin-gra micidin ophthalmic drops 2022-08 0 00:00: 00 Yes [id number] 1[drp] Place 1 Drop in left eye in the morning and 1 Drop in the evening. [facility] neomycin-po lymyxin-gra micidin ophthalmic drops 2022-08 0 00:00: 00 Yes [id number] 1[drp] Place 1 Drop in left eye in the morning and 1 Drop in the evening. [facility] neomycin-po lymyxin-gra micidin ophthalmic drops 2022-08 0- 00:00: 00 07-09 00:00 :00 No [id number] 1[drp] Place 1 Drop in left eye in the morning and 1 Drop in the evening. [facility] neomycin-po lymyxin-gra micidin ophthalmic drops 2022-08 0- 00:00: 00 07-09 00:00 :00 No [id number] 1[drp] Place 1 Drop in left eye in the morning and 1 Drop in the evening. [facility] FLUCONAZOLE 150 mg tablet 3-0 28 00:00: 00 Yes [id number] TAKE 1 TABLET BY MOUTH 1 TIME NOW FOR 1 DOSE [facility] FLUCONAZOLE 150 mg tablet 3-0 04-30 00:00: 00 Yes [id number] TAKE 1 TABLET BY MOUTH 1 TIME NOW FOR 1 DOSE [facility] GABAPENTIN 300 mg capsule 3-0 04-30 00:00: 00 Yes [id number] TAKE 1 CAPSULE BY MOUTH FOUR TIMES DAILY [facility] FLUCONAZOLE 150 mg tablet 3-0 28 00:00: 00 Yes [id number] TAKE 1 TABLET BY MOUTH 1 TIME NOW FOR 1 DOSE [facility] GABAPENTIN 300 mg capsule 3-0 28 00:00: 00 Yes [id number] TAKE 1 CAPSULE BY MOUTH FOUR TIMES DAILY [facility] FLUCONAZOLE 150 mg tablet 3-0 28 00:00: 00 Yes [id number] TAKE 1 TABLET BY MOUTH 1 TIME NOW FOR 1 DOSE [facility] GABAPENTIN 300 mg capsule 3-0 28 00:00: 00 Yes [id number] TAKE 1 CAPSULE BY MOUTH FOUR TIMES DAILY [facility] FLUCONAZOLE 150 mg tablet 3-0 04-30 00:00: 00 Yes [id number] TAKE 1 TABLET BY MOUTH 1 TIME NOW FOR 1 DOSE [facility] GABAPENTIN 300 mg capsule 3-0 28 00:00: 00 Yes [id number] TAKE 1 CAPSULE BY MOUTH FOUR TIMES DAILY [facility] FLUCONAZOLE 150 mg tablet 3-0 28 00:00: 00 Yes [id number] TAKE 1 TABLET BY MOUTH 1 TIME NOW FOR 1 DOSE [facility] GABAPENTIN 300 mg capsule 3-0 28 00:00: 00 Yes [id number] TAKE 1 CAPSULE BY MOUTH FOUR TIMES DAILY [facility] FLUCONAZOLE 150 mg tablet 3-0 -28 00:00: 00 Yes [id number] TAKE 1 TABLET BY MOUTH 1 TIME NOW FOR 1 DOSE [facility] GABAPENTIN 300 mg capsule 3-0 28 00:00: 00 Yes [id number] TAKE 1 CAPSULE BY MOUTH FOUR TIMES DAILY [facility] FLUCONAZOLE 150 mg tablet 3-0 28 00:00: 00 Yes [id number] TAKE 1 TABLET BY MOUTH 1 TIME NOW FOR 1 DOSE [facility] GABAPENTIN 300 mg capsule 3-0 - 00:00: 00 Yes [id number] TAKE 1 CAPSULE BY MOUTH FOUR TIMES DAILY [facility] FLUCONAZOLE 150 mg tablet 3-0 -28 00:00: 00 Yes [id number] TAKE 1 TABLET BY MOUTH 1 TIME NOW FOR 1 DOSE [facility] GABAPENTIN 300 mg capsule 3-0 04-30 00:00: 00 Yes [id number] TAKE 1 CAPSULE BY MOUTH FOUR TIMES DAILY [facility] FLUCONAZOLE 150 mg tablet 3-0 04-30 00:00: 00 Yes [id number] TAKE 1 TABLET BY MOUTH 1 TIME NOW FOR 1 DOSE [facility] GAB[facility] 300 mg capsule 3-0 28 00:00: 00 Yes [id number] TAKE 1 CAPSULE BY MOUTH FOUR TIMES DAILY [facility] FLUCONAZOLE 150 mg tablet 3-0 28 00:00: 00 Yes [id number] TAKE 1 TABLET BY MOUTH 1 TIME NOW FOR 1 DOSE [facility] GABAPENTIN 300 mg capsule 3-0 28 00:00: 00 Yes [id number] TAKE 1 CAPSULE BY MOUTH FOUR TIMES DAILY [facility] FLUCONAZOLE 150 mg tablet 3-0 28 00:00: 00 Yes [id number] TAKE 1 TABLET BY MOUTH 1 TIME NOW FOR 1 DOSE [facility] GABAPENTIN 300 mg capsule 3-0 28 00:00: 00 Yes [id number] TAKE 1 CAPSULE BY MOUTH FOUR TIMES DAILY [facility] FLUCONAZOLE 150 mg tablet 3-0 28 00:00: 00 Yes [id number] TAKE 1 TABLET BY MOUTH 1 TIME NOW FOR 1 DOSE [facility] GABAPENTIN 300 mg capsule 3-0 28 00:00: 00 Yes [id number] TAKE 1 CAPSULE BY MOUTH FOUR TIMES DAILY [facility] FLUCONAZOLE 150 mg tablet 3-0 -28 00:00: 00 Yes [id number] TAKE 1 TABLET BY MOUTH 1 TIME NOW FOR 1 DOSE [facility] GABAPENTIN 300 mg capsule 3-0 9-28 00:00: 00 Yes [id number] TAKE 1 CAPSULE BY MOUTH FOUR TIMES DAILY [facility] FLUCONAZOLE 150 mg tablet 3-0 04-30 00:00: 00 Yes [id number] TAKE 1 TABLET BY MOUTH 1 TIME NOW FOR 1 DOSE [facility] GABAPENTIN 300 mg capsule 3-0 04-30 00:00: 00 Yes [id number] TAKE 1 CAPSULE BY MOUTH FOUR TIMES DAILY [facility] FLUCONAZOLE 150 mg tablet 3-0 04-30 00:00: 00 Yes [id number] TAKE 1 TABLET BY MOUTH 1 TIME NOW FOR 1 DOSE [facility] GABAPENTIN 300 mg capsule 3-0 04-30 00:00: 00 Yes [id number] TAKE 1 CAPSULE BY MOUTH FOUR TIMES DAILY [facility] FLUCONAZOLE 150 mg tablet 3-0 04-30 00:00: 00 Yes [id number] TAKE 1 TABLET BY MOUTH 1 TIME NOW FOR 1 DOSE [facility] GABAPENTIN 300 mg capsule 3-0 04-30 00:00: 00 Yes [id number] TAKE 1 CAPSULE BY MOUTH FOUR TIMES DAILY [facility] FLUCONAZOLE 150 mg tablet 3-0 04-30 00:00: 00 Yes [id number] TAKE 1 TABLET BY MOUTH 1 TIME NOW FOR 1 DOSE [facility] GABAPENTIN 300 mg capsule 3-0 04-30 00:00: 00 Yes [id number] TAKE 1 CAPSULE BY MOUTH FOUR TIMES DAILY [facility] FLUCONAZOLE 150 mg tablet 3-0 28 00:00: 00 Yes [id number] TAKE 1 TABLET BY MOUTH 1 TIME NOW FOR 1 DOSE [facility] GABAPENTIN 300 mg capsule 3-0 28 00:00: 00 Yes [id number] TAKE 1 CAPSULE BY MOUTH FOUR TIMES DAILY [facility] FLUCONAZOLE 150 mg tablet 3-0 04-30 00:00: 00 Yes [id number] TAKE 1 TABLET BY MOUTH 1 TIME NOW FOR 1 DOSE [facility] GABAPENTIN 300 mg capsule 3-0 28 00:00: 00 Yes [id number] TAKE 1 CAPSULE BY MOUTH FOUR TIMES DAILY [facility] FLUCONAZOLE 150 mg tablet 3-0 28 00:00: 00 Yes [id number] TAKE 1 TABLET BY MOUTH 1 TIME NOW FOR 1 DOSE [facility] GABAPENTIN 300 mg capsule 3-0 28 00:00: 00 Yes [id number] TAKE 1 CAPSULE BY MOUTH FOUR TIMES DAILY [facility] FLUCONAZOLE 150 mg tablet 3-0 04-30 00:00: 00 Yes [id number] TAKE 1 TABLET BY MOUTH 1 TIME NOW FOR 1 DOSE [facility] GABAPENTIN 300 mg capsule 3-0 04-30 00:00: 00 Yes [id number] TAKE 1 CAPSULE BY MOUTH FOUR TIMES DAILY [facility] FLUCONAZOLE 150 mg tablet 3-0 04-30 00:00: 00 Yes [id number] TAKE 1 TABLET BY MOUTH 1 TIME NOW FOR 1 DOSE [facility] GABAPENTIN 300 mg capsule 3-0 04-30 00:00: 00 Yes [id number] TAKE 1 CAPSULE BY MOUTH FOUR TIMES DAILY [facility] FLUCONAZOLE 150 mg tablet 3-0 04-30 00:00: 00 Yes [id number] TAKE 1 TABLET BY MOUTH 1 TIME NOW FOR 1 DOSE [facility] GABAPENTIN 300 mg capsule 3-0 04-30 00:00: 00 Yes [id number] TAKE 1 CAPSULE BY MOUTH FOUR TIMES DAILY [facility] FLUCONAZOLE 150 mg tablet 3-0 04-30 00:00: 00 Yes [id number] TAKE 1 TABLET BY MOUTH 1 TIME NOW FOR 1 DOSE [facility] GABAPENTIN 300 mg capsule 3-0 04-30 00:00: 00 Yes [id number] TAKE 1 CAPSULE BY MOUTH FOUR TIMES DAILY [facility] FLUCONAZOLE 150 mg tablet 3-0 28 00:00: 00 Yes [id number] TAKE 1 TABLET BY MOUTH 1 TIME NOW FOR 1 DOSE [facility] GABAPENTIN 300 mg capsule 3-0 04-30 00:00: 00 Yes [id number] TAKE 1 CAPSULE BY MOUTH FOUR TIMES DAILY [facility] FLUCONAZOLE 150 mg tablet 3-0 04-30 00:00: 00 Yes [id number] TAKE 1 TABLET BY MOUTH 1 TIME NOW FOR 1 DOSE [facility] GABAPENTIN 300 mg capsule 3-0 28 00:00: 00 Yes [id number] TAKE 1 CAPSULE BY MOUTH FOUR TIMES DAILY [facility] FLUCONAZOLE 150 mg tablet 2022-0 9-28 00:00: 00 Yes [id number] TAKE 1 TABLET BY MOUTH 1 TIME NOW FOR 1 DOSE [facility] GABAPENTIN 300 mg capsule 2022-0 04-30 00:00: 00 Yes [id number] TAKE 1 CAPSULE BY MOUTH FOUR TIMES DAILY [facility] FLUCONAZOLE 150 mg tablet 3-0 04-30 00:00: 00 Yes [id number] TAKE 1 TABLET BY MOUTH 1 TIME NOW FOR 1 DOSE [facility] GABAPENTIN 300 mg capsule 2022-0 04-30 00:00: 00 Yes [id number] TAKE 1 CAPSULE BY MOUTH FOUR TIMES DAILY [facility] FLUCONAZOLE 150 mg tablet 3-0 04-30 00:00: 00 Yes [id number] TAKE 1 TABLET BY MOUTH 1 TIME NOW FOR 1 DOSE [facility] GABAPENTIN 300 mg capsule 2022-0 04-30 00:00: 00 Yes [id number] TAKE 1 CAPSULE BY MOUTH FOUR TIMES DAILY [facility] FLUCONAZOLE 150 mg tablet 2022-0 04-30 00:00: 00 Yes [id number] TAKE 1 TABLET BY MOUTH 1 TIME NOW FOR 1 DOSE [facility] GABAPENTIN 300 mg capsule 2022-0 04-30 00:00: 00 Yes [id number] TAKE 1 CAPSULE BY MOUTH FOUR TIMES DAILY [facility] FLUCONAZOLE 150 mg tablet 2022-0 04-30 00:00: 00 Yes [id number] TAKE 1 TABLET BY MOUTH 1 TIME NOW FOR 1 DOSE [facility] FLUCONAZOLE 150 mg tablet 3-0 04-30 00:00: 00 Yes [id number] TAKE 1 TABLET BY MOUTH 1 TIME NOW FOR 1 DOSE [facility] FLUCONAZOLE 150 mg tablet 3-0 04-30 00:00: 00 Yes [id number] TAKE 1 TABLET BY MOUTH 1 TIME NOW FOR 1 DOSE [facility] FLUCONAZOLE 150 mg tablet 3-0 04-30 00:00: 00 Yes [id number] TAKE 1 TABLET BY MOUTH 1 TIME NOW FOR 1 DOSE [facility] FLUCONAZOLE 150 mg tablet 3-0 04-30 00:00: 00 Yes [id number] TAKE 1 TABLET BY MOUTH 1 TIME NOW FOR 1 DOSE [facility] FLUCONAZOLE 150 mg tablet 3-0 28 00:00: 00 Yes [id number] TAKE 1 TABLET BY MOUTH 1 TIME NOW FOR 1 DOSE [facility] FLUCONAZOLE 150 mg tablet 0 04-30 00:00: 00 Yes [id number] TAKE 1 TABLET BY MOUTH 1 TIME NOW FOR 1 DOSE [facility] FLUCONAZOLE 150 mg tablet 0 04-30 00:00: 00 Yes [id number] TAKE 1 TABLET BY MOUTH 1 TIME NOW FOR 1 DOSE [facility] FLUCONAZOLE 150 mg tablet 0 04-30 00:00: 00 Yes [id number] TAKE 1 TABLET BY MOUTH 1 TIME NOW FOR 1 DOSE [facility] FLUCONAZOLE 150 mg tablet 2022-0 04-30 00:00: 00 Yes [id number] TAKE 1 TABLET BY MOUTH 1 TIME NOW FOR 1 DOSE [facility] FLUCONAZOLE 150 mg tablet 0 04-30 00:00: 00 Yes [id number] TAKE 1 TABLET BY MOUTH 1 TIME NOW FOR 1 DOSE [facility] FLUCONAZOLE 150 mg tablet 2022-0 04-30 00:00: 00 Yes [id number] TAKE 1 TABLET BY MOUTH 1 TIME NOW FOR 1 DOSE [facility] [facility] FLUCONAZOLE 150 mg tablet 0 04-30 00:00: 00 Yes [id number] TAKE 1 TABLET BY MOUTH 1 TIME NOW FOR 1 DOSE [facility] FLUCONAZOLE 150 mg tablet 0 04-30 00:00: 00 Yes [id number] TAKE 1 TABLET BY MOUTH 1 TIME NOW FOR 1 DOSE [facility] FLUCONAZOLE 150 mg tablet 0 04-30 00:00: 00 Yes [id number] TAKE 1 TABLET BY MOUTH 1 TIME NOW FOR 1 DOSE [facility] FLUCONAZOLE 150 mg tablet 0 04-30 00:00: 00 Yes [id number] TAKE 1 TABLET BY MOUTH 1 TIME NOW FOR 1 DOSE [facility] GABAPENTIN 300 mg capsule 2022-0 04-30 00:00: 00 07-30 00:00 :00 No [id number] TAKE 1 CAPSULE BY MOUTH FOUR TIMES DAILY [facility] GABAPENTIN 300 mg capsule 2022-0 04-30 00:00: 00 07-30 00:00 :00 No [id number] TAKE 1 CAPSULE BY MOUTH FOUR TIMES DAILY [facility] [place] GABAPENTIN 300 mg capsule 0 04-30 00:00: 00 07-30 00:00 :00 No [id number] TAKE 1 CAPSULE BY MOUTH FOUR TIMES DAILY [facility] FUROSEMIDE 80 mg tablet 2022-0 04-13 00:00: 00 Yes [id number] 80mg TAKE 1 TABLET BY MOUTH IN THE MORNING [facility] SPIRONOLACT ONE 25 mg tablet 2022-0 04-13 00:00: 00 Yes [id number] TAKE 1 TABLET BY MOUTH IN THE MORNING AND IN THE EVENING [facility] FUROSEMIDE 80 mg tablet 2022-0 04-13 00:00: 00 Yes [id number] 80mg TAKE 1 TABLET BY MOUTH IN THE MORNING [facility] SPIRONOLACT ONE 25 mg tablet 2022-0 04-13 00:00: 00 Yes [id number] TAKE 1 TABLET BY MOUTH IN THE MORNING AND IN THE EVENING [facility] FUROSEMIDE 80 mg tablet 3-0 04-13 00:00: 00 Yes [id number] 80mg TAKE 1 TABLET BY MOUTH IN THE MORNING [facility] SPIRONOLACT ONE 25 mg tablet 2022-0 04-13 00:00: 00 Yes [id number] TAKE 1 TABLET BY MOUTH IN THE MORNING AND IN THE EVENING [facility] FUROSEMIDE 80 mg tablet 2022-0 04-13 00:00: 00 Yes [id number] 80mg TAKE 1 TABLET BY MOUTH IN THE MORNING [facility] SPIRONOLACT ONE 25 mg tablet 3-0 04-13 00:00: 00 Yes [id number] TAKE 1 TABLET BY MOUTH IN THE MORNING AND IN THE EVENING [facility] FUROSEMIDE 80 mg tablet 3-0 04-13 00:00: 00 Yes [id number] 80mg TAKE 1 TABLET BY MOUTH IN THE MORNING [facility] SPIRONOLACT ONE 25 mg tablet 3-0 04-13 00:00: 00 Yes [id number] TAKE 1 TABLET BY MOUTH IN THE MORNING AND IN THE EVENING [facility] FUROSEMIDE 80 mg tablet 3-0 - 00:00: 00 Yes [id number] 80mg TAKE 1 TABLET BY MOUTH IN THE MORNING [facility] SPIRONOLACT ONE 25 mg tablet 3-0 04-13 00:00: 00 Yes [id number] TAKE 1 TABLET BY MOUTH IN THE MORNING AND IN THE EVENING [facility] FUROSEMIDE 80 mg tablet 3-0 04-13 00:00: 00 Yes [id number] 80mg TAKE 1 TABLET BY MOUTH IN THE MORNING [facility] SPIRONOLACT ONE 25 mg tablet 3-0 04-13 00:00: 00 Yes [id number] TAKE 1 TABLET BY MOUTH IN THE MORNING AND IN THE EVENING [facility] FUROSEMIDE 80 mg tablet 3-0 04-13 00:00: 00 Yes [id number] 80mg TAKE 1 TABLET BY MOUTH IN THE MORNING [facility] SPIRONOLACT ONE 25 mg tablet 3-0 04-13 00:00: 00 Yes [id number] TAKE 1 TABLET BY MOUTH IN THE MORNING AND IN THE EVENING [facility] FUROSEMIDE 80 mg tablet 3-0 04-13 00:00: 00 Yes [id number] 80mg TAKE 1 TABLET BY MOUTH IN THE MORNING [facility] SPIRONOLACT ONE 25 mg tablet 2022-0 04-13 00:00: 00 Yes [id number] TAKE 1 TABLET BY MOUTH IN THE MORNING AND IN THE EVENING [facility] FUROSEMIDE 80 mg tablet 3-0 04-13 00:00: 00 Yes [id number] 80mg TAKE 1 TABLET BY MOUTH IN THE MORNING [facility] SPIRONOLACT ONE 25 mg tablet 3-0 04-13 00:00: 00 Yes [id number] TAKE 1 TABLET BY MOUTH IN THE MORNING AND IN THE EVENING [facility] FUROSEMIDE 80 mg tablet 3-0 04-13 00:00: 00 Yes [id number] 80mg TAKE 1 TABLET BY MOUTH IN THE MORNING [facility] SPIRONOLACT ONE 25 mg tablet 3-0 04-13 00:00: 00 Yes [id number] TAKE 1 TABLET BY MOUTH IN THE MORNING AND IN THE EVENING [facility] FUROSEMIDE 80 mg tablet 3-0 - 00:00: 00 Yes [id number] 80mg TAKE 1 TABLET BY MOUTH IN THE MORNING [facility] SPIRONOLACT ONE 25 mg tablet 3-0 04-13 00:00: 00 Yes [id number] TAKE 1 TABLET BY MOUTH IN THE MORNING AND IN THE EVENING [facility] FUROSEMIDE 80 mg tablet 2023-0 9-11 00:00: 00 Yes [id number] 80mg TAKE 1 TABLET BY MOUTH IN THE MORNING [facility] SPIRONOLACT ONE 25 mg tablet 3-0 -11 00:00: 00 Yes [id number] TAKE 1 TABLET BY MOUTH IN THE MORNING AND IN THE EVENING [facility] FUROSEMIDE 80 mg tablet 3-0 -11 00:00: 00 Yes [id number] 80mg TAKE 1 TABLET BY MOUTH IN THE MORNING [facility] SPIRONOLACT ONE 25 mg tablet 3-0 -11 00:00: 00 Yes [id number] TAKE 1 TABLET BY MOUTH IN THE MORNING AND IN THE EVENING [facility] FUROSEMIDE 80 mg tablet 3-0 -11 00:00: 00 Yes [id number] 80mg TAKE 1 TABLET BY MOUTH IN THE MORNING [facility] SPIRONOLACT ONE 25 mg tablet 3-0 -11 00:00: 00 Yes [id number] TAKE 1 TABLET BY MOUTH IN THE MORNING AND IN THE EVENING [facility] FUROSEMIDE 80 mg tablet 3-0 -11 00:00: 00 Yes [id number] 80mg TAKE 1 TABLET BY MOUTH IN THE MORNING [facility] SPIRONOLACT ONE 25 mg tablet 3-0 -11 00:00: 00 Yes [id number] TAKE 1 TABLET BY MOUTH IN THE MORNING AND IN THE EVENING [facility] FUROSEMIDE 80 mg tablet 3-0 -11 00:00: 00 Yes [id number] 80mg TAKE 1 TABLET BY MOUTH IN THE MORNING [facility] SPIRONOLACT ONE 25 mg tablet 3-0 -11 00:00: 00 Yes [id number] TAKE 1 TABLET BY MOUTH IN THE MORNING AND IN THE EVENING [facility] FUROSEMIDE 80 mg tablet 3-0 9-11 00:00: 00 Yes [id number] 80mg TAKE 1 TABLET BY MOUTH IN THE MORNING [facility] SPIRONOLACT ONE 25 mg tablet 2023-0 9-11 00:00: 00 Yes [id number] TAKE 1 TABLET BY MOUTH IN THE MORNING AND IN THE EVENING [facility] FUROSEMIDE 80 mg tablet 3-0 -11 00:00: 00 Yes [id number] 80mg TAKE 1 TABLET BY MOUTH IN THE MORNING [facility] SPIRONOLACT ONE 25 mg tablet 2022-0 - 00:00: 00 Yes [id number] TAKE 1 TABLET BY MOUTH IN THE MORNING AND IN THE EVENING [facility] FUROSEMIDE 80 mg tablet 3-0 -11 00:00: 00 Yes [id number] 80mg TAKE 1 TABLET BY MOUTH IN THE MORNING [facility] SPIRONOLACT ONE 25 mg tablet 2022-0 -11 00:00: 00 Yes [id number] TAKE 1 TABLET BY MOUTH IN THE MORNING AND IN THE EVENING [facility] FUROSEMIDE 80 mg tablet 2022-0 -11 00:00: 00 Yes [id number] 80mg TAKE 1 TABLET BY MOUTH IN THE MORNING [facility] SPIRONOLACT ONE 25 mg tablet 3-0 - 00:00: 00 Yes [id number] TAKE 1 TABLET BY MOUTH IN THE MORNING AND IN THE EVENING [facility] FUROSEMIDE 80 mg tablet 3-0 -11 00:00: 00 Yes [id number] 80mg TAKE 1 TABLET BY MOUTH IN THE MORNING [facility] SPIRONOLACT ONE 25 mg tablet 3-0 - 00:00: 00 Yes [id number] TAKE 1 TABLET BY MOUTH IN THE MORNING AND IN THE EVENING [facility] FUROSEMIDE 80 mg tablet 3-0 -11 00:00: 00 Yes [id number] 80mg TAKE 1 TABLET BY MOUTH IN THE MORNING [facility] SPIRONOLACT ONE 25 mg tablet 3-0 -11 00:00: 00 Yes [id number] TAKE 1 TABLET BY MOUTH IN THE MORNING AND IN THE EVENING [facility] FUROSEMIDE 80 mg tablet 3-0 -11 00:00: 00 Yes [id number] 80mg TAKE 1 TABLET BY MOUTH IN THE MORNING [facility] SPIRONOLACT ONE 25 mg tablet 3-0 -11 00:00: 00 Yes [id number] TAKE 1 TABLET BY MOUTH IN THE MORNING AND IN THE EVENING [facility] FUROSEMIDE 80 mg tablet 3-0 11 00:00: 00 Yes [id number] 80mg TAKE 1 TABLET BY MOUTH IN THE MORNING [facility] SPIRONOLACT ONE 25 mg tablet 2022-0 -11 00:00: 00 Yes [id number] TAKE 1 TABLET BY MOUTH IN THE MORNING AND IN THE EVENING [facility] FUROSEMIDE 80 mg tablet 3-0 -11 00:00: 00 Yes [id number] 80mg TAKE 1 TABLET BY MOUTH IN THE MORNING [facility] SPIRONOLACT ONE 25 mg tablet 3-0 -11 00:00: 00 Yes [id number] TAKE 1 TABLET BY MOUTH IN THE MORNING AND IN THE EVENING [facility] FUROSEMIDE 80 mg tablet 3-0 -11 00:00: 00 Yes [id number] 80mg TAKE 1 TABLET BY MOUTH IN THE MORNING [facility] SPIRONOLACT ONE 25 mg tablet 2022-0 - 00:00: 00 Yes [id number] TAKE 1 TABLET BY MOUTH IN THE MORNING AND IN THE EVENING [facility] FUROSEMIDE 80 mg tablet 3-0 -11 00:00: 00 Yes [id number] 80mg TAKE 1 TABLET BY MOUTH IN THE MORNING [facility] SPIRONOLACT ONE 25 mg tablet 2022-0 -11 00:00: 00 Yes [id number] TAKE 1 TABLET BY MOUTH IN THE MORNING AND IN THE EVENING [facility] FUROSEMIDE 80 mg tablet 3-0 -11 00:00: 00 Yes [id number] 80mg TAKE 1 TABLET BY MOUTH IN THE MORNING [facility] SPIRONOLACT ONE 25 mg tablet 3-0 -11 00:00: 00 Yes [id number] TAKE 1 TABLET BY MOUTH IN THE MORNING AND IN THE EVENING [facility] FUROSEMIDE 80 mg tablet 3-0 -11 00:00: 00 Yes [id number] 80mg TAKE 1 TABLET BY MOUTH IN THE MORNING [facility] SPIRONOLACT ONE 25 mg tablet 3-0 -11 00:00: 00 Yes [id number] TAKE 1 TABLET BY MOUTH IN THE MORNING AND IN THE EVENING [facility] FUROSEMIDE 80 mg tablet 2022-0 -11 00:00: 00 Yes [id number] 80mg TAKE 1 TABLET BY MOUTH IN THE MORNING [facility] SPIRONOLACT ONE 25 mg tablet 3-0 -11 00:00: 00 Yes [id number] TAKE 1 TABLET BY MOUTH IN THE MORNING AND IN THE EVENING [facility] FUROSEMIDE 80 mg tablet 3-0 -11 00:00: 00 Yes [id number] 80mg TAKE 1 TABLET BY MOUTH IN THE MORNING [facility] SPIRONOLACT ONE 25 mg tablet 3-0 -11 00:00: 00 Yes [id number] TAKE 1 TABLET BY MOUTH IN THE MORNING AND IN THE EVENING [facility] FUROSEMIDE 80 mg tablet 3-0 -11 00:00: 00 Yes [id number] 80mg TAKE 1 TABLET BY MOUTH IN THE MORNING [facility] SPIRONOLACT ONE 25 mg tablet 3-0 -11 00:00: 00 Yes [id number] TAKE 1 TABLET BY MOUTH IN THE MORNING AND IN THE EVENING [facility] FUROSEMIDE 80 mg tablet 3-0 -11 00:00: 00 Yes [id number] 80mg TAKE 1 TABLET BY MOUTH IN THE MORNING [facility] SPIRONOLACT ONE 25 mg tablet 3-0 -11 00:00: 00 Yes [id number] TAKE 1 TABLET BY MOUTH IN THE MORNING AND IN THE EVENING [facility] FUROSEMIDE 80 mg tablet 3-0 -11 00:00: 00 Yes [id number] 80mg TAKE 1 TABLET BY MOUTH IN THE MORNING [facility] SPIRONOLACT ONE 25 mg tablet 3-0 -11 00:00: 00 Yes [id number] TAKE 1 TABLET BY MOUTH IN THE MORNING AND IN THE EVENING [facility] FUROSEMIDE 80 mg tablet 3-0 -11 00:00: 00 Yes [id number] 80mg TAKE 1 TABLET BY MOUTH IN THE MORNING [facility] SPIRONOLACT ONE 25 mg tablet 3-0 -11 00:00: 00 Yes [id number] TAKE 1 TABLET BY MOUTH IN THE MORNING AND IN THE EVENING [facility] FUROSEMIDE 80 mg tablet 3-0 9-11 00:00: 00 Yes [id number] 80mg TAKE 1 TABLET BY MOUTH IN THE MORNING [facility] SPIRONOLACT ONE 25 mg tablet 2022-0 04-13 00:00: 00 Yes [id number] TAKE 1 TABLET BY MOUTH IN THE MORNING AND IN THE EVENING [facility] FUROSEMIDE 80 mg tablet 2022-0 04-13 00:00: 00 Yes [id number] 80mg TAKE 1 TABLET BY MOUTH IN THE MORNING [facility] SPIRONOLACT ONE 25 mg tablet 2022-0 04-13 00:00: 00 Yes [id number] TAKE 1 TABLET BY MOUTH IN THE MORNING AND IN THE EVENING [facility] FUROSEMIDE 80 mg tablet 2022-0 04-13 00:00: 00 Yes [id number] 80mg TAKE 1 TABLET BY MOUTH IN THE MORNING [facility] SPIRONOLACT ONE 25 mg tablet 2022-0 04-13 00:00: 00 Yes [id number] TAKE 1 TABLET BY MOUTH IN THE MORNING AND IN THE EVENING [facility] FUROSEMIDE 80 mg tablet 2022-0 04-13 00:00: 00 Yes [id number] 80mg TAKE 1 TABLET BY MOUTH IN THE MORNING [facility] SPIRONOLACT ONE 25 mg tablet 2022-0 04-13 00:00: 00 Yes [id number] TAKE 1 TABLET BY MOUTH IN THE MORNING AND IN THE EVENING [facility] FUROSEMIDE 80 mg tablet 2022-0 04-13 00:00: 00 Yes [id number] 80mg TAKE 1 TABLET BY MOUTH IN THE MORNING [facility] SPIRONOLACT ONE 25 mg tablet 2022-0 04-13 00:00: 00 Yes [id number] TAKE 1 TABLET BY MOUTH IN THE MORNING AND IN THE EVENING [facility] FUROSEMIDE 80 mg tablet 3-0 04-13 00:00: 00 Yes [id number] 80mg TAKE 1 TABLET BY MOUTH IN THE MORNING [facility] SPIRONOLACT ONE 25 mg tablet 2022-0 04-13 00:00: 00 Yes [id number] TAKE 1 TABLET BY MOUTH IN THE MORNING AND IN THE EVENING [facility] FUROSEMIDE 80 mg tablet 3-0 04-13 00:00: 00 Yes [id number] 80mg TAKE 1 TABLET BY MOUTH IN THE MORNING [facility] SPIRONOLACT ONE 25 mg tablet 3-0 -11 00:00: 00 Yes [id number] TAKE 1 TABLET BY MOUTH IN THE MORNING AND IN THE EVENING [facility] FUROSEMIDE 80 mg tablet 3-0 -11 00:00: 00 Yes [id number] 80mg TAKE 1 TABLET BY MOUTH IN THE MORNING [facility] SPIRONOLACT ONE 25 mg tablet 3-0 11 00:00: 00 Yes [id number] TAKE 1 TABLET BY MOUTH IN THE MORNING AND IN THE EVENING [facility] FUROSEMIDE 80 mg tablet 3-0 -11 00:00: 00 Yes [id number] 80mg TAKE 1 TABLET BY MOUTH IN THE MORNING [facility] SPIRONOLACT ONE 25 mg tablet 3-0 - 00:00: 00 Yes [id number] TAKE 1 TABLET BY MOUTH IN THE MORNING AND IN THE EVENING [facility] FUROSEMIDE 80 mg tablet 3-0 -11 00:00: 00 Yes [id number] 80mg TAKE 1 TABLET BY MOUTH IN THE MORNING [facility] SPIRONOLACT ONE 25 mg tablet 3-0 -11 00:00: 00 Yes [id number] TAKE 1 TABLET BY MOUTH IN THE MORNING AND IN THE EVENING [facility] FUROSEMIDE 80 mg tablet 3-0 -11 00:00: 00 Yes [id number] 80mg TAKE 1 TABLET BY MOUTH IN THE MORNING [facility] SPIRONOLACT ONE 25 mg tablet 3-0 11 00:00: 00 Yes [id number] TAKE 1 TABLET BY MOUTH IN THE MORNING AND IN THE EVENING [facility] FUROSEMIDE 80 mg tablet 3-0 -11 00:00: 00 Yes [id number] 80mg TAKE 1 TABLET BY MOUTH IN THE MORNING [facility] SPIRONOLACT ONE 25 mg tablet 3-0 -11 00:00: 00 Yes [id number] TAKE 1 TABLET BY MOUTH IN THE MORNING AND IN THE EVENING [facility] FUROSEMIDE 80 mg tablet 3-0 -11 00:00: 00 Yes [id number] 80mg TAKE 1 TABLET BY MOUTH IN THE MORNING [facility] SPIRONOLACT ONE 25 mg tablet 04-13 00:00: 00 Yes [id number] TAKE 1 TABLET BY MOUTH IN THE MORNING AND IN THE EVENING [facility] FUROSEMIDE 80 mg tablet 04-13 00:00: 00 Yes [id number] 80mg TAKE 1 TABLET BY MOUTH IN THE MORNING [facility] SPIRONOLACT ONE 25 mg tablet 04-13 00:00: 00 Yes [id number] TAKE 1 TABLET BY MOUTH IN THE MORNING AND IN THE EVENING [facility] FUROSEMIDE 80 mg tablet 04-13 00:00: 00 Yes [id number] 80mg TAKE 1 TABLET BY MOUTH IN THE MORNING [facility] SPIRONOLACT ONE 25 mg tablet 04-13 00:00: 00 Yes [id number] TAKE 1 TABLET BY MOUTH IN THE MORNING AND IN THE EVENING [facility] FUROSEMIDE 80 mg tablet 04-13 00:00: 00 Yes [id number] 80mg TAKE 1 TABLET BY MOUTH IN THE MORNING [facility] FUROSEMIDE 80 mg tablet 04-13 00:00: 00 Yes [id number] 80mg TAKE 1 TABLET BY MOUTH IN THE MORNING [facility] SPIRONOLACT ONE 25 mg tablet 04-13 00:00: 00 09-15 00:00 :00 No [id number] TAKE 1 TABLET BY MOUTH IN THE MORNING AND IN THE EVENING [facility] fluconazole (DIFLUCAN) 150 mg tablet 04-13 00:00: 00 04-14 04:59 :00 No [id number] 150mg Take 1 tablet by mouth once now for 1 dose. [facility] clonazePAM 1 mg tablet 04-08 00:00: 00 Yes [id number] 1mg Take 1 tablet by mouth 4 (four) times daily as needed for Other (panic). [facility] clonazePAM 1 mg tablet 04-08 00:00: 00 Yes [id number] 1mg Take 1 tablet by mouth 4 (four) times daily as needed for Other (panic). [facility] clonazePAM 1 mg tablet 2023-0 9-06 00:00: 00 Yes [id number] 1mg Take 1 tablet by mouth 4 (four) times daily as needed for Other (panic). [facility] clonazePAM 1 mg tablet 3-0 9- 00:00: 00 Yes [id number] 1mg Take 1 tablet by mouth 4 (four) times daily as needed for Other (panic). [facility] tablet 2023-0 9-06 00:00: 00 Yes [id number] 1mg Take 1 tablet by mouth 4 (four) times daily as needed for Other (panic). [facility] 2023-0 9- 00:00: 00 Yes [id number] 1mg Take 1 tablet by mouth 4 (four) times daily as needed for Other (panic). [facility] 1 mg tablet 2023-0 9- 00:00: 00 Yes [id number] 1mg Take 1 tablet by mouth 4 (four) times daily as needed for Other (panic). [facility] clon[facility] 1 mg tablet 3-0 - 00:00: 00 Yes [id number] 1mg Take 1 tablet by mouth 4 (four) times daily as needed for Other (panic). [facility] clonaze[facility]AM 1 mg tablet 3-0 9- 00:00: 00 Yes [id number] 1mg Take 1 tablet by mouth 4 (four) times daily as needed for Other (panic). [facility] clon[facility] 1 mg tablet 2023-0 9-06 00:00: 00 Yes [id number] 1mg Take 1 tablet by mouth 4 (four) times daily as needed for Other (panic). [facility] 1 mg tablet 2023-0 9-06 00:00: 00 Yes [id number] 1mg Take 1 tablet by mouth 4 (four) times daily as needed for Other (panic). [facility] clon[facility] 1 mg tablet 2023-0 9-06 00:00: 00 Yes [id number] 1mg Take 1 tablet by mouth 4 (four) times daily as needed for Other (panic). [facility] clon[facility] 1 mg tablet 2023-0 9- 00:00: 00 Yes [id number] 1mg Take 1 tablet by mouth 4 (four) times daily as needed for Other (panic). [facility] clonazePAM 1 mg tablet 3-0 - 00:00: 00 Yes [id number] 1mg Take 1 tablet by mouth 4 (four) times daily as needed for Other (panic). [facility] 1 mg tablet 3-0 - 00:00: 00 Yes [id number] 1mg Take 1 tablet by mouth 4 (four) times daily as needed for Other (panic). [facility] clon[facility] 1 mg tablet 3-0 - 00:00: 00 Yes [id number] 1mg Take 1 tablet by mouth 4 (four) times daily as needed for Other (panic). [facility] clonazePAM 1 mg tablet 3-0 - 00:00: 00 Yes [id number] 1mg Take 1 tablet by mouth 4 (four) times daily as needed for Other (panic). [facility] clon[facility] 1 mg tablet 3-0 - 00:00: 00 Yes [id number] 1mg Take 1 tablet by mouth 4 (four) times daily as needed for Other (panic). [facility] clonazePAM 1 mg tablet 3-0 - 00:00: 00 Yes [id number] 1mg Take 1 tablet by mouth 4 (four) times daily as needed for Other (panic). [facility] clonazePAM 1 mg tablet 3-0 - 00:00: 00 Yes [id number] 1mg Take 1 tablet by mouth 4 (four) times daily as needed for Other (panic). [facility] clon[facility] 1 mg tablet 3-0 - 00:00: 00 Yes [id number] 1mg Take 1 tablet by mouth 4 (four) times daily as needed for Other (panic). [facility] clon[facility] 1 mg tablet 3-0 -06 00:00: 00 Yes [id number] 1mg Take 1 tablet by mouth 4 (four) times daily as needed for Other (panic). [facility] 1 mg tablet 3-0 9-06 00:00: 00 Yes [id number] 1mg Take 1 tablet by mouth 4 (four) times daily as needed for Other (panic). [facility] clonazePAM 1 mg tablet 04-08 00:00: 00 06-08 00:00 :00 No [id number] 1mg Take 1 tablet by mouth 4 (four) times daily as needed for Other (panic). [facility] ALBUTEROL 90 mcg/actuati on inhaler 03-30 00:00: 00 Yes [id number] INHALE 2 PUFFS BY MOUTH EVERY 6 HOURS NEEDED FOR WHEEZING, SHORTNESS OF BREATH OR BRONCHOSPA SMS. [facility] ALBUTEROL 90 mcg/actuati on inhaler 03-30 00:00: 00 Yes [id number] INHALE 2 PUFFS BY MOUTH EVERY 6 HOURS NEEDED FOR WHEEZING, SHORTNESS OF BREATH OR BRONCHOSPA SMS. [facility] ALBUTEROL 90 mcg/actuati on inhaler 03-30 00:00: 00 Yes [id number] INHALE 2 PUFFS BY MOUTH EVERY 6 HOURS NEEDED FOR WHEEZING, SHORTNESS OF BREATH OR BRONCHOSPA SMS. [facility] ALBUTEROL 90 mcg/actuati on inhaler 03-30 00:00: 00 Yes [id number] INHALE 2 PUFFS BY MOUTH EVERY 6 HOURS NEEDED FOR WHEEZING, SHORTNESS OF BREATH OR BRONCHOSPA SMS. [facility] ALBUTEROL 90 mcg/actuati on inhaler 03-30 00:00: 00 Yes [id number] INHALE 2 PUFFS BY MOUTH EVERY 6 HOURS NEEDED FOR WHEEZING, SHORTNESS OF BREATH OR BRONCHOSPA SMS. [facility] ALBUTEROL 90 mcg/actuati on inhaler 03-30 00:00: 00 Yes [id number] INHALE 2 PUFFS BY MOUTH EVERY 6 HOURS NEEDED FOR WHEEZING, SHORTNESS OF BREATH OR BRONCHOSPA SMS. [facility] ALBUTEROL 90 mcg/actuati on inhaler 03-30 00:00: 00 Yes [id number] INHALE 2 PUFFS BY MOUTH EVERY 6 HOURS NEEDED FOR WHEEZING, SHORTNESS OF BREATH OR BRONCHOSPA SMS. [facility] ALBUTEROL 90 mcg/actuati on inhaler 03-30 00:00: 00 Yes [id number] INHALE 2 PUFFS BY MOUTH EVERY 6 HOURS NEEDED FOR WHEEZING, SHORTNESS OF BREATH OR BRONCHOSPA SMS. [facility] ALBUTEROL 90 mcg/actuati on inhaler 03-30 00:00: 00 Yes [id number] INHALE 2 PUFFS BY MOUTH EVERY 6 HOURS NEEDED FOR WHEEZING, SHORTNESS OF BREATH OR BRONCHOSPA SMS. [facility] ALBUTEROL 90 mcg/actuati on inhaler 03-30 00:00: 00 Yes [id number] INHALE 2 PUFFS BY MOUTH EVERY 6 HOURS NEEDED FOR WHEEZING, SHORTNESS OF BREATH OR BRONCHOSPA SMS. [facility] ALBUTEROL 90 mcg/actuati on inhaler 03-30 00:00: 00 Yes [id number] INHALE 2 PUFFS BY MOUTH EVERY 6 HOURS NEEDED FOR WHEEZING, SHORTNESS OF BREATH OR BRONCHOSPA SMS. [facility] ALBUTEROL 90 mcg/actuati on inhaler 03-30 00:00: 00 Yes [id number] INHALE 2 PUFFS BY MOUTH EVERY 6 HOURS NEEDED FOR WHEEZING, SHORTNESS OF BREATH OR BRONCHOSPA SMS. [facility] ALBUTEROL 90 mcg/actuati on inhaler 03-30 00:00: 00 Yes [id number] INHALE 2 PUFFS BY MOUTH EVERY 6 HOURS NEEDED FOR WHEEZING, SHORTNESS OF BREATH OR BRONCHOSPA SMS. [facility] ALBUTEROL 90 mcg/actuati on inhaler 03-30 00:00: 00 Yes [id number] INHALE 2 PUFFS BY MOUTH EVERY 6 HOURS NEEDED FOR WHEEZING, SHORTNESS OF BREATH OR BRONCHOSPA SMS. [facility] ALBUTEROL 90 mcg/actuati on inhaler 03-30 00:00: 00 Yes [id number] INHALE 2 PUFFS BY MOUTH EVERY 6 HOURS NEEDED FOR WHEEZING, SHORTNESS OF BREATH OR BRONCHOSPA SMS. [facility] ALBUTEROL 90 mcg/actuati on inhaler 03-30 00:00: 00 Yes [id number] INHALE 2 PUFFS BY MOUTH EVERY 6 HOURS NEEDED FOR WHEEZING, SHORTNESS OF BREATH OR BRONCHOSPA SMS. [facility] ALBUTEROL 90 mcg/actuati on inhaler 03-30 00:00: 00 Yes [id number] INHALE 2 PUFFS BY MOUTH EVERY 6 HOURS NEEDED FOR WHEEZING, SHORTNESS OF BREATH OR BRONCHOSPA SMS. [facility] ALBUTEROL 90 mcg/actuati on inhaler 03-30 00:00: 00 Yes [id number] INHALE 2 PUFFS BY MOUTH EVERY 6 HOURS NEEDED FOR WHEEZING, SHORTNESS OF BREATH OR BRONCHOSPA SMS. [facility] ALBUTEROL 90 mcg/actuati on inhaler 03-30 00:00: 00 Yes [id number] INHALE 2 PUFFS BY MOUTH EVERY 6 HOURS NEEDED FOR WHEEZING, SHORTNESS OF BREATH OR BRONCHOSPA SMS. [facility] ALBUTEROL 90 mcg/actuati on inhaler 03-30 00:00: 00 Yes [id number] INHALE 2 PUFFS BY MOUTH EVERY 6 HOURS NEEDED FOR WHEEZING, SHORTNESS OF BREATH OR BRONCHOSPA SMS. [facility] ALBUTEROL 90 mcg/actuati on inhaler 03-30 00:00: 00 Yes [id number] INHALE 2 PUFFS BY MOUTH EVERY 6 HOURS NEEDED FOR WHEEZING, SHORTNESS OF BREATH OR BRONCHOSPA SMS. [facility] ALBUTEROL 90 mcg/actuati on inhaler 03-30 00:00: 00 Yes [id number] INHALE 2 PUFFS BY MOUTH EVERY 6 HOURS NEEDED FOR WHEEZING, SHORTNESS OF BREATH OR BRONCHOSPA SMS. [facility] ALBUTEROL 90 mcg/actuati on inhaler 03-30 00:00: 00 Yes [id number] INHALE 2 PUFFS BY MOUTH EVERY 6 HOURS NEEDED FOR WHEEZING, SHORTNESS OF BREATH OR BRONCHOSPA SMS. [facility] ALBUTEROL 90 mcg/actuati on inhaler 03-30 00:00: 00 Yes [id number] INHALE 2 PUFFS BY MOUTH EVERY 6 HOURS NEEDED FOR WHEEZING, SHORTNESS OF BREATH OR BRONCHOSPA SMS. [facility] ALBUTEROL 90 mcg/actuati on inhaler 03-30 00:00: 00 Yes [id number] INHALE 2 PUFFS BY MOUTH EVERY 6 HOURS NEEDED FOR WHEEZING, SHORTNESS OF BREATH OR BRONCHOSPA SMS. [facility] ALBUTEROL 90 mcg/actuati on inhaler 03-30 00:00: 00 Yes [id number] INHALE 2 PUFFS BY MOUTH EVERY 6 HOURS NEEDED FOR WHEEZING, SHORTNESS OF BREATH OR BRONCHOSPA SMS. [facility] ALBUTEROL 90 mcg/actuati on inhaler 03-30 00:00: 00 Yes [id number] INHALE 2 PUFFS BY MOUTH EVERY 6 HOURS NEEDED FOR WHEEZING, SHORTNESS OF BREATH OR BRONCHOSPA SMS. [facility] ALBUTEROL 90 mcg/actuati on inhaler 03-30 00:00: 00 Yes [id number] INHALE 2 PUFFS BY MOUTH EVERY 6 HOURS NEEDED FOR WHEEZING, SHORTNESS OF BREATH OR BRONCHOSPA SMS. [facility] ALBUTEROL 90 mcg/actuati on inhaler 03-30 00:00: 00 Yes [id number] INHALE 2 PUFFS BY MOUTH EVERY 6 HOURS NEEDED FOR WHEEZING, SHORTNESS OF BREATH OR BRONCHOSPA SMS. [facility] ALBUTEROL 90 mcg/actuati on inhaler 03-30 00:00: 00 Yes [id number] INHALE 2 PUFFS BY MOUTH EVERY 6 HOURS NEEDED FOR WHEEZING, SHORTNESS OF BREATH OR BRONCHOSPA SMS. [facility] ALBUTEROL 90 mcg/actuati on inhaler 03-30 00:00: 00 06-29 00:00 :00 No [id number] INHALE 2 PUFFS BY MOUTH EVERY 6 HOURS NEEDED FOR WHEEZING, SHORTNESS OF BREATH OR BRONCHOSPA SMS. [facility] lisinopriL 40 mg tablet 03-26 00:00: 00 Yes [id number] 40mg Take 1 tablet by mouth in the morning. [facility] amLODIPine 10 mg tablet 03-26 00:00: 00 Yes [id number] 10mg Take 1 tablet by mouth in the morning. [facility] lisinopriL 40 mg tablet 3-0 824 00:00: 00 Yes [id number] 40mg Take 1 tablet by mouth in the morning. [facility] amLODIPine 10 mg tablet 2022-0 824 00:00: 00 Yes [id number] 10mg Take 1 tablet by mouth in the morning. [facility] lisinopriL 40 mg tablet 2022-0 824 00:00: 00 Yes [id number] 40mg Take 1 tablet by mouth in the morning. [facility] amLODIPine 10 mg tablet 2022-0 824 00:00: 00 Yes [id number] 10mg Take 1 tablet by mouth in the morning. [facility] lisinopriL 40 mg tablet 2022-0 824 00:00: 00 Yes [id number] 40mg Take 1 tablet by mouth in the morning. [facility] amLODIPine 10 mg tablet 2022-0 824 00:00: 00 Yes [id number] 10mg Take 1 tablet by mouth in the morning. [facility] lisinopriL 40 mg tablet 2022-0 824 00:00: 00 Yes [id number] 40mg Take 1 tablet by mouth in the morning. [facility] amLODIPine 10 mg tablet 2022-0 824 00:00: 00 Yes [id number] 10mg Take 1 tablet by mouth in the morning. [facility] lisinopriL 40 mg tablet 2022-0 824 00:00: 00 Yes [id number] 40mg Take 1 tablet by mouth in the morning. [facility] amLODIPine 10 mg tablet 2022-0 824 00:00: 00 Yes [id number] 10mg Take 1 tablet by mouth in the morning. [facility] lisinopriL 40 mg tablet 2022-0 8-24 00:00: 00 Yes [id number] 40mg Take 1 tablet by mouth in the morning. [facility] amLODIPine 10 mg tablet 3-0 8-24 00:00: 00 Yes [id number] 10mg Take 1 tablet by mouth in the morning. [facility] lisinopriL 40 mg tablet 2023-0 824 00:00: 00 Yes [id number] 40mg Take 1 tablet by mouth in the morning. [facility] amLODIPine 10 mg tablet 2022-0 824 00:00: 00 Yes [id number] 10mg Take 1 tablet by mouth in the morning. [facility] lisinopriL 40 mg tablet 2022-0 824 00:00: 00 Yes [id number] 40mg Take 1 tablet by mouth in the morning. [facility] amLODIPine 10 mg tablet 2022-0 824 00:00: 00 Yes [id number] 10mg Take 1 tablet by mouth in the morning. [facility] lisinopriL 40 mg tablet 2022-0 824 00:00: 00 Yes [id number] 40mg Take 1 tablet by mouth in the morning. [facility] amLODIPine 10 mg tablet 2022-0 824 00:00: 00 Yes [id number] 10mg Take 1 tablet by mouth in the morning. [facility] lisinopriL 40 mg tablet 2022-0 824 00:00: 00 Yes [id number] 40mg Take 1 tablet by mouth in the morning. [facility] amLODIPine 10 mg tablet 2022-0 824 00:00: 00 Yes [id number] 10mg Take 1 tablet by mouth in the morning. [facility] lisinopriL 40 mg tablet 2022-0 824 00:00: 00 Yes [id number] 40mg Take 1 tablet by mouth in the morning. [facility] amLODIPine 10 mg tablet 2022-0 824 00:00: 00 Yes [id number] 10mg Take 1 tablet by mouth in the morning. [facility] lisinopriL 40 mg tablet 3-0 824 00:00: 00 Yes [id number] 40mg Take 1 tablet by mouth in the morning. [facility] amLODIPine 10 mg tablet 2022-0 8-24 00:00: 00 Yes [id number] 10mg Take 1 tablet by mouth in the morning. [facility] lisinopriL 40 mg tablet 3-0 8-24 00:00: 00 Yes [id number] 40mg Take 1 tablet by mouth in the morning. [facility] amLODIPine 10 mg tablet 3-0 8-24 00:00: 00 Yes [id number] 10mg Take 1 tablet by mouth in the morning. [facility] lisinopriL 40 mg tablet 2022-0 8-24 00:00: 00 Yes [id number] 40mg Take 1 tablet by mouth in the morning. [facility] amLODIPine 10 mg tablet 2022-0 8-24 00:00: 00 Yes [id number] 10mg Take 1 tablet by mouth in the morning. [facility] lisinopriL 40 mg tablet 2022-0 8-24 00:00: 00 Yes [id number] 40mg Take 1 tablet by mouth in the morning. [facility] amLODIPine 10 mg tablet 2022-0 8-24 00:00: 00 Yes [id number] 10mg Take 1 tablet by mouth in the morning. [facility] lisinopriL 40 mg tablet 2022-0 8-24 00:00: 00 Yes [id number] 40mg Take 1 tablet by mouth in the morning. [facility] amLODIPine 10 mg tablet 2022-0 824 00:00: 00 Yes [id number] 10mg Take 1 tablet by mouth in the morning. [facility] lisinopriL 40 mg tablet 2022-0 824 00:00: 00 Yes [id number] 40mg Take 1 tablet by mouth in the morning. [facility] amLODIPine 10 mg tablet 3-0 8-24 00:00: 00 Yes [id number] 10mg Take 1 tablet by mouth in the morning. [facility] lisinopriL 40 mg tablet 3-0 824 00:00: 00 Yes [id number] 40mg Take 1 tablet by mouth in the morning. [facility] amLODIPine 10 mg tablet 3-0 8-24 00:00: 00 Yes [id number] 10mg Take 1 tablet by mouth in the morning. [facility] lisinopriL 40 mg tablet 3-0 8-24 00:00: 00 Yes [id number] 40mg Take 1 tablet by mouth in the morning. [facility] amLODIPine 10 mg tablet 2023-0 824 00:00: 00 Yes [id number] 10mg Take 1 tablet by mouth in the morning. [facility] lisinopriL 40 mg tablet 2022-0 824 00:00: 00 Yes [id number] 40mg Take 1 tablet by mouth in the morning. [facility] amLODIPine 10 mg tablet 2022-0 824 00:00: 00 Yes [id number] 10mg Take 1 tablet by mouth in the morning. [facility] lisinopriL 40 mg tablet 2022-0 824 00:00: 00 Yes [id number] 40mg Take 1 tablet by mouth in the morning. [facility] amLODIPine 10 mg tablet 2022-0 824 00:00: 00 Yes [id number] 10mg Take 1 tablet by mouth in the morning. [facility] lisinopriL 40 mg tablet 2022-0 824 00:00: 00 Yes [id number] 40mg Take 1 tablet by mouth in the morning. [facility] amLODIPine 10 mg tablet 2022-0 824 00:00: 00 Yes [id number] 10mg Take 1 tablet by mouth in the morning. [facility] lisinopriL 40 mg tablet 2022-0 824 00:00: 00 Yes [id number] 40mg Take 1 tablet by mouth in the morning. [facility] amLODIPine 10 mg tablet 2022-0 824 00:00: 00 Yes [id number] 10mg Take 1 tablet by mouth in the morning. [facility] lisinopriL 40 mg tablet 2022-0 824 00:00: 00 Yes [id number] 40mg Take 1 tablet by mouth in the morning. [facility] amLODIPine 10 mg tablet 2022-0 824 00:00: 00 Yes [id number] 10mg Take 1 tablet by mouth in the morning. [facility] lisinopriL 40 mg tablet 2022-0 824 00:00: 00 Yes [id number] 40mg Take 1 tablet by mouth in the morning. [facility] amLODIPine 10 mg tablet 3-0 8-24 00:00: 00 Yes [id number] 10mg Take 1 tablet by mouth in the morning. [facility] lisinopriL 40 mg tablet 3-0 824 00:00: 00 Yes [id number] 40mg Take 1 tablet by mouth in the morning. [facility] amLODIPine 10 mg tablet 2022-0 824 00:00: 00 Yes [id number] 10mg Take 1 tablet by mouth in the morning. [facility] lisinopriL 40 mg tablet 2022-0 824 00:00: 00 Yes [id number] 40mg Take 1 tablet by mouth in the morning. [facility] amLODIPine 10 mg tablet 2022-0 824 00:00: 00 Yes [id number] 10mg Take 1 tablet by mouth in the morning. [facility] lisinopriL 40 mg tablet 2022-0 824 00:00: 00 Yes [id number] 40mg Take 1 tablet by mouth in the morning. [facility] amLODIPine 10 mg tablet 2022-0 824 00:00: 00 Yes [id number] 10mg Take 1 tablet by mouth in the morning. [facility] lisinopriL 40 mg tablet 2022-0 824 00:00: 00 Yes [id number] 40mg Take 1 tablet by mouth in the morning. [facility] amLODIPine 10 mg tablet 2022-0 824 00:00: 00 Yes [id number] 10mg Take 1 tablet by mouth in the morning. [facility] lisinopriL 40 mg tablet 2022-0 824 00:00: 00 Yes [id number] 40mg Take 1 tablet by mouth in the morning. [facility] amLODIPine 10 mg tablet 2022-0 824 00:00: 00 Yes [id number] 10mg Take 1 tablet by mouth in the morning. [facility] lisinopriL 40 mg tablet 2022-0 8-24 00:00: 00 Yes [id number] 40mg Take 1 tablet by mouth in the morning. [facility] amLODIPine 10 mg tablet 3-0 8-24 00:00: 00 Yes [id number] 10mg Take 1 tablet by mouth in the morning. [facility] lisinopriL 40 mg tablet 2023-0 824 00:00: 00 Yes [id number] 40mg Take 1 tablet by mouth in the morning. [facility] amLODIPine 10 mg tablet 2022-0 824 00:00: 00 Yes [id number] 10mg Take 1 tablet by mouth in the morning. [facility] lisinopriL 40 mg tablet 2022-0 824 00:00: 00 Yes [id number] 40mg Take 1 tablet by mouth in the morning. [facility] amLODIPine 10 mg tablet 2022-0 824 00:00: 00 Yes [id number] 10mg Take 1 tablet by mouth in the morning. [facility] lisinopriL 40 mg tablet 2022-0 824 00:00: 00 Yes [id number] 40mg Take 1 tablet by mouth in the morning. [facility] amLODIPine 10 mg tablet 2022-0 824 00:00: 00 Yes [id number] 10mg Take 1 tablet by mouth in the morning. [facility] lisinopriL 40 mg tablet 2022-0 824 00:00: 00 Yes [id number] 40mg Take 1 tablet by mouth in the morning. [facility] amLODIPine 10 mg tablet 2022-0 824 00:00: 00 Yes [id number] 10mg Take 1 tablet by mouth in the morning. [facility] lisinopriL 40 mg tablet 2022-0 824 00:00: 00 Yes [id number] 40mg Take 1 tablet by mouth in the morning. [facility] amLODIPine 10 mg tablet 2022-0 824 00:00: 00 Yes [id number] 10mg Take 1 tablet by mouth in the morning. [facility] lisinopriL 40 mg tablet 3-0 824 00:00: 00 Yes [id number] 40mg Take 1 tablet by mouth in the morning. [facility] amLODIPine 10 mg tablet 2022-0 8-24 00:00: 00 Yes [id number] 10mg Take 1 tablet by mouth in the morning. [facility] lisinopriL 40 mg tablet 3-0 8-24 00:00: 00 Yes [id number] 40mg Take 1 tablet by mouth in the morning. [facility] amLODIPine 10 mg tablet 2022-0 824 00:00: 00 Yes [id number] 10mg Take 1 tablet by mouth in the morning. [facility] lisinopriL 40 mg tablet 2022-0 824 00:00: 00 Yes [id number] 40mg Take 1 tablet by mouth in the morning. [facility] amLODIPine 10 mg tablet 2022-0 824 00:00: 00 Yes [id number] 10mg Take 1 tablet by mouth in the morning. [facility] amLODIPine 10 mg tablet 2022-0 824 00:00: 00 Yes [id number] 10mg Take 1 tablet by mouth in the morning. [facility] amLODIPine 10 mg tablet 2022-0 824 00:00: 00 Yes [id number] 10mg Take 1 tablet by mouth in the morning. [facility] amLODIPine 10 mg tablet 2022-0 824 00:00: 00 Yes [id number] 10mg Take 1 tablet by mouth in the morning. [facility] amLODIPine 10 mg tablet 2022-0 824 00:00: 00 Yes [id number] 10mg Take 1 tablet by mouth in the morning. [facility] amLODIPine 10 mg tablet 2022-0 824 00:00: 00 Yes [id number] 10mg Take 1 tablet by mouth in the morning. [facility] amLODIPine 10 mg tablet 3-0 824 00:00: 00 Yes [id number] 10mg Take 1 tablet by mouth in the morning. [facility] amLODIPine 10 mg tablet 3-0 824 00:00: 00 Yes [id number] 10mg Take 1 tablet by mouth in the morning. [facility] amLODIPine 10 mg tablet 3-0 8-24 00:00: 00 Yes [id number] 10mg Take 1 tablet by mouth in the morning. [facility] amLODIPine 10 mg tablet 3-0 824 00:00: 00 Yes [id number] 10mg Take 1 tablet by mouth in the morning. [facility] amLODIPine 10 mg tablet 3-0 824 00:00: 00 Yes [id number] 10mg Take 1 tablet by mouth in the morning. [facility] amLODIPine 10 mg tablet 0 824 00:00: 00 Yes [id number] 10mg Take 1 tablet by mouth in the morning. [facility] amLODIPine 10 mg tablet 0 824 00:00: 00 Yes [id number] 10mg Take 1 tablet by mouth in the morning. [facility] amLODIPine 10 mg tablet 0 824 00:00: 00 Yes [id number] 10mg Take 1 tablet by mouth in the morning. [facility] amLODIPine 10 mg tablet 0 824 00:00: 00 Yes [id number] 10mg Take 1 tablet by mouth in the morning. [facility] amLODIPine 10 mg tablet 0 824 00:00: 00 Yes [id number] 10mg Take 1 tablet by mouth in the morning. [facility] amLODIPine 10 mg tablet 0 824 00:00: 00 Yes [id number] 10mg Take 1 tablet by mouth in the morning. [facility] amLODIPine 10 mg tablet 0 824 00:00: 00 Yes [id number] 10mg Take 1 tablet by mouth in the morning. [facility] amLODIPine 10 mg tablet 0 824 00:00: 00 09-11 00:00 :00 No [id number] 10mg Take 1 tablet by mouth in the morning. [facility] lisinopriL 40 mg tablet 0 824 00:00: 00 07-09 00:00 :00 No [id number] 40mg Take 1 tablet by mouth in the morning. [facility] lisinopriL 40 mg tablet 0 824 00:00: 00 07-09 00:00 :00 No [id number] 40mg Take 1 tablet by mouth in the morning. [facility] glipiZIDE XL 5 mg 24 hr tablet 2022-0 7-26 00:00: 00 Yes [id number] 5mg Take 1 tablet by mouth daily with breakfast. [facility] Insulin Waves, Disposable, (BD ULTRAFINE III MINI PEN) 31 gauge x 3/16" Ndle 3-0 7-26 00:00: 00 Yes [id number] USE DIRECTED FOUR TIMES DAILY. Dx E11.9 [facility] glipiZIDE XL 5 mg 24 hr tablet 2022-0 7-26 00:00: 00 Yes [id number] 5mg Take 1 tablet by mouth daily with breakfast. [facility] Insulin Waves, Disposable, (BD ULTRAFINE III MINI PEN) 31 gauge x 3/16" Ndle 3-0 7-26 00:00: 00 Yes [id number] USE DIRECTED FOUR TIMES DAILY. Dx E11.9 [facility] glipiZIDE XL 5 mg 24 hr tablet 2022-0 7-26 00:00: 00 Yes [id number] 5mg Take 1 tablet by mouth daily with breakfast. [facility] Insulin Waves, Disposable, (BD ULTRAFINE III MINI PEN) 31 gauge x 3/16" Ndle 3-0 7-26 00:00: 00 Yes [id number] USE DIRECTED FOUR TIMES DAILY. Dx E11.9 [facility] glipiZIDE XL 5 mg 24 hr tablet 2022-0 7-26 00:00: 00 Yes [id number] 5mg Take 1 tablet by mouth daily with breakfast. [facility] Insulin Waves, Disposable, (BD ULTRAFINE III MINI PEN) 31 gauge x 3/16" Ndle 3-0 7-26 00:00: 00 Yes [id number] USE DIRECTED FOUR TIMES DAILY. Dx E11.9 [facility] glipiZIDE XL 5 mg 24 hr tablet 3-0 7-26 00:00: 00 Yes [id number] 5mg Take 1 tablet by mouth daily with breakfast. [facility] Insulin Waves, Disposable, (BD ULTRAFINE III MINI PEN) 31 gauge x 3/16" Ndle 3-0 7-26 00:00: 00 Yes [id number] USE DIRECTED FOUR TIMES DAILY. Dx E11.9 [facility] glipiZIDE XL 5 mg 24 hr tablet 3-0 7-26 00:00: 00 Yes [id number] 5mg Take 1 tablet by mouth daily with breakfast. [facility] Insulin Waves, Disposable, (BD ULTRAFINE III MINI PEN) 31 gauge x 3/16" Ndle 3-0 7-26 00:00: 00 Yes [id number] USE DIRECTED FOUR TIMES DAILY. Dx E11.9 [facility] hr tablet 2022-0 7-26 00:00: 00 Yes [id number] 5mg Take 1 tablet by mouth daily with breakfast. [facility] Insulin Waves, Disposable, (BD ULTRAFINE III MINI PEN) 31 gauge x 3/16" Ndle 2022-0 7-26 00:00: 00 Yes [id number] USE DIRECTED FOUR TIMES DAILY. Dx E11.9 [facility] glipiZIDE XL 5 mg 24 hr tablet 2022-0 7- 00:00: 00 Yes [id number] 5mg Take 1 tablet by mouth daily with breakfast. [facility] Insulin Waves, Disposable, (BD ULTRAFINE III MINI PEN) 31 gauge x 3/16" Ndle 2022-0 -26 00:00: 00 Yes [id number] USE DIRECTED FOUR TIMES DAILY. Dx E11.9 [facility] glipiZIDE XL 5 mg 24 hr tablet 2022-0 7-26 00:00: 00 Yes [id number] 5mg Take 1 tablet by mouth daily with breakfast. [facility] Insulin Waves, Disposable, (BD ULTRAFINE III MINI PEN) 31 gauge x 3/16" Ndle 3-0 7-26 00:00: 00 Yes [id number] USE DIRECTED FOUR TIMES DAILY. Dx E11.9 [facility] glipiZIDE XL 5 mg 24 hr tablet 3-0 -26 00:00: 00 Yes [id number] 5mg Take 1 tablet by mouth daily with breakfast. [facility] Insulin Waves, Disposable, (BD ULTRAFINE III MINI PEN) 31 gauge x 3/16" Ndle 2022-0 7-26 00:00: 00 Yes [id number] USE DIRECTED FOUR TIMES DAILY. Dx E11.9 [facility] 5 mg 24 hr tablet 3-0 7-26 00:00: 00 Yes [id number] 5mg Take 1 tablet by mouth daily with breakfast. [facility] Insulin Waves, Disposable, (BD ULTRAFINE III MINI PEN) 31 gauge x 3/16" Ndle 3-0 7-26 00:00: 00 Yes [id number] USE DIRECTED FOUR TIMES DAILY. Dx E11.9 [facility] 5 mg 24 hr tablet 3-0 7-26 00:00: 00 Yes [id number] 5mg Take 1 tablet by mouth daily with breakfast. [facility] Insulin Waves, Disposable, (BD ULTRAFINE III MINI PEN) 31 gauge x 3/16" Ndle 3-0 7-26 00:00: 00 Yes [id number] USE DIRECTED FOUR TIMES DAILY. Dx E11.9 [facility] gl[facility] XL 5 mg 24 hr tablet 2022-0 7-26 00:00: 00 Yes [id number] 5mg Take 1 tablet by mouth daily with breakfast. [facility] Insulin Waves, Disposable, (BD ULTRAFINE III MINI PEN) 31 gauge x 3/16" Ndle 3-0 7-26 00:00: 00 Yes [id number] USE DIRECTED FOUR TIMES DAILY. Dx E11.9 [facility] 5 mg 24 hr tablet 2022-0 7-26 00:00: 00 Yes [id number] 5mg Take 1 tablet by mouth daily with breakfast. [facility] Insulin Waves, Disposable, (BD ULTRAFINE III MINI PEN) 31 gauge x 3/16" Ndle 3-0 7-26 00:00: 00 Yes [id number] USE DIRECTED FOUR TIMES DAILY. Dx E11.9 [facility] glipiZIDE XL 5 mg 24 hr tablet 3-0 7-26 00:00: 00 Yes [id number] 5mg Take 1 tablet by mouth daily with breakfast. [facility] Insulin Waves, Disposable, (BD ULTRAFINE III MINI PEN) 31 gauge x 3/16" Ndle 3-0 7-26 00:00: 00 Yes [id number] USE DIRECTED FOUR TIMES DAILY. Dx E11.9 [facility] gl[facility] XL 5 mg 24 hr tablet 3-0 7-26 00:00: 00 Yes [id number] 5mg Take 1 tablet by mouth daily with breakfast. [facility] Insulin Waves, Disposable, (BD ULTRAFINE III MINI PEN) 31 gauge x 3/16" Ndle 3-0 7-26 00:00: 00 Yes [id number] USE DIRECTED FOUR TIMES DAILY. Dx E11.9 [facility] glipiZIDE XL 5 mg 24 hr tablet 2022-0 7-26 00:00: 00 Yes [id number] 5mg Take 1 tablet by mouth daily with breakfast. [facility] Insulin Waves, Disposable, (BD ULTRAFINE III MINI PEN) 31 gauge x 3/16" Ndle 3-0 7-26 00:00: 00 Yes [id number] USE DIRECTED FOUR TIMES DAILY. Dx E11.9 [facility] glipiZIDE XL 5 mg 24 hr tablet 2022-0 - 00:00: 00 Yes [id number] 5mg Take 1 tablet by mouth daily with breakfast. [facility] Insulin Waves, Disposable, (BD ULTRAFINE III MINI PEN) 31 gauge x 3/16" Ndle 3-0 7-26 00:00: 00 Yes [id number] USE DIRECTED FOUR TIMES DAILY. Dx E11.9 [facility] glipiZIDE XL 5 mg 24 hr tablet 2022-0 7 00:00: 00 Yes [id number] 5mg Take 1 tablet by mouth daily with breakfast. [facility] Insulin Waves, Disposable, (BD ULTRAFINE III MINI PEN) 31 gauge x 3/16" Ndle 2022-0 7-26 00:00: 00 Yes [id number] USE DIRECTED FOUR TIMES DAILY. Dx E11.9 [facility] glipiZIDE XL 5 mg 24 hr tablet 3-0 7-26 00:00: 00 Yes [id number] 5mg Take 1 tablet by mouth daily with breakfast. [facility] Insulin Waves, Disposable, (BD ULTRAFINE III MINI PEN) 31 gauge x 3/16" Ndle 3-0 7-26 00:00: 00 Yes [id number] USE DIRECTED FOUR TIMES DAILY. Dx E11.9 [facility] glipiZIDE XL 5 mg 24 hr tablet 3-0 7-26 00:00: 00 Yes [id number] 5mg Take 1 tablet by mouth daily with breakfast. [facility] Insulin Waves, Disposable, (BD ULTRAFINE III MINI PEN) 31 gauge x 3/16" Ndle 2022-0 7-26 00:00: 00 Yes [id number] USE DIRECTED FOUR TIMES DAILY. Dx E11.9 [facility] 5 mg 24 hr tablet 2022-0 -26 00:00: 00 Yes [id number] 5mg Take 1 tablet by mouth daily with breakfast. [facility] Insulin Waves, Disposable, (BD ULTRAFINE III MINI PEN) 31 gauge x 3/16" Ndle 2022-0 -26 00:00: 00 Yes [id number] USE DIRECTED FOUR TIMES DAILY. Dx E11.9 [facility] glipiZIDE XL 5 mg 24 hr tablet 2022-0 - 00:00: 00 Yes [id number] 5mg Take 1 tablet by mouth daily with breakfast. [facility] Insulin Waves, Disposable, (BD ULTRAFINE III MINI PEN) 31 gauge x 3/16" Ndle 2022-0 -26 00:00: 00 Yes [id number] USE DIRECTED FOUR TIMES DAILY. Dx E11.9 [facility] glipiZIDE XL 5 mg 24 hr tablet 2022-0 - 00:00: 00 Yes [id number] 5mg Take 1 tablet by mouth daily with breakfast. [facility] Insulin Waves, Disposable, (BD ULTRAFINE III MINI PEN) 31 gauge x 3/16" Ndle 0 7-26 00:00: 00 Yes [id number] USE DIRECTED FOUR TIMES DAILY. Dx E11.9 [facility] glipiZIDE XL 5 mg 24 hr tablet 2022-0 7-26 00:00: 00 Yes [id number] 5mg Take 1 tablet by mouth daily with breakfast. [facility] Insulin Waves, Disposable, (BD ULTRAFINE III MINI PEN) 31 gauge x 3/16" Ndle 3-0 7-26 00:00: 00 Yes [id number] USE DIRECTED FOUR TIMES DAILY. Dx E11.9 [facility] glipiZIDE XL 5 mg 24 hr tablet 3-0 7-26 00:00: 00 Yes [id number] 5mg Take 1 tablet by mouth daily with breakfast. [facility], Disposable, (BD ULTRAFINE III MINI PEN) 31 gauge x 3/16" Ndle 3-0 7-26 00:00: 00 Yes [id number] USE DIRECTED FOUR TIMES DAILY. Dx E11.9 [facility] glipiZIDE XL 5 mg 24 hr tablet 3-0 7-26 00:00: 00 Yes [id number] 5mg Take 1 tablet by mouth daily with breakfast. [facility] Insulin Waves, Disposable, (BD ULTRAFINE III MINI PEN) 31 gauge x 3/16" Ndle 3-0 7-26 00:00: 00 Yes [id number] USE DIRECTED FOUR TIMES DAILY. Dx E11.9 [facility] mg 24 hr tablet 3-0 7-26 00:00: 00 Yes [id number] 5mg Take 1 tablet by mouth daily with breakfast. [facility] Insulin Waves, Disposable, (BD ULTRAFINE III MINI PEN) 31 gauge x 3/16" Ndle 3-0 7-26 00:00: 00 Yes [id number] USE DIRECTED FOUR TIMES DAILY. Dx E11.9 [facility] Ins[facility] Waves, Disposable, (BD ULTRAFINE III MINI PEN) 31 gauge x 3/16" Ndle 2023-0 7-26 00:00: 00 Yes [id number] USE DIRECTED FOUR TIMES DAILY. Dx E11.9 [facility] Ins[facility] Waves, Disposable, (BD ULTRAFINE III MINI PEN) 31 gauge x 3/16" Ndle 2023-0 7-26 00:00: 00 Yes [id number] USE DIRECTED FOUR TIMES DAILY. Dx E11.9 [facility] Ins[facility] Waves, Disposable, (BD ULTRAFINE III MINI PEN) 31 gauge x 3/16" Ndle 2023-0 7-26 00:00: 00 Yes [id number] USE DIRECTED FOUR TIMES DAILY. Dx E11.9 [facility] Ins[facility] Waves, Disposable, (BD ULTRAFINE III MINI PEN) 31 gauge x 3/16" Ndle 2023-0 7-26 00:00: 00 Yes [id number] USE DIRECTED FOUR TIMES DAILY. Dx E11.9 [facility] Insulin Waves, Disposable, (BD ULTRAFINE III MINI PEN) 31 gauge x 3/16" Ndle 2023-0 7-26 00:00: 00 Yes [id number] USE DIRECTED FOUR TIMES DAILY. Dx E11.9 [facility] Insulin Waves, Disposable, (BD ULTRAFINE III MINI PEN) 31 gauge x 3/16" Ndle 2023-0 7-26 00:00: 00 Yes [id number] USE DIRECTED FOUR TIMES DAILY. Dx E11.9 [facility] Insulin Waves, Disposable, (BD ULTRAFINE III MINI PEN) 31 gauge x 3/16" Ndle 2023-0 7-26 00:00: 00 Yes [id number] USE DIRECTED FOUR TIMES DAILY. Dx E11.9 [facility] Insulin Waves, Disposable, (BD ULTRAFINE III MINI PEN) 31 gauge x 3/16" Ndle 2023-0 7-26 00:00: 00 Yes [id number] USE DIRECTED FOUR TIMES DAILY. Dx E11.9 [facility] Insulin Waves, Disposable, (BD ULTRAFINE III MINI PEN) 31 gauge x 3/16" Ndle 2023-0 7-26 00:00: 00 Yes [id number] USE DIRECTED FOUR TIMES DAILY. Dx E11.9 [facility] Insulin Waves, Disposable, (BD ULTRAFINE III MINI PEN) 31 gauge x 3/16" Ndle 2023-0 7-26 00:00: 00 Yes [id number] USE DIRECTED FOUR TIMES DAILY. Dx E11.9 [facility] Insulin Waves, Disposable, (BD ULTRAFINE III MINI PEN) 31 gauge x 3/16" Ndle 2023-0 7-26 00:00: 00 Yes [id number] USE DIRECTED FOUR TIMES DAILY. Dx E11.9 [facility] Insulin Waves, Disposable, (BD ULTRAFINE III MINI PEN) 31 gauge x 3/16" Ndle 2023-0 7-26 00:00: 00 Yes [id number] USE DIRECTED FOUR TIMES DAILY. Dx E11.9 [facility] Insulin Waves, Disposable, (BD ULTRAFINE III MINI PEN) 31 gauge x 3/16" Ndle 3-0 7-26 00:00: 00 Yes [id number] USE DIRECTED FOUR TIMES DAILY. Dx E11.9 [facility] Insulin Waves, Disposable, (BD ULTRAFINE III MINI PEN) 31 gauge x 3/16" Ndle 3-0 7-26 00:00: 00 Yes [id number] USE DIRECTED FOUR TIMES DAILY. Dx E11.9 [facility] Insulin Waves, Disposable, (BD ULTRAFINE III MINI PEN) 31 gauge x 3/16" Ndle 3-0 7-26 00:00: 00 Yes [id number] USE DIRECTED FOUR TIMES DAILY. Dx E11.9 [facility] Ins[facility] Waves, Disposable, (BD ULTRAFINE III MINI PEN) 31 gauge x 3/16" Ndle 3-0 7-26 00:00: 00 Yes [id number] USE DIRECTED FOUR TIMES DAILY. Dx E11.9 [facility] Insulin Waves, Disposable, (BD ULTRAFINE III MINI PEN) 31 gauge x 3/16" Ndle 3-0 7-26 00:00: 00 Yes [id number] USE DIRECTED FOUR TIMES DAILY. Dx E11.9 [facility] Insulin Waves, Disposable, (BD ULTRAFINE III MINI PEN) 31 gauge x 3/16" Ndle 3-0 7-26 00:00: 00 Yes [id number] USE DIRECTED FOUR TIMES DAILY. Dx E11.9 [facility] Insulin Waves, Disposable, (BD ULTRAFINE III MINI PEN) 31 gauge x 3/16" Ndle 2022-0 7-26 00:00: 00 07-10 00:00 :00 No [id number] USE DIRECTED FOUR TIMES DAILY. Dx E11.9 [facility] Insulin Waves, Disposable, (BD ULTRAFINE III MINI PEN) 31 gauge x 3/16" Ndle 2022-0 7-26 00:00: 00 07-10 00:00 :00 No [id number] USE DIRECTED FOUR TIMES DAILY. Dx E11.9 [facility] glipiZIDE XL 5 mg 24 hr tablet 0 02-25 00:00: 00 2023- 10-12 00:00 :00 No [id number] 5mg Take 1 tablet by mouth daily with breakfast. [facility] TIZ[facility] mg tablet 2022-0 24 00:00: 00 Yes [id number] TAKE 1 TABLET BY MOUTH EVERY 8 HOURS NEEDED [facility] TIZANIDINE [facility] mg tablet 2022-0 24 00:00: 00 Yes [id number] TAKE 1 TABLET BY MOUTH EVERY 8 HOURS NEEDED [facility] TIZANIDINE 4 mg tablet 2022-0 24 00:00: 00 Yes [id number] TAKE 1 TABLET BY MOUTH EVERY 8 HOURS NEEDED [facility] TIZANIDINE 4 mg tablet 2022-0 24 00:00: 00 Yes [id number] TAKE 1 TABLET BY MOUTH EVERY 8 HOURS NEEDED [facility] TIZANIDINE 4 mg tablet 2022-0 24 00:00: 00 Yes [id number] TAKE 1 TABLET BY MOUTH EVERY 8 HOURS NEEDED [facility] TIZANIDINE 4 mg tablet 2022-0 24 00:00: 00 Yes [id number] TAKE 1 TABLET BY MOUTH EVERY 8 HOURS NEEDED [facility] TIZANIDINE 4 mg tablet 2022-0 24 00:00: 00 Yes [id number] TAKE 1 TABLET BY MOUTH EVERY 8 HOURS NEEDED [facility] TIZANIDINE 4 mg tablet 2022-0 24 00:00: 00 Yes [id number] TAKE 1 TABLET BY MOUTH EVERY 8 HOURS NEEDED [facility] TIZANIDINE 4 mg tablet 2022-0 24 00:00: 00 Yes [id number] TAKE 1 TABLET BY MOUTH EVERY 8 HOURS NEEDED [facility] TIZANIDINE 4 mg tablet 2022-0 24 00:00: 00 Yes [id number] TAKE 1 TABLET BY MOUTH EVERY 8 HOURS NEEDED [facility] TIZANIDINE 4 mg tablet 3-0 -24 00:00: 00 Yes [id number] TAKE 1 TABLET BY MOUTH EVERY 8 HOURS NEEDED [facility] TIZANIDINE 4 mg tablet 3-0 7-24 00:00: 00 Yes [id number] TAKE 1 TABLET BY MOUTH EVERY 8 HOURS NEEDED [facility] TIZANIDINE 4 mg tablet 3-0 724 00:00: 00 Yes [id number] TAKE 1 TABLET BY MOUTH EVERY 8 HOURS NEEDED [facility] TIZANIDINE 4 mg tablet 3-0 24 00:00: 00 Yes [id number] TAKE 1 TABLET BY MOUTH EVERY 8 HOURS NEEDED [facility] TIZANIDINE 4 mg tablet 3-0 7-24 00:00: 00 Yes [id number] TAKE 1 TABLET BY MOUTH EVERY 8 HOURS NEEDED [facility] TIZANIDINE 4 mg tablet 3-0 24 00:00: 00 Yes [id number] TAKE 1 TABLET BY MOUTH EVERY 8 HOURS NEEDED [facility] TIZANIDINE 4 mg tablet 3-0 24 00:00: 00 Yes [id number] TAKE 1 TABLET BY MOUTH EVERY 8 HOURS NEEDED [facility] TIZANIDINE 4 mg tablet 3-0 24 00:00: 00 Yes [id number] TAKE 1 TABLET BY MOUTH EVERY 8 HOURS NEEDED [facility] TIZ[facility] mg tablet 2022-0 24 00:00: 00 Yes [id number] TAKE 1 TABLET BY MOUTH EVERY 8 HOURS NEEDED [facility] TIZANIDINE 4 mg tablet 2022-0 24 00:00: 00 Yes [id number] TAKE 1 TABLET BY MOUTH EVERY 8 HOURS NEEDED [facility] TIZANIDINE 4 mg tablet 3-0 24 00:00: 00 Yes [id number] TAKE 1 TABLET BY MOUTH EVERY 8 HOURS NEEDED [facility] TIZANIDINE 4 mg tablet 3-0 24 00:00: 00 Yes [id number] TAKE 1 TABLET BY MOUTH EVERY 8 HOURS NEEDED [facility] TIZANIDINE 4 mg tablet 3-0 7-24 00:00: 00 Yes [id number] TAKE 1 TABLET BY MOUTH EVERY 8 HOURS NEEDED [facility] TIZANIDINE 4 mg tablet 3-0 7-24 00:00: 00 Yes [id number] TAKE 1 TABLET BY MOUTH EVERY 8 HOURS NEEDED [facility] TIZANIDINE 4 mg tablet 3-0 7-24 00:00: 00 Yes [id number] TAKE 1 TABLET BY MOUTH EVERY 8 HOURS NEEDED [facility] TIZANIDINE 4 mg tablet 0 02-23 00:00: 00 Yes [id number] TAKE 1 TABLET BY MOUTH EVERY 8 HOURS NEEDED [facility] TIZANIDINE 4 mg tablet 0 02-23 00:00: 00 Yes [id number] TAKE 1 TABLET BY MOUTH EVERY 8 HOURS NEEDED [facility] TIZANIDINE 4 mg tablet 0 02-23 00:00: 00 Yes [id number] TAKE 1 TABLET BY MOUTH EVERY 8 HOURS NEEDED [facility] TIZANIDINE 4 mg tablet 0 02-23 00:00: 00 05-13 00:00 :00 No [id number] TAKE 1 TABLET BY MOUTH EVERY 8 HOURS NEEDED [facility] METFORMIN 850 mg tablet 0 02-20 00:00: 00 Yes [id number] TAKE 1 TABLET BY MOUTH THREE TIMES DAILY [facility] METFORMIN 850 mg tablet 0 02-20 00:00: 00 Yes [id number] TAKE 1 TABLET BY MOUTH THREE TIMES DAILY [facility] METFORMIN 850 mg tablet 0 02-20 00:00: 00 Yes [id number] TAKE 1 TABLET BY MOUTH THREE TIMES DAILY [facility] METFORMIN 850 mg tablet 0 02-20 00:00: 00 Yes [id number] TAKE 1 TABLET BY MOUTH THREE TIMES DAILY [facility] METFORMIN 850 mg tablet 2022-0 02-20 00:00: 00 Yes [id number] TAKE 1 TABLET BY MOUTH THREE TIMES DAILY [facility] METFORMIN 850 mg tablet 0 02-20 00:00: 00 Yes [id number] TAKE 1 TABLET BY MOUTH THREE TIMES DAILY [facility] METFORMIN 850 mg tablet 0 02-20 00:00: 00 Yes [id number] TAKE 1 TABLET BY MOUTH THREE TIMES DAILY [facility] METFORMIN 850 mg tablet 2022-0 02-20 00:00: 00 Yes [id number] TAKE 1 TABLET BY MOUTH THREE TIMES DAILY [facility] METFORMIN 850 mg tablet 0 02-20 00:00: 00 Yes [id number] TAKE 1 TABLET BY MOUTH THREE TIMES DAILY [facility] METFORMIN 850 mg tablet 0 02-20 00:00: 00 Yes [id number] TAKE 1 TABLET BY MOUTH THREE TIMES DAILY [facility] METFORMIN 850 mg tablet 0 02-20 00:00: 00 Yes [id number] TAKE 1 TABLET BY MOUTH THREE TIMES DAILY [facility] METFORMIN 850 mg tablet 0 02-20 00:00: 00 Yes [id number] TAKE 1 TABLET BY MOUTH THREE TIMES DAILY [facility] METFORMIN 850 mg tablet 0 02-20 00:00: 00 Yes [id number] TAKE 1 TABLET BY MOUTH THREE TIMES DAILY [facility] METFORMIN 850 mg tablet 0 02-20 00:00: 00 Yes [id number] TAKE 1 TABLET BY MOUTH THREE TIMES DAILY [facility] METFORMIN 850 mg tablet 0 02-20 00:00: 00 Yes [id number] TAKE 1 TABLET BY MOUTH THREE TIMES DAILY [facility] METFORMIN 850 mg tablet 0 02-20 00:00: 00 Yes [id number] TAKE 1 TABLET BY MOUTH THREE TIMES DAILY [facility] METFORMIN 850 mg tablet 0 02-20 00:00: 00 Yes [id number] TAKE 1 TABLET BY MOUTH THREE TIMES DAILY [facility] METFORMIN 850 mg tablet 0 02-20 00:00: 00 Yes [id number] TAKE 1 TABLET BY MOUTH THREE TIMES DAILY [facility] METFORMIN 850 mg tablet 0 02-20 00:00: 00 Yes [id number] TAKE 1 TABLET BY MOUTH THREE TIMES DAILY [facility] METFORMIN 850 mg tablet 0 02-20 00:00: 00 Yes [id number] TAKE 1 TABLET BY MOUTH THREE TIMES DAILY [facility] METFORMIN 850 mg tablet 0 02-20 00:00: 00 Yes [id number] TAKE 1 TABLET BY MOUTH THREE TIMES DAILY [facility] METFORMIN 850 mg tablet 0 02-20 00:00: 00 Yes [id number] TAKE 1 TABLET BY MOUTH THREE TIMES DAILY [facility] METFORMIN 850 mg tablet 0 02-20 00:00: 00 Yes [id number] TAKE 1 TABLET BY MOUTH THREE TIMES DAILY [facility] METFORMIN 850 mg tablet 0 02-20 00:00: 00 Yes [id number] TAKE 1 TABLET BY MOUTH THREE TIMES DAILY [facility] METFORMIN 850 mg tablet 0 02-20 00:00: 00 Yes [id number] TAKE 1 TABLET BY MOUTH THREE TIMES DAILY [facility] METFORMIN 850 mg tablet 0 02-20 00:00: 00 Yes [id number] TAKE 1 TABLET BY MOUTH THREE TIMES DAILY [facility] METFORMIN 850 mg tablet 0 02-20 00:00: 00 Yes [id number] TAKE 1 TABLET BY MOUTH THREE TIMES DAILY [facility] METFORMIN 850 mg tablet 0 02-20 00:00: 00 Yes [id number] TAKE 1 TABLET BY MOUTH THREE TIMES DAILY [facility] METFORMIN 850 mg tablet 0 02-20 00:00: 00 Yes [id number] TAKE 1 TABLET BY MOUTH THREE TIMES DAILY [facility] METFORMIN 850 mg tablet 0 02-20 00:00: 00 Yes [id number] TAKE 1 TABLET BY MOUTH THREE TIMES DAILY [facility] METFORMIN 850 mg tablet 02-20 00:00: 00 05-14 00:00 :00 No [id number] TAKE 1 TABLET BY MOUTH THREE TIMES DAILY [facility] ALBUTEROL 90 mcg/actuati on inhaler 0 02-13 00:00: 00 Yes [id number] INHALE 2 PUFFS BY MOUTH EVERY 6 HOURS NEEDED FOR WHEEZING, SHORTNESS OF BREATH OR BRONCHOSPA SMS. [facility] ALBUTEROL 90 mcg/actuati on inhaler 0 14 00:00: 00 Yes [id number] INHALE 2 PUFFS BY MOUTH EVERY 6 HOURS NEEDED FOR WHEEZING, SHORTNESS OF BREATH OR BRONCHOSPA SMS. [facility] ALBUTEROL 90 mcg/actuati on inhaler 0 02-13 00:00: 00 Yes [id number] INHALE 2 PUFFS BY MOUTH EVERY 6 HOURS NEEDED FOR WHEEZING, SHORTNESS OF BREATH OR BRONCHOSPA SMS. [facility] ALBUTEROL 90 mcg/actuati on inhaler 02-13 00:00: 00 Yes [id number] INHALE 2 PUFFS BY MOUTH EVERY 6 HOURS NEEDED FOR WHEEZING, SHORTNESS OF BREATH OR BRONCHOSPA SMS. [facility] ALBUTEROL 90 mcg/actuati on inhaler 02-13 00:00: 00 Yes [id number] INHALE 2 PUFFS BY MOUTH EVERY 6 HOURS NEEDED FOR WHEEZING, SHORTNESS OF BREATH OR BRONCHOSPA SMS. [facility] ALBUTEROL 90 mcg/actuati on inhaler 02-13 00:00: 00 Yes [id number] INHALE 2 PUFFS BY MOUTH EVERY 6 HOURS NEEDED FOR WHEEZING, SHORTNESS OF BREATH OR BRONCHOSPA SMS. [facility] ALBUTEROL 90 mcg/actuati on inhaler 02-13 00:00: 00 Yes [id number] INHALE 2 PUFFS BY MOUTH EVERY 6 HOURS NEEDED FOR WHEEZING, SHORTNESS OF BREATH OR BRONCHOSPA SMS. [facility] ALBUTEROL 90 mcg/actuati on inhaler 02-13 00:00: 00 Yes [id number] INHALE 2 PUFFS BY MOUTH EVERY 6 HOURS NEEDED FOR WHEEZING, SHORTNESS OF BREATH OR BRONCHOSPA SMS. [facility] ALBUTEROL 90 mcg/actuati on inhaler 02-13 00:00: 00 Yes [id number] INHALE 2 PUFFS BY MOUTH EVERY 6 HOURS NEEDED FOR WHEEZING, SHORTNESS OF BREATH OR BRONCHOSPA SMS. [facility] ALBUTEROL 90 mcg/actuati on inhaler 02-13 00:00: 00 Yes [id number] INHALE 2 PUFFS BY MOUTH EVERY 6 HOURS NEEDED FOR WHEEZING, SHORTNESS OF BREATH OR BRONCHOSPA SMS. [facility] ALBUTEROL 90 mcg/actuati on inhaler 02-13 00:00: 00 Yes [id number] INHALE 2 PUFFS BY MOUTH EVERY 6 HOURS NEEDED FOR WHEEZING, SHORTNESS OF BREATH OR BRONCHOSPA SMS. [facility] ALBUTEROL 90 mcg/actuati on inhaler 02-13 00:00: 00 03-30 00:00 :00 No [id number] INHALE 2 PUFFS BY MOUTH EVERY 6 HOURS NEEDED FOR WHEEZING, SHORTNESS OF BREATH OR BRONCHOSPA SMS. [facility] clonazePAM 1 mg tablet 0 02-11 00:00: 00 Yes [id number] 1mg Take 1 tablet by mouth in the morning and 1 tablet at noon and 1 tablet in the evening. [facility] clonazePAM 1 mg tablet 0 02-11 00:00: 00 Yes [id number] 1mg Take 1 tablet by mouth in the morning and 1 tablet at noon and 1 tablet in the evening. [facility] clonazePAM 1 mg tablet 2022-0 02-11 00:00: 00 Yes [id number] 1mg Take 1 tablet by mouth in the morning and 1 tablet at noon and 1 tablet in the evening. [facility] clonazePAM 1 mg tablet 0 02-11 00:00: 00 Yes [id number] 1mg Take 1 tablet by mouth in the morning and 1 tablet at noon and 1 tablet in the evening. [facility] clonazePAM 1 mg tablet 2022-0 02-11 00:00: 00 Yes [id number] 1mg Take 1 tablet by mouth in the morning and 1 tablet at noon and 1 tablet in the evening. [facility] clonazePAM 1 mg tablet 2022-0 02-11 00:00: 00 Yes [id number] 1mg Take 1 tablet by mouth in the morning and 1 tablet at noon and 1 tablet in the evening. [facility] clonazePAM 1 mg tablet 2022-0 02-11 00:00: 00 Yes [id number] 1mg Take 1 tablet by mouth in the morning and 1 tablet at noon and 1 tablet in the evening. [facility] clonazePAM 1 mg tablet 3-0 12 00:00: 00 Yes [id number] 1mg Take 1 tablet by mouth in the morning and 1 tablet at noon and 1 tablet in the evening. [facility] clonazePAM 1 mg tablet 2022-0 -12 00:00: 00 Yes [id number] 1mg Take 1 tablet by mouth in the morning and 1 tablet at noon and 1 tablet in the evening. [facility] clonazePAM 1 mg tablet 2022-0 12 00:00: 00 Yes [id number] 1mg Take 1 tablet by mouth in the morning and 1 tablet at noon and 1 tablet in the evening. [facility] clonazePAM 1 mg tablet 0 12 00:00: 00 Yes [id number] 1mg Take 1 tablet by mouth in the morning and 1 tablet at noon and 1 tablet in the evening. [facility] clonazePAM 1 mg tablet 0 12 00:00: 00 Yes [id number] 1mg Take 1 tablet by mouth in the morning and 1 tablet at noon and 1 tablet in the evening. [facility] clonazePAM 1 mg tablet 02-11 00:00: 00 Yes [id number] 1mg Take 1 tablet by mouth in the morning and 1 tablet at noon and 1 tablet in the evening. [facility] clonazePAM 1 mg tablet 02-11 00:00: 00 Yes [id number] 1mg Take 1 tablet by mouth in the morning and 1 tablet at noon and 1 tablet in the evening. [facility] clonazePAM 1 mg tablet 02-11 00:00: 00 Yes [id number] 1mg Take 1 tablet by mouth in the morning and 1 tablet at noon and 1 tablet in the evening. [facility] clonazePAM 1 mg tablet 02-11 00:00: 00 04-08 00:00 :00 No [id number] 1mg Take 1 tablet by mouth in the morning and 1 tablet at noon and 1 tablet in the evening. [facility] clonazePAM 1 mg tablet 12 00:00: 00 04-08 00:00 :00 No [id number] 1mg Take 1 tablet by mouth in the morning and 1 tablet at noon and 1 tablet in the evening. [facility] clonazePAM 1 mg tablet 12 00:00: 00 04-08 00:00 :00 No [id number] 1mg Take 1 tablet by mouth in the morning and 1 tablet at noon and 1 tablet in the evening. [facility] nystatin 100,000 unit/gram powder 0 627 00:00: 00 Yes [id number] Apply to area(s) 2 (two) times daily. [facility] nystatin 100,000 unit/gram powder 3-0 6-27 00:00: 00 Yes [id number] Apply to area(s) 2 (two) times daily. [facility] nystatin 100,000 unit/gram powder 2023-0 6-27 00:00: 00 Yes [id number] Apply to area(s) 2 (two) times daily. [facility] nystatin 100,000 unit/gram powder 2023-0 6-27 00:00: 00 Yes [id number] Apply to area(s) 2 (two) times daily. [facility] nystatin 100,000 unit/gram powder 3-0 6-27 00:00: 00 Yes [id number] Apply to area(s) 2 (two) times daily. [facility] nystatin 100,000 unit/gram powder 3-0 6-27 00:00: 00 Yes [id number] Apply to area(s) 2 (two) times daily. [facility] nystatin 100,000 unit/gram powder 3-0 6-27 00:00: 00 Yes [id number] Apply to area(s) 2 (two) times daily. [facility] nystatin 100,000 unit/gram powder 3-0 6-27 00:00: 00 Yes [id number] Apply to area(s) 2 (two) times daily. [facility] nystatin 100,000 unit/gram powder 2023-0 6-27 00:00: 00 Yes [id number] Apply to area(s) 2 (two) times daily. [facility] nystatin 100,000 unit/gram powder 2023-0 6-27 00:00: 00 Yes [id number] Apply to area(s) 2 (two) times daily. [facility] nystatin 100,000 unit/gram powder 2023-0 6-27 00:00: 00 Yes [id number] Apply to area(s) 2 (two) times daily. [facility] nystatin 100,000 unit/gram powder 2023-0 6-27 00:00: 00 Yes [id number] Apply to area(s) 2 (two) times daily. [facility] nystatin 100,000 unit/gram powder 3-0 6-27 00:00: 00 Yes [id number] Apply to area(s) 2 (two) times daily. [facility] nystatin 100,000 unit/gram powder 2023-0 6-27 00:00: 00 Yes [id number] Apply to area(s) 2 (two) times daily. [facility] nystatin 100,000 unit/gram powder 3-0 6-27 00:00: 00 Yes [id number] Apply to area(s) 2 (two) times daily. [facility] nystatin 100,000 unit/gram powder 3-0 6-27 00:00: 00 Yes [id number] Apply to area(s) 2 (two) times daily. [facility] nystatin 100,000 unit/gram powder 3-0 6-27 00:00: 00 Yes [id number] Apply to area(s) 2 (two) times daily. [facility] nystatin 100,000 unit/gram powder 3-0 6-27 00:00: 00 Yes [id number] Apply to area(s) 2 (two) times daily. [facility] nystatin 100,000 unit/gram powder 3-0 6-27 00:00: 00 Yes [id number] Apply to area(s) 2 (two) times daily. [facility] nystatin 100,000 unit/gram powder 2023-0 6-27 00:00: 00 Yes [id number] Apply to area(s) 2 (two) times daily. [facility] nystatin 100,000 unit/gram powder 2023-0 6-27 00:00: 00 Yes [id number] Apply to area(s) 2 (two) times daily. [facility] nystatin 100,000 unit/gram powder 2023-0 6-27 00:00: 00 Yes [id number] Apply to area(s) 2 (two) times daily. [facility] nystatin 100,000 unit/gram powder 2023-0 6-27 00:00: 00 Yes [id number] Apply to area(s) 2 (two) times daily. [facility] nystatin 100,000 unit/gram powder 2023-0 6-27 00:00: 00 Yes [id number] Apply to area(s) 2 (two) times daily. [facility] nystatin 100,000 unit/gram powder 2023-0 6-27 00:00: 00 Yes [id number] Apply to area(s) 2 (two) times daily. [facility] nystatin 100,000 unit/gram powder 2023-0 6-27 00:00: 00 Yes [id number] Apply to area(s) 2 (two) times daily. [facility] nystatin 100,000 unit/gram powder 2023-0 6-27 00:00: 00 Yes [id number] Apply to area(s) 2 (two) times daily. [facility] nystatin 100,000 unit/gram powder 3-0 6-27 00:00: 00 Yes [id number] Apply to area(s) 2 (two) times daily. [facility] nystatin 100,000 unit/gram powder 3-0 6-27 00:00: 00 Yes [id number] Apply to area(s) 2 (two) times daily. [facility] nystatin 100,000 unit/gram powder 2023-0 6-27 00:00: 00 Yes [id number] Apply to area(s) 2 (two) times daily. [facility] nystatin 100,000 unit/gram powder 2023-0 6-27 00:00: 00 Yes [id number] Apply to area(s) 2 (two) times daily. [facility] nystatin 100,000 unit/gram powder 2023-0 6-27 00:00: 00 Yes [id number] Apply to area(s) 2 (two) times daily. [facility] nystatin 100,000 unit/gram powder 2023-0 6-27 00:00: 00 Yes [id number] Apply to area(s) 2 (two) times daily. [facility] nystatin 100,000 unit/gram powder 2023-0 6-27 00:00: 00 Yes [id number] Apply to area(s) 2 (two) times daily. [facility] nystatin 100,000 unit/gram powder 2023-0 6-27 00:00: 00 Yes [id number] Apply to area(s) 2 (two) times daily. [facility] nystatin 100,000 unit/gram powder 2023-0 6-27 00:00: 00 Yes [id number] Apply to area(s) 2 (two) times daily. [facility] nystatin 100,000 unit/gram powder 3-0 6-27 00:00: 00 Yes [id number] Apply to area(s) 2 (two) times daily. [facility] nystatin 100,000 unit/gram powder 2023-0 6-27 00:00: 00 Yes [id number] Apply to area(s) 2 (two) times daily. [facility] nystatin 100,000 unit/gram powder 3-0 6-27 00:00: 00 Yes [id number] Apply to area(s) 2 (two) times daily. [facility] nystatin 100,000 unit/gram powder 3-0 6-27 00:00: 00 Yes [id number] Apply to area(s) 2 (two) times daily. [facility] nystatin 100,000 unit/gram powder 3-0 6-27 00:00: 00 Yes [id number] Apply to area(s) 2 (two) times daily. [facility] nystatin 100,000 unit/gram powder 2023-0 6-27 00:00: 00 Yes [id number] Apply to area(s) 2 (two) times daily. [facility] nystatin 100,000 unit/gram powder 2023-0 6-27 00:00: 00 Yes [id number] Apply to area(s) 2 (two) times daily. [facility] nystatin 100,000 unit/gram powder 2023-0 6-27 00:00: 00 Yes [id number] Apply to area(s) 2 (two) times daily. [facility] nystatin 100,000 unit/gram powder 3-0 6-27 00:00: 00 Yes [id number] Apply to area(s) 2 (two) times daily. [facility] nystatin 100,000 unit/gram powder 3-0 6-27 00:00: 00 Yes [id number] Apply to area(s) 2 (two) times daily. [facility] nystatin 100,000 unit/gram powder 3-0 6-27 00:00: 00 Yes [id number] Apply to area(s) 2 (two) times daily. [facility] nystatin 100,000 unit/gram powder 3-0 6-27 00:00: 00 Yes [id number] Apply to area(s) 2 (two) times daily. [facility] nystatin 100,000 unit/gram powder 3-0 6-27 00:00: 00 Yes [id number] Apply to area(s) 2 (two) times daily. [facility] nystatin 100,000 unit/gram powder 3-0 6-27 00:00: 00 Yes [id number] Apply to area(s) 2 (two) times daily. [facility] nystatin 100,000 unit/gram powder 2022-0 6-27 00:00: 00 Yes [id number] Apply to area(s) 2 (two) times daily. [facility] nystatin 100,000 unit/gram powder 3-0 6-27 00:00: 00 Yes [id number] Apply to area(s) 2 (two) times daily. [facility] nystatin 100,000 unit/gram powder 3-0 6-27 00:00: 00 Yes [id number] Apply to area(s) 2 (two) times daily. [facility] nystatin 100,000 unit/gram powder 3-0 6-27 00:00: 00 07-09 00:00 :00 No [id number] Apply to area(s) 2 (two) times daily. [facility] nystatin 100,000 unit/gram powder 01-27 00:00: 00 07-09 00:00 :00 No [id number] Apply to area(s) 2 (two) times daily. [facility] SPIRONOLACT ONE 25 mg tablet 0 01-26 00:00: 00 Yes [id number] TAKE 1 TABLET BY MOUTH IN THE MORNING AND IN THE EVENING [facility] nystatin 100,000 unit/mL suspension 01-26 00:00: 00 Yes [id number] Take 5 mL by mouth 4 (four) times daily. [facility] SPIRONOLACT ONE 25 mg tablet 2022-0 01-26 00:00: 00 Yes [id number] TAKE 1 TABLET BY MOUTH IN THE MORNING AND IN THE EVENING [facility] SPIRONOLACT ONE 25 mg tablet 2022-0 01-26 00:00: 00 Yes [id number] TAKE 1 TABLET BY MOUTH IN THE MORNING AND IN THE EVENING [facility] SPIRONOLACT ONE 25 mg tablet 2022-0 01-26 00:00: 00 Yes [id number] TAKE 1 TABLET BY MOUTH IN THE MORNING AND IN THE EVENING [facility] SPIRONOLACT ONE 25 mg tablet 2022-0 01-26 00:00: 00 Yes [id number] TAKE 1 TABLET BY MOUTH IN THE MORNING AND IN THE EVENING [facility] SPIRONOLACT ONE 25 mg tablet 2022-0 01-26 00:00: 00 Yes [id number] TAKE 1 TABLET BY MOUTH IN THE MORNING AND IN THE EVENING [facility] SPIRONOLACT ONE 25 mg tablet 2022-0 01-26 00:00: 00 Yes [id number] TAKE 1 TABLET BY MOUTH IN THE MORNING AND IN THE EVENING [facility] SPIRONOLACT ONE 25 mg tablet 2022-0 01-26 00:00: 00 Yes [id number] TAKE 1 TABLET BY MOUTH IN THE MORNING AND IN THE EVENING [facility] SPIRONOLACT ONE 25 mg tablet 3-0 - 00:00: 00 Yes [id number] TAKE 1 TABLET BY MOUTH IN THE MORNING AND IN THE EVENING [facility] SPIRONOLACT ONE 25 mg tablet 2022-0 6-26 00:00: 00 Yes [id number] TAKE 1 TABLET BY MOUTH IN THE MORNING AND IN THE EVENING [facility] SPIRONOLACT ONE 25 mg tablet 2023-0 6-26 00:00: 00 Yes [id number] TAKE 1 TABLET BY MOUTH IN THE MORNING AND IN THE EVENING [facility] SPIRONOLACT ONE 25 mg tablet 2023-0 6-26 00:00: 00 Yes [id number] TAKE 1 TABLET BY MOUTH IN THE MORNING AND IN THE EVENING [facility] SPIRONOLACT ONE 25 mg tablet 2023-0 6-26 00:00: 00 Yes [id number] TAKE 1 TABLET BY MOUTH IN THE MORNING AND IN THE EVENING [facility] SPIRONOLACT ONE 25 mg tablet 2023-0 6-26 00:00: 00 Yes [id number] TAKE 1 TABLET BY MOUTH IN THE MORNING AND IN THE EVENING [facility] SPIRONOLACT ONE 25 mg tablet 2023-0 6-26 00:00: 00 Yes [id number] TAKE 1 TABLET BY MOUTH IN THE MORNING AND IN THE EVENING [facility] SPIRONOLACT ONE 25 mg tablet 2023-0 6-26 00:00: 00 Yes [id number] TAKE 1 TABLET BY MOUTH IN THE MORNING AND IN THE EVENING [facility] SPIRONOLACT ONE 25 mg tablet 3-0 6-26 00:00: 00 Yes [id number] TAKE 1 TABLET BY MOUTH IN THE MORNING AND IN THE EVENING [facility] SPIRONOLACT ONE 25 mg tablet 2023-0 6-26 00:00: 00 Yes [id number] TAKE 1 TABLET BY MOUTH IN THE MORNING AND IN THE EVENING [facility] SPIRONOLACT ONE 25 mg tablet 2023-0 6-26 00:00: 00 Yes [id number] TAKE 1 TABLET BY MOUTH IN THE MORNING AND IN THE EVENING [facility] SPIRONOLACT ONE 25 mg tablet 2023-0 6-26 00:00: 00 Yes [id number] TAKE 1 TABLET BY MOUTH IN THE MORNING AND IN THE EVENING [facility] SPIRONOLACT ONE 25 mg tablet 2023-0 6-26 00:00: 00 Yes [id number] TAKE 1 TABLET BY MOUTH IN THE MORNING AND IN THE EVENING [facility] SPIRONOLACT ONE 25 mg tablet 01-26 00:00: 00 Yes [id number] TAKE 1 TABLET BY MOUTH IN THE MORNING AND IN THE EVENING [facility] SPIRONOLACT ONE 25 mg tablet 01-26 00:00: 00 04-13 00:00 :00 No [id number] TAKE 1 TABLET BY MOUTH IN THE MORNING AND IN THE EVENING [facility] 01-26 00:00: 00 01-27 00:00 :00 No [id number] Take 5 mL by mouth 4 (four) times daily. [facility] nystatin 100,000 unit/gram powder 0 01-12 00:00: 00 Yes [id number] Apply to area(s) 2 (two) times daily. [facility] nystatin 100,000 unit/gram powder 0 01-12 00:00: 00 Yes [id number] Apply to area(s) 2 (two) times daily. [facility] nystatin 100,000 unit/gram powder 2022-0 01-12 00:00: 00 Yes [id number] Apply to area(s) 2 (two) times daily. [facility] nystatin 100,000 unit/gram powder 0 01-12 00:00: 00 Yes [id number] Apply to area(s) 2 (two) times daily. [facility] nystatin 100,000 unit/gram powder 2022-0 01-12 00:00: 00 Yes [id number] Apply to area(s) 2 (two) times daily. [facility] nystatin 100,000 unit/gram powder 2022-0 12 00:00: 00 Yes [id number] Apply to area(s) 2 (two) times daily. [facility] nystatin 100,000 unit/gram powder 2022-0 12 00:00: 00 Yes [id number] Apply to area(s) 2 (two) times daily. [facility] nystatin 100,000 unit/gram powder 2023-0 6-12 00:00: 00 Yes [id number] Apply to area(s) 2 (two) times daily. [facility] nystatin 100,000 unit/gram powder 2023-0 6-12 00:00: 00 Yes [id number] Apply to area(s) 2 (two) times daily. [facility] nystatin 100,000 unit/gram powder 2023-0 6-12 00:00: 00 Yes [id number] Apply to area(s) 2 (two) times daily. [facility] nystatin 100,000 unit/gram powder 2023-0 6-12 00:00: 00 Yes [id number] Apply to area(s) 2 (two) times daily. [facility] nystatin 100,000 unit/gram powder 2023-0 6-12 00:00: 00 Yes [id number] Apply to area(s) 2 (two) times daily. [facility] nystatin 100,000 unit/gram powder 2023-0 6-12 00:00: 00 Yes [id number] Apply to area(s) 2 (two) times daily. [facility] nystatin 100,000 unit/gram powder 2023-0 6-12 00:00: 00 Yes [id number] Apply to area(s) 2 (two) times daily. [facility] nystatin 100,000 unit/gram powder 2023-0 6-12 00:00: 00 Yes [id number] Apply to area(s) 2 (two) times daily. [facility] nystatin 100,000 unit/gram powder 2023-0 6-12 00:00: 00 Yes [id number] Apply to area(s) 2 (two) times daily. [facility] nystatin 100,000 unit/gram powder 2023-0 6-12 00:00: 00 Yes [id number] Apply to area(s) 2 (two) times daily. [facility] nystatin 100,000 unit/gram powder 2023-0 6-12 00:00: 00 Yes [id number] Apply to area(s) 2 (two) times daily. [facility] nystatin 100,000 unit/gram powder 2023-0 6-12 00:00: 00 Yes [id number] Apply to area(s) 2 (two) times daily. [facility] nystatin 100,000 unit/gram powder 2023-0 6-12 00:00: 00 Yes [id number] Apply to area(s) 2 (two) times daily. [facility] nystatin 100,000 unit/gram powder 2023-0 6-12 00:00: 00 Yes [id number] Apply to area(s) 2 (two) times daily. [facility] nystatin 100,000 unit/gram powder 2023-0 6-12 00:00: 00 Yes [id number] Apply to area(s) 2 (two) times daily. [facility] nystatin 100,000 unit/gram powder 2023-0 6-12 00:00: 00 Yes [id number] Apply to area(s) 2 (two) times daily. [facility] nystatin 100,000 unit/gram powder 2023-0 6-12 00:00: 00 Yes [id number] Apply to area(s) 2 (two) times daily. [facility] nystatin 100,000 unit/gram powder 2023-0 6-12 00:00: 00 Yes [id number] Apply to area(s) 2 (two) times daily. [facility] nystatin 100,000 unit/gram powder 2023-0 6-12 00:00: 00 Yes [id number] Apply to area(s) 2 (two) times daily. [facility] nystatin 100,000 unit/gram powder 2023-0 6-12 00:00: 00 Yes [id number] Apply to area(s) 2 (two) times daily. [facility] nystatin 100,000 unit/gram powder 2023-0 6-12 00:00: 00 Yes [id number] Apply to area(s) 2 (two) times daily. [facility] nystatin 100,000 unit/gram powder 2023-0 6-12 00:00: 00 Yes [id number] Apply to area(s) 2 (two) times daily. [facility] nystatin 100,000 unit/gram powder 2023-0 6-12 00:00: 00 Yes [id number] Apply to area(s) 2 (two) times daily. [facility] nystatin 100,000 unit/gram powder 2023-0 6-12 00:00: 00 Yes [id number] Apply to area(s) 2 (two) times daily. [facility] nystatin 100,000 unit/gram powder 2023-0 6-12 00:00: 00 Yes [id number] Apply to area(s) 2 (two) times daily. [facility] nystatin 100,000 unit/gram powder 2023-0 6-12 00:00: 00 Yes [id number] Apply to area(s) 2 (two) times daily. [facility] nystatin 100,000 unit/gram powder 2023-0 6-12 00:00: 00 Yes [id number] Apply to area(s) 2 (two) times daily. [facility] nystatin 100,000 unit/gram powder 2023-0 6-12 00:00: 00 Yes [id number] Apply to area(s) 2 (two) times daily. [facility] nystatin 100,000 unit/gram powder 2023-0 6-12 00:00: 00 Yes [id number] Apply to area(s) 2 (two) times daily. [facility] nystatin 100,000 unit/gram powder 2023-0 6-12 00:00: 00 Yes [id number] Apply to area(s) 2 (two) times daily. [facility] nystatin 100,000 unit/gram powder 2023-0 6-12 00:00: 00 Yes [id number] Apply to area(s) 2 (two) times daily. [facility] nystatin 100,000 unit/gram powder 2023-0 6-12 00:00: 00 Yes [id number] Apply to area(s) 2 (two) times daily. [facility] nystatin 100,000 unit/gram powder 2023-0 6-12 00:00: 00 Yes [id number] Apply to area(s) 2 (two) times daily. [facility] nystatin 100,000 unit/gram powder 2023-0 6-12 00:00: 00 Yes [id number] Apply to area(s) 2 (two) times daily. [facility] nystatin 100,000 unit/gram powder 2023-0 6-12 00:00: 00 Yes [id number] Apply to area(s) 2 (two) times daily. [facility] nystatin 100,000 unit/gram powder 2023-0 6-12 00:00: 00 Yes [id number] Apply to area(s) 2 (two) times daily. [facility] nystatin 100,000 unit/gram powder 2023-0 6-12 00:00: 00 Yes [id number] Apply to area(s) 2 (two) times daily. [facility] nystatin 100,000 unit/gram powder 2023-0 6-12 00:00: 00 Yes [id number] Apply to area(s) 2 (two) times daily. [facility] nystatin 100,000 unit/gram powder 2023-0 6-12 00:00: 00 Yes [id number] Apply to area(s) 2 (two) times daily. [facility] nystatin 100,000 unit/gram powder 2023-0 6-12 00:00: 00 Yes [id number] Apply to area(s) 2 (two) times daily. [facility] nystatin 100,000 unit/gram powder 2023-0 6-12 00:00: 00 Yes [id number] Apply to area(s) 2 (two) times daily. [facility] nystatin 100,000 unit/gram powder 2023-0 6-12 00:00: 00 Yes [id number] Apply to area(s) 2 (two) times daily. [facility] nystatin 100,000 unit/gram powder 2023-0 6-12 00:00: 00 Yes [id number] Apply to area(s) 2 (two) times daily. [facility] nystatin 100,000 unit/gram powder 2023-0 6-12 00:00: 00 Yes [id number] Apply to area(s) 2 (two) times daily. [facility] nystatin 100,000 unit/gram powder 2023-0 6-12 00:00: 00 Yes [id number] Apply to area(s) 2 (two) times daily. [facility] nystatin 100,000 unit/gram powder 2023-0 6-12 00:00: 00 Yes [id number] Apply to area(s) 2 (two) times daily. [facility] nystatin 100,000 unit/gram powder 2023-0 6-12 00:00: 00 Yes [id number] Apply to area(s) 2 (two) times daily. [facility] nystatin 100,000 unit/gram powder 2023-0 6-12 00:00: 00 Yes [id number] Apply to area(s) 2 (two) times daily. [facility] nystatin 100,000 unit/gram powder 2023-0 6-12 00:00: 00 Yes [id number] Apply to area(s) 2 (two) times daily. [facility] nystatin 100,000 unit/gram powder 2023-0 6-12 00:00: 00 Yes [id number] Apply to area(s) 2 (two) times daily. [facility] nystatin 100,000 unit/gram powder 2023-0 6-12 00:00: 00 Yes [id number] Apply to area(s) 2 (two) times daily. [facility] nystatin 100,000 unit/gram powder 2023-0 6-12 00:00: 00 Yes [id number] Apply to area(s) 2 (two) times daily. [facility] nystatin 100,000 unit/gram powder 2023-0 6-12 00:00: 00 Yes [id number] Apply to area(s) 2 (two) times daily. [facility] nystatin 100,000 unit/gram powder 2023-0 6-12 00:00: 00 Yes [id number] Apply to area(s) 2 (two) times daily. [facility] nystatin 100,000 unit/gram powder 2023-0 6-12 00:00: 00 Yes [id number] Apply to area(s) 2 (two) times daily. [facility] nystatin 100,000 unit/gram powder 01-12 00:00: 00 07-22 00:00 :00 No [id number] Apply to area(s) 2 (two) times daily. [facility] nystatin 100,000 unit/gram powder 01-12 00:00: 00 07-22 00:00 :00 No [id number] Apply to area(s) 2 (two) times daily. [facility] nystatin 100,000 unit/gram powder 01-12 00:00: 00 07-22 00:00 :00 No [id number] Apply to area(s) 2 (two) times daily. [facility] traMADoL 50 mg tablet 01-07 00:00: 00 01-15 04:59 :00 No [id number] 50mg Take 1 tablet by mouth every 6 (six) hours as needed for Pain (scale 4-6) for up to 7 days. Indication s: chronic pain [facility] traMADoL 50 mg tablet 0 01-07 00:00: 00 01-15 04:59 :00 No [id number] 50mg Take 1 tablet by mouth every 6 (six) hours as needed for Pain (scale 4-6) for up to 7 days. Indication s: chronic pain [facility] traMADoL 50 mg tablet 0 01-07 00:00: 00 01-15 04:59 :00 No [id number] 50mg Take 1 tablet by mouth every 6 (six) hours as needed for Pain (scale 4-6) for up to 7 days. Indication s: chronic pain [facility] nystatin 100,000 unit/gram powder 0 01-02 00:00: 00 Yes [id number] Apply to area(s) 2 (two) times daily. [facility] nystatin 100,000 unit/gram powder 0 6 00:00: 00 Yes [id number] Apply to area(s) 2 (two) times daily. [facility] nystatin 100,000 unit/gram powder 01-02 00:00: 00 01-12 00:00 :00 No [id number] Apply to area(s) 2 (two) times daily. [facility] NYSTATIN 100,000 unit/mL suspension 01-01 00:00: 00 Yes [id number] SHAKE LIQUID AND TAKE 5 ML BY MOUTH FOUR TIMES DAILY [facility] NYSTATIN 100,000 unit/mL suspension 01-01 00:00: 00 Yes [id number] SHAKE LIQUID AND TAKE 5 ML BY MOUTH FOUR TIMES DAILY [facility] NYSTATIN 100,000 unit/mL suspension 01-01 00:00: 00 Yes [id number] SHAKE LIQUID AND TAKE 5 ML BY MOUTH FOUR TIMES DAILY [facility] NYSTATIN 100,000 unit/mL suspension 01-01 00:00: 00 Yes [id number] SHAKE LIQUID AND TAKE 5 ML BY MOUTH FOUR TIMES DAILY [facility] NYSTATIN 100,000 unit/mL suspension 01-01 00:00: 00 Yes [id number] SHAKE LIQUID AND TAKE 5 ML BY MOUTH FOUR TIMES DAILY [facility] NYSTATIN 100,000 unit/mL suspension 01-01 00:00: 00 Yes [id number] SHAKE LIQUID AND TAKE 5 ML BY MOUTH FOUR TIMES DAILY [facility] NYSTATIN 100,000 unit/mL suspension 01-01 00:00: 00 Yes [id number] SHAKE LIQUID AND TAKE 5 ML BY MOUTH FOUR TIMES DAILY [facility] NYSTATIN 100,000 unit/mL suspension 01-01 00:00: 00 Yes [id number] SHAKE LIQUID AND TAKE 5 ML BY MOUTH FOUR TIMES DAILY [facility] NYSTATIN 100,000 unit/mL suspension 01-01 00:00: 00 01-26 00:00 :00 No [id number] SHAKE LIQUID AND TAKE 5 ML BY MOUTH FOUR TIMES DAILY [facility] gabapentin 300 mg capsule 12-28 00:00: 00 Yes [id number] TAKE 1 CAPSULE BY MOUTH FOUR TIMES DAILY [facility] gabapentin 300 mg capsule 2023-0 5-28 00:00: 00 Yes [id number] TAKE 1 CAPSULE BY MOUTH FOUR TIMES DAILY [facility] gabapentin 300 mg capsule 2023-0 5-28 00:00: 00 Yes [id number] TAKE 1 CAPSULE BY MOUTH FOUR TIMES DAILY [facility] gabapentin 300 mg capsule 2023-0 5-28 00:00: 00 Yes [id number] TAKE 1 CAPSULE BY MOUTH FOUR TIMES DAILY [facility] gabapentin 300 mg capsule 2023-0 5-28 00:00: 00 Yes [id number] TAKE 1 CAPSULE BY MOUTH FOUR TIMES DAILY [facility] gabapentin 300 mg capsule 2023-0 5-28 00:00: 00 Yes [id number] TAKE 1 CAPSULE BY MOUTH FOUR TIMES DAILY [facility] gabapentin 300 mg capsule 2023-0 5-28 00:00: 00 Yes [id number] TAKE 1 CAPSULE BY MOUTH FOUR TIMES DAILY [facility] gabapentin 300 mg capsule 2023-0 5-28 00:00: 00 Yes [id number] TAKE 1 CAPSULE BY MOUTH FOUR TIMES DAILY [facility] gabapentin 300 mg capsule 3-0 -28 00:00: 00 Yes [id number] TAKE 1 CAPSULE BY MOUTH FOUR TIMES DAILY [facility] gabapentin 300 mg capsule 2023-0 5-28 00:00: 00 Yes [id number] TAKE 1 CAPSULE BY MOUTH FOUR TIMES DAILY [facility] gabapentin 300 mg capsule 2023-0 5-28 00:00: 00 Yes [id number] TAKE 1 CAPSULE BY MOUTH FOUR TIMES DAILY [facility] gabapentin 300 mg capsule 3-0 5-28 00:00: 00 Yes [id number] TAKE 1 CAPSULE BY MOUTH FOUR TIMES DAILY [facility] gabapentin 300 mg capsule 2023-0 5-28 00:00: 00 Yes [id number] TAKE 1 CAPSULE BY MOUTH FOUR TIMES DAILY [facility] gabapentin 300 mg capsule 2023-0 5-28 00:00: 00 Yes [id number] TAKE 1 CAPSULE BY MOUTH FOUR TIMES DAILY [facility] gabapentin 300 mg capsule 2023-0 5-28 00:00: 00 Yes [id number] TAKE 1 CAPSULE BY MOUTH FOUR TIMES DAILY [facility] gabapentin 300 mg capsule 2023-0 5-28 00:00: 00 Yes [id number] TAKE 1 CAPSULE BY MOUTH FOUR TIMES DAILY [facility] gabapentin 300 mg capsule 2023-0 5-28 00:00: 00 Yes [id number] TAKE 1 CAPSULE BY MOUTH FOUR TIMES DAILY [facility] gabapentin 300 mg capsule 2023-0 5-28 00:00: 00 Yes [id number] TAKE 1 CAPSULE BY MOUTH FOUR TIMES DAILY [facility] gabapentin 300 mg capsule 3-0 5-28 00:00: 00 Yes [id number] TAKE 1 CAPSULE BY MOUTH FOUR TIMES DAILY [facility] gabapentin 300 mg capsule 2023-0 -28 00:00: 00 Yes [id number] TAKE 1 CAPSULE BY MOUTH FOUR TIMES DAILY [facility] gabapentin 300 mg capsule 2023-0 5-28 00:00: 00 Yes [id number] TAKE 1 CAPSULE BY MOUTH FOUR TIMES DAILY [facility] gabapentin 300 mg capsule 2023-0 5-28 00:00: 00 Yes [id number] TAKE 1 CAPSULE BY MOUTH FOUR TIMES DAILY [facility] gabapentin 300 mg capsule 3-0 -28 00:00: 00 Yes [id number] TAKE 1 CAPSULE BY MOUTH FOUR TIMES DAILY [facility] gabapentin 300 mg capsule 3-0 5-28 00:00: 00 Yes [id number] TAKE 1 CAPSULE BY MOUTH FOUR TIMES DAILY [facility] gabapentin 300 mg capsule 2023-0 5-28 00:00: 00 Yes [id number] TAKE 1 CAPSULE BY MOUTH FOUR TIMES DAILY [facility] gabapentin 300 mg capsule 3-0 5-28 00:00: 00 Yes [id number] TAKE 1 CAPSULE BY MOUTH FOUR TIMES DAILY [facility] gabapentin 300 mg capsule 3-0 5-28 00:00: 00 Yes [id number] TAKE 1 CAPSULE BY MOUTH FOUR TIMES DAILY [facility] gabapentin 300 mg capsule 2023-0 5-28 00:00: 00 Yes [id number] TAKE 1 CAPSULE BY MOUTH FOUR TIMES DAILY [facility] gabapentin 300 mg capsule 2023-0 5-28 00:00: 00 Yes [id number] [facility] 28 00:00: 00 Yes [id number] TAKE 1 CAPSULE BY MOUTH [facility]-0 28 00:00: 00 Yes [id number] TAKE 1 CAPSULE BY MOUTH FOUR TIMES [facility] 3-0 12-28 00:00: 00 Yes [id number] TAKE 1 CAPSULE BY MOUTH FOUR TIMES [facility] 3-0 12-28 00:00: 00 Yes [id number] TAKE 1 CAPSULE BY MOUTH FOUR TIMES [facility] 2022-0 12-28 00:00: 00 Yes [id number] TAKE 1 CAPSULE BY MOUTH FOUR TIMES DAILY [facility] gabapentin 300 mg capsule 2022-0 12-28 00:00: 00 Yes [id number] TAKE 1 CAPSULE BY MOUTH FOUR TIMES [facility] 3-0 12-28 00:00: 00 Yes [id number] TAKE 1 CAPSULE BY MOUTH FOUR TIMES DAILY [facility] 3-0 12-28 00:00: 00 Yes [id number] TAKE 1 CAPSULE BY MOUTH FOUR TIMES DAILY [facility] gabapentin 300 mg capsule 2022-0 12-28 00:00: 00 Yes [id number] TAKE 1 CAPSULE BY MOUTH FOUR TIMES DAILY [facility] gabapentin 300 mg capsule 2022-0 12-28 00:00: 00 04-30 00:00 :00 No [id number] TAKE 1 CAPSULE BY MOUTH FOUR TIMES DAILY [facility] escitalopra m oxalate 20 mg tablet 12-22 10:42: 08 12-22 00:00 :00 No 1 tablet [facility] escitalopra m oxalate 20 mg tablet 12-22 10:42: 08 12-22 00:00 :00 No 1 tablet [facility] fluconazole (DIFLUCAN) 150 mg tablet 12-22 00:00: 00 Yes [id number] Weekly for 4 weeks [facility] nystatin 100,000 unit/gram powder 2022-0 12-22 00:00: 00 Yes [id number] Apply to area(s) 2 (two) times daily. [facility] fluconazole (DIFLUCAN) 150 mg tablet 0 12-22 00:00: 00 Yes [id number] Weekly for 4 weeks [facility] nystatin 100,000 unit/gram powder 2022-0 12-22 00:00: 00 Yes [id number] Apply to area(s) 2 (two) times daily. [facility] fluconazole (DIFLUCAN) 150 mg tablet 0 12-22 00:00: 00 Yes [id number] Weekly for 4 weeks [facility] nystatin 100,000 unit/gram powder 2022-0 12-22 00:00: 00 Yes [id number] Apply to area(s) 2 (two) times daily. [facility] fluconazole (DIFLUCAN) 150 mg tablet 0 12-22 00:00: 00 Yes [id number] Weekly for 4 weeks [facility] nystatin 100,000 unit/gram powder 0 12-22 00:00: 00 Yes [id number] Apply to area(s) 2 (two) times daily. [facility] fluconazole (DIFLUCAN) 150 mg tablet 0 12-22 00:00: 00 Yes [id number] Weekly for 4 weeks [facility] nystatin 100,000 unit/gram powder 0 12-22 00:00: 00 Yes [id number] Apply to area(s) 2 (two) times daily. [facility] fluconazole (DIFLUCAN) 150 mg tablet 0 12-22 00:00: 00 Yes [id number] Weekly for 4 weeks [facility] nystatin 100,000 unit/gram powder 2022-0 12-22 00:00: 00 Yes [id number] Apply to area(s) 2 (two) times daily. [facility] fluconazole (DIFLUCAN) 150 mg tablet 2022-0 12-22 00:00: 00 Yes [id number] Weekly for 4 weeks [facility] fluconazole (DIFLUCAN) 150 mg tablet 3-0 22 00:00: 00 Yes [id number] Weekly for 4 weeks [facility] fluconazole (DIFLUCAN) 150 mg tablet 3-0 5-22 00:00: 00 Yes [id number] Weekly for 4 weeks [facility] fluconazole (DIFLUCAN) 150 mg tablet 3-0 -22 00:00: 00 Yes [id number] Weekly for 4 weeks [facility] fluconazole (DIFLUCAN) 150 mg tablet 3-0 - 00:00: 00 Yes [id number] Weekly for 4 weeks [facility] fluconazole (DIFLUCAN) 150 mg tablet 3-0 - 00:00: 00 Yes [id number] [facility] tablet 3-0 -22 00:00: 00 Yes [id number] [facility] 150 mg tablet 3-0 12-22 00:00: 00 Yes [id number] [facility] 150 mg tablet 3-0 12-22 00:00: 00 Yes [id number] [facility] 150 mg tablet 3-0 - 00:00: 00 Yes [id number] [facility] 150 mg tablet 3-0 -22 00:00: 00 Yes [id number] [facility] 150 mg tablet 3-0 -22 00:00: 00 Yes [id number] [facility] 150 mg tablet 3-0 -22 00:00: 00 Yes [id number] Weekly for 4 weeks [facility] fluconazole (DIFLUCAN) 150 mg tablet 3-0 5-22 00:00: 00 Yes [id number] Weekly for 4 weeks [facility] fluconazole (DIFLUCAN) 150 mg tablet 3-0 5-22 00:00: 00 Yes [id number] [facility] 150 mg tablet 3-0 12-22 00:00: 00 Yes [id number] Weekly for 4 weeks [facility] fluconazole (DIFLUCAN) 150 mg tablet 3-0 12-22 00:00: 00 Yes [id number] [facility] 150 mg tablet 3-0 12-22 00:00: 00 Yes [id number] [facility]AN[facility] 150 mg tablet 3-0 12-22 00:00: 00 Yes [id number] [facility]AN[facility] 150 mg tablet 2022-0 12-22 00:00: 00 Yes [id number] [facility]AN[facility] 150 mg tablet 3-0 12-22 00:00: 00 Yes [id number] [facility]AN[facility] 150 mg tablet 3-0 12-22 00:00: 00 Yes [id number] [facility]AN[facility] 150 mg tablet 2022-0 12-22 00:00: 00 Yes [id number] Weekly for 4 weeks [facility] fluconazole (DIFLUCAN) 150 mg tablet 3-0 12-22 00:00: 00 Yes [id number] [facility] 150 mg tablet 3-0 12-22 00:00: 00 Yes [id number] [facility]AN[facility] 150 mg tablet 3-0 12-22 00:00: 00 Yes [id number] [facility] for [facility]UCAN[facility] 150 mg tablet 3-0 12-22 00:00: 00 Yes [id number] [facility] for [facility]AN[facility] 150 mg tablet 3-0 22 00:00: 00 Yes [id number] [facility] 150 mg tablet 0 12-22 00:00: 00 Yes [id number] Weekly for 4 weeks [facility] fluconazole (DIFLUCAN) 150 mg tablet 0 12-22 00:00: 00 Yes [id number] Weekly for 4 weeks [facility] fluconazole (DIFLUCAN) 150 mg tablet 0 12-22 00:00: 00 Yes [id number] Weekly for 4 weeks [facility] fluconazole (DIFLUCAN) 150 mg tablet 12-22 00:00: 00 04-13 00:00 :00 No [id number] Weekly for 4 weeks [facility] nystatin 100,000 unit/gram powder 12-22 00:00: 00 01-02 00:00 :00 No [id number] Apply to area(s) 2 (two) times daily. [facility] venlafaxine XR 150 mg 24 hr capsule 2022-0 20 00:00: 00 Yes [facility] venlafaxine XR 150 mg 24 hr capsule 2022-0 -20 00:00: 00 Yes [facility] venlafaxine XR 150 mg 24 hr capsule 2022-0 -20 00:00: 00 Yes [facility] venlafaxine XR 150 mg 24 hr capsule 3-0 -20 00:00: 00 Yes [facility] venlafaxine XR 150 mg 24 hr capsule 3-0 -20 00:00: 00 Yes [facility] venlafaxine XR 150 mg 24 hr capsule 3-0 5-20 00:00: 00 Yes [facility] venlafaxine XR 150 mg 24 hr capsule 3-0 5-20 00:00: 00 Yes [facility] venlafaxine XR 150 mg 24 hr capsule 3-0 5-20 00:00: 00 Yes [facility] venlafaxine XR 150 mg 24 hr capsule 3-0 5-20 00:00: 00 Yes [facility] venlafaxine XR 150 mg 24 hr capsule 3-0 5-20 00:00: 00 Yes [facility] venlafaxine XR 150 mg 24 hr capsule 3-0 -20 00:00: 00 Yes [facility] venlafaxine XR 150 mg 24 hr capsule 3-0 -20 00:00: 00 Yes [facility] venlafaxine XR 150 mg 24 hr capsule 3-0 5-20 00:00: 00 Yes [facility] venlafaxine XR 150 mg 24 hr capsule 3-0 -20 00:00: 00 Yes [facility] venlafaxine XR 150 mg 24 hr capsule 3-0 -20 00:00: 00 Yes [facility] venlafaxine XR 150 mg 24 hr capsule 3-0 -20 00:00: 00 Yes [facility] venlafaxine XR 150 mg 24 hr capsule 3-0 -20 00:00: 00 Yes [facility] venlafaxine XR 150 mg 24 hr capsule 3-0 -20 00:00: 00 Yes [facility] venlafaxine XR 150 mg 24 hr capsule 3-0 -20 00:00: 00 Yes [facility] venlafaxine XR 150 mg 24 hr capsule 3-0 -20 00:00: 00 Yes [facility] venlafaxine XR 150 mg 24 hr capsule 3-0 5-20 00:00: 00 Yes [facility] venlafaxine XR 150 mg 24 hr capsule 3-0 -20 00:00: 00 Yes [facility] venlafaxine XR 150 mg 24 hr capsule 3-0 5-20 00:00: 00 Yes [facility] venlafaxine XR 150 mg 24 hr capsule 3-0 5-20 00:00: 00 Yes [facility] venlafaxine XR 150 mg 24 hr capsule 3-0 5-20 00:00: 00 Yes [facility] venlafaxine XR 150 mg 24 hr capsule 3-0 5-20 00:00: 00 Yes [facility] venlafaxine XR 150 mg 24 hr capsule 3-0 -20 00:00: 00 Yes [facility] venlafaxine XR 150 mg 24 hr capsule 3-0 -20 00:00: 00 Yes [facility] venlafaxine XR 150 mg 24 hr capsule 3-0 -20 00:00: 00 Yes [facility] venlafaxine XR 150 mg 24 hr capsule 3-0 -20 00:00: 00 Yes [facility] venlafaxine XR 150 mg 24 hr capsule 3-0 -20 00:00: 00 Yes [facility] venlafaxine XR 150 mg 24 hr capsule 3-0 -20 00:00: 00 Yes [facility] venlafaxine XR 150 mg 24 hr capsule 3-0 -20 00:00: 00 Yes [facility] venlafaxine XR 150 mg 24 hr capsule 3-0 -20 00:00: 00 Yes [facility] venlafaxine XR 150 mg 24 hr capsule 3-0 -20 00:00: 00 Yes [facility] venlafaxine XR 150 mg 24 hr capsule 2022-0 -20 00:00: 00 Yes [facility] venlafaxine XR 150 mg 24 hr capsule 2022-0 -20 00:00: 00 Yes [facility] venlafaxine XR 150 mg 24 hr capsule 3-0 -20 00:00: 00 Yes [facility] venlafaxine XR 150 mg 24 hr capsule 2022-0 -20 00:00: 00 Yes [facility] venlafaxine XR 150 mg 24 hr capsule 2022-0 -20 00:00: 00 Yes [facility] venlafaxine XR 150 mg 24 hr capsule 3-0 -20 00:00: 00 Yes [facility] venlafaxine XR 150 mg 24 hr capsule 3-0 5-20 00:00: 00 Yes [facility] venlafaxine XR 150 mg 24 hr capsule 2022-0 5-20 00:00: 00 Yes [facility] venlafaxine XR 150 mg 24 hr capsule 3-0 -20 00:00: 00 Yes [facility] venlafaxine XR 150 mg 24 hr capsule 3-0 -20 00:00: 00 Yes [facility] venlafaxine XR 150 mg 24 hr capsule 3-0 5-20 00:00: 00 Yes [facility] venlafaxine XR 150 mg 24 hr capsule 3-0 5-20 00:00: 00 Yes [facility] venlafaxine XR 150 mg 24 hr capsule 3-0 5-20 00:00: 00 Yes [facility] venlafaxine XR 150 mg 24 hr capsule 3-0 -20 00:00: 00 Yes [facility] venlafaxine XR 150 mg 24 hr capsule 3-0 5-20 00:00: 00 Yes [facility] venlafaxine XR 150 mg 24 hr capsule 3-0 5-20 00:00: 00 Yes [facility] venlafaxine XR 150 mg 24 hr capsule 3-0 5-20 00:00: 00 Yes [facility] venlafaxine XR 150 mg 24 hr capsule 3-0 5-20 00:00: 00 Yes [facility] venlafaxine XR 150 mg 24 hr capsule 3-0 5-20 00:00: 00 Yes [facility] venlafaxine XR 150 mg 24 hr capsule 3-0 5-20 00:00: 00 Yes [facility] venlafaxine XR 150 mg 24 hr capsule 3-0 5-20 00:00: 00 Yes [facility] venlafaxine XR 150 mg 24 hr capsule 3-0 5-20 00:00: 00 Yes [facility] venlafaxine XR 150 mg 24 hr capsule 3-0 5-20 00:00: 00 Yes [facility] venlafaxine XR 150 mg 24 hr capsule 3-0 5-20 00:00: 00 Yes [facility] venlafaxine XR 150 mg 24 hr capsule 3-0 5-20 00:00: 00 Yes [facility] venlafaxine XR 150 mg 24 hr capsule 3-0 -20 00:00: 00 Yes [facility] venlafaxine XR 150 mg 24 hr capsule 3-0 -20 00:00: 00 Yes [facility] venlafaxine XR 150 mg 24 hr capsule 3-0 5-20 00:00: 00 Yes [facility] venlafaxine XR 150 mg 24 hr capsule 3-0 -20 00:00: 00 Yes [facility] venlafaxine XR 150 mg 24 hr capsule 3-0 -20 00:00: 00 Yes [facility] venlafaxine XR 150 mg 24 hr capsule 3-0 -20 00:00: 00 Yes [facility] venlafaxine XR 150 mg 24 hr capsule 3-0 -20 00:00: 00 Yes [facility] venlafaxine XR 150 mg 24 hr capsule 3-0 -20 00:00: 00 Yes [facility] venlafaxine XR 150 mg 24 hr capsule 3-0 -20 00:00: 00 Yes [facility] venlafaxine XR 150 mg 24 hr capsule 3-0 -20 00:00: 00 Yes [facility] venlafaxine XR 150 mg 24 hr capsule 3-0 5-20 00:00: 00 Yes [facility] venlafaxine XR 150 mg 24 hr capsule 3-0 -20 00:00: 00 Yes [facility] venlafaxine XR 150 mg 24 hr capsule 3-0 5-20 00:00: 00 Yes [facility] venlafaxine XR 150 mg 24 hr capsule 3-0 5-20 00:00: 00 Yes [facility] venlafaxine XR 150 mg 24 hr capsule 3-0 5-20 00:00: 00 Yes [facility] venlafaxine XR 150 mg 24 hr capsule 3-0 5-20 00:00: 00 Yes [facility] venlafaxine XR 150 mg 24 hr capsule 3-0 -20 00:00: 00 Yes [facility] venlafaxine XR 150 mg 24 hr capsule 3-0 -20 00:00: 00 Yes [facility] venlafaxine XR 150 mg 24 hr capsule 3-0 -20 00:00: 00 Yes [facility] venlafaxine XR 150 mg 24 hr capsule 3-0 -20 00:00: 00 Yes [facility] venlafaxine XR 150 mg 24 hr capsule 3-0 -20 00:00: 00 Yes [facility] venlafaxine XR 150 mg 24 hr capsule 3-0 -20 00:00: 00 Yes [facility] venlafaxine XR 150 mg 24 hr capsule 3-0 -20 00:00: 00 Yes [facility] venlafaxine XR 150 mg 24 hr capsule 2022-0 -20 00:00: 00 Yes [facility] venlafaxine XR 150 mg 24 hr capsule 2022-0 -20 00:00: 00 Yes [facility] venlafaxine XR 150 mg 24 hr capsule 2022-0 -20 00:00: 00 Yes [facility] venlafaxine XR 150 mg 24 hr capsule 2022-0 -20 00:00: 00 Yes [facility] venlafaxine XR 150 mg 24 hr capsule 2022-0 -20 00:00: 00 Yes [facility] venlafaxine XR 150 mg 24 hr capsule 2022-0 -20 00:00: 00 Yes [facility] venlafaxine XR 150 mg 24 hr capsule 2022-0 -20 00:00: 00 Yes [facility] ALBUTEROL 90 mcg/actuati on inhaler 2022-0 -17 00:00: 00 Yes [id number] INHALE 2 PUFFS BY MOUTH EVERY 6 HOURS NEEDED FOR WHEEZING, SHORTNESS OF BREATH OR BRONCHOSPA SMS. [facility] ALBUTEROL 90 mcg/actuati on inhaler 2022-0 17 00:00: 00 Yes [id number] INHALE 2 PUFFS BY MOUTH EVERY 6 HOURS NEEDED FOR WHEEZING, SHORTNESS OF BREATH OR BRONCHOSPA SMS. [facility] ALBUTEROL 90 mcg/actuati on inhaler 12-17 00:00: 00 Yes [id number] INHALE 2 PUFFS BY MOUTH EVERY 6 HOURS NEEDED FOR WHEEZING, SHORTNESS OF BREATH OR BRONCHOSPA SMS. [facility] travoprost 0.004 % ophthalmic solution 12-17 00:00: 00 Yes INSTILL 1 DROP IN BOTH EYES EVERY NIGHT AT BEDTIME [facility] ALBUTEROL 90 mcg/actuati on inhaler 12-17 00:00: 00 Yes [id number] INHALE 2 PUFFS BY MOUTH EVERY 6 HOURS NEEDED FOR WHEEZING, SHORTNESS OF BREATH OR BRONCHOSPA SMS. [facility] travoprost 0.004 % ophthalmic solution 12-17 00:00: 00 Yes INSTILL 1 DROP IN BOTH EYES EVERY NIGHT AT BEDTIME [facility] ALBUTEROL 90 mcg/actuati on inhaler 12-17 00:00: 00 Yes [id number] INHALE 2 PUFFS BY MOUTH EVERY 6 HOURS NEEDED FOR WHEEZING, SHORTNESS OF BREATH OR BRONCHOSPA SMS. [facility] travoprost 0.004 % ophthalmic solution 12-17 00:00: 00 Yes INSTILL 1 DROP IN BOTH EYES EVERY NIGHT AT BEDTIME [facility] ALBUTEROL 90 mcg/actuati on inhaler 12-17 00:00: 00 Yes [id number] INHALE 2 PUFFS BY MOUTH EVERY 6 HOURS NEEDED FOR WHEEZING, SHORTNESS OF BREATH OR BRONCHOSPA SMS. [facility] travoprost 0.004 % ophthalmic solution 12-17 00:00: 00 Yes INSTILL 1 DROP IN BOTH EYES EVERY NIGHT AT BEDTIME [facility] ALBUTEROL 90 mcg/actuati on inhaler 12-17 00:00: 00 Yes [id number] INHALE 2 PUFFS BY MOUTH EVERY 6 HOURS NEEDED FOR WHEEZING, SHORTNESS OF BREATH OR BRONCHOSPA SMS. [facility] travoprost 0.004 % ophthalmic solution 12-17 00:00: 00 Yes INSTILL 1 DROP IN BOTH EYES EVERY NIGHT AT BEDTIME [facility] ALBUTEROL 90 mcg/actuati on inhaler 12-17 00:00: 00 Yes [id number] INHALE 2 PUFFS BY MOUTH EVERY 6 HOURS NEEDED FOR WHEEZING, SHORTNESS OF BREATH OR BRONCHOSPA SMS. [facility] travoprost 0.004 % ophthalmic solution 12-17 00:00: 00 Yes INSTILL 1 DROP IN BOTH EYES EVERY NIGHT AT BEDTIME [facility] ALBUTEROL 90 mcg/actuati on inhaler 12-17 00:00: 00 Yes [id number] INHALE 2 PUFFS BY MOUTH EVERY 6 HOURS NEEDED FOR WHEEZING, SHORTNESS OF BREATH OR BRONCHOSPA SMS. [facility] travoprost 0.004 % ophthalmic solution 12-17 00:00: 00 Yes INSTILL 1 DROP IN BOTH EYES EVERY NIGHT AT BEDTIME [facility] ALBUTEROL 90 mcg/actuati on inhaler 12-17 00:00: 00 Yes [id number] INHALE 2 PUFFS BY MOUTH EVERY 6 HOURS NEEDED FOR WHEEZING, SHORTNESS OF BREATH OR BRONCHOSPA SMS. [facility] travoprost 0.004 % ophthalmic solution 12-17 00:00: 00 Yes INSTILL 1 DROP IN BOTH EYES EVERY NIGHT AT BEDTIME [facility] ALBUTEROL 90 mcg/actuati on inhaler 12-17 00:00: 00 Yes [id number] INHALE 2 PUFFS BY MOUTH EVERY 6 HOURS NEEDED FOR WHEEZING, SHORTNESS OF BREATH OR BRONCHOSPA SMS. [facility] travoprost 0.004 % ophthalmic solution 12-17 00:00: 00 Yes INSTILL 1 DROP IN BOTH EYES EVERY NIGHT AT BEDTIME [facility] ALBUTEROL 90 mcg/actuati on inhaler 12-17 00:00: 00 Yes [id number] INHALE 2 PUFFS BY MOUTH EVERY 6 HOURS NEEDED FOR WHEEZING, SHORTNESS OF BREATH OR BRONCHOSPA SMS. [facility] travoprost 0.004 % ophthalmic solution 12-17 00:00: 00 Yes INSTILL 1 DROP IN BOTH EYES EVERY NIGHT AT BEDTIME [facility] ALBUTEROL 90 mcg/actuati on inhaler 0 12-17 00:00: 00 Yes [id number] INHALE 2 PUFFS BY MOUTH EVERY 6 HOURS NEEDED FOR WHEEZING, SHORTNESS OF BREATH OR BRONCHOSPA SMS. [facility] travoprost 0.004 % ophthalmic solution 12-17 00:00: 00 Yes INSTILL 1 DROP IN BOTH EYES EVERY NIGHT AT BEDTIME [facility] ALBUTEROL 90 mcg/actuati on inhaler 0 12-17 00:00: 00 Yes [id number] INHALE 2 PUFFS BY MOUTH EVERY 6 HOURS NEEDED FOR WHEEZING, SHORTNESS OF BREATH OR BRONCHOSPA SMS. [facility] travoprost 0.004 % ophthalmic solution 12-17 00:00: 00 Yes INSTILL 1 DROP IN BOTH EYES EVERY NIGHT AT BEDTIME [facility] ALBUTEROL 90 mcg/actuati on inhaler 0 12-17 00:00: 00 Yes [id number] INHALE 2 PUFFS BY MOUTH EVERY 6 HOURS NEEDED FOR WHEEZING, SHORTNESS OF BREATH OR BRONCHOSPA SMS. [facility] travoprost 0.004 % ophthalmic solution 12-17 00:00: 00 Yes INSTILL 1 DROP IN BOTH EYES EVERY NIGHT AT BEDTIME [facility] ALBUTEROL 90 mcg/actuati on inhaler 0 12-17 00:00: 00 Yes [id number] INHALE 2 PUFFS BY MOUTH EVERY 6 HOURS NEEDED FOR WHEEZING, SHORTNESS OF BREATH OR BRONCHOSPA SMS. [facility] travoprost 0.004 % ophthalmic solution 0 12-17 00:00: 00 Yes INSTILL 1 DROP IN BOTH EYES EVERY NIGHT AT BEDTIME [facility] ALBUTEROL 90 mcg/actuati on inhaler 0 12-17 00:00: 00 Yes [id number] INHALE 2 PUFFS BY MOUTH EVERY 6 HOURS NEEDED FOR WHEEZING, SHORTNESS OF BREATH OR BRONCHOSPA SMS. [facility] travoprost 0.004 % ophthalmic solution 0 12-17 00:00: 00 Yes INSTILL 1 DROP IN BOTH EYES EVERY NIGHT AT BEDTIME [facility] ALBUTEROL 90 mcg/actuati on inhaler 0 12-17 00:00: 00 Yes [id number] INHALE 2 PUFFS BY MOUTH EVERY 6 HOURS NEEDED FOR WHEEZING, SHORTNESS OF BREATH OR BRONCHOSPA SMS. [facility] travoprost 0.004 % ophthalmic solution 12-17 00:00: 00 Yes INSTILL 1 DROP IN BOTH EYES EVERY NIGHT AT BEDTIME [facility] ALBUTEROL 90 mcg/actuati on inhaler 0 12-17 00:00: 00 Yes [id number] INHALE 2 PUFFS BY MOUTH EVERY 6 HOURS NEEDED FOR WHEEZING, SHORTNESS OF BREATH OR BRONCHOSPA SMS. [facility] travoprost 0.004 % ophthalmic solution 12-17 00:00: 00 Yes INSTILL 1 DROP IN BOTH EYES EVERY NIGHT AT BEDTIME [facility] ALBUTEROL 90 mcg/actuati on inhaler 0 12-17 00:00: 00 Yes [id number] INHALE 2 PUFFS BY MOUTH EVERY 6 HOURS NEEDED FOR WHEEZING, SHORTNESS OF BREATH OR BRONCHOSPA SMS. [facility] travoprost 0.004 % ophthalmic solution 12-17 00:00: 00 Yes INSTILL 1 DROP IN BOTH EYES EVERY NIGHT AT BEDTIME [facility] ALBUTEROL 90 mcg/actuati on inhaler 0 12-17 00:00: 00 Yes [id number] INHALE 2 PUFFS BY MOUTH EVERY 6 HOURS NEEDED FOR WHEEZING, SHORTNESS OF BREATH OR BRONCHOSPA SMS. [facility] travoprost 0.004 % ophthalmic solution 0 12-17 00:00: 00 Yes INSTILL 1 DROP IN BOTH EYES EVERY NIGHT AT BEDTIME [facility] ALBUTEROL 90 mcg/actuati on inhaler 0 12-17 00:00: 00 Yes [id number] INHALE 2 PUFFS BY MOUTH EVERY 6 HOURS NEEDED FOR WHEEZING, SHORTNESS OF BREATH OR BRONCHOSPA SMS. [facility] travoprost 0.004 % ophthalmic solution 0 12-17 00:00: 00 Yes INSTILL 1 DROP IN BOTH EYES EVERY NIGHT AT BEDTIME [facility] travoprost 0.004 % ophthalmic solution 0 17 00:00: 00 Yes INSTILL 1 DROP IN BOTH EYES EVERY NIGHT AT BEDTIME [facility] travoprost 0.004 % ophthalmic solution 2022-0 17 00:00: 00 Yes INSTILL 1 DROP IN BOTH EYES EVERY NIGHT AT BEDTIME [facility] travoprost 0.004 % ophthalmic solution 0 17 00:00: 00 Yes INSTILL 1 DROP IN BOTH EYES EVERY NIGHT AT BEDTIME [facility] travoprost 0.004 % ophthalmic solution 0 17 00:00: 00 Yes INSTILL 1 DROP IN BOTH EYES EVERY NIGHT AT BEDTIME [facility] travoprost 0.004 % ophthalmic solution 0 12-17 00:00: 00 Yes INSTILL 1 DROP IN BOTH EYES EVERY NIGHT AT BEDTIME [facility] travoprost 0.004 % ophthalmic solution 0 12-17 00:00: 00 Yes INSTILL 1 DROP IN BOTH EYES EVERY NIGHT AT BEDTIME [facility] travoprost 0.004 % ophthalmic solution 0 17 00:00: 00 Yes INSTILL 1 DROP IN BOTH EYES EVERY NIGHT AT BEDTIME [facility] travoprost 0.004 % ophthalmic solution 0 12-17 00:00: 00 Yes INSTILL 1 DROP IN BOTH EYES EVERY NIGHT AT BEDTIME [facility] travoprost 0.004 % ophthalmic solution 0 17 00:00: 00 Yes INSTILL 1 DROP IN BOTH EYES EVERY NIGHT AT BEDTIME [facility] travoprost 0.004 % ophthalmic solution 0 17 00:00: 00 Yes INSTILL 1 DROP IN BOTH EYES EVERY NIGHT AT BEDTIME [facility] travoprost 0.004 % ophthalmic solution 0 17 00:00: 00 Yes INSTILL 1 DROP IN BOTH EYES EVERY NIGHT AT BEDTIME [facility] travoprost 0.004 % ophthalmic solution 2022-0 17 00:00: 00 Yes INSTILL 1 DROP IN BOTH EYES EVERY NIGHT AT BEDTIME [facility] travoprost 0.004 % ophthalmic solution 0 17 00:00: 00 Yes INSTILL 1 DROP IN BOTH EYES EVERY NIGHT AT BEDTIME [facility] travoprost 0.004 % ophthalmic solution 0 17 00:00: 00 Yes INSTILL 1 DROP IN BOTH EYES EVERY NIGHT AT BEDTIME [facility] travoprost 0.004 % ophthalmic solution 0 17 00:00: 00 Yes INSTILL 1 DROP IN BOTH EYES EVERY NIGHT AT BEDTIME [facility] travoprost 0.004 % ophthalmic solution 0 17 00:00: 00 Yes INSTILL 1 DROP IN BOTH EYES EVERY NIGHT AT BEDTIME [facility] travoprost 0.004 % ophthalmic solution 0 12-17 00:00: 00 Yes INSTILL 1 DROP IN BOTH EYES EVERY NIGHT AT BEDTIME [facility] travoprost 0.004 % ophthalmic solution 2022-0 12-17 00:00: 00 Yes INSTILL 1 DROP IN BOTH EYES EVERY NIGHT AT BEDTIME [facility] travoprost 0.004 % ophthalmic solution 2022-0 12-17 00:00: 00 Yes INSTILL 1 DROP IN BOTH EYES EVERY NIGHT AT BEDTIME [facility] travoprost 0.004 % ophthalmic solution 0 12-17 00:00: 00 Yes INSTILL 1 DROP IN BOTH EYES EVERY NIGHT AT BEDTIME [facility] travoprost 0.004 % ophthalmic solution 0 17 00:00: 00 Yes INSTILL 1 DROP IN BOTH EYES EVERY NIGHT AT BEDTIME [facility] travoprost 0.004 % ophthalmic solution 0 17 00:00: 00 Yes INSTILL 1 DROP IN BOTH EYES EVERY NIGHT AT BEDTIME [facility] travoprost 0.004 % ophthalmic solution 2022-0 17 00:00: 00 Yes INSTILL 1 DROP IN BOTH EYES EVERY NIGHT AT BEDTIME [facility] travoprost 0.004 % ophthalmic solution 2022-0 17 00:00: 00 Yes INSTILL 1 DROP IN BOTH EYES EVERY NIGHT AT BEDTIME [facility] travoprost 0.004 % ophthalmic solution 2022-0 17 00:00: 00 Yes INSTILL 1 DROP IN BOTH EYES EVERY NIGHT AT BEDTIME [facility] travoprost 0.004 % ophthalmic solution 0 17 00:00: 00 Yes INSTILL 1 DROP IN BOTH EYES EVERY NIGHT AT BEDTIME [facility] travoprost 0.004 % ophthalmic solution 2022-0 17 00:00: 00 Yes INSTILL 1 DROP IN BOTH EYES EVERY NIGHT AT BEDTIME [facility] travoprost 0.004 % ophthalmic solution 0 17 00:00: 00 Yes INSTILL 1 DROP IN BOTH EYES EVERY NIGHT AT BEDTIME [facility] travoprost 0.004 % ophthalmic solution 0 17 00:00: 00 Yes INSTILL 1 DROP IN BOTH EYES EVERY NIGHT AT BEDTIME [facility] travoprost 0.004 % ophthalmic solution 0 12-17 00:00: 00 Yes INSTILL 1 DROP IN BOTH EYES EVERY NIGHT AT BEDTIME [facility] travoprost 0.004 % ophthalmic solution 0 12-17 00:00: 00 Yes INSTILL 1 DROP IN BOTH EYES EVERY NIGHT AT BEDTIME [facility] travoprost 0.004 % ophthalmic solution 0 17 00:00: 00 Yes INSTILL 1 DROP IN BOTH EYES EVERY NIGHT AT BEDTIME [facility] travoprost 0.004 % ophthalmic solution 0 12-17 00:00: 00 Yes INSTILL 1 DROP IN BOTH EYES EVERY NIGHT AT BEDTIME [facility] travoprost 0.004 % ophthalmic solution 0 17 00:00: 00 Yes INSTILL 1 DROP IN BOTH EYES EVERY NIGHT AT BEDTIME [facility] travoprost 0.004 % ophthalmic solution 0 17 00:00: 00 Yes INSTILL 1 DROP IN BOTH EYES EVERY NIGHT AT BEDTIME [facility] travoprost 0.004 % ophthalmic solution 0 17 00:00: 00 Yes INSTILL 1 DROP IN BOTH EYES EVERY NIGHT AT BEDTIME [facility] travoprost 0.004 % ophthalmic solution 2022-0 17 00:00: 00 Yes INSTILL 1 DROP IN BOTH EYES EVERY NIGHT AT BEDTIME [facility] travoprost 0.004 % ophthalmic solution 0 17 00:00: 00 Yes INSTILL 1 DROP IN BOTH EYES EVERY NIGHT AT BEDTIME [facility] travoprost 0.004 % ophthalmic solution 0 17 00:00: 00 Yes INSTILL 1 DROP IN BOTH EYES EVERY NIGHT AT BEDTIME [facility] travoprost 0.004 % ophthalmic solution 0 17 00:00: 00 Yes INSTILL 1 DROP IN BOTH EYES EVERY NIGHT AT BEDTIME [facility] travoprost 0.004 % ophthalmic solution 0 17 00:00: 00 Yes INSTILL 1 DROP IN BOTH EYES EVERY NIGHT AT BEDTIME [facility] travoprost 0.004 % ophthalmic solution 0 12-17 00:00: 00 Yes INSTILL 1 DROP IN BOTH EYES EVERY NIGHT AT BEDTIME [facility] travoprost 0.004 % ophthalmic solution 2022-0 12-17 00:00: 00 Yes INSTILL 1 DROP IN BOTH EYES EVERY NIGHT AT BEDTIME [facility] travoprost 0.004 % ophthalmic solution 2022-0 12-17 00:00: 00 Yes INSTILL 1 DROP IN BOTH EYES EVERY NIGHT AT BEDTIME [facility] travoprost 0.004 % ophthalmic solution 0 12-17 00:00: 00 Yes INSTILL 1 DROP IN BOTH EYES EVERY NIGHT AT BEDTIME [facility] travoprost 0.004 % ophthalmic solution 0 17 00:00: 00 Yes INSTILL 1 DROP IN BOTH EYES EVERY NIGHT AT BEDTIME [facility] travoprost 0.004 % ophthalmic solution 0 17 00:00: 00 Yes INSTILL 1 DROP IN BOTH EYES EVERY NIGHT AT BEDTIME [facility] travoprost 0.004 % ophthalmic solution 2022-0 17 00:00: 00 Yes INSTILL 1 DROP IN BOTH EYES EVERY NIGHT AT BEDTIME [facility] travoprost 0.004 % ophthalmic solution 2022-0 17 00:00: 00 Yes INSTILL 1 DROP IN BOTH EYES EVERY NIGHT AT BEDTIME [facility] travoprost 0.004 % ophthalmic solution 2022-0 17 00:00: 00 Yes INSTILL 1 DROP IN BOTH EYES EVERY NIGHT AT BEDTIME [facility] travoprost 0.004 % ophthalmic solution 0 17 00:00: 00 Yes INSTILL 1 DROP IN BOTH EYES EVERY NIGHT AT BEDTIME [facility] travoprost 0.004 % ophthalmic solution 2022-0 17 00:00: 00 Yes INSTILL 1 DROP IN BOTH EYES EVERY NIGHT AT BEDTIME [facility] travoprost 0.004 % ophthalmic solution 0 17 00:00: 00 Yes INSTILL 1 DROP IN BOTH EYES EVERY NIGHT AT BEDTIME [facility] travoprost 0.004 % ophthalmic solution 0 17 00:00: 00 Yes INSTILL 1 DROP IN BOTH EYES EVERY NIGHT AT BEDTIME [facility] travoprost 0.004 % ophthalmic solution 0 12-17 00:00: 00 Yes INSTILL 1 DROP IN BOTH EYES EVERY NIGHT AT BEDTIME [facility] travoprost 0.004 % ophthalmic solution 0 12-17 00:00: 00 Yes INSTILL 1 DROP IN BOTH EYES EVERY NIGHT AT BEDTIME [facility] travoprost 0.004 % ophthalmic solution 0 17 00:00: 00 Yes INSTILL 1 DROP IN BOTH EYES EVERY NIGHT AT BEDTIME [facility] travoprost 0.004 % ophthalmic solution 0 12-17 00:00: 00 Yes INSTILL 1 DROP IN BOTH EYES EVERY NIGHT AT BEDTIME [facility] travoprost 0.004 % ophthalmic solution 0 17 00:00: 00 Yes INSTILL 1 DROP IN BOTH EYES EVERY NIGHT AT BEDTIME [facility] travoprost 0.004 % ophthalmic solution 0 17 00:00: 00 Yes INSTILL 1 DROP IN BOTH EYES EVERY NIGHT AT BEDTIME [facility] travoprost 0.004 % ophthalmic solution 0 17 00:00: 00 Yes INSTILL 1 DROP IN BOTH EYES EVERY NIGHT AT BEDTIME [facility] travoprost 0.004 % ophthalmic solution 2022-0 17 00:00: 00 Yes INSTILL 1 DROP IN BOTH EYES EVERY NIGHT AT BEDTIME [facility] travoprost 0.004 % ophthalmic solution 12-17 00:00: 00 Yes INSTILL 1 DROP IN BOTH EYES EVERY NIGHT AT BEDTIME [facility] travoprost 0.004 % ophthalmic solution 0 12-17 00:00: 00 Yes INSTILL 1 DROP IN BOTH EYES EVERY NIGHT AT BEDTIME [facility] travoprost 0.004 % ophthalmic solution 0 12-17 00:00: 00 Yes INSTILL 1 DROP IN BOTH EYES EVERY NIGHT AT BEDTIME [facility] travoprost 0.004 % ophthalmic solution 12-17 00:00: 00 Yes INSTILL 1 DROP IN BOTH EYES EVERY NIGHT AT BEDTIME [facility] travoprost 0.004 % ophthalmic solution 12-17 00:00: 00 Yes INSTILL 1 DROP IN BOTH EYES EVERY NIGHT AT BEDTIME [facility] travoprost 0.004 % ophthalmic solution 0 12-17 00:00: 00 Yes INSTILL 1 DROP IN BOTH EYES EVERY NIGHT AT BEDTIME [facility] travoprost 0.004 % ophthalmic solution 0 12-17 00:00: 00 Yes INSTILL 1 DROP IN BOTH EYES EVERY NIGHT AT BEDTIME [facility] travoprost 0.004 % ophthalmic solution 12-17 00:00: 00 Yes INSTILL 1 DROP IN BOTH EYES EVERY NIGHT AT BEDTIME [facility] ALBUTEROL 90 mcg/actuati on inhaler 12-17 00:00: 00 02-13 00:00 :00 No [id number] INHALE 2 PUFFS BY MOUTH EVERY 6 HOURS NEEDED FOR WHEEZING, SHORTNESS OF BREATH OR BRONCHOSPA SMS. [facility] clonazePAM 1 mg tablet 12-15 00:00: 00 Yes [id number] 1mg Take 1 tablet by mouth in the morning and 1 tablet at noon and 1 tablet in the evening. [facility] clonazePAM 1 mg tablet 12-15 00:00: 00 Yes [id number] 1mg Take 1 tablet by mouth in the morning and 1 tablet at noon and 1 tablet in the evening. [facility] clonazePAM 1 mg tablet 2023-0 5-15 00:00: 00 Yes [id number] 1mg Take 1 tablet by mouth in the morning and 1 tablet at noon and 1 tablet in the evening. [facility] 2022-0 5-15 00:00: 00 Yes [id number] 1mg Take 1 tablet by mouth in the morning and 1 tablet at noon and 1 tablet in the evening. [facility] clonazePAM 1 mg tablet 2022-0 5-15 00:00: 00 Yes [id number] 1mg Take 1 tablet by mouth in the morning and 1 tablet at noon and 1 tablet in the evening. [facility] clonazePAM 1 mg tablet 3-0 5-15 00:00: 00 Yes [id number] 1mg Take 1 tablet by mouth in the morning and 1 tablet at noon and 1 tablet in the evening. [facility] clonazePAM 1 mg tablet 2022-0 5-15 00:00: 00 Yes [id number] 1mg Take 1 tablet by mouth in the morning and 1 tablet at noon and 1 tablet in the evening. [facility] clonazePAM 1 mg tablet 2022-0 5-15 00:00: 00 Yes [id number] 1mg Take 1 tablet by mouth in the morning and 1 tablet at noon and 1 tablet in the evening. [facility] clonazePAM 1 mg tablet 2022-0 5-15 00:00: 00 Yes [id number] 1mg Take 1 tablet by mouth in the morning and 1 tablet at noon and 1 tablet in the evening. [facility] clonazePAM 1 mg tablet 2022-0 5-15 00:00: 00 Yes [id number] 1mg Take 1 tablet by mouth in the morning and 1 tablet at noon and 1 tablet in the evening. [facility] clonazePAM 1 mg tablet 3-0 5-15 00:00: 00 Yes [id number] 1mg Take 1 tablet by mouth in the morning and 1 tablet at noon and 1 tablet in the evening. [facility] clonazePAM 1 mg tablet 3-0 5-15 00:00: 00 Yes [id number] 1mg Take 1 tablet by mouth in the morning and 1 tablet at noon and 1 tablet in the evening. [facility] clonazePAM 1 mg tablet 2023-0 5-15 00:00: 00 Yes [id number] 1mg Take 1 tablet by mouth in the morning and 1 tablet at noon and 1 tablet in the evening. [facility] mg tablet 2023-0 5-15 00:00: 00 Yes [id number] 1mg Take 1 tablet by mouth in the morning and 1 tablet at noon and 1 tablet in the evening. [facility] clonazePAM 1 mg tablet 2023-0 5-15 00:00: 00 Yes [id number] 1mg Take 1 tablet by mouth in the morning and 1 tablet at noon and 1 tablet in the evening. [facility] clonazePAM 1 mg tablet 3-0 5-15 00:00: 00 Yes [id number] 1mg Take 1 tablet by mouth in the morning and 1 tablet at noon and 1 tablet in the evening. [facility] clonazePAM 1 mg tablet 2023-0 5-15 00:00: 00 Yes [id number] 1mg Take 1 tablet by mouth in the morning and 1 tablet at noon and 1 tablet in the evening. [facility] clonazePAM 1 mg tablet 3-0 5-15 00:00: 00 Yes [id number] 1mg Take 1 tablet by mouth in the morning and 1 tablet at noon and 1 tablet in the evening. [facility] clonazePAM 1 mg tablet 2023-0 5-15 00:00: 00 Yes [id number] 1mg Take 1 tablet by mouth in the morning and 1 tablet at noon and 1 tablet in the evening. [facility] clonazePAM 1 mg tablet 2023-0 5-15 00:00: 00 Yes [id number] 1mg Take 1 tablet by mouth in the morning and 1 tablet at noon and 1 tablet in the evening. [facility] clonazePAM 1 mg tablet 2023-0 5-15 00:00: 00 Yes [id number] 1mg Take 1 tablet by mouth in the morning and 1 tablet at noon and 1 tablet in the evening. [facility] clonazePAM 1 mg tablet 2023-0 5-15 00:00: 00 Yes [id number] 1mg Take 1 tablet by mouth in the morning and 1 tablet at noon and 1 tablet in the evening. [facility] clonazePAM 1 mg tablet 2022-0 5-15 00:00: 00 Yes [id number] 1mg Take 1 tablet by mouth in the morning and 1 tablet at noon and 1 tablet in the evening. [facility] clonazePAM 1 mg tablet 2022-0 5-15 00:00: 00 02-11 00:00 :00 No [id number] 1mg Take 1 tablet by mouth in the morning and 1 tablet at noon and 1 tablet in the evening. [facility] clonazePAM 1 mg tablet 2022-0 -15 00:00: 00 02-11 00:00 :00 No [id number] 1mg Take 1 tablet by mouth in the morning and 1 tablet at noon and 1 tablet in the evening. [facility] metoprolol tartrate 25 mg tablet 2022-0 5-10 00:00: 00 Yes [id number] 25mg Take 1 tablet by mouth in the morning and 1 tablet in the evening. [facility] metoprolol tartrate 25 mg tablet 2022-0 5-10 00:00: 00 Yes [id number] 25mg Take 1 tablet by mouth in the morning and 1 tablet in the evening. [facility] metoprolol tartrate 25 mg tablet 2022-0 5-10 00:00: 00 Yes [id number] 25mg Take 1 tablet by mouth in the morning and 1 tablet in the evening. [facility] metoprolol tartrate 25 mg tablet 2022-0 5-10 00:00: 00 Yes [id number] 25mg Take 1 tablet by mouth in the morning and 1 tablet in the evening. [facility] metoprolol tartrate 25 mg tablet 3-0 5-10 00:00: 00 Yes [id number] 25mg Take 1 tablet by mouth in the morning and 1 tablet in the evening. [facility] metoprolol tartrate 25 mg tablet 2022-0 5-10 00:00: 00 Yes [id number] 25mg Take 1 tablet by mouth in the morning and 1 tablet in the evening. [facility] metoprolol tartrate 25 mg tablet 3-0 5-10 00:00: 00 Yes [id number] 25mg Take 1 tablet by mouth in the morning and 1 tablet in the evening. [facility] metoprolol tartrate 25 mg tablet 3-0 5-10 00:00: 00 Yes [id number] 25mg Take 1 tablet by mouth in the morning and 1 tablet in the evening. [facility] metoprolol tartrate 25 mg tablet 3-0 5-10 00:00: 00 Yes [id number] 25mg Take 1 tablet by mouth in the morning and 1 tablet in the evening. [facility] metoprolol tartrate 25 mg tablet 3-0 5-10 00:00: 00 Yes [id number] 25mg Take 1 tablet by mouth in the morning and 1 tablet in the evening. [facility] metoprolol tartrate 25 mg tablet 3-0 5-10 00:00: 00 Yes [id number] 25mg Take 1 tablet by mouth in the morning and 1 tablet in the evening. [facility] metoprolol tartrate 25 mg tablet 3-0 5-10 00:00: 00 Yes [id number] 25mg Take 1 tablet by mouth in the morning and 1 tablet in the evening. [facility] metoprolol tartrate 25 mg tablet 3-0 5-10 00:00: 00 Yes [id number] 25mg Take 1 tablet by mouth in the morning and 1 tablet in the evening. [facility] metoprolol tartrate 25 mg tablet 3-0 5-10 00:00: 00 Yes [id number] 25mg Take 1 tablet by mouth in the morning and 1 tablet in the evening. [facility] metoprolol tartrate 25 mg tablet 3-0 5-10 00:00: 00 Yes [id number] 25mg Take 1 tablet by mouth in the morning and 1 tablet in the evening. [facility] metoprolol tartrate 25 mg tablet 3-0 5-10 00:00: 00 Yes [id number] 25mg Take 1 tablet by mouth in the morning and 1 tablet in the evening. [facility] metoprolol tartrate 25 mg tablet 3-0 5-10 00:00: 00 Yes [id number] 25mg Take 1 tablet by mouth in the morning and 1 tablet in the evening. [facility] metoprolol tartrate 25 mg tablet 3-0 5-10 00:00: 00 Yes [id number] 25mg Take 1 tablet by mouth in the morning and 1 tablet in the evening. [facility] metoprolol tartrate 25 mg tablet 2023-0 5-10 00:00: 00 Yes [id number] 25mg Take 1 tablet by mouth in the morning and 1 tablet in the evening. [facility] metoprolol tartrate 25 mg tablet 3-0 5-10 00:00: 00 Yes [id number] 25mg Take 1 tablet by mouth in the morning and 1 tablet in the evening. [facility] metoprolol tartrate 25 mg tablet 3-0 5-10 00:00: 00 Yes [id number] 25mg Take 1 tablet by mouth in the morning and 1 tablet in the evening. [facility] metoprolol tartrate 25 mg tablet 3-0 5-10 00:00: 00 Yes [id number] 25mg Take 1 tablet by mouth in the morning and 1 tablet in the evening. [facility] metoprolol tartrate 25 mg tablet 3-0 5-10 00:00: 00 Yes [id number] 25mg Take 1 tablet by mouth in the morning and 1 tablet in the evening. [facility] metoprolol tartrate 25 mg tablet 3-0 5-10 00:00: 00 Yes [id number] 25mg Take 1 tablet by mouth in the morning and 1 tablet in the evening. [facility] metoprolol tartrate 25 mg tablet 3-0 5-10 00:00: 00 Yes [id number] 25mg Take 1 tablet by mouth in the morning and 1 tablet in the evening. [facility] metoprolol tartrate 25 mg tablet 3-0 5-10 00:00: 00 Yes [id number] 25mg Take 1 tablet by mouth in the morning and 1 tablet in the evening. [facility] metoprolol tartrate 25 mg tablet 2023-0 5-10 00:00: 00 Yes [id number] 25mg Take 1 tablet by mouth in the morning and 1 tablet in the evening. [facility] metoprolol tartrate 25 mg tablet 3-0 5-10 00:00: 00 Yes [id number] 25mg Take 1 tablet by mouth in the morning and 1 tablet in the evening. [facility] metoprolol tartrate 25 mg tablet 3-0 5-10 00:00: 00 Yes [id number] 25mg Take 1 tablet by mouth in the morning and 1 tablet in the evening. [facility] metoprolol tartrate 25 mg tablet 3-0 5-10 00:00: 00 Yes [id number] 25mg Take 1 tablet by mouth in the morning and 1 tablet in the evening. [facility] metoprolol tartrate 25 mg tablet 2022-0 5-10 00:00: 00 Yes [id number] 25mg Take 1 tablet by mouth in the morning and 1 tablet in the evening. [facility] metoprolol tartrate 25 mg tablet 2022-0 5-10 00:00: 00 Yes [id number] 25mg Take 1 tablet by mouth in the morning and 1 tablet in the evening. [facility] metoprolol tartrate 25 mg tablet 3-0 5-10 00:00: 00 Yes [id number] 25mg Take 1 tablet by mouth in the morning and 1 tablet in the evening. [facility] metoprolol tartrate 25 mg tablet 2022-0 5-10 00:00: 00 Yes [id number] 25mg Take 1 tablet by mouth in the morning and 1 tablet in the evening. [facility] metoprolol tartrate 25 mg tablet 3-0 5-10 00:00: 00 Yes [id number] 25mg Take 1 tablet by mouth in the morning and 1 tablet in the evening. [facility] metoprolol tartrate 25 mg tablet 3-0 5-10 00:00: 00 Yes [id number] 25mg Take 1 tablet by mouth in the morning and 1 tablet in the evening. [facility] metoprolol tartrate 25 mg tablet 3-0 5-10 00:00: 00 Yes [id number] 25mg Take 1 tablet by mouth in the morning and 1 tablet in the evening. [facility] metoprolol tartrate 25 mg tablet 2023-0 5-10 00:00: 00 Yes [id number] 25mg Take 1 tablet by mouth in the morning and 1 tablet in the evening. [facility] metoprolol tartrate 25 mg tablet 3-0 5-10 00:00: 00 Yes [id number] 25mg Take 1 tablet by mouth in the morning and 1 tablet in the evening. [facility] metoprolol tartrate 25 mg tablet 3-0 5-10 00:00: 00 Yes [id number] 25mg Take 1 tablet by mouth in the morning and 1 tablet in the evening. [facility] metoprolol tartrate 25 mg tablet 3-0 5-10 00:00: 00 Yes [id number] 25mg Take 1 tablet by mouth in the morning and 1 tablet in the evening. [facility] metoprolol tartrate 25 mg tablet 3-0 5-10 00:00: 00 Yes [id number] 25mg Take 1 tablet by mouth in the morning and 1 tablet in the evening. [facility] metoprolol tartrate 25 mg tablet 3-0 5-10 00:00: 00 Yes [id number] 25mg Take 1 tablet by mouth in the morning and 1 tablet in the evening. [facility] metoprolol tartrate 25 mg tablet 3-0 5-10 00:00: 00 Yes [id number] 25mg Take 1 tablet by mouth in the morning and 1 tablet in the evening. [facility] metoprolol tartrate 25 mg tablet 3-0 5-10 00:00: 00 Yes [id number] 25mg Take 1 tablet by mouth in the morning and 1 tablet in the evening. [facility] metoprolol tartrate 25 mg tablet 3-0 5-10 00:00: 00 Yes [id number] 25mg Take 1 tablet by mouth in the morning and 1 tablet in the evening. [facility] metoprolol tartrate 25 mg tablet 3-0 5-10 00:00: 00 Yes [id number] 25mg Take 1 tablet by mouth in the morning and 1 tablet in the evening. [facility] metoprolol tartrate 25 mg tablet 3-0 5-10 00:00: 00 Yes [id number] 25mg Take 1 tablet by mouth in the morning and 1 tablet in the evening. [facility] metoprolol tartrate 25 mg tablet 3-0 5-10 00:00: 00 Yes [id number] 25mg Take 1 tablet by mouth in the morning and 1 tablet in the evening. [facility] metoprolol tartrate 25 mg tablet 3-0 5-10 00:00: 00 Yes [id number] 25mg Take 1 tablet by mouth in the morning and 1 tablet in the evening. [facility] metoprolol tartrate 25 mg tablet 3-0 5-10 00:00: 00 Yes [id number] 25mg Take 1 tablet by mouth in the morning and 1 tablet in the evening. [facility] metoprolol tartrate 25 mg tablet 3-0 5-10 00:00: 00 Yes [id number] 25mg Take 1 tablet by mouth in the morning and 1 tablet in the evening. [facility] metoprolol tartrate 25 mg tablet 3-0 5-10 00:00: 00 Yes [id number] 25mg Take 1 tablet by mouth in the morning and 1 tablet in the evening. [facility] metoprolol tartrate 25 mg tablet 3-0 5-10 00:00: 00 Yes [id number] 25mg Take 1 tablet by mouth in the morning and 1 tablet in the evening. [facility] metoprolol tartrate 25 mg tablet 3-0 5-10 00:00: 00 Yes [id number] 25mg Take 1 tablet by mouth in the morning and 1 tablet in the evening. [facility] metoprolol tartrate 25 mg tablet 3-0 5-10 00:00: 00 Yes [id number] 25mg Take 1 tablet by mouth in the morning and 1 tablet in the evening. [facility] metoprolol tartrate 25 mg tablet 3-0 5-10 00:00: 00 Yes [id number] 25mg Take 1 tablet by mouth in the morning and 1 tablet in the evening. [facility] metoprolol tartrate 25 mg tablet 3-0 5-10 00:00: 00 Yes [id number] 25mg Take 1 tablet by mouth in the morning and 1 tablet in the evening. [facility] metoprolol tartrate 25 mg tablet 3-0 5-10 00:00: 00 Yes [id number] 25mg Take 1 tablet by mouth in the morning and 1 tablet in the evening. [facility] metoprolol tartrate 25 mg tablet 3-0 5-10 00:00: 00 Yes [id number] 25mg Take 1 tablet by mouth in the morning and 1 tablet in the evening. [facility] metoprolol tartrate 25 mg tablet 3-0 5-10 00:00: 00 Yes [id number] 25mg Take 1 tablet by mouth in the morning and 1 tablet in the evening. [facility] metoprolol tartrate 25 mg tablet 3-0 5-10 00:00: 00 Yes [id number] 25mg Take 1 tablet by mouth in the morning and 1 tablet in the evening. [facility] metoprolol tartrate 25 mg tablet 3-0 5-10 00:00: 00 Yes [id number] 25mg Take 1 tablet by mouth in the morning and 1 tablet in the evening. [facility] metoprolol tartrate 25 mg tablet 3-0 5-10 00:00: 00 Yes [id number] 25mg Take 1 tablet by mouth in the morning and 1 tablet in the evening. [facility] metoprolol tartrate 25 mg tablet 3-0 5-10 00:00: 00 Yes [id number] 25mg Take 1 tablet by mouth in the morning and 1 tablet in the evening. [facility] metoprolol tartrate 25 mg tablet 3-0 5-10 00:00: 00 Yes [id number] 25mg Take 1 tablet by mouth in the morning and 1 tablet in the evening. [facility] metoprolol tartrate 25 mg tablet 3-0 5-10 00:00: 00 Yes [id number] 25mg Take 1 tablet by mouth in the morning and 1 tablet in the evening. [facility] metoprolol tartrate 25 mg tablet 3-0 5-10 00:00: 00 Yes [id number] 25mg Take 1 tablet by mouth in the morning and 1 tablet in the evening. [facility] metoprolol tartrate 25 mg tablet 2023-0 5-10 00:00: 00 Yes [id number] 25mg Take 1 tablet by mouth in the morning and 1 tablet in the evening. [facility] metoprolol tartrate 25 mg tablet 2023-0 5-10 00:00: 00 Yes [id number] 25mg Take 1 tablet by mouth in the morning and 1 tablet in the evening. [facility] metoprolol tartrate 25 mg tablet 3-0 5-10 00:00: 00 Yes [id number] 25mg Take 1 tablet by mouth in the morning and 1 tablet in the evening. [facility] metoprolol tartrate 25 mg tablet 3-0 5-10 00:00: 00 Yes [id number] 25mg Take 1 tablet by mouth in the morning and 1 tablet in the evening. [facility] metoprolol tartrate 25 mg tablet 3-0 5-10 00:00: 00 Yes [id number] 25mg Take 1 tablet by mouth in the morning and 1 tablet in the evening. [facility] metoprolol tartrate 25 mg tablet 3-0 5-10 00:00: 00 Yes [id number] 25mg Take 1 tablet by mouth in the morning and 1 tablet in the evening. [facility] metoprolol tartrate 25 mg tablet 3-0 5-10 00:00: 00 Yes [id number] 25mg Take 1 tablet by mouth in the morning and 1 tablet in the evening. [facility] metoprolol tartrate 25 mg tablet 3-0 5-10 00:00: 00 Yes [id number] 25mg Take 1 tablet by mouth in the morning and 1 tablet in the evening. [facility] metoprolol tartrate 25 mg tablet 3-0 5-10 00:00: 00 Yes [id number] 25mg Take 1 tablet by mouth in the morning and 1 tablet in the evening. [facility] metoprolol tartrate 25 mg tablet 2023-0 5-10 00:00: 00 Yes [id number] 25mg Take 1 tablet by mouth in the morning and 1 tablet in the evening. [facility] metoprolol tartrate 25 mg tablet 2022-0 5-10 00:00: 00 Yes [id number] 25mg Take 1 tablet by mouth in the morning and 1 tablet in the evening. [facility] metoprolol tartrate 25 mg tablet 2022-0 5-10 00:00: 00 Yes [id number] 25mg Take 1 tablet by mouth in the morning and 1 tablet in the evening. [facility] metoprolol tartrate 25 mg tablet 2022-0 5-10 00:00: 00 Yes [id number] 25mg Take 1 tablet by mouth in the morning and 1 tablet in the evening. [facility] metoprolol tartrate 25 mg tablet 2022-0 5-10 00:00: 00 Yes [id number] 25mg Take 1 tablet by mouth in the morning and 1 tablet in the evening. [facility] metoprolol tartrate 25 mg tablet 2022-0 5-10 00:00: 00 Yes [id number] 25mg Take 1 tablet by mouth in the morning and 1 tablet in the evening. [facility] metoprolol tartrate 25 mg tablet 2022-0 5-10 00:00: 00 Yes [id number] 25mg Take 1 tablet by mouth in the morning and 1 tablet in the evening. [facility] metoprolol tartrate 25 mg tablet 2022-0 5-10 00:00: 00 Yes [id number] 25mg Take 1 tablet by mouth in the morning and 1 tablet in the evening. [facility] metoprolol tartrate 25 mg tablet 2022-0 5-10 00:00: 00 Yes [id number] 25mg Take 1 tablet by mouth in the morning and 1 tablet in the evening. [facility] metoprolol tartrate 25 mg tablet 3-0 5-10 00:00: 00 Yes [id number] 25mg Take 1 tablet by mouth in the morning and 1 tablet in the evening. [facility] metoprolol tartrate 25 mg tablet 3-0 5-10 00:00: 00 Yes [id number] 25mg Take 1 tablet by mouth in the morning and 1 tablet in the evening. [facility] metoprolol tartrate 25 mg tablet 2023-0 5-10 00:00: 00 Yes [id number] 25mg Take 1 tablet by mouth in the morning and 1 tablet in the evening. [facility] metoprolol tartrate 25 mg tablet 3-0 5-10 00:00: 00 Yes [id number] 25mg Take 1 tablet by mouth in the morning and 1 tablet in the evening. [facility] metoprolol tartrate 25 mg tablet 3-0 5-10 00:00: 00 Yes [id number] 25mg Take 1 tablet by mouth in the morning and 1 tablet in the evening. [facility] metoprolol tartrate 25 mg tablet 3-0 5-10 00:00: 00 Yes [id number] 25mg Take 1 tablet by mouth in the morning and 1 tablet in the evening. [facility] metoprolol tartrate 25 mg tablet 3-0 5-10 00:00: 00 Yes [id number] 25mg Take 1 tablet by mouth in the morning and 1 tablet in the evening. [facility] metoprolol tartrate 25 mg tablet 3-0 5-10 00:00: 00 Yes [id number] 25mg Take 1 tablet by mouth in the morning and 1 tablet in the evening. [facility] metoprolol tartrate 25 mg tablet 3-0 5-10 00:00: 00 Yes [id number] 25mg Take 1 tablet by mouth in the morning and 1 tablet in the evening. [facility] metoprolol tartrate 25 mg tablet 3-0 5-10 00:00: 00 Yes [id number] 25mg Take 1 tablet by mouth in the morning and 1 tablet in the evening. [facility] metoprolol tartrate 25 mg tablet 3-0 5-10 00:00: 00 Yes [id number] 25mg Take 1 tablet by mouth in the morning and 1 tablet in the evening. [facility] TIZANIDINE 4 mg tablet 2022-0 -08 00:00: 00 Yes [id number] TAKE 1 TABLET BY MOUTH EVERY 8 HOURS NEEDED [facility] TIZANIDINE 4 mg tablet 3-0 -08 00:00: 00 Yes [id number] TAKE 1 TABLET BY MOUTH EVERY 8 HOURS NEEDED [facility] TIZANIDINE 4 mg tablet 3-0 5-08 00:00: 00 Yes [id number] TAKE 1 TABLET BY MOUTH EVERY 8 HOURS NEEDED [facility] TIZANIDINE 4 mg tablet 2022-0 5-08 00:00: 00 Yes [id number] TAKE 1 TABLET BY MOUTH EVERY 8 HOURS NEEDED [facility] TIZANIDINE 4 mg tablet 2022-0 -08 00:00: 00 Yes [id number] TAKE 1 TABLET BY MOUTH EVERY 8 HOURS NEEDED [facility] TIZANIDINE 4 mg tablet 2022-0 -08 00:00: 00 Yes [id number] TAKE 1 TABLE[facility] -08 00:00: 00 Yes [id number] TAKE 1 TABLET BY MOUTH EVERY 8 HOURS NEEDED [facility] TIZANIDINE 4 mg tablet 2022-0 -08 00:00: 00 Yes [id number] TAKE 1 TABLET BY MOUTH EVERY 8 HOURS NEEDED [facility] TIZANIDINE 4 mg tablet 2022-0 -08 00:00: 00 Yes [id number] TAKE 1 TABLET BY MOUTH EVERY 8 HOURS [facility] 2022-0 -08 00:00: 00 Yes [id number] TAKE 1 TABLET BY MOUTH EVERY 8 HOURS NEEDED [facility] TIZANIDINE 4 mg tablet 2022-0 -08 00:00: 00 Yes [id number] TAKE 1 TABLET BY MOUTH EVERY 8 HOURS NEEDED [facility] TIZANIDINE 4 mg tablet 3-0 -08 00:00: 00 Yes [id number] TAKE 1 TABLET BY MOUTH EVERY 8 HOURS NEEDED [facility] TIZANIDINE 4 mg tablet 3-0 5-08 00:00: 00 Yes [id number] TAKE 1 TABLET BY MOUTH EVERY 8 HOURS NEEDED [facility] TIZANIDINE 4 mg tablet 2022-0 5-08 00:00: 00 Yes [id number] TAKE 1 TABLET BY MOUTH EVERY 8 HOURS NEEDED [facility] TIZANIDINE 4 mg tablet 2022-0 -08 00:00: 00 Yes [id number] TAKE 1 TABLET BY MOUTH EVERY 8 HOURS NEEDED [facility] TIZANIDINE 4 mg tablet 2022-0 5-08 00:00: 00 Yes [id number] TAKE 1 TABLET BY MOUTH EVERY [facility]RS [facility] 2022-0 -08 00:00: 00 Yes [id number] TAKE 1 TABLET BY MOUTH EVERY 8 HOURS NEEDED [facility] TIZANIDINE 4 mg tablet 2022-0 -08 00:00: 00 Yes [id number] TAKE 1 TABLET BY MOUTH EVERY 8 HOURS [facility]ED [facility] T[facility] tablet 2022-0 -08 00:00: 00 Yes [id number] TAKE 1 TABLET BY MOUTH EVERY 8 HOURS NEEDED [facility] TIZANIDINE 4 mg tablet 2022-0 -08 00:00: 00 Yes [id number] TAKE 1 TABLET BY MOUTH EVERY 8 HOURS NEEDED [facility] TIZANIDINE 4 mg tablet 2022-0 -08 00:00: 00 Yes [id number] TAKE 1 TABLET BY MOUTH EVERY 8 HOURS NEEDED [facility] TIZANID[facility] 4 mg tablet 2022-0 -08 00:00: 00 Yes [id number] TAKE 1 TABLET BY MOUTH EVERY 8 HOURS NEEDED [facility] TIZANIDINE 4 mg tablet 2022-0 -08 00:00: 00 Yes [id number] TAKE 1 TABLET BY MOUTH EVERY 8 HOURS NEEDED [facility] TIZANIDINE 4 mg tablet 2022-0 -08 00:00: 00 Yes [id number] TAKE 1 TABLET BY MOUTH EVERY 8 HOURS NEEDED [facility] TIZANIDINE 4 mg tablet 3-0 -08 00:00: 00 Yes [id number] TAKE 1 TABLET BY MOUTH EVERY 8 HOURS NEEDED [facility] TIZANIDINE 4 mg tablet 3-0 5-08 00:00: 00 Yes [id number] TAKE 1 TABLET BY MOUTH EVERY 8 HOURS NEEDED [facility] TIZANIDINE 4 mg tablet 2022-0 -08 00:00: 00 Yes [id number] TAKE 1 TABLET BY MOUTH EVERY 8 HOURS NEEDED [facility] TIZANIDINE 4 mg tablet 2022-0 5-08 00:00: 00 Yes [id number] TAKE 1 TABLET BY MOUTH EVERY 8 HOURS [facility]ED [facility] T[facility] tablet 2022-0 5-08 00:00: 00 Yes [id number] TAKE 1 TABLET BY MOUTH EVERY 8 HOURS [facility]ED [facility] T[facility] mg tablet 2022-0 -08 00:00: 00 Yes [id number] TAKE 1 TABLET BY MOUTH EVERY 8 HOURS NEEDED [facility] TIZANIDINE 4 mg tablet 2022-0 -08 00:00: 00 Yes [id number] TAKE 1 TABLET BY MOUTH EVERY 8 HOURS NEEDED [facility] TIZANIDINE 4 mg tablet 2022-0 -08 00:00: 00 Yes [id number] TAKE 1 TABLET BY MOUTH EVERY 8 HOURS NEEDED [facility] TIZANIDINE 4 mg tablet 2022-0 08 00:00: 00 Yes [id number] TAKE 1 TABLET BY MOUTH EVERY 8 HOURS NEEDED [facility] TIZANIDINE 4 mg tablet 2022-0 08 00:00: 00 02-23 00:00 :00 No [id number] TAKE 1 TABLET BY MOUTH EVERY 8 HOURS NEEDED [facility] traMADoL 50 mg tablet 2022-0 -08 00:00: 00 12-16 04:59 :00 No [id number] 50mg Take 1 tablet by mouth every 6 (six) hours as needed for Pain (scale 4-6) for up to 7 days. Indication s: chronic pain [facility] traMADoL 50 mg tablet 2022-0 -08 00:00: 00 12-16 04:59 :00 No [id number] 50mg Take 1 tablet by mouth every 6 (six) hours as needed for Pain (scale 4-6) for up to 7 days. Indication s: chronic pain [facility] traMADoL 50 mg tablet 2022-0 5-08 00:00: 00 12-16 04:59 :00 No [id number] 50mg Take 1 tablet by mouth every 6 (six) hours as needed for Pain (scale 4-6) for up to 7 days. Indication s: chronic pain [facility] traMADoL 50 mg tablet 12-08 00:00: 00 12-16 04:59 :00 No [id number] 50mg Take 1 tablet by mouth every 6 (six) hours as needed for Pain (scale 4-6) for up to 7 days. Indication s: chronic pain [facility] traMADoL 50 mg tablet 12-08 00:00: 00 12-16 04:59 :00 No [id number] 50mg Take 1 tablet by mouth every 6 (six) hours as needed for Pain (scale 4-6) for up to 7 days. Indication s: chronic pain [facility] metFORMIN 850 mg tablet 12-06 00:00: 00 Yes [id number] TAKE 1 TABLET BY MOUTH THREE TIMES DAILY [facility] metFORMIN 850 mg tablet 0 12-06 00:00: 00 Yes [id number] TAKE 1 TABLET BY MOUTH THREE TIMES DAILY [facility] metFORMIN 850 mg tablet 0 12-06 00:00: 00 Yes [id number] TAKE 1 TABLET BY MOUTH THREE TIMES DAILY [facility] metFORMIN 850 mg tablet 0 12-06 00:00: 00 Yes [id number] TAKE 1 TABLET BY MOUTH THREE TIMES DAILY [facility] metFORMIN 850 mg tablet 0 12-06 00:00: 00 Yes [id number] TAKE 1 TABLET BY MOUTH THREE TIMES DAILY [facility] metFORMIN 850 mg tablet 0 12-06 00:00: 00 Yes [id number] TAKE 1 TABLET BY MOUTH THREE TIMES DAILY [facility] metFORMIN 850 mg tablet 0 12-06 00:00: 00 Yes [id number] TAKE 1 TABLET BY MOUTH THREE TIMES DAILY [facility] metFORMIN 850 mg tablet 0 12-06 00:00: 00 Yes [id number] TAKE 1 TABLET BY MOUTH THREE TIMES DAILY [facility] metFORMIN 850 mg tablet 0 12-06 00:00: 00 Yes [id number] TAKE 1 TABLET BY MOUTH THREE TIMES DAILY [facility] metFORMIN 850 mg tablet 2022-0 12-06 00:00: 00 Yes [id number] TAKE 1 TABLET BY MOUTH THREE TIMES DAILY [facility] metFORMIN 850 mg tablet 0 12-06 00:00: 00 Yes [id number] TAKE 1 TABLET BY MOUTH THREE TIMES DA[facility] 850 mg tablet 12-06 00:00: 00 Yes [id number] TAKE 1 TABLET BY MOUTH THREE TIMES DAILY [facility] met[facility] 850 mg tablet 12-06 00:00: 00 Yes [id number] TAKE 1 TABLET BY MOUTH THREE TIMES DAILY [facility] met[facility] 850 mg tablet 12-06 00:00: 00 Yes [id number] TAKE 1 TABLET BY MOUTH THREE TIMES DAILY [facility] metFORMIN 850 mg tablet 12-06 00:00: 00 Yes [id number] TAKE 1 TABLET BY MOUTH THREE TIMES DAILY [facility] metFORMIN 850 mg tablet 12-06 00:00: 00 Yes [id number] TAKE 1 TABLET BY MOUTH THREE TIMES DAILY [facility] metFORMIN 850 mg tablet 12-06 00:00: 00 Yes [id number] TAKE 1 TABLET BY MOUTH THREE TIMES DAILY [facility] metFORMIN 850 mg tablet 12-06 00:00: 00 Yes [id number] TAKE 1 TABLET BY MOUTH THREE TIMES DAILY [facility] metFORMIN 850 mg tablet 12-06 00:00: 00 Yes [id number] TAKE 1 TABLET BY MOUTH THREE TIMES DAILY [facility] metFORMIN 850 mg tablet 12-06 00:00: 00 Yes [id number] TAKE 1 TABLET BY MOUTH THREE TIMES DAILY [facility] metFORMIN 850 mg tablet 12-06 00:00: 00 Yes [id number] TAKE 1 TABLET BY MOUTH THREE TIMES DAILY [facility] metFORMIN 850 mg tablet 12-06 00:00: 00 Yes [id number] TAKE 1 TABLET BY MOUTH THREE TIMES DAILY [facility] metFORMIN 850 mg tablet 12-06 00:00: 00 Yes [id number] TAKE 1 TABLET BY MOUTH THREE TIMES [facility] 850 mg tablet 12-06 00:00: 00 Yes [id number] TAKE 1 TABLET BY MOUTH THREE TIMES DAILY [facility] metFORMIN 850 mg tablet 12-06 00:00: 00 Yes [id number] TAKE 1 TABLET BY MOUTH THREE TIMES DAILY [facility] metFORMIN 850 mg tablet 12-06 00:00: 00 Yes [id number] TAKE 1 TABLET BY MOUTH THREE TIMES DAILY [facility] metFORMIN 850 mg tablet 12-06 00:00: 00 Yes [id number] TAKE 1 TABLET BY MOUTH THREE TIMES DAILY [facility] metFORMIN 850 mg tablet 12-06 00:00: 00 Yes [id number] TAKE 1 TABLET BY MOUTH THREE TIMES DAILY [facility] metFORMIN 850 mg tablet 12-06 00:00: 00 Yes [id number] TAKE 1 TABLET BY MOUTH THREE TIMES DAILY [facility] metFORMIN 850 mg tablet 12-06 00:00: 00 Yes [id number] TAKE 1 TABLET BY MOUTH THREE TIMES DAILY [facility] metFORMIN 850 mg tablet 12-06 00:00: 00 Yes [id number] TAKE 1 TABLET BY MOUTH THREE TIMES DAILY [facility] metFORMIN 850 mg tablet 12-06 00:00: 00 Yes [id number] TAKE 1 TABLET BY MOUTH THREE TIMES DAILY [facility] metFORMIN 850 mg tablet 12-06 00:00: 00 Yes [id number] TAKE 1 TABLET BY MOUTH THREE TIMES DAILY [facility] metFORMIN 850 mg tablet 12-06 00:00: 00 02-20 00:00 :00 No [id number] TAKE 1 TABLET BY MOUTH THREE TIMES DAILY [facility] metFORMIN 850 mg tablet 12-06 00:00: 00 02-20 00:00 :00 No [id number] TAKE 1 TABLET BY MOUTH THREE TIMES DAILY [facility] lisinopriL 20 mg tablet 11-27 00:00: 00 Yes [id number] 20mg Take 1 tablet by mouth in the morning. [facility] carvediloL 6.25 mg tablet 2023-0 4-27 00:00: 00 Yes [id number] 6.25mg Take 1 tablet by mouth in the morning and 1 tablet in the evening. [facility] amoxicillin 500 mg tablet 2022-0 11-27 00:00: 00 Yes [id number] 500mg Take 1 tablet by mouth in the morning and 1 tablet at noon and 1 tablet in the evening. [facility] lisinopriL 20 mg tablet 2022-0 11-27 00:00: 00 Yes [id number] 20mg Take 1 tablet by mouth in the morning. [facility] carvediloL 6.25 mg tablet 2022-0 11-27 00:00: 00 Yes [id number] 6.25mg Take 1 tablet by mouth in the morning and 1 tablet in the evening. [facility] amoxicillin 500 mg tablet 2022-0 11-27 00:00: 00 Yes [id number] 500mg Take 1 tablet by mouth in the morning and 1 tablet at noon and 1 tablet in the evening. [facility] lisinopriL 20 mg tablet 2022-0 11-27 00:00: 00 Yes [id number] 20mg Take 1 tablet by mouth in the morning. [facility] carvediloL 6.25 mg tablet 2022-0 11-27 00:00: 00 Yes [id number] 6.25mg Take 1 tablet by mouth in the morning and 1 tablet in the evening. [facility] amoxicillin 500 mg tablet 2022-0 11-27 00:00: 00 Yes [id number] 500mg Take 1 tablet by mouth in the morning and 1 tablet at noon and 1 tablet in the evening. [facility] lisinopriL 20 mg tablet 2022-0 11-27 00:00: 00 Yes [id number] 20mg Take 1 tablet by mouth in the morning. [facility] carvediloL 6.25 mg tablet 3-0 11-27 00:00: 00 Yes [id number] 6.25mg Take 1 tablet by mouth in the morning and 1 tablet in the evening. [facility] amoxicillin 500 mg tablet 3-0 27 00:00: 00 Yes [id number] 500mg Take 1 tablet by mouth in the morning and 1 tablet at noon and 1 tablet in the evening. [facility] lisinopriL 20 mg tablet 3-0 27 00:00: 00 Yes [id number] 20mg Take 1 tablet by mouth in the morning. [facility] carvediloL 6.25 mg tablet 3-0 27 00:00: 00 Yes [id number] 6.25mg Take 1 tablet by mouth in the morning and 1 tablet in the evening. [facility] amoxicillin 500 mg tablet 3-0 11-27 00:00: 00 Yes [id number] 500mg Take 1 tablet by mouth in the morning and 1 tablet at noon and 1 tablet in the evening. [facility] lisinopriL 20 mg tablet 3-0 11-27 00:00: 00 Yes [id number] 20mg Take 1 tablet by mouth in the morning. [facility] carvediloL 6.25 mg tablet 3-0 27 00:00: 00 Yes [id number] 6.25mg Take 1 tablet by mouth in the morning and 1 tablet in the evening. [facility] amoxicillin 500 mg tablet 3-0 11-27 00:00: 00 Yes [id number] 500mg Take 1 tablet by mouth in the morning and 1 tablet at noon and 1 tablet in the evening. [facility] lisinopriL 20 mg tablet 3-0 11-27 00:00: 00 Yes [id number] 20mg Take 1 tablet by mouth in the morning. [facility] carvediloL 6.25 mg tablet 3-0 27 00:00: 00 Yes [id number] 6.25mg Take 1 tablet by mouth in the morning and 1 tablet in the evening. [facility] amoxicillin 500 mg tablet 3-0 27 00:00: 00 Yes [id number] 500mg Take 1 tablet by mouth in the morning and 1 tablet at noon and 1 tablet in the evening. [facility] lisinopriL 20 mg tablet 3-0 27 00:00: 00 Yes [id number] 20mg Take 1 tablet by mouth in the morning. [facility] carvediloL 6.25 mg tablet 3-0 4-27 00:00: 00 Yes [id number] 6.25mg Take 1 tablet by mouth in the morning and 1 tablet in the evening. [facility] amoxicillin 500 mg tablet 2022-0 27 00:00: 00 Yes [id number] 500mg Take 1 tablet by mouth in the morning and 1 tablet at noon and 1 tablet in the evening. [facility] lisinopriL 20 mg tablet 2022-0 27 00:00: 00 Yes [id number] 20mg Take 1 tablet by mouth in the morning. [facility] carvediloL 6.25 mg tablet 2022-0 11-27 00:00: 00 Yes [id number] 6.25mg Take 1 tablet by mouth in the morning and 1 tablet in the evening. [facility] amoxicillin 500 mg tablet 2022-0 11-27 00:00: 00 Yes [id number] 500mg Take 1 tablet by mouth in the morning and 1 tablet at noon and 1 tablet in the evening. [facility] lisinopriL 20 mg tablet 2022-0 11-27 00:00: 00 Yes [id number] 20mg Take 1 tablet by mouth in the morning. [facility] carvediloL 6.25 mg tablet 2022-0 27 00:00: 00 Yes [id number] 6.25mg Take 1 tablet by mouth in the morning and 1 tablet in the evening. [facility] amoxicillin 500 mg tablet 2022-0 11-27 00:00: 00 Yes [id number] 500mg Take 1 tablet by mouth in the morning and 1 tablet at noon and 1 tablet in the evening. [facility] lisinopriL 20 mg tablet 3-0 27 00:00: 00 Yes [id number] 20mg Take 1 tablet by mouth in the morning. [facility] carvediloL 6.25 mg tablet 3-0 27 00:00: 00 Yes [id number] 6.25mg Take 1 tablet by mouth in the morning and 1 tablet in the evening. [facility] amoxicillin 500 mg tablet 3-0 27 00:00: 00 Yes [id number] 500mg Take 1 tablet by mouth in the morning and 1 tablet at noon and 1 tablet in the evening. [facility] lisinopriL 20 mg tablet 2022-0 11-27 00:00: 00 Yes [id number] 20mg Take 1 tablet by mouth in the morning. [facility] carvediloL 6.25 mg tablet 2022-0 11-27 00:00: 00 Yes [id number] 6.25mg Take 1 tablet by mouth in the morning and 1 tablet in the evening. [facility] amoxicillin 500 mg tablet 2022-0 11-27 00:00: 00 Yes [id number] 500mg Take 1 tablet by mouth in the morning and 1 tablet at noon and 1 tablet in the evening. [facility] lisinopriL 20 mg tablet 2022-0 11-27 00:00: 00 Yes [id number] 20mg Take 1 tablet by mouth in the morning. [facility] carvediloL 6.25 mg tablet 2022-0 11-27 00:00: 00 Yes [id number] 6.25mg Take 1 tablet by mouth in the morning and 1 tablet in the evening. [facility] amoxicillin 500 mg tablet 2022-0 11-27 00:00: 00 Yes [id number] 500mg Take 1 tablet by mouth in the morning and 1 tablet at noon and 1 tablet in the evening. [facility] lisinopriL 20 mg tablet 2022-0 11-27 00:00: 00 Yes [id number] 20mg Take 1 tablet by mouth in the morning. [facility] carvediloL 6.25 mg tablet 2022-0 11-27 00:00: 00 Yes [id number] 6.25mg Take 1 tablet by mouth in the morning and 1 tablet in the evening. [facility] amoxicillin 500 mg tablet 2022-0 11-27 00:00: 00 Yes [id number] 500mg Take 1 tablet by mouth in the morning and 1 tablet at noon and 1 tablet in the evening. [facility] lisinopriL 20 mg tablet 2022-0 11-27 00:00: 00 Yes [id number] 20mg Take 1 tablet by mouth in the morning. [facility] carvediloL 6.25 mg tablet 3-0 11-27 00:00: 00 Yes [id number] 6.25mg Take 1 tablet by mouth in the morning and 1 tablet in the evening. [facility] lisinopriL 20 mg tablet 3-0 427 00:00: 00 Yes [id number] 20mg Take 1 tablet by mouth in the morning. [facility] carvediloL 6.25 mg tablet 3-0 4-27 00:00: 00 Yes [id number] 6.25mg Take 1 tablet by mouth in the morning and 1 tablet in the evening. [facility] lisinopriL 20 mg tablet 3-0 427 00:00: 00 Yes [id number] 20mg Take 1 tablet by mouth in the morning. [facility] carvediloL 6.25 mg tablet 3-0 -27 00:00: 00 Yes [id number] 6.25mg Take 1 tablet by mouth in the morning and 1 tablet in the evening. [facility] lisinopriL 20 mg tablet 3-0 27 00:00: 00 Yes [id number] 20mg Take 1 tablet by mouth in the morning. [facility] carvediloL 6.25 mg tablet 3-0 27 00:00: 00 Yes [id number] 6.25mg Take 1 tablet by mouth in the morning and 1 tablet in the evening. [facility] lisinopriL 20 mg tablet 3-0 27 00:00: 00 Yes [id number] 20mg Take 1 tablet by mouth in the morning. [facility] carvediloL 6.25 mg tablet 3-0 27 00:00: 00 Yes [id number] 6.25mg Take 1 tablet by mouth in the morning and 1 tablet in the evening. [facility] lisinopriL 20 mg tablet 3-0 4-27 00:00: 00 Yes [id number] 20mg Take 1 tablet by mouth in the morning. [facility] carvediloL 6.25 mg tablet 2023-0 4-27 00:00: 00 Yes [id number] 6.25mg Take 1 tablet by mouth in the morning and 1 tablet in the evening. [facility] lisinopriL 20 mg tablet 3-0 4-27 00:00: 00 Yes [id number] 20mg Take 1 tablet by mouth in the morning. [facility] carvediloL 6.25 mg tablet 3-0 27 00:00: 00 Yes [id number] 6.25mg Take 1 tablet by mouth in the morning and 1 tablet in the evening. [facility] lisinopriL 20 mg tablet 3-0 27 00:00: 00 Yes [id number] 20mg Take 1 tablet by mouth in the morning. [facility] carvediloL 6.25 mg tablet 3-0 27 00:00: 00 Yes [id number] 6.25mg Take 1 tablet by mouth in the morning and 1 tablet in the evening. [facility] lisinopriL 20 mg tablet 3-0 27 00:00: 00 Yes [id number] 20mg Take 1 tablet by mouth in the morning. [facility] carvediloL 6.25 mg tablet 3-0 27 00:00: 00 Yes [id number] 6.25mg Take 1 tablet by mouth in the morning and 1 tablet in the evening. [facility] lisinopriL 20 mg tablet 3-0 27 00:00: 00 Yes [id number] 20mg Take 1 tablet by mouth in the morning. [facility] carvediloL 6.25 mg tablet 3-0 27 00:00: 00 Yes [id number] 6.25mg Take 1 tablet by mouth in the morning and 1 tablet in the evening. [facility] lisinopriL 20 mg tablet 3-0 27 00:00: 00 Yes [id number] 20mg Take 1 tablet by mouth in the morning. [facility] carvediloL 6.25 mg tablet 3-0 27 00:00: 00 Yes [id number] 6.25mg Take 1 tablet by mouth in the morning and 1 tablet in the evening. [facility] lisinopriL 20 mg tablet 3-0 27 00:00: 00 Yes [id number] 20mg Take 1 tablet by mouth in the morning. [facility] carvediloL 6.25 mg tablet 3-0 27 00:00: 00 Yes [id number] 6.25mg Take 1 tablet by mouth in the morning and 1 tablet in the evening. [facility] lisinopriL 20 mg tablet 3-0 27 00:00: 00 Yes [id number] 20mg Take 1 tablet by mouth in the morning. [facility] carvediloL 6.25 mg tablet 3-0 27 00:00: 00 Yes [id number] 6.25mg Take 1 tablet by mouth in the morning and 1 tablet in the evening. [facility] lisinopriL 20 mg tablet 3-0 27 00:00: 00 Yes [id number] 20mg Take 1 tablet by mouth in the morning. [facility] carvediloL 6.25 mg tablet 3-0 27 00:00: 00 Yes [id number] 6.25mg Take 1 tablet by mouth in the morning and 1 tablet in the evening. [facility] lisinopriL 20 mg tablet 3-0 27 00:00: 00 Yes [id number] 20mg Take 1 tablet by mouth in the morning. [facility] carvediloL 6.25 mg tablet 3-0 27 00:00: 00 Yes [id number] 6.25mg Take 1 tablet by mouth in the morning and 1 tablet in the evening. [facility] lisinopriL 20 mg tablet 3-0 27 00:00: 00 Yes [id number] 20mg Take 1 tablet by mouth in the morning. [facility] carvediloL 6.25 mg tablet 3-0 27 00:00: 00 Yes [id number] 6.25mg Take 1 tablet by mouth in the morning and 1 tablet in the evening. [facility] lisinopriL 20 mg tablet 3-0 27 00:00: 00 Yes [id number] 20mg Take 1 tablet by mouth in the morning. [facility] carvediloL 6.25 mg tablet 3-0 27 00:00: 00 Yes [id number] 6.25mg Take 1 tablet by mouth in the morning and 1 tablet in the evening. [facility] lisinopriL 20 mg tablet 2023-0 27 00:00: 00 Yes [id number] 20mg Take 1 tablet by mouth in the morning. [facility] carvediloL 6.25 mg tablet 3-0 427 00:00: 00 Yes [id number] 6.25mg Take 1 tablet by mouth in the morning and 1 tablet in the evening. [facility] lisinopriL 20 mg tablet 3-0 427 00:00: 00 Yes [id number] 20mg Take 1 tablet by mouth in the morning. [facility] carvediloL 6.25 mg tablet 3-0 427 00:00: 00 Yes [id number] 6.25mg Take 1 tablet by mouth in the morning and 1 tablet in the evening. [facility] lisinopriL 20 mg tablet 3-0 27 00:00: 00 Yes [id number] 20mg Take 1 tablet by mouth in the morning. [facility] carvediloL 6.25 mg tablet 3-0 27 00:00: 00 Yes [id number] 6.25mg Take 1 tablet by mouth in the morning and 1 tablet in the evening. [facility] lisinopriL 20 mg tablet 3-0 27 00:00: 00 Yes [id number] 20mg Take 1 tablet by mouth in the morning. [facility] carvediloL 6.25 mg tablet 3-0 27 00:00: 00 Yes [id number] 6.25mg Take 1 tablet by mouth in the morning and 1 tablet in the evening. [facility] lisinopriL 20 mg tablet 3-0 27 00:00: 00 Yes [id number] 20mg Take 1 tablet by mouth in the morning. [facility] carvediloL 6.25 mg tablet 3-0 4-27 00:00: 00 Yes [id number] 6.25mg Take 1 tablet by mouth in the morning and 1 tablet in the evening. [facility] lisinopriL 20 mg tablet 2023-0 4-27 00:00: 00 Yes [id number] 20mg Take 1 tablet by mouth in the morning. [facility] carvediloL 6.25 mg tablet 3-0 427 00:00: 00 Yes [id number] 6.25mg Take 1 tablet by mouth in the morning and 1 tablet in the evening. [facility] lisinopriL 20 mg tablet 3-0 4-27 00:00: 00 Yes [id number] 20mg Take 1 tablet by mouth in the morning. [facility] carvediloL 6.25 mg tablet 3-0 427 00:00: 00 Yes [id number] 6.25mg Take 1 tablet by mouth in the morning and 1 tablet in the evening. [facility] lisinopriL 20 mg tablet 3-0 27 00:00: 00 Yes [id number] 20mg Take 1 tablet by mouth in the morning. [facility] carvediloL 6.25 mg tablet 3-0 -27 00:00: 00 Yes [id number] 6.25mg Take 1 tablet by mouth in the morning and 1 tablet in the evening. [facility] lisinopriL 20 mg tablet 3-0 27 00:00: 00 Yes [id number] 20mg Take 1 tablet by mouth in the morning. [facility] carvediloL 6.25 mg tablet 3-0 27 00:00: 00 Yes [id number] 6.25mg Take 1 tablet by mouth in the morning and 1 tablet in the evening. [facility] lisinopriL 20 mg tablet 3-0 27 00:00: 00 Yes [id number] 20mg Take 1 tablet by mouth in the morning. [facility] carvediloL 6.25 mg tablet 3-0 27 00:00: 00 Yes [id number] 6.25mg Take 1 tablet by mouth in the morning and 1 tablet in the evening. [facility] lisinopriL 20 mg tablet 3-0 4-27 00:00: 00 Yes [id number] 20mg Take 1 tablet by mouth in the morning. [facility] carvediloL 6.25 mg tablet 2023-0 4-27 00:00: 00 Yes [id number] 6.25mg Take 1 tablet by mouth in the morning and 1 tablet in the evening. [facility] lisinopriL 20 mg tablet 2023-0 427 00:00: 00 Yes [id number] 20mg Take 1 tablet by mouth in the morning. [facility] carvediloL 6.25 mg tablet 3-0 4-27 00:00: 00 Yes [id number] 6.25mg Take 1 tablet by mouth in the morning and 1 tablet in the evening. [facility] lisinopriL 20 mg tablet 2023-0 427 00:00: 00 Yes [id number] 20mg Take 1 tablet by mouth in the morning. [facility] carvediloL 6.25 mg tablet 3-0 427 00:00: 00 Yes [id number] 6.25mg Take 1 tablet by mouth in the morning and 1 tablet in the evening. [facility] lisinopriL 20 mg tablet 3-0 4-27 00:00: 00 Yes [id number] 20mg Take 1 tablet by mouth in the morning. [facility] carvediloL 6.25 mg tablet 3-0 27 00:00: 00 Yes [id number] 6.25mg Take 1 tablet by mouth in the morning and 1 tablet in the evening. [facility] lisinopriL 20 mg tablet 3-0 27 00:00: 00 Yes [id number] 20mg Take 1 tablet by mouth in the morning. [facility] carvediloL 6.25 mg tablet 3-0 27 00:00: 00 Yes [id number] 6.25mg Take 1 tablet by mouth in the morning and 1 tablet in the evening. [facility] lisinopriL 20 mg tablet 3-0 427 00:00: 00 Yes [id number] 20mg Take 1 tablet by mouth in the morning. [facility] carvediloL 6.25 mg tablet 3-0 4-27 00:00: 00 Yes [id number] 6.25mg Take 1 tablet by mouth in the morning and 1 tablet in the evening. [facility] lisinopriL 20 mg tablet 2023-0 4-27 00:00: 00 Yes [id number] 20mg Take 1 tablet by mouth in the morning. [facility] carvediloL 6.25 mg tablet 3-0 27 00:00: 00 Yes [id number] 6.25mg Take 1 tablet by mouth in the morning and 1 tablet in the evening. [facility] lisinopriL 20 mg tablet 3-0 27 00:00: 00 Yes [id number] 20mg Take 1 tablet by mouth in the morning. [facility] carvediloL 6.25 mg tablet 3-0 27 00:00: 00 Yes [id number] 6.25mg Take 1 tablet by mouth in the morning and 1 tablet in the evening. [facility] lisinopriL 20 mg tablet 3-0 27 00:00: 00 Yes [id number] 20mg Take 1 tablet by mouth in the morning. [facility] carvediloL 6.25 mg tablet 3-0 27 00:00: 00 Yes [id number] 6.25mg Take 1 tablet by mouth in the morning and 1 tablet in the evening. [facility] lisinopriL 20 mg tablet 3-0 27 00:00: 00 Yes [id number] 20mg Take 1 tablet by mouth in the morning. [facility] carvediloL 6.25 mg tablet 3-0 27 00:00: 00 Yes [id number] 6.25mg Take 1 tablet by mouth in the morning and 1 tablet in the evening. [facility] lisinopriL 20 mg tablet 3-0 27 00:00: 00 Yes [id number] 20mg Take 1 tablet by mouth in the morning. [facility] carvediloL 6.25 mg tablet 3-0 27 00:00: 00 Yes [id number] 6.25mg Take 1 tablet by mouth in the morning and 1 tablet in the evening. [facility] lisinopriL 20 mg tablet 3-0 -27 00:00: 00 Yes [id number] 20mg Take 1 tablet by mouth in the morning. [facility] carvediloL 6.25 mg tablet 3-0 27 00:00: 00 Yes [id number] 6.25mg Take 1 tablet by mouth in the morning and 1 tablet in the evening. [facility] lisinopriL 20 mg tablet 2023-0 427 00:00: 00 Yes [id number] 20mg Take 1 tablet by mouth in the morning. [facility] carvediloL 6.25 mg tablet 2023-0 427 00:00: 00 Yes [id number] 6.25mg Take 1 tablet by mouth in the morning and 1 tablet in the evening. [facility] lisinopriL 20 mg tablet 3-0 4-27 00:00: 00 Yes [id number] 20mg Take 1 tablet by mouth in the morning. [facility] carvediloL 6.25 mg tablet 3-0 -27 00:00: 00 Yes [id number] 6.25mg Take 1 tablet by mouth in the morning and 1 tablet in the evening. [facility] lisinopriL 20 mg tablet 2023-0 27 00:00: 00 Yes [id number] 20mg Take 1 tablet by mouth in the morning. [facility] carvediloL 6.25 mg tablet 3-0 27 00:00: 00 Yes [id number] 6.25mg Take 1 tablet by mouth in the morning and 1 tablet in the evening. [facility] lisinopriL 20 mg tablet 3-0 27 00:00: 00 Yes [id number] 20mg Take 1 tablet by mouth in the morning. [facility] carvediloL 6.25 mg tablet 2023-0 27 00:00: 00 Yes [id number] 6.25mg Take 1 tablet by mouth in the morning and 1 tablet in the evening. [facility] lisinopriL 20 mg tablet 3-0 427 00:00: 00 Yes [id number] 20mg Take 1 tablet by mouth in the morning. [facility] carvediloL 6.25 mg tablet 3-0 4-27 00:00: 00 Yes [id number] 6.25mg Take 1 tablet by mouth in the morning and 1 tablet in the evening. [facility] lisinopriL 20 mg tablet 2023-0 4-27 00:00: 00 Yes [id number] 20mg Take 1 tablet by mouth in the morning. [facility] carvediloL 6.25 mg tablet 3-0 27 00:00: 00 Yes [id number] 6.25mg Take 1 tablet by mouth in the morning and 1 tablet in the evening. [facility] lisinopriL 20 mg tablet 3-0 27 00:00: 00 Yes [id number] 20mg Take 1 tablet by mouth in the morning. [facility] carvediloL 6.25 mg tablet 3-0 27 00:00: 00 Yes [id number] 6.25mg Take 1 tablet by mouth in the morning and 1 tablet in the evening. [facility] lisinopriL 20 mg tablet 3-0 27 00:00: 00 Yes [id number] 20mg Take 1 tablet by mouth in the morning. [facility] carvediloL 6.25 mg tablet 3-0 27 00:00: 00 Yes [id number] 6.25mg Take 1 tablet by mouth in the morning and 1 tablet in the evening. [facility] lisinopriL 20 mg tablet 3-0 27 00:00: 00 Yes [id number] 20mg Take 1 tablet by mouth in the morning. [facility] carvediloL 6.25 mg tablet 3-0 27 00:00: 00 Yes [id number] 6.25mg Take 1 tablet by mouth in the morning and 1 tablet in the evening. [facility] lisinopriL 20 mg tablet 3-0 27 00:00: 00 Yes [id number] 20mg Take 1 tablet by mouth in the morning. [facility] carvediloL 6.25 mg tablet 3-0 27 00:00: 00 Yes [id number] 6.25mg Take 1 tablet by mouth in the morning and 1 tablet in the evening. [facility] lisinopriL 20 mg tablet 3-0 27 00:00: 00 Yes [id number] 20mg Take 1 tablet by mouth in the morning. [facility] carvediloL 6.25 mg tablet 3-0 27 00:00: 00 Yes [id number] 6.25mg Take 1 tablet by mouth in the morning and 1 tablet in the evening. [facility] lisinopriL 20 mg tablet 3-0 27 00:00: 00 Yes [id number] 20mg Take 1 tablet by mouth in the morning. [facility] carvediloL 6.25 mg tablet 3-0 27 00:00: 00 Yes [id number] 6.25mg Take 1 tablet by mouth in the morning and 1 tablet in the evening. [facility] lisinopriL 20 mg tablet 3-0 27 00:00: 00 Yes [id number] 20mg Take 1 tablet by mouth in the morning. [facility] carvediloL 6.25 mg tablet 2022-0 27 00:00: 00 Yes [id number] 6.25mg Take 1 tablet by mouth in the morning and 1 tablet in the evening. [facility] lisinopriL 20 mg tablet 2022-0 11-27 00:00: 00 Yes [id number] 20mg Take 1 tablet by mouth in the morning. [facility] carvediloL 6.25 mg tablet 3-0 27 00:00: 00 Yes [id number] 6.25mg Take 1 tablet by mouth in the morning and 1 tablet in the evening. [facility] lisinopriL 20 mg tablet 2022-0 11-27 00:00: 00 05-13 00:00 :00 No [id number] 20mg Take 1 tablet by mouth in the morning. [facility] carvediloL 6.25 mg tablet 2022-0 27 00:00: 00 05-13 00:00 :00 No [id number] 6.25mg Take 1 tablet by mouth in the morning and 1 tablet in the evening. [facility] amoxicillin 500 mg tablet 2022-0 11-27 00:00: 00 12-22 00:00 :00 No [id number] 500mg Take 1 tablet by mouth in the morning and 1 tablet at noon and 1 tablet in the evening. [facility] amoxicillin 500 mg tablet 2022-0 11-27 00:00: 00 12-22 00:00 :00 No [id number] 500mg Take 1 tablet by mouth in the morning and 1 tablet at noon and 1 tablet in the evening. [facility] escitalopra m oxalate 20 mg tablet 2022-0 11-12 09:26: 18 Yes 1 tablet [facility] escitalopra m oxalate 20 mg tablet 2022-0 11-12 09:26: 18 Yes 1 tablet [facility] escitalopra m oxalate 20 mg tablet 2022-0 11-12 09:26: 18 Yes 1 tablet [facility] escitalopra m oxalate 20 mg tablet 2022-0 11-12 09:26: 18 Yes 1 tablet [facility] escitalop[facility] m oxalate 20 mg tablet 2022-0 11-12 09:26: 18 Yes 1 tablet [facility] escitalopra m oxalate 20 mg tablet 2022-0 11-12 09:26: 18 Yes 1 tablet [facility] escitalopra m oxalate 20 mg tablet 2022-0 11-12 09:26: 18 Yes 1 tablet [facility] escitalopra m oxalate 20 mg tablet 2022-0 11-12 09:26: 18 Yes 1 tablet [facility] escitalopra m oxalate 20 mg tablet 2022-0 11-12 09:26: 18 Yes 1 tablet [facility] escitalopra m oxalate 20 mg tablet 2022-0 11-12 09:26: 18 Yes 1 tablet [facility] escitalopra m oxalate 20 mg tablet 2022-0 11-12 09:26: 18 Yes 1 tablet [facility] escitalopra m oxalate 20 mg tablet 2022-0 11-12 09:26: 18 Yes 1 tablet [facility] escitalopra m oxalate 20 mg tablet 2022-0 11-12 09:26: 18 Yes 1 tablet [facility] escitalopra m oxalate 20 mg tablet 2022-0 12 09:26: 18 Yes 1 tablet [facility] escitalopra m oxalate 20 mg tablet 2022-0 11-12 09:26: 18 Yes 1 tablet [facility] escitalopra m oxalate 20 mg tablet 2022-0 11-12 09:26: 18 Yes 1 tablet [facility] escitalopra m oxalate 20 mg tablet 2022-0 11-12 09:26: 18 Yes 1 tablet [facility] escitalopra m oxalate 20 mg tablet 2022-0 11-12 09:26: 18 Yes 1 tablet [facility] escitalopra m oxalate 20 mg tablet 2022-0 11-12 09:26: 18 Yes 1 tablet [facility] escitalopra m oxalate 20 mg tablet 2022-0 11-12 09:26: 18 Yes 1 tablet [facility] escitalopra m oxalate 20 mg tablet 2022-0 11-12 09:26: 18 Yes 1 tablet [facility] escitalopra m oxalate 20 mg tablet 2022-0 11-12 09:26: 18 Yes 1 tablet [facility] spironolact one 25 mg tablet 2022-0 11-12 00:00: 00 Yes [id number] 25mg Take 1 tablet by mouth in the morning and 1 tablet in the evening. [facility] furosemide 80 mg tablet 2022-0 12 00:00: 00 Yes [id number] 80mg Take 1 tablet by mouth in the morning. [facility] spironolact one 25 mg tablet 2022-0 12 00:00: 00 Yes [id number] 25mg Take 1 tablet by mouth in the morning and 1 tablet in the evening. [facility] furosemide 80 mg tablet 2022-0 12 00:00: 00 Yes [id number] 80mg Take 1 tablet by mouth in the morning. [facility] spironolact one 25 mg tablet 2022-0 12 00:00: 00 Yes [id number] 25mg Take 1 tablet by mouth in the morning and 1 tablet in the evening. [facility] furosemide 80 mg tablet 2022-0 12 00:00: 00 Yes [id number] 80mg Take 1 tablet by mouth in the morning. [facility] spironolact one 25 mg tablet 2023-0 4-12 00:00: 00 Yes [id number] 25mg Take 1 tablet by mouth in the morning and 1 tablet in the evening. [facility] furosemide 80 mg tablet 2023-0 4-12 00:00: 00 Yes [id number] 80mg Take 1 tablet by mouth in the morning. [facility] spironolact one 25 mg tablet 2023-0 4-12 00:00: 00 Yes [id number] 25mg Take 1 tablet by mouth in the morning and 1 tablet in the evening. [facility] furosemide 80 mg tablet 2023-0 4-12 00:00: 00 Yes [id number] 80mg Take 1 tablet by mouth in the morning. [facility] spironolact one 25 mg tablet 3-0 4-12 00:00: 00 Yes [id number] 25mg Take 1 tablet by mouth in the morning and 1 tablet in the evening. [facility] furosemide 80 mg tablet 2023-0 4-12 00:00: 00 Yes [id number] 80mg Take 1 tablet by mouth in the morning. [facility] spironolact one 25 mg tablet 2023-0 4-12 00:00: 00 Yes [id number] 25mg Take 1 tablet by mouth in the morning and 1 tablet in the evening. [facility] furosemide 80 mg tablet 2023-0 4-12 00:00: 00 Yes [id number] 80mg Take 1 tablet by mouth in the morning. [facility] spironolact one 25 mg tablet 2023-0 4-12 00:00: 00 Yes [id number] 25mg Take 1 tablet by mouth in the morning and 1 tablet in the evening. [facility] furosemide 80 mg tablet 2023-0 4-12 00:00: 00 Yes [id number] 80mg Take 1 tablet by mouth in the morning. [facility] spironolact one 25 mg tablet 2023-0 4-12 00:00: 00 Yes [id number] 25mg Take 1 tablet by mouth in the morning and 1 tablet in the evening. [facility] furosemide 80 mg tablet 2023-0 4-12 00:00: 00 Yes [id number] 80mg Take 1 tablet by mouth in the morning. [facility] spironolact one 25 mg tablet 2023-0 4-12 00:00: 00 Yes [id number] 25mg Take 1 tablet by mouth in the morning and 1 tablet in the evening. [facility] furosemide 80 mg tablet 2023-0 4-12 00:00: 00 Yes [id number] 80mg Take 1 tablet by mouth in the morning. [facility] spironolact one 25 mg tablet 2023-0 4-12 00:00: 00 Yes [id number] 25mg Take 1 tablet by mouth in the morning and 1 tablet in the evening. [facility] furosemide 80 mg tablet 2023-0 4-12 00:00: 00 Yes [id number] 80mg Take 1 tablet by mouth in the morning. [facility] spironolact one 25 mg tablet 2023-0 4-12 00:00: 00 Yes [id number] 25mg Take 1 tablet by mouth in the morning and 1 tablet in the evening. [facility] furosemide 80 mg tablet 2023-0 4-12 00:00: 00 Yes [id number] 80mg Take 1 tablet by mouth in the morning. [facility] spironolact one 25 mg tablet 2023-0 4-12 00:00: 00 Yes [id number] 25mg Take 1 tablet by mouth in the morning and 1 tablet in the evening. [facility] furosemide 80 mg tablet 2023-0 4-12 00:00: 00 Yes [id number] 80mg Take 1 tablet by mouth in the morning. [facility] spironolact one 25 mg tablet 2023-0 4-12 00:00: 00 Yes [id number] 25mg Take 1 tablet by mouth in the morning and 1 tablet in the evening. [facility] furosemide 80 mg tablet 2023-0 4-12 00:00: 00 Yes [id number] 80mg Take 1 tablet by mouth in the morning. [facility] spironolact one 25 mg tablet 2023-0 4-12 00:00: 00 Yes [id number] 25mg Take 1 tablet by mouth in the morning and 1 tablet in the evening. [facility] furosemide 80 mg tablet 2023-0 4-12 00:00: 00 Yes [id number] 80mg Take 1 tablet by mouth in the morning. [facility] spironolact one 25 mg tablet 3-0 4-12 00:00: 00 Yes [id number] 25mg Take 1 tablet by mouth in the morning and 1 tablet in the evening. [facility] furosemide 80 mg tablet 2023-0 4-12 00:00: 00 Yes [id number] 80mg Take 1 tablet by mouth in the morning. [facility] spironolact one 25 mg tablet 3-0 4-12 00:00: 00 Yes [id number] 25mg Take 1 tablet by mouth in the morning and 1 tablet in the evening. [facility] furosemide 80 mg tablet 3-0 4-12 00:00: 00 Yes [id number] 80mg Take 1 tablet by mouth in the morning. [facility] spironolact one 25 mg tablet 3-0 4-12 00:00: 00 Yes [id number] 25mg Take 1 tablet by mouth in the morning and 1 tablet in the evening. [facility] furosemide 80 mg tablet 3-0 4-12 00:00: 00 Yes [id number] 80mg Take 1 tablet by mouth in the morning. [facility] spironolact one 25 mg tablet 3-0 4-12 00:00: 00 Yes [id number] 25mg Take 1 tablet by mouth in the morning and 1 tablet in the evening. [facility] furosemide 80 mg tablet 3-0 4-12 00:00: 00 Yes [id number] 80mg Take 1 tablet by mouth in the morning. [facility] spironolact one 25 mg tablet 3-0 4-12 00:00: 00 Yes [id number] 25mg Take 1 tablet by mouth in the morning and 1 tablet in the evening. [facility] furosemide 80 mg tablet 2023-0 4-12 00:00: 00 Yes [id number] 80mg Take 1 tablet by mouth in the morning. [facility] spironolact one 25 mg tablet 2023-0 4-12 00:00: 00 Yes [id number] 25mg Take 1 tablet by mouth in the morning and 1 tablet in the evening. [facility] furosemide 80 mg tablet 3-0 4-12 00:00: 00 Yes [id number] 80mg Take 1 tablet by mouth in the morning. [facility] spironolact one 25 mg tablet 2023-0 4-12 00:00: 00 Yes [id number] 25mg Take 1 tablet by mouth in the morning and 1 tablet in the evening. [facility] furosemide 80 mg tablet 3-0 4-12 00:00: 00 Yes [id number] 80mg Take 1 tablet by mouth in the morning. [facility] spironolact one 25 mg tablet 3-0 4-12 00:00: 00 Yes [id number] 25mg Take 1 tablet by mouth in the morning and 1 tablet in the evening. [facility] furosemide 80 mg tablet 3-0 4-12 00:00: 00 Yes [id number] 80mg Take 1 tablet by mouth in the morning. [facility] spironolact one 25 mg tablet 3-0 4-12 00:00: 00 Yes [id number] 25mg Take 1 tablet by mouth in the morning and 1 tablet in the evening. [facility] furosemide 80 mg tablet 3-0 4-12 00:00: 00 Yes [id number] 80mg Take 1 tablet by mouth in the morning. [facility] spironolact one 25 mg tablet 3-0 4-12 00:00: 00 Yes [id number] 25mg Take 1 tablet by mouth in the morning and 1 tablet in the evening. [facility] furosemide 80 mg tablet 3-0 4-12 00:00: 00 Yes [id number] 80mg Take 1 tablet by mouth in the morning. [facility] spironolact one 25 mg tablet 3-0 4-12 00:00: 00 Yes [id number] 25mg Take 1 tablet by mouth in the morning and 1 tablet in the evening. [facility] furosemide 80 mg tablet 3-0 4-12 00:00: 00 Yes [id number] 80mg Take 1 tablet by mouth in the morning. [facility] spironolact one 25 mg tablet 2023-0 4-12 00:00: 00 Yes [id number] 25mg Take 1 tablet by mouth in the morning and 1 tablet in the evening. [facility] furosemide 80 mg tablet 2023-0 4-12 00:00: 00 Yes [id number] 80mg Take 1 tablet by mouth in the morning. [facility] spironolact one 25 mg tablet 2023-0 4-12 00:00: 00 Yes [id number] 25mg Take 1 tablet by mouth in the morning and 1 tablet in the evening. [facility] furosemide 80 mg tablet 2023-0 4-12 00:00: 00 Yes [id number] 80mg Take 1 tablet by mouth in the morning. [facility] spironolact one 25 mg tablet 2023-0 4-12 00:00: 00 Yes [id number] 25mg Take 1 tablet by mouth in the morning and 1 tablet in the evening. [facility] furosemide 80 mg tablet 2023-0 4-12 00:00: 00 Yes [id number] 80mg Take 1 tablet by mouth in the morning. [facility] spironolact one 25 mg tablet 2023-0 4-12 00:00: 00 Yes [id number] 25mg Take 1 tablet by mouth in the morning and 1 tablet in the evening. [facility] furosemide 80 mg tablet 2023-0 4-12 00:00: 00 Yes [id number] 80mg Take 1 tablet by mouth in the morning. [facility] spironolact one 25 mg tablet 2023-0 4-12 00:00: 00 Yes [id number] 25mg Take 1 tablet by mouth in the morning and 1 tablet in the evening. [facility] furosemide 80 mg tablet 2023-0 4-12 00:00: 00 Yes [id number] 80mg Take 1 tablet by mouth in the morning. [facility] spironolact one 25 mg tablet 2023-0 4-12 00:00: 00 Yes [id number] 25mg Take 1 tablet by mouth in the morning and 1 tablet in the evening. [facility] furosemide 80 mg tablet 2023-0 4-12 00:00: 00 Yes [id number] 80mg Take 1 tablet by mouth in the morning. [facility] spironolact one 25 mg tablet 2023-0 4-12 00:00: 00 Yes [id number] 25mg Take 1 tablet by mouth in the morning and 1 tablet in the evening. [facility] furosemide 80 mg tablet 2023-0 4-12 00:00: 00 Yes [id number] 80mg Take 1 tablet by mouth in the morning. [facility] spironolact one 25 mg tablet 3-0 4-12 00:00: 00 Yes [id number] 25mg Take 1 tablet by mouth in the morning and 1 tablet in the evening. [facility] furosemide 80 mg tablet 3-0 4-12 00:00: 00 Yes [id number] 80mg Take 1 tablet by mouth in the morning. [facility] spironolact one 25 mg tablet 2023-0 4-12 00:00: 00 Yes [id number] 25mg Take 1 tablet by mouth in the morning and 1 tablet in the evening. [facility] furosemide 80 mg tablet 3-0 4-12 00:00: 00 Yes [id number] 80mg Take 1 tablet by mouth in the morning. [facility] spironolact one 25 mg tablet 3-0 4-12 00:00: 00 Yes [id number] 25mg Take 1 tablet by mouth in the morning and 1 tablet in the evening. [facility] furosemide 80 mg tablet 2023-0 4-12 00:00: 00 Yes [id number] 80mg Take 1 tablet by mouth in the morning. [facility] spironolact one 25 mg tablet 2023-0 4-12 00:00: 00 Yes [id number] 25mg Take 1 tablet by mouth in the morning and 1 tablet in the evening. [facility] furosemide 80 mg tablet 2023-0 4-12 00:00: 00 Yes [id number] 80mg Take 1 tablet by mouth in the morning. [facility] furosemide 80 mg tablet 2023-0 4-12 00:00: 00 Yes [id number] 80mg Take 1 tablet by mouth in the morning. [facility]-0 4-12 00:00: 00 Yes [id number] 80mg Take 1 tablet by mouth in the morning. [facility] f[facility] mg tablet 3-0 4-12 00:00: 00 Yes [id number] 80mg Take 1 tablet by mouth in the morning. [facility] f[facility] 80 mg tablet 3-0 4-12 00:00: 00 Yes [id number] 80mg Take 1 tablet by mouth in the morning. [facility] mg tablet 3-0 4-12 00:00: 00 Yes [id number] 80mg Take 1 tablet by mouth in the morning. [facility] furosemide 80 mg tablet 3-0 4-12 00:00: 00 Yes [id number] 80mg Take 1 tablet by mouth in the morning. [facility] furosemide 80 mg tablet 3-0 4-12 00:00: 00 Yes [id number] 80mg Take 1 tablet by mouth in the morning. [facility] furosemide 80 mg tablet 3-0 4-12 00:00: 00 Yes [id number] 80mg Take 1 tablet by mouth in the morning. [facility] furosemide 80 mg tablet 3-0 4-12 00:00: 00 Yes [id number] 80mg Take 1 tablet by mouth in the morning. [facility] furosemide 80 mg tablet 3-0 4-12 00:00: 00 Yes [id number] 80mg Take 1 tablet by mouth in the morning. [facility] furosemide 80 mg tablet 3-0 4-12 00:00: 00 Yes [id number] 80mg Take 1 tablet by mouth in the morning. [facility] furosemide 80 mg tablet 3-0 4-12 00:00: 00 Yes [id number] 80mg Take 1 tablet by mouth in the morning. [facility] furosemide 80 mg tablet 3-0 4-12 00:00: 00 Yes [id number] 80mg Take 1 tablet by mouth in the morning. [facility] furosemide 80 mg tablet 2023-0 4-12 00:00: 00 Yes [id number] 80mg Take 1 tablet by mouth in the morning. [facility] furosemide 80 mg tablet 2022-0 4-12 00:00: 00 Yes [id number] 80mg Take 1 tablet by mouth in the morning. [facility] furosemide 80 mg tablet 2022-0 4-12 00:00: 00 Yes [id number] 80mg Take 1 tablet by mouth in the morning. [facility] furosemide 80 mg tablet 2022-0 4-12 00:00: 00 Yes [id number] 80mg Take 1 tablet by mouth in the morning. [facility] furosemide 80 mg tablet 2022-0 4-12 00:00: 00 Yes [id number] 80mg Take 1 tablet by mouth in the morning. [facility] furosemide 80 mg tablet 2022-0 4-12 00:00: 00 Yes [id number] 80mg Take 1 tablet by mouth in the morning. [facility] furosemide 80 mg tablet 2022-0 4-12 00:00: 00 Yes [id number] 80mg Take 1 tablet by mouth in the morning. [facility] furosemide 80 mg tablet 2022-0 4-12 00:00: 00 Yes [id number] 80mg Take 1 tablet by mouth in the morning. [facility] furosemide 80 mg tablet 2022-0 4-12 00:00: 00 Yes [id number] 80mg Take 1 tablet by mouth in the morning. [facility] furosemide 80 mg tablet 2022-0 4-12 00:00: 00 Yes [id number] 80mg Take 1 tablet by mouth in the morning. [facility] furosemide 80 mg tablet 2022-0 4-12 00:00: 00 04-13 00:00 :00 No [id number] 80mg Take 1 tablet by mouth in the morning. [facility] spironolact one 25 mg tablet 2022-0 4-12 00:00: 00 01-26 00:00 :00 No [id number] 25mg Take 1 tablet by mouth in the morning and 1 tablet in the evening. [facility] traMADoL 50 mg tablet 2022-0 4-12 00:00: 00 11-20 04:59 :00 No [id number] 50mg Take 1 tablet by mouth every 6 (six) hours as needed for Pain (scale 4-6) for up to 7 days. Indication s: chronic pain [facility] traMADoL 50 mg tablet 2022-0 412 00:00: 00 11-20 04:59 :00 No [id number] 50mg Take 1 tablet by mouth every 6 (six) hours as needed for Pain (scale 4-6) for up to 7 days. Indication s: chronic pain [facility] traMADoL 50 mg tablet 2022-0 12 00:00: 00 11-20 04:59 :00 No [id number] 50mg Take 1 tablet by mouth every 6 (six) hours as needed for Pain (scale 4-6) for up to 7 days. Indication s: chronic pain [facility] traMADoL 50 mg tablet 2022-0 12 00:00: 00 11-20 04:59 :00 No [id number] 50mg Take 1 tablet by mouth every 6 (six) hours as needed for Pain (scale 4-6) for up to 7 days. Indication s: chronic pain [facility] traMADoL 50 mg tablet 2022-0 12 00:00: 00 11-20 04:59 :00 No [id number] 50mg Take 1 tablet by mouth every 6 (six) hours as needed for Pain (scale 4-6) for up to 7 days. Indication s: chronic pain [facility] nystatin 100,000 unit/mL suspension 0 405 00:00: 00 Yes [id number] Take 5 mL by mouth 4 (four) times daily. [facility] nystatin 100,000 unit/mL suspension 0 405 00:00: 00 Yes [id number] Take 5 mL by mouth 4 (four) times daily. [facility] nystatin 100,000 unit/mL suspension 0 4-05 00:00: 00 Yes [id number] Take 5 mL by mouth 4 (four) times daily. [facility] nystatin 100,000 unit/mL suspension 2022-0 4-05 00:00: 00 Yes [id number] Take 5 mL by mouth 4 (four) times daily. [facility] nystatin 100,000 unit/mL suspension 0 4-05 00:00: 00 Yes [id number] Take 5 mL by mouth 4 (four) times daily. [facility] nystatin 100,000 unit/mL suspension 2022-0 4-05 00:00: 00 Yes [id number] Take 5 mL by mouth 4 (four) times daily. [facility] nystatin 100,000 unit/mL suspension 2022-0 4-05 00:00: 00 Yes [id number] Take 5 mL by mouth 4 (four) times daily. [facility] nystatin 100,000 unit/mL suspension 2022-0 4-05 00:00: 00 Yes [id number] Take 5 mL by mouth 4 (four) times daily. [facility] nystatin 100,000 unit/mL suspension 0 4-05 00:00: 00 Yes [id number] Take 5 mL by mouth 4 (four) times daily. [facility] nystatin 100,000 unit/mL suspension 2022-0 -05 00:00: 00 Yes [id number] Take 5 mL by mouth 4 (four) times daily. [facility] nystatin 100,000 unit/mL suspension 2022-0 4-05 00:00: 00 Yes [id number] Take 5 mL by mouth 4 (four) times daily. [facility] nystatin 100,000 unit/mL suspension 2022-0 4-05 00:00: 00 Yes [id number] Take 5 mL by mouth 4 (four) times daily. [facility] nystatin 100,000 unit/mL suspension 2022-0 4-05 00:00: 00 Yes [id number] Take 5 mL by mouth 4 (four) times daily. [facility] nystatin 100,000 unit/mL suspension 2022-0 4-05 00:00: 00 Yes [id number] Take 5 mL by mouth 4 (four) times daily. [facility] nystatin 100,000 unit/mL suspension 0 4-05 00:00: 00 Yes [id number] Take 5 mL by mouth 4 (four) times daily. [facility] nystatin 100,000 unit/mL suspension 0 405 00:00: 00 Yes [id number] Take 5 mL by mouth 4 (four) times daily. [facility] nystatin 100,000 unit/mL suspension 0 -05 00:00: 00 Yes [id number] Take 5 mL by mouth 4 (four) times daily. [facility] nystatin 100,000 unit/mL suspension 0 05 00:00: 00 Yes [id number] Take 5 mL by mouth 4 (four) times daily. [facility] nystatin 100,000 unit/mL suspension 0 05 00:00: 00 Yes [id number] Take 5 mL by mouth 4 (four) times daily. [facility] nystatin 100,000 unit/mL suspension 0 05 00:00: 00 Yes [id number] Take 5 mL by mouth 4 (four) times daily. [facility] nystatin 100,000 unit/mL suspension 0 05 00:00: 00 Yes [id number] Take 5 mL by mouth 4 (four) times daily. [facility] nystatin 100,000 unit/mL suspension 0 -05 00:00: 00 Yes [id number] Take 5 mL by mouth 4 (four) times daily. [facility] nystatin 100,000 unit/mL suspension 0 -05 00:00: 00 Yes [id number] Take 5 mL by mouth 4 (four) times daily. [facility] nystatin 100,000 unit/mL suspension 0 4-05 00:00: 00 Yes [id number] Take 5 mL by mouth 4 (four) times daily. [facility] nystatin 100,000 unit/mL suspension 0 4-05 00:00: 00 Yes [id number] Take 5 mL by mouth 4 (four) times daily. [facility] n[facility]atin 100,000 unit/mL suspension 0 11-05 00:00: 00 Yes [id number] Take 5 mL by mouth 4 (four) times daily. [facility] nystatin 100,000 unit/mL suspension 0 11-05 00:00: 00 Yes [id number] Take 5 mL by mouth 4 (four) times daily. [facility] nystatin 100,000 unit/mL suspension 0 11-05 00:00: 00 Yes [id number] Take 5 mL by mouth 4 (four) times daily. [facility] nystatin 100,000 unit/mL suspension 11-05 00:00: 00 Yes [id number] Take 5 mL by mouth 4 (four) times daily. [facility] nystatin 100,000 unit/mL suspension 11-05 00:00: 00 Yes [id number] Take 5 mL by mouth 4 (four) times daily. [facility] nystatin 100,000 unit/mL suspension 11-05 00:00: 00 Yes [id number] Take 5 mL by mouth 4 (four) times daily. [facility] nystatin 100,000 unit/mL suspension 11-05 00:00: 00 01-01 00:00 :00 No [id number] Take 5 mL by mouth 4 (four) times daily. [facility] benzonatate (TESSALON PERLES) 100 mg capsule 10-30 00:00: 00 Yes [id number] 100mg Take 1 capsule by mouth every 8 (eight) hours as needed for Cough. [facility] azelastine 137 mcg (0.1 %) nasal spray 10-30 00:00: 00 Yes [id number] 1{spray } Use 1 [place] in each nostril in the morning and 1 [place] in the evening. Use in each nostril as directed [facility] benzonatate (TESSALON PERLES) 100 mg capsule 10-30 00:00: 00 Yes [id number] 100mg Take 1 capsule by mouth every 8 (eight) hours as needed for Cough. [facility] azelastine 137 mcg (0.1 %) nasal spray 10-30 00:00: 00 Yes [id number] 1{spray } Use 1 [place] in each nostril in the morning and 1 [place] in the evening. Use in each nostril as directed [facility] benzonatate (TESSALON PERLES) 100 mg capsule 10-30 00:00: 00 Yes [id number] 100mg Take 1 capsule by mouth every 8 (eight) hours as needed for Cough. [facility] azelastine 137 mcg (0.1 %) nasal spray 10-30 00:00: 00 Yes [id number] 1{spray } Use 1 [place] in each nostril in the morning and 1 [place] in the evening. Use in each nostril as directed [facility] benzonatate (TESSALON PERLES) 100 mg capsule 10-30 00:00: 00 Yes [id number] 100mg Take 1 capsule by mouth every 8 (eight) hours as needed for Cough. [facility] azelastine 137 mcg (0.1 %) nasal spray 10-30 00:00: 00 Yes [id number] 1{spray } Use 1 [place] in each nostril in the morning and 1 [place] in the evening. Use in each nostril as directed [facility] benzonatate (TESSALON PERLES) 100 mg capsule 10-30 00:00: 00 Yes [id number] 100mg Take 1 capsule by mouth every 8 (eight) hours as needed for Cough. [facility] azelastine 137 mcg (0.1 %) nasal spray 10-30 00:00: 00 Yes [id number] 1{spray } Use 1 [place] in each nostril in the morning and 1 [place] in the evening. Use in each nostril as directed [facility] benzonatate (TESSALON PERLES) 100 mg capsule 10-30 00:00: 00 Yes [id number] 100mg Take 1 capsule by mouth every 8 (eight) hours as needed for Cough. [facility] azelastine 137 mcg (0.1 %) nasal spray 10-30 00:00: 00 Yes [id number] 1{spray } Use 1 [place] in each nostril in the morning and 1 [place] in the evening. Use in each nostril as directed [facility] benzonatate (TESSALON PERLES) 100 mg capsule 10-30 00:00: 00 Yes [id number] 100mg Take 1 capsule by mouth every 8 (eight) hours as needed for Cough. [facility] azelastine 137 mcg (0.1 %) nasal spray 10-30 00:00: 00 Yes [id number] 1{spray } Use 1 [place] in each nostril in the morning and 1 [place] in the evening. Use in each nostril as directed [facility] benzonatate (TESSALON PERLES) 100 mg capsule 10-30 00:00: 00 Yes [id number] 100mg Take 1 capsule by mouth every 8 (eight) hours as needed for Cough. [facility] azelastine 137 mcg (0.1 %) nasal spray 10-30 00:00: 00 Yes [id number] 1{spray } Use 1 [place] in each nostril in the morning and 1 [place] in the evening. Use in each nostril as directed [facility] benzonatate (TESSALON PERLES) 100 mg capsule 10-30 00:00: 00 Yes [id number] 100mg Take 1 capsule by mouth every 8 (eight) hours as needed for Cough. [facility] azelastine 137 mcg (0.1 %) nasal spray 10-30 00:00: 00 Yes [id number] 1{spray } Use 1 [place] in each nostril in the morning and 1 [place] in the evening. Use in each nostril as directed [facility] benzonatate (TESSALON PERLES) 100 mg capsule 0 10-30 00:00: 00 Yes [id number] 100mg Take 1 capsule by mouth every 8 (eight) hours as needed for Cough. [facility] azelastine 137 mcg (0.1 %) nasal spray 10-30 00:00: 00 Yes [id number] 1{spray } Use 1 [place] in each nostril in the morning and 1 [place] in the evening. Use in each nostril as directed [facility] benzonatate (TESSALON PERLES) 100 mg capsule 10-30 00:00: 00 Yes [id number] 100mg Take 1 capsule by mouth every 8 (eight) hours as needed for Cough. [facility] azelastine 137 mcg (0.1 %) nasal spray 10-30 00:00: 00 Yes [id number] 1{spray } Use 1 [place] in each nostril in the morning and 1 [place] in the evening. Use in each nostril as directed [facility] benzonatate (TESSALON PERLES) 100 mg capsule 10-30 00:00: 00 Yes [id number] 100mg Take 1 capsule by mouth every 8 (eight) hours as needed for Cough. [facility] azelastine 137 mcg (0.1 %) nasal spray 10-30 00:00: 00 Yes [id number] 1{spray } Use 1 [place] in each nostril in the morning and 1 [place] in the evening. Use in each nostril as directed [facility] benzonatate (TESSALON PERLES) 100 mg capsule 10-30 00:00: 00 Yes [id number] 100mg Take 1 capsule by mouth every 8 (eight) hours as needed for Cough. [facility] azelastine 137 mcg (0.1 %) nasal spray 10-30 00:00: 00 Yes [id number] 1{spray } Use 1 [place] in each nostril in the morning and 1 [place] in the evening. Use in each nostril as directed [facility] benzonatate (TESSALON PERLES) 100 mg capsule 10-30 00:00: 00 Yes [id number] 100mg Take 1 capsule by mouth every 8 (eight) hours as needed for Cough. [facility] azelastine 137 mcg (0.1 %) nasal spray 10-30 00:00: 00 Yes [id number] 1{spray } Use 1 [place] in each nostril in the morning and 1 [place] in the evening. Use in each nostril as directed [facility] benzonatate (TESSALON PERLES) 100 mg capsule 10-30 00:00: 00 Yes [id number] 100mg Take 1 capsule by mouth every 8 (eight) hours as needed for Cough. [facility] azelastine 137 mcg (0.1 %) nasal spray 10-30 00:00: 00 Yes [id number] 1{spray } Use 1 [place] in each nostril in the morning and 1 [place] in the evening. Use in each nostril as directed [facility] benzonatate (TESSALON PERLES) 100 mg capsule 10-30 00:00: 00 Yes [id number] 100mg Take 1 capsule by mouth every 8 (eight) hours as needed for Cough. [facility] azelastine 137 mcg (0.1 %) nasal spray 10-30 00:00: 00 Yes [id number] 1{spray } Use 1 [place] in each nostril in the morning and 1 [place] in the evening. Use in each nostril as directed [facility] benzonatate (TESSALON PERLES) 100 mg capsule 10-30 00:00: 00 Yes [id number] 100mg Take 1 capsule by mouth every 8 (eight) hours as needed for Cough. [facility] azelastine 137 mcg (0.1 %) nasal spray 10-30 00:00: 00 Yes [id number] 1{spray } Use 1 [place] in each nostril in the morning and 1 [place] in the evening. Use in each nostril as directed [facility] benzonatate (TESSALON PERLES) 100 mg capsule 10-30 00:00: 00 Yes [id number] 100mg Take 1 capsule by mouth every 8 (eight) hours as needed for Cough. [facility] azelastine 137 mcg (0.1 %) nasal spray 10-30 00:00: 00 Yes [id number] 1{spray } Use 1 [place] in each nostril in the morning and 1 [place] in the evening. Use in each nostril as directed [facility] benzonatate (TESSALON PERLES) 100 mg capsule 10-30 00:00: 00 Yes [id number] 100mg Take 1 capsule by mouth every 8 (eight) hours as needed for Cough. [facility] azelastine 137 mcg (0.1 %) nasal spray 10-30 00:00: 00 Yes [id number] 1{spray } Use 1 [place] in each nostril in the morning and 1 [place] in the evening. Use in each nostril as directed [facility] benzonatate (TESSALON PERLES) 100 mg capsule 10-30 00:00: 00 Yes [id number] 100mg Take 1 capsule by mouth every 8 (eight) hours as needed for Cough. [facility] azelastine 137 mcg (0.1 %) nasal spray 10-30 00:00: 00 Yes [id number] 1{spray } Use 1 [place] in each nostril in the morning and 1 [place] in the evening. Use in each nostril as directed [facility] benzonatate (TESSALON PERLES) 100 mg capsule 10-30 00:00: 00 Yes [id number] 100mg Take 1 capsule by mouth every 8 (eight) hours as needed for Cough. [facility] azelastine 137 mcg (0.1 %) nasal spray 10-30 00:00: 00 Yes [id number] 1{spray } Use 1 [place] in each nostril in the morning and 1 [place] in the evening. Use in each nostril as directed [facility] benzonatate (TESSALON PERLES) 100 mg capsule 10-30 00:00: 00 Yes [id number] 100mg Take 1 capsule by mouth every 8 (eight) hours as needed for Cough. [facility] azelastine 137 mcg (0.1 %) nasal spray 10-30 00:00: 00 Yes [id number] 1{spray } Use 1 [place] in each nostril in the morning and 1 [place] in the evening. Use in each nostril as directed [facility] benzonatate (TESSALON PERLES) 100 mg capsule 10-30 00:00: 00 Yes [id number] 100mg Take 1 capsule by mouth every 8 (eight) hours as needed for Cough. [facility] azelastine 137 mcg (0.1 %) nasal spray 10-30 00:00: 00 Yes [id number] 1{spray } Use 1 [place] in each nostril in the morning and 1 [place] in the evening. Use in each nostril as directed [facility] benzonatate (TESSALON PERLES) 100 mg capsule 10-30 00:00: 00 Yes [id number] 100mg Take 1 capsule by mouth every 8 (eight) hours as needed for Cough. [facility] azelastine 137 mcg (0.1 %) nasal spray 10-30 00:00: 00 Yes [id number] 1{spray } Use 1 [place] in each nostril in the morning and 1 [place] in the evening. Use in each nostril as directed [facility] benzonatate (TESSALON PERLES) 100 mg capsule 10-30 00:00: 00 Yes [id number] 100mg Take 1 capsule by mouth every 8 (eight) hours as needed for Cough. [facility] azelastine 137 mcg (0.1 %) nasal spray 10-30 00:00: 00 Yes [id number] 1{spray } Use 1 [place] in each nostril in the morning and 1 [place] in the evening. Use in each nostril as directed [facility] benzonatate (TESSALON PERLES) 100 mg capsule 10-30 00:00: 00 Yes [id number] 100mg Take 1 capsule by mouth every 8 (eight) hours as needed for Cough. [facility] azelastine 137 mcg (0.1 %) nasal spray 10-30 00:00: 00 Yes [id number] 1{spray } Use 1 [place] in each nostril in the morning and 1 [place] in the evening. Use in each nostril as directed [facility] benzonatate (TESSALON PERLES) 100 mg capsule 10-30 00:00: 00 Yes [id number] 100mg Take 1 capsule by mouth every 8 (eight) hours as needed for Cough. [facility] azelastine 137 mcg (0.1 %) nasal spray 10-30 00:00: 00 Yes [id number] 1{spray } Use 1 [place] in each nostril in the morning and 1 [place] in the evening. Use in each nostril as directed [facility] benzonatate (TESSALON PERLES) 100 mg capsule 10-30 00:00: 00 Yes [id number] 100mg Take 1 capsule by mouth every 8 (eight) hours as needed for Cough. [facility] azelastine 137 mcg (0.1 %) nasal spray 10-30 00:00: 00 Yes [id number] 1{spray } Use 1 [place] in each nostril in the morning and 1 [place] in the evening. Use in each nostril as directed [facility] benzonatate (TESSALON PERLES) 100 mg capsule 10-30 00:00: 00 Yes [id number] 100mg Take 1 capsule by mouth every 8 (eight) hours as needed for Cough. [facility] azelastine 137 mcg (0.1 %) nasal spray 10-30 00:00: 00 Yes [id number] 1{spray } Use 1 [place] in each nostril in the morning and 1 [place] in the evening. Use in each nostril as directed [facility] benzonatate (TESSALON PERLES) 100 mg capsule 10-30 00:00: 00 Yes [id number] 100mg Take 1 capsule by mouth every 8 (eight) hours as needed for Cough. [facility] azelastine 137 mcg (0.1 %) nasal spray 10-30 00:00: 00 Yes [id number] 1{spray } Use 1 [place] in each nostril in the morning and 1 [place] in the evening. Use in each nostril as directed [facility] benzonatate (TESSALON PERLES) 100 mg capsule 10-30 00:00: 00 Yes [id number] 100mg Take 1 capsule by mouth every 8 (eight) hours as needed for Cough. [facility] azelastine 137 mcg (0.1 %) nasal spray 10-30 00:00: 00 Yes [id number] 1{spray } Use 1 [place] in each nostril in the morning and 1 [place] in the evening. Use in each nostril as directed [facility] benzonatate (TESSALON PERLES) 100 mg capsule 10-30 00:00: 00 Yes [id number] 100mg Take 1 capsule by mouth every 8 (eight) hours as needed for Cough. [facility] azelastine 137 mcg (0.1 %) nasal spray 10-30 00:00: 00 Yes [id number] 1{spray } Use 1 [place] in each nostril in the morning and 1 [place] in the evening. Use in each nostril as directed [facility] benzonatate (TESSALON PERLES) 100 mg capsule 10-30 00:00: 00 Yes [id number] 100mg Take 1 capsule by mouth every 8 (eight) hours as needed for Cough. [facility] azelastine 137 mcg (0.1 %) nasal spray 10-30 00:00: 00 Yes [id number] 1{spray } Use 1 [place] in each nostril in the morning and 1 [place] in the evening. Use in each nostril as directed [facility] benzonatate (TESSALON PERLES) 100 mg capsule 10-30 00:00: 00 Yes [id number] 100mg Take 1 capsule by mouth every 8 (eight) hours as needed for Cough. [facility] azelastine 137 mcg (0.1 %) nasal spray 10-30 00:00: 00 Yes [id number] 1{spray } Use 1 [place] in each nostril in the morning and 1 [place] in the evening. Use in each nostril as directed [facility] benzonatate (TESSALON PERLES) 100 mg capsule 10-30 00:00: 00 Yes [id number] 100mg Take 1 capsule by mouth every 8 (eight) hours as needed for Cough. [facility] azelastine 137 mcg (0.1 %) nasal spray 10-30 00:00: 00 Yes [id number] 1{spray } Use 1 [place] in each nostril in the morning and 1 [place] in the evening. Use in each nostril as directed [facility] benzonatate (TESSALON PERLES) 100 mg capsule 10-30 00:00: 00 Yes [id number] 100mg Take 1 capsule by mouth every 8 (eight) hours as needed for Cough. [facility] azelastine 137 mcg (0.1 %) nasal spray 10-30 00:00: 00 Yes [id number] 1{spray } Use 1 [place] in each nostril in the morning and 1 [place] in the evening. Use in each nostril as directed [facility] benzonatate (TESSALON PERLES) 100 mg capsule 10-30 00:00: 00 Yes [id number] 100mg Take 1 capsule by mouth every 8 (eight) hours as needed for Cough. [facility] azelastine 137 mcg (0.1 %) nasal spray 10-30 00:00: 00 Yes [id number] 1{spray } Use 1 [place] in each nostril in the morning and 1 [place] in the evening. Use in each nostril as directed [facility] benzonatate (TESSALON PERLES) 100 mg capsule 10-30 00:00: 00 Yes [id number] 100mg Take 1 capsule by mouth every 8 (eight) hours as needed for Cough. [facility] azelastine 137 mcg (0.1 %) nasal spray 10-30 00:00: 00 Yes [id number] 1{spray } Use 1 [place] in each nostril in the morning and 1 [place] in the evening. Use in each nostril as directed [facility] benzonatate (TESSALON PERLES) 100 mg capsule 10-30 00:00: 00 Yes [id number] 100mg Take 1 capsule by mouth every 8 (eight) hours as needed for Cough. [facility] azelastine 137 mcg (0.1 %) nasal spray 10-30 00:00: 00 Yes [id number] 1{spray } Use 1 [place] in each nostril in the morning and 1 [place] in the evening. Use in each nostril as directed [facility] benzonatate (TESSALON PERLES) 100 mg capsule 10-30 00:00: 00 Yes [id number] 100mg Take 1 capsule by mouth every 8 (eight) hours as needed for Cough. [facility] azelastine 137 mcg (0.1 %) nasal spray 10-30 00:00: 00 Yes [id number] 1{spray } Use 1 [place] in each nostril in the morning and 1 [place] in the evening. Use in each nostril as directed [facility] benzonatate (TESSALON PERLES) 100 mg capsule 10-30 00:00: 00 Yes [id number] 100mg Take 1 capsule by mouth every 8 (eight) hours as needed for Cough. [facility] azelastine 137 mcg (0.1 %) nasal spray 10-30 00:00: 00 Yes [id number] 1{spray } Use 1 [place] in each nostril in the morning and 1 [place] in the evening. Use in each nostril as directed [facility] benzonatate (TESSALON PERLES) 100 mg capsule 10-30 00:00: 00 Yes [id number] 100mg Take 1 capsule by mouth every 8 (eight) hours as needed for Cough. [facility] azelastine 137 mcg (0.1 %) nasal spray 10-30 00:00: 00 Yes [id number] 1{spray } Use 1 [place] in each nostril in the morning and 1 [place] in the evening. Use in each nostril as directed [facility] benzonatate (TESSALON PERLES) 100 mg capsule 10-30 00:00: 00 Yes [id number] 100mg Take 1 capsule by mouth every 8 (eight) hours as needed for Cough. [facility] azelastine 137 mcg (0.1 %) nasal spray 10-30 00:00: 00 Yes [id number] 1{spray } Use 1 [place] in each nostril in the morning and 1 [place] in the evening. Use in each nostril as directed [facility] benzonatate (TESSALON PERLES) 100 mg capsule 10-30 00:00: 00 Yes [id number] 100mg Take 1 capsule by mouth every 8 (eight) hours as needed for Cough. [facility] azelastine 137 mcg (0.1 %) nasal spray 10-30 00:00: 00 Yes [id number] 1{spray } Use 1 [place] in each nostril in the morning and 1 [place] in the evening. Use in each nostril as directed [facility] benzonatate (TESSALON PERLES) 100 mg capsule 10-30 00:00: 00 Yes [id number] 100mg Take 1 capsule by mouth every 8 (eight) hours as needed for Cough. [facility] azelastine 137 mcg (0.1 %) nasal spray 10-30 00:00: 00 Yes [id number] 1{spray } Use 1 [place] in each nostril in the morning and 1 [place] in the evening. Use in each nostril as directed [facility] benzonatate (TESSALON PERLES) 100 mg capsule 10-30 00:00: 00 Yes [id number] 100mg Take 1 capsule by mouth every 8 (eight) hours as needed for Cough. [facility] azelastine 137 mcg (0.1 %) nasal spray 10-30 00:00: 00 Yes [id number] 1{spray } Use 1 [place] in each nostril in the morning and 1 [place] in the evening. Use in each nostril as directed [facility] benzonatate (TESSALON PERLES) 100 mg capsule 10-30 00:00: 00 Yes [id number] 100mg Take 1 capsule by mouth every 8 (eight) hours as needed for Cough. [facility] azelastine 137 mcg (0.1 %) nasal spray 10-30 00:00: 00 Yes [id number] 1{spray } Use 1 [place] in each nostril in the morning and 1 [place] in the evening. Use in each nostril as directed [facility] benzonatate (TESSALON PERLES) 100 mg capsule 10-30 00:00: 00 Yes [id number] 100mg Take 1 capsule by mouth every 8 (eight) hours as needed for Cough. [facility] azelastine 137 mcg (0.1 %) nasal spray 10-30 00:00: 00 Yes [id number] 1{spray } Use 1 [place] in each nostril in the morning and 1 [place] in the evening. Use in each nostril as directed [facility] benzonatate (TESSALON PERLES) 100 mg capsule 10-30 00:00: 00 Yes [id number] 100mg Take 1 capsule by mouth every 8 (eight) hours as needed for Cough. [facility] azelastine 137 mcg (0.1 %) nasal spray 10-30 00:00: 00 Yes [id number] 1{spray } Use 1 [place] in each nostril in the morning and 1 [place] in the evening. Use in each nostril as directed [facility] benzonatate (TESSALON PERLES) 100 mg capsule 10-30 00:00: 00 Yes [id number] 100mg Take 1 capsule by mouth every 8 (eight) hours as needed for Cough. [facility] azelastine 137 mcg (0.1 %) nasal spray 10-30 00:00: 00 Yes [id number] 1{spray } Use 1 [place] in each nostril in the morning and 1 [place] in the evening. Use in each nostril as directed [facility] benzonatate (TESSALON PERLES) 100 mg capsule 10-30 00:00: 00 Yes [id number] 100mg Take 1 capsule by mouth every 8 (eight) hours as needed for Cough. [facility] azelastine 137 mcg (0.1 %) nasal spray 10-30 00:00: 00 Yes [id number] 1{spray } Use 1 [place] in each nostril in the morning and 1 [place] in the evening. Use in each nostril as directed [facility] benzonatate (TESSALON PERLES) 100 mg capsule 10-30 00:00: 00 Yes [id number] 100mg Take 1 capsule by mouth every 8 (eight) hours as needed for Cough. [facility] azelastine 137 mcg (0.1 %) nasal spray 10-30 00:00: 00 Yes [id number] 1{spray } Use 1 [place] in each nostril in the morning and 1 [place] in the evening. Use in each nostril as directed [facility] benzonatate (TESSALON PERLES) 100 mg capsule 10-30 00:00: 00 Yes [id number] 100mg Take 1 capsule by mouth every 8 (eight) hours as needed for Cough. [facility] azelastine 137 mcg (0.1 %) nasal spray 10-30 00:00: 00 Yes [id number] 1{spray } Use 1 [place] in each nostril in the morning and 1 [place] in the evening. Use in each nostril as directed [facility] benzonatate (TESSALON PERLES) 100 mg capsule 10-30 00:00: 00 Yes [id number] 100mg Take 1 capsule by mouth every 8 (eight) hours as needed for Cough. [facility] azelastine 137 mcg (0.1 %) nasal spray 10-30 00:00: 00 Yes [id number] 1{spray } Use 1 [place] in each nostril in the morning and 1 [place] in the evening. Use in each nostril as directed [facility] benzonatate (TESSALON PERLES) 100 mg capsule 10-30 00:00: 00 Yes [id number] 100mg Take 1 capsule by mouth every 8 (eight) hours as needed for Cough. [facility] azelastine 137 mcg (0.1 %) nasal spray 10-30 00:00: 00 Yes [id number] 1{spray } Use 1 [place] in each nostril in the morning and 1 [place] in the evening. Use in each nostril as directed [facility] benzonatate (TESSALON PERLES) 100 mg capsule 10-30 00:00: 00 Yes [id number] 100mg Take 1 capsule by mouth every 8 (eight) hours as needed for Cough. [facility] azelastine 137 mcg (0.1 %) nasal spray 10-30 00:00: 00 Yes [id number] 1{spray } Use 1 [place] in each nostril in the morning and 1 [place] in the evening. Use in each nostril as directed [facility] benzonatate (TESSALON PERLES) 100 mg capsule 10-30 00:00: 00 Yes [id number] 100mg Take 1 capsule by mouth every 8 (eight) hours as needed for Cough. [facility] azelastine 137 mcg (0.1 %) nasal spray 10-30 00:00: 00 Yes [id number] 1{spray } Use 1 [place] in each nostril in the morning and 1 [place] in the evening. Use in each nostril as directed [facility] benzonatate (TESSALON PERLES) 100 mg capsule 10-30 00:00: 00 Yes [id number] 100mg Take 1 capsule by mouth every 8 (eight) hours as needed for Cough. [facility] azelastine 137 mcg (0.1 %) nasal spray 10-30 00:00: 00 Yes [id number] 1{spray } Use 1 [place] in each nostril in the morning and 1 [place] in the evening. Use in each nostril as directed [facility] benzonatate (TESSALON PERLES) 100 mg capsule 10-30 00:00: 00 Yes [id number] 100mg Take 1 capsule by mouth every 8 (eight) hours as needed for Cough. [facility] azelastine 137 mcg (0.1 %) nasal spray 10-30 00:00: 00 Yes [id number] 1{spray } Use 1 [place] in each nostril in the morning and 1 [place] in the evening. Use in each nostril as directed [facility] benzonatate (TESSALON PERLES) 100 mg capsule 10-30 00:00: 00 Yes [id number] 100mg Take 1 capsule by mouth every 8 (eight) hours as needed for Cough. [facility] azelastine 137 mcg (0.1 %) nasal spray 10-30 00:00: 00 Yes [id number] 1{spray } Use 1 [place] in each nostril in the morning and 1 [place] in the evening. Use in each nostril as directed [facility] benzonatate (TESSALON PERLES) 100 mg capsule 10-30 00:00: 00 Yes [id number] 100mg Take 1 capsule by mouth every 8 (eight) hours as needed for Cough. [facility] azelastine 137 mcg (0.1 %) nasal spray 10-30 00:00: 00 Yes [id number] 1{spray } Use 1 [place] in each nostril in the morning and 1 [place] in the evening. Use in each nostril as directed [facility] benzonatate (TESSALON PERLES) 100 mg capsule 10-30 00:00: 00 Yes [id number] 100mg Take 1 capsule by mouth every 8 (eight) hours as needed for Cough. [facility] azelastine 137 mcg (0.1 %) nasal spray 10-30 00:00: 00 Yes [id number] 1{spray } Use 1 [place] in each nostril in the morning and 1 [place] in the evening. Use in each nostril as directed [facility] benzonatate (TESSALON PERLES) 100 mg capsule 0 10-30 00:00: 00 Yes [id number] 100mg Take 1 capsule by mouth every 8 (eight) hours as needed for Cough. [facility] azelastine 137 mcg (0.1 %) nasal spray 0 10-30 00:00: 00 Yes [id number] 1{spray } Use 1 [place] in each nostril in the morning and 1 [place] in the evening. Use in each nostril as directed [facility] benzonatate (TESSALON PERLES) 100 mg capsule 10-30 00:00: 00 Yes [id number] 100mg Take 1 capsule by mouth every 8 (eight) hours as needed for Cough. [facility] azelastine 137 mcg (0.1 %) nasal spray 10-30 00:00: 00 Yes [id number] 1{spray } Use 1 [place] in each nostril in the morning and 1 [place] in the evening. Use in each nostril as directed [facility] benzonatate (TESSALON PERLES) 100 mg capsule 10-30 00:00: 00 Yes [id number] 100mg Take 1 capsule by mouth every 8 (eight) hours as needed for Cough. [facility] azelastine 137 mcg (0.1 %) nasal spray 10-30 00:00: 00 Yes [id number] 1{spray } Use 1 [place] in each nostril in the morning and 1 [place] in the evening. Use in each nostril as directed [facility] benzonatate (TESSALON PERLES) 100 mg capsule 10-30 00:00: 00 Yes [id number] 100mg Take 1 capsule by mouth every 8 (eight) hours as needed for Cough. [facility] azelastine 137 mcg (0.1 %) nasal spray 10-30 00:00: 00 Yes [id number] 1{spray } Use 1 [place] in each nostril in the morning and 1 [place] in the evening. Use in each nostril as directed [facility] benzonatate (TESSALON PERLES) 100 mg capsule 10-30 00:00: 00 Yes [id number] 100mg Take 1 capsule by mouth every 8 (eight) hours as needed for Cough. [facility] azelastine 137 mcg (0.1 %) nasal spray 10-30 00:00: 00 Yes [id number] 1{spray } Use 1 [place] in each nostril in the morning and 1 [place] in the evening. Use in each nostril as directed [facility] benzonatate (TESSALON PERLES) 100 mg capsule 10-30 00:00: 00 Yes [id number] 100mg Take 1 capsule by mouth every 8 (eight) hours as needed for Cough. [facility] azelastine 137 mcg (0.1 %) nasal spray 10-30 00:00: 00 Yes [id number] 1{spray } Use 1 [place] in each nostril in the morning and 1 [place] in the evening. Use in each nostril as directed [facility] benzonatate (TESSALON PERLES) 100 mg capsule 10-30 00:00: 00 Yes [id number] 100mg Take 1 capsule by mouth every 8 (eight) hours as needed for Cough. [facility] azelastine 137 mcg (0.1 %) nasal spray 10-30 00:00: 00 Yes [id number] 1{spray } Use 1 [place] in each nostril in the morning and 1 [place] in the evening. Use in each nostril as directed [facility] benzonatate (TESSALON PERLES) 100 mg capsule 10-30 00:00: 00 Yes [id number] 100mg Take 1 capsule by mouth every 8 (eight) hours as needed for Cough. [facility] azelastine 137 mcg (0.1 %) nasal spray 10-30 00:00: 00 Yes [id number] 1{spray } Use 1 [place] in each nostril in the morning and 1 [place] in the evening. Use in each nostril as directed [facility] benzonatate (TESSALON PERLES) 100 mg capsule 10-30 00:00: 00 Yes [id number] 100mg Take 1 capsule by mouth every 8 (eight) hours as needed for Cough. [facility] azelastine 137 mcg (0.1 %) nasal spray 10-30 00:00: 00 Yes [id number] 1{spray } Use 1 [place] in each nostril in the morning and 1 [place] in the evening. Use in each nostril as directed [facility] benzonatate (TESSALON PERLES) 100 mg capsule 10-30 00:00: 00 Yes [id number] 100mg Take 1 capsule by mouth every 8 (eight) hours as needed for Cough. [facility] azelastine 137 mcg (0.1 %) nasal spray 10-30 00:00: 00 Yes [id number] 1{spray } Use 1 [place] in each nostril in the morning and 1 [place] in the evening. Use in each nostril as directed [facility] benzonatate (TESSALON PERLES) 100 mg capsule 10-30 00:00: 00 Yes [id number] 100mg Take 1 capsule by mouth every 8 (eight) hours as needed for Cough. [facility] azelastine 137 mcg (0.1 %) nasal spray 10-30 00:00: 00 Yes [id number] 1{spray } Use 1 [place] in each nostril in the morning and 1 [place] in the evening. Use in each nostril as directed [facility] benzonatate (TESSALON PERLES) 100 mg capsule 10-30 00:00: 00 Yes [id number] 100mg Take 1 capsule by mouth every 8 (eight) hours as needed for Cough. [facility] azelastine 137 mcg (0.1 %) nasal spray 10-30 00:00: 00 Yes [id number] 1{spray } Use 1 [place] in each nostril in the morning and 1 [place] in the evening. Use in each nostril as directed [facility] benzonatate (TESSALON PERLES) 100 mg capsule 10-30 00:00: 00 Yes [id number] 100mg Take 1 capsule by mouth every 8 (eight) hours as needed for Cough. [facility] azelastine 137 mcg (0.1 %) nasal spray 10-30 00:00: 00 Yes [id number] 1{spray } Use 1 [place] in each nostril in the morning and 1 [place] in the evening. Use in each nostril as directed [facility] benzonatate (TESSALON PERLES) 100 mg capsule 0 10-30 00:00: 00 Yes [id number] 100mg Take 1 capsule by mouth every 8 (eight) hours as needed for Cough. [facility] azelastine 137 mcg (0.1 %) nasal spray 10-30 00:00: 00 Yes [id number] 1{spray } Use 1 [place] in each nostril in the morning and 1 [place] in the evening. Use in each nostril as directed [facility] benzonatate (TESSALON PERLES) 100 mg capsule 10-30 00:00: 00 Yes [id number] 100mg Take 1 capsule by mouth every 8 (eight) hours as needed for Cough. [facility] azelastine 137 mcg (0.1 %) nasal spray 10-30 00:00: 00 Yes [id number] 1{spray } Use 1 [place] in each nostril in the morning and 1 [place] in the evening. Use in each nostril as directed [facility] benzonatate (TESSALON PERLES) 100 mg capsule 10-30 00:00: 00 Yes [id number] 100mg Take 1 capsule by mouth every 8 (eight) hours as needed for Cough. [facility] azelastine 137 mcg (0.1 %) nasal spray 10-30 00:00: 00 Yes [id number] 1{spray } Use 1 [place] in each nostril in the morning and 1 [place] in the evening. Use in each nostril as directed [facility] benzonatate (TESSALON PERLES) 100 mg capsule 10-30 00:00: 00 Yes [id number] 100mg Take 1 capsule by mouth every 8 (eight) hours as needed for Cough. [facility] azelastine 137 mcg (0.1 %) nasal spray 10-30 00:00: 00 Yes [id number] 1{spray } Use 1 [place] in each nostril in the morning and 1 [place] in the evening. Use in each nostril as directed [facility] benzonatate (TESSALON PERLES) 100 mg capsule 10-30 00:00: 00 Yes [id number] 100mg Take 1 capsule by mouth every 8 (eight) hours as needed for Cough. [facility] azelastine 137 mcg (0.1 %) nasal spray 10-30 00:00: 00 Yes [id number] 1{spray } Use 1 [place] in each nostril in the morning and 1 [place] in the evening. Use in each nostril as directed [facility] benzonatate (TESSALON PERLES) 100 mg capsule 10-30 00:00: 00 Yes [id number] 100mg Take 1 capsule by mouth every 8 (eight) hours as needed for Cough. [facility] azelastine 137 mcg (0.1 %) nasal spray 10-30 00:00: 00 Yes [id number] 1{spray } Use 1 [place] in each nostril in the morning and 1 [place] in the evening. Use in each nostril as directed [facility] benzonatate (TESSALON PERLES) 100 mg capsule 10-30 00:00: 00 Yes [id number] 100mg Take 1 capsule by mouth every 8 (eight) hours as needed for Cough. [facility] azelastine 137 mcg (0.1 %) nasal spray 10-30 00:00: 00 Yes [id number] 1{spray } Use 1 [place] in each nostril in the morning and 1 [place] in the evening. Use in each nostril as directed [facility] benzonatate (TESSALON PERLES) 100 mg capsule 10-30 00:00: 00 Yes [id number] 100mg Take 1 capsule by mouth every 8 (eight) hours as needed for Cough. [facility] azelastine 137 mcg (0.1 %) nasal spray 10-30 00:00: 00 Yes [id number] 1{spray } Use 1 [place] in each nostril in the morning and 1 [place] in the evening. Use in each nostril as directed [facility] benzonatate (TESSALON PERLES) 100 mg capsule 10-30 00:00: 00 Yes [id number] 100mg Take 1 capsule by mouth every 8 (eight) hours as needed for Cough. [facility] azelastine 137 mcg (0.1 %) nasal spray 10-30 00:00: 00 Yes [id number] 1{spray } Use 1 [place] in each nostril in the morning and 1 [place] in the evening. Use in each nostril as directed [facility] benzonatate (TESSALON PERLES) 100 mg capsule 10-30 00:00: 00 Yes [id number] 100mg Take 1 capsule by mouth every 8 (eight) hours as needed for Cough. [facility] azelastine 137 mcg (0.1 %) nasal spray 10-30 00:00: 00 Yes [id number] 1{spray } Use 1 [place] in each nostril in the morning and 1 [place] in the evening. Use in each nostril as directed [facility] benzonatate (TESSALON PERLES) 100 mg capsule 10-30 00:00: 00 Yes [id number] 100mg Take 1 capsule by mouth every 8 (eight) hours as needed for Cough. [facility] azelastine 137 mcg (0.1 %) nasal spray 10-30 00:00: 00 Yes [id number] 1{spray } Use 1 [place] in each nostril in the morning and 1 [place] in the evening. Use in each nostril as directed [facility] benzonatate (TESSALON PERLES) 100 mg capsule 10-30 00:00: 00 Yes [id number] 100mg Take 1 capsule by mouth every 8 (eight) hours as needed for Cough. [facility] azelastine 137 mcg (0.1 %) nasal spray 10-30 00:00: 00 Yes [id number] 1{spray } Use 1 [place] in each nostril in the morning and 1 [place] in the evening. Use in each nostril as directed [facility] benzonatate (TESSALON PERLES) 100 mg capsule 10-30 00:00: 00 Yes [id number] 100mg Take 1 capsule by mouth every 8 (eight) hours as needed for Cough. [facility] azelastine 137 mcg (0.1 %) nasal spray 10-30 00:00: 00 Yes [id number] 1{spray } Use 1 [place] in each nostril in the morning and 1 [place] in the evening. Use in each nostril as directed [facility] benzonatate (TESSALON PERLES) 100 mg capsule 10-30 00:00: 00 Yes [id number] 100mg Take 1 capsule by mouth every 8 (eight) hours as needed for Cough. [facility] azelastine 137 mcg (0.1 %) nasal spray 10-30 00:00: 00 Yes [id number] 1{spray } Use 1 [place] in each nostril in the morning and 1 [place] in the evening. Use in each nostril as directed [facility] benzonatate (TESSALON PERLES) 100 mg capsule 10-30 00:00: 00 Yes [id number] 100mg Take 1 capsule by mouth every 8 (eight) hours as needed for Cough. [facility] azelastine 137 mcg (0.1 %) nasal spray 10-30 00:00: 00 Yes [id number] 1{spray } Use 1 [place] in each nostril in the morning and 1 [place] in the evening. Use in each nostril as directed [facility] benzonatate (TESSALON PERLES) 100 mg capsule 10-30 00:00: 00 Yes [id number] 100mg Take 1 capsule by mouth every 8 (eight) hours as needed for Cough. [facility] azelastine 137 mcg (0.1 %) nasal spray 10-30 00:00: 00 Yes [id number] 1{spray } Use 1 [place] in each nostril in the morning and 1 [place] in the evening. Use in each nostril as directed [facility] benzonatate (TESSALON PERLES) 100 mg capsule 10-30 00:00: 00 Yes [id number] 100mg Take 1 capsule by mouth every 8 (eight) hours as needed for Cough. [facility] azelastine 137 mcg (0.1 %) nasal spray 10-30 00:00: 00 Yes [id number] 1{spray } Use 1 [place] in each nostril in the morning and 1 [place] in the evening. Use in each nostril as directed [facility] benzonatate (TESSALON PERLES) 100 mg capsule 10-30 00:00: 00 Yes [id number] 100mg Take 1 capsule by mouth every 8 (eight) hours as needed for Cough. [facility] azelastine 137 mcg (0.1 %) nasal spray 10-30 00:00: 00 Yes [id number] 1{spray } Use 1 [place] in each nostril in the morning and 1 [place] in the evening. Use in each nostril as directed [facility] benzonatate (TESSALON PERLES) 100 mg capsule 10-30 00:00: 00 Yes [id number] 100mg Take 1 capsule by mouth every 8 (eight) hours as needed for Cough. [facility] azelastine 137 mcg (0.1 %) nasal spray 10-30 00:00: 00 Yes [id number] 1{spray } Use 1 [place] in each nostril in the morning and 1 [place] in the evening. Use in each nostril as directed [facility] benzonatate (TESSALON PERLES) 100 mg capsule 10-30 00:00: 00 Yes [id number] 100mg Take 1 capsule by mouth every 8 (eight) hours as needed for Cough. [facility] azelastine 137 mcg (0.1 %) nasal spray 10-30 00:00: 00 Yes [id number] 1{spray } Use 1 [place] in each nostril in the morning and 1 [place] in the evening. Use in each nostril as directed [facility] benzonatate (TESSALON PERLES) 100 mg capsule 10-30 00:00: 00 Yes [id number] 100mg Take 1 capsule by mouth every 8 (eight) hours as needed for Cough. [facility] azelastine 137 mcg (0.1 %) nasal spray 10-30 00:00: 00 Yes [id number] 1{spray } Use 1 [place] in each nostril in the morning and 1 [place] in the evening. Use in each nostril as directed [facility] benzonatate (TESSALON PERLES) 100 mg capsule 10-30 00:00: 00 Yes [id number] 100mg Take 1 capsule by mouth every 8 (eight) hours as needed for Cough. [facility] azelastine 137 mcg (0.1 %) nasal spray 10-30 00:00: 00 Yes [id number] 1{spray } Use 1 [place] in each nostril in the morning and 1 [place] in the evening. Use in each nostril as directed [facility] benzonatate (TESSALON PERLES) 100 mg capsule 10-30 00:00: 00 Yes [id number] 100mg Take 1 capsule by mouth every 8 (eight) hours as needed for Cough. [facility] azelastine 137 mcg (0.1 %) nasal spray 10-30 00:00: 00 Yes [id number] 1{spray } Use 1 [place] in each nostril in the morning and 1 [place] in the evening. Use in each nostril as directed [facility] benzonatate (TESSALON PERLES) 100 mg capsule 10-30 00:00: 00 Yes [id number] 100mg Take 1 capsule by mouth every 8 (eight) hours as needed for Cough. [facility] azelastine 137 mcg (0.1 %) nasal spray 10-30 00:00: 00 Yes [id number] 1{spray } Use 1 [place] in each nostril in the morning and 1 [place] in the evening. Use in each nostril as directed [facility] azelastine 137 mcg (0.1 %) nasal spray 10-30 00:00: 00 Yes [id number] 1{spray } Use 1 [place] in each nostril in the morning and 1 [place] in the evening. Use in each nostril as directed [facility] azelastine 137 mcg (0.1 %) nasal spray 10-30 00:00: 00 Yes [id number] 1{spray } Use 1 [place] in each nostril in the morning and 1 [place] in the evening. Use in each nostril as directed [facility] azelastine 137 mcg (0.1 %) nasal spray 10-30 00:00: 00 Yes [id number] 1{spray } Use 1 [place] in each nostril in the morning and 1 [place] in the evening. Use in each nostril as directed [facility] azelastine 137 mcg (0.1 %) nasal spray 10-30 00:00: 00 Yes [id number] 1{spray } Use 1 [place] in each nostril in the morning and 1 [place] in the evening. Use in each nostril as directed [facility] azelastine 137 mcg (0.1 %) nasal spray 10-30 00:00: 00 Yes [id number] 1{spray } Use 1 [place] in each nostril in the morning and 1 [place] in the evening. Use in each nostril as directed [facility] azelastine 137 mcg (0.1 %) nasal spray 10-30 00:00: 00 Yes [id number] 1{spray } Use 1 [place] in each nostril in the morning and 1 [place] in the evening. Use in each nostril as directed [facility] azelastine 137 mcg (0.1 %) nasal spray 10-30 00:00: 00 Yes [id number] 1{spray } Use 1 [place] in each nostril in the morning and 1 [place] in the evening. Use in each nostril as directed [facility] azelastine 137 mcg (0.1 %) nasal spray 10-30 00:00: 00 Yes [id number] 1{spray } Use 1 [place] in each nostril in the morning and 1 [place] in the evening. Use in each nostril as directed [facility] azelastine 137 mcg (0.1 %) nasal spray 10-30 00:00: 00 Yes [id number] 1{spray } Use 1 [place] in each nostril in the morning and 1 [place] in the evening. Use in each nostril as directed [facility] azelastine 137 mcg (0.1 %) nasal spray 10-30 00:00: 00 Yes [id number] 1{spray } Use 1 [place] in each nostril in the morning and 1 [place] in the evening. Use in each nostril as directed [facility] azelastine 137 mcg (0.1 %) nasal spray 10-30 00:00: 00 Yes [id number] 1{spray } Use 1 [place] in each nostril in the morning and 1 [place] in the evening. Use in each nostril as directed [facility] azelastine 137 mcg (0.1 %) nasal spray 10-30 00:00: 00 Yes [id number] 1{spray } Use 1 [place] in each nostril in the morning and 1 [place] in the evening. Use in each nostril as directed [facility] azelastine 137 mcg (0.1 %) nasal spray 10-30 00:00: 00 Yes [id number] 1{spray } Use 1 [place] in each nostril in the morning and 1 [place] in the evening. Use in each nostril as directed [facility] azelastine 137 mcg (0.1 %) nasal spray 10-30 00:00: 00 Yes [id number] 1{spray } Use 1 [place] in each nostril in the morning and 1 [place] in the evening. Use in each nostril as directed [facility] azelastine 137 mcg (0.1 %) nasal spray 10-30 00:00: 00 Yes [id number] 1{spray } Use 1 [place] in each nostril in the morning and 1 [place] in the evening. Use in each nostril as directed [facility] azelastine 137 mcg (0.1 %) nasal spray 10-30 00:00: 00 Yes [id number] 1{spray } Use 1 [place] in each nostril in the morning and 1 [place] in the evening. Use in each nostril as directed [facility] azelastine 137 mcg (0.1 %) nasal spray 10-30 00:00: 00 Yes [id number] 1{spray } Use 1 [place] in each nostril in the morning and 1 [place] in the evening. Use in each nostril as directed [facility] azelastine 137 mcg (0.1 %) nasal spray 10-30 00:00: 00 Yes [id number] 1{spray } Use 1 [place] in each nostril in the morning and 1 [place] in the evening. Use in each nostril as directed [facility] azelastine 137 mcg (0.1 %) nasal spray 10-30 00:00: 00 Yes [id number] 1{spray } Use 1 [place] in each nostril in the morning and 1 [place] in the evening. Use in each nostril as directed [facility] azelastine 137 mcg (0.1 %) nasal spray 10-30 00:00: 00 Yes [id number] 1{spray } Use 1 [place] in each nostril in the morning and 1 [place] in the evening. Use in each nostril as directed [facility] azelastine 137 mcg (0.1 %) nasal spray 10-30 00:00: 00 Yes [id number] 1{spray } Use 1 [place] in each nostril in the morning and 1 [place] in the evening. Use in each nostril as directed [facility] azelastine 137 mcg (0.1 %) nasal spray 10-30 00:00: 00 Yes [id number] 1{spray } Use 1 [place] in each nostril in the morning and 1 [place] in the evening. Use in each nostril as directed [facility] benzonatate (TESSALON PERLES) 100 mg capsule 10-30 00:00: 00 07-09 00:00 :00 No [id number] 100mg Take 1 capsule by mouth every 8 (eight) hours as needed for Cough. [facility] benzonatate (TESSALON PERLES) 100 mg capsule 10-30 00:00: 00 07-09 00:00 :00 No [id number] 100mg Take 1 capsule by mouth every 8 (eight) hours as needed for Cough. [facility] CHLORHEXIDI NE 0.12 % mouthwash 10-27 00:00: 00 Yes [id number] SWISH AND SPIT 15 ML BY MOUTH TWICE DAILY [facility] [place] 0.12 % mouthwash 0 10-27 00:00: 00 Yes [id number] SWISH AND SPIT 15 ML BY MOUTH TWICE DAILY [facility] [place] 0.12 % mouthwash 0 10-27 00:00: 00 Yes [id number] SWISH AND SPIT 15 ML BY MOUTH TWICE DAILY [facility] [place] 0.12 % mouthwash 0 10-27 00:00: 00 Yes [id number] SWISH AND SPIT 15 ML BY MOUTH TWICE DAILY [facility] [place] 0.12 % mouthwash 0 10-27 00:00: 00 Yes [id number] SWISH AND SPIT 15 ML BY M[facility] [place] [facility].12 % [facility]wash 0 10-27 00:00: 00 Yes [id number] SWISH AND SPIT 15 ML BY MOUTH TWICE DAILY [facility] [place] 0.12 % mouthwash 0 10-27 00:00: 00 Yes [id number] SWISH AND SPIT 15 ML BY MOUTH TWICE DAILY [facility] [place] 0.12 % mouthwash 0 10-27 00:00: 00 Yes [id number] SWISH AND SPIT 15 ML BY MOUTH TWICE DAILY [facility] [place] 0.12 % mouthwash 0 10-27 00:00: 00 Yes [id number] SWISH AND SPIT 15 ML BY MOUTH TWICE DAILY [facility] [place] 0.12 % mouthwash 0 10-27 00:00: 00 Yes [id number] SWISH AND SPIT 15 ML BY MOUTH TWICE DAILY [facility] [place] 0.12 % mouthwash 0 10-27 00:00: 00 Yes [id number] SWISH AND SPIT 15 ML BY MOUTH TWICE DAILY [facility] [place] 0.12 % mouthwash 0 10-27 00:00: 00 Yes [id number] SWISH AND SPIT 15 ML BY MOUTH TWICE DAILY [facility] [place] 0.12 % mouthwash 0 10-27 00:00: 00 Yes [id number] SWISH AND SPIT 15 ML BY MOUTH TWICE DAILY [facility] [place] 0.12 % mouthwash 0 10-27 00:00: 00 Yes [id number] SWISH AND SPIT 15 ML BY MOUTH TWICE DAILY [facility] [place] 0.12 % mouthwash 0 10-27 00:00: 00 Yes [id number] SWISH AND SPIT 15 ML BY MOUTH TWICE DAILY [facility] [place] 0.12 % mouthwash 0 10-27 00:00: 00 Yes [id number] SWISH AND SPIT 15 ML BY MOUTH TWICE DAILY [facility] [place] 0.12 % mouthwash 0 10-27 00:00: 00 Yes [id number] SWISH AND SPIT 15 ML BY MOUTH TWICE DAILY [facility] [place] 0.12 % mouthwash 0 10-27 00:00: 00 Yes [id number] SWISH AND SPIT 15 ML BY MOUTH TWICE DAILY [facility] [place] 0.12 % mouthwash 0 10-27 00:00: 00 Yes [id number] SWISH AND SPIT 15 ML BY MOUTH TWICE DAILY [facility] [place] 0.12 % mouthwash 0 10-27 00:00: 00 Yes [id number] SWISH AND SPIT 15 ML BY MOUTH TWICE DAILY [facility] [place] 0.12 % mouthwash 0 10-27 00:00: 00 Yes [id number] SWISH AND SPIT 15 ML BY MOUTH TWICE DAILY [facility] [place] 0.12 % mouthwash 0 10-27 00:00: 00 Yes [id number] SWISH AND SPIT 15 ML BY MOUTH TWICE DAILY [facility] [place] 0.12 % mouthwash 0 10-27 00:00: 00 Yes [id number] SWISH AND SPIT 15 ML BY MOUTH TWICE DAILY [facility] [place] 0.12 % mouthwash 0 10-27 00:00: 00 Yes [id number] SWISH AND SPIT 15 ML BY MOUTH TWICE [facility] [place] 0.12 % mouthwash 0 10-27 00:00: 00 Yes [id number] SWISH AND SPIT 15 ML BY MOUTH TWICE DAILY [facility] [place] 0.12 % mouthwash 10-27 00:00: 00 Yes [id number] SWISH AND SPIT 15 ML BY MOUTH TWICE DAILY [facility] [place] 0.12 % mouthwash 10-27 00:00: 00 Yes [id number] SWISH AND SPIT 15 ML BY MOUTH TWICE DAILY [facility] [place] 0.12 % mouthwash 0 10-27 00:00: 00 Yes [id number] SWISH AND SPIT 15 ML BY MOUTH TWICE DAILY [facility] [place] 0.12 % mouthwash 0 10-27 00:00: 00 Yes [id number] SWISH AND SPIT 15 ML BY MOUTH TWICE DAILY [facility] [place] 0.12 % mouthwash 10-27 00:00: 00 Yes [id number] SWISH AND SPIT 15 ML BY MOUTH TWICE DAILY [facility] [place] 0.12 % mouthwash 0 10-27 00:00: 00 Yes [id number] SWISH AND SPIT 15 ML BY MOUTH TWICE DAILY [facility] [place] 0.12 % mouthwash 0 10-27 00:00: 00 Yes [id number] SWISH AND SPIT 15 ML BY MOUTH TWICE DAILY [facility] [place] 0.12 % mouthwash 0 10-27 00:00: 00 Yes [id number] SWISH AND SPIT 15 ML BY MOUTH TWICE DAILY [facility] [place] 0.12 % mouthwash 0 10-27 00:00: 00 Yes [id number] SWISH AND SPIT 15 ML BY MOUTH TWICE DAILY [facility] [place] 0.12 % mouthwash 0 10-27 00:00: 00 Yes [id number] SWISH AND SPIT 15 ML BY MOUTH TWICE DAILY [facility] [place] 0.12 % mouthwash 0 10-27 00:00: 00 Yes [id number] SWISH AND SPIT 15 ML BY MOUTH TWICE DAILY [facility] [facility].12 [facility] mouthwash 0 10-27 00:00: 00 Yes [id number] SWISH AND SPIT 15 ML BY MOUTH TWICE DAILY [facility] ity [facility] [place] 0.12 % mouthwash 0 10-27 00:00: 00 Yes [id number] SWISH AND SPIT 15 ML BY MOUTH TWICE [facility]ILY [facility] [place] [place] 0.12 % mouthwash 0 10-27 00:00: 00 Yes [id number] SWISH AND SPIT 15 ML BY MOUTH TWICE DAILY [facility] [place] 0.12 % mouthwash 0 10-27 00:00: 00 Yes [id number] SWISH AND SPIT 15 ML BY MOUTH TWICE DAILY [facility] [place] 0.12 % mouthwash 0 10-27 00:00: 00 Yes [id number] SWISH AND SPIT 15 ML BY MOUTH TWICE DAILY [facility] [place] 0.12 % mouthwash 0 10-27 00:00: 00 Yes [id number] SWISH AND SPIT 15 ML BY MOUTH TWICE DAILY [facility] [place] 0.12 % mouthwash 0 10-27 00:00: 00 Yes [id number] SWISH AND SPIT 15 ML BY MOUTH TWICE DAILY [facility] [place] 0.12 % mouthwash 0 10-27 00:00: 00 Yes [id number] SWISH AND SPIT 15 ML BY MOUTH TWICE DAILY [facility] [place] 0.12 % mouthwash 0 10-27 00:00: 00 Yes [id number] SWISH AND SPIT 15 ML BY MOUTH TWICE DAILY [facility] it[facility] [place] 0.12 % mouthwash 0 10-27 00:00: 00 Yes [id number] SWISH AND SPIT 15 ML BY MOUTH TWICE DAILY [facility] [place] 0.12 % mouthwash 0 10-27 00:00: 00 Yes [id number] SWISH AND SPIT 15 ML BY MOUTH TWICE DAILY [facility] [place] 0.12 % mouthwash 0 10-27 00:00: 00 Yes [id number] SWISH AND SPIT 15 ML BY MOUTH TWICE DAILY [facility] [place] 0.12 % mouthwash 10-27 00:00: 00 Yes [id number] SWISH AND SPIT 15 ML BY MOUTH TWICE [facility] [place] 0.12 % mouthwash 0 10-27 00:00: 00 Yes [id number] SWISH AND SPIT 15 ML BY MOUTH TWICE DAILY [facility] [place] 0.12 % mouthwash 0 10-27 00:00: 00 Yes [id number] SWISH AND SPIT 15 ML BY MOUTH TWICE DAILY [facility] [place] 0.12 % mouthwash 0 10-27 00:00: 00 Yes [id number] SWISH AND SPIT 15 ML BY MOUTH TWICE DAILY [facility] [place] 0.12 % mouthwash 0 10-27 00:00: 00 Yes [id number] SWISH AND SPIT 15 ML BY MOUTH TWICE DAILY [facility] [place] 0.12 % mouthwash 0 10-27 00:00: 00 Yes [id number] SWISH AND SPIT 15 ML BY MOUTH TWICE DAILY [facility] [place] 0.12 % mouthwash 2022-0 10-27 00:00: 00 Yes [id number] SWISH AND SPIT 15 ML BY MOUTH TWICE DAILY [facility] [place] 0.12 % mouthwash 0 10-27 00:00: 00 Yes [id number] SWISH AND SPIT 15 ML BY MOUTH TWICE DAILY [facility] [place] 0.12 % mouthwash 0 10-27 00:00: 00 Yes [id number] SWISH AND SPIT 15 ML BY MOUTH TWICE DAILY [facility] [place] 0.12 % mouthwash 0 10-27 00:00: 00 Yes [id number] SWISH AND SPIT 15 ML BY MOUTH TWICE DAILY [facility] [place] 0.12 % mouthwash 0 10-27 00:00: 00 Yes [id number] SWISH AND SPIT 15 ML BY MOUTH TWICE DAILY [facility] [place] 0.12 % mouthwash 0 10-27 00:00: 00 Yes [id number] SWISH AND SPIT 15 ML BY MOUTH TWICE DAILY [facility] [place] 0.12 % mouthwash 0 10-27 00:00: 00 Yes [id number] SWISH AND SPIT 15 ML BY MOUTH TWICE DAILY [facility] [place] 0.12 % mouthwash 0 10-27 00:00: 00 Yes [id number] SWISH AND SPIT 15 ML BY MOUTH TWICE DAILY [facility] [place] 0.12 % mouthwash 0 10-27 00:00: 00 Yes [id number] SWISH AND SPIT 15 ML BY MOUTH TWICE DAILY [facility] [place] 0.12 % mouthwash 0 10-27 00:00: 00 Yes [id number] SWISH AND SPIT 15 ML BY MOUTH TWICE DAILY [facility] [place] 0.12 % mouthwash 2022-0 10-27 00:00: 00 Yes [id number] SWISH AND SPIT 15 ML BY MOUTH TWICE DAILY [facility] [place] 0.12 % mouthwash 2022-0 10-27 00:00: 00 Yes [id number] SWISH AND SPIT 15 ML BY MOUTH TWICE DAILY [facility] [place] 0.12 % mouthwash 0 10-27 00:00: 00 Yes [id number] SWISH AND SPIT 15 ML BY MOUTH TWICE DAILY [facility] [place] 0.12 % mouthwash 0 10-27 00:00: 00 Yes [id number] SWISH AND SPIT 15 ML BY MOUTH TWICE DAILY [facility] [place] 0.12 % mouthwash 0 10-27 00:00: 00 Yes [id number] SWISH AND SPIT 15 ML BY MOUTH TWICE DAILY [facility] [place] 0.12 % mouthwash 0 10-27 00:00: 00 Yes [id number] SWISH AND SPIT 15 ML BY MOUTH TWICE DAILY [facility] [place] 0.12 % mouthwash 0 10-27 00:00: 00 Yes [id number] SWISH AND SPIT 15 ML BY MOUTH TWICE DAILY [facility] [place] 0.12 % mouthwash 0 10-27 00:00: 00 Yes [id number] SWISH AND SPIT 15 ML BY MOUTH TWICE DAILY [facility] [place] 0.12 % mouthwash 0 10-27 00:00: 00 Yes [id number] SWISH AND SPIT 15 ML BY MOUTH TWICE DAILY [facility] [place] 0.12 % mouthwash 10-27 00:00: 00 Yes [id number] SWISH AND SPIT 15 ML BY MOUTH TWICE DAILY [facility] [place] 0.12 % mouthwash 0 10-27 00:00: 00 Yes [id number] SWISH AND SPIT 15 ML BY MOUTH TWICE DAILY [facility] [place] 0.12 % mouthwash 0 10-27 00:00: 00 Yes [id number] SWISH AND SPIT 15 ML BY MOUTH TWICE DAILY [facility] [place] 0.12 % mouthwash 0 10-27 00:00: 00 Yes [id number] SWISH AND SPIT 15 ML BY MOUTH TWICE DAILY [facility] [place] 0.12 % mouthwash 10-27 00:00: 00 Yes [id number] SWISH AND SPIT 15 ML BY MOUTH TWICE DAILY [facility] [place] 0.12 % mouthwash 10-27 00:00: 00 Yes [id number] SWISH AND SPIT 15 ML BY MOUTH TWICE DAILY [facility] [place] 0.12 % mouthwash 10-27 00:00: 00 Yes [id number] SWISH AND SPIT 15 ML BY MOUTH TWICE DAILY [facility] [place] 0.12 % mouthwash 0 10-27 00:00: 00 Yes [id number] SWISH AND SPIT 15 ML BY MOUTH TWICE DAILY [facility] [place] 0.12 % mouthwash 10-27 00:00: 00 Yes [id number] SWISH AND SPIT 15 ML BY MOUTH TWICE DAILY [facility] [place] 0.12 % mouthwash 10-27 00:00: 00 Yes [id number] SWISH AND SPIT 15 ML BY MOUTH TWICE DAILY [facility] [place] 0.12 % mouthwash 0 10-27 00:00: 00 Yes [id number] SWISH AND SPIT 15 ML BY MOUTH TWICE DAILY [facility] [place] 0.12 % mouthwash 10-27 00:00: 00 Yes [id number] SWISH AND SPIT 15 ML BY MOUTH TWICE DAILY [facility] [place] 0.12 % mouthwash 0 10-27 00:00: 00 Yes [id number] SWISH AND SPIT 15 ML BY MOUTH TWICE DAILY [facility] [place] 0.12 % mouthwash 0 10-27 00:00: 00 Yes [id number] SWISH AND SPIT 15 ML BY MOUTH TWICE DAILY [facility] [place] 0.12 % mouthwash 0 10-27 00:00: 00 Yes [id number] SWISH AND SPIT 15 ML BY MOUTH TWICE DAILY [facility] [place] 0.12 % mouthwash 0 10-27 00:00: 00 Yes [id number] SWISH AND SPIT 15 ML BY MOUTH TWICE DAILY [facility] [place] 0.12 % mouthwash 0 10-27 00:00: 00 Yes [id number] SWISH AND SPIT 15 ML BY MOUTH TWICE DAILY [facility] it[facility] [place] 0.12 % mouthwash 0 10-27 00:00: 00 Yes [id number] SWISH AND SPIT 15 ML BY MOUTH TWICE DAILY [facility] [place] 0.12 % mouthwash 0 10-27 00:00: 00 Yes [id number] SWISH AND SPIT 15 ML BY MOUTH TWICE DAILY [facility] [place] 0.12 % mouthwash 0 10-27 00:00: 00 Yes [id number] SWISH AND SPIT 15 ML BY MOUTH TWICE DAILY [facility] [place] 0.12 % mouthwash 0 10-27 00:00: 00 Yes [id number] SWISH AND SPIT 15 ML BY MOUTH TWICE DAILY [facility] [place] 0.12 % mouthwash 0 10-27 00:00: 00 Yes [id number] SWISH AND SPIT 15 ML BY MOUTH TWICE DAILY [facility] [place] 0.12 % mouthwash 0 10-27 00:00: 00 Yes [id number] SWISH AND SPIT 15 ML BY MOUTH TWICE DAILY [facility] [place] 0.12 % mouthwash 2022-0 10-27 00:00: 00 Yes [id number] SWISH AND SPIT 15 ML BY MOUTH TWICE DAILY [facility] [place] 0.12 % mouthwash 0 10-27 00:00: 00 Yes [id number] SWISH AND SPIT 15 ML BY MOUTH TWICE DAILY [facility] [place] 0.12 % mouthwash 2022-0 10-27 00:00: 00 Yes [id number] SWISH AND SPIT 15 ML BY MOUTH TWICE DAILY [facility] it[facility] [place] 0.12 % mouthwash 0 10-27 00:00: 00 Yes [id number] SWISH AND SPIT 15 ML BY MOUTH TWICE DAILY [facility] [place] 0.12 % mouthwash 0 10-27 00:00: 00 Yes [id number] SWISH AND SPIT 15 ML BY MOUTH TWICE DAILY [facility] [place] 0.12 % mouthwash 0 10-27 00:00: 00 Yes [id number] SWISH AND SPIT 15 ML BY MOUTH TWICE DAILY [facility] [place] 0.12 % mouthwash 0 10-27 00:00: 00 Yes [id number] SWISH AND SPIT 15 ML BY MOUTH TWICE DAILY [facility] [place] 0.12 % mouthwash 0 10-27 00:00: 00 Yes [id number] SWISH AND SPIT 15 ML BY MOUTH TWICE DAILY [facility] it[facility] [place] 0.12 % mouthwash 0 10-27 00:00: 00 Yes [id number] SWISH AND SPIT 15 ML BY MOUTH TWICE DAILY [facility] it[facility] [place] 0.12 % mouthwash 0 10-27 00:00: 00 Yes [id number] SWISH AND SPIT 15 ML BY MOUTH TWICE DAILY [facility] [place] 0.12 % mouthwash 0 10-27 00:00: 00 Yes [id number] SWISH AND SPIT 15 ML BY MOUTH TWICE DAILY [facility] [place] 0.12 % mouthwash 0 10-27 00:00: 00 Yes [id number] SWISH AND SPIT 15 ML BY MOUTH TWICE DAILY [facility] [place] 0.12 % mouthwash 0 10-27 00:00: 00 Yes [id number] SWISH AND SPIT 15 ML BY MOUTH TWICE DAILY [facility] [place] 0.12 % mouthwash 0 10-27 00:00: 00 Yes [id number] SWISH AND SPIT 15 ML BY MOUTH TWICE DAILY [facility] [place] 0.12 % mouthwash 10-27 00:00: 00 Yes [id number] SWISH AND SPIT 15 ML BY MOUTH TWICE DAILY [facility] [place] 0.12 % mouthwash 10-27 00:00: 00 Yes [id number] SWISH AND SPIT 15 ML BY MOUTH TWICE DAILY [facility] [place] 0.12 % mouthwash 10-27 00:00: 00 Yes [id number] SWISH AND SPIT 15 ML BY MOUTH TWICE DAILY [facility] [place] 0.12 % mouthwash 10-27 00:00: 00 Yes [id number] SWISH AND SPIT 15 ML BY MOUTH TWICE DAILY Univers [facility] [place] 0.12 % mouthwash 10-27 00:00: 00 Yes [id number] SWISH AND SPIT 15 ML BY MOUTH TWICE DAILY [facility] [place] 0.12 % mouthwash 10-27 00:00: 00 Yes [id number] SWISH AND SPIT 15 ML BY MOUTH TWICE DAILY [facility] [place] 0.12 % mouthwash 10-27 00:00: 00 Yes [id number] SWISH AND SPIT 15 ML BY MOUTH TWICE DAILY [facility] [place] 0.12 % mouthwash 10-27 00:00: 00 08-19 00:00 :00 No [id number] SWISH AND SPIT 15 ML BY MOUTH TWICE DAILY [facility] traMADoL 50 mg tablet 10-27 00:00: 00 11-04 04:59 :00 No [id number] 50mg Take 1 tablet by mouth every 6 (six) hours as needed for Pain (scale 4-6) for up to 7 days. Indication s: chronic pain [facility] traMADoL 50 mg tablet 10-27 00:00: 00 11-04 04:59 :00 No [id number] 50mg Take 1 tablet by mouth every 6 (six) hours as needed for Pain (scale 4-6) for up to 7 days. Ind[facility]: [facility] 2022-0 10-27 00:00: 00 11-04 04:59 :00 No [id number] 50mg Take 1 tablet by mouth every 6 (six) hours as needed for Pain (scale 4-6) for up to 7 days. Indication s: chronic pain [facility] traMADoL 50 mg tablet 0 10-27 00:00: 00 11-04 04:59 :00 No [id number] 50mg Take 1 tablet by mouth every 6 (six) hours as needed for Pain (scale 4-6) for up to 7 days. Indication s: chronic pain [facility] traMADoL 50 mg tablet 0 10-27 00:00: 00 11-04 04:59 :00 No [id number] 50mg Take 1 tablet by mouth every 6 (six) hours as needed for Pain (scale 4-6) for up to 7 days. Indication s: chronic pain [facility] traMADoL 50 mg tablet 0 10-27 00:00: 00 11-04 04:59 :00 No 2745 50mg Take 1 tablet by mouth every 6 (six) hours as needed for Pain (scale 4-6) for up to 7 days. Indication s: chronic pain [facility] traMADoL 50 mg tablet 0 10-27 00:00: 00 11-04 04:59 :00 No [id number] 50mg Take 1 tablet by mouth every 6 (six) hours as needed for Pain (scale 4-6) for up to 7 days. Indication s: chronic pain [facility] traMADoL 50 mg tablet 2022-0 10-27 00:00: 00 11-04 04:59 :00 No [id number] 50mg Take 1 tablet by mouth every 6 (six) hours as needed for Pain (scale 4-6) for up to 7 days. Indication s: chronic pain [facility] traMADoL 50 mg tablet 2022-0 10-27 00:00: 00 11-04 04:59 :00 No [id number] 50mg Take 1 tablet by mouth every 6 (six) hours as needed for Pain (scale 4-6) for up to 7 days. Indication s: chronic pain [facility] lisinopriL (ZESTRIL) 40 mg tablet 2022-0 3-17 00:00: 00 Yes [id number] 40mg Take 1 tablet by mouth in the morning. [facility] lisinopriL (ZESTRIL) 40 mg tablet 2022-0 3-17 00:00: 00 Yes [id number] 40mg Take 1 tablet by mouth in the morning. [facility] lisinopriL (ZESTRIL) 40 mg tablet 2022-0 3-17 00:00: 00 Yes [id number] 40mg Take 1 tablet by mouth in the morning. [facility] lisinopriL (ZESTRIL) 40 mg tablet 2022-0 -17 00:00: 00 Yes [id number] 40mg Take 1 tablet by mouth in the morning. [facility] lisinopriL (ZESTRIL) 40 mg tablet 2022-0 17 00:00: 00 Yes [id number] 40mg Take 1 tablet by mouth in the morning. [facility] lisinopriL (ZESTRIL) 40 mg tablet 2022-0 -17 00:00: 00 Yes [id number] 40mg Take 1 tablet by mouth in the morning. [facility] lisinopriL (ZESTRIL) 40 mg tablet 2022-0 -17 00:00: 00 Yes [id number] 40mg Take 1 tablet by mouth in the morning. [facility] lisinopriL (ZESTRIL) 40 mg tablet 3-0 3-17 00:00: 00 Yes [id number] 40mg Take 1 tablet by mouth in the morning. [facility] lisinopriL (ZESTRIL) 40 mg tablet 3-0 3-17 00:00: 00 Yes [id number] 40mg Take 1 tablet by mouth in the morning. [facility] lisinopriL (ZESTRIL) 40 mg tablet 3-0 3-17 00:00: 00 Yes [id number] 40mg Take 1 tablet by mouth in the morning. [facility] lisinopriL (ZESTRIL) 40 mg tablet 3-0 3-17 00:00: 00 Yes [id number] 40mg Take 1 tablet by mouth in the morning. [facility] lisinopriL (ZESTRIL) 40 mg tablet 3-0 3-17 00:00: 00 Yes [id number] 40mg Take 1 tablet by mouth in the morning. [facility] lisinopriL (ZESTRIL) 40 mg tablet 3-0 3-17 00:00: 00 Yes [id number] 40mg Take 1 tablet by mouth in the morning. [facility] lisinopriL (ZESTRIL) 40 mg tablet 3-0 3-17 00:00: 00 Yes [id number] 40mg Take 1 tablet by mouth in the morning. [facility] lisinopriL (ZESTRIL) 40 mg tablet 3-0 3-17 00:00: 00 Yes [id number] 40mg Take 1 tablet by mouth in the morning. [facility] lisinopriL (ZESTRIL) 40 mg tablet 3-0 3-17 00:00: 00 Yes [id number] 40mg Take 1 tablet by mouth in the morning. [facility] lisinopriL (ZESTRIL) 40 mg tablet 3-0 3-17 00:00: 00 Yes [id number] 40mg Take 1 tablet by mouth in the morning. [facility] lisinopriL (ZESTRIL) 40 mg tablet 3-0 3-17 00:00: 00 Yes [id number] 40mg Take 1 tablet by mouth in the morning. [facility] lisinopriL (ZESTRIL) 40 mg tablet 3-0 3-17 00:00: 00 Yes [id number] 40mg Take 1 tablet by mouth in the morning. [facility] lisinopriL (ZESTRIL) 40 mg tablet 3-0 3-17 00:00: 00 Yes [id number] 40mg Take 1 tablet by mouth in the morning. [facility] lisinopriL (ZESTRIL) 40 mg tablet 3-0 3-17 00:00: 00 Yes [id number] 40mg Take 1 tablet by mouth in the morning. [facility] lisinopriL (ZESTRIL) 40 mg tablet 2022-0 17 00:00: 00 11-27 00:00 :00 No [id number] 40mg Take 1 tablet by mouth in the morning. [facility] lisinopriL (ZESTRIL) 40 mg tablet 2022-0 17 00:00: 00 11-27 00:00 :00 No [id number] 40mg Take 1 tablet by mouth in the morning. [facility] clonazePAM 1 mg tablet 2022-0 3-15 00:00: 00 Yes [id number] 1mg Take 1 tablet by mouth in the morning and 1 tablet at noon and 1 tablet in the evening. [facility] clonazePAM 1 mg tablet 2022-0 3-15 00:00: 00 Yes [id number] 1mg Take 1 tablet by mouth in the morning and 1 tablet at noon and 1 tablet in the evening. [facility] clonazePAM 1 mg tablet 2022-0 3-15 00:00: 00 Yes [id number] 1mg Take 1 tablet by mouth in the morning and 1 tablet at noon and 1 tablet in the evening. [facility] clonazePAM 1 mg tablet 2022-0 3-15 00:00: 00 Yes [id number] 1mg Take 1 tablet by mouth in the morning and 1 tablet at noon and 1 tablet in the evening. [facility] clonazePAM 1 mg tablet 2022-0 3-15 00:00: 00 Yes [id number] 1mg Take 1 tablet by mouth in the morning and 1 tablet at noon and 1 tablet in the evening. [facility] clonazePAM 1 mg tablet 3-0 3-15 00:00: 00 Yes [id number] 1mg Take 1 tablet by mouth in the morning and 1 tablet at noon and 1 tablet in the evening. [facility] clonazePAM 1 mg tablet 3-0 3-15 00:00: 00 Yes [id number] 1mg Take 1 tablet by mouth in the morning and 1 tablet at noon and 1 tablet in the evening. [facility] clonazePAM 1 mg tablet 2023-0 3-15 00:00: 00 Yes [id number] 1mg Take 1 tablet by mouth in the morning and 1 tablet at noon and 1 tablet in the evening. [facility] 2023-0 3-15 00:00: 00 Yes [id number] 1mg Take 1 tablet by mouth in the morning and 1 tablet at noon and 1 tablet in the evening. [facility] clonazePAM 1 mg tablet 2023-0 3-15 00:00: 00 Yes [id number] 1mg Take 1 tablet by mouth in the morning and 1 tablet at noon and 1 tablet in the evening. [facility] clonazePAM 1 mg tablet 3-0 3-15 00:00: 00 Yes [id number] 1mg Take 1 tablet by mouth in the morning and 1 tablet at noon and 1 tablet in the evening. [facility] clonazePAM 1 mg tablet 2023-0 3-15 00:00: 00 Yes [id number] 1mg Take 1 tablet by mouth in the morning and 1 tablet at noon and 1 tablet in the evening. [facility] clonazePAM 1 mg tablet 3-0 3-15 00:00: 00 Yes [id number] 1mg Take 1 tablet by mouth in the morning and 1 tablet at noon and 1 tablet in the evening. [facility] clonazePAM 1 mg tablet 2023-0 3-15 00:00: 00 Yes [id number] 1mg Take 1 tablet by mouth in the morning and 1 tablet at noon and 1 tablet in the evening. [facility] clonazePAM 1 mg tablet 2023-0 3-15 00:00: 00 Yes [id number] 1mg Take 1 tablet by mouth in the morning and 1 tablet at noon and 1 tablet in the evening. [facility] clonazePAM 1 mg tablet 2023-0 3-15 00:00: 00 Yes [id number] 1mg Take 1 tablet by mouth in the morning and 1 tablet at noon and 1 tablet in the evening. [facility] clonazePAM 1 mg tablet 2023-0 3-15 00:00: 00 Yes [id number] 1mg Take 1 tablet by mouth in the morning and 1 tablet at noon and 1 tablet in the evening. [facility] clonazePAM 1 mg tablet 2023-0 3-15 00:00: 00 Yes [id number] 1mg Take 1 tablet by mouth in the morning and 1 tablet at noon and 1 tablet in the evening. [facility] clonazePAM 1 mg tablet 2023-0 3-15 00:00: 00 Yes [id number] 1mg Take 1 tablet by mouth in the morning and 1 tablet at noon and 1 tablet in the evening. [facility] clonazePAM 1 mg tablet 2023-0 3-15 00:00: 00 Yes [id number] 1mg Take 1 tablet by mouth in the morning and 1 tablet at noon and 1 tablet in the evening. [facility] clonazePAM 1 mg tablet 3-0 3-15 00:00: 00 Yes [id number] 1mg Take 1 tablet by mouth in the morning and 1 tablet at noon and 1 tablet in the evening. [facility] clonazePAM 1 mg tablet 3-0 3-15 00:00: 00 Yes [id number] 1mg Take 1 tablet by mouth in the morning and 1 tablet at noon and 1 tablet in the evening. [facility] clonazePAM 1 mg tablet 3-0 3-15 00:00: 00 Yes [id number] 1mg Take 1 tablet by mouth in the morning and 1 tablet at noon and 1 tablet in the evening. [facility] clonazePAM 1 mg tablet 2023-0 3-15 00:00: 00 Yes [id number] 1mg Take 1 tablet by mouth in the morning and 1 tablet at noon and 1 tablet in the evening. [facility] clonazePAM 1 mg tablet 3-0 3-15 00:00: 00 Yes [id number] 1mg Take 1 tablet by mouth in the morning and 1 tablet at noon and 1 tablet in the evening. [facility] clonazePAM 1 mg tablet 2023-0 3-15 00:00: 00 Yes [id number] 1mg Take 1 tablet by mouth in the morning and 1 tablet at noon and 1 tablet in the evening. [facility] clonazePAM 1 mg tablet 2023-0 3-15 00:00: 00 Yes [id number] 1mg Take 1 tablet by mouth in the morning and 1 tablet at noon and 1 tablet in the evening. [facility] clonazePAM 1 mg tablet 2022-0 15 00:00: 00 Yes [id number] 1mg Take 1 tablet by mouth in the morning and 1 tablet at noon and 1 tablet in the evening. [facility] clonazePAM 1 mg tablet 0 15 00:00: 00 Yes [id number] 1mg Take 1 tablet by mouth in the morning and 1 tablet at noon and 1 tablet in the evening. [facility] [facility] clonazePAM 1 mg tablet 2022-0 15 00:00: 00 Yes [id number] 1mg Take 1 tablet by mouth in the morning and 1 tablet at noon and 1 tablet in the evening. [facility] clonazePAM 1 mg tablet 0 15 00:00: 00 Yes [id number] 1mg Take 1 tablet by mouth in the morning and 1 tablet at noon and 1 tablet in the evening. [facility] clonazePAM 1 mg tablet 2022-0 15 00:00: 00 Yes [id number] 1mg Take 1 tablet by mouth in the morning and 1 tablet at noon and 1 tablet in the evening. [facility] clonazePAM 1 mg tablet 2022-0 15 00:00: 00 Yes [id number] 1mg Take 1 tablet by mouth in the morning and 1 tablet at noon and 1 tablet in the evening. [facility] clonazePAM 1 mg tablet 2022-0 15 00:00: 00 15 00:00 :00 No [id number] 1mg Take 1 tablet by mouth in the morning and 1 tablet at noon and 1 tablet in the evening. [facility] NIFEdipine ER 60 mg tablet 10-07 00:00: 00 Yes [id number] 60mg Take 1 tablet by mouth in the morning and 1 tablet in the evening. [facility] NIFEdipine ER 60 mg tablet 10-07 00:00: 00 Yes [id number] 60mg Take 1 tablet by mouth in the morning and 1 tablet in the evening. [facility] NIFEdipine ER 60 mg tablet 10-07 00:00: 00 Yes [id number] 60mg Take 1 tablet by mouth in the morning and 1 tablet in the evening. [facility] NIFEdipine ER 60 mg tablet 2022-0 10-07 00:00: 00 Yes [id number] 60mg Take 1 tablet by mouth in the morning and 1 tablet in the evening. [facility] NIFEdipine ER 60 mg tablet 2022-0 10-07 00:00: 00 Yes [id number] 60mg Take 1 tablet by mouth in the morning and 1 tablet in the evening. [facility] NIFEdipine ER 60 mg tablet 2022-0 10-07 00:00: 00 Yes [id number] 60mg Take 1 tablet by mouth in the morning and 1 tablet in the evening. [facility] NIFEdipine ER 60 mg tablet 0 10-07 00:00: 00 Yes [id number] 60mg Take 1 tablet by mouth in the morning and 1 tablet in the evening. [facility] NIFEdipine ER 60 mg tablet 2022-0 10-07 00:00: 00 Yes [id number] 60mg Take 1 tablet by mouth in the morning and 1 tablet in the evening. [facility] NIFEdipine ER 60 mg tablet 2022-0 10-07 00:00: 00 Yes [id number] 60mg Take 1 tablet by mouth in the morning and 1 tablet in the evening. [facility] NIFEdipine ER 60 mg tablet 2022-0 10-07 00:00: 00 Yes [id number] 60mg Take 1 tablet by mouth in the morning and 1 tablet in the evening. [facility] NIFEdipine ER 60 mg tablet 2022-0 10-07 00:00: 00 Yes [id number] 60mg Take 1 tablet by mouth in the morning and 1 tablet in the evening. [facility] NIFEdipine ER 60 mg tablet 2022-0 10-07 00:00: 00 Yes [id number] 60mg Take 1 tablet by mouth in the morning and 1 tablet in the evening. [facility] NIFEdipine ER 60 mg tablet 2022-0 10-07 00:00: 00 Yes [id number] 60mg Take 1 tablet by mouth in the morning and 1 tablet in the evening. [facility] NIFEdipine ER 60 mg tablet 2022-0 10-07 00:00: 00 Yes [id number] 60mg Take 1 tablet by mouth in the morning and 1 tablet in the evening. [facility] NIFEdipine ER 60 mg tablet 2022-0 10-07 00:00: 00 Yes [id number] 60mg Take 1 tablet by mouth in the morning and 1 tablet in the evening. [facility] NIFEdipine ER 60 mg tablet 2022-0 10-07 00:00: 00 Yes [id number] 60mg Take 1 tablet by mouth in the morning and 1 tablet in the evening. [facility] NIFEdipine ER 60 mg tablet 10-07 00:00: 00 Yes [id number] 60mg Take 1 tablet by mouth in the morning and 1 tablet in the evening. [facility] NIFEdipine ER 60 mg tablet 2022-10-07 00:00: 00 Yes [id number] 60mg Take 1 tablet by mouth in the morning and 1 tablet in the evening. [facility] NIFEdipine ER 60 mg tablet 2022-10-07 00:00: 00 Yes [id number] 60mg Take 1 tablet by mouth in the morning and 1 tablet in the evening. [facility] NIFEdipine ER 60 mg tablet 2022-0 10-07 00:00: 00 Yes [id number] 60mg Take 1 tablet by mouth in the morning and 1 tablet in the evening. [facility] NIFEdipine ER 60 mg tablet 2022-0 10-07 00:00: 00 Yes [id number] 60mg Take 1 tablet by mouth in the morning and 1 tablet in the evening. [facility] NIFEdipine ER 60 mg tablet 2022-0 10-07 00:00: 00 Yes [id number] 60mg Take 1 tablet by mouth in the morning and 1 tablet in the evening. [facility] NIFEdipine ER 60 mg tablet 2022-0 10-07 00:00: 00 Yes [id number] 60mg Take 1 tablet by mouth in the morning and 1 tablet in the evening. [facility] NIFEdipine ER 60 mg tablet 2022-0 10-07 00:00: 00 Yes [id number] 60mg Take 1 tablet by mouth in the morning and 1 tablet in the evening. [facility] NIFEdipine ER 60 mg tablet 2022-0 10-07 00:00: 00 11-27 00:00 :00 No [id number] 60mg Take 1 tablet by mouth in the morning and 1 tablet in the evening. [facility] NIFEdipine ER 60 mg tablet 307 00:00: 00 11-27 00:00 :00 No [id number] 60mg Take 1 tablet by mouth in the morning and 1 tablet in the evening. [facility] glipiZIDE XL 5 mg 24 hr tablet 2022-0 2-20 00:00: 00 Yes [id number] 5mg TAKE 1 TABLET BY MOUTH DAILY WITH BREAKFAST [facility] glipiZIDE XL 5 mg 24 hr tablet 2022-0 2-20 00:00: 00 Yes [id number] 5mg TAKE 1 TABLET BY MOUTH DAILY WITH BREAKFAST [facility] glipiZIDE XL 5 mg 24 hr tablet 2022-0 2-20 00:00: 00 Yes [id number] 5mg TAKE 1 TABLET BY MOUTH DAILY WITH BREAKFAST [facility] glipiZIDE XL 5 mg 24 hr tablet 2022-0 2-20 00:00: 00 Yes [id number] 5mg TAKE 1 TABLET BY MOUTH DAILY WITH BREAKFAST [facility] glipiZIDE XL 5 mg 24 hr tablet 2022-0 2-20 00:00: 00 Yes [id number] 5mg TAKE 1 TABLET BY MOUTH DAILY WITH BREAKFAST [facility] glipiZIDE XL 5 mg 24 hr tablet 2022-0 2-20 00:00: 00 Yes [id number] 5mg TAKE 1 TABLET BY MOUTH DAILY WITH BREAKFAST [facility] glipiZIDE XL 5 mg 24 hr tablet 2022-0 2-20 00:00: 00 Yes [id number] 5mg TAKE 1 TABLET BY MOUTH DAILY WITH BREAKFAST [facility] glipiZIDE XL 5 mg 24 hr tablet 2022-0 2-20 00:00: 00 Yes [id number] 5mg TAKE 1 TABLET BY MOUTH DAILY WITH BREAKFAST [facility] glipiZIDE XL 5 mg 24 hr tablet 2022-0 2-20 00:00: 00 Yes [id number] 5mg TAKE 1 TABLET BY MOUTH DAILY WITH BREAKFAST [facility] glipiZIDE XL 5 mg 24 hr tablet 2022-0 2-20 00:00: 00 Yes [id number] 5mg TAKE 1 TABLET BY MOUTH DAILY WITH BREAKFAST [facility] glipiZIDE XL 5 mg 24 hr tablet 3-0 2-20 00:00: 00 Yes [id number] 5mg TAKE 1 TABLET BY MOUTH DAILY WITH BREAKFAST [facility] glipiZIDE XL 5 mg 24 hr tablet 3-0 2-20 00:00: 00 Yes [id number] 5mg TAKE 1 TABLE[facility]TH [facility] hr tablet 3-0 2-20 00:00: 00 Yes [id number] 5mg TAKE 1 TABLET BY MOUTH DAILY [facility]ST [facility] mg 24 hr tablet 3-0 2-20 00:00: 00 Yes [id number] 5mg TAKE 1 TABLET BY MOUTH DAILY WITH BREAKFAST [facility] glipiZIDE XL 5 mg 24 hr tablet 3-0 2-20 00:00: 00 Yes [id number] 5mg TAKE 1 TABLET BY MOUTH DAILY WITH BREAKFAST [facility] glipiZIDE XL 5 mg 24 hr tablet 3-0 2-20 00:00: 00 Yes [id number] 5mg TAKE 1 TABLET BY MOUTH DAILY WITH BREAKFAST [facility] glipiZIDE XL 5 mg 24 hr tablet 3-0 2-20 00:00: 00 Yes [id number] 5mg TAKE 1 TABLET BY MOUTH DAILY WITH BREAKFAST [facility] glipiZIDE XL 5 mg 24 hr tablet 3-0 2-20 00:00: 00 Yes [id number] 5mg TAKE 1 TABLET BY MOUTH DAILY WITH BREAKFAST [facility] glipiZIDE XL 5 mg 24 hr tablet 3-0 2-20 00:00: 00 Yes [id number] 5mg TAKE 1 TABLET BY MOUTH DAILY WITH BREAKFAST [facility] glipiZIDE XL 5 mg 24 hr tablet 3-0 2-20 00:00: 00 Yes [id number] 5mg TAKE 1 TABLET BY MOUTH DAILY WITH BREAKFAST [facility] glipiZIDE XL 5 mg 24 hr tablet 3-0 2-20 00:00: 00 Yes [id number] 5mg TAKE 1 TABLET BY MOUTH DAILY WITH BREAKFAST [facility] glipiZIDE XL 5 mg 24 hr tablet 3-0 2-20 00:00: 00 Yes [id number] 5mg TAKE 1 TABLET BY MOUTH DAILY WITH BREAKFAST [facility] glipiZIDE XL 5 mg 24 hr tablet 3-0 2-20 00:00: 00 Yes [id number] 5mg TAKE 1 TABLET BY MOUTH DAILY WITH BREAKFAST [facility] glipiZIDE XL 5 mg 24 hr tablet 3-0 2-20 00:00: 00 Yes [id number] 5mg TAKE 1 TABLET BY MOUTH DAILY WITH BREAKFAST [facility] glipiZIDE XL 5 mg 24 hr tablet 3-0 2-20 00:00: 00 Yes [id number] 5mg TAKE 1 TABLET BY MOUTH DAILY WITH BREAKFAST [facility] glipiZIDE XL 5 mg 24 hr tablet 3-0 2-20 00:00: 00 Yes [id number] 5mg TAKE 1 TABLET BY MOUTH DAILY WITH BREAKFAST [facility] glipiZIDE XL 5 mg 24 hr tablet 3-0 2-20 00:00: 00 Yes [id number] 5mg TAKE 1 TABLET BY MOUTH DAILY WITH BREAKFAST [facility] glipiZIDE XL 5 mg 24 hr tablet 3-0 2-20 00:00: 00 Yes [id number] 5mg TAKE 1 TABLET BY MOUTH DAILY WITH BREAKFAST [facility] glipiZIDE XL 5 mg 24 hr tablet 3-0 2-20 00:00: 00 Yes [id number] 5mg TAKE 1 TABLET BY MOUTH DAILY WITH BREAKFAST [facility] glipiZIDE XL 5 mg 24 hr tablet 3-0 2-20 00:00: 00 Yes [id number] 5mg TAKE 1 TABLET BY MOUTH DAILY WITH BREAKFAST [facility] glipiZIDE XL 5 mg 24 hr tablet 3-0 2-20 00:00: 00 Yes [id number] 5mg TAKE 1 TABLET BY MOUTH DAILY WITH BREAKFAST [facility] glipiZIDE XL 5 mg 24 hr tablet 3-0 2-20 00:00: 00 Yes [id number] 5mg TAKE 1 TABLET BY MOUTH DAILY WITH BREAKFAST [facility] glipiZIDE XL 5 mg 24 hr tablet 3-0 2-20 00:00: 00 Yes [id number] 5mg TAKE 1 TABLET BY MOUTH DAILY WITH BREAKFAST [facility] glipiZIDE XL 5 mg 24 hr tablet 3-0 2-20 00:00: 00 Yes [id number] 5mg TAKE 1 TABLET BY MOUTH DAILY WITH BREAKFAST [facility] glipiZIDE XL 5 mg 24 hr tablet 3-0 2-20 00:00: 00 Yes [id number] 5mg TAKE 1 TABLET BY MOUTH DAILY WITH BREAKFAST [facility] glipiZIDE XL 5 mg 24 hr tablet 3-0 2-20 00:00: 00 Yes [id number] 5mg TAKE 1 TABLET BY MOUTH DAILY WITH BREAKFAST [facility] glipiZIDE XL 5 mg 24 hr tablet 3-0 2-20 00:00: 00 Yes [id number] 5mg TAKE 1 TABLET BY MOUTH DAILY WITH BREAKFAST [facility] glipiZIDE XL 5 mg 24 hr tablet 3-0 2-20 00:00: 00 Yes [id number] 5mg TAKE 1 TABLET BY MOUTH DAILY WITH BREAKFAST [facility] glipiZIDE XL 5 mg 24 hr tablet 3-0 2-20 00:00: 00 Yes [id number] 5mg TAKE 1 TABLET BY MOUTH DAILY WITH BREAKFAST [facility] glipiZIDE XL 5 mg 24 hr tablet 3-0 2-20 00:00: 00 Yes [id number] 5mg TAKE 1 TABLET BY MOUTH DAILY WITH BREAKFAST [facility] glipiZIDE XL 5 mg 24 hr tablet 3-0 2-20 00:00: 00 Yes [id number] 5mg TAKE 1 TABLET BY MOUTH DAILY WITH BREAKFAST [facility] glipiZIDE XL 5 mg 24 hr tablet 3-0 2-20 00:00: 00 Yes [id number] 5mg TAKE 1 TABLET BY MOUTH DAILY WITH BREAKFAST [facility] glipiZIDE XL 5 mg 24 hr tablet 3-0 2-20 00:00: 00 Yes [id number] 5mg TAKE 1 TABLET BY MOUTH DAILY WITH BREAKFAST [facility] glipiZIDE XL 5 mg 24 hr tablet 3-0 2-20 00:00: 00 Yes [id number] 5mg TAKE 1 TABLET BY MOUTH DAILY WITH BREAKFAST [facility] glipiZIDE XL 5 mg 24 hr tablet 3-0 2-20 00:00: 00 Yes [id number] 5mg TAKE 1 TABLET BY MOUTH DAILY WITH BREAKFAST [facility] glipiZIDE XL 5 mg 24 hr tablet 3-0 2-20 00:00: 00 Yes [id number] 5mg TAKE 1 TABLET BY MOUTH DAILY WITH [facility]ST [facility] mg 24 hr tablet 3-0 2-20 00:00: 00 Yes [id number] 5mg TAKE 1 TABLET BY MOUTH DAILY WITH BREAKFAST [facility] glipiZIDE XL 5 mg 24 hr tablet 3-0 2-20 00:00: 00 Yes [id number] 5mg TAKE 1 TABLET BY MOUTH DAILY WITH BREAKFAST [facility] glipiZIDE XL 5 mg 24 hr tablet 3-0 2-20 00:00: 00 Yes [id number] 5mg TAKE 1 TABLET BY MOUTH DAILY WITH BREAKFAST [facility] glipiZIDE XL 5 mg 24 hr tablet 3-0 2-20 00:00: 00 Yes [id number] 5mg TAKE 1 TABLET BY MOUTH DAILY WITH BREAKFAST [facility] glipiZIDE XL 5 mg 24 hr tablet 3-0 2-20 00:00: 00 Yes [id number] 5mg TAKE 1 TABLET BY MOUTH DAILY WITH BREAKFAST [facility] glipiZIDE XL 5 mg 24 hr tablet 3-0 2-20 00:00: 00 Yes [id number] 5mg TAKE 1 TABLET BY MOUTH DAILY WITH BREAKFAST [facility] glipiZIDE XL 5 mg 24 hr tablet 3-0 2-20 00:00: 00 Yes [id number] 5mg TAKE 1 TABLET BY MOUTH DAILY WITH BREAKFAST [facility] glipiZIDE XL 5 mg 24 hr tablet 3-0 2-20 00:00: 00 Yes [id number] 5mg TAKE 1 TABLET BY MOUTH DAILY WITH BREAKFAST [facility] glipiZIDE XL 5 mg 24 hr tablet 3-0 2-20 00:00: 00 Yes [id number] 5mg TAKE 1 TABLET BY MOUTH DAILY WITH BREAKFAST [facility] glipiZIDE XL 5 mg 24 hr tablet 3-0 2-20 00:00: 00 Yes [id number] 5mg TAKE 1 TABLET BY MOUTH DAILY WITH BREAKFAST [facility] 5 mg 24 hr tablet 3-0 2-20 00:00: 00 Yes [id number] 5mg TAKE 1 TABLET BY MOUTH DAILY WITH BREAKFAST [facility] gl[facility] 5 mg 24 hr tablet 3-0 2-20 00:00: 00 Yes [id number] 5mg TAKE 1 TABLET BY MOUTH DAILY WITH BREAKFAST [facility] 5 mg 24 hr tablet 3-0 2-20 00:00: 00 Yes [id number] 5mg TAKE 1 TABLET BY MOUTH DAILY WITH BREAKFAST [facility] glip[facility] XL 5 mg 24 hr tablet 3-0 2-20 00:00: 00 Yes [id number] 5mg TAKE 1 TABLET BY MOUTH DAILY WITH BREAKFAST [facility] glipi[facility] XL 5 mg 24 hr tablet 3-0 2-20 00:00: 00 Yes [id number] 5mg TAKE 1 TABLET BY MOUTH DAILY WITH BREAKFAST [facility] glipiZ[facility] XL 5 mg 24 hr tablet 3-0 2-20 00:00: 00 Yes [id number] 5mg TAKE 1 TABLET BY MOUTH DAILY WITH BREAKFAST [facility] glipiZIDE XL 5 mg 24 hr tablet 3-0 2-20 00:00: 00 Yes [id number] 5mg TAKE 1 TABLET BY MOUTH DAILY WITH BREAKFAST [facility] glipiZIDE XL 5 mg 24 hr tablet 3-0 2-20 00:00: 00 Yes [id number] 5mg TAKE 1 TABLET BY MOUTH DAILY WITH BREAKFAST [facility] glip[facility] XL 5 mg 24 hr tablet 3-0 2-20 00:00: 00 Yes [id number] 5mg TAKE 1 TABLET BY MOUTH DAILY WITH BREAKFAST [facility] glipi[facility] XL 5 mg 24 hr tablet 3-0 2-20 00:00: 00 Yes [id number] 5mg TAKE 1 TABLET BY MOUTH DAILY WITH BREAKFAST [facility] glipi[facility] XL 5 mg 24 hr tablet 3-0 2-20 00:00: 00 Yes [id number] 5mg TAKE 1 TABLET BY MOUTH DAILY WITH BREAKFAST [facility] glipiZIDE XL 5 mg 24 hr tablet 2-20 00:00: 00 Yes [id number] 5mg TAKE 1 TABLET BY MOUTH DAILY WITH BREAKFAST [facility] glipiZIDE XL 5 mg 24 hr tablet 0 2-20 00:00: 00 Yes [id number] 5mg TAKE 1 TABLET BY MOUTH DAILY WITH BREAKFAST [facility] glipiZIDE XL 5 mg 24 hr tablet 0 2-20 00:00: 00 Yes [id number] 5mg TAKE 1 TABLET BY MOUTH DAILY WITH BREAKFAST [facility] glipiZIDE XL 5 mg 24 hr tablet 2-20 00:00: 00 Yes [id number] 5mg TAKE 1 TABLET BY MOUTH DAILY WITH BREAKFAST [facility] glipiZIDE XL 5 mg 24 hr tablet 2-20 00:00: 00 Yes [id number] 5mg TAKE 1 TABLET BY MOUTH DAILY WITH BREAKFAST [facility] glipiZIDE XL 5 mg 24 hr tablet 220 00:00: 00 Yes [id number] 5mg TAKE 1 TABLET BY MOUTH DAILY WITH BREAKFAST [facility] glipiZIDE XL 5 mg 24 hr tablet 20 00:00: 00 02-25 00:00 :00 No [id number] 5mg TAKE 1 TABLET BY MOUTH DAILY WITH BREAKFAST [facility] Mometasone- Formoterol (DULERA) 200-5 mcg/actuati on inhaler 09-10 00:00: 00 Yes [id number] 2{puff} Inhale 2 Puffs in the morning and 2 Puffs in the evening. [facility] albuterol 90 mcg/actuati on inhaler 09-10 00:00: 00 Yes [id number] INHALE 2 PUFFS BY MOUTH EVERY 6 HOURS NEEDED FOR WHEEZING, SHORTNESS OF BREATH OR BRONCHOSPA [facility] nystatin 100,000 unit/mL suspension 09-10 00:00: 00 Yes [id number] Take 5 mL by mouth 4 (four) times daily. [facility] Mometasone- Formoterol (DULERA) 200-5 mcg/actuati on inhaler 2- 00:00: 00 Yes [id number] 2{puff} Inhale 2 Puffs in the morning and 2 Puffs in the evening. [facility] albuterol 90 mcg/actuati on inhaler 2- 00:00: 00 Yes [id number] INHALE 2 PUFFS BY MOUTH EVERY 6 HOURS NEEDED FOR WHEEZING, SHORTNESS OF BREATH OR BRONCHOSPA SMS [facility] nystatin 100,000 unit/mL suspension 2- 00:00: 00 Yes [id number] Take 5 mL by mouth 4 (four) times daily. [facility] Mometasone- Formoterol (DULERA) 200-5 mcg/actuati on inhaler 2- 00:00: 00 Yes [id number] 2{puff} Inhale 2 Puffs in the morning and 2 Puffs in the evening. [facility] albuterol 90 mcg/actuati on inhaler 2 00:00: 00 Yes [id number] INHALE 2 PUFFS BY MOUTH EVERY 6 HOURS NEEDED FOR WHEEZING, SHORTNESS OF BREATH OR BRONCHOSPA SMS [facility] nystatin 100,000 unit/mL suspension 2 00:00: 00 Yes [id number] Take 5 mL by mouth 4 (four) times daily. [facility] Mometasone- Formoterol (DULERA) 200-5 mcg/actuati on inhaler 2- 00:00: 00 Yes [id number] 2{puff} Inhale 2 Puffs in the morning and 2 Puffs in the evening. [facility] albuterol 90 mcg/actuati on inhaler 2- 00:00: 00 Yes [id number] INHALE 2 PUFFS BY MOUTH EVERY 6 HOURS NEEDED FOR WHEEZING, SHORTNESS OF BREATH OR BRONCHOSPA [facility] nystatin 100,000 unit/mL suspension 2- 00:00: 00 Yes [id number] Take 5 mL by mouth 4 (four) times daily. [facility] Mometasone- Formoterol (DULERA) 200-5 mcg/actuati on inhaler 2- 00:00: 00 Yes [id number] 2{puff} Inhale 2 Puffs in the morning and 2 Puffs in the evening. [facility] albuterol 90 mcg/actuati on inhaler 2- 00:00: 00 Yes [id number] INHALE 2 PUFFS BY MOUTH EVERY 6 HOURS NEEDED FOR WHEEZING, SHORTNESS OF BREATH OR BRONCHOSPA SMS [facility] nystatin 100,000 unit/mL suspension 2- 00:00: 00 Yes [id number] Take 5 mL by mouth 4 (four) times daily. [facility] Mometasone- Formoterol (DULERA) 200-5 mcg/actuati on inhaler 2- 00:00: 00 Yes [id number] 2{puff} Inhale 2 Puffs in the morning and 2 Puffs in the evening. [facility] albuterol 90 mcg/actuati on inhaler 2 00:00: 00 Yes [id number] INHALE 2 PUFFS BY MOUTH EVERY 6 HOURS NEEDED FOR WHEEZING, SHORTNESS OF BREATH OR BRONCHOSPA SMS [facility] nystatin 100,000 unit/mL suspension 2- 00:00: 00 Yes [id number] Take 5 mL by mouth 4 (four) times daily. [facility] Mometasone- Formoterol (DULERA) 200-5 mcg/actuati on inhaler 2- 00:00: 00 Yes [id number] 2{puff} Inhale 2 Puffs in the morning and 2 Puffs in the evening. [facility] albuterol 90 mcg/actuati on inhaler 2- 00:00: 00 Yes [id number] INHALE 2 PUFFS BY MOUTH EVERY 6 HOURS NEEDED FOR WHEEZING, SHORTNESS OF BREATH OR BRONCHOSPA SMS [facility] nystatin 100,000 unit/mL suspension 2 00:00: 00 Yes [id number] Take 5 mL by mouth 4 (four) times daily. [facility] Mometasone- Formoterol (DULERA) 200-5 mcg/actuati on inhaler 2 00:00: 00 Yes [id number] 2{puff} Inhale 2 Puffs in the morning and 2 Puffs in the evening. [facility] albuterol 90 mcg/actuati on inhaler 09-10 00:00: 00 Yes [id number] INHALE 2 PUFFS BY MOUTH EVERY 6 HOURS NEEDED FOR WHEEZING, SHORTNESS OF BREATH OR BRONCHOSPA [facility] nystatin 100,000 unit/mL suspension 09-10 00:00: 00 Yes [id number] Take 5 mL by mouth 4 (four) times daily. [facility] Mometasone- Formoterol (DULERA) 200-5 mcg/actuati on inhaler 09-10 00:00: 00 Yes [id number] 2{puff} Inhale 2 Puffs in the morning and 2 Puffs in the evening. [facility] albuterol 90 mcg/actuati on inhaler 09-10 00:00: 00 Yes [id number] INHALE 2 PUFFS BY MOUTH EVERY 6 HOURS NEEDED FOR WHEEZING, SHORTNESS OF BREATH OR BRONCHOSPA [facility] nystatin 100,000 unit/mL suspension 09-10 00:00: 00 Yes [id number] Take 5 mL by mouth 4 (four) times daily. [facility] Mometasone- Formoterol (DULERA) 200-5 mcg/actuati on inhaler 2- 00:00: 00 Yes [id number] 2{puff} Inhale 2 Puffs in the morning and 2 Puffs in the evening. [facility] albuterol 90 mcg/actuati on inhaler 2- 00:00: 00 Yes [id number] INHALE 2 PUFFS BY MOUTH EVERY 6 HOURS NEEDED FOR WHEEZING, SHORTNESS OF BREATH OR BRONCHOSPA [facility] nystatin 100,000 unit/mL suspension 2- 00:00: 00 Yes [id number] Take 5 mL by mouth 4 (four) times daily. [facility] Mometasone- Formoterol (DULERA) 200-5 mcg/actuati on inhaler 2- 00:00: 00 Yes [id number] 2{puff} Inhale 2 Puffs in the morning and 2 Puffs in the evening. [facility] albuterol 90 mcg/actuati on inhaler 2- 00:00: 00 Yes [id number] INHALE 2 PUFFS BY MOUTH EVERY 6 HOURS NEEDED FOR WHEEZING, SHORTNESS OF BREATH OR BRONCHOSPA [facility] nystatin 100,000 unit/mL suspension 2 00:00: 00 Yes [id number] Take 5 mL by mouth 4 (four) times daily. [facility] Mometasone- Formoterol (DULERA) 200-5 mcg/actuati on inhaler 2- 00:00: 00 Yes [id number] 2{puff} Inhale 2 Puffs in the morning and 2 Puffs in the evening. [facility] albuterol 90 mcg/actuati on inhaler 2- 00:00: 00 Yes [id number] INHALE 2 PUFFS BY MOUTH EVERY 6 HOURS NEEDED FOR WHEEZING, SHORTNESS OF BREATH OR BRONCHOSPA [facility] nystatin 100,000 unit/mL suspension 2- 00:00: 00 Yes [id number] Take 5 mL by mouth 4 (four) times daily. [facility] Mometasone- Formoterol (DULERA) 200-5 mcg/actuati on inhaler 2- 00:00: 00 Yes [id number] 2{puff} Inhale 2 Puffs in the morning and 2 Puffs in the evening. [facility] albuterol 90 mcg/actuati on inhaler 2- 00:00: 00 Yes [id number] INHALE 2 PUFFS BY MOUTH EVERY 6 HOURS NEEDED FOR WHEEZING, SHORTNESS OF BREATH OR BRONCHOSPA SMS [facility] nystatin 100,000 unit/mL suspension 2- 00:00: 00 Yes [id number] Take 5 mL by mouth 4 (four) times daily. [facility] Mometasone- Formoterol (DULERA) 200-5 mcg/actuati on inhaler 2- 00:00: 00 Yes [id number] 2{puff} Inhale 2 Puffs in the morning and 2 Puffs in the evening. [facility] albuterol 90 mcg/actuati on inhaler 2 00:00: 00 Yes [id number] INHALE 2 PUFFS BY MOUTH EVERY 6 HOURS NEEDED FOR WHEEZING, SHORTNESS OF BREATH OR BRONCHOSPA SMS [facility] nystatin 100,000 unit/mL suspension 2 00:00: 00 Yes [id number] Take 5 mL by mouth 4 (four) times daily. [facility] Mometasone- Formoterol (DULERA) 200-5 mcg/actuati on inhaler 2 00:00: 00 Yes [id number] 2{puff} Inhale 2 Puffs in the morning and 2 Puffs in the evening. [facility] albuterol 90 mcg/actuati on inhaler 2- 00:00: 00 Yes [id number] INHALE 2 PUFFS BY MOUTH EVERY 6 HOURS NEEDED FOR WHEEZING, SHORTNESS OF BREATH OR BRONCHOSPA [facility] nystatin 100,000 unit/mL suspension 2- 00:00: 00 Yes [id number] Take 5 mL by mouth 4 (four) times daily. [facility] Mometasone- Formoterol (DULERA) 200-5 mcg/actuati on inhaler 2- 00:00: 00 Yes [id number] 2{puff} Inhale 2 Puffs in the morning and 2 Puffs in the evening. [facility] albuterol 90 mcg/actuati on inhaler 2 00:00: 00 Yes [id number] INHALE 2 PUFFS BY MOUTH EVERY 6 HOURS NEEDED FOR WHEEZING, SHORTNESS OF BREATH OR BRONCHOSPA SMS [facility] nystatin 100,000 unit/mL suspension 2 00:00: 00 Yes [id number] Take 5 mL by mouth 4 (four) times daily. [facility] Mometasone- Formoterol (DULERA) 200-5 mcg/actuati on inhaler 2 00:00: 00 Yes [id number] 2{puff} Inhale 2 Puffs in the morning and 2 Puffs in the evening. [facility] albuterol 90 mcg/actuati on inhaler 09-10 00:00: 00 Yes [id number] INHALE 2 PUFFS BY MOUTH EVERY 6 HOURS NEEDED FOR WHEEZING, SHORTNESS OF BREATH OR BRONCHOSPA SMS [facility] nystatin 100,000 unit/mL suspension 09-10 00:00: 00 Yes [id number] Take 5 mL by mouth 4 (four) times daily. [facility] Mometasone- Formoterol (DULERA) 200-5 mcg/actuati on inhaler 09-10 00:00: 00 Yes [id number] 2{puff} Inhale 2 Puffs in the morning and 2 Puffs in the evening. [facility] albuterol 90 mcg/actuati on inhaler 2 00:00: 00 Yes [id number] INHALE 2 PUFFS BY MOUTH EVERY 6 HOURS NEEDED FOR WHEEZING, SHORTNESS OF BREATH OR BRONCHOSPA SMS [facility] nystatin 100,000 unit/mL suspension 2- 00:00: 00 Yes [id number] Take 5 mL by mouth 4 (four) times daily. [facility] Mometasone- Formoterol (DULERA) 200-5 mcg/actuati on inhaler 2- 00:00: 00 Yes [id number] 2{puff} Inhale 2 Puffs in the morning and 2 Puffs in the evening. [facility] albuterol 90 mcg/actuati on inhaler 2- 00:00: 00 Yes [id number] INHALE 2 PUFFS BY MOUTH EVERY 6 HOURS NEEDED FOR WHEEZING, SHORTNESS OF BREATH OR BRONCHOSPA SMS [facility] nystatin 100,000 unit/mL suspension 2- 00:00: 00 Yes [id number] Take 5 mL by mouth 4 (four) times daily. [facility] Mometasone- Formoterol (DULERA) 200-5 mcg/actuati on inhaler 2- 00:00: 00 Yes [id number] 2{puff} Inhale 2 Puffs in the morning and 2 Puffs in the evening. [facility] albuterol 90 mcg/actuati on inhaler 2 00:00: 00 Yes [id number] INHALE 2 PUFFS BY MOUTH EVERY 6 HOURS NEEDED FOR WHEEZING, SHORTNESS OF BREATH OR BRONCHOSPA SMS [facility] nystatin 100,000 unit/mL suspension 2 00:00: 00 Yes [id number] Take 5 mL by mouth 4 (four) times daily. [facility] Mometasone- Formoterol (DULERA) 200-5 mcg/actuati on inhaler 2- 00:00: 00 Yes [id number] 2{puff} Inhale 2 Puffs in the morning and 2 Puffs in the evening. [facility] albuterol 90 mcg/actuati on inhaler 2- 00:00: 00 Yes [id number] INHALE 2 PUFFS BY MOUTH EVERY 6 HOURS NEEDED FOR WHEEZING, SHORTNESS OF BREATH OR BRONCHOSPA SMS [facility] nystatin 100,000 unit/mL suspension 2- 00:00: 00 Yes [id number] Take 5 mL by mouth 4 (four) times daily. [facility] Mometasone- Formoterol (DULERA) 200-5 mcg/actuati on inhaler 2- 00:00: 00 Yes [id number] 2{puff} Inhale 2 Puffs in the morning and 2 Puffs in the evening. [facility] albuterol 90 mcg/actuati on inhaler 2- 00:00: 00 Yes [id number] INHALE 2 PUFFS BY MOUTH EVERY 6 HOURS NEEDED FOR WHEEZING, SHORTNESS OF BREATH OR BRONCHOSPA SMS [facility] nystatin 100,000 unit/mL suspension 2- 00:00: 00 Yes [id number] Take 5 mL by mouth 4 (four) times daily. [facility] Mometasone- Formoterol (DULERA) 200-5 mcg/actuati on inhaler 2- 00:00: 00 Yes [id number] 2{puff} Inhale 2 Puffs in the morning and 2 Puffs in the evening. [facility] albuterol 90 mcg/actuati on inhaler 2 00:00: 00 Yes [id number] INHALE 2 PUFFS BY MOUTH EVERY 6 HOURS NEEDED FOR WHEEZING, SHORTNESS OF BREATH OR BRONCHOSPA SMS [facility] nystatin 100,000 unit/mL suspension 2 00:00: 00 Yes [id number] Take 5 mL by mouth 4 (four) times daily. [facility] Mometasone- Formoterol (DULERA) 200-5 mcg/actuati on inhaler 2 00:00: 00 Yes [id number] 2{puff} Inhale 2 Puffs in the morning and 2 Puffs in the evening. [facility] albuterol 90 mcg/actuati on inhaler 2- 00:00: 00 Yes [id number] INHALE 2 PUFFS BY MOUTH EVERY 6 HOURS NEEDED FOR WHEEZING, SHORTNESS OF BREATH OR BRONCHOSPA SMS [facility] nystatin 100,000 unit/mL suspension 2- 00:00: 00 Yes [id number] Take 5 mL by mouth 4 (four) times daily. [facility] Mometasone- Formoterol (DULERA) 200-5 mcg/actuati on inhaler 2 00:00: 00 Yes [id number] 2{puff} Inhale 2 Puffs in the morning and 2 Puffs in the evening. [facility] albuterol 90 mcg/actuati on inhaler 2 00:00: 00 Yes [id number] INHALE 2 PUFFS BY MOUTH EVERY 6 HOURS NEEDED FOR WHEEZING, SHORTNESS OF BREATH OR BRONCHOSPA SMS [facility] nystatin 100,000 unit/mL suspension 2 00:00: 00 Yes [id number] Take 5 mL by mouth 4 (four) times daily. [facility] Mometasone- Formoterol (DULERA) 200-5 mcg/actuati on inhaler 09-10 00:00: 00 Yes [id number] 2{puff} Inhale 2 Puffs in the morning and 2 Puffs in the evening. [facility] albuterol 90 mcg/actuati on inhaler 09-10 00:00: 00 Yes [id number] INHALE 2 PUFFS BY MOUTH EVERY 6 HOURS NEEDED FOR WHEEZING, SHORTNESS OF BREATH OR BRONCHOSPA SMS [facility] nystatin 100,000 unit/mL suspension 09-10 00:00: 00 Yes [id number] Take 5 mL by mouth 4 (four) times daily. [facility] Mometasone- Formoterol (DULERA) 200-5 mcg/actuati on inhaler 09-10 00:00: 00 Yes [id number] 2{puff} Inhale 2 Puffs in the morning and 2 Puffs in the evening. [facility] albuterol 90 mcg/actuati on inhaler 2 00:00: 00 Yes [id number] INHALE 2 PUFFS BY MOUTH EVERY 6 HOURS NEEDED FOR WHEEZING, SHORTNESS OF BREATH OR BRONCHOSPA SMS [facility] nystatin 100,000 unit/mL suspension 2 00:00: 00 Yes [id number] Take 5 mL by mouth 4 (four) times daily. [facility] Mometasone- Formoterol (DULERA) 200-5 mcg/actuati on inhaler 2- 00:00: 00 Yes [id number] 2{puff} Inhale 2 Puffs in the morning and 2 Puffs in the evening. [facility] albuterol 90 mcg/actuati on inhaler 2 00:00: 00 Yes [id number] INHALE 2 PUFFS BY MOUTH EVERY 6 HOURS NEEDED FOR WHEEZING, SHORTNESS OF BREATH OR BRONCHOSPA SMS [facility] nystatin 100,000 unit/mL suspension 2 00:00: 00 Yes [id number] Take 5 mL by mouth 4 (four) times daily. [facility] Mometasone- Formoterol (DULERA) 200-5 mcg/actuati on inhaler 2 00:00: 00 Yes [id number] 2{puff} Inhale 2 Puffs in the morning and 2 Puffs in the evening. [facility] albuterol 90 mcg/actuati on inhaler 2 00:00: 00 Yes [id number] INHALE 2 PUFFS BY MOUTH EVERY 6 HOURS NEEDED FOR WHEEZING, SHORTNESS OF BREATH OR BRONCHOSPA SMS [facility] nystatin 100,000 unit/mL suspension 09-10 00:00: 00 Yes [id number] Take 5 mL by mouth 4 (four) times daily. [facility] Mometasone- Formoterol (DULERA) 200-5 mcg/actuati on inhaler 2- 00:00: 00 Yes [id number] 2{puff} Inhale 2 Puffs in the morning and 2 Puffs in the evening. [facility] albuterol 90 mcg/actuati on inhaler 2- 00:00: 00 Yes [id number] INHALE 2 PUFFS BY MOUTH EVERY 6 HOURS NEEDED FOR WHEEZING, SHORTNESS OF BREATH OR BRONCHOSPA SMS [facility] nystatin 100,000 unit/mL suspension 2- 00:00: 00 Yes [id number] Take 5 mL by mouth 4 (four) times daily. [facility] Mometasone- Formoterol (DULERA) 200-5 mcg/actuati on inhaler 2- 00:00: 00 Yes [id number] 2{puff} Inhale 2 Puffs in the morning and 2 Puffs in the evening. [facility] albuterol 90 mcg/actuati on inhaler 2 00:00: 00 Yes [id number] INHALE 2 PUFFS BY MOUTH EVERY 6 HOURS NEEDED FOR WHEEZING, SHORTNESS OF BREATH OR BRONCHOSPA SMS [facility] nystatin 100,000 unit/mL suspension 2 00:00: 00 Yes [id number] Take 5 mL by mouth 4 (four) times daily. [facility] Mometasone- Formoterol (DULERA) 200-5 mcg/actuati on inhaler 2 00:00: 00 Yes [id number] 2{puff} Inhale 2 Puffs in the morning and 2 Puffs in the evening. [facility] albuterol 90 mcg/actuati on inhaler 2 00:00: 00 Yes [id number] INHALE 2 PUFFS BY MOUTH EVERY 6 HOURS NEEDED FOR WHEEZING, SHORTNESS OF BREATH OR BRONCHOSPA SMS [facility] nystatin 100,000 unit/mL suspension 09-10 00:00: 00 Yes [id number] Take 5 mL by mouth 4 (four) times daily. [facility] Mometasone- Formoterol (DULERA) 200-5 mcg/actuati on inhaler 2- 00:00: 00 Yes [id number] 2{puff} Inhale 2 Puffs in the morning and 2 Puffs in the evening. [facility] albuterol 90 mcg/actuati on inhaler 2- 00:00: 00 Yes [id number] INHALE 2 PUFFS BY MOUTH EVERY 6 HOURS NEEDED FOR WHEEZING, SHORTNESS OF BREATH OR BRONCHOSPA SMS [facility] nystatin 100,000 unit/mL suspension 2- 00:00: 00 Yes [id number] Take 5 mL by mouth 4 (four) times daily. [facility] Mometasone- Formoterol (DULERA) 200-5 mcg/actuati on inhaler 2-08 00:00: 00 Yes [id number] 2{puff} Inhale 2 Puffs in the morning and 2 Puffs in the evening. [facility] albuterol 90 mcg/actuati on inhaler 2- 00:00: 00 Yes [id number] INHALE 2 PUFFS BY MOUTH EVERY 6 HOURS NEEDED FOR WHEEZING, SHORTNESS OF BREATH OR BRONCHOSPA SMS [facility] nystatin 100,000 unit/mL suspension 2- 00:00: 00 Yes [id number] Take 5 mL by mouth 4 (four) times daily. [facility] Mometasone- Formoterol (DULERA) 200-5 mcg/actuati on inhaler 2- 00:00: 00 Yes [id number] 2{puff} Inhale 2 Puffs in the morning and 2 Puffs in the evening. [facility] albuterol 90 mcg/actuati on inhaler 2- 00:00: 00 Yes [id number] INHALE 2 PUFFS BY MOUTH EVERY 6 HOURS NEEDED FOR WHEEZING, SHORTNESS OF BREATH OR BRONCHOSPA [facility] nystatin 100,000 unit/mL suspension 2- 00:00: 00 Yes [id number] Take 5 mL by mouth 4 (four) times daily. [facility] Mometasone- Formoterol (DULERA) 200-5 mcg/actuati on inhaler 2-08 00:00: 00 Yes [id number] 2{puff} Inhale 2 Puffs in the morning and 2 Puffs in the evening. [facility] albuterol 90 mcg/actuati on inhaler 2-08 00:00: 00 Yes [id number] INHALE 2 PUFFS BY MOUTH EVERY 6 HOURS NEEDED FOR WHEEZING, SHORTNESS OF BREATH OR BRONCHOSPA SMS [facility] nystatin 100,000 unit/mL suspension 2 00:00: 00 Yes [id number] Take 5 mL by mouth 4 (four) times daily. [facility] Mometasone- Formoterol (DULERA) 200-5 mcg/actuati on inhaler 2 00:00: 00 Yes [id number] 2{puff} Inhale 2 Puffs in the morning and 2 Puffs in the evening. [facility] albuterol 90 mcg/actuati on inhaler 2 00:00: 00 Yes [id number] INHALE 2 PUFFS BY MOUTH EVERY 6 HOURS NEEDED FOR WHEEZING, SHORTNESS OF BREATH OR BRONCHOSPA SMS [facility] nystatin 100,000 unit/mL suspension 09-10 00:00: 00 Yes [id number] Take 5 mL by mouth 4 (four) times daily. [facility] Mometasone- Formoterol (DULERA) 200-5 mcg/actuati on inhaler 09-10 00:00: 00 Yes [id number] 2{puff} Inhale 2 Puffs in the morning and 2 Puffs in the evening. [facility] albuterol 90 mcg/actuati on inhaler 09-10 00:00: 00 Yes [id number] INHALE 2 PUFFS BY MOUTH EVERY 6 HOURS NEEDED FOR WHEEZING, SHORTNESS OF BREATH OR BRONCHOSPA [facility] nystatin 100,000 unit/mL suspension 09-10 00:00: 00 Yes [id number] Take 5 mL by mouth 4 (four) times daily. [facility] Mometasone- Formoterol (DULERA) 200-5 mcg/actuati on inhaler 2- 00:00: 00 Yes [id number] 2{puff} Inhale 2 Puffs in the morning and 2 Puffs in the evening. [facility] albuterol 90 mcg/actuati on inhaler 2- 00:00: 00 Yes [id number] INHALE 2 PUFFS BY MOUTH EVERY 6 HOURS NEEDED FOR WHEEZING, SHORTNESS OF BREATH OR BRONCHOSPA SMS [facility] nystatin 100,000 unit/mL suspension 2 00:00: 00 Yes [id number] Take 5 mL by mouth 4 (four) times daily. [facility] Mometasone- Formoterol (DULERA) 200-5 mcg/actuati on inhaler 2 00:00: 00 Yes [id number] 2{puff} Inhale 2 Puffs in the morning and 2 Puffs in the evening. [facility] albuterol 90 mcg/actuati on inhaler 2 00:00: 00 Yes [id number] INHALE 2 PUFFS BY MOUTH EVERY 6 HOURS NEEDED FOR WHEEZING, SHORTNESS OF BREATH OR BRONCHOSPA [facility] nystatin 100,000 unit/mL suspension 09-10 00:00: 00 Yes [id number] Take 5 mL by mouth 4 (four) times daily. [facility] Mometasone- Formoterol (DULERA) 200-5 mcg/actuati on inhaler 09-10 00:00: 00 Yes [id number] 2{puff} Inhale 2 Puffs in the morning and 2 Puffs in the evening. [facility] albuterol 90 mcg/actuati on inhaler 2 00:00: 00 Yes [id number] INHALE 2 PUFFS BY MOUTH EVERY 6 HOURS NEEDED FOR WHEEZING, SHORTNESS OF BREATH OR BRONCHOSPA [facility] nystatin 100,000 unit/mL suspension 2- 00:00: 00 Yes [id number] Take 5 mL by mouth 4 (four) times daily. [facility] Mometasone- Formoterol (DULERA) 200-5 mcg/actuati on inhaler 2- 00:00: 00 Yes [id number] 2{puff} Inhale 2 Puffs in the morning and 2 Puffs in the evening. [facility] albuterol 90 mcg/actuati on inhaler 2- 00:00: 00 Yes [id number] INHALE 2 PUFFS BY MOUTH EVERY 6 HOURS NEEDED FOR WHEEZING, SHORTNESS OF BREATH OR BRONCHOSPA [facility] nystatin 100,000 unit/mL suspension 2- 00:00: 00 Yes [id number] Take 5 mL by mouth 4 (four) times daily. [facility] Mometasone- Formoterol (DULERA) 200-5 mcg/actuati on inhaler 2 00:00: 00 Yes [id number] 2{puff} Inhale 2 Puffs in the morning and 2 Puffs in the evening. [facility] albuterol 90 mcg/actuati on inhaler 2 00:00: 00 Yes [id number] INHALE 2 PUFFS BY MOUTH EVERY 6 HOURS NEEDED FOR WHEEZING, SHORTNESS OF BREATH OR BRONCHOSPA [facility] nystatin 100,000 unit/mL suspension 2 00:00: 00 Yes [id number] Take 5 mL by mouth 4 (four) times daily. [facility] Mometasone- Formoterol (DULERA) 200-5 mcg/actuati on inhaler 2 00:00: 00 Yes [id number] 2{puff} Inhale 2 Puffs in the morning and 2 Puffs in the evening. [facility] albuterol 90 mcg/actuati on inhaler 2 00:00: 00 Yes [id number] INHALE 2 PUFFS BY MOUTH EVERY 6 HOURS NEEDED FOR WHEEZING, SHORTNESS OF BREATH OR BRONCHOSPA [facility] nystatin 100,000 unit/mL suspension 2- 00:00: 00 Yes [id number] Take 5 mL by mouth 4 (four) times daily. [facility] Mometasone- Formoterol (DULERA) 200-5 mcg/actuati on inhaler 2- 00:00: 00 Yes [id number] 2{puff} Inhale 2 Puffs in the morning and 2 Puffs in the evening. [facility] albuterol 90 mcg/actuati on inhaler 2 00:00: 00 Yes [id number] INHALE 2 PUFFS BY MOUTH EVERY 6 HOURS NEEDED FOR WHEEZING, SHORTNESS OF BREATH OR BRONCHOSPA SMS [facility] nystatin 100,000 unit/mL suspension 2 00:00: 00 Yes [id number] Take 5 mL by mouth 4 (four) times daily. [facility] Mometasone- Formoterol (DULERA) 200-5 mcg/actuati on inhaler 2 00:00: 00 Yes [id number] 2{puff} Inhale 2 Puffs in the morning and 2 Puffs in the evening. [facility] albuterol 90 mcg/actuati on inhaler 2 00:00: 00 Yes [id number] INHALE 2 PUFFS BY MOUTH EVERY 6 HOURS NEEDED FOR WHEEZING, SHORTNESS OF BREATH OR BRONCHOSPA SMS [facility] nystatin 100,000 unit/mL suspension 09-10 00:00: 00 Yes [id number] Take 5 mL by mouth 4 (four) times daily. [facility] Mometasone- Formoterol (DULERA) 200-5 mcg/actuati on inhaler 09-10 00:00: 00 Yes [id number] 2{puff} Inhale 2 Puffs in the morning and 2 Puffs in the evening. [facility] albuterol 90 mcg/actuati on inhaler 2 00:00: 00 Yes [id number] INHALE 2 PUFFS BY MOUTH EVERY 6 HOURS NEEDED FOR WHEEZING, SHORTNESS OF BREATH OR BRONCHOSPA [facility] nystatin 100,000 unit/mL suspension 2 00:00: 00 Yes [id number] Take 5 mL by mouth 4 (four) times daily. [facility] Mometasone- Formoterol (DULERA) 200-5 mcg/actuati on inhaler 2- 00:00: 00 Yes [id number] 2{puff} Inhale 2 Puffs in the morning and 2 Puffs in the evening. [facility] albuterol 90 mcg/actuati on inhaler 2 00:00: 00 Yes [id number] INHALE 2 PUFFS BY MOUTH EVERY 6 HOURS NEEDED FOR WHEEZING, SHORTNESS OF BREATH OR BRONCHOSPA SMS [facility] nystatin 100,000 unit/mL suspension 2 00:00: 00 Yes [id number] Take 5 mL by mouth 4 (four) times daily. [facility] Mometasone- Formoterol (DULERA) 200-5 mcg/actuati on inhaler 2 00:00: 00 Yes [id number] 2{puff} Inhale 2 Puffs in the morning and 2 Puffs in the evening. [facility] albuterol 90 mcg/actuati on inhaler 09-10 00:00: 00 Yes [id number] INHALE 2 PUFFS BY MOUTH EVERY 6 HOURS NEEDED FOR WHEEZING, SHORTNESS OF BREATH OR BRONCHOSPA [facility] nystatin 100,000 unit/mL suspension 09-10 00:00: 00 Yes [id number] Take 5 mL by mouth 4 (four) times daily. [facility] Mometasone- Formoterol (DULERA) 200-5 mcg/actuati on inhaler 09-10 00:00: 00 Yes [id number] 2{puff} Inhale 2 Puffs in the morning and 2 Puffs in the evening. [facility] albuterol 90 mcg/actuati on inhaler 2 00:00: 00 Yes [id number] INHALE 2 PUFFS BY MOUTH EVERY 6 HOURS NEEDED FOR WHEEZING, SHORTNESS OF BREATH OR BRONCHOSPA [facility] nystatin 100,000 unit/mL suspension 2 00:00: 00 Yes [id number] Take 5 mL by mouth 4 (four) times daily. [facility] Mometasone- Formoterol (DULERA) 200-5 mcg/actuati on inhaler 2- 00:00: 00 Yes [id number] 2{puff} Inhale 2 Puffs in the morning and 2 Puffs in the evening. [facility] albuterol 90 mcg/actuati on inhaler 2- 00:00: 00 Yes [id number] INHALE 2 PUFFS BY MOUTH EVERY 6 HOURS NEEDED FOR WHEEZING, SHORTNESS OF BREATH OR BRONCHOSPA SMS [facility] nystatin 100,000 unit/mL suspension 2- 00:00: 00 Yes [id number] Take 5 mL by mouth 4 (four) times daily. [facility] Mometasone- Formoterol (DULERA) 200-5 mcg/actuati on inhaler 2- 00:00: 00 Yes [id number] 2{puff} Inhale 2 Puffs in the morning and 2 Puffs in the evening. [facility] albuterol 90 mcg/actuati on inhaler 2 00:00: 00 Yes [id number] INHALE 2 PUFFS BY MOUTH EVERY 6 HOURS NEEDED FOR WHEEZING, SHORTNESS OF BREATH OR BRONCHOSPA SMS [facility] nystatin 100,000 unit/mL suspension 2- 00:00: 00 Yes [id number] Take 5 mL by mouth 4 (four) times daily. [facility] Mometasone- Formoterol (DULERA) 200-5 mcg/actuati on inhaler 2- 00:00: 00 Yes [id number] 2{puff} Inhale 2 Puffs in the morning and 2 Puffs in the evening. [facility] albuterol 90 mcg/actuati on inhaler 2- 00:00: 00 Yes [id number] INHALE 2 PUFFS BY MOUTH EVERY 6 HOURS NEEDED FOR WHEEZING, SHORTNESS OF BREATH OR BRONCHOSPA SMS [facility] nystatin 100,000 unit/mL suspension 2- 00:00: 00 Yes [id number] Take 5 mL by mouth 4 (four) times daily. [facility] Mometasone- Formoterol (DULERA) 200-5 mcg/actuati on inhaler 2-08 00:00: 00 Yes [id number] 2{puff} Inhale 2 Puffs in the morning and 2 Puffs in the evening. [facility] albuterol 90 mcg/actuati on inhaler 2 00:00: 00 Yes [id number] INHALE 2 PUFFS BY MOUTH EVERY 6 HOURS NEEDED FOR WHEEZING, SHORTNESS OF BREATH OR BRONCHOSPA SMS [facility] nystatin 100,000 unit/mL suspension 2- 00:00: 00 Yes [id number] Take 5 mL by mouth 4 (four) times daily. [facility] Mometasone- Formoterol (DULERA) 200-5 mcg/actuati on inhaler 2 00:00: 00 Yes [id number] 2{puff} Inhale 2 Puffs in the morning and 2 Puffs in the evening. [facility] nystatin 100,000 unit/mL suspension 2 00:00: 00 Yes [id number] Take 5 mL by mouth 4 (four) times daily. [facility] Mometasone- Formoterol (DULERA) 200-5 mcg/actuati on inhaler 2- 00:00: 00 Yes [id number] 2{puff} Inhale 2 Puffs in the morning and 2 Puffs in the evening. [facility] nystatin 100,000 unit/mL suspension 2 00:00: 00 Yes [id number] Take 5 mL by mouth 4 (four) times daily. [facility] Mometasone- Formoterol (DULERA) 200-5 mcg/actuati on inhaler 2- 00:00: 00 Yes [id number] 2{puff} Inhale 2 Puffs in the morning and 2 Puffs in the evening. [facility] nystatin 100,000 unit/mL suspension 2- 00:00: 00 Yes [id number] Take 5 mL by mouth 4 (four) times daily. [facility] Mometasone- Formoterol (DULERA) 200-5 mcg/actuati on inhaler 2-08 00:00: 00 Yes [id number] 2{puff} Inhale 2 Puffs in the morning and 2 Puffs in the evening. [facility] nystatin 100,000 unit/mL suspension 2- 00:00: 00 Yes [id number] Take 5 mL by mouth 4 (four) times daily. [facility]- Formoterol (DULERA) 200-5 mcg/actuati on inhaler 2- 00:00: 00 Yes [id number] 2{puff} Inhale 2 Puffs in the morning and 2 Puffs in the evening. [facility] nystatin 100,000 unit/mL suspension 2 00:00: 00 Yes [id number] Take 5 mL by mouth 4 (four) times daily. [facility] Mometasone- Formoterol (DULERA) 200-5 mcg/actuati on inhaler 2 00:00: 00 Yes [id number] 2{puff} Inhale 2 Puffs in the morning and 2 Puffs in the evening. [facility] nystatin 100,000 unit/mL suspension 2 00:00: 00 Yes [id number] Take 5 mL by mouth 4 (four) times daily. [facility] Mometasone- Formoterol (DULERA) 200-5 mcg/actuati on inhaler 2 00:00: 00 Yes [id number] 2{puff} Inhale 2 Puffs in the morning and 2 Puffs in the evening. [facility] nystatin 100,000 unit/mL suspension 2- 00:00: 00 Yes [id number] Take 5 mL by mouth 4 (four) times daily. [facility] Mometasone- Formoterol (DULERA) 200-5 mcg/actuati on inhaler 2- 00:00: 00 Yes [id number] 2{puff} Inhale 2 Puffs in the morning and 2 Puffs in the evening. [facility] nystatin 100,000 unit/mL suspension 2- 00:00: 00 Yes [id number] Take 5 mL by mouth 4 (four) times daily. [facility] Mometasone- Formoterol (DULERA) 200-5 mcg/actuati on inhaler 2- 00:00: 00 Yes [id number] 2{puff} Inhale 2 Puffs in the morning and 2 Puffs in the evening. [facility] nystatin 100,000 unit/mL suspension 2- 00:00: 00 Yes [id number] Take 5 mL by mouth 4 (four) times daily. [facility] Mometasone- Formoterol (DULERA) 200-5 mcg/actuati on inhaler 2- 00:00: 00 Yes [id number] 2{puff} Inhale 2 Puffs in the morning and 2 Puffs in the evening. [facility] nystatin 100,000 unit/mL suspension 2- 00:00: 00 Yes [id number] Take 5 mL by mouth 4 (four) times daily. [facility] Mometasone- Formoterol (DULERA) 200-5 mcg/actuati on inhaler 2- 00:00: 00 Yes [id number] 2{puff} Inhale 2 Puffs in the morning and 2 Puffs in the evening. [facility] nystatin 100,000 unit/mL suspension 2- 00:00: 00 Yes [id number] Take 5 mL by mouth 4 (four) times daily. [facility] Mometasone- Formoterol (DULERA) 200-5 mcg/actuati on inhaler 2- 00:00: 00 Yes [id number] 2{puff} Inhale 2 Puffs in the morning and 2 Puffs in the evening. [facility] nystatin 100,000 unit/mL suspension 2- 00:00: 00 Yes [id number] Take 5 mL by mouth 4 (four) times daily. [facility] Mometasone- Formoterol (DULERA) 200-5 mcg/actuati on inhaler 2- 00:00: 00 Yes [id number] 2{puff} Inhale 2 Puffs in the morning and 2 Puffs in the evening. [facility] nystatin 100,000 unit/mL suspension 2- 00:00: 00 Yes [id number] Take 5 mL by mouth 4 (four) times daily. [facility] Mometasone- Formoterol (DULERA) 200-5 mcg/actuati on inhaler 2- 00:00: 00 Yes [id number] 2{puff} Inhale 2 Puffs in the morning and 2 Puffs in the evening. [facility] nystatin 100,000 unit/mL suspension 2- 00:00: 00 Yes [id number] Take 5 mL by mouth 4 (four) times daily. [facility]- Formoterol (DULERA) 200-5 mcg/actuati on inhaler 2- 00:00: 00 Yes [id number] 2{puff} Inhale 2 Puffs in the morning and 2 Puffs in the evening. [facility] nystatin 100,000 unit/mL suspension 2- 00:00: 00 Yes [id number] Take 5 mL by mouth 4 (four) times daily. [facility] M[facility]- Formoterol (DULERA) 200-5 mcg/actuati on inhaler 2-08 00:00: 00 Yes [id number] 2{puff} Inhale 2 Puffs in the morning and 2 Puffs in the evening. [facility] nystatin 100,000 unit/mL suspension 2-08 00:00: 00 Yes [id number] Take 5 mL by mouth 4 (four) times daily. [facility] Mometasone- Formoterol (DULERA) 200-5 mcg/actuati on inhaler 2-08 00:00: 00 Yes [id number] 2{puff} Inhale 2 Puffs in the morning and 2 Puffs in the evening. [facility] nystatin 100,000 unit/mL suspension 2-08 00:00: 00 Yes [id number] Take 5 mL by mouth 4 (four) times daily. [facility] Mometasone- Formoterol (DULERA) 200-5 mcg/actuati on inhaler 2-08 00:00: 00 Yes [id number] 2{puff} Inhale 2 Puffs in the morning and 2 Puffs in the evening. [facility] nystatin 100,000 unit/mL suspension 2-08 00:00: 00 Yes [id number] Take 5 mL by mouth 4 (four) times daily. [facility] Mometasone- Formoterol (DULERA) 200-5 mcg/actuati on inhaler 2-08 00:00: 00 Yes [id number] 2{puff} Inhale 2 Puffs in the morning and 2 Puffs in the evening. [facility] Mometasone- Formoterol (DULERA) 200-5 mcg/actuati on inhaler 2-08 00:00: 00 Yes [id number] 2{puff} Inhale 2 Puffs in the morning and 2 Puffs in the evening. [facility] Mometasone- Formoterol (DULERA) 200-5 mcg/actuati on inhaler 2-08 00:00: 00 Yes [id number] 2{puff} Inhale 2 Puffs in the morning and 2 Puffs in the evening. [facility] Mometasone- Formoterol (DULERA) 200-5 mcg/actuati on inhaler 2-08 00:00: 00 Yes [id number] 2{puff} Inhale 2 Puffs in the morning and 2 Puffs in the evening. [facility] Mometasone- Formoterol (DULERA) 200-5 mcg/actuati on inhaler 2-08 00:00: 00 Yes [id number] 2{puff} Inhale 2 Puffs in the morning and 2 Puffs in the evening. [facility] Momet[facility]- Formoterol (DULERA) 200-5 mcg/actuati on inhaler 2-08 00:00: 00 Yes [id number] 2{puff} Inhale 2 Puffs in the morning and 2 Puffs in the evening. [facility] Mometasone- Formoterol (DULERA) 200-5 mcg/actuati on inhaler 2- 00:00: 00 Yes [id number] 2{puff} Inhale 2 Puffs in the morning and 2 Puffs in the evening. [facility] Mometasone- Formoterol (DULERA) 200-5 mcg/actuati on inhaler 2- 00:00: 00 Yes [id number] 2{puff} Inhale 2 Puffs in the morning and 2 Puffs in the evening. [facility] Mometasone- Formoterol (DULERA) 200-5 mcg/actuati on inhaler 2- 00:00: 00 Yes [id number] 2{puff} Inhale 2 Puffs in the morning and 2 Puffs in the evening. [facility] Mometasone- Formoterol (DULERA) 200-5 mcg/actuati on inhaler 2- 00:00: 00 Yes [id number] 2{puff} Inhale 2 Puffs in the morning and 2 Puffs in the evening. [facility] Mometasone- Formoterol (DULERA) 200-5 mcg/actuati on inhaler 2- 00:00: 00 Yes [id number] 2{puff} Inhale 2 Puffs in the morning and 2 Puffs in the evening. [facility] Mometasone- Formoterol (DULERA) 200-5 mcg/actuati on inhaler 2- 00:00: 00 Yes [id number] 2{puff} Inhale 2 Puffs in the morning and 2 Puffs in the evening. [facility] Mometasone- Formoterol (DULERA) 200-5 mcg/actuati on inhaler 0 2-08 00:00: 00 Yes [id number] 2{puff} Inhale 2 Puffs in the morning and 2 Puffs in the evening. [facility] Mometasone- Formoterol (DULERA) 200-5 mcg/actuati on inhaler 0 2-08 00:00: 00 Yes [id number] 2{puff} Inhale 2 Puffs in the morning and 2 Puffs in the evening. [facility] Mometasone- Formoterol (DULERA) 200-5 mcg/actuati on inhaler 0 2-08 00:00: 00 Yes [id number] 2{puff} Inhale 2 Puffs in the morning and 2 Puffs in the evening. [facility] Mometasone- Formoterol (DULERA) 200-5 mcg/actuati on inhaler 2-08 00:00: 00 Yes [id number] 2{puff} Inhale 2 Puffs in the morning and 2 Puffs in the evening. [facility] Mometasone- Formoterol (DULERA) 200-5 mcg/actuati on inhaler 2-08 00:00: 00 Yes [id number] 2{puff} Inhale 2 Puffs in the morning and 2 Puffs in the evening. [facility] Mometasone- Formoterol (DULERA) 200-5 mcg/actuati on inhaler 2-08 00:00: 00 Yes [id number] 2{puff} Inhale 2 Puffs in the morning and 2 Puffs in the evening. [facility] Mometasone- Formoterol (DULERA) 200-5 mcg/actuati on inhaler 0 2-08 00:00: 00 Yes [id number] 2{puff} Inhale 2 Puffs in the morning and 2 Puffs in the evening. [facility] Mometasone- Formoterol (DULERA) 200-5 mcg/actuati on inhaler 0 2-08 00:00: 00 Yes [id number] 2{puff} Inhale 2 Puffs in the morning and 2 Puffs in the evening. [facility] Mometasone- Formoterol (DULERA) 200-5 mcg/actuati on inhaler 2-08 00:00: 00 Yes [id number] 2{puff} Inhale 2 Puffs in the morning and 2 Puffs in the evening. [facility] Mometasone- Formoterol (DULERA) 200-5 mcg/actuati on inhaler 2-08 00:00: 00 Yes [id number] 2{puff} Inhale 2 Puffs in the morning and 2 Puffs in the evening. [facility] Mometasone- Formoterol (DULERA) 200-5 mcg/actuati on inhaler 2- 00:00: 00 Yes [id number] 2{puff} Inhale 2 Puffs in the morning and 2 Puffs in the evening. [facility] Mometasone- Formoterol (DULERA) 200-5 mcg/actuati on inhaler 2- 00:00: 00 Yes [id number] 2{puff} Inhale 2 Puffs in the morning and 2 Puffs in the evening. [facility] Mometasone- Formoterol (DULERA) 200-5 mcg/actuati on inhaler 2- 00:00: 00 Yes [id number] 2{puff} Inhale 2 Puffs in the morning and 2 Puffs in the evening. [facility] Mometasone- Formoterol (DULERA) 200-5 mcg/actuati on inhaler 2- 00:00: 00 Yes [id number] 2{puff} Inhale 2 Puffs in the morning and 2 Puffs in the evening. [facility] Mometasone- Formoterol (DULERA) 200-5 mcg/actuati on inhaler 2-08 00:00: 00 Yes [id number] 2{puff} Inhale 2 Puffs in the morning and 2 Puffs in the evening. [facility] Mometasone- Formoterol (DULERA) 200-5 mcg/actuati on inhaler 0 2-08 00:00: 00 Yes [id number] 2{puff} Inhale 2 Puffs in the morning and 2 Puffs in the evening. [facility] Mometasone- Formoterol (DULERA) 200-5 mcg/actuati on inhaler 2-08 00:00: 00 Yes [id number] 2{puff} Inhale 2 Puffs in the morning and 2 Puffs in the evening. [facility] Mometasone- Formoterol (DULERA) 200-5 mcg/actuati on inhaler 2-08 00:00: 00 Yes [id number] 2{puff} Inhale 2 Puffs in the morning and 2 Puffs in the evening. [facility] Mometasone- Formoterol (DULERA) 200-5 mcg/actuati on inhaler 2-08 00:00: 00 Yes [id number] 2{puff} Inhale 2 Puffs in the morning and 2 Puffs in the evening. [facility] Mometasone- Formoterol (DULERA) 200-5 mcg/actuati on inhaler 2-08 00:00: 00 Yes [id number] 2{puff} Inhale 2 Puffs in the morning and 2 Puffs in the evening. [facility] Mometasone- Formoterol (DULERA) 200-5 mcg/actuati on inhaler 2-08 00:00: 00 Yes [id number] 2{puff} Inhale 2 Puffs in the morning and 2 Puffs in the evening. [facility] Mometasone- Formoterol (DULERA) 200-5 mcg/actuati on inhaler 2-08 00:00: 00 Yes [id number] 2{puff} Inhale 2 Puffs in the morning and 2 Puffs in the evening. [facility] Mometasone- Formoterol (DULERA) 200-5 mcg/actuati on inhaler 2-08 00:00: 00 Yes [id number] 2{puff} Inhale 2 Puffs in the morning and 2 Puffs in the evening. [facility] Mometasone- Formoterol (DULERA) 200-5 mcg/actuati on inhaler 0 2-08 00:00: 00 Yes [id number] 2{puff} Inhale 2 Puffs in the morning and 2 Puffs in the evening. [facility] Mometasone- Formoterol (DULERA) 200-5 mcg/actuati on inhaler 0 2-08 00:00: 00 Yes [id number] 2{puff} Inhale 2 Puffs in the morning and 2 Puffs in the evening. [facility] Mometasone- Formoterol (DULERA) 200-5 mcg/actuati on inhaler 0 2-08 00:00: 00 Yes [id number] 2{puff} Inhale 2 Puffs in the morning and 2 Puffs in the evening. [facility] Mometasone- Formoterol (DULERA) 200-5 mcg/actuati on inhaler 0 2-08 00:00: 00 Yes [id number] 2{puff} Inhale 2 Puffs in the morning and 2 Puffs in the evening. [facility] Mometasone- Formoterol (DULERA) 200-5 mcg/actuati on inhaler 0 2-08 00:00: 00 Yes [id number] 2{puff} Inhale 2 Puffs in the morning and 2 Puffs in the evening. [facility] Mometasone- Formoterol (DULERA) 200-5 mcg/actuati on inhaler 0 2-08 00:00: 00 Yes [id number] 2{puff} Inhale 2 Puffs in the morning and 2 Puffs in the evening. [facility] Mometasone- Formoterol (DULERA) 200-5 mcg/actuati on inhaler 0 2-08 00:00: 00 Yes [id number] 2{puff} Inhale 2 Puffs in the morning and 2 Puffs in the evening. [facility] Mometasone- Formoterol (DULERA) 200-5 mcg/actuati on inhaler 2-08 00:00: 00 Yes [id number] 2{puff} Inhale 2 Puffs in the morning and 2 Puffs in the evening. [facility] Mometasone- Formoterol (DULERA) 200-5 mcg/actuati on inhaler 2-08 00:00: 00 Yes [id number] 2{puff} Inhale 2 Puffs in the morning and 2 Puffs in the evening. [facility] Mometasone- Formoterol (DULERA) 200-5 mcg/actuati on inhaler 2-08 00:00: 00 Yes [id number] 2{puff} Inhale 2 Puffs in the morning and 2 Puffs in the evening. [facility] Mometasone- Formoterol (DULERA) 200-5 mcg/actuati on inhaler 2- 00:00: 00 Yes [id number] 2{puff} Inhale 2 Puffs in the morning and 2 Puffs in the evening. [facility] Mometasone- Formoterol (DULERA) 200-5 mcg/actuati on inhaler 2- 00:00: 00 Yes [id number] 2{puff} Inhale 2 Puffs in the morning and 2 Puffs in the evening. [facility] Mometasone- Formoterol (DULERA) 200-5 mcg/actuati on inhaler 2-08 00:00: 00 Yes [id number] 2{puff} Inhale 2 Puffs in the morning and 2 Puffs in the evening. [facility] Mometasone- Formoterol (DULERA) 200-5 mcg/actuati on inhaler 2-08 00:00: 00 Yes [id number] 2{puff} Inhale 2 Puffs in the morning and 2 Puffs in the evening. [facility] Mometasone- Formoterol (DULERA) 200-5 mcg/actuati on inhaler 2-08 00:00: 00 Yes [id number] 2{puff} Inhale 2 Puffs in the morning and 2 Puffs in the evening. [facility] Mometasone- Formoterol (DULERA) 200-5 mcg/actuati on inhaler 0 2-08 00:00: 00 Yes [id number] 2{puff} Inhale 2 Puffs in the morning and 2 Puffs in the evening. [facility] Mometasone- Formoterol (DULERA) 200-5 mcg/actuati on inhaler 0 2-08 00:00: 00 Yes [id number] 2{puff} Inhale 2 Puffs in the morning and 2 Puffs in the evening. [facility] Mometasone- Formoterol (DULERA) 200-5 mcg/actuati on inhaler 2- 00:00: 00 Yes [id number] 2{puff} Inhale 2 Puffs in the morning and 2 Puffs in the evening. [facility] Mometasone- Formoterol (DULERA) 200-5 mcg/actuati on inhaler 0 2- 00:00: 00 Yes [id number] 2{puff} Inhale 2 Puffs in the morning and 2 Puffs in the evening. [facility] Mometasone- Formoterol (DULERA) 200-5 mcg/actuati on inhaler 0 2- 00:00: 00 Yes [id number] 2{puff} Inhale 2 Puffs in the morning and 2 Puffs in the evening. [facility] Mometasone- Formoterol (DULERA) 200-5 mcg/actuati on inhaler 0 2-08 00:00: 00 Yes [id number] 2{puff} Inhale 2 Puffs in the morning and 2 Puffs in the evening. [facility] Mometasone- Formoterol (DULERA) 200-5 mcg/actuati on inhaler 0 2-08 00:00: 00 Yes [id number] 2{puff} Inhale 2 Puffs in the morning and 2 Puffs in the evening. [facility] Mometasone- Formoterol (DULERA) 200-5 mcg/actuati on inhaler 2-08 00:00: 00 Yes [id number] 2{puff} Inhale 2 Puffs in the morning and 2 Puffs in the evening. [facility] Mometasone- Formoterol (DULERA) 200-5 mcg/actuati on inhaler 2-08 00:00: 00 Yes [id number] 2{puff} Inhale 2 Puffs in the morning and 2 Puffs in the evening. [facility] Mometasone- Formoterol (DULERA) 200-5 mcg/actuati on inhaler 2-08 00:00: 00 Yes [id number] 2{puff} Inhale 2 Puffs in the morning and 2 Puffs in the evening. [facility] Mometasone- Formoterol (DULERA) 200-5 mcg/actuati on inhaler 2-08 00:00: 00 Yes [id number] 2{puff} Inhale 2 Puffs in the morning and 2 Puffs in the evening. [facility] Mometasone- Formoterol (DULERA) 200-5 mcg/actuati on inhaler 2-08 00:00: 00 Yes [id number] 2{puff} Inhale 2 Puffs in the morning and 2 Puffs in the evening. [facility] Mometasone- Formoterol (DULERA) 200-5 mcg/actuati on inhaler 2-08 00:00: 00 Yes [id number] 2{puff} Inhale 2 Puffs in the morning and 2 Puffs in the evening. [facility] Mometasone- Formoterol (DULERA) 200-5 mcg/actuati on inhaler 2-08 00:00: 00 Yes [id number] 2{puff} Inhale 2 Puffs in the morning and 2 Puffs in the evening. [facility] Mometasone- Formoterol (DULERA) 200-5 mcg/actuati on inhaler 2-08 00:00: 00 Yes [id number] 2{puff} Inhale 2 Puffs in the morning and 2 Puffs in the evening. [facility] Mometasone- Formoterol (DULERA) 200-5 mcg/actuati on inhaler 2-08 00:00: 00 Yes [id number] 2{puff} Inhale 2 Puffs in the morning and 2 Puffs in the evening. [facility] Mometasone- Formoterol (DULERA) 200-5 mcg/actuati on inhaler 2-08 00:00: 00 Yes [id number] 2{puff} Inhale 2 Puffs in the morning and 2 Puffs in the evening. [facility] Mometasone- Formoterol (DULERA) 200-5 mcg/actuati on inhaler 2- 00:00: 00 Yes [id number] 2{puff} Inhale 2 Puffs in the morning and 2 Puffs in the evening. [facility] Mometasone- Formoterol (DULERA) 200-5 mcg/actuati on inhaler 2- 00:00: 00 Yes [id number] 2{puff} Inhale 2 Puffs in the morning and 2 Puffs in the evening. [facility] Mometasone- Formoterol (DULERA) 200-5 mcg/actuati on inhaler 2- 00:00: 00 Yes [id number] 2{puff} Inhale 2 Puffs in the morning and 2 Puffs in the evening. [facility] Mometasone- Formoterol (DULERA) 200-5 mcg/actuati on inhaler 2-08 00:00: 00 Yes [id number] 2{puff} Inhale 2 Puffs in the morning and 2 Puffs in the evening. [facility] Mometasone- Formoterol (DULERA) 200-5 mcg/actuati on inhaler 2-08 00:00: 00 Yes [id number] 2{puff} Inhale 2 Puffs in the morning and 2 Puffs in the evening. [facility] Mometasone- Formoterol (DULERA) 200-5 mcg/actuati on inhaler 2- 00:00: 00 Yes [id number] 2{puff} Inhale 2 Puffs in the morning and 2 Puffs in the evening. [facility] Mometasone- Formoterol (DULERA) 200-5 mcg/actuati on inhaler 2 00:00: 00 Yes [id number] 2{puff} Inhale 2 Puffs in the morning and 2 Puffs in the evening. [facility] Mometasone- Formoterol (DULERA) 200-5 mcg/actuati on inhaler 2 00:00: 00 Yes [id number] 2{puff} Inhale 2 Puffs in the morning and 2 Puffs in the evening. [facility] Mometasone- Formoterol (DULERA) 200-5 mcg/actuati on inhaler 2 00:00: 00 Yes [id number] 2{puff} Inhale 2 Puffs in the morning and 2 Puffs in the evening. [facility] Mometasone- Formoterol (DULERA) 200-5 mcg/actuati on inhaler 2 00:00: 00 Yes [id number] 2{puff} Inhale 2 Puffs in the morning and 2 Puffs in the evening. [facility] Mometasone- Formoterol (DULERA) 200-5 mcg/actuati on inhaler 2 00:00: 00 Yes [id number] 2{puff} Inhale 2 Puffs in the morning and 2 Puffs in the evening. [facility] nystatin 100,000 unit/mL suspension 09-10 00:00: 00 01-26 00:00 :00 No [id number] Take 5 mL by mouth 4 (four) times daily. [facility] albuterol 90 mcg/actuati on inhaler 09-10 00:00: 00 12-17 00:00 :00 No [id number] INHALE 2 PUFFS BY MOUTH EVERY 6 HOURS NEEDED FOR WHEEZING, SHORTNESS OF BREATH OR BRONCHOSPA [facility] traMADoL 50 mg tablet 2022-0 2-08 00:00: 00 09-18 05:59 :00 No [id number] 50mg Take 1 tablet by mouth every 6 (six) hours as needed for Pain (scale 4-6) for up to 7 days. Indication s: chronic pain [facility] traMADoL 50 mg tablet 2022-0 2-08 00:00: 00 09-18 05:59 :00 No [id number] 50mg Take 1 tablet by mouth every 6 (six) hours as needed for Pain (scale 4-6) for up to 7 days. Indication s: chronic pain [facility] traMADoL 50 mg tablet 2022-0 2-08 00:00: 00 09-18 05:59 :00 No [id number] 50mg Take 1 tablet by mouth every 6 (six) hours as needed for Pain (scale 4-6) for up to 7 days. Indication s: chronic pain [facility] traMADoL 50 mg tablet 0 2-08 00:00: 00 09-18 05:59 :00 No [id number] 50mg Take 1 tablet by mouth every 6 (six) hours as needed for Pain (scale 4-6) for up to 7 days. Indication s: chronic pain [facility] traMADoL 50 mg tablet 2022-0 2-08 00:00: 00 09-18 05:59 :00 No [id number] 50mg Take 1 tablet by mouth every 6 (six) hours as needed for Pain (scale 4-6) for up to 7 days. Indication s: chronic pain [facility] traMADoL 50 mg tablet 2022-0 2-08 00:00: 00 09-18 05:59 :00 No [id number] 50mg Take 1 tablet by mouth every 6 (six) hours as needed for Pain (scale 4-6) for up to 7 days. Indication s: chronic pain [facility] fluconazole (DIFLUCAN) 150 mg tablet 1-31 00:00: 00 Yes 150mg Take 1 tablet by mouth every 5 (five) days. [facility] fluconazole (DIFLUCAN) 150 mg tablet 09-02 00:00: 00 Yes 150mg Take 1 tablet by mouth every 5 (five) days. [facility] lancets 33 gauge Misc 09-02 00:00: 00 Yes Use as directed twice a day for E11.9 [facility] blood sugar diagnostic (TRUE METRIX GLUCOSE TEST STRIP) strip 09-02 00:00: 00 Yes [id number] Use as directed to check blood sugar QID DX: E11.9 [facility] fluconazole (DIFLUCAN) 150 mg tablet 09-02 00:00: 00 Yes 150mg Take 1 tablet by mouth every 5 (five) days. [facility] lancets 33 gauge Misc 09-02 00:00: 00 Yes Use as directed twice a day for E11.9 [facility] blood sugar diagnostic (TRUE METRIX GLUCOSE TEST STRIP) strip 09-02 00:00: 00 Yes [id number] Use as directed to check blood sugar QID DX: E11.9 [facility] fluconazole (DIFLUCAN) 150 mg tablet 09-02 00:00: 00 Yes 150mg Take 1 tablet by mouth every 5 (five) days. [facility] lancets 33 gauge Misc 09-02 00:00: 00 Yes Use as directed twice a day for E11.9 [facility] blood sugar diagnostic (TRUE METRIX GLUCOSE TEST STRIP) strip 09-02 00:00: 00 Yes [id number] Use as directed to check blood sugar QID DX: E11.9 [facility] fluconazole (DIFLUCAN) 150 mg tablet 09-02 00:00: 00 Yes 150mg Take 1 tablet by mouth every 5 (five) days. [facility] lancets 33 gauge Misc 09-02 00:00: 00 Yes Use as directed twice a [facility]11.[facility] (TRUE METRIX GLUCOSE TEST STRIP) strip 09-02 00:00: 00 Yes [id number] Use as directed to check blood sugar QID DX: E11.9 [facility] fluconazole (DIFLUCAN) 150 mg tablet 09-02 00:00: 00 Yes 150mg Take 1 tablet by mouth every 5 (five) days. [facility] lancets 33 gauge Misc 09-02 00:00: 00 Yes Use as directed twice a day for E11.9 [facility] blood sugar diagnostic (TRUE METRIX GLUCOSE TEST STRIP) strip 09-02 00:00: 00 Yes [id number] Use as directed to check blood sugar QID DX: E11.9 [facility] fluconazole (DIFLUCAN) 150 mg tablet 09-02 00:00: 00 Yes 150mg Take 1 tablet by mouth every 5 (five) days. [facility] lancets 33 gauge Misc 09-02 00:00: 00 Yes Use as directed twice a day for E11.9 [facility] blood sugar diagnostic (TRUE METRIX GLUCOSE TEST STRIP) strip 09-02 00:00: 00 Yes [id number] Use as directed to check blood sugar QID DX: E11.9 [facility] fluconazole (DIFLUCAN) 150 mg tablet 09-02 00:00: 00 Yes 150mg Take 1 tablet by mouth every 5 (five) days. [facility] lancets 33 gauge Misc 09-02 00:00: 00 Yes Use as directed twice a day for E11.9 [facility] blood sugar diagnostic (TRUE METRIX GLUCOSE TEST STRIP) strip 09-02 00:00: 00 Yes [id number] Use as directed to check blood sugar QID DX: E11.9 [facility] fluconazole (DIFLUCAN) 150 mg tablet 09-02 00:00: 00 Yes 150mg Take 1 tablet by mouth every 5 (five) days. [facility] lancets 33 gauge Misc 09-02 00:00: 00 Yes Use as directed twice a day for E11.9 [facility] blood sugar diagnostic (TRUE METRIX GLUCOSE TEST STRIP) strip 09-02 00:00: 00 Yes [id number] Use as directed to check blood sugar QID DX: E11.9 [facility] fluconazole (DIFLUCAN) 150 mg tablet 09-02 00:00: 00 Yes 150mg Take 1 tablet by mouth every 5 (five) days. [facility] lancets 33 gauge Misc 09-02 00:00: 00 Yes Use as directed twice a day for E11.9 [facility] blood sugar diagnostic (TRUE METRIX GLUCOSE TEST STRIP) strip 09-02 00:00: 00 Yes [id number] Use as directed to check blood sugar QID DX: E11.9 [facility] fluconazole (DIFLUCAN) 150 mg tablet 09-02 00:00: 00 Yes 150mg Take 1 tablet by mouth every 5 (five) days. [facility] lancets 33 gauge Misc 09-02 00:00: 00 Yes Use as directed twice a day for E11.9 [facility] blood sugar diagnostic (TRUE METRIX GLUCOSE TEST STRIP) strip 09-02 00:00: 00 Yes [id number] Use as directed to check blood sugar QID DX: E11.9 [facility] fluconazole (DIFLUCAN) 150 mg tablet 09-02 00:00: 00 Yes 150mg Take 1 tablet by mouth every 5 (five) days. [facility] lancets 33 gauge Misc 09-02 00:00: 00 Yes Use as directed twice a day for E11.9 [facility] blood sugar diagnostic (TRUE METRIX GLUCOSE TEST STRIP) strip 09-02 00:00: 00 Yes [id number] Use as directed to check blood sugar QID DX: E11.9 [facility] fluconazole (DIFLUCAN) 150 mg tablet 09-02 00:00: 00 Yes 150mg Take 1 tablet by mouth every 5 (five) days. [facility] lancets 33 gauge Misc 09-02 00:00: 00 Yes Use as directed twice a day for E11.9 [facility] blood sugar diagnostic (TRUE METRIX GLUCOSE TEST STRIP) strip 09-02 00:00: 00 Yes [id number] Use as directed to check blood sugar QID DX: E11.9 [facility] fluconazole (DIFLUCAN) 150 mg tablet 09-02 00:00: 00 Yes 150mg Take 1 tablet by mouth every 5 (five) days. [facility] lancets 33 gauge Misc 09-02 00:00: 00 Yes Use as directed twice a day for E11.9 [facility] blood sugar diagnostic (TRUE METRIX GLUCOSE TEST STRIP) strip 09-02 00:00: 00 Yes [id number] Use as directed to check blood sugar QID DX: E11.9 [facility] fluconazole (DIFLUCAN) 150 mg tablet 09-02 00:00: 00 Yes 150mg Take 1 tablet by mouth every 5 (five) days. [facility] lancets 33 gauge Misc 09-02 00:00: 00 Yes Use as directed twice a day for E11.9 [facility] blood sugar diagnostic (TRUE METRIX GLUCOSE TEST STRIP) strip 09-02 00:00: 00 Yes [id number] Use as directed to check blood sugar QID DX: E11.9 [facility] fluconazole (DIFLUCAN) 150 mg tablet 09-02 00:00: 00 Yes 150mg Take 1 tablet by mouth every 5 (five) days. [facility] lancets 33 gauge Misc 09-02 00:00: 00 Yes Use as directed twice a day for E11.9 [facility] blood sugar diagnostic (TRUE METRIX GLUCOSE TEST STRIP) strip 09-02 00:00: 00 Yes [id number] Use as directed to check blood sugar QID DX: E11.9 [facility] fluconazole (DIFLUCAN) 150 mg tablet 09-02 00:00: 00 Yes 150mg Take 1 tablet by mouth every 5 (five) days. [facility] lancets 33 gauge Misc 09-02 00:00: 00 Yes Use as directed twice a day for E11.9 [facility] blood sugar diagnostic (TRUE METRIX GLUCOSE TEST STRIP) strip 09-02 00:00: 00 Yes [id number] Use as directed to check blood sugar QID DX: E11.9 [facility] fluconazole (DIFLUCAN) 150 mg tablet 09-02 00:00: 00 Yes 150mg Take 1 tablet by mouth every 5 (five) days. [facility] lancets 33 gauge Misc 09-02 00:00: 00 Yes Use as directed twice a day for E11.9 [facility] blood sugar diagnostic (TRUE METRIX GLUCOSE TEST STRIP) strip 09-02 00:00: 00 Yes [id number] Use as directed to check blood sugar QID DX: E11.9 [facility] fluconazole (DIFLUCAN) 150 mg tablet 09-02 00:00: 00 Yes 150mg Take 1 tablet by mouth every 5 (five) days. [facility] lancets 33 gauge Misc 09-02 00:00: 00 Yes Use as directed twice a day for E11.9 [facility] blood sugar diagnostic (TRUE METRIX GLUCOSE TEST STRIP) strip 09-02 00:00: 00 Yes [id number] Use as directed to check blood sugar QID DX: E11.9 [facility] fluconazole (DIFLUCAN) 150 mg tablet 09-02 00:00: 00 Yes 150mg Take 1 tablet by mouth every 5 (five) days. [facility] lancets 33 gauge Misc 09-02 00:00: 00 Yes Use as directed twice a day for E11.9 [facility] blood sugar diagnostic (TRUE METRIX GLUCOSE TEST STRIP) strip 09-02 00:00: 00 Yes [id number] Use as directed to check blood sugar QID DX: E11.9 [facility] fluconazole (DIFLUCAN) 150 mg tablet 09-02 00:00: 00 Yes 150mg Take 1 tablet by mouth every 5 (five) days. [facility] lancets 33 gauge Misc 09-02 00:00: 00 Yes Use as directed twice a day for E11.9 [facility] blood sugar diagnostic (TRUE METRIX GLUCOSE TEST STRIP) strip 09-02 00:00: 00 Yes [id number] Use as directed to check blood sugar QID DX: E11.9 [facility] fluconazole (DIFLUCAN) 150 mg tablet 09-02 00:00: 00 Yes 150mg Take 1 tablet by mouth every 5 (five) days. [facility] lancets 33 gauge Misc 09-02 00:00: 00 Yes Use as directed twice a day for E11.9 [facility] blood sugar diagnostic (TRUE METRIX GLUCOSE TEST STRIP) strip 09-02 00:00: 00 Yes [id number] Use as directed to check blood sugar QID DX: E11.9 [facility] fluconazole (DIFLUCAN) 150 mg tablet 09-02 00:00: 00 Yes 150mg Take 1 tablet by mouth every 5 (five) days. [facility] lancets 33 gauge Misc 09-02 00:00: 00 Yes Use as directed twice a day for E11.9 [facility] blood sugar diagnostic (TRUE METRIX GLUCOSE TEST STRIP) strip 09-02 00:00: 00 Yes [id number] Use as directed to check blood sugar QID DX: E11.9 [facility] fluconazole (DIFLUCAN) 150 mg tablet 09-02 00:00: 00 Yes 150mg Take 1 tablet by mouth every 5 (five) days. [facility] lancets 33 gauge Misc 09-02 00:00: 00 Yes Use as directed twice a day for E11.9 [facility] blood sugar diagnostic (TRUE METRIX GLUCOSE TEST STRIP) strip 09-02 00:00: 00 Yes [id number] Use as directed to check blood sugar QID DX: E11.9 [facility] fluconazole (DIFLUCAN) 150 mg tablet 09-02 00:00: 00 Yes 150mg Take 1 tablet by mouth every 5 (five) days. [facility] lancets 33 gauge Misc 09-02 00:00: 00 Yes Use as directed twice a day for E11.9 [facility] blood sugar diagnostic (TRUE METRIX GLUCOSE TEST STRIP) strip 09-02 00:00: 00 Yes [id number] Use as directed to check blood sugar QID DX: E11.9 [facility] fluconazole (DIFLUCAN) 150 mg tablet 09-02 00:00: 00 Yes 150mg Take 1 tablet by mouth every 5 (five) days. [facility] lancets 33 gauge Misc 09-02 00:00: 00 Yes Use as directed twice a day for E11.9 [facility] blood sugar diagnostic (TRUE METRIX GLUCOSE TEST STRIP) strip 09-02 00:00: 00 Yes [id number] Use as directed to check blood sugar QID DX: E11.9 [facility] fluconazole (DIFLUCAN) 150 mg tablet 09-02 00:00: 00 Yes 150mg Take 1 tablet by mouth every 5 (five) days. [facility] lancets 33 gauge Misc 09-02 00:00: 00 Yes Use as directed twice a day for E11.9 [facility] blood sugar diagnostic (TRUE METRIX GLUCOSE TEST STRIP) strip 09-02 00:00: 00 Yes [id number] Use as directed to check blood sugar QID DX: E11.9 [facility] fluconazole (DIFLUCAN) 150 mg tablet 09-02 00:00: 00 Yes 150mg Take 1 tablet by mouth every 5 (five) days. [facility] lancets 33 gauge Misc 09-02 00:00: 00 Yes Use as directed twice a day for E11.9 [facility] blood sugar diagnostic (TRUE METRIX GLUCOSE TEST STRIP) strip 09-02 00:00: 00 Yes [id number] Use as directed to check blood sugar QID DX: E11.9 [facility] fluconazole (DIFLUCAN) 150 mg tablet 09-02 00:00: 00 Yes 150mg Take 1 tablet by mouth every 5 (five) days. [facility] Misc 09-02 00:00: 00 Yes Use as directed twice a day for E11.9 [facility] blood sugar diagnostic (TRUE METRIX GLUCOSE TEST STRIP) strip 09-02 00:00: 00 Yes [id number] Use as directed to check blood sugar QID DX: E11.9 [facility] fluconazole (DIFLUCAN) 150 mg tablet 09-02 00:00: 00 Yes 150mg Take 1 tablet by mouth every 5 (five) days. [facility] lancets 33 gauge Misc 09-02 00:00: 00 Yes Use as directed twice a day for E11.9 [facility] blood sugar diagnostic (TRUE METRIX GLUCOSE TEST STRIP) strip 09-02 00:00: 00 Yes [id number] Use as directed to check blood sugar QID DX: E11.9 [facility] fluconazole (DIFLUCAN) 150 mg tablet 09-02 00:00: 00 Yes 150mg Take 1 tablet by mouth every 5 (five) days. [facility] lancets 33 gauge Misc 09-02 00:00: 00 Yes Use as directed twice a day for E11.9 [facility] blood sugar diagnostic (TRUE METRIX GLUCOSE TEST STRIP) strip 09-02 00:00: 00 Yes [id number] Use as directed to check blood sugar QID DX: E11.9 [facility] fluconazole (DIFLUCAN) 150 mg tablet 09-02 00:00: 00 Yes 150mg Take 1 tablet by mouth every 5 (five) days. [facility] lancets 33 gauge Misc 09-02 00:00: 00 Yes Use as directed twice a day for E11.9 [facility] blood sugar diagnostic (TRUE METRIX GLUCOSE TEST STRIP) strip 09-02 00:00: 00 Yes [id number] Use as directed to check blood sugar QID DX: E11.9 [facility] fluconazole (DIFLUCAN) 150 mg tablet 09-02 00:00: 00 Yes 150mg Take 1 tablet by mouth every 5 (five) days. [facility] lancets 33 gauge Misc 09-02 00:00: 00 Yes Use as directed twice a day for E11.9 [facility] blood sugar diagnostic (TRUE METRIX GLUCOSE TEST STRIP) strip 09-02 00:00: 00 Yes [id number] Use as directed to check blood sugar QID DX: E11.9 [facility] fluconazole (DIFLUCAN) 150 mg tablet 09-02 00:00: 00 Yes 150mg Take 1 tablet by mouth every 5 (five) days. [facility] lancets 33 gauge Misc 09-02 00:00: 00 Yes Use as directed twice a day for E11.9 [facility] blood sugar diagnostic (TRUE METRIX GLUCOSE TEST STRIP) strip 09-02 00:00: 00 Yes [id number] Use as directed to check blood sugar QID DX: E11.9 [facility] fluconazole (DIFLUCAN) 150 mg tablet 09-02 00:00: 00 Yes 150mg Take 1 tablet by mouth every 5 (five) days. [facility] lancets 33 gauge Misc 09-02 00:00: 00 Yes Use as directed twice a day for E11.9 [facility] blood sugar diagnostic (TRUE METRIX GLUCOSE TEST STRIP) strip 09-02 00:00: 00 Yes [id number] Use as directed to check blood sugar QID DX: E11.9 [facility] fluconazole (DIFLUCAN) 150 mg tablet 09-02 00:00: 00 Yes 150mg Take 1 tablet by mouth every 5 (five) days. [facility] lancets 33 gauge Misc 09-02 00:00: 00 Yes Use as directed twice a day for E11.9 [facility] blood sugar diagnostic (TRUE METRIX GLUCOSE TEST STRIP) strip 09-02 00:00: 00 Yes [id number] Use as directed to check blood sugar QID DX: E11.9 [facility] fluconazole (DIFLUCAN) 150 mg tablet 09-02 00:00: 00 Yes 150mg Take 1 tablet by mouth every 5 (five) days. [facility] lancets 33 gauge Misc 09-02 00:00: 00 Yes Use as directed twice a day for E11.9 [facility] blood sugar diagnostic (TRUE METRIX GLUCOSE TEST STRIP) strip 09-02 00:00: 00 Yes [id number] Use as directed to check blood sugar QID DX: E11.9 [facility] fluconazole (DIFLUCAN) 150 mg tablet 09-02 00:00: 00 Yes 150mg Take 1 tablet by mouth every 5 (five) days. [facility] lancets 33 gauge Misc 09-02 00:00: 00 Yes Use as directed twice a day for E11.9 [facility] blood sugar diagnostic (TRUE METRIX GLUCOSE TEST STRIP) strip 09-02 00:00: 00 Yes [id number] Use as directed to check blood sugar QID DX: E11.9 [facility] fluconazole (DIFLUCAN) 150 mg tablet 09-02 00:00: 00 Yes 150mg Take 1 tablet by mouth every 5 (five) days. [facility] lancets 33 gauge Misc 09-02 00:00: 00 Yes Use as directed twice a day for E11.9 [facility] blood sugar diagnostic (TRUE METRIX GLUCOSE TEST STRIP) strip 09-02 00:00: 00 Yes [id number] Use as directed to check blood sugar QID DX: E11.9 [facility] fluconazole (DIFLUCAN) 150 mg tablet 09-02 00:00: 00 Yes 150mg Take 1 tablet by mouth every 5 (five) days. [facility] lancets 33 gauge Misc 09-02 00:00: 00 Yes Use as directed twice a day for E11.9 [facility] blood sugar diagnostic (TRUE METRIX GLUCOSE TEST STRIP) strip 09-02 00:00: 00 Yes [id number] Use as directed to check blood sugar QID DX: E11.9 [facility] fluconazole (DIFLUCAN) 150 mg tablet 09-02 00:00: 00 Yes 150mg Take 1 tablet by mouth every 5 (five) days. [facility] lancets 33 gauge Misc 09-02 00:00: 00 Yes Use as directed twice a day for E11.9 [facility] blood sugar diagnostic (TRUE METRIX GLUCOSE TEST STRIP) strip 09-02 00:00: 00 Yes [id number] Use as directed to check blood sugar QID DX: E11.9 [facility] fluconazole (DIFLUCAN) 150 mg tablet 09-02 00:00: 00 Yes 150mg Take 1 tablet by mouth every 5 (five) days. [facility] lancets 33 gauge Misc 09-02 00:00: 00 Yes Use as directed twice a day for E11.9 [facility] blood sugar diagnostic (TRUE METRIX GLUCOSE TEST STRIP) strip 09-02 00:00: 00 Yes [id number] Use as directed to check blood sugar QID DX: E11.9 [facility] fluconazole (DIFLUCAN) 150 mg tablet 09-02 00:00: 00 Yes 150mg Take 1 tablet by mouth every 5 (five) days. [facility] lancets 33 gauge Misc 09-02 00:00: 00 Yes Use as directed twice a day for E11.9 [facility] blood sugar diagnostic (TRUE METRIX GLUCOSE TEST STRIP) strip 09-02 00:00: 00 Yes [id number] Use as directed to check blood sugar QID DX: E11.9 [facility] fluconazole (DIFLUCAN) 150 mg tablet 09-02 00:00: 00 Yes 150mg Take 1 tablet by mouth every 5 (five) days. [facility] lancets 33 gauge Misc 09-02 00:00: 00 Yes Use as directed twice a day for E11.9 [facility] blood sugar diagnostic (TRUE METRIX GLUCOSE TEST STRIP) strip 09-02 00:00: 00 Yes [id number] Use as directed to check blood sugar QID DX: E11.9 [facility] fluconazole (DIFLUCAN) 150 mg tablet 09-02 00:00: 00 Yes 150mg Take 1 tablet by mouth every 5 (five) days. [facility] lancets 33 gauge Misc 09-02 00:00: 00 Yes Use as directed twice a day for E11.9 [facility] blood sugar diagnostic (TRUE METRIX GLUCOSE TEST STRIP) strip 09-02 00:00: 00 Yes [id number] Use as directed to check blood sugar QID DX: E11.9 [facility] fluconazole (DIFLUCAN) 150 mg tablet 09-02 00:00: 00 Yes 150mg Take 1 tablet by mouth every 5 (five) days. [facility] lancets 33 gauge Misc 09-02 00:00: 00 Yes Use as directed twice a day for E11.9 [facility] blood sugar diagnostic (TRUE METRIX GLUCOSE TEST STRIP) strip 09-02 00:00: 00 Yes [id number] Use as directed to check blood sugar QID DX: E11.9 [facility] fluconazole (DIFLUCAN) 150 mg tablet 09-02 00:00: 00 Yes 150mg Take 1 tablet by mouth every 5 (five) days. [facility] lancets 33 gauge Misc 09-02 00:00: 00 Yes Use as directed twice a day for E11.9 [facility] blood sugar diagnostic (TRUE METRIX GLUCOSE TEST STRIP) strip 09-02 00:00: 00 Yes [id number] Use as directed to check blood sugar QID DX: E11.9 [facility] fluconazole (DIFLUCAN) 150 mg tablet 09-02 00:00: 00 Yes 150mg Take 1 tablet by mouth every 5 (five) days. [facility] lancets 33 gauge Misc 09-02 00:00: 00 Yes Use as directed twice a day for E11.9 [facility] blood sugar diagnostic (TRUE METRIX GLUCOSE TEST STRIP) strip 09-02 00:00: 00 Yes [id number] Use as directed to check blood sugar QID DX: E11.9 [facility] fluconazole (DIFLUCAN) 150 mg tablet 09-02 00:00: 00 Yes 150mg Take 1 tablet by mouth every 5 (five) days. [facility] lancets 33 gauge Misc 09-02 00:00: 00 Yes Use as directed twice a day for E11.9 [facility] blood sugar diagnostic (TRUE METRIX GLUCOSE TEST STRIP) strip 09-02 00:00: 00 Yes [id number] Use as directed to check blood sugar QID DX: E11.9 [facility] fluconazole (DIFLUCAN) 150 mg tablet 09-02 00:00: 00 Yes 150mg Take 1 tablet by mouth every 5 (five) days. [facility] lancets 33 gauge Misc 09-02 00:00: 00 Yes Use as directed twice a day for E11.9 [facility] blood sugar diagnostic (TRUE METRIX GLUCOSE TEST STRIP) strip 09-02 00:00: 00 Yes [id number] Use as directed to check blood sugar QID DX: E11.9 [facility] fluconazole (DIFLUCAN) 150 mg tablet 09-02 00:00: 00 Yes 150mg Take 1 tablet by mouth every 5 (five) days. [facility] lancets 33 gauge Misc 09-02 00:00: 00 Yes Use as directed twice a day for E11.9 [facility] blood sugar diagnostic (TRUE METRIX GLUCOSE TEST STRIP) strip 09-02 00:00: 00 Yes [id number] Use as directed to check blood sugar QID DX: E11.9 [facility] fluconazole (DIFLUCAN) 150 mg tablet 09-02 00:00: 00 Yes 150mg Take 1 tablet by mouth every 5 (five) days. [facility] lancets 33 gauge Misc 09-02 00:00: 00 Yes Use as directed twice a day for E11.9 [facility] blood sugar diagnostic (TRUE METRIX GLUCOSE TEST STRIP) strip 09-02 00:00: 00 Yes [id number] Use as directed to check blood sugar QID DX: E11.9 [facility] fluconazole (DIFLUCAN) 150 mg tablet 09-02 00:00: 00 Yes 150mg Take 1 tablet by mouth every 5 (five) days. [facility] lancets 33 gauge Misc 09-02 00:00: 00 Yes Use as directed twice a day for E11.9 [facility] blood sugar diagnostic (TRUE METRIX GLUCOSE TEST STRIP) strip 09-02 00:00: 00 Yes [id number] Use as directed to check blood sugar QID DX: E11.9 [facility] fluconazole (DIFLUCAN) 150 mg tablet 09-02 00:00: 00 Yes 150mg Take 1 tablet by mouth every 5 (five) days. [facility] lancets 33 gauge Misc 09-02 00:00: 00 Yes Use as directed twice a day for E11.9 [facility] blood sugar diagnostic (TRUE METRIX GLUCOSE TEST STRIP) strip 09-02 00:00: 00 Yes [id number] Use as directed to check blood sugar QID DX: E11.9 [facility] fluconazole (DIFLUCAN) 150 mg tablet 09-02 00:00: 00 Yes 150mg Take 1 tablet by mouth every 5 (five) days. [facility] lancets 33 gauge Misc 09-02 00:00: 00 Yes Use as directed twice a day for E11.9 [facility] blood sugar diagnostic (TRUE METRIX GLUCOSE TEST STRIP) strip 09-02 00:00: 00 Yes [id number] Use as directed to check blood sugar QID DX: E11.9 [facility] fluconazole (DIFLUCAN) 150 mg tablet 09-02 00:00: 00 Yes 150mg Take 1 tablet by mouth every 5 (five) days. [facility] lancets 33 gauge Misc 09-02 00:00: 00 Yes Use as directed twice a day for E11.9 [facility] blood sugar diagnostic (TRUE METRIX GLUCOSE TEST STRIP) strip 09-02 00:00: 00 Yes [id number] Use as directed to check blood sugar QID DX: E11.9 [facility] fluconazole (DIFLUCAN) 150 mg tablet 09-02 00:00: 00 Yes 150mg Take 1 tablet by mouth every 5 (five) days. [facility] lancets 33 gauge Misc 09-02 00:00: 00 Yes Use as directed twice a day for E11.9 [facility] blood sugar diagnostic (TRUE METRIX GLUCOSE TEST STRIP) strip 09-02 00:00: 00 Yes [id number] Use as directed to check blood sugar QID DX: E11.9 [facility] fluconazole (DIFLUCAN) 150 mg tablet 09-02 00:00: 00 Yes 150mg Take 1 tablet by mouth every 5 (five) days. [facility] lancets 33 gauge Misc 09-02 00:00: 00 Yes Use as directed twice a day for E11.9 [facility] blood sugar diagnostic (TRUE METRIX GLUCOSE TEST STRIP) strip 09-02 00:00: 00 Yes [id number] Use as directed to check blood sugar QID DX: E11.9 [facility] fluconazole (DIFLUCAN) 150 mg tablet 09-02 00:00: 00 Yes 150mg Take 1 tablet by mouth every 5 (five) days. [facility] lancets 33 gauge Misc 09-02 00:00: 00 Yes Use as directed twice a day for E11.9 [facility] blood sugar diagnostic (TRUE METRIX GLUCOSE TEST STRIP) strip 09-02 00:00: 00 Yes [id number] Use as directed to check blood sugar QID DX: E11.9 [facility] fluconazole (DIFLUCAN) 150 mg tablet 09-02 00:00: 00 Yes 150mg Take 1 tablet by mouth every 5 (five) days. [facility] lancets 33 gauge Misc 09-02 00:00: 00 Yes Use as directed twice a day for E11.9 [facility] blood sugar diagnostic (TRUE METRIX GLUCOSE TEST STRIP) strip 09-02 00:00: 00 Yes [id number] Use as directed to check blood sugar QID DX: E11.9 [facility] fluconazole (DIFLUCAN) 150 mg tablet 09-02 00:00: 00 Yes 150mg Take 1 tablet by mouth every 5 (five) days. [facility] lancets 33 gauge Misc 09-02 00:00: 00 Yes Use as directed twice a day for E11.9 [facility] blood sugar diagnostic (TRUE METRIX GLUCOSE TEST STRIP) strip 09-02 00:00: 00 Yes [id number] Use as directed to check blood sugar QID DX: E11.9 [facility] fluconazole (DIFLUCAN) 150 mg tablet 09-02 00:00: 00 Yes 150mg Take 1 tablet by mouth every 5 (five) days. [facility] lancets 33 gauge Misc 09-02 00:00: 00 Yes Use as directed twice a day for E11.9 [facility] blood sugar diagnostic (TRUE METRIX GLUCOSE TEST STRIP) strip 09-02 00:00: 00 Yes [id number] Use as directed to check blood sugar QID DX: E11.9 [facility] fluconazole (DIFLUCAN) 150 mg tablet 09-02 00:00: 00 Yes 150mg Take 1 tablet by mouth every 5 (five) days. [facility] lancets 33 gauge Misc 09-02 00:00: 00 Yes Use as directed twice a day for E11.9 [facility] blood sugar diagnostic (TRUE METRIX GLUCOSE TEST STRIP) strip 09-02 00:00: 00 Yes [id number] Use as directed to check blood sugar QID DX: E11.9 [facility] fluconazole (DIFLUCAN) 150 mg tablet 09-02 00:00: 00 Yes 150mg Take 1 tablet by mouth every 5 (five) days. [facility] lancets 33 gauge Misc 09-02 00:00: 00 Yes Use as directed twice a day for E11.9 [facility] blood sugar diagnostic (TRUE METRIX GLUCOSE TEST STRIP) strip 09-02 00:00: 00 Yes [id number] Use as directed to check blood sugar QID DX: E11.9 [facility] fluconazole (DIFLUCAN) 150 mg tablet 09-02 00:00: 00 Yes 150mg Take 1 tablet by mouth every 5 (five) days. [facility] lancets 33 gauge Misc 09-02 00:00: 00 Yes Use as directed twice a day for E11.9 [facility] blood sugar diagnostic (TRUE METRIX GLUCOSE TEST STRIP) strip 09-02 00:00: 00 Yes [id number] Use as directed to check blood sugar QID DX: E11.9 [facility] fluconazole (DIFLUCAN) 150 mg tablet 09-02 00:00: 00 Yes 150mg Take 1 tablet by mouth every 5 (five) days. [facility] lancets 33 gauge Misc 09-02 00:00: 00 Yes Use as directed twice a day for E11.9 [facility] blood sugar diagnostic (TRUE METRIX GLUCOSE TEST STRIP) strip 09-02 00:00: 00 Yes [id number] Use as directed to check blood sugar QID DX: E11.9 [facility] fluconazole (DIFLUCAN) 150 mg tablet 09-02 00:00: 00 Yes 150mg Take 1 tablet by mouth every 5 (five) days. [facility] lancets 33 gauge Misc 09-02 00:00: 00 Yes Use as directed twice a day for E11.9 [facility] blood sugar diagnostic (TRUE METRIX GLUCOSE TEST STRIP) strip 09-02 00:00: 00 Yes [id number] Use as directed to check blood sugar QID DX: E11.9 [facility] fluconazole (DIFLUCAN) 150 mg tablet 09-02 00:00: 00 Yes 150mg Take 1 tablet by mouth every 5 (five) days. [facility] lancets 33 gauge Misc 09-02 00:00: 00 Yes Use as directed twice a day for E11.9 [facility] blood sugar diagnostic (TRUE METRIX GLUCOSE TEST STRIP) strip 09-02 00:00: 00 Yes [id number] Use as directed to check blood sugar QID DX: E11.9 [facility] fluconazole (DIFLUCAN) 150 mg tablet 09-02 00:00: 00 Yes 150mg Take 1 tablet by mouth every 5 (five) days. [facility] lancets 33 gauge Misc 09-02 00:00: 00 Yes Use as directed twice a day for E11.9 [facility] blood sugar diagnostic (TRUE METRIX GLUCOSE TEST STRIP) strip 09-02 00:00: 00 Yes [id number] Use as directed to check blood sugar QID DX: E11.9 [facility] fluconazole (DIFLUCAN) 150 mg tablet 09-02 00:00: 00 Yes 150mg Take 1 tablet by mouth every 5 (five) days. [facility] lancets 33 gauge Misc 09-02 00:00: 00 Yes Use as directed twice a day for E11.9 [facility] blood sugar diagnostic (TRUE METRIX GLUCOSE TEST STRIP) strip 09-02 00:00: 00 Yes [id number] Use as directed to check blood sugar QID DX: E11.9 [facility] fluconazole (DIFLUCAN) 150 mg tablet 09-02 00:00: 00 Yes 150mg Take 1 tablet by mouth every 5 (five) days. [facility] lancets 33 gauge Misc 09-02 00:00: 00 Yes Use as directed twice a day for E11.9 [facility] blood sugar diagnostic (TRUE METRIX GLUCOSE TEST STRIP) strip 09-02 00:00: 00 Yes [id number] Use as directed to check blood sugar QID DX: E11.9 [facility] fluconazole (DIFLUCAN) 150 mg tablet 09-02 00:00: 00 Yes 150mg Take 1 tablet by mouth every 5 (five) days. [facility] lancets 33 gauge Misc 09-02 00:00: 00 Yes Use as directed twice a day for E11.9 [facility] blood sugar diagnostic (TRUE METRIX GLUCOSE TEST STRIP) strip 09-02 00:00: 00 Yes [id number] Use as directed to check blood sugar QID DX: E11.9 [facility] fluconazole (DIFLUCAN) 150 mg tablet 09-02 00:00: 00 Yes 150mg Take 1 tablet by mouth every 5 (five) days. [facility] lancets 33 gauge Misc 09-02 00:00: 00 Yes Use as directed twice a day for E11.9 [facility] blood sugar diagnostic (TRUE METRIX GLUCOSE TEST STRIP) strip 09-02 00:00: 00 Yes [id number] Use as directed to check blood sugar QID DX: E11.9 [facility] fluconazole (DIFLUCAN) 150 mg tablet 09-02 00:00: 00 Yes 150mg Take 1 tablet by mouth every 5 (five) days. [facility] lancets 33 gauge Misc 09-02 00:00: 00 Yes Use as directed twice a day for E11.9 [facility] blood sugar diagnostic (TRUE METRIX GLUCOSE TEST STRIP) strip 09-02 00:00: 00 Yes [id number] Use as directed to check blood sugar QID DX: E11.9 [facility] fluconazole (DIFLUCAN) 150 mg tablet 09-02 00:00: 00 Yes 150mg Take 1 tablet by mouth every 5 (five) days. [facility] lancets 33 gauge Misc 09-02 00:00: 00 Yes Use as directed twice a day for E11.9 [facility] blood sugar diagnostic (TRUE METRIX GLUCOSE TEST STRIP) strip 09-02 00:00: 00 Yes [id number] Use as directed to check blood sugar QID DX: E11.9 [facility] fluconazole (DIFLUCAN) 150 mg tablet 09-02 00:00: 00 Yes 150mg Take 1 tablet by mouth every 5 (five) days. [facility] lancets 33 gauge Misc 09-02 00:00: 00 Yes Use as directed twice a day for E11.9 [facility] blood sugar diagnostic (TRUE METRIX GLUCOSE TEST STRIP) strip 09-02 00:00: 00 Yes [id number] Use as directed to check blood sugar QID DX: E11.9 [facility] fluconazole (DIFLUCAN) 150 mg tablet 09-02 00:00: 00 Yes 150mg Take 1 tablet by mouth every 5 (five) days. [facility] lancets 33 gauge Misc 09-02 00:00: 00 Yes Use as directed twice a day for E11.9 [facility] blood sugar diagnostic (TRUE METRIX GLUCOSE TEST STRIP) strip 09-02 00:00: 00 Yes [id number] Use as directed to check blood sugar QID DX: E11.9 [facility] fluconazole (DIFLUCAN) 150 mg tablet 09-02 00:00: 00 Yes 150mg Take 1 tablet by mouth every 5 (five) days. [facility] lancets 33 gauge Misc 09-02 00:00: 00 Yes Use as directed twice a day for E11.9 [facility] blood sugar diagnostic (TRUE METRIX GLUCOSE TEST STRIP) strip 09-02 00:00: 00 Yes [id number] Use as directed to check blood sugar QID DX: E11.9 [facility] fluconazole (DIFLUCAN) 150 mg tablet 09-02 00:00: 00 Yes 150mg Take 1 tablet by mouth every 5 (five) days. [facility] lancets 33 gauge Misc 09-02 00:00: 00 Yes Use as directed twice a [facility] (TRUE METRIX GLUCOSE TEST STRIP) strip 09-02 00:00: 00 Yes [id number] Use as directed to check blood sugar QID DX: E11.9 [facility] fluconazole (DIFLUCAN) 150 mg tablet 09-02 00:00: 00 Yes 150mg Take 1 tablet by mouth every 5 (five) days. [facility] lancets 33 gauge Misc 09-02 00:00: 00 Yes Use as directed twice a day for E11.9 [facility] blood sugar diagnostic (TRUE METRIX GLUCOSE TEST STRIP) strip 09-02 00:00: 00 Yes [id number] Use as directed to check blood sugar QID DX: E11.9 [facility] fluconazole (DIFLUCAN) 150 mg tablet 09-02 00:00: 00 Yes 150mg Take 1 tablet by mouth every 5 (five) days. [facility] lancets 33 gauge Misc 09-02 00:00: 00 Yes Use as directed twice a day for E11.9 [facility] blood sugar diagnostic (TRUE METRIX GLUCOSE TEST STRIP) strip 09-02 00:00: 00 Yes [id number] Use as directed to check blood sugar QID DX: E11.9 [facility] fluconazole (DIFLUCAN) 150 mg tablet 09-02 00:00: 00 Yes 150mg Take 1 tablet by mouth every 5 (five) days. [facility] lancets 33 gauge Misc 09-02 00:00: 00 Yes Use as directed twice a day for E11.9 [facility] blood sugar diagnostic (TRUE METRIX GLUCOSE TEST STRIP) strip 09-02 00:00: 00 Yes [id number] Use as directed to check blood sugar QID DX: E11.9 [facility] fluconazole (DIFLUCAN) 150 mg tablet 09-02 00:00: 00 Yes 150mg Take 1 tablet by mouth every 5 (five) days. [facility] lancets 33 gauge Misc 09-02 00:00: 00 Yes Use as directed twice a day for E11.9 [facility] blood sugar diagnostic (TRUE METRIX GLUCOSE TEST STRIP) strip 09-02 00:00: 00 Yes [id number] Use as directed to check blood sugar QID DX: E11.9 [facility] fluconazole (DIFLUCAN) 150 mg tablet 09-02 00:00: 00 Yes 150mg Take 1 tablet by mouth every 5 (five) days. [facility] lancets 33 gauge Misc 09-02 00:00: 00 Yes Use as directed twice a day for E11.9 [facility] blood sugar diagnostic (TRUE METRIX GLUCOSE TEST STRIP) strip 09-02 00:00: 00 Yes [id number] Use as directed to check blood sugar QID DX: E11.9 [facility] fluconazole (DIFLUCAN) 150 mg tablet 09-02 00:00: 00 Yes 150mg Take 1 tablet by mouth every 5 (five) days. [facility] lancets 33 gauge Misc 09-02 00:00: 00 Yes Use as directed twice a day for E11.9 [facility] blood sugar diagnostic (TRUE METRIX GLUCOSE TEST STRIP) strip 09-02 00:00: 00 Yes [id number] Use as directed to check blood sugar QID DX: E11.9 [facility] fluconazole (DIFLUCAN) 150 mg tablet 09-02 00:00: 00 Yes 150mg Take 1 tablet by mouth every 5 (five) days. [facility] lancets 33 gauge Misc 09-02 00:00: 00 Yes Use as directed twice a day for E11.9 [facility] blood sugar diagnostic (TRUE METRIX GLUCOSE TEST STRIP) strip 09-02 00:00: 00 Yes [id number] Use as directed to check blood sugar QID DX: E11.9 [facility] fluconazole (DIFLUCAN) 150 mg tablet 09-02 00:00: 00 Yes 150mg Take 1 tablet by mouth every 5 (five) days. [facility] lancets 33 gauge Misc 09-02 00:00: 00 Yes Use as directed twice a day for E11.9 [facility] blood sugar diagnostic (TRUE METRIX GLUCOSE TEST STRIP) strip 09-02 00:00: 00 Yes [id number] Use as directed to check blood sugar QID DX: E11.9 [facility] fluconazole (DIFLUCAN) 150 mg tablet 09-02 00:00: 00 Yes 150mg Take 1 tablet by mouth every 5 (five) days. [facility] lancets 33 gauge Misc 09-02 00:00: 00 Yes Use as directed twice a day for E11.9 [facility] blood sugar diagnostic (TRUE METRIX GLUCOSE TEST STRIP) strip 09-02 00:00: 00 Yes [id number] Use as directed to check blood sugar QID DX: E11.9 [facility] fluconazole (DIFLUCAN) 150 mg tablet 09-02 00:00: 00 Yes 150mg Take 1 tablet by mouth every 5 (five) days. [facility] lancets 33 gauge Misc 09-02 00:00: 00 Yes Use as directed twice a day for E11.9 [facility] blood sugar diagnostic (TRUE METRIX GLUCOSE TEST STRIP) strip 09-02 00:00: 00 Yes [id number] Use as directed to check blood sugar QID DX: E11.9 [facility] fluconazole (DIFLUCAN) 150 mg tablet 09-02 00:00: 00 Yes 150mg Take 1 tablet by mouth every 5 (five) days. [facility] lancets 33 gauge Misc 09-02 00:00: 00 Yes Use as directed twice a day for E11.9 [facility] blood sugar diagnostic (TRUE METRIX GLUCOSE TEST STRIP) strip 09-02 00:00: 00 Yes [id number] Use as directed to check blood sugar QID DX: E11.9 [facility] fluconazole (DIFLUCAN) 150 mg tablet 09-02 00:00: 00 Yes 150mg Take 1 tablet by mouth every 5 (five) days. [facility] lancets 33 gauge Misc 09-02 00:00: 00 Yes Use as directed twice a day for E11.9 [facility] blood sugar diagnostic (TRUE METRIX GLUCOSE TEST STRIP) strip 09-02 00:00: 00 Yes [id number] Use as directed to check blood sugar QID DX: E11.9 [facility] fluconazole (DIFLUCAN) 150 mg tablet 09-02 00:00: 00 Yes 150mg Take 1 tablet by mouth every 5 (five) days. [facility] lancets 33 gauge Misc 09-02 00:00: 00 Yes Use as directed twice a day for E11.9 [facility] blood sugar diagnostic (TRUE METRIX GLUCOSE TEST STRIP) strip 09-02 00:00: 00 Yes [id number] Use as directed to check blood sugar QID DX: E11.9 [facility] fluconazole (DIFLUCAN) 150 mg tablet 09-02 00:00: 00 Yes 150mg Take 1 tablet by mouth every 5 (five) days. [facility] lancets 33 gauge Misc 09-02 00:00: 00 Yes Use as directed twice a day for E11.9 [facility] blood sugar diagnostic (TRUE METRIX GLUCOSE TEST STRIP) strip 09-02 00:00: 00 Yes [id number] Use as directed to check blood sugar QID DX: E11.9 [facility] fluconazole (DIFLUCAN) 150 mg tablet 09-02 00:00: 00 Yes 150mg Take 1 tablet by mouth every 5 (five) days. [facility] lancets 33 gauge Misc 09-02 00:00: 00 Yes Use as directed twice a day for E11.9 [facility] blood sugar diagnostic (TRUE METRIX GLUCOSE TEST STRIP) strip 09-02 00:00: 00 Yes [id number] Use as directed to check blood sugar QID DX: E11.9 [facility] fluconazole (DIFLUCAN) 150 mg tablet 09-02 00:00: 00 Yes 150mg Take 1 tablet by mouth every 5 (five) days. [facility] lancets 33 gauge Misc 09-02 00:00: 00 Yes Use as directed twice a day for E11.9 [facility] blood sugar diagnostic (TRUE METRIX GLUCOSE TEST STRIP) strip 09-02 00:00: 00 Yes [id number] Use as directed to check blood sugar QID DX: E11.9 [facility] fluconazole (DIFLUCAN) 150 mg tablet 09-02 00:00: 00 Yes 150mg Take 1 tablet by mouth every 5 (five) days. [facility] lancets 33 gauge Misc 09-02 00:00: 00 Yes Use as directed twice a day for E11.9 [facility] blood sugar diagnostic (TRUE METRIX GLUCOSE TEST STRIP) strip 09-02 00:00: 00 Yes [id number] Use as directed to check blood sugar QID DX: E11.9 [facility] fluconazole (DIFLUCAN) 150 mg tablet 09-02 00:00: 00 Yes 150mg Take 1 tablet by mouth every 5 (five) days. [facility] lancets 33 gauge Misc 09-02 00:00: 00 Yes Use as directed twice a day for E11.9 [facility] blood sugar diagnostic (TRUE METRIX GLUCOSE TEST STRIP) strip 09-02 00:00: 00 Yes [id number] Use as directed to check blood sugar QID DX: E11.9 [facility] fluconazole (DIFLUCAN) 150 mg tablet 09-02 00:00: 00 Yes 150mg Take 1 tablet by mouth every 5 (five) days. [facility] lancets 33 gauge Misc 09-02 00:00: 00 Yes Use as directed twice a day for E11.9 [facility] blood sugar diagnostic (TRUE METRIX GLUCOSE TEST STRIP) strip 09-02 00:00: 00 Yes [id number] Use as directed to check blood sugar QID DX: E11.9 [facility] fluconazole (DIFLUCAN) 150 mg tablet 09-02 00:00: 00 Yes 150mg Take 1 tablet by mouth every 5 (five) days. [facility] lancets 33 gauge [facility] 0 09-02 00:00: 00 Yes Use as directed twice a day for E11.9 [facility] blood sugar diagnostic (TRUE METRIX GLUCOSE TEST STRIP) strip 0 09-02 00:00: 00 Yes [id number] Use as directed to check blood sugar QID DX: E11.9 [facility] lancets 33 [facility] 0 09-02 00:00: 00 Yes Use as directed twice a day for E11.9 [facility] blood sugar diagnostic (TRUE METRIX GLUCOSE TEST STRIP) strip 0 09-02 00:00: 00 Yes [id number] Use as directed to check blood sugar QID DX: E11.9 [facility] lancets 33 gauge [facility] 0 09-02 00:00: 00 Yes Use as directed twice a day for E11.9 [facility] blood sugar diagnostic (TRUE METRIX GLUCOSE TEST STRIP) strip 0 09-02 00:00: 00 Yes [id number] Use as directed to check blood sugar QID DX: E11.9 [facility] lancets 33 gauge [facility] 0 09-02 00:00: 00 Yes Use as directed twice a day for E11.9 [facility] blood sugar diagnostic (TRUE METRIX GLUCOSE TEST STRIP) strip 0 09-02 00:00: 00 Yes [id number] Use as directed to check blood sugar QID DX: E11.9 [facility] lancets 33 gauge [facility] 0 09-02 00:00: 00 Yes Use as directed twice a day for E11.9 [facility] blood sugar diagnostic (TRUE METRIX GLUCOSE TEST STRIP) strip 0 09-02 00:00: 00 Yes [id number] Use as directed to check blood sugar QID DX: E11.9 [facility] lancets 33 gauge Misc 09-02 00:00: 00 Yes Use as directed twice a day for E11.9 [facility] blood sugar diagnostic (TRUE METRIX GLUCOSE TEST STRIP) strip 09-02 00:00: 00 Yes [id number] Use as directed to check blood sugar QID DX: E11.9 [facility] 00 Yes Use as directed twice a day for E11.9 [facility] blood sugar diagnostic (TRUE METRIX GLUCOSE TEST STRIP) strip 0 09-02 00:00: 00 Yes [id number] Use as directed to check blood sugar QID DX: E11.9 [facility]: 00 Yes Use as directed twice a day for E11.9 [facility] blood sugar diagnostic (TRUE METRIX GLUCOSE TEST STRIP) strip 0 09-02 00:00: 00 Yes [id number] Use as directed to check blood sugar QID DX: E11.9 [facility]: 00 Yes Use as directed twice a day for E11.9 [facility] blood sugar diagnostic (TRUE METRIX GLUCOSE TEST STRIP) strip 0 09-02 00:00: 00 Yes [id number] Use as directed to check blood sugar QID DX: E11.9 [facility] lancets 33 gauge Misc 09-02 00:00: 00 Yes Use as directed twice a day for E11.9 [facility] blood sugar diagnostic (TRUE METRIX GLUCOSE TEST STRIP) strip 0 09-02 00:00: 00 Yes [id number] Use as directed to check blood sugar QID DX: E11.9 [facility] lancets 33 gauge Misc 09-02 00:00: 00 Yes Use as directed twice a day for E11.9 [facility] blood sugar diagnostic (TRUE METRIX GLUCOSE TEST STRIP) strip 0 09-02 00:00: 00 Yes [id number] Use as directed to check blood sugar QID DX: E11.9 [facility] lancets 33 gauge Misc 0 09-02 00:00: 00 Yes Use as directed twice a day for E11.9 [facility] blood sugar diagnostic (TRUE METRIX GLUCOSE TEST STRIP) strip 0 09-02 00:00: 00 Yes [id number] Use as directed to check blood sugar QID DX: E11.9 [facility] lancets 33 gauge Misc 0 09-02 00:00: 00 Yes Use as directed twice a day for E11.9 [facility] blood sugar diagnostic (TRUE METRIX GLUCOSE TEST STRIP) strip 0 09-02 00:00: 00 Yes [id number] Use as directed to check blood sugar QID DX: E11.9 [facility] lancets 33 gauge Misc 0 09-02 00:00: 00 Yes Use as directed twice a day for E11.9 [facility] blood sugar diagnostic (TRUE METRIX GLUCOSE TEST STRIP) strip 0 09-02 00:00: 00 Yes [id number] Use as directed to check blood sugar QID DX: E11.9 [facility] lancets 33 gauge Misc 0 09-02 00:00: 00 Yes Use as directed twice a day for E11.9 [facility] blood sugar diagnostic (TRUE METRIX GLUCOSE TEST STRIP) strip 0 09-02 00:00: 00 Yes [id number] Use as directed to check blood sugar QID DX: E11.9 [facility] lancets 33 gauge Misc 0 09-02 00:00: 00 Yes Use as directed twice a day for E11.9 [facility] blood sugar diagnostic (TRUE METRIX GLUCOSE TEST STRIP) strip 0 09-02 00:00: 00 Yes [id number] Use as directed to check blood sugar QID DX: E11.9 [facility] lancets 33 gauge Misc 0 09-02 00:00: 00 Yes Use as directed twice a day for E11.9 [facility] blood sugar diagnostic (TRUE METRIX GLUCOSE TEST STRIP) strip 2022-0 09-02 00:00: 00 Yes [id number] Use as directed to check blood sugar QID DX: E11.9 [facility] lancets 33 gauge Misc 0 09-02 00:00: 00 Yes Use as directed twice a day for E11.9 [facility] blood sugar diagnostic (TRUE METRIX GLUCOSE TEST STRIP) strip 0 09-02 00:00: 00 Yes [id number] Use as directed to check blood sugar QID DX: E11.9 [facility] lancets 33 gauge Misc 0 09-02 00:00: 00 Yes Use as directed twice a day for E11.9 [facility] blood sugar diagnostic (TRUE METRIX GLUCOSE TEST STRIP) strip 0 09-02 00:00: 00 Yes [id number] Use as directed to check blood sugar QID DX: E11.9 [facility] lancets 33 gauge Misc 0 09-02 00:00: 00 Yes Use as directed twice a day for E11.9 [facility] blood sugar diagnostic (TRUE METRIX GLUCOSE TEST STRIP) strip 0 09-02 00:00: 00 Yes [id number] Use as directed to check blood sugar QID DX: E11.9 [facility] lancets 33 gauge Misc 0 09-02 00:00: 00 Yes Use as directed twice a day for E11.9 [facility] blood sugar diagnostic (TRUE METRIX GLUCOSE TEST STRIP) strip 0 09-02 00:00: 00 Yes [id number] Use as directed to check blood sugar QID DX: E11.9 [facility] lancets 33 gauge Misc 0 09-02 00:00: 00 Yes Use as directed twice a day for E11.9 [facility] blood sugar diagnostic (TRUE METRIX GLUCOSE TEST STRIP) strip 0 09-02 00:00: 00 Yes [id number] Use as directed to check blood sugar QID DX: E11.9 [facility] lancets 33 gauge Misc 0 09-02 00:00: 00 Yes Use as directed twice a day for E11.9 [facility] blood sugar diagnostic (TRUE METRIX GLUCOSE TEST STRIP) strip 0 09-02 00:00: 00 Yes [id number] Use as directed to check blood sugar QID DX: E11.9 [facility] lancets 33 gauge Misc 0 09-02 00:00: 00 Yes Use as directed twice a day for E11.9 [facility] blood sugar diagnostic (TRUE METRIX GLUCOSE TEST STRIP) strip 0 09-02 00:00: 00 Yes [id number] Use as directed to check blood sugar QID DX: E11.9 [facility] lancets 33 gauge Misc 0 09-02 00:00: 00 Yes Use as directed twice a day for E11.9 [facility] blood sugar diagnostic (TRUE METRIX GLUCOSE TEST STRIP) strip 0 09-02 00:00: 00 Yes [id number] Use as directed to check blood sugar QID DX: E11.9 [facility] lancets 33 gauge Misc 0 09-02 00:00: 00 Yes Use as directed twice a day for E11.9 [facility] blood sugar diagnostic (TRUE METRIX GLUCOSE TEST STRIP) strip 0 09-02 00:00: 00 Yes [id number] Use as directed to check blood sugar QID DX: E11.9 [facility] lancets 33 gauge Misc 0 09-02 00:00: 00 Yes Use as directed twice a day for E11.9 [facility] blood sugar diagnostic (TRUE METRIX GLUCOSE TEST STRIP) strip 0 09-02 00:00: 00 Yes [id number] Use as directed to check blood sugar QID DX: E11.9 [facility] lancets 33 gauge Misc 0 09-02 00:00: 00 Yes Use as directed twice a day for E11.9 [facility] blood sugar diagnostic (TRUE METRIX GLUCOSE TEST STRIP) strip 0 09-02 00:00: 00 Yes [id number] Use as directed to check blood sugar QID DX: E11.9 [facility] lancets 33 gauge Misc 0 09-02 00:00: 00 Yes Use as directed twice a day for E11.9 [facility] blood sugar diagnostic (TRUE METRIX GLUCOSE TEST STRIP) strip 2022-0 09-02 00:00: 00 Yes [id number] Use as directed to check blood sugar QID DX: E11.9 [facility] lancets 33 gauge Misc 2022-0 09-02 00:00: 00 Yes Use as directed twice a day for E11.9 [facility] blood sugar diagnostic (TRUE METRIX GLUCOSE TEST STRIP) strip 0 09-02 00:00: 00 Yes [id number] Use as directed to check blood sugar QID DX: E11.9 [facility] lancets 33 gauge Misc 0 09-02 00:00: 00 Yes Use as directed twice a day for E11.9 [facility] blood sugar diagnostic (TRUE METRIX GLUCOSE TEST STRIP) strip 2022-0 09-02 00:00: 00 Yes [id number] Use as directed to check blood sugar QID DX: E11.9 [facility] lancets 33 gauge Misc 0 09-02 00:00: 00 Yes Use as directed twice a day for E11.9 [facility] blood sugar diagnostic (TRUE METRIX GLUCOSE TEST STRIP) strip 2022-0 09-02 00:00: 00 Yes [id number] Use as directed to check blood sugar QID DX: E11.9 [facility] lancets 33 gauge Misc 2022-0 09-02 00:00: 00 Yes Use as directed twice a day for E11.9 [facility] blood sugar diagnostic (TRUE METRIX GLUCOSE TEST STRIP) strip 2022-0 09-02 00:00: 00 Yes [id number] Use as directed to check blood sugar QID DX: E11.9 [facility] lancets 33 gauge Misc 2022-0 09-02 00:00: 00 Yes Use as directed twice a day for E11.9 [facility] blood sugar diagnostic (TRUE METRIX GLUCOSE TEST STRIP) strip 2022-0 09-02 00:00: 00 Yes [id number] Use as directed to check blood sugar QID DX: E11.9 [facility] lancets 33 gauge Misc 0 09-02 00:00: 00 Yes Use as directed twice a day for E11.9 [facility] blood sugar diagnostic (TRUE METRIX GLUCOSE TEST STRIP) strip 0 09-02 00:00: 00 Yes [id number] Use as directed to check blood sugar QID DX: E11.9 [facility] lancets 33 gauge Misc 0 09-02 00:00: 00 Yes Use as directed twice a day for E11.9 [facility] [facility] blood sugar diagnostic (TRUE METRIX GLUCOSE TEST STRIP) strip 0 09-02 00:00: 00 Yes [id number] Use as directed to check blood sugar QID DX: E11.9 [facility]: 00 Yes Use as directed twice a day for E11.9 [facility] blood sugar diagnostic (TRUE METRIX GLUCOSE TEST STRIP) strip 0 09-02 00:00: 00 Yes [id number] Use as directed to check blood sugar QID DX: E11.9 [facility] lancets 33 gauge Misc 0 09-02 00:00: 00 Yes Use as directed twice a day for E11.9 [facility] blood sugar diagnostic (TRUE METRIX GLUCOSE TEST STRIP) strip 0 09-02 00:00: 00 Yes [id number] Use as directed to check blood sugar QID DX: E11.9 [facility] lancets 33 gauge Misc 0 09-02 00:00: 00 Yes Use as directed twice a day for E11.9 [facility] blood sugar diagnostic (TRUE METRIX GLUCOSE TEST STRIP) strip 0 09-02 00:00: 00 Yes [id number] Use as directed to check blood sugar QID DX: E11.9 [facility] lancets 33 gauge Misc 0 09-02 00:00: 00 Yes Use as directed twice a day for E11.9 [facility] blood sugar diagnostic (TRUE METRIX GLUCOSE TEST STRIP) strip 0 09-02 00:00: 00 Yes [id number] Use as directed to check blood sugar QID DX: E11.9 [facility] lancets 33 gauge Misc 0 09-02 00:00: 00 Yes Use as directed twice a day for E11.9 [facility] blood sugar diagnostic (TRUE METRIX GLUCOSE TEST STRIP) strip 0 09-02 00:00: 00 Yes [id number] Use as directed to check blood sugar QID DX: E11.9 [facility] lancets 33 gauge Misc 0 09-02 00:00: 00 Yes Use as directed twice a day for E11.9 [facility] blood sugar diagnostic (TRUE METRIX GLUCOSE TEST STRIP) strip 0 09-02 00:00: 00 Yes [id number] Use as directed to check blood sugar QID DX: E11.9 [facility] lancets 33 gauge Misc 0 09-02 00:00: 00 Yes Use as directed twice a day for E11.9 [facility] blood sugar diagnostic (TRUE METRIX GLUCOSE TEST STRIP) strip 0 09-02 00:00: 00 Yes [id number] Use as directed to check blood sugar QID DX: E11.9 [facility] lancets 33 gauge Misc 0 09-02 00:00: 00 Yes Use as directed twice a day for E11.9 [facility] blood sugar diagnostic (TRUE METRIX GLUCOSE TEST STRIP) strip 0 09-02 00:00: 00 Yes [id number] Use as directed to check blood sugar QID DX: E11.9 [facility] lancets 33 gauge Misc 0 09-02 00:00: 00 Yes Use as directed twice a day for E11.9 [facility] blood sugar diagnostic (TRUE METRIX GLUCOSE TEST STRIP) strip 0 09-02 00:00: 00 Yes [id number] Use as directed to check blood sugar QID DX: E11.9 [facility] lancets 33 gauge Misc 0 09-02 00:00: 00 Yes Use as directed twice a day for E11.9 [facility] blood sugar diagnostic (TRUE METRIX GLUCOSE TEST STRIP) strip 0 09-02 00:00: 00 Yes [id number] Use as directed to check blood sugar QID DX: E11.9 [facility] lancets 33 gauge Misc 0 09-02 00:00: 00 Yes Use as directed twice a day for E11.9 [facility] blood sugar diagnostic (TRUE METRIX GLUCOSE TEST STRIP) strip 0 09-02 00:00: 00 Yes [id number] Use as directed to check blood sugar QID DX: E11.9 [facility] lancets 33 gauge Misc 0 09-02 00:00: 00 Yes Use as directed twice a day for E11.9 [facility] blood sugar diagnostic (TRUE METRIX GLUCOSE TEST STRIP) strip 0 09-02 00:00: 00 Yes [id number] Use as directed to check blood sugar QID DX: E11.9 [facility] lancets 33 gauge Misc 0 09-02 00:00: 00 Yes Use as directed twice a day for E11.9 [facility] blood sugar diagnostic (TRUE METRIX GLUCOSE TEST STRIP) strip 0 09-02 00:00: 00 Yes [id number] Use as directed to check blood sugar QID DX: E11.9 [facility] lancets 33 gauge Misc 0 09-02 00:00: 00 Yes Use as directed twice a day for E11.9 [facility] blood sugar diagnostic (TRUE METRIX GLUCOSE TEST STRIP) strip 0 09-02 00:00: 00 Yes [id number] Use as directed to check blood sugar QID DX: E11.9 [facility] lancets 33 gauge Misc 0 09-02 00:00: 00 Yes Use as directed twice a day for E11.9 [facility] blood sugar diagnostic (TRUE METRIX GLUCOSE TEST STRIP) strip 0 09-02 00:00: 00 Yes [id number] Use as directed to check blood sugar QID DX: E11.9 [facility] lancets 33 gauge Misc 2022-0 09-02 00:00: 00 Yes Use as directed twice a day for E11.9 [facility] lancets 33 gauge Misc 09-02 00:00: 00 Yes Use as directed twice a day for E11.9 [facility] lancets 33 gauge [facility] 09-02 00:00: 00 Yes Use as directed twice a day for E11.9 [facility] lancets 33 gauge [facility] 09-02 00:00: 00 Yes Use as directed twice a day for E11.9 [facility] blood sugar diagnostic (TRUE METRIX GLUCOSE TEST STRIP) strip 09-02 00:00: 00 09-11 00:00 :00 No [id number] Use as directed to check blood sugar QID DX: E11.9 [facility] fluconazole (DIFLUCAN) 150 mg tablet 09-02 00:00: 00 04-13 00:00 :00 No 150mg Take 1 tablet by mouth every 5 (five) days. [facility] carvediloL 6.25 mg tablet 09-01 00:00: 00 Yes 6.25mg Take 6.25 mg by mouth in the morning and 6.25 mg in the evening. [facility] carvediloL 6.25 mg tablet 09-01 00:00: 00 Yes 6.25mg Take 6.25 mg by mouth in the morning and 6.25 mg in the evening. [facility] carvediloL 6.25 mg tablet 09-01 00:00: 00 Yes 6.25mg Take 6.25 mg by mouth in the morning and 6.25 mg in the evening. [facility] carvediloL 6.25 mg tablet 09-01 00:00: 00 Yes 6.25mg Take 6.25 mg by mouth in the morning and 6.25 mg in the evening. [facility] carvediloL 6.25 mg tablet 09-01 00:00: 00 Yes 6.25mg Take 6.25 mg by mouth in the morning and 6.25 mg in the evening. [facility] carvediloL 6.25 mg tablet 09-01 00:00: 00 Yes 6.25mg Take 6.25 mg by mouth in the morning and 6.25 mg in the evening. [facility] carvediloL 6.25 mg tablet 3-0 09-01 00:00: 00 Yes 6.25mg Take 6.25 mg by mouth in the morning and 6.25 mg in the evening. [facility] carvediloL 6.25 mg tablet 3-0 09-01 00:00: 00 Yes 6.25mg Take 6.25 mg by mouth in the morning and 6.25 mg in the evening. [facility] carvediloL 6.25 mg tablet 2022-0 09-01 00:00: 00 Yes 6.25mg Take 6.25 mg by mouth in the morning and 6.25 mg in the evening. [facility] carvediloL 6.25 mg tablet 2022-0 09-01 00:00: 00 Yes 6.25mg Take 6.25 mg by mouth in the morning and 6.25 mg in the evening. [facility] carvediloL 6.25 mg tablet 2022-0 09-01 00:00: 00 Yes 6.25mg Take 6.25 mg by mouth in the morning and 6.25 mg in the evening. [facility] carvediloL 6.25 mg tablet 2022-0 09-01 00:00: 00 Yes 6.25mg Take 6.25 mg by mouth in the morning and 6.25 mg in the evening. [facility] carvediloL 6.25 mg tablet 2022-0 09-01 00:00: 00 Yes 6.25mg Take 6.25 mg by mouth in the morning and 6.25 mg in the evening. [facility] carvediloL 6.25 mg tablet 3-0 09-01 00:00: 00 Yes 6.25mg Take 6.25 mg by mouth in the morning and 6.25 mg in the evening. [facility] carvediloL 6.25 mg tablet 3-0 09-01 00:00: 00 Yes 6.25mg Take 6.25 mg by mouth in the morning and 6.25 mg in the evening. [facility] carvediloL 6.25 mg tablet 2022-0 09-01 00:00: 00 Yes 6.25mg Take 6.25 mg by mouth in the morning and 6.25 mg in the evening. [facility] carvediloL 6.25 mg tablet 3-0 09-01 00:00: 00 Yes 6.25mg Take 6.25 mg by mouth in the morning and 6.25 mg in the evening. [facility] carvediloL 6.25 mg tablet 2022-0 09-01 00:00: 00 Yes 6.25mg Take 6.25 mg by mouth in the morning and 6.25 mg in the evening. [facility] carvediloL 6.25 mg tablet 2022-0 09-01 00:00: 00 Yes 6.25mg Take 6.25 mg by mouth in the morning and 6.25 mg in the evening. [facility] carvediloL 6.25 mg tablet 2022-0 09-01 00:00: 00 Yes 6.25mg Take 6.25 mg by mouth in the morning and 6.25 mg in the evening. [facility] carvediloL 6.25 mg tablet 2022-0 09-01 00:00: 00 Yes 6.25mg Take 6.25 mg by mouth in the morning and 6.25 mg in the evening. [facility] carvediloL 6.25 mg tablet 3-0 09-01 00:00: 00 Yes 6.25mg Take 6.25 mg by mouth in the morning and 6.25 mg in the evening. [facility] carvediloL 6.25 mg tablet 3-0 09-01 00:00: 00 Yes 6.25mg Take 6.25 mg by mouth in the morning and 6.25 mg in the evening. [facility] carvediloL 6.25 mg tablet 3-0 09-01 00:00: 00 Yes 6.25mg Take 6.25 mg by mouth in the morning and 6.25 mg in the evening. [facility] carvediloL 6.25 mg tablet 3-0 09-01 00:00: 00 Yes 6.25mg Take 6.25 mg by mouth in the morning and 6.25 mg in the evening. [facility] carvediloL 6.25 mg tablet 3-0 09-01 00:00: 00 Yes 6.25mg Take 6.25 mg by mouth in the morning and 6.25 mg in the evening. [facility] carvediloL 6.25 mg tablet 3-0 09-01 00:00: 00 Yes 6.25mg Take 6.25 mg by mouth in the morning and 6.25 mg in the evening. [facility] carvediloL 6.25 mg tablet 3-0 09-01 00:00: 00 Yes 6.25mg Take 6.25 mg by mouth in the morning and 6.25 mg in the evening. [facility] carvediloL 6.25 mg tablet 3-0 09-01 00:00: 00 Yes 6.25mg Take 6.25 mg by mouth in the morning and 6.25 mg in the evening. [facility] carvediloL 6.25 mg tablet 3-0 09-01 00:00: 00 Yes 6.25mg Take 6.25 mg by mouth in the morning and 6.25 mg in the evening. [facility] carvediloL 6.25 mg tablet 3-0 09-01 00:00: 00 Yes 6.25mg Take 6.25 mg by mouth in the morning and 6.25 mg in the evening. [facility] carvediloL 6.25 mg tablet 3-0 09-01 00:00: 00 Yes 6.25mg Take 6.25 mg by mouth in the morning and 6.25 mg in the evening. [facility] carvediloL 6.25 mg tablet 3-0 09-01 00:00: 00 Yes 6.25mg Take 6.25 mg by mouth in the morning and 6.25 mg in the evening. [facility] carvediloL 6.25 mg tablet 3-0 09-01 00:00: 00 Yes 6.25mg Take 6.25 mg by mouth in the morning and 6.25 mg in the evening. [facility] carvediloL 6.25 mg tablet 3-0 09-01 00:00: 00 Yes 6.25mg Take 1 tablet by mouth in the morning and 1 tablet in the evening. [facility] carvediloL 6.25 mg tablet 2022-0 09-01 00:00: 00 Yes 6.25mg Take 1 tablet by mouth in the morning and 1 tablet in the evening. [facility] carvediloL 6.25 mg tablet 2022-0 09-01 00:00: 00 Yes 6.25mg Take 1 tablet by mouth in the morning and 1 tablet in the evening. [facility] carvediloL 6.25 mg tablet 2022-0 09-01 00:00: 00 Yes 6.25mg Take 1 tablet by mouth in the morning and 1 tablet in the evening. [facility] carvediloL 6.25 mg tablet 2022-0 09-01 00:00: 00 Yes 6.25mg Take 1 tablet by mouth in the morning and 1 tablet in the evening. [facility] carvediloL 6.25 mg tablet 2022-0 09-01 00:00: 00 Yes 6.25mg Take 1 tablet by mouth in the morning and 1 tablet in the evening. [facility] carvediloL 6.25 mg tablet 2022-0 09-01 00:00: 00 Yes 6.25mg Take 1 tablet by mouth in the morning and 1 tablet in the evening. [facility] carvediloL 6.25 mg tablet 2022-0 09-01 00:00: 00 11-27 00:00 :00 No 6.25mg Take 1 tablet by mouth in the morning and 1 tablet in the evening. [facility] carvediloL 6.25 mg tablet 2022-0 09-01 00:00: 00 11-27 00:00 :00 No 6.25mg Take 1 tablet by mouth in the morning and 1 tablet in the evening. [facility] Cholecalcif emmanuel, Vitamin D3, 1,250 mcg (50,000 unit) capsule 2022-0 08-30 00:00: 00 Yes 1{capsu le} Take 1 capsule by mouth weekly. [facility] Cholecalcif emmanuel, Vitamin D3, 1,250 mcg (50,000 unit) capsule 08-30 00:00: 00 Yes 1{capsu le} Take 1 capsule by mouth weekly. [facility] Cholecalcif emmanuel, Vitamin D3, 1,250 mcg (50,000 unit) capsule 08-30 00:00: 00 Yes 1{capsu le} Take 1 capsule by mouth weekly. [facility] Cholecalcif emmanuel, Vitamin D3, 1,250 mcg (50,000 unit) capsule 08-30 00:00: 00 Yes 1{capsu le} Take 1 capsule by mouth weekly. [facility] Cholecalcif emmanuel, Vitamin D3, 1,250 mcg (50,000 unit) capsule 08-30 00:00: 00 Yes 1{capsu le} Take 1 capsule by mouth weekly. [facility] Cholecalcif emmanuel, Vitamin D3, 1,250 mcg (50,000 unit) capsule 08-30 00:00: 00 Yes 1{capsu le} Take 1 capsule by mouth weekly. [facility] Cholecalcif emmanuel, Vitamin D3, 1,250 mcg (50,000 unit) capsule 08-30 00:00: 00 Yes 1{capsu le} Take 1 capsule by mouth weekly. [facility] Cholecalcif emmanuel, Vitamin D3, 1,250 mcg (50,000 unit) capsule 08-30 00:00: 00 Yes 1{capsu le} Take 1 capsule by mouth weekly. [facility] Cholecalcif emmanuel, Vitamin D3, 1,250 mcg (50,000 unit) capsule 08-30 00:00: 00 Yes 1{capsu le} Take 1 capsule by mouth weekly. [facility] Cholecalcif emmanuel, Vitamin D3, 1,250 mcg (50,000 unit) capsule 08-30 00:00: 00 Yes 1{capsu le} Take 1 capsule by mouth weekly. [facility] Cholecalcif emmanuel, Vitamin D3, 1,250 mcg (50,000 unit) capsule 08-30 00:00: 00 Yes 1{capsu le} Take 1 capsule by mouth weekly. [facility] Cholecalcif emmanuel, Vitamin D3, 1,250 mcg (50,000 unit) capsule 08-30 00:00: 00 Yes 1{capsu le} Take 1 capsule by mouth weekly. [facility] Cholecalcif emmanuel, Vitamin D3, 1,250 mcg (50,000 unit) capsule 08-30 00:00: 00 Yes 1{capsu le} Take 1 capsule by mouth weekly. [facility] Cholecalcif emmanuel, Vitamin D3, 1,250 mcg (50,000 unit) capsule 08-30 00:00: 00 Yes 1{capsu le} Take 1 capsule by mouth weekly. [facility] Cholecalcif emmanuel, Vitamin D3, 1,250 mcg (50,000 unit) capsule 08-30 00:00: 00 Yes 1{capsu le} Take 1 capsule by mouth weekly. [facility] Cholecalcif emmanuel, Vitamin D3, 1,250 mcg (50,000 unit) capsule 08-30 00:00: 00 Yes 1{capsu le} Take 1 capsule by mouth weekly. [facility] Cholecalcif emmanuel, Vitamin D3, 1,250 mcg (50,000 unit) capsule 08-30 00:00: 00 Yes 1{capsu le} Take 1 capsule by mouth weekly. [facility] Cholecalcif emmanuel, Vitamin D3, 1,250 mcg (50,000 unit) capsule 08-30 00:00: 00 Yes 1{capsu le} Take 1 capsule by mouth weekly. [facility] Cholecalcif emmanuel, Vitamin D3, 1,250 mcg (50,000 unit) capsule 08-30 00:00: 00 Yes 1{capsu le} Take 1 capsule by mouth weekly. [facility] Cholecalcif emmanuel, Vitamin D3, 1,250 mcg (50,000 unit) capsule 08-30 00:00: 00 Yes 1{capsu le} Take 1 capsule by mouth weekly. [facility] Cholecalcif emmanuel, Vitamin D3, 1,250 mcg (50,000 unit) capsule 08-30 00:00: 00 Yes 1{capsu le} Take 1 capsule by mouth weekly. [facility] Cholecalcif emmanuel, Vitamin D3, 1,250 mcg (50,000 unit) capsule 08-30 00:00: 00 Yes 1{capsu le} Take 1 capsule by mouth weekly. [facility] Cholecalcif emmanuel, Vitamin D3, 1,250 mcg (50,000 unit) capsule 08-30 00:00: 00 Yes 1{capsu le} Take 1 capsule by mouth weekly. [facility] Cholecalcif emmanuel, Vitamin D3, 1,250 mcg (50,000 unit) capsule 08-30 00:00: 00 Yes 1{capsu le} Take 1 capsule by mouth weekly. [facility] Cholecalcif emmanuel, Vitamin D3, 1,250 mcg (50,000 unit) capsule 08-30 00:00: 00 Yes 1{capsu le} Take 1 capsule by mouth weekly. [facility] Cholecalcif emmanuel, Vitamin D3, 1,250 mcg (50,000 unit) capsule 08-30 00:00: 00 Yes 1{capsu le} Take 1 capsule by mouth weekly. [facility] Cholecalcif emmanuel, Vitamin D3, 1,250 mcg (50,000 unit) capsule 08-30 00:00: 00 Yes 1{capsu le} Take 1 capsule by mouth weekly. [facility] Cholecalcif emmanuel, Vitamin D3, 1,250 mcg (50,000 unit) capsule 08-30 00:00: 00 Yes 1{capsu le} Take 1 capsule by mouth weekly. [facility] Cholecalcif emmanuel, Vitamin D3, 1,250 mcg (50,000 unit) capsule 08-30 00:00: 00 Yes 1{capsu le} Take 1 capsule by mouth weekly. [facility] Cholecalcif emmanuel, Vitamin D3, 1,250 mcg (50,000 unit) capsule 08-30 00:00: 00 Yes 1{capsu le} Take 1 capsule by mouth weekly. [facility] Cholecalcif emmanuel, Vitamin D3, 1,250 mcg (50,000 unit) capsule 08-30 00:00: 00 Yes 1{capsu le} Take 1 capsule by mouth weekly. [facility] Cholecalcif emmanuel, Vitamin D3, 1,250 mcg (50,000 unit) capsule 08-30 00:00: 00 Yes 1{capsu le} Take 1 capsule by mouth weekly. [facility] Cholecalcif emmanuel, Vitamin D3, 1,250 mcg (50,000 unit) capsule 08-30 00:00: 00 Yes 1{capsu le} Take 1 capsule by mouth weekly. [facility] Cholecalcif emmanuel, Vitamin D3, 1,250 mcg (50,000 unit) capsule 08-30 00:00: 00 Yes 1{capsu le} Take 1 capsule by mouth weekly. [facility] Cholecalcif emmanuel, Vitamin D3, 1,250 mcg (50,000 unit) capsule 08-30 00:00: 00 Yes [id number] Take 1 capsule by mouth weekly. [facility] Cholecalcif emmanuel, Vitamin D3, 1,250 mcg (50,000 unit) capsule 08-30 00:00: 00 Yes [id number] Take 1 capsule by mouth weekly. [facility] Cholecalcif emmanuel, Vitamin D3, 1,250 mcg (50,000 unit) capsule 08-30 00:00: 00 Yes [id number] Take 1 capsule by mouth weekly. [facility] Cholecalcif emmanuel, Vitamin D3, 1,250 mcg (50,000 unit) capsule 08-30 00:00: 00 Yes [id number] Take 1 capsule by mouth weekly. [facility] Cholecalcif emmanuel, Vitamin D3, 1,250 mcg (50,000 unit) capsule 08-30 00:00: 00 Yes [id number] Take 1 capsule by mouth weekly. [facility] Cholecalcif emmanuel, Vitamin D3, 1,250 mcg (50,000 unit) capsule 08-30 00:00: 00 Yes [id number] Take 1 capsule by mouth weekly. [facility] Cholecalcif emmanuel, Vitamin D3, 1,250 mcg (50,000 unit) capsule 08-30 00:00: 00 Yes [id number] Take 1 capsule by mouth weekly. [facility] Cholecalcif emmanuel, Vitamin D3, 1,250 mcg (50,000 unit) capsule 08-30 00:00: 00 Yes [id number] Take 1 capsule by mouth weekly. [facility] Cholecalcif emmanuel, Vitamin D3, 1,250 mcg (50,000 unit) capsule 08-30 00:00: 00 Yes [id number] Take 1 capsule by mouth weekly. [facility] Cholecalcif emmanuel, Vitamin D3, 1,250 mcg (50,000 unit) capsule 08-30 00:00: 00 Yes [id number] Take 1 capsule by mouth weekly. [facility] Cholecalcif emmanuel, Vitamin D3, 1,250 mcg (50,000 unit) capsule 08-30 00:00: 00 Yes [id number] Take 1 capsule by mouth weekly. [facility] Cholecalcif emmanuel, Vitamin D3, 1,250 mcg (50,000 unit) capsule 08-30 00:00: 00 Yes [id number] Take 1 capsule by mouth weekly. [facility] Cholecalcif emmanuel, Vitamin D3, 1,250 mcg (50,000 unit) capsule 08-30 00:00: 00 Yes [id number] Take 1 capsule by mouth weekly. [facility] Cholecalcif emmanuel, Vitamin D3, 1,250 mcg (50,000 unit) capsule 08-30 00:00: 00 Yes [id number] Take 1 capsule by mouth weekly. [facility] Cholecalcif emmanuel, Vitamin D3, 1,250 mcg (50,000 unit) capsule 08-30 00:00: 00 Yes [id number] Take 1 capsule by mouth weekly. [facility] Cholecalcif emmanuel, Vitamin D3, 1,250 mcg (50,000 unit) capsule 08-30 00:00: 00 Yes [id number] Take 1 capsule by mouth weekly. [facility] Cholecalcif emmanuel, Vitamin D3, 1,250 mcg (50,000 unit) capsule 08-30 00:00: 00 Yes [id number] Take 1 capsule by mouth weekly. [facility] Cholecalcif emmanuel, Vitamin D3, 1,250 mcg (50,000 unit) capsule 08-30 00:00: 00 Yes [id number] Take 1 capsule by mouth weekly. [facility] Cholecalcif emmanuel, Vitamin D3, 1,250 mcg (50,000 unit) capsule 08-30 00:00: 00 Yes [id number] Take 1 capsule by mouth weekly. [facility] Cholecalcif emmanuel, Vitamin D3, 1,250 mcg (50,000 unit) capsule 08-30 00:00: 00 Yes [id number] Take 1 capsule by mouth weekly. [facility] Cholecalcif emmanuel, Vitamin D3, 1,250 mcg (50,000 unit) capsule 08-30 00:00: 00 Yes [id number] Take 1 capsule by mouth weekly. [facility] Cholecalcif emmanuel, Vitamin D3, 1,250 mcg (50,000 unit) capsule 08-30 00:00: 00 Yes [id number] Take 1 capsule by mouth weekly. [facility] Cholecalcif emmanuel, Vitamin D3, 1,250 mcg (50,000 unit) capsule 08-30 00:00: 00 Yes [id number] Take 1 capsule by mouth weekly. [facility] Cholecalcif emmanuel, Vitamin D3, 1,250 mcg (50,000 unit) capsule 08-30 00:00: 00 Yes [id number] Take 1 capsule by mouth weekly. [facility] Cholecalcif emmanuel, Vitamin D3, 1,250 mcg (50,000 unit) capsule 08-30 00:00: 00 Yes [id number] Take 1 capsule by mouth weekly. [facility] Cholecalcif emmanuel, Vitamin D3, 1,250 mcg (50,000 unit) capsule 08-30 00:00: 00 Yes [id number] Take 1 capsule by mouth weekly. [facility] Cholecalcif emmanuel, Vitamin D3, 1,250 mcg (50,000 unit) capsule 08-30 00:00: 00 Yes [id number] Take 1 capsule by mouth weekly. [facility] Cholecalcif emmanuel, Vitamin D3, 1,250 mcg (50,000 unit) capsule 08-30 00:00: 00 Yes [id number] Take 1 capsule by mouth weekly. [facility] Cholecalcif emmanuel, Vitamin D3, 1,250 mcg (50,000 unit) capsule 08-30 00:00: 00 Yes [id number] Take 1 capsule by mouth weekly. [facility] Cholecalcif emmanuel, Vitamin D3, 1,250 mcg (50,000 unit) capsule 08-30 00:00: 00 Yes [id number] Take 1 capsule by mouth weekly. [facility] Cholecalcif emmanuel, Vitamin D3, 1,250 mcg (50,000 unit) capsule 08-30 00:00: 00 Yes [id number] Take 1 capsule by mouth weekly. [facility] Cholecalcif emmanuel, Vitamin D3, 1,250 mcg (50,000 unit) capsule 08-30 00:00: 00 Yes [id number] Take 1 capsule by mouth weekly. [facility] Cholecalcif emmanuel, Vitamin D3, 1,250 mcg (50,000 unit) capsule 08-30 00:00: 00 Yes [id number] Take 1 capsule by mouth weekly. [facility] Cholecalcif emmanuel, Vitamin D3, 1,250 mcg (50,000 unit) capsule 08-30 00:00: 00 Yes [id number] Take 1 capsule by mouth weekly. [facility] Cholecalcif emmanuel, Vitamin D3, 1,250 mcg (50,000 unit) capsule 08-30 00:00: 00 Yes [id number] Take 1 capsule by mouth weekly. [facility] Cholecalcif emmanuel, Vitamin D3, 1,250 mcg (50,000 unit) capsule 08-30 00:00: 00 Yes [id number] Take 1 capsule by mouth weekly. [facility] Cholecalcif emmanuel, Vitamin D3, 1,250 mcg (50,000 unit) capsule 08-30 00:00: 00 Yes [id number] Take 1 capsule by mouth weekly. [facility] Cholecalcif emmanuel, Vitamin D3, 1,250 mcg (50,000 unit) capsule 08-30 00:00: 00 Yes [id number] Take 1 capsule by mouth weekly. [facility] Cholecalcif emmanuel, Vitamin D3, 1,250 mcg (50,000 unit) capsule 08-30 00:00: 00 Yes [id number] Take 1 capsule by mouth weekly. [facility] Cholecalcif emmanuel, Vitamin D3, 1,250 mcg (50,000 unit) capsule 08-30 00:00: 00 Yes [id number] Take 1 capsule by mouth weekly. [facility] Cholecalcif emmanuel, Vitamin D3, 1,250 mcg (50,000 unit) capsule 08-30 00:00: 00 Yes [id number] Take 1 capsule by mouth weekly. [facility] Cholecalcif emmanuel, Vitamin D3, 1,250 mcg (50,000 unit) capsule 08-30 00:00: 00 Yes [id number] Take 1 capsule by mouth weekly. [facility] Cholecalcif emmanuel, Vitamin D3, 1,250 mcg (50,000 unit) capsule 08-30 00:00: 00 Yes [id number] Take 1 capsule by mouth weekly. [facility] Cholecalcif emmanuel, Vitamin D3, 1,250 mcg (50,000 unit) capsule 08-30 00:00: 00 Yes [id number] Take 1 capsule by mouth weekly. [facility] Cholecalcif emmanuel, Vitamin D3, 1,250 mcg (50,000 unit) capsule 08-30 00:00: 00 Yes [id number] Take 1 capsule by mouth weekly. [facility] Cholecalcif emmanuel, Vitamin D3, 1,250 mcg (50,000 unit) capsule 08-30 00:00: 00 Yes [id number] Take 1 capsule by mouth weekly. [facility] Cholecalcif emmanuel, Vitamin D3, 1,250 mcg (50,000 unit) capsule 08-30 00:00: 00 Yes [id number] Take 1 capsule by mouth weekly. [facility] Cholecalcif emmanuel, Vitamin D3, 1,250 mcg (50,000 unit) capsule 08-30 00:00: 00 Yes [id number] Take 1 capsule by mouth weekly. [facility] Cholecalcif emmanuel, Vitamin D3, 1,250 mcg (50,000 unit) capsule 08-30 00:00: 00 Yes [id number] Take 1 capsule by mouth weekly. [facility] Cholecalcif emmanuel, Vitamin D3, 1,250 mcg (50,000 unit) capsule 08-30 00:00: 00 Yes [id number] Take 1 capsule by mouth weekly. [facility] Cholecalcif emmanuel, Vitamin D3, 1,250 mcg (50,000 unit) capsule 08-30 00:00: 00 Yes [id number] Take 1 capsule by mouth weekly. [facility] Cholecalcif emmanuel, Vitamin D3, 1,250 mcg (50,000 unit) capsule 08-30 00:00: 00 Yes [id number] Take 1 capsule by mouth weekly. [facility] Cholecalcif emmanuel, Vitamin D3, 1,250 mcg (50,000 unit) capsule 08-30 00:00: 00 Yes [id number] Take 1 capsule by mouth weekly. [facility] Cholecalcif emmanuel, Vitamin D3, 1,250 mcg (50,000 unit) capsule 08-30 00:00: 00 Yes [id number] Take 1 capsule by mouth weekly. [facility] Cholecalcif emmanuel, Vitamin D3, 1,250 mcg (50,000 unit) capsule 08-30 00:00: 00 Yes [id number] Take 1 capsule by mouth weekly. [facility] Cholecalcif emmanuel, Vitamin D3, 1,250 mcg (50,000 unit) capsule 08-30 00:00: 00 Yes [id number] Take 1 capsule by mouth weekly. [facility] Cholecalcif emmanuel, Vitamin D3, 1,250 mcg (50,000 unit) capsule 08-30 00:00: 00 Yes [id number] Take 1 capsule by mouth weekly. [facility] Cholecalcif emmanuel, Vitamin D3, 1,250 mcg (50,000 unit) capsule 08-30 00:00: 00 Yes [id number] Take 1 capsule by mouth weekly. [facility] Cholecalcif emmanuel, Vitamin D3, 1,250 mcg (50,000 unit) capsule 08-30 00:00: 00 Yes [id number] Take 1 capsule by mouth weekly. [facility] Cholecalcif emmanuel, Vitamin D3, 1,250 mcg (50,000 unit) capsule 08-30 00:00: 00 Yes [id number] Take 1 capsule by mouth weekly. [facility] Cholecalcif emmanuel, Vitamin D3, 1,250 mcg (50,000 unit) capsule 08-30 00:00: 00 Yes [id number] Take 1 capsule by mouth weekly. [facility] Cholecalcif emmanuel, Vitamin D3, 1,250 mcg (50,000 unit) capsule 08-30 00:00: 00 Yes [id number] Take 1 capsule by mouth weekly. [facility] Cholecalcif emmanuel, Vitamin D3, 1,250 mcg (50,000 unit) capsule 08-30 00:00: 00 Yes [id number] Take 1 capsule by mouth weekly. [facility] Cholecalcif emmanuel, Vitamin D3, 1,250 mcg (50,000 unit) capsule 08-30 00:00: 00 Yes [id number] Take 1 capsule by mouth weekly. [facility] Cholecalcif emmanuel, Vitamin D3, 1,250 mcg (50,000 unit) capsule 08-30 00:00: 00 Yes [id number] Take 1 capsule by mouth weekly. [facility] Cholecalcif emmanuel, Vitamin D3, 1,250 mcg (50,000 unit) capsule 08-30 00:00: 00 Yes [id number] Take 1 capsule by mouth weekly. [facility] Cholecalcif emmanuel, Vitamin D3, 1,250 mcg (50,000 unit) capsule 08-30 00:00: 00 Yes [id number] Take 1 capsule by mouth weekly. [facility] Cholecalcif emmanuel, Vitamin D3, 1,250 mcg (50,000 unit) capsule 08-30 00:00: 00 Yes [id number] Take 1 capsule by mouth weekly. [facility] Cholecalcif emmanuel, Vitamin D3, 1,250 mcg (50,000 unit) capsule 08-30 00:00: 00 Yes [id number] Take 1 capsule by mouth weekly. [facility] Cholecalcif emmanuel, Vitamin D3, 1,250 mcg (50,000 unit) capsule 08-30 00:00: 00 Yes [id number] Take 1 capsule by mouth weekly. [facility] Cholecalcif emmanuel, Vitamin D3, 1,250 mcg (50,000 unit) capsule 08-30 00:00: 00 Yes [id number] Take 1 capsule by mouth weekly. [facility] Cholecalcif emmanuel, Vitamin D3, 1,250 mcg (50,000 unit) capsule 08-30 00:00: 00 Yes [id number] Take 1 capsule by mouth weekly. [facility] Cholecalcif emmanuel, Vitamin D3, 1,250 mcg (50,000 unit) capsule 08-30 00:00: 00 Yes [id number] Take 1 capsule by mouth weekly. [facility] Cholecalcif emmanuel, Vitamin D3, 1,250 mcg (50,000 unit) capsule 08-30 00:00: 00 Yes [id number] Take 1 capsule by mouth weekly. [facility] Cholecalcif emmanuel, Vitamin D3, 1,250 mcg (50,000 unit) capsule 08-30 00:00: 00 Yes [id number] Take 1 capsule by mouth weekly. [facility] Cholecalcif emmanuel, Vitamin D3, 1,250 mcg (50,000 unit) capsule 08-30 00:00: 00 Yes [id number] Take 1 capsule by mouth weekly. [facility] Cholecalcif emmanuel, Vitamin D3, 1,250 mcg (50,000 unit) capsule 08-30 00:00: 00 Yes [id number] Take 1 capsule by mouth weekly. [facility] Cholecalcif emmanuel, Vitamin D3, 1,250 mcg (50,000 unit) capsule 08-30 00:00: 00 Yes [id number] Take 1 capsule by mouth weekly. [facility] Cholecalcif emmanuel, Vitamin D3, 1,250 mcg (50,000 unit) capsule 08-30 00:00: 00 Yes [id number] Take 1 capsule by mouth weekly. [facility] Cholecalcif emmanuel, Vitamin D3, 1,250 mcg (50,000 unit) capsule 08-30 00:00: 00 Yes [id number] Take 1 capsule by mouth weekly. [facility] Cholecalcif emmanuel, Vitamin D3, 1,250 mcg (50,000 unit) capsule 08-30 00:00: 00 Yes [id number] Take 1 capsule by mouth weekly. [facility] Cholecalcif emmanuel, Vitamin D3, 1,250 mcg (50,000 unit) capsule 08-30 00:00: 00 Yes [id number] Take 1 capsule by mouth weekly. [facility] Cholecalcif emmanuel, Vitamin D3, 1,250 mcg (50,000 unit) capsule 08-30 00:00: 00 Yes [id number] Take 1 capsule by mouth weekly. [facility] Cholecalcif emmanuel, Vitamin D3, 1,250 mcg (50,000 unit) capsule 08-30 00:00: 00 Yes [id number] Take 1 capsule by mouth weekly. [facility] Cholecalcif emmanuel, Vitamin D3, 1,250 mcg (50,000 unit) capsule 08-30 00:00: 00 Yes [id number] Take 1 capsule by mouth weekly. [facility] Cholecalcif emmanuel, Vitamin D3, 1,250 mcg (50,000 unit) capsule 08-30 00:00: 00 Yes [id number] Take 1 capsule by mouth weekly. [facility] Cholecalcif emmanuel, Vitamin D3, 1,250 mcg (50,000 unit) capsule 08-30 00:00: 00 Yes [id number] Take 1 capsule by mouth weekly. [facility] Cholecalcif emmanuel, Vitamin D3, 1,250 mcg (50,000 unit) capsule 08-30 00:00: 00 Yes [id number] Take 1 capsule by mouth weekly. [facility] Cholecalcif emmanuel, Vitamin D3, 1,250 mcg (50,000 unit) capsule 08-30 00:00: 00 Yes [id number] Take 1 capsule by mouth weekly. [facility] Cholecalcif emmanuel, Vitamin D3, 1,250 mcg (50,000 unit) capsule 08-30 00:00: 00 Yes [id number] Take 1 capsule by mouth weekly. [facility] Cholecalcif emmanuel, Vitamin D3, 1,250 mcg (50,000 unit) capsule 08-30 00:00: 00 Yes [id number] Take 1 capsule by mouth weekly. [facility] Cholecalcif emmanuel, Vitamin D3, 1,250 mcg (50,000 unit) capsule 08-30 00:00: 00 Yes [id number] Take 1 capsule by mouth weekly. [facility] Cholecalcif emmanuel, Vitamin D3, 1,250 mcg (50,000 unit) capsule 08-30 00:00: 00 Yes [id number] Take 1 capsule by mouth weekly. [facility] Cholecalcif emmanuel, Vitamin D3, 1,250 mcg (50,000 unit) capsule 08-30 00:00: 00 Yes [id number] Take 1 capsule by mouth weekly. [facility] Cholecalcif emmanuel, Vitamin D3, 1,250 mcg (50,000 unit) capsule 08-30 00:00: 00 Yes [id number] Take 1 capsule by mouth weekly. [facility] Cholecalcif emmanuel, Vitamin D3, 1,250 mcg (50,000 unit) capsule 08-30 00:00: 00 Yes [id number] Take 1 capsule by mouth weekly. [facility] Cholecalcif emmanuel, Vitamin D3, 1,250 mcg (50,000 unit) capsule 08-30 00:00: 00 Yes [id number] Take 1 capsule by mouth weekly. [facility] Cholecalcif emmanuel, Vitamin D3, 1,250 mcg (50,000 unit) capsule 08-30 00:00: 00 Yes [id number] Take 1 capsule by mouth weekly. [facility] Cholecalcif emmanuel, Vitamin D3, 1,250 mcg (50,000 unit) capsule 08-30 00:00: 00 Yes [id number] Take 1 capsule by mouth weekly. [facility] Cholecalcif emmanuel, Vitamin D3, 1,250 mcg (50,000 unit) capsule 08-30 00:00: 00 Yes [id number] Take 1 capsule by mouth weekly. [facility] Cholecalcif emmanuel, Vitamin D3, 1,250 mcg (50,000 unit) capsule 08-30 00:00: 00 Yes [id number] Take 1 capsule by mouth weekly. [facility] Cholecalcif emmanuel, Vitamin D3, 1,250 mcg (50,000 unit) capsule 08-30 00:00: 00 Yes [id number] Take 1 capsule by mouth weekly. [facility] Cholecalcif emmanuel, Vitamin D3, 1,250 mcg (50,000 unit) capsule 08-30 00:00: 00 Yes [id number] Take 1 capsule by mouth weekly. [facility] Cholecalcif emmanuel, Vitamin D3, 1,250 mcg (50,000 unit) capsule 08-30 00:00: 00 Yes [id number] Take 1 capsule by mouth weekly. [facility] Cholecalcif emmanuel, Vitamin D3, 1,250 mcg (50,000 unit) capsule 08-30 00:00: 00 Yes [id number] Take 1 capsule by mouth weekly. [facility] Cholecalcif emmanuel, Vitamin D3, 1,250 mcg (50,000 unit) capsule 08-30 00:00: 00 Yes [id number] Take 1 capsule by mouth weekly. [facility] Cholecalcif emmanuel, Vitamin D3, 1,250 mcg (50,000 unit) capsule 08-30 00:00: 00 Yes [id number] Take 1 capsule by mouth weekly. [facility] Cholecalcif emmanuel, Vitamin D3, 1,250 mcg (50,000 unit) capsule 08-30 00:00: 00 Yes [id number] Take 1 capsule by mouth weekly. [facility] Cholecalcif emmanuel, Vitamin D3, 1,250 mcg (50,000 unit) capsule 08-30 00:00: 00 Yes [id number] Take 1 capsule by mouth weekly. [facility] Cholecalcif emmanuel, Vitamin D3, 1,250 mcg (50,000 unit) capsule 08-30 00:00: 00 Yes [id number] Take 1 capsule by mouth weekly. [facility] Cholecalcif emmanuel, Vitamin D3, 1,250 mcg (50,000 unit) capsule 08-30 00:00: 00 Yes [id number] Take 1 capsule by mouth weekly. [facility] Cholecalcif emmanuel, Vitamin D3, 1,250 mcg (50,000 unit) capsule 08-30 00:00: 00 Yes [id number] Take 1 capsule by mouth weekly. [facility] Cholecalcif emmanuel, Vitamin D3, 1,250 mcg (50,000 unit) capsule 08-30 00:00: 00 Yes [id number] Take 1 capsule by mouth weekly. [facility] Cholecalcif emmanuel, Vitamin D3, 1,250 mcg (50,000 unit) capsule 08-30 00:00: 00 Yes [id number] Take 1 capsule by mouth weekly. [facility] Cholecalcif emmanuel, Vitamin D3, 1,250 mcg (50,000 unit) capsule 08-30 00:00: 00 Yes [id number] Take 1 capsule by mouth weekly. [facility] Cholecalcif emmanuel, Vitamin D3, 1,250 mcg (50,000 unit) capsule 2022-0 08-30 00:00: 00 Yes [id number] Take 1 capsule by mouth weekly. [facility] 20[facility]-0 -18 00:00: 00 Yes [id number] 1mg Take 1 tablet by mouth in the morning and 1 tablet at noon and 1 tablet in the evening. [facility] clonazePAM 1 mg tablet 2022-0 18 00:00: 00 Yes [id number] 1mg Take 1 tablet by mouth in the morning and 1 tablet at noon and 1 tablet in the evening. [facility] clonazePAM 1 mg tablet 2022-0 18 00:00: 00 Yes [id number] 1mg Take 1 tablet by mouth in the morning and 1 tablet at noon and 1 tablet in the evening. [facility] clonazePAM 1 mg tablet 2022-0 18 00:00: 00 Yes [id number] 1mg Take 1 tablet by mouth in the morning and 1 tablet at noon and 1 tablet in the evening. [facility] clonazePAM 1 mg tablet 2022-0 18 00:00: 00 Yes [id number] 1mg Take 1 tablet by mouth in the morning and 1 tablet at noon and 1 tablet in the evening. [facility] clonazePAM 1 mg tablet 2022-0 18 00:00: 00 Yes [id number] 1mg Take 1 tablet by mouth in the morning and 1 tablet at noon and 1 tablet in the evening. [facility] clonazePAM 1 mg tablet 2022-0 18 00:00: 00 Yes [id number] 1mg Take 1 tablet by mouth in the morning and 1 tablet at noon and 1 tablet in the evening. [facility] clonazePAM 1 mg tablet 3-0 18 00:00: 00 Yes [id number] 1mg Take 1 tablet by mouth in the morning and 1 tablet at noon and 1 tablet in the evening. [facility] clonazePAM 1 mg tablet 3-0 18 00:00: 00 Yes [id number] 1mg Take 1 tablet by mouth in the morning and 1 tablet at noon and 1 tablet in the evening. [facility] clonazePAM 1 mg tablet 2023-0 -18 00:00: 00 Yes [id number] 1mg Take 1 tablet by mouth in the morning and 1 tablet at noon and 1 tablet in the evening. [facility] clonazePAM 1 mg tablet 3-0 -18 00:00: 00 Yes [id number] 1mg Take 1 tablet by mouth in the morning and 1 tablet at noon and 1 tablet in the evening. [facility] clonazePAM 1 mg tablet 3-0 -18 00:00: 00 Yes [id number] 1mg Take 1 tablet by mouth in the morning and 1 tablet at noon and 1 tablet in the evening. [facility] clonazePAM 1 mg tablet 3-0 -18 00:00: 00 Yes [id number] 1mg Take 1 tablet by mouth in the morning and 1 tablet at noon and 1 tablet in the evening. [facility] clonazePAM 1 mg tablet 3-0 -18 00:00: 00 Yes [id number] 1mg Take 1 tablet by mouth in the morning and 1 tablet at noon and 1 tablet in the evening. [facility] clonazePAM 1 mg tablet 3-0 -18 00:00: 00 Yes [id number] 1mg Take 1 tablet by mouth in the morning and 1 tablet at noon and 1 tablet in the evening. [facility] clonazePAM 1 mg tablet 3-0 -18 00:00: 00 Yes [id number] 1mg Take 1 tablet by mouth in the morning and 1 tablet at noon and 1 tablet in the evening. [facility] clonazePAM 1 mg tablet 3-0 -18 00:00: 00 Yes [id number] 1mg Take 1 tablet by mouth in the morning and 1 tablet at noon and 1 tablet in the evening. [facility] clonazePAM 1 mg tablet 3-0 -18 00:00: 00 Yes [id number] 1mg Take 1 tablet by mouth in the morning and 1 tablet at noon and 1 tablet in the evening. [facility] clonazePAM 1 mg tablet 3-0 -18 00:00: 00 Yes [id number] 1mg Take 1 tablet by mouth in the morning and 1 tablet at noon and 1 tablet in the evening. [facility] clonazePAM 1 mg tablet 2022-0 -18 00:00: 00 Yes [id number] 1mg Take 1 tablet by mouth in the morning and 1 tablet at noon and 1 tablet in the evening. [facility] clonazePAM 1 mg tablet 2022-0 -18 00:00: 00 Yes [id number] 1mg Take 1 tablet by mouth in the morning and 1 tablet at noon and 1 tablet in the evening. [facility] clonazePAM 1 mg tablet 2022-0 -18 00:00: 00 Yes [id number] 1mg Take 1 tablet by mouth in the morning and 1 tablet at noon and 1 tablet in the evening. [facility] clonazePAM 1 mg tablet 2022-0 -18 00:00: 00 Yes [id number] 1mg Take 1 tablet by mouth in the morning and 1 tablet at noon and 1 tablet in the evening. [facility] clonazePAM 1 mg tablet 2022-0 18 00:00: 00 Yes [id number] 1mg Take 1 tablet by mouth in the morning and 1 tablet at noon and 1 tablet in the evening. [facility] clonazePAM 1 mg tablet 2022-0 18 00:00: 00 10-15 00:00 :00 No [id number] 1mg Take 1 tablet by mouth in the morning and 1 tablet at noon and 1 tablet in the evening. [facility] TIZANIDINE 4 mg tablet 2022-0 17 00:00: 00 Yes [id number] TAKE 1 TABLET BY MOUTH EVERY 8 HOURS NEEDED [facility] TIZANIDINE 4 mg tablet 3-0 -17 00:00: 00 Yes [id number] TAKE 1 TABLET BY MOUTH EVERY 8 HOURS NEEDED [facility] TIZANIDINE 4 mg tablet 3-0 -17 00:00: 00 Yes [id number] TAKE 1 TABLET BY MOUTH EVERY 8 HOURS NEEDED [facility] TIZANIDINE 4 mg tablet 3-0 -17 00:00: 00 Yes [id number] TAKE 1 TABLET BY MOUTH EVERY 8 HOURS NEEDED [facility] TIZANIDINE 4 mg tablet 2022-0 1-17 00:00: 00 Yes [id number] TAKE 1 TABLET BY MOUTH EVERY 8 HOURS NEEDED [facility] TIZANIDINE 4 mg tablet 3-0 -17 00:00: 00 Yes [id number] TAKE 1 TABLET BY MOUTH EVERY 8 HOURS NEEDED [facility] TIZANIDINE 4 mg tablet 3-0 -17 00:00: 00 Yes [id number] TAKE 1 TABLET BY MOUTH EVERY 8 HOURS NEEDED [facility] TIZANIDINE 4 mg tablet 3-0 17 00:00: 00 Yes [id number] TAKE 1 TABLET BY MOUTH EVERY 8 HOURS NEEDED [facility] TIZANIDINE 4 mg tablet 3-0 17 00:00: 00 Yes [id number] TAKE 1 TABLET BY MOUTH EVERY 8 HOURS [facility]-0 17 00:00: 00 Yes [id number] TAKE 1 TABLET BY MOUTH EVERY 8 HOURS NEEDED [facility] TIZANIDINE 4 mg tablet 2022-0 17 00:00: 00 Yes [id number] TAKE 1 TABLET BY MOUTH EVERY 8 HOURS NEEDED [facility] TIZANIDINE 4 mg tablet 3-0 17 00:00: 00 Yes [id number] TAKE 1 TABLET BY MOUTH EVERY 8 HOURS NEEDED [facility] T[facility] mg tablet 3-0 17 00:00: 00 Yes [id number] TAKE 1 TABLET BY MOUTH EVERY 8 HOURS NEEDED [facility] TIZANIDINE 4 mg tablet 3-0 17 00:00: 00 Yes [id number] TAKE 1 TABLET BY MOUTH EVERY 8 HOURS NEEDED [facility] TIZANIDINE 4 mg tablet 3-0 -17 00:00: 00 Yes [id number] TAKE 1 TABLET BY MOUTH EVERY 8 HOURS NEEDED [facility] TIZANIDINE 4 mg tablet 3-0 -17 00:00: 00 Yes [id number] TAKE 1 TABLET BY MOUTH EVERY 8 HOURS NEEDED [facility] TIZANIDINE 4 mg tablet 3-0 -17 00:00: 00 Yes [id number] TAKE 1 TABLET BY MOUTH EVERY 8 HOURS NEEDED [facility] TIZANIDINE 4 mg tablet 3-0 1-17 00:00: 00 Yes [id number] TAKE 1 TABLET BY MOUTH EVERY 8 HOURS NEEDED [facility] TIZANIDINE 4 mg tablet 3-0 1-17 00:00: 00 Yes [id number] TAKE 1 TABLET BY MOUTH EVERY 8 HOURS NEEDED [facility] TIZANIDINE 4 mg tablet 3-0 -17 00:00: 00 Yes [id number] TAKE 1 TABLET BY MOUTH EVERY 8 HOURS NEEDED [facility] TIZANIDINE 4 mg tablet 3-0 -17 00:00: 00 Yes [id number] TAKE 1 TABLET BY MOUTH EVERY 8 HOURS NEEDED [facility] TIZANIDINE 4 mg tablet 3-0 -17 00:00: 00 Yes [id number] TAKE 1 TABLET BY MOUTH EVERY 8 HOURS NEEDED [facility] TIZANIDINE 4 mg tablet 3-0 -17 00:00: 00 Yes [id number] TAKE 1 TABLET BY MOUTH EVERY 8 HOURS NEEDED [facility] TIZANIDINE 4 mg tablet 3-0 -17 00:00: 00 Yes [id number] TAKE 1 TABLET BY MOUTH EVERY 8 HOURS NEEDED [facility] TIZANIDINE 4 mg tablet 3-0 -17 00:00: 00 Yes [id number] TAKE 1 TABLET BY MOUTH EVERY 8 HOURS NEEDED [facility] TIZANIDINE 4 mg tablet 3-0 -17 00:00: 00 Yes [id number] TAKE 1 TABLET BY MOUTH EVERY 8 HOURS NEEDED [facility] TIZANIDINE 4 mg tablet 3-0 -17 00:00: 00 Yes [id number] TAKE 1 TABLET BY MOUTH EVERY 8 HOURS NEEDED [facility] TIZANIDINE 4 mg tablet 3-0 1-17 00:00: 00 Yes [id number] TAKE 1 TABLET BY MOUTH EVERY 8 HOURS NEEDED [facility] TIZANIDINE 4 mg tablet 3-0 1-17 00:00: 00 Yes [id number] TAKE 1 TABLET BY MOUTH EVERY 8 HOURS NEEDED [facility] TIZANIDINE 4 mg tablet 3-0 1-17 00:00: 00 Yes [id number] TAKE 1 TABLET BY MOUTH EVERY 8 HOURS NEEDED [facility] TIZANIDINE 4 mg tablet 3-0 -17 00:00: 00 Yes [id number] TAKE 1 TABLET BY MOUTH EVERY 8 HOURS NEEDED [facility] TIZANIDINE 4 mg tablet 3-0 -17 00:00: 00 Yes [id number] TAKE 1 TABLET BY MOUTH EVERY 8 HOURS NEEDED [facility] TIZANIDINE 4 mg tablet 3-0 17 00:00: 00 Yes [id number] TAKE 1 TABLET BY MOUTH EVERY 8 HOURS NEEDED [facility] TIZANIDINE 4 mg tablet 3-0 17 00:00: 00 Yes [id number] TAKE 1 TABLET BY MOUTH EVERY 8 HOURS NEEDED [facility] 3-0 17 00:00: 00 Yes [id number] TAKE 1 TABLET BY MOUTH EVERY 8 HOURS NEEDED [facility] TIZANIDINE 4 mg tablet 2022-0 17 00:00: 00 Yes [id number] TAKE 1 TABLET BY MOUTH EVERY 8 HOURS NEEDED [facility] TIZANIDINE 4 mg tablet 3-0 17 00:00: 00 Yes [id number] TAKE 1 TABLET BY MOUTH EVERY 8 HOURS NEEDED [facility] TIZANID[facility] 4 mg tablet 3-0 17 00:00: 00 Yes [id number] TAKE 1 TABLET BY MOUTH EVERY 8 HOURS NEEDED [facility] TIZANIDINE 4 mg tablet 3-0 17 00:00: 00 Yes [id number] TAKE 1 TABLET BY MOUTH EVERY 8 HOURS NEEDED [facility] TIZANIDINE 4 mg tablet 3-0 -17 00:00: 00 Yes [id number] TAKE 1 TABLET BY MOUTH EVERY 8 HOURS NEEDED [facility] TIZANIDINE 4 mg tablet 3-0 -17 00:00: 00 Yes [id number] TAKE 1 TABLET BY MOUTH EVERY 8 HOURS NEEDED [facility] TIZANIDINE 4 mg tablet 3-0 -17 00:00: 00 Yes [id number] TAKE 1 TABLET BY MOUTH EVERY 8 HOURS NEEDED [facility] TIZANIDINE 4 mg tablet 3-0 1-17 00:00: 00 Yes [id number] TAKE 1 TABLET BY MOUTH EVERY 8 HOURS NEEDED [facility] TIZANIDINE 4 mg tablet 3-0 1-17 00:00: 00 Yes [id number] TAKE 1 TABLET BY MOUTH EVERY 8 HOURS NEEDED [facility] TIZANIDINE 4 mg tablet 3-0 -17 00:00: 00 Yes [id number] TAKE 1 TABLET BY MOUTH EVERY 8 HOURS NEEDED [facility] TIZANIDINE 4 mg tablet 3-0 -17 00:00: 00 Yes [id number] TAKE 1 TABLET BY MOUTH EVERY 8 HOURS NEEDED [facility] TIZANIDINE 4 mg tablet 3-0 -17 00:00: 00 Yes [id number] TAKE 1 TABLET BY MOUTH EVERY 8 HOURS NEEDED [facility] TIZANIDINE 4 mg tablet 3-0 -17 00:00: 00 Yes [id number] TAKE 1 TABLET BY MOUTH EVERY 8 HOURS NEEDED [facility] TIZANIDINE 4 mg tablet 3-0 -17 00:00: 00 Yes [id number] TAKE 1 TABLET BY MOUTH EVERY 8 HOURS NEEDED [facility] TIZANIDINE 4 mg tablet 3-0 -17 00:00: 00 Yes [id number] TAKE 1 TABLET BY MOUTH EVERY 8 HOURS NEEDED [facility] TIZANIDINE 4 mg tablet 3-0 -17 00:00: 00 Yes [id number] TAKE 1 TABLET BY MOUTH EVERY 8 HOURS NEEDED [facility] TIZANIDINE 4 mg tablet 3-0 -17 00:00: 00 Yes [id number] TAKE 1 TABLET BY MOUTH EVERY 8 HOURS NEEDED [facility] TIZANIDINE 4 mg tablet 3-0 1-17 00:00: 00 Yes [id number] TAKE 1 TABLET BY MOUTH EVERY 8 HOURS NEEDED [facility] TIZANIDINE 4 mg tablet 3-0 1-17 00:00: 00 Yes [id number] TAKE 1 TABLET BY MOUTH EVERY 8 HOURS NEEDED [facility] TIZANIDINE 4 mg tablet 3-0 1-17 00:00: 00 Yes [id number] TAKE 1 TABLET BY MOUTH EVERY 8 HOURS NEEDED Univers [facility] TIZANIDINE 4 mg tablet 0 17 00:00: 00 12-08 00:00 :00 No [id number] TAKE 1 TABLET BY MOUTH EVERY 8 HOURS NEEDED [facility] venlafaxine XR 37.5 mg 24 hr capsule 0 14 00:00: 00 Yes TAKE 1 CAPSULE BY MOUTH EVERY MORNING WITH VENLAFAXIN E ER 150MG [facility] venlafaxine XR 37.5 mg 24 hr capsule 2022-0 14 00:00: 00 Yes TAKE 1 CAPSULE BY MOUTH EVERY MORNING WITH VENLAFAXIN E ER 150MG [facility] venlafaxine XR 37.5 mg 24 hr capsule 0 14 00:00: 00 Yes TAKE 1 CAPSULE BY MOUTH EVERY MORNING WITH VENLAFAXIN E ER 150MG [facility] venlafaxine XR 37.5 mg 24 hr capsule 0 14 00:00: 00 Yes TAKE 1 CAPSULE BY MOUTH EVERY MORNING WITH VENLAFAXIN E ER 150MG [facility] venlafaxine XR 37.5 mg 24 hr capsule 0 14 00:00: 00 Yes TAKE 1 CAPSULE BY MOUTH EVERY MORNING WITH VENLAFAXIN E ER 150MG [facility] venlafaxine XR 37.5 mg 24 hr capsule 2022-0 14 00:00: 00 Yes TAKE 1 CAPSULE BY MOUTH EVERY MORNING WITH VENLAFAXIN E ER 150MG [facility] venlafaxine XR 37.5 mg 24 hr capsule 0 14 00:00: 00 Yes TAKE 1 CAPSULE BY MOUTH EVERY MORNING WITH VENLAFAXIN E ER 150MG [facility]5 [facility] 24 hr capsule 0 14 00:00: 00 Yes TAKE 1 CAPSULE BY MOUTH EVERY MORNING WITH VENLAFAXIN E ER 150MG [facility] 37.5 mg 24 hr capsule 2022-0 -14 00:00: 00 Yes TAKE 1 CAPSULE BY MOUTH EVERY MORNING WITH VENLAFAXIN E ER 150MG [facility] venlafaxine XR 37.5 mg 24 hr capsule 2022-0 -14 00:00: 00 Yes TAKE 1 CAPSULE BY MOUTH EVERY MORNING WITH VENLAFAXIN E ER 150MG [facility] venlafaxine XR 37.5 mg 24 hr capsule 2022-0 -14 00:00: 00 Yes TAKE 1 CAPSULE BY MOUTH EVERY MORNING WITH VENLAFAXIN E ER 150MG [facility] venlafaxine XR 37.5 mg 24 hr capsule 0 -14 00:00: 00 Yes TAKE 1 CAPSULE BY MOUTH EVERY MORNING WITH VENLAFAXIN E ER 150MG [facility] venlafaxine XR 37.5 mg 24 hr capsule 0 14 00:00: 00 Yes TAKE 1 CAPSULE BY MOUTH EVERY MORNING WITH VENLAFAXIN E ER 150MG [facility] 37.5 mg 24 hr capsule 2022-0 -14 00:00: 00 Yes TAKE 1 CAPSULE BY MOUTH EVERY MORNING WITH VENLAFAXIN E ER 150MG [facility] ity [facility] venlafaxine XR 37.5 mg 24 hr capsule 0 -14 00:00: 00 Yes TAKE 1 CAPSULE BY MOUTH EVERY MORNING WITH VENLAFAXIN E ER 150MG [facility] ity [facility] venlafaxine XR 37.5 mg 24 hr capsule 0 14 00:00: 00 Yes TAKE 1 CAPSULE BY MOUTH EVERY MORNING WITH VENLAFAXIN E ER 150MG [facility] venlafaxine XR 37.5 mg 24 hr capsule 2022-0 -14 00:00: 00 Yes TAKE 1 CAPSULE BY MOUTH EVERY MORNING WITH VENLAFAXIN E ER 150MG [facility] venlafaxine XR 37.5 mg 24 hr capsule 2022-0 -14 00:00: 00 Yes TAKE 1 CAPSULE BY MOUTH EVERY MORNING WITH VENLAFAXIN E ER 150MG [facility] venlafaxine XR 37.5 mg 24 hr capsule 2022-0 -14 00:00: 00 Yes TAKE 1 CAPSULE BY MOUTH EVERY MORNING WITH VENLAFAXIN E ER 150MG [facility] venlafaxine XR 37.5 mg 24 hr capsule 2022-0 -14 00:00: 00 Yes TAKE 1 CAPSULE BY MOUTH EVERY MORNING WITH VENLAFAXIN E ER 150MG [facility] venlafaxine XR 37.5 mg 24 hr capsule 2022-0 -14 00:00: 00 Yes TAKE 1 CAPSULE BY MOUTH EVERY MORNING WITH VENLAFAXIN E ER 150MG [facility] venlafaxine XR 37.5 mg 24 hr capsule 2022-0 14 00:00: 00 Yes TAKE 1 CAPSULE BY MOUTH EVERY MORNING WITH VENLAFAXIN E ER 150MG [facility] ity [facility] venlafaxine XR 37.5 mg 24 hr capsule 2022-0 14 00:00: 00 Yes TAKE 1 CAPSULE BY MOUTH EVERY MORNING WITH VENLAFAXIN E ER 150MG [facility] ity [facility] venlafaxine XR 37.5 mg 24 hr capsule 2022-0 14 00:00: 00 Yes TAKE 1 CAPSULE BY MOUTH EVERY MORNING WITH VENLAFAXIN E ER 150MG [facility] ity [facility] venlafaxine XR 37.5 mg 24 hr capsule 0 14 00:00: 00 Yes TAKE 1 CAPSULE BY MOUTH EVERY MORNING WITH VENLAFAXIN E ER 150MG [facility] venlafaxine XR 37.5 mg 24 hr capsule 2022-0 14 00:00: 00 Yes TAKE 1 CAPSULE BY MOUTH EVERY MORNING WITH VENLAFAXIN E ER 150MG [facility] ity [facility] venlafaxine XR 37.5 mg 24 hr capsule 2022-0 14 00:00: 00 Yes TAKE 1 CAPSULE BY MOUTH EVERY MORNING WITH VENLAFAXIN E ER 150MG [facility] venlafaxine XR 37.5 mg 24 hr capsule 2022-0 14 00:00: 00 Yes TAKE 1 CAPSULE BY MOUTH EVERY MORNING WITH VENLAFAXIN E ER 150MG [facility] venlafaxine XR 37.5 mg 24 hr capsule 2022-0 -14 00:00: 00 Yes TAKE 1 CAPSULE BY MOUTH EVERY MORNING WITH VENLAFAXIN E ER 150MG [facility] venlafaxine XR 37.5 mg 24 hr capsule 2022-0 -14 00:00: 00 Yes TAKE 1 CAPSULE BY MOUTH EVERY MORNING WITH VENLAFAXIN E ER 150MG [facility] venlafaxine XR 37.5 mg 24 hr capsule 2022-0 -14 00:00: 00 Yes TAKE 1 CAPSULE BY MOUTH EVERY MORNING WITH VENLAFAXIN E ER 150MG [facility] venlafaxine XR 37.5 mg 24 hr capsule 2022-0 -14 00:00: 00 Yes TAKE 1 CAPSULE BY MOUTH EVERY MORNING WITH VENLAFAXIN E ER 150MG [facility] venlafaxine XR 37.5 mg 24 hr capsule 0 -14 00:00: 00 Yes TAKE 1 CAPSULE BY MOUTH EVERY MORNING WITH VENLAFAXIN E ER 150MG [facility] venlafaxine XR 37.5 mg 24 hr capsule 0 14 00:00: 00 Yes TAKE 1 CAPSULE BY MOUTH EVERY MORNING WITH VENLAFAXIN E ER 150MG [facility] 37.5 mg 24 hr capsule 0 -14 00:00: 00 Yes TAKE 1 CAPSULE BY MOUTH EVERY MORNING WITH VENLAFAXIN E ER 150MG [facility] 37.5 mg 24 hr capsule 2022-0 -14 00:00: 00 Yes TAKE 1 CAPSULE BY MOUTH EVERY MORNING WITH VENLAFAXIN E ER 150MG [facility] ity [facility] venlafaxine XR 37.5 mg 24 hr capsule 2022-0 14 00:00: 00 Yes TAKE 1 CAPSULE BY MOUTH EVERY MORNING WITH VENLAFAXIN E ER 150MG [facility] ity [facility] venlafaxine XR 37.5 mg 24 hr capsule 2022-0 -14 00:00: 00 Yes TAKE 1 CAPSULE BY MOUTH EVERY MORNING WITH VENLAFAXIN E ER 150MG [facility] ity [facility] venlafaxine XR 37.5 mg 24 hr capsule 2022-0 -14 00:00: 00 Yes TAKE 1 CAPSULE BY MOUTH EVERY MORNING WITH VENLAFAXIN E ER 150MG [facility] ity [facility] venlafaxine XR 37.5 mg 24 hr capsule 2022-0 -14 00:00: 00 Yes TAKE 1 CAPSULE BY MOUTH EVERY MORNING WITH VENLAFAXIN E ER 150MG [facility] ity [facility] venlafaxine XR 37.5 mg 24 hr capsule 2022-0 -14 00:00: 00 Yes TAKE 1 CAPSULE BY MOUTH EVERY MORNING WITH VENLAFAXIN E ER 150MG [facility] venlafaxine XR 37.5 mg 24 hr capsule 2022-0 -14 00:00: 00 Yes TAKE 1 CAPSULE BY MOUTH EVERY MORNING WITH VENLAFAXIN E ER 150MG [facility] venlafaxine XR 37.5 mg 24 hr capsule 2022-0 -14 00:00: 00 Yes TAKE 1 CAPSULE BY MOUTH EVERY MORNING WITH VENLAFAXIN E ER 150MG [facility] venlafaxine XR 37.5 mg 24 hr capsule 2022-0 14 00:00: 00 Yes TAKE 1 CAPSULE BY MOUTH EVERY MORNING WITH VENLAFAXIN E ER 150MG [facility] ity [facility] venlafaxine XR 37.5 mg 24 hr capsule 2022-0 14 00:00: 00 Yes TAKE 1 CAPSULE BY MOUTH EVERY MORNING WITH VENLAFAXIN E ER 150MG [facility] ity [facility] venlafaxine XR 37.5 mg 24 hr capsule 2022-0 14 00:00: 00 Yes TAKE 1 CAPSULE BY MOUTH EVERY MORNING WITH VENLAFAXIN E ER 150MG [facility] venlafaxine XR 37.5 mg 24 hr capsule 2022-0 14 00:00: 00 Yes TAKE 1 CAPSULE BY MOUTH EVERY MORNING WITH VENLAFAXIN E ER 150MG [facility] venlafaxine XR 37.5 mg 24 hr capsule 2022-0 -14 00:00: 00 Yes TAKE 1 CAPSULE BY MOUTH EVERY MORNING WITH VENLAFAXIN E ER 150MG [facility] venlafaxine XR 37.5 mg 24 hr capsule 2022-0 14 00:00: 00 Yes TAKE 1 CAPSULE BY MOUTH EVERY MORNING WITH VENLAFAXIN E ER 150MG [facility] venlafaxine XR 37.5 mg 24 hr capsule 2022-0 -14 00:00: 00 Yes TAKE 1 CAPSULE BY MOUTH EVERY MORNING WITH VENLAFAXIN E ER 150MG [facility] venlafaxine XR 37.5 mg 24 hr capsule 2022-0 -14 00:00: 00 Yes TAKE 1 CAPSULE BY MOUTH EVERY MORNING WITH VENLAFAXIN E ER 150MG [facility] venlafaxine XR 37.5 mg 24 hr capsule 0 -14 00:00: 00 Yes TAKE 1 CAPSULE BY MOUTH EVERY MORNING WITH VENLAFAXIN E ER 150MG [facility] venlafaxine XR 37.5 mg 24 hr capsule 0 14 00:00: 00 Yes TAKE 1 CAPSULE BY MOUTH EVERY MORNING WITH VENLAFAXIN E ER 150MG [facility] venlafaxine XR 37.5 mg 24 hr capsule 0 14 00:00: 00 Yes TAKE 1 CAPSULE BY MOUTH EVERY MORNING WITH VENLAFAXIN E ER 150MG [facility] venlafaxine XR 37.5 mg 24 hr capsule 0 14 00:00: 00 Yes TAKE 1 CAPSULE BY MOUTH EVERY MORNING WITH VENLAFAXIN E ER 150MG [facility] venlafaxine XR 37.5 mg 24 hr capsule 0 14 00:00: 00 Yes TAKE 1 CAPSULE BY MOUTH EVERY MORNING WITH VENLAFAXIN E ER 150MG [facility] venlafaxine XR 37.5 mg 24 hr capsule 2022-0 14 00:00: 00 Yes TAKE 1 CAPSULE BY MOUTH EVERY MORNING WITH VENLAFAXIN E ER 150MG [facility] venlafaxine XR 37.5 mg 24 hr capsule 2022-0 14 00:00: 00 Yes TAKE 1 CAPSULE BY MOUTH EVERY MORNING WITH VENLAFAXIN E ER 150MG [facility] venlafaxine XR 37.5 mg 24 hr capsule 0 -14 00:00: 00 Yes TAKE 1 CAPSULE BY MOUTH EVERY MORNING WITH VENLAFAXIN E ER 150MG [facility] venlafaxine XR 37.5 mg 24 hr capsule 0 -14 00:00: 00 Yes TAKE 1 CAPSULE BY MOUTH EVERY MORNING WITH VENLAFAXIN E ER 150MG [facility] venlafaxine XR 37.5 mg 24 hr capsule 2022-0 -14 00:00: 00 Yes TAKE 1 CAPSULE BY MOUTH EVERY MORNING WITH VENLAFAXIN E ER 150MG [facility] venlafaxine XR 37.5 mg 24 hr capsule 2022-0 -14 00:00: 00 Yes TAKE 1 CAPSULE BY MOUTH EVERY MORNING WITH VENLAFAXIN E ER 150MG [facility] venlafaxine XR 37.5 mg 24 hr capsule 2022-0 -14 00:00: 00 Yes TAKE 1 CAPSULE BY MOUTH EVERY MORNING WITH VENLAFAXIN E ER 150MG [facility] ity [facility] venlafaxine XR 37.5 mg 24 hr capsule 2022-0 -14 00:00: 00 Yes TAKE 1 CAPSULE BY MOUTH EVERY MORNING WITH VENLAFAXIN E ER 150MG [facility] ity [facility] venlafaxine XR 37.5 mg 24 hr capsule 2022-0 -14 00:00: 00 Yes TAKE 1 CAPSULE BY MOUTH EVERY MORNING WITH VENLAFAXIN E ER 150MG [facility] ity [facility] venlafaxine XR 37.5 mg 24 hr capsule 2022-0 14 00:00: 00 Yes TAKE 1 CAPSULE BY MOUTH EVERY MORNING WITH VENLAFAXIN E ER 150MG [facility] ity [facility] venlafaxine XR 37.5 mg 24 hr capsule 2022-0 14 00:00: 00 Yes TAKE 1 CAPSULE BY MOUTH EVERY MORNING WITH VENLAFAXIN E ER 150MG [facility] it[facility] venlafaxine XR 37.5 mg 24 hr capsule 2022-0 -14 00:00: 00 Yes TAKE 1 CAPSULE BY MOUTH EVERY MORNING WITH VENLAFAXIN E ER 150MG [facility] ity [facility] venlafaxine XR 37.5 mg 24 hr capsule 2022-0 -14 00:00: 00 Yes TAKE 1 CAPSULE BY MOUTH EVERY MORNING WITH VENLAFAXIN E ER 150MG [facility] venlafaxine XR 37.5 mg 24 hr capsule 2022-0 -14 00:00: 00 Yes TAKE 1 CAPSULE BY MOUTH EVERY MORNING WITH VENLAFAXIN E ER 150MG [facility] ity [facility] venlafaxine XR 37.5 mg 24 hr capsule 2022-0 -14 00:00: 00 Yes TAKE 1 CAPSULE BY MOUTH EVERY MORNING WITH VENLAFAXIN E ER 150MG [facility] ity [facility] venlafaxine XR 37.5 mg 24 hr capsule 0 1-14 00:00: 00 Yes TAKE 1 CAPSULE BY MOUTH EVERY MORNING WITH VENLAFAXIN E ER 150MG [facility] venlafaxine XR 37.5 mg 24 hr capsule 0 14 00:00: 00 Yes TAKE 1 CAPSULE BY MOUTH EVERY MORNING WITH VENLAFAXIN E ER 150MG [facility] venlafaxine XR 37.5 mg 24 hr capsule 0 14 00:00: 00 Yes TAKE 1 CAPSULE BY MOUTH EVERY MORNING WITH VENLAFAXIN E ER 150MG [facility] venlafaxine XR 37.5 mg 24 hr capsule 0 14 00:00: 00 Yes TAKE 1 CAPSULE BY MOUTH EVERY MORNING WITH VENLAFAXIN E ER 150MG [facility] venlafaxine XR 37.5 mg 24 hr capsule 0 08-16 00:00: 00 Yes TAKE 1 CAPSULE BY MOUTH EVERY MORNING WITH VENLAFAXIN E ER 150MG [facility] venlafaxine XR 37.5 mg 24 hr capsule 0 14 00:00: 00 Yes TAKE 1 CAPSULE BY MOUTH EVERY MORNING WITH VENLAFAXIN E ER 150MG [facility] venlafaxine XR 37.5 mg 24 hr capsule 0 14 00:00: 00 Yes TAKE 1 CAPSULE BY MOUTH EVERY MORNING WITH VENLAFAXIN E ER 150MG [facility] venlafaxine XR 37.5 mg 24 hr capsule 0 14 00:00: 00 Yes TAKE 1 CAPSULE BY MOUTH EVERY MORNING WITH VENLAFAXIN E ER 150MG [facility] venlafaxine XR 37.5 mg 24 hr capsule 2022-0 14 00:00: 00 Yes TAKE 1 CAPSULE BY MOUTH EVERY MORNING WITH VENLAFAXIN E ER 150MG [facility] venlafaxine XR 37.5 mg 24 hr capsule 0 14 00:00: 00 Yes TAKE 1 CAPSULE BY MOUTH EVERY MORNING WITH VENLAFAXIN E ER 150MG [facility] venlafaxine XR 37.5 mg 24 hr capsule 2022-0 14 00:00: 00 Yes TAKE 1 CAPSULE BY MOUTH EVERY MORNING WITH VENLAFAXIN E ER 150MG [facility] venlafaxine XR 37.5 mg 24 hr capsule 2022-0 -14 00:00: 00 Yes TAKE 1 CAPSULE BY MOUTH EVERY MORNING WITH VENLAFAXIN E ER 150MG [facility] ity [facility] venlafaxine XR 37.5 mg 24 hr capsule 2022-0 -14 00:00: 00 Yes TAKE 1 CAPSULE BY MOUTH EVERY MORNING WITH VENLAFAXIN E ER 150MG [facility] ity [facility] venlafaxine XR 37.5 mg 24 hr capsule 2022-0 -14 00:00: 00 Yes TAKE 1 CAPSULE BY MOUTH EVERY MORNING WITH VENLAFAXIN E ER 150MG [facility] ity [facility] venlafaxine XR 37.5 mg 24 hr capsule 2022-0 -14 00:00: 00 Yes TAKE 1 CAPSULE BY MOUTH EVERY MORNING WITH VENLAFAXIN E ER 150MG [facility]5 [facility] hr [facility] 2022-0 14 00:00: 00 Yes TAKE 1 CAPSULE BY MOUTH EVERY MORNING WITH VENLAFAXIN E ER 150MG [facility] 37.5 mg 24 hr capsule 2022-0 14 00:00: 00 Yes TAKE 1 CAPSULE BY MOUTH EVERY MORNING WITH VENLAFAXIN E ER 150MG [facility] 37.5 mg 24 hr capsule 2022-0 14 00:00: 00 Yes TAKE 1 CAPSULE BY MOUTH EVERY MORNING WITH VENLAFAXIN E ER 150MG [facility] it[facility] venlafaxine XR 37.5 mg 24 hr capsule 2022-0 -14 00:00: 00 Yes TAKE 1 CAPSULE BY MOUTH EVERY MORNING WITH VENLAFAXIN E ER 150MG [facility] ity [facility] venlafaxine XR 37.5 mg 24 hr capsule 2022-0 -14 00:00: 00 Yes TAKE 1 CAPSULE BY MOUTH EVERY MORNING WITH VENLAFAXIN E ER 150MG [facility] ity [facility] venlafaxine XR 37.5 mg 24 hr capsule 2022-0 -14 00:00: 00 Yes TAKE 1 CAPSULE BY MOUTH EVERY MORNING WITH VENLAFAXIN E ER 150MG [facility] ity [facility] venlafaxine XR 37.5 mg 24 hr capsule 2022-0 -14 00:00: 00 Yes TAKE 1 CAPSULE BY MOUTH EVERY MORNING WITH VENLAFAXIN E ER 150MG [facility] venlafaxine XR 37.5 mg 24 hr capsule 2022-0 -14 00:00: 00 Yes TAKE 1 CAPSULE BY MOUTH EVERY MORNING WITH VENLAFAXIN E ER 150MG [facility] venlafaxine XR 37.5 mg 24 hr capsule 2022-0 -14 00:00: 00 Yes TAKE 1 CAPSULE BY MOUTH EVERY MORNING WITH VENLAFAXIN E ER 150MG [facility] venlafaxine XR 37.5 mg 24 hr capsule 2022-0 -14 00:00: 00 Yes TAKE 1 CAPSULE BY MOUTH EVERY MORNING WITH VENLAFAXIN E ER 150MG [facility] venlafaxine XR 37.5 mg 24 hr capsule 2022-0 -14 00:00: 00 Yes TAKE 1 CAPSULE BY MOUTH EVERY MORNING WITH VENLAFAXIN E ER 150MG [facility] ity [facility] venlafaxine XR 37.5 mg 24 hr capsule 2022-0 -14 00:00: 00 Yes TAKE 1 CAPSULE BY MOUTH EVERY MORNING WITH VENLAFAXIN E ER 150MG [facility] venlafaxine XR 37.5 mg 24 hr capsule 2022-0 -14 00:00: 00 Yes TAKE 1 CAPSULE BY MOUTH EVERY MORNING WITH VENLAFAXIN E ER 150MG [facility] venlafaxine XR 37.5 mg 24 hr capsule 2022-0 14 00:00: 00 Yes TAKE 1 CAPSULE BY MOUTH EVERY MORNING WITH VENLAFAXIN E ER 150MG [facility] venlafaxine XR 37.5 mg 24 hr capsule 2022-0 -14 00:00: 00 Yes TAKE 1 CAPSULE BY MOUTH EVERY MORNING WITH VENLAFAXIN E ER 150MG [facility] venlafaxine XR 37.5 mg 24 hr capsule 2022-0 -14 00:00: 00 Yes TAKE 1 CAPSULE BY MOUTH EVERY MORNING WITH VENLAFAXIN E ER 150MG [facility] venlafaxine XR 37.5 mg 24 hr capsule 2022-0 -14 00:00: 00 Yes TAKE 1 CAPSULE BY MOUTH EVERY MORNING WITH VENLAFAXIN E ER 150MG [facility] venlafaxine XR 37.5 mg 24 hr capsule 2022-0 -14 00:00: 00 Yes TAKE 1 CAPSULE BY MOUTH EVERY MORNING WITH VENLAFAXIN E ER 150MG [facility] venlafaxine XR 37.5 mg 24 hr capsule 2022-0 -14 00:00: 00 Yes TAKE 1 CAPSULE BY MOUTH EVERY MORNING WITH VENLAFAXIN E ER 150MG [facility] venlafaxine XR 37.5 mg 24 hr capsule 2022-0 -14 00:00: 00 Yes TAKE 1 CAPSULE BY MOUTH EVERY MORNING WITH VENLAFAXIN E ER 150MG [facility] ity [facility] venlafaxine XR 37.5 mg 24 hr capsule 2022-0 -14 00:00: 00 Yes TAKE 1 CAPSULE BY MOUTH EVERY MORNING WITH VENLAFAXIN E ER 150MG [facility] ity [facility] venlafaxine XR 37.5 mg 24 hr capsule 2022-0 -14 00:00: 00 Yes TAKE 1 CAPSULE BY MOUTH EVERY MORNING WITH VENLAFAXIN E ER 150MG [facility] ity [facility] venlafaxine XR 37.5 mg 24 hr capsule 2022-0 -14 00:00: 00 Yes TAKE 1 CAPSULE BY MOUTH EVERY MORNING WITH VENLAFAXIN E ER 150MG [facility] ity [facility] venlafaxine XR 37.5 mg 24 hr capsule 2022-0 -14 00:00: 00 Yes TAKE 1 CAPSULE BY MOUTH EVERY MORNING WITH VENLAFAXIN E ER 150MG [facility] [facility] venlafaxine XR 37.5 mg 24 hr capsule 2022-0 -14 00:00: 00 Yes TAKE 1 CAPSULE BY MOUTH EVERY MORNING WITH VENLAFAXIN E ER 150MG [facility] venlafaxine XR 37.5 mg 24 hr capsule 2022-0 -14 00:00: 00 Yes TAKE 1 CAPSULE BY MOUTH EVERY MORNING WITH VENLAFAXIN E ER 150MG [facility]y [facility] venlafaxine XR 37.5 mg 24 hr capsule 2022-0 -14 00:00: 00 Yes TAKE 1 CAPSULE BY MOUTH EVERY MORNING WITH VENLAFAXIN E ER 150MG [facility] ity [facility] venlafaxine XR 37.5 mg 24 hr capsule 2022-0 14 00:00: 00 Yes TAKE 1 CAPSULE BY MOUTH EVERY MORNING WITH VENLAFAXIN E ER 150MG [facility] venlafaxine XR 37.5 mg 24 hr capsule 2022-0 14 00:00: 00 Yes TAKE 1 CAPSULE BY MOUTH EVERY MORNING WITH VENLAFAXIN E ER 150MG [facility] venlafaxine XR 37.5 mg 24 hr capsule 2022-0 14 00:00: 00 Yes TAKE 1 CAPSULE BY MOUTH EVERY MORNING WITH VENLAFAXIN E ER 150MG [facility] venlafaxine XR 37.5 mg 24 hr capsule 2022-0 14 00:00: 00 Yes TAKE 1 CAPSULE BY MOUTH EVERY MORNING WITH VENLAFAXIN E ER 150MG [facility] venlafaxine XR 37.5 mg 24 hr capsule 2022-0 14 00:00: 00 Yes TAKE 1 CAPSULE BY MOUTH EVERY MORNING WITH VENLAFAXIN E ER 150MG [facility] venlafaxine XR 37.5 mg 24 hr capsule 2022-0 14 00:00: 00 Yes TAKE 1 CAPSULE BY MOUTH EVERY MORNING WITH VENLAFAXIN E ER 150MG [facility] venlafaxine XR 37.5 mg 24 hr capsule 0 14 00:00: 00 Yes TAKE 1 CAPSULE BY MOUTH EVERY MORNING WITH VENLAFAXIN E ER 150MG [facility] venlafaxine XR 37.5 mg 24 hr capsule 2022-0 14 00:00: 00 Yes TAKE 1 CAPSULE BY MOUTH EVERY MORNING WITH VENLAFAXIN E ER 150MG [facility] venlafaxine XR 37.5 mg 24 hr capsule 2022-0 14 00:00: 00 Yes TAKE 1 CAPSULE BY MOUTH EVERY MORNING WITH VENLAFAXIN E ER 150MG [facility] venlafaxine XR 37.5 mg 24 hr capsule 2022-0 14 00:00: 00 Yes TAKE 1 CAPSULE BY MOUTH EVERY MORNING WITH VENLAFAXIN E ER 150MG [facility] venlafaxine XR 37.5 mg 24 hr capsule 2022-0 1-14 00:00: 00 Yes TAKE 1 CAPSULE BY MOUTH EVERY MORNING WITH VENLAFAXIN E ER 150MG [facility] venlafaxine XR 37.5 mg 24 hr capsule 2022-0 -14 00:00: 00 Yes TAKE 1 CAPSULE BY MOUTH EVERY MORNING WITH VENLAFAXIN E ER 150MG [facility] venlafaxine XR 37.5 mg 24 hr capsule 2022-0 14 00:00: 00 Yes TAKE 1 CAPSULE BY MOUTH EVERY MORNING WITH VENLAFAXIN E ER 150MG [facility] venlafaxine XR 37.5 mg 24 hr capsule 2022-0 14 00:00: 00 Yes TAKE 1 CAPSULE BY MOUTH EVERY MORNING WITH VENLAFAXIN E ER 150MG [facility] venlafaxine XR 37.5 mg 24 hr capsule 2022-0 14 00:00: 00 Yes TAKE 1 CAPSULE BY MOUTH EVERY MORNING WITH VENLAFAXIN E ER 150MG [facility] venlafaxine XR 37.5 mg 24 hr capsule 2022-0 14 00:00: 00 Yes TAKE 1 CAPSULE BY MOUTH EVERY MORNING WITH VENLAFAXIN E ER 150MG [facility] venlafaxine XR 37.5 mg 24 hr capsule 2022-0 14 00:00: 00 Yes TAKE 1 CAPSULE BY MOUTH EVERY MORNING WITH VENLAFAXIN E ER 150MG [facility] venlafaxine XR 37.5 mg 24 hr capsule 2022-0 14 00:00: 00 Yes TAKE 1 CAPSULE BY MOUTH EVERY MORNING WITH VENLAFAXIN E ER 150MG [facility] venlafaxine XR 37.5 mg 24 hr capsule 2022-0 -14 00:00: 00 Yes TAKE 1 CAPSULE BY MOUTH EVERY MORNING WITH VENLAFAXIN E ER 150MG [facility] venlafaxine XR 37.5 mg 24 hr capsule 2022-0 14 00:00: 00 Yes TAKE 1 CAPSULE BY MOUTH EVERY MORNING WITH VENLAFAXIN E ER 150MG [facility] venlafaxine XR 37.5 mg 24 hr capsule 2022-0 -14 00:00: 00 Yes TAKE 1 CAPSULE BY MOUTH EVERY MORNING WITH VENLAFAXIN E ER 150MG [facility] it[facility] venlafaxine XR 37.5 mg 24 hr capsule 2022-0 -14 00:00: 00 Yes TAKE 1 CAPSULE BY MOUTH EVERY MORNING WITH VENLAFAXIN E ER 150MG [facility] venlafaxine XR 37.5 mg 24 hr capsule 2022-0 -14 00:00: 00 Yes TAKE 1 CAPSULE BY MOUTH EVERY MORNING WITH VENLAFAXIN E ER 150MG [facility] venlafaxine XR 37.5 mg 24 hr capsule 0 -14 00:00: 00 Yes TAKE 1 CAPSULE BY MOUTH EVERY MORNING WITH VENLAFAXIN E ER 150MG [facility] venlafaxine XR 37.5 mg 24 hr capsule 0 14 00:00: 00 Yes TAKE 1 CAPSULE BY MOUTH EVERY MORNING WITH VENLAFAXIN E ER 150[facility]5 [facility] 24 hr capsule 2022-0 -14 00:00: 00 Yes TAKE 1 CAPSULE BY MOUTH EVERY MORNING WITH VENLAFAXIN E ER 150MG [facility] it[facility] venlafaxine XR 37.5 mg 24 hr capsule 0 -14 00:00: 00 Yes TAKE 1 CAPSULE BY MOUTH EVERY MORNING WITH VENLAFAXIN E ER 150MG [facility] it[facility] venlafaxine XR 37.5 mg 24 hr capsule 0 14 00:00: 00 Yes TAKE 1 CAPSULE BY MOUTH EVERY MORNING WITH VENLAFAXIN E ER 150MG [facility] venlafaxine XR 37.5 mg 24 hr capsule 2022-0 -14 00:00: 00 Yes TAKE 1 CAPSULE BY MOUTH EVERY MORNING WITH VENLAFAXIN E ER 150MG [facility] venlafaxine XR 37.5 mg 24 hr capsule 2022-0 -14 00:00: 00 Yes TAKE 1 CAPSULE BY MOUTH EVERY MORNING WITH VENLAFAXIN E ER 150MG [facility] venlafaxine XR 37.5 mg 24 hr capsule 2022-0 -14 00:00: 00 Yes TAKE 1 CAPSULE BY MOUTH EVERY MORNING WITH VENLAFAXIN E ER 150MG [facility] venlafaxine XR 37.5 mg 24 hr capsule 2022-0 -14 00:00: 00 Yes TAKE 1 CAPSULE BY MOUTH EVERY MORNING WITH VENLAFAXIN E ER 150MG [facility] venlafaxine XR 37.5 mg 24 hr capsule 2022-0 -14 00:00: 00 Yes TAKE 1 CAPSULE BY MOUTH EVERY MORNING WITH VENLAFAXIN E ER 150MG [facility] venlafaxine XR 37.5 mg 24 hr capsule 2022-0 -14 00:00: 00 Yes TAKE 1 CAPSULE BY MOUTH EVERY MORNING WITH VENLAFAXIN E ER 150MG [facility] venlafaxine XR 37.5 mg 24 hr capsule 2022-0 -14 00:00: 00 Yes TAKE 1 CAPSULE BY MOUTH EVERY MORNING WITH VENLAFAXIN E ER 150MG [facility] ity [facility] venlafaxine XR 37.5 mg 24 hr capsule 2022-0 14 00:00: 00 Yes TAKE 1 CAPSULE BY MOUTH EVERY MORNING WITH VENLAFAXIN E ER 150MG [facility]5 [facility] 24 hr capsule 0 14 00:00: 00 Yes TAKE 1 CAPSULE BY MOUTH EVERY MORNING WITH VENLAFAXIN E ER 150MG [facility] it[facility] acetic acid 0.25 % irrigation solution 0 - 00:00: 00 Yes USE DIRECTED FOR WOUND CARE DAILY [facility] acetic acid 0.25 % irrigation solution 0 - 00:00: 00 Yes USE DIRECTED FOR WOUND CARE DAILY [facility] acetic acid 0.25 % irrigation solution 0 - 00:00: 00 Yes USE DIRECTED FOR WOUND CARE DAILY [facility] acetic acid 0.25 % irrigation solution 2022-0 - 00:00: 00 Yes USE DIRECTED FOR WOUND CARE DAILY [facility] acetic acid 0.25 % irrigation solution 0 - 00:00: 00 Yes USE DIRECTED FOR WOUND CARE DAILY [facility] acetic acid 0.25 % irrigation solution 0 - 00:00: 00 Yes USE DIRECTED FOR WOUND CARE DAILY [facility] acetic acid 0.25 % irrigation solution 2022-0 08-12 00:00: 00 Yes USE DIRECTED FOR WOUND CARE DAILY [facility] acetic acid 0.25 % irrigation solution 3-0 - 00:00: 00 Yes USE DIRECTED FOR WOUND CARE DAILY [facility] acetic acid 0.25 % irrigation solution 3-0 08-12 00:00: 00 Yes USE DIRECTED FOR WOUND CARE DAILY [facility] acetic acid 0.25 % irrigation solution 3-0 08-12 00:00: 00 Yes USE DIRECTED FOR WOUND CARE DAILY [facility] acetic acid 0.25 % irrigation solution 3-0 08-12 00:00: 00 Yes USE DIRECTED FOR WOUND CARE DAILY [facility] acetic acid 0.25 % irrigation solution 2022-0 08-12 00:00: 00 Yes USE DIRECTED FOR WOUND CARE DAILY [facility] acetic acid 0.25 % irrigation solution 2022-0 08-12 00:00: 00 Yes USE DIRECTED FOR WOUND CARE DAILY [facility] acetic acid 0.25 % irrigation solution 2022-0 08-12 00:00: 00 Yes USE DIRECTED FOR WOUND CARE DAILY [facility] acetic acid 0.25 % irrigation solution 2022-0 08-12 00:00: 00 Yes USE DIRECTED FOR WOUND CARE DAILY [facility] acetic acid 0.25 % irrigation solution 2022-0 08-12 00:00: 00 Yes USE DIRECTED FOR WOUND CARE DAILY [facility] acetic acid 0.25 % irrigation solution 2022-0 08-12 00:00: 00 Yes USE DIRECTED FOR WOUND CARE DAILY [facility] acetic acid 0.25 % irrigation solution 3-0 08-12 00:00: 00 Yes USE DIRECTED FOR WOUND CARE DAILY [facility] acetic acid 0.25 % irrigation solution 2022-0 - 00:00: 00 Yes USE DIRECTED FOR WOUND CARE DAILY [facility] acetic acid 0.25 % irrigation solution 3-0 - 00:00: 00 Yes USE DIRECTED FOR WOUND CARE DAILY [facility] acetic acid 0.25 % irrigation solution 3-0 - 00:00: 00 Yes USE DIRECTED FOR WOUND CARE DAILY [facility] acetic acid 0.25 % irrigation solution 3-0 08-12 00:00: 00 Yes USE DIRECTED FOR WOUND CARE DAILY [facility] acetic acid 0.25 % irrigation solution 3-0 08-12 00:00: 00 Yes USE DIRECTED FOR WOUND CARE DAILY [facility] acetic acid 0.25 % irrigation solution 3-0 08-12 00:00: 00 Yes USE DIRECTED FOR WOUND CARE DAILY [facility] acetic acid 0.25 % irrigation solution 3-0 08-12 00:00: 00 Yes USE DIRECTED FOR WOUND CARE DAILY [facility] acetic acid 0.25 % irrigation solution 3-0 08-12 00:00: 00 Yes USE DIRECTED FOR WOUND CARE DAILY [facility] acetic acid 0.25 % irrigation solution 3-0 08-12 00:00: 00 Yes USE DIRECTED FOR WOUND CARE DAILY [facility] acetic acid 0.25 % irrigation solution 3-0 08-12 00:00: 00 Yes USE DIRECTED FOR WOUND CARE DAILY [facility] acetic acid 0.25 % irrigation solution 3-0 08-12 00:00: 00 Yes USE DIRECTED FOR WOUND CARE DAILY [facility] acetic acid 0.25 % irrigation solution 2022-0 08-12 00:00: 00 Yes USE DIRECTED FOR WOUND CARE DAILY [facility] acetic acid 0.25 % irrigation solution 3-0 08-12 00:00: 00 Yes USE DIRECTED FOR WOUND CARE DAILY [facility] acetic acid 0.25 % irrigation solution 3-0 08-12 00:00: 00 Yes USE DIRECTED FOR WOUND CARE DAILY [facility] acetic acid 0.25 % irrigation solution 3-0 08-12 00:00: 00 Yes USE DIRECTED FOR WOUND CARE DAILY [facility] acetic acid 0.25 % irrigation solution 3-0 - 00:00: 00 Yes USE DIRECTED FOR WOUND CARE DAILY [facility] acetic acid 0.25 % irrigation solution 3-0 - 00:00: 00 Yes USE DIRECTED FOR WOUND CARE DAILY [facility] acetic acid 0.25 % irrigation solution 3-0 08-12 00:00: 00 Yes USE DIRECTED FOR WOUND CARE DAILY [facility] acetic acid 0.25 % irrigation solution 3-0 -10 00:00: 00 Yes USE DIRECTED FOR WOUND CARE DAILY [facility] acetic acid 0.25 % irrigation solution 3-0 - 00:00: 00 Yes USE DIRECTED FOR WOUND CARE DAILY [facility] acetic acid 0.25 % irrigation solution 3-0 - 00:00: 00 Yes USE DIRECTED FOR WOUND CARE DAILY [facility] acetic acid 0.25 % irrigation solution 3-0 08-12 00:00: 00 Yes USE DIRECTED FOR WOUND CARE DAILY [facility] acetic acid 0.25 % irrigation solution 2022-0 08-12 00:00: 00 Yes USE DIRECTED FOR WOUND CARE DAILY [facility] acetic acid 0.25 % irrigation solution 3-0 08-12 00:00: 00 Yes USE DIRECTED FOR WOUND CARE DAILY [facility] acetic acid 0.25 % irrigation solution 3-0 08-12 00:00: 00 Yes USE DIRECTED FOR WOUND CARE DAILY [facility] acetic acid 0.25 % irrigation solution 3-0 - 00:00: 00 Yes USE DIRECTED FOR WOUND CARE DAILY [facility] acetic acid 0.25 % irrigation solution 2022-0 08-12 00:00: 00 Yes USE DIRECTED FOR WOUND CARE DAILY [facility] acetic acid 0.25 % irrigation solution 3-0 - 00:00: 00 Yes USE DIRECTED FOR WOUND CARE DAILY [facility] acetic acid 0.25 % irrigation solution 3-0 -10 00:00: 00 Yes USE DIRECTED FOR WOUND CARE DAILY [facility] acetic acid 0.25 % irrigation solution 3-0 - 00:00: 00 Yes USE DIRECTED FOR WOUND CARE DAILY [facility] acetic acid 0.25 % irrigation solution 3-0 - 00:00: 00 Yes USE DIRECTED FOR WOUND CARE DAILY [facility] acetic acid 0.25 % irrigation solution 2022-0 08-12 00:00: 00 Yes USE DIRECTED FOR WOUND CARE DAILY [facility] acetic acid 0.25 % irrigation solution 3-0 - 00:00: 00 Yes USE DIRECTED FOR WOUND CARE DAILY [facility] acetic acid 0.25 % irrigation solution 3-0 08-12 00:00: 00 Yes USE DIRECTED FOR WOUND CARE DAILY [facility] acetic acid 0.25 % irrigation solution 3-0 - 00:00: 00 Yes USE DIRECTED FOR WOUND CARE DAILY [facility] acetic acid 0.25 % irrigation solution 3-0 - 00:00: 00 Yes USE DIRECTED FOR WOUND CARE DAILY [facility] acetic acid 0.25 % irrigation solution 3-0 08-12 00:00: 00 Yes USE DIRECTED FOR WOUND CARE DAILY [facility] acetic acid 0.25 % irrigation solution 3-0 - 00:00: 00 Yes USE DIRECTED FOR WOUND CARE DAILY [facility] acetic acid 0.25 % irrigation solution 3-0 08-12 00:00: 00 Yes USE DIRECTED FOR WOUND CARE DAILY [facility] acetic acid 0.25 % irrigation solution 3-0 - 00:00: 00 Yes USE DIRECTED FOR WOUND CARE DAILY [facility] acetic acid 0.25 % irrigation solution 3-0 - 00:00: 00 Yes USE DIRECTED FOR WOUND CARE DAILY [facility] acetic acid 0.25 % irrigation solution 2022-0 - 00:00: 00 Yes USE DIRECTED FOR WOUND CARE DAILY [facility] acetic acid 0.25 % irrigation solution 3-0 - 00:00: 00 Yes USE DIRECTED FOR WOUND CARE DAILY [facility] acetic acid 0.25 % irrigation solution 2022-0 -10 00:00: 00 Yes USE DIRECTED FOR WOUND CARE DAILY [facility] acetic acid 0.25 % irrigation solution 3-0 - 00:00: 00 Yes USE DIRECTED FOR WOUND CARE DAILY [facility] acetic acid 0.25 % irrigation solution 3-0 - 00:00: 00 Yes USE DIRECTED FOR WOUND CARE DAILY [facility] acetic acid 0.25 % irrigation solution 3-0 - 00:00: 00 Yes USE DIRECTED FOR WOUND CARE DAILY [facility] acetic acid 0.25 % irrigation solution 2022-0 08-12 00:00: 00 Yes USE DIRECTED FOR WOUND CARE DAILY [facility] acetic acid 0.25 % irrigation solution 3-0 - 00:00: 00 Yes USE DIRECTED FOR WOUND CARE DAILY [facility] acetic acid 0.25 % irrigation solution 3-0 08-12 00:00: 00 Yes USE DIRECTED FOR WOUND CARE DAILY [facility] acetic acid 0.25 % irrigation solution 2022-0 08-12 00:00: 00 Yes USE DIRECTED FOR WOUND CARE DAILY [facility] acetic acid 0.25 % irrigation solution 2022-0 08-12 00:00: 00 Yes USE DIRECTED FOR WOUND CARE DAILY [facility] acetic acid 0.25 % irrigation solution 2022-0 08-12 00:00: 00 Yes USE DIRECTED FOR WOUND CARE DAILY [facility] acetic acid 0.25 % irrigation solution 3-0 08-12 00:00: 00 Yes USE DIRECTED FOR WOUND CARE DAILY [facility] acetic acid 0.25 % irrigation solution 2022-0 08-12 00:00: 00 Yes USE DIRECTED FOR WOUND CARE DAILY [facility] acetic acid 0.25 % irrigation solution 2022-0 08-12 00:00: 00 Yes USE DIRECTED FOR WOUND CARE DAILY [facility] acetic acid 0.25 % irrigation solution 3-0 08-12 00:00: 00 Yes USE DIRECTED FOR WOUND CARE DAILY [facility] acetic acid 0.25 % irrigation solution 3-0 - 00:00: 00 Yes USE DIRECTED FOR WOUND CARE DAILY [facility] acetic acid 0.25 % irrigation solution 3-0 - 00:00: 00 Yes USE DIRECTED FOR WOUND CARE DAILY [facility] acetic acid 0.25 % irrigation solution 3-0 - 00:00: 00 Yes USE DIRECTED FOR WOUND CARE DAILY [facility] acetic acid 0.25 % irrigation solution 3-0 08-12 00:00: 00 Yes USE DIRECTED FOR WOUND CARE DAILY [facility] acetic acid 0.25 % irrigation solution 3-0 - 00:00: 00 Yes USE DIRECTED FOR WOUND CARE DAILY [facility] acetic acid 0.25 % irrigation solution 2022-0 08-12 00:00: 00 Yes USE DIRECTED FOR WOUND CARE DAILY [facility] acetic acid 0.25 % irrigation solution 3-0 - 00:00: 00 Yes USE DIRECTED FOR WOUND CARE DAILY [facility] acetic acid 0.25 % irrigation solution 3-0 08-12 00:00: 00 Yes USE DIRECTED FOR WOUND CARE DAILY [facility] acetic acid 0.25 % irrigation solution 3-0 08-12 00:00: 00 Yes USE DIRECTED FOR WOUND CARE DAILY [facility] acetic acid 0.25 % irrigation solution 2022-0 08-12 00:00: 00 Yes USE DIRECTED FOR WOUND CARE DAILY [facility] acetic acid 0.25 % irrigation solution 3-0 08-12 00:00: 00 Yes USE DIRECTED FOR WOUND CARE DAILY [facility] acetic acid 0.25 % irrigation solution 2022-0 08-12 00:00: 00 Yes USE DIRECTED FOR WOUND CARE DAILY [facility] acetic acid 0.25 % irrigation solution 2022-0 08-12 00:00: 00 Yes USE DIRECTED FOR WOUND CARE DAILY [facility] acetic acid 0.25 % irrigation solution 2022-0 - 00:00: 00 Yes USE DIRECTED FOR WOUND CARE DAILY [facility] acetic acid 0.25 % irrigation solution 3-0 - 00:00: 00 Yes USE DIRECTED FOR WOUND CARE DAILY [facility] acetic acid 0.25 % irrigation solution 3-0 - 00:00: 00 Yes USE DIRECTED FOR WOUND CARE DAILY [facility] acetic acid 0.25 % irrigation solution 3-0 - 00:00: 00 Yes USE DIRECTED FOR WOUND CARE DAILY [facility] acetic acid 0.25 % irrigation solution 3-0 - 00:00: 00 Yes USE DIRECTED FOR WOUND CARE DAILY [facility] acetic acid 0.25 % irrigation solution 3-0 - 00:00: 00 Yes USE DIRECTED FOR WOUND CARE DAILY [facility] acetic acid 0.25 % irrigation solution 3-0 - 00:00: 00 Yes USE DIRECTED FOR WOUND CARE DAILY [facility] acetic acid 0.25 % irrigation solution 3-0 - 00:00: 00 Yes USE DIRECTED FOR WOUND CARE DAILY [facility] acetic acid 0.25 % irrigation solution 3-0 - 00:00: 00 Yes USE DIRECTED FOR WOUND CARE DAILY [facility] acetic acid 0.25 % irrigation solution 3-0 - 00:00: 00 Yes USE DIRECTED FOR WOUND CARE DAILY [facility] acetic acid 0.25 % irrigation solution 3-0 - 00:00: 00 Yes USE DIRECTED FOR WOUND CARE DAILY [facility] acetic acid 0.25 % irrigation solution 3-0 08-12 00:00: 00 Yes USE DIRECTED FOR WOUND CARE DAILY [facility] acetic acid 0.25 % irrigation solution 3-0 - 00:00: 00 Yes USE DIRECTED FOR WOUND CARE DAILY [facility] acetic acid 0.25 % irrigation solution 3-0 08-12 00:00: 00 Yes USE DIRECTED FOR WOUND CARE DAILY [facility] acetic acid 0.25 % irrigation solution 3-0 - 00:00: 00 Yes USE DIRECTED FOR WOUND CARE DAILY [facility] acetic acid 0.25 % irrigation solution 3-0 - 00:00: 00 Yes USE DIRECTED FOR WOUND CARE DAILY [facility] acetic acid 0.25 % irrigation solution 3-0 - 00:00: 00 Yes USE DIRECTED FOR WOUND CARE DAILY [facility] acetic acid 0.25 % irrigation solution 3-0 - 00:00: 00 Yes USE DIRECTED FOR WOUND CARE DAILY [facility] acetic acid 0.25 % irrigation solution 3-0 08-12 00:00: 00 Yes USE DIRECTED FOR WOUND CARE DAILY [facility] acetic acid 0.25 % irrigation solution 3-0 - 00:00: 00 Yes USE DIRECTED FOR WOUND CARE DAILY [facility] acetic acid 0.25 % irrigation solution 3-0 08-12 00:00: 00 Yes USE DIRECTED FOR WOUND CARE DAILY [facility] acetic acid 0.25 % irrigation solution 3-0 08-12 00:00: 00 Yes USE DIRECTED FOR WOUND CARE DAILY [facility] acetic acid 0.25 % irrigation solution 3-0 08-12 00:00: 00 Yes USE DIRECTED FOR WOUND CARE DAILY [facility] acetic acid 0.25 % irrigation solution 2022-0 08-12 00:00: 00 Yes USE DIRECTED FOR WOUND CARE DAILY [facility] acetic acid 0.25 % irrigation solution 2022-0 08-12 00:00: 00 Yes USE DIRECTED FOR WOUND CARE DAILY [facility] acetic acid 0.25 % irrigation solution 2022-0 08-12 00:00: 00 Yes USE DIRECTED FOR WOUND CARE DAILY [facility] acetic acid 0.25 % irrigation solution 2022-0 08-12 00:00: 00 Yes USE DIRECTED FOR WOUND CARE DAILY [facility] acetic acid 0.25 % irrigation solution 2022-0 08-12 00:00: 00 Yes USE DIRECTED FOR WOUND CARE DAILY [facility] acetic acid 0.25 % irrigation solution 2022-0 08-12 00:00: 00 Yes USE DIRECTED FOR WOUND CARE DAILY [facility] acetic acid 0.25 % irrigation solution 3-0 08-12 00:00: 00 Yes USE DIRECTED FOR WOUND CARE DAILY [facility] acetic acid 0.25 % irrigation solution 2022-0 - 00:00: 00 Yes USE DIRECTED FOR WOUND CARE DAILY [facility] acetic acid 0.25 % irrigation solution 3-0 - 00:00: 00 Yes USE DIRECTED FOR WOUND CARE DAILY [facility] acetic acid 0.25 % irrigation solution 3-0 - 00:00: 00 Yes USE DIRECTED FOR WOUND CARE DAILY [facility] acetic acid 0.25 % irrigation solution 3-0 08-12 00:00: 00 Yes USE DIRECTED FOR WOUND CARE DAILY [facility] acetic acid 0.25 % irrigation solution 3-0 08-12 00:00: 00 Yes USE DIRECTED FOR WOUND CARE DAILY [facility] acetic acid 0.25 % irrigation solution 3-0 08-12 00:00: 00 Yes USE DIRECTED FOR WOUND CARE DAILY [facility] acetic acid 0.25 % irrigation solution 3-0 08-12 00:00: 00 Yes USE DIRECTED FOR WOUND CARE DAILY [facility] acetic acid 0.25 % irrigation solution 3-0 08-12 00:00: 00 Yes USE DIRECTED FOR WOUND CARE DAILY [facility] acetic acid 0.25 % irrigation solution 3-0 08-12 00:00: 00 Yes USE DIRECTED FOR WOUND CARE DAILY [facility] acetic acid 0.25 % irrigation solution 3-0 08-12 00:00: 00 Yes USE DIRECTED FOR WOUND CARE DAILY [facility] acetic acid 0.25 % irrigation solution 3-0 08-12 00:00: 00 Yes USE DIRECTED FOR WOUND CARE DAILY [facility] acetic acid 0.25 % irrigation solution 2022-0 08-12 00:00: 00 Yes USE DIRECTED FOR WOUND CARE DAILY [facility] acetic acid 0.25 % irrigation solution 3-0 08-12 00:00: 00 Yes USE DIRECTED FOR WOUND CARE DAILY [facility] acetic acid 0.25 % irrigation solution 3-0 08-12 00:00: 00 Yes USE DIRECTED FOR WOUND CARE DAILY [facility] acetic acid 0.25 % irrigation solution 3-0 08-12 00:00: 00 Yes USE DIRECTED FOR WOUND CARE DAILY [facility] acetic acid 0.25 % irrigation solution 3-0 - 00:00: 00 Yes USE DIRECTED FOR WOUND CARE DAILY [facility] acetic acid 0.25 % irrigation solution 3-0 - 00:00: 00 Yes USE DIRECTED FOR WOUND CARE DAILY [facility] acetic acid 0.25 % irrigation solution 3-0 08-12 00:00: 00 Yes USE DIRECTED FOR WOUND CARE DAILY [facility] acetic acid 0.25 % irrigation solution 3-0 -10 00:00: 00 Yes USE DIRECTED FOR WOUND CARE DAILY [facility] acetic acid 0.25 % irrigation solution 3-0 - 00:00: 00 Yes USE DIRECTED FOR WOUND CARE DAILY [facility] acetic acid 0.25 % irrigation solution 3-0 - 00:00: 00 Yes USE DIRECTED FOR WOUND CARE DAILY [facility] acetic acid 0.25 % irrigation solution 3-0 08-12 00:00: 00 Yes USE DIRECTED FOR WOUND CARE DAILY [facility] acetic acid 0.25 % irrigation solution 2022-0 08-12 00:00: 00 Yes USE DIRECTED FOR WOUND CARE DAILY [facility] acetic acid 0.25 % irrigation solution 3-0 08-12 00:00: 00 Yes USE DIRECTED FOR WOUND CARE DAILY [facility] acetic acid 0.25 % irrigation solution 3-0 08-12 00:00: 00 Yes USE DIRECTED FOR WOUND CARE DAILY [facility] acetic acid 0.25 % irrigation solution 3-0 - 00:00: 00 Yes USE DIRECTED FOR WOUND CARE DAILY [facility] acetic acid 0.25 % irrigation solution 2022-0 08-12 00:00: 00 Yes USE DIRECTED FOR WOUND CARE DAILY [facility] acetic acid 0.25 % irrigation solution 3-0 - 00:00: 00 Yes USE DIRECTED FOR WOUND CARE DAILY [facility] acetic acid 0.25 % irrigation solution 3-0 -10 00:00: 00 Yes USE DIRECTED FOR WOUND CARE DAILY [facility] acetic acid 0.25 % irrigation solution 3-0 - 00:00: 00 Yes USE DIRECTED FOR WOUND CARE DAILY [facility] acetic acid 0.25 % irrigation solution 3-0 - 00:00: 00 Yes USE DIRECTED FOR WOUND CARE DAILY [facility] acetic acid 0.25 % irrigation solution 3-0 -10 00:00: 00 Yes USE DIRECTED FOR WOUND CARE DAILY [facility] cefepime in iso-osm dextrose (CEFEPIME IN DEXTROSE,IS O-OSM) 2 gram/100 mL PgBk 2023-0 1-08 00:00: 00 Yes [facility] cefepime in iso-osm dextrose (CEFEPIME IN DEXTROSE,IS O-OSM) 2 gram/100 mL PgBk 2023-0 1- 00:00: 00 Yes [facility] cefepime in iso-osm dextrose (CEFEPIME IN DEXTROSE,IS O-OSM) 2 gram/100 mL PgBk 2023-0 1- 00:00: 00 Yes [facility] cefepime in iso-osm dextrose (CEFEPIME IN DEXTROSE,IS O-OSM) 2 gram/100 mL PgBk 2023-0 - 00:00: 00 Yes [facility] cefepime in iso-osm dextrose (CEFEPIME IN DEXTROSE,IS O-OSM) 2 gram/100 mL PgBk 2023-0 - 00:00: 00 Yes [facility] cefepime in iso-osm dextrose (CEFEPIME IN DEXTROSE,IS O-OSM) 2 gram/100 mL PgBk 2023-0 - 00:00: 00 Yes [facility] cefepime in iso-osm dextrose (CEFEPIME IN DEXTROSE,IS O-OSM) 2 gram/100 mL PgBk 2023-0 - 00:00: 00 Yes [facility] cefepime in iso-osm dextrose (CEFEPIME IN DEXTROSE,IS O-OSM) 2 gram/100 mL PgBk 2023-0 -08 00:00: 00 Yes [facility] cefepime in iso-osm dextrose (CEFEPIME IN DEXTROSE,IS O-OSM) 2 gram/100 mL PgBk 2023-0 -08 00:00: 00 Yes [facility] cefepime in iso-osm dextrose (CEFEPIME IN DEXTROSE,IS O-OSM) 2 gram/100 mL PgBk 2023-0 1-08 00:00: 00 Yes [facility] cefepime in iso-osm dextrose (CEFEPIME IN DEXTROSE,IS O-OSM) 2 gram/100 mL PgBk 2023-0 1-08 00:00: 00 Yes [facility] cefepime in iso-osm dextrose (CEFEPIME IN DEXTROSE,IS O-OSM) 2 gram/100 mL PgBk 2023-0 1-08 00:00: 00 Yes [facility] cefepime in iso-osm dextrose (CEFEPIME IN DEXTROSE,IS O-OSM) 2 gram/100 mL PgBk 2023-0 1-08 00:00: 00 Yes [facility] cefepime in iso-osm dextrose (CEFEPIME IN DEXTROSE,IS O-OSM) 2 gram/100 mL PgBk 2023-0 - 00:00: 00 Yes [facility] cefepime in iso-osm dextrose (CEFEPIME IN DEXTROSE,IS O-OSM) 2 gram/100 mL PgBk 2023-0 1- 00:00: 00 Yes [facility] cefepime in iso-osm dextrose (CEFEPIME IN DEXTROSE,IS O-OSM) 2 gram/100 mL PgBk 2023-0 - 00:00: 00 Yes [facility] cefepime in iso-osm dextrose (CEFEPIME IN DEXTROSE,IS O-OSM) 2 gram/100 mL PgBk 2023-0 -08 00:00: 00 Yes [facility] cefepime in iso-osm dextrose (CEFEPIME IN DEXTROSE,IS O-OSM) 2 gram/100 mL PgBk 2023-0 1-08 00:00: 00 Yes [facility] cefepime in iso-osm dextrose (CEFEPIME IN DEXTROSE,IS O-OSM) 2 gram/100 mL PgBk 2023-0 -08 00:00: 00 Yes [facility] cefepime in iso-osm dextrose (CEFEPIME IN DEXTROSE,IS O-OSM) 2 gram/100 mL PgBk 2023-0 -08 00:00: 00 Yes [facility] cefepime in iso-osm dextrose (CEFEPIME IN DEXTROSE,IS O-OSM) 2 gram/100 mL PgBk 2023-0 1-08 00:00: 00 Yes [facility] cefepime in iso-osm dextrose (CEFEPIME IN DEXTROSE,IS O-OSM) 2 gram/100 mL PgBk 2023-0 1-08 00:00: 00 Yes [facility] cefepime in iso-osm dextrose (CEFEPIME IN DEXTROSE,IS O-OSM) 2 gram/100 mL PgBk 2023-0 1-08 00:00: 00 Yes [facility] cefepime in iso-osm dextrose (CEFEPIME IN DEXTROSE,IS O-OSM) 2 gram/100 mL PgBk 2023-0 - 00:00: 00 Yes [facility] cefepime in iso-osm dextrose (CEFEPIME IN DEXTROSE,IS O-OSM) 2 gram/100 mL PgBk 2023-0 -08 00:00: 00 Yes [facility] cefepime in iso-osm dextrose (CEFEPIME IN DEXTROSE,IS O-OSM) 2 gram/100 mL PgBk 2023-0 - 00:00: 00 Yes [facility] cefepime in iso-osm dextrose (CEFEPIME IN DEXTROSE,IS O-OSM) 2 gram/100 mL PgBk 2023-0 - 00:00: 00 Yes [facility] cefepime in iso-osm dextrose (CEFEPIME IN DEXTROSE,IS O-OSM) 2 gram/100 mL PgBk 2023-0 - 00:00: 00 Yes [facility] cefepime in iso-osm dextrose (CEFEPIME IN DEXTROSE,IS O-OSM) 2 gram/100 mL PgBk 2023-0 - 00:00: 00 Yes [facility] cefepime in iso-osm dextrose (CEFEPIME IN DEXTROSE,IS O-OSM) 2 gram/100 mL PgBk 2023-0 -08 00:00: 00 Yes [facility] cefepime in iso-osm dextrose (CEFEPIME IN DEXTROSE,IS O-OSM) 2 gram/100 mL PgBk 2023-0 1- 00:00: 00 Yes [facility] cefepime in iso-osm dextrose (CEFEPIME IN DEXTROSE,IS O-OSM) 2 gram/100 mL PgBk 2023-0 1-08 00:00: 00 Yes [facility] cefepime in iso-osm dextrose (CEFEPIME IN DEXTROSE,IS O-OSM) 2 gram/100 mL PgBk 2023-0 - 00:00: 00 Yes [facility] cefepime in iso-osm dextrose (CEFEPIME IN DEXTROSE,IS O-OSM) 2 gram/100 mL PgBk 2023-0 - 00:00: 00 Yes [facility] cefepime in iso-osm dextrose (CEFEPIME IN DEXTROSE,IS O-OSM) 2 gram/100 mL PgBk 2023-0 - 00:00: 00 Yes [facility] cefepime in iso-osm dextrose (CEFEPIME IN DEXTROSE,IS O-OSM) 2 gram/100 mL PgBk 2023-0 - 00:00: 00 Yes [facility] cefepime in iso-osm dextrose (CEFEPIME IN DEXTROSE,IS O-OSM) 2 gram/100 mL PgBk 2023-0 - 00:00: 00 Yes [facility] cefepime in iso-osm dextrose (CEFEPIME IN DEXTROSE,IS O-OSM) 2 gram/100 mL PgBk 2023-0 - 00:00: 00 Yes [facility] cefepime in iso-osm dextrose (CEFEPIME IN DEXTROSE,IS O-OSM) 2 gram/100 mL PgBk 2023-0 - 00:00: 00 Yes [facility] cefepime in iso-osm dextrose (CEFEPIME IN DEXTROSE,IS O-OSM) 2 gram/100 mL PgBk 2023-0 - 00:00: 00 Yes [facility] cefepime in iso-osm dextrose (CEFEPIME IN DEXTROSE,IS O-OSM) 2 gram/100 mL PgBk 2023-0 - 00:00: 00 Yes [facility] cefepime in iso-osm dextrose (CEFEPIME IN DEXTROSE,IS O-OSM) 2 gram/100 mL PgBk 2023-0 1-08 00:00: 00 Yes [facility] cefepime in iso-osm dextrose (CEFEPIME IN DEXTROSE,IS O-OSM) 2 gram/100 mL PgBk 2023-0 1-08 00:00: 00 Yes [facility] cefepime in iso-osm dextrose (CEFEPIME IN DEXTROSE,IS O-OSM) 2 gram/100 mL PgBk 2023-0 1-08 00:00: 00 Yes [facility] cefepime in iso-osm dextrose (CEFEPIME IN DEXTROSE,IS O-OSM) 2 gram/100 mL PgBk 2023-0 - 00:00: 00 Yes [facility] cefepime in iso-osm dextrose (CEFEPIME IN DEXTROSE,IS O-OSM) 2 gram/100 mL PgBk 2023-0 - 00:00: 00 Yes [facility] cefepime in iso-osm dextrose (CEFEPIME IN DEXTROSE,IS O-OSM) 2 gram/100 mL PgBk 2023-0 - 00:00: 00 Yes [facility] cefepime in iso-osm dextrose (CEFEPIME IN DEXTROSE,IS O-OSM) 2 gram/100 mL PgBk 2023-0 -08 00:00: 00 Yes [facility] cefepime in iso-osm dextrose (CEFEPIME IN DEXTROSE,IS O-OSM) 2 gram/100 mL PgBk 2023-0 - 00:00: 00 Yes [facility] cefepime in iso-osm dextrose (CEFEPIME IN DEXTROSE,IS O-OSM) 2 gram/100 mL PgBk 2023-0 - 00:00: 00 Yes [facility] cefepime in iso-osm dextrose (CEFEPIME IN DEXTROSE,IS O-OSM) 2 gram/100 mL PgBk 2023-0 -08 00:00: 00 Yes [facility] cefepime in iso-osm dextrose (CEFEPIME IN DEXTROSE,IS O-OSM) 2 gram/100 mL PgBk 2023-0 1-08 00:00: 00 Yes [facility] cefepime in iso-osm dextrose (CEFEPIME IN DEXTROSE,IS O-OSM) 2 gram/100 mL PgBk 2023-0 1-08 00:00: 00 Yes [facility] cefepime in iso-osm dextrose (CEFEPIME IN DEXTROSE,IS O-OSM) 2 gram/100 mL PgBk 2023-0 1- 00:00: 00 Yes [facility] cefepime in iso-osm dextrose (CEFEPIME IN DEXTROSE,IS O-OSM) 2 gram/100 mL PgBk 2023-0 1- 00:00: 00 Yes [facility] cefepime in iso-osm dextrose (CEFEPIME IN DEXTROSE,IS O-OSM) 2 gram/100 mL PgBk 2023-0 - 00:00: 00 Yes [facility] cefepime in iso-osm dextrose (CEFEPIME IN DEXTROSE,IS O-OSM) 2 gram/100 mL PgBk 2023-0 - 00:00: 00 Yes [facility] cefepime in iso-osm dextrose (CEFEPIME IN DEXTROSE,IS O-OSM) 2 gram/100 mL PgBk 2023-0 - 00:00: 00 Yes [facility] cefepime in iso-osm dextrose (CEFEPIME IN DEXTROSE,IS O-OSM) 2 gram/100 mL PgBk 2023-0 - 00:00: 00 Yes [facility] cefepime in iso-osm dextrose (CEFEPIME IN DEXTROSE,IS O-OSM) 2 gram/100 mL PgBk 2023-0 - 00:00: 00 Yes [facility] cefepime in iso-osm dextrose (CEFEPIME IN DEXTROSE,IS O-OSM) 2 gram/100 mL PgBk 2023-0 - 00:00: 00 Yes [facility] cefepime in iso-osm dextrose (CEFEPIME IN DEXTROSE,IS O-OSM) 2 gram/100 mL PgBk 2023-0 - 00:00: 00 Yes [facility] cefepime in iso-osm dextrose (CEFEPIME IN DEXTROSE,IS O-OSM) 2 gram/100 mL PgBk 2023-0 1-08 00:00: 00 Yes [facility] cefepime in iso-osm dextrose (CEFEPIME IN DEXTROSE,IS O-OSM) 2 gram/100 mL PgBk 2023-0 1-08 00:00: 00 Yes [facility] cefepime in iso-osm dextrose (CEFEPIME IN DEXTROSE,IS O-OSM) 2 gram/100 mL PgBk 2023-0 1-08 00:00: 00 Yes [facility] cefepime in iso-osm dextrose (CEFEPIME IN DEXTROSE,IS O-OSM) 2 gram/100 mL PgBk 2023-0 1- 00:00: 00 Yes [facility] cefepime in iso-osm dextrose (CEFEPIME IN DEXTROSE,IS O-OSM) 2 gram/100 mL PgBk 2023-0 -08 00:00: 00 Yes [facility] cefepime in iso-osm dextrose (CEFEPIME IN DEXTROSE,IS O-OSM) 2 gram/100 mL PgBk 2023-0 1-08 00:00: 00 Yes [facility] cefepime in iso-osm dextrose (CEFEPIME IN DEXTROSE,IS O-OSM) 2 gram/100 mL PgBk 2023-0 -08 00:00: 00 Yes [facility] cefepime in iso-osm dextrose (CEFEPIME IN DEXTROSE,IS O-OSM) 2 gram/100 mL PgBk 2023-0 1-08 00:00: 00 Yes [facility] cefepime in iso-osm dextrose (CEFEPIME IN DEXTROSE,IS O-OSM) 2 gram/100 mL PgBk 2023-0 -08 00:00: 00 Yes [facility] cefepime in iso-osm dextrose (CEFEPIME IN DEXTROSE,IS O-OSM) 2 gram/100 mL PgBk 2023-0 1-08 00:00: 00 Yes [facility] cefepime in iso-osm dextrose (CEFEPIME IN DEXTROSE,IS O-OSM) 2 gram/100 mL PgBk 2023-0 1-08 00:00: 00 Yes [facility] cefepime in iso-osm dextrose (CEFEPIME IN DEXTROSE,IS O-OSM) 2 gram/100 mL PgBk 2023-0 1-08 00:00: 00 Yes [facility] cefepime in iso-osm dextrose (CEFEPIME IN DEXTROSE,IS O-OSM) 2 gram/100 mL PgBk 2023-0 1- 00:00: 00 Yes [facility] cefepime in iso-osm dextrose (CEFEPIME IN DEXTROSE,IS O-OSM) 2 gram/100 mL PgBk 2023-0 - 00:00: 00 Yes [facility] cefepime in iso-osm dextrose (CEFEPIME IN DEXTROSE,IS O-OSM) 2 gram/100 mL PgBk 2023-0 - 00:00: 00 Yes [facility] cefepime in iso-osm dextrose (CEFEPIME IN DEXTROSE,IS O-OSM) 2 gram/100 mL PgBk 2023-0 - 00:00: 00 Yes [facility] cefepime in iso-osm dextrose (CEFEPIME IN DEXTROSE,IS O-OSM) 2 gram/100 mL PgBk 2023-0 - 00:00: 00 Yes [facility] cefepime in iso-osm dextrose (CEFEPIME IN DEXTROSE,IS O-OSM) 2 gram/100 mL PgBk 2023-0 - 00:00: 00 Yes [facility] cefepime in iso-osm dextrose (CEFEPIME IN DEXTROSE,IS O-OSM) 2 gram/100 mL PgBk 2023-0 - 00:00: 00 Yes [facility] cefepime in iso-osm dextrose (CEFEPIME IN DEXTROSE,IS O-OSM) 2 gram/100 mL PgBk 2023-0 - 00:00: 00 Yes [facility] cefepime in iso-osm dextrose (CEFEPIME IN DEXTROSE,IS O-OSM) 2 gram/100 mL PgBk 2023-0 - 00:00: 00 Yes [facility] cefepime in iso-osm dextrose (CEFEPIME IN DEXTROSE,IS O-OSM) 2 gram/100 mL PgBk 2023-0 1-08 00:00: 00 Yes [facility] cefepime in iso-osm dextrose (CEFEPIME IN DEXTROSE,IS O-OSM) 2 gram/100 mL PgBk 2023-0 1-08 00:00: 00 Yes [facility] cefepime in iso-osm dextrose (CEFEPIME IN DEXTROSE,IS O-OSM) 2 gram/100 mL PgBk 2023-0 1- 00:00: 00 Yes [facility] cefepime in iso-osm dextrose (CEFEPIME IN DEXTROSE,IS O-OSM) 2 gram/100 mL PgBk 2023-0 - 00:00: 00 Yes [facility] cefepime in iso-osm dextrose (CEFEPIME IN DEXTROSE,IS O-OSM) 2 gram/100 mL PgBk 2023-0 - 00:00: 00 Yes [facility] cefepime in iso-osm dextrose (CEFEPIME IN DEXTROSE,IS O-OSM) 2 gram/100 mL PgBk 2023-0 - 00:00: 00 Yes [facility] cefepime in iso-osm dextrose (CEFEPIME IN DEXTROSE,IS O-OSM) 2 gram/100 mL PgBk 2023-0 - 00:00: 00 Yes [facility] cefepime in iso-osm dextrose (CEFEPIME IN DEXTROSE,IS O-OSM) 2 gram/100 mL PgBk 2023-0 - 00:00: 00 Yes [facility] cefepime in iso-osm dextrose (CEFEPIME IN DEXTROSE,IS O-OSM) 2 gram/100 mL PgBk 2023-0 - 00:00: 00 Yes [facility] cefepime in iso-osm dextrose (CEFEPIME IN DEXTROSE,IS O-OSM) 2 gram/100 mL PgBk 2023-0 - 00:00: 00 Yes [facility] cefepime in iso-osm dextrose (CEFEPIME IN DEXTROSE,IS O-OSM) 2 gram/100 mL PgBk 2023-0 1-08 00:00: 00 Yes [facility] cefepime in iso-osm dextrose (CEFEPIME IN DEXTROSE,IS O-OSM) 2 gram/100 mL PgBk 2023-0 -08 00:00: 00 Yes [facility] cefepime in iso-osm dextrose (CEFEPIME IN DEXTROSE,IS O-OSM) 2 gram/100 mL PgBk 2023-0 - 00:00: 00 Yes [facility] cefepime in iso-osm dextrose (CEFEPIME IN DEXTROSE,IS O-OSM) 2 gram/100 mL PgBk 2023-0 - 00:00: 00 Yes [facility] cefepime in iso-osm dextrose (CEFEPIME IN DEXTROSE,IS O-OSM) 2 gram/100 mL PgBk 2023-0 - 00:00: 00 Yes [facility] cefepime in iso-osm dextrose (CEFEPIME IN DEXTROSE,IS O-OSM) 2 gram/100 mL PgBk 2023-0 - 00:00: 00 Yes [facility] cefepime in iso-osm dextrose (CEFEPIME IN DEXTROSE,IS O-OSM) 2 gram/100 mL PgBk 2023-0 - 00:00: 00 Yes [facility] cefepime in iso-osm dextrose (CEFEPIME IN DEXTROSE,IS O-OSM) 2 gram/100 mL PgBk 2023-0 - 00:00: 00 Yes [facility] cefepime in iso-osm dextrose (CEFEPIME IN DEXTROSE,IS O-OSM) 2 gram/100 mL PgBk 2023-0 - 00:00: 00 Yes [facility] cefepime in iso-osm dextrose (CEFEPIME IN DEXTROSE,IS O-OSM) 2 gram/100 mL PgBk 2023-0 - 00:00: 00 Yes [facility] cefepime in iso-osm dextrose (CEFEPIME IN DEXTROSE,IS O-OSM) 2 gram/100 mL PgBk 2023-0 1-08 00:00: 00 Yes [facility] cefepime in iso-osm dextrose (CEFEPIME IN DEXTROSE,IS O-OSM) 2 gram/100 mL PgBk 2023-0 1-08 00:00: 00 Yes [facility] cefepime in iso-osm dextrose (CEFEPIME IN DEXTROSE,IS O-OSM) 2 gram/100 mL PgBk 2023-0 - 00:00: 00 Yes [facility] cefepime in iso-osm dextrose (CEFEPIME IN DEXTROSE,IS O-OSM) 2 gram/100 mL PgBk 2023-0 - 00:00: 00 Yes [facility] cefepime in iso-osm dextrose (CEFEPIME IN DEXTROSE,IS O-OSM) 2 gram/100 mL PgBk 2023-0 - 00:00: 00 Yes [facility] cefepime in iso-osm dextrose (CEFEPIME IN DEXTROSE,IS O-OSM) 2 gram/100 mL PgBk 2023-0 - 00:00: 00 Yes [facility] cefepime in iso-osm dextrose (CEFEPIME IN DEXTROSE,IS O-OSM) 2 gram/100 mL PgBk 2023-0 - 00:00: 00 Yes [facility] cefepime in iso-osm dextrose (CEFEPIME IN DEXTROSE,IS O-OSM) 2 gram/100 mL PgBk 2023-0 - 00:00: 00 Yes [facility] cefepime in iso-osm dextrose (CEFEPIME IN DEXTROSE,IS O-OSM) 2 gram/100 mL PgBk 2023-0 - 00:00: 00 Yes [facility] cefepime in iso-osm dextrose (CEFEPIME IN DEXTROSE,IS O-OSM) 2 gram/100 mL PgBk 2023-0 - 00:00: 00 Yes [facility] cefepime in iso-osm dextrose (CEFEPIME IN DEXTROSE,IS O-OSM) 2 gram/100 mL PgBk 2023-0 - 00:00: 00 Yes [facility] cefepime in iso-osm dextrose (CEFEPIME IN DEXTROSE,IS O-OSM) 2 gram/100 mL PgBk 2023-0 1-08 00:00: 00 Yes [facility] cefepime in iso-osm dextrose (CEFEPIME IN DEXTROSE,IS O-OSM) 2 gram/100 mL PgBk 2023-0 1-08 00:00: 00 Yes [facility] cefepime in iso-osm dextrose (CEFEPIME IN DEXTROSE,IS O-OSM) 2 gram/100 mL PgBk 2023-0 1-08 00:00: 00 Yes [facility] cefepime in iso-osm dextrose (CEFEPIME IN DEXTROSE,IS O-OSM) 2 gram/100 mL PgBk 2023-0 - 00:00: 00 Yes [facility] cefepime in iso-osm dextrose (CEFEPIME IN DEXTROSE,IS O-OSM) 2 gram/100 mL PgBk 2023-0 - 00:00: 00 Yes [facility] cefepime in iso-osm dextrose (CEFEPIME IN DEXTROSE,IS O-OSM) 2 gram/100 mL PgBk 2023-0 -08 00:00: 00 Yes [facility] cefepime in iso-osm dextrose (CEFEPIME IN DEXTROSE,IS O-OSM) 2 gram/100 mL PgBk 2023-0 -08 00:00: 00 Yes [facility] cefepime in iso-osm dextrose (CEFEPIME IN DEXTROSE,IS O-OSM) 2 gram/100 mL PgBk 2023-0 -08 00:00: 00 Yes [facility] cefepime in iso-osm dextrose (CEFEPIME IN DEXTROSE,IS O-OSM) 2 gram/100 mL PgBk 2023-0 - 00:00: 00 Yes [facility] cefepime in iso-osm dextrose (CEFEPIME IN DEXTROSE,IS O-OSM) 2 gram/100 mL PgBk 2023-0 -08 00:00: 00 Yes [facility] cefepime in iso-osm dextrose (CEFEPIME IN DEXTROSE,IS O-OSM) 2 gram/100 mL PgBk 2023-0 1-08 00:00: 00 Yes [facility] cefepime in iso-osm dextrose (CEFEPIME IN DEXTROSE,IS O-OSM) 2 gram/100 mL PgBk 2023-0 1-08 00:00: 00 Yes [facility] cefepime in iso-osm dextrose (CEFEPIME IN DEXTROSE,IS O-OSM) 2 gram/100 mL PgBk 3-0 1-08 00:00: 00 Yes [facility] cefepime in iso-osm dextrose (CEFEPIME IN DEXTROSE,IS O-OSM) 2 gram/100 mL PgBk 2023-0 1-08 00:00: 00 Yes [facility] cefepime in iso-osm dextrose (CEFEPIME IN DEXTROSE,IS O-OSM) 2 gram/100 mL PgBk 2023-0 1-08 00:00: 00 07-09 00:00 :00 No [facility] cefepime in iso-osm dextrose (CEFEPIME IN DEXTROSE,IS O-OSM) 2 gram/100 mL PgBk 3-0 1-08 00:00: 00 07-09 00:00 :00 No [facility] nystatin 100,000 unit/mL suspension 1-06 00:00: 00 08-19 05:59 :00 No [id number] U Swish and spit out 10 mL 4 (four) times daily for 10 days. [facility] nystatin 100,000 unit/mL suspension 1- 00:00: 00 08-19 05:59 :00 No [id number] U Swish and spit out 10 mL 4 (four) times daily for 10 days. [facility] nystatin 100,000 unit/mL suspension 1-06 00:00: 00 08-19 05:59 :00 No [id number] U Swish and spit out 10 mL 4 (four) times daily for 10 days. [facility] [facility] nystatin 100,000 unit/mL suspension 1-06 00:00: 00 08-19 05:59 :00 No [id number] U Swish and spit out 10 mL 4 (four) times daily for 10 days. [facility] nystatin 100,000 unit/mL suspension 08-08 00:00: 00 08-19 05:59 :00 No [id number] U Swish and spit out 10 mL 4 (four) times daily for 10 days. [facility] traMADoL 50 mg tablet 08-07 12:07: 49 08-07 00:00 :00 No 1-2 tablet as needed [facility] traMADoL 50 mg tablet 08-07 12:07: 49 08-07 00:00 :00 No 1-2 tablet as needed [facility] escitalopra m oxalate 20 mg tablet 08-07 11:59: 27 Yes 1 tablet [facility] escitalopra m oxalate 20 mg tablet 08-07 11:59: 27 Yes 1 tablet [facility] escitalopra m oxalate 20 mg tablet 08-07 11:59: 27 Yes 1 tablet [facility] escitalopra m oxalate 20 mg tablet 08-07 11:59: 27 Yes 1 tablet [facility] escitalopra m oxalate 20 mg tablet 08-07 11:59: 27 Yes 1 tablet [facility] escitalopra m oxalate 20 mg tablet 08-07 11:59: 27 Yes 1 tablet [facility] escitalopra m oxalate 20 mg tablet 08-07 11:59: 27 Yes 1 tablet [facility] escitalopra m oxalate 20 mg tablet 08-07 11:59: 27 Yes 1 tablet [facility] escitalopra m oxalate 20 mg tablet 08-07 11:59: 27 Yes 1 tablet [facility] escitalopra m oxalate 20 mg tablet 08-07 11:59: 27 Yes 1 tablet [facility] escitalopra m oxalate 20 mg tablet 0 08-07 11:59: 27 Yes 1 tablet [facility] escitalopra m oxalate 20 mg tablet 0 08-07 11:59: 27 Yes 1 tablet [facility] escitalopra m oxalate 20 mg tablet 0 08-07 11:59: 27 Yes 1 tablet [facility] escitalopra m oxalate 20 mg tablet 0 08-07 11:59: 27 Yes 1 tablet [facility] escitalopra m oxalate 20 mg tablet 0 08-07 11:59: 27 Yes 1 tablet [facility] escitalopra m oxalate 20 mg tablet 0 08-07 11:59: 27 Yes 1 tablet [facility] escitalopra m oxalate 20 mg tablet 0 08-07 11:59: 27 Yes 1 tablet [facility] escitalopra m oxalate 20 mg tablet 0 08-07 11:59: 27 Yes 1 tablet [facility] escitalopra m oxalate 20 mg tablet 0 08-07 11:59: 27 Yes 1 tablet [facility] escitalopra m oxalate 20 mg tablet 0 08-07 11:59: 27 Yes 1 tablet [facility] escitalopra m oxalate 20 mg tablet 0 08-07 11:59: 27 Yes 1 tablet [facility] escitalopra m oxalate 20 mg tablet 0 08-07 11:59: 27 Yes 1 tablet [facility] escitalopra m oxalate 20 mg tablet 0 08-07 11:59: 27 Yes 1 tablet [facility] escitalopra m oxalate 20 mg tablet 0 08-07 11:59: 27 Yes 1 tablet [facility] escitalopra m oxalate 20 mg tablet 0 08-07 11:59: 27 Yes 1 tablet [facility] escitalopra m oxalate 20 mg tablet 0 08-07 11:59: 27 Yes 1 tablet [facility] escitalopra m oxalate 20 mg tablet 0 08-07 11:59: 27 Yes 1 tablet [facility] escitalopra m oxalate 20 mg tablet 0 08-07 11:59: 27 Yes 1 tablet [facility] escitalopra m oxalate 20 mg tablet 0 08-07 11:59: 27 Yes 1 tablet [facility] escitalopra m oxalate 20 mg tablet 0 08-07 11:59: 27 Yes 1 tablet [facility] escitalopra m oxalate 20 mg tablet 0 08-07 11:59: 27 Yes 1 tablet [facility] escitalopra m oxalate 20 mg tablet 0 08-07 11:59: 27 Yes 1 tablet [facility] escitalopra m oxalate 20 mg tablet 0 08-07 11:59: 27 Yes 1 tablet [facility] escitalopra m oxalate 20 mg tablet 0 08-07 11:59: 27 Yes 1 tablet [facility] escitalopra m oxalate 20 mg tablet 0 08-07 11:59: 27 Yes 1 tablet [facility] escitalopra m oxalate 20 mg tablet 0 08-07 11:59: 27 Yes 1 tablet [facility] escitalopra m oxalate 20 mg tablet 0 08-07 11:59: 27 Yes 1 tablet [facility] escitalopra m oxalate 20 mg tablet 0 08-07 11:59: 27 Yes 1 tablet [facility] escitalopra m oxalate 20 mg tablet 0 08-07 11:59: 27 Yes 1 tablet [facility] escitalopra m oxalate 20 mg tablet 0 08-07 11:59: 27 Yes 1 tablet [facility] escitalopra m oxalate 20 mg tablet 0 08-07 11:59: 27 Yes 1 tablet [facility] escitalopra m oxalate 20 mg tablet 0 08-07 11:59: 27 Yes 1 tablet [facility] escitalopra m oxalate 20 mg tablet 08-07 11:59: 27 Yes 1 tablet [facility] escitalopra m oxalate 20 mg tablet 08-07 11:59: 27 Yes 1 tablet [facility] escitalopra m oxalate 20 mg tablet 08-07 11:59: 27 Yes 1 tablet [facility] escitalopra m oxalate 20 mg tablet 08-07 11:59: 27 Yes 1 tablet [facility] escitalopra m oxalate 20 mg tablet 08-07 11:59: 27 Yes 1 tablet [facility] escitalopra m oxalate 20 mg tablet 08-07 11:59: 27 Yes 1 tablet [facility] escitalopra m oxalate 20 mg tablet 08-07 11:59: 27 Yes 1 tablet [facility] escitalopra m oxalate 20 mg tablet 08-07 11:59: 27 Yes 1 tablet [facility] SANTYL 250 unit/gram ointment 0 08-06 00:00: 00 Yes APPLY NICKEL THICK TO WOUND DAILY [facility] SANTYL 250 unit/gram ointment 0 - 00:00: 00 Yes APPLY NICKEL THICK TO WOUND DAILY [facility] SANTYL 250 unit/gram ointment 0 08-06 00:00: 00 Yes APPLY NICKEL THICK TO WOUND DAILY [facility] SANTYL 250 unit/gram ointment 0 08-06 00:00: 00 Yes APPLY NICKEL THICK TO WOUND DAILY [facility] SANTYL 250 unit/gram ointment 0 08-06 00:00: 00 Yes APPLY NICKEL THICK TO WOUND DAILY [facility] SANTYL 250 unit/gram ointment 0 - 00:00: 00 Yes APPLY NICKEL THICK TO WOUND DAILY [facility] SANTYL 250 unit/gram ointment 2022-0 - 00:00: 00 Yes APPLY NICKEL THICK TO WOUND DAILY [facility] SANTYL 250 unit/gram ointment 0 1-04 00:00: 00 Yes APPLY NICKEL THICK TO WOUND DAILY [facility] SANTYL 250 unit/gram ointment 2022-0 1-04 00:00: 00 Yes APPLY NICKEL THICK TO WOUND DAILY [facility] SANTYL 250 unit/gram ointment 2022-0 1-04 00:00: 00 Yes APPLY NICKEL THICK TO WOUND DAILY [facility] SANTYL 250 unit/gram ointment 2022-0 1-04 00:00: 00 Yes APPLY NICKEL THICK TO WOUND DAILY [facility] SANTYL 250 unit/gram ointment 2022-0 1-04 00:00: 00 Yes APPLY NICKEL THICK TO WOUND DAILY [facility] SANTYL 250 unit/gram ointment 2022-0 1-04 00:00: 00 Yes APPLY NICKEL THICK TO WOUND DAILY [facility] SANTYL 250 unit/gram ointment 2022-0 1-04 00:00: 00 Yes APPLY NICKEL THICK TO WOUND DAILY [facility] SANTYL 250 unit/gram ointment 2022-0 1-04 00:00: 00 Yes APPLY NICKEL THICK TO WOUND DAILY [facility] SANTYL 250 unit/gram ointment 2022-0 1-04 00:00: 00 Yes APPLY NICKEL THICK TO WOUND DAILY [facility] SANTYL 250 unit/gram ointment 2022-0 1-04 00:00: 00 Yes APPLY NICKEL THICK TO WOUND DAILY [facility] SANTYL 250 unit/gram ointment 2022-0 1-04 00:00: 00 Yes APPLY NICKEL THICK TO WOUND DAILY [facility] SANTYL 250 unit/gram ointment 2022-0 1-04 00:00: 00 Yes APPLY NICKEL THICK TO WOUND DAILY [facility] SANTYL 250 unit/gram ointment 2022-0 1-04 00:00: 00 Yes APPLY NICKEL THICK TO WOUND DAILY [facility] SANTYL 250 unit/gram ointment 2022-0 1-04 00:00: 00 Yes APPLY NICKEL THICK TO WOUND DAILY [facility] SANTYL 250 unit/gram ointment 2022-0 1-04 00:00: 00 Yes APPLY NICKEL THICK TO WOUND DAILY [facility] SANTYL 250 unit/gram ointment 2022-0 1-04 00:00: 00 Yes APPLY NICKEL THICK TO WOUND DAILY [facility] SANTYL 250 unit/gram ointment 2022-0 1-04 00:00: 00 Yes APPLY NICKEL THICK TO WOUND DAILY [facility] SANTYL 250 unit/gram ointment 2022-0 - 00:00: 00 Yes APPLY NICKEL THICK TO WOUND DAILY [facility] SANTYL 250 unit/gram ointment 2022-0 1- 00:00: 00 Yes APPLY NICKEL THICK TO WOUND DAILY [facility] SANTYL 250 unit/gram ointment 2022-0 - 00:00: 00 Yes APPLY NICKEL THICK TO WOUND DAILY [facility] SANTYL 250 unit/gram ointment 2022-0 - 00:00: 00 Yes APPLY NICKEL THICK TO WOUND DAILY [facility] SANTYL 250 unit/gram ointment 0 1- 00:00: 00 Yes APPLY NICKEL THICK TO WOUND DAILY [facility] SANTYL 250 unit/gram ointment 2022-0 - 00:00: 00 Yes APPLY NICKEL THICK TO WOUND DAILY [facility] SANTYL 250 unit/gram ointment 2022-0 1- 00:00: 00 Yes APPLY NICKEL THICK TO WOUND DAILY [facility] SANTYL 250 unit/gram ointment 2022-0 - 00:00: 00 Yes APPLY NICKEL THICK TO WOUND DAILY [facility] SANTYL 250 unit/gram ointment 2022-0 1- 00:00: 00 Yes APPLY NICKEL THICK TO WOUND DAILY [facility] SANTYL 250 unit/gram ointment 2022-0 1-04 00:00: 00 Yes APPLY NICKEL THICK TO WOUND DAILY [facility] SANTYL 250 unit/gram ointment 2022-0 1-04 00:00: 00 Yes APPLY NICKEL THICK TO WOUND DAILY [facility] SANTYL 250 unit/gram ointment 2022-0 1- 00:00: 00 Yes APPLY NICKEL THICK TO WOUND DAILY [facility] SANTYL 250 unit/gram ointment 2022-0 1-04 00:00: 00 Yes APPLY NICKEL THICK TO WOUND DAILY [facility] SANTYL 250 unit/gram ointment 2022-0 1-04 00:00: 00 Yes APPLY NICKEL THICK TO WOUND DAILY [facility] SANTYL 250 unit/gram ointment 2022-0 1-04 00:00: 00 Yes APPLY NICKEL THICK TO WOUND DAILY [facility] SANTYL 250 unit/gram ointment 2022-0 1-04 00:00: 00 Yes APPLY NICKEL THICK TO WOUND DAILY [facility] SANTYL 250 unit/gram ointment 2022-0 1-04 00:00: 00 Yes APPLY NICKEL THICK TO WOUND DAILY [facility] SANTYL 250 unit/gram ointment 2022-0 1-04 00:00: 00 Yes APPLY NICKEL THICK TO WOUND DAILY [facility] SANTYL 250 unit/gram ointment 2022-0 1-04 00:00: 00 Yes APPLY NICKEL THICK TO WOUND DAILY [facility] SANTYL 250 unit/gram ointment 2022-0 1-04 00:00: 00 Yes APPLY NICKEL THICK TO WOUND DAILY [facility] SANTYL 250 unit/gram ointment 2022-0 1-04 00:00: 00 Yes APPLY NICKEL THICK TO WOUND DAILY [facility] SANTYL 250 unit/gram ointment 2022-0 1-04 00:00: 00 Yes APPLY NICKEL THICK TO WOUND DAILY [facility] SANTYL 250 unit/gram ointment 2022-0 1-04 00:00: 00 Yes APPLY NICKEL THICK TO WOUND DAILY [facility] SANTYL 250 unit/gram ointment 2022-0 1-04 00:00: 00 Yes APPLY NICKEL THICK TO WOUND DAILY [facility] SANTYL 250 unit/gram ointment 2022-0 1-04 00:00: 00 Yes APPLY NICKEL THICK TO WOUND DAILY [facility] SANTYL 250 unit/gram ointment 2022-0 1-04 00:00: 00 Yes APPLY NICKEL THICK TO WOUND DAILY [facility] SANTYL 250 unit/gram ointment 2022-0 1-04 00:00: 00 Yes APPLY NICKEL THICK TO WOUND DAILY [facility] SANTYL 250 unit/gram ointment 2022-0 1-04 00:00: 00 Yes APPLY NICKEL THICK TO WOUND DAILY [facility] SANTYL 250 unit/gram ointment 3-0 1-04 00:00: 00 Yes APPLY NICKEL THICK TO WOUND DAILY [facility] SANTYL 250 unit/gram ointment 2022-0 1-04 00:00: 00 Yes APPLY NICKEL THICK TO WOUND DAILY [facility] SANTYL 250 unit/gram ointment 2022-0 1-04 00:00: 00 Yes APPLY NICKEL THICK TO WOUND DAILY [facility] SANTYL 250 unit/gram ointment 2022-0 1-04 00:00: 00 Yes APPLY NICKEL THICK TO WOUND DAILY [facility] SANTYL 250 unit/gram ointment 2022-0 1-04 00:00: 00 Yes APPLY NICKEL THICK TO WOUND DAILY [facility] SANTYL 250 unit/gram ointment 2022-0 1-04 00:00: 00 Yes APPLY NICKEL THICK TO WOUND DAILY [facility] SANTYL 250 unit/gram ointment 2022-0 1-04 00:00: 00 Yes APPLY NICKEL THICK TO WOUND DAILY [facility] SANTYL 250 unit/gram ointment 2022-0 1-04 00:00: 00 Yes APPLY NICKEL THICK TO WOUND DAILY [facility] SANTYL 250 unit/gram ointment 2022-0 1-04 00:00: 00 Yes APPLY NICKEL THICK TO WOUND DAILY [facility] SANTYL 250 unit/gram ointment 2022-0 1-04 00:00: 00 Yes APPLY NICKEL THICK TO WOUND DAILY [facility] SANTYL 250 unit/gram ointment 2022-0 1-04 00:00: 00 Yes APPLY NICKEL THICK TO WOUND DAILY [facility] SANTYL 250 unit/gram ointment 3-0 1-04 00:00: 00 Yes APPLY NICKEL THICK TO WOUND DAILY [facility] SANTYL 250 unit/gram ointment 3-0 1-04 00:00: 00 Yes APPLY NICKEL THICK TO WOUND DAILY [facility] SANTYL 250 unit/gram ointment 2022-0 1-04 00:00: 00 Yes APPLY NICKEL THICK TO WOUND DAILY [facility] SANTYL 250 unit/gram ointment 2022-0 1-04 00:00: 00 Yes APPLY NICKEL THICK TO WOUND DAILY [facility] SANTYL 250 unit/gram ointment 2022-0 1- 00:00: 00 Yes APPLY NICKEL THICK TO WOUND DAILY [facility] SANTYL 250 unit/gram ointment 2022-0 1- 00:00: 00 Yes APPLY NICKEL THICK TO WOUND DAILY [facility] SANTYL 250 unit/gram ointment 2022-0 1- 00:00: 00 Yes APPLY NICKEL THICK TO WOUND DAILY [facility] SANTYL 250 unit/gram ointment 2022-0 1- 00:00: 00 Yes APPLY NICKEL THICK TO WOUND DAILY [facility] SANTYL 250 unit/gram ointment 2022-0 1- 00:00: 00 Yes APPLY NICKEL THICK TO WOUND DAILY [facility] SANTYL 250 unit/gram ointment 2022-0 1-04 00:00: 00 Yes APPLY NICKEL THICK TO WOUND DAILY [facility] SANTYL 250 unit/gram ointment 0 1- 00:00: 00 Yes APPLY NICKEL THICK TO WOUND DAILY [facility] SANTYL 250 unit/gram ointment 2022-0 1- 00:00: 00 Yes APPLY NICKEL THICK TO WOUND DAILY [facility] SANTYL 250 unit/gram ointment 2022-0 1-04 00:00: 00 Yes APPLY NICKEL THICK TO WOUND DAILY [facility] SANTYL 250 unit/gram ointment 2022-0 1-04 00:00: 00 Yes APPLY NICKEL THICK TO WOUND DAILY [facility] SANTYL 250 unit/gram ointment 2022-0 1-04 00:00: 00 Yes APPLY NICKEL THICK TO WOUND DAILY [facility] SANTYL 250 unit/gram ointment 2022-0 1-04 00:00: 00 Yes APPLY NICKEL THICK TO WOUND DAILY [facility] SANTYL 250 unit/gram ointment 2022-0 1-04 00:00: 00 Yes APPLY NICKEL THICK TO WOUND DAILY [facility] SANTYL 250 unit/gram ointment 2022-0 1-04 00:00: 00 Yes APPLY NICKEL THICK TO WOUND DAILY [facility] SANTYL 250 unit/gram ointment 2022-0 1-04 00:00: 00 Yes APPLY NICKEL THICK TO WOUND DAILY [facility] SANTYL 250 unit/gram ointment 2022-0 1-04 00:00: 00 Yes APPLY NICKEL THICK TO WOUND DAILY [facility] SANTYL 250 unit/gram ointment 2022-0 1-04 00:00: 00 Yes APPLY NICKEL THICK TO WOUND DAILY [facility] SANTYL 250 unit/gram ointment 2022-0 1-04 00:00: 00 Yes APPLY NICKEL THICK TO WOUND DAILY [facility] SANTYL 250 unit/gram ointment 2022-0 1- 00:00: 00 Yes APPLY NICKEL THICK TO WOUND DAILY [facility] SANTYL 250 unit/gram ointment 2022-0 1-04 00:00: 00 Yes APPLY NICKEL THICK TO WOUND DAILY [facility] SANTYL 250 unit/gram ointment 2022-0 1-04 00:00: 00 Yes APPLY NICKEL THICK TO WOUND DAILY [facility] SANTYL 250 unit/gram ointment 2022-0 1-04 00:00: 00 Yes APPLY NICKEL THICK TO WOUND DAILY [facility] SANTYL 250 unit/gram ointment 2022-0 1-04 00:00: 00 Yes APPLY NICKEL THICK TO WOUND DAILY [facility] SANTYL 250 unit/gram ointment 2022-0 1-04 00:00: 00 Yes APPLY NICKEL THICK TO WOUND DAILY [facility] SANTYL 250 unit/gram ointment 2022-0 1-04 00:00: 00 Yes APPLY NICKEL THICK TO WOUND DAILY [facility] SANTYL 250 unit/gram ointment 3-0 1-04 00:00: 00 Yes APPLY NICKEL THICK TO WOUND DAILY [facility] SANTYL 250 unit/gram ointment 2022-0 1-04 00:00: 00 Yes APPLY NICKEL THICK TO WOUND DAILY [facility] SANTYL 250 unit/gram ointment 2022-0 1-04 00:00: 00 Yes APPLY NICKEL THICK TO WOUND DAILY [facility] SANTYL 250 unit/gram ointment 2022-0 1-04 00:00: 00 Yes APPLY NICKEL THICK TO WOUND DAILY [facility] SANTYL 250 unit/gram ointment 2022-0 1-04 00:00: 00 Yes APPLY NICKEL THICK TO WOUND DAILY [facility] SANTYL 250 unit/gram ointment 2022-0 1-04 00:00: 00 Yes APPLY NICKEL THICK TO WOUND DAILY [facility] SANTYL 250 unit/gram ointment 2022-0 1-04 00:00: 00 Yes APPLY NICKEL THICK TO WOUND DAILY [facility] SANTYL 250 unit/gram ointment 2022-0 1-04 00:00: 00 Yes APPLY NICKEL THICK TO WOUND DAILY [facility] SANTYL 250 unit/gram ointment 2022-0 1-04 00:00: 00 Yes APPLY NICKEL THICK TO WOUND DAILY [facility] SANTYL 250 unit/gram ointment 2022-0 1-04 00:00: 00 Yes APPLY NICKEL THICK TO WOUND DAILY [facility] SANTYL 250 unit/gram ointment 2022-0 1-04 00:00: 00 Yes APPLY NICKEL THICK TO WOUND DAILY [facility] SANTYL 250 unit/gram ointment 2022-0 1-04 00:00: 00 Yes APPLY NICKEL THICK TO WOUND DAILY [facility] SANTYL 250 unit/gram ointment 2022-0 1-04 00:00: 00 Yes APPLY NICKEL THICK TO WOUND DAILY [facility] SANTYL 250 unit/gram ointment 2022-0 1-04 00:00: 00 Yes APPLY NICKEL THICK TO WOUND DAILY [facility] SANTYL 250 unit/gram ointment 2022-0 1-04 00:00: 00 Yes APPLY NICKEL THICK TO WOUND DAILY [facility] SANTYL 250 unit/gram ointment 2023-0 1-04 00:00: 00 Yes APPLY NICKEL THICK TO WOUND DAILY [facility] SANTYL 250 unit/gram ointment 2022-0 1-04 00:00: 00 Yes APPLY NICKEL THICK TO WOUND DAILY [facility] SANTYL 250 unit/gram ointment 2022-0 1-04 00:00: 00 Yes APPLY NICKEL THICK TO WOUND DAILY [facility] SANTYL 250 unit/gram ointment 2022-0 1-04 00:00: 00 Yes APPLY NICKEL THICK TO WOUND DAILY [facility] SANTYL 250 unit/gram ointment 2022-0 1-04 00:00: 00 Yes APPLY NICKEL THICK TO WOUND DAILY [facility] SANTYL 250 unit/gram ointment 2022-0 1-04 00:00: 00 Yes APPLY NICKEL THICK TO WOUND DAILY [facility] SANTYL 250 unit/gram ointment 2022-0 1-04 00:00: 00 Yes APPLY NICKEL THICK TO WOUND DAILY [facility] SANTYL 250 unit/gram ointment 2022-0 1-04 00:00: 00 Yes APPLY NICKEL THICK TO WOUND DAILY [facility] SANTYL 250 unit/gram ointment 2022-0 1-04 00:00: 00 Yes APPLY NICKEL THICK TO WOUND DAILY [facility] SANTYL 250 unit/gram ointment 2022-0 1-04 00:00: 00 Yes APPLY NICKEL THICK TO WOUND DAILY [facility] SANTYL 250 unit/gram ointment 2022-0 1-04 00:00: 00 Yes APPLY NICKEL THICK TO WOUND DAILY [facility] SANTYL 250 unit/gram ointment 2022-0 1-04 00:00: 00 Yes APPLY NICKEL THICK TO WOUND DAILY [facility] SANTYL 250 unit/gram ointment 2022-0 1-04 00:00: 00 Yes APPLY NICKEL THICK TO WOUND DAILY [facility] SANTYL 250 unit/gram ointment 2022-0 1-04 00:00: 00 Yes APPLY NICKEL THICK TO WOUND DAILY [facility] SANTYL 250 unit/gram ointment 2022-0 1-04 00:00: 00 Yes APPLY NICKEL THICK TO WOUND DAILY [facility] SANTYL 250 unit/gram ointment 2022-0 1-04 00:00: 00 Yes APPLY NICKEL THICK TO WOUND DAILY [facility] SANTYL 250 unit/gram ointment 2022-0 1-04 00:00: 00 Yes APPLY NICKEL THICK TO WOUND DAILY [facility] SANTYL 250 unit/gram ointment 2022-0 - 00:00: 00 Yes APPLY NICKEL THICK TO WOUND DAILY [facility] SANTYL 250 unit/gram ointment 2022-0 1- 00:00: 00 Yes APPLY NICKEL THICK TO WOUND DAILY [facility] SANTYL 250 unit/gram ointment 2022-0 - 00:00: 00 Yes APPLY NICKEL THICK TO WOUND DAILY [facility] SANTYL 250 unit/gram ointment 2022-0 - 00:00: 00 Yes APPLY NICKEL THICK TO WOUND DAILY [facility] SANTYL 250 unit/gram ointment 0 1- 00:00: 00 Yes APPLY NICKEL THICK TO WOUND DAILY [facility] SANTYL 250 unit/gram ointment 2022-0 - 00:00: 00 Yes APPLY NICKEL THICK TO WOUND DAILY [facility] SANTYL 250 unit/gram ointment 2022-0 1- 00:00: 00 Yes APPLY NICKEL THICK TO WOUND DAILY [facility] SANTYL 250 unit/gram ointment 2022-0 - 00:00: 00 Yes APPLY NICKEL THICK TO WOUND DAILY [facility] SANTYL 250 unit/gram ointment 2022-0 1- 00:00: 00 Yes APPLY NICKEL THICK TO WOUND DAILY [facility] SANTYL 250 unit/gram ointment 2022-0 1-04 00:00: 00 Yes APPLY NICKEL THICK TO WOUND DAILY [facility] SANTYL 250 unit/gram ointment 2022-0 1-04 00:00: 00 Yes APPLY NICKEL THICK TO WOUND DAILY [facility] SANTYL 250 unit/gram ointment 2022-0 1- 00:00: 00 Yes APPLY NICKEL THICK TO WOUND DAILY [facility] SANTYL 250 unit/gram ointment 2022-0 1-04 00:00: 00 Yes APPLY NICKEL THICK TO WOUND DAILY [facility] SANTYL 250 unit/gram ointment 2022-0 1-04 00:00: 00 Yes APPLY NICKEL THICK TO WOUND DAILY [facility] SANTYL 250 unit/gram ointment 2022-0 1-04 00:00: 00 Yes APPLY NICKEL THICK TO WOUND DAILY [facility] SANTYL 250 unit/gram ointment 2022-0 1-04 00:00: 00 Yes APPLY NICKEL THICK TO WOUND DAILY [facility] SANTYL 250 unit/gram ointment 2022-0 1- 00:00: 00 Yes APPLY NICKEL THICK TO WOUND DAILY [facility] SANTYL 250 unit/gram ointment 0 1- 00:00: 00 Yes APPLY NICKEL THICK TO WOUND DAILY [facility] SANTYL 250 unit/gram ointment 2022-0 1- 00:00: 00 Yes APPLY NICKEL THICK TO WOUND DAILY [facility] SANTYL 250 unit/gram ointment 2022-0 1-04 00:00: 00 Yes APPLY NICKEL THICK TO WOUND DAILY [facility] SANTYL 250 unit/gram ointment 0 1- 00:00: 00 Yes APPLY NICKEL THICK TO WOUND DAILY [facility] SANTYL 250 unit/gram ointment 2022-0 - 00:00: 00 Yes APPLY NICKEL THICK TO WOUND DAILY [facility] SANTYL 250 unit/gram ointment 2022-0 1-04 00:00: 00 Yes APPLY NICKEL THICK TO WOUND DAILY [facility] SANTYL 250 unit/gram ointment 2022-0 1-04 00:00: 00 Yes APPLY NICKEL THICK TO WOUND DAILY [facility] SANTYL 250 unit/gram ointment 2022-0 1-04 00:00: 00 Yes APPLY NICKEL THICK TO WOUND DAILY [facility] SANTYL 250 unit/gram ointment 2022-0 1-04 00:00: 00 Yes APPLY NICKEL THICK TO WOUND DAILY [facility] HYDROcodone -acetaminop hen 7.5-325 mg per tablet 2021-08 00:00: 00 Yes 2745 1{tbl} Take 1 tablet by mouth every 6 (six) hours as needed for Pain. Indication s: chronic pain [facility] HYDROcodone -acetaminop hen 7.5-325 mg per tablet 2021-08 00:00: 00 Yes 2745 1{tbl} Take 1 tablet by mouth every 6 (six) hours as needed for Pain. Indication s: chronic pain [facility] HYDROcodone -acetaminop hen 7.5-325 mg per tablet 2021-08 00:00: 00 Yes 2745 1{tbl} Take 1 tablet by mouth every 6 (six) hours as needed for Pain. [facility]: [facility]:00: 00 Yes [facility] HYDROcodone -acetaminop hen 7.5-325 mg per tablet 2021-08 00:00: 00 Yes 2745 1{tbl} Take 1 tablet by mouth every 6 (six) hours as needed for Pain. Indication s: chronic pain [facility] vancomycin 5 gram injection 2021-08 00:00: 00 Yes [facility] HYDROcodone -acetaminop hen 7.5-325 mg per tablet 2021-08 00:00: 00 Yes 2745 1{tbl} Take 1 tablet by mouth every 6 (six) hours as needed for Pain. Indication s: chronic pain [facility] vancomycin 5 gram injection 2021-08 00:00: 00 Yes [facility] HYDROcodone -acetaminop hen 7.5-325 mg per tablet 2021-08 00:00: 00 Yes 2745 1{tbl} Take 1 tablet by mouth every 6 (six) hours as needed for Pain. Ind[facility]: [facility] 2021-08 00:00: 00 Yes [facility] HYDROcodone -acetaminop hen 7.5-325 mg per tablet 2021-08 00:00: 00 Yes 2745 1{tbl} Take 1 tablet by mouth every 6 (six) hours as needed for Pain. Indication s: chronic pain [facility] vancomycin 5 gram injection 2021-08 00:00: 00 Yes [facility] HYDROcodone -acetaminop hen 7.5-325 mg per tablet 2021-08 00:00: 00 Yes 2745 1{tbl} Take 1 tablet by mouth every 6 (six) hours as needed for Pain. Indication s: chronic pain [facility] vancomycin 5 gram injection 2021-08 00:00: 00 Yes [facility] HYDROcodone -acetaminop hen 7.5-325 mg per tablet 2021-08 00:00: 00 Yes 2745 1{tbl} Take 1 tablet by mouth every 6 (six) hours as needed for Pain. Indication s: chronic pain [facility] vancomycin 5 gram injection 2021-08 00:00: 00 Yes [facility] HYDROcodone -acetaminop hen 7.5-325 mg per tablet 2021-08 00:00: 00 Yes 2745 1{tbl} Take 1 tablet by mouth every 6 (six) hours as needed for Pain. Indication s: chronic pain [facility] vancomycin 5 gram injection 2021-08 00:00: 00 Yes [facility] HYDROcodone -acetaminop hen 7.5-325 mg per tablet 2021-08 00:00: 00 Yes 2745 1{tbl} Take 1 tablet by mouth every 6 (six) hours as needed for Pain. Indication s: chronic pain [facility] vancomycin 5 gram injection 2021-08 00:00: 00 Yes [facility] HYDROcodone -acetaminop hen 7.5-325 mg per tablet 2021-08 00:00: 00 Yes 2745 1{tbl} Take 1 tablet by mouth every 6 (six) hours as needed for Pain. Indication s: chronic pain [facility] vancomycin 5 gram injection 2021-08 00:00: 00 Yes [facility] HYDROcodone -acetaminop hen 7.5-325 mg per tablet 2021-08 00:00: 00 Yes 2745 1{tbl} Take 1 tablet by mouth every 6 (six) hours as needed for Pain. Indication s: chronic pain [facility] vancomycin 5 gram injection 2021-08 00:00: 00 Yes [facility] HYDROcodone -acetaminop hen 7.5-325 mg per tablet 2021-08 00:00: 00 Yes 2745 1{tbl} Take 1 tablet by mouth every 6 (six) hours as needed for Pain. Indication s: chronic pain [facility] vancomycin 5 gram injection 2021-08 00:00: 00 Yes [facility] HYDROcodone -acetaminop hen 7.5-325 mg per tablet 2021-08 00:00: 00 Yes 2745 1{tbl} Take 1 tablet by mouth every 6 (six) hours as needed for Pain. Indication s: chronic pain [facility] vancomycin 5 gram injection 2021-08 00:00: 00 Yes [facility] HYDROcodone -acetaminop hen 7.5-325 mg per tablet 2021-08 00:00: 00 Yes 2745 1{tbl} Take 1 tablet by mouth every 6 (six) hours as needed for Pain. Indication s: chronic pain [facility] vancomycin 5 gram injection 2021-08 00:00: 00 Yes [facility] HYDROcodone -acetaminop hen 7.5-325 mg per tablet 2021-08 00:00: 00 Yes 2745 1{tbl} Take 1 tablet by mouth every 6 (six) hours as needed for Pain. Indication s: chronic pain [facility] vancomycin 5 gram injection 2021-08 00:00: 00 Yes [facility] vancomycin 5 gram injection 2021-08 00:00: 00 Yes [facility] vancomycin 5 gram injection 2021-08 00:00: 00 Yes [facility] vancomycin 5 gram injection 2021-08 00:00: 00 Yes [facility] vancomycin 5 gram injection 2021-08 00:00: 00 Yes [facility] vancomycin 5 gram injection 2021-09-30 00:00: 00 Yes [facility] vancomycin 5 gram injection 2021-09-30 00:00: 00 Yes [facility] vancomycin 5 gram injection 2021-09-30 00:00: 00 Yes [facility] vancomycin 5 gram injection 2021-09-30 00:00: 00 Yes [facility] vancomycin 5 gram injection 2021-09-30 00:00: 00 Yes [facility] vancomycin 5 gram injection 2021-09-30 00:00: 00 Yes [facility] vancomycin 5 gram injection 2021-09-30 00:00: 00 Yes [facility] vancomycin 5 gram injection 2021-09-30 00:00: 00 Yes [facility] vancomycin 5 gram injection 2021-09-30 00:00: 00 Yes [facility] vancomycin 5 gram injection 2021-09-30 00:00: 00 Yes [facility] vancomycin 5 gram injection 2021-09-30 00:00: 00 Yes [facility] vancomycin 5 gram injection 2021-09-30 00:00: 00 Yes [facility] vancomycin 5 gram injection 2021-09-30 00:00: 00 Yes [facility] vancomycin 5 gram injection 2021-09-30 00:00: 00 Yes [facility] vancomycin 5 gram injection 2021-09-30 00:00: 00 Yes [facility] vancomycin 5 gram injection 2021-09-30 00:00: 00 Yes [facility] vancomycin 5 gram injection 2021-09-30 00:00: 00 Yes [facility] vancomycin 5 gram injection 2021-09-30 00:00: 00 Yes [facility] vancomycin 5 gram injection 2021-09-30 00:00: 00 Yes [facility] vancomycin 5 gram injection 2021-08 04- 00:00: 00 Yes [facility] vancomycin 5 gram injection 2021- 2- 00:00: 00 Yes [facility] vancomycin 5 gram injection 2021-1 2- 00:00: 00 Yes [facility] vancomycin 5 gram injection 2021- 2- 00:00: 00 Yes [facility] vancomycin 5 gram injection 2021-09-30 00:00: 00 Yes [facility] vancomycin 5 gram injection 2021-08 04- 00:00: 00 Yes [facility] vancomycin 5 gram injection 2021-08 04- 00:00: 00 Yes [facility] vancomycin 5 gram injection 2021-09-30 00:00: 00 Yes [facility] vancomycin 5 gram injection 2021-09-30 00:00: 00 Yes [facility] vancomycin 5 gram injection 2021-09-30 00:00: 00 Yes [facility] vancomycin 5 gram injection 2021-08 04- 00:00: 00 Yes [facility] vancomycin 5 gram injection 2021-08 04- 00:00: 00 Yes [facility] vancomycin 5 gram injection 2021-08 04- 00:00: 00 Yes [facility] vancomycin 5 gram injection 2021-08 04- 00:00: 00 Yes [facility] vancomycin 5 gram injection 2021-09-30 00:00: 00 Yes [facility] vancomycin 5 gram injection 2021-08 04- 00:00: 00 Yes [facility] vancomycin 5 gram injection 2021- 2- 00:00: 00 Yes [facility] vancomycin 5 gram injection 2021- 2- 00:00: 00 Yes [facility] vancomycin 5 gram injection 2021- 2- 00:00: 00 Yes [facility] vancomycin 5 gram injection 2021- 2- 00:00: 00 Yes [facility] vancomycin 5 gram injection 2021- 2- 00:00: 00 Yes [facility] vancomycin 5 gram injection 2021- 2- 00:00: 00 Yes [facility] vancomycin 5 gram injection 2021-08 04- 00:00: 00 Yes [facility] vancomycin 5 gram injection 2021-08 04- 00:00: 00 Yes [facility] vancomycin 5 gram injection 2021-08 04- 00:00: 00 Yes [facility] vancomycin 5 gram injection 2021-09-30 00:00: 00 Yes [facility] vancomycin 5 gram injection 2021-08 04- 00:00: 00 Yes [facility] vancomycin 5 gram injection 2021-09-30 00:00: 00 Yes [facility] vancomycin 5 gram injection 2021-09-30 00:00: 00 Yes [facility] vancomycin 5 gram injection 2021-09-30 00:00: 00 Yes [facility] vancomycin 5 gram injection 2021-09-30 00:00: 00 Yes [facility] vancomycin 5 gram injection 2021-09-30 00:00: 00 Yes [facility] vancomycin 5 gram injection 2021-09-30 00:00: 00 Yes [facility] vancomycin 5 gram injection 2021-09-30 00:00: 00 Yes [facility] vancomycin 5 gram injection 2021-09-30 00:00: 00 Yes [facility] vancomycin 5 gram injection 2021-09-30 00:00: 00 Yes [facility] vancomycin 5 gram injection 2021-09-30 00:00: 00 Yes [facility] vancomycin 5 gram injection 2021-08 04- 00:00: 00 Yes [facility] vancomycin 5 gram injection 2021-08 04- 00:00: 00 Yes [facility] vancomycin 5 gram injection 2021-08 04- 00:00: 00 Yes [facility] vancomycin 5 gram injection 2021-08 04- 00:00: 00 Yes [facility] vancomycin 5 gram injection 2021-08 04- 00:00: 00 Yes [facility] vancomycin 5 gram injection 2021- 2- 00:00: 00 Yes [facility] vancomycin 5 gram injection 2021-1 2- 00:00: 00 Yes [facility] vancomycin 5 gram injection 2021-1 2- 00:00: 00 Yes [facility] vancomycin 5 gram injection 2021- 2- 00:00: 00 Yes [facility] vancomycin 5 gram injection 2021-09-30 00:00: 00 Yes [facility] vancomycin 5 gram injection 2021-08 04- 00:00: 00 Yes [facility] vancomycin 5 gram injection 2021-09-30 00:00: 00 Yes [facility] vancomycin 5 gram injection 2021-09-30 00:00: 00 Yes [facility] vancomycin 5 gram injection 2021-09-30 00:00: 00 Yes [facility] vancomycin 5 gram injection 2021-08 04- 00:00: 00 Yes [facility] vancomycin 5 gram injection 2021-08 04- 00:00: 00 Yes [facility] vancomycin 5 gram injection 2021-09-30 00:00: 00 Yes [facility] vancomycin 5 gram injection 2021-09-30 00:00: 00 Yes [facility] vancomycin 5 gram injection 2021-09-30 00:00: 00 Yes [facility] vancomycin 5 gram injection 2021-09-30 00:00: 00 Yes [facility] vancomycin 5 gram injection 2021- 2- 00:00: 00 Yes [facility] vancomycin 5 gram injection 2021- 2- 00:00: 00 Yes [facility] vancomycin 5 gram injection 2021- 2- 00:00: 00 Yes [facility] vancomycin 5 gram injection 2021- 2- 00:00: 00 Yes [facility] vancomycin 5 gram injection 2021-08 04- 00:00: 00 Yes [facility] vancomycin 5 gram injection 2021- 2- 00:00: 00 Yes [facility] vancomycin 5 gram injection 2021-08 04 00:00: 00 Yes [facility] vancomycin 5 gram injection 2021-09-30 00:00: 00 Yes [facility] vancomycin 5 gram injection 2021-09-30 00:00: 00 Yes [facility] vancomycin 5 gram injection 2021-09-30 00:00: 00 Yes [facility] vancomycin 5 gram injection 2021-09-30 00:00: 00 Yes [facility] vancomycin 5 gram injection 2021-09-30 00:00: 00 Yes [facility] vancomycin 5 gram injection 2021-09-30 00:00: 00 Yes [facility] vancomycin 5 gram injection 2021-09-30 00:00: 00 Yes [facility] vancomycin 5 gram injection 2021-09-30 00:00: 00 Yes [facility] vancomycin 5 gram injection 2021-09-30 00:00: 00 Yes [facility] vancomycin 5 gram injection 2021-09-30 00:00: 00 Yes [facility] vancomycin 5 gram injection 2021-09-30 00:00: 00 Yes [facility] vancomycin 5 gram injection 2021-09-30 00:00: 00 Yes [facility] vancomycin 5 gram injection 2021-09-30 00:00: 00 Yes [facility] vancomycin 5 gram injection 2021-09-30 00:00: 00 Yes [facility] vancomycin 5 gram injection 2021-09-30 00:00: 00 Yes [facility] vancomycin 5 gram injection 2021-09-30 00:00: 00 Yes [facility] vancomycin 5 gram injection 2021-09-30 00:00: 00 Yes [facility] vancomycin 5 gram injection 2021-09-30 00:00: 00 Yes [facility] vancomycin 5 gram injection 2021-09-30 00:00: 00 Yes [facility] vancomycin 5 gram injection 2021-09-30 00:00: 00 Yes [facility] vancomycin 5 gram injection 2021-09-30 00:00: 00 Yes [facility] vancomycin 5 gram injection 2021-1 2- 00:00: 00 Yes [facility] vancomycin 5 gram injection 2021-08 04- 00:00: 00 Yes [facility] vancomycin 5 gram injection 2021-09-30 00:00: 00 Yes [facility] vancomycin 5 gram injection 2021-09-30 00:00: 00 Yes [facility] vancomycin 5 gram injection 2021-09-30 00:00: 00 Yes [facility] vancomycin 5 gram injection 2021-09-30 00:00: 00 Yes [facility] vancomycin 5 gram injection 2021-09-30 00:00: 00 Yes [facility] vancomycin 5 gram injection 2021-09-30 00:00: 00 Yes [facility] vancomycin 5 gram injection 2021-09-30 00:00: 00 Yes [facility] vancomycin 5 gram injection 2021-09-30 00:00: 00 Yes [facility] vancomycin 5 gram injection 2021-09-30 00:00: 00 Yes [facility] vancomycin 5 gram injection 2021-09-30 00:00: 00 Yes [facility] vancomycin 5 gram injection 2021-09-30 00:00: 00 Yes [facility] vancomycin 5 gram injection 2021-09-30 00:00: 00 Yes [facility] vancomycin 5 gram injection 2021-08 04- 00:00: 00 Yes [facility] vancomycin 5 gram injection 2021-08 04- 00:00: 00 Yes [facility] vancomycin 5 gram injection 2021- 2- 00:00: 00 Yes [facility] vancomycin 5 gram injection 2021-08 04- 00:00: 00 Yes [facility] vancomycin 5 gram injection 2021-08 04- 00:00: 00 Yes [facility] vancomycin 5 gram injection 2021- 2- 00:00: 00 Yes [facility] vancomycin 5 gram injection 2021-08 00:00: 00 Yes [facility] vancomycin 5 gram injection 2021-08 00:00: 00 07-09 00:00 :00 No [facility] vancomycin 5 gram injection 2021-08 00:00: 00 07-09 00:00 :00 No [facility] HYDROcodone -acetaminop hen 7.5-325 mg per tablet 2021-08 00:00: 00 09-10 00:00 :00 No 2745 1{tbl} Take 1 tablet by mouth every 6 (six) hours as needed for Pain. Indication s: chronic pain [facility] HYDROcodone -acetaminop hen 7.5-325 mg per tablet 2021-08 00:00: 00 09-10 00:00 :00 No 2745 1{tbl} Take 1 tablet by mouth every 6 (six) hours as needed for Pain. [facility]: [facility]- [facility]:00: 00 Yes [id number] TAKE 1 CAPSULE BY MOUTH FOUR TIMES DAILY [facility] gabapentin 300 mg capsule 2021-08 2- 00:00: 00 Yes [id number] TAKE 1 CAPSULE BY MOUTH FOUR TIMES DAILY [facility] gabapentin 300 mg capsule 2021-08 2-20 00:00: 00 Yes [id number] TAKE 1 CAPSULE BY MOUTH FOUR TIMES DAILY [facility] gabapentin 300 mg capsule 2021-08 2-20 00:00: 00 Yes [id number] TAKE 1 CAPSULE BY MOUTH FOUR TIMES DAILY [facility] gabapentin 300 mg capsule 2021-08 2-20 00:00: 00 Yes [id number] TAKE 1 CAPSULE BY MOUTH FOUR TIMES DAILY [facility] gabapentin 300 mg capsule 2021-08 2-20 00:00: 00 Yes [id number] TAKE 1 CAPSULE BY MOUTH FOUR TIMES DAILY [facility] gabapentin 300 mg capsule 2021-08 2-20 00:00: 00 Yes [id number] TAKE 1 CAPSULE BY MOUTH FOUR TIMES DAILY [facility] gabapentin 300 mg capsule 2022-1 2-20 00:00: 00 Yes [id number] TAKE 1 CAPSULE BY MOUTH FOUR TIMES DAILY [facility] gabapentin 300 mg capsule 2021-1 2-20 00:00: 00 Yes [id number] TAKE 1 CAPSULE BY MOUTH FOUR TIMES DAILY [facility] gabapentin 300 mg capsule 2021-1 2-20 00:00: 00 Yes [id number] TAKE 1 CAPSULE BY MOUTH FOUR TIMES DAILY [facility] gabapentin 300 mg capsule 2021-1 2-20 00:00: 00 Yes [id number] TAKE 1 CAPSULE BY MOUTH FOUR TIMES DAILY [facility] gabapentin 300 mg capsule 2021-1 2-20 00:00: 00 Yes [id number] TAKE 1 CAPSULE BY MOUTH FOUR TIMES DAILY [facility] gabapentin 300 mg capsule 2021-1 2-20 00:00: 00 Yes [id number] TAKE 1 CAPSULE BY MOUTH FOUR TIMES DAILY [facility] gabapentin 300 mg capsule 2021-1 2-20 00:00: 00 Yes [id number] TAKE 1 CAPSULE BY MOUTH FOUR TIMES DAILY [facility] gabapentin 300 mg capsule 2021-1 2-20 00:00: 00 Yes [id number] TAKE 1 CAPSULE BY MOUTH FOUR TIMES DAILY [facility] gabapentin 300 mg capsule 2021-1 2-20 00:00: 00 Yes [id number] TAKE 1 CAPSULE BY MOUTH FOUR TIMES DAILY [facility] gabapentin 300 mg capsule 2021-1 2-20 00:00: 00 Yes [id number] TAKE 1 CAPSULE BY MOUTH FOUR TIMES DAILY [facility] gabapentin 300 mg capsule 2021-1 2-20 00:00: 00 Yes [id number] TAKE 1 CAPSULE BY MOUTH FOUR TIMES DAILY [facility] gabapentin 300 mg capsule 2021-1 2-20 00:00: 00 Yes [id number] TAKE 1 CAPSULE BY MOUTH FOUR TIMES DAILY [facility] gabapentin 300 mg capsule 2021-1 2-20 00:00: 00 Yes [id number] TAKE 1 CAPSULE BY MOUTH FOUR TIMES DAILY [facility] gabapentin 300 mg capsule 2021-1 2-20 00:00: 00 Yes [id number] TAKE 1 CAPSULE BY MOUTH FOUR TIMES DAILY [facility] gabapentin 300 mg capsule 2021-1 2-20 00:00: 00 Yes [id number] TAKE 1 CAPSULE BY MOUTH FOUR TIMES DAILY [facility] gabapentin 300 mg capsule 2021-1 2-20 00:00: 00 Yes [id number] TAKE 1 CAPSULE BY MOUTH FOUR TIMES DAILY [facility] gabapentin 300 mg capsule 2021-1 2-20 00:00: 00 Yes [id number] TAKE 1 CAPSULE BY MOUTH FOUR TIMES DAILY [facility] gabapentin 300 mg capsule 2021-1 2-20 00:00: 00 Yes [id number] TAKE 1 CAPSULE BY MOUTH FOUR TIMES DAILY [facility] gabapentin 300 mg capsule 2021-1 2-20 00:00: 00 Yes [id number] TAKE 1 CAPSULE BY MOUTH FOUR TIMES DAILY [facility] gabapentin 300 mg capsule 2021-1 2-20 00:00: 00 Yes [id number] TAKE 1 CAPSULE BY MOUTH FOUR TIMES DAILY [facility] gabapentin 300 mg capsule 2021-1 2-20 00:00: 00 Yes [id number] TAKE 1 CAPSULE BY MOUTH FOUR TIMES DAILY [facility] gabapentin 300 mg capsule 2021-1 2-20 00:00: 00 Yes [id number] TAKE 1 CAPSULE BY MOUTH FOUR TIMES DAILY [facility] gabapentin 300 mg capsule 2021-1 2-20 00:00: 00 Yes [id number] TAKE 1 CAPSULE BY MOUTH FOUR TIMES DAILY [facility] gabapentin 300 mg capsule 2021-1 2-20 00:00: 00 Yes [id number] TAKE 1 CAPSULE BY MOUTH FOUR TIMES DAILY [facility] gabapentin 300 mg capsule 2021-1 2-20 00:00: 00 Yes [id number] TAKE 1 CAPSULE BY MOUTH FOUR TIMES DAILY [facility] gabapentin 300 mg capsule 2021-1 2-20 00:00: 00 Yes [id number] TAKE 1 CAPSULE BY MOUTH FOUR TIMES DAILY [facility] gabapentin 300 mg capsule 2021-1 2-20 00:00: 00 Yes [id number] TAKE 1 CAPSULE BY MOUTH FOUR TIMES DAILY [facility] gabapentin 300 mg capsule 2021-1 2-20 00:00: 00 Yes [id number] TAKE 1 CAPSULE BY MOUTH FOUR TIMES DAILY [facility] gabapentin 300 mg capsule 2021-1 2-20 00:00: 00 Yes [id number] TAKE 1 CAPSULE BY MOUTH FOUR TIMES DAILY [facility] gabapentin 300 mg capsule 2021-1 2-20 00:00: 00 Yes [id number] TAKE 1 CAPSULE BY MOUTH FOUR TIMES DAILY [facility] gabapentin 300 mg capsule 2021-1 2-20 00:00: 00 Yes [id number] TAKE 1 CAPSULE BY MOUTH FOUR TIMES DAILY [facility] gabapentin 300 mg capsule 2021-1 2-20 00:00: 00 Yes [id number] TAKE 1 CAPSULE BY MOUTH FOUR TIMES DAILY [facility] gabapentin 300 mg capsule 2021-1 2-20 00:00: 00 Yes [id number] TAKE 1 CAPSULE BY MOUTH FOUR TIMES DAILY [facility] gabapentin 300 mg capsule 2021-1 2-20 00:00: 00 Yes [id number] TAKE 1 CAPSULE BY MOUTH FOUR TIMES DAILY [facility] gabapentin 300 mg capsule 2021-1 2-20 00:00: 00 Yes [id number] TAKE 1 CAPSULE BY MOUTH FOUR TIMES DAILY [facility] gabapentin 300 mg capsule 2021-1 2-20 00:00: 00 Yes [id number] TAKE 1 CAPSULE BY MOUTH FOUR TIMES DAILY [facility] gabapentin 300 mg capsule 2021-1 2-20 00:00: 00 Yes [id number] TAKE 1 CAPSULE BY MOUTH FOUR TIMES DAILY [facility] gabapentin 300 mg capsule 2021-1 2-20 00:00: 00 Yes [id number] TAKE 1 CAPSULE BY MOUTH FOUR TIMES DAILY [facility] gabapentin 300 mg capsule 2021-1 2-20 00:00: 00 Yes [id number] TAKE 1 CAPSULE BY MOUTH FOUR TIMES DAILY [facility] gabapentin 300 mg capsule 2021-1 2-20 00:00: 00 Yes [id number] TAKE 1 CAPSULE BY MOUTH FOUR TIMES DAILY [facility] gabapentin 300 mg capsule 2021-1 2-20 00:00: 00 Yes [id number] TAKE 1 CAPSULE BY MOUTH FOUR TIMES DAILY [facility] gabapentin 300 mg capsule 2021-1 2-20 00:00: 00 Yes [id number] TAKE 1 CAPSULE BY MOUTH FOUR TIMES DAILY [facility] gabapentin 300 mg capsule 2021-1 2-20 00:00: 00 Yes [id number] TAKE 1 CAPSULE BY MOUTH FOUR TIMES DAILY [facility] gabapentin 300 mg capsule 2021-1 2-20 00:00: 00 Yes [id number] TAKE 1 CAPSULE BY MOUTH FOUR TIMES DAILY [facility] gabapentin 300 mg capsule 2021-1 2-20 00:00: 00 Yes [id number] TAKE 1 CAPSULE BY MOUTH FOUR TIMES DAILY [facility] gabapentin 300 mg capsule 2021-1 2-20 00:00: 00 Yes [id number] TAKE 1 CAPSULE BY MOUTH FOUR TIMES DAILY [facility] gabapentin 300 mg capsule 2021-1 2-20 00:00: 00 Yes [id number] TAKE 1 CAPSULE BY MOUTH FOUR TIMES DAILY [facility] gabapentin 300 mg capsule 2021-1 2-20 00:00: 00 Yes [id number] TAKE 1 CAPSULE BY MOUTH FOUR TIMES DAILY [facility] gabapentin 300 mg capsule 2021-1 2-20 00:00: 00 Yes [id number] TAKE 1 CAPSULE BY MOUTH FOUR TIMES DAILY [facility] gabapentin 300 mg capsule 2021-1 2-20 00:00: 00 Yes [id number] TAKE 1 CAPSULE BY MOUTH FOUR TIMES DAILY [facility] gabapentin 300 mg capsule 2021-1 2-20 00:00: 00 Yes [id number] TAKE 1 CAPSULE BY MOUTH FOUR TIMES DAILY [facility] gabapentin 300 mg capsule 2021-1 2-20 00:00: 00 Yes [id number] TAKE 1 CAPSULE BY MOUTH FOUR TIMES DAILY [facility] gabapentin 300 mg capsule 2021-1 2-20 00:00: 00 Yes [id number] TAKE 1 CAPSULE BY MOUTH FOUR TIMES DAILY [facility] gabapentin 300 mg capsule 2021-1 2-20 00:00: 00 Yes [id number] TAKE 1 CAPSULE BY MOUTH FOUR TIMES DAILY [facility] gabapentin 300 mg capsule 2021-1 2-20 00:00: 00 Yes [id number] TAKE 1 CAPSULE BY MOUTH FOUR TIMES DAILY [facility] gabapentin 300 mg capsule 2-1 2-20 00:00: 00 Yes [id number] TAKE 1 CAPSULE BY MOUTH FOUR TIMES DAILY [facility] gabapentin 300 mg capsule 2021-1 2-20 00:00: 00 Yes [id number] TAKE 1 CAPSULE BY MOUTH FOUR TIMES DAILY [facility] gabapentin 300 mg capsule 2021-1 2-20 00:00: 00 Yes [id number] TAKE 1 CAPSULE BY MOUTH FOUR TIMES DAILY [facility] gabapentin 300 mg capsule 2021-1 2-20 00:00: 00 Yes [id number] TAKE 1 CAPSULE BY MOUTH FOUR TIMES DAILY [facility] gabapentin 300 mg capsule 2021-1 2-20 00:00: 00 Yes [id number] TAKE 1 CAPSULE BY MOUTH FOUR TIMES DAILY [facility] gabapentin 300 mg capsule 2021-1 2-20 00:00: 00 Yes [id number] TAKE 1 CAPSULE BY MOUTH FOUR TIMES DAILY [facility] gabapentin 300 mg capsule 2021-1 2-20 00:00: 00 Yes [id number] TAKE 1 CAPSULE BY MOUTH FOUR TIMES DAILY [facility] gabapentin 300 mg capsule 2021-1 2-20 00:00: 00 Yes [id number] TAKE 1 CAPSULE BY MOUTH FOUR TIMES DAILY [facility] gabapentin 300 mg capsule 2021-1 2-20 00:00: 00 Yes [id number] TAKE 1 CAPSULE BY MOUTH FOUR TIMES DAILY [facility] gabapentin 300 mg capsule 2021-1 2-20 00:00: 00 Yes [id number] TAKE 1 CAPSULE BY MOUTH FOUR TIMES DAILY [facility] gabapentin 300 mg capsule 2021-1 2-20 00:00: 00 Yes [id number] TAKE 1 CAPSULE BY MOUTH FOUR TIMES DAILY [facility] gabapentin 300 mg capsule 2021-1 2-20 00:00: 00 Yes [id number] TAKE 1 CAPSULE BY MOUTH FOUR TIMES DAILY [facility] gabapentin 300 mg capsule 2021-1 2-20 00:00: 00 Yes [id number] TAKE 1 CAPSULE BY MOUTH FOUR TIMES DAILY [facility] gabapentin 300 mg capsule 2021-1 2-20 00:00: 00 Yes [id number] TAKE 1 CAPSULE BY MOUTH FOUR TIMES DAILY [facility] gabapentin 300 mg capsule 2021-1 2-20 00:00: 00 Yes [id number] TAKE 1 CAPSULE BY MOUTH FOUR TIMES DAILY [facility] gabapentin 300 mg capsule 2021-08 00:00: 00 Yes [id number] TAKE 1 CAPSULE BY MOUTH FOUR TIMES DAILY [facility] gabapentin 300 mg capsule 2021-08 00:00: 00 Yes [id number] TAKE 1 CAPSULE BY MOUTH FOUR TIMES DAILY [facility] gabapentin 300 mg capsule 2021-08 00:00: 00 Yes [id number] TAKE 1 CAPSULE BY MOUTH FOUR TIMES DAILY [facility] gabapentin 300 mg capsule 2021-08 00:00: 00 12-28 00:00 :00 No [id number] TAKE 1 CAPSULE BY MOUTH FOUR TIMES DAILY [facility] NIFEdipine ER 60 mg tablet 2021-08 00:00: 00 Yes [id number] 60mg Take 1 tablet by mouth in the morning and 1 tablet in the evening. [facility] NIFEdipine ER 60 mg tablet 2021-08 00:00: 00 Yes [id number] 60mg Take 1 tablet by mouth in the morning and 1 tablet in the evening. [facility] NIFEdipine ER 60 mg tablet 2021-08 00:00: 00 Yes [id number] 60mg Take 1 tablet by mouth in the morning and 1 tablet in the evening. [facility] NIFEdipine ER 60 mg tablet 2021-08 00:00: 00 Yes [id number] 60mg Take 1 tablet by mouth in the morning and 1 tablet in the evening. [facility] NIFEdipine ER 60 mg tablet 2021-08 00:00: 00 Yes [id number] 60mg Take 1 tablet by mouth in the morning and 1 tablet in the evening. [facility] NIFEdipine ER 60 mg tablet 2021-08 00:00: 00 Yes [id number] 60mg Take 1 tablet by mouth in the morning and 1 tablet in the evening. [facility] latanoprost 0.005 % ophthalmic drops 2021-08 00:00: 00 Yes INSTILL 1 DROP INTO BOTH EYES ONCE DAILY [facility] NIFEdipine ER 60 mg tablet 2021-08 00:00: 00 Yes [id number] 60mg Take 1 tablet by mouth in the morning and 1 tablet in the evening. [facility] 2021-08 00:00: 00 Yes INSTILL 1 DROP INTO BOTH EYES ONCE DAILY [facility] 2021-08 00:00: 00 Yes [id number] 60mg Take 1 tablet by mouth in the morning and 1 tablet in the evening. [facility] lat[facility]rost [facility] ophthalmic drops 2021-08 00:00: 00 Yes INSTILL 1 DROP INTO BOTH EYES ONCE DAILY [facility] 2021-08 00:00: 00 Yes [id number] 60mg Take 1 tablet by mouth in the morning and 1 tablet in the evening. [facility] latanoprost 0.005 % ophthalmic drops 2021-08 00:00: 00 Yes INSTILL 1 DROP INTO BOTH EYES ONCE DAILY [facility] NIFEdipine ER 60 mg tablet 2021-08 00:00: 00 Yes [id number] 60mg Take 1 tablet by mouth in the morning and 1 tablet in the evening. [facility] latanoprost 0.005 % ophthalmic drops 2021-08 00:00: 00 Yes INSTILL 1 DROP INTO BOTH EYES ONCE DAILY [facility] NIFEdipine ER 60 mg tablet 2021-08 00:00: 00 Yes [id number] 60mg Take 1 tablet by mouth in the morning and 1 tablet in the evening. [facility] latanoprost 0.005 % ophthalmic drops 2021-08 00:00: 00 Yes INSTILL 1 DROP INTO BOTH EYES ONCE DAILY [facility] NIFEdipine ER 60 mg tablet 2021-08 00:00: 00 Yes [id number] 60mg Take 1 tablet by mouth in the morning and 1 tablet in the evening. [facility] latanoprost 0.005 % ophthalmic drops 2021-08 00:00: 00 Yes INSTILL 1 DROP INTO BOTH EYES ONCE DAILY [facility] NIFEdipine ER 60 mg tablet 2021-08 00:00: 00 Yes [id number] 60mg Take 1 tablet by mouth in the morning and 1 tablet in the evening. [facility] latanoprost 0.005 % ophthalmic drops 2021-08 00:00: 00 Yes INSTILL 1 DROP INTO BOTH EYES ONCE DAILY [facility] NIFEdipine ER 60 mg tablet 2021-08 00:00: 00 Yes [id number] 60mg Take 1 tablet by mouth in the morning and 1 tablet in the evening. [facility] latanoprost 0.005 % ophthalmic drops 2021-08 00:00: 00 Yes INSTILL 1 DROP INTO BOTH EYES ONCE DAILY [facility] NIFEdipine ER 60 mg tablet 2021-08 00:00: 00 Yes [id number] 60mg Take 1 tablet by mouth in the morning and 1 tablet in the evening. [facility] latanoprost 0.005 % ophthalmic drops 2021-08 00:00: 00 Yes INSTILL 1 DROP INTO BOTH EYES ONCE DAILY [facility] NIFEdipine ER 60 mg tablet 2021-08 00:00: 00 Yes [id number] 60mg Take 1 tablet by mouth in the morning and 1 tablet in the evening. [facility] latanoprost 0.005 % ophthalmic drops 2021-08 00:00: 00 Yes INSTILL 1 DROP INTO BOTH EYES ONCE DAILY [facility] NIFEdipine ER 60 mg tablet 2021-08 00:00: 00 Yes [id number] 60mg Take 1 tablet by mouth in the morning and 1 tablet in the evening. [facility] latanoprost 0.005 % ophthalmic drops 2021-08 00:00: 00 Yes INSTILL 1 DROP INTO BOTH EYES ONCE DAILY [facility] NIFEdipine ER 60 mg tablet 2021-08 00:00: 00 Yes [id number] 60mg Take 1 tablet by mouth in the morning and 1 tablet in the evening. [facility] latanoprost 0.005 % ophthalmic drops 2021-08 00:00: 00 Yes INSTILL 1 DROP INTO BOTH EYES ONCE DAILY [facility] NIFEdipine ER 60 mg tablet 2021-08 00:00: 00 Yes [id number] 60mg Take 1 tablet by mouth in the morning and 1 tablet in the evening. [facility] latanoprost 0.005 % ophthalmic drops 2021-08 00:00: 00 Yes INSTILL 1 DROP INTO BOTH EYES ONCE DAILY [facility] 2021-08 00:00: 00 Yes [id number] 60mg Take 1 tablet by mouth in the morning and 1 tablet in the evening. [facility] NIFEdip[facility] ER 60 mg tablet 2021-08 00:00: 00 Yes [id number] 60mg Take 1 tablet by mouth in the morning and 1 tablet in the evening. [facility] latanoprost 0.005 % ophthalmic drops 2021-08 00:00: 00 Yes INSTILL 1 DROP INTO BOTH EYES ONCE DAILY [facility] NIFEdipine ER 60 mg tablet 2021-08 00:00: 00 Yes [id number] 60mg Take 1 tablet by mouth in the morning and 1 tablet in the evening. [facility] latanoprost 0.005 % ophthalmic drops 2021-08 00:00: 00 Yes INSTILL 1 DROP INTO BOTH EYES ONCE DAILY [facility] NIFEdipine ER 60 mg tablet 2021-08 00:00: 00 Yes [id number] 60mg Take 1 tablet by mouth in the morning and 1 tablet in the evening. [facility] latanoprost 0.005 % ophthalmic drops 2021-08 00:00: 00 Yes INSTILL 1 DROP INTO BOTH EYES ONCE DAILY [facility] NIFEdipine ER 60 mg tablet 2021-08 00:00: 00 Yes [id number] 60mg Take 1 tablet by mouth in the morning and 1 tablet in the evening. [facility] latanoprost 0.005 % ophthalmic drops 2021-08 00:00: 00 Yes INSTILL 1 DROP INTO BOTH EYES ONCE DAILY [facility] NIFEdipine ER 60 mg tablet 2021-08 00:00: 00 Yes [id number] 60mg Take 1 tablet by mouth in the morning and 1 tablet in the evening. [facility] latanoprost 0.005 % ophthalmic drops 2021-08 00:00: 00 Yes INSTILL 1 DROP INTO BOTH EYES ONCE DAILY [facility] NIFEdipine ER 60 mg tablet 2021-08 00:00: 00 Yes [id number] 60mg Take 1 tablet by mouth in the morning and 1 tablet in the evening. [facility] latanoprost 0.005 % ophthalmic drops 2021-08 00:00: 00 Yes INSTILL 1 DROP INTO BOTH EYES ONCE DAILY [facility] NIFEdipine ER 60 mg tablet 2021-08 00:00: 00 Yes [id number] 60mg Take 1 tablet by mouth in the morning and 1 tablet in the evening. [facility] latanoprost 0.005 % ophthalmic drops 2021-08 00:00: 00 Yes INSTILL 1 DROP INTO BOTH EYES ONCE DAILY [facility] NIFEdipine ER 60 mg tablet 2021-08 00:00: 00 Yes [id number] 60mg Take 1 tablet by mouth in the morning and 1 tablet in the evening. [facility] latanoprost 0.005 % ophthalmic drops 2021-08 00:00: 00 Yes INSTILL 1 DROP INTO BOTH EYES ONCE DAILY [facility] NIFEdipine ER 60 mg tablet 2021-08 00:00: 00 Yes [id number] 60mg Take 1 tablet by mouth in the morning and 1 tablet in the evening. [facility] latanoprost 0.005 % ophthalmic drops 2021-08 00:00: 00 Yes INSTILL 1 DROP INTO BOTH EYES ONCE DAILY [facility] NIFEdipine ER 60 mg tablet 2021-08 00:00: 00 Yes [id number] 60mg Take 1 tablet by mouth in the morning and 1 tablet in the evening. [facility] latanoprost 0.005 % ophthalmic drops 2021-08 00:00: 00 Yes INSTILL 1 DROP INTO BOTH EYES ONCE DAILY [facility] NIFEdipine ER 60 mg tablet 2021-08 00:00: 00 Yes [id number] 60mg Take 1 tablet by mouth in the morning and 1 tablet in the evening. [facility] latanoprost 0.005 % ophthalmic drops 2021-08 00:00: 00 Yes INSTILL 1 DROP INTO BOTH EYES ONCE DAILY [facility] mg tablet 2021-08 00:00: 00 Yes [id number] 60mg Take 1 tablet by mouth in the morning and 1 tablet in the evening. [facility] latanoprost 0.005 % ophthalmic drops 2021-08 00:00: 00 Yes INSTILL 1 DROP INTO BOTH EYES ONCE DAILY [facility] NIFEd[facility] 60 mg tablet 2021-08 00:00: 00 Yes [id number] 60mg Take 1 tablet by mouth in the morning and 1 tablet in the evening. [facility] latanoprost 0.005 % ophthalmic drops 2021-08 00:00: 00 Yes INSTILL 1 DROP INTO BOTH EYES ONCE DAILY [facility] mg tablet 2021-08 00:00: 00 Yes [id number] 60mg Take 1 tablet by mouth in the morning and 1 tablet in the evening. [facility] latanoprost 0.005 % ophthalmic drops 2021-08 00:00: 00 Yes INSTILL 1 DROP INTO BOTH EYES ONCE DAILY [facility] NIFEdipine ER 60 mg tablet 2021-08 00:00: 00 Yes [id number] 60mg Take 1 tablet by mouth in the morning and 1 tablet in the evening. [facility] latanoprost 0.005 % ophthalmic drops 2021-08 00:00: 00 Yes INSTILL 1 DROP INTO BOTH EYES ONCE DAILY [facility] NIFEdipine ER 60 mg tablet 2021-08 00:00: 00 Yes [id number] 60mg Take 1 tablet by mouth in the morning and 1 tablet in the evening. [facility] latanoprost 0.005 % ophthalmic drops 2021-08 00:00: 00 Yes INSTILL 1 DROP INTO BOTH EYES ONCE DAILY [facility] NIFEdipine ER 60 mg tablet 2021-08 00:00: 00 Yes [id number] 60mg Take 1 tablet by mouth in the morning and 1 tablet in the evening. [facility] latanoprost 0.005 % ophthalmic drops 2021-08 00:00: 00 Yes INSTILL 1 DROP INTO BOTH EYES ONCE DAILY [facility] NIFEdipine ER 60 mg tablet 2021-08 00:00: 00 Yes [id number] 60mg Take 1 tablet by mouth in the morning and 1 tablet in the evening. [facility] latanoprost 0.005 % ophthalmic drops 2021-08 00:00: 00 Yes INSTILL 1 DROP INTO BOTH EYES ONCE DAILY [facility] latanoprost 0.005 % ophthalmic drops 2021-08 00:00: 00 Yes INSTILL 1 DROP INTO BOTH EYES ONCE DAILY [facility] latanoprost 0.005 % ophthalmic drops 2021-08 00:00: 00 Yes INSTILL 1 DROP INTO BOTH EYES ONCE DAILY [facility] latanoprost 0.005 % ophthalmic drops 2021-08 00:00: 00 Yes INSTILL 1 DROP INTO BOTH EYES ONCE DAILY [facility] latanoprost 0.005 % ophthalmic drops 2021-08 00:00: 00 Yes INSTILL 1 DROP INTO BOTH EYES ONCE DAILY [facility] latanoprost 0.005 % ophthalmic drops 2021-08 00:00: 00 Yes INSTILL 1 DROP INTO BOTH EYES ONCE DAILY [facility] latanoprost 0.005 % ophthalmic drops 2021-08 00:00: 00 Yes INSTILL 1 DROP INTO BOTH EYES ONCE DAILY [facility] latanoprost 0.005 % ophthalmic drops 2021-08 00:00: 00 Yes INSTILL 1 DROP INTO BOTH EYES ONCE DAILY [facility] latanoprost 0.005 % ophthalmic drops 2021-08 00:00: 00 Yes INSTILL 1 DROP INTO BOTH EYES ONCE DAILY [facility] latanoprost 0.005 % ophthalmic drops 2021-08 00:00: 00 Yes INSTILL 1 DROP INTO BOTH EYES ONCE DAILY [facility] latanoprost 0.005 % ophthalmic drops 2021-08 00:00: 00 Yes INSTILL 1 DROP INTO BOTH EYES ONCE DAILY [facility] latanoprost 0.005 % ophthalmic drops 2021-08 00:00: 00 Yes INSTILL 1 DROP INTO BOTH EYES ONCE DAILY [facility] latanoprost 0.005 % ophthalmic drops 2021-08 00:00: 00 Yes INSTILL 1 DROP INTO BOTH EYES ONCE DAILY [facility] latanoprost 0.005 % ophthalmic drops 2021-08 00:00: 00 Yes INSTILL 1 DROP INTO BOTH EYES ONCE DAILY [facility] latanoprost 0.005 % ophthalmic drops 2021-08 00:00: 00 Yes INSTILL 1 DROP INTO BOTH EYES ONCE DAILY [facility] latanoprost 0.005 % ophthalmic drops 2021-08 00:00: 00 Yes INSTILL 1 DROP INTO BOTH EYES ONCE DAILY [facility] latanoprost 0.005 % ophthalmic drops 2021-08 00:00: 00 Yes INSTILL 1 DROP INTO BOTH EYES ONCE DAILY [facility] latanoprost 0.005 % ophthalmic drops 2021-08 00:00: 00 Yes INSTILL 1 DROP INTO BOTH EYES ONCE DAILY [facility] latanoprost 0.005 % ophthalmic drops 2021-08 00:00: 00 Yes INSTILL 1 DROP INTO BOTH EYES ONCE DAILY [facility] latanoprost 0.005 % ophthalmic drops 2021-08 00:00: 00 Yes INSTILL 1 DROP INTO BOTH EYES ONCE DAILY [facility] latanoprost 0.005 % ophthalmic drops 2021-08 00:00: 00 Yes INSTILL 1 DROP INTO BOTH EYES ONCE DAILY [facility] latanoprost 0.005 % ophthalmic drops 2021-08 00:00: 00 Yes INSTILL 1 DROP INTO BOTH EYES ONCE DAILY [facility] latanoprost 0.005 % ophthalmic drops 2021-08 00:00: 00 Yes INSTILL 1 DROP INTO BOTH EYES ONCE DAILY [facility] latanoprost 0.005 % ophthalmic drops 2021-08 00:00: 00 Yes INSTILL 1 DROP INTO BOTH EYES ONCE DAILY [facility] latanoprost 0.005 % ophthalmic drops 2021-08 00:00: 00 Yes INSTILL 1 DROP INTO BOTH EYES ONCE DAILY [facility] latanoprost 0.005 % ophthalmic drops 2021-08 00:00: 00 Yes INSTILL 1 DROP INTO BOTH EYES ONCE DAILY [facility] latanoprost 0.005 % ophthalmic drops 2021-08 00:00: 00 Yes INSTILL 1 DROP INTO BOTH EYES ONCE DAILY [facility] latanoprost 0.005 % ophthalmic drops 2021-08 00:00: 00 Yes INSTILL 1 DROP INTO BOTH EYES ONCE DAILY [facility] latanoprost 0.005 % ophthalmic drops 2021-08 00:00: 00 Yes INSTILL 1 DROP INTO BOTH EYES ONCE DAILY [facility] latanoprost 0.005 % ophthalmic drops 2021-08 00:00: 00 Yes INSTILL 1 DROP INTO BOTH EYES ONCE DAILY [facility] latanoprost 0.005 % ophthalmic drops 2021-08 00:00: 00 Yes INSTILL 1 DROP INTO BOTH EYES ONCE DAILY [facility] latanoprost 0.005 % ophthalmic drops 2021-08 00:00: 00 Yes INSTILL 1 DROP INTO BOTH EYES ONCE DAILY [facility] latanoprost 0.005 % ophthalmic drops 2021-08 00:00: 00 Yes INSTILL 1 DROP INTO BOTH EYES ONCE DAILY [facility] latanoprost 0.005 % ophthalmic drops 2021-08 00:00: 00 Yes INSTILL 1 DROP INTO BOTH EYES ONCE DAILY [facility] latanoprost 0.005 % ophthalmic drops 2021-08 00:00: 00 Yes INSTILL 1 DROP INTO BOTH EYES ONCE DAILY [facility] latanoprost 0.005 % ophthalmic drops 2021-08 00:00: 00 Yes INSTILL 1 DROP INTO BOTH EYES ONCE DAILY [facility] latanoprost 0.005 % ophthalmic drops 2021-08 00:00: 00 Yes INSTILL 1 DROP INTO BOTH EYES ONCE DAILY [facility] latanoprost 0.005 % ophthalmic drops 2021-08 00:00: 00 Yes INSTILL 1 DROP INTO BOTH EYES ONCE DAILY [facility] latanoprost 0.005 % ophthalmic drops 2021-08 00:00: 00 Yes INSTILL 1 DROP INTO BOTH EYES ONCE DAILY [facility] latanoprost 0.005 % ophthalmic drops 2021-08 00:00: 00 Yes INSTILL 1 DROP INTO BOTH EYES ONCE DAILY [facility] latanoprost 0.005 % ophthalmic drops 2021-08 00:00: 00 Yes INSTILL 1 DROP INTO BOTH EYES ONCE DAILY [facility] latanoprost 0.005 % ophthalmic drops 2021-08 00:00: 00 Yes INSTILL 1 DROP INTO BOTH EYES ONCE DAILY [facility] latanoprost 0.005 % ophthalmic drops 2021-08 00:00: 00 Yes INSTILL 1 DROP INTO BOTH EYES ONCE DAILY [facility] latanoprost 0.005 % ophthalmic drops 2021-08 00:00: 00 Yes INSTILL 1 DROP INTO BOTH EYES ONCE DAILY [facility] latanoprost 0.005 % ophthalmic drops 2021-08 00:00: 00 Yes INSTILL 1 DROP INTO BOTH EYES ONCE DAILY [facility] latanoprost 0.005 % ophthalmic drops 2021-08 00:00: 00 Yes INSTILL 1 DROP INTO BOTH EYES ONCE DAILY [facility] latanoprost 0.005 % ophthalmic drops 2021-08 00:00: 00 Yes INSTILL 1 DROP INTO BOTH EYES ONCE DAILY [facility] latanoprost 0.005 % ophthalmic drops 2021-08 00:00: 00 Yes INSTILL 1 DROP INTO BOTH EYES ONCE DAILY [facility] latanoprost 0.005 % ophthalmic drops 2021-08 00:00: 00 Yes INSTILL 1 DROP INTO BOTH EYES ONCE DAILY [facility] latanoprost 0.005 % ophthalmic drops 2021-08 00:00: 00 Yes INSTILL 1 DROP INTO BOTH EYES ONCE DAILY [facility] latanoprost 0.005 % ophthalmic drops 2021-08 00:00: 00 Yes INSTILL 1 DROP INTO BOTH EYES ONCE DAILY [facility] latanoprost 0.005 % ophthalmic drops 2021-08 00:00: 00 Yes INSTILL 1 DROP INTO BOTH EYES ONCE DAILY [facility] latanoprost 0.005 % ophthalmic drops 2021-08 00:00: 00 Yes INSTILL 1 DROP INTO BOTH EYES ONCE DAILY [facility] latanoprost 0.005 % ophthalmic drops 2021-08 00:00: 00 Yes INSTILL 1 DROP INTO BOTH EYES ONCE DAILY [facility] latanoprost 0.005 % ophthalmic drops 2021-08 00:00: 00 Yes INSTILL 1 DROP INTO BOTH EYES ONCE DAILY [facility] latanoprost 0.005 % ophthalmic drops 2021-08 00:00: 00 Yes INSTILL 1 DROP INTO BOTH EYES ONCE DAILY [facility] latanoprost 0.005 % ophthalmic drops 2021-08 00:00: 00 Yes INSTILL 1 DROP INTO BOTH EYES ONCE DAILY [facility] latanoprost 0.005 % ophthalmic drops 2021-08 00:00: 00 Yes INSTILL 1 DROP INTO BOTH EYES ONCE DAILY [facility] latanoprost 0.005 % ophthalmic drops 2021-08 00:00: 00 Yes INSTILL 1 DROP INTO BOTH EYES ONCE DAILY [facility] latanoprost 0.005 % ophthalmic drops 2021-08 00:00: 00 Yes INSTILL 1 DROP INTO BOTH EYES ONCE DAILY [facility] latanoprost 0.005 % ophthalmic drops 2021-08 00:00: 00 Yes INSTILL 1 DROP INTO BOTH EYES ONCE DAILY [facility] latanoprost 0.005 % ophthalmic drops 2021-08- 00:00: 00 Yes INSTILL 1 DROP INTO BOTH EYES ONCE DAILY [facility] latanoprost 0.005 % ophthalmic drops 2021-08 00:00: 00 Yes INSTILL 1 DROP INTO BOTH EYES ONCE DAILY [facility] latanoprost 0.005 % ophthalmic drops 2021-08 00:00: 00 Yes INSTILL 1 DROP INTO BOTH EYES ONCE DAILY [facility] latanoprost 0.005 % ophthalmic drops 2021-08 00:00: 00 Yes INSTILL 1 DROP INTO BOTH EYES ONCE DAILY [facility] latanoprost 0.005 % ophthalmic drops 2021-08 00:00: 00 Yes INSTILL 1 DROP INTO BOTH EYES ONCE DAILY [facility] latanoprost 0.005 % ophthalmic drops 2021-08 00:00: 00 Yes INSTILL 1 DROP INTO BOTH EYES ONCE DAILY [facility] latanoprost 0.005 % ophthalmic drops 2021-08 00:00: 00 Yes INSTILL 1 DROP INTO BOTH EYES ONCE DAILY [facility] latanoprost 0.005 % ophthalmic drops 2021-08 00:00: 00 Yes INSTILL 1 DROP INTO BOTH EYES ONCE DAILY [facility] latanoprost 0.005 % ophthalmic drops 2021-08 00:00: 00 Yes INSTILL 1 DROP INTO BOTH EYES ONCE DAILY [facility] latanoprost 0.005 % ophthalmic drops 2021-08 00:00: 00 Yes INSTILL 1 DROP INTO BOTH EYES ONCE DAILY [facility] latanoprost 0.005 % ophthalmic drops 2021-08 00:00: 00 Yes INSTILL 1 DROP INTO BOTH EYES ONCE DAILY [facility] latanoprost 0.005 % ophthalmic drops 2021-08 00:00: 00 Yes INSTILL 1 DROP INTO BOTH EYES ONCE DAILY [facility] latanoprost 0.005 % ophthalmic drops 2021-08 00:00: 00 Yes INSTILL 1 DROP INTO BOTH EYES ONCE DAILY [facility] latanoprost 0.005 % ophthalmic drops 2021-08- 00:00: 00 Yes INSTILL 1 DROP INTO BOTH EYES ONCE DAILY [facility] latanoprost 0.005 % ophthalmic drops 2021-08 2 00:00: 00 Yes INSTILL 1 DROP INTO BOTH EYES ONCE DAILY [facility] latanoprost 0.005 % ophthalmic drops 2021-08 2 00:00: 00 Yes INSTILL 1 DROP INTO BOTH EYES ONCE DAILY [facility] latanoprost 0.005 % ophthalmic drops 2021-08 2 00:00: 00 Yes INSTILL 1 DROP INTO BOTH EYES ONCE DAILY [facility] latanoprost 0.005 % ophthalmic drops 2021-08 00:00: 00 Yes INSTILL 1 DROP INTO BOTH EYES ONCE DAILY [facility] latanoprost 0.005 % ophthalmic drops 2021-08 00:00: 00 Yes INSTILL 1 DROP INTO BOTH EYES ONCE DAILY [facility] latanoprost 0.005 % ophthalmic drops 2021-08 00:00: 00 Yes INSTILL 1 DROP INTO BOTH EYES ONCE DAILY [facility] latanoprost 0.005 % ophthalmic drops 2021-08 00:00: 00 Yes INSTILL 1 DROP INTO BOTH EYES ONCE DAILY [facility] latanoprost 0.005 % ophthalmic drops 2021-08 00:00: 00 Yes INSTILL 1 DROP INTO BOTH EYES ONCE DAILY [facility] latanoprost 0.005 % ophthalmic drops 2021-08 00:00: 00 Yes INSTILL 1 DROP INTO BOTH EYES ONCE DAILY [facility] latanoprost 0.005 % ophthalmic drops 2021-08 00:00: 00 Yes INSTILL 1 DROP INTO BOTH EYES ONCE DAILY [facility] latanoprost 0.005 % ophthalmic drops 2021-08 00:00: 00 Yes INSTILL 1 DROP INTO BOTH EYES ONCE DAILY [facility] latanoprost 0.005 % ophthalmic drops 2021-08 00:00: 00 Yes INSTILL 1 DROP INTO BOTH EYES ONCE DAILY [facility] latanoprost 0.005 % ophthalmic drops 2021-08 2 00:00: 00 Yes INSTILL 1 DROP INTO BOTH EYES ONCE DAILY [facility] latanoprost 0.005 % ophthalmic drops 2021-08 00:00: 00 Yes INSTILL 1 DROP INTO BOTH EYES ONCE DAILY [facility] latanoprost 0.005 % ophthalmic drops 2021-08 00:00: 00 Yes INSTILL 1 DROP INTO BOTH EYES ONCE DAILY [facility] latanoprost 0.005 % ophthalmic drops 2021-08 00:00: 00 Yes INSTILL 1 DROP INTO BOTH EYES ONCE DAILY [facility] latanoprost 0.005 % ophthalmic drops 2021-08 00:00: 00 Yes INSTILL 1 DROP INTO BOTH EYES ONCE DAILY [facility] latanoprost 0.005 % ophthalmic drops 2021-08 00:00: 00 Yes INSTILL 1 DROP INTO BOTH EYES ONCE DAILY [facility] latanoprost 0.005 % ophthalmic drops 2021-08 00:00: 00 Yes INSTILL 1 DROP INTO BOTH EYES ONCE DAILY [facility] latanoprost 0.005 % ophthalmic drops 2021-08 00:00: 00 Yes INSTILL 1 DROP INTO BOTH EYES ONCE DAILY [facility] latanoprost 0.005 % ophthalmic drops 2021-08 00:00: 00 Yes INSTILL 1 DROP INTO BOTH EYES ONCE DAILY [facility] latanoprost 0.005 % ophthalmic drops 2021-08 00:00: 00 Yes INSTILL 1 DROP INTO BOTH EYES ONCE DAILY [facility] latanoprost 0.005 % ophthalmic drops 2021-08 00:00: 00 Yes INSTILL 1 DROP INTO BOTH EYES ONCE DAILY [facility] latanoprost 0.005 % ophthalmic drops 2021-08 00:00: 00 Yes INSTILL 1 DROP INTO BOTH EYES ONCE DAILY [facility] latanoprost 0.005 % ophthalmic drops 2021-08 00:00: 00 Yes INSTILL 1 DROP INTO BOTH EYES ONCE DAILY [facility] latanoprost 0.005 % ophthalmic drops 2021-08 00:00: 00 Yes INSTILL 1 DROP INTO BOTH EYES ONCE DAILY [facility] latanoprost 0.005 % ophthalmic drops 2021-08 2 00:00: 00 Yes INSTILL 1 DROP INTO BOTH EYES ONCE DAILY [facility] latanoprost 0.005 % ophthalmic drops 2021-08 2 00:00: 00 Yes INSTILL 1 DROP INTO BOTH EYES ONCE DAILY [facility] latanoprost 0.005 % ophthalmic drops 2021-08 00:00: 00 Yes INSTILL 1 DROP INTO BOTH EYES ONCE DAILY [facility] latanoprost 0.005 % ophthalmic drops 2021-08 00:00: 00 Yes INSTILL 1 DROP INTO BOTH EYES ONCE DAILY [facility] latanoprost 0.005 % ophthalmic drops 2021-08 00:00: 00 Yes INSTILL 1 DROP INTO BOTH EYES ONCE DAILY [facility] latanoprost 0.005 % ophthalmic drops 2021-08 00:00: 00 Yes INSTILL 1 DROP INTO BOTH EYES ONCE DAILY [facility] latanoprost 0.005 % ophthalmic drops 2021-08 00:00: 00 Yes INSTILL 1 DROP INTO BOTH EYES ONCE DAILY [facility] latanoprost 0.005 % ophthalmic drops 2021-08 00:00: 00 Yes INSTILL 1 DROP INTO BOTH EYES ONCE DAILY [facility] latanoprost 0.005 % ophthalmic drops 2021-08 00:00: 00 Yes INSTILL 1 DROP INTO BOTH EYES ONCE DAILY [facility] latanoprost 0.005 % ophthalmic drops 2021-08 00:00: 00 Yes INSTILL 1 DROP INTO BOTH EYES ONCE DAILY [facility] latanoprost 0.005 % ophthalmic drops 2021-08 00:00: 00 Yes INSTILL 1 DROP INTO BOTH EYES ONCE DAILY [facility] latanoprost 0.005 % ophthalmic drops 2021-08 2 00:00: 00 Yes INSTILL 1 DROP INTO BOTH EYES ONCE DAILY [facility] latanoprost 0.005 % ophthalmic drops 2021-08 2 00:00: 00 Yes INSTILL 1 DROP INTO BOTH EYES ONCE DAILY [facility] latanoprost 0.005 % ophthalmic drops 2021-08 2 00:00: 00 Yes INSTILL 1 DROP INTO BOTH EYES ONCE DAILY [facility] latanoprost 0.005 % ophthalmic drops 2021-08 2 00:00: 00 Yes INSTILL 1 DROP INTO BOTH EYES ONCE DAILY [facility] latanoprost 0.005 % ophthalmic drops 2021-08 00:00: 00 Yes INSTILL 1 DROP INTO BOTH EYES ONCE DAILY [facility] latanoprost 0.005 % ophthalmic drops 2021-08 00:00: 00 Yes INSTILL 1 DROP INTO BOTH EYES ONCE DAILY [facility] latanoprost 0.005 % ophthalmic drops 2021-08 00:00: 00 Yes INSTILL 1 DROP INTO BOTH EYES ONCE DAILY [facility] latanoprost 0.005 % ophthalmic drops 2021-08 00:00: 00 Yes INSTILL 1 DROP INTO BOTH EYES ONCE DAILY [facility] latanoprost 0.005 % ophthalmic drops 2021-08 00:00: 00 Yes INSTILL 1 DROP INTO BOTH EYES ONCE DAILY [facility] latanoprost 0.005 % ophthalmic drops 2021-08 00:00: 00 Yes INSTILL 1 DROP INTO BOTH EYES ONCE DAILY [facility] latanoprost 0.005 % ophthalmic drops 2021-08 00:00: 00 Yes INSTILL 1 DROP INTO BOTH EYES ONCE DAILY [facility] latanoprost 0.005 % ophthalmic drops 2021-08 00:00: 00 Yes INSTILL 1 DROP INTO BOTH EYES ONCE DAILY [facility] latanoprost 0.005 % ophthalmic drops 2021-08 00:00: 00 Yes INSTILL 1 DROP INTO BOTH EYES ONCE DAILY [facility] latanoprost 0.005 % ophthalmic drops 2021-08 2 00:00: 00 Yes INSTILL 1 DROP INTO BOTH EYES ONCE DAILY [facility] latanoprost 0.005 % ophthalmic drops 2021-08 00:00: 00 Yes INSTILL 1 DROP INTO BOTH EYES ONCE DAILY [facility] 2021-08 00:00: 00 Yes INSTILL 1 DROP INTO BOTH EYES ONCE DA[facility] 2021-08 00:00: 00 Yes INSTILL 1 DROP INTO BOTH EYES ONCE DAILY [facility] ophthal[facility] drops 2021-08 00:00: 00 Yes INSTILL 1 DROP INTO BOTH EYES ONCE DAILY [facility] 0.005 % ophthalmic drops 2021-08 00:00: 00 Yes INSTILL 1 DROP INTO BOTH EYES ONCE DAILY [facility].005 % ophthalmic drops 2021-08 00:00: 00 Yes INSTILL 1 DROP INTO BOTH EYES ONCE DAILY [facility] 0.005 % ophthalmic drops 2021-08 00:00: 00 Yes INSTILL 1 DROP INTO BOTH EYES ONCE DAILY [facility] 0.005 % ophthalmic drops 2021-08 00:00: 00 Yes INSTILL 1 DROP INTO BOTH EYES ONCE DAILY [facility].005 % ophthalmic drops 2021-08 00:00: 00 Yes INSTILL 1 DROP INTO BOTH EYES ONCE DAILY [facility] NIFEdipine ER 60 mg tablet 2021-08 00:00: 00 10-07 00:00 :00 No [id number] 60mg Take 1 tablet by mouth in the morning and 1 tablet in the evening. [facility] ondansetron (ZOFRAN (PF)) injection 4 mg 2021-08 20:45: 00 07-19 20:00 :00 No 4mg 4 mg, Slow IV Push, ONCE, 1 dose, On 07/19/22 at 1445, GEOVANI [facility] morpHINE (4 mg/mL) injection 4 mg 2021-08 19:45: 00 07-19 20:00 :00 No 4mg 4 mg, Slow IV Push, ONCE, 1 dose, On 07/19/22 at 1345, STAT [facility] cephALEXin (KEFLEX) 500 mg capsule 2021-08 00:00: 00 Yes [id number] 500mg Take 1 capsule by mouth 4 (four) times daily. [facility] ciprofloxac in HCl 500 mg tablet 2021-08 00:00: 00 Yes [id number] 500mg Take 1 tablet by mouth in the morning and 1 tablet in the evening. [facility] cephALEXin (KEFLEX) 500 mg capsule 2021-08 00:00: 00 Yes [id number] 500mg Take 1 capsule by mouth 4 (four) times daily. [facility] ciprofloxac in HCl 500 mg tablet 2021-08 00:00: 00 Yes [id number] 500mg Take 1 tablet by mouth in the morning and 1 tablet in the evening. [facility] cephALEXin (KEFLEX) 500 mg capsule 2021-08 00:00: 00 Yes [id number] 500mg Take 1 capsule by mouth 4 (four) times daily. [facility] ciprofloxac in HCl 500 mg tablet 2021-08 00:00: 00 Yes [id number] 500mg Take 1 tablet by mouth in the morning and 1 tablet in the evening. [facility] cephALEXin (KEFLEX) 500 mg capsule 2021-08 00:00: 00 Yes [id number] 500mg Take 1 capsule by mouth 4 (four) times daily. [facility] ciprofloxac in HCl 500 mg tablet 2021-08 00:00: 00 Yes [id number] 500mg Take 1 tablet by mouth in the morning and 1 tablet in the evening. [facility] cephALEXin (KEFLEX) 500 mg capsule 2021-08 00:00: 00 Yes [id number] 500mg Take 1 capsule by mouth 4 (four) times daily. [facility] ciprofloxac in HCl 500 mg tablet 2021-08 00:00: 00 Yes [id number] 500mg Take 1 tablet by mouth in the morning and 1 tablet in the evening. [facility] cephALEXin (KEFLEX) 500 mg capsule 2021-08 00:00: 00 Yes [id number] 500mg Take 1 capsule by mouth 4 (four) times daily. [facility] ciprofloxac in HCl 500 mg tablet 2021-08 00:00: 00 Yes [id number] 500mg Take 1 tablet by mouth in the morning and 1 tablet in the evening. [facility] cephALEXin (KEFLEX) 500 mg capsule 2021-08 00:00: 00 Yes [id number] 500mg Take 1 capsule by mouth 4 (four) times daily. [facility] ciprofloxac in HCl 500 mg tablet 2021-08 00:00: 00 Yes [id number] 500mg Take 1 tablet by mouth in the morning and 1 tablet in the evening. [facility] cephALEXin (KEFLEX) 500 mg capsule 2021-08 00:00: 00 Yes [id number] 500mg Take 1 capsule by mouth 4 (four) times daily. [facility] ciprofloxac in HCl 500 mg tablet 2021-08 00:00: 00 Yes [id number] 500mg Take 1 tablet by mouth in the morning and 1 tablet in the evening. [facility] cephALEXin (KEFLEX) 500 mg capsule 2021-08 00:00: 00 Yes [id number] 500mg Take 1 capsule by mouth 4 (four) times daily. [facility] ciprofloxac in HCl 500 mg tablet 2021-08 00:00: 00 Yes [id number] 500mg Take 1 tablet by mouth in the morning and 1 tablet in the evening. [facility] cephALEXin (KEFLEX) 500 mg capsule 2021-08 00:00: 00 Yes [id number] 500mg Take 1 capsule by mouth 4 (four) times daily. [facility] ciprofloxac in HCl 500 mg tablet 2021-08 00:00: 00 Yes [id number] 500mg Take 1 tablet by mouth in the morning and 1 tablet in the evening. [facility] cephALEXin (KEFLEX) 500 mg capsule 2021-08 00:00: 00 Yes [id number] 500mg Take 1 capsule by mouth 4 (four) times daily. [facility] ciprofloxac in HCl 500 mg tablet 2021-08 00:00: 00 Yes [id number] 500mg Take 1 tablet by mouth in the morning and 1 tablet in the evening. [facility] cephALEXin (KEFLEX) 500 mg capsule 2021-08 00:00: 00 Yes [id number] 500mg Take 1 capsule by mouth 4 (four) times daily. [facility] ciprofloxac in HCl 500 mg tablet 2021-08 00:00: 00 Yes [id number] 500mg Take 1 tablet by mouth in the morning and 1 tablet in the evening. [facility] cephALEXin (KEFLEX) 500 mg capsule 2021-08 00:00: 00 Yes [id number] 500mg Take 1 capsule by mouth 4 (four) times daily. [facility] ciprofloxac in HCl 500 mg tablet 2021-08 00:00: 00 Yes [id number] 500mg Take 1 tablet by mouth in the morning and 1 tablet in the evening. [facility] cephALEXin (KEFLEX) 500 mg capsule 2021-08 00:00: 00 Yes [id number] 500mg Take 1 capsule by mouth 4 (four) times daily. [facility] ciprofloxac in HCl 500 mg tablet 2021-08 00:00: 00 Yes [id number] 500mg Take 1 tablet by mouth in the morning and 1 tablet in the evening. [facility] cephALEXin (KEFLEX) 500 mg capsule 2021-08 00:00: 00 Yes [id number] 500mg Take 1 capsule by mouth 4 (four) times daily. [facility] ciprofloxac in HCl 500 mg tablet 2021-08 00:00: 00 Yes [id number] 500mg Take 1 tablet by mouth in the morning and 1 tablet in the evening. [facility] cephALEXin (KEFLEX) 500 mg capsule 2021-08 00:00: 00 Yes [id number] 500mg Take 1 capsule by mouth 4 (four) times daily. [facility] ciprofloxac in HCl 500 mg tablet 2021-08- 00:00: 00 Yes [id number] 500mg Take 1 tablet by mouth in the morning and 1 tablet in the evening. [facility] cephALEXin (KEFLEX) 500 mg capsule 2021-08 00:00: 00 Yes [id number] 500mg Take 1 capsule by mouth 4 (four) times daily. [facility] ciprofloxac in HCl 500 mg tablet 2021-08 00:00: 00 Yes [id number] 500mg Take 1 tablet by mouth in the morning and 1 tablet in the evening. [facility] cephALEXin (KEFLEX) 500 mg capsule 2021-08- 00:00: 00 Yes [id number] 500mg Take 1 capsule by mouth 4 (four) times daily. [facility] cephALEXin (KEFLEX) 500 mg capsule 2021-08 00:00: 00 Yes [id number] 500mg Take 1 capsule by mouth 4 (four) times daily. [facility] cephALEXin (KEFLEX) 500 mg capsule 2021-08 00:00: 00 Yes [id number] 500mg Take 1 capsule by mouth 4 (four) times daily. [facility] cephALEXin (KEFLEX) 500 mg capsule 2021-08- 00:00: 00 Yes [id number] 500mg Take 1 capsule by mouth 4 (four) times daily. [facility] cephALEXin (KEFLEX) 500 mg capsule 2021-08- 00:00: 00 Yes [id number] 500mg Take 1 capsule by mouth 4 (four) times daily. [facility] cephALEXin (KEFLEX) 500 mg capsule 2021-08- 00:00: 00 Yes [id number] 500mg Take 1 capsule by mouth 4 (four) times daily. [facility] cephALEXin (KEFLEX) 500 mg capsule 2022-1 2-17 00:00: 00 Yes [id number] 500mg Take 1 capsule by mouth 4 (four) times daily. [facility]phAL[facility] (KEFLEX) 500 mg capsule 2021-08-17 00:00: 00 Yes [id number] 500mg Take 1 capsule by mouth 4 (four) times daily. [facility] 500 mg capsule 2021-08 2-17 00:00: 00 Yes [id number] 500mg Take 1 capsule by mouth 4 (four) times daily. [facility] cephALEXin (KEFLEX) 500 mg capsule 2021-08 2- 00:00: 00 Yes [id number] 500mg Take 1 capsule by mouth 4 (four) times daily. [facility] cephALEXin (KEFLEX) 500 mg capsule 2021-08- 00:00: 00 Yes [id number] 500mg Take 1 capsule by mouth 4 (four) times daily. [facility]phALEX[facility] (KEFLEX) 500 mg capsule 2021-08 2- 00:00: 00 Yes [id number] 500mg Take 1 capsule by mouth 4 (four) times daily. [facility] cephALEXin (KEFLEX) 500 mg capsule 2021-08 00:00: 00 Yes [id number] 500mg Take 1 capsule by mouth 4 (four) times daily. [facility] cephALEXin (KEFLEX) 500 mg capsule 2021-08 00:00: 00 Yes [id number] 500mg Take 1 capsule by mouth 4 (four) times daily. [facility] cephAL[facility] (KEFLEX) 500 mg capsule 2021-08 2-17 00:00: 00 Yes [id number] 500mg Take 1 capsule by mouth 4 (four) times daily. [facility] 500 mg capsule 2021-08 2-17 00:00: 00 Yes [id number] 500mg Take 1 capsule by mouth 4 (four) times daily. [facility] (KEFLEX) 500 mg capsule 2021- 2-17 00:00: 00 Yes [id number] 500mg Take 1 capsule by mouth 4 (four) times daily. [facility] ([facility]) 500 mg capsule 2021-08 2-17 00:00: 00 Yes [id number] 500mg Take 1 capsule by mouth 4 (four) times daily. [facility] cephALEXin (KEFLEX) 500 mg capsule 2021-08 2-17 00:00: 00 Yes [id number] 500mg Take 1 capsule by mouth 4 (four) times daily. [facility] cephALEXin (KEFLEX) 500 mg capsule 2021-08 2-17 00:00: 00 Yes [id number] 500mg Take 1 capsule by mouth 4 (four) times daily. [facility] cephAL[facility] (KEFLEX) 500 mg capsule 2021-08- 00:00: 00 Yes [id number] 500mg Take 1 capsule by mouth 4 (four) times daily. [facility] cephALEXin (KEFLEX) 500 mg capsule 2021-08- 00:00: 00 Yes [id number] 500mg Take 1 capsule by mouth 4 (four) times daily. [facility] cephALEX[facility] (KEFLEX) 500 mg capsule 2021-08 00:00: 00 Yes [id number] 500mg Take 1 capsule by mouth 4 (four) times daily. [facility] cephALEXin (KEFLEX) 500 mg capsule 2021-08 00:00: 00 Yes [id number] 500mg Take 1 capsule by mouth 4 (four) times daily. [facility] cephALEXin (KEFLEX) 500 mg capsule 2021-08 2-17 00:00: 00 Yes [id number] 500mg Take 1 capsule by mouth 4 (four) times daily. [facility] cephALEXin (KEFLEX) 500 mg capsule 2021-08 2-17 00:00: 00 Yes [id number] 500mg Take 1 capsule by mouth 4 (four) times daily. [facility] cephALEXin (KEFLEX) 500 mg capsule 2021-08 2-17 00:00: 00 Yes [id number] 500mg Take 1 capsule by mouth 4 (four) times daily. [facility] cephALEXin (KEFLEX) 500 mg capsule 2021- 2-17 00:00: 00 Yes [id number] 500mg Take 1 capsule by mouth 4 (four) times daily. [facility] cephALEXin (KEFLEX) 500 mg capsule 2021-08 2-17 00:00: 00 Yes [id number] 500mg Take 1 capsule by mouth 4 (four) times daily. [facility] cephALEXin (KEFLEX) 500 mg capsule 2021-08 2-17 00:00: 00 Yes [id number] 500mg Take 1 capsule by mouth 4 (four) times daily. [facility] cephALEXin (KEFLEX) 500 mg capsule 2021-08 00:00: 00 Yes [id number] 500mg Take 1 capsule by mouth 4 (four) times daily. [facility]) 500 mg capsule 2021-08- 00:00: 00 Yes [id number] 500mg Take 1 capsule by mouth 4 (four) times daily. [facility] cephALEXin (KEFLEX) 500 mg capsule 2021-08- 00:00: 00 Yes [id number] 500mg Take 1 capsule by mouth 4 (four) times daily. [facility] cephALEXin (KEFLEX) 500 mg capsule 2021-08 00:00: 00 Yes [id number] 500mg Take 1 capsule by mouth 4 (four) times daily. [facility] cephALEXin (KEFLEX) 500 mg capsule 2021-08 00:00: 00 Yes [id number] 500mg Take 1 capsule by mouth 4 (four) times daily. [facility] cephALEXin (KEFLEX) 500 mg capsule 2021-08 2-17 00:00: 00 Yes [id number] 500mg Take 1 capsule by mouth 4 (four) times daily. [facility] cephALEXin (KEFLEX) 500 mg capsule 2021-08-17 00:00: 00 Yes [id number] 500mg Take 1 capsule by mouth 4 (four) times daily. [facility] (KEFLEX) 500 mg capsule 2021-08 2-17 00:00: 00 Yes [id number] 500mg Take 1 capsule by mouth 4 (four) times daily. [facility] cephALEXin (KEFLEX) 500 mg capsule 2021-0817 00:00: 00 Yes [id number] 500mg Take 1 capsule by mouth 4 (four) times daily. [facility] cephALEXin (KEFLEX) 500 mg capsule 2021-08-17 00:00: 00 Yes [id number] 500mg Take 1 capsule by mouth 4 (four) times daily. [facility] cephALEXin (KEFLEX) 500 mg capsule 2021-08- 00:00: 00 Yes [id number] 500mg Take 1 capsule by mouth 4 (four) times daily. [facility] cephALEXin (KEFLEX) 500 mg capsule 2021-08 00:00: 00 Yes [id number] 500mg Take 1 capsule by mouth 4 (four) times daily. [facility] cephALEXin (KEFLEX) 500 mg capsule 2021-08 00:00: 00 Yes [id number] 500mg Take 1 capsule by mouth 4 (four) times daily. [facility] cephALEXin (KEFLEX) 500 mg capsule 2021-08 00:00: 00 Yes [id number] 500mg Take 1 capsule by mouth 4 (four) times daily. [facility] cephALEXin (KEFLEX) 500 mg capsule 2021-08 00:00: 00 Yes [id number] 500mg Take 1 capsule by mouth 4 (four) times daily. [facility] cephALEXin (KEFLEX) 500 mg capsule 2021-08 00:00: 00 Yes [id number] 500mg Take 1 capsule by mouth 4 (four) times daily. [facility] cephALEXin (KEFLEX) 500 mg capsule 2021-08-17 00:00: 00 Yes [id number] 500mg Take 1 capsule by mouth 4 (four) times daily. [facility]phALEXin (KEFLEX) 500 mg capsule 2021-08-17 00:00: 00 Yes [id number] 500mg Take 1 capsule by mouth 4 (four) times daily. [facility] cephALEXin (KEFLEX) 500 mg capsule 2021-08 04-17 00:00: 00 Yes [id number] 500mg Take 1 capsule by mouth 4 (four) times daily. [facility] cephALEXin (KEFLEX) 500 mg capsule 2021-08 2-17 00:00: 00 Yes [id number] 500mg Take 1 capsule by mouth 4 (four) times daily. [facility] cephALEXin (KEFLEX) 500 mg capsule 2021-08 2-17 00:00: 00 Yes [id number] 500mg Take 1 capsule by mouth 4 (four) times daily. [facility] cephALEXin (KEFLEX) 500 mg capsule 2021-08 2-17 00:00: 00 Yes [id number] 500mg Take 1 capsule by mouth 4 (four) times daily. [facility] cephALEXin (KEFLEX) 500 mg capsule 2021-08-17 00:00: 00 Yes [id number] 500mg Take 1 capsule by mouth 4 (four) times daily. [facility] cephALEXin (KEFLEX) 500 mg capsule 2021- 2-17 00:00: 00 Yes [id number] 500mg Take 1 capsule by mouth 4 (four) times daily. [facility] cephALEXin (KEFLEX) 500 mg capsule 2021-08 2-17 00:00: 00 Yes [id number] 500mg Take 1 capsule by mouth 4 (four) times daily. [facility] cephALEXin (KEFLEX) 500 mg capsule 2021-08 2-17 00:00: 00 Yes [id number] 500mg Take 1 capsule by mouth 4 (four) times daily. [facility] cephALEXin (KEFLEX) 500 mg capsule 2021- 2-17 00:00: 00 Yes [id number] 500mg Take 1 capsule by mouth 4 (four) times daily. [facility] cephALEXin (KEFLEX) 500 mg capsule 2021- 2-17 00:00: 00 Yes [id number] 500mg Take 1 capsule by mouth 4 (four) times daily. [facility] cephALEXin (KEFLEX) 500 mg capsule 2021- 2-17 00:00: 00 Yes [id number] 500mg Take 1 capsule by mouth 4 (four) times daily. [facility] cephALEXin (KEFLEX) 500 mg capsule 2021- 2-17 00:00: 00 Yes [id number] 500mg Take 1 capsule by mouth 4 (four) times daily. [facility] cephALEXin (KEFLEX) 500 mg capsule 2021-08 2-17 00:00: 00 Yes [id number] 500mg Take 1 capsule by mouth 4 (four) times daily. [facility] cephALEXin (KEFLEX) 500 mg capsule 2021-08 2-17 00:00: 00 Yes [id number] 500mg Take 1 capsule by mouth 4 (four) times daily. [facility] cephALEXin (KEFLEX) 500 mg capsule 2021-08 2-17 00:00: 00 Yes [id number] 500mg Take 1 capsule by mouth 4 (four) times daily. [facility] cephALEXin (KEFLEX) 500 mg capsule 2021-08 2- 00:00: 00 Yes [id number] 500mg Take 1 capsule by mouth 4 (four) times daily. [facility] cephALEXin (KEFLEX) 500 mg capsule 2021-08 2- 00:00: 00 Yes [id number] 500mg Take 1 capsule by mouth 4 (four) times daily. [facility] cephALEXin (KEFLEX) 500 mg capsule 2021-08 2-17 00:00: 00 Yes [id number] 500mg Take 1 capsule by mouth 4 (four) times daily. [facility] cephALEXin (KEFLEX) 500 mg capsule 2021-08 2- 00:00: 00 Yes [id number] 500mg Take 1 capsule by mouth 4 (four) times daily. [facility] cephALEXin (KEFLEX) 500 mg capsule 2021-08 2-17 00:00: 00 Yes [id number] 500mg Take 1 capsule by mouth 4 (four) times daily. [facility] cephALEXin (KEFLEX) 500 mg capsule 2021-08 2-17 00:00: 00 Yes [id number] 500mg Take 1 capsule by mouth 4 (four) times daily. [facility] cephALEXin (KEFLEX) 500 mg capsule 2021- 2-17 00:00: 00 Yes [id number] 500mg Take 1 capsule by mouth 4 (four) times daily. [facility]phALEXin (KEFLEX) 500 mg capsule 2021-08 2-17 00:00: 00 Yes [id number] 500mg Take 1 capsule by mouth 4 (four) times daily. [facility] cephALEXin (KEFLEX) 500 mg capsule 2021-08 2-17 00:00: 00 Yes [id number] 500mg Take 1 capsule by mouth 4 (four) times daily. [facility] cephALEXin (KEFLEX) 500 mg capsule 2021-08 2-17 00:00: 00 Yes [id number] 500mg Take 1 capsule by mouth 4 (four) times daily. [facility]phALEXin (KEFLEX) 500 mg capsule 2021-08- 00:00: 00 Yes [id number] 500mg Take 1 capsule by mouth 4 (four) times daily. [facility] cephALEXin (KEFLEX) 500 mg capsule 2021-08- 00:00: 00 Yes [id number] 500mg Take 1 capsule by mouth 4 (four) times daily. [facility] cephALEXin (KEFLEX) 500 mg capsule 2021-08- 00:00: 00 Yes [id number] 500mg Take 1 capsule by mouth 4 (four) times daily. [facility] cephALEXin (KEFLEX) 500 mg capsule 2021-08 00:00: 00 Yes [id number] 500mg Take 1 capsule by mouth 4 (four) times daily. [facility] cephALEXin (KEFLEX) 500 mg capsule 2021-08- 00:00: 00 Yes [id number] 500mg Take 1 capsule by mouth 4 (four) times daily. [facility] cephALEXin (KEFLEX) 500 mg capsule 2021-08 2-17 00:00: 00 Yes [id number] 500mg Take 1 capsule by mouth 4 (four) times daily. [facility] cephALEXin (KEFLEX) 500 mg capsule 2021-08 2-17 00:00: 00 Yes [id number] 500mg Take 1 capsule by mouth 4 (four) times daily. [facility] cephALEXin (KEFLEX) 500 mg capsule 2021- 2-17 00:00: 00 Yes [id number] 500mg Take 1 capsule by mouth 4 (four) times daily. [facility] cephALEXin (KEFLEX) 500 mg capsule 2021-08 2-17 00:00: 00 Yes [id number] 500mg Take 1 capsule by mouth 4 (four) times daily. [facility] cephALEXin (KEFLEX) 500 mg capsule 2021-08 2-17 00:00: 00 Yes [id number] 500mg Take 1 capsule by mouth 4 (four) times daily. [facility] cephALEXin (KEFLEX) 500 mg capsule 2021-08 2-17 00:00: 00 Yes [id number] 500mg Take 1 capsule by mouth 4 (four) times daily. [facility] cephALEXin (KEFLEX) 500 mg capsule 2021-08- 00:00: 00 Yes [id number] 500mg Take 1 capsule by mouth 4 (four) times daily. [facility] cephALEXin (KEFLEX) 500 mg capsule 2021-08- 00:00: 00 Yes [id number] 500mg Take 1 capsule by mouth 4 (four) times daily. [facility] cephALEXin (KEFLEX) 500 mg capsule 2021-08 2- 00:00: 00 Yes [id number] 500mg Take 1 capsule by mouth 4 (four) times daily. [facility] cephALEXin (KEFLEX) 500 mg capsule 2021-08 00:00: 00 Yes [id number] 500mg Take 1 capsule by mouth 4 (four) times daily. [facility] cephALEXin (KEFLEX) 500 mg capsule 2021-08 2-17 00:00: 00 Yes [id number] 500mg Take 1 capsule by mouth 4 (four) times daily. [facility] cephALEXin (KEFLEX) 500 mg capsule 2021- 2-17 00:00: 00 Yes [id number] 500mg Take 1 capsule by mouth 4 (four) times daily. [facility] cephALEXin (KEFLEX) 500 mg capsule 2021- 2-17 00:00: 00 Yes [id number] 500mg Take 1 capsule by mouth 4 (four) times daily. [facility] cephALEXin (KEFLEX) 500 mg capsule 2021-08 2-17 00:00: 00 Yes [id number] 500mg Take 1 capsule by mouth 4 (four) times daily. [facility] cephALEXin (KEFLEX) 500 mg capsule 2021-08- 00:00: 00 Yes [id number] 500mg Take 1 capsule by mouth 4 (four) times daily. [facility] cephALEXin (KEFLEX) 500 mg capsule 2021-08- 00:00: 00 Yes [id number] 500mg Take 1 capsule by mouth 4 (four) times daily. [facility] cephALEXin (KEFLEX) 500 mg capsule 2021-08 00:00: 00 Yes [id number] 500mg Take 1 capsule by mouth 4 (four) times daily. [facility] cephALEXin (KEFLEX) 500 mg capsule 2021-08 00:00: 00 Yes [id number] 500mg Take 1 capsule by mouth 4 (four) times daily. [facility] cephALEXin (KEFLEX) 500 mg capsule 2021-08 00:00: 00 Yes [id number] 500mg Take 1 capsule by mouth 4 (four) times daily. [facility] cephALEXin (KEFLEX) 500 mg capsule 2021-08 00:00: 00 Yes [id number] 500mg Take 1 capsule by mouth 4 (four) times daily. [facility] cephALEXin (KEFLEX) 500 mg capsule 2021-08 00:00: 00 Yes [id number] 500mg Take 1 capsule by mouth 4 (four) times daily. [facility] cephALEXin (KEFLEX) 500 mg capsule 2021-08- 00:00: 00 Yes [id number] 500mg Take 1 capsule by mouth 4 (four) times daily. [facility] cephALEXin (KEFLEX) 500 mg capsule 2021-08- 00:00: 00 Yes [id number] 500mg Take 1 capsule by mouth 4 (four) times daily. [facility]phALEXin (KEFLEX) 500 mg capsule 2021-08- 00:00: 00 Yes [id number] 500mg Take 1 capsule by mouth 4 (four) times daily. [facility] cephALEXin (KEFLEX) 500 mg capsule 2021-08 2-17 00:00: 00 Yes [id number] 500mg Take 1 capsule by mouth 4 (four) times daily. [facility] cephALEXin (KEFLEX) 500 mg capsule 2021-08-17 00:00: 00 Yes [id number] 500mg Take 1 capsule by mouth 4 (four) times daily. [facility] cephALEXin (KEFLEX) 500 mg capsule 2021-08- 00:00: 00 Yes [id number] 500mg Take 1 capsule by mouth 4 (four) times daily. [facility] cephALEXin (KEFLEX) 500 mg capsule 2021-08 00:00: 00 Yes [id number] 500mg Take 1 capsule by mouth 4 (four) times daily. [facility] cephALEXin (KEFLEX) 500 mg capsule 2021-08 00:00: 00 Yes [id number] 500mg Take 1 capsule by mouth 4 (four) times daily. [facility] cephALEXin (KEFLEX) 500 mg capsule 2021-08 00:00: 00 Yes [id number] 500mg Take 1 capsule by mouth 4 (four) times daily. [facility] cephALEXin (KEFLEX) 500 mg capsule 2021-08 00:00: 00 Yes [id number] 500mg Take 1 capsule by mouth 4 (four) times daily. [facility] cephALEXin (KEFLEX) 500 mg capsule 2021-08- 00:00: 00 Yes [id number] 500mg Take 1 capsule by mouth 4 (four) times daily. [facility] cephALEXin (KEFLEX) 500 mg capsule 2021-08 2-17 00:00: 00 Yes [id number] 500mg Take 1 capsule by mouth 4 (four) times daily. [facility] cephALEXin (KEFLEX) 500 mg capsule 2021-08 2-17 00:00: 00 Yes [id number] 500mg Take 1 capsule by mouth 4 (four) times daily. [facility] cephALEXin (KEFLEX) 500 mg capsule 2021- 2-17 00:00: 00 Yes [id number] 500mg Take 1 capsule by mouth 4 (four) times daily. [facility] cephALEXin (KEFLEX) 500 mg capsule 2021-08 2-17 00:00: 00 Yes [id number] 500mg Take 1 capsule by mouth 4 (four) times daily. [facility] cephALEXin (KEFLEX) 500 mg capsule 2021-08 2-17 00:00: 00 Yes [id number] 500mg Take 1 capsule by mouth 4 (four) times daily. [facility] cephALEXin (KEFLEX) 500 mg capsule 2021-08 2-17 00:00: 00 Yes [id number] 500mg Take 1 capsule by mouth 4 (four) times daily. [facility] cephALEXin (KEFLEX) 500 mg capsule 2021-08- 00:00: 00 Yes [id number] 500mg Take 1 capsule by mouth 4 (four) times daily. [facility] cephALEXin (KEFLEX) 500 mg capsule 2021-08 2-17 00:00: 00 Yes [id number] 500mg Take 1 capsule by mouth 4 (four) times daily. [facility] cephALEXin (KEFLEX) 500 mg capsule 2021-08 2-17 00:00: 00 Yes [id number] 500mg Take 1 capsule by mouth 4 (four) times daily. [facility] cephALEXin (KEFLEX) 500 mg capsule 2021-08 2-17 00:00: 00 Yes [id number] 500mg Take 1 capsule by mouth 4 (four) times daily. [facility] cephALEXin (KEFLEX) 500 mg capsule 2021-08 2-17 00:00: 00 Yes [id number] 500mg Take 1 capsule by mouth 4 (four) times daily. [facility] cephALEXin (KEFLEX) 500 mg capsule 2021- 2-17 00:00: 00 Yes [id number] 500mg Take 1 capsule by mouth 4 (four) times daily. [facility] cephALEXin (KEFLEX) 500 mg capsule 2021- 2-17 00:00: 00 Yes [id number] 500mg Take 1 capsule by mouth 4 (four) times daily. [facility] cephALEXin (KEFLEX) 500 mg capsule 2021-08 2-17 00:00: 00 Yes [id number] 500mg Take 1 capsule by mouth 4 (four) times daily. [facility]phAL[facility] (KEFLEX) 500 mg capsule 2021-08-17 00:00: 00 Yes [id number] 500mg Take 1 capsule by mouth 4 (four) times daily. [facility] cephALEXin (KEFLEX) 500 mg capsule 2021-08 2-17 00:00: 00 Yes [id number] 500mg Take 1 capsule by mouth 4 (four) times daily. [facility] cephALEXin (KEFLEX) 500 mg capsule 2021-08-17 00:00: 00 Yes [id number] 500mg Take 1 capsule by mouth 4 (four) times daily. [facility] cephALEXin (KEFLEX) 500 mg capsule 2021-08- 00:00: 00 Yes [id number] 500mg Take 1 capsule by mouth 4 (four) times daily. [facility] cephALEXin (KEFLEX) 500 mg capsule 2021-08- 00:00: 00 Yes [id number] 500mg Take 1 capsule by mouth 4 (four) times daily. [facility] cephALEXin (KEFLEX) 500 mg capsule 2021-08 00:00: 00 Yes [id number] 500mg Take 1 capsule by mouth 4 (four) times daily. [facility] cephALEXin (KEFLEX) 500 mg capsule 2021-08 2- 00:00: 00 Yes [id number] 500mg Take 1 capsule by mouth 4 (four) times daily. [facility] cephALEXin (KEFLEX) 500 mg capsule 2021-08 2-17 00:00: 00 Yes [id number] 500mg Take 1 capsule by mouth 4 (four) times daily. [facility] cephALEXin (KEFLEX) 500 mg capsule 2021- 2-17 00:00: 00 Yes [id number] 500mg Take 1 capsule by mouth 4 (four) times daily. [facility] cephALEXin (KEFLEX) 500 mg capsule 2021- 2-17 00:00: 00 Yes [id number] 500mg Take 1 capsule by mouth 4 (four) times daily. [facility] cephALEXin (KEFLEX) 500 mg capsule 2021-08 00:00: 00 07-09 00:00 :00 No [id number] 500mg Take 1 capsule by mouth 4 (four) times daily. [facility] cephALEXin (KEFLEX) 500 mg capsule 2021-08 00:00: 00 07-09 00:00 :00 No [id number] 500mg Take 1 capsule by mouth 4 (four) times daily. [facility] ciprofloxac in HCl 500 mg tablet 2021-08 00:00: 00 09-02 00:00 :00 No [id number] 500mg Take 1 tablet by mouth in the morning and 1 tablet in the evening. [facility] furosemide 80 mg tablet 2021-08 00:00: 00 Yes 80mg Take 1 tablet by mouth every 48 (forty-eig ht) hours. [facility] spironolact one 25 mg tablet 2021-08 00:00: 00 Yes 25mg Take 1 tablet by mouth every 48 (forty-eig ht) hours. [facility] furosemide 80 mg tablet 2021-08 00:00: 00 Yes 80mg Take 1 tablet by mouth every 48 (forty-eig ht) hours. [facility] spironolact one 25 mg tablet 2021-08 00:00: 00 Yes 25mg Take 1 tablet by mouth every 48 (forty-eig ht) hours. [facility] furosemide 80 mg tablet 2021-08 00:00: 00 Yes 80mg Take 1 tablet by mouth every 48 (forty-eig ht) hours. [facility] spironolact one 25 mg tablet 2021-08 00:00: 00 Yes 25mg Take 1 tablet by mouth every 48 (forty-eig ht) hours. [facility] furosemide 80 mg tablet 2021-08 00:00: 00 Yes 80mg Take 1 tablet by mouth every 48 (forty-eig ht) hours. [facility] spironolact one 25 mg tablet 2021-08 00:00: 00 Yes 25mg Take 1 tablet by mouth every 48 (forty-eig ht) hours. [facility] furosemide 80 mg tablet 2021-08 00:00: 00 Yes 80mg Take 1 tablet by mouth every 48 (forty-eig ht) hours. [facility] spironolact one 25 mg tablet 2021-08 00:00: 00 Yes 25mg Take 1 tablet by mouth every 48 (forty-eig ht) hours. [facility] furosemide 80 mg tablet 2021-08 00:00: 00 Yes 80mg Take 1 tablet by mouth every 48 (forty-eig ht) hours. [facility] spironolact one 25 mg tablet 2021-08 00:00: 00 Yes 25mg Take 1 tablet by mouth every 48 (forty-eig ht) hours. [facility] furosemide 80 mg tablet 2021-08 00:00: 00 Yes 80mg Take 1 tablet by mouth every 48 (forty-eig ht) hours. [facility] spironolact one 25 mg tablet 2021-08 00:00: 00 Yes 25mg Take 1 tablet by mouth every 48 (forty-eig ht) hours. [facility] furosemide 80 mg tablet 2021-08 00:00: 00 Yes 80mg Take 1 tablet by mouth every 48 (forty-eig ht) hours. [facility] spironolact one 25 mg tablet 2021-08 00:00: 00 Yes 25mg Take 1 tablet by mouth every 48 (forty-eig ht) hours. [facility] furosemide 80 mg tablet 2021-08 00:00: 00 Yes 80mg Take 1 tablet by mouth every 48 (forty-eig ht) hours. [facility] spironolact one 25 mg tablet 2021-08 00:00: 00 Yes 25mg Take 1 tablet by mouth every 48 (forty-eig ht) hours. [facility] furosemide 80 mg tablet 2021-08 00:00: 00 Yes 80mg Take 1 tablet by mouth every 48 (forty-eig ht) hours. [facility] spironolact one 25 mg tablet 2021-08 00:00: 00 Yes 25mg Take 1 tablet by mouth every 48 (forty-eig ht) hours. [facility] furosemide 80 mg tablet 2021-08 00:00: 00 Yes 80mg Take 1 tablet by mouth every 48 (forty-eig ht) hours. [facility] spironolact one 25 mg tablet 2021-08 00:00: 00 Yes 25mg Take 1 tablet by mouth every 48 (forty-eig ht) hours. [facility] furosemide 80 mg tablet 2021-08 00:00: 00 Yes 80mg Take 1 tablet by mouth every 48 (forty-eig ht) hours. [facility] spironolact one 25 mg tablet 2021-08 00:00: 00 Yes 25mg Take 1 tablet by mouth every 48 (forty-eig ht) hours. [facility] furosemide 80 mg tablet 2021-08 00:00: 00 Yes 80mg Take 1 tablet by mouth every 48 (forty-eig ht) hours. [facility] spironolact one 25 mg tablet 2021-08 00:00: 00 Yes 25mg Take 1 tablet by mouth every 48 (forty-eig ht) hours. [facility] furosemide 80 mg tablet 2021-08 00:00: 00 Yes 80mg Take 1 tablet by mouth every 48 (forty-eig ht) hours. [facility] spironolact one 25 mg tablet 2021-08 00:00: 00 Yes 25mg Take 1 tablet by mouth every 48 (forty-eig ht) hours. [facility] furosemide 80 mg tablet 2021-08 00:00: 00 Yes 80mg Take 1 tablet by mouth every 48 (forty-eig ht) hours. [facility] spironolact one 25 mg tablet 2021-08 00:00: 00 Yes 25mg Take 1 tablet by mouth every 48 (forty-eig ht) hours. [facility] furosemide 80 mg tablet 2021-08 00:00: 00 Yes 80mg Take 1 tablet by mouth every 48 (forty-eig ht) hours. [facility] spironolact one 25 mg tablet 2021-08 00:00: 00 Yes 25mg Take 1 tablet by mouth every 48 (forty-eig ht) hours. [facility] furosemide 80 mg tablet 2021-08 00:00: 00 Yes 80mg Take 1 tablet by mouth every 48 (forty-eig ht) hours. [facility] spironolact one 25 mg tablet 2021-08 00:00: 00 Yes 25mg Take 1 tablet by mouth every 48 (forty-eig ht) hours. [facility] furosemide 80 mg tablet 2021-08 00:00: 00 Yes 80mg Take 1 tablet by mouth every 48 (forty-eig ht) hours. [facility] spironolact one 25 mg tablet 2021-08 00:00: 00 Yes 25mg Take 1 tablet by mouth every 48 (forty-eig ht) hours. [facility] furosemide 80 mg tablet 2021-08 00:00: 00 Yes 80mg Take 1 tablet by mouth every 48 (forty-eig ht) hours. [facility] spironolact one 25 mg tablet 2021-08 00:00: 00 Yes 25mg Take 1 tablet by mouth every 48 (forty-eig ht) hours. [facility] furosemide 80 mg tablet 2021-08 00:00: 00 Yes 80mg Take 1 tablet by mouth every 48 (forty-eig ht) hours. [facility] spironolact one 25 mg tablet 2021-08 00:00: 00 Yes 25mg Take 1 tablet by mouth every 48 (forty-eig ht) hours. [facility] furosemide 80 mg tablet 2021-08 00:00: 00 Yes 80mg Take 1 tablet by mouth every 48 (forty-eig ht) hours. [facility] spironolact one 25 mg tablet 2021-08 00:00: 00 Yes 25mg Take 1 tablet by mouth every 48 (forty-eig ht) hours. [facility] furosemide 80 mg tablet 2021-08 00:00: 00 Yes 80mg Take 1 tablet by mouth every 48 (forty-eig ht) hours. [facility] spironolact one 25 mg tablet 2021-08 00:00: 00 Yes 25mg Take 1 tablet by mouth every 48 (forty-eig ht) hours. [facility] furosemide 80 mg tablet 2021-08 00:00: 00 Yes 80mg Take 1 tablet by mouth every 48 (forty-eig ht) hours. [facility] spironolact one 25 mg tablet 2021-08 00:00: 00 Yes 25mg Take 1 tablet by mouth every 48 (forty-eig ht) hours. [facility] furosemide 80 mg tablet 2021-08 00:00: 00 Yes 80mg Take 1 tablet by mouth every 48 (forty-eig ht) hours. [facility] spironolact one 25 mg tablet 2021-08 00:00: 00 Yes 25mg Take 1 tablet by mouth every 48 (forty-eig ht) hours. [facility] furosemide 80 mg tablet 2021-08 00:00: 00 Yes 80mg Take 1 tablet by mouth every 48 (forty-eig ht) hours. [facility] spironolact one 25 mg tablet 2021-08 00:00: 00 Yes 25mg Take 1 tablet by mouth every 48 (forty-eig ht) hours. [facility] furosemide 80 mg tablet 2021-08 00:00: 00 Yes 80mg Take 1 tablet by mouth every 48 (forty-eig ht) hours. [facility] spironolact one 25 mg tablet 2021-08 00:00: 00 Yes 25mg Take 1 tablet by mouth every 48 (forty-eig ht) hours. [facility] furosemide 80 mg tablet 2021-08 00:00: 00 Yes 80mg Take 1 tablet by mouth every 48 (forty-eig ht) hours. [facility] spironolact one 25 mg tablet 2021-08 00:00: 00 Yes 25mg Take 1 tablet by mouth every 48 (forty-eig ht) hours. [facility] furosemide 80 mg tablet 2021-08 00:00: 00 Yes 80mg Take 1 tablet by mouth every 48 (forty-eig ht) hours. [facility] spironolact one 25 mg tablet 2021-08 00:00: 00 Yes 25mg Take 1 tablet by mouth every 48 (forty-eig ht) hours. [facility] furosemide 80 mg tablet 2021-08 00:00: 00 Yes 80mg Take 1 tablet by mouth every 48 (forty-eig ht) hours. [facility] spironolact one 25 mg tablet 2021-08 00:00: 00 Yes 25mg Take 1 tablet by mouth every 48 (forty-eig ht) hours. [facility] furosemide 80 mg tablet 2021-08 00:00: 00 Yes 80mg Take 1 tablet by mouth every 48 (forty-eig ht) hours. [facility] spironolact one 25 mg tablet 2021-08 00:00: 00 Yes 25mg Take 1 tablet by mouth every 48 (forty-eig ht) hours. [facility] furosemide 80 mg tablet 2021-08 00:00: 00 Yes 80mg Take 1 tablet by mouth every 48 (forty-eig ht) hours. [facility] spironolact one 25 mg tablet 2021-08 00:00: 00 Yes 25mg Take 1 tablet by mouth every 48 (forty-eig ht) hours. [facility] furosemide 80 mg tablet 2021-08 00:00: 00 Yes 80mg Take 1 tablet by mouth every 48 (forty-eig ht) hours. [facility] spironolact one 25 mg tablet 2021-08 00:00: 00 Yes 25mg Take 1 tablet by mouth every 48 (forty-eig ht) hours. [facility] furosemide 80 mg tablet 2021-08 00:00: 00 Yes 80mg Take 1 tablet by mouth every 48 (forty-eig ht) hours. [facility] spironolact one 25 mg tablet 2021-08 00:00: 00 Yes 25mg Take 1 tablet by mouth every 48 (forty-eig ht) hours. [facility] furosemide 80 mg tablet 2021-08 00:00: 00 Yes 80mg Take 1 tablet by mouth every 48 (forty-eig ht) hours. [facility] spironolact one 25 mg tablet 2021-08 00:00: 00 Yes 25mg Take 1 tablet by mouth every 48 (forty-eig ht) hours. [facility] furosemide 80 mg tablet 2021-08 00:00: 00 Yes 80mg Take 1 tablet by mouth every 48 (forty-eig ht) hours. [facility] spironolact one 25 mg tablet 2021-08 00:00: 00 Yes 25mg Take 1 tablet by mouth every 48 (forty-eig ht) hours. [facility] furosemide 80 mg tablet 2021-08 00:00: 00 Yes 80mg Take 1 tablet by mouth every 48 (forty-eig ht) hours. [facility] spironolact one 25 mg tablet 2021-08 00:00: 00 Yes 25mg Take 1 tablet by mouth every 48 (forty-eig ht) hours. [facility] furosemide 80 mg tablet 2021-08 00:00: 00 Yes 80mg Take 1 tablet by mouth every 48 (forty-eig ht) hours. [facility] spironolact one 25 mg tablet 2021-08 00:00: 00 Yes 25mg Take 1 tablet by mouth every 48 (forty-eig ht) hours. [facility] furosemide 80 mg tablet 2021-08 00:00: 00 Yes 80mg Take 1 tablet by mouth every 48 (forty-eig ht) hours. [facility] spironolact one 25 mg tablet 2021-08 00:00: 00 Yes 25mg Take 1 tablet by mouth every 48 (forty-eig ht) hours. [facility] furosemide 80 mg tablet 2021-08 00:00: 00 Yes 80mg Take 1 tablet by mouth every 48 (forty-eig ht) hours. [facility] spironolact one 25 mg tablet 2021-08 00:00: 00 Yes 25mg Take 1 tablet by mouth every 48 (forty-eig ht) hours. [facility] furosemide 80 mg tablet 2021-08 00:00: 00 Yes 80mg Take 1 tablet by mouth every 48 (forty-eig ht) hours. [facility] spironolact one 25 mg tablet 2021-08 00:00: 00 Yes 25mg Take 1 tablet by mouth every 48 (forty-eig ht) hours. [facility] furosemide 80 mg tablet 2021-08 00:00: 00 Yes 80mg Take 1 tablet by mouth every 48 (forty-eig ht) hours. [facility] spironolact one 25 mg tablet 2021-08 00:00: 00 Yes 25mg Take 1 tablet by mouth every 48 (forty-eig ht) hours. [facility] furosemide 80 mg tablet 2021-08 00:00: 00 Yes 80mg Take 1 tablet by mouth every 48 (forty-eig ht) hours. [facility] spironolact one 25 mg tablet 2021-08 00:00: 00 Yes 25mg Take 1 tablet by mouth every 48 (forty-eig ht) hours. [facility] furosemide 80 mg tablet 2021-08 00:00: 00 Yes 80mg Take 1 tablet by mouth every 48 (forty-eig ht) hours. [facility] spironolact one 25 mg tablet 2021-08 00:00: 00 Yes 25mg Take 1 tablet by mouth every 48 (forty-eig ht) hours. [facility] furosemide 80 mg tablet 2021-08 00:00: 00 Yes 80mg Take 1 tablet by mouth every 48 (forty-eig ht) hours. [facility] spironolact one 25 mg tablet 2021-08 00:00: 00 Yes 25mg Take 1 tablet by mouth every 48 (forty-eig ht) hours. [facility] furosemide 80 mg tablet 2021-08 00:00: 00 Yes 80mg Take 1 tablet by mouth every 48 (forty-eig ht) hours. [facility] spironolact one 25 mg tablet 2021-08 00:00: 00 Yes 25mg Take 1 tablet by mouth every 48 (forty-eig ht) hours. [facility] furosemide 80 mg tablet 2021-08 00:00: 00 Yes 80mg Take 1 tablet by mouth every 48 (forty-eig ht) hours. [facility] spironolact one 25 mg tablet 2021-08 00:00: 00 Yes 25mg Take 1 tablet by mouth every 48 (forty-eig ht) hours. [facility] furosemide 80 mg tablet 2021-08 00:00: 00 Yes 80mg Take 1 tablet by mouth every 48 (forty-eig ht) hours. [facility] spironolact one 25 mg tablet 2021-08 00:00: 00 Yes 25mg Take 1 tablet by mouth every 48 (forty-eig ht) hours. [facility] furosemide 80 mg tablet 2021-08 00:00: 00 Yes 80mg Take 1 tablet by mouth every 48 (forty-eig ht) hours. [facility] spironolact one 25 mg tablet 2021-08 00:00: 00 Yes 25mg Take 1 tablet by mouth every 48 (forty-eig ht) hours. [facility] furosemide 80 mg tablet 2021-08 00:00: 00 Yes 80mg Take 1 tablet by mouth every 48 (forty-eig ht) hours. [facility] spironolact one 25 mg tablet 2021-08 00:00: 00 Yes 25mg Take 1 tablet by mouth every 48 (forty-eig ht) hours. [facility] furosemide 80 mg tablet 2021-08 00:00: 00 Yes 80mg Take 1 tablet by mouth every 48 (forty-eig ht) hours. [facility] spironolact one 25 mg tablet 2021-08 00:00: 00 Yes 25mg Take 1 tablet by mouth every 48 (forty-eig ht) hours. [facility] furosemide 80 mg tablet 2021-08 00:00: 00 Yes 80mg Take 1 tablet by mouth every 48 (forty-eig ht) hours. [facility] spironolact one 25 mg tablet 2021-08 00:00: 00 Yes 25mg Take 1 tablet by mouth every 48 (forty-eig ht) hours. [facility] furosemide 80 mg tablet 2021-08 00:00: 00 Yes 80mg Take 1 tablet by mouth every 48 (forty-eig ht) hours. [facility] spironolact one 25 mg tablet 2021-08 00:00: 00 Yes 25mg Take 1 tablet by mouth every 48 (forty-eig ht) hours. [facility] furosemide 80 mg tablet 2021-08 00:00: 00 Yes 80mg Take 1 tablet by mouth every 48 (forty-eig ht) hours. [facility] spironolact one 25 mg tablet 2021-08 00:00: 00 Yes 25mg Take 1 tablet by mouth every 48 (forty-eig ht) hours. [facility] furosemide 80 mg tablet 2021-08 00:00: 00 Yes 80mg Take 1 tablet by mouth every 48 (forty-eig ht) hours. [facility] spironolact one 25 mg tablet 2021-08 00:00: 00 Yes 25mg Take 1 tablet by mouth every 48 (forty-eig ht) hours. [facility] furosemide 80 mg tablet 2021-08 00:00: 00 Yes 80mg Take 1 tablet by mouth every 48 (forty-eig ht) hours. [facility] spironolact one 25 mg tablet 2021-08 00:00: 00 Yes 25mg Take 1 tablet by mouth every 48 (forty-eig ht) hours. [facility] furosemide 80 mg tablet 2021-08 00:00: 00 Yes 80mg Take 1 tablet by mouth every 48 (forty-eig ht) hours. [facility] spironolact one 25 mg tablet 2021-08 00:00: 00 Yes 25mg Take 1 tablet by mouth every 48 (forty-eig ht) hours. [facility] furosemide 80 mg tablet 2021-08 00:00: 00 Yes 80mg Take 1 tablet by mouth every 48 (forty-eig ht) hours. [facility] spironolact one 25 mg tablet 2021-08 00:00: 00 Yes 25mg Take 1 tablet by mouth every 48 (forty-eig ht) hours. [facility] furosemide 80 mg tablet 2021-08 00:00: 00 Yes 80mg Take 1 tablet by mouth every 48 (forty-eig ht) hours. [facility] spironolact one 25 mg tablet 2021-08 00:00: 00 Yes 25mg Take 1 tablet by mouth every 48 (forty-eig ht) hours. [facility] furosemide 80 mg tablet 2021-08 00:00: 00 Yes 80mg Take 1 tablet by mouth every 48 (forty-eig ht) hours. [facility] spironolact one 25 mg tablet 2021-08 00:00: 00 Yes 25mg Take 1 tablet by mouth every 48 (forty-eig ht) hours. [facility] furosemide 80 mg tablet 2021-08 00:00: 00 Yes 80mg Take 1 tablet by mouth every 48 (forty-eig ht) hours. [facility] spironolact one 25 mg tablet 2021-08 00:00: 00 Yes 25mg Take 1 tablet by mouth every 48 (forty-eig ht) hours. [facility] furosemide 80 mg tablet 2021-08 00:00: 00 Yes 80mg Take 1 tablet by mouth every 48 (forty-eig ht) hours. [facility] spironolact one 25 mg tablet 2021-08 00:00: 00 Yes 25mg Take 1 tablet by mouth every 48 (forty-eig ht) hours. [facility] furosemide 80 mg tablet 2021-08 00:00: 00 Yes 80mg Take 1 tablet by mouth every 48 (forty-eig ht) hours. [facility] spironolact one 25 mg tablet 2021-08 00:00: 00 Yes 25mg Take 1 tablet by mouth every 48 (forty-eig ht) hours. [facility] furosemide 80 mg tablet 2021-08 00:00: 00 Yes 80mg Take 1 tablet by mouth every 48 (forty-eig ht) hours. [facility] spironolact one 25 mg tablet 2021-08 00:00: 00 Yes 25mg Take 1 tablet by mouth every 48 (forty-eig ht) hours. [facility] furosemide 80 mg tablet 2021-08 00:00: 00 Yes 80mg Take 1 tablet by mouth every 48 (forty-eig ht) hours. [facility] spironolact one 25 mg tablet 2021-08 00:00: 00 Yes 25mg Take 1 tablet by mouth every 48 (forty-eig ht) hours. [facility] furosemide 80 mg tablet 2021-08 00:00: 00 Yes 80mg Take 1 tablet by mouth every 48 (forty-eig ht) hours. [facility] spironolact one 25 mg tablet 2021-08 00:00: 00 Yes 25mg Take 1 tablet by mouth every 48 (forty-eig ht) hours. [facility] furosemide 80 mg tablet 2021-08 00:00: 00 Yes 80mg Take 1 tablet by mouth every 48 (forty-eig ht) hours. [facility] spironolact one 25 mg tablet 2021-08 00:00: 00 Yes 25mg Take 1 tablet by mouth every 48 (forty-eig ht) hours. [facility] furosemide 80 mg tablet 2021-08 00:00: 00 Yes 80mg Take 1 tablet by mouth every 48 (forty-eig ht) hours. [facility] spironolact one 25 mg tablet 2021-08 00:00: 00 Yes 25mg Take 1 tablet by mouth every 48 (forty-eig ht) hours. [facility] furosemide 80 mg tablet 2021-08 00:00: 00 Yes 80mg Take 1 tablet by mouth every 48 (forty-eig ht) hours. [facility] spironolact one 25 mg tablet 2021-08 00:00: 00 Yes 25mg Take 1 tablet by mouth every 48 (forty-eig ht) hours. [facility] furosemide 80 mg tablet 2021-08 00:00: 00 Yes 80mg Take 1 tablet by mouth every 48 (forty-eig ht) hours. [facility] spironolact one 25 mg tablet 2021-08 00:00: 00 Yes 25mg Take 1 tablet by mouth every 48 (forty-eig ht) hours. [facility] furosemide 80 mg tablet 2021-08 00:00: 00 11-12 00:00 :00 No 80mg Take 1 tablet by mouth every 48 (forty-eig ht) hours. [facility] spironolact one 25 mg tablet 2021-08 00:00: 00 11-12 00:00 :00 No 25mg Take 1 tablet by mouth every 48 (forty-eig ht) hours. [facility] furosemide 80 mg tablet 2021-08 00:00: 00 11-12 00:00 :00 No 80mg Take 1 tablet by mouth every 48 (forty-eig ht) hours. [facility] spironolact one 25 mg tablet 2021-08 00:00: 00 11-12 00:00 :00 No 25mg Take 1 tablet by mouth every 48 (forty-eig ht) hours. [facility] furosemide 80 mg tablet 2021-08 00:00: 00 11-12 00:00 :00 No 80mg Take 1 tablet by mouth every 48 (forty-eig ht) hours. [facility] spironolact one 25 mg tablet 2021-08 00:00: 00 11-12 00:00 :00 No 25mg Take 1 tablet by mouth every 48 (forty-eig ht) hours. [facility] quinapriL 40 mg tablet 2021-08 00:00: 00 Yes [id number] 40mg Take 1 tablet by mouth every morning. [facility] quinapriL 40 mg tablet 2021-08 00:00: 00 Yes [id number] 40mg Take 1 tablet by mouth every morning. [facility] quinapriL 40 mg tablet 2021-08 00:00: 00 Yes [id number] 40mg Take 1 tablet by mouth every morning. [facility] quinapriL 40 mg tablet 2021-08 00:00: 00 Yes [id number] 40mg Take 1 tablet by mouth every morning. [facility] quinapriL 40 mg tablet 2021-08 00:00: 00 Yes [id number] 40mg Take 1 tablet by mouth every morning. [facility] quinapriL 40 mg tablet 2021-08 00:00: 00 Yes [id number] 40mg Take 1 tablet by mouth every morning. [facility] quinapriL 40 mg tablet 2021-08 00:00: 00 Yes [id number] 40mg Take 1 tablet by mouth every morning. [facility] quinapriL 40 mg tablet 2021-08 00:00: 00 Yes [id number] 40mg Take 1 tablet by mouth every morning. [facility] quinapriL 40 mg tablet 2021-08 00:00: 00 Yes [id number] 40mg Take 1 tablet by mouth every morning. [facility] quinapriL 40 mg tablet 2021-08 00:00: 00 Yes [id number] 40mg Take 1 tablet by mouth every morning. [facility] quinapriL 40 mg tablet 2021-08 00:00: 00 Yes [id number] 40mg Take 1 tablet by mouth every morning. [facility] quinapriL 40 mg tablet 2021-08 00:00: 00 Yes [id number] 40mg Take 1 tablet by mouth every morning. [facility] quinapriL 40 mg tablet 2021-08 00:00: 00 Yes [id number] 40mg Take 1 tablet by mouth every morning. [facility] quinapriL 40 mg tablet 2021-08 00:00: 00 Yes [id number] 40mg Take 1 tablet by mouth every morning. [facility] quinapriL 40 mg tablet 2021-08 00:00: 00 Yes [id number] 40mg Take 1 tablet by mouth every morning. [facility] quinapriL 40 mg tablet 2021-08 00:00: 00 Yes [id number] 40mg Take 1 tablet by mouth every morning. [facility] quinapriL 40 mg tablet 2021-08 00:00: 00 Yes [id number] 40mg Take 1 tablet by mouth every morning. [facility] quinapriL 40 mg tablet 2021-08 00:00: 00 Yes [id number] 40mg Take 1 tablet by mouth every morning. [facility] quinapriL 40 mg tablet 2021-08 00:00: 00 Yes [id number] 40mg Take 1 tablet by mouth every morning. [facility] quinapriL 40 mg tablet 2021-08 00:00: 00 Yes [id number] 40mg Take 1 tablet by mouth every morning. [facility] quinapriL 40 mg tablet 2021-08 00:00: 00 Yes [id number] 40mg Take 1 tablet by mouth every morning. [facility] quinapriL 40 mg tablet 2021-08 00:00: 00 Yes [id number] 40mg Take 1 tablet by mouth every morning. [facility] quinapriL 40 mg tablet 2021-08 00:00: 00 Yes [id number] 40mg Take 1 tablet by mouth every morning. [facility] quinapriL 40 mg tablet 2021-08 00:00: 00 Yes [id number] 40mg Take 1 tablet by mouth every morning. [facility] quinapriL 40 mg tablet 2021-08 00:00: 00 Yes [id number] 40mg Take 1 tablet by mouth every morning. [facility] quinapriL 40 mg tablet 2021-08 00:00: 00 Yes [id number] 40mg Take 1 tablet by mouth every morning. [facility] quinapriL 40 mg tablet 2021-08 00:00: 00 Yes [id number] 40mg Take 1 tablet by mouth every morning. [facility] quinapriL 40 mg tablet 2021-08 00:00: 00 Yes [id number] 40mg Take 1 tablet by mouth every morning. [facility] quinapriL 40 mg tablet 2021-08 00:00: 00 Yes [id number] 40mg Take 1 tablet by mouth every morning. [facility] quinapriL 40 mg tablet 2021-08 00:00: 00 Yes [id number] 40mg Take 1 tablet by mouth every morning. [facility] quinapriL 40 mg tablet 2021-08 00:00: 00 Yes [id number] 40mg Take 1 tablet by mouth every morning. [facility] quinapriL 40 mg tablet 2021-08 00:00: 00 Yes [id number] 40mg Take 1 tablet by mouth every morning. [facility] quinapriL 40 mg tablet 2021-08 00:00: 00 Yes [id number] 40mg Take 1 tablet by mouth every morning. [facility] quinapriL 40 mg tablet 2021-08 00:00: 00 Yes [id number] 40mg Take 1 tablet by mouth every morning. [facility] quinapriL 40 mg tablet 2021-08 00:00: 00 Yes [id number] 40mg Take 1 tablet by mouth every morning. [facility] quinapriL 40 mg tablet 2021-08 00:00: 00 Yes [id number] 40mg Take 1 tablet by mouth every morning. [facility] quinapriL 40 mg tablet 2021-08 00:00: 00 Yes [id number] 40mg Take 1 tablet by mouth every morning. [facility] quinapriL 40 mg tablet 2021-08 00:00: 00 Yes [id number] 40mg Take 1 tablet by mouth every morning. [facility] quinapriL 40 mg tablet 2021-08 00:00: 00 Yes [id number] 40mg Take 1 tablet by mouth every morning. [facility] quinapriL 40 mg tablet 2021-08 00:00: 00 Yes [id number] 40mg Take 1 tablet by mouth every morning. [facility] quinapriL 40 mg tablet 2021-08 00:00: 00 Yes [id number] 40mg Take 1 tablet by mouth every morning. [facility] quinapriL 40 mg tablet 2021-08 00:00: 00 Yes [id number] 40mg Take 1 tablet by mouth every morning. [facility] quinapriL 40 mg tablet 2021-08 00:00: 00 Yes [id number] 40mg Take 1 tablet by mouth every morning. [facility] quinapriL 40 mg tablet 2021-08 00:00: 00 Yes [id number] 40mg Take 1 tablet by mouth every morning. [facility] quinapriL 40 mg tablet 2021-08 00:00: 00 Yes [id number] 40mg Take 1 tablet by mouth every morning. [facility] quinapriL 40 mg tablet 2021-08 00:00: 00 Yes [id number] 40mg Take 1 tablet by mouth every morning. [facility] quinapriL 40 mg tablet 2021-08 00:00: 00 Yes [id number] 40mg Take 1 tablet by mouth every morning. [facility] quinapriL 40 mg tablet 2021-08 00:00: 00 Yes [id number] 40mg Take 1 tablet by mouth every morning. [facility] quinapriL 40 mg tablet 2021-08 00:00: 00 Yes [id number] 40mg Take 1 tablet by mouth every morning. [facility] quinapriL 40 mg tablet 2021-08 00:00: 00 Yes [id number] 40mg Take 1 tablet by mouth every morning. [facility] quinapriL 40 mg tablet 2021-08 00:00: 00 Yes [id number] 40mg Take 1 tablet by mouth every morning. [facility] quinapriL 40 mg tablet 2021-08 00:00: 00 Yes [id number] 40mg Take 1 tablet by mouth every morning. [facility] quinapriL 40 mg tablet 2021-08 00:00: 00 Yes [id number] 40mg Take 1 tablet by mouth every morning. [facility] quinapriL 40 mg tablet 2021-08 00:00: 00 Yes [id number] 40mg Take 1 tablet by mouth every morning. [facility] quinapriL 40 mg tablet 2021-08 00:00: 00 10-17 00:00 :00 No [id number] 40mg Take 1 tablet by mouth every morning. [facility] quinapriL 40 mg tablet 2021-08 00:00: 00 10-17 00:00 :00 No [id number] 40mg Take 1 tablet by mouth every morning. [facility] HYDROcodone -acetaminop hen 7.5-325 mg per tablet 2021-08 00:00: 00 Yes [id number] 1{tbl} Take 1 tablet by mouth every 6 (six) hours as needed for Pain. Indication s: chronic pain [facility] HYDROcodone -acetaminop hen 7.5-325 mg per tablet 2021-08 00:00: 00 Yes [id number] 1{tbl} Take 1 tablet by mouth every 6 (six) hours as needed for Pain. Indication s: chronic pain [facility] HYDROcodone -acetaminop hen 7.5-325 mg per tablet 2021-08 00:00: 00 Yes [id number] 1{tbl} Take 1 tablet by mouth every 6 (six) hours as needed for Pain. Indication s: chronic pain [facility] HYDROcodone -acetaminop hen 7.5-325 mg per tablet 2021-08 00:00: 00 Yes [id number] 1{tbl} Take 1 tablet by mouth every 6 (six) hours as needed for Pain. Indication s: chronic pain [facility] HYDROcodone -acetaminop hen 7.5-325 mg per tablet 2021-08 00:00: 00 Yes [id number] 1{tbl} Take 1 tablet by mouth every 6 (six) hours as needed for Pain. Indication s: chronic pain [facility] HYDROcodone -acetaminop hen 7.5-325 mg per tablet 2021-08 00:00: 00 Yes [id number] 1{tbl} Take 1 tablet by mouth every 6 (six) hours as needed for Pain. Indication s: chronic pain [facility] HYDROcodone -acetaminop hen 7.5-325 mg per tablet 2021-08 00:00: 00 Yes [id number] 1{tbl} Take 1 tablet by mouth every 6 (six) hours as needed for Pain. Indication s: chronic pain [facility] HYDROcodone -acetaminop hen 7.5-325 mg per tablet 2021-08 00:00: 00 Yes [id number] 1{tbl} Take 1 tablet by mouth every 6 (six) hours as needed for Pain. Indication s: chronic pain [facility] HYDROcodone -acetaminop hen 7.5-325 mg per tablet 2021-08 00:00: 00 Yes [id number] 1{tbl} Take 1 tablet by mouth every 6 (six) hours as needed for Pain. Indication s: chronic pain [facility] HYDROcodone -acetaminop hen 7.5-325 mg per tablet 2021-08 00:00: 00 Yes [id number] 1{tbl} Take 1 tablet by mouth every 6 (six) hours as needed for Pain. Indication s: chronic pain [facility] HYDROcodone -acetaminop hen 7.5-325 mg per tablet 2021-08 00:00: 00 Yes [id number] 1{tbl} Take 1 tablet by mouth every 6 (six) hours as needed for Pain. Indication s: chronic pain [facility] HYDROcodone -acetaminop hen 7.5-325 mg per tablet 2021-08 00:00: 00 Yes [id number] 1{tbl} Take 1 tablet by mouth every 6 (six) hours as needed for Pain. Indication s: chronic pain [facility] HYDROcodone -acetaminop hen 7.5-325 mg per tablet 2021-08 00:00: 00 Yes [id number] 1{tbl} Take 1 tablet by mouth every 6 (six) hours as needed for Pain. Indication s: chronic pain [facility] HYDROcodone -acetaminop hen 7.5-325 mg per tablet 2021-08 00:00: 00 Yes [id number] 1{tbl} Take 1 tablet by mouth every 6 (six) hours as needed for Pain. Indication s: chronic pain [facility] HYDROcodone -acetaminop hen 7.5-325 mg per tablet 2021-08 00:00: 00 Yes [id number] 1{tbl} Take 1 tablet by mouth every 6 (six) hours as needed for Pain. Indication s: chronic pain [facility] HYDROcodone -acetaminop hen 7.5-325 mg per tablet 2021-08 00:00: 00 Yes [id number] 1{tbl} Take 1 tablet by mouth every 6 (six) hours as needed for Pain. Indication s: chronic pain [facility] HYDROcodone -acetaminop hen 7.5-325 mg per tablet 2021-08 00:00: 00 Yes [id number] 1{tbl} Take 1 tablet by mouth every 6 (six) hours as needed for Pain. Indication s: chronic pain [facility] HYDROcodone -acetaminop hen 7.5-325 mg per tablet 2021-08 00:00: 00 07-30 00:00 :00 No [id number] 1{tbl} Take 1 tablet by mouth every 6 (six) hours as needed for Pain. Indication s: chronic pain [facility] MUPIROCIN 2 % ointment 2021-08 00:00: 00 Yes [id number] APPLY TOPICALLY TO THE AFFECTED AREA THREE TIMES DAILY [facility] MUPIROCIN 2 % ointment 2021-08 00:00: 00 Yes [id number] APPLY TOPICALLY TO THE AFFECTED AREA THREE TIMES DAILY [facility] MUPIROCIN 2 % ointment 2021-08 00:00: 00 Yes [id number] APPLY TOPICALLY TO THE AFFECTED AREA THREE TIMES DAILY [facility] MUPIROCIN 2 % ointment 2021-08 00:00: 00 Yes [id number] APPLY TOPICALLY TO THE AFFECTED AREA THREE TIMES DAILY [facility] MUPIROCIN 2 % ointment 2021-08 00:00: 00 Yes [id number] APPLY TOPICALLY TO THE AFFECTED AREA THREE TIMES DAILY [facility] MUPIROCIN 2 % ointment 2021-08 00:00: 00 Yes [id number] APPLY TOPICALLY TO THE AFFECTED AREA THREE TIMES DAILY [facility] MUPIROCIN 2 % ointment 2021-08 00:00: 00 Yes [id number] APPLY TOPICALLY TO THE AFFECTED AREA THREE TIMES DAILY [facility] MUPIROCIN 2 % ointment 2021-08 00:00: 00 Yes [id number] APPLY TOPICALLY TO THE AFFECTED AREA THREE TIMES DAILY [facility] MUPIROCIN 2 % ointment 2021-08 00:00: 00 Yes [id number] APPLY TOPICALLY TO THE AFFECTED AREA THREE TIMES DAILY [facility] MUPIROCIN 2 % ointment 2021-08 00:00: 00 Yes [id number] APPLY TOPICALLY TO THE AFFECTED AREA THREE TIMES DAILY [facility] MUPIROCIN 2 % ointment 2021-08 00:00: 00 Yes [id number] APPLY TOPICALLY TO THE AFFECTED AREA THREE TIMES DAILY [facility] MUPIROCIN 2 % ointment 2021-08 00:00: 00 Yes [id number] APPLY TOPICALLY TO THE AFFECTED AREA THREE TIMES DAILY [facility] MUPIROCIN 2 % ointment 2021-08 00:00: 00 Yes [id number] APPLY TOPICALLY TO THE AFFECTED AREA THREE TIMES DAILY [facility] MUPIROCIN 2 % ointment 2021-08 00:00: 00 Yes [id number] APPLY TOPICALLY TO THE AFFECTED AREA THREE TIMES DAILY [facility] MUPIROCIN 2 % ointment 2021-08 00:00: 00 Yes [id number] APPLY TOPICALLY TO THE AFFECTED AREA THREE TIMES DAILY [facility] MUPIROCIN 2 % ointment 2021-08 00:00: 00 Yes [id number] APPLY TOPICALLY TO THE AFFECTED AREA THREE TIMES DAILY [facility] MUPIROCIN 2 % ointment 2021-08 00:00: 00 Yes [id number] APPLY TOPICALLY TO THE AFFECTED AREA THREE TIMES DAILY [facility] MUPIROCIN 2 % ointment 2021-08 00:00: 00 Yes [id number] APPLY TOPICALLY TO THE AFFECTED AREA THREE TIMES DAILY [facility] MUPIROCIN 2 % ointment 2021-08 00:00: 00 Yes [id number] APPLY TOPICALLY TO THE AFFECTED AREA THREE TIMES DAILY [facility] MUPIROCIN 2 % ointment 2021-08 00:00: 00 Yes [id number] APPLY TOPICALLY TO THE AFFECTED AREA THREE TIMES DAILY [facility] MUPIROCIN 2 % ointment 2021-08 00:00: 00 Yes [id number] APPLY TOPICALLY TO THE AFFECTED AREA THREE TIMES DAILY [facility] MUPIROCIN 2 % ointment 2021-08 00:00: 00 Yes [id number] APPLY TOPICALLY TO THE AFFECTED AREA THREE TIMES DAILY [facility] MUPIROCIN 2 % ointment 2021-08 00:00: 00 Yes [id number] APPLY TOPICALLY TO THE AFFECTED AREA THREE TIMES DAILY [facility] MUPIROCIN 2 % ointment 2021-08 00:00: 00 Yes [id number] APPLY TOPICALLY TO THE AFFECTED AREA THREE TIMES DAILY [facility] MUPIROCIN 2 % ointment 2021-08 00:00: 00 Yes [id number] APPLY TOPICALLY TO THE AFFECTED AREA THREE TIMES DAILY [facility] MUPIROCIN 2 % ointment 2021-08 00:00: 00 Yes [id number] APPLY TOPICALLY TO THE AFFECTED AREA THREE TIMES DAILY [facility] MUPIROCIN 2 % ointment 2021-08 00:00: 00 Yes [id number] APPLY TOPICALLY TO THE AFFECTED AREA THREE TIMES DAILY [facility] MUPIROCIN 2 % ointment 2021-08 00:00: 00 Yes [id number] APPLY TOPICALLY TO THE AFFECTED AREA THREE TIMES DAILY [facility] MUPIROCIN 2 % ointment 2021-08 00:00: 00 Yes [id number] APPLY TOPICALLY TO THE AFFECTED AREA THREE TIMES DAILY [facility] MUPIROCIN 2 % ointment 2021-08 00:00: 00 Yes [id number] APPLY TOPICALLY TO THE AFFECTED AREA THREE TIMES DAILY [facility] MUPIROCIN 2 % ointment 2021-08 00:00: 00 Yes [id number] APPLY TOPICALLY TO THE AFFECTED AREA THREE TIMES DAILY [facility] MUPIROCIN 2 % ointment 2021-08 00:00: 00 Yes [id number] APPLY TOPICALLY TO THE AFFECTED AREA THREE TIMES DAILY [facility] MUPIROCIN 2 % ointment 2021-08 00:00: 00 Yes [id number] APPLY TOPICALLY TO THE AFFECTED AREA THREE TIMES DAILY [facility] MUPIROCIN 2 % ointment 2021-08 00:00: 00 Yes [id number] APPLY TOPICALLY TO THE AFFECTED AREA THREE TIMES DAILY [facility] MUPIROCIN 2 % ointment 2021-08 00:00: 00 Yes [id number] APPLY TOPICALLY TO THE AFFECTED AREA THREE TIMES DAILY [facility] MUPIROCIN 2 % ointment 2021-08 00:00: 00 Yes [id number] APPLY TOPICALLY TO THE AFFECTED AREA THREE TIMES DAILY [facility] MUPIROCIN 2 % ointment 2021-08 00:00: 00 Yes [id number] APPLY TOPICALLY TO THE AFFECTED AREA THREE TIMES DAILY [facility] MUPIROCIN 2 % ointment 2021-08 00:00: 00 Yes [id number] APPLY TOPICALLY TO THE AFFECTED AREA THREE TIMES DAILY [facility] MUPIROCIN 2 % ointment 2021-08 00:00: 00 Yes [id number] APPLY TOPICALLY TO THE AFFECTED AREA THREE TIMES DAILY [facility] MUPIROCIN 2 % ointment 2021-08 00:00: 00 Yes [id number] APPLY TOPICALLY TO THE AFFECTED AREA THREE TIMES DAILY [facility] MUPIROCIN 2 % ointment 2021-08 00:00: 00 Yes [id number] APPLY TOPICALLY TO THE AFFECTED AREA THREE TIMES DAILY [facility] MUPIROCIN 2 % ointment 2021-08 00:00: 00 Yes [id number] APPLY TOPICALLY TO THE AFFECTED AREA THREE TIMES DAILY [facility] MUPIROCIN 2 % ointment 2021-08 00:00: 00 Yes [id number] APPLY TOPICALLY TO THE AFFECTED AREA THREE TIMES DAILY [facility] MUPIROCIN 2 % ointment 2021-08 00:00: 00 Yes [id number] APPLY TOPICALLY TO THE AFFECTED AREA THREE TIMES DAILY [facility] MUPIROCIN 2 % ointment 2021-08 00:00: 00 Yes [id number] APPLY TOPICALLY TO THE AFFECTED AREA THREE TIMES DAILY [facility] MUPIROCIN 2 % ointment 2021-08 00:00: 00 Yes [id number] APPLY TOPICALLY TO THE AFFECTED AREA THREE TIMES DAILY [facility] MUPIROCIN 2 % ointment 2021-08 00:00: 00 Yes [id number] APPLY TOPICALLY TO THE AFFECTED AREA THREE TIMES DAILY [facility] MUPIROCIN 2 % ointment 2021-08 00:00: 00 Yes [id number] APPLY TOPICALLY TO THE AFFECTED AREA THREE TIMES DAILY [facility] MUPIROCIN 2 % ointment 2021-08 00:00: 00 Yes [id number] APPLY TOPICALLY TO THE AFFECTED AREA THREE TIMES DAILY [facility] MUPIROCIN 2 % ointment 2021-08 00:00: 00 Yes [id number] APPLY TOPICALLY TO THE AFFECTED AREA THREE TIMES DAILY [facility] MUPIROCIN 2 % ointment 2021-08 00:00: 00 Yes [id number] APPLY TOPICALLY TO THE AFFECTED AREA THREE TIMES DAILY [facility] MUPIROCIN 2 % ointment 2021-08 00:00: 00 Yes [id number] APPLY TOPICALLY TO THE AFFECTED AREA THREE TIMES DAILY [facility] MUPIROCIN 2 % ointment 2021-08 00:00: 00 Yes [id number] APPLY TOPICALLY TO THE AFFECTED AREA THREE TIMES DAILY [facility] MUPIROCIN 2 % ointment 2021-08 00:00: 00 Yes [id number] APPLY TOPICALLY TO THE AFFECTED AREA THREE TIMES DAILY [facility] MUPIROCIN 2 % ointment 2021-08 00:00: 00 Yes [id number] APPLY TOPICALLY TO THE AFFECTED AREA THREE TIMES DAILY [facility] MUPIROCIN 2 % ointment 2021-08 00:00: 00 Yes [id number] APPLY TOPICALLY TO THE AFFECTED AREA THREE TIMES DAILY [facility] MUPIROCIN 2 % ointment 2021-08 00:00: 00 Yes [id number] APPLY TOPICALLY TO THE AFFECTED AREA THREE TIMES DAILY [facility] MUPIROCIN 2 % ointment 2021-08 00:00: 00 Yes [id number] APPLY TOPICALLY TO THE AFFECTED AREA THREE TIMES DAILY [facility] MUPIROCIN 2 % ointment 2021-08 00:00: 00 Yes [id number] APPLY TOPICALLY TO THE AFFECTED AREA THREE TIMES DAILY [facility] MUPIROCIN 2 % ointment 2021-08 00:00: 00 Yes [id number] APPLY TOPICALLY TO THE AFFECTED AREA THREE TIMES DAILY [facility] MUPIROCIN 2 % ointment 2021-08 00:00: 00 Yes [id number] APPLY TOPICALLY TO THE AFFECTED AREA THREE TIMES DAILY [facility] MUPIROCIN 2 % ointment 2021-08 00:00: 00 Yes [id number] APPLY TOPICALLY TO THE AFFECTED AREA THREE TIMES DAILY [facility] MUPIROCIN 2 % ointment 2021-08 00:00: 00 Yes [id number] APPLY TOPICALLY TO THE AFFECTED AREA THREE TIMES DAILY [facility] MUPIROCIN 2 % ointment 2021-08 00:00: 00 Yes [id number] APPLY TOPICALLY TO THE AFFECTED AREA THREE TIMES DAILY [facility] MUPIROCIN 2 % ointment 2021-08 00:00: 00 Yes [id number] APPLY TOPICALLY TO THE AFFECTED AREA THREE TIMES DAILY [facility] MUPIROCIN 2 % ointment 2021-08 00:00: 00 Yes [id number] APPLY TOPICALLY TO THE AFFECTED AREA THREE TIMES DAILY [facility] MUPIROCIN 2 % ointment 2021-08 00:00: 00 Yes [id number] APPLY TOPICALLY TO THE AFFECTED AREA THREE TIMES DAILY [facility] MUPIROCIN 2 % ointment 2021-08 00:00: 00 Yes [id number] APPLY TOPICALLY TO THE AFFECTED AREA THREE TIMES DAILY [facility] MUPIROCIN 2 % ointment 2021-08 00:00: 00 Yes [id number] APPLY TOPICALLY TO THE AFFECTED AREA THREE TIMES DAILY [facility] MUPIROCIN 2 % ointment 2021-08 00:00: 00 Yes [id number] APPLY TOPICALLY TO THE AFFECTED AREA THREE TIMES DAILY [facility] MUPIROCIN 2 % ointment 2021-08 00:00: 00 Yes [id number] APPLY TOPICALLY TO THE AFFECTED AREA THREE TIMES DAILY [facility] MUPIROCIN 2 % ointment 2021-08 00:00: 00 Yes [id number] APPLY TOPICALLY TO THE AFFECTED AREA THREE TIMES DAILY [facility] MUPIROCIN 2 % ointment 2021-08 00:00: 00 Yes [id number] APPLY TOPICALLY TO THE AFFECTED AREA THREE TIMES DAILY [facility] MUPIROCIN 2 % ointment 2021-08 00:00: 00 Yes [id number] APPLY TOPICALLY TO THE AFFECTED AREA THREE TIMES DAILY [facility] MUPIROCIN 2 % ointment 2021-08 00:00: 00 Yes [id number] APPLY TOPICALLY TO THE AFFECTED AREA THREE TIMES DAILY [facility] MUPIROCIN 2 % ointment 2021-08 00:00: 00 Yes [id number] APPLY TOPICALLY TO THE AFFECTED AREA THREE TIMES DAILY [facility] MUPIROCIN 2 % ointment 2021-08 00:00: 00 Yes [id number] APPLY TOPICALLY TO THE AFFECTED AREA THREE TIMES DAILY [facility] MUPIROCIN 2 % ointment 2021-08 00:00: 00 Yes [id number] APPLY TOPICALLY TO THE AFFECTED AREA THREE TIMES DAILY [facility] MUPIROCIN 2 % ointment 2021-08 00:00: 00 Yes [id number] APPLY TOPICALLY TO THE AFFECTED AREA THREE TIMES DAILY [facility] MUPIROCIN 2 % ointment 2021-08 00:00: 00 Yes [id number] APPLY TOPICALLY TO THE AFFECTED AREA THREE TIMES DAILY [facility] MUPIROCIN 2 % ointment 2021-08 00:00: 00 Yes [id number] APPLY TOPICALLY TO THE AFFECTED AREA THREE TIMES DAILY [facility] MUPIROCIN 2 % ointment 2021-08 00:00: 00 Yes [id number] APPLY TOPICALLY TO THE AFFECTED AREA THREE TIMES DAILY [facility] MUPIROCIN 2 % ointment 2021-08 00:00: 00 Yes [id number] APPLY TOPICALLY TO THE AFFECTED AREA THREE TIMES DAILY [facility] MUPIROCIN 2 % ointment 2021-08 00:00: 00 Yes [id number] APPLY TOPICALLY TO THE AFFECTED AREA THREE TIMES DAILY [facility] MUPIROCIN 2 % ointment 2021-08 00:00: 00 Yes [id number] APPLY TOPICALLY TO THE AFFECTED AREA THREE TIMES DAILY [facility] MUPIROCIN 2 % ointment 2021-08 00:00: 00 Yes [id number] APPLY TOPICALLY TO THE AFFECTED AREA THREE TIMES DAILY [facility] MUPIROCIN 2 % ointment 2021-08 00:00: 00 Yes [id number] APPLY TOPICALLY TO THE AFFECTED AREA THREE TIMES DAILY [facility] MUPIROCIN 2 % ointment 2021-08 00:00: 00 Yes [id number] APPLY TOPICALLY TO THE AFFECTED AREA THREE TIMES DAILY [facility] MUPIROCIN 2 % ointment 2021-08 00:00: 00 Yes [id number] APPLY TOPICALLY TO THE AFFECTED AREA THREE TIMES DAILY [facility] MUPIROCIN 2 % ointment 2021-08 00:00: 00 Yes [id number] APPLY TOPICALLY TO THE AFFECTED AREA THREE TIMES DAILY [facility] MUPIROCIN 2 % ointment 2021-08 00:00: 00 Yes [id number] APPLY TOPICALLY TO THE AFFECTED AREA THREE TIMES DAILY [facility] MUPIROCIN 2 % ointment 2021-08 00:00: 00 Yes [id number] APPLY TOPICALLY TO THE AFFECTED AREA THREE TIMES DAILY [facility] MUPIROCIN 2 % ointment 2021-08 00:00: 00 Yes [id number] APPLY TOPICALLY TO THE AFFECTED AREA THREE TIMES DAILY [facility] MUPIROCIN 2 % ointment 2021-08 00:00: 00 Yes [id number] APPLY TOPICALLY TO THE AFFECTED AREA THREE TIMES DAILY [facility] MUPIROCIN 2 % ointment 2021-08 00:00: 00 Yes [id number] APPLY TOPICALLY TO THE AFFECTED AREA THREE TIMES DAILY [facility] MUPIROCIN 2 % ointment 2021-08 00:00: 00 Yes [id number] APPLY TOPICALLY TO THE AFFECTED AREA THREE TIMES DAILY [facility] MUPIROCIN 2 % ointment 2021-08 00:00: 00 Yes [id number] APPLY TOPICALLY TO THE AFFECTED AREA THREE TIMES DAILY [facility] MUPIROCIN 2 % ointment 2021-08 00:00: 00 Yes [id number] APPLY TOPICALLY TO THE AFFECTED AREA THREE TIMES DAILY [facility] MUPIROCIN 2 % ointment 2021-08 00:00: 00 Yes [id number] APPLY TOPICALLY TO THE AFFECTED AREA THREE TIMES DAILY [facility] MUPIROCIN 2 % ointment 2021-08 00:00: 00 Yes [id number] APPLY TOPICALLY TO THE AFFECTED AREA THREE TIMES DAILY [facility] MUPIROCIN 2 % ointment 2021-08 00:00: 00 Yes [id number] APPLY TOPICALLY TO THE AFFECTED AREA THREE TIMES DAILY [facility] MUPIROCIN 2 % ointment 2021-08 00:00: 00 Yes [id number] APPLY TOPICALLY TO THE AFFECTED AREA THREE TIMES DAILY [facility] MUPIROCIN 2 % ointment 2021-08 00:00: 00 Yes [id number] APPLY TOPICALLY TO THE AFFECTED AREA THREE TIMES DAILY [facility] MUPIROCIN 2 % ointment 2021-08 00:00: 00 Yes [id number] APPLY TOPICALLY TO THE AFFECTED AREA THREE TIMES DAILY [facility] MUPIROCIN 2 % ointment 2021-08 00:00: 00 Yes [id number] APPLY TOPICALLY TO THE AFFECTED AREA THREE TIMES DAILY [facility] MUPIROCIN 2 % ointment 2021-08 00:00: 00 Yes [id number] APPLY TOPICALLY TO THE AFFECTED AREA THREE TIMES DAILY [facility] MUPIROCIN 2 % ointment 2021-08 00:00: 00 Yes [id number] APPLY TOPICALLY TO THE AFFECTED AREA THREE TIMES DAILY [facility] MUPIROCIN 2 % ointment 2021-08 00:00: 00 Yes [id number] APPLY TOPICALLY TO THE AFFECTED AREA THREE TIMES DAILY [facility] MUPIROCIN 2 % ointment 2021-08 00:00: 00 Yes [id number] APPLY TOPICALLY TO THE AFFECTED AREA THREE TIMES DAILY [facility] MUPIROCIN 2 % ointment 2021-08 00:00: 00 Yes [id number] APPLY TOPICALLY TO THE AFFECTED AREA THREE TIMES DAILY [facility] MUPIROCIN 2 % ointment 2021-08 00:00: 00 Yes [id number] APPLY TOPICALLY TO THE AFFECTED AREA THREE TIMES DAILY [facility] MUPIROCIN 2 % ointment 2021-08 00:00: 00 Yes [id number] APPLY TOPICALLY TO THE AFFECTED AREA THREE TIMES DAILY [facility] MUPIROCIN 2 % ointment 2021-08 00:00: 00 Yes [id number] APPLY TOPICALLY TO THE AFFECTED AREA THREE TIMES DAILY [facility] MUPIROCIN 2 % ointment 2021-08 00:00: 00 Yes [id number] APPLY TOPICALLY TO THE AFFECTED AREA THREE TIMES DAILY [facility] MUPIROCIN 2 % ointment 2021-08 00:00: 00 Yes [id number] APPLY TOPICALLY TO THE AFFECTED AREA THREE TIMES DAILY [facility] MUPIROCIN 2 % ointment 2021-08 00:00: 00 Yes [id number] APPLY TOPICALLY TO THE AFFECTED AREA THREE TIMES DAILY [facility] MUPIROCIN 2 % ointment 2021-08 00:00: 00 Yes [id number] APPLY TOPICALLY TO THE AFFECTED AREA THREE TIMES DAILY [facility] MUPIROCIN 2 % ointment 2021-08 00:00: 00 Yes [id number] APPLY TOPICALLY TO THE AFFECTED AREA THREE TIMES DAILY [facility] MUPIROCIN 2 % ointment 2021-08 00:00: 00 Yes [id number] APPLY TOPICALLY TO THE AFFECTED AREA THREE TIMES DAILY [facility] MUPIROCIN 2 % ointment 2021-08 00:00: 00 Yes [id number] APPLY TOPICALLY TO THE AFFECTED AREA THREE TIMES DAILY [facility] MUPIROCIN 2 % ointment 2021-08 00:00: 00 Yes [id number] APPLY TOPICALLY TO THE AFFECTED AREA THREE TIMES DAILY [facility] MUPIROCIN 2 % ointment 2021-08 00:00: 00 Yes [id number] APPLY TOPICALLY TO THE AFFECTED AREA THREE TIMES DAILY [facility] MUPIROCIN 2 % ointment 2021-08 00:00: 00 Yes [id number] APPLY TOPICALLY TO THE AFFECTED AREA THREE TIMES DAILY [facility] MUPIROCIN 2 % ointment 2021-08 00:00: 00 Yes [id number] APPLY TOPICALLY TO THE AFFECTED AREA THREE TIMES DAILY [facility] MUPIROCIN 2 % ointment 2021-08 00:00: 00 Yes [id number] APPLY TOPICALLY TO THE AFFECTED AREA THREE TIMES DAILY [facility] MUPIROCIN 2 % ointment 2021-08 00:00: 00 Yes [id number] APPLY TOPICALLY TO THE AFFECTED AREA THREE TIMES DAILY [facility] MUPIROCIN 2 % ointment 2021-08 00:00: 00 Yes [id number] APPLY TOPICALLY TO THE AFFECTED AREA THREE TIMES DAILY [facility] MUPIROCIN 2 % ointment 2021-08 00:00: 00 Yes [id number] APPLY TOPICALLY TO THE AFFECTED AREA THREE TIMES DAILY [facility] MUPIROCIN 2 % ointment 2021-08 00:00: 00 Yes [id number] APPLY TOPICALLY TO THE AFFECTED AREA THREE TIMES DAILY [facility] MUPIROCIN 2 % ointment 2021-08 00:00: 00 Yes [id number] APPLY TOPICALLY TO THE AFFECTED AREA THREE TIMES DAILY [facility] MUPIROCIN 2 % ointment 2021-08 00:00: 00 Yes [id number] APPLY TOPICALLY TO THE AFFECTED AREA THREE TIMES DAILY [facility] MUPIROCIN 2 % ointment 2021-08 00:00: 00 Yes [id number] APPLY TOPICALLY TO THE AFFECTED AREA THREE TIMES DAILY [facility] MUPIROCIN 2 % ointment 2021-08 00:00: 00 Yes [id number] APPLY TOPICALLY TO THE AFFECTED AREA THREE TIMES DAILY [facility] MUPIROCIN 2 % ointment 2021-08 00:00: 00 Yes [id number] APPLY TOPICALLY TO THE AFFECTED AREA THREE TIMES DAILY [facility] MUPIROCIN 2 % ointment 2021-08 00:00: 00 Yes [id number] APPLY TOPICALLY TO THE AFFECTED AREA THREE TIMES DAILY [facility] MUPIROCIN 2 % ointment 2021-08 00:00: 00 Yes [id number] APPLY TOPICALLY TO THE AFFECTED AREA THREE TIMES DAILY [facility] MUPIROCIN 2 % ointment 2021-08 00:00: 00 Yes [id number] APPLY TOPICALLY TO THE AFFECTED AREA THREE TIMES DAILY [facility] MUPIROCIN 2 % ointment 2021-08 00:00: 00 Yes [id number] APPLY TOPICALLY TO THE AFFECTED AREA THREE TIMES DAILY [facility] MUPIROCIN 2 % ointment 2021-08 00:00: 00 Yes [id number] APPLY TOPICALLY TO THE AFFECTED AREA THREE TIMES DAILY [facility] MUPIROCIN 2 % ointment 2021-08 00:00: 00 Yes [id number] APPLY TOPICALLY TO THE AFFECTED AREA THREE TIMES DAILY [facility] MUPIROCIN 2 % ointment 2021-08 00:00: 00 Yes [id number] APPLY TOPICALLY TO THE AFFECTED AREA THREE TIMES DAILY [facility] MUPIROCIN 2 % ointment 2021-08 00:00: 00 Yes [id number] APPLY TOPICALLY TO THE AFFECTED AREA THREE TIMES DAILY [facility] MUPIROCIN 2 % ointment 2021-08 00:00: 00 Yes [id number] APPLY TOPICALLY TO THE AFFECTED AREA THREE TIMES DAILY [facility] MUPIROCIN 2 % ointment 2021-08 00:00: 00 Yes [id number] APPLY TOPICALLY TO THE AFFECTED AREA THREE TIMES DAILY [facility] MUPIROCIN 2 % ointment 2021-08 00:00: 00 Yes [id number] APPLY TOPICALLY TO THE AFFECTED AREA THREE TIMES DAILY [facility] MUPIROCIN 2 % ointment 2021-08 00:00: 00 Yes [id number] APPLY TOPICALLY TO THE AFFECTED AREA THREE TIMES DAILY [facility] MUPIROCIN 2 % ointment 2021-08 00:00: 00 Yes [id number] APPLY TOPICALLY TO THE AFFECTED AREA THREE TIMES DAILY [facility] MUPIROCIN 2 % ointment 2021-08 00:00: 00 Yes [id number] APPLY TOPICALLY TO THE AFFECTED AREA THREE TIMES DAILY [facility] MUPIROCIN 2 % ointment 2021-08 00:00: 00 Yes [id number] APPLY TOPICALLY TO THE AFFECTED AREA THREE TIMES DAILY [facility] MUPIROCIN 2 % ointment 2021-08 00:00: 00 Yes [id number] APPLY TOPICALLY TO THE AFFECTED AREA THREE TIMES DAILY [facility] MUPIROCIN 2 % ointment 2021-08 00:00: 00 Yes [id number] APPLY TOPICALLY TO THE AFFECTED AREA THREE TIMES DAILY [facility] MUPIROCIN 2 % ointment 2021-08 00:00: 00 Yes [id number] APPLY TOPICALLY TO THE AFFECTED AREA THREE TIMES DAILY [facility] MUPIROCIN 2 % ointment 2021-08 00:00: 00 Yes [id number] APPLY TOPICALLY TO THE AFFECTED AREA THREE TIMES DAILY [facility] MUPIROCIN 2 % ointment 2021-08 00:00: 00 Yes [id number] APPLY TOPICALLY TO THE AFFECTED AREA THREE TIMES DAILY [facility] MUPIROCIN 2 % ointment 2021-08 00:00: 00 Yes [id number] APPLY TOPICALLY TO THE AFFECTED AREA THREE TIMES DAILY [facility] MUPIROCIN 2 % ointment 2021-08 00:00: 00 Yes [id number] APPLY TOPICALLY TO THE AFFECTED AREA THREE TIMES DAILY [facility] MUPIROCIN 2 % ointment 2021-08 00:00: 00 Yes [id number] APPLY TOPICALLY TO THE AFFECTED AREA THREE TIMES DAILY [facility] MUPIROCIN 2 % ointment 2021-08 00:00: 00 Yes [id number] APPLY TOPICALLY TO THE AFFECTED AREA THREE TIMES DAILY [facility] MUPIROCIN 2 % ointment 2021-08 00:00: 00 Yes [id number] APPLY TOPICALLY TO THE AFFECTED AREA THREE TIMES DAILY [facility] MUPIROCIN 2 % ointment 2021-08 00:00: 00 Yes [id number] APPLY TOPICALLY TO THE AFFECTED AREA THREE TIMES DAILY [facility] MUPIROCIN 2 % ointment 2021-08 00:00: 00 Yes [id number] APPLY TOPICALLY TO THE AFFECTED AREA THREE TIMES DAILY [facility] MUPIROCIN 2 % ointment 2021-08 00:00: 00 Yes [id number] APPLY TOPICALLY TO THE AFFECTED AREA THREE TIMES DAILY [facility] MUPIROCIN 2 % ointment 2021-08 00:00: 00 Yes [id number] APPLY TOPICALLY TO THE AFFECTED AREA THREE TIMES DAILY [facility] MUPIROCIN 2 % ointment 2021-08 00:00: 00 Yes [id number] APPLY TOPICALLY TO THE AFFECTED AREA THREE TIMES DAILY [facility] MUPIROCIN 2 % ointment 2021-08 00:00: 00 Yes [id number] APPLY TOPICALLY TO THE AFFECTED AREA THREE TIMES DAILY [facility] MUPIROCIN 2 % ointment 2021-08 00:00: 00 Yes [id number] APPLY TOPICALLY TO THE AFFECTED AREA THREE TIMES DAILY [facility] MUPIROCIN 2 % ointment 2021-08 00:00: 00 07-09 00:00 :00 No [id number] APPLY TOPICALLY TO THE AFFECTED AREA THREE TIMES DAILY [facility] MUPIROCIN 2 % ointment 2021-08 00:00: 00 07-09 00:00 :00 No [id number] APPLY TOPICALLY TO THE AFFECTED AREA THREE TIMES DAILY [facility] clonazePAM 1 mg tablet 2021-08 00:00: 00 Yes [id number] 1mg Take 1 tablet by mouth in the morning and 1 tablet at noon and 1 tablet in the evening. [facility] clonazePAM 1 mg tablet 2021-08 00:00: 00 Yes [id number] 1mg Take 1 tablet by mouth in the morning and 1 tablet at noon and 1 tablet in the evening. [facility] clonazePAM 1 mg tablet 2021-08 00:00: 00 Yes [id number] 1mg Take 1 tablet by mouth in the morning and 1 tablet at noon and 1 tablet in the evening. [facility] clonazePAM 1 mg tablet 2021-08 00:00: 00 Yes [id number] 1mg Take 1 tablet by mouth in the morning and 1 tablet at noon and 1 tablet in the evening. [facility] clonazePAM 1 mg tablet 2021-08 00:00: 00 Yes [id number] 1mg Take 1 tablet by mouth in the morning and 1 tablet at noon and 1 tablet in the evening. [facility] clonazePAM 1 mg tablet 2021-08 00:00: 00 Yes [id number] 1mg Take 1 tablet by mouth in the morning and 1 tablet at noon and 1 tablet in the evening. [facility] clonazePAM 1 mg tablet 2021-08 00:00: 00 Yes [id number] 1mg Take 1 tablet by mouth in the morning and 1 tablet at noon and 1 tablet in the evening. [facility] clonazePAM 1 mg tablet 2021-08 00:00: 00 Yes [id number] 1mg Take 1 tablet by mouth in the morning and 1 tablet at noon and 1 tablet in the evening. [facility] clonazePAM 1 mg tablet 2021-08 00:00: 00 Yes [id number] 1mg Take 1 tablet by mouth in the morning and 1 tablet at noon and 1 tablet in the evening. [facility] clonazePAM 1 mg tablet 2021-08 00:00: 00 Yes [id number] 1mg Take 1 tablet by mouth in the morning and 1 tablet at noon and 1 tablet in the evening. [facility] clonazePAM 1 mg tablet 2021-08 00:00: 00 Yes [id number] 1mg Take 1 tablet by mouth in the morning and 1 tablet at noon and 1 tablet in the evening. [facility] clonazePAM 1 mg tablet 2021-08 00:00: 00 Yes [id number] 1mg Take 1 tablet by mouth in the morning and 1 tablet at noon and 1 tablet in the evening. [facility] clonazePAM 1 mg tablet 2021-08 00:00: 00 Yes [id number] 1mg Take 1 tablet by mouth in the morning and 1 tablet at noon and 1 tablet in the evening. [facility] clonazePAM 1 mg tablet 2021-08 00:00: 00 Yes [id number] 1mg Take 1 tablet by mouth in the morning and 1 tablet at noon and 1 tablet in the evening. [facility] clonazePAM 1 mg tablet 2021-08 00:00: 00 Yes [id number] 1mg Take 1 tablet by mouth in the morning and 1 tablet at noon and 1 tablet in the evening. [facility] clonazePAM 1 mg tablet 2021-08 00:00: 00 Yes [id number] 1mg Take 1 tablet by mouth in the morning and 1 tablet at noon and 1 tablet in the evening. [facility] clonazePAM 1 mg tablet 2021-08 00:00: 00 Yes [id number] 1mg Take 1 tablet by mouth in the morning and 1 tablet at noon and 1 tablet in the evening. [facility] 2021-08 00:00: 00 Yes [id number] 1mg Take 1 tablet by mouth in the morning and 1 tablet at noon and 1 tablet in the evening. [facility] clonazePAM 1 mg tablet 2021-08 00:00: 00 Yes [id number] 1mg Take 1 tablet by mouth in the morning and 1 tablet at noon and 1 tablet in the evening. [facility] clonazePAM 1 mg tablet 2021-08 00:00: 00 Yes [id number] 1mg Take 1 tablet by mouth in the morning and 1 tablet at noon and 1 tablet in the evening. [facility] clonazePAM 1 mg tablet 2021-08 00:00: 00 Yes [id number] 1mg Take 1 tablet by mouth in the morning and 1 tablet at noon and 1 tablet in the evening. [facility] clonazePAM 1 mg tablet 2021-08 00:00: 00 Yes [id number] 1mg Take 1 tablet by mouth in the morning and 1 tablet at noon and 1 tablet in the evening. [facility] clonazePAM 1 mg tablet 2021-08 00:00: 00 Yes [id number] 1mg Take 1 tablet by mouth in the morning and 1 tablet at noon and 1 tablet in the evening. [facility] clonazePAM 1 mg tablet 2021-08 00:00: 00 Yes [id number] 1mg Take 1 tablet by mouth in the morning and 1 tablet at noon and 1 tablet in the evening. [facility] clonazePAM 1 mg tablet 2021-08 00:00: 00 Yes [id number] 1mg Take 1 tablet by mouth in the morning and 1 tablet at noon and 1 tablet in the evening. [facility] clonazePAM 1 mg tablet 2021-08 00:00: 00 Yes [id number] 1mg Take 1 tablet by mouth in the morning and 1 tablet at noon and 1 tablet in the evening. [facility] clonazePAM 1 mg tablet 2021-08 00:00: 00 Yes [id number] 1mg Take 1 tablet by mouth in the morning and 1 tablet at noon and 1 tablet in the evening. [facility] clonazePAM 1 mg tablet 2021-08 00:00: 00 Yes [id number] 1mg Take 1 tablet by mouth in the morning and 1 tablet at noon and 1 tablet in the evening. [facility] clonazePAM 1 mg tablet 2021-08 00:00: 00 Yes [id number] 1mg Take 1 tablet by mouth in the morning and 1 tablet at noon and 1 tablet in the evening. [facility] clonazePAM 1 mg tablet 2021-08 00:00: 00 Yes [id number] 1mg Take 1 tablet by mouth in the morning and 1 tablet at noon and 1 tablet in the evening. [facility] clonazePAM 1 mg tablet 2021-08 00:00: 00 Yes [id number] 1mg Take 1 tablet by mouth in the morning and 1 tablet at noon and 1 tablet in the evening. [facility] clonazePAM 1 mg tablet 2021-08 00:00: 00 Yes [id number] 1mg Take 1 tablet by mouth in the morning and 1 tablet at noon and 1 tablet in the evening. [facility] clonazePAM 1 mg tablet 2021-08 00:00: 00 08-20 00:00 :00 No [id number] 1mg Take 1 tablet by mouth in the morning and 1 tablet at noon and 1 tablet in the evening. [facility] furosemide 80 mg tablet 2021-08 00:00: 00 Yes 80mg Take 1 tablet by mouth in the morning. [facility] furosemide 80 mg tablet 2021-08 00:00: 00 Yes 80mg Take 1 tablet by mouth in the morning. [facility] furosemide 80 mg tablet 2021-08 00:00: 00 Yes 80mg Take 1 tablet by mouth in the morning. [facility] furosemide 80 mg tablet 2021-08 00:00: 00 Yes 80mg Take 1 tablet by mouth in the morning. [facility] f[facility]sem[facility] 80 mg tablet 2021-08 00:00: 00 Yes 80mg Take 1 tablet by mouth in the morning. [facility] furosemide 80 mg tablet 2021-08 00:00: 00 Yes 80mg Take 1 tablet by mouth in the morning. [facility] f[facility]semide [facility] mg tablet 2021-08 00:00: 00 Yes 80mg Take 1 tablet by mouth in the morning. [facility] furosemide 80 mg tablet 2021-08 00:00: 00 Yes 80mg Take 1 tablet by mouth in the morning. [facility] furosemide 80 mg tablet 2021-08 00:00: 00 Yes 80mg Take 1 tablet by mouth in the morning. [facility] furosemide 80 mg tablet 2021-08 00:00: 00 Yes 80mg Take 1 tablet by mouth in the morning. [facility] furosemide 80 mg tablet 2021-08 00:00: 00 Yes 80mg Take 1 tablet by mouth in the morning. [facility] furosemide 80 mg tablet 2021-08 00:00: 00 Yes 80mg Take 1 tablet by mouth in the morning. [facility] furosemide 80 mg tablet 2021-08 00:00: 00 Yes 80mg Take 1 tablet by mouth in the morning. [facility] furosemide 80 mg tablet 2021-08 00:00: 00 Yes 80mg Take 1 tablet by mouth in the morning. [facility] furosemide 80 mg tablet 2021-08 00:00: 00 Yes 80mg Take 1 tablet by mouth in the morning. [facility] furosemide 80 mg tablet 2021-08 00:00: 00 Yes 80mg Take 1 tablet by mouth in the morning. [facility] furosemide 80 mg tablet 2021-08 00:00: 00 Yes 80mg Take 1 tablet by mouth in the morning. [facility] furosemide 80 mg tablet 2021-08 00:00: 00 Yes 80mg Take 1 tablet by mouth in the morning. [facility] furosemide 80 mg tablet 2021-08 00:00: 00 Yes 80mg Take 1 tablet by mouth in the morning. [facility] furosemide 80 mg tablet 2021-08 00:00: 00 07-10 00:00 :00 No 80mg Take 1 tablet by mouth in the morning. [facility] furosemide 80 mg tablet 2021-08 00:00: 00 07-10 00:00 :00 No 80mg Take 1 tablet by mouth in the morning. [facility] NIFEdipine ER 30 mg tablet 2021-08 00:00: 00 Yes [id number] 30mg Take 1 tablet by mouth in the morning and 1 tablet in the evening. [facility] NIFEdipine ER 30 mg tablet 2021-08 00:00: 00 Yes [id number] 30mg Take 1 tablet by mouth in the morning and 1 tablet in the evening. [facility] NIFEdipine ER 30 mg tablet 2021-08 00:00: 00 Yes [id number] 30mg Take 1 tablet by mouth in the morning and 1 tablet in the evening. [facility] NIFEdipine ER 30 mg tablet 2021-08 00:00: 00 Yes [id number] 30mg Take 1 tablet by mouth in the morning and 1 tablet in the evening. [facility] NIFEdipine ER 30 mg tablet 2021-08 00:00: 00 Yes [id number] 30mg Take 1 tablet by mouth in the morning and 1 tablet in the evening. [facility] NIFEdipine ER 30 mg tablet 2021-08 00:00: 00 Yes [id number] 30mg Take 1 tablet by mouth in the morning and 1 tablet in the evening. [facility] NIFEdipine ER 30 mg tablet 2021-08 00:00: 00 Yes [id number] 30mg Take 1 tablet by mouth in the morning and 1 tablet in the evening. [facility] NIFEdipine ER 30 mg tablet 2021-08 00:00: 00 Yes [id number] 30mg Take 1 tablet by mouth in the morning and 1 tablet in the evening. [facility] NIFEdipine ER 30 mg tablet 2021-08 00:00: 00 Yes [id number] 30mg Take 1 tablet by mouth in the morning and 1 tablet in the evening. [facility] NIFEdipine ER 30 mg tablet 2021-08 00:00: 00 Yes [id number] 30mg Take 1 tablet by mouth in the morning and 1 tablet in the evening. [facility] NIFEdipine ER 30 mg tablet 2021-08 00:00: 00 Yes [id number] 30mg Take 1 tablet by mouth in the morning and 1 tablet in the evening. [facility] NIFEdipine ER 30 mg tablet 2021-08 00:00: 00 Yes [id number] 30mg Take 1 tablet by mouth in the morning and 1 tablet in the evening. [facility] NIFEdipine ER 30 mg tablet 2021-08 00:00: 00 Yes [id number] 30mg Take 1 tablet by mouth in the morning and 1 tablet in the evening. [facility] NIFEdipine ER 30 mg tablet 2021-08 00:00: 00 Yes [id number] 30mg Take 1 tablet by mouth in the morning and 1 tablet in the evening. [facility] NIFEdipine ER 30 mg tablet 2021-08 00:00: 00 Yes [id number] 30mg Take 1 tablet by mouth in the morning and 1 tablet in the evening. [facility] NIFEdipine ER 30 mg tablet 2021-08 00:00: 00 Yes [id number] 30mg Take 1 tablet by mouth in the morning and 1 tablet in the evening. [facility] NIFEdipine ER 30 mg tablet 2021-08 00:00: 00 Yes [id number] 30mg Take 1 tablet by mouth in the morning and 1 tablet in the evening. [facility] NIFEdipine ER 30 mg tablet 2021-08 00:00: 00 Yes [id number] 30mg Take 1 tablet by mouth in the morning and 1 tablet in the evening. [facility] NIFEdipine ER 30 mg tablet 2021-08 00:00: 00 Yes [id number] 30mg Take 1 tablet by mouth in the morning and 1 tablet in the evening. [facility] NIFEdipine ER 30 mg tablet 2021-08 00:00: 00 Yes [id number] 30mg Take 1 tablet by mouth in the morning and 1 tablet in the evening. [facility] NIFEdipine ER 30 mg tablet 2021-08 00:00: 00 Yes [id number] 30mg Take 1 tablet by mouth in the morning and 1 tablet in the evening. [facility] NIFEdip[facility] ER 30 mg tablet 2021-08 00:00: 00 Yes [id number] 30mg Take 1 tablet by mouth in the morning and 1 tablet in the evening. [facility] NIFEdipine ER 30 mg tablet 2021-08 00:00: 00 Yes [id number] 30mg Take 1 tablet by mouth in the morning and 1 tablet in the evening. [facility] NIFEdipine ER 30 mg tablet 2021-08 00:00: 00 Yes [id number] 30mg Take 1 tablet by mouth in the morning and 1 tablet in the evening. [facility] NIFEdipine ER 30 mg tablet 2021-08 00:00: 00 Yes [id number] 30mg Take 1 tablet by mouth in the morning and 1 tablet in the evening. [facility] NIFEdipine ER 30 mg tablet 2021-08 00:00: 00 Yes [id number] 30mg Take 1 tablet by mouth in the morning and 1 tablet in the evening. [facility] NIFEdipine ER 30 mg tablet 2021-08 00:00: 00 Yes [id number] 30mg Take 1 tablet by mouth in the morning and 1 tablet in the evening. [facility] NIFEdipine ER 30 mg tablet 2021-08 00:00: 00 Yes [id number] 30mg Take 1 tablet by mouth in the morning and 1 tablet in the evening. [facility] NIFEdipine ER 30 mg tablet 2021-08 00:00: 00 Yes [id number] 30mg Take 1 tablet by mouth in the morning and 1 tablet in the evening. [facility] NIFEdipine ER 30 mg tablet 2021-08 00:00: 00 Yes [id number] 30mg Take 1 tablet by mouth in the morning and 1 tablet in the evening. [facility] NIFEdipine ER 30 mg tablet 2021-08 00:00: 00 Yes [id number] 30mg Take 1 tablet by mouth in the morning and 1 tablet in the evening. [facility] NIFEdipine ER 30 mg tablet 2021-08 00:00: 00 Yes [id number] 30mg Take 1 tablet by mouth in the morning and 1 tablet in the evening. [facility] NIFEdipine ER 30 mg tablet 2021-08 00:00: 00 Yes [id number] 30mg Take 1 tablet by mouth in the morning and 1 tablet in the evening. [facility] NIFEdipine ER 30 mg tablet 2021-08 00:00: 00 07-21 00:00 :00 No [id number] 30mg Take 1 tablet by mouth in the morning and 1 tablet in the evening. [facility] NIFEdipine ER 30 mg tablet 2021-08 00:00: 00 07-21 00:00 :00 No [id number] 30mg Take 1 tablet by mouth in the morning and 1 tablet in the evening. [facility] insulin degludec (TRESIBA FLEXTOUCH U-200) 200 unit/mL (3 mL) [facility] 2021-08 00:00: 00 Yes [id number] ADMINISTER 62 UNITS UNDER THE SKIN THREE TIMES DAILY [facility] insulin degludec (TRESIBA FLEXTOUCH U-200) 200 unit/mL (3 mL) [facility] 2021-08 00:00: 00 Yes [id number] ADMINISTER 62 UNITS UNDER THE SKIN THREE TIMES DAILY [facility] insulin degludec (TRESIBA FLEXTOUCH U-200) 200 unit/mL (3 mL) [facility] 2021-08 00:00: 00 Yes [id number] ADMINISTER 62 UNITS UNDER THE SKIN THREE TIMES DAILY [facility] insulin degludec (TRESIBA FLEXTOUCH U-200) 200 unit/mL (3 mL) [facility] 2021-08 00:00: 00 Yes [id number] ADMINISTER 62 UNITS UNDER THE SKIN THREE TIMES DAILY [facility] insulin degludec (TRESIBA FLEXTOUCH U-200) 200 unit/mL (3 mL) [facility] 2021-08 00:00: 00 Yes [id number] ADMINISTER 62 UNITS UNDER THE SKIN THREE TIMES DAILY [facility] insulin degludec (TRESIBA FLEXTOUCH U-200) 200 unit/mL (3 mL) In 2021-08 00:00: 00 Yes [id number] ADMINISTER 62 UNITS UNDER THE SKIN THREE TIMES DAILY [facility] insulin degludec (TRESIBA FLEXTOUCH U-200) 200 unit/mL (3 mL) In 2021-08 00:00: 00 Yes [id number] ADMINISTER 62 UNITS UNDER THE SKIN THREE [facility] (TRESIBA FLEXTOUCH U-200) 200 unit/mL (3 mL) In 2021-08 00:00: 00 Yes [id number] ADMINISTER 62 UNITS UNDER THE SKIN THREE TIMES DAILY [facility] insulin degludec (TRESIBA FLEXTOUCH U-200) 200 unit/mL (3 mL) [facility] 2021-08 00:00: 00 Yes [id number] ADMINISTER 62 UNITS UNDER THE SKIN THREE TIMES DAILY [facility] insulin degludec (TRESIBA FLEXTOUCH U-200) 200 unit/mL (3 mL) [facility] 2021-08 00:00: 00 Yes [id number] ADMINISTER 62 UNITS UNDER THE SKIN THREE TIMES DAILY [facility] insulin degludec (TRESIBA FLEXTOUCH U-200) 200 unit/mL (3 mL) [facility] 2021-08 00:00: 00 Yes [id number] ADMINISTER 62 UNITS UNDER THE SKIN THREE TIMES DAILY [facility] insulin degludec (TRESIBA FLEXTOUCH U-200) 200 unit/mL (3 mL) [facility] 2021-08 00:00: 00 Yes [id number] ADMINISTER 62 UNITS UNDER THE SKIN THREE TIMES DAILY [facility] insulin degludec (TRESIBA FLEXTOUCH U-200) 200 unit/mL (3 mL) In 2021-08 00:00: 00 Yes [id number] ADMINISTER 62 UNITS UNDER THE SKIN THREE TIMES DAILY [facility] insulin degludec (TRESIBA FLEXTOUCH U-200) 200 unit/mL (3 mL) [facility] 2021-08 00:00: 00 Yes [id number] ADMINISTER 62 UNITS UNDER THE SKIN THREE TIMES DAILY [facility] insulin degludec (TRESIBA FLEXTOUCH U-200) 200 unit/mL (3 mL) In 2021-08 00:00: 00 Yes [id number] ADMINISTER 62 UNITS UNDER THE SKIN THREE TIMES DAILY [facility] insulin degludec (TRESIBA FLEXTOUCH U-200) 200 unit/mL (3 mL) In 2021-08 00:00: 00 Yes [id number] ADMINISTER 62 UNITS UNDER THE SKIN THREE TIMES DAILY [facility] insulin degludec (TRESIBA FLEXTOUCH U-200) 200 unit/mL (3 mL) In 2021-08 00:00: 00 Yes [id number] ADMINISTER 62 UNITS UNDER THE SKIN THREE TIMES DAILY [facility] insulin degludec (TRESIBA FLEXTOUCH U-200) 200 unit/mL (3 mL) In 2021-08 00:00: 00 Yes [id number] ADMINISTER 62 UNITS UNDER THE SKIN THREE TIMES DAILY [facility] insulin degludec (TRESIBA FLEXTOUCH U-200) 200 unit/mL (3 mL) In 2021-08 00:00: 00 Yes [id number] ADMINISTER 62 UNITS UNDER THE SKIN THREE TIMES DAILY [facility] insulin degludec (TRESIBA FLEXTOUCH U-200) 200 unit/mL (3 mL) [facility] 2021-08 00:00: 00 Yes [id number] ADMINISTER 62 UNITS UNDER THE SKIN THREE TIMES DAILY [facility] insulin degludec (TRESIBA FLEXTOUCH U-200) 200 unit/mL (3 mL) In 2021-08 00:00: 00 Yes [id number] ADMINISTER 62 UNITS UNDER THE SKIN THREE TIMES DAILY [facility] insulin degludec (TRESIBA FLEXTOUCH U-200) 200 unit/mL (3 mL) In 2021-08 00:00: 00 Yes [id number] ADMINISTER 62 UNITS UNDER THE SKIN THREE TIMES DAILY [facility] insulin degludec (TRESIBA FLEXTOUCH U-200) 200 unit/mL (3 mL) In 2021-08 00:00: 00 Yes [id number] ADMINISTER 62 UNITS UNDER THE SKIN THREE TIMES DAILY [facility] insulin degludec (TRESIBA FLEXTOUCH U-200) 200 unit/mL (3 mL) In 2021-08 00:00: 00 Yes [id number] ADMINISTER 62 UNITS UNDER THE SKIN THREE TIMES DAILY [facility] insulin degludec (TRESIBA FLEXTOUCH U-200) 200 unit/mL (3 mL) In 2021-08 00:00: 00 Yes [id number] ADMINISTER 62 UNITS UNDER THE SKIN THREE TIMES DAILY [facility] insulin degludec (TRESIBA FLEXTOUCH U-200) 200 unit/mL (3 mL) In 2021-08 00:00: 00 Yes [id number] ADMINISTER 62 UNITS UNDER THE SKIN THREE TIMES DAILY [facility] insulin degludec (TRESIBA FLEXTOUCH U-200) 200 unit/mL (3 mL) In 2021-08 00:00: 00 Yes [id number] ADMINISTER 62 UNITS UNDER THE SKIN THREE TIMES DAILY [facility] insulin degludec (TRESIBA FLEXTOUCH U-200) 200 unit/mL (3 mL) In 2021-08 00:00: 00 Yes [id number] ADMINISTER 62 UNITS UNDER THE SKIN THREE TIMES DAILY [facility] insulin degludec (TRESIBA FLEXTOUCH U-200) 200 unit/mL (3 mL) In 2021-08 00:00: 00 Yes [id number] ADMINISTER 62 UNITS UNDER THE SKIN THREE TIMES DAILY [facility] insulin degludec (TRESIBA FLEXTOUCH U-200) 200 unit/mL (3 mL) In 2021-08 00:00: 00 Yes [id number] ADMINISTER 62 UNITS UNDER THE SKIN THREE TIMES DAILY [facility] insulin degludec (TRESIBA FLEXTOUCH U-200) 200 unit/mL (3 mL) [facility] 2021-08 00:00: 00 Yes [id number] ADMINISTER 62 UNITS UNDER THE SKIN THREE TIMES DAILY [facility] insulin degludec (TRESIBA FLEXTOUCH U-200) 200 unit/mL (3 mL) [facility] 2021-08 00:00: 00 Yes [id number] ADMINISTER 62 UNITS UNDER THE SKIN THREE TIMES DAILY [facility] insulin degludec (TRESIBA FLEXTOUCH U-200) 200 unit/mL (3 mL) In 2021-08 00:00: 00 Yes [id number] ADMINISTER 62 UNITS UNDER THE SKIN THREE TIMES DAILY [facility] insulin degludec (TRESIBA FLEXTOUCH U-200) 200 unit/mL (3 mL) [facility] 2021-08 00:00: 00 Yes [id number] ADMINISTER 62 UNITS UNDER THE SKIN THREE TIMES DAILY [facility] insulin degludec (TRESIBA FLEXTOUCH U-200) 200 unit/mL (3 mL) [facility] 2021-08 00:00: 00 Yes [id number] ADMINISTER 62 UNITS UNDER THE SKIN THREE TIMES DAILY [facility] insulin degludec (TRESIBA FLEXTOUCH U-200) 200 unit/mL (3 mL) [facility] 2021-08 00:00: 00 Yes [id number] ADMINISTER 62 UNITS UNDER THE SKIN THREE TIMES DAILY [facility] insulin degludec (TRESIBA FLEXTOUCH U-200) 200 unit/mL (3 mL) [facility] 2021-08 00:00: 00 Yes [id number] ADMINISTER 62 UNITS UNDER THE SKIN THREE TIMES DAILY [facility] insulin degludec (TRESIBA FLEXTOUCH U-200) 200 unit/mL (3 mL) [facility] 2021-08 00:00: 00 Yes [id number] ADMINISTER 62 UNITS UNDER THE SKIN THREE TIMES DAILY [facility] insulin degludec (TRESIBA FLEXTOUCH U-200) 200 unit/mL (3 mL) [facility] 2021-08 00:00: 00 Yes [id number] ADMINISTER 62 UNITS UNDER THE SKIN THREE TIMES DAILY [facility] insulin degludec (TRESIBA FLEXTOUCH U-200) 200 unit/mL (3 mL) In 2021-08 00:00: 00 Yes [id number] ADMINISTER 62 UNITS UNDER THE SKIN THREE TIMES DAILY [facility] insulin degludec (TRESIBA FLEXTOUCH U-200) 200 unit/mL (3 mL) In 2021-08 00:00: 00 Yes [id number] ADMINISTER 62 UNITS UNDER THE SKIN THREE TIMES DAILY [facility] insulin degludec (TRESIBA FLEXTOUCH U-200) 200 unit/mL (3 mL) In 2021-08 00:00: 00 Yes [id number] ADMINISTER 62 UNITS UNDER THE SKIN THREE TIMES DAILY [facility] insulin degludec (TRESIBA FLEXTOUCH U-200) 200 unit/mL (3 mL) In 2021-08 00:00: 00 Yes [id number] ADMINISTER 62 UNITS UNDER THE SKIN THREE TIMES DAILY [facility] insulin degludec (TRESIBA FLEXTOUCH U-200) 200 unit/mL (3 mL) In 2021-08 00:00: 00 Yes [id number] ADMINISTER 62 UNITS UNDER THE SKIN THREE TIMES DAILY [facility] insulin degludec (TRESIBA FLEXTOUCH U-200) 200 unit/mL (3 mL) [facility] 2021-08 00:00: 00 Yes [id number] ADMINISTER 62 UNITS UNDER THE SKIN THREE TIMES DAILY [facility] insulin degludec (TRESIBA FLEXTOUCH U-200) 200 unit/mL (3 mL) In 2021-08 00:00: 00 Yes [id number] ADMINISTER 62 UNITS UNDER THE SKIN THREE TIMES DAILY [facility] insulin degludec (TRESIBA FLEXTOUCH U-200) 200 unit/mL (3 mL) In 2021-08 00:00: 00 Yes [id number] ADMINISTER 62 UNITS UNDER THE SKIN THREE TIMES DAILY [facility] insulin degludec (TRESIBA FLEXTOUCH U-200) 200 unit/mL (3 mL) In 2021-08 00:00: 00 Yes [id number] ADMINISTER 62 UNITS UNDER THE SKIN THREE TIMES DAILY [facility] insulin degludec (TRESIBA FLEXTOUCH U-200) 200 unit/mL (3 mL) In 2021-08 00:00: 00 Yes [id number] ADMINISTER 62 UNITS UNDER THE SKIN THREE TIMES DAILY [facility] insulin degludec (TRESIBA FLEXTOUCH U-200) 200 unit/mL (3 mL) In 2021-08 00:00: 00 Yes [id number] ADMINISTER 62 UNITS UNDER THE SKIN THREE TIMES DAILY [facility] insulin degludec (TRESIBA FLEXTOUCH U-200) 200 unit/mL (3 mL) In 2021-08 00:00: 00 Yes [id number] ADMINISTER 62 UNITS UNDER THE SKIN THREE TIMES DAILY [facility] insulin degludec (TRESIBA FLEXTOUCH U-200) 200 unit/mL (3 mL) [facility] 2021-08 00:00: 00 Yes [id number] ADMINISTER 62 UNITS UNDER THE SKIN THREE TIMES DAILY [facility] insulin degludec (TRESIBA FLEXTOUCH U-200) 200 unit/mL (3 mL) [facility] 2021-08 00:00: 00 Yes [id number] ADMINISTER 62 UNITS UNDER THE SKIN THREE TIMES DAILY [facility] insulin degludec (TRESIBA FLEXTOUCH U-200) 200 unit/mL (3 mL) [facility] 2021-08 00:00: 00 Yes [id number] ADMINISTER 62 UNITS UNDER THE SKIN THREE TIMES DAILY [facility] insulin degludec (TRESIBA FLEXTOUCH U-200) 200 unit/mL (3 mL) In 2021-08 00:00: 00 Yes [id number] ADMINISTER 62 UNITS UNDER THE SKIN THREE TIMES DAILY [facility] insulin degludec (TRESIBA FLEXTOUCH U-200) 200 unit/mL (3 mL) [facility] 2021-08 00:00: 00 Yes [id number] ADMINISTER 62 UNITS UNDER THE SKIN THREE TIMES DAILY [facility] insulin degludec (TRESIBA FLEXTOUCH U-200) 200 unit/mL (3 mL) In 2021-08 00:00: 00 Yes [id number] ADMINISTER 62 UNITS UNDER THE SKIN THREE TIMES DAILY [facility] insulin degludec (TRESIBA FLEXTOUCH U-200) 200 unit/mL (3 mL) In 2021-08 00:00: 00 Yes [id number] ADMINISTER 62 UNITS UNDER THE SKIN THREE TIMES DAILY [facility] insulin degludec (TRESIBA FLEXTOUCH U-200) 200 unit/mL (3 mL) In 2021-08 00:00: 00 Yes [id number] ADMINISTER 62 UNITS UNDER THE SKIN THREE TIMES DAILY [facility] insulin degludec (TRESIBA FLEXTOUCH U-200) 200 unit/mL (3 mL) [facility] 2021-08 00:00: 00 Yes [id number] ADMINISTER 62 UNITS UNDER THE SKIN THREE TIMES DAILY [facility] insulin degludec (TRESIBA FLEXTOUCH U-200) 200 unit/mL (3 mL) [facility] 2021-08 00:00: 00 Yes [id number] ADMINISTER 62 UNITS UNDER THE SKIN THREE TIMES DAILY [facility] insulin degludec (TRESIBA FLEXTOUCH U-200) 200 unit/mL (3 mL) [facility] 2021-08 00:00: 00 Yes [id number] ADMINISTER 62 UNITS UNDER THE SKIN THREE TIMES DAILY [facility] insulin degludec (TRESIBA FLEXTOUCH U-200) 200 unit/mL (3 mL) [facility] 2021-08 00:00: 00 Yes [id number] ADMINISTER 62 UNITS UNDER THE SKIN THREE TIMES DAILY [facility] insulin degludec (TRESIBA FLEXTOUCH U-200) 200 unit/mL (3 mL) In 2021-08 00:00: 00 Yes [id number] ADMINISTER 62 UNITS UNDER THE SKIN THREE TIMES DAILY [facility] insulin degludec (TRESIBA FLEXTOUCH U-200) 200 unit/mL (3 mL) In 2021-08 00:00: 00 Yes [id number] ADMINISTER 62 UNITS UNDER THE SKIN THREE TIMES DAILY [facility] insulin degludec (TRESIBA FLEXTOUCH U-200) 200 unit/mL (3 mL) In 2021-08 00:00: 00 Yes [id number] ADMINISTER 62 UNITS UNDER THE SKIN THREE TIMES DAILY [facility] insulin degludec (TRESIBA FLEXTOUCH U-200) 200 unit/mL (3 mL) In 2021-08 00:00: 00 Yes [id number] ADMINISTER 62 UNITS UNDER THE SKIN THREE TIMES DAILY [facility] insulin degludec (TRESIBA FLEXTOUCH U-200) 200 unit/mL (3 mL) In 2021-08 00:00: 00 Yes [id number] ADMINISTER 62 UNITS UNDER THE SKIN THREE TIMES DAILY [facility] insulin degludec (TRESIBA FLEXTOUCH U-200) 200 unit/mL (3 mL) In 2021-08 00:00: 00 Yes [id number] ADMINISTER 62 UNITS UNDER THE SKIN THREE TIMES DAILY [facility] insulin degludec (TRESIBA FLEXTOUCH U-200) 200 unit/mL (3 mL) [facility] 2021-08 00:00: 00 Yes [id number] ADMINISTER 62 UNITS UNDER THE SKIN THREE TIMES DAILY [facility] insulin degludec (TRESIBA FLEXTOUCH U-200) 200 unit/mL (3 mL) [facility] 2021-08 00:00: 00 Yes [id number] ADMINISTER 62 UNITS UNDER THE SKIN THREE TIMES DAILY [facility] insulin degludec (TRESIBA FLEXTOUCH U-200) 200 unit/mL (3 mL) In 2021-08 00:00: 00 Yes [id number] ADMINISTER 62 UNITS UNDER THE SKIN THREE TIMES DAILY [facility] insulin degludec (TRESIBA FLEXTOUCH U-200) 200 unit/mL (3 mL) InPn 2021-08 00:00: 00 Yes [id number] ADMINISTER 62 UNITS UNDER THE SKIN THREE TIMES DAILY [facility] insulin degludec (TRESIBA FLEXTOUCH U-200) 200 unit/mL (3 mL) In 2021-08 00:00: 00 Yes [id number] ADMINISTER 62 UNITS UNDER THE SKIN THREE TIMES DAILY [facility] insulin degludec (TRESIBA FLEXTOUCH U-200) 200 unit/mL (3 mL) In 2021-08 00:00: 00 Yes [id number] ADMINISTER 62 UNITS UNDER THE SKIN THREE TIMES DAILY [facility] insulin degludec (TRESIBA FLEXTOUCH U-200) 200 unit/mL (3 mL) In 2021-08 00:00: 00 Yes [id number] ADMINISTER 62 UNITS UNDER THE SKIN THREE TIMES DAILY [facility] insulin degludec (TRESIBA FLEXTOUCH U-200) 200 unit/mL (3 mL) In 2021-08 00:00: 00 Yes [id number] ADMINISTER 62 UNITS UNDER THE SKIN THREE TIMES DAILY [facility] insulin degludec (TRESIBA FLEXTOUCH U-200) 200 unit/mL (3 mL) In 2021-08 00:00: 00 Yes [id number] ADMINISTER 62 UNITS UNDER THE SKIN THREE TIMES DAILY [facility] insulin degludec (TRESIBA FLEXTOUCH U-200) 200 unit/mL (3 mL) In 2021-08 00:00: 00 Yes [id number] ADMINISTER 62 UNITS UNDER THE SKIN THREE TIMES DAILY [facility] insulin degludec (TRESIBA FLEXTOUCH U-200) 200 unit/mL (3 mL) In 2021-08 00:00: 00 Yes [id number] ADMINISTER 62 UNITS UNDER THE SKIN THREE TIMES DAILY [facility] insulin degludec (TRESIBA FLEXTOUCH U-200) 200 unit/mL (3 mL) In 2021-08 00:00: 00 Yes [id number] ADMINISTER 62 UNITS UNDER THE SKIN THREE TIMES DAILY [facility] insulin degludec (TRESIBA FLEXTOUCH U-200) 200 unit/mL (3 mL) [facility] 2021-08 00:00: 00 Yes [id number] ADMINISTER 62 UNITS UNDER THE SKIN THREE TIMES DAILY [facility] insulin degludec (TRESIBA FLEXTOUCH U-200) 200 unit/mL (3 mL) [facility] 2021-08 00:00: 00 Yes [id number] ADMINISTER 62 UNITS UNDER THE SKIN THREE TIMES DAILY [facility] insulin degludec (TRESIBA FLEXTOUCH U-200) 200 unit/mL (3 mL) [facility] 2021-08 00:00: 00 Yes [id number] ADMINISTER 62 UNITS UNDER THE SKIN THREE TIMES DAILY [facility] insulin degludec (TRESIBA FLEXTOUCH U-200) 200 unit/mL (3 mL) [facility] 2021-08 00:00: 00 Yes [id number] ADMINISTER 62 UNITS UNDER THE SKIN THREE TIMES DAILY [facility] insulin degludec (TRESIBA FLEXTOUCH U-200) 200 unit/mL (3 mL) [facility] 2021-08 00:00: 00 Yes [id number] ADMINISTER 62 UNITS UNDER THE SKIN THREE TIMES DAILY [facility] insulin degludec (TRESIBA FLEXTOUCH U-200) 200 unit/mL (3 mL) [facility] 2021-08 00:00: 00 Yes [id number] ADMINISTER 62 UNITS UNDER THE SKIN THREE TIMES DAILY [facility] insulin degludec (TRESIBA FLEXTOUCH U-200) 200 unit/mL (3 mL) [facility] 2021-08 00:00: 00 Yes [id number] ADMINISTER 62 UNITS UNDER THE SKIN THREE TIMES DAILY [facility] insulin degludec (TRESIBA FLEXTOUCH U-200) 200 unit/mL (3 mL) [facility] 2021-08 00:00: 00 Yes [id number] ADMINISTER 62 UNITS UNDER THE SKIN THREE TIMES DAILY [facility] insulin degludec (TRESIBA FLEXTOUCH U-200) 200 unit/mL (3 mL) [facility] 2021-08 00:00: 00 Yes [id number] ADMINISTER 62 UNITS UNDER THE SKIN THREE TIMES DAILY [facility] insulin degludec (TRESIBA FLEXTOUCH U-200) 200 unit/mL (3 mL) In 2021-08 00:00: 00 Yes [id number] ADMINISTER 62 UNITS UNDER THE SKIN THREE TIMES DAILY [facility] insulin degludec (TRESIBA FLEXTOUCH U-200) 200 unit/mL (3 mL) In 2021-08 00:00: 00 Yes [id number] ADMINISTER 62 UNITS UNDER THE SKIN THREE TIMES DAILY [facility] insulin degludec (TRESIBA FLEXTOUCH U-200) 200 unit/mL (3 mL) In 2021-08 00:00: 00 Yes [id number] ADMINISTER 62 UNITS UNDER THE SKIN THREE TIMES DAILY [facility] insulin degludec (TRESIBA FLEXTOUCH U-200) 200 unit/mL (3 mL) [facility] 2021-08 00:00: 00 Yes [id number] ADMINISTER 62 UNITS UNDER THE SKIN THREE TIMES DAILY [facility] insulin degludec (TRESIBA FLEXTOUCH U-200) 200 unit/mL (3 mL) [facility] 2021-08 00:00: 00 Yes [id number] ADMINISTER 62 UNITS UNDER THE SKIN THREE TIMES DAILY [facility] insulin degludec (TRESIBA FLEXTOUCH U-200) 200 unit/mL (3 mL) [facility] 2021-08 00:00: 00 Yes [id number] ADMINISTER 62 UNITS UNDER THE SKIN THREE TIMES DAILY [facility] insulin degludec (TRESIBA FLEXTOUCH U-200) 200 unit/mL (3 mL) [facility] 2021-08 00:00: 00 Yes [id number] ADMINISTER 62 UNITS UNDER THE SKIN THREE TIMES DAILY [facility] insulin degludec (TRESIBA FLEXTOUCH U-200) 200 unit/mL (3 mL) In 2021-08 00:00: 00 Yes [id number] ADMINISTER 62 UNITS UNDER THE SKIN THREE TIMES DAILY [facility] insulin degludec (TRESIBA FLEXTOUCH U-200) 200 unit/mL (3 mL) [facility] 2021-08 00:00: 00 Yes [id number] ADMINISTER 62 UNITS UNDER THE SKIN THREE TIMES DAILY [facility] insulin degludec (TRESIBA FLEXTOUCH U-200) 200 unit/mL (3 mL) In 2021-08 00:00: 00 Yes [id number] ADMINISTER 62 UNITS UNDER THE SKIN THREE TIMES DAILY [facility] insulin degludec (TRESIBA FLEXTOUCH U-200) 200 unit/mL (3 mL) [facility] 2021-08 00:00: 00 Yes [id number] ADMINISTER 62 UNITS UNDER THE SKIN THREE TIMES DAILY [facility] insulin degludec (TRESIBA FLEXTOUCH U-200) 200 unit/mL (3 mL) [facility] 2021-08 00:00: 00 Yes [id number] ADMINISTER 62 UNITS UNDER THE SKIN THREE TIMES DAILY [facility] insulin degludec (TRESIBA FLEXTOUCH U-200) 200 unit/mL (3 mL) [facility] 2021-08 00:00: 00 Yes [id number] ADMINISTER 62 UNITS UNDER THE SKIN THREE TIMES DAILY [facility] insulin degludec (TRESIBA FLEXTOUCH U-200) 200 unit/mL (3 mL) [facility] 2021-08 00:00: 00 Yes [id number] ADMINISTER 62 UNITS UNDER THE SKIN THREE TIMES DAILY [facility] insulin degludec (TRESIBA FLEXTOUCH U-200) 200 unit/mL (3 mL) [facility] 2021-08 00:00: 00 Yes [id number] ADMINISTER 62 UNITS UNDER THE SKIN THREE TIMES DAILY [facility] insulin degludec (TRESIBA FLEXTOUCH U-200) 200 unit/mL (3 mL) [facility] 2021-08 00:00: 00 Yes [id number] ADMINISTER 62 UNITS UNDER THE SKIN THREE TIMES DAILY [facility] insulin degludec (TRESIBA FLEXTOUCH U-200) 200 unit/mL (3 mL) [facility] 2021-08 00:00: 00 Yes [id number] ADMINISTER 62 UNITS UNDER THE SKIN THREE TIMES DAILY [facility] insulin degludec (TRESIBA FLEXTOUCH U-200) 200 unit/mL (3 mL) [facility] 2021-08 00:00: 00 Yes [id number] ADMINISTER 62 UNITS UNDER THE SKIN THREE TIMES DAILY [facility] insulin degludec (TRESIBA FLEXTOUCH U-200) 200 unit/mL (3 mL) [facility] 2021-08 00:00: 00 Yes [id number] ADMINISTER 62 UNITS UNDER THE SKIN THREE TIMES DAILY [facility] insulin degludec (TRESIBA FLEXTOUCH U-200) 200 unit/mL (3 mL) [facility] 2021-08 00:00: 00 Yes [id number] ADMINISTER 62 UNITS UNDER THE SKIN THREE TIMES DAILY [facility] insulin degludec (TRESIBA FLEXTOUCH U-200) 200 unit/mL (3 mL) [facility] 2021-08 00:00: 00 Yes [id number] ADMINISTER 62 UNITS UNDER THE SKIN THREE TIMES DAILY [facility] insulin degludec (TRESIBA FLEXTOUCH U-200) 200 unit/mL (3 mL) [facility] 2021-08 00:00: 00 Yes [id number] ADMINISTER 62 UNITS UNDER THE SKIN THREE TIMES DAILY [facility] insulin degludec (TRESIBA FLEXTOUCH U-200) 200 unit/mL (3 mL) [facility] 2021-08 00:00: 00 Yes [id number] ADMINISTER 62 UNITS UNDER THE SKIN THREE TIMES DAILY [facility] insulin degludec (TRESIBA FLEXTOUCH U-200) 200 unit/mL (3 mL) [facility] 2021-08 00:00: 00 Yes [id number] ADMINISTER 62 UNITS UNDER THE SKIN THREE TIMES DAILY [facility] insulin degludec (TRESIBA FLEXTOUCH U-200) 200 unit/mL (3 mL) In 2021-08 00:00: 00 Yes [id number] ADMINISTER 62 UNITS UNDER THE SKIN THREE TIMES DAILY [facility] insulin degludec (TRESIBA FLEXTOUCH U-200) 200 unit/mL (3 mL) [facility] 2021-08 00:00: 00 Yes [id number] ADMINISTER 62 UNITS UNDER THE SKIN THREE TIMES DAILY [facility] insulin degludec (TRESIBA FLEXTOUCH U-200) 200 unit/mL (3 mL) In 2021-08 00:00: 00 Yes [id number] ADMINISTER 62 UNITS UNDER THE SKIN THREE TIMES DAILY [facility] insulin degludec (TRESIBA FLEXTOUCH U-200) 200 unit/mL (3 mL) In 2021-08 00:00: 00 Yes [id number] ADMINISTER 62 UNITS UNDER THE SKIN THREE TIMES DAILY [facility] insulin degludec (TRESIBA FLEXTOUCH U-200) 200 unit/mL (3 mL) In 2021-08 00:00: 00 Yes [id number] ADMINISTER 62 UNITS UNDER THE SKIN THREE TIMES DAILY [facility] insulin degludec (TRESIBA FLEXTOUCH U-200) 200 unit/mL (3 mL) [facility] 2021-08 00:00: 00 Yes [id number] ADMINISTER 62 UNITS UNDER THE SKIN THREE TIMES DAILY [facility] insulin degludec (TRESIBA FLEXTOUCH U-200) 200 unit/mL (3 mL) [facility] 2021-08 00:00: 00 Yes [id number] ADMINISTER 62 UNITS UNDER THE SKIN THREE TIMES DAILY [facility] insulin degludec (TRESIBA FLEXTOUCH U-200) 200 unit/mL (3 mL) [facility] 2021-08 00:00: 00 Yes [id number] ADMINISTER 62 UNITS UNDER THE SKIN THREE TIMES DAILY [facility] insulin degludec (TRESIBA FLEXTOUCH U-200) 200 unit/mL (3 mL) In 2021-08 00:00: 00 Yes [id number] ADMINISTER 62 UNITS UNDER THE SKIN THREE TIMES DAILY [facility] insulin degludec (TRESIBA FLEXTOUCH U-200) 200 unit/mL (3 mL) [facility] 2021-08 00:00: 00 Yes [id number] ADMINISTER 62 UNITS UNDER THE SKIN THREE TIMES DAILY [facility] insulin degludec (TRESIBA FLEXTOUCH U-200) 200 unit/mL (3 mL) In 2021-08 00:00: 00 Yes [id number] ADMINISTER 62 UNITS UNDER THE SKIN THREE TIMES DAILY [facility] insulin degludec (TRESIBA FLEXTOUCH U-200) 200 unit/mL (3 mL) In 2021-08 00:00: 00 Yes [id number] ADMINISTER 62 UNITS UNDER THE SKIN THREE TIMES DAILY [facility] insulin degludec (TRESIBA FLEXTOUCH U-200) 200 unit/mL (3 mL) [facility] 2021-08 00:00: 00 Yes [id number] ADMINISTER 62 UNITS UNDER THE SKIN THREE TIMES DAILY [facility] insulin degludec (TRESIBA FLEXTOUCH U-200) 200 unit/mL (3 mL) [facility] 2021-08 00:00: 00 Yes [id number] ADMINISTER 62 UNITS UNDER THE SKIN THREE TIMES DAILY [facility] insulin degludec (TRESIBA FLEXTOUCH U-200) 200 unit/mL (3 mL) [facility] 2021-08 00:00: 00 Yes [id number] ADMINISTER 62 UNITS UNDER THE SKIN THREE TIMES DAILY [facility] insulin degludec (TRESIBA FLEXTOUCH U-200) 200 unit/mL (3 mL) [facility] 2021-08 00:00: 00 Yes [id number] ADMINISTER 62 UNITS UNDER THE SKIN THREE TIMES DAILY [facility] insulin degludec (TRESIBA FLEXTOUCH U-200) 200 unit/mL (3 mL) In 2021-08 00:00: 00 Yes [id number] ADMINISTER 62 UNITS UNDER THE SKIN THREE TIMES DAILY [facility] insulin degludec (TRESIBA FLEXTOUCH U-200) 200 unit/mL (3 mL) In 2021-08 00:00: 00 Yes [id number] ADMINISTER 62 UNITS UNDER THE SKIN THREE TIMES DAILY [facility] insulin degludec (TRESIBA FLEXTOUCH U-200) 200 unit/mL (3 mL) In 2021-08 00:00: 00 Yes [id number] ADMINISTER 62 UNITS UNDER THE SKIN THREE TIMES DAILY [facility] insulin degludec (TRESIBA FLEXTOUCH U-200) 200 unit/mL (3 mL) In 2021-08 00:00: 00 Yes [id number] ADMINISTER 62 UNITS UNDER THE SKIN THREE TIMES DAILY [facility] insulin degludec (TRESIBA FLEXTOUCH U-200) 200 unit/mL (3 mL) In 2021-08 00:00: 00 Yes [id number] ADMINISTER 62 UNITS UNDER THE SKIN THREE TIMES DAILY [facility] insulin degludec (TRESIBA FLEXTOUCH U-200) 200 unit/mL (3 mL) In 2021-08 00:00: 00 Yes [id number] ADMINISTER 62 UNITS UNDER THE SKIN THREE TIMES DAILY [facility] insulin degludec (TRESIBA FLEXTOUCH U-200) 200 unit/mL (3 mL) In 2021-08 00:00: 00 Yes [id number] ADMINISTER 62 UNITS UNDER THE SKIN THREE TIMES DAILY [facility] insulin degludec (TRESIBA FLEXTOUCH U-200) 200 unit/mL (3 mL) [facility] 2021-08 00:00: 00 Yes [id number] ADMINISTER 62 UNITS UNDER THE SKIN THREE TIMES DAILY [facility] insulin degludec (TRESIBA FLEXTOUCH U-200) 200 unit/mL (3 mL) [facility] 2021-08 00:00: 00 Yes [id number] ADMINISTER 62 UNITS UNDER THE SKIN THREE TIMES DAILY [facility] insulin degludec (TRESIBA FLEXTOUCH U-200) 200 unit/mL (3 mL) In 2021-08 00:00: 00 Yes [id number] ADMINISTER 62 UNITS UNDER THE SKIN THREE TIMES DAILY [facility] insulin degludec (TRESIBA FLEXTOUCH U-200) 200 unit/mL (3 mL) [facility] 2021-08 00:00: 00 Yes [id number] ADMINISTER 62 UNITS UNDER THE SKIN THREE TIMES DAILY [facility] insulin degludec (TRESIBA FLEXTOUCH U-200) 200 unit/mL (3 mL) In 2021-08 00:00: 00 Yes [id number] ADMINISTER 62 UNITS UNDER THE SKIN THREE TIMES DAILY [facility] insulin degludec (TRESIBA FLEXTOUCH U-200) 200 unit/mL (3 mL) In 2021-08 00:00: 00 Yes [id number] ADMINISTER 62 UNITS UNDER THE SKIN THREE TIMES DAILY [facility] insulin degludec (TRESIBA FLEXTOUCH U-200) 200 unit/mL (3 mL) [facility] 2021-08 00:00: 00 Yes [id number] ADMINISTER 62 UNITS UNDER THE SKIN THREE TIMES DAILY [facility] insulin degludec (TRESIBA FLEXTOUCH U-200) 200 unit/mL (3 mL) [facility] 2021-08 00:00: 00 Yes [id number] ADMINISTER 62 UNITS UNDER THE SKIN THREE TIMES DAILY [facility] insulin degludec (TRESIBA FLEXTOUCH U-200) 200 unit/mL (3 mL) [facility] 2021-08 00:00: 00 Yes [id number] ADMINISTER 62 UNITS UNDER THE SKIN THREE TIMES DAILY [facility] insulin degludec (TRESIBA FLEXTOUCH U-200) 200 unit/mL (3 mL) [facility] 2021-08 00:00: 00 Yes [id number] ADMINISTER 62 UNITS UNDER THE SKIN THREE TIMES DAILY [facility] insulin degludec (TRESIBA FLEXTOUCH U-200) 200 unit/mL (3 mL) [facility] 2021-08 00:00: 00 Yes [id number] ADMINISTER 62 UNITS UNDER THE SKIN THREE TIMES DAILY [facility] insulin degludec (TRESIBA FLEXTOUCH U-200) 200 unit/mL (3 mL) [facility] 2021-08 00:00: 00 Yes [id number] ADMINISTER 62 UNITS UNDER THE SKIN THREE TIMES [facility] (TRESIBA FLEXTOUCH U-200) 200 unit/mL (3 mL) In 2021-08 00:00: 00 Yes [id number] ADMINISTER 62 UNITS UNDER THE SKIN THREE TIMES DAILY [facility] insulin degludec (TRESIBA FLEXTOUCH U-200) 200 unit/mL (3 mL) In 2021-08 00:00: 00 Yes [id number] ADMINISTER 62 UNITS UNDER THE SKIN THREE TIMES DAILY [facility] degludec (TRESIBA FLEXTOUCH U-200) 200 unit/mL (3 mL) In 2021-08 00:00: 00 Yes [id number] ADMINISTER 62 UNITS UNDER THE SKIN THREE TIMES DAILY [facility] insulin degludec (TRESIBA FLEXTOUCH U-200) 200 unit/mL (3 mL) In 2021-08 00:00: 00 Yes [id number] ADMINISTER 62 UNITS UNDER THE SKIN THREE TIMES DAILY [facility] insulin degludec (TRESIBA FLEXTOUCH U-200) 200 unit/mL (3 mL) In 2021-08 00:00: 00 Yes [id number] ADMINISTER 62 UNITS UNDER THE SKIN THREE TIMES DAILY [facility] insulin degludec (TRESIBA FLEXTOUCH U-200) 200 unit/mL (3 mL) [facility] 2021-08 00:00: 00 Yes [id number] ADMINISTER 62 UNITS UNDER THE SKIN THREE TIMES DAILY [facility] insulin degludec (TRESIBA FLEXTOUCH U-200) 200 unit/mL (3 mL) In 2021-08 00:00: 00 Yes [id number] ADMINISTER 62 UNITS UNDER THE SKIN THREE TIMES DAILY [facility] insulin degludec (TRESIBA FLEXTOUCH U-200) 200 unit/mL (3 mL) In 2021-08 00:00: 00 Yes [id number] ADMINISTER 62 UNITS UNDER THE SKIN THREE TIMES DAILY [facility] insulin degludec (TRESIBA FLEXTOUCH U-200) 200 unit/mL (3 mL) [facility] 2021-08 00:00: 00 Yes [id number] ADMINISTER 62 UNITS UNDER THE SKIN THREE TIMES DAILY [facility] insulin degludec (TRESIBA FLEXTOUCH U-200) 200 unit/mL (3 mL) In 2021-08 00:00: 00 Yes [id number] ADMINISTER 62 UNITS UNDER THE SKIN THREE TIMES DAILY [facility] insulin degludec (TRESIBA FLEXTOUCH U-200) 200 unit/mL (3 mL) In 2021-08 00:00: 00 Yes [id number] ADMINISTER 62 UNITS UNDER THE SKIN THREE TIMES DAILY [facility] insulin degludec (TRESIBA FLEXTOUCH U-200) 200 unit/mL (3 mL) [facility] 2021-08 00:00: 00 Yes [id number] ADMINISTER 62 UNITS UNDER THE SKIN THREE TIMES DAILY [facility] insulin degludec (TRESIBA FLEXTOUCH U-200) 200 unit/mL (3 mL) [facility] 2021-08 00:00: 00 Yes [id number] ADMINISTER 62 UNITS UNDER THE SKIN THREE TIMES DAILY [facility] insulin degludec (TRESIBA FLEXTOUCH U-200) 200 unit/mL (3 mL) [facility] 2021-08 00:00: 00 Yes [id number] ADMINISTER 62 UNITS UNDER THE SKIN THREE TIMES DAILY [facility] insulin degludec (TRESIBA FLEXTOUCH U-200) 200 unit/mL (3 mL) [facility] 2021-08 00:00: 00 Yes [id number] ADMINISTER 62 UNITS UNDER THE SKIN THREE TIMES DAILY [facility] insulin degludec (TRESIBA FLEXTOUCH U-200) 200 unit/mL (3 mL) [facility] 2021-08 00:00: 00 Yes [id number] ADMINISTER 62 UNITS UNDER THE SKIN THREE TIMES DAILY [facility] insulin degludec (TRESIBA FLEXTOUCH U-200) 200 unit/mL (3 mL) [facility] 2021-08 00:00: 00 Yes [id number] ADMINISTER 62 UNITS UNDER THE SKIN THREE TIMES DAILY [facility] insulin degludec (TRESIBA FLEXTOUCH U-200) 200 unit/mL (3 mL) In 2021-08 00:00: 00 Yes [id number] ADMINISTER 62 UNITS UNDER THE SKIN THREE TIMES DAILY [facility] insulin degludec (TRESIBA FLEXTOUCH U-200) 200 unit/mL (3 mL) In 2021-08 00:00: 00 Yes [id number] ADMINISTER 62 UNITS UNDER THE SKIN THREE TIMES DAILY [facility] insulin degludec (TRESIBA FLEXTOUCH U-200) 200 unit/mL (3 mL) In 2021-08 00:00: 00 Yes [id number] ADMINISTER 62 UNITS UNDER THE SKIN THREE TIMES DAILY [facility]ec (TRESIBA FLEXTOUCH U-200) 200 unit/mL (3 mL) In 2021-08 00:00: 00 Yes [id number] ADMINISTER 62 UNITS UNDER THE SKIN THREE TIMES DAILY [facility] insulin degludec (TRESIBA FLEXTOUCH U-200) 200 unit/mL (3 mL) [facility] 2021-08 00:00: 00 Yes [id number] ADMINISTER 62 UNITS UNDER THE SKIN THREE TIMES DAILY [facility] insulin degludec (TRESIBA FLEXTOUCH U-200) 200 unit/mL (3 mL) [facility] 2021-08 00:00: 00 Yes [id number] ADMINISTER 62 UNITS UNDER THE SKIN THREE TIMES DAILY [facility] insulin degludec (TRESIBA FLEXTOUCH U-200) 200 unit/mL (3 mL) In 2021-08 00:00: 00 Yes [id number] ADMINISTER 62 UNITS UNDER THE SKIN THREE TIMES DAILY [facility] insulin degludec (TRESIBA FLEXTOUCH U-200) 200 unit/mL (3 mL) In 2021-08 00:00: 00 Yes [id number] ADMINISTER 62 UNITS UNDER THE SKIN THREE TIMES DAILY [facility] insulin degludec (TRESIBA FLEXTOUCH U-200) 200 unit/mL (3 mL) [facility] 2021-08 00:00: 00 Yes [id number] ADMINISTER 62 UNITS UNDER THE SKIN THREE TIMES DAILY [facility] insulin degludec (TRESIBA FLEXTOUCH U-200) 200 unit/mL (3 mL) In 2021-08 00:00: 00 Yes [id number] ADMINISTER 62 UNITS UNDER THE SKIN THREE TIMES DAILY [facility] insulin degludec (TRESIBA FLEXTOUCH U-200) 200 unit/mL (3 mL) In 2021-08 00:00: 00 Yes [id number] ADMINISTER 62 UNITS UNDER THE SKIN THREE TIMES DAILY [facility] insulin degludec (TRESIBA FLEXTOUCH U-200) 200 unit/mL (3 mL) In 2021-08 00:00: 00 Yes [id number] ADMINISTER 62 UNITS UNDER THE SKIN THREE TIMES DAILY [facility] insulin degludec (TRESIBA FLEXTOUCH U-200) 200 unit/mL (3 mL) In 2021-08 00:00: 00 Yes [id number] ADMINISTER 62 UNITS UNDER THE SKIN THREE TIMES DAILY [facility] insulin degludec (TRESIBA FLEXTOUCH U-200) 200 unit/mL (3 mL) [facility] 2021-08 00:00: 00 Yes [id number] ADMINISTER 62 UNITS UNDER THE SKIN THREE TIMES DAILY [facility] insulin degludec (TRESIBA FLEXTOUCH U-200) 200 unit/mL (3 mL) [facility] 2021-08 00:00: 00 Yes [id number] ADMINISTER 62 UNITS UNDER THE SKIN THREE TIMES DAILY [facility] insulin degludec (TRESIBA FLEXTOUCH U-200) 200 unit/mL (3 mL) In 2021-08 00:00: 00 Yes [id number] ADMINISTER 62 UNITS UNDER THE SKIN THREE TIMES DAILY [facility] insulin degludec (TRESIBA FLEXTOUCH U-200) 200 unit/mL (3 mL) [facility] 2021-08 00:00: 00 Yes [id number] ADMINISTER 62 UNITS UNDER THE SKIN THREE TIMES DAILY [facility] insulin degludec (TRESIBA FLEXTOUCH U-200) 200 unit/mL (3 mL) [facility] 2021-08 00:00: 00 Yes [id number] ADMINISTER 62 UNITS UNDER THE SKIN THREE TIMES DAILY [facility] insulin degludec (TRESIBA FLEXTOUCH U-200) 200 unit/mL (3 mL) [facility] 2021-08 00:00: 00 Yes [id number] ADMINISTER 62 UNITS UNDER THE SKIN THREE TIMES DAILY [facility] insulin degludec (TRESIBA FLEXTOUCH U-200) 200 unit/mL (3 mL) [facility] 2021-08 00:00: 00 Yes [id number] ADMINISTER 62 UNITS UNDER THE SKIN THREE TIMES DAILY [facility] insulin degludec (TRESIBA FLEXTOUCH U-200) 200 unit/mL (3 mL) [facility] 2021-08 00:00: 00 Yes [id number] ADMINISTER 62 UNITS UNDER THE SKIN THREE TIMES DAILY [facility] insulin degludec (TRESIBA FLEXTOUCH U-200) 200 unit/mL (3 mL) [facility] 2021-08 00:00: 00 07-10 00:00 :00 No [id number] ADMINISTER 62 UNITS UNDER THE SKIN THREE TIMES DAILY [facility] insulin degludec (TRESIBA FLEXTOUCH U-200) 200 unit/mL (3 mL) [facility] 2021-08 00:00: 00 07-10 00:00 :00 No [id number] ADMINISTER 62 UNITS UNDER THE SKIN THREE TIMES DAILY [facility] HYDROcodone -acetaminop hen 7.5-325 mg per tablet 2021-08 00:00: 00 Yes [id number] 1{tbl} Take 1 tablet by mouth every 6 (six) hours as needed for Pain. Indication s: chronic pain [facility] HYDROcodone -acetaminop hen 7.5-325 mg per tablet 2021-08 00:00: 00 Yes 2745 1{tbl} Take 1 tablet by mouth every 6 (six) hours as needed for Pain. Indication s: chronic pain [facility] HYDROcodone -acetaminop hen 7.5-325 mg per tablet 2021-08 00:00: 00 Yes 2745 1{tbl} Take 1 tablet by mouth every 6 (six) hours as needed for Pain. Indication s: chronic pain [facility] HYDROcodone -acetaminop hen 7.5-325 mg per tablet 2021-08 00:00: 00 Yes 2745 1{tbl} Take 1 tablet by mouth every 6 (six) hours as needed for Pain. Indication s: chronic pain [facility] HYDROcodone -acetaminop hen 7.5-325 mg per tablet 2021-08 00:00: 00 Yes 2745 1{tbl} Take 1 tablet by mouth every 6 (six) hours as needed for Pain. Indication s: chronic pain [facility] HYDROcodone -acetaminop hen 7.5-325 mg per tablet 2021-08 00:00: 00 Yes 2745 1{tbl} Take 1 tablet by mouth every 6 (six) hours as needed for Pain. Indication s: chronic pain [facility] HYDROcodone -acetaminop hen 7.5-325 mg per tablet 2021-08 00:00: 00 Yes 2745 1{tbl} Take 1 tablet by mouth every 6 (six) hours as needed for Pain. Indication s: chronic pain [facility] HYDROcodone -acetaminop hen 7.5-325 mg per tablet 2021-08 00:00: 00 Yes 2745 1{tbl} Take 1 tablet by mouth every 6 (six) hours as needed for Pain. Indication s: chronic pain [facility] HYDROcodone -acetaminop hen 7.5-325 mg per tablet 2021-08 00:00: 00 Yes 2745 1{tbl} Take 1 tablet by mouth every 6 (six) hours as needed for Pain. Indication s: chronic pain [facility] HYDROcodone -acetaminop hen 7.5-325 mg per tablet 2021-08 00:00: 00 Yes 2745 1{tbl} Take 1 tablet by mouth every 6 (six) hours as needed for Pain. Indication s: chronic pain [facility] HYDROcodone -acetaminop hen 7.5-325 mg per tablet 2021-08 00:00: 00 Yes 2745 1{tbl} Take 1 tablet by mouth every 6 (six) hours as needed for Pain. Indication s: chronic pain [facility] HYDROcodone -acetaminop hen 7.5-325 mg per tablet 2021-08 00:00: 00 Yes 2745 1{tbl} Take 1 tablet by mouth every 6 (six) hours as needed for Pain. Indication s: chronic pain [facility] HYDROcodone -acetaminop hen 7.5-325 mg per tablet 2021-08 00:00: 00 Yes 2745 1{tbl} Take 1 tablet by mouth every 6 (six) hours as needed for Pain. Indication s: chronic pain [facility] HYDROcodone -acetaminop hen 7.5-325 mg per tablet 2021-08 00:00: 00 Yes 2745 1{tbl} Take 1 tablet by mouth every 6 (six) hours as needed for Pain. Indication s: chronic pain [facility] HYDROcodone -acetaminop hen 7.5-325 mg per tablet 2021-08 00:00: 00 Yes 2745 1{tbl} Take 1 tablet by mouth every 6 (six) hours as needed for Pain. Indication s: chronic pain [facility] HYDROcodone -acetaminop hen 7.5-325 mg per tablet 2021-08 00:00: 00 Yes 2745 1{tbl} Take 1 tablet by mouth every 6 (six) hours as needed for Pain. Indication s: chronic pain [facility] HYDROcodone -acetaminop hen 7.5-325 mg per tablet 2021-08 00:00: 00 Yes 2745 1{tbl} Take 1 tablet by mouth every 6 (six) hours as needed for Pain. Indication s: chronic pain [facility] HYDROcodone -acetaminop hen 7.5-325 mg per tablet 2021-08 00:00: 00 Yes 2745 1{tbl} Take 1 tablet by mouth every 6 (six) hours as needed for Pain. Indication s: chronic pain [facility] HYDROcodone -acetaminop hen 7.5-325 mg per tablet 2021-08 00:00: 00 Yes 2745 1{tbl} Take 1 tablet by mouth every 6 (six) hours as needed for Pain. Indication s: chronic pain [facility] HYDROcodone -acetaminop hen 7.5-325 mg per tablet 2021-08 00:00: 00 Yes 2745 1{tbl} Take 1 tablet by mouth every 6 (six) hours as needed for Pain. Indication s: chronic pain [facility] HYDROcodone -acetaminop hen 7.5-325 mg per tablet 2021-08 00:00: 00 Yes 2745 1{tbl} Take 1 tablet by mouth every 6 (six) hours as needed for Pain. Indication s: chronic pain [facility] HYDROcodone -acetaminop hen 7.5-325 mg per tablet 2021-08 00:00: 00 Yes 2745 1{tbl} Take 1 tablet by mouth every 6 (six) hours as needed for Pain. Indication s: chronic pain [facility] HYDROcodone -acetaminop hen 7.5-325 mg per tablet 2021-08 00:00: 00 07-02 00:00 :00 No 2745 1{tbl} Take 1 tablet by mouth every 6 (six) hours as needed for Pain. Indication s: chronic pain [facility] HYDROcodone -acetaminop hen 7.5-325 mg per tablet 2021-08 00:00: 00 07-02 00:00 :00 No 2745 1{tbl} Take 1 tablet by mouth every 6 (six) hours as needed for Pain. Indication s: chronic pain [facility] AMLODIPINE 5 mg tablet 2021-08 00:00: 00 Yes [id number] 5mg TAKE 1 TABLET BY MOUTH DAILY [facility] AMLODIPINE 5 mg tablet 2021-08 00:00: 00 Yes [id number] 5mg TAKE 1 TABLET BY MOUTH DAILY [facility] tablet 2021-08 00:00: 00 Yes [id number] 5mg TAKE 1 TABLET BY MOUTH DAILY [facility] AMLODIPINE 5 mg tablet 2021-08 00:00: 00 Yes [id number] 5mg TAKE 1 TABLET BY MOUTH DAILY [facility] AMLODIPINE 5 mg tablet 2021-08 00:00: 00 Yes [id number] 5mg TAKE 1 TABLET BY MOUTH DAILY [facility] mg tablet 2021-08 00:00: 00 06-10 00:00 :00 No [id number] 5mg TAKE 1 TABLET BY MOUTH DAILY [facility] AML[facility] mg tablet 2021-08 00:00: 00 06-10 00:00 :00 No [id number] 5mg TAKE 1 TABLET BY MOUTH DAILY [facility] AML[facility] mg tablet 2021-08 00:00: 00 06-10 00:00 :00 No [id number] 5mg TAKE 1 TABLET BY MOUTH DAILY [facility] TIZANIDINE 4 mg tablet 2021-08 00:00: 00 Yes [id number] TAKE 1 TABLET BY MOUTH EVERY 8 HOURS NEEDED [facility] TIZ[facility] mg tablet 2021-08 00:00: 00 Yes [id number] TAKE 1 TABLET BY MOUTH EVERY 8 HOURS NEEDED [facility] TIZ[facility] mg tablet 2021-08 00:00: 00 Yes [id number] TAKE 1 TABLET BY MOUTH EVERY 8 HOURS NEEDED [facility] TIZ[facility] mg tablet 2021-08 024 00:00: 00 Yes [id number] TAKE 1 TABLET BY MOUTH EVERY 8 HOURS NEEDED [facility] TIZ[facility] mg tablet 2021-08 024 00:00: 00 Yes [id number] TAKE 1 TABLET BY MOUTH EVERY 8 HOURS NEEDED [facility] T[facility] mg tablet 2021-08 0-24 00:00: 00 Yes [id number] TAKE 1 TABLET BY MOUTH EVERY 8 HOURS NEEDED [facility] T[facility] mg tablet 2021- 024 00:00: 00 Yes [id number] TAKE 1 TABLET BY MOUTH EVERY 8 HOURS NEEDED [facility] TIZANIDINE 4 mg tablet 2021-08 024 00:00: 00 Yes [id number] TAKE 1 TABLET BY MOUTH EVERY 8 HOURS NEEDED [facility] TIZANIDINE 4 mg tablet 2021-08 024 00:00: 00 Yes [id number] TAKE 1 TABLET BY MOUTH EVERY 8 HOURS NEEDED [facility] TIZANIDINE 4 mg tablet 2021-08 024 00:00: 00 Yes [id number] TAKE 1 TABLET BY MOUTH EVERY 8 HOURS NEEDED [facility] TIZANIDINE 4 mg tablet 2021-08 0 00:00: 00 Yes [id number] TAKE 1 TABLET BY MOUTH EVERY 8 HOURS NEEDED [facility] TIZANIDINE 4 mg tablet 2021-08 024 00:00: 00 Yes [id number] TAKE 1 TABLET BY MOUTH EVERY 8 HOURS NEEDED [facility] TIZANIDINE 4 mg tablet 2021-08 0 00:00: 00 Yes [id number] TAKE 1 TABLET BY MOUTH EVERY 8 HOURS NEEDED [facility] TIZANIDINE 4 mg tablet 2021-08 024 00:00: 00 Yes [id number] TAKE 1 TABLET BY MOUTH EVERY 8 HOURS NEEDED [facility] tablet 2021-08 024 00:00: 00 Yes [id number] TAKE 1 TABLET BY MOUTH EVERY 8 HOURS NEEDED [facility] TIZANIDINE 4 mg tablet 2021-08 024 00:00: 00 Yes [id number] TAKE 1 TABLET BY MOUTH EVERY 8 HOURS NEEDED [facility] TIZANIDINE 4 mg tablet 2021-08 024 00:00: 00 Yes [id number] TAKE 1 TABLET BY MOUTH EVERY 8 HOURS NEEDED [facility] TIZANIDINE 4 mg tablet 2021- 024 00:00: 00 Yes [id number] TAKE 1 TABLET BY MOUTH EVERY 8 HOURS NEEDED [facility] TIZANIDINE 4 mg tablet 2021- 0-24 00:00: 00 Yes [id number] TAKE 1 TABLET BY MOUTH EVERY 8 HOURS NEEDED [facility] TIZANIDINE 4 mg tablet 2021- 0-24 00:00: 00 Yes [id number] TAKE 1 TABLET BY MOUTH EVERY 8 HOURS NEEDED [facility] TIZANIDINE 4 mg tablet 2021- 0-24 00:00: 00 Yes [id number] TAKE 1 TABLET BY MOUTH EVERY 8 HOURS NEEDED [facility] TIZANIDINE 4 mg tablet 2021-08 0-24 00:00: 00 Yes [id number] TAKE 1 TABLET BY MOUTH EVERY 8 HOURS NEEDED [facility] TIZANIDINE 4 mg tablet 2021-08 024 00:00: 00 Yes [id number] TAKE 1 TABLET BY MOUTH EVERY 8 HOURS NEEDED [facility] TIZANIDINE 4 mg tablet 2021-08 024 00:00: 00 Yes [id number] TAKE 1 TABLET BY MOUTH EVERY 8 HOURS NEEDED [facility] TIZANIDINE 4 mg tablet 2021-08 024 00:00: 00 Yes [id number] TAKE 1 TABLET BY MOUTH EVERY 8 HOURS NEEDED [facility] [facility] TIZANIDINE 4 mg tablet 2021-08 024 00:00: 00 Yes [id number] TAKE 1 TABLET BY MOUTH EVERY 8 HOURS NEEDED [facility] TIZANIDINE 4 mg tablet 2021-08 024 00:00: 00 Yes [id number] TAKE 1 TABLET BY MOUTH EVERY 8 HOURS NEEDED [facility] TIZANIDINE 4 mg tablet 2021-08 024 00:00: 00 Yes [id number] TAKE 1 TABLET BY MOUTH EVERY 8 HOURS NEEDED [facility] TIZANIDINE 4 mg tablet 2021-08 0-24 00:00: 00 Yes [id number] TAKE 1 TABLET BY MOUTH EVERY 8 HOURS NEEDED [facility] TIZANIDINE 4 mg tablet 2021- 0-24 00:00: 00 Yes [id number] TAKE 1 TABLET BY MOUTH EVERY 8 HOURS NEEDED [facility] TIZANIDINE 4 mg tablet 2021- 0-24 00:00: 00 Yes [id number] TAKE 1 TABLET BY MOUTH EVERY 8 HOURS NEEDED [facility] TIZANIDINE 4 mg tablet 2021- 024 00:00: 00 Yes [id number] TAKE 1 TABLET BY MOUTH EVERY 8 HOURS NEEDED [facility] TIZANIDINE 4 mg tablet 2021-08 024 00:00: 00 Yes [id number] TAKE 1 TABLET BY MOUTH EVERY 8 HOURS NEEDED [facility] TIZANIDINE 4 mg tablet 2021-08 024 00:00: 00 Yes [id number] TAKE 1 TABLET BY MOUTH EVERY 8 HOURS NEEDED [facility] TIZANIDINE 4 mg tablet 2021-08 024 00:00: 00 Yes [id number] TAKE 1 TABLET BY MOUTH EVERY 8 HOURS NEEDED [facility] TIZANIDINE 4 mg tablet 2021-08 0 00:00: 00 Yes [id number] TAKE 1 TABLET BY MOUTH EVERY 8 HOURS NEEDED [facility] TIZANIDINE 4 mg tablet 2021-08 024 00:00: 00 Yes [id number] TAKE 1 TABLET BY MOUTH EVERY 8 HOURS NEEDED [facility] TIZANIDINE 4 mg tablet 2021-08 0 00:00: 00 Yes [id number] TAKE 1 TABLET BY MOUTH EVERY 8 HOURS NEEDED [facility] TIZANIDINE 4 mg tablet 2021-08 024 00:00: 00 Yes [id number] [facility]08 [facility]24 00:00: 00 Yes [id number] TAKE 1 TABLET BY MOUTH EVERY 8 HOURS NEEDED [facility] TIZANIDINE 4 mg tablet 2021-08 024 00:00: 00 Yes [id number] TAKE 1 TABLET BY MOUTH EVERY 8 HOURS NEEDED [facility] TIZANIDINE 4 mg tablet 2021-08 024 00:00: 00 Yes [id number] TAKE 1 TABLET BY MOUTH EVERY 8 HOURS NEEDED [facility] TIZANIDINE 4 mg tablet 2021- 024 00:00: 00 Yes [id number] TAKE 1 TABLET BY MOUTH EVERY 8 HOURS NEEDED [facility] TIZANIDINE 4 mg tablet 2021- 0-24 00:00: 00 Yes [id number] TAKE 1 TABLET BY MOUTH EVERY 8 HOURS NEEDED [facility] TIZANIDINE 4 mg tablet 2021- 0-24 00:00: 00 Yes [id number] TAKE 1 TABLET BY MOUTH EVERY 8 HOURS NEEDED [facility] TIZANIDINE 4 mg tablet 2021- 0-24 00:00: 00 Yes [id number] TAKE 1 TABLET BY MOUTH EVERY 8 HOURS NEEDED [facility] TIZANIDINE 4 mg tablet 2021-08 0-24 00:00: 00 Yes [id number] TAKE 1 TABLET BY MOUTH EVERY 8 HOURS NEEDED [facility] TIZANIDINE 4 mg tablet 2021-08 024 00:00: 00 Yes [id number] TAKE 1 TABLET BY MOUTH EVERY 8 HOURS NEEDED [facility] TIZANIDINE 4 mg tablet 2021-08 024 00:00: 00 Yes [id number] TAKE 1 TABLET BY MOUTH EVERY 8 HOURS NEEDED [facility] TIZANIDINE 4 mg tablet 2021-08 024 00:00: 00 Yes [id number] TAKE 1 TABLET BY MOUTH EVERY 8 HOURS NEEDED [facility] TIZANIDINE 4 mg tablet 2021-08 024 00:00: 00 Yes [id number] TAKE 1 TABLET BY MOUTH EVERY 8 HOURS NEEDED [facility] TIZANIDINE 4 mg tablet 2021-08 024 00:00: 00 Yes [id number] TAKE 1 TABLET BY MOUTH EVERY 8 HOURS NEEDED [facility] TIZANIDINE 4 mg tablet 2021-08 024 00:00: 00 Yes [id number] TAKE 1 TABLET BY MOUTH EVERY 8 HOURS NEEDED [facility] TIZANIDINE 4 mg tablet 2021-08 0-24 00:00: 00 Yes [id number] TAKE 1 TABLET BY MOUTH EVERY 8 HOURS NEEDED [facility] TIZANIDINE 4 mg tablet 2021- 0-24 00:00: 00 Yes [id number] TAKE 1 TABLET BY MOUTH EVERY 8 HOURS NEEDED [facility] TIZANIDINE 4 mg tablet 2021- 0-24 00:00: 00 Yes [id number] TAKE 1 TABLET BY MOUTH EVERY 8 HOURS NEEDED [facility] TIZANIDINE 4 mg tablet 2021-08 024 00:00: 00 08-19 00:00 :00 No [id number] TAKE 1 TABLET BY MOUTH EVERY 8 HOURS NEEDED [facility] ALBUTEROL 90 mcg/actuati on inhaler 2021-08 00:00: 00 Yes [id number] INHALE 2 PUFFS BY MOUTH EVERY 6 HOURS NEEDED FOR WHEEZING, SHORTNESS OF BREATH OR BRONCHOSPA [facility] ALBUTEROL 90 mcg/actuati on inhaler 2021-08 00:00: 00 Yes [id number] INHALE 2 PUFFS BY MOUTH EVERY 6 HOURS NEEDED FOR WHEEZING, SHORTNESS OF BREATH OR BRONCHOSPA [facility] METFORMIN 850 mg tablet 2021-08 00:00: 00 Yes [id number] TAKE 1 TABLET BY MOUTH THREE TIMES DAILY [facility] QUINAPRIL 40 mg tablet 2021-08 00:00: 00 Yes [id number] 40mg TAKE 1 TABLET BY MOUTH EVERY MORNING [facility] GLIPIZIDE XL 5 mg 24 hr tablet 2021-08 00:00: 00 Yes [id number] 5mg TAKE 1 TABLET BY MOUTH DAILY WITH BREAKFAST [facility] amoxicillin 500 mg tablet 2021-08 00:00: 00 Yes [id number] 500mg Take 1 tablet by mouth in the morning and 1 tablet in the evening. [facility] empaglifloz in (JARDIANCE) 10 mg 2021-08 00:00: 00 Yes [id number] 10mg Take 1 tablet by mouth in the morning. [facility] ALBUTEROL 90 mcg/actuati on inhaler 2021-08 00:00: 00 Yes [id number] INHALE 2 PUFFS BY MOUTH EVERY 6 HOURS NEEDED FOR WHEEZING, SHORTNESS OF BREATH OR BRONCHOSPA [facility] QUINAPRIL 40 mg tablet 2021-08 00:00: 00 Yes [id number] 40mg TAKE 1 TABLET BY MOUTH EVERY MORNING [facility] amoxicillin 500 mg tablet 2021-08 00:00: 00 Yes [id number] 500mg Take 1 tablet by mouth in the morning and 1 tablet in the evening. [facility] empaglifloz in (JARDIANCE) 10 mg 2021-08 00:00: 00 Yes [id number] 10mg Take 1 tablet by mouth in the morning. [facility] ALBUTEROL 90 mcg/actuati on inhaler 2021-08 00:00: 00 Yes [id number] INHALE 2 PUFFS BY MOUTH EVERY 6 HOURS NEEDED FOR WHEEZING, SHORTNESS OF BREATH OR BRONCHOSPA [facility] QUINAPRIL 40 mg tablet 2021-08 00:00: 00 Yes [id number] 40mg TAKE 1 TABLET BY MOUTH EVERY MORNING [facility] amoxicillin 500 mg tablet 2021-08 00:00: 00 Yes [id number] 500mg Take 1 tablet by mouth in the morning and 1 tablet in the evening. [facility] empaglifloz in (JARDIANCE) 10 mg 2021-08 00:00: 00 Yes [id number] 10mg Take 1 tablet by mouth in the morning. [facility] QUINAPRIL 40 mg tablet 2021-08 00:00: 00 Yes [id number] 40mg TAKE 1 TABLET BY MOUTH EVERY MORNING [facility] ALBUTEROL 90 mcg/actuati on inhaler 2021-08 00:00: 00 Yes [id number] INHALE 2 PUFFS BY MOUTH EVERY 6 HOURS NEEDED FOR WHEEZING, SHORTNESS OF BREATH OR BRONCHOSPA [facility] METFORMIN 850 mg tablet 2021-08 00:00: 00 Yes [id number] TAKE 1 TABLET BY MOUTH THREE TIMES DAILY [facility] QUINAPRIL 40 mg tablet 2021-08 00:00: 00 Yes [id number] 40mg TAKE 1 TABLET BY MOUTH EVERY MORNING [facility] GLIPIZIDE XL 5 mg 24 hr tablet 2021-08 00:00: 00 Yes [id number] 5mg TAKE 1 TABLET BY MOUTH DAILY WITH BREAKFAST [facility] amoxicillin 500 mg tablet 2021-08 00:00: 00 Yes [id number] 500mg Take 1 tablet by mouth in the morning and 1 tablet in the evening. [facility] empaglifloz in (JARDIANCE) 10 mg 2021-08 00:00: 00 Yes [id number] 10mg Take 1 tablet by mouth in the morning. [facility] ALBUTEROL 90 mcg/actuati on inhaler 2021-08 00:00: 00 Yes [id number] INHALE 2 PUFFS BY MOUTH EVERY 6 HOURS NEEDED FOR WHEEZING, SHORTNESS OF BREATH OR BRONCHOSPA [facility] METFORMIN 850 mg tablet 2021-08 00:00: 00 Yes [id number] TAKE 1 TABLET BY MOUTH THREE TIMES DAILY [facility] QUINAPRIL 40 mg tablet 2021-08 00:00: 00 Yes [id number] 40mg TAKE 1 TABLET BY MOUTH EVERY MORNING [facility] GLIPIZIDE XL 5 mg 24 hr tablet 2021-08 00:00: 00 Yes [id number] 5mg TAKE 1 TABLET BY MOUTH DAILY WITH BREAKFAST [facility] amoxicillin 500 mg tablet 2021-08 00:00: 00 Yes [id number] 500mg Take 1 tablet by mouth in the morning and 1 tablet in the evening. [facility] empaglifloz in (JARDIANCE) 10 mg 2021-08 00:00: 00 Yes [id number] 10mg Take 1 tablet by mouth in the morning. [facility] ALBUTEROL 90 mcg/actuati on inhaler 2021-08 00:00: 00 Yes [id number] INHALE 2 PUFFS BY MOUTH EVERY 6 HOURS NEEDED FOR WHEEZING, SHORTNESS OF BREATH OR BRONCHOSPA [facility] METFORMIN 850 mg tablet 2021-08 00:00: 00 Yes [id number] TAKE 1 TABLET BY MOUTH THREE TIMES DAILY [facility] QUINAPRIL 40 mg tablet 2021-08 00:00: 00 Yes [id number] 40mg TAKE 1 TABLET BY MOUTH EVERY MORNING [facility] GLIPIZIDE XL 5 mg 24 hr tablet 2021-08 00:00: 00 Yes [id number] 5mg TAKE 1 TABLET BY MOUTH DAILY WITH BREAKFAST [facility] amoxicillin 500 mg tablet 2021-08 00:00: 00 Yes [id number] 500mg Take 1 tablet by mouth in the morning and 1 tablet in the evening. [facility] empaglifloz in (JARDIANCE) 10 mg 2021-08 00:00: 00 Yes [id number] 10mg Take 1 tablet by mouth in the morning. [facility] ALBUTEROL 90 mcg/actuati on inhaler 2021-08 00:00: 00 Yes [id number] INHALE 2 PUFFS BY MOUTH EVERY 6 HOURS NEEDED FOR WHEEZING, SHORTNESS OF BREATH OR BRONCHOSPA [facility] METFORMIN 850 mg tablet 2021-08 00:00: 00 Yes [id number] TAKE 1 TABLET BY MOUTH THREE TIMES DAILY [facility] QUINAPRIL 40 mg tablet 2021-08 00:00: 00 Yes [id number] 40mg TAKE 1 TABLET BY MOUTH EVERY MORNING [facility] GLIPIZIDE XL 5 mg 24 hr tablet 2021-08 00:00: 00 Yes [id number] 5mg TAKE 1 TABLET BY MOUTH DAILY WITH BREAKFAST [facility] amoxicillin 500 mg tablet 2021-08 00:00: 00 Yes [id number] 500mg Take 1 tablet by mouth in the morning and 1 tablet in the evening. [facility] empaglifloz in (JARDIANCE) 10 mg 2021-08 00:00: 00 Yes [id number] 10mg Take 1 tablet by mouth in the morning. [facility] ALBUTEROL 90 mcg/actuati on inhaler 2021-08 00:00: 00 Yes [id number] INHALE 2 PUFFS BY MOUTH EVERY 6 HOURS NEEDED FOR WHEEZING, SHORTNESS OF BREATH OR BRONCHOSPA [facility] METFORMIN 850 mg tablet 2021-08 00:00: 00 Yes [id number] TAKE 1 TABLET BY MOUTH THREE TIMES DAILY [facility] QUINAPRIL 40 mg tablet 2021-08 00:00: 00 Yes [id number] 40mg TAKE 1 TABLET BY MOUTH EVERY MORNING [facility] GLIPIZIDE XL 5 mg 24 hr tablet 2021-08 00:00: 00 Yes [id number] 5mg TAKE 1 TABLET BY MOUTH DAILY WITH BREAKFAST [facility] amoxicillin 500 mg tablet 2021-08 00:00: 00 Yes [id number] 500mg Take 1 tablet by mouth in the morning and 1 tablet in the evening. [facility] empaglifloz in (JARDIANCE) 10 mg 2021-08 00:00: 00 Yes [id number] 10mg Take 1 tablet by mouth in the morning. [facility] ALBUTEROL 90 mcg/actuati on inhaler 2021-08 00:00: 00 Yes [id number] INHALE 2 PUFFS BY MOUTH EVERY 6 HOURS NEEDED FOR WHEEZING, SHORTNESS OF BREATH OR BRONCHOSPA [facility] METFORMIN 850 mg tablet 2021-08 00:00: 00 Yes [id number] TAKE 1 TABLET BY MOUTH THREE TIMES DAILY [facility] QUINAPRIL 40 mg tablet 2021-08 00:00: 00 Yes [id number] 40mg TAKE 1 TABLET BY MOUTH EVERY MORNING [facility] GLIPIZIDE XL 5 mg 24 hr tablet 2021-08 00:00: 00 Yes [id number] 5mg TAKE 1 TABLET BY MOUTH DAILY WITH BREAKFAST [facility] amoxicillin 500 mg tablet 2021-08 00:00: 00 Yes [id number] 500mg Take 1 tablet by mouth in the morning and 1 tablet in the evening. [facility] empaglifloz in (JARDIANCE) 10 mg 2021-08 00:00: 00 Yes [id number] 10mg Take 1 tablet by mouth in the morning. [facility] ALBUTEROL 90 mcg/actuati on inhaler 2021-08 00:00: 00 Yes [id number] INHALE 2 PUFFS BY MOUTH EVERY 6 HOURS NEEDED FOR WHEEZING, SHORTNESS OF BREATH OR BRONCHOSPA [facility] METFORMIN 850 mg tablet 2021-08 00:00: 00 Yes [id number] TAKE 1 TABLET BY MOUTH THREE TIMES DAILY [facility] QUINAPRIL 40 mg tablet 2021-08 00:00: 00 Yes [id number] 40mg TAKE 1 TABLET BY MOUTH EVERY MORNING [facility] GLIPIZIDE XL 5 mg 24 hr tablet 2021-08 00:00: 00 Yes [id number] 5mg TAKE 1 TABLET BY MOUTH DAILY WITH BREAKFAST [facility] amoxicillin 500 mg tablet 2021-08 00:00: 00 Yes [id number] 500mg Take 1 tablet by mouth in the morning and 1 tablet in the evening. [facility] empaglifloz in (JARDIANCE) 10 mg 2021-08 00:00: 00 Yes [id number] 10mg Take 1 tablet by mouth in the morning. [facility] ALBUTEROL 90 mcg/actuati on inhaler 2021-08 00:00: 00 Yes [id number] INHALE 2 PUFFS BY MOUTH EVERY 6 HOURS NEEDED FOR WHEEZING, SHORTNESS OF BREATH OR BRONCHOSPA [facility] METFORMIN 850 mg tablet 2021-08 00:00: 00 Yes [id number] TAKE 1 TABLET BY MOUTH THREE TIMES DAILY [facility] QUINAPRIL 40 mg tablet 2021-08 00:00: 00 Yes [id number] 40mg TAKE 1 TABLET BY MOUTH EVERY MORNING [facility] GLIPIZIDE XL 5 mg 24 hr tablet 2021-08 00:00: 00 Yes [id number] 5mg TAKE 1 TABLET BY MOUTH DAILY WITH BREAKFAST [facility] amoxicillin 500 mg tablet 2021-08 00:00: 00 Yes [id number] 500mg Take 1 tablet by mouth in the morning and 1 tablet in the evening. [facility] empaglifloz in (JARDIANCE) 10 mg 2021-08 00:00: 00 Yes [id number] 10mg Take 1 tablet by mouth in the morning. [facility] ALBUTEROL 90 mcg/actuati on inhaler 2021-08 00:00: 00 Yes [id number] INHALE 2 PUFFS BY MOUTH EVERY 6 HOURS NEEDED FOR WHEEZING, SHORTNESS OF BREATH OR BRONCHOSPA [facility] METFORMIN 850 mg tablet 2021-08 00:00: 00 Yes [id number] TAKE 1 TABLET BY MOUTH THREE TIMES DAILY [facility] QUINAPRIL 40 mg tablet 2021-08 00:00: 00 Yes [id number] 40mg TAKE 1 TABLET BY MOUTH EVERY MORNING [facility] GLIPIZIDE XL 5 mg 24 hr tablet 2021-08 00:00: 00 Yes [id number] 5mg TAKE 1 TABLET BY MOUTH DAILY WITH BREAKFAST [facility] amoxicillin 500 mg tablet 2021-08 00:00: 00 Yes [id number] 500mg Take 1 tablet by mouth in the morning and 1 tablet in the evening. [facility] empaglifloz in (JARDIANCE) 10 mg 2021-08 00:00: 00 Yes [id number] 10mg Take 1 tablet by mouth in the morning. [facility] ALBUTEROL 90 mcg/actuati on inhaler 2021-08 00:00: 00 Yes [id number] INHALE 2 PUFFS BY MOUTH EVERY 6 HOURS NEEDED FOR WHEEZING, SHORTNESS OF BREATH OR BRONCHOSPA [facility] METFORMIN 850 mg tablet 2021-08 00:00: 00 Yes [id number] TAKE 1 TABLET BY MOUTH THREE TIMES DAILY [facility] QUINAPRIL 40 mg tablet 2021-08 00:00: 00 Yes [id number] 40mg TAKE 1 TABLET BY MOUTH EVERY MORNING [facility] GLIPIZIDE XL 5 mg 24 hr tablet 2021-08 00:00: 00 Yes [id number] 5mg TAKE 1 TABLET BY MOUTH DAILY WITH BREAKFAST [facility] amoxicillin 500 mg tablet 2021-08 00:00: 00 Yes [id number] 500mg Take 1 tablet by mouth in the morning and 1 tablet in the evening. [facility] empaglifloz in (JARDIANCE) 10 mg 2021-08 00:00: 00 Yes [id number] 10mg Take 1 tablet by mouth in the morning. [facility] ALBUTEROL 90 mcg/actuati on inhaler 2021-08 00:00: 00 Yes [id number] INHALE 2 PUFFS BY MOUTH EVERY 6 HOURS NEEDED FOR WHEEZING, SHORTNESS OF BREATH OR BRONCHOSPA [facility] METFORMIN 850 mg tablet 2021-08 00:00: 00 Yes [id number] TAKE 1 TABLET BY MOUTH THREE TIMES DAILY [facility] QUINAPRIL 40 mg tablet 2021-08 00:00: 00 Yes [id number] 40mg TAKE 1 TABLET BY MOUTH EVERY MORNING [facility] GLIPIZIDE XL 5 mg 24 hr tablet 2021-08 00:00: 00 Yes [id number] 5mg TAKE 1 TABLET BY MOUTH DAILY WITH BREAKFAST [facility] amoxicillin 500 mg tablet 2021-08 00:00: 00 Yes [id number] 500mg Take 1 tablet by mouth in the morning and 1 tablet in the evening. [facility] empaglifloz in (JARDIANCE) 10 mg 2021-08 00:00: 00 Yes [id number] 10mg Take 1 tablet by mouth in the morning. [facility] ALBUTEROL 90 mcg/actuati on inhaler 2021-08 00:00: 00 Yes [id number] INHALE 2 PUFFS BY MOUTH EVERY 6 HOURS NEEDED FOR WHEEZING, SHORTNESS OF BREATH OR BRONCHOSPA [facility] METFORMIN 850 mg tablet 2021-08 00:00: 00 Yes [id number] TAKE 1 TABLET BY MOUTH THREE TIMES DAILY [facility] QUINAPRIL 40 mg tablet 2021-08 00:00: 00 Yes [id number] 40mg TAKE 1 TABLET BY MOUTH EVERY MORNING [facility] GLIPIZIDE XL 5 mg 24 hr tablet 2021-08 00:00: 00 Yes [id number] 5mg TAKE 1 TABLET BY MOUTH DAILY WITH BREAKFAST [facility] amoxicillin 500 mg tablet 2021-08 00:00: 00 Yes [id number] 500mg Take 1 tablet by mouth in the morning and 1 tablet in the evening. [facility] empaglifloz in (JARDIANCE) 10 mg 2021-08 00:00: 00 Yes [id number] 10mg Take 1 tablet by mouth in the morning. [facility] ALBUTEROL 90 mcg/actuati on inhaler 2021-08 00:00: 00 Yes [id number] INHALE 2 PUFFS BY MOUTH EVERY 6 HOURS NEEDED FOR WHEEZING, SHORTNESS OF BREATH OR BRONCHOSPA [facility] METFORMIN 850 mg tablet 2021-08 00:00: 00 Yes [id number] TAKE 1 TABLET BY MOUTH THREE TIMES DAILY [facility] QUINAPRIL 40 mg tablet 2021-08 00:00: 00 Yes [id number] 40mg TAKE 1 TABLET BY MOUTH EVERY MORNING [facility] GLIPIZIDE XL 5 mg 24 hr tablet 2021-08 00:00: 00 Yes [id number] 5mg TAKE 1 TABLET BY MOUTH DAILY WITH BREAKFAST [facility] amoxicillin 500 mg tablet 2021-08 00:00: 00 Yes [id number] 500mg Take 1 tablet by mouth in the morning and 1 tablet in the evening. [facility] empaglifloz in (JARDIANCE) 10 mg 2021-08 00:00: 00 Yes [id number] 10mg Take 1 tablet by mouth in the morning. [facility] ALBUTEROL 90 mcg/actuati on inhaler 2021-08 00:00: 00 Yes [id number] INHALE 2 PUFFS BY MOUTH EVERY 6 HOURS NEEDED FOR WHEEZING, SHORTNESS OF BREATH OR BRONCHOSPA [facility] METFORMIN 850 mg tablet 2021-08 00:00: 00 Yes [id number] TAKE 1 TABLET BY MOUTH THREE TIMES DAILY [facility] QUINAPRIL 40 mg tablet 2021-08 00:00: 00 Yes [id number] 40mg TAKE 1 TABLET BY MOUTH EVERY MORNING [facility] GLIPIZIDE XL 5 mg 24 hr tablet 2021-08 00:00: 00 Yes [id number] 5mg TAKE 1 TABLET BY MOUTH DAILY WITH BREAKFAST [facility] amoxicillin 500 mg tablet 2021-08 00:00: 00 Yes [id number] 500mg Take 1 tablet by mouth in the morning and 1 tablet in the evening. [facility] empaglifloz in (JARDIANCE) 10 mg 2021-08 00:00: 00 Yes [id number] 10mg Take 1 tablet by mouth in the morning. [facility] ALBUTEROL 90 mcg/actuati on inhaler 2021-08 00:00: 00 Yes [id number] INHALE 2 PUFFS BY MOUTH EVERY 6 HOURS NEEDED FOR WHEEZING, SHORTNESS OF BREATH OR BRONCHOSPA [facility] METFORMIN 850 mg tablet 2021-08 00:00: 00 Yes [id number] TAKE 1 TABLET BY MOUTH THREE TIMES DAILY [facility] QUINAPRIL 40 mg tablet 2021-08 00:00: 00 Yes [id number] 40mg TAKE 1 TABLET BY MOUTH EVERY MORNING [facility] GLIPIZIDE XL 5 mg 24 hr tablet 2021-08 00:00: 00 Yes [id number] 5mg TAKE 1 TABLET BY MOUTH DAILY WITH BREAKFAST [facility] amoxicillin 500 mg tablet 2021-08 00:00: 00 Yes [id number] 500mg Take 1 tablet by mouth in the morning and 1 tablet in the evening. [facility] empaglifloz in (JARDIANCE) 10 mg 2021-08 00:00: 00 Yes [id number] 10mg Take 1 tablet by mouth in the morning. [facility] ALBUTEROL 90 mcg/actuati on inhaler 2021-08 00:00: 00 Yes [id number] INHALE 2 PUFFS BY MOUTH EVERY 6 HOURS NEEDED FOR WHEEZING, SHORTNESS OF BREATH OR BRONCHOSPA [facility] METFORMIN 850 mg tablet 2021-08 00:00: 00 Yes [id number] TAKE 1 TABLET BY MOUTH THREE TIMES DAILY [facility] QUINAPRIL 40 mg tablet 2021-08 00:00: 00 Yes [id number] 40mg TAKE 1 TABLET BY MOUTH EVERY MORNING [facility] GLIPIZIDE XL 5 mg 24 hr tablet 2021-08 00:00: 00 Yes [id number] 5mg TAKE 1 TABLET BY MOUTH DAILY WITH BREAKFAST [facility] amoxicillin 500 mg tablet 2021-08 00:00: 00 Yes [id number] 500mg Take 1 tablet by mouth in the morning and 1 tablet in the evening. [facility] empaglifloz in (JARDIANCE) 10 mg 2021-08 00:00: 00 Yes [id number] 10mg Take 1 tablet by mouth in the morning. [facility] ALBUTEROL 90 mcg/actuati on inhaler 2021-08 00:00: 00 Yes [id number] INHALE 2 PUFFS BY MOUTH EVERY 6 HOURS NEEDED FOR WHEEZING, SHORTNESS OF BREATH OR BRONCHOSPA [facility] METFORMIN 850 mg tablet 2021-08 00:00: 00 Yes [id number] TAKE 1 TABLET BY MOUTH THREE TIMES DAILY [facility] QUINAPRIL 40 mg tablet 2021-08 00:00: 00 Yes [id number] 40mg TAKE 1 TABLET BY MOUTH EVERY MORNING [facility] GLIPIZIDE XL 5 mg 24 hr tablet 2021-08 00:00: 00 Yes [id number] 5mg TAKE 1 TABLET BY MOUTH DAILY WITH BREAKFAST [facility] amoxicillin 500 mg tablet 2021-08 00:00: 00 Yes [id number] 500mg Take 1 tablet by mouth in the morning and 1 tablet in the evening. [facility] empaglifloz in (JARDIANCE) 10 mg 2021-08 00:00: 00 Yes [id number] 10mg Take 1 tablet by mouth in the morning. [facility] ALBUTEROL 90 mcg/actuati on inhaler 2021-08 00:00: 00 Yes [id number] INHALE 2 PUFFS BY MOUTH EVERY 6 HOURS NEEDED FOR WHEEZING, SHORTNESS OF BREATH OR BRONCHOSPA [facility] METFORMIN 850 mg tablet 2021-08 00:00: 00 Yes [id number] TAKE 1 TABLET BY MOUTH THREE TIMES DAILY [facility] QUINAPRIL 40 mg tablet 2021-08 00:00: 00 Yes [id number] 40mg TAKE 1 TABLET BY MOUTH EVERY MORNING [facility] GLIPIZIDE XL 5 mg 24 hr tablet 2021-08 00:00: 00 Yes [id number] 5mg TAKE 1 TABLET BY MOUTH DAILY WITH BREAKFAST [facility] amoxicillin 500 mg tablet 2021-08 00:00: 00 Yes [id number] 500mg Take 1 tablet by mouth in the morning and 1 tablet in the evening. [facility] empaglifloz in ([place]IANCE) 10 mg 2021-08 00:00: 00 Yes [id number] 10mg Take 1 tablet by mouth in the morning. [facility] ALBUTEROL 90 mcg/actuati on inhaler 2021-08 00:00: 00 Yes [id number] INHALE 2 PUFFS BY MOUTH EVERY 6 HOURS NEEDED FOR WHEEZING, SHORTNESS OF BREATH OR BRONCHOSPA [facility] METFORMIN 850 mg tablet 2021-08 00:00: 00 Yes [id number] TAKE 1 TABLET BY MOUTH THREE TIMES DAILY [facility] QUINAPRIL 40 mg tablet 2021-08 00:00: 00 Yes [id number] 40mg TAKE 1 TABLET BY MOUTH EVERY MORNING [facility] GLIPIZIDE XL 5 mg 24 hr tablet 2021-08 00:00: 00 Yes [id number] 5mg TAKE 1 TABLET BY MOUTH DAILY WITH BREAKFAST [facility] amoxicillin 500 mg tablet 2021-08 00:00: 00 Yes [id number] 500mg Take 1 tablet by mouth in the morning and 1 tablet in the evening. [facility] empaglifloz in (JARDIANCE) 10 mg 2021-08 00:00: 00 Yes [id number] 10mg Take 1 tablet by mouth in the morning. [facility] ALBUTEROL 90 mcg/actuati on inhaler 2021-08 00:00: 00 Yes [id number] INHALE 2 PUFFS BY MOUTH EVERY 6 HOURS NEEDED FOR WHEEZING, SHORTNESS OF BREATH OR BRONCHOSPA [facility] METFORMIN 850 mg tablet 2021-08 00:00: 00 Yes [id number] TAKE 1 TABLET BY MOUTH THREE TIMES DAILY [facility] QUINAPRIL 40 mg tablet 2021-08 00:00: 00 Yes [id number] 40mg TAKE 1 TABLET BY MOUTH EVERY MORNING [facility] GLIPIZIDE XL 5 mg 24 hr tablet 2021-08 00:00: 00 Yes [id number] 5mg TAKE 1 TABLET BY MOUTH DAILY WITH BREAKFAST [facility] amoxicillin 500 mg tablet 2021-08 00:00: 00 Yes [id number] 500mg Take 1 tablet by mouth in the morning and 1 tablet in the evening. [facility] empaglifloz in ([place]) 10 mg 2021-08 00:00: 00 Yes [id number] 10mg Take 1 tablet by mouth in the morning. [facility] ALBUTEROL 90 mcg/actuati on inhaler 2021-08 00:00: 00 Yes [id number] INHALE 2 PUFFS BY MOUTH EVERY 6 HOURS NEEDED FOR WHEEZING, SHORTNESS OF BREATH OR BRONCHOSPA [facility] METFORMIN 850 mg tablet 2021-08 00:00: 00 Yes [id number] TAKE 1 TABLET BY MOUTH THREE TIMES DAILY [facility] QUINAPRIL 40 mg tablet 2021-08 00:00: 00 Yes [id number] 40mg TAKE 1 TABLET BY MOUTH EVERY MORNING [facility] GLIPIZIDE XL 5 mg 24 hr tablet 2021-08 00:00: 00 Yes [id number] 5mg TAKE 1 TABLET BY MOUTH DAILY WITH BREAKFAST [facility] amoxicillin 500 mg tablet 2021-08 00:00: 00 Yes [id number] 500mg Take 1 tablet by mouth in the morning and 1 tablet in the evening. [facility] empaglifloz in ([place]) 10 mg 2021-08 00:00: 00 Yes [id number] 10mg Take 1 tablet by mouth in the morning. [facility] ALBUTEROL 90 mcg/actuati on inhaler 2021-08 00:00: 00 Yes [id number] INHALE 2 PUFFS BY MOUTH EVERY 6 HOURS NEEDED FOR WHEEZING, SHORTNESS OF BREATH OR BRONCHOSPA [facility] METFORMIN 850 mg tablet 2021-08 00:00: 00 Yes [id number] TAKE 1 TABLET BY MOUTH THREE TIMES DAILY [facility] QUINAPRIL 40 mg tablet 2021-08 00:00: 00 Yes [id number] 40mg TAKE 1 TABLET BY MOUTH EVERY MORNING [facility] GLIPIZIDE XL 5 mg 24 hr tablet 2021-08 00:00: 00 Yes [id number] 5mg TAKE 1 TABLET BY MOUTH DAILY WITH BREAKFAST [facility] amoxicillin 500 mg tablet 2021-08 00:00: 00 Yes [id number] 500mg Take 1 tablet by mouth in the morning and 1 tablet in the evening. [facility] empaglifloz in ([place]) 10 mg 2021-08 00:00: 00 Yes [id number] 10mg Take 1 tablet by mouth in the morning. [facility] ALBUTEROL 90 mcg/actuati on inhaler 2021-08 00:00: 00 Yes [id number] INHALE 2 PUFFS BY MOUTH EVERY 6 HOURS NEEDED FOR WHEEZING, SHORTNESS OF BREATH OR BRONCHOSPA SMS [facility] METFORMIN 850 mg tablet 2021-08 00:00: 00 Yes [id number] TAKE 1 TABLET BY MOUTH THREE TIMES DAILY [facility] QUINAPRIL 40 mg tablet 2021-08 00:00: 00 Yes [id number] 40mg TAKE 1 TABLET BY MOUTH EVERY MORNING [facility] GLIPIZIDE XL 5 mg 24 hr tablet 2021-08 00:00: 00 Yes [id number] 5mg TAKE 1 TABLET BY MOUTH DAILY WITH BREAKFAST [facility] amoxicillin 500 mg tablet 2021-08 00:00: 00 Yes [id number] 500mg Take 1 tablet by mouth in the morning and 1 tablet in the evening. [facility] empaglifloz in ([place]) 10 mg 2021-08 00:00: 00 Yes [id number] 10mg Take 1 tablet by mouth in the morning. [facility] ALBUTEROL 90 mcg/actuati on inhaler 2021-08 00:00: 00 Yes [id number] INHALE 2 PUFFS BY MOUTH EVERY 6 HOURS NEEDED FOR WHEEZING, SHORTNESS OF BREATH OR BRONCHOSPA [facility] METFORMIN 850 mg tablet 2021-08 00:00: 00 Yes [id number] TAKE 1 TABLET BY MOUTH THREE TIMES DAILY [facility] QUINAPRIL 40 mg tablet 2021-08 00:00: 00 Yes [id number] 40mg TAKE 1 TABLET BY MOUTH EVERY MORNING [facility] GLIPIZIDE XL 5 mg 24 hr tablet 2021-08 00:00: 00 Yes [id number] 5mg TAKE 1 TABLET BY MOUTH DAILY WITH BREAKFAST [facility] amoxicillin 500 mg tablet 2021-08 00:00: 00 Yes [id number] 500mg Take 1 tablet by mouth in the morning and 1 tablet in the evening. [facility] empaglifloz in ([place]) 10 mg 2021-08 00:00: 00 Yes [id number] 10mg Take 1 tablet by mouth in the morning. [facility] ALBUTEROL 90 mcg/actuati on inhaler 2021-08 00:00: 00 Yes [id number] INHALE 2 PUFFS BY MOUTH EVERY 6 HOURS NEEDED FOR WHEEZING, SHORTNESS OF BREATH OR BRONCHOSPA [facility] METFORMIN 850 mg tablet 2021-08 00:00: 00 Yes [id number] TAKE 1 TABLET BY MOUTH THREE TIMES DAILY [facility] QUINAPRIL 40 mg tablet 2021-08 00:00: 00 Yes [id number] 40mg TAKE 1 TABLET BY MOUTH EVERY MORNING [facility] GLIPIZIDE XL 5 mg 24 hr tablet 2021-08 00:00: 00 Yes [id number] 5mg TAKE 1 TABLET BY MOUTH DAILY WITH BREAKFAST [facility] amoxicillin 500 mg tablet 2021-08 00:00: 00 Yes [id number] 500mg Take 1 tablet by mouth in the morning and 1 tablet in the evening. [facility] empaglifloz in ([place]) 10 mg 2021-08 00:00: 00 Yes [id number] 10mg Take 1 tablet by mouth in the morning. [facility] ALBUTEROL 90 mcg/actuati on inhaler 2021-08 00:00: 00 Yes [id number] INHALE 2 PUFFS BY MOUTH EVERY 6 HOURS NEEDED FOR WHEEZING, SHORTNESS OF BREATH OR BRONCHOSPA [facility] METFORMIN 850 mg tablet 2021-08 00:00: 00 Yes [id number] TAKE 1 TABLET BY MOUTH THREE TIMES DAILY [facility] QUINAPRIL 40 mg tablet 2021-08 00:00: 00 Yes [id number] 40mg TAKE 1 TABLET BY MOUTH EVERY MORNING [facility] GLIPIZIDE XL 5 mg 24 hr tablet 2021-08 00:00: 00 Yes [id number] 5mg TAKE 1 TABLET BY MOUTH DAILY WITH BREAKFAST [facility] amoxicillin 500 mg tablet 2021-08 00:00: 00 Yes [id number] 500mg Take 1 tablet by mouth in the morning and 1 tablet in the evening. [facility] empaglifloz in ([place]) 10 mg 2021-08 00:00: 00 Yes [id number] 10mg Take 1 tablet by mouth in the morning. [facility] ALBUTEROL 90 mcg/actuati on inhaler 2021-08 00:00: 00 Yes [id number] INHALE 2 PUFFS BY MOUTH EVERY 6 HOURS NEEDED FOR WHEEZING, SHORTNESS OF BREATH OR BRONCHOSPA [facility] METFORMIN 850 mg tablet 2021-08 00:00: 00 Yes [id number] TAKE 1 TABLET BY MOUTH THREE TIMES DAILY [facility] QUINAPRIL 40 mg tablet 2021-08 00:00: 00 Yes [id number] 40mg TAKE 1 TABLET BY MOUTH EVERY MORNING [facility] GLIPIZIDE XL 5 mg 24 hr tablet 2021-08 00:00: 00 Yes [id number] 5mg TAKE 1 TABLET BY MOUTH DAILY WITH BREAKFAST [facility] amoxicillin 500 mg tablet 2021-08 00:00: 00 Yes [id number] 500mg Take 1 tablet by mouth in the morning and 1 tablet in the evening. [facility] empaglifloz in ([place]) 10 mg 2021-08 00:00: 00 Yes [id number] 10mg Take 1 tablet by mouth in the morning. [facility] ALBUTEROL 90 mcg/actuati on inhaler 2021-08 00:00: 00 Yes [id number] INHALE 2 PUFFS BY MOUTH EVERY 6 HOURS NEEDED FOR WHEEZING, SHORTNESS OF BREATH OR BRONCHOSPA [facility] METFORMIN 850 mg tablet 2021-08 00:00: 00 Yes [id number] TAKE 1 TABLET BY MOUTH THREE TIMES DAILY [facility] QUINAPRIL 40 mg tablet 2021-08 00:00: 00 Yes [id number] 40mg TAKE 1 TABLET BY MOUTH EVERY MORNING [facility] GLIPIZIDE XL 5 mg 24 hr tablet 2021-08 00:00: 00 Yes [id number] 5mg TAKE 1 TABLET BY MOUTH DAILY WITH BREAKFAST [facility] amoxicillin 500 mg tablet 2021-08 00:00: 00 Yes [id number] 500mg Take 1 tablet by mouth in the morning and 1 tablet in the evening. [facility] empaglifloz in ([place]) 10 mg 2021-08 00:00: 00 Yes [id number] 10mg Take 1 tablet by mouth in the morning. [facility] ALBUTEROL 90 mcg/actuati on inhaler 2021-08 00:00: 00 Yes [id number] INHALE 2 PUFFS BY MOUTH EVERY 6 HOURS NEEDED FOR WHEEZING, SHORTNESS OF BREATH OR BRONCHOSPA [facility] METFORMIN 850 mg tablet 2021-08 00:00: 00 Yes [id number] TAKE 1 TABLET BY MOUTH THREE TIMES DAILY [facility] GLIPIZIDE XL 5 mg 24 hr tablet 2021-08 00:00: 00 Yes [id number] 5mg TAKE 1 TABLET BY MOUTH DAILY WITH BREAKFAST [facility] amoxicillin 500 mg tablet 2021-08 00:00: 00 Yes [id number] 500mg Take 1 tablet by mouth in the morning and 1 tablet in the evening. [facility] empaglifloz in ([place]) 10 mg 2021-08 00:00: 00 Yes [id number] 10mg Take 1 tablet by mouth in the morning. [facility] ALBUTEROL 90 mcg/actuati on inhaler 2021-08 00:00: 00 Yes [id number] INHALE 2 PUFFS BY MOUTH EVERY 6 HOURS NEEDED FOR WHEEZING, SHORTNESS OF BREATH OR BRONCHOSPA SMS [facility] METFORMIN 850 mg tablet 2021-08 00:00: 00 Yes [id number] TAKE 1 TABLET BY MOUTH THREE TIMES DAILY [facility] GLIPIZIDE XL 5 mg 24 hr tablet 2021-08 00:00: 00 Yes [id number] 5mg TAKE 1 TABLET BY MOUTH DAILY WITH BREAKFAST [facility] amoxicillin 500 mg tablet 2021-08 00:00: 00 Yes [id number] 500mg Take 1 tablet by mouth in the morning and 1 tablet in the evening. [facility] empaglifloz in ([place]) 10 mg 2021-08 00:00: 00 Yes [id number] 10mg Take 1 tablet by mouth in the morning. [facility] ALBUTEROL 90 mcg/actuati on inhaler 2021-08 00:00: 00 Yes [id number] INHALE 2 PUFFS BY MOUTH EVERY 6 HOURS NEEDED FOR WHEEZING, SHORTNESS OF BREATH OR BRONCHOSPA [facility] METFORMIN 850 mg tablet 2021-08 00:00: 00 Yes [id number] TAKE 1 TABLET BY MOUTH THREE TIMES DAILY [facility] GLIPIZIDE XL 5 mg 24 hr tablet 2021-08 00:00: 00 Yes [id number] 5mg TAKE 1 TABLET BY MOUTH DAILY WITH BREAKFAST [facility] amoxicillin 500 mg tablet 2021-08 00:00: 00 Yes [id number] 500mg Take 1 tablet by mouth in the morning and 1 tablet in the evening. [facility] empaglifloz in ([place]) 10 mg 2021-08 00:00: 00 Yes [id number] 10mg Take 1 tablet by mouth in the morning. [facility] ALBUTEROL 90 mcg/actuati on inhaler 2021-08 00:00: 00 Yes [id number] INHALE 2 PUFFS BY MOUTH EVERY 6 HOURS NEEDED FOR WHEEZING, SHORTNESS OF BREATH OR BRONCHOSPA [facility] METFORMIN 850 mg tablet 2021-08 00:00: 00 Yes [id number] TAKE 1 TABLET BY MOUTH THREE TIMES DAILY [facility] GLIPIZIDE XL 5 mg 24 hr tablet 2021-08 00:00: 00 Yes [id number] 5mg TAKE 1 TABLET BY MOUTH DAILY WITH BREAKFAST [facility] amoxicillin 500 mg tablet 2021-08 00:00: 00 Yes [id number] 500mg Take 1 tablet by mouth in the morning and 1 tablet in the evening. [facility] empaglifloz in ([place]) 10 mg 2021-08 00:00: 00 Yes [id number] 10mg Take 1 tablet by mouth in the morning. [facility] ALBUTEROL 90 mcg/actuati on inhaler 2021-08 00:00: 00 Yes [id number] INHALE 2 PUFFS BY MOUTH EVERY 6 HOURS NEEDED FOR WHEEZING, SHORTNESS OF BREATH OR BRONCHOSPA [facility] METFORMIN 850 mg tablet 2021-08 00:00: 00 Yes [id number] TAKE 1 TABLET BY MOUTH THREE TIMES DAILY [facility] GLIPIZIDE XL 5 mg 24 hr tablet 2021-08 00:00: 00 Yes [id number] 5mg TAKE 1 TABLET BY MOUTH DAILY WITH BREAKFAST [facility] amoxicillin 500 mg tablet 2021-08 00:00: 00 Yes [id number] 500mg Take 1 tablet by mouth in the morning and 1 tablet in the evening. [facility] empaglifloz in ([place]) 10 mg 2021-08 00:00: 00 Yes [id number] 10mg Take 1 tablet by mouth in the morning. [facility] ALBUTEROL 90 mcg/actuati on inhaler 2021-08 00:00: 00 Yes [id number] INHALE 2 PUFFS BY MOUTH EVERY 6 HOURS NEEDED FOR WHEEZING, SHORTNESS OF BREATH OR BRONCHOSPA [facility] METFORMIN 850 mg tablet 2021-08 00:00: 00 Yes [id number] TAKE 1 TABLET BY MOUTH THREE TIMES DAILY [facility] GLIPIZIDE XL 5 mg 24 hr tablet 2021-08 00:00: 00 Yes [id number] 5mg TAKE 1 TABLET BY MOUTH DAILY WITH BREAKFAST [facility] amoxicillin 500 mg tablet 2021-08 00:00: 00 Yes [id number] 500mg Take 1 tablet by mouth in the morning and 1 tablet in the evening. [facility] empaglifloz in ([place]) 10 mg 2021-08 00:00: 00 Yes [id number] 10mg Take 1 tablet by mouth in the morning. [facility] ALBUTEROL 90 mcg/actuati on inhaler 2021-08 00:00: 00 Yes [id number] INHALE 2 PUFFS BY MOUTH EVERY 6 HOURS NEEDED FOR WHEEZING, SHORTNESS OF BREATH OR BRONCHOSPA [facility] METFORMIN 850 mg tablet 2021-08 00:00: 00 Yes [id number] TAKE 1 TABLET BY MOUTH THREE TIMES DAILY [facility] GLIPIZIDE XL 5 mg 24 hr tablet 2021-08 00:00: 00 Yes [id number] 5mg TAKE 1 TABLET BY MOUTH DAILY WITH BREAKFAST [facility] amoxicillin 500 mg tablet 2021-08 00:00: 00 Yes [id number] 500mg Take 1 tablet by mouth in the morning and 1 tablet in the evening. [facility] empaglifloz in ([place]) 10 mg 2021-08 00:00: 00 Yes [id number] 10mg Take 1 tablet by mouth in the morning. [facility] ALBUTEROL 90 mcg/actuati on inhaler 2021-08 00:00: 00 Yes [id number] INHALE 2 PUFFS BY MOUTH EVERY 6 HOURS NEEDED FOR WHEEZING, SHORTNESS OF BREATH OR BRONCHOSPA [facility] METFORMIN 850 mg tablet 2021-08 00:00: 00 Yes [id number] TAKE 1 TABLET BY MOUTH THREE TIMES DAILY [facility] GLIPIZIDE XL 5 mg 24 hr tablet 2021-08 00:00: 00 Yes [id number] 5mg TAKE 1 TABLET BY MOUTH DAILY WITH BREAKFAST [facility] amoxicillin 500 mg tablet 2021-08 00:00: 00 Yes [id number] 500mg Take 1 tablet by mouth in the morning and 1 tablet in the evening. [facility] empaglifloz in ([place]) 10 mg 2021-08 00:00: 00 Yes [id number] 10mg Take 1 tablet by mouth in the morning. [facility] ALBUTEROL 90 mcg/actuati on inhaler 2021-08 00:00: 00 Yes [id number] INHALE 2 PUFFS BY MOUTH EVERY 6 HOURS NEEDED FOR WHEEZING, SHORTNESS OF BREATH OR BRONCHOSPA [facility] METFORMIN 850 mg tablet 2021-08 00:00: 00 Yes [id number] TAKE 1 TABLET BY MOUTH THREE TIMES DAILY [facility] GLIPIZIDE XL 5 mg 24 hr tablet 2021-08 00:00: 00 Yes [id number] 5mg TAKE 1 TABLET BY MOUTH DAILY WITH BREAKFAST [facility] amoxicillin 500 mg tablet 2021-08 00:00: 00 Yes [id number] 500mg Take 1 tablet by mouth in the morning and 1 tablet in the evening. [facility] empaglifloz in ([place]) 10 mg 2021-08 00:00: 00 Yes [id number] 10mg Take 1 tablet by mouth in the morning. [facility] ALBUTEROL 90 mcg/actuati on inhaler 2021-08 00:00: 00 Yes [id number] INHALE 2 PUFFS BY MOUTH EVERY 6 HOURS NEEDED FOR WHEEZING, SHORTNESS OF BREATH OR BRONCHOSPA [facility] METFORMIN 850 mg tablet 2021-08 00:00: 00 Yes [id number] TAKE 1 TABLET BY MOUTH THREE TIMES DAILY [facility] GLIPIZIDE XL 5 mg 24 hr tablet 2021-08 00:00: 00 Yes [id number] 5mg TAKE 1 TABLET BY MOUTH DAILY WITH BREAKFAST [facility] amoxicillin 500 mg tablet 2021-08 00:00: 00 Yes [id number] 500mg Take 1 tablet by mouth in the morning and 1 tablet in the evening. [facility] empaglifloz in ([place]) 10 mg 2021-08 00:00: 00 Yes [id number] 10mg Take 1 tablet by mouth in the morning. [facility] ALBUTEROL 90 mcg/actuati on inhaler 2021-08 00:00: 00 Yes [id number] INHALE 2 PUFFS BY MOUTH EVERY 6 HOURS NEEDED FOR WHEEZING, SHORTNESS OF BREATH OR BRONCHOSPA [facility] METFORMIN 850 mg tablet 2021-08 00:00: 00 Yes [id number] TAKE 1 TABLET BY MOUTH THREE TIMES DAILY [facility] GLIPIZIDE XL 5 mg 24 hr tablet 2021-08 00:00: 00 Yes [id number] 5mg TAKE 1 TABLET BY MOUTH DAILY WITH BREAKFAST [facility] amoxicillin 500 mg tablet 2021-08 00:00: 00 Yes [id number] 500mg Take 1 tablet by mouth in the morning and 1 tablet in the evening. [facility] empaglifloz in ([place]) 10 mg 2021-08 00:00: 00 Yes [id number] 10mg Take 1 tablet by mouth in the morning. [facility] ALBUTEROL 90 mcg/actuati on inhaler 2021-08 00:00: 00 Yes [id number] INHALE 2 PUFFS BY MOUTH EVERY 6 HOURS NEEDED FOR WHEEZING, SHORTNESS OF BREATH OR BRONCHOSPA [facility] METFORMIN 850 mg tablet 2021-08 00:00: 00 Yes [id number] TAKE 1 TABLET BY MOUTH THREE TIMES DAILY [facility] GLIPIZIDE XL 5 mg 24 hr tablet 2021-08 00:00: 00 Yes [id number] 5mg TAKE 1 TABLET BY MOUTH DAILY WITH BREAKFAST [facility] amoxicillin 500 mg tablet 2021-08 00:00: 00 Yes [id number] 500mg Take 1 tablet by mouth in the morning and 1 tablet in the evening. [facility] empaglifloz in ([place]) 10 mg 2021-08 00:00: 00 Yes [id number] 10mg Take 1 tablet by mouth in the morning. [facility] ALBUTEROL 90 mcg/actuati on inhaler 2021-08 00:00: 00 Yes [id number] INHALE 2 PUFFS BY MOUTH EVERY 6 HOURS NEEDED FOR WHEEZING, SHORTNESS OF BREATH OR BRONCHOSPA [facility] METFORMIN 850 mg tablet 2021-08 00:00: 00 Yes [id number] TAKE 1 TABLET BY MOUTH THREE TIMES DAILY [facility] GLIPIZIDE XL 5 mg 24 hr tablet 2021-08 00:00: 00 Yes [id number] 5mg TAKE 1 TABLET BY MOUTH DAILY WITH BREAKFAST [facility] amoxicillin 500 mg tablet 2021-08 00:00: 00 Yes [id number] 500mg Take 1 tablet by mouth in the morning and 1 tablet in the evening. [facility] empaglifloz in ([place]) 10 mg 2021-08 00:00: 00 Yes [id number] 10mg Take 1 tablet by mouth in the morning. [facility] ALBUTEROL 90 mcg/actuati on inhaler 2021-08 00:00: 00 Yes [id number] INHALE 2 PUFFS BY MOUTH EVERY 6 HOURS NEEDED FOR WHEEZING, SHORTNESS OF BREATH OR BRONCHOSPA [facility] METFORMIN 850 mg tablet 2021-08 00:00: 00 Yes [id number] TAKE 1 TABLET BY MOUTH THREE TIMES DAILY [facility] GLIPIZIDE XL 5 mg 24 hr tablet 2021-08 00:00: 00 Yes [id number] 5mg TAKE 1 TABLET BY MOUTH DAILY WITH BREAKFAST [facility] amoxicillin 500 mg tablet 2021-08 00:00: 00 Yes [id number] 500mg Take 1 tablet by mouth in the morning and 1 tablet in the evening. [facility] empaglifloz in ([place]) 10 mg 2021-08 00:00: 00 Yes [id number] 10mg Take 1 tablet by mouth in the morning. [facility] ALBUTEROL 90 mcg/actuati on inhaler 2021-08 00:00: 00 Yes [id number] INHALE 2 PUFFS BY MOUTH EVERY 6 HOURS NEEDED FOR WHEEZING, SHORTNESS OF BREATH OR BRONCHOSPA [facility] METFORMIN 850 mg tablet 2021-08 00:00: 00 Yes [id number] TAKE 1 TABLET BY MOUTH THREE TIMES DAILY [facility] GLIPIZIDE XL 5 mg 24 hr tablet 2021-08 00:00: 00 Yes [id number] 5mg TAKE 1 TABLET BY MOUTH DAILY WITH BREAKFAST [facility] amoxicillin 500 mg tablet 2021-08 00:00: 00 Yes [id number] 500mg Take 1 tablet by mouth in the morning and 1 tablet in the evening. [facility] empaglifloz in ([place]) 10 mg 2021-08 00:00: 00 Yes [id number] 10mg Take 1 tablet by mouth in the morning. [facility] ALBUTEROL 90 mcg/actuati on inhaler 2021-08 00:00: 00 Yes [id number] INHALE 2 PUFFS BY MOUTH EVERY 6 HOURS NEEDED FOR WHEEZING, SHORTNESS OF BREATH OR BRONCHOSPA [facility] METFORMIN 850 mg tablet 2021-08 00:00: 00 Yes [id number] TAKE 1 TABLET BY MOUTH THREE TIMES DAILY [facility] GLIPIZIDE XL 5 mg 24 hr tablet 2021-08 00:00: 00 Yes [id number] 5mg TAKE 1 TABLET BY MOUTH DAILY WITH BREAKFAST [facility] amoxicillin 500 mg tablet 2021-08 00:00: 00 Yes [id number] 500mg Take 1 tablet by mouth in the morning and 1 tablet in the evening. [facility] empaglifloz in ([place]) 10 mg 2021-08 00:00: 00 Yes [id number] 10mg Take 1 tablet by mouth in the morning. [facility] ALBUTEROL 90 mcg/actuati on inhaler 2021-08 00:00: 00 Yes [id number] INHALE 2 PUFFS BY MOUTH EVERY 6 HOURS NEEDED FOR WHEEZING, SHORTNESS OF BREATH OR BRONCHOSPA SMS [facility] METFORMIN 850 mg tablet 2021-08 00:00: 00 Yes [id number] TAKE 1 TABLET BY MOUTH THREE TIMES DAILY [facility] GLIPIZIDE XL 5 mg 24 hr tablet 2021-08 00:00: 00 Yes [id number] 5mg TAKE 1 TABLET BY MOUTH DAILY WITH BREAKFAST [facility] amoxicillin 500 mg tablet 2021-08 00:00: 00 Yes [id number] 500mg Take 1 tablet by mouth in the morning and 1 tablet in the evening. [facility] empaglifloz in ([place]) 10 mg 2021-08 00:00: 00 Yes [id number] 10mg Take 1 tablet by mouth in the morning. [facility] ALBUTEROL 90 mcg/actuati on inhaler 2021-08 00:00: 00 Yes [id number] INHALE 2 PUFFS BY MOUTH EVERY 6 HOURS NEEDED FOR WHEEZING, SHORTNESS OF BREATH OR BRONCHOSPA SMS [facility] METFORMIN 850 mg tablet 2021-08 00:00: 00 Yes [id number] TAKE 1 TABLET BY MOUTH THREE TIMES DAILY [facility] GLIPIZIDE XL 5 mg 24 hr tablet 2021-08 00:00: 00 Yes [id number] 5mg TAKE 1 TABLET BY MOUTH DAILY WITH BREAKFAST [facility] amoxicillin 500 mg tablet 2021-08 00:00: 00 Yes [id number] 500mg Take 1 tablet by mouth in the morning and 1 tablet in the evening. [facility] empaglifloz in ([place]) 10 mg 2021-08 00:00: 00 Yes [id number] 10mg Take 1 tablet by mouth in the morning. [facility] ALBUTEROL 90 mcg/actuati on inhaler 2021-08 00:00: 00 Yes [id number] INHALE 2 PUFFS BY MOUTH EVERY 6 HOURS NEEDED FOR WHEEZING, SHORTNESS OF BREATH OR BRONCHOSPA SMS [facility] METFORMIN 850 mg tablet 2021-08 00:00: 00 Yes [id number] TAKE 1 TABLET BY MOUTH THREE TIMES DAILY [facility] GLIPIZIDE XL 5 mg 24 hr tablet 2021-08 00:00: 00 Yes [id number] 5mg TAKE 1 TABLET BY MOUTH DAILY WITH BREAKFAST [facility] amoxicillin 500 mg tablet 2021-08 00:00: 00 Yes [id number] 500mg Take 1 tablet by mouth in the morning and 1 tablet in the evening. [facility] empaglifloz in ([place]) 10 mg 2021-08 00:00: 00 Yes [id number] 10mg Take 1 tablet by mouth in the morning. [facility] ALBUTEROL 90 mcg/actuati on inhaler 2021-08 00:00: 00 Yes [id number] INHALE 2 PUFFS BY MOUTH EVERY 6 HOURS NEEDED FOR WHEEZING, SHORTNESS OF BREATH OR BRONCHOSPA [facility] METFORMIN 850 mg tablet 2021-08 00:00: 00 Yes [id number] TAKE 1 TABLET BY MOUTH THREE TIMES DAILY [facility] GLIPIZIDE XL 5 mg 24 hr tablet 2021-08 00:00: 00 Yes [id number] 5mg TAKE 1 TABLET BY MOUTH DAILY WITH BREAKFAST [facility] amoxicillin 500 mg tablet 2021-08 00:00: 00 Yes [id number] 500mg Take 1 tablet by mouth in the morning and 1 tablet in the evening. [facility] empaglifloz in ([place]) 10 mg 2021-08 00:00: 00 Yes [id number] 10mg Take 1 tablet by mouth in the morning. [facility] ALBUTEROL 90 mcg/actuati on inhaler 2021-08 00:00: 00 Yes [id number] INHALE 2 PUFFS BY MOUTH EVERY 6 HOURS NEEDED FOR WHEEZING, SHORTNESS OF BREATH OR BRONCHOSPA [facility] METFORMIN 850 mg tablet 2021-08 00:00: 00 Yes [id number] TAKE 1 TABLET BY MOUTH THREE TIMES DAILY [facility] GLIPIZIDE XL 5 mg 24 hr tablet 2021-08 00:00: 00 Yes [id number] 5mg TAKE 1 TABLET BY MOUTH DAILY WITH BREAKFAST [facility] amoxicillin 500 mg tablet 2021-08 00:00: 00 Yes [id number] 500mg Take 1 tablet by mouth in the morning and 1 tablet in the evening. [facility] empaglifloz in (JARDIANCE) 10 mg 2021-08 00:00: 00 Yes [id number] 10mg Take 1 tablet by mouth in the morning. [facility] ALBUTEROL 90 mcg/actuati on inhaler 2021-08 00:00: 00 Yes [id number] INHALE 2 PUFFS BY MOUTH EVERY 6 HOURS NEEDED FOR WHEEZING, SHORTNESS OF BREATH OR BRONCHOSPA [facility] METFORMIN 850 mg tablet 2021-08 00:00: 00 Yes [id number] TAKE 1 TABLET BY MOUTH THREE TIMES DAILY [facility] GLIPIZIDE XL 5 mg 24 hr tablet 2021-08 00:00: 00 Yes [id number] 5mg TAKE 1 TABLET BY MOUTH DAILY WITH BREAKFAST [facility] amoxicillin 500 mg tablet 2021-08 00:00: 00 Yes [id number] 500mg Take 1 tablet by mouth in the morning and 1 tablet in the evening. [facility] empaglifloz in ([place]) 10 mg 2021-08 00:00: 00 Yes [id number] 10mg Take 1 tablet by mouth in the morning. [facility] ALBUTEROL 90 mcg/actuati on inhaler 2021-08 00:00: 00 Yes [id number] INHALE 2 PUFFS BY MOUTH EVERY 6 HOURS NEEDED FOR WHEEZING, SHORTNESS OF BREATH OR BRONCHOSPA SMS [facility] METFORMIN 850 mg tablet 2021-08 00:00: 00 Yes [id number] TAKE 1 TABLET BY MOUTH THREE TIMES DAILY [facility] GLIPIZIDE XL 5 mg 24 hr tablet 2021-08 00:00: 00 Yes [id number] 5mg TAKE 1 TABLET BY MOUTH DAILY WITH BREAKFAST [facility] amoxicillin 500 mg tablet 2021-08 00:00: 00 Yes [id number] 500mg Take 1 tablet by mouth in the morning and 1 tablet in the evening. [facility] empaglifloz in ([place]) 10 mg 2021-08 00:00: 00 Yes [id number] 10mg Take 1 tablet by mouth in the morning. [facility] ALBUTEROL 90 mcg/actuati on inhaler 2021-08 00:00: 00 Yes [id number] INHALE 2 PUFFS BY MOUTH EVERY 6 HOURS NEEDED FOR WHEEZING, SHORTNESS OF BREATH OR BRONCHOSPA [facility] METFORMIN 850 mg tablet 2021-08 00:00: 00 Yes [id number] TAKE 1 TABLET BY MOUTH THREE TIMES DAILY [facility] GLIPIZIDE XL 5 mg 24 hr tablet 2021-08 00:00: 00 Yes [id number] 5mg TAKE 1 TABLET BY MOUTH DAILY WITH BREAKFAST [facility] amoxicillin 500 mg tablet 2021-08 00:00: 00 Yes [id number] 500mg Take 1 tablet by mouth in the morning and 1 tablet in the evening. [facility] empaglifloz in ([place]) 10 mg 2021-08 00:00: 00 Yes [id number] 10mg Take 1 tablet by mouth in the morning. [facility] ALBUTEROL 90 mcg/actuati on inhaler 2021-08 00:00: 00 Yes [id number] INHALE 2 PUFFS BY MOUTH EVERY 6 HOURS NEEDED FOR WHEEZING, SHORTNESS OF BREATH OR BRONCHOSPA [facility] METFORMIN 850 mg tablet 2021-08 00:00: 00 Yes [id number] TAKE 1 TABLET BY MOUTH THREE TIMES DAILY [facility] GLIPIZIDE XL 5 mg 24 hr tablet 2021-08 00:00: 00 Yes [id number] 5mg TAKE 1 TABLET BY MOUTH DAILY WITH BREAKFAST [facility] amoxicillin 500 mg tablet 2021-08 00:00: 00 Yes [id number] 500mg Take 1 tablet by mouth in the morning and 1 tablet in the evening. [facility] empaglifloz in ([place]) 10 mg 2021-08 00:00: 00 Yes [id number] 10mg Take 1 tablet by mouth in the morning. [facility] ALBUTEROL 90 mcg/actuati on inhaler 2021-08 00:00: 00 Yes [id number] INHALE 2 PUFFS BY MOUTH EVERY 6 HOURS NEEDED FOR WHEEZING, SHORTNESS OF BREATH OR BRONCHOSPA SMS [facility] METFORMIN 850 mg tablet 2021-08 00:00: 00 Yes [id number] TAKE 1 TABLET BY MOUTH THREE TIMES DAILY [facility] GLIPIZIDE XL 5 mg 24 hr tablet 2021-08 00:00: 00 Yes [id number] 5mg TAKE 1 TABLET BY MOUTH DAILY WITH BREAKFAST [facility] amoxicillin 500 mg tablet 2021-08 00:00: 00 Yes [id number] 500mg Take 1 tablet by mouth in the morning and 1 tablet in the evening. [facility] empaglifloz in ([place]) 10 mg 2021-08 00:00: 00 Yes [id number] 10mg Take 1 tablet by mouth in the morning. [facility] ALBUTEROL 90 mcg/actuati on inhaler 2021-08 00:00: 00 Yes [id number] INHALE 2 PUFFS BY MOUTH EVERY 6 HOURS NEEDED FOR WHEEZING, SHORTNESS OF BREATH OR BRONCHOSPA [facility] METFORMIN 850 mg tablet 2021-08 00:00: 00 Yes [id number] TAKE 1 TABLET BY MOUTH THREE TIMES DAILY [facility] GLIPIZIDE XL 5 mg 24 hr tablet 2021-08 00:00: 00 Yes [id number] 5mg TAKE 1 TABLET BY MOUTH DAILY WITH BREAKFAST [facility] amoxicillin 500 mg tablet 2021-08 00:00: 00 Yes [id number] 500mg Take 1 tablet by mouth in the morning and 1 tablet in the evening. [facility] empaglifloz in ([place]) 10 mg 2021-08 00:00: 00 Yes [id number] 10mg Take 1 tablet by mouth in the morning. [facility] ALBUTEROL 90 mcg/actuati on inhaler 2021-08 00:00: 00 Yes [id number] INHALE 2 PUFFS BY MOUTH EVERY 6 HOURS NEEDED FOR WHEEZING, SHORTNESS OF BREATH OR BRONCHOSPA [facility] METFORMIN 850 mg tablet 2021-08 00:00: 00 Yes [id number] TAKE 1 TABLET BY MOUTH THREE TIMES DAILY [facility] GLIPIZIDE XL 5 mg 24 hr tablet 2021-08 00:00: 00 Yes [id number] 5mg TAKE 1 TABLET BY MOUTH DAILY WITH BREAKFAST [facility] amoxicillin 500 mg tablet 2021-08 00:00: 00 Yes [id number] 500mg Take 1 tablet by mouth in the morning and 1 tablet in the evening. [facility] empaglifloz in ([place]) 10 mg 2021-08 00:00: 00 Yes [id number] 10mg Take 1 tablet by mouth in the morning. [facility] ALBUTEROL 90 mcg/actuati on inhaler 2021-08 00:00: 00 Yes [id number] INHALE 2 PUFFS BY MOUTH EVERY 6 HOURS NEEDED FOR WHEEZING, SHORTNESS OF BREATH OR BRONCHOSPA [facility] METFORMIN 850 mg tablet 2021-08 00:00: 00 Yes [id number] TAKE 1 TABLET BY MOUTH THREE TIMES DAILY [facility] GLIPIZIDE XL 5 mg 24 hr tablet 2021-08 00:00: 00 Yes [id number] 5mg TAKE 1 TABLET BY MOUTH DAILY WITH BREAKFAST [facility] amoxicillin 500 mg tablet 2021-08 00:00: 00 Yes [id number] 500mg Take 1 tablet by mouth in the morning and 1 tablet in the evening. [facility] empaglifloz in ([place]) 10 mg 2021-08 00:00: 00 Yes [id number] 10mg Take 1 tablet by mouth in the morning. [facility] ALBUTEROL 90 mcg/actuati on inhaler 2021-08 00:00: 00 Yes [id number] INHALE 2 PUFFS BY MOUTH EVERY 6 HOURS NEEDED FOR WHEEZING, SHORTNESS OF BREATH OR BRONCHOSPA [facility] METFORMIN 850 mg tablet 2021-08 00:00: 00 Yes [id number] TAKE 1 TABLET BY MOUTH THREE TIMES DAILY [facility] GLIPIZIDE XL 5 mg 24 hr tablet 2021-08 00:00: 00 Yes [id number] 5mg TAKE 1 TABLET BY MOUTH DAILY WITH BREAKFAST [facility] amoxicillin 500 mg tablet 2021-08 00:00: 00 Yes [id number] 500mg Take 1 tablet by mouth in the morning and 1 tablet in the evening. [facility] empaglifloz in ([place]) 10 mg 2021-08 00:00: 00 Yes [id number] 10mg Take 1 tablet by mouth in the morning. [facility] ALBUTEROL 90 mcg/actuati on inhaler 2021-08 00:00: 00 Yes [id number] INHALE 2 PUFFS BY MOUTH EVERY 6 HOURS NEEDED FOR WHEEZING, SHORTNESS OF BREATH OR BRONCHOSPA [facility] METFORMIN 850 mg tablet 2021-08 00:00: 00 Yes [id number] TAKE 1 TABLET BY MOUTH THREE TIMES DAILY [facility] GLIPIZIDE XL 5 mg 24 hr tablet 2021-08 00:00: 00 Yes [id number] 5mg TAKE 1 TABLET BY MOUTH DAILY WITH BREAKFAST [facility] amoxicillin 500 mg tablet 2021-08 00:00: 00 Yes [id number] 500mg Take 1 tablet by mouth in the morning and 1 tablet in the evening. [facility] empaglifloz in ([place]) 10 mg 2021-08 00:00: 00 Yes [id number] 10mg Take 1 tablet by mouth in the morning. [facility] ALBUTEROL 90 mcg/actuati on inhaler 2021-08 00:00: 00 Yes [id number] INHALE 2 PUFFS BY MOUTH EVERY 6 HOURS NEEDED FOR WHEEZING, SHORTNESS OF BREATH OR BRONCHOSPA [facility] METFORMIN 850 mg tablet 2021-08 00:00: 00 Yes [id number] TAKE 1 TABLET BY MOUTH THREE TIMES DAILY [facility] GLIPIZIDE XL 5 mg 24 hr tablet 2021-08 00:00: 00 Yes [id number] 5mg TAKE 1 TABLET BY MOUTH DAILY WITH BREAKFAST [facility] amoxicillin 500 mg tablet 2021-08 00:00: 00 Yes [id number] 500mg Take 1 tablet by mouth in the morning and 1 tablet in the evening. [facility] empaglifloz in ([place]) 10 mg 2021-08 00:00: 00 Yes [id number] 10mg Take 1 tablet by mouth in the morning. [facility] ALBUTEROL 90 mcg/actuati on inhaler 2021-08 00:00: 00 Yes [id number] INHALE 2 PUFFS BY MOUTH EVERY 6 HOURS NEEDED FOR WHEEZING, SHORTNESS OF BREATH OR BRONCHOSPA [facility] METFORMIN 850 mg tablet 2021-08 00:00: 00 Yes [id number] TAKE 1 TABLET BY MOUTH THREE TIMES DAILY [facility] GLIPIZIDE XL 5 mg 24 hr tablet 2021-08 00:00: 00 Yes [id number] 5mg TAKE 1 TABLET BY MOUTH DAILY WITH BREAKFAST [facility] amoxicillin 500 mg tablet 2021-08 00:00: 00 Yes [id number] 500mg Take 1 tablet by mouth in the morning and 1 tablet in the evening. [facility] empaglifloz in ([place]) 10 mg 2021-08 00:00: 00 Yes [id number] 10mg Take 1 tablet by mouth in the morning. [facility] ALBUTEROL 90 mcg/actuati on inhaler 2021-08 00:00: 00 Yes [id number] INHALE 2 PUFFS BY MOUTH EVERY 6 HOURS NEEDED FOR WHEEZING, SHORTNESS OF BREATH OR BRONCHOSPA [facility] METFORMIN 850 mg tablet 2021-08 00:00: 00 Yes [id number] TAKE 1 TABLET BY MOUTH THREE TIMES DAILY [facility] GLIPIZIDE XL 5 mg 24 hr tablet 2021-08 00:00: 00 Yes [id number] 5mg TAKE 1 TABLET BY MOUTH DAILY WITH BREAKFAST [facility] amoxicillin 500 mg tablet 2021-08 00:00: 00 Yes [id number] 500mg Take 1 tablet by mouth in the morning and 1 tablet in the evening. [facility] empaglifloz in ([place]) 10 mg 2021-08 00:00: 00 Yes [id number] 10mg Take 1 tablet by mouth in the morning. [facility] METFORMIN 850 mg tablet 2021-08 00:00: 00 Yes [id number] TAKE 1 TABLET BY MOUTH THREE TIMES DAILY [facility] GLIPIZIDE XL 5 mg 24 hr tablet 2021-08 00:00: 00 Yes [id number] 5mg TAKE 1 TABLET BY MOUTH DAILY WITH BREAKFAST [facility] amoxicillin 500 mg tablet 2021-08 00:00: 00 Yes [id number] 500mg Take 1 tablet by mouth in the morning and 1 tablet in the evening. [facility] empaglifloz in ([place]) 10 mg 2021-08 00:00: 00 Yes [id number] 10mg Take 1 tablet by mouth in the morning. [facility] METFORMIN 850 mg tablet 2021-08 00:00: 00 Yes [id number] TAKE 1 TABLET BY MOUTH THREE TIMES DAILY [facility] GLIPIZIDE XL 5 mg 24 hr tablet 2021-08 00:00: 00 Yes [id number] 5mg TAKE 1 TABLET BY MOUTH DAILY WITH BREAKFAST [facility] amoxicillin 500 mg tablet 2021-08 00:00: 00 Yes [id number] 500mg Take 1 tablet by mouth in the morning and 1 tablet in the evening. [facility] empaglifloz in ([place]) 10 mg 2021-08 00:00: 00 Yes [id number] 10mg Take 1 tablet by mouth in the morning. [facility] METFORMIN 850 mg tablet 2021-08 00:00: 00 Yes [id number] TAKE 1 TABLET BY MOUTH THREE TIMES DAILY [facility] GLIPIZIDE XL 5 mg 24 hr tablet 2021-08 00:00: 00 Yes [id number] 5mg TAKE 1 TABLET BY MOUTH DAILY WITH BREAKFAST [facility] amoxicillin 500 mg tablet 2021-08 00:00: 00 Yes [id number] 500mg Take 1 tablet by mouth in the morning and 1 tablet in the evening. [facility] empaglifloz in ([place]) 10 mg 2021-08 00:00: 00 Yes [id number] 10mg Take 1 tablet by mouth in the morning. [facility] METFORMIN 850 mg tablet 2021-08 00:00: 00 Yes [id number] TAKE 1 TABLET BY MOUTH THREE TIMES DAILY [facility] GLIPIZIDE XL 5 mg 24 hr tablet 2021-08 00:00: 00 Yes [id number] 5mg TAKE 1 TABLET BY MOUTH DAILY WITH BREAKFAST [facility] amoxicillin 500 mg tablet 2021-08 00:00: 00 Yes [id number] 500mg Take 1 tablet by mouth in the morning and 1 tablet in the evening. [facility] empaglifloz in ([place]) 10 mg 2021-08 00:00: 00 Yes [id number] 10mg Take 1 tablet by mouth in the morning. [facility] METFORMIN 850 mg tablet 2021-08 00:00: 00 Yes [id number] TAKE 1 TABLET BY MOUTH THREE TIMES DAILY [facility] GLIPIZIDE XL 5 mg 24 hr tablet 2021-08 00:00: 00 Yes [id number] 5mg TAKE 1 TABLET BY MOUTH DAILY WITH BREAKFAST [facility] amoxicillin 500 mg tablet 2021-08 00:00: 00 Yes [id number] 500mg Take 1 tablet by mouth in the morning and 1 tablet in the evening. [facility] empaglifloz in ([place]) 10 mg 2021-08 00:00: 00 Yes [id number] 10mg Take 1 tablet by mouth in the morning. [facility] METFORMIN 850 mg tablet 2021-08 00:00: 00 Yes [id number] TAKE 1 TABLET BY MOUTH THREE TIMES DAILY [facility] GLIPIZIDE XL 5 mg 24 hr tablet 2021-08 00:00: 00 Yes [id number] 5mg TAKE 1 TABLET BY MOUTH DAILY WITH BREAKFAST [facility] amoxicillin 500 mg tablet 2021-08 00:00: 00 Yes [id number] 500mg Take 1 tablet by mouth in the morning and 1 tablet in the evening. [facility] empaglifloz in ([place]) 10 mg 2021-08 00:00: 00 Yes [id number] 10mg Take 1 tablet by mouth in the morning. [facility] METFORMIN 850 mg tablet 2021-08 00:00: 00 Yes [id number] TAKE 1 TABLET BY MOUTH THREE TIMES DAILY [facility] GLIPIZIDE XL 5 mg 24 hr tablet 2021-08 00:00: 00 Yes [id number] 5mg TAKE 1 TABLET BY MOUTH DAILY WITH BREAKFAST [facility] amoxicillin 500 mg tablet 2021-08 00:00: 00 Yes [id number] 500mg Take 1 tablet by mouth in the morning and 1 tablet in the evening. [facility] empaglifloz in ([place]) 10 mg 2021-08 00:00: 00 Yes [id number] 10mg Take 1 tablet by mouth in the morning. [facility] METFORMIN 850 mg tablet 2021-08 00:00: 00 Yes [id number] TAKE 1 TABLET BY MOUTH THREE TIMES DAILY [facility] GLIPIZIDE XL 5 mg 24 hr tablet 2021-08 00:00: 00 Yes [id number] 5mg TAKE 1 TABLET BY MOUTH DAILY WITH BREAKFAST [facility] amoxicillin 500 mg tablet 2021-08 00:00: 00 Yes [id number] 500mg Take 1 tablet by mouth in the morning and 1 tablet in the evening. [facility] empaglifloz in ([place]) 10 mg 2021-08 00:00: 00 Yes [id number] 10mg Take 1 tablet by mouth in the morning. [facility] METFORMIN 850 mg tablet 2021-08 00:00: 00 Yes [id number] TAKE 1 TABLET BY MOUTH THREE TIMES DAILY [facility] GLIPIZIDE XL 5 mg 24 hr tablet 2021-08 00:00: 00 Yes [id number] 5mg TAKE 1 TABLET BY MOUTH DAILY WITH BREAKFAST [facility] amoxicillin 500 mg tablet 2021-08 00:00: 00 Yes [id number] 500mg Take 1 tablet by mouth in the morning and 1 tablet in the evening. [facility] empaglifloz in ([place]) 10 mg 2021-08 00:00: 00 Yes [id number] 10mg Take 1 tablet by mouth in the morning. [facility] METFORMIN 850 mg tablet 2021-08 00:00: 00 Yes [id number] TAKE 1 TABLET BY MOUTH THREE TIMES DAILY [facility] GLIPIZIDE XL 5 mg 24 hr tablet 2021-08 00:00: 00 Yes [id number] 5mg TAKE 1 TABLET BY MOUTH DAILY WITH BREAKFAST [facility] amoxicillin 500 mg tablet 2021-08 00:00: 00 Yes [id number] 500mg Take 1 tablet by mouth in the morning and 1 tablet in the evening. [facility] empaglifloz in ([place]) 10 mg 2021-08 00:00: 00 Yes [id number] 10mg Take 1 tablet by mouth in the morning. [facility] METFORMIN 850 mg tablet 2021-08 00:00: 00 Yes [id number] TAKE 1 TABLET BY MOUTH THREE TIMES DAILY [facility] GLIPIZIDE XL 5 mg 24 hr tablet 2021-08 00:00: 00 Yes [id number] 5mg TAKE 1 TABLET BY MOUTH DAILY WITH BREAKFAST [facility] amoxicillin 500 mg tablet 2021-08 00:00: 00 Yes [id number] 500mg Take 1 tablet by mouth in the morning and 1 tablet in the evening. [facility] empaglifloz in ([place]) 10 mg 2021-08 00:00: 00 Yes [id number] 10mg Take 1 tablet by mouth in the morning. [facility] METFORMIN 850 mg tablet 2021-08 00:00: 00 Yes [id number] TAKE 1 TABLET BY MOUTH THREE TIMES DAILY [facility] amoxicillin 500 mg tablet 2021-08 00:00: 00 Yes [id number] 500mg Take 1 tablet by mouth in the morning and 1 tablet in the evening. [facility] empaglifloz in ([place]) 10 mg 2021-08 00:00: 00 Yes [id number] 10mg Take 1 tablet by mouth in the morning. [facility] METFORMIN 850 mg tablet 2021-08 00:00: 00 Yes [id number] TAKE 1 TABLET BY MOUTH THREE TIMES DAILY [facility] amoxicillin 500 mg tablet 2021-08 00:00: 00 Yes [id number] 500mg Take 1 tablet by mouth in the morning and 1 tablet in the evening. [facility] empaglifloz in ([place]) 10 mg 2021-08 00:00: 00 Yes [id number] 10mg Take 1 tablet by mouth in the morning. [facility] METFORMIN 850 mg tablet 2021-08 00:00: 00 Yes [id number] TAKE 1 TABLET BY MOUTH THREE TIMES DAILY [facility] amoxicillin 500 mg tablet 2021-08 00:00: 00 Yes [id number] 500mg Take 1 tablet by mouth in the morning and 1 tablet in the evening. [facility] empaglifloz in ([place]) 10 mg 2021-08 00:00: 00 Yes [id number] 10mg Take 1 tablet by mouth in the morning. [facility] METFORMIN 850 mg tablet 2021-08 00:00: 00 Yes [id number] TAKE 1 TABLET BY MOUTH THREE TIMES DAILY [facility] amoxicillin 500 mg tablet 2021-08 00:00: 00 Yes [id number] 500mg Take 1 tablet by mouth in the morning and 1 tablet in the evening. [facility] empaglifloz in ([place]) 10 mg 2021-08 00:00: 00 Yes [id number] 10mg Take 1 tablet by mouth in the morning. [facility] METFORMIN 850 mg tablet 2021-08 00:00: 00 Yes [id number] TAKE 1 TABLET BY MOUTH THREE TIMES DAILY [facility] amoxicillin 500 mg tablet 2021-08 00:00: 00 Yes [id number] 500mg Take 1 tablet by mouth in the morning and 1 tablet in the evening. [facility] empaglifloz in ([place]) 10 mg 2021-08 00:00: 00 Yes [id number] 10mg Take 1 tablet by mouth in the morning. [facility] METFORMIN 850 mg tablet 2021-08 00:00: 00 Yes [id number] TAKE 1 TABLET BY MOUTH THREE TIMES DAILY [facility] amoxicillin 500 mg tablet 2021-08 00:00: 00 Yes [id number] 500mg Take 1 tablet by mouth in the morning and 1 tablet in the evening. [facility] empaglifloz in ([place]) 10 mg 2021-08 00:00: 00 Yes [id number] 10mg Take 1 tablet by mouth in the morning. [facility] METFORMIN 850 mg tablet 2021-08 00:00: 00 Yes [id number] TAKE 1 TABLET BY MOUTH THREE TIMES DAILY [facility] amoxicillin 500 mg tablet 2021-08 00:00: 00 Yes [id number] 500mg Take 1 tablet by mouth in the morning and 1 tablet in the evening. [facility] empaglifloz in ([place]) 10 mg 2021-08 00:00: 00 Yes [id number] 10mg Take 1 tablet by mouth in the morning. [facility] METFORMIN 850 mg tablet 2021-08 00:00: 00 Yes [id number] TAKE 1 TABLET BY MOUTH THREE TIMES DAILY [facility] amoxicillin 500 mg tablet 2021-08 00:00: 00 Yes [id number] 500mg Take 1 tablet by mouth in the morning and 1 tablet in the evening. [facility] empaglifloz in ([place]) 10 mg 2021-08 00:00: 00 Yes [id number] 10mg Take 1 tablet by mouth in the morning. [facility] METFORMIN 850 mg tablet 2021-08 00:00: 00 Yes [id number] TAKE 1 TABLET BY MOUTH THREE TIMES DAILY [facility] amoxicillin 500 mg tablet 2021-08 00:00: 00 Yes [id number] 500mg Take 1 tablet by mouth in the morning and 1 tablet in the evening. [facility] empaglifloz in ([place]) 10 mg 2021-08 00:00: 00 Yes [id number] 10mg Take 1 tablet by mouth in the morning. [facility] METFORMIN 850 mg tablet 2021-08 00:00: 00 Yes [id number] TAKE 1 TABLET BY MOUTH THREE TIMES DAILY [facility] amoxicillin 500 mg tablet 2021-08 00:00: 00 Yes [id number] 500mg Take 1 tablet by mouth in the morning and 1 tablet in the evening. [facility] empaglifloz in ([place]) 10 mg 2021-08 00:00: 00 Yes [id number] 10mg Take 1 tablet by mouth in the morning. [facility] METFORMIN 850 mg tablet 2021-08 00:00: 00 Yes [id number] TAKE 1 TABLET BY MOUTH THREE TIMES DAILY [facility] amoxicillin 500 mg tablet 2021-08 00:00: 00 Yes [id number] 500mg Take 1 tablet by mouth in the morning and 1 tablet in the evening. [facility] empaglifloz in ([place]) 10 mg 2021-08 00:00: 00 Yes [id number] 10mg Take 1 tablet by mouth in the morning. [facility] METFORMIN 850 mg tablet 2021-08 00:00: 00 Yes [id number] TAKE 1 TABLET BY MOUTH THREE TIMES DAILY [facility] amoxicillin 500 mg tablet 2021-08 00:00: 00 Yes [id number] 500mg Take 1 tablet by mouth in the morning and 1 tablet in the evening. [facility] empaglifloz in ([place]) 10 mg 2021-08 00:00: 00 Yes [id number] 10mg Take 1 tablet by mouth in the morning. [facility] METFORMIN 850 mg tablet 2021-08 00:00: 00 Yes [id number] TAKE 1 TABLET BY MOUTH THREE TIMES DAILY [facility] amoxicillin 500 mg tablet 2021-08 00:00: 00 Yes [id number] 500mg Take 1 tablet by mouth in the morning and 1 tablet in the evening. [facility] empaglifloz in ([place]) 10 mg 2021-08 00:00: 00 Yes [id number] 10mg Take 1 tablet by mouth in the morning. [facility] METFORMIN 850 mg tablet 2021-08 00:00: 00 Yes [id number] TAKE 1 TABLET BY MOUTH THREE TIMES DAILY [facility] amoxicillin 500 mg tablet 2021-08 00:00: 00 Yes [id number] 500mg Take 1 tablet by mouth in the morning and 1 tablet in the evening. [facility] empaglifloz in ([place]) 10 mg 2021-08 00:00: 00 Yes [id number] 10mg Take 1 tablet by mouth in the morning. [facility] METFORMIN 850 mg tablet 2021-08 00:00: 00 Yes [id number] TAKE 1 TABLET BY MOUTH THREE TIMES DAILY [facility] amoxicillin 500 mg tablet 2021-08 00:00: 00 Yes [id number] 500mg Take 1 tablet by mouth in the morning and 1 tablet in the evening. [facility] empaglifloz in ([place]) 10 mg 2021-08 00:00: 00 Yes [id number] 10mg Take 1 tablet by mouth in the morning. [facility] METFORMIN 850 mg tablet 2021-08 00:00: 00 Yes [id number] TAKE 1 TABLET BY MOUTH THREE TIMES DAILY [facility] amoxicillin 500 mg tablet 2021-08 00:00: 00 Yes [id number] 500mg Take 1 tablet by mouth in the morning and 1 tablet in the evening. [facility] empaglifloz in ([place]) 10 mg 2021-08 00:00: 00 Yes [id number] 10mg Take 1 tablet by mouth in the morning. [facility] METFORMIN 850 mg tablet 2021-08 00:00: 00 Yes [id number] TAKE 1 TABLET BY MOUTH THREE TIMES DAILY [facility] amoxicillin 500 mg tablet 2021-08 00:00: 00 Yes [id number] 500mg Take 1 tablet by mouth in the morning and 1 tablet in the evening. [facility] empaglifloz in ([place]) 10 mg 2021-08 00:00: 00 Yes [id number] 10mg Take 1 tablet by mouth in the morning. [facility] METFORMIN 850 mg tablet 2021-08 00:00: 00 Yes [id number] TAKE 1 TABLET BY MOUTH THREE TIMES DAILY [facility] amoxicillin 500 mg tablet 2021-08 00:00: 00 Yes [id number] 500mg Take 1 tablet by mouth in the morning and 1 tablet in the evening. [facility] empaglifloz in (JARDIANCE) 10 mg 2021-08 00:00: 00 Yes [id number] 10mg Take 1 tablet by mouth in the morning. [facility] METFORMIN 850 mg tablet 2021-08 00:00: 00 Yes [id number] TAKE 1 TABLET BY MOUTH THREE TIMES DAILY [facility] amoxicillin 500 mg tablet 2021-08 00:00: 00 Yes [id number] 500mg Take 1 tablet by mouth in the morning and 1 tablet in the evening. [facility] empaglifloz in ([facility]ARD[facility]ANCE) 10 mg 2021-08 00:00: 00 Yes [id number] 10mg Take 1 tablet by mouth in the morning. [facility] METFORMIN 850 mg tablet 2021-08 00:00: 00 Yes [id number] TAKE 1 TABLET BY MOUTH THREE TIMES DAILY [facility] amoxicillin 500 mg tablet 2021-08 00:00: 00 Yes [id number] 500mg Take 1 tablet by mouth in the morning and 1 tablet in the evening. [facility] empaglifloz in ([facility]ARDIANCE) 10 mg 2021-08 0 00:00: 00 Yes [id number] 10mg Take 1 tablet by mouth in the morning. [facility] METFORMIN 850 mg tablet 2021-08 00:00: 00 Yes [id number] TAKE 1 TABLET BY MOUTH THREE TIMES DAILY [facility] amoxicillin 500 mg tablet 2021-08 00:00: 00 Yes [id number] 500mg Take 1 tablet by mouth in the morning and 1 tablet in the evening. [facility] empaglifloz in ([facility]) 10 mg 2021-08 00:00: 00 Yes [id number] 10mg Take 1 tablet by mouth in the morning. [facility] METFORMIN 850 mg tablet 2021-08 00:00: 00 Yes [id number] TAKE 1 TABLET BY MOUTH THREE TIMES DAILY [facility] amoxicillin 500 mg tablet 2021-08 00:00: 00 Yes [id number] 500mg Take 1 tablet by mouth in the morning and 1 tablet in the evening. [facility] empaglifloz in ([facility]) 10 mg 2021-08 00:00: 00 Yes [id number] 10mg Take 1 tablet by mouth in the morning. [facility] METFORMIN 850 mg tablet 2021-08 00:00: 00 Yes [id number] TAKE 1 TABLET BY MOUTH THREE TIMES DAILY [facility] amoxicillin 500 mg tablet 2021-08 00:00: 00 Yes [id number] 500mg Take 1 tablet by mouth in the morning and 1 tablet in the evening. [facility] empaglifloz in ([place]) 10 mg 2021-08 00:00: 00 Yes [id number] 10mg Take 1 tablet by mouth in the morning. [facility] METFORMIN 850 mg tablet 2021-08 00:00: 00 Yes [id number] TAKE 1 TABLET BY MOUTH THREE TIMES DAILY [facility] amoxicillin 500 mg tablet 2021-08 00:00: 00 Yes [id number] 500mg Take 1 tablet by mouth in the morning and 1 tablet in the evening. [facility] empaglifloz in ([place]) 10 mg 2021-08 00:00: 00 Yes [id number] 10mg Take 1 tablet by mouth in the morning. [facility] METFORMIN 850 mg tablet 2021-08 00:00: 00 Yes [id number] TAKE 1 TABLET BY MOUTH THREE TIMES DAILY [facility] amoxicillin 500 mg tablet 2021-08 00:00: 00 Yes [id number] 500mg Take 1 tablet by mouth in the morning and 1 tablet in the evening. [facility] empaglifloz in ([place]) 10 mg 2021-08 00:00: 00 Yes [id number] 10mg Take 1 tablet by mouth in the morning. [facility] METFORMIN 850 mg tablet 2021-08 00:00: 00 Yes [id number] TAKE 1 TABLET BY MOUTH THREE TIMES DAILY [facility] amoxicillin 500 mg tablet 2021-08 00:00: 00 Yes [id number] 500mg Take 1 tablet by mouth in the morning and 1 tablet in the evening. [facility] empaglifloz in ([place]) 10 mg 2021-08 00:00: 00 Yes [id number] 10mg Take 1 tablet by mouth in the morning. [facility] METFORMIN 850 mg tablet 2021-08 00:00: 00 Yes [id number] TAKE 1 TABLET BY MOUTH THREE TIMES DAILY [facility] amoxicillin 500 mg tablet 2021-08 00:00: 00 Yes [id number] 500mg Take 1 tablet by mouth in the morning and 1 tablet in the evening. [facility] empaglifloz in ([place]) 10 mg 2021-08 00:00: 00 Yes [id number] 10mg Take 1 tablet by mouth in the morning. [facility] METFORMIN 850 mg tablet 2021-08 00:00: 00 Yes [id number] TAKE 1 TABLET BY MOUTH THREE TIMES DAILY [facility] amoxicillin 500 mg tablet 2021-08 00:00: 00 Yes [id number] 500mg Take 1 tablet by mouth in the morning and 1 tablet in the evening. [facility] empaglifloz in ([place]) 10 mg 2021-08 00:00: 00 Yes [id number] 10mg Take 1 tablet by mouth in the morning. [facility] METFORMIN 850 mg tablet 2021-08 00:00: 00 Yes [id number] TAKE 1 TABLET BY MOUTH THREE TIMES DAILY [facility] amoxicillin 500 mg tablet 2021-08 00:00: 00 Yes [id number] 500mg Take 1 tablet by mouth in the morning and 1 tablet in the evening. [facility] empaglifloz in ([place]) 10 mg 2021-08 00:00: 00 Yes [id number] 10mg Take 1 tablet by mouth in the morning. [facility] METFORMIN 850 mg tablet 2021-08 00:00: 00 Yes [id number] TAKE 1 TABLET BY MOUTH THREE TIMES DAILY [facility] amoxicillin 500 mg tablet 2021-08 00:00: 00 Yes [id number] 500mg Take 1 tablet by mouth in the morning and 1 tablet in the evening. [facility] empaglifloz in ([place]) 10 mg 2021-08 00:00: 00 Yes [id number] 10mg Take 1 tablet by mouth in the morning. [facility] METFORMIN 850 mg tablet 2021-08 00:00: 00 Yes [id number] TAKE 1 TABLET BY MOUTH THREE TIMES DAILY [facility] amoxicillin 500 mg tablet 2021-08 00:00: 00 Yes [id number] 500mg Take 1 tablet by mouth in the morning and 1 tablet in the evening. [facility] empaglifloz in ([place]) 10 mg 2021-08 00:00: 00 Yes [id number] 10mg Take 1 tablet by mouth in the morning. [facility] METFORMIN 850 mg tablet 2021-08 00:00: 00 Yes [id number] TAKE 1 TABLET BY MOUTH THREE TIMES DAILY [facility] amoxicillin 500 mg tablet 2021-08 00:00: 00 Yes [id number] 500mg Take 1 tablet by mouth in the morning and 1 tablet in the evening. [facility] empaglifloz in ([place]) 10 mg 2021-08 00:00: 00 Yes [id number] 10mg Take 1 tablet by mouth in the morning. [facility] METFORMIN 850 mg tablet 2021-08 00:00: 00 Yes [id number] TAKE 1 TABLET BY MOUTH THREE TIMES DAILY [facility] amoxicillin 500 mg tablet 2021-08 00:00: 00 Yes [id number] 500mg Take 1 tablet by mouth in the morning and 1 tablet in the evening. [facility] empaglifloz in ([place]) 10 mg 2021-08 00:00: 00 Yes [id number] 10mg Take 1 tablet by mouth in the morning. [facility] METFORMIN 850 mg tablet 2021-08 00:00: 00 Yes [id number] TAKE 1 TABLET BY MOUTH THREE TIMES DAILY [facility] amoxicillin 500 mg tablet 2021-08 00:00: 00 Yes [id number] 500mg Take 1 tablet by mouth in the morning and 1 tablet in the evening. [facility] empaglifloz in ([place]) 10 mg 2021-08 00:00: 00 Yes [id number] 10mg Take 1 tablet by mouth in the morning. [facility] METFORMIN 850 mg tablet 2021-08 00:00: 00 Yes [id number] TAKE 1 TABLET BY MOUTH THREE TIMES DAILY [facility] amoxicillin 500 mg tablet 2021-08 00:00: 00 Yes [id number] 500mg Take 1 tablet by mouth in the morning and 1 tablet in the evening. [facility] empaglifloz in ([place]) 10 mg 2021-08 00:00: 00 Yes [id number] 10mg Take 1 tablet by mouth in the morning. [facility] METFORMIN 850 mg tablet 2021-08 00:00: 00 Yes [id number] TAKE 1 TABLET BY MOUTH THREE TIMES DAILY [facility] amoxicillin 500 mg tablet 2021-08 0 00:00: 00 Yes [id number] 500mg Take 1 tablet by mouth in the morning and 1 tablet in the evening. [facility] empaglifloz in ([place]) 10 mg 2021-08 0 00:00: 00 Yes [id number] 10mg Take 1 tablet by mouth in the morning. [facility] METFORMIN 850 mg tablet 2021-08 00:00: 00 Yes [id number] TAKE 1 TABLET BY MOUTH THREE TIMES DAILY [facility] amoxicillin 500 mg tablet 2021-08 00:00: 00 Yes [id number] 500mg Take 1 tablet by mouth in the morning and 1 tablet in the evening. [facility] empaglifloz in ([place]) 10 mg 2021-08 00:00: 00 Yes [id number] 10mg Take 1 tablet by mouth in the morning. [facility] amoxicillin 500 mg tablet 2021-08 00:00: 00 Yes [id number] 500mg Take 1 tablet by mouth in the morning and 1 tablet in the evening. [facility] empaglifloz in ([place]) 10 mg 2021-08 00:00: 00 Yes [id number] 10mg Take 1 tablet by mouth in the morning. [facility] amoxicillin 500 mg tablet 2021-08 00:00: 00 Yes [id number] 500mg Take 1 tablet by mouth in the morning and 1 tablet in the evening. [facility] empaglifloz in ([place]) 10 mg 2021-08 00:00: 00 Yes [id number] 10mg Take 1 tablet by mouth in the morning. [facility] amoxicillin 500 mg tablet 2021-08 00:00: 00 Yes [id number] 500mg Take 1 tablet by mouth in the morning and 1 tablet in the evening. [facility] empaglifloz in ([place]) 10 mg 2021- 0 00:00: 00 Yes [id number] 10mg Take 1 tablet by mouth in the morning. [facility] amoxicillin 500 mg tablet 2021- 0- 00:00: 00 Yes [id number] 500mg Take 1 tablet by mouth in the morning and 1 tablet in the evening. [facility] empaglifloz in ([place]) 10 mg 2021- 0- 00:00: 00 Yes [id number] 10mg Take 1 tablet by mouth in the morning. [facility] amoxicillin 500 mg tablet 2021-08 0- 00:00: 00 Yes [id number] 500mg Take 1 tablet by mouth in the morning and 1 tablet in the evening. [facility] empaglifloz in ([place]) 10 mg 2021- 0 00:00: 00 Yes [id number] 10mg Take 1 tablet by mouth in the morning. [facility] amoxicillin 500 mg tablet 2021-08 0 00:00: 00 Yes [id number] 500mg Take 1 tablet by mouth in the morning and 1 tablet in the evening. [facility] empaglifloz in ([place]) 10 mg 2021- 0 00:00: 00 Yes [id number] 10mg Take 1 tablet by mouth in the morning. [facility] amoxicillin 500 mg tablet 2021-08 0 00:00: 00 Yes [id number] 500mg Take 1 tablet by mouth in the morning and 1 tablet in the evening. [facility] empaglifloz in ([place]) 10 mg 2021- 0 00:00: 00 Yes [id number] 10mg Take 1 tablet by mouth in the morning. [facility] amoxicillin 500 mg tablet 2021- 0- 00:00: 00 Yes [id number] 500mg Take 1 tablet by mouth in the morning and 1 tablet in the evening. [facility] empaglifloz in ([place]) 10 mg 2021- 0- 00:00: 00 Yes [id number] 10mg Take 1 tablet by mouth in the morning. [facility] amoxicillin 500 mg tablet 2021- 0- 00:00: 00 Yes [id number] 500mg Take 1 tablet by mouth in the morning and 1 tablet in the evening. [facility] 10 mg 2021- 0- 00:00: 00 Yes [id number] 10mg Take 1 tablet by mouth in the morning. [facility] amoxicillin 500 mg tablet 2021-08 0- 00:00: 00 Yes [id number] 500mg Take 1 tablet by mouth in the morning and 1 tablet in the evening. [facility] empaglifloz in ([place]) 10 mg 2021- 0- 00:00: 00 Yes [id number] 10mg Take 1 tablet by mouth in the morning. [facility] amoxicillin 500 mg tablet 2021- 0- 00:00: 00 Yes [id number] 500mg Take 1 tablet by mouth in the morning and 1 tablet in the evening. [facility] empaglifloz in ([place]) 10 mg 2021- 0- 00:00: 00 Yes [id number] 10mg Take 1 tablet by mouth in the morning. [facility] amoxicillin 500 mg tablet 2021-08 0- 00:00: 00 Yes [id number] 500mg Take 1 tablet by mouth in the morning and 1 tablet in the evening. [facility] empaglifloz in ([place]) 10 mg 2021- 0 00:00: 00 Yes [id number] 10mg Take 1 tablet by mouth in the morning. [facility] amoxicillin 500 mg tablet 2021- 0- 00:00: 00 Yes [id number] 500mg Take 1 tablet by mouth in the morning and 1 tablet in the evening. [facility] empaglifloz in ([place]) 10 mg 2021-1 0- 00:00: 00 Yes [id number] 10mg Take 1 tablet by mouth in the morning. [facility] amoxicillin 500 mg tablet 2021- 0- 00:00: 00 Yes [id number] 500mg Take 1 tablet by mouth in the morning and 1 tablet in the evening. [facility] empaglifloz in ([place]) 10 mg 2021-1 0- 00:00: 00 Yes [id number] 10mg Take 1 tablet by mouth in the morning. [facility] amoxicillin 500 mg tablet 2021-08 0- 00:00: 00 Yes [id number] 500mg Take 1 tablet by mouth in the morning and 1 tablet in the evening. [facility] empaglifloz in ([place]) 10 mg 2021- 0 00:00: 00 Yes [id number] 10mg Take 1 tablet by mouth in the morning. [facility] amoxicillin 500 mg tablet 2021- 0 00:00: 00 Yes [id number] 500mg Take 1 tablet by mouth in the morning and 1 tablet in the evening. [facility] empaglifloz in ([place]) 10 mg 2021- 0 00:00: 00 Yes [id number] 10mg Take 1 tablet by mouth in the morning. [facility] amoxicillin 500 mg tablet 2021-08 0 00:00: 00 Yes [id number] 500mg Take 1 tablet by mouth in the morning and 1 tablet in the evening. [facility] empaglifloz in ([place]) 10 mg 2021- 0 00:00: 00 Yes [id number] 10mg Take 1 tablet by mouth in the morning. [facility] amoxicillin 500 mg tablet 2021-08 0 00:00: 00 Yes [id number] 500mg Take 1 tablet by mouth in the morning and 1 tablet in the evening. [facility] empaglifloz in ([place]) 10 mg 2021- 0 00:00: 00 Yes [id number] 10mg Take 1 tablet by mouth in the morning. [facility] amoxicillin 500 mg tablet 2021- 0- 00:00: 00 Yes [id number] 500mg Take 1 tablet by mouth in the morning and 1 tablet in the evening. [facility] empaglifloz in ([place]) 10 mg 2021-1 0- 00:00: 00 Yes [id number] 10mg Take 1 tablet by mouth in the morning. [facility] amoxicillin 500 mg tablet 2021- 0- 00:00: 00 Yes [id number] 500mg Take 1 tablet by mouth in the morning and 1 tablet in the evening. [facility] em[facility] ([facility]) 10 mg 2021- 0 00:00: 00 Yes [id number] 10mg Take 1 tablet by mouth in the morning. [facility] 500 mg tablet 2021-08 0- 00:00: 00 Yes [id number] 500mg Take 1 tablet by mouth in the morning and 1 tablet in the evening. [facility] empaglifloz in ([place]) 10 mg 2021- 0 00:00: 00 Yes [id number] 10mg Take 1 tablet by mouth in the morning. [facility] amoxicillin 500 mg tablet 2021-08 0 00:00: 00 Yes [id number] 500mg Take 1 tablet by mouth in the morning and 1 tablet in the evening. [facility] empaglifloz in ([place]) 10 mg 2021- 0 00:00: 00 Yes [id number] 10mg Take 1 tablet by mouth in the morning. [facility] amoxicillin 500 mg tablet 2021-08 0 00:00: 00 Yes [id number] 500mg Take 1 tablet by mouth in the morning and 1 tablet in the evening. [facility] empaglifloz in ([place]) 10 mg 2021- 0 00:00: 00 Yes [id number] 10mg Take 1 tablet by mouth in the morning. [facility] amoxicillin 500 mg tablet 2021-08 0 00:00: 00 Yes [id number] 500mg Take 1 tablet by mouth in the morning and 1 tablet in the evening. [facility] empaglifloz in ([place]) 10 mg 2021- 0- 00:00: 00 Yes [id number] 10mg Take 1 tablet by mouth in the morning. [facility] amoxicillin 500 mg tablet 2021- 0- 00:00: 00 Yes [id number] 500mg Take 1 tablet by mouth in the morning and 1 tablet in the evening. [facility] empaglifloz in ([facility]ARDIANCE) 10 mg 2021- 0-21 00:00: 00 Yes [id number] 10mg Take 1 tablet by mouth in the morning. [facility] amoxicillin 500 mg tablet 2021- 0- 00:00: 00 Yes [id number] 500mg Take 1 tablet by mouth in the morning and 1 tablet in the evening. [facility] empaglifloz in ([place]) 10 mg 2021- 0-21 00:00: 00 Yes [id number] 10mg Take 1 tablet by mouth in the morning. [facility] amoxicillin 500 mg tablet 2021-08 0- 00:00: 00 Yes [id number] 500mg Take 1 tablet by mouth in the morning and 1 tablet in the evening. [facility] empaglifloz in ([place]) 10 mg 2021- 0- 00:00: 00 Yes [id number] 10mg Take 1 tablet by mouth in the morning. [facility] amoxicillin 500 mg tablet 2021-08 0- 00:00: 00 Yes [id number] 500mg Take 1 tablet by mouth in the morning and 1 tablet in the evening. [facility] empaglifloz in ([place]) 10 mg 2021- 0- 00:00: 00 Yes [id number] 10mg Take 1 tablet by mouth in the morning. [facility] amoxicillin 500 mg tablet 2021-08 0- 00:00: 00 Yes [id number] 500mg Take 1 tablet by mouth in the morning and 1 tablet in the evening. [facility] empaglifloz in ([place]) 10 mg 2021- 0- 00:00: 00 Yes [id number] 10mg Take 1 tablet by mouth in the morning. [facility] amoxicillin 500 mg tablet 2021- 0- 00:00: 00 Yes [id number] 500mg Take 1 tablet by mouth in the morning and 1 tablet in the evening. [facility] empaglifloz in ([place]) 10 mg 2021-1 0-21 00:00: 00 Yes [id number] 10mg Take 1 tablet by mouth in the morning. [facility] amoxicillin 500 mg tablet 2021-08 0- 00:00: 00 Yes [id number] 500mg Take 1 tablet by mouth in the morning and 1 tablet in the evening. [facility] empaglifloz in ([place]) 10 mg 2021- 0- 00:00: 00 Yes [id number] 10mg Take 1 tablet by mouth in the morning. [facility] amoxicillin 500 mg tablet 2021-08 0- 00:00: 00 Yes [id number] 500mg Take 1 tablet by mouth in the morning and 1 tablet in the evening. [facility] empaglifloz in ([place]) 10 mg 2021- 0- 00:00: 00 Yes [id number] 10mg Take 1 tablet by mouth in the morning. [facility] amoxicillin 500 mg tablet 2021- 0 00:00: 00 Yes [id number] 500mg Take 1 tablet by mouth in the morning and 1 tablet in the evening. [facility] empaglifloz in ([place]) 10 mg 2021- 0 00:00: 00 Yes [id number] 10mg Take 1 tablet by mouth in the morning. [facility] amoxicillin 500 mg tablet 2021- 0- 00:00: 00 Yes [id number] 500mg Take 1 tablet by mouth in the morning and 1 tablet in the evening. [facility] empaglifloz in ([place]) 10 mg 2021- 0 00:00: 00 Yes [id number] 10mg Take 1 tablet by mouth in the morning. [facility] amoxicillin 500 mg tablet 2021- 0 00:00: 00 Yes [id number] 500mg Take 1 tablet by mouth in the morning and 1 tablet in the evening. [facility] empaglifloz in ([place]) 10 mg 2021- 0- 00:00: 00 Yes [id number] 10mg Take 1 tablet by mouth in the morning. [facility] amoxicillin 500 mg tablet 2021- 0- 00:00: 00 Yes [id number] 500mg Take 1 tablet by mouth in the morning and 1 tablet in the evening. [facility] empaglifloz in ([place]) 10 mg 2021- 0 00:00: 00 Yes [id number] 10mg Take 1 tablet by mouth in the morning. [facility] amoxicillin 500 mg tablet 2021-08 0- 00:00: 00 Yes [id number] 500mg Take 1 tablet by mouth in the morning and 1 tablet in the evening. [facility] empaglifloz in ([place]) 10 mg 2021- 0- 00:00: 00 Yes [id number] 10mg Take 1 tablet by mouth in the morning. [facility] amoxicillin 500 mg tablet 2021- 0- 00:00: 00 Yes [id number] 500mg Take 1 tablet by mouth in the morning and 1 tablet in the evening. [facility] empaglifloz in ([place]) 10 mg 2021- 0- 00:00: 00 Yes [id number] 10mg Take 1 tablet by mouth in the morning. [facility] amoxicillin 500 mg tablet 2021- 0 00:00: 00 Yes [id number] 500mg Take 1 tablet by mouth in the morning and 1 tablet in the evening. [facility] empaglifloz in ([place]) 10 mg 2021- 0 00:00: 00 Yes [id number] 10mg Take 1 tablet by mouth in the morning. [facility] amoxicillin 500 mg tablet 2021- 0 00:00: 00 Yes [id number] 500mg Take 1 tablet by mouth in the morning and 1 tablet in the evening. [facility] empaglifloz in ([place]) 10 mg 2021- 0- 00:00: 00 Yes [id number] 10mg Take 1 tablet by mouth in the morning. [facility] amoxicillin 500 mg tablet 2021- 0- 00:00: 00 Yes [id number] 500mg Take 1 tablet by mouth in the morning and 1 tablet in the evening. [facility] empaglifloz in ([place]) 10 mg 2-1 0- 00:00: 00 Yes [id number] 10mg Take 1 tablet by mouth in the morning. [facility] amoxicillin 500 mg tablet 2021-08 0- 00:00: 00 Yes [id number] 500mg Take 1 tablet by mouth in the morning and 1 tablet in the evening. [facility] empaglifloz in ([place]) 10 mg 2021- 0- 00:00: 00 Yes [id number] 10mg Take 1 tablet by mouth in the morning. [facility] amoxicillin 500 mg tablet 2021-08 0- 00:00: 00 Yes [id number] 500mg Take 1 tablet by mouth in the morning and 1 tablet in the evening. [facility] empaglifloz in ([place]) 10 mg 2021- 0- 00:00: 00 Yes [id number] 10mg Take 1 tablet by mouth in the morning. [facility] amoxicillin 500 mg tablet 2021-08 0 00:00: 00 Yes [id number] 500mg Take 1 tablet by mouth in the morning and 1 tablet in the evening. [facility] empaglifloz in ([facility]) 10 mg 2021- 0 00:00: 00 Yes [id number] 10mg Take 1 tablet by mouth in the morning. [facility] amoxicillin 500 mg tablet 2021-08 0 00:00: 00 Yes [id number] 500mg Take 1 tablet by mouth in the morning and 1 tablet in the evening. [facility] empaglifloz in ([place]) 10 mg 2021- 0 00:00: 00 Yes [id number] 10mg Take 1 tablet by mouth in the morning. [facility] amoxicillin 500 mg tablet 2021- 0- 00:00: 00 Yes [id number] 500mg Take 1 tablet by mouth in the morning and 1 tablet in the evening. [facility] empaglifloz in ([place]) 10 mg 2021- 0- 00:00: 00 Yes [id number] 10mg Take 1 tablet by mouth in the morning. [facility] amoxicillin 500 mg tablet 2021- 0- 00:00: 00 Yes [id number] 500mg Take 1 tablet by mouth in the morning and 1 tablet in the evening. [facility] empaglifloz in ([place]) 10 mg 2021- 0- 00:00: 00 Yes [id number] 10mg Take 1 tablet by mouth in the morning. [facility] amoxicillin 500 mg tablet 2021- 0- 00:00: 00 Yes [id number] 500mg Take 1 tablet by mouth in the morning and 1 tablet in the evening. [facility] empaglifloz in ([place]) 10 mg 2021- 0- 00:00: 00 Yes [id number] 10mg Take 1 tablet by mouth in the morning. [facility] amoxicillin 500 mg tablet 2021-08 0- 00:00: 00 Yes [id number] 500mg Take 1 tablet by mouth in the morning and 1 tablet in the evening. [facility] empaglifloz in ([place]) 10 mg 2021- 0- 00:00: 00 Yes [id number] 10mg Take 1 tablet by mouth in the morning. [facility] amoxicillin 500 mg tablet 2021-08 0 00:00: 00 Yes [id number] 500mg Take 1 tablet by mouth in the morning and 1 tablet in the evening. [facility] empaglifloz in ([place]) 10 mg 2021- 0 00:00: 00 Yes [id number] 10mg Take 1 tablet by mouth in the morning. [facility] amoxicillin 500 mg tablet 2021- 0 00:00: 00 Yes [id number] 500mg Take 1 tablet by mouth in the morning and 1 tablet in the evening. [facility] empaglifloz in ([place]ARDIANCE) 10 mg 2021- 0- 00:00: 00 Yes [id number] 10mg Take 1 tablet by mouth in the morning. [facility] amoxicillin 500 mg tablet 2021- 0- 00:00: 00 Yes [id number] 500mg Take 1 tablet by mouth in the morning and 1 tablet in the evening. [facility] empaglifloz in ([place]) 10 mg 2021-1 0- 00:00: 00 Yes [id number] 10mg Take 1 tablet by mouth in the morning. [facility] amoxicillin 500 mg tablet 2021-08 0- 00:00: 00 Yes [id number] 500mg Take 1 tablet by mouth in the morning and 1 tablet in the evening. [facility] empaglifloz in ([place]) 10 mg 2021- 0- 00:00: 00 Yes [id number] 10mg Take 1 tablet by mouth in the morning. [facility] amoxicillin 500 mg tablet 2021-08 0 00:00: 00 Yes [id number] 500mg Take 1 tablet by mouth in the morning and 1 tablet in the evening. [facility] empaglifloz in ([place]) 10 mg 2021- 0 00:00: 00 Yes [id number] 10mg Take 1 tablet by mouth in the morning. [facility] amoxicillin 500 mg tablet 2021-08 0 00:00: 00 Yes [id number] 500mg Take 1 tablet by mouth in the morning and 1 tablet in the evening. [facility] empaglifloz in ([place]) 10 mg 2021- 0 00:00: 00 Yes [id number] 10mg Take 1 tablet by mouth in the morning. [facility] amoxicillin 500 mg tablet 2021-08 0 00:00: 00 Yes [id number] 500mg Take 1 tablet by mouth in the morning and 1 tablet in the evening. [facility] empaglifloz in ([place]) 10 mg 2021- 0 00:00: 00 Yes [id number] 10mg Take 1 tablet by mouth in the morning. [facility] amoxicillin 500 mg tablet 2021- 0- 00:00: 00 Yes [id number] 500mg Take 1 tablet by mouth in the morning and 1 tablet in the evening. [facility] empaglifloz in ([place]) 10 mg 2021-1 0- 00:00: 00 Yes [id number] 10mg Take 1 tablet by mouth in the morning. [facility] amoxicillin 500 mg tablet 2021- 0 00:00: 00 Yes [id number] 500mg Take 1 tablet by mouth in the morning and 1 tablet in the evening. [facility] empaglifloz in ([place]) 10 mg 2021- 0- 00:00: 00 Yes [id number] 10mg Take 1 tablet by mouth in the morning. [facility] amoxicillin 500 mg tablet 2021- 0- 00:00: 00 Yes [id number] 500mg Take 1 tablet by mouth in the morning and 1 tablet in the evening. [facility] empaglifloz in ([place]) 10 mg 2021- 0- 00:00: 00 Yes [id number] 10mg Take 1 tablet by mouth in the morning. [facility] amoxicillin 500 mg tablet 2021- 0- 00:00: 00 Yes [id number] 500mg Take 1 tablet by mouth in the morning and 1 tablet in the evening. [facility] empaglifloz in ([place]) 10 mg 2021- 0- 00:00: 00 Yes [id number] 10mg Take 1 tablet by mouth in the morning. [facility] amoxicillin 500 mg tablet 2021- 0- 00:00: 00 Yes [id number] 500mg Take 1 tablet by mouth in the morning and 1 tablet in the evening. [facility] empaglifloz in ([place]) 10 mg 2021- 0- 00:00: 00 Yes [id number] 10mg Take 1 tablet by mouth in the morning. [facility] amoxicillin 500 mg tablet 2021- 0- 00:00: 00 Yes [id number] 500mg Take 1 tablet by mouth in the morning and 1 tablet in the evening. [facility] empaglifloz in ([place]) 10 mg 2-1 0- 00:00: 00 Yes [id number] 10mg Take 1 tablet by mouth in the morning. [facility] amoxicillin 500 mg tablet 2021- 0- 00:00: 00 Yes [id number] 500mg Take 1 tablet by mouth in the morning and 1 tablet in the evening. [facility] empaglifloz in ([place]) 10 mg 2021- 0-21 00:00: 00 Yes [id number] 10mg Take 1 tablet by mouth in the morning. [facility] amoxicillin 500 mg tablet 2021-08 0- 00:00: 00 Yes [id number] 500mg Take 1 tablet by mouth in the morning and 1 tablet in the evening. [facility] empaglifloz in ([place]) 10 mg 2021- 0- 00:00: 00 Yes [id number] 10mg Take 1 tablet by mouth in the morning. [facility] amoxicillin 500 mg tablet 2021-08 0- 00:00: 00 Yes [id number] 500mg Take 1 tablet by mouth in the morning and 1 tablet in the evening. [facility] empaglifloz in ([place]) 10 mg 2021- 0- 00:00: 00 Yes [id number] 10mg Take 1 tablet by mouth in the morning. [facility] amoxicillin 500 mg tablet 2021-08 0 00:00: 00 Yes [id number] 500mg Take 1 tablet by mouth in the morning and 1 tablet in the evening. [facility] empaglifloz in ([place]) 10 mg 2021- 0 00:00: 00 Yes [id number] 10mg Take 1 tablet by mouth in the morning. [facility] amoxicillin 500 mg tablet 2021-08 0 00:00: 00 Yes [id number] 500mg Take 1 tablet by mouth in the morning and 1 tablet in the evening. [facility] empaglifloz in ([place]) 10 mg 2021- 0- 00:00: 00 Yes [id number] 10mg Take 1 tablet by mouth in the morning. [facility] amoxicillin 500 mg tablet 2021- 0- 00:00: 00 Yes [id number] 500mg Take 1 tablet by mouth in the morning and 1 tablet in the evening. [facility] empaglifloz in ([place]) 10 mg 2021-1 0- 00:00: 00 Yes [id number] 10mg Take 1 tablet by mouth in the morning. [facility] amoxicillin 500 mg tablet 2021-08 0 00:00: 00 Yes [id number] 500mg Take 1 tablet by mouth in the morning and 1 tablet in the evening. [facility] empaglifloz in ([place]) 10 mg 2021- 0- 00:00: 00 Yes [id number] 10mg Take 1 tablet by mouth in the morning. [facility] amoxicillin 500 mg tablet 2021-08 0- 00:00: 00 Yes [id number] 500mg Take 1 tablet by mouth in the morning and 1 tablet in the evening. [facility] empaglifloz in ([place]) 10 mg 2021- 0 00:00: 00 Yes [id number] 10mg Take 1 tablet by mouth in the morning. [facility] amoxicillin 500 mg tablet 2021-08 0 00:00: 00 Yes [id number] 500mg Take 1 tablet by mouth in the morning and 1 tablet in the evening. [facility] empaglifloz in ([place]) 10 mg 2021- 0 00:00: 00 Yes [id number] 10mg Take 1 tablet by mouth in the morning. [facility] amoxicillin 500 mg tablet 2021-08 0 00:00: 00 Yes [id number] 500mg Take 1 tablet by mouth in the morning and 1 tablet in the evening. [facility] empaglifloz in ([place]) 10 mg 2021- 0 00:00: 00 Yes [id number] 10mg Take 1 tablet by mouth in the morning. [facility] amoxicillin 500 mg tablet 2021-08 0 00:00: 00 Yes [id number] 500mg Take 1 tablet by mouth in the morning and 1 tablet in the evening. [facility] empaglifloz in ([place]) 10 mg 2021- 0- 00:00: 00 Yes [id number] 10mg Take 1 tablet by mouth in the morning. [facility] amoxicillin 500 mg tablet 2021- 0- 00:00: 00 Yes [id number] 500mg Take 1 tablet by mouth in the morning and 1 tablet in the evening. [facility] empaglifloz in ([place]) 10 mg 2021-1 0-21 00:00: 00 Yes [id number] 10mg Take 1 tablet by mouth in the morning. [facility] amoxicillin 500 mg tablet 2021- 0- 00:00: 00 Yes [id number] 500mg Take 1 tablet by mouth in the morning and 1 tablet in the evening. [facility] empaglifloz in ([place]) 10 mg 2021-1 0- 00:00: 00 Yes [id number] 10mg Take 1 tablet by mouth in the morning. [facility] amoxicillin 500 mg tablet 2021- 0- 00:00: 00 Yes [id number] 500mg Take 1 tablet by mouth in the morning and 1 tablet in the evening. [facility] empaglifloz in ([place]) 10 mg 2021- 0- 00:00: 00 Yes [id number] 10mg Take 1 tablet by mouth in the morning. [facility] amoxicillin 500 mg tablet 2021-08 0- 00:00: 00 Yes [id number] 500mg Take 1 tablet by mouth in the morning and 1 tablet in the evening. [facility] empaglifloz in ([place]) 10 mg 2021-1 0- 00:00: 00 Yes [id number] 10mg Take 1 tablet by mouth in the morning. [facility] amoxicillin 500 mg tablet 2021- 0- 00:00: 00 Yes [id number] 500mg Take 1 tablet by mouth in the morning and 1 tablet in the evening. [facility] empaglifloz in ([place]) 10 mg 2021- 0- 00:00: 00 Yes [id number] 10mg Take 1 tablet by mouth in the morning. [facility] amoxicillin 500 mg tablet 2021- 0- 00:00: 00 Yes [id number] 500mg Take 1 tablet by mouth in the morning and 1 tablet in the evening. [facility] empaglifloz in ([place]) 10 mg 2-1 0-21 00:00: 00 Yes [id number] 10mg Take 1 tablet by mouth in the morning. [facility] amoxicillin 500 mg tablet 2021-08 0-21 00:00: 00 Yes [id number] 500mg Take 1 tablet by mouth in the morning and 1 tablet in the evening. [facility] empaglifloz in ([place]) 10 mg 2021- 0- 00:00: 00 Yes [id number] 10mg Take 1 tablet by mouth in the morning. [facility] amoxicillin 500 mg tablet 2021-08 0- 00:00: 00 Yes [id number] 500mg Take 1 tablet by mouth in the morning and 1 tablet in the evening. [facility] empaglifloz in ([place]) 10 mg 2021- 0- 00:00: 00 Yes [id number] 10mg Take 1 tablet by mouth in the morning. [facility] amoxicillin 500 mg tablet 2021-08 0 00:00: 00 Yes [id number] 500mg Take 1 tablet by mouth in the morning and 1 tablet in the evening. [facility] empaglifloz in ([place]) 10 mg 2021- 0 00:00: 00 Yes [id number] 10mg Take 1 tablet by mouth in the morning. [facility] amoxicillin 500 mg tablet 2021-08 0 00:00: 00 Yes [id number] 500mg Take 1 tablet by mouth in the morning and 1 tablet in the evening. [facility] empaglifloz in ([place]) 10 mg 2021- 0- 00:00: 00 Yes [id number] 10mg Take 1 tablet by mouth in the morning. [facility] empaglifloz in ([place]) 10 mg 2021-1 0- 00:00: 00 Yes [id number] 10mg Take 1 tablet by mouth in the morning. [facility] empaglifloz in ([place]) 10 mg 2021-1 0-21 00:00: 00 Yes [id number] 10mg Take 1 tablet by mouth in the morning. [facility] empaglifloz in ([place]) 10 mg 2- 0-21 00:00: 07-10 00:00 :00 No [id number] 10mg Take 1 tablet by mouth in the morning. [facility] empaglifloz in ([place]) 10 mg 2021-08 00:00: 00 07-10 00:00 :00 No [id number] 10mg Take 1 tablet by mouth in the morning. [facility] amoxicillin 500 mg tablet 2021-08 00:00: 00 07-09 00:00 :00 No [id number] 500mg Take 1 tablet by mouth in the morning and 1 tablet in the evening. [facility] amoxicillin 500 mg tablet 2021-08 00:00: 00 07-09 00:00 :00 No [id number] 500mg Take 1 tablet by mouth in the morning and 1 tablet in the evening. [facility] METFORMIN 850 mg tablet 2021-08 00:00: 00 12-06 00:00 :00 No [id number] TAKE 1 TABLET BY MOUTH THREE TIMES DAILY [facility] GLIPIZIDE XL 5 mg 24 hr tablet 2021-08 00:00: 00 09-22 00:00 :00 No [id number] 5mg TAKE 1 TABLET BY MOUTH DAILY WITH BREAKFAST [facility] ALBUTEROL 90 mcg/actuati on inhaler 2021-08 00:00: 00 09-10 00:00 :00 No [id number] INHALE 2 PUFFS BY MOUTH EVERY 6 HOURS NEEDED FOR WHEEZING, SHORTNESS OF BREATH OR BRONCHOSPA [facility] ALBUTEROL 90 mcg/actuati on inhaler 2021-08 00:00: 00 09-10 00:00 :00 No [id number] INHALE 2 PUFFS BY MOUTH EVERY 6 HOURS NEEDED FOR WHEEZING, SHORTNESS OF BREATH OR BRONCHOSPA [facility] QUINAPRIL 40 mg tablet 2021-08 00:00: 00 07-09 00:00 :00 No [id number] 40mg TAKE 1 TABLET BY MOUTH EVERY MORNING [facility] QUINAPRIL 40 mg tablet 2021-08 00:00: 00 07-09 00:00 :00 No [id number] 40mg TAKE 1 TABLET BY MOUTH EVERY MORNING [facility] HYDROcodone -acetaminop hen 7.5-325 mg per tablet 2021-08 00:00: 00 Yes [id number] 1{tbl} Take 1 tablet by mouth every 6 (six) hours as needed for Pain. Indication s: chronic pain [facility] HYDROcodone -acetaminop hen 7.5-325 mg per tablet 2021-08 0 00:00: 00 Yes [id number] 1{tbl} Take 1 tablet by mouth every 6 (six) hours as needed for Pain. Indication s: chronic pain [facility] HYDROcodone -acetaminop hen 7.5-325 mg per tablet 2021-08 00:00: 00 Yes [id number] 1{tbl} Take 1 tablet by mouth every 6 (six) hours as needed for Pain. Indication s: chronic pain [facility] HYDROcodone -acetaminop hen 7.5-325 mg per tablet 2021-08 00:00: 00 Yes [id number] 1{tbl} Take 1 tablet by mouth every 6 (six) hours as needed for Pain. Indication s: chronic pain [facility] HYDROcodone -acetaminop hen 7.5-325 mg per tablet 2021-08 00:00: 00 Yes [id number] 1{tbl} Take 1 tablet by mouth every 6 (six) hours as needed for Pain. Indication s: chronic pain [facility] HYDROcodone -acetaminop hen 7.5-325 mg per tablet 2021-08 0 00:00: 00 Yes [id number] 1{tbl} Take 1 tablet by mouth every 6 (six) hours as needed for Pain. Indication s: chronic pain [facility] HYDROcodone -acetaminop hen 7.5-325 mg per tablet 2021-08 0 00:00: 00 Yes [id number] 1{tbl} Take 1 tablet by mouth every 6 (six) hours as needed for Pain. Indication s: chronic pain [facility] HYDROcodone -acetaminop hen 7.5-325 mg per tablet 2021-08 0-05 00:00: 00 Yes [id number] 1{tbl} Take 1 tablet by mouth every 6 (six) hours as needed for Pain. Indication s: chronic pain [facility] HYDROcodone -acetaminop hen 7.5-325 mg per tablet 2021-08 0 00:00: 00 Yes [id number] 1{tbl} Take 1 tablet by mouth every 6 (six) hours as needed for Pain. Indication s: chronic pain [facility] HYDROcodone -acetaminop hen 7.5-325 mg per tablet 2021-08 0 00:00: 00 Yes [id number] 1{tbl} Take 1 tablet by mouth every 6 (six) hours as needed for Pain. Indication s: chronic pain [facility] HYDROcodone -acetaminop hen 7.5-325 mg per tablet 2021-08 00:00: 00 Yes [id number] 1{tbl} Take 1 tablet by mouth every 6 (six) hours as needed for Pain. Indication s: chronic pain [facility] HYDROcodone -acetaminop hen 7.5-325 mg per tablet 2021-08 00:00: 00 Yes [id number] 1{tbl} Take 1 tablet by mouth every 6 (six) hours as needed for Pain. Indication s: chronic pain [facility] HYDROcodone -acetaminop hen 7.5-325 mg per tablet 2021-08 00:00: 00 Yes [id number] 1{tbl} Take 1 tablet by mouth every 6 (six) hours as needed for Pain. Indication s: chronic pain [facility] HYDROcodone -acetaminop hen 7.5-325 mg per tablet 2021-08 005 00:00: 00 Yes [id number] 1{tbl} Take 1 tablet by mouth every 6 (six) hours as needed for Pain. Indication s: chronic pain [facility] HYDROcodone -acetaminop hen 7.5-325 mg per tablet 2021-08 0 00:00: 00 Yes [id number] 1{tbl} Take 1 tablet by mouth every 6 (six) hours as needed for Pain. Indication s: chronic pain [facility] HYDROcodone -acetaminop hen 7.5-325 mg per tablet 2021-08 0 00:00: 00 Yes [id number] 1{tbl} Take 1 tablet by mouth every 6 (six) hours as needed for Pain. Indication s: chronic pain [facility] HYDROcodone -acetaminop hen 7.5-325 mg per tablet 2021-08 0 00:00: 00 Yes [id number] 1{tbl} Take 1 tablet by mouth every 6 (six) hours as needed for Pain. Indication s: chronic pain [facility] HYDROcodone -acetaminop hen 7.5-325 mg per tablet 2021-08 0 00:00: 00 Yes [id number] 1{tbl} Take 1 tablet by mouth every 6 (six) hours as needed for Pain. Indication s: chronic pain [facility] HYDROcodone -acetaminop hen 7.5-325 mg per tablet 2021-08 00:00: 00 Yes [id number] 1{tbl} Take 1 tablet by mouth every 6 (six) hours as needed for Pain. Indication s: chronic pain [facility] HYDROcodone -acetaminop hen 7.5-325 mg per tablet 2021-08 0 00:00: 00 Yes [id number] 1{tbl} Take 1 tablet by mouth every 6 (six) hours as needed for Pain. Indication s: chronic pain [facility] HYDROcodone -acetaminop hen 7.5-325 mg per tablet 2021-08 0 00:00: 00 06-04 00:00 :00 No [id number] 1{tbl} Take 1 tablet by mouth every 6 (six) hours as needed for Pain. Indication s: chronic pain [facility] gabapentin 300 mg capsule 04-29 00:00: 00 Yes [id number] TAKE 1 CAPSULE BY MOUTH FOUR TIMES DAILY [facility] gabapentin 300 mg capsule 04-29 00:00: 00 Yes [id number] TAKE 1 CAPSULE BY MOUTH FOUR TIMES DAILY [facility] gabapentin 300 mg capsule 04-29 00:00: 00 Yes [id number] TAKE 1 CAPSULE BY MOUTH FOUR TIMES DAILY [facility] gabapentin 300 mg capsule 04-29 00:00: 00 Yes [id number] TAKE 1 CAPSULE BY MOUTH FOUR TIMES DAILY [facility] gabapentin 300 mg capsule 2-0 27 00:00: 00 Yes [id number] TAKE 1 CAPSULE BY MOUTH FOUR TIMES DAILY [facility] gabapentin 300 mg capsule 2-0 - 00:00: 00 Yes [id number] TAKE 1 CAPSULE BY MOUTH FOUR TIMES DAILY [facility] gabapentin 300 mg capsule 2-0 - 00:00: 00 Yes [id number] TAKE 1 CAPSULE BY MOUTH FOUR TIMES DAILY [facility] gabapentin 300 mg capsule 2-0 9- 00:00: 00 Yes [id number] TAKE 1 CAPSULE BY MOUTH FOUR TIMES DAILY [facility] gabapentin 300 mg capsule 2-0 - 00:00: 00 Yes [id number] TAKE 1 CAPSULE BY MOUTH FOUR TIMES DAILY [facility] gabapentin 300 mg capsule 2-0 -27 00:00: 00 Yes [id number] TAKE 1 CAPSULE BY MOUTH FOUR TIMES DAILY [facility] gabapentin 300 mg capsule 2-0 927 00:00: 00 Yes [id number] TAKE 1 CAPSULE BY MOUTH FOUR TIMES DAILY [facility] gabapentin 300 mg capsule 2-0 27 00:00: 00 Yes [id number] TAKE 1 CAPSULE BY MOUTH FOUR TIMES DAILY [facility] gabapentin 300 mg capsule 2-0 -27 00:00: 00 Yes [id number] TAKE 1 CAPSULE BY MOUTH FOUR TIMES DAILY [facility] gabapentin 300 mg capsule 2-0 27 00:00: 00 Yes [id number] TAKE 1 CAPSULE BY MOUTH FOUR TIMES DAILY [facility] gabapentin 300 mg capsule 2-0 27 00:00: 00 Yes [id number] TAKE 1 CAPSULE BY MOUTH FOUR TIMES DAILY [facility] gabapentin 300 mg capsule 2-0 9-27 00:00: 00 Yes [id number] TAKE 1 CAPSULE BY MOUTH FOUR TIMES DAILY [facility] gabapentin 300 mg capsule 2-0 -27 00:00: 00 Yes [id number] TAKE 1 CAPSULE BY MOUTH FOUR TIMES DAILY [facility] gabapentin 300 mg capsule 2-0 9-27 00:00: 00 Yes [id number] TAKE 1 CAPSULE BY MOUTH FOUR TIMES DAILY [facility] gabapentin 300 mg capsule 2-0 04-29 00:00: 00 Yes [id number] TAKE 1 CAPSULE BY MOUTH FOUR TIMES DAILY [facility] gabapentin 300 mg capsule 2-0 04-29 00:00: 00 Yes [id number] TAKE 1 CAPSULE BY MOUTH FOUR TIMES DAILY [facility] gabapentin 300 mg capsule 2-0 04-29 00:00: 00 Yes [id number] TAKE 1 CAPSULE BY MOUTH FOUR TIMES DAILY [facility] gabapentin 300 mg capsule 2-0 04-29 00:00: 00 Yes [id number] TAKE 1 CAPSULE BY MOUTH FOUR TIMES DAILY [facility] gabapentin 300 mg capsule 2-0 04-29 00:00: 00 Yes [id number] TAKE 1 CAPSULE BY MOUTH FOUR TIMES DAILY [facility] gabapentin 300 mg capsule 2-0 27 00:00: 00 Yes [id number] TAKE 1 CAPSULE BY MOUTH FOUR TIMES DAILY [facility] gabapentin 300 mg capsule 2-0 9 00:00: 00 Yes [id number] TAKE 1 CAPSULE BY MOUTH FOUR TIMES DAILY [facility] gabapentin 300 mg capsule 2-0 04-29 00:00: 00 Yes [id number] TAKE 1 CAPSULE BY MOUTH FOUR TIMES DAILY [facility] gabapentin 300 mg capsule 2-0 04-29 00:00: 00 Yes [id number] TAKE 1 CAPSULE BY MOUTH FOUR TIMES DAILY [facility] gabapentin 300 mg capsule 2-0 27 00:00: 00 Yes [id number] TAKE 1 CAPSULE BY MOUTH FOUR TIMES DAILY [facility] gabapentin 300 mg capsule 2-0 27 00:00: 00 Yes [id number] TAKE 1 CAPSULE BY MOUTH FOUR TIMES DAILY [facility] gabapentin 300 mg capsule 2-0 9 00:00: 00 Yes [id number] TAKE 1 CAPSULE BY MOUTH FOUR TIMES DAILY [facility] gabapentin 300 mg capsule 2-0 -27 00:00: 00 Yes [id number] TAKE 1 CAPSULE BY MOUTH FOUR TIMES DAILY [facility] gabapentin 300 mg capsule 2-0 9-27 00:00: 00 Yes [id number] TAKE 1 CAPSULE BY MOUTH FOUR TIMES DAILY [facility] gabapentin 300 mg capsule 2-0 04-29 00:00: 00 Yes [id number] TAKE 1 CAPSULE BY MOUTH FOUR TIMES DAILY [facility] gabapentin 300 mg capsule 2-0 04-29 00:00: 00 Yes [id number] TAKE 1 CAPSULE BY MOUTH FOUR TIMES DAILY [facility] gabapentin 300 mg capsule 2-0 04-29 00:00: 00 Yes [id number] TAKE 1 CAPSULE BY MOUTH FOUR TIMES DAILY [facility] gabapentin 300 mg capsule 2-0 04-29 00:00: 00 Yes [id number] TAKE 1 CAPSULE BY MOUTH FOUR TIMES DAILY [facility] gabapentin 300 mg capsule 2-0 04-29 00:00: 00 Yes [id number] TAKE 1 CAPSULE BY MOUTH FOUR TIMES DAILY [facility] gabapentin 300 mg capsule 2-0 04-29 00:00: 00 Yes [id number] TAKE 1 CAPSULE BY MOUTH FOUR TIMES DAILY [facility] gabapentin 300 mg capsule 2-0 04-29 00:00: 00 Yes [id number] TAKE 1 CAPSULE BY MOUTH FOUR TIMES DAILY [facility] gabapentin 300 mg capsule 2-0 04-29 00:00: 00 Yes [id number] TAKE 1 CAPSULE BY MOUTH FOUR TIMES DAILY [facility] gabapentin 300 mg capsule 2-0 04-29 00:00: 00 Yes [id number] TAKE 1 CAPSULE BY MOUTH FOUR TIMES DAILY [facility] gabapentin 300 mg capsule 2-0 04-29 00:00: 00 Yes [id number] TAKE 1 CAPSULE BY MOUTH FOUR TIMES DAILY [facility] gabapentin 300 mg capsule 2-0 04-29 00:00: 00 Yes [id number] TAKE 1 CAPSULE BY MOUTH FOUR TIMES DAILY [facility] gabapentin 300 mg capsule 2-0 04-29 00:00: 00 Yes [id number] TAKE 1 CAPSULE BY MOUTH FOUR TIMES DAILY [facility] gabapentin 300 mg capsule 2-0 04-29 00:00: 00 Yes [id number] TAKE 1 CAPSULE BY MOUTH FOUR TIMES DAILY [facility] gabapentin 300 mg capsule 2-0 04-29 00:00: 00 Yes [id number] TAKE 1 CAPSULE BY MOUTH FOUR TIMES DAILY [facility] gabapentin 300 mg capsule 2-0 04-29 00:00: 00 Yes [id number] TAKE 1 CAPSULE BY MOUTH FOUR TIMES DAILY [facility] gabapentin 300 mg capsule 2-0 04-29 00:00: 00 Yes [id number] TAKE 1 CAPSULE BY MOUTH FOUR TIMES DAILY [facility] [facility] gabapentin 300 mg capsule 2-0 04-29 00:00: 00 Yes [id number] TAKE 1 CAPSULE BY MOUTH FOUR TIMES DAILY [facility] gabapentin 300 mg capsule 2-0 - 00:00: 00 Yes [id number] TAKE 1 CAPSULE BY MOUTH FOUR TIMES DAILY [facility] gabapentin 300 mg capsule 2-0 04-29 00:00: 00 Yes [id number] TAKE 1 CAPSULE BY MOUTH FOUR TIMES DAILY [facility] gabapentin 300 mg capsule 2-0 04-29 00:00: 00 Yes [id number] TAKE 1 CAPSULE BY MOUTH FOUR TIMES DAILY [facility] gabapentin 300 mg capsule 2-0 04-29 00:00: 00 Yes [id number] TAKE 1 CAPSULE BY MOUTH FOUR TIMES DAILY [facility] gabapentin 300 mg capsule 2-0 04-29 00:00: 00 Yes [id number] TAKE 1 CAPSULE BY MOUTH FOUR TIMES DAILY [facility] gabapentin 300 mg capsule 2-0 04-29 00:00: 00 Yes [id number] TAKE 1 CAPSULE BY MOUTH FOUR TIMES DAILY [facility] gabapentin 300 mg capsule 2-0 27 00:00: 00 Yes [id number] TAKE 1 CAPSULE BY MOUTH FOUR TIMES DAILY [facility] gabapentin 300 mg capsule 2-0 27 00:00: 00 Yes [id number] TAKE 1 CAPSULE BY MOUTH FOUR TIMES DAILY [facility] gabapentin 300 mg capsule 2-0 04-29 00:00: 00 Yes [id number] TAKE 1 CAPSULE BY MOUTH FOUR TIMES DAILY [facility] gabapentin 300 mg capsule 2-0 27 00:00: 00 Yes [id number] TAKE 1 CAPSULE BY MOUTH FOUR TIMES DAILY [facility] gabapentin 300 mg capsule 04-29 00:00: 00 Yes [id number] TAKE 1 CAPSULE BY MOUTH FOUR TIMES DAILY [facility] gabapentin 300 mg capsule 04-29 00:00: 00 07-22 00:00 :00 No [id number] TAKE 1 CAPSULE BY MOUTH FOUR TIMES DAILY [facility] clonazePAM 1 mg tablet 04-28 00:00: 00 Yes [id number] 1mg Take 1 tablet by mouth in the morning and 1 tablet at noon and 1 tablet in the evening. [facility] clonazePAM 1 mg tablet 04-28 00:00: 00 Yes [id number] 1mg Take 1 tablet by mouth in the morning and 1 tablet at noon and 1 tablet in the evening. [facility] clonazePAM 1 mg tablet 04-28 00:00: 00 Yes [id number] 1mg Take 1 tablet by mouth in the morning and 1 tablet at noon and 1 tablet in the evening. [facility] clonazePAM 1 mg tablet 04-28 00:00: 00 Yes [id number] 1mg Take 1 tablet by mouth in the morning and 1 tablet at noon and 1 tablet in the evening. [facility] clonazePAM 1 mg tablet 04-28 00:00: 00 Yes [id number] 1mg Take 1 tablet by mouth in the morning and 1 tablet at noon and 1 tablet in the evening. [facility] clonazePAM 1 mg tablet 04-28 00:00: 00 Yes [id number] 1mg Take 1 tablet by mouth in the morning and 1 tablet at noon and 1 tablet in the evening. [facility] clonazePAM 1 mg tablet 04-28 00:00: 00 Yes [id number] 1mg Take 1 tablet by mouth in the morning and 1 tablet at noon and 1 tablet in the evening. [facility] clonazePAM 1 mg tablet 04-28 00:00: 00 Yes [id number] 1mg Take 1 tablet by mouth in the morning and 1 tablet at noon and 1 tablet in the evening. [facility] clonazePAM 1 mg tablet 04-28 00:00: 00 Yes [id number] 1mg Take 1 tablet by mouth in the morning and 1 tablet at noon and 1 tablet in the evening. [facility] clonazePAM 1 mg tablet 04-28 00:00: 00 Yes [id number] 1mg Take 1 tablet by mouth in the morning and 1 tablet at noon and 1 tablet in the evening. [facility] clonazePAM 1 mg tablet 04-28 00:00: 00 Yes [id number] 1mg Take 1 tablet by mouth in the morning and 1 tablet at noon and 1 tablet in the evening. [facility] clonazePAM 1 mg tablet 04-28 00:00: 00 Yes [id number] 1mg Take 1 tablet by mouth in the morning and 1 tablet at noon and 1 tablet in the evening. [facility] clonazePAM 1 mg tablet 04-28 00:00: 00 Yes [id number] 1mg Take 1 tablet by mouth in the morning and 1 tablet at noon and 1 tablet in the evening. [facility] clonazePAM 1 mg tablet 04-28 00:00: 00 Yes [id number] 1mg Take 1 tablet by mouth in the morning and 1 tablet at noon and 1 tablet in the evening. [facility] clonazePAM 1 mg tablet 04-28 00:00: 00 Yes [id number] 1mg Take 1 tablet by mouth in the morning and 1 tablet at noon and 1 tablet in the evening. [facility] clonazePAM 1 mg tablet 2021-0 04-28 00:00: 00 Yes [id number] 1mg Take 1 tablet by mouth in the morning and 1 tablet at noon and 1 tablet in the evening. [facility] clonazePAM 1 mg tablet 2021-0 04-28 00:00: 00 Yes [id number] 1mg Take 1 tablet by mouth in the morning and 1 tablet at noon and 1 tablet in the evening. [facility] clonazePAM 1 mg tablet 2021-0 04-28 00:00: 00 Yes [id number] 1mg Take 1 tablet by mouth in the morning and 1 tablet at noon and 1 tablet in the evening. [facility] clonazePAM 1 mg tablet 2021-0 04-28 00:00: 00 Yes [id number] 1mg Take 1 tablet by mouth in the morning and 1 tablet at noon and 1 tablet in the evening. [facility] 2021-0 04-28 00:00: 00 Yes [id number] 1mg Take 1 tablet by mouth in the morning and 1 tablet at noon and 1 tablet in the evening. [facility] clonazePAM 1 mg tablet 2021-0 04-28 00:00: 00 Yes [id number] 1mg Take 1 tablet by mouth in the morning and 1 tablet at noon and 1 tablet in the evening. [facility] clonazePAM 1 mg tablet 2021-0 04-28 00:00: 00 Yes [id number] 1mg Take 1 tablet by mouth in the morning and 1 tablet at noon and 1 tablet in the evening. [facility] clonazePAM 1 mg tablet 2021-0 04-28 00:00: 00 Yes [id number] 1mg Take 1 tablet by mouth in the morning and 1 tablet at noon and 1 tablet in the evening. [facility] clonazePAM 1 mg tablet 2021-0 04-28 00:00: 00 Yes [id number] 1mg Take 1 tablet by mouth in the morning and 1 tablet at noon and 1 tablet in the evening. [facility] clonazePAM 1 mg tablet 2021-0 04-28 00:00: 00 Yes [id number] 1mg Take 1 tablet by mouth in the morning and 1 tablet at noon and 1 tablet in the evening. [facility] clonazePAM 1 mg tablet 2021-0 04-28 00:00: 00 Yes [id number] 1mg Take 1 tablet by mouth in the morning and 1 tablet at noon and 1 tablet in the evening. [facility] clonazePAM 1 mg tablet 2021-0 04-28 00:00: 00 Yes [id number] 1mg Take 1 tablet by mouth in the morning and 1 tablet at noon and 1 tablet in the evening. [facility] clonazePAM 1 mg tablet 2-0 04-28 00:00: 00 Yes [id number] 1mg Take 1 tablet by mouth in the morning and 1 tablet at noon and 1 tablet in the evening. [facility] clonazePAM 1 mg tablet 2021-0 04-28 00:00: 00 Yes [id number] 1mg Take 1 tablet by mouth in the morning and 1 tablet at noon and 1 tablet in the evening. [facility] clonazePAM 1 mg tablet 2021-0 04-28 00:00: 00 Yes [id number] 1mg Take 1 tablet by mouth in the morning and 1 tablet at noon and 1 tablet in the evening. [facility] clonazePAM 1 mg tablet 2021-0 04-28 00:00: 00 Yes [id number] 1mg Take 1 tablet by mouth in the morning and 1 tablet at noon and 1 tablet in the evening. [facility] clonazePAM 1 mg tablet 2021-0 04-28 00:00: 00 Yes [id number] 1mg Take 1 tablet by mouth in the morning and 1 tablet at noon and 1 tablet in the evening. [facility] clonazePAM 1 mg tablet 2021-0 04-28 00:00: 00 Yes [id number] 1mg Take 1 tablet by mouth in the morning and 1 tablet at noon and 1 tablet in the evening. [facility] clonazePAM 1 mg tablet 2021-0 04-28 00:00: 00 Yes [id number] 1mg Take 1 tablet by mouth in the morning and 1 tablet at noon and 1 tablet in the evening. [facility] clonazePAM 1 mg tablet 2021-0 04-28 00:00: 00 Yes [id number] 1mg Take 1 tablet by mouth in the morning and 1 tablet at noon and 1 tablet in the evening. [facility] clonazePAM 1 mg tablet 2-0 04-28 00:00: 00 Yes [id number] 1mg Take 1 tablet by mouth in the morning and 1 tablet at noon and 1 tablet in the evening. [facility] clonazePAM 1 mg tablet 2-0 - 00:00: 00 Yes [id number] 1mg Take 1 tablet by mouth in the morning and 1 tablet at noon and 1 tablet in the evening. [facility] clonazePAM 1 mg tablet 2-0 - 00:00: 00 Yes [id number] 1mg Take 1 tablet by mouth in the morning and 1 tablet at noon and 1 tablet in the evening. [facility] clonazePAM 1 mg tablet 04-28 00:00: 00 Yes [id number] 1mg Take 1 tablet by mouth in the morning and 1 tablet at noon and 1 tablet in the evening. [facility] clonazePAM 1 mg tablet 04-28 00:00: 00 Yes [id number] 1mg Take 1 tablet by mouth in the morning and 1 tablet at noon and 1 tablet in the evening. [facility] clonazePAM 1 mg tablet 04-28 00:00: 00 Yes [id number] 1mg Take 1 tablet by mouth in the morning and 1 tablet at noon and 1 tablet in the evening. [facility] clonazePAM 1 mg tablet 04-28 00:00: 00 Yes [id number] 1mg Take 1 tablet by mouth in the morning and 1 tablet at noon and 1 tablet in the evening. [facility] clonazePAM 1 mg tablet 04-28 00:00: 00 06-23 00:00 :00 No [id number] 1mg Take 1 tablet by mouth in the morning and 1 tablet at noon and 1 tablet in the evening. [facility] clonazePAM 1 mg tablet 04-28 00:00: 00 06-23 00:00 :00 No [id number] 1mg Take 1 tablet by mouth in the morning and 1 tablet at noon and 1 tablet in the evening. [facility] HYDROcodone -acetaminop hen 7.5-325 mg per tablet 04-09 00:00: 00 Yes [id number] 1{tbl} Take 1 tablet by mouth every 6 (six) hours as needed for Pain. Indication s: chronic pain [facility] HYDROcodone -acetaminop hen 7.5-325 mg per tablet 04-09 00:00: 00 Yes [id number] 1{tbl} Take 1 tablet by mouth every 6 (six) hours as needed for Pain. Indication s: chronic pain [facility] HYDROcodone -acetaminop hen 7.5-325 mg per tablet 04-09 00:00: 00 Yes [id number] 1{tbl} Take 1 tablet by mouth every 6 (six) hours as needed for Pain. Ind[facility]: [facility] -acetaminop hen 7.5-325 mg per tablet 04-09 00:00: 00 Yes [id number] 1{tbl} Take 1 tablet by mouth every 6 (six) hours as needed for Pain. Indication s: chronic pain [facility] HYDROcodone -acetaminop hen 7.5-325 mg per tablet 04-09 00:00: 00 Yes [id number] 1{tbl} Take 1 tablet by mouth every 6 (six) hours as needed for Pain. Indication s: chronic pain [facility] HYDROcodone -acetaminop hen 7.5-325 mg per tablet 04-09 00:00: 00 05-07 00:00 :00 No [id number] 1{tbl} Take 1 tablet by mouth every 6 (six) hours as needed for Pain. Indication s: chronic pain [facility] VERAPAMIL 240 mg 24 hr capsule 0 03-31 00:00: 00 Yes [id number] 240mg TAKE 1 CAPSULE BY MOUTH DAILY [facility] VERAPAMIL 240 mg 24 hr capsule 2021-0 03-31 00:00: 00 Yes [id number] 240mg TAKE 1 CAPSULE BY MOUTH DAILY [facility] VERAPAMIL 240 mg 24 hr capsule 2021-0 03-31 00:00: 00 Yes [id number] 240mg TAKE 1 CAPSULE BY MOUTH DAILY [facility] VERAPAMIL 240 mg 24 hr capsule 2021-0 03-31 00:00: 00 Yes [id number] 240mg TAKE 1 CAPSULE BY MOUTH DAILY [facility] VERAPAMIL 240 mg 24 hr capsule 2021-0 03-31 00:00: 00 Yes [id number] 240mg TAKE 1 CAPSULE BY MOUTH DAILY [facility] VERAPAMIL 240 mg 24 hr capsule 2021-0 03-31 00:00: 00 Yes [id number] 240mg TAKE 1 CAPSULE BY MOUTH DAILY [facility] VERAPAMIL 240 mg 24 hr capsule 2-0 8 00:00: 00 Yes [id number] 240mg TAKE 1 CAPSULE BY MOUTH DAILY [facility] VERAPAMIL 240 mg 24 hr capsule 2021-0 03-31 00:00: 00 Yes [id number] 240mg TAKE 1 CAPSULE BY MOUTH DAILY [facility] VERAPAMIL 240 mg 24 hr capsule 2-0 03-31 00:00: 00 Yes [id number] 240mg TAKE 1 CAPSULE BY MOUTH DAILY [facility] VERAPAMIL 240 mg 24 hr capsule 2-0 03-31 00:00: 00 Yes [id number] 240mg TAKE 1 CAPSULE BY MOUTH DAILY [facility] VERAPAMIL 240 mg 24 hr capsule 2-0 03-31 00:00: 00 Yes [id number] 240mg TAKE 1 CAPSULE BY MOUTH DAILY [facility] VERAPAMIL 240 mg 24 hr capsule 2-0 03-31 00:00: 00 Yes [id number] 240mg TAKE 1 CAPSULE BY MOUTH DAILY [facility] VERAPAMIL 240 mg 24 hr capsule 2-0 03-31 00:00: 00 Yes [id number] 240mg TAKE 1 CAPSULE BY MOUTH DAILY [facility] VERAPAMIL 240 mg 24 hr capsule 2-0 03-31 00:00: 00 Yes [id number] 240mg TAKE 1 CAPSULE BY MOUTH DAILY [facility] VERAPAMIL 240 mg 24 hr capsule 2-0 03-31 00:00: 00 Yes [id number] 240mg TAKE 1 CAPSULE BY MOUTH DAILY [facility] VERAPAMIL 240 mg 24 hr capsule 2-0 03-31 00:00: 00 Yes [id number] 240mg TAKE 1 CAPSULE BY MOUTH DAILY [facility] VERAPAMIL 240 mg 24 hr capsule 2-0 03-31 00:00: 00 Yes [id number] 240mg TAKE 1 CAPSULE BY MOUTH DAILY [facility] VERAPAMIL 240 mg 24 hr capsule 2-0 03-31 00:00: 00 Yes [id number] 240mg TAKE 1 CAPSULE BY MOUTH DAILY [facility] VERAPAMIL 240 mg 24 hr capsule 2-0 03-31 00:00: 00 Yes [id number] 240mg TAKE 1 CAPSULE BY MOUTH DAILY [facility] VERAPAMIL 240 mg 24 hr capsule 2-0 03-31 00:00: 00 Yes [id number] 240mg TAKE 1 CAPSULE BY MOUTH DAILY [facility] VERAPAMIL 240 mg 24 hr capsule 2-0 03-31 00:00: 00 Yes [id number] 240mg TAKE 1 CAPSULE BY MOUTH DAILY [facility] VERAPAMIL 240 mg 24 hr capsule 2-0 8 00:00: 00 Yes [id number] 240mg TAKE 1 CAPSULE BY MOUTH DAILY [facility] VERAPAMIL 240 mg 24 hr capsule 2-0 8 00:00: 00 Yes [id number] 240mg TAKE 1 CAPSULE BY MOUTH DAILY [facility] VERAPAMIL 240 mg 24 hr capsule 2-0 8 00:00: 00 Yes [id number] 240mg TAKE 1 CAPSULE BY MOUTH DAILY [facility] VERAPAMIL 240 mg 24 hr capsule 2-0 8 00:00: 00 Yes [id number] 240mg TAKE 1 CAPSULE BY MOUTH DAILY [facility] VERAPAMIL 240 mg 24 hr capsule 2-0 03-31 00:00: 00 Yes [id number] 240mg TAKE 1 CAPSULE BY MOUTH DAILY [facility] VERAPAMIL 240 mg 24 hr capsule 2-0 8 00:00: 00 Yes [id number] 240mg TAKE 1 CAPSULE BY MOUTH DAILY [facility] VERAPAMIL 240 mg 24 hr capsule 2-0 03-31 00:00: 00 Yes [id number] 240mg TAKE 1 CAPSULE BY MOUTH DAILY [facility] VERAPAMIL 240 mg 24 hr capsule 2-0 03-31 00:00: 00 Yes [id number] 240mg TAKE 1 CAPSULE BY MOUTH DAILY [facility] VERAPAMIL 240 mg 24 hr capsule 2-0 03-31 00:00: 00 Yes [id number] 240mg TAKE 1 CAPSULE BY MOUTH DAILY [facility] VERAPAMIL 240 mg 24 hr capsule 2-0 03-31 00:00: 00 Yes [id number] 240mg TAKE 1 CAPSULE BY MOUTH DAILY [facility] VERAPAMIL 240 mg 24 hr capsule 2-0 03-31 00:00: 00 06-10 00:00 :00 No [id number] 240mg TAKE 1 CAPSULE BY MOUTH DAILY [facility] VERAPAMIL 240 mg 24 hr capsule 2-0 03-31 00:00: 00 06-10 00:00 :00 No [id number] 240mg TAKE 1 CAPSULE BY MOUTH DAILY [facility] VERAPAMIL 240 mg 24 hr capsule 2-0 03-31 00:00: 06-10 00:00 :00 No [id number] 240mg TAKE 1 CAPSULE BY MOUTH DAILY [facility] ALBUTEROL 90 mcg/actuati on inhaler 03-26 00:00: 00 Yes [id number] INHALE 2 PUFFS BY MOUTH EVERY 6 HOURS NEEDED FOR WHEEZING, SHORTNESS OF BREATH OR BRONCHOSPA [facility] ALBUTEROL 90 mcg/actuati on inhaler 03-26 00:00: 00 Yes [id number] INHALE 2 PUFFS BY MOUTH EVERY 6 HOURS NEEDED FOR WHEEZING, SHORTNESS OF BREATH OR BRONCHOSPA [facility] ALBUTEROL 90 mcg/actuati on inhaler 03-26 00:00: 00 Yes [id number] INHALE 2 PUFFS BY MOUTH EVERY 6 HOURS NEEDED FOR WHEEZING, SHORTNESS OF BREATH OR BRONCHOSPA [facility] ALBUTEROL 90 mcg/actuati on inhaler 03-26 00:00: 00 Yes [id number] INHALE 2 PUFFS BY MOUTH EVERY 6 HOURS NEEDED FOR WHEEZING, SHORTNESS OF BREATH OR BRONCHOSPA [facility] ALBUTEROL 90 mcg/actuati on inhaler 03-26 00:00: 00 Yes [id number] INHALE 2 PUFFS BY MOUTH EVERY 6 HOURS NEEDED FOR WHEEZING, SHORTNESS OF BREATH OR BRONCHOSPA [facility] ALBUTEROL 90 mcg/actuati on inhaler 03-26 00:00: 00 Yes [id number] INHALE 2 PUFFS BY MOUTH EVERY 6 HOURS NEEDED FOR WHEEZING, SHORTNESS OF BREATH OR BRONCHOSPA [facility] ALBUTEROL 90 mcg/actuati on inhaler 03-26 00:00: 00 Yes [id number] INHALE 2 PUFFS BY MOUTH EVERY 6 HOURS NEEDED FOR WHEEZING, SHORTNESS OF BREATH OR BRONCHOSPA [facility] ALBUTEROL 90 mcg/actuati on inhaler 03-26 00:00: 00 Yes [id number] INHALE 2 PUFFS BY MOUTH EVERY 6 HOURS NEEDED FOR WHEEZING, SHORTNESS OF BREATH OR BRONCHOSPA [facility] ALBUTEROL 90 mcg/actuati on inhaler 03-26 00:00: 00 Yes [id number] INHALE 2 PUFFS BY MOUTH EVERY 6 HOURS NEEDED FOR WHEEZING, SHORTNESS OF BREATH OR BRONCHOSPA [facility] ALBUTEROL 90 mcg/actuati on inhaler 03-26 00:00: 00 Yes [id number] INHALE 2 PUFFS BY MOUTH EVERY 6 HOURS NEEDED FOR WHEEZING, SHORTNESS OF BREATH OR BRONCHOSPA [facility] ALBUTEROL 90 mcg/actuati on inhaler 03-26 00:00: 00 Yes [id number] INHALE 2 PUFFS BY MOUTH EVERY 6 HOURS NEEDED FOR WHEEZING, SHORTNESS OF BREATH OR BRONCHOSPA [facility] ALBUTEROL 90 mcg/actuati on inhaler 03-26 00:00: 00 Yes [id number] INHALE 2 PUFFS BY MOUTH EVERY 6 HOURS NEEDED FOR WHEEZING, SHORTNESS OF BREATH OR BRONCHOSPA [facility] ALBUTEROL 90 mcg/actuati on inhaler 03-26 00:00: 00 Yes [id number] INHALE 2 PUFFS BY MOUTH EVERY 6 HOURS NEEDED FOR WHEEZING, SHORTNESS OF BREATH OR BRONCHOSPA [facility] ALBUTEROL 90 mcg/actuati on inhaler 03-26 00:00: 00 Yes [id number] INHALE 2 PUFFS BY MOUTH EVERY 6 HOURS NEEDED FOR WHEEZING, SHORTNESS OF BREATH OR BRONCHOSPA [facility] ALBUTEROL 90 mcg/actuati on inhaler 03-26 00:00: 00 Yes [id number] INHALE 2 PUFFS BY MOUTH EVERY 6 HOURS NEEDED FOR WHEEZING, SHORTNESS OF BREATH OR BRONCHOSPA [facility] ALBUTEROL 90 mcg/actuati on inhaler 03-26 00:00: 00 Yes [id number] INHALE 2 PUFFS BY MOUTH EVERY 6 HOURS NEEDED FOR WHEEZING, SHORTNESS OF BREATH OR BRONCHOSPA [facility] ALBUTEROL 90 mcg/actuati on inhaler 03-26 00:00: 00 Yes [id number] INHALE 2 PUFFS BY MOUTH EVERY 6 HOURS NEEDED FOR WHEEZING, SHORTNESS OF BREATH OR BRONCHOSPA [facility] ALBUTEROL 90 mcg/actuati on inhaler 03-26 00:00: 05-23 00:00 :00 No [id number] INHALE 2 PUFFS BY MOUTH EVERY 6 HOURS NEEDED FOR WHEEZING, SHORTNESS OF BREATH OR BRONCHOSPA [facility] ALBUTEROL 90 mcg/actuati on inhaler 03-26 00:00: 05-23 00:00 :00 No [id number] INHALE 2 PUFFS BY MOUTH EVERY 6 HOURS NEEDED FOR WHEEZING, SHORTNESS OF BREATH OR BRONCHOSPA [facility] HYDROcodone -acetaminop hen 7.5-325 mg per tablet 03-11 00:00: 00 Yes [id number] 1{tbl} Take 1 tablet by mouth every 6 (six) hours as needed for Pain. Indication s: chronic pain [facility] HYDROcodone -acetaminop hen 7.5-325 mg per tablet 03-11 00:00: 00 Yes [id number] 1{tbl} Take 1 tablet by mouth every 6 (six) hours as needed for Pain. Indication s: chronic pain [facility] HYDROcodone -acetaminop hen 7.5-325 mg per tablet 03-11 00:00: 00 Yes [id number] 1{tbl} Take 1 tablet by mouth every 6 (six) hours as needed for Pain. Indication s: chronic pain [facility] HYDROcodone -acetaminop hen 7.5-325 mg per tablet 03-11 00:00: 00 Yes [id number] 1{tbl} Take 1 tablet by mouth every 6 (six) hours as needed for Pain. Indication s: chronic pain [facility] HYDROcodone -acetaminop hen 7.5-325 mg per tablet 03-11 00:00: 00 04-09 00:00 :00 No [id number] 1{tbl} Take 1 tablet by mouth every 6 (six) hours as needed for Pain. Indication s: chronic pain [facility] QUINAPRIL 40 mg tablet 03-03 00:00: 00 Yes [id number] 40mg TAKE 1 TABLET BY MOUTH [facility]ING [facility] 03-03 00:00: 00 Yes [id number] TAKE 1 TABLET BY MOUTH EVERY 8 HOURS NEEDED [facility] QU[facility] mg tablet 03-03 00:00: 00 Yes [id number] 40mg TAKE 1 TABLET BY MOUTH EVERY MORNING [facility] TIZANIDINE 4 mg tablet 03-03 00:00: 00 Yes [id number] TAKE 1 TABLET BY MOUTH EVERY 8 HOURS NEEDED [facility] mg tablet 03-03 00:00: 00 Yes [id number] 40mg TAKE 1 TABLET BY MOUTH EVERY MORNING [facility] TIZ[facility] 4 mg tablet 03-03 00:00: 00 Yes [id number] TAKE 1 TABLET BY MOUTH EVERY 8 HOURS NEEDED [facility] QUINAPRIL [facility] mg tablet 03-03 00:00: 00 Yes [id number] 40mg TAKE 1 TABLET BY MOUTH EVERY MORNING [facility] TIZAN[facility] 4 mg tablet 03-03 00:00: 00 Yes [id number] TAKE 1 TABLET BY MOUTH EVERY 8 HOURS NEEDED [facility] QUINAPRIL 40 mg tablet 03-03 00:00: 00 Yes [id number] 40mg TAKE 1 TABLET BY MOUTH EVERY MORNING [facility] TIZAN[facility] 4 mg tablet 03-03 00:00: 00 Yes [id number] TAKE 1 TABLET BY MOUTH EVERY 8 HOURS NEEDED [facility] QUINAPRIL 40 mg tablet 03-03 00:00: 00 Yes [id number] 40mg TAKE 1 TABLET BY MOUTH EVERY MORNING [facility] TIZANIDINE 4 mg tablet 03-03 00:00: 00 Yes [id number] TAKE 1 TABLET BY MOUTH EVERY 8 HOURS NEEDED [facility] QUINAPRIL 40 mg tablet 03-03 00:00: 00 Yes [id number] 40mg TAKE 1 TABLET BY MOUTH EVERY MORNING [facility] TIZANIDINE 4 mg tablet 03-03 00:00: 00 Yes [id number] TAKE 1 TABLET BY MOUTH EVERY 8 HOURS NEEDED [facility] QUINAPRIL 40 mg tablet 03-03 00:00: 00 Yes [id number] 40mg TAKE 1 TABLET BY MOUTH EVERY MORNING [facility] TIZANIDINE 4 mg tablet 03-03 00:00: 00 Yes [id number] TAKE 1 TABLET BY MOUTH EVERY 8 HOURS NEEDED [facility] QUINAPRIL 40 mg tablet 03-03 00:00: 00 Yes [id number] 40mg TAKE 1 TABLET BY MOUTH EVERY MORNING [facility] TIZANIDINE 4 mg tablet 03-03 00:00: 00 Yes [id number] TAKE 1 TABLET BY MOUTH EVERY 8 HOURS NEEDED [facility] QU[facility]RIL [facility] mg tablet 03-03 00:00: 00 Yes [id number] 40mg TAKE 1 TABLET BY MOUTH EVERY MORNING [facility] TIZANIDINE 4 mg tablet 03-03 00:00: 00 Yes [id number] TAKE 1 TABLET BY MOUTH EVERY 8 HOURS NEEDED [facility] QUINAPRIL 40 mg tablet 03-03 00:00: 00 Yes [id number] 40mg TAKE 1 TABLET BY MOUTH EVERY MORNING [facility] TIZANIDINE 4 mg tablet 03-03 00:00: 00 Yes [id number] TAKE 1 TABLET BY MOUTH EVERY 8 HOURS NEEDED [facility] [facility] QUINAPRIL 40 mg tablet 03-03 00:00: 00 Yes [id number] 40mg TAKE 1 TABLET BY MOUTH EVERY MORNING [facility] TIZANIDINE 4 mg tablet 03-03 00:00: 00 Yes [id number] TAKE 1 TABLET BY MOUTH EVERY 8 HOURS NEEDED [facility] QUINAPRIL 40 mg tablet 03-03 00:00: 00 Yes [id number] 40mg TAKE 1 TABLET BY MOUTH EVERY MORNING [facility] TIZANIDINE 4 mg tablet 03-03 00:00: 00 Yes [id number] TAKE 1 TABLET BY MOUTH EVERY 8 HOURS NEEDED [facility] QUINAPRIL 40 mg tablet 03-03 00:00: 00 Yes [id number] 40mg TAKE 1 TABLET BY MOUTH EVERY MORNING [facility] TIZANIDINE 4 mg tablet 0 03-03 00:00: 00 Yes [id number] TAKE 1 TABLE[facility] 03-03 00:00: 00 Yes [id number] 40mg TAKE 1 TABLET BY MOUTH EVERY MORNING [facility] TIZANIDINE 4 mg tablet 03-03 00:00: 00 Yes [id number] TAKE 1 TABLET [facility] MOUTH EVERY [facility]RS [facility] 03-03 00:00: 00 Yes [id number] 40mg TAKE 1 TABLET BY MOUTH [facility] 03-03 00:00: 00 Yes [id number] TAKE 1 TABLET BY MOUTH EVERY 8 HOURS NEEDED [facility] QU[facility]IL [facility] mg tablet 03-03 00:00: 00 Yes [id number] 40mg TAKE 1 TABLET BY MOUTH EVERY MORNING [facility] mg tablet 0 03-03 00:00: 00 Yes [id number] TAKE 1 TABLET BY MOUTH EVERY 8 HOURS NEEDED [facility] QU[facility]IL [facility] mg tablet 03-03 00:00: 00 Yes [id number] 40mg TAKE 1 TABLET BY MOUTH [facility] MORN[facility] tablet 0 03-03 00:00: 00 Yes [id number] TAKE 1 TABLET BY MOUTH EVERY 8 HOURS NEEDED [facility] QU[facility]IL [facility] mg tablet 0 03-03 00:00: 00 Yes [id number] 40mg TAKE 1 TABLET BY MOUTH EVERY MORNING [facility] TIZANIDINE 4 mg tablet 0 03-03 00:00: 00 Yes [id number] TAKE 1 TABLET BY MOUTH EVERY 8 HOURS [facility] 2021-0 03-03 00:00: 00 Yes [id number] TAKE 1 TABLET BY MOUTH EVERY 8 HOURS [facility]ED [facility] mg tablet 03-03 00:00: 00 Yes [id number] TAKE 1 TABLET BY MOUTH EVERY 8 HOURS NEEDED [facility] TIZANIDINE 4 mg tablet 03-03 00:00: 00 Yes [id number] TAKE 1 TABLET BY MOUTH EVERY 8 HOURS NEEDED [facility] TIZANIDINE 4 mg tablet 03-03 00:00: 00 Yes [id number] TAKE 1 TABLET BY MOUTH EVERY 8 HOURS NEEDED [facility] TIZANIDINE 4 mg tablet 03-03 00:00: 00 05-26 00:00 :00 No [id number] TAKE 1 TABLET BY MOUTH EVERY 8 HOURS NEEDED [facility] QUINAPRIL 40 mg tablet 03-03 00:00: 00 05-23 00:00 :00 No [id number] 40mg TAKE 1 TABLET BY MOUTH EVERY MORNING [facility] glipiZIDE XL 5 mg 24 hr tablet 02-27 00:00: 00 Yes [id number] 5mg TAKE 1 TABLET BY MOUTH DAILY WITH BREAKFAST [facility] glipiZIDE XL 5 mg 24 hr tablet 0 02-27 00:00: 00 Yes [id number] 5mg TAKE 1 TABLET BY MOUTH DAILY WITH BREAKFAST [facility] glipiZIDE XL 5 mg 24 hr tablet 02-27 00:00: 00 Yes [id number] 5mg TAKE 1 TABLET BY MOUTH DAILY WITH BREAKFAST [facility] glipiZIDE XL 5 mg 24 hr tablet 0 02-27 00:00: 00 Yes [id number] 5mg TAKE 1 TABLET BY MOUTH DAILY WITH BREAKFAST [facility] glipiZIDE XL 5 mg 24 hr tablet 0 02-27 00:00: 00 Yes [id number] 5mg TAKE 1 TABLET BY MOUTH DAILY WITH BREAKFAST [facility] glipiZIDE XL 5 mg 24 hr tablet 0 02-27 00:00: 00 Yes [id number] 5mg TAKE 1 TABLET BY MOUTH DAILY WITH BREAKFAST [facility] glipiZIDE XL 5 mg 24 hr tablet 0 02-27 00:00: 00 Yes [id number] 5mg TAKE 1 TABLET BY MOUTH DAILY WITH BREAKFAST [facility] glipiZIDE XL 5 mg 24 hr tablet 2021-0 02-27 00:00: 00 Yes [id number] 5mg TAKE 1 TABLET BY MOUTH DAILY WITH BREAKFAST [facility] glipiZIDE XL 5 mg 24 hr tablet 2021-0 02-27 00:00: 00 Yes [id number] 5mg TAKE 1 TABLET BY MOUTH DAILY WITH BREAKFAST [facility] glipiZIDE XL 5 mg 24 hr tablet 2021-0 02-27 00:00: 00 Yes [id number] 5mg TAKE 1 TABLET BY MOUTH DAILY WITH BREAKFAST [facility] glipiZIDE XL 5 mg 24 hr tablet 2021-0 02-27 00:00: 00 Yes [id number] 5mg TAKE 1 TABLET BY MOUTH DAILY WITH BREAKFAST [facility] glipiZIDE XL 5 mg 24 hr tablet 2021-0 02-27 00:00: 00 Yes [id number] 5mg TAKE 1 TABLET BY MOUTH DAILY WITH BREAKFAST [facility] glipiZIDE XL 5 mg 24 hr tablet 2021-0 02-27 00:00: 00 Yes [id number] 5mg TAKE 1 TABLET BY MOUTH DAILY WITH BREAKFAST [facility] glipiZIDE XL 5 mg 24 hr tablet 2021-0 02-27 00:00: 00 Yes [id number] 5mg TAKE 1 TABLET BY MOUTH DAILY WITH BREAKFAST [facility] glipiZIDE XL 5 mg 24 hr tablet 2021-0 02-27 00:00: 00 Yes [id number] 5mg TAKE 1 TABLET BY MOUTH DAILY WITH BREAKFAST [facility] glipiZIDE XL 5 mg 24 hr tablet 2021-0 02-27 00:00: 00 Yes [id number] 5mg TAKE 1 TABLET BY MOUTH DAILY WITH BREAKFAST [facility] glipiZIDE XL 5 mg 24 hr tablet 2021-0 02-27 00:00: 00 Yes [id number] 5mg TAKE 1 TABLET BY MOUTH DAILY WITH BREAKFAST [facility] glipiZIDE XL 5 mg 24 hr tablet 2-0 02-27 00:00: 00 Yes [id number] 5mg TAKE 1 TABLET BY MOUTH DAILY WITH BREAKFAST [facility] glipiZIDE XL 5 mg 24 hr tablet 02-27 00:00: 00 Yes [id number] 5mg TAKE 1 TABLET BY MOUTH DAILY WITH BREAKFAST [facility] glipiZIDE XL 5 mg 24 hr tablet 02-27 00:00: 00 Yes [id number] 5mg TAKE 1 TABLET BY MOUTH DAILY WITH BREAKFAST [facility] glipiZIDE XL 5 mg 24 hr tablet 02-27 00:00: 00 05-23 00:00 :00 No [id number] 5mg TAKE 1 TABLET BY MOUTH DAILY WITH BREAKFAST [facility] glipiZIDE XL 5 mg 24 hr tablet 02-27 00:00: 00 05-23 00:00 :00 No [id number] 5mg TAKE 1 TABLET BY MOUTH DAILY WITH BREAKFAST [facility] glipiZIDE XL 5 mg 24 hr tablet 02-27 00:00: 00 05-23 00:00 :00 No [id number] 5mg TAKE 1 TABLET BY MOUTH DAILY WITH BREAKFAST [facility] glipiZIDE XL 5 mg 24 hr tablet 02-27 00:00: 00 05-23 00:00 :00 No [id number] 5mg TAKE 1 TABLET BY MOUTH DAILY WITH BREAKFAST [facility] clonazePAM 1 mg tablet 02-24 00:00: 00 Yes [id number] 1mg Take 1 tablet by mouth in the morning and 1 tablet at noon and 1 tablet in the evening. [facility] clonazePAM 1 mg tablet 02-24 00:00: 00 Yes [id number] 1mg Take 1 tablet by mouth in the morning and 1 tablet at noon and 1 tablet in the evening. [facility] clonazePAM 1 mg tablet 02-24 00:00: 00 Yes [id number] 1mg Take 1 tablet by mouth in the morning and 1 tablet at noon and 1 tablet in the evening. [facility] clonazePAM 1 mg tablet 02-24 00:00: 00 Yes [id number] 1mg Take 1 tablet by mouth in the morning and 1 tablet at noon and 1 tablet in the evening. [facility] clonazePAM 1 mg tablet 0 -25 00:00: 00 Yes [id number] 1mg Take 1 tablet by mouth in the morning and 1 tablet at noon and 1 tablet in the evening. [facility] clonazePAM 1 mg tablet 2021-0 7-25 00:00: 00 Yes [id number] 1mg Take 1 tablet by mouth in the morning and 1 tablet at noon and 1 tablet in the evening. [facility] clonazePAM 1 mg tablet 0 02-24 00:00: 00 04-28 00:00 :00 No [id number] 1mg Take 1 tablet by mouth in the morning and 1 tablet at noon and 1 tablet in the evening. [facility] nirmatrelvi r-ritonavir (PAXLOVID, EUA,) 150 mg x 2- 100 mg tablet 2021-0 -13 00:00: 00 Yes [id number] 3{tbl} Take 3 tablets by mouth in the morning and 3 tablets in the evening. [facility] nirmatrelvi r-ritonavir (PAXLOVID, EUA,) 150 mg x 2- 100 mg tablet 2021-0 -13 00:00: 00 Yes [id number] 3{tbl} Take 3 tablets by mouth in the morning and 3 tablets in the evening. [facility] nirmatrelvi r-ritonavir (PAXLOVID, EUA,) 150 mg x 2- 100 mg tablet 2021-0 -13 00:00: 00 Yes [id number] 3{tbl} Take 3 tablets by mouth in the morning and 3 tablets in the evening. [facility] nirmatrelvi r-ritonavir (PAXLOVID, EUA,) 150 mg x 2- 100 mg tablet 2021-0 7-13 00:00: 00 Yes [id number] 3{tbl} Take 3 tablets by mouth in the morning and 3 tablets in the evening. [facility] nirmatrelvi r-ritonavir (PAXLOVID, EUA,) 150 mg x 2- 100 mg tablet 2022-0 7-13 00:00: 00 Yes [id number] 3{tbl} Take 3 tablets by mouth in the morning and 3 tablets in the evening. [facility] nirmatrelvi r-ritonavir (PAXLOVID, EUA,) 150 mg x 2- 100 mg tablet 2022-0 7-13 00:00: 00 Yes [id number] 3{tbl} Take 3 tablets by mouth in the morning and 3 tablets in the evening. [facility] nirmatrelvi r-ritonavir (PAXLOVID, EUA,) 150 mg x 2- 100 mg tablet 2-0 7-13 00:00: 00 Yes [id number] 3{tbl} Take 3 tablets by mouth in the morning and 3 tablets in the evening. [facility] nirmatrelvi r-ritonavir (PAXLOVID, EUA,) 150 mg x 2- 100 mg tablet 2-0 7-13 00:00: 00 Yes [id number] 3{tbl} Take 3 tablets by mouth in the morning and 3 tablets in the evening. [facility] nirmatrelvi r-ritonavir (PAXLOVID, EUA,) 150 mg x 2- 100 mg tablet 2-0 7-13 00:00: 00 Yes [id number] 3{tbl} Take 3 tablets by mouth in the morning and 3 tablets in the evening. [facility] nirmatrelvi r-ritonavir (PAXLOVID, EUA,) 150 mg x 2- 100 mg tablet 2-0 7-13 00:00: 00 Yes [id number] 3{tbl} Take 3 tablets by mouth in the morning and 3 tablets in the evening. [facility] nirmatrelvi r-ritonavir (PAXLOVID, EUA,) 150 mg x 2- 100 mg tablet 2-0 7-13 00:00: 00 Yes [id number] 3{tbl} Take 3 tablets by mouth in the morning and 3 tablets in the evening. [facility] nirmatrelvi r-ritonavir (PAXLOVID, EUA,) 150 mg x 2- 100 mg tablet 2022-0 7-13 00:00: 00 Yes [id number] 3{tbl} Take 3 tablets by mouth in the morning and 3 tablets in the evening. [facility] nirmatrelvi r-ritonavir (PAXLOVID, EUA,) 150 mg x 2- 100 mg tablet 2022-0 7-13 00:00: 00 Yes [id number] 3{tbl} Take 3 tablets by mouth in the morning and 3 tablets in the evening. [facility] nirmatrelvi r-ritonavir (PAXLOVID, EUA,) 150 mg x 2- 100 mg tablet 2022-0 7-13 00:00: 00 Yes [id number] 3{tbl} Take 3 tablets by mouth in the morning and 3 tablets in the evening. [facility] nirmatrelvi r-ritonavir (PAXLOVID, EUA,) 150 mg x 2- 100 mg tablet 2022-0 7-13 00:00: 00 Yes [id number] 3{tbl} Take 3 tablets by mouth in the morning and 3 tablets in the evening. [facility] nirmatrelvi r-ritonavir (PAXLOVID, EUA,) 150 mg x 2- 100 mg tablet 2022-0 7-13 00:00: 00 Yes [id number] 3{tbl} Take 3 tablets by mouth in the morning and 3 tablets in the evening. [facility] nirmatrelvi r-ritonavir (PAXLOVID, EUA,) 150 mg x 2- 100 mg tablet 2022-0 7-13 00:00: 00 Yes [id number] 3{tbl} Take 3 tablets by mouth in the morning and 3 tablets in the evening. [facility] nirmatrelvi r-ritonavir (PAXLOVID, EUA,) 150 mg x 2- 100 mg tablet 2022-0 7-13 00:00: 00 Yes [id number] 3{tbl} Take 3 tablets by mouth in the morning and 3 tablets in the evening. [facility] nirmatrelvi r-ritonavir (PAXLOVID, EUA,) 150 mg x 2- 100 mg tablet 2022-0 7-13 00:00: 00 Yes [id number] 3{tbl} Take 3 tablets by mouth in the morning and 3 tablets in the evening. [facility] nirmatrelvi r-ritonavir (PAXLOVID, EUA,) 150 mg x 2- 100 mg tablet 2022-0 7-13 00:00: 00 Yes [id number] 3{tbl} Take 3 tablets by mouth in the morning and 3 tablets in the evening. [facility] nirmatrelvi r-ritonavir (PAXLOVID, EUA,) 150 mg x 2- 100 mg tablet 2-0 7-13 00:00: 00 05-23 00:00 :00 No [id number] 3{tbl} Take 3 tablets by mouth in the morning and 3 tablets in the evening. [facility] nirmatrelvi r-ritonavir (PAXLOVID, EUA,) 150 mg x 2- 100 mg tablet 2-0 7-13 00:00: 00 05-23 00:00 :00 No [id number] 3{tbl} Take 3 tablets by mouth in the morning and 3 tablets in the evening. [facility] nirmatrelvi r-ritonavir (PAXLOVID, EUA,) 150 mg x 2- 100 mg tablet 2022-0 7-13 00:00: 00 05-23 00:00 :00 No [id number] 3{tbl} Take 3 tablets by mouth in the morning and 3 tablets in the evening. [facility] meloxicam 7.5 mg tablet 2-0 7-12 00:00: 00 Yes 7.5mg Take 1 tablet by mouth in the morning. [facility] meloxicam 7.5 mg tablet 2022-0 7-12 00:00: 00 Yes 7.5mg Take 1 tablet by mouth in the morning. [facility] meloxicam 7.5 mg tablet 2022-0 7-12 00:00: 00 Yes 7.5mg Take 1 tablet by mouth in the morning. [facility] meloxicam 7.5 mg tablet 2022-0 7-12 00:00: 00 Yes 7.5mg Take 1 tablet by mouth in the morning. [facility] meloxicam 7.5 mg tablet 2022-0 7-12 00:00: 00 Yes 7.5mg Take 1 tablet by mouth in the morning. [facility] meloxicam 7.5 mg tablet 2022-0 7-12 00:00: 00 Yes 7.5mg Take 1 tablet by mouth in the morning. [facility] meloxicam 7.5 mg tablet 2022-0 7-12 00:00: 00 Yes 7.5mg Take 1 tablet by mouth in the morning. [facility] 2022-0 7-12 00:00: 00 Yes 7.5mg Take 1 tablet by mouth in the morning. [facility] meloxicam 7.5 mg tablet 2022-0 7-12 00:00: 00 Yes 7.5mg Take 1 tablet by mouth in the morning. [facility] meloxicam 7.5 mg tablet 2022-0 7-12 00:00: 00 Yes 7.5mg Take 1 tablet by mouth in the morning. [facility] meloxicam 7.5 mg tablet 2022-0 7-12 00:00: 00 Yes 7.5mg Take 1 tablet by mouth in the morning. [facility] meloxicam 7.5 mg tablet 2022-0 7-12 00:00: 00 Yes 7.5mg Take 1 tablet by mouth in the morning. [facility]5 mg tablet 2022-0 7-12 00:00: 00 Yes 7.5mg Take 1 tablet by mouth in the morning. [facility]am 7.5 mg tablet 2022-0 7-12 00:00: 00 Yes 7.5mg Take 1 tablet by mouth in the morning. [facility] meloxicam 7.5 mg tablet 2022-0 7-12 00:00: 00 Yes 7.5mg Take 1 tablet by mouth in the morning. [facility]am 7[facility]5 mg tablet 2022-0 7-12 00:00: 00 Yes 7.5mg Take 1 tablet by mouth in the morning. [facility] mel[facility]am 7.5 mg tablet 2-0 7-12 00:00: 00 Yes 7.5mg Take 1 tablet by mouth in the morning. [facility] meloxicam 7.5 mg tablet 2-0 7-12 00:00: 00 Yes 7.5mg Take 1 tablet by mouth in the morning. [facility] meloxicam 7.5 mg tablet 2-0 7-12 00:00: 00 Yes 7.5mg Take 1 tablet by mouth in the morning. [facility] meloxicam 7.5 mg tablet 2-0 7-12 00:00: 00 Yes 7.5mg Take 1 tablet by mouth in the morning. [facility] meloxicam 7.5 mg tablet 2-0 7-12 00:00: 00 Yes 7.5mg Take 1 tablet by mouth in the morning. [facility] meloxicam 7.5 mg tablet 2-0 712 00:00: 00 Yes 7.5mg Take 1 tablet by mouth in the morning. [facility] meloxicam 7.5 mg tablet 2-0 712 00:00: 00 Yes 7.5mg Take 1 tablet by mouth in the morning. [facility] meloxicam 7.5 mg tablet 2-0 7-12 00:00: 00 Yes 7.5mg Take 1 tablet by mouth in the morning. [facility] meloxicam 7.5 mg tablet 2-0 7-12 00:00: 00 Yes 7.5mg Take 1 tablet by mouth in the morning. [facility] meloxicam 7.5 mg tablet 2-0 7-12 00:00: 00 Yes 7.5mg Take 1 tablet by mouth in the morning. [facility] meloxicam 7.5 mg tablet 2-0 7-12 00:00: 00 Yes 7.5mg Take 1 tablet by mouth in the morning. [facility] meloxicam 7.5 mg tablet 2-0 7-12 00:00: 00 Yes 7.5mg Take 1 tablet by mouth in the morning. [facility] 7[facility]5 mg tablet 2022-0 7-12 00:00: 00 Yes 7.5mg Take 1 tablet by mouth in the morning. [facility]am 7.5 mg tablet 2022-0 7-12 00:00: 00 Yes 7.5mg Take 1 tablet by mouth in the morning. [facility]am 7.5 mg tablet 2022-0 7-12 00:00: 00 Yes 7.5mg Take 1 tablet by mouth in the morning. [facility] meloxicam 7.5 mg tablet 2022-0 7-12 00:00: 00 Yes 7.5mg Take 1 tablet by mouth in the morning. [facility] meloxicam 7.5 mg tablet 2022-0 7-12 00:00: 00 Yes 7.5mg Take 1 tablet by mouth in the morning. [facility] meloxicam 7.5 mg tablet 2-0 7-12 00:00: 00 Yes 7.5mg Take 1 tablet by mouth in the morning. [facility] meloxicam 7.5 mg tablet 2-0 7-12 00:00: 00 Yes 7.5mg Take 1 tablet by mouth in the morning. [facility] meloxicam 7.5 mg tablet 2022-0 7-12 00:00: 00 Yes 7.5mg Take 1 tablet by mouth in the morning. [facility] meloxicam 7.5 mg tablet 2022-0 7-12 00:00: 00 Yes 7.5mg Take 1 tablet by mouth in the morning. [facility] meloxicam 7.5 mg tablet 2022-0 7-12 00:00: 00 Yes 7.5mg Take 1 tablet by mouth in the morning. [facility] meloxicam 7.5 mg tablet 2022-0 7-12 00:00: 00 Yes 7.5mg Take 1 tablet by mouth in the morning. [facility] meloxicam 7.5 mg tablet 2022-0 7-12 00:00: 00 Yes 7.5mg Take 1 tablet by mouth in the morning. [facility]am 7.5 mg tablet 2022-0 7-12 00:00: 00 Yes 7.5mg Take 1 tablet by mouth in the morning. [facility] mel[facility]am 7.5 mg tablet 2-0 7-12 00:00: 00 Yes 7.5mg Take 1 tablet by mouth in the morning. [facility] meloxicam 7.5 mg tablet 2-0 7-12 00:00: 00 Yes 7.5mg Take 1 tablet by mouth in the morning. [facility]am 7.5 mg tablet 2-0 7-12 00:00: 00 Yes 7.5mg Take 1 tablet by mouth in the morning. [facility] meloxicam 7.5 mg tablet 2-0 7-12 00:00: 00 Yes 7.5mg Take 1 tablet by mouth in the morning. [facility] meloxicam 7.5 mg tablet 2-0 7-12 00:00: 00 Yes 7.5mg Take 1 tablet by mouth in the morning. [facility] meloxicam 7.5 mg tablet 2-0 7-12 00:00: 00 Yes 7.5mg Take 1 tablet by mouth in the morning. [facility] meloxicam 7.5 mg tablet 2-0 7-12 00:00: 00 Yes 7.5mg Take 1 tablet by mouth in the morning. [facility] meloxicam 7.5 mg tablet 2-0 7-12 00:00: 00 Yes 7.5mg Take 1 tablet by mouth in the morning. [facility] meloxicam 7.5 mg tablet 2-0 7-12 00:00: 00 Yes 7.5mg Take 1 tablet by mouth in the morning. [facility] meloxicam 7.5 mg tablet 2-0 7-12 00:00: 00 Yes 7.5mg Take 1 tablet by mouth in the morning. [facility] meloxicam 7.5 mg tablet 2022-0 7-12 00:00: 00 Yes 7.5mg Take 1 tablet by mouth in the morning. [facility] 2-0 7-12 00:00: 00 Yes 7.5mg Take 1 tablet by mouth in the morning. [facility] meloxicam 7.5 mg tablet 2-0 7-12 00:00: 00 Yes 7.5mg Take 1 tablet by mouth in the morning. [facility] meloxicam 7.5 mg tablet 2-0 7-12 00:00: 00 Yes 7.5mg Take 1 tablet by mouth in the morning. [facility]am 7.5 mg tablet 2-0 7-12 00:00: 00 Yes 7.5mg Take 1 tablet by mouth in the morning. [facility] meloxicam 7.5 mg tablet 2-0 7-12 00:00: 00 Yes 7.5mg Take 1 tablet by mouth in the morning. [facility] meloxicam 7.5 mg tablet 2-0 7-12 00:00: 00 Yes 7.5mg Take 1 tablet by mouth in the morning. [facility] meloxicam 7.5 mg tablet 2-0 7-12 00:00: 00 Yes 7.5mg Take 1 tablet by mouth in the morning. [facility] meloxicam 7.5 mg tablet 2-0 7-12 00:00: 00 Yes 7.5mg Take 1 tablet by mouth in the morning. [facility] meloxicam 7.5 mg tablet 2-0 7-12 00:00: 00 Yes 7.5mg Take 1 tablet by mouth in the morning. [facility] meloxicam 7.5 mg tablet 2-0 7-12 00:00: 00 Yes 7.5mg Take 1 tablet by mouth in the morning. [facility] meloxicam 7.5 mg tablet 2-0 7-12 00:00: 00 Yes 7.5mg Take 1 tablet by mouth in the morning. [facility] meloxicam 7.5 mg tablet 2022-0 7-12 00:00: 00 Yes 7.5mg Take 1 tablet by mouth in the morning. [facility] meloxicam 7.5 mg tablet 2022-0 7-12 00:00: 00 Yes 7.5mg Take 1 tablet by mouth in the morning. [facility] meloxicam 7.5 mg tablet 2022-0 7-12 00:00: 00 Yes 7.5mg Take 1 tablet by mouth in the morning. [facility] meloxicam 7.5 mg tablet 2022-0 7-12 00:00: 00 Yes 7.5mg Take 1 tablet by mouth in the morning. [facility] meloxicam 7.5 mg tablet 2022-0 7-12 00:00: 00 Yes 7.5mg Take 1 tablet by mouth in the morning. [facility]5 [facility] 2022-0 7-12 00:00: 00 Yes 7.5mg Take 1 tablet by mouth in the morning. [facility] mel[facility]am 7.5 mg tablet 2022-0 7-12 00:00: 00 Yes 7.5mg Take 1 tablet by mouth in the morning. [facility] mel[facility]am 7.5 mg tablet 2022-0 7-12 00:00: 00 Yes 7.5mg Take 1 tablet by mouth in the morning. [facility] meloxicam 7.5 mg tablet 2022-0 7-12 00:00: 00 Yes 7.5mg Take 1 tablet by mouth in the morning. [facility] mel[facility]am 7.5 mg tablet 2022-0 7-12 00:00: 00 Yes 7.5mg Take 1 tablet by mouth in the morning. [facility] meloxicam 7.5 mg tablet 2022-0 7-12 00:00: 00 Yes 7.5mg Take 1 tablet by mouth in the morning. [facility] meloxicam 7.5 mg tablet 2022-0 7-12 00:00: 00 Yes 7.5mg Take 1 tablet by mouth in the morning. [facility]am 7.5 mg tablet 2022-0 7-12 00:00: 00 Yes 7.5mg Take 1 tablet by mouth in the morning. [facility] meloxicam 7.5 mg tablet 2022-0 7-12 00:00: 00 Yes 7.5mg Take 1 tablet by mouth in the morning. [facility]5 mg tablet 2-0 7-12 00:00: 00 Yes 7.5mg Take 1 tablet by mouth in the morning. [facility] meloxicam 7.5 mg tablet 2-0 7-12 00:00: 00 Yes 7.5mg Take 1 tablet by mouth in the morning. [facility]0 7-12 00:00: 00 Yes 7.5mg Take 1 tablet by mouth in the morning. [facility] meloxicam 7.5 mg tablet 2-0 7-12 00:00: 00 Yes 7.5mg Take 1 tablet by mouth in the morning. [facility] meloxicam 7.5 mg tablet 2-0 7-12 00:00: 00 Yes 7.5mg Take 1 tablet by mouth in the morning. [facility] meloxicam 7.5 mg tablet 2-0 7-12 00:00: 00 Yes 7.5mg Take 1 tablet by mouth in the morning. [facility] meloxicam 7.5 mg tablet 2-0 7-12 00:00: 00 Yes 7.5mg Take 1 tablet by mouth in the morning. [facility] meloxicam 7.5 mg tablet 2-0 7-12 00:00: 00 Yes 7.5mg Take 1 tablet by mouth in the morning. [facility] meloxicam 7.5 mg tablet 2-0 7-12 00:00: 00 Yes 7.5mg Take 1 tablet by mouth in the morning. [facility] meloxicam 7.5 mg tablet 2-0 7-12 00:00: 00 Yes 7.5mg Take 1 tablet by mouth in the morning. [facility] meloxicam 7.5 mg tablet 2022-0 7-12 00:00: 00 Yes 7.5mg Take 1 tablet by mouth in the morning. [facility] meloxicam 7.5 mg tablet 2-0 7-12 00:00: 00 Yes 7.5mg Take 1 tablet by mouth in the morning. [facility] tablet 2022-0 7-12 00:00: 00 Yes 7.5mg Take 1 tablet by mouth in the morning. [facility]5 mg tablet 2022-0 7-12 00:00: 00 Yes 7.5mg Take 1 tablet by mouth in the morning. [facility]am 7.5 mg tablet 2022-0 7-12 00:00: 00 Yes 7.5mg Take 1 tablet by mouth in the morning. [facility] meloxicam 7.5 mg tablet 2022-0 7-12 00:00: 00 Yes 7.5mg Take 1 tablet by mouth in the morning. [facility] meloxicam 7.5 mg tablet 2022-0 7-12 00:00: 00 Yes 7.5mg Take 1 tablet by mouth in the morning. [facility] meloxicam 7.5 mg tablet 2-0 7-12 00:00: 00 Yes 7.5mg Take 1 tablet by mouth in the morning. [facility] meloxicam 7.5 mg tablet 2-0 7-12 00:00: 00 Yes 7.5mg Take 1 tablet by mouth in the morning. [facility] meloxicam 7.5 mg tablet 2022-0 7-12 00:00: 00 Yes 7.5mg Take 1 tablet by mouth in the morning. [facility] meloxicam 7.5 mg tablet 2022-0 7-12 00:00: 00 Yes 7.5mg Take 1 tablet by mouth in the morning. [facility] meloxicam 7.5 mg tablet 2022-0 7-12 00:00: 00 Yes 7.5mg Take 1 tablet by mouth in the morning. [facility] meloxicam 7.5 mg tablet 2022-0 7-12 00:00: 00 Yes 7.5mg Take 1 tablet by mouth in the morning. [facility] meloxicam 7.5 mg tablet 2022-0 7-12 00:00: 00 Yes 7.5mg Take 1 tablet by mouth in the morning. [facility]5 mg tablet 2022-0 7-12 00:00: 00 Yes 7.5mg Take 1 tablet by mouth in the morning. [facility] meloxicam 7.5 mg tablet 2022-0 7-12 00:00: 00 Yes 7.5mg Take 1 tablet by mouth in the morning. [facility]5 mg tablet 2022-0 7-12 00:00: 00 Yes 7.5mg Take 1 tablet by mouth in the morning. [facility]am 7.5 mg tablet 2022-0 7-12 00:00: 00 Yes 7.5mg Take 1 tablet by mouth in the morning. [facility] meloxicam 7.5 mg tablet 2-0 7-12 00:00: 00 Yes 7.5mg Take 1 tablet by mouth in the morning. [facility] meloxicam 7.5 mg tablet 2022-0 7-12 00:00: 00 Yes 7.5mg Take 1 tablet by mouth in the morning. [facility] meloxicam 7.5 mg tablet 2-0 7-12 00:00: 00 Yes 7.5mg Take 1 tablet by mouth in the morning. [facility] meloxicam 7.5 mg tablet 2022-0 7-12 00:00: 00 Yes 7.5mg Take 1 tablet by mouth in the morning. [facility] meloxicam 7.5 mg tablet 2022-0 7-12 00:00: 00 Yes 7.5mg Take 1 tablet by mouth in the morning. [facility] meloxicam 7.5 mg tablet 2022-0 7-12 00:00: 00 Yes 7.5mg Take 1 tablet by mouth in the morning. [facility] meloxicam 7.5 mg tablet 2022-0 7-12 00:00: 00 Yes 7.5mg Take 1 tablet by mouth in the morning. [facility] meloxicam 7.5 mg tablet 2022-0 7-12 00:00: 00 Yes 7.5mg Take 1 tablet by mouth in the morning[facility] 2-0 7-12 00:00: 00 Yes 7.5mg Take 1 tablet by mouth in the morning. [facility]am 7.5 mg tablet 2-0 7-12 00:00: 00 Yes 7.5mg Take 1 tablet by mouth in the morning. [facility] meloxicam 7.5 mg tablet 2-0 7-12 00:00: 00 Yes 7.5mg Take 1 tablet by mouth in the morning. [facility] meloxicam 7.5 mg tablet 2-0 7-12 00:00: 00 Yes 7.5mg Take 1 tablet by mouth in the morning. [facility] meloxicam 7.5 mg tablet 2-0 7-12 00:00: 00 Yes 7.5mg Take 1 tablet by mouth in the morning. [facility] meloxicam 7.5 mg tablet 2-0 7-12 00:00: 00 Yes 7.5mg Take 1 tablet by mouth in the morning. [facility] meloxicam 7.5 mg tablet 2-0 7-12 00:00: 00 Yes 7.5mg Take 1 tablet by mouth in the morning. [facility] meloxicam 7.5 mg tablet 2-0 7-12 00:00: 00 Yes 7.5mg Take 1 tablet by mouth in the morning. [facility] meloxicam 7.5 mg tablet 2-0 7-12 00:00: 00 Yes 7.5mg Take 1 tablet by mouth in the morning. [facility] meloxicam 7.5 mg tablet 2-0 7-12 00:00: 00 Yes 7.5mg Take 1 tablet by mouth in the morning. [facility] meloxicam 7.5 mg tablet 2-0 7-12 00:00: 00 Yes 7.5mg Take 1 tablet by mouth in the morning. [facility] meloxicam 7.5 mg tablet 2-0 7-12 00:00: 00 Yes 7.5mg Take 1 tablet by mouth in the morning. [facility] meloxicam 7.5 mg tablet 2022-0 7-12 00:00: 00 Yes 7.5mg Take 1 tablet by mouth in the morning. [facility] meloxicam 7.5 mg tablet 2022-0 7-12 00:00: 00 Yes 7.5mg Take 1 tablet by mouth in the morning. [facility] 7.5 mg tablet 2022-0 7-12 00:00: 00 Yes 7.5mg Take 1 tablet by mouth in the morning. [facility] mel[facility]am 7.5 mg tablet 2022-0 7-12 00:00: 00 Yes 7.5mg Take 1 tablet by mouth in the morning. [facility] mel[facility]am 7.5 mg tablet 2022-0 7-12 00:00: 00 Yes 7.5mg Take 1 tablet by mouth in the morning. [facility] meloxicam 7.5 mg tablet 2022-0 7-12 00:00: 00 Yes 7.5mg Take 1 tablet by mouth in the morning. [facility] meloxicam 7.5 mg tablet 2022-0 7-12 00:00: 00 Yes 7.5mg Take 1 tablet by mouth in the morning. [facility] meloxicam 7.5 mg tablet 2022-0 7-12 00:00: 00 Yes 7.5mg Take 1 tablet by mouth in the morning. [facility] meloxicam 7.5 mg tablet 2022-0 7-12 00:00: 00 Yes 7.5mg Take 1 tablet by mouth in the morning. [facility] 7.5 mg tablet 2022-0 7-12 00:00: 00 Yes 7.5mg Take 1 tablet by mouth in the morning. [facility] meloxicam 7.5 mg tablet 2022-0 7-12 00:00: 00 Yes 7.5mg Take 1 tablet by mouth in the morning. [facility] meloxicam 7.5 mg tablet 2022-0 7-12 00:00: 00 Yes 7.5mg Take 1 tablet by mouth in the morning. [facility] meloxicam 7.5 mg tablet 2022-0 7-12 00:00: 00 Yes 7.5mg Take 1 tablet by mouth in the morning. [facility] 7.5 mg tablet 2-0 7-12 00:00: 00 Yes 7.5mg Take 1 tablet by mouth in the morning. [facility]am 7.5 mg tablet 2-0 7-12 00:00: 00 Yes 7.5mg Take 1 tablet by mouth in the morning. [facility]am 7.5 mg tablet 2-0 7-12 00:00: 00 Yes 7.5mg Take 1 tablet by mouth in the morning. [facility] meloxicam 7.5 mg tablet 2-0 7-12 00:00: 00 Yes 7.5mg Take 1 tablet by mouth in the morning. [facility] meloxicam 7.5 mg tablet 2-0 7-12 00:00: 00 Yes 7.5mg Take 1 tablet by mouth in the morning. [facility] meloxicam 7.5 mg tablet 2-0 7-12 00:00: 00 Yes 7.5mg Take 1 tablet by mouth in the morning. [facility] meloxicam 7.5 mg tablet 2-0 7-12 00:00: 00 Yes 7.5mg Take 1 tablet by mouth in the morning. [facility] meloxicam 7.5 mg tablet 2-0 7-12 00:00: 00 Yes 7.5mg Take 1 tablet by mouth in the morning. [facility] meloxicam 7.5 mg tablet 2-0 7-12 00:00: 00 Yes 7.5mg Take 1 tablet by mouth in the morning. [facility] meloxicam 7.5 mg tablet 2-0 7-12 00:00: 00 Yes 7.5mg Take 1 tablet by mouth in the morning. [facility] meloxicam 7.5 mg tablet 2022-0 7-12 00:00: 00 Yes 7.5mg Take 1 tablet by mouth in the morning. [facility] meloxicam 7.5 mg tablet 2022-0 7-12 00:00: 00 Yes 7.5mg Take 1 tablet by mouth in the morning. [facility].5 mg tablet 2022-0 7-12 00:00: 00 Yes 7.5mg Take 1 tablet by mouth in the morning. [facility] meloxicam 7.5 mg tablet 2022-0 7-12 00:00: 00 Yes 7.5mg Take 1 tablet by mouth in the morning. [facility] meloxicam 7.5 mg tablet 2022-0 7-12 00:00: 00 Yes 7.5mg Take 1 tablet by mouth in the morning. [facility] meloxicam 7.5 mg tablet 2022-0 7-12 00:00: 00 Yes 7.5mg Take 1 tablet by mouth in the morning. [facility] meloxicam 7.5 mg tablet 2-0 7-12 00:00: 00 Yes 7.5mg Take 1 tablet by mouth in the morning. [facility] meloxicam 7.5 mg tablet 2-0 7-12 00:00: 00 Yes 7.5mg Take 1 tablet by mouth in the morning. [facility] meloxicam 7.5 mg tablet 2-0 7-12 00:00: 00 Yes 7.5mg Take 1 tablet by mouth in the morning. [facility] meloxicam 7.5 mg tablet 2-0 7-12 00:00: 00 Yes 7.5mg Take 1 tablet by mouth in the morning. [facility] meloxicam 7.5 mg tablet 2022-0 7-12 00:00: 00 Yes 7.5mg Take 1 tablet by mouth in the morning. [facility] meloxicam 7.5 mg tablet 2022-0 7-12 00:00: 00 Yes 7.5mg Take 1 tablet by mouth in the morning. [facility] meloxicam 7.5 mg tablet 2022-0 7-12 00:00: 00 Yes 7.5mg Take 1 tablet by mouth in the morning. [facility] meloxicam 7.5 mg tablet 2022-0 7-12 00:00: 00 Yes 7.5mg Take 1 tablet by mouth in the morning. [facility] 7.5 mg tablet 2022-0 7-12 00:00: 00 Yes 7.5mg Take 1 tablet by mouth in the morning. [facility] meloxicam 7.5 mg tablet 2022-0 7-12 00:00: 00 Yes 7.5mg Take 1 tablet by mouth in the morning. [facility]am 7.5 mg tablet 2022-0 7-12 00:00: 00 Yes 7.5mg Take 1 tablet by mouth in the morning. [facility] meloxicam 7.5 mg tablet 2022-0 7-12 00:00: 00 Yes 7.5mg Take 1 tablet by mouth in the morning. [facility] meloxicam 7.5 mg tablet 2022-0 7-12 00:00: 00 Yes 7.5mg Take 1 tablet by mouth in the morning. [facility] meloxicam 7.5 mg tablet 2022-0 7-12 00:00: 00 Yes 7.5mg Take 1 tablet by mouth in the morning. [facility] meloxicam 7.5 mg tablet 2022-0 7-12 00:00: 00 Yes 7.5mg Take 1 tablet by mouth in the morning. [facility] meloxicam 7.5 mg tablet 2022-0 7-12 00:00: 00 Yes 7.5mg Take 1 tablet by mouth in the morning. [facility] meloxicam 7.5 mg tablet 2022-0 7-12 00:00: 00 Yes 7.5mg Take 1 tablet by mouth in the morning. [facility] meloxicam 7.5 mg tablet 2022-0 7-12 00:00: 00 Yes 7.5mg Take 1 tablet by mouth in the morning. [facility] meloxicam 7.5 mg tablet 2022-0 7-12 00:00: 00 Yes 7.5mg Take 1 tablet by mouth in the morning. [facility] meloxicam 7.5 mg tablet 2022-0 7-12 00:00: 00 Yes 7.5mg Take 1 tablet by mouth in the morning. [facility] 2-0 7-12 00:00: 00 Yes 7.5mg Take 1 tablet by mouth in the morning. [facility] mel[facility]am 7.5 mg tablet 2021-0 7-12 00:00: 00 Yes 7.5mg Take 1 tablet by mouth in the morning. [facility] meloxicam 7.5 mg tablet 2-0 7-12 00:00: 00 Yes 7.5mg Take 1 tablet by mouth in the morning. [facility] meloxicam 7.5 mg tablet 2021-0 7-12 00:00: 00 Yes 7.5mg Take 1 tablet by mouth in the morning. [facility] meloxicam 7.5 mg tablet 2021-0 7-12 00:00: 00 Yes 7.5mg Take 1 tablet by mouth in the morning. [facility] meloxicam 7.5 mg tablet 2-0 7-12 00:00: 00 Yes 7.5mg Take 1 tablet by mouth in the morning. [facility] meloxicam 7.5 mg tablet 2021-0 7-12 00:00: 00 Yes 7.5mg Take 1 tablet by mouth in the morning. [facility] meloxicam 7.5 mg tablet 2021-0 7-12 00:00: 00 Yes 7.5mg Take 1 tablet by mouth in the morning. [facility] meloxicam 7.5 mg tablet 2-0 7-12 00:00: 00 Yes 7.5mg Take 1 tablet by mouth in the morning. [facility] meloxicam 7.5 mg tablet 2-0 7-12 00:00: 00 Yes 7.5mg Take 1 tablet by mouth in the morning. [facility] meloxicam 7.5 mg tablet 2-0 7-12 00:00: 00 Yes 7.5mg Take 1 tablet by mouth in the morning. [facility] meloxicam 7.5 mg tablet 2-0 7-12 00:00: 00 Yes 7.5mg Take 1 tablet by mouth in the morning. [facility] meloxicam 7.5 mg tablet 2022-0 7-12 00:00: 00 Yes 7.5mg Take 1 tablet by mouth in the morning. [facility] meloxicam 7.5 mg tablet 2022-0 7-12 00:00: 00 Yes 7.5mg Take 1 tablet by mouth in the morning. [facility].5 mg tablet 2022-0 7-12 00:00: 00 Yes 7.5mg Take 1 tablet by mouth in the morning. [facility] meloxicam 7.5 mg tablet 2022-0 7-12 00:00: 00 Yes 7.5mg Take 1 tablet by mouth in the morning. [facility] meloxicam 7.5 mg tablet 2022-0 7-12 00:00: 00 Yes 7.5mg Take 1 tablet by mouth in the morning. [facility] meloxicam 7.5 mg tablet 2022-0 7-12 00:00: 00 Yes 7.5mg Take 1 tablet by mouth in the morning. [facility] meloxicam 7.5 mg tablet 2022-0 7-12 00:00: 00 Yes 7.5mg Take 1 tablet by mouth in the morning. [facility] meloxicam 7.5 mg tablet 2022-0 7-12 00:00: 00 Yes 7.5mg Take 1 tablet by mouth in the morning. [facility] meloxicam 7.5 mg tablet 2022-0 7-12 00:00: 00 Yes 7.5mg Take 1 tablet by mouth in the morning. [facility] meloxicam 7.5 mg tablet 2022-0 7-12 00:00: 00 Yes 7.5mg Take 1 tablet by mouth in the morning. [facility] meloxicam 7.5 mg tablet 2022-0 7-12 00:00: 00 Yes 7.5mg Take 1 tablet by mouth in the morning. [facility] meloxicam 7.5 mg tablet 2022-0 7-12 00:00: 00 Yes 7.5mg Take 1 tablet by mouth in the morning. [facility] meloxicam 7.5 mg tablet 2022-0 7-12 00:00: 00 Yes 7.5mg Take 1 tablet by mouth in the morning. [facility].5 mg tablet 2-0 7-12 00:00: 00 Yes 7.5mg Take 1 tablet by mouth in the morning. [facility] mel[facility]am 7.5 mg tablet 2-0 7-12 00:00: 00 Yes 7.5mg Take 1 tablet by mouth in the morning. [facility] mel[facility]am 7.5 mg tablet 2-0 7-12 00:00: 00 Yes 7.5mg Take 1 tablet by mouth in the morning. [facility] meloxicam 7.5 mg tablet 2-0 7-12 00:00: 00 Yes 7.5mg Take 1 tablet by mouth in the morning. [facility] meloxicam 7.5 mg tablet 2-0 7-12 00:00: 00 Yes 7.5mg Take 1 tablet by mouth in the morning. [facility] meloxicam 7.5 mg tablet 2-0 7-12 00:00: 00 Yes 7.5mg Take 1 tablet by mouth in the morning. [facility] meloxicam 7.5 mg tablet 2-0 7-12 00:00: 00 Yes 7.5mg Take 1 tablet by mouth in the morning. [facility] meloxicam 7.5 mg tablet 2-0 7-12 00:00: 00 Yes 7.5mg Take 1 tablet by mouth in the morning. [facility] meloxicam 7.5 mg tablet 2-0 7-12 00:00: 00 Yes 7.5mg Take 1 tablet by mouth in the morning. [facility] meloxicam 7.5 mg tablet 2-0 7-12 00:00: 00 Yes 7.5mg Take 1 tablet by mouth in the morning. [facility] meloxicam 7.5 mg tablet 2022-0 7-12 00:00: 00 Yes 7.5mg Take 1 tablet by mouth in the morning. [facility] meloxicam 7.5 mg tablet 2022-0 7-12 00:00: 00 Yes 7.5mg Take 1 tablet by mouth in the morning. [facility].5 mg tablet 2022-0 7-12 00:00: 00 Yes 7.5mg Take 1 tablet by mouth in the morning. [facility] meloxicam 7.5 mg tablet 2022-0 7-12 00:00: 00 Yes 7.5mg Take 1 tablet by mouth in the morning. [facility] meloxicam 7.5 mg tablet 2022-0 7-12 00:00: 00 Yes 7.5mg Take 1 tablet by mouth in the morning. [facility] mel[facility]am 7.5 mg tablet 2-0 7-12 00:00: 00 Yes 7.5mg Take 1 tablet by mouth in the morning. [facility] meloxicam 7.5 mg tablet 2-0 7-12 00:00: 00 Yes 7.5mg Take 1 tablet by mouth in the morning. [facility] meloxicam 7.5 mg tablet 2-0 7-12 00:00: 00 Yes 7.5mg Take 1 tablet by mouth in the morning. [facility] meloxicam 7.5 mg tablet 2-0 7-12 00:00: 00 Yes 7.5mg Take 1 tablet by mouth in the morning. [facility] meloxicam 7.5 mg tablet 2-0 7-12 00:00: 00 Yes 7.5mg Take 1 tablet by mouth in the morning. [facility] meloxicam 7.5 mg tablet 2022-0 7-12 00:00: 00 Yes 7.5mg Take 1 tablet by mouth in the morning. [facility] meloxicam 7.5 mg tablet 2022-0 7-12 00:00: 00 Yes 7.5mg Take 1 tablet by mouth in the morning. [facility] meloxicam 7.5 mg tablet 2022-0 7-12 00:00: 00 Yes 7.5mg Take 1 tablet by mouth in the morning. [facility] meloxicam 7.5 mg tablet 2022-0 7-12 00:00: 00 Yes 7.5mg Take 1 tablet by mouth in the morning. [facility] meloxicam 7.5 mg tablet 2022-0 7-12 00:00: 00 Yes 7.5mg Take 1 tablet by mouth in the morning. [facility] meloxicam 7.5 mg tablet 2022-0 7-12 00:00: 00 Yes 7.5mg Take 1 tablet by mouth in the morning. [facility] meloxicam 7.5 mg tablet 2022-0 7-12 00:00: 00 Yes 7.5mg Take 1 tablet by mouth in the morning. [facility] 2022-0 7-12 00:00: 00 Yes 7.5mg Take 1 tablet by mouth in the morning. [facility]am 7.5 mg tablet 2022-0 7-12 00:00: 00 Yes 7.5mg Take 1 tablet by mouth in the morning. [facility] meloxicam 7.5 mg tablet 2022-0 7-12 00:00: 00 Yes 7.5mg Take 1 tablet by mouth in the morning. [facility] mel[facility]am 7.5 mg tablet 2022-0 7-12 00:00: 00 Yes 7.5mg Take 1 tablet by mouth in the morning. [facility] mel[facility]am 7.5 mg tablet 2022-0 7-12 00:00: 00 Yes 7.5mg Take 1 tablet by mouth in the morning. [facility] meloxicam 7.5 mg tablet 2022-0 7-12 00:00: 00 Yes 7.5mg Take 1 tablet by mouth in the morning. [facility] meloxicam 7.5 mg tablet 2022-0 7-12 00:00: 00 Yes 7.5mg Take 1 tablet by mouth in the morning. [facility] meloxicam 7.5 mg tablet 2022-0 7-12 00:00: 00 Yes 7.5mg Take 1 tablet by mouth in the morning. [facility] 2022-0 7-12 00:00: 00 Yes 7.5mg Take 1 tablet by mouth in the morning. [facility] meloxicam 7.5 mg tablet 02-11 00:00: 00 Yes 7.5mg Take 1 tablet by mouth in the morning. [facility] meloxicam 7.5 mg tablet 02-11 00:00: 00 Yes 7.5mg Take 1 tablet by mouth in the morning. [facility] meloxicam 7.5 mg tablet 02-11 00:00: 00 Yes 7.5mg Take 1 tablet by mouth in the morning. [facility] meloxicam 7.5 mg tablet 02-11 00:00: 00 Yes 7.5mg Take 1 tablet by mouth in the morning. [facility] meloxicam 7.5 mg tablet 02-11 00:00: 00 Yes 7.5mg Take 1 tablet by mouth in the morning. [facility] HYDROcodone -acetaminop hen 7.5-325 mg per tablet 02-10 00:00: 00 Yes [id number] 1{tbl} Take 1 tablet by mouth every 6 (six) hours as needed for Pain. Indication s: chronic pain [facility] HYDROcodone -acetaminop hen 7.5-325 mg per tablet 02-10 00:00: 00 03-11 00:00 :00 No [id number] 1{tbl} Take 1 tablet by mouth every 6 (six) hours as needed for Pain. Indication s: chronic pain [facility] albuterol 90 mcg/actuati on inhaler 02-05 00:00: 00 Yes [id number] INHALE 2 PUFFS BY MOUTH EVERY 6 HOURS NEEDED FOR WHEEZING, SHORTNESS OF BREATH OR BRONCHOSPA [facility] chlorhexidi ne 0.12 % mouthwash 02-05 00:00: 00 Yes [id number] 15mL Swish and spit out 15 mL 2 (two) times daily. [facility] albuterol 90 mcg/actuati on inhaler 02-05 00:00: 00 Yes [id number] INHALE 2 PUFFS BY MOUTH EVERY 6 HOURS NEEDED FOR WHEEZING, SHORTNESS OF BREATH OR BRONCHOSPA [facility].12 [facility] mouthwash 2021-0 02-05 00:00: 00 Yes [id number] 15mL Swish and spit out 15 mL 2 (two) times daily. [facility]idi ne 0.12 % mouthwash 2021-0 02-05 00:00: 00 Yes [id number] 15mL Swish and spit out 15 mL 2 (two) times daily. [facility] ne 0.12 % mouthwash 2021-0 02-05 00:00: 00 Yes [id number] 15mL Swish and spit out 15 mL 2 (two) times daily. [facility] chlorhexidi ne 0.12 % mouthwash 2021-0 02-05 00:00: 00 Yes [id number] 15mL Swish and spit out 15 mL 2 (two) times daily. [facility] chlorhexidi ne 0.12 % mouthwash 2021-0 02-05 00:00: 00 Yes [id number] 15mL Swish and spit out 15 mL 2 (two) times daily. [facility] chlorhexidi ne 0.12 % mouthwash 2021-0 02-05 00:00: 00 Yes [id number] 15mL Swish and spit out 15 mL 2 (two) times daily. [facility] chlorhexidi ne 0.12 % mouthwash 2021-0 02-05 00:00: 00 Yes [id number] 15mL Swish and spit out 15 mL 2 (two) times daily. [facility] chlorhexidi ne 0.12 % mouthwash 2021-0 02-05 00:00: 00 Yes [id number] 15mL Swish and spit out 15 mL 2 (two) times daily. [facility] 2-0 02-05 00:00: 00 Yes [id number] 15mL Swish and spit out 15 mL 2 (two) times daily. [facility] chlorhexidi ne 0.12 % mouthwash 2021-0 02-05 00:00: 00 Yes [id number] 15mL Swish and spit out 15 mL 2 (two) times daily. [facility] chlorhexidi ne 0.12 % mouthwash 2021-0 02-05 00:00: 00 Yes [id number] 15mL Swish and spit out 15 mL 2 (two) times daily. [facility] chlorhexidi ne 0.12 % mouthwash 2021-0 02-05 00:00: 00 Yes [id number] 15mL Swish and spit out 15 mL 2 (two) times daily. [facility] chlorhexidi ne 0.12 % mouthwash 2021-0 02-05 00:00: 00 Yes [id number] 15mL Swish and spit out 15 mL 2 (two) times daily. [facility] chlorhexidi ne 0.12 % mouthwash 2021-0 02-05 00:00: 00 Yes [id number] 15mL Swish and spit out 15 mL 2 (two) times daily. [facility] chlorhexidi ne 0.12 % mouthwash 2021-0 02-05 00:00: 00 Yes [id number] 15mL Swish and spit out 15 mL 2 (two) times daily. [facility] chlorhexidi ne 0.12 % mouthwash 2021-0 02-05 00:00: 00 Yes [id number] 15mL Swish and spit out 15 mL 2 (two) times daily. [facility] chlorhexidi ne 0.12 % mouthwash 2021-0 02-05 00:00: 00 Yes [id number] 15mL Swish and spit out 15 mL 2 (two) times daily. [facility] chlorhexidi ne 0.12 % mouthwash 2021-0 02-05 00:00: 00 Yes [id number] 15mL Swish and spit out 15 mL 2 (two) times daily. [facility] chlorhexidi ne 0.12 % mouthwash 2021-0 02-05 00:00: 00 Yes [id number] 15mL Swish and spit out 15 mL 2 (two) times daily. [facility] chlorhexidi ne 0.12 % mouthwash 2021-0 02-05 00:00: 00 Yes [id number] 15mL Swish and spit out 15 mL 2 (two) times daily. [facility] chlorhexidi ne 0.12 % mouthwash 2021-0 02-05 00:00: 00 Yes [id number] 15mL Swish and spit out 15 mL 2 (two) times daily. [facility] chlorhexidi ne 0.12 % mouthwash 2021-0 02-05 00:00: 00 Yes [id number] 15mL Swish and spit out 15 mL 2 (two) times daily. [facility] chlorhexidi ne 0.12 % mouthwash 2021-0 02-05 00:00: 00 Yes [id number] 15mL Swish and spit out 15 mL 2 (two) times daily. [facility] chlorhexidi ne 0.12 % mouthwash 2021-0 02-05 00:00: 00 Yes [id number] 15mL Swish and spit out 15 mL 2 (two) times daily. [facility] chlorhexidi ne 0.12 % mouthwash 2021-0 02-05 00:00: 00 Yes [id number] 15mL Swish and spit out 15 mL 2 (two) times daily. [facility] chlorhexidi ne 0.12 % mouthwash 2021-0 02-05 00:00: 00 Yes [id number] 15mL Swish and spit out 15 mL 2 (two) times daily. [facility] chlorhexidi ne 0.12 % mouthwash 2021-0 02-05 00:00: 00 Yes [id number] 15mL Swish and spit out 15 mL 2 (two) times daily. [facility] chlorhexidi ne 0.12 % mouthwash 2021-0 02-05 00:00: 00 Yes [id number] 15mL Swish and spit out 15 mL 2 (two) times daily. [facility] chlorhexidi ne 0.12 % mouthwash 2021-0 02-05 00:00: 00 Yes [id number] 15mL Swish and spit out 15 mL 2 (two) times daily. [facility] chlorhexidi ne 0.12 % mouthwash 2021-0 02-05 00:00: 00 Yes [id number] 15mL Swish and spit out 15 mL 2 (two) times daily. [facility] chlorhexidi ne 0.12 % mouthwash 2021-0 02-05 00:00: 00 Yes [id number] 15mL Swish and spit out 15 mL 2 (two) times daily. [facility] chlorhexidi ne 0.12 % mouthwash 2021-0 02-05 00:00: 00 Yes [id number] 15mL Swish and spit out 15 mL 2 (two) times daily. [facility].12 [facility] mouthwash 2021-0 02-05 00:00: 00 Yes [id number] 15mL Swish and spit out 15 mL 2 (two) times daily. [facility] chlorhexidi ne 0.12 % mouthwash 2021-0 02-05 00:00: 00 Yes [id number] 15mL Swish and spit out 15 mL 2 (two) times daily. [facility] chlorhexidi ne 0.12 % mouthwash 2021-0 02-05 00:00: 00 Yes [id number] 15mL Swish and spit out 15 mL 2 (two) times daily. [facility] chlorhexidi ne 0.12 % mouthwash 2021-0 02-05 00:00: 00 Yes [id number] 15mL Swish and spit out 15 mL 2 (two) times daily. [facility] chlorhexidi ne 0.12 % mouthwash 2021-0 02-05 00:00: 00 Yes [id number] 15mL Swish and spit out 15 mL 2 (two) times daily. [facility] chlorhexidi ne 0.12 % mouthwash 2021-0 02-05 00:00: 00 Yes [id number] 15mL Swish and spit out 15 mL 2 (two) times daily. [facility] chlorhexidi ne 0.12 % mouthwash 2021-0 02-05 00:00: 00 Yes [id number] 15mL Swish and spit out 15 mL 2 (two) times daily. [facility] chlorhexidi ne 0.12 % mouthwash 2021-0 02-05 00:00: 00 Yes [id number] 15mL Swish and spit out 15 mL 2 (two) times daily. [facility] chlorhexidi ne 0.12 % mouthwash 2021-0 02-05 00:00: 00 Yes [id number] 15mL Swish and spit out 15 mL 2 (two) times daily. [facility] chlorhexidi ne 0.12 % mouthwash 2021-0 02-05 00:00: 00 Yes [id number] 15mL Swish and spit out 15 mL 2 (two) times daily. [facility].12 [facility] mouthwash 2021-0 02-05 00:00: 00 Yes [id number] 15mL Swish and spit out 15 mL 2 (two) times daily. [facility] chlorhexidi ne 0.12 % mouthwash 2021-0 02-05 00:00: 00 Yes [id number] 15mL Swish and spit out 15 mL 2 (two) times daily. [facility].12 [facility] mouthwash 2021-0 02-05 00:00: 00 Yes [id number] 15mL Swish and spit out 15 mL 2 (two) times daily. [facility] chlorhexidi ne 0.12 % mouthwash 2021-0 02-05 00:00: 00 Yes [id number] 15mL Swish and spit out 15 mL 2 (two) times daily. [facility] chlorhexidi ne 0.12 % mouthwash 2021-0 02-05 00:00: 00 Yes [id number] 15mL Swish and spit out 15 mL 2 (two) times daily. [facility] chlorhexidi ne 0.12 % mouthwash 2021-0 02-05 00:00: 00 Yes [id number] 15mL Swish and spit out 15 mL 2 (two) times daily. [facility] chlorhexidi ne 0.12 % mouthwash 2021-0 02-05 00:00: 00 Yes [id number] 15mL Swish and spit out 15 mL 2 (two) times daily. [facility] chlorhexidi ne 0.12 % mouthwash 2021-0 02-05 00:00: 00 Yes [id number] 15mL Swish and spit out 15 mL 2 (two) times daily. [facility] chlorhexidi ne 0.12 % mouthwash 2021-0 02-05 00:00: 00 Yes [id number] 15mL Swish and spit out 15 mL 2 (two) times daily. [facility] mouthwash 2021-0 02-05 00:00: 00 Yes [id number] 15mL Swish and spit out 15 mL 2 (two) times daily. [facility] chlorhexidi ne 0.12 % mouthwash 2021-0 02-05 00:00: 00 Yes [id number] 15mL Swish and spit out 15 mL 2 (two) times daily. [facility] chlorhexidi ne 0.12 % mouthwash 2021-0 02-05 00:00: 00 Yes [id number] 15mL Swish and spit out 15 mL 2 (two) times daily. [facility] chlorhexidi ne 0.12 % mouthwash 2021-0 02-05 00:00: 00 Yes [id number] 15mL Swish and spit out 15 mL 2 (two) times daily. [facility] chlorhexidi ne 0.12 % mouthwash 2021-0 02-05 00:00: 00 Yes [id number] 15mL Swish and spit out 15 mL 2 (two) times daily. [facility] chlorhexidi ne 0.12 % mouthwash 2021-0 02-05 00:00: 00 Yes [id number] 15mL Swish and spit out 15 mL 2 (two) times daily. [facility] chlorhexidi ne 0.12 % mouthwash 2021-0 02-05 00:00: 00 Yes [id number] 15mL Swish and spit out 15 mL 2 (two) times daily. [facility] chlorhexidi ne 0.12 % mouthwash 2021-0 02-05 00:00: 00 Yes [id number] 15mL Swish and spit out 15 mL 2 (two) times daily. [facility] chlorhexidi ne 0.12 % mouthwash 2021-0 02-05 00:00: 00 Yes [id number] 15mL Swish and spit out 15 mL 2 (two) times daily. [facility] chlorhexidi ne 0.12 % mouthwash 2021-0 02-05 00:00: 00 Yes [id number] 15mL Swish and spit out 15 mL 2 (two) times daily. [facility].12 % mouthwash 2021-0 02-05 00:00: 00 Yes [id number] 15mL Swish and spit out 15 mL 2 (two) times daily. [facility] chlorhexidi ne 0.12 % mouthwash 2021-0 02-05 00:00: 00 Yes [id number] 15mL Swish and spit out 15 mL 2 (two) times daily. [facility].12 % mouthwash 2021-0 02-05 00:00: 00 Yes [id number] 15mL Swish and spit out 15 mL 2 (two) times daily. [facility] chlorhexidi ne 0.12 % mouthwash 2021-0 02-05 00:00: 00 Yes [id number] 15mL Swish and spit out 15 mL 2 (two) times daily. [facility] chlorhexidi ne 0.12 % mouthwash 2021-0 02-05 00:00: 00 Yes [id number] 15mL Swish and spit out 15 mL 2 (two) times daily. [facility] chlorhexidi ne 0.12 % mouthwash 2021-0 02-05 00:00: 00 Yes [id number] 15mL Swish and spit out 15 mL 2 (two) times daily. [facility] chlorhexidi ne 0.12 % mouthwash 2-0 02-05 00:00: 00 Yes [id number] 15mL Swish and spit out 15 mL 2 (two) times daily. [facility] chlorhexidi ne 0.12 % mouthwash 2021-0 02-05 00:00: 00 Yes [id number] 15mL Swish and spit out 15 mL 2 (two) times daily. [facility] chlorhexidi ne 0.12 % mouthwash 2021-0 02-05 00:00: 00 Yes [id number] 15mL Swish and spit out 15 mL 2 (two) times daily. [facility] chlorhexidi ne 0.12 % mouthwash 2021-0 02-05 00:00: 00 Yes [id number] 15mL Swish and spit out 15 mL 2 (two) times daily. [facility] chlorhexidi ne 0.12 % mouthwash 2021-0 02-05 00:00: 00 Yes [id number] 15mL Swish and spit out 15 mL 2 (two) times daily. [facility] chlorhexidi ne 0.12 % mouthwash 2021-0 02-05 00:00: 00 Yes [id number] 15mL Swish and spit out 15 mL 2 (two) times daily. [facility] chlorhexidi ne 0.12 % mouthwash 2021-0 02-05 00:00: 00 Yes [id number] 15mL Swish and spit out 15 mL 2 (two) times daily. [facility] chlorhexidi ne 0.12 % mouthwash 2-0 02-05 00:00: 00 Yes [id number] 15mL Swish and spit out 15 mL 2 (two) times daily. [facility] chlorhexidi ne 0.12 % mouthwash 2-0 02-05 00:00: 00 Yes [id number] 15mL Swish and spit out 15 mL 2 (two) times daily. [facility] chlorhexidi ne 0.12 % mouthwash 2-0 02-05 00:00: 00 Yes [id number] 15mL Swish and spit out 15 mL 2 (two) times daily. [facility] chlorhexidi ne 0.12 % mouthwash 2021-0 02-05 00:00: 00 Yes [id number] 15mL Swish and spit out 15 mL 2 (two) times daily. [facility] chlorhexidi ne 0.12 % mouthwash 2021-0 02-05 00:00: 00 Yes [id number] 15mL Swish and spit out 15 mL 2 (two) times daily. [facility] chlorhexidi ne 0.12 % mouthwash 2021-0 02-05 00:00: 00 Yes [id number] 15mL Swish and spit out 15 mL 2 (two) times daily. [facility].12 % mouthwash 2021-0 02-05 00:00: 00 Yes [id number] 15mL Swish and spit out 15 mL 2 (two) times daily. [facility] chlorhexidi ne 0.12 % mouthwash 2021-0 02-05 00:00: 00 Yes [id number] 15mL Swish and spit out 15 mL 2 (two) times daily. [facility]idi ne 0.12 % mouthwash 2021-0 02-05 00:00: 00 Yes [id number] 15mL Swish and spit out 15 mL 2 (two) times daily. [facility] chlorhexidi ne 0.12 % mouthwash 2021-0 02-05 00:00: 00 Yes [id number] 15mL Swish and spit out 15 mL 2 (two) times daily. [facility] chlorhexidi ne 0.12 % mouthwash 2021-0 02-05 00:00: 00 Yes [id number] 15mL Swish and spit out 15 mL 2 (two) times daily. [facility] chlorhexidi ne 0.12 % mouthwash 2021-0 02-05 00:00: 00 Yes [id number] 15mL Swish and spit out 15 mL 2 (two) times daily. [facility] chlorhexidi ne 0.12 % mouthwash 2021-0 02-05 00:00: 00 Yes [id number] 15mL Swish and spit out 15 mL 2 (two) times daily. [facility] chlorhexidi ne 0.12 % mouthwash 2021-0 02-05 00:00: 00 Yes [id number] 15mL Swish and spit out 15 mL 2 (two) times daily. [facility] chlorhexidi ne 0.12 % mouthwash 2021-0 02-05 00:00: 00 Yes [id number] 15mL Swish and spit out 15 mL 2 (two) times daily. [facility] chlorhexidi ne 0.12 % mouthwash 2021-0 02-05 00:00: 00 Yes [id number] 15mL Swish and spit out 15 mL 2 (two) times daily. [facility].12 % mouthwash 2021-0 02-05 00:00: 00 Yes [id number] 15mL Swish and spit out 15 mL 2 (two) times daily. [facility] chlor[facility]idi ne 0.12 % mouthwash 2021-0 02-05 00:00: 00 Yes [id number] 15mL Swish and spit out 15 mL 2 (two) times daily. [facility] chlor[facility]idi ne 0.12 % mouthwash 2021-0 02-05 00:00: 00 Yes [id number] 15mL Swish and spit out 15 mL 2 (two) times daily. [facility] chlorhexidi ne 0.12 % mouthwash 2021-0 02-05 00:00: 00 Yes [id number] 15mL Swish and spit out 15 mL 2 (two) times daily. [facility] chlorhexidi ne 0.12 % mouthwash 2021-0 02-05 00:00: 00 Yes [id number] 15mL Swish and spit out 15 mL 2 (two) times daily. [facility] chlorhexidi ne 0.12 % mouthwash 2-0 02-05 00:00: 00 Yes [id number] 15mL Swish and spit out 15 mL 2 (two) times daily. [facility] chlorhexidi ne 0.12 % mouthwash 2-0 02-05 00:00: 00 Yes [id number] 15mL Swish and spit out 15 mL 2 (two) times daily. [facility] chlorhexidi ne 0.12 % mouthwash 2021-0 02-05 00:00: 00 Yes [id number] 15mL Swish and spit out 15 mL 2 (two) times daily. [facility] chlorhexidi ne 0.12 % mouthwash 2021-0 02-05 00:00: 00 Yes [id number] 15mL Swish and spit out 15 mL 2 (two) times daily. [facility] chlorhexidi ne 0.12 % mouthwash 2021-0 02-05 00:00: 00 Yes [id number] 15mL Swish and spit out 15 mL 2 (two) times daily. [facility] chlorhexidi ne 0.12 % mouthwash 2021-0 02-05 00:00: 00 Yes [id number] 15mL Swish and spit out 15 mL 2 (two) times daily. [facility] chlorhexidi ne 0.12 % mouthwash 2021-0 02-05 00:00: 00 Yes [id number] 15mL Swish and spit out 15 mL 2 (two) times daily. [facility] chlorhexidi ne 0.12 % mouthwash 2021-0 02-05 00:00: 00 Yes [id number] 15mL Swish and spit out 15 mL 2 (two) times daily. [facility] chlorhexidi ne 0.12 % mouthwash 2021-0 02-05 00:00: 00 Yes [id number] 15mL Swish and spit out 15 mL 2 (two) times daily. [facility] chlorhexidi ne 0.12 % mouthwash 2021-0 02-05 00:00: 00 Yes [id number] 15mL Swish and spit out 15 mL 2 (two) times daily. [facility] chlorhexidi ne 0.12 % mouthwash 2021-0 02-05 00:00: 00 Yes [id number] 15mL Swish and spit out 15 mL 2 (two) times daily. [facility] chlorhexidi ne 0.12 % mouthwash 02-05 00:00: 00 Yes [id number] 15mL Swish and spit out 15 mL 2 (two) times daily. [facility] chlorhexidi ne 0.12 % mouthwash 02-05 00:00: 00 Yes [id number] 15mL Swish and spit out 15 mL 2 (two) times daily. [facility] chlorhexidi ne 0.12 % mouthwash 02-05 00:00: 00 Yes [id number] 15mL Swish and spit out 15 mL 2 (two) times daily. [facility] chlorhexidi ne 0.12 % mouthwash 02-05 00:00: 00 Yes [id number] 15mL Swish and spit out 15 mL 2 (two) times daily. [facility] chlorhexidi ne 0.12 % mouthwash 02-05 00:00: 00 Yes [id number] 15mL Swish and spit out 15 mL 2 (two) times daily. [facility] chlorhexidi ne 0.12 % mouthwash 02-05 00:00: 00 Yes [id number] 15mL Swish and spit out 15 mL 2 (two) times daily. [facility] chlorhexidi ne 0.12 % mouthwash 02-05 00:00: 00 10-27 00:00 :00 No [id number] 15mL Swish and spit out 15 mL 2 (two) times daily. [facility] albuterol 90 mcg/actuati on inhaler 02-05 00:00: 00 03-26 00:00 :00 No [id number] INHALE 2 PUFFS BY MOUTH EVERY 6 HOURS NEEDED FOR WHEEZING, SHORTNESS OF BREATH OR BRONCHOSPA [facility] Insulin Waves, Disposable, (BD ULTRAFINE III MINI PEN) 31 gauge x 3/16" Ndle 2022-0 7-03 00:00: 00 Yes [id number] USE DIRECTED FOUR TIMES DAILY. Dx E11.9 [facility] Insulin Waves, Disposable, (BD ULTRAFINE III MINI PEN) 31 gauge x 3/16" Ndle 2022-0 7-03 00:00: 00 Yes [id number] USE DIRECTED FOUR TIMES DAILY. Dx E11.9 [facility] Insulin Waves, Disposable, (BD ULTRAFINE III MINI PEN) 31 gauge x 3/16" Ndle 2022-0 7-03 00:00: 00 Yes [id number] USE DIRECTED FOUR TIMES DAILY. Dx E11.9 [facility] Insulin Waves, Disposable, (BD ULTRAFINE III MINI PEN) 31 gauge x 3/16" Ndle 2022-0 7-03 00:00: 00 Yes [id number] USE DIRECTED FOUR TIMES DAILY. Dx E11.9 [facility] Insulin Waves, Disposable, (BD ULTRAFINE III MINI PEN) 31 gauge x 3/16" Ndle 2022-0 7-03 00:00: 00 Yes [id number] USE DIRECTED FOUR TIMES DAILY. Dx E11.9 [facility] Insulin Waves, Disposable, (BD ULTRAFINE III MINI PEN) 31 gauge x 3/16" Ndle 2022-0 7-03 00:00: 00 Yes [id number] USE DIRECTED FOUR TIMES DAILY. Dx E11.9 [facility] Insulin Waves, Disposable, (BD ULTRAFINE III MINI PEN) 31 gauge x 3/16" Ndle 2022-0 7-03 00:00: 00 Yes [id number] USE DIRECTED FOUR TIMES DAILY. Dx E11.9 [facility] Insulin Waves, Disposable, (BD ULTRAFINE III MINI PEN) 31 gauge x 3/16" Ndle 2022-0 7-03 00:00: 00 Yes [id number] USE DIRECTED FOUR TIMES DAILY. Dx E11.9 [facility] Insulin Waves, Disposable, (BD ULTRAFINE III MINI PEN) 31 gauge x 3/16" Ndle 2022-0 7-03 00:00: 00 Yes [id number] USE DIRECTED FOUR TIMES DAILY. Dx E11.9 [facility] Insulin Waves, Disposable, (BD ULTRAFINE III MINI PEN) 31 gauge x 3/16" Ndle 2022-0 7-03 00:00: 00 Yes [id number] USE DIRECTED FOUR TIMES DAILY. Dx E11.9 [facility] Insulin Waves, Disposable, (BD ULTRAFINE III MINI PEN) 31 gauge x 3/16" Ndle 2022-0 7-03 00:00: 00 Yes [id number] USE DIRECTED FOUR TIMES DAILY. Dx E11.9 [facility] Insulin Waves, Disposable, (BD ULTRAFINE III MINI PEN) 31 gauge x 3/16" Ndle 2022-0 7-03 00:00: 00 Yes [id number] USE DIRECTED FOUR TIMES DAILY. Dx E11.9 [facility] Insulin Waves, Disposable, (BD ULTRAFINE III MINI PEN) 31 gauge x 3/16" Ndle 2022-0 7-03 00:00: 00 Yes [id number] USE DIRECTED FOUR TIMES DAILY. Dx E11.9 [facility] Insulin Waves, Disposable, (BD ULTRAFINE III MINI PEN) 31 gauge x 3/16" Ndle 2022-0 7-03 00:00: 00 Yes [id number] USE DIRECTED FOUR TIMES DAILY. Dx E11.9 [facility] Insulin Waves, Disposable, (BD ULTRAFINE III MINI PEN) 31 gauge x 3/16" Ndle 2022-0 7-03 00:00: 00 Yes [id number] USE DIRECTED FOUR TIMES DAILY. Dx E11.9 [facility] Insulin Waves, Disposable, (BD ULTRAFINE III MINI PEN) 31 gauge x 3/16" Ndle 2022-0 7-03 00:00: 00 Yes [id number] USE DIRECTED FOUR TIMES DAILY. Dx E11.9 [facility] Insulin Waves, Disposable, (BD ULTRAFINE III MINI PEN) 31 gauge x 3/16" Ndle 2022-0 7-03 00:00: 00 Yes [id number] USE DIRECTED FOUR TIMES DAILY. Dx E11.9 [facility] Insulin Waves, Disposable, (BD ULTRAFINE III MINI PEN) 31 gauge x 3/16" Ndle 2022-0 7-03 00:00: 00 Yes [id number] USE DIRECTED FOUR TIMES DAILY. Dx E11.9 [facility] Insulin Waves, Disposable, (BD ULTRAFINE III MINI PEN) 31 gauge x 3/16" Ndle 2022-0 7-03 00:00: 00 Yes [id number] USE DIRECTED FOUR TIMES DAILY. Dx E11.9 [facility] Insulin Waves, Disposable, (BD ULTRAFINE III MINI PEN) 31 gauge x 3/16" Ndle 2022-0 7-03 00:00: 00 Yes [id number] USE DIRECTED FOUR TIMES DAILY. Dx E11.9 [facility] Insulin Waves, Disposable, (BD ULTRAFINE III MINI PEN) 31 gauge x 3/16" Ndle 2022-0 7-03 00:00: 00 Yes [id number] USE DIRECTED FOUR TIMES DAILY. Dx E11.9 [facility] Insulin Waves, Disposable, (BD ULTRAFINE III MINI PEN) 31 gauge x 3/16" Ndle 2022-0 7-03 00:00: 00 Yes [id number] USE DIRECTED FOUR TIMES DAILY. Dx E11.9 [facility] Insulin Waves, Disposable, (BD ULTRAFINE III MINI PEN) 31 gauge x 3/16" Ndle 2022-0 7-03 00:00: 00 Yes [id number] USE DIRECTED FOUR TIMES DAILY. Dx E11.9 [facility] Insulin Waves, Disposable, (BD ULTRAFINE III MINI PEN) 31 gauge x 3/16" Ndle 2022-0 7-03 00:00: 00 Yes [id number] USE DIRECTED FOUR TIMES DAILY. Dx E11.9 [facility] Insulin Waves, Disposable, (BD ULTRAFINE III MINI PEN) 31 gauge x 3/16" Ndle 2022-0 7-03 00:00: 00 Yes [id number] USE DIRECTED FOUR TIMES DAILY. Dx E11.9 [facility] Insulin Waves, Disposable, (BD ULTRAFINE III MINI PEN) 31 gauge x 3/16" Ndle 2022-0 7-03 00:00: 00 Yes [id number] USE DIRECTED FOUR TIMES DAILY. Dx E11.9 [facility] Insulin Waves, Disposable, (BD ULTRAFINE III MINI PEN) 31 gauge x 3/16" Ndle 2022-0 7-03 00:00: 00 Yes [id number] USE DIRECTED FOUR TIMES DAILY. Dx E11.9 [facility] Insulin Waves, Disposable, (BD ULTRAFINE III MINI PEN) 31 gauge x 3/16" Ndle 2022-0 7-03 00:00: 00 Yes [id number] USE DIRECTED FOUR TIMES DAILY. Dx E11.9 [facility] Insulin Waves, Disposable, (BD ULTRAFINE III MINI PEN) 31 gauge x 3/16" Ndle 2022-0 7-03 00:00: 00 Yes [id number] USE DIRECTED FOUR TIMES DAILY. Dx E11.9 [facility] Insulin Waves, Disposable, (BD ULTRAFINE III MINI PEN) 31 gauge x 3/16" Ndle 2022-0 7-03 00:00: 00 Yes [id number] USE DIRECTED FOUR TIMES DAILY. Dx E11.9 [facility] Insulin Waves, Disposable, (BD ULTRAFINE III MINI PEN) 31 gauge x 3/16" Ndle 2022-0 7-03 00:00: 00 Yes [id number] USE DIRECTED FOUR TIMES DAILY. Dx E11.9 [facility] Insulin Waves, Disposable, (BD ULTRAFINE III MINI PEN) 31 gauge x 3/16" Ndle 2022-0 7-03 00:00: 00 Yes [id number] USE DIRECTED FOUR TIMES DAILY. Dx E11.9 [facility] Insulin Waves, Disposable, (BD ULTRAFINE III MINI PEN) 31 gauge x 3/16" Ndle 2022-0 7-03 00:00: 00 Yes [id number] USE DIRECTED FOUR TIMES DAILY. Dx E11.9 [facility] Insulin Waves, Disposable, (BD ULTRAFINE III MINI PEN) 31 gauge x 3/16" Ndle 2022-0 7-03 00:00: 00 Yes [id number] USE DIRECTED FOUR TIMES DAILY. Dx E11.9 [facility] Insulin Waves, Disposable, (BD ULTRAFINE III MINI PEN) 31 gauge x 3/16" Ndle 2022-0 7-03 00:00: 00 Yes [id number] USE DIRECTED FOUR TIMES DAILY. Dx E11.9 [facility] Insulin Waves, Disposable, (BD ULTRAFINE III MINI PEN) 31 gauge x 3/16" Ndle 2022-0 7-03 00:00: 00 Yes [id number] USE DIRECTED FOUR TIMES DAILY. Dx E11.9 [facility] Insulin Waves, Disposable, (BD ULTRAFINE III MINI PEN) 31 gauge x 3/16" Ndle 2022-0 7-03 00:00: 00 Yes [id number] USE DIRECTED FOUR TIMES DAILY. Dx E11.9 [facility] Insulin Waves, Disposable, (BD ULTRAFINE III MINI PEN) 31 gauge x 3/16" Ndle 2022-0 7-03 00:00: 00 Yes [id number] USE DIRECTED FOUR TIMES DAILY. Dx E11.9 [facility] Insulin Waves, Disposable, (BD ULTRAFINE III MINI PEN) 31 gauge x 3/16" Ndle 2022-0 7-03 00:00: 00 Yes [id number] USE DIRECTED FOUR TIMES DAILY. Dx E11.9 [facility] Insulin Waves, Disposable, (BD ULTRAFINE III MINI PEN) 31 gauge x 3/16" Ndle 2022-0 7-03 00:00: 00 Yes [id number] USE DIRECTED FOUR TIMES DAILY. Dx E11.9 [facility] Insulin Waves, Disposable, (BD ULTRAFINE III MINI PEN) 31 gauge x 3/16" Ndle 2022-0 7-03 00:00: 00 Yes [id number] USE DIRECTED FOUR TIMES DAILY. Dx E11.9 [facility] Insulin Waves, Disposable, (BD ULTRAFINE III MINI PEN) 31 gauge x 3/16" Ndle 2022-0 7-03 00:00: 00 Yes [id number] USE DIRECTED FOUR TIMES DAILY. Dx E11.9 [facility] Insulin Waves, Disposable, (BD ULTRAFINE III MINI PEN) 31 gauge x 3/16" Ndle 2022-0 7-03 00:00: 00 Yes [id number] USE DIRECTED FOUR TIMES DAILY. Dx E11.9 [facility] Insulin Waves, Disposable, (BD ULTRAFINE III MINI PEN) 31 gauge x 3/16" Ndle 2022-0 7-03 00:00: 00 Yes [id number] USE DIRECTED FOUR TIMES DAILY. Dx E11.9 [facility] Insulin Waves, Disposable, (BD ULTRAFINE III MINI PEN) 31 gauge x 3/16" Ndle 2022-0 7-03 00:00: 00 Yes [id number] USE DIRECTED FOUR TIMES DAILY. Dx E11.9 [facility] Insulin Waves, Disposable, (BD ULTRAFINE III MINI PEN) 31 gauge x 3/16" Ndle 2022-0 7-03 00:00: 00 Yes [id number] USE DIRECTED FOUR TIMES DAILY. Dx E11.9 [facility] Insulin Waves, Disposable, (BD ULTRAFINE III MINI PEN) 31 gauge x 3/16" Ndle 2022-0 7-03 00:00: 00 Yes [id number] USE DIRECTED FOUR TIMES DAILY. Dx E11.9 [facility] Insulin Waves, Disposable, (BD ULTRAFINE III MINI PEN) 31 gauge x 3/16" Ndle 2022-0 7-03 00:00: 00 Yes [id number] USE DIRECTED FOUR TIMES DAILY. Dx E11.9 [facility] Insulin Waves, Disposable, (BD ULTRAFINE III MINI PEN) 31 gauge x 3/16" Ndle 2022-0 7-03 00:00: 00 Yes [id number] USE DIRECTED FOUR TIMES DAILY. Dx E11.9 [facility] Insulin Waves, Disposable, (BD ULTRAFINE III MINI PEN) 31 gauge x 3/16" Ndle 2022-0 7-03 00:00: 00 Yes [id number] USE DIRECTED FOUR TIMES DAILY. Dx E11.9 [facility] Insulin Waves, Disposable, (BD ULTRAFINE III MINI PEN) 31 gauge x 3/16" Ndle 2022-0 7-03 00:00: 00 Yes [id number] USE DIRECTED FOUR TIMES DAILY. Dx E11.9 [facility] Insulin Waves, Disposable, (BD ULTRAFINE III MINI PEN) 31 gauge x 3/16" Ndle 2022-0 7-03 00:00: 00 Yes [id number] USE DIRECTED FOUR TIMES DAILY. Dx E11.9 [facility] Insulin Waves, Disposable, (BD ULTRAFINE III MINI PEN) 31 gauge x 3/16" Ndle 2022-0 7-03 00:00: 00 Yes [id number] USE DIRECTED FOUR TIMES DAILY. Dx E11.9 [facility] Insulin Waves, Disposable, (BD ULTRAFINE III MINI PEN) 31 gauge x 3/16" Ndle 2022-0 7-03 00:00: 00 Yes [id number] USE DIRECTED FOUR TIMES DAILY. Dx E11.9 [facility] Insulin Waves, Disposable, (BD ULTRAFINE III MINI PEN) 31 gauge x 3/16" Ndle 2022-0 7-03 00:00: 00 Yes [id number] USE DIRECTED FOUR TIMES DAILY. Dx E11.9 [facility] Insulin Waves, Disposable, (BD ULTRAFINE III MINI PEN) 31 gauge x 3/16" Ndle 2022-0 7-03 00:00: 00 Yes [id number] USE DIRECTED FOUR TIMES DAILY. Dx E11.9 [facility] Insulin Waves, Disposable, (BD ULTRAFINE III MINI PEN) 31 gauge x 3/16" Ndle 2022-0 7-03 00:00: 00 Yes [id number] USE DIRECTED FOUR TIMES DAILY. Dx E11.9 [facility] Insulin Waves, Disposable, (BD ULTRAFINE III MINI PEN) 31 gauge x 3/16" Ndle 2022-0 7-03 00:00: 00 Yes [id number] USE DIRECTED FOUR TIMES DAILY. Dx E11.9 [facility] Insulin Waves, Disposable, (BD ULTRAFINE III MINI PEN) 31 gauge x 3/16" Ndle 2022-0 7-03 00:00: 00 Yes [id number] USE DIRECTED FOUR TIMES DAILY. Dx E11.9 [facility] Insulin Waves, Disposable, (BD ULTRAFINE III MINI PEN) 31 gauge x 3/16" Ndle 2022-0 7-03 00:00: 00 Yes [id number] USE DIRECTED FOUR TIMES DAILY. Dx E11.9 [facility] Insulin Waves, Disposable, (BD ULTRAFINE III MINI PEN) 31 gauge x 3/16" Ndle 2022-0 7-03 00:00: 00 Yes [id number] USE DIRECTED FOUR TIMES DAILY. Dx E11.9 [facility] Insulin Waves, Disposable, (BD ULTRAFINE III MINI PEN) 31 gauge x 3/16" Ndle 2022-0 7-03 00:00: 00 Yes [id number] USE DIRECTED FOUR TIMES DAILY. Dx E11.9 [facility] Insulin Waves, Disposable, (BD ULTRAFINE III MINI PEN) 31 gauge x 3/16" Ndle 2022-0 7-03 00:00: 00 Yes [id number] USE DIRECTED FOUR TIMES DAILY. Dx E11.9 [facility] Insulin Waves, Disposable, (BD ULTRAFINE III MINI PEN) 31 gauge x 3/16" Ndle 2022-0 7-03 00:00: 00 Yes [id number] USE DIRECTED FOUR TIMES DAILY. Dx E11.9 [facility] Insulin Waves, Disposable, (BD ULTRAFINE III MINI PEN) 31 gauge x 3/16" Ndle 2022-0 7-03 00:00: 00 Yes [id number] USE DIRECTED FOUR TIMES DAILY. Dx E11.9 [facility] Insulin Waves, Disposable, (BD ULTRAFINE III MINI PEN) 31 gauge x 3/16" Ndle 2022-0 7-03 00:00: 00 Yes [id number] USE DIRECTED FOUR TIMES DAILY. Dx E11.9 [facility] Insulin Waves, Disposable, (BD ULTRAFINE III MINI PEN) 31 gauge x 3/16" Ndle 2022-0 7-03 00:00: 00 Yes [id number] USE DIRECTED FOUR TIMES DAILY. Dx E11.9 [facility] Insulin Waves, Disposable, (BD ULTRAFINE III MINI PEN) 31 gauge x 3/16" Ndle 2022-0 7-03 00:00: 00 Yes [id number] USE DIRECTED FOUR TIMES DAILY. Dx E11.9 [facility] Insulin Waves, Disposable, (BD ULTRAFINE III MINI PEN) 31 gauge x 3/16" Ndle 2022-0 7-03 00:00: 00 Yes [id number] USE DIRECTED FOUR TIMES DAILY. Dx E11.9 [facility] Insulin Waves, Disposable, (BD ULTRAFINE III MINI PEN) 31 gauge x 3/16" Ndle 2022-0 7-03 00:00: 00 Yes [id number] USE DIRECTED FOUR TIMES DAILY. Dx E11.9 [facility] Insulin Waves, Disposable, (BD ULTRAFINE III MINI PEN) 31 gauge x 3/16" Ndle 2022-0 7-03 00:00: 00 Yes [id number] USE DIRECTED FOUR TIMES DAILY. Dx E11.9 [facility] Insulin Waves, Disposable, (BD ULTRAFINE III MINI PEN) 31 gauge x 3/16" Ndle 2022-0 7-03 00:00: 00 Yes [id number] USE DIRECTED FOUR TIMES DAILY. Dx E11.9 [facility] Insulin Waves, Disposable, (BD ULTRAFINE III MINI PEN) 31 gauge x 3/16" Ndle 2022-0 7-03 00:00: 00 Yes [id number] USE DIRECTED FOUR TIMES DAILY. Dx E11.9 [facility] Insulin Waves, Disposable, (BD ULTRAFINE III MINI PEN) 31 gauge x 3/16" Ndle 2022-0 7-03 00:00: 00 Yes [id number] USE DIRECTED FOUR TIMES DAILY. Dx E11.9 [facility] Insulin Waves, Disposable, (BD ULTRAFINE III MINI PEN) 31 gauge x 3/16" Ndle 2022-0 7-03 00:00: 00 Yes [id number] USE DIRECTED FOUR TIMES DAILY. Dx E11.9 [facility] Insulin Waves, Disposable, (BD ULTRAFINE III MINI PEN) 31 gauge x 3/16" Ndle 2022-0 7-03 00:00: 00 Yes [id number] USE DIRECTED FOUR TIMES DAILY. Dx E11.9 [facility] Insulin Waves, Disposable, (BD ULTRAFINE III MINI PEN) 31 gauge x 3/16" Ndle 2022-0 7-03 00:00: 00 Yes [id number] USE DIRECTED FOUR TIMES DAILY. Dx E11.9 [facility] Insulin Waves, Disposable, (BD ULTRAFINE III MINI PEN) 31 gauge x 3/16" Ndle 2022-0 7-03 00:00: 00 Yes [id number] USE DIRECTED FOUR TIMES DAILY. Dx E11.9 [facility] Insulin Waves, Disposable, (BD ULTRAFINE III MINI PEN) 31 gauge x 3/16" Ndle 2022-0 7-03 00:00: 00 Yes [id number] USE DIRECTED FOUR TIMES DAILY. Dx E11.9 [facility] Insulin Waves, Disposable, (BD ULTRAFINE III MINI PEN) 31 gauge x 3/16" Ndle 2022-0 7-03 00:00: 00 Yes [id number] USE DIRECTED FOUR TIMES DAILY. Dx E11.9 [facility] Insulin Waves, Disposable, (BD ULTRAFINE III MINI PEN) 31 gauge x 3/16" Ndle 2022-0 7-03 00:00: 00 Yes [id number] USE DIRECTED FOUR TIMES DAILY. Dx E11.9 [facility] Insulin Waves, Disposable, (BD ULTRAFINE III MINI PEN) 31 gauge x 3/16" Ndle 2022-0 7-03 00:00: 00 Yes [id number] USE DIRECTED FOUR TIMES DAILY. Dx E11.9 [facility] Insulin Waves, Disposable, (BD ULTRAFINE III MINI PEN) 31 gauge x 3/16" Ndle 2022-0 7-03 00:00: 00 Yes [id number] USE DIRECTED FOUR TIMES DAILY. Dx E11.9 [facility] Insulin Waves, Disposable, (BD ULTRAFINE III MINI PEN) 31 gauge x 3/16" Ndle 2022-0 7-03 00:00: 00 Yes [id number] USE DIRECTED FOUR TIMES DAILY. Dx E11.9 [facility] Insulin Waves, Disposable, (BD ULTRAFINE III MINI PEN) 31 gauge x 3/16" Ndle 2022-0 7-03 00:00: 00 Yes [id number] USE DIRECTED FOUR TIMES DAILY. Dx E11.9 [facility] Insulin Waves, Disposable, (BD ULTRAFINE III MINI PEN) 31 gauge x 3/16" Ndle 2022-0 7-03 00:00: 00 Yes [id number] USE DIRECTED FOUR TIMES DAILY. Dx E11.9 [facility] Insulin Waves, Disposable, (BD ULTRAFINE III MINI PEN) 31 gauge x 3/16" Ndle 2022-0 7-03 00:00: 00 Yes [id number] USE DIRECTED FOUR TIMES DAILY. Dx E11.9 [facility] it[facility] Insulin Waves, Disposable, (BD ULTRAFINE III MINI PEN) 31 gauge x 3/16" Ndle 2022-0 7-03 00:00: 00 Yes [id number] USE DIRECTED FOUR TIMES DAILY. Dx E11.9 [facility] Insulin Waves, Disposable, (BD ULTRAFINE III MINI PEN) 31 gauge x 3/16" Ndle 2022-0 7-03 00:00: 00 Yes [id number] USE DIRECTED FOUR TIMES DAILY. Dx E11.9 [facility] Insulin Waves, Disposable, (BD ULTRAFINE III MINI PEN) 31 gauge x 3/16" Ndle 2022-0 7-03 00:00: 00 Yes [id number] USE DIRECTED FOUR TIMES DAILY. Dx E11.9 [facility] Insulin Waves, Disposable, (BD ULTRAFINE III MINI PEN) 31 gauge x 3/16" Ndle 2022-0 7-03 00:00: 00 Yes [id number] USE DIRECTED FOUR TIMES DAILY. Dx E11.9 [facility] Insulin Waves, Disposable, (BD ULTRAFINE III MINI PEN) 31 gauge x 3/16" Ndle 2022-0 7-03 00:00: 00 Yes [id number] USE DIRECTED FOUR TIMES DAILY. [facility] (BD ULTRAFINE III MINI PEN) 31 gauge x 3/16" Ndle 2022-0 7-03 00:00: 00 Yes [id number] USE DIRECTED FOUR TIMES DAILY. Dx E11.9 [facility] Insulin Waves, Disposable, (BD ULTRAFINE III MINI PEN) 31 gauge x 3/16" Ndle 2022-0 7-03 00:00: 00 Yes [id number] USE DIRECTED FOUR TIMES DAILY. Dx E11.9 Univers [facility] Insulin Waves, Disposable, (BD ULTRAFINE III MINI PEN) 31 gauge x 3/16" Ndle 2022-0 7-03 00:00: 00 Yes [id number] USE DIRECTED FOUR TIMES DAILY. Dx E11.9 [facility] Insulin Waves, Disposable, (BD ULTRAFINE III MINI PEN) 31 gauge x 3/16" Ndle 2022-0 7-03 00:00: 00 Yes [id number] USE DIRECTED FOUR TIMES DAILY. Dx E11.9 [facility] Insulin Waves, Disposable, (BD ULTRAFINE III MINI PEN) 31 gauge x 3/16" Ndle 2022-0 7-03 00:00: 00 Yes [id number] USE DIRECTED FOUR TIMES DAILY. Dx E11.9 [facility] Insulin Waves, Disposable, (BD ULTRAFINE III MINI PEN) 31 gauge x 3/16" Ndle 2022-0 7-03 00:00: 00 Yes [id number] USE DIRECTED FOUR TIMES DAILY. Dx E11.9 [facility] Insulin Waves, Disposable, (BD ULTRAFINE III MINI PEN) 31 gauge x 3/16" Ndle 2022-0 7-03 00:00: 00 Yes [id number] USE DIRECTED FOUR TIMES DAILY. Dx E11.9 [facility] Insulin Waves, Disposable, (BD ULTRAFINE III MINI PEN) 31 gauge x 3/16" Ndle 2022-0 7-03 00:00: 00 Yes [id number] USE DIRECTED FOUR TIMES DAILY. Dx E11.9 [facility] Insulin Waves, Disposable, (BD ULTRAFINE III MINI PEN) 31 gauge x 3/16" Ndle 2022-0 7-03 00:00: 00 Yes [id number] USE DIRECTED FOUR TIMES DAILY. Dx E11.9 [facility] Insulin Waves, Disposable, (BD ULTRAFINE III MINI PEN) 31 gauge x 3/16" Ndle 2022-0 7-03 00:00: 00 Yes [id number] USE DIRECTED FOUR TIMES DAILY. Dx E11.9 [facility] Insulin Waves, Disposable, (BD ULTRAFINE III MINI PEN) 31 gauge x 3/16" Ndle 2022-0 7-03 00:00: 00 Yes [id number] USE DIRECTED FOUR TIMES DAILY. Dx E11.9 [facility] Insulin Waves, Disposable, (BD ULTRAFINE III MINI PEN) 31 gauge x 3/16" Ndle 2022-0 7-03 00:00: 00 Yes [id number] USE DIRECTED FOUR TIMES DAILY. Dx E11.9 [facility] Insulin Waves, Disposable, (BD ULTRAFINE III MINI PEN) 31 gauge x 3/16" Ndle 2022-0 7-03 00:00: 00 Yes [id number] USE DIRECTED FOUR TIMES DAILY. Dx E11.9 [facility] Insulin Waves, Disposable, (BD ULTRAFINE III MINI PEN) 31 gauge x 3/16" Ndle 2022-0 7-03 00:00: 00 Yes [id number] USE DIRECTED FOUR TIMES DAILY. Dx E11.9 [facility] Insulin Waves, Disposable, (BD ULTRAFINE III MINI PEN) 31 gauge x 3/16" Ndle 2022-0 7-03 00:00: 00 Yes [id number] USE DIRECTED FOUR TIMES DAILY. Dx E11.9 [facility] Insulin Waves, Disposable, (BD ULTRAFINE III MINI PEN) 31 gauge x 3/16" Ndle 2022-0 7-03 00:00: 00 Yes [id number] USE DIRECTED FOUR TIMES DAILY. Dx E11.9 [facility] Insulin Waves, Disposable, (BD ULTRAFINE III MINI PEN) 31 gauge x 3/16" Ndle 2022-0 7-03 00:00: 00 Yes [id number] USE DIRECTED FOUR TIMES DAILY. Dx E11.9 [facility] Insulin Waves, Disposable, (BD ULTRAFINE III MINI PEN) 31 gauge x 3/16" Ndle 2022-0 7-03 00:00: 00 Yes [id number] USE DIRECTED FOUR TIMES DAILY. Dx E11.9 [facility] Insulin Waves, Disposable, (BD ULTRAFINE III MINI PEN) 31 gauge x 3/16" Ndle 2022-0 7-03 00:00: 00 Yes [id number] USE DIRECTED FOUR TIMES DAILY. Dx E11.9 [facility] Insulin Waves, Disposable, (BD ULTRAFINE III MINI PEN) 31 gauge x 3/16" Ndle 2022-0 7-03 00:00: 00 Yes [id number] USE DIRECTED FOUR TIMES DAILY. Dx E11.9 [facility] Insulin Waves, Disposable, (BD ULTRAFINE III MINI PEN) 31 gauge x 3/16" Ndle 2022-0 7-03 00:00: 00 Yes [id number] USE DIRECTED FOUR TIMES DAILY. Dx E11.9 [facility] Insulin Waves, Disposable, (BD ULTRAFINE III MINI PEN) 31 gauge x 3/16" Ndle 2022-0 7-03 00:00: 00 Yes [id number] USE DIRECTED FOUR TIMES DAILY. Dx E11.9 [facility] Insulin Waves, Disposable, (BD ULTRAFINE III MINI PEN) 31 gauge x 3/16" Ndle 2022-0 7-03 00:00: 00 Yes [id number] USE DIRECTED FOUR TIMES DAILY. Dx E11.9 [facility] Insulin Waves, Disposable, (BD ULTRAFINE III MINI PEN) 31 gauge x 3/16" Ndle 2022-0 7-03 00:00: 00 Yes [id number] USE DIRECTED FOUR TIMES DAILY. Dx E11.9 [facility] Insulin Waves, Disposable, (BD ULTRAFINE III MINI PEN) 31 gauge x 3/16" Ndle 2022-0 7-03 00:00: 00 Yes [id number] USE DIRECTED FOUR TIMES DAILY. Dx E11.9 [facility] it[facility] Insulin Waves, Disposable, (BD ULTRAFINE III MINI PEN) 31 gauge x 3/16" Ndle 2-0 7-03 00:00: 00 Yes [id number] USE DIRECTED FOUR TIMES DAILY. Dx E11.9 [facility] it[facility] Insulin Waves, Disposable, (BD ULTRAFINE III MINI PEN) 31 gauge x 3/16" Ndle 2021-0 7-03 00:00: 00 Yes [id number] USE DIRECTED FOUR TIMES DAILY. Dx E11.9 [facility] it[facility] Insulin Waves, Disposable, (BD ULTRAFINE III MINI PEN) 31 gauge x 3/16" Ndle 2-0 7-03 00:00: 00 Yes [id number] USE DIRECTED FOUR TIMES DAILY. Dx E11.9 [facility] it[facility] Insulin Waves, Disposable, (BD ULTRAFINE III MINI PEN) 31 gauge x 3/16" Ndle 2022-0 7-03 00:00: 00 Yes [id number] USE DIRECTED FOUR TIMES DAILY. Dx E11.9 [facility] it[facility] Insulin Waves, Disposable, (BD ULTRAFINE III MINI PEN) 31 gauge x 3/16" Ndle 2022-0 7-03 00:00: 00 Yes [id number] USE DIRECTED FOUR TIMES DAILY. Dx E11.9 [facility] it[facility] Insulin Waves, Disposable, (BD ULTRAFINE III MINI PEN) 31 gauge x 3/16" Ndle 2022-0 7-03 00:00: 00 Yes [id number] USE DIRECTED FOUR TIMES DAILY. Dx E11.9 [facility] it[facility] Insulin Waves, Disposable, (BD ULTRAFINE III MINI PEN) 31 gauge x 3/16" Ndle 2022-0 7-03 00:00: 00 Yes [id number] USE DIRECTED FOUR TIMES DAILY. Dx E11.9 [facility] it[facility] Insulin Waves, Disposable, (BD ULTRAFINE III MINI PEN) 31 gauge x 3/16" Ndle 2022-0 7-03 00:00: 00 Yes [id number] USE DIRECTED FOUR TIMES DAILY. Dx E11.9 [facility] it[facility] Insulin Waves, Disposable, (BD ULTRAFINE III MINI PEN) 31 gauge x 3/16" Ndle 2022-0 7-03 00:00: 00 Yes [id number] USE DIRECTED FOUR TIMES DAILY. Dx E11.9 [facility] it[facility] Insulin Waves, Disposable, (BD ULTRAFINE III MINI PEN) 31 gauge x 3/16" Ndle 2022-0 7-03 00:00: 00 Yes [id number] USE DIRECTED [facility] TIMES DAILY. [facility], (BD ULTRAFINE III MINI PEN) 31 gauge x 3/16" Ndle 2022-0 7-03 00:00: 00 Yes [id number] USE DIRECTED FOUR TIMES DAILY. Dx E11.9 [facility] it[facility] Insulin Waves, Disposable, (BD ULTRAFINE III MINI PEN) 31 gauge x 3/16" Ndle 2022-0 7-03 00:00: 00 Yes [id number] USE DIRECTED FOUR TIMES DAILY. Dx E11.9 Univers [facility] Insulin Waves, Disposable, (BD ULTRAFINE III MINI PEN) 31 gauge x 3/16" Ndle 2022-0 7-03 00:00: 00 Yes [id number] USE DIRECTED FOUR TIMES DAILY. Dx E11.9 [facility] it[facility] Insulin Waves, Disposable, (BD ULTRAFINE III MINI PEN) 31 gauge x 3/16" Ndle 2022-0 7-03 00:00: 00 Yes [id number] USE DIRECTED FOUR TIMES DAILY. Dx E11.9 [facility] it[facility] Insulin Waves, Disposable, (BD ULTRAFINE III MINI PEN) 31 gauge x 3/16" Ndle 2022-0 7-03 00:00: 00 Yes [id number] USE DIRECTED FOUR TIMES DAILY. Dx E11.9 [facility] it[facility] Insulin Waves, Disposable, (BD ULTRAFINE III MINI PEN) 31 gauge x 3/16" Ndle 2022-0 7-03 00:00: 00 Yes [id number] USE DIRECTED FOUR TIMES DAILY. Dx E11.9 [facility] it[facility] Insulin Waves, Disposable, (BD ULTRAFINE III MINI PEN) 31 gauge x 3/16" Ndle 2022-0 7-03 00:00: 00 Yes [id number] USE DIRECTED FOUR TIMES DAILY. Dx E11.9 [facility] it[facility] Insulin Waves, Disposable, (BD ULTRAFINE III MINI PEN) 31 gauge x 3/16" Ndle 2022-0 7-03 00:00: 00 Yes [id number] USE DIRECTED FOUR TIMES DAILY. Dx E11.9 [facility] it[facility] Insulin Waves, Disposable, (BD ULTRAFINE III MINI PEN) 31 gauge x 3/16" Ndle 2022-0 7-03 00:00: 00 Yes [id number] USE DIRECTED FOUR TIMES DAILY. [facility], (BD ULTRAFINE III MINI PEN) 31 gauge x 3/16" Ndle 2022-0 7-03 00:00: 00 Yes [id number] USE DIRECTED FOUR TIMES DAILY. Dx E11.9 [facility] Insulin Waves, Disposable, (BD ULTRAFINE III MINI PEN) 31 gauge x 3/16" Ndle 2022-0 7-03 00:00: 00 Yes [id number] USE DIRECTED FOUR TIMES DAILY. Dx E11.9 [facility] it[facility] Insulin Waves, Disposable, (BD ULTRAFINE III MINI PEN) 31 gauge x 3/16" Ndle 2022-0 7-03 00:00: 00 Yes [id number] USE DIRECTED FOUR TIMES DAILY. Dx E11.9 [facility] it[facility] Insulin Waves, Disposable, (BD ULTRAFINE III MINI PEN) 31 gauge x 3/16" Ndle 2022-0 7-03 00:00: 00 Yes [id number] USE DIRECTED FOUR TIMES DAILY. Dx E11.9 [facility] it[facility] Insulin Waves, Disposable, (BD ULTRAFINE III MINI PEN) 31 gauge x 3/16" Ndle 2022-0 7-03 00:00: 00 Yes [id number] USE DIRECTED FOUR TIMES DAILY. Dx E11.9 [facility] it[facility] Insulin Waves, Disposable, (BD ULTRAFINE III MINI PEN) 31 gauge x 3/16" Ndle 2022-0 7-03 00:00: 00 Yes [id number] USE DIRECTED FOUR TIMES DAILY. Dx E11.9 [facility] it[facility] Insulin Waves, Disposable, (BD ULTRAFINE III MINI PEN) 31 gauge x 3/16" Ndle 2022-0 7-03 00:00: 00 Yes [id number] USE DIRECTED FOUR TIMES DAILY. Dx E11.9 [facility] it[facility] Insulin Waves, Disposable, (BD ULTRAFINE III MINI PEN) 31 gauge x 3/16" Ndle 2022-0 7-03 00:00: 00 Yes [id number] USE DIRECTED FOUR TIMES DAILY. Dx E11.9 [facility] it[facility] Insulin Waves, Disposable, (BD ULTRAFINE III MINI PEN) 31 gauge x 3/16" Ndle 2022-0 7-03 00:00: 00 Yes [id number] USE DIRECTED FOUR TIMES DAILY. Dx E11.9 [facility] it[facility] Insulin Waves, Disposable, (BD ULTRAFINE III MINI PEN) 31 gauge x 3/16" Ndle 2022-0 7-03 00:00: 00 Yes [id number] USE DIRECTED FOUR TIMES DAILY. Dx E11.9 [facility] it[facility] Insulin Waves, Disposable, (BD ULTRAFINE III MINI PEN) 31 gauge x 3/16" Ndle 2022-0 7-03 00:00: 00 Yes [id number] USE DIRECTED FOUR TIMES DAILY. Dx E11.9 [facility] it[facility] Insulin Waves, Disposable, (BD ULTRAFINE III MINI PEN) 31 gauge x 3/16" Ndle 2022-0 7-03 00:00: 00 Yes [id number] USE DIRECTED FOUR TIMES DAILY. Dx E11.9 [facility] Insulin Waves, Disposable, (BD ULTRAFINE III MINI PEN) 31 gauge x 3/16" Ndle 2022-0 7-03 00:00: 00 Yes [id number] USE DIRECTED FOUR TIMES DAILY. Dx E11.9 [facility] Insulin Waves, Disposable, (BD ULTRAFINE III MINI PEN) 31 gauge x 3/16" Ndle 2022-0 7-03 00:00: 00 Yes [id number] USE DIRECTED FOUR TIMES DAILY. Dx E11.9 [facility] Insulin Waves, Disposable, (BD ULTRAFINE III MINI PEN) 31 gauge x 3/16" Ndle 2022-0 7-03 00:00: 00 Yes [id number] USE DIRECTED FOUR TIMES DAILY. Dx E11.9 [facility] it[facility] Insulin Waves, Disposable, (BD ULTRAFINE III MINI PEN) 31 gauge x 3/16" Ndle 2022-0 7-03 00:00: 00 Yes [id number] USE DIRECTED FOUR TIMES DAILY. Dx E11.9 [facility] it[facility] Insulin Waves, Disposable, (BD ULTRAFINE III MINI PEN) 31 gauge x 3/16" Ndle 2022-0 7-03 00:00: 00 Yes [id number] USE DIRECTED FOUR TIMES DAILY. Dx E11.9 [facility] it[facility] Insulin Waves, Disposable, (BD ULTRAFINE III MINI PEN) 31 gauge x 3/16" Ndle 2022-0 7-03 00:00: 00 Yes [id number] USE DIRECTED FOUR TIMES DAILY. Dx E11.9 [facility] it[facility] Insulin Waves, Disposable, (BD ULTRAFINE III MINI PEN) 31 gauge x 3/16" Ndle 2022-0 7-03 00:00: 00 Yes [id number] USE DIRECTED FOUR TIMES DAILY. Dx E11.9 [facility] it[facility] Insulin Waves, Disposable, (BD ULTRAFINE III MINI PEN) 31 gauge x 3/16" Ndle 2022-0 7-03 00:00: 00 Yes [id number] USE DIRECTED FOUR TIMES DAILY. Dx E11.9 [facility] it[facility] Insulin Waves, Disposable, (BD ULTRAFINE III MINI PEN) 31 gauge x 3/16" Ndle 2022-0 7-03 00:00: 00 Yes [id number] USE DIRECTED FOUR TIMES DAILY. Dx E11.9 [facility] it[facility] Insulin Waves, Disposable, (BD ULTRAFINE III MINI PEN) 31 gauge x 3/16" Ndle 2022-0 7-03 00:00: 00 Yes [id number] USE DIRECTED FOUR TIMES DAILY. Dx E11.9 [facility] it[facility] Insulin Waves, Disposable, (BD ULTRAFINE III MINI PEN) 31 gauge x 3/16" Ndle 2022-0 7-03 00:00: 00 Yes [id number] USE DIRECTED FOUR TIMES DAILY. Dx E11.9 [facility] Insulin Waves, Disposable, (BD ULTRAFINE III MINI PEN) 31 gauge x 3/16" Ndle 2022-0 7-03 00:00: 00 Yes [id number] USE DIRECTED FOUR TIMES DAILY. Dx E11.9 [facility] it[facility] Insulin Waves, Disposable, (BD ULTRAFINE III MINI PEN) 31 gauge x 3/16" Ndle 2022-0 7-03 00:00: 00 Yes [id number] USE DIRECTED FOUR TIMES DAILY. Dx E11.9 [facility] it[facility] Insulin Waves, Disposable, (BD ULTRAFINE III MINI PEN) 31 gauge x 3/16" Ndle 2022-0 7-03 00:00: 00 Yes [id number] USE DIRECTED FOUR TIMES DAILY. Dx E11.9 [facility] it[facility] Insulin Waves, Disposable, (BD ULTRAFINE III MINI PEN) 31 gauge x 3/16" Ndle 2022-0 7-03 00:00: 00 Yes [id number] USE DIRECTED FOUR TIMES DAILY. Dx E11.9 [facility] it[facility] Insulin Waves, Disposable, (BD ULTRAFINE III MINI PEN) 31 gauge x 3/16" Ndle 2022-0 7-03 00:00: 00 Yes [id number] USE DIRECTED FOUR TIMES DAILY. Dx E11.9 [facility] it[facility] Insulin Waves, Disposable, (BD ULTRAFINE III MINI PEN) 31 gauge x 3/16" Ndle 2022-0 7-03 00:00: 00 Yes [id number] USE DIRECTED FOUR TIMES DAILY. Dx E11.9 Univers it[facility] Insulin Waves, Disposable, (BD ULTRAFINE III MINI PEN) 31 gauge x 3/16" Ndle 2022-0 7-03 00:00: 00 Yes [id number] USE DIRECTED FOUR TIMES DAILY. Dx E11.9 [facility] ity [facility] Insulin Waves, Disposable, (BD ULTRAFINE III MINI PEN) 31 gauge x 3/16" Ndle 2022-0 7-03 00:00: 00 Yes [id number] USE DIRECTED FOUR TIMES DAILY. Dx E11.9 [facility] it[facility] Insulin Waves, Disposable, (BD ULTRAFINE III MINI PEN) 31 gauge x 3/16" Ndle 7-03 00:00: 00 Yes [id number] USE DIRECTED FOUR TIMES DAILY. Dx E11.9 Univers [facility] Insulin Waves, Disposable, (BD ULTRAFINE III MINI PEN) 31 gauge x 3/16" Ndle 7-03 00:00: 00 Yes [id number] USE DIRECTED FOUR TIMES DAILY. [facility], (BD ULTRAFINE III MINI PEN) 31 gauge x 3/16" Ndle 7-03 00:00: 00 Yes [id number] USE DIRECTED FOUR TIMES DAILY. Dx E11.9 Univers [facility] Insulin Waves, Disposable, (BD ULTRAFINE III MINI PEN) 31 gauge x 3/16" Ndle 7-03 00:00: 00 Yes [id number] USE DIRECTED FOUR TIMES DAILY. Dx E11.9 Univers [facility] Insulin Waves, Disposable, (BD ULTRAFINE III MINI PEN) 31 gauge x 3/16" Ndle 7-03 00:00: 00 20202-25 00:00 :00 No [id number] USE DIRECTED FOUR TIMES DAILY. Dx E11.9 [facility] TRESIBA FLEXTOUCH U-200 200 unit/mL (3 mL) In 0 - 00:00: 00 Yes [id number] ADMINISTER 62 UNITS UNDER THE SKIN THREE TIMES DAILY [facility] TRESIBA FLEXTOUCH U-200 200 unit/mL (3 mL) In 0 - 00:00: 00 Yes [id number] ADMINISTER 62 UNITS UNDER THE SKIN THREE TIMES DAILY [facility] TRESIBA FLEXTOUCH U-200 200 unit/mL (3 mL) In 0 6- 00:00: 00 Yes [id number] ADMINISTER 62 UNITS UNDER THE SKIN THREE TIMES DAILY [facility] TRESIBA FLEXTOUCH U-200 200 unit/mL (3 mL) In 0 - 00:00: 00 Yes [id number] ADMINISTER 62 UNITS UNDER THE SKIN THREE TIMES DAILY [facility] TRESIBA FLEXTOUCH U-200 200 unit/mL (3 mL) In 0 01-26 00:00: 00 Yes [id number] ADMINISTER 62 UNITS UNDER THE SKIN THREE TIMES DAILY [facility] TRESIBA FLEXTOUCH U-200 200 unit/mL (3 mL) In [facility] 01-26 00:00: 00 Yes [id number] ADMINISTER 62 UNITS UNDER THE SKIN THREE TIMES DAILY [facility] TRESIBA FLEXTOUCH U-200 200 unit/mL (3 mL) In 01-26 00:00: 00 Yes [id number] ADMINISTER 62 UNITS UNDER THE SKIN THREE TIMES DAILY [facility] TRESIBA FLEXTOUCH U-200 200 unit/mL (3 mL) In 2021 01-26 00:00: 00 Yes [id number] ADMINISTER 62 UNITS UNDER THE SKIN THREE TIMES DAILY [facility] TRESIBA FLEXTOUCH U-200 200 unit/mL (3 mL) In 2021 01-26 00:00: 00 Yes [id number] ADMINISTER 62 UNITS UNDER THE SKIN THREE TIMES DAILY [facility] TRESIBA FLEXTOUCH U-200 200 unit/mL (3 mL) In 2021 01-26 00:00: 00 Yes [id number] ADMINISTER 62 UNITS UNDER THE SKIN THREE TIMES DAILY Univers ity [facility] TRESIBA FLEXTOUCH U-200 200 unit/mL (3 mL) [facility] 01-26 00:00: 00 Yes [id number] ADMINISTER 62 UNITS UNDER THE SKIN THREE TIMES DAILY Univers ity [facility] TRESIBA FLEXTOUCH U-200 200 unit/mL (3 mL) In [facility] 01-26 00:00: 00 Yes [id number] ADMINISTER 62 UNITS UNDER THE SKIN THREE TIMES DAILY [facility] TRESIBA FLEXTOUCH U-200 200 unit/mL (3 mL) In 0 01-26 00:00: 00 Yes [id number] ADMINISTER 62 UNITS UNDER THE SKIN THREE TIMES DAILY [facility] TRESIBA FLEXTOUCH U-200 200 unit/mL (3 mL) In 2021 01-26 00:00: 00 Yes [id number] ADMINISTER 62 UNITS UNDER THE SKIN THREE TIMES DAILY Univers ity [facility] TRESIBA FLEXTOUCH U-200 200 unit/mL (3 mL) In [facility] 01-26 00:00: 00 Yes [id number] ADMINISTER 62 UNITS UNDER THE SKIN THREE TIMES DAILY Univers ity [facility] TRESIBA FLEXTOUCH U-200 200 unit/mL (3 mL[place] [address] 01-26 00:00: 00 Yes [id number] ADMINISTER 62 UNITS UNDER THE SKIN THREE TIMES DAILY Univers ity [facility] TRESIBA FLEXTOUCH U-200 200 unit/mL (3 mL) In [facility] 01-26 00:00: 00 Yes [id number] ADMINISTER 62 UNITS UNDER THE SKIN THREE TIMES DAILY Univers ity [facility] TRESIBA FLEXTOUCH U-200 200 unit/mL (3 mL) [place] [address] 01-26 00:00: 00 Yes [id number] ADMINISTER 62 UNITS UNDER THE SKIN THREE TIMES DAILY Univers ity [facility] TRESIBA FLEXTOUCH U-200 200 unit/mL (3 mL) In [facility] 01-26 00:00: 00 Yes [id number] ADMINISTER 62 UNITS UNDER THE SKIN THREE TIMES DAILY Univers ity [facility] TRESIBA FLEXTOUCH U-200 200 unit/mL (3 mL) In [facility] 01-26 00:00: 00 Yes [id number] ADMINISTER 62 UNITS UNDER THE SKIN THREE TIMES DAILY Univers ity [facility] TRESIBA FLEXTOUCH U-200 200 unit/mL (3 mL) In [facility] 01-26 00:00: 00 Yes [id number] ADMINISTER 62 UNITS UNDER THE SKIN THREE TIMES DAILY Univers ity [facility] TRESIBA FLEXTOUCH U-200 200 unit/mL (3 mL) [facility] 2021 01-26 00:00: 00 Yes [id number] ADMINISTER 62 UNITS UNDER THE SKIN THREE TIMES DAILY Univers ity [facility] TRESIBA FLEXTOUCH U-200 200 unit/mL (3 mL) [place] [address] 01-26 00:00: 00 Yes [id number] ADMINISTER 62 UNITS UNDER THE SKIN THREE TIMES DAILY Univers it[facility] TRESIBA FLEXTOUCH U-200 200 unit/mL (3 mL) [place] [address] 01-26 00:00: 00 Yes [id number] ADMINISTER 62 UNITS UNDER THE SKIN THREE TIMES DAILY Univers ity [facility] TRESIBA FLEXTOUCH U-200 200 unit/mL (3 mL) In [facility] 01-26 00:00: 00 Yes [id number] ADMINISTER 62 UNITS UNDER THE SKIN THREE TIMES DAILY Univers ity [facility] TRESIBA FLEXTOUCH U-200 200 unit/mL (3 mL) [place] [address] 01-26 00:00: 00 Yes [id number] ADMINISTER 62 UNITS UNDER THE SKIN THREE TIMES DAILY Univers ity [facility] TRESIBA FLEXTOUCH U-200 200 unit/mL (3 mL) In 2021 01-26 00:00: 00 Yes [id number] ADMINISTER 62 UNITS UNDER THE SKIN THREE TIMES DAILY [facility] TRESIBA FLEXTOUCH U-200 200 unit/mL (3 mL) In [facility] 01-26 00:00: 00 Yes [id number] ADMINISTER 62 UNITS UNDER THE SKIN THREE TIMES DAILY Univers ity [facility] TRESIBA FLEXTOUCH U-200 200 unit/mL (3 mL) [facility] 01-26 00:00: 00 Yes [id number] ADMINISTER 62 UNITS UNDER THE SKIN THREE TIMES DAILY [facility] TRESIBA FLEXTOUCH U-200 200 unit/mL (3 mL) In [facility] 01-26 00:00: 00 Yes [id number] ADMINISTER 62 UNITS UNDER THE SKIN THREE TIMES DAILY Univers y [facility] TRESIBA FLEXTOUCH U-200 200 unit/mL (3 mL) [facility] 01-26 00:00: 00 Yes [id number] ADMINISTER 62 UNITS UNDER THE SKIN THREE TIMES DAILY Univers ity [facility] TRESIBA FLEXTOUCH U-200 200 unit/mL (3 mL) [facility] 01-26 00:00: 00 Yes [id number] ADMINISTER 62 UNITS UNDER THE SKIN THREE TIMES DAILY Univers ity [facility] TRESIBA FLEXTOUCH U-200 200 unit/mL (3 mL) In 2021 01-26 00:00: 00 Yes [id number] ADMINISTER 62 UNITS UNDER THE SKIN THREE TIMES DAILY [facility] TRESIBA FLEXTOUCH U-200 200 unit/mL (3 mL) InPn 6-26 00:00: 00 06-05 00:00 :00 No [id number] ADMINISTER 62 UNITS UNDER THE SKIN THREE TIMES DAILY [facility] VERAPAMIL 240 mg 24 hr capsule 0 - 00:00: 00 Yes [id number] 240mg TAKE 1 CAPSULE BY MOUTH DAILY [facility] VERAPAMIL 240 mg 24 hr capsule 0 12-31 00:00: 00 Yes [id number] 240mg TAKE 1 CAPSULE BY MOUTH DAILY [facility] VERAPAMIL 240 mg 24 hr capsule 0 12-31 00:00: 00 Yes [id number] 240mg TAKE 1 CAPSULE BY MOUTH DAILY [facility] VERAPAMIL 240 mg 24 hr capsule 12-31 00:00: 00 03-31 00:00 :00 No [id number] 240mg TAKE 1 CAPSULE BY MOUTH DAILY [facility] mupirocin 2 % ointment 0 12-25 00:00: 00 Yes [id number] Apply to area(s) 3 (three) times daily. [facility] mupirocin 2 % ointment 0 25 00:00: 00 Yes [id number] Apply to area(s) 3 (three) times daily. [facility] mupirocin 2 % ointment 0 25 00:00: 00 Yes [id number] Apply to area(s) 3 (three) times daily. [facility] mupirocin 2 % ointment 0 -25 00:00: 00 Yes [id number] Apply to area(s) 3 (three) times daily. [facility] mupirocin 2 % ointment 0 5-25 00:00: 00 Yes [id number] Apply to area(s) 3 (three) times daily. [facility] mupirocin 2 % ointment 0 5-25 00:00: 00 Yes [id number] Apply to area(s) 3 (three) times daily. [facility] mupirocin 2 % ointment 2021-0 25 00:00: 00 Yes [id number] Apply to area(s) 3 (three) times daily. [facility] mupirocin 2 % ointment 2021-0 5-25 00:00: 00 Yes [id number] Apply to area(s) 3 (three) times daily. [facility] mupirocin 2 % ointment 2021-0 5-25 00:00: 00 Yes [id number] Apply to area(s) 3 (three) times daily. [facility] mupirocin 2 % ointment 2021-0 525 00:00: 00 Yes [id number] Apply to area(s) 3 (three) times daily. [facility] mupirocin 2 % ointment 2021-0 525 00:00: 00 Yes [id number] Apply to area(s) 3 (three) times daily. [facility] mupirocin 2 % ointment 2021-0 25 00:00: 00 Yes [id number] Apply to area(s) 3 (three) times daily. [facility] mupirocin 2 % ointment 2021-0 525 00:00: 00 Yes [id number] Apply to area(s) 3 (three) times daily. [facility] mupirocin 2 % ointment 2021-0 525 00:00: 00 Yes [id number] Apply to area(s) 3 (three) times daily. [facility] mupirocin 2 % ointment 2021-0 5-25 00:00: 00 Yes [id number] Apply to area(s) 3 (three) times daily. [facility] mupirocin 2 % ointment 2-0 5-25 00:00: 00 Yes [id number] Apply to area(s) 3 (three) times daily. [facility] mupirocin 2 % ointment 2021-0 5-25 00:00: 00 Yes [id number] Apply to area(s) 3 (three) times daily. [facility] mupirocin 2 % ointment 2021-0 25 00:00: 00 Yes [id number] Apply to area(s) 3 (three) times daily. [facility] mupirocin 2 % ointment 2021-0 25 00:00: 00 Yes [id number] Apply to area(s) 3 (three) times daily. [facility] mupirocin 2 % ointment 2021-0 12-25 00:00: 00 Yes [id number] Apply to area(s) 3 (three) times daily. [facility] mupirocin 2 % ointment 2021-0 25 00:00: 00 Yes [id number] Apply to area(s) 3 (three) times daily. [facility]y [facility] mupirocin 2 % ointment 2021-0 25 00:00: 00 Yes [id number] Apply to area(s) 3 (three) times daily. [facility] mupirocin 2 % ointment 2021-0 25 00:00: 00 Yes [id number] Apply to area(s) 3 (three) times daily. [facility] mupirocin 2 % ointment 2021-0 25 00:00: 00 Yes [id number] Apply to area(s) 3 (three) times daily. [facility] mupirocin 2 % ointment 2021-0 25 00:00: 00 Yes [id number] Apply to area(s) 3 (three) times daily. [facility] mupirocin 2 % ointment 2021-0 25 00:00: 00 Yes [id number] Apply to area(s) 3 (three) times daily. [facility] mupirocin 2 % ointment 2021-0 5-25 00:00: 00 Yes [id number] Apply to area(s) 3 (three) times daily. [facility] mupirocin 2 % ointment 2021-0 5-25 00:00: 00 Yes [id number] Apply to area(s) 3 (three) times daily. [facility] mupirocin 2 % ointment 2021-0 525 00:00: 00 Yes [id number] Apply to area(s) 3 (three) times daily. [facility] mupirocin 2 % ointment 2021-0 5-25 00:00: 00 Yes [id number] Apply to area(s) 3 (three) times daily. [facility] mupirocin 2 % ointment 2021-0 -25 00:00: 00 Yes [id number] Apply to area(s) 3 (three) times daily. [facility] mupirocin 2 % ointment 2021-0 525 00:00: 00 Yes [id number] Apply to area(s) 3 (three) times daily. [facility] mupirocin 2 % ointment 2021-0 25 00:00: 00 Yes [id number] Apply to area(s) 3 (three) times daily. [facility] mupirocin 2 % ointment 2021-0 25 00:00: 00 Yes [id number] Apply to area(s) 3 (three) times daily. [facility] mupirocin 2 % ointment 2021-0 25 00:00: 00 Yes [id number] Apply to area(s) 3 (three) times daily. [facility] mupirocin 2 % ointment 2021-0 25 00:00: 00 Yes [id number] Apply to area(s) 3 (three) times daily. [facility] mupirocin 2 % ointment 2021-0 5-25 00:00: 00 Yes [id number] Apply to area(s) 3 (three) times daily. [facility] mupirocin 2 % ointment 2021-0 5-25 00:00: 00 Yes [id number] Apply to area(s) 3 (three) times daily. [facility] mupirocin 2 % ointment 2021-0 5-25 00:00: 00 Yes [id number] Apply to area(s) 3 (three) times daily. [facility] mupirocin 2 % ointment 2021-0 -25 00:00: 00 Yes [id number] Apply to area(s) 3 (three) times daily. [facility] mupirocin 2 % ointment 2021-0 5-25 00:00: 00 Yes [id number] Apply to area(s) 3 (three) times daily. [facility] mupirocin 2 % ointment 2021-0 5-25 00:00: 00 Yes [id number] Apply to area(s) 3 (three) times daily. [facility] mupirocin 2 % ointment 2021-0 5-25 00:00: 00 Yes [id number] Apply to area(s) 3 (three) times daily. [facility] mupirocin 2 % ointment 2021-0 -25 00:00: 00 Yes [id number] Apply to area(s) 3 (three) times daily. [facility] mupirocin 2 % ointment 2021-0 25 00:00: 00 Yes [id number] Apply to area(s) 3 (three) times daily. [facility] mupirocin 2 % ointment 2021-0 5-25 00:00: 00 Yes [id number] Apply to area(s) 3 (three) times daily. [facility] mupirocin 2 % ointment 2021-0 -25 00:00: 00 Yes [id number] Apply to area(s) 3 (three) times daily. [facility] mupirocin 2 % ointment 2021-0 5-25 00:00: 00 Yes [id number] Apply to area(s) 3 (three) times daily. [facility] mupirocin 2 % ointment 2-0 5-25 00:00: 00 Yes [id number] Apply to area(s) 3 (three) times daily. [facility] mupirocin 2 % ointment 2-0 5-25 00:00: 00 Yes [id number] Apply to area(s) 3 (three) times daily. [facility] mupirocin 2 % ointment 12-25 00:00: 00 06-30 00:00 :00 No [id number] Apply to area(s) 3 (three) times daily. [facility] mupirocin 2 % ointment 12-25 00:00: 00 06-30 00:00 :00 No [id number] Apply to area(s) 3 (three) times daily. [facility] aspirin 325 mg tablet 12-10 09:43: 40 Yes 325mg Take 325 mg by mouth daily. [facility] aspirin 325 mg tablet 0 12-10 09:43: 40 Yes 325mg Take 325 mg by mouth daily. [facility] aspirin 325 mg tablet 0 12-10 09:43: 40 Yes 325mg Take 325 mg by mouth daily. [facility] aspirin 325 mg tablet 0 12-10 09:43: 40 Yes 325mg Take 325 mg by mouth daily. [facility] aspirin 325 mg tablet 0 12-10 09:43: 40 Yes 325mg Take 325 mg by mouth daily. [facility] aspirin 325 mg tablet 0 12-10 09:43: 40 Yes 325mg Take 325 mg by mouth daily. [facility] aspirin 325 mg tablet 0 12-10 09:43: 40 Yes 325mg Take 325 mg by mouth daily. [facility] aspirin 325 mg tablet 0 12-10 09:43: 40 Yes 325mg Take 325 mg by mouth daily. [facility] aspirin 325 mg tablet 0 12-10 09:43: 40 Yes 325mg Take 325 mg by mouth daily. [facility] aspirin 325 mg tablet 0 12-10 09:43: 40 Yes 325mg Take 325 mg by mouth daily. [facility] aspirin 325 mg tablet 0 12-10 09:43: 40 Yes 325mg Take 325 mg by mouth daily. [facility] aspirin 325 mg tablet 12-10 09:43: 40 Yes 325mg Take 325 mg by mouth daily. [facility] aspirin 325 mg tablet 12-10 09:43: 40 Yes 325mg Take 325 mg by mouth daily. [facility] 12-10 09:43: 40 Yes 325mg Take 325 mg by mouth daily. [facility] aspirin 325 mg tablet 12-10 09:43: 40 Yes 325mg Take 325 mg by mouth daily. [facility] aspirin 325 mg tablet 12-10 09:43: 40 Yes 325mg Take 325 mg by mouth daily. [facility] aspirin 325 mg tablet 12-10 09:43: 40 Yes 325mg Take 325 mg by mouth daily. [facility] aspirin 325 mg tablet 12-10 09:43: 40 Yes 325mg Take 325 mg by mouth daily. [facility] aspirin 325 mg tablet 12-10 09:43: 40 Yes 325mg Take 325 mg by mouth daily. [facility] aspirin 325 mg tablet 12-10 09:43: 40 Yes 325mg Take 325 mg by mouth daily. [facility] aspirin 325 mg tablet 12-10 09:43: 40 Yes 325mg Take 325 mg by mouth daily. [facility] aspirin 325 mg tablet 12-10 09:43: 40 Yes 325mg Take 325 mg by mouth daily. [facility] aspirin 325 mg tablet 12-10 09:43: 40 Yes 325mg Take 325 mg by mouth daily. [facility] aspirin 325 mg tablet 12-10 09:43: 40 Yes 325mg Take 325 mg by mouth daily. [facility] aspirin 325 mg tablet 12-10 09:43: 40 Yes 325mg Take 325 mg by mouth daily. [facility] aspirin 325 mg tablet 12-10 09:43: 40 Yes 325mg Take 325 mg by mouth daily. [facility] aspirin 325 mg tablet 12-10 09:43: 40 Yes 325mg Take 325 mg by mouth daily. [facility] aspirin 325 mg tablet 12-10 09:43: 40 Yes 325mg Take 325 mg by mouth daily. [facility] aspirin 325 mg tablet 12-10 09:43: 40 Yes 325mg Take 325 mg by mouth daily. [facility] aspirin 325 mg tablet 12-10 09:43: 40 Yes 325mg Take 325 mg by mouth daily. [facility] aspirin 325 mg tablet 12-10 09:43: 40 Yes 325mg Take 325 mg by mouth daily. [facility] aspirin 325 mg tablet 12-10 09:43: 40 Yes 325mg Take 325 mg by mouth daily. [facility] aspirin 325 mg tablet 12-10 09:43: 40 Yes 325mg Take 325 mg by mouth daily. [facility] aspirin 325 mg tablet 12-10 09:43: 40 Yes 325mg Take 325 mg by mouth daily. [facility] aspirin 325 mg tablet 12-10 09:43: 40 Yes 325mg Take 325 mg by mouth daily. [facility] aspirin 325 mg tablet 12-10 09:43: 40 Yes 325mg Take 325 mg by mouth daily. [facility] aspirin 325 mg tablet 12-10 09:43: 40 Yes 325mg Take 325 mg by mouth daily. [facility] aspirin 325 mg tablet 0 12-10 09:43: 40 Yes 325mg Take 325 mg by mouth daily. [facility] mg tablet 12-10 09:43: 40 Yes 325mg Take 325 mg by mouth daily. [facility] 325 mg tablet 12-10 09:43: 40 Yes 325mg Take 325 mg by mouth daily. [facility] aspirin 325 mg tablet 0 12-10 09:43: 40 Yes 325mg Take 325 mg by mouth daily. [facility] aspirin 325 mg tablet 12-10 09:43: 40 Yes 325mg Take 325 mg by mouth daily. [facility] 325 mg tablet 12-10 09:43: 40 Yes 325mg Take 325 mg by mouth daily. [facility] aspirin 325 mg tablet 12-10 09:43: 40 Yes 325mg Take 325 mg by mouth daily. [facility] aspirin 325 mg tablet 12-10 09:43: 40 Yes 325mg Take 325 mg by mouth daily. [facility] aspirin 325 mg tablet 12-10 09:43: 40 Yes 325mg Take 325 mg by mouth daily. [facility] aspirin 325 mg tablet 12-10 09:43: 40 Yes 325mg Take 325 mg by mouth daily. [facility] aspirin 325 mg tablet 12-10 09:43: 40 Yes 325mg Take 325 mg by mouth daily. [facility] aspirin 325 mg tablet 12-10 09:43: 40 Yes 325mg Take 325 mg by mouth daily. [facility] aspirin 325 mg tablet 12-10 09:43: 40 Yes 325mg Take 325 mg by mouth daily. [facility] aspirin 325 mg tablet 12-10 09:43: 40 Yes 325mg Take 325 mg by mouth daily. [facility] aspirin 325 mg tablet 12-10 09:43: 40 Yes 325mg Take 325 mg by mouth daily. [facility] aspirin 325 mg tablet 12-10 09:43: 40 Yes 325mg Take 325 mg by mouth daily. [facility] aspirin 325 mg tablet 12-10 09:43: 40 Yes 325mg Take 325 mg by mouth daily. [facility] aspirin 325 mg tablet 12-10 09:43: 40 Yes 325mg Take 325 mg by mouth daily. [facility] aspirin 325 mg tablet 12-10 09:43: 40 Yes 325mg Take 325 mg by mouth daily. [facility] aspirin 325 mg tablet 12-10 09:43: 40 Yes 325mg Take 325 mg by mouth daily. [facility] 325 mg tablet 12-10 09:43: 40 Yes 325mg Take 325 mg by mouth daily. [facility] aspirin 325 mg tablet 12-10 09:43: 40 Yes 325mg Take 325 mg by mouth daily. [facility] aspirin 325 mg tablet 12-10 09:43: 40 Yes 325mg Take 325 mg by mouth daily. [facility] aspirin 325 mg tablet 12-10 09:43: 40 Yes 325mg Take 325 mg by mouth daily. [facility] aspirin 325 mg tablet 12-10 09:43: 40 Yes 325mg Take 325 mg by mouth daily. [facility] aspirin 325 mg tablet 12-10 09:43: 40 Yes 325mg Take 325 mg by mouth daily. [facility] aspirin 325 mg tablet 12-10 09:43: 40 Yes 325mg Take 325 mg by mouth daily. [facility] aspirin 325 mg tablet 12-10 09:43: 40 Yes 325mg Take 325 mg by mouth daily. [facility] aspirin 325 mg tablet 12-10 09:43: 40 Yes 325mg Take 325 mg by mouth daily. [facility] aspirin 325 mg tablet 12-10 09:43: 40 Yes 325mg Take 325 mg by mouth daily. [facility] aspirin 325 mg tablet 12-10 09:43: 40 Yes 325mg Take 325 mg by mouth daily. [facility] aspirin 325 mg tablet 12-10 09:43: 40 Yes 325mg Take 325 mg by mouth daily. [facility] aspirin 325 mg tablet 12-10 09:43: 40 Yes 325mg Take 325 mg by mouth daily. [facility] aspirin 325 mg tablet 12-10 09:43: 40 Yes 325mg Take 325 mg by mouth daily. [facility] aspirin 325 mg tablet 12-10 09:43: 40 Yes 325mg Take 325 mg by mouth daily. [facility] aspirin 325 mg tablet 0 12-10 09:43: 40 Yes 325mg Take 325 mg by mouth daily. [facility] 325 mg tablet 12-10 09:43: 40 Yes 325mg Take 325 mg by mouth daily. [facility] aspirin 325 mg tablet 12-10 09:43: 40 Yes 325mg Take 325 mg by mouth daily. [facility] 325 mg tablet 12-10 09:43: 40 Yes 325mg Take 325 mg by mouth daily. [facility] aspirin 325 mg tablet 12-10 09:43: 40 Yes 325mg Take 325 mg by mouth daily. [facility] aspirin 325 mg tablet 12-10 09:43: 40 Yes 325mg Take 325 mg by mouth daily. [facility] aspirin 325 mg tablet 12-10 09:43: 40 Yes 325mg Take 325 mg by mouth daily. [facility] aspirin 325 mg tablet 12-10 09:43: 40 Yes 325mg Take 325 mg by mouth daily. [facility] aspirin 325 mg tablet 12-10 09:43: 40 Yes 325mg Take 325 mg by mouth daily. [facility] aspirin 325 mg tablet 12-10 09:43: 40 Yes 325mg Take 325 mg by mouth daily. [facility] aspirin 325 mg tablet 0 12-10 09:43: 40 Yes 325mg Take 325 mg by mouth daily. [facility] aspirin 325 mg tablet 0 12-10 09:43: 40 Yes 325mg Take 325 mg by mouth daily. [facility] aspirin 325 mg tablet 0 12-10 09:43: 40 Yes 325mg Take 325 mg by mouth daily. [facility] aspirin 325 mg tablet 0 12-10 09:43: 40 Yes 325mg Take 325 mg by mouth daily. [facility] aspirin 325 mg tablet 0 12-10 09:43: 40 Yes 325mg Take 325 mg by mouth daily. [facility] aspirin 325 mg tablet 12-10 09:43: 40 Yes 325mg Take 325 mg by mouth daily. [facility] 325 mg tablet 12-10 09:43: 40 Yes 325mg Take 325 mg by mouth daily. [facility] aspirin 325 mg tablet 12-10 09:43: 40 Yes 325mg Take 325 mg by mouth daily. [facility] aspirin 325 mg tablet 12-10 09:43: 40 Yes 325mg Take 325 mg by mouth daily. [facility] aspirin 325 mg tablet 12-10 09:43: 40 Yes 325mg Take 325 mg by mouth daily. [facility] aspirin 325 mg tablet 12-10 09:43: 40 Yes 325mg Take 325 mg by mouth daily. [facility] aspirin 325 mg tablet 12-10 09:43: 40 Yes 325mg Take 325 mg by mouth daily. [facility] aspirin 325 mg tablet 12-10 09:43: 40 Yes 325mg Take 325 mg by mouth daily. [facility] aspirin 325 mg tablet 12-10 09:43: 40 Yes 325mg Take 325 mg by mouth daily. [facility] aspirin 325 mg tablet 12-10 09:43: 40 Yes 325mg Take 325 mg by mouth daily. [facility] aspirin 325 mg tablet 12-10 09:43: 40 Yes 325mg Take 325 mg by mouth daily. [facility] aspirin 325 mg tablet 12-10 09:43: 40 Yes 325mg Take 325 mg by mouth daily. [facility] aspirin 325 mg tablet 12-10 09:43: 40 Yes 325mg Take 325 mg by mouth daily. [facility] aspirin 325 mg tablet 12-10 09:43: 40 Yes 325mg Take 325 mg by mouth daily. [facility] aspirin 325 mg tablet 12-10 09:43: 40 Yes 325mg Take 325 mg by mouth daily. [facility] aspirin 325 mg tablet 12-10 09:43: 40 Yes 325mg Take 325 mg by mouth daily. [facility] aspirin 325 mg tablet 12-10 09:43: 40 Yes 325mg Take 325 mg by mouth daily. [facility] aspirin 325 mg tablet 12-10 09:43: 40 Yes 325mg Take 325 mg by mouth daily. [facility] aspirin 325 mg tablet 12-10 09:43: 40 Yes 325mg Take 325 mg by mouth daily. [facility] aspirin 325 mg tablet 12-10 09:43: 40 Yes 325mg Take 325 mg by mouth daily. [facility] aspirin 325 mg tablet 12-10 09:43: 40 Yes 325mg Take 325 mg by mouth daily. [facility] aspirin 325 mg tablet 12-10 09:43: 40 Yes 325mg Take 325 mg by mouth daily. [facility] aspirin 325 mg tablet 12-10 09:43: 40 Yes 325mg Take 325 mg by mouth daily. [facility] aspirin 325 mg tablet 12-10 09:43: 40 Yes 325mg Take 325 mg by mouth daily. [facility] aspirin 325 mg tablet 12-10 09:43: 40 Yes 325mg Take 325 mg by mouth daily. [facility] aspirin 325 mg tablet 12-10 09:43: 40 Yes 325mg Take 325 mg by mouth daily. [facility] aspirin 325 mg tablet 12-10 09:43: 40 Yes 325mg Take 325 mg by mouth daily. [facility] aspirin 325 mg tablet 12-10 09:43: 40 Yes 325mg Take 325 mg by mouth daily. [facility] aspirin 325 mg tablet 12-10 09:43: 40 Yes 325mg Take 325 mg by mouth daily. [facility] aspirin 325 mg tablet 12-10 09:43: 40 Yes 325mg Take 325 mg by mouth daily. [facility] aspirin 325 mg tablet 12-10 09:43: 40 Yes 325mg Take 325 mg by mouth daily. [facility] 325 mg tablet 12-10 09:43: 40 Yes 325mg Take 325 mg by mouth daily. [facility] aspirin 325 mg tablet 12-10 09:43: 40 Yes 325mg Take 325 mg by mouth daily. [facility] aspirin 325 mg tablet 12-10 09:43: 40 Yes 325mg Take 325 mg by mouth daily. [facility] aspirin 325 mg tablet 12-10 09:43: 40 Yes 325mg Take 325 mg by mouth daily. [facility] aspirin 325 mg tablet 12-10 09:43: 40 Yes 325mg Take 325 mg by mouth daily. [facility] aspirin 325 mg tablet 12-10 09:43: 40 Yes 325mg Take 325 mg by mouth daily. [facility] aspirin 325 mg tablet 12-10 09:43: 40 Yes 325mg Take 325 mg by mouth daily. [facility] aspirin 325 mg tablet 12-10 09:43: 40 Yes 325mg Take 325 mg by mouth daily. [facility] aspirin 325 mg tablet 12-10 09:43: 40 Yes 325mg Take 325 mg by mouth daily. [facility] aspirin 325 mg tablet 12-10 09:43: 40 Yes 325mg Take 325 mg by mouth daily. [facility] aspirin 325 mg tablet 12-10 09:43: 40 Yes 325mg Take 325 mg by mouth daily. [facility] aspirin 325 mg tablet 12-10 09:43: 40 Yes 325mg Take 325 mg by mouth daily. [facility] aspirin 325 mg tablet 12-10 09:43: 40 Yes 325mg Take 325 mg by mouth daily. [facility] aspirin 325 mg tablet 12-10 09:43: 40 Yes 325mg Take 325 mg by mouth daily. [facility] aspirin 325 mg tablet 12-10 09:43: 40 Yes 325mg Take 325 mg by mouth daily. [facility] aspirin 325 mg tablet 12-10 09:43: 40 Yes 325mg Take 325 mg by mouth daily. [facility] aspirin 325 mg tablet 12-10 09:43: 40 Yes 325mg Take 325 mg by mouth daily. [facility] aspirin 325 mg tablet 12-10 09:43: 40 Yes 325mg Take 325 mg by mouth daily. [facility] aspirin 325 mg tablet 12-10 09:43: 40 Yes 325mg Take 325 mg by mouth daily. [facility] 325 mg tablet 12-10 09:43: 40 Yes 325mg Take 325 mg by mouth daily. [facility] aspirin 325 mg tablet 12-10 09:43: 40 Yes 325mg Take 325 mg by mouth daily. [facility] aspirin 325 mg tablet 12-10 09:43: 40 Yes 325mg Take 325 mg by mouth daily. [facility] aspirin 325 mg tablet 12-10 09:43: 40 Yes 325mg Take 325 mg by mouth daily. [facility] aspirin 325 mg tablet 12-10 09:43: 40 Yes 325mg Take 325 mg by mouth daily. [facility] aspirin 325 mg tablet 12-10 09:43: 40 Yes 325mg Take 325 mg by mouth daily. [facility] aspirin 325 mg tablet 12-10 09:43: 40 Yes 325mg Take 325 mg by mouth daily. [facility] aspirin 325 mg tablet 12-10 09:43: 40 Yes 325mg Take 325 mg by mouth daily. [facility] 325 mg tablet 12-10 09:43: 40 Yes 325mg Take 325 mg by mouth daily. [facility] aspirin 325 mg tablet 0 12-10 09:43: 40 Yes 325mg Take 325 mg by mouth daily. [facility] aspirin 325 mg tablet 12-10 09:43: 40 Yes 325mg Take 325 mg by mouth daily. [facility] 325 mg tablet 12-10 09:43: 40 Yes 325mg Take 325 mg by mouth daily. [facility] aspirin 325 mg tablet 12-10 09:43: 40 Yes 325mg Take 325 mg by mouth daily. [facility] 325 mg tablet 12-10 09:43: 40 Yes 325mg Take 325 mg by mouth daily. [facility] aspirin 325 mg tablet 12-10 09:43: 40 Yes 325mg Take 325 mg by mouth daily. [facility] aspirin 325 mg tablet 12-10 09:43: 40 Yes 325mg Take 325 mg by mouth daily. [facility] aspirin 325 mg tablet 12-10 09:43: 40 Yes 325mg Take 325 mg by mouth daily. [facility] aspirin 325 mg tablet 12-10 09:43: 40 Yes 325mg Take 325 mg by mouth daily. [facility] aspirin 325 mg tablet 12-10 09:43: 40 Yes 325mg Take 325 mg by mouth daily. [facility] aspirin 325 mg tablet 12-10 09:43: 40 Yes 325mg Take 325 mg by mouth daily. [facility] aspirin 325 mg tablet 12-10 09:43: 40 Yes 325mg Take 325 mg by mouth daily. [facility] aspirin 325 mg tablet 12-10 09:43: 40 Yes 325mg Take 325 mg by mouth daily. [facility] aspirin 325 mg tablet 12-10 09:43: 40 Yes 325mg Take 325 mg by mouth daily. [facility] aspirin 325 mg tablet 12-10 09:43: 40 Yes 325mg Take 325 mg by mouth daily. [facility] aspirin 325 mg tablet 12-10 09:43: 40 Yes 325mg Take 325 mg by mouth daily. [facility] aspirin 325 mg tablet 12-10 09:43: 40 Yes 325mg Take 325 mg by mouth daily. [facility] aspirin 325 mg tablet 12-10 09:43: 40 Yes 325mg Take 325 mg by mouth daily. [facility] aspirin 325 mg tablet 12-10 09:43: 40 Yes 325mg Take 325 mg by mouth daily. [facility] aspirin 325 mg tablet 12-10 09:43: 40 Yes 325mg Take 325 mg by mouth daily. [facility] aspirin 325 mg tablet 12-10 09:43: 40 Yes 325mg Take 325 mg by mouth daily. [facility] aspirin 325 mg tablet 12-10 09:43: 40 Yes 325mg Take 325 mg by mouth daily. [facility] aspirin 325 mg tablet 12-10 09:43: 40 Yes 325mg Take 325 mg by mouth daily. [facility] aspirin 325 mg tablet 12-10 09:43: 40 Yes 325mg Take 325 mg by mouth daily. [facility] aspirin 325 mg tablet 12-10 09:43: 40 Yes 325mg Take 325 mg by mouth daily. [facility] aspirin 325 mg tablet 12-10 09:43: 40 Yes 325mg Take 325 mg by mouth daily. [facility] aspirin 325 mg tablet 12-10 09:43: 40 Yes 325mg Take 325 mg by mouth daily. [facility] aspirin 325 mg tablet 12-10 09:43: 40 Yes 325mg Take 325 mg by mouth daily. [facility] aspirin 325 mg tablet 12-10 09:43: 40 Yes 325mg Take 325 mg by mouth daily. [facility] aspirin 325 mg tablet 12-10 09:43: 40 Yes 325mg Take 325 mg by mouth daily. [facility] aspirin 325 mg tablet 0 12-10 09:43: 40 Yes 325mg Take 325 mg by mouth daily. [facility] aspirin 325 mg tablet 12-10 09:43: 40 Yes 325mg Take 325 mg by mouth daily. [facility] 12-10 09:43: 40 Yes 325mg Take 325 mg by mouth daily. [facility] aspirin 325 mg tablet 12-10 09:43: 40 Yes 325mg Take 325 mg by mouth daily. [facility] mg tablet 12-10 09:43: 40 Yes 325mg Take 325 mg by mouth daily. [facility] 325 mg tablet 12-10 09:43: 40 Yes 325mg Take 325 mg by mouth daily. [facility] 325 mg tablet 12-10 09:43: 40 Yes 325mg Take 325 mg by mouth daily. [facility] aspirin 325 mg tablet 12-10 09:43: 40 Yes 325mg Take 325 mg by mouth daily. [facility] aspirin 325 mg tablet 12-10 09:43: 40 Yes 325mg Take 325 mg by mouth daily. [facility] aspirin 325 mg tablet 12-10 09:43: 40 Yes 325mg Take 325 mg by mouth daily. [facility] aspirin 325 mg tablet 12-10 09:43: 40 Yes 325mg Take 325 mg by mouth daily. [facility] aspirin 325 mg tablet 12-10 09:43: 40 Yes 325mg Take 325 mg by mouth daily. [facility] aspirin 325 mg tablet 12-10 09:43: 40 Yes 325mg Take 325 mg by mouth daily. [facility] aspirin 325 mg tablet 0 12-10 09:43: 40 Yes 325mg Take 325 mg by mouth daily. [facility] aspirin 325 mg tablet 12-10 09:43: 40 Yes 325mg Take 325 mg by mouth daily. [facility] aspirin 325 mg tablet 12-10 09:43: 40 Yes 325mg Take 325 mg by mouth daily. [facility] aspirin 325 mg tablet 0 12-10 09:43: 40 Yes 325mg Take 325 mg by mouth daily. [facility] aspirin 325 mg tablet 12-10 09:43: 40 Yes 325mg Take 325 mg by mouth daily. [facility] aspirin 325 mg tablet 12-10 09:43: 40 Yes 325mg Take 325 mg by mouth daily. [facility] aspirin 325 mg tablet 12-10 09:43: 40 Yes 325mg Take 325 mg by mouth daily. [facility] aspirin 325 mg tablet 12-10 09:43: 40 Yes 325mg Take 325 mg by mouth daily. [facility] aspirin 325 mg tablet 12-10 09:43: 40 Yes 325mg Take 325 mg by mouth daily. [facility] aspirin 325 mg tablet 12-10 09:43: 40 Yes 325mg Take 325 mg by mouth daily. [facility] aspirin 325 mg tablet 12-10 09:43: 40 Yes 325mg Take 325 mg by mouth daily. [facility] aspirin 325 mg tablet 12-10 09:43: 40 Yes 325mg Take 325 mg by mouth daily. [facility] aspirin 325 mg tablet 12-10 09:43: 40 Yes 325mg Take 325 mg by mouth daily. [facility] aspirin 325 mg tablet 12-10 09:43: 40 Yes 325mg Take 325 mg by mouth daily. [facility] aspirin 325 mg tablet 12-10 09:43: 40 Yes 325mg Take 325 mg by mouth daily. [facility] aspirin 325 mg tablet 12-10 09:43: 40 Yes 325mg Take 325 mg by mouth daily. [facility] aspirin 325 mg tablet 12-10 09:43: 40 Yes 325mg Take 325 mg by mouth daily. [facility] aspirin 325 mg tablet 12-10 09:43: 40 Yes 325mg Take 325 mg by mouth daily. [facility] aspirin 325 mg tablet 12-10 09:43: 40 Yes 325mg Take 325 mg by mouth daily. [facility] aspirin 325 mg tablet 12-10 09:43: 40 Yes 325mg Take 325 mg by mouth daily. [facility] aspirin 325 mg tablet 12-10 09:43: 40 Yes 325mg Take 325 mg by mouth daily. [facility] aspirin 325 mg tablet 12-10 09:43: 40 Yes 325mg Take 325 mg by mouth daily. [facility] aspirin 325 mg tablet 12-10 09:43: 40 Yes 325mg Take 325 mg by mouth daily. [facility] aspirin 325 mg tablet 12-10 09:43: 40 Yes 325mg Take 325 mg by mouth daily. [facility] aspirin 325 mg tablet 12-10 09:43: 40 Yes 325mg Take 325 mg by mouth daily. [facility] aspirin 325 mg tablet 12-10 09:43: 40 Yes 325mg Take 325 mg by mouth daily. [facility] aspirin 325 mg tablet 12-10 09:43: 40 Yes 325mg Take 325 mg by mouth daily. [facility] aspirin 325 mg tablet 12-10 09:43: 40 Yes 325mg Take 325 mg by mouth daily. [facility] aspirin 325 mg tablet 12-10 09:43: 40 Yes 325mg Take 325 mg by mouth daily. [facility] aspirin 325 mg tablet 12-10 09:43: 40 Yes 325mg Take 325 mg by mouth daily. [facility] aspirin 325 mg tablet 12-10 09:43: 40 Yes 325mg Take 325 mg by mouth daily. [facility] aspirin 325 mg tablet 12-10 09:43: 40 Yes 325mg Take 325 mg by mouth daily. [facility] aspirin 325 mg tablet 12-10 09:43: 40 Yes 325mg Take 325 mg by mouth daily. [facility] aspirin 325 mg tablet 12-10 09:43: 40 Yes 325mg Take 325 mg by mouth daily. [facility] aspirin 325 mg tablet 12-10 09:43: 40 Yes 325mg Take 325 mg by mouth daily. [facility] aspirin 325 mg tablet 12-10 09:43: 40 Yes 325mg Take 325 mg by mouth daily. [facility] aspirin 325 mg tablet 12-10 09:43: 40 Yes 325mg Take 325 mg by mouth daily. [facility] aspirin 325 mg tablet 12-10 09:43: 40 Yes 325mg Take 325 mg by mouth daily. [facility] aspirin 325 mg tablet 12-10 09:43: 40 Yes 325mg Take 325 mg by mouth daily. [facility] aspirin 325 mg tablet 12-10 09:43: 40 Yes 325mg Take 325 mg by mouth daily. [facility] aspirin 325 mg tablet 12-10 09:43: 40 Yes 325mg Take 325 mg by mouth daily. [facility] aspirin 325 mg tablet 12-10 09:43: 40 Yes 325mg Take 325 mg by mouth daily. [facility] aspirin 325 mg tablet 12-10 09:43: 40 Yes 325mg Take 325 mg by mouth daily. [facility] aspirin 325 mg tablet 12-10 09:43: 40 Yes 325mg Take 325 mg by mouth daily. [facility] aspirin 325 mg tablet 12-10 09:43: 40 Yes 325mg Take 325 mg by mouth daily. [facility] aspirin 325 mg tablet 0 12-10 09:43: 40 Yes 325mg Take 325 mg by mouth daily. [facility] aspirin 325 mg tablet 0 12-10 09:43: 40 Yes 325mg Take 325 mg by mouth daily. [facility] aspirin 325 mg tablet 12-10 09:43: 40 Yes 325mg Take 325 mg by mouth daily. [facility] aspirin 325 mg tablet 0 12-10 09:43: 40 Yes 325mg Take 325 mg by mouth daily. [facility] aspirin 325 mg tablet 2022-0 5-10 09:43: 40 Yes 325mg Take 325 mg by mouth daily. [facility] 325 mg tablet 2021-0 5-10 09:43: 40 Yes 325mg Take 325 mg by mouth daily. [facility] aspirin 325 mg tablet 2-0 5-10 09:43: 40 Yes 325mg Take 325 mg by mouth daily. [facility] ketoconazol e 2 % shampoo 2-0 5-10 00:00: 00 Yes [id number] Apply to area(s) once daily as needed for Itching. [facility] ket[facility] % shampoo 2022-0 5-10 00:00: 00 Yes [id number] Apply to area(s) once daily as needed for Itching. [facility] ketoconazol e 2 % shampoo 2-0 5-10 00:00: 00 Yes [id number] Apply to area(s) once daily as needed for Itching. [facility] ketoconazol e 2 % shampoo 2-0 5-10 00:00: 00 Yes [id number] Apply to area(s) once daily as needed for Itching. [facility] ketoconazol e 2 % shampoo 2-0 5-10 00:00: 00 Yes [id number] Apply to area(s) once daily as needed for Itching. [facility] ketoconazol e 2 % shampoo 2022-0 5-10 00:00: 00 Yes [id number] Apply to area(s) once daily as needed for Itching. [facility] ketoconazol e 2 % shampoo 2022-0 5-10 00:00: 00 Yes [id number] Apply to area(s) once daily as needed for Itching. [facility] ketoconazol e 2 % shampoo 2022-0 5-10 00:00: 00 Yes [id number] Apply to area(s) once daily as needed for Itching. [facility] ketoconazol e 2 % shampoo 2022-0 5-10 00:00: 00 Yes [id number] Apply to area(s) once daily as needed for Itching. [facility] ketoconazol e 2 % shampoo 2022-0 5-10 00:00: 00 Yes [id number] Apply to area(s) once daily as needed for Itching. [facility] ketoconazol e 2 % shampoo 2022-0 5-10 00:00: 00 Yes [id number] Apply to area(s) once daily as needed for Itching. [facility] ketoconazol e 2 % shampoo 2022-0 5-10 00:00: 00 Yes [id number] Apply to area(s) once daily as needed for Itching. [facility] ketoconazol e 2 % shampoo 2022-0 5-10 00:00: 00 Yes [id number] Apply to area(s) once daily as needed for Itching. [facility] ketoconazol e 2 % shampoo 2022-0 5-10 00:00: 00 Yes [id number] Apply to area(s) once daily as needed for Itching. [facility] ketoconazol e 2 % shampoo 2022-0 5-10 00:00: 00 Yes [id number] Apply to area(s) once daily as needed for Itching. [facility] ketoconazol e 2 % shampoo 2022-0 5-10 00:00: 00 Yes [id number] Apply to area(s) once daily as needed for Itching. [facility] ketoconazol e 2 % shampoo 2022-0 5-10 00:00: 00 Yes [id number] Apply to area(s) once daily as needed for Itching. [facility] ketoconazol e 2 % shampoo 2022-0 5-10 00:00: 00 Yes [id number] Apply to area(s) once daily as needed for Itching. [facility] ketoconazol e 2 % shampoo 2022-0 5-10 00:00: 00 Yes [id number] Apply to area(s) once daily as needed for Itching. [facility] ketoconazol e 2 % shampoo 2022-0 5-10 00:00: 00 Yes [id number] Apply to area(s) once daily as needed for Itching. [facility] ketoconazol e 2 % shampoo 2022-0 5-10 00:00: 00 Yes [id number] Apply to area(s) once daily as needed for Itching. [facility] ketoconazol e 2 % shampoo 2022-0 5-10 00:00: 00 Yes [id number] Apply to area(s) once daily as needed for Itching. [facility] ketoconazol e 2 % shampoo 2022-0 5-10 00:00: 00 Yes [id number] Apply to area(s) once daily as needed for Itching. [facility] ketoconazol e 2 % shampoo 2022-0 5-10 00:00: 00 Yes [id number] Apply to area(s) once daily as needed for Itching. [facility] ketoconazol e 2 % shampoo 2022-0 5-10 00:00: 00 Yes [id number] Apply to area(s) once daily as needed for Itching. [facility] ketoconazol e 2 % shampoo 2022-0 5-10 00:00: 00 Yes [id number] Apply to area(s) once daily as needed for Itching. [facility] ketoconazol e 2 % shampoo 2022-0 5-10 00:00: 00 Yes [id number] Apply to area(s) once daily as needed for Itching. [facility] ketoconazol e 2 % shampoo 2022-0 5-10 00:00: 00 Yes [id number] Apply to area(s) once daily as needed for Itching. [facility] ketoconazol e 2 % shampoo 2022-0 5-10 00:00: 00 Yes [id number] Apply to area(s) once daily as needed for Itching. [facility] ketoconazol e 2 % shampoo 2022-0 5-10 00:00: 00 Yes [id number] Apply to area(s) once daily as needed for Itching. [facility] ketoconazol e 2 % shampoo 2022-0 5-10 00:00: 00 Yes [id number] Apply to area(s) once daily as needed for Itching. [facility] ketoconazol e 2 % shampoo 2022-0 5-10 00:00: 00 Yes [id number] Apply to area(s) once daily as needed for Itching. [facility] ketoconazol e 2 % shampoo 2022-0 5-10 00:00: 00 Yes [id number] Apply to area(s) once daily as needed for Itching. [facility] ketoconazol e 2 % shampoo 2022-0 5-10 00:00: 00 Yes [id number] Apply to area(s) once daily as needed for Itching. [facility] ketoconazol e 2 % shampoo 2022-0 5-10 00:00: 00 Yes [id number] Apply to area(s) once daily as needed for Itching. [facility] ketoconazol e 2 % shampoo 2022-0 5-10 00:00: 00 Yes [id number] Apply to area(s) once daily as needed for Itching. [facility] ketoconazol e 2 % shampoo 2022-0 5-10 00:00: 00 Yes [id number] Apply to area(s) once daily as needed for Itching. [facility] ketoconazol e 2 % shampoo 2022-0 5-10 00:00: 00 Yes [id number] Apply to area(s) once daily as needed for Itching. [facility] ketoconazol e 2 % shampoo 2022-0 5-10 00:00: 00 Yes [id number] Apply to area(s) once daily as needed for Itching. [facility] ketoconazol e 2 % shampoo 2022-0 5-10 00:00: 00 Yes [id number] Apply to area(s) once daily as needed for Itching. [facility] ketoconazol e 2 % shampoo 2022-0 5-10 00:00: 00 Yes [id number] Apply to area(s) once daily as needed for Itching. [facility] ketoconazol e 2 % shampoo 2022-0 5-10 00:00: 00 Yes [id number] Apply to area(s) once daily as needed for Itching. [facility] % shampoo 2022-0 5-10 00:00: 00 Yes [id number] Apply to area(s) once daily as needed for Itching. [facility] ketoconazol e 2 % shampoo 2022-0 5-10 00:00: 00 Yes [id number] Apply to area(s) once daily as needed for Itching. [facility] ketoconazol e 2 % shampoo 2022-0 5-10 00:00: 00 Yes [id number] Apply to area(s) once daily as needed for Itching. [facility] ketoconazol e 2 % shampoo 2022-0 5-10 00:00: 00 Yes [id number] Apply to area(s) once daily as needed for Itching. [facility] ketoconazol e 2 % shampoo 2022-0 5-10 00:00: 00 Yes [id number] Apply to area(s) once daily as needed for Itching. [facility] ketoconazol e 2 % shampoo 2022-0 5-10 00:00: 00 Yes [id number] Apply to area(s) once daily as needed for Itching. [facility] ketoconazol e 2 % shampoo 2022-0 5-10 00:00: 00 Yes [id number] Apply to area(s) once daily as needed for Itching. [facility] ketoconazol e 2 % shampoo 2022-0 5-10 00:00: 00 Yes [id number] Apply to area(s) once daily as needed for Itching. [facility] ketoconazol e 2 % shampoo 2022-0 5-10 00:00: 00 Yes [id number] Apply to area(s) once daily as needed for Itching. [facility] ketoconazol e 2 % shampoo 2022-0 5-10 00:00: 00 Yes [id number] Apply to area(s) once daily as needed for Itching. [facility] ketoconazol e 2 % shampoo 2022-0 5-10 00:00: 00 Yes [id number] Apply to area(s) once daily as needed for Itching. [facility] ketoconazol e 2 % shampoo 2022-0 5-10 00:00: 00 Yes [id number] Apply to area(s) once daily as needed for Itching. [facility] ketoconazol e 2 % shampoo 2022-0 5-10 00:00: 00 Yes [id number] Apply to area(s) once daily as needed for Itching. [facility] ketoconazol e 2 % shampoo 2022-0 5-10 00:00: 00 Yes [id number] Apply to area(s) once daily as needed for Itching. [facility] ketoconazol e 2 % shampoo 2022-0 5-10 00:00: 00 Yes [id number] Apply to area(s) once daily as needed for Itching. [facility] ketoconazol e 2 % shampoo 2022-0 5-10 00:00: 00 Yes [id number] Apply to area(s) once daily as needed for Itching. [facility] ketoconazol e 2 % shampoo 2022-0 5-10 00:00: 00 Yes [id number] Apply to area(s) once daily as needed for Itching. [facility] ketoconazol e 2 % shampoo 2022-0 5-10 00:00: 00 Yes [id number] Apply to area(s) once daily as needed for Itching. [facility] ketoconazol e 2 % shampoo 2022-0 5-10 00:00: 00 Yes [id number] Apply to area(s) once daily as needed for Itching. [facility] ketoconazol e 2 % shampoo 2022-0 5-10 00:00: 00 Yes [id number] Apply to area(s) once daily as needed for Itching. [facility] ketoconazol e 2 % shampoo 2022-0 5-10 00:00: 00 Yes [id number] Apply to area(s) once daily as needed for Itching. [facility] ketoconazol e 2 % shampoo 2022-0 5-10 00:00: 00 Yes [id number] Apply to area(s) once daily as needed for Itching. [facility] ketoconazol e 2 % shampoo 2022-0 5-10 00:00: 00 Yes [id number] Apply to area(s) once daily as needed for Itching. [facility] ketoconazol e 2 % shampoo 2022-0 5-10 00:00: 00 Yes [id number] Apply to area(s) once daily as needed for Itching. [facility] % shampoo 2022-0 5-10 00:00: 00 Yes [id number] Apply to area(s) once daily as needed for Itching. [facility] ketoconazol e 2 % shampoo 2022-0 5-10 00:00: 00 Yes [id number] Apply to area(s) once daily as needed for Itching. [facility] ketoconazol e 2 % shampoo 2022-0 5-10 00:00: 00 Yes [id number] Apply to area(s) once daily as needed for Itching. [facility] ketoconazol e 2 % shampoo 2022-0 5-10 00:00: 00 Yes [id number] Apply to area(s) once daily as needed for Itching. [facility] ketoconazol e 2 % shampoo 2022-0 5-10 00:00: 00 Yes [id number] Apply to area(s) once daily as needed for Itching. [facility] ketoconazol e 2 % shampoo 2022-0 5-10 00:00: 00 Yes [id number] Apply to area(s) once daily as needed for Itching. [facility] ketoconazol e 2 % shampoo 2022-0 5-10 00:00: 00 Yes [id number] Apply to area(s) once daily as needed for Itching. [facility] % shampoo 2022-0 5-10 00:00: 00 Yes [id number] Apply to area(s) once daily as needed for Itching. [facility] ketoconazol e 2 % shampoo 2022-0 5-10 00:00: 00 Yes [id number] Apply to area(s) once daily as needed for Itching. [facility] ket[facility] % shampoo 2022-0 5-10 00:00: 00 Yes [id number] Apply to area(s) once daily as needed for Itching. [facility] % shampoo 2022-0 5-10 00:00: 00 Yes [id number] Apply to area(s) once daily as needed for Itching. [facility] ketoconazol e 2 % shampoo 2022-0 5-10 00:00: 00 Yes [id number] Apply to area(s) once daily as needed for Itching. [facility] ketoconazol e 2 % shampoo 2022-0 5-10 00:00: 00 Yes [id number] Apply to area(s) once daily as needed for Itching. [facility] ketoconazol e 2 % shampoo 2022-0 5-10 00:00: 00 Yes [id number] Apply to area(s) once daily as needed for Itching. [facility] ketoconazol e 2 % shampoo 2022-0 5-10 00:00: 00 Yes [id number] Apply to area(s) once daily as needed for Itching. [facility] ketoconazol e 2 % shampoo 2022-0 5-10 00:00: 00 Yes [id number] Apply to area(s) once daily as needed for Itching. [facility] ketoconazol e 2 % shampoo 2022-0 5-10 00:00: 00 Yes [id number] Apply to area(s) once daily as needed for Itching. [facility] ketoconazol e 2 % shampoo 2022-0 5-10 00:00: 00 Yes [id number] Apply to area(s) once daily as needed for Itching. [facility] ketoconazol e 2 % shampoo 2022-0 5-10 00:00: 00 Yes [id number] Apply to area(s) once daily as needed for Itching. [facility] ketoconazol e 2 % shampoo 2022-0 5-10 00:00: 00 Yes [id number] Apply to area(s) once daily as needed for Itching. [facility] ketoconazol e 2 % shampoo 2022-0 5-10 00:00: 00 Yes [id number] Apply to area(s) once daily as needed for Itching. [facility] ketoconazol e 2 % shampoo 2022-0 5-10 00:00: 00 Yes [id number] Apply to area(s) once daily as needed for Itching. [facility] ketoconazol e 2 % shampoo 2022-0 5-10 00:00: 00 Yes [id number] Apply to area(s) once daily as needed for Itching. [facility] ketoconazol e 2 % shampoo 2022-0 5-10 00:00: 00 Yes [id number] Apply to area(s) once daily as needed for Itching. [facility] ketoconazol e 2 % shampoo 2022-0 5-10 00:00: 00 Yes [id number] Apply to area(s) once daily as needed for Itching. [facility] ketoconazol e 2 % shampoo 2022-0 5-10 00:00: 00 Yes [id number] Apply to area(s) once daily as needed for Itching. [facility] ketoconazol e 2 % shampoo 2022-0 5-10 00:00: 00 Yes [id number] Apply to area(s) once daily as needed for Itching. [facility] 2 % shampoo 2022-0 5-10 00:00: 00 Yes [id number] Apply to area(s) once daily as needed for Itching. [facility]0 [facility]-10 00:00: 00 Yes [id number] Apply to area(s) once daily as needed for Itching. [facility] % shampoo 2022-0 5-10 00:00: 00 Yes [id number] Apply to area(s) once daily as needed for Itching. [facility] % shampoo 2022-0 5-10 00:00: 00 Yes [id number] Apply to area(s) once daily as needed for Itching. [facility] % shampoo 2022-0 5-10 00:00: 00 Yes [id number] Apply to area(s) once daily as needed for Itching. [facility] % shampoo 2022-0 5-10 00:00: 00 Yes [id number] Apply to area(s) once daily as needed for Itching. [facility] ketoconazol e 2 % shampoo 2022-0 5-10 00:00: 00 Yes [id number] Apply to area(s) once daily as needed for Itching. [facility] ketoconazol e 2 % shampoo 2022-0 5-10 00:00: 00 Yes [id number] Apply to area(s) once daily as needed for Itching. [facility] ketoconazol e 2 % shampoo 2022-0 5-10 00:00: 00 Yes [id number] Apply to area(s) once daily as needed for Itching. [facility] % shampoo 2022-0 5-10 00:00: 00 Yes [id number] Apply to area(s) once daily as needed for Itching. [facility] ket[facility] 2 % shampoo 2022-0 5-10 00:00: 00 Yes [id number] Apply to area(s) once daily as needed for Itching. [facility] % shampoo 2022-0 5-10 00:00: 00 Yes [id number] Apply to area(s) once daily as needed for Itching. [facility] ketoconazol e 2 % shampoo 2022-0 5-10 00:00: 00 Yes [id number] Apply to area(s) once daily as needed for Itching. [facility] ketoconazol e 2 % shampoo 2022-0 5-10 00:00: 00 Yes [id number] Apply to area(s) once daily as needed for Itching. [facility] ketoconazol e 2 % shampoo 2022-0 5-10 00:00: 00 Yes [id number] Apply to area(s) once daily as needed for Itching. [facility] ketoconazol e 2 % shampoo 2022-0 5-10 00:00: 00 Yes [id number] Apply to area(s) once daily as needed for Itching. [facility] ketoconazol e 2 % shampoo 2022-0 5-10 00:00: 00 Yes [id number] Apply to area(s) once daily as needed for Itching. [facility] % shampoo 2022-0 5-10 00:00: 00 Yes [id number] Apply to area(s) once daily as needed for Itching. [facility] % shampoo 2022-0 5-10 00:00: 00 Yes [id number] Apply to area(s) once daily as needed for Itching. [facility] ketoconazol e 2 % shampoo 2022-0 5-10 00:00: 00 Yes [id number] Apply to area(s) once daily as needed for Itching. [facility] ketoconazol e 2 % shampoo 2022-0 5-10 00:00: 00 Yes [id number] Apply to area(s) once daily as needed for Itching. [facility] % shampoo 2022-0 5-10 00:00: 00 Yes [id number] Apply to area(s) once daily as needed for Itching. [facility] ketoconazol e 2 % shampoo 2022-0 5-10 00:00: 00 Yes [id number] Apply to area(s) once daily as needed for Itching. [facility] ketoconazol e 2 % shampoo 2022-0 5-10 00:00: 00 Yes [id number] Apply to area(s) once daily as needed for Itching. [facility] ketoconazol e 2 % shampoo 2022-0 5-10 00:00: 00 Yes [id number] Apply to area(s) once daily as needed for Itching. [facility] ketoconazol e 2 % shampoo 2022-0 5-10 00:00: 00 Yes [id number] Apply to area(s) once daily as needed for Itching. [facility] ketoconazol e 2 % shampoo 2022-0 5-10 00:00: 00 Yes [id number] Apply to area(s) once daily as needed for Itching. [facility] ketoconazol e 2 % shampoo 2022-0 5-10 00:00: 00 Yes [id number] Apply to area(s) once daily as needed for Itching. [facility] ketoconazol e 2 % shampoo 2022-0 5-10 00:00: 00 Yes [id number] Apply to area(s) once daily as needed for Itching. [facility] ketoconazol e 2 % shampoo 2022-0 5-10 00:00: 00 Yes [id number] Apply to area(s) once daily as needed for Itching. [facility] ketoconazol e 2 % shampoo 2022-0 5-10 00:00: 00 Yes [id number] Apply to area(s) once daily as needed for Itching. [facility] ketoconazol e 2 % shampoo 2022-0 5-10 00:00: 00 Yes [id number] Apply to area(s) once daily as needed for Itching. [facility] ketoconazol e 2 % shampoo 2022-0 5-10 00:00: 00 Yes [id number] Apply to area(s) once daily as needed for Itching. [facility] % shampoo 2022-0 5-10 00:00: 00 Yes [id number] Apply to area(s) once daily as needed for Itching. [facility] ketoconazol e 2 % shampoo 2022-0 5-10 00:00: 00 Yes [id number] Apply to area(s) once daily as needed for Itching. [facility] 2 % shampoo 2022-0 5-10 00:00: 00 Yes [id number] Apply to area(s) once daily as needed for Itching. [facility] ketoconazol e 2 % shampoo 2022-0 5-10 00:00: 00 Yes [id number] Apply to area(s) once daily as needed for Itching. [facility] ketoconazol e 2 % shampoo 2022-0 5-10 00:00: 00 Yes [id number] Apply to area(s) once daily as needed for Itching. [facility] ketoconazol e 2 % shampoo 2022-0 5-10 00:00: 00 Yes [id number] Apply to area(s) once daily as needed for Itching. [facility] ketoconazol e 2 % shampoo 2022-0 5-10 00:00: 00 Yes [id number] Apply to area(s) once daily as needed for Itching. [facility] ketoconazol e 2 % shampoo 2022-0 5-10 00:00: 00 Yes [id number] Apply to area(s) once daily as needed for Itching. [facility] ketoconazol e 2 % shampoo 2022-0 5-10 00:00: 00 Yes [id number] Apply to area(s) once daily as needed for Itching. [facility] ketoconazol e 2 % shampoo 2022-0 5-10 00:00: 00 Yes [id number] Apply to area(s) once daily as needed for Itching. [facility] ketoconazol e 2 % shampoo 2022-0 5-10 00:00: 00 Yes [id number] Apply to area(s) once daily as needed for Itching. [facility] ketoconazol e 2 % shampoo 2022-0 5-10 00:00: 00 Yes [id number] Apply to area(s) once daily as needed for Itching. [facility] ketoconazol e 2 % shampoo 2022-0 5-10 00:00: 00 Yes [id number] Apply to area(s) once daily as needed for Itching. [facility] ketoconazol e 2 % shampoo 2022-0 5-10 00:00: 00 Yes [id number] Apply to area(s) once daily as needed for Itching. [facility] ketoconazol e 2 % shampoo 2022-0 5-10 00:00: 00 Yes [id number] Apply to area(s) once daily as needed for Itching. [facility] ketoconazol e 2 % shampoo 2022-0 5-10 00:00: 00 Yes [id number] Apply to area(s) once daily as needed for Itching. [facility] ketoconazol e 2 % shampoo 2022-0 5-10 00:00: 00 Yes [id number] Apply to area(s) once daily as needed for Itching. [facility] ketoconazol e 2 % shampoo 2022-0 5-10 00:00: 00 Yes [id number] Apply to area(s) once daily as needed for Itching. [facility] ketoconazol e 2 % shampoo 2022-0 5-10 00:00: 00 Yes [id number] Apply to area(s) once daily as needed for Itching. [facility] ketoconazol e 2 % shampoo 2022-0 5-10 00:00: 00 Yes [id number] Apply to area(s) once daily as needed for Itching. [facility] ketoconazol e 2 % shampoo 2022-0 5-10 00:00: 00 Yes [id number] Apply to area(s) once daily as needed for Itching. [facility] ketoconazol e 2 % shampoo 2022-0 5-10 00:00: 00 Yes [id number] Apply to area(s) once daily as needed for Itching. [facility] ketoconazol e 2 % shampoo 2022-0 5-10 00:00: 00 Yes [id number] Apply to area(s) once daily as needed for Itching. [facility] ketoconazol e 2 % shampoo 2022-0 5-10 00:00: 00 Yes [id number] Apply to area(s) once daily as needed for Itching. [facility] ketoconazol e 2 % shampoo 2022-0 5-10 00:00: 00 Yes [id number] Apply to area(s) once daily as needed for Itching. [facility] ketoconazol e 2 % shampoo 2022-0 5-10 00:00: 00 Yes [id number] Apply to area(s) once daily as needed for Itching. [facility] ketoconazol e 2 % shampoo 2022-0 5-10 00:00: 00 Yes [id number] Apply to area(s) once daily as needed for Itching. [facility] ketoconazol e 2 % shampoo 2022-0 5-10 00:00: 00 Yes [id number] Apply to area(s) once daily as needed for Itching. [facility] ketoconazol e 2 % shampoo 2022-0 5-10 00:00: 00 Yes [id number] Apply to area(s) once daily as needed for Itching. [facility] ketoconazol e 2 % shampoo 2022-0 5-10 00:00: 00 Yes [id number] Apply to area(s) once daily as needed for Itching. [facility] ketoconazol e 2 % shampoo 2022-0 5-10 00:00: 00 Yes [id number] Apply to area(s) once daily as needed for Itching. [facility] ketoconazol e 2 % shampoo 2022-0 5-10 00:00: 00 Yes [id number] Apply to area(s) once daily as needed for Itching. [facility] ketoconazol e 2 % shampoo 2022-0 5-10 00:00: 00 Yes [id number] Apply to area(s) once daily as needed for Itching. [facility] ketoconazol e 2 % shampoo 2022-0 5-10 00:00: 00 Yes [id number] Apply to area(s) once daily as needed for Itching. [facility] ketoconazol e 2 % shampoo 2022-0 5-10 00:00: 00 Yes [id number] Apply to area(s) once daily as needed for Itching. [facility] ketoconazol e 2 % shampoo 2022-0 5-10 00:00: 00 Yes [id number] Apply to area(s) once daily as needed for Itching. [facility] ketoconazol e 2 % shampoo 2022-0 5-10 00:00: 00 Yes [id number] Apply to area(s) once daily as needed for Itching. [facility] ketoconazol e 2 % shampoo 2022-0 5-10 00:00: 00 Yes [id number] Apply to area(s) once daily as needed for Itching. [facility] ketoconazol e 2 % shampoo 2022-0 5-10 00:00: 00 Yes [id number] Apply to area(s) once daily as needed for Itching. [facility] ketoconazol e 2 % shampoo 2022-0 5-10 00:00: 00 Yes [id number] Apply to area(s) once daily as needed for Itching. [facility] ket[facility] e 2 % shampoo 2022-0 5-10 00:00: 00 Yes [id number] Apply to area(s) once daily as needed for Itching. [facility] ketoconazol e 2 % shampoo 2022-0 5-10 00:00: 00 Yes [id number] Apply to area(s) once daily as needed for Itching. [facility] ketoconazol e 2 % shampoo 2022-0 5-10 00:00: 00 Yes [id number] Apply to area(s) once daily as needed for Itching. [facility] ketoconazol e 2 % shampoo 2022-0 5-10 00:00: 00 Yes [id number] Apply to area(s) once daily as needed for Itching. [facility] ketoconazol e 2 % shampoo 2022-0 5-10 00:00: 00 Yes [id number] Apply to area(s) once daily as needed for Itching. [facility] ketoconazol e 2 % shampoo 2022-0 5-10 00:00: 00 Yes [id number] Apply to area(s) once daily as needed for Itching. [facility] ketoconazol e 2 % shampoo 2022-0 5-10 00:00: 00 Yes [id number] Apply to area(s) once daily as needed for Itching. [facility] ketoconazol e 2 % shampoo 2022-0 5-10 00:00: 00 Yes [id number] Apply to area(s) once daily as needed for Itching. [facility] ketoconazol e 2 % shampoo 2022-0 5-10 00:00: 00 Yes [id number] Apply to area(s) once daily as needed for Itching. [facility] ketoconazol e 2 % shampoo 2022-0 5-10 00:00: 00 Yes [id number] Apply to area(s) once daily as needed for Itching. [facility] ketoconazol e 2 % shampoo 2022-0 5-10 00:00: 00 Yes [id number] Apply to area(s) once daily as needed for Itching. [facility] ketoconazol e 2 % shampoo 2022-0 5-10 00:00: 00 Yes [id number] Apply to area(s) once daily as needed for Itching. [facility] ketoconazol e 2 % shampoo 2022-0 5-10 00:00: 00 Yes [id number] Apply to area(s) once daily as needed for Itching. [facility] ketoconazol e 2 % shampoo 2022-0 5-10 00:00: 00 Yes [id number] Apply to area(s) once daily as needed for Itching. [facility] ketoconazol e 2 % shampoo 2022-0 5-10 00:00: 00 Yes [id number] Apply to area(s) once daily as needed for Itching. [facility] ketoconazol e 2 % shampoo 2022-0 5-10 00:00: 00 Yes [id number] Apply to area(s) once daily as needed for Itching. [facility] ketoconazol e 2 % shampoo 2022-0 5-10 00:00: 00 Yes [id number] Apply to area(s) once daily as needed for Itching. [facility] % shampoo 2022-0 5-10 00:00: 00 Yes [id number] Apply to area(s) once daily as needed for Itching. [facility] ketoconazol e 2 % shampoo 2022-0 5-10 00:00: 00 Yes [id number] Apply to area(s) once daily as needed for Itching. [facility] ketoconazol e 2 % shampoo 2022-0 5-10 00:00: 00 Yes [id number] Apply to area(s) once daily as needed for Itching. [facility] ketoconazol e 2 % shampoo 2022-0 5-10 00:00: 00 Yes [id number] Apply to area(s) once daily as needed for Itching. [facility] ketoconazol e 2 % shampoo 2022-0 5-10 00:00: 00 Yes [id number] Apply to area(s) once daily as needed for Itching. [facility] ketoconazol e 2 % shampoo 2022-0 5-10 00:00: 00 Yes [id number] Apply to area(s) once daily as needed for Itching. [facility] ketoconazol e 2 % shampoo 2022-0 5-10 00:00: 00 Yes [id number] Apply to area(s) once daily as needed for Itching. [facility] ketoconazol e 2 % shampoo 2022-0 5-10 00:00: 00 Yes [id number] Apply to area(s) once daily as needed for Itching. [facility] ketoconazol e 2 % shampoo 2022-0 5-10 00:00: 00 Yes [id number] Apply to area(s) once daily as needed for Itching. [facility] 2022-0 5-10 00:00: 00 Yes [id number] Apply to area(s) once daily as needed for Itching. [facility] ketoconazol e 2 % shampoo 2022-0 5-10 00:00: 00 Yes [id number] Apply to area(s) once daily as needed for Itching. [facility] % shampoo 2022-0 5-10 00:00: 00 Yes [id number] Apply to area(s) once daily as needed for Itching. [facility] 2 % shampoo 2022-0 5-10 00:00: 00 Yes [id number] Apply to area(s) once daily as needed for Itching. [facility] ketoconazol e 2 % shampoo 2022-0 5-10 00:00: 00 Yes [id number] Apply to area(s) once daily as needed for Itching. [facility] % shampoo 2022-0 5-10 00:00: 00 Yes [id number] Apply to area(s) once daily as needed for Itching. [facility] ketoconazol e 2 % shampoo 2022-0 5-10 00:00: 00 Yes [id number] Apply to area(s) once daily as needed for Itching. [facility] 2 % shampoo 2022-0 5-10 00:00: 00 Yes [id number] Apply to area(s) once daily as needed for Itching. [facility] ketoconazol e 2 % shampoo 2022-0 5-10 00:00: 00 Yes [id number] Apply to area(s) once daily as needed for Itching. [facility] 2 % shampoo 2022-0 5-10 00:00: 00 Yes [id number] Apply to area(s) once daily as needed for Itching. [facility] ketoconazol e 2 % shampoo 2022-0 5-10 00:00: 00 Yes [id number] Apply to area(s) once daily as needed for Itching. [facility] ketoconazol e 2 % shampoo 2022-0 5-10 00:00: 00 Yes [id number] Apply to area(s) once daily as needed for Itching. [facility] ketoconazol e 2 % shampoo 2022-0 5-10 00:00: 00 Yes [id number] Apply to area(s) once daily as needed for Itching. [facility] ketoconazol e 2 % shampoo 2022-0 5-10 00:00: 00 Yes [id number] Apply to area(s) once daily as needed for Itching. [facility] ketoconazol e 2 % shampoo 2022-0 5-10 00:00: 00 Yes [id number] Apply to area(s) once daily as needed for Itching. [facility] ketoconazol e 2 % shampoo 2022-0 5-10 00:00: 00 Yes [id number] Apply to area(s) once daily as needed for Itching. [facility] ketoconazol e 2 % shampoo 2022-0 5-10 00:00: 00 Yes [id number] Apply to area(s) once daily as needed for Itching. [facility] ketoconazol e 2 % shampoo 2022-0 5-10 00:00: 00 Yes [id number] Apply to area(s) once daily as needed for Itching. [facility] ketoconazol e 2 % shampoo 2022-0 5-10 00:00: 00 Yes [id number] Apply to area(s) once daily as needed for Itching. [facility] ketoconazol e 2 % shampoo 2022-0 5-10 00:00: 00 Yes [id number] Apply to area(s) once daily as needed for Itching. [facility] ketoconazol e 2 % shampoo 2022-0 5-10 00:00: 00 Yes [id number] Apply to area(s) once daily as needed for Itching. [facility] ketoconazol e 2 % shampoo 2022-0 5-10 00:00: 00 Yes [id number] Apply to area(s) once daily as needed for Itching. [facility] ketoconazol e 2 % shampoo 2022-0 5-10 00:00: 00 Yes [id number] Apply to area(s) once daily as needed for Itching. [facility] ketoconazol e 2 % shampoo 2022-0 5-10 00:00: 00 Yes [id number] Apply to area(s) once daily as needed for Itching. [facility] ketoconazol e 2 % shampoo 2022-0 5-10 00:00: 00 Yes [id number] Apply to area(s) once daily as needed for Itching. [facility] ketoconazol e 2 % shampoo 2022-0 5-10 00:00: 00 Yes [id number] Apply to area(s) once daily as needed for Itching. [facility] ketoconazol e 2 % shampoo 2022-0 5-10 00:00: 00 Yes [id number] Apply to area(s) once daily as needed for Itching. [facility] % shampoo 2022-0 5-10 00:00: 00 Yes [id number] Apply to area(s) once daily as needed for Itching. [facility] e 2 % shampoo 2022-0 5-10 00:00: 00 Yes [id number] Apply to area(s) once daily as needed for Itching. [facility] ketocon[facility] 2 % shampoo 2022-0 5-10 00:00: 00 Yes [id number] Apply to area(s) once daily as needed for Itching. [facility]oconazol e 2 % shampoo 2022-0 5-10 00:00: 00 Yes [id number] Apply to area(s) once daily as needed for Itching. [facility] e 2 % shampoo 2022-0 5-10 00:00: 00 Yes [id number] Apply to area(s) once daily as needed for Itching. [facility] e 2 % shampoo 2022-0 5-10 00:00: 00 Yes [id number] Apply to area(s) once daily as needed for Itching. [facility] e 2 % shampoo 2022-0 5-10 00:00: 00 Yes [id number] Apply to area(s) once daily as needed for Itching. [facility] e 2 % shampoo 2022-0 5-10 00:00: 00 Yes [id number] Apply to area(s) once daily as needed for Itching. [facility] ketoconazol e 2 % shampoo 2022-0 5-10 00:00: 00 Yes [id number] Apply to area(s) once daily as needed for Itching. [facility] % shampoo 2022-0 5-10 00:00: 00 Yes [id number] Apply to area(s) once daily as needed for Itching. [facility] % shampoo 2022-0 5-10 00:00: 00 Yes [id number] Apply to area(s) once daily as needed for Itching. [facility]-0 5-10 00:00: 00 Yes [id number] Apply to area(s) once daily as needed for Itching. [facility] ket[facility] % shampoo 2022-0 5-10 00:00: 00 Yes [id number] Apply to area(s) once daily as needed for Itching. [facility] ketoconazol e 2 % shampoo 2022-0 5-10 00:00: 00 Yes [id number] Apply to area(s) once daily as needed for Itching. [facility] ketoconazol e 2 % shampoo 2-0 5-10 00:00: 00 Yes [id number] Apply to area(s) once daily as needed for Itching. [facility] % shampoo 2022-0 5-10 00:00: 00 Yes [id number] Apply to area(s) once daily as needed for Itching. [facility] ket[facility] % shampoo 2022-0 5-10 00:00: 00 Yes [id number] Apply to area(s) once daily as needed for Itching. [facility] ketoconazol e 2 % shampoo 2-0 5-10 00:00: 00 Yes [id number] Apply to area(s) once daily as needed for Itching. [facility] ket[facility] % shampoo 2-0 5-10 00:00: 00 Yes [id number] Apply to area(s) once daily as needed for Itching. [facility] ket[facility]azol e [facility] % shampoo 2-0 5-10 00:00: 00 Yes [id number] Apply to area(s) once daily as needed for Itching. [facility] ketoconazol e 2 % shampoo 2-0 5-10 00:00: 00 Yes [id number] Apply to area(s) once daily as needed for Itching. [facility] METFORMIN 850 mg tablet 2021-0 02 00:00: 00 Yes [id number] TAKE 1 TABLET BY MOUTH THREE TIMES DAILY [facility] METFORMIN 850 mg tablet 2021-0 - 00:00: 00 Yes [id number] TAKE 1 TABLET BY MOUTH THREE TIMES DAILY [facility] METFORMIN 850 mg tablet 2021-0 -02 00:00: 00 Yes [id number] TAKE 1 TABLET BY MOUTH THREE TIMES DAILY [facility] METFORMIN 850 mg tablet 2021-0 - 00:00: 00 Yes [id number] TAKE 1 TABLET BY MOUTH THREE TIMES DAILY [facility] METFORMIN 850 mg tablet 0 12-02 00:00: 00 Yes [id number] TAKE 1 TABLET BY MOUTH THREE TIMES DAILY [facility] METFORMIN 850 mg tablet 12-02 00:00: 00 Yes [id number] TAKE 1 TABLET BY MOUTH THREE TIMES DAILY [facility] METFORMIN 850 mg tablet 12-02 00:00: 00 Yes [id number] TAKE 1 TABLET BY MOUTH THREE TIMES DAILY [facility] METFORMIN 850 mg tablet 12-02 00:00: 00 Yes [id number] TAKE 1 TABLET BY MOUTH THREE TIMES DAILY [facility] METFORMIN 850 mg tablet 12-02 00:00: 00 Yes [id number] TAKE 1 TABLET BY MOUTH THREE TIMES DAILY [facility] METFORMIN 850 mg tablet 12-02 00:00: 00 Yes [id number] TAKE 1 TABLET BY MOUTH THREE TIMES DAILY [facility] METFORMIN 850 mg tablet 12-02 00:00: 00 Yes [id number] TAKE 1 TABLET BY MOUTH THREE TIMES DAILY [facility] METFORMIN 850 mg tablet 12-02 00:00: 00 Yes [id number] TAKE 1 TABLET BY MOUTH THREE TIMES DAILY [facility] METFORMIN 850 mg tablet 12-02 00:00: 00 Yes [id number] TAKE 1 TABLET BY MOUTH THREE TIMES DAILY [facility] METFORMIN 850 mg tablet 12-02 00:00: 00 Yes [id number] TAKE 1 TABLET BY MOUTH THREE TIMES DAILY [facility] METFORMIN 850 mg tablet 12-02 00:00: 00 Yes [id number] TAKE 1 TABLET BY MOUTH THREE TIMES DAILY [facility] METFORMIN 850 mg tablet 12-02 00:00: 00 Yes [id number] TAKE 1 TABLET BY MOUTH THREE TIMES DAILY [facility] METFORMIN 850 mg tablet 12-02 00:00: 00 Yes [id number] TAKE 1 TABLET BY MOUTH THREE TIMES DAILY [facility] METFORMIN 850 mg tablet 12-02 00:00: 00 Yes [id number] TAKE 1 TABLET BY MOUTH THREE TIMES DAILY [facility] METFORMIN 850 mg tablet 0 12-02 00:00: 00 Yes [id number] TAKE 1 TABLET BY MOUTH THREE TIMES DAILY [facility] METFORMIN 850 mg tablet 0 12-02 00:00: 00 Yes [id number] TAKE 1 TABLET BY MOUTH THREE TIMES DAILY [facility] METFORMIN 850 mg tablet 0 12-02 00:00: 00 05-23 00:00 :00 No [id number] TAKE 1 TABLET BY MOUTH THREE TIMES DAILY [facility] METFORMIN 850 mg tablet 0 12-02 00:00: 00 05-23 00:00 :00 No [id number] TAKE 1 TABLET BY MOUTH THREE TIMES DA[facility] MET[facility]MIN 850 mg tablet 12-02 00:00: 00 05-23 00:00 :00 No [id number] TAKE 1 TABLET BY MOUTH THREE TIMES DAILY [facility] METFORMIN 850 mg tablet 0 12-02 00:00: 00 05-23 00:00 :00 No [id number] TAKE 1 TABLET BY MOUTH THREE TIMES DAILY [facility] lancets 33 gauge Misc 2021-0 4-25 00:00: 00 Yes Use as directed twice a day for E11.9 [facility] lancets 33 gauge Misc 2-0 4-25 00:00: 00 Yes Use as directed twice a day for E11.9 [facility] lancets 33 gauge Misc 2-0 4-25 00:00: 00 Yes Use as directed twice a day for E11.9 [facility] lancets 33 gauge Misc 2-0 4-25 00:00: 00 Yes Use as directed twice a day for E11.9 [facility] lancets 33 gauge Misc 2-0 4-25 00:00: 00 Yes Use as directed twice a day for E11.9 [facility] lancets 33 gauge Misc 2-0 4-25 00:00: 00 Yes Use as directed twice a day for E11.9 [facility] lancets 33 gauge Misc 2022-0 4-25 00:00: 00 Yes Use as directed twice a day for E11.9 [facility] lancets 33 gauge Misc 2022-0 4-25 00:00: 00 Yes Use as directed twice a day for E11.9 [facility] lancets 33 gauge Misc 2022-0 4-25 00:00: 00 Yes Use as directed twice a day for E11.9 [facility] lancets 33 gauge Misc 2022-0 4-25 00:00: 00 Yes Use as directed twice a day for E11.9 [facility] lancets 33 gauge Misc 2022-0 4-25 00:00: 00 Yes Use as directed twice a day for E11.9 [facility] lancets 33 gauge Misc 2022-0 4-25 00:00: 00 Yes Use as directed twice a day for E11.9 [facility] lancets 33 gauge Misc 2022-0 4-25 00:00: 00 Yes Use as directed twice a day for E11.9 [facility] lancets 33 gauge Misc 2022-0 4-25 00:00: 00 Yes Use as directed twice a day for E11.9 [facility] lancets 33 gauge Misc 2022-0 4-25 00:00: 00 Yes Use as directed twice a day for E11.9 [facility] lancets 33 gauge Misc 2022-0 4-25 00:00: 00 Yes Use as directed twice a day for E11.9 [facility] lancets 33 gauge Misc 2022-0 4-25 00:00: 00 Yes Use as directed twice a day for E11.9 [facility] lancets 33 gauge Misc 2022-0 4-25 00:00: 00 Yes Use as directed twice a day for E11.9 [facility] lancets 33 gauge Misc 2022-0 4-25 00:00: 00 Yes Use as directed twice a day for E11.9 [facility] lancets 33 gauge Misc 2022-0 4-25 00:00: 00 Yes Use as directed twice a day for E11.9 [facility] lancets 33 gauge Misc 2022-0 4-25 00:00: 00 Yes Use as directed twice a day for E11.9 [facility] lancets 33 gauge Misc 2022-0 4-25 00:00: 00 Yes Use as directed twice a day for E11.9 [facility] lancets 33 gauge Misc 2022-0 4-25 00:00: 00 Yes Use as directed twice a day for E11.9 [facility] lancets 33 gauge Misc 2022-0 4-25 00:00: 00 Yes Use as directed twice a day for E11.9 [facility] lancets 33 gauge Misc 2022-0 4-25 00:00: 00 Yes Use as directed twice a day for E11.9 [facility] lancets 33 gauge Misc 2022-0 -25 00:00: 00 Yes Use as directed twice a day for E11.9 [facility] lancets 33 gauge Misc 2022-0 4-25 00:00: 00 Yes Use as directed twice a day for E11.9 [facility] lancets 33 gauge Misc 2022-0 4-25 00:00: 00 Yes Use as directed twice a day for E11.9 [facility] lancets 33 gauge Misc 2022-0 4-25 00:00: 00 Yes Use as directed twice a day for E11.9 [facility] lancets 33 gauge Misc 2022-0 4-25 00:00: 00 Yes Use as directed twice a day for E11.9 [facility] lancets 33 gauge Misc 2022-0 4-25 00:00: 00 Yes Use as directed twice a day for E11.9 [facility] lancets 33 gauge Misc 2022-0 4-25 00:00: 00 Yes Use as directed twice a day for E11.9 [facility] lancets 33 gauge Misc 2022-0 4-25 00:00: 00 Yes Use as directed twice a day for E11.9 [facility] lancets 33 gauge Misc 2022-0 4-25 00:00: 00 Yes Use as directed twice a day for E11.9 [facility] lancets 33 gauge Misc 2022-0 4-25 00:00: 00 Yes Use as directed twice a day for E11.9 [facility] lancets 33 gauge Misc 2022-0 4-25 00:00: 00 Yes Use as directed twice a day for E11.9 [facility] lancets 33 gauge Misc 2022-0 4-25 00:00: 00 Yes Use as directed twice a day for E11.9 [facility] lancets 33 gauge Misc 2022-0 4-25 00:00: 00 Yes Use as directed twice a day for E11.9 [facility] lancets 33 gauge Misc 2022-0 4-25 00:00: 00 Yes Use as directed twice a day for E11.9 [facility] lancets 33 gauge Misc 2022-0 4-25 00:00: 00 Yes Use as directed twice a day for E11.9 [facility] lancets 33 gauge Misc 2022-0 4-25 00:00: 00 Yes Use as directed twice a day for E11.9 [facility] lancets 33 gauge Misc 2022-0 4-25 00:00: 00 Yes Use as directed twice a day for E11.9 [facility] lancets 33 gauge Misc 2022-0 4-25 00:00: 00 Yes Use as directed twice a day for E11.9 [facility] lancets 33 gauge Misc 2022-0 4-25 00:00: 00 Yes Use as directed twice a day for E11.9 [facility] lancets 33 gauge Misc 2022-0 4-25 00:00: 00 Yes Use as directed twice a day for E11.9 [facility] lancets 33 gauge Misc 2022-0 4-25 00:00: 00 Yes Use as directed twice a day for E11.9 [facility] lancets 33 gauge Misc 2022-0 4-25 00:00: 00 Yes Use as directed twice a day for E11.9 [facility] lancets 33 gauge Misc 2022-0 4-25 00:00: 00 Yes Use as directed twice a day for E11.9 [facility] lancets 33 gauge Misc 2022-0 4-25 00:00: 00 Yes Use as directed twice a day for E11.9 [facility] lancets 33 gauge Misc 2022-0 4-25 00:00: 00 Yes Use as directed twice a day for E11.9 [facility] lancets 33 gauge Misc 2022-0 4-25 00:00: 00 Yes Use as directed twice a day for E11.9 [facility] lancets 33 gauge Misc 2022-0 4-25 00:00: 00 Yes Use as directed twice a day for E11.9 [facility] lancets 33 gauge Misc 2022-0 4-25 00:00: 00 Yes Use as directed twice a day for E11.9 [facility] lancets 33 gauge Misc 2022-0 4-25 00:00: 00 Yes Use as directed twice a day for E11.9 [facility] lancets 33 gauge Misc 2022-0 4-25 00:00: 00 Yes Use as directed twice a day for E11.9 [facility] lancets 33 gauge Misc 2022-0 4-25 00:00: 00 Yes Use as directed twice a day for E11.9 [facility] lancets 33 gauge Misc 2022-0 4-25 00:00: 00 Yes Use as directed twice a day for E11.9 [facility] lancets 33 gauge Misc 2022-0 4-25 00:00: 00 Yes Use as directed twice a day for E11.9 [facility] lancets 33 gauge Misc 2022-0 4-25 00:00: 00 Yes Use as directed twice a day for E11.9 [facility] lancets 33 gauge Misc 2022-0 4-25 00:00: 00 Yes Use as directed twice a day for E11.9 [facility] lancets 33 gauge Misc 2022-0 4-25 00:00: 00 Yes Use as directed twice a day for E11.9 [facility] lancets 33 gauge Misc 2022-0 4-25 00:00: 00 Yes Use as directed twice a day for E11.9 [facility] lancets 33 gauge Misc 2022-0 4-25 00:00: 00 Yes Use as directed twice a day for E11.9 [facility] lancets 33 gauge Misc 2022-0 4-25 00:00: 00 Yes Use as directed twice a day for E11.9 [facility] lancets 33 gauge Misc 2022-0 4-25 00:00: 00 Yes Use as directed twice a day for E11.9 [facility] lancets 33 gauge Misc 2022-0 4-25 00:00: 00 Yes Use as directed twice a day for E11.9 [facility] lancets 33 gauge Misc 2022-0 4-25 00:00: 00 Yes Use as directed twice a day for E11.9 [facility] lancets 33 gauge Misc 2022-0 4-25 00:00: 00 Yes Use as directed twice a day for E11.9 [facility] lancets 33 gauge Misc 2022-0 4-25 00:00: 00 Yes Use as directed twice a day for E11.9 [facility] lancets 33 gauge Misc 2022-0 4-25 00:00: 00 Yes Use as directed twice a day for E11.9 [facility] lancets 33 gauge Misc 2022-0 4-25 00:00: 00 Yes Use as directed twice a day for E11.9 [facility] lancets 33 gauge Misc 2022-0 4-25 00:00: 00 Yes Use as directed twice a day for E11.9 [facility] lancets 33 gauge Misc 2022-0 4-25 00:00: 00 Yes Use as directed twice a day for E11.9 [facility] lancets 33 gauge Misc 2022-0 4-25 00:00: 00 Yes Use as directed twice a day for E11.9 [facility] lancets 33 gauge Misc 2022-0 4-25 00:00: 00 Yes Use as directed twice a day for E11.9 [facility] lancets 33 gauge Misc 2022-0 4-25 00:00: 00 Yes Use as directed twice a day for E11.9 [facility] lancets 33 gauge Misc 2-0 4-25 00:00: 00 Yes Use as directed twice a day for E11.9 [facility] lancets 33 gauge Misc 2-0 4-25 00:00: 00 Yes Use as directed twice a day for E11.9 [facility] lancets 33 gauge Misc 2-0 4-25 00:00: 00 Yes Use as directed twice a day for E11.9 [facility] lancets 33 gauge Misc 2022-0 4-25 00:00: 00 Yes Use as directed twice a day for E11.9 [facility] lancets 33 gauge Misc 2-0 4-25 00:00: 00 Yes Use as directed twice a day for E11.9 [facility] lancets 33 gauge Misc 2-0 4-25 00:00: 00 Yes Use as directed twice a day for E11.9 [facility] lancets 33 gauge Misc 2-0 4-25 00:00: 00 Yes Use as directed twice a day for E11.9 [facility] lancets 33 gauge Misc 2-0 4-25 00:00: 00 Yes Use as directed twice a day for E11.9 [facility] lancets 33 gauge Misc 2-0 4-25 00:00: 00 09-02 00:00 :00 No Use as directed twice a day for E11.9 [facility] gabapentin 300 mg capsule 2021-0 4-11 00:00: 00 Yes [id number] TAKE 1 CAPSULE BY MOUTH FOUR TIMES DAILY [facility] gabapentin 300 mg capsule 2-0 4-11 00:00: 00 Yes [id number] TAKE 1 CAPSULE BY MOUTH FOUR TIMES DAILY [facility] gabapentin 300 mg capsule 2-0 4-11 00:00: 00 Yes [id number] TAKE 1 CAPSULE BY MOUTH FOUR TIMES DAILY [facility] gabapentin 300 mg capsule 2-0 4-11 00:00: 00 Yes [id number] TAKE 1 CAPSULE BY MOUTH FOUR TIMES DAILY [facility] gabapentin 300 mg capsule 2021-0 4-11 00:00: 00 Yes [id number] TAKE 1 CAPSULE BY MOUTH FOUR TIMES DAILY [facility] gabapentin 300 mg capsule 2021-0 -11 00:00: 00 Yes [id number] TAKE 1 CAPSULE BY MOUTH FOUR TIMES DAILY [facility] gabapentin 300 mg capsule 2021-0 4-11 00:00: 00 Yes [id number] TAKE 1 CAPSULE BY MOUTH FOUR TIMES DAILY [facility] gabapentin 300 mg capsule 2021-0 4-11 00:00: 00 Yes [id number] TAKE 1 CAPSULE BY MOUTH FOUR TIMES DAILY [facility] gabapentin 300 mg capsule 2021-0 -11 00:00: 00 Yes [id number] TAKE 1 CAPSULE BY MOUTH FOUR TIMES DAILY [facility] gabapentin 300 mg capsule 2021-0 -11 00:00: 00 04-29 00:00 :00 No [id number] TAKE 1 CAPSULE BY MOUTH FOUR TIMES DAILY [facility] TRUE METRIX GLUCOSE METER Kit 0 16 00:00: 00 Yes [id number] Use as directed for 4 times a day glucose check, ICD E11.9 [facility] TRUE METRIX GLUCOSE TEST STRIP strip 2021-0 316 00:00: 00 Yes [id number] Use as directed to check blood sugar QID DX: E11.9 [facility] TRUE METRIX GLUCOSE METER Kit 0 16 00:00: 00 Yes [id number] Use as directed for 4 times a day glucose check, ICD E11.9 [facility] TRUE METRIX GLUCOSE TEST STRIP strip 2021-0 316 00:00: 00 Yes [id number] Use as directed to check blood sugar QID DX: E11.9 [facility] TRUE METRIX GLUCOSE METER Kit 2021-0 3-16 00:00: 00 Yes [id number] Use as directed for 4 times a day glucose check, ICD E11.9 [facility] TRUE METRIX GLUCOSE TEST STRIP strip 2021-0 3-16 00:00: 00 Yes [id number] Use as directed to check blood sugar QID DX: E11.9 [facility] TRUE METRIX GLUCOSE METER Kit 2022-0 3-16 00:00: 00 Yes [id number] Use as directed for 4 times a day glucose check, ICD E11.9 [facility] TRUE METRIX GLUCOSE TEST STRIP strip 2-0 3-16 00:00: 00 Yes [id number] Use as directed to check blood sugar QID DX: E11.9 [facility] TRUE METRIX GLUCOSE METER Kit 2-0 3-16 00:00: 00 Yes [id number] Use as directed for 4 times a day glucose check, ICD E11.9 [facility] TRUE METRIX GLUCOSE TEST STRIP strip 2-0 3-16 00:00: 00 Yes [id number] Use as directed to check blood sugar QID DX: E11.9 [facility] TRUE METRIX GLUCOSE METER Kit 2-0 3-16 00:00: 00 Yes [id number] Use as directed for 4 times a day glucose check, ICD E11.9 [facility] TRUE METRIX GLUCOSE TEST STRIP strip 2-0 3-16 00:00: 00 Yes [id number] Use as directed to check blood sugar QID DX: E11.9 [facility] TRUE METRIX GLUCOSE METER Kit 2-0 3-16 00:00: 00 Yes [id number] Use as directed for 4 times a day glucose check, ICD E11.9 [facility] TRUE METRIX GLUCOSE TEST STRIP strip 2-0 3-16 00:00: 00 Yes [id number] Use as directed to check blood sugar QID DX: E11.9 [facility] TRUE METRIX GLUCOSE METER Kit 2-0 3-16 00:00: 00 Yes [id number] Use as directed for 4 times a day glucose check, ICD E11.9 [facility] TRUE METRIX GLUCOSE TEST STRIP strip 2-0 3-16 00:00: 00 Yes [id number] Use as directed to check blood sugar QID DX: E11.9 [facility] TRUE METRIX GLUCOSE METER Kit 2-0 3-16 00:00: 00 Yes [id number] Use as directed for 4 times a day glucose check, ICD E11.9 [facility] TRUE METRIX GLUCOSE TEST STRIP strip 2-0 3-16 00:00: 00 Yes [id number] Use as directed to check blood sugar QID DX: E11.9 [facility] TRUE METRIX GLUCOSE METER Kit 2-0 3-16 00:00: 00 Yes [id number] Use as directed for 4 times a day glucose check, ICD E11.9 [facility] TRUE METRIX GLUCOSE TEST STRIP strip 2-0 3-16 00:00: 00 Yes [id number] Use as directed to check blood sugar QID DX: E11.9 [facility] TRUE METRIX GLUCOSE METER Kit 2-0 3-16 00:00: 00 Yes [id number] Use as directed for 4 times a day glucose check, ICD E11.9 [facility] TRUE METRIX GLUCOSE TEST STRIP strip 2-0 3-16 00:00: 00 Yes [id number] Use as directed to check blood sugar QID DX: E11.9 [facility] TRUE METRIX GLUCOSE METER Kit 2-0 3-16 00:00: 00 Yes [id number] Use as directed for 4 times a day glucose check, ICD E11.9 [facility] TRUE METRIX GLUCOSE TEST STRIP strip 2-0 3-16 00:00: 00 Yes [id number] Use as directed to check blood sugar QID DX: E11.9 [facility] TRUE METRIX GLUCOSE METER Kit 2-0 3-16 00:00: 00 Yes [id number] Use as directed for 4 times a day glucose check, ICD E11.9 [facility] TRUE METRIX GLUCOSE TEST STRIP strip 2-0 3-16 00:00: 00 Yes [id number] Use as directed to check blood sugar QID DX: E11.9 [facility] TRUE METRIX GLUCOSE METER Kit 2-0 3-16 00:00: 00 Yes [id number] Use as directed for 4 times a day glucose check, ICD E11.9 [facility] TRUE METRIX GLUCOSE TEST STRIP strip 2-0 3-16 00:00: 00 Yes [id number] Use as directed to check blood sugar QID DX: E11.9 [facility] TRUE METRIX GLUCOSE METER Kit 2-0 3-16 00:00: 00 Yes [id number] Use as directed for 4 times a day glucose check, ICD E11.9 [facility] TRUE METRIX GLUCOSE TEST STRIP strip 2-0 3-16 00:00: 00 Yes [id number] Use as directed to check blood sugar QID DX: E11.9 [facility] TRUE METRIX GLUCOSE METER Kit 2-0 3-16 00:00: 00 Yes [id number] Use as directed for 4 times a day glucose check, ICD E11.9 [facility] TRUE METRIX GLUCOSE TEST STRIP strip 2-0 3-16 00:00: 00 Yes [id number] Use as directed to check blood sugar QID DX: E11.9 [facility] TRUE METRIX GLUCOSE METER Kit 2-0 3-16 00:00: 00 Yes [id number] Use as directed for 4 times a day glucose check, ICD E11.9 [facility] TRUE METRIX GLUCOSE TEST STRIP strip 2-0 3-16 00:00: 00 Yes [id number] Use as directed to check blood sugar QID DX: E11.9 [facility] TRUE METRIX GLUCOSE METER Kit 2-0 3-16 00:00: 00 Yes [id number] Use as directed for 4 times a day glucose check, ICD E11.9 [facility] TRUE METRIX GLUCOSE TEST STRIP strip 2-0 3-16 00:00: 00 Yes [id number] Use as directed to check blood sugar QID DX: E11.9 [facility] TRUE METRIX GLUCOSE METER Kit 2-0 3-16 00:00: 00 Yes [id number] Use as directed for 4 times a day glucose check, ICD E11.9 [facility] TRUE METRIX GLUCOSE TEST STRIP strip 2-0 3-16 00:00: 00 Yes [id number] Use as directed to check blood sugar QID DX: E11.9 [facility] TRUE METRIX GLUCOSE METER Kit 2-0 3-16 00:00: 00 Yes [id number] Use as directed for 4 times a day glucose check, ICD E11.9 [facility] TRUE METRIX GLUCOSE TEST STRIP strip 2-0 3-16 00:00: 00 Yes [id number] Use as directed to check blood sugar QID DX: E11.9 [facility] TRUE METRIX GLUCOSE METER Kit 2-0 3-16 00:00: 00 Yes [id number] Use as directed for 4 times a day glucose check, ICD E11.9 [facility] TRUE METRIX GLUCOSE TEST STRIP strip 2-0 3-16 00:00: 00 Yes [id number] Use as directed to check blood sugar QID DX: E11.9 [facility] TRUE METRIX GLUCOSE METER Kit 2021-0 3-16 00:00: 00 Yes [id number] Use as directed for 4 times a day glucose check, ICD E11.9 [facility] TRUE METRIX GLUCOSE TEST STRIP strip 2021-0 3-16 00:00: 00 Yes [id number] Use as directed to check blood sugar QID DX: E11.9 [facility] TRUE METRIX GLUCOSE METER Kit 2-0 3-16 00:00: 00 Yes [id number] Use as directed for 4 times a day glucose check, ICD E11.9 [facility] [facility] TRUE [employer] GLUCOSE TEST STRIP strip 2-0 3-16 00:00: 00 Yes [id number] Use as directed to check blood sugar QID DX: E11.9 [facility] TRUE [employer] GLUCOSE METER Kit 2-0 3-16 00:00: 00 Yes [id number] Use as directed for 4 times a day glucose check, ICD E11.9 [facility] TRUE [employer] GLUCOSE TEST STRIP strip 2-0 3-16 00:00: 00 Yes [id number] Use as directed to check blood sugar QID DX: E11.9 [facility] TRUE [employer] GLUCOSE METER Kit 2-0 3-16 00:00: 00 Yes [id number] Use as directed for 4 times a day glucose check, ICD E11.9 [facility] TRUE [employer] GLUCOSE TEST STRIP strip 2-0 3-16 00:00: 00 Yes [id number] Use as directed to check blood sugar QID DX: E11.9 [facility] TRUE [employer] GLUCOSE METER Kit 2-0 3-16 00:00: 00 Yes [id number] Use as directed for 4 times a day glucose check, ICD E11.9 [facility] TRUE [employer] GLUCOSE TEST STRIP strip 2-0 3-16 00:00: 00 Yes [id number] Use as directed to check blood sugar QID DX: E11.9 [facility] TRUE [employer] GLUCOSE METER Kit 2-0 3-16 00:00: 00 Yes [id number] Use as directed for 4 times a day glucose check, ICD E11.9 [facility] TRUE [employer] GLUCOSE TEST STRIP strip 2-0 3-16 00:00: 00 Yes [id number] Use as directed to check blood sugar QID DX: E11.9 [facility] TRUE [employer] GLUCOSE METER Kit 2-0 3-16 00:00: 00 Yes [id number] Use as directed for 4 times a day glucose check, ICD E11.9 [facility] TRUE [employer] GLUCOSE TEST STRIP strip 2-0 3-16 00:00: 00 Yes [id number] Use as directed to check blood sugar QID DX: E11.9 [facility] TRUE [employer] GLUCOSE METER Kit 2-0 3-16 00:00: 00 Yes [id number] Use as directed for 4 times a day glucose check, ICD E11.9 [facility] TRUE [employer] GLUCOSE TEST STRIP strip 2-0 3-16 00:00: 00 Yes [id number] Use as directed to check blood sugar QID DX: E11.9 [facility] TRUE [employer] GLUCOSE METER Kit 2-0 3-16 00:00: 00 Yes [id number] Use as directed for 4 times a day glucose check, ICD E11.9 [facility] TRUE [employer] GLUCOSE TEST STRIP strip 2-0 3-16 00:00: 00 Yes [id number] Use as directed to check blood sugar QID DX: E11.9 [facility] TRUE [employer] GLUCOSE METER Kit 2-0 3-16 00:00: 00 Yes [id number] Use as directed for 4 times a day glucose check, ICD E11.9 [facility] TRUE [employer] GLUCOSE TEST STRIP strip 2-0 3-16 00:00: 00 Yes [id number] Use as directed to check blood sugar QID DX: E11.9 [facility] TRUE [employer] GLUCOSE METER Kit 2-0 3-16 00:00: 00 Yes [id number] Use as directed for 4 times a day glucose check, ICD E11.9 [facility] TRUE [employer] GLUCOSE TEST STRIP strip 2-0 3-16 00:00: 00 Yes [id number] Use as directed to check blood sugar QID DX: E11.9 [facility] TRUE [employer] GLUCOSE METER Kit 2-0 3-16 00:00: 00 Yes [id number] Use as directed for 4 times a day glucose check, ICD E11.9 [facility] TRUE [employer] GLUCOSE TEST STRIP strip 2-0 3-16 00:00: 00 Yes [id number] Use as directed to check blood sugar QID DX: E11.9 [facility] TRUE [employer] GLUCOSE METER Kit 2-0 3-16 00:00: 00 Yes [id number] Use as directed for 4 times a day glucose check, ICD E11.9 [facility] TRUE [employer] GLUCOSE TEST STRIP strip 2-0 3-16 00:00: 00 Yes [id number] Use as directed to check blood sugar QID DX: E11.9 [facility] TRUE [employer] GLUCOSE METER Kit 2-0 3-16 00:00: 00 Yes [id number] Use as directed for 4 times a day glucose check, ICD E11.9 [facility] TRUE [employer] GLUCOSE TEST STRIP strip 2-0 3-16 00:00: 00 Yes [id number] Use as directed to check blood sugar QID DX: E11.9 [facility] TRUE [employer] GLUCOSE METER Kit 2-0 3-16 00:00: 00 Yes [id number] Use as directed for 4 times a day glucose check, ICD E11.9 [facility] TRUE [employer] GLUCOSE TEST STRIP strip 2-0 3-16 00:00: 00 Yes [id number] Use as directed to check blood sugar QID DX: E11.9 [facility] TRUE [employer] GLUCOSE METER Kit 2-0 3-16 00:00: 00 Yes [id number] Use as directed for 4 times a day glucose check, ICD E11.9 [facility] TRUE [employer] GLUCOSE TEST STRIP strip 2-0 3-16 00:00: 00 Yes [id number] Use as directed to check blood sugar QID DX: E11.9 [facility] TRUE [employer] GLUCOSE METER Kit 2-0 3-16 00:00: 00 Yes [id number] Use as directed for 4 times a day glucose check, ICD E11.9 [facility] TRUE [employer] GLUCOSE TEST STRIP strip 2-0 3-16 00:00: 00 Yes [id number] Use as directed to check blood sugar QID DX: E11.9 [facility] TRUE [employer] GLUCOSE METER Kit 2-0 3-16 00:00: 00 Yes [id number] Use as directed for 4 times a day glucose check, ICD E11.9 [facility] TRUE [employer] GLUCOSE TEST STRIP strip 2-0 3-16 00:00: 00 Yes [id number] Use as directed to check blood sugar QID DX: E11.9 [facility] TRUE [employer] GLUCOSE METER Kit 2-0 3-16 00:00: 00 Yes [id number] Use as directed for 4 times a day glucose check, ICD E11.9 [facility] TRUE [employer] GLUCOSE TEST STRIP strip 2-0 3-16 00:00: 00 Yes [id number] Use as directed to check blood sugar QID DX: E11.9 [facility] TRUE [employer] GLUCOSE METER Kit 2-0 3-16 00:00: 00 Yes [id number] Use as directed for 4 times a day glucose check, ICD E11.9 [facility] TRUE [employer] GLUCOSE TEST STRIP strip 2-0 3-16 00:00: 00 Yes [id number] Use as directed to check blood sugar QID DX: E11.9 [facility] TRUE [employer] GLUCOSE METER Kit 2-0 3-16 00:00: 00 Yes [id number] Use as directed for 4 times a day glucose check, ICD E11.9 [facility] TRUE [employer] GLUCOSE TEST STRIP strip 2022-0 3-16 00:00: 00 Yes [id number] Use as directed to check blood sugar QID DX: E11.9 [facility] TRUE [employer] GLUCOSE METER Kit 2-0 3-16 00:00: 00 Yes [id number] Use as directed for 4 times a day glucose check, ICD E11.9 [facility] TRUE [employer] GLUCOSE TEST STRIP strip 2021-0 3-16 00:00: 00 Yes [id number] Use as directed to check blood sugar QID DX: E11.9 [facility] TRUE [employer] GLUCOSE METER Kit 2-0 3-16 00:00: 00 Yes [id number] Use as directed for 4 times a day glucose check, ICD E11.9 [facility] TRUE [employer] GLUCOSE TEST STRIP strip 2-0 3-16 00:00: 00 Yes [id number] Use as directed to check blood sugar QID DX: E11.9 [facility] TRUE [employer] GLUCOSE METER Kit 2-0 3-16 00:00: 00 Yes [id number] Use as directed for 4 times a day glucose check, ICD E11.9 [facility] TRUE [employer] GLUCOSE TEST STRIP strip 2-0 3-16 00:00: 00 Yes [id number] Use as directed to check blood sugar QID DX: E11.9 [facility] TRUE [employer] GLUCOSE METER Kit 2-0 3-16 00:00: 00 Yes [id number] Use as directed for 4 times a day glucose check, ICD E11.9 [facility] TRUE [employer] GLUCOSE TEST STRIP strip 2-0 3-16 00:00: 00 Yes [id number] Use as directed to check blood sugar QID DX: E11.9 [facility] TRUE [employer] GLUCOSE METER Kit 2-0 3-16 00:00: 00 Yes [id number] Use as directed for 4 times a day glucose check, ICD E11.9 [facility] TRUE [employer] GLUCOSE TEST STRIP strip 2-0 3-16 00:00: 00 Yes [id number] Use as directed to check blood sugar QID DX: E11.9 [facility] TRUE [employer] GLUCOSE METER Kit 2-0 3-16 00:00: 00 Yes [id number] Use as directed for 4 times a day glucose check, ICD E11.9 [facility] TRUE [employer] GLUCOSE TEST STRIP strip 2-0 3-16 00:00: 00 Yes [id number] Use as directed to check blood sugar QID DX: E11.9 [facility] TRUE [employer] GLUCOSE METER Kit 2-0 3-16 00:00: 00 Yes [id number] Use as directed for 4 times a day glucose check, ICD E11.9 [facility] TRUE [employer] GLUCOSE TEST STRIP strip 2-0 3-16 00:00: 00 Yes [id number] Use as directed to check blood sugar QID DX: E11.9 [facility] TRUE [employer] GLUCOSE METER Kit 2-0 3-16 00:00: 00 Yes [id number] Use as directed for 4 times a day glucose check, ICD E11.9 [facility] TRUE [employer] GLUCOSE TEST STRIP strip 2-0 3-16 00:00: 00 Yes [id number] Use as directed to check blood sugar QID DX: E11.9 [facility] TRUE [employer] GLUCOSE METER Kit 2-0 3-16 00:00: 00 Yes [id number] Use as directed for 4 times a day glucose check, ICD E11.9 [facility] TRUE [employer] GLUCOSE TEST STRIP strip 2-0 3-16 00:00: 00 Yes [id number] Use as directed to check blood sugar QID DX: E11.9 [facility] TRUE [employer] GLUCOSE METER Kit 2021-0 3-16 00:00: 00 Yes [id number] Use as directed for 4 times a day glucose check, ICD E11.9 [facility] TRUE [employer] GLUCOSE TEST STRIP strip 2-0 3-16 00:00: 00 Yes [id number] Use as directed to check blood sugar QID DX: E11.9 [facility] TRUE [employer] GLUCOSE METER Kit 2-0 3-16 00:00: 00 Yes [id number] Use as directed for 4 times a day glucose check, ICD E11.9 [facility] TRUE [employer] GLUCOSE TEST STRIP strip 2-0 3-16 00:00: 00 Yes [id number] Use as directed to check blood sugar QID DX: E11.9 [facility] TRUE [employer] GLUCOSE METER Kit 2022-0 3-16 00:00: 00 Yes [id number] Use as directed for 4 times a day glucose check, ICD E11.9 [facility] TRUE [employer] GLUCOSE TEST STRIP strip 2-0 3-16 00:00: 00 Yes [id number] Use as directed to check blood sugar QID DX: E11.9 [facility] TRUE [employer] GLUCOSE METER Kit 2-0 3-16 00:00: 00 Yes [id number] Use as directed for 4 times a day glucose check, ICD E11.9 [facility] TRUE [employer] GLUCOSE TEST STRIP strip 2-0 3-16 00:00: 00 Yes [id number] Use as directed to check blood sugar QID DX: E11.9 [facility] TRUE [employer] GLUCOSE METER Kit 2-0 3-16 00:00: 00 Yes [id number] Use as directed for 4 times a day glucose check, ICD E11.9 [facility] TRUE [employer] GLUCOSE TEST STRIP strip 2-0 3-16 00:00: 00 Yes [id number] Use as directed to check blood sugar QID DX: E11.9 [facility] TRUE [employer] GLUCOSE METER Kit 2-0 3-16 00:00: 00 Yes [id number] Use as directed for 4 times a day glucose check, ICD E11.9 [facility] TRUE [employer] GLUCOSE TEST STRIP strip 2-0 3-16 00:00: 00 Yes [id number] Use as directed to check blood sugar QID DX: E11.9 [facility] TRUE [employer] GLUCOSE METER Kit 2-0 3-16 00:00: 00 Yes [id number] Use as directed for 4 times a day glucose check, ICD E11.9 [facility] TRUE [employer] GLUCOSE TEST STRIP strip 2-0 3-16 00:00: 00 Yes [id number] Use as directed to check blood sugar QID DX: E11.9 [facility] TRUE [employer] GLUCOSE METER Kit 2-0 3-16 00:00: 00 Yes [id number] Use as directed for 4 times a day glucose check, ICD E11.9 [facility] TRUE [employer] GLUCOSE TEST STRIP strip 2-0 3-16 00:00: 00 Yes [id number] Use as directed to check blood sugar QID DX: E11.9 [facility] TRUE [employer] GLUCOSE METER Kit 2-0 3-16 00:00: 00 Yes [id number] Use as directed for 4 times a day glucose check, ICD E11.9 [facility] TRUE [employer] GLUCOSE TEST STRIP strip 2-0 3-16 00:00: 00 Yes [id number] Use as directed to check blood sugar QID DX: E11.9 [facility] TRUE [employer] GLUCOSE METER Kit 2-0 3-16 00:00: 00 Yes [id number] Use as directed for 4 times a day glucose check, ICD E11.9 [facility] TRUE [employer] GLUCOSE TEST STRIP strip 2-0 3-16 00:00: 00 Yes [id number] Use as directed to check blood sugar QID DX: E11.9 [facility] TRUE [employer] GLUCOSE METER Kit 2-0 3-16 00:00: 00 Yes [id number] Use as directed for 4 times a day glucose check, ICD E11.9 [facility] TRUE [employer] GLUCOSE TEST STRIP strip 2-0 3-16 00:00: 00 Yes [id number] Use as directed to check blood sugar QID DX: E11.9 [facility] TRUE [employer] GLUCOSE METER Kit 2-0 3-16 00:00: 00 Yes [id number] Use as directed for 4 times a day glucose check, ICD E11.9 [facility] TRUE [employer] GLUCOSE TEST STRIP strip 2-0 3-16 00:00: 00 Yes [id number] Use as directed to check blood sugar QID DX: E11.9 [facility] TRUE [employer] GLUCOSE METER Kit 2-0 3-16 00:00: 00 Yes [id number] Use as directed for 4 times a day glucose check, ICD E11.9 [facility] TRUE [employer] GLUCOSE TEST STRIP strip 2-0 3-16 00:00: 00 Yes [id number] Use as directed to check blood sugar QID DX: E11.9 [facility] TRUE [employer] GLUCOSE METER Kit 2-0 3-16 00:00: 00 Yes [id number] Use as directed for 4 times a day glucose check, ICD E11.9 [facility] TRUE [employer] GLUCOSE TEST STRIP strip 2-0 3-16 00:00: 00 Yes [id number] Use as directed to check blood sugar QID DX: E11.9 [facility] TRUE [employer] GLUCOSE METER Kit 2-0 3-16 00:00: 00 Yes [id number] Use as directed for 4 times a day glucose check, ICD E11.9 [facility] TRUE [employer] GLUCOSE TEST STRIP strip 2-0 3-16 00:00: 00 Yes [id number] Use as directed to check blood sugar QID DX: E11.9 [facility] TRUE [employer] GLUCOSE METER Kit 2-0 3-16 00:00: 00 Yes [id number] Use as directed for 4 times a day glucose check, ICD E11.9 [facility] TRUE [employer] GLUCOSE TEST STRIP strip 2-0 3-16 00:00: 00 Yes [id number] Use as directed to check blood sugar QID DX: E11.9 [facility] TRUE [employer] GLUCOSE METER Kit 2-0 3-16 00:00: 00 Yes [id number] Use as directed for 4 times a day glucose check, ICD E11.9 [facility] TRUE [employer] GLUCOSE TEST STRIP strip 2-0 3-16 00:00: 00 Yes [id number] Use as directed to check blood sugar QID DX: E11.9 [facility] TRUE [employer] GLUCOSE METER Kit 2-0 3-16 00:00: 00 Yes [id number] Use as directed for 4 times a day glucose check, ICD E11.9 [facility] TRUE [employer] GLUCOSE TEST STRIP strip 2-0 3-16 00:00: 00 Yes [id number] Use as directed to check blood sugar QID DX: E11.9 [facility] TRUE [employer] GLUCOSE METER Kit 2-0 3-16 00:00: 00 Yes [id number] Use as directed for 4 times a day glucose check, ICD E11.9 [facility] TRUE [employer] GLUCOSE TEST STRIP strip 2-0 3-16 00:00: 00 Yes [id number] Use as directed to check blood sugar QID DX: E11.9 [facility] TRUE [employer] GLUCOSE METER Kit 2-0 3-16 00:00: 00 Yes [id number] Use as directed for 4 times a day glucose check, ICD E11.9 [facility] TRUE [employer] GLUCOSE TEST STRIP strip 2-0 3-16 00:00: 00 Yes [id number] Use as directed to check blood sugar QID DX: E11.9 [facility] TRUE [employer] GLUCOSE METER Kit 2021-0 3-16 00:00: 00 Yes [id number] Use as directed for 4 times a day glucose check, ICD E11.9 [facility] TRUE [employer] GLUCOSE TEST STRIP strip 2021-0 3-16 00:00: 00 Yes [id number] Use as directed to check blood sugar QID DX: E11.9 [facility] TRUE [employer] GLUCOSE METER Kit 2-0 3-16 00:00: 00 Yes [id number] Use as directed for 4 times a day glucose check, ICD E11.9 [facility] TRUE [employer] GLUCOSE TEST STRIP strip 2-0 3-16 00:00: 00 Yes [id number] Use as directed to check blood sugar QID DX: E11.9 [facility] TRUE [employer] GLUCOSE METER Kit 2-0 3-16 00:00: 00 Yes [id number] Use as directed for 4 times a day glucose check, ICD E11.9 [facility] TRUE [employer] GLUCOSE TEST STRIP strip 2-0 3-16 00:00: 00 Yes [id number] Use as directed to check blood sugar QID DX: E11.9 [facility] TRUE [employer] GLUCOSE METER Kit 2-0 3-16 00:00: 00 Yes [id number] Use as directed for 4 times a day glucose check, ICD E11.9 [facility] TRUE [employer] GLUCOSE TEST STRIP strip 2-0 3-16 00:00: 00 Yes [id number] Use as directed to check blood sugar QID DX: E11.9 [facility] TRUE [employer] GLUCOSE METER Kit 2-0 3-16 00:00: 00 Yes [id number] Use as directed for 4 times a day glucose check, ICD E11.9 [facility] TRUE [employer] GLUCOSE TEST STRIP strip 2-0 3-16 00:00: 00 Yes [id number] Use as directed to check blood sugar QID DX: E11.9 [facility] TRUE [employer] GLUCOSE METER Kit 2-0 3-16 00:00: 00 Yes [id number] Use as directed for 4 times a day glucose check, ICD E11.9 [facility] TRUE [employer] GLUCOSE TEST STRIP strip 2-0 3-16 00:00: 00 Yes [id number] Use as directed to check blood sugar QID DX: E11.9 [facility] TRUE [employer] GLUCOSE METER Kit 2-0 3-16 00:00: 00 Yes [id number] Use as directed for 4 times a day glucose check, ICD E11.9 [facility] TRUE [employer] GLUCOSE TEST STRIP strip 2-0 3-16 00:00: 00 Yes [id number] Use as directed to check blood sugar QID DX: E11.9 [facility] TRUE [employer] GLUCOSE METER Kit 2-0 3-16 00:00: 00 Yes [id number] Use as directed for 4 times a day glucose check, ICD E11.9 [facility] TRUE [employer] GLUCOSE TEST STRIP strip 2-0 3-16 00:00: 00 Yes [id number] Use as directed to check blood sugar QID DX: E11.9 [facility] TRUE [employer] GLUCOSE METER Kit 2-0 3-16 00:00: 00 Yes [id number] Use as directed for 4 times a day glucose check, ICD E11.9 [facility] TRUE [employer] GLUCOSE TEST STRIP strip 2-0 3-16 00:00: 00 Yes [id number] Use as directed to check blood sugar QID DX: E11.9 [facility] TRUE [employer] GLUCOSE METER Kit 2-0 3-16 00:00: 00 Yes [id number] Use as directed for 4 times a day glucose check, ICD E11.9 [facility] TRUE [employer] GLUCOSE TEST STRIP strip 2-0 3-16 00:00: 00 Yes [id number] Use as directed to check blood sugar QID DX: E11.9 [facility] TRUE [employer] GLUCOSE METER Kit 2-0 3-16 00:00: 00 Yes [id number] Use as directed for 4 times a day glucose check, ICD E11.9 [facility] TRUE [employer] GLUCOSE TEST STRIP strip 2-0 3-16 00:00: 00 Yes [id number] Use as directed to check blood sugar QID DX: E11.9 [facility] TRUE [employer] GLUCOSE METER Kit 2021-0 3-16 00:00: 00 Yes [id number] Use as directed for 4 times a day glucose check, ICD E11.9 [facility] TRUE [employer] GLUCOSE TEST STRIP strip 2021-0 3-16 00:00: 00 Yes [id number] Use as directed to check blood sugar QID DX: E11.9 [facility] TRUE [employer] GLUCOSE METER Kit 2-0 3-16 00:00: 00 Yes [id number] Use as directed for 4 times a day glucose check, ICD E11.9 [facility] TRUE [employer] GLUCOSE TEST STRIP strip 2-0 3-16 00:00: 00 Yes [id number] Use as directed to check blood sugar QID DX: E11.9 [facility] TRUE [employer] GLUCOSE METER Kit 2-0 3-16 00:00: 00 Yes [id number] Use as directed for 4 times a day glucose check, ICD E11.9 [facility] TRUE [employer] GLUCOSE METER Kit 2-0 3-16 00:00: 00 Yes [id number] Use as directed for 4 times a day glucose check, ICD E11.9 [facility] TRUE [employer] GLUCOSE METER Kit 2-0 3-16 00:00: 00 Yes [id number] Use as directed for 4 times a day glucose check, ICD E11.9 [facility] TRUE [employer] GLUCOSE METER Kit 2-0 3-16 00:00: 00 Yes [id number] Use as directed for 4 times a day glucose check, ICD E11.9 [facility] TRUE [employer] GLUCOSE METER Kit 2-0 3-16 00:00: 00 Yes [id number] Use as directed for 4 times a day glucose check, ICD E11.9 [facility] TRUE [employer] GLUCOSE METER Kit 2022-0 3-16 00:00: 00 Yes [id number] Use as directed for 4 times a day glucose check, ICD E11.9 [facility] TRUE [employer] GLUCOSE METER Kit 2022-0 3-16 00:00: 00 Yes [id number] Use as directed for 4 times a day glucose check, ICD E11.9 [facility] TRUE [employer] GLUCOSE METER Kit 2022-0 3-16 00:00: 00 Yes [id number] Use as directed for 4 times a day glucose check, ICD E11.9 [facility] TRUE [employer] GLUCOSE METER Kit 2022-0 3-16 00:00: 00 Yes [id number] Use as directed for 4 times a day glucose check, ICD E11.9 [facility] TRUE [employer] GLUCOSE METER Kit 2022-0 3-16 00:00: 00 Yes [id number] Use as directed for 4 times a day glucose check, ICD E11.9 [facility] TRUE [employer] GLUCOSE METER Kit 2022-0 3-16 00:00: 00 Yes [id number] Use as directed for 4 times a day glucose check, ICD E11.9 [facility] TRUE [employer] GLUCOSE METER Kit 2022-0 3-16 00:00: 00 Yes [id number] Use as directed for 4 times a day glucose check, ICD E11.9 [facility] TRUE [employer] GLUCOSE METER Kit 2022-0 3-16 00:00: 00 Yes [id number] Use as directed for 4 times a day glucose check, ICD E11.9 [facility] TRUE [employer] GLUCOSE METER Kit 2022-0 3-16 00:00: 00 Yes [id number] Use as directed for 4 times a day glucose check, ICD E11.9 [facility] TRUE [employer] GLUCOSE METER Kit 2022-0 3-16 00:00: 00 Yes [id number] Use as directed for 4 times a day glucose check, ICD E11.9 [facility] TRUE [employer] GLUCOSE METER Kit 2022-0 3-16 00:00: 00 Yes [id number] Use as directed for 4 times a day glucose check, ICD E11.9 [facility] MET[facility] Kit 2-0 3-16 00:00: 00 Yes [id number] Use as directed for 4 times a day glucose check, ICD E11.9 [facility] TRUE [employer] GLUCOSE METER Kit 2-0 3-16 00:00: 00 Yes [id number] Use as directed for 4 times a day glucose check, ICD E11.9 [facility] [employer] GLUCOSE METER Kit 2-0 3-16 00:00: 00 Yes [id number] Use as directed for 4 times a day glucose check, ICD E11.9 [facility] TRUE [employer] GLUCOSE METER Kit 2-0 3-16 00:00: 00 Yes [id number] Use as directed for 4 times a day glucose check, ICD E11.9 [facility] TRUE [employer] GLUCOSE METER Kit 2-0 3-16 00:00: 00 Yes [id number] Use as directed for 4 times a day glucose check, ICD E11.9 [facility] TRUE [employer] GLUCOSE METER Kit 2-0 3-16 00:00: 00 Yes [id number] Use as directed for 4 times a day glucose check, ICD E11.9 [facility] TRUE [employer] GLUCOSE METER Kit 2-0 3-16 00:00: 00 Yes [id number] Use as directed for 4 times a day glucose check, ICD E11.9 [facility] TRUE [employer] GLUCOSE METER Kit 2-0 3-16 00:00: 00 Yes [id number] Use as directed for 4 times a day glucose check, ICD E11.9 [facility] TRUE [employer] GLUCOSE METER Kit 2-0 3-16 00:00: 00 Yes [id number] Use as directed for 4 times a day glucose check, ICD E11.9 [facility] TRUE [employer] GLUCOSE METER Kit 2-0 3-16 00:00: 00 Yes [id number] Use as directed for 4 times a day glucose check, ICD E11.9 [facility] TRUE [employer] GLUCOSE METER Kit 2022-0 3-16 00:00: 00 Yes [id number] Use as directed for 4 times a day glucose check, ICD E11.9 [facility] TRUE [employer] GLUCOSE METER Kit 2-0 3-16 00:00: 00 Yes [id number] Use as directed for 4 times a day glucose check, ICD E11.9 [facility] [employer] GLUCOSE METER Kit 2-0 3-16 00:00: 00 Yes [id number] Use as directed for 4 times a day glucose check, ICD E11.9 [facility] TRUE [employer] GLUCOSE METER Kit 2-0 3-16 00:00: 00 Yes [id number] Use as directed for 4 times a day glucose check, ICD E11.9 [facility] [place] TRUE [employer] MET[employer] Kit 2-0 3-16 00:00: 00 Yes [id number] Use as directed for 4 times a day glucose check, ICD E11.9 [facility] [place] TRUE [employer]SE METER Kit 2-0 3-16 00:00: 00 Yes [id number] Use as directed for 4 times a day glucose check, ICD E11.9 [facility] [place] TRUE [employer]SE METER Kit 2-0 3-16 00:00: 00 Yes [id number] Use as directed for 4 times a day glucose check, ICD E11.9 [facility] [place] TRUE [employer]SE METER Kit 2-0 3-16 00:00: 00 Yes [id number] Use as directed for 4 times a day glucose check, ICD E11.9 [facility] [place] TRUE [employer]SE METER Kit 2021-0 3-16 00:00: 00 Yes [id number] Use as directed for 4 times a day glucose check, ICD E11.9 [facility] [place] TRUE [employer]SE METER Kit 2-0 3-16 00:00: 00 Yes [id number] Use as directed for 4 times a day glucose check, ICD E11.9 [facility] [place] TRUE [employer]SE METER Kit 2-0 3-16 00:00: 00 Yes [id number] Use as directed for 4 times a day glucose check, ICD E11.9 [facility] [place] TRUE [employer]SE METER Kit 2-0 3-16 00:00: 00 Yes [id number] Use as directed for 4 times a day glucose check, ICD E11.9 [facility] [place] TRUE [employer]SE METER Kit 2022-0 3-16 00:00: 00 Yes [id number] Use as directed for 4 times a day glucose check, ICD E11.9 [facility] TRUE [employer] GLUCOSE METER Kit 2-0 3-16 00:00: 00 Yes [id number] Use as directed for 4 times a day glucose check, ICD E11.9 [facility] [place] TRUE [employer]SE METER Kit 2-0 3-16 00:00: 00 Yes [id number] Use as directed for 4 times a day glucose check, ICD E11.9 [facility] [place] TRUE [employer]SE METER Kit 2-0 3-16 00:00: 00 Yes [id number] Use as directed for 4 times a day glucose check, ICD E11.9 [facility] [place] TRUE [employer]SE METER Kit 2-0 3-16 00:00: 00 Yes [id number] Use as directed for 4 times a day glucose check, ICD E11.9 [facility] [place] TRUE [employer]SE METER Kit 2-0 3-16 00:00: 00 Yes [id number] Use as directed for 4 times a day glucose check, ICD E11.9 [facility] [place] TRUE [employer]SE METER Kit 2-0 3-16 00:00: 00 Yes [id number] Use as directed for 4 times a day glucose check, ICD E11.9 [facility] [place] TRUE [employer]SE METER Kit 2-0 3-16 00:00: 00 Yes [id number] Use as directed for 4 times a day glucose check, ICD E11.9 [facility] [place] TRUE [employer]SE METER Kit 2-0 3-16 00:00: 00 Yes [id number] Use as directed for 4 times a day glucose check, ICD E11.9 [facility] [place] TRUE [employer]SE METER Kit 2-0 3-16 00:00: 00 Yes [id number] Use as directed for 4 times a day glucose check, ICD E11.9 [facility] [place] TRUE [employer]SE METER Kit 2022-0 3-16 00:00: 00 Yes [id number] Use as directed for 4 times a day glucose check, ICD E11.9 [facility] [place] TRUE [employer]SE METER Kit 2022-0 3-16 00:00: 00 Yes [id number] Use as directed for 4 times a day glucose check, ICD E11.9 [facility] TRUE [employer]SE METER Kit 2-0 3-16 00:00: 00 Yes [id number] Use as directed for 4 times a day glucose check, ICD E11.9 [facility] TRUE [employer]SE METER Kit 2022-0 3-16 00:00: 00 Yes [id number] Use as directed for 4 times a day glucose check, ICD E11.9 [facility] TRUE [employer]SE METER Kit 2022-0 3-16 00:00: 00 Yes [id number] Use as directed for 4 times a day glucose check, ICD E11.9 [facility] TRUE [employer]SE METER Kit 2-0 3-16 00:00: 00 Yes [id number] Use as directed for 4 times a day glucose check, ICD E11.9 [facility] [place] TRUE [employer]SE METER Kit 2-0 3-16 00:00: 00 Yes [id number] Use as directed for 4 times a day glucose check, ICD E11.9 [facility] [place] TRUE [employer]SE METER Kit 2-0 3-16 00:00: 00 Yes [id number] Use as directed for 4 times a day glucose check, ICD E11.9 [facility] [place] TRUE [employer] METER Kit 2022-0 3-16 00:00: 00 Yes [id number] Use as directed for 4 times a day glucose check, ICD E11.9 [facility] [place] TRUE [employer] MET[employer] Kit 2-0 3-16 00:00: 00 Yes [id number] Use as directed for 4 times a day glucose check, [facility] E11[facility]9 [facility] Kit 2022-0 3-16 00:00: 00 Yes [id number] Use as directed for 4 times a day glucose check, ICD E11.9 [facility] TRUE [employer]SE METER Kit 2022-0 3-16 00:00: 00 Yes [id number] Use as directed for 4 times a day glucose check, ICD E11.9 [facility] TRUE [employer]SE METER Kit 2022-0 3-16 00:00: 00 Yes [id number] Use as directed for 4 times a day glucose check, ICD E11.9 [facility] [employer] [facility] MET[facility] Kit 2-0 3-16 00:00: 00 Yes [id number] Use as directed for 4 times a day glucose check, ICD E11.9 [facility] [employer] [facility] MET[facility] Kit 2-0 3-16 00:00: 00 Yes [id number] Use as directed for 4 times a day glucose check, ICD E11.9 [facility] [place] TRUE [employer]SE METER Kit 2-0 3-16 00:00: 00 Yes [id number] Use as directed for 4 times a day glucose check, ICD E11.9 [facility] [place] TRUE [employer]SE METER Kit 2-0 3-16 00:00: 00 Yes [id number] Use as directed for 4 times a day glucose check, ICD E11.9 [facility] [place] TRUE [employer]SE METER Kit 2-0 3-16 00:00: 00 Yes [id number] Use as directed for 4 times a day glucose check, ICD E11.9 [facility] [place] TRUE [employer] METER Kit 2-0 3-16 00:00: 00 Yes [id number] Use as directed for 4 times a day glucose check, ICD E11.9 [facility] [place] TRUE [employer] METER Kit 2-0 3-16 00:00: 00 Yes [id number] Use as directed for 4 times a day glucose check, ICD E11.9 [facility] [place] TRUE [employer] METER Kit 2-0 3-16 00:00: 00 Yes [id number] Use as directed for 4 times a day glucose check, ICD E11.9 [facility] [place] TRUE [employer] METER Kit 2-0 3-16 00:00: 00 Yes [id number] Use as directed for 4 times a day glucose check, ICD E11.9 [facility] [place] TRUE [employer] METER Kit 2-0 3-16 00:00: 00 Yes [id number] Use as directed for 4 times a day glucose check, ICD E11.9 [facility] [place] TRUE [employer] MET[employer] Kit 2-0 3-16 00:00: 00 Yes [id number] Use as directed for 4 times a day glucose check, ICD E11.9 [facility] TRUE [employer] METER Kit 2-0 3-16 00:00: 00 Yes [id number] Use as directed for 4 times a day glucose check, ICD E11.9 [facility] TRUE [employer] METER Kit 2-0 3-16 00:00: 00 Yes [id number] Use as directed for 4 times a day glucose check, ICD E11.9 [facility] TRUE [employer] MET[employer] Kit 2-0 3-16 00:00: 00 Yes [id number] Use as directed for 4 times a day glucose check, ICD E11.9 [facility] TRUE [employer] MET[employer] Kit 2-0 3-16 00:00: 00 Yes [id number] Use as directed for 4 times a day glucose check, ICD E11.9 [facility] TRUE [employer] METER Kit 2-0 3-16 00:00: 00 Yes [id number] Use as directed for 4 times a day glucose check, ICD E11.9 [facility] [employer] [facility] Kit 2-0 3-16 00:00: 00 Yes [id number] Use as directed for 4 times a day glucose check, ICD E11.9 [facility] TRUE [employer] MET[employer] Kit 2-0 3-16 00:00: 00 Yes [id number] Use as directed for 4 times a day glucose check, ICD E11.9 [facility] [place] TRUE [employer] MET[employer] Kit 2-0 3-16 00:00: 00 Yes [id number] Use as directed for 4 times a day glucose check, ICD E11.9 [facility] TRUE [employer] METER Kit 2-0 3-16 00:00: 00 Yes [id number] Use as directed for 4 times a day glucose check, ICD E11.9 [facility] TRUE [employer] METER Kit 2-0 3-16 00:00: 00 Yes [id number] Use as directed for 4 times a day glucose check, ICD E11.9 [facility] TRUE [employer] MET[employer] Kit 2-0 3-16 00:00: 00 Yes [id number] Use as directed for 4 times a day glucose check, ICD E11.9 [facility] [place] TRUE [employer] MET[employer] Kit 2022-0 3-16 00:00: 00 Yes [id number] Use as directed for 4 times a day glucose check, ICD E11.9 [facility] [place] TRUE [employer] MET[employer] Kit 2022-0 3-16 00:00: 00 Yes [id number] Use as directed for 4 times a day glucose check, ICD E11.9 [facility] [place] TRUE [employer] MET[employer] Kit 2-0 3-16 00:00: 00 Yes [id number] Use as directed for 4 times a day glucose check, ICD E11.9 [facility] [place] TRUE [employer] MET[employer] Kit 2-0 3-16 00:00: 00 Yes [id number] Use as directed for 4 times a day glucose check, ICD E11.9 [facility] [place] TRUE [employer] MET[employer] Kit 2022-0 3-16 00:00: 00 Yes [id number] Use as directed for 4 times a day glucose check, ICD E11.9 [facility] TRUE [employer] GLU[employer]SE METER Kit 2022-0 3-16 00:00: 00 Yes [id number] Use as directed for 4 times a day glucose check, ICD E11.9 [facility] TRUE [employer] METER Kit 2022-0 3-16 00:00: 00 Yes [id number] Use as directed for 4 times a day glucose check, ICD E11.9 [facility] [place] TRUE [employer] MET[employer] Kit 2022-0 3-16 00:00: 00 Yes [id number] Use as directed for 4 times a day glucose check, ICD E11.9 [facility] [place] TRUE [employer] MET[employer] Kit 2022-0 3-16 00:00: 00 Yes [id number] Use as directed for 4 times a day glucose check, ICD E11.9 [facility] [place] TRUE [employer] MET[employer] Kit 2022-0 3-16 00:00: 00 Yes [id number] Use as directed for 4 times a day glucose check, ICD E11.9 [facility] [place] TRUE [employer] METER Kit 2022-0 3-16 00:00: 00 Yes [id number] Use as directed for 4 times a day glucose check, ICD E11.9 [facility] TRUE [employer] METER Kit 2022-0 3-16 00:00: 00 Yes [id number] Use as directed for 4 times a day glucose check, ICD E11.9 [facility] TRUE [employer]SE METER Kit 2022-0 3-16 00:00: 00 Yes [id number] Use as directed for 4 times a day glucose check, ICD E11.9 [facility] TRUE [employer]SE METER Kit 2-0 3-16 00:00: 00 Yes [id number] Use as directed for 4 times a day glucose check, ICD E11.9 [facility] TRUE [employer] METER Kit 2-0 3-16 00:00: 00 Yes [id number] Use as directed for 4 times a day glucose check, ICD E11.9 [facility] [place] TRUE [employer] MET[employer] Kit 2-0 3-16 00:00: 00 Yes [id number] Use as directed for 4 times a day glucose check, ICD E11.9 [facility] [place] TRUE [employer] MET[employer] Kit 2-0 3-16 00:00: 00 Yes [id number] Use as directed for 4 times a day glucose check, ICD E11.9 [facility] [place] TRUE [employer] MET[employer] Kit 2-0 3-16 00:00: 00 Yes [id number] Use as directed for 4 times a day glucose check, ICD E11.9 [facility] [place] TRUE [employer] MET[employer] Kit 2022-0 3-16 00:00: 00 Yes [id number] Use as directed for 4 times a day glucose check, ICD E11.9 [facility] [place] TRUE [employer] MET[employer] Kit 2022-0 3-16 00:00: 00 Yes [id number] Use as directed for 4 times a day glucose check, ICD E11.9 [facility] [place] TRUE [employer] MET[employer] Kit 2022-0 3-16 00:00: 00 Yes [id number] Use as directed for 4 times a day glucose check, ICD E11.9 [facility] [employer] [facility] Kit 2022-0 3-16 00:00: 00 Yes [id number] Use as directed for 4 times a day glucose check, ICD E11.9 [facility] [place] TRUE [employer] MET[employer] Kit 2022-0 3-16 00:00: 00 Yes [id number] Use as directed for 4 times a day glucose check, ICD E11.9 [facility] [place] TRUE [employer] MET[employer] Kit 2022-0 3-16 00:00: 00 Yes [id number] Use as directed for 4 times a day glucose check, ICD E11.9 [facility] [place] TRUE [employer] MET[employer] Kit 2022-0 3-16 00:00: 00 Yes [id number] Use as directed for 4 times a day glucose check, ICD E11.9 [facility] [place] TRUE [employer] MET[employer] Kit 2022-0 3-16 00:00: 00 Yes [id number] Use as directed for 4 times a day glucose check, ICD E11.9 [facility] [place] TRUE [employer] MET[employer] Kit 2022-0 3-16 00:00: 00 Yes [id number] Use as directed for 4 times a day glucose check, ICD E11.9 [facility] [place] TRUE [employer] MET[employer] Kit 2022-0 3-16 00:00: 00 Yes [id number] Use as directed for 4 times a day glucose check, ICD E11.9 [facility] TRUE [employer] MET[employer] Kit 2022-0 3-16 00:00: 00 Yes [id number] Use as directed for 4 times a day glucose check, ICD E11.9 [facility] TRUE [employer] MET[employer] Kit 2022-0 3-16 00:00: 00 Yes [id number] Use as directed for 4 times a day glucose check, ICD E11.9 [facility] [place] TRUE [employer] MET[employer] Kit 2022-0 3-16 00:00: 00 Yes [id number] Use as directed for 4 times a day glucose check, ICD E11.9 [facility] [place] TRUE [employer] MET[employer] Kit 2022-0 3-16 00:00: 00 Yes [id number] Use as directed for 4 times a day glucose check, ICD E11.9 [facility] [place] TRUE [employer] MET[employer] Kit 2022-0 3-16 00:00: 00 Yes [id number] Use as directed for 4 times a day glucose check, ICD E11.9 [facility] [employer] [facility] Kit 2-0 3-16 00:00: 00 Yes [id number] Use as directed for 4 times a day glucose check, ICD E11.9 [facility] TRUE [employer] MET[employer] Kit 2-0 3-16 00:00: 00 Yes [id number] Use as directed for 4 times a day glucose check, ICD E11.9 [facility] [employer] [facility] MET[facility] Kit 2-0 3-16 00:00: 00 Yes [id number] Use as directed for 4 times a day glucose check, ICD E11.9 [facility] [employer] [facility] [facility] Kit 2-0 3-16 00:00: 00 Yes [id number] Use as directed for 4 times a day glucose check, ICD E11.9 [facility] [place] TRUE [employer] MET[employer] Kit 2-0 3-16 00:00: 00 Yes [id number] Use as directed for 4 times a day glucose check, ICD E11.9 [facility] [place] TRUE [employer] MET[employer] Kit 2-0 3-16 00:00: 00 Yes [id number] Use as directed for 4 times a day glucose check, ICD E11.9 [facility] [place] TRUE [employer] MET[employer] Kit 2-0 3-16 00:00: 00 Yes [id number] Use as directed for 4 times a day glucose check, ICD E11.9 [facility] [place] TRUE [employer] MET[employer] Kit 2-0 3-16 00:00: 00 Yes [id number] Use as directed for 4 times a day glucose check, ICD E11.9 [facility] [place] TRUE [employer] MET[employer] Kit 2-0 3-16 00:00: 00 Yes [id number] Use as directed for 4 times a day glucose check, ICD E11.9 [facility] [place] TRUE [employer] MET[employer] Kit 2-0 3-16 00:00: 00 Yes [id number] Use as directed for 4 times a day glucose check, ICD E11.9 [facility] [place] TRUE [employer] MET[employer] Kit 2022-0 3-16 00:00: 00 Yes [id number] Use as directed for 4 times a day glucose check, ICD E11.9 [facility] [place] TRUE [employer] MET[employer] Kit 2-0 3-16 00:00: 00 Yes [id number] Use as directed for 4 times a day glucose check, ICD E11.9 [facility] [employer] [facility] MET[facility] Kit 2-0 3-16 00:00: 00 Yes [id number] Use as directed for 4 times a day glucose check, ICD E11.9 [facility] [employer] [facility] MET[facility] Kit 2-0 3-16 00:00: 00 Yes [id number] Use as directed for 4 times a day glucose check, ICD E11.9 [facility] [place] TRUE [employer] MET[employer] Kit 2-0 3-16 00:00: 00 Yes [id number] Use as directed for 4 times a day glucose check, ICD E11.9 [facility] [place] TRUE [employer] MET[employer] Kit 2-0 3-16 00:00: 00 Yes [id number] Use as directed for 4 times a day glucose check, ICD E11.9 [facility] [place] TRUE [employer] MET[employer] Kit 2-0 3-16 00:00: 00 Yes [id number] Use as directed for 4 times a day glucose check, ICD E11.9 [facility] [place] TRUE [employer] MET[employer] Kit 2-0 3-16 00:00: 00 Yes [id number] Use as directed for 4 times a day glucose check, ICD E11.9 [facility] [place] TRUE [employer] MET[employer] Kit 2021-0 3-16 00:00: 00 Yes [id number] Use as directed for 4 times a day glucose check, ICD E11.9 [facility] [place] TRUE [employer] MET[employer] Kit 2-0 3-16 00:00: 00 Yes [id number] Use as directed for 4 times a day glucose check, ICD E11.9 [facility] [place] TRUE [employer] MET[employer] Kit 2-0 3-16 00:00: 00 Yes [id number] Use as directed for 4 times a day glucose check, ICD E11.9 [facility] [place] TRUE [employer] MET[employer] Kit 2-0 3-16 00:00: 00 Yes [id number] Use as directed for 4 times a day glucose check, ICD E11.9 [facility] [place] TRUE [employer] MET[employer] Kit 2022-0 3-16 00:00: 00 Yes [id number] Use as directed for 4 times a day glucose check, ICD E11.9 [facility] TRUE [employer] MET[employer] Kit 2-0 3-16 00:00: 00 Yes [id number] Use as directed for 4 times a day glucose check, ICD E11.9 [facility] [place] TRUE [employer] MET[employer] Kit 2-0 3-16 00:00: 00 Yes [id number] Use as directed for 4 times a day glucose check, ICD E11.9 [facility] [place] TRUE [employer] MET[employer] Kit 2-0 3-16 00:00: 00 Yes [id number] Use as directed for 4 times a day glucose check, ICD E11.9 [facility] [place] TRUE [employer] MET[employer] Kit 2-0 3-16 00:00: 00 Yes [id number] Use as directed for 4 times a day glucose check, ICD E11.9 [facility] [place] TRUE [employer] MET[employer] Kit 2-0 3-16 00:00: 00 Yes [id number] Use as directed for 4 times a day glucose check, ICD E11.9 [facility] [place] TRUE [employer] Kit 2-0 3-16 00:00: 00 Yes [id number] Use as directed for 4 times a day glucose check, ICD E11.9 [facility] [place] TRUE [employer] Kit 2-0 3-16 00:00: 00 Yes [id number] Use as directed for 4 times a day glucose check, ICD E11.9 [facility] [place] TRUE [employer] MET[employer] Kit 2-0 3-16 00:00: 00 Yes [id number] Use as directed for 4 times a day glucose check, ICD E11.9 [facility] [place] TRUE [employer] MET[employer] Kit 2-0 3-16 00:00: 00 Yes [id number] Use as directed for 4 times a day glucose check, ICD E11.9 [facility] [place] TRUE [employer] MET[employer] Kit 2022-0 3-16 00:00: 00 Yes [id number] Use as directed for 4 times a day glucose check, ICD E11.9 [facility] [place] TRUE [employer] MET[employer] Kit 2022-0 3-16 00:00: 00 Yes [id number] Use as directed for 4 times a day glucose check, ICD E11.9 [facility] [place] TRUE [employer] MET[employer] Kit 2021-0 3-16 00:00: 00 Yes [id number] Use as directed for 4 times a day glucose check, ICD E11.9 [facility] [place] TRUE [employer] MET[employer] Kit 2021-0 3-16 00:00: 00 Yes [id number] Use as directed for 4 times a day glucose check, ICD E11.9 [facility] [place] TRUE [employer] MET[employer] Kit 2021-0 3-16 00:00: 00 Yes [id number] Use as directed for 4 times a day glucose check, ICD E11.9 [facility] TRUE [employer] MET[employer] Kit 2021-0 3-16 00:00: 00 Yes [id number] Use as directed for 4 times a day glucose check, ICD E11.9 [facility] TRUE [employer] MET[employer] Kit 2021-0 316 00:00: 00 Yes [id number] Use as directed for 4 times a day glucose check, ICD E11.9 [facility] TRUE [employer] MET[employer] Kit 2021-0 316 00:00: 00 Yes [id number] Use as directed for 4 times a day glucose check, ICD E11.9 [facility] TRUE [employer] TEST STRIP strip 16 00:00: 00 09-02 00:00 :00 No [id number] Use as directed to check blood sugar QID DX: E11.9 [facility] SPIRONOLACT ONE 25 mg tablet 09-02 00:00: 00 Yes [id number] TAKE 1 TABLET BY MOUTH TWICE DAILY [facility] FUROSEMIDE 80 mg tablet 09-02 00:00: 00 Yes TAKE 1 TABLET BY MOUTH TWICE DAILY [facility] AMLODIPINE 5 mg tablet 09-02 00:00: 00 Yes [id number] 5mg TAKE 1 TABLET BY MOUTH DAILY [facility] SPIRONOLACT ONE 25 mg tablet 09-02 00:00: 00 Yes [id number] TAKE 1 TABLET BY MOUTH TWICE DAILY [facility] FUROSEMIDE 80 mg tablet 09-02 00:00: 00 Yes TAKE 1 TABLET BY MOUTH TWICE DAILY [facility] [place] AMLODIPINE 5 mg tablet 09-02 00:00: 00 Yes [id number] 5mg TAKE 1 TABLET BY MOUTH DAILY [facility] SPIRONOLACT ONE 25 mg tablet 09-02 00:00: 00 Yes [id number] TAKE 1 TABLET BY MOUTH TWICE DAILY [facility] [place] FUROSEMIDE 80 mg tablet 09-02 00:00: 00 Yes TAKE 1 TABLET BY MOUTH [facility] 09-02 00:00: 00 Yes [id number] 5mg TAKE 1 TABLET BY MOUTH DAILY [facility] SPIRONOLACT ONE 25 mg tablet 09-02 00:00: 00 Yes [id number] TAKE 1 TABLET BY MOUTH TWICE DAILY [facility] [place] FUROSEMIDE 80 mg tablet 09-02 00:00: 00 Yes TAKE 1 TABLET BY MOUTH TWICE DAILY [facility] [place] AMLODIPINE 5 mg tablet 09-02 00:00: 00 Yes [id number] 5mg TAKE 1 TABLET BY MOUTH DAILY [facility] SPIRONOLACT ONE 25 mg tablet 09-02 00:00: 00 Yes [id number] TAKE 1 TABLET BY MOUTH TWICE DAILY [facility] [place] FUROSEMIDE 80 mg tablet 09-02 00:00: 00 Yes TAKE 1 TABLET BY MOUTH TWICE DAILY [facility] [place] AMLODIPINE 5 mg tablet 09-02 00:00: 00 Yes [id number] 5mg TAKE 1 TABLET BY MOUTH DAILY [facility] [place] SPIRONOLACT ONE 25 mg tablet 09-02 00:00: 00 Yes [id number] TAKE 1 TABLET BY MOUTH TWICE DAILY [facility] [place] FUROSEMIDE 80 mg tablet 09-02 00:00: 00 Yes TAKE 1 TABLET BY MOUTH TWICE DAILY [facility] [place] AMLODIPINE 5 mg tablet 09-02 00:00: 00 Yes [id number] 5mg TAKE 1 TABLET BY MOUTH DAILY [facility] SPIRONOLACT ONE 25 mg tablet 09-02 00:00: 00 Yes [id number] TAKE 1 TABLET BY MOUTH TWICE DAILY [facility] FUROSEMIDE 80 mg tablet 09-02 00:00: 00 Yes TAKE 1 TABLET BY MOUTH TWICE DAILY [facility] AMLODIPINE 5 mg tablet 09-02 00:00: 00 Yes [id number] 5mg TAKE 1 TABLET BY MOUTH DAILY [facility] SPIRONOLACT ONE 25 mg tablet 09-02 00:00: 00 Yes [id number] TAKE 1 TABLET BY MOUTH TWICE DAILY [facility] FUROSEMIDE 80 mg tablet 09-02 00:00: 00 Yes TAKE 1 TABLET BY MOUTH TWICE DAILY [facility] AMLODIPINE 5 mg tablet 09-02 00:00: 00 Yes [id number] 5mg TAKE 1 TABLET BY MOUTH DAILY [facility] SPIRONOLACT ONE 25 mg tablet 09-02 00:00: 00 Yes [id number] TAKE 1 TABLET BY MOUTH TWICE DAILY [facility] FUROSEMIDE 80 mg tablet 09-02 00:00: 00 Yes TAKE 1 TABLET BY MOUTH TWICE DAILY [facility] AMLODIPINE 5 mg tablet 09-02 00:00: 00 Yes [id number] 5mg TAKE 1 TABLET BY MOUTH DAILY [facility] SPIRONOLACT ONE 25 mg tablet 09-02 00:00: 00 Yes [id number] TAKE 1 TABLET BY MOUTH TWICE DAILY [facility] FUROSEMIDE 80 mg tablet 09-02 00:00: 00 Yes TAKE 1 TABLET BY MOUTH TWICE DAILY [facility] AMLODIPINE 5 mg tablet 09-02 00:00: 00 Yes [id number] 5mg TAKE 1 TABLET BY MOUTH DAILY [facility] SPIRONOLACT ONE 25 mg tablet 09-02 00:00: 00 Yes [id number] TAKE 1 TABLET BY MOUTH TWICE DAILY [facility] FUROSEMIDE 80 mg tablet 09-02 00:00: 00 Yes TAKE 1 TABLET BY MOUTH TWICE DAILY [facility] AMLODIPINE 5 mg tablet 09-02 00:00: 00 Yes [id number] 5mg TAKE 1 TABLET BY MOUTH DAILY [facility] SPIRONOLACT ONE 25 mg tablet 09-02 00:00: 00 Yes [id number] TAKE 1 TABLET BY MOUTH TWICE DAILY [facility] FUROSEMIDE 80 mg tablet 09-02 00:00: 00 Yes TAKE 1 TABLET BY MOUTH TWICE DAILY [facility] AMLODIPINE 5 mg tablet 09-02 00:00: 00 Yes [id number] 5mg TAKE 1 TABLET BY MOUTH DAILY [facility] SPIRONOLACT ONE 25 mg tablet 09-02 00:00: 00 Yes [id number] TAKE 1 TABLET BY MOUTH TWICE DAILY [facility] FUROSEMIDE 80 mg tablet 09-02 00:00: 00 Yes TAKE 1 TABLET BY MOUTH TWICE DAILY [facility] AMLODIPINE 5 mg tablet 09-02 00:00: 00 Yes [id number] 5mg TAKE 1 TABLET BY MOUTH DAILY [facility] SPIRONOLACT ONE 25 mg tablet 09-02 00:00: 00 Yes [id number] TAKE 1 TABLET BY MOUTH TWICE DAILY [facility] FUROSEMIDE 80 mg tablet 09-02 00:00: 00 Yes TAKE 1 TABLET BY MOUTH TWICE DAILY [facility] AMLODIPINE 5 mg tablet 09-02 00:00: 00 Yes [id number] 5mg TAKE 1 TABLET BY MOUTH DAILY [facility] SPIRONOLACT ONE 25 mg tablet 09-02 00:00: 00 Yes [id number] TAKE 1 TABLET BY MOUTH TWICE DAILY [facility] FUROSEMIDE 80 mg tablet 09-02 00:00: 00 Yes TAKE 1 TABLET BY MOUTH TWICE DAILY [facility] AMLODIPINE 5 mg tablet 09-02 00:00: 00 Yes [id number] 5mg TAKE 1 TABLET BY MOUTH DAILY [facility] SPIRONOLACT ONE 25 mg tablet 09-02 00:00: 00 Yes [id number] TAKE 1 TABLET BY MOUTH TWICE DAILY [facility] FUROSEMIDE 80 mg tablet 09-02 00:00: 00 Yes TAKE 1 TABLET BY MOUTH TWICE DAILY [facility] AMLODIPINE 5 mg tablet 09-02 00:00: 00 Yes [id number] 5mg TAKE 1 TABLET BY MOUTH DAILY [facility] SPIRONOLACT ONE 25 mg tablet 09-02 00:00: 00 Yes [id number] TAKE 1 TABLET BY MOUTH TWICE DAILY [facility] FUROSEMIDE 80 mg tablet 09-02 00:00: 00 Yes TAKE 1 TABLET BY MOUTH TWICE DAILY [facility] AMLODIPINE 5 mg tablet 09-02 00:00: 00 Yes [id number] 5mg TAKE 1 TABLET BY MOUTH DAILY [facility] SPIRONOLACT ONE 25 mg tablet 09-02 00:00: 00 Yes [id number] TAKE 1 TABLET BY MOUTH TWICE DAILY [facility] FUROSEMIDE 80 mg tablet 09-02 00:00: 00 Yes TAKE 1 TABLET BY MOUTH TWICE DAILY [facility] AMLODIPINE 5 mg tablet 09-02 00:00: 00 Yes [id number] 5mg TAKE 1 TABLET BY MOUTH DAILY [facility] SPIRONOLACT ONE 25 mg tablet 09-02 00:00: 00 Yes [id number] TAKE 1 TABLET BY MOUTH TWICE DAILY [facility] FUROSEMIDE 80 mg tablet 09-02 00:00: 00 Yes TAKE 1 TABLET BY MOUTH TWICE DAILY [facility] AMLODIPINE 5 mg tablet 09-02 00:00: 00 Yes [id number] 5mg TAKE 1 TABLET BY MOUTH DAILY [facility] SPIRONOLACT ONE 25 mg tablet 09-02 00:00: 00 Yes [id number] TAKE 1 TABLET BY MOUTH TWICE DAILY [facility] FUROSEMIDE 80 mg tablet 09-02 00:00: 00 Yes TAKE 1 TABLET BY MOUTH TWICE DAILY [facility] AMLODIPINE 5 mg tablet 09-02 00:00: 00 Yes [id number] 5mg TAKE 1 TABLET BY MOUTH DAILY [facility] SPIRONOLACT ONE 25 mg tablet 09-02 00:00: 00 Yes [id number] TAKE 1 TABLET BY MOUTH TWICE DAILY [facility] FUROSEMIDE 80 mg tablet 09-02 00:00: 00 Yes TAKE 1 TABLET BY MOUTH TWICE DAILY [facility] AMLODIPINE 5 mg tablet 09-02 00:00: 00 Yes [id number] 5mg TAKE 1 TABLET BY MOUTH DAILY [facility] SPIRONOLACT ONE 25 mg tablet 09-02 00:00: 00 Yes [id number] TAKE 1 TABLET BY MOUTH TWICE DAILY [facility] FUROSEMIDE 80 mg tablet 09-02 00:00: 00 Yes TAKE 1 TABLET BY MOUTH TWICE DAILY [facility] AMLODIPINE 5 mg tablet 09-02 00:00: 00 Yes [id number] 5mg TAKE 1 TABLET BY MOUTH DAILY [facility] SPIRONOLACT ONE 25 mg tablet 09-02 00:00: 00 Yes [id number] TAKE 1 TABLET BY MOUTH TWICE DAILY [facility] FUROSEMIDE 80 mg tablet 09-02 00:00: 00 Yes TAKE 1 TABLET BY MOUTH TWICE DAILY [facility] AMLODIPINE 5 mg tablet 09-02 00:00: 00 Yes [id number] 5mg TAKE 1 TABLET BY MOUTH DAILY [facility] SPIRONOLACT ONE 25 mg tablet 09-02 00:00: 00 Yes [id number] TAKE 1 TABLET BY MOUTH TWICE DAILY [facility] FUROSEMIDE 80 mg tablet 09-02 00:00: 00 Yes TAKE 1 TABLET BY MOUTH TWICE DAILY [facility] AMLODIPINE 5 mg tablet 09-02 00:00: 00 Yes [id number] 5mg TAKE 1 TABLET BY MOUTH DAILY [facility] SPIRONOLACT ONE 25 mg tablet 09-02 00:00: 00 Yes [id number] TAKE 1 TABLET BY MOUTH TWICE DAILY [facility] FUROSEMIDE 80 mg tablet 09-02 00:00: 00 Yes TAKE 1 TABLET BY MOUTH TWICE DAILY [facility] AMLODIPINE 5 mg tablet 09-02 00:00: 00 Yes [id number] 5mg TAKE 1 TABLET BY MOUTH DAILY [facility] SPIRONOLACT ONE 25 mg tablet 09-02 00:00: 00 Yes [id number] TAKE 1 TABLET BY MOUTH TWICE DAILY [facility] FUROSEMIDE 80 mg tablet 09-02 00:00: 00 Yes TAKE 1 TABLET BY MOUTH TWICE DAILY [facility] AMLODIPINE 5 mg tablet 09-02 00:00: 00 Yes [id number] 5mg TAKE 1 TABLET BY MOUTH DAILY [facility] SPIRONOLACT ONE 25 mg tablet 09-02 00:00: 00 Yes [id number] TAKE 1 TABLET BY MOUTH TWICE DAILY [facility] FUROSEMIDE 80 mg tablet 09-02 00:00: 00 Yes TAKE 1 TABLET BY MOUTH TWICE DAILY [facility] AMLODIPINE 5 mg tablet 09-02 00:00: 00 Yes [id number] 5mg TAKE 1 TABLET BY MOUTH DAILY [facility] SPIRONOLACT ONE 25 mg tablet 09-02 00:00: 00 Yes [id number] TAKE 1 TABLET BY MOUTH TWICE DAILY [facility] FUROSEMIDE 80 mg tablet 09-02 00:00: 00 Yes TAKE 1 TABLET BY MOUTH TWICE DAILY [facility] AMLODIPINE 5 mg tablet 09-02 00:00: 00 Yes [id number] 5mg TAKE 1 TABLET BY MOUTH DAILY [facility] SPIRONOLACT ONE 25 mg tablet 09-02 00:00: 00 Yes [id number] TAKE 1 TABLET BY MOUTH TWICE DAILY [facility] FUROSEMIDE 80 mg tablet 09-02 00:00: 00 Yes TAKE 1 TABLET BY MOUTH TWICE DAILY [facility] AMLODIPINE 5 mg tablet 09-02 00:00: 00 Yes [id number] 5mg TAKE 1 TABLET BY MOUTH DAILY [facility] SPIRONOLACT ONE 25 mg tablet 09-02 00:00: 00 Yes [id number] TAKE 1 TABLET BY MOUTH TWICE DAILY [facility] FUROSEMIDE 80 mg tablet 09-02 00:00: 00 Yes TAKE 1 TABLET BY MOUTH TWICE DAILY [facility] SPIRONOLACT ONE 25 mg tablet 09-02 00:00: 00 Yes [id number] TAKE 1 TABLET BY MOUTH TWICE DAILY [facility] FUROSEMIDE 80 mg tablet 09-02 00:00: 00 Yes TAKE 1 TABLET BY MOUTH TWICE DAILY [facility] SPIRONOLACT ONE 25 mg tablet 09-02 00:00: 00 Yes [id number] TAKE 1 TABLET BY MOUTH TWICE DAILY [facility] FUROSEMIDE 80 mg tablet 09-02 00:00: 00 Yes TAKE 1 TABLET BY MOUTH TWICE DAILY [facility] SPIRONOLACT ONE 25 mg tablet 09-02 00:00: 00 Yes [id number] TAKE 1 TABLET BY MOUTH TWICE DAILY [facility] FUROSEMIDE 80 mg tablet 09-02 00:00: 00 Yes TAKE 1 TABLET BY MOUTH TWICE DAILY [facility] SPIRONOLACT ONE 25 mg tablet 09-02 00:00: 00 Yes [id number] TAKE 1 TABLET BY MOUTH TWICE DAILY [facility] FUROSEMIDE 80 mg tablet 09-02 00:00: 00 Yes TAKE 1 TABLET BY MOUTH TWICE DAILY [facility] SPIRONOLACT ONE 25 mg tablet 09-02 00:00: 00 Yes [id number] TAKE 1 TABLET BY MOUTH TWICE DAILY [facility] SPIRONOLACT ONE 25 mg tablet 09-02 00:00: 00 Yes [id number] TAKE 1 TABLET BY MOUTH TWICE DAILY [facility] SPIRONOLACT ONE 25 mg tablet 09-02 00:00: 00 Yes [id number] TAKE 1 TABLET BY MOUTH TWICE DAILY [facility] SPIRONOLACT ONE 25 mg tablet 09-02 00:00: 00 Yes [id number] TAKE 1 TABLET BY MOUTH TWICE DAILY [facility] SPIRONOLACT ONE 25 mg tablet 09-02 00:00: 00 Yes [id number] TAKE 1 TABLET BY MOUTH TWICE DAILY [facility] SPIRONOLACT ONE 25 mg tablet 09-02 00:00: 00 Yes [id number] TAKE 1 TABLET BY MOUTH TWICE DAILY [facility] SPIRONOLACT ONE 25 mg tablet 09-02 00:00: 00 Yes [id number] TAKE 1 TABLET BY MOUTH TWICE DAILY [facility] SPIRONOLACT ONE 25 mg tablet 09-02 00:00: 00 Yes [id number] TAKE 1 TABLET BY MOUTH TWICE DAILY [facility] SPIRONOLACT ONE 25 mg tablet 09-02 00:00: 00 Yes [id number] TAKE 1 TABLET BY MOUTH TWICE DAILY [facility] SPIRONOLACT ONE 25 mg tablet 09-02 00:00: 00 Yes [id number] TAKE 1 TABLET BY MOUTH TWICE DAILY [facility] SPIRONOLACT ONE 25 mg tablet 09-02 00:00: 00 Yes [id number] TAKE 1 TABLET BY MOUTH TWICE DAILY [facility] SPIRONOLACT ONE 25 mg tablet 09-02 00:00: 00 Yes [id number] TAKE 1 TABLET BY MOUTH TWICE DAILY [facility] SPIRONOLACT ONE 25 mg tablet 09-02 00:00: 00 Yes [id number] TAKE 1 TABLET BY MOUTH TWICE DAILY [facility] SPIRONOLACT ONE 25 mg tablet 09-02 00:00: 00 Yes [id number] TAKE 1 TABLET BY MOUTH TWICE DAILY [facility] SPIRONOLACT ONE 25 mg tablet 09-02 00:00: 00 Yes [id number] TAKE 1 TABLET BY MOUTH TWICE DAILY [facility] SPIRONOLACT ONE 25 mg tablet 09-02 00:00: 00 Yes [id number] TAKE 1 TABLET BY MOUTH TWICE DAILY [facility] SPIRONOLACT ONE 25 mg tablet 09-02 00:00: 00 Yes [id number] TAKE 1 TABLET BY MOUTH TWICE DAILY [facility] SPIRONOLACT ONE 25 mg tablet 09-02 00:00: 00 Yes [id number] TAKE 1 TABLET BY MOUTH TWICE DAILY [facility] SPIRONOLACT ONE 25 mg tablet 09-02 00:00: 00 Yes [id number] TAKE 1 TABLET BY MOUTH TWICE DAILY [facility] SPIRONOLACT ONE 25 mg tablet 09-02 00:00: 00 07-10 00:00 :00 No [id number] TAKE 1 TABLET BY MOUTH TWICE DAILY [facility] SPIRONOLACT ONE 25 mg tablet 09-02 00:00: 00 07-10 00:00 :00 No [id number] TAKE 1 TABLET BY MOUTH TWICE DAILY [facility] FUROSEMIDE 80 mg tablet 09-02 00:00: 00 06-11 00:00 :00 No TAKE 1 TABLET BY MOUTH TWICE DAILY [facility] FUROSEMIDE 80 mg tablet 09-02 00:00: 00 06-11 00:00 :00 No TAKE 1 TABLET BY MOUTH TWICE DAILY [facility] FUROSEMIDE 80 mg tablet 09-02 00:00: 00 06-11 00:00 :00 No TAKE 1 TABLET BY MOUTH TWICE DAILY [facility] AMLODIPINE 5 mg tablet 09-02 00:00: 00 05-30 00:00 :00 No [id number] 5mg TAKE 1 TABLET BY MOUTH DAILY [facility] venlafaxine XR 150 mg 24 hr capsule 08-15 00:00: 00 Yes [id number] TK 1 C PO QD [facility] venlafaxine XR 150 mg 24 hr capsule - 00:00: 00 Yes [id number] TK 1 C PO QD [facility] venlafaxine XR 150 mg 24 hr capsule 08-15 00:00: 00 Yes [id number] TK 1 C PO QD [facility] venlafaxine XR 150 mg 24 hr capsule 0 - 00:00: 00 Yes [id number] TK 1 C PO QD [facility] venlafaxine XR 150 mg 24 hr capsule 0 - 00:00: 00 Yes [id number] TK 1 C PO QD [facility] venlafaxine XR 150 mg 24 hr capsule 2021-0 - 00:00: 00 Yes [id number] TK 1 C PO QD [facility] venlafaxine XR 150 mg 24 hr capsule - 00:00: 00 Yes [id number] TK 1 C PO QD [facility] venlafaxine XR 150 mg 24 hr capsule 2-0 1-13 00:00: 00 Yes [id number] TK 1 C PO QD [facility] venlafaxine XR 150 mg 24 hr capsule 2-0 1-13 00:00: 00 Yes [id number] TK 1 C PO QD [facility] venlafaxine XR 150 mg 24 hr capsule 2-0 1-13 00:00: 00 Yes [id number] TK 1 C PO QD [facility] venlafaxine XR 150 mg 24 hr capsule 2-0 1-13 00:00: 00 Yes [id number] TK 1 C PO QD [facility] venlafaxine XR 150 mg 24 hr capsule 2-0 1-13 00:00: 00 Yes [id number] TK 1 C PO QD [facility] venlafaxine XR 150 mg 24 hr capsule 2-0 1-13 00:00: 00 Yes [id number] TK 1 C PO QD [facility] venlafaxine XR 150 mg 24 hr capsule 2-0 1-13 00:00: 00 Yes [id number] TK 1 C PO QD [facility] venlafaxine XR 150 mg 24 hr capsule 2-0 1-13 00:00: 00 Yes [id number] TK 1 C PO QD [facility] venlafaxine XR 150 mg 24 hr capsule 2-0 1-13 00:00: 00 Yes [id number] TK 1 C PO QD [facility] venlafaxine XR 150 mg 24 hr capsule 2-0 1-13 00:00: 00 Yes [id number] TK 1 C PO QD [facility] venlafaxine XR 150 mg 24 hr capsule 2-0 1-13 00:00: 00 Yes [id number] TK 1 C PO QD [facility] venlafaxine XR 150 mg 24 hr capsule 2-0 1-13 00:00: 00 Yes [id number] TK 1 C PO QD [facility] venlafaxine XR 150 mg 24 hr capsule 2-0 1-13 00:00: 00 Yes [id number] TK 1 C PO QD [facility] venlafaxine XR 150 mg 24 hr capsule 2022-0 1-13 00:00: 00 Yes [id number] TK 1 C PO QD [facility] venlafaxine XR 150 mg 24 hr capsule 2022-0 1-13 00:00: 00 Yes [id number] TK 1 C PO QD [facility] venlafaxine XR 150 mg 24 hr capsule 2-0 1-13 00:00: 00 Yes [id number] TK 1 C PO QD [facility] venlafaxine XR 150 mg 24 hr capsule 2-0 1-13 00:00: 00 Yes [id number] TK 1 C PO QD [facility] venlafaxine XR 150 mg 24 hr capsule 2-0 1-13 00:00: 00 Yes [id number] TK 1 C PO QD [facility] venlafaxine XR 150 mg 24 hr capsule 2-0 1-13 00:00: 00 Yes [id number] TK 1 C PO QD [facility] venlafaxine XR 150 mg 24 hr capsule 2-0 1-13 00:00: 00 Yes [id number] TK 1 C PO QD [facility] venlafaxine XR 150 mg 24 hr capsule 2-0 1-13 00:00: 00 Yes [id number] TK 1 C PO QD [facility] venlafaxine XR 150 mg 24 hr capsule 2-0 1-13 00:00: 00 Yes [id number] TK 1 C PO QD [facility] venlafaxine XR 150 mg 24 hr capsule 2-0 1-13 00:00: 00 Yes [id number] TK 1 C PO QD [facility] venlafaxine XR 150 mg 24 hr capsule 2-0 1-13 00:00: 00 Yes [id number] TK 1 C PO QD [facility] venlafaxine XR 150 mg 24 hr capsule 2022-0 1-13 00:00: 00 Yes [id number] TK 1 C PO QD [facility] venlafaxine XR 150 mg 24 hr capsule 2-0 1-13 00:00: 00 Yes [id number] TK 1 C PO QD [facility] venlafaxine XR 150 mg 24 hr capsule 2022-0 1-13 00:00: 00 Yes [id number] TK 1 C PO QD [facility] venlafaxine XR 150 mg 24 hr capsule 2022-0 1-13 00:00: 00 Yes [id number] TK 1 C PO QD [facility] venlafaxine XR 150 mg 24 hr capsule 2-0 1-13 00:00: 00 Yes [id number] TK 1 C PO QD [facility] venlafaxine XR 150 mg 24 hr capsule 2-0 1-13 00:00: 00 Yes [id number] TK 1 C PO QD [facility] venlafaxine XR 150 mg 24 hr capsule 2-0 1-13 00:00: 00 Yes [id number] TK 1 C PO QD [facility] venlafaxine XR 150 mg 24 hr capsule 2-0 1-13 00:00: 00 Yes [id number] TK 1 C PO QD [facility] venlafaxine XR 150 mg 24 hr capsule 2-0 1-13 00:00: 00 Yes [id number] TK 1 C PO QD [facility] venlafaxine XR 150 mg 24 hr capsule 2-0 1-13 00:00: 00 Yes [id number] TK 1 C PO QD [facility] venlafaxine XR 150 mg 24 hr capsule 2-0 1-13 00:00: 00 Yes [id number] TK 1 C PO QD [facility] venlafaxine XR 150 mg 24 hr capsule 2-0 1-13 00:00: 00 Yes [id number] TK 1 C PO QD [facility] venlafaxine XR 150 mg 24 hr capsule 2-0 1-13 00:00: 00 Yes [id number] TK 1 C PO QD [facility] venlafaxine XR 150 mg 24 hr capsule 2-0 1-13 00:00: 00 Yes [id number] TK 1 C PO QD [facility] venlafaxine XR 150 mg 24 hr capsule 2-0 1-13 00:00: 00 Yes [id number] TK 1 C PO QD [facility] venlafaxine XR 150 mg 24 hr capsule 2022-0 1-13 00:00: 00 Yes [id number] TK 1 C PO QD [facility] venlafaxine XR 150 mg 24 hr capsule 2-0 1-13 00:00: 00 Yes [id number] TK 1 C PO QD [facility] venlafaxine XR 150 mg 24 hr capsule 2-0 1-13 00:00: 00 Yes [id number] TK 1 C PO QD [facility] venlafaxine XR 150 mg 24 hr capsule 2-0 1-13 00:00: 00 Yes [id number] TK 1 C PO QD [facility] venlafaxine XR 150 mg 24 hr capsule 2-0 1-13 00:00: 00 Yes [id number] TK 1 C PO QD [facility] venlafaxine XR 150 mg 24 hr capsule 2-0 1-13 00:00: 00 Yes [id number] TK 1 C PO QD [facility] venlafaxine XR 150 mg 24 hr capsule 2-0 1-13 00:00: 00 Yes [id number] TK 1 C PO QD [facility] venlafaxine XR 150 mg 24 hr capsule 2-0 1-13 00:00: 00 Yes [id number] TK 1 C PO QD [facility] venlafaxine XR 150 mg 24 hr capsule 2-0 1-13 00:00: 00 Yes [id number] TK 1 C PO QD [facility] venlafaxine XR 150 mg 24 hr capsule 2-0 1-13 00:00: 00 Yes [id number] TK 1 C PO QD [facility] venlafaxine XR 150 mg 24 hr capsule 2-0 1-13 00:00: 00 Yes [id number] TK 1 C PO QD [facility] venlafaxine XR 150 mg 24 hr capsule 2-0 1-13 00:00: 00 Yes [id number] TK 1 C PO QD [facility] venlafaxine XR 150 mg 24 hr capsule 2-0 1-13 00:00: 00 Yes [id number] TK 1 C PO QD [facility] venlafaxine XR 150 mg 24 hr capsule 2022-0 1-13 00:00: 00 Yes [id number] TK 1 C PO QD [facility] venlafaxine XR 150 mg 24 hr capsule 2022-0 1-13 00:00: 00 Yes [id number] TK 1 C PO QD [facility] venlafaxine XR 150 mg 24 hr capsule 2022-0 1-13 00:00: 00 Yes [id number] TK 1 C PO QD [facility] venlafaxine XR 150 mg 24 hr capsule 2-0 1-13 00:00: 00 Yes [id number] TK 1 C PO QD [facility] venlafaxine XR 150 mg 24 hr capsule 2-0 1-13 00:00: 00 Yes [id number] TK 1 C PO QD [facility] venlafaxine XR 150 mg 24 hr capsule 2-0 1-13 00:00: 00 Yes [id number] TK 1 C PO QD [facility] venlafaxine XR 150 mg 24 hr capsule 2-0 1-13 00:00: 00 Yes [id number] TK 1 C PO QD [facility] venlafaxine XR 150 mg 24 hr capsule 2-0 1-13 00:00: 00 Yes [id number] TK 1 C PO QD [facility] venlafaxine XR 150 mg 24 hr capsule 2-0 1-13 00:00: 00 Yes [id number] TK 1 C PO QD [facility] venlafaxine XR 150 mg 24 hr capsule 2-0 1-13 00:00: 00 Yes [id number] TK 1 C PO QD [facility] venlafaxine XR 150 mg 24 hr capsule 2-0 1-13 00:00: 00 Yes [id number] TK 1 C PO QD [facility] venlafaxine XR 150 mg 24 hr capsule 2-0 1-13 00:00: 00 Yes [id number] TK 1 C PO QD [facility] venlafaxine XR 150 mg 24 hr capsule 2022-0 1-13 00:00: 00 Yes [id number] TK 1 C PO QD [facility] venlafaxine XR 150 mg 24 hr capsule 2-0 1-13 00:00: 00 Yes [id number] TK 1 C PO QD [facility] venlafaxine XR 150 mg 24 hr capsule 2022-0 1-13 00:00: 00 Yes [id number] TK 1 C PO QD [facility] venlafaxine XR 150 mg 24 hr capsule 2022-0 1-13 00:00: 00 Yes [id number] TK 1 C PO QD [facility] venlafaxine XR 150 mg 24 hr capsule 2-0 1-13 00:00: 00 Yes [id number] TK 1 C PO QD [facility] venlafaxine XR 150 mg 24 hr capsule 2-0 1-13 00:00: 00 Yes [id number] TK 1 C PO QD [facility] venlafaxine XR 150 mg 24 hr capsule 2-0 1-13 00:00: 00 Yes [id number] TK 1 C PO QD [facility] venlafaxine XR 150 mg 24 hr capsule 2-0 1-13 00:00: 00 Yes [id number] TK 1 C PO QD [facility] venlafaxine XR 150 mg 24 hr capsule 2-0 1-13 00:00: 00 Yes [id number] TK 1 C PO QD [facility] venlafaxine XR 150 mg 24 hr capsule 2-0 1-13 00:00: 00 Yes [id number] TK 1 C PO QD [facility] venlafaxine XR 150 mg 24 hr capsule 2-0 1-13 00:00: 00 Yes [id number] TK 1 C PO QD [facility] venlafaxine XR 150 mg 24 hr capsule 2-0 1-13 00:00: 00 Yes [id number] TK 1 C PO QD [facility] venlafaxine XR 150 mg 24 hr capsule 2-0 1-13 00:00: 00 Yes [id number] TK 1 C PO QD [facility] [facility] venlafaxine XR 150 mg 24 hr capsule 2022-0 1-13 00:00: 00 Yes [id number] TK 1 C PO QD [facility] venlafaxine XR 150 mg 24 hr capsule 2-0 1-13 00:00: 00 Yes [id number] TK 1 C PO QD [facility] venlafaxine XR 150 mg 24 hr capsule 2021-0 08-15 00:00: 00 Yes [id number] TK 1 C PO QD [facility] venlafaxine XR 150 mg 24 hr capsule 08-15 00:00: 00 09-10 00:00 :00 No [id number] TK 1 C PO QD [facility] venlafaxine XR 150 mg 24 hr capsule 08-15 00:00: 00 09-10 00:00 :00 No [id number] TK 1 C PO QD [facility] omega-3 fatty acids-vitam in E (FISH OIL) 1,000 mg capsule 2020-08 09:44: 23 Yes 1g Take 1 g by mouth daily. [facility] omega-3 fatty acids-vitam in E (FISH OIL) 1,000 mg capsule 2020-08 09:44: 23 Yes 1g Take 1 g by mouth daily. [facility] omega-3 fatty acids-vitam in E (FISH OIL) 1,000 mg capsule 2020-08 09:44: 23 Yes 1g Take 1 g by mouth daily. [facility] omega-3 fatty acids-vitam in E (FISH OIL) 1,000 mg capsule 2020-08 09:44: 23 Yes 1g Take 1 g by mouth daily. [facility] omega-3 fatty acids-vitam in E (FISH OIL) 1,000 mg capsule 2020-08 09:44: 23 Yes 1g Take 1 g by mouth daily. [facility] omega-3 fatty acids-vitam in E (FISH OIL) 1,000 mg capsule 2020-08 09:44: 23 Yes 1g Take 1 g by mouth daily. [facility] omega-3 fatty acids-vitam in E (FISH OIL) 1,000 mg capsule 2020-08 09:44: 23 Yes 1g Take 1 g by mouth daily. [facility] (FISH OIL[facility] 1,000 mg capsule 2020-08 09:44: 23 Yes 1g Take 1 g by mouth daily. [facility] omega-3 fatty acids-vitam in E (FISH OIL) 1,000 mg capsule 2020-08 09:44: 23 Yes 1g Take 1 g by mouth daily. [facility] omega-3 fatty acids-vitam in E (FISH OIL) 1,000 mg capsule 2020-08 09:44: 23 Yes 1g Take 1 g by mouth daily. [facility] omega-3 fatty acids-vitam in E (FISH OIL) 1,000 mg capsule 2020-08 09:44: 23 Yes 1g Take 1 g by mouth daily. [facility] omega-3 fatty acids-vitam in E (FISH OIL) 1,000 mg capsule 2020-08 09:44: 23 Yes 1g Take 1 g by mouth daily. [facility] omega-3 fatty acids-vitam in E (FISH OIL) 1,000 mg capsule 2020-08 09:44: 23 Yes 1g Take 1 g by mouth daily. [facility] omega-3 fatty acids-vitam in E (FISH OIL) 1,000 mg capsule 2020-08 09:44: 23 Yes 1g Take 1 g by mouth daily. [facility] omega-3 fatty acids-vitam in E (FISH OIL) 1,000 mg capsule 2020-08 09:44: 23 Yes 1g Take 1 g by mouth daily. [facility] omega-3 fatty acids-vitam in E (FISH OIL) 1,000 mg capsule 2020-08 09:44: 23 Yes 1g Take 1 g by mouth daily. [facility] omega-3 fatty acids-vitam in E (FISH OIL) 1,000 mg capsule 2020-08 09:44: 23 Yes 1g Take 1 g by mouth daily. [facility] omega-3 fatty acids-vitam in E (FISH OIL) 1,000 mg capsule 2020-08 09:44: 23 Yes 1g Take 1 g by mouth daily. [facility] omega-3 fatty acids-vitam in E (FISH OIL) 1,000 mg capsule 2020-08 09:44: 23 Yes 1g Take 1 g by mouth daily. [facility] omega-3 fatty acids-vitam in E (FISH OIL) 1,000 mg capsule 2020-08 09:44: 23 Yes 1g Take 1 g by mouth daily. [facility] omega-3 fatty acids-vitam in E (FISH OIL) 1,000 mg capsule 2020-08 09:44: 23 Yes 1g Take 1 g by mouth daily. [facility] omega-3 fatty acids-vitam in E (FISH OIL) 1,000 mg capsule 2020-08 09:44: 23 Yes 1g Take 1 g by mouth daily. [facility] omega-3 fatty acids-vitam in E (FISH OIL) 1,000 mg capsule 2020-08 09:44: 23 Yes 1g Take 1 g by mouth daily. [facility] omega-3 fatty acids-vitam in E (FISH OIL) 1,000 mg capsule 2020-08 09:44: 23 Yes 1g Take 1 g by mouth daily. [facility] omega-3 fatty acids-vitam in E (FISH OIL) 1,000 mg capsule 2020-08 09:44: 23 Yes 1g Take 1 g by mouth daily. [facility] omega-3 fatty acids-vitam in E (FISH OIL) 1,000 mg capsule 2020-08 09:44: 23 Yes 1g Take 1 g by mouth daily. [facility] omega-3 fatty acids-vitam in E (FISH OIL) 1,000 mg capsule 2020-08 09:44: 23 Yes 1g Take 1 g by mouth daily. [facility] (FISH OIL) 1,000 mg capsule 2020-08 09:44: 23 Yes 1g Take 1 g by mouth daily. [facility] omega-3 fatty acids-vitam in E (FISH OIL) 1,000 mg capsule 2020-08 09:44: 23 Yes 1g Take 1 g by mouth daily. [facility] omega-3 fatty acids-vitam in E (FISH OIL) 1,000 mg capsule 2020-08 09:44: 23 Yes 1g Take 1 g by mouth daily. [facility] omega-3 fatty acids-vitam in E (FISH OIL) 1,000 mg capsule 2020-08 09:44: 23 Yes 1g Take 1 g by mouth daily. [facility] omega-3 fatty acids-vitam in E (FISH OIL) 1,000 mg capsule 2020-08 09:44: 23 Yes 1g Take 1 g by mouth daily. [facility] omega-3 fatty acids-vitam in E (FISH OIL) 1,000 mg capsule 2020-08 09:44: 23 Yes 1g Take 1 g by mouth daily. [facility] omega-3 fatty acids-vitam in E (FISH OIL) 1,000 mg capsule 2020-08 09:44: 23 Yes 1g Take 1 g by mouth daily. [facility] omega-3 fatty acids-vitam in E (FISH OIL) 1,000 mg capsule 2020-08 09:44: 23 Yes 1g Take 1 g by mouth daily. [facility] omega-3 fatty acids-vitam in E (FISH OIL) 1,000 mg capsule 2020-08 09:44: 23 Yes 1g Take 1 g by mouth daily. [facility] omega-3 fatty acids-vitam in E (FISH OIL) 1,000 mg capsule 2020-08 09:44: 23 Yes 1g Take 1 g by mouth daily. [facility]am [facility] E (FISH OIL) 1,000 mg capsule 2020-08 09:44: 23 Yes 1g Take 1 g by mouth daily. [facility] omega-3 fatty acids-vitam in E (FISH OIL) 1,000 mg capsule 2020-08 09:44: 23 Yes 1g Take 1 g by mouth daily. [facility] omega-3 fatty acids-vitam in E (FISH OIL) 1,000 mg capsule 2020-08 09:44: 23 Yes 1g Take 1 g by mouth daily. [facility] omega-3 fatty acids-vitam in E (FISH OIL) 1,000 mg capsule 2020-08 09:44: 23 Yes 1g Take 1 g by mouth daily. [facility] omega-3 fatty acids-vitam in E (FISH OIL) 1,000 mg capsule 2020-08 09:44: 23 Yes 1g Take 1 g by mouth daily. [facility] omega-3 fatty acids-vitam in E (FISH OIL) 1,000 mg capsule 2020-08 09:44: 23 Yes 1g Take 1 g by mouth daily. [facility] omega-3 fatty acids-vitam in E (FISH OIL) 1,000 mg capsule 2020-08 09:44: 23 Yes 1g Take 1 g by mouth daily. [facility] omega-3 fatty acids-vitam in E (FISH OIL) 1,000 mg capsule 2020-08 09:44: 23 Yes 1g Take 1 g by mouth daily. [facility] omega-3 fatty acids-vitam in E (FISH OIL) 1,000 mg capsule 2020-08 09:44: 23 Yes 1g Take 1 g by mouth daily. [facility] omega-3 fatty acids-vitam in E (FISH OIL) 1,000 mg capsule 2020-08 09:44: 23 Yes 1g Take 1 g by mouth daily. [facility] omega-3 fatty acids-vitam in E (FISH OIL) 1,000 mg capsule 2020-08 09:44: 23 Yes 1g Take 1 g by mouth daily. [facility] omega-3 fatty acids-vitam in E (FISH OIL) 1,000 mg capsule 2020-08 09:44: 23 Yes 1g Take 1 g by mouth daily. [facility] omega-3 fatty acids-vitam in E (FISH OIL) 1,000 mg capsule 2020-08 09:44: 23 Yes 1g Take 1 g by mouth daily. [facility] omega-3 fatty acids-vitam in E (FISH OIL) 1,000 mg capsule 2020-08 09:44: 23 Yes 1g Take 1 g by mouth daily. [facility] omega-3 fatty acids-vitam in E (FISH OIL) 1,000 mg capsule 2020-08 09:44: 23 Yes 1g Take 1 g by mouth daily. [facility] omega-3 fatty acids-vitam in E (FISH OIL) 1,000 mg capsule 2020-08 09:44: 23 Yes 1g Take 1 g by mouth daily. [facility] omega-3 fatty acids-vitam in E (FISH OIL) 1,000 mg capsule 2020-08 09:44: 23 Yes 1g Take 1 g by mouth daily. [facility] omega-3 fatty acids-vitam in E (FISH OIL) 1,000 mg capsule 2020-08 09:44: 23 Yes 1g Take 1 g by mouth daily. [facility] omega-3 fatty acids-vitam in E (FISH OIL) 1,000 mg capsule 2020-08 09:44: 23 Yes 1g Take 1 g by mouth daily. [facility] omega-3 fatty acids-vitam in E (FISH OIL) 1,000 mg capsule 2020-08 09:44: 23 Yes 1g Take 1 g by mouth daily. [facility] omega-3 fatty acids-vitam in E (FISH OIL) 1,000 mg capsule 2020-08 09:44: 23 Yes 1g Take 1 g by mouth daily. [facility] omega-3 fatty acids-vitam in E (FISH OIL) 1,000 mg capsule 2020-08 09:44: 23 Yes 1g Take 1 g by mouth daily. [facility] omega-3 fatty acids-vitam in E (FISH OIL) 1,000 mg capsule 2020-08 09:44: 23 Yes 1g Take 1 g by mouth daily. [facility] E (FISH OIL) 1,000 mg capsule 2020-08 09:44: 23 Yes 1g Take 1 g by mouth daily. [facility] omega-3 fatty acids-vitam in E (FISH OIL) 1,000 mg capsule 2020-08 09:44: 23 Yes 1g Take 1 g by mouth daily. [facility] omega-3 fatty acids-vitam in E (FISH OIL) 1,000 mg capsule 2020-08 09:44: 23 Yes 1g Take 1 g by mouth daily. [facility] omega-3 fatty acids-vitam in E (FISH OIL) 1,000 mg capsule 2020-08 09:44: 23 Yes 1g Take 1 g by mouth daily. [facility]am [facility] E (FISH OIL) 1,000 mg capsule 2020-08 09:44: 23 Yes 1g Take 1 g by mouth daily. [facility] omega-3 fatty acids-vitam in E (FISH OIL) 1,000 mg capsule 2020-08 09:44: 23 Yes 1g Take 1 g by mouth daily. [facility] omega-3 fatty acids-vitam in E (FISH OIL) 1,000 mg capsule 2020-08 09:44: 23 Yes 1g Take 1 g by mouth daily. [facility] omega-3 fatty acids-vitam in E (FISH OIL) 1,000 mg capsule 2020-08 09:44: 23 Yes 1g Take 1 g by mouth daily. [facility] omega-3 fatty acids-vitam in E (FISH OIL) 1,000 mg capsule 2020-08 09:44: 23 Yes 1g Take 1 g by mouth daily. [facility] omega-3 fatty acids-vitam in E (FISH OIL) 1,000 mg capsule 2020-08 09:44: 23 Yes 1g Take 1 g by mouth daily. [facility] omega-3 fatty acids-vitam in E (FISH OIL) 1,000 mg capsule 2020-08 09:44: 23 Yes 1g Take 1 g by mouth daily. [facility] omega-3 fatty acids-vitam in E (FISH OIL) 1,000 mg capsule 2020-08 09:44: 23 Yes 1g Take 1 g by mouth daily. [facility] omega-3 fatty acids-vitam in E (FISH OIL) 1,000 mg capsule 2020-08 09:44: 23 Yes 1g Take 1 g by mouth daily. [facility] omega-3 fatty acids-vitam in E (FISH OIL) 1,000 mg capsule 2020-08 09:44: 23 Yes 1g Take 1 g by mouth daily. [facility] omega-3 fatty acids-vitam in E (FISH OIL) 1,000 mg capsule 2020-08 09:44: 23 Yes 1g Take 1 g by mouth daily. [facility] omega-3 fatty acids-vitam in E (FISH OIL) 1,000 mg capsule 2020-08 09:44: 23 Yes 1g Take 1 g by mouth daily. [facility] omega-3 fatty acids-vitam in E (FISH OIL) 1,000 mg capsule 2020-08 09:44: 23 Yes 1g Take 1 g by mouth daily. [facility] omega-3 fatty acids-vitam in E (FISH OIL) 1,000 mg capsule 2020-08 09:44: 23 Yes 1g Take 1 g by mouth daily. [facility] omega-3 fatty acids-vitam in E (FISH OIL) 1,000 mg capsule 2020-08 09:44: 23 Yes 1g Take 1 g by mouth daily. [facility] omega-3 fatty acids-vitam in E (FISH OIL) 1,000 mg capsule 2020-08 09:44: 23 Yes 1g Take 1 g by mouth daily. [facility] omega-3 fatty acids-vitam in E (FISH OIL) 1,000 mg capsule 2020-08 09:44: 23 Yes 1g Take 1 g by mouth daily. [facility] omega-3 fatty acids-vitam in E (FISH OIL) 1,000 mg capsule 2020-08 09:44: 23 Yes 1g Take 1 g by mouth daily. [facility] omega-3 fatty acids-vitam in E (FISH OIL) 1,000 mg capsule 2020-08 09:44: 23 Yes 1g Take 1 g by mouth daily. [facility] omega-3 fatty acids-vitam in E (FISH OIL) 1,000 mg capsule 2020-08 09:44: 23 Yes 1g Take 1 g by mouth daily. [facility] omega-3 fatty acids-vitam in E (FISH OIL) 1,000 mg capsule 2020-08 09:44: 23 Yes 1g Take 1 g by mouth daily. [facility] omega-3 fatty acids-vitam in E (FISH OIL) 1,000 mg capsule 2020-08 09:44: 23 Yes 1g Take 1 g by mouth daily. [facility] omega-3 fatty acids-vitam in E (FISH OIL) 1,000 mg capsule 2020-08 09:44: 23 Yes 1g Take 1 g by mouth daily. [facility] omega-3 fatty acids-vitam in E (FISH OIL) 1,000 mg capsule 2020-08 09:44: 23 Yes 1g Take 1 g by mouth daily. [facility] omega-3 fatty acids-vitam in E (FISH OIL) 1,000 mg capsule 2020-08 09:44: 23 Yes 1g Take 1 g by mouth daily. [facility] omega-3 fatty acids-vitam in E (FISH OIL) 1,000 mg capsule 2020-08 09:44: 23 Yes 1g Take 1 g by mouth daily. [facility] omega-3 fatty acids-vitam in E (FISH OIL) 1,000 mg capsule 2020-08 09:44: 23 Yes 1g Take 1 g by mouth daily. [facility] omega-3 fatty acids-vitam in E (FISH OIL) 1,000 mg capsule 2020-08 09:44: 23 Yes 1g Take 1 g by mouth daily. [facility] omega-3 fatty acids-vitam in E (FISH OIL) 1,000 mg capsule 2020-08 09:44: 23 Yes 1g Take 1 g by mouth daily. [facility] omega-3 fatty acids-vitam in E (FISH OIL) 1,000 mg capsule 2020-08 09:44: 23 Yes 1g Take 1 g by mouth daily. [facility] omega-3 fatty acids-vitam in E (FISH OIL) 1,000 mg capsule 2020-08 09:44: 23 Yes 1g Take 1 g by mouth daily. [facility] omega-3 fatty acids-vitam in E (FISH OIL) 1,000 mg capsule 2020-08 09:44: 23 Yes 1g Take 1 g by mouth daily. [facility] omega-3 fatty acids-vitam in E (FISH OIL) 1,000 mg capsule 2020-08 09:44: 23 Yes 1g Take 1 g by mouth daily. [facility] omega-3 fatty acids-vitam in E (FISH OIL) 1,000 mg capsule 2020-08 09:44: 23 Yes 1g Take 1 g by mouth daily. [facility] omega-3 fatty acids-vitam in E (FISH OIL) 1,000 mg capsule 2020-08 09:44: 23 Yes 1g Take 1 g by mouth daily. [facility] omega-3 fatty acids-vitam in E (FISH OIL) 1,000 mg capsule 2020-08 09:44: 23 Yes 1g Take 1 g by mouth daily. [facility] omega-3 fatty acids-vitam in E (FISH OIL) 1,000 mg capsule 2020-08 09:44: 23 Yes 1g Take 1 g by mouth daily. [facility] omega-3 fatty acids-vitam in E (FISH OIL) 1,000 mg capsule 2020-08 09:44: 23 Yes 1g Take 1 g by mouth daily. [facility] omega-3 fatty acids-vitam in E (FISH OIL) 1,000 mg capsule 2020-08 09:44: 23 Yes 1g Take 1 g by mouth daily. [facility] omega-3 fatty acids-vitam in E (FISH OIL) 1,000 mg capsule 2020-08 09:44: 23 Yes 1g Take 1 g by mouth daily. [facility] omega-3 fatty acids-vitam in E (FISH OIL) 1,000 mg capsule 2020-08 09:44: 23 Yes 1g Take 1 g by mouth daily. [facility] omega-3 fatty acids-vitam in E (FISH OIL) 1,000 mg capsule 2020-08 09:44: 23 Yes 1g Take 1 g by mouth daily. [facility] omega-3 fatty acids-vitam in E (FISH OIL) 1,000 mg capsule 2020-08 09:44: 23 Yes 1g Take 1 g by mouth daily. [facility] omega-3 fatty acids-vitam in E (FISH OIL) 1,000 mg capsule 2020-08 09:44: 23 Yes 1g Take 1 g by mouth daily. [facility] omega-3 fatty acids-vitam in E (FISH OIL) 1,000 mg capsule 2020-08 09:44: 23 Yes 1g Take 1 g by mouth daily. [facility] omega-3 fatty acids-vitam in E (FISH OIL) 1,000 mg capsule 2020-08 09:44: 23 Yes 1g Take 1 g by mouth daily. [facility] omega-3 fatty acids-vitam in E (FISH OIL) 1,000 mg capsule 2020-08 09:44: 23 Yes 1g Take 1 g by mouth daily. [facility] omega-3 fatty acids-vitam in E (FISH OIL) 1,000 mg capsule 2020-08 09:44: 23 Yes 1g Take 1 g by mouth daily. [facility] omega-3 fatty acids-vitam in E (FISH OIL) 1,000 mg capsule 2020-08 09:44: 23 Yes 1g Take 1 g by mouth daily. [facility] omega-3 fatty acids-vitam in E (FISH OIL) 1,000 mg capsule 2020-08 09:44: 23 Yes 1g Take 1 g by mouth daily. [facility] omega-3 fatty acids-vitam in E (FISH OIL) 1,000 mg capsule 2020-08 09:44: 23 Yes 1g Take 1 g by mouth daily. [facility] omega-3 fatty acids-vitam in E (FISH OIL) 1,000 mg capsule 2020-08 09:44: 23 Yes 1g Take 1 g by mouth daily. [facility] omega-3 fatty acids-vitam in E (FISH OIL) 1,000 mg capsule 2020-08 09:44: 23 Yes 1g Take 1 g by mouth daily. [facility] omega-3 fatty acids-vitam in E (FISH OIL) 1,000 mg capsule 2020-08 09:44: 23 Yes 1g Take 1 g by mouth daily. [facility] omega-3 fatty acids-vitam in E (FISH OIL) 1,000 mg capsule 2020-08 09:44: 23 Yes 1g Take 1 g by mouth daily. [facility] omega-3 fatty acids-vitam in E (FISH OIL) 1,000 mg capsule 2020-08 09:44: 23 Yes 1g Take 1 g by mouth daily. [facility] omega-3 fatty acids-vitam in E (FISH OIL) 1,000 mg capsule 2020-08 09:44: 23 Yes 1g Take 1 g by mouth daily. [facility] omega-3 fatty acids-vitam in E (FISH OIL) 1,000 mg capsule 2020-08 09:44: 23 Yes 1g Take 1 g by mouth daily. [facility] omega-3 fatty acids-vitam in E (FISH OIL) 1,000 mg capsule 2020-08 09:44: 23 Yes 1g Take 1 g by mouth daily. [facility] omega-3 fatty acids-vitam in E (FISH OIL) 1,000 mg capsule 2020-08 09:44: 23 Yes 1g Take 1 g by mouth daily. [facility] omega-3 fatty acids-vitam in E (FISH OIL) 1,000 mg capsule 2020-08 09:44: 23 Yes 1g Take 1 g by mouth daily. [facility] omega-3 fatty acids-vitam in E (FISH OIL) 1,000 mg capsule 2020-08 09:44: 23 Yes 1g Take 1 g by mouth daily. [facility] omega-3 fatty acids-vitam in E (FISH OIL) 1,000 mg capsule 2020-08 09:44: 23 Yes 1g Take 1 g by mouth daily. [facility] omega-3 fatty acids-vitam in E (FISH OIL) 1,000 mg capsule 2020-08 09:44: 23 Yes 1g Take 1 g by mouth daily. [facility] omega-3 fatty acids-vitam in E (FISH OIL) 1,000 mg capsule 2020-08 09:44: 23 Yes 1g Take 1 g by mouth daily. [facility] omega-3 fatty acids-vitam in E (FISH OIL) 1,000 mg capsule 2020-08 09:44: 23 Yes 1g Take 1 g by mouth daily. [facility] omega-3 fatty acids-vitam in E (FISH OIL) 1,000 mg capsule 2020-08 09:44: 23 Yes 1g Take 1 g by mouth daily. [facility] omega-3 fatty acids-vitam in E (FISH OIL) 1,000 mg capsule 2020-08 09:44: 23 Yes 1g Take 1 g by mouth daily. [facility] omega-3 fatty acids-vitam in E (FISH OIL) 1,000 mg capsule 2020-08 09:44: 23 Yes 1g Take 1 g by mouth daily. [facility] omega-3 fatty acids-vitam in E (FISH OIL) 1,000 mg capsule 2020-08 09:44: 23 Yes 1g Take 1 g by mouth daily. [facility] omega-3 fatty acids-vitam in E (FISH OIL) 1,000 mg capsule 2020-08 09:44: 23 Yes 1g Take 1 g by mouth daily. [facility] omega-3 fatty acids-vitam in E (FISH OIL) 1,000 mg capsule 2020-08 09:44: 23 Yes 1g Take 1 g by mouth daily. [facility] omega-3 fatty acids-vitam in E (FISH OIL) 1,000 mg capsule 2020-08 09:44: 23 Yes 1g Take 1 g by mouth daily. [facility] omega-3 fatty acids-vitam in E (FISH OIL) 1,000 mg capsule 2020-08 09:44: 23 Yes 1g Take 1 g by mouth daily. [facility] omega-3 fatty acids-vitam in E (FISH OIL) 1,000 mg capsule 2020-08 09:44: 23 Yes 1g Take 1 g by mouth daily. [facility] omega-3 fatty acids-vitam in E (FISH OIL) 1,000 mg capsule 2020-08 09:44: 23 Yes 1g Take 1 g by mouth daily. [facility] omega-3 fatty acids-vitam in E (FISH OIL) 1,000 mg capsule 2020-08 09:44: 23 Yes 1g Take 1 g by mouth daily. [facility] omega-3 fatty acids-vitam in E (FISH OIL) 1,000 mg capsule 2020-08 09:44: 23 Yes 1g Take 1 g by mouth daily. [facility] omega-3 fatty acids-vitam in E (FISH OIL) 1,000 mg capsule 2020-08 09:44: 23 Yes 1g Take 1 g by mouth daily. [facility] omega-3 fatty acids-vitam in E (FISH OIL) 1,000 mg capsule 2020-08 09:44: 23 Yes 1g Take 1 g by mouth daily. [facility] omega-3 fatty acids-vitam in E (FISH OIL) 1,000 mg capsule 2020-08 09:44: 23 Yes 1g Take 1 g by mouth daily. [facility] omega-3 fatty acids-vitam in E (FISH OIL) 1,000 mg capsule 2020-08 09:44: 23 Yes 1g Take 1 g by mouth daily. [facility] omega-3 fatty acids-vitam in E (FISH OIL) 1,000 mg capsule 2020-08 09:44: 23 Yes 1g Take 1 g by mouth daily. [facility] [facility] omega-3 fatty acids-vitam in E (FISH OIL) 1,000 mg capsule 2020-08 09:44: 23 Yes 1g Take 1 g by mouth daily. [facility] ity [facility] omega-3 fatty acids-vitam in E (FISH OIL) 1,000 mg capsule 2020-08 09:44: 23 Yes 1g Take 1 g by mouth daily. [facility] ity [facility] omega-3 fatty acids-vitam in E (FISH OIL) 1,000 mg capsule 2020-08 09:44: 23 Yes 1g Take 1 g by mouth daily. [facility] omega-3 fatty acids-vitam in E (FISH OIL) 1,000 mg capsule 2020-08 09:44: 23 Yes 1g Take 1 g by mouth daily. [facility] omega-3 fatty acids-vitam in E (FISH OIL) 1,000 mg capsule 2020-08 09:44: 23 Yes 1g Take 1 g by mouth daily. [facility] omega-3 fatty acids-vitam in E (FISH OIL) 1,000 mg capsule 2020-08 09:44: 23 Yes 1g Take 1 g by mouth daily. [facility] omega-3 fatty acids-vitam in E (FISH OIL) 1,000 mg capsule 2020-08 09:44: 23 Yes 1g Take 1 g by mouth daily. [facility] ity [facility] omega-3 fatty acids-vitam in E (FISH OIL) 1,000 mg capsule 2020-08 09:44: 23 Yes 1g Take 1 g by mouth daily. [facility] ity [facility] omega-3 fatty acids-vitam in E (FISH OIL) 1,000 mg capsule 2020-08 09:44: 23 Yes 1g Take 1 g by mouth daily. [facility] omega-3 fatty acids-vitam in E (FISH OIL) 1,000 mg capsule 2020-08 09:44: 23 Yes 1g Take 1 g by mouth daily. [facility] omega-3 fatty acids-vitam in E (FISH OIL) 1,000 mg capsule 2020-08 09:44: 23 Yes 1g Take 1 g by mouth daily. [facility] omega-3 fatty acids-vitam in E (FISH OIL) 1,000 mg capsule 2020-08 09:44: 23 Yes 1g Take 1 g by mouth daily. [facility] omega-3 fatty acids-vitam in E (FISH OIL) 1,000 mg capsule 2020-08 09:44: 23 Yes 1g Take 1 g by mouth daily. [facility] omega-3 fatty acids-vitam in E (FISH OIL) 1,000 mg capsule 2020-08 09:44: 23 Yes 1g Take 1 g by mouth daily. [facility] omega-3 fatty acids-vitam in E (FISH OIL) 1,000 mg capsule 2020-08 09:44: 23 Yes 1g Take 1 g by mouth daily. [facility] omega-3 fatty acids-vitam in E (FISH OIL) 1,000 mg capsule 2020-08 09:44: 23 Yes 1g Take 1 g by mouth daily. [facility] omega-3 fatty acids-vitam in E (FISH OIL) 1,000 mg capsule 2020-08 09:44: 23 Yes 1g Take 1 g by mouth daily. [facility] omega-3 fatty acids-vitam in E (FISH OIL) 1,000 mg capsule 2020-08 09:44: 23 Yes 1g Take 1 g by mouth daily. [facility] omega-3 fatty acids-vitam in E (FISH OIL) 1,000 mg capsule 2020-08 09:44: 23 Yes 1g Take 1 g by mouth daily. [facility] omega-3 fatty acids-vitam in E (FISH OIL) 1,000 mg capsule 2020-08 09:44: 23 Yes 1g Take 1 g by mouth daily. [facility] omega-3 fatty acids-vitam in E (FISH OIL) 1,000 mg capsule 2020-08 09:44: 23 Yes 1g Take 1 g by mouth daily. [facility] it[facility] omega-3 fatty acids-vitam in E (FISH OIL) 1,000 mg capsule 2020-08 09:44: 23 Yes 1g Take 1 g by mouth daily. [facility] omega-3 fatty acids-vitam in E (FISH OIL) 1,000 mg capsule 2020-08 09:44: 23 Yes 1g Take 1 g by mouth daily. [facility] it[facility] omega-3 fatty acids-vitam in E (FISH OIL) 1,000 mg capsule 2020-08 09:44: 23 Yes 1g Take 1 g by mouth daily. [facility] omega-3 fatty acids-vitam in E (FISH OIL) 1,000 mg capsule 2020-08 09:44: 23 Yes 1g Take 1 g by mouth daily. [facility] omega-3 fatty acids-vitam in E (FISH OIL) 1,000 mg capsule 2020-08 09:44: 23 Yes 1g Take 1 g by mouth daily. [facility] omega-3 fatty acids-vitam in E (FISH OIL) 1,000 mg capsule 2020-08 09:44: 23 Yes 1g Take 1 g by mouth daily. [facility] omega-3 fatty acids-vitam in E (FISH OIL) 1,000 mg capsule 2020-08 09:44: 23 Yes 1g Take 1 g by mouth daily. [facility] omega-3 fatty acids-vitam in E (FISH OIL) 1,000 mg capsule 2020-08 09:44: 23 Yes 1g Take 1 g by mouth daily. [facility] it[facility] omega-3 fatty acids-vitam in E (FISH OIL) 1,000 mg capsule 2020-08 09:44: 23 Yes 1g Take 1 g by mouth daily. [facility] omega-3 fatty acids-vitam in E (FISH OIL) 1,000 mg capsule 2020-08 09:44: 23 Yes 1g Take 1 g by mouth daily. [facility] omega-3 fatty acids-vitam in E (FISH OIL) 1,000 mg capsule 2020-08 09:44: 23 Yes 1g Take 1 g by mouth daily. [facility] it[facility] omega-3 fatty acids-vitam in E (FISH OIL) 1,000 mg capsule 2020-08 09:44: 23 Yes 1g Take 1 g by mouth daily. [facility] it[facility] omega-3 fatty acids-vitam in E (FISH OIL) 1,000 mg capsule 2020-08 09:44: 23 Yes 1g Take 1 g by mouth daily. [facility] omega-3 fatty acids-vitam in E (FISH OIL) 1,000 mg capsule 2020-08 09:44: 23 Yes 1g Take 1 g by mouth daily. [facility] omega-3 fatty acids-vitam in E (FISH OIL) 1,000 mg capsule 2020-08 09:44: 23 Yes 1g Take 1 g by mouth daily. [facility] omega-3 fatty acids-vitam in E (FISH OIL) 1,000 mg capsule 2020-08 09:44: 23 Yes 1g Take 1 g by mouth daily. [facility] omega-3 fatty acids-vitam in E (FISH OIL) 1,000 mg capsule 2020-08 09:44: 23 Yes 1g Take 1 g by mouth daily. [facility] omega-3 fatty acids-vitam in E (FISH OIL) 1,000 mg capsule 2020-08 09:44: 23 Yes 1g Take 1 g by mouth daily. [facility] (FISH OIL) 1,000 mg capsule 2020-08 09:44: 23 Yes 1g Take 1 g by mouth daily. [facility] it[facility] omega-3 fatty acids-vitam in E (FISH OIL) 1,000 mg capsule 2020-08 09:44: 23 Yes 1g Take 1 g by mouth daily. [facility] it[facility] omega-3 fatty acids-vitam in E (FISH OIL) 1,000 mg capsule 2020-08 09:44: 23 Yes 1g Take 1 g by mouth daily. [facility] omega-3 fatty acids-vitam in E (FISH OIL) 1,000 mg capsule 2020-08 09:44: 23 Yes 1g Take 1 g by mouth daily. [facility] omega-3 fatty acids-vitam in E (FISH OIL) 1,000 mg capsule 2020-08 09:44: 23 Yes 1g Take 1 g by mouth daily. [facility] it[facility] omega-3 fatty acids-vitam in E (FISH OIL) 1,000 mg capsule 2020-08 09:44: 23 Yes 1g Take 1 g by mouth daily. [facility] omega-3 fatty acids-vitam in E (FISH OIL) 1,000 mg capsule 2020-08 09:44: 23 Yes 1g Take 1 g by mouth daily. [facility] omega-3 fatty acids-vitam in E (FISH OIL) 1,000 mg capsule 2020-08 09:44: 23 Yes 1g Take 1 g by mouth daily. [facility] omega-3 fatty acids-vitam in E (FISH OIL) 1,000 mg capsule 2020-08 09:44: 23 Yes 1g Take 1 g by mouth daily. [facility] omega-3 fatty acids-vitam in E (FISH OIL) 1,000 mg capsule 2020-08 09:44: 23 Yes 1g Take 1 g by mouth daily. [facility] omega-3 fatty acids-vitam in E (FISH OIL) 1,000 mg capsule 2020-08 09:44: 23 Yes 1g Take 1 g by mouth daily. [facility] omega-3 fatty acids-vitam in E (FISH OIL) 1,000 mg capsule 2020-08 09:44: 23 Yes 1g Take 1 g by mouth daily. [facility] omega-3 fatty acids-vitam in E (FISH OIL) 1,000 mg capsule 2020-08 09:44: 23 Yes 1g Take 1 g by mouth daily. [facility] omega-3 fatty acids-vitam in E (FISH OIL) 1,000 mg capsule 2020-08 09:44: 23 Yes 1g Take 1 g by mouth daily. [facility] it[facility] omega-3 fatty acids-vitam in E (FISH OIL) 1,000 mg capsule 2020-08 09:44: 23 Yes 1g Take 1 g by mouth daily. [facility] it[facility] omega-3 fatty acids-vitam in E (FISH OIL) 1,000 mg capsule 2020-08 09:44: 23 Yes 1g Take 1 g by mouth daily. [facility] omega-3 fatty acids-vitam in E (FISH OIL) 1,000 mg capsule 2020-08 09:44: 23 Yes 1g Take 1 g by mouth daily. [facility] omega-3 fatty acids-vitam in E (FISH OIL) 1,000 mg capsule 2020-08 09:44: 23 Yes 1g Take 1 g by mouth daily. [facility] omega-3 fatty acids-vitam in E (FISH OIL) 1,000 mg capsule 2020-08 09:44: 23 Yes 1g Take 1 g by mouth daily. [facility] omega-3 fatty acids-vitam in E (FISH OIL) 1,000 mg capsule 2020-08 09:44: 23 Yes 1g Take 1 g by mouth daily. [facility] omega-3 fatty acids-vitam in E (FISH OIL) 1,000 mg capsule 2020-08 09:44: 23 Yes 1g Take 1 g by mouth daily. [facility] omega-3 fatty acids-vitam in E (FISH OIL) 1,000 mg capsule 2020-08 09:44: 23 Yes 1g Take 1 g by mouth daily. [facility] it[facility] omega-3 fatty acids-vitam in E (FISH OIL) 1,000 mg capsule 2020-08 09:44: 23 Yes 1g Take 1 g by mouth daily. [facility] omega-3 fatty acids-vitam in E (FISH OIL) 1,000 mg capsule 2020-08 09:44: 23 Yes 1g Take 1 g by mouth daily. [facility] omega-3 fatty acids-vitam in E (FISH OIL) 1,000 mg capsule 2020-08 09:44: 23 Yes 1g Take 1 g by mouth daily. [facility] omega-3 fatty acids-vitam in E (FISH OIL) 1,000 mg capsule 2020-08 09:44: 23 Yes 1g Take 1 g by mouth daily. [facility] omega-3 fatty acids-vitam in E (FISH OIL) 1,000 mg capsule 2020-08 09:44: 23 Yes 1g Take 1 g by mouth daily. [facility] omega-3 fatty acids-vitam in E (FISH OIL) 1,000 mg capsule 2020-08 09:44: 23 Yes 1g Take 1 g by mouth daily. [facility] omega-3 fatty acids-vitam in E (FISH OIL) 1,000 mg capsule 2020-08 09:44: 23 Yes 1g Take 1 g by mouth daily. [facility] omega-3 fatty acids-vitam in E (FISH OIL) 1,000 mg capsule 2020-08 09:44: 23 Yes 1g Take 1 g by mouth daily. [facility] omega-3 fatty acids-vitam in E (FISH OIL) 1,000 mg capsule 2020-08 09:44: 23 Yes 1g Take 1 g by mouth daily. [facility] omega-3 fatty acids-vitam in E (FISH OIL) 1,000 mg capsule 2020-08 09:44: 23 Yes 1g Take 1 g by mouth daily. [facility] omega-3 fatty acids-vitam in E (FISH OIL) 1,000 mg capsule 2020-08 09:44: 23 Yes 1g Take 1 g by mouth daily. [facility] omega-3 fatty acids-vitam in E (FISH OIL) 1,000 mg capsule 2020-08 09:44: 23 Yes 1g Take 1 g by mouth daily. [facility] omega-3 fatty acids-vitam in E (FISH OIL) 1,000 mg capsule 2020-08 09:44: 23 Yes 1g Take 1 g by mouth daily. [facility] omega-3 fatty acids-vitam in E (FISH OIL) 1,000 mg capsule 2020-08 09:44: 23 Yes 1g Take 1 g by mouth daily. [facility] omega-3 fatty acids-vitam in E (FISH OIL) 1,000 mg capsule 2020-08 09:44: 23 Yes 1g Take 1 g by mouth daily. [facility] omega-3 fatty acids-vitam in E (FISH OIL) 1,000 mg capsule 2020-08 09:44: 23 Yes 1g Take 1 g by mouth daily. [facility] omega-3 fatty acids-vitam in E (FISH OIL) 1,000 mg capsule 2020-08 09:44: 23 Yes 1g Take 1 g by mouth daily. [facility] omega-3 fatty acids-vitam in E (FISH OIL) 1,000 mg capsule 2020-08 09:44: 23 Yes 1g Take 1 g by mouth daily. [facility] omega-3 fatty acids-vitam in E (FISH OIL) 1,000 mg capsule 2020-08 09:44: 23 Yes 1g Take 1 g by mouth daily. [facility] omega-3 fatty acids-vitam in E (FISH OIL) 1,000 mg capsule 2020-08 09:44: 23 Yes 1g Take 1 g by mouth daily. [facility] omega-3 fatty acids-vitam in E (FISH OIL) 1,000 mg capsule 2020-08 09:44: 23 Yes 1g Take 1 g by mouth daily. [facility] omega-3 fatty acids-vitam in E (FISH OIL) 1,000 mg capsule 2020-08 09:44: 23 Yes 1g Take 1 g by mouth daily. [facility] omega-3 fatty acids-vitam in E (FISH OIL) 1,000 mg capsule 2020-08 09:44: 23 Yes 1g Take 1 g by mouth daily. [facility] omega-3 fatty acids-vitam in E (FISH OIL) 1,000 mg capsule 2020-08 09:44: 23 Yes 1g Take 1 g by mouth daily. [facility] omega-3 fatty acids-vitam in E (FISH OIL) 1,000 mg capsule 2020-08 09:44: 23 Yes 1g Take 1 g by mouth daily. [facility] omega-3 fatty acids-vitam in E (FISH OIL) 1,000 mg capsule 2020-08 09:44: 23 Yes 1g Take 1 g by mouth daily. [facility] omega-3 fatty acids-vitam in E (FISH OIL) 1,000 mg capsule 2020-08 09:44: 23 Yes 1g Take 1 g by mouth daily. [facility] omega-3 fatty acids-vitam in E (FISH OIL) 1,000 mg capsule 2020-08 09:44: 23 Yes 1g Take 1 g by mouth daily. [facility] omega-3 fatty acids-vitam in E (FISH OIL) 1,000 mg capsule 2020-08 09:44: 23 Yes 1g Take 1 g by mouth daily. [facility] omega-3 fatty acids-vitam in E (FISH OIL) 1,000 mg capsule 2020-08 09:44: 23 Yes 1g Take 1 g by mouth daily. [facility] omega-3 fatty acids-vitam in E (FISH OIL) 1,000 mg capsule 2020-08 09:44: 23 Yes 1g Take 1 g by mouth daily. [facility] omega-3 fatty acids-vitam in E (FISH OIL) 1,000 mg capsule 2020-08 09:44: 23 Yes 1g Take 1 g by mouth daily. [facility] omega-3 fatty acids-vitam in E (FISH OIL) 1,000 mg capsule 2020-08 09:44: 23 Yes 1g Take 1 g by mouth daily. [facility] Methylcellu lose, with Sugar, (CITRUCEL, SUCROSE,) powder 04-25 00:00: 00 Yes [id number] 1{scoop } Take 1 Scoop by mouth daily. Mixed with water [facility] Methylcellu lose, with Sugar, (CITRUCEL, SUCROSE,) powder 04-25 00:00: 00 Yes [id number] 1{scoop } Take 1 Scoop by mouth daily. Mixed with water [facility] Methylcellu lose, with Sugar, (CITRUCEL, SUCROSE,) powder 04-25 00:00: 00 Yes [id number] 1{scoop } Take 1 Scoop by mouth daily. Mixed with water [facility] Methylcellu lose, with Sugar, (CITRUCEL, SUCROSE,) powder 04-25 00:00: 00 Yes [id number] 1{scoop } Take 1 Scoop by mouth daily. Mixed with water [facility] Methylcellu lose, with Sugar, (CITRUCEL, SUCROSE,) powder 04-25 00:00: 00 Yes [id number] 1{scoop } Take 1 Scoop by mouth daily. Mixed with water [facility] Methylcellu lose, with Sugar, (CITRUCEL, SUCROSE,) powder 04-25 00:00: 00 Yes [id number] 1{scoop } Take 1 Scoop by mouth daily. Mixed with water [facility] Methylcellu lose, with Sugar, (CITRUCEL, SUCROSE,) powder 04-25 00:00: 00 Yes [id number] 1{scoop } Take 1 Scoop by mouth daily. Mixed with water [facility] Methylcellu lose, with Sugar, (CITRUCEL, SUCROSE,) powder 04-25 00:00: 00 Yes [id number] 1{scoop } Take 1 Scoop by mouth daily. Mixed with water [facility] Methylcellu lose, with Sugar, (CITRUCEL, SUCROSE,) powder 04-25 00:00: 00 Yes [id number] 1{scoop } Take 1 Scoop by mouth daily. Mixed with water [facility] Methylcellu lose, with Sugar, (CITRUCEL, SUCROSE,) powder 04-25 00:00: 00 Yes [id number] 1{scoop } Take 1 Scoop by mouth daily. Mixed with water [facility] Methylcellu lose, with Sugar, (CITRUCEL, SUCROSE,) powder 04-25 00:00: 00 Yes [id number] 1{scoop } Take 1 Scoop by mouth daily. Mixed with water [facility] Methylcellu lose, with Sugar, (CITRUCEL, SUCROSE,) powder 04-25 00:00: 00 Yes [id number] 1{scoop } Take 1 Scoop by mouth daily. Mixed with water [facility] Methylcellu lose, with Sugar, (CITRUCEL, SUCROSE,) powder 04-25 00:00: 00 Yes [id number] 1{scoop } Take 1 Scoop by mouth daily. Mixed with water [facility] Methylcellu lose, with Sugar, (CITRUCEL, SUCROSE,) powder 04-25 00:00: 00 Yes [id number] 1{scoop } Take 1 Scoop by mouth daily. Mixed with water [facility] Methylcellu lose, with Sugar, (CITRUCEL, SUCROSE,) powder 04-25 00:00: 00 Yes [id number] 1{scoop } Take 1 Scoop by mouth daily. Mixed with water [facility] Methylcellu lose, with Sugar, (CITRUCEL, SUCROSE,) powder 04-25 00:00: 00 Yes [id number] 1{scoop } Take 1 Scoop by mouth daily. Mixed with water [facility] Methylcellu lose, with Sugar, (CITRUCEL, SUCROSE,) powder 04-25 00:00: 00 Yes [id number] 1{scoop } Take 1 Scoop by mouth daily. Mixed with water [facility] Methylcellu lose, with Sugar, (CITRUCEL, SUCROSE,) powder 04-25 00:00: 00 Yes [id number] 1{scoop } Take 1 Scoop by mouth daily. Mixed with water [facility] Methylcellu lose, with Sugar, (CITRUCEL, SUCROSE,) powder 04-25 00:00: 00 Yes [id number] 1{scoop } Take 1 Scoop by mouth daily. Mixed with water [facility] Methylcellu lose, with Sugar, (CITRUCEL, SUCROSE,) powder 04-25 00:00: 00 Yes [id number] 1{scoop } Take 1 Scoop by mouth daily. Mixed with water [facility] Methylcellu lose, with Sugar, (CITRUCEL, SUCROSE,) powder 04-25 00:00: 00 Yes [id number] 1{scoop } Take 1 Scoop by mouth daily. Mixed with water [facility] Methylcellu lose, with Sugar, (CITRUCEL, SUCROSE,) powder 04-25 00:00: 00 Yes [id number] 1{scoop } Take 1 Scoop by mouth daily. Mixed with water [facility] Methylcellu lose, with Sugar, (CITRUCEL, SUCROSE,) powder 04-25 00:00: 00 Yes [id number] 1{scoop } Take 1 Scoop by mouth daily. Mixed with water [facility] Methylcellu lose, with Sugar, (CITRUCEL, SUCROSE,) powder 04-25 00:00: 00 Yes [id number] 1{scoop } Take 1 Scoop by mouth daily. Mixed with water [facility] Methylcellu lose, with Sugar, (CITRUCEL, SUCROSE,) powder 04-25 00:00: 00 Yes [id number] 1{scoop } Take 1 Scoop by mouth daily. Mixed with water [facility] Methylcellu lose, with Sugar, (CITRUCEL, SUCROSE,) powder 04-25 00:00: 00 Yes [id number] 1{scoop } Take 1 Scoop by mouth daily. Mixed with water [facility] Methylcellu lose, with Sugar, (CITRUCEL, SUCROSE,) powder 04-25 00:00: 00 Yes [id number] 1{scoop } Take 1 Scoop by mouth daily. Mixed with water [facility] Methylcellu lose, with Sugar, (CITRUCEL, SUCROSE,) powder 04-25 00:00: 00 Yes [id number] 1{scoop } Take 1 Scoop by mouth daily. Mixed with water [facility] Methylcellu lose, with Sugar, (CITRUCEL, SUCROSE,) powder 04-25 00:00: 00 Yes [id number] 1{scoop } Take 1 Scoop by mouth daily. Mixed with water [facility] Methylcellu lose, with Sugar, (CITRUCEL, SUCROSE,) powder 04-25 00:00: 00 Yes [id number] 1{scoop } Take 1 Scoop by mouth daily. Mixed with water [facility] Methylcellu lose, with Sugar, (CITRUCEL, SUCROSE,) powder 04-25 00:00: 00 Yes [id number] 1{scoop } Take 1 Scoop by mouth daily. Mixed with water [facility] Methylcellu lose, with Sugar, (CITRUCEL, SUCROSE,) powder 04-25 00:00: 00 Yes [id number] 1{scoop } Take 1 Scoop by mouth daily. Mixed with water [facility] Methylcellu lose, with Sugar, (CITRUCEL, SUCROSE,) powder 04-25 00:00: 00 Yes [id number] 1{scoop } Take 1 Scoop by mouth daily. Mixed with water [facility] Methylcellu lose, with Sugar, (CITRUCEL, SUCROSE,) powder 04-25 00:00: 00 Yes [id number] 1{scoop } Take 1 Scoop by mouth daily. Mixed with water [facility] Methylcellu lose, with Sugar, (CITRUCEL, SUCROSE,) powder 04-25 00:00: 00 Yes [id number] 1{scoop } Take 1 Scoop by mouth daily. Mixed with water [facility] Methylcellu lose, with Sugar, (CITRUCEL, SUCROSE,) powder 04-25 00:00: 00 Yes [id number] 1{scoop } Take 1 Scoop by mouth daily. Mixed with water [facility] Methylcellu lose, with Sugar, (CITRUCEL, SUCROSE,) powder 04-25 00:00: 00 Yes [id number] 1{scoop } Take 1 Scoop by mouth daily. Mixed with water [facility] Methylcellu lose, with Sugar, (CITRUCEL, SUCROSE,) powder 04-25 00:00: 00 Yes [id number] 1{scoop } Take 1 Scoop by mouth daily. Mixed with water [facility] Methylcellu lose, with Sugar, (CITRUCEL, SUCROSE,) powder 04-25 00:00: 00 Yes [id number] 1{scoop } Take 1 Scoop by mouth daily. Mixed with water [facility] Methylcellu lose, with Sugar, (CITRUCEL, SUCROSE,) powder 04-25 00:00: 00 Yes [id number] 1{scoop } Take 1 Scoop by mouth daily. Mixed with water [facility] Methylcellu lose, with Sugar, (CITRUCEL, SUCROSE,) powder 04-25 00:00: 00 Yes [id number] 1{scoop } Take 1 Scoop by mouth daily. Mixed with water [facility] Methylcellu lose, with Sugar, (CITRUCEL, SUCROSE,) powder 04-25 00:00: 00 Yes [id number] 1{scoop } Take 1 Scoop by mouth daily. Mixed with water [facility] Methylcellu lose, with Sugar, (CITRUCEL, SUCROSE,) powder 04-25 00:00: 00 Yes [id number] 1{scoop } Take 1 Scoop by mouth daily. Mixed with water [facility] Methylcellu lose, with Sugar, (CITRUCEL, SUCROSE,) powder 04-25 00:00: 00 Yes [id number] 1{scoop } Take 1 Scoop by mouth daily. Mixed with water [facility] Methylcellu lose, with Sugar, (CITRUCEL, SUCROSE,) powder 04-25 00:00: 00 Yes [id number] 1{scoop } Take 1 Scoop by mouth daily. Mixed with water [facility] Methylcellu lose, with Sugar, (CITRUCEL, SUCROSE,) powder 04-25 00:00: 00 Yes [id number] 1{scoop } Take 1 Scoop by mouth daily. Mixed with water [facility] Methylcellu lose, with Sugar, (CITRUCEL, SUCROSE,) powder 04-25 00:00: 00 Yes [id number] 1{scoop } Take 1 Scoop by mouth daily. Mixed with water [facility] Methylcellu lose, with Sugar, (CITRUCEL, SUCROSE,) powder 04-25 00:00: 00 Yes [id number] 1{scoop } Take 1 Scoop by mouth daily. Mixed with water [facility] Methylcellu lose, with Sugar, (CITRUCEL, SUCROSE,) powder 04-25 00:00: 00 Yes [id number] 1{scoop } Take 1 Scoop by mouth daily. Mixed with water [facility] Methylcellu lose, with Sugar, (CITRUCEL, SUCROSE,) powder 04-25 00:00: 00 Yes [id number] 1{scoop } Take 1 Scoop by mouth daily. Mixed with water [facility] Methylcellu lose, with Sugar, (CITRUCEL, SUCROSE,) powder 04-25 00:00: 00 Yes [id number] 1{scoop } Take 1 Scoop by mouth daily. Mixed with water [facility] Methylcellu lose, with Sugar, (CITRUCEL, SUCROSE,) powder 04-25 00:00: 00 Yes [id number] 1{scoop } Take 1 Scoop by mouth daily. Mixed with water [facility] Methylcellu lose, with Sugar, (CITRUCEL, SUCROSE,) powder 04-25 00:00: 00 Yes [id number] 1{scoop } Take 1 Scoop by mouth daily. Mixed with water [facility] Methylcellu lose, with Sugar, (CITRUCEL, SUCROSE,) powder 04-25 00:00: 00 Yes [id number] 1{scoop } Take 1 Scoop by mouth daily. Mixed with water [facility] Methylcellu lose, with Sugar, (CITRUCEL, SUCROSE,) powder 04-25 00:00: 00 Yes [id number] 1{scoop } Take 1 Scoop by mouth daily. Mixed with water [facility] Methylcellu lose, with Sugar, (CITRUCEL, SUCROSE,) powder 04-25 00:00: 00 Yes [id number] 1{scoop } Take 1 Scoop by mouth daily. Mixed with water [facility] Methylcellu lose, with Sugar, (CITRUCEL, SUCROSE,) powder 04-25 00:00: 00 Yes [id number] 1{scoop } Take 1 Scoop by mouth daily. Mixed with water [facility] Methylcellu lose, with Sugar, (CITRUCEL, SUCROSE,) powder 04-25 00:00: 00 Yes [id number] 1{scoop } Take 1 Scoop by mouth daily. Mixed with water [facility] Methylcellu lose, with Sugar, (CITRUCEL, SUCROSE,) powder 04-25 00:00: 00 Yes [id number] 1{scoop } Take 1 Scoop by mouth daily. Mixed with water [facility] Methylcellu lose, with Sugar, (CITRUCEL, SUCROSE,) powder 04-25 00:00: 00 Yes [id number] 1{scoop } Take 1 Scoop by mouth daily. Mixed with water [facility] Methylcellu lose, with Sugar, (CITRUCEL, SUCROSE,) powder 04-25 00:00: 00 Yes [id number] 1{scoop } Take 1 Scoop by mouth daily. Mixed with water [facility] Methylcellu lose, with Sugar, (CITRUCEL, SUCROSE,) powder 04-25 00:00: 00 Yes [id number] 1{scoop } Take 1 Scoop by mouth daily. Mixed with water [facility] Methylcellu lose, with Sugar, (CITRUCEL, SUCROSE,) powder 04-25 00:00: 00 Yes [id number] 1{scoop } Take 1 Scoop by mouth daily. Mixed with water [facility] Methylcellu lose, with Sugar, (CITRUCEL, SUCROSE,) powder 04-25 00:00: 00 Yes [id number] 1{scoop } Take 1 Scoop by mouth daily. Mixed with water [facility] Methylcellu lose, with Sugar, (CITRUCEL, SUCROSE,) powder 04-25 00:00: 00 Yes [id number] 1{scoop } Take 1 Scoop by mouth daily. Mixed with water [facility] Methylcellu lose, with Sugar, (CITRUCEL, SUCROSE,) powder 04-25 00:00: 00 Yes [id number] 1{scoop } Take 1 Scoop by mouth daily. Mixed with water [facility] Methylcellu lose, with Sugar, (CITRUCEL, SUCROSE,) powder 04-25 00:00: 00 Yes [id number] 1{scoop } Take 1 Scoop by mouth daily. Mixed with water [facility] Methylcellu lose, with Sugar, (CITRUCEL, SUCROSE,) powder 04-25 00:00: 00 Yes [id number] 1{scoop } Take 1 Scoop by mouth daily. Mixed with water [facility] Methylcellu lose, with Sugar, (CITRUCEL, SUCROSE,) powder 04-25 00:00: 00 Yes [id number] 1{scoop } Take 1 Scoop by mouth daily. Mixed with water [facility] Methylcellu lose, with Sugar, (CITRUCEL, SUCROSE,) powder 04-25 00:00: 00 Yes [id number] 1{scoop } Take 1 Scoop by mouth daily. Mixed with water [facility] Methylcellu lose, with Sugar, (CITRUCEL, SUCROSE,) powder 04-25 00:00: 00 Yes [id number] 1{scoop } Take 1 Scoop by mouth daily. Mixed with water [facility] Methylcellu lose, with Sugar, (CITRUCEL, SUCROSE,) powder 04-25 00:00: 00 Yes [id number] 1{scoop } Take 1 Scoop by mouth daily. Mixed with water [facility] Methylcellu lose, with Sugar, (CITRUCEL, SUCROSE,) powder 04-25 00:00: 00 Yes [id number] 1{scoop } Take 1 Scoop by mouth daily. Mixed with water [facility] Methylcellu lose, with Sugar, (CITRUCEL, SUCROSE,) powder 04-25 00:00: 00 Yes [id number] 1{scoop } Take 1 Scoop by mouth daily. Mixed with water [facility] Methylcellu lose, with Sugar, (CITRUCEL, SUCROSE,) powder 04-25 00:00: 00 Yes [id number] 1{scoop } Take 1 Scoop by mouth daily. Mixed with water [facility] Methylcellu lose, with Sugar, (CITRUCEL, SUCROSE,) powder 04-25 00:00: 00 Yes [id number] 1{scoop } Take 1 Scoop by mouth daily. Mixed with water [facility] Methylcellu lose, with Sugar, (CITRUCEL, SUCROSE,) powder 04-25 00:00: 00 Yes [id number] 1{scoop } Take 1 Scoop by mouth daily. Mixed with water [facility] Methylcellu lose, with Sugar, (CITRUCEL, SUCROSE,) powder 04-25 00:00: 00 Yes [id number] 1{scoop } Take 1 Scoop by mouth daily. Mixed with water [facility] Methylcellu lose, with Sugar, (CITRUCEL, SUCROSE,) powder 04-25 00:00: 00 Yes [id number] 1{scoop } Take 1 Scoop by mouth daily. Mixed with water [facility] Methylcellu lose, with Sugar, (CITRUCEL, SUCROSE,) powder 04-25 00:00: 00 Yes [id number] 1{scoop } Take 1 Scoop by mouth daily. Mixed with water [facility] Methylcellu lose, with Sugar, (CITRUCEL, SUCROSE,) powder 04-25 00:00: 00 Yes [id number] 1{scoop } Take 1 Scoop by mouth daily. Mixed with water [facility] Methylcellu lose, with Sugar, (CITRUCEL, SUCROSE,) powder 04-25 00:00: 00 Yes [id number] 1{scoop } Take 1 Scoop by mouth daily. Mixed with water [facility] Methylcellu lose, with Sugar, (CITRUCEL, SUCROSE,) powder 04-25 00:00: 00 Yes [id number] 1{scoop } Take 1 Scoop by mouth daily. Mixed with water [facility] Methylcellu lose, with Sugar, (CITRUCEL, SUCROSE,) powder 04-25 00:00: 00 Yes [id number] 1{scoop } Take 1 Scoop by mouth daily. Mixed with water [facility] Methylcellu lose, with Sugar, (CITRUCEL, SUCROSE,) powder 04-25 00:00: 00 Yes [id number] 1{scoop } Take 1 Scoop by mouth daily. Mixed with water [facility] Methylcellu lose, with Sugar, (CITRUCEL, SUCROSE,) powder 04-25 00:00: 00 Yes [id number] 1{scoop } Take 1 Scoop by mouth daily. Mixed with water [facility] Methylcellu lose, with Sugar, (CITRUCEL, SUCROSE,) powder 04-25 00:00: 00 Yes [id number] 1{scoop } Take 1 Scoop by mouth daily. Mixed with water [facility] Methylcellu lose, with Sugar, (CITRUCEL, SUCROSE,) powder 04-25 00:00: 00 Yes [id number] 1{scoop } Take 1 Scoop by mouth daily. Mixed with water [facility] Methylcellu lose, with Sugar, (CITRUCEL, SUCROSE,) powder 04-25 00:00: 00 Yes [id number] 1{scoop } Take 1 Scoop by mouth daily. Mixed with water [facility] Methylcellu lose, with Sugar, (CITRUCEL, SUCROSE,) powder 04-25 00:00: 00 Yes [id number] 1{scoop } Take 1 Scoop by mouth daily. Mixed with water [facility] Methylcellu lose, with Sugar, (CITRUCEL, SUCROSE,) powder 04-25 00:00: 00 Yes [id number] 1{scoop } Take 1 Scoop by mouth daily. Mixed with water [facility] Methylcellu lose, with Sugar, (CITRUCEL, SUCROSE,) powder 04-25 00:00: 00 Yes [id number] 1{scoop } Take 1 Scoop by mouth daily. Mixed with water [facility] Methylcellu lose, with Sugar, (CITRUCEL, SUCROSE,) powder 04-25 00:00: 00 Yes [id number] 1{scoop } Take 1 Scoop by mouth daily. Mixed with water [facility] Methylcellu lose, with Sugar, (CITRUCEL, SUCROSE,) powder 04-25 00:00: 00 Yes [id number] 1{scoop } Take 1 Scoop by mouth daily. Mixed with water [facility] Methylcellu lose, with Sugar, (CITRUCEL, SUCROSE,) powder 04-25 00:00: 00 Yes [id number] 1{scoop } Take 1 Scoop by mouth daily. Mixed with water [facility] Methylcellu lose, with Sugar, (CITRUCEL, SUCROSE,) powder 04-25 00:00: 00 Yes [id number] 1{scoop } Take 1 Scoop by mouth daily. Mixed with water [facility] Methylcellu lose, with Sugar, (CITRUCEL, SUCROSE,) powder 04-25 00:00: 00 Yes [id number] 1{scoop } Take 1 Scoop by mouth daily. Mixed with water [facility] Methylcellu lose, with Sugar, (CITRUCEL, SUCROSE,) powder 04-25 00:00: 00 Yes [id number] 1{scoop } Take 1 Scoop by mouth daily. Mixed with water [facility] Methylcellu lose, with Sugar, (CITRUCEL, SUCROSE,) powder 04-25 00:00: 00 Yes [id number] 1{scoop } Take 1 Scoop by mouth daily. Mixed with water [facility] Methylcellu lose, with Sugar, (CITRUCEL, SUCROSE,) powder 04-25 00:00: 00 Yes [id number] 1{scoop } Take 1 Scoop by mouth daily. Mixed with water [facility] Methylcellu lose, with Sugar, (CITRUCEL, SUCROSE,) powder 04-25 00:00: 00 Yes [id number] 1{scoop } Take 1 Scoop by mouth daily. Mixed with water [facility] Methylcellu lose, with Sugar, (CITRUCEL, SUCROSE,) powder 04-25 00:00: 00 Yes [id number] 1{scoop } Take 1 Scoop by mouth daily. Mixed with water [facility] Methylcellu lose, with Sugar, (CITRUCEL, SUCROSE,) powder 04-25 00:00: 00 Yes [id number] 1{scoop } Take 1 Scoop by mouth daily. Mixed with water [facility] Methylcellu lose, with Sugar, (CITRUCEL, SUCROSE,) powder 04-25 00:00: 00 Yes [id number] 1{scoop } Take 1 Scoop by mouth daily. Mixed with water [facility] Methylcellu lose, with Sugar, (CITRUCEL, SUCROSE,) powder 04-25 00:00: 00 Yes [id number] 1{scoop } Take 1 Scoop by mouth daily. Mixed with water [facility] Methylcellu lose, with Sugar, (CITRUCEL, SUCROSE,) powder 04-25 00:00: 00 Yes [id number] 1{scoop } Take 1 Scoop by mouth daily. Mixed with water [facility] Methylcellu lose, with Sugar, (CITRUCEL, SUCROSE,) powder 04-25 00:00: 00 Yes [id number] 1{scoop } Take 1 Scoop by mouth daily. Mixed with water [facility] Methylcellu lose, with Sugar, (CITRUCEL, SUCROSE,) powder 04-25 00:00: 00 Yes [id number] 1{scoop } Take 1 Scoop by mouth daily. Mixed with water [facility] Methylcellu lose, with Sugar, (CITRUCEL, SUCROSE,) powder 04-25 00:00: 00 Yes [id number] 1{scoop } Take 1 Scoop by mouth daily. Mixed with water [facility] Methylcellu lose, with Sugar, (CITRUCEL, SUCROSE,) powder 04-25 00:00: 00 Yes [id number] 1{scoop } Take 1 Scoop by mouth daily. Mixed with water [facility] Methylcellu lose, with Sugar, (CITRUCEL, SUCROSE,) powder 04-25 00:00: 00 Yes [id number] 1{scoop } Take 1 Scoop by mouth daily. Mixed with water [facility] Methylcellu lose, with Sugar, (CITRUCEL, SUCROSE,) powder 04-25 00:00: 00 Yes [id number] 1{scoop } Take 1 Scoop by mouth daily. Mixed with water [facility] Methylcellu lose, with Sugar, (CITRUCEL, SUCROSE,) powder 04-25 00:00: 00 Yes [id number] 1{scoop } Take 1 Scoop by mouth daily. Mixed with water [facility] Methylcellu lose, with Sugar, (CITRUCEL, SUCROSE,) powder 04-25 00:00: 00 Yes [id number] 1{scoop } Take 1 Scoop by mouth daily. Mixed with water [facility] Methylcellu lose, with Sugar, (CITRUCEL, SUCROSE,) powder 04-25 00:00: 00 Yes [id number] 1{scoop } Take 1 Scoop by mouth daily. Mixed with water [facility] Methylcellu lose, with Sugar, (CITRUCEL, SUCROSE,) powder 04-25 00:00: 00 Yes [id number] 1{scoop } Take 1 Scoop by mouth daily. Mixed with water [facility] Methylcellu lose, with Sugar, (CITRUCEL, SUCROSE,) powder 04-25 00:00: 00 Yes [id number] 1{scoop } Take 1 Scoop by mouth daily. Mixed with water [facility] Methylcellu lose, with Sugar, (CITRUCEL, SUCROSE,) powder 04-25 00:00: 00 Yes [id number] 1{scoop } Take 1 Scoop by mouth daily. Mixed with water [facility] Methylcellu lose, with Sugar, (CITRUCEL, SUCROSE,) powder 04-25 00:00: 00 Yes [id number] 1{scoop } Take 1 Scoop by mouth daily. Mixed with water [facility] Methylcellu lose, with Sugar, (CITRUCEL, SUCROSE,) powder 04-25 00:00: 00 Yes [id number] 1{scoop } Take 1 Scoop by mouth daily. Mixed with water [facility] Methylcellu lose, with Sugar, (CITRUCEL, SUCROSE,) powder 04-25 00:00: 00 Yes [id number] 1{scoop } Take 1 Scoop by mouth daily. Mixed with water [facility] Methylcellu lose, with Sugar, (CITRUCEL, SUCROSE,) powder 04-25 00:00: 00 Yes [id number] 1{scoop } Take 1 Scoop by mouth daily. Mixed with water [facility] Methylcellu lose, with Sugar, (CITRUCEL, SUCROSE,) powder 04-25 00:00: 00 Yes [id number] 1{scoop } Take 1 Scoop by mouth daily. Mixed with water [facility] Methylcellu lose, with Sugar, (CITRUCEL, SUCROSE,) powder 04-25 00:00: 00 Yes [id number] 1{scoop } Take 1 Scoop by mouth daily. Mixed with water [facility] Methylcellu lose, with Sugar, (CITRUCEL, SUCROSE,) powder 04-25 00:00: 00 Yes [id number] 1{scoop } Take 1 Scoop by mouth daily. Mixed with water [facility] Methylcellu lose, with Sugar, (CITRUCEL, SUCROSE,) powder 04-25 00:00: 00 Yes [id number] 1{scoop } Take 1 Scoop by mouth daily. Mixed with water [facility] Methylcellu lose, with Sugar, (CITRUCEL, SUCROSE,) powder 04-25 00:00: 00 Yes [id number] 1{scoop } Take 1 Scoop by mouth daily. Mixed with water [facility] Methylcellu lose, with Sugar, (CITRUCEL, SUCROSE,) powder 04-25 00:00: 00 Yes [id number] 1{scoop } Take 1 Scoop by mouth daily. Mixed with water [facility] Methylcellu lose, with Sugar, (CITRUCEL, SUCROSE,) powder 04-25 00:00: 00 Yes [id number] 1{scoop } Take 1 Scoop by mouth daily. Mixed with water [facility] Methylcellu lose, with Sugar, (CITRUCEL, SUCROSE,) powder 04-25 00:00: 00 Yes [id number] 1{scoop } Take 1 Scoop by mouth daily. Mixed with water [facility] Methylcellu lose, with Sugar, (CITRUCEL, SUCROSE,) powder 04-25 00:00: 00 Yes [id number] 1{scoop } Take 1 Scoop by mouth daily. Mixed with water [facility] Methylcellu lose, with Sugar, (CITRUCEL, SUCROSE,) powder 04-25 00:00: 00 Yes [id number] 1{scoop } Take 1 Scoop by mouth daily. Mixed with water [facility] Methylcellu lose, with Sugar, (CITRUCEL, SUCROSE,) powder 04-25 00:00: 00 Yes [id number] 1{scoop } Take 1 Scoop by mouth daily. Mixed with water [facility] Methylcellu lose, with Sugar, (CITRUCEL, SUCROSE,) powder 04-25 00:00: 00 Yes [id number] 1{scoop } Take 1 Scoop by mouth daily. Mixed with water [facility] Methylcellu lose, with Sugar, (CITRUCEL, SUCROSE,) powder 04-25 00:00: 00 Yes [id number] 1{scoop } Take 1 Scoop by mouth daily. Mixed with water [facility] Methylcellu lose, with Sugar, (CITRUCEL, SUCROSE,) powder 04-25 00:00: 00 Yes [id number] 1{scoop } Take 1 Scoop by mouth daily. Mixed with water [facility] Methylcellu lose, with Sugar, (CITRUCEL, SUCROSE,) powder 04-25 00:00: 00 Yes [id number] 1{scoop } Take 1 Scoop by mouth daily. Mixed with water [facility] Methylcellu lose, with Sugar, (CITRUCEL, SUCROSE,) powder 04-25 00:00: 00 Yes [id number] 1{scoop } Take 1 Scoop by mouth daily. Mixed with water [facility] Methylcellu lose, with Sugar, (CITRUCEL, SUCROSE,) powder 04-25 00:00: 00 Yes [id number] 1{scoop } Take 1 Scoop by mouth daily. Mixed with water [facility] Methylcellu lose, with Sugar, (CITRUCEL, SUCROSE,) powder 04-25 00:00: 00 Yes [id number] 1{scoop } Take 1 Scoop by mouth daily. Mixed with water [facility] Methylcellu lose, with Sugar, (CITRUCEL, SUCROSE,) powder 04-25 00:00: 00 Yes [id number] 1{scoop } Take 1 Scoop by mouth daily. Mixed with water [facility] Methylcellu lose, with Sugar, (CITRUCEL, SUCROSE,) powder 04-25 00:00: 00 Yes [id number] 1{scoop } Take 1 Scoop by mouth daily. Mixed with water [facility] Methylcellu lose, with Sugar, (CITRUCEL, SUCROSE,) powder 04-25 00:00: 00 Yes [id number] 1{scoop } Take 1 Scoop by mouth daily. Mixed with water [facility] Methylcellu lose, with Sugar, (CITRUCEL, SUCROSE,) powder 04-25 00:00: 00 Yes [id number] 1{scoop } Take 1 Scoop by mouth daily. Mixed with water [facility] Methylcellu lose, with Sugar, (CITRUCEL, SUCROSE,) powder 04-25 00:00: 00 Yes [id number] 1{scoop } Take 1 Scoop by mouth daily. Mixed with water [facility] Methylcellu lose, with Sugar, (CITRUCEL, SUCROSE,) powder 04-25 00:00: 00 Yes [id number] 1{scoop } Take 1 Scoop by mouth daily. Mixed with water [facility] Methylcellu lose, with Sugar, (CITRUCEL, SUCROSE,) powder 04-25 00:00: 00 Yes [id number] 1{scoop } Take 1 Scoop by mouth daily. Mixed with water [facility] Methylcellu lose, with Sugar, (CITRUCEL, SUCROSE,) powder 04-25 00:00: 00 Yes [id number] 1{scoop } Take 1 Scoop by mouth daily. Mixed with water [facility] Methylcellu lose, with Sugar, (CITRUCEL, SUCROSE,) powder 04-25 00:00: 00 Yes [id number] 1{scoop } Take 1 Scoop by mouth daily. Mixed with water [facility] Methylcellu lose, with Sugar, (CITRUCEL, SUCROSE,) powder 04-25 00:00: 00 Yes [id number] 1{scoop } Take 1 Scoop by mouth daily. Mixed with water [facility] Methylcellu lose, with Sugar, (CITRUCEL, SUCROSE,) powder 04-25 00:00: 00 Yes [id number] 1{scoop } Take 1 Scoop by mouth daily. Mixed with water [facility] Methylcellu lose, with Sugar, (CITRUCEL, SUCROSE,) powder 04-25 00:00: 00 Yes [id number] 1{scoop } Take 1 Scoop by mouth daily. Mixed with water [facility] Methylcellu lose, with Sugar, (CITRUCEL, SUCROSE,) powder 04-25 00:00: 00 Yes [id number] 1{scoop } Take 1 Scoop by mouth daily. Mixed with water [facility] Methylcellu lose, with Sugar, (CITRUCEL, SUCROSE,) powder 04-25 00:00: 00 Yes [id number] 1{scoop } Take 1 Scoop by mouth daily. Mixed with water [facility] Methylcellu lose, with Sugar, (CITRUCEL, SUCROSE,) powder 04-25 00:00: 00 Yes [id number] 1{scoop } Take 1 Scoop by mouth daily. Mixed with water [facility] Methylcellu lose, with Sugar, (CITRUCEL, SUCROSE,) powder 04-25 00:00: 00 Yes [id number] 1{scoop } Take 1 Scoop by mouth daily. Mixed with water [facility] Methylcellu lose, with Sugar, (CITRUCEL, SUCROSE,) powder 04-25 00:00: 00 Yes [id number] 1{scoop } Take 1 Scoop by mouth daily. Mixed with water [facility] Methylcellu lose, with Sugar, (CITRUCEL, SUCROSE,) powder 04-25 00:00: 00 Yes [id number] 1{scoop } Take 1 Scoop by mouth daily. Mixed with water [facility] Methylcellu lose, with Sugar, (CITRUCEL, SUCROSE,) powder 04-25 00:00: 00 Yes [id number] 1{scoop } Take 1 Scoop by mouth daily. Mixed with water [facility] Methylcellu lose, with Sugar, (CITRUCEL, SUCROSE,) powder 04-25 00:00: 00 Yes [id number] 1{scoop } Take 1 Scoop by mouth daily. Mixed with water [facility] Methylcellu lose, with Sugar, (CITRUCEL, SUCROSE,) powder 04-25 00:00: 00 Yes [id number] 1{scoop } Take 1 Scoop by mouth daily. Mixed with water [facility] Methylcellu lose, with Sugar, (CITRUCEL, SUCROSE,) powder 04-25 00:00: 00 Yes [id number] 1{scoop } Take 1 Scoop by mouth daily. Mixed with water [facility] Methylcellu lose, with Sugar, (CITRUCEL, SUCROSE,) powder 04-25 00:00: 00 Yes [id number] 1{scoop } Take 1 Scoop by mouth daily. Mixed with water [facility] Methylcellu lose, with Sugar, (CITRUCEL, SUCROSE,) powder 04-25 00:00: 00 Yes [id number] 1{scoop } Take 1 Scoop by mouth daily. Mixed with water [facility] Methylcellu lose, with Sugar, (CITRUCEL, SUCROSE,) powder 04-25 00:00: 00 Yes [id number] 1{scoop } Take 1 Scoop by mouth daily. Mixed with water [facility] Methylcellu lose, with Sugar, (CITRUCEL, SUCROSE,) powder 04-25 00:00: 00 Yes [id number] 1{scoop } Take 1 Scoop by mouth daily. Mixed with water [facility] Methylcellu lose, with Sugar, (CITRUCEL, SUCROSE,) powder 04-25 00:00: 00 Yes [id number] 1{scoop } Take 1 Scoop by mouth daily. Mixed with water [facility] Methylcellu lose, with Sugar, (CITRUCEL, SUCROSE,) powder 04-25 00:00: 00 Yes [id number] 1{scoop } Take 1 Scoop by mouth daily. Mixed with water [facility] Methylcellu lose, with Sugar, (CITRUCEL, SUCROSE,) powder 04-25 00:00: 00 Yes [id number] 1{scoop } Take 1 Scoop by mouth daily. Mixed with water [facility] Methylcellu lose, with Sugar, (CITRUCEL, SUCROSE,) powder 04-25 00:00: 00 Yes [id number] 1{scoop } Take 1 Scoop by mouth daily. Mixed with water [facility] Methylcellu lose, with Sugar, (CITRUCEL, SUCROSE,) powder 04-25 00:00: 00 Yes [id number] 1{scoop } Take 1 Scoop by mouth daily. Mixed with water [facility] Methylcellu lose, with Sugar, (CITRUCEL, SUCROSE,) powder 04-25 00:00: 00 Yes [id number] 1{scoop } Take 1 Scoop by mouth daily. Mixed with water [facility] Methylcellu lose, with Sugar, (CITRUCEL, SUCROSE,) powder 04-25 00:00: 00 Yes [id number] 1{scoop } Take 1 Scoop by mouth daily. Mixed with water [facility] Methylcellu lose, with Sugar, (CITRUCEL, SUCROSE,) powder 04-25 00:00: 00 Yes [id number] 1{scoop } Take 1 Scoop by mouth daily. Mixed with water [facility] Methylcellu lose, with Sugar, (CITRUCEL, SUCROSE,) powder 04-25 00:00: 00 Yes [id number] 1{scoop } Take 1 Scoop by mouth daily. Mixed with water [facility] Methylcellu lose, with Sugar, (CITRUCEL, SUCROSE,) powder 04-25 00:00: 00 Yes [id number] 1{scoop } Take 1 Scoop by mouth daily. Mixed with water [facility] Methylcellu lose, with Sugar, (CITRUCEL, SUCROSE,) powder 04-25 00:00: 00 Yes [id number] 1{scoop } Take 1 Scoop by mouth daily. Mixed with water [facility] Methylcellu lose, with Sugar, (CITRUCEL, SUCROSE,) powder 04-25 00:00: 00 Yes [id number] 1{scoop } Take 1 Scoop by mouth daily. Mixed with water [facility] Methylcellu lose, with Sugar, (CITRUCEL, SUCROSE,) powder 04-25 00:00: 00 Yes [id number] 1{scoop } Take 1 Scoop by mouth daily. Mixed with water [facility] Methylcellu lose, with Sugar, (CITRUCEL, SUCROSE,) powder 04-25 00:00: 00 Yes [id number] 1{scoop } Take 1 Scoop by mouth daily. Mixed with water [facility] Methylcellu lose, with Sugar, (CITRUCEL, SUCROSE,) powder 04-25 00:00: 00 Yes [id number] 1{scoop } Take 1 Scoop by mouth daily. Mixed with water [facility] Methylcellu lose, with Sugar, (CITRUCEL, SUCROSE,) powder 04-25 00:00: 00 Yes [id number] 1{scoop } Take 1 Scoop by mouth daily. Mixed with water [facility] Methylcellu lose, with Sugar, (CITRUCEL, SUCROSE,) powder 04-25 00:00: 00 Yes [id number] 1{scoop } Take 1 Scoop by mouth daily. Mixed with water [facility] Methylcellu lose, with Sugar, (CITRUCEL, SUCROSE,) powder 04-25 00:00: 00 Yes [id number] 1{scoop } Take 1 Scoop by mouth daily. Mixed with water [facility] Methylcellu lose, with Sugar, (CITRUCEL, SUCROSE,) powder 04-25 00:00: 00 Yes [id number] 1{scoop } Take 1 Scoop by mouth daily. Mixed with water [facility] Methylcellu lose, with Sugar, (CITRUCEL, SUCROSE,) powder 04-25 00:00: 00 Yes [id number] 1{scoop } Take 1 Scoop by mouth daily. Mixed with water [facility] Methylcellu lose, with Sugar, (CITRUCEL, SUCROSE,) powder 04-25 00:00: 00 Yes [id number] 1{scoop } Take 1 Scoop by mouth daily. Mixed with water [facility] Methylcellu lose, with Sugar, (CITRUCEL, SUCROSE,) powder 04-25 00:00: 00 Yes [id number] 1{scoop } Take 1 Scoop by mouth daily. Mixed with water [facility] Methylcellu lose, with Sugar, (CITRUCEL, SUCROSE,) powder 04-25 00:00: 00 Yes [id number] 1{scoop } Take 1 Scoop by mouth daily. Mixed with water [facility] Methylcellu lose, with Sugar, (CITRUCEL, SUCROSE,) powder 04-25 00:00: 00 Yes [id number] 1{scoop } Take 1 Scoop by mouth daily. Mixed with water [facility] Methylcellu lose, with Sugar, (CITRUCEL, SUCROSE,) powder 04-25 00:00: 00 Yes [id number] 1{scoop } Take 1 Scoop by mouth daily. Mixed with water [facility] Methylcellu lose, with Sugar, (CITRUCEL, SUCROSE,) powder 04-25 00:00: 00 Yes [id number] 1{scoop } Take 1 Scoop by mouth daily. Mixed with water [facility] Methylcellu lose, with Sugar, (CITRUCEL, SUCROSE,) powder 04-25 00:00: 00 Yes [id number] 1{scoop } Take 1 Scoop by mouth daily. Mixed with water [facility] Methylcellu lose, with Sugar, (CITRUCEL, SUCROSE,) powder 04-25 00:00: 00 Yes [id number] 1{scoop } Take 1 Scoop by mouth daily. Mixed with water [facility] Methylcellu lose, with Sugar, (CITRUCEL, SUCROSE,) powder 04-25 00:00: 00 Yes [id number] 1{scoop } Take 1 Scoop by mouth daily. Mixed with water [facility] Methylcellu lose, with Sugar, (CITRUCEL, SUCROSE,) powder 04-25 00:00: 00 Yes [id number] 1{scoop } Take 1 Scoop by mouth daily. Mixed with water [facility] Methylcellu lose, with Sugar, (CITRUCEL, SUCROSE,) powder 04-25 00:00: 00 Yes [id number] 1{scoop } Take 1 Scoop by mouth daily. Mixed with water [facility] Methylcellu lose, with Sugar, (CITRUCEL, SUCROSE,) powder 04-25 00:00: 00 Yes [id number] 1{scoop } Take 1 Scoop by mouth daily. Mixed with water [facility] Methylcellu lose, with Sugar, (CITRUCEL, SUCROSE,) powder 04-25 00:00: 00 Yes [id number] 1{scoop } Take 1 Scoop by mouth daily. Mixed with water [facility] Methylcellu lose, with Sugar, (CITRUCEL, SUCROSE,) powder 04-25 00:00: 00 Yes [id number] 1{scoop } Take 1 Scoop by mouth daily. Mixed with water [facility] Methylcellu lose, with Sugar, (CITRUCEL, SUCROSE,) powder 04-25 00:00: 00 Yes [id number] 1{scoop } Take 1 Scoop by mouth daily. Mixed with water [facility] Methylcellu lose, with Sugar, (CITRUCEL, SUCROSE,) powder 04-25 00:00: 00 Yes [id number] 1{scoop } Take 1 Scoop by mouth daily. Mixed with water [facility] Methylcellu lose, with Sugar, (CITRUCEL, SUCROSE,) powder 04-25 00:00: 00 Yes [id number] 1{scoop } Take 1 Scoop by mouth daily. Mixed with water [facility] Methylcellu lose, with Sugar, (CITRUCEL, SUCROSE,) powder 04-25 00:00: 00 Yes [id number] 1{scoop } Take 1 Scoop by mouth daily. Mixed with water [facility] Methylcellu lose, with Sugar, (CITRUCEL, SUCROSE,) powder 04-25 00:00: 00 Yes [id number] 1{scoop } Take 1 Scoop by mouth daily. Mixed with water [facility] Methylcellu lose, with Sugar, (CITRUCEL, SUCROSE,) powder 04-25 00:00: 00 Yes [id number] 1{scoop } Take 1 Scoop by mouth daily. Mixed with water [facility] Methylcellu lose, with Sugar, (CITRUCEL, SUCROSE,) powder 04-25 00:00: 00 Yes [id number] 1{scoop } Take 1 Scoop by mouth daily. Mixed with water [facility] Methylcellu lose, with Sugar, (CITRUCEL, SUCROSE,) powder 04-25 00:00: 00 Yes [id number] 1{scoop } Take 1 Scoop by mouth daily. Mixed with water [facility] Methylcellu lose, with Sugar, (CITRUCEL, SUCROSE,) powder 04-25 00:00: 00 Yes [id number] 1{scoop } Take 1 Scoop by mouth daily. Mixed with water [facility] Methylcellu lose, with Sugar, (CITRUCEL, SUCROSE,) powder 04-25 00:00: 00 Yes [id number] 1{scoop } Take 1 Scoop by mouth daily. Mixed with water [facility] Methylcellu lose, with Sugar, (CITRUCEL, SUCROSE,) powder 04-25 00:00: 00 Yes [id number] 1{scoop } Take 1 Scoop by mouth daily. Mixed with water [facility] Methylcellu lose, with Sugar, (CITRUCEL, SUCROSE,) powder 04-25 00:00: 00 Yes [id number] 1{scoop } Take 1 Scoop by mouth daily. Mixed with water [facility] Methylcellu lose, with Sugar, (CITRUCEL, SUCROSE,) powder 04-25 00:00: 00 Yes [id number] 1{scoop } Take 1 Scoop by mouth daily. Mixed with water [facility] Methylcellu lose, with Sugar, (CITRUCEL, SUCROSE,) powder 04-25 00:00: 00 Yes [id number] 1{scoop } Take 1 Scoop by mouth daily. Mixed with water [facility] Methylcellu lose, with Sugar, (CITRUCEL, SUCROSE,) powder 04-25 00:00: 00 Yes [id number] 1{scoop } Take 1 Scoop by mouth daily. Mixed with water [facility] Methylcellu lose, with Sugar, (CITRUCEL, SUCROSE,) powder 04-25 00:00: 00 Yes [id number] 1{scoop } Take 1 Scoop by mouth daily. Mixed with water [facility] Methylcellu lose, with Sugar, (CITRUCEL, SUCROSE,) powder 04-25 00:00: 00 Yes [id number] 1{scoop } Take 1 Scoop by mouth daily. Mixed with water [facility] Methylcellu lose, with Sugar, (CITRUCEL, SUCROSE,) powder 04-25 00:00: 00 Yes [id number] 1{scoop } Take 1 Scoop by mouth daily. Mixed with water [facility] Methylcellu lose, with Sugar, (CITRUCEL, SUCROSE,) powder 04-25 00:00: 00 Yes [id number] 1{scoop } Take 1 Scoop by mouth daily. Mixed with water [facility] Methylcellu lose, with Sugar, (CITRUCEL, SUCROSE,) powder 04-25 00:00: 00 Yes [id number] 1{scoop } Take 1 Scoop by mouth daily. Mixed with water [facility] Methylcellu lose, with Sugar, (CITRUCEL, SUCROSE,) powder 04-25 00:00: 00 Yes [id number] 1{scoop } Take 1 Scoop by mouth daily. Mixed with water [facility] Methylcellu lose, with Sugar, (CITRUCEL, SUCROSE,) powder 04-25 00:00: 00 Yes [id number] 1{scoop } Take 1 Scoop by mouth daily. Mixed with water [facility] Methylcellu lose, with Sugar, (CITRUCEL, SUCROSE,) powder 04-25 00:00: 00 Yes [id number] 1{scoop } Take 1 Scoop by mouth daily. Mixed with water [facility] Methylcellu lose, with Sugar, (CITRUCEL, SUCROSE,) powder 04-25 00:00: 00 Yes [id number] 1{scoop } Take 1 Scoop by mouth daily. Mixed with water [facility] Methylcellu lose, with Sugar, (CITRUCEL, SUCROSE,) powder 04-25 00:00: 00 Yes [id number] 1{scoop } Take 1 Scoop by mouth daily. Mixed with water [facility] Methylcellu lose, with Sugar, (CITRUCEL, SUCROSE,) powder 04-25 00:00: 00 Yes [id number] 1{scoop } Take 1 Scoop by mouth daily. Mixed with water [facility] Methylcellu lose, with Sugar, (CITRUCEL, SUCROSE,) powder 04-25 00:00: 00 Yes [id number] 1{scoop } Take 1 Scoop by mouth daily. Mixed with water [facility] Methylcellu lose, with Sugar, (CITRUCEL, SUCROSE,) powder 04-25 00:00: 00 Yes [id number] 1{scoop } Take 1 Scoop by mouth daily. Mixed with water [facility] Methylcellu lose, with Sugar, (CITRUCEL, SUCROSE,) powder 04-25 00:00: 00 Yes [id number] 1{scoop } Take 1 Scoop by mouth daily. Mixed with water [facility] Methylcellu lose, with Sugar, (CITRUCEL, SUCROSE,) powder 04-25 00:00: 00 Yes [id number] 1{scoop } Take 1 Scoop by mouth daily. Mixed with water [facility] Methylcellu lose, with Sugar, (CITRUCEL, SUCROSE,) powder 04-25 00:00: 00 Yes [id number] 1{scoop } Take 1 Scoop by mouth daily. Mixed with water [facility] Methylcellu lose, with Sugar, (CITRUCEL, SUCROSE,) powder 04-25 00:00: 00 Yes [id number] 1{scoop } Take 1 Scoop by mouth daily. Mixed with water [facility] Methylcellu lose, with Sugar, (CITRUCEL, SUCROSE,) powder 04-25 00:00: 00 Yes [id number] 1{scoop } Take 1 Scoop by mouth daily. Mixed with water [facility] Methylcellu lose, with Sugar, (CITRUCEL, SUCROSE,) powder 04-25 00:00: 00 Yes [id number] 1{scoop } Take 1 Scoop by mouth daily. Mixed with water [facility] Methylcellu lose, with Sugar, (CITRUCEL, SUCROSE,) powder 04-25 00:00: 00 Yes [id number] 1{scoop } Take 1 Scoop by mouth daily. Mixed with water [facility] Methylcellu lose, with Sugar, (CITRUCEL, SUCROSE,) powder 04-25 00:00: 00 Yes [id number] 1{scoop } Take 1 Scoop by mouth daily. Mixed with water [facility] Methylcellu lose, with Sugar, (CITRUCEL, SUCROSE,) powder 04-25 00:00: 00 Yes [id number] 1{scoop } Take 1 Scoop by mouth daily. Mixed with water [facility] Methylcellu lose, with Sugar, (CITRUCEL, SUCROSE,) powder 04-25 00:00: 00 Yes [id number] 1{scoop } Take 1 Scoop by mouth daily. Mixed with water [facility] Methylcellu lose, with Sugar, (CITRUCEL, SUCROSE,) powder 04-25 00:00: 00 Yes [id number] 1{scoop } Take 1 Scoop by mouth daily. Mixed with water [facility] Methylcellu lose, with Sugar, (CITRUCEL, SUCROSE,) powder 04-25 00:00: 00 Yes [id number] 1{scoop } Take 1 Scoop by mouth daily. Mixed with water [facility] Methylcellu lose, with Sugar, (CITRUCEL, SUCROSE,) powder 04-25 00:00: 00 Yes [id number] 1{scoop } Take 1 Scoop by mouth daily. Mixed with water [facility] chlorhexidi ne 4 % external liquid 2020-0 04-24 00:00: 00 Yes [id number] Apply to area(s) once daily as needed for Wound care. [facility] chlorhexidi ne 4 % external liquid 2020-0 04-24 00:00: 00 Yes [id number] Apply to area(s) once daily as needed for Wound care. [facility] chlorhexidi ne 4 % external liquid 2020-0 04-24 00:00: 00 Yes [id number] Apply to area(s) once daily as needed for Wound care. [facility] chlorhexidi ne 4 % external liquid 2020-0 04-24 00:00: 00 Yes [id number] Apply to area(s) once daily as needed for Wound care. [facility] chlorhexidi ne 4 % external liquid 2020-0 04-24 00:00: 00 Yes [id number] Apply to area(s) once daily as needed for Wound care. [facility] chlorhexidi ne 4 % external liquid 2020-0 04-24 00:00: 00 Yes [id number] Apply to area(s) once daily as needed for Wound care. [facility] chlorhexidi ne 4 % external liquid 2020-0 04-24 00:00: 00 Yes [id number] Apply to area(s) once daily as needed for Wound care. [facility] 2021-0 9-22 00:00: 00 Yes [id number] Apply to area(s) once daily as needed for Wound care. [facility] % external liquid 2021-0 9-22 00:00: 00 Yes [id number] Apply to area(s) once daily as needed for Wound care. [facility] % external liquid 2021-0 9-22 00:00: 00 Yes [id number] Apply to area(s) once daily as needed for Wound care. [facility] % external liquid 2021-0 9-22 00:00: 00 Yes [id number] Apply to area(s) once daily as needed for Wound care. [facility] % external liquid 2021-0 9-22 00:00: 00 Yes [id number] Apply to area(s) once daily as needed for Wound care. [facility] % external liquid 2021-0 9-22 00:00: 00 Yes [id number] Apply to area(s) once daily as needed for Wound care. [facility] % external liquid 2021-0 9-22 00:00: 00 Yes [id number] Apply to area(s) once daily as needed for Wound care. [facility] ne [facility] % external liquid 2021-0 9-22 00:00: 00 Yes [id number] Apply to area(s) once daily as needed for Wound care. [facility] chlor[facility]idi ne 4 % external liquid 2021-0 9-22 00:00: 00 Yes [id number] Apply to area(s) once daily as needed for Wound care. [facility] % external liquid 2021-0 9-22 00:00: 00 Yes [id number] Apply to area(s) once daily as needed for Wound care. [facility]idi ne [facility] % external liquid 2021-0 9-22 00:00: 00 Yes [id number] Apply to area(s) once daily as needed for Wound care. [facility] % external liquid 2021-0 9-22 00:00: 00 Yes [id number] Apply to area(s) once daily as needed for Wound care. [facility] chlorhexidi ne 4 % external liquid 2021-0 9-22 00:00: 00 Yes [id number] Apply to area(s) once daily as needed for Wound care. [facility] % external liquid 2021-0 9-22 00:00: 00 Yes [id number] Apply to area(s) once daily as needed for Wound care. [facility] chlorhexidi ne 4 % external liquid 2021-0 9-22 00:00: 00 Yes [id number] Apply to area(s) once daily as needed for Wound care. [facility] chlorhexidi ne 4 % external liquid 2021-0 9-22 00:00: 00 Yes [id number] Apply to area(s) once daily as needed for Wound care. [facility] chlorhexidi ne 4 % external liquid 2021-0 9-22 00:00: 00 Yes [id number] Apply to area(s) once daily as needed for Wound care. [facility] chlorhexidi ne 4 % external liquid 2021-0 9-22 00:00: 00 Yes [id number] Apply to area(s) once daily as needed for Wound care. [facility] chlorhexidi ne 4 % external liquid 2021-0 9-22 00:00: 00 Yes [id number] Apply to area(s) once daily as needed for Wound care. [facility] chlorhexidi ne 4 % external liquid 2021-0 9-22 00:00: 00 Yes [id number] Apply to area(s) once daily as needed for Wound care. [facility] chlorhexidi ne 4 % external liquid 2021-0 9-22 00:00: 00 Yes [id number] Apply to area(s) once daily as needed for Wound care. [facility] chlorhexidi ne 4 % external liquid 2021-0 9-22 00:00: 00 Yes [id number] Apply to area(s) once daily as needed for Wound care. [facility] % external liquid 2021-0 9 00:00: 00 Yes [id number] Apply to area(s) once daily as needed for Wound care. [facility] chlorhexidi ne 4 % external liquid 2021-0 922 00:00: 00 Yes [id number] Apply to area(s) once daily as needed for Wound care. [facility] chlorhexidi ne 4 % external liquid 2021-0 922 00:00: 00 Yes [id number] Apply to area(s) once daily as needed for Wound care. [facility] chlorhexidi ne 4 % external liquid 2021-0 9 00:00: 00 Yes [id number] Apply to area(s) once daily as needed for Wound care. [facility] chlorhexidi ne 4 % external liquid 2021-0 922 00:00: 00 Yes [id number] Apply to area(s) once daily as needed for Wound care. [facility] chlorhexidi ne 4 % external liquid 2021-0 922 00:00: 00 Yes [id number] Apply to area(s) once daily as needed for Wound care. [facility] chlorhexidi ne 4 % external liquid 2021-0 04-24 00:00: 00 Yes [id number] Apply to area(s) once daily as needed for Wound care. [facility] chlorhexidi ne 4 % external liquid 2021-0 922 00:00: 00 Yes [id number] Apply to area(s) once daily as needed for Wound care. [facility] chlorhexidi ne 4 % external liquid 2021-0 9-22 00:00: 00 Yes [id number] Apply to area(s) once daily as needed for Wound care. [facility] chlorhexidi ne 4 % external liquid 2021-0 9-22 00:00: 00 Yes [id number] Apply to area(s) once daily as needed for Wound care. [facility] chlorhexidi ne 4 % external liquid 2021-0 9-22 00:00: 00 Yes [id number] Apply to area(s) once daily as needed for Wound care. [facility] chlorhexidi ne 4 % external liquid 2021-0 9-22 00:00: 00 Yes [id number] Apply to area(s) once daily as needed for Wound care. [facility] chlorhexidi ne 4 % external liquid 2021-0 9-22 00:00: 00 Yes [id number] Apply to area(s) once daily as needed for Wound care. [facility] chlorhexidi ne 4 % external liquid 2021-0 9-22 00:00: 00 Yes [id number] Apply to area(s) once daily as needed for Wound care. [facility] % external liquid 2021-0 9-22 00:00: 00 Yes [id number] Apply to area(s) once daily as needed for Wound care. [facility] chlorhexidi ne 4 % external liquid 2021-0 9-22 00:00: 00 Yes [id number] Apply to area(s) once daily as needed for Wound care. [facility] chlorhexidi ne 4 % external liquid 2021-0 9-22 00:00: 00 Yes [id number] Apply to area(s) once daily as needed for Wound care. [facility] chlorhexidi ne 4 % external liquid 2021-0 9-22 00:00: 00 Yes [id number] Apply to area(s) once daily as needed for Wound care. [facility] chlorhexidi ne 4 % external liquid 2021-0 9-22 00:00: 00 Yes [id number] Apply to area(s) once daily as needed for Wound care. [facility] chlorhexidi ne 4 % external liquid 2021-0 9-22 00:00: 00 Yes [id number] Apply to area(s) once daily as needed for Wound care. [facility] chlorhexidi ne 4 % external liquid 2021-0 9-22 00:00: 00 Yes [id number] Apply to area(s) once daily as needed for Wound care. [facility] chlorhexidi ne 4 % external liquid 2021-0 9-22 00:00: 00 Yes [id number] Apply to area(s) once daily as needed for Wound care. [facility] chlorhexidi ne 4 % external liquid 2021-0 9-22 00:00: 00 Yes [id number] Apply to area(s) once daily as needed for Wound care. [facility] chlorhexidi ne 4 % external liquid 2021-0 9-22 00:00: 00 Yes [id number] Apply to area(s) once daily as needed for Wound care. [facility] chlorhexidi ne 4 % external liquid 2021-0 9-22 00:00: 00 Yes [id number] Apply to area(s) once daily as needed for Wound care. [facility] chlorhexidi ne 4 % external liquid 2021-0 9-22 00:00: 00 Yes [id number] Apply to area(s) once daily as needed for Wound care. [facility] chlorhexidi ne 4 % external liquid 2021-0 9-22 00:00: 00 Yes [id number] Apply to area(s) once daily as needed for Wound care. [facility] chlorhexidi ne 4 % external liquid 2021-0 9-22 00:00: 00 Yes [id number] Apply to area(s) once daily as needed for Wound care. [facility] chlorhexidi ne 4 % external liquid 2021-0 9-22 00:00: 00 Yes [id number] Apply to area(s) once daily as needed for Wound care. [facility] chlorhexidi ne 4 % external liquid 2021-0 9-22 00:00: 00 Yes [id number] Apply to area(s) once daily as needed for Wound care. [facility] chlorhexidi ne 4 % external liquid 2021-0 9-22 00:00: 00 Yes [id number] Apply to area(s) once daily as needed for Wound care. [facility] chlorhexidi ne 4 % external liquid 2021-0 9-22 00:00: 00 Yes [id number] Apply to area(s) once daily as needed for Wound care. [facility] chlorhexidi ne 4 % external liquid 2021-0 9-22 00:00: 00 Yes [id number] Apply to area(s) once daily as needed for Wound care. [facility]idi ne 4 % external liquid 2021-0 9-22 00:00: 00 Yes [id number] Apply to area(s) once daily as needed for Wound care. [facility] chlorhexidi ne 4 % external liquid 2021-0 9-22 00:00: 00 Yes [id number] Apply to area(s) once daily as needed for Wound care. [facility] chlorhexidi ne 4 % external liquid 2021-0 9-22 00:00: 00 Yes [id number] Apply to area(s) once daily as needed for Wound care. [facility] chlorhexidi ne 4 % external liquid 2021-0 9-22 00:00: 00 Yes [id number] Apply to area(s) once daily as needed for Wound care. [facility] chlorhexidi ne 4 % external liquid 2021-0 9-22 00:00: 00 Yes [id number] Apply to area(s) once daily as needed for Wound care. [facility] chlorhexidi ne 4 % external liquid 2021-0 9-22 00:00: 00 Yes [id number] Apply to area(s) once daily as needed for Wound care. [facility] chlorhexidi ne 4 % external liquid 2021-0 9-22 00:00: 00 Yes [id number] Apply to area(s) once daily as needed for Wound care. [facility] chlorhexidi ne 4 % external liquid 2021-0 9-22 00:00: 00 Yes [id number] Apply to area(s) once daily as needed for Wound care. [facility] chlorhexidi ne 4 % external liquid 2021-0 9-22 00:00: 00 Yes [id number] Apply to area(s) once daily as needed for Wound care. [facility] chlorhexidi ne 4 % external liquid 2021-0 9-22 00:00: 00 Yes [id number] Apply to area(s) once daily as needed for Wound care. [facility] % external liquid 2021-0 9-22 00:00: 00 Yes [id number] Apply to area(s) once daily as needed for Wound care. [facility] chlorhexidi ne 4 % external liquid 2021-0 9-22 00:00: 00 Yes [id number] Apply to area(s) once daily as needed for Wound care. [facility] chlorhexidi ne 4 % external liquid 2021-0 9-22 00:00: 00 Yes [id number] Apply to area(s) once daily as needed for Wound care. [facility] chlorhexidi ne 4 % external liquid 2021-0 9-22 00:00: 00 Yes [id number] Apply to area(s) once daily as needed for Wound care. [facility] chlorhexidi ne 4 % external liquid 2021-0 9-22 00:00: 00 Yes [id number] Apply to area(s) once daily as needed for Wound care. [facility] chlorhexidi ne 4 % external liquid 2021-0 9-22 00:00: 00 Yes [id number] Apply to area(s) once daily as needed for Wound care. [facility] chlorhexidi ne 4 % external liquid 2021-0 9-22 00:00: 00 Yes [id number] Apply to area(s) once daily as needed for Wound care. [facility] chlorhexidi ne 4 % external liquid 2021-0 9-22 00:00: 00 Yes [id number] Apply to area(s) once daily as needed for Wound care. [facility] chlorhexidi ne 4 % external liquid 2021-0 9-22 00:00: 00 Yes [id number] Apply to area(s) once daily as needed for Wound care. [facility] % external liquid 2021-0 9-22 00:00: 00 Yes [id number] Apply to area(s) once daily as needed for Wound care. [facility] chlorhexidi ne 4 % external liquid 2021-0 9-22 00:00: 00 Yes [id number] Apply to area(s) once daily as needed for Wound care. [facility] 2021-0 9-22 00:00: 00 Yes [id number] Apply to area(s) once daily as needed for Wound care. [facility] external liquid 2021-0 9-22 00:00: 00 Yes [id number] Apply to area(s) once daily as needed for Wound care. [facility] external liquid 2021-0 9-22 00:00: 00 Yes [id number] Apply to area(s) once daily as needed for Wound care. [facility] external liquid 2021-0 9-22 00:00: 00 Yes [id number] Apply to area(s) once daily as needed for Wound care. [facility] chlorhexidi ne 4 % external liquid 2021-0 9-22 00:00: 00 Yes [id number] Apply to area(s) once daily as needed for Wound care. [facility] chlorhex[facility] ne 4 % external liquid 2021-0 9-22 00:00: 00 Yes [id number] Apply to area(s) once daily as needed for Wound care. [facility] chlorhex[facility] ne 4 % external liquid 2021-0 9-22 00:00: 00 Yes [id number] Apply to area(s) once daily as needed for Wound care. [facility] chlorhex[facility] ne 4 % external liquid 2021-0 9-22 00:00: 00 Yes [id number] Apply to area(s) once daily as needed for Wound care. [facility] external liquid 2021-0 9-22 00:00: 00 Yes [id number] Apply to area(s) once daily as needed for Wound care. [facility] external liquid 2021-0 9-22 00:00: 00 Yes [id number] Apply to area(s) once daily as needed for Wound care. [facility] chlorhexidi ne 4 % external liquid 2021-0 9-22 00:00: 00 Yes [id number] Apply to area(s) once daily as needed for Wound care. [facility] external liquid 2021-0 9-22 00:00: 00 Yes [id number] Apply to area(s) once daily as needed for Wound care. [facility] % external liquid 2021-0 9-22 00:00: 00 Yes [id number] Apply to area(s) once daily as needed for Wound care. [facility] % external liquid 2021-0 9-22 00:00: 00 Yes [id number] Apply to area(s) once daily as needed for Wound care. [facility] % external liquid 2021-0 9-22 00:00: 00 Yes [id number] Apply to area(s) once daily as needed for Wound care. [facility] % external liquid 2021-0 9-22 00:00: 00 Yes [id number] Apply to area(s) once daily as needed for Wound care. [facility] % external liquid 2021-0 9-22 00:00: 00 Yes [id number] Apply to area(s) once daily as needed for Wound care. [facility] % external liquid 2021-0 9-22 00:00: 00 Yes [id number] Apply to area(s) once daily as needed for Wound care. [facility] % external liquid 2021-0 9-22 00:00: 00 Yes [id number] Apply to area(s) once daily as needed for Wound care. [facility] % external liquid 2021-0 9-22 00:00: 00 Yes [id number] Apply to area(s) once daily as needed for Wound care. [facility] % external liquid 2021-0 9-22 00:00: 00 Yes [id number] Apply to area(s) once daily as needed for Wound care. [facility] % external liquid 2021-0 9-22 00:00: 00 Yes [id number] Apply to area(s) once daily as needed for Wound care. [facility] % external liquid 2021-0 9-22 00:00: 00 Yes [id number] Apply to area(s) once daily as needed for Wound care. [facility] % external liquid 2021-0 9-22 00:00: 00 Yes [id number] Apply to area(s) once daily as needed for Wound care. [facility] % external liquid 2021-0 9-22 00:00: 00 Yes [id number] Apply to area(s) once daily as needed for Wound care. [facility] % external liquid 2021-0 9-22 00:00: 00 Yes [id number] Apply to area(s) once daily as needed for Wound care. [facility] % external liquid 2021-0 9-22 00:00: 00 Yes [id number] Apply to area(s) once daily as needed for Wound care. [facility] % external liquid 2021-0 9-22 00:00: 00 Yes [id number] Apply to area(s) once daily as needed for Wound care. [facility] % external liquid 2021-0 9-22 00:00: 00 Yes [id number] Apply to area(s) once daily as needed for Wound care. [facility] % external liquid 2021-0 9-22 00:00: 00 Yes [id number] Apply to area(s) once daily as needed for Wound care. [facility] % external liquid 2021-0 9-22 00:00: 00 Yes [id number] Apply to area(s) once daily as needed for Wound care. [facility] % external liquid 2021-0 9-22 00:00: 00 Yes [id number] Apply to area(s) once daily as needed for Wound care. [facility] % external liquid 2021-0 9-22 00:00: 00 Yes [id number] Apply to area(s) once daily as needed for Wound care. [facility] % external liquid 2021-0 9-22 00:00: 00 Yes [id number] Apply to area(s) once daily as needed for Wound care. [facility] % external liquid 2021-0 9-22 00:00: 00 Yes [id number] Apply to area(s) once daily as needed for Wound care. [facility] % external liquid 2021-0 9-22 00:00: 00 Yes [id number] Apply to area(s) once daily as needed for Wound care. [facility] % external liquid 2021-0 9-22 00:00: 00 Yes [id number] Apply to area(s) once daily as needed for Wound care. [facility] chlorhex[facility] ne 4 % external liquid 2021-0 9-22 00:00: 00 Yes [id number] Apply to area(s) once daily as needed for Wound care. [facility] chlorhex[facility] ne 4 % external liquid 2021-0 9-22 00:00: 00 Yes [id number] Apply to area(s) once daily as needed for Wound care. [facility] % external liquid 2021-0 9-22 00:00: 00 Yes [id number] Apply to area(s) once daily as needed for Wound care. [facility] % external liquid 2021-0 9-22 00:00: 00 Yes [id number] Apply to area(s) once daily as needed for Wound care. [facility] % external liquid 2021-0 9-22 00:00: 00 Yes [id number] Apply to area(s) once daily as needed for Wound care. [facility] % external liquid 2021-0 9-22 00:00: 00 Yes [id number] Apply to area(s) once daily as needed for Wound care. [facility] % external liquid 2021-0 9-22 00:00: 00 Yes [id number] Apply to area(s) once daily as needed for Wound care. [facility] % external liquid 2021-0 9-22 00:00: 00 Yes [id number] Apply to area(s) once daily as needed for Wound care. [facility] 4 % external liquid 2021-0 9-22 00:00: 00 Yes [id number] Apply to area(s) once daily as needed for Wound care. [facility] % external liquid 2021-0 9-22 00:00: 00 Yes [id number] Apply to area(s) once daily as needed for Wound care. [facility] % external liquid 2021-0 9-22 00:00: 00 Yes [id number] Apply to area(s) once daily as needed for Wound care. [facility] chlorhex[facility] ne 4 % external liquid 2021-0 9-22 00:00: 00 Yes [id number] Apply to area(s) once daily as needed for Wound care. [facility] % external liquid 2021-0 9-22 00:00: 00 Yes [id number] Apply to area(s) once daily as needed for Wound care. [facility] ne 4 % external liquid 2021-0 9-22 00:00: 00 Yes [id number] Apply to area(s) once daily as needed for Wound care. [facility] % external liquid 2021-0 9-22 00:00: 00 Yes [id number] Apply to area(s) once daily as needed for Wound care. [facility] % external liquid 2021-0 9-22 00:00: 00 Yes [id number] Apply to area(s) once daily as needed for Wound care. [facility] % external liquid 2021-0 9-22 00:00: 00 Yes [id number] Apply to area(s) once daily as needed for Wound care. [facility] ne 4 % external liquid 2021-0 9-22 00:00: 00 Yes [id number] Apply to area(s) once daily as needed for Wound care. [facility] % external liquid 2021-0 9-22 00:00: 00 Yes [id number] Apply to area(s) once daily as needed for Wound care. [facility] % external liquid 2021-0 9-22 00:00: 00 Yes [id number] Apply to area(s) once daily as needed for Wound care. [facility] % external liquid 2021-0 9-22 00:00: 00 Yes [id number] Apply to area(s) once daily as needed for Wound care. [facility] ne 4 % external liquid 2021-0 9-22 00:00: 00 Yes [id number] Apply to area(s) once daily as needed for Wound care. [facility] ne 4 % external liquid 2021-0 9-22 00:00: 00 Yes [id number] Apply to area(s) once daily as needed for Wound care. [facility] ne 4 % external liquid 2021-0 9-22 00:00: 00 Yes [id number] Apply to area(s) once daily as needed for Wound care. [facility]hex[facility] ne 4 % external liquid 2021-0 9-22 00:00: 00 Yes [id number] Apply to area(s) once daily as needed for Wound care. [facility] ne 4 % external liquid 2021-0 9-22 00:00: 00 Yes [id number] Apply to area(s) once daily as needed for Wound care. [facility] % external liquid 2021-0 9-22 00:00: 00 Yes [id number] Apply to area(s) once daily as needed for Wound care. [facility] ne 4 % external liquid 2021-0 9-22 00:00: 00 Yes [id number] Apply to area(s) once daily as needed for Wound care. [facility] chlorhex[facility] ne 4 % external liquid 2021-0 9-22 00:00: 00 Yes [id number] Apply to area(s) once daily as needed for Wound care. [facility] % external liquid 2021-0 9-22 00:00: 00 Yes [id number] Apply to area(s) once daily as needed for Wound care. [facility] % external liquid 2021-0 9-22 00:00: 00 Yes [id number] Apply to area(s) once daily as needed for Wound care. [facility] % external liquid 2021-0 9-22 00:00: 00 Yes [id number] Apply to area(s) once daily as needed for Wound care. [facility] ne 4 % external liquid 2021-0 9-22 00:00: 00 Yes [id number] Apply to area(s) once daily as needed for Wound care. [facility]hex[facility] ne 4 % external liquid 2021-0 9-22 00:00: 00 Yes [id number] Apply to area(s) once daily as needed for Wound care. [facility] % external liquid 2021-0 9-22 00:00: 00 Yes [id number] Apply to area(s) once daily as needed for Wound care. [facility]hex[facility] ne 4 % external liquid 2021-0 9-22 00:00: 00 Yes [id number] Apply to area(s) once daily as needed for Wound care. [facility] % external liquid 2021-0 9-22 00:00: 00 Yes [id number] Apply to area(s) once daily as needed for Wound care. [facility] 4 % external liquid 2021-0 9-22 00:00: 00 Yes [id number] Apply to area(s) once daily as needed for Wound care. [facility] ne 4 % external liquid 2021-0 9-22 00:00: 00 Yes [id number] Apply to area(s) once daily as needed for Wound care. [facility] % external liquid 2021-0 9-22 00:00: 00 Yes [id number] Apply to area(s) once daily as needed for Wound care. [facility] % external liquid 2021-0 9-22 00:00: 00 Yes [id number] Apply to area(s) once daily as needed for Wound care. [facility] % external liquid 2021-0 9-22 00:00: 00 Yes [id number] Apply to area(s) once daily as needed for Wound care. [facility] % external liquid 2021-0 9-22 00:00: 00 Yes [id number] Apply to area(s) once daily as needed for Wound care. [facility] ne 4 % external liquid 2021-0 9-22 00:00: 00 Yes [id number] Apply to area(s) once daily as needed for Wound care. [facility] ne 4 % external liquid 2021-0 9-22 00:00: 00 Yes [id number] Apply to area(s) once daily as needed for Wound care. [facility] % external liquid 2021-0 9-22 00:00: 00 Yes [id number] Apply to area(s) once daily as needed for Wound care. [facility] ne 4 % external liquid 2021-0 9-22 00:00: 00 Yes [id number] Apply to area(s) once daily as needed for Wound care. [facility] % external liquid 2021-0 9-22 00:00: 00 Yes [id number] Apply to area(s) once daily as needed for Wound care. [facility] 4 % external liquid 2021-0 9-22 00:00: 00 Yes [id number] Apply to area(s) once daily as needed for Wound care. [facility] 4 % external liquid 2021-0 9-22 00:00: 00 Yes [id number] Apply to area(s) once daily as needed for Wound care. [facility] % external liquid 2021-0 9-22 00:00: 00 Yes [id number] Apply to area(s) once daily as needed for Wound care. [facility] 4 % external liquid 2021-0 9-22 00:00: 00 Yes [id number] Apply to area(s) once daily as needed for Wound care. [facility] % external liquid 2021-0 9-22 00:00: 00 Yes [id number] Apply to area(s) once daily as needed for Wound care. [facility]hex[facility] ne 4 % external liquid 2021-0 9-22 00:00: 00 Yes [id number] Apply to area(s) once daily as needed for Wound care. [facility] ne 4 % external liquid 2021-0 9-22 00:00: 00 Yes [id number] Apply to area(s) once daily as needed for Wound care. [facility]hex[facility] ne 4 % external liquid 2021-0 9-22 00:00: 00 Yes [id number] Apply to area(s) once daily as needed for Wound care. [facility] ne 4 % external liquid 2021-0 9-22 00:00: 00 Yes [id number] Apply to area(s) once daily as needed for Wound care. [facility] ne 4 % external liquid 2021-0 9-22 00:00: 00 Yes [id number] Apply to area(s) once daily as needed for Wound care. [facility] ne 4 % external liquid 2021-0 9-22 00:00: 00 Yes [id number] Apply to area(s) once daily as needed for Wound care. [facility] % external liquid 2021-0 9-22 00:00: 00 Yes [id number] Apply to area(s) once daily as needed for Wound care. [facility] ne 4 % external liquid 2021-0 9-22 00:00: 00 Yes [id number] Apply to area(s) once daily as needed for Wound care. [facility] % external liquid 2021-0 9-22 00:00: 00 Yes [id number] Apply to area(s) once daily as needed for Wound care. [facility] 4 % external liquid 2021-0 9-22 00:00: 00 Yes [id number] Apply to area(s) once daily as needed for Wound care. [facility] % external liquid 2021-0 9-22 00:00: 00 Yes [id number] Apply to area(s) once daily as needed for Wound care. [facility] % external liquid 2021-0 9-22 00:00: 00 Yes [id number] Apply to area(s) once daily as needed for Wound care. [facility] % external liquid 2021-0 9-22 00:00: 00 Yes [id number] Apply to area(s) once daily as needed for Wound care. [facility] 4 % external liquid 2021-0 9-22 00:00: 00 Yes [id number] Apply to area(s) once daily as needed for Wound care. [facility] 4 % external liquid 2021-0 9-22 00:00: 00 Yes [id number] Apply to area(s) once daily as needed for Wound care. [facility] 4 % external liquid 2021-0 9-22 00:00: 00 Yes [id number] Apply to area(s) once daily as needed for Wound care. [facility] % external liquid 2021-0 9-22 00:00: 00 Yes [id number] Apply to area(s) once daily as needed for Wound care. [facility] 4 % external liquid 2021-0 9-22 00:00: 00 Yes [id number] Apply to area(s) once daily as needed for Wound care. [facility] % external liquid 2021-0 9-22 00:00: 00 Yes [id number] Apply to area(s) once daily as needed for Wound care. [facility] 4 % external liquid 2021-0 9-22 00:00: 00 Yes [id number] Apply to area(s) once daily as needed for Wound care. [facility] % external liquid 2021-0 9-22 00:00: 00 Yes [id number] Apply to area(s) once daily as needed for Wound care. [facility] % external liquid 2021-0 9-22 00:00: 00 Yes [id number] Apply to area(s) once daily as needed for Wound care. [facility] % external liquid 2021-0 9-22 00:00: 00 Yes [id number] Apply to area(s) once daily as needed for Wound care. [facility] 4 % external liquid 2021-0 9-22 00:00: 00 Yes [id number] Apply to area(s) once daily as needed for Wound care. [facility] 4 % external liquid 2021-0 9-22 00:00: 00 Yes [id number] Apply to area(s) once daily as needed for Wound care. [facility] 4 % external liquid 2021-0 9-22 00:00: 00 Yes [id number] Apply to area(s) once daily as needed for Wound care. [facility] % external liquid 2021-0 9-22 00:00: 00 Yes [id number] Apply to area(s) once daily as needed for Wound care. [facility] 4 % external liquid 2021-0 9-22 00:00: 00 Yes [id number] Apply to area(s) once daily as needed for Wound care. [facility] 4 % external liquid 2021-0 9-22 00:00: 00 Yes [id number] Apply to area(s) once daily as needed for Wound care. [facility] 4 % external liquid 2021-0 9-22 00:00: 00 Yes [id number] Apply to area(s) once daily as needed for Wound care. [facility] 4 % external liquid 2021-0 9-22 00:00: 00 Yes [id number] Apply to area(s) once daily as needed for Wound care. [facility] % external liquid 2021-0 9-22 00:00: 00 Yes [id number] Apply to area(s) once daily as needed for Wound care. [facility] chlorhexidi ne 4 % external liquid 2021-0 9-22 00:00: 00 Yes [id number] Apply to area(s) once daily as needed for Wound care. [facility] % external liquid 2021-0 9-22 00:00: 00 Yes [id number] Apply to area(s) once daily as needed for Wound care. [facility] 4 % external liquid 2021-0 9-22 00:00: 00 Yes [id number] Apply to area(s) once daily as needed for Wound care. [facility] % external liquid 2021-0 9-22 00:00: 00 Yes [id number] Apply to area(s) once daily as needed for Wound care. [facility] % external liquid 2021-0 9-22 00:00: 00 Yes [id number] Apply to area(s) once daily as needed for Wound care. [facility] % external liquid 2021-0 9-22 00:00: 00 Yes [id number] Apply to area(s) once daily as needed for Wound care. [facility] % external liquid 2021-0 9-22 00:00: 00 Yes [id number] Apply to area(s) once daily as needed for Wound care. [facility] 4 % external liquid 2021-0 9-22 00:00: 00 Yes [id number] Apply to area(s) once daily as needed for Wound care. [facility] % external liquid 2021-0 9-22 00:00: 00 Yes [id number] Apply to area(s) once daily as needed for Wound care. [facility] ne 4 % external liquid 2021-0 9-22 00:00: 00 Yes [id number] Apply to area(s) once daily as needed for Wound care. [facility] ne 4 % external liquid 2021-0 9-22 00:00: 00 Yes [id number] Apply to area(s) once daily as needed for Wound care. [facility] ne 4 % external liquid 2021-0 9-22 00:00: 00 Yes [id number] Apply to area(s) once daily as needed for Wound care. [facility] ne 4 % external liquid 2021-0 9-22 00:00: 00 Yes [id number] Apply to area(s) once daily as needed for Wound care. [facility] chlorhexidi ne 4 % external liquid 2021-0 9-22 00:00: 00 Yes [id number] Apply to area(s) once daily as needed for Wound care. [facility] chlorhexidi ne 4 % external liquid 2021-0 9-22 00:00: 00 07-09 00:00 :00 No [id number] Apply to area(s) once daily as needed for Wound care. [facility] chlorhexidi ne 4 % external liquid 2021-0 9-22 00:00: 00 07-09 00:00 :00 No [id number] Apply to area(s) once daily as needed for Wound care. [facility] ONETOUCH DELICA PLUS LANCET 30 gauge Misc 2021-0 7-27 00:00: 00 Yes [id number] Use as directed for twice a day glucose monitoring for ICD E11.9 [facility] ONETOUCH DELICA PLUS LANCET 30 gauge Misc 2021-0 7-27 00:00: 00 Yes [id number] Use as directed for twice a day glucose monitoring for ICD E11.9 [facility] ONETOUCH DELICA PLUS LANCET 30 gauge Misc 2021-0 7-27 00:00: 00 Yes [id number] Use as directed for twice a day glucose monitoring for ICD E11.9 [facility] ONETOUCH DELICA PLUS LANCET 30 gauge Misc 2021-0 7-27 00:00: 00 Yes [id number] Use as directed for twice a day glucose monitoring for ICD E11.9 [facility] ONETOUCH DELICA PLUS LANCET 30 gauge Misc 2021-0 7-27 00:00: 00 Yes [id number] Use as directed for twice a day glucose monitoring for ICD E11.9 [facility] ONETOUCH DELICA PLUS LANCET 30 gauge Misc 2021-0 7-27 00:00: 00 Yes [id number] Use as directed for twice a day glucose monitoring for ICD E11.9 [facility] ONETOUCH DELICA PLUS LANCET 30 gauge Misc 2021-0 7-27 00:00: 00 Yes [id number] Use as directed for twice a day glucose monitoring for ICD E11.9 [facility] ONETOUCH DELICA PLUS LANCET 30 gauge Misc 2021-0 7-27 00:00: 00 Yes [id number] Use as directed for twice a day glucose monitoring for ICD E11.9 [facility] ONETOUCH DELICA PLUS LANCET 30 gauge Misc 2021-0 7-27 00:00: 00 Yes [id number] Use as directed for twice a day glucose monitoring for ICD E11.9 [facility] ONETOUCH DELICA PLUS LANCET 30 gauge Misc 2021-0 7-27 00:00: 00 Yes [id number] Use as directed for twice a day glucose monitoring for ICD E11.9 [facility] ONETOUCH DELICA PLUS LANCET 30 gauge Misc 2021-0 7-27 00:00: 00 Yes [id number] Use as directed for twice a day glucose monitoring for ICD E11.9 [facility] ONETOUCH DELICA PLUS LANCET 30 gauge Misc 2021-0 7-27 00:00: 00 Yes [id number] Use as directed for twice a day glucose monitoring for ICD E11.9 [facility] ONETOUCH DELICA PLUS LANCET 30 gauge Misc 2021-0 7-27 00:00: 00 Yes [id number] Use as directed for twice a day glucose monitoring for ICD E11.9 [facility] ONETOUCH DELICA PLUS LANCET 30 gauge Misc 2021-0 7-27 00:00: 00 Yes [id number] Use as directed for twice a day glucose monitoring for ICD E11.9 [facility] ONETOUCH DELICA PLUS LANCET 30 gauge Misc 2021-0 7-27 00:00: 00 Yes [id number] Use as directed for twice a day glucose monitoring for ICD E11.9 [facility] ONETOUCH DELICA PLUS LANCET 30 gauge Misc 2021-0 7-27 00:00: 00 Yes [id number] Use as directed for twice a day glucose monitoring for ICD E11.9 [facility] ONETOUCH DELICA PLUS LANCET 30 gauge Misc 2021-0 7-27 00:00: 00 Yes [id number] Use as directed for twice a day glucose monitoring for ICD E11.9 [facility] ONETOUCH DELICA PLUS LANCET 30 gauge Misc 2021-0 7-27 00:00: 00 Yes [id number] Use as directed for twice a day glucose monitoring for ICD E11.9 [facility] ONETOUCH DELICA PLUS LANCET 30 gauge Misc 2021-0 7-27 00:00: 00 Yes [id number] Use as directed for twice a day glucose monitoring for ICD E11.9 [facility] ONETOUCH DELICA PLUS LANCET 30 gauge Misc 2021-0 7-27 00:00: 00 Yes [id number] Use as directed for twice a day glucose monitoring for ICD E11.9 [facility] ONETOUCH DELICA PLUS LANCET 30 gauge Misc 2021-0 7-27 00:00: 00 Yes [id number] Use as directed for twice a day glucose monitoring for ICD E11.9 [facility] ONETOUCH DELICA PLUS LANCET 30 gauge Misc 2021-0 7-27 00:00: 00 Yes [id number] Use as directed for twice a day glucose monitoring for ICD E11.9 [facility] ONETOUCH DELICA PLUS LANCET 30 gauge Misc 2021-0 7-27 00:00: 00 Yes [id number] Use as directed for twice a day glucose monitoring for ICD E11.9 [facility] ONETOUCH DELICA PLUS LANCET 30 gauge Misc 2021-0 7-27 00:00: 00 Yes [id number] Use as directed for twice a day glucose monitoring for ICD E11.9 [facility] ONETOUCH DELICA PLUS LANCET 30 gauge Misc 2021-0 7-27 00:00: 00 Yes [id number] Use as directed for twice a day glucose monitoring for ICD E11.9 [facility] ONETOUCH DELICA PLUS LANCET 30 gauge Misc 2021-0 7-27 00:00: 00 Yes [id number] Use as directed for twice a day glucose monitoring for ICD E11.9 [facility] ONETOUCH DELICA PLUS LANCET 30 gauge Misc 2021-0 7-27 00:00: 00 Yes [id number] Use as directed for twice a day glucose monitoring for ICD E11.9 [facility] ONETOUCH DELICA PLUS LANCET 30 gauge Misc 2021-0 7-27 00:00: 00 Yes [id number] Use as directed for twice a day glucose monitoring for ICD E11.9 [facility] ONETOUCH DELICA PLUS LANCET 30 gauge Misc 2021-0 7-27 00:00: 00 Yes [id number] Use as directed for twice a day glucose monitoring for ICD E11.9 [facility] ONETOUCH DELICA PLUS LANCET 30 gauge Misc 2021-0 7-27 00:00: 00 Yes [id number] Use as directed for twice a day glucose monitoring for ICD E11.9 [facility] ONETOUCH DELICA PLUS LANCET 30 gauge Misc 2021-0 7-27 00:00: 00 Yes [id number] Use as directed for twice a day glucose monitoring for ICD E11.9 [facility] ONETOUCH DELICA PLUS LANCET 30 gauge Misc 2021-0 7-27 00:00: 00 Yes [id number] Use as directed for twice a day glucose monitoring for ICD E11.9 [facility] ONETOUCH DELICA PLUS LANCET 30 gauge Misc 2021-0 7-27 00:00: 00 Yes [id number] Use as directed for twice a day glucose monitoring for ICD E11.9 [facility] ONETOUCH DELICA PLUS LANCET 30 gauge Misc 2021-0 7-27 00:00: 00 Yes [id number] Use as directed for twice a day glucose monitoring for ICD E11.9 [facility] ONETOUCH DELICA PLUS LANCET 30 gauge Misc 2021-0 7-27 00:00: 00 Yes [id number] Use as directed for twice a day glucose monitoring for ICD E11.9 [facility] ONETOUCH DELICA PLUS LANCET 30 gauge Misc 2021-0 7-27 00:00: 00 Yes [id number] Use as directed for twice a day glucose monitoring for ICD E11.9 [facility] ONETOUCH DELICA PLUS LANCET 30 gauge Misc 2021-0 7-27 00:00: 00 Yes [id number] Use as directed for twice a day glucose monitoring for ICD E11.9 [facility] ONETOUCH DELICA PLUS LANCET 30 gauge Misc 2021-0 7-27 00:00: 00 Yes [id number] Use as directed for twice a day glucose monitoring for ICD E11.9 [facility] ONETOUCH DELICA PLUS LANCET 30 gauge Misc 2021-0 7-27 00:00: 00 Yes [id number] Use as directed for twice a day glucose monitoring for ICD E11.9 [facility] ONETOUCH DELICA PLUS LANCET 30 gauge Misc 2021-0 7-27 00:00: 00 Yes [id number] Use as directed for twice a day glucose monitoring for ICD E11.9 [facility] ONETOUCH DELICA PLUS LANCET 30 gauge Misc 2021-0 7-27 00:00: 00 Yes [id number] Use as directed for twice a day glucose monitoring for ICD E11.9 [facility] ONETOUCH DELICA PLUS LANCET 30 gauge Misc 2021-0 7-27 00:00: 00 Yes [id number] Use as directed for twice a day glucose monitoring for ICD E11.9 [facility] ONETOUCH DELICA PLUS LANCET 30 gauge Misc 2021-0 7-27 00:00: 00 Yes [id number] Use as directed for twice a day glucose monitoring for ICD E11.9 [facility] ONETOUCH DELICA PLUS LANCET 30 gauge Misc 2021-0 7-27 00:00: 00 Yes [id number] Use as directed for twice a day glucose monitoring for ICD E11.9 [facility] ONETOUCH DELICA PLUS LANCET 30 gauge Misc 2021-0 7-27 00:00: 00 Yes [id number] Use as directed for twice a day glucose monitoring for ICD E11.9 [facility] ONETOUCH DELICA PLUS LANCET 30 gauge Misc 2021-0 7-27 00:00: 00 Yes [id number] Use as directed for twice a day glucose monitoring for ICD E11.9 [facility] ONETOUCH DELICA PLUS LANCET 30 gauge Misc 2021-0 7-27 00:00: 00 Yes [id number] Use as directed for twice a day glucose monitoring for ICD E11.9 [facility] ONETOUCH DELICA PLUS LANCET 30 gauge Misc 2021-0 7-27 00:00: 00 Yes [id number] Use as directed for twice a day glucose monitoring for ICD E11.9 [facility] ONETOUCH DELICA PLUS LANCET 30 gauge Misc 2021-0 7-27 00:00: 00 Yes [id number] Use as directed for twice a day glucose monitoring for ICD E11.9 [facility] ONETOUCH DELICA PLUS LANCET 30 gauge Misc 2021-0 7-27 00:00: 00 Yes [id number] Use as directed for twice a day glucose monitoring for ICD E11.9 [facility] ONETOUCH DELICA PLUS LANCET 30 gauge Misc 2021-0 7-27 00:00: 00 Yes [id number] Use as directed for twice a day glucose monitoring for ICD E11.9 [facility] ONETOUCH DELICA PLUS LANCET 30 gauge Misc 2021-0 7-27 00:00: 00 Yes [id number] Use as directed for twice a day glucose monitoring for ICD E11.9 [facility] ONETOUCH DELICA PLUS LANCET 30 gauge Misc 2021-0 7-27 00:00: 00 Yes [id number] Use as directed for twice a day glucose monitoring for ICD E11.9 [facility] ONETOUCH DELICA PLUS LANCET 30 gauge Misc 2021-0 7-27 00:00: 00 Yes [id number] Use as directed for twice a day glucose monitoring for ICD E11.9 [facility] ONETOUCH DELICA PLUS LANCET 30 gauge Misc 2021-0 7-27 00:00: 00 Yes [id number] Use as directed for twice a day glucose monitoring for ICD E11.9 [facility] ONETOUCH DELICA PLUS LANCET 30 gauge Misc 2021-0 7-27 00:00: 00 Yes [id number] Use as directed for twice a day glucose monitoring for ICD E11.9 [facility] ONETOUCH DELICA PLUS LANCET 30 gauge Misc 2021-0 7-27 00:00: 00 Yes [id number] Use as directed for twice a day glucose monitoring for ICD E11.9 [facility] ONETOUCH DELICA PLUS LANCET 30 gauge Misc 2021-0 7-27 00:00: 00 Yes [id number] Use as directed for twice a day glucose monitoring for ICD E11.9 [facility] ONETOUCH DELICA PLUS LANCET 30 gauge Misc 2021-0 7-27 00:00: 00 Yes [id number] Use as directed for twice a day glucose monitoring for ICD E11.9 [facility] ONETOUCH DELICA PLUS LANCET 30 gauge Misc 2021-0 7-27 00:00: 00 Yes [id number] Use as directed for twice a day glucose monitoring for ICD E11.9 [facility] ONETOUCH DELICA PLUS LANCET 30 gauge Misc 2021-0 7-27 00:00: 00 Yes [id number] Use as directed for twice a day glucose monitoring for ICD E11.9 [facility] ONETOUCH DELICA PLUS LANCET 30 gauge Misc 2021-0 7-27 00:00: 00 Yes [id number] Use as directed for twice a day glucose monitoring for ICD E11.9 [facility] ONETOUCH DELICA PLUS LANCET 30 gauge Misc 2021-0 7-27 00:00: 00 Yes [id number] Use as directed for twice a day glucose monitoring for ICD E11.9 [facility] ONETOUCH DELICA PLUS LANCET 30 gauge Misc 2021-0 7-27 00:00: 00 Yes [id number] Use as directed for twice a day glucose monitoring for ICD E11.9 [facility] ONETOUCH DELICA PLUS LANCET 30 gauge Misc 2021-0 7-27 00:00: 00 Yes [id number] Use as directed for twice a day glucose monitoring for ICD E11.9 [facility] ONETOUCH DELICA PLUS LANCET 30 gauge Misc 2021-0 7-27 00:00: 00 Yes [id number] Use as directed for twice a day glucose monitoring for ICD E11.9 [facility] ONETOUCH DELICA PLUS LANCET 30 gauge Misc 2021-0 7-27 00:00: 00 Yes [id number] Use as directed for twice a day glucose monitoring for ICD E11.9 [facility] ONETOUCH DELICA PLUS LANCET 30 gauge Misc 2021-0 7-27 00:00: 00 Yes [id number] Use as directed for twice a day glucose monitoring for ICD E11.9 [facility] ONETOUCH DELICA PLUS LANCET 30 gauge Misc 2021-0 7-27 00:00: 00 Yes [id number] Use as directed for twice a day glucose monitoring for ICD E11.9 [facility] ONETOUCH DELICA PLUS LANCET 30 gauge Misc 2021-0 7-27 00:00: 00 Yes [id number] Use as directed for twice a day glucose monitoring for ICD E11.9 [facility] ONETOUCH DELICA PLUS LANCET 30 gauge Misc 2021-0 7-27 00:00: 00 Yes [id number] Use as directed for twice a day glucose monitoring for ICD E11.9 [facility] ONETOUCH DELICA PLUS LANCET 30 gauge Misc 2021-0 7-27 00:00: 00 Yes [id number] Use as directed for twice a day glucose monitoring for ICD E11.9 [facility] ONETOUCH DELICA PLUS LANCET 30 gauge Misc 2021-0 7-27 00:00: 00 Yes [id number] Use as directed for twice a day glucose monitoring for ICD E11.9 [facility] ONETOUCH DELICA PLUS LANCET 30 gauge Misc 2021-0 7-27 00:00: 00 Yes [id number] Use as directed for twice a day glucose monitoring for ICD E11.9 [facility] ONETOUCH DELICA PLUS LANCET 30 gauge Misc 2021-0 7-27 00:00: 00 Yes [id number] Use as directed for twice a day glucose monitoring for ICD E11.9 [facility] ONETOUCH DELICA PLUS LANCET 30 gauge Misc 2021-0 7-27 00:00: 00 Yes [id number] Use as directed for twice a day glucose monitoring for ICD E11.9 [facility] ONETOUCH DELICA PLUS LANCET 30 gauge Misc 2021-0 7-27 00:00: 00 Yes [id number] Use as directed for twice a day glucose monitoring for ICD E11.9 [facility] ONETOUCH DELICA PLUS LANCET 30 gauge Misc 2021-0 7-27 00:00: 00 Yes [id number] Use as directed for twice a day glucose monitoring for ICD E11.9 [facility] ONETOUCH DELICA PLUS LANCET 30 gauge Misc 2021-0 7-27 00:00: 00 Yes [id number] Use as directed for twice a day glucose monitoring for ICD E11.9 [facility] ONETOUCH DELICA PLUS LANCET 30 gauge Misc 2021-0 7-27 00:00: 00 Yes [id number] Use as directed for twice a day glucose monitoring for ICD E11.9 [facility] ONETOUCH DELICA PLUS LANCET 30 gauge Misc 2021-0 7-27 00:00: 00 Yes [id number] Use as directed for twice a day glucose monitoring for ICD E11.9 [facility] ONETOUCH DELICA PLUS LANCET 30 gauge Misc 2021-0 7-27 00:00: 00 Yes [id number] Use as directed for twice a day glucose monitoring for ICD E11.9 [facility] ONETOUCH DELICA PLUS LANCET 30 gauge Misc 2021-0 7-27 00:00: 00 Yes [id number] Use as directed for twice a day glucose monitoring for ICD E11.9 [facility] ONETOUCH DELICA PLUS LANCET 30 gauge Misc 2021-0 7-27 00:00: 00 Yes [id number] Use as directed for twice a day glucose monitoring for ICD E11.9 [facility] ONETOUCH DELICA PLUS LANCET 30 gauge Misc 2021-0 7-27 00:00: 00 Yes [id number] Use as directed for twice a day glucose monitoring for ICD E11.9 [facility] ONETOUCH DELICA PLUS LANCET 30 gauge Misc 2021-0 7-27 00:00: 00 Yes [id number] Use as directed for twice a day glucose monitoring for ICD E11.9 [facility] ONETOUCH DELICA PLUS LANCET 30 gauge Misc 2021-0 7-27 00:00: 00 Yes [id number] Use as directed for twice a day glucose monitoring for ICD E11.9 [facility] ONETOUCH DELICA PLUS LANCET 30 gauge Misc 2021-0 7-27 00:00: 00 Yes [id number] Use as directed for twice a day glucose monitoring for ICD E11.9 [facility] ONETOUCH DELICA PLUS LANCET 30 gauge Misc 2021-0 7-27 00:00: 00 Yes [id number] Use as directed for twice a day glucose monitoring for ICD E11.9 [facility] ONETOUCH DELICA PLUS LANCET 30 gauge Misc 2021-0 7-27 00:00: 00 Yes [id number] Use as directed for twice a day glucose monitoring for ICD E11.9 [facility] ONETOUCH DELICA PLUS LANCET 30 gauge Misc 2021-0 7-27 00:00: 00 Yes [id number] Use as directed for twice a day glucose monitoring for ICD E11.9 [facility] ONETOUCH DELICA PLUS LANCET 30 gauge Misc 2021-0 7-27 00:00: 00 Yes [id number] Use as directed for twice a day glucose monitoring for ICD E11.9 [facility] ONETOUCH DELICA PLUS LANCET 30 gauge Misc 2021-0 7-27 00:00: 00 Yes [id number] Use as directed for twice a day glucose monitoring for ICD E11.9 [facility] ONETOUCH DELICA PLUS LANCET 30 gauge Misc 2021-0 7-27 00:00: 00 Yes [id number] Use as directed for twice a day glucose monitoring for ICD E11.9 [facility] ONETOUCH DELICA PLUS LANCET 30 gauge Misc 2021-0 7-27 00:00: 00 Yes [id number] Use as directed for twice a day glucose monitoring for ICD E11.9 [facility] ONETOUCH DELICA PLUS LANCET 30 gauge Misc 2021-0 7-27 00:00: 00 Yes [id number] Use as directed for twice a day glucose monitoring for ICD E11.9 [facility] ONETOUCH DELICA PLUS LANCET 30 gauge Misc 2021-0 7-27 00:00: 00 Yes [id number] Use as directed for twice a day glucose monitoring for ICD E11.9 [facility] ONETOUCH DELICA PLUS LANCET 30 gauge Misc 2021-0 7-27 00:00: 00 Yes [id number] Use as directed for twice a day glucose monitoring for ICD E11.9 [facility] ONETOUCH DELICA PLUS LANCET 30 gauge Misc 2021-0 7-27 00:00: 00 Yes [id number] Use as directed for twice a day glucose monitoring for ICD E11.9 [facility] ONETOUCH DELICA PLUS LANCET 30 gauge Misc 2021-0 7-27 00:00: 00 Yes [id number] Use as directed for twice a day glucose monitoring for ICD E11.9 [facility] ONETOUCH DELICA PLUS LANCET 30 gauge Misc 2021-0 7-27 00:00: 00 Yes [id number] Use as directed for twice a day glucose monitoring for ICD E11.9 [facility] ONETOUCH DELICA PLUS LANCET 30 gauge Misc 2021-0 7-27 00:00: 00 Yes [id number] Use as directed for twice a day glucose monitoring for ICD E11.9 [facility] ONETOUCH DELICA PLUS LANCET 30 gauge Misc 2021-0 7-27 00:00: 00 Yes [id number] Use as directed for twice a day glucose monitoring for ICD E11.9 [facility] ONETOUCH DELICA PLUS LANCET 30 gauge Misc 2021-0 7-27 00:00: 00 Yes [id number] Use as directed for twice a day glucose monitoring for ICD E11.9 [facility] ONETOUCH DELICA PLUS LANCET 30 gauge Misc 2021-0 7-27 00:00: 00 Yes [id number] Use as directed for twice a day glucose monitoring for ICD E11.9 [facility] ONETOUCH DELICA PLUS LANCET 30 gauge Misc 2021-0 7-27 00:00: 00 Yes [id number] Use as directed for twice a day glucose monitoring for ICD E11.9 [facility] ONETOUCH DELICA PLUS LANCET 30 gauge Misc 2021-0 7-27 00:00: 00 Yes [id number] Use as directed for twice a day glucose monitoring for ICD E11.9 [facility] ONETOUCH DELICA PLUS LANCET 30 gauge Misc 2021-0 7-27 00:00: 00 Yes [id number] Use as directed for twice a day glucose monitoring for ICD E11.9 [facility] ONETOUCH DELICA PLUS LANCET 30 gauge Misc 2021-0 7-27 00:00: 00 Yes [id number] Use as directed for twice a day glucose monitoring for ICD E11.9 [facility] ONETOUCH DELICA PLUS LANCET 30 gauge Misc 2021-0 7-27 00:00: 00 Yes [id number] Use as directed for twice a day glucose monitoring for ICD E11.9 [facility] ONETOUCH DELICA PLUS LANCET 30 gauge Misc 2021-0 7-27 00:00: 00 Yes [id number] Use as directed for twice a day glucose monitoring for ICD E11.9 [facility] ONETOUCH DELICA PLUS LANCET 30 gauge Misc 2021-0 7-27 00:00: 00 Yes [id number] Use as directed for twice a day glucose monitoring for ICD E11.9 [facility] ONETOUCH DELICA PLUS LANCET 30 gauge Misc 2021-0 7-27 00:00: 00 Yes [id number] Use as directed for twice a day glucose monitoring for ICD E11.9 [facility] ONETOUCH DELICA PLUS LANCET 30 gauge Misc 2021-0 7-27 00:00: 00 Yes [id number] Use as directed for twice a day glucose monitoring for ICD E11.9 [facility] ONETOUCH DELICA PLUS LANCET 30 gauge Misc 2021-0 7-27 00:00: 00 Yes [id number] Use as directed for twice a day glucose monitoring for ICD E11.9 [facility] ONETOUCH DELICA PLUS LANCET 30 gauge Misc 2021-0 7-27 00:00: 00 Yes [id number] Use as directed for twice a day glucose monitoring for ICD E11.9 [facility] ONETOUCH DELICA PLUS LANCET 30 gauge Misc 2021-0 7-27 00:00: 00 Yes [id number] Use as directed for twice a day glucose monitoring for ICD E11.9 [facility] ONETOUCH DELICA PLUS LANCET 30 gauge Misc 2021-0 7-27 00:00: 00 Yes [id number] Use as directed for twice a day glucose monitoring for ICD E11.9 [facility] ONETOUCH DELICA PLUS LANCET 30 gauge Misc 2021-0 7-27 00:00: 00 Yes [id number] Use as directed for twice a day glucose monitoring for ICD E11.9 [facility] ONETOUCH DELICA PLUS LANCET 30 gauge Misc 2021-0 7-27 00:00: 00 Yes [id number] Use as directed for twice a day glucose monitoring for ICD E11.9 [facility] ONETOUCH DELICA PLUS LANCET 30 gauge Misc 2021-0 7-27 00:00: 00 Yes [id number] Use as directed for twice a day glucose monitoring for ICD E11.9 [facility] ONETOUCH DELICA PLUS LANCET 30 gauge Misc 2021-0 7-27 00:00: 00 Yes [id number] Use as directed for twice a day glucose monitoring for ICD E11.9 [facility] ONETOUCH DELICA PLUS LANCET 30 gauge Misc 2021-0 7-27 00:00: 00 Yes [id number] Use as directed for twice a day glucose monitoring for ICD E11.9 [facility] ONETOUCH DELICA PLUS LANCET 30 gauge Misc 2021-0 7-27 00:00: 00 Yes [id number] Use as directed for twice a day glucose monitoring for ICD E11.9 [facility] ONETOUCH DELICA PLUS LANCET 30 gauge Misc 2021-0 7-27 00:00: 00 Yes [id number] Use as directed for twice a day glucose monitoring for ICD E11.9 [facility] ONETOUCH DELICA PLUS LANCET 30 gauge Misc 2021-0 7-27 00:00: 00 Yes [id number] Use as directed for twice a day glucose monitoring for ICD E11.9 [facility] ONETOUCH DELICA PLUS LANCET 30 gauge Misc 2021-0 7-27 00:00: 00 Yes [id number] Use as directed for twice a day glucose monitoring for ICD E11.9 [facility] ONETOUCH DELICA PLUS LANCET 30 gauge Misc 2021-0 7-27 00:00: 00 Yes [id number] Use as directed for twice a day glucose monitoring for ICD E11.9 [facility] ONETOUCH DELICA PLUS LANCET 30 gauge Misc 2021-0 7-27 00:00: 00 Yes [id number] Use as directed for twice a day glucose monitoring for ICD E11.9 [facility] ONETOUCH DELICA PLUS LANCET 30 gauge Misc 2021-0 7-27 00:00: 00 Yes [id number] Use as directed for twice a day glucose monitoring for ICD E11.9 [facility] ONETOUCH DELICA PLUS LANCET 30 gauge Misc 2021-0 7-27 00:00: 00 Yes [id number] Use as directed for twice a day glucose monitoring for ICD E11.9 [facility] ONETOUCH DELICA PLUS LANCET 30 gauge Misc 2021-0 7-27 00:00: 00 Yes [id number] Use as directed for twice a day glucose monitoring for ICD E11.9 [facility] ONETOUCH DELICA PLUS LANCET 30 gauge Misc 2021-0 7-27 00:00: 00 Yes [id number] Use as directed for twice a day glucose monitoring for ICD E11.9 [facility] ONETOUCH DELICA PLUS LANCET 30 gauge Misc 2021-0 7-27 00:00: 00 Yes [id number] Use as directed for twice a day glucose monitoring for ICD E11.9 [facility] ONETOUCH DELICA PLUS LANCET 30 gauge Misc 2021-0 7-27 00:00: 00 Yes [id number] Use as directed for twice a day glucose monitoring for ICD E11.9 [facility] ONETOUCH DELICA PLUS LANCET 30 gauge Misc 2021-0 7-27 00:00: 00 Yes [id number] Use as directed for twice a day glucose monitoring for ICD E11.9 [facility] ONETOUCH DELICA PLUS LANCET 30 gauge Misc 2021-0 7-27 00:00: 00 Yes [id number] Use as directed for twice a day glucose monitoring for ICD E11.9 [facility] ONETOUCH DELICA PLUS LANCET 30 gauge Misc 2021-0 7-27 00:00: 00 Yes [id number] Use as directed for twice a day glucose monitoring for ICD E11.9 [facility] ONETOUCH DELICA PLUS LANCET 30 gauge Misc 2021-0 7-27 00:00: 00 Yes [id number] Use as directed for twice a day glucose monitoring for ICD E11.9 [facility] ONETOUCH DELICA PLUS LANCET 30 gauge Misc 2021-0 7-27 00:00: 00 Yes [id number] Use as directed for twice a day glucose monitoring for ICD E11.9 [facility] ONETOUCH DELICA PLUS LANCET 30 gauge Misc 2021-0 7-27 00:00: 00 Yes [id number] Use as directed for twice a day glucose monitoring for ICD E11.9 [facility] ONETOUCH DELICA PLUS LANCET 30 gauge Misc 2021-0 7-27 00:00: 00 Yes [id number] Use as directed for twice a day glucose monitoring for ICD E11.9 [facility] ONETOUCH DELICA PLUS LANCET 30 gauge Misc 2021-0 7-27 00:00: 00 Yes [id number] Use as directed for twice a day glucose monitoring for ICD E11.9 [facility] ONETOUCH DELICA PLUS LANCET 30 gauge Misc 2021-0 7-27 00:00: 00 Yes [id number] Use as directed for twice a day glucose monitoring for ICD E11.9 [facility] ONETOUCH DELICA PLUS LANCET 30 gauge Misc 2021-0 7-27 00:00: 00 Yes [id number] Use as directed for twice a day glucose monitoring for ICD E11.9 [facility] ONETOUCH DELICA PLUS LANCET 30 gauge Misc 2021-0 7-27 00:00: 00 Yes [id number] Use as directed for twice a day glucose monitoring for ICD E11.9 [facility] ONETOUCH DELICA PLUS LANCET 30 gauge Misc 2021-0 7-27 00:00: 00 Yes [id number] Use as directed for twice a day glucose monitoring for ICD E11.9 [facility] ONETOUCH DELICA PLUS LANCET 30 gauge Misc 2021-0 7-27 00:00: 00 Yes [id number] Use as directed for twice a day glucose monitoring for ICD E11.9 [facility] ONETOUCH DELICA PLUS LANCET 30 gauge Misc 2021-0 7-27 00:00: 00 Yes [id number] Use as directed for twice a day glucose monitoring for ICD E11.9 [facility] ONETOUCH DELICA PLUS LANCET 30 gauge Misc 2021-0 7-27 00:00: 00 Yes [id number] Use as directed for twice a day glucose monitoring for ICD E11.9 [facility] ONETOUCH DELICA PLUS LANCET 30 gauge Misc 2021-0 7-27 00:00: 00 Yes [id number] Use as directed for twice a day glucose monitoring for ICD E11.9 [facility] ONETOUCH DELICA PLUS LANCET 30 gauge Misc 2021-0 7-27 00:00: 00 Yes [id number] Use as directed for twice a day glucose monitoring for ICD E11.9 [facility] ONETOUCH DELICA PLUS LANCET 30 gauge Misc 2021-0 7-27 00:00: 00 Yes [id number] Use as directed for twice a day glucose monitoring for ICD E11.9 [facility] ONETOUCH DELICA PLUS LANCET 30 gauge Misc 2021-0 7-27 00:00: 00 Yes [id number] Use as directed for twice a day glucose monitoring for ICD E11.9 [facility] ONETOUCH DELICA PLUS LANCET 30 gauge Misc 2021-0 7-27 00:00: 00 Yes [id number] Use as directed for twice a day glucose monitoring for ICD E11.9 [facility] ONETOUCH DELICA PLUS LANCET 30 gauge Misc 2021-0 7-27 00:00: 00 Yes [id number] Use as directed for twice a day glucose monitoring for ICD E11.9 [facility] ONETOUCH DELICA PLUS LANCET 30 gauge Misc 2021-0 7-27 00:00: 00 Yes [id number] Use as directed for twice a day glucose monitoring for ICD E11.9 [facility] ONETOUCH DELICA PLUS LANCET 30 gauge Misc 2021-0 7-27 00:00: 00 Yes [id number] Use as directed for twice a day glucose monitoring for ICD E11.9 [facility] ONETOUCH DELICA PLUS LANCET 30 gauge Misc 2021-0 7-27 00:00: 00 Yes [id number] Use as directed for twice a day glucose monitoring for ICD E11.9 [facility] ONETOUCH DELICA PLUS LANCET 30 gauge Misc 2021-0 7-27 00:00: 00 Yes [id number] Use as directed for twice a day glucose monitoring for ICD E11.9 [facility] ONETOUCH DELICA PLUS LANCET 30 gauge Misc 2021-0 7-27 00:00: 00 Yes [id number] Use as directed for twice a day glucose monitoring for ICD E11.9 [facility] ONETOUCH DELICA PLUS LANCET 30 gauge Misc 2021-0 7-27 00:00: 00 Yes [id number] Use as directed for twice a day glucose monitoring for ICD E11.9 [facility] ONETOUCH DELICA PLUS LANCET 30 gauge Misc 2021-0 7-27 00:00: 00 Yes [id number] Use as directed for twice a day glucose monitoring for ICD E11.9 [facility] ONETOUCH DELICA PLUS LANCET 30 gauge Misc 2021-0 7-27 00:00: 00 Yes [id number] Use as directed for twice a day glucose monitoring for ICD E11.9 [facility] ONETOUCH DELICA PLUS LANCET 30 gauge Misc 2021-0 7-27 00:00: 00 Yes [id number] Use as directed for twice a day glucose monitoring for ICD E11.9 [facility] ONETOUCH DELICA PLUS LANCET 30 gauge Misc 2021-0 7-27 00:00: 00 Yes [id number] Use as directed for twice a day glucose monitoring for ICD E11.9 [facility] ONETOUCH DELICA PLUS LANCET 30 gauge Misc 2021-0 7-27 00:00: 00 Yes [id number] Use as directed for twice a day glucose monitoring for ICD E11.9 [facility] ONETOUCH DELICA PLUS LANCET 30 gauge Misc 2021-0 7-27 00:00: 00 Yes [id number] Use as directed for twice a day glucose monitoring for ICD E11.9 [facility] ONETOUCH DELICA PLUS LANCET 30 gauge Misc 2021-0 7-27 00:00: 00 Yes [id number] Use as directed for twice a day glucose monitoring for ICD E11.9 [facility] ONETOUCH DELICA PLUS LANCET 30 gauge Misc 2021-0 7-27 00:00: 00 Yes [id number] Use as directed for twice a day glucose monitoring for ICD E11.9 [facility] ONETOUCH DELICA PLUS LANCET 30 gauge Misc 2021-0 7-27 00:00: 00 Yes [id number] Use as directed for twice a day glucose monitoring for ICD E11.9 [facility] ONETOUCH DELICA PLUS LANCET 30 gauge Misc 2021-0 7-27 00:00: 00 Yes [id number] Use as directed for twice a day glucose monitoring for ICD E11.9 [facility] ONETOUCH DELICA PLUS LANCET 30 gauge Misc 2021-0 7-27 00:00: 00 Yes [id number] Use as directed for twice a day glucose monitoring for ICD E11.9 [facility] ONETOUCH DELICA PLUS LANCET 30 gauge Misc 2021-0 7-27 00:00: 00 Yes [id number] Use as directed for twice a day glucose monitoring for ICD E11.9 [facility] ONETOUCH DELICA PLUS LANCET 30 gauge Misc 2021-0 7-27 00:00: 00 Yes [id number] Use as directed for twice a day glucose monitoring for ICD E11.9 [facility] ONETOUCH DELICA PLUS LANCET 30 gauge Misc 2021-0 7-27 00:00: 00 Yes [id number] Use as directed for twice a day glucose monitoring for ICD E11.9 [facility] ONETOUCH DELICA PLUS LANCET 30 gauge Misc 2021-0 7-27 00:00: 00 Yes [id number] Use as directed for twice a day glucose monitoring for ICD E11.9 [facility] ONETOUCH DELICA PLUS LANCET 30 gauge Misc 2021-0 7-27 00:00: 00 Yes [id number] Use as directed for twice a day glucose monitoring for ICD E11.9 [facility] ONETOUCH DELICA PLUS LANCET 30 gauge Misc 2021-0 7-27 00:00: 00 Yes [id number] Use as directed for twice a day glucose monitoring for ICD E11.9 [facility] ONETOUCH DELICA PLUS LANCET 30 gauge Misc 2021-0 7-27 00:00: 00 Yes [id number] Use as directed for twice a day glucose monitoring for ICD E11.9 [facility] ONETOUCH DELICA PLUS LANCET 30 gauge Misc 2021-0 7-27 00:00: 00 Yes [id number] Use as directed for twice a day glucose monitoring for ICD E11.9 [facility] ONETOUCH DELICA PLUS LANCET 30 gauge Misc 2021-0 7-27 00:00: 00 Yes [id number] Use as directed for twice a day glucose monitoring for ICD E11.9 [facility] ONETOUCH DELICA PLUS LANCET 30 gauge Misc 2021-0 7-27 00:00: 00 Yes [id number] Use as directed for twice a day glucose monitoring for ICD E11.9 [facility] ONETOUCH DELICA PLUS LANCET 30 gauge Misc 2021-0 7-27 00:00: 00 Yes [id number] Use as directed for twice a day glucose monitoring for ICD E11.9 [facility] ONETOUCH DELICA PLUS LANCET 30 gauge Misc 2021-0 7-27 00:00: 00 Yes [id number] Use as directed for twice a day glucose monitoring for ICD E11.9 [facility] ONETOUCH DELICA PLUS LANCET 30 gauge Misc 2021-0 7-27 00:00: 00 Yes [id number] Use as directed for twice a day glucose monitoring for ICD E11.9 [facility] ONETOUCH DELICA PLUS LANCET 30 gauge Misc 2021-0 7-27 00:00: 00 Yes [id number] Use as directed for twice a day glucose monitoring for ICD E11.9 [facility] ONETOUCH DELICA PLUS LANCET 30 gauge Misc 2021-0 7-27 00:00: 00 Yes [id number] Use as directed for twice a day glucose monitoring for ICD E11.9 [facility] ONETOUCH DELICA PLUS LANCET 30 gauge Misc 2021-0 7-27 00:00: 00 Yes [id number] Use as directed for twice a day glucose monitoring for ICD E11.9 [facility] ONETOUCH DELICA PLUS LANCET 30 gauge Misc 2021-0 7-27 00:00: 00 Yes [id number] Use as directed for twice a day glucose monitoring for ICD E11.9 [facility] ONETOUCH DELICA PLUS LANCET 30 gauge Misc 2021-0 7-27 00:00: 00 Yes [id number] Use as directed for twice a day glucose monitoring for ICD E11.9 [facility] ONETOUCH DELICA PLUS LANCET 30 gauge Misc 2021-0 7-27 00:00: 00 Yes [id number] Use as directed for twice a day glucose monitoring for ICD E11.9 [facility] ONETOUCH DELICA PLUS LANCET 30 gauge Misc 2021-0 7-27 00:00: 00 Yes [id number] Use as directed for twice a day glucose monitoring for ICD E11.9 [facility] ONETOUCH DELICA PLUS LANCET 30 gauge Misc 2021-0 7-27 00:00: 00 Yes [id number] Use as directed for twice a day glucose monitoring for ICD E11.9 [facility] ONETOUCH DELICA PLUS LANCET 30 gauge Misc 2021-0 7-27 00:00: 00 Yes [id number] Use as directed for twice a day glucose monitoring for ICD E11.9 [facility] ONETOUCH DELICA PLUS LANCET 30 gauge Misc 2021-0 7-27 00:00: 00 Yes [id number] Use as directed for twice a day glucose monitoring for ICD E11.9 [facility] ONETOUCH DELICA PLUS LANCET 30 gauge Misc 2021-0 7-27 00:00: 00 Yes [id number] Use as directed for twice a day glucose monitoring for ICD E11.9 [facility] ONETOUCH DELICA PLUS LANCET 30 gauge Misc 2021-0 7-27 00:00: 00 Yes [id number] Use as directed for twice a day glucose monitoring for ICD E11.9 [facility] ONETOUCH DELICA PLUS LANCET 30 gauge Misc 2021-0 7-27 00:00: 00 Yes [id number] Use as directed for twice a day glucose monitoring for ICD E11.9 [facility] ONETOUCH DELICA PLUS LANCET 30 gauge Misc 2021-0 7-27 00:00: 00 Yes [id number] Use as directed for twice a day glucose monitoring for ICD E11.9 [facility] ONETOUCH DELICA PLUS LANCET 30 gauge Misc 2021-0 7-27 00:00: 00 Yes [id number] Use as directed for twice a day glucose monitoring for ICD E11.9 [facility] ONETOUCH DELICA PLUS LANCET 30 gauge Misc 2021-0 7-27 00:00: 00 Yes [id number] Use as directed for twice a day glucose monitoring for ICD E11.9 [facility] ONETOUCH DELICA PLUS LANCET 30 gauge Misc 2021-0 7-27 00:00: 00 Yes [id number] Use as directed for twice a day glucose monitoring for ICD E11.9 [facility] ONETOUCH DELICA PLUS LANCET 30 gauge Misc 2021-0 7-27 00:00: 00 Yes [id number] Use as directed for twice a day glucose monitoring for ICD E11.9 [facility] ONETOUCH DELICA PLUS LANCET 30 gauge Misc 2021-0 7-27 00:00: 00 Yes [id number] Use as directed for twice a day glucose monitoring for ICD E11.9 [facility] ONETOUCH DELICA PLUS LANCET 30 gauge Misc 2021-0 7-27 00:00: 00 Yes [id number] Use as directed for twice a day glucose monitoring for ICD E11.9 [facility] ONETOUCH DELICA PLUS LANCET 30 gauge Misc 2021-0 7-27 00:00: 00 Yes [id number] Use as directed for twice a day glucose monitoring for ICD E11.9 [facility] ONETOUCH DELICA PLUS LANCET 30 gauge Misc 2021-0 7-27 00:00: 00 Yes [id number] Use as directed for twice a day glucose monitoring for ICD E11.9 [facility] ONETOUCH DELICA PLUS LANCET 30 gauge Misc 2021-0 7-27 00:00: 00 Yes [id number] Use as directed for twice a day glucose monitoring for ICD E11.9 [facility] ONETOUCH DELICA PLUS LANCET 30 gauge Misc 2021-0 7-27 00:00: 00 Yes [id number] Use as directed for twice a day glucose monitoring for ICD E11.9 [facility] ONETOUCH DELICA PLUS LANCET 30 gauge Misc 2021-0 7-27 00:00: 00 Yes [id number] Use as directed for twice a day glucose monitoring for ICD E11.9 [facility] ONETOUCH DELICA PLUS LANCET 30 gauge Misc 2021-0 7-27 00:00: 00 Yes [id number] Use as directed for twice a day glucose monitoring for ICD E11.9 [facility] ONETOUCH DELICA PLUS LANCET 30 gauge Misc 2021-0 7-27 00:00: 00 Yes [id number] Use as directed for twice a day glucose monitoring for ICD E11.9 [facility] ONETOUCH DELICA PLUS LANCET 30 gauge Misc 2021-0 7-27 00:00: 00 Yes [id number] Use as directed for twice a day glucose monitoring for ICD E11.9 [facility] ONETOUCH DELICA PLUS LANCET 30 gauge Misc 2021-0 7-27 00:00: 00 Yes [id number] Use as directed for twice a day glucose monitoring for ICD E11.9 [facility] ONETOUCH DELICA PLUS LANCET 30 gauge Misc 2021-0 7-27 00:00: 00 Yes [id number] Use as directed for twice a day glucose monitoring for ICD E11.9 [facility] ONETOUCH DELICA PLUS LANCET 30 gauge Misc 2021-0 7-27 00:00: 00 Yes [id number] Use as directed for twice a day glucose monitoring for ICD E11.9 [facility] ONETOUCH DELICA PLUS LANCET 30 gauge Misc 2021-0 7-27 00:00: 00 Yes [id number] Use as directed for twice a day glucose monitoring for ICD E11.9 [facility] ONETOUCH DELICA PLUS LANCET 30 gauge Misc 2021-0 7-27 00:00: 00 Yes [id number] Use as directed for twice a day glucose monitoring for ICD E11.9 [facility] ONETOUCH DELICA PLUS LANCET 30 gauge Misc 2021-0 7-27 00:00: 00 Yes [id number] Use as directed for twice a day glucose monitoring for ICD E11.9 [facility] ONETOUCH DELICA PLUS LANCET 30 gauge Misc 2021-0 7-27 00:00: 00 Yes [id number] Use as directed for twice a day glucose monitoring for ICD E11.9 [facility] ONETOUCH DELICA PLUS LANCET 30 gauge Misc 2021-0 7-27 00:00: 00 Yes [id number] Use as directed for twice a day glucose monitoring for ICD E11.9 [facility] ONETOUCH DELICA PLUS LANCET 30 gauge Misc 2021-0 7-27 00:00: 00 Yes [id number] Use as directed for twice a day glucose monitoring for ICD E11.9 [facility] ONETOUCH DELICA PLUS LANCET 30 gauge Misc 2021-0 7-27 00:00: 00 Yes [id number] Use as directed for twice a day glucose monitoring for ICD E11.9 [facility] ONETOUCH DELICA PLUS LANCET 30 gauge Misc 2021-0 7-27 00:00: 00 Yes [id number] Use as directed for twice a day glucose monitoring for ICD E11.9 [facility] ONETOUCH DELICA PLUS LANCET 30 gauge Misc 2021-0 7-27 00:00: 00 Yes [id number] Use as directed for twice a day glucose monitoring for ICD E11.9 [facility] ONETOUCH DELICA PLUS LANCET 30 gauge Misc 2021-0 7-27 00:00: 00 Yes [id number] Use as directed for twice a day glucose monitoring for ICD E11.9 [facility] ONETOUCH DELICA PLUS LANCET 30 gauge Misc 2021-0 7-27 00:00: 00 Yes [id number] Use as directed for twice a day glucose monitoring for ICD E11.9 [facility] ONETOUCH DELICA PLUS LANCET 30 gauge Misc 2021-0 7-27 00:00: 00 Yes [id number] Use as directed for twice a day glucose monitoring for ICD E11.9 [facility] ONETOUCH DELICA PLUS LANCET 30 gauge Misc 2021-0 7-27 00:00: 00 Yes [id number] Use as directed for twice a day glucose monitoring for ICD E11.9 [facility] ONETOUCH DELICA PLUS LANCET 30 gauge Misc 2021-0 7-27 00:00: 00 Yes [id number] Use as directed for twice a day glucose monitoring for ICD E11.9 [facility] ONETOUCH DELICA PLUS LANCET 30 gauge Misc 2021-0 7-27 00:00: 00 Yes [id number] Use as directed for twice a day glucose monitoring for ICD E11.9 [facility] ONETOUCH DELICA PLUS LANCET 30 gauge Misc 2021-0 7-27 00:00: 00 Yes [id number] Use as directed for twice a day glucose monitoring for ICD E11.9 [facility] ONETOUCH DELICA PLUS LANCET 30 gauge Misc 2021-0 7 00:00: 00 Yes [id number] Use as directed for twice a day glucose monitoring for ICD E11.9 [facility] ONETOUCH DELICA PLUS LANCET 30 gauge Misc 2021-0 7 00:00: 00 Yes [id number] Use as directed for twice a day glucose monitoring for ICD E11.9 [facility] ONETOUCH DELICA PLUS LANCET 30 gauge Misc 2021-0 7 00:00: 00 Yes [id number] Use as directed for twice a day glucose monitoring for ICD E11.9 [facility] ONETOUCH DELICA PLUS LANCET 30 gauge Misc 2021-0 7 00:00: 00 Yes [id number] Use as directed for twice a day glucose monitoring for ICD E11.9 [facility] ONETOUCH DELICA PLUS LANCET 30 gauge Misc 1-0 7 00:00: 00 Yes [id number] Use as directed for twice a day glucose monitoring for ICD E11.9 [facility] ONETOUCH DELICA PLUS LANCET 30 gauge Misc 1-0 7 00:00: 00 Yes [id number] Use as directed for twice a day glucose monitoring for ICD E11.9 [facility] ONETOUCH DELICA PLUS LANCET 30 gauge Misc 1-0 7 00:00: 00 Yes [id number] Use as directed for twice a day glucose monitoring for ICD E11.9 [facility] ONETOUCH DELICA PLUS LANCET 30 gauge Misc 2021-0 727 00:00: 00 Yes [id number] Use as directed for twice a day glucose monitoring for ICD E11.9 [facility] diclofenac 75 mg EC tablet 04-04 00:00: 00 Yes [id number] 75mg Take 1 tablet by mouth 2 (two) times daily with meals. [facility] diclofenac 75 mg EC tablet 04-04 00:00: 00 Yes [id number] 75mg Take 1 tablet by mouth 2 (two) times daily with meals. [facility] diclofenac 75 mg EC tablet 04-04 00:00: 00 Yes [id number] 75mg Take 1 tablet by mouth 2 (two) times daily with meals. [facility] diclofenac 75 mg EC tablet 04-04 00:00: 00 Yes [id number] 75mg Take 1 tablet by mouth 2 (two) times daily with meals. [facility] 04-04 00:00: 00 Yes [id number] 75mg Take 1 tablet by mouth 2 (two) times daily with meals. [facility] diclofenac 75 mg EC tablet 04-04 00:00: 00 Yes [id number] 75mg Take 1 tablet by mouth 2 (two) times daily with meals. [facility] diclofenac 75 mg EC tablet 04-04 00:00: 00 Yes [id number] 75mg Take 1 tablet by mouth 2 (two) times daily with meals. [facility] diclofenac 75 mg EC tablet 04-04 00:00: 00 Yes [id number] 75mg Take 1 tablet by mouth 2 (two) times daily with meals. [facility] diclofenac 75 mg EC tablet 04-04 00:00: 00 Yes [id number] 75mg Take 1 tablet by mouth 2 (two) times daily with meals. [facility] diclofenac 75 mg EC tablet 04-04 00:00: 00 Yes [id number] 75mg Take 1 tablet by mouth 2 (two) times daily with meals. [facility] diclofenac 75 mg EC tablet 04-04 00:00: 00 Yes [id number] 75mg Take 1 tablet by mouth 2 (two) times daily with meals. [facility] diclofenac 75 mg EC tablet 04-04 00:00: 00 Yes [id number] 75mg Take 1 tablet by mouth 2 (two) times daily with meals. [facility] diclofenac 75 mg EC tablet 04-04 00:00: 00 Yes [id number] 75mg Take 1 tablet by mouth 2 (two) times daily with meals. [facility] diclofenac 75 mg EC tablet 04-04 00:00: 00 Yes [id number] 75mg Take 1 tablet by mouth 2 (two) times daily with meals. [facility] diclofenac 75 mg EC tablet 04-04 00:00: 00 Yes [id number] 75mg Take 1 tablet by mouth 2 (two) times daily with meals. [facility] diclofenac 75 mg EC tablet 04-04 00:00: 00 Yes [id number] 75mg Take 1 tablet by mouth 2 (two) times daily with meals. [facility] diclofenac 75 mg EC tablet 04-04 00:00: 00 Yes [id number] 75mg Take 1 tablet by mouth 2 (two) times daily with meals. [facility] diclofenac 75 mg EC tablet 04-04 00:00: 00 Yes [id number] 75mg Take 1 tablet by mouth 2 (two) times daily with meals. [facility] diclofenac 75 mg EC tablet 04-04 00:00: 00 Yes [id number] 75mg Take 1 tablet by mouth 2 (two) times daily with meals. [facility] diclofenac 75 mg EC tablet 04-04 00:00: 00 Yes [id number] 75mg Take 1 tablet by mouth 2 (two) times daily with meals. [facility] diclofenac 75 mg EC tablet 04-04 00:00: 00 Yes [id number] 75mg Take 1 tablet by mouth 2 (two) times daily with meals. [facility] diclofenac 75 mg EC tablet 04-04 00:00: 00 Yes [id number] 75mg Take 1 tablet by mouth 2 (two) times daily with meals. [facility] diclofenac 75 mg EC tablet 04-04 00:00: 00 Yes [id number] 75mg Take 1 tablet by mouth 2 (two) times daily with meals. [facility] diclofenac 75 mg EC tablet 04-04 00:00: 00 Yes [id number] 75mg Take 1 tablet by mouth 2 (two) times daily with meals. [facility] diclofenac 75 mg EC tablet 04-04 00:00: 00 Yes [id number] 75mg Take 1 tablet by mouth 2 (two) times daily with meals. [facility] diclofenac 75 mg EC tablet 04-04 00:00: 00 Yes [id number] 75mg Take 1 tablet by mouth 2 (two) times daily with meals. [facility] diclofenac 75 mg EC tablet 04-04 00:00: 00 Yes [id number] 75mg Take 1 tablet by mouth 2 (two) times daily with meals. [facility] diclofenac 75 mg EC tablet 04-04 00:00: 00 Yes [id number] 75mg Take 1 tablet by mouth 2 (two) times daily with meals. [facility] diclofenac 75 mg EC tablet 04-04 00:00: 00 Yes [id number] 75mg Take 1 tablet by mouth 2 (two) times daily with meals. [facility] diclofenac 75 mg EC tablet 04-04 00:00: 00 Yes [id number] 75mg Take 1 tablet by mouth 2 (two) times daily with meals. [facility] diclofenac 75 mg EC tablet 04-04 00:00: 00 Yes [id number] 75mg Take 1 tablet by mouth 2 (two) times daily with meals. [facility] diclofenac 75 mg EC tablet 04-04 00:00: 00 Yes [id number] 75mg Take 1 tablet by mouth 2 (two) times daily with meals. [facility] diclofenac 75 mg EC tablet 04-04 00:00: 00 Yes [id number] 75mg Take 1 tablet by mouth 2 (two) times daily with meals. [facility] diclofenac 75 mg EC tablet 04-04 00:00: 00 Yes [id number] 75mg Take 1 tablet by mouth 2 (two) times daily with meals. [facility] diclofenac 75 mg EC tablet 04-04 00:00: 00 Yes [id number] 75mg Take 1 tablet by mouth 2 (two) times daily with meals. [facility] diclofenac 75 mg EC tablet 04-04 00:00: 00 Yes [id number] 75mg Take 1 tablet by mouth 2 (two) times daily with meals. [facility] diclofenac 75 mg EC tablet 04-04 00:00: 00 Yes [id number] 75mg Take 1 tablet by mouth 2 (two) times daily with meals. [facility] diclofenac 75 mg EC tablet 04-04 00:00: 00 Yes [id number] 75mg Take 1 tablet by mouth 2 (two) times daily with meals. [facility] diclofenac 75 mg EC tablet 04-04 00:00: 00 Yes [id number] 75mg Take 1 tablet by mouth 2 (two) times daily with meals. [facility] diclofenac 75 mg EC tablet 04-04 00:00: 00 Yes [id number] 75mg Take 1 tablet by mouth 2 (two) times daily with meals. [facility]lofenac 75 mg EC tablet 04-04 00:00: 00 Yes [id number] 75mg Take 1 tablet by mouth 2 (two) times daily with meals. [facility] diclofenac 75 mg EC tablet 04-04 00:00: 00 Yes [id number] 75mg Take 1 tablet by mouth 2 (two) times daily with meals. [facility] diclofenac 75 mg EC tablet 04-04 00:00: 00 Yes [id number] 75mg Take 1 tablet by mouth 2 (two) times daily with meals. [facility] diclofenac 75 mg EC tablet 04-04 00:00: 00 Yes [id number] 75mg Take 1 tablet by mouth 2 (two) times daily with meals. [facility] diclofenac 75 mg EC tablet 04-04 00:00: 00 Yes [id number] 75mg Take 1 tablet by mouth 2 (two) times daily with meals. [facility]lofenac 75 mg EC tablet 04-04 00:00: 00 Yes [id number] 75mg Take 1 tablet by mouth 2 (two) times daily with meals. [facility]lofenac 75 mg EC tablet 04-04 00:00: 00 Yes [id number] 75mg Take 1 tablet by mouth 2 (two) times daily with meals. [facility]lofenac 75 mg EC tablet 04-04 00:00: 00 Yes [id number] 75mg Take 1 tablet by mouth 2 (two) times daily with meals. [facility]lofenac 75 mg EC tablet 04-04 00:00: 00 Yes [id number] 75mg Take 1 tablet by mouth 2 (two) times daily with meals. [facility] diclofenac 75 mg EC tablet 04-04 00:00: 00 Yes [id number] 75mg Take 1 tablet by mouth 2 (two) times daily with meals. [facility] diclofenac 75 mg EC tablet 04-04 00:00: 00 Yes [id number] 75mg Take 1 tablet by mouth 2 (two) times daily with meals. [facility]lofenac 75 mg EC tablet 04-04 00:00: 00 Yes [id number] 75mg Take 1 tablet by mouth 2 (two) times daily with meals. [facility]lofenac 75 mg EC tablet 04-04 00:00: 00 Yes [id number] 75mg Take 1 tablet by mouth 2 (two) times daily with meals. [facility]lofenac 75 mg EC tablet 04-04 00:00: 00 Yes [id number] 75mg Take 1 tablet by mouth 2 (two) times daily with meals. [facility] diclofenac 75 mg EC tablet 04-04 00:00: 00 Yes [id number] 75mg Take 1 tablet by mouth 2 (two) times daily with meals. [facility]lofenac 75 mg EC tablet 04-04 00:00: 00 Yes [id number] 75mg Take 1 tablet by mouth 2 (two) times daily with meals. [facility]lofenac 75 mg EC tablet 04-04 00:00: 00 Yes [id number] 75mg Take 1 tablet by mouth 2 (two) times daily with meals. [facility]lofenac 75 mg EC tablet 04-04 00:00: 00 Yes [id number] 75mg Take 1 tablet by mouth 2 (two) times daily with meals. [facility] diclofenac 75 mg EC tablet 04-04 00:00: 00 Yes [id number] 75mg Take 1 tablet by mouth 2 (two) times daily with meals. [facility] diclofenac 75 mg EC tablet 04-04 00:00: 00 Yes [id number] 75mg Take 1 tablet by mouth 2 (two) times daily with meals. [facility] diclofenac 75 mg EC tablet 04-04 00:00: 00 Yes [id number] 75mg Take 1 tablet by mouth 2 (two) times daily with meals. [facility] diclofenac 75 mg EC tablet 04-04 00:00: 00 Yes [id number] 75mg Take 1 tablet by mouth 2 (two) times daily with meals. [facility] diclofenac 75 mg EC tablet 04-04 00:00: 00 Yes [id number] 75mg Take 1 tablet by mouth 2 (two) times daily with meals. [facility] diclofenac 75 mg EC tablet 04-04 00:00: 00 Yes [id number] 75mg Take 1 tablet by mouth 2 (two) times daily with meals. [facility] diclofenac 75 mg EC tablet 04-04 00:00: 00 Yes [id number] 75mg Take 1 tablet by mouth 2 (two) times daily with meals. [facility]lofenac 75 mg EC tablet 04-04 00:00: 00 Yes [id number] 75mg Take 1 tablet by mouth 2 (two) times daily with meals. [facility] diclofenac 75 mg EC tablet 04-04 00:00: 00 Yes [id number] 75mg Take 1 tablet by mouth 2 (two) times daily with meals. [facility] diclofenac 75 mg EC tablet 04-04 00:00: 00 Yes [id number] 75mg Take 1 tablet by mouth 2 (two) times daily with meals. [facility] diclofenac 75 mg EC tablet 04-04 00:00: 00 Yes [id number] 75mg Take 1 tablet by mouth 2 (two) times daily with meals. [facility] diclofenac 75 mg EC tablet 04-04 00:00: 00 Yes [id number] 75mg Take 1 tablet by mouth 2 (two) times daily with meals. [facility] diclofenac 75 mg EC tablet 04-04 00:00: 00 Yes [id number] 75mg Take 1 tablet by mouth 2 (two) times daily with meals. [facility] diclofenac 75 mg EC tablet 04-04 00:00: 00 Yes [id number] 75mg Take 1 tablet by mouth 2 (two) times daily with meals. [facility] diclofenac 75 mg EC tablet 04-04 00:00: 00 Yes [id number] 75mg Take 1 tablet by mouth 2 (two) times daily with meals. [facility] diclofenac 75 mg EC tablet 04-04 00:00: 00 Yes [id number] 75mg Take 1 tablet by mouth 2 (two) times daily with meals. [facility] diclofenac 75 mg EC tablet 04-04 00:00: 00 Yes [id number] 75mg Take 1 tablet by mouth 2 (two) times daily with meals. [facility] diclofenac 75 mg EC tablet 04-04 00:00: 00 Yes [id number] 75mg Take 1 tablet by mouth 2 (two) times daily with meals. [facility] diclofenac 75 mg EC tablet 04-04 00:00: 00 Yes [id number] 75mg Take 1 tablet by mouth 2 (two) times daily with meals. [facility] diclofenac 75 mg EC tablet 04-04 00:00: 00 Yes [id number] 75mg Take 1 tablet by mouth 2 (two) times daily with meals. [facility] diclofenac 75 mg EC tablet 04-04 00:00: 00 Yes [id number] 75mg Take 1 tablet by mouth 2 (two) times daily with meals. [facility] diclofenac 75 mg EC tablet 04-04 00:00: 00 Yes [id number] 75mg Take 1 tablet by mouth 2 (two) times daily with meals. [facility] diclofenac 75 mg EC tablet 04-04 00:00: 00 Yes [id number] 75mg Take 1 tablet by mouth 2 (two) times daily with meals. [facility] diclofenac 75 mg EC tablet 04-04 00:00: 00 Yes [id number] 75mg Take 1 tablet by mouth 2 (two) times daily with meals. [facility] diclofenac 75 mg EC tablet 04-04 00:00: 00 Yes [id number] 75mg Take 1 tablet by mouth 2 (two) times daily with meals. [facility] diclofenac 75 mg EC tablet 04-04 00:00: 00 Yes [id number] 75mg Take 1 tablet by mouth 2 (two) times daily with meals. [facility] diclofenac 75 mg EC tablet 04-04 00:00: 00 Yes [id number] 75mg Take 1 tablet by mouth 2 (two) times daily with meals. [facility] diclofenac 75 mg EC tablet 04-04 00:00: 00 Yes [id number] 75mg Take 1 tablet by mouth 2 (two) times daily with meals. [facility] diclofenac 75 mg EC tablet 04-04 00:00: 00 Yes [id number] 75mg Take 1 tablet by mouth 2 (two) times daily with meals. [facility] diclofenac 75 mg EC tablet 04-04 00:00: 00 Yes [id number] 75mg Take 1 tablet by mouth 2 (two) times daily with meals. [facility] diclofenac 75 mg EC tablet 04-04 00:00: 00 Yes [id number] 75mg Take 1 tablet by mouth 2 (two) times daily with meals. [facility] diclofenac 75 mg EC tablet 04-04 00:00: 00 Yes [id number] 75mg Take 1 tablet by mouth 2 (two) times daily with meals. [facility] diclofenac 75 mg EC tablet 04-04 00:00: 00 Yes [id number] 75mg Take 1 tablet by mouth 2 (two) times daily with meals. [facility] diclofenac 75 mg EC tablet 04-04 00:00: 00 Yes [id number] 75mg Take 1 tablet by mouth 2 (two) times daily with meals. [facility] diclofenac 75 mg EC tablet 04-04 00:00: 00 Yes [id number] 75mg Take 1 tablet by mouth 2 (two) times daily with meals. [facility] diclofenac 75 mg EC tablet 04-04 00:00: 00 Yes [id number] 75mg Take 1 tablet by mouth 2 (two) times daily with meals. [facility] diclofenac 75 mg EC tablet 04-04 00:00: 00 Yes [id number] 75mg Take 1 tablet by mouth 2 (two) times daily with meals. [facility] diclofenac 75 mg EC tablet 04-04 00:00: 00 Yes [id number] 75mg Take 1 tablet by mouth 2 (two) times daily with meals. [facility] diclofenac 75 mg EC tablet 04-04 00:00: 00 Yes [id number] 75mg Take 1 tablet by mouth 2 (two) times daily with meals. [facility] diclofenac 75 mg EC tablet 04-04 00:00: 00 Yes [id number] 75mg Take 1 tablet by mouth 2 (two) times daily with meals. [facility] diclofenac 75 mg EC tablet 04-04 00:00: 00 Yes [id number] 75mg Take 1 tablet by mouth 2 (two) times daily with meals. [facility] diclofenac 75 mg EC tablet 04-04 00:00: 00 Yes [id number] 75mg Take 1 tablet by mouth 2 (two) times daily with meals. [facility] diclofenac 75 mg EC tablet 04-04 00:00: 00 Yes [id number] 75mg Take 1 tablet by mouth 2 (two) times daily with meals. [facility] 04-04 00:00: 00 Yes [id number] 75mg Take 1 tablet by mouth 2 (two) times daily with meals. [facility] EC tablet 04-04 00:00: 00 Yes [id number] 75mg Take 1 tablet by mouth 2 (two) times daily with meals. [facility] diclofenac 75 mg EC tablet 04-04 00:00: 00 Yes [id number] 75mg Take 1 tablet by mouth 2 (two) times daily with meals. [facility] diclofenac 75 mg EC tablet 04-04 00:00: 00 Yes [id number] 75mg Take 1 tablet by mouth 2 (two) times daily with meals. [facility] diclofenac 75 mg EC tablet 04-04 00:00: 00 Yes [id number] 75mg Take 1 tablet by mouth 2 (two) times daily with meals. [facility] diclofenac 75 mg EC tablet 04-04 00:00: 00 Yes [id number] 75mg Take 1 tablet by mouth 2 (two) times daily with meals. [facility] diclofenac 75 mg EC tablet 04-04 00:00: 00 Yes [id number] 75mg Take 1 tablet by mouth 2 (two) times daily with meals. [facility] diclofenac 75 mg EC tablet 04-04 00:00: 00 Yes [id number] 75mg Take 1 tablet by mouth 2 (two) times daily with meals. [facility] diclofenac 75 mg EC tablet 04-04 00:00: 00 Yes [id number] 75mg Take 1 tablet by mouth 2 (two) times daily with meals. [facility] diclofenac 75 mg EC tablet 04-04 00:00: 00 Yes [id number] 75mg Take 1 tablet by mouth 2 (two) times daily with meals. [facility] diclofenac 75 mg EC tablet 04-04 00:00: 00 Yes [id number] 75mg Take 1 tablet by mouth 2 (two) times daily with meals. [facility] diclofenac 75 mg EC tablet 04-04 00:00: 00 Yes [id number] 75mg Take 1 tablet by mouth 2 (two) times daily with meals. [facility] diclofenac 75 mg EC tablet 04-04 00:00: 00 Yes [id number] 75mg Take 1 tablet by mouth 2 (two) times daily with meals. [facility] diclofenac 75 mg EC tablet 04-04 00:00: 00 Yes [id number] 75mg Take 1 tablet by mouth 2 (two) times daily with meals. [facility] diclofenac 75 mg EC tablet 04-04 00:00: 00 Yes [id number] 75mg Take 1 tablet by mouth 2 (two) times daily with meals. [facility] diclofenac 75 mg EC tablet 04-04 00:00: 00 Yes [id number] 75mg Take 1 tablet by mouth 2 (two) times daily with meals. [facility] diclofenac 75 mg EC tablet 04-04 00:00: 00 Yes [id number] 75mg Take 1 tablet by mouth 2 (two) times daily with meals. [facility] diclofenac 75 mg EC tablet 04-04 00:00: 00 Yes [id number] 75mg Take 1 tablet by mouth 2 (two) times daily with meals. [facility] diclofenac 75 mg EC tablet 04-04 00:00: 00 Yes [id number] 75mg Take 1 tablet by mouth 2 (two) times daily with meals. [facility] diclofenac 75 mg EC tablet 04-04 00:00: 00 Yes [id number] 75mg Take 1 tablet by mouth 2 (two) times daily with meals. [facility] diclofenac 75 mg EC tablet 04-04 00:00: 00 Yes [id number] 75mg Take 1 tablet by mouth 2 (two) times daily with meals. [facility] diclofenac 75 mg EC tablet 04-04 00:00: 00 Yes [id number] 75mg Take 1 tablet by mouth 2 (two) times daily with meals. [facility] diclofenac 75 mg EC tablet 04-04 00:00: 00 Yes [id number] 75mg Take 1 tablet by mouth 2 (two) times daily with meals. [facility] diclofenac 75 mg EC tablet 04-04 00:00: 00 Yes [id number] 75mg Take 1 tablet by mouth 2 (two) times daily with meals. [facility] diclofenac 75 mg EC tablet 04-04 00:00: 00 Yes [id number] 75mg Take 1 tablet by mouth 2 (two) times daily with meals. [facility] diclofenac 75 mg EC tablet 04-04 00:00: 00 Yes [id number] 75mg Take 1 tablet by mouth 2 (two) times daily with meals. [facility] diclofenac 75 mg EC tablet 04-04 00:00: 00 Yes [id number] 75mg Take 1 tablet by mouth 2 (two) times daily with meals. [facility] diclofenac 75 mg EC tablet 04-04 00:00: 00 Yes [id number] 75mg Take 1 tablet by mouth 2 (two) times daily with meals. [facility] diclofenac 75 mg EC tablet 04-04 00:00: 00 Yes [id number] 75mg Take 1 tablet by mouth 2 (two) times daily with meals. [facility] diclofenac 75 mg EC tablet 04-04 00:00: 00 Yes [id number] 75mg Take 1 tablet by mouth 2 (two) times daily with meals. [facility] diclofenac 75 mg EC tablet 04-04 00:00: 00 Yes [id number] 75mg Take 1 tablet by mouth 2 (two) times daily with meals. [facility] diclofenac 75 mg EC tablet 04-04 00:00: 00 Yes [id number] 75mg Take 1 tablet by mouth 2 (two) times daily with meals. [facility] diclofenac 75 mg EC tablet 04-04 00:00: 00 Yes [id number] 75mg Take 1 tablet by mouth 2 (two) times daily with meals. [facility]lofenac 75 mg EC tablet 04-04 00:00: 00 Yes [id number] 75mg Take 1 tablet by mouth 2 (two) times daily with meals. [facility] diclofenac 75 mg EC tablet 04-04 00:00: 00 Yes [id number] 75mg Take 1 tablet by mouth 2 (two) times daily with meals. [facility]lofenac 75 mg EC tablet 04-04 00:00: 00 Yes [id number] 75mg Take 1 tablet by mouth 2 (two) times daily with meals. [facility] diclofenac 75 mg EC tablet 04-04 00:00: 00 Yes [id number] 75mg Take 1 tablet by mouth 2 (two) times daily with meals. [facility]lofenac 75 mg EC tablet 04-04 00:00: 00 Yes [id number] 75mg Take 1 tablet by mouth 2 (two) times daily with meals. [facility]lofenac 75 mg EC tablet 04-04 00:00: 00 Yes [id number] 75mg Take 1 tablet by mouth 2 (two) times daily with meals. [facility]lofenac 75 mg EC tablet 04-04 00:00: 00 Yes [id number] 75mg Take 1 tablet by mouth 2 (two) times daily with meals. [facility] diclofenac 75 mg EC tablet 04-04 00:00: 00 Yes [id number] 75mg Take 1 tablet by mouth 2 (two) times daily with meals. [facility] diclofenac 75 mg EC tablet 04-04 00:00: 00 Yes [id number] 75mg Take 1 tablet by mouth 2 (two) times daily with meals. [facility] diclofenac 75 mg EC tablet 04-04 00:00: 00 Yes [id number] 75mg Take 1 tablet by mouth 2 (two) times daily with meals. [facility] diclofenac 75 mg EC tablet 04-04 00:00: 00 Yes [id number] 75mg Take 1 tablet by mouth 2 (two) times daily with meals. [facility] diclofenac 75 mg EC tablet 04-04 00:00: 00 Yes [id number] 75mg Take 1 tablet by mouth 2 (two) times daily with meals. [facility] diclofenac 75 mg EC tablet 04-04 00:00: 00 Yes [id number] 75mg Take 1 tablet by mouth 2 (two) times daily with meals. [facility]lofenac 75 mg EC tablet 04-04 00:00: 00 Yes [id number] 75mg Take 1 tablet by mouth 2 (two) times daily with meals. [facility]lofenac 75 mg EC tablet 04-04 00:00: 00 Yes [id number] 75mg Take 1 tablet by mouth 2 (two) times daily with meals. [facility]lofenac 75 mg EC tablet 04-04 00:00: 00 Yes [id number] 75mg Take 1 tablet by mouth 2 (two) times daily with meals. [facility]lofenac 75 mg EC tablet 04-04 00:00: 00 Yes [id number] 75mg Take 1 tablet by mouth 2 (two) times daily with meals. [facility]lofenac 75 mg EC tablet 04-04 00:00: 00 Yes [id number] 75mg Take 1 tablet by mouth 2 (two) times daily with meals. [facility]lofenac 75 mg EC tablet 04-04 00:00: 00 Yes [id number] 75mg Take 1 tablet by mouth 2 (two) times daily with meals. [facility] diclofenac 75 mg EC tablet 04-04 00:00: 00 Yes [id number] 75mg Take 1 tablet by mouth 2 (two) times daily with meals. [facility] EC tablet 04-04 00:00: 00 Yes [id number] 75mg Take 1 tablet by mouth 2 (two) times daily with meals. [facility] mg EC tablet 04-04 00:00: 00 Yes [id number] 75mg Take 1 tablet by mouth 2 (two) times daily with meals. [facility] mg EC tablet 04-04 00:00: 00 Yes [id number] 75mg Take 1 tablet by mouth 2 (two) times daily with meals. [facility]lofenac 75 mg EC tablet 04-04 00:00: 00 Yes [id number] 75mg Take 1 tablet by mouth 2 (two) times daily with meals. [facility]lofenac 75 mg EC tablet 04-04 00:00: 00 Yes [id number] 75mg Take 1 tablet by mouth 2 (two) times daily with meals. [facility] diclofenac 75 mg EC tablet 04-04 00:00: 00 Yes [id number] 75mg Take 1 tablet by mouth 2 (two) times daily with meals. [facility] diclofenac 75 mg EC tablet 04-04 00:00: 00 Yes [id number] 75mg Take 1 tablet by mouth 2 (two) times daily with meals. [facility]lofenac 75 mg EC tablet 04-04 00:00: 00 Yes [id number] 75mg Take 1 tablet by mouth 2 (two) times daily with meals. [facility]lofenac 75 mg EC tablet 04-04 00:00: 00 Yes [id number] 75mg Take 1 tablet by mouth 2 (two) times daily with meals. [facility]lofenac 75 mg EC tablet 04-04 00:00: 00 Yes [id number] 75mg Take 1 tablet by mouth 2 (two) times daily with meals. [facility]lofenac 75 mg EC tablet 04-04 00:00: 00 Yes [id number] 75mg Take 1 tablet by mouth 2 (two) times daily with meals. [facility]lofenac 75 mg EC tablet 04-04 00:00: 00 Yes [id number] 75mg Take 1 tablet by mouth 2 (two) times daily with meals. [facility]lofenac 75 mg EC tablet 04-04 00:00: 00 Yes [id number] 75mg Take 1 tablet by mouth 2 (two) times daily with meals. [facility]lofenac 75 mg EC tablet 04-04 00:00: 00 Yes [id number] 75mg Take 1 tablet by mouth 2 (two) times daily with meals. [facility]lofenac 75 mg EC tablet 04-04 00:00: 00 Yes [id number] 75mg Take 1 tablet by mouth 2 (two) times daily with meals. [facility]lofenac 75 mg EC tablet 04-04 00:00: 00 Yes [id number] 75mg Take 1 tablet by mouth 2 (two) times daily with meals. [facility]lofenac 75 mg EC tablet 04-04 00:00: 00 Yes [id number] 75mg Take 1 tablet by mouth 2 (two) times daily with meals. [facility]lofenac 75 mg EC tablet 04-04 00:00: 00 Yes [id number] 75mg Take 1 tablet by mouth 2 (two) times daily with meals. [facility]lofen[facility] 75 mg EC tablet 04-04 00:00: 00 Yes [id number] 75mg Take 1 tablet by mouth 2 (two) times daily with meals. [facility]lofenac 75 mg EC tablet 04-04 00:00: 00 Yes [id number] 75mg Take 1 tablet by mouth 2 (two) times daily with meals. [facility]lofenac 75 mg EC tablet 04-04 00:00: 00 Yes [id number] 75mg Take 1 tablet by mouth 2 (two) times daily with meals. [facility]lofenac 75 mg EC tablet 04-04 00:00: 00 Yes [id number] 75mg Take 1 tablet by mouth 2 (two) times daily with meals. [facility]lofenac 75 mg EC tablet 04-04 00:00: 00 Yes [id number] 75mg Take 1 tablet by mouth 2 (two) times daily with meals. [facility]lofenac 75 mg EC tablet 04-04 00:00: 00 Yes [id number] 75mg Take 1 tablet by mouth 2 (two) times daily with meals. [facility]lofenac 75 mg EC tablet 04-04 00:00: 00 Yes [id number] 75mg Take 1 tablet by mouth 2 (two) times daily with meals. [facility]lofen[facility] 75 mg EC tablet 04-04 00:00: 00 Yes [id number] 75mg Take 1 tablet by mouth 2 (two) times daily with meals. [facility]lofen[facility] 75 mg EC tablet 04-04 00:00: 00 Yes [id number] 75mg Take 1 tablet by mouth 2 (two) times daily with meals. [facility]lofenac 75 mg EC tablet 04-04 00:00: 00 Yes [id number] 75mg Take 1 tablet by mouth 2 (two) times daily with meals. [facility]lofenac 75 mg EC tablet 04-04 00:00: 00 Yes [id number] 75mg Take 1 tablet by mouth 2 (two) times daily with meals. [facility]lofenac 75 mg EC tablet 04-04 00:00: 00 Yes [id number] 75mg Take 1 tablet by mouth 2 (two) times daily with meals. [facility]ofen[facility] 75 mg EC tablet 04-04 00:00: 00 Yes [id number] 75mg Take 1 tablet by mouth 2 (two) times daily with meals. [facility]ofen[facility] 75 mg EC tablet 04-04 00:00: 00 Yes [id number] 75mg Take 1 tablet by mouth 2 (two) times daily with meals. [facility]of[facility] 75 mg EC tablet 04-04 00:00: 00 Yes [id number] 75mg Take 1 tablet by mouth 2 (two) times daily with meals. [facility] diclofenac 75 mg EC tablet 04-04 00:00: 00 Yes [id number] 75mg Take 1 tablet by mouth 2 (two) times daily with meals. [facility] diclofenac 75 mg EC tablet 04-04 00:00: 00 Yes [id number] 75mg Take 1 tablet by mouth 2 (two) times daily with meals. [facility] diclofenac 75 mg EC tablet 04-04 00:00: 00 Yes [id number] 75mg Take 1 tablet by mouth 2 (two) times daily with meals. [facility] diclofenac 75 mg EC tablet 04-04 00:00: 00 Yes [id number] 75mg Take 1 tablet by mouth 2 (two) times daily with meals. [facility] diclofenac 75 mg EC tablet 04-04 00:00: 00 Yes [id number] 75mg Take 1 tablet by mouth 2 (two) times daily with meals. [facility] diclofenac 75 mg EC tablet 04-04 00:00: 00 Yes [id number] 75mg Take 1 tablet by mouth 2 (two) times daily with meals. [facility] diclofenac 75 mg EC tablet 04-04 00:00: 00 Yes [id number] 75mg Take 1 tablet by mouth 2 (two) times daily with meals. [facility] diclofenac 75 mg EC tablet 04-04 00:00: 00 Yes [id number] 75mg Take 1 tablet by mouth 2 (two) times daily with meals. [facility] diclofenac 75 mg EC tablet 04-04 00:00: 00 Yes [id number] 75mg Take 1 tablet by mouth 2 (two) times daily with meals. [facility] diclofenac 75 mg EC tablet 04-04 00:00: 00 Yes [id number] 75mg Take 1 tablet by mouth 2 (two) times daily with meals. [facility] diclofenac 75 mg EC tablet 04-04 00:00: 00 Yes [id number] 75mg Take 1 tablet by mouth 2 (two) times daily with meals. [facility] diclofenac 75 mg EC tablet 04-04 00:00: 00 Yes [id number] 75mg Take 1 tablet by mouth 2 (two) times daily with meals. [facility] diclofenac 75 mg EC tablet 04-04 00:00: 00 Yes [id number] 75mg Take 1 tablet by mouth 2 (two) times daily with meals. [facility] diclofenac 75 mg EC tablet 04-04 00:00: 00 Yes [id number] 75mg Take 1 tablet by mouth 2 (two) times daily with meals. [facility] diclofenac 75 mg EC tablet 04-04 00:00: 00 Yes [id number] 75mg Take 1 tablet by mouth 2 (two) times daily with meals. [facility] diclofenac 75 mg EC tablet 04-04 00:00: 00 Yes [id number] 75mg Take 1 tablet by mouth 2 (two) times daily with meals. [facility] diclofenac 75 mg EC tablet 04-04 00:00: 00 Yes [id number] 75mg Take 1 tablet by mouth 2 (two) times daily with meals. [facility] diclofenac 75 mg EC tablet 04-04 00:00: 00 Yes [id number] 75mg Take 1 tablet by mouth 2 (two) times daily with meals. [facility] diclofenac 75 mg EC tablet 04-04 00:00: 00 Yes [id number] 75mg Take 1 tablet by mouth 2 (two) times daily with meals. [facility] diclofenac 75 mg EC tablet 04-04 00:00: 00 Yes [id number] 75mg Take 1 tablet by mouth 2 (two) times daily with meals. [facility] diclofenac 75 mg EC tablet 04-04 00:00: 00 Yes [id number] 75mg Take 1 tablet by mouth 2 (two) times daily with meals. [facility] diclofenac 75 mg EC tablet 04-04 00:00: 00 Yes [id number] 75mg Take 1 tablet by mouth 2 (two) times daily with meals. [facility] diclofenac 75 mg EC tablet 04-04 00:00: 00 Yes [id number] 75mg Take 1 tablet by mouth 2 (two) times daily with meals. [facility] diclofenac 75 mg EC tablet 04-04 00:00: 00 Yes [id number] 75mg Take 1 tablet by mouth 2 (two) times daily with meals. [facility] diclofenac 75 mg EC tablet 04-04 00:00: 00 Yes [id number] 75mg Take 1 tablet by mouth 2 (two) times daily with meals. [facility] diclofenac 75 mg EC tablet 04-04 00:00: 00 Yes [id number] 75mg Take 1 tablet by mouth 2 (two) times daily with meals. [facility] diclofenac 75 mg EC tablet 04-04 00:00: 00 Yes [id number] 75mg Take 1 tablet by mouth 2 (two) times daily with meals. [facility] diclofenac 75 mg EC tablet 04-04 00:00: 00 Yes [id number] 75mg Take 1 tablet by mouth 2 (two) times daily with meals. [facility] diclofenac 75 mg EC tablet 04-04 00:00: 00 Yes [id number] 75mg Take 1 tablet by mouth 2 (two) times daily with meals. [facility] diclofenac 75 mg EC tablet 04-04 00:00: 00 Yes [id number] 75mg Take 1 tablet by mouth 2 (two) times daily with meals. [facility] diclofenac 75 mg EC tablet 04-04 00:00: 00 Yes [id number] 75mg Take 1 tablet by mouth 2 (two) times daily with meals. [facility] diclofenac 75 mg EC tablet 04-04 00:00: 00 Yes [id number] 75mg Take 1 tablet by mouth 2 (two) times daily with meals. [facility] diclofenac 75 mg EC tablet 04-04 00:00: 00 Yes [id number] 75mg Take 1 tablet by mouth 2 (two) times daily with meals. [facility] diclofenac 75 mg EC tablet 04-04 00:00: 00 Yes [id number] 75mg Take 1 tablet by mouth 2 (two) times daily with meals. [facility] diclofenac 75 mg EC tablet 04-04 00:00: 00 Yes [id number] 75mg Take 1 tablet by mouth 2 (two) times daily with meals. [facility] diclofenac 75 mg EC tablet 04-04 00:00: 00 Yes [id number] 75mg Take 1 tablet by mouth 2 (two) times daily with meals. [facility] diclofenac 75 mg EC tablet 04-04 00:00: 00 Yes [id number] 75mg Take 1 tablet by mouth 2 (two) times daily with meals. [facility] diclofenac 75 mg EC tablet 04-04 00:00: 00 Yes [id number] 75mg Take 1 tablet by mouth 2 (two) times daily with meals. [facility] diclofenac 75 mg EC tablet 04-04 00:00: 00 Yes [id number] 75mg Take 1 tablet by mouth 2 (two) times daily with meals. [facility] diclofenac 75 mg EC tablet 04-04 00:00: 00 Yes [id number] 75mg Take 1 tablet by mouth 2 (two) times daily with meals. [facility] diclofenac 75 mg EC tablet 04-04 00:00: 00 Yes [id number] 75mg Take 1 tablet by mouth 2 (two) times daily with meals. [facility] diclofenac 75 mg EC tablet 04-04 00:00: 00 Yes [id number] 75mg Take 1 tablet by mouth 2 (two) times daily with meals. [facility] diclofenac 75 mg EC tablet 04-04 00:00: 00 Yes [id number] 75mg Take 1 tablet by mouth 2 (two) times daily with meals. [facility] diclofenac 75 mg EC tablet 04-04 00:00: 00 Yes [id number] 75mg Take 1 tablet by mouth 2 (two) times daily with meals. [facility] diclofenac 75 mg EC tablet 04-04 00:00: 00 Yes [id number] 75mg Take 1 tablet by mouth 2 (two) times daily with meals. [facility] diclofenac 75 mg EC tablet 04-04 00:00: 00 Yes [id number] 75mg Take 1 tablet by mouth 2 (two) times daily with meals. [facility] diclofenac 75 mg EC tablet 04-04 00:00: 00 Yes [id number] 75mg Take 1 tablet by mouth 2 (two) times daily with meals. [facility] diclofenac 75 mg EC tablet 04-04 00:00: 00 Yes [id number] 75mg Take 1 tablet by mouth 2 (two) times daily with meals. [facility] diclofenac 75 mg EC tablet 04-04 00:00: 00 Yes [id number] 75mg Take 1 tablet by mouth 2 (two) times daily with meals. [facility] diclofenac 75 mg EC tablet 04-04 00:00: 00 Yes [id number] 75mg Take 1 tablet by mouth 2 (two) times daily with meals. [facility] diclofenac 75 mg EC tablet 04-04 00:00: 00 Yes [id number] 75mg Take 1 tablet by mouth 2 (two) times daily with meals. [facility] diclofenac 75 mg EC tablet 04-04 00:00: 00 Yes [id number] 75mg Take 1 tablet by mouth 2 (two) times daily with meals. [facility] diclofenac 75 mg EC tablet 04-04 00:00: 00 Yes [id number] 75mg Take 1 tablet by mouth 2 (two) times daily with meals. [facility] diclofenac 75 mg EC tablet 04-04 00:00: 00 Yes [id number] 75mg Take 1 tablet by mouth 2 (two) times daily with meals. [facility] Supply Kit 11-22 00:00: 00 Yes [id number] J40: Brochitis - Dispense # 1 Jose Respironic s (okay for alternativ e brand) for nebulizer treatment [facility] Kit 11-22 00:00: 00 Yes [id number] J40: Brochitis - Dispense # 1 Jose Respironic s (okay for alternativ e brand) for nebulizer treatment [facility] Supply Kit 11-22 00:00: 00 Yes [id number] J40: Brochitis - Dispense # 1 Jose Respironic s (okay for alternativ e brand) for nebulizer treatment [facility] Kit 11-22 00:00: 00 Yes [id number] J40: Brochitis - Dispense # 1 Jose Respironic s (okay for alternativ e brand) for nebulizer treatment [facility] Supply Kit 11-22 00:00: 00 Yes [id number] J40: Brochitis - Dispense # 1 Jose Respironic s (okay for alternativ e brand) for nebulizer treatment [facility] Kit 11-22 00:00: 00 Yes [id number] J40: Brochitis - Dispense # 1 Jose Respironic s (okay for alternativ e brand) for nebulizer treatment [facility] Kit 11-22 00:00: 00 Yes [id number] J40: Brochitis - Dispense # 1 Jose Respironic s (okay for alternativ e brand) for nebulizer treatment [facility] Supply Kit 11-22 00:00: 00 Yes [id number] J40: Brochitis - Dispense # 1 Jose Respironic s (okay for alternativ e brand) for nebulizer treatment [facility] Kit 11-22 00:00: 00 Yes [id number] J40: Brochitis - Dispense # 1 Jose Respironic s (okay for alternativ e brand) for nebulizer treatment [facility] Kit 11-22 00:00: 00 Yes [id number] J40: Brochitis - Dispense # 1 Jose Respironic s (okay for alternativ e brand) for nebulizer treatment [facility] Kit 11-22 00:00: 00 Yes [id number] J40: Brochitis - Dispense # 1 Jose Respironic s (okay for alternativ e brand) for nebulizer treatment [facility] 11-22 00:00: 00 Yes [id number] J40: Brochitis - Dispense # 1 Jose Respironic s (okay for alternativ e brand) for nebulizer treatment [facility] Kit 11-22 00:00: 00 Yes [id number] J40: Brochitis - Dispense # 1 Jose Respironic s (okay for alternativ e brand) for nebulizer treatment [facility] Kit 11-22 00:00: 00 Yes [id number] J40: Brochitis - Dispense # 1 Jose Respironic s (okay for alternativ e brand) for nebulizer treatment [facility] Kit 11-22 00:00: 00 Yes [id number] J40: Brochitis - Dispense # 1 Jose Respironic s (okay for alternativ e brand) for nebulizer treatment [facility] Kit 11-22 00:00: 00 Yes [id number] J40: Brochitis - Dispense # 1 Jose Respironic s (okay for alternativ e brand) for nebulizer treatment [facility] Kit 11-22 00:00: 00 Yes [id number] J40: Brochitis - Dispense # 1 Jose Respironic s (okay for alternativ e brand) for nebulizer treatment [facility] Supply Kit 11-22 00:00: 00 Yes [id number] J40: Brochitis - Dispense # 1 Jose Respironic s (okay for alternativ e brand) for nebulizer treatment [facility] Supply Kit 11-22 00:00: 00 Yes [id number] J40: Brochitis - Dispense # 1 Jose Respironic s (okay for alternativ e brand) for nebulizer treatment [facility] Kit 11-22 00:00: 00 Yes [id number] J40: Brochitis - Dispense # 1 Jose Respironic s (okay for alternativ e brand) for nebulizer treatment [facility] Supply Kit 11-22 00:00: 00 Yes [id number] J40: Brochitis - Dispense # 1 Jose Respironic s (okay for alternativ e brand) for nebulizer treatment [facility] Kit 11-22 00:00: 00 Yes [id number] J40: Brochitis - Dispense # 1 Jose Respironic s (okay for alternativ e brand) for nebulizer treatment [facility] Kit 11-22 00:00: 00 Yes [id number] J40: Brochitis - Dispense # 1 Jose Respironic s (okay for alternativ e brand) for nebulizer treatment [facility] Kit 11-22 00:00: 00 Yes [id number] J40: Brochitis - Dispense # 1 Jose Respironic s (okay for alternativ e brand) for nebulizer treatment [facility] Kit 11-22 00:00: 00 Yes [id number] J40: Brochitis - Dispense # 1 Jose Respironic s (okay for alternativ e brand) for nebulizer treatment [facility] Kit 11-22 00:00: 00 Yes [id number] J40: Brochitis - Dispense # 1 Jose Respironic s (okay for alternativ e brand) for nebulizer treatment [facility] Kit 11-22 00:00: 00 Yes [id number] J40: Brochitis - Dispense # 1 Jose Respironic s (okay for alternativ e brand) for nebulizer treatment [facility] Kit 11-22 00:00: 00 Yes [id number] J40: Brochitis - Dispense # 1 Jose Respironic s (okay for alternativ e brand) for nebulizer treatment [facility] 11-22 00:00: 00 Yes [id number] J40: Brochitis - Dispense # 1 Jose Respironic s (okay for alternativ e brand) for nebulizer treatment [facility] 11-22 00:00: 00 Yes [id number] J40: Brochitis - Dispense # 1 Jose Respironic s (okay for alternativ e brand) for nebulizer treatment [facility] Kit 11-22 00:00: 00 Yes [id number] J40: Brochitis - Dispense # 1 Jose Respironic s (okay for alternativ e brand) for nebulizer treatment [facility] Kit 11-22 00:00: 00 Yes [id number] J40: Brochitis - Dispense # 1 Jose Respironic s (okay for alternativ e brand) for nebulizer treatment [facility] Kit 11-22 00:00: 00 Yes [id number] J40: Brochitis - Dispense # 1 Jose Respironic s (okay for alternativ e brand) for nebulizer treatment [facility] Kit 11-22 00:00: 00 Yes [id number] J40: Brochitis - Dispense # 1 Jose Respironic s (okay for alternativ e brand) for nebulizer treatment [facility] Supply Kit 11-22 00:00: 00 Yes [id number] J40: Brochitis - Dispense # 1 Jose Respironic s (okay for alternativ e brand) for nebulizer treatment [facility] Kit 11-22 00:00: 00 Yes [id number] J40: Brochitis - Dispense # 1 Jose Respironic s (okay for alternativ e brand) for nebulizer treatment [facility] Kit 11-22 00:00: 00 Yes [id number] J40: Brochitis - Dispense # 1 Jose Respironic s (okay for alternativ e brand) for nebulizer treatment [facility] Kit 11-22 00:00: 00 Yes [id number] J40: Brochitis - Dispense # 1 Jose Respironic s (okay for alternativ e brand) for nebulizer treatment [facility] Kit 11-22 00:00: 00 Yes [id number] J40: Brochitis - Dispense # 1 Jose Respironic s (okay for alternativ e brand) for nebulizer treatment [facility] Kit 11-22 00:00: 00 Yes [id number] J40: Brochitis - Dispense # 1 Jose Respironic s (okay for alternativ e brand) for nebulizer treatment [facility] Kit 11-22 00:00: 00 Yes [id number] J40: Brochitis - Dispense # 1 Jose Respironic s (okay for alternativ e brand) for nebulizer treatment [facility] Kit 11-22 00:00: 00 Yes [id number] J40: Brochitis - Dispense # 1 Jose Respironic s (okay for alternativ e brand) for nebulizer treatment [facility] Kit 11-22 00:00: 00 Yes [id number] J40: Brochitis - Dispense # 1 Jose Respironic s (okay for alternativ e brand) for nebulizer treatment [facility] Kit 11-22 00:00: 00 Yes [id number] J40: Brochitis - Dispense # 1 Jose Respironic s (okay for alternativ e brand) for nebulizer treatment [facility] 11-22 00:00: 00 Yes [id number] J40: Brochitis - Dispense # 1 Jose Respironic s (okay for alternativ e brand) for nebulizer treatment [facility] 11-22 00:00: 00 Yes [id number] J40: Brochitis - Dispense # 1 Jose Respironic s (okay for alternativ e brand) for nebulizer treatment [facility] 11-22 00:00: 00 Yes [id number] J40: Brochitis - Dispense # 1 Jose Respironic s (okay for alternativ e brand) for nebulizer treatment [facility] 11-22 00:00: 00 Yes [id number] J40: Brochitis - Dispense # 1 Jose Respironic s (okay for alternativ e brand) for nebulizer treatment [facility] Kit 11-22 00:00: 00 Yes [id number] J40: Brochitis - Dispense # 1 Jose Respironic s (okay for alternativ e brand) for nebulizer treatment [facility] Kit 11-22 00:00: 00 Yes [id number] J40: Brochitis - Dispense # 1 Jose Respironic s (okay for alternativ e brand) for nebulizer treatment [facility] Kit 11-22 00:00: 00 Yes [id number] J40: Brochitis - Dispense # 1 Jose Respironic s (okay for alternativ e brand) for nebulizer treatment [facility] Supply Kit 11-22 00:00: 00 Yes [id number] J40: Brochitis - Dispense # 1 Jose Respironic s (okay for alternativ e brand) for nebulizer treatment [facility] Kit 11-22 00:00: 00 Yes [id number] J40: Brochitis - Dispense # 1 Jose Respironic s (okay for alternativ e brand) for nebulizer treatment [facility] Kit 11-22 00:00: 00 Yes [id number] J40: Brochitis - Dispense # 1 Jose Respironic s (okay for alternativ e brand) for nebulizer treatment [facility] Kit 11-22 00:00: 00 Yes [id number] J40: Brochitis - Dispense # 1 Jose Respironic s (okay for alternativ e brand) for nebulizer treatment [facility] Kit 11-22 00:00: 00 Yes [id number] J40: Brochitis - Dispense # 1 Jose Respironic s (okay for alternativ e brand) for nebulizer treatment [facility] Kit 11-22 00:00: 00 Yes [id number] J40: Brochitis - Dispense # 1 Jose Respironic s (okay for alternativ e brand) for nebulizer treatment [facility] Kit 11-22 00:00: 00 Yes [id number] J40: Brochitis - Dispense # 1 Jose Respironic s (okay for alternativ e brand) for nebulizer treatment [facility] Kit 11-22 00:00: 00 Yes [id number] J40: Brochitis - Dispense # 1 Jose Respironic s (okay for alternativ e brand) [facility]bulizer [facility]: 00 Yes [id number] J40: Brochitis - Dispense # 1 Jose Respironic s (okay for alternativ e brand) for nebulizer treatment [facility] 11-22 00:00: 00 Yes [id number] J40: Brochitis - Dispense # 1 Jose Respironic s (okay for alternativ e brand) for nebulizer treatment [facility] 11-22 00:00: 00 Yes [id number] J40: Brochitis - Dispense # 1 Jose Respironic s (okay for alternativ e brand) for nebulizer treatment [facility] 11-22 00:00: 00 Yes [id number] J40: Brochitis - Dispense # 1 Jose Respironic s (okay for alternativ e brand) for nebulizer treatment [facility] 11-22 00:00: 00 Yes [id number] J40: Brochitis - Dispense # 1 Jose Respironic s (okay for alternativ e brand) for nebulizer treatment [facility] 11-22 00:00: 00 Yes [id number] J40: Brochitis - Dispense # 1 Jose Respironic s (okay for alternativ e brand) for nebulizer treatment [facility] 11-22 00:00: 00 Yes [id number] J40: Brochitis - Dispense # 1 Jose Respironic s (okay for alternativ e brand) for nebulizer treatment [facility] Kit 11-22 00:00: 00 Yes [id number] J40: Brochitis - Dispense # 1 Jose Respironic s (okay for alternativ e brand) for nebulizer treatment [facility] Kit 11-22 00:00: 00 Yes [id number] J40: Brochitis - Dispense # 1 Jose Respironic s (okay for alternativ e brand) for nebulizer treatment [facility] Supply Kit 11-22 00:00: 00 Yes [id number] J40: Brochitis - Dispense # 1 Jose Respironic s (okay for alternativ e brand) for nebulizer treatment [facility] Supply Kit 11-22 00:00: 00 Yes [id number] J40: Brochitis - Dispense # 1 Jose Respironic s (okay for alternativ e brand) for nebulizer treatment [facility] Kit 11-22 00:00: 00 Yes [id number] J40: Brochitis - Dispense # 1 Jose Respironic s (okay for alternativ e brand) for nebulizer treatment [facility] Kit 11-22 00:00: 00 Yes [id number] J40: Brochitis - Dispense # 1 Jose Respironic s (okay for alternativ e brand) for nebulizer treatment [facility] Kit 11-22 00:00: 00 Yes [id number] J40: Brochitis - Dispense # 1 Jose Respironic s (okay for alternativ e brand) for nebulizer treatment [facility] Kit 11-22 00:00: 00 Yes [id number] J40: Brochitis - Dispense # 1 Jose Respironic s (okay for alternativ e brand) for nebulizer treatment [facility] Kit 11-22 00:00: 00 Yes [id number] J40: Brochitis - Dispense # 1 Jose Respironic s (okay for alternativ e brand) for nebulizer treatment [facility] Kit 11-22 00:00: 00 Yes [id number] J40: Brochitis - Dispense # 1 Jose Respironic s (okay for alternativ e brand) for nebulizer treatment [facility] 11-22 00:00: 00 Yes [id number] J40: Brochitis - Dispense # 1 Jose Respironic s (okay for alternativ e brand) for nebulizer treatment [facility] 11-22 00:00: 00 Yes [id number] J40: Brochitis - Dispense # 1 Jose Respironic s (okay for alternativ e brand) for nebulizer treatment [facility] 11-22 00:00: 00 Yes [id number] J40: Brochitis - Dispense # 1 Jose Respironic s (okay for alternativ e brand) for nebulizer treatment [facility] 11-22 00:00: 00 Yes [id number] J40: Brochitis - Dispense # 1 Jose Respironic s (okay for alternativ e brand) for nebulizer treatment [facility] 11-22 00:00: 00 Yes [id number] J40: Brochitis - Dispense # 1 Jose Respironic s (okay for alternativ e brand) for nebulizer treatment [facility] 11-22 00:00: 00 Yes [id number] J40: Brochitis - Dispense # 1 Jose Respironic s (okay for alternativ e brand) for nebulizer treatment [facility] 11-22 00:00: 00 Yes [id number] J40: Brochitis - Dispense # 1 Jose Respironic s (okay for alternativ e brand) for nebulizer treatment [facility] 11-22 00:00: 00 Yes [id number] J40: Brochitis - Dispense # 1 Jose Respironic s (okay for alternativ e brand) for nebulizer treatment [facility] Kit 11-22 00:00: 00 Yes [id number] J40: Brochitis - Dispense # 1 Jose Respironic s (okay for alternativ e brand) for nebulizer treatment [facility] Kit 11-22 00:00: 00 Yes [id number] J40: Brochitis - Dispense # 1 Jose Respironic s (okay for alternativ e brand) for nebulizer treatment [facility] Kit 11-22 00:00: 00 Yes [id number] J40: Brochitis - Dispense # 1 Jose Respironic s (okay for alternativ e brand) for nebulizer treatment [facility] Kit 11-22 00:00: 00 Yes [id number] J40: Brochitis - Dispense # 1 Jose Respiron[facility] s (okay for alternativ e brand) for nebulizer treatment [facility] Kit 11-22 00:00: 00 Yes [id number] J40: Brochitis - Dispense # 1 Jose Respironic s (okay for alternativ e brand) for nebulizer treatment [facility] Kit 11-22 00:00: 00 Yes [id number] J40: Brochitis - Dispense # 1 Jose Respironic s (okay for alternativ e brand) for nebulizer treatment [facility] Kit 11-22 00:00: 00 Yes [id number] J40: Brochitis - Dispense # 1 Jose Respironic s (okay for alternativ e brand) for nebulizer treatment [facility] Kit 11-22 00:00: 00 Yes [id number] J40: Brochitis - Dispense # 1 Jose Respironic s (okay for alternativ e brand) for nebulizer treatment [facility] Kit 11-22 00:00: 00 Yes [id number] J40: Brochitis - Dispense # 1 Jose Respironic s (okay for alternativ e brand) for nebulizer treatment [facility] Kit 11-22 00:00: 00 Yes [id number] J40: Brochitis - Dispense # 1 Jose Respironic s (okay for alternativ e brand) for nebulizer treatment [facility] 11-22 00:00: 00 Yes [id number] J40: Brochitis - Dispense # 1 Jose Respironic s (okay for alternativ e brand) for nebulizer treatment [facility] 11-22 00:00: 00 Yes [id number] J40: Brochitis - Dispense # 1 Jose Respironic s (okay for alternativ e brand) for nebulizer treatment [facility] 11-22 00:00: 00 Yes [id number] J40: Brochitis - Dispense # 1 Jose Respironic s (okay for alternativ e brand) for nebulizer treatment [facility] 11-22 00:00: 00 Yes [id number] J40: Brochitis - Dispense # 1 Jose Respironic s (okay for alternativ e brand) for nebulizer treatment [facility] 11-22 00:00: 00 Yes [id number] J40: Brochitis - Dispense # 1 Jose Respironic s (okay for alternativ e brand) for nebulizer treatment [facility] Kit 11-22 00:00: 00 Yes [id number] J40: Brochitis - Dispense # 1 Jose Respironic s (okay for alternativ e brand) for nebulizer treatment [facility] Kit 11-22 00:00: 00 Yes [id number] J40: Brochitis - Dispense # 1 Jose Respironic s (okay for alternativ e brand) for nebulizer treatment [facility] Kit 11-22 00:00: 00 Yes [id number] J40: Brochitis - Dispense # 1 Jose Respironic s (okay for alternativ e brand) for nebulizer treatment [facility] Kit 11-22 00:00: 00 Yes [id number] J40: Brochitis - Dispense # 1 Jose Respironic s (okay for alternativ e brand) for nebulizer treatment [facility] Kit 11-22 00:00: 00 Yes [id number] J40: Brochitis - Dispense # 1 Jose Respironic s (okay for alternativ e brand) for nebulizer treatment [facility] Kit 11-22 00:00: 00 Yes [id number] J40: Brochitis - Dispense # 1 Jose Respironic s (okay for alternativ e brand) for nebulizer treatment [facility] Kit 11-22 00:00: 00 Yes [id number] J40: Brochitis - Dispense # 1 Jose Respironic s (okay for alternativ e brand) for nebulizer treatment [facility] Kit 11-22 00:00: 00 Yes [id number] J40: Brochitis - Dispense # 1 Jose Respironic s (okay for alternativ e brand) for nebulizer treatment [facility] Kit 11-22 00:00: 00 Yes [id number] J40: Brochitis - Dispense # 1 Jose Respironic s (okay for alternativ e brand) for nebulizer treatment [facility] Kit 11-22 00:00: 00 Yes [id number] J40: Brochitis - Dispense # 1 Jose Respironic s (okay for alternativ e brand) for nebulizer treatment [facility] Kit 11-22 00:00: 00 Yes [id number] J40: Brochitis - Dispense # 1 Jose Respironic s (okay for alternativ e brand) for nebulizer treatment [facility] Kit 11-22 00:00: 00 Yes [id number] J40: Brochitis - Dispense # 1 Jose Respironic s (okay for alternativ e brand) for nebulizer treatment [facility] Kit 11-22 00:00: 00 Yes [id number] J40: Brochitis - Dispense # 1 Jose Respironic s (okay for alternativ e brand) for nebulizer treatment [facility] 11-22 00:00: 00 Yes [id number] J40: Brochitis - Dispense # 1 Jose Respironic s (okay for alternativ e brand) for nebulizer treatment [facility] 11-22 00:00: 00 Yes [id number] J40: Brochitis - Dispense # 1 Jose Respironic s (okay for alternativ e brand) for nebulizer treatment [facility] 11-22 00:00: 00 Yes [id number] J40: Brochitis - Dispense # 1 Jose Respironic s (okay for alternativ e brand) for nebulizer treatment [facility] Kit 11-22 00:00: 00 Yes [id number] J40: Brochitis - Dispense # 1 Jose Respironic s (okay for alternativ e brand) for nebulizer treatment [facility] Kit 11-22 00:00: 00 Yes [id number] J40: Brochitis - Dispense # 1 Jose Respironic s (okay for alternativ e brand) for nebulizer treatment [facility] Kit 11-22 00:00: 00 Yes [id number] J40: Brochitis - Dispense # 1 Jose Respironic s (okay for alternativ e brand) for nebulizer treatment [facility] Kit 11-22 00:00: 00 Yes [id number] J40: Brochitis - Dispense # 1 Jose Respironic s (okay for alternativ e brand) for nebulizer treatment [facility] Kit 11-22 00:00: 00 Yes [id number] J40: Brochitis - Dispense # 1 Jose Respironic s (okay for alternativ e brand) for nebulizer treatment [facility] Kit 11-22 00:00: 00 Yes [id number] J40: Brochitis - Dispense # 1 Jose Respironic s (okay for alternativ e brand) for nebulizer treatment [facility] Kit 11-22 00:00: 00 Yes [id number] J40: Brochitis - Dispense # 1 Jose Respironic s (okay for alternativ e brand) for nebulizer treatment [facility] 11-22 00:00: 00 Yes [id number] J40: Brochitis - Dispense # 1 Jose Respironic s (okay for alternativ e brand) for nebulizer treatment [facility] Kit 11-22 00:00: 00 Yes [id number] J40: Brochitis - Dispense # 1 Jose Respironic s (okay for alternativ e brand) for nebulizer treatment [facility] Kit 11-22 00:00: 00 Yes [id number] J40: Brochitis - Dispense # 1 Jose Respironic s (okay for alternativ e brand) for nebulizer treatment [facility] Kit 11-22 00:00: 00 Yes [id number] J40: Brochitis - Dispense # 1 Jose Respironic s (okay for alternativ e brand) for nebulizer treatment [facility] Kit 11-22 00:00: 00 Yes [id number] J40: Brochitis - Dispense # 1 Jose Respironic s (okay for alternativ e brand) for nebulizer treatment [facility] Kit 11-22 00:00: 00 Yes [id number] J40: Brochitis - Dispense # 1 Jose Respironic s (okay for alternativ e brand) for nebulizer treatment [facility] Kit 11-22 00:00: 00 Yes [id number] J40: Brochitis - Dispense # 1 Jose Respironic s (okay for alternativ e brand) for nebulizer treatment [facility] Kit 11-22 00:00: 00 Yes [id number] J40: Brochitis - Dispense # 1 Jose Respironic s (okay for alternativ e brand) for nebulizer treatment [facility] Kit 11-22 00:00: 00 Yes [id number] J40: Brochitis - Dispense # 1 Jose Respironic s (okay for alternativ e brand) for nebulizer treatment [facility] Kit 11-22 00:00: 00 Yes [id number] J40: Brochitis - Dispense # 1 Jose Respironic s (okay for alternativ e brand) for nebulizer treatment [facility] Kit 11-22 00:00: 00 Yes [id number] J40: Brochitis - Dispense # 1 Jose Respironic s (okay for alternativ e brand) for nebulizer treatment [facility] Kit 11-22 00:00: 00 Yes [id number] J40: Brochitis - Dispense # 1 Jose Respironic s (okay for alternativ e brand) for nebulizer treatment [facility] Kit 11-22 00:00: 00 Yes [id number] J40: Brochitis - Dispense # 1 Jose Respironic s (okay for alternativ e brand) for nebulizer treatment [facility] Kit 11-22 00:00: 00 Yes [id number] J40: Brochitis - Dispense # 1 Jose Respironic s (okay for alternativ e brand) for nebulizer treatment [facility] Kit 11-22 00:00: 00 Yes [id number] J40: Brochitis - Dispense # 1 Jose Respironic s (okay for alternativ e brand) for nebulizer treatment [facility] Kit 11-22 00:00: 00 Yes [id number] J40: Brochitis - Dispense # 1 Jose Respironic s (okay for alternativ e brand) for nebulizer treatment [facility] Kit 11-22 00:00: 00 Yes [id number] J40: Brochitis - Dispense # 1 Jose Respironic s (okay for alternativ e brand) for nebulizer treatment [facility] 11-22 00:00: 00 Yes [id number] J40: Brochitis - Dispense # 1 Jose Respironic s (okay for alternativ e brand) for nebulizer treatment [facility] Kit 11-22 00:00: 00 Yes [id number] J40: Brochitis - Dispense # 1 Jose Respironic s (okay for alternativ e brand) for nebulizer treatment [facility] Kit 11-22 00:00: 00 Yes [id number] J40: Brochitis - Dispense # 1 Jose Respironic s (okay for alternativ e brand) for nebulizer treatment [facility] Kit 11-22 00:00: 00 Yes [id number] J40: Brochitis - Dispense # 1 Jose Respironic s (okay for alternativ e brand) for nebulizer treatment [facility] Kit 11-22 00:00: 00 Yes [id number] J40: Brochitis - Dispense # 1 Jose Respironic s (okay for alternativ e brand) for nebulizer treatment [facility] Kit 11-22 00:00: 00 Yes [id number] J40: Brochitis - Dispense # 1 Jose Respironic s (okay for alternativ e brand) for nebulizer treatment [facility] Kit 11-22 00:00: 00 Yes [id number] J40: Brochitis - Dispense # 1 Jose Respironic s (okay for alternativ e brand) for nebulizer treatment [facility] Kit 11-22 00:00: 00 Yes [id number] J40: Brochitis - Dispense # 1 Jose Respironic s (okay for alternativ e brand) for nebulizer treatment [facility] Kit 11-22 00:00: 00 Yes [id number] J40: Brochitis - Dispense # 1 Jose Respironic s (okay for alternativ e brand) for nebulizer treatment [facility] Kit 11-22 00:00: 00 Yes [id number] J40: Brochitis - Dispense # 1 Jose Respironic s (okay for alternativ e brand) for nebulizer treatment [facility] Kit 11-22 00:00: 00 Yes [id number] J40: Brochitis - Dispense # 1 Jose Respironic s (okay for alternativ e brand) for nebulizer treatment [facility] Kit 11-22 00:00: 00 Yes [id number] J40: Brochitis - Dispense # 1 Jose Respironic s (okay for alternativ e brand) for nebulizer treatment [facility] Kit 11-22 00:00: 00 Yes [id number] J40: Brochitis - Dispense # 1 Jose Respironic s (okay for alternativ e brand) for nebulizer treatment [facility] Kit 11-22 00:00: 00 Yes [id number] J40: Brochitis - Dispense # 1 Jose Respironic s (okay for alternativ e brand) for nebulizer treatment [facility] Kit 11-22 00:00: 00 Yes [id number] J40: Brochitis - Dispense # 1 Jose Respironic s (okay for alternativ e brand) for nebulizer treatment [facility] Kit 11-22 00:00: 00 Yes [id number] J40: Brochitis - Dispense # 1 Jose Respironic s (okay for alternativ e brand) for nebulizer treatment [facility] 11-22 00:00: 00 Yes [id number] J40: Brochitis - Dispense # 1 Jose Respironic s (okay for alternativ e brand) for nebulizer treatment [facility] 11-22 00:00: 00 Yes [id number] J40: Brochitis - Dispense # 1 Jose Respironic s (okay for alternativ e brand) for nebulizer treatment [facility] Kit 11-22 00:00: 00 Yes [id number] J40: Brochitis - Dispense # 1 Jose Respironic s (okay for alternativ e brand) for nebulizer treatment [facility] Kit 11-22 00:00: 00 Yes [id number] J40: Brochitis - Dispense # 1 Jose Respironic s (okay for alternativ e brand) for nebulizer treatment [facility] Kit 11-22 00:00: 00 Yes [id number] J40: Brochitis - Dispense # 1 Jose Respironic s (okay for alternativ e brand) for nebulizer treatment [facility] Kit 11-22 00:00: 00 Yes [id number] J40: Brochitis - Dispense # 1 Jose Respironic s (okay for alternativ e brand) for nebulizer treatment [facility] Kit 11-22 00:00: 00 Yes [id number] J40: Brochitis - Dispense # 1 Jose Respironic s (okay for alternativ e brand) for nebulizer treatment [facility] Kit 11-22 00:00: 00 Yes [id number] J40: Brochitis - Dispense # 1 Jose Respironic s (okay for alternativ e brand) for nebulizer treatment [facility] Kit 11-22 00:00: 00 Yes [id number] J40: Brochitis - Dispense # 1 Jose Respironic s (okay for alternativ e brand) for nebulizer treatment [facility] Kit 11-22 00:00: 00 Yes [id number] J40: Brochitis - Dispense # 1 Jose Respironic s (okay for alternativ e brand) for nebulizer treatment [facility] Kit 11-22 00:00: 00 Yes [id number] J40: Brochitis - Dispense # 1 Jose Respironic s (okay for alternativ e brand) for nebulizer treatment [facility] Kit 11-22 00:00: 00 Yes [id number] J40: Brochitis - Dispense # 1 Jose Respironic s (okay for alternativ e brand) for nebulizer treatment [facility] Kit 11-22 00:00: 00 Yes [id number] J40: Brochitis - Dispense # 1 Jose Respironic s (okay for alternativ e brand) for nebulizer treatment [facility] Kit 11-22 00:00: 00 Yes [id number] J40: Brochitis - Dispense # 1 Jose Respironic s (okay for alternativ e brand) for nebulizer treatment [facility] Kit 11-22 00:00: 00 Yes [id number] J40: Brochitis - Dispense # 1 Jose Respironic s (okay for alternativ e brand) for nebulizer treatment [facility] Kit 11-22 00:00: 00 Yes [id number] J40: Brochitis - Dispense # 1 Jose Respironic s (okay for alternativ e brand) for nebulizer treatment [facility] Kit 11-22 00:00: 00 Yes [id number] J40: Brochitis - Dispense # 1 Jose Respironic s (okay for alternativ e brand) for nebulizer treatment [facility] 11-22 00:00: 00 Yes [id number] J40: Brochitis - Dispense # 1 Jose Respironic s (okay for alternativ e brand) for nebulizer treatment [facility] Kit 11-22 00:00: 00 Yes [id number] J40: Brochitis - Dispense # 1 Jose Respironic s (okay for alternativ e brand) for nebulizer treatment [facility] Kit 11-22 00:00: 00 Yes [id number] J40: Brochitis - Dispense # 1 Jose Respironic s (okay for alternativ e brand) for nebulizer treatment [facility] Kit 11-22 00:00: 00 Yes [id number] J40: Brochitis - Dispense # 1 Jose Respironic s (okay for alternativ e brand) for nebulizer treatment [facility] Kit 11-22 00:00: 00 Yes [id number] J40: Brochitis - Dispense # 1 Jose Respironic s (okay for alternativ e brand) for nebulizer treatment [facility] Kit 11-22 00:00: 00 Yes [id number] J40: Brochitis - Dispense # 1 Jose Respironic s (okay for alternativ e brand) for nebulizer treatment [facility] Kit 11-22 00:00: 00 Yes [id number] J40: Brochitis - Dispense # 1 Jose Respironic s (okay for alternativ e brand) for nebulizer treatment [facility] Kit 11-22 00:00: 00 Yes [id number] J40: Brochitis - Dispense # 1 Jose Respironic s (okay for alternativ e brand) for nebulizer treatment [facility] Kit 11-22 00:00: 00 Yes [id number] J40: Brochitis - Dispense # 1 Jose Respironic s (okay for alternativ e brand) for nebulizer treatment [facility] Kit 11-22 00:00: 00 Yes [id number] J40: Brochitis - Dispense # 1 Jose Respironic s (okay for alternativ e brand) for nebulizer treatment [facility] Kit 11-22 00:00: 00 Yes [id number] J40: Brochitis - Dispense # 1 Jose Respironic s (okay for alternativ e brand) for nebulizer treatment [facility] Kit 11-22 00:00: 00 Yes [id number] J40: Brochitis - Dispense # 1 Jose Respironic s (okay for alternativ e brand) for nebulizer treatment [facility] Kit 11-22 00:00: 00 Yes [id number] J40: Brochitis - Dispense # 1 Jose Respironic s (okay for alternativ e brand) for nebulizer treatment [facility] Kit 11-22 00:00: 00 Yes [id number] J40: Brochitis - Dispense # 1 Jose Respironic s (okay for alternativ e brand) for nebulizer treatment [facility] Kit 11-22 00:00: 00 Yes [id number] J40: Brochitis - Dispense # 1 Jose Respironic s (okay for alternativ e brand) for nebulizer treatment [facility] Kit 11-22 00:00: 00 Yes [id number] J40: Brochitis - Dispense # 1 Jose Respironic s (okay for alternativ e brand) for nebulizer treatment [facility] Kit 11-22 00:00: 00 Yes [id number] J40: Brochitis - Dispense # 1 Jose Respironic s (okay for alternativ e brand) for nebulizer treatment [facility] 11-22 00:00: 00 Yes [id number] J40: Brochitis - Dispense # 1 Jose Respironic s (okay for alternativ e brand) for nebulizer treatment [facility] 11-22 00:00: 00 Yes [id number] J40: Brochitis - Dispense # 1 Jose Respironic s (okay for alternativ e brand) for nebulizer treatment [facility] Kit 11-22 00:00: 00 Yes [id number] J40: Brochitis - Dispense # 1 Jose Respironic s (okay for alternativ e brand) for nebulizer treatment [facility] Kit 11-22 00:00: 00 Yes [id number] J40: Brochitis - Dispense # 1 Jose Respironic s (okay for alternativ e brand) for nebulizer treatment [facility] Kit 11-22 00:00: 00 Yes [id number] J40: Brochitis - Dispense # 1 Jose Respironic s (okay for alternativ e brand) for nebulizer treatment [facility] Kit 11-22 00:00: 00 Yes [id number] J40: Brochitis - Dispense # 1 Jose Respironic s (okay for alternativ e brand) for nebulizer treatment [facility] Kit 11-22 00:00: 00 Yes [id number] J40: Brochitis - Dispense # 1 Jose Respironic s (okay for alternativ e brand) for nebulizer treatment [facility] Kit 11-22 00:00: 00 Yes [id number] J40: Brochitis - Dispense # 1 Jose Respironic s (okay for alternativ e brand) for nebulizer treatment [facility] Kit 11-22 00:00: 00 Yes [id number] J40: Brochitis - Dispense # 1 Jose Respironic s (okay for alternativ e brand) for nebulizer treatment [facility] Kit 11-22 00:00: 00 Yes [id number] J40: Brochitis - Dispense # 1 Jose Respironic s (okay for alternativ e brand) for nebulizer treatment [facility] Kit 11-22 00:00: 00 Yes [id number] J40: Brochitis - Dispense # 1 Jose Respironic s (okay for alternativ e brand) for nebulizer treatment [facility] Kit 11-22 00:00: 00 Yes [id number] J40: Brochitis - Dispense # 1 Jose Respironic s (okay for alternativ e brand) for nebulizer treatment [facility] Kit 11-22 00:00: 00 Yes [id number] J40: Brochitis - Dispense # 1 Jose Respironic s (okay for alternativ e brand) for nebulizer treatment [facility] Kit 11-22 00:00: 00 Yes [id number] J40: Brochitis - Dispense # 1 Jose Respironic s (okay for alternativ e brand) for nebulizer treatment [facility] Kit 11-22 00:00: 00 Yes [id number] J40: Brochitis - Dispense # 1 Jose Respironic s (okay for alternativ e brand) for nebulizer treatment [facility] Kit 11-22 00:00: 00 Yes [id number] J40: Brochitis - Dispense # 1 Jose Respironic s (okay for alternativ e brand) for nebulizer treatment [facility] Kit 11-22 00:00: 00 Yes [id number] J40: Brochitis - Dispense # 1 Jose Respironic s (okay for alternativ e brand) for nebulizer treatment [facility] 11-22 00:00: 00 Yes [id number] J40: Brochitis - Dispense # 1 Jose Respironic s (okay for alternativ e brand) for nebulizer treatment [facility] Kit 11-22 00:00: 00 Yes [id number] J40: Brochitis - Dispense # 1 Jose Respironic s (okay for alternativ e brand) for nebulizer treatment [facility] Kit 11-22 00:00: 00 Yes [id number] J40: Brochitis - Dispense # 1 Jose Respironic s (okay for alternativ e brand) for nebulizer treatment [facility] Kit 11-22 00:00: 00 Yes [id number] J40: Brochitis - Dispense # 1 Jose Respironic s (okay for alternativ e brand) for nebulizer treatment [facility] Kit 11-22 00:00: 00 Yes [id number] J40: Brochitis - Dispense # 1 Jose Respironic s (okay for alternativ e brand) for nebulizer treatment [facility] Kit 11-22 00:00: 00 Yes [id number] J40: Brochitis - Dispense # 1 Jose Respironic s (okay for alternativ e brand) for nebulizer treatment [facility] Kit 11-22 00:00: 00 Yes [id number] J40: Brochitis - Dispense # 1 Jose Respironic s (okay for alternativ e brand) for nebulizer treatment [facility] Kit 11-22 00:00: 00 Yes [id number] J40: Brochitis - Dispense # 1 Jose Respironic s (okay for alternativ e brand) for nebulizer treatment [facility] Kit 11-22 00:00: 00 Yes [id number] J40: Brochitis - Dispense # 1 Jose Respironic s (okay for alternativ e brand) for nebulizer treatment [facility] Kit 11-22 00:00: 00 Yes [id number] J40: Brochitis - Dispense # 1 Jose Respironic s (okay for alternativ e brand) for nebulizer treatment [facility] Kit 11-22 00:00: 00 Yes [id number] J40: Brochitis - Dispense # 1 Jose Respironic s (okay for alternativ e brand) for nebulizer treatment [facility] Kit 11-22 00:00: 00 Yes [id number] J40: Brochitis - Dispense # 1 Jose Respironic s (okay for alternativ e brand) for nebulizer treatment [facility] Kit 11-22 00:00: 00 Yes [id number] J40: Brochitis - Dispense # 1 Jose Respironic s (okay for alternativ e brand) for nebulizer treatment [facility] Kit 11-22 00:00: 00 Yes [id number] J40: Brochitis - Dispense # 1 Jose Respironic s (okay for alternativ e brand) for nebulizer treatment [facility] Kit 11-22 00:00: 00 Yes [id number] J40: Brochitis - Dispense # 1 [facility] (okay for alternativ e brand) for nebulizer treatment [facility] 11-22 00:00: 00 Yes [id number] J40: Brochitis - Dispense # 1 Jose Respiron[facility] s (okay for alternativ e brand) for nebulizer treatment [facility] 11-22 00:00: 00 Yes [id number] J40: Brochitis - Dispense # 1 Jose Respiron[facility] s (okay for alternativ e brand) for nebulizer treatment [facility] 11-22 00:00: 00 Yes [id number] J40: Brochitis - Dispense # 1 Jose Respiron[facility] s (okay for alternativ e brand) for nebulizer treatment [facility] 11-22 00:00: 00 Yes [id number] J40: Brochitis - Dispense # 1 Jose Respiron[facility] s (okay for alternativ e brand) for nebulizer treatment [facility] 11-22 00:00: 00 Yes [id number] J40: Brochitis - Dispense # 1 Jose Respiron[facility] s (okay for alternativ e brand) for nebulizer treatment [facility] 11-22 00:00: 00 Yes [id number] J40: Brochitis - Dispense # 1 Jose Respironic s (okay for alternativ e brand) for nebulizer treatment [facility] Kit 11-22 00:00: 00 Yes [id number] J40: Brochitis - Dispense # 1 Jose Respiron[facility] s (okay for alternativ e brand) for nebulizer treatment [facility] Kit 11-22 00:00: 00 Yes [id number] J40: Brochitis - Dispense # 1 Jose Respiron[facility] s (okay for alternativ e brand) for nebulizer treatment [facility] Kit 11-22 00:00: 00 Yes [id number] J40: Brochitis - Dispense # 1 Jose Respironic s (okay for alternativ e brand) for nebulizer treatment [facility] Kit 11-22 00:00: 00 Yes [id number] J40: Brochitis - Dispense # 1 Jose Respironic s (okay for alternativ e brand) for nebulizer treatment [facility] Kit 11-22 00:00: 00 Yes [id number] J40: Brochitis - Dispense # 1 Jose Respiron[facility] s (okay for alternativ e brand) for nebulizer treatment [facility] Kit 11-22 00:00: 00 Yes [id number] J40: Brochitis - Dispense # 1 Jose Respiron[facility] s (okay for alternativ e brand) for nebulizer treatment [facility] 11-22 00:00: 00 Yes [id number] J40: Brochitis - Dispense # 1 Jose Respiron[facility] s (okay for alternativ e brand) for nebulizer treatment [facility] 11-22 00:00: 00 Yes [id number] J40: Brochitis - Dispense # 1 Jose Respiron[facility] s (okay for alternativ e brand) for nebulizer treatment [facility] 11-22 00:00: 00 Yes [id number] J40: Brochitis - Dispense # 1 Jose Respiron[facility] s (okay for alternativ e brand) for nebulizer treatment [facility] Kit 11-22 00:00: 00 Yes [id number] J40: Brochitis - Dispense # 1 Jose Respironic s (okay for alternativ e brand) for nebulizer treatment [facility] 11-22 00:00: 00 Yes [id number] J40: Brochitis - Dispense # 1 Jose Respironic s (okay for alternativ e brand) for nebulizer treatment [facility] 11-22 00:00: 00 Yes [id number] J40: Brochitis - Dispense # 1 Jose Respiron[facility] s (okay for alternativ e brand) for nebulizer treatment [facility] 11-22 00:00: 00 Yes [id number] J40: Brochitis - Dispense # 1 Jose Respiron[facility] s (okay for alternativ e brand) for nebulizer treatment [facility] 11-22 00:00: 00 Yes [id number] J40: Brochitis - Dispense # 1 Jose Respironic s (okay for alternativ e brand) for nebulizer treatment [facility] ALCOHOL PREP PADS PadM 0 01-14 00:00: 00 Yes [facility] ALCOHOL PREP PADS PadM 0 14 00:00: 00 Yes [facility] ALCOHOL PREP PADS PadM 0 14 00:00: 00 Yes [facility] ALCOHOL PREP PADS PadM 0 14 00:00: 00 Yes [facility] ALCOHOL PREP PADS PadM 0 14 00:00: 00 Yes [facility] ALCOHOL PREP PADS PadM 0 14 00:00: 00 Yes [facility] ALCOHOL PREP PADS PadM 0 14 00:00: 00 Yes [facility] ALCOHOL PREP PADS PadM 0 14 00:00: 00 Yes [facility] ALCOHOL PREP PADS PadM 0 14 00:00: 00 Yes [facility] ALCOHOL PREP PADS PadM 0 14 00:00: 00 Yes [facility] ALCOHOL PREP PADS PadM 0 14 00:00: 00 Yes [facility] ALCOHOL PREP PADS PadM 2018-0 614 00:00: 00 Yes [facility] ALCOHOL PREP PADS PadM 2018-0 614 00:00: 00 Yes [facility] ALCOHOL PREP PADS PadM 2018-0 6-14 00:00: 00 Yes [facility] ALCOHOL PREP PADS PadM 2017-0 614 00:00: 00 Yes [facility] ALCOHOL PREP PADS PadM 2018-0 6-14 00:00: 00 Yes [facility] ALCOHOL PREP PADS PadM 2018-0 614 00:00: 00 Yes [facility] ALCOHOL PREP PADS PadM 2018-0 614 00:00: 00 Yes [facility] ALCOHOL PREP PADS PadM 2018-0 614 00:00: 00 Yes [facility] ALCOHOL PREP PADS PadM 2018-0 614 00:00: 00 Yes [facility] ALCOHOL PREP PADS PadM 2017-0 614 00:00: 00 Yes [facility] ALCOHOL PREP PADS PadM 2017-0 614 00:00: 00 Yes [facility] ALCOHOL PREP PADS PadM 2018-0 614 00:00: 00 Yes [facility] ALCOHOL PREP PADS PadM 2018-0 614 00:00: 00 Yes [facility] ALCOHOL PREP PADS PadM 2018-0 614 00:00: 00 Yes [facility] ALCOHOL PREP PADS PadM 2017-0 614 00:00: 00 Yes [facility] ALCOHOL PREP PADS PadM 2018-0 614 00:00: 00 Yes [facility] ALCOHOL PREP PADS PadM 2018-0 614 00:00: 00 Yes [facility] ALCOHOL PREP PADS PadM 2018-0 614 00:00: 00 Yes [facility] ALCOHOL PREP PADS PadM 2018-0 6-14 00:00: 00 Yes [facility] ALCOHOL PREP PADS PadM 2018-0 6-14 00:00: 00 Yes [facility] ALCOHOL PREP PADS PadM 2018-0 6-14 00:00: 00 Yes [facility] ALCOHOL PREP PADS PadM 2018-0 6-14 00:00: 00 Yes [facility] ALCOHOL PREP PADS PadM 2018-0 6-14 00:00: 00 Yes [facility] ALCOHOL PREP PADS PadM 2018-0 6-14 00:00: 00 Yes [facility] ALCOHOL PREP PADS PadM 2017-0 614 00:00: 00 Yes [facility] ALCOHOL PREP PADS PadM 2018-0 6-14 00:00: 00 Yes [facility] ALCOHOL PREP PADS PadM 2018-0 614 00:00: 00 Yes [facility] ALCOHOL PREP PADS PadM 2017-0 614 00:00: 00 Yes [facility] ALCOHOL PREP PADS PadM 2018-0 614 00:00: 00 Yes [facility] ALCOHOL PREP PADS PadM 2017-0 614 00:00: 00 Yes [facility] ALCOHOL PREP PADS PadM 2017-0 614 00:00: 00 Yes [facility] ALCOHOL PREP PADS PadM 2017-0 614 00:00: 00 Yes [facility] ALCOHOL PREP PADS PadM 2017-0 614 00:00: 00 Yes [facility] ALCOHOL PREP PADS PadM 2018-0 614 00:00: 00 Yes [facility] ALCOHOL PREP PADS PadM 2018-0 614 00:00: 00 Yes [facility] ALCOHOL PREP PADS PadM 2017-0 614 00:00: 00 Yes [facility] ALCOHOL PREP PADS PadM 2018-0 6-14 00:00: 00 Yes [facility] ALCOHOL PREP PADS PadM 2017-0 6-14 00:00: 00 Yes [facility] ALCOHOL PREP PADS PadM 2018-0 6-14 00:00: 00 Yes [facility] ALCOHOL PREP PADS PadM 2018-0 6-14 00:00: 00 Yes [facility] ALCOHOL PREP PADS PadM 2018-0 6-14 00:00: 00 Yes [facility] ALCOHOL PREP PADS PadM 2018-0 6-14 00:00: 00 Yes [facility] ALCOHOL PREP PADS PadM 2017-0 614 00:00: 00 Yes [facility] ALCOHOL PREP PADS PadM 2017-0 14 00:00: 00 Yes [facility] ALCOHOL PREP PADS PadM 2017-0 614 00:00: 00 Yes [facility] ALCOHOL PREP PADS PadM 2017-0 614 00:00: 00 Yes [facility] ALCOHOL PREP PADS PadM 2017-0 614 00:00: 00 Yes [facility] ALCOHOL PREP PADS PadM 2017-0 614 00:00: 00 Yes [facility] ALCOHOL PREP PADS PadM 2017-0 14 00:00: 00 Yes [facility] ALCOHOL PREP PADS PadM 2017-0 14 00:00: 00 Yes [facility] ALCOHOL PREP PADS PadM 2017-0 14 00:00: 00 Yes [facility] ALCOHOL PREP PADS PadM 2017-0 14 00:00: 00 Yes [facility] ALCOHOL PREP PADS PadM 2017-0 14 00:00: 00 Yes [facility] ALCOHOL PREP PADS PadM 2017-0 14 00:00: 00 Yes [facility] ALCOHOL PREP PADS PadM 2017-0 14 00:00: 00 Yes [facility] ALCOHOL PREP PADS PadM 2017-0 14 00:00: 00 Yes [facility] ALCOHOL PREP PADS PadM 2017-0 14 00:00: 00 Yes [facility] ALCOHOL PREP PADS PadM 2017-0 14 00:00: 00 Yes [facility] ALCOHOL PREP PADS PadM 2017-0 614 00:00: 00 Yes [facility] ALCOHOL PREP PADS PadM 2018-0 14 00:00: 00 Yes [facility] ALCOHOL PREP PADS PadM 2018-0 614 00:00: 00 Yes [facility] ALCOHOL PREP PADS PadM 2017-0 614 00:00: 00 Yes [facility] ALCOHOL PREP PADS PadM 2018-0 614 00:00: 00 Yes [facility] ALCOHOL PREP PADS PadM 2017-0 6-14 00:00: 00 Yes [facility] ALCOHOL PREP PADS PadM 2018-0 6-14 00:00: 00 Yes [facility] ALCOHOL PREP PADS PadM 2018-0 6-14 00:00: 00 Yes [facility] ALCOHOL PREP PADS PadM 2017-0 6-14 00:00: 00 Yes [facility] ALCOHOL PREP PADS PadM 2017-0 6-14 00:00: 00 Yes [facility] ALCOHOL PREP PADS PadM 2017-0 614 00:00: 00 Yes [facility] ALCOHOL PREP PADS PadM 2017-0 614 00:00: 00 Yes [facility] ALCOHOL PREP PADS PadM 2017-0 6-14 00:00: 00 Yes [facility] ALCOHOL PREP PADS PadM 2017-0 614 00:00: 00 Yes [facility] ALCOHOL PREP PADS PadM 2017-0 614 00:00: 00 Yes [facility] ALCOHOL PREP PADS PadM 2017-0 614 00:00: 00 Yes [facility] ALCOHOL PREP PADS PadM 2017-0 614 00:00: 00 Yes [facility] ALCOHOL PREP PADS PadM 2017-0 6-14 00:00: 00 Yes [facility] ALCOHOL PREP PADS PadM 2017-0 614 00:00: 00 Yes [facility] ALCOHOL PREP PADS PadM 2017-0 6-14 00:00: 00 Yes [facility] ALCOHOL PREP PADS PadM 2017-0 6-14 00:00: 00 Yes [facility] ALCOHOL PREP PADS PadM 2017-0 6-14 00:00: 00 Yes [facility] ALCOHOL PREP PADS PadM 2018-0 6-14 00:00: 00 Yes [facility] ALCOHOL PREP PADS PadM 2018-0 6-14 00:00: 00 Yes [facility] ALCOHOL PREP PADS PadM 2017-0 6-14 00:00: 00 Yes [facility] ALCOHOL PREP PADS PadM 2018-0 6-14 00:00: 00 Yes [facility] ALCOHOL PREP PADS PadM 2017-0 614 00:00: 00 Yes [facility] ALCOHOL PREP PADS PadM 2018-0 614 00:00: 00 Yes [facility] ALCOHOL PREP PADS PadM 2018-0 614 00:00: 00 Yes [facility] ALCOHOL PREP PADS PadM 2017-0 614 00:00: 00 Yes [facility] ALCOHOL PREP PADS PadM 2018-0 614 00:00: 00 Yes [facility] ALCOHOL PREP PADS PadM 2017-0 614 00:00: 00 Yes [facility] ALCOHOL PREP PADS PadM 2018-0 614 00:00: 00 Yes [facility] ALCOHOL PREP PADS PadM 2018-0 614 00:00: 00 Yes [facility] ALCOHOL PREP PADS PadM 2017-0 14 00:00: 00 Yes [facility] ALCOHOL PREP PADS PadM 2017-0 614 00:00: 00 Yes [facility] ALCOHOL PREP PADS PadM 2017-0 614 00:00: 00 Yes [facility] ALCOHOL PREP PADS PadM 2018-0 14 00:00: 00 Yes [facility] ALCOHOL PREP PADS PadM 2018-0 614 00:00: 00 Yes [facility] ALCOHOL PREP PADS PadM 2017-0 14 00:00: 00 Yes [facility] ALCOHOL PREP PADS PadM 2017-0 614 00:00: 00 Yes [facility] ALCOHOL PREP PADS PadM 2018-0 614 00:00: 00 Yes [facility] ALCOHOL PREP PADS PadM 2018-0 614 00:00: 00 Yes [facility] ALCOHOL PREP PADS PadM 2018-0 614 00:00: 00 Yes [facility] ALCOHOL PREP PADS PadM 2018-0 614 00:00: 00 Yes [facility] ALCOHOL PREP PADS PadM 2018-0 614 00:00: 00 Yes [facility] ALCOHOL PREP PADS PadM 2018-0 6-14 00:00: 00 Yes [facility] ALCOHOL PREP PADS PadM 2018-0 6-14 00:00: 00 Yes [facility] ALCOHOL PREP PADS PadM 2018-0 6-14 00:00: 00 Yes [facility] ALCOHOL PREP PADS PadM 2018-0 6-14 00:00: 00 Yes [facility] ALCOHOL PREP PADS PadM 2018-0 6-14 00:00: 00 Yes [facility] ALCOHOL PREP PADS PadM 2018-0 6-14 00:00: 00 Yes [facility] ALCOHOL PREP PADS PadM 2018-0 6-14 00:00: 00 Yes [facility] ALCOHOL PREP PADS PadM 2018-0 6-14 00:00: 00 Yes [facility] ALCOHOL PREP PADS PadM 2018-0 6-14 00:00: 00 Yes [facility] ALCOHOL PREP PADS PadM 2017-0 6-14 00:00: 00 Yes [facility] ALCOHOL PREP PADS PadM 2017-0 6-14 00:00: 00 Yes [facility] ALCOHOL PREP PADS PadM 2018-0 614 00:00: 00 Yes [facility] ALCOHOL PREP PADS PadM 2018-0 6-14 00:00: 00 Yes [facility] ALCOHOL PREP PADS PadM 2018-0 6-14 00:00: 00 Yes [facility] ALCOHOL PREP PADS PadM 2018-0 614 00:00: 00 Yes [facility] ALCOHOL PREP PADS PadM 2018-0 6-14 00:00: 00 Yes [facility] ALCOHOL PREP PADS PadM 2018-0 6-14 00:00: 00 Yes [facility] ALCOHOL PREP PADS PadM 2018-0 6-14 00:00: 00 Yes [facility] ALCOHOL PREP PADS PadM 2018-0 6-14 00:00: 00 Yes [facility] ALCOHOL PREP PADS PadM 2018-0 6-14 00:00: 00 Yes [facility] ALCOHOL PREP PADS PadM 2018-0 6-14 00:00: 00 Yes [facility] ALCOHOL PREP PADS PadM 2018-0 614 00:00: 00 Yes [facility] ALCOHOL PREP PADS PadM 2018-0 614 00:00: 00 Yes [facility] ALCOHOL PREP PADS PadM 2018-0 6-14 00:00: 00 Yes [facility] ALCOHOL PREP PADS PadM 2017-0 614 00:00: 00 Yes [facility] ALCOHOL PREP PADS PadM 2018-0 6-14 00:00: 00 Yes [facility] ALCOHOL PREP PADS PadM 2018-0 614 00:00: 00 Yes [facility] ALCOHOL PREP PADS PadM 2018-0 614 00:00: 00 Yes [facility] ALCOHOL PREP PADS PadM 2018-0 614 00:00: 00 Yes [facility] ALCOHOL PREP PADS PadM 2018-0 614 00:00: 00 Yes [facility] ALCOHOL PREP PADS PadM 2017-0 614 00:00: 00 Yes [facility] ALCOHOL PREP PADS PadM 2017-0 614 00:00: 00 Yes [facility] ALCOHOL PREP PADS PadM 2018-0 614 00:00: 00 Yes [facility] ALCOHOL PREP PADS PadM 2018-0 614 00:00: 00 Yes [facility] ALCOHOL PREP PADS PadM 2018-0 614 00:00: 00 Yes [facility] ALCOHOL PREP PADS PadM 2017-0 614 00:00: 00 Yes [facility] ALCOHOL PREP PADS PadM 2018-0 614 00:00: 00 Yes [facility] ALCOHOL PREP PADS PadM 2018-0 614 00:00: 00 Yes [facility] ALCOHOL PREP PADS PadM 2018-0 614 00:00: 00 Yes [facility] ALCOHOL PREP PADS PadM 2018-0 6-14 00:00: 00 Yes [facility] ALCOHOL PREP PADS PadM 2018-0 6-14 00:00: 00 Yes [facility] ALCOHOL PREP PADS PadM 2018-0 6-14 00:00: 00 Yes [facility] ALCOHOL PREP PADS PadM 2018-0 6-14 00:00: 00 Yes [facility] ALCOHOL PREP PADS PadM 2018-0 6-14 00:00: 00 Yes [facility] ALCOHOL PREP PADS PadM 2018-0 6-14 00:00: 00 Yes [facility] ALCOHOL PREP PADS PadM 2017-0 614 00:00: 00 Yes [facility] ALCOHOL PREP PADS PadM 2018-0 6-14 00:00: 00 Yes [facility] ALCOHOL PREP PADS PadM 2018-0 614 00:00: 00 Yes [facility] ALCOHOL PREP PADS PadM 2017-0 614 00:00: 00 Yes [facility] ALCOHOL PREP PADS PadM 2018-0 614 00:00: 00 Yes [facility] ALCOHOL PREP PADS PadM 2017-0 614 00:00: 00 Yes [facility] ALCOHOL PREP PADS PadM 2017-0 614 00:00: 00 Yes [facility] ALCOHOL PREP PADS PadM 2017-0 614 00:00: 00 Yes [facility] ALCOHOL PREP PADS PadM 2017-0 614 00:00: 00 Yes [facility] ALCOHOL PREP PADS PadM 2018-0 614 00:00: 00 Yes [facility] ALCOHOL PREP PADS PadM 2018-0 614 00:00: 00 Yes [facility] ALCOHOL PREP PADS PadM 2017-0 614 00:00: 00 Yes [facility] ALCOHOL PREP PADS PadM 2018-0 6-14 00:00: 00 Yes [facility] ALCOHOL PREP PADS PadM 2017-0 6-14 00:00: 00 Yes [facility] ALCOHOL PREP PADS PadM 2018-0 6-14 00:00: 00 Yes [facility] ALCOHOL PREP PADS PadM 2018-0 6-14 00:00: 00 Yes [facility] ALCOHOL PREP PADS PadM 2018-0 6-14 00:00: 00 Yes [facility] ALCOHOL PREP PADS PadM 2018-0 6-14 00:00: 00 Yes [facility] ALCOHOL PREP PADS PadM 2017-0 614 00:00: 00 Yes [facility] ALCOHOL PREP PADS PadM 2017-0 14 00:00: 00 Yes [facility] ALCOHOL PREP PADS PadM 2017-0 614 00:00: 00 Yes [facility] ALCOHOL PREP PADS PadM 2017-0 614 00:00: 00 Yes [facility] ALCOHOL PREP PADS PadM 2017-0 614 00:00: 00 Yes [facility] ALCOHOL PREP PADS PadM 2017-0 614 00:00: 00 Yes [facility] ALCOHOL PREP PADS PadM 2017-0 14 00:00: 00 Yes [facility] ALCOHOL PREP PADS PadM 2017-0 14 00:00: 00 Yes [facility] ALCOHOL PREP PADS PadM 2017-0 14 00:00: 00 Yes [facility] ALCOHOL PREP PADS PadM 2017-0 14 00:00: 00 Yes [facility] ALCOHOL PREP PADS PadM 2017-0 14 00:00: 00 Yes [facility] ALCOHOL PREP PADS PadM 2017-0 14 00:00: 00 Yes [facility] ALCOHOL PREP PADS PadM 2017-0 14 00:00: 00 Yes [facility] ALCOHOL PREP PADS PadM 2017-0 14 00:00: 00 Yes [facility] ALCOHOL PREP PADS PadM 2017-0 14 00:00: 00 Yes [facility] ALCOHOL PREP PADS PadM 2017-0 14 00:00: 00 Yes [facility] ALCOHOL PREP PADS PadM 2017-0 614 00:00: 00 Yes [facility] ALCOHOL PREP PADS PadM 2018-0 14 00:00: 00 Yes [facility] ALCOHOL PREP PADS PadM 2018-0 614 00:00: 00 Yes [facility] ALCOHOL PREP PADS PadM 2017-0 614 00:00: 00 Yes [facility] ALCOHOL PREP PADS PadM 2018-0 614 00:00: 00 Yes [facility] ALCOHOL PREP PADS PadM 2017-0 6-14 00:00: 00 Yes [facility] ALCOHOL PREP PADS PadM 2018-0 6-14 00:00: 00 Yes [facility] ALCOHOL PREP PADS PadM 2018-0 6-14 00:00: 00 Yes [facility] ALCOHOL PREP PADS PadM 2017-0 6-14 00:00: 00 Yes [facility] ALCOHOL PREP PADS PadM 2017-0 6-14 00:00: 00 Yes [facility] ALCOHOL PREP PADS PadM 2017-0 614 00:00: 00 Yes [facility] ALCOHOL PREP PADS PadM 2017-0 614 00:00: 00 Yes [facility] ALCOHOL PREP PADS PadM 2017-0 6-14 00:00: 00 Yes [facility] ALCOHOL PREP PADS PadM 2017-0 614 00:00: 00 Yes [facility] ALCOHOL PREP PADS PadM 2017-0 614 00:00: 00 Yes [facility] ALCOHOL PREP PADS PadM 2017-0 614 00:00: 00 Yes [facility] ALCOHOL PREP PADS PadM 2017-0 614 00:00: 00 Yes [facility] ALCOHOL PREP PADS PadM 2017-0 6-14 00:00: 00 Yes [facility] ALCOHOL PREP PADS PadM 2017-0 614 00:00: 00 Yes [facility] ALCOHOL PREP PADS PadM 2017-0 6-14 00:00: 00 Yes [facility] ALCOHOL PREP PADS PadM 2017-0 6-14 00:00: 00 Yes [facility] ALCOHOL PREP PADS PadM 2017-0 6-14 00:00: 00 Yes [facility] ALCOHOL PREP PADS PadM 2018-0 6-14 00:00: 00 Yes [facility] ALCOHOL PREP PADS PadM 2018-0 6-14 00:00: 00 Yes [facility] ALCOHOL PREP PADS PadM 2017-0 6-14 00:00: 00 Yes [facility] ALCOHOL PREP PADS PadM 2018-0 6-14 00:00: 00 Yes [facility] ALCOHOL PREP PADS PadM 2017-0 614 00:00: 00 Yes [facility] ALCOHOL PREP PADS PadM 2018-0 614 00:00: 00 Yes [facility] ALCOHOL PREP PADS PadM 2018-0 614 00:00: 00 Yes [facility] ALCOHOL PREP PADS PadM 2017-0 614 00:00: 00 Yes [facility] ALCOHOL PREP PADS PadM 2018-0 614 00:00: 00 Yes [facility] ALCOHOL PREP PADS PadM 2017-0 614 00:00: 00 Yes [facility] ALCOHOL PREP PADS PadM 2018-0 614 00:00: 00 Yes [facility] ALCOHOL PREP PADS PadM 2018-0 614 00:00: 00 Yes [facility] ALCOHOL PREP PADS PadM 2017-0 14 00:00: 00 Yes [facility] ALCOHOL PREP PADS PadM 2017-0 614 00:00: 00 Yes [facility] ALCOHOL PREP PADS PadM 2017-0 614 00:00: 00 Yes [facility] ALCOHOL PREP PADS PadM 2018-0 14 00:00: 00 Yes [facility] ALCOHOL PREP PADS PadM 2018-0 614 00:00: 00 Yes [facility] ALCOHOL PREP PADS PadM 2017-0 14 00:00: 00 Yes [facility] ALCOHOL PREP PADS PadM 2017-0 614 00:00: 00 Yes [facility] ALCOHOL PREP PADS PadM 2018-0 614 00:00: 00 Yes [facility] ALCOHOL PREP PADS PadM 2018-0 614 00:00: 00 Yes [facility] ALCOHOL PREP PADS PadM 2018-0 614 00:00: 00 Yes [facility] ALCOHOL PREP PADS PadM 2018-0 614 00:00: 00 Yes [facility] ALCOHOL PREP PADS PadM 2018-0 614 00:00: 00 Yes [facility] ALCOHOL PREP PADS PadM 2018-0 6-14 00:00: 00 Yes [facility] loxapine (LOXITANE) 50 mg capsule 08-22 00:00: 00 Yes [facility] loxapine (LOXITANE) 50 mg capsule 08-22 00:00: 00 Yes [facility] loxapine (LOXITANE) 50 mg capsule 08-22 00:00: 00 Yes [facility] loxapine (LOXITANE) 50 mg capsule 08-22 00:00: 00 Yes [facility] loxapine (LOXITANE) 50 mg capsule 08-22 00:00: 00 Yes [facility] loxapine (LOXITANE) 50 mg capsule 08-22 00:00: 00 Yes [facility] loxapine (LOXITANE) 50 mg capsule 08-22 00:00: 00 Yes [facility] loxapine (LOXITANE) 50 mg capsule 08-22 00:00: 00 Yes [facility] loxapine (LOXITANE) 50 mg capsule 08-22 00:00: 00 Yes [facility] loxapine (LOXITANE) 50 mg capsule 08-22 00:00: 00 Yes [facility] loxapine (LOXITANE) 50 mg capsule 08-22 00:00: 00 Yes [facility] loxapine (LOXITANE) 50 mg capsule 08-22 00:00: 00 Yes [facility] loxapine (LOXITANE) 50 mg capsule 08-22 00:00: 00 Yes [facility] loxapine (LOXITANE) 50 mg capsule 08-22 00:00: 00 Yes [facility] loxapine (LOXITANE) 50 mg capsule 08-22 00:00: 00 Yes [facility] loxapine (LOXITANE) 50 mg capsule 08-22 00:00: 00 Yes [facility] loxapine (LOXITANE) 50 mg capsule 08-22 00:00: 00 Yes [facility] loxapine (LOXITANE) 50 mg capsule 08-22 00:00: 00 Yes [facility] loxapine (LOXITANE) 50 mg capsule 08-22 00:00: 00 Yes [facility] loxapine (LOXITANE) 50 mg capsule 08-22 00:00: 00 Yes [facility] loxapine (LOXITANE) 50 mg capsule 08-22 00:00: 00 Yes [facility] loxapine (LOXITANE) 50 mg capsule 08-22 00:00: 00 Yes [facility] loxapine (LOXITANE) 50 mg capsule 08-22 00:00: 00 Yes [facility] loxapine (LOXITANE) 50 mg capsule 08-22 00:00: 00 Yes [facility] loxapine (LOXITANE) 50 mg capsule 08-22 00:00: 00 Yes [facility] loxapine (LOXITANE) 50 mg capsule 08-22 00:00: 00 Yes [facility] loxapine (LOXITANE) 50 mg capsule 08-22 00:00: 00 Yes [facility] loxapine (LOXITANE) 50 mg capsule 08-22 00:00: 00 Yes [facility] loxapine (LOXITANE) 50 mg capsule 08-22 00:00: 00 Yes [facility] loxapine (LOXITANE) 50 mg capsule 08-22 00:00: 00 Yes [facility] loxapine (LOXITANE) 50 mg capsule 08-22 00:00: 00 Yes [facility] loxapine (LOXITANE) 50 mg capsule 08-22 00:00: 00 Yes [facility] loxapine (LOXITANE) 50 mg capsule 08-22 00:00: 00 Yes [facility] loxapine (LOXITANE) 50 mg capsule 08-22 00:00: 00 Yes [facility] loxapine (LOXITANE) 50 mg capsule 08-22 00:00: 00 Yes [facility] loxapine (LOXITANE) 50 mg capsule 08-22 00:00: 00 Yes [facility] loxapine (LOXITANE) 50 mg capsule 08-22 00:00: 00 Yes [facility] loxapine (LOXITANE) 50 mg capsule 08-22 00:00: 00 Yes [facility] loxapine (LOXITANE) 50 mg capsule 08-22 00:00: 00 Yes [facility] loxapine (LOXITANE) 50 mg capsule 08-22 00:00: 00 Yes [facility] loxapine (LOXITANE) 50 mg capsule 08-22 00:00: 00 Yes [facility] loxapine (LOXITANE) 50 mg capsule 08-22 00:00: 00 Yes [facility] loxapine (LOXITANE) 50 mg capsule 08-22 00:00: 00 Yes [facility] loxapine (LOXITANE) 50 mg capsule 08-22 00:00: 00 Yes [facility] loxapine (LOXITANE) 50 mg capsule 08-22 00:00: 00 Yes [facility] loxapine (LOXITANE) 50 mg capsule 08-22 00:00: 00 Yes [facility] loxapine (LOXITANE) 50 mg capsule 08-22 00:00: 00 Yes [facility] loxapine (LOXITANE) 50 mg capsule 08-22 00:00: 00 Yes [facility] loxapine (LOXITANE) 50 mg capsule 08-22 00:00: 00 Yes [facility] loxapine (LOXITANE) 50 mg capsule 08-22 00:00: 00 Yes [facility] loxapine (LOXITANE) 50 mg capsule 08-22 00:00: 00 Yes [facility] loxapine (LOXITANE) 50 mg capsule 08-22 00:00: 00 Yes [facility] loxapine (LOXITANE) 50 mg capsule 08-22 00:00: 00 Yes [facility] loxapine (LOXITANE) 50 mg capsule 08-22 00:00: 00 Yes [facility] loxapine (LOXITANE) 50 mg capsule 08-22 00:00: 00 Yes [facility] loxapine (LOXITANE) 50 mg capsule 08-22 00:00: 00 Yes [facility] loxapine (LOXITANE) 50 mg capsule 08-22 00:00: 00 Yes [facility] loxapine (LOXITANE) 50 mg capsule 08-22 00:00: 00 Yes [facility] loxapine (LOXITANE) 50 mg capsule 08-22 00:00: 00 Yes [facility] loxapine (LOXITANE) 50 mg capsule 08-22 00:00: 00 Yes [facility] loxapine (LOXITANE) 50 mg capsule 08-22 00:00: 00 Yes [facility] loxapine (LOXITANE) 50 mg capsule 08-22 00:00: 00 Yes [facility] loxapine (LOXITANE) 50 mg capsule 08-22 00:00: 00 Yes [facility] loxapine (LOXITANE) 50 mg capsule 08-22 00:00: 00 Yes [facility] loxapine (LOXITANE) 50 mg capsule 08-22 00:00: 00 Yes [facility] loxapine (LOXITANE) 50 mg capsule 08-22 00:00: 00 Yes [facility] loxapine (LOXITANE) 50 mg capsule 08-22 00:00: 00 Yes [facility] loxapine (LOXITANE) 50 mg capsule 08-22 00:00: 00 Yes [facility] loxapine (LOXITANE) 50 mg capsule 08-22 00:00: 00 Yes [facility] loxapine (LOXITANE) 50 mg capsule 08-22 00:00: 00 Yes [facility] loxapine (LOXITANE) 50 mg capsule 08-22 00:00: 00 Yes [facility] loxapine (LOXITANE) 50 mg capsule 08-22 00:00: 00 Yes [facility] loxapine (LOXITANE) 50 mg capsule 08-22 00:00: 00 Yes [facility] loxapine (LOXITANE) 50 mg capsule 08-22 00:00: 00 Yes [facility] loxapine (LOXITANE) 50 mg capsule 08-22 00:00: 00 Yes [facility] loxapine (LOXITANE) 50 mg capsule 08-22 00:00: 00 Yes [facility] loxapine (LOXITANE) 50 mg capsule 08-22 00:00: 00 Yes [facility] loxapine (LOXITANE) 50 mg capsule 08-22 00:00: 00 Yes [facility] loxapine (LOXITANE) 50 mg capsule 08-22 00:00: 00 Yes [facility] loxapine (LOXITANE) 50 mg capsule 08-22 00:00: 00 Yes [facility] loxapine (LOXITANE) 50 mg capsule 08-22 00:00: 00 Yes [facility] loxapine (LOXITANE) 50 mg capsule 08-22 00:00: 00 Yes [facility] loxapine (LOXITANE) 50 mg capsule 08-22 00:00: 00 Yes [facility] loxapine (LOXITANE) 50 mg capsule 08-22 00:00: 00 Yes [facility] loxapine (LOXITANE) 50 mg capsule 08-22 00:00: 00 Yes [facility] loxapine (LOXITANE) 50 mg capsule 08-22 00:00: 00 Yes [facility] loxapine (LOXITANE) 50 mg capsule 08-22 00:00: 00 Yes [facility] loxapine (LOXITANE) 50 mg capsule 08-22 00:00: 00 Yes [facility] loxapine (LOXITANE) 50 mg capsule 08-22 00:00: 00 Yes [facility] loxapine (LOXITANE) 50 mg capsule 08-22 00:00: 00 Yes [facility] loxapine (LOXITANE) 50 mg capsule 08-22 00:00: 00 Yes [facility] loxapine (LOXITANE) 50 mg capsule 08-22 00:00: 00 Yes [facility] loxapine (LOXITANE) 50 mg capsule 08-22 00:00: 00 Yes [facility] loxapine (LOXITANE) 50 mg capsule 08-22 00:00: 00 Yes [facility] loxapine (LOXITANE) 50 mg capsule 08-22 00:00: 00 Yes [facility] loxapine (LOXITANE) 50 mg capsule 08-22 00:00: 00 Yes [facility] loxapine (LOXITANE) 50 mg capsule 08-22 00:00: 00 Yes [facility] loxapine (LOXITANE) 50 mg capsule 08-22 00:00: 00 Yes [facility] loxapine (LOXITANE) 50 mg capsule 08-22 00:00: 00 Yes [facility] loxapine (LOXITANE) 50 mg capsule 08-22 00:00: 00 Yes [facility] loxapine (LOXITANE) 50 mg capsule 08-22 00:00: 00 Yes [facility] loxapine (LOXITANE) 50 mg capsule 08-22 00:00: 00 Yes [facility] loxapine (LOXITANE) 50 mg capsule 08-22 00:00: 00 Yes [facility] loxapine (LOXITANE) 50 mg capsule 08-22 00:00: 00 Yes [facility] loxapine (LOXITANE) 50 mg capsule 08-22 00:00: 00 Yes [facility] loxapine (LOXITANE) 50 mg capsule 08-22 00:00: 00 Yes [facility] loxapine (LOXITANE) 50 mg capsule 08-22 00:00: 00 Yes [facility] loxapine (LOXITANE) 50 mg capsule 08-22 00:00: 00 Yes [facility] loxapine (LOXITANE) 50 mg capsule 08-22 00:00: 00 Yes [facility] loxapine (LOXITANE) 50 mg capsule 08-22 00:00: 00 Yes [facility] loxapine (LOXITANE) 50 mg capsule 08-22 00:00: 00 Yes [facility] loxapine (LOXITANE) 50 mg capsule 08-22 00:00: 00 Yes [facility] loxapine (LOXITANE) 50 mg capsule 08-22 00:00: 00 Yes [facility] loxapine (LOXITANE) 50 mg capsule 08-22 00:00: 00 Yes [facility] loxapine (LOXITANE) 50 mg capsule 08-22 00:00: 00 Yes [facility] loxapine (LOXITANE) 50 mg capsule 08-22 00:00: 00 Yes [facility] loxapine (LOXITANE) 50 mg capsule 08-22 00:00: 00 Yes [facility] loxapine (LOXITANE) 50 mg capsule 08-22 00:00: 00 Yes [facility] loxapine (LOXITANE) 50 mg capsule 08-22 00:00: 00 Yes [facility] loxapine (LOXITANE) 50 mg capsule 08-22 00:00: 00 Yes [facility] loxapine (LOXITANE) 50 mg capsule 08-22 00:00: 00 Yes [facility] loxapine (LOXITANE) 50 mg capsule 08-22 00:00: 00 Yes [facility] loxapine (LOXITANE) 50 mg capsule 08-22 00:00: 00 Yes [facility] loxapine (LOXITANE) 50 mg capsule 08-22 00:00: 00 Yes [facility] loxapine (LOXITANE) 50 mg capsule 08-22 00:00: 00 Yes [facility] loxapine (LOXITANE) 50 mg capsule 08-22 00:00: 00 Yes [facility] loxapine (LOXITANE) 50 mg capsule 08-22 00:00: 00 Yes [facility] loxapine (LOXITANE) 50 mg capsule 08-22 00:00: 00 Yes [facility] loxapine (LOXITANE) 50 mg capsule 08-22 00:00: 00 Yes [facility] loxapine (LOXITANE) 50 mg capsule 08-22 00:00: 00 Yes [facility] loxapine (LOXITANE) 50 mg capsule 08-22 00:00: 00 Yes [facility] loxapine (LOXITANE) 50 mg capsule 08-22 00:00: 00 Yes [facility] loxapine (LOXITANE) 50 mg capsule 08-22 00:00: 00 Yes [facility] loxapine (LOXITANE) 50 mg capsule 08-22 00:00: 00 Yes [facility] loxapine (LOXITANE) 50 mg capsule 08-22 00:00: 00 Yes [facility] loxapine (LOXITANE) 50 mg capsule 08-22 00:00: 00 Yes [facility] loxapine (LOXITANE) 50 mg capsule 08-22 00:00: 00 Yes [facility] loxapine (LOXITANE) 50 mg capsule 08-22 00:00: 00 Yes [facility] loxapine (LOXITANE) 50 mg capsule 08-22 00:00: 00 Yes [facility] loxapine (LOXITANE) 50 mg capsule 08-22 00:00: 00 Yes [facility] loxapine (LOXITANE) 50 mg capsule 08-22 00:00: 00 Yes [facility] loxapine (LOXITANE) 50 mg capsule 08-22 00:00: 00 Yes [facility] loxapine (LOXITANE) 50 mg capsule 08-22 00:00: 00 Yes [facility] loxapine (LOXITANE) 50 mg capsule 08-22 00:00: 00 Yes [facility] loxapine (LOXITANE) 50 mg capsule 08-22 00:00: 00 Yes [facility] loxapine (LOXITANE) 50 mg capsule 08-22 00:00: 00 Yes [facility] loxapine (LOXITANE) 50 mg capsule 08-22 00:00: 00 Yes [facility] loxapine (LOXITANE) 50 mg capsule 08-22 00:00: 00 Yes [facility] loxapine (LOXITANE) 50 mg capsule 08-22 00:00: 00 Yes [facility] loxapine (LOXITANE) 50 mg capsule 08-22 00:00: 00 Yes [facility] loxapine (LOXITANE) 50 mg capsule 08-22 00:00: 00 Yes [facility] loxapine (LOXITANE) 50 mg capsule 08-22 00:00: 00 Yes [facility] loxapine (LOXITANE) 50 mg capsule 08-22 00:00: 00 Yes [facility] loxapine (LOXITANE) 50 mg capsule 08-22 00:00: 00 Yes [facility] loxapine (LOXITANE) 50 mg capsule 08-22 00:00: 00 Yes [facility] loxapine (LOXITANE) 50 mg capsule 08-22 00:00: 00 Yes [facility] loxapine (LOXITANE) 50 mg capsule 08-22 00:00: 00 Yes [facility] loxapine (LOXITANE) 50 mg capsule 08-22 00:00: 00 Yes [facility] loxapine (LOXITANE) 50 mg capsule 08-22 00:00: 00 Yes [facility] loxapine (LOXITANE) 50 mg capsule 08-22 00:00: 00 Yes [facility] loxapine (LOXITANE) 50 mg capsule 08-22 00:00: 00 Yes [facility] loxapine (LOXITANE) 50 mg capsule 08-22 00:00: 00 Yes [facility] loxapine (LOXITANE) 50 mg capsule 08-22 00:00: 00 Yes [facility] loxapine (LOXITANE) 50 mg capsule 08-22 00:00: 00 Yes [facility] loxapine (LOXITANE) 50 mg capsule 08-22 00:00: 00 Yes [facility] loxapine (LOXITANE) 50 mg capsule 08-22 00:00: 00 Yes [facility] loxapine (LOXITANE) 50 mg capsule 08-22 00:00: 00 Yes [facility] loxapine (LOXITANE) 50 mg capsule 08-22 00:00: 00 Yes [facility] loxapine (LOXITANE) 50 mg capsule 08-22 00:00: 00 Yes [facility] loxapine (LOXITANE) 50 mg capsule 08-22 00:00: 00 Yes [facility] loxapine (LOXITANE) 50 mg capsule 08-22 00:00: 00 Yes [facility] loxapine (LOXITANE) 50 mg capsule 08-22 00:00: 00 Yes [facility] loxapine (LOXITANE) 50 mg capsule 08-22 00:00: 00 Yes [facility] loxapine (LOXITANE) 50 mg capsule 08-22 00:00: 00 Yes [facility] loxapine (LOXITANE) 50 mg capsule 08-22 00:00: 00 Yes [facility] loxapine (LOXITANE) 50 mg capsule 08-22 00:00: 00 Yes [facility] loxapine (LOXITANE) 50 mg capsule 08-22 00:00: 00 Yes [facility] loxapine (LOXITANE) 50 mg capsule 08-22 00:00: 00 Yes [facility] loxapine (LOXITANE) 50 mg capsule 08-22 00:00: 00 Yes [facility] loxapine (LOXITANE) 50 mg capsule 08-22 00:00: 00 Yes [facility] loxapine (LOXITANE) 50 mg capsule 08-22 00:00: 00 Yes [facility] loxapine (LOXITANE) 50 mg capsule 08-22 00:00: 00 Yes [facility] loxapine (LOXITANE) 50 mg capsule 08-22 00:00: 00 Yes [facility] loxapine (LOXITANE) 50 mg capsule 08-22 00:00: 00 Yes [facility] loxapine (LOXITANE) 50 mg capsule 08-22 00:00: 00 Yes [facility] loxapine (LOXITANE) 50 mg capsule 08-22 00:00: 00 Yes [facility] loxapine (LOXITANE) 50 mg capsule 08-22 00:00: 00 Yes [facility] loxapine (LOXITANE) 50 mg capsule 08-22 00:00: 00 Yes [facility] loxapine (LOXITANE) 50 mg capsule 08-22 00:00: 00 Yes [facility] loxapine (LOXITANE) 50 mg capsule 08-22 00:00: 00 Yes [facility] loxapine (LOXITANE) 50 mg capsule 08-22 00:00: 00 Yes [facility] loxapine (LOXITANE) 50 mg capsule 08-22 00:00: 00 Yes [facility] loxapine (LOXITANE) 50 mg capsule 08-22 00:00: 00 Yes [facility] loxapine (LOXITANE) 50 mg capsule 08-22 00:00: 00 Yes [facility] loxapine (LOXITANE) 50 mg capsule 08-22 00:00: 00 Yes [facility] loxapine (LOXITANE) 50 mg capsule 08-22 00:00: 00 Yes [facility] loxapine (LOXITANE) 50 mg capsule 08-22 00:00: 00 Yes [facility] loxapine (LOXITANE) 50 mg capsule 08-22 00:00: 00 Yes [facility] loxapine (LOXITANE) 50 mg capsule 08-22 00:00: 00 Yes [facility] loxapine (LOXITANE) 50 mg capsule 08-22 00:00: 00 Yes [facility] loxapine (LOXITANE) 50 mg capsule 08-22 00:00: 00 Yes [facility] loxapine (LOXITANE) 50 mg capsule 08-22 00:00: 00 Yes [facility] loxapine (LOXITANE) 50 mg capsule 08-22 00:00: 00 Yes [facility] loxapine (LOXITANE) 50 mg capsule 08-22 00:00: 00 Yes [facility] loxapine (LOXITANE) 50 mg capsule 08-22 00:00: 00 Yes [facility] loxapine (LOXITANE) 50 mg capsule 08-22 00:00: 00 Yes [facility] loxapine (LOXITANE) 50 mg capsule 08-22 00:00: 00 Yes [facility] loxapine (LOXITANE) 50 mg capsule 08-22 00:00: 00 Yes [facility] loxapine (LOXITANE) 50 mg capsule 08-22 00:00: 00 Yes [facility] loxapine (LOXITANE) 50 mg capsule 08-22 00:00: 00 Yes [facility] loxapine (LOXITANE) 50 mg capsule 08-22 00:00: 00 Yes [facility] loxapine (LOXITANE) 50 mg capsule 08-22 00:00: 00 Yes [facility] loxapine (LOXITANE) 50 mg capsule 08-22 00:00: 00 Yes [facility] loxapine (LOXITANE) 50 mg capsule 08-22 00:00: 00 Yes [facility] loxapine (LOXITANE) 50 mg capsule 08-22 00:00: 00 Yes [facility] loxapine (LOXITANE) 50 mg capsule 08-22 00:00: 00 Yes [facility] loxapine (LOXITANE) 50 mg capsule 08-22 00:00: 00 Yes [facility] loxapine (LOXITANE) 50 mg capsule 08-22 00:00: 00 Yes [facility] loxapine (LOXITANE) 50 mg capsule 08-22 00:00: 00 Yes [facility] loxapine (LOXITANE) 50 mg capsule 08-22 00:00: 00 Yes [facility] loxapine (LOXITANE) 50 mg capsule 08-22 00:00: 00 Yes [facility] loxapine (LOXITANE) 50 mg capsule 08-22 00:00: 00 Yes [facility] loxapine (LOXITANE) 50 mg capsule 08-22 00:00: 00 Yes [facility] loxapine (LOXITANE) 50 mg capsule 08-22 00:00: 00 Yes [facility] loxapine (LOXITANE) 50 mg capsule 08-22 00:00: 00 Yes [facility] loxapine (LOXITANE) 50 mg capsule 08-22 00:00: 00 Yes [facility] loxapine (LOXITANE) 50 mg capsule 08-22 00:00: 00 Yes [facility] loxapine (LOXITANE) 50 mg capsule 08-22 00:00: 00 Yes [facility] loxapine (LOXITANE) 50 mg capsule 08-22 00:00: 00 Yes [facility] loxapine (LOXITANE) 50 mg capsule 08-22 00:00: 00 Yes [facility] loxapine (LOXITANE) 50 mg capsule 08-22 00:00: 00 Yes [facility] loxapine (LOXITANE) 50 mg capsule 08-22 00:00: 00 Yes [facility] loxapine (LOXITANE) 50 mg capsule 08-22 00:00: 00 Yes [facility] loxapine (LOXITANE) 50 mg capsule 08-22 00:00: 00 Yes [facility] loxapine (LOXITANE) 50 mg capsule 08-22 00:00: 00 Yes [facility] loxapine (LOXITANE) 50 mg capsule 08-22 00:00: 00 Yes [facility] loxapine (LOXITANE) 50 mg capsule 08-22 00:00: 00 Yes [facility] loxapine (LOXITANE) 50 mg capsule 08-22 00:00: 00 Yes [facility] loxapine (LOXITANE) 50 mg capsule 08-22 00:00: 00 Yes [facility] loxapine (LOXITANE) 50 mg capsule 08-22 00:00: 00 Yes [facility] loxapine (LOXITANE) 50 mg capsule 2016-0 1-20 00:00: 00 Yes [facility] Immunizations Ordered Immunization Name Filled Immunization Name Date Status Comments Source Influenza Virus Vaccine Recomb Quad IM, Preserv and ABX Free 18-64 YRS 2022-04-03 00:00:00 Completed [facility] Influenza Virus Vaccine Recomb Quad IM, Preserv and ABX Free 18-64 YRS 2022-04-03 00:00:00 Completed [facility] Influenza Virus Vaccine Recomb Quad IM, Preserv and ABX Free 18-64 YRS 2022-04-03 00:00:00 Completed [facility] Influenza Virus Vaccine Recomb Quad IM, Preserv and ABX Free 18-64 YRS 2022-04-03 00:00:00 Completed [facility] Influenza Virus Vaccine Recomb Quad IM, Preserv and ABX Free -64 YRS 2022-04-03 00:00:00 Completed [facility] Influenza Virus Vaccine Recomb Quad IM, Preserv and ABX Free 18-64 YRS 2022-04-03 00:00:00 Completed [facility] Influenza Virus Vaccine Recomb Quad IM, Preserv and ABX Free -64 2022-04-03 00:00:00 Completed [facility] Influenza Virus Vaccine Recomb Quad IM, Preserv and ABX Free -64 YRS 2022-04-03 00:00:00 Completed [facility] Influenza Virus Vaccine Recomb Quad IM, Preserv and ABX Free -64 2022-04-03 00:00:00 Completed [facility] Influenza Virus Vaccine Recomb Quad IM, Preserv and ABX Free 18-64 YRS 2022-04-03 00:00:00 Completed [facility] Influenza Virus Vaccine Recomb Quad IM, Preserv and ABX Free 18-64 YRS 2022-04-03 00:00:00 Completed [facility] Influenza Virus Vaccine Recomb Quad IM, Preserv and ABX Free -64 YRS 2022-04-03 00:00:00 Completed [facility] Influenza Virus Vaccine Recomb Quad IM, Preserv and ABX Free 18-64 YRS 2022-04-03 00:00:00 Completed [facility] Influenza Virus Vaccine Recomb Quad IM, Preserv and ABX Free 18-64 YRS 2022-04-03 00:00:00 Completed [facility] Influenza Virus Vaccine Recomb Quad IM, Preserv and ABX Free 18-64 YRS 2022-04-03 00:00:00 Completed [facility] Influenza Virus Vaccine Recomb Quad IM, Preserv and ABX Free 18-64 YRS 2022-04-03 00:00:00 Completed [facility] Influenza Virus Vaccine Recomb Quad IM, Preserv and ABX Free 18-64 YRS 2022-04-03 00:00:00 Completed [facility] Influenza Virus Vaccine Recomb Quad IM, Preserv and ABX Free 18-64 YRS 2022-04-03 00:00:00 Completed [facility] Influenza Virus Vaccine Recomb Quad IM, Preserv and ABX Free 18-64 YRS 2022-04-03 00:00:00 Completed [facility] Influenza Virus Vaccine Recomb Quad IM, Preserv and ABX Free 18-64 YRS 2022-04-03 00:00:00 Completed [facility] Influenza Virus Vaccine Recomb Quad IM, Preserv and ABX Free 18-64 YRS 2022-04-03 00:00:00 Completed [facility] Influenza Virus Vaccine Recomb Quad IM, Preserv and ABX Free 18-64 YRS 2022-04-03 00:00:00 Completed [facility] Influenza Virus Vaccine Recomb Quad IM, Preserv and ABX Free 18-64 YRS 2022-04-03 00:00:00 Completed [facility] Influenza Virus Vaccine Recomb Quad IM, Preserv and ABX Free 18-64 YRS 2022-04-03 00:00:00 Completed [facility] Influenza Virus Vaccine Recomb Quad IM, Preserv and ABX Free 18-64 YRS 2022-04-03 00:00:00 Completed [facility] Influenza Virus Vaccine Recomb Quad IM, Preserv and ABX Free 18-64 YRS 2022-04-03 00:00:00 Completed [facility] Influenza Virus Vaccine Recomb Quad IM, Preserv and ABX Free 18-64 YRS 2022-04-03 00:00:00 Completed [facility] Influenza Virus Vaccine Recomb Quad IM, Preserv and ABX Free 18-64 YRS 2022-04-03 00:00:00 Completed [facility] Influenza Virus Vaccine Recomb Quad IM, Preserv and ABX Free 18-64 YRS 2022-04-03 00:00:00 Completed [facility] Influenza Virus Vaccine Recomb Quad IM, Preserv and ABX Free 18-64 YRS 2022-04-03 00:00:00 Completed [facility] Influenza Virus Vaccine Recomb Quad IM, Preserv and ABX Free 18-64 YRS 2022-04-03 00:00:00 Completed [facility] Influenza Virus Vaccine Recomb Quad IM, Preserv and ABX Free 18-64 YRS 2022-04-03 00:00:00 Completed [facility] Influenza Virus Vaccine Recomb Quad IM, Preserv and ABX Free 18-64 YRS 2022-04-03 00:00:00 Completed [facility] Influenza Virus Vaccine Recomb Quad IM, Preserv and ABX Free 18-64 YRS 2022-04-03 00:00:00 Completed [facility] Influenza Virus Vaccine Recomb Quad IM, Preserv and ABX Free 18-64 YRS 2022-04-03 00:00:00 Completed [facility] Influenza Virus Vaccine Recomb Quad IM, Preserv and ABX Free 18-64 YRS 2022-04-03 00:00:00 Completed [facility] Influenza Virus Vaccine Recomb Quad IM, Preserv and ABX Free 18-64 YRS 2022-04-03 00:00:00 Completed [facility] Influenza Virus Vaccine Recomb Quad IM, Preserv and ABX Free 18-64 YRS 2022-04-03 00:00:00 Completed [facility] Influenza Virus Vaccine Recomb Quad IM, Preserv and ABX Free 18-64 YRS 2022-04-03 00:00:00 Completed [facility] Influenza Virus Vaccine Recomb Quad IM, Preserv and ABX Free 18-64 YRS 2022-04-03 00:00:00 Completed [facility] Influenza Virus Vaccine Recomb Quad IM, Preserv and ABX Free 18-64 YRS 2022-04-03 00:00:00 Completed [facility] Influenza Virus Vaccine Recomb Quad IM, Preserv and ABX Free 18-64 YRS 2022-04-03 00:00:00 Completed [facility] Influenza Virus Vaccine Recomb Quad IM, Preserv and ABX Free 18-64 YRS 2022-04-03 00:00:00 Completed [facility] Influenza Virus Vaccine Recomb Quad IM, Preserv and ABX Free 18-64 YRS 2022-04-03 00:00:00 Completed [facility] Influenza Virus Vaccine Recomb Quad IM, Preserv and ABX Free 18-64 YRS 2022-04-03 00:00:00 Completed [facility] Influenza Virus Vaccine Recomb Quad IM, Preserv and ABX Free 18-64 YRS 2022-04-03 00:00:00 Completed [facility] Influenza Virus Vaccine Recomb Quad IM, Preserv and ABX Free 18-64 YRS 2022-04-03 00:00:00 Completed [facility] Influenza Virus Vaccine Recomb Quad IM, Preserv and ABX Free 18-64 YRS 2022-04-03 00:00:00 Completed [facility] Influenza Virus Vaccine Recomb Quad IM, Preserv and ABX Free 18-64 YRS 2022-04-03 00:00:00 Completed [facility] Influenza Virus Vaccine Recomb Quad IM, Preserv and ABX Free 18-64 YRS 2022-04-03 00:00:00 Completed [facility] Influenza Virus Vaccine Recomb Quad IM, Preserv and ABX Free 18-64 YRS 2022-04-03 00:00:00 Completed [facility] Influenza Virus Vaccine Recomb Quad IM, Preserv and ABX Free 18-64 YRS 2022-04-03 00:00:00 Completed [facility] Influenza Virus Vaccine Recomb Quad IM, Preserv and ABX Free -64 YRS 2022-04-03 00:00:00 Completed [facility] Influenza Virus Vaccine Recomb Quad IM, Preserv and ABX Free 18-64 YRS 2022-04-03 00:00:00 Completed [facility] Influenza Virus Vaccine Recomb Quad IM, Preserv and ABX Free 18-64 YRS 2022-04-03 00:00:00 Completed [facility] Influenza Virus Vaccine Recomb Quad IM, Preserv and ABX Free 18-64 YRS 2022-04-03 00:00:00 Completed [facility] Influenza Virus Vaccine Recomb Quad IM, Preserv and ABX Free 18-64 YRS 2022-04-03 00:00:00 Completed [facility] Influenza Virus Vaccine Recomb Quad IM, Preserv and ABX Free 18-64 YRS 2022-04-03 00:00:00 Completed [facility] Influenza Virus Vaccine Recomb Quad IM, Preserv and ABX Free 18-64 YRS 2022-04-03 00:00:00 Completed [facility] Influenza Virus Vaccine Recomb Quad IM, Preserv and ABX Free 18-64 YRS 2022-04-03 00:00:00 Completed [facility] Influenza Virus Vaccine Recomb Quad IM, Preserv and ABX Free 18-64 YRS 2022-04-03 00:00:00 Completed [facility] Influenza Virus Vaccine Recomb Quad IM, Preserv and ABX Free 18-64 YRS 2022-04-03 00:00:00 Completed [facility] Influenza Virus Vaccine Recomb Quad IM, Preserv and ABX Free 18-64 YRS 2022-04-03 00:00:00 Completed [facility] Influenza Virus Vaccine Recomb Quad IM, Preserv and ABX Free -64 YRS 2022-04-03 00:00:00 Completed [facility] Influenza Virus Vaccine Recomb Quad IM, Preserv and ABX Free 18-64 YRS 2022-04-03 00:00:00 Completed [facility] Influenza Virus Vaccine Recomb Quad IM, Preserv and ABX Free 18-64 YRS 2022-04-03 00:00:00 Completed [facility] Influenza Virus Vaccine Recomb Quad IM, Preserv and ABX Free 18-64 YRS 2022-04-03 00:00:00 Completed [facility] Influenza Virus Vaccine Recomb Quad IM, Preserv and ABX Free 18-64 YRS 2022-04-03 00:00:00 Completed [facility] Influenza Virus Vaccine Recomb Quad IM, Preserv and ABX Free 18-64 YRS 2022-04-03 00:00:00 Completed [facility] Influenza Virus Vaccine Recomb Quad IM, Preserv and ABX Free 18-64 YRS 2022-04-03 00:00:00 Completed [facility] Influenza Virus Vaccine Recomb Quad IM, Preserv and ABX Free 18-64 YRS 2022-04-03 00:00:00 Completed [facility] Influenza Virus Vaccine Recomb Quad IM, Preserv and ABX Free 18-64 YRS 2022-04-03 00:00:00 Completed [facility] Influenza Virus Vaccine Recomb Quad IM, Preserv and ABX Free 18-64 YRS 2022-04-03 00:00:00 Completed [facility] Influenza Virus Vaccine Recomb Quad IM, Preserv and ABX Free 18-64 YRS 2022-04-03 00:00:00 Completed [facility] Influenza Virus Vaccine Recomb Quad IM, Preserv and ABX Free 18-64 YRS 2022-04-03 00:00:00 Completed [facility] Influenza Virus Vaccine Recomb Quad IM, Preserv and ABX Free 18-64 YRS 2022-04-03 00:00:00 Completed [facility] Influenza Virus Vaccine Recomb Quad IM, Preserv and ABX Free 18-64 YRS 2022-04-03 00:00:00 Completed [facility] Influenza Virus Vaccine Recomb Quad IM, Preserv and ABX Free 18-64 YRS 2022-04-03 00:00:00 Completed [facility] Influenza Virus Vaccine Recomb Quad IM, Preserv and ABX Free 18-64 YRS 2022-04-03 00:00:00 Completed [facility] Influenza Virus Vaccine Recomb Quad IM, Preserv and ABX Free 18-64 YRS 2022-04-03 00:00:00 Completed [facility] Influenza Virus Vaccine Recomb Quad IM, Preserv and ABX Free 18-64 YRS 2022-04-03 00:00:00 Completed [facility] Influenza Virus Vaccine Recomb Quad IM, Preserv and ABX Free -64 YRS 2022-04-03 00:00:00 Completed [facility] Influenza Virus Vaccine Recomb Quad IM, Preserv and ABX Free -64 YRS 2022-04-03 00:00:00 Completed [facility] Influenza Virus Vaccine Recomb Quad IM, Preserv and ABX Free 18-64 YRS 2022-04-03 00:00:00 Completed [facility] Influenza Virus Vaccine Recomb Quad IM, Preserv and ABX Free 18-64 YRS 2022-04-03 00:00:00 Completed [facility] Influenza Virus Vaccine Recomb Quad IM, Preserv and ABX Free 18-64 YRS 2022-04-03 00:00:00 Completed [facility] Influenza Virus Vaccine Recomb Quad IM, Preserv and ABX Free 18-64 YRS 2022-04-03 00:00:00 Completed [facility] Influenza Virus Vaccine Recomb Quad IM, Preserv and ABX Free 18-64 YRS 2022-04-03 00:00:00 Completed [facility] Influenza Virus Vaccine Recomb Quad IM, Preserv and ABX Free 18-64 YRS 2022-04-03 00:00:00 Completed [facility] Influenza Virus Vaccine Recomb Quad IM, Preserv and ABX Free 18-64 YRS 2022-04-03 00:00:00 Completed [facility] Influenza Virus Vaccine Recomb Quad IM, Preserv and ABX Free 18-64 YRS 2022-04-03 00:00:00 Completed [facility] Influenza Virus Vaccine Recomb Quad IM, Preserv and ABX Free 18-64 YRS 2022-04-03 00:00:00 Completed [facility] Influenza Virus Vaccine Recomb Quad IM, Preserv and ABX Free 18-64 YRS 2022-04-03 00:00:00 Completed [facility] Influenza Virus Vaccine Recomb Quad IM, Preserv and ABX Free 18-64 YRS 2022-04-03 00:00:00 Completed [facility] Influenza Virus Vaccine Recomb Quad IM, Preserv and ABX Free 18-64 YRS 2022-04-03 00:00:00 Completed [facility] Influenza Virus Vaccine Recomb Quad IM, Preserv and ABX Free 18-64 YRS 2022-04-03 00:00:00 Completed [facility] Influenza Virus Vaccine Recomb Quad IM, Preserv and ABX Free -64 YRS 2022-04-03 00:00:00 Completed [facility] Influenza Virus Vaccine Recomb Quad IM, Preserv and ABX Free 18-64 YRS 2022-04-03 00:00:00 Completed [facility] Influenza Virus Vaccine Recomb Quad IM, Preserv and ABX Free 18-64 YRS 2022-04-03 00:00:00 Completed [facility] Influenza Virus Vaccine Recomb Quad IM, Preserv and ABX Free 18-64 YRS 2022-04-03 00:00:00 Completed [facility] Influenza Virus Vaccine Recomb Quad IM, Preserv and ABX Free -64 YRS 2022-04-03 00:00:00 Completed [facility] Influenza Virus Vaccine Recomb Quad IM, Preserv and ABX Free 18-64 YRS 2022-04-03 00:00:00 Completed [facility] Influenza Virus Vaccine Recomb Quad IM, Preserv and ABX Free -64 YRS 2022-04-03 00:00:00 Completed [facility] Influenza Virus Vaccine Recomb Quad IM, Preserv and ABX Free 18-64 YRS 2022-04-03 00:00:00 Completed [facility] Influenza Virus Vaccine Recomb Quad IM, Preserv and ABX Free 18-64 YRS 2022-04-03 00:00:00 Completed [facility] Influenza Virus Vaccine Recomb Quad IM, Preserv and ABX Free 18-64 YRS 2022-04-03 00:00:00 Completed [facility] Influenza Virus Vaccine Recomb Quad IM, Preserv and ABX Free 18-64 YRS 2022-04-03 00:00:00 Completed [facility] Influenza Virus Vaccine Recomb Quad IM, Preserv and ABX Free 18-64 YRS 2022-04-03 00:00:00 Completed [facility] Influenza Virus Vaccine Recomb Quad IM, Preserv and ABX Free 18-64 YRS 2022-04-03 00:00:00 Completed [facility] Influenza Virus Vaccine Recomb Quad IM, Preserv and ABX Free 18-64 YRS 2022-04-03 00:00:00 Completed [facility] Influenza Virus Vaccine Recomb Quad IM, Preserv and ABX Free 18-64 YRS 2022-04-03 00:00:00 Completed [facility] Influenza Virus Vaccine Recomb Quad IM, Preserv and ABX Free 18-64 YRS 2022-04-03 00:00:00 Completed [facility] Influenza Virus Vaccine Recomb Quad IM, Preserv and ABX Free 18-64 YRS 2022-04-03 00:00:00 Completed [facility] Influenza Virus Vaccine Recomb Quad IM, Preserv and ABX Free 18-64 YRS 2022-04-03 00:00:00 Completed [facility] Influenza Virus Vaccine Recomb Quad IM, Preserv and ABX Free 18-64 YRS 2022-04-03 00:00:00 Completed [facility] Influenza Virus Vaccine Recomb Quad IM, Preserv and ABX Free 18-64 YRS 2022-04-03 00:00:00 Completed [facility] Influenza Virus Vaccine Recomb Quad IM, Preserv and ABX Free 18-64 YRS 2022-04-03 00:00:00 Completed [facility] Influenza Virus Vaccine Recomb Quad IM, Preserv and ABX Free 18-64 YRS 2022-04-03 00:00:00 Completed [facility] Influenza Virus Vaccine Recomb Quad IM, Preserv and ABX Free 18-64 YRS 2022-04-03 00:00:00 Completed [facility] Influenza Virus Vaccine Recomb Quad IM, Preserv and ABX Free 18-64 YRS 2022-04-03 00:00:00 Completed [facility] Influenza Virus Vaccine Recomb Quad IM, Preserv and ABX Free 18-64 YRS 2022-04-03 00:00:00 Completed [facility] Influenza Virus Vaccine Recomb Quad IM, Preserv and ABX Free 18-64 YRS 2022-04-03 00:00:00 Completed [facility] Influenza Virus Vaccine Recomb Quad IM, Preserv and ABX Free 18-64 YRS 2022-04-03 00:00:00 Completed [facility] Influenza Virus Vaccine Recomb Quad IM, Preserv and ABX Free 18-64 YRS 2022-04-03 00:00:00 Completed [facility] Influenza Virus Vaccine Recomb Quad IM, Preserv and ABX Free 18-64 YRS 2022-04-03 00:00:00 Completed [facility] Influenza Virus Vaccine Recomb Quad IM, Preserv and ABX Free 18-64 YRS 2022-04-03 00:00:00 Completed [facility] Influenza Virus Vaccine Recomb Quad IM, Preserv and ABX Free 18-64 YRS 2022-04-03 00:00:00 Completed [facility] Influenza Virus Vaccine Recomb Quad IM, Preserv and ABX Free 18-64 YRS 2022-04-03 00:00:00 Completed [facility] Influenza Virus Vaccine Recomb Quad IM, Preserv and ABX Free 18-64 YRS 2022-04-03 00:00:00 Completed [facility] Influenza Virus Vaccine Recomb Quad IM, Preserv and ABX Free 18-64 YRS 2022-04-03 00:00:00 Completed [facility] Influenza Virus Vaccine Recomb Quad IM, Preserv and ABX Free 18-64 YRS 2022-04-03 00:00:00 Completed [facility] Influenza Virus Vaccine Recomb Quad IM, Preserv and ABX Free 18-64 YRS 2022-04-03 00:00:00 Completed [facility] Influenza Virus Vaccine Recomb Quad IM, Preserv and ABX Free 18-64 YRS 2022-04-03 00:00:00 Completed [facility] Influenza Virus Vaccine Recomb Quad IM, Preserv and ABX Free 18-64 YRS 2022-04-03 00:00:00 Completed [facility] Influenza Virus Vaccine Recomb Quad IM, Preserv and ABX Free 18-64 YRS 2022-04-03 00:00:00 Completed [facility] Influenza Virus Vaccine Recomb Quad IM, Preserv and ABX Free 18-64 YRS 2022-04-03 00:00:00 Completed [facility] Influenza Virus Vaccine Recomb Quad IM, Preserv and ABX Free 18-64 YRS 2022-04-03 00:00:00 Completed [facility] Influenza Virus Vaccine Recomb Quad IM, Preserv and ABX Free 18-64 YRS 2022-04-03 00:00:00 Completed [facility] Influenza Virus Vaccine Recomb Quad IM, Preserv and ABX Free 18-64 YRS 2022-04-03 00:00:00 Completed [facility] Influenza Virus Vaccine Recomb Quad IM, Preserv and ABX Free 18-64 YRS 2022-04-03 00:00:00 Completed [facility] Influenza Virus Vaccine Recomb Quad IM, Preserv and ABX Free 18-64 YRS 2022-04-03 00:00:00 Completed [facility] Influenza Virus Vaccine Recomb Quad IM, Preserv and ABX Free 18-64 YRS 2022-04-03 00:00:00 Completed [facility] Influenza Virus Vaccine Recomb Quad IM, Preserv and ABX Free 18-64 YRS 2022-04-03 00:00:00 Completed [facility] Influenza Virus Vaccine Recomb Quad IM, Preserv and ABX Free 18-64 YRS 2022-04-03 00:00:00 Completed [facility] Influenza Virus Vaccine Recomb Quad IM, Preserv and ABX Free 18-64 YRS 2022-04-03 00:00:00 Completed [facility] Influenza Virus Vaccine Recomb Quad IM, Preserv and ABX Free 18-64 YRS 2022-04-03 00:00:00 Completed [facility] Influenza Virus Vaccine Recomb Quad IM, Preserv and ABX Free 18-64 YRS 2022-04-03 00:00:00 Completed [facility] Influenza Virus Vaccine Recomb Quad IM, Preserv and ABX Free 18-64 YRS 2022-04-03 00:00:00 Completed [facility] Influenza Virus Vaccine Recomb Quad IM, Preserv and ABX Free 18-64 YRS 2022-04-03 00:00:00 Completed [facility] Influenza Virus Vaccine Recomb Quad IM, Preserv and ABX Free 18-64 YRS 2022-04-03 00:00:00 Completed [facility] Influenza Virus Vaccine Recomb Quad IM, Preserv and ABX Free 18-64 YRS 2022-04-03 00:00:00 Completed [facility] Influenza Virus Vaccine Recomb Quad IM, Preserv and ABX Free 18-64 YRS 2022-04-03 00:00:00 Completed [facility] Influenza Virus Vaccine Recomb Quad IM, Preserv and ABX Free 18-64 YRS 2022-04-03 00:00:00 Completed [facility] Influenza Virus Vaccine Recomb Quad IM, Preserv and ABX Free 18-64 YRS 2022-04-03 00:00:00 Completed [facility] Influenza Virus Vaccine Recomb Quad IM, Preserv and ABX Free 18-64 YRS 2022-04-03 00:00:00 Completed [facility] Influenza Virus Vaccine Recomb Quad IM, Preserv and ABX Free -64 YRS 2022-04-03 00:00:00 Completed [facility] Influenza Virus Vaccine Recomb Quad IM, Preserv and ABX Free 18-64 YRS 2022-04-03 00:00:00 Completed [facility] Influenza Virus Vaccine Recomb Quad IM, Preserv and ABX Free 18-64 YRS 2022-04-03 00:00:00 Completed [facility] Influenza Virus Vaccine Recomb Quad IM, Preserv and ABX Free 18-64 YRS 2022-04-03 00:00:00 Completed [facility] Influenza Virus Vaccine Recomb Quad IM, Preserv and ABX Free 18-64 YRS 2022-04-03 00:00:00 Completed [facility] Influenza Virus Vaccine Recomb Quad IM, Preserv and ABX Free 18-64 YRS 2022-04-03 00:00:00 Completed [facility] Influenza Virus Vaccine Recomb Quad IM, Preserv and ABX Free 18-64 YRS 2022-04-03 00:00:00 Completed [facility] Influenza Virus Vaccine Recomb Quad IM, Preserv and ABX Free 18-64 YRS 2022-04-03 00:00:00 Completed [facility] Influenza Virus Vaccine Recomb Quad IM, Preserv and ABX Free 18-64 YRS 2022-04-03 00:00:00 Completed [facility] Influenza Virus Vaccine Recomb Quad IM, Preserv and ABX Free 18-64 YRS 2022-04-03 00:00:00 Completed [facility] Influenza Virus Vaccine Recomb Quad IM, Preserv and ABX Free 18-64 YRS 2022-04-03 00:00:00 Completed [facility] Influenza Virus Vaccine Recomb Quad IM, Preserv and ABX Free 18-64 YRS 2022-04-03 00:00:00 Completed [facility] Influenza Virus Vaccine Recomb Quad IM, Preserv and ABX Free 18-64 YRS 2022-04-03 00:00:00 Completed [facility] Influenza Virus Vaccine Recomb Quad IM, Preserv and ABX Free 18-64 YRS 2022-04-03 00:00:00 Completed [facility] Influenza Virus Vaccine Recomb Quad IM, Preserv and ABX Free -64 YRS 2022-04-03 00:00:00 Completed [facility] Influenza Virus Vaccine Recomb Quad IM, Preserv and ABX Free 18-64 YRS 2022-04-03 00:00:00 Completed [facility] Influenza Virus Vaccine Recomb Quad IM, Preserv and ABX Free 18-64 YRS 2022-04-03 00:00:00 Completed [facility] Influenza Virus Vaccine Recomb Quad IM, Preserv and ABX Free 18-64 YRS 2022-04-03 00:00:00 Completed [facility] Influenza Virus Vaccine Recomb Quad IM, Preserv and ABX Free 18-64 YRS 2022-04-03 00:00:00 Completed [facility] Influenza Virus Vaccine Recomb Quad IM, Preserv and ABX Free 18-64 YRS 2022-04-03 00:00:00 Completed [facility] SARS-COV-2 COVID-19 MODERNA 0.25ML BOOSTER VACCINE 2021-06-04 00:00:00 Completed [facility] SARS-COV-2 COVID-19 MODERNA 0.25ML BOOSTER VACCINE 2021-06-04 00:00:00 Completed [facility] SARS-COV-2 COVID-19 MODERNA 0.25ML BOOSTER VACCINE 2021-06-04 00:00:00 Completed [facility] SARS-COV-2 COVID-19 MODERNA 0.25ML BOOSTER VACCINE 2021-06-04 00:00:00 Completed [facility] SARS-COV-2 COVID-19 MODERNA 0.25ML BOOSTER VACCINE 2021-06-04 00:00:00 Completed [facility] SARS-COV-2 COVID-19 MODERNA 0.25ML BOOSTER VACCINE 2021-06-04 00:00:00 Completed [facility] SARS-COV-2 COVID-19 MODERNA 0.25ML BOOSTER VACCINE 2021-06-04 00:00:00 Completed [facility] SARS-COV-2 COVID-19 MODERNA 0.25ML BOOSTER VACCINE 2021-06-04 00:00:00 Completed [facility] SARS-COV-2 COVID-19 MODERNA 0.25ML BOOSTER VACCINE 2021-06-04 00:00:00 Completed [facility] SARS-COV-2 COVID-19 MODERNA 0.25ML BOOSTER VACCINE 2021-06-04 00:00:00 Completed [facility] SARS-COV-2 COVID-19 MODERNA 0.25ML BOOSTER VACCINE 2021-06-04 00:00:00 Completed [facility] SARS-COV-2 COVID-19 MODERNA 0.25ML BOOSTER VACCINE 2021-06-04 00:00:00 Completed [facility] SARS-COV-2 COVID-19 MODERNA 0.25ML BOOSTER VACCINE 2021-06-04 00:00:00 Completed [facility] SARS-COV-2 COVID-19 MODERNA 0.25ML BOOSTER VACCINE 2021-06-04 00:00:00 Completed [facility] SARS-COV-2 COVID-19 MODERNA 0.25ML BOOSTER VACCINE 2021-06-04 00:00:00 Completed [facility] SARS-COV-2 COVID-19 MODERNA 0.25ML BOOSTER VACCINE 2021-06-04 00:00:00 Completed [facility] SARS-COV-2 COVID-19 MODERNA 0.25ML BOOSTER VACCINE 2021-06-04 00:00:00 Completed [facility] SARS-COV-2 COVID-19 MODERNA 0.25ML BOOSTER VACCINE 2021-06-04 00:00:00 Completed [facility] SARS-COV-2 COVID-19 MODERNA 0.25ML BOOSTER VACCINE 2021-06-04 00:00:00 Completed [facility] SARS-COV-2 COVID-19 MODERNA 0.25ML BOOSTER VACCINE 2021-06-04 00:00:00 Completed [facility] SARS-COV-2 COVID-19 MODERNA 0.25ML BOOSTER VACCINE 2021-06-04 00:00:00 Completed [facility] SARS-COV-2 COVID-19 MODERNA 0.25ML BOOSTER VACCINE 2021-06-04 00:00:00 Completed [facility] SARS-COV-2 COVID-19 MODERNA 0.25ML BOOSTER VACCINE 2021-06-04 00:00:00 Completed [facility] SARS-COV-2 COVID-19 MODERNA 0.25ML BOOSTER VACCINE 2021-06-04 00:00:00 Completed [facility] SARS-COV-2 COVID-19 MODERNA 0.25ML BOOSTER VACCINE 2021-06-04 00:00:00 Completed [facility] SARS-COV-2 COVID-19 MODERNA 0.25ML BOOSTER VACCINE 2021-06-04 00:00:00 Completed [facility] SARS-COV-2 COVID-19 MODERNA 0.25ML BOOSTER VACCINE 2021-06-04 00:00:00 Completed [facility] SARS-COV-2 COVID-19 MODERNA 0.25ML BOOSTER VACCINE 2021-06-04 00:00:00 Completed [facility] SARS-COV-2 COVID-19 MODERNA 0.25ML BOOSTER VACCINE 2021-06-04 00:00:00 Completed [facility] SARS-COV-2 COVID-19 MODERNA 0.25ML BOOSTER VACCINE 2021-06-04 00:00:00 Completed [facility] SARS-COV-2 COVID-19 MODERNA 0.25ML BOOSTER VACCINE 2021-06-04 00:00:00 Completed [facility] SARS-COV-2 COVID-19 MODERNA 0.25ML BOOSTER VACCINE 2021-06-04 00:00:00 Completed [facility] SARS-COV-2 COVID-19 MODERNA 0.25ML BOOSTER VACCINE 2021-06-04 00:00:00 Completed [facility] SARS-COV-2 COVID-19 MODERNA 0.25ML BOOSTER VACCINE 2021-06-04 00:00:00 Completed [facility] SARS-COV-2 COVID-19 MODERNA 0.25ML BOOSTER VACCINE 2021-06-04 00:00:00 Completed [facility] SARS-COV-2 COVID-19 MODERNA 0.25ML BOOSTER VACCINE 2021-06-04 00:00:00 Completed [facility] SARS-COV-2 COVID-19 MODERNA 0.25ML BOOSTER VACCINE 2021-06-04 00:00:00 Completed [facility] SARS-COV-2 COVID-19 MODERNA 0.25ML BOOSTER VACCINE 2021-06-04 00:00:00 Completed [facility] SARS-COV-2 COVID-19 MODERNA 0.25ML BOOSTER VACCINE 2021-06-04 00:00:00 Completed [facility] SARS-COV-2 COVID-19 MODERNA 0.25ML BOOSTER VACCINE 2021-06-04 00:00:00 Completed [facility] SARS-COV-2 COVID-19 MODERNA 0.25ML BOOSTER VACCINE 2021-06-04 00:00:00 Completed [facility] SARS-COV-2 COVID-19 MODERNA 0.25ML BOOSTER VACCINE 2021-06-04 00:00:00 Completed [facility] SARS-COV-2 COVID-19 MODERNA 0.25ML BOOSTER VACCINE 2021-06-04 00:00:00 Completed [facility] SARS-COV-2 COVID-19 MODERNA 0.25ML BOOSTER VACCINE 2021-06-04 00:00:00 Completed [facility] SARS-COV-2 COVID-19 MODERNA 0.25ML BOOSTER VACCINE 2021-06-04 00:00:00 Completed [facility] SARS-COV-2 COVID-19 MODERNA 0.25ML BOOSTER VACCINE 2021-06-04 00:00:00 Completed [facility] SARS-COV-2 COVID-19 MODERNA 0.25ML BOOSTER VACCINE 2021-06-04 00:00:00 Completed [facility] SARS-COV-2 COVID-19 MODERNA 0.25ML BOOSTER VACCINE 2021-06-04 00:00:00 Completed [facility] SARS-COV-2 COVID-19 MODERNA 0.25ML BOOSTER VACCINE 2021-06-04 00:00:00 Completed [facility] SARS-COV-2 COVID-19 MODERNA 0.25ML BOOSTER VACCINE 2021-06-04 00:00:00 Completed [facility] SARS-COV-2 COVID-19 MODERNA 0.25ML BOOSTER VACCINE 2021-06-04 00:00:00 Completed [facility] SARS-COV-2 COVID-19 MODERNA 0.25ML BOOSTER VACCINE 2021-06-04 00:00:00 Completed [facility] SARS-COV-2 COVID-19 MODERNA 0.25ML BOOSTER VACCINE 2021-06-04 00:00:00 Completed [facility] SARS-COV-2 COVID-19 MODERNA 0.25ML BOOSTER VACCINE 2021-06-04 00:00:00 Completed [facility] SARS-COV-2 COVID-19 MODERNA 0.25ML BOOSTER VACCINE 2021-06-04 00:00:00 Completed [facility] SARS-COV-2 COVID-19 MODERNA 0.25ML BOOSTER VACCINE 2021-06-04 00:00:00 Completed [facility] SARS-COV-2 COVID-19 MODERNA 0.25ML BOOSTER VACCINE 2021-06-04 00:00:00 Completed [facility] SARS-COV-2 COVID-19 MODERNA 0.25ML BOOSTER VACCINE 2021-06-04 00:00:00 Completed [facility] SARS-COV-2 COVID-19 MODERNA 0.25ML BOOSTER VACCINE 2021-06-04 00:00:00 Completed [facility] SARS-COV-2 COVID-19 MODERNA 0.25ML BOOSTER VACCINE 2021-06-04 00:00:00 Completed [facility] SARS-COV-2 COVID-19 MODERNA 0.25ML BOOSTER VACCINE 2021-06-04 00:00:00 Completed [facility] SARS-COV-2 COVID-19 MODERNA 0.25ML BOOSTER VACCINE 2021-06-04 00:00:00 Completed [facility] SARS-COV-2 COVID-19 MODERNA 0.25ML BOOSTER VACCINE 2021-06-04 00:00:00 Completed [facility] SARS-COV-2 COVID-19 MODERNA 0.25ML BOOSTER VACCINE 2021-06-04 00:00:00 Completed [facility] SARS-COV-2 COVID-19 MODERNA 0.25ML BOOSTER VACCINE 2021-06-04 00:00:00 Completed [facility] SARS-COV-2 COVID-19 MODERNA 0.25ML BOOSTER VACCINE 2021-06-04 00:00:00 Completed [facility] SARS-COV-2 COVID-19 MODERNA 0.25ML BOOSTER VACCINE 2021-06-04 00:00:00 Completed [facility] SARS-COV-2 COVID-19 MODERNA 0.25ML BOOSTER VACCINE 2021-06-04 00:00:00 Completed [facility] SARS-COV-2 COVID-19 MODERNA 0.25ML BOOSTER VACCINE 2021-06-04 00:00:00 Completed [facility] SARS-COV-2 COVID-19 MODERNA 0.25ML BOOSTER VACCINE 2021-06-04 00:00:00 Completed [facility] SARS-COV-2 COVID-19 MODERNA 0.25ML BOOSTER VACCINE 2021-06-04 00:00:00 Completed [facility] SARS-COV-2 COVID-19 MODERNA 0.25ML BOOSTER VACCINE 2021-06-04 00:00:00 Completed [facility] SARS-COV-2 COVID-19 MODERNA 0.25ML BOOSTER VACCINE 2021-06-04 00:00:00 Completed [facility] SARS-COV-2 COVID-19 MODERNA 0.25ML BOOSTER VACCINE 2021-06-04 00:00:00 Completed [facility] SARS-COV-2 COVID-19 MODERNA 0.25ML BOOSTER VACCINE 2021-06-04 00:00:00 Completed [facility] SARS-COV-2 COVID-19 MODERNA 0.25ML BOOSTER VACCINE 2021-06-04 00:00:00 Completed [facility] SARS-COV-2 COVID-19 MODERNA 0.25ML BOOSTER VACCINE 2021-06-04 00:00:00 Completed [facility] SARS-COV-2 COVID-19 MODERNA 0.25ML BOOSTER VACCINE 2021-06-04 00:00:00 Completed [facility] SARS-COV-2 COVID-19 MODERNA 0.25ML BOOSTER VACCINE 2021-06-04 00:00:00 Completed [facility] SARS-COV-2 COVID-19 MODERNA 0.25ML BOOSTER VACCINE 2021-06-04 00:00:00 Completed [facility] SARS-COV-2 COVID-19 MODERNA 0.25ML BOOSTER VACCINE 2021-06-04 00:00:00 Completed [facility] SARS-COV-2 COVID-19 MODERNA 0.25ML BOOSTER VACCINE 2021-06-04 00:00:00 Completed [facility] SARS-COV-2 COVID-19 MODERNA 0.25ML BOOSTER VACCINE 2021-06-04 00:00:00 Completed [facility] SARS-COV-2 COVID-19 MODERNA 0.25ML BOOSTER VACCINE 2021-06-04 00:00:00 Completed [facility] SARS-COV-2 COVID-19 MODERNA 0.25ML BOOSTER VACCINE 2021-06-04 00:00:00 Completed [facility] SARS-COV-2 COVID-19 MODERNA 0.25ML BOOSTER VACCINE 2021-06-04 00:00:00 Completed [facility] SARS-COV-2 COVID-19 MODERNA 0.25ML BOOSTER VACCINE 2021-06-04 00:00:00 Completed [facility] SARS-COV-2 COVID-19 MODERNA 0.25ML BOOSTER VACCINE 2021-06-04 00:00:00 Completed [facility] SARS-COV-2 COVID-19 MODERNA 0.25ML BOOSTER VACCINE 2021-06-04 00:00:00 Completed [facility] SARS-COV-2 COVID-19 MODERNA 0.25ML BOOSTER VACCINE 2021-06-04 00:00:00 Completed [facility] SARS-COV-2 COVID-19 MODERNA 0.25ML BOOSTER VACCINE 2021-06-04 00:00:00 Completed [facility] SARS-COV-2 COVID-19 MODERNA 0.25ML BOOSTER VACCINE 2021-06-04 00:00:00 Completed [facility] SARS-COV-2 COVID-19 MODERNA 0.25ML BOOSTER VACCINE 2021-06-04 00:00:00 Completed [facility] SARS-COV-2 COVID-19 MODERNA 0.25ML BOOSTER VACCINE 2021-06-04 00:00:00 Completed [facility] SARS-COV-2 COVID-19 MODERNA 0.25ML BOOSTER VACCINE 2021-06-04 00:00:00 Completed [facility] SARS-COV-2 COVID-19 MODERNA 0.25ML BOOSTER VACCINE 2021-06-04 00:00:00 Completed [facility] SARS-COV-2 COVID-19 MODERNA 0.25ML BOOSTER VACCINE 2021-06-04 00:00:00 Completed [facility] SARS-COV-2 COVID-19 MODERNA 0.25ML BOOSTER VACCINE 2021-06-04 00:00:00 Completed [facility] SARS-COV-2 COVID-19 MODERNA 0.25ML BOOSTER VACCINE 2021-06-04 00:00:00 Completed [facility] SARS-COV-2 COVID-19 MODERNA 0.25ML BOOSTER VACCINE 2021-06-04 00:00:00 Completed [facility] SARS-COV-2 COVID-19 MODERNA 0.25ML BOOSTER VACCINE 2021-06-04 00:00:00 Completed [facility] SARS-COV-2 COVID-19 MODERNA 0.25ML BOOSTER VACCINE 2021-06-04 00:00:00 Completed [facility] SARS-COV-2 COVID-19 MODERNA 0.25ML BOOSTER VACCINE 2021-06-04 00:00:00 Completed [facility] SARS-COV-2 COVID-19 MODERNA 0.25ML BOOSTER VACCINE 2021-06-04 00:00:00 Completed [facility] SARS-COV-2 COVID-19 MODERNA 0.25ML BOOSTER VACCINE 2021-06-04 00:00:00 Completed [facility] SARS-COV-2 COVID-19 MODERNA 0.25ML BOOSTER VACCINE 2021-06-04 00:00:00 Completed [facility] SARS-COV-2 COVID-19 MODERNA 0.25ML BOOSTER VACCINE 2021-06-04 00:00:00 Completed [facility] SARS-COV-2 COVID-19 MODERNA 0.25ML BOOSTER VACCINE 2021-06-04 00:00:00 Completed [facility] SARS-COV-2 COVID-19 MODERNA 0.25ML BOOSTER VACCINE 2021-06-04 00:00:00 Completed [facility] SARS-COV-2 COVID-19 MODERNA 0.25ML BOOSTER VACCINE 2021-06-04 00:00:00 Completed [facility] SARS-COV-2 COVID-19 MODERNA 0.25ML BOOSTER VACCINE 2021-06-04 00:00:00 Completed [facility] SARS-COV-2 COVID-19 MODERNA 0.25ML BOOSTER VACCINE 2021-06-04 00:00:00 Completed [facility] SARS-COV-2 COVID-19 MODERNA 0.25ML BOOSTER VACCINE 2021-06-04 00:00:00 Completed [facility] SARS-COV-2 COVID-19 MODERNA 0.25ML BOOSTER VACCINE 2021-06-04 00:00:00 Completed [facility] SARS-COV-2 COVID-19 MODERNA 0.25ML BOOSTER VACCINE 2021-06-04 00:00:00 Completed [facility] SARS-COV-2 COVID-19 MODERNA 0.25ML BOOSTER VACCINE 2021-06-04 00:00:00 Completed [facility] SARS-COV-2 COVID-19 MODERNA 0.25ML BOOSTER VACCINE 2021-06-04 00:00:00 Completed [facility] SARS-COV-2 COVID-19 MODERNA 0.25ML BOOSTER VACCINE 2021-06-04 00:00:00 Completed [facility] SARS-COV-2 COVID-19 MODERNA 0.25ML BOOSTER VACCINE 2021-06-04 00:00:00 Completed [facility] SARS-COV-2 COVID-19 MODERNA 0.25ML BOOSTER VACCINE 2021-06-04 00:00:00 Completed [facility] SARS-COV-2 COVID-19 MODERNA 0.25ML BOOSTER VACCINE 2021-06-04 00:00:00 Completed [facility] SARS-COV-2 COVID-19 MODERNA 0.25ML BOOSTER VACCINE 2021-06-04 00:00:00 Completed [facility] SARS-COV-2 COVID-19 MODERNA 0.25ML BOOSTER VACCINE 2021-06-04 00:00:00 Completed [facility] SARS-COV-2 COVID-19 MODERNA 0.25ML BOOSTER VACCINE 2021-06-04 00:00:00 Completed [facility] SARS-COV-2 COVID-19 MODERNA 0.25ML BOOSTER VACCINE 2021-06-04 00:00:00 Completed [facility] SARS-COV-2 COVID-19 MODERNA 0.25ML BOOSTER VACCINE 2021-06-04 00:00:00 Completed [facility] SARS-COV-2 COVID-19 MODERNA 0.25ML BOOSTER VACCINE 2021-06-04 00:00:00 Completed [facility] SARS-COV-2 COVID-19 MODERNA 0.25ML BOOSTER VACCINE 2021-06-04 00:00:00 Completed [facility] SARS-COV-2 COVID-19 MODERNA 0.25ML BOOSTER VACCINE 2021-06-04 00:00:00 Completed [facility] SARS-COV-2 COVID-19 MODERNA 0.25ML BOOSTER VACCINE 2021-06-04 00:00:00 Completed [facility] SARS-COV-2 COVID-19 MODERNA 0.25ML BOOSTER VACCINE 2021-06-04 00:00:00 Completed [facility] SARS-COV-2 COVID-19 MODERNA 0.25ML BOOSTER VACCINE 2021-06-04 00:00:00 Completed [facility] SARS-COV-2 COVID-19 MODERNA 0.25ML BOOSTER VACCINE 2021-06-04 00:00:00 Completed [facility] SARS-COV-2 COVID-19 MODERNA 0.25ML BOOSTER VACCINE 2021-06-04 00:00:00 Completed [facility] SARS-COV-2 COVID-19 MODERNA 0.25ML BOOSTER VACCINE 2021-06-04 00:00:00 Completed [facility] SARS-COV-2 COVID-19 MODERNA 0.25ML BOOSTER VACCINE 2021-06-04 00:00:00 Completed [facility] SARS-COV-2 COVID-19 MODERNA 0.25ML BOOSTER VACCINE 2021-06-04 00:00:00 Completed [facility] SARS-COV-2 COVID-19 MODERNA 0.25ML BOOSTER VACCINE 2021-06-04 00:00:00 Completed [facility] SARS-COV-2 COVID-19 MODERNA 0.25ML BOOSTER VACCINE 2021-06-04 00:00:00 Completed [facility] SARS-COV-2 COVID-19 MODERNA 0.25ML BOOSTER VACCINE 2021-06-04 00:00:00 Completed [facility] SARS-COV-2 COVID-19 MODERNA 0.25ML BOOSTER VACCINE 2021-06-04 00:00:00 Completed [facility] SARS-COV-2 COVID-19 MODERNA 0.25ML BOOSTER VACCINE 2021-06-04 00:00:00 Completed [facility] SARS-COV-2 COVID-19 MODERNA 0.25ML BOOSTER VACCINE 2021-06-04 00:00:00 Completed [facility] SARS-COV-2 COVID-19 MODERNA 0.25ML BOOSTER VACCINE 2021-06-04 00:00:00 Completed [facility] SARS-COV-2 COVID-19 MODERNA 0.25ML BOOSTER VACCINE 2021-06-04 00:00:00 Completed [facility] SARS-COV-2 COVID-19 MODERNA 0.25ML BOOSTER VACCINE 2021-06-04 00:00:00 Completed [facility] SARS-COV-2 COVID-19 MODERNA 0.25ML BOOSTER VACCINE 2021-06-04 00:00:00 Completed [facility] SARS-COV-2 COVID-19 MODERNA 0.25ML BOOSTER VACCINE 2021-06-04 00:00:00 Completed [facility] SARS-COV-2 COVID-19 MODERNA 0.25ML BOOSTER VACCINE 2021-06-04 00:00:00 Completed [facility] SARS-COV-2 COVID-19 MODERNA 0.25ML BOOSTER VACCINE 2021-06-04 00:00:00 Completed [facility] SARS-COV-2 COVID-19 MODERNA 0.25ML BOOSTER VACCINE 2021-06-04 00:00:00 Completed [facility] SARS-COV-2 COVID-19 MODERNA 0.25ML BOOSTER VACCINE 2021-06-04 00:00:00 Completed [facility] SARS-COV-2 COVID-19 MODERNA 0.25ML BOOSTER VACCINE 2021-06-04 00:00:00 Completed [facility] SARS-COV-2 COVID-19 MODERNA 0.25ML BOOSTER VACCINE 2021-06-04 00:00:00 Completed [facility] SARS-COV-2 COVID-19 MODERNA 0.25ML BOOSTER VACCINE 2021-06-04 00:00:00 Completed [facility] SARS-COV-2 COVID-19 MODERNA 0.25ML BOOSTER VACCINE 2021-06-04 00:00:00 Completed [facility] SARS-COV-2 COVID-19 MODERNA 0.25ML BOOSTER VACCINE 2021-06-04 00:00:00 Completed [facility] SARS-COV-2 COVID-19 MODERNA 0.25ML BOOSTER VACCINE 2021-06-04 00:00:00 Completed [facility] SARS-COV-2 COVID-19 MODERNA 0.25ML BOOSTER VACCINE 2021-06-04 00:00:00 Completed [facility] SARS-COV-2 COVID-19 MODERNA 0.25ML BOOSTER VACCINE 2021-06-04 00:00:00 Completed [facility] SARS-COV-2 COVID-19 MODERNA 0.25ML BOOSTER VACCINE 2021-06-04 00:00:00 Completed [facility] SARS-COV-2 COVID-19 MODERNA 0.25ML BOOSTER VACCINE 2021-06-04 00:00:00 Completed [facility] SARS-COV-2 COVID-19 MODERNA 0.25ML BOOSTER VACCINE 2021-06-04 00:00:00 Completed [facility] SARS-COV-2 COVID-19 MODERNA 0.25ML BOOSTER VACCINE 2021-06-04 00:00:00 Completed [facility] SARS-COV-2 COVID-19 MODERNA 0.25ML BOOSTER VACCINE 2021-06-04 00:00:00 Completed [facility] SARS-COV-2 COVID-19 MODERNA 0.25ML BOOSTER VACCINE 2021-06-04 00:00:00 Completed [facility] SARS-COV-2 COVID-19 MODERNA 0.25ML BOOSTER VACCINE 2021-06-04 00:00:00 Completed [facility] SARS-COV-2 COVID-19 MODERNA 0.25ML BOOSTER VACCINE 2021-06-04 00:00:00 Completed [facility] SARS-COV-2 COVID-19 MODERNA 0.25ML BOOSTER VACCINE 2021-06-04 00:00:00 Completed [facility] SARS-COV-2 COVID-19 MODERNA 0.25ML BOOSTER VACCINE 2021-06-04 00:00:00 Completed [facility] SARS-COV-2 COVID-19 MODERNA 0.25ML BOOSTER VACCINE 2021-06-04 00:00:00 Completed [facility] SARS-COV-2 COVID-19 MODERNA 0.25ML BOOSTER VACCINE 2021-06-04 00:00:00 Completed [facility] SARS-COV-2 COVID-19 MODERNA 0.25ML BOOSTER VACCINE 2021-06-04 00:00:00 Completed [facility] SARS-COV-2 COVID-19 MODERNA 0.25ML BOOSTER VACCINE 2021-06-04 00:00:00 Completed [facility] SARS-COV-2 COVID-19 MODERNA 0.25ML BOOSTER VACCINE 2021-06-04 00:00:00 Completed [facility] SARS-COV-2 COVID-19 MODERNA 0.25ML BOOSTER VACCINE 2021-06-04 00:00:00 Completed [facility] SARS-COV-2 COVID-19 MODERNA 0.25ML BOOSTER VACCINE 2021-06-04 00:00:00 Completed [facility] SARS-COV-2 COVID-19 MODERNA 0.25ML BOOSTER VACCINE 2021-06-04 00:00:00 Completed [facility] SARS-COV-2 COVID-19 MODERNA 0.25ML BOOSTER VACCINE 2021-06-04 00:00:00 Completed [facility] SARS-COV-2 COVID-19 MODERNA 0.25ML BOOSTER VACCINE 2021-06-04 00:00:00 Completed [facility] SARS-COV-2 COVID-19 MODERNA 0.25ML BOOSTER VACCINE 2021-06-04 00:00:00 Completed [facility] SARS-COV-2 COVID-19 MODERNA 0.25ML BOOSTER VACCINE 2021-06-04 00:00:00 Completed [facility] SARS-COV-2 COVID-19 MODERNA 0.25ML BOOSTER VACCINE 2021-06-04 00:00:00 Completed [facility] SARS-COV-2 COVID-19 MODERNA 0.25ML BOOSTER VACCINE 2021-06-04 00:00:00 Completed [facility] SARS-COV-2 COVID-19 MODERNA 0.25ML BOOSTER VACCINE 2021-06-04 00:00:00 Completed [facility] SARS-COV-2 COVID-19 MODERNA 0.25ML BOOSTER VACCINE 2021-06-04 00:00:00 Completed [facility] SARS-COV-2 COVID-19 MODERNA 0.25ML BOOSTER VACCINE 2021-06-04 00:00:00 Completed [facility] SARS-COV-2 COVID-19 MODERNA VACCINE 2020-09-06 00:00:00 Completed [facility] SARS-COV-2 COVID-19 MODERNA VACCINE 2020-09-06 00:00:00 Completed [facility] SARS-COV-2 COVID-19 MODERNA VACCINE 2020-09-06 00:00:00 Completed [facility] SARS-COV-2 COVID-19 MODERNA VACCINE 2020-09-06 00:00:00 Completed [facility] SARS-COV-2 COVID-19 MODERNA 12+ YRS VACCINE 2020-09-06 00:00:00 Completed [facility] SARS-COV-2 COVID-19 MODERNA 12+ YRS VACCINE 2020-09-06 00:00:00 Completed [facility] SARS-COV-2 COVID-19 MODERNA 12+ YRS VACCINE 2020-09-06 00:00:00 Completed [facility] SARS-COV-2 COVID-19 MODERNA 12+ YRS VACCINE 2020-09-06 00:00:00 Completed [facility] SARS-COV-2 COVID-19 MODERNA 12+ YRS VACCINE 2020-09-06 00:00:00 Completed [facility] SARS-COV-2 COVID-19 MODERNA 12+ YRS VACCINE 2020-09-06 00:00:00 Completed [facility] SARS-COV-2 COVID-19 MODERNA 12+ YRS VACCINE 2020-09-06 00:00:00 Completed [facility] SARS-COV-2 COVID-19 MODERNA 12+ YRS VACCINE 2020-09-06 00:00:00 Completed [facility] SARS-COV-2 COVID-19 MODERNA 12+ YRS VACCINE 2020-09-06 00:00:00 Completed [facility] SARS-COV-2 COVID-19 MODERNA 12+ YRS VACCINE 2020-09-06 00:00:00 Completed [facility] SARS-COV-2 COVID-19 MODERNA 12+ YRS VACCINE 2020-09-06 00:00:00 Completed [facility] SARS-COV-2 COVID-19 MODERNA 12+ YRS VACCINE 2020-09-06 00:00:00 Completed [facility] SARS-COV-2 COVID-19 MODERNA 12+ YRS VACCINE 2020-09-06 00:00:00 Completed [facility] SARS-COV-2 COVID-19 MODERNA 12+ YRS VACCINE 2020-09-06 00:00:00 Completed [facility] SARS-COV-2 COVID-19 MODERNA 12+ YRS VACCINE 2020-09-06 00:00:00 Completed [facility] SARS-COV-2 COVID-19 MODERNA 12+ YRS VACCINE 2020-09-06 00:00:00 Completed [facility] SARS-COV-2 COVID-19 MODERNA 12+ YRS VACCINE 2020-09-06 00:00:00 Completed [facility] SARS-COV-2 COVID-19 MODERNA 12+ YRS VACCINE 2020-09-06 00:00:00 Completed [facility] SARS-COV-2 COVID-19 MODERNA 12+ YRS VACCINE 2020-09-06 00:00:00 Completed [facility] SARS-COV-2 COVID-19 MODERNA 12+ YRS VACCINE 2020-09-06 00:00:00 Completed [facility] SARS-COV-2 COVID-19 MODERNA 12+ YRS VACCINE 2020-09-06 00:00:00 Completed [facility] SARS-COV-2 COVID-19 MODERNA 12+ YRS VACCINE 2020-09-06 00:00:00 Completed [facility] SARS-COV-2 COVID-19 MODERNA 12+ YRS VACCINE 2020-09-06 00:00:00 Completed [facility] SARS-COV-2 COVID-19 MODERNA 12+ YRS VACCINE 2020-09-06 00:00:00 Completed [facility] SARS-COV-2 COVID-19 MODERNA 12+ YRS VACCINE 2020-09-06 00:00:00 Completed [facility] SARS-COV-2 COVID-19 MODERNA 12+ YRS VACCINE 2020-09-06 00:00:00 Completed [facility] SARS-COV-2 COVID-19 MODERNA 12+ YRS VACCINE 2020-09-06 00:00:00 Completed [facility] SARS-COV-2 COVID-19 MODERNA 12+ YRS VACCINE 2020-09-06 00:00:00 Completed [facility] SARS-COV-2 COVID-19 MODERNA 12+ YRS VACCINE 2020-09-06 00:00:00 Completed [facility] SARS-COV-2 COVID-19 MODERNA 12+ YRS VACCINE 2020-09-06 00:00:00 Completed [facility] SARS-COV-2 COVID-19 MODERNA 12+ YRS VACCINE 2020-09-06 00:00:00 Completed [facility] SARS-COV-2 COVID-19 MODERNA 12+ YRS VACCINE 2020-09-06 00:00:00 Completed [facility] SARS-COV-2 COVID-19 MODERNA 12+ YRS VACCINE 2020-09-06 00:00:00 Completed [facility] SARS-COV-2 COVID-19 MODERNA 12+ YRS VACCINE 2020-09-06 00:00:00 Completed [facility] SARS-COV-2 COVID-19 MODERNA 12+ YRS VACCINE 2020-09-06 00:00:00 Completed [facility] SARS-COV-2 COVID-19 MODERNA 12+ YRS VACCINE 2020-09-06 00:00:00 Completed [facility] SARS-COV-2 COVID-19 MODERNA 12+ YRS VACCINE 2020-09-06 00:00:00 Completed [facility] SARS-COV-2 COVID-19 MODERNA 12+ YRS VACCINE 2020-09-06 00:00:00 Completed [facility] SARS-COV-2 COVID-19 MODERNA 12+ YRS VACCINE 2020-09-06 00:00:00 Completed [facility] SARS-COV-2 COVID-19 MODERNA 12+ YRS VACCINE 2020-09-06 00:00:00 Completed [facility] SARS-COV-2 COVID-19 MODERNA 12+ YRS VACCINE 2020-09-06 00:00:00 Completed [facility] SARS-COV-2 COVID-19 MODERNA 12+ YRS VACCINE 2020-09-06 00:00:00 Completed [facility] SARS-COV-2 COVID-19 MODERNA 12+ YRS VACCINE 2020-09-06 00:00:00 Completed [facility] SARS-COV-2 COVID-19 MODERNA 12+ YRS VACCINE 2020-09-06 00:00:00 Completed [facility] SARS-COV-2 COVID-19 MODERNA 12+ YRS VACCINE 2020-09-06 00:00:00 Completed [facility] SARS-COV-2 COVID-19 MODERNA 12+ YRS VACCINE 2020-09-06 00:00:00 Completed [facility] SARS-COV-2 COVID-19 MODERNA 12+ YRS VACCINE 2020-09-06 00:00:00 Completed [facility] SARS-COV-2 COVID-19 MODERNA 12+ YRS VACCINE 2020-09-06 00:00:00 Completed [facility] SARS-COV-2 COVID-19 MODERNA 12+ YRS VACCINE 2020-09-06 00:00:00 Completed [facility] SARS-COV-2 COVID-19 MODERNA 12+ YRS VACCINE 2020-09-06 00:00:00 Completed [facility] SARS-COV-2 COVID-19 MODERNA 12+ YRS VACCINE 2020-09-06 00:00:00 Completed [facility] SARS-COV-2 COVID-19 MODERNA 12+ YRS VACCINE 2020-09-06 00:00:00 Completed [facility] SARS-COV-2 COVID-19 MODERNA 12+ YRS VACCINE 2020-09-06 00:00:00 Completed [facility] SARS-COV-2 COVID-19 MODERNA 12+ YRS VACCINE 2020-09-06 00:00:00 Completed [facility] SARS-COV-2 COVID-19 MODERNA 12+ YRS VACCINE 2020-09-06 00:00:00 Completed [facility] SARS-COV-2 COVID-19 MODERNA 12+ YRS VACCINE 2020-09-06 00:00:00 Completed [facility] SARS-COV-2 COVID-19 MODERNA 12+ YRS VACCINE 2020-09-06 00:00:00 Completed [facility] SARS-COV-2 COVID-19 MODERNA 12+ YRS VACCINE 2020-09-06 00:00:00 Completed [facility] SARS-COV-2 COVID-19 MODERNA 12+ YRS VACCINE 2020-09-06 00:00:00 Completed [facility] SARS-COV-2 COVID-19 MODERNA 12+ YRS VACCINE 2020-09-06 00:00:00 Completed [facility] SARS-COV-2 COVID-19 MODERNA 12+ YRS VACCINE 2020-09-06 00:00:00 Completed [facility] SARS-COV-2 COVID-19 MODERNA 12+ YRS VACCINE 2020-09-06 00:00:00 Completed [facility] SARS-COV-2 COVID-19 MODERNA 12+ YRS VACCINE 2020-09-06 00:00:00 Completed [facility] SARS-COV-2 COVID-19 MODERNA 12+ YRS VACCINE 2020-09-06 00:00:00 Completed [facility] SARS-COV-2 COVID-19 MODERNA 12+ YRS VACCINE 2020-09-06 00:00:00 Completed [facility] SARS-COV-2 COVID-19 MODERNA 12+ YRS VACCINE 2020-09-06 00:00:00 Completed [facility] SARS-COV-2 COVID-19 MODERNA 12+ YRS VACCINE 2020-09-06 00:00:00 Completed [facility] SARS-COV-2 COVID-19 MODERNA 12+ YRS VACCINE 2020-09-06 00:00:00 Completed [facility] SARS-COV-2 COVID-19 MODERNA 12+ YRS VACCINE 2020-09-06 00:00:00 Completed [facility] SARS-COV-2 COVID-19 MODERNA 12+ YRS VACCINE 2020-09-06 00:00:00 Completed [facility] SARS-COV-2 COVID-19 MODERNA 12+ YRS VACCINE 2020-09-06 00:00:00 Completed [facility] SARS-COV-2 COVID-19 MODERNA 12+ YRS VACCINE 2020-09-06 00:00:00 Completed [facility] SARS-COV-2 COVID-19 MODERNA 12+ YRS VACCINE 2020-09-06 00:00:00 Completed [facility] SARS-COV-2 COVID-19 MODERNA 12+ YRS VACCINE 2020-09-06 00:00:00 Completed [facility] SARS-COV-2 COVID-19 MODERNA 12+ YRS VACCINE 2020-09-06 00:00:00 Completed [facility] SARS-COV-2 COVID-19 MODERNA 12+ YRS VACCINE 2020-09-06 00:00:00 Completed [facility] SARS-COV-2 COVID-19 MODERNA 12+ YRS VACCINE 2020-09-06 00:00:00 Completed [facility] SARS-COV-2 COVID-19 MODERNA 12+ YRS VACCINE 2020-09-06 00:00:00 Completed [facility] SARS-COV-2 COVID-19 MODERNA 12+ YRS VACCINE 2020-09-06 00:00:00 Completed [facility] SARS-COV-2 COVID-19 MODERNA 12+ YRS VACCINE 2020-09-06 00:00:00 Completed [facility] SARS-COV-2 COVID-19 MODERNA 12+ YRS VACCINE 2020-09-06 00:00:00 Completed [facility] SARS-COV-2 COVID-19 MODERNA 12+ YRS VACCINE 2020-09-06 00:00:00 Completed [facility] SARS-COV-2 COVID-19 MODERNA 12+ YRS VACCINE 2020-09-06 00:00:00 Completed [facility] SARS-COV-2 COVID-19 MODERNA 12+ YRS VACCINE 2020-09-06 00:00:00 Completed [facility] SARS-COV-2 COVID-19 MODERNA 12+ YRS VACCINE 2020-09-06 00:00:00 Completed [facility] SARS-COV-2 COVID-19 MODERNA 12+ YRS VACCINE 2020-09-06 00:00:00 Completed [facility] SARS-COV-2 COVID-19 MODERNA 12+ YRS VACCINE 2020-09-06 00:00:00 Completed [facility] SARS-COV-2 COVID-19 MODERNA 12+ YRS VACCINE 2020-09-06 00:00:00 Completed [facility] SARS-COV-2 COVID-19 MODERNA 12+ YRS VACCINE 2020-09-06 00:00:00 Completed [facility] SARS-COV-2 COVID-19 MODERNA 12+ YRS VACCINE 2020-09-06 00:00:00 Completed [facility] SARS-COV-2 COVID-19 MODERNA 12+ YRS VACCINE 2020-09-06 00:00:00 Completed [facility] SARS-COV-2 COVID-19 MODERNA 12+ YRS VACCINE 2020-09-06 00:00:00 Completed [facility] SARS-COV-2 COVID-19 MODERNA 12+ YRS VACCINE 2020-09-06 00:00:00 Completed [facility] SARS-COV-2 COVID-19 MODERNA 12+ YRS VACCINE 2020-09-06 00:00:00 Completed [facility] SARS-COV-2 COVID-19 MODERNA 12+ YRS VACCINE 2020-09-06 00:00:00 Completed [facility] SARS-COV-2 COVID-19 MODERNA 12+ YRS VACCINE 2020-09-06 00:00:00 Completed [facility] SARS-COV-2 COVID-19 MODERNA 12+ YRS VACCINE 2020-09-06 00:00:00 Completed [facility] SARS-COV-2 COVID-19 MODERNA 12+ YRS VACCINE 2020-09-06 00:00:00 Completed [facility] SARS-COV-2 COVID-19 MODERNA 12+ YRS VACCINE 2020-09-06 00:00:00 Completed [facility] SARS-COV-2 COVID-19 MODERNA 12+ YRS VACCINE 2020-09-06 00:00:00 Completed [facility] SARS-COV-2 COVID-19 MODERNA 12+ YRS VACCINE 2020-09-06 00:00:00 Completed [facility] SARS-COV-2 COVID-19 MODERNA 12+ YRS VACCINE 2020-09-06 00:00:00 Completed [facility] SARS-COV-2 COVID-19 MODERNA 12+ YRS VACCINE 2020-09-06 00:00:00 Completed [facility] SARS-COV-2 COVID-19 MODERNA 12+ YRS VACCINE 2020-09-06 00:00:00 Completed [facility] SARS-COV-2 COVID-19 MODERNA 12+ YRS VACCINE 2020-09-06 00:00:00 Completed [facility] SARS-COV-2 COVID-19 MODERNA 12+ YRS VACCINE 2020-09-06 00:00:00 Completed [facility] SARS-COV-2 COVID-19 MODERNA 12+ YRS VACCINE 2020-09-06 00:00:00 Completed [facility] SARS-COV-2 COVID-19 MODERNA 12+ YRS VACCINE 2020-09-06 00:00:00 Completed [facility] SARS-COV-2 COVID-19 MODERNA 12+ YRS VACCINE 2020-09-06 00:00:00 Completed [facility] SARS-COV-2 COVID-19 MODERNA 12+ YRS VACCINE 2020-09-06 00:00:00 Completed [facility] SARS-COV-2 COVID-19 MODERNA 12+ YRS VACCINE 2020-09-06 00:00:00 Completed [facility] SARS-COV-2 COVID-19 MODERNA 12+ YRS VACCINE 2020-09-06 00:00:00 Completed [facility] SARS-COV-2 COVID-19 MODERNA 12+ YRS VACCINE 2020-09-06 00:00:00 Completed [facility] SARS-COV-2 COVID-19 MODERNA 12+ YRS VACCINE 2020-09-06 00:00:00 Completed [facility] SARS-COV-2 COVID-19 MODERNA 12+ YRS VACCINE 2020-09-06 00:00:00 Completed [facility] SARS-COV-2 COVID-19 MODERNA 12+ YRS VACCINE 2020-09-06 00:00:00 Completed [facility] SARS-COV-2 COVID-19 MODERNA 12+ YRS VACCINE 2020-09-06 00:00:00 Completed [facility] SARS-COV-2 COVID-19 MODERNA 12+ YRS VACCINE 2020-09-06 00:00:00 Completed [facility] SARS-COV-2 COVID-19 MODERNA 12+ YRS VACCINE 2020-09-06 00:00:00 Completed [facility] SARS-COV-2 COVID-19 MODERNA 12+ YRS VACCINE 2020-09-06 00:00:00 Completed [facility] SARS-COV-2 COVID-19 MODERNA 12+ YRS VACCINE 2020-09-06 00:00:00 Completed [facility] SARS-COV-2 COVID-19 MODERNA 12+ YRS VACCINE 2020-09-06 00:00:00 Completed [facility] SARS-COV-2 COVID-19 MODERNA 12+ YRS VACCINE 2020-09-06 00:00:00 Completed [facility] SARS-COV-2 COVID-19 MODERNA 12+ YRS VACCINE 2020-09-06 00:00:00 Completed [facility] SARS-COV-2 COVID-19 MODERNA 12+ YRS VACCINE 2020-09-06 00:00:00 Completed [facility] SARS-COV-2 COVID-19 MODERNA 12+ YRS VACCINE 2020-09-06 00:00:00 Completed [facility] SARS-COV-2 COVID-19 MODERNA 12+ YRS VACCINE 2020-09-06 00:00:00 Completed [facility] SARS-COV-2 COVID-19 MODERNA 12+ YRS VACCINE 2020-09-06 00:00:00 Completed [facility] SARS-COV-2 COVID-19 MODERNA 12+ YRS VACCINE 2020-09-06 00:00:00 Completed [facility] SARS-COV-2 COVID-19 MODERNA 12+ YRS VACCINE 2020-09-06 00:00:00 Completed [facility] SARS-COV-2 COVID-19 MODERNA 12+ YRS VACCINE 2020-09-06 00:00:00 Completed [facility] SARS-COV-2 COVID-19 MODERNA 12+ YRS VACCINE 2020-09-06 00:00:00 Completed [facility] SARS-COV-2 COVID-19 MODERNA 12+ YRS VACCINE 2020-09-06 00:00:00 Completed [facility] SARS-COV-2 COVID-19 MODERNA 12+ YRS VACCINE 2020-09-06 00:00:00 Completed [facility] SARS-COV-2 COVID-19 MODERNA 12+ YRS VACCINE 2020-09-06 00:00:00 Completed [facility] SARS-COV-2 COVID-19 MODERNA 12+ YRS VACCINE 2020-09-06 00:00:00 Completed [facility] SARS-COV-2 COVID-19 MODERNA 12+ YRS VACCINE 2020-09-06 00:00:00 Completed [facility] SARS-COV-2 COVID-19 MODERNA 12+ YRS VACCINE 2020-09-06 00:00:00 Completed [facility] SARS-COV-2 COVID-19 MODERNA 12+ YRS VACCINE 2020-09-06 00:00:00 Completed [facility] SARS-COV-2 COVID-19 MODERNA 12+ YRS VACCINE 2020-09-06 00:00:00 Completed [facility] SARS-COV-2 COVID-19 MODERNA 12+ YRS VACCINE 2020-09-06 00:00:00 Completed [facility] SARS-COV-2 COVID-19 MODERNA 12+ YRS VACCINE 2020-09-06 00:00:00 Completed [facility] SARS-COV-2 COVID-19 MODERNA 12+ YRS VACCINE 2020-09-06 00:00:00 Completed [facility] SARS-COV-2 COVID-19 MODERNA 12+ YRS VACCINE 2020-09-06 00:00:00 Completed [facility] SARS-COV-2 COVID-19 MODERNA 12+ YRS VACCINE 2020-09-06 00:00:00 Completed [facility] SARS-COV-2 COVID-19 MODERNA 12+ YRS VACCINE 2020-09-06 00:00:00 Completed [facility] SARS-COV-2 COVID-19 MODERNA 12+ YRS VACCINE 2020-09-06 00:00:00 Completed [facility] SARS-COV-2 COVID-19 MODERNA 12+ YRS VACCINE 2020-09-06 00:00:00 Completed [facility] SARS-COV-2 COVID-19 MODERNA 12+ YRS VACCINE 2020-09-06 00:00:00 Completed [facility] SARS-COV-2 COVID-19 MODERNA 12+ YRS VACCINE 2020-09-06 00:00:00 Completed [facility] SARS-COV-2 COVID-19 MODERNA 12+ YRS VACCINE 2020-09-06 00:00:00 Completed [facility] SARS-COV-2 COVID-19 MODERNA 12+ YRS VACCINE 2020-09-06 00:00:00 Completed [facility] SARS-COV-2 COVID-19 MODERNA 12+ YRS VACCINE 2020-09-06 00:00:00 Completed [facility] SARS-COV-2 COVID-19 MODERNA 12+ YRS VACCINE 2020-09-06 00:00:00 Completed [facility] SARS-COV-2 COVID-19 MODERNA 12+ YRS VACCINE 2020-09-06 00:00:00 Completed [facility] SARS-COV-2 COVID-19 MODERNA 12+ YRS VACCINE 2020-09-06 00:00:00 Completed [facility] SARS-COV-2 COVID-19 MODERNA 12+ YRS VACCINE 2020-09-06 00:00:00 Completed [facility] SARS-COV-2 COVID-19 MODERNA 12+ YRS VACCINE 2020-09-06 00:00:00 Completed [facility] SARS-COV-2 COVID-19 MODERNA 12+ YRS VACCINE 2020-09-06 00:00:00 Completed [facility] SARS-COV-2 COVID-19 MODERNA 12+ YRS VACCINE 2020-09-06 00:00:00 Completed [facility] SARS-COV-2 COVID-19 MODERNA 12+ YRS VACCINE 2020-09-06 00:00:00 Completed [facility] SARS-COV-2 COVID-19 MODERNA 12+ YRS VACCINE 2020-09-06 00:00:00 Completed [facility] SARS-COV-2 COVID-19 MODERNA 12+ YRS VACCINE 2020-09-06 00:00:00 Completed [facility] SARS-COV-2 COVID-19 MODERNA 12+ YRS VACCINE 2020-09-06 00:00:00 Completed [facility] SARS-COV-2 COVID-19 MODERNA 12+ YRS VACCINE 2020-09-06 00:00:00 Completed [facility] SARS-COV-2 COVID-19 MODERNA 12+ YRS VACCINE 2020-09-06 00:00:00 Completed [facility] SARS-COV-2 COVID-19 MODERNA 12+ YRS VACCINE 2020-09-06 00:00:00 Completed [facility] SARS-COV-2 COVID-19 MODERNA 12+ YRS VACCINE 2020-09-06 00:00:00 Completed [facility] SARS-COV-2 COVID-19 MODERNA 12+ YRS VACCINE 2020-09-06 00:00:00 Completed [facility] SARS-COV-2 COVID-19 MODERNA 12+ YRS VACCINE 2020-09-06 00:00:00 Completed [facility] SARS-COV-2 COVID-19 MODERNA 12+ YRS VACCINE 2020-09-06 00:00:00 Completed [facility] SARS-COV-2 COVID-19 MODERNA 12+ YRS VACCINE 2020-09-06 00:00:00 Completed [facility] SARS-COV-2 COVID-19 MODERNA 12+ YRS VACCINE 2020-09-06 00:00:00 Completed [facility] SARS-COV-2 COVID-19 MODERNA 12+ YRS VACCINE 2020-09-06 00:00:00 Completed [facility] SARS-COV-2 COVID-19 MODERNA 12+ YRS VACCINE 2020-09-06 00:00:00 Completed [facility] SARS-COV-2 COVID-19 MODERNA 12+ YRS VACCINE 2020-09-06 00:00:00 Completed [facility] SARS-COV-2 COVID-19 MODERNA 12+ YRS VACCINE 2020-09-06 00:00:00 Completed [facility] SARS-COV-2 COVID-19 MODERNA 12+ YRS VACCINE 2020-09-06 00:00:00 Completed [facility] SARS-COV-2 COVID-19 MODERNA 12+ YRS VACCINE 2020-09-06 00:00:00 Completed [facility] SARS-COV-2 COVID-19 MODERNA 12+ YRS VACCINE 2020-09-06 00:00:00 Completed [facility] SARS-COV-2 COVID-19 MODERNA 12+ YRS VACCINE 2020-09-06 00:00:00 Completed [facility] SARS-COV-2 COVID-19 MODERNA 12+ YRS VACCINE 2020-09-06 00:00:00 Completed [facility] SARS-COV-2 COVID-19 MODERNA 12+ YRS VACCINE 2020-09-06 00:00:00 Completed [facility] SARS-COV-2 COVID-19 MODERNA VACCINE 2020-08-09 00:00:00 Completed [facility] SARS-COV-2 COVID-19 MODERNA VACCINE 2020-08-09 00:00:00 Completed [facility] SARS-COV-2 COVID-19 MODERNA VACCINE 2020-08-09 00:00:00 Completed [facility] SARS-COV-2 COVID-19 MODERNA VACCINE 2020-08-09 00:00:00 Completed [facility] SARS-COV-2 COVID-19 MODERNA 12+ YRS VACCINE 2020-08-09 00:00:00 Completed [facility] SARS-COV-2 COVID-19 MODERNA 12+ YRS VACCINE 2020-08-09 00:00:00 Completed [facility] SARS-COV-2 COVID-19 MODERNA 12+ YRS VACCINE 2020-08-09 00:00:00 Completed [facility] SARS-COV-2 COVID-19 MODERNA 12+ YRS VACCINE 2020-08-09 00:00:00 Completed [facility] SARS-COV-2 COVID-19 MODERNA 12+ YRS VACCINE 2020-08-09 00:00:00 Completed [facility] SARS-COV-2 COVID-19 MODERNA 12+ YRS VACCINE 2020-08-09 00:00:00 Completed [facility] SARS-COV-2 COVID-19 MODERNA 12+ YRS VACCINE 2020-08-09 00:00:00 Completed [facility] SARS-COV-2 COVID-19 MODERNA 12+ YRS VACCINE 2020-08-09 00:00:00 Completed [facility] SARS-COV-2 COVID-19 MODERNA 12+ YRS VACCINE 2020-08-09 00:00:00 Completed [facility] SARS-COV-2 COVID-19 MODERNA 12+ YRS VACCINE 2020-08-09 00:00:00 Completed [facility] SARS-COV-2 COVID-19 MODERNA 12+ YRS VACCINE 2020-08-09 00:00:00 Completed [facility] SARS-COV-2 COVID-19 MODERNA 12+ YRS VACCINE 2020-08-09 00:00:00 Completed [facility] SARS-COV-2 COVID-19 MODERNA 12+ YRS VACCINE 2020-08-09 00:00:00 Completed [facility] SARS-COV-2 COVID-19 MODERNA 12+ YRS VACCINE 2020-08-09 00:00:00 Completed [facility] SARS-COV-2 COVID-19 MODERNA 12+ YRS VACCINE 2020-08-09 00:00:00 Completed [facility] SARS-COV-2 COVID-19 MODERNA 12+ YRS VACCINE 2020-08-09 00:00:00 Completed [facility] SARS-COV-2 COVID-19 MODERNA 12+ YRS VACCINE 2020-08-09 00:00:00 Completed [facility] SARS-COV-2 COVID-19 MODERNA 12+ YRS VACCINE 2020-08-09 00:00:00 Completed [facility] SARS-COV-2 COVID-19 MODERNA 12+ YRS VACCINE 2020-08-09 00:00:00 Completed [facility] SARS-COV-2 COVID-19 MODERNA 12+ YRS VACCINE 2020-08-09 00:00:00 Completed [facility] SARS-COV-2 COVID-19 MODERNA 12+ YRS VACCINE 2020-08-09 00:00:00 Completed [facility] SARS-COV-2 COVID-19 MODERNA 12+ YRS VACCINE 2020-08-09 00:00:00 Completed [facility] SARS-COV-2 COVID-19 MODERNA 12+ YRS VACCINE 2020-08-09 00:00:00 Completed [facility] SARS-COV-2 COVID-19 MODERNA 12+ YRS VACCINE 2020-08-09 00:00:00 Completed [facility] SARS-COV-2 COVID-19 MODERNA 12+ YRS VACCINE 2020-08-09 00:00:00 Completed [facility] SARS-COV-2 COVID-19 MODERNA 12+ YRS VACCINE 2020-08-09 00:00:00 Completed [facility] SARS-COV-2 COVID-19 MODERNA 12+ YRS VACCINE 2020-08-09 00:00:00 Completed [facility] SARS-COV-2 COVID-19 MODERNA 12+ YRS VACCINE 2020-08-09 00:00:00 Completed [facility] SARS-COV-2 COVID-19 MODERNA 12+ YRS VACCINE 2020-08-09 00:00:00 Completed [facility] SARS-COV-2 COVID-19 MODERNA 12+ YRS VACCINE 2020-08-09 00:00:00 Completed [facility] SARS-COV-2 COVID-19 MODERNA 12+ YRS VACCINE 2020-08-09 00:00:00 Completed [facility] SARS-COV-2 COVID-19 MODERNA 12+ YRS VACCINE 2020-08-09 00:00:00 Completed [facility] SARS-COV-2 COVID-19 MODERNA 12+ YRS VACCINE 2020-08-09 00:00:00 Completed [facility] SARS-COV-2 COVID-19 MODERNA 12+ YRS VACCINE 2020-08-09 00:00:00 Completed [facility] SARS-COV-2 COVID-19 MODERNA 12+ YRS VACCINE 2020-08-09 00:00:00 Completed [facility] SARS-COV-2 COVID-19 MODERNA 12+ YRS VACCINE 2020-08-09 00:00:00 Completed [facility] SARS-COV-2 COVID-19 MODERNA 12+ YRS VACCINE 2020-08-09 00:00:00 Completed [facility] SARS-COV-2 COVID-19 MODERNA 12+ YRS VACCINE 2020-08-09 00:00:00 Completed [facility] SARS-COV-2 COVID-19 MODERNA 12+ YRS VACCINE 2020-08-09 00:00:00 Completed [facility] SARS-COV-2 COVID-19 MODERNA 12+ YRS VACCINE 2020-08-09 00:00:00 Completed [facility] SARS-COV-2 COVID-19 MODERNA 12+ YRS VACCINE 2020-08-09 00:00:00 Completed [facility] SARS-COV-2 COVID-19 MODERNA 12+ YRS VACCINE 2020-08-09 00:00:00 Completed [facility] SARS-COV-2 COVID-19 MODERNA 12+ YRS VACCINE 2020-08-09 00:00:00 Completed [facility] SARS-COV-2 COVID-19 MODERNA 12+ YRS VACCINE 2020-08-09 00:00:00 Completed [facility] SARS-COV-2 COVID-19 MODERNA 12+ YRS VACCINE 2020-08-09 00:00:00 Completed [facility] SARS-COV-2 COVID-19 MODERNA 12+ YRS VACCINE 2020-08-09 00:00:00 Completed [facility] SARS-COV-2 COVID-19 MODERNA 12+ YRS VACCINE 2020-08-09 00:00:00 Completed [facility] SARS-COV-2 COVID-19 MODERNA 12+ YRS VACCINE 2020-08-09 00:00:00 Completed [facility] SARS-COV-2 COVID-19 MODERNA 12+ YRS VACCINE 2020-08-09 00:00:00 Completed [facility] SARS-COV-2 COVID-19 MODERNA 12+ YRS VACCINE 2020-08-09 00:00:00 Completed [facility] SARS-COV-2 COVID-19 MODERNA 12+ YRS VACCINE 2020-08-09 00:00:00 Completed [facility] SARS-COV-2 COVID-19 MODERNA 12+ YRS VACCINE 2020-08-09 00:00:00 Completed [facility] SARS-COV-2 COVID-19 MODERNA 12+ YRS VACCINE 2020-08-09 00:00:00 Completed [facility] SARS-COV-2 COVID-19 MODERNA 12+ YRS VACCINE 2020-08-09 00:00:00 Completed [facility] SARS-COV-2 COVID-19 MODERNA 12+ YRS VACCINE 2020-08-09 00:00:00 Completed [facility] SARS-COV-2 COVID-19 MODERNA 12+ YRS VACCINE 2020-08-09 00:00:00 Completed [facility] SARS-COV-2 COVID-19 MODERNA 12+ YRS VACCINE 2020-08-09 00:00:00 Completed [facility] SARS-COV-2 COVID-19 MODERNA 12+ YRS VACCINE 2020-08-09 00:00:00 Completed [facility] SARS-COV-2 COVID-19 MODERNA 12+ YRS VACCINE 2020-08-09 00:00:00 Completed [facility] SARS-COV-2 COVID-19 MODERNA 12+ YRS VACCINE 2020-08-09 00:00:00 Completed [facility] SARS-COV-2 COVID-19 MODERNA 12+ YRS VACCINE 2020-08-09 00:00:00 Completed [facility] SARS-COV-2 COVID-19 MODERNA 12+ YRS VACCINE 2020-08-09 00:00:00 Completed [facility] SARS-COV-2 COVID-19 MODERNA 12+ YRS VACCINE 2020-08-09 00:00:00 Completed [facility] SARS-COV-2 COVID-19 MODERNA 12+ YRS VACCINE 2020-08-09 00:00:00 Completed [facility] SARS-COV-2 COVID-19 MODERNA 12+ YRS VACCINE 2020-08-09 00:00:00 Completed [facility] SARS-COV-2 COVID-19 MODERNA 12+ YRS VACCINE 2020-08-09 00:00:00 Completed [facility] SARS-COV-2 COVID-19 MODERNA 12+ YRS VACCINE 2020-08-09 00:00:00 Completed [facility] SARS-COV-2 COVID-19 MODERNA 12+ YRS VACCINE 2020-08-09 00:00:00 Completed [facility] SARS-COV-2 COVID-19 MODERNA 12+ YRS VACCINE 2020-08-09 00:00:00 Completed [facility] SARS-COV-2 COVID-19 MODERNA 12+ YRS VACCINE 2020-08-09 00:00:00 Completed [facility] SARS-COV-2 COVID-19 MODERNA 12+ YRS VACCINE 2020-08-09 00:00:00 Completed [facility] SARS-COV-2 COVID-19 MODERNA 12+ YRS VACCINE 2020-08-09 00:00:00 Completed [facility] SARS-COV-2 COVID-19 MODERNA 12+ YRS VACCINE 2020-08-09 00:00:00 Completed [facility] SARS-COV-2 COVID-19 MODERNA 12+ YRS VACCINE 2020-08-09 00:00:00 Completed [facility] SARS-COV-2 COVID-19 MODERNA 12+ YRS VACCINE 2020-08-09 00:00:00 Completed [facility] SARS-COV-2 COVID-19 MODERNA 12+ YRS VACCINE 2020-08-09 00:00:00 Completed [facility] SARS-COV-2 COVID-19 MODERNA 12+ YRS VACCINE 2020-08-09 00:00:00 Completed [facility] SARS-COV-2 COVID-19 MODERNA 12+ YRS VACCINE 2020-08-09 00:00:00 Completed [facility] SARS-COV-2 COVID-19 MODERNA 12+ YRS VACCINE 2020-08-09 00:00:00 Completed [facility] SARS-COV-2 COVID-19 MODERNA 12+ YRS VACCINE 2020-08-09 00:00:00 Completed [facility] SARS-COV-2 COVID-19 MODERNA 12+ YRS VACCINE 2020-08-09 00:00:00 Completed [facility] SARS-COV-2 COVID-19 MODERNA 12+ YRS VACCINE 2020-08-09 00:00:00 Completed [facility] SARS-COV-2 COVID-19 MODERNA 12+ YRS VACCINE 2020-08-09 00:00:00 Completed [facility] SARS-COV-2 COVID-19 MODERNA 12+ YRS VACCINE 2020-08-09 00:00:00 Completed [facility] SARS-COV-2 COVID-19 MODERNA 12+ YRS VACCINE 2020-08-09 00:00:00 Completed [facility] SARS-COV-2 COVID-19 MODERNA 12+ YRS VACCINE 2020-08-09 00:00:00 Completed [facility] SARS-COV-2 COVID-19 MODERNA 12+ YRS VACCINE 2020-08-09 00:00:00 Completed [facility] SARS-COV-2 COVID-19 MODERNA 12+ YRS VACCINE 2020-08-09 00:00:00 Completed [facility] SARS-COV-2 COVID-19 MODERNA 12+ YRS VACCINE 2020-08-09 00:00:00 Completed [facility] SARS-COV-2 COVID-19 MODERNA 12+ YRS VACCINE 2020-08-09 00:00:00 Completed [facility] SARS-COV-2 COVID-19 MODERNA 12+ YRS VACCINE 2020-08-09 00:00:00 Completed [facility] SARS-COV-2 COVID-19 MODERNA 12+ YRS VACCINE 2020-08-09 00:00:00 Completed [facility] SARS-COV-2 COVID-19 MODERNA 12+ YRS VACCINE 2020-08-09 00:00:00 Completed [facility] SARS-COV-2 COVID-19 MODERNA 12+ YRS VACCINE 2020-08-09 00:00:00 Completed [facility] SARS-COV-2 COVID-19 MODERNA 12+ YRS VACCINE 2020-08-09 00:00:00 Completed [facility] SARS-COV-2 COVID-19 MODERNA 12+ YRS VACCINE 2020-08-09 00:00:00 Completed [facility] SARS-COV-2 COVID-19 MODERNA 12+ YRS VACCINE 2020-08-09 00:00:00 Completed [facility] SARS-COV-2 COVID-19 MODERNA 12+ YRS VACCINE 2020-08-09 00:00:00 Completed [facility] SARS-COV-2 COVID-19 MODERNA 12+ YRS VACCINE 2020-08-09 00:00:00 Completed [facility] SARS-COV-2 COVID-19 MODERNA 12+ YRS VACCINE 2020-08-09 00:00:00 Completed [facility] SARS-COV-2 COVID-19 MODERNA 12+ YRS VACCINE 2020-08-09 00:00:00 Completed [facility] SARS-COV-2 COVID-19 MODERNA 12+ YRS VACCINE 2020-08-09 00:00:00 Completed [facility] SARS-COV-2 COVID-19 MODERNA 12+ YRS VACCINE 2020-08-09 00:00:00 Completed [facility] SARS-COV-2 COVID-19 MODERNA 12+ YRS VACCINE 2020-08-09 00:00:00 Completed [facility] SARS-COV-2 COVID-19 MODERNA 12+ YRS VACCINE 2020-08-09 00:00:00 Completed [facility] SARS-COV-2 COVID-19 MODERNA 12+ YRS VACCINE 2020-08-09 00:00:00 Completed [facility] SARS-COV-2 COVID-19 MODERNA 12+ YRS VACCINE 2020-08-09 00:00:00 Completed [facility] SARS-COV-2 COVID-19 MODERNA 12+ YRS VACCINE 2020-08-09 00:00:00 Completed [facility] SARS-COV-2 COVID-19 MODERNA 12+ YRS VACCINE 2020-08-09 00:00:00 Completed [facility] SARS-COV-2 COVID-19 MODERNA 12+ YRS VACCINE 2020-08-09 00:00:00 Completed [facility] SARS-COV-2 COVID-19 MODERNA 12+ YRS VACCINE 2020-08-09 00:00:00 Completed [facility] SARS-COV-2 COVID-19 MODERNA 12+ YRS VACCINE 2020-08-09 00:00:00 Completed [facility] SARS-COV-2 COVID-19 MODERNA 12+ YRS VACCINE 2020-08-09 00:00:00 Completed [facility] SARS-COV-2 COVID-19 MODERNA 12+ YRS VACCINE 2020-08-09 00:00:00 Completed [facility] SARS-COV-2 COVID-19 MODERNA 12+ YRS VACCINE 2020-08-09 00:00:00 Completed [facility] SARS-COV-2 COVID-19 MODERNA 12+ YRS VACCINE 2020-08-09 00:00:00 Completed [facility] SARS-COV-2 COVID-19 MODERNA 12+ YRS VACCINE 2020-08-09 00:00:00 Completed [facility] SARS-COV-2 COVID-19 MODERNA 12+ YRS VACCINE 2020-08-09 00:00:00 Completed [facility] SARS-COV-2 COVID-19 MODERNA 12+ YRS VACCINE 2020-08-09 00:00:00 Completed [facility] SARS-COV-2 COVID-19 MODERNA 12+ YRS VACCINE 2020-08-09 00:00:00 Completed [facility] SARS-COV-2 COVID-19 MODERNA 12+ YRS VACCINE 2020-08-09 00:00:00 Completed [facility] SARS-COV-2 COVID-19 MODERNA 12+ YRS VACCINE 2020-08-09 00:00:00 Completed [facility] SARS-COV-2 COVID-19 MODERNA 12+ YRS VACCINE 2020-08-09 00:00:00 Completed [facility] SARS-COV-2 COVID-19 MODERNA 12+ YRS VACCINE 2020-08-09 00:00:00 Completed [facility] SARS-COV-2 COVID-19 MODERNA 12+ YRS VACCINE 2020-08-09 00:00:00 Completed [facility] SARS-COV-2 COVID-19 MODERNA 12+ YRS VACCINE 2020-08-09 00:00:00 Completed [facility] SARS-COV-2 COVID-19 MODERNA 12+ YRS VACCINE 2020-08-09 00:00:00 Completed [facility] SARS-COV-2 COVID-19 MODERNA 12+ YRS VACCINE 2020-08-09 00:00:00 Completed [facility] SARS-COV-2 COVID-19 MODERNA 12+ YRS VACCINE 2020-08-09 00:00:00 Completed [facility] SARS-COV-2 COVID-19 MODERNA 12+ YRS VACCINE 2020-08-09 00:00:00 Completed [facility] SARS-COV-2 COVID-19 MODERNA 12+ YRS VACCINE 2020-08-09 00:00:00 Completed [facility] SARS-COV-2 COVID-19 MODERNA 12+ YRS VACCINE 2020-08-09 00:00:00 Completed [facility] SARS-COV-2 COVID-19 MODERNA 12+ YRS VACCINE 2020-08-09 00:00:00 Completed [facility] SARS-COV-2 COVID-19 MODERNA 12+ YRS VACCINE 2020-08-09 00:00:00 Completed [facility] SARS-COV-2 COVID-19 MODERNA 12+ YRS VACCINE 2020-08-09 00:00:00 Completed [facility] SARS-COV-2 COVID-19 MODERNA 12+ YRS VACCINE 2020-08-09 00:00:00 Completed [facility] SARS-COV-2 COVID-19 MODERNA 12+ YRS VACCINE 2020-08-09 00:00:00 Completed [facility] SARS-COV-2 COVID-19 MODERNA 12+ YRS VACCINE 2020-08-09 00:00:00 Completed [facility] SARS-COV-2 COVID-19 MODERNA 12+ YRS VACCINE 2020-08-09 00:00:00 Completed [facility] SARS-COV-2 COVID-19 MODERNA 12+ YRS VACCINE 2020-08-09 00:00:00 Completed [facility] SARS-COV-2 COVID-19 MODERNA 12+ YRS VACCINE 2020-08-09 00:00:00 Completed [facility] SARS-COV-2 COVID-19 MODERNA 12+ YRS VACCINE 2020-08-09 00:00:00 Completed [facility] SARS-COV-2 COVID-19 MODERNA 12+ YRS VACCINE 2020-08-09 00:00:00 Completed [facility] SARS-COV-2 COVID-19 MODERNA 12+ YRS VACCINE 2020-08-09 00:00:00 Completed [facility] SARS-COV-2 COVID-19 MODERNA 12+ YRS VACCINE 2020-08-09 00:00:00 Completed [facility] SARS-COV-2 COVID-19 MODERNA 12+ YRS VACCINE 2020-08-09 00:00:00 Completed [facility] SARS-COV-2 COVID-19 MODERNA 12+ YRS VACCINE 2020-08-09 00:00:00 Completed [facility] SARS-COV-2 COVID-19 MODERNA 12+ YRS VACCINE 2020-08-09 00:00:00 Completed [facility] SARS-COV-2 COVID-19 MODERNA 12+ YRS VACCINE 2020-08-09 00:00:00 Completed [facility] SARS-COV-2 COVID-19 MODERNA 12+ YRS VACCINE 2020-08-09 00:00:00 Completed [facility] SARS-COV-2 COVID-19 MODERNA 12+ YRS VACCINE 2020-08-09 00:00:00 Completed [facility] SARS-COV-2 COVID-19 MODERNA 12+ YRS VACCINE 2020-08-09 00:00:00 Completed [facility] SARS-COV-2 COVID-19 MODERNA 12+ YRS VACCINE 2020-08-09 00:00:00 Completed [facility] SARS-COV-2 COVID-19 MODERNA 12+ YRS VACCINE 2020-08-09 00:00:00 Completed [facility] SARS-COV-2 COVID-19 MODERNA 12+ YRS VACCINE 2020-08-09 00:00:00 Completed [facility] SARS-COV-2 COVID-19 MODERNA 12+ YRS VACCINE 2020-08-09 00:00:00 Completed [facility] SARS-COV-2 COVID-19 MODERNA 12+ YRS VACCINE 2020-08-09 00:00:00 Completed [facility] SARS-COV-2 COVID-19 MODERNA 12+ YRS VACCINE 2020-08-09 00:00:00 Completed [facility] SARS-COV-2 COVID-19 MODERNA 12+ YRS VACCINE 2020-08-09 00:00:00 Completed [facility] SARS-COV-2 COVID-19 MODERNA 12+ YRS VACCINE 2020-08-09 00:00:00 Completed [facility] SARS-COV-2 COVID-19 MODERNA 12+ YRS VACCINE 2020-08-09 00:00:00 Completed [facility] SARS-COV-2 COVID-19 MODERNA 12+ YRS VACCINE 2020-08-09 00:00:00 Completed [facility] SARS-COV-2 COVID-19 MODERNA 12+ YRS VACCINE 2020-08-09 00:00:00 Completed [facility] SARS-COV-2 COVID-19 MODERNA 12+ YRS VACCINE 2020-08-09 00:00:00 Completed [facility] SARS-COV-2 COVID-19 MODERNA 12+ YRS VACCINE 2020-08-09 00:00:00 Completed [facility] SARS-COV-2 COVID-19 MODERNA 12+ YRS VACCINE 2020-08-09 00:00:00 Completed [facility] SARS-COV-2 COVID-19 MODERNA 12+ YRS VACCINE 2020-08-09 00:00:00 Completed [facility] SARS-COV-2 COVID-19 MODERNA 12+ YRS VACCINE 2020-08-09 00:00:00 Completed [facility] SARS-COV-2 COVID-19 MODERNA 12+ YRS VACCINE 2020-08-09 00:00:00 Completed [facility] SARS-COV-2 COVID-19 MODERNA 12+ YRS VACCINE 2020-08-09 00:00:00 Completed [facility] SARS-COV-2 COVID-19 MODERNA 12+ YRS VACCINE 2020-08-09 00:00:00 Completed [facility] SARS-COV-2 COVID-19 MODERNA 12+ YRS VACCINE 2020-08-09 00:00:00 Completed [facility] SARS-COV-2 COVID-19 MODERNA 12+ YRS VACCINE 2020-08-09 00:00:00 Completed [facility] SARS-COV-2 COVID-19 MODERNA 12+ YRS VACCINE 2020-08-09 00:00:00 Completed [facility] SARS-COV-2 COVID-19 MODERNA 12+ YRS VACCINE 2020-08-09 00:00:00 Completed [facility] SARS-COV-2 COVID-19 MODERNA 12+ YRS VACCINE 2020-08-09 00:00:00 Completed [facility] SARS-COV-2 COVID-19 MODERNA 12+ YRS VACCINE 2020-08-09 00:00:00 Completed [facility] SARS-COV-2 COVID-19 MODERNA 12+ YRS VACCINE 2020-08-09 00:00:00 Completed [facility] SARS-COV-2 COVID-19 MODERNA 12+ YRS VACCINE 2020-08-09 00:00:00 Completed [facility] SARS-COV-2 COVID-19 MODERNA 12+ YRS VACCINE 2020-08-09 00:00:00 Completed [facility] SARS-COV-2 COVID-19 MODERNA 12+ YRS VACCINE 2020-08-09 00:00:00 Completed [facility] SARS-COV-2 COVID-19 MODERNA 12+ YRS VACCINE 2020-08-09 00:00:00 Completed [facility] SARS-COV-2 COVID-19 MODERNA 12+ YRS VACCINE 2020-08-09 00:00:00 Completed [facility] Pneumococcal Polysaccharide, PPSV23 (PNEUMOVAX) 2020-06-15 00:00:00 Completed [facility] Influenza Virus Vaccine Quad .5 mL IM 6+ MO 2020-06-15 00:00:00 Completed [facility] Pneumococcal Polysaccharide, PPSV23 (PNEUMOVAX) 2020-06-15 00:00:00 Completed [facility] Influenza Virus Vaccine Quad .5 mL IM 6+ MO 2020-06-15 00:00:00 Completed [facility] Pneumococcal Polysaccharide, PPSV23 (PNEUMOVAX) 2020-06-15 00:00:00 Completed [facility] Influenza Virus Vaccine Quad .5 mL IM 6+ MO 2020-06-15 00:00:00 Completed [facility] Pneumococcal Polysaccharide, PPSV23 (PNEUMOVAX) 2020-06-15 00:00:00 Completed [facility] Influenza Virus Vaccine Quad .5 mL IM 6+ MO 2020-06-15 00:00:00 Completed [facility] Pneumococcal Polysaccharide, PPSV23 (PNEUMOVAX) 2020-06-15 00:00:00 Completed [facility] Influenza Virus Vaccine Quad .5 mL IM 6+ MO 2020-06-15 00:00:00 Completed [facility] Pneumococcal Polysaccharide, PPSV23 (PNEUMOVAX) 2020-06-15 00:00:00 Completed [facility] Influenza Virus Vaccine Quad .5 mL IM 6+ MO 2020-06-15 00:00:00 Completed [facility] Pneumococcal Polysaccharide, PPSV23 (PNEUMOVAX) 2020-06-15 00:00:00 Completed [facility] Influenza Virus Vaccine Quad .5 mL IM 6+ MO 2020-06-15 00:00:00 Completed [facility] Pneumococcal Polysaccharide, PPSV23 (PNEUMOVAX) 2020-06-15 00:00:00 Completed [facility] Influenza Virus Vaccine Quad .5 mL IM 6+ MO 2020-06-15 00:00:00 Completed [facility] Pneumococcal Polysaccharide, PPSV23 (PNEUMOVAX) 2020-06-15 00:00:00 Completed [facility] Influenza Virus Vaccine Quad .5 mL IM 6+ MO 2020-06-15 00:00:00 Completed [facility] Pneumococcal Polysaccharide, PPSV23 (PNEUMOVAX) 2020-06-15 00:00:00 Completed [facility] Influenza Virus Vaccine Quad .5 mL IM 6+ MO 2020-06-15 00:00:00 Completed [facility] Pneumococcal Polysaccharide, PPSV23 (PNEUMOVAX) 2020-06-15 00:00:00 Completed [facility] Influenza Virus Vaccine Quad .5 mL IM 6+ MO 2020-06-15 00:00:00 Completed [facility] Pneumococcal Polysaccharide, PPSV23 (PNEUMOVAX) 2020-06-15 00:00:00 Completed [facility] Influenza Virus Vaccine Quad .5 mL IM 6+ MO 2020-06-15 00:00:00 Completed [facility] Pneumococcal Polysaccharide, PPSV23 (PNEUMOVAX) 2020-06-15 00:00:00 Completed [facility] Influenza Virus Vaccine Quad .5 mL IM 6+ MO 2020-06-15 00:00:00 Completed [facility] Pneumococcal Polysaccharide, PPSV23 (PNEUMOVAX) 2020-06-15 00:00:00 Completed [facility] Influenza Virus Vaccine Quad .5 mL IM 6+ MO 2020-06-15 00:00:00 Completed [facility] Pneumococcal Polysaccharide, PPSV23 (PNEUMOVAX) 2020-06-15 00:00:00 Completed [facility] Influenza Virus Vaccine Quad .5 mL IM 6+ MO 2020-06-15 00:00:00 Completed [facility] Pneumococcal Polysaccharide, PPSV23 (PNEUMOVAX) 2020-06-15 00:00:00 Completed [facility] Influenza Virus Vaccine Quad .5 mL IM 6+ MO 2020-06-15 00:00:00 Completed [facility] Pneumococcal Polysaccharide, PPSV23 (PNEUMOVAX) 2020-06-15 00:00:00 Completed [facility] Influenza Virus Vaccine Quad .5 mL IM 6+ MO 2020-06-15 00:00:00 Completed [facility] Pneumococcal Polysaccharide, PPSV23 (PNEUMOVAX) 2020-06-15 00:00:00 Completed [facility] Influenza Virus Vaccine Quad .5 mL IM 6+ MO 2020-06-15 00:00:00 Completed [facility] Pneumococcal Polysaccharide, PPSV23 (PNEUMOVAX) 2020-06-15 00:00:00 Completed [facility] Influenza Virus Vaccine Quad .5 mL IM 6+ MO 2020-06-15 00:00:00 Completed [facility] Pneumococcal Polysaccharide, PPSV23 (PNEUMOVAX) 2020-06-15 00:00:00 Completed [facility] Influenza Virus Vaccine Quad .5 mL IM 6+ MO 2020-06-15 00:00:00 Completed [facility] Pneumococcal Polysaccharide, PPSV23 (PNEUMOVAX) 2020-06-15 00:00:00 Completed [facility] Influenza Virus Vaccine Quad .5 mL IM 6+ MO 2020-06-15 00:00:00 Completed [facility] Pneumococcal Polysaccharide, PPSV23 (PNEUMOVAX) 2020-06-15 00:00:00 Completed [facility] Influenza Virus Vaccine Quad .5 mL IM 6+ MO 2020-06-15 00:00:00 Completed [facility] Pneumococcal Polysaccharide, PPSV23 (PNEUMOVAX) 2020-06-15 00:00:00 Completed [facility] Influenza Virus Vaccine Quad .5 mL IM 6+ MO 2020-06-15 00:00:00 Completed [facility] Pneumococcal Polysaccharide, PPSV23 (PNEUMOVAX) 2020-06-15 00:00:00 Completed [facility] Influenza Virus Vaccine Quad .5 mL IM 6+ MO 2020-06-15 00:00:00 Completed [facility] Pneumococcal Polysaccharide, PPSV23 (PNEUMOVAX) 2020-06-15 00:00:00 Completed [facility] Influenza Virus Vaccine Quad .5 mL IM 6+ MO 2020-06-15 00:00:00 Completed [facility] Pneumococcal Polysaccharide, PPSV23 (PNEUMOVAX) 2020-06-15 00:00:00 Completed [facility] Influenza Virus Vaccine Quad .5 mL IM 6+ MO 2020-06-15 00:00:00 Completed [facility] Pneumococcal Polysaccharide, PPSV23 (PNEUMOVAX) 2020-06-15 00:00:00 Completed [facility] Influenza Virus Vaccine Quad .5 mL IM 6+ MO 2020-06-15 00:00:00 Completed [facility] Pneumococcal Polysaccharide, PPSV23 (PNEUMOVAX) 2020-06-15 00:00:00 Completed [facility] Influenza Virus Vaccine Quad .5 mL IM 6+ MO 2020-06-15 00:00:00 Completed [facility] Pneumococcal Polysaccharide, PPSV23 (PNEUMOVAX) 2020-06-15 00:00:00 Completed [facility] Influenza Virus Vaccine Quad .5 mL IM 6+ MO 2020-06-15 00:00:00 Completed [facility] Pneumococcal Polysaccharide, PPSV23 (PNEUMOVAX) 2020-06-15 00:00:00 Completed [facility] Influenza Virus Vaccine Quad .5 mL IM 6+ MO 2020-06-15 00:00:00 Completed [facility] Pneumococcal Polysaccharide, PPSV23 (PNEUMOVAX) 2020-06-15 00:00:00 Completed [facility] Influenza Virus Vaccine Quad .5 mL IM 6+ MO 2020-06-15 00:00:00 Completed [facility] Pneumococcal Polysaccharide, PPSV23 (PNEUMOVAX) 2020-06-15 00:00:00 Completed [facility] Influenza Virus Vaccine Quad .5 mL IM 6+ MO 2020-06-15 00:00:00 Completed [facility] Pneumococcal Polysaccharide, PPSV23 (PNEUMOVAX) 2020-06-15 00:00:00 Completed [facility] Influenza Virus Vaccine Quad .5 mL IM 6+ MO 2020-06-15 00:00:00 Completed [facility] Pneumococcal Polysaccharide, PPSV23 (PNEUMOVAX) 2020-06-15 00:00:00 Completed [facility] Influenza Virus Vaccine Quad .5 mL IM 6+ MO 2020-06-15 00:00:00 Completed [facility] Pneumococcal Polysaccharide, PPSV23 (PNEUMOVAX) 2020-06-15 00:00:00 Completed [facility] Influenza Virus Vaccine Quad .5 mL IM 6+ MO 2020-06-15 00:00:00 Completed [facility] Pneumococcal Polysaccharide, PPSV23 (PNEUMOVAX) 2020-06-15 00:00:00 Completed [facility] Influenza Virus Vaccine Quad .5 mL IM 6+ MO 2020-06-15 00:00:00 Completed [facility] Pneumococcal Polysaccharide, PPSV23 (PNEUMOVAX) 2020-06-15 00:00:00 Completed [facility] Influenza Virus Vaccine Quad .5 mL IM 6+ MO 2020-06-15 00:00:00 Completed [facility] Pneumococcal Polysaccharide, PPSV23 (PNEUMOVAX) 2020-06-15 00:00:00 Completed [facility] Influenza Virus Vaccine Quad .5 mL IM 6+ MO 2020-06-15 00:00:00 Completed [facility] Pneumococcal Polysaccharide, PPSV23 (PNEUMOVAX) 2020-06-15 00:00:00 Completed [facility] Influenza Virus Vaccine Quad .5 mL IM 6+ MO 2020-06-15 00:00:00 Completed [facility] Pneumococcal Polysaccharide, PPSV23 (PNEUMOVAX) 2020-06-15 00:00:00 Completed [facility] Influenza Virus Vaccine Quad .5 mL IM 6+ MO 2020-06-15 00:00:00 Completed [facility] Pneumococcal Polysaccharide, PPSV23 (PNEUMOVAX) 2020-06-15 00:00:00 Completed [facility] Influenza Virus Vaccine Quad .5 mL IM 6+ MO 2020-06-15 00:00:00 Completed [facility] Pneumococcal Polysaccharide, PPSV23 (PNEUMOVAX) 2020-06-15 00:00:00 Completed [facility] Influenza Virus Vaccine Quad .5 mL IM 6+ MO 2020-06-15 00:00:00 Completed [facility] Pneumococcal Polysaccharide, PPSV23 (PNEUMOVAX) 2020-06-15 00:00:00 [facility] [facility] Quad .5 mL IM 6+ MO 2020-06-15 00:00:00 Completed [facility] Pneumococcal Polysaccharide, PPSV23 (PNEUMOVAX) 2020-06-15 00:00:00 Completed [facility] Influenza Virus Vaccine Quad .5 mL IM 6+ MO 2020-06-15 00:00:00 Completed [facility] Pneumococcal Polysaccharide, PPSV23 (PNEUMOVAX) 2020-06-15 00:00:00 Completed [facility] Influenza Virus Vaccine Quad .5 mL IM 6+ MO 2020-06-15 00:00:00 Completed [facility] Pneumococcal Polysaccharide, PPSV23 (PNEUMOVAX) 2020-06-15 00:00:00 Completed [facility] Influenza Virus Vaccine Quad .5 mL IM 6+ MO 2020-06-15 00:00:00 Completed [facility] Pneumococcal Polysaccharide, PPSV23 (PNEUMOVAX) 2020-06-15 00:00:00 Completed [facility] Influenza Virus Vaccine Quad .5 mL IM 6+ MO 2020-06-15 00:00:00 Completed [facility] Pneumococcal Polysaccharide, PPSV23 (PNEUMOVAX) 2020-06-15 00:00:00 Completed [facility] Influenza Virus Vaccine Quad .5 mL IM 6+ MO 2020-06-15 00:00:00 Completed [facility] Pneumococcal Polysaccharide, PPSV23 (PNEUMOVAX) 2020-06-15 00:00:00 Completed [facility] Influenza Virus Vaccine Quad .5 mL IM 6+ MO 2020-06-15 00:00:00 Completed [facility] Pneumococcal Polysaccharide, PPSV23 (PNEUMOVAX) 2020-06-15 00:00:00 Completed [facility] Influenza Virus Vaccine Quad .5 mL IM 6+ MO 2020-06-15 00:00:00 Completed [facility] Pneumococcal Polysaccharide, PPSV23 (PNEUMOVAX) 2020-06-15 00:00:00 Completed [facility] Influenza Virus Vaccine Quad .5 mL IM 6+ MO 2020-06-15 00:00:00 Completed [facility] Pneumococcal Polysaccharide, PPSV23 (PNEUMOVAX) 2020-06-15 00:00:00 Completed [facility] Influenza Virus Vaccine Quad .5 mL IM 6+ MO 2020-06-15 00:00:00 Completed [facility] Pneumococcal Polysaccharide, PPSV23 (PNEUMOVAX) 2020-06-15 00:00:00 Completed [facility] Influenza Virus Vaccine Quad .5 mL IM 6+ MO 2020-06-15 00:00:00 Completed [facility] Pneumococcal Polysaccharide, PPSV23 (PNEUMOVAX) 2020-06-15 00:00:00 Completed [facility] Influenza Virus Vaccine Quad .5 mL IM 6+ MO 2020-06-15 00:00:00 Completed [facility] Pneumococcal Polysaccharide, PPSV23 (PNEUMOVAX) 2020-06-15 00:00:00 Completed [facility] Influenza Virus Vaccine Quad .5 mL IM 6+ MO 2020-06-15 00:00:00 Completed [facility] Pneumococcal Polysaccharide, PPSV23 (PNEUMOVAX) 2020-06-15 00:00:00 Completed [facility] Influenza Virus Vaccine Quad .5 mL IM 6+ MO 2020-06-15 00:00:00 Completed [facility] Pneumococcal Polysaccharide, PPSV23 (PNEUMOVAX) 2020-06-15 00:00:00 Completed [facility] Influenza Virus Vaccine Quad .5 mL IM 6+ MO 2020-06-15 00:00:00 Completed [facility] Pneumococcal Polysaccharide, PPSV23 (PNEUMOVAX) 2020-06-15 00:00:00 Completed [facility] Influenza Virus Vaccine Quad .5 mL IM 6+ MO 2020-06-15 00:00:00 Completed [facility] Pneumococcal Polysaccharide, PPSV23 (PNEUMOVAX) 2020-06-15 00:00:00 Completed [facility] Influenza Virus Vaccine Quad .5 mL IM 6+ MO 2020-06-15 00:00:00 Completed [facility] Pneumococcal Polysaccharide, PPSV23 (PNEUMOVAX) 2020-06-15 00:00:00 Completed [facility] Influenza Virus Vaccine Quad .5 mL IM 6+ MO 2020-06-15 00:00:00 Completed [facility] Pneumococcal Polysaccharide, PPSV23 (PNEUMOVAX) 2020-06-15 00:00:00 Completed [facility] Influenza Virus Vaccine Quad .5 mL IM 6+ MO 2020-06-15 00:00:00 Completed [facility] Pneumococcal Polysaccharide, PPSV23 (PNEUMOVAX) 2020-06-15 00:00:00 Completed [facility] Influenza Virus Vaccine Quad .5 mL IM 6+ MO 2020-06-15 00:00:00 Completed [facility] Pneumococcal Polysaccharide, PPSV23 (PNEUMOVAX) 2020-06-15 00:00:00 Completed [facility] Influenza Virus Vaccine Quad .5 mL IM 6+ MO 2020-06-15 00:00:00 Completed [facility] Pneumococcal Polysaccharide, PPSV23 (PNEUMOVAX) 2020-06-15 00:00:00 Completed [facility] Influenza Virus Vaccine Quad .5 mL IM 6+ MO 2020-06-15 00:00:00 Completed [facility] Pneumococcal Polysaccharide, PPSV23 (PNEUMOVAX) 2020-06-15 00:00:00 Completed [facility] Influenza Virus Vaccine Quad .5 mL IM 6+ MO 2020-06-15 00:00:00 Completed [facility] Pneumococcal Polysaccharide, PPSV23 (PNEUMOVAX) 2020-06-15 00:00:00 Completed [facility] Influenza Virus Vaccine Quad .5 mL IM 6+ MO 2020-06-15 00:00:00 Completed [facility] Pneumococcal Polysaccharide, PPSV23 (PNEUMOVAX) 2020-06-15 00:00:00 Completed [facility] Influenza Virus Vaccine Quad .5 mL IM 6+ MO 2020-06-15 00:00:00 Completed [facility] Pneumococcal Polysaccharide, PPSV23 (PNEUMOVAX) 2020-06-15 00:00:00 Completed [facility] Influenza Virus Vaccine Quad .5 mL IM 6+ MO 2020-06-15 00:00:00 Completed [facility] Pneumococcal Polysaccharide, PPSV23 (PNEUMOVAX) 2020-06-15 00:00:00 Completed [facility] Influenza Virus Vaccine Quad .5 mL IM 6+ MO 2020-06-15 00:00:00 Completed [facility] Pneumococcal Polysaccharide, PPSV23 (PNEUMOVAX) 2020-06-15 00:00:00 Completed [facility] Influenza Virus Vaccine Quad .5 mL IM 6+ MO 2020-06-15 00:00:00 Completed [facility] Pneumococcal Polysaccharide, PPSV23 (PNEUMOVAX) 2020-06-15 00:00:00 Completed [facility] Influenza Virus Vaccine Quad .5 mL IM 6+ MO 2020-06-15 00:00:00 Completed [facility] Pneumococcal Polysaccharide, PPSV23 (PNEUMOVAX) 2020-06-15 00:00:00 Completed [facility] Influenza Virus Vaccine Quad .5 mL IM 6+ MO 2020-06-15 00:00:00 Completed [facility] Pneumococcal Polysaccharide, PPSV23 (PNEUMOVAX) 2020-06-15 00:00:00 Completed [facility] Influenza Virus Vaccine Quad .5 mL IM 6+ MO 2020-06-15 00:00:00 Completed [facility] Pneumococcal Polysaccharide, PPSV23 (PNEUMOVAX) 2020-06-15 00:00:00 Completed [facility] Influenza Virus Vaccine Quad .5 mL IM 6+ MO 2020-06-15 00:00:00 Completed [facility] Pneumococcal Polysaccharide, PPSV23 (PNEUMOVAX) 2020-06-15 00:00:00 Completed [facility] Influenza Virus Vaccine Quad .5 mL IM 6+ MO 2020-06-15 00:00:00 Completed [facility] Pneumococcal Polysaccharide, PPSV23 (PNEUMOVAX) 2020-06-15 00:00:00 Completed [facility] Influenza Virus Vaccine Quad .5 mL IM 6+ MO 2020-06-15 00:00:00 Completed [facility] Pneumococcal Polysaccharide, PPSV23 (PNEUMOVAX) 2020-06-15 00:00:00 Completed [facility] Influenza Virus Vaccine Quad .5 mL IM 6+ MO 2020-06-15 00:00:00 Completed [facility] Pneumococcal Polysaccharide, PPSV23 (PNEUMOVAX) 2020-06-15 00:00:00 Completed [facility] Influenza Virus Vaccine Quad .5 mL IM 6+ MO 2020-06-15 00:00:00 Completed [facility] Pneumococcal Polysaccharide, PPSV23 (PNEUMOVAX) 2020-06-15 00:00:00 Completed [facility] Influenza Virus Vaccine Quad .5 mL IM 6+ MO 2020-06-15 00:00:00 Completed [facility] Pneumococcal Polysaccharide, PPSV23 (PNEUMOVAX) 2020-06-15 00:00:00 Completed [facility] Influenza Virus Vaccine Quad .5 mL IM 6+ MO 2020-06-15 00:00:00 Completed [facility] Pneumococcal Polysaccharide, PPSV23 (PNEUMOVAX) 2020-06-15 00:00:00 Completed [facility] Influenza Virus Vaccine Quad .5 mL IM 6+ MO 2020-06-15 00:00:00 Completed [facility] Pneumococcal Polysaccharide, PPSV23 (PNEUMOVAX) 2020-06-15 00:00:00 Completed [facility] Influenza Virus Vaccine Quad .5 mL IM 6+ MO 2020-06-15 00:00:00 Completed [facility] Pneumococcal Polysaccharide, PPSV23 (PNEUMOVAX) 2020-06-15 00:00:00 Completed [facility] Influenza Virus Vaccine Quad .5 mL IM 6+ MO 2020-06-15 00:00:00 Completed [facility] Pneumococcal Polysaccharide, PPSV23 (PNEUMOVAX) 2020-06-15 00:00:00 Completed [facility] Influenza Virus Vaccine Quad .5 mL IM 6+ MO 2020-06-15 00:00:00 Completed [facility] Pneumococcal Polysaccharide, PPSV23 (PNEUMOVAX) 2020-06-15 00:00:00 Completed [facility] Influenza Virus Vaccine Quad .5 mL IM 6+ MO 2020-06-15 00:00:00 Completed [facility] Pneumococcal Polysaccharide, PPSV23 (PNEUMOVAX) 2020-06-15 00:00:00 Completed [facility] Influenza Virus Vaccine Quad .5 mL IM 6+ MO 2020-06-15 00:00:00 Completed [facility] Pneumococcal Polysaccharide, PPSV23 (PNEUMOVAX) 2020-06-15 00:00:00 Completed [facility] Influenza Virus Vaccine Quad .5 mL IM 6+ MO 2020-06-15 00:00:00 Completed [facility] Pneumococcal Polysaccharide, PPSV23 (PNEUMOVAX) 2020-06-15 00:00:00 Completed [facility] Influenza Virus Vaccine Quad .5 mL IM 6+ MO 2020-06-15 00:00:00 Completed [facility] Pneumococcal Polysaccharide, PPSV23 (PNEUMOVAX) 2020-06-15 00:00:00 Completed [facility] Influenza Virus Vaccine Quad .5 mL IM 6+ MO 2020-06-15 00:00:00 Completed [facility] Pneumococcal Polysaccharide, PPSV23 (PNEUMOVAX) 2020-06-15 00:00:00 Completed [facility] Influenza Virus Vaccine Quad .5 mL IM 6+ MO 2020-06-15 00:00:00 Completed [facility] Pneumococcal Polysaccharide, PPSV23 (PNEUMOVAX) 2020-06-15 00:00:00 Completed [facility] Influenza Virus Vaccine Quad .5 mL IM 6+ MO 2020-06-15 00:00:00 Completed [facility] Pneumococcal Polysaccharide, PPSV23 (PNEUMOVAX) 2020-06-15 00:00:00 Completed [facility] Influenza Virus Vaccine Quad .5 mL IM 6+ MO 2020-06-15 00:00:00 Completed [facility] Pneumococcal Polysaccharide, PPSV23 (PNEUMOVAX) 2020-06-15 00:00:00 Completed [facility] Influenza Virus Vaccine Quad .5 mL IM 6+ MO 2020-06-15 00:00:00 Completed [facility] Pneumococcal Polysaccharide, PPSV23 (PNEUMOVAX) 2020-06-15 00:00:00 Completed [facility] Influenza Virus Vaccine Quad .5 mL IM 6+ MO 2020-06-15 00:00:00 Completed [facility] Pneumococcal Polysaccharide, PPSV23 (PNEUMOVAX) 2020-06-15 00:00:00 Completed [facility] Influenza Virus Vaccine Quad .5 mL IM 6+ MO 2020-06-15 00:00:00 Completed [facility] Pneumococcal Polysaccharide, PPSV23 (PNEUMOVAX) 2020-06-15 00:00:00 Completed [facility] Influenza Virus Vaccine Quad .5 mL IM 6+ MO 2020-06-15 00:00:00 Completed [facility] Pneumococcal Polysaccharide, PPSV23 (PNEUMOVAX) 2020-06-15 00:00:00 Completed [facility] Influenza Virus Vaccine Quad .5 mL IM 6+ MO 2020-06-15 00:00:00 Completed [facility] Pneumococcal Polysaccharide, PPSV23 (PNEUMOVAX) 2020-06-15 00:00:00 Completed [facility] Influenza Virus Vaccine Quad .5 mL IM 6+ MO 2020-06-15 00:00:00 Completed [facility] Pneumococcal Polysaccharide, PPSV23 (PNEUMOVAX) 2020-06-15 00:00:00 Completed [facility] Influenza Virus Vaccine Quad .5 mL IM 6+ MO 2020-06-15 00:00:00 Completed [facility] Pneumococcal Polysaccharide, PPSV23 (PNEUMOVAX) 2020-06-15 00:00:00 Completed [facility] Influenza Virus Vaccine Quad .5 mL IM 6+ MO 2020-06-15 00:00:00 Completed [facility] Pneumococcal Polysaccharide, PPSV23 (PNEUMOVAX) 2020-06-15 00:00:00 Completed [facility] Influenza Virus Vaccine Quad .5 mL IM 6+ MO 2020-06-15 00:00:00 Completed [facility] Pneumococcal Polysaccharide, PPSV23 (PNEUMOVAX) 2020-06-15 00:00:00 Completed [facility] Influenza Virus Vaccine Quad .5 mL IM 6+ MO 2020-06-15 00:00:00 Completed [facility] Pneumococcal Polysaccharide, PPSV23 (PNEUMOVAX) 2020-06-15 00:00:00 Completed [facility] Influenza Virus Vaccine Quad .5 mL IM 6+ MO 2020-06-15 00:00:00 Completed [facility] Pneumococcal Polysaccharide, PPSV23 (PNEUMOVAX) 2020-06-15 00:00:00 Completed [facility] Influenza Virus Vaccine Quad .5 mL IM 6+ MO 2020-06-15 00:00:00 Completed [facility] Pneumococcal Polysaccharide, PPSV23 (PNEUMOVAX) 2020-06-15 00:00:00 Completed [facility] Influenza Virus Vaccine Quad .5 mL IM 6+ MO 2020-06-15 00:00:00 Completed [facility] Pneumococcal Polysaccharide, PPSV23 (PNEUMOVAX) 2020-06-15 00:00:00 Completed [facility] Influenza Virus Vaccine Quad .5 mL IM 6+ MO 2020-06-15 00:00:00 Completed [facility] Pneumococcal Polysaccharide, PPSV23 (PNEUMOVAX) 2020-06-15 00:00:00 Completed [facility] Influenza Virus Vaccine Quad .5 mL IM 6+ MO 2020-06-15 00:00:00 Completed [facility] Pneumococcal Polysaccharide, PPSV23 (PNEUMOVAX) 2020-06-15 00:00:00 Completed [facility] Influenza Virus Vaccine Quad .5 mL IM 6+ MO 2020-06-15 00:00:00 Completed [facility] Pneumococcal Polysaccharide, PPSV23 (PNEUMOVAX) 2020-06-15 00:00:00 Completed [facility] Influenza Virus Vaccine Quad .5 mL IM 6+ MO 2020-06-15 00:00:00 Completed [facility] Pneumococcal Polysaccharide, PPSV23 (PNEUMOVAX) 2020-06-15 00:00:00 Completed [facility] Influenza Virus Vaccine Quad .5 mL IM 6+ MO 2020-06-15 00:00:00 Completed [facility] Pneumococcal Polysaccharide, PPSV23 (PNEUMOVAX) 2020-06-15 00:00:00 Completed [facility] Influenza Virus Vaccine Quad .5 mL IM 6+ MO 2020-06-15 00:00:00 Completed [facility] Pneumococcal Polysaccharide, PPSV23 (PNEUMOVAX) 2020-06-15 00:00:00 Completed [facility] Influenza Virus Vaccine Quad .5 mL IM 6+ MO 2020-06-15 00:00:00 Completed [facility] Pneumococcal Polysaccharide, PPSV23 (PNEUMOVAX) 2020-06-15 00:00:00 Completed [facility] Influenza Virus Vaccine Quad .5 mL IM 6+ MO 2020-06-15 00:00:00 Completed [facility] Pneumococcal Polysaccharide, PPSV23 (PNEUMOVAX) 2020-06-15 00:00:00 Completed [facility] Influenza Virus Vaccine Quad .5 mL IM 6+ MO 2020-06-15 00:00:00 Completed [facility] Pneumococcal Polysaccharide, PPSV23 (PNEUMOVAX) 2020-06-15 00:00:00 Completed [facility] Influenza Virus Vaccine Quad .5 mL IM 6+ MO 2020-06-15 00:00:00 Completed [facility] Pneumococcal Polysaccharide, PPSV23 (PNEUMOVAX) 2020-06-15 00:00:00 Completed [facility] Influenza Virus Vaccine Quad .5 mL IM 6+ MO 2020-06-15 00:00:00 Completed [facility] Pneumococcal Polysaccharide, PPSV23 (PNEUMOVAX) 2020-06-15 00:00:00 Completed [facility] Influenza Virus Vaccine Quad .5 mL IM 6+ MO 2020-06-15 00:00:00 Completed [facility] Pneumococcal Polysaccharide, PPSV23 (PNEUMOVAX) 2020-06-15 00:00:00 Completed [facility] Influenza Virus Vaccine Quad .5 mL IM 6+ MO 2020-06-15 00:00:00 Completed [facility] Pneumococcal Polysaccharide, PPSV23 (PNEUMOVAX) 2020-06-15 00:00:00 Completed [facility] Influenza Virus Vaccine Quad .5 mL IM 6+ MO 2020-06-15 00:00:00 Completed [facility] Pneumococcal Polysaccharide, PPSV23 (PNEUMOVAX) 2020-06-15 00:00:00 Completed [facility] Influenza Virus Vaccine Quad .5 mL IM 6+ MO 2020-06-15 00:00:00 Completed [facility] Pneumococcal Polysaccharide, PPSV23 (PNEUMOVAX) 2020-06-15 00:00:00 Completed [facility] Influenza Virus Vaccine Quad .5 mL IM 6+ MO 2020-06-15 00:00:00 Completed [facility] Pneumococcal Polysaccharide, PPSV23 (PNEUMOVAX) 2020-06-15 00:00:00 Completed [facility] Influenza Virus Vaccine Quad .5 mL IM 6+ MO 2020-06-15 00:00:00 Completed [facility] Pneumococcal Polysaccharide, PPSV23 (PNEUMOVAX) 2020-06-15 00:00:00 Completed [facility] Influenza Virus Vaccine Quad .5 mL IM 6+ MO 2020-06-15 00:00:00 Completed [facility] Pneumococcal Polysaccharide, PPSV23 (PNEUMOVAX) 2020-06-15 00:00:00 Completed [facility] Influenza Virus Vaccine Quad .5 mL IM 6+ MO 2020-06-15 00:00:00 Completed [facility] Pneumococcal Polysaccharide, PPSV23 (PNEUMOVAX) 2020-06-15 00:00:00 Completed [facility] Influenza Virus Vaccine Quad .5 mL IM 6+ MO 2020-06-15 00:00:00 Completed [facility] Pneumococcal Polysaccharide, PPSV23 (PNEUMOVAX) 2020-06-15 00:00:00 Completed [facility] Influenza Virus Vaccine Quad .5 mL IM 6+ MO 2020-06-15 00:00:00 Completed [facility] Pneumococcal Polysaccharide, PPSV23 (PNEUMOVAX) 2020-06-15 00:00:00 Completed [facility] Influenza Virus Vaccine Quad .5 mL IM 6+ MO 2020-06-15 00:00:00 Completed [facility] Pneumococcal Polysaccharide, PPSV23 (PNEUMOVAX) 2020-06-15 00:00:00 Completed [facility] Influenza Virus Vaccine Quad .5 mL IM 6+ MO 2020-06-15 00:00:00 Completed [facility] Pneumococcal Polysaccharide, PPSV23 (PNEUMOVAX) 2020-06-15 00:00:00 Completed [facility] Influenza Virus Vaccine Quad .5 mL IM 6+ MO 2020-06-15 00:00:00 Completed [facility] Pneumococcal Polysaccharide, PPSV23 (PNEUMOVAX) 2020-06-15 00:00:00 Completed [facility] Influenza Virus Vaccine Quad .5 mL IM 6+ MO 2020-06-15 00:00:00 Completed [facility] Pneumococcal Polysaccharide, PPSV23 (PNEUMOVAX) 2020-06-15 00:00:00 Completed [facility] Influenza Virus Vaccine Quad .5 mL IM 6+ MO 2020-06-15 00:00:00 Completed [facility] Pneumococcal Polysaccharide, PPSV23 (PNEUMOVAX) 2020-06-15 00:00:00 Completed [facility] Influenza Virus Vaccine Quad .5 mL IM 6+ MO 2020-06-15 00:00:00 Completed [facility] Pneumococcal Polysaccharide, PPSV23 (PNEUMOVAX) 2020-06-15 00:00:00 Completed [facility] Influenza Virus Vaccine Quad .5 mL IM 6+ MO 2020-06-15 00:00:00 Completed [facility] Pneumococcal Polysaccharide, PPSV23 (PNEUMOVAX) 2020-06-15 00:00:00 Completed [facility] Influenza Virus Vaccine Quad .5 mL IM 6+ MO 2020-06-15 00:00:00 Completed [facility] Pneumococcal Polysaccharide, PPSV23 (PNEUMOVAX) 2020-06-15 00:00:00 Completed [facility] Influenza Virus Vaccine Quad .5 mL IM 6+ MO 2020-06-15 00:00:00 Completed [facility] Pneumococcal Polysaccharide, PPSV23 (PNEUMOVAX) 2020-06-15 00:00:00 Completed [facility] Influenza Virus Vaccine Quad .5 mL IM 6+ MO 2020-06-15 00:00:00 Completed [facility] Pneumococcal Polysaccharide, PPSV23 (PNEUMOVAX) 2020-06-15 00:00:00 Completed [facility] Influenza Virus Vaccine Quad .5 mL IM 6+ MO 2020-06-15 00:00:00 Completed [facility] Pneumococcal Polysaccharide, PPSV23 (PNEUMOVAX) 2020-06-15 00:00:00 Completed [facility] Influenza Virus Vaccine Quad .5 mL IM 6+ MO 2020-06-15 00:00:00 Completed [facility] Pneumococcal Polysaccharide, PPSV23 (PNEUMOVAX) 2020-06-15 00:00:00 Completed [facility] Influenza Virus Vaccine Quad .5 mL IM 6+ MO 2020-06-15 00:00:00 Completed [facility] Pneumococcal Polysaccharide, PPSV23 (PNEUMOVAX) 2020-06-15 00:00:00 Completed [facility] Influenza Virus Vaccine Quad .5 mL IM 6+ MO 2020-06-15 00:00:00 Completed [facility] Pneumococcal Polysaccharide, PPSV23 (PNEUMOVAX) 2020-06-15 00:00:00 Completed [facility] Influenza Virus Vaccine Quad .5 mL IM 6+ MO 2020-06-15 00:00:00 Completed [facility] Pneumococcal Polysaccharide, PPSV23 (PNEUMOVAX) 2020-06-15 00:00:00 Completed [facility] Influenza Virus Vaccine Quad .5 mL IM 6+ MO 2020-06-15 00:00:00 Completed [facility] Pneumococcal Polysaccharide, PPSV23 (PNEUMOVAX) 2020-06-15 00:00:00 Completed [facility] Influenza Virus Vaccine Quad .5 mL IM 6+ MO 2020-06-15 00:00:00 Completed [facility] Pneumococcal Polysaccharide, PPSV23 (PNEUMOVAX) 2020-06-15 00:00:00 Completed [facility] Influenza Virus Vaccine Quad .5 mL IM 6+ MO 2020-06-15 00:00:00 Completed [facility] Pneumococcal Polysaccharide, PPSV23 (PNEUMOVAX) 2020-06-15 00:00:00 Completed [facility] Influenza Virus Vaccine Quad .5 mL IM 6+ MO 2020-06-15 00:00:00 Completed [facility] Pneumococcal Polysaccharide, PPSV23 (PNEUMOVAX) 2020-06-15 00:00:00 Completed [facility] Influenza Virus Vaccine Quad .5 mL IM 6+ MO 2020-06-15 00:00:00 Completed [facility] Pneumococcal Polysaccharide, PPSV23 (PNEUMOVAX) 2020-06-15 00:00:00 Completed [facility] Influenza Virus Vaccine Quad .5 mL IM 6+ MO 2020-06-15 00:00:00 Completed [facility] Pneumococcal Polysaccharide, PPSV23 (PNEUMOVAX) 2020-06-15 00:00:00 Completed [facility] Influenza Virus Vaccine Quad .5 mL IM 6+ MO 2020-06-15 00:00:00 Completed [facility] Pneumococcal Polysaccharide, PPSV23 (PNEUMOVAX) 2020-06-15 00:00:00 Completed [facility] Influenza Virus Vaccine Quad .5 mL IM 6+ MO 2020-06-15 00:00:00 Completed [facility] Pneumococcal Polysaccharide, PPSV23 (PNEUMOVAX) 2020-06-15 00:00:00 Completed [facility] Influenza Virus Vaccine Quad .5 mL IM 6+ MO 2020-06-15 00:00:00 Completed [facility] Pneumococcal Polysaccharide, PPSV23 (PNEUMOVAX) 2020-06-15 00:00:00 Completed [facility] Influenza Virus Vaccine Quad .5 mL IM 6+ MO 2020-06-15 00:00:00 Completed [facility] Pneumococcal Polysaccharide, PPSV23 (PNEUMOVAX) 2020-06-15 00:00:00 Completed [facility] Influenza Virus Vaccine Quad .5 mL IM 6+ MO 2020-06-15 00:00:00 Completed [facility] Pneumococcal Polysaccharide, PPSV23 (PNEUMOVAX) 2020-06-15 00:00:00 Completed [facility] Influenza Virus Vaccine Quad .5 mL IM 6+ MO 2020-06-15 00:00:00 Completed [facility] Pneumococcal Polysaccharide, PPSV23 (PNEUMOVAX) 2020-06-15 00:00:00 Completed [facility] Influenza Virus Vaccine Quad .5 mL IM 6+ MO 2020-06-15 00:00:00 Completed [facility] Pneumococcal Polysaccharide, PPSV23 (PNEUMOVAX) 2020-06-15 00:00:00 Completed [facility] Influenza Virus Vaccine Quad .5 mL IM 6+ MO 2020-06-15 00:00:00 Completed [facility] Pneumococcal Polysaccharide, PPSV23 (PNEUMOVAX) 2020-06-15 00:00:00 Completed [facility] Influenza Virus Vaccine Quad .5 mL IM 6+ MO 2020-06-15 00:00:00 Completed [facility] Pneumococcal Polysaccharide, PPSV23 (PNEUMOVAX) 2020-06-15 00:00:00 Completed [facility] Influenza Virus Vaccine Quad .5 mL IM 6+ MO 2020-06-15 00:00:00 Completed [facility] Pneumococcal Polysaccharide, PPSV23 (PNEUMOVAX) 2020-06-15 00:00:00 Completed [facility] Influenza Virus Vaccine Quad .5 mL IM 6+ MO 2020-06-15 00:00:00 Completed [facility] Pneumococcal Polysaccharide, PPSV23 (PNEUMOVAX) 2020-06-15 00:00:00 Completed [facility] Influenza Virus Vaccine Quad .5 mL IM 6+ MO 2020-06-15 00:00:00 Completed [facility] Pneumococcal Polysaccharide, PPSV23 (PNEUMOVAX) 2020-06-15 00:00:00 Completed [facility] Influenza Virus Vaccine Quad .5 mL IM 6+ MO 2020-06-15 00:00:00 Completed [facility] Pneumococcal Polysaccharide, PPSV23 (PNEUMOVAX) 2020-06-15 00:00:00 Completed [facility] Influenza Virus Vaccine Quad .5 mL IM 6+ MO 2020-06-15 00:00:00 Completed [facility] Pneumococcal Polysaccharide, PPSV23 (PNEUMOVAX) 2020-06-15 00:00:00 Completed [facility] Influenza Virus Vaccine Quad .5 mL IM 6+ MO 2020-06-15 00:00:00 Completed [facility] Pneumococcal Polysaccharide, PPSV23 (PNEUMOVAX) 2020-06-15 00:00:00 Completed [facility] Influenza Virus Vaccine Quad .5 mL IM 6+ MO 2020-06-15 00:00:00 Completed [facility] Pneumococcal Polysaccharide, PPSV23 (PNEUMOVAX) 2020-06-15 00:00:00 Completed [facility] Influenza Virus Vaccine Quad .5 mL IM 6+ MO 2020-06-15 00:00:00 Completed [facility] Pneumococcal Polysaccharide, PPSV23 (PNEUMOVAX) 2020-06-15 00:00:00 Completed [facility] Influenza Virus Vaccine Quad .5 mL IM 6+ MO 2020-06-15 00:00:00 Completed [facility] Pneumococcal Polysaccharide, PPSV23 (PNEUMOVAX) 2020-06-15 00:00:00 Completed [facility] Influenza Virus Vaccine Quad .5 mL IM 6+ MO 2020-06-15 00:00:00 Completed [facility] Pneumococcal Polysaccharide, PPSV23 (PNEUMOVAX) 2020-06-15 00:00:00 Completed [facility] Influenza Virus Vaccine Quad .5 mL IM 6+ MO 2020-06-15 00:00:00 Completed [facility] Pneumococcal Polysaccharide, PPSV23 (PNEUMOVAX) 2020-06-15 00:00:00 Completed [facility] Influenza Virus Vaccine Quad .5 mL IM 6+ MO 2020-06-15 00:00:00 Completed [facility] Pneumococcal Polysaccharide, PPSV23 (PNEUMOVAX) 2020-06-15 00:00:00 Completed [facility] Influenza Virus Vaccine Quad .5 mL IM 6+ MO 2020-06-15 00:00:00 Completed [facility] Pneumococcal Polysaccharide, PPSV23 (PNEUMOVAX) 2020-06-15 00:00:00 Completed [facility] Influenza Virus Vaccine Quad .5 mL IM 6+ MO 2020-06-15 00:00:00 Completed [facility] Pneumococcal Polysaccharide, PPSV23 (PNEUMOVAX) 2020-06-15 00:00:00 Completed [facility] Influenza Virus Vaccine Quad .5 mL IM 6+ MO 2020-06-15 00:00:00 Completed [facility] Pneumococcal Polysaccharide, PPSV23 (PNEUMOVAX) 2020-06-15 00:00:00 Completed [facility] Influenza Virus Vaccine Quad .5 mL IM 6+ MO 2020-06-15 00:00:00 Completed [facility] Pneumococcal Polysaccharide, PPSV23 (PNEUMOVAX) 2020-06-15 00:00:00 Completed [facility] Influenza Virus Vaccine Quad .5 mL IM 6+ MO 2020-06-15 00:00:00 Completed [facility] Pneumococcal Polysaccharide, PPSV23 (PNEUMOVAX) 2020-06-15 00:00:00 Completed [facility] Influenza Virus Vaccine Quad .5 mL IM 6+ MO 2020-06-15 00:00:00 Completed [facility] Pneumococcal Polysaccharide, PPSV23 (PNEUMOVAX) 2020-06-15 00:00:00 Completed [facility] Influenza Virus Vaccine Quad .5 mL IM 6+ MO 2020-06-15 00:00:00 Completed [facility] Pneumococcal Polysaccharide, PPSV23 (PNEUMOVAX) 2020-06-15 00:00:00 Completed [facility] Influenza Virus Vaccine Quad .5 mL IM 6+ MO 2020-06-15 00:00:00 Completed [facility] Pneumococcal Polysaccharide, PPSV23 (PNEUMOVAX) 2020-06-15 00:00:00 Completed [facility] Influenza Virus Vaccine Quad .5 mL IM 6+ MO 2020-06-15 00:00:00 Completed [facility] Pneumococcal Polysaccharide, PPSV23 (PNEUMOVAX) 2020-06-15 00:00:00 Completed [facility] Influenza Virus Vaccine Quad .5 mL IM 6+ MO 2020-06-15 00:00:00 Completed [facility] Pneumococcal Polysaccharide, PPSV23 (PNEUMOVAX) 2020-06-15 00:00:00 Completed [facility] Influenza Virus Vaccine Quad .5 mL IM 6+ MO 2020-06-15 00:00:00 Completed [facility] Pneumococcal Polysaccharide, PPSV23 (PNEUMOVAX) 2020-06-15 00:00:00 Completed [facility] Influenza Virus Vaccine Quad .5 mL IM 6+ MO 2020-06-15 00:00:00 Completed [facility] Pneumococcal Polysaccharide, PPSV23 (PNEUMOVAX) 2020-06-15 00:00:00 Completed [facility] Influenza Virus Vaccine Quad .5 mL IM 6+ MO (FLUZONE/FLULAVAL/F LUARIX) 2020-06-15 00:00:00 Completed [facility] Pneumococcal Polysaccharide, PPSV23 (PNEUMOVAX) 2020-06-15 00:00:00 Completed [facility] Influenza Virus Vaccine Quad .5 mL IM 6+ MO (FLUZONE/FLULAVAL/F LUARIX) 2020-06-15 00:00:00 Completed [facility] Pneumococcal Polysaccharide, PPSV23 (PNEUMOVAX) 2020-06-15 00:00:00 Completed [facility] Influenza Virus Vaccine Quad .5 mL IM 6+ MO (FLUZONE/FLULAVAL/F LUARIX) 2020-06-15 00:00:00 Completed [facility] Pneumococcal Polysaccharide, PPSV23 (PNEUMOVAX) 2020-06-15 00:00:00 Completed [facility] Influenza Virus Vaccine Quad .5 mL IM 6+ MO (FLUZONE/FLULAVAL/F LUARIX) 2020-06-15 00:00:00 Completed [facility] Pneumococcal Polysaccharide, PPSV23 (PNEUMOVAX) 2020-06-15 00:00:00 Completed [facility] Influenza Virus Vaccine Quad .5 mL IM 6+ MO (FLUZONE/FLULAVAL/F LUARIX) 2020-06-15 00:00:00 Completed [facility] Pneumococcal Polysaccharide, PPSV23 (PNEUMOVAX) 2020-06-15 00:00:00 Completed [facility] Influenza Virus Vaccine Quad .5 mL IM 6+ MO (FLUZONE/FLULAVAL/F LUARIX) 2020-06-15 00:00:00 Completed [facility] Pneumococcal Polysaccharide, PPSV23 (PNEUMOVAX) 2020-06-15 00:00:00 Completed [facility] Influenza Virus Vaccine Quad .5 mL IM 6+ MO (FLUZONE/FLULAVAL/F LUARIX) 2020-06-15 00:00:00 Completed [facility] Pneumococcal Polysaccharide, PPSV23 (PNEUMOVAX) Unknown Completed [facility] Influenza Virus Vaccine Quad .5 mL IM 6+ MO (FLUZONE/FLULAVAL/F LUARIX) Unknown Completed [facility] SARS-COV-2 COVID-19 MODERNA 12+ YRS VACCINE Unknown Completed [facility] SARS-COV-2 COVID-19 MODERNA 12+ YRS VACCINE Unknown Completed [facility] SARS-COV-2 COVID-19 MODERNA 0.25ML BOOSTER VACCINE Unknown Completed [facility] Influenza Virus Vaccine Recomb Quad IM, Preserv and ABX Free 18-64 YRS Unknown Completed [facility] Pneumococcal Polysaccharide, PPSV23 (PNEUMOVAX) Unknown Completed [facility] Influenza Virus Vaccine Quad .5 mL IM 6+ MO (FLUZONE/FLULAVAL/F LUARIX) Unknown Completed [facility] SARS-COV-2 COVID-19 MODERNA 12+ YRS VACCINE Unknown Completed [facility] SARS-COV-2 COVID-19 MODERNA 12+ YRS VACCINE Unknown Completed [facility] SARS-COV-2 COVID-19 MODERNA 0.25ML BOOSTER VACCINE Unknown Completed [facility] Influenza Virus Vaccine Recomb Quad IM, Preserv and ABX Free 18-64 YRS Unknown Completed [facility] Pneumococcal Polysaccharide, PPSV23 (PNEUMOVAX) Unknown Completed [facility] Influenza Virus Vaccine Quad .5 mL IM 6+ MO (FLUZONE/FLULAVAL/F LUARIX) Unknown Completed [facility] SARS-COV-2 COVID-19 MODERNA 12+ YRS VACCINE Unknown Completed [facility] SARS-COV-2 COVID-19 MODERNA 12+ YRS VACCINE Unknown Completed [facility] SARS-COV-2 COVID-19 MODERNA 0.25ML BOOSTER VACCINE Unknown Completed [facility] Influenza Virus Vaccine Recomb Quad IM, Preserv and ABX Free 18-64 YRS Unknown Completed [facility] Pneumococcal Polysaccharide, PPSV23 (PNEUMOVAX) Unknown Completed [facility] Influenza Virus Vaccine Quad .5 mL IM 6+ MO (FLUZONE/FLULAVAL/F LUARIX) Unknown Completed [facility] SARS-COV-2 COVID-19 MODERNA 12+ YRS VACCINE Unknown Completed [facility] SARS-COV-2 COVID-19 MODERNA 12+ YRS VACCINE Unknown Completed [facility] SARS-COV-2 COVID-19 MODERNA 0.25ML BOOSTER VACCINE Unknown Completed [facility] Influenza Virus Vaccine Recomb Quad IM, Preserv and ABX Free 18-64 YRS Unknown Completed [facility] Pneumococcal Polysaccharide, PPSV23 (PNEUMOVAX) Unknown Completed [facility] Influenza Virus Vaccine Quad .5 mL IM 6+ MO (FLUZONE/FLULAVAL/F LUARIX) Unknown Completed [facility] SARS-COV-2 COVID-19 MODERNA 12+ YRS VACCINE Unknown Completed [facility] SARS-COV-2 COVID-19 MODERNA 12+ YRS VACCINE Unknown Completed [facility] SARS-COV-2 COVID-19 MODERNA 0.25ML BOOSTER VACCINE Unknown Completed [facility] Influenza Virus Vaccine Recomb Quad IM, Preserv and ABX Free 18-64 YRS Unknown Completed [facility] Pneumococcal Polysaccharide, PPSV23 (PNEUMOVAX) Unknown Completed [facility] Influenza Virus Vaccine Quad .5 mL IM 6+ MO (FLUZONE/FLULAVAL/F LUARIX) Unknown Completed [facility] SARS-COV-2 COVID-19 MODERNA 12+ YRS VACCINE Unknown Completed [facility] SARS-COV-2 COVID-19 MODERNA 12+ YRS VACCINE Unknown Completed [facility] SARS-COV-2 COVID-19 MODERNA 0.25ML BOOSTER VACCINE Unknown Completed [facility] Pneumococcal Polysaccharide, PPSV23 (PNEUMOVAX) Unknown Completed [facility] Influenza Virus Vaccine Quad .5 mL IM 6+ MO (FLUZONE/FLULAVAL/F LUARIX) Unknown Completed [facility] SARS-COV-2 COVID-19 MODERNA 12+ YRS VACCINE Unknown Completed [facility] SARS-COV-2 COVID-19 MODERNA 12+ YRS VACCINE Unknown Completed [facility] SARS-COV-2 COVID-19 MODERNA 0.25ML BOOSTER VACCINE Unknown Completed [facility] Influenza Virus Vaccine Recomb Quad IM, Preserv and ABX Free 18-64 YRS Unknown Completed [facility] Pneumococcal Polysaccharide, PPSV23 (PNEUMOVAX) Unknown Completed [facility] Influenza Virus Vaccine Quad .5 mL IM 6+ MO (FLUZONE/FLULAVAL/F LUARIX) Unknown Completed [facility] SARS-COV-2 COVID-19 MODERNA 12+ YRS VACCINE Unknown Completed [facility] SARS-COV-2 COVID-19 MODERNA 12+ YRS VACCINE Unknown Completed [facility] SARS-COV-2 COVID-19 MODERNA 0.25ML BOOSTER VACCINE Unknown Completed [facility] Influenza Virus Vaccine Recomb Quad IM, Preserv and ABX Free 18-64 YRS Unknown Completed [facility] Pneumococcal Polysaccharide, PPSV23 (PNEUMOVAX) Unknown Completed [facility] Influenza Virus Vaccine Quad .5 mL IM 6+ MO (FLUZONE/FLULAVAL/F LUARIX) Unknown Completed [facility] SARS-COV-2 COVID-19 MODERNA 12+ YRS VACCINE Unknown Completed [facility] SARS-COV-2 COVID-19 MODERNA 12+ YRS VACCINE Unknown Completed [facility] SARS-COV-2 COVID-19 MODERNA 0.25ML BOOSTER VACCINE Unknown Completed [facility] Influenza Virus Vaccine Recomb Quad IM, Preserv and ABX Free 18-64 YRS Unknown Completed [facility] Pneumococcal Polysaccharide, PPSV23 (PNEUMOVAX) Unknown Completed [facility] Influenza Virus Vaccine Quad .5 mL IM 6+ MO (FLUZONE/FLULAVAL/F LUARIX) Unknown Completed [facility] SARS-COV-2 COVID-19 MODERNA 12+ YRS VACCINE Unknown Completed [facility] SARS-COV-2 COVID-19 MODERNA 12+ YRS VACCINE Unknown Completed [facility] SARS-COV-2 COVID-19 MODERNA 0.25ML BOOSTER VACCINE Unknown Completed [facility] Influenza Virus Vaccine Recomb Quad IM, Preserv and ABX Free 18-64 YRS Unknown Completed [facility] Pneumococcal Polysaccharide, PPSV23 (PNEUMOVAX) Unknown Completed [facility] Influenza Virus Vaccine Quad .5 mL IM 6+ MO (FLUZONE/FLULAVAL/F LUARIX) Unknown Completed [facility] SARS-COV-2 COVID-19 MODERNA 12+ YRS VACCINE Unknown Completed [facility] SARS-COV-2 COVID-19 MODERNA 12+ YRS VACCINE Unknown Completed [facility] SARS-COV-2 COVID-19 MODERNA 0.25ML BOOSTER VACCINE Unknown Completed [facility] Influenza Virus Vaccine Recomb Quad IM, Preserv and ABX Free 18-64 YRS Unknown Completed [facility] Pneumococcal Polysaccharide, PPSV23 (PNEUMOVAX) Unknown Completed [facility] Influenza Virus Vaccine Quad .5 mL IM 6+ MO (FLUZONE/FLULAVAL/F LUARIX) Unknown Completed [facility] SARS-COV-2 COVID-19 MODERNA 12+ YRS VACCINE Unknown Completed [facility] SARS-COV-2 COVID-19 MODERNA 12+ YRS VACCINE Unknown Completed [facility] SARS-COV-2 COVID-19 MODERNA 0.25ML BOOSTER VACCINE Unknown Completed [facility] Influenza Virus Vaccine Recomb Quad IM, Preserv and ABX Free 18-64 YRS Unknown Completed [facility] Pneumococcal Polysaccharide, PPSV23 (PNEUMOVAX) Unknown Completed [facility] Influenza Virus Vaccine Quad .5 mL IM 6+ MO (FLUZONE/FLULAVAL/F LUARIX) Unknown Completed [facility] SARS-COV-2 COVID-19 MODERNA 12+ YRS VACCINE Unknown Completed [facility] SARS-COV-2 COVID-19 MODERNA 12+ YRS VACCINE Unknown Completed [facility] SARS-COV-2 COVID-19 MODERNA 0.25ML BOOSTER VACCINE Unknown Completed [facility] Influenza Virus Vaccine Recomb Quad IM, Preserv and ABX Free 18-64 YRS Unknown Completed [facility] Pneumococcal Polysaccharide, PPSV23 (PNEUMOVAX) Unknown Completed [facility] Influenza Virus Vaccine Quad .5 mL IM 6+ MO (FLUZONE/FLULAVAL/F LUARIX) Unknown Completed [facility] SARS-COV-2 COVID-19 MODERNA 12+ YRS VACCINE Unknown Completed [facility] SARS-COV-2 COVID-19 MODERNA 12+ YRS VACCINE Unknown Completed [facility] SARS-COV-2 COVID-19 MODERNA 0.25ML BOOSTER VACCINE Unknown Completed [facility] Influenza Virus Vaccine Recomb Quad IM, Preserv and ABX Free 18-64 YRS Unknown Completed [facility] Pneumococcal Polysaccharide, PPSV23 (PNEUMOVAX) Unknown Completed [facility] Influenza Virus Vaccine Quad .5 mL IM 6+ MO (FLUZONE/FLULAVAL/F LUARIX) Unknown Completed [facility] SARS-COV-2 COVID-19 MODERNA 12+ YRS VACCINE Unknown Completed [facility] SARS-COV-2 COVID-19 MODERNA 12+ YRS VACCINE Unknown Completed [facility] SARS-COV-2 COVID-19 MODERNA 0.25ML BOOSTER VACCINE Unknown Completed [facility] Influenza Virus Vaccine Recomb Quad IM, Preserv and ABX Free 18-64 YRS Unknown Completed [facility] Pneumococcal Polysaccharide, PPSV23 (PNEUMOVAX) Unknown Completed [facility] Influenza Virus Vaccine Quad .5 mL IM 6+ MO (FLUZONE/FLULAVAL/F LUARIX) Unknown Completed [facility] SARS-COV-2 COVID-19 MODERNA 12+ YRS VACCINE Unknown Completed [facility] SARS-COV-2 COVID-19 MODERNA 12+ YRS VACCINE Unknown Completed [facility] SARS-COV-2 COVID-19 MODERNA 0.25ML BOOSTER VACCINE Unknown Completed [facility] Influenza Virus Vaccine Recomb Quad IM, Preserv and ABX Free 18-64 YRS Unknown Completed [facility] Pneumococcal Polysaccharide, PPSV23 (PNEUMOVAX) Unknown Completed [facility] Influenza Virus Vaccine Quad .5 mL IM 6+ MO (FLUZONE/FLULAVAL/F LUARIX) Unknown Completed [facility] SARS-COV-2 COVID-19 MODERNA 12+ YRS VACCINE Unknown Completed [facility] SARS-COV-2 COVID-19 MODERNA 12+ YRS VACCINE Unknown Completed [facility] SARS-COV-2 COVID-19 MODERNA 0.25ML BOOSTER VACCINE Unknown Completed [facility] Influenza Virus Vaccine Recomb Quad IM, Preserv and ABX Free 18-64 YRS Unknown Completed [facility] Pneumococcal Polysaccharide, PPSV23 (PNEUMOVAX) Unknown Completed [facility] Influenza Virus Vaccine Quad .5 mL IM 6+ MO (FLUZONE/FLULAVAL/F LUARIX) Unknown Completed [facility] SARS-COV-2 COVID-19 MODERNA 12+ YRS VACCINE Unknown Completed [facility] SARS-COV-2 COVID-19 MODERNA 12+ YRS VACCINE Unknown Completed [facility] SARS-COV-2 COVID-19 MODERNA 0.25ML BOOSTER VACCINE Unknown Completed [facility] Influenza Virus Vaccine Recomb Quad IM, Preserv and ABX Free 18-64 YRS Unknown Completed [facility] Pneumococcal Polysaccharide, PPSV23 (PNEUMOVAX) Unknown Completed [facility] Influenza Virus Vaccine Quad .5 mL IM 6+ MO (FLUZONE/FLULAVAL/F LUARIX) Unknown Completed [facility] SARS-COV-2 COVID-19 MODERNA 12+ YRS VACCINE Unknown Completed [facility] SARS-COV-2 COVID-19 MODERNA 12+ YRS VACCINE Unknown Completed [facility] SARS-COV-2 COVID-19 MODERNA 0.25ML BOOSTER VACCINE Unknown Completed [facility] Influenza Virus Vaccine Recomb Quad IM, Preserv and ABX Free 18-64 YRS Unknown Completed [facility] Pneumococcal Polysaccharide, PPSV23 (PNEUMOVAX) Unknown Completed [facility] Influenza Virus Vaccine Quad .5 mL IM 6+ MO (FLUZONE/FLULAVAL/F LUARIX) Unknown Completed [facility] SARS-COV-2 COVID-19 MODERNA 12+ YRS VACCINE Unknown Completed [facility] SARS-COV-2 COVID-19 MODERNA 12+ YRS VACCINE Unknown Completed [facility] SARS-COV-2 COVID-19 MODERNA 0.25ML BOOSTER VACCINE Unknown Completed [facility] Influenza Virus Vaccine Recomb Quad IM, Preserv and ABX Free 18-64 YRS Unknown Completed [facility] Pneumococcal Polysaccharide, PPSV23 (PNEUMOVAX) Unknown Completed [facility] Influenza Virus Vaccine Quad .5 mL IM 6+ MO (FLUZONE/FLULAVAL/F LUARIX) Unknown Completed [facility] SARS-COV-2 COVID-19 MODERNA 12+ YRS VACCINE Unknown Completed [facility] SARS-COV-2 COVID-19 MODERNA 12+ YRS VACCINE Unknown Completed [facility] SARS-COV-2 COVID-19 MODERNA 0.25ML BOOSTER VACCINE Unknown Completed [facility] Influenza Virus Vaccine Recomb Quad IM, Preserv and ABX Free 18-64 YRS Unknown Completed [facility] Pneumococcal Polysaccharide, PPSV23 (PNEUMOVAX) Unknown Completed [facility] Influenza Virus Vaccine Quad .5 mL IM 6+ MO (FLUZONE/FLULAVAL/F LUARIX) Unknown Completed [facility] SARS-COV-2 COVID-19 MODERNA 12+ YRS VACCINE Unknown Completed [facility] SARS-COV-2 COVID-19 MODERNA 12+ YRS VACCINE Unknown Completed [facility] SARS-COV-2 COVID-19 MODERNA 0.25ML BOOSTER VACCINE Unknown Completed [facility] Influenza Virus Vaccine Recomb Quad IM, Preserv and ABX Free 18-64 YRS Unknown Completed [facility] Pneumococcal Polysaccharide, PPSV23 (PNEUMOVAX) Unknown Completed [facility] Influenza Virus Vaccine Quad .5 mL IM 6+ MO (FLUZONE/FLULAVAL/F LUARIX) Unknown Completed [facility] SARS-COV-2 COVID-19 MODERNA 12+ YRS VACCINE Unknown Completed [facility] SARS-COV-2 COVID-19 MODERNA 12+ YRS VACCINE Unknown Completed [facility] SARS-COV-2 COVID-19 MODERNA 0.25ML BOOSTER VACCINE Unknown Completed [facility] Influenza Virus Vaccine Recomb Quad IM, Preserv and ABX Free 18-64 YRS Unknown Completed [facility] Pneumococcal Polysaccharide, PPSV23 (PNEUMOVAX) Unknown Completed [facility] Influenza Virus Vaccine Quad .5 mL IM 6+ MO (FLUZONE/FLULAVAL/F LUARIX) Unknown Completed [facility] SARS-COV-2 COVID-19 MODERNA 12+ YRS VACCINE Unknown Completed [facility] SARS-COV-2 COVID-19 MODERNA 12+ YRS VACCINE Unknown Completed [facility] SARS-COV-2 COVID-19 MODERNA 0.25ML BOOSTER VACCINE Unknown Completed [facility] Influenza Virus Vaccine Recomb Quad IM, Preserv and ABX Free 18-64 YRS Unknown Completed [facility] Pneumococcal Polysaccharide, PPSV23 (PNEUMOVAX) Unknown Completed [facility] Influenza Virus Vaccine Quad .5 mL IM 6+ MO (FLUZONE/FLULAVAL/F LUARIX) Unknown Completed [facility] SARS-COV-2 COVID-19 MODERNA 12+ YRS VACCINE Unknown Completed [facility] SARS-COV-2 COVID-19 MODERNA 12+ YRS VACCINE Unknown Completed [facility] SARS-COV-2 COVID-19 MODERNA 0.25ML BOOSTER VACCINE Unknown Completed [facility] Influenza Virus Vaccine Recomb Quad IM, Preserv and ABX Free 18-64 YRS Unknown Completed [facility] Pneumococcal Polysaccharide, PPSV23 (PNEUMOVAX) Unknown Completed [facility] Influenza Virus Vaccine Quad .5 mL IM 6+ MO (FLUZONE/FLULAVAL/F LUARIX) Unknown Completed [facility] SARS-COV-2 COVID-19 MODERNA 12+ YRS VACCINE Unknown Completed [facility] SARS-COV-2 COVID-19 MODERNA 12+ YRS VACCINE Unknown Completed [facility] SARS-COV-2 COVID-19 MODERNA 0.25ML BOOSTER VACCINE Unknown Completed [facility] Influenza Virus Vaccine Recomb Quad IM, Preserv and ABX Free 18-64 YRS Unknown Completed [facility] Pneumococcal Polysaccharide, PPSV23 (PNEUMOVAX) Unknown Completed [facility] Influenza Virus Vaccine Quad .5 mL IM 6+ MO (FLUZONE/FLULAVAL/F LUARIX) Unknown Completed [facility] SARS-COV-2 COVID-19 MODERNA 12+ YRS VACCINE Unknown Completed [facility] [facility] SARS[facility]2 COVID-19 MODERNA 12+ YRS VACCINE Unknown Completed [facility] SARS-COV-2 COVID-19 MODERNA 0.25ML BOOSTER VACCINE Unknown Completed [facility] Influenza Virus Vaccine Recomb Quad IM, Preserv and ABX Free 18-64 YRS Unknown Completed [facility] Pneumococcal Polysaccharide, PPSV23 (PNEUMOVAX) Unknown Completed [facility] Influenza Virus Vaccine Quad .5 mL IM 6+ MO (FLUZONE/FLULAVAL/F LUARIX) Unknown Completed [facility] SARS-COV-2 COVID-19 MODERNA 12+ YRS VACCINE Unknown Completed [facility] SARS-COV-2 COVID-19 MODERNA 12+ YRS VACCINE Unknown Completed [facility] SARS-COV-2 COVID-19 MODERNA 0.25ML BOOSTER VACCINE Unknown Completed [facility] Influenza Virus Vaccine Recomb Quad IM, Preserv and ABX Free 18-64 YRS Unknown Completed [facility] Influenza Virus Vaccine Quad IM, Preserv and ABX Free 6 MO-64 YRS (FLUCELVAX) Unknown Completed [facility] Pneumococcal 20 Conjugate, PCV20 (Prevnar 20) Unknown Completed [facility] Pneumococcal Polysaccharide, PPSV23 (PNEUMOVAX) Unknown Completed [facility] Influenza Virus Vaccine Quad .5 mL IM 6+ MO (FLUZONE/FLULAVAL/F LUARIX) Unknown Completed [facility] SARS-COV-2 COVID-19 MODERNA 12+ YRS VACCINE Unknown Completed [facility] SARS-COV-2 COVID-19 MODERNA 12+ YRS VACCINE Unknown Completed [facility] SARS-COV-2 COVID-19 MODERNA 0.25ML BOOSTER VACCINE Unknown Completed [facility] Influenza Virus Vaccine Recomb Quad IM, Preserv and ABX Free 18-64 YRS Unknown Completed [facility] Influenza Virus Vaccine Quad IM, Preserv and ABX Free 6 MO-64 YRS (FLUCELVAX) Unknown Completed [facility] Pneumococcal 20 Conjugate, PCV20 (Prevnar 20) Unknown Completed [facility] Pneumococcal Polysaccharide, PPSV23 (PNEUMOVAX) Unknown Completed [facility] Influenza Virus Vaccine Quad .5 mL IM 6+ MO (FLUZONE/FLULAVAL/F LUARIX) Unknown Completed [facility] SARS-COV-2 COVID-19 MODERNA 12+ YRS VACCINE Unknown Completed [facility] SARS-COV-2 COVID-19 MODERNA 12+ YRS VACCINE Unknown Completed [facility] SARS-COV-2 COVID-19 MODERNA 0.25ML BOOSTER VACCINE Unknown Completed [facility] Influenza Virus Vaccine Recomb Quad IM, Preserv and ABX Free 18-64 YRS Unknown Completed [facility] Influenza Virus Vaccine Quad IM, Preserv and ABX Free 6 MO-64 YRS (FLUCELVAX) Unknown Completed [facility] Pneumococcal 20 Conjugate, PCV20 (Prevnar 20) Unknown Completed [facility] Pneumococcal Polysaccharide, PPSV23 (PNEUMOVAX) Unknown Completed [facility] Influenza Virus Vaccine Quad .5 mL IM 6+ MO (FLUZONE/FLULAVAL/F LUARIX) Unknown Completed [facility] SARS-COV-2 COVID-19 MODERNA 12+ YRS VACCINE Unknown Completed [facility] SARS-COV-2 COVID-19 MODERNA 12+ YRS VACCINE Unknown Completed [facility] SARS-COV-2 COVID-19 MODERNA 0.25ML BOOSTER VACCINE Unknown Completed [facility] Influenza Virus Vaccine Recomb Quad IM, Preserv and ABX Free 18-64 YRS Unknown Completed [facility] Influenza Virus Vaccine Quad IM, Preserv and ABX Free 6 MO-64 YRS (FLUCELVAX) Unknown Completed [facility] Pneumococcal 20 Conjugate, PCV20 (Prevnar 20) Unknown Completed [facility] Pneumococcal Polysaccharide, PPSV23 (PNEUMOVAX) Unknown Completed [facility] Influenza Virus Vaccine Quad .5 mL IM 6+ MO (FLUZONE/FLULAVAL/F LUARIX) Unknown Completed [facility] SARS-COV-2 COVID-19 MODERNA 12+ YRS VACCINE Unknown Completed [facility] SARS-COV-2 COVID-19 MODERNA 12+ YRS VACCINE Unknown Completed [facility] SARS-COV-2 COVID-19 MODERNA 0.25ML BOOSTER VACCINE Unknown Completed [facility] Influenza Virus Vaccine Recomb Quad IM, Preserv and ABX Free 18-64 YRS Unknown Completed [facility] Influenza Virus Vaccine Quad IM, Preserv and ABX Free 6 MO-64 YRS (FLUCELVAX) Unknown Completed [facility] Pneumococcal 20 Conjugate, PCV20 (Prevnar 20) Unknown Completed [facility] Pneumococcal Polysaccharide, PPSV23 (PNEUMOVAX) Unknown Completed [facility] Influenza Virus Vaccine Quad .5 mL IM 6+ MO (FLUZONE/FLULAVAL/F LUARIX) Unknown Completed [facility] SARS-COV-2 COVID-19 MODERNA 12+ YRS VACCINE Unknown Completed [facility] SARS-COV-2 COVID-19 MODERNA 12+ YRS VACCINE Unknown Completed [facility] SARS-COV-2 COVID-19 MODERNA 0.25ML BOOSTER VACCINE Unknown Completed [facility] Influenza Virus Vaccine Recomb Quad IM, Preserv and ABX Free 18-64 YRS Unknown Completed [facility] Influenza Virus Vaccine Quad IM, Preserv and ABX Free 6 MO-64 YRS (FLUCELVAX) Unknown Completed [facility] Pneumococcal 20 Conjugate, PCV20 (Prevnar 20) Unknown Completed [facility] Pneumococcal Polysaccharide, PPSV23 (PNEUMOVAX) Unknown Completed [facility] Influenza Virus Vaccine Quad .5 mL IM 6+ MO (FLUZONE/FLULAVAL/F LUARIX) Unknown Completed [facility] SARS-COV-2 COVID-19 MODERNA 12+ YRS VACCINE Unknown Completed [facility] SARS-COV-2 COVID-19 MODERNA 12+ YRS VACCINE Unknown Completed [facility] SARS-COV-2 COVID-19 MODERNA 0.25ML BOOSTER VACCINE Unknown Completed [facility] Influenza Virus Vaccine Recomb Quad IM, Preserv and ABX Free 18-64 YRS Unknown Completed [facility] Influenza Virus Vaccine Quad IM, Preserv and ABX Free 6 MO-64 YRS (FLUCELVAX) Unknown Completed [facility] Pneumococcal 20 Conjugate, PCV20 (Prevnar 20) Unknown Completed [facility] Pneumococcal Polysaccharide, PPSV23 (PNEUMOVAX) Unknown Completed [facility] Influenza Virus Vaccine Quad .5 mL IM 6+ MO (FLUZONE/FLULAVAL/F LUARIX) Unknown Completed [facility] SARS-COV-2 COVID-19 MODERNA 12+ YRS VACCINE Unknown Completed [facility] SARS-COV-2 COVID-19 MODERNA 12+ YRS VACCINE Unknown Completed [facility] SARS-COV-2 COVID-19 MODERNA 0.25ML BOOSTER VACCINE Unknown Completed [facility] Influenza Virus Vaccine Recomb Quad IM, Preserv and ABX Free 18-64 YRS Unknown Completed [facility] Influenza Virus Vaccine Quad IM, Preserv and ABX Free 6 MO-64 YRS (FLUCELVAX) Unknown Completed [facility] Pneumococcal 20 Conjugate, PCV20 (Prevnar 20) Unknown Completed [facility] Pneumococcal Polysaccharide, PPSV23 (PNEUMOVAX) Unknown Completed [facility] Influenza Virus Vaccine Quad .5 mL IM 6+ MO (FLUZONE/FLULAVAL/F LUARIX) Unknown Completed [facility] SARS-COV-2 COVID-19 MODERNA 12+ YRS VACCINE Unknown Completed [facility] SARS-COV-2 COVID-19 MODERNA 12+ YRS VACCINE Unknown Completed [facility] SARS-COV-2 COVID-19 MODERNA 0.25ML BOOSTER VACCINE Unknown Completed [facility] Influenza Virus Vaccine Recomb Quad IM, Preserv and ABX Free 18-64 YRS Unknown Completed [facility] Influenza Virus Vaccine Quad IM, Preserv and ABX Free 6 MO-64 YRS (FLUCELVAX) Unknown Completed [facility] Pneumococcal 20 Conjugate, PCV20 (Prevnar 20) Unknown Completed [facility] Pneumococcal Polysaccharide, PPSV23 (PNEUMOVAX) Unknown Completed [facility] Influenza Virus Vaccine Quad .5 mL IM 6+ MO (FLUZONE/FLULAVAL/F LUARIX) Unknown Completed [facility] SARS-COV-2 COVID-19 MODERNA 12+ YRS VACCINE Unknown Completed [facility] SARS-COV-2 COVID-19 MODERNA 12+ YRS VACCINE Unknown Completed [facility] SARS-COV-2 COVID-19 MODERNA 0.25ML BOOSTER VACCINE Unknown Completed [facility] Influenza Virus Vaccine Recomb Quad IM, Preserv and ABX Free 18-64 YRS Unknown Completed [facility] Influenza Virus Vaccine Quad IM, Preserv and ABX Free 6 MO-64 YRS (FLUCELVAX) Unknown Completed [facility] Pneumococcal 20 Conjugate, PCV20 (Prevnar 20) Unknown Completed [facility] Pneumococcal Polysaccharide, PPSV23 (PNEUMOVAX) Unknown Completed [facility] Influenza Virus Vaccine Quad .5 mL IM 6+ MO (FLUZONE/FLULAVAL/F LUARIX) Unknown Completed [facility] SARS-COV-2 COVID-19 MODERNA 12+ YRS VACCINE Unknown Completed [facility] SARS-COV-2 COVID-19 MODERNA 12+ YRS VACCINE Unknown Completed [facility] SARS-COV-2 COVID-19 MODERNA 0.25ML BOOSTER VACCINE Unknown Completed [facility] Influenza Virus Vaccine Recomb Quad IM, Preserv and ABX Free 18-64 YRS Unknown Completed [facility] Influenza Virus Vaccine Quad IM, Preserv and ABX Free 6 MO-64 YRS (FLUCELVAX) Unknown Completed [facility] Pneumococcal 20 Conjugate, PCV20 (Prevnar 20) Unknown Completed [facility] Pneumococcal Polysaccharide, PPSV23 (PNEUMOVAX) Unknown Completed [facility] Influenza Virus Vaccine Quad .5 mL IM 6+ MO (FLUZONE/FLULAVAL/F LUARIX) Unknown Completed [facility] SARS-COV-2 COVID-19 MODERNA 12+ YRS VACCINE Unknown Completed [facility] SARS-COV-2 COVID-19 MODERNA 12+ YRS VACCINE Unknown Completed [facility] SARS-COV-2 COVID-19 MODERNA 0.25ML BOOSTER VACCINE Unknown Completed [facility] Influenza Virus Vaccine Recomb Quad IM, Preserv and ABX Free 18-64 YRS Unknown Completed [facility] Influenza Virus Vaccine Quad IM, Preserv and ABX Free 6 MO-64 YRS (FLUCELVAX) Unknown Completed [facility] Pneumococcal 20 Conjugate, PCV20 (Prevnar 20) Unknown Completed [facility] Pneumococcal Polysaccharide, PPSV23 (PNEUMOVAX) Unknown Completed [facility] Influenza Virus Vaccine Quad .5 mL IM 6+ MO (FLUZONE/FLULAVAL/F LUARIX) Unknown Completed [facility] SARS-COV-2 COVID-19 MODERNA 12+ YRS VACCINE Unknown Completed [facility] SARS-COV-2 COVID-19 MODERNA 12+ YRS VACCINE Unknown Completed [facility] SARS-COV-2 COVID-19 MODERNA 0.25ML BOOSTER VACCINE Unknown Completed [facility] Influenza Virus Vaccine Recomb Quad IM, Preserv and ABX Free 18-64 YRS Unknown Completed [facility] Influenza Virus Vaccine Quad IM, Preserv and ABX Free 6 MO-64 YRS (FLUCELVAX) Unknown Completed [facility] Pneumococcal 20 Conjugate, PCV20 (Prevnar 20) Unknown Completed [facility] Pneumococcal Polysaccharide, PPSV23 (PNEUMOVAX) Unknown Completed [facility] Influenza Virus Vaccine Quad .5 mL IM 6+ MO (FLUZONE/FLULAVAL/F LUARIX) Unknown Completed [facility] SARS-COV-2 COVID-19 MODERNA 12+ YRS VACCINE Unknown Completed [facility] SARS-COV-2 COVID-19 MODERNA 12+ YRS VACCINE Unknown Completed [facility] SARS-COV-2 COVID-19 MODERNA 0.25ML BOOSTER VACCINE Unknown Completed [facility] Influenza Virus Vaccine Recomb Quad IM, Preserv and ABX Free 18-64 YRS Unknown Completed [facility] Influenza Virus Vaccine Quad IM, Preserv and ABX Free 6 MO-64 YRS (FLUCELVAX) Unknown Completed [facility] Pneumococcal 20 Conjugate, PCV20 (Prevnar 20) Unknown Completed [facility] Pneumococcal Polysaccharide, PPSV23 (PNEUMOVAX) Unknown Completed [facility] Influenza Virus Vaccine Quad .5 mL IM 6+ MO (FLUZONE/FLULAVAL/F LUARIX) Unknown Completed [facility] SARS-COV-2 COVID-19 MODERNA 12+ YRS VACCINE Unknown Completed [facility] SARS-COV-2 COVID-19 MODERNA 12+ YRS VACCINE Unknown Completed [facility] SARS-COV-2 COVID-19 MODERNA 0.25ML BOOSTER VACCINE Unknown Completed [facility] Influenza Virus Vaccine Recomb Quad IM, Preserv and ABX Free 18-64 YRS Unknown Completed [facility] Influenza Virus Vaccine Quad IM, Preserv and ABX Free 6 MO-64 YRS (FLUCELVAX) Unknown Completed [facility] Pneumococcal 20 Conjugate, PCV20 (Prevnar 20) Unknown Completed [facility] Pneumococcal Polysaccharide, PPSV23 (PNEUMOVAX) Unknown Completed [facility] Influenza Virus Vaccine Quad .5 mL IM 6+ MO (FLUZONE/FLULAVAL/F LUARIX) Unknown Completed [facility] SARS-COV-2 COVID-19 MODERNA 12+ YRS VACCINE Unknown Completed [facility] SARS-COV-2 COVID-19 MODERNA 12+ YRS VACCINE Unknown Completed [facility] SARS-COV-2 COVID-19 MODERNA 0.25ML BOOSTER VACCINE Unknown Completed [facility] Influenza Virus Vaccine Recomb Quad IM, Preserv and ABX Free 18-64 YRS Unknown Completed [facility] Influenza Virus Vaccine Quad IM, Preserv and ABX Free 6 MO-64 YRS (FLUCELVAX) Unknown Completed [facility] Pneumococcal 20 Conjugate, PCV20 (Prevnar 20) Unknown Completed [facility] Pneumococcal Polysaccharide, PPSV23 (PNEUMOVAX) Unknown Completed [facility] Influenza Virus Vaccine Quad .5 mL IM 6+ MO (FLUZONE/FLULAVAL/F LUARIX) Unknown Completed [facility] SARS-COV-2 COVID-19 MODERNA 12+ YRS VACCINE Unknown Completed [facility] SARS-COV-2 COVID-19 MODERNA 12+ YRS VACCINE Unknown Completed [facility] SARS-COV-2 COVID-19 MODERNA 0.25ML BOOSTER VACCINE Unknown Completed [facility] Influenza Virus Vaccine Recomb Quad IM, Preserv and ABX Free 18-64 YRS Unknown Completed [facility] Influenza Virus Vaccine Quad IM, Preserv and ABX Free 6 MO-64 YRS (FLUCELVAX) Unknown Completed [facility] Pneumococcal 20 Conjugate, PCV20 (Prevnar 20) Unknown Completed [facility] Pneumococcal Polysaccharide, PPSV23 (PNEUMOVAX) Unknown Completed [facility] Influenza Virus Vaccine Quad .5 mL IM 6+ MO (FLUZONE/FLULAVAL/F LUARIX) Unknown Completed [facility] SARS-COV-2 COVID-19 MODERNA 12+ YRS VACCINE Unknown Completed [facility] SARS-COV-2 COVID-19 MODERNA 12+ YRS VACCINE Unknown Completed [facility] SARS-COV-2 COVID-19 MODERNA 0.25ML BOOSTER VACCINE Unknown Completed [facility] Influenza Virus Vaccine Recomb Quad IM, Preserv and ABX Free 18-64 YRS Unknown Completed [facility] Influenza Virus Vaccine Quad IM, Preserv and ABX Free 6 MO-64 YRS (FLUCELVAX) Unknown Completed [facility] Pneumococcal 20 Conjugate, PCV20 (Prevnar 20) Unknown Completed [facility] Pneumococcal Polysaccharide, PPSV23 (PNEUMOVAX) Unknown Completed [facility] Influenza Virus Vaccine Quad .5 mL IM 6+ MO (FLUZONE/FLULAVAL/F LUARIX) Unknown Completed [facility] SARS-COV-2 COVID-19 MODERNA 12+ YRS VACCINE Unknown Completed [facility] SARS-COV-2 COVID-19 MODERNA 12+ YRS VACCINE Unknown Completed [facility] SARS-COV-2 COVID-19 MODERNA 0.25ML BOOSTER VACCINE Unknown Completed [facility] Influenza Virus Vaccine Recomb Quad IM, Preserv and ABX Free 18-64 YRS Unknown Completed [facility] Influenza Virus Vaccine Quad IM, Preserv and ABX Free 6 MO-64 YRS (FLUCELVAX) Unknown Completed [facility] Pneumococcal 20 Conjugate, PCV20 (Prevnar 20) Unknown Completed [facility] Pneumococcal Polysaccharide, PPSV23 (PNEUMOVAX) Unknown Completed [facility] Influenza Virus Vaccine Quad .5 mL IM 6+ MO (FLUZONE/FLULAVAL/F LUARIX) Unknown Completed [facility] SARS-COV-2 COVID-19 MODERNA 12+ YRS VACCINE Unknown Completed [facility] SARS-COV-2 COVID-19 MODERNA 12+ YRS VACCINE Unknown Completed [facility] SARS-COV-2 COVID-19 MODERNA 0.25ML BOOSTER VACCINE Unknown Completed [facility] Influenza Virus Vaccine Recomb Quad IM, Preserv and ABX Free 18-64 YRS Unknown Completed [facility] Influenza Virus Vaccine Quad IM, Preserv and ABX Free 6 MO-64 YRS (FLUCELVAX) Unknown Completed [facility] Pneumococcal 20 Conjugate, PCV20 (Prevnar 20) Unknown Completed [facility] Pneumococcal Polysaccharide, PPSV23 (PNEUMOVAX) Unknown Completed [facility] Influenza Virus Vaccine Quad .5 mL IM 6+ MO (FLUZONE/FLULAVAL/F LUARIX) Unknown Completed [facility] SARS-COV-2 COVID-19 MODERNA 12+ YRS VACCINE Unknown Completed [facility] SARS-COV-2 COVID-19 MODERNA 12+ YRS VACCINE Unknown Completed [facility] SARS-COV-2 COVID-19 MODERNA 0.25ML BOOSTER VACCINE Unknown Completed [facility] Influenza Virus Vaccine Recomb Quad IM, Preserv and ABX Free 18-64 YRS Unknown Completed [facility] Influenza Virus Vaccine Quad IM, Preserv and ABX Free 6 MO-64 YRS (FLUCELVAX) Unknown Completed [facility] Pneumococcal 20 Conjugate, PCV20 (Prevnar 20) Unknown Completed [facility] Pneumococcal Polysaccharide, PPSV23 (PNEUMOVAX) Unknown Completed [facility] Influenza Virus Vaccine Quad .5 mL IM 6+ MO (FLUZONE/FLULAVAL/F LUARIX) Unknown Completed [facility] SARS-COV-2 COVID-19 MODERNA 12+ YRS VACCINE Unknown Completed [facility] SARS-COV-2 COVID-19 MODERNA 12+ YRS VACCINE Unknown Completed [facility] SARS-COV-2 COVID-19 MODERNA 0.25ML BOOSTER VACCINE Unknown Completed [facility] Influenza Virus Vaccine Recomb Quad IM, Preserv and ABX Free 18-64 YRS Unknown Completed [facility] Influenza Virus Vaccine Quad IM, Preserv and ABX Free 6 MO-64 YRS (FLUCELVAX) Unknown Completed [facility] Pneumococcal 20 Conjugate, PCV20 (Prevnar 20) Unknown Completed [facility] Pneumococcal Polysaccharide, PPSV23 (PNEUMOVAX) Unknown Completed [facility] Influenza Virus Vaccine Quad .5 mL IM 6+ MO (FLUZONE/FLULAVAL/F LUARIX) Unknown Completed [facility] SARS-COV-2 COVID-19 MODERNA 12+ YRS VACCINE Unknown Completed [facility] SARS-COV-2 COVID-19 MODERNA 12+ YRS VACCINE Unknown Completed [facility] SARS-COV-2 COVID-19 MODERNA 0.25ML BOOSTER VACCINE Unknown Completed [facility] Influenza Virus Vaccine Recomb Quad IM, Preserv and ABX Free 18-64 YRS Unknown Completed [facility] Influenza Virus Vaccine Quad IM, Preserv and ABX Free 6 MO-64 YRS (FLUCELVAX) Unknown Completed [facility] Pneumococcal 20 Conjugate, PCV20 (Prevnar 20) Unknown Completed [facility] Pneumococcal Polysaccharide, PPSV23 (PNEUMOVAX) Unknown Completed [facility] Influenza Virus Vaccine Quad .5 mL IM 6+ MO (FLUZONE/FLULAVAL/F LUARIX) Unknown Completed [facility] SARS-COV-2 COVID-19 MODERNA 12+ YRS VACCINE Unknown Completed [facility] SARS-COV-2 COVID-19 MODERNA 12+ YRS VACCINE Unknown Completed [facility] SARS-COV-2 COVID-19 MODERNA 0.25ML BOOSTER VACCINE Unknown Completed [facility] Influenza Virus Vaccine Recomb Quad IM, Preserv and ABX Free 18-64 YRS Unknown Completed [facility] Influenza Virus Vaccine Quad IM, Preserv and ABX Free 6 MO-64 YRS (FLUCELVAX) Unknown Completed [facility] Pneumococcal 20 Conjugate, PCV20 (Prevnar 20) Unknown Completed [facility] Pneumococcal Polysaccharide, PPSV23 (PNEUMOVAX) Unknown Completed [facility] Influenza Virus Vaccine Quad .5 mL IM 6+ MO (FLUZONE/FLULAVAL/F LUARIX) Unknown Completed [facility] SARS-COV-2 COVID-19 MODERNA 12+ YRS VACCINE Unknown Completed [facility] SARS-COV-2 COVID-19 MODERNA 12+ YRS VACCINE Unknown Completed [facility] SARS-COV-2 COVID-19 MODERNA 0.25ML BOOSTER VACCINE Unknown Completed [facility] Influenza Virus Vaccine Recomb Quad IM, Preserv and ABX Free 18-64 YRS Unknown Completed [facility] Influenza Virus Vaccine Quad IM, Preserv and ABX Free 6 MO-64 YRS (FLUCELVAX) Unknown Completed [facility] Pneumococcal 20 Conjugate, PCV20 (Prevnar 20) Unknown Completed [facility] Pneumococcal Polysaccharide, PPSV23 (PNEUMOVAX) Unknown Completed [facility] Influenza Virus Vaccine Quad .5 mL IM 6+ MO (FLUZONE/FLULAVAL/F LUARIX) Unknown Completed [facility] SARS-COV-2 COVID-19 MODERNA 12+ YRS VACCINE Unknown Completed [facility] SARS-COV-2 COVID-19 MODERNA 12+ YRS VACCINE Unknown Completed [facility] SARS-COV-2 COVID-19 MODERNA 0.25ML BOOSTER VACCINE Unknown Completed [facility] Influenza Virus Vaccine Recomb Quad IM, Preserv and ABX Free 18-64 YRS Unknown Completed [facility] Influenza Virus Vaccine Quad IM, Preserv and ABX Free 6 MO-64 YRS (FLUCELVAX) Unknown Completed [facility] Pneumococcal 20 Conjugate, PCV20 (Prevnar 20) Unknown Completed [facility] Pneumococcal Polysaccharide, PPSV23 (PNEUMOVAX) Unknown Completed [facility] Influenza Virus Vaccine Quad .5 mL IM 6+ MO (FLUZONE/FLULAVAL/F LUARIX) Unknown Completed [facility] SARS-COV-2 COVID-19 MODERNA 12+ YRS VACCINE Unknown Completed [facility] SARS-COV-2 COVID-19 MODERNA 12+ YRS VACCINE Unknown Completed [facility] SARS-COV-2 COVID-19 MODERNA 0.25ML BOOSTER VACCINE Unknown Completed [facility] Influenza Virus Vaccine Recomb Quad IM, Preserv and ABX Free 18-64 YRS Unknown Completed [facility] Influenza Virus Vaccine Quad IM, Preserv and ABX Free 6 MO-64 YRS (FLUCELVAX) Unknown Completed [facility] Pneumococcal 20 Conjugate, PCV20 (Prevnar 20) Unknown Completed [facility] Vital Signs Vital Name Observation Time Observation Value Comments S ource Systolic blood pressure 2023-07-28 20:40:00 132 mm[Hg] [facility] Diastolic blood pressure 2023-07-28 20:40:00 82 mm[Hg] [facility] Heart rate 2023-07-28 20:40:00 89 /min [facility] Body temperature 2023-07-28 20:40:00 36.83 Jeanne [facility] Respiratory rate 2023-07-28 20:40:00 24 /min [facility] Body height 2023-07-28 20:40:00 165.1 cm [facility] Body weight 2023-07-28 20:40:00 102.059 kg [facility] BMI 2023-07-28 20:40:00 37.44 kg/m2 [facility] Oxygen saturation in Arterial blood by Pulse oximetry 2023-07-28 20:40:00 95 /min [facility] Systolic blood pressure 2023-07-10 17:37:00 95 mm[Hg] [facility] Diastolic blood pressure 2023-07-10 17:37:00 63 mm[Hg] [facility] Body height 2023-07-10 17:37:00 165.1 cm [facility] Body weight 2023-07-10 17:37:00 102.059 kg [facility] BMI 2023-07-10 17:37:00 37.44 kg/m2 [facility] Systolic blood pressure 2023-07-09 14:58:00 100 mm[Hg] [facility] Diastolic blood pressure 2023-07-09 14:58:00 64 mm[Hg] [facility] Heart rate 2023-07-09 14:58:00 76 /min [facility] Body height 2023-07-09 14:58:00 165.1 cm Univ [facility] Body weight 2023-07-09 14:58:00 102.105 kg [facility] BMI 2023-07-09 14:58:00 37.46 kg/m2 [facility] Oxygen saturation in Arterial blood by Pulse oximetry 2023-07-09 14:58:00 96 /min [facility] Systolic blood pressure 2023-07-01 21:09:00 128 mm[Hg] [facility] Diastolic blood pressure 2023-07-01 21:09:00 70 mm[Hg] [facility] Heart rate 2023-07-01 21:09:00 82 /min Unive [facility] Body height 2023-07-01 21:09:00 165.1 cm Univ [facility] Body weight 2023-07-01 21:09:00 98.884 kg [facility] BMI 2023-07-01 21:09:00 36.28 kg/m2 [facility] Oxygen saturation in Arterial blood by Pulse oximetry 2023-07-01 21:09:00 97 /min [facility] Systolic blood pressure 2023-05-11 18:40:00 149 mm[Hg] [facility] Diastolic blood pressure 2023-05-11 18:40:00 80 mm[Hg] [facility] Heart rate 2023-05-11 18:39:00 89 /min Unive [facility] Respiratory rate 2023-05-11 18:39:00 18 /min [facility] Body height 2023-05-11 18:39:00 165.1 cm [facility] Body weight 2023-05-11 18:39:00 98.431 kg [facility] BMI 2023-05-11 18:39:00 36.11 kg/m2 [facility] Oxygen saturation in Arterial blood by Pulse oximetry 2023-05-11 18:39:00 97 /min [facility] Systolic blood pressure 2023-04-08 14:27:00 156 mm[Hg] [facility] Diastolic blood pressure 2023-04-08 14:27:00 84 mm[Hg] [facility] Heart rate 2023-04-08 14:26:00 88 /min Unive [facility] Respiratory rate 2023-04-08 14:26:00 18 /min [facility] Body height 2023-04-08 14:26:00 165.1 [facility] 2023-04-08 14:26:00 98.975 kg [facility] BMI 2023-04-08 14:26:00 36.31 kg/m2 [facility] Oxygen saturation in Arterial blood by Pulse oximetry 2023-04-08 14:26:00 96 /min [facility] Systolic blood pressure 2023-03-26 17:55:00 164 mm[Hg] [facility] Diastolic blood pressure 2023-03-26 17:55:00 84 mm[Hg] [facility] Heart rate 2023-03-26 17:54:00 81 /min Unive [facility] Respiratory rate 2023-03-26 17:54:00 18 /min [facility] Body height 2023-03-26 17:54:00 165.1 cm [facility] Body weight 2023-03-26 17:54:00 99.338 kg [facility] BMI 2023-03-26 17:54:00 36.44 kg/m2 [facility] Oxygen saturation in Arterial blood by Pulse oximetry 2023-03-26 17:54:00 97 /min [facility] Systolic blood pressure 2023-02-11 14:37:00 164 mm[Hg] [facility] Diastolic blood pressure 2023-02-11 14:37:00 85 mm[Hg] [facility] Heart rate 2023-02-11 14:36:00 99 /min Un[facility] Body height 2023-02-11 14:36:00 165.1 cm [facility] 2023-02-11 14:36:00 99.565 kg [facility] BMI 2023-02-11 14:36:00 36.53 kg/m2 [facility] Oxygen saturation in Arterial blood by Pulse oximetry 2023-02-11 14:36:00 97 /min [facility] Systolic blood pressure 2023-01-24 18:00:00 137 mm[Hg] [facility] Diastolic blood pressure 2023-01-24 18:00:00 89 mm[Hg] [facility] Heart rate 2023-01-24 18:00:00 87 /min Un[facility] Body temperature 2023-01-24 18:00:00 36.61 Jeanne [facility] Respiratory rate 2023-01-24 18:00:00 18 /min [facility] Body height 2023-01-24 18:00:00 165.1 cm [facility] Body weight 2023-01-24 18:00:00 97.523 kg [facility] BMI 2023-01-24 18:00:00 35.78 kg/m2 [facility] Oxygen saturation in Arterial blood by Pulse oximetry 2023-01-24 18:00:00 95 /min [facility] Systolic blood pressure 2022-12-22 15:24:00 158 mm[Hg] [facility] Diastolic blood pressure 2022-12-22 15:24:00 85 mm[Hg] [facility] Heart rate 2022-12-22 15:23:00 74 /min Un[facility] Body temperature 2022-12-22 15:23:00 36.61 Jeanne [facility] Respiratory rate 2022-12-22 15:23:00 18 /min [facility] Body height 2022-12-22 15:23:00 167.6 cm [facility] weight 2022-12-22 15:23:00 100.154 kg [facility] BMI 2022-12-22 15:23:00 35.64 kg/m2 [facility] Oxygen saturation in Arterial blood by Pulse oximetry 2022-12-22 15:23:00 95 /min [facility] Systolic blood pressure 2022-11-27 14:48:00 118 mm[Hg] [facility] Diastolic blood pressure 2022-11-27 14:48:00 76 mm[Hg] [facility] Heart rate 2022-11-27 14:48:00 94 /min Un[facility] Body temperature 2022-11-27 14:48:00 37.11 Jeanne [facility] Body height 2022-11-27 14:48:00 165.1 cm [facility] Body weight 2022-11-27 14:48:00 100.245 kg [facility] BMI 2022-11-27 14:48:00 36.78 kg/m2 [facility] Oxygen saturation in Arterial blood by Pulse oximetry 2022-11-27 14:48:00 94 /min [facility] Systolic blood pressure 2022-11-12 14:18:00 100 mm[Hg] [facility] Diastolic blood pressure 2022-11-12 14:18:00 69 mm[Hg] [facility] Heart rate 2022-11-12 14:18:00 108 /min Un[facility] Body height 2022-11-12 14:18:00 165.1 cm [facility] Body weight 2022-11-12 14:18:00 99.338 kg [facility] BMI 2022-11-12 14:18:00 36.44 kg/m2 [facility] Oxygen saturation in Arterial blood by Pulse oximetry 2022-11-12 14:18:00 96 /min [facility] Systolic blood pressure 2022-10-30 16:15:00 111 mm[Hg] [facility] Diastolic blood pressure 2022-10-30 16:15:00 75 mm[Hg] [facility] Body temperature 2022-10-30 16:15:00 36.72 Jeanne [facility] Respiratory rate 2022-10-30 16:15:00 16 /min [facility] Body height 2022-10-30 16:15:00 165.1 cm [facility] Body weight 2022-10-30 16:15:00 97.977 kg [facility] BMI 2022-10-30 16:15:00 35.94 kg/m2 [facility] Oxygen saturation in Arterial blood by Pulse oximetry 2022-10-30 16:15:00 97 /min [facility] Systolic blood pressure 2022-09-10 14:46:00 122 mm[Hg] [facility] Diastolic blood pressure 2022-09-10 14:46:00 70 mm[Hg] [facility] Heart rate 2022-09-10 14:46:00 107 /min [facility] Body height 2022-09-10 14:46:00 165.1 cm [facility] Body weight 2022-09-10 14:46:00 106.142 kg [facility] BMI 2022-09-10 14:46:00 38.94 kg/m2 [facility] Oxygen saturation in Arterial blood by Pulse oximetry 2022-09-10 14:46:00 94 /min [facility] Systolic blood pressure 2022-08-07 17:58:00 114 mm[Hg] [facility] Diastolic blood pressure 2022-08-07 17:58:00 59 mm[Hg] [facility] Heart rate 2022-08-07 17:58:00 92 /min [facility] Body height 2022-08-07 17:58:00 165.1 cm [facility] Body weight 2022-08-07 17:58:00 115.214 kg [facility] BMI 2022-08-07 17:58:00 42.27 kg/m2 [facility] Oxygen saturation in Arterial blood by Pulse oximetry 2022-08-07 17:58:00 91 /min [facility] Systolic blood pressure 2022-07-19 22:01:00 145 mm[Hg] [facility] Diastolic blood pressure 2022-07-19 22:01:00 73 mm[Hg] [facility] Heart rate 2022-07-19 22:01:00 91 /min [facility] Respiratory rate 2022-07-19 22:01:00 15 /min [facility] Oxygen saturation in Arterial blood by Pulse oximetry 2022-07-19 22:01:00 92 /min [facility] Body temperature 2022-07-19 19:11:00 36.72 Jeanne [facility] Body weight 2022-07-19 19:11:00 111.585 kg [facility] BMI 2022-07-19 19:11:00 40.94 kg/m2 [facility] Systolic blood pressure 2022-07-16 16:47:00 139 mm[Hg] [facility] Diastolic blood pressure 2022-07-16 16:47:00 78 mm[Hg] [facility] Heart rate 2022-07-16 16:45:00 83 /min [facility] Respiratory rate 2022-07-16 16:45:00 22 /min [facility] Body height 2022-07-16 16:45:00 165.1 cm [facility] Body weight 2022-07-16 16:45:00 111.585 kg [facility] BMI 2022-07-16 16:45:00 40.94 kg/m2 [facility] Oxygen saturation in Arterial blood by Pulse oximetry 2022-07-16 16:45:00 93 /min [facility] Systolic blood pressure 2022-06-10 20:16:00 138 mm[Hg] [facility] Diastolic blood pressure 2022-06-10 20:16:00 72 mm[Hg] [facility] Heart rate 2022-06-10 20:16:00 84 /min [facility] Body weight 2022-06-10 20:16:00 111.993 kg [facility] BMI 2022-06-10 20:16:00 41.09 kg/m2 [facility] Oxygen saturation in Arterial blood by Pulse oximetry 2022-06-10 20:16:00 95 /min [facility] Systolic blood pressure 2022-06-04 16:31:00 138 mm[Hg] [facility] Diastolic blood pressure 2022-06-04 16:31:00 80 mm[Hg] [facility] Heart rate 2022-06-04 16:00:00 95 /min [facility] Body temperature 2022-06-04 16:00:00 36.94 Jeanne [facility] Body height 2022-06-04 16:00:00 165.1 cm [facility] Body weight 2022-06-04 16:00:00 111.131 kg [facility] BMI 2022-06-04 16:00:00 40.77 kg/m2 [facility] Oxygen saturation in Arterial blood by Pulse oximetry 2022-06-04 16:00:00 95 /min [facility] Systolic blood pressure 2022-05-29 18:11:00 161 mm[Hg] [facility] Diastolic blood pressure 2022-05-29 18:11:00 78 mm[Hg] [facility] Heart rate 2022-05-29 18:11:00 89 /min [facility] Respiratory rate 2022-05-29 18:11:00 20 /min [facility] Oxygen saturation in Arterial blood by Pulse oximetry 2022-05-29 18:11:00 98 /min [facility] Body temperature 2022-05-29 15:16:00 37.06 Jeanne [facility] Body height 2022-05-29 15:16:00 165.1 cm [facility] Body weight 2022-05-29 15:16:00 113.399 kg [facility] BMI 2022-05-29 15:16:00 41.60 kg/m2 [facility] Systolic blood pressure 2022-05-23 21:06:00 156 mm[Hg] [facility] Diastolic blood pressure 2022-05-23 21:06:00 78 mm[Hg] [facility] Heart rate 2022-05-23 21:06:00 87 /min [facility] Body weight 2022-05-23 21:06:00 113.036 kg [facility] BMI 2022-05-23 21:06:00 41.47 kg/m2 [facility] Oxygen saturation in Arterial blood by Pulse oximetry 2022-05-23 21:06:00 97 /min [facility] Systolic blood pressure 2022-05-08 17:02:00 127 mm[Hg] [facility] Diastolic blood pressure 2022-05-08 17:02:00 77 mm[Hg] [facility] Heart rate 2022-05-08 16:56:00 87 /min [facility] Body weight 2022-05-08 16:56:00 111.131 kg [facility] BMI 2022-05-08 16:56:00 40.77 kg/m2 [facility] Oxygen saturation in Arterial blood by Pulse oximetry 2022-05-08 16:56:00 96 /min [facility] Procedures Procedure Date / Time Performed Performing Clinician Source HOME HEALTH - OTHER 2023-07-13 06:01:00 Doctor Nasreen medina, Tool [facility] POCT HEMOGLOBIN A1C TEST 2023-07-10 17:48:00 Giovany Antoine [facility] FLU VACC ([id number]), 6 MO-64 YRS, .5ML, IM, QUAD (FLUCELVAX) 2023-07-01 21:29:58 Jefferson Witt [facility] PNEUMOCOCCAL 20 CONJUGATE (PREVNAR 20) VACCINE 2023-07-01 21:29:58 Jefferson Witt [facility] EXTERNAL PROVIDER RECORDS 2023-06-17 06:01:00 Do ctor Unassigned, Tool [facility] HOME HEALTH - OTHER 2023-04-20 05:01:00 Doctor Nasreen medina, Tool [facility] EXTERNAL PROVIDER RECORDS 2023-03-10 05:01:00 Do ctor Unassigned, Tool [facility] INSURANCE CORRESPONDENCE 2023-02-23 05:01:00 Doc tor Unassigned, Tool [facility] DOWNTIME AMBULATORY DOCUMENTS 2023-01-24 05:01:00 Doctor Unassigned, Tool [facility] ASSIGNMENT OF BENEFITS 2022-12-22 15:12:00 Docto r Unassigned, Tool [facility] DME/SUPPLY JUSTIFICATION 2022-12-08 05:01:00 Doc tor Unassigned, Tool [facility] PATIENT QUESTIONNAIRE 2022-11-25 05:01:00 Doctor Unassigned, Tool [facility] DME/SUPPLY JUSTIFICATION 2022-11-13 05:01:00 Doc tor Unassigned, Tool [facility] POCT MOLECULAR FLU 2022-10-30 16:23:00 Rosette Contreras [facility] POCT MOLECULAR STREP 2022-10-30 16:22:00 Ade Contreras [facility] PATIENT FINANCIAL POLICY 2022-10-30 16:10:54 Doctor Unassigned, Tool [facility] DME/SUPPLY JUSTIFICATION 2022-10-22 05:01:00 Doc tor Unassigned, Tool [facility] HOME HEALTH - OTHER 2022-10-13 05:01:00 Doctor Nasreen medina, Tool [facility] EXTERNAL PROVIDER RECORDS 2022-09-30 06:01:00 Do ctor Unassigned, Tool [facility] DME/SUPPLY JUSTIFICATION 2022-09-25 06:01:00 Doc tor Unassigned, Tool [facility] EXTERNAL PROVIDER RECORDS 2022-09-19 06:01:00 Do ctor Unassigned, Tool [facility] EXTERNAL PROVIDER RECORDS 2022-09-04 06:01:00 Do ctor Unassigned, Tool [facility] HEALTH - OTHER 2022-08-20 06:01:00 Doctor Nasreen medina, Tool [facility] EXTERNAL PROVIDER RECORDS 2022-08-11 06:01:00 Do ctor Unassigned, Tool [facility] HEALTH - OTHER 2022-08-03 06:01:00 Doctor Nasreen medina, Tool [facility] COMP. METABOLIC PANEL ([id number]) 2022-07-19 19:57:00 Jesus Spain [facility] CBC WITH DIFF 2022-07-19 19:57:00 Jesus Spain [facility] LACTIC ACID WHOLE BLOOD 2022-07-19 19:56:00 Do katerin Spain [facility] XR HEEL 2+ VW LEFT 2022-07-19 19:48:20 Jesus Spain [facility] CONSENT/REFUSAL FOR DIAGNOSIS AND TREATMENT 2022-07-19 19:00:48 Doctor Unassigned, Tool [facility] SLEEP STUDY DATA REPORT 2022-06-19 06:01:00 Doct or Unassigned, Tool [facility] LIPASE 2022-05-29 16:08:00 Daylin Mojica [facility] TROPONIN I 2022-05-29 16:08:00 Daylin Mojica [facility] COMP. METABOLIC PANEL ([id number]) 2022-05-29 16:08:00 Daylin Mojica [facility] CBC WITH DIFF 2022-05-29 16:08:00 Daylin Mojica [facility] URINALYSIS 2022-05-29 16:02:00 Daylin Mojica [facility] CONSENT/REFUSAL FOR DIAGNOSIS AND TREATMENT 2022-05-29 15:11:18 Doctor Unassigned, Tool [facility] POCT HEMOGLOBIN A1C TEST 2022-05-23 21:18:00 Giovany Antoine [facility] PHYSICIAN ORDERS 2022-05-08 05:01:00 Doctor Unas signed, Tool [facility] Encounters Start Date/Time End Date/Time Encounter Type Admission Type Attending [facility] Care Facility Care Department Encounter ID Source 2021-06-01 23:56:14 Emergency [facility] [id number] [facility] 2021-06-01 12:13:32 Outpatient BISI CARDOSO [facility] [id number] [facility] 2024-01-08 11:30:00 2024-01-08 11:30:00 Outpatient GIOVANY GOTTI [facility] [id number] [facility] 2024-01-01 14:30:00 2024-01-01 14:30:00 Outpatient GIOVANY GOTTI [facility] [id number] [facility] 2023-09-16 00:00:00 2023-09-16 00:00:00 [facility] 1.2.840.114 350.1.13.10 4.2.7.2.686 [id number] [facility] 2023-09-15 00:00:00 2023-09-15 00:00:00 Refill [facility]ly [facility] MA[facility]ICIO?[facility] 1.2.840.114 350.1.13.10 4.2.7.2.686 [id number] [facility] 2023-09-11 00:00:00 2023-09-11 00:00:00 Refill Bassam WittFormerly [facility] 1.2.840.114 350.1.13.10 4.2.7.2.686 [id number] [facility] 2023-09-11 00:00:00 2023-09-11 00:00:00 [facility] 1.2840.114 350.1.13.10 4.2.7.2.686 [id number] [facility] 2023-09-10 00:00:00 2023-09-10 00:00:00 Telephone [facility] 1.2840.114 350.1.13.10 4.2.7.2.686 [id number] [facility] 2023-09-02 00:00:00 2023-09-02 00:00:00 [facility]ill [facility] 1.2840.114 350.1.13.10 4.2.7.2.686 [id number] [facility] 2023-08-18 00:00:00 2023-08-18 00:00:00 Refill [facility] 1.840.114 350.1.13.10 4.2.7.2.686 [id number] [facility] 2023-08-14 08:45:00 2023-08-14 09:33:25 Outpatient Hany TOBIASSUKHNORA [facility] [id number] [facility] 2023-08-14 08:45:00 2023-08-14 09:00:00 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, Nora Moss ON LICENSE OF [facility] MAURICIO?[facility] 1.840.114 350.1.13.10 4.2.7.2.686 [id number] [facility] 2023-08-10 09:30:00 2023-08-10 09:30:00 [id number] 2023-08-07 00:00:00 2023-08-07 00:00:00 [facility]ill [facility] 1.840.114 350.1.13.10 4.2.7.2.686 [id number] [facility] 2023-08-07 00:00:00 2023-08-07 00:00:00 Refill Giovany Antoine ON LICENSE OF [facility]IC[facility] 1.84.114 350.1.13.10 4.2.7.2.686 [id number] [facility] 2023-08-05 00:00:00 2023-08-05 00:00:00 [facility]ill [facility] 1.84.114 350.1.13.10 4.2.7.2.686 [id number] [facility] 2023-08-04 00:00:00 2023-08-04 00:00:00 Telephone Jefferson [facility] 1.840.114 350.1.13.10 4.2.7.2.686 [id number] [facility] 2023-07-29 00:00:00 2023-07-29 00:00:00 [facility] 1.84.114 350.1.13.10 4.2.7.2.686 [id number] [facility] 2023-07-28 14:40:00 2023-07-28 15:00:00 Urgent Care Ana Riddle, Attending [facility] 1.84.114 350.1.13.10 4.2.7.2.686 [id number] [facility] 2023-07-28 14:40:00 2023-07-28 14:40:00 Outpatient R ANA RIDDLE [facility] [id number] [facility] 2023-07-21 00:00:00 2023-07-21 00:00:00 Telephone Eduar [facility] 1.840.114 350.1.13.10 4.2.7.2.686 [id number] [facility] 2023-07-17 00:00:00 2023-07-17 00:00:00 Telephone Giovany Antoine Claudia [facility] 1.84.114 350.1.13.10 4.2.7.2.686 [id number] [facility] 2023-07-14 00:00:00 2023-07-14 00:00:00 Telephone Eduar Jefferson ON LICENSE OF [facility] MAURICIO?[facility] 1.84.114 350.1.13.10 4.2.7.2.686 [id number] [facility] 2023-07-13 00:00:00 2023-07-13 00:00:00 Orders Only Doctor Unassigned, Tool [facility] 1.114 350.1.13.10 4.2.7.2.686 [id number] [facility] 2023-07-10 11:30:00 2023-07-10 12:21:58 Outpatient R GIOVANY ANTOINE [facility] [id number] [facility] 2023-07-10 11:30:00 2023-07-10 12:21:58 Office Visit Giovany Antoine [facility] 1.840.114 350.1.13.10 4.2.7.2.686 [id number] [facility] 2023-07-09 09:00:00 2023-07-09 09:14:16 Outpatient R CARLA VELASCO [facility] [id number] [facility] 2023-07-09 09:00:00 2023-07-09 09:14:16 Office Visit Carla Velasco ON LICENSE OF [facility] MA[facility]ICIO[facility] 1.84.114 350.1.13.10 4.2.7.2.686 [id number] [facility] 2023-07-07 00:00:00 2023-07-07 00:00:00 Jefferson Katz ON LICENSE OF [facility] MAURICIO?[facility] 1.84.114 350.1.13.10 4.2.7.2.686 [id number] [facility] 2023-07-07 00:00:00 2023-07-07 00:00:00 Refill Eduar [facility] 1.114 350.1.13.10 4.2.7.2.686 [id number] [facility] 2023-07-06 00:00:00 2023-07-06 00:00:00 [facility] 1..114 350.1.13.10 4.2.7.2.686 [id number] [facility] 2023-07-01 15:15:00 2023-07-01 15:39:06 Outpatient R JEFFERSON WITT [facility] [id number] [facility] 2023-07-01 15:15:00 2023-07-01 15:39:06 [facility] 1.114 350.1.13.10 4.2.7.2.686 [id number] [facility] 2023-06-27 00:00:00 2023-06-27 00:00:00 Refill Eduar [facility] 1.114 350.1.13.10 4.2.7.2.686 [id number] [facility] 2023-06-23 00:00:00 2023-06-23 00:00:00 [facility] 1..114 350.1.13.10 4.2.7.2.686 [id number] 044 [id number] [facility] 2023-06-17 00:00:00 2023-06-17 00:00:00 Orders Only Doctor Unassigned, Tool [facility] 1.114 350.1.13.10 4.2.7.2.686 [id number] [id number] [facility] 2023-06-15 00:00:00 2023-06-15 00:00:00 Telephone Jefferson Witt [facility] MIRNA GLEASON?[facility] 1.2.114 350.1.13.10 4.2.7.2.686 [id number] 044 [id number] [facility] 2023-06-08 00:00:00 2023-06-08 00:00:00 Refill Jefefrson Witt [facility] 1..114 350.1.13.10 4.2.7.2.686 [id number] 044 [id number] [facility] 2023-06-03 00:00:00 2023-06-03 00:00:00 Telephone Jefferson [facility] MEDICAL OFFICE BUILD[facility] 1..114 350.1.13.10 4.2.7.2.686 [id number] 044 [id number] [facility] 2023-06-03 00:00:00 2023-06-03 00:00:00 Telephone Jefferson Witt [facility] MED[facility] OFF[facility] 1.114 350.1.13.10 4.2.7.2.686 [id number] 044 [id number] [facility] 2023-05-19 00:00:00 2023-05-19 00:00:00 Telephone Jefferson Witt [facility] 1..114 350.1.13.10 4.2.7.2.686 [id number] 044 [id number] [facility] 2023-05-19 00:00:00 2023-05-19 00:00:00 Patient Secure Msg Doctor Unassigned, Tool [facility] MIRNA G[facility]ON[facility] MED[facility] OFF[facility] BU[facility] 1.20.114 350.1.13.10 4.2.7.2.686 [id number] 044 [id number] [facility] 2023-05-14 09:30:00 2023-05-14 09:30:00 Outpatient JEFFERSON PEREZ [facility] [id number] [facility] 2023-05-13 00:00:00 2023-05-13 00:00:00 Refill Eduar Critical access hospital?[facility] OFFICE BUILD[facility] 1.2.840.114 350.1.13.10 4.2.7.2.686 [id number] 044 [id number] [facility] 2023-05-13 00:00:00 2023-05-13 00:00:00 Refprabhjot Eduar Critical access hospital?[facility] OFFICE BUILD[facility] 1.2.840.114 350.1.13.10 4.2.7.2.686 [id number] 044 [id number] [facility] 2023-05-13 00:00:00 2023-05-13 00:00:00 Refprabhjot Elina Giovany [facility] 1.2840.114 350.1.13.10 4.2.7.2.686 [id number] 220 [id number] [facility] 2023-05-12 10:45:00 2023-05-12 11:00:00 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 Mary, Jefferson Quispe [facility] BUILDING 1.2.840.114 350.1.13.10 4.2.7.2.686 [id number] [facility] 2023-05-12 10:45:00 2023-05-12 10:45:00 Outpatient JEFFERSON PEREZ [facility] [id number] [facility] 2023-05-11 14:15:00 2023-05-11 14:30:00 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 Fritz Sepulveda [facility] MED[facility] OFFICE BUILD[facility] 1.2.840.114 350.1.13.10 4.2.7.2.686 [id number] [facility] 2023-05-11 14:15:00 2023-05-11 14:15:00 Outpatient R JEFFERSON WITT [facility] [id number] [facility] 2023-05-11 13:30:00 2023-05-11 13:45:00 [facility] MED[facility] OFFICE BUILDING 1.2.840.114 350.1.13.10 4.2.7.2.686 [id number] 044 [id number] [facility] 2023-05-08 00:00:00 2023-05-08 00:00:00 Telephone Jefferson Witt [facility] 1.2.840.114 350.1.13.10 4.2.7.2.686 [id number] 044 [id number] [facility] 2023-05-07 00:00:00 2023-05-07 00:00:00 Telephone Jefferson Witt [facility] MED[facility] OFFICE BU[facility] 1.2.840.114 350.1.13.10 4.2.7.2.686 [id number] 044 [id number] [facility] 2023-05-06 10:00:00 2023-05-06 10:00:00 Outpatient JEFFERSON PEREZ [facility] [id number] [facility] 2023-04-30 00:00:00 2023-04-30 00:00:00 [facility] 1.2.840.114 350.1.13.10 4.2.7.2.686 [id number] 044 [id number] [facility] 2023-04-30 00:00:00 2023-04-30 00:00:00 Giovany Morton ON LICENSE OF [facility] MAURICIO?MARISELA [facility] MEDICAL OFFICE BUILDING 1.2840.114 350.1.13.10 4.2.7.2.686 [id number] [facility] 2023-04-29 00:00:00 2023-04-29 00:00:00 Telephone Jefferson Witt ON LICENSE OF [facility] MAURICIO?MARISELA [facility] MEDICAL OFFICE BUILDING 1.2840.114 350.1.13.10 4.2.7.2.686 [id number] 044 [id number] [facility] 2023-04-27 00:00:00 2023-04-27 00:00:00 Telephone Eduar Jefferson ON LICENSE OF [facility] MAURICIO?MARISELA [facility] MEDICAL OFFICE BUILDING 1.2840.114 350.1.13.10 4.2.7.2.686 [id number] 044 [id number] [facility] 2023-04-20 00:00:00 2023-04-20 00:00:00 Orders Only Doctor Unassigned, Tool [facility] 1.840.114 350.1.13.10 4.2.7.2.686 [id number] [id number] [facility] 2023-04-15 00:00:00 2023-04-15 00:00:00 Telephone Jefferson Witt ON LICENSE OF [facility] MA[facility]ICIO[facility] MED[facility] OFFICE BUILDING 1.2840.114 350.1.13.10 4.2.7.2.686 [id number] 044 [id number] [facility] 2023-04-13 00:00:00 2023-04-13 00:00:00 Refprabhjot Witt Jefferson ON LICENSE OF [facility] MA[facility]ICIO[facility] OFF[facility] BUILD[facility] 1.2840.114 350.1.13.10 4.2.7.2.686 [id number] 044 [id number] [facility] 2023-04-13 00:00:00 2023-04-13 00:00:00 Telephone Jefferson Witt ON LICENSE OF [facility] MA[facility]ICIO?[facility] 1..840.114 350.1.13.10 4.2.7.2.686 [id number] 044 [id number] [facility] 2023-04-08 09:30:00 2023-04-08 09:46:20 Outpatient R JEFFERSON WITT [facility] [id number] [facility] 2023-04-08 09:30:00 2023-04-08 09:46:20 Office Visit [facility] MA[facility]ICIO?MARISELA [facility] MEDICAL OFFICE BUILDING 1..840.114 350.1.13.10 4.2.7.2.686 [id number] 044 [id number] [facility] 2023-04-07 00:00:00 2023-04-07 00:00:00 Telephone Bassam WittFormerly [facility] MAURICIO?MARISELA [facility] MEDICAL OFFICE BUILDING 1..840.114 350.1.13.10 4.2.7.2.686 [id number] 044 [id number] [facility] 2023-04-02 10:15:00 2023-04-02 10:15:00 Outpatient JEFFERSON PEREZ [facility] [id number] [facility] 2023-03-30 12:00:00 2023-03-30 12:00:00 Outpatient R JEFFERSON WITT [facility] [id number] [facility] 2023-03-28 00:00:00 2023-03-28 00:00:00 Nurse Triage Alana Baptiste [facility] 1..840.114 350.1.13.10 4.2.7.2.686 [id number] 019 [id number] [facility] 2023-03-28 00:00:00 2023-03-28 00:00:00 [facility] MED[facility] OFFICE BUILDING 1.840.114 350.1.13.10 4.2.7.2.686 [id number] 044 [id number] [facility] 2023-03-27 00:00:00 2023-03-27 00:00:00 Telephone Jefferson Witt ON LICENSE OF [facility] MAURICIO?MARISELA [facility] MEDICAL OFFICE BUILDING 1.840.114 350.1.13.10 4.2.7.2.686 [id number] 044 [id number] [facility] 2023-03-26 13:00:00 2023-03-26 13:15:00 Office Visit Jefferson Witt ON LICENSE OF [facility]ICIO[facility] OFFICE BUILDING 1.84.114 350.1.13.10 4.2.7.2.686 [id number] 044 [id number] [facility] 2023-03-26 13:00:00 2023-03-26 13:00:00 Outpatient JEFFERSON PEREZ [facility] [id number] [facility] 2023-03-26 00:00:00 2023-03-26 00:00:00 Telephone [facility] MED[facility] OFFICE BUILDING 1.84.114 350.1.13.10 4.2.7.2.686 [id number] 044 [id number] [facility] 2023-03-23 12:57:00 2023-03-23 12:57:00 Outpatient Suma Mariano [facility] [id number] [facility] 2023-03-20 12:30:00 2023-03-20 12:30:00 Outpatient ROSETTE ROME [facility] [id number] [facility] 2023-03-16 00:00:00 2023-03-16 00:00:00 Giovany Morton [facility] 1..840.114 350.1.13.10 4.2.7.2.686 [id number] [facility] 2023-03-10 00:00:00 2023-03-10 00:00:00 Orders Only Doctor Unassigned, Tool [facility] 1.2840.114 350.1.13.10 4.2.7.2.686 [id number] 009 [id number] [facility] 2023-02-24 00:00:00 2023-02-24 00:00:00 Telephone Giovany Antoine [facility] 1.840.114 350.1.13.10 4.2.7.2.686 [id number] 220 [id number] [facility] 2023-02-23 00:00:00 2023-02-23 00:00:00 Orders Only Doctor Unassigned, Tool [facility] 1.2840.114 350.1.13.10 4.2.7.2.686 [id number] 009 [id number] [facility] 2023-02-20 00:00:00 2023-02-20 00:00:00 Refill Giovany Antoine [facility] 1.2840.114 350.1.13.10 4.2.7.2.686 [id number] 220 [id number] [facility] 2023-02-20 00:00:00 2023-02-20 00:00:00 Refill Jefferson Witt [facility] 1..840.114 350.1.13.10 4.2.7.2.686 [id number] 044 [id number] [facility] 2023-02-13 11:00:00 2023-02-13 11:00:00 Outpatient R GIOVANY ANTOINE [facility] [id number] [facility] 2023-02-12 00:00:00 2023-02-12 00:00:00 Refill Jefferson Witt [facility] 1.2840.114 350.1.13.10 4.2.7.2.686 [id number] 044 [id number] [facility] 2023-02-11 09:45:00 2023-02-11 10:00:00 Office Visit Jefferson Witt [facility] MIRNA GLEASON?[facility] 1.2840.114 350.1.13.10 4.2.7.2.686 [id number] 044 [id number] [facility] 2023-02-11 09:45:00 2023-02-11 09:45:00 Outpatient R JEFFERSON WITT [facility] [id number] [facility] 2023-02-05 00:00:00 2023-02-05 00:00:00 Telephone Bassam WittFormerly [facility] MAURICIO?MARISELA [facility] MEDICAL OFFICE BUILDING 1.20.114 350.1.13.10 4.2.7.2.686 [id number] 044 [id number] [facility] 2023-02-04 00:00:00 2023-02-04 00:00:00 Telephone Jefferson Witt [facility]A [facility] MEDICAL OFFICE BUILDING 1.2840.114 350.1.13.10 4.2.7.2.686 [id number] 044 [id number] [facility] 2023-01-26 00:00:00 2023-01-26 00:00:00 [facility] MEDICAL OFFICE BUILDING 1.2840.114 350.1.13.10 4.2.7.2.686 [id number] 044 [id number] [facility] 2023-01-26 00:00:00 2023-01-26 00:00:00 Telephone Jefferson Witt [facility] MED[facility] OFFICE BUILDING 1.2840.114 350.1.13.10 4.2.7.2.686 [id number] 044 [id number] [facility] 2023-01-24 11:00:00 2023-01-24 11:20:00 Urgent Care Richard Vidal Unknown, Attending [facility]?MAR[facility]A [facility] MEDICAL OFFICE BUILDING 1.840.114 350.1.13.10 4.2.7.2.686 [id number] [facility] 2023-01-24 11:00:00 2023-01-24 11:00:00 Outpatient R RICHARD VIDAL [facility] [id number] [facility] 2023-01-24 00:00:00 2023-01-24 00:00:00 Orders Only Doctor Unassigned, Tool [facility] 1.840.114 350.1.13.10 4.2.7.2.686 [id number] 009 [id number] [facility] 2023-01-19 00:00:00 2023-01-19 00:00:00 Telephone Giovany Antoine [facility] 1.840.114 350.1.13.10 4.2.7.2.686 [id number] 220 [id number] [facility] 2023-01-12 10:15:00 2023-01-12 10:15:00 Outpatient JEFFERSON PEREZ [facility] [id number] [facility] 2023-01-09 00:00:00 2023-01-09 00:00:00 Refill Eduar Jefferson ON LICENSE OF [facility] 1.840.114 350.1.13.10 4.2.7.2.686 [id number] 044 [id number] [facility] 2023-01-09 00:00:00 2023-01-09 00:00:00 Refill Eduar Jefferson ON LICENSE OF [facility] 1.2840.114 350.1.13.10 4.2.7.2.686 [id number] 044 [id number] [facility] 2023-01-07 00:00:00 2023-01-07 00:00:00 Telephone Jefferson Witt [facility] MED[facility] OFFICE BUILDING 1.2840.114 350.1.13.10 4.2.7.2.686 [id number] 044 [id number] [facility] 2023-01-02 00:00:00 2023-01-02 00:00:00 Refill Cande Daniel ON LICENSE OF [facility] 1.2840.114 350.1.13.10 4.2.7.2.686 [id number] 044 [id number] [facility] 2023-01-01 00:00:00 2023-01-01 00:00:00 Refill Eduar Jefferson [facility] 1.2840.114 350.1.13.10 4.2.7.2.686 [id number] 044 [id number] [facility] 2023-01-01 00:00:00 2023-01-01 00:00:00 Telephone Eduar Jefferson [facility] MEDICAL OFFICE BUILDING 1.2840.114 350.1.13.10 4.2.7.2.686 [id number] 044 [id number] [facility] 2022-12-31 00:00:00 2022-12-31 00:00:00 Telephone Eduar Jefferson [facility] MEDICAL OFFICE BUILDING 1.2840.114 350.1.13.10 4.2.7.2.686 [id number] 044 [id number] [facility] 2022-12-28 00:00:00 2022-12-28 00:00:00 Refill Giovany Antoine ON LICENSE OF [facility] 1.840.114 350.1.13.10 4.2.7.2.686 [id number] 220 [id number] [facility] 2022-12-24 00:00:00 2022-12-24 00:00:[address] [facility] 1.840.114 350.1.13.10 4.2.7.2.686 [id number] 059 [id number] [facility] 2022-12-22 10:30:00 2022-12-22 10:46:35 Outpatient R DANIEL CASTELLON [facility] [id number] [facility] 2022-12-22 10:30:00 2022-12-22 10:46:35 Office [facility] 1.0.114 350.1.13.10 4.2.7.2.686 [id number] 044 [id number] [facility] 2022-12-22 00:00:00 2022-12-22 00:00:00 Orders Only Doctor Unassigned, Tool [facility] 1.840.114 350.1.13.10 4.2.7.2.686 [id number] [id number] [facility] 2022-12-17 00:00:00 2022-12-17 00:00:00 [facility] 1.840.114 350.1.13.10 4.2.7.2.686 [id number] 044 [id number] [facility] 2022-12-16 00:00:00 2022-12-16 00:00:00 [facility] 1.840.114 350.1.13.10 4.2.7.2.686 [id number] 044 [id number] [facility] 2022-12-15 00:00:00 2022-12-15 00:00:00 Refill Jefferson Witt [facility] MEDICAL OFFICE BUILDING 1.2.840.114 350.1.13.10 4.2.7.2.686 [id number] 044 [id number] [facility] 2022-12-15 00:00:00 2022-12-15 00:00:00 Telephone Jefferson Witt [facility] MED[facility] OFFICE BUILDING 1.2.840.114 350.1.13.10 4.2.7.2.686 [id number] 044 [id number] [facility] 2022-12-11 00:00:00 2022-12-11 00:00:00 Telephone Jefferson Witt [facility] OFF[facility] BUILD[facility] 1.2.840.114 350.1.13.10 4.2.7.2.686 [id number] 044 [id number] [facility] 2022-12-10 00:00:00 2022-12-10 00:00:00 Telephone Jefferson Witt [facility] MED[facility] OFFICE BUILDING 1.2.840.114 350.1.13.10 4.2.7.2.686 [id number] 044 [id number] [facility] 2022-12-09 00:00:00 2022-12-09 00:00:00 Telephone Jefferson Witt [facility] MED[facility] OFF[facility] BUILDING 1.2.840.114 350.1.13.10 4.2.7.2.686 [id number] 044 [id number] [facility] 2022-12-08 00:00:00 2022-12-08 00:00:00 Telephone Jefferson Witt [facility] BUILD[facility] 1.2.840.114 350.1.13.10 4.2.7.2.686 [id number] 044 [id number] [facility] 2022-12-08 00:00:00 2022-12-08 00:00:00 Orders Only Doctor Unassigned, Tool [facility] 1.114 350.1.13.10 4.2.7.2.686 [id number] 009 [id number] [facility] 2022-12-06 00:00:00 2022-12-06 00:00:00 Refill Marylou Gamino ON LICENSE OF [facility] 1.114 350.1.13.10 4.2.7.2.686 [id number] 220 [id number] [facility] 2022-12-06 00:00:00 2022-12-06 00:00:00 Refill Jefferson Witt ON LICENSE OF [facility] 1.114 350.1.13.10 4.2.7.2.686 [id number] 044 [id number] [facility] 2022-12-03 08:45:00 2022-12-03 08:45:00 Outpatient JEFFERSON PEREZ [facility] [id number] [facility] 2022-12-03 00:00:00 2022-12-03 00:00:00 Telephone [facility] 1.84114 350.1.13.10 4.2.7.2.686 [id number] 044 [id number] [facility] 2022-12-01 00:00:00 2022-12-01 00:00:00 Telephone [facility] Antoine [facility] 1.114 350.1.13.10 4.2.7.2.686 [id number] 220 [id number] [facility] 2022-11-27 10:30:00 2022-11-27 10:45:00 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, Fritz Witt [facility] 1.84.114 350.1.13.10 4.2.7.2.686 [id number] [facility] 2022-11-27 10:30:00 2022-11-27 10:30:00 Outpatient R JEFFERSON WITT [facility] [id number] [facility] 2022-11-27 10:00:00 2022-11-27 10:15:00 Office Visit Eduar [facility] hospital?[facility] 1.0.114 350.1.13.10 4.2.7.2.686 [id number] 044 [id number] [facility] 2022-11-25 00:00:00 2022-11-25 00:00:00 Orders Only Doctor Unassigned, Tool [facility] 1.2840.114 350.1.13.10 4.2.7.2.686 [id number] 009 [id number] [facility] 2022-11-13 00:00:00 2022-11-13 00:00:00 Orders Only Doctor Unassigned, Tool [facility] 1.2840.114 350.1.13.10 4.2.7.2.686 [id number] 009 [id number] [facility] 2022-11-12 09:30:00 2022-11-12 09:45:52 Outpatient R JEFFERSON WITT [facility] [id number] [facility] 2022-11-12 09:30:00 2022-11-12 09:45:52 Office Visit Eduar Critical [facility] hospital[facility] 1.2840.114 350.1.13.10 4.2.7.2.686 [id number] 044 [id number] [facility] 2022-11-12 00:00:00 2022-11-12 00:00:00 Tele[facility] 1.114 350.1.13.10 4.2.7.2.686 [id number] [id number] [facility] 2022-11-12 00:00:00 2022-11-12 00:00:00 [facility] 1..114 350.1.13.10 4.2.7.2.686 [id number] [facility] 2022-11-10 09:20:00 2022-11-10 09:20:00 Outpatient CLAUDIA OWUSU [facility] [id number] [facility] 2022-11-07 00:00:00 2022-11-07 00:00:00 [facility]A [facility] 1.114 350.1.13.10 4.2.7.2.686 [id number] [facility] 2022-11-06 12:30:00 2022-11-06 12:30:00 Outpatient JEFFERSON PEREZ [facility] [id number] [facility] 2022-11-04 00:00:00 2022-11-04 00:00:00 [facility]MARISELA [facility] 1.114 350.1.13.10 4.2.7.2.686 [id number] [facility] 2022-11-04 00:00:00 2022-11-04 00:00:00 Patient Secure Msg Doctor Unassigned, Tool [facility] 1..114 350.1.13.10 4.2.7.2.686 [id number] [facility] 2022-11-03 12:30:00 2022-11-03 12:30:00 Outpatient JEFFERSON PEREZ [facility] [id number] [facility] 2022-10-30 11:30:00 2022-10-30 11:50:04 Outpatient R ROSETTE CONTRERAS [facility] [id number] [facility] 2022-10-30 11:30:00 2022-10-30 11:50:04 Office Visit Rosette Contreras ON LICENSE OF [facility] MAURICIO?[facility] 1.840.114 350.1.13.10 4.2.7.2.686 [id number] [facility] 2022-10-30 00:00:00 2022-10-30 00:00:00 Orders Only Doctor Unassigned, Tool [facility] 1..114 350.1.13.10 4.2.7.2.686 [id number] [facility] 2022-10-30 00:00:00 2022-10-30 00:00:[address] [facility] 1..114 350.1.13.10 4.2.7.2.686 [id number] [facility] 2022-10-29 08:30:00 2022-10-29 08:30:00 Outpatient JEFFERSON PEREZ [facility] [id number] [facility] 2022-10-28 00:00:00 2022-10-28 00:00:00 Telephone Eduar [place] ON LICENSE OF [facility] MAURICIO?[facility] 1.84.114 350.1.13.10 4.2.7.2.686 [id number] [id number] [facility] 2022-10-24 00:00:00 2022-10-24 00:00:00 Refill Eduar [place] ON LICENSE OF [facility] MAURICIO?[facility] 1.84.114 350.1.13.10 4.2.7.2.686 [id number] [facility] [facility] 2022-10-23 00:00:00 2022-10-23 00:00:00 Telephone Eduar Critical access hospital?[facility] 1.2840.114 350.1.13.10 4.2.7.2.686 [id number] 044 [id number] [facility] 2022-10-22 00:00:00 2022-10-22 00:00:00 Orders Only Doctor Unassigned, Tool [facility] 1.2840.114 350.1.13.10 4.2.7.2.686 [id number] 009 [id number] [facility] 2022-10-20 00:00:00 2022-10-20 00:00:00 Telephone Eduar Critical access hospital?[facility] OFF[facility] 1.2840.114 350.1.13.10 4.2.7.2.686 [id number] 044 [id number] [facility] 2022-10-16 00:00:00 2022-10-16 00:00:00 Telephone Claudia Porter [facility] BU[facility] 1.2840.114 350.1.13.10 4.2.7.2.686 [id number] 059 [id number] [facility] 2022-10-15 00:00:00 2022-10-15 00:00:00 Refill Eduar Critical access hospital?[facility] OFF[facility] 1.2840.114 350.1.13.10 4.2.7.2.686 [id number] 044 [id number] [facility] 2022-10-13 00:00:00 2022-10-13 00:00:00 Orders Only Doctor Unassigned, Tool [facility] 1.2840.114 350.1.13.10 4.2.7.2.686 [id number] [id number] [facility] 2022-10-09 12:30:00 2022-10-09 12:30:00 Outpatient R ROSETTE CONTRERAS [facility] [id number] [facility] 2022-10-09 08:30:00 2022-10-09 08:30:00 Outpatient R ION HOBBS [facility] [id number] [facility] 2022-10-06 00:00:00 2022-10-06 00:00:00 Refill Jefferson Witt [facility] 1..840.114 350.1.13.10 4.2.7.2.686 [id number] 044 [id number] [facility] 2022-10-03 00:00:00 2022-10-03 00:00:[address] [facility] 1..840.114 350.1.13.10 4.2.7.2.686 [id number] 059 [id number] [facility] 2022-10-01 13:00:00 2022-10-01 13:00:00 Outpatient CLAUDIA OWUSU [facility] [id number] [facility] 2022-09-30 00:00:00 2022-09-30 00:00:00 Orders Only Doctor Unassigned, Tool [facility] 1.2.840.114 350.1.13.10 4.2.7.2.686 [id number] 009 [id number] [facility] 2022-09-25 00:00:00 2022-09-25 00:00:00 Orders Only Doctor Unassigned, Tool [facility] 1.2.840.114 350.1.13.10 4.2.7.2.686 [id number] 009 [id number] [facility] 2022-09-24 00:00:00 2022-09-24 00:00:00 Telephone [facility], [facility] 1.0.114 350.1.13.10 4.2.7.2.686 [id number] 044 [id number] [facility] 2022-09-23 00:00:00 2022-09-23 00:00:00 Telephone Jefferson Witt [facility] 1.840.114 350.1.13.10 4.2.7.2.686 [id number] 044 [id number] [facility] 2022-09-22 00:00:00 2022-09-22 00:00:00 RefMarylou Lerma ON LICENSE OF [facility] 1..114 350.1.13.10 4.2.7.2.686 [id number] 220 [id number] [facility] 2022-09-19 10:30:00 2022-09-19 10:30:00 Outpatient R GIOVANY ANTOINE [facility] [id number] [facility] 2022-09-19 00:00:00 2022-09-19 00:00:00 Orders Only Doctor Unassigned, Tool [facility] 1..114 350.1.13.10 4.2.7.2.686 [id number] 009 [id number] [facility] 2022-09-18 00:00:00 2022-09-18 00:00:00 Telephone Giovany Antoine ON LICENSE OF [facility] MEDICAL OFFICE BUILDING 1..114 350.1.13.10 4.2.7.2.686 [id number] 220 [id number] [facility] 2022-09-17 00:00:00 2022-09-17 00:00:00 Telephone Eduar [facility] MEDICAL OFFICE BUILDING 1.0.114 350.1.13.10 4.2.7.2.686 [id number] 044 [id number] [facility] 2022-09-15 00:00:00 2022-09-15 00:00:00 Telephone [facility] 1.84.114 350.1.13.10 4.2.7.2.686 [id number] 220 [id number] [facility] 2022-09-11 00:00:00 2022-09-11 00:00:00 Telephone Witt, Jefferson ON LICENSE OF [facility] 1.84.114 350.1.13.10 4.2.7.2.686 [id number] 044 [id number] [facility] 2022-09-10 09:00:00 2022-09-10 09:30:00 Office Visit Eduar Jefferson [facility] 1.84.114 350.1.13.10 4.2.7.2.686 [id number] 044 [id number] [facility] 2022-09-10 09:00:00 2022-09-10 09:00:00 Outpatient R JEFFERSON WITT [facility] [id number] [facility] 2022-09-10 00:00:00 2022-09-10 00:00:00 Refill Eduar Jefferson [facility] 1.84.114 350.1.13.10 4.2.7.2.686 [id number] 044 [id number] [facility] 2022-09-04 00:00:00 2022-09-04 00:00:00 Orders Only Doctor Unassigned, Tool [facility] 1.84.114 350.1.13.10 4.2.7.2.686 [id number] 009 [id number] [facility] 2022-09-02 00:00:00 2022-09-02 00:00:00 Refill Witt, [facility] 1.2.840.114 350.1.13.10 4.2.7.2.686 [id number] 044 [id number] [facility] 2022-09-02 00:00:00 2022-09-02 00:00:00 Telephone Jefferson [facility] 1.2.840.114 350.1.13.10 4.2.7.2.686 [id number] 044 [id number] [facility] 2022-09-01 00:00:00 2022-09-01 00:00:00 Telephone Jefferson Witt ON LICENSE OF [facility] 1.2.840.114 350.1.13.10 4.2.7.2.686 [id number] 044 [id number] [facility] 2022-08-25 00:00:00 2022-08-25 00:00:00 Telephone Jefferson Witt ON LICENSE OF [facility] 1.2840.114 350.1.13.10 4.2.7.2.686 [id number] 044 [id number] [facility] 2022-08-20 00:00:00 2022-08-20 00:00:00 Refill Eduar [facility] 1.2.840.114 350.1.13.10 4.2.7.2.686 [id number] 044 [id number] [facility] 2022-08-20 00:00:00 2022-08-20 00:00:00 Orders Only Doctor Unassigned, Tool [facility] 1.2.840.114 350.1.13.10 4.2.7.2.686 [id number] 009 [id number] [facility] 2022-08-16 00:00:00 2022-08-16 00:00:00 RefMarylou Lerma ON LICENSE OF [facility] MEDICAL OFFICE BUILDING 1.2840.114 350.1.13.10 4.2.7.2.686 [id number] 220 [id number] [facility] 2022-08-16 00:00:00 2022-08-16 00:00:00 Refill Jefferson Witt ON [facility] MED[facility] OFFICE BUILD[facility] 1.2840.114 350.1.13.10 4.2.7.2.686 [id number] 044 [id number] [facility] 2022-08-14 00:00:00 2022-08-14 00:00:00 Telephone Jefferson Witt ON LICENSE OF [facility] 1.2840.114 350.1.13.10 4.2.7.2.686 [id number] 044 [id number] [facility] 2022-08-11 00:00:00 2022-08-11 00:00:00 Orders Only Doctor Unassigned, Tool [facility] 1.2840.114 350.1.13.10 4.2.7.2.686 [id number] 009 [id number] [facility] 2022-08-09 00:00:00 2022-08-09 00:00:00 Telephone Jefferson Witt ON [facility] MED[facility] OFFICE BUILD[facility] 1.2840.114 350.1.13.10 4.2.7.2.686 [id number] 044 [id number] [facility] 2022-08-08 00:00:00 2022-08-08 00:00:00 Telephone Jefferson Witt [facility] MED[facility] OFFICE BUILDING 1.2840.114 350.1.13.10 4.2.7.2.686 [id number] 044 [id number] [facility] 2022-08-08 00:00:00 2022-08-08 00:00:00 Telephone Witt, [facility] 1.2840.114 350.1.13.10 4.2.7.2.686 [id number] 044 [id number] [facility] 2022-08-07 12:00:00 2022-08-07 12:15:00 [facility] 1.2840.114 350.1.13.10 4.2.7.2.686 [id number] 044 [id number] [facility] 2022-08-07 12:00:00 2022-08-07 12:00:00 Outpatient R JEFFERSON WITT [facility] [id number] [facility] 2022-08-03 00:00:00 2022-08-03 00:00:00 Nurse Triage Oleg Weems [facility] 1.840.114 350.1.13.10 4.2.7.2.686 [id number] 019 [id number] [facility] 2022-08-03 00:00:00 2022-08-03 00:00:00 Orders Only Doctor Unassigned, Tool [facility] 1.2.840.114 350.1.13.10 4.2.7.2.686 [id number] 009 [id number] [facility] 2022-07-29 00:00:00 2022-07-29 00:00:00 [facility] 1.2840.114 350.1.13.10 4.2.7.2.686 [id number] 044 [id number] [facility] 2022-07-22 00:00:00 2022-07-22 00:00:00 Refill Marylou Gamino ON LICENSE OF [facility] 1.2840.114 350.1.13.10 4.2.7.2.686 [id number] 220 [id number] [facility] 2022-07-21 00:00:00 2022-07-21 00:00:00 Telephone Jonn Claudia Lesli [facility] BUILDING 1.2.840.114 350.1.13.10 4.2.7.2.686 [id number] 059 [id number] [facility] 2022-07-19 13:12:00 2022-07-19 16:24:[address] [facility] ERT [id number] [facility] 2022-07-19 13:12:00 2022-07-19 16:24:00 Emergency Grabiel Jesus [facility] 1.2840.114 350.1.13.10 4.2.7.2.686 [id number] 084 [id number] [facility] 2022-07-17 00:00:00 2022-07-17 00:00:00 Telephone Eduar Critical access hospital?[facility] MEDICAL OFFICE BUILDING 1.2.840.114 350.1.13.10 4.2.7.2.686 [id number] 044 [id number] [facility] 2022-07-16 10:30:00 2022-07-16 11:00:00 Office Visit Rachell Ahmadi [facility] 1.2.840.114 350.1.13.10 4.2.7.2.686 [id number] 085 [id number] [facility] 2022-07-16 10:30:00 2022-07-16 10:30:00 Outpatient R RACHELL AHMADI STRAHIL [facility] [id number] [facility] 2022-07-15 00:00:00 2022-07-15 00:00:00 [facility] 1.2.840.114 350.1.13.10 4.2.7.2.686 [id number] 044 [id number] [facility] 2022-07-14 00:00:00 2022-07-14 00:00:00 Telephone Claudia Porter [facility] BUILDING 1.2.840.114 350.1.13.10 4.2.7.2.686 [id number] 059 [id number] [facility] 2022-07-07 00:00:00 2022-07-07 00:00:00 Telephone Claudia Porter [facility] BUILD[facility] 1.2.840.114 350.1.13.10 4.2.7.2.686 [id number] 059 [id number] [facility] 2022-07-03 11:30:00 2022-07-03 11:30:00 Outpatient ROSETTE ROME [facility] [id number] [facility] 2022-07-02 00:00:00 2022-07-02 00:00:00 Refill Eduar Critical access hospital?[facility]A [facility] MEDICAL OFFICE BUILDING 1.2.840.114 350.1.13.10 4.2.7.2.686 [id number] 044 [id number] [facility] 2022-06-30 00:00:00 2022-06-30 00:00:00 Refill Eduar Critical [facility] MED[facility] OFFICE BUILDING 1.2.840.114 350.1.13.10 4.2.7.2.686 [id number] 044 [id number] [facility] 2022-06-30 00:00:00 2022-06-30 00:00:00 Telephone Claudia Porter [facility] BUILD[facility] 1.2.840.114 350.1.13.10 4.2.7.2.686 [id number] 059 [id number] [facility] 2022-06-25 00:00:00 2022-06-25 00:00:00 Telephone BenRosette [facility] 1.84.114 350.1.13.10 4.2.7.2.686 [id number] 044 [id number] [facility] 2022-06-19 13:00:00 2022-06-19 13:15:00 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 Rachell Ahmadi [facility] 1.114 350.1.13.10 4.2.7.2.686 [id number] [facility] 2022-06-19 13:00:00 2022-06-19 13:00:00 Outpatient R RACHELL AHMADI STRASHARONL [facility] [id number] [facility] 2022-06-19 00:00:00 2022-06-19 00:00:00 Orders Only Doctor Unassigned, Tool [facility] 1.114 350.1.13.10 4.2.7.2.686 [id number] [id number] [facility] 2022-06-19 00:00:00 2022-06-19 00:00:00 Refill Eduar Jefferson [facility] 1.840.114 350.1.13.10 4.2.7.2.686 [id number] 044 [id number] [facility] 2022-06-18 13:00:00 2022-06-18 13:00:00 Outpatient R RACHELL AHMADI, STRAMNL [facility] [id number] [facility] 2022-06-17 00:00:00 2022-06-17 00:00:00 Telephone Eduar Jefferson [facility] 1.840.114 350.1.13.10 4.2.7.2.686 [id number] 044 [id number] [facility] 2022-06-17 00:00:00 2022-06-17 00:00:00 Patient Secure Msg Doctor Unassigned, Tool ON LICENSE OF [facility] 1.284.114 350.1.13.10 4.2.7.2.686 [id number] 044 [id number] [facility] 2022-06-16 11:44:53 2022-06-16 11:44:53 Outpatient SFA NICK [id number] Glen Gutierrez 2022-06-16 00:00:00 2022-06-16 00:00:00 Telephone JonnChavomalachi Ballesteros [facility] BUILD[facility] 1.284.114 350.1.13.10 4.2.7.2.686 [id number] 059 [id number] [facility] 2022-06-13 11:15:00 2022-06-13 11:30:00 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, 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 Claudia Porter Lesli [facility] BUILDING 1.84.114 350.1.13.10 4.2.7.2.686 [id number] [facility] 2022-06-13 11:15:00 2022-06-13 11:15:00 Outpatient R CLAUDIA PORTER [facility] [id number] [facility] 2022-06-12 00:00:00 2022-06-12 00:00:00 Telephone Claudia Porter [facility] BUILD[facility] 1.2.840.114 350.1.13.10 4.2.7.2.686 [id number] 059 [id number] [facility] 2022-06-12 00:00:00 2022-06-12 00:00:00 Telephone Jefferson Witt ON LICENSE OF [facility] 1.284.114 350.1.13.10 4.2.7.2.686 [id number] 044 [id number] [facility] 2022-06-11 10:08:55 2022-06-11 23:59:00 Outpatient R JEFFERSON WITT [facility] [id number] [facility] 2022-06-11 10:08:55 2022-06-11 23:59:00 Hospital Encounter Jefferson Witt [facility] 1..840.114 350.1.13.10 4.2.7.2.686 [id number] [facility] 2022-06-10 14:20:00 2022-06-10 16:26:04 Outpatient R CLAUDIA PORTER [facility] [id number] [facility] 2022-06-10 14:20:00 2022-06-10 16:26:04 Office Visit Claudia [facility] 1..840.114 350.1.13.10 4.2.7.2.686 [id number] 059 [id number] [facility] 2022-06-05 00:00:00 2022-06-05 00:00:00 Refill Marylou Gamino [facility] 1..840.114 350.1.13.10 4.2.7.2.686 [id number] [facility] 2022-06-04 10:30:00 2022-06-04 11:55:43 Outpatient R ROSETTE CONTRERAS [facility] [id number] [facility] 2022-06-04 10:30:00 2022-06-04 11:55:43 Office Visit Rosette Contreras [facility] 1..840.114 350.1.13.10 4.2.7.2.686 [id number] 044 [id number] [facility] 2022-06-04 00:00:00 2022-06-04 00:00:00 Refill Witt, [facility] 1.2.840.114 350.1.13.10 4.2.7.2.686 [id number] 044 [id number] [facility] 2022-05-29 10:17:00 2022-05-29 14:59:00 Emergency X DAYLIN MOJICA [facility] ERT [id number] [facility] 2022-05-29 10:17:00 2022-05-29 14:59:00 Emergency Daylin Mojica G [facility] 1.2.840.114 350.1.13.10 4.2.7.2.686 [id number] 084 [id number] [facility] 2022-05-29 00:00:00 2022-05-29 00:00:00 Telephone Eduar [facility] 1.2.840.114 350.1.13.10 4.2.7.2.686 [id number] 044 [id number] [facility] 2022-05-29 00:00:00 2022-05-29 00:00:00 Viktoriya Witt [facility] 1.2.840.114 350.1.13.10 4.2.7.2.686 [id number] 044 [id number] [facility] 2022-05-27 00:00:00 2022-05-27 00:00:00 Telephone Eduar [facility] 1.2.840.114 350.1.13.10 4.2.7.2.686 [id number] 044 [id number] [facility] 2022-05-27 00:00:00 2022-05-27 00:00:00 Telephone Team, [facility] 1.2.840.114 350.1.13.10 4.2.7.2.686 [id number] 082 [id number] [facility] 2022-05-23 16:30:00 2022-05-23 17:15:04 Outpatient R GIOVANY ANTOINE [facility] [id number] [facility] 2022-05-23 16:30:00 2022-05-23 17:15:04 [facility] OFFICE BUILDING 1.2.840.114 350.1.13.10 4.2.7.2.686 [id number] 220 [id number] [facility] 2022-05-23 16:30:00 2022-05-23 16:30:00 Outpatient R GIOVANY ANTOINE [facility] [id number] [facility] 2022-05-23 00:00:00 2022-05-23 00:00:00 RefMarylou Lerma ON LICENSE OF [facility] 1.2.840.114 350.1.13.10 4.2.7.2.686 [id number] [facility] 2022-05-23 00:00:00 2022-05-23 00:00:00 Refprabhjot Witt Jefferson ON LICENSE OF [facility] 1.2.840.114 350.1.13.10 4.2.7.2.686 [id number] 044 [id number] [facility] 2022-05-20 00:00:00 2022-05-20 00:00:00 Refill Eduar Jefferson ON LICENSE OF [facility] 1.2.840.114 350.1.13.10 4.2.7.2.686 [id number] 044 [id number] [facility] 2022-05-08 12:00:00 2022-05-08 12:18:22 Outpatient R JEFFERSON WITT [facility] [id number] [facility] 2022-05-08 12:00:00 2022-05-08 12:18:22 Office Visit [facility] 1.284.114 350.1.13.10 4.2.7.2.686 [id number] 044 [id number] [facility] 2022-05-08 12:00:00 2022-05-08 12:00:00 Outpatient R JEFFERSON WITT [facility] [id number] [facility] 2022-05-08 00:00:00 2022-05-08 00:00:00 Telephone Jefferson Witt ON LICENSE OF [facility] 1.284114 350.1.13.10 4.2.7.2.686 [id number] 044 [id number] [facility] 2022-05-08 00:00:00 2022-05-08 00:00:00 Orders Only Doctor Unassigned, Tool [facility] 1..114 350.1.13.10 4.2.7.2.686 [id number] 009 [id number] [facility] 2022-05-07 00:00:00 2022-05-07 00:00:00 Refill Jefferson Witt [facility] MED[facility] OFF[facility] BUILD[facility] 1.84114 350.1.13.10 4.2.7.2.686 [id number] 044 [id number] [facility] 2022-05-06 00:00:00 2022-05-06 00:00:00 [facility] 1.284114 350.1.13.10 4.2.7.2.686 [id number] 044 [id number] [facility] 2022-04-29 00:00:00 2022-04-29 00:00:00 Refill Marylou Gamino [facility] MED[facility] OFF[facility] BUILD[facility] 1.2.840.114 350.1.13.10 4.2.7.2.686 [id number] [facility] 2022-04-24 00:00:00 2022-04-24 00:00:00 Outpatient R JEFFERSON WITT [facility] [id number] [facility] 2022-04-24 00:00:00 2022-04-24 00:00:00 Refill Eduar [facility] 1.2840.114 350.1.13.10 4.2.7.2.686 [id number] [facility] 2022-04-23 00:00:00 2022-04-23 00:00:00 [facility] 1.840.114 350.1.13.10 4.2.7.2.686 [id number] [facility] 2022-04-23 00:00:00 2022-04-23 00:00:00 [facility] 1.2840.114 350.1.13.10 4.2.7.2.686 [id number] [facility] 2022-04-09 00:00:00 2022-04-09 00:00:00 Refill Eduar [facility] 1.2840.114 350.1.13.10 4.2.7.2.686 [id number] [facility] 2022-04-08 00:00:00 2022-04-08 00:00:00 Telephone Eduar [facility] 1.2840.114 350.1.13.10 4.2.7.2.686 [id number] [facility] 2022-03-31 00:00:00 2022-03-31 00:00:00 [facility] 1.2.840.114 350.1.13.10 4.2.7.2.686 [id number] [facility] 2022-03-27 13:20:00 2022-03-27 13:20:00 Outpatient JEFFERSON PEREZ [facility] [id number] [facility] 2022-03-26 00:00:00 2022-03-26 00:00:00 Refill Jefferson Witt ON LICENSE OF [facility] MA[facility]ICIO?MARISELA [facility] 1.2.840.114 350.1.13.10 4.2.7.2.686 [id number] [facility] 2022-03-11 00:00:00 2022-03-11 00:00:00 Refill Eduar Jefferson ON LICENSE OF [facility]ICIO?MARISELA [facility] 1.2.840.114 350.1.13.10 4.2.7.2.686 [id number] [facility] 2022-03-06 00:00:00 2022-03-06 00:00:00 Telephone Eduar Jefferson ON LICENSE OF [facility] [place]IO?[facility] 1.2.840.114 350.1.13.10 4.2.7.2.686 [id number] [id number] [facility] 2022-03-01 00:00:00 2022-03-01 00:00:00 [facility] 1.2.840.114 350.1.13.10 4.2.7.2.686 [id number] [id number] [facility] 2022-02-27 00:00:00 2022-02-27 00:00:00 Marylou Ambrose ON LICENSE OF [facility]ICIO?[facility] 1.84114 350.1.13.10 4.2.7.2.686 [id number] [facility] [facility] 2022-02-26 00:00:00 2022-02-26 00:00:00 Telephone [facility]any [facility] 1..114 350.1.13.10 4.2.7.2.686 [id number] [facility] 2022-02-24 00:00:00 2022-02-24 00:00:00 Telephone Jefferson Witt ON LICENSE OF [facility] MAURICIO?MARISELA [facility] MED[facility] OFF[facility] BUILDING 1.114 350.1.13.10 4.2.7.2.686 [id number] 044 [id number] [facility] 2022-02-24 00:00:00 2022-02-24 00:00:00 Refill Eduar Jefferson ON LICENSE OF [facility] MAURICIO?MARISELA [facility] OFF[facility] BUILD[facility] 1.114 350.1.13.10 4.2.7.2.686 [id number] 044 [id number] [facility] 2022-02-21 10:45:00 2022-02-21 10:45:00 Outpatient ARMINDA COLALZO [facility] [id number] [facility] 2022-02-11 00:00:00 2022-02-11 00:00:00 Telephone Eduar Jefferson ON LICENSE OF [facility] MAURICIO?MARISELA [facility] MED[facility] OFFICE BUILDING 1.84114 350.1.13.10 4.2.7.2.686 [id number] [id number] [facility] 2022-02-10 00:00:00 2022-02-10 00:00:00 Telephone Jefferson Witt [facility] 1..114 350.1.13.10 4.2.7.2.686 [id number] 044 [id number] [facility] 2022-02-05 09:45:00 2022-02-05 10:02:08 Outpatient R JEFFERSON WITT [facility] [id number] [facility] 2022-02-05 09:45:00 2022-02-05 10:02:08 [facility] 1.84.114 350.1.13.10 4.2.7.2.686 [id number] 044 [id number] [facility] 2022-02-05 00:00:00 2022-02-05 00:00:00 Refill Eduar Jefferson ON LICENSE OF [facility] 1.84.114 350.1.13.10 4.2.7.2.686 [id number] 044 [id number] [facility] 2022-02-05 00:00:00 2022-02-05 00:00:00 Refill Eduar Jefferson ON LICENSE OF [facility] 1.84114 350.1.13.10 4.2.7.2.686 [id number] [id number] [facility] 2022-02-05 00:00:00 2022-02-05 00:00:00 Telephone [facility] 1.84114 350.1.13.10 4.2.7.2.686 [id number] [facility] 2022-02-05 00:00:00 2022-02-05 00:00:00 Orders Only Doctor Unassigned, Tool [facility] 1.284114 350.1.13.10 4.2.7.2.686 [id number] [facility] 2022-01-31 00:00:00 2022-01-31 00:00:00 Refill Giovany Antoine [facility] MA[facility]IC[facility]?MARISELA [facility] MED[facility] OFF[facility] BUILD[facility] 1..840.114 350.1.13.10 4.2.7.2.686 [id number] [facility] 2022-01-27 00:00:00 2022-01-27 00:00:00 Refill Cristhian Nora aGrvin [facility] 1..840.114 350.1.13.10 4.2.7.2.686 [id number] 044 [id number] [facility] 2022-01-26 00:00:00 2022-01-26 00:00:00 RefGiovany Waddell ON LICENSE OF [facility] MA[facility]ICIO?MARISELA [facility] MED[facility] OFFICE BUILDING 1..840.114 350.1.13.10 4.2.7.2.686 [id number] [facility] 2022-01-24 15:30:00 2022-01-24 15:30:00 Outpatient R GIOVANY NATOINE [facility] [id number] [facility] 2022-01-24 15:30:00 2022-01-24 15:30:00 Outpatient R GIOVANY ANTOINE [facility] [id number] [facility] 2022-01-13 00:00:00 2022-01-13 00:00:00 Telephone Jefferson Witt [facility] MED[facility] OFF[facility] BUILD[facility] 1..840.114 350.1.13.10 4.2.7.2.686 [id number] [facility] 2022-01-10 15:30:00 2022-01-10 15:30:00 Outpatient R GIOVANY ANTOINE [facility] [id number] [facility] 2022-01-09 10:30:00 2022-01-09 10:37:24 Outpatient NOEMI ZAIDI [facility] [id number] [facility] 2022-01-09 10:30:00 2022-01-09 10:37:24 Office Visit Noemi [facility] MED[facility] OFFICE BUILDING 1.2.840.114 350.1.13.10 4.2.7.2.686 [id number] [facility] 2022-01-09 10:30:00 2022-01-09 10:37:24 Outpatient Hany [facility] [id number] [facility] 2022-01-02 10:30:00 2022-01-02 10:45:00 [facility] 1..840.114 350.1.13.10 4.2.7.2.686 [id number] [facility] 2022-01-02 10:30:00 2022-01-02 10:30:00 Outpatient Hany [facility] [id number] [facility] 2022-01-02 10:30:00 2022-01-02 10:30:00 Outpatient Hany [facility] [id number] [facility] 2021-12-31 00:00:00 2021-12-31 00:00:00 [facility] 1..840.114 350.1.13.10 4.2.7.2.686 [id number] [facility] 2021-12-31 00:00:00 2021-12-31 00:00:00 Viktoriya [facility]ar [facility] 1.2.840.114 350.1.13.10 4.2.7.2.686 [id number] [facility] 2021-12-26 14:00:00 2021-12-26 14:37:45 Outpatient NOEMI ZAIDI [facility] [id number] [facility] 2021-12-26 14:00:00 2021-12-26 14:37:45 Office Visit Noemi Waite ON LICENSE OF [facility] MA[facility]IO?[facility] 1.2.840.114 350.1.13.10 4.2.7.2.686 [id number] [facility] 2021-12-26 00:00:00 2021-12-26 00:00:00 Telephone Giovany Antoine [facility] 1.2.840.114 350.1.13.10 4.2.7.2.686 [id number] [facility] 2021-12-26 00:00:00 2021-12-26 00:00:00 Telephone Giovany Antoine ON LICENSE OF [facility] 1..840.114 350.1.13.10 4.2.7.2.686 [id number] [facility] 2021-12-25 00:00:00 2021-12-25 00:00:00 Jefferson Katz ON LICENSE OF [facility]ICIO?[facility] 1.2.840.114 350.1.13.10 4.2.7.2.686 [id number] 044 [id number] [facility] 2021-12-19 10:15:00 2021-12-19 11:07:04 Outpatient R DILAN LOVE [facility] [id number] [facility] 2021-12-19 10:15:00 2021-12-19 11:07:04 Office Visit Dilan Love ON LICENSE OF [facility] BU[facility] 1.2.840.114 350.1.13.10 4.2.7.2.686 [id number] [facility] 2021-12-17 00:00:00 2021-12-17 00:00:00 Telephone Jefferson Witt ON LICENSE OF [facility] MA[facility]ICIO?MARISELA [facility] OFF[facility] BUILDING 1.840.114 350.1.13.10 4.2.7.2.686 [id number] [facility] 2021-12-12 10:15:00 2021-12-12 11:10:34 Outpatient Hany WAITE NOEMI [facility] [id number] [facility] 2021-12-12 10:15:00 2021-12-12 11:10:34 [facility] 1.840.114 350..13.10 4.2.7.2.686 [id number] [facility] 2021-12-12 10:15:00 2021-12-12 11:10:34 Outpatient Hany WAITE NOEMI [facility] [id number] [facility] 2021-12-12 10:15:00 2021-12-12 10:15:00 Outpatient Hany [facility] [id number] [facility] 2021-12-11 00:00:00 2021-12-11 00:00:00 [facility] 1.840.114 350.1.13.10 4.2.7.2.686 [id number] [facility] 2021-12-10 10:00:00 2021-12-10 10:15:00 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, Ang - Erik Eduar [facility]ILD[facility] 1.840.114 350.1.13.10 4.2.7.2.686 [id number] [facility] 2021-12-10 10:00:00 2021-12-10 10:00:00 Outpatient R WITT, [facility] [id number] [facility] 2021-12-10 09:45:00 2021-12-10 10:00:00 Office Visit Jefferson Witt [facility] OFFICE BUILDING 1.840.114 350.1.13.10 4.2.7.2.686 [id number] [facility] 2021-12-10 09:45:00 2021-12-10 09:45:00 Outpatient R JEFFERSON WITT [facility] [id number] [facility] 2021-12-05 14:15:00 2021-12-05 14:30:00 Office Visit Noemi Waite [facility] 1.840.114 350.1.13.10 4.2.7.2.686 [id number] [facility] 2021-12-05 14:15:00 2021-12-05 14:15:00 Outpatient R NOEMI WAITE [facility] [id number] [facility] 2021-12-05 14:15:00 2021-12-05 14:15:00 Outpatient R NOEMI WAITE [facility] [id number] [facility] 2021-12-05 00:00:00 2021-12-05 00:00:00 Orders Only Doctor Unassigned, Tool [facility] 1.840.114 350.1.13.10 4.2.7.2.686 [id number] [facility] 2021-12-02 00:00:00 2021-12-02 00:00:00 Refill WittJefferson [facility] 1.840.114 350.1.13.10 4.2.7.2.686 [id number] 044 [id number] [facility] 2021-12-01 00:00:00 2021-12-01 00:00:00 Refill Marylou Gamino ON LICENSE OF [facility] MA[facility]ICIO?[facility] 1.2840.114 350.1.13.10 4.2.7.2.686 [id number] [facility] 2021-12-01 00:00:00 2021-12-01 00:00:00 Refill Bassam [facility] 1.2840.114 350.1.13.10 4.2.7.2.686 [id number] [facility] 2021-11-27 00:00:00 2021-11-27 00:00:00 Orders Only Doctor Unassigned, Tool [facility] 1.2840.114 350.1.13.10 4.2.7.2.686 [id number] [facility] 2021-11-26 00:00:00 2021-11-26 00:00:00 Telephone Behzad [facility] MAURICIO?[facility] 1.2840.114 350.1.13.10 4.2.7.2.686 [id number] [facility] 2021-11-25 00:00:00 2021-11-25 00:00:00 Telephone Witt [facility] 1.2840.114 350.1.13.10 4.2.7.2.686 [id number] 044 [id number] [facility] 2021-11-25 00:00:00 2021-11-25 00:00:00 Telephone Jefferson Witt ON LICENSE OF [facility] MA[facility]ICIO?[facility] 1.2840.114 350.1.13.10 4.2.7.2.686 [id number] [id number] [facility] 2021-11-20 00:00:00 2021-11-20 00:00:00 Telephone Noemi Waite [facility] 1.840.114 350.1.13.10 4.2.7.2.686 [id number] [facility] 2021-11-19 13:30:00 2021-11-19 13:45:00 Office Visit Noemi Waite [facility] 1.840.114 350.1.13.10 4.2.7.2.686 [id number] [facility] 2021-11-19 13:30:00 2021-11-19 13:30:00 Outpatient R NOEMI WAITE [facility] [id number] [facility] 2021-11-13 09:45:00 2021-11-13 09:54:37 Office Visit Eduar [facility] MA[facility] 1.840.114 350.1.13.10 4.2.7.2.686 [id number] [facility] 2021-11-13 09:45:00 2021-11-13 09:54:37 Outpatient JEFFERSON PEREZ [facility] [id number] [facility] 2021-11-13 09:45:00 2021-11-13 09:45:00 Outpatient JEFFERSON PEREZ [facility] [id number] [facility] 2021-11-13 09:45:00 2021-11-13 09:45:00 Outpatient JEFFERSON PEREZ [facility] [id number] [facility] 2021-11-12 00:00:00 2021-11-12 00:00:00 Refill Jefferson Witt ON LICENSE OF [facility] INES [facility], [facility] OFFICE BUILDING ONE 1.840.114 350.1.13.10 4.2.7.2.686 [id number] [facility] 2021-11-11 00:00:00 2021-11-11 00:00:00 Refill [facility]ou G[facility] 1.2840.114 350.1.13.10 4.2.7.2.686 [id number] [facility] 2021-11-04 00:00:00 2021-11-04 00:00:00 Refill Jefferson Witt [facility] MED[facility] OFFICE BUILDING 1.2840.114 350.1.13.10 4.2.7.2.686 [id number] 044 [id number] [facility] 2021-11-01 00:00:00 2021-11-01 00:00:00 Refill Marylou Gamino [facility] MED[facility] OFFICE BUILDING 1.2840.114 350.1.13.10 4.2.7.2.686 [id number] [facility] 2021-10-31 00:00:00 2021-10-31 00:00:00 RefJefferson Moya ON LICENSE OF [facility] MA[facility]IC[facility] OFF[facility] BUILD[facility] 1.840.114 350.1.13.10 4.2.7.2.686 [id number] 044 [id number] [facility] 2021-10-21 00:00:00 2021-10-21 00:00:00 Telephone Jefferson Witt [facility] MED[facility] OFF[facility] BUILDING 1.2840.114 350.1.13.10 4.2.7.2.686 [id number] [facility] 2021-10-10 00:00:00 2021-10-10 00:00:00 Telephone Noemi Waite [facility] 1.2840.114 350.1.13.10 4.2.7.2.686 [id number] [facility] 2021-10-07 12:15:00 2021-10-07 12:15:00 Outpatient R JEFFERSON WITT [facility] [id number] [facility] 2021-10-02 14:45:00 2021-10-02 15:30:28 Outpatient R NOEMI WAITE [facility] [id number] [facility] 2021-10-02 14:45:00 2021-10-02 15:15:00 Office Visit [facility] 1..840.114 350.1.13.10 4.2.7.2.686 [id number] [facility] 2021-10-02 14:45:00 2021-10-02 14:45:00 Outpatient R WAITENOEMI [facility] [id number] [facility] 2021-10-02 00:00:00 2021-10-02 00:00:00 Refill Eduar [facility] INES [facility], [facility] OFFICE BUILDING ONE 1..840.114 350.1.13.10 4.2.7.2.686 [id number] [facility] 2021-09-20 10:30:00 2021-09-20 10:45:00 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, Fritz - Erik Witt [facility] MA[facility]IC[facility] 1..840.114 350.1.13.10 4.2.7.2.686 [id number] [facility] 2021-09-20 10:30:00 2021-09-20 10:30:00 Outpatient R JEFFERSON WITT [facility] [id number] [facility] 2021-09-19 10:30:00 2021-09-19 10:30:00 Outpatient R [facility] [id number] [facility] 2021-09-17 00:00:00 2021-09-17 00:00:00 [facility] 1..840.114 350.1.13.10 4.2.7.2.686 [id number] [facility] 2021-09-17 00:00:00 2021-09-17 00:00:00 Telephone Jefferson Witt ON LICENSE OF [facility] MA[facility] 1.840.114 350.1.13.10 4.2.7.2.686 [id number] [facility] 2021-09-13 10:30:00 2021-09-13 10:30:00 Outpatient R JEFFERSON WITT [facility] [id number] [facility] 2021-09-12 12:00:00 2021-09-12 12:00:00 Outpatient R JEFFERSON WITT [facility] [id number] [facility] 2021-09-12 10:15:00 2021-09-12 10:30:00 Office Visit Jefferson Witt ON LICENSE OF [facility] MA[facility] 1.840.114 350.1.13.10 4.2.7.2.686 [id number] [facility] 2021-09-12 10:15:00 2021-09-12 10:15:00 Outpatient R JEFFERSON WITT [facility] [id number] [facility] 2021-09-12 10:15:00 2021-09-12 10:15:00 Outpatient R JEFFERSON WITT [facility] [id number] [facility] 2021-09-12 00:00:00 2021-09-12 00:00:00 Telephone Elina Giovany Taylor [facility] 1..840.114 350.1.13.10 4.2.7.2.686 [id number] [facility] 2021-09-10 10:30:00 2021-09-10 11:01:21 Outpatient R MARYLOU GAMINO [facility] [id number] [facility] 2021-09-10 10:30:00 2021-09-10 11:01:21 [facility] 1.2.840.114 350.1.13.10 4.2.7.2.686 [id number] [facility] 2021-09-10 10:30:00 2021-09-10 11:01:21 Outpatient R MARYLOU GAMINO [facility] [id number] [facility] 2021-09-10 10:30:00 2021-09-10 10:30:00 Outpatient R MARYLOU GAMINO [facility] [id number] [facility] 2021-09-10 10:30:00 2021-09-10 10:30:00 Outpatient R MARYLOU GAMINO [facility] [id number] [facility] 2021-09-10 10:30:00 2021-09-10 10:30:00 [facility] [id number] 2021-09-10 10:30:00 2021-09-10 10:30:00 [facility] [id number] [facility] 2021-09-04 00:00:00 2021-09-04 00:00:00 Jefferson Katz [facility] 1.2.840.114 350.1.13.10 4.2.7.2.686 [id number] [facility] 2021-09-03 14:14:00 2021-09-03 16:13:00 Emergency X PRAVEEN [facility] E[facility] [id number] [facility] 2021-09-03 14:14:00 2021-09-03 16:13:00 Emergency Praveen S[facility] 1.2.840.114 350.1.13.10 4.2.7.2.686 [id number] [facility] 2021-09-03 00:00:00 2021-09-03 00:00:00 Telephone Bassam [facility]Former[facility] MA[facility]ICIO?[facility] 1.2.840.114 350.1.13.10 4.2.7.2.686 [id number] [id number] [facility] 2021-09-02 00:00:00 2021-09-02 00:00:00 Refill Eduar [facility] OFFICE BUILDING ONE 1.2840.114 350.1.13.10 4.2.7.2.686 [id number] [facility] 2021-09-02 00:00:00 2021-09-02 00:00:00 [facility] 1.2840.114 350.1.13.10 4.2.7.2.686 [id number] [facility] 2021-08-31 00:00:00 2021-08-31 00:00:00 Patient Secure Msg Doctor Unassigned, Tool [facility] 1.2840.114 350.1.13.10 4.2.7.2.686 [id number] [facility] 2021-08-29 11:45:00 2021-08-29 12:00:00 Office Visit [facility] 1.2840.114 350.1.13.10 4.2.7.2.686 [id number] [facility] 2021-08-29 11:45:00 2021-08-29 11:45:00 Outpatient R JEFFERSON WITT [facility] [id number] [facility] 2021-08-28 00:00:00 2021-08-28 00:00:00 Viktoriya Nora [place] Bharathi ON LICENSE OF [facility] INES [facility]LY [facility], [facility] OFFICE BUILDING ONE 1.114 350.1.13.10 4.2.7.2.686 [id number] [id number] [facility] 2021-08-15 10:45:00 2021-08-15 11:00:00 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, Fritz [facility] OFF[facility] BUILDING 1.114 350.1.13.10 4.2.7.2.686 [id number] [facility] 2021-08-15 10:45:00 2021-08-15 10:45:00 Outpatient JEFFERSON PEREZ [facility] [id number] [facility] 2021-08-15 10:00:00 2021-08-15 10:15:00 Office Visit Eduar [facility] OFF[facility] BUILD[facility] 1..114 350.1.13.10 4.2.7.2.686 [id number] [facility] 2021-08-15 10:00:00 2021-08-15 10:00:00 Outpatient JEFFERSON PEREZ [facility] [id number] [facility] 2021-08-15 10:00:00 2021-08-15 10:00:00 Outpatient JEFFERSON PEREZ [facility] [id number] [facility] 2021-08-15 10:00:00 2021-08-15 10:00:00 Outpatient Hany JEFFERSON WITT [facility] [id number] [facility] 2021-08-15 00:00:00 2021-08-15 00:00:00 Orders Only Doctor Unassigned, Tool [facility] 1.114 350.1.13.10 4.2.7.2.686 [id number] [facility] 2021-08-12 10:00:00 2021-08-12 10:00:00 Outpatient JEFFERSON PEREZ [facility] [id number] [facility] 2021-08-12 10:00:00 2021-08-12 10:00:00 Outpatient JEFFERSON PEREZ [facility] [id number] [facility] 2021-08-07 00:00:00 2021-08-07 00:00:00 Telephone Brian Ventura [facility] [id number] 350.1.13.10 4.2.7.2.686 [id number] [facility] 2021-08-06 00:00:00 2021-08-06 00:00:00 Refprabhjot WittJefferson [facility] OFFICE BUILD[facility] ONE [id number] 350.1.13.10 4.2.7.2.686 [id number] [facility] 2021-08-06 00:00:00 2021-08-06 00:00:00 Telephone Brian Ventura [facility] 1.2.840.114 350.1.13.10 4.2.7.2.686 [id number] [facility] 2021-08-05 09:54:13 2021-08-05 23:59:00 Outpatient R BRIAN VENTURA [facility] [id number] [facility] 2021-08-05 09:54:13 2021-08-05 23:59:00 Hospital Encounter Brian Ventura [facility] [id number] 350.1.13.10 4.2.7.2.686 [id number] [facility] 2021-08-02 15:30:00 2021-08-02 15:45:00 Laboratory Only Only, Adc Test Maryam Mckeon [facility] 1.2840.114 350.1.13.10 4.2.7.2.686 [id number] [facility] 2021-08-02 15:30:00 2021-08-02 15:30:00 Outpatient MARYAM HOWARD [facility] [id number] [facility] 2021-07-22 00:00:00 2021-07-22 00:00:00 Refill [facility]IC[facility] MEDICAL OFFICE BUILDING 1.84.114 350.1.13.10 4.2.7.2.686 [id number] 044 [id number] [facility] 2021-07-16 00:00:00 2021-07-16 00:00:00 Telephone [facility]ICIO[facility] MEDICAL OFFICE BUILDING 1.84.114 350.1.13.10 4.2.7.2.686 [id number] 044 [id number] [facility] 2021-07-10 09:30:00 2021-07-10 09:30:00 Outpatient JEFFERSON PEREZ [facility] [id number] [facility] 2021-07-09 00:00:00 2021-07-09 00:00:00 Telephone Eduar [facility] MAURICIO?MARISELA [facility] MEDICAL OFFICE BUILDING 1.84.114 350.1.13.10 4.2.7.2.686 [id number] 044 [id number] [facility] 2021-07-08 00:00:00 2021-07-08 00:00:00 Telephone [facility]ICIO[facility] MEDICAL OFFICE BUILDING 1.84.114 350.1.13.10 4.2.7.2.686 [id number] 044 [id number] [facility] 2021-07-03 15:09:59 2021-07-03 15:24:59 Office Visit [facility] MAURICIO?[facility] OFFICE BUILDING 1.2.840.114 350.1.13.10 4.2.7.2.686 [id number] 044 [id number] [facility] 2021-07-03 15:15:00 2021-07-03 15:15:00 Outpatient JEFFERSON PEREZ [facility] [id number] [facility] 2021-07-03 00:00:00 2021-07-03 00:00:00 Refill Eduar JeffersonFormerly [facility] ALEXA [facility] OFFICE BUILDING ONE 1.2.840.114 350.1.13.10 4.2.7.2.686 [id number] 044 [id number] [facility] 2021-07-01 00:00:00 2021-07-01 00:00:00 Telephone Bassam WittFormerly [facility] MAURICIO?[facility] OFFICE BUILDING 1.2.840.114 350.1.13.10 4.2.7.2.686 [id number] 044 [id number] [facility] 2021-06-26 00:00:00 2021-06-26 00:00:00 Refill [facility] MAURICIO?[facility] OFFICE BUILDING 1.2.840.114 350.1.13.10 4.2.7.2.686 [id number] 044 [id number] [facility] 2021-06-26 00:00:00 2021-06-26 00:00:00 Telephone [facility] MAURICIO?[facility] OFFICE BUILDING 1.2.840.114 350.1.13.10 4.2.7.2.686 [id number] 044 [id number] [facility] 2021-06-24 09:00:00 2021-06-24 09:00:00 Outpatient JEFFERSON PEREZ [facility] [id number] [facility] 2021-06-24 00:00:00 2021-06-24 00:00:00 Telephone Jefferson Witt [facility] MIRNA GLEASON?[facility] OFF[facility] BUILDING 1.2.840.114 350.1.13.10 4.2.7.2.686 [id number] 044 [id number] [facility] 2021-06-20 00:00:00 2021-06-20 00:00:00 Telephone Jefferson Witt [facility] MIRNA GLEASON?MARISELA [facility] MEDICAL OFFICE BUILDING 1..840.114 350.1.13.10 4.2.7.2.686 [id number] 044 [id number] [facility] 2021-06-19 12:00:00 2021-06-19 12:00:00 Outpatient JEFFERSON PEREZ [facility] [id number] [facility] 2021-06-19 10:09:29 2021-06-19 10:24:29 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, Fritz Valencia Eduar [facility] CAre[facility]AMELA GLEASON?MARISELA [facility] MEDICAL OFFICE BUILDING 1..840.114 350.1.13.10 4.2.7.2.686 [id number] [facility] 2021-06-19 09:41:59 2021-06-19 10:11:59 Office [facility] 1.2.840.114 350.1.13.10 4.2.7.2.686 [id number] 044 [id number] [facility] 2021-06-19 10:00:00 2021-06-19 10:00:00 Outpatient JEFFERSON PEREZ [facility] [id number] [facility] 2021-06-18 00:00:00 2021-06-18 00:00:00 Telephone [facility]MARISELA [facility] MEDICAL OFFICE BUILDING 1.2.840.114 350.1.13.10 4.2.7.2.686 [id number] 044 [id number] [facility] 2021-06-11 14:40:00 2021-06-11 14:40:00 Outpatient R CLIFFROBBIE [facility] [id number] [facility] 2021-06-10 00:00:00 2021-06-10 00:00:00 Refill Nora Ventura [facility] OFFICE BUILDING ONE 1..840.114 350.1.13.10 4.2.7.2.686 [id number] 044 [id number] [facility] 2021-06-10 00:00:00 2021-06-10 00:00:00 Telephone [facility] MAURICIOKARAN CORRINETORRES MEDICAL OFFICE BUILDING 1..840.114 350.1.13.10 4.2.7.2.686 [id number] 044 [id number] [facility] 2021-06-09 00:00:00 2021-06-09 00:00:00 Refill Eduar [facility] OFFICE BUILDING ONE 1..840.114 350.1.13.10 4.2.7.2.686 [id number] 044 [id number] [facility] 2021-06-04 14:44:49 2021-06-04 14:45:00 Imm/Inj Visit Nurse, Brenda Hernandez ImmunizSevero Rocha [facility] BUILDING 1..840.114 350.1.13.10 4.2.7.2.686 [id number] [facility] 2021-06-04 14:00:00 2021-06-04 14:35:39 Outpatient R BRIAN VENTURA [facility] [id number] [facility] 2021-06-04 13:38:39 2021-06-04 14:35:39 [facility] 1..840.114 350.1.13.10 4.2.7.2.686 [id number] [facility] 2021-06-04 14:30:00 2021-06-04 14:30:00 [facility] [id number] [facility] 2021-06-04 10:40:00 2021-06-04 10:40:00 Outpatient Hany LARA [facility] [id number] [facility] 2021-06-04 00:00:00 2021-06-04 00:00:00 Transition of Care Elizabeth Mckeon 1..840.114 350.1.13.10 4.2.7.2.686 [id number] [facility] 2021-05-31 13:04:00 2021-06-01 12:55:00 Outpatient X [facility] [id number] [facility] 2021-05-31 13:04:00 2021-06-01 12:55:00 Hospital Encounter Jesus Spain Gwynrichard [facility] 1..840.114 350.1.13.10 4.2.7.2.686 [id number] [facility] 2021-05-30 13:30:00 2021-05-30 13:30:00 Outpatient H[facility] [id number] [facility] 2021-05-30 00:00:00 2021-05-30 00:00:00 Refprabhjot Witt [facility] OFFICE BUILDING ONE 1..840.114 350.1.13.10 4.2.7.2.686 [id number] 044 [id number] [facility] 2021-05-29 00:00:00 2021-05-29 00:00:00 Juan Witt [facility] Mauricio?Marisela simpson Medical Office Building 1.2.840.114 350.1.13.10 4.2.7.2.686 [id number] 044 [id number] [facility] 2021-05-28 00:00:00 2021-05-28 00:00:00 Telephone [facility] MAURICIO?[facility] OFF[facility] BUILDING 1.2.840.114 350.1.13.10 4.2.7.2.686 [id number] 044 [id number] [facility] 2021-05-27 00:00:00 2021-05-27 00:00:00 Telephone Eduar [facility] Mauricio?Marisela simpson Medical Office Building 1.2.840.114 350.1.13.10 4.2.7.2.686 [id number] 044 [id number] [facility] 2021-05-27 00:00:00 2021-05-27 00:00:00 Telephone Delfino Marylou [facility] Mauricio?Marisela simpson Medical Office Building 1.2840.114 350.1.13.10 4.2.7.2.686 [id number] [facility] 2021-05-22 00:00:00 2021-05-22 00:00:00 Refprabhjot Eduar [facility] Office Building One 1.840.114 350.1.13.10 4.2.7.2.686 [id number] [id number] [facility] 2021-05-12 00:00:00 2021-05-12 00:00:00 Refprabhjot Witt [facility] Office Building One 1.2840.114 350.1.13.10 4.2.7.2.686 [id number] 044 [id number] [facility] 2021-05-10 13:30:00 2021-05-10 14:11:31 Outpatient R MARYLOU GAMINO [facility] [id number] [facility] 2021-05-10 13:28:18 2021-05-10 14:11:31 [facility] OFF[facility] BUILDING 1.2.840.114 350.1.13.10 4.2.7.2.686 [id number] [facility] 2021-05-09 00:00:00 2021-05-09 00:00:00 Telephone [facility] 1..840.114 350.1.13.10 4.2.7.2.686 [id number] [facility] 2021-05-06 00:00:00 2021-05-06 00:00:00 Orders Only Doctor Unassigned, Tool [facility] 1..840.114 350.1.13.10 4.2.7.2.686 [id number] [facility] 2021-05-01 00:00:00 2021-05-01 00:00:00 Telephone [facility]ela [facility] Medical Office Building 1.2.840.114 350.1.13.10 4.2.7.2.686 [id number] 044 [id number] [facility] 2021-04-25 08:59:52 2021-04-25 09:29:52 Office Visit Eduar Jefferson [facility] Mauricio?Marisela simpson Medical Office Building 1.2.840.114 350.1.13.10 4.2.7.2.686 [id number] 044 [id number] [facility] 2021-04-25 09:00:00 2021-04-25 09:00:00 Outpatient R JEFFERSON WITT [facility] [id number] [facility] 2021-04-24 09:29:51 2021-04-24 09:50:31 Urgent Care Ana Riddle [facility]?Marisela [facility] Medical Office Building 1.2.840.114 350.1.13.10 4.2.7.2.686 [id number] [facility] 2021-04-24 09:40:00 2021-04-24 09:40:00 Outpatient Hany WEINSTEIN DORON [facility] [id number] [facility] 2021-04-18 00:00:00 2021-04-18 00:00:00 Orders Only Doctor Unassigned, Tool [facility] 1.284.114 350.1.13.10 4.2.7.2.686 [id number] [id number] [facility] 2021-04-15 00:00:00 2021-04-15 00:00:00 Telephone Marylou Gamino [facility] Building 1.284.114 350.1.13.10 4.2.7.2.686 [id number] [facility] 2021-04-11 09:38:42 2021-04-11 09:57:48 Office Visit Jefferson Witt [facility]?Marisela simpson Medical Office Building 1.2.840.114 350.1.13.10 4.2.7.2.686 [id number] 044 [id number] [facility] 2021-04-11 09:45:00 2021-04-11 09:45:00 Outpatient R JEFFERSON WITT [facility] [id number] [facility] 2021-04-11 08:12:22 2021-04-11 08:27:22 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, 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 Jefferson Witt [facility] Building 1.2.840.114 350.1.13.10 4.2.7.2.686 [id number] [facility] 2021-04-11 08:12:22 2021-04-11 08:27:22 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, 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 Jefferson Witt [facility] nal Building 1.840.114 350.1.13.10 4.2.7.2.686 [id number] [facility] 2021-04-10 12:00:00 2021-04-10 12:00:00 Outpatient R EDUAR JEFFERSON [facility] [id number] [facility] 2021-03-31 00:00:00 2021-03-31 00:00:00 Refprabhjot Witt [facility] Office Building One 1..114 350.1.13.10 4.2.7.2.686 [id number] 044 [id number] [facility] 2021-03-31 00:00:00 2021-03-31 00:00:00 Refprabhjot Witt [facility] Office Building One 1..114 350.1.13.10 4.2.7.2.686 [id number] 044 [id number] [facility] 2021-03-12 00:00:00 2021-03-12 00:00:00 Refprabhjot Witt [facility] Office Building One 1..114 350.1.13.10 4.2.7.2.686 [id number] 044 [id number] [facility] 2021-03-04 00:00:00 2021-03-04 00:00:00 Refprabhjot Witt [facility] Office Building One 1..114 350.1.13.10 4.2.7.2.686 [id number] 044 [id number] [facility] 2021-03-01 00:00:00 2021-03-01 00:00:00 Refprabhjot Witt [facility] Office Building One 1.2.840.114 350.1.13.10 4.2.7.2.686 [id number] 044 [id number] [facility] 2021-02-26 00:00:00 2021-02-26 00:00:00 Telephone Eduar [facility] Office Building One 1.2840.114 350.1.13.10 4.2.7.2.686 [id number] 044 [id number] [facility] 2021-02-22 00:00:00 2021-02-22 00:00:00 Telephone Eduar [facility] Office Building One 1.840.114 350.1.13.10 4.2.7.2.686 [id number] 044 [id number] [facility] 2021-02-19 00:00:00 2021-02-19 00:00:00 Refill Eduar [facility] Office Building One 1.0.114 350.1.13.10 4.2.7.2.686 [id number] 044 [id number] [facility] 2021-02-18 11:40:45 2021-02-18 23:59:00 Hospital Encounter Josse Leyva [facility] 1.2840.114 350.1.13.10 4.2.7.2.686 [id number] [facility] 2021-02-18 00:00:00 2021-02-18 00:00:00 Outpatient R GORDON JOSSE [facility] [id number] [facility] 2021-02-18 00:00:00 2021-02-18 00:00:00 Orders Only Doctor Unassigned, Tool [facility] 1.2840.114 350.1.13.10 4.2.7.2.686 [id number] [facility] 2021-02-18 00:00:00 2021-02-18 00:00:00 [facility] 1..840.114 350.1.13.10 4.2.7.2.686 [id number] 044 [id number] [facility] 2021-02-08 08:30:00 2021-02-08 08:30:00 Outpatient GIOVANY GOTTI [facility] [id number] [facility] 2021-02-04 12:13:45 2021-02-04 12:31:27 Urgent Care Provider, [facility] Office [facility] One 1..840.114 350.1.13.10 4.2.7.2.686 [id number] [id number] [facility] 2021-02-04 12:20:00 2021-02-04 12:20:00 [id number] 2021-02-04 00:00:00 2021-02-04 00:00:00 Refill Eduar [facility] Office Building One 1..840.114 350.1.13.10 4.2.7.2.686 [id number] [id number] [facility] 2021-02-01 13:13:42 2021-02-01 15:01:09 Office Visit Marylou Gamino [facility] Building 1..840.114 350.1.13.10 4.2.7.2.686 [id number] [facility] 2021-02-01 13:30:00 2021-02-01 13:30:00 Outpatient GIOVANY GOTTI [facility] [id number] [facility] 2021-02-01 13:30:00 2021-02-01 13:30:00 Outpatient GIOVANY GOTTI [facility] [id number] [facility] 2021-01-24 00:00:00 2021-01-24 00:00:00 Refill Jefferson Witt [facility] Office Building One 1.840.114 350.1.13.10 4.2.7.2.686 [id number] 044 [id number] [facility] 2021-01-16 00:00:00 2021-01-16 00:00:00 Refill Jefferson Witt [facility] Office Building One 1.840.114 350.1.13.10 4.2.7.2.686 [id number] [id number] [facility] 2021-01-10 00:00:00 2021-01-10 00:00:00 Telephone Romi Dominguez [facility] Office Building One 1.840.114 350.1.13.10 4.2.7.2.686 [id number] [id number] [facility] 2021-01-09 15:52:45 2021-01-09 16:12:45 Urgent Care Romi Dominguez Cynthia [facility] Office Building One 1.840.114 350.1.13.10 4.2.7.2.686 [id number] 044 [id number] [facility] 2021-01-09 16:00:00 2021-01-09 16:00:00 Outpatient JOSSE RUIZ [facility] [id number] [facility] 2021-01-07 00:00:00 2021-01-07 00:00:00 Refprabhjot Eduar Jefferson [facility] Office Building One 1.840.114 350.1.13.10 4.2.7.2.686 [id number] 044 [id number] [facility] 2021-01-07 00:00:00 2021-01-07 00:00:00 Refill Jefferson Witt [facility] Office Building One 1.840.114 350.1.13.10 4.2.7.2.686 [id number] 044 [id number] [facility] 2021-01-07 00:00:00 2021-01-07 00:00:00 Telephone Jefferson Witt [facility] Office Building One 1.2840.114 350.1.13.10 4.2.7.2.686 [id number] 044 [id number] [facility] 2021-01-07 00:00:00 2021-01-07 00:00:00 Telephone Eduar [facility] Office Building One 1.840.114 350.1.13.10 4.2.7.2.686 [id number] 044 [id number] [facility] 2021-01-03 12:15:00 2021-01-03 12:15:00 Outpatient R JEFFERSON WITT [facility] [id number] [facility] 2021-01-03 11:45:12 2021-01-03 12:00:12 Office Visit Eduar [facility] Office Building One 1.840.114 350.1.13.10 4.2.7.2.686 [id number] 044 [id number] [facility] 2021-01-02 00:00:00 2021-01-02 00:00:00 [facility] One 1.840.114 350.1.13.10 4.2.7.2.686 [id number] 044 [id number] [facility] 2021-01-02 00:00:00 2021-01-02 00:00:00 Telephone Eduar Jefferson [facility] Office Building One 1.840.114 350.1.13.10 4.2.7.2.686 [id number] 044 [id number] [facility] 2021-01-01 00:00:00 2021-01-01 00:00:00 Refprabhjot Witt [facility] Office Building One 1.2840.114 350.1.13.10 4.2.7.2.686 [id number] 044 [id number] [facility] 2021-01-01 00:00:00 2021-01-01 00:00:00 Orders Only Doctor Unassigned, Tool [facility] 1.2840.114 350.1.13.10 4.2.7.2.686 [id number] [facility] 2020-12-24 00:00:00 2020-12-24 00:00:00 Nurse Triage Araceli Fitzgerald [facility] 1.840.114 350.1.13.10 4.2.7.2.686 [id number] [facility] 2020-12-07 00:00:00 2020-12-07 00:00:00 Refill Eduar [facility] Office Building One 1.0.114 350.1.13.10 4.2.7.2.686 [id number] 044 [id number] [facility] 2020-12-05 00:00:00 2020-12-05 00:00:00 Juan Eduar [facility] Office Building One 1.840.114 350.1.13.10 4.2.7.2.686 [id number] 044 [id number] [facility] 2020-12-03 00:00:00 2020-12-03 00:00:00 Refill Eduar [facility] Office Building One 1.840.114 350.1.13.10 4.2.7.2.686 [id number] 044 [id number] [facility] 2020-12-03 00:00:00 2020-12-03 00:00:00 Refprabhjot Witt [facility] Office Building One 1..114 350.1.13.10 4.2.7.2.686 [id number] 044 [id number] [facility] 2020-11-27 09:21:28 2020-11-27 23:59:00 Outpatient R JEFFERSON WITT [facility] [id number] [facility] 2020-11-27 09:21:28 2020-11-27 23:59:00 Hospital Encounter Jefferson Witt [facility] 1..114 350.1.13.10 4.2.7.2.686 [id number] [facility] 2020-11-27 00:00:00 2020-11-27 00:00:00 Outpatient R JEFFERSON WITT [facility] [id number] [facility] 2020-11-27 00:00:00 2020-11-27 00:00:00 Orders Only Doctor Unassigned, Tool [facility] 1..114 350.1.13.10 4.2.7.2.686 [id number] [id number] [facility] 2020-11-21 00:00:00 2020-11-21 00:00:00 Refprabhjot Witt [facility] Office Building One 1..114 350.1.13.10 4.2.7.2.686 [id number] 044 [id number] [facility] 2020-11-14 00:00:00 2020-11-14 00:00:00 Juan Eduar Jefferson [facility] Office Building One 1..114 350.1.13.10 4.2.7.2.686 [id number] 044 [id number] [facility] 2020-11-13 13:17:58 2020-11-13 23:59:00 Outpatient R JEFFERSON WITT [facility] [id number] [facility] 2020-11-13 13:17:58 2020-11-13 23:59:00 Hospital Encounter Jefferson Witt [facility] 1.2.840.114 350.1.13.10 4.2.7.2.686 [id number] [facility] 2020-11-13 13:17:10 2020-11-13 23:59:00 Hospital Encounter Jefferson Witt [facility] 1.2.840.114 350.1.13.10 4.2.7.2.686 [id number] [facility] 2020-11-13 00:00:00 2020-11-13 00:00:00 Outpatient R JEFFERSON WITT [facility] [id number] [facility] 2020-11-13 00:00:00 2020-11-13 00:00:00 Orders Only Doctor Unassigned, Tool [facility] 1.2.840.114 350.1.13.10 4.2.7.2.686 [id number] [id number] [facility] 2020-11-06 00:00:00 2020-11-06 00:00:00 Refill Jefferson Witt [facility] Office Building One 1.2840.114 350.1.13.10 4.2.7.2.686 [id number] 044 [id number] [facility] 2020-10-24 13:10:01 2020-10-24 13:25:01 Office Visit Jefferson Witt [facility] Office Building One 1.2840.114 350.1.13.10 4.2.7.2.686 [id number] 044 [id number] [facility] 2020-10-24 13:15:00 2020-10-24 13:15:00 Outpatient R JEFFERSON WITT [facility] [id number] [facility] 2020-10-24 00:00:00 2020-10-24 00:00:00 Orders Only Doctor Unassigned, Tool [facility] 1..114 350.1.13.10 4.2.7.2.686 [id number] [id number] [facility] 2020-10-09 00:00:00 2020-10-09 00:00:00 Refill Witt [facility] Office Building One 1..114 350.1.13.10 4.2.7.2.686 [id number] 044 [id number] [facility] 2020-10-09 00:00:00 2020-10-09 00:00:00 Refill Eduar [facility] Office Building One 1..114 350.1.13.10 4.2.7.2.686 [id number] 044 [id number] [facility] 2020-10-03 12:26:09 2020-10-03 12:41:09 Office Visit Witt Jefferson [facility] Office Building One 1..114 350.1.13.10 4.2.7.2.686 [id number] [id number] [facility] 2020-10-03 12:15:00 2020-10-03 12:15:00 Outpatient R JEFFERSON WITT [facility] [id number] [facility] 2020-09-28 13:21:27 2020-09-28 14:42:31 [facility] 1..114 350.1.13.10 4.2.7.2.686 [id number] [facility] 2020-09-28 13:30:00 2020-09-28 13:30:00 Outpatient R ANTOINE, GIOVANY [facility] [id number] [facility] 2020-09-24 00:00:00 2020-09-24 00:00:00 [facility] .114 [id number] [id number] [id number] [facility] 2020-09-20 11:53:00 2020-09-20 12:28:00 Emergency X JAYASHREE MULLINS [facility] ERT [id number] [facility] 2020-09-20 11:53:00 2020-09-20 12:28:00 Emergency Jayashree Mullins [facility] ..114 350.1.13.10 [id number] [id number] [facility] 2020-09-19 00:00:00 2020-09-19 00:00:00 Viktoriya Witt [facility] Office Building One .114 [id number] 4.2.7.2.686 [id number] [facility] 2020-09-14 00:00:00 2020-09-14 00:00:00 Viktoriya Witt [facility] Office Building One .114 350.1.13.10 [id number] [id number] [facility] 2020-09-13 00:00:00 2020-09-13 00:00:00 Viktoriya Witt [facility] Office Building One .114 350.1.13.10 4.2.7.2.686 [id number] [id number] [facility] 2020-09-06 13:30:00 2020-09-06 13:40:37 Outpatient R DOMINGO JORGE LUIS [facility] [id number] [facility] 2020-09-06 13:30:00 2020-09-06 13:30:00 Outpatient R DOMINGO JORGE LUIS [facility] [id number] [facility] 2020-08-31 10:35:13 2020-08-31 11:37:50 Office Visit Bisi Cardoso [facility] Building 1.2840.114 350.1.13.10 4.2.7.2.686 [id number] [facility] 2020-08-31 11:00:00 2020-08-31 11:00:00 Outpatient R BISI CARDOSO [facility] [id number] [facility] 2020-08-29 00:00:00 2020-08-29 00:00:00 Telephone Giovany Antoine [facility] Building 1.2840.114 350.1.13.10 4.2.7.2.686 [id number] [facility] 2020-08-27 00:00:00 2020-08-27 00:00:00 Jefferson Katz [facility] Office Building One 1.2840.114 350.1.13.10 4.2.7.2.686 [id number] 044 [id number] [facility] 2020-08-21 00:00:00 2020-08-21 00:00:00 Nurse Triage Yaneli Rocha [facility] 1.2840.114 350.1.13.10 4.2.7.2.686 [id number] [facility] 2020-08-17 07:37:00 2020-08-17 11:47:00 Hospital Encounter Bisi Cardoso [facility] 1.2840.114 350.1.13.10 4.2.7.2.686 [id number] [facility] 2020-08-16 14:00:33 2020-08-16 14:15:33 Laboratory Only Only, Adc Test Bisi Cardoso [facility] 1.840.114 350.1.13.10 4.2.7.2.686 [id number] [facility] 2020-08-16 14:00:00 2020-08-16 14:00:00 Outpatient Hany CARDOSO BISI [facility] [id number] [facility] 2020-08-16 00:00:00 2020-08-16 00:00:00 Orders Only Doctor Unassigned, Tool [facility] 1.840.114 350.1.13.10 4.2.7.2.686 [id number] [facility] 2020-08-14 00:00:00 2020-08-14 00:00:00 Telephone [facility] 1..114 350.1.13.10 4.2.7.2.686 [id number] [facility] 2020-08-09 15:20:00 2020-08-09 15:20:00 Outpatient JORGE LUIS ROBERTS [facility] [id number] [facility] 2020-08-09 15:20:00 2020-08-09 15:09:53 Outpatient JORGE LUIS ROBERTS [facility] [id number] [facility] 2020-08-08 00:00:00 2020-08-08 00:00:00 Telephone [facility] One 1.840.114 350.1.13.10 4.2.7.2.686 [id number] 044 [id number] [facility] 2020-08-06 00:00:00 2020-08-06 00:00:00 RefJefferson Moya [facility] Office Building One 1.2.840.114 350.1.13.10 4.2.7.2.686 [id number] 044 [id number] [facility] 2020-08-06 00:00:00 2020-08-06 00:00:00 Telephone Jefferson Witt [facility] Building 1.2.840.114 350.1.13.10 4.2.7.2.686 [id number] 044 [id number] [facility] 2020-07-30 10:00:24 2020-07-30 10:15:24 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, [facility] Lab Jefferson Witt [facility] Building 1.2.840.114 350.1.13.10 4.2.7.2.686 [id number] [facility] 2020-07-30 10:15:00 2020-07-30 10:15:00 Outpatient R JEFFERSON WITT [facility] [id number] [facility] 2020-07-30 08:18:05 2020-07-30 09:18:05 Laboratory Only Pc, [facility] 1.2.840.114 350.1.13.10 4.2.7.2.686 [id number] [id number] [facility] 2020-07-30 08:17:07 2020-07-30 08:47:07 Nurse Visit Visit, [facility] Nurse Cliff [facility] Building 1.2.840.114 350.1.13.10 4.2.7.2.686 [id number] [facility] 2020-07-30 08:30:00 2020-07-30 08:30:00 Outpatient R [facility] [id number] [facility] 2020-07-30 00:00:00 2020-07-30 00:00:00 Refprabhjot Jefefrson Witt [facility] Office Building One 1.84114 350.1.13.10 4.2.7.2.686 [id number] 044 [id number] [facility] 2020-07-24 00:00:00 2020-07-24 00:00:00 Telephone Jefferson Witt [facility] Office Building One 1.114 350.1.13.10 4.2.7.2.686 [id number] 044 [id number] [facility] 2020-07-23 00:00:00 2020-07-23 00:00:00 Jefferson Katz [facility] Office Building One 1.114 350.1.13.10 4.2.7.2.686 [id number] 044 [id number] [facility] 2020-07-20 09:45:00 2020-07-20 10:34:29 Outpatient R BISI CARDOSO [facility] [id number] [facility] 2020-07-20 09:34:36 2020-07-20 10:34:29 Office Visit Bisi Cardoso [facility] Building 1.84.114 350.1.13.10 4.2.7.2.686 [id number] [facility] 2020-07-20 09:45:00 2020-07-20 09:45:00 Outpatient BISI SHIRLEY [facility] [id number] [facility] 2020-07-20 00:00:00 2020-07-20 00:00:00 Prep For Surgery Sandy Grissom [facility] Building 1.84.114 350.1.13.10 4.2.7.2.686 [id number] [facility] 2020-07-19 00:00:00 2020-07-19 00:00:00 Telephone Sandy Grissom [facility] Building 1.0.114 350.1.13.10 4.2.7.2.686 [id number] [facility] 2020-07-11 14:15:00 2020-07-11 15:24:26 Outpatient R SANDY RGISSOM [facility] [id number] [facility] 2020-07-11 14:07:33 2020-07-11 15:24:26 Office Visit Sandy Grissom [facility] nal Building 1.0.114 350.1.13.10 4.2.7.2.686 [id number] [facility] 2020-07-11 12:22:19 2020-07-11 12:42:19 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, [facility] Pob I Eduar [facility] Office Building One 1.114 350.1.13.10 4.2.7.2.686 [id number] 044 [id number] [facility] 2020-07-11 11:51:24 2020-07-11 12:15:39 Office Visit Eduar Jefferson [facility] Office Building One 1.114 350.1.13.10 4.2.7.2.686 [id number] [id number] [facility] 2020-07-11 12:00:00 2020-07-11 12:00:00 Outpatient R JEFFERSON WITT [facility] [id number] [facility] 2020-07-04 00:00:00 2020-07-04 00:00:00 Telephone Eduar Jefferson [facility] Office Building One 1.114 350.1.13.10 4.2.7.2.686 [id number] 044 [id number] [facility] 2020-06-27 13:09:36 2020-06-27 23:59:00 Hospital Encounter Rosette Contreras [facility] 1..114 350.1.13.10 4.2.7.2.686 [id number] [facility] 2020-06-27 11:31:39 2020-06-27 11:51:39 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, [facility] Pob Rosette Schmid [facility] Office Building One 1.114 350.1.13.10 4.2.7.2.686 [id number] 044 [id number] [facility] 2020-06-27 11:40:00 2020-06-27 11:43:32 Outpatient ROSETTE ROME [facility] [id number] [facility] 2020-06-27 10:46:55 2020-06-27 11:43:03 Urgent Care Provider, [facility] Urgent Care Mehreen Leyvathia [facility] Office Building One . 350.1.13.10 4.2.7.2.686 [id number] 044 [id number] [facility] 2020-06-27 11:00:00 2020-06-27 11:00:00 Outpatient JOSSE RUIZ [facility] [id number] [facility] 2020-06-26 00:00:00 2020-06-26 00:00:00 Telephone Eduar Jefferson [facility] Office Building One .114 350.1.13.10 4.2.7.2.686 [id number] 044 [id number] [facility] 2020-06-22 00:00:00 2020-06-22 00:00:00 Refill Witt [facility] Office Building One .114 350.1.13.10 4.2.7.2.686 [id number] 044 [id number] [facility] 2020-06-21 00:00:00 2020-06-21 00:00:00 Telephone Eduar Jefferson [facility] Office Building One 1.2.840.114 350.1.13.10 4.2.7.2.686 [id number] 044 [id number] [facility] ity [facility] 2020-06-19 00:00:00 2020-06-19 00:00:00 Refill Eduar [facility] Office Building One 1.2.840.114 350.1.13.10 4.2.7.2.686 [id number] 044 [id number] [facility] ity [facility] 2020-06-19 00:00:00 2020-06-19 00:00:00 Refill Eduar [facility] Office Building One 1.2.840.114 350.1.13.10 4.2.7.2.686 [id number] 044 [id number] [facility] 2020-06-13 00:00:00 2020-06-13 00:00:00 Refill Eduar [facility] Office Building One 1.2.840.114 350.1.13.10 4.2.7.2.686 [id number] 044 [id number] [facility] ity [facility] 2020-06-04 00:00:00 2020-06-04 00:00:00 Telephone [facility] 1.2.840.114 350.1.13.10 4.2.7.2.686 [id number] [facility] 2020-06-01 00:00:00 2020-06-01 00:00:00 Telephone Jefferson Witt [facility] Office Building One 1.2840.114 350.1.13.10 4.2.7.2.686 [id number] 044 [id number] [facility] 2020-05-29 09:00:00 2020-05-29 09:00:00 Outpatient R JEFFERSON WITT [facility] [id number] [facility] 2020-05-29 06:53:27 2020-05-29 07:08:27 Telemedici ne Visit Jefferson Witt [facility] Office Building One 1.2.840.114 350.1.13.10 4.2.7.2.686 [id number] 044 [id number] [facility] 2020-05-29 00:00:00 2020-05-29 00:00:00 Refill Giovany Antoine [facility] Building 1.2.840.114 350.1.13.10 4.2.7.2.686 [id number] [facility] 2020-05-21 00:00:00 2020-05-21 00:00:00 Telephone Jefferson Witt [facility] Office Building One 1.2.840.114 350.1.13.10 4.2.7.2.686 [id number] 044 [id number] [facility] 2020-05-16 00:00:00 2020-05-16 00:00:00 Refill Jefferson Witt [facility] Office Building One 1.2.840.114 350.1.13.10 4.2.7.2.686 [id number] 044 [id number] [facility] 2020-05-14 00:00:00 2020-05-14 00:00:00 Refill Eduar Jefferson [facility] Office Building One 1.2.840.114 350.1.13.10 4.2.7.2.686 [id number] 044 [id number] [facility] 2020-05-11 00:00:00 2020-05-11 00:00:00 Telephone Jefferson Witt [facility] Office Building One 1.2.840.114 350.1.13.10 4.2.7.2.686 [id number] 044 [id number] [facility] 2020-05-11 00:00:00 2020-05-11 00:00:00 Telephone Antoine, Giovany [facility] Building 1.840.114 350.1.13.10 4.2.7.2.686 [id number] [facility] 2020-05-08 08:45:00 2020-05-08 08:45:00 Outpatient JEFFERSON PEREZ [facility] [id number] [facility] 2020-05-08 07:57:55 2020-05-08 08:12:55 Telemedici ne Visit Jefferson Witt [facility] Office Building One 1.0.114 350.1.13.10 4.2.7.2.686 [id number] 044 [id number] [facility] 2020-05-08 00:00:00 2020-05-08 00:00:00 Telephone Jefferson Witt [facility] Office Building One 1..114 350.1.13.10 4.2.7.2.686 [id number] 044 [id number] [facility] 2020-05-08 00:00:00 2020-05-08 00:00:00 Telephone Jefferson Witt [facility] Building 1.840.114 350.1.13.10 4.2.7.2.686 [id number] 044 [id number] [facility] 2020-05-02 00:00:00 2020-05-02 00:00:00 Telephone Jefferson Witt [facility] Office Building One 1..114 350.1.13.10 4.2.7.2.686 [id number] 044 [id number] [facility] 2020-04-24 09:15:00 2020-04-24 09:15:00 Outpatient JEFFERSON PEREZ [facility] [id number] [facility] 2020-04-24 06:51:14 2020-04-24 07:06:14 Telemedici ne Visit Eduar [facility] Office Building One 1.2840.114 350.1.13.10 4.2.7.2.686 [id number] 044 [id number] [facility] 2020-04-18 00:00:00 2020-04-18 00:00:00 Refill Jefferson Witt [facility] Office Building One 1.2840.114 350.1.13.10 4.2.7.2.686 [id number] 044 [id number] [facility] 2020-04-13 00:00:00 2020-04-13 00:00:00 Refill Giovany Antoine [facility] Building 1.284.114 350.1.13.10 4.2.7.2.686 [id number] [facility] 2020-04-11 13:00:00 2020-04-11 13:00:00 Outpatient R JEFFERSON WITT [facility] [id number] [facility] 2020-04-11 12:43:12 2020-04-11 12:58:12 Office Visit Eduar [facility] Office Building One 1.2.114 350.1.13.10 4.2.7.2.686 [id number] 044 [id number] [facility] 2020-04-08 00:00:00 2020-04-08 00:00:00 Refill Eduar [facility] Office Building One 1.2840.114 350.1.13.10 4.2.7.2.686 [id number] 044 [id number] [facility] 2020-04-04 13:45:29 2020-04-04 14:43:26 Office Visit [facility] 1.2840.114 350.1.13.10 4.2.7.2.686 [id number] [facility] 2020-04-04 14:00:00 2020-04-04 14:00:00 Outpatient DILAN PILLAI [facility] [id number] [facility] 2020-04-02 00:00:00 2020-04-02 00:00:00 Viktoriya Witt [facility] Office Building One 1.114 350.1.13.10 4.2.7.2.686 [id number] 044 [id number] [facility] 2020-04-01 00:00:00 2020-04-01 00:00:00 Nurse Triage Alana Baptiste [facility] 1.114 350.1.13.10 4.2.7.2.686 [id number] [id number] [facility] 2020-04-01 00:00:00 2020-04-01 00:00:00 Telephone Aleks Sanders [facility] 1.114 350.1.13.10 4.2.7.2.686 [id number] [id number] [facility] 2020-03-28 14:15:00 2020-03-28 14:15:00 Outpatient R DILAN LOVE [facility] [id number] [facility] 2020-03-24 00:00:00 2020-03-24 00:00:00 Viktoriya Eduar [facility] Office Building One 1.114 350.1.13.10 4.2.7.2.686 [id number] [id number] [facility] 2020-03-23 13:17:14 2020-03-23 14:30:58 Office Visit Giovany Antoine [facility] Building 1.114 350.1.13.10 4.2.7.2.686 [id number] [facility] 2020-03-23 13:30:00 2020-03-23 13:30:00 Outpatient GIOVANY GOTTI [facility] [id number] [facility] 2020-03-23 00:00:00 2020-03-23 00:00:00 Orders Only Doctor Unassigned, Tool [facility] 1.2840.114 350.1.13.10 4.2.7.2.686 [id number] [facility] 2020-03-20 14:45:00 2020-03-20 14:45:00 Outpatient NOEMI ZAIDI [facility] [id number] [facility] 2020-03-19 00:00:00 2020-03-19 00:00:00 Telephone AntoineGiovany [facility] Building 1.284.114 350.1.13.10 4.2.7.2.686 [id number] [facility] 2020-03-19 00:00:00 2020-03-19 00:00:00 [facility] One 1.84.114 350.1.13.10 4.2.7.2.686 [id number] 044 [id number] [facility] 2020-03-16 00:00:00 2020-03-16 00:00:00 Refill Giovany Antoine [facility] Building 1.84.114 350.1.13.10 4.2.7.2.686 [id number] 220 [id number] [facility] 2020-03-15 00:00:00 2020-03-15 00:00:00 Telephone Eduar [facility] Office Building One 1.84.114 350.1.13.10 4.2.7.2.686 [id number] 044 [id number] [facility] 2020-03-13 10:25:12 2020-03-13 23:59:00 Outpatient JOSSE RUIZ [facility] [id number] [facility] 2020-03-13 10:25:12 2020-03-13 23:59:00 Hospital Encounter Josse Leyva [facility] 1.2840.114 350.1.13.10 4.2.7.2.686 [id number] [facility] 2020-03-13 09:37:13 2020-03-13 09:57:13 Urgent Care Provider, [facility] Office Building One 1..114 350.1.13.10 4.2.7.2.686 [id number] 044 [id number] [facility] 2020-03-13 09:40:00 2020-03-13 09:40:00 Outpatient R [facility] [id number] [facility] 2020-03-09 00:00:00 2020-03-09 00:00:00 Telephone Eduar Jefferson [facility] Building 1.2840.114 350.1.13.10 4.2.7.2.686 [id number] 044 [id number] [facility] 2020-03-07 00:00:00 2020-03-07 00:00:00 Telephone AntoineGiovany Galdamez [facility] Building 1.2840.114 350.1.13.10 4.2.7.2.686 [id number] 220 [id number] [facility] 2020-03-03 00:00:00 2020-03-03 00:00:00 [facility]ill [facility] One 1.2.114 350.1.13.10 4.2.7.2.686 [id number] 044 [id number] [facility] 2020-03-02 00:00:00 2020-03-02 00:00:00 Telephone AntoineGiovany Galdamez Claudia [facility] Building 1.20.114 350.1.13.10 4.2.7.2.686 [id number] 220 [id number] [facility] ity [facility] 2020-02-29 00:00:00 2020-02-29 00:00:00 Viktoriya Witt [facility] Office Building One 1.2.840.114 350.1.13.10 4.2.7.2.686 [id number] 044 [id number] [facility] 2020-02-28 00:00:00 2020-02-28 00:00:00 Viktoriya Witt [facility] Office Building One 1.2840.114 350.1.13.10 4.2.7.2.686 [id number] 044 [id number] [facility] 2020-02-28 00:00:00 2020-02-28 00:00:00 Telephone Giovany Antoine [facility] Building 1.2.840.114 350.1.13.10 4.2.7.2.686 [id number] 220 [id number] [facility] ity [facility] 2020-02-27 00:00:00 2020-02-27 00:00:00 Viktoriya Witt [facility] Office Building One 1.2.840.114 350.1.13.10 4.2.7.2.686 [id number] 044 [id number] [facility] 2020-02-23 00:00:00 2020-02-23 00:00:00 Telephone Elina Giovany [facility] Building 1.2.840.114 350.1.13.10 4.2.7.2.686 [id number] 220 [id number] [facility] ity [facility] 2020-02-21 00:00:00 2020-02-21 00:00:00 Telephone Giovany Antoine [facility] nal Building 1.2.840.114 350.1.13.10 4.2.7.2.686 [id number] [facility] 2020-02-20 00:00:00 2020-02-20 00:00:00 Jefferson Katz [facility] Office Building One 1.2.840.114 350.1.13.10 4.2.7.2.686 [id number] 044 [id number] [facility] 2020-02-14 00:00:00 2020-02-14 00:00:00 Telephone Jefferson Witt [facility] Building 1.2.840.114 350.1.13.10 4.2.7.2.686 [id number] 044 [id number] [facility] 2020-02-10 00:00:00 2020-02-10 00:00:00 Viktoriya Witt [facility] Office Building One 1.2.840.114 350.1.13.10 4.2.7.2.686 [id number] 044 [id number] [facility] 2020-02-08 00:00:00 2020-02-08 00:00:00 RefJefferson Moya [facility] Building 1.2.840.114 350.1.13.10 4.2.7.2.686 [id number] 044 [id number] [facility] 2020-02-02 00:00:00 2020-02-02 00:00:00 Viktoriya Witt [facility] Office Building One 1.2.840.114 350.1.13.10 4.2.7.2.686 [id number] 044 [id number] [facility] 2020-02-02 00:00:00 2020-02-02 00:00:00 Telephone Giovany Antoine [facility] Building 1.2.840.114 350.1.13.10 4.2.7.2.686 [id number] 220 [id number] [facility] 2020-01-31 00:00:00 2020-01-31 00:00:00 Refill EduarJefferson [facility] Office Building One 1.2.840.114 350.1.13.10 4.2.7.2.686 [id number] 044 [id number] [facility] 2020-01-26 00:00:00 2020-01-26 00:00:00 Refill Giovany Antoine [facility] Building 1.2.840.114 350.1.13.10 4.2.7.2.686 [id number] 220 [id number] [facility] 2020-01-24 00:00:00 2020-01-24 00:00:00 Refill Jefferson Witt [facility] Office Building One 1.2840.114 350.1.13.10 4.2.7.2.686 [id number] 044 [id number] [facility] 2020-01-23 00:00:00 2020-01-23 00:00:00 Telephone Giovany Antoine [facility] Building 1.2.840.114 350.1.13.10 4.2.7.2.686 [id number] 220 [id number] [facility] 2020-01-18 00:00:00 2020-01-18 00:00:00 Refill Eduar Jefferson [facility] Office Building One 1.2.840.114 350.1.13.10 4.2.7.2.686 [id number] 044 [id number] [facility] 2020-01-09 11:54:37 2020-01-09 12:09:37 Office Visit Jefferson Witt [facility] Building 1.2.840.114 350.1.13.10 4.2.7.2.686 [id number] 044 [id number] [facility] 2020-01-09 12:00:00 2020-01-09 12:00:00 Outpatient R JEFFERSON WITT [facility] [id number] [facility] ity [facility] 2019-12-30 00:00:00 2019-12-30 00:00:00 Telephone Jefferson Witt [facility] Office Building One 1.2840.114 350.1.13.10 4.2.7.2.686 [id number] 044 [id number] [facility] ity [facility] 2019-12-29 00:00:00 2019-12-29 00:00:00 Telephone Jefferson Witt [facility] Office Building One 1.2840.114 350.1.13.10 4.2.7.2.686 [id number] 044 [id number] [facility] 2019-12-27 00:00:00 2019-12-27 00:00:00 Telephone Giovany Antoine [facility] Jazzy [facility] nal Building 1.2840.114 350.1.13.10 4.2.7.2.686 [id number] 220 [id number] [facility] 2019-12-27 00:00:00 2019-12-27 00:00:00 Refill Eduar [facility] Office Building One 1.2840.114 350.1.13.10 4.2.7.2.686 [id number] 044 [id number] [facility] 2019-12-20 00:00:00 2019-12-20 00:00:00 Refill Jefferson Witt [facility] Office Building One 1.2840.114 350.1.13.10 4.2.7.2.686 [id number] 044 [id number] [facility] 2019-12-15 10:46:49 2019-12-19 09:53:57 Urgent Care Provider, [facility] Urgent Care Josse Leyva [facility] Office Building One 1.2840.114 350.1.13.10 4.2.7.2.686 [id number] 044 [id number] [facility] 2019-12-19 00:00:00 2019-12-19 00:00:00 Telephone Josse Leyva [facility] Office Building One 1..114 350.1.13.10 4.2.7.2.686 [id number] 044 [id number] [facility] 2019-12-16 00:00:00 2019-12-16 00:00:00 [facility] One 1..114 350.1.13.10 4.2.7.2.686 [id number] 044 [id number] [facility] 2019-12-16 00:00:00 2019-12-16 00:00:00 Refprabhjot Witt [facility] Office Building One 1..114 350.1.13.10 4.2.7.2.686 [id number] 044 [id number] [facility] 2019-12-15 11:00:00 2019-12-15 11:00:00 Outpatient R [facility] [id number] [facility] 2019-12-13 09:40:00 2019-12-13 09:40:00 Outpatient R [facility] [id number] [facility] 2019-12-08 00:00:00 2019-12-08 00:00:00 Viktoriya Witt [facility] Office Building One 1..114 350.1.13.10 4.2.7.2.686 [id number] 044 [id number] [facility] 2019-12-01 00:00:00 2019-12-01 00:00:00 Viktoriya Witt [facility] Office Building One 1..114 350.1.13.10 4.2.7.2.686 [id number] 044 [id number] [facility] 2019-11-30 00:00:00 2019-11-30 00:00:00 RefJefferson Moya [facility] Building 1.2.840.114 350.1.13.10 4.2.7.2.686 [id number] 044 [id number] [facility] 2019-11-29 00:00:00 2019-11-29 00:00:00 Telephone Kat, Acute Care Clinic [facility] Office Building One 1.2.840.114 350.1.13.10 4.2.7.2.686 [id number] 044 [id number] [facility] 2019-11-28 00:00:00 2019-11-28 00:00:00 Refprabhjot Witt Jefferson [facility] Office Building One 1.2.840.114 350.1.13.10 4.2.7.2.686 [id number] 044 [id number] [facility] 2019-11-25 08:03:12 2019-11-25 08:18:12 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, Adc Lab Jefferson Witt [facility] Building 1.2.840.114 350.1.13.10 4.2.7.2.686 [id number] [facility] 2019-11-25 08:00:00 2019-11-25 08:00:00 Outpatient R BASSAM WITTONY [facility] [id number] [facility] 2019-11-25 00:00:00 2019-11-25 00:00:00 Telephone Eduar Jefferson [facility] Office Building One 1.2.840.114 350.1.13.10 4.2.7.2.686 [id number] 044 [id number] [facility] 2019-11-24 00:00:00 2019-11-24 00:00:00 Telephone Keila Delcid [facility] Building 1.2.840.114 350.1.13.10 4.2.7.2.686 [id number] 044 [id number] [facility] ity [facility] 2019-11-24 00:00:00 2019-11-24 00:00:00 Telephone Rosette Contreras [facility] Office Building One 1..114 350.1.13.10 4.2.7.2.686 [id number] 044 [id number] [facility] 2019-11-23 15:29:34 2019-11-23 23:59:00 Outpatient R FARHANA [facility] [id number] [facility] 2019-11-23 15:15:00 2019-11-23 23:59:00 Hospital Encounter Farhana [facility] 1..114 350.1.13.10 4.2.7.2.686 [id number] 807 [id number] [facility] 2019-11-23 14:33:27 2019-11-23 14:53:27 Urgent Care Pob1, Acute Care Clinic Farhana [facility] Office Building One 1.114 350.1.13.10 4.2.7.2.686 [id number] 044 [id number] [facility] 2019-11-23 14:40:00 2019-11-23 14:40:00 Outpatient R [facility] [id number] [facility] 2019-11-23 00:00:00 2019-11-23 00:00:00 Refill Jefferson Witt [facility] Office Building One 1.114 350.1.13.10 4.2.7.2.686 [id number] 044 [id number] [facility] 2019-11-23 00:00:00 2019-11-23 00:00:00 Refill Farhana [facility] Office Building One 1..114 350.1.13.10 4.2.7.2.686 [id number] 044 [id number] [facility] 2019-11-16 00:00:00 2019-11-16 00:00:00 Telephone Giovany Antoine [facility] Building 1.20.114 350.1.13.10 4.2.7.2.686 [id number] 220 [id number] [facility] 2019-11-15 00:00:00 2019-11-15 00:00:00 Refill Eduar [facility] Office Building One 1..114 350.1.13.10 4.2.7.2.686 [id number] 044 [id number] [facility] 2019-11-10 08:41:49 2019-11-10 08:56:49 Office Visit Eduar Jefferson [facility] Building 1..114 350.1.13.10 4.2.7.2.686 [id number] 044 [id number] [facility] 2019-11-10 08:45:00 2019-11-10 08:45:00 Outpatient R JEFFERSON WITT [facility] [id number] [facility] 2019-11-07 00:00:00 2019-11-07 00:00:00 Telephone Jefferson Witt [facility] Office Building One 1..114 350.1.13.10 4.2.7.2.686 [id number] 044 [id number] [facility] 2019-11-02 00:00:00 2019-11-02 00:00:00 Refill Eduar [facility] Office Building One 1..114 350.1.13.10 4.2.7.2.686 [id number] 044 [id number] [facility] 2019-10-26 00:00:00 2019-10-26 00:00:00 Refill Jefferson Witt [facility] Office Building One 1.2.840.114 350.1.13.10 4.2.7.2.686 [id number] 044 [id number] [facility] 2019-10-24 00:00:00 2019-10-24 00:00:00 Telephone Jefferson Witt [facility] Office Building One 1.2840.114 350.1.13.10 4.2.7.2.686 [id number] 044 [id number] [facility] 2019-10-21 00:00:00 2019-10-21 00:00:00 Refill Giovany Antoine [facility] Building 1.2840.114 350.1.13.10 4.2.7.2.686 [id number] 220 [id number] [facility] 2019-10-18 08:20:00 2019-10-18 08:20:00 Outpatient R [facility] [id number] [facility] 2019-10-14 00:00:00 2019-10-14 00:00:00 Telephone Giovany Antoine [facility] Building 1.2840.114 350.1.13.10 4.2.7.2.686 [id number] 220 [id number] [facility] 2019-10-14 00:00:00 2019-10-14 00:00:00 Telephone Giovany Antoine [facility] Building 1.2840.114 350.1.13.10 4.2.7.2.686 [id number] 220 [id number] [facility] 2019-10-13 00:00:00 2019-10-13 00:00:00 Telephone Eduar [facility] Office Building One 1.2840.114 350.1.13.10 4.2.7.2.686 [id number] 044 [id number] [facility] 2019-10-12 00:00:00 2019-10-12 00:00:00 Refill Jefferson Witt [facility] Office Building One 1.2.840.114 350.1.13.10 4.2.7.2.686 [id number] 044 [id number] [facility] 2019-10-11 00:00:00 2019-10-11 00:00:00 Telephone Jefferson Witt [facility] Office Building One 1.2.840.114 350.1.13.10 4.2.7.2.686 [id number] 044 [id number] [facility] 2019-10-11 00:00:00 2019-10-11 00:00:00 Orders Only Doctor Unassigned, Tool [facility] 1.2.840.114 350.1.13.10 4.2.7.2.686 [id number] 009 [id number] [facility] 2019-10-04 00:00:00 2019-10-04 00:00:00 Refill Eduar [facility] Office Building One 1.2.840.114 350.1.13.10 4.2.7.2.686 [id number] 044 [id number] [facility] 2019-09-29 00:00:00 2019-09-29 00:00:00 Telephone Eduar [facility] Office Building One 1.2.840.114 350.1.13.10 4.2.7.2.686 [id number] 044 [id number] [facility] 2019-09-29 00:00:00 2019-09-29 00:00:00 Telephone Eduar [facility] Office Building One 1.2.840.114 350.1.13.10 4.2.7.2.686 [id number] 044 [id number] [facility] 2019-09-28 00:00:00 2019-09-28 00:00:00 Refill Eduar [facility] Office Building One 1.2.840.114 350.1.13.10 4.2.7.2.686 [id number] 044 [id number] [facility] 2019-09-28 00:00:00 2019-09-28 00:00:00 Telephone Jefferson Witt [facility] Office Building One 1..114 350.1.13.10 4.2.7.2.686 [id number] 044 [id number] [facility] 2019-09-27 00:00:00 2019-09-27 00:00:00 Telephone Jefferson Witt [facility] Office Building One 1..114 350.1.13.10 4.2.7.2.686 [id number] 044 [id number] [facility] 2019-09-26 14:15:35 2019-09-26 14:45:35 Office Visit Jefferson Witt [facility] Office Building One 1.114 350.1.13.10 4.2.7.2.686 [id number] 044 [id number] [facility] 2019-09-26 14:30:00 2019-09-26 14:30:00 Outpatient R JEFFERSON WITT [facility] [id number] [facility] 2019-09-26 00:00:00 2019-09-26 00:00:00 Orders Only Doctor Unassigned, Tool [facility] 1.114 350.1.13.10 4.2.7.2.686 [id number] 009 [id number] [facility] 2019-09-23 13:30:00 2019-09-23 14:11:38 Outpatient R GIOVANY ANTOINE [facility] [id number] [facility] 2019-09-23 13:25:38 2019-09-23 14:11:38 Office Visit Giovany Antoine [facility] Building 1..114 350.1.13.10 4.2.7.2.686 [id number] 220 [id number] [facility] 2019-09-23 00:00:00 2019-09-23 00:00:00 Nurse Triage Francheska Alvarezh [facility] 1.840.114 350.1.13.10 4.2.7.2.686 [id number] 019 [id number] [facility] 2019-09-16 00:00:00 2019-09-16 00:00:00 Telephone Eduar [facility] Office Building One 1..114 350.1.13.10 4.2.7.2.686 [id number] 044 [id number] [facility] 2019-09-13 00:00:00 2019-09-13 00:00:00 Telephone Eduar [facility] Office Building One 1.0.114 350.1.13.10 4.2.7.2.686 [id number] 044 [id number] [facility] 2019-09-13 00:00:00 2019-09-13 00:00:00 Orders Only Doctor Unassigned, Tool [facility] 1.840.114 350.1.13.10 4.2.7.2.686 [id number] 009 [id number] [facility] 2019-09-12 00:00:00 2019-09-12 00:00:00 Refill Eduar [facility] Office Building One 1..114 350.1.13.10 4.2.7.2.686 [id number] 044 [id number] [facility] 2019-09-08 00:00:00 2019-09-08 [facility]:00[facility] 1..114 350.1.13.10 4.2.7.2.686 [id number] 044 [id number] [facility] 2019-09-05 00:00:00 2019-09-05 00:00:00 Refill Jefferson Witt [facility] Office Building One 1.2.840.114 350.1.13.10 4.2.7.2.686 [id number] 044 [id number] [facility] 2019-08-25 00:00:00 2019-08-25 00:00:00 Refill Eduar [facility] Office Building One 1.2.840.114 350.1.13.10 4.2.7.2.686 [id number] 044 [id number] [facility] 2019-08-25 00:00:00 2019-08-25 00:00:00 Refill Eduar [facility] Office Building One 1.2.840.114 350.1.13.10 4.2.7.2.686 [id number] 044 [id number] [facility] 2019-08-23 00:00:00 2019-08-23 00:00:00 Refill Giovany Antoine [facility] Building 1.2.840.114 350.1.13.10 4.2.7.2.686 [id number] 220 [id number] [facility] 2019-08-17 00:00:00 2019-08-17 00:00:00 Juan Giovany Antoine [facility] Building 1.2.840.114 350.1.13.10 4.2.7.2.686 [id number] 220 [id number] [facility] 2019-08-15 00:00:00 2019-08-15 00:00:00 Refill Eduar [facility] Office Building One 1.2.840.114 350.1.13.10 4.2.7.2.686 [id number] 044 [id number] [facility] 2019-08-13 00:00:00 2019-08-13 00:00:00 Refprabhjot Witt [facility] Office Building One 1.0.114 350.1.13.10 4.2.7.2.686 [id number] 044 [id number] [facility] 2019-04-15 00:00:00 2019-04-15 00:00:00 Refill Jefferson Witt [facility] Office Building One 1.2840.114 350.1.13.10 4.2.7.2.686 [id number] 044 [id number] [facility] 2019-04-13 13:52:51 2019-04-13 14:14:54 Office Visit Jefferson Witt [facility] Office Building One 1.114 350.1.13.10 4.2.7.2.686 [id number] 044 [id number] [facility] 2019-04-13 00:00:00 2019-04-13 00:00:00 Orders Only Doctor Unassigned, Tool [facility] 1.2840.114 350.1.13.10 4.2.7.2.686 [id number] 009 [id number] [facility] 2019-04-07 00:00:00 2019-04-07 00:00:00 Refill Eduar [facility] Office Building One 1..114 350.1.13.10 4.2.7.2.686 [id number] 044 [id number] [facility] 2019-04-05 00:00:00 2019-04-05 00:00:00 Telephone Giovany Antoine [facility] Building 1.20.114 350.1.13.10 4.2.7.2.686 [id number] 220 [id number] [facility] 2019-04-05 00:00:00 2019-04-05 00:00:00 Refill Eduar [facility] Office Building One 1.0.114 350.1.13.10 4.2.7.2.686 [id number] 044 [id number] [facility] 2019-03-31 00:00:00 2019-03-31 00:00:00 [facility] One 1.2840.114 350.1.13.10 4.2.7.2.686 [id number] 044 [id number] [facility] 2019-03-29 00:00:00 2019-03-29 00:00:00 Telephone Giovany Antoine [facility] Building 1.2840.114 350.1.13.10 4.2.7.2.686 [id number] 220 [id number] [facility] 2019-03-29 00:00:00 2019-03-29 00:00:00 Orders Only Doctor Unassigned, Tool [facility] 1.2840.114 350.1.13.10 4.2.7.2.686 [id number] 009 [id number] [facility] 2019-03-21 00:00:00 2019-03-21 00:00:00 Telephone Giovany Antoine [facility] Building 1.2840.114 350.1.13.10 4.2.7.2.686 [id number] 220 [id number] [facility] 2019-03-17 00:00:00 2019-03-17 00:00:00 Viktoriya Witt [facility] Office Building One 1.2840.114 350.1.13.10 4.2.7.2.686 [id number] 044 [id number] [facility] 2019-03-17 00:00:00 2019-03-17 00:00:00 Viktoriya Witt [facility] Office Building One 1.2840.114 350.1.13.10 4.2.7.2.686 [id number] 044 [id number] [facility] 2019-03-09 00:00:00 2019-03-09 00:00:00 Viktoriya Witt [facility] Office Building One 1.2.840.114 350.1.13.10 4.2.7.2.686 [id number] 044 [id number] [facility] 2019-03-03 00:00:00 2019-03-03 00:00:00 Viktoriya Witt [facility] Office Building One 1.2.840.114 350.1.13.10 4.2.7.2.686 [id number] 044 [id number] [facility] 2019-02-28 00:00:00 2019-02-28 00:00:00 Viktoriya Witt [facility] Office Building One 1.2.840.114 350.1.13.10 4.2.7.2.686 [id number] 044 [id number] [facility] 2018-11-01 00:00:00 2018-11-01 00:00:00 Viktoriya Witt [facility] Office Building One 1.2.840.114 350.1.13.10 4.2.7.2.686 [id number] 044 [id number] [facility] Results Test Description Test Time Test Comments Results Result Co mments Source [facility] HEMOGLOBIN A1C [id number] 17:50:00* Test Item Value Reference Range Interpretation Comme [facility] POCT HBA1C (test code = 4548-4) 7.5 % 4-6 A Lab Interpretation (test cod e = 53727-9) Abnormal [facility] MOLECULAR [id number] 16:34:56* Test Item Value Reference Range Interpretation Comme [facility] POCT Molecular FluA (test co de = 45065-3) Negative Negative POCT Molecular FluB (test co de = 17559-9) Negative Negative Lab Interpretation (test cod e = 12580-0) Normal [facility] MOLECULAR [id number] 16:34:56* Test Item Value Reference Range Interpretation Comme nts POCT Molecular FluA (test co de = 93722-5) Negative Negative POCT Molecular FluB (test co de = 14144-3) Negative Negative Lab Interpretation (test cod e = 64510-2) Normal [facility] MOLECULAR [id number] 16:30:10* Test Item Value Reference Range Interpretation Comme nts POCT Molecular Strep (test c ode = 74186-7) Negative Negative Lab Interpretation (test cod e = 74845-6) Normal [facility] MOLECULAR [id number] 16:30:10* Test Item Value Reference Range Interpretation Comme nts POCT Molecular Strep (test c ode = 94605-5) Negative Negative Lab Interpretation (test cod e = 11386-8) Normal [facility]. METABOLIC PANEL (52580)2022-07-19 21:35:09* Test Item Value Reference Range Interpretation Comme nts NA (test code = 3822647902) 139 mmol/L 135-145 K (test code = 8459992398) 4.1 mmol/L 3.5-5.0 CL (test code = 3930418510) 102 mmol/L 98-108 CO2 TOTAL (test code = 7765469704) 29 mmol/L 23-31 AGAP (test code = 3770915247) 2-16 BUN (test code = 2240033597) 12 mg/dL 7-23 GLUCOSE (test code = 1484313200) 236 mg/dL 70-110 H CREATININE (test code = 9218341403) 0.59 mg/dL 0.50-1.04 TOTAL BILI (test code = 0175457886) 0.5 mg/dL 0.1-1.1 CALCIUM (test code = 2070831742) 8.8 mg/dL 8.6-10.6 T PROTEIN (test code = 5810279470) 7.0 g/dL 6.3-8.2 ALBUMIN (test code = 9239992756) 4.2 g/dL 3.5-5.0 ALK PHOS (test code = 3117506183) 77 U/L 34-122 ALTv (test code = 1742-6) 27 U/L 5-35 AST(SGOT) (test code = 3972871212) 22 U/L 13-40 eGFR (test code = 1466783701) mL/min/1.73m2 DENISHA (test code = DENISHA) Association [...] imaging tests). Lab Interpretation (test code = 71221-7) Abnormal [facility] WITH [id number] 21:11:06* Test Item Value Reference Range Interpretation Comme nts WBC (test code = 6690-2) See_Comment [Automated [employer]] The system which generated this result transmitted reference range: 4.30 - 11.10 10*3/?L. The reference range was not used to interpret this result as normal/abnormal. RBC (test code = 789-8) See_Comment [Automated [employer]] The system which generated this result transmitted reference range: 3.93 - 5.25 10*6/?L. The reference range was not used to interpret this result as normal/abnormal. HGB (test code = 718-7) 11.4 g/dL 11.6-15.0 L HCT (test code = 4544-3) 36.4 % 35.7-45.2 MCV (test code = 787-2) 80.4 fL 80.6-95.5 L MCH (test code = 785-6) 25.2 pg 25.9-32.8 L MCHC (test code = 786-4) 31.3 g/dL 31.6-35.1 L RDW-SD (test code = 93078-3) 43.3 fL 39.0-49.9 RDW-CV (test code = 788-0) 14.8 % 12.0-15.5 PLT (test code = 777-3) See_Comment [Automated messa ge] The system which generated this result transmitted reference range: 166 - 358 10*3/?L. The reference range was not used to interpret this result as normal/abnormal. MPV (test code = 14913-6) 11.0 fL 9.5-12.9 NRBC/100 WBC (test code = 3842186795) See_Comment [Automated Mine ssage] The system which generated this result transmitted reference range: 0.0 - 10.0 /100 WBCs. The reference range was not used to interpret this result as normal/abnormal. NRBC x10^3 (test code = 6984109494) See_Comment [Automated messa ge] The system which generated this result transmitted reference range: 10*3/?L. The reference range was not used to interpret this result as normal/abnormal. GRAN MAT (NEUT) % (test code = 770-8) 66.5 % IMM GRAN % (test code = 1424895610) 0.80 % LYMPH % (test code = 736-9) 21.8 % MONO % (test code = 5905-5) 7.3 % EOS % (test code = 713-8) 2.8 % BASO % (test code = 706-2) 0.8 % GRAN MAT x10^3(ANC) (test code = 1715009378) 7.14 10*3/uL 1.88-7.09 H IMM GRAN x10^3 (test code = 4558964323) 0.09 10*3/uL 0.00-0.06 H LYMPH x10^3 (test code = 731-0) 2.35 10*3/uL 1.32-3.29 MONO x10^3 (test code = 742-7) 0.79 10*3/uL 0.33-0.92 EOS x10^3 (test code = 711-2) 0.30 10*3/uL 0.03-0.39 BASO x10^3 (test code = 704-7) 0.09 10*3/uL 0.01-0.07 H Lab Interpretation (test code = 78303-0) [id number] 16:47:33* Test Item Value Reference Range Interpretation Comments TROPONIN I (test code = 4569370128) 0.005 ng/mL See_Comment [Automated message] The system which generated this result transmitted reference range: <=0.034. The reference range was not used to interpret this result as normal/abnormal. DENISHA (test code = DENISHA) Reference (Normal) Range (defined by the 99th percentile reference [...] to patient's use of biotin. Lab Interpretation (test code = 50966-0) [facility] (51198)2022-05-29 16:36:15* Test Item Value Reference Range Interpretation Comme nts NA (test code = 1136236927) 137 mmol/L 135-145 K (test code = 2413468297) 4.4 mmol/L 3.5-5.0 CL (test code = 4853406785) 100 mmol/L 98-108 CO2 TOTAL (test code = 4042762429) 22 mmol/L 23-31 L AGAP (test code = 6760579566) 2-16 BUN (test code = 7895287467) 14 mg/dL 7-23 GLUCOSE (test code = 5386611860) 190 mg/dL 70-110 H CREATININE (test code = 2929448933) 0.70 mg/dL 0.50-1.04 TOTAL BILI (test code = 9789123165) 0.3 mg/dL 0.1-1.1 CALCIUM (test code = 6398340003) 9.6 mg/dL 8.6-10.6 T PROTEIN (test code = 5545097611) 6.8 g/dL 6.3-8.2 ALBUMIN (test code = 0535249719) 4.2 g/dL 3.5-5.0 ALK PHOS (test code = 3962756362) 67 U/L 34-122 ALTv (test code = 1742-6) 40 U/L 5-35 H AST(SGOT) (test code = 5352592473) 44 U/L 13-40 H eGFR (test code = 9641052206) mL/min/1.73m2 DENISHA (test code = DENISHA) Association [...] imaging tests). Lab Interpretation (test code = 94397-7) [facility]normal [facility] 16:35:55* Test Item Value Reference Range Interpretation Comme nts LIPASE (test code = 4025168987) 85 U/L 0-220 Lab Interpretation (test cod e = 80874-6) Normal [facility] [id number] 16:18:33* Test Item Value Reference Range Interpretation Comme nts WBC (test code = 6690-2) See_Comment [[employer]ated [employer]] The system which generated this result transmitted reference range: 4.30 - 11.10 10*3/?L. The reference range was not used to interpret this result as normal/abnormal. RBC (test code = 789-8) See_Comment [[employer]ated [employer]] The system which generated this result transmitted reference range: 3.93 - 5.25 10*6/?L. The reference range was not used to interpret this result as normal/abnormal. HGB (test code = 718-7) 12.6 g/dL 11.6-15.0 HCT (test code = 4544-3) 38.5 % 35.7-45.2 MCV (test code = 787-2) 79.2 fL 80.6-95.5 L MCH (test code = 785-6) 25.9 pg 25.9-32.8 MCHC (test code = 786-4) 32.7 g/dL 31.6-35.1 RDW-SD (test code = 73903-1) 43.2 fL 39.0-49.9 RDW-CV (test code = 788-0) 15.1 % 12.0-15.5 PLT (test code = 777-3) See_Comment [[employer]ated [employer]] The system which generated this result transmitted reference range: 166 - 358 10*3/?L. The reference range was not used to interpret this result as normal/abnormal. MPV (test code = 63953-8) 10.3 fL 9.5-12.9 NRBC/100 WBC (test code = 5599903091) See_Comment [Automated me ssage] The system which generated this result transmitted reference range: 0.0 - 10.0 /100 WBCs. The reference range was not used to interpret this result as normal/abnormal. NRBC x10^3 (test code = 9645701406) See_Comment [Automated messa ge] The system which generated this result transmitted reference range: 10*3/?L. The reference range was not used to interpret this result as normal/abnormal. GRAN MAT (NEUT) % (test code = 770-8) 66.7 % IMM GRAN % (test code = 1087715958) 0.80 % LYMPH % (test code = 736-9) 23.3 % MONO % (test code = 5905-5) 5.2 % EOS % (test code = 713-8) 3.0 % BASO % (test code = 706-2) 1.0 % GRAN MAT x10^3(ANC) (test code = 9894432037) 6.50 10*3/uL 1.88-7.09 IMM GRAN x10^3 (test code = 1671770291) 0.08 10*3/uL 0.00-0.06 H LYMPH x10^3 (test code = 731-0) 2.27 10*3/uL 1.32-3.29 MONO x10^3 (test code = 742-7) 0.51 10*3/uL 0.33-0.92 EOS x10^3 (test code = 711-2) 0.29 10*3/uL 0.03-0.39 BASO x10^3 (test code = 704-7) 0.10 10*3/uL 0.01-0.07 H Lab Interpretation (test code = 98282-4) Abnormal [facility] HEMOGLOBIN A1C [id number] 21:18:00* Test Item Value Reference Range Interpretation Comme [facility] POCT HBA1C (test code = 4548-4) 7.5 % 4-6 A Lab Interpretation (test cod e = 54786-8) Abnormal [facility] HEMOGLOBIN A1C [id number] 21:18:00* Test Item Value Reference Range Interpretation Comme [facility] POCT HBA1C (test code = 4548-4) 7.5 % 4-6 A Lab Interpretation (test cod e = 48078-5) Abnormal [facility] [facility] Notes Date/Time Note Provider Source 2023-09-16 13:54:27 EzrCM1nM+88QatpQuGUJUprtcHG4o70yUE bg+rqqDtbAiAB65vBmQyzqwctf+CEO6466T13:54:27 Ilsa Johnson is a 63 year old femalePatient is calling to request a refill on Rx lisinopriL 40 mg tablet. Please advise.[facility] #[id number] - [place], [place] - [address] [employer] CorporationPhone: Klqtplceryydmm signed by Leeanne Ventura at 09/16/2023 1:57 PM ZPX50580-5Bwbvqsjis encounter HfvqEH7005-77-20K49:57:29Telephone encounter NoteTXT1.2.840.073659.1.13.104.2.7 .2.730231|[id number] for patient wzcq65006-7BhwgQAXNRNXCPJPZkordlqt d C-CDA narrative ursw991233290Ljcclyz J Raines[address] ZjlgXqywnumamWqwtpiayoSRTQ44897799 02OAZOJYCRRWGZNGEMOQJXXE0791-96-49 T13:57:291.2.840.509419.1.72.3.15| 1.2.840.520640.1.13.104.2.7.2.7278 [id number] Leeanne Ventura [facility] 2023-09-15 08:20:32 euR3iA5e0uqS0vRY/+4yBz//mOF/zBlM3C rwcBXUU8vcrDhqTO4HKGF5/WWKPlKO6590 -02-13T08:20:32 From: Ilsa JohnsonTo: Office of ALAN Khanent: 09/14/2023 4:46 PM CSTSubject: Medication Renewal RequestRefills have been requested for the following medications:SPIRONOLACTONE 25 mg tablet [Jefferson Witt]Preferred pharmacy: [facility][id number] - [place], [place] - [address] AT [address] [employer] CorporationDeliver method: PickupOutpatient Medication DetailDisp Refills Start End DAWSPIRONOLACTONE 25 mg tablet 180 tablet 0 04/13/2023 -- NoSig: TAKE 1 TABLET BY MOUTH IN THE MORNING AND IN THE EVENINGSent to pharmacy as: spironolactone 25 mg tablet (ALDACTONE)Class: eRXOrder: [id number]/Time Signed: 04/13/2023 08:49E-Prescribing Status: Receipt confirmed by pharmacy (04/13/2023 8:49 AM CDT)Recent VisitsDate Type Provider Dept109/09/22 Office Visit Carla Velasco MD [facility]07/01/23 Office Visit Jefferson Witt MD [facility]05/11/23 Office Visit Jefferson Witt MD [facility]04/08/23 Office Visit Jefferson Witt MD [facility]03/26/23 Office Visit Jefferson Witt MD [facility]02/11/23 Office Visit Jefferson Witt MD [facility]12/22/22 Office Visit Daniel Castellon FNP [facility]11/27/22 Office Visit Jefferson Witt MD [facility]11/12/22 Office Visit Jefferson Witt MD [facility]10/30/22 Office Visit Rosette Contreras PA [facility] MedShowing recent visits within past 540 days with a meds authorizing provider and meeting all other requirementsFuture AppointmentsDate Type Provider Dept10/05/23 Appointment Jefferson Witt MD [facility] MedShowing future appointments within next 150 days with a meds authorizing provider and meeting all other requirements 25187-8Gcyzfdilm encounter DmmlMB0480-82-64Q74:20:46Telephone encounter NoteTXT1.2.840.921148.1.13.104.2.7 .2.360925|[id number] for patient glfd68821-7OqguZDWFHPJSQOMUkyhpuzz d C-CDA narrative text[address] [id number] 59WSBSHWCOPXTALSMYDXVNEB9788-86-43 T08:20:461.2.840.190223.1.72.3.15| 1.2.840.075206.1.13.104.2.7.2.7278 [id number] [facility] 2023-09-11 16:36:11 mkSIYY06Wcza3+dnSouVBZusU70GvAz5Et CCl2ODgSkAg0nsK4M7hPh0nlxmgsr27904 -02-09T16:36:11 Patient notified of all and verbalized understanding. No further needs voiced at this time. 80724-7Gdarivuuq encounter ZxrzKL2563-93-55Y93:36:33Telephone encounter NoteTXT1.2.840.540810.1.13.104.2.7 .2.716809|8144402836OXJucrjbslo for patient dcqh72724-8JfudXJGLAVUMKMVHjylahnu d C-CDA narrative vluz869609050Apbel Flores [address] StreetTXTX[address]75 82SWTYLFNNEEQJCLTBQAKFHG0160-41-26 T16:36:331.2.840.459376.1.72.3.15| 1.2.840.300387.1.13.104.2.7.2.7278 [id number] Melanie Stanley TRAVELING INVENTORY ASSOCIATE [facility] 2023-09-11 13:29:16 FOXoX//atElerMGAUTVYOlfhylAl1eSa/U N1EpG91N1gJTRuLZVyZKxkCQrBSfPR2395 -02-09T13:29:16 Ilsa Johnson is a 63 year old femalePt returning phone call from clinic. Pt is wanting to know how much iron she needs to be taking, she increased her dosage to 65 mg. Please advise.[phone] (home) 58988-1Qimitdiwq encounter OzamMO3903-49-58A41:32:44Telephone encounter NoteTXT1.2.840.053732.1.13.104.2.7 .2.213695|[id number] for patient xaqh15432-5CvnuYYPMLACYGAYMbqnqnpa d C-CDA narrative iyfs326656157Zbvdsb N Miller[address] ZzbbMclfvcohdVzdvmotqpNKSZ55932000 59CFNATAUJWZCGPIRMYKPIMK9302-39-96 T13:32:441.2.840.457562.1.72.3.15| 1.2.840.890438.1.13.104.2.7.2.7278 [id number] Helena John [facility] 2023-09-11 09:18:42 L49umktF6heQgwaqLsnZ3G6PflqwtwnZjO kQ3h3J2gDCo4/8QEBZFXSqAklAxRkK4378 -02-09T09:18:42 Last Refilled: amLODIPine 10 mg yexpob29 ydmtaz45--NoSig: Take 1 tablet by mouth in the morning.Sent to pharmacy as: amLODIPine 10 mg tablet (NORVAS)Class: eRXRoute: OralOrder: [id number]/Time Signed: 03/26/2023 13:04E-Prescribing Status: Receipt confirmed by pharmacy (03/26/2023 1:05 PM CDT)Notes:Recent VisitsDate Type Provider Dept109/09/22 Office Visit Carla Velasco MD [facility]07/01/23 Office Visit Jefferson Witt MD [facility]05/11/23 Office Visit Jefferson Witt MD [facility]04/08/23 Office Visit Jefferson Witt MD [facility]03/26/23 Office Visit Jefferson Witt MD [facility]Tara[facility] Med02/11/23 Office Visit Jefferson Witt MD [facility]12/22/22 Office Visit Daniel Castellon FNP [facility]11/27/22 Office Visit Jefferson Witt MD [facility]11/12/22 Office Visit Jefferson Witt MD [facility]10/30/22 Office Visit Rosette Contreras PA [facility] Fam MedShowing recent visits within past 540 days with a meds authorizing provider and meeting all other requirementsFuture AppointmentsDate Type Provider Dept10/05/23 Appointment Jefferson Witt MD AngDb [facility] Fam MedShowing future appointments within next 150 days with a meds authorizing provider and meeting all other requirements 79438-8Shekwchwp encounter MmxdWU9993-28-70U01:20:08Telephone encounter NoteTXT1.2.840.806536.1.13.104.2.7 .2.619323|3912445450WXXjxfogdjj for patient zmlv40500-7CbtyYUPFXQXAWIRItqdlfrx d C-CDA narrative kgwd607113731Jabep J Bunte RNUT[facility] - [address] LxxiBxmfhbmvqUwadhmttpXASC70100504 09XNLVWBVKIDZZTWAHKYZRCA4498-89-65 T09:20:081.2.840.254374.1.72.3.15| 1.2.840.380250.1.13.104.2.7.2.7278 79_[id number] Maggie Rusholiver CHONG [facility] 2023-09-10 14:05:40 S5VfjfTIlzdLVJej81k0B8ybwq7a2CO526 48808npg8CDHDiJ28RvPp4DU+qR/gW69442023T14:05:40 Continue with the otc iron 41921-5Alrgzlytb encounter KudtJC3012-08-72D25:06:35Telephone encounter NoteTXT1.2.840.307706.1.13.104.2.7 .2.828961|2261238813HEDfddrrgte for patient gaad88598-2XhgtKDDQSZXELTXKxvhbxmo d C-CDA narrative text[address]Gal[address]onGalvestonTXTX[address] 86UVPWSMZCQZWQJUJEPUQAAI7657-01-15 T14:06:351.2.840.666946.1.72.3.15| 1.2.840.989046.1.13.104.2.7.2.7278 79_[id number] [facility] 2023-09-10 13:55:38 YK96eQZClH2vrzBM8V6oNAwvbqoz56FifL MSUq04OeU+1PpqBUeHEwJclCAu10G29273 -02-08T13:55:38 Please review and adviseLOV 07/09/23NOV 10/05/23 37105-6Rhuuzfzoo encounter RlisMU1328-34-03T08:56:14Telephone encounter NoteTXT1.2.840.478574.1.13.104.2.7 .2.206377|4915906444PMFxkwrqmiw for patient fzcf78027-7SxfeSMGFSUBYAKBBwuxdmmn d C-CDA narrative text[address]TXTX[address] 21KLMDKSTKJMUGKUQYIYSOFV8075-58-77 T13:56:141.2.840.539847.1.72.3.15| 1.2.840.150619.1.13.104.2.7.2.7278 79_[id number] [facility] 2023-09-10 13:47:51 OIVG/hS6yr/UB+oYe6oNENblunEvcT702X Yzp4kSnbhp5oOLPwrXqlD+roy5MjFY5645 -02-08T13:47:51 Ilsa Johnson is a 63 year old female that states her recent lab work showed that she had been low in iron. The pt states that she is taking 28mg of iron but still feels tired and run down. The pt is asking how much iron she should take.Please advise. 66782-7Xdtyqskuu encounter WdfwUW4361-90-72Y95:49:30Telephone encounter NoteTXT1.2.840.482104.1.13.104.2.7 .2.671973|4475229170TNQdnqcqmog for patient pvrp24367-6UydqKUJHGMLMJKPFsfcazlu d C-CDA narrative umox685581427Knks Jrab46 [address] StreetTXTX[address] 57IBZHERXLWALLLISONHXVKX5903-71-75 T13:49:301.2.840.183935.1.72.3.15| 1.2.840.957372.1.13.104.2.7.2.7278 79_[id number] Stephanie Crsepo [facility] 2023-09-04 09:03:15 kLNrcXJkY+VqD7GDlOk88uXJ6MAPuLDQvc u+A4tQhQAihhvHAKLRnmhaKxvfN7RA7896 -02-02T09:03:15 Tried to reach Ms. Johnson to discuss concerns and the benefits of jardiance, however was unable to reach her and left a voice mail at this time.Will follow up again. 16992-7Sfpxvsrim encounter PkmyPQ5909-84-94Q75:04:41Telephone encounter NoteTXT1.2.840.503295.1.13.104.2.7 .2.335469|8629096450WJDcesztggw for patient rnhw79808-2RpodYEUMDWITOZAJtozaddj d C-CDA narrative textIM-ENDOCRINOLOGY,DIABETES & METABOLISMIM-ENDOCRINOLOGY,DIABETE S & METABOLISM[address] KrcmNvsnxaeiwLtxsfasrpDWLG55952592 72ABAWABGCGGXTKEGDILRZSW2248-63-29 T09:04:411.2.840.120581.1.72.3.15| 1.2.840.080556.1.13.104.2.7.2.7278 [id number] IM-ENDOCRINOLOGY,CARIDDA BETES & METABOLISM [facility] 2023-09-02 08:32:48 lMuZgGczSG3v4Pm2YvA3KedIB7S4JYIonn NoZ6JKDCkQIueq1RZlKt21DEihr0Ar6622 -01-31T08:32:48 From: Ilsairaida JohnsonTo: Office of ALAN Khanent: 09/01/2023 7:05 PM CSTSubject: Medication Renewal RequestRefills have been requested for the following medications:clonazePAM 1 mg tablet [Jefferson Witt]Preferred pharmacy: [facility] #[id number] - [place], [place] - [address] [facility] [address] method: PickupRecent VisitsDate Type Provider Dept109/09/22 Office Visit Carla Velasco MD [facility]07/01/23 Office Visit Jefferson Witt MD [facility]05/11/23 Office Visit Jefferson Witt MD [facility]04/08/23 Office Visit Jefferson Witt MD [facility] Med03/26/23 Office Visit Jefferson Witt MD [facility] Med02/11/23 Office Visit Jefferson Witt MD [facility] Med12/22/22 Office Visit Daniel Castellon FNP [facility]11/27/22 Office Visit Jefferson Witt MD [facility]11/12/22 Office Visit Jefferson Witt MD [facility] Med10/30/22 Office Visit Rosette Contreras PA [facility] Fam MedShowing recent visits within past 540 days with a meds authorizing provider and meeting all other requirementsFuture AppointmentsDate Type Provider Dept10/05/23 Appointment Jefferson Witt MD [facility] F[facility] MedShowing future appointments within next 150 days with a meds authorizing provider and meeting all other requirements 14365-0Xsqtihhve encounter LgsaFV6688-50-49Q66:32:59Telephone encounter NoteTXT1.2.840.433476.1.13.104.2.7 .2.886902|4164206418QIZqjcquwzq for patient jzgv59691-6GlocCKHGYQJMBHDGdavozoj d C-CDA narrative text[address] QdoyOnwgzhiuoYomymntxjUXVI58424569 95MBQJOTIQHJZKHRHACLIASE3426-79-82 T08:32:591.2.840.215325.1.72.3.15| 1.2.840.735624.1.13.104.2.7.2.7278 79_[id number] [facility] 2023-08-18 16:13:14 BwY5vs2gM/SBG5Jaf5MRMOCDmXhRmHbAl/ +wk8MhuOFMiHGX8SNR9op2K1hEOzAf2749 -08-18T16:13:14 Images from the original note were not included.Requested RenewalsName from pharmacy: CHLORHEXIDINE 0.12% ORAL RINS 473MLWill file in chart as: CHLORHEXIDINE 0.12 % mouthwashSig: SWISH AND SPIT 15 ML BY MOUTH TWICE DAILYDisp: 473 mL Refills: 1 (Pharmacy requested: Not specified)Start: 08/18/2023lass: eRXFor: GingivitisLast ordered: 9 months ago (10/27/2022) by Madhu Anne refill: 11/27/2022Rx #: [id number]|1|0|1General Refills Lcjdhl3208/18/2023 04:12 PMProtocol Details Valid encounter within last 12 monthsTo be filled at: [facility] #[id number] - [place], [place] - [address] AT [address] [facility] VisitsDate Type Provider Dept109/09/22 Office Visit Carla Velasco MD [facility]07/01/23 Office Visit Jefferson Witt MD [facility]05/11/23 Office Visit Jefferson Witt MD [facility]04/08/23 Office Visit Jefferson Witt MD [facility]03/26/23 Office Visit Jefferson Witt MD [facility] Med02/11/23 Office Visit Jefferson Witt MD [facility]12/22/22 Office Visit Daniel Castellon FNP [facility]11/27/22 Office Visit Jefferson Witt MD [facility]11/12/22 Office Visit Jefferson Witt MD [facility] Med10/30/22 Office Visit Rosette Contreras PA [facility] Fam MedShowing recent visits within past 540 days with a meds authorizing provider and meeting all other requirementsFuture AppointmentsDate Type Provider Dept10/05/23 Appointment Jefferson Witt MD Ang-Db [facility] MedShowing future appointments within next 150 days with a meds authorizing provider and meeting all other requirements 13744-2Vlhnzmfbg encounter KsaaBK4611-18-08A57:13:21Telephone encounter NoteTXT1.2.840.907948.1.13.104.2.7 .2.928326|0980029306PPOucpvffwz for patient wypw08415-1VbzmFZSYGEIROJWRwzehpzx d C-CDA narrative text[address] DpezPrbovetkvWrcxqnwpyOUAE07082704 74OQEDFMKVZCMNRSWXXBNUWD5419-57-55 T16:13:211.2.840.945806.1.72.3.15| 1.2.840.577018.1.13.104.2.7.2.7278 79_[id number] [facility] 2023-08-14 08:45:00 AA+FLMLiI9yq7U4VWTn4QjUiUPnWwc7UBc mlvoMjvYx+wNn+IWYro89AcxgIisGw2768 -01-12T08:45:00 Images from the original note were not included.Venipuncture collection performed by clean technique on the right anticubitus. Total of 1 attempts were made. Slight pressure and a bandage/dressing were applied to the site(s). The patient experienced no complications. The following specimens were processed according to instructions and sent to [facility] laboratories per lab order on 08/14/2023:LT BLUESST 1REDLAV 1PPTDK GREEN (LiHep)DK GREEN (SodH)GRAYDK BLUE (K2)DK BLUE (S)ACDBlood CultureNIPT/NTD 88195-7Dumbg GctfMM6157-48-28U38:49:18Nurse NoteTXT1.2.840.577218.1.13.104.2.7 .2.073406|[id number] for patient tofl59153-5Jmjll NoteLNNARRATIVEFormatted C-CDA narrative textUT[address] KncfZuvutieldJjlidjsmfQREM30919722 50VBZRQOJNMNCSNTPFRDFKFC5644-83-11 T08:49:181.2.840.765824.1.72.3.15| 1.2.840.141244.1.13.104.2.7.2.7278 79_[id number] [facility] 2023-08-10 14:06:30 bidZqqSZ0y9QZHDvc4sQ/o/Z7A22u2xVFK yTSHUmQGbhjUdlAKTBa2J8rGv4APXt5859 -01-08T14:06:30 Images from the original note were not included.Name from pharmacy: GLIPIZIDE ER 5MG TABLETSWill file in chart as: GLIPIZIDE XL 5 mg 24 hr tabletSig: TAKE 1 TABLET BY MOUTH DAILY WITH BREAKFASTLov 07/10/23Diabetes is Moderately controlled.--Take Tresiba 48 units once daily--Reduce metformin to 850 mg once daily--Continue Jardiance 10 mg daily.--Stop glipizide.--Emphasized lifestyle modifications.On July 17, 2023Cindi PaytonR109/17/22 8:59 AMNotePt calling says she need to go over meds is having issues with empagliflozin (JARDIANCE) 10 mgMaking her urinate often and says it not helping lowering her blood sugars just want to stay on metformin and glipizide onlyRouting to Elina if ok to stop jardiance and take glipizide and metformin 21421-8Izmhbbboc encounter GkapQF6012-54-16H79:11:33Telephone encounter NoteTXT1.2.840.087778.1.13.104.2.7 .2.042805|[id number] for patient aakd46866-7GvueXOSRFZFNSTWVukwcwss d C-CDA narrative abxs467742573Lyhiuz C Fito [address] NjjcJtddoxujpSvuqolsmgFIHJ98902065 18VMIXTTBMNPRFVCNLIWJVNF4745-68-95 T14:11:331.2.840.582273.1.72.3.15| 1.2.840.089270.1.13.104.2.7.2.7278 79_[id number] Alexandre Cabral Fito [facility] 2023-08-07 08:19:10 /8ikmw189jIoKH+2PzfUS1Ky3awKz9NiUX sx6IarYkoOah/2jsaCABWa/MiCvThB0073 --T08:19:10 Images from the original note were not included.Requested RenewalsName from pharmacy: TIZANIDINE 4MG TABLETSWill file in chart as: TIZANIDINE 4 mg tabletSig: TAKE 1 TABLET BY MOUTH EVERY 8 HOURS NEEDEDDisp: 270 tablet Refills: 0 (Pharmacy requested: Not specified)Start: 08/07/2023lass: eRXNon-formulary For: Chronic back pain, unspecified back location, unspecified back pain lateralityLast ordered: 2 months ago (05/13/2023) by Jefferson Witt MDLasjames refill: 05/13/2023Rx #: [id number]|1|0|1Provider Review Required Vyqfsz2108/07/2023 05:46 AMProtocol Details This refill cannot be delegatedValid encounter within last 12 monthsTo be filled at: [facility][id number] - [place], [place] - [address] AT [address] [employer] VisitsDate Type Provider Dept109/09/22 Office Visit Carla Velasco MD Ang[facility]Db [facility] Med07/01/23 Office Visit Jefferson Witt MD [facility] Med05/11/23 Office Visit Jefferson Witt MD AngTaraDb [facility] Med04/08/23 Office Visit Jefferson Witt MD [facility] Med03/26/23 Office Visit Jefferson Witt MD [facility] Med02/11/23 Office Visit Jefferson Witt MD [facility] Med12/22/22 Office Visit Daniel Castellon FNP [facility] Med11/27/22 Office Visit Jefferson Witt MD [facility] Med11/12/22 Office Visit Jefferson Witt MD [facility] Med10/30/22 Office Visit Rosette Contreras PA Ang-Db [facility] Fam MedShowing recent visits within past 540 days with a meds authorizing provider and meeting all other requirementsFuture AppointmentsDate Type Provider Dept10/05/23 Appointment Jefferson Witt MD [facility] Fam MedShowing future appointments within next 150 days with a meds authorizing provider and meeting all other requirements 79650-7Xvjdiiyph encounter NwqtGG8748-36-25J78:19:20Telephone encounter NoteTXT1.2.840.871271.1.13.104.2.7 .2.539726|[id number] for patient hwxq69134-2YsynJUHRYWZJNIJZalrftta d C-CDA narrative [address]vdGalvestonGalvestonTXTX[address] 40GISSSJPTPWKDRCXDBSLMUP8755-10-86 T08:19:201.2.840.319386.1.72.3.15| 1.2.840.586127.1.13.104.2.7.2.7278 [id number] [facility] 2023-08-05 10:02:47 wzB7f9ynKUZeNK2c9VbmPvjiv6bhHXkRbU RV6D3HVF1jO9FAb5tGKJKXfM+zuJuE2142 -08-05T10:02:47 Images from the original note were not included.Last Refilled: 07/07/23Notes:[facility] #[id number] - [place], [place] - [address] [employer]: Uappuy VisitsDate Type Provider Dept109/09/22 Office Visit Carla Velasco MD Ang-Db [facility] Med07/01/23 Office Visit Jefferson Witt MD AngTaraDb [facility] Med05/11/23 Office Visit Jefferson Witt MD AngTara[facility] Med04/08/23 Office Visit Jefferson Witt MD AngTara[facility] Med03/26/23 Office Visit Jefferson Witt MD AngTara[facility] Med02/11/23 Office Visit Jefferson Witt MD AngTara[facility] Med12/22/22 Office Visit Daniel Castellon FNP Ang-Db [facility] Med11/27/22 Office Visit Jefferson Witt MD AngTara[facility] Med11/12/22 Office Visit Jefferson Witt MD AngTaraDb [facility]am Med10/30/22 Office Visit Rosette Contreras PA Ang-Db [facility]am MedShowing recent visits within past 540 days with a meds authorizing provider and meeting all other requirementsFuture AppointmentsDate Type Provider Dept10/05/23 Appointment Jefferson Witt MD Ang-Db [facility]am MedShowing future appointments within next 150 days with a meds authorizing provider and meeting all other requirementsclonazePAM 1 mg tabletSig: TAKE 1 TABLET BY MOUTH FOUR TIMES DAILY NEEDED FOR PANICDisp: 120 tablet Refills: 0Start: 4Class: eRXFor: AnxietyLast ordered: 4 weeks ago (07/07/2023) by Oh Everett Review Required Zqjxbk7208/05/2023 08:19 AMProtocol Details This refill cannot be delegatedValid encounter within last 12 monthsTo be filled at: [facility] #[id number] - [place], [place] - [address] [employer] [address]-4Zqnphpiio encounter StxbVD7294-59-42J22:03:06Telephone encounter NoteTXT1.2.840.359559.1.13.104.2.7 .2.868467|[id number] for patient jilj18709-7WxucILOYJDUHPQKIbtyofjp d C-CDA narrative oasv053959651Bchuvc L Cantu [address] VftxEqycroojdRtnyljspxKBZY10615387 56ZJMKWMNAGGAETHQCKHHUZC9819-81-19 T10:03:061.2.840.857046.1.72.3.15| 1.2.840.620527.1.13.104.2.7.2.7278 79_[id number] Rebecca Francis [facility] 2023-08-05 08:16:59 CwIXvu5NhJQ52vvxuwqpcGZsmpxCVWh6Nl IGCpeu8kc7DlZB8ZjoVsku/o1M63+91370 -08-05T08:16:59 Ilsa Johnson is a 63 year old femalePatient requesting a refill of:Medication: clonazePAMDose: 1 mgRoute: oralQuantity: 120 tabletsPharmacy:[id number] [place], [place] - [address] [facility] [address] [place] [address]Gdcde: [phone] Pufh appt.: 07/01/23Next appt.: 10/05/23 70791-6Qjytendjz encounter NindMY4952-31-09P97:18:43Telephone encounter NoteTXT1.2.840.178257.1.13.104.2.7 .2.436567|6745411774PGTnuicssvu for patient tqgp65763-9NwvdJFDEDVWFLDRVccpmxqj d C-CDA narrative text[address] StreetTXTX[address]75 99DMCWBBRQASNKREZFSXFDTE6199-46-51 T08:18:431.2.840.217138.1.72.3.15| 1.2.840.562810.1.13.104.2.7.2.7278 79_[id number] [facility] 2023-08-04 09:47:45 Jr6AAbxbbLjUYvCi6Y4fIEB8sPRd4TEsjU NfC0VD7LG2H0Q4ZCZTr9GQNnermEOb2575 -01-02T09:47:[address] orders if approved 66075-4Xpesoajmh encounter LkjmOR4198-72-26I55:48:02Telephone encounter NoteTXT1.2.840.000876.1.13.104.2.7 .2.472249|0623145498LHRajlcziqn for patient zvrs86787-9KqjoZJRHEXZKKROAhrxxtur d C-CDA narrative haqm140874259Zpepzdy R Leon MA[address]TXTX[address]75 27SIEYZSGAMKMZJJUBLGUQYD3302-32-17 T09:48:021.2.840.776033.1.72.3.15| 1.2.840.770605.1.13.104.2.7.2.7278 79_[id number] Gabi Kirkland MA [facility] 2023-08-04 08:36:08 rKa1ptHjsegtWp/RYNZGNm2fkEdIl9iuQB AL4IXK65301LUNFhalAZwIU7PQe6Io0988 -01-02T08:36:08 Ilsa Johnson is a 63 year old female calling in requesting lab orders patient wants to check her hemoglobin as well as Iron.Please advise 37050-6Jhopdxrot encounter OrkhIA1711-61-39I56:36:53Telephone encounter NoteTXT1.2.840.334714.1.13.104.2.7 .2.001413|[id number] for patient xyfw73864-8TydzKVMVMNFAFDCOejoljmf d C-CDA narrative zqdg339547010Xaxqigwqyky S [address] Cg[id number] 60DWWLNLYAEISIJYGLKLYVLS8423-99-72 T08:36:531.2.840.946552.1.72.3.15| 1.2.840.053162.1.13.104.2.7.2.7278 79_[id number] Nicola Craig [facility] 2023-07-30 14:50:19 D0rXfHxL0pxv+3ZEWhoFZwbUtuQpjUysI3 uR2vMSaDuhMOZuQooA8jq5dB6mDmDC5984 -12-28T14:50:19 JULIO:07/10/2023NOV: 4Last note;Plan--take Tresiba 48 units once daily--Reduce metformin to 850 mg once daily--Continue Jardiance 10 mg daily.--Stop glipizide.Return in about 4 months (around 11/09/2023). Refilled Gabapentin 85931-6Fngkdomiv encounter CqyyMM1098-57-14P01:57:13Telephone encounter NoteTXT1.2.840.963466.1.13.104.2.7 .2.823251|[id number] for patient dkeq30065-3CvjsZSXBDULRFZMAmmqihwk d C-CDA narrative [id number] [place] [id number] 46UYNVRQLPVHSHQIASKKAHKE9151-14-11 T14:57:131.2.840.280041.1.72.3.15| 1.2.840.443740.1.13.104.2.7.2.7278 79_007 Sarah Cantrell [facility] 2023-07-17 08:57:47 LLnPOSjt/VIQB7uEWEMJVLRQ1xMU73t7Ng BvGd4FoU0/Sf/L5fntjgr7qDgntrYq6918 -12-15T08:57:47 Pt calling says she need to go over meds is having issues with empagliflozin (JARDIANCE) 10 mgMaking her urinate often and says it not helping lowering her blood sugars just want to stay on metformin and glipizide only 42771-8Ttuurgnrj encounter NqckYS0586-80-82F39:59:42Telephone encounter NoteTXT1.2.840.145385.1.13.104.2.7 .2.545922|[id number] for patient hbwt43062-8VcfhQKLGBLTRRGQWotuucub d C-CDA narrative [id number] Rodriguez[id number] 43EMAVCHYWGTWIGYDYXMBNBC8082-64-85 T08:59:421.2.840.147980.1.72.3.15| 1.2.840.096369.1.13.104.2.7.2.7278 79_[id number] Nevaeh Payton [facility] 2023-04-20 14:19:42 gHMm4Lr6w7ATv+5T17fp2tA42bFW1ojVQF zhFVgYNcZqnsOW1O6DvEaCsFmk7bBJ4497 -09-18T14:19:42 Order placed via parachute. Will update as carrie permits. 75235-6Kvrprfifi encounter ExbdBP7433-96-16E81:20:00Telephone encounter NoteTXT1.2.840.768550.1.13.104.2.7 .2.233990|[id number] for patient piwh01197-3AodrNVJIYFJPDQ[address] [place], [place] [id number] 85BCUUCOBSEKFKJDYFLOENCD5600-23-54 T14:20:001.2.840.855751.1.72.3.15| 1.2.840.507490.1.13.104.2.7.2.7278 79_[id number] [facility] 2023-04-20 06:25:22 PwyaDgeua7U0Szc0lzV2wrcmqpoR8obsJA e/8mzInDxPIlRw0QmFnO3VD0UJ8+pp26332022T06:25:22 [place] [address]-6Hdczuwiyl encounter XsseVU4855-96-59K40:25:29Telephone encounter NoteTXT1.2.840.523959.1.13.104.2.7 .2.204302|[id number] for patient zwpf92205-9VdctRHFGHUVISD[id number] 09NQYFOQVARAUGVQOOELPFJU3581-66-13 T06:25:291.2.840.433444.1.72.3.15| 1.2.840.034569.1.13.104.2.7.2.7278 [id number] [facility] 2023-04-17 08:09:19 X3itW8yufIIpqit0mEC1yT3kLAi2pd3PSF //irnAkSEbez+5K0BCg7/7pybI718c9294 -09-15T08:09:19 Please review and advise 94302-6Nasvkvjmu encounter DnrlXN1521-96-03U86:09:35Telephone encounter NoteTXT1.2.840.460335.1.13.104.2.7 .2.657284|[id number] for patient zfhr71259-2AgiyGTIDBYQBJF[address] SgxtBosfxtunySwfmjavbmLIEI14003261 98WDFNZDOKCINZFUKZWPOLCV5594-97-90 T08:09:351.2.840.758602.1.72.3.15| 1.2.840.521822.1.13.104.2.7.2.7278 [id number] [facility] 2023-04-15 13:14:13 +MsU6XN2zI8H8rbIkv9CXuqdGuscrrHgtv Y1eZQP3mOijcpNRp1S4NTx9YQavGRj3057 -09-13T13:14:13 Patient is requesting an order for a bed rail. She is not sure if Medicare will pay for it. 09785-2Hhtnnlhtm encounter LstxDZ0477-80-41A71:15:00Telephone encounter NoteTXT1.2.840.241409.1.13.104.2.7 .2.109255|[id number] for patient rgue36791-6JrecLB94881964Yzhvl S Hernandez[id number] 17JYOAILCYRRROVIVZWEHUPO1308-49-72 T13:15:001.2.840.146494.1.72.3.15| 1.2.840.886532.1.13.104.2.7.2.7278 [id number] Rashida Marrero [facility] 2023-04-13 16:17:55 BjN6H8OBfkbcH8yURUg+4XlsLxPfjuxDLG jrD0SA9an4C9xwOwtN2Q34tx8QTCIw3931 -09-11T16:17:55 Medication sent in per and Anna with [facility] has been notified. She stated she will contact the patient to let her know. 28367-9Wwbzvofhi encounter KzyuXM0987-63-47S53:19:02Telephone encounter NoteTXT1.2.840.363450.1.13.104.2.7 .2.557365|[id number] for patient gxpz46455-7CggyATUITMCYNW[id number] 09CNEBXYXUFJSZPKOZSDFLGE2836-89-73 T16:19:021.2.840.056277.1.72.3.15| 1.2.840.121706.1.13.104.2.7.2.7278 [id number] [facility] 2023-04-13 15:35:56 phw8g9v/q04Lz4qjh2gFjavG4+lXjuflAP G8OdTNuvNULJU1BAMaTJh+U4Euslkx3261 -09-11T15:35:56 Ok diflucan 150mg times 1 73160-6Zzmwqvqtf encounter JqydGG5659-03-81E01:36:22Telephone encounter NoteTXT1.2.840.122692.1.13.104.2.7 .2.300304|[id number] for patient hocm29754-8QfbtGICHMZJRIV[id number] 64SPWOFJTIRLZXSYCBTAVMDH8387-19-87 T15:36:221.2.840.893193.1.72.3.15| 1.2.840.483269.1.13.104.2.7.2.7278 [id number] [facility] 2023-04-13 14:46:45 k+UAWvd3wSeAF+00hMTMKWvkdQEygbqz0C Z57v0jPCkoHoAZ/8obMEBwsCgWHld12455 -09-11T14:46:45 Anna with [facility] is calling in requesting medication for current yeast infection due to recent ABX usage.Please advise 50148-2Zlwzjdfld encounter KsvgRS3041-73-78H43:47:50Telephone encounter NoteTXT1.2.840.269754.1.13.104.2.7 .2.576618|[id number] for patient trpc28707-1HbnsTJ659057402Iyvxrpji her S [id number] 46QCXIDDRDFJOLOCPBDLTYKD0189-22-46 T14:47:501.2.840.051753.1.72.3.15| 1.2.840.700568.1.13.104.2.7.2.7278 [id number] Nicola Craig [facility] 2023-04-08 07:59:50 xwt3XYzcAjFvyq1Nrvqaf3bkpexAymMF1J qFTM90xH39Wy0epIl4G73WoEgJcWsQ9623 -09-06T07:59:50 Next Appt: With Family Medicine (Jefferson Witt MD)04/08/2023 at 9:30 AMAdam take care of this at her appt today per Dr. Witt 05765-0Czpygjqlb encounter AwbkSX7414-18-50J97:00:37Telephone encounter NoteTXT1.2.840.629733.1.13.104.2.7 .2.671839|[id number] for patient vwij40251-9MfqzKOCQJANDMR[id number] 39EKRZXQVSBNPHCUOBTCERRB2848-27-65 T08:00:371.2.840.559371.1.72.3.15| 1.2.840.523482.1.13.104.2.7.2.7278 [id number] [facility] 2023-04-07 15:50:18 9jF0Uh7qqsQ8mVf+Zj29M7E0uBp0v1sz/0 7sXghS7sW1ZJmc/nCwTX6ZEdmywjUD4665 -09-05T15:50:18 Pt says she need larger wheel chair the one she has is uncomfortable she uses [facility] 18703-3Irgmwwzby encounter PeliNY9046-95-71I30:51:05Telephone encounter NoteTXT1.2.840.194050.1.13.104.2.7 .2.981137|[id number] for patient ewlw89777-9WqdhVI821359714Fijsu Rodriguez[id number] 87TAPTXVDWPWWPLVDWOSXEIA9146-04-94 T15:51:051.2.840.007865.1.72.3.15| 1.2.840.840234.1.13.104.2.7.2.7278 [id number] Nevaeh Payton [facility] 2023-03-28 15:03:00 Kky3fvoclUICTqWJelidqCN0KKPej7KhtV LAtwphxxa8iV9wtF4gLEuQwSYSeCoY0000 -08-26T15:03:00 Regarding: [id number], 62y/f, BP last 2 nights over 200, today it is 155/70. seeking advice about ER?----- Message from Daphnie Barragan sent at 03/28/2023 3:03 PM CDT -----Ilsa Johnson is a 62 year old female 48285-4Kdowgpxxl encounter KpsaFQ5961-79-95R31:03:49Telephone encounter NoteTXT1.2.840.706371.1.13.104.2.7 .2.655366|[id number] for patient zdpq23728-2KywxXK063457107Iynac G Stenstadvold [id number] 32RLVCWLIGPXQKZLZFZHLRJE9245-85-00 T15:03:491.2.840.652597.1.72.3.15| 1.2.840.785772.1.13.104.2.7.2.7278 [id number] Alana Freire RN [facility] 2023-03-28 15:03:00 bDUeZ7dug7wQQe2h2y1P+CXoQGv/11ruby aUkJI9q+uJQBXTCexZKX3+THlwyS333272 -08-26T15:03:00 Adult Triage AssessmentLast Clinic Visit: 03/26/23 Hypertension follow up , back painPrimary Symptom: "I'm under a lot of stress , my is sick, my foot is infected, worrying about kids" "I think it is a panic" elevated blood pressure Onset / Duration: Last night systolic was over 200 over 80, 155/75 is most current Location / Description: Systemic Pain / Severity: Lower back down leg 3/10 worse with walking Associated Symptoms: Infected foot makes ambulation difficult, no chest pain, at night chest sometimes feels heavy, but relieved by Clonazepam, no numbness or tingling Fever / Method: no fever today Hydration: 4 cups of water, voiding as normal Treatment so far: Took both Amlodipine and Lisinipril this morning Effect on ADL's: Believes it is anxiety/worrying LMP: NA Pre-existing condition / Immunocompromised: Hypertension, chronic pain, T 2 DM Reason for Disposition [1] Systolic BP >= 130 OR Diastolic >= 80 AND [2] taking BP medicationsProtocols used: High Blood Cadxwlnd-YARJH-PMPtnqjhr calling concerned of elevated blood pressure last night. The most current reading today is 155/75. She has no other symptoms. States she is worrying more over her infected foot, and her is ill, and she believes stress may be a contributing factor. Discussed ways to relax, and decompress, such as reading or journaling. Discussed reasons to call back, and keeping a log of blood pressure reading to present with PCP at follow up. She agrees with this plan.Alana Freire [facility] 37249-0Aoubamaog encounter OpheQS9724-50-03W98:36:19Telephone encounter NoteTXT1.2.840.285059.1.13.104.2.7 .2.616886|[id number] for patient expk11450-8CulcBGINRCXYHF[id number] 82YCEOYVQWSWGNCAHYQFQKLF4605-43-18 T15:36:191.2.840.369440.1.72.3.15| 1.2.840.758277.1.13.104.2.7.2.7278 [id number] [facility] 2023-03-27 15:08:46 CK1f+TLvzZ5v1771/RWO9IjgPxk2PntL7B NAcUAqtlu01OGJx5GJUxIG9mPJRAvv2019 -08-25T15:08:46 [facility] cert for 03/15/23-05/13/23 approved and ready for provider signature in suture sign. Please review and sign if appropriate. 48952-3Rrtupidtc encounter IgjcHQ1047-57-56Z97:11:04Telephone encounter NoteTXT1.2.840.321858.1.13.104.2.7 .2.473052|[id number] for patient cgmq91755-4TtpmFQ373900419Gfmgbo Bergen RN[id number] 43IQVJJDJHLQBOTKLCXYNKSR3171-15-18 T15:11:041.2.840.910405.1.72.3.15| 1.2.840.836487.1.13.104.2.7.2.7278 [id number] Dianna Bell RN [facility] 2023-03-26 07:46:02 gRLFPMt9QHQoPNF4fsXYPexSEVZHgCmnOV MAdTbGXVdfmnPZcGf1GJ72FCUG3zqb8258 -08-24T07:46:02 Spoke with patient stated " I have been having bad with my blood pressure yesterday its been going up 185/89. I have been taking medication for blood pressure medication. I have been under a lot of distress I have been battling an infection on leg, my soon tried to commit suicide, and my was diagnosed with cancer. Its just to much for me." Patient denies any severe headaches or chest pain at this time. Recommendations: appointment made with provider for today for evaluation and treatment. ER precautions informed if worsening of symptoms occur. Patient verbalized understanding and agreed with recommendations. 32183-3Rtdjhbwqk encounter GjvjXX0957-24-89Y89:55:27Telephone encounter NoteTXT1.2.840.194201.1.13.104.2.7 .2.102089|[id number] for patient rftw45614-4NzgtYY020309166Heakkvrj [address] RN[address] GjruYmsqysdxbWcargnsjlKYWO08883504 54RUSJZTPIVYEYFABSBTRQIO1775-79-02 T07:55:271.2.840.075915.1.72.3.15| 1.2.840.532781.1.13.104.2.7.2.7278 [id number] Elizabeth Sotelo RN [facility] 2023-03-26 07:41:47 N4QWFgN2MpX6r89vABOKEBHU3QTVaBwRG9 gYWbgibC9d1nRISbw73BXcF+VRzW3v5141 -08-24T07:41:47 Patient is calling stating her blood pressure is high, she does not know what it is this morning but last night it was 185/89. She states she is under a lot of stress and being treated for an infection on her leg. Nurse notified. 75693-9Uljgftkab encounter RqjaWA4057-30-18J21:45:02Telephone encounter NoteTXT1.2.840.686099.1.13.104.2.7 .2.022158|[id number] for patient vgjm04554-1WrtsQY23889945Dsyao S Hernandez[id number] 32EXYPCNLMOEEFODORIHYCUL0754-29-29 T07:45:021.2.840.121299.1.72.3.15| 1.2.840.815116.1.13.104.2.7.2.7278 [id number] Rashida Marrero [facility] 2023-02-25 09:22:14 POO0QU3jgVi8WvrXJi4S6qc48RUYnRhHXP 10CHCfJgknzUBljMGtu9YcT0+lryB23512 -07-26T09:22:14 JULIO 05/23/22NOV 07/10/23Per encounter on 09/12/21 regarding Glipizide:Please call the patient and inform her of the below medication I have added to her regimen. glipiZIDE XL 5 mg 24 hr tablet 90 tablet 1 09/13/2021 -- Sig: Take 1 tablet by mouth daily with breakfast. Sent to Pharmacy 80874-0Edveexpnw encounter RcytFS5696-25-35M34:24:34Telephone encounter NoteTXT1.2.840.740878.1.13.104.2.7 .2.127830|[id number] for patient [id number] 39RTBFTKOBTTAMYZSXUPJHQM4410-24-58 T09:24:341.2.840.123666.1.72.3.15| 1.2.840.687804.1.13.104.2.7.2.7278 [id number] [facility] 2023-02-24 17:18:05 t9oVavdcJzw0HFsFr2MqdK/eGOPriUsppl AaEqhEceWcuUQ/dlrd0He5Juy5bYfA6277 -07-25T17:18:05 Images from the original note were not included. 95351-4Hgywoigjf encounter GhpcGS4905-48-29B64:18:30Telephone encounter NoteTXT1.2.840.631359.1.13.104.2.7 .2.601971|[id number] for patient ebcj595789366Dxceez[address] QyhdH[id number] 68KEUWHUQGRXBEJQQDRFPIKI5854-31-48 T17:18:301.2.840.207720.1.72.3.15| 1.2.840.988686.1.13.104.2.7.2.7278 [id number] Jayashree Macedo [facility] 2023-02-24 17:16:49 qynkjKqU4ndO/uiDuYODbEzLfbXyRDorMz NibdJShr4B65LY7GCvOPQgn6HiRVoR7316 -07-25T17:16:49 Images from the original note were not included. 59799-1Ysanmmkje encounter EsfxHK4930-36-64A08:17:25Telephone encounter NoteTXT1.2.840.380618.1.13.104.2.7 .2.346308|[id number] for patient [address] DbdwDdlvoxytiQpadcmvidXMCE97700343 49XMCDIKZDXPRSPIPYQGDLPT3346-16-80 T17:17:251.2.840.530151.1.72.3.15| 1.2.840.780474.1.13.104.2.7.2.7278 [id number] [facility] 2023-02-20 15:35:26 beoveJWa7MtJyo/fUWgn3Fc/5Q6PQw18Cx xrnStEOC8ZmXqa/FoLXE4uu3bviGli0365 -07-21T15:35:26 Images from the original note were not included.METFORMIN 850MG TABLETSmetFORMIN 850 mg tablet 270 tablet 0 12/06/2022 No Sig: TAKE 1 TABLET BY MOUTH THREE TIMES DAILY Sent to pharmacy as: metFORMIN 850 mg tablet (GLUCOPHAGE) Class: eRX Order: [id number] Date/Time Signed: 12/06/2022 16:36 E-Prescribing Status: Receipt confirmed by pharmacy (12/06/2022 4:37 PM CDT) Julio:02/11/2023Medication ListAs of 02/11/2023 9:41 AMacetic acid 0.25 % USE DIRECTED FOR WOUND CARE DAILYalbuterol sulfate 90 mcg/actuation INHALE 2 PUFFS BY MOUTH EVERY 6 HOURS NEEDED FOR WHEEZING, SHORTNESS OF BREATH OR BRONCHOSPASMS.alcohol antiseptic pads No dose, route, or frequency recorded.amoxicillin 500 mg Oral BIDaspirin 325 mg Oral DAILYazelastine HCl 137 mcg (0.1 %) 1 [place] Nasal BID, Use in each nostril as directedbenzonatate 100 mg Oral H1RJEDxkywvftsqp 6.25 mg Oral BIDcefepime in iso-osm dextrose 2 gram/100 mL No dose, route, or frequency recorded.cephalexin 500 mg Oral QIDchlorhexidine gluconate4 % Liqd, Topical QDAILYPRN0.12 % Mwsh, SWISH AND SPIT 15 ML BY MOUTH TWICE DAILYcholecalciferol (vitamin D3) 1,250 mcg (50,000 unit) 1 capsule Oral QWEEKLYclonazepam 1 mg Oral TIDcollagenase Clostridium hist. 250 unit/gram APPLY NICKEL THICK TO WOUND DAILYdiclofenac sodium 75 mg Oral BID MEALSempagliflozin 10 mg Oral MZXFJerbfikookmc665 mg Oral G7XGYF090 mg Tab, Weekly for 4 weeksfurosemide 80 mg Oral DAILYgabapentin 300 mg TAKE 1 CAPSULE BY MOUTH FOUR TIMES DAILYglipizide 5 mg Oral QAM WITH BREAKFASTinsulin degludec 200 unit/mL (3 mL) ADMINISTER 62 UNITS UNDER THE SKIN THREE TIMES DAILYketoconazole 2 % Topical QDAILYPRNlatanoprost 0.005 % INSTILL 1 DROP INTO BOTH EYES ONCE DAILYlisinopril 20 mg Oral DAILYloxapine succinate 50 mg No dose, route, or frequency recorded.meloxicam 7.5 mg Oral DAILYmetformin HCl 850 mg TAKE 1 TABLET BY MOUTH THREE TIMES DAILYNov:07/10/2023Refill sent 80719-4Ywexvmcrh encounter HlhbFC8172-86-61P33:40:17Telephone encounter NoteTXT1.2.840.144453.1.13.104.2.7 .2.729570|[id number] for patient [address] 78QXZOYQOVYHGLPOASZMMHDI6836-01-37 T15:40:171.2.840.914890.1.72.3.15| 1.2.840.975734.1.13.104.2.7.2.7278 [id number] [facility] 2023-02-20 07:33:47 nfy3i/Vb7U6hINIzruHM0Rxpz4HXZ6xhqH qyFaknbBe7pZtVCmbLbGS6h79GwwH09667 -07-21T07:33:47 Refill cannot be delegated. Please review and fill if appropriate. Outpatient Medication Detail Disp Refills Start End JOANNE TIZANIDINE 4 mg tablet 270 tablet 0 12/08/2022 No Sig: TAKE 1 TABLET BY MOUTH EVERY 8 HOURS NEEDED Sent to pharmacy as: tiZANidine 4 mg tablet (ZANAFLEX) Class: eRX Order: [id number] Date/Time Signed: 12/08/2022 06:29 E-Prescribing Status: Receipt confirmed by pharmacy (12/08/2022 6:29 AM CDT) Recent VisitsDate Type Provider Dept 02/11/23 Office Visit Jefferson Witt MD [facility] 12/22/22 Office Visit Daniel Castellon FNP [facility] 11/27/22 Office Visit Jefferson Witt MD [facility] 11/12/22 Office Visit Jefferson Witt MD [facility] 10/30/22 Office Visit Rosette Contreras PA [facility] 09/10/22 Office Visit Jefferson Witt MD [facility] 08/07/22 Office Visit Jefferson Witt MD [facility] 06/04/22 Office Visit Rosette Contreras PA [facility] 05/08/22 Office Visit Jefferson Witt MD [facility] 02/05/22 Office Visit Jefferson Witt MD [facility] Showing recent visits within past 540 days with a meds authorizing provider and meeting all other requirementsFuture AppointmentsDate Type Provider Dept 05/14/23 Appointment Jefferson Witt MD [facility] Showing future appointments within next 150 days with a meds authorizing provider and meeting all other requirements 36446-2Zoqyvdtky encounter QrifZB9594-12-18N80:34:34Telephone encounter NoteTXT1.2.840.338033.1.13.104.2.7 .2.837388|[id number] for patient [address] 85FSTXTUSTKZTKYQZMUJLINT0227-26-63 T07:34:341.2.840.919937.1.72.3.15| 1.2.840.410902.1.13.104.2.7.2.7278 [id number] [facility]
[2023-09-22 11:13] LABS: Protime INR 0.98
--- NOTE | 2023-09-22 11:54 | ER ---
Nurse's Notes [facility] Name: Jose Edmond Age: 63 yrs Sex: Female : 1960 Arrival Date: 09/22/2023 Time: 09:48 Bed 19 Private MD: Jefferson Witt S Diagnosis: Diabetic foot wound to left foot;Abscess to left foot;Chronic osteomyelitis to left foot Presentation: 09/22 10:10 Chief complaint: Patient states: Sent from wound care for L foot abscess/infection by ll1 Dr. Ledesma for admission/surgery. Coronavirus screen: Client denies travel out of the [place] in the last 14 days. At this time, the client does not indicate any symptoms associated with coronavirus-19. Ebola Screen: Patient denies travel to an Ebola-affected area in the 21 days before illness onset. Initial Sepsis Screen: Does the patient meet any 2 criteria? No. Patient's initial sepsis screen is negative. Does the patient have a suspected source of infection? Yes: Skin breakdown/wound. Risk Assessment: Do you want to hurt yourself or someone else? Patient reports no desire to harm self or others. Onset of symptoms was September 15, 2023. 10:10 Method Of Arrival: Wheelchair ll1 10:10 Acuity: MAYRA 3 ll1 Historical: - Allergies: 10:10 Sulfa (Sulfonamide Antibiotics); ll1 10:10 TETRACYCLINES; ll1 - PMHx: 10:10 Chronic obstructive lung disease; diabetes mellitus; Hypertensive disorder; ll1 - PSHx: 10:10 back; section; Cholecystectomy; foot sx; hernia; hysterectomy; ll1 - Immunization history:: Adult Immunizations up to date. - Social history:: Smoking status: Patient denies any tobacco usage or history of. - Family history:: not pertinent. Screenin:47 [facility] ED Fall Risk Assessment (Adult) History of falling in the last 3 months, mb9 including since admission No falls in past 3 months (0 pts) Confusion or Disorientation No (0 pts) Intoxicated or Sedated No (0 pts) Impaired Gait No (0 pts) Mobility Assist Device Used No (0 pt) Altered Elimination No (0 pt) Score/Fall Risk Level 0 - 2 = Low Risk Oriented to surroundings, Maintained a safe environment, Educated pt \T\ family on fall prevention, incl call for assistance when getting out of bed. Abuse screen: Denies threats or abuse. Nutritional screening: No deficits noted. Tuberculosis screening: No symptoms or risk factors identified. Assessment: 10:46 General: Appears in no apparent distress. Behavior is calm, cooperative. Pain: Denies mb9 pain. Neuro: Burch Agitation-Sedation Scale (RASS): 0 - Alert and Calm Level of Consciousness is awake, alert, obeys commands, Oriented to person, place, time, situation, Appropriate for age. Cardiovascular: Patient's skin is warm and dry. Respiratory: Airway is patent Respiratory effort is even, unlabored, Respiratory pattern is regular, symmetrical, Breath sounds are clear bilaterally. GI: Abdomen is round distended, Bowel sounds present X 4 quads. Abd is soft and non tender X 4 quads. : No signs and/or symptoms were reported regarding the genitourinary system. EENT: No signs and/or symptoms were reported regarding the EENT system. Derm: Abscess located on left foot is nickel sized, is red, is raised. Musculoskeletal: Range of motion: intact in all extremities. 12:00 Reassessment: No changes from previously documented assessment. Patient and/or family mb9 updated on plan of care and expected duration. Pain level reassessed. Patient is alert, oriented x 3, equal unlabored respirations, skin warm/dry/pink. 13:15 Reassessment: No changes from previously documented assessment. Patient and/or family mb9 updated on plan of care and expected duration. Pain level reassessed. Patient is alert, oriented x 3, equal unlabored respirations, skin warm/dry/pink. 13:40 Reassessment: see [facility] for further charting. mb9 Vital Signs: 10:10 BP 145 / 64; Pulse 81; Resp 18; Temp 97.9; Pulse Ox 96% on R/A; Weight 102.06 kg; ll1 Height 5 ft. 6 in. ; Pain 0/10; 11:33 BP 114 / 61; Pulse 79; Resp 18; Pulse Ox 95% on R/A; Pain 0/10; mb9 13:40 BP 152 / 75; Pulse 84; Resp 18; Pulse Ox 100% on R/A; mb9 10:10 Body Mass Index 36.32 (102.06 kg, 167.64 cm) ll1 10:10 Pain Scale: Adult ll1 11:33 Pain Scale: Adult mb9 ED Course: 09:50 Patient arrived in ED. rg4 09:51 Jefferson Witt MD is Private Physician. rg4 09:56 Hitesh Casas MD is Attending Physician. rt 10:09 Arm band placed on Patient placed in an exam room, on a stretcher. ll1 10:10 Steph Mosqueda, RN is Primary Nurse. mb9 10:12 Triage completed. ll1 10:20 Inserted saline lock: 18 gauge in right antecubital area, using aseptic technique. mb9 10:25 Blood Culture Adult (2) Sent. mb9 10:25 CBC with Diff Sent. mb9 10:25 CMP Sent. mb9 10:25 Protime (+inr) Sent. mb9 10:25 Ptt, Activated Sent. mb9 10:35 Inserted saline lock: 20 gauge in right wrist, using aseptic technique. mb9 10:35 EKG done, by ED staff, reviewed by Hitesh Casas MD. mb9 10:47 Placed in gown. Bed in low position. Call light in reach. Side rails up X 1. Client mb9 placed on continuous cardiac and pulse oximetry monitoring. NIBP monitoring applied. manager monitoring on. 10:47 No provider procedures requiring assistance completed. mb9 10:52 Foot Left 3 View XRAY In Process Unspecified. EDMS 10:53 Notified ED physician of a critical lab result(s). lactate 2.5. mb9 11:52 Mitch Chaudhari MD is Hospitalizing Provider. rt 13:16 Lactate w/ 2H reflex if indic. Sent. mb9 13:40 Patient admitted, IV remains in place. mb9 Administered Medications: 10:35 Drug: Cefepime IVPB 2 grams IVPB at 200 ml/hr once over 30 mins; (mix in NS 100 mL) mb9 Route: IVPB; Rate: 200 ml/hr; Infused Over: 30 mins; Site: right antecubital; 12:06 Follow up: Response: No adverse reaction; IV Status: Completed infusion mb9 10:53 Drug: vancoMYCIN IVPB 1 grams IVPB once over 2 hrs Route: IVPB; Infused Over: 2 hrs; mb9 Site: right wrist; 13:16 Follow up: Response: No adverse reaction; IV Status: Completed infusion mb9 11:05 Drug: NS 0.9% IV 1000 ml IV at 1 bolus Per protocol; 1000 mL bolus Route: IV; Rate: 1 mb9 bolus; Site: right antecubital; 13:16 Follow up: Response: No adverse reaction; IV Status: Completed infusion mb9 Medication: 10:48 VIS not applicable for this client. mb9 Outcome: 11:53 Decision to Hospitalize by Provider. rt 16:58 Admitted to Tele accompanied by tech, via stretcher, with chart, Report called to amy Carlos RN 16:58 Condition: stable 16:58 Instructed on the need for admit, 17:12 Patient left the ED. amy Signatures: Dispatcher [employer] Antonina Arthur4 Riley Castrejon RN RN ll1 Steph Mosqueda RN RN mb9 Hitesh Casas MD MD rt
--- NOTE | 2023-09-22 11:54 | EDPHYS ---
Physician Documentation [facility] Name: Jose Edmond Age: 63 yrs Sex: Female : 1960 Arrival Date: 09/22/2023 Time: 09:48 Bed 19 Private MD: Jefferson Witt S ED Physician Hitesh Casas HPI: 09/22 10:58 This 63 yrs old Female presents to ER via Wheelchair with complaints of Wound Infection.rt 10:58 Patient presents to the ED with chronic foot wound from Dr. Ledesma's office. States rt that he will operate on the patient tomorrow. States that the swelling, abscess is worsened. Denies other acute complaints at this time, denies pain. Symptoms are moderate in severity, no other aggravating or alleviating factors.. Historical: - Allergies: 10:10 Sulfa (Sulfonamide Antibiotics); ll1 10:10 TETRACYCLINES; ll1 - PMHx: 10:10 Chronic obstructive lung disease; diabetes mellitus; Hypertensive disorder; ll1 - PSHx: 10:10 back; section; Cholecystectomy; foot sx; hernia; hysterectomy; ll1 - Immunization history:: Adult Immunizations up to date. - Social history:: Smoking status: Patient denies any tobacco usage or history of. - Family history:: not pertinent. ROS: 10:58 Constitutional: Negative for fever, chills, and weight loss, Cardiovascular: Negative rt for chest pain, palpitations, and edema, Respiratory: Negative for shortness of breath, cough, wheezing, and pleuritic chest pain, Abdomen/GI: Negative for abdominal pain, nausea, vomiting, diarrhea, and constipation, Skin: Negative for injury, rash, and discoloration, Neuro: Negative for headache, weakness, numbness, tingling, and seizure, Psych: Negative for depression, anxiety, suicide ideation, homicidal ideation, and hallucinations, 10:58 MS/extremity: Positive for Swelling, erythema, abscess, Exam: 10:58 Constitutional: This is a well developed, well nourished patient who is awake, alert, rt and in no acute distress. Head/Face: Normocephalic, atraumatic. Chest/axilla: Normal chest wall appearance and motion. Nontender with no deformity. No lesions are appreciated. Cardiovascular: Regular rate and rhythm with a normal S1 and S2. No gallops, murmurs, or rubs. Normal PMI, no JVD. No pulse deficits. Respiratory: Lungs have equal breath sounds bilaterally, clear to auscultation and percussion. No rales, rhonchi or wheezes noted. No increased work of breathing, no retractions or nasal flaring. Abdomen/GI: Soft, non-tender, with normal bowel sounds. No distension or tympany. No guarding or rebound. No evidence of tenderness throughout. Neuro: Awake and alert, GCS 15, oriented to person, place, time, and situation. Cranial nerves II-XII grossly intact. Motor strength 5/5 in all extremities. Sensory grossly intact. Cerebellar exam normal. Normal gait. Psych: Awake, alert, with orientation to person, place and time. Behavior, mood, and affect are within normal limits. 10:58 ECG was reviewed by the Attending Physician. 10:58 Musculoskeletal/extremity: Abscess to the left heel with surrounding cellulitic changes, pulses are intact.. Vital Signs: 10:10 BP 145 / 64; Pulse 81; Resp 18; Temp 97.9; Pulse Ox 96% on R/A; Weight 102.06 kg; ll1 Height 5 ft. 6 in. ; Pain 0/10; 11:33 BP 114 / 61; Pulse 79; Resp 18; Pulse Ox 95% on R/A; Pain 0/10; mb9 13:40 BP 152 / 75; Pulse 84; Resp 18; Pulse Ox 100% on R/A; mb9 10:10 Body Mass Index 36.32 (102.06 kg, 167.64 cm) ll1 10:10 Pain Scale: Adult ll1 11:33 Pain Scale: Adult mb9 MDM: 09:58 Patient medically screened. rt 15:49 Differential diagnosis: Wound infection, abscess. Data reviewed: vital signs, nurses rt notes, lab test result(s), radiologic studies. Consideration of Admission/Observation Patient was admitted/placed on observation. Management of patient was discussed with the following: Visual Manager: Discussed with Dr. Ledesma, recommends n.p.o. after midnight, will operate in the morning.. I considered the following discharge prescriptions or medication management in the emergency department Medications were administered in the Emergency Department. See MAR. Independent interpretation of the following test(s) in the Emergency Department X-Ray: My interpretation is No fracture seen on interpretation of x-ray images. Care significantly affected by the following chronic conditions: Diabetes. Counseling: I had a detailed discussion with the patient and/or guardian regarding the historical points, exam findings, and any diagnostic results supporting the discharge/admit diagnosis, lab results, radiology results, the need for further work-up and treatment in the hospital. 09/22 10:09 Order name: Blood Culture Adult (2) rt 09/22 10:09 Order name: CBC with Diff; Complete Time: 10:56 rt 09/22 10:09 Order name: CMP; Complete Time: 10:56 rt 09/22 10:09 Order name: Lactate w/ 2H reflex if indic.; Complete Time: 10:56 rt 09/22 10:09 Order name: Protime (+inr); Complete Time: 11:16 rt 09/22 10:09 Order name: Ptt, Activated; Complete Time: 11:16 rt 09/22 12:23 Order name: Basic Metabolic Panel EDMS 09/22 12:23 Order name: Basic Metabolic Panel EDMS 09/22 12:23 Order name: CBC with Automated Diff EDMS 09/22 12:23 Order name: CBC with Automated Diff EDMS 09/22 12:23 Order name: Lipid Profile EDMS 09/22 12:23 Order name: Lipid Profile EDMS 09/22 12:23 Order name: Protime (+INR) EDMS 09/22 12:23 Order name: Protime (+INR) EDMS 09/22 12:23 Order name: PTT, Activated Partial Thromb EDMS 09/22 12:23 Order name: PTT, Activated Partial Thromb EDMS 09/22 12:24 Order name: Lactate w/ 2H reflex if indic. EDMS 09/22 13:29 Order name: Lactate Sepsis 2 HR Follow-up EDMS 09/22 10:09 Order name: Foot Left 3 View XRAY; Complete Time: 10:58 rt 09/22 10:09 Order name: EKG; Complete Time: 10: rt 09/22 12:23 Order name: CONS Physician Consult EDMS 09/22 10:09 Order name: Accucheck; Complete Time: 10:25 rt 09/22 10:09 Order name: Cardiac monitoring; Complete Time: 10:25 rt 09/22 10:09 Order name: EKG - Nurse/Tech; Complete Time: 10:25 rt 09/22 10:09 Order name: IV Saline Lock - Large Bore; Complete Time: rt 09/22 10:09 Order name: Labs collected and sent; Complete Time: rt 09/22 10:09 Order name: O2 Per Protocol; Complete Time: rt 09/22 10:09 Order name: O2 Sat Monitoring; Complete Time: rt 09/22 10:09 Order name: Vital Signs; Complete Time: rt 09/22 10:38 Order name: Labs - recollect needed: recollect light blue top, please fill line; bd Complete Time: EC:58 Rate is 69 beats/min. Rhythm is regular, Normal Sinus Rhythm with No ectopy. QRS Lenora rt is Normal. KS interval is normal. QRS interval is normal. QT interval is normal. No Q waves. T waves are Normal. No ST changes noted. Administered Medications: 10:35 Drug: Cefepime IVPB 2 grams IVPB at 200 ml/hr once over 30 mins; (mix in NS 100 mL) mb9 Route: IVPB; Rate: 200 ml/hr; Infused Over: 30 mins; Site: right antecubital; 12:06 Follow up: Response: No adverse reaction; IV Status: Completed infusion mb9 10:53 Drug: vancoMYCIN IVPB 1 grams IVPB once over 2 hrs Route: IVPB; Infused Over: 2 hrs; mb9 Site: right wrist; 13:16 Follow up: Response: No adverse reaction; IV Status: Completed infusion mb9 11:05 Drug: NS 0.9% IV 1000 ml IV at 1 bolus Per protocol; 1000 mL bolus Route: IV; Rate: 1 mb9 bolus; Site: right antecubital; 13:16 Follow up: Response: No adverse reaction; IV Status: Completed infusion mb9 Disposition Summary: 09/22/23 11:53 Hospitalization Ordered Notes: Hospitalization Status: Inpatient Admission rt Provider: Mitch Chaudhari rt Condition: Stable rt Problem: an ongoing problem rt Symptoms: are unchanged rt Bed/Room Type: Standard rt Location: Telemetry/MedSurg (Inpatient)(09/22/23 16:35) bd Room Assignment: 401(09/22/23 16:35) bd Diagnosis - Diabetic foot wound to left foot rt - Abscess to left foot rt - Chronic osteomyelitis to left foot rt Forms: - Medication Reconciliation Form rt - SBAR form rt - Leadership Thank You Letter rt Signatures: Dispatcher [employer] Gabi Hatch Lynsay, RN RN ll1 Steph Mosqueda RN RN mb9 Hitesh Casas MD MD rt Corrections: (The following items were deleted from the chart) 13:31 11:53 Telemetry/MedSurg (Inpatient) rt bd 13:31 11:53 rt bd 16:35 13:31 [facility] ER HOLD bd bd 16:35 13:31 ERHOLD- bd bd
[2023-09-22] MEDS ORDERED: MORPHINE 2 MG/ML SYR IV PRN (12:18)
[2023-09-22] MEDS ORDERED: ONDANSETRON 4 MG/2 ML VIAL IV PRN (12:18)
--- NOTE | 2023-09-22 12:38 | P.HP ---
Certification for Inpatient Patient admitted to: Inpatient With expected LOS: <2 Midnights <Pippa López - Last Filed: 09/23/23 07:55> Patient History - Past Medical/Surgical History Diabetic: Yes -: pancreatitis -: DM -: depression -: anxiety -: Kidney stones -: HTN -: COPD -: glaucoma -: cholecystectomy -: C-sections -: Back -: Hysterectomy Psychosocial/ Personal History: Patient lives at home with family - Family History Father Medical History: Heart disease, Hypertension, Diabetes Mother Medical History: Heart disease, Hypertension Sister Medical History: Cancer - Social History Alcohol use: No CD- Drugs: No Caffeine use: Yes <Mitch Chaudhari - Last Filed: 09/22/23 12:38> Reason for admission: Diabetic foot wound History of Present Illness: 63-year-old female with a past medical history of diabetes, COPD, hypertension, presents to the emergency room for left diabetic foot wound. Was referred to the ER for incision and debridement for chronic osteomyelitis by Dr. eLdesma. Patient reports swelling, abscess of worsening of left foot wound. She denies fever, nausea vomiting diarrhea. Plan to admit for diabetic foot wound, left foot abscess, osteomyelitis of the left foot. To be followed by Dr. Ledesma for surgery. Laboratory evaluation elevated lactic 2 point 5 repeat 2.9, microcytic anemia 10.4 hematocrit 32.3 acute kidney injury BUN 56 creatinine 1.11, lipid panel triglycerides 288, x-ray of the left foot Cont dated 02/27/2023FINDINGS: Significant flattening and sclerosis of the calcaneus inferiorly likely represents chronic osteomyelitis. There is diffuse osteopenia is seen. Calcaneal spurs are present. No acute fracture or dislocation. <Pippa López - Last Filed: 09/23/23 07:55> Allergies Sulfa (Sulfonamide Antibiotics) Allergy (Verified 07/14/22 13:21) Nausea/Vomiting sulfamethoxazole [From Bactrim] Allergy (Verified 07/14/22 13:21) Nausea/Vomiting tetracycline Allergy (Verified 07/14/22 13:21) Nausea/Vomiting trimethoprim [From Bactrim] Allergy (Verified 07/14/22 13:21) Nausea/Vomiting Home Medications: Furosemide 1 tab PO DAILY 07/24/22 Gabapentin 1 tab PO QID 07/24/22 Glipizide [Glipizide Xl] 1 tab PO DAILY 07/24/22 Hydrocodone Bit/Acetaminophen [Hydrocodon-Acetaminoph 7.5-325] 1 tab PO Q6H PRN 07/24/22 Metformin HCl 1 tab PO TID 07/24/22 Spironolactone 1 tab PO BID 07/24/22 Venlafaxine HCl [Venlafaxine HCl ER] 1 tab PO DAILY 07/24/22 clonazePAM [Klonopin] 1 mg PO TID 07/24/22 Loxapine [Adasuve] 100 mg PO BEDTIME 08/14/22 Tizanidine [Zanaflex*] 4 mg PO PRN 08/14/22 carvediloL [Coreg*] 6.25 mg PO BID #60 tab 08/29/22 Amlodipine [Norvasc*] 10 mg PO DAILY 09/22/23 Lisinopril [Zestril] 40 mg PO DAILY 09/22/23 Review of Systems per HPI <Pippa López - Last Filed: 09/23/23 07:55> Physical Examination - Studies Laboratory Data (last 24 hrs) 09/22/23 09/22/23 09/22/23 10:54 10:22 10:22 WBC 7.60 Hgb 10.4 L Hct 32.3 L Plt Count 275 PT 10.8 INR 0.98 APTT 31.6 Sodium 135 L Potassium 4.3 BUN 18 Creatinine 1.11 H Glucose 326 H Total Bilirubin 0.4 AST 12 L ALT 23 Alkaline Phosphatase 72 <Mitch Chaudhari - Last Filed: 09/22/23 12:38> - Physical Exam General: Alert, In no apparent distress, Oriented x3 HEENT: Atraumatic, Normocephalic Neck: Supple, 2+ carotid pulse no bruit Respiratory: Clear to auscultation bilaterally, Normal air movement Cardiovascular: No edema, Normal pulses Capillary refill: <2 Seconds Gastrointestinal: Normal bowel sounds, Soft and benign Musculoskeletal: Other (Left lower extremity foot pain, edema) Integumentary: Other (Left heel infected diabetic ulcer with abscess, draining, covered with dry dressing) Neurological: Normal speech, Normal strength at 5/5 x4 extr - Studies Laboratory Data (last 24 hrs) 09/22/23 09/22/23 09/22/23 10:54 10:22 10:22 WBC 7.60 Hgb 10.4 L Hct 32.3 L Plt Count 275 PT 10.8 INR 0.98 APTT 31.6 Sodium 135 L Potassium 4.3 BUN 18 Creatinine 1.11 H Glucose 326 H Total Bilirubin 0.4 AST 12 L ALT 23 Alkaline Phosphatase 72 <Pippa López - Last Filed: 09/23/23 07:55> Assessment & Plan - Advance Directives Does patient have a Living Will: Yes Does patient have a Durable POA for Healthcare: No <Mitch Chaudhari - Last Filed: 09/22/23 12:38> - Plan Assessment plan Osteomyelitis of left foot Surgery consult Dr. Ledesma follow-up in wound clinic IV antibiotics, PICC line placement, Infectious disease consult Diabetes type 2 Hypertension Accu-Cheks, sliding scale insulin Resume home meds COPD O2 2 L keep sats greater than 90%, as needed nebs -Continue neb treatment with albuterol\Atrovent, steroids and O2 therapy. -DVT PPX-SCDs -Code Status- Full code Discharge Plan: Home Plan to discharge in: 48 Hours - Advance Directives Does patient have a Living Will: No Does patient have a Durable POA for Healthcare: No Discharge Plan: Home - Code Status/Comfort Care Code Status: Full Code Critical Care: No Time Spent Managing PTS Care (In Minutes): 55 <Pippa López - Last Filed: 09/23/23 07:55>
[2023-09-22] MEDS ORDERED: VANCOMYCIN 1 GM in NA CHLORIDE 0.9% 250 ML IVPB SCH (13:00)
[2023-09-22] MEDS: Levofloxacin500mg IV 500 MG/100 ML BAG IV SCH (13:00)
[2023-09-22] MEDS: NA CHLORIDE 0.9% 1,000 ML IV SCH (13:00)
[2023-09-22] MEDS: VANCOMYCIN 1.5 GM in NA CHLORIDE 0.9% 500 ML IVPB ONE (13:00)
[2023-09-22] MEDS ORDERED: Levofloxacin500mg IV 500 MG/100 ML BAG IV ONE (13:42)
[2023-09-23 06:55] LABS: Hematocrit 25.9 % (36.0-45.0); Lymphocytes % 19.4 % (15.3-44.8); MCV 73.6 fL (80-100); MPV 8.8 fL (7.6-11.3); Platelets 219 thou/uL (152-406); RBC Red Blood Cell Count 3.52 M/uL (3.86-4.86)
[2023-09-23 06:59] LABS: Protime INR 1.07
[2023-09-23 07:08] LABS: Potassium 4.1 mEq/L (3.5-5.1)
--- NOTE | 2023-09-23 07:08 | P.PN ---
Subjective Date of Service: 09/23/23 Incision and debridement by Dr. Nunez of diabetic foot wound, left foot abscess, osteomyelitis of the left foot. Pain control with as needed analgesics - Physical Exam General: Alert, In no apparent distress, Oriented x3 HEENT: Atraumatic, Normocephalic Neck: Supple, 2+ carotid pulse no bruit Respiratory: Clear to auscultation bilaterally, Normal air movement Cardiovascular: No edema, Normal pulses Capillary refill: <2 Seconds Gastrointestinal: Normal bowel sounds, Soft and benign Musculoskeletal: Other (Left lower extremity foot pain) Integumentary: Other (Left lower extremity surgical dry dressing) Neurological: Normal speech, Normal strength at 5/5 x4 extr Lymphatics: No axilla or inguinal lymphadenopathy Review of Systems per HPI Physical Examination - Vital Signs Temperature: 97 F Blood Pressure: 119/66 Pulse: 89 Respirations: 20 Pulse Ox (%): 92 - Physical Exam General: Alert, In no apparent distress, Oriented x3 HEENT: Atraumatic, Normocephalic Neck: Supple, 2+ carotid pulse no bruit Respiratory: Clear to auscultation bilaterally, Normal air movement Cardiovascular: No edema, Normal pulses Capillary refill: <2 Seconds Gastrointestinal: Normal bowel sounds, Soft and benign Musculoskeletal: Other (Left lower extremity foot pain) Integumentary: Other (Left lower extremity heel abscess, dry dressing) Neurological: Normal speech, Normal strength at 5/5 x4 extr Lymphatics: No axilla or inguinal lymphadenopathy - Studies Laboratory Data (last 24 hrs) 09/22/23 09/22/23 09/22/23 10:54 10:22 10:22 WBC 7.60 Hgb 10.4 L Hct 32.3 L Plt Count 275 PT 10.8 INR 0.98 APTT 31.6 Sodium 135 L Potassium 4.3 BUN 18 Creatinine 1.11 H Glucose 326 H Total Bilirubin 0.4 AST 12 L ALT 23 Alkaline Phosphatase 72 Assessment And Plan - Plan Assessment plan Osteomyelitis of left foot Surgery consult Dr. Ledesma follow-up in wound clinic IV antibiotics, vancomycin, per Dr. Ledesma Infectious disease consult Blood and wound cultures Status postdebridement 09/23 Dr. Ledesma left lower extremity Wound care after discharge Order for PICC line placement Diabetes type 2 Hypertension Accu-Cheks, sliding scale insulin Resume home meds COPD O2 2 L keep sats greater than 90%, as needed nebs -Continue neb treatment with albuterol\Atrovent, steroids and O2 therapy. -DVT PPX-SCDs -Code Status- Full code Discharge Plan: Home Plan to discharge in: 48 Hours - Advance Directives Does patient have a Living Will: No Does patient have a Durable POA for Healthcare: No Discharge Plan: Home Plan to discharge in: 48 Hours - Code Status/Comfort Care Code Status: Full Code Time Spent Managing PTS Care (In Minutes): 35
--- NOTE | 2023-09-23 09:14 | P.CNS ---
Date of Consult: 09/23/23 Reason for Consult: osteomyelitis Chief Complaint: Diabetic foot wound History of Present Illness: Patient is a 63-year-old female with a past medical history of diabetes mellitus type 2, COPD, hypertension, chronic osteomyelitis who presented to the ED for i ncision and debridement by Dr. Ledesma. Patient reported swellin, abscess and worsening wound of left foot. Blood and wound cultures obtained. Patient started on empiric antibiotics. Infectious disease was consulted. Allergies Sulfa (Sulfonamide Antibiotics) Allergy (Verified 07/14/22 13:21) Nausea/Vomiting sulfamethoxazole [From Bactrim] Allergy (Verified 07/14/22 13:21) Nausea/Vomiting tetracycline Allergy (Verified 07/14/22 13:21) Nausea/Vomiting trimethoprim [From Bactrim] Allergy (Verified 07/14/22 13:21) Nausea/Vomiting Home Medications: Furosemide 1 tab PO DAILY 07/24/22 Gabapentin 1 tab PO QID 07/24/22 Glipizide [Glipizide Xl] 1 tab PO DAILY 07/24/22 Hydrocodone Bit/Acetaminophen [Hydrocodon-Acetaminoph 7.5-325] 1 tab PO Q6H PRN 07/24/22 Metformin HCl 1 tab PO TID 07/24/22 Spironolactone 1 tab PO BID 07/24/22 Venlafaxine HCl [Venlafaxine HCl ER] 1 tab PO DAILY 07/24/22 clonazePAM [Klonopin] 1 mg PO TID 07/24/22 Loxapine [Adasuve] 100 mg PO BEDTIME 08/14/22 Tizanidine [Zanaflex*] 4 mg PO PRN 08/14/22 carvediloL [Coreg*] 6.25 mg PO BID #60 tab 08/29/22 Amlodipine [Norvasc*] 10 mg PO DAILY 09/22/23 Lisinopril [Zestril] 40 mg PO DAILY 09/22/23 - Past Medical/Surgical History Diabetic: Yes -: pancreatitis -: DM -: depression -: anxiety -: Kidney stones -: HTN -: COPD -: glaucoma -: cholecystectomy -: C-sections -: Back -: Hysterectomy Psychosocial/ Personal History: Patient lives at home with family - Family History Father Medical History: Heart disease, Hypertension, Diabetes Mother Medical History: Heart disease, Hypertension Sister Medical History: Cancer - Social History Smoking Status: Current some day smoker Alcohol use: No CD- Drugs: No Caffeine use: Yes Physical Examination Temp Pulse Resp BP Pulse Ox 97 F 89 20 119/66 92 09/23/23 07:56 09/23/23 07:56 09/23/23 07:56 09/23/23 07:56 09/23/23 07:56 Laboratory Data - Reviewed Microbiology Data - Reviewed Imagings Data: - Reviewed Conclusions/Impression: Problem List Diabetic Foot Infection of left foot Chronic Osteomyelitis COPD Hypertension Diabetes Mellitus type II Diabetic Foot Infection of left foot Chronic Osteomyelitis -Wound culture 09/22: Pending -Blood cultures 09/22: pending -Currently on Levaquin and vancomycin IV (started 09/22) -Scheduled for incision and debridement today Lactic acid 2.9 No leukocytosis Afebrile Recommendations - Continue current antibiotics for now. Will follow up with blood and wound culture results and adjust antibiotics as appropriate. - Scheduled for debridement today of wound - Wound care per surgery/wound care team - Monitor WBC and fever trends Case discussed with Nancy Dorsey
[2023-09-23] MEDS ORDERED: KETOROLAC 30 MG/ML INJ ONE ×2 (10:25→12:30)
[2023-09-23] MEDS ORDERED: MIDAZOLAM HCL 2 MG/2 ML INJ ONE (10:25)
[2023-09-23] MEDS ORDERED: ONDANSETRON 4 MG/2 ML VIAL ONE (10:25)
[2023-09-23] MEDS ORDERED: dexAMETHasone 4 MG/ML VIAL ONE (10:25)
[2023-09-23] MEDS ORDERED: propofoL 200 MG/20 ML VIAL IV ONE (10:25)
[2023-09-23] MEDS ORDERED: FENTANYL CITR 100 MCG/2 ML ONE (10:25)
[2023-09-23] MEDS ORDERED: LIDOCAINE 2% MPF 5 ML VIAL ONE (10:25)
[2023-09-23] MEDS: ROPIVACAINE HCL 20 ML ONE (10:45)
--- NOTE | 2023-09-23 13:51 | P.BOP ---
Preoperative diagnosis: left foot infected diabetic ulcer /abscess Postoperative diagnosis: same possible osteomyelitis Primary procedure: Excisional subQ debridement left foot infected diabetic ulcer [id number] Estimated blood loss: <10cc Specimen: pus Findings: pus Anesthesia: MAC Complications: None Transferred to: Recovery Room Condition: Good
[2023-09-23] MEDS: VANCOMYCIN 1.75 GM in NA CHLORIDE 0.9% 500 ML IVPB SCH (14:25)
[2023-09-23] MEDS: Levofloxacin 750mg IV 750 MG/150 ML BAG IV SCH (14:26)
[2023-09-23] MEDS ORDERED: HYDROCODONE/APAP 7.5/325 MG TAB PO PRN (16:47)
[2023-09-23] MEDS ORDERED: GABAPENTIN 300 MG CAP PO SCH (17:00)
[2023-09-23] MEDS ORDERED: clonazePAM 1 MG TAB PO SCH (21:00)
[2023-09-23] MEDS: LOXAPINE PO SCH (21:00)
[2023-09-23] MEDS ORDERED: carvediloL 6.25 MG TAB PO SCH (21:00)
[2023-09-23] MEDS ORDERED: SPIRONOLACTONE 25 MG TABLET PO SCH (21:00)
[2023-09-23] MEDS: Mupirocin NASAL 2 APPL/1 GM TUBE NAS SCH (21:12)
[2023-09-23] MEDS: ACETAMINOPHEN 500 MG TAB PO PRN (22:50)
[2023-09-23] MEDS: HYDROCODONE/APAP 7.5/325 MG TAB PO PRN (23:31)
--- NOTE | 2023-09-24 07:40 | P.PN ---
Subjective Date of Service: 09/24/23 Chief Complaint: Diabetic foot wound Incision and debridement by Dr. Nunez of diabetic foot wound, left foot abscess, osteomyelitis of the left foot. Pain control with as needed analgesics - Physical Exam General: Alert, In no apparent distress, Oriented x3 HEENT: Atraumatic, Normocephalic Neck: Supple, 2+ carotid pulse no bruit Respiratory: Clear to auscultation bilaterally, Normal air movement Cardiovascular: No edema, Normal pulses Capillary refill: <2 Seconds Gastrointestinal: Normal bowel sounds, Soft and benign Musculoskeletal: Other (Left lower extremity foot pain) Integumentary: Other (Left lower extremity surgical dry dressing) Neurological: Normal speech, Normal strength at 5/5 x4 extr Lymphatics: No axilla or inguinal lymphadenopathy Physical Examination - Vital Signs Temperature: 97.3 F Blood Pressure: 116/56 Pulse: 84 Respirations: 18 Pulse Ox (%): 96 Assessment And Plan - Plan Assessment plan Osteomyelitis of left foot Surgery consult Dr. Ledesma follow-up in wound clinic IV antibiotics, vancomycin, per Dr. Ledesma Infectious disease consult Blood and wound cultures Status postdebridement 09/23 Dr. Ledesma left lower extremity Wound care after discharge Order for PICC line placement Infectious disease following for long-term care IV antibiotics Plan for PCP to manage lab work on with weekly antibiotics application services manager to consult for home health Diabetes type 2 Hypertension Accu-Cheks, sliding scale insulin Resume home meds COPD O2 2 L keep sats greater than 90%, as needed nebs -Continue neb treatment with albuterol\Atrovent, steroids and O2 therapy. -DVT PPX-SCDs -Code Status- Full code Discharge Plan: Home Plan to discharge in: 48 Hours - Advance Directives Does patient have a Living Will: No Does patient have a Durable POA for Healthcare: No Discharge Plan: Home - Code Status/Comfort Care Code Status: Full Code Critical Care: No Time Spent Managing PTS Care (In Minutes): 35
--- NOTE | 2023-09-24 08:43 | P.PN ---
Date of Service: 09/24/23 Chief Complaint: Diabetic foot wound Subjective: S/p debridement of left foot infected diabetic ulcer /abscess by Dr. Ledesma on 09/23 In no apparent distress. No acute events overnight. + intermittent left foot pain. Physical Examination Temp Pulse Resp BP Pulse Ox 97.3 F 84 18 116/56 L 96 09/24/23 07:40 09/24/23 07:40 09/24/23 07:40 09/24/23 07:40 09/24/23 07:40 general: In no apparent distress HEENT: normocephalic, atraumatic Resp: Clear to auscultation bilaterally. CV: Regular rate and rhythm. Abd: Normoactive bowel sounds. Soft, nontender. Skin: Left diabetic foot ulcer s/p debridement dressing clean dry and intact. Laboratory Data - Reviewed Microbiology Data - Reviewed Imagings Data: - Reviewed Medication List: Reviewed Assessment and Plan Problem List Diabetic Foot Infection of left foot Chronic Osteomyelitis COPD Hypertension Diabetes Mellitus type II Diabetic Foot Infection of left foot Osteomyelitis left foot - XR Left Foot 09/22: Significant flattening and sclerosis of the calcaneus inferiorly likely represents chronic osteomyelitis. There is diffuse osteopenia is seen. Calcaneal spurs are present. No acute fracture or dislocation" -Wound culture 09/22: 2+ coagulase positive staph -Blood cultures 09/22: no growth to date -Currently on Levaquin and vancomycin IV (started 09/22) -S/p debridement of left foot infected diabetic ulcer /abscess by Dr. Ledesma on 09/23 Findings of possible osteomyelitis. Lactic acid 2.9 No leukocytosis Afebrile Recommendations - Osteomyelitis: Recommend 6 weeks of IV antibiotic therapy - Continue Levaquin and Vancomycin for now. - Will follow up with blood and wound culture results and adjust antibiotics as appropriate. - Wound care per surgery/wound care team - Monitor WBC and fever trends - Pressure offloading measures on left foot Case discussed with Nancy Dorsey
[2023-09-24] MEDS ORDERED: HOME MED 1 EA UNK (Venlafaxine Hcl [Venlafaxine Hcl Er] 150 MG Tab.Er.24) PO SCH (09:00)
[2023-09-24] MEDS ORDERED: HOME MED 1 EA UNK (Furosemide [Furosemide] 80 MG Tablet) PO SCH (09:00)
[2023-09-24] MEDS ORDERED: HOME MED 1 EA UNK (Lisinopril [Zestril] 40 MG Tablet) PO SCH (09:00)
[2023-09-24] MEDS ORDERED: AMLODIPINE 10 MG TAB PO SCH (09:00)
[2023-09-24] MEDS ORDERED: METOPROLOL TARTRATE 5 MG/5 ML INJ IV PRN (12:43)
[2023-09-24] MEDS: METOPROLOL TARTRATE 5 MG/5 ML INJ IV STA (12:56)
[2023-09-24 13:06] VITALS: BMI 36.1
--- NOTE | 2023-09-24 14:49 | P.DS ---
Admission Date: 09/22/23 Discharge Date: 09/25/23 Disposition: [place] HOME/HOME HEALTH CARE Discharge Condition: FAIR Reason for Admission: Diabetic foot wound Brief History of Present Illness: 63-year-old female with a past medical history of diabetes, COPD, hypertension, presents to the emergency room for left diabetic foot wound. Was referred to the ER for incision and debridement for chronic osteomyelitis by Dr. Ledesma. Patient reports swelling, abscess of worsening of left foot wound. She denies fever, nausea vomiting diarrhea. Plan to admit for diabetic foot wound, left foot abscess, osteomyelitis of the left foot. To be followed by Dr. Ledesma for surgery. Laboratory evaluation elevated lactic 2 point 5 repeat 2.9, microcytic anemia 10.4 hematocrit 32.3 acute kidney injury BUN 56 creatinine 1.11, lipid panel triglycerides 288, x-ray of the left foot Cont dated 02/27/2023FINDINGS: Significant flattening and sclerosis of the calcaneus inferiorly likely represents chronic osteomyelitis. There is diffuse osteopenia is seen. Calcaneal spurs are present. No acute fracture or dislocation. - Physical Exam General: Alert, In no apparent distress, Oriented x3 HEENT: Atraumatic, Normocephalic Neck: Supple, 2+ carotid pulse no bruit Respiratory: Clear to auscultation bilaterally, Normal air movement Cardiovascular: No edema, Normal pulses Capillary refill: <2 Seconds Gastrointestinal: Normal bowel sounds, Soft and benign Musculoskeletal: Other (Left lower extremity foot pain, edema) Integumentary: Other (Left heel infected diabetic ulcer with abscess, draining, covered with dry dressing) Neurological: Normal speech, Normal strength at 5/5 x4 extr Hospital Course: 63 year-old female patient presented with a past medical history of diabetes, COPD, hypertension, presents to the emergency room for left diabetic foot wound. Was noted to have osteomyelitis of the left foot. Condition improved with surgical incision and debridement, as needed analgesics, IV antibiotics. Patient tolerating diet, stable for discharge to home with follow-up appointment with primary care physician, follow-up with surgery. Discharge home with PICC line with IV antibiotics, follow-up labs with primary care physician PROBLEM: Left lower extremity osteomyelitis Diabetes type 2 Hypertension COPD stable Follow-up with Dr. Ledesma for surgery follow-up Dr. Sifuentes infectious disease for laboratory biweekly monitoring CBC, BMP, Vanco trough every Thursday and XR Left Foot 09/22: Significant flattening and sclerosis of the calcaneus inferiorly likely represents chronic osteomyelitis. There is diffuse osteopenia is seen. Calcaneal spurs are present. No acute fracture or dislocation" Wound culture 09/22: 2+ coagulase positive staph Blood cultures 09/22: no growth to date Currently on Levaquin and vancomycin IV (started 09/22) S/p debridement of left foot infected diabetic ulcer /abscess by Dr. Ledesma on 09/23 Findings of possible osteomyelitis. New prescription for Levaquin 750 p.o. daily for 42 days, with lactobacillus 1 p.o. twice daily to prevent C. difficile infection IV Levaquin twice daily per infectious disease Continue home medicines as previously prescribed for hypertension, diabetes, COPD Follow-up with Dr. Ledesma in 1 to 2 weeks while office for appointment wound care monitor GOAL: Clear understanding of disease process INSTRUCTIONS: Physician Discharge Instructions: -DC IV and DC home -Follow-up with PCP in 1 to 2 weeks -Please call Dr. Chaudhari at [phone] if any questions regarding hospital stay -Please call nursing station at [phone] if any nursing or medication questions -Return to the emergency room if symptoms worsen Diet: ADA, low sodium Activity: Fall precautions [facility], that the pt will be accepted for home admission. IV antibiotics. Dr. Jefferson Massey's office ([phone]), patient's primary care physician to follow weekly labs on IV antibiotics Vital Signs/Physical Exam: Temp Pulse Resp BP Pulse Ox 98.2 F 97 H 16 177/66 H 95 09/24/23 12:00 09/24/23 12:56 09/24/23 12:00 09/24/23 12:56 09/24/23 12:00 Laboratory Data at Discharge: WBC 5.30 thou/uL (4.3-10.9) 09/23/23 06:05 Hgb 8.3 g/dL (12.0-15.0) L D 09/23/23 06:05 Hct 25.9 % (36.0-45.0) L 09/23/23 06:05 Plt Count 219 thou/uL (152-406) 09/23/23 06:05 PT 11.7 SECONDS (9.5-12.5) 09/23/23 06:05 INR 1.07 09/23/23 06:05 APTT 29.4 SECONDS (24.3-36.9) 09/23/23 06:05 Sodium 141 mEq/L (136-145) D 09/23/23 06:05 Potassium 4.1 mEq/L (3.5-5.1) 09/23/23 06:05 BUN 16 mg/dL (7-18) 09/23/23 06:05 Creatinine 0.91 mg/dL (0.55-1.02) 09/23/23 06:05 Glucose 175 mg/dL (74-106) H 09/23/23 06:05 Total Bilirubin 0.4 mg/dL (0.2-1.0) 09/22/23 10:22 AST 12 U/L (15-37) L 09/22/23 10:22 ALT 23 U/L (13-56) 09/22/23 10:22 Alkaline Phosphatase 72 U/L (45-117) 09/22/23 10:22 Triglycerides 281 mg/dL (<150) H 09/23/23 06:05 Cholesterol 140 mg/dL (<200) 09/23/23 06:05 HDL Cholesterol 24 mg/dL (40-60) L 09/23/23 06:05 Cholesterol/HDL Ratio 5.83 09/23/23 06:05 Home Medications: Furosemide 1 tab PO DAILY 07/24/22 Gabapentin 1 tab PO QID 07/24/22 Glipizide [Glipizide Xl] 1 tab PO DAILY 07/24/22 Hydrocodone Bit/Acetaminophen [Hydrocodon-Acetaminoph 7.5-325] 1 tab PO Q6H PRN 07/24/22 Metformin HCl 1 tab PO TID 07/24/22 Spironolactone 1 tab PO BID 07/24/22 Venlafaxine HCl [Venlafaxine HCl ER] 1 tab PO DAILY 07/24/22 clonazePAM [Klonopin] 1 mg PO TID 07/24/22 Loxapine [Adasuve] 100 mg PO BEDTIME 08/14/22 Tizanidine [Zanaflex*] 4 mg PO PRN 08/14/22 carvediloL [Coreg*] 6.25 mg PO BID #60 tab 08/29/22 Amlodipine [Norvasc*] 10 mg PO DAILY 09/22/23 Lisinopril [Zestril] 40 mg PO DAILY 09/22/23 Lacto19/Bifido/L.lactis/P.acid [Jarro-Dophilus Eps 25B Cell Cp] 1 each PO BID 60 Days #60 mg 09/25/23 Levofloxacin [Levaquin] 750 mg PO DAILY 42 Days #42 mg 09/25/23 New Medications: Lacto19/Bifido/L.lactis/P.acid [Jarro-Dophilus Eps 25B Cell Cp] 1 each PO BID 60 Days #60 mg Levofloxacin [Levaquin] 750 mg PO DAILY 42 Days #42 mg Physician Discharge Instructions: Home Health arranged for half-way: [facility] [place] P:[phone] F:[phone] Home IV antibiotics arranged with: [id number] [facility] [address], [place] [address] P/ Ci[place]: [phone] F Followup: Jefferson Witt MD [Primary Care Provider] - Pete Ann MD [ACTIVE - CAN ADMIT] - Time spent managing pt's care (in minutes): 55
--- NOTE | 2023-09-24 15:25 | RAD REPORT ---
EXAM DESCRIPTION: [facility] Single [facility]09/24/2023 2:37 pm CLINICAL HISTORY: PICC placement COMPARISON: Chest Single View dated 09/05/2022; Chest Single View dated 08/13/2022; Chest Pa And Lat (2 Views) dated 08/03/2022; Chest Single View dated 07/29/2022 TECHNIQUE: Portable AP view of the chest. FINDINGS: Left arm PICC in place, with catheter tip projecting at the distal SVC level. The lungs ar e clear. No pneumothorax or effusion. The cardiomediastinal contours are unremarkable. IMPRESSION: No acute cardiopulmonary process.
--- NOTE | 2023-09-24 16:14 | EKG ---
Test Date: 2023-09-22 Test Time: 10:37:05 Aviation Medicine Specialist: MB MEASUREMENT RESULTS: Intervals: Rate: 69 SC: 192 QRSD: 94 QT: 392 QTc: 420 [place]: P: 61 SC: 192 QRS: 49 T: 78 INTERPRETIVE STATEMENTS: Normal sinus rhythm Normal ECG Compared to ECG 08/13/2022 15:21:21 ST (T wave) deviation no longer present Possible ischemia no longer present Electronically Signed On 09-24-23 16:07:04 PROSTHETIC DENTIST by Hola Cabrera
[2023-09-25 06:11] LABS: Absolute Lymphocytes (CBC) 1.8 K/uL (0.7-4.9); Hematocrit 27.6 % (36.0-45.0); Lymphocytes % 32.7 % (15.3-44.8); MCV 72.9 fL (80-100); MPV 8.4 fL (7.6-11.3); Platelets 224 thou/uL (152-406); RBC Red Blood Cell Count 3.78 M/uL (3.86-4.86)
[2023-09-25 06:29] LABS: Magnesium 1.6 mg/dL (1.6-2.4); Potassium 3.9 mEq/L (3.5-5.1)
[2023-09-25] MEDS ORDERED: TIZANIDINE 4 MG TABLET PO PRN (08:00)
[2023-09-25 08:20] VITALS: BP 166/77; TEMP 98.9
--- NOTE | 2023-09-25 09:35 | P.PN ---
Date of Service: 09/25/23 Chief Complaint: Diabetic foot wound Subjective: In no apparent distress. No acute events overnight. Denies any new or worsening complaints at this time. Physical Examination Temp Pulse Resp BP Pulse Ox 98.9 F 86 20 166/77 H 95 09/25/23 08:00 09/25/23 08:00 09/25/23 08:00 09/25/23 08:00 09/25/23 08:00 general: In no apparent distress HEENT: normocephalic, atraumatic Resp: Clear to auscultation bilaterally. CV: Regular rate and rhythm. Abd: Normoactive bowel sounds. Soft, nontender. Skin: Left diabetic foot ulcer s/p debridement dressing clean dry and intact. Laboratory Data - Reviewed Microbiology Data - Reviewed Imagings Data: - Reviewed Medication List: Reviewed Assessment and Plan Problem List Diabetic Foot Infection of left foot Chronic Osteomyelitis COPD Hypertension Diabetes Mellitus type II Diabetic Foot Infection of left foot Osteomyelitis left foot - XR Left Foot 09/22: Significant flattening and sclerosis of the calcaneus inferiorly likely represents chronic osteomyelitis. There is diffuse osteopenia is seen. Calcaneal spurs are present. No acute fracture or dislocation" -Wound culture 09/22: MSSA -Blood cultures 09/22: no growth to date -Currently on Levaquin and vancomycin IV (started 09/22) -S/p debridement of left foot infected diabetic ulcer /abscess by Dr. Ledesma on 09/23 Findings of possible osteomyelitis. Lactic acid 2.9 No leukocytosis Afebrile Recommendations - Osteomyelitis: Recommend 6 weeks of IV antibiotic therapy - Continue with Vancomycin IV and Levaquin PO. - Patient to be discharged home with home health. Recommend CBC, BMP and vanco trough twice weekly (thursday and ). - Wound care per surgery/wound care team - Monitor WBC and fever trends - Pressure offloading measures on left foot Case discussed with Nancy Dorsey
[2023-09-25 09:59] VITALS: O2SAT 94
--- NOTE | 2023-09-26 01:09 | OP ---
Date of Procedure: 09/25/2023 Surgeon: Minh Ledesma MD Preoperative Diagnosis: Left foot infected diabetic ulcer and abscess. Preoperative Diagnoses: Left foot infected diabetic ulcer and abscess, osteomyelitis. Procedure: Excision of the subcutaneous debridement, left foot infected diabetic ulcer, 6 x 4 x 2 cm . Estimated Blood Loss: Less than 10 mL. Specimen: Pus. Anesthesia: MAC plus local. Complications: None. Indications: This is the case of Ms. Edmond who survived an amputation of her foot about a year ag o with intensive wound care and [facility] care and patient compliance, but recently, she s topped walking a lot and developed this ulcer on the foot that developed into cellulitis. She is try ing to treat this as an outpatient with antibiotics, but this did not work. Few days ago, we noticed the patient to have redness, a cavity inside, and abscess and I advised the patient to be admitted t o the hospital, IV antibiotics, rule out osteomyelitis, and a surgical debridement. The benefits, al ternatives, and risks of that fully explained to the patient which include, but not limited to infect ion, bleeding, damage to adjacent structures, anesthesia complication, recurrence, PA and even . She also understands this may not relieve any symptoms, she might need more than one surgical inter vention. She understands the importance of diabetic shoes, the importance of diabetes control. She did it once and with all that effort, it paid off, but unfortunately it is continuous care. Description Of Procedure: The patient was brought to the operating room, placed in supine position, anesthesia was done without complication. Foot was prepped and draped in a sterile fashion. Local a nesthesia was applied followed by sharp incision of the skin. When we went there, we noticed the cav ity present and have to be debrided all the way down to calcaneus bone, we cannot even pal helms the bone. This pus, which is at least 10 mL of pus coming directly from the base of the calcane us, on touching the bone suggesting osteomyelitis. The area was irrigated, hemostasis was obtained, and then the area was packed with wet-to-dry dressing. The patient tolerated the procedure well, pat ient was sent to the recovery in stable condition. KEY/QAMAR Voice ID: [id number] Report ID: [id number]
== END 2023-09-25 11:33 | disposition home health service (06) | DRG 623 ==
LOC: ER 09:48 → ERHOLD 12:18 → 4TH 16:58
PROVIDERS: ADMIT Hospitalist; ATTEND Hospitalist
PROC: 02HV33Z Insertion of Infusion Device into Superior Vena Cava, Percutaneous Approach (ICD-10-PCS; 2023-09-24)
PROC: 0JBR0ZZ Excision of Left Foot Subcutaneous Tissue and Fascia, Open Approach (ICD-10-PCS; principal; 2023-09-25)
DX: E11.69 Type 2 diabetes mellitus with other specified complication (principal); L02.612 Cutaneous abscess of left foot; M86.672 Other chronic osteomyelitis, left ankle and foot; L97.429 Non-pressure chronic ulcer of left heel and midfoot with unspecified severity; N17.9 Acute kidney failure, unspecified; E11.621 Type 2 diabetes mellitus with foot ulcer; L97.529 Non-pressure chronic ulcer of other part of left foot with unspecified severity; D50.9 Iron deficiency anemia, unspecified; I10 Essential (primary) hypertension; J44.9 Chronic obstructive pulmonary disease, unspecified; B95.61 Methicillin susceptible Staphylococcus aureus infection as the cause of diseases classified elsewhere; F17.200 Nicotine dependence, unspecified, uncomplicated; Z88.1 Allergy status to other antibiotic agents; Z88.2 Allergy status to sulfonamides; Z90.49 Acquired absence of other specified parts of digestive tract; Z79.84 Long term (current) use of oral hypoglycemic drugs; Z79.02 Long term (current) use of antithrombotics/antiplatelets; Z79.899 Other long term (current) drug therapy; Z90.710 Acquired absence of both cervix and uterus
CPT/HCPCS: 11042; 36415; 71045; 80048; 80053; 80061; 80202; 82947; 83605; 83735; 85025; 85610; 85730; 87040; 87070; 87075; 87077; 87186; 87205; 88304; 93005; 99213; 99285; J0692; J1100; J2001; J2250; J2405; J2704; J3010; J7030; J7040; J7050

== ENCOUNTER 2024-05-12 09:12 | Inpatient (IN) | payer OTHER ==
--- OUTSIDE RECORDS SUMMARY | 2024-05-12 09:31 | XMS REPORT | Continuity of Care Document ---
Author Name Unknown Address [address] [place] [address] [facility] Address [address] [place] [address] Care Team Providers Care Associate Program Manager Name Role Phone JEFFERSON WITT Primary Care Physician UnavailBISI Dobbs Attending Clinician Unavail able CLAIRE ELAM Attending Clinician Unavailable GIOVANY ANTOINE Attending Clinician UnavailJefferson Saldaña MD Attending Clinician + Bisi Caceres PA-C Attending Clinician [phone] Unknown, Attending Attending Clinician Unavailab BISI Silva Attending Clinician Unavailable Giovany Antoine MD Attending Clinician [phone] Jefferson Witt MD Attending Clinician + JEFFERSON WITT Attending Clinician Unavailable DANIEL CASTELLON Attending Clinician Unavailable OBI-NARA, MONTSE Attending Clinician Unavailab guy OBI-NARA, MONTSE Attending Clinician Unavailab Priti Olivia RN Attending Clinician Unavailable Lab, Ang - Db Attending Clinician Unavailable Doctor Unassigned, [place] Attending Clinician U NORA Godwin Attending Clinician Unabolivar Morrow MD, Nora Garvin Attending Clinician [phone] ROSETTE CONTRERAS Attending Clinician Unavailable Ana Riddle MD Attending Clinician [phone] Unknown, Attending Attending Clinician Unavailab ANA Dinh Attending Clinician Unavailable CARLA VELASCO Attending Clinician Unavailable CARLA VELASCO Attending Clinician Unavailable JOSSE LEYVA Attending Clinician Unavailable Po, [facility] Main Attending Clinician Unavailjayson Freire RN, Alana Prabhakar Attending Clinician Kimberly vailable [place] [place] Attending Clinician Unavaila susanne Vidal HALL MONITOR, Richard Attending Clinician [phone] RICHARD VIDAL Attending Clinician Unavailable NOEMI WAITE Attending Clinician Unavailable Cande LAURA, Daniel Attending Clinician + [phone] Jonn LAURA, Claudia Ballesteros Attending Clinician [phone] Marylou Borrego Attending Clinician UnavailCLAUDIA Shepherd Attending Clinician Unavailable Rosette Markham Attending Clinician [phone] ION HOBBS Attending Clinician Kimberly vailable RACHELL CHENG Attending Clinician UnavailRACHELL Gonzales Attending Clinician Unavaila susanne Weems RN, Oleg Leach Attending Clinician UnavailJESUS Smith Attending Clinician Unavailable Jesus Spain MD Attending Clinician [phone] Rachell Cheng MD Attending Clinician + [phone] [facility] Attending Clinician Unavaila ble 2, [facility] Attending Clinician Unavailable DAYLIN MOJICA Attending Clinician Unavailable Daylin Mojica NP Attending Clinician [phone] Team, [facility] Attending Vinita[place] n Unavailable AMRINDA VEGA Attending Clinician Unavailable Noemi Christian Attending Clinician [phone] DILAN LOVE Attending Clinician UnavailDilan Harkins MD Attending Clinician + [phone] MARYLOU GAMINO Attending Clinician Unavailable PRAVEEN SAGE Attending Clinician Unavailable Praveen Shipman Attending Clinician + [phone] True OCONNOR, Brian Rivera Attending Clinician + [phone] BRIAN VENTURA Attending Clinician Unavaila ble Only, [facility] Test Attending Clinician Unavailable Mike OCONNOR, Maryam Attending Clinician [phone] MARYAM MCKEON Attending Clinician UnavailROBBIE Kiran Attending Clinician Unavailable Nurse, [facility] Pob Immunization Attending Clinician Unavailable Severo Lara DO Attending Clinician [phone] SEVERO LARA Attending Clinician Unavail able Linda CHONG, Elizabeth Ballesteros Attending Clinician Unavail able CHERYLE SILVA Attending Clinician Unavailable Trever OCONNOR, Cheryle Attending Clinician [phone] Derek HALL MONITOR, Doron Attending Clinician [phone] DORON WEINSTEIN Attending Clinician Unavailjayson Leyva HALL MONITOR, Josse Attending Clinician [phone] Provider, [facility] Attending Clinician Un available Alberto HALL MONITOR, Romi Koch Attending Clinician + [phone] Lia CHONG, Araceli Black Attending Clinician Unavailab JAYASHREE Schmidt Attending Clinician Unavailab Jayashree Schmidt DO Attending Clinician [phone] Attending Clinician Unavailable Bisi Cardoso MD Attending Clinician [phone] Guy Mcclellan RN, Yaneli Attending Clinician Unavailable , [facility] Echo Room 1 - Attending Clinician Christopher Coronado MD, Robbie Attending Clinician [phone] Visit, [facility] Nurse Attending Clinician Unavailable Gramm HALL MONITOR, Sandy A Attending Clinician [phone] GRAMM, SANDY A Attending Clinician Unavailable Lab, [facility] Fam Pob I Attending Clinician Unavailab guy [facility] Aleks Attending Clinician [phone] Pob1, [facility] Attending Clinician Unabrittney Delcid MD, Keila Attending Clinician [phone] KEILA DELCID Attending Clinician Unavailable Kim CHONG, Ciara Attending Clinician Unavailable BISI CARDOSO Admitting Clinician Unavail able [facility] [place] X Admitting Clinician Unavaila JESUS Arita Admitting Clinician Unavailable JEFFERSON WITT Admitting Clinician Unavailable BRIAN VENTURA Admitting Clinician Unavaila CHERYLE Zhao Admitting Clinician Unavailable Trever OCONNOR, Cheryle Admitting Clinician [phone] Bisi Cardoso MD Admitting Clinician [phone] KEILA DELCID Admitting Clinician Unavailable Payers Payer Name Policy Type Policy Number Effective Date Expirati on Date Source [employer] [id number] 2019 00:00:00 [facility] [id number] 2023 00:00:00 MEDICARE PART A \\T\\ B [id number] 2021 00:00:00 2021 00:00:00 [facility] [id number] 2021 00:00:00 2021 00:00:00 Problems Condition Name Condition Details Condition Category Status Onset Date Resolution Date Last Treatment Date Treating Clinician Comments Source Iron deficiency anemia, unspecifie d iron deficiency anemia type Iron deficiency anemia, unspecifie d iron deficiency anemia type Disease Active 4-08 00:00: 00 [facility] Yeast infection of the skin Yeast infection of the skin Disease Active 12-22 00:00: 00 [facility] VERNON (obstructi ve sleep apnea) VERNON (obstructi ve sleep apnea) Disease Active 2021-08 1-23 00:00: 00 [facility] Chest pain Chest pain Disease Active 2020-08 0 00:00: 00 [facility] Morbid obesity Morbid obesity Disease Active 2020-08 0 00:00: 00 [facility] Chronic atrial fibrillati on Chronic atrial fibrillati on Disease Active 2020-08 0 00:00: 00 [facility] ICD (implantab le cardiovert er-defibri llator) in place ICD (implantab le cardiovert er-defibri llator) in place Disease Active 2020-08 00:00: 00 [facility] Abnormal serum level of lipase Abnormal serum level of lipase Disease Active 2020-08 029 00:00: 00 [facility] Leg edema Leg edema Disease Active 2020-08 029 00:00: 00 [facility] Calculus of gallbladde r without cholecysti tis without obstructio n Calculus of gallbladde r without cholecysti tis without obstructio n Disease Active 2019-08 218 00:00: 00 Overview: Formattin g of this note might be different from the original. Added automatic ally from request for surgery [id number] [facility] Neuropathy Neuropathy Disease Active 04-24 00:00: 00 [facility] Bronchitis Bronchitis Disease Active 11-22 00:00: 00 [facility] SOB (shortness of breath) SOB (shortness of breath) Disease Active 11-22 00:00: 00 [facility] Fever in adult Fever in adult Disease Active 11-22 00:00: 00 [facility] Tobacco dependence Tobacco dependence Disease Active 11-22 00:00: 00 [facility] Obesity Obesity Disease Active 04-23 00:00: 00 [facility] Low back pain Low back pain Disease Active 04-23 00:00: 00 [facility] Anxiety Anxiety Disease Active 01-24 00:00: 00 [facility] Type 2 diabetes mellitus Type 2 diabetes mellitus Disease Active 01-13 00:00: 00 [facility] Hyperlipid emia with target LDL less than 100 Hyperlipid emia with target LDL less than 100 Disease Active 01-13 00:00: 00 [facility] Essential hypertensi on Essential hypertensi on Disease Active 01-13 00:00: 00 [facility] Right knee pain Right knee pain Disease Active 12-31 00:00: 00 [facility] Right knee pain Right knee pain Disease Active 12-31 00:00: 00 [facility] Allergies, Adverse Reactions, Alerts Allergy Name Allergy Type Status Severity Reaction(s) Onset Date Inactive Date Treating Clinician Comments Source Glijesuszid e Propensi ty to adverse reaction s Active Rash 12-26 00:00: 00 Rash on head, back [facility] GLIPIZID E DRUG INGREDI Active Rash 12-26 00:00: 00 [facility] Clindamy kaylan Propensi ty to adverse reaction s Active Nausea and/or Vomiting 2017-08 00:00: 00 [facility] CLINDAMY KAYLAN DRUG INGREDI Active N/V 2017-08 00:00: 00 [facility] SULFAMET HOXAZOLE -TRIMETH OPRIM DRUG Active N/V 2016-08 00:00: 00 [facility] Sulfamet hoxazole -Trimeth oprim Drug Allergy Active Nausea and/or Vomiting 2016-08 00:00: 00 Other reaction( s): vomiting [facility] Sulfa (Sulfona mide Antibiot ics) Propensi ty to adverse reaction s Active Rash 02-12 00:00: 00 [facility] Tetracyc lines Propensi ty to adverse reaction s Active Rash 02-12 00:00: 00 [facility] SULFA (SULFONA MIDE ANTIBIOT ICS) Drug Class Active Rash 02-12 00:00: 00 [facility] TETRACYC LINES Drug Class Active Rash 02-12 00:00: 00 [facility] Tetracyc lines Propensi ty to adverse reaction s Active Rash 02-12 00:00: 00 [facility] Sulfa (Sulfona mide Antibiot ics) Drug Allergy Active Rash 02-12 00:00: 00 Other reaction( s): itching, vomitingO ther reaction( s): itching, vomiting [facility] Social History Social Habit Start Date Stop Date Quantity Comments Source History of tobacco use Cigarette Smoker [facility] Gender identity [facility] Alcoholic beverage intake 2024-03-09 00:00:00 2024-03-09 00:00:00 0 /d [facility] Cigarettes smoked current (pack per day) - Reported 2023-12-25 00:00:00 2023-12-25 00:00:00 [facility] Cigarette pack-years 2023-12-25 00:00:00 2023-12-25 00:00:00 [facility] Tobacco use and exposure 2023-12-25 00:00:00 2023-12-25 00:00:00 User of smokeless tobacco [facility] History of Social function 2023-12-25 00:00:00 2023-12-25 00:00:00 [facility] Alcohol intake 2023-12-02 00:00:00 2023-12-02 00:00:00 0 /d [facility] Exposure to SARS-CoV-2 (event) 2022-12-12 00:00:00 2022-12-22 07:53:00 Not sure [facility] Sex assigned at 1960 00:00:00 1960 00:00:00 [facility] Smoking Status Start Date Stop Date Source Smokes tobacco daily 2023-12-25 00:00:00 [facility] Medications Ordered Medication Name Filled Medication Name Start Date Stop Date Current Medication? Ordering Clinician Indication Dosage Frequency Signature (SIG) Comments Components Source LISINOPRIL 40 mg tablet 04-13 00:00: 00 Yes [id number] 40mg TAKE 1 TABLET BY MOUTH IN THE MORNING [facility] cephALEXin 500 mg capsule 03-09 00:00: 00 03-17 04:59 :00 Yes [id number] 500mg Take 1 capsule by mouth 4 (four) times daily for 7 days. [facility] AMLODIPINE 10 mg tablet 02-14 00:00: 00 Yes [id number] 10mg TAKE 1 TABLET BY MOUTH IN THE MORNING [facility] TIZANIDINE 4 mg tablet 02-14 00:00: 00 Yes [id number] TAKE 1 TABLET BY MOUTH EVERY 8 HOURS NEEDED [facility] Insulin [place], Disposable, (BD ULTRAFINE III MINI PEN) 31 gauge x 3/16" Ndle 02-14 00:00: 00 Yes [id number] USE FOUR TIMES DAILY DIRECTED [facility] clonazePAM 1 mg tablet 01-26 00:00: 00 Yes [id number] TAKE 1 TABLET BY MOUTH FOUR TIMES DAILY NEEDED FOR PANIC [facility] clonazePAM 0.5 mg tablet 12-29 00:00: 00 Yes [id number] 1mg Take 2 tablets by mouth 3 (three) times daily as needed for Other (anxiety). [facility] insulin degludec (TRESIBA FLEXTOUCH U-200) 200 unit/mL (3 mL) InPn 12-24 00:00: 00 Yes [id number] 54U inject 54 Units under the skin in the morning and 54 Units in the evening. [facility] spironolact one 25 mg tablet 12-14 00:00: 00 Yes [id number] 25mg Take 1 tablet by mouth every morning and evening. [facility] metformin ER 500 mg 24 hr tablet 12-13 00:00: 00 Yes [id number] 1000mg Take 2 tablets by mouth in the morning and 2 tablets in the evening. Take with meals. [facility] amoxicillin -clavulanat e (AUGMENTIN) 875-125 mg per tablet 12-01 00:00: 00 03-09 00:00 :00 No [id number] 1{tbl} Take 1 tablet by mouth in the morning and 1 tablet in the evening. [facility] clonazePAM 1 mg tablet 12-01 00:00: 00 01-25 00:00 :00 No [id number] TAKE 1 TABLET BY MOUTH FOUR TIMES DAILY NEEDED FOR PANIC [facility] clonazePAM 0.5 mg tablet 12-01 00:00: 00 12-28 00:00 :00 No [id number] 1mg Take 2 tablets by mouth 3 (three) times daily as needed for Other (anxiety). [facility] TIZANIDINE 4 mg tablet 29 00:00: 00 02-14 00:00 :00 No [id number] TAKE 1 TABLET BY MOUTH EVERY 8 HOURS NEEDED [facility] carvediloL 6.25 mg tablet 16 00:00: 00 Yes [id number] TAKE 1 TABLET BY MOUTH IN THE MORNING AND IN THE EVENING. TAKE WITH FOOD. [facility] fluconazole (DIFLUCAN) 150 mg tablet 415 00:00: 00 11-16 04:59 :00 No [id number] 150mg Take 1 tablet by mouth once now for 1 dose. [facility] nystatin 100,000 unit/mL suspension 08 00:00: 00 Yes [id number] Take 5 mL by mouth 4 (four) times daily. [facility] clonazePAM 1 mg tablet 11-01 00:00: 00 11-30 00:00 :00 No [id number] TAKE 1 TABLET BY MOUTH FOUR TIMES DAILY NEEDED FOR PANIC [facility] nystatin 100,000 unit/mL suspension 19 00:00: 00 Yes [id number] Take 5 mL by mouth 4 (four) times daily. [facility] KCL 20 mEq tablet 3-14 00:00: 00 Yes [id number] 20meq Take 1 tablet by mouth in the morning and 1 tablet in the evening. [facility] lisinopriL 40 mg tablet 13 00:00: 00 04-13 00:00 :00 No [id number] 40mg Take 1 tablet by mouth in the morning. [facility] ALBUTEROL 90 mcg/actuati on inhaler 10-08 00:00: 00 Yes [id number] INHALE 2 PUFFS BY MOUTH EVERY 6 HOURS NEEDED FOR WHEEZING, SHORTNESS OF BREATH OR BRONCHOSPA SMS. [facility] lancets (TRUEPLUS LANCETS) 33 gauge Misc 10-08 00:00: 00 Yes USE DIRECTED TWICE DAILY [facility] clonazePAM 1 mg tablet 2-29 00:00: 00 11-01 00:00 :00 No [id number] TAKE 1 TABLET BY MOUTH FOUR TIMES DAILY NEEDED FOR PANIC [facility] spironolact one 25 mg tablet 2-13 00:00: 00 12-14 00:00 :00 No [id number] 25mg Take 1 tablet by mouth every morning and evening. [facility] blood sugar diagnostic (TRUE METRIX GLUCOSE TEST STRIP) strip 2-09 00:00: 00 Yes [id number] USE DIRECTED TO CHECK BLOOD SUGAR FOUR TIMES DAILY [facility] AMLODIPINE 10 mg tablet 09-11 00:00: 00 02-14 00:00 :00 No [id number] 10mg TAKE 1 TABLET BY MOUTH IN THE MORNING [facility] clonazePAM 1 mg tablet 09-02 00:00: 00 00:00 :00 No [id number] TAKE 1 TABLET BY MOUTH FOUR TIMES DAILY NEEDED FOR PANIC [facility] CHLORHEXIDI NE 0.12 % mouthwash 08-19 00:00: 00 Yes [id number] SWISH AND SPIT 15 ML BY MOUTH TWICE DAILY [facility] GLIPIZIDE XL 5 mg 24 hr tablet 08-10 00:00: 00 12-24 00:00 :00 No [id number] 5mg TAKE 1 TABLET BY MOUTH DAILY WITH BREAKFAST [facility] TIZANIDINE 4 mg tablet 08 00:00: 00 11-29 00:00 :00 No [id number] TAKE 1 TABLET BY MOUTH EVERY 8 HOURS NEEDED [facility] clonazePAM 1 mg tablet 1- 00:00: 00 09-02 00:00 :00 No [id number] TAKE 1 TABLET BY MOUTH FOUR TIMES DAILY NEEDED FOR PANIC [facility] gabapentin 300 mg capsule 2022-08 00:00: 00 Yes [id number] TAKE 1 CAPSULE BY MOUTH FOUR TIMES DAILY [facility] maalox/diph enhydrAMINE :lidocaine2 % viscous 1:1:1 Susp suspension 2022-08 00:00: 00 Yes [id number] 5mL Take 5 mL by mouth 3 (three) times daily as needed (gargle and spit). [facility] nystatin 100,000 unit/gram powder 2022-08 00:00: 00 Yes [id number] Apply to area(s) 2 (two) times daily. [facility] Insulin [place], Disposable, (BD ULTRAFINE III MINI PEN) 31 gauge x 3/16" Ndle 2022-08 00:00: 00 02-14 00:00 :00 No [id number] USE DIRECTED FOUR TIMES DAILY. Dx E11.9 [facility] insulin degludec (TRESIBA FLEXTOUCH U-200) 200 unit/mL (3 mL) InPn 2022-08 00:00: 00 12-24 00:00 :00 No [id number] ADMINISTER 48 UNITS UNDER THE SKIN THREE TIMES DAILY [facility] metFORMIN 850 mg tablet 2022-08 00:00: 00 12-13 00:00 :00 No [id number] 850mg Take 1 tablet by mouth daily with breakfast. [facility] empaglifloz in (JARDIANCE) 10 mg 2022-08 00:00: 00 11-15 00:00 :00 No [id number] 10mg Take 1 tablet by mouth in the morning. [facility] neomycin-po lymyxin-gra micidin ophthalmic drops 2022-08 00:00: 00 Yes [id number] 1[drp] Place 1 Drop in left eye in the morning and 1 Drop at noon and 1 Drop in the evening. [facility] clonazePAM 1 mg tablet 2022-08 00:00: 00 08-05 00:00 :00 No [id number] TAKE 1 TABLET BY MOUTH FOUR TIMES DAILY NEEDED FOR PANIC [facility] erythromyci n 5 mg/gram (0.5 %) ophthalmic ointment 2022-08 00:00: 00 07-09 00:00 :00 No [id number] 9106 .5[in_u s] Place 0.5 Inches in left eye 4 (four) times daily. [facility] ALBUTEROL 90 mcg/actuati on inhaler 2022-08 00:00: 00 10-08 00:00 :00 No [id number] INHALE 2 PUFFS BY MOUTH EVERY 6 HOURS NEEDED FOR WHEEZING, SHORTNESS OF BREATH OR BRONCHOSPA SMS. [facility] clonazePAM 1 mg tablet 2022-08 00:00: 00 07-07 00:00 :00 No [id number] TAKE 1 TABLET BY MOUTH FOUR TIMES DAILY NEEDED FOR PANIC [facility] lisinopriL 40 mg tablet 2022-0818 00:00: 00 10-13 00:00 :00 No 40mg Take 1 tablet by mouth in the morning. [facility] lisinopriL 20 mg tablet 2022-08 00:00: 00 05-20 00:00 :00 No [id number] 40mg Take 2 tablets by mouth in the morning. TAKE 1 TABLET BY MOUTH IN THE MORNING [facility] GLIPIZIDE XL 5 mg 24 hr tablet 2022-08 00:00: 00 08-10 00:00 :00 No [id number] 5mg TAKE 1 TABLET BY MOUTH DAILY WITH BREAKFAST [facility] METFORMIN 850 mg tablet 2022-08 00:00: 00 07-10 00:00 :00 No [id number] TAKE 1 TABLET BY MOUTH THREE TIMES DAILY [facility] CARVEDILOL 6.25 mg tablet 2022-08 0- 00:00: 00 11-16 00:00 :00 No [id number] TAKE 1 TABLET BY MOUTH IN THE MORNING AND IN THE EVENING. TAKE WITH FOOD. [facility] TIZANIDINE 4 mg tablet 2022-08 0- 00:00: 00 08-10 00:00 :00 No [id number] TAKE 1 TABLET BY MOUTH EVERY 8 HOURS NEEDED [facility] NYSTATIN 100,000 unit/mL suspension 2022-08 0- 00:00: 00 07-09 00:00 :00 No [id number] SHAKE LIQUID AND TAKE 5 ML BY MOUTH FOUR TIMES DAILY [facility] LISINOPRIL 20 mg tablet 2022-08 0 00:00: 00 05-20 00:00 :00 No [id number] 20mg TAKE 1 TABLET BY MOUTH IN THE MORNING [facility] neomycin-po lymyxin-gra micidin ophthalmic drops 2022-08 0-09 00:00: 00 07-09 00:00 :00 No [id number] 1[drp] Place 1 Drop in left eye in the morning and 1 Drop in the evening. [facility] FLUCONAZOLE 150 mg tablet 04-30 00:00: 00 Yes [id number] TAKE 1 TABLET BY MOUTH 1 TIME NOW FOR 1 DOSE [facility] GABAPENTIN 300 mg capsule 04-30 00:00: 00 07-30 00:00 :00 No [id number] TAKE 1 CAPSULE BY MOUTH FOUR TIMES DAILY [facility] FUROSEMIDE 80 mg tablet 04-13 00:00: 00 Yes [id number] 80mg TAKE 1 TABLET BY MOUTH IN THE MORNING [facility] SPIRONOLACT ONE 25 mg tablet 04-13 00:00: 00 09-15 00:00 :00 No [id number] TAKE 1 TABLET BY MOUTH IN THE MORNING AND IN THE EVENING [facility] fluconazole (DIFLUCAN) 150 mg tablet 04-13 00:00: 00 04-14 04:59 :00 No [id number] 150mg Take 1 tablet by mouth once now for 1 dose. [facility] clonazePAM 1 mg tablet 04-08 00:00: 00 06-08 00:00 :00 No [id number] 1mg Take 1 tablet by mouth 4 (four) times daily as needed for Other (panic). [facility] ALBUTEROL 90 mcg/actuati on inhaler 03-30 00:00: 00 06-29 00:00 :00 No [id number] INHALE 2 PUFFS BY MOUTH EVERY 6 HOURS NEEDED FOR WHEEZING, SHORTNESS OF BREATH OR BRONCHOSPA SMS. [facility] amLODIPine 10 mg tablet 03-26 00:00: 00 09-11 00:00 :00 No [id number] 10mg Take 1 tablet by mouth in the morning. [facility] lisinopriL 40 mg tablet 8 00:00: 00 07-09 00:00 :00 No [id number] 40mg Take 1 tablet by mouth in the morning. [facility] Insulin [place], Disposable, (BD ULTRAFINE III MINI PEN) 31 gauge x 3/16" Ndle 02-25 00:00: 00 07-10 00:00 :00 No [id number] USE DIRECTED FOUR TIMES DAILY. Dx E11.9 [facility] glipiZIDE XL 5 mg 24 hr tablet 02-25 00:00: 00 05-14 00:00 :00 No [id number] 5mg Take 1 tablet by mouth daily with breakfast. [facility] TIZANIDINE 4 mg tablet 02-23 00:00: 00 05-13 00:00 :00 No [id number] TAKE 1 TABLET BY MOUTH EVERY 8 HOURS NEEDED [facility] METFORMIN 850 mg tablet 02-20 00:00: 00 05-14 00:00 :00 No [id number] TAKE 1 TABLET BY MOUTH THREE TIMES DAILY [facility] ALBUTEROL 90 mcg/actuati on inhaler 14 00:00: 00 03-30 00:00 :00 No [id number] INHALE 2 PUFFS BY MOUTH EVERY 6 HOURS NEEDED FOR WHEEZING, SHORTNESS OF BREATH OR BRONCHOSPA SMS. [facility] clonazePAM 1 mg tablet 02-11 00:00: 00 04-08 00:00 :00 No [id number] 1mg Take 1 tablet by mouth in the morning and 1 tablet at noon and 1 tablet in the evening. [facility] nystatin 100,000 unit/gram powder 01-27 00:00: 00 07-09 00:00 :00 No [id number] Apply to area(s) 2 (two) times daily. [facility] nystatin 100,000 unit/mL suspension 01-26 00:00: 00 Yes [id number] Take 5 mL by mouth 4 (four) times daily. [facility] SPIRONOLACT ONE 25 mg tablet 01-26 00:00: 00 04-13 00:00 :00 No [id number] TAKE 1 TABLET BY MOUTH IN THE MORNING AND IN THE EVENING [facility] nystatin 100,000 unit/gram powder 01-12 00:00: 00 07-22 00:00 :00 No [id number] Apply to area(s) 2 (two) times daily. [facility] traMADoL 50 mg tablet 01-07 00:00: 00 01-15 04:59 :00 No [id number] 50mg Take 1 tablet by mouth every 6 (six) hours as needed for Pain (scale 4-6) for up to 7 days. Indication s: chronic pain [facility] nystatin 100,000 unit/gram powder 01-02 00:00: 00 01-12 00:00 :00 No [id number] Apply to area(s) 2 (two) times daily. [facility] NYSTATIN 100,000 unit/mL suspension 01-01 00:00: 00 01-26 00:00 :00 No [id number] SHAKE LIQUID AND TAKE 5 ML BY MOUTH FOUR TIMES DAILY [facility] gabapentin 300 mg capsule 12-28 00:00: 00 04-30 00:00 :00 No [id number] TAKE 1 CAPSULE BY MOUTH FOUR TIMES DAILY [facility] escitalopra m oxalate 20 mg tablet 12-22 10:42: 08 12-22 00:00 :00 No 1 tablet [facility] fluconazole (DIFLUCAN) 150 mg tablet 12-22 00:00: 00 04-13 00:00 :00 No [id number] Weekly for 4 weeks [facility] nystatin 100,000 unit/gram powder 12-22 00:00: 01-02 00:00 :00 No [id number] Apply to area(s) 2 (two) times daily. [facility] venlafaxine XR 150 mg 24 hr capsule 12-20 00:00: 00 Yes [facility] travoprost 0.004 % ophthalmic solution 12-17 00:00: 00 Yes INSTILL 1 DROP IN BOTH EYES EVERY NIGHT AT BEDTIME [facility] ALBUTEROL 90 mcg/actuati on inhaler 12-17 00:00: 00 02-13 00:00 :00 No [id number] INHALE 2 PUFFS BY MOUTH EVERY 6 HOURS NEEDED FOR WHEEZING, SHORTNESS OF BREATH OR BRONCHOSPA SMS. [facility] clonazePAM 1 mg tablet 12-15 00:00: 00 02-11 00:00 :00 No [id number] 1mg Take 1 tablet by mouth in the morning and 1 tablet at noon and 1 tablet in the evening. [facility] metoprolol tartrate 25 mg tablet 12-10 00:00: 00 Yes [id number] 25mg Take 1 tablet by mouth in the morning and 1 tablet in the evening. [facility] TIZANIDINE 4 mg tablet 12-08 00:00: 00 02-23 00:00 :00 No [id number] TAKE 1 TABLET BY MOUTH EVERY 8 HOURS NEEDED [facility] traMADoL 50 mg tablet 12-08 00:00: 00 12-16 04:59 :00 No [id number] 50mg Take 1 tablet by mouth every 6 (six) hours as needed for Pain (scale 4-6) for up to 7 days. Indication s: chronic pain [facility] metFORMIN 850 mg tablet 12-06 00:00: 00 02-20 00:00 :00 No [id number] TAKE 1 TABLET BY MOUTH THREE TIMES DAILY [facility] lisinopriL 20 mg tablet 4-27 00:00: 00 05-13 00:00 :00 No [id number] 20mg Take 1 tablet by mouth in the morning. [facility] carvediloL 6.25 mg tablet 11-27 00:00: 00 05-13 00:00 :00 No [id number] 6.25mg Take 1 tablet by mouth in the morning and 1 tablet in the evening. [facility] amoxicillin 500 mg tablet 11-27 00:00: 00 12-22 00:00 :00 No [id number] 500mg Take 1 tablet by mouth in the morning and 1 tablet at noon and 1 tablet in the evening. [facility] escitalopra m oxalate 20 mg tablet 11-12 09:26: 18 Yes 1 tablet [facility] furosemide 80 mg tablet 11-12 00:00: 00 04-13 00:00 :00 No [id number] 80mg Take 1 tablet by mouth in the morning. [facility] spironolact one 25 mg tablet 11-12 00:00: 00 01-26 00:00 :00 No [id number] 25mg Take 1 tablet by mouth in the morning and 1 tablet in the evening. [facility] traMADoL 50 mg tablet 11-12 00:00: 00 11-20 04:59 :00 No [id number] 50mg Take 1 tablet by mouth every 6 (six) hours as needed for Pain (scale 4-6) for up to 7 days. Indication s: chronic pain [facility] nystatin 100,000 unit/mL suspension 11-05 00:00: 00 01-01 00:00 :00 No [id number] 212423V Take 5 mL by mouth 4 (four) times daily. [facility] azelastine 137 mcg (0.1 %) nasal spray 10-30 00:00: 00 11-15 00:00 :00 No [id number] 1{spray } Use 1 [place] in each nostril in the morning and 1 [place] in the evening. Use in each nostril as directed [facility] benzonatate (TESSALON PERLES) 100 mg capsule 10-30 00:00: 00 07-09 00:00 :00 No [id number] 100mg Take 1 capsule by mouth every 8 (eight) hours as needed for Cough. [facility] CHLORHEXIDI NE 0.12 % mouthwash 10-27 00:00: 00 08-19 00:00 :00 No [id number] SWISH AND SPIT 15 ML BY MOUTH TWICE DAILY [facility] traMADoL 50 mg tablet 10-27 00:00: 00 11-04 04:59 :00 No [id number] 50mg Take 1 tablet by mouth every 6 (six) hours as needed for Pain (scale 4-6) for up to 7 days. Indication s: chronic pain [facility] lisinopriL (ZESTRIL) 40 mg tablet 10-17 00:00: 00 11-27 00:00 :00 No [id number] 40mg Take 1 tablet by mouth in the morning. [facility] clonazePAM 1 mg tablet 10-15 00:00: 00 12-15 00:00 :00 No [id number] 1mg Take 1 tablet by mouth in the morning and 1 tablet at noon and 1 tablet in the evening. [facility] NIFEdipine ER 60 mg tablet 10-07 00:00: 00 11-27 00:00 :00 No [id number] 60mg Take 1 tablet by mouth in the morning and 1 tablet in the evening. [facility] glipiZIDE XL 5 mg 24 hr tablet 09-22 00:00: 00 02-25 00:00 :00 No [id number] 5mg TAKE 1 TABLET BY MOUTH DAILY WITH BREAKFAST [facility] Mometasone- Formoterol (DULERA) 200-5 mcg/actuati on inhaler 09-10 00:00: 00 Yes [id number] 2{puff} Inhale 2 Puffs in the morning and 2 Puffs in the evening. [facility] nystatin 100,000 unit/mL suspension 09-10 00:00: 00 01-26 00:00 :00 No [id number] Take 5 mL by mouth 4 (four) times daily. [facility] albuterol 90 mcg/actuati on inhaler 09-10 00:00: 00 12-17 00:00 :00 No [id number] INHALE 2 PUFFS BY MOUTH EVERY 6 HOURS NEEDED FOR WHEEZING, SHORTNESS OF BREATH OR BRONCHOSPA SMS [facility] traMADoL 50 mg tablet 09-10 00:00: 00 09-18 05:59 :00 No [id number] 50mg Take 1 tablet by mouth every 6 (six) hours as needed for Pain (scale 4-6) for up to 7 days. Indication s: chronic pain [facility] lancets 33 gauge Misc 09-02 00:00: 00 10-08 00:00 :00 No Use as directed twice a day for E11.9 [facility] blood sugar diagnostic (TRUE METRIX GLUCOSE TEST STRIP) strip 09-02 00:00: 00 09-11 00:00 :00 No [id number] Use as directed to check blood sugar QID DX: E11.9 [facility] fluconazole (DIFLUCAN) 150 mg tablet 09-02 00:00: 00 04-13 00:00 :00 No 150mg Take 1 tablet by mouth every 5 (five) days. [facility] carvediloL 6.25 mg tablet 09-01 00:00: 00 11-27 00:00 :00 No 6.25mg Take 1 tablet by mouth in the morning and 1 tablet in the evening. [facility] Cholecalcif emmanuel, Vitamin D3, 1,250 mcg (50,000 unit) capsule 08-30 00:00: 00 Yes 1{capsu le} Take 1 capsule by mouth weekly. [facility] Cholecalcif emmanuel, Vitamin D3, 1,250 mcg (50,000 unit) capsule 08-30 00:00: 00 Yes [id number] Take 1 capsule by mouth weekly. [facility] clonazePAM 1 mg tablet 18 00:00: 00 10-15 00:00 :00 No [id number] 1mg Take 1 tablet by mouth in the morning and 1 tablet at noon and 1 tablet in the evening. [facility] TIZANIDINE 4 mg tablet 08-19 00:00: 00 12-08 00:00 :00 No [id number] TAKE 1 TABLET BY MOUTH EVERY 8 HOURS NEEDED [facility] venlafaxine XR 37.5 mg 24 hr capsule 08-16 00:00: 00 Yes TAKE 1 CAPSULE BY MOUTH EVERY MORNING WITH VENLAFAXIN E ER 150MG [facility] acetic acid 0.25 % irrigation solution 08-12 00:00: 00 Yes USE DIRECTED FOR WOUND CARE DAILY [facility] cefepime in iso-osm dextrose (CEFEPIME IN DEXTROSE,IS O-OSM) 2 gram/100 mL PgBk 08-10 00:00: 00 07-09 00:00 :00 No [facility] nystatin 100,000 unit/mL suspension 08-08 00:00: 00 08-19 05:59 :00 No [id number] U Swish and spit out 10 mL 4 (four) times daily for 10 days. [facility] traMADoL 50 mg tablet 08-07 12:07: 49 08-07 00:00 :00 No 1-2 tablet as needed [facility] escitalopra m oxalate 20 mg tablet 08-07 11:59: 27 Yes 1 tablet [facility] SANTYL 250 unit/gram ointment 08-06 00:00: 00 Yes APPLY NICKEL THICK TO WOUND DAILY [facility] vancomycin 5 gram injection 2021-08 00:00: 00 07-09 00:00 :00 No [facility] HYDROcodone -acetaminop hen 7.5-325 mg per tablet 2021-08 00:00: 00 09-10 00:00 :00 No [id number] 1{tbl} Take 1 tablet by mouth every 6 (six) hours as needed for Pain. Indication s: chronic pain [facility] gabapentin 300 mg capsule 2021-08 00:00: 00 12-28 00:00 :00 No [id number] TAKE 1 CAPSULE BY MOUTH FOUR TIMES DAILY [facility] latanoprost 0.005 % ophthalmic drops 2021-08 00:00: 00 Yes INSTILL 1 DROP INTO BOTH EYES ONCE DAILY [facility] NIFEdipine ER 60 mg tablet 2021-08 00:00: 00 10-07 00:00 :00 No [id number] 60mg Take 1 tablet by mouth in the morning and 1 tablet in the evening. [facility] ondansetron (ZOFRAN (PF)) injection 4 mg 2021-08 20:45: 00 07-19 20:00 :00 No 4mg 4 mg, Slow IV Push, ONCE, 1 dose, On 07/19/22 at 1445, GEOVANI [facility] morpHINE (4 mg/mL) injection 4 mg 2021-08 19:45: 00 07-19 20:00 :00 No 4mg 4 mg, Slow IV Push, ONCE, 1 dose, On 07/19/22 at 1345, STAT [facility] cephALEXin (KEFLEX) 500 mg capsule 2021-08 00:00: 00 07-09 00:00 :00 No [id number] 500mg Take 1 capsule by mouth 4 (four) times daily. [facility] ciprofloxac in HCl 500 mg tablet 2021-08 00:00: 00 09-02 00:00 :00 No [id number] 500mg Take 1 tablet by mouth in the morning and 1 tablet in the evening. [facility] furosemide 80 mg tablet 2021-08 00:00: 00 11-12 00:00 :00 No 80mg Take 1 tablet by mouth every 48 (forty-eig ht) hours. [facility] spironolact one 25 mg tablet 2021-08 00:00: 11-12 00:00 :00 No 25mg Take 1 tablet by mouth every 48 (forty-eig ht) hours. [facility] quinapriL 40 mg tablet 2021-08 00:00: 00 10-17 00:00 :00 No [id number] 40mg Take 1 tablet by mouth every morning. [facility] HYDROcodone -acetaminop hen 7.5-325 mg per tablet 2021-08 00:00: 00 07-30 00:00 :00 No [id number] 1{tbl} Take 1 tablet by mouth every 6 (six) hours as needed for Pain. Indication s: chronic pain [facility] MUPIROCIN 2 % ointment 2021-08 00:00: 00 07-09 00:00 :00 No [id number] APPLY TOPICALLY TO THE AFFECTED AREA THREE TIMES DAILY [facility] clonazePAM 1 mg tablet 2021-08 00:00: 00 08-20 00:00 :00 No [id number] 1mg Take 1 tablet by mouth in the morning and 1 tablet at noon and 1 tablet in the evening. [facility] furosemide 80 mg tablet 2021-08 00:00: 00 07-10 00:00 :00 No 80mg Take 1 tablet by mouth in the morning. [facility] NIFEdipine ER 30 mg tablet 2021-08 00:00: 00 07-21 00:00 :00 No [id number] 30mg Take 1 tablet by mouth in the morning and 1 tablet in the evening. [facility] insulin degludec (TRESIBA FLEXTOUCH U-200) 200 unit/mL (3 mL) InPn 2021-08 00:00: 00 07-10 00:00 :00 No [id number] ADMINISTER 62 UNITS UNDER THE SKIN THREE TIMES DAILY [facility] HYDROcodone -acetaminop hen 7.5-325 mg per tablet 2021-08 00:00: 00 07-02 00:00 :00 No [id number] 1{tbl} Take 1 tablet by mouth every 6 (six) hours as needed for Pain. Indication s: chronic pain [facility] AMLODIPINE 5 mg tablet 2021-08 0-28 00:00: 00 06-10 00:00 :00 No [id number] 5mg TAKE 1 TABLET BY MOUTH DAILY [facility] TIZANIDINE 4 mg tablet 2021-08 024 00:00: 00 08-19 00:00 :00 No [id number] TAKE 1 TABLET BY MOUTH EVERY 8 HOURS NEEDED [facility] empaglifloz in (JARDIANCE) 10 mg 2021-08 00:00: 00 07-10 00:00 :00 No [id number] 10mg Take 1 tablet by mouth in the morning. [facility] amoxicillin 500 mg tablet 2021-08 00:00: 00 07-09 00:00 :00 No [id number] 500mg Take 1 tablet by mouth in the morning and 1 tablet in the evening. [facility] METFORMIN 850 mg tablet 2021-08 00:00: 00 12-06 00:00 :00 No [id number] TAKE 1 TABLET BY MOUTH THREE TIMES DAILY [facility] GLIPIZIDE XL 5 mg 24 hr tablet 2021-08 00:00: 00 09-22 00:00 :00 No [id number] 5mg TAKE 1 TABLET BY MOUTH DAILY WITH BREAKFAST [facility] ALBUTEROL 90 mcg/actuati on inhaler 2021-08 00:00: 00 09-10 00:00 :00 No [id number] INHALE 2 PUFFS BY MOUTH EVERY 6 HOURS NEEDED FOR WHEEZING, SHORTNESS OF BREATH OR BRONCHOSPA [facility] QUINAPRIL 40 mg tablet 2021-08 00:00: 00 07-09 00:00 :00 No [id number] 40mg TAKE 1 TABLET BY MOUTH EVERY MORNING [facility] HYDROcodone -acetaminop hen 7.5-325 mg per tablet 2021-08 0-05 00:00: 00 06-04 00:00 :00 No [id number] 1{tbl} Take 1 tablet by mouth every 6 (six) hours as needed for Pain. Indication s: chronic pain [facility] gabapentin 300 mg capsule 04-29 00:00: 00 07-22 00:00 :00 No [id number] TAKE 1 CAPSULE BY MOUTH FOUR TIMES DAILY [facility] clonazePAM 1 mg tablet 04-28 00:00: 06-23 00:00 :00 No [id number] 1mg Take 1 tablet by mouth in the morning and 1 tablet at noon and 1 tablet in the evening. [facility] HYDROcodone -acetaminop hen 7.5-325 mg per tablet 04-09 00:00: 00 05-07 00:00 :00 No [id number] 1{tbl} Take 1 tablet by mouth every 6 (six) hours as needed for Pain. Indication s: chronic pain [facility] VERAPAMIL 240 mg 24 hr capsule 03-31 00:00: 06-10 00:00 :00 No [id number] 240mg TAKE 1 CAPSULE BY MOUTH DAILY [facility] ALBUTEROL 90 mcg/actuati on inhaler 03-26 00:00: 05-23 00:00 :00 No [id number] INHALE 2 PUFFS BY MOUTH EVERY 6 HOURS NEEDED FOR WHEEZING, SHORTNESS OF BREATH OR BRONCHOSPA SMS [facility] HYDROcodone -acetaminop hen 7.5-325 mg per tablet 03-11 00:00: 00 04-09 00:00 :00 No [id number] 1{tbl} Take 1 tablet by mouth every 6 (six) hours as needed for Pain. Indication s: chronic pain [facility] TIZANIDINE 4 mg tablet 03-03 00:00: 00 05-26 00:00 :00 No [id number] TAKE 1 TABLET BY MOUTH EVERY 8 HOURS NEEDED [facility] QUINAPRIL 40 mg tablet 03-03 00:00: 05-23 00:00 :00 No [id number] 40mg TAKE 1 TABLET BY MOUTH EVERY MORNING [facility] glipiZIDE XL 5 mg 24 hr tablet 02-27 00:00: 00 05-23 00:00 :00 No [id number] 5mg TAKE 1 TABLET BY MOUTH DAILY WITH BREAKFAST [facility] clonazePAM 1 mg tablet 02-24 00:00: 00 04-28 00:00 :00 No [id number] 1mg Take 1 tablet by mouth in the morning and 1 tablet at noon and 1 tablet in the evening. [facility] nirmatrelvi r-ritonavir (PAXLOVID, EUA,) 150 mg x 2- 100 mg tablet 02-12 00:00: 00 05-23 00:00 :00 No [id number] 3{tbl} Take 3 tablets by mouth in the morning and 3 tablets in the evening. [facility] meloxicam 7.5 mg tablet 02-11 00:00: 00 11-15 00:00 :00 No 7.5mg Take 1 tablet by mouth in the morning. [facility] HYDROcodone -acetaminop hen 7.5-325 mg per tablet 02-10 00:00: 00 Yes [id number] 1{tbl} Take 1 tablet by mouth every 6 (six) hours as needed for Pain. Indication s: chronic pain [facility] chlorhexidi ne 0.12 % mouthwash 02-05 00:00: 00 10-27 00:00 :00 No [id number] 15mL Swish and spit out 15 mL 2 (two) times daily. [facility] albuterol 90 mcg/actuati on inhaler 02-05 00:00: 00 03-26 00:00 :00 No [id number] INHALE 2 PUFFS BY MOUTH EVERY 6 HOURS NEEDED FOR WHEEZING, SHORTNESS OF BREATH OR BRONCHOSPA [facility] Insulin [place], Disposable, (BD ULTRAFINE III MINI PEN) 31 gauge x 3/16" Ndle 02-02 00:00: 00 Yes [id number] USE DIRECTED FOUR TIMES DAILY. Dx E11.9 [facility] Insulin [place], Disposable, (BD ULTRAFINE III MINI PEN) 31 gauge x 3/16" Ndle 7- 00:00: 00 02-25 00:00 :00 No [id number] USE DIRECTED FOUR TIMES DAILY. Dx E11.9 [facility] TRESIBA FLEXTOUCH U-200 200 unit/mL (3 mL) InPn 01-26 00:00: 00 06-05 00:00 :00 No [id number] ADMINISTER 62 UNITS UNDER THE SKIN THREE TIMES DAILY [facility] VERAPAMIL 240 mg 24 hr capsule 12-31 00:00: 00 03-31 00:00 :00 No [id number] 240mg TAKE 1 CAPSULE BY MOUTH DAILY [facility] mupirocin 2 % ointment 12-25 00:00: 00 06-30 00:00 :00 No [id number] Apply to area(s) 3 (three) times daily. [facility] aspirin 325 mg tablet 12-10 09:43: 40 Yes 325mg Take 325 mg by mouth daily. [facility] ketoconazol e 2 % shampoo 12-10 00:00: 00 Yes [id number] Apply to area(s) once daily as needed for Itching. [facility] METFORMIN 850 mg tablet 12-02 00:00: 00 05-23 00:00 :00 No [id number] TAKE 1 TABLET BY MOUTH THREE TIMES DAILY [facility] lancets 33 gauge Misc 11-25 00:00: 00 09-02 00:00 :00 No Use as directed twice a day for E11.9 [facility] gabapentin 300 mg capsule -11 00:00: 00 04-29 00:00 :00 No [id number] TAKE 1 CAPSULE BY MOUTH FOUR TIMES DAILY [facility] TRUE METRIX GLUCOSE METER Kit 3-16 00:00: 00 Yes [id number] Use as directed for 4 times a day glucose check, ICD E11.9 [facility] TRUE METRIX GLUCOSE TEST STRIP strip 3-16 00:00: 00 09-02 00:00 :00 No [id number] Use as directed to check blood sugar QID DX: E11.9 [facility] SPIRONOLACT ONE 25 mg tablet 09-02 00:00: 00 07-10 00:00 :00 No [id number] TAKE 1 TABLET BY MOUTH TWICE DAILY [facility] FUROSEMIDE 80 mg tablet 09-02 00:00: 00 06-11 00:00 :00 No TAKE 1 TABLET BY MOUTH TWICE DAILY [facility] AMLODIPINE 5 mg tablet 09-02 00:00: 00 05-30 00:00 :00 No [id number] 5mg TAKE 1 TABLET BY MOUTH DAILY [facility] venlafaxine XR 150 mg 24 hr capsule 08-15 00:00: 00 09-10 00:00 :00 No [id number] TK 1 C PO QD [facility] omega-3 fatty acids-vitam in E (FISH OIL) 1,000 mg capsule 2020-08 09:44: 23 Yes 1g Take 1 g by mouth daily. [facility] omega-3 fatty acids-vitam in E (FISH OIL) 1,000 mg capsule 2020-08 09:44: 23 Yes 1g Take 1 g by mouth daily. [facility] Methylcellu lose, with Sugar, (CITRUCEL, SUCROSE,) powder 04-25 00:00: 00 Yes [id number] 1{scoop } Take 1 Scoop by mouth daily. Mixed with water [facility] Methylcellu lose, with Sugar, (CITRUCEL, SUCROSE,) powder 04-25 00:00: 00 Yes [id number] 1{scoop } Take 1 Scoop by mouth daily. Mixed with water [facility] chlorhexidi ne 4 % external liquid 04-24 00:00: 00 Yes [id number] Apply to area(s) once daily as needed for Wound care. [facility] chlorhexidi ne 4 % external liquid 04-24 00:00: 00 07-09 00:00 :00 No [id number] Apply to area(s) once daily as needed for Wound care. [facility] ONETOUCH DELICA PLUS LANCET 30 gauge Misc 7 00:00: 00 Yes [id number] Use as directed for twice a day glucose monitoring for ICD E11.9 [facility] diclofenac 75 mg EC tablet 04-04 00:00: 00 Yes [id number] 75mg Take 1 tablet by mouth 2 (two) times daily with meals. [facility] [employer] [facility] Kit 11-22 00:00: 00 Yes [id number] J40: Brochitis - Dispense # 1 Jose Respironic s (okay for alternativ e brand) for nebulizer treatment [facility] Supply Kit 11-22 00:00: 00 Yes [id number] J40: Brochitis - Dispense # 1 Jose Respironic s (okay for alternativ e brand) for nebulizer treatment [facility] ALCOHOL PREP PADS PadM 6-14 00:00: 00 Yes [facility] loxapine (LOXITANE) 50 mg capsule 1-20 00:00: 00 Yes [facility] Immunizations Ordered Immunization Name Filled Immunization Name Date Status Comments Source Influenza Virus Vaccine Recomb Quad IM, Preserv and ABX Free 1864 YRS 2022-04-03 00:00:00 Completed [facility] Influenza Virus Vaccine Recomb Quad IM, Preserv and ABX Free 64 YRS 2022-04-03 00:00:00 Completed [facility] Influenza Virus Vaccine Recomb Quad IM, Preserv and ABX Free 64 YRS 2022-04-03 00:00:00 Completed [facility] Influenza Virus Vaccine Recomb Quad IM, Preserv and ABX Free 1864 YRS 2022-04-03 00:00:00 Completed [facility] Influenza Virus Vaccine Recomb Quad IM, Preserv and ABX Free YRS 2022-04-03 00:00:00 Completed [facility] Influenza Virus Vaccine Recomb Quad IM, Preserv and ABX Free 18-64 YRS 2022-04-03 00:00:00 Completed [facility] Influenza Virus Vaccine Recomb Quad IM, Preserv and ABX Free 18-64 YRS 2022-04-03 00:00:00 Completed [facility] Influenza Virus Vaccine Recomb Quad IM, Preserv and ABX Free 18-64 YRS 2022-04-03 00:00:00 Completed [facility] Influenza Virus Vaccine Recomb Quad IM, Preserv and ABX Free 18-64 YRS 2022-04-03 00:00:00 Completed [facility] Influenza Virus Vaccine Recomb Quad IM, Preserv and ABX Free 18-64 YRS 2022-04-03 00:00:00 Completed [facility] Influenza Virus Vaccine Recomb Quad IM, Preserv and ABX Free 18-64 YRS 2022-04-03 00:00:00 Completed [facility] Influenza Virus Vaccine Recomb Quad IM, Preserv and ABX Free 18-64 YRS 2022-04-03 00:00:00 Completed [facility] Influenza Virus Vaccine Recomb Quad IM, Preserv and ABX Free 18-64 YRS 2022-04-03 00:00:00 Completed [facility] Influenza Virus Vaccine Recomb Quad IM, Preserv and ABX Free 18-64 YRS 2022-04-03 00:00:00 Completed [facility] Influenza Virus Vaccine Recomb Quad IM, Preserv and ABX Free 18-64 YRS 2022-04-03 00:00:00 Completed [facility] Influenza Virus Vaccine Recomb Quad IM, Preserv and ABX Free 18-64 YRS 2022-04-03 00:00:00 Completed [facility] Influenza Virus Vaccine Recomb Quad IM, Preserv and ABX Free 18-64 YRS 2022-04-03 00:00:00 Completed [facility] Influenza Virus Vaccine Recomb Quad IM, Preserv and ABX Free 18-64 YRS 2022-04-03 00:00:00 Completed [facility] Influenza Virus Vaccine Recomb Quad IM, Preserv and ABX Free 18-64 YRS 2022-04-03 00:00:00 Completed [facility] Influenza Virus Vaccine Recomb Quad IM, Preserv and ABX Free 18-64 YRS 2022-04-03 00:00:00 Completed [facility] Influenza Virus Vaccine Recomb Quad IM, Preserv and ABX Free 18-64 YRS 2022-04-03 00:00:00 Completed [facility] Influenza Virus Vaccine Recomb Quad IM, Preserv and ABX Free 18-64 YRS 2022-04-03 00:00:00 Completed [facility] Influenza Virus Vaccine Recomb Quad IM, Preserv and ABX Free 18-64 YRS 2022-04-03 00:00:00 Completed [facility] Influenza Virus Vaccine Recomb Quad IM, Preserv and ABX Free 18-64 YRS 2022-04-03 00:00:00 Completed [facility] Influenza Virus Vaccine Recomb Quad IM, Preserv and ABX Free 18-64 YRS 2022-04-03 00:00:00 Completed [facility] Influenza Virus Vaccine Recomb Quad IM, Preserv and ABX Free 18-64 YRS 2022-04-03 00:00:00 Completed [facility] Influenza Virus Vaccine Recomb Quad IM, Preserv and ABX Free 18-64 YRS 2022-04-03 00:00:00 Completed [facility] Influenza Virus Vaccine Recomb Quad IM, Preserv and ABX Free 18-64 YRS 2022-04-03 00:00:00 Completed [facility] Influenza Virus Vaccine Recomb Quad IM, Preserv and ABX Free 18-64 YRS 2022-04-03 00:00:00 Completed [facility] Influenza Virus Vaccine Recomb Quad IM, Preserv and ABX Free 18-64 YRS 2022-04-03 00:00:00 Completed [facility] Influenza Virus Vaccine Recomb Quad IM, Preserv and ABX Free 18-64 YRS 2022-04-03 00:00:00 Completed [facility] Influenza Virus Vaccine Recomb Quad IM, Preserv and ABX Free 18-64 YRS 2022-04-03 00:00:00 Completed [facility] Influenza Virus Vaccine Recomb Quad IM, Preserv and ABX Free 18-64 YRS 2022-04-03 00:00:00 Completed [facility] Influenza Virus Vaccine Recomb Quad IM, Preserv and ABX Free 18-64 YRS 2022-04-03 00:00:00 Completed [facility] Influenza Virus Vaccine Recomb Quad IM, Preserv and ABX Free 18-64 YRS 2022-04-03 00:00:00 Completed [facility] Influenza Virus Vaccine Recomb Quad IM, Preserv and ABX Free 18-64 YRS 2022-04-03 00:00:00 Completed [facility] Influenza Virus Vaccine Recomb Quad IM, Preserv and ABX Free 18-64 YRS 2022-04-03 00:00:00 Completed [facility] Influenza Virus Vaccine Recomb Quad IM, Preserv and ABX Free 18-64 YRS 2022-04-03 00:00:00 Completed [facility] Influenza Virus Vaccine Recomb Quad IM, Preserv and ABX Free 18-64 YRS 2022-04-03 00:00:00 Completed [facility] Influenza Virus Vaccine Recomb Quad IM, Preserv and ABX Free 18-64 YRS 2022-04-03 00:00:00 Completed [facility] Influenza Virus Vaccine Recomb Quad IM, Preserv and ABX Free 18-64 YRS 2022-04-03 00:00:00 Completed [facility] Influenza Virus Vaccine Recomb Quad IM, Preserv and ABX Free 18-64 YRS 2022-04-03 00:00:00 Completed [facility] Influenza Virus Vaccine Recomb Quad IM, Preserv and ABX Free 18-64 YRS 2022-04-03 00:00:00 Completed [facility] Influenza Virus Vaccine Recomb Quad IM, Preserv and ABX Free 18-64 YRS 2022-04-03 00:00:00 Completed [facility] Influenza Virus Vaccine Recomb Quad IM, Preserv and ABX Free 18-64 YRS 2022-04-03 00:00:00 Completed [facility] Influenza Virus Vaccine Recomb Quad IM, Preserv and ABX Free 18-64 YRS 2022-04-03 00:00:00 Completed [facility] Influenza Virus Vaccine Recomb Quad IM, Preserv and ABX Free 18-64 YRS 2022-04-03 00:00:00 Completed [facility] Influenza Virus Vaccine Recomb Quad IM, Preserv and ABX Free 18-64 YRS 2022-04-03 00:00:00 Completed [facility] Influenza Virus Vaccine Recomb Quad IM, Preserv and ABX Free 18-64 YRS 2022-04-03 00:00:00 Completed [facility] Influenza Virus Vaccine Recomb Quad IM, Preserv and ABX Free 18-64 YRS 2022-04-03 00:00:00 Completed [facility] Influenza Virus Vaccine Recomb Quad IM, Preserv and ABX Free 18-64 YRS 2022-04-03 00:00:00 Completed [facility] Influenza Virus Vaccine Recomb Quad IM, Preserv and ABX Free 18-64 YRS 2022-04-03 00:00:00 Completed [facility] Influenza Virus Vaccine Recomb Quad IM, Preserv and ABX Free 18-64 YRS 2022-04-03 00:00:00 Completed [facility] Influenza Virus Vaccine Recomb Quad IM, Preserv and ABX Free 18-64 YRS 2022-04-03 00:00:00 Completed [facility] Influenza Virus Vaccine Recomb Quad IM, Preserv and ABX Free 18-64 YRS 2022-04-03 00:00:00 Completed [facility] Influenza Virus Vaccine Recomb Quad IM, Preserv and ABX Free 18-64 YRS 2022-04-03 00:00:00 Completed [facility] Influenza Virus Vaccine Recomb Quad IM, Preserv and ABX Free 18-64 YRS 2022-04-03 00:00:00 Completed [facility] Influenza Virus Vaccine Recomb Quad IM, Preserv and ABX Free -64 YRS 2022-04-03 00:00:00 Completed [facility] Influenza Virus Vaccine Recomb Quad IM, Preserv and ABX Free 18-64 YRS 2022-04-03 00:00:00 Completed [facility] Influenza Virus Vaccine Recomb Quad IM, Preserv and ABX Free 18-64 YRS 2022-04-03 00:00:00 Completed [facility] Influenza Virus Vaccine Recomb Quad IM, Preserv and ABX Free 18-64 YRS 2022-04-03 00:00:00 Completed [facility] Influenza Virus Vaccine Recomb Quad IM, Preserv and ABX Free 18-64 YRS 2022-04-03 00:00:00 Completed [facility] Influenza Virus Vaccine Recomb Quad IM, Preserv and ABX Free 18-64 YRS 2022-04-03 00:00:00 Completed [facility] Influenza Virus Vaccine Recomb Quad IM, Preserv and ABX Free 18-64 YRS 2022-04-03 00:00:00 Completed [facility] Influenza Virus Vaccine Recomb Quad IM, Preserv and ABX Free 18-64 YRS 2022-04-03 00:00:00 Completed [facility] Influenza Virus Vaccine Recomb Quad IM, Preserv and ABX Free 18-64 YRS 2022-04-03 00:00:00 Completed [facility] Influenza Virus Vaccine Recomb Quad IM, Preserv and ABX Free 18-64 YRS 2022-04-03 00:00:00 Completed [facility] Influenza Virus Vaccine Recomb Quad IM, Preserv and ABX Free 18-64 YRS 2022-04-03 00:00:00 Completed [facility] Influenza Virus Vaccine Recomb Quad IM, Preserv and ABX Free -64 YRS 2022-04-03 00:00:00 Completed [facility] Influenza Virus Vaccine Recomb Quad IM, Preserv and ABX Free 18-64 YRS 2022-04-03 00:00:00 Completed [facility] Influenza Virus Vaccine Recomb Quad IM, Preserv and ABX Free 18-64 YRS 2022-04-03 00:00:00 Completed [facility] Influenza Virus Vaccine Recomb Quad IM, Preserv and ABX Free 18-64 YRS 2022-04-03 00:00:00 Completed [facility] Influenza Virus Vaccine Recomb Quad IM, Preserv and ABX Free 18-64 YRS 2022-04-03 00:00:00 Completed [facility] Influenza Virus Vaccine Recomb Quad IM, Preserv and ABX Free 18-64 YRS 2022-04-03 00:00:00 Completed [facility] Influenza Virus Vaccine Recomb Quad IM, Preserv and ABX Free 18-64 YRS 2022-04-03 00:00:00 Completed [facility] Influenza Virus Vaccine Recomb Quad IM, Preserv and ABX Free 18-64 YRS 2022-04-03 00:00:00 Completed [facility] Influenza Virus Vaccine Recomb Quad IM, Preserv and ABX Free 18-64 YRS 2022-04-03 00:00:00 Completed [facility] Influenza Virus Vaccine Recomb Quad IM, Preserv and ABX Free 18-64 YRS 2022-04-03 00:00:00 Completed [facility] Influenza Virus Vaccine Recomb Quad IM, Preserv and ABX Free 18-64 YRS 2022-04-03 00:00:00 Completed [facility] Influenza Virus Vaccine Recomb Quad IM, Preserv and ABX Free 18-64 YRS 2022-04-03 00:00:00 Completed [facility] Influenza Virus Vaccine Recomb Quad IM, Preserv and ABX Free 18-64 YRS 2022-04-03 00:00:00 Completed [facility] Influenza Virus Vaccine Recomb Quad IM, Preserv and ABX Free 18-64 YRS 2022-04-03 00:00:00 Completed [facility] Influenza Virus Vaccine Recomb Quad IM, Preserv and ABX Free 18-64 YRS 2022-04-03 00:00:00 Completed [facility] Influenza Virus Vaccine Recomb Quad IM, Preserv and ABX Free 18-64 YRS 2022-04-03 00:00:00 Completed [facility] Influenza Virus Vaccine Recomb Quad IM, Preserv and ABX Free 18-64 YRS 2022-04-03 00:00:00 Completed [facility] Influenza Virus Vaccine Recomb Quad IM, Preserv and ABX Free 18-64 YRS 2022-04-03 00:00:00 Completed [facility] Influenza Virus Vaccine Recomb Quad IM, Preserv and ABX Free -64 YRS 2022-04-03 00:00:00 Completed [facility] Influenza Virus Vaccine Recomb Quad IM, Preserv and ABX Free -64 YRS 2022-04-03 00:00:00 Completed [facility] Influenza Virus Vaccine Recomb Quad IM, Preserv and ABX Free 18-64 YRS 2022-04-03 00:00:00 Completed [facility] Influenza Virus Vaccine Recomb Quad IM, Preserv and ABX Free 18-64 YRS 2022-04-03 00:00:00 Completed [facility] Influenza Virus Vaccine Recomb Quad IM, Preserv and ABX Free 18-64 YRS 2022-04-03 00:00:00 Completed [facility] Influenza Virus Vaccine Recomb Quad IM, Preserv and ABX Free 18-64 YRS 2022-04-03 00:00:00 Completed [facility] Influenza Virus Vaccine Recomb Quad IM, Preserv and ABX Free 18-64 YRS 2022-04-03 00:00:00 Completed [facility] Influenza Virus Vaccine Recomb Quad IM, Preserv and ABX Free 18-64 YRS 2022-04-03 00:00:00 Completed [facility] Influenza Virus Vaccine Recomb Quad IM, Preserv and ABX Free 18-64 YRS 2022-04-03 00:00:00 Completed [facility] Influenza Virus Vaccine Recomb Quad IM, Preserv and ABX Free 18-64 YRS 2022-04-03 00:00:00 Completed [facility] Influenza Virus Vaccine Recomb Quad IM, Preserv and ABX Free 18-64 YRS 2022-04-03 00:00:00 Completed [facility] Influenza Virus Vaccine Recomb Quad IM, Preserv and ABX Free 18-64 YRS 2022-04-03 00:00:00 Completed [facility] Influenza Virus Vaccine Recomb Quad IM, Preserv and ABX Free 18-64 YRS 2022-04-03 00:00:00 Completed [facility] Influenza Virus Vaccine Recomb Quad IM, Preserv and ABX Free 18-64 YRS 2022-04-03 00:00:00 Completed [facility] Influenza Virus Vaccine Recomb Quad IM, Preserv and ABX Free 18-64 YRS 2022-04-03 00:00:00 Completed [facility] Influenza Virus Vaccine Recomb Quad IM, Preserv and ABX Free -64 YRS 2022-04-03 00:00:00 Completed [facility] Influenza Virus Vaccine Recomb Quad IM, Preserv and ABX Free 18-64 YRS 2022-04-03 00:00:00 Completed [facility] Influenza Virus Vaccine Recomb Quad IM, Preserv and ABX Free 18-64 YRS 2022-04-03 00:00:00 Completed [facility] Influenza Virus Vaccine Recomb Quad IM, Preserv and ABX Free 18-64 YRS 2022-04-03 00:00:00 Completed [facility] Influenza Virus Vaccine Recomb Quad IM, Preserv and ABX Free -64 YRS 2022-04-03 00:00:00 Completed [facility] Influenza Virus Vaccine Recomb Quad IM, Preserv and ABX Free 18-64 YRS 2022-04-03 00:00:00 Completed [facility] Influenza Virus Vaccine Recomb Quad IM, Preserv and ABX Free -64 YRS 2022-04-03 00:00:00 Completed [facility] Influenza Virus Vaccine Recomb Quad IM, Preserv and ABX Free 18-64 YRS 2022-04-03 00:00:00 Completed [facility] Influenza Virus Vaccine Recomb Quad IM, Preserv and ABX Free 18-64 YRS 2022-04-03 00:00:00 Completed [facility] Influenza Virus Vaccine Recomb Quad IM, Preserv and ABX Free 18-64 YRS 2022-04-03 00:00:00 Completed [facility] Influenza Virus Vaccine Recomb Quad IM, Preserv and ABX Free 18-64 YRS 2022-04-03 00:00:00 Completed [facility] Influenza Virus Vaccine Recomb Quad IM, Preserv and ABX Free 18-64 YRS 2022-04-03 00:00:00 Completed [facility] Influenza Virus Vaccine Recomb Quad IM, Preserv and ABX Free 18-64 YRS 2022-04-03 00:00:00 Completed [facility] Influenza Virus Vaccine Recomb Quad IM, Preserv and ABX Free 18-64 YRS 2022-04-03 00:00:00 Completed [facility] Influenza Virus Vaccine Recomb Quad IM, Preserv and ABX Free 18-64 YRS 2022-04-03 00:00:00 Completed [facility] Influenza Virus Vaccine Recomb Quad IM, Preserv and ABX Free 18-64 YRS 2022-04-03 00:00:00 Completed [facility] Influenza Virus Vaccine Recomb Quad IM, Preserv and ABX Free 18-64 YRS 2022-04-03 00:00:00 Completed [facility] Influenza Virus Vaccine Recomb Quad IM, Preserv and ABX Free 18-64 YRS 2022-04-03 00:00:00 Completed [facility] Influenza Virus Vaccine Recomb Quad IM, Preserv and ABX Free 18-64 YRS 2022-04-03 00:00:00 Completed [facility] Influenza Virus Vaccine Recomb Quad IM, Preserv and ABX Free 18-64 YRS 2022-04-03 00:00:00 Completed [facility] Influenza Virus Vaccine Recomb Quad IM, Preserv and ABX Free 18-64 YRS 2022-04-03 00:00:00 Completed [facility] Influenza Virus Vaccine Recomb Quad IM, Preserv and ABX Free 18-64 YRS 2022-04-03 00:00:00 Completed [facility] Influenza Virus Vaccine Recomb Quad IM, Preserv and ABX Free 18-64 YRS 2022-04-03 00:00:00 Completed [facility] Influenza Virus Vaccine Recomb Quad IM, Preserv and ABX Free 18-64 YRS 2022-04-03 00:00:00 Completed [facility] Influenza Virus Vaccine Recomb Quad IM, Preserv and ABX Free 18-64 YRS 2022-04-03 00:00:00 Completed [facility] Influenza Virus Vaccine Recomb Quad IM, Preserv and ABX Free 18-64 YRS 2022-04-03 00:00:00 Completed [facility] Influenza Virus Vaccine Recomb Quad IM, Preserv and ABX Free 18-64 YRS 2022-04-03 00:00:00 Completed [facility] Influenza Virus Vaccine Recomb Quad IM, Preserv and ABX Free 18-64 YRS 2022-04-03 00:00:00 Completed [facility] Influenza Virus Vaccine Recomb Quad IM, Preserv and ABX Free 18-64 YRS 2022-04-03 00:00:00 Completed [facility] Influenza Virus Vaccine Recomb Quad IM, Preserv and ABX Free 18-64 YRS 2022-04-03 00:00:00 Completed [facility] Influenza Virus Vaccine Recomb Quad IM, Preserv and ABX Free 18-64 YRS 2022-04-03 00:00:00 Completed [facility] Influenza Virus Vaccine Recomb Quad IM, Preserv and ABX Free 18-64 YRS 2022-04-03 00:00:00 Completed [facility] Influenza Virus Vaccine Recomb Quad IM, Preserv and ABX Free 18-64 YRS 2022-04-03 00:00:00 Completed [facility] Influenza Virus Vaccine Recomb Quad IM, Preserv and ABX Free 18-64 YRS 2022-04-03 00:00:00 Completed [facility] Influenza Virus Vaccine Recomb Quad IM, Preserv and ABX Free 18-64 YRS 2022-04-03 00:00:00 Completed [facility] Influenza Virus Vaccine Recomb Quad IM, Preserv and ABX Free 18-64 YRS 2022-04-03 00:00:00 Completed [facility] SARS-COV-2 COVID-19 MODERNA 0.25ML BOOSTER VACCINE 2021-06-04 00:00:00 Completed [facility] SARS-COV-2 COVID-19 MODERNA 0.25ML BOOSTER VACCINE 2021-06-04 00:00:00 Completed [facility] SARS-COV-2 COVID-19 MODERNA 0.25ML BOOSTER VACCINE 2021-06-04 00:00:00 Completed [facility] SARS-COV-2 COVID-19 MODERNA 0.25ML BOOSTER VACCINE 2021-06-04 00:00:00 Completed [facility] SARS-COV-2 COVID-19 MODERNA 0.25ML BOOSTER VACCINE 2021-06-04 00:00:00 Completed [facility] SARS-COV-2 COVID-19 MODERNA 0.25ML BOOSTER VACCINE 2021-06-04 00:00:00 Completed [facility] SARS-COV-2 COVID-19 MODERNA 0.25ML BOOSTER VACCINE 2021-06-04 00:00:00 Completed [facility] SARS-COV-2 COVID-19 MODERNA 0.25ML BOOSTER VACCINE 2021-06-04 00:00:00 Completed [facility] SARS-COV-2 COVID-19 MODERNA 0.25ML BOOSTER VACCINE 2021-06-04 00:00:00 Completed [facility] SARS-COV-2 COVID-19 MODERNA 0.25ML BOOSTER VACCINE 2021-06-04 00:00:00 Completed [facility] SARS-COV-2 COVID-19 MODERNA 0.25ML BOOSTER VACCINE 2021-06-04 00:00:00 Completed [facility] SARS-COV-2 COVID-19 MODERNA 0.25ML BOOSTER VACCINE 2021-06-04 00:00:00 Completed [facility] SARS-COV-2 COVID-19 MODERNA 0.25ML BOOSTER VACCINE 2021-06-04 00:00:00 Completed [facility] SARS-COV-2 COVID-19 MODERNA 0.25ML BOOSTER VACCINE 2021-06-04 00:00:00 Completed [facility] SARS-COV-2 COVID-19 MODERNA 0.25ML BOOSTER VACCINE 2021-06-04 00:00:00 Completed [facility] SARS-COV-2 COVID-19 MODERNA 0.25ML BOOSTER VACCINE 2021-06-04 00:00:00 Completed [facility] SARS-COV-2 COVID-19 MODERNA 0.25ML BOOSTER VACCINE 2021-06-04 00:00:00 Completed [facility] SARS-COV-2 COVID-19 MODERNA 0.25ML BOOSTER VACCINE 2021-06-04 00:00:00 Completed [facility] SARS-COV-2 COVID-19 MODERNA 0.25ML BOOSTER VACCINE 2021-06-04 00:00:00 Completed [facility] SARS-COV-2 COVID-19 MODERNA 0.25ML BOOSTER VACCINE 2021-06-04 00:00:00 Completed [facility] SARS-COV-2 COVID-19 MODERNA 0.25ML BOOSTER VACCINE 2021-06-04 00:00:00 Completed [facility] SARS-COV-2 COVID-19 MODERNA 0.25ML BOOSTER VACCINE 2021-06-04 00:00:00 Completed [facility] SARS-COV-2 COVID-19 MODERNA 0.25ML BOOSTER VACCINE 2021-06-04 00:00:00 Completed [facility] SARS-COV-2 COVID-19 MODERNA 0.25ML BOOSTER VACCINE 2021-06-04 00:00:00 Completed [facility] SARS-COV-2 COVID-19 MODERNA 0.25ML BOOSTER VACCINE 2021-06-04 00:00:00 Completed [facility] SARS-COV-2 COVID-19 MODERNA 0.25ML BOOSTER VACCINE 2021-06-04 00:00:00 Completed [facility] SARS-COV-2 COVID-19 MODERNA 0.25ML BOOSTER VACCINE 2021-06-04 00:00:00 Completed [facility] SARS-COV-2 COVID-19 MODERNA 0.25ML BOOSTER VACCINE 2021-06-04 00:00:00 Completed [facility] SARS-COV-2 COVID-19 MODERNA 0.25ML BOOSTER VACCINE 2021-06-04 00:00:00 Completed [facility] SARS-COV-2 COVID-19 MODERNA 0.25ML BOOSTER VACCINE 2021-06-04 00:00:00 Completed [facility] SARS-COV-2 COVID-19 MODERNA 0.25ML BOOSTER VACCINE 2021-06-04 00:00:00 Completed [facility] SARS-COV-2 COVID-19 MODERNA 0.25ML BOOSTER VACCINE 2021-06-04 00:00:00 Completed [facility] SARS-COV-2 COVID-19 MODERNA 0.25ML BOOSTER VACCINE 2021-06-04 00:00:00 Completed [facility] SARS-COV-2 COVID-19 MODERNA 0.25ML BOOSTER VACCINE 2021-06-04 00:00:00 Completed [facility] SARS-COV-2 COVID-19 MODERNA 0.25ML BOOSTER VACCINE 2021-06-04 00:00:00 Completed [facility] SARS-COV-2 COVID-19 MODERNA 0.25ML BOOSTER VACCINE 2021-06-04 00:00:00 Completed [facility] SARS-COV-2 COVID-19 MODERNA 0.25ML BOOSTER VACCINE 2021-06-04 00:00:00 Completed [facility] SARS-COV-2 COVID-19 MODERNA 0.25ML BOOSTER VACCINE 2021-06-04 00:00:00 Completed [facility] SARS-COV-2 COVID-19 MODERNA 0.25ML BOOSTER VACCINE 2021-06-04 00:00:00 Completed [facility] SARS-COV-2 COVID-19 MODERNA 0.25ML BOOSTER VACCINE 2021-06-04 00:00:00 Completed [facility] SARS-COV-2 COVID-19 MODERNA 0.25ML BOOSTER VACCINE 2021-06-04 00:00:00 Completed [facility] SARS-COV-2 COVID-19 MODERNA 0.25ML BOOSTER VACCINE 2021-06-04 00:00:00 Completed [facility] SARS-COV-2 COVID-19 MODERNA 0.25ML BOOSTER VACCINE 2021-06-04 00:00:00 Completed [facility] SARS-COV-2 COVID-19 MODERNA 0.25ML BOOSTER VACCINE 2021-06-04 00:00:00 Completed [facility] SARS-COV-2 COVID-19 MODERNA 0.25ML BOOSTER VACCINE 2021-06-04 00:00:00 Completed [facility] SARS-COV-2 COVID-19 MODERNA 0.25ML BOOSTER VACCINE 2021-06-04 00:00:00 Completed [facility] SARS-COV-2 COVID-19 MODERNA 0.25ML BOOSTER VACCINE 2021-06-04 00:00:00 Completed [facility] SARS-COV-2 COVID-19 MODERNA 0.25ML BOOSTER VACCINE 2021-06-04 00:00:00 Completed [facility] SARS-COV-2 COVID-19 MODERNA 0.25ML BOOSTER VACCINE 2021-06-04 00:00:00 Completed [facility] SARS-COV-2 COVID-19 MODERNA 0.25ML BOOSTER VACCINE 2021-06-04 00:00:00 Completed [facility] SARS-COV-2 COVID-19 MODERNA 0.25ML BOOSTER VACCINE 2021-06-04 00:00:00 Completed [facility] SARS-COV-2 COVID-19 MODERNA 0.25ML BOOSTER VACCINE 2021-06-04 00:00:00 Completed [facility] SARS-COV-2 COVID-19 MODERNA 0.25ML BOOSTER VACCINE 2021-06-04 00:00:00 Completed [facility] SARS-COV-2 COVID-19 MODERNA 0.25ML BOOSTER VACCINE 2021-06-04 00:00:00 Completed [facility] SARS-COV-2 COVID-19 MODERNA 0.25ML BOOSTER VACCINE 2021-06-04 00:00:00 Completed [facility] SARS-COV-2 COVID-19 MODERNA 0.25ML BOOSTER VACCINE 2021-06-04 00:00:00 Completed [facility] SARS-COV-2 COVID-19 MODERNA 0.25ML BOOSTER VACCINE 2021-06-04 00:00:00 Completed [facility] SARS-COV-2 COVID-19 MODERNA 0.25ML BOOSTER VACCINE 2021-06-04 00:00:00 Completed [facility] SARS-COV-2 COVID-19 MODERNA 0.25ML BOOSTER VACCINE 2021-06-04 00:00:00 Completed [facility] SARS-COV-2 COVID-19 MODERNA 0.25ML BOOSTER VACCINE 2021-06-04 00:00:00 Completed [facility] SARS-COV-2 COVID-19 MODERNA 0.25ML BOOSTER VACCINE 2021-06-04 00:00:00 Completed [facility] SARS-COV-2 COVID-19 MODERNA 0.25ML BOOSTER VACCINE 2021-06-04 00:00:00 Completed [facility] SARS-COV-2 COVID-19 MODERNA 0.25ML BOOSTER VACCINE 2021-06-04 00:00:00 Completed [facility] SARS-COV-2 COVID-19 MODERNA 0.25ML BOOSTER VACCINE 2021-06-04 00:00:00 Completed [facility] SARS-COV-2 COVID-19 MODERNA 0.25ML BOOSTER VACCINE 2021-06-04 00:00:00 Completed [facility] SARS-COV-2 COVID-19 MODERNA 0.25ML BOOSTER VACCINE 2021-06-04 00:00:00 Completed [facility] SARS-COV-2 COVID-19 MODERNA 0.25ML BOOSTER VACCINE 2021-06-04 00:00:00 Completed [facility] SARS-COV-2 COVID-19 MODERNA 0.25ML BOOSTER VACCINE 2021-06-04 00:00:00 Completed [facility] SARS-COV-2 COVID-19 MODERNA 0.25ML BOOSTER VACCINE 2021-06-04 00:00:00 Completed [facility] SARS-COV-2 COVID-19 MODERNA 0.25ML BOOSTER VACCINE 2021-06-04 00:00:00 Completed [facility] SARS-COV-2 COVID-19 MODERNA 0.25ML BOOSTER VACCINE 2021-06-04 00:00:00 Completed [facility] SARS-COV-2 COVID-19 MODERNA 0.25ML BOOSTER VACCINE 2021-06-04 00:00:00 Completed [facility] SARS-COV-2 COVID-19 MODERNA 0.25ML BOOSTER VACCINE 2021-06-04 00:00:00 Completed [facility] SARS-COV-2 COVID-19 MODERNA 0.25ML BOOSTER VACCINE 2021-06-04 00:00:00 Completed [facility] SARS-COV-2 COVID-19 MODERNA 0.25ML BOOSTER VACCINE 2021-06-04 00:00:00 Completed [facility] SARS-COV-2 COVID-19 MODERNA 0.25ML BOOSTER VACCINE 2021-06-04 00:00:00 Completed [facility] SARS-COV-2 COVID-19 MODERNA 0.25ML BOOSTER VACCINE 2021-06-04 00:00:00 Completed [facility] SARS-COV-2 COVID-19 MODERNA 0.25ML BOOSTER VACCINE 2021-06-04 00:00:00 Completed [facility] SARS-COV-2 COVID-19 MODERNA 0.25ML BOOSTER VACCINE 2021-06-04 00:00:00 Completed [facility] SARS-COV-2 COVID-19 MODERNA 0.25ML BOOSTER VACCINE 2021-06-04 00:00:00 Completed [facility] SARS-COV-2 COVID-19 MODERNA 0.25ML BOOSTER VACCINE 2021-06-04 00:00:00 Completed [facility] SARS-COV-2 COVID-19 MODERNA 0.25ML BOOSTER VACCINE 2021-06-04 00:00:00 Completed [facility] SARS-COV-2 COVID-19 MODERNA 0.25ML BOOSTER VACCINE 2021-06-04 00:00:00 Completed [facility] SARS-COV-2 COVID-19 MODERNA 0.25ML BOOSTER VACCINE 2021-06-04 00:00:00 Completed [facility] SARS-COV-2 COVID-19 MODERNA 0.25ML BOOSTER VACCINE 2021-06-04 00:00:00 Completed [facility] SARS-COV-2 COVID-19 MODERNA 0.25ML BOOSTER VACCINE 2021-06-04 00:00:00 Completed [facility] SARS-COV-2 COVID-19 MODERNA 0.25ML BOOSTER VACCINE 2021-06-04 00:00:00 Completed [facility] SARS-COV-2 COVID-19 MODERNA 0.25ML BOOSTER VACCINE 2021-06-04 00:00:00 Completed [facility] SARS-COV-2 COVID-19 MODERNA 0.25ML BOOSTER VACCINE 2021-06-04 00:00:00 Completed [facility] SARS-COV-2 COVID-19 MODERNA 0.25ML BOOSTER VACCINE 2021-06-04 00:00:00 Completed [facility] SARS-COV-2 COVID-19 MODERNA 0.25ML BOOSTER VACCINE 2021-06-04 00:00:00 Completed [facility] SARS-COV-2 COVID-19 MODERNA 0.25ML BOOSTER VACCINE 2021-06-04 00:00:00 Completed [facility] SARS-COV-2 COVID-19 MODERNA 0.25ML BOOSTER VACCINE 2021-06-04 00:00:00 Completed [facility] SARS-COV-2 COVID-19 MODERNA 0.25ML BOOSTER VACCINE 2021-06-04 00:00:00 Completed [facility] SARS-COV-2 COVID-19 MODERNA 0.25ML BOOSTER VACCINE 2021-06-04 00:00:00 Completed [facility] SARS-COV-2 COVID-19 MODERNA 0.25ML BOOSTER VACCINE 2021-06-04 00:00:00 Completed [facility] SARS-COV-2 COVID-19 MODERNA 0.25ML BOOSTER VACCINE 2021-06-04 00:00:00 Completed [facility] SARS-COV-2 COVID-19 MODERNA 0.25ML BOOSTER VACCINE 2021-06-04 00:00:00 Completed [facility] SARS-COV-2 COVID-19 MODERNA 0.25ML BOOSTER VACCINE 2021-06-04 00:00:00 Completed [facility] SARS-COV-2 COVID-19 MODERNA 0.25ML BOOSTER VACCINE 2021-06-04 00:00:00 Completed [facility] SARS-COV-2 COVID-19 MODERNA 0.25ML BOOSTER VACCINE 2021-06-04 00:00:00 Completed [facility] SARS-COV-2 COVID-19 MODERNA 0.25ML BOOSTER VACCINE 2021-06-04 00:00:00 Completed [facility] SARS-COV-2 COVID-19 MODERNA 0.25ML BOOSTER VACCINE 2021-06-04 00:00:00 Completed [facility] SARS-COV-2 COVID-19 MODERNA 0.25ML BOOSTER VACCINE 2021-06-04 00:00:00 Completed [facility] SARS-COV-2 COVID-19 MODERNA 0.25ML BOOSTER VACCINE 2021-06-04 00:00:00 Completed [facility] SARS-COV-2 COVID-19 MODERNA 0.25ML BOOSTER VACCINE 2021-06-04 00:00:00 Completed [facility] SARS-COV-2 COVID-19 MODERNA 0.25ML BOOSTER VACCINE 2021-06-04 00:00:00 Completed [facility] SARS-COV-2 COVID-19 MODERNA 0.25ML BOOSTER VACCINE 2021-06-04 00:00:00 Completed [facility] SARS-COV-2 COVID-19 MODERNA 0.25ML BOOSTER VACCINE 2021-06-04 00:00:00 Completed [facility] SARS-COV-2 COVID-19 MODERNA 0.25ML BOOSTER VACCINE 2021-06-04 00:00:00 Completed [facility] SARS-COV-2 COVID-19 MODERNA 0.25ML BOOSTER VACCINE 2021-06-04 00:00:00 Completed [facility] SARS-COV-2 COVID-19 MODERNA 0.25ML BOOSTER VACCINE 2021-06-04 00:00:00 Completed [facility] SARS-COV-2 COVID-19 MODERNA 0.25ML BOOSTER VACCINE 2021-06-04 00:00:00 Completed [facility] SARS-COV-2 COVID-19 MODERNA 0.25ML BOOSTER VACCINE 2021-06-04 00:00:00 Completed [facility] SARS-COV-2 COVID-19 MODERNA 0.25ML BOOSTER VACCINE 2021-06-04 00:00:00 Completed [facility] SARS-COV-2 COVID-19 MODERNA 0.25ML BOOSTER VACCINE 2021-06-04 00:00:00 Completed [facility] SARS-COV-2 COVID-19 MODERNA 0.25ML BOOSTER VACCINE 2021-06-04 00:00:00 Completed [facility] SARS-COV-2 COVID-19 MODERNA 0.25ML BOOSTER VACCINE 2021-06-04 00:00:00 Completed [facility] SARS-COV-2 COVID-19 MODERNA 0.25ML BOOSTER VACCINE 2021-06-04 00:00:00 Completed [facility] SARS-COV-2 COVID-19 MODERNA 0.25ML BOOSTER VACCINE 2021-06-04 00:00:00 Completed [facility] SARS-COV-2 COVID-19 MODERNA 0.25ML BOOSTER VACCINE 2021-06-04 00:00:00 Completed [facility] SARS-COV-2 COVID-19 MODERNA 0.25ML BOOSTER VACCINE 2021-06-04 00:00:00 Completed [facility] SARS-COV-2 COVID-19 MODERNA 0.25ML BOOSTER VACCINE 2021-06-04 00:00:00 Completed [facility] SARS-COV-2 COVID-19 MODERNA 0.25ML BOOSTER VACCINE 2021-06-04 00:00:00 Completed [facility] SARS-COV-2 COVID-19 MODERNA 0.25ML BOOSTER VACCINE 2021-06-04 00:00:00 Completed [facility] SARS-COV-2 COVID-19 MODERNA 0.25ML BOOSTER VACCINE 2021-06-04 00:00:00 Completed [facility] SARS-COV-2 COVID-19 MODERNA 0.25ML BOOSTER VACCINE 2021-06-04 00:00:00 Completed [facility] SARS-COV-2 COVID-19 MODERNA 0.25ML BOOSTER VACCINE 2021-06-04 00:00:00 Completed [facility] SARS-COV-2 COVID-19 MODERNA 0.25ML BOOSTER VACCINE 2021-06-04 00:00:00 Completed [facility] SARS-COV-2 COVID-19 MODERNA 0.25ML BOOSTER VACCINE 2021-06-04 00:00:00 Completed [facility] SARS-COV-2 COVID-19 MODERNA 0.25ML BOOSTER VACCINE 2021-06-04 00:00:00 Completed [facility] SARS-COV-2 COVID-19 MODERNA 0.25ML BOOSTER VACCINE 2021-06-04 00:00:00 Completed [facility] SARS-COV-2 COVID-19 MODERNA 0.25ML BOOSTER VACCINE 2021-06-04 00:00:00 Completed [facility] SARS-COV-2 COVID-19 MODERNA 0.25ML BOOSTER VACCINE 2021-06-04 00:00:00 Completed [facility] SARS-COV-2 COVID-19 MODERNA 0.25ML BOOSTER VACCINE 2021-06-04 00:00:00 Completed [facility] SARS-COV-2 COVID-19 MODERNA 0.25ML BOOSTER VACCINE 2021-06-04 00:00:00 Completed [facility] SARS-COV-2 COVID-19 MODERNA 0.25ML BOOSTER VACCINE 2021-06-04 00:00:00 Completed [facility] SARS-COV-2 COVID-19 MODERNA 0.25ML BOOSTER VACCINE 2021-06-04 00:00:00 Completed [facility] SARS-COV-2 COVID-19 MODERNA 0.25ML BOOSTER VACCINE 2021-06-04 00:00:00 Completed [facility] SARS-COV-2 COVID-19 MODERNA 0.25ML BOOSTER VACCINE 2021-06-04 00:00:00 Completed [facility] SARS-COV-2 COVID-19 MODERNA 0.25ML BOOSTER VACCINE 2021-06-04 00:00:00 Completed [facility] SARS-COV-2 COVID-19 MODERNA 0.25ML BOOSTER VACCINE 2021-06-04 00:00:00 Completed [facility] SARS-COV-2 COVID-19 MODERNA 0.25ML BOOSTER VACCINE 2021-06-04 00:00:00 Completed [facility] SARS-COV-2 COVID-19 MODERNA 0.25ML BOOSTER VACCINE 2021-06-04 00:00:00 Completed [facility] SARS-COV-2 COVID-19 MODERNA 0.25ML BOOSTER VACCINE 2021-06-04 00:00:00 Completed [facility] SARS-COV-2 COVID-19 MODERNA 0.25ML BOOSTER VACCINE 2021-06-04 00:00:00 Completed [facility] SARS-COV-2 COVID-19 MODERNA 0.25ML BOOSTER VACCINE 2021-06-04 00:00:00 Completed [facility] SARS-COV-2 COVID-19 MODERNA 0.25ML BOOSTER VACCINE 2021-06-04 00:00:00 Completed [facility] SARS-COV-2 COVID-19 MODERNA 0.25ML BOOSTER VACCINE 2021-06-04 00:00:00 Completed [facility] SARS-COV-2 COVID-19 MODERNA VACCINE 2020-09-06 00:00:00 Completed [facility] SARS-COV-2 COVID-19 MODERNA VACCINE 2020-09-06 00:00:00 Completed [facility] SARS-COV-2 COVID-19 MODERNA VACCINE 2020-09-06 00:00:00 Completed [facility] SARS-COV-2 COVID-19 MODERNA VACCINE 2020-09-06 00:00:00 Completed [facility] SARS-COV-2 COVID-19 MODERNA 12+ YRS VACCINE 2020-09-06 00:00:00 Completed [facility] SARS-COV-2 COVID-19 MODERNA 12+ YRS VACCINE 2020-09-06 00:00:00 Completed [facility] SARS-COV-2 COVID-19 MODERNA 12+ YRS VACCINE 2020-09-06 00:00:00 Completed [facility] SARS-COV-2 COVID-19 MODERNA 12+ YRS VACCINE 2020-09-06 00:00:00 Completed [facility] SARS-COV-2 COVID-19 MODERNA 12+ YRS VACCINE 2020-09-06 00:00:00 Completed [facility] SARS-COV-2 COVID-19 MODERNA 12+ YRS VACCINE 2020-09-06 00:00:00 Completed [facility] SARS-COV-2 COVID-19 MODERNA 12+ YRS VACCINE 2020-09-06 00:00:00 Completed [facility] SARS-COV-2 COVID-19 MODERNA 12+ YRS VACCINE 2020-09-06 00:00:00 Completed [facility] SARS-COV-2 COVID-19 MODERNA 12+ YRS VACCINE 2020-09-06 00:00:00 Completed [facility] SARS-COV-2 COVID-19 MODERNA 12+ YRS VACCINE 2020-09-06 00:00:00 Completed [facility] SARS-COV-2 COVID-19 MODERNA 12+ YRS VACCINE 2020-09-06 00:00:00 Completed [facility] SARS-COV-2 COVID-19 MODERNA 12+ YRS VACCINE 2020-09-06 00:00:00 Completed [facility] SARS-COV-2 COVID-19 MODERNA 12+ YRS VACCINE 2020-09-06 00:00:00 Completed [facility] SARS-COV-2 COVID-19 MODERNA 12+ YRS VACCINE 2020-09-06 00:00:00 Completed [facility] SARS-COV-2 COVID-19 MODERNA 12+ YRS VACCINE 2020-09-06 00:00:00 Completed [facility] SARS-COV-2 COVID-19 MODERNA 12+ YRS VACCINE 2020-09-06 00:00:00 Completed [facility] SARS-COV-2 COVID-19 MODERNA 12+ YRS VACCINE 2020-09-06 00:00:00 Completed [facility] SARS-COV-2 COVID-19 MODERNA 12+ YRS VACCINE 2020-09-06 00:00:00 Completed [facility] SARS-COV-2 COVID-19 MODERNA 12+ YRS VACCINE 2020-09-06 00:00:00 Completed [facility] SARS-COV-2 COVID-19 MODERNA 12+ YRS VACCINE 2020-09-06 00:00:00 Completed [facility] SARS-COV-2 COVID-19 MODERNA 12+ YRS VACCINE 2020-09-06 00:00:00 Completed [facility] SARS-COV-2 COVID-19 MODERNA 12+ YRS VACCINE 2020-09-06 00:00:00 Completed [facility] SARS-COV-2 COVID-19 MODERNA 12+ YRS VACCINE 2020-09-06 00:00:00 Completed [facility] SARS-COV-2 COVID-19 MODERNA 12+ YRS VACCINE 2020-09-06 00:00:00 Completed [facility] SARS-COV-2 COVID-19 MODERNA 12+ YRS VACCINE 2020-09-06 00:00:00 Completed [facility] SARS-COV-2 COVID-19 MODERNA 12+ YRS VACCINE 2020-09-06 00:00:00 Completed [facility] SARS-COV-2 COVID-19 MODERNA 12+ YRS VACCINE 2020-09-06 00:00:00 Completed [facility] SARS-COV-2 COVID-19 MODERNA 12+ YRS VACCINE 2020-09-06 00:00:00 Completed [facility] SARS-COV-2 COVID-19 MODERNA 12+ YRS VACCINE 2020-09-06 00:00:00 Completed [facility] SARS-COV-2 COVID-19 MODERNA 12+ YRS VACCINE 2020-09-06 00:00:00 Completed [facility] SARS-COV-2 COVID-19 MODERNA 12+ YRS VACCINE 2020-09-06 00:00:00 Completed [facility] SARS-COV-2 COVID-19 MODERNA 12+ YRS VACCINE 2020-09-06 00:00:00 Completed [facility] SARS-COV-2 COVID-19 MODERNA 12+ YRS VACCINE 2020-09-06 00:00:00 Completed [facility] SARS-COV-2 COVID-19 MODERNA 12+ YRS VACCINE 2020-09-06 00:00:00 Completed [facility] SARS-COV-2 COVID-19 MODERNA 12+ YRS VACCINE 2020-09-06 00:00:00 Completed [facility] SARS-COV-2 COVID-19 MODERNA 12+ YRS VACCINE 2020-09-06 00:00:00 Completed [facility] SARS-COV-2 COVID-19 MODERNA 12+ YRS VACCINE 2020-09-06 00:00:00 Completed [facility] SARS-COV-2 COVID-19 MODERNA 12+ YRS VACCINE 2020-09-06 00:00:00 Completed [facility] SARS-COV-2 COVID-19 MODERNA 12+ YRS VACCINE 2020-09-06 00:00:00 Completed [facility] SARS-COV-2 COVID-19 MODERNA 12+ YRS VACCINE 2020-09-06 00:00:00 Completed [facility] SARS-COV-2 COVID-19 MODERNA 12+ YRS VACCINE 2020-09-06 00:00:00 Completed [facility] SARS-COV-2 COVID-19 MODERNA 12+ YRS VACCINE 2020-09-06 00:00:00 Completed [facility] SARS-COV-2 COVID-19 MODERNA 12+ YRS VACCINE 2020-09-06 00:00:00 Completed [facility] SARS-COV-2 COVID-19 MODERNA 12+ YRS VACCINE 2020-09-06 00:00:00 Completed [facility] SARS-COV-2 COVID-19 MODERNA 12+ YRS VACCINE 2020-09-06 00:00:00 Completed [facility] SARS-COV-2 COVID-19 MODERNA 12+ YRS VACCINE 2020-09-06 00:00:00 Completed [facility] SARS-COV-2 COVID-19 MODERNA 12+ YRS VACCINE 2020-09-06 00:00:00 Completed [facility] SARS-COV-2 COVID-19 MODERNA 12+ YRS VACCINE 2020-09-06 00:00:00 Completed [facility] SARS-COV-2 COVID-19 MODERNA 12+ YRS VACCINE 2020-09-06 00:00:00 Completed [facility] SARS-COV-2 COVID-19 MODERNA 12+ YRS VACCINE 2020-09-06 00:00:00 Completed [facility] SARS-COV-2 COVID-19 MODERNA 12+ YRS VACCINE 2020-09-06 00:00:00 Completed [facility] SARS-COV-2 COVID-19 MODERNA 12+ YRS VACCINE 2020-09-06 00:00:00 Completed [facility] SARS-COV-2 COVID-19 MODERNA 12+ YRS VACCINE 2020-09-06 00:00:00 Completed [facility] SARS-COV-2 COVID-19 MODERNA 12+ YRS VACCINE 2020-09-06 00:00:00 Completed [facility] SARS-COV-2 COVID-19 MODERNA 12+ YRS VACCINE 2020-09-06 00:00:00 Completed [facility] SARS-COV-2 COVID-19 MODERNA 12+ YRS VACCINE 2020-09-06 00:00:00 Completed [facility] SARS-COV-2 COVID-19 MODERNA 12+ YRS VACCINE 2020-09-06 00:00:00 Completed [facility] SARS-COV-2 COVID-19 MODERNA 12+ YRS VACCINE 2020-09-06 00:00:00 Completed [facility] SARS-COV-2 COVID-19 MODERNA 12+ YRS VACCINE 2020-09-06 00:00:00 Completed [facility] SARS-COV-2 COVID-19 MODERNA 12+ YRS VACCINE 2020-09-06 00:00:00 Completed [facility] SARS-COV-2 COVID-19 MODERNA 12+ YRS VACCINE 2020-09-06 00:00:00 Completed [facility] SARS-COV-2 COVID-19 MODERNA 12+ YRS VACCINE 2020-09-06 00:00:00 Completed [facility] SARS-COV-2 COVID-19 MODERNA 12+ YRS VACCINE 2020-09-06 00:00:00 Completed [facility] SARS-COV-2 COVID-19 MODERNA 12+ YRS VACCINE 2020-09-06 00:00:00 Completed [facility] SARS-COV-2 COVID-19 MODERNA 12+ YRS VACCINE 2020-09-06 00:00:00 Completed [facility] SARS-COV-2 COVID-19 MODERNA 12+ YRS VACCINE 2020-09-06 00:00:00 Completed [facility] SARS-COV-2 COVID-19 MODERNA 12+ YRS VACCINE 2020-09-06 00:00:00 Completed [facility] SARS-COV-2 COVID-19 MODERNA 12+ YRS VACCINE 2020-09-06 00:00:00 Completed [facility] SARS-COV-2 COVID-19 MODERNA 12+ YRS VACCINE 2020-09-06 00:00:00 Completed [facility] SARS-COV-2 COVID-19 MODERNA 12+ YRS VACCINE 2020-09-06 00:00:00 Completed [facility] SARS-COV-2 COVID-19 MODERNA 12+ YRS VACCINE 2020-09-06 00:00:00 Completed [facility] SARS-COV-2 COVID-19 MODERNA 12+ YRS VACCINE 2020-09-06 00:00:00 Completed [facility] SARS-COV-2 COVID-19 MODERNA 12+ YRS VACCINE 2020-09-06 00:00:00 Completed [facility] SARS-COV-2 COVID-19 MODERNA 12+ YRS VACCINE 2020-09-06 00:00:00 Completed [facility] SARS-COV-2 COVID-19 MODERNA 12+ YRS VACCINE 2020-09-06 00:00:00 Completed [facility] SARS-COV-2 COVID-19 MODERNA 12+ YRS VACCINE 2020-09-06 00:00:00 Completed [facility] SARS-COV-2 COVID-19 MODERNA 12+ YRS VACCINE 2020-09-06 00:00:00 Completed [facility] SARS-COV-2 COVID-19 MODERNA 12+ YRS VACCINE 2020-09-06 00:00:00 Completed [facility] SARS-COV-2 COVID-19 MODERNA 12+ YRS VACCINE 2020-09-06 00:00:00 Completed [facility] SARS-COV-2 COVID-19 MODERNA 12+ YRS VACCINE 2020-09-06 00:00:00 Completed [facility] SARS-COV-2 COVID-19 MODERNA 12+ YRS VACCINE 2020-09-06 00:00:00 Completed [facility] SARS-COV-2 COVID-19 MODERNA 12+ YRS VACCINE 2020-09-06 00:00:00 Completed [facility] SARS-COV-2 COVID-19 MODERNA 12+ YRS VACCINE 2020-09-06 00:00:00 Completed [facility] SARS-COV-2 COVID-19 MODERNA 12+ YRS VACCINE 2020-09-06 00:00:00 Completed [facility] SARS-COV-2 COVID-19 MODERNA 12+ YRS VACCINE 2020-09-06 00:00:00 Completed [facility] SARS-COV-2 COVID-19 MODERNA 12+ YRS VACCINE 2020-09-06 00:00:00 Completed [facility] SARS-COV-2 COVID-19 MODERNA 12+ YRS VACCINE 2020-09-06 00:00:00 Completed [facility] SARS-COV-2 COVID-19 MODERNA 12+ YRS VACCINE 2020-09-06 00:00:00 Completed [facility] SARS-COV-2 COVID-19 MODERNA 12+ YRS VACCINE 2020-09-06 00:00:00 Completed [facility] SARS-COV-2 COVID-19 MODERNA 12+ YRS VACCINE 2020-09-06 00:00:00 Completed [facility] SARS-COV-2 COVID-19 MODERNA 12+ YRS VACCINE 2020-09-06 00:00:00 Completed [facility] SARS-COV-2 COVID-19 MODERNA 12+ YRS VACCINE 2020-09-06 00:00:00 Completed [facility] SARS-COV-2 COVID-19 MODERNA 12+ YRS VACCINE 2020-09-06 00:00:00 Completed [facility] SARS-COV-2 COVID-19 MODERNA 12+ YRS VACCINE 2020-09-06 00:00:00 Completed [facility] SARS-COV-2 COVID-19 MODERNA 12+ YRS VACCINE 2020-09-06 00:00:00 Completed [facility] SARS-COV-2 COVID-19 MODERNA 12+ YRS VACCINE 2020-09-06 00:00:00 Completed [facility] SARS-COV-2 COVID-19 MODERNA 12+ YRS VACCINE 2020-09-06 00:00:00 Completed [facility] SARS-COV-2 COVID-19 MODERNA 12+ YRS VACCINE 2020-09-06 00:00:00 Completed [facility] SARS-COV-2 COVID-19 MODERNA 12+ YRS VACCINE 2020-09-06 00:00:00 Completed [facility] SARS-COV-2 COVID-19 MODERNA 12+ YRS VACCINE 2020-09-06 00:00:00 Completed [facility] SARS-COV-2 COVID-19 MODERNA 12+ YRS VACCINE 2020-09-06 00:00:00 Completed [facility] SARS-COV-2 COVID-19 MODERNA 12+ YRS VACCINE 2020-09-06 00:00:00 Completed [facility] SARS-COV-2 COVID-19 MODERNA 12+ YRS VACCINE 2020-09-06 00:00:00 Completed [facility] SARS-COV-2 COVID-19 MODERNA 12+ YRS VACCINE 2020-09-06 00:00:00 Completed [facility] SARS-COV-2 COVID-19 MODERNA 12+ YRS VACCINE 2020-09-06 00:00:00 Completed [facility] SARS-COV-2 COVID-19 MODERNA 12+ YRS VACCINE 2020-09-06 00:00:00 Completed [facility] SARS-COV-2 COVID-19 MODERNA 12+ YRS VACCINE 2020-09-06 00:00:00 Completed [facility] SARS-COV-2 COVID-19 MODERNA 12+ YRS VACCINE 2020-09-06 00:00:00 Completed [facility] SARS-COV-2 COVID-19 MODERNA 12+ YRS VACCINE 2020-09-06 00:00:00 Completed [facility] SARS-COV-2 COVID-19 MODERNA 12+ YRS VACCINE 2020-09-06 00:00:00 Completed [facility] SARS-COV-2 COVID-19 MODERNA 12+ YRS VACCINE 2020-09-06 00:00:00 Completed [facility] SARS-COV-2 COVID-19 MODERNA 12+ YRS VACCINE 2020-09-06 00:00:00 Completed [facility] SARS-COV-2 COVID-19 MODERNA 12+ YRS VACCINE 2020-09-06 00:00:00 Completed [facility] SARS-COV-2 COVID-19 MODERNA 12+ YRS VACCINE 2020-09-06 00:00:00 Completed [facility] SARS-COV-2 COVID-19 MODERNA 12+ YRS VACCINE 2020-09-06 00:00:00 Completed [facility] SARS-COV-2 COVID-19 MODERNA 12+ YRS VACCINE 2020-09-06 00:00:00 Completed [facility] SARS-COV-2 COVID-19 MODERNA 12+ YRS VACCINE 2020-09-06 00:00:00 Completed [facility] SARS-COV-2 COVID-19 MODERNA 12+ YRS VACCINE 2020-09-06 00:00:00 Completed [facility] SARS-COV-2 COVID-19 MODERNA 12+ YRS VACCINE 2020-09-06 00:00:00 Completed [facility] SARS-COV-2 COVID-19 MODERNA 12+ YRS VACCINE 2020-09-06 00:00:00 Completed [facility] SARS-COV-2 COVID-19 MODERNA 12+ YRS VACCINE 2020-09-06 00:00:00 Completed [facility] SARS-COV-2 COVID-19 MODERNA 12+ YRS VACCINE 2020-09-06 00:00:00 Completed [facility] SARS-COV-2 COVID-19 MODERNA 12+ YRS VACCINE 2020-09-06 00:00:00 Completed [facility] SARS-COV-2 COVID-19 MODERNA 12+ YRS VACCINE 2020-09-06 00:00:00 Completed [facility] SARS-COV-2 COVID-19 MODERNA 12+ YRS VACCINE 2020-09-06 00:00:00 Completed [facility] SARS-COV-2 COVID-19 MODERNA 12+ YRS VACCINE 2020-09-06 00:00:00 Completed [facility] SARS-COV-2 COVID-19 MODERNA 12+ YRS VACCINE 2020-09-06 00:00:00 Completed [facility] SARS-COV-2 COVID-19 MODERNA 12+ YRS VACCINE 2020-09-06 00:00:00 Completed [facility] SARS-COV-2 COVID-19 MODERNA 12+ YRS VACCINE 2020-09-06 00:00:00 Completed [facility] SARS-COV-2 COVID-19 MODERNA 12+ YRS VACCINE 2020-09-06 00:00:00 Completed [facility] SARS-COV-2 COVID-19 MODERNA 12+ YRS VACCINE 2020-09-06 00:00:00 Completed [facility] SARS-COV-2 COVID-19 MODERNA 12+ YRS VACCINE 2020-09-06 00:00:00 Completed [facility] SARS-COV-2 COVID-19 MODERNA 12+ YRS VACCINE 2020-09-06 00:00:00 Completed [facility] SARS-COV-2 COVID-19 MODERNA 12+ YRS VACCINE 2020-09-06 00:00:00 Completed [facility] SARS-COV-2 COVID-19 MODERNA 12+ YRS VACCINE 2020-09-06 00:00:00 Completed [facility] SARS-COV-2 COVID-19 MODERNA 12+ YRS VACCINE 2020-09-06 00:00:00 Completed [facility] SARS-COV-2 COVID-19 MODERNA 12+ YRS VACCINE 2020-09-06 00:00:00 Completed [facility] SARS-COV-2 COVID-19 MODERNA 12+ YRS VACCINE 2020-09-06 00:00:00 Completed [facility] SARS-COV-2 COVID-19 MODERNA 12+ YRS VACCINE 2020-09-06 00:00:00 Completed [facility] SARS-COV-2 COVID-19 MODERNA 12+ YRS VACCINE 2020-09-06 00:00:00 Completed [facility] SARS-COV-2 COVID-19 MODERNA 12+ YRS VACCINE 2020-09-06 00:00:00 Completed [facility] SARS-COV-2 COVID-19 MODERNA 12+ YRS VACCINE 2020-09-06 00:00:00 Completed [facility] SARS-COV-2 COVID-19 MODERNA 12+ YRS VACCINE 2020-09-06 00:00:00 Completed [facility] SARS-COV-2 COVID-19 MODERNA 12+ YRS VACCINE 2020-09-06 00:00:00 Completed [facility] SARS-COV-2 COVID-19 MODERNA 12+ YRS VACCINE 2020-09-06 00:00:00 Completed [facility] SARS-COV-2 COVID-19 MODERNA VACCINE 2020-08-09 00:00:00 Completed [facility] SARS-COV-2 COVID-19 MODERNA VACCINE 2020-08-09 00:00:00 Completed [facility] SARS-COV-2 COVID-19 MODERNA VACCINE 2020-08-09 00:00:00 Completed [facility] SARS-COV-2 COVID-19 MODERNA VACCINE 2020-08-09 00:00:00 Completed [facility] SARS-COV-2 COVID-19 MODERNA 12+ YRS VACCINE 2020-08-09 00:00:00 Completed [facility] SARS-COV-2 COVID-19 MODERNA 12+ YRS VACCINE 2020-08-09 00:00:00 Completed [facility] SARS-COV-2 COVID-19 MODERNA 12+ YRS VACCINE 2020-08-09 00:00:00 Completed [facility] SARS-COV-2 COVID-19 MODERNA 12+ YRS VACCINE 2020-08-09 00:00:00 Completed [facility] SARS-COV-2 COVID-19 MODERNA 12+ YRS VACCINE 2020-08-09 00:00:00 Completed [facility] SARS-COV-2 COVID-19 MODERNA 12+ YRS VACCINE 2020-08-09 00:00:00 Completed [facility] SARS-COV-2 COVID-19 MODERNA 12+ YRS VACCINE 2020-08-09 00:00:00 Completed [facility] SARS-COV-2 COVID-19 MODERNA 12+ YRS VACCINE 2020-08-09 00:00:00 Completed [facility] SARS-COV-2 COVID-19 MODERNA 12+ YRS VACCINE 2020-08-09 00:00:00 Completed [facility] SARS-COV-2 COVID-19 MODERNA 12+ YRS VACCINE 2020-08-09 00:00:00 Completed [facility] SARS-COV-2 COVID-19 MODERNA 12+ YRS VACCINE 2020-08-09 00:00:00 Completed [facility] SARS-COV-2 COVID-19 MODERNA 12+ YRS VACCINE 2020-08-09 00:00:00 Completed [facility] SARS-COV-2 COVID-19 MODERNA 12+ YRS VACCINE 2020-08-09 00:00:00 Completed [facility] SARS-COV-2 COVID-19 MODERNA 12+ YRS VACCINE 2020-08-09 00:00:00 Completed [facility] SARS-COV-2 COVID-19 MODERNA 12+ YRS VACCINE 2020-08-09 00:00:00 Completed [facility] SARS-COV-2 COVID-19 MODERNA 12+ YRS VACCINE 2020-08-09 00:00:00 Completed [facility] SARS-COV-2 COVID-19 MODERNA 12+ YRS VACCINE 2020-08-09 00:00:00 Completed [facility] SARS-COV-2 COVID-19 MODERNA 12+ YRS VACCINE 2020-08-09 00:00:00 Completed [facility] SARS-COV-2 COVID-19 MODERNA 12+ YRS VACCINE 2020-08-09 00:00:00 Completed [facility] SARS-COV-2 COVID-19 MODERNA 12+ YRS VACCINE 2020-08-09 00:00:00 Completed [facility] SARS-COV-2 COVID-19 MODERNA 12+ YRS VACCINE 2020-08-09 00:00:00 Completed [facility] SARS-COV-2 COVID-19 MODERNA 12+ YRS VACCINE 2020-08-09 00:00:00 Completed [facility] SARS-COV-2 COVID-19 MODERNA 12+ YRS VACCINE 2020-08-09 00:00:00 Completed [facility] SARS-COV-2 COVID-19 MODERNA 12+ YRS VACCINE 2020-08-09 00:00:00 Completed [facility] SARS-COV-2 COVID-19 MODERNA 12+ YRS VACCINE 2020-08-09 00:00:00 Completed [facility] SARS-COV-2 COVID-19 MODERNA 12+ YRS VACCINE 2020-08-09 00:00:00 Completed [facility] SARS-COV-2 COVID-19 MODERNA 12+ YRS VACCINE 2020-08-09 00:00:00 Completed [facility] SARS-COV-2 COVID-19 MODERNA 12+ YRS VACCINE 2020-08-09 00:00:00 Completed [facility] SARS-COV-2 COVID-19 MODERNA 12+ YRS VACCINE 2020-08-09 00:00:00 Completed [facility] SARS-COV-2 COVID-19 MODERNA 12+ YRS VACCINE 2020-08-09 00:00:00 Completed [facility] SARS-COV-2 COVID-19 MODERNA 12+ YRS VACCINE 2020-08-09 00:00:00 Completed [facility] SARS-COV-2 COVID-19 MODERNA 12+ YRS VACCINE 2020-08-09 00:00:00 Completed [facility] SARS-COV-2 COVID-19 MODERNA 12+ YRS VACCINE 2020-08-09 00:00:00 Completed [facility] SARS-COV-2 COVID-19 MODERNA 12+ YRS VACCINE 2020-08-09 00:00:00 Completed [facility] SARS-COV-2 COVID-19 MODERNA 12+ YRS VACCINE 2020-08-09 00:00:00 Completed [facility] SARS-COV-2 COVID-19 MODERNA 12+ YRS VACCINE 2020-08-09 00:00:00 Completed [facility] SARS-COV-2 COVID-19 MODERNA 12+ YRS VACCINE 2020-08-09 00:00:00 Completed [facility] SARS-COV-2 COVID-19 MODERNA 12+ YRS VACCINE 2020-08-09 00:00:00 Completed [facility] SARS-COV-2 COVID-19 MODERNA 12+ YRS VACCINE 2020-08-09 00:00:00 Completed [facility] SARS-COV-2 COVID-19 MODERNA 12+ YRS VACCINE 2020-08-09 00:00:00 Completed [facility] SARS-COV-2 COVID-19 MODERNA 12+ YRS VACCINE 2020-08-09 00:00:00 Completed [facility] SARS-COV-2 COVID-19 MODERNA 12+ YRS VACCINE 2020-08-09 00:00:00 Completed [facility] SARS-COV-2 COVID-19 MODERNA 12+ YRS VACCINE 2020-08-09 00:00:00 Completed [facility] SARS-COV-2 COVID-19 MODERNA 12+ YRS VACCINE 2020-08-09 00:00:00 Completed [facility] SARS-COV-2 COVID-19 MODERNA 12+ YRS VACCINE 2020-08-09 00:00:00 Completed [facility] SARS-COV-2 COVID-19 MODERNA 12+ YRS VACCINE 2020-08-09 00:00:00 Completed [facility] [facility] SARS-COV-2 COVID-19 MODERNA 12+ YRS VACCINE 2020-08-09 00:00:00 Completed [facility] SARS-COV-2 COVID-19 MODERNA 12+ YRS VACCINE 2020-08-09 00:00:00 Completed [facility] SARS-COV-2 COVID-19 MODERNA 12+ YRS VACCINE 2020-08-09 00:00:00 Completed [facility] SARS-COV-2 COVID-19 MODERNA 12+ YRS VACCINE 2020-08-09 00:00:00 Completed [facility] SARS-COV-2 COVID-19 MODERNA 12+ YRS VACCINE 2020-08-09 00:00:00 Completed [facility] SARS-COV-2 COVID-19 MODERNA 12+ YRS VACCINE 2020-08-09 00:00:00 Completed [facility] SARS-COV-2 COVID-19 MODERNA 12+ YRS VACCINE 2020-08-09 00:00:00 Completed [facility] SARS-COV-2 COVID-19 MODERNA 12+ YRS VACCINE 2020-08-09 00:00:00 Completed [facility] SARS-COV-2 COVID-19 MODERNA 12+ YRS VACCINE 2020-08-09 00:00:00 Completed [facility] SARS-COV-2 COVID-19 MODERNA 12+ YRS VACCINE 2020-08-09 00:00:00 Completed [facility] SARS-COV-2 COVID-19 MODERNA 12+ YRS VACCINE 2020-08-09 00:00:00 Completed [facility] SARS-COV-2 COVID-19 MODERNA 12+ YRS VACCINE 2020-08-09 00:00:00 Completed [facility] SARS-COV-2 COVID-19 MODERNA 12+ YRS VACCINE 2020-08-09 00:00:00 Completed [facility] SARS-COV-2 COVID-19 MODERNA 12+ YRS VACCINE 2020-08-09 00:00:00 Completed [facility] SARS-COV-2 COVID-19 MODERNA 12+ YRS VACCINE 2020-08-09 00:00:00 Completed [facility] SARS-COV-2 COVID-19 MODERNA 12+ YRS VACCINE 2020-08-09 00:00:00 Completed [facility] SARS-COV-2 COVID-19 MODERNA 12+ YRS VACCINE 2020-08-09 00:00:00 Completed [facility] SARS-COV-2 COVID-19 MODERNA 12+ YRS VACCINE 2020-08-09 00:00:00 Completed [facility] SARS-COV-2 COVID-19 MODERNA 12+ YRS VACCINE 2020-08-09 00:00:00 Completed [facility] SARS-COV-2 COVID-19 MODERNA 12+ YRS VACCINE 2020-08-09 00:00:00 Completed [facility] SARS-COV-2 COVID-19 MODERNA 12+ YRS VACCINE 2020-08-09 00:00:00 Completed [facility] SARS-COV-2 COVID-19 MODERNA 12+ YRS VACCINE 2020-08-09 00:00:00 Completed [facility] SARS-COV-2 COVID-19 MODERNA 12+ YRS VACCINE 2020-08-09 00:00:00 Completed [facility] SARS-COV-2 COVID-19 MODERNA 12+ YRS VACCINE 2020-08-09 00:00:00 Completed [facility] SARS-COV-2 COVID-19 MODERNA 12+ YRS VACCINE 2020-08-09 00:00:00 Completed [facility] SARS-COV-2 COVID-19 MODERNA 12+ YRS VACCINE 2020-08-09 00:00:00 Completed [facility] SARS-COV-2 COVID-19 MODERNA 12+ YRS VACCINE 2020-08-09 00:00:00 Completed [facility] SARS-COV-2 COVID-19 MODERNA 12+ YRS VACCINE 2020-08-09 00:00:00 Completed [facility] SARS-COV-2 COVID-19 MODERNA 12+ YRS VACCINE 2020-08-09 00:00:00 Completed [facility] SARS-COV-2 COVID-19 MODERNA 12+ YRS VACCINE 2020-08-09 00:00:00 Completed [facility] SARS-COV-2 COVID-19 MODERNA 12+ YRS VACCINE 2020-08-09 00:00:00 Completed [facility] SARS-COV-2 COVID-19 MODERNA 12+ YRS VACCINE 2020-08-09 00:00:00 Completed [facility] SARS-COV-2 COVID-19 MODERNA 12+ YRS VACCINE 2020-08-09 00:00:00 Completed [facility] SARS-COV-2 COVID-19 MODERNA 12+ YRS VACCINE 2020-08-09 00:00:00 Completed [facility] SARS-COV-2 COVID-19 MODERNA 12+ YRS VACCINE 2020-08-09 00:00:00 Completed [facility] SARS-COV-2 COVID-19 MODERNA 12+ YRS VACCINE 2020-08-09 00:00:00 Completed [facility] SARS-COV-2 COVID-19 MODERNA 12+ YRS VACCINE 2020-08-09 00:00:00 Completed [facility] SARS-COV-2 COVID-19 MODERNA 12+ YRS VACCINE 2020-08-09 00:00:00 Completed [facility] SARS-COV-2 COVID-19 MODERNA 12+ YRS VACCINE 2020-08-09 00:00:00 Completed [facility] SARS-COV-2 COVID-19 MODERNA 12+ YRS VACCINE 2020-08-09 00:00:00 Completed [facility] SARS-COV-2 COVID-19 MODERNA 12+ YRS VACCINE 2020-08-09 00:00:00 Completed [facility] SARS-COV-2 COVID-19 MODERNA 12+ YRS VACCINE 2020-08-09 00:00:00 Completed [facility] SARS-COV-2 COVID-19 MODERNA 12+ YRS VACCINE 2020-08-09 00:00:00 Completed [facility] SARS-COV-2 COVID-19 MODERNA 12+ YRS VACCINE 2020-08-09 00:00:00 Completed [facility] SARS-COV-2 COVID-19 MODERNA 12+ YRS VACCINE 2020-08-09 00:00:00 Completed [facility] SARS-COV-2 COVID-19 MODERNA 12+ YRS VACCINE 2020-08-09 00:00:00 Completed [facility] SARS-COV-2 COVID-19 MODERNA 12+ YRS VACCINE 2020-08-09 00:00:00 Completed [facility] SARS-COV-2 COVID-19 MODERNA 12+ YRS VACCINE 2020-08-09 00:00:00 Completed [facility] SARS-COV-2 COVID-19 MODERNA 12+ YRS VACCINE 2020-08-09 00:00:00 Completed [facility] SARS-COV-2 COVID-19 MODERNA 12+ YRS VACCINE 2020-08-09 00:00:00 Completed [facility] SARS-COV-2 COVID-19 MODERNA 12+ YRS VACCINE 2020-08-09 00:00:00 Completed [facility] SARS-COV-2 COVID-19 MODERNA 12+ YRS VACCINE 2020-08-09 00:00:00 Completed [facility] SARS-COV-2 COVID-19 MODERNA 12+ YRS VACCINE 2020-08-09 00:00:00 Completed [facility] SARS-COV-2 COVID-19 MODERNA 12+ YRS VACCINE 2020-08-09 00:00:00 Completed [facility] SARS-COV-2 COVID-19 MODERNA 12+ YRS VACCINE 2020-08-09 00:00:00 Completed [facility] SARS-COV-2 COVID-19 MODERNA 12+ YRS VACCINE 2020-08-09 00:00:00 Completed [facility] SARS-COV-2 COVID-19 MODERNA 12+ YRS VACCINE 2020-08-09 00:00:00 Completed [facility] SARS-COV-2 COVID-19 MODERNA 12+ YRS VACCINE 2020-08-09 00:00:00 Completed [facility] SARS-COV-2 COVID-19 MODERNA 12+ YRS VACCINE 2020-08-09 00:00:00 Completed [facility] SARS-COV-2 COVID-19 MODERNA 12+ YRS VACCINE 2020-08-09 00:00:00 Completed [facility] SARS-COV-2 COVID-19 MODERNA 12+ YRS VACCINE 2020-08-09 00:00:00 Completed [facility] SARS-COV-2 COVID-19 MODERNA 12+ YRS VACCINE 2020-08-09 00:00:00 Completed [facility] SARS-COV-2 COVID-19 MODERNA 12+ YRS VACCINE 2020-08-09 00:00:00 Completed [facility] SARS-COV-2 COVID-19 MODERNA 12+ YRS VACCINE 2020-08-09 00:00:00 Completed [facility] SARS-COV-2 COVID-19 MODERNA 12+ YRS VACCINE 2020-08-09 00:00:00 Completed [facility] SARS-COV-2 COVID-19 MODERNA 12+ YRS VACCINE 2020-08-09 00:00:00 Completed [facility] SARS-COV-2 COVID-19 MODERNA 12+ YRS VACCINE 2020-08-09 00:00:00 Completed [facility] SARS-COV-2 COVID-19 MODERNA 12+ YRS VACCINE 2020-08-09 00:00:00 Completed [facility] SARS-COV-2 COVID-19 MODERNA 12+ YRS VACCINE 2020-08-09 00:00:00 Completed [facility] SARS-COV-2 COVID-19 MODERNA 12+ YRS VACCINE 2020-08-09 00:00:00 Completed [facility] SARS-COV-2 COVID-19 MODERNA 12+ YRS VACCINE 2020-08-09 00:00:00 Completed [facility] SARS-COV-2 COVID-19 MODERNA 12+ YRS VACCINE 2020-08-09 00:00:00 Completed [facility] SARS-COV-2 COVID-19 MODERNA 12+ YRS VACCINE 2020-08-09 00:00:00 Completed [facility] SARS-COV-2 COVID-19 MODERNA 12+ YRS VACCINE 2020-08-09 00:00:00 Completed [facility] SARS-COV-2 COVID-19 MODERNA 12+ YRS VACCINE 2020-08-09 00:00:00 Completed [facility] SARS-COV-2 COVID-19 MODERNA 12+ YRS VACCINE 2020-08-09 00:00:00 Completed [facility] SARS-COV-2 COVID-19 MODERNA 12+ YRS VACCINE 2020-08-09 00:00:00 Completed [facility] SARS-COV-2 COVID-19 MODERNA 12+ YRS VACCINE 2020-08-09 00:00:00 Completed [facility] SARS-COV-2 COVID-19 MODERNA 12+ YRS VACCINE 2020-08-09 00:00:00 Completed [facility] SARS-COV-2 COVID-19 MODERNA 12+ YRS VACCINE 2020-08-09 00:00:00 Completed [facility] SARS-COV-2 COVID-19 MODERNA 12+ YRS VACCINE 2020-08-09 00:00:00 Completed [facility] SARS-COV-2 COVID-19 MODERNA 12+ YRS VACCINE 2020-08-09 00:00:00 Completed [facility] SARS-COV-2 COVID-19 MODERNA 12+ YRS VACCINE 2020-08-09 00:00:00 Completed [facility] SARS-COV-2 COVID-19 MODERNA 12+ YRS VACCINE 2020-08-09 00:00:00 Completed [facility] SARS-COV-2 COVID-19 MODERNA 12+ YRS VACCINE 2020-08-09 00:00:00 Completed [facility] SARS-COV-2 COVID-19 MODERNA 12+ YRS VACCINE 2020-08-09 00:00:00 Completed [facility] SARS-COV-2 COVID-19 MODERNA 12+ YRS VACCINE 2020-08-09 00:00:00 Completed [facility] SARS-COV-2 COVID-19 MODERNA 12+ YRS VACCINE 2020-08-09 00:00:00 Completed [facility] SARS-COV-2 COVID-19 MODERNA 12+ YRS VACCINE 2020-08-09 00:00:00 Completed [facility] SARS-COV-2 COVID-19 MODERNA 12+ YRS VACCINE 2020-08-09 00:00:00 Completed [facility] SARS-COV-2 COVID-19 MODERNA 12+ YRS VACCINE 2020-08-09 00:00:00 Completed [facility] SARS-COV-2 COVID-19 MODERNA 12+ YRS VACCINE 2020-08-09 00:00:00 Completed [facility] SARS-COV-2 COVID-19 MODERNA 12+ YRS VACCINE 2020-08-09 00:00:00 Completed [facility] SARS-COV-2 COVID-19 MODERNA 12+ YRS VACCINE 2020-08-09 00:00:00 Completed [facility] SARS-COV-2 COVID-19 MODERNA 12+ YRS VACCINE 2020-08-09 00:00:00 Completed [facility] SARS-COV-2 COVID-19 MODERNA 12+ YRS VACCINE 2020-08-09 00:00:00 Completed [facility] SARS-COV-2 COVID-19 MODERNA 12+ YRS VACCINE 2020-08-09 00:00:00 Completed [facility] SARS-COV-2 COVID-19 MODERNA 12+ YRS VACCINE 2020-08-09 00:00:00 Completed [facility] SARS-COV-2 COVID-19 MODERNA 12+ YRS VACCINE 2020-08-09 00:00:00 Completed [facility] Pneumococcal Polysaccharide, PPSV23 (PNEUMOVAX) 2020-06-15 00:00:00 Completed [facility] Influenza Virus Vaccine Quad .5 mL IM 6+ MO 2020-06-15 00:00:00 Completed [facility] Pneumococcal Polysaccharide, PPSV23 (PNEUMOVAX) 2020-06-15 00:00:00 Completed [facility] Influenza Virus Vaccine Quad .5 mL IM 6+ MO 2020-06-15 00:00:00 Completed [facility] Pneumococcal Polysaccharide, PPSV23 (PNEUMOVAX) 2020-06-15 00:00:00 Completed [facility] Influenza Virus Vaccine Quad .5 mL IM 6+ MO 2020-06-15 00:00:00 Completed [facility] Pneumococcal Polysaccharide, PPSV23 (PNEUMOVAX) 2020-06-15 00:00:00 Completed [facility] Influenza Virus Vaccine Quad .5 mL IM 6+ MO 2020-06-15 00:00:00 Completed [facility] Pneumococcal Polysaccharide, PPSV23 (PNEUMOVAX) 2020-06-15 00:00:00 Completed [facility] Influenza Virus Vaccine Quad .5 mL IM 6+ MO 2020-06-15 00:00:00 Completed [facility] Pneumococcal Polysaccharide, PPSV23 (PNEUMOVAX) 2020-06-15 00:00:00 Completed [facility] Influenza Virus Vaccine Quad .5 mL IM 6+ MO 2020-06-15 00:00:00 Completed [facility] Pneumococcal Polysaccharide, PPSV23 (PNEUMOVAX) 2020-06-15 00:00:00 Completed [facility] Influenza Virus Vaccine Quad .5 mL IM 6+ MO 2020-06-15 00:00:00 Completed [facility] Pneumococcal Polysaccharide, PPSV23 (PNEUMOVAX) 2020-06-15 00:00:00 Completed [facility] Influenza Virus Vaccine Quad .5 mL IM 6+ MO 2020-06-15 00:00:00 Completed [facility] Pneumococcal Polysaccharide, PPSV23 (PNEUMOVAX) 2020-06-15 00:00:00 Completed [facility] Influenza Virus Vaccine Quad .5 mL IM 6+ MO 2020-06-15 00:00:00 Completed [facility] Pneumococcal Polysaccharide, PPSV23 (PNEUMOVAX) 2020-06-15 00:00:00 Completed [facility] Influenza Virus Vaccine Quad .5 mL IM 6+ MO 2020-06-15 00:00:00 Completed [facility] Pneumococcal Polysaccharide, PPSV23 (PNEUMOVAX) 2020-06-15 00:00:00 Completed [facility] Influenza Virus Vaccine Quad .5 mL IM 6+ MO 2020-06-15 00:00:00 Completed [facility] Pneumococcal Polysaccharide, PPSV23 (PNEUMOVAX) 2020-06-15 00:00:00 Completed [facility] Influenza Virus Vaccine Quad .5 mL IM 6+ MO 2020-06-15 00:00:00 Completed [facility] Pneumococcal Polysaccharide, PPSV23 (PNEUMOVAX) 2020-06-15 00:00:00 Completed [facility] Influenza Virus Vaccine Quad .5 mL IM 6+ MO 2020-06-15 00:00:00 Completed [facility] Pneumococcal Polysaccharide, PPSV23 (PNEUMOVAX) 2020-06-15 00:00:00 Completed [facility] Influenza Virus Vaccine Quad .5 mL IM 6+ MO 2020-06-15 00:00:00 Completed [facility] Pneumococcal Polysaccharide, PPSV23 (PNEUMOVAX) 2020-06-15 00:00:00 Completed [facility] Influenza Virus Vaccine Quad .5 mL IM 6+ MO 2020-06-15 00:00:00 Completed [facility] Pneumococcal Polysaccharide, PPSV23 (PNEUMOVAX) 2020-06-15 00:00:00 Completed [facility] Influenza Virus Vaccine Quad .5 mL IM 6+ MO 2020-06-15 00:00:00 Completed [facility] Pneumococcal Polysaccharide, PPSV23 (PNEUMOVAX) 2020-06-15 00:00:00 Completed [facility] Influenza Virus Vaccine Quad .5 mL IM 6+ MO 2020-06-15 00:00:00 Completed [facility] Pneumococcal Polysaccharide, PPSV23 (PNEUMOVAX) 2020-06-15 00:00:00 Completed [facility] Influenza Virus Vaccine Quad .5 mL IM 6+ MO 2020-06-15 00:00:00 Completed [facility] Pneumococcal Polysaccharide, PPSV23 (PNEUMOVAX) 2020-06-15 00:00:00 Completed [facility] Influenza Virus Vaccine Quad .5 mL IM 6+ MO 2020-06-15 00:00:00 Completed [facility] Pneumococcal Polysaccharide, PPSV23 (PNEUMOVAX) 2020-06-15 00:00:00 Completed [facility] Influenza Virus Vaccine Quad .5 mL IM 6+ MO 2020-06-15 00:00:00 Completed [facility] Pneumococcal Polysaccharide, PPSV23 (PNEUMOVAX) 2020-06-15 00:00:00 Completed [facility] Influenza Virus Vaccine Quad .5 mL IM 6+ MO 2020-06-15 00:00:00 Completed [facility] Pneumococcal Polysaccharide, PPSV23 (PNEUMOVAX) 2020-06-15 00:00:00 Completed [facility] Influenza Virus Vaccine Quad .5 mL IM 6+ MO 2020-06-15 00:00:00 Completed [facility] Pneumococcal Polysaccharide, PPSV23 (PNEUMOVAX) 2020-06-15 00:00:00 Completed [facility] Influenza Virus Vaccine Quad .5 mL IM 6+ MO 2020-06-15 00:00:00 Completed [facility] Pneumococcal Polysaccharide, PPSV23 (PNEUMOVAX) 2020-06-15 00:00:00 Completed [facility] Influenza Virus Vaccine Quad .5 mL IM 6+ MO 2020-06-15 00:00:00 Completed [facility] Pneumococcal Polysaccharide, PPSV23 (PNEUMOVAX) 2020-06-15 00:00:00 Completed [facility] Influenza Virus Vaccine Quad .5 mL IM 6+ MO 2020-06-15 00:00:00 Completed [facility] Pneumococcal Polysaccharide, PPSV23 (PNEUMOVAX) 2020-06-15 00:00:00 Completed [facility] Influenza Virus Vaccine Quad .5 mL IM 6+ MO 2020-06-15 00:00:00 Completed [facility] Pneumococcal Polysaccharide, PPSV23 (PNEUMOVAX) 2020-06-15 00:00:00 Completed [facility] Influenza Virus Vaccine Quad .5 mL IM 6+ MO 2020-06-15 00:00:00 Completed [facility] Pneumococcal Polysaccharide, PPSV23 (PNEUMOVAX) 2020-06-15 00:00:00 Completed [facility] Influenza Virus Vaccine Quad .5 mL IM 6+ MO 2020-06-15 00:00:00 Completed [facility] Pneumococcal Polysaccharide, PPSV23 (PNEUMOVAX) 2020-06-15 00:00:00 Completed [facility] Influenza Virus Vaccine Quad .5 mL IM 6+ MO 2020-06-15 00:00:00 Completed [facility] Pneumococcal Polysaccharide, PPSV23 (PNEUMOVAX) 2020-06-15 00:00:00 Completed [facility] Influenza Virus Vaccine Quad .5 mL IM 6+ MO 2020-06-15 00:00:00 Completed [facility] Pneumococcal Polysaccharide, PPSV23 (PNEUMOVAX) 2020-06-15 00:00:00 Completed [facility] Influenza Virus Vaccine Quad .5 mL IM 6+ MO 2020-06-15 00:00:00 Completed [facility] Pneumococcal Polysaccharide, PPSV23 (PNEUMOVAX) 2020-06-15 00:00:00 Completed [facility] Influenza Virus Vaccine Quad .5 mL IM 6+ MO 2020-06-15 00:00:00 Completed [facility] Pneumococcal Polysaccharide, PPSV23 (PNEUMOVAX) 2020-06-15 00:00:00 Completed [facility] Influenza Virus Vaccine Quad .5 mL IM 6+ MO 2020-06-15 00:00:00 Completed [facility] Pneumococcal Polysaccharide, PPSV23 (PNEUMOVAX) 2020-06-15 00:00:00 Completed [facility] Influenza Virus Vaccine Quad .5 mL IM 6+ MO 2020-06-15 00:00:00 Completed [facility] Pneumococcal Polysaccharide, PPSV23 (PNEUMOVAX) 2020-06-15 00:00:00 Completed [facility] Influenza Virus Vaccine Quad .5 mL IM 6+ MO 2020-06-15 00:00:00 Completed [facility] Pneumococcal Polysaccharide, PPSV23 (PNEUMOVAX) 2020-06-15 00:00:00 Completed [facility] Influenza Virus Vaccine Quad .5 mL IM 6+ MO 2020-06-15 00:00:00 Completed [facility] Pneumococcal Polysaccharide, PPSV23 (PNEUMOVAX) 2020-06-15 00:00:00 Completed [facility] Influenza Virus Vaccine Quad .5 mL IM 6+ MO 2020-06-15 00:00:00 Completed [facility] Pneumococcal Polysaccharide, PPSV23 (PNEUMOVAX) 2020-06-15 00:00:00 Completed [facility] Influenza Virus Vaccine Quad .5 mL IM 6+ MO 2020-06-15 00:00:00 Completed [facility] Pneumococcal Polysaccharide, PPSV23 (PNEUMOVAX) 2020-06-15 00:00:00 Completed [facility] Influenza Virus Vaccine Quad .5 mL IM 6+ MO 2020-06-15 00:00:00 Completed [facility] Pneumococcal Polysaccharide, PPSV23 (PNEUMOVAX) 2020-06-15 00:00:00 Completed [facility] Influenza Virus Vaccine Quad .5 mL IM 6+ MO 2020-06-15 00:00:00 Completed [facility] Pneumococcal Polysaccharide, PPSV23 (PNEUMOVAX) 2020-06-15 00:00:00 Completed [facility] Influenza Virus Vaccine Quad .5 mL IM 6+ MO 2020-06-15 00:00:00 Completed [facility] Pneumococcal Polysaccharide, PPSV23 (PNEUMOVAX) 2020-06-15 00:00:00 Completed [facility] Influenza Virus Vaccine Quad .5 mL IM 6+ MO 2020-06-15 00:00:00 Completed [facility] Pneumococcal Polysaccharide, PPSV23 (PNEUMOVAX) 2020-06-15 00:00:00 Completed [facility] Influenza Virus Vaccine Quad .5 mL IM 6+ MO 2020-06-15 00:00:00 Completed [facility] Pneumococcal Polysaccharide, PPSV23 (PNEUMOVAX) 2020-06-15 00:00:00 Completed [facility] Influenza Virus Vaccine Quad .5 mL IM 6+ MO 2020-06-15 00:00:00 Completed [facility] Pneumococcal Polysaccharide, PPSV23 (PNEUMOVAX) 2020-06-15 00:00:00 Completed [facility] Influenza Virus Vaccine Quad .5 mL IM 6+ MO 2020-06-15 00:00:00 Completed [facility] Pneumococcal Polysaccharide, PPSV23 (PNEUMOVAX) 2020-06-15 00:00:00 Completed [facility] Influenza Virus Vaccine Quad .5 mL IM 6+ MO 2020-06-15 00:00:00 Completed [facility] Pneumococcal Polysaccharide, PPSV23 (PNEUMOVAX) 2020-06-15 00:00:00 Completed [facility] Influenza Virus Vaccine Quad .5 mL IM 6+ MO 2020-06-15 00:00:00 Completed [facility] Pneumococcal Polysaccharide, PPSV23 (PNEUMOVAX) 2020-06-15 00:00:00 Completed [facility] Influenza Virus Vaccine Quad .5 mL IM 6+ MO 2020-06-15 00:00:00 Completed [facility] Pneumococcal Polysaccharide, PPSV23 (PNEUMOVAX) 2020-06-15 00:00:00 Completed [facility] Influenza Virus Vaccine Quad .5 mL IM 6+ MO 2020-06-15 00:00:00 Completed [facility] Pneumococcal Polysaccharide, PPSV23 (PNEUMOVAX) 2020-06-15 00:00:00 Completed [facility] Influenza Virus Vaccine Quad .5 mL IM 6+ MO 2020-06-15 00:00:00 Completed [facility] Pneumococcal Polysaccharide, PPSV23 (PNEUMOVAX) 2020-06-15 00:00:00 Completed [facility] Influenza Virus Vaccine Quad .5 mL IM 6+ MO 2020-06-15 00:00:00 Completed [facility] Pneumococcal Polysaccharide, PPSV23 (PNEUMOVAX) 2020-06-15 00:00:00 Completed [facility] Influenza Virus Vaccine Quad .5 mL IM 6+ MO 2020-06-15 00:00:00 Completed [facility] Pneumococcal Polysaccharide, PPSV23 (PNEUMOVAX) 2020-06-15 00:00:00 Completed [facility] Influenza Virus Vaccine Quad .5 mL IM 6+ MO 2020-06-15 00:00:00 Completed [facility] Pneumococcal Polysaccharide, PPSV23 (PNEUMOVAX) 2020-06-15 00:00:00 Completed [facility] Influenza Virus Vaccine Quad .5 mL IM 6+ MO 2020-06-15 00:00:00 Completed [facility] Pneumococcal Polysaccharide, PPSV23 (PNEUMOVAX) 2020-06-15 00:00:00 Completed [facility] Influenza Virus Vaccine Quad .5 mL IM 6+ MO 2020-06-15 00:00:00 Completed [facility] Pneumococcal Polysaccharide, PPSV23 (PNEUMOVAX) 2020-06-15 00:00:00 Completed [facility] Influenza Virus Vaccine Quad .5 mL IM 6+ MO 2020-06-15 00:00:00 Completed [facility] Pneumococcal Polysaccharide, PPSV23 (PNEUMOVAX) 2020-06-15 00:00:00 Completed [facility] Influenza Virus Vaccine Quad .5 mL IM 6+ MO 2020-06-15 00:00:00 Completed [facility] Pneumococcal Polysaccharide, PPSV23 (PNEUMOVAX) 2020-06-15 00:00:00 Completed [facility] Influenza Virus Vaccine Quad .5 mL IM 6+ MO 2020-06-15 00:00:00 Completed [facility] Pneumococcal Polysaccharide, PPSV23 (PNEUMOVAX) 2020-06-15 00:00:00 Completed [facility] Influenza Virus Vaccine Quad .5 mL IM 6+ MO 2020-06-15 00:00:00 Completed [facility] Pneumococcal Polysaccharide, PPSV23 (PNEUMOVAX) 2020-06-15 00:00:00 Completed [facility] Influenza Virus Vaccine Quad .5 mL IM 6+ MO 2020-06-15 00:00:00 Completed [facility] Pneumococcal Polysaccharide, PPSV23 (PNEUMOVAX) 2020-06-15 00:00:00 Completed [facility] Influenza Virus Vaccine Quad .5 mL IM 6+ MO 2020-06-15 00:00:00 Completed [facility] Pneumococcal Polysaccharide, PPSV23 (PNEUMOVAX) 2020-06-15 00:00:00 Completed [facility] Influenza Virus Vaccine Quad .5 mL IM 6+ MO 2020-06-15 00:00:00 Completed [facility] Pneumococcal Polysaccharide, PPSV23 (PNEUMOVAX) 2020-06-15 00:00:00 Completed [facility] Influenza Virus Vaccine Quad .5 mL IM 6+ MO 2020-06-15 00:00:00 Completed [facility] Pneumococcal Polysaccharide, PPSV23 (PNEUMOVAX) 2020-06-15 00:00:00 Completed [facility] Influenza Virus Vaccine Quad .5 mL IM 6+ MO 2020-06-15 00:00:00 Completed [facility] Pneumococcal Polysaccharide, PPSV23 (PNEUMOVAX) 2020-06-15 00:00:00 Completed [facility] Influenza Virus Vaccine Quad .5 mL IM 6+ MO 2020-06-15 00:00:00 Completed [facility] Pneumococcal Polysaccharide, PPSV23 (PNEUMOVAX) 2020-06-15 00:00:00 Completed [facility] Influenza Virus Vaccine Quad .5 mL IM 6+ MO 2020-06-15 00:00:00 Completed [facility] Pneumococcal Polysaccharide, PPSV23 (PNEUMOVAX) 2020-06-15 00:00:00 Completed [facility] Influenza Virus Vaccine Quad .5 mL IM 6+ MO 2020-06-15 00:00:00 Completed [facility] Pneumococcal Polysaccharide, PPSV23 (PNEUMOVAX) 2020-06-15 00:00:00 Completed [facility] Influenza Virus Vaccine Quad .5 mL IM 6+ MO 2020-06-15 00:00:00 Completed [facility] Pneumococcal Polysaccharide, PPSV23 (PNEUMOVAX) 2020-06-15 00:00:00 Completed [facility] Influenza Virus Vaccine Quad .5 mL IM 6+ MO 2020-06-15 00:00:00 Completed [facility] Pneumococcal Polysaccharide, PPSV23 (PNEUMOVAX) 2020-06-15 00:00:00 Completed [facility] Influenza Virus Vaccine Quad .5 mL IM 6+ MO 2020-06-15 00:00:00 Completed [facility] Pneumococcal Polysaccharide, PPSV23 (PNEUMOVAX) 2020-06-15 00:00:00 Completed [facility] Influenza Virus Vaccine Quad .5 mL IM 6+ MO 2020-06-15 00:00:00 Completed [facility] Pneumococcal Polysaccharide, PPSV23 (PNEUMOVAX) 2020-06-15 00:00:00 Completed [facility] Influenza Virus Vaccine Quad .5 mL IM 6+ MO 2020-06-15 00:00:00 Completed [facility] Pneumococcal Polysaccharide, PPSV23 (PNEUMOVAX) 2020-06-15 00:00:00 Completed [facility] Influenza Virus Vaccine Quad .5 mL IM 6+ MO 2020-06-15 00:00:00 Completed [facility] Pneumococcal Polysaccharide, PPSV23 (PNEUMOVAX) 2020-06-15 00:00:00 Completed [facility] Influenza Virus Vaccine Quad .5 mL IM 6+ MO 2020-06-15 00:00:00 Completed [facility] Pneumococcal Polysaccharide, PPSV23 (PNEUMOVAX) 2020-06-15 00:00:00 Completed [facility] Influenza Virus Vaccine Quad .5 mL IM 6+ MO 2020-06-15 00:00:00 Completed [facility] Pneumococcal Polysaccharide, PPSV23 (PNEUMOVAX) 2020-06-15 00:00:00 Completed [facility] Influenza Virus Vaccine Quad .5 mL IM 6+ MO 2020-06-15 00:00:00 Completed [facility] Pneumococcal Polysaccharide, PPSV23 (PNEUMOVAX) 2020-06-15 00:00:00 Completed [facility] Influenza Virus Vaccine Quad .5 mL IM 6+ MO 2020-06-15 00:00:00 Completed [facility] Pneumococcal Polysaccharide, PPSV23 (PNEUMOVAX) 2020-06-15 00:00:00 Completed [facility] Influenza Virus Vaccine Quad .5 mL IM 6+ MO 2020-06-15 00:00:00 Completed [facility] Pneumococcal Polysaccharide, PPSV23 (PNEUMOVAX) 2020-06-15 00:00:00 Completed [facility] Influenza Virus Vaccine Quad .5 mL IM 6+ MO 2020-06-15 00:00:00 Completed [facility] Pneumococcal Polysaccharide, PPSV23 (PNEUMOVAX) 2020-06-15 00:00:00 Completed [facility] Influenza Virus Vaccine Quad .5 mL IM 6+ MO 2020-06-15 00:00:00 Completed [facility] Pneumococcal Polysaccharide, PPSV23 (PNEUMOVAX) 2020-06-15 00:00:00 Completed [facility] Influenza Virus Vaccine Quad .5 mL IM 6+ MO 2020-06-15 00:00:00 Completed [facility] Pneumococcal Polysaccharide, PPSV23 (PNEUMOVAX) 2020-06-15 00:00:00 Completed [facility] Influenza Virus Vaccine Quad .5 mL IM 6+ MO 2020-06-15 00:00:00 Completed [facility] Pneumococcal Polysaccharide, PPSV23 (PNEUMOVAX) 2020-06-15 00:00:00 Completed [facility] Influenza Virus Vaccine Quad .5 mL IM 6+ MO 2020-06-15 00:00:00 Completed [facility] Pneumococcal Polysaccharide, PPSV23 (PNEUMOVAX) 2020-06-15 00:00:00 Completed [facility] Influenza Virus Vaccine Quad .5 mL IM 6+ MO 2020-06-15 00:00:00 Completed [facility] Pneumococcal Polysaccharide, PPSV23 (PNEUMOVAX) 2020-06-15 00:00:00 Completed [facility] Influenza Virus Vaccine Quad .5 mL IM 6+ MO 2020-06-15 00:00:00 Completed [facility] Pneumococcal Polysaccharide, PPSV23 (PNEUMOVAX) 2020-06-15 00:00:00 Completed [facility] Influenza Virus Vaccine Quad .5 mL IM 6+ MO 2020-06-15 00:00:00 Completed [facility] Pneumococcal Polysaccharide, PPSV23 (PNEUMOVAX) 2020-06-15 00:00:00 Completed [facility] Influenza Virus Vaccine Quad .5 mL IM 6+ MO 2020-06-15 00:00:00 Completed [facility] Pneumococcal Polysaccharide, PPSV23 (PNEUMOVAX) 2020-06-15 00:00:00 Completed [facility] Influenza Virus Vaccine Quad .5 mL IM 6+ MO 2020-06-15 00:00:00 Completed [facility] Pneumococcal Polysaccharide, PPSV23 (PNEUMOVAX) 2020-06-15 00:00:00 Completed [facility] Influenza Virus Vaccine Quad .5 mL IM 6+ MO 2020-06-15 00:00:00 Completed [facility] Pneumococcal Polysaccharide, PPSV23 (PNEUMOVAX) 2020-06-15 00:00:00 Completed [facility] Influenza Virus Vaccine Quad .5 mL IM 6+ MO 2020-06-15 00:00:00 Completed [facility] Pneumococcal Polysaccharide, PPSV23 (PNEUMOVAX) 2020-06-15 00:00:00 Completed [facility] Influenza Virus Vaccine Quad .5 mL IM 6+ MO 2020-06-15 00:00:00 Completed [facility] Pneumococcal Polysaccharide, PPSV23 (PNEUMOVAX) 2020-06-15 00:00:00 Completed [facility] Influenza Virus Vaccine Quad .5 mL IM 6+ MO 2020-06-15 00:00:00 Completed [facility] Pneumococcal Polysaccharide, PPSV23 (PNEUMOVAX) 2020-06-15 00:00:00 Completed [facility] Influenza Virus Vaccine Quad .5 mL IM 6+ MO 2020-06-15 00:00:00 Completed [facility] Pneumococcal Polysaccharide, PPSV23 (PNEUMOVAX) 2020-06-15 00:00:00 Completed [facility] Influenza Virus Vaccine Quad .5 mL IM 6+ MO 2020-06-15 00:00:00 Completed [facility] Pneumococcal Polysaccharide, PPSV23 (PNEUMOVAX) 2020-06-15 00:00:00 Completed [facility] Influenza Virus Vaccine Quad .5 mL IM 6+ MO 2020-06-15 00:00:00 Completed [facility] Pneumococcal Polysaccharide, PPSV23 (PNEUMOVAX) 2020-06-15 00:00:00 Completed [facility] Influenza Virus Vaccine Quad .5 mL IM 6+ MO 2020-06-15 00:00:00 Completed [facility] Pneumococcal Polysaccharide, PPSV23 (PNEUMOVAX) 2020-06-15 00:00:00 Completed [facility] Influenza Virus Vaccine Quad .5 mL IM 6+ MO 2020-06-15 00:00:00 Completed [facility] Pneumococcal Polysaccharide, PPSV23 (PNEUMOVAX) 2020-06-15 00:00:00 Completed [facility] Influenza Virus Vaccine Quad .5 mL IM 6+ MO 2020-06-15 00:00:00 Completed [facility] Pneumococcal Polysaccharide, PPSV23 (PNEUMOVAX) 2020-06-15 00:00:00 Completed [facility] Influenza Virus Vaccine Quad .5 mL IM 6+ MO 2020-06-15 00:00:00 Completed [facility] Pneumococcal Polysaccharide, PPSV23 (PNEUMOVAX) 2020-06-15 00:00:00 Completed [facility] Influenza Virus Vaccine Quad .5 mL IM 6+ MO 2020-06-15 00:00:00 Completed [facility] Pneumococcal Polysaccharide, PPSV23 (PNEUMOVAX) 2020-06-15 00:00:00 Completed [facility] Influenza Virus Vaccine Quad .5 mL IM 6+ MO 2020-06-15 00:00:00 Completed [facility] Pneumococcal Polysaccharide, PPSV23 (PNEUMOVAX) 2020-06-15 00:00:00 Completed [facility] Influenza Virus Vaccine Quad .5 mL IM 6+ MO 2020-06-15 00:00:00 Completed [facility] Pneumococcal Polysaccharide, PPSV23 (PNEUMOVAX) 2020-06-15 00:00:00 Completed [facility] Influenza Virus Vaccine Quad .5 mL IM 6+ MO 2020-06-15 00:00:00 Completed [facility] Pneumococcal Polysaccharide, PPSV23 (PNEUMOVAX) 2020-06-15 00:00:00 Completed [facility] Influenza Virus Vaccine Quad .5 mL IM 6+ MO 2020-06-15 00:00:00 Completed [facility] Pneumococcal Polysaccharide, PPSV23 (PNEUMOVAX) 2020-06-15 00:00:00 Completed [facility] Influenza Virus Vaccine Quad .5 mL IM 6+ MO 2020-06-15 00:00:00 Completed [facility] Pneumococcal Polysaccharide, PPSV23 (PNEUMOVAX) 2020-06-15 00:00:00 Completed [facility] Influenza Virus Vaccine Quad .5 mL IM 6+ MO 2020-06-15 00:00:00 Completed [facility] Pneumococcal Polysaccharide, PPSV23 (PNEUMOVAX) 2020-06-15 00:00:00 Completed [facility] Influenza Virus Vaccine Quad .5 mL IM 6+ MO 2020-06-15 00:00:00 Completed [facility] Pneumococcal Polysaccharide, PPSV23 (PNEUMOVAX) 2020-06-15 00:00:00 Completed [facility] Influenza Virus Vaccine Quad .5 mL IM 6+ MO 2020-06-15 00:00:00 Completed [facility] Pneumococcal Polysaccharide, PPSV23 (PNEUMOVAX) 2020-06-15 00:00:00 Completed [facility] Influenza Virus Vaccine Quad .5 mL IM 6+ MO 2020-06-15 00:00:00 Completed [facility] Pneumococcal Polysaccharide, PPSV23 (PNEUMOVAX) 2020-06-15 00:00:00 Completed [facility] Influenza Virus Vaccine Quad .5 mL IM 6+ MO 2020-06-15 00:00:00 Completed [facility] Pneumococcal Polysaccharide, PPSV23 (PNEUMOVAX) 2020-06-15 00:00:00 Completed [facility] Influenza Virus Vaccine Quad .5 mL IM 6+ MO 2020-06-15 00:00:00 Completed [facility] Pneumococcal Polysaccharide, PPSV23 (PNEUMOVAX) 2020-06-15 00:00:00 Completed [facility] Influenza Virus Vaccine Quad .5 mL IM 6+ MO 2020-06-15 00:00:00 Completed [facility] Pneumococcal Polysaccharide, PPSV23 (PNEUMOVAX) 2020-06-15 00:00:00 Completed [facility] Influenza Virus Vaccine Quad .5 mL IM 6+ MO 2020-06-15 00:00:00 Completed [facility] Pneumococcal Polysaccharide, PPSV23 (PNEUMOVAX) 2020-06-15 00:00:00 Completed [facility] Influenza Virus Vaccine Quad .5 mL IM 6+ MO 2020-06-15 00:00:00 Completed [facility] Pneumococcal Polysaccharide, PPSV23 (PNEUMOVAX) 2020-06-15 00:00:00 Completed [facility] Influenza Virus Vaccine Quad .5 mL IM 6+ MO 2020-06-15 00:00:00 Completed [facility] Pneumococcal Polysaccharide, PPSV23 (PNEUMOVAX) 2020-06-15 00:00:00 Completed [facility] Influenza Virus Vaccine Quad .5 mL IM 6+ MO 2020-06-15 00:00:00 Completed [facility] Pneumococcal Polysaccharide, PPSV23 (PNEUMOVAX) 2020-06-15 00:00:00 Completed [facility] Influenza Virus Vaccine Quad .5 mL IM 6+ MO 2020-06-15 00:00:00 Completed [facility] Pneumococcal Polysaccharide, PPSV23 (PNEUMOVAX) 2020-06-15 00:00:00 Completed [facility] Influenza Virus Vaccine Quad .5 mL IM 6+ MO 2020-06-15 00:00:00 Completed [facility] Pneumococcal Polysaccharide, PPSV23 (PNEUMOVAX) 2020-06-15 00:00:00 Completed [facility] Influenza Virus Vaccine Quad .5 mL IM 6+ MO 2020-06-15 00:00:00 Completed [facility] Pneumococcal Polysaccharide, PPSV23 (PNEUMOVAX) 2020-06-15 00:00:00 Completed [facility] Influenza Virus Vaccine Quad .5 mL IM 6+ MO 2020-06-15 00:00:00 Completed [facility] Pneumococcal Polysaccharide, PPSV23 (PNEUMOVAX) 2020-06-15 00:00:00 Completed [facility] Influenza Virus Vaccine Quad .5 mL IM 6+ MO 2020-06-15 00:00:00 Completed [facility] Pneumococcal Polysaccharide, PPSV23 (PNEUMOVAX) 2020-06-15 00:00:00 Completed [facility] Influenza Virus Vaccine Quad .5 mL IM 6+ MO 2020-06-15 00:00:00 Completed [facility] Pneumococcal Polysaccharide, PPSV23 (PNEUMOVAX) 2020-06-15 00:00:00 Completed [facility] Influenza Virus Vaccine Quad .5 mL IM 6+ MO 2020-06-15 00:00:00 Completed [facility] Pneumococcal Polysaccharide, PPSV23 (PNEUMOVAX) 2020-06-15 00:00:00 Completed [facility] Influenza Virus Vaccine Quad .5 mL IM 6+ MO 2020-06-15 00:00:00 Completed [facility] Pneumococcal Polysaccharide, PPSV23 (PNEUMOVAX) 2020-06-15 00:00:00 Completed [facility] Influenza Virus Vaccine Quad .5 mL IM 6+ MO 2020-06-15 00:00:00 Completed [facility] Pneumococcal Polysaccharide, PPSV23 (PNEUMOVAX) 2020-06-15 00:00:00 Completed [facility] Influenza Virus Vaccine Quad .5 mL IM 6+ MO 2020-06-15 00:00:00 Completed [facility] Pneumococcal Polysaccharide, PPSV23 (PNEUMOVAX) 2020-06-15 00:00:00 Completed [facility] Influenza Virus Vaccine Quad .5 mL IM 6+ MO 2020-06-15 00:00:00 Completed [facility] Pneumococcal Polysaccharide, PPSV23 (PNEUMOVAX) 2020-06-15 00:00:00 Completed [facility] Influenza Virus Vaccine Quad .5 mL IM 6+ MO 2020-06-15 00:00:00 Completed [facility] Pneumococcal Polysaccharide, PPSV23 (PNEUMOVAX) 2020-06-15 00:00:00 Completed [facility] Influenza Virus Vaccine Quad .5 mL IM 6+ MO 2020-06-15 00:00:00 Completed [facility] Pneumococcal Polysaccharide, PPSV23 (PNEUMOVAX) 2020-06-15 00:00:00 Completed [facility] Influenza Virus Vaccine Quad .5 mL IM 6+ MO 2020-06-15 00:00:00 Completed [facility] Pneumococcal Polysaccharide, PPSV23 (PNEUMOVAX) 2020-06-15 00:00:00 Completed [facility] Influenza Virus Vaccine Quad .5 mL IM 6+ MO 2020-06-15 00:00:00 Completed [facility] Pneumococcal Polysaccharide, PPSV23 (PNEUMOVAX) 2020-06-15 00:00:00 Completed [facility] Influenza Virus Vaccine Quad .5 mL IM 6+ MO 2020-06-15 00:00:00 Completed [facility] Pneumococcal Polysaccharide, PPSV23 (PNEUMOVAX) 2020-06-15 00:00:00 Completed [facility] Influenza Virus Vaccine Quad .5 mL IM 6+ MO 2020-06-15 00:00:00 Completed [facility] Pneumococcal Polysaccharide, PPSV23 (PNEUMOVAX) 2020-06-15 00:00:00 Completed [facility] Influenza Virus Vaccine Quad .5 mL IM 6+ MO 2020-06-15 00:00:00 Completed [facility] Pneumococcal Polysaccharide, PPSV23 (PNEUMOVAX) 2020-06-15 00:00:00 Completed [facility] Influenza Virus Vaccine Quad .5 mL IM 6+ MO 2020-06-15 00:00:00 Completed [facility] Pneumococcal Polysaccharide, PPSV23 (PNEUMOVAX) 2020-06-15 00:00:00 Completed [facility] Influenza Virus Vaccine Quad .5 mL IM 6+ MO 2020-06-15 00:00:00 Completed [facility] Pneumococcal Polysaccharide, PPSV23 (PNEUMOVAX) 2020-06-15 00:00:00 Completed [facility] Influenza Virus Vaccine Quad .5 mL IM 6+ MO 2020-06-15 00:00:00 Completed [facility] Pneumococcal Polysaccharide, PPSV23 (PNEUMOVAX) 2020-06-15 00:00:00 Completed [facility] Influenza Virus Vaccine Quad .5 mL IM 6+ MO 2020-06-15 00:00:00 Completed [facility] Pneumococcal Polysaccharide, PPSV23 (PNEUMOVAX) 2020-06-15 00:00:00 Completed [facility] Influenza Virus Vaccine Quad .5 mL IM 6+ MO 2020-06-15 00:00:00 Completed [facility] Pneumococcal Polysaccharide, PPSV23 (PNEUMOVAX) 2020-06-15 00:00:00 Completed [facility] Influenza Virus Vaccine Quad .5 mL IM 6+ MO 2020-06-15 00:00:00 Completed [facility] Pneumococcal Polysaccharide, PPSV23 (PNEUMOVAX) 2020-06-15 00:00:00 Completed [facility] Influenza Virus Vaccine Quad .5 mL IM 6+ MO 2020-06-15 00:00:00 Completed [facility] Pneumococcal Polysaccharide, PPSV23 (PNEUMOVAX) 2020-06-15 00:00:00 Completed [facility] Influenza Virus Vaccine Quad .5 mL IM 6+ MO 2020-06-15 00:00:00 Completed [facility] Pneumococcal Polysaccharide, PPSV23 (PNEUMOVAX) 2020-06-15 00:00:00 Completed [facility] Influenza Virus Vaccine Quad .5 mL IM 6+ MO 2020-06-15 00:00:00 Completed [facility] Pneumococcal Polysaccharide, PPSV23 (PNEUMOVAX) 2020-06-15 00:00:00 Completed [facility] Influenza Virus Vaccine Quad .5 mL IM 6+ MO 2020-06-15 00:00:00 Completed [facility] Pneumococcal Polysaccharide, PPSV23 (PNEUMOVAX) 2020-06-15 00:00:00 Completed [facility] Influenza Virus Vaccine Quad .5 mL IM 6+ MO (FLUZONE/FLULAVAL/F LUARIX) 2020-06-15 00:00:00 Completed [facility] Pneumococcal Polysaccharide, PPSV23 (PNEUMOVAX) 2020-06-15 00:00:00 Completed [facility] Influenza Virus Vaccine Quad .5 mL IM 6+ MO (FLUZONE/FLULAVAL/F LUARIX) 2020-06-15 00:00:00 Completed [facility] Pneumococcal Polysaccharide, PPSV23 (PNEUMOVAX) 2020-06-15 00:00:00 Completed [facility] Influenza Virus Vaccine Quad .5 mL IM 6+ MO (FLUZONE/FLULAVAL/F LUARIX) 2020-06-15 00:00:00 Completed [facility] Pneumococcal Polysaccharide, PPSV23 (PNEUMOVAX) 2020-06-15 00:00:00 Completed [facility] Influenza Virus Vaccine Quad .5 mL IM 6+ MO (FLUZONE/FLULAVAL/F LUARIX) 2020-06-15 00:00:00 Completed [facility] Pneumococcal Polysaccharide, PPSV23 (PNEUMOVAX) 2020-06-15 00:00:00 Completed [facility] Influenza Virus Vaccine Quad .5 mL IM 6+ MO (FLUZONE/FLULAVAL/F LUARIX) 2020-06-15 00:00:00 Completed [facility] Pneumococcal Polysaccharide, PPSV23 (PNEUMOVAX) Unknown Completed [facility] Influenza Virus Vaccine Quad .5 mL IM 6+ MO (FLUZONE/FLULAVAL/F LUARIX) Unknown Completed [facility] SARS-COV-2 COVID-19 MODERNA 12+ YRS VACCINE Unknown Completed [facility] SARS-COV-2 COVID-19 MODERNA 0.25ML BOOSTER VACCINE Unknown Completed [facility] Influenza Virus Vaccine Recomb Quad IM, Preserv and ABX Free 18-64 YRS Unknown Completed [facility] Pneumococcal Polysaccharide, PPSV23 (PNEUMOVAX) Unknown Completed [facility] Influenza Virus Vaccine Quad .5 mL IM 6+ MO (FLUZONE/FLULAVAL/F LUARIX) Unknown Completed [facility] SARS-COV-2 COVID-19 MODERNA 12+ YRS VACCINE Unknown Completed [facility] SARS-COV-2 COVID-19 MODERNA 0.25ML BOOSTER VACCINE Unknown Completed [facility] Influenza Virus Vaccine Recomb Quad IM, Preserv and ABX Free 18-64 YRS Unknown Completed [facility] Pneumococcal Polysaccharide, PPSV23 (PNEUMOVAX) Unknown Completed [facility] Influenza Virus Vaccine Quad .5 mL IM 6+ MO (FLUZONE/FLULAVAL/F LUARIX) Unknown Completed [facility] SARS-COV-2 COVID-19 MODERNA 12+ YRS VACCINE Unknown Completed [facility] SARS-COV-2 COVID-19 MODERNA 0.25ML BOOSTER VACCINE Unknown Completed [facility] Influenza Virus Vaccine Recomb Quad IM, Preserv and ABX Free 18-64 YRS Unknown Completed [facility] Pneumococcal Polysaccharide, PPSV23 (PNEUMOVAX) Unknown Completed [facility] Influenza Virus Vaccine Quad .5 mL IM 6+ MO (FLUZONE/FLULAVAL/F LUARIX) Unknown Completed [facility] SARS-COV-2 COVID-19 MODERNA 12+ YRS VACCINE Unknown Completed [facility] SARS-COV-2 COVID-19 MODERNA 0.25ML BOOSTER VACCINE Unknown Completed [facility] Influenza Virus Vaccine Recomb Quad IM, Preserv and ABX Free 18-64 YRS Unknown Completed [facility] Pneumococcal Polysaccharide, PPSV23 (PNEUMOVAX) Unknown Completed [facility] Influenza Virus Vaccine Quad .5 mL IM 6+ MO (FLUZONE/FLULAVAL/F LUARIX) Unknown Completed [facility] SARS-COV-2 COVID-19 MODERNA 12+ YRS VACCINE Unknown Completed [facility] SARS-COV-2 COVID-19 MODERNA 0.25ML BOOSTER VACCINE Unknown Completed [facility] Influenza Virus Vaccine Recomb Quad IM, Preserv and ABX Free 18-64 YRS Unknown Completed [facility] Pneumococcal Polysaccharide, PPSV23 (PNEUMOVAX) Unknown Completed [facility] Influenza Virus Vaccine Quad .5 mL IM 6+ MO (FLUZONE/FLULAVAL/F LUARIX) Unknown Completed [facility] SARS-COV-2 COVID-19 MODERNA 12+ YRS VACCINE Unknown Completed [facility] SARS-COV-2 COVID-19 MODERNA 0.25ML BOOSTER VACCINE Unknown Completed [facility] Pneumococcal Polysaccharide, PPSV23 (PNEUMOVAX) Unknown Completed [facility] Influenza Virus Vaccine Quad .5 mL IM 6+ MO (FLUZONE/FLULAVAL/F LUARIX) Unknown Completed [facility] SARS-COV-2 COVID-19 MODERNA 12+ YRS VACCINE Unknown Completed [facility] SARS-COV-2 COVID-19 MODERNA 0.25ML BOOSTER VACCINE Unknown Completed [facility] Influenza Virus Vaccine Recomb Quad IM, Preserv and ABX Free 18-64 YRS Unknown Completed [facility] Pneumococcal Polysaccharide, PPSV23 (PNEUMOVAX) Unknown Completed [facility] Influenza Virus Vaccine Quad .5 mL IM 6+ MO (FLUZONE/FLULAVAL/F LUARIX) Unknown Completed [facility] SARS-COV-2 COVID-19 MODERNA 12+ YRS VACCINE Unknown Completed [facility] SARS-COV-2 COVID-19 MODERNA 0.25ML BOOSTER VACCINE Unknown Completed [facility] Influenza Virus Vaccine Recomb Quad IM, Preserv and ABX Free 18-64 YRS Unknown Completed [facility] Pneumococcal Polysaccharide, PPSV23 (PNEUMOVAX) Unknown Completed [facility] Influenza Virus Vaccine Quad .5 mL IM 6+ MO (FLUZONE/FLULAVAL/F LUARIX) Unknown Completed [facility] SARS-COV-2 COVID-19 MODERNA 12+ YRS VACCINE Unknown Completed [facility] SARS-COV-2 COVID-19 MODERNA 0.25ML BOOSTER VACCINE Unknown Completed [facility] Influenza Virus Vaccine Recomb Quad IM, Preserv and ABX Free 18-64 YRS Unknown Completed [facility] Pneumococcal Polysaccharide, PPSV23 (PNEUMOVAX) Unknown Completed [facility] Influenza Virus Vaccine Quad .5 mL IM 6+ MO (FLUZONE/FLULAVAL/F LUARIX) Unknown Completed [facility] SARS-COV-2 COVID-19 MODERNA 12+ YRS VACCINE Unknown Completed [facility] SARS-COV-2 COVID-19 MODERNA 0.25ML BOOSTER VACCINE Unknown Completed [facility] Influenza Virus Vaccine Recomb Quad IM, Preserv and ABX Free 18-64 YRS Unknown Completed [facility] Pneumococcal Polysaccharide, PPSV23 (PNEUMOVAX) Unknown Completed [facility] Influenza Virus Vaccine Quad .5 mL IM 6+ MO (FLUZONE/FLULAVAL/F LUARIX) Unknown Completed [facility] SARS-COV-2 COVID-19 MODERNA 12+ YRS VACCINE Unknown Completed [facility] SARS-COV-2 COVID-19 MODERNA 0.25ML BOOSTER VACCINE Unknown Completed [facility] Influenza Virus Vaccine Recomb Quad IM, Preserv and ABX Free 18-64 YRS Unknown Completed [facility] Pneumococcal Polysaccharide, PPSV23 (PNEUMOVAX) Unknown Completed [facility] Influenza Virus Vaccine Quad .5 mL IM 6+ MO (FLUZONE/FLULAVAL/F LUARIX) Unknown Completed [facility] SARS-COV-2 COVID-19 MODERNA 12+ YRS VACCINE Unknown Completed [facility] SARS-COV-2 COVID-19 MODERNA 0.25ML BOOSTER VACCINE Unknown Completed [facility] Influenza Virus Vaccine Recomb Quad IM, Preserv and ABX Free 18-64 YRS Unknown Completed [facility] Pneumococcal Polysaccharide, PPSV23 (PNEUMOVAX) Unknown Completed [facility] Influenza Virus Vaccine Quad .5 mL IM 6+ MO (FLUZONE/FLULAVAL/F LUARIX) Unknown Completed [facility] SARS-COV-2 COVID-19 MODERNA 12+ YRS VACCINE Unknown Completed [facility] SARS-COV-2 COVID-19 MODERNA 0.25ML BOOSTER VACCINE Unknown Completed [facility] Influenza Virus Vaccine Recomb Quad IM, Preserv and ABX Free 18-64 YRS Unknown Completed [facility] Pneumococcal Polysaccharide, PPSV23 (PNEUMOVAX) Unknown Completed [facility] Influenza Virus Vaccine Quad .5 mL IM 6+ MO (FLUZONE/FLULAVAL/F LUARIX) Unknown Completed [facility] SARS-COV-2 COVID-19 MODERNA 12+ YRS VACCINE Unknown Completed [facility] SARS-COV-2 COVID-19 MODERNA 0.25ML BOOSTER VACCINE Unknown Completed [facility] Influenza Virus Vaccine Recomb Quad IM, Preserv and ABX Free 18-64 YRS Unknown Completed [facility] Pneumococcal Polysaccharide, PPSV23 (PNEUMOVAX) Unknown Completed [facility] Influenza Virus Vaccine Quad .5 mL IM 6+ MO (FLUZONE/FLULAVAL/F LUARIX) Unknown Completed [facility] SARS-COV-2 COVID-19 MODERNA 12+ YRS VACCINE Unknown Completed [facility] SARS-COV-2 COVID-19 MODERNA 0.25ML BOOSTER VACCINE Unknown Completed [facility] Influenza Virus Vaccine Recomb Quad IM, Preserv and ABX Free 18-64 YRS Unknown Completed [facility] Pneumococcal Polysaccharide, PPSV23 (PNEUMOVAX) Unknown Completed [facility] Influenza Virus Vaccine Quad .5 mL IM 6+ MO (FLUZONE/FLULAVAL/F LUARIX) Unknown Completed [facility] SARS-COV-2 COVID-19 MODERNA 12+ YRS VACCINE Unknown Completed [facility] SARS-COV-2 COVID-19 MODERNA 0.25ML BOOSTER VACCINE Unknown Completed [facility] Influenza Virus Vaccine Recomb Quad IM, Preserv and ABX Free 18-64 YRS Unknown Completed [facility] Pneumococcal Polysaccharide, PPSV23 (PNEUMOVAX) Unknown Completed [facility] Influenza Virus Vaccine Quad .5 mL IM 6+ MO (FLUZONE/FLULAVAL/F LUARIX) Unknown Completed [facility] SARS-COV-2 COVID-19 MODERNA 12+ YRS VACCINE Unknown Completed [facility] SARS-COV-2 COVID-19 MODERNA 0.25ML BOOSTER VACCINE Unknown Completed [facility] Influenza Virus Vaccine Recomb Quad IM, Preserv and ABX Free 18-64 YRS Unknown Completed [facility] Pneumococcal Polysaccharide, PPSV23 (PNEUMOVAX) Unknown Completed [facility] Influenza Virus Vaccine Quad .5 mL IM 6+ MO (FLUZONE/FLULAVAL/F LUARIX) Unknown Completed [facility] SARS-COV-2 COVID-19 MODERNA 12+ YRS VACCINE Unknown Completed [facility] SARS-COV-2 COVID-19 MODERNA 0.25ML BOOSTER VACCINE Unknown Completed [facility] Influenza Virus Vaccine Recomb Quad IM, Preserv and ABX Free 18-64 YRS Unknown Completed [facility] Pneumococcal Polysaccharide, PPSV23 (PNEUMOVAX) Unknown Completed [facility] Influenza Virus Vaccine Quad .5 mL IM 6+ MO (FLUZONE/FLULAVAL/F LUARIX) Unknown Completed [facility] SARS-COV-2 COVID-19 MODERNA 12+ YRS VACCINE Unknown Completed [facility] SARS-COV-2 COVID-19 MODERNA 0.25ML BOOSTER VACCINE Unknown Completed [facility] Influenza Virus Vaccine Recomb Quad IM, Preserv and ABX Free 18-64 YRS Unknown Completed [facility] Pneumococcal Polysaccharide, PPSV23 (PNEUMOVAX) Unknown Completed [facility] Influenza Virus Vaccine Quad .5 mL IM 6+ MO (FLUZONE/FLULAVAL/F LUARIX) Unknown Completed [facility] SARS-COV-2 COVID-19 MODERNA 12+ YRS VACCINE Unknown Completed [facility] SARS-COV-2 COVID-19 MODERNA 0.25ML BOOSTER VACCINE Unknown Completed [facility] Influenza Virus Vaccine Recomb Quad IM, Preserv and ABX Free 18-64 YRS Unknown Completed [facility] Pneumococcal Polysaccharide, PPSV23 (PNEUMOVAX) Unknown Completed [facility] Influenza Virus Vaccine Quad .5 mL IM 6+ MO (FLUZONE/FLULAVAL/F LUARIX) Unknown Completed [facility] SARS-COV-2 COVID-19 MODERNA 12+ YRS VACCINE Unknown Completed [facility] SARS-COV-2 COVID-19 MODERNA 0.25ML BOOSTER VACCINE Unknown Completed [facility] Influenza Virus Vaccine Recomb Quad IM, Preserv and ABX Free 18-64 YRS Unknown Completed [facility] Pneumococcal Polysaccharide, PPSV23 (PNEUMOVAX) Unknown Completed [facility] Influenza Virus Vaccine Quad .5 mL IM 6+ MO (FLUZONE/FLULAVAL/F LUARIX) Unknown Completed [facility] SARS-COV-2 COVID-19 MODERNA 12+ YRS VACCINE Unknown Completed [facility] SARS-COV-2 COVID-19 MODERNA 0.25ML BOOSTER VACCINE Unknown Completed [facility] Influenza Virus Vaccine Recomb Quad IM, Preserv and ABX Free 18-64 YRS Unknown Completed [facility] Pneumococcal Polysaccharide, PPSV23 (PNEUMOVAX) Unknown Completed [facility] Influenza Virus Vaccine Quad .5 mL IM 6+ MO (FLUZONE/FLULAVAL/F LUARIX) Unknown Completed [facility] SARS-COV-2 COVID-19 MODERNA 12+ YRS VACCINE Unknown Completed [facility] SARS-COV-2 COVID-19 MODERNA 0.25ML BOOSTER VACCINE Unknown Completed [facility] Influenza Virus Vaccine Recomb Quad IM, Preserv and ABX Free 18-64 YRS Unknown Completed [facility] Pneumococcal Polysaccharide, PPSV23 (PNEUMOVAX) Unknown Completed [facility] Influenza Virus Vaccine Quad .5 mL IM 6+ MO (FLUZONE/FLULAVAL/F LUARIX) Unknown Completed [facility] SARS-COV-2 COVID-19 MODERNA 12+ YRS VACCINE Unknown Completed [facility] SARS-COV-2 COVID-19 MODERNA 0.25ML BOOSTER VACCINE Unknown Completed [facility] Influenza Virus Vaccine Recomb Quad IM, Preserv and ABX Free 18-64 YRS Unknown Completed [facility] Pneumococcal Polysaccharide, PPSV23 (PNEUMOVAX) Unknown Completed [facility] Influenza Virus Vaccine Quad .5 mL IM 6+ MO (FLUZONE/FLULAVAL/F LUARIX) Unknown Completed [facility] SARS-COV-2 COVID-19 MODERNA 12+ YRS VACCINE Unknown Completed [facility] SARS-COV-2 COVID-19 MODERNA 0.25ML BOOSTER VACCINE Unknown Completed [facility] Influenza Virus Vaccine Recomb Quad IM, Preserv and ABX Free 18-64 YRS Unknown Completed [facility] Pneumococcal Polysaccharide, PPSV23 (PNEUMOVAX) Unknown Completed [facility] Influenza Virus Vaccine Quad .5 mL IM 6+ MO (FLUZONE/FLULAVAL/F LUARIX) Unknown Completed [facility] SARS-COV-2 COVID-19 MODERNA 12+ YRS VACCINE Unknown Completed [facility] SARS-COV-2 COVID-19 MODERNA 0.25ML BOOSTER VACCINE Unknown Completed [facility] Influenza Virus Vaccine Recomb Quad IM, Preserv and ABX Free 18-64 YRS Unknown Completed [facility] Pneumococcal Polysaccharide, PPSV23 (PNEUMOVAX) Unknown Completed [facility] Influenza Virus Vaccine Quad .5 mL IM 6+ MO (FLUZONE/FLULAVAL/F LUARIX) Unknown Completed [facility] SARS-COV-2 COVID-19 MODERNA 0.25ML BOOSTER VACCINE Unknown Completed [facility] Influenza Virus Vaccine Recomb Quad IM, Preserv and ABX Free 18-64 YRS Unknown Completed [facility] Influenza Virus Vaccine Quad IM, Preserv and ABX Free 6 MO-64 YRS (FLUCELVAX) Unknown Completed [facility] Pneumococcal 20 Conjugate, PCV20 (Prevnar 20) Unknown Completed [facility] SARS-COV-2 COVID-19 MODERNA 12+ YRS VACCINE Unknown Completed [facility] Pneumococcal Polysaccharide, PPSV23 (PNEUMOVAX) Unknown Completed [facility] Influenza Virus Vaccine Quad .5 mL IM 6+ MO (FLUZONE/FLULAVAL/F LUARIX) Unknown Completed [facility] SARS-COV-2 COVID-19 MODERNA 12+ YRS VACCINE Unknown Completed [facility] SARS-COV-2 COVID-19 MODERNA 0.25ML BOOSTER VACCINE Unknown Completed [facility] Influenza Virus Vaccine Recomb Quad IM, Preserv and ABX Free 18-64 YRS Unknown Completed [facility] Influenza Virus Vaccine Quad IM, Preserv and ABX Free 6 MO-64 YRS (FLUCELVAX) Unknown Completed [facility] Pneumococcal 20 Conjugate, PCV20 (Prevnar 20) Unknown Completed [facility] Pneumococcal Polysaccharide, PPSV23 (PNEUMOVAX) Unknown Completed [facility] Influenza Virus Vaccine Quad .5 mL IM 6+ MO (FLUZONE/FLULAVAL/F LUARIX) Unknown Completed [facility] SARS-COV-2 COVID-19 MODERNA 12+ YRS VACCINE Unknown Completed [facility] SARS-COV-2 COVID-19 MODERNA 0.25ML BOOSTER VACCINE Unknown Completed [facility] Influenza Virus Vaccine Recomb Quad IM, Preserv and ABX Free 18-64 YRS Unknown Completed [facility] Influenza Virus Vaccine Quad IM, Preserv and ABX Free 6 MO-64 YRS (FLUCELVAX) Unknown Completed [facility] Pneumococcal 20 Conjugate, PCV20 (Prevnar 20) Unknown Completed [facility] Pneumococcal Polysaccharide, PPSV23 (PNEUMOVAX) Unknown Completed [facility] Influenza Virus Vaccine Quad .5 mL IM 6+ MO (FLUZONE/FLULAVAL/F LUARIX) Unknown Completed [facility] SARS-COV-2 COVID-19 MODERNA 12+ YRS VACCINE Unknown Completed [facility] SARS-COV-2 COVID-19 MODERNA 0.25ML BOOSTER VACCINE Unknown Completed [facility] Influenza Virus Vaccine Recomb Quad IM, Preserv and ABX Free 18-64 YRS Unknown Completed [facility] Influenza Virus Vaccine Quad IM, Preserv and ABX Free 6 MO-64 YRS (FLUCELVAX) Unknown Completed [facility] Pneumococcal 20 Conjugate, PCV20 (Prevnar 20) Unknown Completed [facility] Pneumococcal Polysaccharide, PPSV23 (PNEUMOVAX) Unknown Completed [facility] Influenza Virus Vaccine Quad .5 mL IM 6+ MO (FLUZONE/FLULAVAL/F LUARIX) Unknown Completed [facility] SARS-COV-2 COVID-19 MODERNA 0.25ML BOOSTER VACCINE Unknown Completed [facility] Influenza Virus Vaccine Recomb Quad IM, Preserv and ABX Free 18-64 YRS Unknown Completed [facility] Influenza Virus Vaccine Quad IM, Preserv and ABX Free 6 MO-64 YRS (FLUCELVAX) Unknown Completed [facility] Pneumococcal 20 Conjugate, PCV20 (Prevnar 20) Unknown Completed [facility] SARS-COV-2 COVID-19 MODERNA 12+ YRS VACCINE Unknown Completed [facility] Pneumococcal Polysaccharide, PPSV23 (PNEUMOVAX) Unknown Completed [facility] Influenza Virus Vaccine Quad .5 mL IM 6+ MO (FLUZONE/FLULAVAL/F LUARIX) Unknown Completed [facility] SARS-COV-2 COVID-19 MODERNA 12+ YRS VACCINE Unknown Completed [facility] SARS-COV-2 COVID-19 MODERNA 0.25ML BOOSTER VACCINE Unknown Completed [facility] Influenza Virus Vaccine Recomb Quad IM, Preserv and ABX Free 18-64 YRS Unknown Completed [facility] Influenza Virus Vaccine Quad IM, Preserv and ABX Free 6 MO-64 YRS (FLUCELVAX) Unknown Completed [facility] Pneumococcal 20 Conjugate, PCV20 (Prevnar 20) Unknown Completed [facility] Pneumococcal Polysaccharide, PPSV23 (PNEUMOVAX) Unknown Completed [facility] Influenza Virus Vaccine Quad .5 mL IM 6+ MO (FLUZONE/FLULAVAL/F LUARIX) Unknown Completed [facility] SARS-COV-2 COVID-19 MODERNA 12+ YRS VACCINE Unknown Completed [facility] SARS-COV-2 COVID-19 MODERNA 0.25ML BOOSTER VACCINE Unknown Completed [facility] Influenza Virus Vaccine Recomb Quad IM, Preserv and ABX Free 18-64 YRS Unknown Completed [facility] Influenza Virus Vaccine Quad IM, Preserv and ABX Free 6 MO-64 YRS (FLUCELVAX) Unknown Completed [facility] Pneumococcal 20 Conjugate, PCV20 (Prevnar 20) Unknown Completed [facility] Pneumococcal Polysaccharide, PPSV23 (PNEUMOVAX) Unknown Completed [facility] Influenza Virus Vaccine Quad .5 mL IM 6+ MO (FLUZONE/FLULAVAL/F LUARIX) Unknown Completed [facility] SARS-COV-2 COVID-19 MODERNA 12+ YRS VACCINE Unknown Completed [facility] SARS-COV-2 COVID-19 MODERNA 0.25ML BOOSTER VACCINE Unknown Completed [facility] Influenza Virus Vaccine Recomb Quad IM, Preserv and ABX Free 18-64 YRS Unknown Completed [facility] Influenza Virus Vaccine Quad IM, Preserv and ABX Free 6 MO-64 YRS (FLUCELVAX) Unknown Completed [facility] Pneumococcal 20 Conjugate, PCV20 (Prevnar 20) Unknown Completed [facility] Pneumococcal Polysaccharide, PPSV23 (PNEUMOVAX) Unknown Completed [facility] Influenza Virus Vaccine Quad .5 mL IM 6+ MO (FLUZONE/FLULAVAL/F LUARIX) Unknown Completed [facility] SARS-COV-2 COVID-19 MODERNA 12+ YRS VACCINE Unknown Completed [facility] SARS-COV-2 COVID-19 MODERNA 0.25ML BOOSTER VACCINE Unknown Completed [facility] Influenza Virus Vaccine Recomb Quad IM, Preserv and ABX Free 18-64 YRS Unknown Completed [facility] Influenza Virus Vaccine Quad IM, Preserv and ABX Free 6 MO-64 YRS (FLUCELVAX) Unknown Completed [facility] Pneumococcal 20 Conjugate, PCV20 (Prevnar 20) Unknown Completed [facility] Pneumococcal Polysaccharide, PPSV23 (PNEUMOVAX) Unknown Completed [facility] Influenza Virus Vaccine Quad .5 mL IM 6+ MO (FLUZONE/FLULAVAL/F LUARIX) Unknown Completed [facility] SARS-COV-2 COVID-19 MODERNA 12+ YRS VACCINE Unknown Completed [facility] SARS-COV-2 COVID-19 MODERNA 0.25ML BOOSTER VACCINE Unknown Completed [facility] Influenza Virus Vaccine Recomb Quad IM, Preserv and ABX Free 18-64 YRS Unknown Completed [facility] Influenza Virus Vaccine Quad IM, Preserv and ABX Free 6 MO-64 YRS (FLUCELVAX) Unknown Completed [facility] Pneumococcal 20 Conjugate, PCV20 (Prevnar 20) Unknown Completed [facility] Pneumococcal Polysaccharide, PPSV23 (PNEUMOVAX) Unknown Completed [facility] Influenza Virus Vaccine Quad .5 mL IM 6+ MO (FLUZONE/FLULAVAL/F LUARIX) Unknown Completed [facility] SARS-COV-2 COVID-19 MODERNA 12+ YRS VACCINE Unknown Completed [facility] SARS-COV-2 COVID-19 MODERNA 0.25ML BOOSTER VACCINE Unknown Completed [facility] Influenza Virus Vaccine Recomb Quad IM, Preserv and ABX Free 18-64 YRS Unknown Completed [facility] Influenza Virus Vaccine Quad IM, Preserv and ABX Free 6 MO-64 YRS (FLUCELVAX) Unknown Completed [facility] Pneumococcal 20 Conjugate, PCV20 (Prevnar 20) Unknown Completed [facility] Pneumococcal Polysaccharide, PPSV23 (PNEUMOVAX) Unknown Completed [facility] Influenza Virus Vaccine Quad .5 mL IM 6+ MO (FLUZONE/FLULAVAL/F LUARIX) Unknown Completed [facility] SARS-COV-2 COVID-19 MODERNA 12+ YRS VACCINE Unknown Completed [facility] SARS-COV-2 COVID-19 MODERNA 0.25ML BOOSTER VACCINE Unknown Completed [facility] Influenza Virus Vaccine Recomb Quad IM, Preserv and ABX Free 18-64 YRS Unknown Completed [facility] Influenza Virus Vaccine Quad IM, Preserv and ABX Free 6 MO-64 YRS (FLUCELVAX) Unknown Completed [facility] Pneumococcal 20 Conjugate, PCV20 (Prevnar 20) Unknown Completed [facility] Pneumococcal Polysaccharide, PPSV23 (PNEUMOVAX) Unknown Completed [facility] Influenza Virus Vaccine Quad .5 mL IM 6+ MO (FLUZONE/FLULAVAL/F LUARIX) Unknown Completed [facility] SARS-COV-2 COVID-19 MODERNA 0.25ML BOOSTER VACCINE Unknown Completed [facility] Influenza Virus Vaccine Recomb Quad IM, Preserv and ABX Free 18-64 YRS Unknown Completed [facility] Influenza Virus Vaccine Quad IM, Preserv and ABX Free 6 MO-64 YRS (FLUCELVAX) Unknown Completed [facility] Pneumococcal 20 Conjugate, PCV20 (Prevnar 20) Unknown Completed [facility] SARS-COV-2 COVID-19 MODERNA 12+ YRS VACCINE Unknown Completed [facility] Pneumococcal Polysaccharide, PPSV23 (PNEUMOVAX) Unknown Completed [facility] Influenza Virus Vaccine Quad .5 mL IM 6+ MO (FLUZONE/FLULAVAL/F LUARIX) Unknown Completed [facility] SARS-COV-2 COVID-19 MODERNA 12+ YRS VACCINE Unknown Completed [facility] SARS-COV-2 COVID-19 MODERNA 0.25ML BOOSTER VACCINE Unknown Completed [facility] Influenza Virus Vaccine Recomb Quad IM, Preserv and ABX Free 18-64 YRS Unknown Completed [facility] Influenza Virus Vaccine Quad IM, Preserv and ABX Free 6 MO-64 YRS (FLUCELVAX) Unknown Completed [facility] Pneumococcal 20 Conjugate, PCV20 (Prevnar 20) Unknown Completed [facility] Pneumococcal Polysaccharide, PPSV23 (PNEUMOVAX) Unknown Completed [facility] Influenza Virus Vaccine Quad .5 mL IM 6+ MO (FLUZONE/FLULAVAL/F LUARIX) Unknown Completed [facility] SARS-COV-2 COVID-19 MODERNA 12+ YRS VACCINE Unknown Completed [facility] SARS-COV-2 COVID-19 MODERNA 0.25ML BOOSTER VACCINE Unknown Completed [facility] Influenza Virus Vaccine Recomb Quad IM, Preserv and ABX Free 18-64 YRS Unknown Completed [facility] Influenza Virus Vaccine Quad IM, Preserv and ABX Free 6 MO-64 YRS (FLUCELVAX) Unknown Completed [facility] Pneumococcal 20 Conjugate, PCV20 (Prevnar 20) Unknown Completed [facility] Pneumococcal Polysaccharide, PPSV23 (PNEUMOVAX) Unknown Completed [facility] Influenza Virus Vaccine Quad .5 mL IM 6+ MO (FLUZONE/FLULAVAL/F LUARIX) Unknown Completed [facility] SARS-COV-2 COVID-19 MODERNA 12+ YRS VACCINE Unknown Completed [facility] SARS-COV-2 COVID-19 MODERNA 0.25ML BOOSTER VACCINE Unknown Completed [facility] Influenza Virus Vaccine Recomb Quad IM, Preserv and ABX Free 18-64 YRS Unknown Completed [facility] Influenza Virus Vaccine Quad IM, Preserv and ABX Free 6 MO-64 YRS (FLUCELVAX) Unknown Completed [facility] Pneumococcal 20 Conjugate, PCV20 (Prevnar 20) Unknown Completed [facility] Pneumococcal Polysaccharide, PPSV23 (PNEUMOVAX) Unknown Completed [facility] Influenza Virus Vaccine Quad .5 mL IM 6+ MO (FLUZONE/FLULAVAL/F LUARIX) Unknown Completed [facility] SARS-COV-2 COVID-19 MODERNA 12+ YRS VACCINE Unknown Completed [facility] SARS-COV-2 COVID-19 MODERNA 0.25ML BOOSTER VACCINE Unknown Completed [facility] Influenza Virus Vaccine Recomb Quad IM, Preserv and ABX Free 18-64 YRS Unknown Completed [facility] Influenza Virus Vaccine Quad IM, Preserv and ABX Free 6 MO-64 YRS (FLUCELVAX) Unknown Completed [facility] Pneumococcal 20 Conjugate, PCV20 (Prevnar 20) Unknown Completed [facility] Pneumococcal Polysaccharide, PPSV23 (PNEUMOVAX) Unknown Completed [facility] Influenza Virus Vaccine Quad .5 mL IM 6+ MO (FLUZONE/FLULAVAL/F LUARIX) Unknown Completed [facility] SARS-COV-2 COVID-19 MODERNA 12+ YRS VACCINE Unknown Completed [facility] SARS-COV-2 COVID-19 MODERNA 0.25ML BOOSTER VACCINE Unknown Completed [facility] Influenza Virus Vaccine Recomb Quad IM, Preserv and ABX Free 18-64 YRS Unknown Completed [facility] Influenza Virus Vaccine Quad IM, Preserv and ABX Free 6 MO-64 YRS (FLUCELVAX) Unknown Completed [facility] Pneumococcal 20 Conjugate, PCV20 (Prevnar 20) Unknown Completed [facility] Pneumococcal Polysaccharide, PPSV23 (PNEUMOVAX) Unknown Completed [facility] Influenza Virus Vaccine Quad .5 mL IM 6+ MO (FLUZONE/FLULAVAL/F LUARIX) Unknown Completed [facility] SARS-COV-2 COVID-19 MODERNA 12+ YRS VACCINE Unknown Completed [facility] SARS-COV-2 COVID-19 MODERNA 0.25ML BOOSTER VACCINE Unknown Completed [facility] Influenza Virus Vaccine Recomb Quad IM, Preserv and ABX Free 18-64 YRS Unknown Completed [facility] Influenza Virus Vaccine Quad IM, Preserv and ABX Free 6 MO-64 YRS (FLUCELVAX) Unknown Completed [facility] Pneumococcal 20 Conjugate, PCV20 (Prevnar 20) Unknown Completed [facility] Pneumococcal Polysaccharide, PPSV23 (PNEUMOVAX) Unknown Completed [facility] Influenza Virus Vaccine Quad .5 mL IM 6+ MO (FLUZONE/FLULAVAL/F LUARIX) Unknown Completed [facility] SARS-COV-2 COVID-19 MODERNA 12+ YRS VACCINE Unknown Completed [facility] SARS-COV-2 COVID-19 MODERNA 0.25ML BOOSTER VACCINE Unknown Completed [facility] Influenza Virus Vaccine Recomb Quad IM, Preserv and ABX Free 18-64 YRS Unknown Completed [facility] Influenza Virus Vaccine Quad IM, Preserv and ABX Free 6 MO-64 YRS (FLUCELVAX) Unknown Completed [facility] Pneumococcal 20 Conjugate, PCV20 (Prevnar 20) Unknown Completed [facility] Pneumococcal Polysaccharide, PPSV23 (PNEUMOVAX) Unknown Completed [facility] Influenza Virus Vaccine Quad .5 mL IM 6+ MO (FLUZONE/FLULAVAL/F LUARIX) Unknown Completed [facility] SARS-COV-2 COVID-19 MODERNA 12+ YRS VACCINE Unknown Completed [facility] SARS-COV-2 COVID-19 MODERNA 0.25ML BOOSTER VACCINE Unknown Completed [facility] Influenza Virus Vaccine Recomb Quad IM, Preserv and ABX Free 18-64 YRS Unknown Completed [facility] Influenza Virus Vaccine Quad IM, Preserv and ABX Free 6 MO-64 YRS (FLUCELVAX) Unknown Completed [facility] Pneumococcal 20 Conjugate, PCV20 (Prevnar 20) Unknown Completed [facility] Pneumococcal Polysaccharide, PPSV23 (PNEUMOVAX) Unknown Completed [facility] Influenza Virus Vaccine Quad .5 mL IM 6+ MO (FLUZONE/FLULAVAL/F LUARIX) Unknown Completed [facility] SARS-COV-2 COVID-19 MODERNA 12+ YRS VACCINE Unknown Completed [facility] SARS-COV-2 COVID-19 MODERNA 0.25ML BOOSTER VACCINE Unknown Completed [facility] Influenza Virus Vaccine Recomb Quad IM, Preserv and ABX Free 18-64 YRS Unknown Completed [facility] Influenza Virus Vaccine Quad IM, Preserv and ABX Free 6 MO-64 YRS (FLUCELVAX) Unknown Completed [facility] Pneumococcal 20 Conjugate, PCV20 (Prevnar 20) Unknown Completed [facility] Pneumococcal Polysaccharide, PPSV23 (PNEUMOVAX) Unknown Completed [facility] Influenza Virus Vaccine Quad .5 mL IM 6+ MO (FLUZONE/FLULAVAL/F LUARIX) Unknown Completed [facility] SARS-COV-2 COVID-19 MODERNA 12+ YRS VACCINE Unknown Completed [facility] SARS-COV-2 COVID-19 MODERNA 0.25ML BOOSTER VACCINE Unknown Completed [facility] Influenza Virus Vaccine Recomb Quad IM, Preserv and ABX Free 18-64 YRS Unknown Completed [facility] Influenza Virus Vaccine Quad IM, Preserv and ABX Free 6 MO-64 YRS (FLUCELVAX) Unknown Completed [facility] Pneumococcal 20 Conjugate, PCV20 (Prevnar 20) Unknown Completed [facility] Pneumococcal Polysaccharide, PPSV23 (PNEUMOVAX) Unknown Completed [facility] Influenza Virus Vaccine Quad .5 mL IM 6+ MO (FLUZONE/FLULAVAL/F LUARIX) Unknown Completed [facility] SARS-COV-2 COVID-19 MODERNA 12+ YRS VACCINE Unknown Completed [facility] SARS-COV-2 COVID-19 MODERNA 0.25ML BOOSTER VACCINE Unknown Completed [facility] Influenza Virus Vaccine Recomb Quad IM, Preserv and ABX Free 18-64 YRS Unknown Completed [facility] Influenza Virus Vaccine Quad IM, Preserv and ABX Free 6 MO-64 YRS (FLUCELVAX) Unknown Completed [facility] Pneumococcal 20 Conjugate, PCV20 (Prevnar 20) Unknown Completed [facility] Pneumococcal Polysaccharide, PPSV23 (PNEUMOVAX) Unknown Completed [facility] Influenza Virus Vaccine Quad .5 mL IM 6+ MO (FLUZONE/FLULAVAL/F LUARIX) Unknown Completed [facility] SARS-COV-2 COVID-19 MODERNA 12+ YRS VACCINE Unknown Completed [facility] SARS-COV-2 COVID-19 MODERNA 0.25ML BOOSTER VACCINE Unknown Completed [facility] Influenza Virus Vaccine Recomb Quad IM, Preserv and ABX Free 18-64 YRS Unknown Completed [facility] Influenza Virus Vaccine Quad IM, Preserv and ABX Free 6 MO-64 YRS (FLUCELVAX) Unknown Completed [facility] Pneumococcal 20 Conjugate, PCV20 (Prevnar 20) Unknown Completed [facility] Pneumococcal Polysaccharide, PPSV23 (PNEUMOVAX) Unknown Completed [facility] Influenza Virus Vaccine Quad .5 mL IM 6+ MO (FLUZONE/FLULAVAL/F LUARIX) Unknown Completed [facility] SARS-COV-2 COVID-19 MODERNA 12+ YRS VACCINE Unknown Completed [facility] SARS-COV-2 COVID-19 MODERNA 0.25ML BOOSTER VACCINE Unknown Completed [facility] Influenza Virus Vaccine Recomb Quad IM, Preserv and ABX Free 18-64 YRS Unknown Completed [facility] Influenza Virus Vaccine Quad IM, Preserv and ABX Free 6 MO-64 YRS (FLUCELVAX) Unknown Completed [facility] Pneumococcal 20 Conjugate, PCV20 (Prevnar 20) Unknown Completed [facility] Pneumococcal Polysaccharide, PPSV23 (PNEUMOVAX) Unknown Completed [facility] Influenza Virus Vaccine Quad .5 mL IM 6+ MO (FLUZONE/FLULAVAL/F LUARIX) Unknown Completed [facility] SARS-COV-2 COVID-19 MODERNA 12+ YRS VACCINE Unknown Completed [facility] SARS-COV-2 COVID-19 MODERNA 0.25ML BOOSTER VACCINE Unknown Completed [facility] Influenza Virus Vaccine Recomb Quad IM, Preserv and ABX Free 18-64 YRS Unknown Completed [facility] Influenza Virus Vaccine Quad IM, Preserv and ABX Free 6 MO-64 YRS (FLUCELVAX) Unknown Completed [facility] Pneumococcal 20 Conjugate, PCV20 (Prevnar 20) Unknown Completed [facility] Pneumococcal Polysaccharide, PPSV23 (PNEUMOVAX) Unknown Completed [facility] Influenza Virus Vaccine Quad .5 mL IM 6+ MO (FLUZONE/FLULAVAL/F LUARIX) Unknown Completed [facility] SARS-COV-2 COVID-19 MODERNA 12+ YRS VACCINE Unknown Completed [facility] SARS-COV-2 COVID-19 MODERNA 0.25ML BOOSTER VACCINE Unknown Completed [facility] Influenza Virus Vaccine Recomb Quad IM, Preserv and ABX Free 18-64 YRS Unknown Completed [facility] Influenza Virus Vaccine Quad IM, Preserv and ABX Free 6 MO-64 YRS (FLUCELVAX) Unknown Completed [facility] Pneumococcal 20 Conjugate, PCV20 (Prevnar 20) Unknown Completed [facility] Pneumococcal Polysaccharide, PPSV23 (PNEUMOVAX) Unknown Completed [facility] Influenza Virus Vaccine Quad .5 mL IM 6+ MO (FLUZONE/FLULAVAL/F LUARIX) Unknown Completed [facility] SARS-COV-2 COVID-19 MODERNA 12+ YRS VACCINE Unknown Completed [facility] SARS-COV-2 COVID-19 MODERNA 0.25ML BOOSTER VACCINE Unknown Completed [facility] Influenza Virus Vaccine Recomb Quad IM, Preserv and ABX Free 18-64 YRS Unknown Completed [facility] Influenza Virus Vaccine Quad IM, Preserv and ABX Free 6 MO-64 YRS (FLUCELVAX) Unknown Completed [facility] Pneumococcal 20 Conjugate, PCV20 (Prevnar 20) Unknown Completed [facility] Pneumococcal Polysaccharide, PPSV23 (PNEUMOVAX) Unknown Completed [facility] Influenza Virus Vaccine Quad .5 mL IM 6+ MO (FLUZONE/FLULAVAL/F LUARIX) Unknown Completed [facility] SARS-COV-2 COVID-19 MODERNA 12+ YRS VACCINE Unknown Completed [facility] SARS-COV-2 COVID-19 MODERNA 0.25ML BOOSTER VACCINE Unknown Completed [facility] Influenza Virus Vaccine Recomb Quad IM, Preserv and ABX Free 18-64 YRS Unknown Completed [facility] Influenza Virus Vaccine Quad IM, Preserv and ABX Free 6 MO-64 YRS (FLUCELVAX) Unknown Completed [facility] Pneumococcal 20 Conjugate, PCV20 (Prevnar 20) Unknown Completed [facility] Pneumococcal Polysaccharide, PPSV23 (PNEUMOVAX) Unknown Completed [facility] Influenza Virus Vaccine Quad .5 mL IM 6+ MO (FLUZONE/FLULAVAL/F LUARIX) Unknown Completed [facility] SARS-COV-2 COVID-19 MODERNA 0.25ML BOOSTER VACCINE Unknown Completed [facility] Influenza Virus Vaccine Recomb Quad IM, Preserv and ABX Free 18-64 YRS Unknown Completed [facility] Influenza Virus Vaccine Quad IM, Preserv and ABX Free 6 MO-64 YRS (FLUCELVAX) Unknown Completed [facility] Pneumococcal 20 Conjugate, PCV20 (Prevnar 20) Unknown Completed [facility] Pneumococcal Polysaccharide, PPSV23 (PNEUMOVAX) Unknown Completed [facility] Influenza Virus Vaccine Quad .5 mL IM 6+ MO (FLUZONE/FLULAVAL/F LUARIX) Unknown Completed [facility] SARS-COV-2 COVID-19 MODERNA 12+ YRS VACCINE Unknown Completed [facility] SARS-COV-2 COVID-19 MODERNA 0.25ML BOOSTER VACCINE Unknown Completed [facility] Influenza Virus Vaccine Recomb Quad IM, Preserv and ABX Free 18-64 YRS Unknown Completed [facility] Influenza Virus Vaccine Quad IM, Preserv and ABX Free 6 MO-64 YRS (FLUCELVAX) Unknown Completed [facility] Pneumococcal 20 Conjugate, PCV20 (Prevnar 20) Unknown Completed [facility] SARS-COV-2 COVID-19 MODERNA 12+ YRS VACCINE Unknown Completed [facility] Pneumococcal Polysaccharide, PPSV23 (PNEUMOVAX) Unknown Completed [facility] Influenza Virus Vaccine Quad .5 mL IM 6+ MO (FLUZONE/FLULAVAL/F LUARIX) Unknown Completed [facility] SARS-COV-2 COVID-19 MODERNA 12+ YRS VACCINE Unknown Completed [facility] SARS-COV-2 COVID-19 MODERNA 0.25ML BOOSTER VACCINE Unknown Completed [facility] Influenza Virus Vaccine Recomb Quad IM, Preserv and ABX Free 18-64 YRS Unknown Completed [facility] Influenza Virus Vaccine Quad IM, Preserv and ABX Free 6 MO-64 YRS (FLUCELVAX) Unknown Completed [facility] Pneumococcal 20 Conjugate, PCV20 (Prevnar 20) Unknown Completed [facility] Pneumococcal Polysaccharide, PPSV23 (PNEUMOVAX) Unknown Completed [facility] Influenza Virus Vaccine Quad .5 mL IM 6+ MO (FLUZONE/FLULAVAL/F LUARIX) Unknown Completed [facility] SARS-COV-2 COVID-19 MODERNA 12+ YRS VACCINE Unknown Completed [facility] SARS-COV-2 COVID-19 MODERNA 0.25ML BOOSTER VACCINE Unknown Completed [facility] Influenza Virus Vaccine Recomb Quad IM, Preserv and ABX Free 18-64 YRS Unknown Completed [facility] Influenza Virus Vaccine Quad IM, Preserv and ABX Free 6 MO-64 YRS (FLUCELVAX) Unknown Completed [facility] Pneumococcal 20 Conjugate, PCV20 (Prevnar 20) Unknown Completed [facility] Pneumococcal Polysaccharide, PPSV23 (PNEUMOVAX) Unknown Completed [facility] Influenza Virus Vaccine Quad .5 mL IM 6+ MO (FLUZONE/FLULAVAL/F LUARIX) Unknown Completed [facility] SARS-COV-2 COVID-19 MODERNA 12+ YRS VACCINE Unknown Completed [facility] SARS-COV-2 COVID-19 MODERNA 0.25ML BOOSTER VACCINE Unknown Completed [facility] Influenza Virus Vaccine Recomb Quad IM, Preserv and ABX Free 18-64 YRS Unknown Completed [facility] Influenza Virus Vaccine Quad IM, Preserv and ABX Free 6 MO-64 YRS (FLUCELVAX) Unknown Completed [facility] Pneumococcal 20 Conjugate, PCV20 (Prevnar 20) Unknown Completed [facility] Pneumococcal Polysaccharide, PPSV23 (PNEUMOVAX) Unknown Completed [facility] Influenza Virus Vaccine Quad .5 mL IM 6+ MO (FLUZONE/FLULAVAL/F LUARIX) Unknown Completed [facility] SARS-COV-2 COVID-19 MODERNA 12+ YRS VACCINE Unknown Completed [facility] SARS-COV-2 COVID-19 MODERNA 0.25ML BOOSTER VACCINE Unknown Completed [facility] Influenza Virus Vaccine Recomb Quad IM, Preserv and ABX Free 18-64 YRS Unknown Completed [facility] Influenza Virus Vaccine Quad IM, Preserv and ABX Free 6 MO-64 YRS (FLUCELVAX) Unknown Completed [facility] Pneumococcal 20 Conjugate, PCV20 (Prevnar 20) Unknown Completed [facility] Pneumococcal Polysaccharide, PPSV23 (PNEUMOVAX) Unknown Completed [facility] Influenza Virus Vaccine Quad .5 mL IM 6+ MO (FLUZONE/FLULAVAL/F LUARIX) Unknown Completed [facility] SARS-COV-2 COVID-19 MODERNA 12+ YRS VACCINE Unknown Completed [facility] SARS-COV-2 COVID-19 MODERNA 0.25ML BOOSTER VACCINE Unknown Completed [facility] Influenza Virus Vaccine Recomb Quad IM, Preserv and ABX Free 18-64 YRS Unknown Completed [facility] Influenza Virus Vaccine Quad IM, Preserv and ABX Free 6 MO-64 YRS (FLUCELVAX) Unknown Completed [facility] Pneumococcal 20 Conjugate, PCV20 (Prevnar 20) Unknown Completed [facility] Pneumococcal Polysaccharide, PPSV23 (PNEUMOVAX) Unknown Completed [facility] Influenza Virus Vaccine Quad .5 mL IM 6+ MO (FLUZONE/FLULAVAL/F LUARIX) Unknown Completed [facility] SARS-COV-2 COVID-19 MODERNA 0.25ML BOOSTER VACCINE Unknown Completed [facility] Influenza Virus Vaccine Recomb Quad IM, Preserv and ABX Free 18-64 YRS Unknown Completed [facility] Influenza Virus Vaccine Quad IM, Preserv and ABX Free 6 MO-64 YRS (FLUCELVAX) Unknown Completed [facility] Pneumococcal 20 Conjugate, PCV20 (Prevnar 20) Unknown Completed [facility] SARS-COV-2 COVID-19 MODERNA 12+ YRS VACCINE Unknown Completed [facility] Pneumococcal Polysaccharide, PPSV23 (PNEUMOVAX) Unknown Completed [facility] Influenza Virus Vaccine Quad .5 mL IM 6+ MO (FLUZONE/FLULAVAL/F LUARIX) Unknown Completed [facility] SARS-COV-2 COVID-19 MODERNA 12+ YRS VACCINE Unknown Completed [facility] SARS-COV-2 COVID-19 MODERNA 0.25ML BOOSTER VACCINE Unknown Completed [facility] Influenza Virus Vaccine Recomb Quad IM, Preserv and ABX Free 18-64 YRS Unknown Completed [facility] Influenza Virus Vaccine Quad IM, Preserv and ABX Free 6 MO-64 YRS (FLUCELVAX) Unknown Completed [facility] Pneumococcal 20 Conjugate, PCV20 (Prevnar 20) Unknown Completed [facility] Pneumococcal Polysaccharide, PPSV23 (PNEUMOVAX) Unknown Completed [facility] Influenza Virus Vaccine Quad .5 mL IM 6+ MO (FLUZONE/FLULAVAL/F LUARIX) Unknown Completed [facility] SARS-COV-2 COVID-19 MODERNA 12+ YRS VACCINE Unknown Completed [facility] SARS-COV-2 COVID-19 MODERNA 0.25ML BOOSTER VACCINE Unknown Completed [facility] Influenza Virus Vaccine Recomb Quad IM, Preserv and ABX Free 18-64 YRS Unknown Completed [facility] Influenza Virus Vaccine Quad IM, Preserv and ABX Free 6 MO-64 YRS (FLUCELVAX) Unknown Completed [facility] Pneumococcal 20 Conjugate, PCV20 (Prevnar 20) Unknown Completed [facility] Pneumococcal Polysaccharide, PPSV23 (PNEUMOVAX) Unknown Completed [facility] Influenza Virus Vaccine Quad .5 mL IM 6+ MO (FLUZONE/FLULAVAL/F LUARIX) Unknown Completed [facility] SARS-COV-2 COVID-19 MODERNA 12+ YRS VACCINE Unknown Completed [facility] SARS-COV-2 COVID-19 MODERNA 0.25ML BOOSTER VACCINE Unknown Completed [facility] Influenza Virus Vaccine Recomb Quad IM, Preserv and ABX Free 18-64 YRS Unknown Completed [facility] Influenza Virus Vaccine Quad IM, Preserv and ABX Free 6 MO-64 YRS (FLUCELVAX) Unknown Completed [facility] Pneumococcal 20 Conjugate, PCV20 (Prevnar 20) Unknown Completed [facility] Pneumococcal Polysaccharide, PPSV23 (PNEUMOVAX) Unknown Completed [facility] Influenza Virus Vaccine Quad .5 mL IM 6+ MO (FLUZONE/FLULAVAL/F LUARIX) Unknown Completed [facility] SARS-COV-2 COVID-19 MODERNA 12+ YRS VACCINE Unknown Completed [facility] SARS-COV-2 COVID-19 MODERNA 0.25ML BOOSTER VACCINE Unknown Completed [facility] Influenza Virus Vaccine Recomb Quad IM, Preserv and ABX Free 18-64 YRS Unknown Completed [facility] Influenza Virus Vaccine Quad IM, Preserv and ABX Free 6 MO-64 YRS (FLUCELVAX) Unknown Completed [facility] Pneumococcal 20 Conjugate, PCV20 (Prevnar 20) Unknown Completed [facility] Pneumococcal Polysaccharide, PPSV23 (PNEUMOVAX) Unknown Completed [facility] Influenza Virus Vaccine Quad .5 mL IM 6+ MO (FLUZONE/FLULAVAL/F LUARIX) Unknown Completed [facility] SARS-COV-2 COVID-19 MODERNA 12+ YRS VACCINE Unknown Completed [facility] SARS-COV-2 COVID-19 MODERNA 0.25ML BOOSTER VACCINE Unknown Completed [facility] Influenza Virus Vaccine Recomb Quad IM, Preserv and ABX Free 18-64 YRS Unknown Completed [facility] Influenza Virus Vaccine Quad IM, Preserv and ABX Free 6 MO-64 YRS (FLUCELVAX) Unknown Completed [facility] Pneumococcal 20 Conjugate, PCV20 (Prevnar 20) Unknown Completed [facility] Pneumococcal Polysaccharide, PPSV23 (PNEUMOVAX) Unknown Completed [facility] Influenza Virus Vaccine Quad .5 mL IM 6+ MO (FLUZONE/FLULAVAL/F LUARIX) Unknown Completed [facility] SARS-COV-2 COVID-19 MODERNA 12+ YRS VACCINE Unknown Completed [facility] SARS-COV-2 COVID-19 MODERNA 0.25ML BOOSTER VACCINE Unknown Completed [facility] Influenza Virus Vaccine Recomb Quad IM, Preserv and ABX Free 18-64 YRS Unknown Completed [facility] Influenza Virus Vaccine Quad IM, Preserv and ABX Free 6 MO-64 YRS (FLUCELVAX) Unknown Completed [facility] Pneumococcal 20 Conjugate, PCV20 (Prevnar 20) Unknown Completed [facility] Pneumococcal Polysaccharide, PPSV23 (PNEUMOVAX) Unknown Completed [facility] Influenza Virus Vaccine Quad .5 mL IM 6+ MO (FLUZONE/FLULAVAL/F LUARIX) Unknown Completed [facility] SARS-COV-2 COVID-19 MODERNA 12+ YRS VACCINE Unknown Completed [facility] SARS-COV-2 COVID-19 MODERNA 0.25ML BOOSTER VACCINE Unknown Completed [facility] Influenza Virus Vaccine Recomb Quad IM, Preserv and ABX Free 18-64 YRS Unknown Completed [facility] Influenza Virus Vaccine Quad IM, Preserv and ABX Free 6 MO-64 YRS (FLUCELVAX) Unknown Completed [facility] Pneumococcal 20 Conjugate, PCV20 (Prevnar 20) Unknown Completed [facility] Pneumococcal Polysaccharide, PPSV23 (PNEUMOVAX) Unknown Completed [facility] Influenza Virus Vaccine Quad .5 mL IM 6+ MO (FLUZONE/FLULAVAL/F LUARIX) Unknown Completed [facility] SARS-COV-2 COVID-19 MODERNA 12+ YRS VACCINE Unknown Completed [facility] SARS-COV-2 COVID-19 MODERNA 0.25ML BOOSTER VACCINE Unknown Completed [facility] Influenza Virus Vaccine Recomb Quad IM, Preserv and ABX Free 18-64 YRS Unknown Completed [facility] Influenza Virus Vaccine Quad IM, Preserv and ABX Free 6 MO-64 YRS (FLUCELVAX) Unknown Completed [facility] Pneumococcal 20 Conjugate, PCV20 (Prevnar 20) Unknown Completed [facility] Pneumococcal Polysaccharide, PPSV23 (PNEUMOVAX) Unknown Completed [facility] Influenza Virus Vaccine Quad .5 mL IM 6+ MO (FLUZONE/FLULAVAL/F LUARIX) Unknown Completed [facility] SARS-COV-2 COVID-19 MODERNA 12+ YRS VACCINE Unknown Completed [facility] SARS-COV-2 COVID-19 MODERNA 0.25ML BOOSTER VACCINE Unknown Completed [facility] Influenza Virus Vaccine Recomb Quad IM, Preserv and ABX Free 18-64 YRS Unknown Completed [facility] Influenza Virus Vaccine Quad IM, Preserv and ABX Free 6 MO-64 YRS (FLUCELVAX) Unknown Completed [facility] Pneumococcal 20 Conjugate, PCV20 (Prevnar 20) Unknown Completed [facility] Pneumococcal Polysaccharide, PPSV23 (PNEUMOVAX) Unknown Completed [facility] Influenza Virus Vaccine Quad .5 mL IM 6+ MO (FLUZONE/FLULAVAL/F LUARIX) Unknown Completed [facility] SARS-COV-2 COVID-19 MODERNA 0.25ML BOOSTER VACCINE Unknown Completed [facility] Influenza Virus Vaccine Recomb Quad IM, Preserv and ABX Free 18-64 YRS Unknown Completed [facility] Influenza Virus Vaccine Quad IM, Preserv and ABX Free 6 MO-64 YRS (FLUCELVAX) Unknown Completed [facility] Pneumococcal 20 Conjugate, PCV20 (Prevnar 20) Unknown Completed [facility] SARS-COV-2 COVID-19 MODERNA 12+ YRS VACCINE Unknown Completed [facility] Pneumococcal Polysaccharide, PPSV23 (PNEUMOVAX) Unknown Completed [facility] Influenza Virus Vaccine Quad .5 mL IM 6+ MO (FLUZONE/FLULAVAL/F LUARIX) Unknown Completed [facility] SARS-COV-2 COVID-19 MODERNA 0.25ML BOOSTER VACCINE Unknown Completed [facility] Influenza Virus Vaccine Recomb Quad IM, Preserv and ABX Free 18-64 YRS Unknown Completed [facility] Influenza Virus Vaccine Quad IM, Preserv and ABX Free 6 MO-64 YRS (FLUCELVAX) Unknown Completed [facility] Pneumococcal 20 Conjugate, PCV20 (Prevnar 20) Unknown Completed [facility] Pneumococcal Polysaccharide, PPSV23 (PNEUMOVAX) Unknown Completed [facility] Influenza Virus Vaccine Quad .5 mL IM 6+ MO (FLUZONE/FLULAVAL/F LUARIX) Unknown Completed [facility] SARS-COV-2 COVID-19 MODERNA 12+ YRS VACCINE Unknown Completed [facility] SARS-COV-2 COVID-19 MODERNA 0.25ML BOOSTER VACCINE Unknown Completed [facility] Influenza Virus Vaccine Recomb Quad IM, Preserv and ABX Free 18-64 YRS Unknown Completed [facility] Influenza Virus Vaccine Quad IM, Preserv and ABX Free 6 MO-64 YRS (FLUCELVAX) Unknown Completed [facility] Pneumococcal 20 Conjugate, PCV20 (Prevnar 20) Unknown Completed [facility] SARS-COV-2 COVID-19 MODERNA 12+ YRS VACCINE Unknown Completed [facility] Pneumococcal Polysaccharide, PPSV23 (PNEUMOVAX) Unknown Completed [facility] Influenza Virus Vaccine Quad .5 mL IM 6+ MO (FLUZONE/FLULAVAL/F LUARIX) Unknown Completed [facility] SARS-COV-2 COVID-19 MODERNA 12+ YRS VACCINE Unknown Completed [facility] SARS-COV-2 COVID-19 MODERNA 0.25ML BOOSTER VACCINE Unknown Completed [facility] Influenza Virus Vaccine Recomb Quad IM, Preserv and ABX Free 18-64 YRS Unknown Completed [facility] Influenza Virus Vaccine Quad IM, Preserv and ABX Free 6 MO-64 YRS (FLUCELVAX) Unknown Completed [facility] Pneumococcal 20 Conjugate, PCV20 (Prevnar 20) Unknown Completed [facility] Pneumococcal Polysaccharide, PPSV23 (PNEUMOVAX) Unknown Completed [facility] Influenza Virus Vaccine Quad .5 mL IM 6+ MO (FLUZONE/FLULAVAL/F LUARIX) Unknown Completed [facility] SARS-COV-2 COVID-19 MODERNA 12+ YRS VACCINE Unknown Completed [facility] SARS-COV-2 COVID-19 MODERNA 0.25ML BOOSTER VACCINE Unknown Completed [facility] Influenza Virus Vaccine Recomb Quad IM, Preserv and ABX Free 18-64 YRS Unknown Completed [facility] Influenza Virus Vaccine Quad IM, Preserv and ABX Free 6 MO-64 YRS (FLUCELVAX) Unknown Completed [facility] Pneumococcal 20 Conjugate, PCV20 (Prevnar 20) Unknown Completed [facility] Pneumococcal Polysaccharide, PPSV23 (PNEUMOVAX) Unknown Completed [facility] Influenza Virus Vaccine Quad .5 mL IM 6+ MO (FLUZONE/FLULAVAL/F LUARIX) Unknown Completed [facility] SARS-COV-2 COVID-19 MODERNA 12+ YRS VACCINE Unknown Completed [facility] SARS-COV-2 COVID-19 MODERNA 0.25ML BOOSTER VACCINE Unknown Completed [facility] Influenza Virus Vaccine Recomb Quad IM, Preserv and ABX Free 18-64 YRS Unknown Completed [facility] Influenza Virus Vaccine Quad IM, Preserv and ABX Free 6 MO-64 YRS (FLUCELVAX) Unknown Completed [facility] Pneumococcal 20 Conjugate, PCV20 (Prevnar 20) Unknown Completed [facility] Pneumococcal Polysaccharide, PPSV23 (PNEUMOVAX) Unknown Completed [facility] Influenza Virus Vaccine Quad .5 mL IM 6+ MO (FLUZONE/FLULAVAL/F LUARIX) Unknown Completed [facility] SARS-COV-2 COVID-19 MODERNA 12+ YRS VACCINE Unknown Completed [facility] SARS-COV-2 COVID-19 MODERNA 0.25ML BOOSTER VACCINE Unknown Completed [facility] Influenza Virus Vaccine Recomb Quad IM, Preserv and ABX Free 18-64 YRS Unknown Completed [facility] Influenza Virus Vaccine Quad IM, Preserv and ABX Free 6 MO-64 YRS (FLUCELVAX) Unknown Completed [facility] Pneumococcal 20 Conjugate, PCV20 (Prevnar 20) Unknown Completed [facility] Pneumococcal Polysaccharide, PPSV23 (PNEUMOVAX) Unknown Completed [facility] Influenza Virus Vaccine Quad .5 mL IM 6+ MO (FLUZONE/FLULAVAL/F LUARIX) Unknown Completed [facility] SARS-COV-2 COVID-19 MODERNA 12+ YRS VACCINE Unknown Completed [facility] SARS-COV-2 COVID-19 MODERNA 0.25ML BOOSTER VACCINE Unknown Completed [facility] Influenza Virus Vaccine Recomb Quad IM, Preserv and ABX Free 18-64 YRS Unknown Completed [facility] Influenza Virus Vaccine Quad IM, Preserv and ABX Free 6 MO-64 YRS (FLUCELVAX) Unknown Completed [facility] Pneumococcal 20 Conjugate, PCV20 (Prevnar 20) Unknown Completed [facility] Pneumococcal Polysaccharide, PPSV23 (PNEUMOVAX) Unknown Completed [facility] Influenza Virus Vaccine Quad .5 mL IM 6+ MO (FLUZONE/FLULAVAL/F LUARIX) Unknown Completed [facility] SARS-COV-2 COVID-19 MODERNA 12+ YRS VACCINE Unknown Completed [facility] SARS-COV-2 COVID-19 MODERNA 0.25ML BOOSTER VACCINE Unknown Completed [facility] Influenza Virus Vaccine Recomb Quad IM, Preserv and ABX Free 18-64 YRS Unknown Completed [facility] Influenza Virus Vaccine Quad IM, Preserv and ABX Free 6 MO-64 YRS (FLUCELVAX) Unknown Completed [facility] Pneumococcal 20 Conjugate, PCV20 (Prevnar 20) Unknown Completed [facility] Pneumococcal Polysaccharide, PPSV23 (PNEUMOVAX) Unknown Completed [facility] Influenza Virus Vaccine Quad .5 mL IM 6+ MO (FLUZONE/FLULAVAL/F LUARIX) Unknown Completed [facility] SARS-COV-2 COVID-19 MODERNA 12+ YRS VACCINE Unknown Completed [facility] SARS-COV-2 COVID-19 MODERNA 0.25ML BOOSTER VACCINE Unknown Completed [facility] Influenza Virus Vaccine Recomb Quad IM, Preserv and ABX Free 18-64 YRS Unknown Completed [facility] Influenza Virus Vaccine Quad IM, Preserv and ABX Free 6 MO-64 YRS (FLUCELVAX) Unknown Completed [facility] Pneumococcal 20 Conjugate, PCV20 (Prevnar 20) Unknown Completed [facility] Pneumococcal Polysaccharide, PPSV23 (PNEUMOVAX) Unknown Completed [facility] Influenza Virus Vaccine Quad .5 mL IM 6+ MO (FLUZONE/FLULAVAL/F LUARIX) Unknown Completed [facility] SARS-COV-2 COVID-19 MODERNA 12+ YRS VACCINE Unknown Completed [facility] SARS-COV-2 COVID-19 MODERNA 0.25ML BOOSTER VACCINE Unknown Completed [facility] Influenza Virus Vaccine Recomb Quad IM, Preserv and ABX Free 18-64 YRS Unknown Completed [facility] Influenza Virus Vaccine Quad IM, Preserv and ABX Free 6 MO-64 YRS (FLUCELVAX) Unknown Completed [facility] Pneumococcal 20 Conjugate, PCV20 (Prevnar 20) Unknown Completed [facility] Pneumococcal Polysaccharide, PPSV23 (PNEUMOVAX) Unknown Completed [facility] Influenza Virus Vaccine Quad .5 mL IM 6+ MO (FLUZONE/FLULAVAL/F LUARIX) Unknown Completed [facility] SARS-COV-2 COVID-19 MODERNA 12+ YRS VACCINE Unknown Completed [facility] SARS-COV-2 COVID-19 MODERNA 0.25ML BOOSTER VACCINE Unknown Completed [facility] Influenza Virus Vaccine Recomb Quad IM, Preserv and ABX Free 18-64 YRS Unknown Completed [facility] Influenza Virus Vaccine Quad IM, Preserv and ABX Free 6 MO-64 YRS (FLUCELVAX) Unknown Completed [facility] Pneumococcal 20 Conjugate, PCV20 (Prevnar 20) Unknown Completed [facility] Pneumococcal Polysaccharide, PPSV23 (PNEUMOVAX) Unknown Completed [facility] Influenza Virus Vaccine Quad .5 mL IM 6+ MO (FLUZONE/FLULAVAL/F LUARIX) Unknown Completed [facility] SARS-COV-2 COVID-19 MODERNA 12+ YRS VACCINE Unknown Completed [facility] SARS-COV-2 COVID-19 MODERNA 0.25ML BOOSTER VACCINE Unknown Completed [facility] Influenza Virus Vaccine Recomb Quad IM, Preserv and ABX Free 18-64 YRS Unknown Completed [facility] Influenza Virus Vaccine Quad IM, Preserv and ABX Free 6 MO-64 YRS (FLUCELVAX) Unknown Completed [facility] Pneumococcal 20 Conjugate, PCV20 (Prevnar 20) Unknown Completed [facility] Pneumococcal Polysaccharide, PPSV23 (PNEUMOVAX) Unknown Completed [facility] Influenza Virus Vaccine Quad .5 mL IM 6+ MO (FLUZONE/FLULAVAL/F LUARIX) Unknown Completed [facility] SARS-COV-2 COVID-19 MODERNA 12+ YRS VACCINE Unknown Completed [facility] SARS-COV-2 COVID-19 MODERNA 0.25ML BOOSTER VACCINE Unknown Completed [facility] Influenza Virus Vaccine Recomb Quad IM, Preserv and ABX Free 18-64 YRS Unknown Completed [facility] Influenza Virus Vaccine Quad IM, Preserv and ABX Free 6 MO-64 YRS (FLUCELVAX) Unknown Completed [facility] Pneumococcal 20 Conjugate, PCV20 (Prevnar 20) Unknown Completed [facility] Pneumococcal Polysaccharide, PPSV23 (PNEUMOVAX) Unknown Completed [facility] Influenza Virus Vaccine Quad .5 mL IM 6+ MO (FLUZONE/FLULAVAL/F LUARIX) Unknown Completed [facility] SARS-COV-2 COVID-19 MODERNA 12+ YRS VACCINE Unknown Completed [facility] SARS-COV-2 COVID-19 MODERNA 0.25ML BOOSTER VACCINE Unknown Completed [facility] Influenza Virus Vaccine Recomb Quad IM, Preserv and ABX Free 18-64 YRS Unknown Completed [facility] Influenza Virus Vaccine Quad IM, Preserv and ABX Free 6 MO-64 YRS (FLUCELVAX) Unknown Completed [facility] Pneumococcal 20 Conjugate, PCV20 (Prevnar 20) Unknown Completed [facility] Pneumococcal Polysaccharide, PPSV23 (PNEUMOVAX) Unknown Completed [facility] Influenza Virus Vaccine Quad .5 mL IM 6+ MO (FLUZONE/FLULAVAL/F LUARIX) Unknown Completed [facility] SARS-COV-2 COVID-19 MODERNA 12+ YRS VACCINE Unknown Completed [facility] SARS-COV-2 COVID-19 MODERNA 0.25ML BOOSTER VACCINE Unknown Completed [facility] Influenza Virus Vaccine Recomb Quad IM, Preserv and ABX Free 18-64 YRS Unknown Completed [facility] Influenza Virus Vaccine Quad IM, Preserv and ABX Free 6 MO-64 YRS (FLUCELVAX) Unknown Completed [facility] Pneumococcal 20 Conjugate, PCV20 (Prevnar 20) Unknown Completed [facility] Pneumococcal Polysaccharide, PPSV23 (PNEUMOVAX) Unknown Completed [facility] Influenza Virus Vaccine Quad .5 mL IM 6+ MO (FLUZONE/FLULAVAL/F LUARIX) Unknown Completed [facility] SARS-COV-2 COVID-19 MODERNA 12+ YRS VACCINE Unknown Completed [facility] SARS-COV-2 COVID-19 MODERNA 0.25ML BOOSTER VACCINE Unknown Completed [facility] Influenza Virus Vaccine Recomb Quad IM, Preserv and ABX Free 18-64 YRS Unknown Completed [facility] Influenza Virus Vaccine Quad IM, Preserv and ABX Free 6 MO-64 YRS (FLUCELVAX) Unknown Completed [facility] Pneumococcal 20 Conjugate, PCV20 (Prevnar 20) Unknown Completed [facility] Pneumococcal Polysaccharide, PPSV23 (PNEUMOVAX) Unknown Completed [facility] Influenza Virus Vaccine Quad .5 mL IM 6+ MO (FLUZONE/FLULAVAL/F LUARIX) Unknown Completed [facility] SARS-COV-2 COVID-19 MODERNA 12+ YRS VACCINE Unknown Completed [facility] SARS-COV-2 COVID-19 MODERNA 0.25ML BOOSTER VACCINE Unknown Completed [facility] Influenza Virus Vaccine Recomb Quad IM, Preserv and ABX Free 18-64 YRS Unknown Completed [facility] Influenza Virus Vaccine Quad IM, Preserv and ABX Free 6 MO-64 YRS (FLUCELVAX) Unknown Completed [facility] Pneumococcal 20 Conjugate, PCV20 (Prevnar 20) Unknown Completed [facility] Pneumococcal Polysaccharide, PPSV23 (PNEUMOVAX) Unknown Completed [facility] Influenza Virus Vaccine Quad .5 mL IM 6+ MO (FLUZONE/FLULAVAL/F LUARIX) Unknown Completed [facility] SARS-COV-2 COVID-19 MODERNA 12+ YRS VACCINE Unknown Completed [facility] SARS-COV-2 COVID-19 MODERNA 0.25ML BOOSTER VACCINE Unknown Completed [facility] Influenza Virus Vaccine Recomb Quad IM, Preserv and ABX Free 18-64 YRS Unknown Completed [facility] Influenza Virus Vaccine Quad IM, Preserv and ABX Free 6 MO-64 YRS (FLUCELVAX) Unknown Completed [facility] Pneumococcal 20 Conjugate, PCV20 (Prevnar 20) Unknown Completed [facility] Pneumococcal Polysaccharide, PPSV23 (PNEUMOVAX) Unknown Completed [facility] Influenza Virus Vaccine Quad .5 mL IM 6+ MO (FLUZONE/FLULAVAL/F LUARIX) Unknown Completed [facility] SARS-COV-2 COVID-19 MODERNA 12+ YRS VACCINE Unknown Completed [facility] SARS-COV-2 COVID-19 MODERNA 0.25ML BOOSTER VACCINE Unknown Completed [facility] Influenza Virus Vaccine Recomb Quad IM, Preserv and ABX Free 18-64 YRS Unknown Completed [facility] Influenza Virus Vaccine Quad IM, Preserv and ABX Free 6 MO-64 YRS (FLUCELVAX) Unknown Completed [facility] Pneumococcal 20 Conjugate, PCV20 (Prevnar 20) Unknown Completed [facility] Vital Signs Vital Name Observation Time Observation Value Comments S ource Systolic blood pressure 2024-03-09 15:19:00 147 mm[Hg] [facility] Diastolic blood pressure 2024-03-09 15:19:00 77 mm[Hg] [facility] Heart rate 2024-03-09 15:18:00 87 /min [facility] Body temperature 2024-03-09 15:18:00 36.78 Jeanne [facility] Respiratory rate 2024-03-09 15:18:00 20 /min [facility] Body height 2024-03-09 15:18:00 165.1 cm [facility] Body weight 2024-03-09 15:18:00 109.77 kg [facility] BMI 2024-03-09 15:18:00 40.27 kg/m2 [facility] Oxygen saturation in Arterial blood by Pulse oximetry 2024-03-09 15:18:00 93 /min [facility] Systolic blood pressure 2023-12-25 20:22:00 139 mm[Hg] [facility] Diastolic blood pressure 2023-12-25 20:22:00 72 mm[Hg] [facility] Heart rate 2023-12-25 20:22:00 83 /min [facility] Body height 2023-12-25 20:22:00 165.1 cm [facility] Body weight 2023-12-25 20:22:00 109.77 kg [facility] BMI 2023-12-25 20:22:00 40.27 kg/m2 [facility] Oxygen saturation in Arterial blood by Pulse oximetry 2023-12-25 20:22:00 96 /min [facility] Systolic blood pressure 2023-12-02 13:07:00 130 mm[Hg] [facility] Diastolic blood pressure 2023-12-02 13:07:00 74 mm[Hg] [facility] Heart rate 2023-12-02 13:07:00 84 /min [facility] Body height 2023-12-02 13:07:00 165.1 cm [facility] Body weight 2023-12-02 13:07:00 105.235 kg [facility] BMI 2023-12-02 13:07:00 38.61 kg/m2 [facility] Oxygen saturation in Arterial blood by Pulse oximetry 2023-12-02 13:07:00 96 /min [facility] Systolic blood pressure 2023-11-09 18:56:00 134 mm[Hg] [facility] Diastolic blood pressure 2023-11-09 18:56:00 67 mm[Hg] [facility] Heart rate 2023-11-09 18:56:00 83 /min [facility] in Arterial blood by Pulse oximetry 2023-11-09 18:56:00 96 /min [facility] Systolic blood pressure 2023-10-14 17:54:00 127 mm[Hg] [facility] Diastolic blood pressure 2023-10-14 17:54:00 64 mm[Hg] [facility] Heart rate 2023-10-14 17:54:00 82 /min [facility] Oxygen saturation in Arterial blood by Pulse oximetry 2023-10-14 17:54:00 95 /min [facility] Systolic blood pressure 2023-07-28 20:40:00 132 mm[Hg] [facility] Diastolic blood pressure 2023-07-28 20:40:00 82 mm[Hg] [facility] Heart rate 2023-07-28 20:40:00 89 /min [facility] Body temperature 2023-07-28 20:40:00 36.83 Jeanne [facility] Respiratory rate 2023-07-28 20:40:00 24 /min [facility] Body height 2023-07-28 20:40:00 165.1 cm [facility] Body weight 2023-07-28 20:40:00 102.059 kg [facility] BMI 2023-07-28 20:40:00 37.44 kg/m2 [facility] Oxygen saturation in Arterial blood by Pulse oximetry 2023-07-28 20:40:00 95 /min [facility] Systolic blood pressure 2023-07-10 17:37:00 95 mm[Hg] [facility] Diastolic blood pressure 2023-07-10 17:37:00 63 mm[Hg] [facility] Body height 2023-07-10 17:37:00 165.1 cm Univ [facility] Body weight 2023-07-10 17:37:00 102.059 kg [facility] BMI 2023-07-10 17:37:00 37.44 kg/m2 [facility] Systolic blood pressure 2023-07-09 14:58:00 100 mm[Hg] [facility] Diastolic blood pressure 2023-07-09 14:58:00 64 mm[Hg] [facility] Heart rate 2023-07-09 14:58:00 76 /min [facility] 2023-07-09 14:58:00 165.1 cm [facility] 2023-07-09 14:58:00 102.105 kg [facility] BMI 2023-07-09 14:58:00 37.46 kg/m2 [facility] Oxygen saturation in Arterial blood by Pulse oximetry 2023-07-09 14:58:00 96 /min [facility] Systolic blood pressure 2023-07-01 21:09:00 128 mm[Hg] [facility] Diastolic blood pressure 2023-07-01 21:09:00 70 mm[Hg] [facility] Heart rate 2023-07-01 21:09:00 82 /min [facility] Body height 2023-07-01 21:09:00 165.1 cm [facility] Body weight 2023-07-01 21:09:00 98.884 kg [facility] BMI 2023-07-01 21:09:00 36.28 kg/m2 [facility] Oxygen saturation in Arterial blood by Pulse oximetry 2023-07-01 21:09:00 97 /min [facility] Systolic blood pressure 2023-05-11 18:40:00 149 mm[Hg] [facility] Diastolic blood pressure 2023-05-11 18:40:00 80 mm[Hg] [facility] Heart rate 2023-05-11 18:39:00 89 /min Unive [facility] Respiratory rate 2023-05-11 18:39:00 18 /min [facility] Body height 2023-05-11 18:39:00 165.1 cm [facility] Body weight 2023-05-11 18:39:00 98.431 kg [facility] BMI 2023-05-11 18:39:00 36.11 kg/m2 [facility] Oxygen saturation in Arterial blood by Pulse oximetry 2023-05-11 18:39:00 97 /min [facility] Systolic blood pressure 2023-04-08 14:27:00 156 mm[Hg] [facility] Diastolic blood pressure 2023-04-08 14:27:00 84 mm[Hg] [facility] Heart rate 2023-04-08 14:26:00 88 /min Unive [facility] Respiratory rate 2023-04-08 14:26:00 18 /min [facility] Body height 2023-04-08 14:26:00 165.1 cm [facility] Body weight 2023-04-08 14:26:00 98.975 kg [facility] BMI 2023-04-08 14:26:00 36.31 kg/m2 [facility] Oxygen saturation in Arterial blood by Pulse oximetry 2023-04-08 14:26:00 96 /min [facility] Systolic blood pressure 2023-03-26 17:55:00 164 mm[Hg] [facility] Diastolic blood pressure 2023-03-26 17:55:00 84 mm[Hg] [facility] Heart rate 2023-03-26 17:54:00 81 /min Unive [facility] Respiratory rate 2023-03-26 17:54:00 18 /min [facility] Body height 2023-03-26 17:54:00 165.1 cm [facility] Body weight 2023-03-26 17:54:00 99.338 kg [facility] BMI 2023-03-26 17:54:00 36.44 kg/m2 [facility] Oxygen saturation in Arterial blood by Pulse oximetry 2023-03-26 17:54:00 97 /min [facility] Systolic blood pressure 2023-02-11 14:37:00 164 mm[Hg] [facility] Diastolic blood pressure 2023-02-11 14:37:00 85 mm[Hg] [facility] Heart rate 2023-02-11 14:36:00 99 /min Unive [facility] Body height 2023-02-11 14:36:00 165.1 cm [facility] Body weight 2023-02-11 14:36:00 99.565 kg [facility] BMI 2023-02-11 14:36:00 36.53 kg/m2 [facility] O[facility] saturation in Arterial blood by Pulse oximetry 2023-02-11 14:36:00 97 /min [facility] Systolic blood pressure 2023-01-24 18:00:00 137 mm[Hg] [facility] Diastolic blood pressure 2023-01-24 18:00:00 89 mm[Hg] [facility] Heart rate 2023-01-24 18:00:00 87 /min Unive [facility] Body temperature 2023-01-24 18:00:00 36.61 Jeanne [facility] Respiratory rate 2023-01-24 18:00:00 18 /min [facility] Body height 2023-01-24 18:00:00 165.1 cm [facility] Body weight 2023-01-24 18:00:00 97.523 kg [facility] BMI 2023-01-24 18:00:00 35.78 kg/m2 [facility] Oxygen saturation in Arterial blood by Pulse oximetry 2023-01-24 18:00:00 95 /min [facility] Systolic blood pressure 2022-12-22 15:24:00 158 mm[Hg] [facility] Diastolic blood pressure 2022-12-22 15:24:00 85 mm[Hg] [facility] Heart rate 2022-12-22 15:23:00 74 /min [facility] Body temperature 2022-12-22 15:23:00 36.61 Jeanne [facility] Respiratory rate 2022-12-22 15:23:00 18 /min [facility] Body height 2022-12-22 15:23:00 167.6 cm [facility] Body weight 2022-12-22 15:23:00 100.154 kg [facility] BMI 2022-12-22 15:23:00 35.64 kg/m2 [facility] Oxygen saturation in Arterial blood by Pulse oximetry 2022-12-22 15:23:00 95 /min [facility] Systolic blood pressure 2022-11-27 14:48:00 118 mm[Hg] [facility] Diastolic blood pressure 2022-11-27 14:48:00 76 mm[Hg] [facility] Heart rate 2022-11-27 14:48:00 94 /min Unive [facility] Body temperature 2022-11-27 14:48:00 37.11 Jeanne [facility] Body height 2022-11-27 14:48:00 165.1 cm [facility] Body weight 2022-11-27 14:48:00 100.245 kg [facility] BMI 2022-11-27 14:48:00 36.78 kg/m2 [facility] Oxygen saturation in Arterial blood by Pulse oximetry 2022-11-27 14:48:00 94 /min [facility] Systolic blood pressure 2022-11-12 14:18:00 100 mm[Hg] [facility] Diastolic blood pressure 2022-11-12 14:18:00 69 mm[Hg] [facility] Heart rate 2022-11-12 14:18:00 108 /min Unive [facility] Body height 2022-11-12 14:18:00 165.1 cm [facility] Body weight 2022-11-12 14:18:00 99.338 kg [facility] BMI 2022-11-12 14:18:00 36.44 kg/m2 [facility] Oxygen saturation in Arterial blood by Pulse oximetry 2022-11-12 14:18:00 96 /min [facility] Systolic blood pressure 2022-10-30 16:15:00 111 mm[Hg] [facility] Diastolic blood pressure 2022-10-30 16:15:00 75 mm[Hg] [facility] Body temperature 2022-10-30 16:15:00 36.72 Jeanne [facility] Respiratory rate 2022-10-30 16:15:00 16 /min [facility] Body height 2022-10-30 16:15:00 165.1 cm [facility] Body weight 2022-10-30 16:15:00 97.977 kg [facility] BMI 2022-10-30 16:15:00 35.94 kg/m2 [facility] Oxygen saturation in Arterial blood by Pulse oximetry 2022-10-30 16:15:00 97 /min [facility] Systolic blood pressure 2022-09-10 14:46:00 122 mm[Hg] [facility] Diastolic blood pressure 2022-09-10 14:46:00 70 mm[Hg] [facility] Heart rate 2022-09-10 14:46:00 107 /min [facility] Body height 2022-09-10 14:46:00 165.1 cm [facility] Body weight 2022-09-10 14:46:00 106.142 kg [facility] BMI 2022-09-10 14:46:00 38.94 kg/m2 [facility] Oxygen saturation in Arterial blood by Pulse oximetry 2022-09-10 14:46:00 94 /min [facility] Systolic blood pressure 2022-08-07 17:58:00 114 mm[Hg] [facility] Diastolic blood pressure 2022-08-07 17:58:00 59 mm[Hg] [facility] Heart rate 2022-08-07 17:58:00 92 /min [facility] Body height 2022-08-07 17:58:00 165.1 cm [facility] Body weight 2022-08-07 17:58:00 115.214 kg [facility] BMI 2022-08-07 17:58:00 42.27 kg/m2 [facility] Oxygen saturation in Arterial blood by Pulse oximetry 2022-08-07 17:58:00 91 /min [facility] Systolic blood pressure 2022-07-19 22:01:00 145 mm[Hg] [facility] Diastolic blood pressure 2022-07-19 22:01:00 73 mm[Hg] [facility] Heart rate 2022-07-19 22:01:00 91 /min Unive [facility] Respiratory rate 2022-07-19 22:01:00 15 /min [facility] Oxygen saturation in Arterial blood by Pulse oximetry 2022-07-19 22:01:00 92 /min [facility] Body temperature 2022-07-19 19:11:00 36.72 Jeanne [facility] Body weight 2022-07-19 19:11:00 111.585 kg [facility] BMI 2022-07-19 19:11:00 40.94 kg/m2 [facility] Systolic blood pressure 2022-07-16 16:47:00 139 mm[Hg] [facility] Diastolic blood pressure 2022-07-16 16:47:00 78 mm[Hg] [facility] Heart rate 2022-07-16 16:45:00 83 /min Unive [facility] Respiratory rate 2022-07-16 16:45:00 22 /min [facility] Body height 2022-07-16 16:45:00 165.1 cm [facility] Body weight 2022-07-16 16:45:00 111.585 kg [facility] BMI 2022-07-16 16:45:00 40.94 kg/m2 [facility] Oxygen saturation in Arterial blood by Pulse oximetry 2022-07-16 16:45:00 93 /min [facility] Systolic blood pressure 2022-06-10 20:16:00 138 mm[Hg] [facility] Diastolic blood pressure 2022-06-10 20:16:00 72 mm[Hg] [facility] [facility] Heart rate 2022-06-10 20:16:00 84 /min [facility] Body weight 2022-06-10 20:16:00 111.993 kg [facility] BMI 2022-06-10 20:16:00 41.09 kg/m2 [facility] Oxygen saturation in Arterial blood by Pulse oximetry 2022-06-10 20:16:00 95 /min [facility] Systolic blood pressure 2022-06-04 16:31:00 138 mm[Hg] [facility] Diastolic blood pressure 2022-06-04 16:31:00 80 mm[Hg] [facility] Heart rate 2022-06-04 16:00:00 95 /min Un[facility] Body temperature 2022-06-04 16:00:00 36.94 Jeanne [facility] Body height 2022-06-04 16:00:00 165.1 cm [facility] Body weight 2022-06-04 16:00:00 111.131 kg [facility] BMI 2022-06-04 16:00:00 40.77 kg/m2 [facility] Oxygen saturation in Arterial blood by Pulse oximetry 2022-06-04 16:00:00 95 /min [facility] Systolic blood pressure 2022-05-29 18:11:00 161 mm[Hg] [facility] Diastolic blood pressure 2022-05-29 18:11:00 78 mm[Hg] [facility] Heart rate 2022-05-29 18:11:00 89 /min [facility] Respiratory rate 2022-05-29 18:11:00 20 /min [facility] Oxygen saturation in Arterial blood by Pulse oximetry 2022-05-29 18:11:00 98 /min [facility] Body temperature 2022-05-29 15:16:00 37.06 Jeanne [facility] Body height 2022-05-29 15:16:00 165.1 cm [facility] Body weight 2022-05-29 15:16:00 113.399 kg [facility] BMI 2022-05-29 15:16:00 41.60 kg/m2 [facility] Systolic blood pressure 2022-05-23 21:06:00 156 mm[Hg] [facility] Diastolic blood pressure 2022-05-23 21:06:00 78 mm[Hg] [facility] Heart rate 2022-05-23 21:06:00 87 /min [facility] Body weight 2022-05-23 21:06:00 113.036 kg [facility] BMI 2022-05-23 21:06:00 41.47 kg/m2 [facility] Oxygen saturation in Arterial blood by Pulse oximetry 2022-05-23 21:06:00 97 /min [facility] Systolic blood pressure 2022-05-08 17:02:00 127 mm[Hg] [facility] Diastolic blood pressure 2022-05-08 17:02:00 77 mm[Hg] [facility] Heart rate 2022-05-08 16:56:00 87 /min [facility] Body weight 2022-05-08 16:56:00 111.131 kg [facility] BMI 2022-05-08 16:56:00 40.77 kg/m2 [facility] Oxygen saturation in Arterial blood by Pulse oximetry 2022-05-08 16:56:00 96 /min [facility] Procedures Procedure Date / Time Performed Performing Clinician Source THYROID STIMULATING HORMONE 2023-10-14 18:15:00 Jefferson Witt [facility] COMP. METABOLIC PANEL (47417) 2023-10-14 18:15:00 Eduar [facility] LIPID PANEL ([id number])(TOTAL CHOLESTEROL, TRIGLYCERIDES, HDL) 2023-10-14 18:15:00 Eduar [facility] GLYCOSYLATED HEMOGLOBIN (A1C) 2023-10-14 18:15:00 Jefferson Witt [facility] EXTERNAL PROVIDER RECORDS 2023-10-06 06:01:00 Do ctor Unassigned, [place] [facility] HOME HEALTH - OTHER 2023-07-13 06:01:00 Doctor U carol, [place] [facility] POCT HEMOGLOBIN A1C TEST 2023-07-10 17:48:00 Giovany Antoine [facility] FLU VACC ([id number]), 6 MO-64 YRS, .5ML, IM, QUAD (FLUCELVAX) 2023-07-01 21:29:58 Jefferson Witt [facility] PNEUMOCOCCAL 20 CONJUGATE (PREVNAR 20) VACCINE 2023-07-01 21:29:58 Jefferson Witt [facility] EXTERNAL PROVIDER RECORDS 2023-06-17 06:01:00 Do ctor Unassigned, [place] [facility] HEALTH - OTHER 2023-04-20 05:01:00 Doctor Nasreen medina, [place] [facility] EXTERNAL PROVIDER RECORDS 2023-03-10 05:01:00 Do ctor Unassigned, [place] [facility] INSURANCE CORRESPONDENCE 2023-02-23 05:01:00 Doc annette Unassigned, [place] [facility] DOWNTIME AMBULATORY DOCUMENTS 2023-01-24 05:01:00 Doctor Unassigned, [place] [facility] ASSIGNMENT OF BENEFITS 2022-12-22 15:12:00 Docpat r Unassigned, [place] [facility] DME/SUPPLY JUSTIFICATION 2022-12-08 05:01:00 Doc annette Unassigned, [place] [facility] PATIENT QUESTIONNAIRE 2022-11-25 05:01:00 Doctor Unassigned, [place] [facility] DME/SUPPLY JUSTIFICATION 2022-11-13 05:01:00 Doc annette Unassigned, [place] [facility] POCT MOLECULAR FLU 2022-10-30 16:23:00 Rosette Contreras [facility] POCT MOLECULAR STREP 2022-10-30 16:22:00 Ade Contreras [facility] PATIENT FINANCIAL POLICY 2022-10-30 16:10:54 Doctor Unassigned, [place] [facility] DME/SUPPLY JUSTIFICATION 2022-10-22 05:01:00 Doc annette Unassigned, [place] [facility] HEALTH - OTHER 2022-10-13 05:01:00 Doctor Nasreen medina, [place] [facility] EXTERNAL PROVIDER RECORDS 2022-09-30 06:01:00 Do ctor Unassigned, [place] [facility] DME/SUPPLY JUSTIFICATION 2022-09-25 06:01:00 Doc tor Unassigned, [place] [facility] EXTERNAL PROVIDER RECORDS 2022-09-19 06:01:00 Do ctor Unassigned, [place] [facility] EXTERNAL PROVIDER RECORDS 2022-09-04 06:01:00 Do ctor Unassigned, [place] [facility] HEALTH - OTHER 2022-08-20 06:01:00 Doctor Nasreen medina, [place] [facility] EXTERNAL PROVIDER RECORDS 2022-08-11 06:01:00 Do ctor Unassigned, [place] [facility] - OTHER 2022-08-03 06:01:00 Doctor Nasreen medina, [place] [facility] COMP. METABOLIC PANEL ([id number]) 2022-07-19 19:57:00 Jesus Spain [facility] CBC WITH DIFF 2022-07-19 19:57:00 Jesus Spain [facility] LACTIC ACID WHOLE BLOOD 2022-07-19 19:56:00 Do katerin Spain [facility] XR HEEL 2+ VW LEFT 2022-07-19 19:48:20 Grabiel [facility] CONSENT/REFUSAL FOR DIAGNOSIS AND TREATMENT 2022-07-19 19:00:48 Doctor Unassigned, [place] [facility] SLEEP STUDY DATA REPORT 2022-06-19 06:01:00 Doct or Unassigned, [place] [facility] LIPASE 2022-05-29 16:08:00 Daylin Mojica [facility] TROPONIN I 2022-05-29 16:08:00 Daylin Mojica [facility] COMP. METABOLIC PANEL ([id number]) 2022-05-29 16:08:00 Daylin Mojica [facility] CBC WITH DIFF 2022-05-29 16:08:00 Daylin Mojica [facility] URINALYSIS 2022-05-29 16:02:00 Daylin Mojica [facility] CONSENT/REFUSAL FOR DIAGNOSIS AND TREATMENT 2022-05-29 15:11:18 Doctor Unassigned, [place] [facility] POCT HEMOGLOBIN A1C TEST 2022-05-23 21:18:00 Giovany Antoine [facility] PHYSICIAN ORDERS 2022-05-08 05:01:00 Doctor Unas signed, [place] [facility] Encounters Start Date/Time End Date/Time Encounter Type Admission Type Attending [facility] Care Facility Care Department Encounter ID Source 2021-06-01 23:56:14 Emergency [facility] [id number] [facility] 2021-06-01 12:13:32 Outpatient BISI CARDOSO [facility] [id number] [facility] 2024-05-23 14:00:00 2024-05-23 14:00:00 Outpatient Hany DAVIDTAVONCLAIRE DANIEL [facility] [id number] [facility] 2024-05-13 14:30:00 2024-05-13 14:30:00 Outpatient GIOVANY GOTTI [facility] [id number] [facility] 2024-04-13 00:00:00 2024-04-13 10:35:21 Jefferson Katz [facility] 1..840.114 350.1.13.10 4.2.7.2.686 [id number] [facility] 2024-03-09 10:00:00 2024-03-09 10:20:00 Urgent Care CaceresBisi, [facility] 1..840.114 350.1.13.10 4.2.7.2.686 [id number] [facility] 2024-03-09 10:00:00 2024-03-09 10:00:00 Outpatient BISI COONEY [facility] [id number] [facility] 2024-02-13 00:00:00 2024-02-15 14:44:54 Giovany Morton [facility] 1..840.114 350.1.13.10 4.2.7.2.686 [id number] [facility] 2024-02-13 00:00:00 2024-02-15 11:03:34 Jefferson Katz [facility] 1..840.114 350.1.13.10 4.2.7.2.686 [id number] 044 [id number] [facility] 2024-02-12 00:00:00 2024-02-12 09:36:49 [facility] 1.2.840.114 350.1.13.10 4.2.7.2.686 [id number] 044 [id number] [facility] 2024-01-26 00:00:00 2024-01-27 06:12:18 Refill Eduar Critical access hospital [facility] 1.2.840.114 350.1.13.10 4.2.7.2.686 [id number] 044 [id number] [facility] 2024-01-14 00:00:00 2024-01-15 08:07:43 Telephone Jefferson Witt [facility] 1..840.114 350.1.13.10 4.2.7.2.686 [id number] 044 [id number] [facility] 2024-01-14 12:45:00 2024-01-14 12:45:00 Outpatient JEFFERSON PEREZ [facility] [id number] [facility] 2024-01-08 11:30:00 2024-01-08 11:30:00 Outpatient GIOVANY GOTTI [facility] [id number] [facility] 2023-12-29 00:00:00 2024-01-07 09:38:12 Telephone Giovany Antoine [facility] 1.2.840.114 350.1.13.10 4.2.7.2.686 [id number] [facility] 2024-01-01 14:30:00 2024-01-01 14:30:00 Outpatient GIOVANY GOTTI [facility] [id number] [facility] 2023-12-29 00:00:00 2023-12-30 06:19:23 Refill Jefferson Witt [facility] 1.2.840.114 350.1.13.10 4.2.7.2.686 [id number] 044 [id number] [facility] 2023-12-25 15:30:00 2023-12-25 16:19:57 Outpatient R ELINA GIOVANY [facility] [id number] [facility] 2023-12-25 15:30:00 2023-12-25 16:19:57 Office Visit Giovany Antoine [facility] 1.2.840.114 350.1.13.10 4.2.7.2.686 [id number] [facility] 2023-12-23 09:30:00 2023-12-23 09:30:00 Outpatient R DANIEL CASTELLON [facility] [id number] [facility] 2023-12-22 00:00:00 2023-12-23 07:41:04 Telephone Jefferson Witt [facility] 1.2.840.114 350.1.13.10 4.2.7.2.686 [id number] [id number] [facility] 2023-12-21 00:00:00 2023-12-22 08:45:45 Telephone Giovany Antoine [facility] 1.2.840.114 350.1.13.10 4.2.7.2.686 [id number] [facility] 2023-12-21 09:45:00 2023-12-21 09:45:00 Outpatient R WITT JEFFERSON [facility] [id number] [facility] 2023-12-17 09:00:00 2023-12-17 09:00:00 Outpatient R OBI-NARA , MONTSE OBI-NARA , MONTSE [facility] [id number] [facility] 2023-12-15 00:00:00 2023-12-15 16:18:11 [facility] OFF[facility] BUILD[facility] 1.2.840.114 350.1.13.10 4.2.7.2.686 [id number] 044 [id number] [facility] 2023-12-15 00:00:00 2023-12-15 13:31:42 Telephone Jefferson Witt [facility] 1.2.840.114 350.1.13.10 4.2.7.2.686 [id number] [id number] [facility] 2023-12-15 00:00:00 2023-12-15 10:15:58 [facility] 1.2.840.114 350.1.13.10 4.2.7.2.686 [id number] [id number] [facility] 2023-12-11 00:00:00 2023-12-14 17:17:47 Telephone Giovany Antoine [facility] OFF[facility] BU[facility] 1.2.840.114 350.1.13.10 4.2.7.2.686 [id number] [facility] 2023-12-09 00:00:00 2023-12-11 15:32:48 Telephone [facility] 1.2.840.114 350.1.13.10 4.2.7.2.686 [id number] 044 [id number] [facility] 2023-12-08 00:00:00 2023-12-08 13:49:24 Refill Giovany Antoine [facility] 1.2840.114 350.1.13.10 4.2.7.2.686 [id number] [facility] 2023-12-07 00:00:00 2023-12-08 12:44:04 Telephone Jefferson Witt [facility] 1.2840.114 350.1.13.10 4.2.7.2.686 [id number] [id number] [facility] 2023-12-02 08:30:00 2023-12-02 08:45:00 Office Visit Eduar Jefferson [facility] 1.2840.114 350.1.13.10 4.2.7.2.686 [id number] [id number] [facility] 2023-12-02 08:30:00 2023-12-02 08:30:00 Outpatient R JEFFERSON WITT [facility] [id number] [facility] 2023-12-01 00:00:00 2023-12-01 00:00:00 Telephone [facility] MED[facility] OFF[facility] BU[facility] 1.840.114 350.1.13.10 4.2.7.2.686 [id number] [facility] 2023-12-01 00:00:00 2023-12-01 00:00:00 Refill [facility] MED[facility] OFF[facility] BUILD[facility] 1.2840.114 350.1.13.10 4.2.7.2.686 [id number] [facility] 2023-11-29 00:00:00 2023-11-29 00:00:00 Refill [facility] MED[facility] OFF[facility] BUILD[facility] 1.2840.114 350.1.13.10 4.2.7.2.686 [id number] [id number] [facility] 2023-11-28 00:00:00 2023-11-28 00:00:00 Nurse Triage Priti Robles [facility] 1.2.840.114 350.1.13.10 4.2.7.2.686 [id number] [facility] 2023-11-23 00:00:00 2023-11-23 00:00:00 Telephone Eduar [facility] MED[facility] OFFICE BUILD[facility] 1.2.840.114 350.1.13.10 4.2.7.2.686 [id number] [facility] 2023-11-17 00:00:00 2023-11-17 00:00:00 [facility] 1.2.840.114 350.1.13.10 4.2.7.2.686 [id number] 044 [id number] [facility] 2023-11-12 00:00:00 2023-11-12 00:00:00 Telephone Eduar Jefferson [facility] MED[facility] OFF[facility] BUILD[facility] 1.2.840.114 350.1.13.10 4.2.7.2.686 [id number] 044 [id number] [facility] 2023-11-11 00:00:00 2023-11-11 00:00:00 Telephone Eduar [facility] 1.2840.114 350.1.13.10 4.2.7.2.686 [id number] [id number] [facility] 2023-11-09 14:15:00 2023-11-09 14:18:10 Outpatient R JEFFERSON WITT [facility] [id number] [facility] 2023-11-09 14:15:00 2023-11-09 14:18:10 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 Visit 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, Fritz - Erik Eduar [facility] BU[facility] 1.2.840.114 350.1.13.10 4.2.7.2.686 [id number] [facility] 2023-11-09 14:00:00 2023-11-09 14:15:00 Office Visit Jefferson Witt [facility] OFF[facility] BUILD[facility] 1.2.840.114 350.1.13.10 4.2.7.2.686 [id number] 044 [id number] [facility] 2023-11-04 00:00:00 2023-11-04 00:00:00 Telephone Jefferson Witt [facility] OFF[facility] BU[facility] 1.2.840.114 350.1.13.10 4.2.7.2.686 [id number] [id number] [facility] 2023-11-03 00:00:00 2023-11-03 00:00:00 Telephone [facility] 1.2.840.114 350.1.13.10 4.2.7.2.686 [id number] [id number] [facility] 2023-11-02 00:00:00 2023-11-02 00:00:00 [facility] BU[facility] 1.2.840.114 350.1.13.10 4.2.7.2.686 [id number] [id number] [facility] 2023-10-15 00:00:00 2023-10-15 00:00:00 Telephone [facility] MED[facility] OFF[facility] BUILD[facility] 1.2.840.114 350.1.13.10 4.2.7.2.686 [id number] [id number] [facility] 2023-10-15 00:00:00 2023-10-15 00:00:00 Refill [facility] OFF[facility] BUILD[facility] 1.2840.114 350.1.13.10 4.2.7.2.686 [id number] [facility] 2023-10-14 13:15:00 2023-10-14 13:36:52 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 Visit Lab, Fritz Valencia Eduar [facility] MED[facility] OFFICE BUILD[facility] 1.284.114 350.1.13.10 4.2.7.2.686 [id number] [facility] 2023-10-14 12:45:00 2023-10-14 13:03:06 Outpatient R EDUAR [facility] [id number] [facility] 2023-10-14 12:45:00 2023-10-14 13:03:06 Office Visit Eduar [facility] MEDICAL OFFICE BUILD[facility] 1.284.114 350.1.13.10 4.2.7.2.686 [id number] 044 [id number] [facility] 2023-10-09 00:00:00 2023-10-09 00:00:00 Refill [facility] 1.284.114 350.1.13.10 4.2.7.2.686 [id number] 044 [id number] [facility] 2023-10-09 00:00:00 2023-10-09 00:00:00 Refill [facility] OFF[facility] 1.2840.114 350.1.13.10 4.2.7.2.686 [id number] [id number] [facility] 2023-10-09 00:00:00 2023-10-09 00:00:00 Refill Eduar Critical [facility] hospital [facility] MEDICAL OFFICE BUILDING 1.2840.114 350.1.13.10 4.2.7.2.686 [id number] [id number] [facility] 2023-10-06 00:00:00 2023-10-06 00:00:00 Orders Only Doctor Unassigned, [place] [facility] 1.2840.114 350.1.13.10 4.2.7.2.686 [id number] [facility] 2023-10-05 13:00:00 2023-10-05 13:00:00 Outpatient JEFFERSON PEREZ [facility] [id number] [facility] 2023-10-05 09:30:00 2023-10-05 09:30:00 Outpatient JEFFERSON PEREZ [facility] [id number] [facility] 2023-10-01 00:00:00 2023-10-01 00:00:00 Refill Eduar Critical access hospital [facility] MEDICAL OFFICE BUILDING 1.840.114 350.1.13.10 4.2.7.2.686 [id number] [facility] 2023-09-24 00:00:00 2023-09-24 00:00:00 Telephone Eduar Critical access hospital [facility] MEDICAL OFFICE BUILDING 1.840.114 350.1.13.10 4.2.7.2.686 [id number] 044 [id number] [facility] 2023-09-16 00:00:00 2023-09-16 00:00:00 Refill Witt Critical [facility] hospital [facility] MED[facility] OFFICE BUILDING 1.2840.114 350.1.13.10 4.2.7.2.686 [id number] 044 [id number] [facility] 2023-09-15 00:00:00 2023-09-15 00:00:00 Refill [facility] MEDICAL OFFICE BUILD[facility] 1.2840.114 350.1.13.10 4.2.7.2.686 [id number] 044 [id number] [facility] 2023-09-11 00:00:00 2023-09-11 00:00:00 Refill [facility] MED[facility] OFF[facility] BUILD[facility] 1.2.840.114 350.1.13.10 4.2.7.2.686 [id number] 044 [id number] [facility] 2023-09-11 00:00:00 2023-09-11 00:00:00 Refprabhjot Witt [facility] OFF[facility] BUILD[facility] 1.2840.114 350.1.13.10 4.2.7.2.686 [id number] [id number] [facility] 2023-09-10 00:00:00 2023-09-10 00:00:00 Telephone [facility] OFF[facility] BUILD[facility] 1.2840.114 350.1.13.10 4.2.7.2.686 [id number] 044 [id number] [facility] 2023-09-02 00:00:00 2023-09-02 00:00:00 Refprabhjot Witt [facility] OFF[facility]ILD[facility] 1.2840.114 350.1.13.10 4.2.7.2.686 [id number] 044 [id number] [facility] 2023-08-18 00:00:00 2023-08-18 00:00:00 Refill [facility] 1.2840.114 350.1.13.10 4.2.7.2.686 [id number] [id number] [facility] 2023-08-14 08:45:00 2023-08-14 09:33:25 Outpatient R VESELEMIL NORA [facility] [id number] [facility] 2023-08-14 08:45:00 2023-08-14 09:00:00 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 Visit Lab, Fritz FarraremilNora [facility] [place] 1.2840.114 350.1.13.10 4.2.7.2.686 [id number] [facility] 2023-08-10 09:30:00 2023-08-10 09:30:00 Outpatient R WITT, [facility] [id number] [facility] 2023-08-07 00:00:00 2023-08-07 00:00:00 Refprabhjot Witt [facility] MEDICAL OFFICE BUILDING 1.84114 350.1.13.10 4.2.7.2.686 [id number] [facility] 2023-08-07 00:00:00 2023-08-07 00:00:00 Refill Giovany Antoine [facility] 1..114 350.1.13.10 4.2.7.2.686 [id number] [facility] 2023-08-05 00:00:00 2023-08-05 00:00:00 Refill Eduar [facility] 1.84.114 350.1.13.10 4.2.7.2.686 [id number] [facility] 2023-08-04 00:00:00 2023-08-04 00:00:00 Telephone Eduar Jefferson [facility] [place]?[facility] 1.840.114 350.1.13.10 4.2.7.2.686 [id number] [facility] 2023-07-29 00:00:00 2023-07-29 00:00:00 Refill AntoineGiovany [facility] [place] 1.2.840.114 350.1.13.10 4.2.7.2.686 [id number] [facility] 2023-07-28 14:40:00 2023-07-28 15:00:00 Urgent Care Ana Riddle Unknown, Attending [facility] 1.840.114 350.1.13.10 4.2.7.2.686 [id number] [facility] 2023-07-28 14:40:00 2023-07-28 14:40:00 Outpatient R ANA RIDDLE [facility] [id number] [facility] 2023-07-21 00:00:00 2023-07-21 00:00:00 [facility] 1.840.114 350.1.13.10 4.2.7.2.686 [id number] [facility] 2023-07-17 00:00:00 2023-07-17 00:00:00 Telephone AntoineGiovany [facility] [place] 1.840.114 350.1.13.10 4.2.7.2.686 [id number] [facility] 2023-07-14 00:00:00 2023-07-14 00:00:00 [facility] 1..840.114 350.1.13.10 4.2.7.2.686 [id number] [id number] [facility] 2023-07-13 00:00:00 2023-07-13 00:00:00 Orders Only Doctor Unassigned, [place] [facility] 1.2840.114 350.1.13.10 4.2.7.2.686 [id number] 009 [id number] [facility] 2023-07-10 11:30:00 2023-07-10 12:21:58 Outpatient R GIOVANY ANTOINE [facility] [id number] [facility] 2023-07-10 11:30:00 2023-07-10 12:21:58 Office Visit Giovany Antoine [facility] MA[facility]ICIO?[facility] MEDICAL OFFICE BUILDING 1.84.114 350.1.13.10 4.2.7.2.686 [id number] [facility] 2023-07-09 09:00:00 2023-07-09 09:14:16 Outpatient R [facility] [id number] [facility] 2023-07-09 09:00:00 2023-07-09 09:14:16 [facility] MEDICAL OFFICE BUILDING 1.84.114 350.1.13.10 4.2.7.2.686 [id number] 044 [id number] [facility] 2023-07-07 00:00:00 2023-07-07 00:00:00 [facility]abhjot [facility] MEDICAL OFFICE BUILDING 1.284.114 350.1.13.10 4.2.7.2.686 [id number] 044 [id number] [facility] 2023-07-07 00:00:00 2023-07-07 00:00:00 Viktoriya Witt Critical access hospital [facility]ICIO[facility] MED[facility] OFF[facility] BUILD[facility] 1.284.114 350.1.13.10 4.2.7.2.686 [id number] 044 [id number] [facility] 2023-07-06 00:00:00 2023-07-06 00:00:00 Refill [facility] MEDICAL OFFICE BUILDING 1.84114 350.1.13.10 4.2.7.2.686 [id number] 044 [id number] [facility] 2023-07-01 15:15:00 2023-07-01 15:39:06 Outpatient R JEFFERSON WITT [facility] [id number] [facility] 2023-07-01 15:15:00 2023-07-01 15:39:06 Office Visit Eduar Critical access hospital MAURICIO?[facility] MEDICAL OFFICE BUILDING 1.84114 350.1.13.10 4.2.7.2.686 [id number] 044 [id number] [facility] 2023-06-27 00:00:00 2023-06-27 00:00:00 [facility] MED[facility] OFFICE BUILDING 1.84.114 350.1.13.10 4.2.7.2.686 [id number] 044 [id number] [facility] 2023-06-23 00:00:00 2023-06-23 00:00:00 Refill Eduar Critical access hospital MAURICIO?[facility] MEDICAL OFFICE BUILDING 1.114 350.1.13.10 4.2.7.2.686 [id number] 044 [id number] [facility] 2023-06-17 00:00:00 2023-06-17 00:00:00 Orders Only Doctor Unassigned, [place] [facility] 1.114 350.1.13.10 4.2.7.2.686 [id number] [id number] [facility] 2023-06-15 00:00:00 2023-06-15 00:00:00 Telephone [facility] Center[facility]LE[facility] MEDICAL OFFICE BUILDING 1.2.840.114 350.1.13.10 4.2.7.2.686 [id number] 044 [id number] [facility] 2023-06-08 00:00:00 2023-06-08 00:00:00 Refill Bassam [facility] CenterTAME[facility] GLEASON?[facility] MEDICAL OFFICE BUILDING 1.2840.114 350.1.13.10 4.2.7.2.686 [id number] 044 [id number] [facility] 2023-06-03 00:00:00 2023-06-03 00:00:00 Telephone Jefferson Witt [facility] MEDICAL OFFICE BUILDING 1.2840.114 350.1.13.10 4.2.7.2.686 [id number] 044 [id number] [facility] 2023-06-03 00:00:00 2023-06-03 00:00:00 Telephone Jefferson Witt [facility]ON?[facility] MEDICAL OFFICE BUILDING 1.2840.114 350.1.13.10 4.2.7.2.686 [id number] 044 [id number] [facility] 2023-05-19 00:00:00 2023-05-19 00:00:00 Telephone Jefferson Witt [facility]LE[facility]ON?[facility] MEDICAL OFFICE BUILDING 1.2840.114 350.1.13.10 4.2.7.2.686 [id number] 044 [id number] [facility] 2023-05-19 00:00:00 2023-05-19 00:00:00 Patient Secure Msg Doctor Unassigned, [place] [facility] MAURICIO?[facility] MEDICAL OFFICE BUILDING 1.2840.114 350.1.13.10 4.2.7.2.686 [id number] 044 [id number] [facility] 2023-05-14 09:30:00 2023-05-14 09:30:00 Outpatient R JEFFERSON WITT [facility] [id number] [facility] 2023-05-13 00:00:00 2023-05-13 00:00:00 Refill Jefferson Witt [facility] MA[facility]ICIO?[facility] OFFICE BUILDING 1..840.114 350.1.13.10 4.2.7.2.686 [id number] 044 [id number] [facility] 2023-05-13 00:00:00 2023-05-13 00:00:00 Refill Eduar Jefferson [facility] OFFICE BUILDING 1.84.114 350.1.13.10 4.2.7.2.686 [id number] 044 [id number] [facility] 2023-05-13 00:00:00 2023-05-13 00:00:00 Refill Giovany Antoine [facility] MEDICAL OFFICE BUILDING 1.84.114 350.1.13.10 4.2.7.2.686 [id number] [facility] 2023-05-12 10:45:00 2023-05-12 11:00:00 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 Visit Mary, Brenda Lopez Eduar Jefferson [facility] BUILDING 1..84.114 350.1.13.10 4.2.7.2.686 [id number] [facility] 2023-05-12 10:45:00 2023-05-12 10:45:00 Outpatient R JEFFERSON WITT [facility] [id number] [facility] 2023-05-11 14:15:00 2023-05-11 14:30:00 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 Visit [facility] MEDICAL OFFICE BUILDING 1..840.114 350.1.13.10 4.2.7.2.686 [id number] [facility] 2023-05-11 14:15:00 2023-05-11 14:15:00 Outpatient JEFFERSON PEREZ [facility] [id number] [facility] 2023-05-11 13:30:00 2023-05-11 13:45:00 Office Visit Bass[facility] CenterTAMELA GLEASON?[facility] OFF[facility] BUILDING 1.2.840.114 350.1.13.10 4.2.7.2.686 [id number] 044 [id number] [facility] 2023-05-08 00:00:00 2023-05-08 00:00:00 Telephone Jefferson Witt [facility] MAURICIO?[facility] MEDICAL OFFICE BUILDING 1.2.840.114 350.1.13.10 4.2.7.2.686 [id number] 044 [id number] [facility] 2023-05-07 00:00:00 2023-05-07 00:00:00 Telephone Jefferson Witt [facility] MAURICIO?[facility] MEDICAL OFFICE BUILDING 1.2840.114 350.1.13.10 4.2.7.2.686 [id number] 044 [id number] [facility] 2023-05-06 10:00:00 2023-05-06 10:00:00 Outpatient JEFFERSON PEREZ [facility] [id number] [facility] 2023-04-30 00:00:00 2023-04-30 00:00:00 Refill Eduar Critical access hospital MAURICIO?[facility] MEDICAL OFFICE BUILDING 1.2.840.114 350.1.13.10 4.2.7.2.686 [id number] 044 [id number] [facility] 2023-04-30 00:00:00 2023-04-30 00:00:00 Refill Giovany Antoine [facility] MA[facility]ICIO?[facility] MEDICAL OFFICE BUILDING 1.2.840.114 350.1.13.10 4.2.7.2.686 [id number] [facility] 2023-04-29 00:00:00 2023-04-29 00:00:00 Telephone Jefferson Witt [facility]ON?[facility] 1.2.840.114 350.1.13.10 4.2.7.2.686 [id number] 044 [id number] [facility] 2023-04-27 00:00:00 2023-04-27 00:00:00 Telephone Jefferson Witt [facility] MEDICAL OFFICE BUILDING 1.2840.114 350.1.13.10 4.2.7.2.686 [id number] 044 [id number] [facility] 2023-04-20 00:00:00 2023-04-20 00:00:00 Orders Only Doctor Unassigned, [place] [facility] 1.2840.114 350.1.13.10 4.2.7.2.686 [id number] [facility] 2023-04-15 00:00:00 2023-04-15 00:00:00 Telephone Eduar Critical access hospital MAURICIO?[facility] MEDICAL OFFICE BUILDING 1.2840.114 350.1.13.10 4.2.7.2.686 [id number] 044 [id number] [facility] 2023-04-13 00:00:00 2023-04-13 00:00:00 Refill Eduar Critical access hospital MAURICIO?[facility] MEDICAL OFFICE BUILDING 1.2840.114 350.1.13.10 4.2.7.2.686 [id number] 044 [id number] [facility] 2023-04-13 00:00:00 2023-04-13 00:00:00 Telephone Jefferson Witt [facility] GLEASON?[facility] MEDICAL OFFICE BUILDING 1.2.840.114 350.1.13.10 4.2.7.2.686 [id number] 044 [id number] [facility] 2023-04-08 09:30:00 2023-04-08 09:46:20 Outpatient JEFFERSON PEREZ [facility] [id number] [facility] 2023-04-08 09:30:00 2023-04-08 09:46:20 Office Visit Jefferson Witt [facility] GLEASON?[facility] 1.84.114 350.1.13.10 4.2.7.2.686 [id number] 044 [id number] [facility] 2023-04-07 00:00:00 2023-04-07 00:00:00 Telephone Jefferson Witt [facility] MAURICIO?[facility] MEDICAL OFFICE BUILDING 1.84.114 350.1.13.10 4.2.7.2.686 [id number] 044 [id number] [facility] 2023-04-02 10:15:00 2023-04-02 10:15:00 Outpatient R JEFFERSON WITT [facility] [id number] [facility] 2023-03-30 12:00:00 2023-03-30 12:00:00 Outpatient JEFFERSON PEREZ [facility] [id number] [facility] 2023-03-28 00:00:00 2023-03-28 00:00:00 Nurse Triage Alana Baptiste [facility] 1.84.114 350.1.13.10 4.2.7.2.686 [id number] [id number] [facility] 2023-03-28 00:00:00 2023-03-28 00:00:00 Refill Eduar Critical access hospital MAURICIO?[facility] MEDICAL OFFICE BUILDING 1.84.114 350.1.13.10 4.2.7.2.686 [id number] 044 [id number] [facility] 2023-03-27 00:00:00 2023-03-27 00:00:00 Telephone Bassam Wittony [facility] MEDICAL OFFICE BUILDING 1.84114 350.1.13.10 4.2.7.2.686 [id number] 044 [id number] [facility] 2023-03-26 13:00:00 2023-03-26 13:15:00 Office Visit Jefferson Witt [facility] 1.114 350.1.13.10 4.2.7.2.686 [id number] 044 [id number] [facility] 2023-03-26 13:00:00 2023-03-26 13:00:00 Outpatient R JEFFERSON WITT [facility] [id number] [facility] 2023-03-26 00:00:00 2023-03-26 00:00:00 Telephone Eduar Jefferson [facility] MEDICAL OFFICE BUILDING 1.114 350.1.13.10 4.2.7.2.686 [id number] 044 [id number] [facility] 2023-03-23 12:57:00 2023-03-23 12:57:00 Outpatient Suma Mariano [facility] [id number] [facility] 2023-03-20 12:30:00 2023-03-20 12:30:00 Outpatient ROSETTE ROME [facility] [id number] [facility] 2023-03-16 00:00:00 2023-03-16 00:00:00 Giovany Morton [facility] MEDICAL OFFICE BUILDING 1.114 350.1.13.10 4.2.7.2.686 [id number] [facility] 2023-03-10 00:00:00 2023-03-10 00:00:00 Orders Only Doctor Unassigned, [place] [facility] 1.114 350.1.13.10 4.2.7.2.686 [id number] [id number] [facility] 2023-02-24 00:00:00 2023-02-24 00:00:00 Telephone Giovany Antoine [facility] MEDICAL OFFICE BUILDING 1..840.114 350.1.13.10 4.2.7.2.686 [id number] [facility] 2023-02-23 00:00:00 2023-02-23 00:00:00 Orders Only Doctor Unassigned, [place] [facility] 1.840.114 350.1.13.10 4.2.7.2.686 [id number] [id number] [facility] 2023-02-20 00:00:00 2023-02-20 00:00:00 Refill Giovany Antoine [facility] MEDICAL OFFICE BUILDING 1.840.114 350.1.13.10 4.2.7.2.686 [id number] [facility] 2023-02-20 00:00:00 2023-02-20 00:00:00 Refill Eduar [facility] MED[facility] OFF[facility] BUILDING 1..840.114 350.1.13.10 4.2.7.2.686 [id number] 044 [id number] [facility] 2023-02-13 11:00:00 2023-02-13 11:00:00 Outpatient R GIOVANY ANTOINE [facility] [id number] [facility] 2023-02-12 00:00:00 2023-02-12 00:00:00 Refill Eduar [facility] MEDICAL OFFICE BUILDING 1..840.114 350.1.13.10 4.2.7.2.686 [id number] 044 [id number] [facility] 2023-02-11 09:45:00 2023-02-11 10:00:00 Office Visit Jefferson Witt [facility] 1.2.840.114 350.1.13.10 4.2.7.2.686 [id number] 044 [id number] [facility] 2023-02-11 09:45:00 2023-02-11 09:45:00 Outpatient R BASSAM WITTONY [facility] [id number] [facility] 2023-02-05 00:00:00 2023-02-05 00:00:00 Telephone Jefferson Witt [facility] 1.2.840.114 350.1.13.10 4.2.7.2.686 [id number] 044 [id number] [facility] 2023-02-04 00:00:00 2023-02-04 00:00:00 Telephone Jefferson Witt [facility] 1.2.840.114 350.1.13.10 4.2.7.2.686 [id number] 044 [id number] [facility] 2023-01-26 00:00:00 2023-01-26 00:00:00 Refill Jefferson Witt [facility] 1..840.114 350.1.13.10 4.2.7.2.686 [id number] 044 [id number] [facility] 2023-01-26 00:00:00 2023-01-26 00:00:00 Telephone Jefferson Witt [facility] 1.2.840.114 350.1.13.10 4.2.7.2.686 [id number] 044 [id number] [facility] 2023-01-24 11:00:00 2023-01-24 11:20:00 Urgent Care Richard Vidal Unknown, Attending [facility] 1.2.840.114 350.1.13.10 4.2.7.2.686 [id number] [facility] 2023-01-24 11:00:00 2023-01-24 11:00:00 Outpatient R RICHARD VIDAL [facility] [id number] [facility] 2023-01-24 00:00:00 2023-01-24 00:00:00 Orders Only Doctor Unassigned, [place] [facility] 1.840.114 350.1.13.10 4.2.7.2.686 [id number] [facility] 2023-01-19 00:00:00 2023-01-19 00:00:00 Telephone Giovany Antoine [facility] MED[facility] OFFICE BUILDING 1.840.114 350.1.13.10 4.2.7.2.686 [id number] [facility] 2023-01-12 10:15:00 2023-01-12 10:15:00 Outpatient R JEFFERSON WITT [facility] [id number] [facility] 2023-01-09 00:00:00 2023-01-09 00:00:00 [facility] MED[facility] OFFICE BUILDING 1.840.114 350.1.13.10 4.2.7.2.686 [id number] 044 [id number] [facility] 2023-01-09 00:00:00 2023-01-09 00:00:00 Refill Eduar Jefferson [facility] MED[facility] OFFICE BUILDING 1.840.114 350.1.13.10 4.2.7.2.686 [id number] 044 [id number] [facility] 2023-01-07 00:00:00 2023-01-07 00:00:00 Telephone Jefferson Witt [facility] MA[facility]ICIO?[facility] MEDICAL OFFICE BUILDING 1.2840.114 350.1.13.10 4.2.7.2.686 [id number] 044 [id number] [facility] 2023-01-02 00:00:00 2023-01-02 00:00:00 Refill Daniel Castellon [facility] MA[facility]ICIO?[facility] MEDICAL OFFICE BUILDING 1.2840.114 350.1.13.10 4.2.7.2.686 [id number] 044 [id number] [facility] 2023-01-01 00:00:00 2023-01-01 00:00:00 Refill Jefferson Witt [facility] MA[facility] MEDICAL OFFICE BUILDING 1.2840.114 350.1.13.10 4.2.7.2.686 [id number] 044 [id number] [facility] 2023-01-01 00:00:00 2023-01-01 00:00:00 Telephone Jefferson Witt [facility] 1.2840.114 350.1.13.10 4.2.7.2.686 [id number] 044 [id number] [facility] 2022-12-31 00:00:00 2022-12-31 00:00:00 Telephone Jefferson Witt [facility] MEDICAL OFFICE BUILDING 1.2840.114 350.1.13.10 4.2.7.2.686 [id number] 044 [id number] [facility] 2022-12-28 00:00:00 2022-12-28 00:00:00 Refill Giovany Antoine [facility] MEDICAL OFFICE BUILDING 1.2840.114 350.1.13.10 4.2.7.2.686 [id number] [facility] 2022-12-24 00:00:00 2022-12-24 00:00:00 Telephone [facility] 1.840.114 350.1.13.10 4.2.7.2.686 [id number] [facility] 2022-12-22 10:30:00 2022-12-22 10:46:35 Outpatient R DANIEL CASTELLON [facility] [id number] [facility] 2022-12-22 10:30:00 2022-12-22 10:46:35 Office Visit KennethDaniel choe [facility] MEDICAL OFFICE BUILDING 1.840.114 350.1.13.10 4.2.7.2.686 [id number] 044 [id number] [facility] 2022-12-22 00:00:00 2022-12-22 00:00:00 Orders Only Doctor Unassigned, [place] [facility] 1.840.114 350.1.13.10 4.2.7.2.686 [id number] [facility] 2022-12-17 00:00:00 2022-12-17 00:00:00 Refill Eduar Critical access hospital MA[facility]ICIO?[facility] MED[facility] OFF[facility] BUILDING 1.840.114 350.1.13.10 4.2.7.2.686 [id number] 044 [id number] [facility] 2022-12-16 00:00:00 2022-12-16 00:00:00 Refill Eduar Critical access hospital MA[facility]ICIO?[facility] MEDICAL OFFICE BUILDING 1.840.114 350.1.13.10 4.2.7.2.686 [id number] 044 [id number] [facility] 2022-12-15 00:00:00 2022-12-15 00:00:00 Refill Eduar Critical access hospital [facility]IC[facility] MEDICAL OFFICE BUILDING 1.840.114 350.1.13.10 4.2.7.2.686 [id number] 044 [id number] [facility] 2022-12-15 00:00:00 2022-12-15 00:00:00 Telephone [facility] MEDICAL OFFICE BUILDING 1.2.840.114 350.1.13.10 4.2.7.2.686 [id number] 044 [id number] [facility] 2022-12-11 00:00:00 2022-12-11 00:00:00 Telephone Jefferson Witt [facility] MEDICAL OFFICE BUILDING 1.2840.114 350.1.13.10 4.2.7.2.686 [id number] 044 [id number] [facility] 2022-12-10 00:00:00 2022-12-10 00:00:00 Telephone Jefferson Witt [facility] MED[facility] OFF[facility] BUILD[facility] 1.2840.114 350.1.13.10 4.2.7.2.686 [id number] 044 [id number] [facility] 2022-12-09 00:00:00 2022-12-09 00:00:00 Telephone Jefferson Witt [facility] MEDICAL OFFICE BUILDING 1.2.840.114 350.1.13.10 4.2.7.2.686 [id number] 044 [id number] [facility] 2022-12-08 00:00:00 2022-12-08 00:00:00 Telephone Eduar Critical access hospital [facility]ICIO[facility] MED[facility] OFF[facility] BUILDING 1.2840.114 350.1.13.10 4.2.7.2.686 [id number] 044 [id number] [facility] 2022-12-08 00:00:00 2022-12-08 00:00:00 Orders Only Doctor Unassigned, [place] [facility] 1.2840.114 350.1.13.10 4.2.7.2.686 [id number] [facility] 2022-12-06 00:00:00 2022-12-06 00:00:00 Refill Marylou Gamino [facility] MEDICAL OFFICE BUILDING 1.2840.114 350.1.13.10 4.2.7.2.686 [id number] [facility] 2022-12-06 00:00:00 2022-12-06 00:00:00 Refill Eduar [facility] 1..114 350.1.13.10 4.2.7.2.686 [id number] [facility] 2022-12-03 08:45:00 2022-12-03 08:45:00 Outpatient R EDUAR [facility] [id number] [facility] 2022-12-03 00:00:00 2022-12-03 00:00:00 Telephone Eduar Critical access hospital [facility]IC[facility] MED[facility] OFF[facility] BU[facility] 1..114 350.1.13.10 4.2.7.2.686 [id number] [facility] 2022-12-01 00:00:00 2022-12-01 00:00:00 Telephone Farshad Antoinenaren Taylor [facility] 1..114 350.1.13.10 4.2.7.2.686 [id number] [facility] 2022-11-27 10:30:00 2022-11-27 10:45:00 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 Visit Lab, Fritz [facility]arez[facility]aze [facility] MED[facility] 1.2840.114 350.1.13.10 4.2.7.2.686 [id number] [facility] 2022-11-27 10:30:00 2022-11-27 10:30:00 Outpatient JEFFERSON PEREZ [facility] [id number] [facility] 2022-11-27 10:00:00 2022-11-27 10:15:00 [facility] 1.2840.114 350.1.13.10 4.2.7.2.686 [id number] [facility] 2022-11-25 00:00:00 2022-11-25 00:00:00 Orders Only Doctor Unassigned, [place] [facility] 1.2840.114 350.1.13.10 4.2.7.2.686 [id number] [facility] 2022-11-13 00:00:00 2022-11-13 00:00:00 Orders Only Doctor Unassigned, [place] [facility] 1.20.114 350.1.13.10 4.2.7.2.686 [id number] [facility] 2022-11-12 09:30:00 2022-11-12 09:45:52 Outpatient R JEFFERSON WITT [facility] [id number] [facility] 2022-11-12 09:30:00 2022-11-12 09:45:52 Office Visit Jefferson Witt [facility] MED[facility] OFF[facility] 1.284.114 350.1.13.10 4.2.7.2.686 [id number] [facility] 2022-11-12 00:00:00 2022-11-12 00:00:00 [facility] 1.284.114 350.1.13.10 4.2.7.2.686 [id number] [id number] [facility] 2022-11-12 00:00:00 2022-11-12 00:00:00 [facility] 1.2.840.114 350.1.13.10 4.2.7.2.686 [id number] [facility] 2022-11-10 09:20:00 2022-11-10 09:20:00 Outpatient CLAUDIA OWUSU [facility] [id number] [facility] 2022-11-07 00:00:00 2022-11-07 00:00:00 Telephone Eduar Critical [facility] 1.2.840.114 350.1.13.10 4.2.7.2.686 [id number] [facility] 2022-11-06 12:30:00 2022-11-06 12:30:00 Outpatient JEFFERSON PEREZ [facility] [id number] [facility] 2022-11-04 00:00:00 2022-11-04 00:00:00 [facility] 1.2.840.114 350.1.13.10 4.2.7.2.686 [id number] [facility] 2022-11-04 00:00:00 2022-11-04 00:00:00 Patient Secure Msg Doctor Unassigned, [place] [facility] 1..840.114 350.1.13.10 4.2.7.2.686 [id number] [facility] 2022-11-03 12:30:00 2022-11-03 12:30:00 Outpatient JEFFERSON PEREZ [facility] [id number] [facility] 2022-10-30 11:30:00 2022-10-30 11:50:04 Outpatient ROSETTE ROME [facility] [id number] [facility] 2022-10-30 11:30:00 2022-10-30 11:50:04 Office Visit Rosette Contreras [facility] MAURICIO?SUSANNEUlices [facility] MEDICAL OFFICE BUILDING 1.2840.114 350.1.13.10 4.2.7.2.686 [id number] 044 [id number] [facility] 2022-10-30 00:00:00 2022-10-30 00:00:00 Orders Only Doctor Unassigned, [place] [facility] 1.840.114 350.1.13.10 4.2.7.2.686 [id number] [id number] [facility] 2022-10-30 00:00:00 2022-10-30 00:00:00 Telephone Claudia Porter [facility] NAL BUILDING 1.84.114 350.1.13.10 4.2.7.2.686 [id number] 059 [id number] [facility] 2022-10-29 08:30:00 2022-10-29 08:30:00 Outpatient R JEFFERSON WITT [facility] [id number] [facility] 2022-10-28 00:00:00 2022-10-28 00:00:00 Telephone Jefferson Witt [facility] MEDICAL OFFICE BUILDING 1.840.114 350.1.13.10 4.2.7.2.686 [id number] 044 [id number] [facility] 2022-10-24 00:00:00 2022-10-24 00:00:00 Refill Eduar Jefferson [facility]?MARISELA [facility] MEDICAL OFFICE BUILDING 1.84.114 350.1.13.10 4.2.7.2.686 [id number] 044 [id number] [facility] 2022-10-23 00:00:00 2022-10-23 00:00:00 Telephone Jefferson Witt [facility] MEDICAL OFFICE BUILDING 1.2.840.114 350.1.13.10 4.2.7.2.686 [id number] 044 [id number] [facility] 2022-10-22 00:00:00 2022-10-22 00:00:00 Orders Only Doctor Unassigned, [place] [facility] 1.2.840.114 350.1.13.10 4.2.7.2.686 [id number] [id number] [facility] 2022-10-20 00:00:00 2022-10-20 00:00:00 Telephone Eduar [facility] 1.2.840.114 350.1.13.10 4.2.7.2.686 [id number] 044 [id number] [facility] 2022-10-16 00:00:00 2022-10-16 00:00:00 Telephone Claudia Porter [facility] BUILDING 1.2840.114 350.1.13.10 4.2.7.2.686 [id number] 059 [id number] [facility] 2022-10-15 00:00:00 2022-10-15 00:00:00 Refill Eduar [facility]?MARISELA [facility] MEDICAL OFFICE BUILDING 1.2.840.114 350.1.13.10 4.2.7.2.686 [id number] 044 [id number] [facility] 2022-10-13 00:00:00 2022-10-13 00:00:00 Orders Only Doctor Unassigned, [place] [facility] 1.2.840.114 350.1.13.10 4.2.7.2.686 [id number] [id number] [facility] 2022-10-09 12:30:00 2022-10-09 12:30:00 Outpatient ROSETTE ROME [facility] [id number] [facility] 2022-10-09 08:30:00 2022-10-09 08:30:00 Outpatient R ION HOBBS [facility] [id number] [facility] 2022-10-06 00:00:00 2022-10-06 00:00:00 Refill Eduar [facility]A [facility] MED[facility] OFF[facility] BUILDING 1.2840.114 350.1.13.10 4.2.7.2.686 [id number] 044 [id number] [facility] 2022-10-03 00:00:00 2022-10-03 00:00:00 Telephone [facility] 1..114 350.1.13.10 4.2.7.2.686 [id number] 059 [id number] [facility] 2022-10-01 13:00:00 2022-10-01 13:00:00 Outpatient R CLAUDIA PORTER [facility] [id number] [facility] 2022-09-30 00:00:00 2022-09-30 00:00:00 Orders Only Doctor Unassigned, [place] [facility] 1..114 350.1.13.10 4.2.7.2.686 [id number] 009 [id number] [facility] 2022-09-25 00:00:00 2022-09-25 00:00:00 Orders Only Doctor Unassigned, [place] [facility] 1.20.114 350.1.13.10 4.2.7.2.686 [id number] 009 [id number] [facility] 2022-09-24 00:00:00 2022-09-24 00:00:00 Telephone Jefferson [facility] 1.284.114 350.1.13.10 4.2.7.2.686 [id number] 044 [id number] [facility] 2022-09-23 00:00:00 2022-09-23 00:00:[address] [facility] 1.840.114 350.1.13.10 4.2.7.2.686 [id number] 044 [id number] [facility] 2022-09-22 00:00:00 2022-09-22 00:00:00 Marylou Ambrose [facility] MED[facility] OFFICE BUILDING 1.2840.114 350.1.13.10 4.2.7.2.686 [id number] 220 [id number] [facility] 2022-09-19 10:30:00 2022-09-19 10:30:00 Outpatient R GIOVANY ANTOINE [facility] [id number] [facility] 2022-09-19 00:00:00 2022-09-19 00:00:00 Orders Only Doctor Unassigned, [place] [facility] 1.2840.114 350.1.13.10 4.2.7.2.686 [id number] 009 [id number] [facility] 2022-09-18 00:00:00 2022-09-18 00:00:00 Telephone Giovany Antoine [facility]?MARISELA [facility] MEDICAL OFFICE BUILDING 1.2.114 350.1.13.10 4.2.7.2.686 [id number] [facility] 2022-09-17 00:00:00 2022-09-17 00:00:00 Telephone Jefferson Witt [facility] MED[facility] OFFICE BUILDING 1.2.114 350.1.13.10 4.2.7.2.686 [id number] 044 [id number] [facility] 2022-09-15 00:00:00 2022-09-15 00:00:00 Telephone Giovany Antoine [facility] MAURICIO?MARISELA [facility] MEDICAL OFFICE BUILDING 1.2840.114 350.1.13.10 4.2.7.2.686 [id number] [facility] 2022-09-11 00:00:00 2022-09-11 00:00:00 Telephone Jefferson Witt [facility] MEDICAL OFFICE BUILDING 1.2840.114 350.1.13.10 4.2.7.2.686 [id number] 044 [id number] [facility] 2022-09-10 09:00:00 2022-09-10 09:30:00 Office [facility] MEDICAL OFFICE BUILDING 1..114 350.1.13.10 4.2.7.2.686 [id number] 044 [id number] [facility] 2022-09-10 09:00:00 2022-09-10 09:00:00 Outpatient [facility] [id number] [facility] 2022-09-10 00:00:00 2022-09-10 00:00:00 Refill Eduar [facility] MEDICAL OFFICE BUILDING 1..114 350.1.13.10 4.2.7.2.686 [id number] 044 [id number] [facility] 2022-09-04 00:00:00 2022-09-04 00:00:00 Orders Only Doctor Unassigned, [place] [facility] 1.0.114 350.1.13.10 4.2.7.2.686 [id number] [facility] 2022-09-02 00:00:00 2022-09-02 00:00:00 Refill Eduar [facility] MEDICAL OFFICE BUILDING 1.2840.114 350.1.13.10 4.2.7.2.686 [id number] 044 [id number] [facility] 2022-09-02 00:00:00 2022-09-02 00:00:00 Telephone Jefferson Witt [facility]?MARISELA [facility] MEDICAL OFFICE BUILDING 1.2.840.114 350.1.13.10 4.2.7.2.686 [id number] 044 [id number] [facility] 2022-09-01 00:00:00 2022-09-01 00:00:00 Telephone Jefferson Witt [facility]?MARISELA [facility] MEDICAL OFFICE BUILDING 1.2.840.114 350.1.13.10 4.2.7.2.686 [id number] 044 [id number] [facility] 2022-08-25 00:00:00 2022-08-25 00:00:00 Telephone Jefferson Witt [facility]?MARISELA [facility] MEDICAL OFFICE BUILDING 1.2.840.114 350.1.13.10 4.2.7.2.686 [id number] 044 [id number] [facility] 2022-08-20 00:00:00 2022-08-20 00:00:00 Refill Eduar Critical access hospital MAURICIO?[facility] MEDICAL OFFICE BUILDING 1.2.840.114 350.1.13.10 4.2.7.2.686 [id number] 044 [id number] [facility] 2022-08-20 00:00:00 2022-08-20 00:00:00 Orders Only Doctor Unassigned, [place] [facility] 1.2.840.114 350.1.13.10 4.2.7.2.686 [id number] [id number] [facility] 2022-08-16 00:00:00 2022-08-16 00:00:00 Refill StevensonAlisonMarylou [facility] MEDICAL OFFICE BUILDING 1.2.840.114 350.1.13.10 4.2.7.2.686 [id number] [facility] 2022-08-16 00:00:00 2022-08-16 00:00:00 Refill Jefferson Witt [facility] 1.2.840.114 350.1.13.10 4.2.7.2.686 [id number] 044 [id number] [facility] 2022-08-14 00:00:00 2022-08-14 00:00:00 Telephone Jefferson Witt [facility] 1.2.840.114 350.1.13.10 4.2.7.2.686 [id number] 044 [id number] [facility] 2022-08-11 00:00:00 2022-08-11 00:00:00 Orders Only Doctor Unassigned, [place] [facility] 1.2.840.114 350.1.13.10 4.2.7.2.686 [id number] 009 [id number] [facility] 2022-08-09 00:00:00 2022-08-09 00:00:00 [facility]phone [facility] OFF[facility] BUILDING 1.2.840.114 350.1.13.10 4.2.7.2.686 [id number] 044 [id number] [facility] 2022-08-08 00:00:00 2022-08-08 00:00:00 Telephone Jefferson Witt [facility] 1.2.840.114 350.1.13.10 4.2.7.2.686 [id number] 044 [id number] [facility] 2022-08-08 00:00:00 2022-08-08 00:00:00 Telephone Jefferson Witt [facility] BU[facility] 1.2.840.114 350.1.13.10 4.2.7.2.686 [id number] 044 [id number] [facility] 2022-08-07 12:00:00 2022-08-07 12:15:00 [facility] BUILD[facility] 1.2840.114 350.1.13.10 4.2.7.2.686 [id number] 044 [id number] [facility] 2022-08-07 12:00:00 2022-08-07 12:00:00 Out[facility] [id number] [facility] 2022-08-03 00:00:00 2022-08-03 00:00:00 Nurse Triage Faustian Oleg Leach [facility] 1.2840.114 350.1.13.10 4.2.7.2.686 [id number] 019 [id number] [facility] 2022-08-03 00:00:00 2022-08-03 00:00:00 Orders Only Doctor Unassigned, [place] [facility] 1.2840.114 350.1.13.10 4.2.7.2.686 [id number] 009 [id number] [facility] 2022-07-29 00:00:00 2022-07-29 00:00:00 Refill [facility] MEDICAL OFFICE BUILDING 1.2840.114 350.1.13.10 4.2.7.2.686 [id number] 044 [id number] [facility] 2022-07-22 00:00:00 2022-07-22 00:00:00 Refill Marylou Gamino [facility] MA[facility]IO?[facility] BUILDING 1.2840.114 350.1.13.10 4.2.7.2.686 [id number] [facility] 2022-07-21 00:00:00 2022-07-21 00:00:00 Telephone Claudia Porter [facility] NAL BUILDING 1.2840.114 350.1.13.10 4.2.7.2.686 [id number] 059 [id number] [facility] 2022-07-19 13:12:00 2022-07-19 16:24:00 Emergency X JESUS SPAIN [facility] ERT [id number] [facility] 2022-07-19 13:12:00 2022-07-19 16:24:00 Emergency Jesus Spain [facility] 1.2840.114 350.1.13.10 4.2.7.2.686 [id number] [id number] [facility] 2022-07-17 00:00:00 2022-07-17 00:00:00 Telephone Eduar Jefferson [facility]?MAR[facility]ELA [facility] MEDICAL OFFICE BUILDING 1.284.114 350.1.13.10 4.2.7.2.686 [id number] 044 [id number] [facility] 2022-07-16 10:30:00 2022-07-16 11:00:00 Office Visit Rachell Cheng [facility] BUILDING 1.284.114 350.1.13.10 4.2.7.2.686 [id number] [facility] 2022-07-16 10:30:00 2022-07-16 10:30:00 Outpatient R RACHELL CHENG STRAAKLesli [facility] [id number] [facility] 2022-07-15 00:00:00 2022-07-15 00:00:00 Telephone Eduar [facility]?MARISELA [facility] MEDICAL OFFICE BUILDING 1.284.114 350.1.13.10 4.2.7.2.686 [id number] 044 [id number] [facility] 2022-07-14 00:00:00 2022-07-14 00:00:00 Telephone Cluadia Porter [facility] NAL BUILDING 1.2840.114 350.1.13.10 4.2.7.2.686 [id number] 059 [id number] [facility] 2022-07-07 00:00:00 2022-07-07 00:00:00 Telephone Claudia Porter [facility] BUILDING 1.2.840.114 350.1.13.10 4.2.7.2.686 [id number] [id number] [facility] 2022-07-03 11:30:00 2022-07-03 11:30:00 Outpatient R ROSETTE CONTRERAS [facility] [id number] [facility] 2022-07-02 00:00:00 2022-07-02 00:00:00 Refill Eduar Critical access hospital MA[facility]ICIO?[facility] MEDICAL OFFICE BUILDING 1.2.840.114 350.1.13.10 4.2.7.2.686 [id number] 044 [id number] [facility] 2022-06-30 00:00:00 2022-06-30 00:00:00 Refill Eduar Critical access hospital [facility]ICIO?[facility] MEDICAL OFFICE BUILDING 1.2.840.114 350.1.13.10 4.2.7.2.686 [id number] 044 [id number] [facility] 2022-06-30 00:00:00 2022-06-30 00:00:00 Telephone Claudia Porter [facility] BUILDING 1.2.840.114 350.1.13.10 4.2.7.2.686 [id number] 059 [id number] [facility] 2022-06-25 00:00:00 2022-06-25 00:00:00 Telephone Rosette Contreras [facility] MA[facility]ICIO?[facility] MEDICAL OFFICE BUILDING 1.2.840.114 350.1.13.10 4.2.7.2.686 [id number] 044 [id number] [facility] 2022-06-19 13:00:00 2022-06-19 13:15:00 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 Visit [facility] Sleep Lab Rachell Cheng [facility] 1.114 350.1.13.10 4.2.7.2.686 [id number] [facility] 2022-06-19 13:00:00 2022-06-19 13:00:00 Outpatient R RACHELL CHENG STRAAKLesli [facility] [id number] [facility] 2022-06-19 00:00:00 2022-06-19 00:00:00 Orders Only Doctor Unassigned, [place] [facility] 1.114 350.1.13.10 4.2.7.2.686 [id number] [id number] [facility] 2022-06-19 00:00:00 2022-06-19 00:00:00 Refill Eduar [facility]?SUSANNEUlices [facility] MEDICAL OFFICE BUILDING 1.84114 350.1.13.10 4.2.7.2.686 [id number] 044 [id number] [facility] 2022-06-18 13:00:00 2022-06-18 13:00:00 Outpatient R RACHELL CHENG STRAAKLesli [facility] [id number] [facility] 2022-06-17 00:00:00 2022-06-17 00:00:00 [facility] MEDICAL OFFICE BUILDING 1.84114 350.1.13.10 4.2.7.2.686 [id number] 044 [id number] [facility] 2022-06-17 00:00:00 2022-06-17 00:00:00 Patient Secure Msg Doctor Unassigned, [place] [facility] MEDICAL OFFICE BUILDING 1.84114 350.1.13.10 4.2.7.2.686 [id number] 044 [id number] [facility] 2022-06-16 11:44:53 2022-06-16 11:44:53 Outpatient [facility] [id number] Glen Gutierrez 2022-06-16 00:00:00 2022-06-16 00:00:00 Telephone Claudia Porter [facility] BUILDING 1.2.840.114 350.1.13.10 4.2.7.2.686 [id number] 059 [id number] [facility] 2022-06-13 11:15:00 2022-06-13 11:30:00 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 Visit 2, Adc Lab Claudia Porter [facility] BUILDING 1..840.114 350.1.13.10 4.2.7.2.686 [id number] [facility] 2022-06-13 11:15:00 2022-06-13 11:15:00 Outpatient R CLAUDIA PORTER [facility] [id number] [facility] 2022-06-12 00:00:00 2022-06-12 00:00:00 Telephone ConcepciónevanClaudia [facility] BUILDING 1.2.840.114 350.1.13.10 4.2.7.2.686 [id number] 059 [id number] [facility] 2022-06-12 00:00:00 2022-06-12 00:00:00 Telephone Jefferson Witt [facility]NEUlices [facility] BUILD[facility] 1..840.114 350.1.13.10 4.2.7.2.686 [id number] 044 [id number] [facility] 2022-06-11 10:08:55 2022-06-11 23:59:00 Outpatient R JEFFERSON WITT [facility] [id number] [facility] 2022-06-11 10:08:55 2022-06-11 23:59:00 Hospital Encounter Jefferson Witt [facility] 1.84.114 350.1.13.10 4.2.7.2.686 [id number] [facility] 2022-06-10 14:20:00 2022-06-10 16:26:04 Outpatient R CONCEPCIÓNEVAN CLAUDIA [facility] [id number] [facility] 2022-06-10 14:20:00 2022-06-10 16:26:04 Office Visit Claudia Porter [facility] NAL BUILDING 1.84.114 350.1.13.10 4.2.7.2.686 [id number] 059 [id number] [facility] 2022-06-05 00:00:00 2022-06-05 00:00:00 Refill Marylou Gamino [facility]?SUSANNEUlices [facility] MEDICAL OFFICE BUILDING 1.84.114 350.1.13.10 4.2.7.2.686 [id number] [facility] 2022-06-04 10:30:00 2022-06-04 11:55:43 Outpatient R ROSETTE CONTRERAS [facility] [id number] [facility] 2022-06-04 10:30:00 2022-06-04 11:55:43 Office Visit Rosette Contreras [facility] OFF[facility] BUILDING 1.84.114 350.1.13.10 4.2.7.2.686 [id number] 044 [id number] [facility] 2022-06-04 00:00:00 2022-06-04 00:00:00 Refill Witt, Jefferson [facility] MEDICAL OFFICE BUILDING 1.84.114 350.1.13.10 4.2.7.2.686 [id number] 044 [id number] [facility] 2022-05-29 10:17:00 2022-05-29 14:59:00 Emergency X DAYLIN MOJICA [facility] ERT [id number] [facility] 2022-05-29 10:17:00 2022-05-29 14:59:00 Emergency Daylin Mojica G [facility] 1.2.840.114 350.1.13.10 4.2.7.2.686 [id number] 084 [id number] [facility] 2022-05-29 00:00:00 2022-05-29 00:00:00 Telephone Eduar [facility]?MARISELA [facility] MEDICAL OFFICE BUILDING 1.2.840.114 350.1.13.10 4.2.7.2.686 [id number] 044 [id number] [facility] 2022-05-29 00:00:00 2022-05-29 00:00:00 Refill [facility] MEDICAL OFFICE BUILDING 1.2.840.114 350.1.13.10 4.2.7.2.686 [id number] 044 [id number] [facility] 2022-05-27 00:00:00 2022-05-27 00:00:00 Telephone [facility] MEDICAL OFFICE BUILDING 1.2.840.114 350.1.13.10 4.2.7.2.686 [id number] 044 [id number] [facility] 2022-05-27 00:00:00 2022-05-27 00:00:00 Telephone Team, [facility] 1.2.840.114 350.1.13.10 4.2.7.2.686 [id number] 082 [id number] [facility] 2022-05-23 16:30:00 2022-05-23 17:15:04 Outpatient GIOVANY GOTTI [facility] [id number] [facility] 2022-05-23 16:30:00 2022-05-23 17:15:04 Office Visit Giovany Antoine [facility] 1.2.840.114 350.1.13.10 4.2.7.2.686 [id number] [facility] 2022-05-23 16:30:00 2022-05-23 16:30:00 Outpatient R ANTOINEGIOVANY [facility] [id number] [facility] 2022-05-23 00:00:00 2022-05-23 00:00:00 Refill Marylou Gamino [facility] MA[facility]ICIO?[facility] 1.840.114 350.1.13.10 4.2.7.2.686 [id number] [facility] 2022-05-23 00:00:00 2022-05-23 00:00:00 Refill Eduar Jefferson [facility] MEDICAL OFFICE BUILDING 1.84.114 350.1.13.10 4.2.7.2.686 [id number] 044 [id number] [facility] 2022-05-20 00:00:00 2022-05-20 00:00:00 [facility] 1.840.114 350.1.13.10 4.2.7.2.686 [id number] 044 [id number] [facility] 2022-05-08 12:00:00 2022-05-08 12:18:22 Outpatient R BASSAM WITTONY [facility] [id number] [facility] 2022-05-08 12:00:00 2022-05-08 12:18:22 Office [facility] 1.284.114 350.1.13.10 4.2.7.2.686 [id number] 044 [id number] [facility] 2022-05-08 12:00:00 2022-05-08 12:00:00 Outpatient JEFFERSON PEREZ [facility] [id number] [facility] 2022-05-08 00:00:00 2022-05-08 00:00:00 [facility] 1.2.840.114 350.1.13.10 4.2.7.2.686 [id number] [facility] 2022-05-08 00:00:00 2022-05-08 00:00:00 Orders Only Doctor Unassigned, [place] [facility] 1.2840.114 350.1.13.10 4.2.7.2.686 [id number] [facility] 2022-05-07 00:00:00 2022-05-07 00:00:00 [facility]ill [facility] MAURICIO?[facility] 1.2.840.114 350.1.13.10 4.2.7.2.686 [id number] [facility] 2022-05-06 00:00:00 2022-05-06 00:00:00 [facility] 1.2.840.114 350.1.13.10 4.2.7.2.686 [id number] [facility] 2022-04-29 00:00:00 2022-04-29 00:00:00 Refill Marylou Gamino [facility] 1.2840.114 350.1.13.10 4.2.7.2.686 [id number] [facility] 2022-04-24 00:00:00 2022-04-24 00:00:00 Outpatient JEFFERSON PEREZ [facility] [id number] [facility] 2022-04-24 00:00:00 2022-04-24 00:00:00 Refill Jefferson Witt [facility] MIRNA GLEASON?MARISELA [facility] 1.2840.114 350.1.13.10 4.2.7.2.686 [id number] [facility] 2022-04-23 00:00:00 2022-04-23 00:00:00 [facility]ill [facility] 1.2840.114 350.1.13.10 4.2.7.2.686 [id number] [facility] 2022-04-23 00:00:00 2022-04-23 00:00:00 Refill Jefferson Witt [facility] 1.2840.114 350.1.13.10 4.2.7.2.686 [id number] [facility] 2022-04-09 00:00:00 2022-04-09 00:00:00 Refill Jefferson Witt [facility] 1.2840.114 350.1.13.10 4.2.7.2.686 [id number] [facility] 2022-04-08 00:00:00 2022-04-08 00:00:00 Telephone Jefferson Witt [facility] 1.2840.114 350.1.13.10 4.2.7.2.686 [id number] [facility] 2022-03-31 00:00:00 2022-03-31 00:00:00 Refill Jefferson Witt [facility] 1.2840.114 350.1.13.10 4.2.7.2.686 [id number] [facility] 2022-03-27 13:20:00 2022-03-27 13:20:00 Outpatient R WITT JEFFERSON [facility] [id number] [facility] 2022-03-26 00:00:00 2022-03-26 00:00:00 [facility] 1.2840.114 350.1.13.10 4.2.7.2.686 [id number] [facility] 2022-03-11 00:00:00 2022-03-11 00:00:00 [facility] 1.840.114 350.1.13.10 4.2.7.2.686 [id number] [id number] [facility] 2022-03-06 00:00:00 2022-03-06 00:00:00 Telephone Eduar Jefferson [facility] 1.840.114 350.1.13.10 4.2.7.2.686 [id number] [id number] [facility] [facility] 2022-03-01 00:00:00 2022-03-01 00:00:00 Refill Eduar Jefferson [facility] MEDICAL OFFICE BUILDING 1.84.114 350.1.13.10 4.2.7.2.686 [id number] [facility] 2022-02-27 00:00:00 2022-02-27 00:00:00 Refill Marylou Gamino [facility] MEDICAL OFFICE BUILDING 1.284.114 350.1.13.10 4.2.7.2.686 [id number] [facility] 2022-02-26 00:00:00 2022-02-26 00:00:00 Telephone Giovany Antoine [facility] MEDICAL OFFICE BUILDING 1.2.840.114 350.1.13.10 4.2.7.2.686 [id number] [facility] 2022-02-24 00:00:00 2022-02-24 00:00:00 Telephone Jefferson Witt [facility] MED[facility] OFFICE BUILD[facility] 1.2840.114 350.1.13.10 4.2.7.2.686 [id number] 044 [id number] [facility] 2022-02-24 00:00:00 2022-02-24 00:00:00 Refill Eduar Critical access hospital [facility] MEDICAL OFFICE BUILD[facility] 1..840.114 350.1.13.10 4.2.7.2.686 [id number] [id number] [facility] 2022-02-21 10:45:00 2022-02-21 10:45:00 Outpatient ARMINDA COLLAZO [facility] [id number] [facility] 2022-02-11 00:00:00 2022-02-11 00:00:00 Telephone Eduar Critical access hospital [facility] MEDICAL OFFICE BUILDING 1..840.114 350.1.13.10 4.2.7.2.686 [id number] [facility] 2022-02-10 00:00:00 2022-02-10 00:00:00 Telephone Eduar Critical access hospital [facility] MEDICAL OFFICE BUILDING 1.2.840.114 350.1.13.10 4.2.7.2.686 [id number] 044 [id number] [facility] 2022-02-05 09:45:00 2022-02-05 10:02:08 Outpatient R JEFFERSON WITT [facility] [id number] [facility] 2022-02-05 09:45:00 2022-02-05 10:02:08 Office Visit Jefferson Witt [facility] MEDICAL OFFICE BUILDING 1.2840.114 350.1.13.10 4.2.7.2.686 [id number] [id number] [facility] 2022-02-05 00:00:00 2022-02-05 00:00:00 Refill dEuar Jefferson [facility] MEDICAL OFFICE BUILDING 1.2840.114 350.1.13.10 4.2.7.2.686 [id number] [facility] 2022-02-05 00:00:00 2022-02-05 00:00:00 Refill Eduar Jefferson [facility] MEDICAL OFFICE BUILDING 1.840.114 350.1.13.10 4.2.7.2.686 [id number] 044 [id number] [facility] 2022-02-05 00:00:00 2022-02-05 00:00:00 Telephone Noemi Waite [facility] MEDICAL OFFICE BUILDING 1.284.114 350.1.13.10 4.2.7.2.686 [id number] [facility] 2022-02-05 00:00:00 2022-02-05 00:00:00 Orders Only Doctor Unassigned, [place] [facility] 1.20.114 350.1.13.10 4.2.7.2.686 [id number] [facility] 2022-01-31 00:00:00 2022-01-31 00:00:00 Refill Giovany Antoine [facility] MEDICAL OFFICE BUILDING 1.284.114 350.1.13.10 4.2.7.2.686 [id number] [facility] 2022-01-27 00:00:00 2022-01-27 00:00:00 Nora Badillo [facility] MEDICAL OFFICE BUILDING 1..840.114 350.1.13.10 4.2.7.2.686 [id number] 044 [id number] [facility] 2022-01-26 00:00:00 2022-01-26 00:00:00 DoniGiovany Waddell Claudia [facility] MEDICAL OFFICE BUILDING 1..840.114 350.1.13.10 4.2.7.2.686 [id number] [facility] 2022-01-24 15:30:00 2022-01-24 15:30:00 Outpatient GIOVANY GOTTI [facility] [id number] [facility] 2022-01-24 15:30:00 2022-01-24 15:30:00 Outpatient R GIOVANY ANTOINE [facility] [id number] [facility] 2022-01-13 00:00:00 2022-01-13 00:00:00 Telephone Jefferson Witt [facility] MEDICAL OFFICE BUILDING 1..840.114 350.1.13.10 4.2.7.2.686 [id number] [facility] 2022-01-10 15:30:00 2022-01-10 15:30:00 Outpatient R GIOVANY ANTOINE [facility] [id number] [facility] 2022-01-09 10:30:00 2022-01-09 10:37:24 Outpatient R NOEMI WAITE [facility] [id number] [facility] 2022-01-09 10:30:00 2022-01-09 10:37:24 Office Visit Noemi Waite [facility] MEDICAL OFFICE BUILDING 1..840.114 350.1.13.10 4.2.7.2.686 [id number] [facility] 2022-01-09 10:30:00 2022-01-09 10:37:24 Outpatient R MARIANN NOEMI [facility] [id number] [facility] 2022-01-02 10:30:00 2022-01-02 10:45:00 [facility] 1.2.840.114 350.1.13.10 4.2.7.2.686 [id number] [facility] 2022-01-02 10:30:00 2022-01-02 10:30:00 Outpatient R MARIANN [facility] [id number] [facility] 2022-01-02 10:30:00 2022-01-02 10:30:00 Outpatient R MARIANN NOEMI [facility] [id number] [facility] 2021-12-31 00:00:00 2021-12-31 00:00:00 Refill Eduar Critical access hospital [facility] OFF[facility] BUILDING 1.2.840.114 350.1.13.10 4.2.7.2.686 [id number] [id number] [facility] 2021-12-31 00:00:00 2021-12-31 00:00:00 Refill Witt Critical access hospital [facility] OFF[facility] BU[facility] 1.2.840.114 350.1.13.10 4.2.7.2.686 [id number] [facility] 2021-12-26 14:00:00 2021-12-26 14:37:45 Outpatient R NOEMI WAITE [facility] [id number] [facility] 2021-12-26 14:00:00 2021-12-26 14:37:45 Office Visit Mariann [facility] BU[facility] 1.2.840.114 350.1.13.10 4.2.7.2.686 [id number] [facility] 2021-12-26 00:00:00 2021-12-26 00:00:00 Telephone Giovany Antoine [facility] 1.2.840.114 350.1.13.10 4.2.7.2.686 [id number] [facility] 2021-12-26 00:00:00 2021-12-26 00:00:00 Telephone Giovany Antoine [facility] MEDICAL OFFICE BUILDING 1.84.114 350.1.13.10 4.2.7.2.686 [id number] [facility] 2021-12-25 00:00:00 2021-12-25 00:00:00 Refill Eduar Critical access hospital [facility] MEDICAL OFFICE BUILDING 1.84.114 350.1.13.10 4.2.7.2.686 [id number] [facility] 2021-12-19 10:15:00 2021-12-19 11:07:04 Outpatient R DILAN LOVE [facility] [id number] [facility] 2021-12-19 10:15:00 2021-12-19 11:07:04 Office Visit Dilan [facility] MEDICAL OFFICE BUILDING 1.2840.114 350.1.13.10 4.2.7.2.686 [id number] [facility] 2021-12-17 00:00:00 2021-12-17 00:00:00 Telephone Jefferson Witt [facility] MEDICAL OFFICE BUILDING 1.2840.114 350.1.13.10 4.2.7.2.686 [id number] [id number] [facility] 2021-12-12 10:15:00 2021-12-12 11:10:34 Outpatient R NOEMI WAITE [facility] [id number] [facility] 2021-12-12 10:15:00 2021-12-12 11:10:34 Office Visit Noemi Waite [facility] 1..840.114 350.1.13.10 4.2.7.2.686 [id number] [facility] 2021-12-12 10:15:00 2021-12-12 11:10:34 Outpatient R NOEMI WAITE [facility] [id number] [facility] 2021-12-12 10:15:00 2021-12-12 10:15:00 Outpatient Hany WAITE NOEMI [facility] [id number] [facility] 2021-12-11 00:00:00 2021-12-11 00:00:00 Telephone Eduar Critical access hospital [facility] MEDICAL OFFICE BUILDING 1.840.114 350.1.13.10 4.2.7.2.686 [id number] [facility] 2021-12-10 10:00:00 2021-12-10 10:15:00 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 Visit 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, Fritz - [facility] 1..840.114 350.1.13.10 4.2.7.2.686 [id number] [facility] 2021-12-10 10:00:00 2021-12-10 10:00:00 Outpatient R EDUAR JEFFERSON [facility] [id number] [facility] 2021-12-10 09:45:00 2021-12-10 10:00:00 Office Visit Eduar Critical access hospital [facility] 1..840.114 350.1.13.10 4.2.7.2.686 [id number] [facility] 2021-12-10 09:45:00 2021-12-10 09:45:00 Outpatient JEFFERSON PEREZ [facility] [id number] [facility] 2021-12-05 14:15:00 2021-12-05 14:30:00 Office Visit Noemi Waite [facility] 1.84.114 350.1.13.10 4.2.7.2.686 [id number] [facility] 2021-12-05 14:15:00 2021-12-05 14:15:00 Outpatient R MARIANN [facility] [id number] [facility] 2021-12-05 14:15:00 2021-12-05 14:15:00 Outpatient Hany WAITE [facility] [id number] [facility] 2021-12-05 00:00:00 2021-12-05 00:00:00 Orders Only Doctor Unassigned, [place] [facility] 1..114 350.1.13.10 4.2.7.2.686 [id number] [facility] 2021-12-02 00:00:00 2021-12-02 00:00:00 RefJefferson Moya [facility] MEDICAL OFFICE BUILDING 1.84.114 350.1.13.10 4.2.7.2.686 [id number] [facility] 2021-12-01 00:00:00 2021-12-01 00:00:00 Refill Marylou Gamino [facility] 1.84.114 350.1.13.10 4.2.7.2.686 [id number] [facility] 2021-12-01 00:00:00 2021-12-01 00:00:00 Refill Jefferson Witt [facility] 1.2840.114 350.1.13.10 4.2.7.2.686 [id number] [facility] 2021-11-27 00:00:00 2021-11-27 00:00:00 Orders Only Doctor Unassigned, [place] [facility] 1.2.840.114 350.1.13.10 4.2.7.2.686 [id number] [facility] 2021-11-26 00:00:00 2021-11-26 00:00:00 Telephone Noemi Waite [facility] 1.2840.114 350.1.13.10 4.2.7.2.686 [id number] [facility] 2021-11-25 00:00:00 2021-11-25 00:00:00 Telephone Jefferson Witt [facility] MEDICAL OFFICE BUILDING 1.2840.114 350.1.13.10 4.2.7.2.686 [id number] [facility] 2021-11-25 00:00:00 2021-11-25 00:00:00 Telephone Jefferson Witt [facility] MEDICAL OFFICE BUILDING 1.2840.114 350.1.13.10 4.2.7.2.686 [id number] 044 [id number] [facility] 2021-11-20 00:00:00 2021-11-20 00:00:00 Telephone Noemi Waite [facility] 1.2840.114 350.1.13.10 4.2.7.2.686 [id number] [facility] 2021-11-19 13:30:00 2021-11-19 13:45:00 Office Visit Noemi Waite [facility] 1.840.114 350.1.13.10 4.2.7.2.686 [id number] [facility] 2021-11-19 13:30:00 2021-11-19 13:30:00 Outpatient R WAITENOEMI [facility] [id number] [facility] 2021-11-13 09:45:00 2021-11-13 09:54:37 Office Visit Eduar Jefferson [facility] OFF[facility] BUILDING 1.84.114 350.1.13.10 4.2.7.2.686 [id number] [id number] [facility] 2021-11-13 09:45:00 2021-11-13 09:54:37 Outpatient R WITT JEFFERSON [facility] [id number] [facility] 2021-11-13 09:45:00 2021-11-13 09:45:00 Outpatient R WITT JEFFERSON [facility] [id number] [facility] 2021-11-13 09:45:00 2021-11-13 09:45:00 Outpatient R EDUAR JEFFERSON [facility] [id number] [facility] 2021-11-12 00:00:00 2021-11-12 00:00:00 Refill Eduar Jefferson [facility] OFFICE BUILDING ONE 1.84.114 350.1.13.10 4.2.7.2.686 [id number] [facility] 2021-11-11 00:00:00 2021-11-11 00:00:00 RefMarylou Lerma [facility] 1.840.114 350.1.13.10 4.2.7.2.686 [id number] [facility] 2021-11-04 00:00:00 2021-11-04 00:00:00 Refill Jefferson Witt [facility] MEDICAL OFFICE BUILDING 1.2.840.114 350.1.13.10 4.2.7.2.686 [id number] [facility] 2021-11-01 00:00:00 2021-11-01 00:00:00 Refill Marylou Gamino [facility] 1.2.840.114 350.1.13.10 4.2.7.2.686 [id number] [facility] 2021-10-31 00:00:00 2021-10-31 00:00:00 Refill Eduar Jefferson [facility] MEDICAL OFFICE BUILDING 1.2.840.114 350.1.13.10 4.2.7.2.686 [id number] [facility] 2021-10-21 00:00:00 2021-10-21 00:00:00 Telephone Jefferson Witt [facility] MEDICAL OFFICE BUILDING 1.2.840.114 350.1.13.10 4.2.7.2.686 [id number] [facility] 2021-10-10 00:00:00 2021-10-10 00:00:00 Telephone Noemi Waite [facility] MEDICAL OFFICE BUILDING 1.2.840.114 350.1.13.10 4.2.7.2.686 [id number] [facility] 2021-10-07 12:15:00 2021-10-07 12:15:00 Outpatient R JEFFERSON WITT [facility] [id number] [facility] 2021-10-02 14:45:00 2021-10-02 15:30:28 Outpatient R NOEMI WAITE [facility] [id number] [facility] 2021-10-02 14:45:00 2021-10-02 15:15:00 Office Visit Noemi Waite [facility] OFFICE BUILDING 1.2.840.114 350.1.13.10 4.2.7.2.686 [id number] [facility] 2021-10-02 14:45:00 2021-10-02 14:45:00 Outpatient R ALISON WAITETT [facility] [id number] [facility] 2021-10-02 00:00:00 2021-10-02 00:00:00 Refill Eduar Critical access hospital [facility] OFFICE BUILDING ONE 1.2.840.114 350.1.13.10 4.2.7.2.686 [id number] [facility] 2021-09-20 10:30:00 2021-09-20 10:45:00 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 Visit Lab, Fritz - Erik Witt [facility] MEDICAL OFFICE BUILDING 1.2.840.114 350.1.13.10 4.2.7.2.686 [id number] [facility] 2021-09-20 10:30:00 2021-09-20 10:30:00 Outpatient R JEFFERSON WITT [facility] [id number] [facility] 2021-09-19 10:30:00 2021-09-19 10:30:00 Outpatient R [facility] [id number] [facility] 2021-09-17 00:00:00 2021-09-17 00:00:00 Telephone Eduar [facility] OFFICE BUILDING 1.2.840.114 350.1.13.10 4.2.7.2.686 [id number] [facility] 2021-09-17 00:00:00 2021-09-17 00:00:00 Telephone Jefferson Witt [facility] 1..840.114 350.1.13.10 4.2.7.2.686 [id number] [facility] 2021-09-13 10:30:00 2021-09-13 10:30:00 Outpatient JEFFERSON PEREZ [facility] [id number] [facility] 2021-09-12 12:00:00 2021-09-12 12:00:00 Outpatient JEFFERSON PEREZ [facility] [id number] [facility] 2021-09-12 10:15:00 2021-09-12 10:30:00 Office Visit eJfferson Witt [facility] 1..840.114 350.1.13.10 4.2.7.2.686 [id number] [facility] 2021-09-12 10:15:00 2021-09-12 10:15:00 Outpatient JEFFERSON PEREZ [facility] [id number] [facility] 2021-09-12 10:15:00 2021-09-12 10:15:00 Outpatient JEFFERSON PEREZ [facility] [id number] [facility] 2021-09-12 00:00:00 2021-09-12 00:00:00 Telephone Farshad Antoinenaren Taylor [facility] 1..840.114 350.1.13.10 4.2.7.2.686 [id number] [facility] 2021-09-10 10:30:00 2021-09-10 11:01:21 Outpatient R MARYLOU GAMINO [facility] [id number] [facility] 2021-09-10 10:30:00 2021-09-10 11:01:21 Office Visit Marylou Gamino [facility] 1..840.114 350.1.13.10 4.2.7.2.686 [id number] [facility] 2021-09-10 10:30:00 2021-09-10 11:01:21 Outpatient R MARYLOU GAMINO [facility] [id number] [facility] 2021-09-10 10:30:00 2021-09-10 10:30:00 [facility] [id number] [facility] 2021-09-10 10:30:00 2021-09-10 10:30:00 [facility] [id number] [facility] 2021-09-10 10:30:00 2021-09-10 10:30:00 [facility] [id number] [facility] 2021-09-10 10:30:00 2021-09-10 10:30:00 Outpatient R MARYLOU GAMINO [facility] [id number] [facility] 2021-09-04 00:00:00 2021-09-04 00:00:00 Refill Eduar [facility] 1..840.114 350.1.13.10 4.2.7.2.686 [id number] [facility] 2021-09-03 14:14:00 2021-09-03 16:13:00 Emergency X PETE SAGEN [facility] ERT [id number] [facility] 2021-09-03 14:14:00 2021-09-03 16:13:00 Emergency Praveen Sage Hany [facility] ..840.114 350.1.13.10 4.2.7.2.686 [id number] [facility] 2021-09-03 00:00:00 2021-09-03 00:00:00 [facility] 1..114 350.1.13.10 4.2.7.2.686 [id number] [id number] [facility] 2021-09-02 00:00:00 2021-09-02 00:00:00 Refill Jefferson Witt [facility] OFFICE BUILDING ONE 1.114 350.1.13.10 4.2.7.2.686 [id number] 044 [id number] [facility] 2021-09-02 00:00:00 2021-09-02 00:00:00 Refill Jefferson Witt [facility] 1.114 350.1.13.10 4.2.7.2.686 [id number] [id number] [facility] 2021-08-31 00:00:00 2021-08-31 00:00:00 Patient Secure Msg Doctor Unassigned, [place] [facility] 1..114 350.1.13.10 4.2.7.2.686 [id number] [facility] 2021-08-29 11:45:00 2021-08-29 12:00:00 Office Visit Jefferson Witt [facility] 1.114 350.1.13.10 4.2.7.2.686 [id number] [facility] 2021-08-29 11:45:00 2021-08-29 11:45:00 Outpatient R JEFFERSON WITT [facility] [id number] [facility] 2021-08-28 00:00:00 2021-08-28 00:00:00 Refill Nora Morrow [facility] OFFICE BUILDING ONE 1.114 350.1.13.10 4.2.7.2.686 [id number] [facility] 2021-08-15 10:45:00 2021-08-15 11:00:00 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 Visit Lab, Fritz Valencia Eduar [facility] MEDICAL OFFICE BUILDING 1..840.114 350.1.13.10 4.2.7.2.686 [id number] [facility] 2021-08-15 10:45:00 2021-08-15 10:45:00 Outpatient JEFFERSON PEREZ [facility] [id number] [facility] 2021-08-15 10:00:00 2021-08-15 10:15:00 Office Visit Eduar [facility] MEDICAL OFFICE BUILDING 1..840.114 350.1.13.10 4.2.7.2.686 [id number] [facility] 2021-08-15 10:00:00 2021-08-15 10:00:00 Outpatient JEFFERSON PEREZ [facility] [id number] [facility] 2021-08-15 10:00:00 2021-08-15 10:00:00 Outpatient JEFFERSON PEREZ [facility] [id number] [facility] 2021-08-15 10:00:00 2021-08-15 10:00:00 Outpatient JEFFERSON PEREZ [facility] [id number] [facility] 2021-08-15 00:00:00 2021-08-15 00:00:00 Orders Only Doctor Unassigned, [place] [facility] 1.840.114 350.1.13.10 4.2.7.2.686 [id number] [facility] 2021-08-12 10:00:00 2021-08-12 10:00:00 Outpatient JEFFERSON PEREZ [facility] [id number] [facility] 2021-08-12 10:00:00 2021-08-12 10:00:00 Outpatient JEFFERSON PEREZ [facility] [id number] [facility] 2021-08-07 00:00:00 2021-08-07 00:00:00 Telephone Brian Ventura [facility] 1.2.840.114 350.1.13.10 4.2.7.2.686 [id number] [facility] 2021-08-06 00:00:00 2021-08-06 00:00:00 RefJefferson Moya [facility] ONE 1.2840.114 350.1.13.10 4.2.7.2.686 [id number] [facility] 2021-08-06 00:00:00 2021-08-06 00:00:00 Telephone Brian Ventura [facility] 1.2840.114 350.1.13.10 4.2.7.2.686 [id number] [facility] 2021-08-05 09:54:13 2021-08-05 23:59:00 Outpatient R BRIAN VENTURA [facility] [id number] [facility] 2021-08-05 09:54:13 2021-08-05 23:59:00 Hospital Encounter Brian Ventura [facility] 1.2840.114 350.1.13.10 4.2.7.2.686 [id number] [facility] 2021-08-02 15:30:00 2021-08-02 15:45:00 Laboratory Only Only, Adc Test Maryam Mckeon [facility] 1.2840.114 350.1.13.10 4.2.7.2.686 [id number] [facility] 2021-08-02 15:30:00 2021-08-02 15:30:00 Outpatient R MARYAM MCKEON [facility] [id number] [facility] 2021-07-22 00:00:00 2021-07-22 00:00:00 [facility] 1.84.114 350.1.13.10 4.2.7.2.686 [id number] [facility] 2021-07-16 00:00:00 2021-07-16 00:00:00 Telephone Eduar [facility]IC[facility] 1.84.114 350.1.13.10 4.2.7.2.686 [id number] [facility] 2021-07-10 09:30:00 2021-07-10 09:30:00 Outpatient R JEFFERSON WITT [facility] [id number] [facility] 2021-07-09 00:00:00 2021-07-09 00:00:00 Telephone [facility]IC[facility] 1.84.114 350.1.13.10 4.2.7.2.686 [id number] [facility] 2021-07-08 00:00:00 2021-07-08 00:00:00 [facility] 1.84.114 350.1.13.10 4.2.7.2.686 [id number] [facility] 2021-07-03 15:09:59 2021-07-03 15:24:59 [facility] 1.84.114 350.1.13.10 4.2.7.2.686 [id number] [facility] 2021-07-03 15:15:00 2021-07-03 15:15:00 Outpatient JEFFERSON PEREZ [facility] [id number] [facility] 2021-07-03 00:00:00 2021-07-03 00:00:00 Refprabhjot [facility] OFF[facility] BUILD[facility] ONE 1..840.114 350.1.13.10 4.2.7.2.686 [id number] [id number] [facility] 2021-07-01 00:00:00 2021-07-01 00:00:00 Telephone [facility] MAURICIO?MARISELA [facility] MEDICAL OFFICE BUILDING 1..840.114 350.1.13.10 4.2.7.2.686 [id number] [id number] [facility] 2021-06-26 00:00:00 2021-06-26 00:00:00 Refprabhjot [facility] MAURICIO?MARISELA [facility] OFFICE BUILDING 1..840.114 350.1.13.10 4.2.7.2.686 [id number] 044 [id number] [facility] 2021-06-26 00:00:00 2021-06-26 00:00:00 Telephone [facility] MAURICIO?MARISELA [facility] MEDICAL OFFICE BUILDING 1.2.840.114 350.1.13.10 4.2.7.2.686 [id number] [id number] [facility] 2021-06-24 09:00:00 2021-06-24 09:00:00 Outpatient JEFFERSON PEERZ [facility] [id number] [facility] 2021-06-24 00:00:00 2021-06-24 00:00:00 Telephone Eduar [facility] access hospital MAURICIO?MARISELA [facility] MEDICAL OFFICE BUILDING 1.2.840.114 350.1.13.10 4.2.7.2.686 [id number] 044 [id number] [facility] 2021-06-20 00:00:00 2021-06-20 00:00:00 Telephone Jefferson Witt [facility] MAURICIO?MARISELA [facility] MEDICAL OFFICE BUILDING 1.2.840.114 350.1.13.10 4.2.7.2.686 [id number] [id number] [facility] 2021-06-19 12:00:00 2021-06-19 12:00:00 Outpatient JEFFERSON PEREZ [facility] [id number] [facility] 2021-06-19 10:09:29 2021-06-19 10:24:29 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 Visit Lab, Fritz Valencia [facility] MEDICAL OFFICE BUILDING 1.2.840.114 350.1.13.10 4.2.7.2.686 [id number] [facility] 2021-06-19 09:41:59 2021-06-19 10:11:59 Office Visit Eduar Critical access hospital MAURICIO?[facility] MEDICAL OFFICE BUILDING 1.2.840.114 350.1.13.10 4.2.7.2.686 [id number] 044 [id number] [facility] 2021-06-19 10:00:00 2021-06-19 10:00:00 Outpatient Hany WITT JEFFERSON [facility] [id number] [facility] 2021-06-18 00:00:00 2021-06-18 00:00:00 [facility] MEDICAL OFFICE BUILDING 1.2.840.114 350.1.13.10 4.2.7.2.686 [id number] 044 [id number] [facility] 2021-06-11 14:40:00 2021-06-11 14:40:00 Outpatient ROBBIE BARAHONA [facility] [id number] [facility] 2021-06-10 00:00:00 2021-06-10 00:00:00 Refill Nora Morrow [facility] OFFICE BUILDING ONE 1.84.114 350.1.13.10 4.2.7.2.686 [id number] 044 [id number] [facility] 2021-06-10 00:00:00 2021-06-10 00:00:00 Telephone Eduar Critical access hospital [facility] OFFICE BUILDING 1.84.114 350.1.13.10 4.2.7.2.686 [id number] [facility] 2021-06-09 00:00:00 2021-06-09 00:00:00 Refill Eduar [facility] OFFICE BUILDING ONE 1.84.114 350.1.13.10 4.2.7.2.686 [id number] 044 [id number] [facility] 2021-06-04 14:44:49 2021-06-04 14:45:00 Imm/Inj Visit Nurse, Brenda Hernandez ImmunizatiSevero Fowler [facility] BUILDING 1.84.114 350.1.13.10 4.2.7.2.686 [id number] [facility] 2021-06-04 14:00:00 2021-06-04 14:35:39 Outpatient BRIAN FRANKLIN [facility] [id number] [facility] 2021-06-04 13:38:39 2021-06-04 14:35:39 Office Visit Brian Ventura [facility] BUILDING 1.84.114 350.1.13.10 4.2.7.2.686 [id number] [facility] 2021-06-04 14:30:00 2021-06-04 14:30:00 Outpatient SEVERO JOAQUIN [facility] [id number] [facility] 2021-06-04 10:40:00 2021-06-04 10:40:00 Outpatient SEVERO JOAQUIN [facility] [id number] [facility] 2021-06-04 00:00:00 2021-06-04 00:00:00 Transition of Care EmceeElizabethRoselyn JIMENES 1.840.114 350.1.13.10 4.2.7.2.686 [id number] [facility] 2021-05-31 13:04:00 2021-06-01 12:55:00 Outpatient Rashmi TREVER [facility] [id number] [facility] 2021-05-31 13:04:00 2021-06-01 12:55:00 Hospital Encounter Jesus [place] Jelani [facility] 1.84.114 350.1.13.10 4.2.7.2.686 [id number] [facility] 2021-05-30 13:30:00 2021-05-30 13:30:00 [facility] [id number] [facility] 2021-05-30 00:00:00 2021-05-30 00:00:00 Refprabhjot [facility] OFFICE BUILDING ONE 1.84.114 350.1.13.10 4.2.7.2.686 [id number] [id number] [facility] 2021-05-29 00:00:00 2021-05-29 00:00:00 Juan Witt [facility] Mauricio?Marisela simpson Medical Office Building 1.84.114 350.1.13.10 4.2.7.2.686 [id number] 044 [id number] [facility] 2021-05-28 00:00:00 2021-05-28 00:00:00 Telephone Jefferson Witt [facility] MAURICIO?MARISELA SIMPSON MEDICAL OFFICE BUILDING 1.2.840.114 350.1.13.10 4.2.7.2.686 [id number] 044 [id number] [facility] 2021-05-27 00:00:00 2021-05-27 00:00:00 Telephone Jefferson Witt [facility] Mauricio?Marisela simpson Medical Office Building 1.2.840.114 350.1.13.10 4.2.7.2.686 [id number] 044 [id number] [facility] 2021-05-27 00:00:00 2021-05-27 00:00:00 [facility]?Marisela juarez Medical Office Building 1.284.114 350.1.13.10 4.2.7.2.686 [id number] [facility] 2021-05-22 00:00:00 2021-05-22 00:00:00 [facility] One 1.284.114 350.1.13.10 4.2.7.2.686 [id number] 044 [id number] [facility] 2021-05-12 00:00:00 2021-05-12 00:00:00 [facility] One 1.2840.114 350.1.13.10 4.2.7.2.686 [id number] [id number] [facility] 2021-05-10 13:30:00 2021-05-10 14:11:31 Outpatient R MARYLOU GAMINO [facility] [id number] [facility] 2021-05-10 13:28:18 2021-05-10 14:11:31 [facility]MAR[facility]A SIMPSON MEDICAL OFFICE BUILDING 1.284.114 350.1.13.10 4.2.7.2.686 [id number] [facility] 2021-05-09 00:00:00 2021-05-09 00:00:00 Telephone Antoine, Giovany Claudia [facility] nal Building 1.2.840.114 350.1.13.10 4.2.7.2.686 [id number] [facility] 2021-05-06 00:00:00 2021-05-06 00:00:00 Orders Only Doctor Unassigned, [place] [facility] 1.84.114 350.1.13.10 4.2.7.2.686 [id number] [facility] 2021-05-01 00:00:00 2021-05-01 00:00:00 Telephone Jefferson Witt [facility] Medical Office Building 1.840.114 350.1.13.10 4.2.7.2.686 [id number] 044 [id number] [facility] 2021-04-25 08:59:52 2021-04-25 09:29:52 [facility] Building 1.2.840.114 350.1.13.10 4.2.7.2.686 [id number] 044 [id number] [facility] 2021-04-25 09:00:00 2021-04-25 09:00:00 Outpatient R JEFFERSON WITT [facility] [id number] [facility] 2021-04-24 09:29:51 2021-04-24 09:50:31 Urgent Care Ana Riddle, Doron [facility] Medical Office Building 1.2.840.114 350.1.13.10 4.2.7.2.686 [id number] [facility] 2021-04-24 09:40:00 2021-04-24 09:40:00 Outpatient DORON CANTU [facility] [id number] [facility] 2021-04-18 00:00:00 2021-04-18 00:00:00 Orders Only Doctor Unassigned, [place] [facility] 1.2840.114 350.1.13.10 4.2.7.2.686 [id number] [facility] 2021-04-15 00:00:00 2021-04-15 00:00:00 Telephone StevensonMarylou [facility] Building 1.284.114 350.1.13.10 4.2.7.2.686 [id number] [facility] 2021-04-11 09:38:42 2021-04-11 09:57:48 Office Visit Jefferson Witt [facility]?Marisela [facility] Medical Office Building 1.284.114 350.1.13.10 4.2.7.2.686 [id number] 044 [id number] [facility] 2021-04-11 09:45:00 2021-04-11 09:45:00 Outpatient Hany JEFFERSON WITT [facility] [id number] [facility] 2021-04-11 08:12:22 2021-04-11 08:27:22 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 Visit 2, Adc Lab Jefferson Witt [facility] Building 1.84.114 350.1.13.10 4.2.7.2.686 [id number] [facility] 2021-04-11 08:12:22 2021-04-11 08:27:22 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 Visit 2, [facility] Lab Jefferson Witt [facility] Building 1.2840.114 350.1.13.10 4.2.7.2.686 [id number] [facility] 2021-04-10 12:00:00 2021-04-10 12:00:00 Outpatient R WITT JEFFERSON [facility] [id number] [facility] 2021-03-31 00:00:00 2021-03-31 00:00:00 [facility] One 1.840.114 350.1.13.10 4.2.7.2.686 [id number] [id number] [facility] 2021-03-31 00:00:00 2021-03-31 00:00:[address] [facility] Office Building One 1.840.114 350.1.13.10 4.2.7.2.686 [id number] 044 [id number] [facility] 2021-03-12 00:00:00 2021-03-12 00:00:[address] [facility] Office Building One 1.2840.114 350.1.13.10 4.2.7.2.686 [id number] 044 [id number] [facility] 2021-03-04 00:00:00 2021-03-04 00:00:00 Refill Eduar [facility] Office Building One 1.840.114 350.1.13.10 4.2.7.2.686 [id number] 044 [id number] [facility] 2021-03-01 00:00:00 2021-03-01 00:00:[address] [facility] Office Building One 1.840.114 350.1.13.10 4.2.7.2.686 [id number] 044 [id number] [facility] 2021-02-26 00:00:00 2021-02-26 00:00:[address] [facility] Office Building One 1.0.114 350.1.13.10 4.2.7.2.686 [id number] 044 [id number] [facility] 2021-02-22 00:00:00 2021-02-22 00:00:[address] [facility] Office Building One 1.0.114 350.1.13.10 4.2.7.2.686 [id number] 044 [id number] [facility] 2021-02-19 00:00:00 2021-02-19 00:00:00 Refill Eduar [facility] Office Building One 1.0.114 350.1.13.10 4.2.7.2.686 [id number] 044 [id number] [facility] 2021-02-18 11:40:45 2021-02-18 23:59:00 Hospital Encounter Josse Le[facility] 1.0.114 350.1.13.10 4.2.7.2.686 [id number] [facility] 2021-02-18 00:00:00 2021-02-18 00:00:00 Outpatient R JOSSE LEYVA [facility] [id number] [facility] 2021-02-18 00:00:00 2021-02-18 00:00:00 Orders Only Doctor Unassigned, [place] [facility] 1..114 350.1.13.10 4.2.7.2.686 [id number] [facility] 2021-02-18 00:00:00 2021-02-18 00:00:00 Telephone Eduar [facility] Office Building One 1..114 350.1.13.10 4.2.7.2.686 [id number] [id number] [facility] 2021-02-08 08:30:00 2021-02-08 08:30:00 Outpatient R GIOVANY ANTOINE [facility] [id number] [facility] 2021-02-04 12:13:45 2021-02-04 12:31:27 Urgent Care Provider, [facility] FatemehMehreen sosathia [facility] Office Building One 1.84.114 350.1.13.10 4.2.7.2.686 [id number] [facility] 2021-02-04 12:20:00 2021-02-04 12:20:00 Outpatient R [facility] [id number] [facility] 2021-02-04 00:00:00 2021-02-04 00:00:00 Refill Eduar [facility] Office Building One 1..114 350.1.13.10 4.2.7.2.686 [id number] [id number] [facility] 2021-02-01 13:13:42 2021-02-01 15:01:09 Office Visit Marylou Gamino [facility] Building 1..114 350.1.13.10 4.2.7.2.686 [id number] [facility] 2021-02-01 13:30:00 2021-02-01 13:30:00 Outpatient GIOVANY GOTTI [facility] [id number] [facility] 2021-02-01 13:30:00 2021-02-01 13:30:00 Outpatient GIOVANY GOTTI [facility] [id number] [facility] 2021-01-24 00:00:00 2021-01-24 00:00:00 Refill Eduar [facility] Office Building One 1.84.114 350.1.13.10 4.2.7.2.686 [id number] 044 [id number] [facility] 2021-01-16 00:00:00 2021-01-16 00:00:00 Refprabhjot Eduar [facility] Office Building One 1.84.114 350.1.13.10 4.2.7.2.686 [id number] 044 [id number] [facility] 2021-01-10 00:00:00 2021-01-10 00:00:[address] [facility] Office Building One 1..114 350.1.13.10 4.2.7.2.686 [id number] 044 [id number] [facility] 2021-01-09 15:52:45 2021-01-09 16:12:45 Urgent Care Romi Dominguez Cynthia [facility] Office Building One 1..114 350.1.13.10 4.2.7.2.686 [id number] 044 [id number] [facility] 2021-01-09 16:00:00 2021-01-09 16:00:00 Outpatient JOSSE RUIZ [facility] [id number] [facility] 2021-01-07 00:00:00 2021-01-07 00:00:00 Viktoriya Eduar [facility] Office Building One 1.84.114 350.1.13.10 4.2.7.2.686 [id number] 044 [id number] [facility] 2021-01-07 00:00:00 2021-01-07 00:00:00 Viktoriya Eduar [facility] Office Building One 1.84.114 350.1.13.10 4.2.7.2.686 [id number] 044 [id number] [facility] 2021-01-07 00:00:00 2021-01-07 00:00:[address] [facility] Office Building One 1.2840.114 350.1.13.10 4.2.7.2.686 [id number] 044 [id number] [facility] 2021-01-07 00:00:00 2021-01-07 00:00:[address] [facility] Office Building One 1.2840.114 350.1.13.10 4.2.7.2.686 [id number] 044 [id number] [facility] 2021-01-03 12:15:00 2021-01-03 12:15:00 Outpatient R JEFFERSON WITT [facility] [id number] [facility] 2021-01-03 11:45:12 2021-01-03 12:00:12 Office Visit Eduar [facility] Office Building One 1.2840.114 350.1.13.10 4.2.7.2.686 [id number] 044 [id number] [facility] 2021-01-02 00:00:00 2021-01-02 00:00:00 Refill Eduar [facility] Office Building One 1.2840.114 350.1.13.10 4.2.7.2.686 [id number] 044 [id number] [facility] 2021-01-02 00:00:00 2021-01-02 00:00:[address] [facility] Office Building One 1.2840.114 350.1.13.10 4.2.7.2.686 [id number] 044 [id number] [facility] 2021-01-01 00:00:00 2021-01-01 00:00:[address] [facility] Office Building One 1.2840.114 350.1.13.10 4.2.7.2.686 [id number] [id number] [facility] 2021-01-01 00:00:00 2021-01-01 00:00:00 Orders Only Doctor Unassigned, [place] [facility] 1.2.840.114 350.1.13.10 4.2.7.2.686 [id number] [facility] 2020-12-24 00:00:00 2020-12-24 00:00:00 Nurse Triage Araceli Fitzgerald [facility] 1.2.840.114 350.1.13.10 4.2.7.2.686 [id number] [facility] 2020-12-07 00:00:00 2020-12-07 00:00[facility] 1.2.840.114 350.1.13.10 4.2.7.2.686 [id number] 044 [id number] [facility] 2020-12-05 00:00:00 2020-12-05 00:00:00 Telephone Eduar [facility] Office Building One 1.2.840.114 350.1.13.10 4.2.7.2.686 [id number] 044 [id number] [facility] 2020-12-03 00:00:00 2020-12-03 00:00:00 Refill Witt [facility] Office Building One 1.2.840.114 350.1.13.10 4.2.7.2.686 [id number] 044 [id number] [facility] 2020-12-03 00:00:00 2020-12-03 00:00[facility] 1.2840.114 350.1.13.10 4.2.7.2.686 [id number] 044 [id number] [facility] 2020-11-27 09:21:28 2020-11-27 23:59:00 Outpatient R BASSAM WITTONY [facility] [id number] [facility] 2020-11-27 09:21:28 2020-11-27 23:59:00 Hospital Encounter Jefferson [facility] 1.20.114 350.1.13.10 4.2.7.2.686 [id number] [facility] 2020-11-27 00:00:00 2020-11-27 00:00:00 Outpatient R BASSAM WITTONY [facility] [id number] [facility] 2020-11-27 00:00:00 2020-11-27 00:00:00 Orders Only Doctor Unassigned, [place] [facility] 1.2840.114 350.1.13.10 4.2.7.2.686 [id number] [facility] 2020-11-21 00:00:00 2020-11-21 00:00:00 Refill Eduar [facility] Office Building One 1.284.114 350.1.13.10 4.2.7.2.686 [id number] 044 [id number] [facility] 2020-11-14 00:00:00 2020-11-14 00:00:[address] [facility] Office Building One 1.840.114 350.1.13.10 4.2.7.2.686 [id number] 044 [id number] [facility] 2020-11-13 13:17:58 2020-11-13 23:59:00 Outpatient Hany WITTJEFFERSON [facility] [id number] [facility] 2020-11-13 13:17:58 2020-11-13 23:59:00 Hospital Encounter Eduar [facility] 1.2.840.114 350.1.13.10 4.2.7.2.686 [id number] [facility] 2020-11-13 13:17:10 2020-11-13 23:59:00 Hospital Encounter [facility] 1.2.840.114 350.1.13.10 4.2.7.2.686 [id number] [facility] 2020-11-13 00:00:00 2020-11-13 00:00:00 Outpatient R EDUAR [facility] [id number] [facility] 2020-11-13 00:00:00 2020-11-13 00:00:00 Orders Only Doctor Unassigned, [place] [facility] 1.2.840.114 350.1.13.10 4.2.7.2.686 [id number] [facility] 2020-11-06 00:00:00 2020-11-06 00:00:00 Refill Eduar [facility] Office Building One 1.2.840.114 350.1.13.10 4.2.7.2.686 [id number] 044 [id number] [facility] 2020-10-24 13:10:01 2020-10-24 13:25:01 Office Visit Eduar [facility] Office Building One 1.2.840.114 350.1.13.10 4.2.7.2.686 [id number] 044 [id number] [facility] 2020-10-24 13:15:00 2020-10-24 13:15:00 Outpatient R EDUAR [facility] [id number] [facility] 2020-10-24 00:00:00 2020-10-24 00:00:00 Orders Only Doctor Unassigned, [place] [facility] 1.2.840.114 350.1.13.10 4.2.7.2.686 [id number] [facility] 2020-10-09 00:00:00 2020-10-09 00:00:00 [facility] 1..114 350.1.13.10 4.2.7.2.686 [id number] 044 [id number] [facility] 2020-10-09 00:00:00 2020-10-09 00:00:00 Refill Eduar [facility] Office Building One 1..114 350.1.13.10 4.2.7.2.686 [id number] 044 [id number] [facility] 2020-10-03 12:26:09 2020-10-03 12:41:09 [facility] One 1..114 350.1.13.10 4.2.7.2.686 [id number] [facility] 2020-10-03 12:15:00 2020-10-03 12:15:00 Outpatient JEFFERSON PEREZ [facility] [id number] [facility] 2020-09-28 13:21:27 2020-09-28 14:42:31 Office Visit Giovany Antoine [facility] Building 1..114 350.1.13.10 4.2.7.2.686 [id number] [facility] 2020-09-28 13:30:00 2020-09-28 13:30:00 Outpatient GIOVANY GOTTI [facility] [id number] [facility] 2020-09-24 00:00:00 2020-09-24 00:00:00 Refill Eduar [facility] Office Building One 1..114 350.1.13.10 4.2.7.2.686 [id number] [facility] 2020-09-20 11:53:00 2020-09-20 12:28:00 Emergency X JAYASHREE MULLINS [facility] [id number] [facility] 2020-09-20 11:53:00 2020-09-20 12:28:00 Emergency Jayashree Mullins [facility] 1.2.840.114 350.1.13.10 4.2.7.2.686 [id number] [facility] 2020-09-19 00:00:00 2020-09-19 00:00:00 Doniprabjhot Eduar [facility] Office Building One 1.84.114 350.1.13.10 4.2.7.2.686 [id number] 044 [id number] [facility] 2020-09-14 00:00:00 2020-09-14 00:00:00 Doniprabhjot Eduar [facility] Office Building One 1.84.114 350.1.13.10 4.2.7.2.686 [id number] 044 [id number] [facility] 2020-09-13 00:00:00 2020-09-13 00:00:00 Viktoriya Witt [facility] Office Building One 1.84.114 350.1.13.10 4.2.7.2.686 [id number] [facility] 2020-09-06 13:30:00 2020-09-06 13:40:37 Outpatient JORGE LUIS ROBERTS [facility] [id number] [facility] 2020-09-06 13:30:00 2020-09-06 13:30:00 Outpatient JORGE LUIS ROBERTS [facility] [id number] [facility] 2020-08-31 10:35:13 2020-08-31 11:37:50 Office Visit Bisi Cardoso [facility] Building 1.2.840.114 350.1.13.10 4.2.7.2.686 [id number] [facility] 2020-08-31 11:00:00 2020-08-31 11:00:00 Outpatient R BISI CARDOSO [facility] [id number] [facility] 2020-08-29 00:00:00 2020-08-29 00:00:00 Telephone Elina Giovany Claudia [facility] Building 1.2.840.114 350.1.13.10 4.2.7.2.686 [id number] [facility] 2020-08-27 00:00:00 2020-08-27 00:00:[address] [facility] Office Building One 1.2.840.114 350.1.13.10 4.2.7.2.686 [id number] 044 [id number] [facility] 2020-08-21 00:00:00 2020-08-21 00:00:00 Nurse Triage Guy Mcclellan [facility] 1.2.840.114 350.1.13.10 4.2.7.2.686 [id number] [facility] 2020-08-17 07:37:00 2020-08-17 11:47:00 Hospital Encounter Bisi Cardoso [facility] 1.2.840.114 350.1.13.10 4.2.7.2.686 [id number] [facility] 2020-08-16 14:00:33 2020-08-16 14:15:33 Laboratory Only Only, Adc Test Bisi Cardoso [facility] 1.2.840.114 350.1.13.10 4.2.7.2.686 [id number] [facility] 2020-08-16 14:00:00 2020-08-16 14:00:00 Outpatient Hany BISI CARDOSO [facility] [id number] [facility] 2020-08-16 00:00:00 2020-08-16 00:00:00 Orders Only Doctor Unassigned, [place] [facility] 1.114 350.1.13.10 4.2.7.2.686 [id number] [facility] 2020-08-14 00:00:00 2020-08-14 00:00:00 Telephone Giovany Antoine [facility] 1.114 350.1.13.10 4.2.7.2.686 [id number] [facility] 2020-08-09 15:20:00 2020-08-09 15:20:00 Outpatient JORGE LUIS [facility] [id number] [facility] 2020-08-09 15:20:00 2020-08-09 15:09:53 Outpatient JORGE LUIS ROBERTS [facility] [id number] [facility] 2020-08-08 00:00:00 2020-08-08 00:00:[address] [facility] [place] [facility] One ..114 350.1.13.10 4.2.7.2.686 [id number] [facility] 2020-08-06 00:00:00 2020-08-06 00:00:00 Refill Eduar [facility] Office Building One ..114 350.1.13.10 4.2.7.2.686 [id number] [facility] 2020-08-06 00:00:00 2020-08-06 00:00:00 Telephone WittJefferson horvath [facility] Building 1.2840.114 350.1.13.10 4.2.7.2.686 [id number] [facility] 2020-07-30 10:00:24 2020-07-30 10:15:24 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 Visit 2, [facility] Lab [facility] Building 1.2840.114 350.1.13.10 4.2.7.2.686 [id number] [facility] 2020-07-30 10:15:00 2020-07-30 10:15:00 Outpatient R BASSAM WITTONY [facility] [id number] [facility] 2020-07-30 08:18:05 2020-07-30 09:18:05 Laboratory Only Pc, [facility] Echo Room 1 - [facility] Building 1.2840.114 350.1.13.10 4.2.7.2.686 [id number] [facility] 2020-07-30 08:17:07 2020-07-30 08:47:07 Nurse Visit Visit, St. [facility] Nurse Cliff [facility] Building 1.2840.114 350.1.13.10 4.2.7.2.686 [id number] [id number] [facility] 2020-07-30 08:30:00 2020-07-30 08:30:00 Outpatient R [facility] [id number] [facility] 2020-07-30 00:00:00 2020-07-30 00:00:[address] [facility] [place] [facility] Building One 1.284.114 350.1.13.10 4.2.7.2.686 [id number] 044 [id number] [facility] 2020-07-24 00:00:00 2020-07-24 00:00:[address] [facility] [place] [facility] Building One 1.840.114 350.1.13.10 4.2.7.2.686 [id number] 044 [id number] [facility] 2020-07-23 00:00:00 2020-07-23 00:00:[address] [facility] [place] [facility] Building One 1.84.114 350.1.13.10 4.2.7.2.686 [id number] 044 [id number] [facility] 2020-07-20 09:45:00 2020-07-20 10:34:29 Outpatient R BISI CARDOSO [facility] [id number] [facility] 2020-07-20 09:34:36 2020-07-20 10:34:29 Office Visit Bisi Cardoso [facility] 1.840.114 350.1.13.10 4.2.7.2.686 [id number] [facility] 2020-07-20 09:45:00 2020-07-20 09:45:00 Outpatient BISI SHIRLEY [facility] [id number] [facility] 2020-07-20 00:00:00 2020-07-20 00:00:00 Prep For Surgery Sandy Grissom [facility] 1..840.114 350.1.13.10 4.2.7.2.686 [id number] [facility] 2020-07-19 00:00:00 2020-07-19 00:00:00 Telephone Sandy Grissom [facility] 1..840.114 350.1.13.10 4.2.7.2.686 [id number] [facility] 2020-07-11 14:15:00 2020-07-11 15:24:26 Outpatient R SANDY GRISSOM [facility] [id number] [facility] 2020-07-11 14:07:33 2020-07-11 15:24:26 Office Visit Sandy Grissom [facility] Building 1.0.114 350.1.13.10 4.2.7.2.686 [id number] [facility] 2020-07-11 12:22:19 2020-07-11 12:42:19 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 Visit Lab, [facility] Fam Pob Ana Witt [facility] [place] [facility] Building One 1..114 350.1.13.10 4.2.7.2.686 [id number] 044 [id number] [facility] 2020-07-11 11:51:24 2020-07-11 12:15:39 Office Visit [address] [facility] [place] [facility] Building One 1..114 350.1.13.10 4.2.7.2.686 [id number] 044 [id number] [facility] 2020-07-11 12:00:00 2020-07-11 12:00:00 Outpatient R WITT JEFFERSON [facility] [id number] [facility] 2020-07-04 00:00:00 2020-07-04 00:00:[address] [facility] [place] [facility] Building One 1..114 350.1.13.10 4.2.7.2.686 [id number] 044 [id number] [facility] 2020-06-27 13:09:36 2020-06-27 23:59:00 Hospital Encounter Rosette Contre[facility] 1..114 350.1.13.10 4.2.7.2.686 [id number] [facility] 2020-06-27 11:31:39 2020-06-27 11:51:39 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 Visit Lab, [facility] Fam Pob Rosette Schmid [facility] [place] [facility] Building One 1.114 350.1.13.10 4.2.7.2.686 [id number] 044 [id number] [facility] 2020-06-27 11:40:00 2020-06-27 11:43:32 Outpatient R ROSETTE CONTRERAS [facility] [id number] [facility] 2020-06-27 10:46:55 2020-06-27 11:43:03 Urgent Care Provider, [facility] One 1.114 350.1.13.10 4.2.7.2.686 [id number] 044 [id number] [facility] 2020-06-27 11:00:00 2020-06-27 11:00:00 Outpatient R MEHREEN LEYVATHIA [facility] [id number] [facility] 2020-06-26 00:00:00 2020-06-26 00:00:00 Telephone Eduar [facility] Office Building One 1.114 350.1.13.10 4.2.7.2.686 [id number] 044 [id number] [facility] 2020-06-22 00:00:00 2020-06-22 00:00:00 Refill Eduar [facility] Office Building One 1.114 350.1.13.10 4.2.7.2.686 [id number] 044 [id number] [facility] 2020-06-21 00:00:00 2020-06-21 00:00:00 Telephone Eduar [facility] Office Building One 1.114 350.1.13.10 4.2.7.2.686 [id number] 044 [id number] [facility] 2020-06-19 00:00:00 2020-06-19 00:00:00 Refill Eduar [facility] Office Building One 1.2840.114 350.1.13.10 4.2.7.2.686 [id number] 044 [id number] [facility] 2020-06-19 00:00:00 2020-06-19 00:00:00 Refill Eduar [facility] Office Building One 1.2840.114 350.1.13.10 4.2.7.2.686 [id number] 044 [id number] [facility] 2020-06-13 00:00:00 2020-06-13 00:00:00 Refill Eduar [facility] Office Building One 1.840.114 350.1.13.10 4.2.7.2.686 [id number] 044 [id number] [facility] 2020-06-04 00:00:00 2020-06-04 00:00:00 Telephone Giovany Antoine [facility] nal Building 1.840.114 350.1.13.10 4.2.7.2.686 [id number] [facility] 2020-06-01 00:00:00 2020-06-01 00:00:00 Telephone Eduar [facility] Office Building One 1.840.114 350.1.13.10 4.2.7.2.686 [id number] 044 [id number] [facility] 2020-05-29 09:00:00 2020-05-29 09:00:00 Outpatient R JEFFERSON WITT [facility] [id number] [facility] 2020-05-29 06:53:27 2020-05-29 07:08:27 Telemedici ne Visit Eduar [facility] Office Building One 1.840.114 350.1.13.10 4.2.7.2.686 [id number] 044 [id number] [facility] 2020-05-29 00:00:00 2020-05-29 00:00:00 Refill AntoineGiovany [facility] Building 1.2.840.114 350.1.13.10 4.2.7.2.686 [id number] 220 [id number] [facility] 2020-05-21 00:00:00 2020-05-21 00:00:[address] [facility] [place] [facility] Building One 1.2.840.114 350.1.13.10 4.2.7.2.686 [id number] 044 [id number] [facility] 2020-05-16 00:00:00 2020-05-16 00:00:[address] [facility] [place] [facility] Building One 1.2.840.114 350.1.13.10 4.2.7.2.686 [id number] 044 [id number] [facility] 2020-05-14 00:00:00 2020-05-14 00:00:00 Refill Eduar [facility] Office Building One 1.2.840.114 350.1.13.10 4.2.7.2.686 [id number] 044 [id number] [facility] 2020-05-11 00:00:00 2020-05-11 00:00:[address] [facility] [place] [facility] Building One 1.2.840.114 350.1.13.10 4.2.7.2.686 [id number] 044 [id number] [facility] 2020-05-11 00:00:00 2020-05-11 00:00:00 Telephone Giovany Antoine [facility] Building 1.2.840.114 350.1.13.10 4.2.7.2.686 [id number] [facility] 2020-05-08 08:45:00 2020-05-08 08:45:00 Outpatient R JEFFERSON WITT [facility] [id number] [facility] 2020-05-08 07:57:55 2020-05-08 08:12:55 Telemedici ne Visit [facility] [place] [facility] Building One 1..114 350.1.13.10 4.2.7.2.686 [id number] 044 [id number] [facility] 2020-05-08 00:00:00 2020-05-08 00:00:[address] [facility] [place] [facility] Building One 1.0.114 350.1.13.10 4.2.7.2.686 [id number] 044 [id number] [facility] 2020-05-08 00:00:00 2020-05-08 00:00:00 Telephone Jefferson Witt [facility] nal Building 1..114 350.1.13.10 4.2.7.2.686 [id number] 044 [id number] [facility] 2020-05-02 00:00:00 2020-05-02 00:00:[address] [facility] [place] [facility] Building One 1.2.114 350.1.13.10 4.2.7.2.686 [id number] 044 [id number] [facility] 2020-04-24 09:15:00 2020-04-24 09:15:00 Outpatient JEFFERSON PEREZ [facility] [id number] [facility] 2020-04-24 06:51:14 2020-04-24 07:06:14 Telemedici ne Visit [facility] [place] [facility] Building One 1..114 350.1.13.10 4.2.7.2.686 [id number] 044 [id number] [facility] 2020-04-18 00:00:00 2020-04-18 00:00:00 Refill Eduar [facility] Office Building One 1.114 350.1.13.10 4.2.7.2.686 [id number] 044 [id number] [facility] 2020-04-13 00:00:00 2020-04-13 00:00:00 Refill Elina Giovany [facility] 1..114 350.1.13.10 4.2.7.2.686 [id number] [facility] 2020-04-11 13:00:00 2020-04-11 13:00:00 Outpatient R JEFFERSON WITT [facility] [id number] [facility] 2020-04-11 12:43:12 2020-04-11 12:58:12 Office Visit Eduar [facility] [place] [facility] Building One 1.114 350.1.13.10 4.2.7.2.686 [id number] 044 [id number] [facility] 2020-04-08 00:00:00 2020-04-08 00:00:[address] [facility] [place] [facility] Building One 1..114 350.1.13.10 4.2.7.2.686 [id number] 044 [id number] [facility] 2020-04-04 13:45:29 2020-04-04 14:43:26 Office Visit Dilan Love [facility] 1..114 350.1.13.10 4.2.7.2.686 [id number] [facility] 2020-04-04 14:00:00 2020-04-04 14:00:00 Outpatient R DILAN LOVE [facility] [id number] [facility] 2020-04-02 00:00:00 2020-04-02 00:00:00 Refill Eduar [facility] Office Building One 1.2.840.114 350.1.13.10 4.2.7.2.686 [id number] 044 [id number] [facility] 2020-04-01 00:00:00 2020-04-01 00:00:00 Nurse Triage Alana Baptiste [facility] 1.2.840.114 350.1.13.10 4.2.7.2.686 [id number] [facility] 2020-04-01 00:00:00 2020-04-01 00:00:00 [facility] 1.2.840.114 350.1.13.10 4.2.7.2.686 [id number] [facility] 2020-03-28 14:15:00 2020-03-28 14:15:00 Outpatient R DILAN LOVE [facility] [id number] [facility] 2020-03-24 00:00:00 2020-03-24 00:00:00 [facility] One 1.2840.114 350.1.13.10 4.2.7.2.686 [id number] 044 [id number] [facility] 2020-03-23 13:17:14 2020-03-23 14:30:58 Office Visit Giovany Antoine [facility] Building 1.2.840.114 350.1.13.10 4.2.7.2.686 [id number] [facility] 2020-03-23 13:30:00 2020-03-23 13:30:00 Outpatient R GIOVANY ANTOINE [facility] [id number] [facility] 2020-03-23 00:00:00 2020-03-23 00:00:00 Orders Only Doctor Unassigned, [place] [facility] 1.2.840.114 350.1.13.10 4.2.7.2.686 [id number] [facility] 2020-03-20 14:45:00 2020-03-20 14:45:00 Outpatient R NOEMI WAITE [facility] [id number] [facility] 2020-03-19 00:00:00 2020-03-19 00:00:[address] [facility] 1.2840.114 350.1.13.10 4.2.7.2.686 [id number] [facility] 2020-03-19 00:00:00 2020-03-19 00:00:00 Refprabhjot Witt [facility] Office Building One 1.20.114 350.1.13.10 4.2.7.2.686 [id number] 044 [id number] [facility] 2020-03-16 00:00:00 2020-03-16 00:00:00 RefGiovany Waddell [facility] nal Building 1.20.114 350.1.13.10 4.2.7.2.686 [id number] 220 [id number] [facility] 2020-03-15 00:00:00 2020-03-15 00:00:[address] [facility] [place] [facility] Building One 1.20.114 350.1.13.10 4.2.7.2.686 [id number] 044 [id number] [facility] 2020-03-13 10:25:12 2020-03-13 23:59:00 Outpatient R JOSSE LEYVA [facility] [id number] [facility] 2020-03-13 10:25:12 2020-03-13 23:59:00 Hospital Encounter Josse Leyva [facility] 1.2840.114 350.1.13.10 4.2.7.2.686 [id number] [facility] 2020-03-13 09:37:13 2020-03-13 09:57:13 Urgent Care Provider, [facility] Josse Leyva [facility] [place] [facility] Building One 1.2.114 350.1.13.10 4.2.7.2.686 [id number] 044 [id number] [facility] 2020-03-13 09:40:00 2020-03-13 09:40:00 Outpatient R [facility] [id number] [facility] 2020-03-09 00:00:00 2020-03-09 00:00:00 Telephone Witt Jefferson [facility] Building 1.2.114 350.1.13.10 4.2.7.2.686 [id number] 044 [id number] [facility] 2020-03-07 00:00:00 2020-03-07 00:00:00 Telephone Giovany Antoine Claudia [facility] Building 1.2.114 350.1.13.10 4.2.7.2.686 [id number] 220 [id number] [facility] 2020-03-03 00:00:00 2020-03-03 00:00:[address] [facility] [place] [facility] Building One 1..114 350.1.13.10 4.2.7.2.686 [id number] 044 [id number] [facility] 2020-03-02 00:00:00 2020-03-02 00:00:00 Telephone Giovany Antoine [facility] Building 1.2.114 350.1.13.10 4.2.7.2.686 [id number] 220 [id number] [facility] 2020-02-29 00:00:00 2020-02-29 00:00:00 Refill Eduar [facility] Office Building One 1.2.840.114 350.1.13.10 4.2.7.2.686 [id number] 044 [id number] [facility] 2020-02-28 00:00:00 2020-02-28 00:00:00 [facility] Building One 1.2840.114 350.1.13.10 4.2.7.2.686 [id number] 044 [id number] [facility] 2020-02-28 00:00:00 2020-02-28 00:00:00 Telephone Giovany Antoine [facility] Building 1.2.840.114 350.1.13.10 4.2.7.2.686 [id number] 220 [id number] [facility] 2020-02-27 00:00:00 2020-02-27 00:00:00 Viktoriya Witt [facility] Office Building One 1.2840.114 350.1.13.10 4.2.7.2.686 [id number] 044 [id number] [facility] 2020-02-23 00:00:00 2020-02-23 00:00:00 Telephone Giovany Antoine [facility] Building 1.2.840.114 350.1.13.10 4.2.7.2.686 [id number] 220 [id number] [facility] 2020-02-21 00:00:00 2020-02-21 00:00:00 Telephone Giovany Antoine [facility] Building 1.2.840.114 350.1.13.10 4.2.7.2.686 [id number] 220 [id number] [facility] 2020-02-20 00:00:00 2020-02-20 00:00:00 Viktoriya Witt [facility] Office Building One 1.2840.114 350.1.13.10 4.2.7.2.686 [id number] 044 [id number] [facility] 2020-02-14 00:00:00 2020-02-14 00:00:00 Telephone Jefferson Witt [facility] Building 1.2.840.114 350.1.13.10 4.2.7.2.686 [id number] 044 [id number] [facility] 2020-02-10 00:00:00 2020-02-10 00:00:[address] [facility] [place] [facility] Building One 1.840.114 350.1.13.10 4.2.7.2.686 [id number] 044 [id number] [facility] 2020-02-08 00:00:00 2020-02-08 00:00:00 RefJefferson Moya [facility] Building 1.2.840.114 350.1.13.10 4.2.7.2.686 [id number] 044 [id number] [facility] 2020-02-02 00:00:00 2020-02-02 00:00:[address] [facility] [place] [facility] Building One 1.2840.114 350.1.13.10 4.2.7.2.686 [id number] 044 [id number] [facility] 2020-02-02 00:00:00 2020-02-02 00:00:00 Telephone Giovany Antoine Claudia [facility] Building 1.2.840.114 350.1.13.10 4.2.7.2.686 [id number] 220 [id number] [facility] 2020-01-31 00:00:00 2020-01-31 00:00:[address] [facility] [place] [facility] Building One 1.840.114 350.1.13.10 4.2.7.2.686 [id number] 044 [id number] [facility] 2020-01-26 00:00:00 2020-01-26 00:00:00 Refill Giovany Antoine [facility] Building 1.2840.114 350.1.13.10 4.2.7.2.686 [id number] 220 [id number] [facility] 2020-01-24 00:00:00 2020-01-24 00:00:00 [facility] Building One 1..114 350.1.13.10 4.2.7.2.686 [id number] 044 [id number] [facility] 2020-01-23 00:00:00 2020-01-23 00:00:00 Telephone Giovany Antoine [facility] Building 1.284.114 350.1.13.10 4.2.7.2.686 [id number] 220 [id number] [facility] 2020-01-18 00:00:00 2020-01-18 00:00:00 Refill Eduar [facility] Office Building One 1.84.114 350.1.13.10 4.2.7.2.686 [id number] 044 [id number] [facility] 2020-01-09 11:54:37 2020-01-09 12:09:37 Office Visit Jefferson Witt [facility] Building 1.284.114 350.1.13.10 4.2.7.2.686 [id number] 044 [id number] [facility] 2020-01-09 12:00:00 2020-01-09 12:00:00 Outpatient R JEFFERSON WITT [facility] [id number] [facility] 2019-12-30 00:00:00 2019-12-30 00:00:[address] [facility] [place] [facility] Building One 1..114 350.1.13.10 4.2.7.2.686 [id number] 044 [id number] [facility] 2019-12-29 00:00:00 2019-12-29 00:00:[address] [facility] [place] [facility] Building One 1.2840.114 350.1.13.10 4.2.7.2.686 [id number] 044 [id number] [facility] 2019-12-27 00:00:00 2019-12-27 00:00:00 Telephone [facility]al Building 1.2840.114 350.1.13.10 4.2.7.2.686 [id number] 220 [id number] [facility] 2019-12-27 00:00:00 2019-12-27 00:00:[address] [facility] [place] [facility] Building One 1.840.114 350.1.13.10 4.2.7.2.686 [id number] 044 [id number] [facility] 2019-12-20 00:00:00 2019-12-20 00:00:00 Refill Eduar [facility] Office Building One 1.840.114 350.1.13.10 4.2.7.2.686 [id number] 044 [id number] [facility] 2019-12-15 10:46:49 2019-12-19 09:53:57 Urgent Care Provider, [facility] Building One 1.840.114 350.1.13.10 4.2.7.2.686 [id number] 044 [id number] [facility] 2019-12-19 00:00:00 2019-12-19 00:00:[address] [facility] [place] [facility] Building One 1.0.114 350.1.13.10 4.2.7.2.686 [id number] 044 [id number] [facility] 2019-12-16 00:00:00 2019-12-16 00:00:00 Viktoriya Witt [facility] Office Building One 1.2840.114 350.1.13.10 4.2.7.2.686 [id number] 044 [id number] [facility] 2019-12-16 00:00:00 2019-12-16 00:00:00 Refprabhjot Witt [facility] Office Building One 1.840.114 350.1.13.10 4.2.7.2.686 [id number] 044 [id number] [facility] 2019-12-15 11:00:00 2019-12-15 11:00:00 Outpatient R [facility] [id number] [facility] 2019-12-13 09:40:00 2019-12-13 09:40:00 Outpatient R [facility] [id number] [facility] 2019-12-08 00:00:00 2019-12-08 00:00:00 Viktoriya Witt [facility] Office Building One 1.2840.114 350.1.13.10 4.2.7.2.686 [id number] 044 [id number] [facility] 2019-12-01 00:00:00 2019-12-01 00:00:00 Viktoriya Witt [facility] Office Building One 1.2840.114 350.1.13.10 4.2.7.2.686 [id number] 044 [id number] [facility] 2019-11-30 00:00:00 2019-11-30 00:00:00 Viktoriya Witt [facility] nal Building 1.2.840.114 350.1.13.10 4.2.7.2.686 [id number] 044 [id number] [facility] 2019-11-29 00:00:00 2019-11-29 00:00:00 Telephone Pob1, Acute Care [facility] [place] [facility] Building One 1.840.114 350.1.13.10 4.2.7.2.686 [id number] 044 [id number] [facility] 2019-11-28 00:00:00 2019-11-28 00:00:[address] [facility] [place] [facility] Building One 1.840.114 350.1.13.10 4.2.7.2.686 [id number] 044 [id number] [facility] 2019-11-25 08:03:12 2019-11-25 08:18:12 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 Visit 2, Adc Lab Eduar Jefferson [facility] Building 1.840.114 350.1.13.10 4.2.7.2.686 [id number] [facility] 2019-11-25 08:00:00 2019-11-25 08:00:00 Outpatient R JEFFERSON WITT [facility] [id number] [facility] 2019-11-25 00:00:00 2019-11-25 00:00:[address] [facility] [place] [facility] Building One 1..114 350.1.13.10 4.2.7.2.686 [id number] 044 [id number] [facility] 2019-11-24 00:00:00 2019-11-24 00:00:00 Telephone Keila Delcid [facility] Building 1.0.114 350.1.13.10 4.2.7.2.686 [id number] 044 [id number] [facility] 2019-11-24 00:00:00 2019-11-24 00:00:[address] [facility] [place] [facility] Building One 1..114 350.1.13.10 4.2.7.2.686 [id number] 044 [id number] [facility] 2019-11-23 15:29:34 2019-11-23 23:59:00 Outpatient R KEILA DELCID [facility] [id number] [facility] 2019-11-23 15:15:00 2019-11-23 23:59:00 Hospital Encounter Keila Delcid [facility] 1.840.114 350.1.13.10 4.2.7.2.686 [id number] [id number] [facility] 2019-11-23 14:33:27 2019-11-23 14:53:27 Urgent Care Pob1[facility] One 1.114 350.1.13.10 4.2.7.2.686 [id number] 044 [id number] [facility] 2019-11-23 14:40:00 2019-11-23 14:40:00 Outpatient R [facility] [id number] [facility] 2019-11-23 00:00:00 2019-11-23 00:00:[address] [facility] [place] [facility] Building One 1.114 350.1.13.10 4.2.7.2.686 [id number] 044 [id number] [facility] 2019-11-23 00:00:00 2019-11-23 00:00:[address] [facility] Office Building One ..114 350.1.13.10 4.2.7.2.686 [id number] 044 [id number] [facility] 2019-11-16 00:00:00 2019-11-16 00:00:00 Telephone Giovany Antoine [facility] nal Building 1..114 350.1.13.10 4.2.7.2.686 [id number] 220 [id number] [facility] 2019-11-15 00:00:00 2019-11-15 00:00:00 [facility] Building One 1..114 350.1.13.10 4.2.7.2.686 [id number] 044 [id number] [facility] 2019-11-10 08:41:49 2019-11-10 08:56:49 Office Visit Jefferson Witt [facility] nal Building 1..114 350.1.13.10 4.2.7.2.686 [id number] 044 [id number] [facility] 2019-11-10 08:45:00 2019-11-10 08:45:00 [id number] [facility] 2019-11-07 00:00:00 2019-11-07 00:00:00 Telephone Eduar [facility] Office Building One 1..114 350.1.13.10 4.2.7.2.686 [id number] 044 [id number] [facility] 2019-11-02 00:00:00 2019-11-02 00:00:00 Refill Eduar [facility] Office Building One 1..114 350.1.13.10 4.2.7.2.686 [id number] 044 [id number] [facility] 2019-10-26 00:00:00 2019-10-26 00:00:[address] [facility] Office Building One 1..114 350.1.13.10 4.2.7.2.686 [id number] 044 [id number] [facility] 2019-10-24 00:00:00 2019-10-24 00:00:00 Telephone Eduar [facility] Office Building One 1.2840.114 350.1.13.10 4.2.7.2.686 [id number] 044 [id number] [facility] 2019-10-21 00:00:00 2019-10-21 00:00:00 Refill [facility] 1.2840.114 350.1.13.10 4.2.7.2.686 [id number] 220 [id number] [facility] 2019-10-18 08:20:00 2019-10-18 08:20:00 Outpatient R [facility] [id number] [facility] 2019-10-14 00:00:00 2019-10-14 00:00:00 Telephone Giovany Antoine [facility] nal Building 1.2840.114 350.1.13.10 4.2.7.2.686 [id number] [facility] 2019-10-14 00:00:00 2019-10-14 00:00:00 Telephone Giovany Antoine [facility] nal Building 1.2840.114 350.1.13.10 4.2.7.2.686 [id number] [facility] 2019-10-13 00:00:00 2019-10-13 00:00:[address] [facility] [place] [facility] Building One 1.2840.114 350.1.13.10 4.2.7.2.686 [id number] [id number] [facility] 2019-10-12 00:00:00 2019-10-12 00:00:00 Refill Edu[facility] Office [facility] One 1.2840.114 350.1.13.10 4.2.7.2.686 [id number] [id number] [facility] 2019-10-11 00:00:00 2019-10-11 00:00:[address] [facility] [place] [facility] 1.2.840.114 350.1.13.10 4.2.7.2.686 [id number] [id number] [facility] 2019-10-11 00:00:00 2019-10-11 00:00:00 Orders Only Doctor Unassigned, [place] [facility] 1.2.840.114 350.1.13.10 4.2.7.2.686 [id number] [id number] [facility] 2019-10-04 00:00:00 2019-10-04 00:00:00 Refill Eduar [facility] Office Building One 1.2840.114 350.1.13.10 4.2.7.2.686 [id number] 044 [id number] [facility] 2019-09-29 00:00:00 2019-09-29 00:00:00 Telephone Eduar [facility] One 1.2.840.114 350.1.13.10 4.2.7.2.686 [id number] 044 [id number] [facility] 2019-09-29 00:00:00 2019-09-29 00:00:00 Telephone Eduar [facility] One 1.2840.114 350.1.13.10 4.2.7.2.686 [id number] 044 [id number] [facility] 2019-09-28 00:00:00 2019-09-28 00:00:00 Refill Eduar [facility] One 1.2.840.114 350.1.13.10 4.2.7.2.686 [id number] 044 [id number] [facility] 2019-09-28 00:00:00 2019-09-28 00:00:00 Telephone Eduar [facility] One 1.2.840.114 350.1.13.10 4.2.7.2.686 [id number] 044 [id number] [facility] 2019-09-27 00:00:00 2019-09-27 00:00:[address] [facility] Office Building One 1..114 350.1.13.10 4.2.7.2.686 [id number] 044 [id number] [facility] 2019-09-26 14:15:35 2019-09-26 14:45:35 Office Visit Eduar [facility] One 1..114 350.1.13.10 4.2.7.2.686 [id number] 044 [id number] [facility] 2019-09-26 14:30:00 2019-09-26 14:30:00 Outpatient R JEFFERSON WITT [facility] [id number] [facility] 2019-09-26 00:00:00 2019-09-26 00:00:00 Orders Only Doctor Unassigned, [place] [facility] 1..114 350.1.13.10 4.2.7.2.686 [id number] 009 [id number] [facility] 2019-09-23 13:30:00 2019-09-23 14:11:38 Outpatient R GIOVANY ANTOINE [facility] [id number] [facility] 2019-09-23 13:25:38 2019-09-23 14:11:38 Office Visit Giovany Antoine [facility] Building 1..114 350.1.13.10 4.2.7.2.686 [id number] [facility] 2019-09-23 00:00:00 2019-09-23 00:00:00 Nurse Triage Ciara Alvarez [facility] 1..114 350.1.13.10 4.2.7.2.686 [id number] 019 [id number] [facility] 2019-09-16 00:00:00 2019-09-16 00:00:[address] [facility] Office [facility] One 1.840.114 350.1.13.10 4.2.7.2.686 [id number] 044 [id number] [facility] 2019-09-13 00:00:00 2019-09-13 00:00:[address] [facility] Office Building One 1.840.114 350.1.13.10 4.2.7.2.686 [id number] 044 [id number] [facility] 2019-09-13 00:00:00 2019-09-13 00:00:00 Orders Only Doctor Unassigned, [place] [facility] 1.840.114 350.1.13.10 4.2.7.2.686 [id number] 009 [id number] [facility] 2019-09-12 00:00:00 2019-09-12 00:00:00 Refill Eduar [facility] One 1.840.114 350.1.13.10 4.2.7.2.686 [id number] 044 [id number] [facility] 2019-09-08 00:00:00 2019-09-08 00:00:00 Refprabhjot Witt [facility] Building One 1.840.114 350.1.13.10 4.2.7.2.686 [id number] 044 [id number] [facility] 2019-09-05 00:00:00 2019-09-05 00:00:00 Viktoriya Witt [facility] Building One 1.840.114 350.1.13.10 4.2.7.2.686 [id number] 044 [id number] [facility] 2019-08-25 00:00:00 2019-08-25 00:00:[address] [facility] Office Building One 1.2.840.114 350.1.13.10 4.2.7.2.686 [id number] 044 [id number] [facility] 2019-08-25 00:00:00 2019-08-25 00:00:[address] [facility] One 1.2.840.114 350.1.13.10 4.2.7.2.686 [id number] 044 [id number] [facility] 2019-08-23 00:00:00 2019-08-23 00:00:00 Refill Giovany Antoine [facility] Building 1.2.840.114 350.1.13.10 4.2.7.2.686 [id number] 220 [id number] [facility] 2019-08-17 00:00:00 2019-08-17 00:00:00 Telephone Giovany Antoine [facility] Building 1.2.840.114 350.1.13.10 4.2.7.2.686 [id number] 220 [id number] [facility] 2019-08-15 00:00:00 2019-08-15 00:00:[address] [facility] One 1.2.840.114 350.1.13.10 4.2.7.2.686 [id number] 044 [id number] [facility] 2019-08-13 00:00:00 2019-08-13 00:00:[address] [facility] Office Building One 1.2.840.114 350.1.13.10 4.2.7.2.686 [id number] 044 [id number] [facility] 2019-04-15 00:00:00 2019-04-15 00:00:[address] [facility] Building One 1.114 350.1.13.10 4.2.7.2.686 [id number] 044 [id number] [facility] 2019-04-13 13:52:51 2019-04-13 14:14:54 Office Visit Jefferson Witt [facility] Office Building One 1.114 350.1.13.10 4.2.7.2.686 [id number] 044 [id number] [facility] 2019-04-13 00:00:00 2019-04-13 00:00:00 Orders Only Doctor Unassigned, [place] [facility] 1.114 350.1.13.10 4.2.7.2.686 [id number] 009 [id number] [facility] 2019-04-07 00:00:00 2019-04-07 00:00:00 Refill Eduar [facility] One 1.114 350.1.13.10 4.2.7.2.686 [id number] 044 [id number] [facility] 2019-04-05 00:00:00 2019-04-05 00:00:00 Telephone Giovany Antoine [facility] Building 1.114 350.1.13.10 4.2.7.2.686 [id number] 220 [id number] [facility] 2019-04-05 00:00:00 2019-04-05 00:00:[address] [facility] Office Building One 1.114 350.1.13.10 4.2.7.2.686 [id number] 044 [id number] [facility] 2019-03-31 00:00:00 2019-03-31 00:00:[address] [facility] Office Building One 1.2.840.114 350.1.13.10 4.2.7.2.686 [id number] 044 [id number] [facility] 2019-03-29 00:00:00 2019-03-29 00:00:00 Telephone Giovany Antoine [facility] Building 1.2.840.114 350.1.13.10 4.2.7.2.686 [id number] 220 [id number] [facility] 2019-03-29 00:00:00 2019-03-29 00:00:00 Orders Only Doctor Unassigned, [place] [facility] 1.2.840.114 350.1.13.10 4.2.7.2.686 [id number] 009 [id number] [facility] 2019-03-21 00:00:00 2019-03-21 00:00:00 Telephone Giovany Antoine [facility] Building 1.2.840.114 350.1.13.10 4.2.7.2.686 [id number] 220 [id number] [facility] 2019-03-17 00:00:00 2019-03-17 00:00:00 Refprabhjot Witt [facility] Office Building One 1.2.840.114 350.1.13.10 4.2.7.2.686 [id number] 044 [id number] [facility] 2019-03-17 00:00:00 2019-03-17 00:00:00 Refill Eduar [facility] Office Building One 1.2.840.114 350.1.13.10 4.2.7.2.686 [id number] 044 [id number] [facility] 2019-03-09 00:00:00 2019-03-09 00:00:00 Viktoriya Witt [facility] Office Building One 1.2840.114 350.1.13.10 4.2.7.2.686 [id number] 044 [id number] [facility] 2019-03-03 00:00:00 2019-03-03 00:00:00 Viktoriya Witt [facility] Building One 1.2.840.114 350.1.13.10 4.2.7.2.686 [id number] 044 [id number] [facility] 2019-02-28 00:00:00 2019-02-28 [facility]00[facility] 1..840.114 350.1.13.10 4.2.7.2.686 [id number] 044 [id number] [facility] 2018-11-01 00:00:00 2018-11-01 [facility]:00[facility] 1.2.840.114 350.1.13.10 4.2.7.2.686 [id number] 044 [id number] [facility] Results Test Description Test Time Test Comments Results Result Co mments Source [facility]2023-10-14 21:48:55* Test Item Value Reference Range Interpretation Comme nts HGB A1C (test code = 4548-4) 8.0 % 4.0-5.7 H DENISHA (test code = DENISHA) Reference RangesNormal: <5.7%Prediabetes: 5.7 - 6.4%Diabetes: > 6.5% Lab Interpretation (test code = 83873-7) Abnormal [facility] (07280)2023-10-14 21:36:22* Test Item Value Reference Range Interpretation Comme nts NA (test code = 3998694857) 138 mmol/L 135-145 K (test code = 2123161518) 3.0 mmol/L 3.5-5.0 L CL (test code = 0165029942) 96 mmol/L 98-108 L CO2 TOTAL (test code = 1150779343) 32 mmol/L 23-31 H AGAP (test code = 8833992735) 10 2-16 BUN (test code = 8035374512) 13 mg/dL 7-23 GLUCOSE (test code = 0334815322) 186 mg/dL 70-110 H CREATININE (test code = 2160-0) 0.76 mg/dL 0.50-1.04 TOTAL BILI (test code = 9555108437) 0.5 mg/dL 0.1-1.1 CALCIUM (test code = 8282098542) 8.6 mg/dL 8.6-10.6 T PROTEIN (test code = 5403840985) 6.5 g/dL 6.3-8.2 ALBUMIN (test code = 0025537846) 3.7 g/dL 3.5-5.0 ALK PHOS (test code = 7227511736) 64 U/L 34-122 ALTv (test code = 1742-6) 13 U/L 5-35 AST(SGOT) (test code = 1910194734) 23 U/L 13-40 eGFR (test code = 42003-5) 88.7 mL/min/1.73m2 CKD-EPI eGFR (2020). Assuming creatinine has been stable day-to-day for at least three months, the eGFR indicates Category G2 (60 - 89 mL/min/1.73 m2) Lab Interpretation (test code = 47501-1) Abnormal [facility] (80141)(Total Cholesterol, Triglycerides, HDL)2023-10-14 21:36:22* Test Item Value Reference Range Interpretation Comme nts CHOL (test code = 0467467880) 107 mg/dL 120-200 L HDL (test code = 0349548966) 22 mg/dL >=50 L HDLC RATIO (test code = 1645895702) 4.9 <=4.5 H TRIG (test code = 1225106489) 262 mg/dL 30-170 H LDL CHOL (test code = 85081-2) 33 mg/dL <=160 VLDL (test code = 6427133544) 52 mg/dL 5-60 Lab Interpretation (test cod e = 60971-7) Abnormal [facility] A1C [id number] 17:50:00* Test Item Value Reference Range Interpretation Comme [facility] POCT HBA1C (test code = 4548-4) 7.5 % 4-6 A Lab Interpretation (test cod e = 38628-3) Abnormal [facility] HEMOGLOBIN A1C [id number] 17:50:00* Test Item Value Reference Range Interpretation Comme nts POCT HBA1C (test code = 4548-4) 7.5 % 4-6 A Lab Interpretation (test cod e = 49925-9) Abnormal [facility] MOLECULAR [id number] 16:34:56* Test Item Value Reference Range Interpretation Comme nts POCT Molecular FluA (test co de = 93589-9) Negative Negative POCT Molecular FluB (test co de = 21946-7) Negative Negative Lab Interpretation (test cod e = 46253-4) Normal [facility] MOLECULAR [id number] 16:34:56* Test Item Value Reference Range Interpretation Comme nts POCT Molecular FluA (test co de = 36841-3) Negative Negative POCT Molecular FluB (test co de = 44591-2) Negative Negative Lab Interpretation (test cod e = 02589-4) Normal [facility] MOLECULAR [id number] 16:30:10* Test Item Value Reference Range Interpretation Comme nts POCT Molecular Strep (test c ode = 86496-8) Negative Negative Lab Interpretation (test cod e = 45418-0) Normal [facility] MOLECULAR [id number] 16:30:10* Test Item Value Reference Range Interpretation Comme nts POCT Molecular Strep (test c ode = 55777-4) Negative Negative Lab Interpretation (test cod e = 74264-7) Normal [facility]. METABOLIC PANEL (43715)2022-07-19 21:35:09* Test Item Value Reference Range Interpretation Comme nts NA (test code = 8140109692) 139 mmol/L 135-145 K (test code = 2582399838) 4.1 mmol/L 3.5-5.0 CL (test code = 7214163231) 102 mmol/L 98-108 CO2 TOTAL (test code = 0890724160) 29 mmol/L 23-31 AGAP (test code = 1066069440) 2-16 BUN (test code = 1321709060) 12 mg/dL 7-23 GLUCOSE (test code = 0756012305) 236 mg/dL 70-110 H CREATININE (test code = 6843410954) 0.59 mg/dL 0.50-1.04 TOTAL BILI (test code = 4349924928) 0.5 mg/dL 0.1-1.1 CALCIUM (test code = 5505856746) 8.8 mg/dL 8.6-10.6 T PROTEIN (test code = 7392105206) 7.0 g/dL 6.3-8.2 ALBUMIN (test code = 5953270971) 4.2 g/dL 3.5-5.0 ALK PHOS (test code = 1213489521) 77 U/L 34-122 ALTv (test code = 1742-6) 27 U/L 5-35 AST(SGOT) (test code = 7706252058) 22 U/L 13-40 eGFR (test code = 3441303996) mL/min/1.73m2 DENISHA (test code = DENISHA) Association [...] imaging tests). Lab Interpretation (test code = 65747-5) Abnormal [facility] WITH [id number] 21:11:06* Test Item Value Reference Range Interpretation Comme nts WBC (test code = 6690-2) See_Comment [Automated 71lbsa ge] The system which generated this result transmitted reference range: 4.30 - 11.10 10*3/?L. The reference range was not used to interpret this result as normal/abnormal. RBC (test code = 789-8) See_Comment [Automated 71lbsa ge] The system which generated this result [...] g/dL 31.6-35.1 L RDW-SD (test code = 36070-0) 43.3 fL 39.0-49.9 RDW-CV (test code = 788-0) 14.8 % 12.0-15.5 PLT (test code = 777-3) See_Comment [Automated 71lbsa ge] The system which generated this result transmitted reference range: 166 - 358 10*3/?L. The reference range was not used to interpret this result as normal/abnormal. MPV (test code = 71885-1) 11.0 fL 9.5-12.9 NRBC/100 WBC (test code = 6103593102) See_Comment [Automated [employer] ssage] The system which generated this result transmitted reference range: 0.0 - 10.0 /100 WBCs. The reference range was not used to interpret this result as normal/abnormal. NRBC x10^3 (test code = 4997488233) See_Comment [Automated messa ge] The system which generated this result transmitted reference range: 10*3/?L. The reference range was not used to interpret this result as normal/abnormal. GRAN MAT (NEUT) % (test code = 770-8) 66.5 % IMM GRAN % (test code = 0837226947) 0.80 % LYMPH % (test code = 736-9) 21.8 % MONO % (test code = 5905-5) 7.3 % EOS % (test code = 713-8) 2.8 % BASO % (test code = 706-2) 0.8 % GRAN MAT x10^3(ANC) (test code = 8383688613) 7.14 10*3/uL 1.88-7.09 H IMM GRAN x10^3 (test code = 7540377644) 0.09 10*3/uL 0.00-0.06 H LYMPH x10^3 (test code = 731-0) 2.35 10*3/uL 1.32-3.29 MONO x10^3 (test code = 742-7) 0.79 10*3/uL 0.33-0.92 EOS x10^3 (test code = 711-2) 0.30 10*3/uL 0.03-0.39 BASO x10^3 (test code = 704-7) 0.09 10*3/uL 0.01-0.07 H Lab Interpretation (test code = 98143-0) [id number] 16:47:33* Test Item Value Reference Range Interpretation Comments TROPONIN I (test code = 1298216529) 0.005 ng/mL See_Comment [Automated message] The system [...] of biotin. Lab Interpretation (test code = 20759-3) Normal [facility]. METABOLIC PANEL (63482)2022-05-29 16:36:15* Test Item Value Reference Range Interpretation Comme nts NA (test code = 2153964530) 137 mmol/L 135-145 K (test code = 2824351368) 4.4 mmol/L 3.5-5.0 CL (test code = 6986822684) 100 mmol/L 98-108 CO2 TOTAL (test code = 7139371401) 22 mmol/L 23-31 L AGAP (test code = 3509878768) 2-16 BUN (test code = 4171228868) 14 mg/dL 7-23 GLUCOSE (test code = 4887297720) 190 mg/dL 70-110 H CREATININE (test code = 1187368790) 0.70 mg/dL 0.50-1.04 TOTAL BILI (test code = 7937280100) 0.3 mg/dL 0.1-1.1 CALCIUM (test code = 2844382450) 9.6 mg/dL 8.6-10.6 T PROTEIN (test code = 4806608018) 6.8 g/dL 6.3-8.2 ALBUMIN (test code = 0362362507) 4.2 g/dL 3.5-5.0 ALK PHOS (test code = 0825421431) 67 U/L 34-122 ALTv (test code = 1742-6) 40 U/L 5-35 H AST(SGOT) (test code = 4288199177) 44 U/L 13-40 H eGFR (test code = 6531300943) mL/min/1.73m2 DENISHA (test code = DENISHA) Association [...] imaging tests). Lab Interpretation (test code = 90412-0) Abnormal [facility] 16:35:55* Test Item Value Reference Range Interpretation Comme nts LIPASE (test code = 0612790843) 85 U/L 0-220 Lab Interpretation (test cod e = 02110-0) Normal [facility] WITH [id number] 16:18:33* Test Item Value Reference Range Interpretation Comme nts WBC (test code = 6690-2) See_Comment [Automated IRI] The system which generated this result transmitted reference range: 4.30 - 11.10 10*3/?L. The reference range was not used to interpret this result as normal/abnormal. RBC (test code = 789-8) See_Comment [Automated IRI] The system which generated this result transmitted [...] 32.7 g/dL 31.6-35.1 RDW-SD (test code = 61362-9) 43.2 fL 39.0-49.9 RDW-CV (test code = 788-0) 15.1 % 12.0-15.5 PLT (test code = 777-3) See_Comment [Automated messa ge] The system which generated this result transmitted reference range: 166 - 358 10*3/?L. The reference range was not used to interpret this result as normal/abnormal. MPV (test code = 09943-2) 10.3 fL 9.5-12.9 NRBC/100 WBC (test code = 0975157302) See_Comment [Automated [employer] ssage] The system which generated this result transmitted reference range: 0.0 - 10.0 /100 WBCs. The reference range was not used to interpret this result as normal/abnormal. NRBC x10^3 (test code = 5046330277) See_Comment [Automated 71lbsa ge] The system which generated this result transmitted reference range: 10*3/?L. The reference range was not used to interpret this result as normal/abnormal. GRAN MAT (NEUT) % (test code = 770-8) 66.7 % IMM GRAN % (test code = 6770477256) 0.80 % LYMPH % (test code = 736-9) 23.3 % MONO % (test code = 5905-5) 5.2 % EOS % (test code = 713-8) 3.0 % BASO % (test code = 706-2) 1.0 % GRAN MAT x10^3(ANC) (test code = 9539968542) 6.50 10*3/uL 1.88-7.09 IMM GRAN x10^3 (test code = 8238525673) 0.08 10*3/uL 0.00-0.06 H LYMPH x10^3 (test code = 731-0) 2.27 10*3/uL 1.32-3.29 MONO x10^3 (test code = 742-7) 0.51 10*3/uL 0.33-0.92 EOS x10^3 (test code = 711-2) 0.29 10*3/uL 0.03-0.39 BASO x10^3 (test code = 704-7) 0.10 10*3/uL 0.01-0.07 H Lab Interpretation (test code = 58912-8) Abnormal [facility] HEMOGLOBIN A1C [id number] 21:18:00* Test Item Value Reference Range Interpretation Comme nts POCT HBA1C (test code = 4548-4) 7.5 % 4-6 A Lab Interpretation (test cod e = 97903-1) Abnormal [facility] HEMOGLOBIN A1C [id number] 21:18:00* Test Item Value Reference Range Interpretation Comme nts POCT HBA1C (test code = 4548-4) 7.5 % 4-6 A Lab Interpretation (test cod e = 93150-7) Abnormal [facility] Notes Date/Time Note Provider Source 2024-04-13 10:35:01 Images from the original note were not included. Notes: Last Refilled: Name from pharmacy: LISINOPRIL 40MG TABLETS Will file in chart as: LISINOPRIL 40 mg tablet Sig: Take 1 tablet by mouth in the morning. Original sig: TAKE 1 TABLET BY MOUTH IN THE MORNING Disp: 90 tablet Refills: 1 (Pharmacy requested: Not specified) Start: 04/13/2024 Class: eRX Non-formulary For: Essential hypertension Last ordered: 6 months ago (10/14/2023) by Jefferson Witt MD Last refill: 01/06/2024 Rx #: [id number]|1|0|1 Cardiovascular: CHAZ Inhibitors Pobuxd8904/13/2024 10:20 AM Protocol Details Valid encounter within last 12 months K in normal range and within 360 days Cr in normal range and within 360 days To be filled at: [id number] - [place], [place] - [address] [facility] [employer] [address] Recent Visits Date Type Provider Dept 12/02/23 Office Visit Jefferson Witt MD [facility] 11/09/23 Office Visit Jefferson Witt MD [facility] 10/14/23 Office Visit Jefferson Witt MD [facility] 07/09/23 Office Visit Carla Velasco MD [facility] 07/01/23 Office Visit Jefferson Witt MD [facility] 05/11/23 Office Visit Jefferson Witt MD [facility] 04/08/23 Office Visit Jefferson Witt MD [facility] 03/26/23 Office Visit Jefferson Witt MD [facility] 02/11/23 Office Visit Jefferson Witt MD [facility] 12/22/22 Office Visit Daniel Castellon FNP [facility] Showing recent visits within past 540 days with a meds authorizing provider and meeting all other requirements Future Appointments No visits were found meeting these conditions. Showing future appointments within next 150 days with a meds authorizing provider and meeting all other requirements Flakita Sage MA [facility] 2024-02-15 14:42:44 Medication refilled per policy: Last office visit: 12/25/23 Next office visit: 05/13/24 Requested Prescriptions Pending Prescriptions Disp Refills Insulin [place], Disposable, (BD ULTRAFINE III MINI PEN) 31 gauge x 3/16" Ndle [Pharmacy Med Name: B-D PEN NDL MINI 32IS1KO(3/16)PRPL] 400 Each 1 Sig: USE FOUR TIMES DAILY DIRECTED Last fill date: 07/10/23 Labs: HGB A1C (%) Date Value 10/14/2023 8.0 (H) Notes: Type 2 diabetes mellitus without complication, with long-term current use of insulin E11.9 Melanie Stanley LVN [facility] 2024-02-15 09:29:31 Images from the original note were not included. Name from pharmacy: TIZANIDINE 4MG TABLETS Will file in chart as: TIZANIDINE 4 mg tablet Sig: TAKE 1 TABLET BY MOUTH EVERY 8 HOURS NEEDED Disp: 270 tablet Refills: 0 (Pharmacy requested: Not specified) Start: 02/15/2024 Class: eRX For: Chronic back pain, unspecified back location, unspecified back pain laterality Last ordered: 2 months ago (11/30/2023) by Jefferson Witt MD Last refill: 11/30/2023 Rx #: [id number]|1|0|1 Provider Review Required Znpkbc4202/13/2024 05:45 AM Protocol Details This refill cannot be delegated Valid encounter within last 12 months To be filled at: [facility] #[id number] - [place], [place] - [address] [facility] [employer] [address] Recent Visits Date Type Provider Dept 12/02/23 Office Visit Jefferson Witt MD [facility] 11/09/23 Office Visit Jefferson Witt MD [facility] 10/14/23 Office Visit Jefferson Witt MD [facility] 07/09/23 Office Visit Carla Velasco MD [facility] 07/01/23 Office Visit Jefferson Witt MD [facility] 05/11/23 Office Visit Jefferson Witt MD [facility] 04/08/23 Office Visit Jefferson Witt MD [facility] 03/26/23 Office Visit Jefferson Witt MD [facility] 02/11/23 Office Visit Jefferson Witt MD [facility] 12/22/22 Office Visit Daniel Castellon FNP [facility] Showing recent visits within past 540 days with a meds authorizing provider and meeting all other requirements Future Appointments No visits were found meeting these conditions. Showing future appointments within next 150 days with a meds authorizing provider and meeting all other requirements T [facility] 2024-02-12 09:34:17 Yaneli [facility] is notifying the clinic that the patient cancelled re certification appointment due to going to the ER for abdominal pain. Ras Moya [facility] 2024-01-26 12:00:40 From: Ilsa Johnson To: Office of Jefferson Witt Sent: 01/26/2024 11:24 AM CDT Subject: Medication Renewal Request Refills have been requested for the following medications: clonazePAM 1 mg tablet [Jefferson Witt] Preferred pharmacy: [id number] - [place] [address] [facility] [employer] [address] [employer] Delivery method: Pickup [facility] 2024-01-14 15:40:58 [place] [facility] 2024-01-14 15:09:28 Ilsa Johnson is a 63 year old female Vanessa with [facility] is calling to check status of a wound care order that they were needing signed. They sent it through suture sign in October. She is going to upload it again. Sarah Quinonez [facility] 2024-01-01 14:34:[address] Antoine [facility] 2023-12-31 15:48:39 Spoke to patient over the phone. Emphasized lifestyle modifications. Patient with h/o pancreatitis, but had gallstones that time. It may be difficult to institute GLP-1 agonist. Patient is also worried about UTI and yeast infection, so difficulty with SGLT-2i. Sometimes she's on antibiotics. Will discuss with Dr. Antoine. Kendell Fritz MD, PGY-4 Endocrinology Fellow [facility] 2023-12-29 14:40:10 From: Ilsa Johnson To: Office of Jefferson Witt Sent: 12/29/2023 2:39 PM CDT Subject: Medication Renewal Request Refills have been requested for the following medications: clonazePAM 0.5 mg tablet [Jefferson Witt] [id number] [place], [place] - [address] AT [employer] [address] [employer] Delivery method: Pickup Recent Visits Date Type Provider Dept 12/02/23 Office Visit Jefferson Witt MD [facility] 11/09/23 Office Visit Jefferson Witt MD [facility] 10/14/23 Office Visit Jefferson Witt MD [facility] 07/09/23 Office Visit Carla Velasco MD [facility] 07/01/23 Office Visit Jefferson Witt MD [facility] 05/11/23 Office Visit Jefferson Witt MD [facility] 04/08/23 Office Visit Jefferson Witt MD [facility] 03/26/23 Office Visit Jefferson Witt MD [facility] 02/11/23 Office Visit Jefferson Witt MD [facility] 12/22/22 Office Visit Daniel Castellon FNP [facility] Showing recent visits within past 540 days with a meds authorizing provider and meeting all other requirements Future Appointments No visits were found meeting these conditions. Showing future appointments within next 150 days with a meds authorizing provider and meeting all other requirements [facility] 2023-12-29 08:08:41 Ilsa Johnson is a 63 year old female Pt is calling requesting to switch from metformin and tresiba to ozempic, she states that the metformin isn't bringing her sugar down enough. Please advise. Michelle Johnson [facility] 2023-12-23 06:11:50 OK, she has been on these a long time. [facility] 2023-12-22 10:23:19 [facility] [phone] Reporting medication interactions between KCL 20 mEq tablet and spironolactone 25 mg tablet aldactone interacts with potassium COREG interacts with DULERA inhaler Albuterol interacts with her COREG Therapist states provider may already be aware but she is required to make the notification. Please F/u if necessary Tramaine Marrero [facility] 2023-12-22 08:26:09 Sending patient [employer] message. She needs to be seen but clinic has cancelled 2 future follow ups she had scheduled due to provider being out. Patient's blood sugars are running high and she is wanting to start back on Jardiance but she needs to be seen first. Parul Gould LVN [facility] 2023-12-21 11:55:05 Ilsa Johnson is a 63 year old female Patient is calling stating she would like to go ahead and be prescribed Jardiance. Stating blood sugars are in between 200-300 at night with the metformin. Please advise [id number] - [place] - [address] AT [employer] [address] [employer] [address] [phone] Ortiz Greene [facility] 2023-12-15 16:16:45 Medication refilled per policy: Last office visit: 12/02/23 Next office visit: 01/14/24 Requested Prescriptions Pending Prescriptions Disp Refills spironolactone 25 mg tablet 180 tablet 0 Sig: Take 1 tablet by mouth every morning and evening. Last fill date: 09/15/23 Labs: Recent Labs 10/14/23 1315 NA 138 CREATININE (mg/dL) Date Value 10/14/2023 0.76 K (mmol/L) Date Value 11/09/2023 4.8 Notes: Leg edema [facility] 2023-12-15 16:16:41 From: Ilsa Mcqueendmtorito To: Office of Jefferson Witt Sent: 12/15/2023 4:08 PM CDT Subject: Medication Renewal Request Refills have been requested for the following medications: spironolactone 25 mg tablet [Jefferson Witt] Preferred pharmacy: [facility][id number] - [place], [place] - [address] [facility] [employer] Delivery method: Pickup [facility] 2023-12-15 13:31:04 Faxed office notes from 12/02/23 to [phone] Gabi Kirkland MA [facility] 2023-12-15 11:31:36 Ilsa Johnson is a [address] [facility] clinic called back stating they still need the clinicals from 12/01. Please contact [phone] Hero Samuel [facility] 2023-12-15 10:15:36 Completed forms faxed to Dr. Ivory at [phone] Nereida Pierce LVN 12/15/2023 10:15 AM T [facility] 2023-12-15 09:42:05 Forms placed in Witt box for signature. T [facility] 2023-12-15 08:51:38 Notified patient we still have not received forms for diabetic shoes. She verbalized understanding. Is going to call the Office and have them re-faxed. Talked to Genevieve with Dr. Shelton and had them re-fax forms Nereida Pierce LVN 12/15/2023 8:52 AM T [facility] 2023-12-15 08:49:29 Copied from CRM #[id number]. Topic: Clinical - Medical Advice >> December 15, 2023 8:46 AM Patient Manager Terminal wrote: Ilsa Johnson is a 63 year old female Genevieve with Dr. Shelton is calling to check on status of forms that were faxed and re faxed today. Forms require providers signatuere for diabetic shoes Please advise Dr. Haddad PH. [phone] Shahida Arredondo [facility] 2023-12-15 08:48:01 Copied from CRM #[id number]. Topic: Clinical - Paperwork/Forms >> December 15, 2023 8:45 AM Patient Manager Terminal wrote: Patient is requesting an update on forms for diabetic shoes. Patient states that she needs this shoes as soon as possible. Ras Moya [facility] 2023-12-14 17:16:23 See pt's MyChart Message. Kendell Fritz MD, PGY-4 Endocrinology Fellow [facility] 2023-12-11 10:33:30 Per JULIO 07/10/23 Glipizide was d/c. Please see encounter on 08/07/23 regarding Glipizide being restarted. Please send refill if appropriate. Pt needs to schedule an appt. Appt was cancelled by clinic for upcoming appt on 12/31 and 01/07 d/t provider being out of office. Helena Pro LVN [facility] 2023-12-11 09:24:08 Ilsa Johnson is a 63 year old female Patient is almost out of Glipizide and needs a refill because she did not start the other medication because it makes her use the restroom too much. Patient was gotng to schedule appt. To address concerns of refills being denied but no appt is available for this week patient needs to be scheduled for sooner visit. Please assist with refill and appt. Shanelle Strange [facility] 2023-12-09 14:15:18 Orders to assess and admit for PT have been faxed to [facility] at [phone] Nereida Pierce LVN 12/09/2023 2:15 PM [facility] 2023-12-09 13:30:51 Still awaiting forms. Not in clinscan2 [facility] 2023-12-09 11:45:30 Ilsa Johnson is a 63 year old female Genevieve with Dr. Shelton is calling to check on status of forms that were faxed and re faxed today. Forms require providers signatuere for diabetic shoes Please advise [phone] (home) Genevieve with Dr. Shelton Research Interview[employer] [address] [place], [place] [address]Cam [facility] [address] [phone] Fax Steph Ayers [facility] 2023-12-08 13:43:58 [facility] 07/10/2023 NO Appt scheduled On [facility] 07/10/2023 note the provider has Stop glipizide in pt chart note. So refill denied Pt also needs appt scheduled for follow up. Madyson Rivera MA [facility] 2023-12-08 12:42:05 Spoke with patient and advised her we have not received orders for Diabetic shoes. She will reach out to [employer] and have them re-fax forms to [phone]. Further advised patient we had submitted orders for HH. She reports she had requested PT so she can walk again. Advised patient I will need to get Dr. Witt to sign orders tomorrow and I will fax them over. She verbalized understanding. Nereida Pierce LVN 12/08/2023 12:43 PM [facility] 2023-12-08 12:09:30 Copied from [facility] #[id number]. Topic: Clinical - Medical Advice >> December 08, 2023 12:08 PM Patient Manager Terminal wrote: Ilsa Johnson is a 63 year old female Patient calling back and asking if clinic has received any paperwork for patient's diabetic shoes and supplies - please advise and call patient to assist. [phone] (home) Leeanne Saavedraes [facility] 2023-12-08 10:50:58 Copied from [facility] #[id number]. Topic: Clinical - Order >> December 08, 2023 10:50 AM Patient Manager Terminal wrote: Pt called requesting to speak with a nurse in regards to orders. Please advise. Call back number:[phone]. Madyson Alas [facility] 2023-12-08 07:46:55 OK [facility] 2023-12-07 11:22:32 Ilsa Johnson is a 63 year old female Pt requesting orders for therapy from [facility]. [facility] [phone] Becca Colon [facility] 2023-12-01 11:57:45 Please review previous note Notes: 11/02/23 Last Refilled: [id number] - [place], [place] - [address] AT [employer] [address] Recent Visits Date Type Provider Dept 11/09/23 Office Visit Jefferson Witt MD [facility] 10/14/23 Office Visit Jefferson Witt MD [facility] 07/09/23 Office Visit Carla Velasco MD [facility] 07/01/23 Office Visit Jefferson Witt MD [facility] 05/11/23 Office Visit Jefferson Witt MD [facility] 04/08/23 Office Visit Jefferson Witt MD [facility] 03/26/23 Office Visit Jefferson Witt MD [facility] 02/11/23 Office Visit Jefferson Witt MD [facility] 12/22/22 Office Visit Daniel Castellon FNP [facility] 11/27/22 Office Visit Jefferson Witt MD [facility] Showing recent visits within past 540 days with a meds authorizing provider and meeting all other requirements Future Appointments Date Type Provider Dept 12/02/23 Appointment Jefferson Witt MD [facility] 01/14/24 Appointment Jefferson Witt MD [facility] Showing future appointments within next 150 days with a meds authorizing provider and meeting all other requirements Rebecca Francis MA [facility] 2023-12-01 11:18:06 Ilsa Johnson is a 63 year old female patient requesting refill on her clonazepam. States the pharmacy she normally uses does not have or will not fill the 120 of the 1 mg. The [facility] currently has this medication, but only the 0.5 mg. If possible she would like the order to go to the [facility] pharmacy, but for 240 of the 0.5. If not she said she would be fine with the 120 as long as she can get the medication. Please advise. [facility] #[id number] - [place], [place] - [address] AT [facility] [address] [place] [phone] [facility] 2023-12-01 10:51:24 Attempted to contact patient. No answer. Left message to call back. Patient has appt tomorrow will address then. [facility] [place] 2023-12-01 09:51:26 Copied from [facility] #[id number]. Topic: Clinical - Medical Advice >> Dec 01, 2023 9:50 AM Patient Manager Terminal wrote: Ilsa Johnson is a 63 year old female Pt is requesting for her latest lab results to be sent to: [facility] PH.[phone] [place] Shahida Arredondo [facility] 2023-11-30 07:09:21 Last Refilled: Recent Visits Date Type Provider Dept 11/09/23 Office Visit Jefferson Witt MD [facility] 10/14/23 Office Visit Jefferson Witt MD [facility] 07/09/23 Office Visit Carla Velasco MD [facility] 07/01/23 Office Visit Jefferson Witt MD [facility] 05/11/23 Office Visit Jefferson Witt MD [facility] 04/08/23 Office Visit Jefferson Witt MD [facility] 03/26/23 Office Visit Jefferson Witt MD [facility] 02/11/23 Office Visit Jefferson Witt MD [facility] 12/22/22 Office Visit Daniel Castellon FNP [facility] 11/27/22 Office Visit Jefferson Witt MD [facility] Showing recent visits within past 540 days with a meds authorizing provider and meeting all other requirements Future Appointments Date Type Provider Dept 12/02/23 Appointment Jefferson Witt MD [facility] 01/14/24 Appointment Jefferson Witt MD [facility] Showing future appointments within next 150 days with a meds authorizing provider and meeting all other requirements [facility] 2023-11-28 08:43:00 Regarding: face swelled up and blood in the urine x today ----- Message from Ericka Winston sent at 11/28/2023 8:43 AM CDT ----- Ilsa Johnson is a 63 year old female Pt is calling to speak to the nurse c/o face swelled up and noticed blood in the urine feels tongue getting shorter x today no other complaint scheduled an appt for Thursday however she is requesting to see the DrCamon Thursday morning Priti Robles RN [facility] 2023-11-28 08:43:00 Adult Triage Assessment Last Clinic Visit: 11/09/2023 Candidiasis; iron deficiency anemia, unspecified iron deficiency type; hypokalemia Primary Symptom: facial swelling Onset / Duration: today Location / Description: facial swelling - pain in jaw, right side mostly, but both sides hurt Pain / Severity: 6/10 jaw; Associated Symptoms: blood in urine first thing in the morning; headache; part of tongue missing - "I think it might be cancer" Fever / Method: denies Hydration: denies burning or discomfort with urination - notes blood in urine this morning but states "It's the first time I've looked in the toilet so I don't know how long I've had it"; "plenty I've had water (bottle) and coffee" Treatment so far: hydrocodone 7.5/325 mg 1 tablet couple hours ago Effect on ADL's: concerned LMP: NA Pre-existing condition / Immunocompromised: Right knee pain; type 2 diabetes mellitus; hyperlipidemia with target LDL less than 100; essential hypertension; anxiety; obesity; low back pain; bronchitis; shortness of breath; fever in adult tobacco dependence; neuropathy; calculus of gallbladder without cholecystitis without obstruction; chest pain; morbid obesity; chronic atrial fibrillation; implantable cardioverter-defibrillator in place; abnormal serum level of lipase; leg edema; obstructive sleep apnea; yeast infection of the skin; iron deficiency anemia, unspecified iron deficiency anemia type Advice given per Face Swelling Adult Protocol. Patient advised to be seen within 4 hours. Will go to today or tomorrow. Denies further needs or concerns at this time. Reason for Disposition [1] Looks infected AND [2] large red area (> 2 in. or 5 cm) Protocols used: Face [id number] [facility] 2023-11-23 10:18:27 FYI T [facility] 2023-11-23 10:07:39 Ilsa Johnson is a 63 year old female Anna ORTIZ RN called stating pt is being discharge 11/22 & wound on left heel has been resolve. Please advise Thank you Rayray Couch [facility] 2023-11-17 08:10:43 From: Ilsa Johnson To: Office of Jefferson Witt MD Sent: 11/17/2023 8:10 AM CDT Subject: Medication Renewal Request Refills have been requested for the following medications: CARVEDILOL 6.25 mg tablet [Jefferson Witt] Preferred pharmacy: [facility] #[id number] - [place], [place] - [address] [facility] [employer] Delivery method: Pickup [facility] 2023-11-12 15:55:17 Please review and advise [facility] 2023-11-12 15:49:15 Ilsa Johnson is a 63 year old female that states she has been taking antibiotics for a couple of weeks. The pt states that she has a yeast infection and is asking if Dr. Witt will send a prescription to the pharmacy. Nothing over the counter has helped. (Vaginal itching) Please assess/advise. [facility] #[id number] - [place], [place] - [address] [place] [phone] Stephanie Crespo [facility] 2023-11-11 14:02:59 Images from the original note were not included. Contacted patient. Patient notified of results per provider. Verbalized understanding. Good potassium, slight improvement in anemia Written by Jefferson Witt MD on 11/10/2023 6:16 AM CDT Seen by patient Ilsa Johnson on 11/10/2023 6:57 AM Nereida Pierce LVN 11/11/2023 2:03 PM [facility] 2023-11-11 13:49:02 Ilsa Johnson is a 63 year old female Pt called regarding lab results stating that some test are low and some are high. Pt was wanting to know if there is any concerns, pt states that she is worried because she feels week and tired. Please advise. Odin Moya [facility] 2023-11-11 09:21:03 Copied from [facility] #[id number]. Topic: Clinical - Results >> Nov 11, 2023 9:19 AM Patient Manager Terminal wrote: Pt calling clinic wanting to speak with a nurse about her lab results Essie York [facility] 2023-11-09 14:15:00 Images from the original note were not included. Venipuncture collection performed by clean technique on the left anticubitus. Total of 1 attempts were made. Slight pressure and a bandage/dressing were applied to the site(s). The patient experienced no complications. The following specimens were processed according to instructions and sent to [facility] laboratories per lab order on 11/09/2023 : LT BLUE SST 1 RED LAV 1 PPT DK GREEN (LiHep) DK GREEN (SodH) PRINCE DK BLUE (K2) DK BLUE (S) ACD Blood Culture NIPT/NTD [facility] 2023-11-06 08:35:40 LVm to offer appt with [employer] or PA, Dr. Witt off today Nani Waldron [facility] 2023-11-04 22:16:34 Ilsa Johnson is a 63 year old female Is calling because she wanted to see if she can come in on 4 or Thursday 5 she has painful sores in her mouth and can't wait until Thursday when her appointment is, please assist [phone] Alexandre Campos [facility] 2023-11-03 13:45:40 Received lab results from [facility]. Placed in the providers box. Nani Mccauley [facility] 2023-11-02 07:07:37 From: Ilsa Johnson To: Office of Jefferson Witt MD Sent: 11/01/2023 7:05 PM CDT Subject: Medication Renewal Request Refills have been requested for the following medications: clonazePAM 1 mg tablet [Jefferson Witt] [id number] [place] [address] [facility]NOTE 3] Delivery method: Pickup Recent Visits Date Type Provider Dept 10/14/23 Office Visit Jefferson Witt MD [facility] 07/09/23 Office Visit Carla Velasco MD [facility] 07/01/23 Office Visit Jefferson Witt MD [facility] 05/11/23 Office Visit Jefferson Witt MD [facility] 04/08/23 Office Visit Jefferson Witt MD [facility] 03/26/23 Office Visit Jefferson Witt MD [facility] 02/11/23 Office Visit Jefferson Witt MD [facility] 12/22/22 Office Visit Daniel Castellon FNP [facility] 11/27/22 Office Visit Jefferson Witt MD [facility] 11/12/22 Office Visit Jefferson Witt MD [facility] Showing recent visits within past 540 days with a meds authorizing provider and meeting all other requirements Future Appointments Date Type Provider Dept 01/14/24 Appointment Jefferson Witt MD [facility] Showing future appointments within next 150 days with a meds authorizing provider and meeting all other requirements [facility] 2023-10-20 08:23:54 Addended by: NEREIDA PIERCE on: 10/20/2023 08:23 AM Modules accepted: Orders [facility] 2023-10-20 08:21:19 Outpatient Medication Detail Disp Refills Start End JOANNE nystatin 100,000 unit/mL suspension 120 mL 0 10/20/2023 -- No Sig: Take 5 mL by mouth 4 (four) times daily. Sent to pharmacy as: nystatin 100,000 unit/mL oral suspension (NILSTAT) Class: eRX Route: Oral Order: [id number] Date/Time Signed: 10/20/2023 08:21 E-Prescribing Status: Receipt confirmed by pharmacy (10/20/2023 8:21 AM CDT) Associated Diagnoses Thrush, oral - Primary Order Associated Providers Name NPI Ordering Provider Jefferson Witt MD [[id number]] [id number] Authorizing Provider Jefferson Witt MD [[id number]] [id number] Order Mode Info Action Created on Order Mode Entered by Responsible Provider Signed by Signed on Ordering 10/20/23 0821 Standing Delegated Orders Nereida Pierce LVN Rogers, Anthony, MD Pharmacy [facility] #[id number] - [place], [place] - [address] [facility] [employer] Left patient detailed, private voicemail informing her of the above medication being called in. [facility] 2023-10-20 06:26:32 Nystatin suspension . 5cc swish and swallow Qid, ! BOTTLE. T [facility] 2023-10-19 10:00:31 Please review and advise. T [facility] 2023-10-19 09:53:54 Copied from [facility] #[id number]. Topic: Clinical - Medical Advice >> Oct 19, 2023 9:52 AM Patient Manager Terminal wrote: Ilsa Johnson is a 63 year old female Anna with [employer] is calling stating patient is receiving Vancomycin through IV and has pain to her tongue with white patches - asking if Dr. Witt wants to order any other medications [phone] Leeanne Ventura [facility] 2023-10-15 09:21:44 Images from the original note were not included. Spoke to patient and relayed lab results. Advised patient to begin taking OTC iron supplement 325 mg as ell as KCL20 MeQ twice daily that has been sent to [facility] in [place]. She verbalized understanding and does not have further questions at this time. Repeat potassium lab ordered as well. Low potassium, otherwise stable. Need to add KCl, 20meq po bid, #60, recheck K in a week Written by Jefferson Witt MD on 10/15/2023 6:09 AM CDT Seen by patient Ilsa Johnson on 10/15/2023 7:34 AM Anemia, slightly worse. Written by Jefferson Witt MD on 10/15/2023 6:09 AM CDT Seen by patient Ilsa Johnson on 10/15/2023 7:34 AM Nereida Pierce LVN 10/15/2023 9:24 AM [facility] 2023-10-15 09:00:11 I think its 325 [facility] 2023-10-15 08:14:26 Dosage? [facility] 2023-10-15 08:02:49 Daily otc iron [facility] 2023-10-15 07:51:16 Images from the original note were not included. Anemia, slightly worse. Written by Jefferson Witt MD on 10/15/2023 6:09 AM CDT Seen by patient Ilsa Johnson on 10/15/2023 7:34 AM Please advise on what patient needs to take or do for anemia [facility] 2023-10-15 07:42:56 Ilsa Johnson is a 63 year old female that would like to speak with a nurse about her lab results, especially, the low iron. She's asking for clarification of what she needs to take. Please advise. Stephanie Crespo [facility] 2023-10-14 13:15:00 Images from the original note were not included. Venipuncture collection performed by clean technique on the right anticubitus. Total of 1 attempts were made. Slight pressure and a bandage/dressing were applied to the site(s). The patient experienced no complications. The following specimens were processed according to instructions and sent to [facility] laboratories per lab order on 10/14/2023: LT BLUE SST 1 RED LAV 2 PPT DK GREEN (LiHep) DK GREEN (SodH) PRINCE DK BLUE (K2) DK BLUE (S) ACD Blood Culture NIPT/NTD Daysi Jay [facility] 2023-10-14 13:15:00 Addended by: NEREIDA PIERCE on: 10/15/2023 09:19 AM Modules accepted: Orders T [facility] 2023-10-09 08:49:15 From: Ilsa Johnson To: Office of Jefferson Witt MD Sent: 10/09/2023 8:35 AM BALANCE STAFF INSPECTOR Subject: Medication Renewal Request Refills have been requested for the following medications: ALBUTEROL 90 mcg/actuation inhaler [Jefferson Witt] Preferred pharmacy: [facility][id number] - [place], [place] - [address] AT [employer] [address] [employer] Delivery method: Pickup Recent Visits Date Type Provider Dept 07/09/23 Office Visit Carla Velasco MD [facility] 07/01/23 Office Visit Jefferson Witt MD [facility] 05/11/23 Office Visit Jefferson Witt MD [facility] 04/08/23 Office Visit Jefferson Witt MD [facility] 03/26/23 Office Visit Jefferson Witt MD [facility] 02/11/23 Office Visit Jefferson Witt MD [facility] 12/22/22 Office Visit Daniel Castellon FNP [facility] 11/27/22 Office Visit Jefferson Witt MD [facility] 11/12/22 Office Visit Jefferson Witt MD [facility] 10/30/22 Office Visit Rosette Contreras PA [facility] Showing recent visits within past 540 days with a meds authorizing provider and meeting all other requirements Future Appointments Date Type Provider Dept 10/14/23 Appointment Jefferson Witt MD [facility] Showing future appointments within next 150 days with a meds authorizing provider and meeting all other requirements NCE STAFF INSPECTOR [facility] 2023-10-01 07:05:53 From: Ilsa Johnson To: Office of Jefferson Witt MD Sent: 09/30/2023 6:41 PM BALANCE STAFF INSPECTOR Subject: Medication Renewal Request Refills have been requested for the following medications: clonazePAM 1 mg tablet [Jefferson Witt] [id number] - [place], [place] [address] [address] [employer] Delivery method: Pickup Recent Visits Date Type Provider Dept 07/09/23 Office Visit Carla Velasco MD [facility] 07/01/23 Office Visit Jefferson Witt MD [facility] 05/11/23 Office Visit Jefferson Witt MD [facility] 04/08/23 Office Visit Jefferson Witt MD [facility] 03/26/23 Office Visit Jefferson Witt MD [facility] 02/11/23 Office Visit Jefferson Witt MD [facility] 12/22/22 Office Visit Daniel Castellon FNP [facility] 11/27/22 Office Visit Jefferson Witt MD [facility] 11/12/22 Office Visit Jefferson Witt MD [facility] 10/30/22 Office Visit Rosette Contreras PA [facility] Showing recent visits within past 540 days with a meds authorizing provider and meeting all other requirements Future Appointments Date Type Provider Dept 10/05/23 Appointment Jefferson Witt MD [facility] Showing future appointments within next 150 days with a meds authorizing provider and meeting all other requirements [facility] 2023-09-25 08:44:44 Alexandrea with [facility] notified per Dr. Witt he does not follow IV vanc ordrs or manage them. She verbalized understanding. Nereida Pierce LVN 09/25/2023 8:45 AM [facility] 2023-09-24 14:16:51 No, I don't do that with vancomycin [facility] 2023-09-24 13:01:20 Please review and advise. [facility] Dianna Bell RN [facility] 2023-09-24 12:52:43 Ilsa Johnson is a 63 year old female and Alexandrea with [facility] is calling stating pt is in their care and would like to know if Dr. Witt would be ok with following the course of care for the IV vank and required labs for the duration of after care medication. Please advise. NCE STAFF INSPECTOR Juany Bower [facility] 2023-09-16 13:54:27 Ilsa Johnson is a 63 year old female Patient is calling to request a refill on Rx lisinopriL 40 mg tablet. Please advise. [facility] #[id number] - [place], [place] - [address] [employer] NCE STAFF INSPECTOR Leeanne Ventura [facility] 2023-09-15 08:20:32 From: Ilsa Johnson To: Office of Jefferson Witt MD Sent: 09/14/2023 4:46 PM BALANCE STAFF INSPECTOR Subject: Medication Renewal Request Refills have been requested for the following medications: SPIRONOLACTONE 25 mg tablet [Jefferson Witt] Preferred pharmacy: [facility] #[id number] - [place], [place] - [address] [employer] Delivery method: Pickup Outpatient Medication Detail Disp Refills Start End JOANNE SPIRONOLACTONE 25 mg tablet 180 tablet 0 04/13/2023 -- No Sig: TAKE 1 TABLET BY MOUTH IN THE MORNING AND IN THE EVENING Sent to pharmacy as: spironolactone 25 mg tablet (ALDACTONE) Class: eRX Order: [id number] Date/Time Signed: 04/13/2023 08:49 E-Prescribing Status: Receipt confirmed by pharmacy (04/13/2023 8:49 AM CDT) Recent Visits Date Type Provider Dept 07/09/23 Office Visit Carla Velasco MD Ang-Db [facility] 07/01/23 Office Visit Jefferson Witt MD Ang-Db [facility] 05/11/23 Office Visit Jefferson Witt MD Ang[facility]Db [facility] 04/08/23 Office Visit Jefferson Witt MD [facility] 03/26/23 Office Visit Jefferson Witt MD [facility] 02/11/23 Office Visit Jefferson Witt MD [facility] 12/22/22 Office Visit Daniel Castellon FNP [facility] 11/27/22 Office Visit Jefferson Witt MD [facility] 11/12/22 Office Visit Jefferson Witt MD [facility] 10/30/22 Office Visit Rosette Contreras PA [facility] Showing recent visits within past 540 days with a meds authorizing provider and meeting all other requirements Future Appointments Date Type Provider Dept 10/05/23 Appointment Jefferson Witt MD [facility] Showing future appointments within next 150 days with a meds authorizing provider and meeting all other requirements [facility] 2023-09-11 16:36:11 Patient notified of all and verbalized understanding. No further needs voiced at this time. ON Stanley LVN [facility] 2023-09-11 13:29:16 Ilsa Johnson is a 63 year old female Pt returning phone call from clinic. Pt is wanting to know how much iron she needs to be taking, she increased her dosage to 65 mg. Please advise. [phone] (home) ON John [facility] 2023-09-11 09:18:42 Last Refilled: amLODIPine 10 mg [id number]--NoSig: Take 1 tablet by mouth in the morning.Sent to pharmacy as: amLODIPine 10 mg tablet ([facility])Class: eRXRoute: OralOrder: [id number]/Time Signed: 03/26/2023 13:04E-Prescribing Status: Receipt confirmed by pharmacy (03/26/2023 1:05 PM CDT) Notes: Recent Visits Date Type Provider Dept 07/09/23 Office Visit Carla Velasco MD [facility] 07/01/23 Office Visit Jefferson Witt MD [facility] 05/11/23 Office Visit Jefferson Witt MD [facility] 04/08/23 Office Visit Jefferson Witt MD [facility] 03/26/23 Office Visit Jefferson Witt MD [facility] 02/11/23 Office Visit Jefferson Witt MD [facility] 12/22/22 Office Visit Daniel Castellon FNP [facility] 11/27/22 Office Visit Jefferson Witt MD [facility] 11/12/22 Office Visit Jefferson Witt MD [facility] 10/30/22 Office Visit Rosette Contreras PA [facility] Showing recent visits within past 540 days with a meds authorizing provider and meeting all other requirements Future Appointments Date Type Provider Dept 10/05/23 Appointment Jefferson Witt MD [facility] Showing future appointments within next 150 days with a meds authorizing provider and meeting all other requirements [facility] Maggie Schreiber RN [facility] 2023-09-10 14:05:40 Continue with the otc iron [facility] 2023-09-10 13:55:38 Please review and advise JULIO 07/09/23 NOV 10/05/23 [facility] 2023-09-10 13:47:51 Ilsa Johnson is a 63 year old female that states her recent lab work showed that she had been low in iron. The pt states that she is taking 28mg of iron but still feels tired and run down. The pt is asking how much iron she should take. Please advise. NCE STAFF INSPECTOR Stephanie Crespo [facility] 2023-09-04 09:03:15 Tried to reach Ms. Johnson to discuss concerns and the benefits of jardiance, however was unable to reach her and left a voice mail at this time. Will follow up again. NCE STAFF INSPECTOR IM-ENDOCRINOLOGY,DIABETE S & METABOLISM [facility] 2023-09-02 08:32:48 From: Ilsa Johnson To: Office of Jefferson Wtit MD Sent: 09/01/2023 7:05 PM BALANCE STAFF INSPECTOR Subject: Medication Renewal Request Refills have been requested for the following medications: clonazePAM 1 mg tablet [Jefferson Witt] [id number] - [place], [place] [address] [address] [facility] [employer] Delivery method: Pickup Recent Visits Date Type Provider Dept 07/09/23 Office Visit Carla Velasco MD [facility] 07/01/23 Office Visit Jefferson Witt MD [facility] 05/11/23 Office Visit Jefferson Witt MD [facility] 04/08/23 Office Visit Jefferson Witt MD [facility] 03/26/23 Office Visit Jefferson Witt MD [facility] 02/11/23 Office Visit Jefferson Witt MD [facility] 12/22/22 Office Visit Daniel Castellon FNP [facility] 11/27/22 Office Visit Jefferson Witt MD [facility] 11/12/22 Office Visit Jefferson Witt MD [facility] 10/30/22 Office Visit Rosette Contreras PA [facility] Showing recent visits within past 540 days with a meds authorizing provider and meeting all other requirements Future Appointments Date Type Provider Dept 10/05/23 Appointment Jefferson Witt MD [facility] Showing future appointments within next 150 days with a meds authorizing provider and meeting all other requirements [facility] 2023-08-18 16:13:14 Images from the original note were not included. Requested Renewals Name from pharmacy: CHLORHEXIDINE 0.12% ORAL RINS 473ML Will file in chart as: CHLORHEXIDINE 0.12 % mouthwash Sig: SWISH AND SPIT 15 ML BY MOUTH TWICE DAILY Disp: 473 mL Refills: 1 (Pharmacy requested: Not specified) Start: 08/18/2023 Class: eRX For: Gingivitis Last ordered: 9 months ago (10/27/2022) by Jefferson Witt MD Last refill: 11/27/2022 Rx #: [id number]|0|1 General Refills [id number]/18/2023 04:12 PM Protocol Details Valid encounter within last 12 months To be filled at: [facility] #[id number] - [place], [place] - [address] [employer] [address] Recent Visits Date Type Provider Dept 07/09/23 Office Visit Carla Velasco MD [facility] 07/01/23 Office Visit Jefferson Witt MD [facility] 05/11/23 Office Visit Jefferson Witt MD [facility] 04/08/23 Office Visit Jefferson Witt MD [facility] 03/26/23 Office Visit Jefferson Witt MD [facility] 02/11/23 Office Visit Jefferson Witt MD [facility] 12/22/22 Office Visit Daniel Castellon FNP [facility] 11/27/22 Office Visit Jefferson Witt MD [facility] 11/12/22 Office Visit Jefferson Witt MD [facility] 10/30/22 Office Visit Rosette Contreras PA [facility] Showing recent visits within past 540 days with a meds authorizing provider and meeting all other requirements Future Appointments Date Type Provider Dept 10/05/23 Appointment Jefferson Witt MD [facility] Showing future appointments within next 150 days with a meds authorizing provider and meeting all other requirements [facility] 2023-08-14 08:45:00 Images from the original note were not included. Venipuncture collection performed by clean technique on the right anticubitus. Total of 1 attempts were made. Slight pressure and a bandage/dressing were applied to the site(s). The patient experienced no complications. The following specimens were processed according to instructions and sent to [facility] laboratories per lab order on 08/14/2023 : LT BLUE SST 1 RED LAV 1 PPT DK GREEN (LiHep) DK GREEN (SodH) PRINCE DK BLUE (K2) DK BLUE (S) ACD Blood Culture NIPT/NTD [facility] 2023-08-10 14:06:30 Images from the original note were not included. Name from pharmacy: GLIPIZIDE ER 5MG TABLETS Will file in chart as: GLIPIZIDE XL 5 mg 24 hr tablet Sig: TAKE 1 TABLET BY MOUTH DAILY WITH BREAKFAST Julio 07/10/23 Diabetes is Moderately controlled. --Take Tresiba 48 units once daily --Reduce metformin to 850 mg once daily --Continue Jardiance 10 mg daily. --Stop glipizide. --Emphasized lifestyle modifications. On July 17, 2023 Nevaeh Payton 07/17/23 8:59 AM Note Pt calling says she need to go over meds is having issues with empagliflozin (JARDIANCE) 10 mg Making her urinate often and says it not helping lowering her blood sugars just want to stay on metformin and glipizide only Routing to [place] if ok to stop jardiance and take glipizide and metformin NCE STAFF INSPECTOR Alexandre Payton MA [facility] 2023-08-07 08:19:10 Images from the original note were not included. Requested Renewals Name from pharmacy: TIZANIDINE 4MG TABLETS Will file in chart as: TIZANIDINE 4 mg tablet Sig: TAKE 1 TABLET BY MOUTH EVERY 8 HOURS NEEDED Disp: 270 tablet Refills: 0 (Pharmacy requested: Not specified) Start: 08/07/2023 Class: eRX Non-formulary For: Chronic back pain, unspecified back location, unspecified back pain laterality Last ordered: 2 months ago (05/13/2023) by Jefferson Witt MD Last refill: 05/13/2023 Rx #: [id number]|0|1 Provider Review Required [id number]/07/2023 05:46 AM Protocol Details This refill cannot be delegated Valid encounter within last 12 months To be filled at: [facility] #[id number] - [place], [place] - [address] [employer] [address] [employer] Recent Visits Date Type Provider Dept 07/09/23 Office Visit Carla Velasco MD [facility] 07/01/23 Office Visit Jefferson Witt MD [facility] 05/11/23 Office Visit Jefferson Witt MD [facility] 04/08/23 Office Visit Jefferson Witt MD [facility] 03/26/23 Office Visit Jefferosn Witt MD [facility] 02/11/23 Office Visit Jefferson Witt MD [facility] 12/22/22 Office Visit Daniel Castellon FNP [facility] 11/27/22 Office Visit Jefferson Witt MD [facility] 11/12/22 Office Visit Jefferson Witt MD [facility] 10/30/22 Office Visit Rosette Contreras PA [facility] Showing recent visits within past 540 days with a meds authorizing provider and meeting all other requirements Future Appointments Date Type Provider Dept 10/05/23 Appointment Jefferson Witt MD [facility] Showing future appointments within next 150 days with a meds authorizing provider and meeting all other requirements [facility] 2023-08-05 10:02:47 Images from the original note were not included. Last Refilled: 07/07/23 Notes: [facility] #[id number] - [place], [place] - [address] [employer] [address] [employer] Recent Visits Date Type Provider Dept 07/09/23 Office Visit Carla Velasco MD [facility] 07/01/23 Office Visit Jefferson Witt MD [facility] 05/11/23 Office Visit Jefferson Witt MD [facility] 04/08/23 Office Visit Jefferson Witt MD [facility] 03/26/23 Office Visit Jefferson Witt MD [facility] 02/11/23 Office Visit Jefferson Witt MD [facility] 12/22/22 Office Visit Daniel Castellon FNP [facility] 11/27/22 Office Visit Jefferson Witt MD [facility] 11/12/22 Office Visit Jefferson Witt MD [facility] 10/30/22 Office Visit Rosette Contreras PA [facility] Showing recent visits within past 540 days with a meds authorizing provider and meeting all other requirements Future Appointments Date Type Provider Dept 10/05/23 Appointment Jefferson Witt MD [facility] Showing future appointments within next 150 days with a meds authorizing provider and meeting all other requirements clonazePAM 1 mg tablet Sig: TAKE 1 TABLET BY MOUTH FOUR TIMES DAILY NEEDED FOR PANIC Disp: 120 tablet Refills: 0 Start: 08/05/2023 Class: eRX For: Anxiety Last ordered: 4 weeks ago (07/07/2023) by Nora Morrow MD Provider Review Required Skrrgl1108/05/2023 08:19 AM Protocol Details This refill cannot be delegated Valid encounter within last 12 months To be filled at: [facility] #[id number] - [place] - [address] [employer] [address] [employer] ON [place] MA [facility] 2023-08-05 08:16:59 Ilsa Johnson is a 63 year old female Patient requesting a refill of: Medication: clonazePAM Dose: 1 mg Route: oral Quantity: 120 tablets Pharmacy: [facility] #[id number] - [place] - [address] [employer] [address] [employer] [address] [place] [address] Last appt.: 07/01/23 Next appt.: 10/05/23 [facility] 2023-08-04 09:47:[address] orders if approved ON [place] [facility] 2023-08-04 08:36:08 Ilsa Johnson is a 63 year old female calling in requesting lab orders patient wants to check her hemoglobin as well as Iron.Please advise ON Craig [facility] 2023-07-30 14:50:19 JULIO:07/10/2023 NOV:01/01/2024 Last note; Plan --take Tresiba 48 units once daily --Reduce metformin to 850 mg once daily --Continue Jardiance 10 mg daily. --Stop glipizide. Return in about 4 months (around 11/09/2023). __ Refilled Gabapentin NCE STAFF INSPECTOR Sarah Cantrell RN [facility] 2023-07-17 08:57:47 Pt calling says she need to go over meds is having issues with empagliflozin (JARDIANCE) 10 mg Making her urinate often and says it not helping lowering her blood sugars just want to stay on metformin and glipizide only NCE STAFF INSPECTOR Nevaeh Payton [facility] 2023-04-20 14:19:42 Formatting of this n ote might be different from the original. Order placed via parachute. Will update as carrie permits. [facility] 2023-04-20 06:25:22 Formatting of this n ote might be different from the original. [place] [facility] 2023-04-17 08:09:19 Formatting of this n ote might be different from the original. Please review and advise T [facility] 2023-04-15 13:14:13 Formatting of this n ote might be different from the original. Patient is requesting an order for a bed rail. She is not sure if Medicare will pay for it. Rashida Marrero [facility] 2023-04-13 16:17:55 Formatting of this n ote might be different from the original. Medication sent in per and Anna with home health has been notified. She stated she will contact the patient to let her know. [facility] 2023-04-13 15:35:56 Formatting of this n ote might be different from the original. Ok diflucan 150mg times 1 [facility] 2023-04-13 14:46:45 Formatting of this n ote might be different from the original. Anna with [facility] health is calling in requesting medication for current yeast infection due to recent ABX usage.Please advise Nicola Craig [facility] 2023-04-08 07:59:50 Formatting of this n ote might be different from the original. Next Appt: With Family Medicine (Jefferson Witt MD) 04/08/2023 at 9:30 AM Will take care of this at her appt today per Dr. Witt [facility] 2023-04-07 15:50:18 Formatting of this n ote might be different from the original. Pt says she need larger wheel chair the one she has is uncomfortable she uses [place] Patient Nevaeh Payton [facility] 2023-03-28 15:03:00 Formatting of this n ote might be different from the original. Regarding: [id number], 62y/f, BP last 2 nights over 200, today it is 155/70. seeking advice about ER? ----- Message from Daphnie Barragan sent at 03/28/2023 3:03 PM CDT ----- Ilsa Johnson is a 62 year old female Alana Freire RN [facility] 2023-03-28 15:03:00 Formatting of this n ote might be different from the original. Adult Triage Assessment Last Clinic Visit: 03/26/23 Hypertension follow up , back pain Primary Symptom: "I'm under a lot of stress [...] Diastolic >= 80 AND [2] taking BP medications Protocols used: High Blood [id number] Patient calling concerned of elevated blood pressure last [...] at follow up. She agrees with this plan. Alana Freire RN [facility] Access Center Triage Nurse [facility] 2023-03-27 15:08:46 Formatting of this n ote might be different from the original. Home Health cert for 03/15/23-05/13/23 approved and ready for provider signature in suture sign. Please review and sign if appropriate. Dianna Bell RN [facility] 2023-03-26 07:46:02 Formatting of this n ote might be different from the original. Spoke with patient stated " I have [...] Patient verbalized understanding and agreed with recommendations. Elizabeth Sotelo RN [facility] 2023-03-26 07:41:47 Formatting of this n ote might be different from the original. Patient is calling stating her blood pressure is high, she does not know what it is this morning but last night it was 185/89. She states she is under a lot of stress and being treated for an infection on her leg. Nurse notified. Rashida Marrero [facility] 2023-02-25 09:22:14 Formatting of this n ote is different from the original. JULIO 05/23/22 NOV 07/10/23 Per encounter on 09/12/21 regarding Glipizide: Please call the patient and inform her of the below medication I have added to her regimen. glipiZIDE XL 5 mg 24 hr tablet 90 tablet 1 09/13/2021 -- Sig: Take 1 tablet by mouth daily with breakfast. Sent to Pharmacy [facility] 2023-02-24 17:18:05 Formatting of this n ote might be different from the original. Images from the original note were not included. Jayashree Macedo [facility] 2023-02-24 17:16:49 Formatting of this n ote might be different from the original. Images from the original note were not included. [facility] 2023-02-20 15:35:26 Formatting of this n ote is different from the original. Images from the original note were not included. METFORMIN 850MG TABLETS metFORMIN 850 mg tablet 270 tablet 0 12/06/2022 No Sig: TAKE 1 TABLET BY MOUTH THREE TIMES DAILY Sent to pharmacy as: metFORMIN 850 mg tablet (GLUCOPHAGE) Class: eRX Order: [id number] Date/Time Signed: 12/06/2022 16:36 E-Prescribing Status: Receipt confirmed by pharmacy (12/06/2022 4:37 PM CDT) Julio:02/11/2023 Medication List As of 02/11/2023 9:41 AM acetic acid 0.25 % USE DIRECTED FOR WOUND CARE DAILY albuterol sulfate 90 mcg/actuation INHALE 2 PUFFS BY MOUTH EVERY 6 HOURS NEEDED FOR WHEEZING, SHORTNESS OF BREATH OR BRONCHOSPASMS. alcohol antiseptic pads No dose, route, or frequency recorded. amoxicillin 500 mg Oral BID aspirin 325 mg Oral DAILY azelastine HCl 137 mcg (0.1 %) 1 [place] Nasal BID, Use in each nostril as directed benzonatate 100 mg Oral Q8HPRN carvedilol 6.25 mg Oral BID cefepime in iso-osm dextrose 2 gram/100 mL No dose, route, or frequency recorded. cephalexin 500 mg Oral QID chlorhexidine gluconate 4 % Liqd, Topical QDAILYPRN 0.12 % Mwsh, SWISH AND SPIT 15 ML BY MOUTH TWICE DAILY cholecalciferol (vitamin D3) 1,250 mcg (50,000 unit) 1 capsule Oral QWEEKLY clonazepam 1 mg Oral TID collagenase Clostridium hist. 250 unit/gram APPLY NICKEL THICK TO WOUND DAILY diclofenac sodium 75 mg Oral BID MEALS empagliflozin 10 mg Oral DAILY fluconazole 150 mg Oral Q5DAYS 150 mg Tab, Weekly for 4 weeks furosemide 80 mg Oral DAILY gabapentin 300 mg TAKE 1 CAPSULE BY MOUTH FOUR TIMES DAILY glipizide 5 mg Oral QAM WITH BREAKFAST insulin degludec 200 unit/mL (3 mL) ADMINISTER 62 UNITS UNDER THE SKIN THREE TIMES DAILY ketoconazole 2 % Topical QDAILYPRN latanoprost 0.005 % INSTILL 1 DROP INTO BOTH EYES ONCE DAILY lisinopril 20 mg Oral DAILY loxapine succinate 50 mg No dose, route, or frequency recorded. meloxicam 7.5 mg Oral DAILY metformin HCl 850 mg TAKE 1 TABLET BY MOUTH THREE TIMES DAILY Nov:07/10/2023 Refill sent [facility] 2023-02-20 07:33:47 Formatting of this n ote is different from the original. Refill cannot be delegated. Please review and fill if appropriate. Outpatient Medication Detail Disp Refills Start End JOANNE TIZANIDINE 4 mg tablet 270 tablet 0 12/08/2022 No Sig: TAKE 1 TABLET BY MOUTH EVERY 8 HOURS NEEDED Sent to pharmacy as: tiZANidine 4 mg tablet (ZANAFLEX) Class: eRX Order: [id number] Date/Time Signed: 12/08/2022 06:29 E-Prescribing Status: Receipt confirmed by pharmacy (12/08/2022 6:29 AM CDT) Recent Visits Date Type Provider Dept 02/11/23 Office Visit Jefferson Witt MD [facility] 12/22/22 Office Visit Daniel Castellon FNP [facility] 11/27/22 Office Visit Jefferson Witt MD [facility] 11/12/22 Office Visit Jefferson Witt MD [facility] 10/30/22 Office Visit Rosette Contreras PA [facility] 09/10/22 Office Visit Jefferson Witt MD [facility] 08/07/22 Office Visit Jefferson Witt MD [facility] 06/04/22 Office Visit Rosette Contreras PA [facility] 05/08/22 Office Visit Jefferson Witt MD [facility] 02/05/22 Office Visit Jefferson Witt MD [facility] Showing recent visits within past 540 days with a meds authorizing provider and meeting all other requirements Future Appointments Date Type Provider Dept 05/14/23 Appointment Jefferson Witt MD [facility] Showing future appointments within next 150 days with a meds authorizing provider and meeting all other requirements [facility]
[2024-05-12 10:51] LABS: Anion Gap 12.8 mEq/L (5.0-15.0); Magnesium 2.3 mg/dL (1.6-2.4); Potassium 5.8 mEq/L (3.5-5.1)
--- NOTE | 2024-05-12 11:03 | EDPHYS ---
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 09:45 Patient sent in by PCP after potassium as outpatient showed 6.2. 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 States would not be here if she was not told to come for potassium recheck. Patient does not have history of hyperkalemia. No medication changes. She is actually on diuretics. Denies any chest pain or shortness of breath. No vomiting.. Onset: The symptoms/episode began/occurred at an unknown time. Severity of symptoms: At their worst the symptoms were mild in the emergency department the symptoms are unchanged. The patient has not experienced similar symptoms in the past. Historical: - Allergies: 09:20 Morphine; iw 09:20 Sulfa (Sulfonamide Antibiotics); iw 09:20 TETRACYCLINES; iw - PMHx: 09:20 Chronic obstructive lung disease; diabetes mellitus; Hypertensive disorder; iw - PSHx: 09:20 back; Cholecystectomy; section; foot sx; hernia; hysterectomy; iw - Immunization history:: Client reports receiving the 2nd dose of the Covid vaccine. - Infectious Disease History:: Denies. - Family history:: not pertinent. - Hospitalizations: : No recent hospitalization is reported. - Social history:: Smoking status: unknown. ROS: 09:45 Constitutional: Negative for fever, chills, and weight loss, Cardiovascular: Negative rn for chest pain, palpitations, and edema, Respiratory: Negative for shortness of breath, cough, wheezing, and pleuritic chest pain, Abdomen/GI: Negative for abdominal pain, nausea, vomiting, diarrhea, and constipation, MS/Extremity: Negative for injury and deformity, Neuro: Negative for headache, weakness, numbness, tingling, and seizure, Exam: 09:45 Constitutional: This is a well developed, well nourished patient who is awake, alert, rn eating a fig Mix Head/Face: Normocephalic, atraumatic. Cardiovascular: Regular rate and rhythm. No pulse deficits. Respiratory: Speaking full sentences, unlabored MS/ Extremity: Pulses equal, no cyanosis. Nonpitting edema bilateral lower extremities Neuro: Awake and alert, GCS 15 11:39 ECG was reviewed by the Attending Physician. rn Vital Signs: 09:23 BP 118 / 70; Pulse 92; Resp 18; Temp 97.6; Pulse Ox 95% on R/A; Weight 112.04 kg; iw Height 5 ft. 5 in. ; Pain 0/10; 10:32 BP 98 / 60; Pulse 77; Pulse Ox 93% on R/A; Pain 0/10; tm6 11:17 BP 110 / 63; Pulse 78; Pulse Ox 93% on R/A; MAP 78 mmHg; Pain 0/10; tm6 12:56 BP 116 / 59; Pulse 77; Resp 14; Pulse Ox 95% on R/A; Pain 0/10; tm6 14:18 BP 116 / 59; Pulse 77; Resp 16; Pulse Ox 95% on R/A; MAP 73 mmHg; Pain 0/10; tm6 09:23 Body Mass Index 41.10 (112.04 kg, 165.1 cm) iw 09:23 Pain Scale: Adult iw 10:32 Pain Scale: Adult tm6 11:17 Pain Scale: Adult tm6 12:56 Pain Scale: Adult tm6 14:18 Pain Scale: Adult tm6 MDM: 09:15 Patient medically screened. rn 11:01 Differential Diagnosis Metabolic disturbance, acute renal failure, medication side rn effect, spurious lab result. Data reviewed: vital signs, nurses notes, lab test result(s), EKG, and as a result, I will admit patient. Consideration of Admission/Observation Patient was admitted/placed on observation. Escalation of care including admission/observation considered. Care significantly affected by the following chronic conditions: Diabetes, Hypertension. Counseling: I had a detailed discussion with the patient and/or guardian regarding the historical points, exam findings, and any diagnostic results supporting the discharge/admit diagnosis, lab results, radiology results, the need for further work-up and treatment in the hospital. 05/12 09:23 Order name: Basic Metabolic Panel; Complete Time: 10:56 rn 05/12 09:23 Order name: Magnesium; Complete Time: 10:56 rn 05/12 12:13 Order name: Urinalysis w/ reflexes EDMS 05/12 12:13 Order name: Basic Metabolic Panel EDMS 05/12 12:13 Order name: Basic Metabolic Panel EDMS 05/12 12:13 Order name: CBC with Automated Diff EDMS 05/12 12:13 Order name: CBC with Automated Diff EDMS 05/12 12:13 Order name: Magnesium EDMS 05/12 12:13 Order name: Magnesium EDMS 05/12 12:13 Order name: Phosphorus EDMS 05/12 12:13 Order name: Phosphorus EDMS 05/12 12:13 Order name: Thyroid Stimulating Hormone EDMS 05/12 12:13 Order name: Thyroid Stimulating Hormone EDMS 05/12 12:12 Order name: CONS Physician Consult EDMS 05/12 12:13 Order name: Patient Safety Orders EDMS 05/12 09:23 Order name: IV Start; Complete Time: 10:30 rn 05/12 09:23 Order name: EKG - Nurse/Tech; Complete Time: 10:18 rn EC:39 Rate is 82 beats/min. Rhythm is regular. QRS [place] is Normal. NV interval is normal. QRS rn interval is normal. QT interval is normal. No Q waves. T waves are Normal. No ST changes noted. Clinical impression: NSR w/ Non-specific ST/T Changes. Interpreted by me. Reviewed by me. Administered Medications: 11:17 Drug: NS 0.9% IV 500 ml IV at bolus once Route: IV; Rate: bolus; Site: right tm6 antecubital; 12:54 Follow up: Response: No adverse reaction; IV Status: Infusion continued; IV Intake: tm6 500ml 11:18 Drug: Insulin Regular Human Sub-Q 5 units Sub-Q once {Co-Signature: ph (Kelsey Campos tm6 RN).} Route: Sub-Q; Site: abdomen; 12:55 Follow up: Response: No adverse reaction tm6 Disposition Summary: 05/12/24 11:02 Hospitalization Ordered Notes: Hospitalization Status: Observation rn Provider: Devang Bahena rn Location: Telemetry/MedSur (observation) rn Condition: Stable rn Problem: new rn Symptoms: have improved rn Bed/Room Type: Standard rn Room Assignment: 217(05/12/24 12:44) bc6 Diagnosis - Hyperkalemia rn - Acute kidney failure, unspecified rn - Muscle weakness (generalized) rn Forms: - Medication Reconciliation Form rn - SBAR form rn - Leadership Thank You Letter rn Signatures: Dispatcher [employer] EDMS Pinky Sterling, RN Chris Paz MD MD rn Carowatson, Breana bc6 Masterson, Tawney, RN RN tm6 Hall, Patricia RN ph Corrections: (The following items were deleted from the chart) 09: 09:23 BASIC METABOLIC PANEL+C.LAB.BRZ ordered. EDMS EDMS 09:23 09:23 MAGNESIUM+C.LAB.BRZ ordered. EDMS EDMS 12:44 11:02 rn tona6
--- NOTE | 2024-05-12 11:03 | ER ---
Nurse's Notes [facility] Name: Jose Edmond Age: 63 yrs Sex: Female : 1960 Arrival Date: 05/12/2024 Time: 09:12 Bed 6 Private MD: Diagnosis: Hyperkalemia;Acute kidney failure, unspecified;Muscle weakness (generalized) Presentation: 05/12 09:20 Chief complaint: Patient states: was sent by PCP for potassium level of 6.2 and they iw could not get an EKG done in office. Coronavirus screen: At this time, the client does not indicate any symptoms associated with coronavirus-19. Ebola Screen: No symptoms or risks identified at this time. Risk Assessment: Do you want to hurt yourself or someone else? Patient reports no desire to harm self or others. Onset of symptoms was May 12, 2024. 09:20 Method Of Arrival: Wheelchair iw 09:20 Acuity: MAYRA 3 iw 14:19 Initial Sepsis Screen: Does the patient meet any 2 criteria? No. Patient's initial tm6 sepsis screen is negative. Does the patient have a suspected source of infection? No. Patient's initial sepsis screen is negative. Historical: - Allergies: 09:20 Morphine; iw 09:20 Sulfa (Sulfonamide Antibiotics); iw 09:20 TETRACYCLINES; iw - PMHx: 09:20 Chronic obstructive lung disease; diabetes mellitus; Hypertensive disorder; iw - PSHx: 09:20 back; Cholecystectomy; section; foot sx; hernia; hysterectomy; iw - Immunization history:: Client reports receiving the 2nd dose of the Covid vaccine. - Infectious Disease History:: Denies. - Family history:: not pertinent. - Hospitalizations: : No recent hospitalization is reported. - Social history:: Smoking status: unknown. Screenin:33 [facility] ED Fall Risk Assessment (Adult) History of falling in the last 3 months, tm6 including since admission No falls in past 3 months (0 pts) Confusion or Disorientation No (0 pts) Intoxicated or Sedated No (0 pts) Impaired Gait Yes (1 pt) Mobility Assist Device Used Yes (1 pt) Altered Elimination No (0 pt) Score/Fall Risk Level 0 - 2 = Low Risk Oriented to surroundings, Maintained a safe environment, Educated pt \T\ family on fall prevention, incl call for assistance when getting out of bed. Abuse screen: Denies threats or abuse. Denies injuries from another. Nutritional screening: No deficits noted. Tuberculosis screening: No symptoms or risk factors identified. Assessment: 10:33 General: Appears in no apparent distress. Behavior is calm, cooperative, drowsy, tm6 patient reported taking clonazepam prior to coming to ER and feels very drowsy. Pain: Denies pain. Neuro: Level of Consciousness is awake, alert, obeys commands, Oriented to person, place, time, situation. Cardiovascular: Patient's skin is warm and dry. Rhythm is sinus rhythm. Respiratory: Airway is patent Respiratory effort is even, unlabored, Respiratory pattern is regular, symmetrical. GI: No signs and/or symptoms were reported involving the gastrointestinal system. Abdomen is round. : No signs and/or symptoms were reported regarding the genitourinary system. EENT: No signs and/or symptoms were reported regarding the EENT system. Derm: No signs and/or symptoms reported regarding the dermatologic system. Musculoskeletal: No signs and/or symptoms reported regarding the musculoskeletal system. 11:17 Reassessment: Patient and/or family updated on plan of care and expected duration. Pain tm6 level reassessed. Patient is alert, oriented x 3, equal unlabored respirations, skin warm/dry/pink. 13:02 Reassessment: Report faxed to 2nd floor. 14:19 Reassessment: Patient and/or family updated on plan of care and expected duration. Pain tm6 level reassessed. Patient is alert, oriented x 3, equal unlabored respirations, skin warm/dry/pink. Vital Signs: 09:23 BP 118 / 70; Pulse 92; Resp 18; Temp 97.6; Pulse Ox 95% on R/A; Weight 112.04 kg; iw Height 5 ft. 5 in. ; Pain 0/10; 10:32 BP 98 / 60; Pulse 77; Pulse Ox 93% on R/A; Pain 0/10; tm6 11:17 BP 110 / 63; Pulse 78; Pulse Ox 93% on R/A; MAP 78 mmHg; Pain 0/10; tm6 12:56 BP 116 / 59; Pulse 77; Resp 14; Pulse Ox 95% on R/A; Pain 0/10; tm6 14:18 BP 116 / 59; Pulse 77; Resp 16; Pulse Ox 95% on R/A; MAP 73 mmHg; Pain 0/10; tm6 09:23 Body Mass Index 41.10 (112.04 kg, 165.1 cm) iw 09:23 Pain Scale: Adult iw 10:32 Pain Scale: Adult tm6 11:17 Pain Scale: Adult tm6 12:56 Pain Scale: Adult tm6 14:18 Pain Scale: Adult tm6 ED Course: 09:15 Patient arrived in ED. mr 09:15 Chris Krueger MD is Attending Physician. rn 09:20 Triage completed. iw 09:21 Arm band placed on. iw 10:06 Chip De Souza, CASTILLO is Primary Nurse. tm6 10:18 EKG done, by ED staff, reviewed by Chris Krueger MD. tm6 10:30 Magnesium Sent. tm6 10:30 Basic Metabolic Panel Sent. tm6 10:30 Inserted saline lock: 20 gauge in right antecubital area, using aseptic technique. tm6 Blood collected. Flushed with 10 mL NS. 10:33 Patient has correct armband on for positive identification. Bed in low position. Call tm6 light in reach. Side rails up X2. Provided Education on: use of call licea. Client placed on continuous cardiac and pulse oximetry monitoring. NIBP monitoring applied. youth nutritional monitor on. Pulse ox on. NIBP on. Noise minimized. Lights dimmed. Pillow given. 11:01 Devang Bahena is Hospitalizing Provider. rn 12:10 1210 CM met with and her Wes at the bedside in the ED exam ane room. Patient identified by name and . Demographic sheet confirmed. Patient states she lives with her Wes in a ground floor apartment. She reports that prior to admission, she has had difficulty walking and needs assistance for ADLs from her . She states for example, she dress herself if the clothing is a dress, but needs help with pants and can shower on her own, but needs assistance entering the shower. She explains that she has had difficulty walking ever since her previous left foot surgery about 1.5 years previously. DME in the home includes a walker, wheelchair, shower chair, and raised toilet seat. No HH, home oxygen or other medical services at this time. No MPOA in place and PCP is Dr. Tayla Deep Dagoberto. Her preferred plan is to return home upon discharge and states Wes will transport her home. 14:19 No provider procedures requiring assistance completed. Patient admitted, IV remains in tm6 place. Administered Medications: 11:17 Drug: NS 0.9% IV 500 ml IV at bolus once Route: IV; Rate: bolus; Site: right tm6 antecubital; 12:54 Follow up: Response: No adverse reaction; IV Status: Infusion continued; IV Intake: tm6 500ml 11:18 Drug: Insulin Regular Human Sub-Q 5 units Sub-Q once {Co-Signature: ph (Kelsey Campos 6 RN).} Route: Sub-Q; Site: abdomen; 12:55 Follow up: Response: No adverse reaction tm6 Medication: 10:33 VIS not applicable for this client. tm6 Intake: 12:54 IV: 500ml; Total: 500ml. tm6 Outcome: 11:02 Decision to Hospitalize by Provider. rn 14:19 Admitted to Med/surg accompanied by nurse, via stretcher, with chart, tm6 14:19 Condition: stable 14:19 Instructed on the need for admit, 14:19 Patient left the ED. tm6 Signatures: Steph Ye, Reg Reg mr Pinky Sterling, RN Chris Paz MD MD rn Hall, Patricia, RN RN Chip De Souza RN RN [facility] Yanique Arredondo RN RN ane Hall, Patricia RN ph Corrections: (The following items were deleted from the chart) 09:24 09:23 Pulse 92bpm; Resp 18bpm; Pulse Ox 95% RA; Temp 97.6F; 112.04 kg; Height 5 ft. 5 iw in.; BMI: 41.1; Pain 0/10, Adult; iw
[2024-05-12] MEDS ORDERED: INSULIN REGULAR (HUMAN) 100 UNIT/ML ONE (11:12)
[2024-05-12] MEDS ORDERED: NA CHLORIDE 0.9% 500 ML ONE (11:13)
--- NOTE | 2024-05-12 11:29 | P.HP ---
Certification for Inpatient Patient admitted to: Observation With expected LOS: <2 Midnights Patient will require the following post-hospital care: None Practitioner: I am a practitioner with admitting privileges, knowledge of patient current condition, hospital course, and medical plan of care. Services: Services provided to patient in accordance with Admission requirements found in Title 42 Section 412.3 of the Code of Federal Regulations <Meagan Oneil - Last Filed: 05/12/24 12:12> Patient History Date of Service: 05/12/24 Primary Care Provider: Dagoberto Reason for admission: electrolyte derangement with ESPERANZA History of Present Illness: Ms. Edmond is a 63-year-old female with a past medical history of diabetes, hypertension, hyperlipidemia, COPD, glaucoma, and diabetes. She was sent for admission from her PCP, Dr. Arenas, for a potassium value of 6.2. On evaluation in the emergency department her potassium is 5.8 however she is also noted to have an ESPERANZA with a creatinine of 1.78. Her creatinine baseline is 1.1. Presently she is asymptomatic and has no EKG changes. We are put her in the hospital for observation for evaluation and treatment of hyperkalemia and ESPERANZA with a consultation to nephrology. Home medications list reviewed: Yes (pt states no changes since last admit) - Past Medical/Surgical History Diabetic: Yes -: Pancreatitis -: DM -: HTN -: anxiety -: Kidney stones -: HTN -: COPD -: glaucoma -: cholecystectomy -: C-sections -: Back -: Hysterectomy Psychosocial/ Personal History: Patient lives at home with family - Family History Father -: Heart disease, Hypertension, Diabetes Mother -: Heart disease, Hypertension Sister -: Cancer - Social History Alcohol use: No CD- Drugs: Yes Caffeine use: Yes Place of Residence: Home <Meagan Oneil - Last Filed: 05/12/24 12:12> Date of Service: 05/12/24 <vasu cho - Last Filed: 05/12/24 17:14> Allergies Sulfa (Sulfonamide Antibiotics) Allergy (Verified 07/14/22 13:21) Nausea/Vomiting sulfamethoxazole [From Bactrim] Allergy (Verified 07/14/22 13:21) Nausea/Vomiting tetracycline Allergy (Verified 07/14/22 13:21) Nausea/Vomiting trimethoprim [From Bactrim] Allergy (Verified 07/14/22 13:21) Nausea/Vomiting morphine Adverse Reaction (Verified 09/23/23 16:50) hallucinations Home Medications: Furosemide 1 tab PO DAILY 07/24/22 Gabapentin 1 tab PO QID 07/24/22 Hydrocodone Bit/Acetaminophen [Hydrocodon-Acetaminoph 7.5-325] 1 tab PO TID PRN 07/24/22 Spironolactone 1 tab PO BID 07/24/22 Venlafaxine HCl [Venlafaxine HCl ER] 1 tab PO DAILY 07/24/22 clonazePAM [Klonopin] 1 mg PO TID PRN 07/24/22 Loxapine [Adasuve] 100 mg PO BEDTIME 08/14/22 Tizanidine [Zanaflex*] 4 mg PO Q8HR PRN 08/14/22 carvediloL [Coreg*] 6.25 mg PO BID #60 tab 08/29/22 Amlodipine [Norvasc*] 10 mg PO DAILY 09/22/23 Lisinopril [Zestril] 40 mg PO DAILY 09/22/23 Aspirin [Aspirin EC 81 MG] 1 tab PO DAILY 02/12/24 Bimatoprost [[place]umigan Opthalmic Drops*] 5 ml OP BEDTIME 02/12/24 Empagliflozin [Jardiance] 1 tab PO DAILY 02/12/24 Fenofibrate 54 mg PO DAILY 02/12/24 Insulin Degludec [Tresiba Flextouch U-200] 72 units SQ BID 02/12/24 Metformin ER [Glucophage ER*] 1,000 mg PO BID 02/12/24 Venlafaxine HCl [Venlafaxine HCl ER] 37.5 mg PO DAILY 02/12/24 Hydrocodone 10/APAP 325 [[place] 10/325] 1 tab PO Q6H PRN #20 tab 02/13/24 Review of Systems 10-point ROS is otherwise unremarkable General: Unremarkable Eyes: Unremarkable ENT: Unremarkable Respiratory: Unremarkable Cardiovascular: Unremarkable Gastrointestinal: Unremarkable Genitourinary: Unremarkable Integumentary: Unremarkable Neurological: Unremarkable Lymphatics: Unremarkable <Oneil,Meagan Jaguar - Last Filed: 05/12/24 12:12> Physical Examination - Physical Exam General: Oriented x3, Cooperative, Disheveled, Obese, Other (states she is tired today as she didn't sleep well and hasn't had her coffee) HEENT: Atraumatic, Normocephalic Neck: Supple Respiratory: Normal air movement Cardiovascular: Normal pulses, Regular rate/rhythm, Normal S1 S2 Capillary refill: <2 Seconds Gastrointestinal: Soft and benign Musculoskeletal: No clubbing, No swelling Integumentary: No rashes, Other (pallor) Neurological: Normal speech, Normal tone, Normal affect Lymphatics: No axilla or inguinal lymphadenopathy External genitalia: Deferred Rectal: Deferred - Studies Laboratory Data (last 24 hrs) 05/12/24 10:29 Sodium 131 L Potassium 5.8 H BUN 39 H Creatinine 1.78 H Glucose 402 H* Magnesium 2.3 <Meagan Oneil - Last Filed: 05/12/24 12:12> - Studies Laboratory Data (last 24 hrs) 05/12/24 10:29 Sodium 131 L Potassium 5.8 H BUN 39 H Creatinine 1.78 H Glucose 402 H* Magnesium 2.3 <vasu cho - Last Filed: 05/12/24 17:14> Assessment and Plan - Plan ESPERANZA with electrolyte disturbance (K reported from Dr. Arenas's office at 6.2, repeat in ED 5.8 without ekg changes) Chem-7 Q4h x 1 Patient given 1 dose insulin in the ED for blood sugar of 402 g/dL Hold metformin asa 81mg po daily Consult Nephrology Diabetes with hyperglycemia hold metformin 2nd to ESPERANZA Chem 7 q4h x 1 FSBS qACHS Jardiance 1 po daily Insulin degludec 72u sc BID ADA diet HTN/HLD lasix 20mg po daily Fenofibrate 54mg po daily COPD albuterol 2.5mg nebs q6h prn Anxiety Venlafaxine Glaucoma Lumigan gtts at HS Chronic pain hydrocodone 10/325 po q6h prn VTE/GI prophylaxis Heparin/Protonix Discharge Plan: Home Plan to discharge in: 48 Hours - Advance Directives Does patient have a Living Will: No Does patient have a Durable POA for Healthcare: No - Code Status/Comfort Care Code Status Assessed: Yes (Full) <Meagan Oneil - Last Filed: 05/12/24 12:12> - Plan Patient seen and examined, plan of care discussed with Ms. Oneil. Patient currently has no new complain. She is being admitted for hyperkalemia. Hyperkalemia likely secondary to spironolactone use. Give 1 dose of Lokelma P.o. Lasix. Resume home dose long-acting insulin given severe hyperglycemia. Recheck potassium level. Monitor BMP Nephrology consult for ESPERANZA. <vasu cho - Last Filed: 05/12/24 17:14>
[2024-05-12] MEDS ORDERED: ALBUTEROL 2.5 MG/3 ML NEB SOL NEB PRN (12:07)
[2024-05-12] MEDS ORDERED: ONDANSETRON 4 MG/2 ML VIAL IV PRN (12:07)
[2024-05-12 15:21] VITALS: O2SAT 95
[2024-05-12 15:29] VITALS: BMI 41.1
[2024-05-12] MEDS: HYDROCODONE/APAP 10/325 TAB PO PRN (17:37)
[2024-05-12] MEDS: HEPARIN 5000 UNIT/ML 1 ML VIAL SQ SCH (17:38)
[2024-05-12] MEDS: SODIUM ZIRCONIUM CYCLOSILICATE 10 GM/PKT PO ONE (18:59)
[2024-05-12] MEDS: HOME MED 1 EA UNK (Insulin Degludec [Tresiba Flextouch U-200] 200 UNIT/ML Insuln.Pen) SQ SCH (20:17)
[2024-05-12] MEDS: FLU (Fluarix Triv) TS24-25(6MOS UP)/PF 45 MCG/0.5 ML Syringe IM ONE (20:18)
[2024-05-12] MEDS: BIMATOPROST OPTH SCH (20:18)
[2024-05-13 06:14] LABS: Absolute Basophils 0.1 K/uL (0-0.5); Absolute Eosinophils 0.5 K/uL (0-0.5); Absolute Lymphocytes (CBC) 3.8 K/uL (0.7-4.9); Absolute Monocytes 0.7 K/uL (0.1-1.3); Absolute Neutrophil 5.4 K/uL (1.8-8.0); Eosinophils % 4.6 % (0-4.4); Hematocrit 33.1 % (36.0-45.0); Hemoglobin 10.6 g/dL (12.0-15.0); Lymphocytes % 36.4 % (15.3-44.8); MCH 25.4 pg (27.0-35.0); MCHC 32.1 g/dL (32.0-36.0); MPV 9.5 fL (7.6-11.3); Monocytes % 6.3 % (3.3-12.3); Neutrophils % 51.7 % (41.7-73.7); Platelets 309 thou/uL (152-406); RBC Red Blood Cell Count 4.19 M/uL (3.86-4.86)
[2024-05-13 06:41] LABS: Anion Gap 12.5 mEq/L (5.0-15.0); Magnesium 2.4 mg/dL (1.6-2.4); Potassium 5.5 mEq/L (3.5-5.1); Thyroid Stimulating Hormone 1.93 uIU/mL (0.358-3.740)
[2024-05-13] MEDS: ASPIRIN EC 81 MG TAB PO SCH (08:43)
[2024-05-13] MEDS: VENLAFAXINE HCL XR 75 MG CAP PO SCH (08:44)
[2024-05-13] MEDS: VENLAFAXINE HCL XR 37.5MG CAP PO SCH (08:44)
[2024-05-13] MEDS: HOME MED 1 EA UNK (Empagliflozin [Jardiance] 10 MG Tablet) PO SCH (08:44)
[2024-05-13] MEDS: HOME MED 1 EA UNK (Fenofibrate [Fenofibrate] 50 MG Capsule) PO SCH (08:45)
[2024-05-13] MEDS: FUROSEMIDE 40 MG TABLET PO SCH (08:46)
--- NOTE | 2024-05-13 10:40 | P.PN ---
Subjective Date of Service: 05/13/24 Primary Care Provider: Dagoberto Chief Complaint: electrolyte derangement with ESPERANZA Subjective: Improving (pt feeling better after getting some sleep. Potassium is coming down but creatinine increased to 2.0. Pt states she has been using a lot of aleve and advil. Discussed avoiding NSAIDS) Review of Systems 10-point ROS is otherwise unremarkable General: Unremarkable Eyes: Unremarkable ENT: Unremarkable Respiratory: Unremarkable Cardiovascular: Unremarkable Gastrointestinal: Unremarkable Genitourinary: Unremarkable Musculoskeletal: Unremarkable Integumentary: Unremarkable Neurological: Unremarkable Lymphatics: Unremarkable Physical Examination - Vital Signs Temperature: 97.0 F Blood Pressure: 130/67 Pulse: 90 Respirations: 17 Pulse Ox (%): 92 - Physical Exam General: Alert, In no apparent distress, Oriented x3 HEENT: Atraumatic, Normocephalic Neck: Supple Respiratory: Normal air movement Cardiovascular: No edema, Normal pulses, Regular rate/rhythm Capillary refill: <2 Seconds Gastrointestinal: Soft and benign Musculoskeletal: No clubbing, No swelling Integumentary: No rashes Neurological: Normal speech, Normal affect, Abnormal tone Lymphatics: No axilla or inguinal lymphadenopathy External genitalia: Deferred Rectal: Deferred - Studies Laboratory Data (last 24 hrs) 05/12/24 10:29 Sodium 131 L Potassium 5.8 H BUN 39 H Creatinine 1.78 H Glucose 402 H* Magnesium 2.3 Assessment And Plan - Plan ESPERANZA with electrolyte disturbance (K reported from Dr. Arenas's office at 6.2, repeat in ED 5.8 without ekg changes) Chem-7 Q4h x 1 Patient given 1 dose insulin in the ED for blood sugar of 402 g/dL Hold metformin asa 81mg po daily Consult Nephrology avoid NSAIDS Diabetes with hyperglycemia hold metformin 2nd to ESPERANZA Chem 7 q4h x 1 FSBS qACHS Jardiance 1 po daily Insulin degludec 72u sc BID ADA diet HTN/HLD lasix 20mg po daily Fenofibrate 54mg po daily COPD albuterol 2.5mg nebs q6h prn Anxiety Venlafaxine Glaucoma Lumigan gtts at HS Chronic pain hydrocodone 10/325 po q6h prn 05/13/24 potassium down to 5.5 but creatinine up to 2.0 500ml bolus of NS avoid NSAIDS (pt reports increase in recent NSAID-aleve, advil use) continue to monitor VTE/GI prophylaxis Heparin/Protonix
[2024-05-13] MEDS: NA CHLORIDE 0.9% 1,000 ML IV SCH ×2 (11:26→12:15)
[2024-05-13] MEDS: NA CHLORIDE 0.9% 500 ML IV ONE ×2 (11:35→18:07)
--- NOTE | 2024-05-13 12:17 | P.CNS ---
Date of Consult: 05/13/24 Reason for Consult: ESPERANZA, hyperkalemia Requesting Physician: vasu cho Primary Care Provider: Dagoberto Chief Complaint: electrolyte derangement with ESPERANZA History of Present Illness: Pt is a 63-year-old female with a past medical history of chronic Type II diabetes with unspecified complications, obesity, chronic hypertension on several agents, hyperlipidemia, and other who was sent for admission from her PC P, Dr. Arenas, for a potassium value of 6.2. On evaluation in the emergency department her potassium was still elevated but lower at 5.8 however she is also noted to have an ESPERANZA with a creatinine of 1.78 for which renal service is consulted. Pt acknowledges some soft BP at times, she is on Lisopril, possible Spironolactone as well and also on Jardiance. Allergies Sulfa (Sulfonamide Antibiotics) Allergy (Verified 07/14/22 13:21) Nausea/Vomiting sulfamethoxazole [From Bactrim] Allergy (Verified 07/14/22 13:21) Nausea/Vomiting tetracycline Allergy (Verified 07/14/22 13:21) Nausea/Vomiting trimethoprim [From Bactrim] Allergy (Verified 07/14/22 13:21) Nausea/Vomiting morphine Adverse Reaction (Verified 09/23/23 16:50) hallucinations Home Medications: Furosemide 1 tab PO DAILY 07/24/22 Gabapentin 1 tab PO QID 07/24/22 Hydrocodone Bit/Acetaminophen [Hydrocodon-Acetaminoph 7.5-325] 1 tab PO TID PRN 07/24/22 Venlafaxine HCl [Venlafaxine HCl ER] 1 tab PO DAILY 07/24/22 clonazePAM [Klonopin] 1 mg PO TID PRN 07/24/22 Loxapine [Adasuve] 100 mg PO BEDTIME 08/14/22 Tizanidine [Zanaflex*] 4 mg PO Q8HR PRN 08/14/22 carvediloL [Coreg*] 6.25 mg PO BID #60 tab 08/29/22 Amlodipine [Norvasc*] 10 mg PO DAILY 09/22/23 Lisinopril [Zestril] 40 mg PO DAILY 09/22/23 Aspirin [Aspirin EC 81 MG] 1 tab PO DAILY 02/12/24 Bimatoprost [[place] Opthalmic Drops*] 5 ml OP BEDTIME 02/12/24 Empagliflozin [Jardiance] 1 tab PO DAILY 02/12/24 Fenofibrate 54 mg PO DAILY 02/12/24 Insulin Degludec [Tresiba Flextouch U-200] 72 units SQ BID 02/12/24 Metformin ER [Glucophage ER*] 1,000 mg PO BID 02/12/24 Venlafaxine HCl [Venlafaxine HCl ER] 37.5 mg PO DAILY 02/12/24 Hydrocodone 10/APAP 325 [[place] 10/325] 1 tab PO Q6H PRN #20 tab 02/13/24 - Past Medical/Surgical History Diabetic: Yes -: Pancreatitis -: DM -: HTN -: anxiety -: Kidney stones -: HTN -: COPD -: glaucoma -: cholecystectomy -: C-sections -: Back -: Hysterectomy Psychosocial/ Personal History: Patient lives at home with family - Family History Father Medical History: Heart disease, Hypertension, Diabetes Mother Medical History: Heart disease, Hypertension Sister Medical History: Cancer - Social History Smoking Status: Unknown if ever smoked Alcohol use: No CD- Drugs: Yes Caffeine use: Yes Place of Residence: Home Review of Systems General: Unremarkable Eyes: Unremarkable ENT: Unremarkable Respiratory: Unremarkable Cardiovascular: As per HPI Gastrointestinal: Unremarkable Musculoskeletal: Unremarkable Integumentary: Unremarkable Neurological: Unremarkable Physical Examination Temp Pulse Resp BP Pulse Ox 97.0 F 90 17 130/67 92 05/13/24 10:39 05/13/24 10:39 05/13/24 10:39 05/13/24 10:39 05/13/24 10:39 General: Alert, In no apparent distress, Cooperative HEENT: Atraumatic, Normocephalic Neck: Supple Respiratory: Clear to auscultation bilaterally, Normal air movement Cardiovascular: Regular rate/rhythm, Other (mild distal edema) Gastrointestinal: Soft and benign, No tenderness Musculoskeletal: No tenderness Integumentary: No rashes Neurological: Normal speech, Normal tone, Normal affect Conclusions/Impression: A/P) 1. Stage II ESPERANZA on possible underlying CKD NOS, in the setting of vol depletion, relative hypotension, concurrent ACEI/diuretic use Renal imaging not required as CT scan from earlier this year reviewed. 2. Cr level did not downward trend on initial repeat labs, cont IVF hydration for another 1L, hold offending meds (Lisinopril, Jardiance, other) 3. Hyperkalemia in the setting of ESPERANZA, ACEi use, elevated BG, pt also reports possibly spironolactone use. S/p Mason, has not had a BM, cont IVF, recheck level 4. Type II DM with unspecified complications -elevated BG, large insulin requirement, would benefit from GLP-1 RA therapy, SGTL2i agents can increase risk for vol depletion/other and effects on A1c modest. Will check spot urine 5. Calculus of kidney, smaller stones in the calyces, reported, no current symptoms, check UA, increase hydration, avoid Ca supplements, cut back on artificially sweetened beverages, OP f/u on stone prevention
--- NOTE | 2024-05-13 12:49 | RAD REPORT ---
EXAMINATION: US RENAL CLINICAL INDICATION: Acute renal failure TECHNIQUE: Real-time ultrasonography of the abdomen was performed. COMPARISON: CT abdomen February 2024 FINDINGS: Right kidney measures 11 cm with a normal echotexture. Left kidney measures 10 cm with normal echotexture. No hydronephrosis. Small bilateral renal calculi No gross abnormality bladder. IMPRESSION: Small bilateral nonobstructing calculi
[2024-05-13 13:37] LABS: Specific Gravity 1.005 (1.005-1.030); Sqamous Epithelial <5 /HPF (None Seen); Transitional Epithelial <5 /HPF (None Seen); Urine Bacteria None Seen /HPF (<20); Urine Bilirubin NEGATIVE (Negative); Urine Blood Negative (Negative); Urine Clarity Clear (Clear); Urine Color Colorless (Yellow); Urine Culture Reflex Order NOT NEEDED; Urine Glucose 4+ (Negative); Urine Ketones NEGATIVE (Negative); Urine Microscopic Reflex YN ORDER UMIC; Urine Mucus Slight /HPF (None Seen); Urine Nitrite NEGATIVE (Negative); Urine Protein NEGATIVE (Negative); Urine RBC <5 /HPF (None Seen); Urine Urobilinogen Normal (Normal); Urine WBC <5 /HPF (<5)
--- NOTE | 2024-05-13 14:09 | EKG ---
Test Date: 2024-05-12 Test Time: 10:15:11 [employer]: LOUANN MEASUREMENT RESULTS: Intervals: Rate: 82 MD: 166 QRSD: 82 QT: 360 QTc: 420 [place]: P: 59 MD: 166 QRS: 18 T: 102 INTERPRETIVE STATEMENTS: Normal sinus rhythm Low voltage QRS Nonspecific ST and T wave abnormality Abnormal ECG Compared to ECG 09/22/2023 10:37:05 Low QRS voltage now present ST (T wave) deviation now present Electronically Signed On 05-13-24 14:07:24 CDT by Toño Eastman
[2024-05-13] MEDS: FLU (Fluarix Triv) TS24-25(6MOS UP)/PF 45 MCG/0.5 ML Syringe IM ONE (15:00)
[2024-05-13 16:42] LABS: Anion Gap 15.4 mEq/L (5.0-15.0); Potassium 5.4 mEq/L (3.5-5.1)
[2024-05-13] MEDS: SODIUM ZIRCONIUM CYCLOSILICATE 10 GM/PKT PO ONE (18:01)
[2024-05-14] MEDS: NA CHLORIDE 0.9% 500 ML ONE (00:10)
[2024-05-14] MEDS: NA CHLORIDE 0.9% 500 ML IV ONE (00:32)
[2024-05-14] MEDS: ACETAMINOPHEN 325 MG TABLET PO PRN (06:12)
[2024-05-14 07:09] LABS: Anion Gap 6.5 mEq/L (5.0-15.0); Potassium 4.5 mEq/L (3.5-5.1)
[2024-05-14] MEDS: CEFTRIAXONE 1,000 MG in NA CHLORIDE 0.9% 50 ML IVPB SCH (08:47)
[2024-05-14 09:06] VITALS: TEMP 98.2
--- NOTE | 2024-05-14 10:21 | P.DS ---
Admission Date: 05/13/24 Discharge Date: 05/14/24 Primary Care Provider: Dagoberto Disposition: ROUTINE DISCHARGE Discharge Condition: GOOD Reason for Admission: electrolyte derangement with ESPERANZA Consultations: Dr. Remy Procedures: none Brief History of Present Illness: Ms. Edmond is a 63-year-old female with a past medical history of diabetes, hypertension, hyperlipidemia, COPD, glaucoma, and diabetes. She was sent for admission from her PCP, Dr. Arenas, for a potassium value of 6.2. On evaluation in the emergency department her potassium is 5.8 however she is also noted to have an ESPERANZA with a creatinine of 1.78. Her creatinine baseline is 1.1. Presently she is asymptomatic and has no EKG changes. We will put her in the hospital for observation for evaluation and treatment of hyperkalemia and ESPERANZA with a consultation to nephrology. Hospital Course: With some hydration and withholding of Spironolactone, Lisinopril, Metformin, and Jardiance, Ms. Edmond is feeling better. Her potassium has trended down from 6.3 to 4.5 and her creatinine is coming down from a max of 2.09 to 1.65 on this mornings evaluation. She will require follow up with her PCP, Dr. Arenas, for medication adjustments. She has not been hypertensive during her hospitalization. We did hold her Metformin and utilized sliding scale insulin while her renal function was impaired. Please hold Metformin and Jardiance but continue to keep FSBS log and continue Tresiba 72u twice daily. Vital Signs/Physical Exam: Temp Pulse Resp BP Pulse Ox 98.2 F 79 16 125/53 L 94 05/14/24 08:00 05/14/24 08:00 05/14/24 08:00 05/14/24 08:00 05/14/24 08:00 General: Alert, In no apparent distress, Oriented x3 HEENT: Atraumatic, Normocephalic Neck: Supple Respiratory: Clear to auscultation bilaterally Cardiovascular: No edema Capillary refill: <2 Seconds Gastrointestinal: Soft and benign Musculoskeletal: No clubbing, No swelling Integumentary: No rashes, No breakdown Neurological: Normal speech, Normal tone Lymphatics: No axilla or inguinal lymphadenopathy External genitalia: Deferred Rectal: Deferred Laboratory Data at Discharge: WBC 10.40 thou/uL (4.3-10.9) 05/13/24 05:53 Hgb 10.6 g/dL (12.0-15.0) L 05/13/24 05:53 Hct 33.1 % (36.0-45.0) L 05/13/24 05:53 Plt Count 309 thou/uL (152-406) 05/13/24 05:53 Sodium 136 mEq/L (136-145) 05/14/24 06:30 Potassium 4.5 mEq/L (3.5-5.1) D 05/14/24 06:30 BUN 46 mg/dL (7-18) H 05/14/24 06:30 Creatinine 1.65 mg/dL (0.55-1.02) H 05/14/24 06:30 Glucose 196 mg/dL (74-106) H 05/14/24 06:30 Phosphorus 5.0 mg/dL (2.5-4.9) H 05/13/24 05:53 Magnesium 2.4 mg/dL (1.6-2.4) 05/13/24 05:53 Home Medications: clonazePAM [Klonopin] 1 mg PO TID PRN 07/24/22 Loxapine [Adasuve] 100 mg PO BEDTIME 08/14/22 carvediloL [Coreg*] 6.25 mg PO BID #60 tab 08/29/22 Fenofibrate 54 mg PO DAILY 02/12/24 Albuterol Sulfate [Albuterol Sulfate Hfa] 2 puff IH QID PRN 05/14/24 Buspirone HCl 7.5 mg PO TID 05/14/24 Furosemide [Lasix] 80 mg PO DAILY #30 tab 05/14/24 Gabapentin 300 mg PO QID 05/14/24 Hydrocodone Bit/Acetaminophen [Hydrocodon-Acetaminoph 7.5-325] 1 tab PO TID PRN 05/14/24 Insulin Degludec [Tresiba] 72 unit SQ BID 10 Days 05/14/24 Ropinirole HCl 2 mg PO BEDTIME 05/14/24 Venlafaxine HCl [Venlafaxine HCl ER] 150 mg PO DAILY 05/14/24 New Medications: Furosemide [Lasix] 80 mg PO DAILY #30 tab Insulin Degludec [Tresiba] 72 unit SQ BID 10 Days Physician Discharge Instructions: With some hydration and withholding of Spironolactone, Lisinopril, Metformin, and Jardiance, Ms. Edmond is feeling better. Her potassium has trended down from 6.2 to 4.5 and her creatinine is coming down from a max of 2.09 to 1.65 on this mornings evaluation. She will require follow up with her PCP, Dr. Arenas, for medication adjustments. She has not been hypertensive during her hospitalization. We did hold her Metformin and utilized sliding scale insulin while her renal function was impaired. Please hold Metformin and Jardiance but continue to keep FSBS log and continue Tresiba 72u twice daily. See Dr. Arenas this week. Please do not restart Lisinopril, Spironolactone, Metformin, or Jardiance. Keep blood pressure log. Log FSBS and continue Tresiba 72u twice daily. New prescriptions: GOAL: Clear understanding of disease process Diet: ADA, low sodium Activity: Fall precautions INSTRUCTIONS: Physician Discharge Instructions: Okay to DC IV and DC home Follow-up with primary care provider in 1 to 2 weeks Follow-up with nephrology in 1 to 2-weeks Please call the inpatient unit for any questions or concerns regarding hospital stay Return to the ER for worsening symptoms Diet: ADA Activity: Fall precautions Followup: Tayla Arenas DO [Primary Care Provider] - 1-2 Weeks Pete Remy [ACTIVE - CAN ADMIT] -
[2024-05-14] MEDS: INSULIN GLARGINE 100 UNIT/ML SQ SCH (12:15)
[2024-05-14] MEDS: clonazePAM 1 MG TAB PO ONE (12:24)
[2024-05-14 13:22] VITALS: BP 119/53
== END 2024-05-14 15:21 | disposition home or self-care (01) | DRG 683 ==
LOC: ER 09:12 → ERHOLD 12:05 → 2ND 12:56 → OBSVTOIN 05-13 17:59
PROVIDERS: ADMIT Internal Medicine; ATTEND Internal Medicine Sleep Medicine
DX: N17.9 Acute kidney failure, unspecified (principal); Z68.41 Body mass index [BMI] 40.0-44.9, adult; E87.5 Hyperkalemia; E66.01 Morbid (severe) obesity due to excess calories; I10 Essential (primary) hypertension; F41.9 Anxiety disorder, unspecified; G89.29 Other chronic pain; E11.65 Type 2 diabetes mellitus with hyperglycemia; N20.0 Calculus of kidney; J44.9 Chronic obstructive pulmonary disease, unspecified; Z88.5 Allergy status to narcotic agent; Z88.2 Allergy status to sulfonamides; Z88.1 Allergy status to other antibiotic agents; Z79.82 Long term (current) use of aspirin; Z79.84 Long term (current) use of oral hypoglycemic drugs; Z90.49 Acquired absence of other specified parts of digestive tract; Z90.710 Acquired absence of both cervix and uterus; Z79.899 Other long term (current) drug therapy
CPT/HCPCS: 36415; 76770; 80048; 81001; 82947; 83735; 84100; 84132; 84443; 85025; 87086; 87088; 93005; 96360; 96361; 96372; 99285; G0378; J0696; J1644; J7030; J7040

== ENCOUNTER 2025-03-08 15:07 | Emergency (ER) | payer OTHER ==
--- OUTSIDE RECORDS SUMMARY | 2025-03-08 15:36 | XMS REPORT | Continuity of Care Document ---
Author Name Unknown Address [address] [place] [address] [facility] Address [address] [place] [address] Care Team Providers Care Potato Picker Name Role Phone Jefferson Witt MD Primary Care Physician [phone] Jefferson Witt Attending Clinician Unavailable BISI CARDOSO Attending Clinician Unavail able GIOVANY ANTOINE Attending Clinician UnavailJEFFERSON Andujar Attending Clinician Unavailable Mira Jacques PA-C Attending Clinician [phone] MIRA JACQUES Attending Clinician Unavailable Robbie Coronado MD Attending Clinician [phone] Doctor Unassigned, [place]immitt Attending Clinician U Paige Shirley LVN Attending Clinician Unavailable Bisi Caceres PA-C Attending Clinician [phone] Unknown, Attending Attending Clinician Unavailab BISI Silva Attending Clinician Unavailable ROBBIE CORONADO Attending Clinician Unavailable CLAIRE ELAM Attending Clinician Unavailable Giovany Antoine MD Attending Clinician [phone] Jefferson Witt MD Attending Clinician [phone] DANIEL CASTELLON Attending Clinician Unavailable OBI-NARA, MONTSE Attending Clinician Unavailab guy CELESTENARA, MONTSE Attending Clinician Unavailab Priti Olivia RN Attending Clinician Unavailable Lab, Ang - Db Attending Clinician Unavailable Doctor Unassigned, Dimmitt Attending Clinician U NORA Godwin Attending Clinician Christopher Morrow MD, Nora Garvin Attending Clinician + ROSETTE CONTRERAS Attending Clinician Unavailable Venkatesh OCONNOR, Ana Attending Clinician [phone] Unknown, Attending Attending Clinician Unavailab ANA Dinh Attending Clinician Unavailable CARLA VELASCO Attending Clinician Unavailable CARLA VELASCO Attending Clinician Unavailable JOSSE LEYVA Attending Clinician Unavailable Po, [facility] Main Attending Clinician Unavailjayson Freire RN, Alana Prabhakar Attending Clinician Kimberly vailable [place] [place] Attending Clinician Unavaila Richard Magana Attending Clinician [phone] RICHARD VIDAL Attending Clinician Unavailable NOEMI WAITE Attending Clinician Unavailable Daniel Silva Attending Clinician +[phone] Claudia Recinos Attending Clinician [phone] Marylou Borrego Attending Clinician UnavailCLAUDIA Shepherd Attending Clinician Unavailable Rosette Markham Attending Clinician + [phone] ION HOBBS Attending Clinician Kimberly vailable RACHELL CHENG Attending Clinician Unavaila RACHELL Boss Attending Clinician Unavaila eri Weems RN, Oleg Leach Attending Clinician UnavailJESUS Smith Attending Clinician Unavailable Jesus Spain MD Attending Clinician [phone] Rachell Cheng MD Attending Clinician + [phone] [facility] Attending Clinician Unavaila ble 2, [facility] Attending Clinician Unavailable DAYLIN MOJICA Attending Clinician Unavailable Daylin Mojica NP Attending Clinician [phone] [facility], [facility] Attending Clinicia n Unavailable ARMINDA VEGA Attending Clinician Unavailable Noemi Christian S Attending Clinician + DILAN LOVE Attending Clinician Unavailjayson Love MD, Dilan Ballesteros Attending Clinician + [phone] MARYLOU GAMINO Attending Clinician Unavailable PRAVEEN SAGE Attending Clinician Unavailable Praveen Shipman Attending Clinician + [phone] True OCONNOR, Brian Rivera Attending Clinician [phone] BRIAN VENTURA Attending Clinician Unavaila ble Only, [facility] Test Attending Clinician Unavailable Mike OCONNOR, Maryam Attending Clinician + [phone] MARYAM BRUCE Attending Clinician Unavailjayson mike Nurse, [facility] Pob Immunization Attending Clinician Unavailable Severo Lara DO Attending Clinician [phone] SEVERO LARA Attending Clinician Unavail able Linda CHONG, Elizabeth Ballesteros Attending Clinician Unavail able CHERYLE SILVA Attending Clinician Unavailable Trever OCONNOR, Cheryle Attending Clinician [phone] Derek ENGAGEMENT MANAGERDoron Attending Clinician +[phone] DORON WEINSTEIN Attending Clinician Unavailjayson Leyva ENGAGEMENT MANAGER, Josse Attending Clinician [phone] Provider, [facility] Attending Clinician Un available Alberto GARCIAPRomi Attending Clinician + [phone] Lia CHONG, Araceli Black Attending Clinician Unavailab JAYASHREE Schmidt Attending Clinician Unavailab Jayashree Schmidt DO Attending Clinician [phone] Attending Clinician Unavailable Bisi Cardoso MD Attending Clinician [phone] Guy Mcclellan RN, Mira Attending Clinician Unavailable , [facility] Echo Room 1 - Attending Clinician Christopher Coronado MD, Robbie Attending Clinician [phone] Visit, Ad[facility] Nurse Attending Clinician Unavailable Gramm ENGAGEMENT MANAGER, Sandy A Attending Clinician [phone] GRAMM, SANDY A Attending Clinician Unavailable Lab, [facility] Fam Pob I Attending Clinician Unavailab guy [facility] Aleks Attending Clinician [phone] Pob1, [facility] Attending Clinician Keila Hill MD Attending Clinician [phone] KEILA DELCID Attending Clinician Unavailable Kim CHONG, Ciara Attending Clinician Unavailable IBSI CARDOSO Admitting Clinician Unavail able Fer, Suma Rashmi Admitting Clinician Unavaila JESUS Arita Admitting Clinician Unavailable JEFFERSON WITT Admitting Clinician Unavailable BRIAN VENTURA.HCam Admitting Clinician Unavaila CHERYLE Zhao Admitting Clinician Unavailable Trever OCONNOR, Cheryle Admitting Clinician [phone] Bisi Cardoso MD Admitting Clinician KEILA DELCID Admitting Clinician Unavailable Payers Payer Name Policy Type Policy Number Effective Date Expirati on Date Source LoginzaA MEDICARE [id number] 2019 00:00:00 [facility] [id number] 2023 00:00:00 MEDICARE PART A \\T\\ B [id number] 2021 00:00:00 2021 00:00:00 [facility] [id number] 2021 00:00:00 2021 00:00:00 Problems Condition Name Condition Details Condition Category Status Onset Date Resolution Date Last Treatment Date Treating Clinician Comments Source Preop cardiovasc ular exam Preop cardiovasc ular exam Disease Active 2023-08 00:00: 00 [facility] Iron deficiency anemia, unspecifie d iron deficiency anemia type Iron deficiency anemia, unspecifie d iron deficiency anemia type Disease Active 11-08 00:00: 00 [facility] Yeast infection of the skin Yeast infection of the skin Disease Active 12-22 00:00: 00 [facility] VERNON (obstructi ve sleep apnea) VERNON (obstructi ve sleep apnea) Disease Active 2021-08 00:00: 00 [facility] Chest pain Chest pain Disease Active 2020-08 0 00:00: 00 [facility] Morbid obesity Morbid obesity Disease Active 2020-08 0 00:00: 00 [facility] Chronic atrial fibrillati on Chronic atrial fibrillati on Disease Active 2020-08 0 00:00: 00 [facility] ICD (implantab le cardiovert er-defibri llator) in place ICD (implantab le cardiovert er-defibri llator) in place Disease Active 2020-08 0 00:00: 00 [facility] Abnormal serum level of lipase Abnormal serum level of lipase Disease Active 2020-08 0 00:00: 00 [facility] Leg edema Leg edema Disease Active 2020-08 00:00: 00 [facility] Calculus of gallbladde r without cholecysti tis without obstructio n Calculus of gallbladde r without cholecysti tis without obstructio n Disease Active 2019-08 00:00: 00 Overview: Formattin g of this note might be different from the original. Added automatic ally from request for surgery [id number] [facility] Neuropathy Neuropathy Disease Active 04-24 00:00: 00 [facility] Bronchitis Bronchitis Disease Active 11-22 00:00: 00 [facility] SOB (shortness of breath) SOB (shortness of breath) Disease Active 11-22 00:00: 00 [facility] Fever in adult Fever in adult Disease Active 11-22 00:00: 00 [facility] Tobacco dependence Tobacco dependence Disease Active 11-22 00:00: 00 [facility] Obesity Obesity Disease Active 04-23 00:00: 00 [facility] Low back pain Low back pain Disease Active 04-23 00:00: 00 [facility] Anxiety Anxiety Disease Active 01-24 00:00: 00 [facility] Type 2 diabetes mellitus Type 2 diabetes mellitus Disease Active 01-13 00:00: 00 [facility] Hyperlipid emia with target LDL less than 100 Hyperlipid emia with target LDL less than 100 Disease Active 01-13 00:00: 00 [facility] Essential hypertensi on Essential hypertensi on Disease Active 01-13 00:00: 00 [facility] Right knee pain Right knee pain Disease Active 12-31 00:00: 00 [facility] Right knee pain Right knee pain Disease Active 12-31 00:00: 00 [facility] Allergies, Adverse Reactions, Alerts Allergy Name Allergy Type Status Severity Reaction(s) Onset Date Inactive Date Treating Clinician Comments Source MORPHINE DRUG INGREDI Active Hallucinates 2023-08 00:00: 00 [facility] Morphine Propensi ty to adverse reaction s Active Hallucinatio ns 2023-08 00:00: 00 [facility] Glipizid e Propensi ty to adverse reaction s Active Rash 12-26 00:00: 00 Rash on head, back [facility] GLIPIZID E DRUG INGREDI Active Rash 12-26 00:00: 00 [facility] Clindamy kaylan Propensi ty to adverse reaction s Active Nausea and/or Vomiting 2017-08 00:00: 00 [facility] CLINDAMY KAYLAN DRUG INGREDI Active N/V 2017-08 00:00: 00 [facility] SULFAMET HOXAZOLE -TRIMETH OPRIM DRUG Active N/V 2016-08 00:00: 00 [facility] Sulfamet hoxazole -Trimeth oprim Drug Allergy Active Nausea and/or Vomiting 2016-08 00:00: 00 Other reaction( s): vomiting [facility] Sulfa (Sulfona mide Antibiot ics) Propensi ty to adverse reaction s Active Rash 02-12 00:00: 00 [facility] Tetracyc lines Propensi ty to adverse reaction s Active Rash 02-12 00:00: 00 [facility] SULFA (SULFONA MIDE ANTIBIOT ICS) Drug Class Active Rash 02-12 00:00: 00 [facility] TETRACYC LINES Drug Class Active Rash 02-12 00:00: 00 [facility] Tetracyc lines Propensi ty to adverse reaction s Active Rash 02-12 00:00: 00 [facility] Sulfa (Sulfona mide Antibiot ics) Drug Allergy Active Rash 02-12 00:00: 00 Other reaction( s): itching, vomitingO ther reaction( s): itching, vomiting [facility] Tetracyc lines Propensi ty to adverse reaction s Active Rash 02-12 00:00: 00 [facility] Social History Social Habit Start Date Stop Date Quantity Comments Source History of tobacco use Cigarette Smoker [facility] ASSERTION Not [facility] Alcoholic beverage intake 2024-12-21 00:00:00 2024-12-21 00:00:00 0 /d [facility] Cigarettes smoked current (pack per day) - Reported 2023-12-25 00:00:00 2023-12-25 00:00:00 [facility] Cigarette pack-years 2023-12-25 00:00:00 2023-12-25 00:00:00 [facility] Tobacco use and exposure 2023-12-25 00:00:00 2023-12-25 00:00:00 User of smokeless tobacco [facility] History of Social function 2023-12-25 00:00:00 2023-12-25 00:00:00 [facility] Alcohol intake 2023-12-02 00:00:00 2023-12-02 00:00:00 0 /d [facility] Exposure to SARS-CoV-2 (event) 2022-12-12 00:00:00 2022-12-22 07:53:[address] [facility] Sex assigned at 1960 00:00:00 1960 00:00:00 [facility] Smoking Status Start Date Stop Date Source Smokes tobacco daily 2023-12-25 00:00:00 [facility] Medications Ordered Medication Name Filled Medication Name Start Date Stop Date Current Medication? Ordering Clinician Indication Dosage Frequency Signature (SIG) Comments Components Source CARVEDILOL 6.25 mg tablet 11-09 00:00: 00 Yes [id number] TAKE 1 TABLET BY MOUTH IN THE MORNING AND IN THE EVENING WITH FOOD [facility] AMLODIPINE 10 mg tablet 11-09 00:00: 00 Yes [id number] 10mg TAKE 1 TABLET BY MOUTH IN THE MORNING [facility] blood sugar diagnostic (ONETOUCH VERIO TEST STRIPS) strip 10-27 00:00: 00 Yes Use to check blood sugar TID [facility] Blood-Gluco se Meter (ONETOUCH VERIO FLEX METER) [facility] 10-27 00:00: 00 Yes Use to check blood sugar TID [facility] lancets 33 gauge [facility] 10-27 00:00: 00 Yes Use to check blood sugar TID [facility] blood sugar diagnostic (ONETOUCH VERIO TEST STRIPS) strip 10-27 00:00: 00 Yes Use to check blood sugar TID [facility]: 00 Yes Use to check blood sugar TID [facility] amLODIPine 10 mg tablet 10-20 00:00: 00 11-09 00:00 :00 No [id number] 10mg TAKE 1 TABLET BY MOUTH IN THE MORNING [facility] insulin degludec (TRESIBA FLEXTOUCH U-200) 200 unit/mL (3 mL) InPn 10-13 00:00: 00 Yes [id number] 54U inject 54 Units under the skin in the morning and 54 Units in the evening. [facility] metformin ER 500 mg 24 hr tablet 10-13 00:00: 00 Yes [id number] 1000mg Take 2 tablets by mouth in the morning and 2 tablets in the evening. Take with meals. [facility] amLODIPine 10 mg tablet 108 00:00: 00 Yes [id number] 10mg Take 1 tablet by mouth in the morning. MUST BE SEEN FOR FURTHER REFILLS [facility] methylPREDN ISolone (MEDROL, ADAMA,) 4 mg tablets 2023-08 00:00: 00 Yes [id number] Take by mouth SEE-INSTRU CTIONS. follow package directions [facility] FUROSEMIDE 80 mg tablet 2023-08 00:00: 00 Yes [id number] 80mg TAKE 1 TABLET BY MOUTH IN THE MORNING [facility] SPIRONOLACT ONE 25 mg tablet 2023-08 00:00: 00 Yes [id number] 25mg TAKE 1 TABLET BY MOUTH IN THE MORNING AND IN THE EVENING [facility] TRUE METRIX GLUCOSE TEST STRIP strip 2023-08 00:00: 00 10-27 00:00 :00 No [id number] USE DIRECTED TO CHECK BLOOD SUGAR FOUR TIMES DAILY [facility] aspirin 81 mg Cap 2023-08 09:31: 21 Yes 81mg Take 81 mg by mouth in the morning. [facility] fenofibrate 54 mg tablet 2023-08 0-16 00:00: 00 Yes 54mg Take 1 tablet by mouth in the morning and 1 tablet in the evening. [facility] carvediloL 6.25 mg tablet 2023-08 0-09 00:00: 00 11-09 00:00 :00 No [id number] TAKE 1 TABLET BY MOUTH IN THE MORNING AND IN THE EVENING WITH FOOD [facility] JARDIANCE 10 mg tablet 9-14 00:00: 00 Yes 10mg Take 1 tablet by mouth every morning. [facility] LISINOPRIL 40 mg tablet 9-11 00:00: 00 Yes [id number] 40mg TAKE 1 TABLET BY MOUTH IN THE MORNING [facility] cephALEXin 500 mg capsule 8-07 00:00: 00 03-17 04:59 :00 No [id number] 500mg Take 1 capsule by mouth 4 (four) times daily for [address] [facility] TIZANIDINE 4 mg tablet 7-15 00:00: 00 Yes [id number] TAKE 1 TABLET BY MOUTH EVERY [address] [facility] Insulin Glen, Disposable, (BD ULTRAFINE III MINI PEN) 31 gauge x 3/16" Ndle -15 00:00: 00 Yes [id number] USE FOUR TIMES DAILY DIRECTED [facility] AMLODIPINE 10 mg tablet 15 00:00: 00 08-10 00:00 :00 No [id number] 10mg TAKE 1 TABLET BY MOUTH IN THE MORNING [facility] clonazePAM 1 mg tablet 01-26 00:00: 00 Yes [id number] TAKE 1 TABLET BY MOUTH FOUR TIMES DAILY NEEDED FOR PANIC [facility] clonazePAM 0.5 mg tablet 12-29 00:00: 00 06-29 00:00 :00 No [id number] 1mg Take 2 tablets by mouth 3 (three) times daily as needed for Other (anxiety). [facility] insulin degludec (TRESIBA FLEXTOUCH U-200) 200 unit/mL (3 mL) InPn 12-24 00:00: 00 Yes [id number] 54U inject 54 Units under the skin in the morning and 54 Units in the evening. [facility] spironolact one 25 mg tablet 14 00:00: 00 07-12 00:00 :00 No [id number] 25mg Take 1 tablet by mouth every morning and evening. [facility] metformin ER 500 mg 24 hr tablet 13 00:00: 00 Yes [id number] 1000mg Take 2 tablets by mouth in the morning and 2 tablets in the evening. Take with meals. [facility] amoxicillin -clavulanat e (AUGMENTIN) 875-125 mg per tablet 12-01 00:00: 00 03-09 00:00 :00 No [id number] 1{tbl} Take 1 tablet by mouth in the morning and 1 tablet in the evening. [facility] clonazePAM 1 mg tablet 12-01 00:00: 00 01-25 00:00 :00 No [id number] TAKE 1 TABLET BY MOUTH FOUR TIMES DAILY NEEDED FOR PANIC [facility] clonazePAM 0.5 mg tablet - 00:00: 00 12-28 00:00 :00 No [id number] 1mg Take 2 tablets by mouth 3 (three) times daily as needed for Other (anxiety). [facility] TIZANIDINE 4 mg tablet 29 00:00: 00 02-14 00:00 :00 No [id number] TAKE 1 TABLET BY MOUTH EVERY [address] [facility] carvediloL 6.25 mg tablet 16 00:00: 00 Yes [id number] TAKE 1 TABLET BY MOUTH IN THE MORNING AND IN THE EVENING. TAKE WITH FOOD. [facility] fluconazole (DIFLUCAN) 150 mg tablet 11-15 00:00: 00 11-16 04:59 :00 No [id number] 150mg Take 1 tablet by mouth once now for [address] [facility] nystatin 100,000 unit/mL suspension 11-08 00:00: 00 Yes [id number] 476117I Take 5 mL by mouth 4 (four) times daily. [facility] clonazePAM 1 mg tablet 11-01 00:00: 00 11-30 00:00 :00 No [id number] TAKE 1 TABLET BY MOUTH FOUR TIMES DAILY NEEDED FOR PANIC [facility] nystatin 100,000 unit/mL suspension 19 00:00: 00 Yes [id number] Take 5 mL by mouth 4 (four) times daily. [facility] KCL 20 mEq tablet 3-14 00:00: 00 Yes [id number] 20meq Take 1 tablet by mouth in the morning and 1 tablet in the evening. [facility] lisinopriL 40 mg tablet 3-13 00:00: 00 04-13 00:00 :00 No [id number] 40mg Take 1 tablet by mouth in the morning. [facility] ALBUTEROL 90 mcg/actuati on inhaler 3-08 00:00: 00 Yes [id number] INHALE 2 PUFFS BY MOUTH EVERY 6 HOURS NEEDED FOR WHEEZING, SHORTNESS OF BREATH OR BRONCHOSPA SMS. [facility] lancets (TRUEPLUS LANCETS) 33 gauge Misc 3 00:00: 00 10-27 00:00 :00 No USE DIRECTED TWICE DAILY [facility] clonazePAM 1 mg tablet 00:00: 00 11-01 00:00 :00 No [id number] TAKE 1 TABLET BY MOUTH FOUR TIMES DAILY NEEDED FOR PANIC [facility] spironolact one 25 mg tablet 2 00:00: 00 12-14 00:00 :00 No [id number] 25mg Take 1 tablet by mouth every morning and evening. [facility] blood sugar diagnostic (TRUE METRIX GLUCOSE TEST STRIP) strip 09-11 00:00: 00 07-12 00:00 :00 No [id number] USE DIRECTED TO CHECK BLOOD SUGAR FOUR TIMES DAILY [facility] AMLODIPINE 10 mg tablet 09-11 00:00: 00 02-14 00:00 :00 No [id number] 10mg TAKE 1 TABLET BY MOUTH IN THE MORNING [facility] clonazePAM 1 mg tablet 09-02 00:00: 00 00:00 :00 No [id number] TAKE 1 TABLET BY MOUTH FOUR TIMES DAILY NEEDED FOR PANIC [facility] CHLORHEXIDI NE 0.12 % mouthwash 08-19 00:00: 00 Yes [id number] SWISH AND SPIT 15 ML BY MOUTH TWICE DAILY [facility] GLIPIZIDE XL 5 mg 24 hr tablet -08 00:00: 00 12-24 00:00 :00 No [id number] 5mg TAKE 1 TABLET BY MOUTH DAILY WITH BREAKFAST [facility] TIZANIDINE 4 mg tablet -08 00:00: 00 11-29 00:00 :00 No [id number] TAKE 1 TABLET BY MOUTH EVERY [address] [facility] clonazePAM 1 mg tablet 1- 00:00: 00 09-02 00:00 :00 No [id number] TAKE 1 TABLET BY MOUTH FOUR TIMES DAILY NEEDED FOR PANIC [facility] gabapentin 300 mg capsule 2022-08 00:00: 00 Yes [id number] TAKE 1 CAPSULE BY MOUTH FOUR TIMES DAILY [facility] maalox/diph enhydrAMINE :lidocaine2 % viscous 1:1:1 Susp suspension 2022-08 00:00: 00 Yes [id number] 5mL Take 5 mL by mouth 3 (three) times daily as needed (gargle and spit). [facility] nystatin 100,000 unit/gram powder 2022-08 00:00: 00 Yes [id number] Apply to area(s) 2 (two) times daily. [facility] Insulin Glen, Disposable, (BD ULTRAFINE III MINI PEN) 31 gauge x 3/16" Ndle 2022-08 00:00: 00 02-14 00:00 :00 No [id number] USE DIRECTED FOUR TIMES DAILY. Dx E11.9 [facility] insulin degludec (TRESIBA FLEXTOUCH U-200) 200 unit/mL (3 mL) InPn 2022-08 00:00: 00 12-24 00:00 :00 No [id number] ADMINISTER 48 UNITS UNDER THE SKIN THREE TIMES DAILY [facility] metFORMIN 850 mg tablet 2022-08 00:00: 00 12-13 00:00 :00 No [id number] 850mg Take 1 tablet by mouth daily with breakfast. [facility] empaglifloz in (JARDIANCE) 10 mg 2022-08 00:00: 00 11-15 00:00 :00 No [id number] 10mg Take 1 tablet by mouth in the morning. [facility] neomycin-po lymyxin-gra micidin ophthalmic drops 2022-08 00:00: 00 Yes [id number] 1[drp] Place 1 Drop in left eye in the morning and 1 Drop at noon and 1 Drop in the evening[address] [facility] clonazePAM 1 mg tablet 2022-08 00:00: 00 08-05 00:00 :00 No [id number] TAKE 1 TABLET BY MOUTH FOUR TIMES DAILY NEEDED FOR PANIC [facility] erythromyci n 5 mg/gram (0.5 %) ophthalmic ointment 2022-08 00:00: 00 07-09 00:00 :00 No [id number] 9106 .5[in_u s] Place 0.5 Inches in left eye 4 (four) times daily. [facility] ALBUTEROL 90 mcg/actuati on inhaler 2022-08 00:00: 00 10-08 00:00 :00 No [id number] INHALE 2 PUFFS BY MOUTH EVERY 6 HOURS NEEDED FOR WHEEZING, SHORTNESS OF BREATH OR BRONCHOSPA SMS. [facility] clonazePAM 1 mg tablet 2022-08 00:00: 00 07-07 00:00 :00 No [id number] TAKE 1 TABLET BY MOUTH FOUR TIMES DAILY NEEDED FOR PANIC [facility] lisinopriL 40 mg tablet 2022-08 0-18 00:00: 00 10-13 00:00 :00 No 40mg Take 1 tablet by mouth in the morning. [facility] lisinopriL 20 mg tablet 2022-08 0-18 00:00: 00 05-20 00:00 :00 No [id number] 40mg Take 2 tablets by mouth in the morning. TAKE 1 TABLET BY MOUTH IN THE MORNING [facility] GLIPIZIDE XL 5 mg 24 hr tablet 2022-08 0- 00:00: 00 08-10 00:00 :00 No [id number] 5mg TAKE 1 TABLET BY MOUTH DAILY WITH BREAKFAST [facility] METFORMIN 850 mg tablet 2022-08 0- 00:00: 00 07-10 00:00 :00 No [id number] TAKE 1 TABLET BY MOUTH THREE TIMES DAILY [facility] CARVEDILOL 6.25 mg tablet 2022-08 0-11 00:00: 00 11-16 00:00 :00 No [id number] TAKE 1 TABLET BY MOUTH IN THE MORNING AND IN THE EVENING. TAKE WITH FOOD. [facility] TIZANIDINE 4 mg tablet 2022-08 00:00: 00 08-10 00:00 :00 No [id number] TAKE 1 TABLET BY MOUTH EVERY [address] [facility] NYSTATIN 100,000 unit/mL suspension 2022-08 00:00: 00 07-09 00:00 :00 No [id number] SHAKE LIQUID AND TAKE 5 ML BY MOUTH FOUR TIMES DAILY [facility] LISINOPRIL 20 mg tablet 2022-08 00:00: 00 05-20 00:00 :00 No [id number] 20mg TAKE 1 TABLET BY MOUTH IN THE MORNING [facility] neomycin-po lymyxin-gra micidin ophthalmic drops 2022-08 00:00: 00 07-09 00:00 :00 No [id number] 1[drp] Place 1 Drop in left eye in the morning and 1 Drop in the evening. [facility] FLUCONAZOLE 150 mg tablet 04-30 00:00: 00 Yes [id number] TAKE 1 TABLET BY MOUTH 1 TIME NOW FOR [address] [facility] GABAPENTIN 300 mg capsule 04-30 00:00: 00 07-30 00:00 :00 No [id number] TAKE 1 CAPSULE BY MOUTH FOUR TIMES DAILY [facility] FUROSEMIDE 80 mg tablet 04-13 00:00: 00 07-12 00:00 :00 No [id number] 80mg TAKE 1 TABLET BY MOUTH IN THE MORNING [facility] SPIRONOLACT ONE 25 mg tablet 04-13 00:00: 00 09-15 00:00 :00 No [id number] TAKE 1 TABLET BY MOUTH IN THE MORNING AND IN THE EVENING [facility] fluconazole (DIFLUCAN) 150 mg tablet 04-13 00:00: 00 04-14 04:59 :00 No [id number] 150mg Take 1 tablet by mouth once now for [address] [facility] clonazePAM 1 mg tablet 04-08 00:00: 06-08 00:00 :00 No [id number] 1mg Take 1 tablet by mouth 4 (four) times daily as needed for Other (panic). [facility] ALBUTEROL 90 mcg/actuati on inhaler 03-30 00:00: 00 06-29 00:00 :00 No [id number] INHALE 2 PUFFS BY MOUTH EVERY 6 HOURS NEEDED FOR WHEEZING, SHORTNESS OF BREATH OR BRONCHOSPA SMS. [facility] amLODIPine 10 mg tablet 03-26 00:00: 00 09-11 00:00 :00 No [id number] 10mg Take 1 tablet by mouth in the morning. [facility] lisinopriL 40 mg tablet 03-26 00:00: 00 07-09 00:00 :00 No [id number] 40mg Take 1 tablet by mouth in the morning. [facility] Insulin Glen, Disposable, (BD ULTRAFINE III MINI PEN) 31 gauge x 3/16" Ndle 02-25 00:00: 00 07-10 00:00 :00 No [id number] USE DIRECTED FOUR TIMES DAILY. Dx E11.9 [facility] glipiZIDE XL 5 mg 24 hr tablet 02-25 00:00: 00 05-14 00:00 :00 No [id number] 5mg Take 1 tablet by mouth daily with breakfast. [facility] TIZANIDINE 4 mg tablet 02-23 00:00: 00 05-13 00:00 :00 No [id number] TAKE 1 TABLET BY MOUTH EVERY [address] [facility] METFORMIN 850 mg tablet 02-20 00:00: 00 05-14 00:00 :00 No [id number] TAKE 1 TABLET BY MOUTH THREE TIMES DAILY [facility] ALBUTEROL 90 mcg/actuati on inhaler 14 00:00: 00 03-30 00:00 :00 No [id number] INHALE 2 PUFFS BY MOUTH EVERY 6 HOURS NEEDED FOR WHEEZING, SHORTNESS OF BREATH OR BRONCHOSPA SMS. [facility] clonazePAM 1 mg tablet 02-11 00:00: 00 04-08 00:00 :00 No [id number] 1mg Take 1 tablet by mouth in the morning and 1 tablet at noon and 1 tablet in the evening. [facility] nystatin 100,000 unit/gram powder 01-27 00:00: 00 07-09 00:00 :00 No [id number] Apply to area(s) 2 (two) times daily. [facility] nystatin 100,000 unit/mL suspension 01-26 00:00: 00 Yes [id number] Take 5 mL by mouth 4 (four) times daily. [facility] SPIRONOLACT ONE 25 mg tablet 01-26 00:00: 00 04-13 00:00 :00 No [id number] TAKE 1 TABLET BY MOUTH IN THE MORNING AND IN THE EVENING [facility] nystatin 100,000 unit/gram powder 01-12 00:00: 00 07-22 00:00 :00 No [id number] Apply to area(s) 2 (two) times daily. [facility] traMADoL 50 mg tablet 01-07 00:00: 00 01-15 04:59 :00 No [id number] 50mg Take 1 tablet by mouth every 6 (six) hours as needed for Pain (scale 4-6) for up to 7 days. Indication s: chronic pain [facility] nystatin 100,000 unit/gram powder 01-02 00:00: 00 01-12 00:00 :00 No [id number] Apply to area(s) 2 (two) times daily. [facility] NYSTATIN 100,000 unit/mL suspension 01-01 00:00: 00 01-26 00:00 :00 No [id number] SHAKE LIQUID AND TAKE 5 ML BY MOUTH FOUR TIMES DAILY [facility] gabapentin 300 mg capsule 12-28 00:00: 00 04-30 00:00 :00 No [id number] TAKE 1 CAPSULE BY MOUTH FOUR TIMES [address] [facility] escitalopra m oxalate 20 mg tablet 12-22 10:42: 08 12-22 00:00 :[address] [facility] fluconazole (DIFLUCAN) 150 mg tablet 12-22 00:00: 00 04-13 00:00 :00 No [id number] Weekly for [address] [facility] nystatin 100,000 unit/gram powder 12-22 00:00: 00 01-02 00:00 :00 No [id number] Apply to area(s) 2 (two) times daily. [facility] venlafaxine XR 150 mg 24 hr capsule 12-20 00:00: [address] [facility] travoprost 0.004 % ophthalmic solution 12-17 00:00: 00 Yes INSTILL 1 DROP IN BOTH EYES EVERY NIGHT AT BEDTIME [facility] ALBUTEROL 90 mcg/actuati on inhaler 12-17 00:00: 00 02-13 00:00 :00 No [id number] INHALE 2 PUFFS BY MOUTH EVERY 6 HOURS NEEDED FOR WHEEZING, SHORTNESS OF BREATH OR BRONCHOSPA SMS. [facility] clonazePAM 1 mg tablet 12-15 00:00: 00 02-11 00:00 :00 No [id number] 1mg Take 1 tablet by mouth in the morning and 1 tablet at noon and 1 tablet in the evening. [facility] metoprolol tartrate 25 mg tablet 12-10 00:00: 00 Yes [id number] 25mg Take 1 tablet by mouth in the morning and 1 tablet in the evening. [facility] TIZANIDINE 4 mg tablet 12-08 00:00: 00 02-23 00:00 :00 No [id number] TAKE 1 TABLET BY MOUTH EVERY [address] [facility] traMADoL 50 mg tablet 12-08 00:00: 00 12-16 04:59 :00 No [id number] 50mg Take 1 tablet by mouth every 6 (six) hours as needed for Pain (scale 4-6) for up to 7 days. Indication s: chronic pain [facility] metFORMIN 850 mg tablet 12-06 00:00: 00 02-20 00:00 :00 No [id number] TAKE 1 TABLET BY MOUTH THREE TIMES DAILY [facility] lisinopriL 20 mg tablet 11-27 00:00: 00 05-13 00:00 :00 No [id number] 20mg Take 1 tablet by mouth in the morning. [facility] carvediloL 6.25 mg tablet 11-27 00:00: 00 05-13 00:00 :00 No [id number] 6.25mg Take 1 tablet by mouth in the morning and 1 tablet in the evening. [facility] amoxicillin 500 mg tablet 11-27 00:00: 00 12-22 00:00 :00 No [id number] 500mg Take 1 tablet by mouth in the morning and 1 tablet at noon and 1 tablet in the evening. [facility] escitalopra m oxalate 20 mg tablet 11-12 09:26: [address] [facility] furosemide 80 mg tablet 11-12 00:00: 00 04-13 00:00 :00 No [id number] 80mg Take 1 tablet by mouth in the morning. [facility] spironolact one 25 mg tablet 11-12 00:00: 00 01-26 00:00 :00 No [id number] 25mg Take 1 tablet by mouth in the morning and 1 tablet in the evening. [facility] traMADoL 50 mg tablet 11-12 00:00: 00 11-20 04:59 :00 No [id number] 50mg Take 1 tablet by mouth every 6 (six) hours as needed for Pain (scale 4-6) for up to 7 days. Indication s: chronic pain [facility] nystatin 100,000 unit/mL suspension 11-05 00:00: 00 01-01 00:00 :00 No [id number] Take 5 mL by mouth 4 (four) times daily. [facility] azelastine 137 mcg (0.1 %) nasal spray 10-30 00:00: 00 11-15 00:00 :00 No [id number] 1{spray } Use 1 Plummer in each nostril in the morning and 1 Plummer in the evening. Use in each nostril as directed [facility] benzonatate (TESSALON PERLES) 100 mg capsule 10-30 00:00: 00 07-09 00:00 :00 No [id number] 100mg Take 1 capsule by mouth every 8 (eight) hours as needed for Cough. [facility] CHLORHEXIDI NE 0.12 % mouthwash 10-27 00:00: 00 08-19 00:00 :00 No [id number] SWISH AND SPIT 15 ML BY MOUTH TWICE DAILY [facility] traMADoL 50 mg tablet 10-27 00:00: 00 11-04 04:59 :00 No [id number] 50mg Take 1 tablet by mouth every 6 (six) hours as needed for Pain (scale 4-6) for up to 7 days. Indication s: chronic pain [facility] lisinopriL (ZESTRIL) 40 mg tablet 10-17 00:00: 00 11-27 00:00 :00 No [id number] 40mg Take 1 tablet by mouth in the morning. [facility] clonazePAM 1 mg tablet 10-15 00:00: 00 12-15 00:00 :00 No [id number] 1mg Take 1 tablet by mouth in the morning and 1 tablet at noon and 1 tablet in the evening. [facility] NIFEdipine ER 60 mg tablet 10-07 00:00: 00 11-27 00:00 :00 No [id number] 60mg Take 1 tablet by mouth in the morning and 1 tablet in the evening. [facility] glipiZIDE XL 5 mg 24 hr tablet 20 00:0002-25 00:00 :00 No [id number] 5mg TAKE 1 TABLET BY MOUTH DAILY WITH BREAKFAST [facility] Mometasone- Formoterol (DULERA) 200-5 mcg/actuati on inhaler 09-10 00:00: 00 Yes [id number] 2{puff} Inhale 2 Puffs in the morning and 2 Puffs in the evening. [facility] nystatin 100,000 unit/mL suspension 09-10 00:00: 01-26 00:00 :00 No [id number] Take 5 mL by mouth 4 (four) times daily. [facility] albuterol 90 mcg/actuati on inhaler 09-10 00:00: 12-17 00:00 :00 No [id number] INHALE 2 PUFFS BY MOUTH EVERY 6 HOURS NEEDED FOR WHEEZING, SHORTNESS OF BREATH OR BRONCHOSPA [facility] traMADoL 50 mg tablet 09-10 00:00: 09-18 05:59 :00 No [id number] 50mg Take 1 tablet by mouth every 6 (six) hours as needed for Pain (scale 4-6) for up to 7 days. Indication s: chronic pain [facility] lancets 33 gauge Misc 09-02 00:00: 00 10-08 00:00 :00 No Use as directed twice a day for E11.9 [facility] blood sugar diagnostic (TRUE METRIX GLUCOSE TEST STRIP) strip 09-02 00:00: 00 09-11 00:00 :00 No [id number] Use as directed to check blood sugar QID DX: E11.9 [facility] fluconazole (DIFLUCAN) 150 mg tablet 09-02 00:00: 00 04-13 00:00 :00 No 150mg Take 1 tablet by mouth every 5 (five) days. [facility] carvediloL 6.25 mg tablet 09-01 00:00: 00 11-27 00:00 :00 No 6.25mg Take 1 tablet by mouth in the morning and 1 tablet in the evening. [facility] Cholecalcif emmanuel, Vitamin D3, 1,250 mcg (50,000 unit) capsule 08-30 00:00: 00 Yes 1{capsu le} Take 1 capsule by mouth weekly. [facility] Cholecalcif emmanuel, Vitamin D3, 1,250 mcg (50,000 unit) capsule 08-30 00:00: 00 Yes [id number] Take 1 capsule by mouth weekly. [facility] clonazePAM 1 mg tablet 08-20 00:00: 00 10-15 00:00 :00 No [id number] 1mg Take 1 tablet by mouth in the morning and 1 tablet at noon and 1 tablet in the evening. [facility] TIZANIDINE 4 mg tablet 08-19 00:00: 00 12-08 00:00 :00 No [id number] TAKE 1 TABLET BY MOUTH EVERY [address] [facility] venlafaxine XR 37.5 mg 24 hr capsule 08-16 00:00: 00 Yes TAKE 1 CAPSULE BY MOUTH EVERY MORNING WITH VENLAFAXIN E ER 150MG [facility] acetic acid 0.25 % irrigation solution 08-12 00:00: 00 Yes USE DIRECTED FOR WOUND CARE DAILY [facility] cefepime in iso-osm dextrose (CEFEPIME IN DEXTROSE,IS O-OSM) 2 gram/100 mL PgBk 08-10 00:00: 00 07-09 00:00 :[address] [facility] nystatin 100,000 unit/mL suspension 08-08 00:00: 00 08-19 05:59 :00 No [id number] U Swish and spit out 10 mL 4 (four) times daily for [address] [facility] traMADoL 50 mg tablet 08-07 12:07: 49 08-07 00:00 :00 No 1-[address] [facility] escitalopra m oxalate 20 mg tablet 08-07 11:59: [address] [facility] SANTYL 250 unit/gram ointment 1-04 00:00: 00 Yes APPLY NICKEL THICK TO WOUND DAILY [facility] vancomycin 5 gram injection 2021-08 00:00: 00 07-09 00:00 :[address] [facility] HYDROcodone -acetaminop hen 7.5-325 mg per tablet 2021-08 00:00: 00 09-10 00:00 :00 No [id number] 1{tbl} Take 1 tablet by mouth every 6 (six) hours as needed for Pain. Indication s: chronic pain [facility] gabapentin 300 mg capsule 2021-08 00:00: 00 12-28 00:00 :00 No [id number] TAKE 1 CAPSULE BY MOUTH FOUR TIMES DAILY [facility] latanoprost 0.005 % ophthalmic drops 2021-08 00:00: 00 Yes INSTILL 1 DROP INTO BOTH EYES ONCE DAILY [facility] NIFEdipine ER 60 mg tablet 2021-08 00:00: 00 10-07 00:00 :00 No [id number] 60mg Take 1 tablet by mouth in the morning and 1 tablet in the evening. [facility] ondansetron (ZOFRAN (PF)) injection 4 mg 2021-08 20:45: 00 07-19 20:00 :00 No 4mg 4 mg, Slow IV Push, ONCE, 1 dose, On 07/19/22 at 1445, GEOVANI [facility] morpHINE (4 mg/mL) injection 4 mg 2021-08 19:45: 00 07-19 20:00 :00 No 4mg 4 mg, Slow IV Push, ONCE, 1 dose, On 07/19/22 at 1345, STAT [facility] cephALEXin (KEFLEX) 500 mg capsule 2021-08 00:00: 00 07-09 00:00 :00 No [id number] 500mg Take 1 capsule by mouth 4 (four) times daily. [facility] ciprofloxac in HCl 500 mg tablet 2021-08 00:00: 00 09-02 00:00 :00 No [id number] 500mg Take 1 tablet by mouth in the morning and 1 tablet in the evening. [facility] furosemide 80 mg tablet 2021-08 00:00: 00 11-12 00:00 :00 No 80mg Take 1 tablet by mouth every 48 (forty-eig ht) hours. [facility] spironolact one 25 mg tablet 2021-08 00:00: 00 11-12 00:00 :00 No 25mg Take 1 tablet by mouth every 48 (forty-eig ht) hours. [facility] quinapriL 40 mg tablet 2021-08 00:00: 00 10-17 00:00 :00 No [id number] 40mg Take 1 tablet by mouth every morning. [facility] HYDROcodone -acetaminop hen 7.5-325 mg per tablet 2021-08 00:00: 00 07-30 00:00 :00 No [id number] 1{tbl} Take 1 tablet by mouth every 6 (six) hours as needed for Pain. Indication s: chronic pain [facility] MUPIROCIN 2 % ointment 2021-08 00:00: 00 07-09 00:00 :00 No [id number] APPLY TOPICALLY TO THE AFFECTED AREA THREE TIMES DAILY [facility] clonazePAM 1 mg tablet 2021-08 00:00: 00 08-20 00:00 :00 No [id number] 1mg Take 1 tablet by mouth in the morning and 1 tablet at noon and 1 tablet in the evening. [facility] furosemide 80 mg tablet 2021-08 00:00: 00 07-10 00:00 :00 No 80mg Take 1 tablet by mouth in the morning. [facility] NIFEdipine ER 30 mg tablet 2021-08 00:00: 00 07-21 00:00 :00 No [id number] 30mg Take 1 tablet by mouth in the morning and 1 tablet in the evening. [facility] insulin degludec (TRESIBA FLEXTOUCH U-200) 200 unit/mL (3 mL) InPn 2021-08 00:00: 00 07-10 00:00 :00 No [id number] ADMINISTER 62 UNITS UNDER THE SKIN THREE TIMES DAILY [facility] HYDROcodone -acetaminop hen 7.5-325 mg per tablet 2021-08 00:00: 00 07-02 00:00 :00 No [id number] 1{tbl} Take 1 tablet by mouth every 6 (six) hours as needed for Pain. Indication s: chronic pain [facility] AMLODIPINE 5 mg tablet 2021-08 00:00: 00 06-10 00:00 :00 No [id number] 5mg TAKE 1 TABLET BY MOUTH DAILY [facility] TIZANIDINE 4 mg tablet 2021-08 00:00: 00 08-19 00:00 :00 No [id number] TAKE 1 TABLET BY MOUTH EVERY [address] [facility] empaglifloz in (JARDIANCE) 10 mg 2021-08 00:00: 00 07-10 00:00 :00 No [id number] 10mg Take 1 tablet by mouth in the morning. [facility] amoxicillin 500 mg tablet 2021-08 00:00: 00 07-09 00:00 :00 No [id number] 500mg Take 1 tablet by mouth in the morning and 1 tablet in the evening. [facility] METFORMIN 850 mg tablet 2021-08 00:00: 00 12-06 00:00 :00 No [id number] TAKE 1 TABLET BY MOUTH THREE TIMES DAILY [facility] GLIPIZIDE XL 5 mg 24 hr tablet 2021-08 00:00: 00 09-22 00:00 :00 No [id number] 5mg TAKE 1 TABLET BY MOUTH DAILY WITH BREAKFAST [facility] ALBUTEROL 90 mcg/actuati on inhaler 2021-08 00:00: 00 09-10 00:00 :00 No [id number] INHALE 2 PUFFS BY MOUTH EVERY 6 HOURS NEEDED FOR WHEEZING, SHORTNESS OF BREATH OR BRONCHOSPA [facility] QUINAPRIL 40 mg tablet 2021-08 0 00:00: 07-09 00:00 :00 No [id number] 40mg TAKE 1 TABLET BY MOUTH EVERY MORNING [facility] HYDROcodone -acetaminop hen 7.5-325 mg per tablet 2021-08 0 00:00: 06-04 00:00 :00 No [id number] 1{tbl} Take 1 tablet by mouth every 6 (six) hours as needed for Pain. Indication s: chronic pain [facility] gabapentin 300 mg capsule 04-29 00:00: 00 07-22 00:00 :00 No [id number] TAKE 1 CAPSULE BY MOUTH FOUR TIMES DAILY [facility] clonazePAM 1 mg tablet 04-28 00:00: 06-23 00:00 :00 No [id number] 1mg Take 1 tablet by mouth in the morning and 1 tablet at noon and 1 tablet in the evening. [facility] HYDROcodone -acetaminop hen 7.5-325 mg per tablet 04-09 00:00: 05-07 00:00 :00 No [id number] 1{tbl} Take 1 tablet by mouth every 6 (six) hours as needed for Pain. Indication s: chronic pain [facility] VERAPAMIL 240 mg 24 hr capsule 8- 00:00: 06-10 00:00 :00 No [id number] 240mg TAKE 1 CAPSULE BY MOUTH DAILY [facility] ALBUTEROL 90 mcg/actuati on inhaler 8- 00:00: 05-23 00:00 :00 No [id number] INHALE 2 PUFFS BY MOUTH EVERY 6 HOURS NEEDED FOR WHEEZING, SHORTNESS OF BREATH OR BRONCHOSPA [facility] HYDROcodone -acetaminop hen 7.5-325 mg per tablet 8- 00:00: 00 04-09 00:00 :00 No [id number] 1{tbl} Take 1 tablet by mouth every 6 (six) hours as needed for Pain. Indication s: chronic pain [facility] TIZANIDINE 4 mg tablet 03-03 00:00: 00 05-26 00:00 :00 No [id number] TAKE 1 TABLET BY MOUTH EVERY [address] [facility] QUINAPRIL 40 mg tablet 03-03 00:00: 05-23 00:00 :00 No [id number] 40mg TAKE 1 TABLET BY MOUTH EVERY MORNING [facility] glipiZIDE XL 5 mg 24 hr tablet 02-27 00:00: 00 05-23 00:00 :00 No [id number] 5mg TAKE 1 TABLET BY MOUTH DAILY WITH BREAKFAST [facility] clonazePAM 1 mg tablet 02-24 00:00: 00 04-28 00:00 :00 No [id number] 1mg Take 1 tablet by mouth in the morning and 1 tablet at noon and 1 tablet in the evening. [facility] nirmatrelvi r-ritonavir (PAXLOVID, EUA,) 150 mg x 2- 100 mg tablet 02-12 00:00: 00 05-23 00:00 :00 No [id number] 3{tbl} Take 3 tablets by mouth in the morning and 3 tablets in the evening. [facility] meloxicam 7.5 mg tablet 02-11 00:00: 00 11-15 00:00 :00 No 7.5mg Take 1 tablet by mouth in the morning. [facility] HYDROcodone -acetaminop hen 7.5-325 mg per tablet 02-10 00:00: 00 Yes [id number] 1{tbl} Take 1 tablet by mouth every 6 (six) hours as needed for Pain. Indication s: chronic pain [facility] chlorhexidi ne 0.12 % mouthwash 02-05 00:00: 00 10-27 00:00 :00 No [id number] 15mL Swish and spit out 15 mL 2 (two) times daily. [facility] albuterol 90 mcg/actuati on inhaler 02-05 00:00: 00 03-26 00:00 :00 No [id number] INHALE 2 PUFFS BY MOUTH EVERY 6 HOURS NEEDED FOR WHEEZING, SHORTNESS OF BREATH OR BRONCHOSPA SMS [facility] Insulin Glen, Disposable, (BD ULTRAFINE III MINI PEN) 31 gauge x 3/16" Ndle 02-02 00:00: 00 Yes [id number] USE DIRECTED FOUR TIMES DAILY. Dx E11.9 [facility] Insulin [place], Disposable, (BD ULTRAFINE III MINI PEN) 31 gauge x 3/16" Ndle 02-02 00:00: 00 02-25 00:00 :00 No [id number] USE DIRECTED FOUR TIMES DAILY. Dx E11.9 [facility] TRESIBA FLEXTOUCH U-200 200 unit/mL (3 mL) InPn 01-26 00:00: 00 06-05 00:00 :00 No [id number] ADMINISTER 62 UNITS UNDER THE SKIN THREE TIMES DAILY [facility] VERAPAMIL 240 mg 24 hr capsule 12-31 00:00: 00 03-31 00:00 :00 No [id number] 240mg TAKE 1 CAPSULE BY MOUTH DAILY [facility] mupirocin 2 % ointment 12-25 00:00: 00 06-30 00:00 :00 No [id number] Apply to area(s) 3 (three) times daily. [facility] aspirin 325 mg tablet 12-10 09:43: 40 06-29 00:00 :00 No 325mg Take 325 mg by mouth daily. [facility] ketoconazol e 2 % shampoo 12-10 00:00: 00 Yes [id number] Apply to area(s) once daily as needed for Itching. [facility] METFORMIN 850 mg tablet 12-02 00:00: 00 05-23 00:00 :00 No [id number] TAKE 1 TABLET BY MOUTH THREE TIMES DAILY [facility] lancets 33 gauge Misc 4-25 00:00: 00 09-02 00:00 :00 No Use as directed twice a day for E11.9 [facility] gabapentin 300 mg capsule 4-11 00:00: 00 04-29 00:00 :00 No [id number] TAKE 1 CAPSULE BY MOUTH FOUR TIMES DAILY [facility] TRUE METRIX GLUCOSE METER Kit 16 00:00: 00 10-27 00:00 :00 No [id number] Use as directed for 4 times a day glucose check, ICD E11.9 [facility] TRUE METRIX GLUCOSE TEST STRIP strip 10-16 00:00: 00 09-02 00:00 :00 No [id number] Use as directed to check blood sugar QID DX: E11.9 [facility] SPIRONOLACT ONE 25 mg tablet 09-02 00:00: 00 07-10 00:00 :00 No [id number] TAKE 1 TABLET BY MOUTH TWICE DAILY [facility] FUROSEMIDE 80 mg tablet 09-02 00:00: 00 06-11 00:00 :00 No TAKE 1 TABLET BY MOUTH TWICE DAILY [facility] AMLODIPINE 5 mg tablet 09-02 00:00: 00 05-30 00:00 :00 No [id number] 5mg TAKE 1 TABLET BY MOUTH DAILY [facility] venlafaxine XR 150 mg 24 hr capsule - 00:00: 00 09-10 00:00 :00 No [id number] TK [address] [facility] omega-3 fatty acids-vitam in E (FISH OIL) 1,000 mg capsule 2020-08 09:44: 23 Yes 1g Take 1 g by mouth daily. [facility] omega-3 fatty acids-vitam in E (FISH OIL) 1,000 mg capsule 2020-08 09:44: 23 Yes 1g Take 1 g by mouth daily. [facility] aspirin 81 mg EC tablet 2020-08 13:59: 00 05-10 00:00 :00 No 81mg Take 81 mg by mouth daily. [facility] Methylcellu lose, with Sugar, (CITRUCEL, SUCROSE,) powder 04-25 00:00: 00 Yes [id number] 1{scoop } Take 1 Scoop by mouth daily. Mixed with water [facility] Methylcellu lose, with Sugar, (CITRUCEL, SUCROSE,) powder 04-25 00:00: 00 Yes [id number] 1{scoop } Take 1 Scoop by mouth daily. Mixed with water [facility] chlorhexidi ne 4 % external liquid 04-24 00:00: 00 Yes [id number] Apply to area(s) once daily as needed for Wound care. [facility] chlorhexidi ne 4 % external liquid 04-24 00:00: 00 07-09 00:00 :00 No [id number] Apply to area(s) once daily as needed for Wound care. [facility] ONETOUCH DELICA PLUS LANCET 30 gauge Misc 02-26 00:00: 00 10-27 00:00 :00 No [id number] Use as directed for twice a day glucose monitoring for ICD E11.9 [facility] HYDROcodone -acetaminop hen 7.5-325 mg per tablet 2019-08 00:00: 00 08-08 00:00 :00 No [id number] 1{tbl} Take 1 tablet by mouth every 6 (six) hours as needed for Pain. Indication s: chronic pain [facility] spironolact one 25 mg tablet 2019-08 00:00: 00 09-13 00:00 :00 No [id number] 25mg Take 1 tablet by mouth 2 (two) times daily. [facility] albuterol 90 mcg/actuati on inhaler 2019-08 00:00: 00 01-25 00:00 :00 No [id number] INHALE 2 PUFFS BY MOUTH EVERY 6 HOURS NEEDED FOR WHEEZING, SHORTNESS OF BREATH OR BRONCHOSPA [facility] metFORMIN 850 mg tablet 2019-08 00:00: 09-13 00:00 :00 No 850mg Take 1 tablet by mouth 3 (three) times daily. [facility] furosemide 80 mg tablet 2019-08 00:00: 09-13 00:00 :00 No 80mg Take 1 tablet by mouth 2 (two) times daily. [facility] insulin degludec (TRESIBA FLEXTOUCH U-200) 200 unit/mL (3 mL) InPn 2019-08 00:00: 09-28 00:00 :00 No [id number] 54U inject 54 Units under the skin 3 (three) times daily. DX: E11.9 [facility] clonazePAM 1 mg tablet 2019-08 00:00: 07-23 00:00 :00 No [id number] TAKE 1 TABLET BY MOUTH THREE TIMES DAILY [facility] mupirocin 2 % ointment 2019-08 00:00: 00 04-24 00:00 :00 No [id number] APPLY TO AREA(S) THREE TIMES DAILY [facility] gabapentin 300 mg capsule 04-24 00:00: 00 05-10 00:00 :00 No [id number] TAKE ONE CAPSULE BY MOUTH four TIMES DAILY [facility] liraglutide (VICTOZA 3-ADAMA) 0.6 mg/0.1 mL (18 mg/3 mL) injection 04-13 00:00: 00 09-28 00:00 :00 No 1.8mg inject 1.8 mg under the skin daily. [facility] chlorhexidi ne 0.12 % mouthwash 04-11 00:00: 00 02-05 00:00 :00 No [id number] 15mL Swish and spit out 15 mL 2 (two) times daily. [facility] TIZANIDINE 4 mg tablet 04-10 00:00: 00 08-27 00:00 :00 No [id number] TAKE 1 TABLET BY MOUTH EVERY [address] [facility] diclofenac 75 mg EC tablet 04-04 00:00: 00 06-29 00:00 :00 No [id number] 75mg Take 1 tablet by mouth 2 (two) times daily with meals. [facility] QUINAPRIL 40 mg tablet 03-27 00:00: 09-13 00:00 :00 No [id number] TAKE 1 TABLET BY MOUTH EVERY MORNING [facility] VERAPAMIL 240 mg 24 hr capsule 03-27 00:00: 07-31 00:00 :00 No [id number] 240mg TAKE 1 CAPSULE BY MOUTH DAILY [facility] liraglutide (VICTOZA 2-ADAMA) 0.6 mg/0.1 mL (18 mg/3 mL) injection 03-23 00:00: 00 09-28 00:00 :00 No [id number] ADMINISTER 1.8 MG UNDER THE SKIN EVERY DAY [facility] Insulin Glen, Disposable, (BD ULTRAFINE III MINI PEN) 31 gauge x 3/16" Ndle 01-25 00:00: 00 08-14 00:00 :00 No USE DIRECTED FOUR TIMES DAILY. DX:E11.9 [facility] Supply Kit 11-22 00:00: 00 Yes [id number] J40: Brochitis - Dispense # 1 Jose Respironic s (okay for alternativ e brand) for nebulizer treatment [facility] Supply Kit 11-22 00:00: 00 Yes [id number] J40: Brochitis - Dispense # 1 Jose Respironic s (okay for alternativ e brand) for nebulizer treatment [facility] blood sugar diagnostic (TRUE METRIX GLUCOSE TEST STRIP) strip 415 00:00: 00 02-19 00:00 :00 No Use as directed to check blood sugar QID DX: E11.9 [facility] celecoxib 100 mg capsule 4-04 00:00: 00 09-28 00:00 :00 No [id number] 100mg Take 1 capsule by mouth 2 (two) times daily with meals. [facility] meloxicam 7.5 mg tablet 3-22 00:00: 00 11-13 00:00 :00 No [id number] Take 1 tab PO daily only as needed for pain. [facility] verapamil 240 mg SR tablet 2-15 00:00: 00 07-31 00:00 :[address] [facility] venlafaxine XR 150 mg 24 hr capsule 8-03 00:00: 00 08-15 00:00 :00 No TK [address] [facility] ALCOHOL PREP PADS PadM 6 00:00: [address] [facility] COMFORT EZ PEN NEEDLES 31 gauge x 5/16" Ndle 6 00:00: 00 08-14 00:00 :[address] [facility] loxapine (LOXITANE) 50 mg capsule 1-20 00:00: [address] [facility] Immunizations Ordered Immunization Name Filled Immunization Name Date Status Comments Source Influenza Virus Vaccine Quad IM, Preserv and ABX Free 6 MO-64 YRS (FLUCELVAX) 2024-05-12 00:00:00 Completed Influenza Virus Vaccine Quad IM, Preserv and ABX Free 6 MO-64 YRS (FLUCELVAX) 2023-07-01 00:00:00 Completed Pneumococcal 20 Conjugate, PCV20 (Prevnar 20) 2023-07-01 00:00:00 Completed Influenza Virus Vaccine Recomb Quad IM, Preserv and ABX Free 18-64 YRS 2022-04-03 00:00:[address] [facility] Influenza Virus Vaccine Recomb Quad IM, Preserv and ABX Free 18-64 YRS 2022-04-03 00:00:[address] [facility] Influenza Virus Vaccine Recomb Quad IM, Preserv and ABX Free 18-64 YRS 2022-04-03 00:00:[address] [facility] Influenza Virus Vaccine Recomb Quad IM, Preserv and ABX Free 18-64 YRS 2022-04-03 00:00:[address] [facility] Influenza Virus Vaccine Recomb Quad IM, Preserv and ABX Free 18-64 YRS 2022-04-03 00:00:[address] [facility] Influenza Virus Vaccine Recomb Quad IM, Preserv and ABX Free 18-64 YRS 2022-04-03 00:00:[address] [facility] Influenza Virus Vaccine Recomb Quad IM, Preserv and ABX Free 18-64 YRS 2022-04-03 00:00:[address] [facility] Influenza Virus Vaccine Recomb Quad IM, Preserv and ABX Free 18-64 YRS 2022-04-03 00:00:[address] [facility] Influenza Virus Vaccine Recomb Quad IM, Preserv and ABX Free 18-64 YRS 2022-04-03 00:00:[address] [facility] Influenza Virus Vaccine Recomb Quad IM, Preserv and ABX Free 18-64 YRS 2022-04-03 00:00:[address] [facility] Influenza Virus Vaccine Recomb Quad IM, Preserv and ABX Free 18-64 YRS 2022-04-03 00:00:[address] [facility] Influenza Virus Vaccine Recomb Quad IM, Preserv and ABX Free 18-64 YRS 2022-04-03 00:00:[address] [facility] Influenza Virus Vaccine Recomb Quad IM, Preserv and ABX Free 18-64 YRS 2022-04-03 00:00:[address] [facility] Influenza Virus Vaccine Recomb Quad IM, Preserv and ABX Free 18-64 YRS 2022-04-03 00:00:[address] [facility] Influenza Virus Vaccine Recomb Quad IM, Preserv and ABX Free 18-64 YRS 2022-04-03 00:00:[address] [facility] Influenza Virus Vaccine Recomb Quad IM, Preserv and ABX Free 18-64 YRS 2022-04-03 00:00:[address] [facility] Influenza Virus Vaccine Recomb Quad IM, Preserv and ABX Free 18-64 YRS 2022-04-03 00:00:[address] [facility] Influenza Virus Vaccine Recomb Quad IM, Preserv and ABX Free 18-64 YRS 2022-04-03 00:00:[address] [facility] Influenza Virus Vaccine Recomb Quad IM, Preserv and ABX Free 18-64 YRS 2022-04-03 00:00:[address] [facility] Influenza Virus Vaccine Recomb Quad IM, Preserv and ABX Free 18-64 YRS 2022-04-03 00:00:[address] [facility] Influenza Virus Vaccine Recomb Quad IM, Preserv and ABX Free 18-64 YRS 2022-04-03 00:00:[address] [facility] Influenza Virus Vaccine Recomb Quad IM, Preserv and ABX Free 18-64 YRS 2022-04-03 00:00:[address] [facility] Influenza Virus Vaccine Recomb Quad IM, Preserv and ABX Free 18-64 YRS 2022-04-03 00:00:[address] [facility] Influenza Virus Vaccine Recomb Quad IM, Preserv and ABX Free 18-64 YRS 2022-04-03 00:00:[address] [facility] Influenza Virus Vaccine Recomb Quad IM, Preserv and ABX Free 18-64 YRS 2022-04-03 00:00:[address] [facility] Influenza Virus Vaccine Recomb Quad IM, Preserv and ABX Free 18-64 YRS 2022-04-03 00:00:[address] [facility] Influenza Virus Vaccine Recomb Quad IM, Preserv and ABX Free 18-64 YRS 2022-04-03 00:00:[address] [facility] Influenza Virus Vaccine Recomb Quad IM, Preserv and ABX Free -64 YRS 2022-04-03 00:00:[address] [facility] Influenza Virus Vaccine Recomb Quad IM, Preserv and ABX Free 18-64 YRS 2022-04-03 00:00:[address] [facility] Influenza Virus Vaccine Recomb Quad IM, Preserv and ABX Free 18-64 YRS 2022-04-03 00:00:[address] [facility] Influenza Virus Vaccine Recomb Quad IM, Preserv and ABX Free 18-64 YRS 2022-04-03 00:00:[address] [facility] Influenza Virus Vaccine Recomb Quad IM, Preserv and ABX Free -64 YRS 2022-04-03 00:00:[address] [facility] Influenza Virus Vaccine Recomb Quad IM, Preserv and ABX Free 18-64 YRS 2022-04-03 00:00:[address] [facility] Influenza Virus Vaccine Recomb Quad IM, Preserv and ABX Free 18-64 YRS 2022-04-03 00:00:[address] [facility] Influenza Virus Vaccine Recomb Quad IM, Preserv and ABX Free 18-64 YRS 2022-04-03 00:00:[address] [facility] Influenza Virus Vaccine Recomb Quad IM, Preserv and ABX Free 18-64 YRS 2022-04-03 00:00:[address] [facility] Influenza Virus Vaccine Recomb Quad IM, Preserv and ABX Free 18-64 YRS 2022-04-03 00:00:[address] [facility] Influenza Virus Vaccine Recomb Quad IM, Preserv and ABX Free 18-64 YRS 2022-04-03 00:00:[address] [facility] Influenza Virus Vaccine Recomb Quad IM, Preserv and ABX Free 18-64 YRS 2022-04-03 00:00:[address] [facility] Influenza Virus Vaccine Recomb Quad IM, Preserv and ABX Free 18-64 YRS 2022-04-03 00:00:[address] [facility] Influenza Virus Vaccine Recomb Quad IM, Preserv and ABX Free 18-64 YRS 2022-04-03 00:00:[address] [facility] Influenza Virus Vaccine Recomb Quad IM, Preserv and ABX Free 18-64 YRS 2022-04-03 00:00:[address] [facility] Influenza Virus Vaccine Recomb Quad IM, Preserv and ABX Free 18-64 YRS 2022-04-03 00:00:[address] [facility] Influenza Virus Vaccine Recomb Quad IM, Preserv and ABX Free 18-64 YRS 2022-04-03 00:00:[address] [facility] Influenza Virus Vaccine Recomb Quad IM, Preserv and ABX Free 18-64 YRS 2022-04-03 00:00:[address] [facility] Influenza Virus Vaccine Recomb Quad IM, Preserv and ABX Free 18-64 YRS 2022-04-03 00:00:[address] [facility] Influenza Virus Vaccine Recomb Quad IM, Preserv and ABX Free 18-64 YRS 2022-04-03 00:00:[address] [facility] Influenza Virus Vaccine Recomb Quad IM, Preserv and ABX Free 18-64 YRS 2022-04-03 00:00:[address] [facility] Influenza Virus Vaccine Recomb Quad IM, Preserv and ABX Free 18-64 YRS 2022-04-03 00:00:[address] [facility] Influenza Virus Vaccine Recomb Quad IM, Preserv and ABX Free 18-64 YRS 2022-04-03 00:00:[address] [facility] Influenza Virus Vaccine Recomb Quad IM, Preserv and ABX Free 18-64 YRS 2022-04-03 00:00:[address] [facility] Influenza Virus Vaccine Recomb Quad IM, Preserv and ABX Free 18-64 YRS 2022-04-03 00:00:[address] [facility] Influenza Virus Vaccine Recomb Quad IM, Preserv and ABX Free 18-64 YRS 2022-04-03 00:00:[address] [facility] Influenza Virus Vaccine Recomb Quad IM, Preserv and ABX Free 18-64 YRS 2022-04-03 00:00:[address] [facility] Influenza Virus Vaccine Recomb Quad IM, Preserv and ABX Free 18-64 YRS 2022-04-03 00:00:[address] [facility] Influenza Virus Vaccine Recomb Quad IM, Preserv and ABX Free 18-64 YRS 2022-04-03 00:00:[address] [facility] Influenza Virus Vaccine Recomb Quad IM, Preserv and ABX Free -64 YRS 2022-04-03 00:00:[address] [facility] Influenza Virus Vaccine Recomb Quad IM, Preserv and ABX Free -64 YRS 2022-04-03 00:00:[address] [facility] Influenza Virus Vaccine Recomb Quad IM, Preserv and ABX Free 18-64 YRS 2022-04-03 00:00:[address] [facility] Influenza Virus Vaccine Recomb Quad IM, Preserv and ABX Free 18-64 YRS 2022-04-03 00:00:[address] [facility] Influenza Virus Vaccine Recomb Quad IM, Preserv and ABX Free 18-64 YRS 2022-04-03 00:00:[address] [facility] Influenza Virus Vaccine Recomb Quad IM, Preserv and ABX Free 18-64 YRS 2022-04-03 00:00:[address] [facility] Influenza Virus Vaccine Recomb Quad IM, Preserv and ABX Free 18-64 YRS 2022-04-03 00:00:[address] [facility] Influenza Virus Vaccine Recomb Quad IM, Preserv and ABX Free 18-64 YRS 2022-04-03 00:00:[address] [facility] Influenza Virus Vaccine Recomb Quad IM, Preserv and ABX Free 18-64 YRS 2022-04-03 00:00:[address] [facility] Influenza Virus Vaccine Recomb Quad IM, Preserv and ABX Free 18-64 YRS 2022-04-03 00:00:[address] [facility] Influenza Virus Vaccine Recomb Quad IM, Preserv and ABX Free 18-64 YRS 2022-04-03 00:00:[address] [facility] Influenza Virus Vaccine Recomb Quad IM, Preserv and ABX Free -64 YRS 2022-04-03 00:00:[address] [facility] Influenza Virus Vaccine Recomb Quad IM, Preserv and ABX Free 18-64 YRS 2022-04-03 00:00:[address] [facility] Influenza Virus Vaccine Recomb Quad IM, Preserv and ABX Free 18-64 YRS 2022-04-03 00:00:[address] [facility] Influenza Virus Vaccine Recomb Quad IM, Preserv and ABX Free 18-64 YRS 2022-04-03 00:00:[address] [facility] Influenza Virus Vaccine Recomb Quad IM, Preserv and ABX Free -64 YRS 2022-04-03 00:00:[address] [facility] Influenza Virus Vaccine Recomb Quad IM, Preserv and ABX Free 18-64 YRS 2022-04-03 00:00:[address] [facility] Influenza Virus Vaccine Recomb Quad IM, Preserv and ABX Free 18-64 YRS 2022-04-03 00:00:[address] [facility] Influenza Virus Vaccine Recomb Quad IM, Preserv and ABX Free 18-64 YRS 2022-04-03 00:00:[address] [facility] Influenza Virus Vaccine Recomb Quad IM, Preserv and ABX Free -64 YRS 2022-04-03 00:00:[address] [facility] Influenza Virus Vaccine Recomb Quad IM, Preserv and ABX Free 18-64 YRS 2022-04-03 00:00:[address] [facility] Influenza Virus Vaccine Recomb Quad IM, Preserv and ABX Free -64 YRS 2022-04-03 00:00:[address] [facility] Influenza Virus Vaccine Recomb Quad IM, Preserv and ABX Free 18-64 YRS 2022-04-03 00:00:[address] [facility] Influenza Virus Vaccine Recomb Quad IM, Preserv and ABX Free 18-64 YRS 2022-04-03 00:00:[address] [facility] Influenza Virus Vaccine Recomb Quad IM, Preserv and ABX Free 18-64 YRS 2022-04-03 00:00:[address] [facility] Influenza Virus Vaccine Recomb Quad IM, Preserv and ABX Free 18-64 YRS 2022-04-03 00:00:[address] [facility] Influenza Virus Vaccine Recomb Quad IM, Preserv and ABX Free 18-64 YRS 2022-04-03 00:00:[address] [facility] Influenza Virus Vaccine Recomb Quad IM, Preserv and ABX Free 18-64 YRS 2022-04-03 00:00:[address] [facility] Influenza Virus Vaccine Recomb Quad IM, Preserv and ABX Free 18-64 YRS 2022-04-03 00:00:[address] [facility] Influenza Virus Vaccine Recomb Quad IM, Preserv and ABX Free 18-64 YRS 2022-04-03 00:00:[address] [facility] Influenza Virus Vaccine Recomb Quad IM, Preserv and ABX Free 18-64 YRS 2022-04-03 00:00:[address] [facility] Influenza Virus Vaccine Recomb Quad IM, Preserv and ABX Free 18-64 YRS 2022-04-03 00:00:[address] [facility] Influenza Virus Vaccine Recomb Quad IM, Preserv and ABX Free 18-64 YRS 2022-04-03 00:00:[address] [facility] Influenza Virus Vaccine Recomb Quad IM, Preserv and ABX Free 18-64 YRS 2022-04-03 00:00:[address] [facility] Influenza Virus Vaccine Recomb Quad IM, Preserv and ABX Free 18-64 YRS 2022-04-03 00:00:[address] [facility] Influenza Virus Vaccine Recomb Quad IM, Preserv and ABX Free 18-64 YRS 2022-04-03 00:00:[address] [facility] Influenza Virus Vaccine Recomb Quad IM, Preserv and ABX Free 18-64 YRS 2022-04-03 00:00:[address] [facility] Influenza Virus Vaccine Recomb Quad IM, Preserv and ABX Free 18-64 YRS 2022-04-03 00:00:[address] [facility] Influenza Virus Vaccine Recomb Quad IM, Preserv and ABX Free 18-64 YRS 2022-04-03 00:00:[address] [facility] Influenza Virus Vaccine Recomb Quad IM, Preserv and ABX Free 18-64 YRS 2022-04-03 00:00:[address] [facility] Influenza Virus Vaccine Recomb Quad IM, Preserv and ABX Free 18-64 YRS 2022-04-03 00:00:[address] [facility] Influenza Virus Vaccine Recomb Quad IM, Preserv and ABX Free 18-64 YRS 2022-04-03 00:00:[address] [facility] Influenza Virus Vaccine Recomb Quad IM, Preserv and ABX Free 18-64 YRS 2022-04-03 00:00:[address] [facility] Influenza Virus Vaccine Recomb Quad IM, Preserv and ABX Free 18-64 YRS 2022-04-03 00:00:[address] [facility] Influenza Virus Vaccine Recomb Quad IM, Preserv and ABX Free 18-64 YRS 2022-04-03 00:00:[address] [facility] Influenza Virus Vaccine Recomb Quad IM, Preserv and ABX Free 18-64 YRS 2022-04-03 00:00:[address] [facility] Influenza Virus Vaccine Recomb Quad IM, Preserv and ABX Free 18-64 YRS 2022-04-03 00:00:[address] [facility] Influenza Virus Vaccine Recomb Quad IM, Preserv and ABX Free 18-64 YRS 2022-04-03 00:00:[address] [facility] Influenza Virus Vaccine Recomb Quad IM, Preserv and ABX Free 18-64 YRS 2022-04-03 00:00:[address] [facility] Influenza Virus Vaccine Recomb Quad IM, Preserv and ABX Free 18-64 YRS 2022-04-03 00:00:[address] [facility] Influenza Virus Vaccine Recomb Quad IM, Preserv and ABX Free 18-64 YRS 2022-04-03 00:00:[address] [facility] Influenza Virus Vaccine Recomb Quad IM, Preserv and ABX Free 18-64 YRS 2022-04-03 00:00:[address] [facility] Influenza Virus Vaccine Recomb Quad IM, Preserv and ABX Free 18-64 YRS 2022-04-03 00:00:[address] [facility] Influenza Virus Vaccine Recomb Quad IM, Preserv and ABX Free 18-64 YRS 2022-04-03 00:00:[address] [facility] Influenza Virus Vaccine Recomb Quad IM, Preserv and ABX Free 18-64 YRS 2022-04-03 00:00:[address] [facility] Influenza Virus Vaccine Recomb Quad IM, Preserv and ABX Free 18-64 YRS 2022-04-03 00:00:[address] [facility] Influenza Virus Vaccine Recomb Quad IM, Preserv and ABX Free 18-64 YRS 2022-04-03 00:00:[address] [facility] Influenza Virus Vaccine Recomb Quad IM, Preserv and ABX Free 18-64 YRS 2022-04-03 00:00:[address] [facility] Influenza Virus Vaccine Recomb Quad IM, Preserv and ABX Free 18-64 YRS 2022-04-03 00:00:[address] [facility] Influenza Virus Vaccine Recomb Quad IM, Preserv and ABX Free 18-64 YRS 2022-04-03 00:00:[address] [facility] Influenza Virus Vaccine Recomb Quad IM, Preserv and ABX Free 18-64 YRS 2022-04-03 00:00:[address] [facility] Influenza Virus Vaccine Recomb Quad IM, Preserv and ABX Free 18-64 YRS 2022-04-03 00:00:[address] [facility] Influenza Virus Vaccine Recomb Quad IM, Preserv and ABX Free 18-64 YRS 2022-04-03 00:00:[address] [facility] Influenza Virus Vaccine Recomb Quad IM, Preserv and ABX Free 18-64 YRS 2022-04-03 00:00:[address] [facility] Influenza Virus Vaccine Recomb Quad IM, Preserv and ABX Free 18-64 YRS 2022-04-03 00:00:[address] [facility] Influenza Virus Vaccine Recomb Quad IM, Preserv and ABX Free 18-64 YRS 2022-04-03 00:00:[address] [facility] Influenza Virus Vaccine Recomb Quad IM, Preserv and ABX Free 18-64 YRS 2022-04-03 00:00:[address] [facility] Influenza Virus Vaccine Recomb Quad IM, Preserv and ABX Free 18-64 YRS 2022-04-03 00:00:[address] [facility] Influenza Virus Vaccine Recomb Quad IM, Preserv and ABX Free 18-64 YRS 2022-04-03 00:00:[address] [facility] Influenza Virus Vaccine Recomb Quad IM, Preserv and ABX Free 18-64 YRS 2022-04-03 00:00:[address] [facility] Influenza Virus Vaccine Recomb Quad IM, Preserv and ABX Free 18-64 YRS 2022-04-03 00:00:[address] [facility] Influenza Virus Vaccine Recomb Quad IM, Preserv and ABX Free 18-64 YRS 2022-04-03 00:00:[address] [facility] Influenza Virus Vaccine Recomb Quad IM, Preserv and ABX Free 18-64 YRS 2022-04-03 00:00:[address] [facility] Influenza Virus Vaccine Recomb Quad IM, Preserv and ABX Free 18-64 YRS 2022-04-03 00:00:[address] [facility] Influenza Virus Vaccine Recomb Quad IM, Preserv and ABX Free -64 YRS 2022-04-03 00:00:[address] [facility] Influenza Virus Vaccine Recomb Quad IM, Preserv and ABX Free 18-64 YRS 2022-04-03 00:00:[address] [facility] Influenza Virus Vaccine Recomb Quad IM, Preserv and ABX Free 18-64 YRS 2022-04-03 00:00:[address] [facility] Influenza Virus Vaccine Recomb Quad IM, Preserv and ABX Free 18-64 YRS 2022-04-03 00:00:[address] [facility] Influenza Virus Vaccine Recomb Quad IM, Preserv and ABX Free 18-64 YRS 2022-04-03 00:00:[address] [facility] Influenza Virus Vaccine Recomb Quad IM, Preserv and ABX Free 18-64 YRS 2022-04-03 00:00:[address] [facility] Influenza Virus Vaccine Recomb Quad IM, Preserv and ABX Free 18-64 YRS 2022-04-03 00:00:[address] [facility] Influenza Virus Vaccine Recomb Quad IM, Preserv and ABX Free 18-64 YRS 2022-04-03 00:00:[address] [facility] SARS-COV-2 COVID-19 MODERNA 0.25ML BOOSTER VACCINE 2021-06-04 00:00:[address] [facility] SARS-COV-2 COVID-19 MODERNA 0.25ML BOOSTER VACCINE 2021-06-04 00:00:[address] [facility] SARS-COV-2 COVID-19 MODERNA 0.25ML BOOSTER VACCINE 2021-06-04 00:00:[address] [facility] SARS-COV-2 COVID-19 MODERNA 0.25ML BOOSTER VACCINE 2021-06-04 00:00:[address] [facility] SARS-COV-2 COVID-19 MODERNA 0.25ML BOOSTER VACCINE 2021-06-04 00:00:[address] [facility] SARS-COV-2 COVID-19 MODERNA 0.25ML BOOSTER VACCINE 2021-06-04 00:00:[address] [facility] SARS-COV-2 COVID-19 MODERNA 0.25ML BOOSTER VACCINE 2021-06-04 00:00:[address] [facility] SARS-COV-2 COVID-19 MODERNA 0.25ML BOOSTER VACCINE 2021-06-04 00:00:[address] [facility] SARS-COV-2 COVID-19 MODERNA 0.25ML BOOSTER VACCINE 2021-06-04 00:00:[address] [facility] SARS-COV-2 COVID-19 MODERNA 0.25ML BOOSTER VACCINE 2021-06-04 00:00:[address] [facility] SARS-COV-2 COVID-19 MODERNA 0.25ML BOOSTER VACCINE 2021-06-04 00:00:[address] [facility] SARS-COV-2 COVID-19 MODERNA 0.25ML BOOSTER VACCINE 2021-06-04 00:00:[address] [facility] SARS-COV-2 COVID-19 MODERNA 0.25ML BOOSTER VACCINE 2021-06-04 00:00:[address] [facility] SARS-COV-2 COVID-19 MODERNA 0.25ML BOOSTER VACCINE 2021-06-04 00:00:[address] [facility] SARS-COV-2 COVID-19 MODERNA 0.25ML BOOSTER VACCINE 2021-06-04 00:00:[address] [facility] SARS-COV-2 COVID-19 MODERNA 0.25ML BOOSTER VACCINE 2021-06-04 00:00:[address] [facility] SARS-COV-2 COVID-19 MODERNA 0.25ML BOOSTER VACCINE 2021-06-04 00:00:[address] [facility] SARS-COV-2 COVID-19 MODERNA 0.25ML BOOSTER VACCINE 2021-06-04 00:00:[address] [facility] SARS-COV-2 COVID-19 MODERNA 0.25ML BOOSTER VACCINE 2021-06-04 00:00:[address] [facility] SARS-COV-2 COVID-19 MODERNA 0.25ML BOOSTER VACCINE 2021-06-04 00:00:[address] [facility] SARS-COV-2 COVID-19 MODERNA 0.25ML BOOSTER VACCINE 2021-06-04 00:00:[address] [facility] SARS-COV-2 COVID-19 MODERNA 0.25ML BOOSTER VACCINE 2021-06-04 00:00:[address] [facility] SARS-COV-2 COVID-19 MODERNA 0.25ML BOOSTER VACCINE 2021-06-04 00:00:[address] [facility] SARS-COV-2 COVID-19 MODERNA 0.25ML BOOSTER VACCINE 2021-06-04 00:00:[address] [facility] SARS-COV-2 COVID-19 MODERNA 0.25ML BOOSTER VACCINE 2021-06-04 00:00:[address] [facility] SARS-COV-2 COVID-19 MODERNA 0.25ML BOOSTER VACCINE 2021-06-04 00:00:[address] [facility] SARS-COV-2 COVID-19 MODERNA 0.25ML BOOSTER VACCINE 2021-06-04 00:00:[address] [facility] SARS-COV-2 COVID-19 MODERNA 0.25ML BOOSTER VACCINE 2021-06-04 00:00:[address] [facility] SARS-COV-2 COVID-19 MODERNA 0.25ML BOOSTER VACCINE 2021-06-04 00:00:[address] [facility] SARS-COV-2 COVID-19 MODERNA 0.25ML BOOSTER VACCINE 2021-06-04 00:00:[address] [facility] SARS-COV-2 COVID-19 MODERNA 0.25ML BOOSTER VACCINE 2021-06-04 00:00:[address] [facility] SARS-COV-2 COVID-19 MODERNA 0.25ML BOOSTER VACCINE 2021-06-04 00:00:[address] [facility] SARS-COV-2 COVID-19 MODERNA 0.25ML BOOSTER VACCINE 2021-06-04 00:00:[address] [facility] SARS-COV-2 COVID-19 MODERNA 0.25ML BOOSTER VACCINE 2021-06-04 00:00:[address] [facility] SARS-COV-2 COVID-19 MODERNA 0.25ML BOOSTER VACCINE 2021-06-04 00:00:[address] [facility] SARS-COV-2 COVID-19 MODERNA 0.25ML BOOSTER VACCINE 2021-06-04 00:00:[address] [facility] SARS-COV-2 COVID-19 MODERNA 0.25ML BOOSTER VACCINE 2021-06-04 00:00:[address] [facility] SARS-COV-2 COVID-19 MODERNA 0.25ML BOOSTER VACCINE 2021-06-04 00:00:[address] [facility] SARS-COV-2 COVID-19 MODERNA 0.25ML BOOSTER VACCINE 2021-06-04 00:00:[address] [facility] SARS-COV-2 COVID-19 MODERNA 0.25ML BOOSTER VACCINE 2021-06-04 00:00:[address] [facility] SARS-COV-2 COVID-19 MODERNA 0.25ML BOOSTER VACCINE 2021-06-04 00:00:[address] [facility] SARS-COV-2 COVID-19 MODERNA 0.25ML BOOSTER VACCINE 2021-06-04 00:00:[address] [facility] SARS-COV-2 COVID-19 MODERNA 0.25ML BOOSTER VACCINE 2021-06-04 00:00:[address] [facility] SARS-COV-2 COVID-19 MODERNA 0.25ML BOOSTER VACCINE 2021-06-04 00:00:[address] [facility] SARS-COV-2 COVID-19 MODERNA 0.25ML BOOSTER VACCINE 2021-06-04 00:00:[address] [facility] SARS-COV-2 COVID-19 MODERNA 0.25ML BOOSTER VACCINE 2021-06-04 00:00:[address] [facility] SARS-COV-2 COVID-19 MODERNA 0.25ML BOOSTER VACCINE 2021-06-04 00:00:[address] [facility] SARS-COV-2 COVID-19 MODERNA 0.25ML BOOSTER VACCINE 2021-06-04 00:00:[address] [facility] SARS-COV-2 COVID-19 MODERNA 0.25ML BOOSTER VACCINE 2021-06-04 00:00:[address] [facility] SARS-COV-2 COVID-19 MODERNA 0.25ML BOOSTER VACCINE 2021-06-04 00:00:[address] [facility] SARS-COV-2 COVID-19 MODERNA 0.25ML BOOSTER VACCINE 2021-06-04 00:00:[address] [facility] SARS-COV-2 COVID-19 MODERNA 0.25ML BOOSTER VACCINE 2021-06-04 00:00:[address] [facility] SARS-COV-2 COVID-19 MODERNA 0.25ML BOOSTER VACCINE 2021-06-04 00:00:[address] [facility] SARS-COV-2 COVID-19 MODERNA 0.25ML BOOSTER VACCINE 2021-06-04 00:00:[address] [facility] SARS-COV-2 COVID-19 MODERNA 0.25ML BOOSTER VACCINE 2021-06-04 00:00:[address] [facility] SARS-COV-2 COVID-19 MODERNA 0.25ML BOOSTER VACCINE 2021-06-04 00:00:[address] [facility] SARS-COV-2 COVID-19 MODERNA 0.25ML BOOSTER VACCINE 2021-06-04 00:00:[address] [facility] SARS-COV-2 COVID-19 MODERNA 0.25ML BOOSTER VACCINE 2021-06-04 00:00:[address] [facility] SARS-COV-2 COVID-19 MODERNA 0.25ML BOOSTER VACCINE 2021-06-04 00:00:[address] [facility] SARS-COV-2 COVID-19 MODERNA 0.25ML BOOSTER VACCINE 2021-06-04 00:00:[address] [facility] SARS-COV-2 COVID-19 MODERNA 0.25ML BOOSTER VACCINE 2021-06-04 00:00:[address] [facility] SARS-COV-2 COVID-19 MODERNA 0.25ML BOOSTER VACCINE 2021-06-04 00:00:[address] [facility] SARS-COV-2 COVID-19 MODERNA 0.25ML BOOSTER VACCINE 2021-06-04 00:00:[address] [facility] SARS-COV-2 COVID-19 MODERNA 0.25ML BOOSTER VACCINE 2021-06-04 00:00:[address] [facility] SARS-COV-2 COVID-19 MODERNA 0.25ML BOOSTER VACCINE 2021-06-04 00:00:[address] [facility] SARS-COV-2 COVID-19 MODERNA 0.25ML BOOSTER VACCINE 2021-06-04 00:00:[address] [facility] SARS-COV-2 COVID-19 MODERNA 0.25ML BOOSTER VACCINE 2021-06-04 00:00:[address] [facility] SARS-COV-2 COVID-19 MODERNA 0.25ML BOOSTER VACCINE 2021-06-04 00:00:[address] [facility] SARS-COV-2 COVID-19 MODERNA 0.25ML BOOSTER VACCINE 2021-06-04 00:00:[address] [facility] SARS-COV-2 COVID-19 MODERNA 0.25ML BOOSTER VACCINE 2021-06-04 00:00:[address] [facility] SARS-COV-2 COVID-19 MODERNA 0.25ML BOOSTER VACCINE 2021-06-04 00:00:[address] [facility] SARS-COV-2 COVID-19 MODERNA 0.25ML BOOSTER VACCINE 2021-06-04 00:00:[address] [facility] SARS-COV-2 COVID-19 MODERNA 0.25ML BOOSTER VACCINE 2021-06-04 00:00:[address] [facility] SARS-COV-2 COVID-19 MODERNA 0.25ML BOOSTER VACCINE 2021-06-04 00:00:[address] [facility] SARS-COV-2 COVID-19 MODERNA 0.25ML BOOSTER VACCINE 2021-06-04 00:00:[address] [facility] SARS-COV-2 COVID-19 MODERNA 0.25ML BOOSTER VACCINE 2021-06-04 00:00:[address] [facility] SARS-COV-2 COVID-19 MODERNA 0.25ML BOOSTER VACCINE 2021-06-04 00:00:[address] [facility] SARS-COV-2 COVID-19 MODERNA 0.25ML BOOSTER VACCINE 2021-06-04 00:00:[address] [facility] SARS-COV-2 COVID-19 MODERNA 0.25ML BOOSTER VACCINE 2021-06-04 00:00:[address] [facility] SARS-COV-2 COVID-19 MODERNA 0.25ML BOOSTER VACCINE 2021-06-04 00:00:[address] [facility] SARS-COV-2 COVID-19 MODERNA 0.25ML BOOSTER VACCINE 2021-06-04 00:00:[address] [facility] SARS-COV-2 COVID-19 MODERNA 0.25ML BOOSTER VACCINE 2021-06-04 00:00:[address] [facility] SARS-COV-2 COVID-19 MODERNA 0.25ML BOOSTER VACCINE 2021-06-04 00:00:[address] [facility] SARS-COV-2 COVID-19 MODERNA 0.25ML BOOSTER VACCINE 2021-06-04 00:00:[address] [facility] SARS-COV-2 COVID-19 MODERNA 0.25ML BOOSTER VACCINE 2021-06-04 00:00:[address] [facility] SARS-COV-2 COVID-19 MODERNA 0.25ML BOOSTER VACCINE 2021-06-04 00:00:[address] [facility] SARS-COV-2 COVID-19 MODERNA 0.25ML BOOSTER VACCINE 2021-06-04 00:00:[address] [facility] SARS-COV-2 COVID-19 MODERNA 0.25ML BOOSTER VACCINE 2021-06-04 00:00:[address] [facility] SARS-COV-2 COVID-19 MODERNA 0.25ML BOOSTER VACCINE 2021-06-04 00:00:[address] [facility] SARS-COV-2 COVID-19 MODERNA 0.25ML BOOSTER VACCINE 2021-06-04 00:00:[address] [facility] SARS-COV-2 COVID-19 MODERNA 0.25ML BOOSTER VACCINE 2021-06-04 00:00:[address] [facility] SARS-COV-2 COVID-19 MODERNA 0.25ML BOOSTER VACCINE 2021-06-04 00:00:[address] [facility] SARS-COV-2 COVID-19 MODERNA 0.25ML BOOSTER VACCINE 2021-06-04 00:00:[address] [facility] SARS-COV-2 COVID-19 MODERNA 0.25ML BOOSTER VACCINE 2021-06-04 00:00:[address] [facility] SARS-COV-2 COVID-19 MODERNA 0.25ML BOOSTER VACCINE 2021-06-04 00:00:[address] [facility] SARS-COV-2 COVID-19 MODERNA 0.25ML BOOSTER VACCINE 2021-06-04 00:00:[address] [facility] SARS-COV-2 COVID-19 MODERNA 0.25ML BOOSTER VACCINE 2021-06-04 00:00:[address] [facility] SARS-COV-2 COVID-19 MODERNA 0.25ML BOOSTER VACCINE 2021-06-04 00:00:[address] [facility] SARS-COV-2 COVID-19 MODERNA 0.25ML BOOSTER VACCINE 2021-06-04 00:00:[address] [facility] SARS-COV-2 COVID-19 MODERNA 0.25ML BOOSTER VACCINE 2021-06-04 00:00:[address] [facility] SARS-COV-2 COVID-19 MODERNA 0.25ML BOOSTER VACCINE 2021-06-04 00:00:[address] [facility] SARS-COV-2 COVID-19 MODERNA 0.25ML BOOSTER VACCINE 2021-06-04 00:00:[address] [facility] SARS-COV-2 COVID-19 MODERNA 0.25ML BOOSTER VACCINE 2021-06-04 00:00:[address] [facility] SARS-COV-2 COVID-19 MODERNA 0.25ML BOOSTER VACCINE 2021-06-04 00:00:[address] [facility] SARS-COV-2 COVID-19 MODERNA 0.25ML BOOSTER VACCINE 2021-06-04 00:00:[address] [facility] SARS-COV-2 COVID-19 MODERNA 0.25ML BOOSTER VACCINE 2021-06-04 00:00:[address] [facility] SARS-COV-2 COVID-19 MODERNA 0.25ML BOOSTER VACCINE 2021-06-04 00:00:[address] [facility] SARS-COV-2 COVID-19 MODERNA 0.25ML BOOSTER VACCINE 2021-06-04 00:00:[address] [facility] SARS-COV-2 COVID-19 MODERNA 0.25ML BOOSTER VACCINE 2021-06-04 00:00:[address] [facility] SARS-COV-2 COVID-19 MODERNA 0.25ML BOOSTER VACCINE 2021-06-04 00:00:[address] [facility] SARS-COV-2 COVID-19 MODERNA 0.25ML BOOSTER VACCINE 2021-06-04 00:00:[address] [facility] SARS-COV-2 COVID-19 MODERNA 0.25ML BOOSTER VACCINE 2021-06-04 00:00:[address] [facility] SARS-COV-2 COVID-19 MODERNA 0.25ML BOOSTER VACCINE 2021-06-04 00:00:[address] [facility] SARS-COV-2 COVID-19 MODERNA 0.25ML BOOSTER VACCINE 2021-06-04 00:00:[address] [facility] SARS-COV-2 COVID-19 MODERNA 0.25ML BOOSTER VACCINE 2021-06-04 00:00:[address] [facility] SARS-COV-2 COVID-19 MODERNA 0.25ML BOOSTER VACCINE 2021-06-04 00:00:[address] [facility] SARS-COV-2 COVID-19 MODERNA 0.25ML BOOSTER VACCINE 2021-06-04 00:00:[address] [facility] SARS-COV-2 COVID-19 MODERNA 0.25ML BOOSTER VACCINE 2021-06-04 00:00:[address] [facility] SARS-COV-2 COVID-19 MODERNA 0.25ML BOOSTER VACCINE 2021-06-04 00:00:[address] [facility] SARS-COV-2 COVID-19 MODERNA 0.25ML BOOSTER VACCINE 2021-06-04 00:00:[address] [facility] SARS-COV-2 COVID-19 MODERNA 0.25ML BOOSTER VACCINE 2021-06-04 00:00:[address] [facility] SARS-COV-2 COVID-19 MODERNA 0.25ML BOOSTER VACCINE 2021-06-04 00:00:[address] [facility] SARS-COV-2 COVID-19 MODERNA 0.25ML BOOSTER VACCINE 2021-06-04 00:00:[address] [facility] SARS-COV-2 COVID-19 MODERNA 0.25ML BOOSTER VACCINE 2021-06-04 00:00:[address] [facility] SARS-COV-2 COVID-19 MODERNA 0.25ML BOOSTER VACCINE 2021-06-04 00:00:[address] [facility] SARS-COV-2 COVID-19 MODERNA 0.25ML BOOSTER VACCINE 2021-06-04 00:00:[address] [facility] SARS-COV-2 COVID-19 MODERNA 0.25ML BOOSTER VACCINE 2021-06-04 00:00:[address] [facility] SARS-COV-2 COVID-19 MODERNA 0.25ML BOOSTER VACCINE 2021-06-04 00:00:[address] [facility] SARS-COV-2 COVID-19 MODERNA 0.25ML BOOSTER VACCINE 2021-06-04 00:00:[address] [facility] SARS-COV-2 COVID-19 MODERNA 0.25ML BOOSTER VACCINE 2021-06-04 00:00:[address] [facility] SARS-COV-2 COVID-19 MODERNA 0.25ML BOOSTER VACCINE 2021-06-04 00:00:[address] [facility] SARS-COV-2 COVID-19 MODERNA 0.25ML BOOSTER VACCINE 2021-06-04 00:00:[address] [facility] SARS-COV-2 COVID-19 MODERNA 0.25ML BOOSTER VACCINE 2021-06-04 00:00:[address] [facility] SARS-COV-2 COVID-19 MODERNA 0.25ML BOOSTER VACCINE 2021-06-04 00:00:[address] [facility] SARS-COV-2 COVID-19 MODERNA 0.25ML BOOSTER VACCINE 2021-06-04 00:00:[address] [facility] SARS-COV-2 COVID-19 MODERNA 0.25ML BOOSTER VACCINE 2021-06-04 00:00:[address] [facility] SARS-COV-2 COVID-19 MODERNA 0.25ML BOOSTER VACCINE 2021-06-04 00:00:[address] [facility] SARS-COV-2 COVID-19 MODERNA 0.25ML BOOSTER VACCINE 2021-06-04 00:00:[address] [facility] SARS-COV-2 COVID-19 MODERNA 0.25ML BOOSTER VACCINE 2021-06-04 00:00:[address] [facility] SARS-COV-2 COVID-19 MODERNA 0.25ML BOOSTER VACCINE 2021-06-04 00:00:[address] [facility] SARS-COV-2 COVID-19 MODERNA 0.25ML BOOSTER VACCINE 2021-06-04 00:00:[address] [facility] SARS-COV-2 COVID-19 MODERNA 0.25ML BOOSTER VACCINE 2021-06-04 00:00:[address] [facility] SARS-COV-2 COVID-19 MODERNA 0.25ML BOOSTER VACCINE 2021-06-04 00:00:[address] [facility] SARS-COV-2 COVID-19 MODERNA 0.25ML BOOSTER VACCINE 2021-06-04 00:00:[address] [facility] SARS-COV-2 COVID-19 MODERNA 0.25ML BOOSTER VACCINE 2021-06-04 00:00:[address] [facility] SARS-COV-2 COVID-19 MODERNA 0.25ML BOOSTER VACCINE 2021-06-04 00:00:[address] [facility] SARS-COV-2 COVID-19 MODERNA 0.25ML BOOSTER VACCINE 2021-06-04 00:00:[address] [facility] SARS-COV-2 COVID-19 MODERNA 0.25ML BOOSTER VACCINE 2021-06-04 00:00:[address] [facility] SARS-COV-2 COVID-19 MODERNA 0.25ML BOOSTER VACCINE 2021-06-04 00:00:[address] [facility] SARS-COV-2 COVID-19 MODERNA 0.25ML BOOSTER VACCINE 2021-06-04 00:00:[address] [facility] SARS-COV-2 COVID-19 MODERNA VACCINE 2020-09-06 00:00:[address] [facility] SARS-COV-2 COVID-19 MODERNA VACCINE 2020-09-06 00:00:[address] [facility] SARS-COV-2 COVID-19 MODERNA VACCINE 2020-09-06 00:00:[address] [facility] SARS-COV-2 COVID-19 MODERNA VACCINE 2020-09-06 00:00:[address] [facility] SARS-COV-2 COVID-19 MODERNA 12+ YRS VACCINE 2020-09-06 00:00:[address] [facility] SARS-COV-2 COVID-19 MODERNA 12+ YRS VACCINE 2020-09-06 00:00:[address] [facility] SARS-COV-2 COVID-19 MODERNA 12+ YRS VACCINE 2020-09-06 00:00:[address] [facility] SARS-COV-2 COVID-19 MODERNA 12+ YRS VACCINE 2020-09-06 00:00:[address] [facility] SARS-COV-2 COVID-19 MODERNA 12+ YRS VACCINE 2020-09-06 00:00:[address] [facility] SARS-COV-2 COVID-19 MODERNA 12+ YRS VACCINE 2020-09-06 00:00:[address] [facility] SARS-COV-2 COVID-19 MODERNA 12+ YRS VACCINE 2020-09-06 00:00:[address] [facility] SARS-COV-2 COVID-19 MODERNA 12+ YRS VACCINE 2020-09-06 00:00:[address] [facility] SARS-COV-2 COVID-19 MODERNA 12+ YRS VACCINE 2020-09-06 00:00:[address] [facility] SARS-COV-2 COVID-19 MODERNA 12+ YRS VACCINE 2020-09-06 00:00:[address] [facility] SARS-COV-2 COVID-19 MODERNA 12+ YRS VACCINE 2020-09-06 00:00:[address] [facility] SARS-COV-2 COVID-19 MODERNA 12+ YRS VACCINE 2020-09-06 00:00:[address] [facility] SARS-COV-2 COVID-19 MODERNA 12+ YRS VACCINE 2020-09-06 00:00:[address] [facility] SARS-COV-2 COVID-19 MODERNA 12+ YRS VACCINE 2020-09-06 00:00:[address] [facility] SARS-COV-2 COVID-19 MODERNA 12+ YRS VACCINE 2020-09-06 00:00:[address] [facility] SARS-COV-2 COVID-19 MODERNA 12+ YRS VACCINE 2020-09-06 00:00:[address] [facility] SARS-COV-2 COVID-19 MODERNA 12+ YRS VACCINE 2020-09-06 00:00:[address] [facility] SARS-COV-2 COVID-19 MODERNA 12+ YRS VACCINE 2020-09-06 00:00:[address] [facility] SARS-COV-2 COVID-19 MODERNA 12+ YRS VACCINE 2020-09-06 00:00:[address] [facility] SARS-COV-2 COVID-19 MODERNA 12+ YRS VACCINE 2020-09-06 00:00:[address] [facility] SARS-COV-2 COVID-19 MODERNA 12+ YRS VACCINE 2020-09-06 00:00:[address] [facility] SARS-COV-2 COVID-19 MODERNA 12+ YRS VACCINE 2020-09-06 00:00:[address] [facility] SARS-COV-2 COVID-19 MODERNA 12+ YRS VACCINE 2020-09-06 00:00:[address] [facility] SARS-COV-2 COVID-19 MODERNA 12+ YRS VACCINE 2020-09-06 00:00:[address] [facility] SARS-COV-2 COVID-19 MODERNA 12+ YRS VACCINE 2020-09-06 00:00:[address] [facility] SARS-COV-2 COVID-19 MODERNA 12+ YRS VACCINE 2020-09-06 00:00:[address] [facility] SARS-COV-2 COVID-19 MODERNA 12+ YRS VACCINE 2020-09-06 00:00:[address] [facility] SARS-COV-2 COVID-19 MODERNA 12+ YRS VACCINE 2020-09-06 00:00:[address] [facility] SARS-COV-2 COVID-19 MODERNA 12+ YRS VACCINE 2020-09-06 00:00:[address] [facility] SARS-COV-2 COVID-19 MODERNA 12+ YRS VACCINE 2020-09-06 00:00:[address] [facility] SARS-COV-2 COVID-19 MODERNA 12+ YRS VACCINE 2020-09-06 00:00:[address] [facility] SARS-COV-2 COVID-19 MODERNA 12+ YRS VACCINE 2020-09-06 00:00:[address] [facility] SARS-COV-2 COVID-19 MODERNA 12+ YRS VACCINE 2020-09-06 00:00:[address] [facility] SARS-COV-2 COVID-19 MODERNA 12+ YRS VACCINE 2020-09-06 00:00:[address] [facility] SARS-COV-2 COVID-19 MODERNA 12+ YRS VACCINE 2020-09-06 00:00:[address] [facility] SARS-COV-2 COVID-19 MODERNA 12+ YRS VACCINE 2020-09-06 00:00:[address] [facility] SARS-COV-2 COVID-19 MODERNA 12+ YRS VACCINE 2020-09-06 00:00:[address] [facility] SARS-COV-2 COVID-19 MODERNA 12+ YRS VACCINE 2020-09-06 00:00:00 Completed [facility] SARS-COV-2 COVID-19 MODERNA 12+ YRS VACCINE 2020-09-06 00:00:[address] [facility] SARS-COV-2 COVID-19 MODERNA 12+ YRS VACCINE 2020-09-06 00:00:[address] [facility] SARS-COV-2 COVID-19 MODERNA 12+ YRS VACCINE 2020-09-06 00:00:[address] [facility] SARS-COV-2 COVID-19 MODERNA 12+ YRS VACCINE 2020-09-06 00:00:[address] [facility] SARS-COV-2 COVID-19 MODERNA 12+ YRS VACCINE 2020-09-06 00:00:[address] [facility] SARS-COV-2 COVID-19 MODERNA 12+ YRS VACCINE 2020-09-06 00:00:[address] [facility] SARS-COV-2 COVID-19 MODERNA 12+ YRS VACCINE 2020-09-06 00:00:[address] [facility] SARS-COV-2 COVID-19 MODERNA 12+ YRS VACCINE 2020-09-06 00:00:[address] [facility] SARS-COV-2 COVID-19 MODERNA 12+ YRS VACCINE 2020-09-06 00:00:[address] [facility] SARS-COV-2 COVID-19 MODERNA 12+ YRS VACCINE 2020-09-06 00:00:[address] [facility] SARS-COV-2 COVID-19 MODERNA 12+ YRS VACCINE 2020-09-06 00:00:[address] [facility] SARS-COV-2 COVID-19 MODERNA 12+ YRS VACCINE 2020-09-06 00:00:[address] [facility] SARS-COV-2 COVID-19 MODERNA 12+ YRS VACCINE 2020-09-06 00:00:[address] [facility] SARS-COV-2 COVID-19 MODERNA 12+ YRS VACCINE 2020-09-06 00:00:[address] [facility] SARS-COV-2 COVID-19 MODERNA 12+ YRS VACCINE 2020-09-06 00:00:[address] [facility] SARS-COV-2 COVID-19 MODERNA 12+ YRS VACCINE 2020-09-06 00:00:[address] [facility] SARS-COV-2 COVID-19 MODERNA 12+ YRS VACCINE 2020-09-06 00:00:[address] [facility] SARS-COV-2 COVID-19 MODERNA 12+ YRS VACCINE 2020-09-06 00:00:[address] [facility] SARS-COV-2 COVID-19 MODERNA 12+ YRS VACCINE 2020-09-06 00:00:[address] [facility] SARS-COV-2 COVID-19 MODERNA 12+ YRS VACCINE 2020-09-06 00:00:[address] [facility] SARS-COV-2 COVID-19 MODERNA 12+ YRS VACCINE 2020-09-06 00:00:[address] [facility] SARS-COV-2 COVID-19 MODERNA 12+ YRS VACCINE 2020-09-06 00:00:[address] [facility] SARS-COV-2 COVID-19 MODERNA 12+ YRS VACCINE 2020-09-06 00:00:[address] [facility] SARS-COV-2 COVID-19 MODERNA 12+ YRS VACCINE 2020-09-06 00:00:[address] [facility] SARS-COV-2 COVID-19 MODERNA 12+ YRS VACCINE 2020-09-06 00:00:[address] [facility] SARS-COV-2 COVID-19 MODERNA 12+ YRS VACCINE 2020-09-06 00:00:[address] [facility] SARS-COV-2 COVID-19 MODERNA 12+ YRS VACCINE 2020-09-06 00:00:[address] [facility] SARS-COV-2 COVID-19 MODERNA 12+ YRS VACCINE 2020-09-06 00:00:[address] [facility] SARS-COV-2 COVID-19 MODERNA 12+ YRS VACCINE 2020-09-06 00:00:[address] [facility] SARS-COV-2 COVID-19 MODERNA 12+ YRS VACCINE 2020-09-06 00:00:[address] [facility] SARS-COV-2 COVID-19 MODERNA 12+ YRS VACCINE 2020-09-06 00:00:[address] [facility] SARS-COV-2 COVID-19 MODERNA 12+ YRS VACCINE 2020-09-06 00:00:[address] [facility] SARS-COV-2 COVID-19 MODERNA 12+ YRS VACCINE 2020-09-06 00:00:[address] [facility] SARS-COV-2 COVID-19 MODERNA 12+ YRS VACCINE 2020-09-06 00:00:[address] [facility] SARS-COV-2 COVID-19 MODERNA 12+ YRS VACCINE 2020-09-06 00:00:[address] [facility] SARS-COV-2 COVID-19 MODERNA 12+ YRS VACCINE 2020-09-06 00:00:[address] [facility] SARS-COV-2 COVID-19 MODERNA 12+ YRS VACCINE 2020-09-06 00:00:[address] [facility] SARS-COV-2 COVID-19 MODERNA 12+ YRS VACCINE 2020-09-06 00:00:[address] [facility] SARS-COV-2 COVID-19 MODERNA 12+ YRS VACCINE 2020-09-06 00:00:[address] [facility] SARS-COV-2 COVID-19 MODERNA 12+ YRS VACCINE 2020-09-06 00:00:[address] [facility] SARS-COV-2 COVID-19 MODERNA 12+ YRS VACCINE 2020-09-06 00:00:[address] [facility] SARS-COV-2 COVID-19 MODERNA 12+ YRS VACCINE 2020-09-06 00:00:[address] [facility] SARS-COV-2 COVID-19 MODERNA 12+ YRS VACCINE 2020-09-06 00:00:[address] [facility] SARS-COV-2 COVID-19 MODERNA 12+ YRS VACCINE 2020-09-06 00:00:[address] [facility] SARS-COV-2 COVID-19 MODERNA 12+ YRS VACCINE 2020-09-06 00:00:[address] [facility] SARS-COV-2 COVID-19 MODERNA 12+ YRS VACCINE 2020-09-06 00:00:[address] [facility] SARS-COV-2 COVID-19 MODERNA 12+ YRS VACCINE 2020-09-06 00:00:[address] [facility] SARS-COV-2 COVID-19 MODERNA 12+ YRS VACCINE 2020-09-06 00:00:[address] [facility] SARS-COV-2 COVID-19 MODERNA 12+ YRS VACCINE 2020-09-06 00:00:[address] [facility] SARS-COV-2 COVID-19 MODERNA 12+ YRS VACCINE 2020-09-06 00:00:[address] [facility] SARS-COV-2 COVID-19 MODERNA 12+ YRS VACCINE 2020-09-06 00:00:[address] [facility] SARS-COV-2 COVID-19 MODERNA 12+ YRS VACCINE 2020-09-06 00:00:[address] [facility] SARS-COV-2 COVID-19 MODERNA 12+ YRS VACCINE 2020-09-06 00:00:[address] [facility] SARS-COV-2 COVID-19 MODERNA 12+ YRS VACCINE 2020-09-06 00:00:[address] [facility] SARS-COV-2 COVID-19 MODERNA 12+ YRS VACCINE 2020-09-06 00:00:[address] [facility] SARS-COV-2 COVID-19 MODERNA 12+ YRS VACCINE 2020-09-06 00:00:[address] [facility] SARS-COV-2 COVID-19 MODERNA 12+ YRS VACCINE 2020-09-06 00:00:[address] [facility] SARS-COV-2 COVID-19 MODERNA 12+ YRS VACCINE 2020-09-06 00:00:[address] [facility] SARS-COV-2 COVID-19 MODERNA 12+ YRS VACCINE 2020-09-06 00:00:[address] [facility] SARS-COV-2 COVID-19 MODERNA 12+ YRS VACCINE 2020-09-06 00:00:[address] [facility] SARS-COV-2 COVID-19 MODERNA 12+ YRS VACCINE 2020-09-06 00:00:[address] [facility] SARS-COV-2 COVID-19 MODERNA 12+ YRS VACCINE 2020-09-06 00:00:[address] [facility] SARS-COV-2 COVID-19 MODERNA 12+ YRS VACCINE 2020-09-06 00:00:[address] [facility] SARS-COV-2 COVID-19 MODERNA 12+ YRS VACCINE 2020-09-06 00:00:[address] [facility] SARS-COV-2 COVID-19 MODERNA 12+ YRS VACCINE 2020-09-06 00:00:[address] [facility] SARS-COV-2 COVID-19 MODERNA 12+ YRS VACCINE 2020-09-06 00:00:[address] [facility] SARS-COV-2 COVID-19 MODERNA 12+ YRS VACCINE 2020-09-06 00:00:[address] [facility] SARS-COV-2 COVID-19 MODERNA 12+ YRS VACCINE 2020-09-06 00:00:[address] [facility] SARS-COV-2 COVID-19 MODERNA 12+ YRS VACCINE 2020-09-06 00:00:[address] [facility] SARS-COV-2 COVID-19 MODERNA 12+ YRS VACCINE 2020-09-06 00:00:[address] [facility] SARS-COV-2 COVID-19 MODERNA 12+ YRS VACCINE 2020-09-06 00:00:[address] [facility] SARS-COV-2 COVID-19 MODERNA 12+ YRS VACCINE 2020-09-06 00:00:[address] [facility] SARS-COV-2 COVID-19 MODERNA 12+ YRS VACCINE 2020-09-06 00:00:[address] [facility] SARS-COV-2 COVID-19 MODERNA 12+ YRS VACCINE 2020-09-06 00:00:[address] [facility] SARS-COV-2 COVID-19 MODERNA 12+ YRS VACCINE 2020-09-06 00:00:[address] [facility] SARS-COV-2 COVID-19 MODERNA 12+ YRS VACCINE 2020-09-06 00:00:[address] [facility] SARS-COV-2 COVID-19 MODERNA 12+ YRS VACCINE 2020-09-06 00:00:[address] [facility] SARS-COV-2 COVID-19 MODERNA 12+ YRS VACCINE 2020-09-06 00:00:[address] [facility] SARS-COV-2 COVID-19 MODERNA 12+ YRS VACCINE 2020-09-06 00:00:[address] [facility] SARS-COV-2 COVID-19 MODERNA 12+ YRS VACCINE 2020-09-06 00:00:[address] [facility] SARS-COV-2 COVID-19 MODERNA 12+ YRS VACCINE 2020-09-06 00:00:[address] [facility] SARS-COV-2 COVID-19 MODERNA 12+ YRS VACCINE 2020-09-06 00:00:[address] [facility] SARS-COV-2 COVID-19 MODERNA 12+ YRS VACCINE 2020-09-06 00:00:[address] [facility] SARS-COV-2 COVID-19 MODERNA 12+ YRS VACCINE 2020-09-06 00:00:[address] [facility] SARS-COV-2 COVID-19 MODERNA 12+ YRS VACCINE 2020-09-06 00:00:[address] [facility] SARS-COV-2 COVID-19 MODERNA 12+ YRS VACCINE 2020-09-06 00:00:[address] [facility] SARS-COV-2 COVID-19 MODERNA 12+ YRS VACCINE 2020-09-06 00:00:[address] [facility] SARS-COV-2 COVID-19 MODERNA 12+ YRS VACCINE 2020-09-06 00:00:[address] [facility] SARS-COV-2 COVID-19 MODERNA 12+ YRS VACCINE 2020-09-06 00:00:[address] [facility] SARS-COV-2 COVID-19 MODERNA 12+ YRS VACCINE 2020-09-06 00:00:[address] [facility] SARS-COV-2 COVID-19 MODERNA 12+ YRS VACCINE 2020-09-06 00:00:[address] [facility] SARS-COV-2 COVID-19 MODERNA 12+ YRS VACCINE 2020-09-06 00:00:[address] [facility] SARS-COV-2 COVID-19 MODERNA 12+ YRS VACCINE 2020-09-06 00:00:[address] [facility] SARS-COV-2 COVID-19 MODERNA 12+ YRS VACCINE 2020-09-06 00:00:[address] [facility] SARS-COV-2 COVID-19 MODERNA 12+ YRS VACCINE 2020-09-06 00:00:[address] [facility] SARS-COV-2 COVID-19 MODERNA 12+ YRS VACCINE 2020-09-06 00:00:[address] [facility] SARS-COV-2 COVID-19 MODERNA 12+ YRS VACCINE 2020-09-06 00:00:[address] [facility] SARS-COV-2 COVID-19 MODERNA 12+ YRS VACCINE 2020-09-06 00:00:[address] [facility] SARS-COV-2 COVID-19 MODERNA 12+ YRS VACCINE 2020-09-06 00:00:[address] [facility] SARS-COV-2 COVID-19 MODERNA 12+ YRS VACCINE 2020-09-06 00:00:[address] [facility] SARS-COV-2 COVID-19 MODERNA 12+ YRS VACCINE 2020-09-06 00:00:[address] [facility] SARS-COV-2 COVID-19 MODERNA 12+ YRS VACCINE 2020-09-06 00:00:[address] [facility] SARS-COV-2 COVID-19 MODERNA 12+ YRS VACCINE 2020-09-06 00:00:[address] [facility] SARS-COV-2 COVID-19 MODERNA 12+ YRS VACCINE 2020-09-06 00:00:[address] [facility] SARS-COV-2 COVID-19 MODERNA 12+ YRS VACCINE 2020-09-06 00:00:[address] [facility] SARS-COV-2 COVID-19 MODERNA 12+ YRS VACCINE 2020-09-06 00:00:[address] [facility] SARS-COV-2 COVID-19 MODERNA 12+ YRS VACCINE 2020-09-06 00:00:[address] [facility] SARS-COV-2 COVID-19 MODERNA 12+ YRS VACCINE 2020-09-06 00:00:[address] [facility] SARS-COV-2 COVID-19 MODERNA VACCINE 2020-08-09 00:00:[address] [facility] SARS-COV-2 COVID-19 MODERNA VACCINE 2020-08-09 00:00:[address] [facility] SARS-COV-2 COVID-19 MODERNA VACCINE 2020-08-09 00:00:[address] [facility] SARS-COV-2 COVID-19 MODERNA VACCINE 2020-08-09 00:00:[address] [facility] SARS-COV-2 COVID-19 MODERNA 12+ YRS VACCINE 2020-08-09 00:00:[address] [facility] SARS-COV-2 COVID-19 MODERNA 12+ YRS VACCINE 2020-08-09 00:00:[address] [facility] SARS-COV-2 COVID-19 MODERNA 12+ YRS VACCINE 2020-08-09 00:00:[address] [facility] SARS-COV-2 COVID-19 MODERNA 12+ YRS VACCINE 2020-08-09 00:00:[address] [facility] SARS-COV-2 COVID-19 MODERNA 12+ YRS VACCINE 2020-08-09 00:00:[address] [facility] SARS-COV-2 COVID-19 MODERNA 12+ YRS VACCINE 2020-08-09 00:00:[address] [facility] SARS-COV-2 COVID-19 MODERNA 12+ YRS VACCINE 2020-08-09 00:00:[address] [facility] SARS-COV-2 COVID-19 MODERNA 12+ YRS VACCINE 2020-08-09 00:00:[address] [facility] SARS-COV-2 COVID-19 MODERNA 12+ YRS VACCINE 2020-08-09 00:00:[address] [facility] SARS-COV-2 COVID-19 MODERNA 12+ YRS VACCINE 2020-08-09 00:00:[address] [facility] SARS-COV-2 COVID-19 MODERNA 12+ YRS VACCINE 2020-08-09 00:00:[address] [facility] SARS-COV-2 COVID-19 MODERNA 12+ YRS VACCINE 2020-08-09 00:00:[address] [facility] SARS-COV-2 COVID-19 MODERNA 12+ YRS VACCINE 2020-08-09 00:00:[address] [facility] SARS-COV-2 COVID-19 MODERNA 12+ YRS VACCINE 2020-08-09 00:00:[address] [facility] SARS-COV-2 COVID-19 MODERNA 12+ YRS VACCINE 2020-08-09 00:00:[address] [facility] SARS-COV-2 COVID-19 MODERNA 12+ YRS VACCINE 2020-08-09 00:00:[address] [facility] SARS-COV-2 COVID-19 MODERNA 12+ YRS VACCINE 2020-08-09 00:00:[address] [facility] SARS-COV-2 COVID-19 MODERNA 12+ YRS VACCINE 2020-08-09 00:00:[address] [facility] SARS-COV-2 COVID-19 MODERNA 12+ YRS VACCINE 2020-08-09 00:00:[address] [facility] SARS-COV-2 COVID-19 MODERNA 12+ YRS VACCINE 2020-08-09 00:00:[address] [facility] SARS-COV-2 COVID-19 MODERNA 12+ YRS VACCINE 2020-08-09 00:00:[address] [facility] SARS-COV-2 COVID-19 MODERNA 12+ YRS VACCINE 2020-08-09 00:00:[address] [facility] SARS-COV-2 COVID-19 MODERNA 12+ YRS VACCINE 2020-08-09 00:00:[address] [facility] SARS-COV-2 COVID-19 MODERNA 12+ YRS VACCINE 2020-08-09 00:00:[address] [facility] SARS-COV-2 COVID-19 MODERNA 12+ YRS VACCINE 2020-08-09 00:00:[address] [facility] SARS-COV-2 COVID-19 MODERNA 12+ YRS VACCINE 2020-08-09 00:00:[address] [facility] SARS-COV-2 COVID-19 MODERNA 12+ YRS VACCINE 2020-08-09 00:00:[address] [facility] SARS-COV-2 COVID-19 MODERNA 12+ YRS VACCINE 2020-08-09 00:00:[address] [facility] SARS-COV-2 COVID-19 MODERNA 12+ YRS VACCINE 2020-08-09 00:00:[address] [facility] SARS-COV-2 COVID-19 MODERNA 12+ YRS VACCINE 2020-08-09 00:00:[address] [facility] SARS-COV-2 COVID-19 MODERNA 12+ YRS VACCINE 2020-08-09 00:00:[address] [facility] SARS-COV-2 COVID-19 MODERNA 12+ YRS VACCINE 2020-08-09 00:00:[address] [facility] SARS-COV-2 COVID-19 MODERNA 12+ YRS VACCINE 2020-08-09 00:00:[address] [facility] SARS-COV-2 COVID-19 MODERNA 12+ YRS VACCINE 2020-08-09 00:00:[address] [facility] SARS-COV-2 COVID-19 MODERNA 12+ YRS VACCINE 2020-08-09 00:00:[address] [facility] SARS-COV-2 COVID-19 MODERNA 12+ YRS VACCINE 2020-08-09 00:00:[address] [facility] SARS-COV-2 COVID-19 MODERNA 12+ YRS VACCINE 2020-08-09 00:00:[address] [facility] SARS-COV-2 COVID-19 MODERNA 12+ YRS VACCINE 2020-08-09 00:00:[address] [facility] SARS-COV-2 COVID-19 MODERNA 12+ YRS VACCINE 2020-08-09 00:00:[address] [facility] SARS-COV-2 COVID-19 MODERNA 12+ YRS VACCINE 2020-08-09 00:00:[address] [facility] SARS-COV-2 COVID-19 MODERNA 12+ YRS VACCINE 2020-08-09 00:00:[address] [facility] SARS-COV-2 COVID-19 MODERNA 12+ YRS VACCINE 2020-08-09 00:00:[address] [facility] SARS-COV-2 COVID-19 MODERNA 12+ YRS VACCINE 2020-08-09 00:00:[address] [facility] SARS-COV-2 COVID-19 MODERNA 12+ YRS VACCINE 2020-08-09 00:00:[address] [facility] SARS-COV-2 COVID-19 MODERNA 12+ YRS VACCINE 2020-08-09 00:00:[address] [facility] SARS-COV-2 COVID-19 MODERNA 12+ YRS VACCINE 2020-08-09 00:00:[address] [facility] SARS-COV-2 COVID-19 MODERNA 12+ YRS VACCINE 2020-08-09 00:00:[address] [facility] SARS-COV-2 COVID-19 MODERNA 12+ YRS VACCINE 2020-08-09 00:00:[address] [facility] SARS-COV-2 COVID-19 MODERNA 12+ YRS VACCINE 2020-08-09 00:00:[address] [facility] SARS-COV-2 COVID-19 MODERNA 12+ YRS VACCINE 2020-08-09 00:00:[address] [facility] SARS-COV-2 COVID-19 MODERNA 12+ YRS VACCINE 2020-08-09 00:00:[address] [facility] SARS-COV-2 COVID-19 MODERNA 12+ YRS VACCINE 2020-08-09 00:00:[address] [facility] SARS-COV-2 COVID-19 MODERNA 12+ YRS VACCINE 2020-08-09 00:00:[address] [facility] SARS-COV-2 COVID-19 MODERNA 12+ YRS VACCINE 2020-08-09 00:00:[address] [facility] SARS-COV-2 COVID-19 MODERNA 12+ YRS VACCINE 2020-08-09 00:00:[address] [facility] SARS-COV-2 COVID-19 MODERNA 12+ YRS VACCINE 2020-08-09 00:00:[address] [facility] SARS-COV-2 COVID-19 MODERNA 12+ YRS VACCINE 2020-08-09 00:00:[address] [facility] SARS-COV-2 COVID-19 MODERNA 12+ YRS VACCINE 2020-08-09 00:00:[address] [facility] SARS-COV-2 COVID-19 MODERNA 12+ YRS VACCINE 2020-08-09 00:00:[address] [facility] SARS-COV-2 COVID-19 MODERNA 12+ YRS VACCINE 2020-08-09 00:00:[address] [facility] SARS-COV-2 COVID-19 MODERNA 12+ YRS VACCINE 2020-08-09 00:00:[address] [facility] SARS-COV-2 COVID-19 MODERNA 12+ YRS VACCINE 2020-08-09 00:00:[address] [facility] SARS-COV-2 COVID-19 MODERNA 12+ YRS VACCINE 2020-08-09 00:00:[address] [facility] SARS-COV-2 COVID-19 MODERNA 12+ YRS VACCINE 2020-08-09 00:00:[address] [facility] SARS-COV-2 COVID-19 MODERNA 12+ YRS VACCINE 2020-08-09 00:00:[address] [facility] SARS-COV-2 COVID-19 MODERNA 12+ YRS VACCINE 2020-08-09 00:00:[address] [facility] SARS-COV-2 COVID-19 MODERNA 12+ YRS VACCINE 2020-08-09 00:00:[address] [facility] SARS-COV-2 COVID-19 MODERNA 12+ YRS VACCINE 2020-08-09 00:00:[address] [facility] SARS-COV-2 COVID-19 MODERNA 12+ YRS VACCINE 2020-08-09 00:00:[address] [facility] SARS-COV-2 COVID-19 MODERNA 12+ YRS VACCINE 2020-08-09 00:00:[address] [facility] SARS-COV-2 COVID-19 MODERNA 12+ YRS VACCINE 2020-08-09 00:00:[address] [facility] SARS-COV-2 COVID-19 MODERNA 12+ YRS VACCINE 2020-08-09 00:00:[address] [facility] SARS-COV-2 COVID-19 MODERNA 12+ YRS VACCINE 2020-08-09 00:00:[address] [facility] SARS-COV-2 COVID-19 MODERNA 12+ YRS VACCINE 2020-08-09 00:00:[address] [facility] SARS-COV-2 COVID-19 MODERNA 12+ YRS VACCINE 2020-08-09 00:00:[address] [facility] SARS-COV-2 COVID-19 MODERNA 12+ YRS VACCINE 2020-08-09 00:00:[address] [facility] SARS-COV-2 COVID-19 MODERNA 12+ YRS VACCINE 2020-08-09 00:00:[address] [facility] SARS-COV-2 COVID-19 MODERNA 12+ YRS VACCINE 2020-08-09 00:00:[address] [facility] SARS-COV-2 COVID-19 MODERNA 12+ YRS VACCINE 2020-08-09 00:00:[address] [facility] SARS-COV-2 COVID-19 MODERNA 12+ YRS VACCINE 2020-08-09 00:00:[address] [facility] SARS-COV-2 COVID-19 MODERNA 12+ YRS VACCINE 2020-08-09 00:00:[address] [facility] SARS-COV-2 COVID-19 MODERNA 12+ YRS VACCINE 2020-08-09 00:00:[address] [facility] SARS-COV-2 COVID-19 MODERNA 12+ YRS VACCINE 2020-08-09 00:00:[address] [facility] SARS-COV-2 COVID-19 MODERNA 12+ YRS VACCINE 2020-08-09 00:00:[address] [facility] SARS-COV-2 COVID-19 MODERNA 12+ YRS VACCINE 2020-08-09 00:00:[address] [facility] SARS-COV-2 COVID-19 MODERNA 12+ YRS VACCINE 2020-08-09 00:00:[address] [facility] SARS-COV-2 COVID-19 MODERNA 12+ YRS VACCINE 2020-08-09 00:00:[address] [facility] SARS-COV-2 COVID-19 MODERNA 12+ YRS VACCINE 2020-08-09 00:00:[address] [facility] SARS-COV-2 COVID-19 MODERNA 12+ YRS VACCINE 2020-08-09 00:00:[address] [facility] SARS-COV-2 COVID-19 MODERNA 12+ YRS VACCINE 2020-08-09 00:00:[address] [facility] SARS-COV-2 COVID-19 MODERNA 12+ YRS VACCINE 2020-08-09 00:00:[address] [facility] SARS-COV-2 COVID-19 MODERNA 12+ YRS VACCINE 2020-08-09 00:00:[address] [facility] SARS-COV-2 COVID-19 MODERNA 12+ YRS VACCINE 2020-08-09 00:00:[address] [facility] SARS-COV-2 COVID-19 MODERNA 12+ YRS VACCINE 2020-08-09 00:00:[address] [facility] SARS-COV-2 COVID-19 MODERNA 12+ YRS VACCINE 2020-08-09 00:00:[address] [facility] SARS-COV-2 COVID-19 MODERNA 12+ YRS VACCINE 2020-08-09 00:00:[address] [facility] SARS-COV-2 COVID-19 MODERNA 12+ YRS VACCINE 2020-08-09 00:00:[address] [facility] SARS-COV-2 COVID-19 MODERNA 12+ YRS VACCINE 2020-08-09 00:00:[address] [facility] SARS-COV-2 COVID-19 MODERNA 12+ YRS VACCINE 2020-08-09 00:00:[address] [facility] SARS-COV-2 COVID-19 MODERNA 12+ YRS VACCINE 2020-08-09 00:00:[address] [facility] SARS-COV-2 COVID-19 MODERNA 12+ YRS VACCINE 2020-08-09 00:00:[address] [facility] SARS-COV-2 COVID-19 MODERNA 12+ YRS VACCINE 2020-08-09 00:00:[address] [facility] SARS-COV-2 COVID-19 MODERNA 12+ YRS VACCINE 2020-08-09 00:00:[address] [facility] SARS-COV-2 COVID-19 MODERNA 12+ YRS VACCINE 2020-08-09 00:00:[address] [facility] SARS-COV-2 COVID-19 MODERNA 12+ YRS VACCINE 2020-08-09 00:00:[address] [facility] SARS-COV-2 COVID-19 MODERNA 12+ YRS VACCINE 2020-08-09 00:00:[address] [facility] SARS-COV-2 COVID-19 MODERNA 12+ YRS VACCINE 2020-08-09 00:00:[address] [facility] SARS-COV-2 COVID-19 MODERNA 12+ YRS VACCINE 2020-08-09 00:00:[address] [facility] SARS-COV-2 COVID-19 MODERNA 12+ YRS VACCINE 2020-08-09 00:00:[address] [facility] SARS-COV-2 COVID-19 MODERNA 12+ YRS VACCINE 2020-08-09 00:00:[address] [facility] SARS-COV-2 COVID-19 MODERNA 12+ YRS VACCINE 2020-08-09 00:00:[address] [facility] SARS-COV-2 COVID-19 MODERNA 12+ YRS VACCINE 2020-08-09 00:00:[address] [facility] SARS-COV-2 COVID-19 MODERNA 12+ YRS VACCINE 2020-08-09 00:00:[address] [facility] SARS-COV-2 COVID-19 MODERNA 12+ YRS VACCINE 2020-08-09 00:00:[address] [facility] SARS-COV-2 COVID-19 MODERNA 12+ YRS VACCINE 2020-08-09 00:00:[address] [facility] SARS-COV-2 COVID-19 MODERNA 12+ YRS VACCINE 2020-08-09 00:00:[address] [facility] SARS-COV-2 COVID-19 MODERNA 12+ YRS VACCINE 2020-08-09 00:00:[address] [facility] SARS-COV-2 COVID-19 MODERNA 12+ YRS VACCINE 2020-08-09 00:00:[address] [facility] SARS-COV-2 COVID-19 MODERNA 12+ YRS VACCINE 2020-08-09 00:00:[address] [facility] SARS-COV-2 COVID-19 MODERNA 12+ YRS VACCINE 2020-08-09 00:00:[address] [facility] SARS-COV-2 COVID-19 MODERNA 12+ YRS VACCINE 2020-08-09 00:00:[address] [facility] SARS-COV-2 COVID-19 MODERNA 12+ YRS VACCINE 2020-08-09 00:00:[address] [facility] SARS-COV-2 COVID-19 MODERNA 12+ YRS VACCINE 2020-08-09 00:00:[address] [facility] SARS-COV-2 COVID-19 MODERNA 12+ YRS VACCINE 2020-08-09 00:00:[address] [facility] SARS-COV-2 COVID-19 MODERNA 12+ YRS VACCINE 2020-08-09 00:00:[address] [facility] SARS-COV-2 COVID-19 MODERNA 12+ YRS VACCINE 2020-08-09 00:00:[address] [facility] SARS-COV-2 COVID-19 MODERNA 12+ YRS VACCINE 2020-08-09 00:00:[address] [facility] SARS-COV-2 COVID-19 MODERNA 12+ YRS VACCINE 2020-08-09 00:00:[address] [facility] SARS-COV-2 COVID-19 MODERNA 12+ YRS VACCINE 2020-08-09 00:00:[address] [facility] SARS-COV-2 COVID-19 MODERNA 12+ YRS VACCINE 2020-08-09 00:00:[address] [facility] SARS-COV-2 COVID-19 MODERNA 12+ YRS VACCINE 2020-08-09 00:00:[address] [facility] SARS-COV-2 COVID-19 MODERNA 12+ YRS VACCINE 2020-08-09 00:00:[address] [facility] SARS-COV-2 COVID-19 MODERNA 12+ YRS VACCINE 2020-08-09 00:00:[address] [facility] SARS-COV-2 COVID-19 MODERNA 12+ YRS VACCINE 2020-08-09 00:00:[address] [facility] SARS-COV-2 COVID-19 MODERNA 12+ YRS VACCINE 2020-08-09 00:00:[address] [facility] SARS-COV-2 COVID-19 MODERNA 12+ YRS VACCINE 2020-08-09 00:00:[address] [facility] SARS-COV-2 COVID-19 MODERNA 12+ YRS VACCINE 2020-08-09 00:00:[address] [facility] SARS-COV-2 COVID-19 MODERNA 12+ YRS VACCINE 2020-08-09 00:00:[address] [facility] SARS-COV-2 COVID-19 MODERNA 12+ YRS VACCINE 2020-08-09 00:00:[address] [facility] SARS-COV-2 COVID-19 MODERNA 12+ YRS VACCINE 2020-08-09 00:00:[address] [facility] SARS-COV-2 COVID-19 MODERNA 12+ YRS VACCINE 2020-08-09 00:00:[address] [facility] SARS-COV-2 COVID-19 MODERNA 12+ YRS VACCINE 2020-08-09 00:00:[address] [facility] SARS-COV-2 COVID-19 MODERNA 12+ YRS VACCINE 2020-08-09 00:00:[address] [facility] SARS-COV-2 COVID-19 MODERNA 12+ YRS VACCINE 2020-08-09 00:00:[address] [facility] SARS-COV-2 COVID-19 MODERNA 12+ YRS VACCINE 2020-08-09 00:00:[address] [facility] SARS-COV-2 COVID-19 MODERNA 12+ YRS VACCINE 2020-08-09 00:00:[address] [facility] Pneumococcal Polysaccharide, PPSV23 (PNEUMOVAX) 2020-06-15 00:00:[address] [facility] Influenza Virus Vaccine Quad .5 mL IM 6+ MO 2020-06-15 00:00:[address] [facility] Pneumococcal Polysaccharide, PPSV23 (PNEUMOVAX) 2020-06-15 00:00:[address] [facility] Influenza Virus Vaccine Quad .5 mL IM 6+ MO 2020-06-15 00:00:[address] [facility] Pneumococcal Polysaccharide, PPSV23 (PNEUMOVAX) 2020-06-15 00:00:[address] [facility] Influenza Virus Vaccine Quad .5 mL IM 6+ MO 2020-06-15 00:00:[address] [facility] Pneumococcal Polysaccharide, PPSV23 (PNEUMOVAX) 2020-06-15 00:00:[address] [facility] Influenza Virus Vaccine Quad .5 mL IM 6+ MO 2020-06-15 00:00:[address] [facility] Pneumococcal Polysaccharide, PPSV23 (PNEUMOVAX) 2020-06-15 00:00:[address] [facility] Influenza Virus Vaccine Quad .5 mL IM 6+ MO 2020-06-15 00:00:[address] [facility] Pneumococcal Polysaccharide, PPSV23 (PNEUMOVAX) 2020-06-15 00:00:[address] [facility] Influenza Virus Vaccine Quad .5 mL IM 6+ MO 2020-06-15 00:00:[address] [facility] Pneumococcal Polysaccharide, PPSV23 (PNEUMOVAX) 2020-06-15 00:00:[address] [facility] Influenza Virus Vaccine Quad .5 mL IM 6+ MO 2020-06-15 00:00:[address] [facility] Pneumococcal Polysaccharide, PPSV23 (PNEUMOVAX) 2020-06-15 00:00:[address] [facility] Influenza Virus Vaccine Quad .5 mL IM 6+ MO 2020-06-15 00:00:[address] [facility] Pneumococcal Polysaccharide, PPSV23 (PNEUMOVAX) 2020-06-15 00:00:[address] [facility] Influenza Virus Vaccine Quad .5 mL IM 6+ MO 2020-06-15 00:00:[address] [facility] Pneumococcal Polysaccharide, PPSV23 (PNEUMOVAX) 2020-06-15 00:00:[address] [facility] Influenza Virus Vaccine Quad .5 mL IM 6+ MO 2020-06-15 00:00:[address] [facility] Pneumococcal Polysaccharide, PPSV23 (PNEUMOVAX) 2020-06-15 00:00:[address] [facility] Influenza Virus Vaccine Quad .5 mL IM 6+ MO 2020-06-15 00:00:[address] [facility] Pneumococcal Polysaccharide, PPSV23 (PNEUMOVAX) 2020-06-15 00:00:[address] [facility] Influenza Virus Vaccine Quad .5 mL IM 6+ MO 2020-06-15 00:00:[address] [facility] Pneumococcal Polysaccharide, PPSV23 (PNEUMOVAX) 2020-06-15 00:00:[address] [facility] Influenza Virus Vaccine Quad .5 mL IM 6+ MO 2020-06-15 00:00:[address] [facility] Pneumococcal Polysaccharide, PPSV23 (PNEUMOVAX) 2020-06-15 00:00:[address] [facility] Influenza Virus Vaccine Quad .5 mL IM 6+ MO 2020-06-15 00:00:[address] [facility] Pneumococcal Polysaccharide, PPSV23 (PNEUMOVAX) 2020-06-15 00:00:[address] [facility] Influenza Virus Vaccine Quad .5 mL IM 6+ MO 2020-06-15 00:00:[address] [facility] Pneumococcal Polysaccharide, PPSV23 (PNEUMOVAX) 2020-06-15 00:00:[address] [facility] Influenza Virus Vaccine Quad .5 mL IM 6+ MO 2020-06-15 00:00:[address] [facility] Pneumococcal Polysaccharide, PPSV23 (PNEUMOVAX) 2020-06-15 00:00:[address] [facility] Influenza Virus Vaccine Quad .5 mL IM 6+ MO 2020-06-15 00:00:[address] [facility] Pneumococcal Polysaccharide, PPSV23 (PNEUMOVAX) 2020-06-15 00:00:[address] [facility] Influenza Virus Vaccine Quad .5 mL IM 6+ MO 2020-06-15 00:00:[address] [facility] Pneumococcal Polysaccharide, PPSV23 (PNEUMOVAX) 2020-06-15 00:00:[address] [facility] Influenza Virus Vaccine Quad .5 mL IM 6+ MO 2020-06-15 00:00:[address] [facility] Pneumococcal Polysaccharide, PPSV23 (PNEUMOVAX) 2020-06-15 00:00:[address] [facility] Influenza Virus Vaccine Quad .5 mL IM 6+ MO 2020-06-15 00:00:[address] [facility] Pneumococcal Polysaccharide, PPSV23 (PNEUMOVAX) 2020-06-15 00:00:[address] [facility] Influenza Virus Vaccine Quad .5 mL IM 6+ MO 2020-06-15 00:00:[address] [facility] Pneumococcal Polysaccharide, PPSV23 (PNEUMOVAX) 2020-06-15 00:00:[address] [facility] Influenza Virus Vaccine Quad .5 mL IM 6+ MO 2020-06-15 00:00:[address] [facility] Pneumococcal Polysaccharide, PPSV23 (PNEUMOVAX) 2020-06-15 00:00:[address] [facility] Influenza Virus Vaccine Quad .5 mL IM 6+ MO 2020-06-15 00:00:[address] [facility] Pneumococcal Polysaccharide, PPSV23 (PNEUMOVAX) 2020-06-15 00:00:[address] [facility] Influenza Virus Vaccine Quad .5 mL IM 6+ MO 2020-06-15 00:00:[address] [facility] Pneumococcal Polysaccharide, PPSV23 (PNEUMOVAX) 2020-06-15 00:00:[address] [facility] Influenza Virus Vaccine Quad .5 mL IM 6+ MO 2020-06-15 00:00:[address] [facility] Pneumococcal Polysaccharide, PPSV23 (PNEUMOVAX) 2020-06-15 00:00:[address] [facility] Influenza Virus Vaccine Quad .5 mL IM 6+ MO 2020-06-15 00:00:[address] [facility] Pneumococcal Polysaccharide, PPSV23 (PNEUMOVAX) 2020-06-15 00:00:[address] [facility] Influenza Virus Vaccine Quad .5 mL IM 6+ MO 2020-06-15 00:00:[address] [facility] Pneumococcal Polysaccharide, PPSV23 (PNEUMOVAX) 2020-06-15 00:00:[address] [facility] Influenza Virus Vaccine Quad .5 mL IM 6+ MO 2020-06-15 00:00:[address] [facility] Pneumococcal Polysaccharide, PPSV23 (PNEUMOVAX) 2020-06-15 00:00:[address] [facility] Influenza Virus Vaccine Quad .5 mL IM 6+ MO 2020-06-15 00:00:[address] [facility] Pneumococcal Polysaccharide, PPSV23 (PNEUMOVAX) 2020-06-15 00:00:[address] [facility] Influenza Virus Vaccine Quad .5 mL IM 6+ MO 2020-06-15 00:00:[address] [facility] Pneumococcal Polysaccharide, PPSV23 (PNEUMOVAX) 2020-06-15 00:00:[address] [facility] Influenza Virus Vaccine Quad .5 mL IM 6+ MO 2020-06-15 00:00:[address] [facility] Pneumococcal Polysaccharide, PPSV23 (PNEUMOVAX) 2020-06-15 00:00:[address] [facility] Influenza Virus Vaccine Quad .5 mL IM 6+ MO 2020-06-15 00:00:[address] [facility] Pneumococcal Polysaccharide, PPSV23 (PNEUMOVAX) 2020-06-15 00:00:[address] [facility] Influenza Virus Vaccine Quad .5 mL IM 6+ MO 2020-06-15 00:00:[address] [facility] Pneumococcal Polysaccharide, PPSV23 (PNEUMOVAX) 2020-06-15 00:00:[address] [facility] Influenza Virus Vaccine Quad .5 mL IM 6+ MO 2020-06-15 00:00:[address] [facility] Pneumococcal Polysaccharide, PPSV23 (PNEUMOVAX) 2020-06-15 00:00:[address] [facility] Influenza Virus Vaccine Quad .5 mL IM 6+ MO 2020-06-15 00:00:[address] [facility] Pneumococcal Polysaccharide, PPSV23 (PNEUMOVAX) 2020-06-15 00:00:[address] [facility] Influenza Virus Vaccine Quad .5 mL IM 6+ MO 2020-06-15 00:00:[address] [facility] Pneumococcal Polysaccharide, PPSV23 (PNEUMOVAX) 2020-06-15 00:00:[address] [facility] Influenza Virus Vaccine Quad .5 mL IM 6+ MO 2020-06-15 00:00:[address] [facility] Pneumococcal Polysaccharide, PPSV23 (PNEUMOVAX) 2020-06-15 00:00:[address] [facility] Influenza Virus Vaccine Quad .5 mL IM 6+ MO 2020-06-15 00:00:[address] [facility] Pneumococcal Polysaccharide, PPSV23 (PNEUMOVAX) 2020-06-15 00:00:[address] [facility] Influenza Virus Vaccine Quad .5 mL IM 6+ MO 2020-06-15 00:00:[address] [facility] Pneumococcal Polysaccharide, PPSV23 (PNEUMOVAX) 2020-06-15 00:00:[address] [facility] Influenza Virus Vaccine Quad .5 mL IM 6+ MO 2020-06-15 00:00:[address] [facility] Pneumococcal Polysaccharide, PPSV23 (PNEUMOVAX) 2020-06-15 00:00:[address] [facility] Influenza Virus Vaccine Quad .5 mL IM 6+ MO 2020-06-15 00:00:[address] [facility] Pneumococcal Polysaccharide, PPSV23 (PNEUMOVAX) 2020-06-15 00:00:[address] [facility] Influenza Virus Vaccine Quad .5 mL IM 6+ MO 2020-06-15 00:00:[address] [facility] Pneumococcal Polysaccharide, PPSV23 (PNEUMOVAX) 2020-06-15 00:00:[address] [facility] Influenza Virus Vaccine Quad .5 mL IM 6+ MO 2020-06-15 00:00:[address] [facility] Pneumococcal Polysaccharide, PPSV23 (PNEUMOVAX) 2020-06-15 00:00:[address] [facility] Influenza Virus Vaccine Quad .5 mL IM 6+ MO 2020-06-15 00:00:[address] [facility] Pneumococcal Polysaccharide, PPSV23 (PNEUMOVAX) 2020-06-15 00:00:[address] [facility] Influenza Virus Vaccine Quad .5 mL IM 6+ MO 2020-06-15 00:00:[address] [facility] Pneumococcal Polysaccharide, PPSV23 (PNEUMOVAX) 2020-06-15 00:00:[address] [facility] Influenza Virus Vaccine Quad .5 mL IM 6+ MO 2020-06-15 00:00:[address] [facility] Pneumococcal Polysaccharide, PPSV23 (PNEUMOVAX) 2020-06-15 00:00:[address] [facility] Influenza Virus Vaccine Quad .5 mL IM 6+ MO 2020-06-15 00:00:[address] [facility] Pneumococcal Polysaccharide, PPSV23 (PNEUMOVAX) 2020-06-15 00:00:[address] [facility] Influenza Virus Vaccine Quad .5 mL IM 6+ MO 2020-06-15 00:00:[address] [facility] Pneumococcal Polysaccharide, PPSV23 (PNEUMOVAX) 2020-06-15 00:00:[address] [facility] Influenza Virus Vaccine Quad .5 mL IM 6+ MO 2020-06-15 00:00:[address] [facility] Pneumococcal Polysaccharide, PPSV23 (PNEUMOVAX) 2020-06-15 00:00:[address] [facility] Influenza Virus Vaccine Quad .5 mL IM 6+ MO 2020-06-15 00:00:[address] [facility] Pneumococcal Polysaccharide, PPSV23 (PNEUMOVAX) 2020-06-15 00:00:[address] [facility] Influenza Virus Vaccine Quad .5 mL IM 6+ MO 2020-06-15 00:00:[address] [facility] Pneumococcal Polysaccharide, PPSV23 (PNEUMOVAX) 2020-06-15 00:00:[address] [facility] Influenza Virus Vaccine Quad .5 mL IM 6+ MO 2020-06-15 00:00:[address] [facility] Pneumococcal Polysaccharide, PPSV23 (PNEUMOVAX) 2020-06-15 00:00:[address] [facility] Influenza Virus Vaccine Quad .5 mL IM 6+ MO 2020-06-15 00:00:[address] [facility] Pneumococcal Polysaccharide, PPSV23 (PNEUMOVAX) 2020-06-15 00:00:[address] [facility] Influenza Virus Vaccine Quad .5 mL IM 6+ MO 2020-06-15 00:00:[address] [facility] Pneumococcal Polysaccharide, PPSV23 (PNEUMOVAX) 2020-06-15 00:00:[address] [facility] Influenza Virus Vaccine Quad .5 mL IM 6+ MO 2020-06-15 00:00:[address] [facility] Pneumococcal Polysaccharide, PPSV23 (PNEUMOVAX) 2020-06-15 00:00:[address] [facility] Influenza Virus Vaccine Quad .5 mL IM 6+ MO 2020-06-15 00:00:[address] [facility] Pneumococcal Polysaccharide, PPSV23 (PNEUMOVAX) 2020-06-15 00:00:[address] [facility] Influenza Virus Vaccine Quad .5 mL IM 6+ MO 2020-06-15 00:00:[address] [facility] Pneumococcal Polysaccharide, PPSV23 (PNEUMOVAX) 2020-06-15 00:00:[address] [facility] Influenza Virus Vaccine Quad .5 mL IM 6+ MO 2020-06-15 00:00:[address] [facility] Pneumococcal Polysaccharide, PPSV23 (PNEUMOVAX) 2020-06-15 00:00:[address] [facility] Influenza Virus Vaccine Quad .5 mL IM 6+ MO 2020-06-15 00:00:[address] [facility] Pneumococcal Polysaccharide, PPSV23 (PNEUMOVAX) 2020-06-15 00:00:[address] [facility] Influenza Virus Vaccine Quad .5 mL IM 6+ MO 2020-06-15 00:00:[address] [facility] Pneumococcal Polysaccharide, PPSV23 (PNEUMOVAX) 2020-06-15 00:00:[address] [facility] Influenza Virus Vaccine Quad .5 mL IM 6+ MO 2020-06-15 00:00:[address] [facility] Pneumococcal Polysaccharide, PPSV23 (PNEUMOVAX) 2020-06-15 00:00:[address] [facility] Influenza Virus Vaccine Quad .5 mL IM 6+ MO 2020-06-15 00:00:[address] [facility] Pneumococcal Polysaccharide, PPSV23 (PNEUMOVAX) 2020-06-15 00:00:[address] [facility] Influenza Virus Vaccine Quad .5 mL IM 6+ MO 2020-06-15 00:00:[address] [facility] Pneumococcal Polysaccharide, PPSV23 (PNEUMOVAX) 2020-06-15 00:00:[address] [facility] Influenza Virus Vaccine Quad .5 mL IM 6+ MO 2020-06-15 00:00:[address] [facility] Pneumococcal Polysaccharide, PPSV23 (PNEUMOVAX) 2020-06-15 00:00:[address] [facility] Influenza Virus Vaccine Quad .5 mL IM 6+ MO 2020-06-15 00:00:[address] [facility] Pneumococcal Polysaccharide, PPSV23 (PNEUMOVAX) 2020-06-15 00:00:[address] [facility] Influenza Virus Vaccine Quad .5 mL IM 6+ MO 2020-06-15 00:00:[address] [facility] Pneumococcal Polysaccharide, PPSV23 (PNEUMOVAX) 2020-06-15 00:00:[address] [facility] Influenza Virus Vaccine Quad .5 mL IM 6+ MO 2020-06-15 00:00:[address] [facility] Pneumococcal Polysaccharide, PPSV23 (PNEUMOVAX) 2020-06-15 00:00:[address] [facility] Influenza Virus Vaccine Quad .5 mL IM 6+ MO 2020-06-15 00:00:[address] [facility] Pneumococcal Polysaccharide, PPSV23 (PNEUMOVAX) 2020-06-15 00:00:[address] [facility] Influenza Virus Vaccine Quad .5 mL IM 6+ MO 2020-06-15 00:00:[address] [facility] Pneumococcal Polysaccharide, PPSV23 (PNEUMOVAX) 2020-06-15 00:00:[address] [facility] Influenza Virus Vaccine Quad .5 mL IM 6+ MO 2020-06-15 00:00:[address] [facility] Pneumococcal Polysaccharide, PPSV23 (PNEUMOVAX) 2020-06-15 00:00:[address] [facility] Influenza Virus Vaccine Quad .5 mL IM 6+ MO 2020-06-15 00:00:[address] [facility] Pneumococcal Polysaccharide, PPSV23 (PNEUMOVAX) 2020-06-15 00:00:[address] [facility] Influenza Virus Vaccine Quad .5 mL IM 6+ MO 2020-06-15 00:00:[address] [facility] Pneumococcal Polysaccharide, PPSV23 (PNEUMOVAX) 2020-06-15 00:00:[address] [facility] Influenza Virus Vaccine Quad .5 mL IM 6+ MO 2020-06-15 00:00:[address] [facility] Pneumococcal Polysaccharide, PPSV23 (PNEUMOVAX) 2020-06-15 00:00:[address] [facility] Influenza Virus Vaccine Quad .5 mL IM 6+ MO 2020-06-15 00:00:[address] [facility] Pneumococcal Polysaccharide, PPSV23 (PNEUMOVAX) 2020-06-15 00:00:[address] [facility] Influenza Virus Vaccine Quad .5 mL IM 6+ MO 2020-06-15 00:00:[address] [facility] Pneumococcal Polysaccharide, PPSV23 (PNEUMOVAX) 2020-06-15 00:00:[address] [facility] Influenza Virus Vaccine Quad .5 mL IM 6+ MO 2020-06-15 00:00:[address] [facility] Pneumococcal Polysaccharide, PPSV23 (PNEUMOVAX) 2020-06-15 00:00:[address] [facility] Influenza Virus Vaccine Quad .5 mL IM 6+ MO 2020-06-15 00:00:[address] [facility] Pneumococcal Polysaccharide, PPSV23 (PNEUMOVAX) 2020-06-15 00:00:[address] [facility] Influenza Virus Vaccine Quad .5 mL IM 6+ MO 2020-06-15 00:00:[address] [facility] Pneumococcal Polysaccharide, PPSV23 (PNEUMOVAX) 2020-06-15 00:00:[address] [facility] Influenza Virus Vaccine Quad .5 mL IM 6+ MO 2020-06-15 00:00:[address] [facility] Pneumococcal Polysaccharide, PPSV23 (PNEUMOVAX) 2020-06-15 00:00:[address] [facility] Influenza Virus Vaccine Quad .5 mL IM 6+ MO 2020-06-15 00:00:[address] [facility] Pneumococcal Polysaccharide, PPSV23 (PNEUMOVAX) 2020-06-15 00:00:[address] [facility] Influenza Virus Vaccine Quad .5 mL IM 6+ MO 2020-06-15 00:00:[address] [facility] Pneumococcal Polysaccharide, PPSV23 (PNEUMOVAX) 2020-06-15 00:00:[address] [facility] Influenza Virus Vaccine Quad .5 mL IM 6+ MO 2020-06-15 00:00:[address] [facility] Pneumococcal Polysaccharide, PPSV23 (PNEUMOVAX) 2020-06-15 00:00:[address] [facility] Influenza Virus Vaccine Quad .5 mL IM 6+ MO 2020-06-15 00:00:[address] [facility] Pneumococcal Polysaccharide, PPSV23 (PNEUMOVAX) 2020-06-15 00:00:[address] [facility] Influenza Virus Vaccine Quad .5 mL IM 6+ MO 2020-06-15 00:00:[address] [facility] Pneumococcal Polysaccharide, PPSV23 (PNEUMOVAX) 2020-06-15 00:00:[address] [facility] Influenza Virus Vaccine Quad .5 mL IM 6+ MO 2020-06-15 00:00:[address] [facility] Pneumococcal Polysaccharide, PPSV23 (PNEUMOVAX) 2020-06-15 00:00:[address] [facility] Influenza Virus Vaccine Quad .5 mL IM 6+ MO 2020-06-15 00:00:[address] [facility] Pneumococcal Polysaccharide, PPSV23 (PNEUMOVAX) 2020-06-15 00:00:[address] [facility] Influenza Virus Vaccine Quad .5 mL IM 6+ MO 2020-06-15 00:00:[address] [facility] Pneumococcal Polysaccharide, PPSV23 (PNEUMOVAX) 2020-06-15 00:00:[address] [facility] Influenza Virus Vaccine Quad .5 mL IM 6+ MO 2020-06-15 00:00:[address] [facility] Pneumococcal Polysaccharide, PPSV23 (PNEUMOVAX) 2020-06-15 00:00:[address] [facility] Influenza Virus Vaccine Quad .5 mL IM 6+ MO 2020-06-15 00:00:[address] [facility] Pneumococcal Polysaccharide, PPSV23 (PNEUMOVAX) 2020-06-15 00:00:[address] [facility] Influenza Virus Vaccine Quad .5 mL IM 6+ MO 2020-06-15 00:00:[address] [facility] Pneumococcal Polysaccharide, PPSV23 (PNEUMOVAX) 2020-06-15 00:00:[address] [facility] Influenza Virus Vaccine Quad .5 mL IM 6+ MO 2020-06-15 00:00:[address] [facility] Pneumococcal Polysaccharide, PPSV23 (PNEUMOVAX) 2020-06-15 00:00:[address] [facility] Influenza Virus Vaccine Quad .5 mL IM 6+ MO 2020-06-15 00:00:[address] [facility] Pneumococcal Polysaccharide, PPSV23 (PNEUMOVAX) 2020-06-15 00:00:[address] [facility] Influenza Virus Vaccine Quad .5 mL IM 6+ MO 2020-06-15 00:00:[address] [facility] Pneumococcal Polysaccharide, PPSV23 (PNEUMOVAX) 2020-06-15 00:00:[address] [facility] Influenza Virus Vaccine Quad .5 mL IM 6+ MO 2020-06-15 00:00:[address] [facility] Pneumococcal Polysaccharide, PPSV23 (PNEUMOVAX) 2020-06-15 00:00:[address] [facility] Influenza Virus Vaccine Quad .5 mL IM 6+ MO 2020-06-15 00:00:[address] [facility] Pneumococcal Polysaccharide, PPSV23 (PNEUMOVAX) 2020-06-15 00:00:[address] [facility] Influenza Virus Vaccine Quad .5 mL IM 6+ MO 2020-06-15 00:00:[address] [facility] Pneumococcal Polysaccharide, PPSV23 (PNEUMOVAX) 2020-06-15 00:00:[address] [facility] Influenza Virus Vaccine Quad .5 mL IM 6+ MO 2020-06-15 00:00:[address] [facility] Pneumococcal Polysaccharide, PPSV23 (PNEUMOVAX) 2020-06-15 00:00:[address] [facility] Influenza Virus Vaccine Quad .5 mL IM 6+ MO 2020-06-15 00:00:[address] [facility] Pneumococcal Polysaccharide, PPSV23 (PNEUMOVAX) 2020-06-15 00:00:[address] [facility] Influenza Virus Vaccine Quad .5 mL IM 6+ MO 2020-06-15 00:00:[address] [facility] Pneumococcal Polysaccharide, PPSV23 (PNEUMOVAX) 2020-06-15 00:00:[address] [facility] Influenza Virus Vaccine Quad .5 mL IM 6+ MO 2020-06-15 00:00:[address] [facility] Pneumococcal Polysaccharide, PPSV23 (PNEUMOVAX) 2020-06-15 00:00:[address] [facility] Influenza Virus Vaccine Quad .5 mL IM 6+ MO 2020-06-15 00:00:[address] [facility] Pneumococcal Polysaccharide, PPSV23 (PNEUMOVAX) 2020-06-15 00:00:[address] [facility] Influenza Virus Vaccine Quad .5 mL IM 6+ MO 2020-06-15 00:00:[address] [facility] Pneumococcal Polysaccharide, PPSV23 (PNEUMOVAX) 2020-06-15 00:00:[address] [facility] Influenza Virus Vaccine Quad .5 mL IM 6+ MO 2020-06-15 00:00:[address] [facility] Pneumococcal Polysaccharide, PPSV23 (PNEUMOVAX) 2020-06-15 00:00:[address] [facility] Influenza Virus Vaccine Quad .5 mL IM 6+ MO 2020-06-15 00:00:[address] [facility] Pneumococcal Polysaccharide, PPSV23 (PNEUMOVAX) 2020-06-15 00:00:[address] [facility] Influenza Virus Vaccine Quad .5 mL IM 6+ MO 2020-06-15 00:00:[address] [facility] Pneumococcal Polysaccharide, PPSV23 (PNEUMOVAX) 2020-06-15 00:00:[address] [facility] Influenza Virus Vaccine Quad .5 mL IM 6+ MO 2020-06-15 00:00:[address] [facility] Pneumococcal Polysaccharide, PPSV23 (PNEUMOVAX) 2020-06-15 00:00:[address] [facility] Influenza Virus Vaccine Quad .5 mL IM 6+ MO 2020-06-15 00:00:[address] [facility] Pneumococcal Polysaccharide, PPSV23 (PNEUMOVAX) 2020-06-15 00:00:[address] [facility] Influenza Virus Vaccine Quad .5 mL IM 6+ MO 2020-06-15 00:00:[address] [facility] Pneumococcal Polysaccharide, PPSV23 (PNEUMOVAX) 2020-06-15 00:00:[address] [facility] Influenza Virus Vaccine Quad .5 mL IM 6+ MO 2020-06-15 00:00:[address] [facility] Pneumococcal Polysaccharide, PPSV23 (PNEUMOVAX) 2020-06-15 00:00:[address] [facility] Influenza Virus Vaccine Quad .5 mL IM 6+ MO 2020-06-15 00:00:[address] [facility] Pneumococcal Polysaccharide, PPSV23 (PNEUMOVAX) 2020-06-15 00:00:[address] [facility] Influenza Virus Vaccine Quad .5 mL IM 6+ MO 2020-06-15 00:00:[address] [facility] Pneumococcal Polysaccharide, PPSV23 (PNEUMOVAX) 2020-06-15 00:00:[address] [facility] Influenza Virus Vaccine Quad .5 mL IM 6+ MO 2020-06-15 00:00:[address] [facility] Pneumococcal Polysaccharide, PPSV23 (PNEUMOVAX) 2020-06-15 00:00:[address] [facility] Influenza Virus Vaccine Quad .5 mL IM 6+ MO 2020-06-15 00:00:[address] [facility] Pneumococcal Polysaccharide, PPSV23 (PNEUMOVAX) 2020-06-15 00:00:[address] [facility] Influenza Virus Vaccine Quad .5 mL IM 6+ MO 2020-06-15 00:00:[address] [facility] Pneumococcal Polysaccharide, PPSV23 (PNEUMOVAX) 2020-06-15 00:00:[address] [facility] Influenza Virus Vaccine Quad .5 mL IM 6+ MO 2020-06-15 00:00:[address] [facility] Pneumococcal Polysaccharide, PPSV23 (PNEUMOVAX) 2020-06-15 00:00:[address] [facility] Influenza Virus Vaccine Quad .5 mL IM 6+ MO 2020-06-15 00:00:[address] [facility] Pneumococcal Polysaccharide, PPSV23 (PNEUMOVAX) 2020-06-15 00:00:[address] [facility] Influenza Virus Vaccine Quad .5 mL IM 6+ MO 2020-06-15 00:00:[address] [facility] Pneumococcal Polysaccharide, PPSV23 (PNEUMOVAX) 2020-06-15 00:00:[address] [facility] Influenza Virus Vaccine Quad .5 mL IM 6+ MO 2020-06-15 00:00:[address] [facility] Pneumococcal Polysaccharide, PPSV23 (PNEUMOVAX) 2020-06-15 00:00:[address] [facility] Influenza Virus Vaccine Quad .5 mL IM 6+ MO 2020-06-15 00:00:[address] [facility] Pneumococcal Polysaccharide, PPSV23 (PNEUMOVAX) 2020-06-15 00:00:[address] [facility] Influenza Virus Vaccine Quad .5 mL IM 6+ MO 2020-06-15 00:00:[address] [facility] Pneumococcal Polysaccharide, PPSV23 (PNEUMOVAX) 2020-06-15 00:00:[address] [facility] Influenza Virus Vaccine Quad .5 mL IM 6+ MO 2020-06-15 00:00:[address] [facility] Pneumococcal Polysaccharide, PPSV23 (PNEUMOVAX) 2020-06-15 00:00:[address] [facility] Influenza Virus Vaccine Quad .5 mL IM 6+ MO 2020-06-15 00:00:[address] [facility] Pneumococcal Polysaccharide, PPSV23 (PNEUMOVAX) 2020-06-15 00:00:[address] [facility] Influenza Virus Vaccine Quad .5 mL IM 6+ MO 2020-06-15 00:00:[address] [facility] Pneumococcal Polysaccharide, PPSV23 (PNEUMOVAX) 2020-06-15 00:00:[address] [facility] Influenza Virus Vaccine Quad .5 mL IM 6+ MO 2020-06-15 00:00:[address] [facility] Pneumococcal Polysaccharide, PPSV23 (PNEUMOVAX) 2020-06-15 00:00:[address] [facility] Influenza Virus Vaccine Quad .5 mL IM 6+ MO 2020-06-15 00:00:[address] [facility] Pneumococcal Polysaccharide, PPSV23 (PNEUMOVAX) 2020-06-15 00:00:[address] [facility] Influenza Virus Vaccine Quad .5 mL IM 6+ MO 2020-06-15 00:00:[address] [facility] Pneumococcal Polysaccharide, PPSV23 (PNEUMOVAX) 2020-06-15 00:00:[address] [facility] Influenza Virus Vaccine Quad .5 mL IM 6+ MO 2020-06-15 00:00:[address] [facility] Pneumococcal Polysaccharide, PPSV23 (PNEUMOVAX) 2020-06-15 00:00:[address] [facility] Influenza Virus Vaccine Quad .5 mL IM 6+ MO 2020-06-15 00:00:[address] [facility] Pneumococcal Polysaccharide, PPSV23 (PNEUMOVAX) 2020-06-15 00:00:[address] [facility] Influenza Virus Vaccine Quad .5 mL IM 6+ MO 2020-06-15 00:00:[address] [facility] Pneumococcal Polysaccharide, PPSV23 (PNEUMOVAX) 2020-06-15 00:00:[address] [facility] Influenza Virus Vaccine Quad .5 mL IM 6+ MO 2020-06-15 00:00:[address] [facility] Pneumococcal Polysaccharide, PPSV23 (PNEUMOVAX) 2020-06-15 00:00:[address] [facility] Influenza Virus Vaccine Quad .5 mL IM 6+ MO 2020-06-15 00:00:[address] [facility] Pneumococcal Polysaccharide, PPSV23 (PNEUMOVAX) 2020-06-15 00:00:[address] [facility] Influenza Virus Vaccine Quad .5 mL IM 6+ MO 2020-06-15 00:00:[address] [facility] Pneumococcal Polysaccharide, PPSV23 (PNEUMOVAX) 2020-06-15 00:00:[address] [facility] Influenza Virus Vaccine Quad .5 mL IM 6+ MO 2020-06-15 00:00:[address] [facility] Pneumococcal Polysaccharide, PPSV23 (PNEUMOVAX) 2020-06-15 00:00:[address] [facility] Influenza Virus Vaccine Quad .5 mL IM 6+ MO 2020-06-15 00:00:[address] [facility] Pneumococcal Polysaccharide, PPSV23 (PNEUMOVAX) 2020-06-15 00:00:[address] [facility] Influenza Virus Vaccine Quad .5 mL IM 6+ MO 2020-06-15 00:00:[address] [facility] Pneumococcal Polysaccharide, PPSV23 (PNEUMOVAX) 2020-06-15 00:00:[address] [facility] Influenza Virus Vaccine Quad .5 mL IM 6+ MO 2020-06-15 00:00:[address] [facility] Pneumococcal Polysaccharide, PPSV23 (PNEUMOVAX) 2020-06-15 00:00:[address] [facility] Influenza Virus Vaccine Quad .5 mL IM 6+ MO 2020-06-15 00:00:[address] [facility] Pneumococcal Polysaccharide, PPSV23 (PNEUMOVAX) 2020-06-15 00:00:[address] [facility] Influenza Virus Vaccine Quad .5 mL IM 6+ MO 2020-06-15 00:00:[address] [facility] Pneumococcal Polysaccharide, PPSV23 (PNEUMOVAX) 2020-06-15 00:00:[address] [facility] Influenza Virus Vaccine Quad .5 mL IM 6+ MO 2020-06-15 00:00:[address] [facility] Pneumococcal Polysaccharide, PPSV23 (PNEUMOVAX) 2020-06-15 00:00:[address] [facility] Influenza Virus Vaccine Quad .5 mL IM 6+ MO 2020-06-15 00:00:[address] [facility] Pneumococcal Polysaccharide, PPSV23 (PNEUMOVAX) 2020-06-15 00:00:[address] [facility] Influenza Virus Vaccine Quad .5 mL IM 6+ MO 2020-06-15 00:00:[address] [facility] Pneumococcal Polysaccharide, PPSV23 (PNEUMOVAX) 2020-06-15 00:00:[address] [facility] Influenza Virus Vaccine Quad .5 mL IM 6+ MO 2020-06-15 00:00:[address] [facility] Pneumococcal Polysaccharide, PPSV23 (PNEUMOVAX) 2020-06-15 00:00:[address] [facility] Influenza Virus Vaccine Quad .5 mL IM 6+ MO 2020-06-15 00:00:[address] [facility] Pneumococcal Polysaccharide, PPSV23 (PNEUMOVAX) 2020-06-15 00:00:[address] [facility] Influenza Virus Vaccine Quad .5 mL IM 6+ MO 2020-06-15 00:00:[address] [facility] Pneumococcal Polysaccharide, PPSV23 (PNEUMOVAX) 2020-06-15 00:00:[address] [facility] Influenza Virus Vaccine Quad .5 mL IM 6+ MO (FLUZONE/FLULAVAL/F LUARIX) 2020-06-15 00:00:[address] [facility] Pneumococcal Polysaccharide, PPSV23 (PNEUMOVAX) 2020-06-15 00:00:[address] [facility] Influenza Virus Vaccine Quad .5 mL IM 6+ MO (FLUZONE/FLULAVAL/F LUARIX) 2020-06-15 00:00:[address] [facility] Pneumococcal Polysaccharide, PPSV23 (PNEUMOVAX) 2020-06-15 00:00:[address] [facility] Influenza Virus Vaccine Quad .5 mL IM 6+ MO (FLUZONE/FLULAVAL/F LUARIX) 2020-06-15 00:00:[address] [facility] Pneumococcal Polysaccharide, PPSV23 (PNEUMOVAX) 2020-06-15 00:00:[address] [facility] Influenza Virus Vaccine Quad .5 mL IM 6+ MO (FLUZONE/FLULAVAL/F LUARIX) 2020-06-15 00:00:[address] [facility] Pneumococcal Polysaccharide, PPSV23 (PNEUMOVAX) 2020-06-15 00:00:[address] [facility] Influenza Virus Vaccine Quad .5 mL IM 6+ MO (FLUZONE/FLULAVAL/F LUARIX) 2020-06-15 00:00:[address] [facility] Pneumococcal Polysaccharide, PPSV23 (PNEUMOVAX) 2020-06-15 00:00:00 Completed Influenza Virus Vaccine Quad .5 mL IM 6+ MO (FLUZONE/FLULAVAL/F LUARIX) 2020-06-15 00:00:00 Completed Pneumococcal Polysaccharide, PPSV23 (PNEUMOVAX) Unknown Completed [facility] Influenza Virus Vaccine Quad .5 mL IM 6+ MO (FLUZONE/FLULAVAL/F LUARIX) Unknown Completed [facility] SARS-COV-2 COVID-19 MODERNA 12+ YRS VACCINE Unknown Completed [facility] SARS-COV-2 COVID-19 MODERNA 0.25ML BOOSTER VACCINE Unknown Completed [facility] Influenza Virus Vaccine Recomb Quad IM, Preserv and ABX Free 18-[address] [facility] Pneumococcal Polysaccharide, PPSV23 (PNEUMOVAX) Unknown Completed [facility] Influenza Virus Vaccine Quad .5 mL IM 6+ MO (FLUZONE/FLULAVAL/F LUARIX) Unknown Completed [facility] SARS-COV-2 COVID-19 MODERNA 12+ YRS VACCINE Unknown Completed [facility] SARS-COV-2 COVID-19 MODERNA 0.25ML BOOSTER VACCINE Unknown Completed [facility] Influenza Virus Vaccine Recomb Quad IM, Preserv and ABX Free 18-[address] [facility] Pneumococcal Polysaccharide, PPSV23 (PNEUMOVAX) Unknown Completed [facility] Influenza Virus Vaccine Quad .5 mL IM 6+ MO (FLUZONE/FLULAVAL/F LUARIX) Unknown Completed [facility] SARS-COV-2 COVID-19 MODERNA 12+ YRS VACCINE Unknown Completed [facility] SARS-COV-2 COVID-19 MODERNA 0.25ML BOOSTER VACCINE Unknown Completed [facility] Influenza Virus Vaccine Recomb Quad IM, Preserv and ABX Free 18-[address] [facility] Pneumococcal Polysaccharide, PPSV23 (PNEUMOVAX) Unknown Completed [facility] Influenza Virus Vaccine Quad .5 mL IM 6+ MO (FLUZONE/FLULAVAL/F LUARIX) Unknown Completed [facility] SARS-COV-2 COVID-19 MODERNA 12+ YRS VACCINE Unknown Completed [facility] SARS-COV-2 COVID-19 MODERNA 0.25ML BOOSTER VACCINE Unknown Completed [facility] Influenza Virus Vaccine Recomb Quad IM, Preserv and ABX Free 18-[address] [facility] Pneumococcal Polysaccharide, PPSV23 (PNEUMOVAX) Unknown Completed [facility] Influenza Virus Vaccine Quad .5 mL IM 6+ MO (FLUZONE/FLULAVAL/F LUARIX) Unknown Completed [facility] SARS-COV-2 COVID-19 MODERNA 12+ YRS VACCINE Unknown Completed [facility] SARS-COV-2 COVID-19 MODERNA 0.25ML BOOSTER VACCINE Unknown Completed [facility] Influenza Virus Vaccine Recomb Quad IM, Preserv and ABX Free 18-[address] [facility] Pneumococcal Polysaccharide, PPSV23 (PNEUMOVAX) Unknown Completed [facility] Influenza Virus Vaccine Quad .5 mL IM 6+ MO (FLUZONE/FLULAVAL/F LUARIX) Unknown Completed [facility] SARS-COV-2 COVID-19 MODERNA 12+ YRS VACCINE Unknown Completed [facility] SARS-COV-2 COVID-19 MODERNA 0.25ML BOOSTER VACCINE Unknown Completed [facility] Pneumococcal Polysaccharide, PPSV23 (PNEUMOVAX) Unknown Completed [facility] Influenza Virus Vaccine Quad .5 mL IM 6+ MO (FLUZONE/FLULAVAL/F LUARIX) Unknown Completed [facility] SARS-COV-2 COVID-19 MODERNA 12+ YRS VACCINE Unknown Completed [facility] SARS-COV-2 COVID-19 MODERNA 0.25ML BOOSTER VACCINE Unknown Completed [facility] Influenza Virus Vaccine Recomb Quad IM, Preserv and ABX Free 18-[address] [facility] Pneumococcal Polysaccharide, PPSV23 (PNEUMOVAX) Unknown Completed [facility] Influenza Virus Vaccine Quad .5 mL IM 6+ MO (FLUZONE/FLULAVAL/F LUARIX) Unknown Completed [facility] SARS-COV-2 COVID-19 MODERNA 12+ YRS VACCINE Unknown Completed [facility] SARS-COV-2 COVID-19 MODERNA 0.25ML BOOSTER VACCINE Unknown Completed [facility] Influenza Virus Vaccine Recomb Quad IM, Preserv and ABX Free 18-[address] [facility] Pneumococcal Polysaccharide, PPSV23 (PNEUMOVAX) Unknown Completed [facility] Influenza Virus Vaccine Quad .5 mL IM 6+ MO (FLUZONE/FLULAVAL/F LUARIX) Unknown Completed [facility] SARS-COV-2 COVID-19 MODERNA 12+ YRS VACCINE Unknown Completed [facility] SARS-COV-2 COVID-19 MODERNA 0.25ML BOOSTER VACCINE Unknown Completed [facility] Influenza Virus Vaccine Recomb Quad IM, Preserv and ABX Free 18-[address] [facility] Pneumococcal Polysaccharide, PPSV23 (PNEUMOVAX) Unknown Completed [facility] Influenza Virus Vaccine Quad .5 mL IM 6+ MO (FLUZONE/FLULAVAL/F LUARIX) Unknown Completed [facility] SARS-COV-2 COVID-19 MODERNA 12+ YRS VACCINE Unknown Completed [facility] SARS-COV-2 COVID-19 MODERNA 0.25ML BOOSTER VACCINE Unknown Completed [facility] Influenza Virus Vaccine Recomb Quad IM, Preserv and ABX Free 18-[address] [facility] Pneumococcal Polysaccharide, PPSV23 (PNEUMOVAX) Unknown Completed [facility] Influenza Virus Vaccine Quad .5 mL IM 6+ MO (FLUZONE/FLULAVAL/F LUARIX) Unknown Completed [facility] SARS-COV-2 COVID-19 MODERNA 12+ YRS VACCINE Unknown Completed [facility] SARS-COV-2 COVID-19 MODERNA 0.25ML BOOSTER VACCINE Unknown Completed [facility] Influenza Virus Vaccine Recomb Quad IM, Preserv and ABX Free 18-[address] [facility] Pneumococcal Polysaccharide, PPSV23 (PNEUMOVAX) Unknown Completed [facility] Influenza Virus Vaccine Quad .5 mL IM 6+ MO (FLUZONE/FLULAVAL/F LUARIX) Unknown Completed [facility] SARS-COV-2 COVID-19 MODERNA 12+ YRS VACCINE Unknown Completed [facility] SARS-COV-2 COVID-19 MODERNA 0.25ML BOOSTER VACCINE Unknown Completed [facility] Influenza Virus Vaccine Recomb Quad IM, Preserv and ABX Free 18-[address] [facility] Pneumococcal Polysaccharide, PPSV23 (PNEUMOVAX) Unknown Completed [facility] Influenza Virus Vaccine Quad .5 mL IM 6+ MO (FLUZONE/FLULAVAL/F LUARIX) Unknown Completed [facility] SARS-COV-2 COVID-19 MODERNA 12+ YRS VACCINE Unknown Completed [facility] SARS-COV-2 COVID-19 MODERNA 0.25ML BOOSTER VACCINE Unknown Completed [facility] Influenza Virus Vaccine Recomb Quad IM, Preserv and ABX Free 18-[address] [facility] Pneumococcal Polysaccharide, PPSV23 (PNEUMOVAX) Unknown Completed [facility] Influenza Virus Vaccine Quad .5 mL IM 6+ MO (FLUZONE/FLULAVAL/F LUARIX) Unknown Completed [facility] SARS-COV-2 COVID-19 MODERNA 12+ YRS VACCINE Unknown Completed [facility] SARS-COV-2 COVID-19 MODERNA 0.25ML BOOSTER VACCINE Unknown Completed [facility] Influenza Virus Vaccine Recomb Quad IM, Preserv and ABX Free 18-[address] [facility] Pneumococcal Polysaccharide, PPSV23 (PNEUMOVAX) Unknown Completed [facility] Influenza Virus Vaccine Quad .5 mL IM 6+ MO (FLUZONE/FLULAVAL/F LUARIX) Unknown Completed [facility] SARS-COV-2 COVID-19 MODERNA 12+ YRS VACCINE Unknown Completed [facility] SARS-COV-2 COVID-19 MODERNA 0.25ML BOOSTER VACCINE Unknown Completed [facility] Influenza Virus Vaccine Recomb Quad IM, Preserv and ABX Free 18-[address] [facility] Pneumococcal Polysaccharide, PPSV23 (PNEUMOVAX) Unknown Completed [facility] Influenza Virus Vaccine Quad .5 mL IM 6+ MO (FLUZONE/FLULAVAL/F LUARIX) Unknown Completed [facility] SARS-COV-2 COVID-19 MODERNA 12+ YRS VACCINE Unknown Completed [facility] SARS-COV-2 COVID-19 MODERNA 0.25ML BOOSTER VACCINE Unknown Completed [facility] Influenza Virus Vaccine Recomb Quad IM, Preserv and ABX Free 18-[address] [facility] Pneumococcal Polysaccharide, PPSV23 (PNEUMOVAX) Unknown Completed [facility] Influenza Virus Vaccine Quad .5 mL IM 6+ MO (FLUZONE/FLULAVAL/F LUARIX) Unknown Completed [facility] SARS-COV-2 COVID-19 MODERNA 12+ YRS VACCINE Unknown Completed [facility] SARS-COV-2 COVID-19 MODERNA 0.25ML BOOSTER VACCINE Unknown Completed [facility] Influenza Virus Vaccine Recomb Quad IM, Preserv and ABX Free 18-[address] [facility] Pneumococcal Polysaccharide, PPSV23 (PNEUMOVAX) Unknown Completed [facility] Influenza Virus Vaccine Quad .5 mL IM 6+ MO (FLUZONE/FLULAVAL/F LUARIX) Unknown Completed [facility] SARS-COV-2 COVID-19 MODERNA 12+ YRS VACCINE Unknown Completed [facility] SARS-COV-2 COVID-19 MODERNA 0.25ML BOOSTER VACCINE Unknown Completed [facility] Influenza Virus Vaccine Recomb Quad IM, Preserv and ABX Free 18-[address] [facility] Pneumococcal Polysaccharide, PPSV23 (PNEUMOVAX) Unknown Completed [facility] Influenza Virus Vaccine Quad .5 mL IM 6+ MO (FLUZONE/FLULAVAL/F LUARIX) Unknown Completed [facility] SARS-COV-2 COVID-19 MODERNA 12+ YRS VACCINE Unknown Completed [facility] SARS-COV-2 COVID-19 MODERNA 0.25ML BOOSTER VACCINE Unknown Completed [facility] Influenza Virus Vaccine Recomb Quad IM, Preserv and ABX Free 18-[address] [facility] Pneumococcal Polysaccharide, PPSV23 (PNEUMOVAX) Unknown Completed [facility] Influenza Virus Vaccine Quad .5 mL IM 6+ MO (FLUZONE/FLULAVAL/F LUARIX) Unknown Completed [facility] SARS-COV-2 COVID-19 MODERNA 12+ YRS VACCINE Unknown Completed [facility] SARS-COV-2 COVID-19 MODERNA 0.25ML BOOSTER VACCINE Unknown Completed [facility] Influenza Virus Vaccine Recomb Quad IM, Preserv and ABX Free 18-[address] [facility] Pneumococcal Polysaccharide, PPSV23 (PNEUMOVAX) Unknown Completed [facility] Influenza Virus Vaccine Quad .5 mL IM 6+ MO (FLUZONE/FLULAVAL/F LUARIX) Unknown Completed [facility] SARS-COV-2 COVID-19 MODERNA 12+ YRS VACCINE Unknown Completed [facility] SARS-COV-2 COVID-19 MODERNA 0.25ML BOOSTER VACCINE Unknown Completed [facility] Influenza Virus Vaccine Recomb Quad IM, Preserv and ABX Free 18-[address] [facility] Pneumococcal Polysaccharide, PPSV23 (PNEUMOVAX) Unknown Completed [facility] Influenza Virus Vaccine Quad .5 mL IM 6+ MO (FLUZONE/FLULAVAL/F LUARIX) Unknown Completed [facility] SARS-COV-2 COVID-19 MODERNA 12+ YRS VACCINE Unknown Completed [facility] SARS-COV-2 COVID-19 MODERNA 0.25ML BOOSTER VACCINE Unknown Completed [facility] Influenza Virus Vaccine Recomb Quad IM, Preserv and ABX Free 18-[address] [facility] Pneumococcal Polysaccharide, PPSV23 (PNEUMOVAX) Unknown Completed [facility] Influenza Virus Vaccine Quad .5 mL IM 6+ MO (FLUZONE/FLULAVAL/F LUARIX) Unknown Completed [facility] SARS-COV-2 COVID-19 MODERNA 12+ YRS VACCINE Unknown Completed [facility] SARS-COV-2 COVID-19 MODERNA 0.25ML BOOSTER VACCINE Unknown Completed [facility] Influenza Virus Vaccine Recomb Quad IM, Preserv and ABX Free 18-[address] [facility] Pneumococcal Polysaccharide, PPSV23 (PNEUMOVAX) Unknown Completed [facility] Influenza Virus Vaccine Quad .5 mL IM 6+ MO (FLUZONE/FLULAVAL/F LUARIX) Unknown Completed [facility] SARS-COV-2 COVID-19 MODERNA 12+ YRS VACCINE Unknown Completed [facility] SARS-COV-2 COVID-19 MODERNA 0.25ML BOOSTER VACCINE Unknown Completed [facility] Influenza Virus Vaccine Recomb Quad IM, Preserv and ABX Free 18-[address] [facility] Pneumococcal Polysaccharide, PPSV23 (PNEUMOVAX) Unknown Completed [facility] Influenza Virus Vaccine Quad .5 mL IM 6+ MO (FLUZONE/FLULAVAL/F LUARIX) Unknown Completed [facility] SARS-COV-2 COVID-19 MODERNA 12+ YRS VACCINE Unknown Completed [facility] SARS-COV-2 COVID-19 MODERNA 0.25ML BOOSTER VACCINE Unknown Completed [facility] Influenza Virus Vaccine Recomb Quad IM, Preserv and ABX Free 18-[address] [facility] Pneumococcal Polysaccharide, PPSV23 (PNEUMOVAX) Unknown Completed [facility] Influenza Virus Vaccine Quad .5 mL IM 6+ MO (FLUZONE/FLULAVAL/F LUARIX) Unknown Completed [facility] SARS-COV-2 COVID-19 MODERNA 12+ YRS VACCINE Unknown Completed [facility] SARS-COV-2 COVID-19 MODERNA 0.25ML BOOSTER VACCINE Unknown Completed [facility] Influenza Virus Vaccine Recomb Quad IM, Preserv and ABX Free 18-[address] [facility] Pneumococcal Polysaccharide, PPSV23 (PNEUMOVAX) Unknown Completed [facility] Influenza Virus Vaccine Quad .5 mL IM 6+ MO (FLUZONE/FLULAVAL/F LUARIX) Unknown Completed [facility] SARS-COV-2 COVID-19 MODERNA 0.25ML BOOSTER VACCINE Unknown Completed [facility] Influenza Virus Vaccine Recomb Quad IM, Preserv and ABX Free 18-[address] [facility] Influenza Virus Vaccine Quad IM, Preserv and ABX Free 6 MO-64 YRS (FLUCELVAX) Unknown Completed [facility] Pneumococcal 20 Conjugate, PCV20 (Prevnar 20) Unknown Completed [facility] SARS-COV-2 COVID-19 MODERNA 12+ YRS VACCINE Unknown Completed [facility] Pneumococcal Polysaccharide, PPSV23 (PNEUMOVAX) Unknown Completed [facility] Influenza Virus Vaccine Quad .5 mL IM 6+ MO (FLUZONE/FLULAVAL/F LUARIX) Unknown Completed [facility] SARS-COV-2 COVID-19 MODERNA 12+ YRS VACCINE Unknown Completed [facility] SARS-COV-2 COVID-19 MODERNA 0.25ML BOOSTER VACCINE Unknown Completed [facility] Influenza Virus Vaccine Recomb Quad IM, Preserv and ABX Free 18-[address] [facility] Influenza Virus Vaccine Quad IM, Preserv and ABX Free 6 MO-64 YRS (FLUCELVAX) Unknown Completed [facility] Pneumococcal 20 Conjugate, PCV20 (Prevnar 20) Unknown Completed [facility] Pneumococcal Polysaccharide, PPSV23 (PNEUMOVAX) Unknown Completed [facility] Influenza Virus Vaccine Quad .5 mL IM 6+ MO (FLUZONE/FLULAVAL/F LUARIX) Unknown Completed [facility] SARS-COV-2 COVID-19 MODERNA 12+ YRS VACCINE Unknown Completed [facility] SARS-COV-2 COVID-19 MODERNA 0.25ML BOOSTER VACCINE Unknown Completed [facility] Influenza Virus Vaccine Recomb Quad IM, Preserv and ABX Free 18-[address] [facility] Influenza Virus Vaccine Quad IM, Preserv and ABX Free 6 MO-64 YRS (FLUCELVAX) Unknown Completed [facility] Pneumococcal 20 Conjugate, PCV20 (Prevnar 20) Unknown Completed [facility] Pneumococcal Polysaccharide, PPSV23 (PNEUMOVAX) Unknown Completed [facility] Influenza Virus Vaccine Quad .5 mL IM 6+ MO (FLUZONE/FLULAVAL/F LUARIX) Unknown Completed [facility] SARS-COV-2 COVID-19 MODERNA 12+ YRS VACCINE Unknown Completed [facility] SARS-COV-2 COVID-19 MODERNA 0.25ML BOOSTER VACCINE Unknown Completed [facility] Influenza Virus Vaccine Recomb Quad IM, Preserv and ABX Free 18-[address] [facility] Influenza Virus Vaccine Quad IM, Preserv and ABX Free 6 MO-64 YRS (FLUCELVAX) Unknown Completed [facility] Pneumococcal 20 Conjugate, PCV20 (Prevnar 20) Unknown Completed [facility] Pneumococcal Polysaccharide, PPSV23 (PNEUMOVAX) Unknown Completed [facility] Influenza Virus Vaccine Quad .5 mL IM 6+ MO (FLUZONE/FLULAVAL/F LUARIX) Unknown Completed [facility] SARS-COV-2 COVID-19 MODERNA 0.25ML BOOSTER VACCINE Unknown Completed [facility] Influenza Virus Vaccine Recomb Quad IM, Preserv and ABX Free 18-[address] [facility] Influenza Virus Vaccine Quad IM, Preserv and ABX Free 6 MO-64 YRS (FLUCELVAX) Unknown Completed [facility] Pneumococcal 20 Conjugate, PCV20 (Prevnar 20) Unknown Completed [facility] SARS-COV-2 COVID-19 MODERNA 12+ YRS VACCINE Unknown Completed [facility] Pneumococcal Polysaccharide, PPSV23 (PNEUMOVAX) Unknown Completed [facility] Influenza Virus Vaccine Quad .5 mL IM 6+ MO (FLUZONE/FLULAVAL/F LUARIX) Unknown Completed [facility] SARS-COV-2 COVID-19 MODERNA 12+ YRS VACCINE Unknown Completed [facility] SARS-COV-2 COVID-19 MODERNA 0.25ML BOOSTER VACCINE Unknown Completed [facility] Influenza Virus Vaccine Recomb Quad IM, Preserv and ABX Free 18-[address] [facility] Influenza Virus Vaccine Quad IM, Preserv and ABX Free 6 MO-64 YRS (FLUCELVAX) Unknown Completed [facility] Pneumococcal 20 Conjugate, PCV20 (Prevnar 20) Unknown Completed [facility] Pneumococcal Polysaccharide, PPSV23 (PNEUMOVAX) Unknown Completed [facility] Influenza Virus Vaccine Quad .5 mL IM 6+ MO (FLUZONE/FLULAVAL/F LUARIX) Unknown Completed [facility] SARS-COV-2 COVID-19 MODERNA 12+ YRS VACCINE Unknown Completed [facility] SARS-COV-2 COVID-19 MODERNA 0.25ML BOOSTER VACCINE Unknown Completed [facility] Influenza Virus Vaccine Recomb Quad IM, Preserv and ABX Free 18-[address] [facility] Influenza Virus Vaccine Quad IM, Preserv and ABX Free 6 MO-64 YRS (FLUCELVAX) Unknown Completed [facility] Pneumococcal 20 Conjugate, PCV20 (Prevnar 20) Unknown Completed [facility] Pneumococcal Polysaccharide, PPSV23 (PNEUMOVAX) Unknown Completed [facility] Influenza Virus Vaccine Quad .5 mL IM 6+ MO (FLUZONE/FLULAVAL/F LUARIX) Unknown Completed [facility] SARS-COV-2 COVID-19 MODERNA 12+ YRS VACCINE Unknown Completed [facility] SARS-COV-2 COVID-19 MODERNA 0.25ML BOOSTER VACCINE Unknown Completed [facility] Influenza Virus Vaccine Recomb Quad IM, Preserv and ABX Free 18-[address] [facility] Influenza Virus Vaccine Quad IM, Preserv and ABX Free 6 MO-64 YRS (FLUCELVAX) Unknown Completed [facility] Pneumococcal 20 Conjugate, PCV20 (Prevnar 20) Unknown Completed [facility] Pneumococcal Polysaccharide, PPSV23 (PNEUMOVAX) Unknown Completed [facility] Influenza Virus Vaccine Quad .5 mL IM 6+ MO (FLUZONE/FLULAVAL/F LUARIX) Unknown Completed [facility] SARS-COV-2 COVID-19 MODERNA 12+ YRS VACCINE Unknown Completed [facility] SARS-COV-2 COVID-19 MODERNA 0.25ML BOOSTER VACCINE Unknown Completed [facility] Influenza Virus Vaccine Recomb Quad IM, Preserv and ABX Free 18-[address] [facility] Influenza Virus Vaccine Quad IM, Preserv and ABX Free 6 MO-64 YRS (FLUCELVAX) Unknown Completed [facility] Pneumococcal 20 Conjugate, PCV20 (Prevnar 20) Unknown Completed [facility] Pneumococcal Polysaccharide, PPSV23 (PNEUMOVAX) Unknown Completed [facility] Influenza Virus Vaccine Quad .5 mL IM 6+ MO (FLUZONE/FLULAVAL/F LUARIX) Unknown Completed [facility] SARS-COV-2 COVID-19 MODERNA 12+ YRS VACCINE Unknown Completed [facility] SARS-COV-2 COVID-19 MODERNA 0.25ML BOOSTER VACCINE Unknown Completed [facility] Influenza Virus Vaccine Recomb Quad IM, Preserv and ABX Free 18-[address] [facility] Influenza Virus Vaccine Quad IM, Preserv and ABX Free 6 MO-64 YRS (FLUCELVAX) Unknown Completed [facility] Pneumococcal 20 Conjugate, PCV20 (Prevnar 20) Unknown Completed [facility] Pneumococcal Polysaccharide, PPSV23 (PNEUMOVAX) Unknown Completed [facility] Influenza Virus Vaccine Quad .5 mL IM 6+ MO (FLUZONE/FLULAVAL/F LUARIX) Unknown Completed [facility] SARS-COV-2 COVID-19 MODERNA 12+ YRS VACCINE Unknown Completed [facility] SARS-COV-2 COVID-19 MODERNA 0.25ML BOOSTER VACCINE Unknown Completed [facility] Influenza Virus Vaccine Recomb Quad IM, Preserv and ABX Free 18-[address] [facility] Influenza Virus Vaccine Quad IM, Preserv and ABX Free 6 MO-64 YRS (FLUCELVAX) Unknown Completed [facility] Pneumococcal 20 Conjugate, PCV20 (Prevnar 20) Unknown Completed [facility] Pneumococcal Polysaccharide, PPSV23 (PNEUMOVAX) Unknown Completed [facility] Influenza Virus Vaccine Quad .5 mL IM 6+ MO (FLUZONE/FLULAVAL/F LUARIX) Unknown Completed [facility] SARS-COV-2 COVID-19 MODERNA 12+ YRS VACCINE Unknown Completed [facility] SARS-COV-2 COVID-19 MODERNA 0.25ML BOOSTER VACCINE Unknown Completed [facility] Influenza Virus Vaccine Recomb Quad IM, Preserv and ABX Free 18-[address] [facility] Influenza Virus Vaccine Quad IM, Preserv and ABX Free 6 MO-64 YRS (FLUCELVAX) Unknown Completed [facility] Pneumococcal 20 Conjugate, PCV20 (Prevnar 20) Unknown Completed [facility] Pneumococcal Polysaccharide, PPSV23 (PNEUMOVAX) Unknown Completed [facility] Influenza Virus Vaccine Quad .5 mL IM 6+ MO (FLUZONE/FLULAVAL/F LUARIX) Unknown Completed [facility] SARS-COV-2 COVID-19 MODERNA 0.25ML BOOSTER VACCINE Unknown Completed [facility] Influenza Virus Vaccine Recomb Quad IM, Preserv and ABX Free 18-64 [address] [facility] Influenza Virus Vaccine Quad IM, Preserv and ABX Free 6 MO-64 YRS (FLUCELVAX) Unknown Completed [facility] Pneumococcal 20 Conjugate, PCV20 (Prevnar 20) Unknown Completed [facility] SARS-COV-2 COVID-19 MODERNA 12+ YRS VACCINE Unknown Completed [facility] Pneumococcal Polysaccharide, PPSV23 (PNEUMOVAX) Unknown Completed [facility] Influenza Virus Vaccine Quad .5 mL IM 6+ MO (FLUZONE/FLULAVAL/F LUARIX) Unknown Completed [facility] SARS-COV-2 COVID-19 MODERNA 12+ YRS VACCINE Unknown Completed [facility] SARS-COV-2 COVID-19 MODERNA 0.25ML BOOSTER VACCINE Unknown Completed [facility] Influenza Virus Vaccine Recomb Quad IM, Preserv and ABX Free 18-64 [address] [facility] Influenza Virus Vaccine Quad IM, Preserv and ABX Free 6 MO-64 YRS (FLUCELVAX) Unknown Completed [facility] Pneumococcal 20 Conjugate, PCV20 (Prevnar 20) Unknown Completed [facility] Pneumococcal Polysaccharide, PPSV23 (PNEUMOVAX) Unknown Completed [facility] Influenza Virus Vaccine Quad .5 mL IM 6+ MO (FLUZONE/FLULAVAL/F LUARIX) Unknown Completed [facility] SARS-COV-2 COVID-19 MODERNA 12+ YRS VACCINE Unknown Completed [facility] SARS-COV-2 COVID-19 MODERNA 0.25ML BOOSTER VACCINE Unknown Completed [facility] Influenza Virus Vaccine Recomb Quad IM, Preserv and ABX Free 18-[address] [facility] Influenza Virus Vaccine Quad IM, Preserv and ABX Free 6 MO-64 YRS (FLUCELVAX) Unknown Completed [facility] Pneumococcal 20 Conjugate, PCV20 (Prevnar 20) Unknown Completed [facility] Pneumococcal Polysaccharide, PPSV23 (PNEUMOVAX) Unknown Completed [facility] Influenza Virus Vaccine Quad .5 mL IM 6+ MO (FLUZONE/FLULAVAL/F LUARIX) Unknown Completed [facility] SARS-COV-2 COVID-19 MODERNA 12+ YRS VACCINE Unknown Completed [facility] SARS-COV-2 COVID-19 MODERNA 0.25ML BOOSTER VACCINE Unknown Completed [facility] Influenza Virus Vaccine Recomb Quad IM, Preserv and ABX Free 18-[address] [facility] Influenza Virus Vaccine Quad IM, Preserv and ABX Free 6 MO-64 YRS (FLUCELVAX) Unknown Completed [facility] Pneumococcal 20 Conjugate, PCV20 (Prevnar 20) Unknown Completed [facility] Pneumococcal Polysaccharide, PPSV23 (PNEUMOVAX) Unknown Completed [facility] Influenza Virus Vaccine Quad .5 mL IM 6+ MO (FLUZONE/FLULAVAL/F LUARIX) Unknown Completed [facility] SARS-COV-2 COVID-19 MODERNA 12+ YRS VACCINE Unknown Completed [facility] SARS-COV-2 COVID-19 MODERNA 0.25ML BOOSTER VACCINE Unknown Completed [facility] Influenza Virus Vaccine Recomb Quad IM, Preserv and ABX Free 18-[address] [facility] Influenza Virus Vaccine Quad IM, Preserv and ABX Free 6 MO-64 YRS (FLUCELVAX) Unknown Completed [facility] Pneumococcal 20 Conjugate, PCV20 (Prevnar 20) Unknown Completed [facility] Pneumococcal Polysaccharide, PPSV23 (PNEUMOVAX) Unknown Completed [facility] Influenza Virus Vaccine Quad .5 mL IM 6+ MO (FLUZONE/FLULAVAL/F LUARIX) Unknown Completed [facility] SARS-COV-2 COVID-19 MODERNA 12+ YRS VACCINE Unknown Completed [facility] SARS-COV-2 COVID-19 MODERNA 0.25ML BOOSTER VACCINE Unknown Completed [facility] Influenza Virus Vaccine Recomb Quad IM, Preserv and ABX Free 18-[address] [facility] Influenza Virus Vaccine Quad IM, Preserv and ABX Free 6 MO-64 YRS (FLUCELVAX) Unknown Completed [facility] Pneumococcal 20 Conjugate, PCV20 (Prevnar 20) Unknown Completed [facility] Pneumococcal Polysaccharide, PPSV23 (PNEUMOVAX) Unknown Completed [facility] Influenza Virus Vaccine Quad .5 mL IM 6+ MO (FLUZONE/FLULAVAL/F LUARIX) Unknown Completed [facility] SARS-COV-2 COVID-19 MODERNA 12+ YRS VACCINE Unknown Completed [facility] SARS-COV-2 COVID-19 MODERNA 0.25ML BOOSTER VACCINE Unknown Completed [facility] Influenza Virus Vaccine Recomb Quad IM, Preserv and ABX Free 18-64 [address] [facility] Influenza Virus Vaccine Quad IM, Preserv and ABX Free 6 MO-64 YRS (FLUCELVAX) Unknown Completed [facility] Pneumococcal 20 Conjugate, PCV20 (Prevnar 20) Unknown Completed [facility] Pneumococcal Polysaccharide, PPSV23 (PNEUMOVAX) Unknown Completed [facility] Influenza Virus Vaccine Quad .5 mL IM 6+ MO (FLUZONE/FLULAVAL/F LUARIX) Unknown Completed [facility] SARS-COV-2 COVID-19 MODERNA 12+ YRS VACCINE Unknown Completed [facility] SARS-COV-2 COVID-19 MODERNA 0.25ML BOOSTER VACCINE Unknown Completed [facility] Influenza Virus Vaccine Recomb Quad IM, Preserv and ABX Free 18-[address] [facility] Influenza Virus Vaccine Quad IM, Preserv and ABX Free 6 MO-64 YRS (FLUCELVAX) Unknown Completed [facility] Pneumococcal 20 Conjugate, PCV20 (Prevnar 20) Unknown Completed [facility] Pneumococcal Polysaccharide, PPSV23 (PNEUMOVAX) Unknown Completed [facility] Influenza Virus Vaccine Quad .5 mL IM 6+ MO (FLUZONE/FLULAVAL/F LUARIX) Unknown Completed [facility] SARS-COV-2 COVID-19 MODERNA 12+ YRS VACCINE Unknown Completed [facility] SARS-COV-2 COVID-19 MODERNA 0.25ML BOOSTER VACCINE Unknown Completed [facility] Influenza Virus Vaccine Recomb Quad IM, Preserv and ABX Free 18-[address] [facility] Influenza Virus Vaccine Quad IM, Preserv and ABX Free 6 MO-64 YRS (FLUCELVAX) Unknown Completed [facility] Pneumococcal 20 Conjugate, PCV20 (Prevnar 20) Unknown Completed [facility] Pneumococcal Polysaccharide, PPSV23 (PNEUMOVAX) Unknown Completed [facility] Influenza Virus Vaccine Quad .5 mL IM 6+ MO (FLUZONE/FLULAVAL/F LUARIX) Unknown Completed [facility] SARS-COV-2 COVID-19 MODERNA 12+ YRS VACCINE Unknown Completed [facility] SARS-COV-2 COVID-19 MODERNA 0.25ML BOOSTER VACCINE Unknown Completed [facility] Influenza Virus Vaccine Recomb Quad IM, Preserv and ABX Free 18-[address] [facility] Influenza Virus Vaccine Quad IM, Preserv and ABX Free 6 MO-64 YRS (FLUCELVAX) Unknown Completed [facility] Pneumococcal 20 Conjugate, PCV20 (Prevnar 20) Unknown Completed [facility] Pneumococcal Polysaccharide, PPSV23 (PNEUMOVAX) Unknown Completed [facility] Influenza Virus Vaccine Quad .5 mL IM 6+ MO (FLUZONE/FLULAVAL/F LUARIX) Unknown Completed [facility] SARS-COV-2 COVID-19 MODERNA 12+ YRS VACCINE Unknown Completed [facility] SARS-COV-2 COVID-19 MODERNA 0.25ML BOOSTER VACCINE Unknown Completed [facility] Influenza Virus Vaccine Recomb Quad IM, Preserv and ABX Free 18-[address] [facility] Influenza Virus Vaccine Quad IM, Preserv and ABX Free 6 MO-64 YRS (FLUCELVAX) Unknown Completed [facility] Pneumococcal 20 Conjugate, PCV20 (Prevnar 20) Unknown Completed [facility] Pneumococcal Polysaccharide, PPSV23 (PNEUMOVAX) Unknown Completed [facility] Influenza Virus Vaccine Quad .5 mL IM 6+ MO (FLUZONE/FLULAVAL/F LUARIX) Unknown Completed [facility] SARS-COV-2 COVID-19 MODERNA 12+ YRS VACCINE Unknown Completed [facility] SARS-COV-2 COVID-19 MODERNA 0.25ML BOOSTER VACCINE Unknown Completed [facility] Influenza Virus Vaccine Recomb Quad IM, Preserv and ABX Free 18-[address] [facility] Influenza Virus Vaccine Quad IM, Preserv and ABX Free 6 MO-64 YRS (FLUCELVAX) Unknown Completed [facility] Pneumococcal 20 Conjugate, PCV20 (Prevnar 20) Unknown Completed [facility] Pneumococcal Polysaccharide, PPSV23 (PNEUMOVAX) Unknown Completed [facility] Influenza Virus Vaccine Quad .5 mL IM 6+ MO (FLUZONE/FLULAVAL/F LUARIX) Unknown Completed [facility] SARS-COV-2 COVID-19 MODERNA 12+ YRS VACCINE Unknown Completed [facility] SARS-COV-2 COVID-19 MODERNA 0.25ML BOOSTER VACCINE Unknown Completed [facility] Influenza Virus Vaccine Recomb Quad IM, Preserv and ABX Free 18-[address] [facility] Influenza Virus Vaccine Quad IM, Preserv and ABX Free 6 MO-64 YRS (FLUCELVAX) Unknown Completed [facility] Pneumococcal 20 Conjugate, PCV20 (Prevnar 20) Unknown Completed [facility] Pneumococcal Polysaccharide, PPSV23 (PNEUMOVAX) Unknown Completed [facility] Influenza Virus Vaccine Quad .5 mL IM 6+ MO (FLUZONE/FLULAVAL/F LUARIX) Unknown Completed [facility] SARS-COV-2 COVID-19 MODERNA 12+ YRS VACCINE Unknown Completed [facility] SARS-COV-2 COVID-19 MODERNA 0.25ML BOOSTER VACCINE Unknown Completed [facility] Influenza Virus Vaccine Recomb Quad IM, Preserv and ABX Free 18-[address] [facility] Influenza Virus Vaccine Quad IM, Preserv and ABX Free 6 MO-64 YRS (FLUCELVAX) Unknown Completed [facility] Pneumococcal 20 Conjugate, PCV20 (Prevnar 20) Unknown Completed [facility] Pneumococcal Polysaccharide, PPSV23 (PNEUMOVAX) Unknown Completed [facility] Influenza Virus Vaccine Quad .5 mL IM 6+ MO (FLUZONE/FLULAVAL/F LUARIX) Unknown Completed [facility] SARS-COV-2 COVID-19 MODERNA 12+ YRS VACCINE Unknown Completed [facility] SARS-COV-2 COVID-19 MODERNA 0.25ML BOOSTER VACCINE Unknown Completed [facility] Influenza Virus Vaccine Recomb Quad IM, Preserv and ABX Free 18-[address] [facility] Influenza Virus Vaccine Quad IM, Preserv and ABX Free 6 MO-64 YRS (FLUCELVAX) Unknown Completed [facility] Pneumococcal 20 Conjugate, PCV20 (Prevnar 20) Unknown Completed [facility] Pneumococcal Polysaccharide, PPSV23 (PNEUMOVAX) Unknown Completed [facility] Influenza Virus Vaccine Quad .5 mL IM 6+ MO (FLUZONE/FLULAVAL/F LUARIX) Unknown Completed [facility] SARS-COV-2 COVID-19 MODERNA 12+ YRS VACCINE Unknown Completed [facility] SARS-COV-2 COVID-19 MODERNA 0.25ML BOOSTER VACCINE Unknown Completed [facility] Influenza Virus Vaccine Recomb Quad IM, Preserv and ABX Free 18-[address] [facility] Influenza Virus Vaccine Quad IM, Preserv and ABX Free 6 MO-64 YRS (FLUCELVAX) Unknown Completed [facility] Pneumococcal 20 Conjugate, PCV20 (Prevnar 20) Unknown Completed [facility] Pneumococcal Polysaccharide, PPSV23 (PNEUMOVAX) Unknown Completed [facility] Influenza Virus Vaccine Quad .5 mL IM 6+ MO (FLUZONE/FLULAVAL/F LUARIX) Unknown Completed [facility] SARS-COV-2 COVID-19 MODERNA 12+ YRS VACCINE Unknown Completed [facility] SARS-COV-2 COVID-19 MODERNA 0.25ML BOOSTER VACCINE Unknown Completed [facility] Influenza Virus Vaccine Recomb Quad IM, Preserv and ABX Free 18-[address] [facility] Influenza Virus Vaccine Quad IM, Preserv and ABX Free 6 MO-64 YRS (FLUCELVAX) Unknown Completed [facility] Pneumococcal 20 Conjugate, PCV20 (Prevnar 20) Unknown Completed [facility] Pneumococcal Polysaccharide, PPSV23 (PNEUMOVAX) Unknown Completed [facility] Influenza Virus Vaccine Quad .5 mL IM 6+ MO (FLUZONE/FLULAVAL/F LUARIX) Unknown Completed [facility] SARS-COV-2 COVID-19 MODERNA 12+ YRS VACCINE Unknown Completed [facility] SARS-COV-2 COVID-19 MODERNA 0.25ML BOOSTER VACCINE Unknown Completed [facility] Influenza Virus Vaccine Recomb Quad IM, Preserv and ABX Free 18-[address] [facility] Influenza Virus Vaccine Quad IM, Preserv and ABX Free 6 MO-64 YRS (FLUCELVAX) Unknown Completed [facility] Pneumococcal 20 Conjugate, PCV20 (Prevnar 20) Unknown Completed [facility] Pneumococcal Polysaccharide, PPSV23 (PNEUMOVAX) Unknown Completed [facility] Influenza Virus Vaccine Quad .5 mL IM 6+ MO (FLUZONE/FLULAVAL/F LUARIX) Unknown Completed [facility] SARS-COV-2 COVID-19 MODERNA 0.25ML BOOSTER VACCINE Unknown Completed [facility] Influenza Virus Vaccine Recomb Quad IM, Preserv and ABX Free 18-[address] [facility] Influenza Virus Vaccine Quad IM, Preserv and ABX Free 6 MO-64 YRS (FLUCELVAX) Unknown Completed [facility] Pneumococcal 20 Conjugate, PCV20 (Prevnar 20) Unknown Completed [facility] Pneumococcal Polysaccharide, PPSV23 (PNEUMOVAX) Unknown Completed [facility] Influenza Virus Vaccine Quad .5 mL IM 6+ MO (FLUZONE/FLULAVAL/F LUARIX) Unknown Completed [facility] SARS-COV-2 COVID-19 MODERNA 12+ YRS VACCINE Unknown Completed [facility] SARS-COV-2 COVID-19 MODERNA 0.25ML BOOSTER VACCINE Unknown Completed [facility] Influenza Virus Vaccine Recomb Quad IM, Preserv and ABX Free 18-[address] [facility] Influenza Virus Vaccine Quad IM, Preserv and ABX Free 6 MO-64 YRS (FLUCELVAX) Unknown Completed [facility] Pneumococcal 20 Conjugate, PCV20 (Prevnar 20) Unknown Completed [facility] SARS-COV-2 COVID-19 MODERNA 12+ YRS VACCINE Unknown Completed [facility] Pneumococcal Polysaccharide, PPSV23 (PNEUMOVAX) Unknown Completed [facility] Influenza Virus Vaccine Quad .5 mL IM 6+ MO (FLUZONE/FLULAVAL/F LUARIX) Unknown Completed [facility] SARS-COV-2 COVID-19 MODERNA 12+ YRS VACCINE Unknown Completed [facility] SARS-COV-2 COVID-19 MODERNA 0.25ML BOOSTER VACCINE Unknown Completed [facility] Influenza Virus Vaccine Recomb Quad IM, Preserv and ABX Free 18-[address] [facility] Influenza Virus Vaccine Quad IM, Preserv and ABX Free 6 MO-64 YRS (FLUCELVAX) Unknown Completed [facility] Pneumococcal 20 Conjugate, PCV20 (Prevnar 20) Unknown Completed [facility] Pneumococcal Polysaccharide, PPSV23 (PNEUMOVAX) Unknown Completed [facility] Influenza Virus Vaccine Quad .5 mL IM 6+ MO (FLUZONE/FLULAVAL/F LUARIX) Unknown Completed [facility] SARS-COV-2 COVID-19 MODERNA 12+ YRS VACCINE Unknown Completed [facility] SARS-COV-2 COVID-19 MODERNA 0.25ML BOOSTER VACCINE Unknown Completed [facility] Influenza Virus Vaccine Recomb Quad IM, Preserv and ABX Free 18-[address] [facility] Influenza Virus Vaccine Quad IM, Preserv and ABX Free 6 MO-64 YRS (FLUCELVAX) Unknown Completed [facility] Pneumococcal 20 Conjugate, PCV20 (Prevnar 20) Unknown Completed [facility] Pneumococcal Polysaccharide, PPSV23 (PNEUMOVAX) Unknown Completed [facility] Influenza Virus Vaccine Quad .5 mL IM 6+ MO (FLUZONE/FLULAVAL/F LUARIX) Unknown Completed [facility] SARS-COV-2 COVID-19 MODERNA 12+ YRS VACCINE Unknown Completed [facility] SARS-COV-2 COVID-19 MODERNA 0.25ML BOOSTER VACCINE Unknown Completed [facility] Influenza Virus Vaccine Recomb Quad IM, Preserv and ABX Free 18-[address] [facility] Influenza Virus Vaccine Quad IM, Preserv and ABX Free 6 MO-64 YRS (FLUCELVAX) Unknown Completed [facility] Pneumococcal 20 Conjugate, PCV20 (Prevnar 20) Unknown Completed [facility] Pneumococcal Polysaccharide, PPSV23 (PNEUMOVAX) Unknown Completed [facility] Influenza Virus Vaccine Quad .5 mL IM 6+ MO (FLUZONE/FLULAVAL/F LUARIX) Unknown Completed [facility] SARS-COV-2 COVID-19 MODERNA 12+ YRS VACCINE Unknown Completed [facility] SARS-COV-2 COVID-19 MODERNA 0.25ML BOOSTER VACCINE Unknown Completed [facility] Influenza Virus Vaccine Recomb Quad IM, Preserv and ABX Free 18-[address] [facility] Influenza Virus Vaccine Quad IM, Preserv and ABX Free 6 MO-64 YRS (FLUCELVAX) Unknown Completed [facility] Pneumococcal 20 Conjugate, PCV20 (Prevnar 20) Unknown Completed [facility] Pneumococcal Polysaccharide, PPSV23 (PNEUMOVAX) Unknown Completed [facility] Influenza Virus Vaccine Quad .5 mL IM 6+ MO (FLUZONE/FLULAVAL/F LUARIX) Unknown Completed [facility] SARS-COV-2 COVID-19 MODERNA 12+ YRS VACCINE Unknown Completed [facility] SARS-COV-2 COVID-19 MODERNA 0.25ML BOOSTER VACCINE Unknown Completed [facility] Influenza Virus Vaccine Recomb Quad IM, Preserv and ABX Free 18-[address] [facility] Influenza Virus Vaccine Quad IM, Preserv and ABX Free 6 MO-64 YRS (FLUCELVAX) Unknown Completed [facility] Pneumococcal 20 Conjugate, PCV20 (Prevnar 20) Unknown Completed [facility] Pneumococcal Polysaccharide, PPSV23 (PNEUMOVAX) Unknown Completed [facility] Influenza Virus Vaccine Quad .5 mL IM 6+ MO (FLUZONE/FLULAVAL/F LUARIX) Unknown Completed [facility] SARS-COV-2 COVID-19 MODERNA 0.25ML BOOSTER VACCINE Unknown Completed [facility] Influenza Virus Vaccine Recomb Quad IM, Preserv and ABX Free 18-[address] [facility] Influenza Virus Vaccine Quad IM, Preserv and ABX Free 6 MO-64 YRS (FLUCELVAX) Unknown Completed [facility] Pneumococcal 20 Conjugate, PCV20 (Prevnar 20) Unknown Completed [facility] SARS-COV-2 COVID-19 MODERNA 12+ YRS VACCINE Unknown Completed [facility] Pneumococcal Polysaccharide, PPSV23 (PNEUMOVAX) Unknown Completed [facility] Influenza Virus Vaccine Quad .5 mL IM 6+ MO (FLUZONE/FLULAVAL/F LUARIX) Unknown Completed [facility] SARS-COV-2 COVID-19 MODERNA 12+ YRS VACCINE Unknown Completed [facility] SARS-COV-2 COVID-19 MODERNA 0.25ML BOOSTER VACCINE Unknown Completed [facility] Influenza Virus Vaccine Recomb Quad IM, Preserv and ABX Free 18-[address] [facility] Influenza Virus Vaccine Quad IM, Preserv and ABX Free 6 MO-64 YRS (FLUCELVAX) Unknown Completed [facility] Pneumococcal 20 Conjugate, PCV20 (Prevnar 20) Unknown Completed [facility] Pneumococcal Polysaccharide, PPSV23 (PNEUMOVAX) Unknown Completed [facility] Influenza Virus Vaccine Quad .5 mL IM 6+ MO (FLUZONE/FLULAVAL/F LUARIX) Unknown Completed [facility] SARS-COV-2 COVID-19 MODERNA 12+ YRS VACCINE Unknown Completed [facility] SARS-COV-2 COVID-19 MODERNA 0.25ML BOOSTER VACCINE Unknown Completed [facility] Influenza Virus Vaccine Recomb Quad IM, Preserv and ABX Free 18-[address] [facility] Influenza Virus Vaccine Quad IM, Preserv and ABX Free 6 MO-64 YRS (FLUCELVAX) Unknown Completed [facility] Pneumococcal 20 Conjugate, PCV20 (Prevnar 20) Unknown Completed [facility] Pneumococcal Polysaccharide, PPSV23 (PNEUMOVAX) Unknown Completed [facility] Influenza Virus Vaccine Quad .5 mL IM 6+ MO (FLUZONE/FLULAVAL/F LUARIX) Unknown Completed [facility] SARS-COV-2 COVID-19 MODERNA 12+ YRS VACCINE Unknown Completed [facility] SARS-COV-2 COVID-19 MODERNA 0.25ML BOOSTER VACCINE Unknown Completed [facility] Influenza Virus Vaccine Recomb Quad IM, Preserv and ABX Free 18-[address] [facility] Influenza Virus Vaccine Quad IM, Preserv and ABX Free 6 MO-64 YRS (FLUCELVAX) Unknown Completed [facility] Pneumococcal 20 Conjugate, PCV20 (Prevnar 20) Unknown Completed [facility] Pneumococcal Polysaccharide, PPSV23 (PNEUMOVAX) Unknown Completed [facility] Influenza Virus Vaccine Quad .5 mL IM 6+ MO (FLUZONE/FLULAVAL/F LUARIX) Unknown Completed [facility] SARS-COV-2 COVID-19 MODERNA 12+ YRS VACCINE Unknown Completed [facility] SARS-COV-2 COVID-19 MODERNA 0.25ML BOOSTER VACCINE Unknown Completed [facility] Influenza Virus Vaccine Recomb Quad IM, Preserv and ABX Free 18-[address] [facility] Influenza Virus Vaccine Quad IM, Preserv and ABX Free 6 MO-64 YRS (FLUCELVAX) Unknown Completed [facility] Pneumococcal 20 Conjugate, PCV20 (Prevnar 20) Unknown Completed [facility] Pneumococcal Polysaccharide, PPSV23 (PNEUMOVAX) Unknown Completed [facility] Influenza Virus Vaccine Quad .5 mL IM 6+ MO (FLUZONE/FLULAVAL/F LUARIX) Unknown Completed [facility] SARS-COV-2 COVID-19 MODERNA 12+ YRS VACCINE Unknown Completed [facility] SARS-COV-2 COVID-19 MODERNA 0.25ML BOOSTER VACCINE Unknown Completed [facility] Influenza Virus Vaccine Recomb Quad IM, Preserv and ABX Free 18-[address] [facility] Influenza Virus Vaccine Quad IM, Preserv and ABX Free 6 MO-64 YRS (FLUCELVAX) Unknown Completed [facility] Pneumococcal 20 Conjugate, PCV20 (Prevnar 20) Unknown Completed [facility] Pneumococcal Polysaccharide, PPSV23 (PNEUMOVAX) Unknown Completed [facility] Influenza Virus Vaccine Quad .5 mL IM 6+ MO (FLUZONE/FLULAVAL/F LUARIX) Unknown Completed [facility] SARS-COV-2 COVID-19 MODERNA 12+ YRS VACCINE Unknown Completed [facility] SARS-COV-2 COVID-19 MODERNA 0.25ML BOOSTER VACCINE Unknown Completed [facility] Influenza Virus Vaccine Recomb Quad IM, Preserv and ABX Free 18-[address] [facility] Influenza Virus Vaccine Quad IM, Preserv and ABX Free 6 MO-64 YRS (FLUCELVAX) Unknown Completed [facility] Pneumococcal 20 Conjugate, PCV20 (Prevnar 20) Unknown Completed [facility] Pneumococcal Polysaccharide, PPSV23 (PNEUMOVAX) Unknown Completed [facility] Influenza Virus Vaccine Quad .5 mL IM 6+ MO (FLUZONE/FLULAVAL/F LUARIX) Unknown Completed [facility] SARS-COV-2 COVID-19 MODERNA 12+ YRS VACCINE Unknown Completed [facility] SARS-COV-2 COVID-19 MODERNA 0.25ML BOOSTER VACCINE Unknown Completed [facility] Influenza Virus Vaccine Recomb Quad IM, Preserv and ABX Free 18-64 [address] [facility] Influenza Virus Vaccine Quad IM, Preserv and ABX Free 6 MO-64 YRS (FLUCELVAX) Unknown Completed [facility] Pneumococcal 20 Conjugate, PCV20 (Prevnar 20) Unknown Completed [facility] Pneumococcal Polysaccharide, PPSV23 (PNEUMOVAX) Unknown Completed [facility] Influenza Virus Vaccine Quad .5 mL IM 6+ MO (FLUZONE/FLULAVAL/F LUARIX) Unknown Completed [facility] SARS-COV-2 COVID-19 MODERNA 12+ YRS VACCINE Unknown Completed [facility] SARS-COV-2 COVID-19 MODERNA 0.25ML BOOSTER VACCINE Unknown Completed [facility] Influenza Virus Vaccine Recomb Quad IM, Preserv and ABX Free 18-64 Y[address] [facility] Influenza Virus Vaccine Quad IM, Preserv and ABX Free 6 MO-64 YRS (FLUCELVAX) Unknown Completed [facility] Pneumococcal 20 Conjugate, PCV20 (Prevnar 20) Unknown Completed [facility] Pneumococcal Polysaccharide, PPSV23 (PNEUMOVAX) Unknown Completed [facility] Influenza Virus Vaccine Quad .5 mL IM 6+ MO (FLUZONE/FLULAVAL/F LUARIX) Unknown Completed [facility] SARS-COV-2 COVID-19 MODERNA 12+ YRS VACCINE Unknown Completed [facility] SARS-COV-2 COVID-19 MODERNA 0.25ML BOOSTER VACCINE Unknown Completed [facility] Influenza Virus Vaccine Recomb Quad IM, Preserv and ABX Free 18-64 Y[address] [facility] Influenza Virus Vaccine Quad IM, Preserv and ABX Free 6 MO-64 YRS (FLUCELVAX) Unknown Completed [facility] Pneumococcal 20 Conjugate, PCV20 (Prevnar 20) Unknown Completed [facility] Pneumococcal Polysaccharide, PPSV23 (PNEUMOVAX) Unknown Completed [facility] Influenza Virus Vaccine Quad .5 mL IM 6+ MO (FLUZONE/FLULAVAL/F LUARIX) Unknown Completed [facility] SARS-COV-2 COVID-19 MODERNA 0.25ML BOOSTER VACCINE Unknown Completed [facility] Influenza Virus Vaccine Recomb Quad IM, Preserv and ABX Free 18-[address] [facility] Influenza Virus Vaccine Quad IM, Preserv and ABX Free 6 MO-64 YRS (FLUCELVAX) Unknown Completed [facility] Pneumococcal 20 Conjugate, PCV20 (Prevnar 20) Unknown Completed [facility] SARS-COV-2 COVID-19 MODERNA 12+ YRS VACCINE Unknown Completed [facility] Pneumococcal Polysaccharide, PPSV23 (PNEUMOVAX) Unknown Completed [facility] Influenza Virus Vaccine Quad .5 mL IM 6+ MO (FLUZONE/FLULAVAL/F LUARIX) Unknown Completed [facility] SARS-COV-2 COVID-19 MODERNA 0.25ML BOOSTER VACCINE Unknown Completed [facility] Influenza Virus Vaccine Recomb Quad IM, Preserv and ABX Free 18-[address] [facility] Influenza Virus Vaccine Quad IM, Preserv and ABX Free 6 MO-64 YRS (FLUCELVAX) Unknown Completed [facility] Pneumococcal 20 Conjugate, PCV20 (Prevnar 20) Unknown Completed [facility] Pneumococcal Polysaccharide, PPSV23 (PNEUMOVAX) Unknown Completed [facility] Influenza Virus Vaccine Quad .5 mL IM 6+ MO (FLUZONE/FLULAVAL/F LUARIX) Unknown Completed [facility] SARS-COV-2 COVID-19 MODERNA 12+ YRS VACCINE Unknown Completed [facility] SARS-COV-2 COVID-19 MODERNA 0.25ML BOOSTER VACCINE Unknown Completed [facility] Influenza Virus Vaccine Recomb Quad IM, Preserv and ABX Free 18-[address] [facility] Influenza Virus Vaccine Quad IM, Preserv and ABX Free 6 MO-64 YRS (FLUCELVAX) Unknown Completed [facility] Pneumococcal 20 Conjugate, PCV20 (Prevnar 20) Unknown Completed [facility] SARS-COV-2 COVID-19 MODERNA 12+ YRS VACCINE Unknown Completed [facility] Pneumococcal Polysaccharide, PPSV23 (PNEUMOVAX) Unknown Completed [facility] Influenza Virus Vaccine Quad .5 mL IM 6+ MO (FLUZONE/FLULAVAL/F LUARIX) Unknown Completed [facility] SARS-COV-2 COVID-19 MODERNA 12+ YRS VACCINE Unknown Completed [facility] SARS-COV-2 COVID-19 MODERNA 0.25ML BOOSTER VACCINE Unknown Completed [facility] Influenza Virus Vaccine Recomb Quad IM, Preserv and ABX Free 18-[address] [facility] Influenza Virus Vaccine Quad IM, Preserv and ABX Free 6 MO-64 YRS (FLUCELVAX) Unknown Completed [facility] Pneumococcal 20 Conjugate, PCV20 (Prevnar 20) Unknown Completed [facility] Pneumococcal Polysaccharide, PPSV23 (PNEUMOVAX) Unknown Completed [facility] Influenza Virus Vaccine Quad .5 mL IM 6+ MO (FLUZONE/FLULAVAL/F LUARIX) Unknown Completed [facility] SARS-COV-2 COVID-19 MODERNA 12+ YRS VACCINE Unknown Completed [facility] SARS-COV-2 COVID-19 MODERNA 0.25ML BOOSTER VACCINE Unknown Completed [facility] Influenza Virus Vaccine Recomb Quad IM, Preserv and ABX Free 18-[address] [facility] Influenza Virus Vaccine Quad IM, Preserv and ABX Free 6 MO-64 YRS (FLUCELVAX) Unknown Completed [facility] Pneumococcal 20 Conjugate, PCV20 (Prevnar 20) Unknown Completed [facility] Pneumococcal Polysaccharide, PPSV23 (PNEUMOVAX) Unknown Completed [facility] Influenza Virus Vaccine Quad .5 mL IM 6+ MO (FLUZONE/FLULAVAL/F LUARIX) Unknown Completed [facility] SARS-COV-2 COVID-19 MODERNA 12+ YRS VACCINE Unknown Completed [facility] SARS-COV-2 COVID-19 MODERNA 0.25ML BOOSTER VACCINE Unknown Completed [facility] Influenza Virus Vaccine Recomb Quad IM, Preserv and ABX Free 18-[address] [facility] Influenza Virus Vaccine Quad IM, Preserv and ABX Free 6 MO-64 YRS (FLUCELVAX) Unknown Completed [facility] Pneumococcal 20 Conjugate, PCV20 (Prevnar 20) Unknown Completed [facility] Pneumococcal Polysaccharide, PPSV23 (PNEUMOVAX) Unknown Completed [facility] Influenza Virus Vaccine Quad .5 mL IM 6+ MO (FLUZONE/FLULAVAL/F LUARIX) Unknown Completed [facility] SARS-COV-2 COVID-19 MODERNA 12+ YRS VACCINE Unknown Completed [facility] SARS-COV-2 COVID-19 MODERNA 0.25ML BOOSTER VACCINE Unknown Completed [facility] Influenza Virus Vaccine Recomb Quad IM, Preserv and ABX Free 18-[address] [facility] Influenza Virus Vaccine Quad IM, Preserv and ABX Free 6 MO-64 YRS (FLUCELVAX) Unknown Completed [facility] Pneumococcal 20 Conjugate, PCV20 (Prevnar 20) Unknown Completed [facility] Pneumococcal Polysaccharide, PPSV23 (PNEUMOVAX) Unknown Completed [facility] Influenza Virus Vaccine Quad .5 mL IM 6+ MO (FLUZONE/FLULAVAL/F LUARIX) Unknown Completed [facility] SARS-COV-2 COVID-19 MODERNA 12+ YRS VACCINE Unknown Completed [facility] SARS-COV-2 COVID-19 MODERNA 0.25ML BOOSTER VACCINE Unknown Completed [facility] Influenza Virus Vaccine Recomb Quad IM, Preserv and ABX Free 18-[address] [facility] Influenza Virus Vaccine Quad IM, Preserv and ABX Free 6 MO-64 YRS (FLUCELVAX) Unknown Completed [facility] Pneumococcal 20 Conjugate, PCV20 (Prevnar 20) Unknown Completed [facility] Pneumococcal Polysaccharide, PPSV23 (PNEUMOVAX) Unknown Completed [facility] Influenza Virus Vaccine Quad .5 mL IM 6+ MO (FLUZONE/FLULAVAL/F LUARIX) Unknown Completed [facility] SARS-COV-2 COVID-19 MODERNA 12+ YRS VACCINE Unknown Completed [facility] SARS-COV-2 COVID-19 MODERNA 0.25ML BOOSTER VACCINE Unknown Completed [facility] Influenza Virus Vaccine Recomb Quad IM, Preserv and ABX Free 18-[address] [facility] Influenza Virus Vaccine Quad IM, Preserv and ABX Free 6 MO-64 YRS (FLUCELVAX) Unknown Completed [facility] Pneumococcal 20 Conjugate, PCV20 (Prevnar 20) Unknown Completed [facility] Pneumococcal Polysaccharide, PPSV23 (PNEUMOVAX) Unknown Completed [facility] Influenza Virus Vaccine Quad .5 mL IM 6+ MO (FLUZONE/FLULAVAL/F LUARIX) Unknown Completed [facility] SARS-COV-2 COVID-19 MODERNA 12+ YRS VACCINE Unknown Completed [facility] SARS-COV-2 COVID-19 MODERNA 0.25ML BOOSTER VACCINE Unknown Completed [facility] Influenza Virus Vaccine Recomb Quad IM, Preserv and ABX Free 18-[address] [facility] Influenza Virus Vaccine Quad IM, Preserv and ABX Free 6 MO-64 YRS (FLUCELVAX) Unknown Completed [facility] Pneumococcal 20 Conjugate, PCV20 (Prevnar 20) Unknown Completed [facility] Pneumococcal Polysaccharide, PPSV23 (PNEUMOVAX) Unknown Completed [facility] Influenza Virus Vaccine Quad .5 mL IM 6+ MO (FLUZONE/FLULAVAL/F LUARIX) Unknown Completed [facility] SARS-COV-2 COVID-19 MODERNA 12+ YRS VACCINE Unknown Completed [facility] SARS-COV-2 COVID-19 MODERNA 0.25ML BOOSTER VACCINE Unknown Completed [facility] Influenza Virus Vaccine Recomb Quad IM, Preserv and ABX Free 18-[address] [facility] Influenza Virus Vaccine Quad IM, Preserv and ABX Free 6 MO-64 YRS (FLUCELVAX) Unknown Completed [facility] Pneumococcal 20 Conjugate, PCV20 (Prevnar 20) Unknown Completed [facility] Pneumococcal Polysaccharide, PPSV23 (PNEUMOVAX) Unknown Completed [facility] Influenza Virus Vaccine Quad .5 mL IM 6+ MO (FLUZONE/FLULAVAL/F LUARIX) Unknown Completed [facility] SARS-COV-2 COVID-19 MODERNA 12+ YRS VACCINE Unknown Completed [facility] SARS-COV-2 COVID-19 MODERNA 0.25ML BOOSTER VACCINE Unknown Completed [facility] Influenza Virus Vaccine Recomb Quad IM, Preserv and ABX Free 18-[address] [facility] Influenza Virus Vaccine Quad IM, Preserv and ABX Free 6 MO-64 YRS (FLUCELVAX) Unknown Completed [facility] Pneumococcal 20 Conjugate, PCV20 (Prevnar 20) Unknown Completed [facility] Pneumococcal Polysaccharide, PPSV23 (PNEUMOVAX) Unknown Completed [facility] Influenza Virus Vaccine Quad .5 mL IM 6+ MO (FLUZONE/FLULAVAL/F LUARIX) Unknown Completed [facility] SARS-COV-2 COVID-19 MODERNA 12+ YRS VACCINE Unknown Completed [facility] SARS-COV-2 COVID-19 MODERNA 0.25ML BOOSTER VACCINE Unknown Completed [facility] Influenza Virus Vaccine Recomb Quad IM, Preserv and ABX Free 18-[address] [facility] Influenza Virus Vaccine Quad IM, Preserv and ABX Free 6 MO-64 YRS (FLUCELVAX) Unknown Completed [facility] Pneumococcal 20 Conjugate, PCV20 (Prevnar 20) Unknown Completed [facility] Pneumococcal Polysaccharide, PPSV23 (PNEUMOVAX) Unknown Completed [facility] Influenza Virus Vaccine Quad .5 mL IM 6+ MO (FLUZONE/FLULAVAL/F LUARIX) Unknown Completed [facility] SARS-COV-2 COVID-19 MODERNA 12+ YRS VACCINE Unknown Completed [facility] SARS-COV-2 COVID-19 MODERNA 0.25ML BOOSTER VACCINE Unknown Completed [facility] Influenza Virus Vaccine Recomb Quad IM, Preserv and ABX Free 18-[address] [facility] Influenza Virus Vaccine Quad IM, Preserv and ABX Free 6 MO-64 YRS (FLUCELVAX) Unknown Completed [facility] Pneumococcal 20 Conjugate, PCV20 (Prevnar 20) Unknown Completed [facility] Pneumococcal Polysaccharide, PPSV23 (PNEUMOVAX) Unknown Completed [facility] Influenza Virus Vaccine Quad .5 mL IM 6+ MO (FLUZONE/FLULAVAL/F LUARIX) Unknown Completed [facility] SARS-COV-2 COVID-19 MODERNA 12+ YRS VACCINE Unknown Completed [facility] SARS-COV-2 COVID-19 MODERNA 0.25ML BOOSTER VACCINE Unknown Completed [facility] Influenza Virus Vaccine Recomb Quad IM, Preserv and ABX Free 18-[address] [facility] Influenza Virus Vaccine Quad IM, Preserv and ABX Free 6 MO-64 YRS (FLUCELVAX) Unknown Completed [facility] Pneumococcal 20 Conjugate, PCV20 (Prevnar 20) Unknown Completed [facility] Pneumococcal Polysaccharide, PPSV23 (PNEUMOVAX) Unknown Completed [facility] Influenza Virus Vaccine Quad .5 mL IM 6+ MO (FLUZONE/FLULAVAL/F LUARIX) Unknown Completed [facility] SARS-COV-2 COVID-19 MODERNA 12+ YRS VACCINE Unknown Completed [facility] SARS-COV-2 COVID-19 MODERNA 0.25ML BOOSTER VACCINE Unknown Completed [facility] Influenza Virus Vaccine Recomb Quad IM, Preserv and ABX Free 18-[address] [facility] Influenza Virus Vaccine Quad IM, Preserv and ABX Free 6 MO-64 YRS (FLUCELVAX) Unknown Completed [facility] Pneumococcal 20 Conjugate, PCV20 (Prevnar 20) Unknown Completed [facility] Pneumococcal Polysaccharide, PPSV23 (PNEUMOVAX) Unknown Completed [facility] Influenza Virus Vaccine Quad .5 mL IM 6+ MO (FLUZONE/FLULAVAL/F LUARIX) Unknown Completed [facility] SARS-COV-2 COVID-19 MODERNA 12+ YRS VACCINE Unknown Completed [facility] SARS-COV-2 COVID-19 MODERNA 0.25ML BOOSTER VACCINE Unknown Completed [facility] Influenza Virus Vaccine Recomb Quad IM, Preserv and ABX Free 18-[address] [facility] Influenza Virus Vaccine Quad IM, Preserv and ABX Free 6 MO-64 YRS (FLUCELVAX) Unknown Completed [facility] Pneumococcal 20 Conjugate, PCV20 (Prevnar 20) Unknown Completed [facility] Pneumococcal Polysaccharide, PPSV23 (PNEUMOVAX) Unknown Completed [facility] Influenza Virus Vaccine Quad .5 mL IM 6+ MO (FLUZONE/FLULAVAL/F LUARIX) Unknown Completed [facility] SARS-COV-2 COVID-19 MODERNA 12+ YRS VACCINE Unknown Completed [facility] SARS-COV-2 COVID-19 MODERNA 0.25ML BOOSTER VACCINE Unknown Completed [facility] Influenza Virus Vaccine Recomb Quad IM, Preserv and ABX Free 18-[address] [facility] Influenza Virus Vaccine Quad IM, Preserv and ABX Free 6 MO-64 YRS (FLUCELVAX) Unknown Completed [facility] Pneumococcal 20 Conjugate, PCV20 (Prevnar 20) Unknown Completed [facility] Pneumococcal Polysaccharide, PPSV23 (PNEUMOVAX) Unknown Completed [facility] Influenza Virus Vaccine Quad .5 mL IM 6+ MO (FLUZONE/FLULAVAL/F LUARIX) Unknown Completed [facility] SARS-COV-2 COVID-19 MODERNA 12+ YRS VACCINE Unknown Completed [facility] SARS-COV-2 COVID-19 MODERNA 0.25ML BOOSTER VACCINE Unknown Completed [facility] Influenza Virus Vaccine Recomb Quad IM, Preserv and ABX Free 18-[address] [facility] Influenza Virus Vaccine Quad IM, Preserv and ABX Free 6 MO-64 YRS (FLUCELVAX) Unknown Completed [facility] Pneumococcal 20 Conjugate, PCV20 (Prevnar 20) Unknown Completed [facility] Pneumococcal Polysaccharide, PPSV23 (PNEUMOVAX) Unknown Completed [facility] Influenza Virus Vaccine Quad .5 mL IM 6+ MO (FLUZONE/FLULAVAL/F LUARIX) Unknown Completed [facility] SARS-COV-2 COVID-19 MODERNA 12+ YRS VACCINE Unknown Completed [facility] SARS-COV-2 COVID-19 MODERNA 0.25ML BOOSTER VACCINE Unknown Completed [facility] Influenza Virus Vaccine Recomb Quad IM, Preserv and ABX Free 18-[address] [facility] Influenza Virus Vaccine Quad IM, Preserv and ABX Free 6 MO-64 YRS (FLUCELVAX) Unknown Completed [facility] Pneumococcal 20 Conjugate, PCV20 (Prevnar 20) Unknown Completed [facility] Vital Signs Vital Name Observation Time Observation Value Comments Jose quintero Systolic blood pressure 2024-12-21 17:38:00 143 mm[Hg] [facility] Diastolic blood pressure 2024-12-21 17:38:00 81 mm[Hg] [facility] Heart rate 2024-12-21 17:38:00 83 /min [facility] Body temperature 2024-12-21 17:38:[address] [facility] Respiratory rate 2024-12-21 17:38:00 16 /min [facility] Body height 2024-12-21 17:38:00 165.1 cm [facility] Body weight 2024-12-21 17:38:00 110.224 kg [facility] BMI 2024-12-21 17:38:00 40.44 kg/m2 [facility] Oxygen saturation in Arterial blood by Pulse oximetry 2024-12-21 17:38:00 94 /min [facility] Systolic blood pressure 2024-07-19 19:19:00 166 mm[Hg] [facility] Diastolic blood pressure 2024-07-19 19:19:00 81 mm[Hg] [facility] Heart rate 2024-07-19 19:18:00 84 /min [facility] Body temperature 2024-07-19 19:18:[address] [facility] Respiratory rate 2024-07-19 19:18:00 16 /min [facility] Body height 2024-07-19 19:18:00 165.1 cm [facility] Body weight 2024-07-19 19:18:00 110.224 kg [facility] BMI 2024-07-19 19:18:00 40.44 kg/m2 [facility] Oxygen saturation in Arterial blood by Pulse oximetry 2024-07-19 19:18:00 95 /min [facility] Systolic blood pressure 2024-06-29 15:38:00 147 mm[Hg] [facility] Diastolic blood pressure 2024-06-29 15:38:00 80 mm[Hg] [facility] Heart rate 2024-06-29 15:38:00 80 /min [facility] Oxygen saturation in Arterial blood by Pulse oximetry 2024-06-29 15:38:00 93 /min [facility] Respiratory rate 2024-06-29 15:36:00 16 /min [facility] Body height 2024-06-29 15:36:00 165.1 cm [facility] Body weight 2024-06-29 15:36:00 109.317 kg [facility] BMI 2024-06-29 15:36:00 40.10 kg/m2 [facility] Systolic blood pressure 2024-03-09 15:19:00 147 mm[Hg] [facility] Diastolic blood pressure 2024-03-09 15:19:00 77 mm[Hg] [facility] Heart rate 2024-03-09 15:18:00 87 /min [facility] Body temperature 2024-03-09 15:18:[address] [facility] Respiratory rate 2024-03-09 15:18:00 20 /min [facility] Body height 2024-03-09 15:18:00 165.1 cm [facility] Body weight 2024-03-09 15:18:00 109.77 kg [facility] BMI 2024-03-09 15:18:00 40.27 kg/m2 [facility] Oxygen saturation in Arterial blood by Pulse oximetry 2024-03-09 15:18:00 93 /min [facility] Systolic blood pressure 2023-12-25 20:22:00 139 mm[Hg] [facility] Diastolic blood pressure 2023-12-25 20:22:00 72 mm[Hg] [facility] Heart rate 2023-12-25 20:22:00 83 /min [facility] Body height 2023-12-25 20:22:00 165.1 cm [facility] Body weight 2023-12-25 20:22:00 109.77 kg [facility] BMI 2023-12-25 20:22:00 40.27 kg/m2 [facility] Oxygen saturation in Arterial blood by Pulse oximetry 2023-12-25 20:22:00 96 /min [facility] Systolic blood pressure 2023-12-02 13:07:00 130 mm[Hg] [facility] Diastolic blood pressure 2023-12-02 13:07:00 74 mm[Hg] [facility] Heart rate 2023-12-02 13:07:00 84 /min [facility] Body height 2023-12-02 13:07:00 165.1 cm [facility] Body weight 2023-12-02 13:07:00 105.235 kg [facility] BMI 2023-12-02 13:07:00 38.61 kg/m2 [facility] Oxygen saturation in Arterial blood by Pulse oximetry 2023-12-02 13:07:00 96 /min [facility] Systolic blood pressure 2023-11-09 18:56:00 134 mm[Hg] [facility] Diastolic blood pressure 2023-11-09 18:56:00 67 mm[Hg] [facility] Heart rate 2023-11-09 18:56:00 83 /min [facility] Oxygen saturation in Arterial blood by Pulse oximetry 2023-11-09 18:56:00 96 /min [facility] Systolic blood pressure 2023-10-14 17:54:00 127 mm[Hg] [facility] Diastolic blood pressure 2023-10-14 17:54:00 64 mm[Hg] [facility] Heart rate 2023-10-14 17:54:00 82 /min [facility] Oxygen saturation in Arterial blood by Pulse oximetry 2023-10-14 17:54:00 95 /min [facility] Systolic blood pressure 2023-07-28 20:40:00 132 mm[Hg] [facility] Diastolic blood pressure 2023-07-28 20:40:00 82 mm[Hg] [facility] Heart rate 2023-07-28 20:40:00 89 /min [facility] Body temperature 2023-07-28 20:40:[address] [facility] Respiratory rate 2023-07-28 20:40:00 24 /min [facility] Body height 2023-07-28 20:40:00 165.1 cm [facility] Body weight 2023-07-28 20:40:00 102.059 kg [facility] BMI 2023-07-28 20:40:00 37.44 kg/m2 [facility] Oxygen saturation in Arterial blood by Pulse oximetry 2023-07-28 20:40:00 95 /min [facility] Systolic blood pressure 2023-07-10 17:37:00 95 mm[Hg] [facility] Diastolic blood pressure 2023-07-10 17:37:00 63 mm[Hg] [facility] Body height 2023-07-10 17:37:00 165.1 cm [facility] Body weight 2023-07-10 17:37:00 102.059 kg [facility] BMI 2023-07-10 17:37:00 37.44 kg/m2 [facility] Systolic blood pressure 2023-07-09 14:58:00 100 mm[Hg] [facility] Diastolic blood pressure 2023-07-09 14:58:00 64 mm[Hg] [facility] Heart rate 2023-07-09 14:58:00 76 /min [facility] Body height 2023-07-09 14:58:00 165.1 cm [facility] Body weight 2023-07-09 14:58:00 102.105 kg [facility] BMI 2023-07-09 14:58:00 37.46 kg/m2 [facility] Oxygen saturation in Arterial blood by Pulse oximetry 2023-07-09 14:58:00 96 /min [facility] Systolic blood pressure 2023-07-01 21:09:00 128 mm[Hg] [facility] Diastolic blood pressure 2023-07-01 21:09:00 70 mm[Hg] [facility] Heart rate 2023-07-01 21:09:00 82 /min [facility] Body height 2023-07-01 21:09:00 165.1 cm [facility] Body weight 2023-07-01 21:09:00 98.884 kg [facility] BMI 2023-07-01 21:09:00 36.28 kg/m2 [facility] Oxygen saturation in Arterial blood by Pulse oximetry 2023-07-01 21:09:00 97 /min [facility] Systolic blood pressure 2023-05-11 18:40:00 149 mm[Hg] [facility] Diastolic blood pressure 2023-05-11 18:40:00 80 mm[Hg] [facility] Heart rate 2023-05-11 18:39:00 89 /min [facility] Respiratory rate 2023-05-11 18:39:00 18 /min [facility] Body height 2023-05-11 18:39:00 165.1 cm [facility] Body weight 2023-05-11 18:39:00 98.431 kg [facility] BMI 2023-05-11 18:39:00 36.11 kg/m2 [facility] Oxygen saturation in Arterial blood by Pulse oximetry 2023-05-11 18:39:00 97 /min [facility] Systolic blood pressure 2023-04-08 14:27:00 156 mm[Hg] [facility] Diastolic blood pressure 2023-04-08 14:27:00 84 mm[Hg] [facility] Heart rate 2023-04-08 14:26:00 88 /min [facility] Respiratory rate 2023-04-08 14:26:00 18 /min [facility] Body height 2023-04-08 14:26:00 165.1 cm [facility] Body weight 2023-04-08 14:26:00 98.975 kg [facility] BMI 2023-04-08 14:26:00 36.31 kg/m2 [facility] Oxygen saturation in Arterial blood by Pulse oximetry 2023-04-08 14:26:00 96 /min [facility] Systolic blood pressure 2023-03-26 17:55:00 164 mm[Hg] [facility] Diastolic blood pressure 2023-03-26 17:55:00 84 mm[Hg] [facility] Heart rate 2023-03-26 17:54:00 81 /min [facility] Respiratory rate 2023-03-26 17:54:00 18 /min [facility] Body height 2023-03-26 17:54:00 165.1 cm [facility] Body weight 2023-03-26 17:54:00 99.338 kg [facility] BMI 2023-03-26 17:54:00 36.44 kg/m2 [facility] Oxygen saturation in Arterial blood by Pulse oximetry 2023-03-26 17:54:00 97 /min [facility] Systolic blood pressure 2023-02-11 14:37:00 164 mm[Hg] [facility] Diastolic blood pressure 2023-02-11 14:37:00 85 mm[Hg] [facility] Heart rate 2023-02-11 14:36:00 99 /min [facility] Body height 2023-02-11 14:36:00 165.1 cm [facility] Body weight 2023-02-11 14:36:00 99.565 kg [facility] BMI 2023-02-11 14:36:00 36.53 kg/m2 [facility] Oxygen saturation in Arterial blood by Pulse oximetry 2023-02-11 14:36:00 97 /min [facility] Systolic blood pressure 2023-01-24 18:00:00 137 mm[Hg] [facility] Diastolic blood pressure 2023-01-24 18:00:00 89 mm[Hg] [facility] Heart rate 2023-01-24 18:00:00 87 /min [facility] Body temperature 2023-01-24 18:00:[address] [facility] Respiratory rate 2023-01-24 18:00:00 18 /min [facility] Body height 2023-01-24 18:00:00 165.1 cm [facility] Body weight 2023-01-24 18:00:00 97.523 kg [facility] BMI 2023-01-24 18:00:00 35.78 kg/m2 [facility] Oxygen saturation in Arterial blood by Pulse oximetry 2023-01-24 18:00:00 95 /min [facility] Systolic blood pressure 2022-12-22 15:24:00 158 mm[Hg] [facility] Diastolic blood pressure 2022-12-22 15:24:00 85 mm[Hg] [facility] Heart rate 2022-12-22 15:23:00 74 /min [facility] Body temperature 2022-12-22 15:23:[address] [facility] Respiratory rate 2022-12-22 15:23:00 18 /min [facility] Body height 2022-12-22 15:23:00 167.6 cm [facility] Body weight 2022-12-22 15:23:00 100.154 kg [facility] BMI 2022-12-22 15:23:00 35.64 kg/m2 [facility] Oxygen saturation in Arterial blood by Pulse oximetry 2022-12-22 15:23:00 95 /min [facility] Systolic blood pressure 2022-11-27 14:48:00 118 mm[Hg] [facility] Diastolic blood pressure 2022-11-27 14:48:00 76 mm[Hg] [facility] Heart rate 2022-11-27 14:48:00 94 /min [facility] Body temperature 2022-11-27 14:48:[address] [facility] Body height 2022-11-27 14:48:00 165.1 cm [facility] Body weight 2022-11-27 14:48:00 100.245 kg [facility] BMI 2022-11-27 14:48:00 36.78 kg/m2 [facility] Oxygen saturation in Arterial blood by Pulse oximetry 2022-11-27 14:48:00 94 /min [facility] Systolic blood pressure 2022-11-12 14:18:00 100 mm[Hg] [facility] Diastolic blood pressure 2022-11-12 14:18:00 69 mm[Hg] [facility] Heart rate 2022-11-12 14:18:00 108 /min [facility] 2022-11-12 14:18:00 165.1 cm [facility] Body weight 2022-11-12 14:18:00 99.338 kg [facility] BMI 2022-11-12 14:18:00 36.44 kg/m2 [facility] Oxygen saturation in Arterial blood by Pulse oximetry 2022-11-12 14:18:00 96 /min [facility] Systolic blood pressure 2022-10-30 16:15:00 111 mm[Hg] [facility] Diastolic blood pressure 2022-10-30 16:15:00 75 mm[Hg] [facility] Body temperature 2022-10-30 16:15:[address] [facility] Respiratory rate 2022-10-30 16:15:00 16 /min [facility] Body height 2022-10-30 16:15:00 165.1 cm [facility] Body weight 2022-10-30 16:15:00 97.977 kg [facility] BMI 2022-10-30 16:15:00 35.94 kg/m2 [facility] Oxygen saturation in Arterial blood by Pulse oximetry 2022-10-30 16:15:00 97 /min [facility] Systolic blood pressure 2022-09-10 14:46:00 122 mm[Hg] [facility] Diastolic blood pressure 2022-09-10 14:46:00 70 mm[Hg] [facility] Heart rate 2022-09-10 14:46:00 107 /min [facility] Body height 2022-09-10 14:46:00 165.1 cm [facility] Body weight 2022-09-10 14:46:00 106.142 kg [facility] BMI 2022-09-10 14:46:00 38.94 kg/m2 [facility] Oxygen saturation in Arterial blood by Pulse oximetry 2022-09-10 14:46:00 94 /min [facility] Systolic blood pressure 2022-08-07 17:58:00 114 mm[Hg] [facility] Diastolic blood pressure 2022-08-07 17:58:00 59 mm[Hg] [facility] Heart rate 2022-08-07 17:58:00 92 /min [facility] Body height 2022-08-07 17:58:00 165.1 cm [facility] Body weight 2022-08-07 17:58:00 115.214 kg [facility] BMI 2022-08-07 17:58:00 42.27 kg/m2 [facility] Oxygen saturation in Arterial blood by Pulse oximetry 2022-08-07 17:58:00 91 /min [facility] Systolic blood pressure 2022-07-19 22:01:00 145 mm[Hg] [facility] Diastolic blood pressure 2022-07-19 22:01:00 73 mm[Hg] [facility] Heart rate 2022-07-19 22:01:00 91 /min [facility] Respiratory rate 2022-07-19 22:01:00 15 /min [facility] Oxygen saturation in Arterial blood by Pulse oximetry 2022-07-19 22:01:00 92 /min [facility] Body temperature 2022-07-19 19:11:[address] [facility] Body weight 2022-07-19 19:11:00 111.585 kg [facility] BMI 2022-07-19 19:11:00 40.94 kg/m2 [facility] Systolic blood pressure 2022-07-16 16:47:00 139 mm[Hg] [facility] Diastolic blood pressure 2022-07-16 16:47:00 78 mm[Hg] [facility] Heart rate 2022-07-16 16:45:00 83 /min [facility] Respiratory rate 2022-07-16 16:45:00 22 /min [facility] Body height 2022-07-16 16:45:00 165.1 cm [facility] Body weight 2022-07-16 16:45:00 111.585 kg [facility] BMI 2022-07-16 16:45:00 40.94 kg/m2 [facility] Oxygen saturation in Arterial blood by Pulse oximetry 2022-07-16 16:45:00 93 /min [facility] Systolic blood pressure 2022-06-10 20:16:00 138 mm[Hg] [facility] Diastolic blood pressure 2022-06-10 20:16:00 72 mm[Hg] [facility] Heart rate 2022-06-10 20:16:00 84 /min [facility] Body weight 2022-06-10 20:16:00 111.993 kg [facility] BMI 2022-06-10 20:16:00 41.09 kg/m2 [facility] Oxygen saturation in Arterial blood by Pulse oximetry 2022-06-10 20:16:00 95 /min [facility] Systolic blood pressure 2022-06-04 16:31:00 138 mm[Hg] [facility] Diastolic blood pressure 2022-06-04 16:31:00 80 mm[Hg] [facility] Heart rate 2022-06-04 16:00:00 95 /min [facility] Body temperature 2022-06-04 16:00:[address] [facility] Body height 2022-06-04 16:00:00 165.1 cm [facility] Body weight 2022-06-04 16:00:00 111.131 kg [facility] BMI 2022-06-04 16:00:00 40.77 kg/m2 [facility] Oxygen saturation in Arterial blood by Pulse oximetry 2022-06-04 16:00:00 95 /min [facility] Systolic blood pressure 2022-05-29 18:11:00 161 mm[Hg] [facility] Diastolic blood pressure 2022-05-29 18:11:00 78 mm[Hg] [facility] Heart rate 2022-05-29 18:11:00 89 /min [facility] Respiratory rate 2022-05-29 18:11:00 20 /min [facility] Oxygen saturation in Arterial blood by Pulse oximetry 2022-05-29 18:11:00 98 /min [facility] Body temperature 2022-05-29 15:16:[address] [facility] Body height 2022-05-29 15:16:00 165.1 cm [facility] Body weight 2022-05-29 15:16:00 113.399 kg [facility] BMI 2022-05-29 15:16:00 41.60 kg/m2 [facility] Systolic blood pressure 2022-05-23 21:06:00 156 mm[Hg] [facility] Diastolic blood pressure 2022-05-23 21:06:00 78 mm[Hg] [facility] Heart rate 2022-05-23 21:06:00 87 /min [facility] Body weight 2022-05-23 21:06:00 113.036 kg [facility] BMI 2022-05-23 21:06:00 41.47 kg/m2 [facility] Oxygen saturation in Arterial blood by Pulse oximetry 2022-05-23 21:06:00 97 /min [facility] Systolic blood pressure 2022-05-08 17:02:00 127 mm[Hg] [facility] Diastolic blood pressure 2022-05-08 17:02:00 77 mm[Hg] [facility] Heart rate 2022-05-08 16:56:00 87 /min [facility] Body weight 2022-05-08 16:56:00 111.131 kg [facility] BMI 2022-05-08 16:56:00 40.77 kg/m2 [facility] Oxygen saturation in Arterial blood by Pulse oximetry 2022-05-08 16:56:00 96 /min Maunaloa o [facility] Procedures Procedure Date / Time Performed Performing Clinician Source POCT MOLECULAR STREP 2024-12-21 17:33:00 Unknown, Atte shira [facility] DME/SUPPLY JUSTIFICATION 2024-06-07 21:11:47 Doc tor Unassigned, Dimmitt [facility] - OTHER 2024-01-04 17:53:43 Doctor Nasreen [email or web address], [place]imm[place] [facility] - OTHER 2023-12-03 20:19:26 Doctor Nasreen medina, Dimmitt [facility] SCANNED LAB RESULTS 2023-11-16 17:14:14 Doctor Nasreen medina, Dimmitt [facility] - OTHER 2023-11-05 18:46:11 Doctor Nasreen medina, Dimmitt [facility] HEALTH (SCANNED) DOCUMENTS 2023-11-05 14:00:05 Doctor Unassigned, Dimmitt [facility] - OTHER 2023-11-02 12:43:55 Doctor Nasreen medina, Dimmitt [facility] SCANNED LAB RESULTS 2023-10-29 16:16:26 Doctor Nasreen medina, Dimmitt [facility] THYROID STIMULATING HORMONE 2023-10-14 18:15:[address] [facility] COMP. METABOLIC PANEL (70140) 2023-10-14 18:15:[address] [facility] LIPID PANEL (15448)(TOTAL CHOLESTEROL, TRIGLYCERIDES, HDL) 2023-10-14 18:15:[address] [facility] GLYCOSYLATED HEMOGLOBIN (A1C) 2023-10-14 18:15:[address] [facility] EXTERNAL PROVIDER RECORDS 2023-10-06 06:01:00 Do ctor Unassigned, Dimmitt [facility] - OTHER 2023-07-13 06:01:00 Doctor Nasreen medina, Dimmitt [facility] POCT HEMOGLOBIN A1C TEST 2023-07-10 17:48:[address] [facility] FLU VACC (), 6 MO-64 YRS, .5ML, IM, QUAD (FLUCELVAX) 2023-07-01 21:29:[address] [facility] PNEUMOCOCCAL 20 CONJUGATE (PREVNAR 20) VACCINE 2023-07-01 21:29:[address] [facility] EXTERNAL PROVIDER RECORDS 2023-06-17 06:01:00 Do ctor Unassigned, Dimmitt [facility] HOME HEALTH - OTHER 2023-04-20 05:01:00 Doctor Nasreen medina, Dimmitt [facility] EXTERNAL PROVIDER RECORDS 2023-03-10 05:01:00 Do ctor Unassigned, Dimmitt [facility] INSURANCE CORRESPONDENCE 2023-02-23 05:01:00 Doc annette Unassigned, Dimmitt [facility] DOWNTIME AMBULATORY DOCUMENTS 2023-01-24 05:01:00 Doctor Unassigned, Dimmitt [facility] ASSIGNMENT OF BENEFITS 2022-12-22 15:12:00 Docto r Unassigned, Dimmitt [facility] DME/SUPPLY JUSTIFICATION 2022-12-08 05:01:00 Doc tor Unassigned, Dimmitt [facility] PATIENT QUESTIONNAIRE 2022-11-25 05:01:00 Doctor Unassigned, Dimmitt [facility] DME/SUPPLY JUSTIFICATION 2022-11-13 05:01:00 Doc annette Unassigned, Dimmitt [facility] POCT MOLECULAR FLU 2022-10-30 16:23:[address] [facility] POCT MOLECULAR STREP 2022-10-30 16:22:00 Ade Contreras [facility] PATIENT FINANCIAL POLICY 2022-10-30 16:10:54 Doctor Unassigned, Dimmitt [facility] DME/SUPPLY JUSTIFICATION 2022-10-22 05:01:00 Doc annette Unassigned, Dimmitt [facility] HOME HEALTH - OTHER 2022-10-13 05:01:00 Doctor Nasreen medina, Dimmitt [facility] EXTERNAL PROVIDER RECORDS 2022-09-30 06:01:00 Do ctor Unassigned, Dimmitt [facility] DME/SUPPLY JUSTIFICATION 2022-09-25 06:01:00 Doc tor Unassigned, Dimmitt [facility] EXTERNAL PROVIDER RECORDS 2022-09-19 06:01:00 Do ctor Unassigned, Dimmitt [facility] EXTERNAL PROVIDER RECORDS 2022-09-04 06:01:00 Do ctor Unassigned, Dimmitt [facility] HOME HEALTH - OTHER 2022-08-20 06:01:00 Doctor Nasreen medina, Dimmitt [facility] EXTERNAL PROVIDER RECORDS 2022-08-11 06:01:00 Do ctor Unassigned, Dimmitt [facility] HEALTH - OTHER 2022-08-03 06:01:00 Doctor Nasreen medina, Dimmitt [facility] COMP. METABOLIC PANEL (59973) 2022-07-19 19:57:[address] [facility] CBC WITH DIFF 2022-07-19 19:57:00 Jesus Spain [facility] LACTIC ACID WHOLE BLOOD 2022-07-19 19:56:[address] [facility] XR HEEL 2+ VW LEFT 2022-07-19 19:48:[address] [facility] CONSENT/REFUSAL FOR DIAGNOSIS AND TREATMENT 2022-07-19 19:00:48 Doctor Unassigned, Dimmitt [facility] SLEEP STUDY DATA REPORT 2022-06-19 06:01:00 Doct or Unassigned, Dimmitt [facility] LIPASE 2022-05-29 16:08:00 Daylin Mojica [facility] TROPONIN I 2022-05-29 16:08:00 Daylin Mojica [facility] COMP. METABOLIC PANEL ([id number]) 2022-05-29 16:08:[address] [facility] CBC WITH DIFF 2022-05-29 16:08:00 Daylin Mojica [facility] URINALYSIS 2022-05-29 16:02:00 Daylin Mojica [facility] CONSENT/REFUSAL FOR DIAGNOSIS AND TREATMENT 2022-05-29 15:11:18 Doctor Unassigned, Dimmitt [facility] POCT HEMOGLOBIN A1C TEST 2022-05-23 21:18:[address] [facility] PHYSICIAN ORDERS 2022-05-08 05:01:00 Doctor Unas signed, Dimmitt [facility] Encounters Start Date/Time End Date/Time Encounter Type Admission Type Attending [facility] Care Department Encounter ID Source 2024-09-07 11:47:01 Outpatient Jefferson Witt [facility] [id number] [facility] 2021-06-01 23:56:14 Emergency [facility] [id number] [facility] 2021-06-01 12:13:32 Outpatient BISI CARDOSO [facility] [id number] [facility] 2025-04-07 15:30:00 2025-04-07 15:30:00 Outpatient GIOVANY GOTTI [facility] [id number] [facility] 2025-02-27 00:00:00 2025-02-28 14:33:48 Refill Jefferson Witt [facility] 1.2.840.114 350.1.13.10 4.2.7.2.[id number] [facility] 2025-02-26 00:00:00 2025-02-26 17:46:52 [facility] 1.2.840.114 350.1.13.10 4.2.7.2.[id number] [facility] 2025-02-16 00:00:00 2025-02-21 13:11:37 Telephone Jefferson Witt [facility] 1.2.840.114 350.1.13.10 4.2.7.2.[id number] [facility] 2024-12-26 00:00:00 2024-12-27 09:57:31 [facility] 1.2.840.114 350.1.13.10 4.2.7.2.[id number] [facility] 2024-12-22 00:00:00 2024-12-22 12:12:47 [facility]phone [facility] OFF[facility] BUILD[facility] 1.2.840.114 350.1.13.10 4.2.7.2.[id number] [facility] 2024-12-21 12:00:00 2024-12-21 12:55:55 Urgent Care R [facility] 1.2.840.114 350.1.13.10 4.2.7.2.[id number] [facility] 2024-12-06 00:00:00 2024-12-06 10:53:35 [facility] 1.2.840.114 350.1.13.10 4.2.7.2.[id number] [facility] 2024-11-08 00:00:00 2024-11-09 06:35:25 [facility]ill [facility] MARYVALEUlices [facility] OFF[facility] 1.2.840.114 350.1.13.10 4.2.7.2.[id number] [facility] 2024-10-21 00:00:00 2024-10-27 13:51:53 Telephone [facility]VALEUlices [facility] OFF[facility] BU[facility] 1.2.840.114 350.1.13.10 4.2.7.2.[id number] [facility] 2024-10-04 00:00:00 2024-10-04 14:11:08 Telephone CliffLucianodipti [facility] BUILD[facility] 1.2.840.114 350.1.13.10 4.2.7.2.[id number] [facility] 2024-01-04 00:00:00 2024-09-17 07:37:54 Orders Only Doctor Unassigned, Dimmitt Doctor Unassigned, Dimmitt [facility] (BISI) 1.2.840.114 350.1.13.10 4.2.7.2.[id number] [facility] 2024-06-07 00:00:00 2024-09-17 06:41:39 Orders Only Doctor Unassigned, Dimmitt Doctor Unassigned, [place] ([facility]) 1.2.840.114 350.1.13.10 4.2.7.2.[id number] [facility] 2020-07-11 00:00:00 2024-09-17 02:58:34 Orders Only Gates, Paige A Paige Gates A [facility] OFFICE BUILDING ONE 1.2.840.114 350.1.13.10 4.2.7.2.[id number] [facility] 2023-10-29 00:00:00 2024-09-17 02:32:48 Orders Only Doctor Unassigned, Dimmitt Doctor Unassigned, Dimmitt [facility] ([facility]IS[facility]) 1.2.840.114 350.1.13.10 4.2.7.2.[id number] [facility] 2023-11-02 00:00:00 2024-09-17 02:30:48 Orders Only Doctor Unassigned, Dimmitt Doctor Unassigned, [place]immitt [facility] ([facility]) 1.2.840.114 350.1.13.10 4.2.7.2.[id number] [facility] 2023-11-05 00:00:00 2024-09-17 02:27:45 Orders Only Doctor Unassigned, Dimmitt Doctor Unassigned, Dimmitt [facility] ([facility]IS[facility]) 1.2.840.114 350.1.13.10 4.2.7.2.[id number] [facility] 2023-11-05 00:00:00 2024-09-17 02:27:30 Orders Only Doctor Unassigned, Dimmitt Doctor Unassigned, Dimmitt [facility] ([facility]) 1.2.840.114 350.1.13.10 4.2.7.2.[id number] [facility] 2023-11-16 00:00:00 2024-09-17 02:20:19 Orders Only Doctor Unassigned, Dimmitt Doctor Unassigned, Dimmitt [facility] ([facility]) 1.2.840.114 350.1.13.10 4.2.7.2.[id number] [facility] 2023-12-03 00:00:00 2024-09-17 02:05:30 Orders Only Doctor Unassigned, Dimmitt Doctor Unassigned, Dimmitt [facility] ([facility]) 1.2.840.114 350.1.13.10 4.2.7.2.[id number] [facility] 2024-08-10 00:00:00 2024-08-11 14:59:59 [facility] OFF[facility] BUILDING 1.2840.114 350.1.13.10 4.2.7.2.[id number] [facility] 2024-08-10 00:00:00 2024-08-10 11:35:07 [facility] 1.2840.114 350.1.13.10 4.2.7.2.[id number] [facility] 2024-07-19 12:20:00 2024-07-19 12:40:00 Urgent Care Bisi Caceres Jay, Attending [facility] 1.84.114 350.1.13.10 4.2.7.2.[id number] [facility] 2024-07-19 12:20:00 2024-07-19 12:20:00 Outpatient R BISI CACERES [facility] [id number] [facility] 2024-07-10 00:00:00 2024-07-12 14:50:20 Refprabhjot Witt [facility] 1..840.114 350.1.13.10 4.2.7.2.[id number] [facility] 2024-07-08 00:00:00 2024-07-12 14:22:27 Refprabhjot Witt [facility] BU[facility] 1.84.114 350.1.13.10 4.2.7.2.[id number] [facility] 2024-06-29 09:40:00 2024-06-29 10:08:09 Outpatient R ROBBIE CORONADO [facility] [id number] [facility] 2024-06-29 09:40:00 2024-06-29 10:00:00 Office Visit Robbie Coronado [facility] JAZZY HERNADEZESSIO NAL BUILDING 1.84.114 350.1.13.10 4.2.7.2.[id number] [facility] 2024-05-23 14:00:00 2024-05-23 14:00:00 Outpatient R CLAIRE ELAM [facility] [id number] [facility] 2024-05-13 14:30:00 2024-05-13 14:30:00 Outpatient GIOVANY GOTTI [facility] [id number] [facility] 2024-04-13 00:00:00 2024-04-13 10:35:21 Viktoriya Witt [facility]?MARISELA [facility] MED[facility] OFFICE BUILDING 1.84.114 350.1.13.10 4.2.7.2.[id number] [facility] 2024-03-09 10:00:00 2024-03-09 10:20:00 Urgent Care Bisi Caceres, Attending [facility] 1.84.114 350.1.13.10 4.2.7.2.[id number] [facility] 2024-03-09 10:00:00 2024-03-09 10:00:00 Outpatient BISI COONEY [facility] [id number] [facility] 2024-02-13 00:00:00 2024-02-15 14:44:54 Giovany Morton [facility] MED[facility] OFF[facility] BUILDING 1.84.114 350.1.13.10 4.2.7.2.[id number] [facility] 2024-02-13 00:00:00 2024-02-15 11:03:34 Refprabhjot Witt [facility] MA[facility]IO?[facility] MED[facility] OFF[facility] BUILDING 1.84.114 350.1.13.10 4.2.7.2.[id number] [facility] 2024-02-12 00:00:00 2024-02-12 09:36:49 Telephone Jefferson Witt [facility]VAL[facility] OFF[facility] BU[facility] 1.2.840.114 350.1.13.10 4.2.7.2.[id number] [facility] 2024-01-26 00:00:00 2024-01-27 06:12:18 [facility]ill [facility] 1.840.114 350.1.13.10 4.2.7.2.[id number] [facility] 2024-01-14 00:00:00 2024-01-15 08:07:43 Telephone Eduar [facility] MED[facility] OFFICE BUILDING 1.114 350.1.13.10 4.2.7.2.[id number] [facility] 2024-01-14 12:45:00 2024-01-14 12:45:00 Outpatient R JEFFERSON WITT [facility] [id number] [facility] 2024-01-08 11:30:00 2024-01-08 11:30:00 Outpatient R GIOVANY ANTOINE [facility] [id number] [facility] 2023-12-29 00:00:00 2024-01-07 09:38:12 Telephone Giovany Antoine [facility] [id number] [facility] 2024-01-01 14:30:00 2024-01-01 14:30:00 Outpatient R GIOVANY ANTOINE [facility] [id number] [facility] 2023-12-29 00:00:00 2023-12-30 06:19:23 Refill Eduar [facility] [id number] [facility] 2023-12-25 15:30:00 2023-12-25 16:19:57 Outpatient R GIOVANY ANTOINE [facility] [id number] [facility] 2023-12-25 15:30:00 2023-12-25 16:19:57 Office Visit [facility] 1.2.840.114 350.1.13.10 4.2.7.2.[id number] [facility] 2023-12-23 09:30:00 2023-12-23 09:30:00 Outpatient R DANIEL CASTELLON [facility] [id number] [facility] 2023-12-22 00:00:00 2023-12-23 07:41:04 [facility] 1.2.840.114 350.1.13.10 4.2.7.2.[id number] [facility] 2023-12-21 00:00:00 2023-12-22 08:45:45 Telephone Giovany Antoine [facility] 1.2.840.114 350.1.13.10 4.2.7.2.[id number] [facility] 2023-12-21 09:45:00 2023-12-21 09:45:00 Outpatient R JEFFERSON WITT [facility] [id number] [facility] 2023-12-17 09:00:00 2023-12-17 09:00:00 Outpatient R DOMINGA-MONTSE BAINS OBI-MONTSE BAINS [facility] [id number] [facility] 2023-12-15 00:00:00 2023-12-15 16:18:11 Refill Eduar [facility]?MARISELA [facility] 1.2.840.114 350.1.13.10 4.2.7.2.[id number] [facility] 2023-12-15 00:00:00 2023-12-15 13:31:42 Telephone Jefferson Witt [facility]MARISELA [facility] 1.2.840.114 350.1.13.10 4.2.7.2.[id number] [facility] 2023-12-15 00:00:00 2023-12-15 10:15:58 Telephone Jefferson Witt [facility] 1.2.840.114 350.1.13.10 4.2.7.2.[id number] [facility] 2023-12-11 00:00:00 2023-12-14 17:17:47 Telephone Giovany Antoine [facility] 1.2.840.114 350.1.13.10 4.2.7.2.[id number] [facility] 2023-12-09 00:00:00 2023-12-11 15:32:48 Telephone Jefferson Witt [facility] 1.2.840.114 350.1.13.10 4.2.7.2.[id number] [facility] 2023-12-08 00:00:00 2023-12-08 13:49:24 Refill Giovany Antoine [facility] 1.2.840.114 350.1.13.10 4.2.7.2.[id number] [facility] 2023-12-07 00:00:00 2023-12-08 12:44:04 Telephone Jefferson Witt [facility] 1.2.840.114 350.1.13.10 4.2.7.2.[id number] [facility] 2023-12-02 08:30:00 2023-12-02 08:45:00 Office Visit Jefferson Witt [facility] 1.2.840.114 350.1.13.10 4.2.7.2.[id number] [facility] 2023-12-02 08:30:00 2023-12-02 08:30:00 Outpatient R JEFFERSON WITT [facility] [id number] [facility] 2023-12-01 00:00:00 2023-12-01 00:00:00 Telephone Eduar [facility] [place]?MARISELA [facility] OFF[facility] BUILD[facility] 1.2840.114 350.1.13.10 4.2.7.2.[id number] [facility] 2023-12-01 00:00:00 2023-12-01 00:00:00 [facility]ill [facility]?MARISELA [facility] 1.2.840.114 350.1.13.10 4.2.7.2.[id number] [facility] 2023-11-29 00:00:00 2023-11-29 00:00:00 Refill Eduar [facility]ILD[facility] 1.2.840.114 350.1.13.10 4.2.7.2.[id number] [facility] 2023-11-28 00:00:00 2023-11-28 00:00:00 Nurse Triage Priti Robles [facility] 1.2840.114 350.1.13.10 4.2.7.2.[id number] [facility] 2023-11-23 00:00:00 2023-11-23 00:00:00 [facility] 1.2840.114 350.1.13.10 4.2.7.2.[id number] [facility] 2023-11-17 00:00:00 2023-11-17 00:00:00 Refill Eduar [facility] BUILD[facility] 1.840.114 350.1.13.10 4.2.7.2.[id number] [facility] 2023-11-12 00:00:00 2023-11-12 00:00:00 Telephone Eduar Jefferson [facility] BU[facility] 1.0.114 350.1.13.10 4.2.7.2.[id number] [facility] 2023-11-11 00:00:00 2023-11-11 00:00:00 Telephone Eduar [facility] 1.2840.114 350.1.13.10 4.2.7.2.[id number] [facility] 2023-11-09 14:15:00 2023-11-09 14:18:10 Outpatient R EDUAR JEFFERSON [facility] [id number] [facility] 2023-11-09 14:15:00 2023-11-09 14:18:10 Rn Office Visit Lab, Fritz Valencia Witt [facility] [place] OFF[facility] BUILDING 1.2840.114 350.1.13.10 4.2.7.2.[id number] [facility] 2023-11-09 14:00:00 2023-11-09 14:15:00 Office Visit Jefferson Witt [facility] MIRNA GLEASON?MARISELA [facility] 1.2.840.114 350.1.13.10 4.2.7.2.[id number] [facility] 2023-11-04 00:00:00 2023-11-04 00:00:00 Telephone Jefferson Witt [facility] MIRNA GLEASON?MARISELA [facility] BUILD[facility] 1.2.840.114 350.1.13.10 4.2.7.2.[id number] [facility] 2023-11-03 00:00:00 2023-11-03 00:00:00 Telephone Jefferson Witt [facility]?MARISELA [facility] OFF[facility] BUILD[facility] 1.2.840.114 350.1.13.10 4.2.7.2.[id number] [facility] 2023-11-02 00:00:00 2023-11-02 00:00:00 Refill [facility] MED[facility] OFF[facility] BUILDING 1.2.840.114 350.1.13.10 4.2.7.2.[id number] [facility] 2023-10-15 00:00:00 2023-10-15 00:00:00 Telephone Jefferson Witt [facility] MED[facility] OFF[facility] BUILD[facility] 1.2.840.114 350.1.13.10 4.2.7.2.[id number] [facility] 2023-10-15 00:00:00 2023-10-15 00:00:00 Refill Bassam [facility] MED[facility] OFF[facility] BUILDING 1.2.840.114 350.1.13.10 4.2.7.2.[id number] [facility] 2023-10-14 13:15:00 2023-10-14 13:36:52 Rn Office Visit Lab, Ang - Db Witt, [facility] [place]ICIO?MARISELA [facility] MED[facility] OFFICE BUILDING 1.2.840.114 350.1.13.10 4.2.7.2.[id number] [facility] 2023-10-14 12:45:00 2023-10-14 13:03:06 Outpatient R EDUAR [facility] [id number] [facility] 2023-10-14 12:45:00 2023-10-14 13:03:06 Office Visit Eduar [facility] [place]?MARISELA [facility] MED[facility] OFF[facility] BUILDING 1.2.840.114 350.1.13.10 4.2.7.2.[id number] [facility] 2023-10-09 00:00:00 2023-10-09 00:00:00 Refill Eduar [facility] MED[facility] OFF[facility] BUILDING 1.840.114 350.1.13.10 4.2.7.2.[id number] [facility] 2023-10-09 00:00:00 2023-10-09 00:00:00 Refill Eduar [facility] MED[facility] OFF[facility] BUILD[facility] 1.840.114 350.1.13.10 4.2.7.2.[id number] [facility] 2023-10-09 00:00:00 2023-10-09 00:00:00 Refill Eduar [facility] MED[facility] OFF[facility] BUILDING 1.2.840.114 350.1.13.10 4.2.7.2.[id number] [facility] 2023-10-06 00:00:00 2023-10-06 00:00:00 Orders Only Doctor Unassigned, Dimmitt [facility] 1.2840.114 350.1.13.10 4.2.7.2.[id number] [facility] 2023-10-05 13:00:00 2023-10-05 13:00:00 Outpatient JEFFERSON PEREZ [facility] [id number] [facility] 2023-10-05 09:30:00 2023-10-05 09:30:00 Outpatient JEFFERSON PEREZ [facility] [id number] [facility] 2023-10-01 00:00:00 2023-10-01 00:00:00 Refill Eduar [facility] MED[facility] OFF[facility] BUILDING 1.2840.114 350.1.13.10 4.2.7.2.[id number] [facility] 2023-09-24 00:00:00 2023-09-24 00:00:00 Telephone Eduar [facility] MED[facility] OFF[facility] BUILDING 1.2840.114 350.1.13.10 4.2.7.2.[id number] [facility] 2023-09-16 00:00:00 2023-09-16 00:00:00 Refill Eduar [facility] MED[facility] OFF[facility] BUILDING 1.2840.114 350.1.13.10 4.2.7.2.[id number] [facility] 2023-09-15 00:00:00 2023-09-15 00:00:00 Refill Eduar [facility] MED[facility] OFF[facility] BUILDING 1.2840.114 350.1.13.10 4.2.7.2.[id number] [facility] 2023-09-11 00:00:00 2023-09-11 00:00:00 [facility]ill [facility] 1.840.114 350.1.13.10 4.2.7.2.[id number] [facility] 2023-09-11 00:00:00 2023-09-11 00:00:00 Refill Eduar [facility] 1.2840.114 350.1.13.10 4.2.7.2.[id number] [facility] 2023-09-10 00:00:00 2023-09-10 00:00:00 Telephone Eduar [facility]?MARISELA [facility] MED[facility] OFF[facility] BUILDING 1.840.114 350.1.13.10 4.2.7.2.[id number] [facility] 2023-09-02 00:00:00 2023-09-02 00:00:00 Refill Eduar [facility]?MARISELA [facility] MED[facility] OFF[facility] BUILDING 1.840.114 350.1.13.10 4.2.7.2.[id number] [facility] 2023-08-18 00:00:00 2023-08-18 00:00:00 Refill Eduar [facility] [place]?MARISELA [facility] MED[facility] OFFICE BUILDING 1.2840.114 350.1.13.10 4.2.7.2.[id number] [facility] 2023-08-14 08:45:00 2023-08-14 09:33:25 Outpatient NORA BARRAZA [facility] [id number] [facility] 2023-08-14 08:45:00 2023-08-14 09:00:00 Rn Office Visit Lab, Nora Moss [facility] MED[facility] OFFICE BUILDING 1.2.840.114 350.1.13.10 4.2.7.2.[id number] [facility] 2023-08-10 09:30:00 2023-08-10 09:30:00 Outpatient R JEFFERSON WITT [facility] [id number] [facility] 2023-08-07 00:00:00 2023-08-07 00:00:00 Refill Eduar Jefferson [facility] 1.840.114 350.1.13.10 4.2.7.2.[id number] [facility] 2023-08-07 00:00:00 2023-08-07 00:00:00 Refill Giovany Antoine [facility] MED[facility] OFFICE BUILDING 1.0.114 350.1.13.10 4.2.7.2.[id number] [facility] 2023-08-05 00:00:00 2023-08-05 00:00:00 Refill Eduar Jefferson [facility] MED[facility] OFF[facility] BUILDING 1.840.114 350.1.13.10 4.2.7.2.[id number] [facility] 2023-08-04 00:00:00 2023-08-04 00:00:00 Telephone Jefferson Witt [facility]?MARISELA [facility] MED[facility] OFFICE BUILDING 1.2840.114 350.1.13.10 4.2.7.2.[id number] [facility] 2023-07-29 00:00:00 2023-07-29 00:00:00 Refill Giovany Antoine [facility] MED[facility] OFFICE BUILDING 1.840.114 350.1.13.10 4.2.7.2.[id number] [facility] 2023-07-28 14:40:00 2023-07-28 15:00:00 Urgent Care Ana Riddle Unknown, Attending [facility] MED[facility] OFFICE BUILDING 1.2840.114 350.1.13.10 4.2.7.2.[id number] [facility] 2023-07-28 14:40:00 2023-07-28 14:40:00 Outpatient R ANA RIDDLE [facility] [id number] [facility] 2023-07-21 00:00:00 2023-07-21 00:00:00 Telephone Eduar [facility] OFF[facility] BUILDING 1.840.114 350.1.13.10 4.2.7.2.[id number] [facility] 2023-07-17 00:00:00 2023-07-17 00:00:00 [facility] 1.84.114 350.1.13.10 4.2.7.2.[id number] [facility] 2023-07-14 00:00:00 2023-07-14 00:00:00 [facility] 1.84.114 350.1.13.10 4.2.7.2.[id number] [facility] 2023-07-13 00:00:00 2023-07-13 00:00:00 Orders Only Doctor Unassigned, Dimmitt [facility] 1.2840.114 350.1.13.10 4.2.7.2.[id number] [facility] 2023-07-10 11:30:00 2023-07-10 12:21:58 Outpatient R GIOVANY ANTOINE [facility] [id number] [facility] 2023-07-10 11:30:00 2023-07-10 12:21:58 Office Visit Giovany Antoine [facility] 1.2.840.114 350.1.13.10 4.2.7.2.[id number] [facility] 2023-07-09 09:00:00 2023-07-09 09:14:16 Outpatient R CARLA VELASCO [facility] [id number] [facility] 2023-07-09 09:00:00 2023-07-09 09:14:16 Office Visit Carla Velasco [facility]?MARISELA [facility] MED[facility] OFFICE BUILDING 1..840.114 350.1.13.10 4.2.7.2.[id number] [facility] 2023-07-07 00:00:00 2023-07-07 00:00:00 Refill Eduar [facility] MED[facility] OFFICE BUILDING 1..840.114 350.1.13.10 4.2.7.2.[id number] [facility] 2023-07-07 00:00:00 2023-07-07 00:00:00 Refill Eduar [facility] Health[facility] MED[facility] OFF[facility] BUILDING 1..840.114 350.1.13.10 4.2.7.2.[id number] [facility] 2023-07-06 00:00:00 2023-07-06 00:00:00 Refill Eduar [facility] Health[facility] MED[facility] OFF[facility] BUILDING 1.2.840.114 350.1.13.10 4.2.7.2.[id number] [facility] 2023-07-01 15:15:00 2023-07-01 15:39:06 Outpatient R JEFFERSON WITT [facility] [id number] [facility] 2023-07-01 15:15:00 2023-07-01 15:39:06 Office Visit Jefferson Witt [facility] 1.840.114 350.1.13.10 4.2.7.2.[id number] [facility] 2023-06-27 00:00:00 2023-06-27 00:00:00 Refill Jefferson Witt [facility] MED[facility] OFF[facility] BUILD[facility] 1..114 350.1.13.10 4.2.7.2.[id number] [facility] 2023-06-23 00:00:00 2023-06-23 00:00:00 Refill Jefferson Witt [facility] MED[facility] OFFICE BUILDING 1.0.114 350.1.13.10 4.2.7.2.[id number] [facility] 2023-06-17 00:00:00 2023-06-17 00:00:00 Orders Only Doctor Unassigned, Dimmitt [facility] 1..114 350.1.13.10 4.2.7.2.[id number] [facility] 2023-06-15 00:00:00 2023-06-15 00:00:00 Telephone Jefferson Witt [facility] MED[facility] OFF[facility] BUILD[facility] 1..114 350.1.13.10 4.2.7.2.[id number] [facility] 2023-06-08 00:00:00 2023-06-08 00:00:00 Refill [facility] OFF[facility] BUILD[facility] 1.20.114 350.1.13.10 4.2.7.2.[id number] [facility] 2023-06-03 00:00:00 2023-06-03 00:00:00 Telephone Jefferson Witt [facility]?MARISELA [facility] OFF[facility] BUILD[facility] 1.2840.114 350.1.13.10 4.2.7.2.[id number] [facility] 2023-06-03 00:00:00 2023-06-03 00:00:00 Telephone Jefferson Witt [facility] OFF[facility] BUILD[facility] 1.2840.114 350.1.13.10 4.2.7.2.[id number] [facility] 2023-05-19 00:00:00 2023-05-19 00:00:00 Telephone Jefferson Witt [facility] OFF[facility] BUILD[facility] 1.2840.114 350.1.13.10 4.2.7.2.[id number] [facility] 2023-05-19 00:00:00 2023-05-19 00:00:00 Patient Secure Msg Doctor Unassigned, Dimmitt [facility] 1.2840.114 350.1.13.10 4.2.7.2.[id number] [facility] 2023-05-14 09:30:00 2023-05-14 09:30:00 Outpatient R JEFFERSON WITT [facility] [id number] [facility] 2023-05-13 00:00:00 2023-05-13 00:00:00 Refill Eduar [facility]?MARISELA [facility] OFF[facility]ILD[facility] 1.2840.114 350.1.13.10 4.2.7.2.[id number] [facility] 2023-05-13 00:00:00 2023-05-13 00:00:00 Refill Eduar [facility]?MARISELA [facility] OFF[facility]ILD[facility] 1..840.114 350.1.13.10 4.2.7.2.[id number] [facility] 2023-05-13 00:00:00 2023-05-13 00:00:00 Giovany Morton [facility] MED[facility] OFF[facility] BUILD[facility] 1.840.114 350.1.13.10 4.2.7.2.[id number] [facility] 2023-05-12 10:45:00 2023-05-12 11:00:00 Rn Office Visit Pob, Adc Lab Main Jefferson Witt [facility] BUILD[facility] 1.840.114 350.1.13.10 4.2.7.2.[id number] [facility] 2023-05-12 10:45:00 2023-05-12 10:45:00 Outpatient JEFFERSON PEREZ [facility] [id number] [facility] 2023-05-11 14:15:00 2023-05-11 14:30:00 Rn Office Visit Lab, [facility] MED[facility] OFF[facility] BUILDING 1.840.114 350.1.13.10 4.2.7.2.[id number] [facility] 2023-05-11 14:15:00 2023-05-11 14:15:00 Outpatient JEFFERSON PEREZ [facility] [id number] [facility] 2023-05-11 13:30:00 2023-05-11 13:45:00 Office Visit [facility] OFF[facility]ILD[facility] 1.840.114 350.1.13.10 4.2.7.2.[id number] [facility] 2023-05-08 00:00:00 2023-05-08 00:00:00 Telephone Jefferson Witt [facility] MED[facility] OFF[facility] BUILDING 1.2840.114 350.1.13.10 4.2.7.2.[id number] [facility] 2023-05-07 00:00:00 2023-05-07 00:00:00 Telephone Eduar Jefferson [facility] MED[facility] OFFICE BUILD[facility] 1.2840.114 350.1.13.10 4.2.7.2.[id number] [facility] 2023-05-06 10:00:00 2023-05-06 10:00:00 [facility] [id number] [facility] 2023-04-30 00:00:00 2023-04-30 00:00:00 Refill Eduar [facility]IC[facility] MED[facility] OFFICE BUILDING 1.2840.114 350.1.13.10 4.2.7.2.[id number] [facility] 2023-04-30 00:00:00 2023-04-30 00:00:00 RefGiovany Waddell [facility] MED[facility] OFFICE BUILD[facility] 1.2840.114 350.1.13.10 4.2.7.2.[id number] [facility] 2023-04-29 00:00:00 2023-04-29 00:00:00 Telephone Eduar [facility] MED[facility] OFFICE BUILD[facility] 1.2840.114 350.1.13.10 4.2.7.2.[id number] [facility] 2023-04-27 00:00:00 2023-04-27 00:00:00 Telephone Bass[facility] Witt[facility] 1.2.840.114 350.1.13.10 4.2.7.2.[id number] [facility] 2023-04-20 00:00:00 2023-04-20 00:00:00 Orders Only Doctor Unassigned, D[place]itt [facility] 1.2.840.114 350.1.13.10 4.2.7.2.[id number] [facility] 2023-04-15 00:00:00 2023-04-15 00:00:00 Telephone WittJefferson horvath [facility] MEDICAL OFFICE BUILDING 1.2.840.114 350.1.13.10 4.2.7.2.[id number] [facility] 2023-04-13 00:00:00 2023-04-13 00:00:00 Refill Jefferson Witt [facility] 1.2.840.114 350.1.13.10 4.2.7.2.[id number] [facility] 2023-04-13 00:00:00 2023-04-13 00:00:00 Telephone Jefferson Witt [facility] MED[facility] OFFICE BUILDING 1.2.840.114 350.1.13.10 4.2.7.2.[id number] [facility] 2023-04-08 09:30:00 2023-04-08 09:46:20 Outpatient R JEFFERSON WITT [facility] [id number] [facility] 2023-04-08 09:30:00 2023-04-08 09:46:20 [facility] 1.2840.114 350.1.13.10 4.2.7.2.[id number] [facility] 2023-04-07 00:00:00 2023-04-07 00:00:00 Telephone Jefferson Witt [facility] 1.2840.114 350.1.13.10 4.2.7.2.[id number] [facility] 2023-04-02 10:15:00 2023-04-02 10:15:00 Outpatient R JEFFERSON WITT [facility] [id number] [facility] 2023-03-30 12:00:00 2023-03-30 12:00:00 Outpatient R JEFFERSON WITT [facility] [id number] [facility] 2023-03-28 00:00:00 2023-03-28 00:00:00 Nurse Triage Alana Baptiste [facility] 1.840.114 350.1.13.10 4.2.7.2.[id number] [facility] 2023-03-28 00:00:00 2023-03-28 00:00:00 Refill Eduar [facility] MED[facility] OFFICE BUILDING 1.2840.114 350.1.13.10 4.2.7.2.[id number] [facility] 2023-03-27 00:00:00 2023-03-27 00:00:00 Telephone Jefferson Witt [facility] 1.2840.114 350.1.13.10 4.2.7.2.[id number] [facility] 2023-03-26 13:00:00 2023-03-26 13:15:00 Office Visit Eduar [facility] MAURICIO?[facility] 1.84114 350.1.13.10 4.2.7.2.[id number] [facility] 2023-03-26 13:00:00 2023-03-26 13:00:00 Outpatient R JEFFERSON WITT [facility] [id number] [facility] 2023-03-26 00:00:00 2023-03-26 00:00:00 Telephone Eduar [facility] MAURICIO?[facility] 1.114 350.1.13.10 4.2.7.2.[id number] [facility] 2023-03-23 12:57:00 2023-03-23 12:57:00 Outpatient MAGDY Fer, Suma [facility] [id number] [facility] 2023-03-20 12:30:00 2023-03-20 12:30:00 Outpatient ROSETTE ROME [facility] [id number] [facility] 2023-03-16 00:00:00 2023-03-16 00:00:00 Refill [facility] 1.114 350.1.13.10 4.2.7.2.[id number] [facility] 2023-03-10 00:00:00 2023-03-10 00:00:00 Orders Only Doctor Unassigned, Dimmitt [facility] 1.114 350.1.13.10 4.2.7.2.[id number] [facility] 2023-02-24 00:00:00 2023-02-24 00:00:00 Telephone Giovany Antoine [facility] MAURICIO?[facility] 1.114 350.1.13.10 4.2.7.2.[id number] [facility] 2023-02-23 00:00:00 2023-02-23 00:00:00 Orders Only Doctor Unassigned, Dimmitt [facility] 1.20.114 350.1.13.10 4.2.7.2.[id number] [facility] 2023-02-20 00:00:00 2023-02-20 00:00:00 Refill Giovany Antoine [facility] OFF[facility] BUILD[facility] 1.84.114 350.1.13.10 4.2.7.2.[id number] [facility] 2023-02-20 00:00:00 2023-02-20 00:00:00 [facility] MED[facility] OFF[facility] BUILD[facility] 1.284.114 350.1.13.10 4.2.7.2.[id number] [facility] 2023-02-13 11:00:00 2023-02-13 11:00:00 Outpatient R GIOVANY ANTOINE [facility] [id number] [facility] 2023-02-12 00:00:00 2023-02-12 00:00:00 Refill Eduar [facility] MAURICIO?[facility] MARYVALEUlices [facility] MEDICAL OFFICE BUILDING 1.284.114 350.1.13.10 4.2.7.2.[id number] [facility] 2023-02-11 09:45:00 2023-02-11 10:00:00 [facility] MARYVALEUlices [facility] MEDICAL OFFICE BUILDING 1.284.114 350.1.13.10 4.2.7.2.[id number] [facility] 2023-02-11 09:45:00 2023-02-11 09:45:00 Outpatient R JEFFERSON WITT [facility] [id number] [facility] 2023-02-05 00:00:00 2023-02-05 00:00:00 [facility] MIRNA G[facility]ASON?[facility] 1.2.840.114 350.1.13.10 4.2.7.2.[id number] [facility] 2023-02-04 00:00:00 2023-02-04 00:00:00 Telephone Jefferson Witt [facility]EL[facility] GLEASON?MARISELA [facility] MEDICAL OFFICE BUILDING 1.2.840.114 350.1.13.10 4.2.7.2.[id number] [facility] 2023-01-26 00:00:00 2023-01-26 00:00:00 Refill Eduar [facility] MARYVALEUlices [facility] MEDICAL OFFICE BUILDING 1.2.840.114 350.1.13.10 4.2.7.2.[id number] [facility] 2023-01-26 00:00:00 2023-01-26 00:00:00 Telephone [facility]?MARISELA [facility] MEDICAL OFFICE BUILDING 1.2.840.114 350.1.13.10 4.2.7.2.[id number] [facility] 2023-01-24 11:00:00 2023-01-24 11:20:00 Urgent Care Richard Vidal, Attending [facility] MEDICAL OFFICE BUILDING 1.2.840.114 350.1.13.10 4.2.7.2.[id number] [facility] 2023-01-24 11:00:00 2023-01-24 11:00:00 Outpatient R RICHARD VIDAL [facility] [id number] [facility] 2023-01-24 00:00:00 2023-01-24 00:00:00 Orders Only Doctor Unassigned, Dimmitt [facility] 1.84.114 350.1.13.10 4.2.7.2.[id number] [facility] 2023-01-19 00:00:00 2023-01-19 00:00:00 Telephone Giovany Antoine [facility]?MARISELA [facility] MEDICAL OFFICE BUILDING 1.840.114 350.1.13.10 4.2.7.2.[id number] [facility] 2023-01-12 10:15:00 2023-01-12 10:15:00 Outpatient R JEFFERSON WITT [facility] [id number] [facility] 2023-01-09 00:00:00 2023-01-09 00:00:00 Refill Jeffreson Witt [facility] MA[facility]?MARISELA [facility] MEDICAL OFFICE BUILDING 1.840.114 350.1.13.10 4.2.7.2.[id number] [facility] 2023-01-09 00:00:00 2023-01-09 00:00:00 Refill Eduar Jefferson [facility] MA[facility]?ERIUlices [facility] MED[facility] OFFICE BUILDING 1.840.114 350.1.13.10 4.2.7.2.[id number] [facility] 2023-01-07 00:00:00 2023-01-07 00:00:00 Telephone Eduar Jefferson [facility]VAL[facility]lices [facility] MEDICAL OFFICE BUILDING 1.840.114 350.1.13.10 4.2.7.2.[id number] [facility] 2023-01-02 00:00:00 2023-01-02 00:00:00 Refill Daniel Castellon [facility]?MARISELA [facility] MEDICAL OFFICE BUILDING 1.2840.114 350.1.13.10 4.2.7.2.[id number] [facility] 2023-01-01 00:00:00 2023-01-01 00:00:00 Refill Eduar [facility] MAURICIO?[facility] MARYVALEUlices [facility] MEDICAL OFFICE BUILDING 1.2840.114 350.1.13.10 4.2.7.2.[id number] [facility] 2023-01-01 00:00:00 2023-01-01 00:00:00 Telephone Jefferson Witt [facility]VAL[facility]lices [facility] MEDICAL OFFICE BUILDING 1.2840.114 350.1.13.10 4.2.7.2.[id number] [facility] 2022-12-31 00:00:00 2022-12-31 00:00:00 Telephone Eduar [facility] MAURICIO?[facility] M[facility]VAL[facility]lices [facility] MEDICAL OFFICE BUILDING 1.2840.114 350.1.13.10 4.2.7.2.[id number] [facility] 2022-12-28 00:00:00 2022-12-28 00:00:00 DoniGiovany [facility] OFF[facility] BUILD[facility] 1.2840.114 350.1.13.10 4.2.7.2.[id number] [facility] 2022-12-24 00:00:00 2022-12-24 00:00:00 Telephone Claudia [facility] 1.2840.114 350.1.13.10 4.2.7.2.[id number] [facility] 2022-12-22 10:30:00 2022-12-22 10:46:35 Outpatient DANIEL APARICIO [facility] [id number] [facility] 2022-12-22 10:30:00 2022-12-22 10:46:35 Office Visit Daniel Castellon [facility] GLEASON?[facility] 1.2840.114 350.1.13.10 4.2.7.2.[id number] [facility] 2022-12-22 00:00:00 2022-12-22 00:00:00 Orders Only Doctor Unassigned, Dimmitt [facility] 1.2840.114 350.1.13.10 4.2.7.2.[id number] [facility] 2022-12-17 00:00:00 2022-12-17 00:00:00 Refill Witt Community HealthTAMELA GLEASON?MARISELA [facility] MEDICAL OFFICE BUILDING 1.2840.114 350.1.13.10 4.2.7.2.[id number] [facility] 2022-12-16 00:00:00 2022-12-16 00:00:00 Refill Witt, Community HealthTAMELA GLEASON?MARISELA [facility] MEDICAL OFFICE BUILDING 1.2840.114 350.1.13.10 4.2.7.2.[id number] [facility] 2022-12-15 00:00:00 2022-12-15 00:00:00 Refill Eduar Community HealthTAMELA GLEASON?MARISELA [facility] MEDICAL OFFICE BUILDING 1.2840.114 350.1.13.10 4.2.7.2.[id number] [facility] 2022-12-15 00:00:00 2022-12-15 00:00:00 Telephone [facility]?MARISELA [facility] MEDICAL OFFICE BUILDING 1.2840.114 350.1.13.10 4.2.7.2.[id number] [facility] 2022-12-11 00:00:00 2022-12-11 00:00:00 Telephone [facility]?MARISELA [facility] MEDICAL OFFICE BUILDING 1.2.840.114 350.1.13.10 4.2.7.2.[id number] [facility] 2022-12-10 00:00:00 2022-12-10 00:00:00 Telephone Eduar Jefferson [facility] MA[facility] M[facility]VALEUlices [facility] MEDICAL OFFICE BUILDING 1.2840.114 350.1.13.10 4.2.7.2.[id number] [facility] 2022-12-09 00:00:00 2022-12-09 00:00:00 Telephone Eduar [facility] MAURICIO?[facility] MEDICAL OFFICE BUILDING 1.2840.114 350.1.13.10 4.2.7.2.[id number] [facility] 2022-12-08 00:00:00 2022-12-08 00:00:00 Telephone Eduar [facility] MAURICIO?[facility] MEDICAL OFFICE BUILDING 1.2840.114 350.1.13.10 4.2.7.2.[id number] [facility] 2022-12-08 00:00:00 2022-12-08 00:00:00 Orders Only Doctor Unassigned, Dimmitt [facility] 1.2.840.114 350.1.13.10 4.2.7.2.[id number] [facility] 2022-12-06 00:00:00 2022-12-06 00:00:00 Marylou [facility]rose [facility] MED[facility] OFFICE BUILDING 1.2840.114 350.1.13.10 4.2.7.2.[id number] [facility] 2022-12-06 00:00:00 2022-12-06 00:00:00 Refill Eduar [facility] MAURICIO?MARISELA [facility] MEDICAL OFFICE BUILDING 1.840.114 350.1.13.10 4.2.7.2.[id number] [facility] 2022-12-03 08:45:00 2022-12-03 08:45:00 Outpatient JEFFERSON PEREZ [facility] [id number] [facility] 2022-12-03 00:00:00 2022-12-03 00:00:00 Telephone [facility] MED[facility] OFFICE BUILDING 1.840.114 350.1.13.10 4.2.7.2.[id number] [facility] 2022-12-01 00:00:00 2022-12-01 00:00:00 Telephone Giovany Antoine [facility] MED[facility] OFF[facility] BUILDING 1.840.114 350.1.13.10 4.2.7.2.[id number] [facility] 2022-11-27 10:30:00 2022-11-27 10:45:00 Rn Office Visit Lab, Fritz Witt [facility] MEDICAL OFFICE BUILDING 1.840.114 350.1.13.10 4.2.7.2.[id number] [facility] 2022-11-27 10:30:00 2022-11-27 10:30:00 Outpatient Hany WITT JEFFERSON [facility] [id number] [facility] 2022-11-27 10:00:00 2022-11-27 10:15:00 Office Visit Eduar [facility] MAURICIO?[facility] MEDICAL OFFICE BUILDING 1.840.114 350.1.13.10 4.2.7.2.[id number] [facility] 2022-11-25 00:00:00 2022-11-25 00:00:00 Orders Only Doctor Unassigned, Dimmitt [facility] 1.2.840.114 350.1.13.10 4.2.7.2.[id number] [facility] 2022-11-13 00:00:00 2022-11-13 00:00:00 Orders Only Doctor Unassigned, Dimmitt [facility] 1.2840.114 350.1.13.10 4.2.7.2.[id number] [facility] 2022-11-12 09:30:00 2022-11-12 09:45:52 Outpatient R JEFFERSON WITT [facility] [id number] [facility] 2022-11-12 09:30:00 2022-11-12 09:45:52 Office Visit [facility]ar [facility] MEDICAL OFFICE BUILDING 1.20.114 350.1.13.10 4.2.7.2.[id number] [facility] 2022-11-12 00:00:00 2022-11-12 00:00:00 Telephone Eduar [facility] MAURICIO?[facility] MEDICAL OFFICE BUILDING 1.2840.114 350.1.13.10 4.2.7.2.[id number] [facility] 2022-11-12 00:00:00 2022-11-12 00:00:00 Refill Eduar [facility] MAURICIO?[facility] MEDICAL OFFICE BUILDING 1.2840.114 350.1.13.10 4.2.7.2.[id number] [facility] 2022-11-10 09:20:00 2022-11-10 09:20:00 Outpatient R CLAUDIA PORTER [facility] [id number] [facility] 2022-11-07 00:00:00 2022-11-07 00:00:00 Telephone Eduar [facility] MARYVALEUlices [facility] MEDICAL OFFICE BUILDING 1.840.114 350.1.13.10 4.2.7.2.[id number] [facility] 2022-11-06 12:30:00 2022-11-06 12:30:00 Outpatient R WITTBASSAMJEFFERSON [facility] [id number] [facility] 2022-11-04 00:00:00 2022-11-04 00:00:00 Telephone Eduar [facility] MARYVALEUlices [facility] MEDICAL OFFICE BUILDING 1.840.114 350.1.13.10 4.2.7.2.[id number] [facility] 2022-11-04 00:00:00 2022-11-04 00:00:00 Patient Secure Msg Doctor Unassigned, Dimmitt [facility] 1.840.114 350.1.13.10 4.2.7.2.[id number] [facility] 2022-11-03 12:30:00 2022-11-03 12:30:00 Outpatient R JEFFERSON WITT [facility] [id number] [facility] 2022-10-30 11:30:00 2022-10-30 11:50:04 Outpatient R ROSETTE CONTRERAS [facility] [id number] [facility] 2022-10-30 11:30:00 2022-10-30 11:50:04 Office Visit Rosette Contreras [facility] MEDICAL OFFICE BUILDING 1.840.114 350.1.13.10 4.2.7.2.[id number] [facility] 2022-10-30 00:00:00 2022-10-30 00:00:00 Orders Only Doctor Unassigned, Dimmitt [facility] 1.2840.114 350.1.13.10 4.2.7.2.[id number] [facility] 2022-10-30 00:00:00 2022-10-30 00:00:00 Telephone Claudia Porter [facility] NAL BUILDING 1.284.114 350.1.13.10 4.2.7.2.[id number] [facility] 2022-10-29 08:30:00 2022-10-29 08:30:00 Outpatient R JEFFERSON WITT [facility] [id number] [facility] 2022-10-28 00:00:00 2022-10-28 00:00:00 Telephone [facility]?MARISELA [facility] MEDICAL OFFICE BUILDING 1.84.114 350.1.13.10 4.2.7.2.[id number] [facility] 2022-10-24 00:00:00 2022-10-24 00:00:00 Refill Eduar [facility] MAURICIO?[facility] MARYVALEUlices [facility] MEDICAL OFFICE BUILDING 1.84.114 350.1.13.10 4.2.7.2.[id number] [facility] 2022-10-23 00:00:00 2022-10-23 00:00:00 Telephone Eduar [facility] MAURICIO?[facility] OFFICE BUILDING 1.284.114 350.1.13.10 4.2.7.2.[id number] [facility] 2022-10-22 00:00:00 2022-10-22 00:00:00 Orders Only Doctor Unassigned, Dimmitt [facility] 1.2.840.114 350.1.13.10 4.2.7.2.[id number] [facility] 2022-10-20 00:00:00 2022-10-20 00:00:00 Telephone Witt [facility] 1.2840.114 350.1.13.10 4.2.7.2.[id number] [facility] 2022-10-16 00:00:00 2022-10-16 00:00:00 Telephone [facility] 1.2.114 350.1.13.10 4.2.7.2.[id number] [facility] 2022-10-15 00:00:00 2022-10-15 00:00:00 Refill Witt [facility] MARYVALEUlices [facility] MEDICAL OFFICE BUILDING 1.284.114 350.1.13.10 4.2.7.2.[id number] [facility] 2022-10-13 00:00:00 2022-10-13 00:00:00 Orders Only Doctor Unassigned, Dimmitt [facility] 1.2840.114 350.1.13.10 4.2.7.2.[id number] [facility] 2022-10-09 12:30:00 2022-10-09 12:30:00 Outpatient R ROSETTE CONTRERAS [facility] [id number] [facility] 2022-10-09 08:30:00 2022-10-09 08:30:00 Outpatient R ION HOBBS [facility] [id number] [facility] 2022-10-06 00:00:00 2022-10-06 00:00:00 Refill Eduar [facility] MEDICAL OFFICE BUILDING 1.2.840.114 350.1.13.10 4.2.7.2.[id number] [facility] 2022-10-03 00:00:00 2022-10-03 00:00:00 Telephone Claudia Porter [facility] BUILDING 1.2840.114 350.1.13.10 4.2.7.2.[id number] [facility] 2022-10-01 13:00:00 2022-10-01 13:00:00 Outpatient R CLAUDIA PORTER [facility] [id number] [facility] 2022-09-30 00:00:00 2022-09-30 00:00:00 Orders Only Doctor Unassigned, Dimmitt [facility] 1.2840.114 350.1.13.10 4.2.7.2.[id number] [facility] 2022-09-25 00:00:00 2022-09-25 00:00:00 Orders Only Doctor Unassigned, Dimmitt [facility] 1.2840.114 350.1.13.10 4.2.7.2.[id number] [facility] 2022-09-24 00:00:00 2022-09-24 00:00:00 Telephone Jefferson Witt [facility] 1.2840.114 350.1.13.10 4.2.7.2.[id number] [facility] 2022-09-23 00:00:00 2022-09-23 00:00:00 Telephone Jefferson Witt [facility] 1.2840.114 350.1.13.10 4.2.7.2.[id number] [facility] 2022-09-22 00:00:00 2022-09-22 00:00:00 Marylou Ambrose [facility] 1.2840.114 350.1.13.10 4.2.7.2.[id number] [facility] 2022-09-19 10:30:00 2022-09-19 10:30:00 Outpatient R GIOVANY ANTOINE [facility] [id number] [facility] 2022-09-19 00:00:00 2022-09-19 00:00:00 Orders Only Doctor Unassigned, Dimmitt [facility] 1.2840.114 350.1.13.10 4.2.7.2.[id number] [facility] 2022-09-18 00:00:00 2022-09-18 00:00:00 Telephone Giovany Antoine [facility] MAURICIO?[facility] MARYVALEUlices [facility] MEDICAL OFFICE BUILDING 1.84.114 350.1.13.10 4.2.7.2.[id number] [facility] 2022-09-17 00:00:00 2022-09-17 00:00:00 Telephone Eduar Jefferson [facility] 1.84.114 350.1.13.10 4.2.7.2.[id number] [facility] 2022-09-15 00:00:00 2022-09-15 00:00:00 Telephone Giovany Antoine [facility] MAURICIO?[facility] 1.2840.114 350.1.13.10 4.2.7.2.[id number] [facility] 2022-09-11 00:00:00 2022-09-11 00:00:00 Telephone Bassam Wittony [facility]?MARISELA [facility] MEDICAL OFFICE BUILDING 1.2840.114 350.1.13.10 4.2.7.2.[id number] [facility] 2022-09-10 09:00:00 2022-09-10 09:30:00 Office Visit [facility] 1.2840.114 350.1.13.10 4.2.7.2.[id number] [facility] 2022-09-10 09:00:00 2022-09-10 09:00:00 Outpatient R JEFFERSON WITT [facility] [id number] [facility] 2022-09-10 00:00:00 2022-09-10 00:00:00 [facility] MED[facility] OFFICE BUILDING 1.840.114 350.1.13.10 4.2.7.2.[id number] [facility] 2022-09-04 00:00:00 2022-09-04 00:00:00 Orders Only Doctor Unassigned, [place] [facility] 1.840.114 350.1.13.10 4.2.7.2.[id number] [facility] 2022-09-02 00:00:00 2022-09-02 00:00:00 [facility] 1.2840.114 350.1.13.10 4.2.7.2.[id number] [facility] 2022-09-02 00:00:00 2022-09-02 00:00:00 Telephone Eduar [facility]IC[facility] 1.2840.114 350.1.13.10 4.2.7.2.[id number] [facility] 2022-09-01 00:00:00 2022-09-01 00:00:00 Telephone [facility] 1.2.840.114 350.1.13.10 4.2.7.2.[id number] [facility] 2022-08-25 00:00:00 2022-08-25 00:00:00 Telephone Jefferson Witt [facility] 1.2.840.114 350.1.13.10 4.2.7.2.[id number] [facility] 2022-08-20 00:00:00 2022-08-20 00:00:00 Refill Eduar [facility]ELA [facility] 1.2.840.114 350.1.13.10 4.2.7.2.[id number] [facility] 2022-08-20 00:00:00 2022-08-20 00:00:00 Orders Only Doctor Unassigned, [place] [facility] 1.2.840.114 350.1.13.10 4.2.7.2.[id number] [facility] 2022-08-16 00:00:00 2022-08-16 00:00:00 Refill Marylou Gamino [facility] 1.2.840.114 350.1.13.10 4.2.7.2.[id number] [facility] 2022-08-16 00:00:00 2022-08-16 00:00:00 Refill Eduar Jefferson [facility] 1.2.840.114 350.1.13.10 4.2.7.2.[id number] [facility] 2022-08-14 00:00:00 2022-08-14 00:00:00 Telephone Jefferson Witt [facility] 1.2.840.114 350.1.13.10 4.2.7.2.[id number] [facility] 2022-08-11 00:00:00 2022-08-11 00:00:00 Orders Only Doctor Unassigned, [place] [facility] 1.2.840.114 350.1.13.10 4.2.7.2.[id number] [facility] 2022-08-09 00:00:00 2022-08-09 00:00:00 Telephone Jefferson Witt [facility] 1.2.840.114 350.1.13.10 4.2.7.2.[id number] [facility] 2022-08-08 00:00:00 2022-08-08 00:00:00 Telephone Jefferson Witt [facility] 1.2.840.114 350.1.13.10 4.2.7.2.[id number] [facility] 2022-08-08 00:00:00 2022-08-08 00:00:00 Telephone Jefferson Witt [facility]A [facility] 1.2.840.114 350.1.13.10 4.2.7.2.[id number] [facility] 2022-08-07 12:00:00 2022-08-07 12:15:00 Office Visit Jefferson Witt [facility] 1.2.840.114 350.1.13.10 4.2.7.2.[id number] [facility] 2022-08-07 12:00:2022-08-07 12:00:00 Outpatient JEFFERSON PEREZ [facility] [id number] [facility] 2022-08-03 00:00:00 2022-08-03 00:00:00 Nurse Triage Faustina Oleg Leach [facility] 1.2.840.114 350.1.13.10 4.2.7.2.[id number] [facility] 2022-08-03 00:00:00 2022-08-03 00:00:00 Orders Only Doctor Unassigned, [place] [facility] 1.2.840.114 350.1.13.10 4.2.7.2.[id number] [facility] 2022-07-29 00:00:00 2022-07-29 00:00:00 Refprabhjot Witt [facility] [place] OFF[facility] BUILDING 1.2.840.114 350.1.13.10 4.2.7.2.[id number] [facility] 2022-07-22 00:00:00 2022-07-22 00:00:00 RefMarylou Lerma [facility] MED[facility] OFFICE BUILDING 1.2.840.114 350.1.13.10 4.2.7.2.[id number] [facility] 2022-07-21 00:00:00 2022-07-21 00:00:00 Telephone Claudia Porter [facility] 1.2.840.114 350.1.13.10 4.2.7.2.[id number] [facility] 2022-07-19 13:12:00 2022-07-19 16:24:00 Emergency X JESUS SPAIN [facility] ERT [id number] [facility] 2022-07-19 13:12:00 2022-07-19 16:24:00 Emergency Jesus Spain [facility] 1.2840.114 350.1.13.10 4.2.7.2.[id number] [facility] 2022-07-17 00:00:00 2022-07-17 00:00:00 Telephone Jefferson Witt [facility] 1.2840.114 350.1.13.10 4.2.7.2.[id number] [facility] 2022-07-16 10:30:00 2022-07-16 11:00:00 Office Visit Rachell Cheng [facility] 1.2840.114 350.1.13.10 4.2.7.2.[id number] [facility] 2022-07-16 10:30:00 2022-07-16 10:30:00 [facility] [id number] [facility] 2022-07-15 00:00:00 2022-07-15 00:00:00 Telephone Jefferson Witt [facility] 1.20.114 350.1.13.10 4.2.7.2.[id number] [facility] 2022-07-14 00:00:00 2022-07-14 00:00:00 Telephone Claudia Porter [facility] 1.840.114 350.1.13.10 4.2.7.2.[id number] [facility] 2022-07-07 00:00:00 2022-07-07 00:00:00 Telephone Claudia Porter [facility] NAL BUILDING 1.2840.114 350.1.13.10 4.2.7.2.[id number] [facility] 2022-07-03 11:30:00 2022-07-03 11:30:00 Outpatient R ROSETTE CONTRERAS [facility] [id number] [facility] 2022-07-02 00:00:00 2022-07-02 00:00:00 [facility] 1.2840.114 350.1.13.10 4.2.7.2.[id number] [facility] 2022-06-30 00:00:00 2022-06-30 00:00:00 [facility]ill [facility]ar [facility] 1.840.114 350.1.13.10 4.2.7.2.[id number] [facility] 2022-06-30 00:00:00 2022-06-30 00:00:00 [facility]phone [facility] 1.84.114 350.1.13.10 4.2.7.2.[id number] [facility] 2022-06-25 00:00:00 2022-06-25 00:00:00 Telephone [facility]re[facility] 1.284.114 350.1.13.10 4.2.7.2.[id number] [facility] 2022-06-19 13:00:00 2022-06-19 13:15:00 Rn Office Visit [facility] Sleep Lab Rachell Cheng [facility] 1.2840.114 350.1.13.10 4.2.7.2.[id number] [facility] 2022-06-19 13:00:00 2022-06-19 13:00:00 Outpatient R CHRISHOARACHELL MARTINEZHOAMICHELLE [facility] [id number] [facility] 2022-06-19 00:00:00 2022-06-19 00:00:00 Orders Only Doctor Unassigned, Dimmitt [facility] 1.2.840.114 350.1.13.10 4.2.7.2.[id number] [facility] 2022-06-19 00:00:00 2022-06-19 00:00:00 Refill Eduar [facility] MED[facility] OFF[facility] BUILDING 1.2.840.114 350.1.13.10 4.2.7.2.[id number] [facility] 2022-06-18 13:00:00 2022-06-18 13:00:00 Outpatient R [facility] [id number] [facility] 2022-06-17 00:00:00 2022-06-17 00:00:00 Telephone Jefferson [facility] 1.2.840.114 350.1.13.10 4.2.7.2.[id number] [facility] 2022-06-17 00:00:00 2022-06-17 00:00:00 Patient Secure Msg Doctor Unassigned, Dimmitt [facility] MED[facility] OFF[facility] BUILDING 1.2.840.114 350.1.13.10 4.2.7.2.[id number] [facility] 2022-06-16 11:44:53 2022-06-16 11:44:53 Outpatient [facility] [id number] Glen Gutierrez 2022-06-16 00:00:00 2022-06-16 00:00:00 Telephone Claudia Porter [facility] 1.2.840.114 350.1.13.10 4.2.7.2.[id number] [facility] 2022-06-13 11:15:00 2022-06-13 11:30:00 Rn Office Visit 2, Adc Lab Claudia Porter [facility] 1.2.840.114 350.1.13.10 4.2.7.2.[id number] [facility] 2022-06-13 11:15:00 2022-06-13 11:15:00 Outpatient R CLAUDIA PORTER [facility] [id number] [facility] 2022-06-12 00:00:00 2022-06-12 00:00:00 Telephone Claudia Porter [facility] 1.2.840.114 350.1.13.10 4.2.7.2.[id number] [facility] 2022-06-12 00:00:00 2022-06-12 00:00:00 Telephone Jefferson Witt [facility] 1.2.840.114 350.1.13.10 4.2.7.2.[id number] [facility] 2022-06-11 10:08:55 2022-06-11 23:59:00 Outpatient R JEFFERSON WITT [facility] [id number] [facility] 2022-06-11 10:08:55 2022-06-11 23:59:00 Hospital Encounter Jefferson Witt [facility] 1.2.840.114 350.1.13.10 4.2.7.2.[id number] [facility] 2022-06-10 14:20:00 2022-06-10 16:26:04 Outpatient R CLAUDIA PORTER [facility] [id number] [facility] 2022-06-10 14:20:00 2022-06-10 16:26:04 Office Visit Claudia Porter [facility] PROFESS[facility] NAL BUILDING 1.2.84.114 350.1.13.10 4.2.7.2.[id number] [facility] 2022-06-05 00:00:00 2022-06-05 00:00:00 Refill Marylou Gamino [facility] OFFICE BUILDING 1.84.114 350.1.13.10 4.2.7.2.[id number] [facility] 2022-06-04 10:30:00 2022-06-04 11:55:43 Outpatient R ROSETTE CONTRERAS [facility] [id number] [facility] 2022-06-04 10:30:00 2022-06-04 11:55:43 Office Visit Rosette Contreras Ulices [facility] OFF[facility] BUILDING 1.84.114 350.1.13.10 4.2.7.2.[id number] [facility] 2022-06-04 00:00:00 2022-06-04 00:00:00 Refill Jefferson Witt [facility] MEDICAL OFFICE BUILDING 1.284.114 350.1.13.10 4.2.7.2.[id number] [facility] 2022-05-29 10:17:00 2022-05-29 14:59:00 Emergency X DAYLIN MOJICA [facility] ERT [id number] [facility] 2022-05-29 10:17:00 2022-05-29 14:59:00 Emergency Daylin Mojica G [facility] 1.284.114 350.1.13.10 4.2.7.2.[id number] [facility] 2022-05-29 00:00:00 2022-05-29 00:00:00 [facility] MEDICAL OFFICE BUILDING 1.2.840.114 350.1.13.10 4.2.7.2.[id number] [facility] 2022-05-29 00:00:00 2022-05-29 00:00:00 Refill Eduar Jefferson [facility]ARYVAL[facility] MEDICAL OFFICE BUILDING 1.2.840.114 350.1.13.10 4.2.7.2.[id number] [facility] 2022-05-27 00:00:00 2022-05-27 00:00:00 Telephone Jefferson [facility] MEDICAL OFFICE BUILDING 1.2.840.114 350.1.13.10 4.2.7.2.[id number] [facility] 2022-05-27 00:00:00 2022-05-27 00:00:00 Telephone Team, [facility] 1.2.840.114 350.1.13.10 4.2.7.2.[id number] [facility] 2022-05-23 16:30:00 2022-05-23 17:15:04 Outpatient R GIOVANY ANTOINE [facility] [id number] [facility] 2022-05-23 16:30:00 2022-05-23 17:15:04 Office Visit Giovany Antoine [facility] MEDICAL OFFICE BUILDING 1.2.840.114 350.1.13.10 4.2.7.2.[id number] [facility] 2022-05-23 16:30:00 2022-05-23 16:30:00 Outpatient R GIOVANY ANTOINE [facility] [id number] [facility] 2022-05-23 00:00:00 2022-05-23 00:00:00 Refill Marylou Gamino [facility] 1.2.840.114 350.1.13.10 4.2.7.2.[id number] [facility] 2022-05-23 00:00:00 2022-05-23 00:00:00 Refill Eduar Jefferson [facility] 1.2.840.114 350.1.13.10 4.2.7.2.[id number] [facility] 2022-05-20 00:00:00 2022-05-20 00:00:00 Refill Eduar Jefferson [facility] 1.2.840.114 350.1.13.10 4.2.7.2.[id number] [facility] 2022-05-08 12:00:00 2022-05-08 12:18:22 Outpatient R JEFFERSON WITT [facility] [id number] [facility] 2022-05-08 12:00:00 2022-05-08 12:18:22 Office Visit Eduar Jefferson [facility] 1.2.840.114 350.1.13.10 4.2.7.2.[id number] [facility] 2022-05-08 12:00:00 2022-05-08 12:00:00 Outpatient R JEFFERSON WITT [facility] [id number] [facility] 2022-05-08 00:00:00 2022-05-08 00:00:00 [facility] 1.2840.114 350.1.13.10 4.2.7.2.[id number] [facility] 2022-05-08 00:00:00 2022-05-08 00:00:00 Orders Only Doctor Unassigned, Dimmitt [facility] 1.2840.114 350.1.13.10 4.2.7.2.[id number] [facility] 2022-05-07 00:00:00 2022-05-07 00:00:00 Refill Eduar Jefferson [facility] MEDICAL OFFICE BUILDING 1.2.114 350.1.13.10 4.2.7.2.[id number] [facility] 2022-05-06 00:00:00 2022-05-06 00:00:00 Refill Eduar [facility]IC[facility] MEDICAL OFFICE BUILDING 1.0.114 350.1.13.10 4.2.7.2.[id number] [facility] 2022-04-29 00:00:00 2022-04-29 00:00:00 Refill Marylou Gamino [facility] MEDICAL OFFICE BUILDING 1.2840.114 350.1.13.10 4.2.7.2.[id number] [facility] 2022-04-24 00:00:00 2022-04-24 00:00:00 Outpatient JEFFERSON PEREZ [facility] [id number] [facility] 2022-04-24 00:00:00 2022-04-24 00:00:00 Refprabhjot Witt [facility] MA[facility]ICIO?[facility] MEDICAL OFFICE BUILDING 1.2840.114 350.1.13.10 4.2.7.2.[id number] [facility] 2022-04-23 00:00:00 2022-04-23 00:00:00 [facility] MEDICAL OFFICE BUILDING 1.2.840.114 350.1.13.10 4.2.7.2.[id number] [facility] 2022-04-23 00:00:00 2022-04-23 00:00:00 [facility]ill [facility]ar [facility] MEDICAL OFFICE BUILDING 1.2.840.114 350.1.13.10 4.2.7.2.[id number] [facility] 2022-04-09 00:00:00 2022-04-09 00:00:00 Refill Eduar [facility]IC[facility] MEDICAL OFFICE BUILDING 1..840.114 350.1.13.10 4.2.7.2.[id number] [facility] 2022-04-08 00:00:00 2022-04-08 00:00:00 Telephone Eduar [facility]ICIO?[facility] MEDICAL OFFICE BUILDING 1.2.840.114 350.1.13.10 4.2.7.2.[id number] [facility] 2022-03-31 00:00:00 2022-03-31 00:00:00 Refill Eduar [facility]IC[facility] MEDICAL OFFICE BUILDING 1.2.840.114 350.1.13.10 4.2.7.2.[id number] [facility] 2022-03-27 13:20:00 2022-03-27 13:20:00 Outpatient R JEFFERSON WITT [facility] [id number] [facility] 2022-03-26 00:00:00 2022-03-26 00:00:00 Refill Eduar [facility]?MARISELA [facility] MEDICAL OFFICE BUILDING 1.2840.114 350.1.13.10 4.2.7.2.[id number] [facility] 2022-03-11 00:00:00 2022-03-11 00:00:00 Refill Jefferson Witt [facility] MARYVALEUlices [facility] MEDICAL OFFICE BUILDING 1.2840.114 350.1.13.10 4.2.7.2.[id number] [facility] 2022-03-06 00:00:00 2022-03-06 00:00:00 Telephone Jefferson Witt [facility]?MARISELA [facility] MEDICAL OFFICE BUILDING 1.2840.114 350.1.13.10 4.2.7.2.[id number] [facility] 2022-03-01 00:00:00 2022-03-01 00:00:00 Refill Eduar [facility] MEDICAL OFFICE BUILDING 1.2840.114 350.1.13.10 4.2.7.2.[id number] [facility] 2022-02-27 00:00:00 2022-02-27 00:00:00 Refill DelfinoMarylou [facility] MEDICAL OFFICE BUILDING 1.2840.114 350.1.13.10 4.2.7.2.[id number] [facility] 2022-02-26 00:00:00 2022-02-26 00:00:00 Telephone Antoine, Giovany Taylor [facility] MEDICAL OFFICE BUILDING 1.284.114 350.1.13.10 4.2.7.2.[id number] [facility] 2022-02-24 00:00:00 2022-02-24 00:00:00 Telephone Jefferson Witt [facility]?MARISELA [facility] MEDICAL OFFICE BUILDING 1.84.114 350.1.13.10 4.2.7.2.[id number] [facility] 2022-02-24 00:00:00 2022-02-24 00:00:00 Refill [facility]?MARISELA [facility] MEDICAL OFFICE BUILDING 1..114 350.1.13.10 4.2.7.2.[id number] [facility] 2022-02-21 10:45:00 2022-02-21 10:45:00 Outpatient ARMINDA COLLAZO [facility] [id number] [facility] 2022-02-11 00:00:00 2022-02-11 00:00:00 Telephone Eduar [facility] MA[facility]ICIO?[facility] MEDICAL OFFICE BUILDING 1.114 350.1.13.10 4.2.7.2.[id number] [facility] 2022-02-10 00:00:00 2022-02-10 00:00:00 Telephone Eduar [facility]?MARISELA [facility] MEDICAL OFFICE BUILDING 1.84.114 350.1.13.10 4.2.7.2.[id number] [facility] 2022-02-05 09:45:00 2022-02-05 10:02:08 Outpatient R JEFFERSON WITT [facility] [id number] [facility] 2022-02-05 09:45:00 2022-02-05 10:02:08 Office Visit Eduar [facility]?MARISELA [facility] MEDICAL OFFICE BUILDING 1.84.114 350.1.13.10 4.2.7.2.[id number] [facility] 2022-02-05 00:00:00 2022-02-05 00:00:00 Refill Eduar Jefferson [facility] MARYVALEUlices [facility] MEDICAL OFFICE BUILDING 1..114 350.1.13.10 4.2.7.2.[id number] [facility] 2022-02-05 00:00:00 2022-02-05 00:00:00 Refill Jefferson iWtt [facility] MEDICAL OFFICE BUILDING 1..114 350.1.13.10 4.2.7.2.[id number] [facility] 2022-02-05 00:00:00 2022-02-05 00:00:00 Telephone Noemi Waite [facility] MEDICAL OFFICE BUILDING 1.114 350.1.13.10 4.2.7.2.[id number] [facility] 2022-02-05 00:00:00 2022-02-05 00:00:00 Orders Only Doctor Unassigned, Dimmitt [facility] 1..114 350.1.13.10 4.2.7.2.[id number] [facility] 2022-01-31 00:00:00 2022-01-31 00:00:00 Refill Giovany Antoine [facility] MEDICAL OFFICE BUILDING 1.114 350.1.13.10 4.2.7.2.[id number] [facility] 2022-01-27 00:00:00 2022-01-27 00:00:00 Refill Nora Morrow [facility] MEDICAL OFFICE BUILDING 1.114 350.1.13.10 4.2.7.2.[id number] [facility] 2022-01-26 00:00:00 2022-01-26 00:00:00 Doniprabhjot Giovany Antoine Claudia [facility] 1.2.840.114 350.1.13.10 4.2.7.2.[id number] [facility] 2022-01-24 15:30:00 2022-01-24 15:30:00 Outpatient GIOVANY GOTTI [facility] [id number] [facility] 2022-01-24 15:30:00 2022-01-24 15:30:00 Outpatient GIOVANY GOTTI [facility] [id number] [facility] 2022-01-13 00:00:00 2022-01-13 00:00:00 Telephone Jefferson Witt [facility] MARYVALEUlices [facility] MEDICAL OFFICE BUILDING 1.2.840.114 350.1.13.10 4.2.7.2.[id number] [facility] 2022-01-10 15:30:00 2022-01-10 15:30:00 Outpatient R GIOVANY ANTOINE [facility] [id number] [facility] 2022-01-09 10:30:00 2022-01-09 10:37:24 Outpatient R NOEMI WAITE [facility] [id number] [facility] 2022-01-09 10:30:00 2022-01-09 10:37:24 Office Visit Noemi Waite [facility]MARISELA [facility] MEDICAL OFFICE BUILDING 1.2.840.114 350.1.13.10 4.2.7.2.[id number] [facility] 2022-01-09 10:30:00 2022-01-09 10:37:24 Outpatient R NOEMI WAITE [facility] [id number] [facility] 2022-01-02 10:30:00 2022-01-02 10:45:00 Office Visit [facility] 1..840.114 350.1.13.10 4.2.7.2.[id number] [facility] 2022-01-02 10:30:00 2022-01-02 10:30:00 Outpatient R MARIANN NOEMI [facility] [id number] [facility] 2022-01-02 10:30:00 2022-01-02 10:30:00 Outpatient R MARIANN NOEMI [facility] [id number] [facility] 2021-12-31 00:00:00 2021-12-31 00:00:00 Refill Eduar [facility] 1..840.114 350.1.13.10 4.2.7.2.[id number] [facility] 2021-12-31 00:00:00 2021-12-31 00:00:00 Refill Eduar [facility] 1..840.114 350.1.13.10 4.2.7.2.[id number] [facility] 2021-12-26 14:00:00 2021-12-26 14:37:45 Outpatient R NOEMI WAITE [facility] [id number] [facility] 2021-12-26 14:00:00 2021-12-26 14:37:45 Office Visit Noemi Waite [facility] 1..840.114 350.1.13.10 4.2.7.2.[id number] [facility] 2021-12-26 00:00:00 2021-12-26 00:00:00 Telephone Giovany Antoine [facility] 1..840.114 350.1.13.10 4.2.7.2.[id number] [facility] 2021-12-26 00:00:00 2021-12-26 00:00:00 Telephone Giovany Antoine [facility] 1..840.114 350.1.13.10 4.2.7.2.[id number] [facility] 2021-12-25 00:00:00 2021-12-25 00:00:00 Refill Eduar Jefferson [facility] 1..840.114 350.1.13.10 4.2.7.2.[id number] [facility] 2021-12-19 10:15:00 2021-12-19 11:07:04 Outpatient R DILAN LOVE [facility] [id number] [facility] 2021-12-19 10:15:00 2021-12-19 11:07:04 Office Visit Dilan Love [facility] 1.2.840.114 350.1.13.10 4.2.7.2.[id number] [facility] 2021-12-17 00:00:00 2021-12-17 00:00:00 Telephone Eduar Jefferson [facility] 1.2.840.114 350.1.13.10 4.2.7.2.[id number] [facility] 2021-12-12 10:15:00 2021-12-12 11:10:34 Outpatient R NOEMI WAITE [facility] [id number] [facility] 2021-12-12 10:15:00 2021-12-12 11:10:34 [facility] 1.2.840.114 350.1.13.10 4.2.7.2.[id number] [facility] 2021-12-12 10:15:00 2021-12-12 11:10:34 Outpatient NOEMI ZAIDI [facility] [id number] [facility] 2021-12-12 10:15:00 2021-12-12 10:15:00 Outpatient NOEMI ZAIDI [facility] [id number] [facility] 2021-12-11 00:00:00 2021-12-11 00:00:00 Telephone [facility] 1.2.840.114 350.1.13.10 4.2.7.2.[id number] [facility] 2021-12-10 10:00:00 2021-12-10 10:15:00 Rn Office Visit Lab, Fritz Witt [facility] MED[facility] OFF[facility]ILD[facility] 1.2.840.114 350.1.13.10 4.2.7.2.[id number] [facility] 2021-12-10 10:00:00 2021-12-10 10:00:00 Outpatient JEFFERSON PEREZ [facility] [id number] [facility] 2021-12-10 09:45:00 2021-12-10 10:00:00 Office Visit Eduar Jefferson [facility] 1.2.840.114 350.1.13.10 4.2.7.2.[id number] [facility] 2021-12-10 09:45:00 2021-12-10 09:45:00 Outpatient Hany EDUAR JEFFERSON [facility] [id number] [facility] 2021-12-05 14:15:00 2021-12-05 14:30:00 Office Visit Noemi Waite [facility] 1.20.114 350.1.13.10 4.2.7.2.[id number] [facility] 2021-12-05 14:15:00 2021-12-05 14:15:00 Outpatient R NOEMI WAITE [facility] [id number] [facility] 2021-12-05 14:15:00 2021-12-05 14:15:00 Outpatient R NOEMI WAITE [facility] [id number] [facility] 2021-12-05 00:00:00 2021-12-05 00:00:00 Orders Only Doctor Unassigned, [place] 1.20.114 350.1.13.10 4.2.7.2.[id number] [facility] 2021-12-02 00:00:00 2021-12-02 00:00:00 Refill Eduar [facility] OFFICE BUILD[facility] 1.20.114 350.1.13.10 4.2.7.2.[id number] [facility] 2021-12-01 00:00:00 2021-12-01 00:00:00 Refill Marylou Gamino [facility] 1.20.114 350.1.13.10 4.2.7.2.[id number] [facility] 2021-12-01 00:00:00 2021-12-01 00:00:00 Refill Eduar Jefferson [facility] 1.2840.114 350.1.13.10 4.2.7.2.[id number] [facility] [facility] 2021-11-27 00:00:00 2021-11-27 00:00:00 Orders Only Doctor Unassigned, Dimmitt [facility] 1.2.840.114 350.1.13.10 4.2.7.2.[id number] [facility] 2021-11-26 00:00:00 2021-11-26 00:00:00 [facility]?MARISELA [facility] MEDICAL OFFICE BUILDING 1.2.840.114 350.1.13.10 4.2.7.2.[id number] [facility] 2021-11-25 00:00:00 2021-11-25 00:00:00 Telephone Eduar [facility] MAURICIO?MARISELA [facility] MEDICAL OFFICE BUILDING 1.2.840.114 350.1.13.10 4.2.7.2.[id number] [facility] 2021-11-25 00:00:00 2021-11-25 00:00:00 Telephone Eduar Jefferson [facility] MAURICIO?[facility] MARYVALEUlices [facility] MEDICAL OFFICE BUILDING 1.2.840.114 350.1.13.10 4.2.7.2.[id number] [facility] 2021-11-20 00:00:00 2021-11-20 00:00:00 Telephone Noemi Waite [facility] MAURICIO?MARISELA [facility] MEDICAL OFFICE BUILDING 1.2.840.114 350.1.13.10 4.2.7.2.[id number] [facility] 2021-11-19 13:30:00 2021-11-19 13:45:00 Office Visit Mariann [facility] MAURICIO?MARISELA [facility] MEDICAL OFFICE BUILDING 1.2.840.114 350.1.13.10 4.2.7.2.[id number] [facility] 2021-11-19 13:30:00 2021-11-19 13:30:00 Outpatient R NOEMI WAITE [facility] [id number] [facility] 2021-11-13 09:45:00 2021-11-13 09:54:37 Office Visit Eduar [facility] MAURICIO?MARISELA [facility] OFF[facility] BUILDING 1.840.114 350.1.13.10 4.2.7.2.[id number] [facility] 2021-11-13 09:45:00 2021-11-13 09:54:37 Outpatient R JEFFERSON WITT [facility] [id number] [facility] 2021-11-13 09:45:00 2021-11-13 09:45:00 Outpatient R JEFFERSON WITT [facility] [id number] [facility] 2021-11-13 09:45:00 2021-11-13 09:45:00 Outpatient R JEFFERSON WITT [facility] [id number] [facility] 2021-11-12 00:00:00 2021-11-12 00:00:00 Refill Eduar [facility] OFFICE BUILDING ONE 1.84.114 350.1.13.10 4.2.7.2.[id number] [facility] 2021-11-11 00:00:00 2021-11-11 00:00:00 Refill Marylou Gamino [facility] MAURICIO?[facility] MARYVALEUlices [facility] MEDICAL OFFICE BUILDING 1.84.114 350.1.13.10 4.2.7.2.[id number] [facility] 2021-11-04 00:00:00 2021-11-04 00:00:00 Refill Eduar [facility] MAURICIO?MARISELA [facility] OFFICE BUILDING 1.84.114 350.1.13.10 4.2.7.2.[id number] [facility] 2021-11-01 00:00:00 2021-11-01 00:00:00 Refill Marylou Gamino [facility] MAURICIO?MARISELA [facility] MEDICAL OFFICE BUILDING 1.2.840.114 350.1.13.10 4.2.7.2.[id number] [facility] 2021-10-31 00:00:00 2021-10-31 00:00:00 Refill Eduar [facility] MAURICIO?[facility] MARYVALEUlices [facility] MEDICAL OFFICE BUILDING 1..840.114 350.1.13.10 4.2.7.2.[id number] [facility] 2021-10-21 00:00:00 2021-10-21 00:00:00 Telephone Jefferson Witt [facility] MAURICIO?[facility] MEDICAL OFFICE BUILDING 1..840.114 350.1.13.10 4.2.7.2.[id number] [facility] 2021-10-10 00:00:00 2021-10-10 00:00:00 Telephone Mariann Noemi [facility] MAURICIO?[facility] MEDICAL OFFICE BUILDING 1..840.114 350.1.13.10 4.2.7.2.[id number] [facility] 2021-10-07 12:15:00 2021-10-07 12:15:00 Outpatient R JEFFERSON WITT [facility] [id number] [facility] 2021-10-02 14:45:00 2021-10-02 15:30:28 Outpatient R NOEMI WAITE [facility] [id number] [facility] 2021-10-02 14:45:00 2021-10-02 15:15:00 Office Visit Mariann Noemi [facility] MAURICIO?[facility] MEDICAL OFFICE BUILDING 1.840.114 350.1.13.10 4.2.7.2.[id number] [facility] 2021-10-02 14:45:00 2021-10-02 14:45:00 Outpatient R NOEMI WAITE [facility] [id number] [facility] 2021-10-02 00:00:00 2021-10-02 00:00:00 Refill Eduar [facility] OFFICE BUILDING ONE 1..840.114 350.1.13.10 4.2.7.2.[id number] [facility] 2021-09-20 10:30:00 2021-09-20 10:45:00 Rn Office Visit Lab, Fritz Witt [facility] MAURICIO?MARISELA [facility] OFFICE BUILDING 1..840.114 350.1.13.10 4.2.7.2.[id number] [facility] 2021-09-20 10:30:00 2021-09-20 10:30:00 [id number] [facility] 2021-09-19 10:30:00 2021-09-19 10:30:00 Outpatient R [facility] [id number] [facility] 2021-09-17 00:00:00 2021-09-17 00:00:00 Telephone Jefferson Witt [facility] MAURICIO?ERIUlices [facility] MEDICAL OFFICE BUILDING 1.840.114 350.1.13.10 4.2.7.2.[id number] [facility] 2021-09-17 00:00:00 2021-09-17 00:00:00 Telephone Eduar [facility] MAURICIO?[facility] MARYVALEUlices [facility] MEDICAL OFFICE BUILDING 1..840.114 350.1.13.10 4.2.7.2.[id number] [facility] 2021-09-13 10:30:00 2021-09-13 10:30:00 Outpatient R WITT, JEFFERSON [facility] [id number] [facility] 2021-09-12 12:00:00 2021-09-12 12:00:00 Outpatient JEFFERSON PEREZ [facility] [id number] [facility] 2021-09-12 10:15:00 2021-09-12 10:30:00 Office Visit Jefferson Witt [facility] OFF[facility] BUILDING 1.2.840.114 350.1.13.10 4.2.7.2.[id number] [facility] 2021-09-12 10:15:00 2021-09-12 10:15:00 Outpatient JEFFERSON PEREZ [facility] [id number] [facility] 2021-09-12 10:15:00 2021-09-12 10:15:00 Outpatient JEFFERSON PEREZ [facility] [id number] [facility] 2021-09-12 00:00:00 2021-09-12 00:00:00 Telephone Giovany Antoine [facility] MEDICAL OFFICE BUILDING 1.2.840.114 350.1.13.10 4.2.7.2.[id number] [facility] 2021-09-10 10:30:00 2021-09-10 11:01:21 Outpatient R MARYLOU GAMINO [facility] [id number] [facility] 2021-09-10 10:30:00 2021-09-10 11:01:21 Office Visit Zahraa [facility]MARISELA [facility] MEDICAL OFFICE BUILDING 1.2.840.114 350.1.13.10 4.2.7.2.[id number] [facility] 2021-09-10 10:30:00 2021-09-10 11:01:21 Outpatient R MARYLOU GAMINO [facility] [id number] [facility] 2021-09-10 10:30:00 2021-09-10 10:30:00 [id number] 2021-09-10 10:30:00 2021-09-10 10:30:00 [facility] [id number] [facility] 2021-09-10 10:30:00 2021-09-10 10:30:00 [facility] [id number] [facility] 2021-09-10 10:30:00 2021-09-10 10:30:00 [facility] [id number] [facility] 2021-09-04 00:00:00 2021-09-04 00:00:00 Refill Eduar [facility] MEDICAL OFFICE BUILDING 1.2.840.114 350.1.13.10 4.2.7.2.[id number] [facility] 2021-09-03 14:14:00 2021-09-03 16:13:00 Emergency X PRAVEEN SAGE [facility] ERT [id number] [facility] 2021-09-03 14:14:00 2021-09-03 16:13:00 Emergency Praveen Sage R [facility] 1.2.840.114 350.1.13.10 4.2.7.2.[id number] [facility] 2021-09-03 00:00:00 2021-09-03 00:00:00 [facility] MEDICAL OFFICE BUILDING 1.2.840.114 350.1.13.10 4.2.7.2.[id number] [facility] 2021-09-02 00:00:00 2021-09-02 00:00:00 Viktoriya Witt [facility] PROFJUANIO [facility] OFFICE BUILDING ONE 1.114 350.1.13.10 4.2.7.2.[id number] [facility] 2021-09-02 00:00:00 2021-09-02 00:00:00 Refill Eduar [facility] MAURICIO?ERIUlices [place] [facility] OFF[facility] BUILDING 1.114 350.1.13.10 4.2.7.2.[id number] [facility] 2021-08-31 00:00:00 2021-08-31 00:00:00 Patient Secure Msg Doctor Unassigned, Dimmitt [facility] 1.114 350.1.13.10 4.2.7.2.[id number] [facility] 2021-08-29 11:45:00 2021-08-29 12:00:00 [facility] 1.114 350.1.13.10 4.2.7.2.[id number] [facility] 2021-08-29 11:45:00 2021-08-29 11:45:00 Outpatient R JEFFERSON WITT [facility] [id number] [facility] 2021-08-28 00:00:00 2021-08-28 00:00:00 Nora Badillo [facility] PROFJUANIO [facility] OFFICE BUILDING ONE 1.114 350.1.13.10 4.2.7.2.[id number] [facility] 2021-08-15 10:45:00 2021-08-15 11:00:00 Rn Office Visit Lab, Ang - Erik Witt [facility] MAURICIO?ERIUlices [place] [facility] OFF[facility]ILD[facility] 1.114 350.1.13.10 4.2.7.2.[id number] [facility] 2021-08-15 10:45:00 2021-08-15 10:45:00 Outpatient JEFFERSON PEREZ [facility] [id number] [facility] 2021-08-15 10:00:00 2021-08-15 10:15:00 [facility] MEDICAL OFFICE BUILDING 1..840.114 350.1.13.10 4.2.7.2.[id number] [facility] 2021-08-15 10:00:00 2021-08-15 10:00:00 Outpatient JEFFERSON PEREZ [facility] [id number] [facility] 2021-08-15 10:00:00 2021-08-15 10:00:00 Outpatient BASSAM PEREZONY [facility] [id number] [facility] 2021-08-15 10:00:00 2021-08-15 10:00:00 Outpatient JEFFEROSN PEREZ [facility] [id number] [facility] 2021-08-15 00:00:00 2021-08-15 00:00:00 Orders Only Doctor Unassigned, [place]immitt [facility] 1..840.114 350.1.13.10 4.2.7.2.[id number] [facility] 2021-08-12 10:00:00 2021-08-12 10:00:00 Outpatient BASSAM PEREZONY [facility] [id number] [facility] 2021-08-12 10:00:00 2021-08-12 10:00:00 Outpatient Hany WITT JEFFERSON [facility] [id number] [facility] 2021-08-07 00:00:00 2021-08-07 00:00:00 Telephone Brian Ventura [facility] BUILDING 1..840.114 350.1.13.10 4.2.7.2.[id number] [facility] 2021-08-06 00:00:00 2021-08-06 00:00:00 Jefferson Katz [facility] OFFICE BUILDING ONE 1.2.840.114 350.1.13.10 4.2.7.2.[id number] [facility] 2021-08-06 00:00:00 2021-08-06 00:00:00 Telephone Brian Ventura [facility] BUILDING 1.2.840.114 350.1.13.10 4.2.7.2.[id number] [facility] 2021-08-05 09:54:13 2021-08-05 23:59:00 Outpatient R BRIAN VENTURA [facility] [id number] [facility] 2021-08-05 09:54:13 2021-08-05 23:59:00 Hospital Encounter Brian Ventura [facility] BUILDING 1.2.840.114 350.1.13.10 4.2.7.2.[id number] [facility] 2021-08-02 15:30:00 2021-08-02 15:45:00 Laboratory Only Only, Adc Test [facility] 1.2.840.114 350.1.13.10 4.2.7.2.[id number] [facility] 2021-08-02 15:30:00 2021-08-02 15:30:00 Outpatient Hany [facility] [id number] [facility] 2021-07-22 00:00:00 2021-07-22 00:00:00 Viktoriya Witt [facility] MAURICIO?[facility] OFF[facility] BUILDING 1.2.840.114 350.1.13.10 4.2.7.2.[id number] [facility] 2021-07-16 00:00:00 2021-07-16 00:00:00 Telephone Jefferson Witt [facility] OFF[facility] BUILDING 1.2.840.114 350.1.13.10 4.2.7.2.[id number] [facility] 2021-07-10 09:30:00 2021-07-10 09:30:00 Outpatient R JEFFERSON WITT [facility] [id number] [facility] 2021-07-09 00:00:00 2021-07-09 00:00:00 Telephone Jefferson Witt [facility]?MARISELA [facility] MEDICAL OFFICE BUILDING 1.2.840.114 350.1.13.10 4.2.7.2.[id number] [facility] 2021-07-08 00:00:00 2021-07-08 00:00:00 Telephone Jefferson Witt [facility]?MARISELA [facility] MEDICAL OFFICE BUILDING 1.2.840.114 350.1.13.10 4.2.7.2.[id number] [facility] 2021-07-03 15:09:59 2021-07-03 15:24:59 Office Visit Jefferson Witt [facility] 1.2.840.114 350.1.13.10 4.2.7.2.[id number] [facility] 2021-07-03 15:15:00 2021-07-03 15:15:00 Outpatient R JEFFERSON WITT [facility] [id number] [facility] 2021-07-03 00:00:00 2021-07-03 00:00:00 Jefferson Katz [facility] NAL OFFICE BUILDING ONE 1.84.114 350.1.13.10 4.2.7.2.[id number] [facility] 2021-07-01 00:00:00 2021-07-01 00:00:00 Telephone Eduar [facility] MAURICIO?[facility]A [facility] OFF[facility] BUILDING 1.2840.114 350.1.13.10 4.2.7.2.[id number] [facility] 2021-06-26 00:00:00 2021-06-26 00:00:00 Jefferson Katz [facility] MAURICIO?MARISELA [facility] MEDICAL OFFICE BUILDING 1..114 350.1.13.10 4.2.7.2.[id number] [facility] 2021-06-26 00:00:00 2021-06-26 00:00:00 Telephone Eduar [facility] MAURICIO?MARISELA [facility] MEDICAL OFFICE BUILDING 1..114 350.1.13.10 4.2.7.2.[id number] [facility] 2021-06-24 09:00:00 2021-06-24 09:00:00 Outpatient R JEFFERSON WITT [facility] [id number] [facility] 2021-06-24 00:00:00 2021-06-24 00:00:00 Telephone Eduar [facility] MAURICIO?MARISELA [facility] MEDICAL OFFICE BUILDING 1.84.114 350.1.13.10 4.2.7.2.[id number] [facility] 2021-06-20 00:00:00 2021-06-20 00:00:00 Telephone Eduar [facility] MAURICIO?MARISELA [facility] OFF[facility] BUILDING 1.0.114 350.1.13.10 4.2.7.2.[id number] [facility] 2021-06-19 12:00:00 2021-06-19 12:00:00 Outpatient R JEFFERSON WITT [facility] [id number] [facility] 2021-06-19 10:09:29 2021-06-19 10:24:29 Rn Office Visit Lab, Ang - Erik Eduar [facility]ISELA [facility] OFFICE BUILDING 1.84.114 350.1.13.10 4.2.7.2.[id number] [facility] 2021-06-19 09:41:59 2021-06-19 10:11:59 Office Visit Eduar [facility] BUILD[facility] 1.84.114 350.1.13.10 4.2.7.2.[id number] [facility] 2021-06-19 10:00:00 2021-06-19 10:00:00 Outpatient R JEFFERSON WITT [facility] [id number] [facility] 2021-06-18 00:00:00 2021-06-18 00:00:00 Telephone [facility] 1.84.114 350.1.13.10 4.2.7.2.[id number] [facility] 2021-06-11 14:40:00 2021-06-11 14:40:00 Outpatient R ROBBIE CORONADO [facility] [id number] [facility] 2021-06-10 00:00:00 2021-06-10 00:00:00 Nora Badillo [facility] OFFICE BUILDING ONE 1.84.114 350.1.13.10 4.2.7.2.[id number] [facility] 2021-06-10 00:00:00 2021-06-10 00:00:00 Telephone Eduar [facility] DEVONTE [facility] MEDICAL OFFICE BUILDING 1..840.114 350.1.13.10 4.2.7.2.[id number] [facility] 2021-06-09 00:00:00 2021-06-09 00:00:00 Refill Eduar [facility] OFFICE BUILDING ONE 1.2.840.114 350.1.13.10 4.2.7.2.[id number] [facility] 2021-06-04 14:44:49 2021-06-04 14:45:00 Imm/Inj Visit Nurse, Brenda Hernandez Immunizatio Severo Peterson [facility] BUILDING 1..840.114 350.1.13.10 4.2.7.2.[id number] [facility] 2021-06-04 14:00:00 2021-06-04 14:35:39 Outpatient R BRIAN VENTURA [facility] [id number] [facility] 2021-06-04 13:38:39 2021-06-04 14:35:39 Office Visit Brian Ventura [facility] 1..840.114 350.1.13.10 4.2.7.2.[id number] [facility] 2021-06-04 14:30:00 2021-06-04 14:30:00 Outpatient SEVERO JOAQUIN [facility] [id number] [facility] 2021-06-04 10:40:00 2021-06-04 10:40:00 Outpatient SEVERO JOAQUIN [facility] [id number] [facility] 2021-06-04 00:00:00 2021-06-04 00:00:00 Transition of Care Elizabeth Mckeon 1.84.114 350.1.13.10 4.2.7.2.[id number] [facility] 2021-05-31 13:04:00 2021-06-01 12:55:00 Outpatient X MICHELLEPEGGY BELLALANI [facility] JOHNNY [id number] [facility] 2021-05-31 13:04:00 2021-06-01 12:55:00 Hospital Encounter Jesus Spain Cheryle [facility] 1..114 350.1.13.10 4.2.7.2.[id number] [facility] 2021-05-30 13:30:00 2021-05-30 13:30:00 Outpatient SEVREO JOAQUIN [facility] [id number] [facility] 2021-05-30 00:00:00 2021-05-30 00:00:00 Refill Witt [facility] OFFICE BUILDING ONE 1.84.114 350.1.13.10 4.2.7.2.[id number] [facility] 2021-05-29 00:00:00 2021-05-29 00:00:00 Telephone Eduar [facility] Mauricio?[facility]ri[facility] 1..114 350.1.13.10 4.2.7.2.[id number] [facility] 2021-05-28 00:00:00 2021-05-28 00:00:00 Telephone Eduar [facility] MAURICIO?MAR[facility]ELA [facility] OFF[facility] BUILDING 1.284.114 350.1.13.10 4.2.7.2.[id number] [facility] 2021-05-27 00:00:00 2021-05-27 00:00:00 [facility] 1.284.114 350.1.13.10 4.2.7.2.[id number] [facility] 2021-05-27 00:00:00 2021-05-27 00:00:00 [facility]Mar[facility]ela [facility] Building 1.2840.114 350.1.13.10 4.2.7.2.[id number] [facility] 2021-05-22 00:00:00 2021-05-22 00:00:00 Refill Eduar [facility] Office Building One 1.84.114 350.1.13.10 4.2.7.2.[id number] [facility] 2021-05-12 00:00:00 2021-05-12 00:00:00 Refill Eduar [facility] Office Building One 1.84.114 350.1.13.10 4.2.7.2.[id number] [facility] 2021-05-10 13:30:00 2021-05-10 14:11:31 Outpatient R MARYLOU GAMINO [facility] [id number] [facility] 2021-05-10 13:28:18 2021-05-10 14:11:31 Office Visit Delfino [facility] MAURICIO?MARISELA [facility] MED[facility] OFFICE BUILDING 1.284.114 350.1.13.10 4.2.7.2.[id number] [facility] 2021-05-09 00:00:00 2021-05-09 00:00:00 Telephone Giovany Antoine [facility] nal Building 1.84.114 350.1.13.10 4.2.7.2.[id number] [facility] 2021-05-06 00:00:00 2021-05-06 00:00:00 Orders Only Doctor Unassigned, Dimmitt [facility] 1.2840.114 350.1.13.10 4.2.7.2.[id number] [facility] 2021-05-01 00:00:00 2021-05-01 00:00:00 Telephone Eduar [facility] Medical Office Building 1..840.114 350.1.13.10 4.2.7.2.[id number] [facility] 2021-04-25 08:59:52 2021-04-25 09:29:52 Office Visit Witt [facility] Medical Office Building 1.840.114 350.1.13.10 4.2.7.2.[id number] [facility] 2021-04-25 09:00:00 2021-04-25 09:00:00 Outpatient R JEFFERSON WITT [facility] [id number] [facility] 2021-04-24 09:29:51 2021-04-24 09:50:31 Urgent Care Ana R[facility]?[employer] [facility] Medical Office Building 1..840.114 350.1.13.10 4.2.7.2.[id number] [facility] 2021-04-24 09:40:00 2021-04-24 09:40:00 Outpatient Hany [facility] [id number] [facility] 2021-04-18 00:00:00 2021-04-18 00:00:00 Orders Only Doctor Unassigned, [facility] 1.2840.114 350.1.13.10 4.2.7.2.[id number] [facility] 2021-04-15 00:00:00 2021-04-15 00:00:00 Telephone Marylou Gamino [facility] Building 1.2.840.114 350.1.13.10 4.2.7.2.[id number] [facility] 2021-04-11 09:38:42 2021-04-11 09:57:48 [facility] Building 1.2.840.114 350.1.13.10 4.2.7.2.[id number] [facility] 2021-04-11 09:45:00 2021-04-11 09:45:00 Outpatient JEFFERSON PEREZ [facility] [id number] [facility] 2021-04-11 08:12:22 2021-04-11 08:27:22 Rn Office Visit 2, [facility] Eduar [facility] Building 1.2.840.114 350.1.13.10 4.2.7.2.[id number] [facility] 2021-04-11 08:12:22 2021-04-11 08:27:22 Rn Office Visit 2, [facility] Eduar [facility] Building 1.2.840.114 350.1.13.10 4.2.7.2.[id number] [facility] 2021-04-10 12:00:00 2021-04-10 12:00:00 Outpatient JEFFERSON PEREZ [facility] [id number] [facility] 2021-03-31 00:00:00 2021-03-31 00:00:00 Refill Witt, [facility] Office Building One 1.2.840.114 350.1.13.10 4.2.7.2.[id number] [facility] 2021-03-31 00:00:00 2021-03-31 00:00:00 Refill [facility] Office Building One 1.2840.114 350.1.13.10 4.2.7.2.[id number] [facility] 2021-03-12 00:00:00 2021-03-12 00:00:00 Refprabhjot Witt [facility] Office Building One 1.2840.114 350.1.13.10 4.2.7.2.[id number] [facility] 2021-03-04 00:00:00 2021-03-04 00:00:00 Refill Eduar [facility] Office Building One 1.2840.114 350.1.13.10 4.2.7.2.[id number] [facility] 2021-03-01 00:00:00 2021-03-01 00:00:00 Refill Eduar [facility] Office Building One 1.2840.114 350.1.13.10 4.2.7.2.[id number] [facility] 2021-02-26 00:00:00 2021-02-26 00:00:00 Telephone Jefferson Witt [facility] Office Building One 1.2.840.114 350.1.13.10 4.2.7.2.[id number] [facility] 2021-02-22 00:00:00 2021-02-22 00:00:00 Telephone Eduar [facility] Office Building One 1..114 350.1.13.10 4.2.7.2.[id number] [facility] 2021-02-19 00:00:00 2021-02-19 00:00:00 Refill Bassam [facility] Office Building One 1.114 350.1.13.10 4.2.7.2.[id number] [facility] 2021-02-18 11:40:45 2021-02-18 23:59:00 Hospital Encounter [facility] 1..114 350.1.13.10 4.2.7.2.[id number] [facility] 2021-02-18 00:00:00 2021-02-18 00:00:00 Outpatient JOSSE RUIZ [facility] [id number] [facility] 2021-02-18 00:00:00 2021-02-18 00:00:00 Orders Only Doctor Unassigned, [facility]immitt [facility] 1..114 350.1.13.10 4.2.7.2.[id number] [facility] 2021-02-18 00:00:00 2021-02-18 00:00:00 Telephone Jefferson Witt [facility] Office Building One 1.114 350.1.13.10 4.2.7.2.[id number] [facility] 2021-02-08 08:30:00 2021-02-08 08:30:00 Outpatient GIOVANY GOTTI [facility] [id number] [facility] 2021-02-04 12:13:45 2021-02-04 12:31:27 Urgent Care Provider, [facility] .114 350.1.13.10 4.2.7.2.[id number] [facility] 2021-02-04 12:20:00 2021-02-04 12:20:00 Outpatient JOSSE RUIZ [facility] [id number] [facility] 2021-02-04 00:00:00 2021-02-04 00:00:00 Viktoriya Witt [facility] Office Building One ..114 350.1.13.10 4.2.7.2.[id number] [facility] 2021-02-01 13:13:42 2021-02-01 15:01:09 Office Visit Marylou Gamino [facility] Building 1.114 350.1.13.10 4.2.7.2.[id number] [facility] 2021-02-01 13:30:00 2021-02-01 13:30:00 Outpatient GIOVANY GOTTI [facility] [id number] [facility] 2021-02-01 13:30:00 2021-02-01 13:30:00 Outpatient GIOVANY GOTTI [facility] [id number] [facility] 2021-01-24 00:00:00 2021-01-24 00:00:00 Viktoriya Witt [facility] Office Building One .114 350.1.13.10 4.2.7.2.[id number] [facility] 2021-01-16 00:00:00 2021-01-16 00:00:00 Viktoriya Witt [facility] Office Building One .114 350.1.13.10 4.2.7.2.[id number] [facility] 2021-01-10 00:00:00 2021-01-10 00:00:00 Telephone AlbertoRomi [facility] Office Building One 1.84.114 350.1.13.10 4.2.7.2.[id number] [facility] 2021-01-09 15:52:45 2021-01-09 16:12:45 Urgent Care Romi Dominguez [facility] Office Building One ..114 350.1.13.10 4.2.7.2.[id number] [facility] 2021-01-09 16:00:00 2021-01-09 16:00:00 Outpatient MEHREEN RUIZTHIA [facility] [id number] [facility] 2021-01-07 00:00:00 2021-01-07 00:00:00 Refill Eduar [facility] Office Building One .114 350.1.13.10 4.2.7.2.[id number] [facility] 2021-01-07 00:00:00 2021-01-07 00:00:00 Refill Eduar [facility] Office Building One ..114 350.1.13.10 4.2.7.2.[id number] [facility] 2021-01-07 00:00:00 2021-01-07 00:00:00 Telephone Eduar [facility] Office Building One 1.84.114 350.1.13.10 4.2.7.2.[id number] [facility] 2021-01-07 00:00:00 2021-01-07 00:00:00 Telephone Jefferson [facility] Office Building One 1.0.114 350.1.13.10 4.2.7.2.[id number] [facility] 2021-01-03 12:15:00 2021-01-03 12:15:00 Outpatient R JEFFERSON WITT [facility] [id number] [facility] 2021-01-03 11:45:12 2021-01-03 12:00:12 Office Visit Bassam WittFormerly [facility] Office Building One 1.0.114 350.1.13.10 4.2.7.2.[id number] [facility] 2021-01-02 00:00:00 2021-01-02 00:00:00 Refill Eduar [facility] Office Building One 1.840.114 350.1.13.10 4.2.7.2.[id number] [facility] 2021-01-02 00:00:00 2021-01-02 00:00:00 Telephone Eduar [facility] Office Building One 1.840.114 350.1.13.10 4.2.7.2.[id number] [facility] 2021-01-01 00:00:00 2021-01-01 00:00:00 Refill Eduar [facility] Office Building One 1.2840.114 350.1.13.10 4.2.7.2.[id number] [facility] 2021-01-01 00:00:00 2021-01-01 00:00:00 Orders Only Doctor Unassigned, [place] [facility] 1.20.114 350.1.13.10 4.2.7.2.[id number] [facility] 2020-12-24 00:00:00 2020-12-24 00:00:00 Nurse Triage Paras Fitzgeraldulices Black [facility] 1.2840.114 350.1.13.10 4.2.7.2.[id number] [facility] 2020-12-07 00:00:00 2020-12-07 00:00:00 Refill Eduar [facility] Office Building One 1.840.114 350.1.13.10 4.2.7.2.[id number] [facility] 2020-12-05 00:00:00 2020-12-05 00:00:00 Juan Witt [facility] Office Building One 1.2840.114 350.1.13.10 4.2.7.2.[id number] [facility] 2020-12-03 00:00:00 2020-12-03 00:00:00 Refill Eduar [facility] Office Building One 1.2840.114 350.1.13.10 4.2.7.2.[id number] [facility] 2020-12-03 00:00:00 2020-12-03 00:00:00 Refill Eduar [facility] Office Building One 1.840.114 350.1.13.10 4.2.7.2.[id number] [facility] 2020-11-27 09:21:28 2020-11-27 23:59:00 Outpatient R JEFFERSON WITT [facility] [id number] [facility] 2020-11-27 09:21:28 2020-11-27 23:59:00 Hospital Encounter [facility] 1.2840.114 350.1.13.10 4.2.7.2.[id number] [facility] 2020-11-27 00:00:00 2020-11-27 00:00:00 Outpatient JEFFERSON PEREZ [facility] [id number] [facility] 2020-11-27 00:00:00 2020-11-27 00:00:00 Orders Only Doctor Unassigned, [place]itt [facility] 1.2840.114 350.1.13.10 4.2.7.2.[id number] [facility] 2020-11-21 00:00:00 2020-11-21 00:00:00 Refill Eduar [facility] Office Building One 1.2840.114 350.1.13.10 4.2.7.2.[id number] [facility] 2020-11-14 00:00:00 2020-11-14 00:00:00 Telephone Bassam WittFormerly [facility] Office Building One 1.20.114 350.1.13.10 4.2.7.2.[id number] [facility] 2020-11-13 13:17:58 2020-11-13 23:59:00 Outpatient JEFFERSON PEREZ [facility] [id number] [facility] 2020-11-13 13:17:58 2020-11-13 23:59:00 Hospital Encounter [facility] 1.2840.114 350.1.13.10 4.2.7.2.[id number] [facility] 2020-11-13 13:17:10 2020-11-13 23:59:00 Hospital Encounter [facility] 1.2.840.114 350.1.13.10 4.2.7.2.[id number] [facility] 2020-11-13 00:00:00 2020-11-13 00:00:00 Outpatient Hany JEFFERSON WITT [facility] [id number] [facility] 2020-11-13 00:00:00 2020-11-13 00:00:00 Orders Only Doctor Unassigned, [place]itt [facility] 1.0.114 350.1.13.10 4.2.7.2.[id number] [facility] 2020-11-06 00:00:00 2020-11-06 00:00:00 [facility] 1..114 350.1.13.10 4.2.7.2.[id number] [facility] 2020-10-24 13:10:01 2020-10-24 13:25:01 Office Visit Eduar [facility] Office Building One 1..114 350.1.13.10 4.2.7.2.[id number] [facility] 2020-10-24 13:15:00 2020-10-24 13:15:00 Outpatient JEFFERSON PEREZ [facility] [id number] [facility] 2020-10-24 00:00:00 2020-10-24 00:00:00 Orders Only Doctor Unassigned, [place]itt [facility] 1..114 350.1.13.10 4.2.7.2.[id number] [facility] 2020-10-09 00:00:00 2020-10-09 00:00:00 [facility] One ..114 350.1.13.10 4.2.7.2.[id number] [facility] 2020-10-09 00:00:00 2020-10-09 00:00:00 Refprabhjot Witt [facility] Office Building One 1.84114 350.1.13.10 4.2.7.2.[id number] [facility] 2020-10-03 12:26:09 2020-10-03 12:41:09 Office Visit Eduar [facility] Office Building One 1.84.114 350.1.13.10 4.2.7.2.[id number] [facility] 2020-10-03 12:15:00 2020-10-03 12:15:00 Outpatient R JEFFERSON WITT [facility] [id number] [facility] 2020-09-28 13:21:27 2020-09-28 14:42:31 Office Visit Giovany Antoine [facility] Building 1.114 350.1.13.10 4.2.7.2.[id number] [facility] 2020-09-28 13:30:00 2020-09-28 13:30:00 Outpatient R GIOVANY ANTOINE [facility] [id number] [facility] 2020-09-24 00:00:00 2020-09-24 00:00:00 Refill Eduar [facility] Office Building One .114 350.1.13.10 4.2.7.2.[id number] [facility] 2020-09-20 11:53:00 2020-09-20 12:28:00 Emergency X JAYASHREE MULLINS [facility] E[facility] [id number] [facility] 2020-09-20 11:53:00 2020-09-20 12:28:00 Emergency Jayashree [facility] 1..114 350.1.13.10 4.2.7.2.[id number] [facility] 2020-09-19 00:00:00 2020-09-19 00:00:00 Viktoriya Witt [facility] Office Building One 1..114 350.1.13.10 4.2.7.2.[id number] [facility] 2020-09-14 00:00:00 2020-09-14 00:00:00 Viktoriya Witt [facility] Office Building One 1..114 350.1.13.10 4.2.7.2.[id number] [facility] 2020-09-13 00:00:00 2020-09-13 00:00:00 Viktoriya Witt [facility] Office Building One 1..114 350.1.13.10 4.2.7.2.[id number] [facility] 2020-09-06 13:30:00 2020-09-06 13:40:37 Outpatient R JORGE LUIS L[address] [facility] [id number] [facility] 2020-09-06 13:30:00 2020-09-06 13:30:00 Outpatient JORGE LUIS ROBERTS [facility] [id number] [facility] 2020-08-31 10:35:13 2020-08-31 11:37:50 Office Visit Bisi Cardoso [facility] Building 1..114 350.1.13.10 4.2.7.2.[id number] [facility] 2020-08-31 11:00:00 2020-08-31 11:00:00 Outpatient R BISI CARDOSO [facility] [id number] [facility] 2020-08-29 00:00:00 2020-08-29 00:00:00 [facility] 1.2.840.114 350.1.13.10 4.2.7.2.[id number] [facility] 2020-08-27 00:00:00 2020-08-27 00:00:00 RefBassam MoyaFormerly [facility] Office Building One 1.2.840.114 350.1.13.10 4.2.7.2.[id number] [facility] 2020-08-21 00:00:00 2020-08-21 00:00:00 Nurse Triage Guy Mcclellan [facility] 1.2.840.114 350.1.13.10 4.2.7.2.[id number] [facility] 2020-08-17 07:37:00 2020-08-17 11:47:00 Hospital Encounter Bisi Cardoso [facility] 1.2.840.114 350.1.13.10 4.2.7.2.[id number] [facility] 2020-08-16 14:00:33 2020-08-16 14:15:33 Laboratory Only Only, Adc Test Bisi Cardoso [facility] 1.2.840.114 350.1.13.10 4.2.7.2.[id number] [facility] 2020-08-16 14:00:00 2020-08-16 14:00:00 Outpatient R BISI CARDOSO [facility] [id number] [facility] 2020-08-16 00:00:00 2020-08-16 00:00:00 Orders Only Doctor Unassigned, [place]itt [facility] 1..114 350.1.13.10 4.2.7.2.[id number] [facility] 2020-08-14 00:00:00 2020-08-14 00:00:00 Telephone Giovany Antoine [facility] 1.114 350.1.13.10 4.2.7.2.[id number] [facility] 2020-08-09 15:20:00 2020-08-09 15:20:00 Outpatient JORGE LUIS ROBERTS [facility] [id number] [facility] 2020-08-09 15:20:00 2020-08-09 15:09:53 Outpatient JORGE LUIS ROBERTS [facility] [id number] [facility] 2020-08-08 00:00:00 2020-08-08 00:00:00 Telephone Eduar [facility] Office Building One 1..114 350.1.13.10 4.2.7.2.[id number] [facility] 2020-08-06 00:00:00 2020-08-06 00:00:00 Refprabhjot Witt [facility] Office Building One 1..114 350.1.13.10 4.2.7.2.[id number] [facility] 2020-08-06 00:00:00 2020-08-06 00:00:00 Telephone Jefferson Witt [facility] Building 1.84.114 350.1.13.10 4.2.7.2.[id number] [facility] 2020-07-30 10:00:24 2020-07-30 10:15:24 Rn Office Visit 2, [facility] Lab Jefferson Witt [facility] Building 1.840.114 350.1.13.10 4.2.7.2.[id number] [facility] 2020-07-30 10:15:00 2020-07-30 10:15:00 Outpatient R JEFFERSON WITT [facility] [id number] [facility] 2020-07-30 08:18:05 2020-07-30 09:18:05 Laboratory Only Pc, Adc [facility] 1.84.114 350.1.13.10 4.2.7.2.[id number] [facility] 2020-07-30 08:17:07 2020-07-30 08:47:07 Nurse Visit Visit, [facility] Nurse Cliff [facility] Building 1.2.114 350.1.13.10 4.2.7.2.[id number] [facility] 2020-07-30 08:30:00 2020-07-30 08:30:00 Outpatient R [facility] [id number] [facility] 2020-07-30 00:00:00 2020-07-30 00:00:00 Refill Jefferson Witt [facility] Office Building One 1..114 350.1.13.10 4.2.7.2.[id number] [facility] 2020-07-24 00:00:00 2020-07-24 00:00:00 Telephone Jefferson Witt [facility] Office Building One 1..114 350.1.13.10 4.2.7.2.[id number] [facility] 2020-07-23 00:00:00 2020-07-23 00:00:00 Refill Witt Jefferson [facility] Office Building One 1.840.114 350.1.13.10 4.2.7.2.[id number] [facility] 2020-07-20 09:45:00 2020-07-20 10:34:29 Outpatient R BISI CARDOSO [facility] [id number] [facility] 2020-07-20 09:34:36 2020-07-20 10:34:29 Office Visit Bisi Cardoso [facility] 1.284.114 350.1.13.10 4.2.7.2.[id number] [facility] 2020-07-20 09:45:00 2020-07-20 09:45:00 Outpatient R BISI CARDOSO [facility] [id number] [facility] 2020-07-20 00:00:00 2020-07-20 00:00:00 Prep For Surgery Sandy Zacarias [facility] 1.284.114 350.1.13.10 4.2.7.2.[id number] [facility] 2020-07-19 00:00:00 2020-07-19 00:00:00 Telephone PraveenaSandy [facility] 1.2840.114 350.1.13.10 4.2.7.2.[id number] [facility] 2020-07-11 14:15:00 2020-07-11 15:24:26 Outpatient R PRAVEENA SANDY [facility] [id number] [facility] 2020-07-11 14:07:33 2020-07-11 15:24:26 Office Visit Sandy Zacarias [facility] 1.284.114 350.1.13.10 4.2.7.2.[id number] [facility] 2020-07-11 12:22:19 2020-07-11 12:42:19 Rn Office Visit Lab, [facility] Fam Pob I Bassam WittFormerly [facility] Office Building One 1.0.114 350.1.13.10 4.2.7.2.[id number] [facility] 2020-07-11 11:51:24 2020-07-11 12:15:39 Office Visit Jefferson Witt [facility] Office Building One 1.0.114 350.1.13.10 4.2.7.2.[id number] [facility] 2020-07-11 12:00:00 2020-07-11 12:00:00 [id number] 2020-07-04 00:00:00 2020-07-04 00:00:00 Telephone Jefferson Witt [facility] Office Building One 1.0.114 350.1.13.10 4.2.7.2.[id number] [facility] 2020-06-27 13:09:36 2020-06-27 23:59:00 Hospital Encounter [facility] 1.0.114 350.1.13.10 4.2.7.2.[id number] [facility] 2020-06-27 11:31:39 2020-06-27 11:51:39 Rn Office Visit Lab, [facility] Fam Pob I BenRosette ortiz [facility] Office Building One 1..114 350.1.13.10 4.2.7.2.[id number] [facility] 2020-06-27 11:40:00 2020-06-27 11:43:32 Outpatient R ROSETTE CONTRERAS [facility] [id number] [facility] 2020-06-27 10:46:55 2020-06-27 11:43:03 Urgent Care Provider, [facility] Josse eLyva [facility] Office Building One 1.114 350.1.13.10 4.2.7.2.[id number] [facility] 2020-06-27 11:00:00 2020-06-27 11:00:00 Outpatient R JOSSE LEYVA [facility] [id number] [facility] 2020-06-26 00:00:00 2020-06-26 00:00:00 Telephone Eduar [facility] Office Building One 1..114 350.1.13.10 4.2.7.2.[id number] [facility] 2020-06-22 00:00:00 2020-06-22 00:00:00 Refill Eduar [facility] Office Building One 1..114 350.1.13.10 4.2.7.2.[id number] [facility] 2020-06-21 00:00:00 2020-06-21 00:00:00 Telephone Eduar [facility] Office Building One 1.114 350.1.13.10 4.2.7.2.[id number] [facility] 2020-06-19 00:00:00 2020-06-19 00:00:00 Refill Eduar [facility] Office Building One 1..114 350.1.13.10 4.2.7.2.[id number] [facility] 2020-06-19 00:00:00 2020-06-19 00:00:00 Refill Eduar [facility] Office Building One 1.2.840.114 350.1.13.10 4.2.7.2.[id number] [facility] 2020-06-13 00:00:00 2020-06-13 00:00:00 Refill Eduar [facility] Office Building One 1.840.114 350.1.13.10 4.2.7.2.686 [id number] 044 [id number] [facility] 2020-06-04 00:00:00 2020-06-04 00:00:00 Telephone Farshad Antoinein Claudia [facility] 1..114 350.1.13.10 4.2.7.2.[id number] [facility] 2020-06-01 00:00:00 2020-06-01 00:00:00 Telephone Bassam WittFormerly [facility] Office Building One 1..114 350.1.13.10 4.2.7.2.[id number] [facility] 2020-05-29 09:00:00 2020-05-29 09:00:00 Outpatient R JEFFERSON WTIT [facility] [id number] [facility] 2020-05-29 06:53:27 2020-05-29 07:08:27 Telemedici ne Visit Eduar [facility] Office Building One 1..114 350.1.13.10 4.2.7.2.[id number] [facility] 2020-05-29 00:00:00 2020-05-29 00:00:00 Refill Giovany Antoine [facility] 1.840.114 350.1.13.10 4.2.7.2.[id number] [facility] 2020-05-21 00:00:00 2020-05-21 00:00:00 Telephone Jefferson Witt [facility] Office Building One 1.2840.114 350.1.13.10 4.2.7.2.[id number] [facility] 2020-05-16 00:00:00 2020-05-16 00:00:00 Refill Jefferson Witt [facility] Office Building One 1.2.840.114 350.1.13.10 4.2.7.2.[id number] [facility] 2020-05-14 00:00:00 2020-05-14 00:00:00 Refill Eduar [facility] Building One 1.2840.114 350.1.13.10 4.2.7.2.[id number] [facility] 2020-05-11 00:00:00 2020-05-11 00:00:00 Telephone Eduar [facility] Building One 1.2840.114 350.1.13.10 4.2.7.2.[id number] [facility] 2020-05-11 00:00:00 2020-05-11 00:00:00 Telephone Giovany Antoine [facility] nal Building 1.2.840.114 350.1.13.10 4.2.7.2.[id number] [facility] 2020-05-08 08:45:00 2020-05-08 08:45:00 Outpatient R JEFFERSON WITT [facility] [id number] [facility] 2020-05-08 07:57:55 2020-05-08 08:12:55 Telemedici ne Visit Eduar [facility] Office Building One 1.840.114 350.1.13.10 4.2.7.2.686 [id number] [id number] [facility] 2020-05-08 00:00:00 2020-05-08 00:00:00 Telephone Eduar [facility] Building One 1..114 350.1.13.10 4.2.7.2.686 [id number] 044 [id number] [facility] 2020-05-08 00:00:00 2020-05-08 00:00:00 Telephone Jefferson Witt [facility] nal Building 1..114 350.1.13.10 4.2.7.2.[id number] [facility] 2020-05-02 00:00:00 2020-05-02 00:00:00 Telephone Eduar [facility] Office Building One 1.114 350.1.13.10 4.2.7.2.[id number] [facility] 2020-04-24 09:15:00 2020-04-24 09:15:00 Outpatient R JEFFERSON WITT [facility] [id number] [facility] 2020-04-24 06:51:14 2020-04-24 07:06:14 Telemedici ne Visit Eduar [facility] Office Building One 1.114 350.1.13.10 4.2.7.2.[id number] [facility] 2020-04-18 00:00:00 2020-04-18 00:00:00 Refill Eduar [facility] Office Building One 1.114 350.1.13.10 4.2.7.2.[id number] [facility] 2020-04-13 00:00:00 2020-04-13 00:00:00 Refill Antoine, Giovany [facility] Building 1.114 350.1.13.10 4.2.7.2.[id number] [facility] 2020-04-11 13:00:00 2020-04-11 13:00:00 Outpatient JEFFERSON PEREZ [facility] [id number] [facility] 2020-04-11 12:43:12 2020-04-11 12:58:12 Office Visit Jefferson Witt [facility] Office Building One 1..114 350.1.13.10 4.2.7.2.[id number] [facility] 2020-04-08 00:00:00 2020-04-08 00:00:00 Refprabhjot Witt [facility] Office Building One 1.114 350.1.13.10 4.2.7.2.[id number] [facility] 2020-04-04 13:45:29 2020-04-04 14:43:26 Office Visit Dilan Love [facility] 1..114 350.1.13.10 4.2.7.2.[id number] [facility] 2020-04-04 14:00:00 2020-04-04 14:00:00 Outpatient R DILAN LOVE [facility] [id number] [facility] 2020-04-02 00:00:00 2020-04-02 00:00:00 Refill Eduar [facility] Office Building One 1.114 350.1.13.10 4.2.7.2.[id number] [facility] 2020-04-01 00:00:00 2020-04-01 00:00:00 Nurse Triage Alana Baptiste [facility] 1.2.840.114 350.1.13.10 4.2.7.2.[id number] [facility] 2020-04-01 00:00:00 2020-04-01 00:00:00 Telephone Aleks Sanders Ketty [facility] 1.20.114 350.1.13.10 4.2.7.2.[id number] [facility] 2020-03-28 14:15:00 2020-03-28 14:15:00 Outpatient R DILAN LOVE [facility] [id number] [facility] 2020-03-24 00:00:00 2020-03-24 00:00:00 Jefferson Katz [facility] Office Building One 1..114 350.1.13.10 4.2.7.2.[id number] [facility] 2020-03-23 13:17:14 2020-03-23 14:30:58 Office Visit Giovany Antoine [facility] Building 1..114 350.1.13.10 4.2.7.2.[id number] [facility] 2020-03-23 13:30:00 2020-03-23 13:30:00 Outpatient R GIOVANY ANTOINE [facility] [id number] [facility] 2020-03-23 00:00:00 2020-03-23 00:00:00 Orders Only Doctor Unassigned, Dimmitt [facility] 1.114 350.1.13.10 4.2.7.2.[id number] [facility] 2020-03-20 14:45:00 2020-03-20 14:45:00 Outpatient NOEMI ZAIDI [facility] [id number] [facility] 2020-03-19 00:00:00 2020-03-19 00:00:00 Telephone Giovany Antoine [facility] Building 1.2840.114 350.1.13.10 4.2.7.2.[id number] [facility] 2020-03-19 00:00:00 2020-03-19 00:00:00 Refill Eduar [facility] Office Building One 1.2840.114 350.1.13.10 4.2.7.2.686 [id number] [id number] [facility] 2020-03-16 00:00:00 2020-03-16 00:00:00 Refill Giovany Antoine [facility] 1.2840.114 350.1.13.10 4.2.7.2.[id number] [facility] 2020-03-15 00:00:00 2020-03-15 00:00:00 Telephone Bassam WittFormerly [facility] Office Building One 1.0.114 350.1.13.10 4.2.7.2.[id number] [facility] 2020-03-13 10:25:12 2020-03-13 23:59:00 Outpatient R JOSSE LEYVA [facility] [id number] [facility] 2020-03-13 10:25:12 2020-03-13 23:59:00 Hospital Encounter Josse [facility] 1.2840.114 350.1.13.10 4.2.7.2.[id number] [facility] 2020-03-13 09:37:13 2020-03-13 09:57:13 Urgent Care Provider, [facility] Office Building One 1.840.114 350.1.13.10 4.2.7.2.[id number] [facility] 2020-03-13 09:40:00 2020-03-13 09:40:00 Outpatient R [facility] [id number] [facility] 2020-03-09 00:00:00 2020-03-09 00:00:00 Telephone Jefferson Witt [facility] 1.0.114 350.1.13.10 4.2.7.2.[id number] [facility] 2020-03-07 00:00:00 2020-03-07 00:00:00 Telephone Giovany Antoine [facility] 1.2.114 350.1.13.10 4.2.7.2.[id number] [facility] 2020-03-03 00:00:00 2020-03-03 00:00:00 Refill Jefferson Witt [facility] Office Building One 1..114 350.1.13.10 4.2.7.2.[id number] [facility] 2020-03-02 00:00:00 2020-03-02 00:00:00 Telephone Giovany Antoine [facility] 1..114 350.1.13.10 4.2.7.2.[id number] [facility] 2020-02-29 00:00:00 2020-02-29 00:00:00 Refill Jefferson Witt [facility] Office Building One 1..114 350.1.13.10 4.2.7.2.[id number] [facility] 2020-02-28 00:00:00 2020-02-28 00:00:00 Refill Bassam WittFormerly [facility] Office Building One 1.2.840.114 350.1.13.10 4.2.7.2.[id number] [facility] 2020-02-28 00:00:00 2020-02-28 00:00:00 Telephone Giovany Antoine [facility] 1.2.840.114 350.1.13.10 4.2.7.2.[id number] [facility] 2020-02-27 00:00:00 2020-02-27 00:00:00 Refprabhjot Witt [facility] Office Building One 1.2.840.114 350.1.13.10 4.2.7.2.[id number] [facility] 2020-02-23 00:00:00 2020-02-23 00:00:00 Telephone Giovany Antoine [facility] 1.2.840.114 350.1.13.10 4.2.7.2.[id number] [facility] 2020-02-21 00:00:00 2020-02-21 00:00:00 Telephone Giovany Antoine [facility] 1.2.840.114 350.1.13.10 4.2.7.2.[id number] [facility] 2020-02-20 00:00:00 2020-02-20 00:00:00 Refill Bassam WittFormerly [facility] Office Building One 1.2.840.114 350.1.13.10 4.2.7.2.[id number] [facility] 2020-02-14 00:00:00 2020-02-14 00:00:00 Telephone Jefferson Witt [facility] 1.2.840.114 350.1.13.10 4.2.7.2.686 [id number] 044 [id number] [facility] ity [facility] 2020-02-10 00:00:00 2020-02-10 00:00:00 Refprabhjot Witt [facility] Office Building One 1.2.840.114 350.1.13.10 4.2.7.2.686 [id number] 044 [id number] [facility] 2020-02-08 00:00:00 2020-02-08 00:00:00 Refill Jefferson Witt [facility] nal Building 1.2.840.114 350.1.13.10 4.2.7.2.[id number] [facility] 2020-02-02 00:00:00 2020-02-02 00:00:00 Refprabhjot Witt [facility] Office Building One 1.2.840.114 350.1.13.10 4.2.7.2.686 [id number] 044 [id number] [facility] 2020-02-02 00:00:00 2020-02-02 00:00:00 Telephone Giovany Antoine [facility] 1.2.840.114 350.1.13.10 4.2.7.2.[id number] [facility] 2020-01-31 00:00:00 2020-01-31 00:00:00 Refill Eduar [facility] Office Building One 1.2.840.114 350.1.13.10 4.2.7.2.[id number] [facility] 2020-01-26 00:00:00 2020-01-26 00:00:00 Refill Giovany Antoine Claudia [facility] 1.2.840.114 350.1.13.10 4.2.7.2.[id number] [facility] 2020-01-24 00:00:00 2020-01-24 00:00:00 Refill Jefferson Witt [facility] Office Building One 1.20.114 350.1.13.10 4.2.7.2.[id number] [facility] 2020-01-23 00:00:00 2020-01-23 00:00:00 Telephone Giovany Antoine [facility] nal Building 1.20.114 350.1.13.10 4.2.7.2.[id number] [facility] 2020-01-18 00:00:00 2020-01-18 00:00:00 Refill Eduar Jefferson [facility] Office Building One 1..114 350.1.13.10 4.2.7.2.[id number] [facility] 2020-01-09 11:54:37 2020-01-09 12:09:37 Office Visit Witt Jefferson [facility] 1.2.114 350.1.13.10 4.2.7.2.[id number] [facility] 2020-01-09 12:00:00 2020-01-09 12:00:00 Outpatient R JEFFERSON WITT [facility] [id number] [facility] 2019-12-30 00:00:00 2019-12-30 00:00:00 Telephone Eduar [facility] Office Building One 1..114 350.1.13.10 4.2.7.2.[id number] [facility] 2019-12-29 00:00:00 2019-12-29 00:00:00 Telephone WittJefferson [facility] Office Building One 1..114 350.1.13.10 4.2.7.2.[id number] [facility] 2019-12-27 00:00:00 2019-12-27 00:00:00 Telephone Giovany Antoine [facility] 1.2.840.114 350.1.13.10 4.2.7.2.[id number] [facility] 2019-12-27 00:00:00 2019-12-27 00:00:00 Refill Eduar [facility] Office Building One 1.2.840.114 350.1.13.10 4.2.7.2.[id number] [facility] 2019-12-20 00:00:00 2019-12-20 00:00:00 Refill Eduar [facility] Office Building One 1.2.840.114 350.1.13.10 4.2.7.2.[id number] [facility] 2019-12-15 10:46:49 2019-12-19 09:53:57 Urgent Care Provider, [facility] 1.2.840.114 350.1.13.10 4.2.7.2.[id number] [facility] 2019-12-19 00:00:00 2019-12-19 00:00:00 Telephone Mehreen Leyvathia [facility] Office Building One 1.2.840.114 350.1.13.10 4.2.7.2.[id number] [facility] 2019-12-16 00:00:00 2019-12-16 00:00:00 Refill Eduar [facility] Office Building One 1.2.840.114 350.1.13.10 4.2.7.2.[id number] [facility] 2019-12-16 00:00:00 2019-12-16 00:00:00 RefBassam MoyaFormerly [facility] Office Building One 1.0.114 350.1.13.10 4.2.7.2.686 [id number] 044 [id number] [facility] 2019-12-15 11:00:00 2019-12-15 11:00:00 Outpatient R [facility] [id number] [facility] 2019-12-13 09:40:00 2019-12-13 09:40:00 Outpatient R [facility] [id number] [facility] 2019-12-08 00:00:00 2019-12-08 00:00:00 Viktoriya Witt [facility] Office Building One 1.0.114 350.1.13.10 4.2.7.2.[id number] [facility] 2019-12-01 00:00:00 2019-12-01 00:00:00 Refprabhjot Witt Jefferson [facility] Office Building One 1.0.114 350.1.13.10 4.2.7.2.[id number] [facility] 2019-11-30 00:00:00 2019-11-30 00:00:00 Jefferson Katz [facility] 1.840.114 350.1.13.10 4.2.7.2.[id number] [facility] 2019-11-29 00:00:00 2019-11-29 00:00:00 Telephone Pob1, Acute Care Clinic [facility] Office Building One 1.0.114 350.1.13.10 4.2.7.2.[id number] [facility] 2019-11-28 00:00:00 2019-11-28 00:00:00 Refill Jefferson Witt [facility] Office Building One 1.2840.114 350.1.13.10 4.2.7.2.[id number] [facility] 2019-11-25 08:03:12 2019-11-25 08:18:12 Rn Office Visit 2, Adc Lab Jefferson Witt [facility] nal Building 1.2.840.114 350.1.13.10 4.2.7.2.[id number] [facility] 2019-11-25 08:00:00 2019-11-25 08:00:00 Outpatient Hany ROLDANWITTJEFFERSON [facility] [id number] [facility] 2019-11-25 00:00:00 2019-11-25 00:00:00 Telephone Witt, Jefferson [facility] Office Building One 1.840.114 350.1.13.10 4.2.7.2.[id number] [facility] 2019-11-24 00:00:00 2019-11-24 00:00:00 Telephone Keila Delcid [facility] 1.2.840.114 350.1.13.10 4.2.7.2.[id number] [facility] 2019-11-24 00:00:00 2019-11-24 00:00:00 Telephone Rosette Contreras [facility] Office Building One 1.2840.114 350.1.13.10 4.2.7.2.[id number] [facility] 2019-11-23 15:29:34 2019-11-23 23:59:00 Outpatient R KEILA DELCID [facility] [id number] [facility] 2019-11-23 15:15:00 2019-11-23 23:59:00 Hospital Encounter Keila [facility]cid [facility] 1.2840.114 350.1.13.10 4.2.7.2.[id number] [facility] 2019-11-23 14:33:27 2019-11-23 14:53:27 Urgent Care Pob1, Acute Care Clinic Dariel [facility] Office Building One 1.2840.114 350.1.13.10 4.2.7.2.[id number] [facility] 2019-11-23 14:40:00 2019-11-23 14:40:00 Outpatient R [facility] [id number] [facility] 2019-11-23 00:00:00 2019-11-23 00:00:00 Refill Eduar [facility] Office Building One 1.840.114 350.1.13.10 4.2.7.2.[id number] [facility] 2019-11-23 00:00:00 2019-11-23 00:00:00 Refill Dariel [facility] Office Building One 1.840.114 350.1.13.10 4.2.7.2.[id number] [facility] 2019-11-16 00:00:00 2019-11-16 00:00:00 Telephone Giovany Antoine [facility] nal Building 1.2840.114 350.1.13.10 4.2.7.2.[id number] [facility] 2019-11-15 00:00:00 2019-11-15 00:00:00 Refill Eduar [facility] Office Building One 1.840.114 350.1.13.10 4.2.7.2.[id number] [facility] 2019-11-10 08:41:49 2019-11-10 08:56:49 Office Visit Jefferson Witt [facility] 1.20.114 350.1.13.10 4.2.7.2.[id number] [facility] 2019-11-10 08:45:00 2019-11-10 08:45:00 Outpatient R WITTJEFFERSON [facility] [id number] [facility] 2019-11-07 00:00:00 2019-11-07 00:00:00 Telephone Eduar Jefferson [facility] Office Building One 1.0.114 350.1.13.10 4.2.7.2.[id number] [facility] 2019-11-02 00:00:00 2019-11-02 00:00:00 Refill Bassam Wittony [facility] Office Building One 1..114 350.1.13.10 4.2.7.2.[id number] [facility] 2019-10-26 00:00:00 2019-10-26 00:00:00 Refill Eduar Jefferson [facility] Office Building One 1..114 350.1.13.10 4.2.7.2.[id number] [facility] 2019-10-24 00:00:00 2019-10-24 00:00:00 Telephone Eduar Jefferson [facility] Office Building One 1..114 350.1.13.10 4.2.7.2.[id number] [facility] 2019-10-21 00:00:00 2019-10-21 00:00:00 Refill Giovany Antoine [facility] 1.2.840.114 350.1.13.10 4.2.7.2.686 [id number] 220 [id number] [facility] ity [facility] 2019-10-18 08:20:00 2019-10-18 08:20:00 Outpatient R [facility] [id number] [facility] ity [facility] 2019-10-14 00:00:00 2019-10-14 00:00:00 Telephone Giovany Antoine [facility] nal Building 1.2.840.114 350.1.13.10 4.2.7.2.686 [id number] 220 [id number] [facility] ity [facility] 2019-10-14 00:00:00 2019-10-14 00:00:00 Telephone Giovany Antoine [facility] nal Building 1.2.840.114 350.1.13.10 4.2.7.2.686 [id number] 220 [id number] [facility] ity [facility] 2019-10-13 00:00:00 2019-10-13 00:00:00 Telephone Eduar [facility] Office Building One 1.2.840.114 350.1.13.10 4.2.7.2.[id number] [facility] 2019-10-12 00:00:00 2019-10-12 00:00:00 Refill Eduar [facility] Office Building One 1.2.840.114 350.1.13.10 4.2.7.2.686 [id number] 044 [id number] [facility] 2019-10-11 00:00:00 2019-10-11 00:00:00 Telephone Eduar [facility] Office Building One 1.2.840.114 350.1.13.10 4.2.7.2.[id number] [facility] 2019-10-11 00:00:00 2019-10-11 00:00:00 Orders Only Doctor Unassigned, Dimmitt [facility] 1.2840.114 350.1.13.10 4.2.7.2.[id number] [facility] 2019-10-04 00:00:00 2019-10-04 00:00:00 Refprabhjot Witt [facility] Office Building One 1.840.114 350.1.13.10 4.2.7.2.[id number] [facility] 2019-09-29 00:00:00 2019-09-29 00:00:00 Telephone Eduar [facility] Office Building One 1.0.114 350.1.13.10 4.2.7.2.[id number] [facility] 2019-09-29 00:00:00 2019-09-29 00:00:00 Telephone Eduar [facility] Office Building One 1.840.114 350.1.13.10 4.2.7.2.[id number] [facility] 2019-09-28 00:00:00 2019-09-28 00:00:00 Refprabhjot Witt [facility] Office Building One 1.840.114 350.1.13.10 4.2.7.2.[id number] [facility] 2019-09-28 00:00:00 2019-09-28 00:00:00 Telephone Eduar [facility] Office Building One 1.2840.114 350.1.13.10 4.2.7.2.[id number] [facility] 2019-09-27 00:00:00 2019-09-27 00:00:00 Telephone Eduar [facility] Office Building One 1.2840.114 350.1.13.10 4.2.7.2.[id number] [facility] 2019-09-26 14:15:35 2019-09-26 14:45:35 Office Visit Jefferson Witt [facility] Office Building One 1..114 350.1.13.10 4.2.7.2.[id number] [facility] 2019-09-26 14:30:00 2019-09-26 14:30:00 [id number] 2019-09-26 00:00:00 2019-09-26 00:00:00 Orders Only Doctor Unassigned, [place] [facility] 1..114 350.1.13.10 4.2.7.2.[id number] [facility] 2019-09-23 13:30:00 2019-09-23 14:11:38 Outpatient R GIOVANY ANTOINE [facility] [id number] [facility] 2019-09-23 13:25:38 2019-09-23 14:11:38 Office Visit Giovany Antoine [facility] 1.114 350.1.13.10 4.2.7.2.[id number] [facility] 2019-09-23 00:00:00 2019-09-23 00:00:00 Nurse Triage Ciara Alvarez [facility] 1.0.114 350.1.13.10 4.2.7.2.[id number] [facility] 2019-09-16 00:00:00 2019-09-16 00:00:00 Telephone Bassam WittFormerly [facility] Office Building One 1..114 350.1.13.10 4.2.7.2.686 [id number] 044 [id number] [facility] 2019-09-13 00:00:00 2019-09-13 00:00:00 Telephone Jefferson Witt [facility] Office Building One 1.2.840.114 350.1.13.10 4.2.7.2.[id number] [facility] 2019-09-13 00:00:00 2019-09-13 00:00:00 Orders Only Doctor Unassigned, [place] [facility] 1.2.840.114 350.1.13.10 4.2.7.2.[id number] [facility] 2019-09-12 00:00:00 2019-09-12 00:00:00 Refill Eduar [facility] Office Building One 1.840.114 350.1.13.10 4.2.7.2.[id number] [facility] 2019-09-08 00:00:00 2019-09-08 00:00:00 Refill Eduar [facility] Office Building One 1.2.840.114 350.1.13.10 4.2.7.2.[id number] [facility] 2019-09-05 00:00:00 2019-09-05 00:00:00 Refill Eduar [facility] Office Building One 1.2840.114 350.1.13.10 4.2.7.2.[id number] [facility] 2019-08-25 00:00:00 2019-08-25 00:00:00 Refill Eduar [facility] Office Building One 1.2840.114 350.1.13.10 4.2.7.2.[id number] [facility] 2019-08-25 00:00:00 2019-08-25 00:00:00 Refill Jefferson Witt [facility] Office Building One 1.2.840.114 350.1.13.10 4.2.7.2.[id number] [facility] 2019-08-23 00:00:00 2019-08-23 00:00:00 Refill Giovany Antoine [facility] nal Building 1.2.840.114 350.1.13.10 4.2.7.2.[id number] [facility] 2019-08-17 00:00:00 2019-08-17 00:00:00 Telephone Giovany Antoine [facility] 1.2.840.114 350.1.13.10 4.2.7.2.[id number] [facility] 2019-08-15 00:00:00 2019-08-15 00:00:00 Refill Jefferson Witt [facility] Office Building One 1.2.840.114 350.1.13.10 4.2.7.2.[id number] [facility] 2019-08-13 00:00:00 2019-08-13 00:00:00 Refill Jefferson Witt [facility] Office Building One 1.2.840.114 350.1.13.10 4.2.7.2.[id number] [facility] 2019-04-15 00:00:00 2019-04-15 00:00:00 Refill Jefferson Witt [facility] Office Building One 1.2.840.114 350.1.13.10 4.2.7.2.[id number] [facility] 2019-04-13 13:52:51 2019-04-13 14:14:54 Office Visit Jefferson Witt [facility] Office Building One 1.840.114 350.1.13.10 4.2.7.2.[id number] [facility] 2019-04-13 00:00:00 2019-04-13 00:00:00 Orders Only Doctor Unassigned, [place]immitt [facility] 1.840.114 350.1.13.10 4.2.7.2.[id number] [facility] 2019-04-07 00:00:00 2019-04-07 00:00:00 Refill Jefferson Witt [facility] Office Building One 1..114 350.1.13.10 4.2.7.2.[id number] [facility] 2019-04-05 00:00:00 2019-04-05 00:00:00 Telephone Giovany Antoine [facility] 1.2840.114 350.1.13.10 4.2.7.2.[id number] [facility] 2019-04-05 00:00:00 2019-04-05 00:00:00 Refill Eduar [facility] Office Building One 1..114 350.1.13.10 4.2.7.2.[id number] [facility] 2019-03-31 00:00:00 2019-03-31 00:00:00 Refill Eduar Jefferson [facility] Office Building One 1..114 350.1.13.10 4.2.7.2.[id number] [facility] 2019-03-29 00:00:00 2019-03-29 00:00:00 Telephone Giovany Antoine [facility] 1.2.840.114 350.1.13.10 4.2.7.2.[id number] [facility] 2019-03-29 00:00:00 2019-03-29 00:00:00 Orders Only Doctor Unassigned, [place]itt [facility] 1.2.840.114 350.1.13.10 4.2.7.2.[id number] [facility] 2019-03-21 00:00:00 2019-03-21 00:00:00 Telephone Giovany Antoine [facility] 1.2.840.114 350.1.13.10 4.2.7.2.[id number] [facility] 2019-03-17 00:00:00 2019-03-17 00:00:00 Refprabhjot iWtt [facility] Office Building One 1.2.840.114 350.1.13.10 4.2.7.2.[id number] [facility] 2019-03-17 00:00:00 2019-03-17 00:00:00 Viktoriya Witt [facility] Office Building One 1.2.840.114 350.1.13.10 4.2.7.2.[id number] [facility] 2019-03-09 00:00:00 2019-03-09 00:00:00 Viktoriya Witt [facility] Office Building One 1.2.840.114 350.1.13.10 4.2.7.2.[id number] [facility] 2019-03-03 00:00:00 2019-03-03 00:00:00 Viktoriya Witt [facility] Office Building One 1.2.840.114 350.1.13.10 4.2.7.2.[id number] [facility] 2019-02-28 00:00:00 2019-02-28 00:00:00 Viktoriya Witt [facility] Office Building One 1.2.840.114 350.1.13.10 4.2.7.2.[id number] [facility] 2018-11-01 00:00:00 2018-11-01 00:00:00 Viktoriya Witt [facility] Office Building One 1..840.114 350.1.13.10 4.2.7.2.[id number] [facility] Results Test Description Test Time Test Comments Results Result Co mments Source [facility] [id number] 21:11:47 Ordered by an unspecified provider.[facility] - [id number] 17:53:43Ordered by an unspecified provider.[facility] [id number] 20:19:26Ordered by an unspecified provider.[facility] 2023-11-16 17:14:14Ordered by an unspecified provider.[facility] [id number] 18:46:11Ordered by an unspecified provider.[facility] (SCANNED) DOCUMENTS 2023-11-05 14:00:05Ordered by an unspecified provider.[facility] - [id number] 12:43:55Ordered by an unspecified provider.[facility] [id number] 16:16:26Ordered by an unspecified provider.[facility] Thyroid Stimulating [id number] 22:06:03* Test Item Value Reference Range Interpretation Comme nts TSH (test code = 8839556613) 1.65 0.45-4.70 Lab Interpretation (test cod e = 49221-4) Normal [facility]2023-10-14 21:48:55* Test Item Value Reference Range Interpretation Comme nts HGB A1C (test code = 4548-4) 8.0 % 4.0-5.7 H DENISHA (test code = DENISHA) Reference RangesNormal: <5.7%Prediabetes: 5.7 - 6.4%Diabetes: > 6.5% Lab Interpretation (test code = 98603-6) Abnormal [facility]. Metabolic Panel (00242)2023-10-14 21:36:22* Test Item Value Reference Range Interpretation Comme nts NA (test code = 2218642474) 138 mmol/L 135-145 K (test code = 5187921957) 3.0 mmol/L 3.5-5.0 L CL (test code = 4194354518) 96 mmol/L 98-108 L CO2 TOTAL (test code = 1191965069) 32 mmol/L 23-31 H AGAP (test code = 7777647745) 10 2-16 BUN (test code = 6402134429) 13 mg/dL 7-23 GLUCOSE (test code = 0697910708) 186 mg/dL 70-110 H CREATININE (test code = 2160-0) 0.76 mg/dL 0.50-1.04 TOTAL BILI (test code = 7008575985) 0.5 mg/dL 0.1-1.1 CALCIUM (test code = 4218635038) 8.6 mg/dL 8.6-10.6 T PROTEIN (test code = 8139274934) 6.5 g/dL 6.3-8.2 ALBUMIN (test code = 2218871907) 3.7 g/dL 3.5-5.0 ALK PHOS (test code = 0638612285) 64 U/L 34-122 ALTv (test code = 1742-6) 13 U/L 5-35 AST(SGOT) (test code = 9991915660) 23 U/L 13-40 eGFR (test code = 21208-4) 88.7 mL/min/1.73m2 CKD-EPI eGFR (2020). Assuming creatinine has been stable day-to-day for at least three months, the eGFR indicates Category G2 (60 - 89 mL/min/1.73 m2) Lab Interpretation (test code = 82775-7) Abnormal [facility] ([facility]8828)(Total Cholesterol, Triglycerides, HDL)2023-10-14 21:36:22* Test Item Value Reference Range Interpretation Comme nts CHOL (test code = 2561898637) 107 mg/dL 120-200 L HDL (test code = 6551465561) 22 mg/dL >=50 L HDLC RATIO (test code = 6133127602) 4.9 <=4.5 H TRIG (test code = 8436731753) 262 mg/dL 30-170 H LDL CHOL (test code = 14629-4) 33 mg/dL <=160 VLDL (test code = 1160066739) 52 mg/dL 5-60 Lab Interpretation (test cod e = 40048-6) Abnormal [facility] HEMOGLOBIN A1C [id number] 17:50:00* Test Item Value Reference Range Interpretation Comme nts POCT HBA1C (test code = 4548-4) 7.5 % 4-6 A Lab Interpretation (test cod e = 09190-8) Abnormal [facility] HEMOGLOBIN A1C [id number] 17:50:00* Test Item Value Reference Range Interpretation Comme nts POCT HBA1C (test code = 4548-4) 7.5 % 4-6 A Lab Interpretation (test cod e = 21527-7) Abnormal [facility] MOLECULAR [id number] 16:34:56* Test Item Value Reference Range Interpretation Comme nts POCT Molecular FluA (test co de = 54009-4) Negative Negative POCT Molecular FluB (test co de = 42213-5) Negative Negative Lab Interpretation (test cod e = 79415-2) Normal [facility] MOLECULAR [id number] 16:34:56* Test Item Value Reference Range Interpretation Comme nts POCT Molecular FluA (test co de = 89340-5) Negative Negative POCT Molecular FluB (test co de = 83132-6) Negative Negative Lab Interpretation (test cod e = 08021-7) Normal [facility] MOLECULAR [id number] 16:30:10* Test Item Value Reference Range Interpretation Comme nts POCT Molecular Strep (test c ode = 24275-2) Negative Negative Lab Interpretation (test cod e = 94979-2) Normal [facility] [id number] 16:30:10* Test Item Value Reference Range Interpretation Comme nts POCT Molecular Strep (test c ode = 25277-2) Negative Negative Lab Interpretation (test cod e = 10086-2) Normal [facility]. METABOLIC PANEL (52145)2022-07-19 21:35:09* Test Item Value Reference Range Interpretation Comme nts NA (test code = 6676846523) 139 mmol/L 135-145 K (test code = 5716262944) 4.1 mmol/L 3.5-5.0 CL (test code = 1394578883) 102 mmol/L 98-108 CO2 TOTAL (test code = 5792325157) 29 mmol/L 23-31 AGAP (test code = 5218418762) 2-16 BUN (test code = 6713568055) 12 mg/dL 7-23 GLUCOSE (test code = 3666581180) 236 mg/dL 70-110 H CREATININE (test code = 5338035476) 0.59 mg/dL 0.50-1.04 TOTAL BILI (test code = 8391229137) 0.5 mg/dL 0.1-1.1 CALCIUM (test code = 8881892069) 8.8 mg/dL 8.6-10.6 T PROTEIN (test code = 1283656826) 7.0 g/dL 6.3-8.2 ALBUMIN (test code = 5379353040) 4.2 g/dL 3.5-5.0 ALK PHOS (test code = 6963741495) 77 U/L 34-122 ALTv (test code = 1742-6) 27 U/L 5-35 AST(SGOT) (test code = 6277050390) 22 U/L 13-40 eGFR (test code = 8763113237) mL/min/1.73m2 DENISHA (test code = DENISHA) Association [...] imaging tests). Lab Interpretation (test code = 96076-4) Abnormal [facility] WITH [id number] 21:11:06* Test Item Value Reference Range Interpretation Comme nts WBC (test code = 6690-2) See_Comment [[employer] The system which generated this result transmitted reference range: 4.30 - 11.10 10*3/?L. The reference range was not used to interpret this result as normal/abnormal. RBC (test code = 789-8) See_Comment [[employer] The system which generated this result transmitted [...] g/dL 31.6-35.1 L RDW-SD (test code = 47436-0) 43.3 fL 39.0-49.9 RDW-CV (test code = 788-0) 14.8 % 12.0-15.5 PLT (test code = 777-3) See_Comment [Automated messa ge] The system which generated this result transmitted reference range: 166 - 358 10*3/?L. The reference range was not used to interpret this result as normal/abnormal. MPV (test code = 85914-9) 11.0 fL 9.5-12.9 NRBC/100 WBC (test code = 3057486321) See_Comment [Automated [employer] ssage] The system which generated this result transmitted reference range: 0.0 - 10.0 /100 WBCs. The reference range was not used to interpret this result as normal/abnormal. NRBC x10^3 (test code = 4182692053) See_Comment [Automated messa ge] The system which generated this result transmitted reference range: 10*3/?L. The reference range was not used to interpret this result as normal/abnormal. GRAN MAT (NEUT) % (test code = 770-8) 66.5 % IMM GRAN % (test code = 6935148493) 0.80 % LYMPH % (test code = 736-9) 21.8 % MONO % (test code = 5905-5) 7.3 % EOS % (test code = 713-8) 2.8 % BASO % (test code = 706-2) 0.8 % GRAN MAT x10^3(ANC) (test code = 2819925118) 7.14 10*3/uL 1.88-7.09 H IMM GRAN x10^3 (test code = 5668625436) 0.09 10*3/uL 0.00-0.06 H LYMPH x10^3 (test code = 731-0) 2.35 10*3/uL 1.32-3.29 MONO x10^3 (test code = 742-7) 0.79 10*3/uL 0.33-0.92 EOS x10^3 (test code = 711-2) 0.30 10*3/uL 0.03-0.39 BASO x10^3 (test code = 704-7) 0.09 10*3/uL 0.01-0.07 H Lab Interpretation (test code = 94919-8) [facility]normal [facility] [id number] 16:47:33* Test Item Value Reference Range Interpretation Comments TROPONIN I (test code = 0727232781) 0.005 ng/mL See_Comment [Automated message] The system [...] of biotin. Lab Interpretation (test code = 78145-0) Normal [facility]OLIC PANEL (48343)2022-05-29 16:36:15* Test Item Value Reference Range Interpretation Comme nts NA (test code = 0657579461) 137 mmol/L 135-145 K (test code = 2595695760) 4.4 mmol/L 3.5-5.0 CL (test code = 5982384763) 100 mmol/L 98-108 CO2 TOTAL (test code = 4050771553) 22 mmol/L 23-31 L AGAP (test code = 6856281180) 2-16 BUN (test code = 6675709580) 14 mg/dL 7-23 GLUCOSE (test code = 3772964840) 190 mg/dL 70-110 H CREATININE (test code = 4227891719) 0.70 mg/dL 0.50-1.04 TOTAL BILI (test code = 8133801568) 0.3 mg/dL 0.1-1.1 CALCIUM (test code = 0753970418) 9.6 mg/dL 8.6-10.6 T PROTEIN (test code = 4669359283) 6.8 g/dL 6.3-8.2 ALBUMIN (test code = 3907723013) 4.2 g/dL 3.5-5.0 ALK PHOS (test code = 3268324265) 67 U/L 34-122 ALTv (test code = 1742-6) 40 U/L 5-35 H AST(SGOT) (test code = 4809551943) 44 U/L 13-40 H eGFR (test code = 3829453270) mL/min/1.73m2 DENISHA (test code = DENISHA) Association [...] imaging tests). Lab Interpretation (test code = 48327-7) [facility]normal [facility] 16:35:55* Test Item Value Reference Range Interpretation Comme nts LIPASE (test code = 0610012588) 85 U/L 0-220 Lab Interpretation (test cod e = 68195-9) Normal [facility] WITH [id number] 16:18:33* Test Item Value Reference Range Interpretation Comme nts WBC (test code = 6690-2) See_Comment [Automated messa ge] The system which generated this result transmitted reference range: 4.30 - 11.10 10*3/?L. The reference range was not used to interpret this result as normal/abnormal. RBC (test code = 789-8) See_Comment [Automated messa ge] The system which [...] 32.7 g/dL 31.6-35.1 RDW-SD (test code = 68103-3) 43.2 fL 39.0-49.9 RDW-CV (test code = 788-0) 15.1 % 12.0-15.5 PLT (test code = 777-3) See_Comment [Automated messa ge] The system which generated this result transmitted reference range: 166 - 358 10*3/?L. The reference range was not used to interpret this result as normal/abnormal. MPV (test code = 19250-4) 10.3 fL 9.5-12.9 NRBC/100 WBC (test code = 5137435086) See_Comment [Automated [employer] ssage] The system which generated this result transmitted reference range: 0.0 - 10.0 /100 WBCs. The reference range was not used to interpret this result as normal/abnormal. NRBC x10^3 (test code = 0143129041) See_Comment [Automated messa ge] The system which generated this result transmitted reference range: 10*3/?L. The reference range was not used to interpret this result as normal/abnormal. GRAN MAT (NEUT) % (test code = 770-8) 66.7 % IMM GRAN % (test code = 1703967305) 0.80 % LYMPH % (test code = 736-9) 23.3 % MONO % (test code = 5905-5) 5.2 % EOS % (test code = 713-8) 3.0 % BASO % (test code = 706-2) 1.0 % GRAN MAT x10^3(ANC) (test code = 1496088025) 6.50 10*3/uL 1.88-7.09 IMM GRAN x10^3 (test code = 3980546188) 0.08 10*3/uL 0.00-0.06 H LYMPH x10^3 (test code = 731-0) 2.27 10*3/uL 1.32-3.29 MONO x10^3 (test code = 742-7) 0.51 10*3/uL 0.33-0.92 EOS x10^3 (test code = 711-2) 0.29 10*3/uL 0.03-0.39 BASO x10^3 (test code = 704-7) 0.10 10*3/uL 0.01-0.07 H Lab Interpretation (test code = 38799-6) Abnormal [facility] HEMOGLOBIN A1C [id number] 21:18:00* Test Item Value Reference Range Interpretation Comme [facility] POCT HBA1C (test code = 4548-4) 7.5 % 4-6 A Lab Interpretation (test cod e = 84971-0) Abnormal [facility] HEMOGLOBIN A1C [id number] 21:18:00* Test Item Value Reference Range Interpretation Comme [facility] POCT HBA1C (test code = 4548-4) 7.5 % 4-6 A Lab Interpretation (test cod e = 22325-4) Abnormal [facility] Notes Date/Time Note Provider Source 2025-03-01 18:45:00 Pt pharmacy is requesting for the the second time a refill on tizanidine 4mg tablets. Briana Morales MA [facility] 2025-02-27 12:48:58 Requesting Rx refill [facility] 2025-02-26 11:26:42 Received clinical notes from [facility] and have placed in provider's box for signature. Khalida Payton [facility] 2025-02-21 13:10:19 Called pt to let her know that Dr. Witt states she needs an appointment, it has been over a year. Pt understood and would call and make an appointment. Nikki Ram [facility] 2025-02-21 12:58:15 Ilsa Johnson is a 64 year old female PT calling about referral placed on 02/16/[address] Witt. Please review. Tosin Johnson [facility] 2025-02-17 10:38:[address] Referral if approved Gabi Kirkland MA [facility] 2025-02-16 16:19:24 Copied from COUNTS INCLUDE 234 BEDS AT THE [facility] #[id number]. Topic: Clinical - Referral >> Feb 16, 2025 4:17 PM Patient Forming Operator wrote: Ilsa Johnson is a 64 year old female Patient is calling requesting a INTERNAL referral for Neurosurgery. Patient request a call back once referral has been ordered. A referral authorization approval with patients insurance (CIGNA/CIGNA HMO) is needed as well. Please advise Ilsa Johnson is a 64 year old female is requesting a referral to: Dept: Neurosurgery Reason for Referral: Lower Back Pain Duration of problem: unknown Internal / External referral: Internal Name of provider / location patient requesting: Neurosurgery - [address], [address], [place] [address] Appt already scheduled?: No If yes, Date of Appt: n/a Yoel Holder [facility] 2024-12-27 09:55:23 Called number on file. As per Dr. Riddle, pt is to be seen again in to be reevaluated. Pt voiced understanding. Magdalene Julio RN 12/27/2024 9:57 AM Magdalene Julio RN [facility] 2024-12-27 09:12:45 Unable to simply prescribe something. Unclear what is triggering worsening. Patient will need to be seen. [facility] 2024-12-26 17:59:51 Please advise Briana Morales MA [facility] 2024-12-26 15:53:46 Ilsa Johnson is a 64 year old female calling to see if Dr can prescribe something for her worsening symptoms.Pt had appt on 12/21 and say since then has gotten fever and is coughing up green mucus.Pt was offered another appt but she declined [id number] - [place], [place] - [address] [facility] [employer] [facility] [address] [place] [address] Essie York [facility] 2024-12-22 12:04:14 Provider who saw patient is not in office today. Called and spoke with patient recommended symptomatic treatment with OTC medications for her cold symptoms, she would like antibiotics to be called in. She states this morning she felt like she was going to pass out with SOB but not having those symptoms at this time. Educated that antibiotics do not treat laryngitis/viruses. She states understanding. ER precautions discussed. LITIGATION LEGAL ASSISTANT-FAMILY MIDLEVEL PROVIDER [facility] 2024-12-22 10:46:34 Pt is calling back to check on her request for an antibiotic. She is trying to see if a prescription can be sent in this morning. Juany Bower [facility] 2024-12-22 09:45:45 Called and spoke w/ pt. Pt stated she has had a fever, SOB and feels as if she's going to pass out. Asked pt to please got to ER if her symptoms begin to worsen. Please advise. Halley Grier MA [facility] 2024-12-22 09:26:20 Ilsa Johnson is a 64 year old female calling wanting to speak with a nurse about getting antibiotic. Pt was seen yesterday in the urgent care and says she wasn't prescribed anything. Pts says she woke up feeling flushed and hot with a fever of 101. Essie York [facility] 2024-12-22 07:58:43 Ilsa Johnson is a 64 year old female and the pt is calling to request a nurse call for her current symptoms. Pt states she has Laryngitis and was seen yesterday but not given any antibiotics. Pt states woke up this morning with 101 fever and would like antibiotics. Callback #: [phone] Please contact and advise. Nadia Leos [facility] 2024-11-08 18:12:22 Last Refilled: Disp Refills Start End JOANNE amLODIPine 10 mg tablet 30 tablet 0 10/20/2024 -- No Sig: TAKE 1 TABLET BY MOUTH IN THE MORNING Sent to pharmacy as: amLODIPine 10 mg tablet (NORVASC) Class: eRX Notes to Pharmacy: Appointment needed Route: Oral Order: [id number] Date/Time Signed: 10/20/2024 10:46 E-Prescribing Status: Receipt confirmed by pharmacy (10/20/2024 10:47 AM CDT) Disp Refills Start End JOANNE carvediloL 6.25 mg tablet 180 tablet 1 05/11/2024 -- No Sig: TAKE 1 TABLET BY MOUTH IN THE MORNING AND IN THE EVENING WITH FOOD Sent to pharmacy as: carvediloL 6.25 mg tablet (COREG) Class: eRX Order: [id number] Date/Time Signed: 05/11/2024 07:51 E-Prescribing Status: Receipt confirmed by pharmacy (05/11/2024 7:51 AM CDT) Notes: please review Recent Visits Date Type Provider Dept 12/02/23 [...] authorizing provider and meeting all other requirements Maggie Schreiber RN [facility] 2024-10-27 13:48:36 Received fax requesting one touch verio touch strips and meter, per provider okay to send in. Ana Reardon RN [facility] 2024-10-25 14:13:31 Halley victoria hernandez is calling back about the script for TRUE METRIX glucose strips. She stated the insurance has a specific brand for coverage and in order to process the order they need a new script. She is asking for a script for One touch ultra machine with all supplies. [id number] - [place], [place] - [address] [facility] & [employer] [place] [facility] [address] [place] [address] Juany Bower [facility] 2024-10-24 10:41:19 Please review and advise. JULIO 12/25/23 NOV 04/07/25 Melanie Stanley LVN [facility] 2024-10-24 10:39:18 ANA for True Metrix Glucose strips initiated on 10/24/2024 (Hayden: [id number]) PA Outcome Denied on October 24 by [employer] Medicare 2016 This product is not eligible for coverage under your Medicare Part D benefit, however, coverage may be available under Medicare Part A or B. [facility] 2024-10-21 15:52:22 Bert Hernandez is requesting a new prescription to replace the TRUE METRIX GLUCOSE TEST STRIP strip due to insurance no longer covering that prescription. [id number] - [place], [place] - [address] [facility] [employer] [facility] [employer] [address] [place] [address] Ras Moya [facility] 2024-10-05 08:27:47 reviewed dental clearance, fax sent to [facility] waiting for confirmation. STICS OFFICER Glenys Spicer MA [facility] 2024-10-04 15:22:30 Fax received from [facility], will place in MD folder for review. STICS OFFICER Glenys Spicer MA [facility] 2024-10-04 10:42:08 Ilsa Johnson is a 64 year old female Kim from [facility] is sending over clearance request she says the pt is in desperate need of dental work PH [phone] ext [phone] Fx [phone] ON Paredes [facility] 2024-08-10 11:34:22 Images from the original note were not included. Notes: MUST BE SEEN FOR FURTHER REFILLS Last Refilled: Name from pharmacy: AMLODIPINE BESYLATE 10MG TABLETS Will file in chart as: AMLODIPINE 10 mg tablet Sig: TAKE 1 TABLET BY MOUTH IN THE MORNING Disp: 90 tablet Refills: 1 (Pharmacy requested: Not specified) Start: 08/10/2024 Class: eRX For: Essential hypertension Last ordered: 5 months ago (02/15/2024) by Jefferson Witt MD Last refill: 05/11/2024 Rx #: [id number]|1|0|1 Calcium Channel Blockers Lzcdrl8808/10/2024 05:45 AM Protocol Details Valid encounter within last 12 months To be filled at: [facility] #[id number] - [place], [place] - [address] AT [employer] [facility] [employer] Recent Visits Date Type Provider Dept 12/02/23 [...] authorizing provider and meeting all other requirements ON Sage MA [facility] 2024-07-12 14:13:48 Last Refilled: Disp Refills Start End JOANNE FUROSEMIDE 80 mg tablet 30 tablet 5 04/13/2023 -- No Sig: TAKE 1 TABLET BY MOUTH IN THE MORNING Sent to pharmacy as: furosemide 80 mg tablet (LASIX) Class: eRX Route: Oral Order: [id number] Date/Time Signed: 04/13/2023 08:49 E-Prescribing Status: Receipt confirmed by pharmacy (04/13/2023 8:49 AM CDT) Notes: Recent Visits Date Type Provider Dept 12/02/23 Office Visit Jefferson Witt MD [facility] 11/09/23 Office Visit Jefferson Witt MD [facility] 10/14/23 Office Visit Jefferson Witt MD [facility] 07/09/23 Office Visit Carla Velasco MD [facility] 07/01/23 Office Visit Jefferson Witt MD [facility] 05/11/23 Office Visit Jefferosn Witt MD [facility] 04/08/23 [...] authorizing provider and meeting all other requirements Rn Office Visit on 11/09/2023 Component Date Value K 11/09/2023 4.8 WBC 11/09/2023 9.17 RBC 11/09/2023 4.49 HGB 11/09/2023 10.0 (L) HCT 11/09/2023 34.1 (L) MCH 11/09/2023 22.3 (L) MCV 11/09/2023 75.9 (L) MCHC 11/09/2023 29.3 (L) PLT 11/09/2023 321 MPV 11/09/2023 11.6 RDW-CV 11/09/2023 16.5 (H) RDW-SD 11/09/2023 45.3 NRBC x10 3 11/09/2023 <0.01 NRBC/100 WBC 11/09/2023 0.0 Rn Office Visit on 10/14/2023 Component Date Value NA 10/14/2023 138 K 10/14/2023 3.0 (L) CL 10/14/2023 96 (L) CO2 TOTAL 10/14/2023 32 (H) AGAP 10/14/2023 10 BUN 10/14/2023 13 GLUCOSE 10/14/2023 186 (H) CREATININE 10/14/2023 0.76 TOTAL BILI 10/14/2023 0.5 CALCIUM 10/14/2023 8.6 T PROTEIN 10/14/2023 6.5 ALBUMIN 10/14/2023 3.7 ALK PHOS 10/14/2023 64 ALTv 10/14/2023 13 AST(SGOT) 10/14/2023 23 eGFR 10/14/2023 88.7 CHOL 10/14/2023 107 (L) HDL 10/14/2023 22 (L) HDLC RATIO 10/14/2023 4.9 (H) TRIG 10/14/2023 262 (H) LDL CHOL 10/14/2023 33 VLDL 10/14/2023 52 TSH 10/14/2023 1.65 HGB A1C 10/14/2023 8.0 (H) Office Visit on 10/14/2023 Component Date Value WBC 10/14/2023 8.93 RBC 10/14/2023 4.15 HGB 10/14/2023 9.5 (L) HCT 10/14/2023 31.7 (L) MCV 10/14/2023 76.4 (L) MCH 10/14/2023 22.9 (L) MCHC 10/14/2023 30.0 (L) RDW-SD 10/14/2023 47.4 RDW-CV 10/14/2023 17.2 (H) PLT 10/14/2023 334 MPV 10/14/2023 11.5 NRBC/100 WBC 10/14/2023 0.0 NRBC x10 3 10/14/2023 <0.01 GRAN MAT (NEUT) % 10/14/2023 52.8 IMM GRAN % 10/14/2023 0.80 LYMPH % 10/14/2023 29.1 MONO % 10/14/2023 5.3 EOS % 10/14/2023 10.9 BASO % 10/14/2023 1.1 GRAN MAT x10 3 (ANC) 10/14/2023 4.72 IMM GRAN x10 3 10/14/2023 0.07 (H) LYMPH x10 3 10/14/2023 2.60 MONO x10 3 10/14/2023 0.47 EOS x10 3 10/14/2023 0.97 (H) BASO x10 3 10/14/2023 0.10 (H) Rn Office Visit on 08/14/2023 Component Date Value WBC 08/14/2023 8.18 RBC 08/14/2023 4.38 HGB 08/14/2023 9.8 (L) HCT 08/14/2023 32.4 (L) MCV 08/14/2023 74.0 (L) MCH 08/14/2023 22.4 (L) MCHC 08/14/2023 30.2 (L) RDW-SD 08/14/2023 46.1 RDW-CV 08/14/2023 17.4 (H) PLT 08/14/2023 333 MPV 08/14/2023 10.2 NRBC/100 WBC 08/14/2023 0.0 NRBC x10 3 08/14/2023 <0.01 GRAN MAT (NEUT) % 08/14/2023 53.9 IMM GRAN % 08/14/2023 0.60 LYMPH % 08/14/2023 30.4 MONO % 08/14/2023 7.5 EOS % 08/14/2023 6.1 BASO % 08/14/2023 1.5 GRAN MAT x10 3 (ANC) 08/14/2023 4.41 IMM GRAN x10 3 08/14/2023 0.05 LYMPH x10 3 08/14/2023 2.49 MONO x10 3 08/14/2023 0.61 EOS x10 3 08/14/2023 0.50 (H) BASO x10 3 08/14/2023 0.12 (H) IRON 08/14/2023 37 (L) Office Visit on 07/10/2023 Component Date Value POCT HBA1C 07/10/2023 7.5 (A) ON Schreiber RN [facility] 2024-04-13 10:35:01 Images from the original note [...] Witt MD Last refill: 01/06/2024 Rx #: [id number]|1|0|1 Cardiovascular: CHAZ Inhibitors Kqfvpj5004/13/2024 10:20 AM Protocol Details Valid encounter within last 12 months K in normal range and within 360 days Cr in normal range and within 360 days To be filled at: [facility] #[id number] - [place], [place] - [address] AT [employer] [facility] [employer] Recent Visits Date Type Provider Dept 12/02/23 [...] meeting all other requirements Flakita Sage MA [facility] 2024-02-15 14:42:44 Medication refilled per policy: Last office visit: 12/25/23 Next office visit: 05/13/24 Requested Prescriptions Pending Prescriptions Disp Refills Insulin [place], Disposable, (BD ULTRAFINE III MINI PEN) 31 gauge x 10/16" Ndle [Pharmacy Med Name: B-D PEN NDL MINI [id number](10/16)PRPL] 400 Each 1 Sig: USE FOUR TIMES DAILY DIRECTED Last fill date: 07/10/23 Labs: HGB A1C (%) Date Value 10/14/2023 8.0 (H) Notes: Type 2 diabetes mellitus without complication, with long-term current use of insulin E11.9 Melanie Stanley LVN [facility] 2024-02-15 09:29:31 Images from the original note [...] Witt MD Last refill: 11/30/2023 Rx #: [id number]|1|0|1 Provider Review Required Vmahjo7202/13/2024 05:45 AM Protocol Details This refill cannot be delegated Valid encounter within last 12 months To be filled at: [facility] #[id number] - [place], [place] - [address] AT [employer] [facility] [employer] Recent Visits Date Type Provider Dept 12/02/23 [...] and meeting all other requirements [facility] 2024-02-12 09:34:17 Mira with [facility] is notifying the clinic that the patient cancelled re certification appointment due to going to the ER for abdominal pain. Ras Moya [facility] 2024-01-26 12:00:40 From: Ilsa Johnson To: Office of Jefferson Witt Sent: 01/26/2024 11:24 AM CDT Subject: Medication Renewal Request Refills have been requested for the following medications: clonazePAM 1 mg tablet [Jefferson Witt] Preferred pharmacy: [facility] [address] [place] [address] [address] [facility] [address] [place] [employer] Delivery method: Pickup [facility] 2024-01-14 15:40:58 [place] [facility] 2024-01-14 15:09:28 Ilsa Johnson is a 63 year old female Vanessa with [facility] is calling to check status of a wound care order that they were needing signed. They sent it through suture sign in October. She is going to upload it again. Sarah Quinonez [facility] 2024-01-01 14:34:[address] Antoine [facility] 2023-12-31 15:48:39 Spoke to patient over the phone. Emphasized lifestyle modifications. Patient with h/o pancreatitis, but had gallstones that time. It may be difficult to institute GLP-1 agonist. Patient is also worried about UTI and yeast infection, so difficulty with SGLT-2i. Sometimes she's on antibiotics. Will discuss with Dr. Antoine. Kendell Fritz MD, PGY-4 Endocrinology Fellow [facility] 2023-12-29 14:40:10 From: Ilsa Johnson To: Office of Jefferson Witt Sent: 12/29/2023 2:39 PM CDT Subject: Medication Renewal Request Refills have been requested for the following medications: clonazePAM 0.5 mg tablet [Jefferson Witt] [id number] [place] [address] [address] [facility] [address] [facility] Delivery method: Pickup Recent Visits Date Type [...] Cbc Fam Med 03/26/23 Office Visit Jefferson Wtit MD Ang-Db [facility] 02/11/23 Office Visit Jefferson Witt MD Ang-Db [facility] 12/22/22 Office Visit Cande Daniel, ENGAGEMENT MANAGER Ang-Db [facility] Showing recent visits within past 540 days with a meds authorizing provider and meeting all other requirements Future Appointments No visits were found meeting these conditions. Showing future appointments within next 150 days with a meds authorizing provider and meeting all other requirements T [facility] 2023-12-29 08:08:41 Ilsa Johnson is a 63 year old female Pt is calling requesting to switch from metformin and tresiba to ozempic, she states that the metformin isn't bringing her sugar down enough. Please advise. T Michelle Johnson [facility] 2023-12-23 06:11:50 OK, she has been on these a long time. T [facility] 2023-12-22 10:23:19 [facility] [phone] Reporting medication interactions between KCL 20 mEq tablet and spironolactone 25 mg tablet aldactone interacts with potassium COREG interacts with DULERA inhaler Albuterol interacts with her COREG Therapist states provider may already be aware but she is required to make the notification. Please F/u if necessary Tramaine Marrero [facility] 2023-12-22 08:26:09 Sending patient swabrt message. She needs to be seen but clinic has cancelled 2 future follow ups she had scheduled due to provider being out. Patient's blood sugars are running high and she is wanting to start back on Jardiance but she needs to be seen first. Parul Gould LVN [facility] 2023-12-21 11:55:05 Ilsa Johnson is a 63 year old female Patient is calling stating she would like to go ahead and be prescribed Jardiance. Stating blood sugars are in between 200-300 at night with the metformin. Please advise [facility][id number] - [place], [place] - [address] AT [employer] [address] [place] [address] Ortiz Greene [facility] 2023-12-15 16:16:45 Medication refilled per policy: Last office visit: 12/02/23 Next office visit: 01/14/24 Requested Prescriptions Pending Prescriptions Disp Refills spironolactone 25 mg tablet 180 tablet 0 Sig: Take 1 tablet by mouth every morning and evening. Last fill date: 09/15/23 Labs: Recent Labs 10/14/23 1315 NA 138 CREATININE (mg/dL) Date Value 10/14/2023 0.76 K (mmol/L) Date Value 11/09/2023 4.8 Notes: Leg edema [facility] 2023-12-15 16:16:41 From: Ilsa oJhnson To: Office of Jefferson Witt Sent: 12/15/2023 4:08 PM CDT Subject: Medication Renewal Request Refills have been requested for the following medications: spironolactone 25 mg tablet [Jefferson Witt] Preferred pharmacy: [facility] #[id number] - [place] - [address] AT [employer] [address] [employer] Delivery method: Pickup [facility] 2023-12-15 13:31:04 Faxed office notes from 12/02/23 to [phone] Gabi Kirkland MA [facility] 2023-12-15 11:31:36 Ilsa Johnson is a [address] [facility] clinic called back stating they still need the clinicals from 12/01. Please contact [phone] Hero Samuel [facility] 2023-12-15 10:15:36 Completed forms faxed to Dr. Ivory at [phone] Nereida Pierce LVN 12/15/2023 10:15 AM T [facility] 2023-12-15 09:42:05 Forms placed in Witt box for signature. T [facility] 2023-12-15 08:51:38 Notified patient we still have not received forms for diabetic shoes. She verbalized understanding. Is going to call the Office and have them re-faxed. Talked to Genevieve with Dr. Shelton and had them re-fax forms Nereida Pierce LVN 12/15/2023 8:52 AM [facility] 2023-12-15 08:49:29 Copied from COUNTS INCLUDE 234 BEDS AT THE [facility] #[id number]. Topic: Clinical - Medical Advice >> December 15, 2023 8:46 AM Patient Forming Operator wrote: Ilsa Johnson is a 63 year old female Genevieve with Dr. Shelton is calling to check on status of forms that were faxed and re faxed today. Forms require providers signatuere for diabetic shoes Please advise Dr. Hadadd PH. [phone] Shahida Arredondo [facility] 2023-12-15 08:48:01 Copied from COUNTS INCLUDE 234 BEDS AT THE [facility] #[id number]. Topic: Clinical - Paperwork/Forms >> December 15, 2023 8:45 AM Patient Forming Operator wrote: Patient is requesting an update on forms for diabetic shoes. Patient states that she needs this shoes as soon as possible. Ras Moya [facility] 2023-12-14 17:16:23 See pt's MyChart Message. Kendell Fritz MD, PGY-4 Endocrinology Fellow [facility] 2023-12-11 10:33:30 Per JULIO 07/10/23 Glipizide was d/c. Please see encounter on 08/07/23 regarding Glipizide being restarted. Please send refill if appropriate. Pt needs to schedule an appt. Appt was cancelled by clinic for upcoming appt on 12/31 and 01/07 d/t provider being out of office. Helena Pro LVN [facility] 2023-12-11 09:24:08 Ilsa Johnson is a 63 [...] assist with refill and appt. Shanelle Strange [facility] 2023-12-09 14:15:18 Orders to assess and admit for PT have been faxed to [facility] at [phone] Nereida Pierce LVN 12/09/2023 2:15 PM [facility] 2023-12-09 13:30:51 Still awaiting forms. Not in clinscan2 [facility] 2023-12-09 11:45:30 Ilsa Johnson is a 63 year old female Genevieve with Dr. Shelton is calling to check on status of forms that were faxed and re faxed today. Forms require providers signatuere for diabetic shoes Please advise [phone] (home) Genevieve with Dr. Shelton [employer] [address] [place], [place] [address]Cam [facility] [address] Fax Steph Ayers [facility] 2023-12-08 13:43:58 JULOI 07/10/2023 NO Appt scheduled On JULIO 07/10/2023 note the provider has Stop glipizide in pt chart note. So refill denied Pt also needs appt scheduled for follow up. Madyson Rivera MA [facility] 2023-12-08 12:42:05 Spoke with patient and advised her we have not received orders for Diabetic shoes. She will reach out to [employer] and have them re-fax forms to [phone]. Further advised patient we had submitted orders for HH. She reports she had requested PT so she can walk again. Advised patient I will need to get Dr. Witt to sign orders tomorrow and I will fax them over. She verbalized understanding. Nereida Pierce LVN 12/08/2023 12:43 PM [facility] 2023-12-08 12:09:30 Copied from COUNTS INCLUDE 234 BEDS AT THE [facility] #[id number]. Topic: Clinical - Medical Advice >> December 08, 2023 12:08 PM Patient Forming Operator wrote: Ilsa Johnson is a 63 year old female Patient calling back and asking if clinic has received any paperwork for patient's diabetic shoes and supplies - please advise and call patient to assist. [phone] (home) Leeanne Ventura [facility] 2023-12-08 10:50:58 Copied from COUNTS INCLUDE 234 BEDS AT THE [facility] #[id number]. Topic: Clinical - Order >> December 08, 2023 10:50 AM Patient Forming Operator wrote: Pt called requesting to speak with a nurse in regards to HH orders. Please advise. Call back number:[phone]. Madyson Alas [facility] 2023-12-08 07:46:55 [place] [facility] 2023-12-07 11:22:32 Ilsa Johnson is a 63 year old female Pt requesting orders for therapy from [facility]. [facility] [phone] Becca Colon [facility] 2023-12-01 11:57:45 Please review previous note Notes: 11/02/23 Last Refilled: [facility] #[id number] - [place], [place] - [address] AT [employer] [address] Recent Visits Date Type Provider Dept 11/09/23 [...] meeting all other requirements Rebecca Francis MA [facility] 2023-12-01 11:18:06 Ilsa Johnson is a 63 year old female patient requesting refill on her clonazepam. States the pharmacy she normally uses does not have or will not fill the 120 of the 1 mg. The [facility] currently has this medication, but only the 0.5 mg. If possible she would like the order to go to the [place] pharmacy, but for 240 of the 0.5. If not she said she would be fine with the 120 as long as she can get the medication. Please advise. [facility][id number] - [place], [place] - [address] [facility] & [address] [facility] [phone] T [facility] 2023-12-01 10:51:24 Attempted to contact patient. No answer. Left message to call back. Patient has appt tomorrow will address then. [facility] 2023-12-01 09:51:26 Copied from COUNTS INCLUDE 234 BEDS AT THE [facility] #[id number]. Topic: Clinical - Medical Advice >> Dec 01, 2023 9:50 AM Patient Forming Operator wrote: Ilsa Johnson is a 63 year old female Pt is requesting for her latest lab results to be sent to: [facility] PH.[phone] [place], [place] Shahida Arredondo [facility] 2023-11-30 07:09:21 Last Refilled: Recent Visits Date [...] Fam Med 01/14/24 Appointment Jefferson Witt MD AngTaraDb [facility] Fam Med Showing future appointments within next 150 days with a meds authorizing provider and meeting all other requirements [facility] 2023-11-28 08:43:00 Regarding: face swelled up and [...] however she is requesting to see the on Thursday morning Priti Robles RN [facility] 2023-11-28 08:43:00 Adult Triage Assessment Last Clinic [...] in. or 5 cm) Protocols used: Face Zkcpyjqz-FHVED-OL T [facility] [employer] 2023-11-23 10:18:27 FYI T [facility] 2023-11-23 10:07:39 Ilsa Johnson is a 63 year old female Anna ORTIZ RN called stating pt is being discharge 11/22 & wound on left heel has been resolve. Please advise Thank you Rayray Couch [facility] 2023-11-17 08:10:43 From: Ilsa Johnson To: Office of Jefferson Witt MD Sent: 11/17/2023 8:10 AM CDT Subject: Medication Renewal Request Refills have been requested for the following medications: CARVEDILOL 6.25 mg tablet [Jefferson Witt] Preferred pharmacy: [id number] - [place], [place] - [address] AT [employer] [facility] [address] [employer] [place] [facility] Delivery method: Pickup [facility] 2023-11-12 15:55:17 Please review and advise [facility] 2023-11-12 15:49:15 Ilsa Johnson is a 63 year old female that states she has been taking antibiotics for a couple of weeks. The pt states that she has a yeast infection and is asking if Dr. Witt will send a prescription to the pharmacy. Nothing over the counter has helped. (Vaginal itching) Please assess/advise. [id number] - [place], [place] - [address] AT [employer] [facility] [address] [employer] [place] [address] [place] [address] Stephanie Crespo [facility] 2023-11-11 14:02:59 Images from the original note were not included. Contacted patient. Patient notified of results per provider. Verbalized understanding. Good potassium, slight improvement in anemia Written by Jefferson Witt MD on 11/10/2023 6:16 AM CDT Seen by patient Ilsa Johnson on 11/10/2023 6:57 AM Nereida Pierce LVN 11/11/2023 2:03 PM [facility] 2023-11-11 13:49:02 Ilsa Johnson is a 63 year old female Pt called regarding lab results stating that some test are low and some are high. Pt was wanting to know if there is any concerns, pt states that she is worried because she feels week and tired. Please advise. Odin Moya [facility] 2023-11-11 09:21:03 Copied from COUNTS INCLUDE 234 BEDS AT THE [facility] #[id number]. Topic: Clinical - Results >> Nov 11, 2023 9:19 AM Patient Forming Operator wrote: Pt calling clinic wanting to speak with a nurse about her lab results Essie York [facility] 2023-11-09 14:15:00 Images from the original note were not included. Venipuncture collection performed by clean technique on the left anticubitus. Total of 1 attempts were made. Slight pressure and a bandage/dressing were applied to the site(s). The patient experienced no complications. The following specimens were processed according to instructions and sent to [facility] laboratories per lab order on 11/09/2023 : LT BLUE SST 1 RED LAV 1 PPT DK GREEN (LiHep) DK GREEN (SodH) PRINCE DK BLUE (K2) DK BLUE (S) ACD Blood Culture NIPT/NTD [facility] 2023-11-06 08:35:40 LVm to offer appt with LITIGATION LEGAL ASSISTANT or PA, Dr. Witt off today Nani Waldron [facility] 2023-11-04 22:16:34 Ilsa Johnson is a 63 year old female Is calling because she wanted to see if she can come in on or Thursday 5 she has painful sores in her mouth and can't wait until Thursday when her appointment is, please assist [phone] Alexandre Campos [facility] 2023-11-03 13:45:40 Received lab results from [email or web address]. Placed in the providers box. Nani Mccauley [facility] 2023-11-02 07:07:37 From: Ilsa Johnson To: Office of Jefferson Witt MD Sent: 11/01/2023 7:05 PM CDT Subject: Medication Renewal Request Refills have been requested for the following medications: clonazePAM 1 mg tablet [Jefferson Witt] [id number] [place], [place] [address] [facility] [employer] [address] [employer] Delivery method: Pickup Recent Visits Date Type Provider Dept 10/14/23 Office Visit Jefferson Witt MD Ang-Db [...] AngTaraDb Cbc Fam Med 11/12/22 Office Visit Witt, MD Kalyan Paulino Fam Med Showing recent visits within past 540 days with a meds authorizing provider and meeting all other requirements Future Appointments Date Type Provider Dept 01/14/24 Appointment Jefferson Witt MD Ang-Db [facility] F[facility] Showing future appointments within next 150 days with a meds authorizing provider and meeting all other requirements [facility] [employer] 2023-10-20 08:23:54 Addended by: NEREIDA PIERCE on: 10/20/2023 08:23 AM Modules accepted: Orders [facility] 2023-10-20 08:21:19 Outpatient Medication Detail Disp Refills Start End JOANNE nystatin 100,000 unit/mL suspension 120 mL 0 10/20/2023 -- No Sig: Take 5 mL by mouth 4 (four) times daily. Sent to pharmacy as: nystatin 100,000 unit/mL oral suspension (NILSTAT) Class: eRX Route: Oral Order: [id number] Date/Time Signed: 10/20/2023 08:21 E-Prescribing Status: Receipt confirmed by pharmacy (10/20/2023 8:21 AM CDT) Associated Diagnoses Thrush, oral - Primary Order Associated Providers Name NPI Ordering Provider Jefferson Witt MD [[id number]] [id number] Authorizing Provider Jefferson Witt MD [[id number]] [id number] Order Mode Info Action Created on Order Mode Entered by Responsible Provider Signed by Signed on Ordering 10/20/23 0821 Standing Delegated Orders Nereida Pierce LVN Rogers, Anthony, MD Pharmacy [facility] #[id number] - [place], [place] - [address] AT [employer] [address] [employer] Left patient detailed, private voicemail informing her of the above medication being called in. [facility] 2023-10-20 06:26:32 Nystatin suspension . 5cc swish and swallow Qid, ! BOTTLE. [facility] 2023-10-19 10:00:31 Please review and advise. [facility] 2023-10-19 09:53:54 Copied from COUNTS INCLUDE 234 BEDS AT THE [facility] #[id number]. Topic: Clinical - Medical Advice >> Oct 19, 2023 9:52 AM Patient Forming Operator wrote: Ilsa Johnson is a 63 year old female Anna with [employer] is calling stating patient is receiving Vancomycin through IV and has pain to her tongue with white patches - asking if Dr. Witt wants to order any other medications [phone] Leeanne Ventura [facility] 2023-10-15 09:21:44 Images from the original note were not included. Spoke to patient and relayed lab results. Advised patient to begin taking OTC iron supplement 325 mg as ell as KCL20 MeQ twice daily that has been sent to [facility] in [place]. She verbalized understanding and does not have [...] AM Nereida Pierce LVN 10/15/2023 9:24 AM [facility] 2023-10-15 09:00:11 I think its 325 [facility] 2023-10-15 08:14:26 Dosage? [facility] 2023-10-15 08:02:49 Daily otc iron [facility] 2023-10-15 07:51:16 Images from the original note were not included. Anemia, slightly worse. Written by Jeffesron Witt MD on 10/15/2023 6:09 AM CDT Seen by patient Ilsa Johnson on 10/15/2023 7:34 AM Please advise on what patient needs to take or do for anemia [facility] 2023-10-15 07:42:56 Ilsa Johnson is a 63 year old female that would like to speak with a nurse about her lab results, especially, the low iron. She's asking for clarification of what she needs to take. Please advise. Stephanie Crespo [facility] 2023-10-14 13:15:00 Images from the original note were not included. Venipuncture collection performed by clean technique on the right anticubitus. Total of 1 attempts were made. Slight pressure and a bandage/dressing were applied to the site(s). The patient experienced no complications. The following specimens were processed according to instructions and sent to [facility] laboratories per lab order on 10/14/2023: LT BLUE SST 1 RED LAV 2 PPT DK GREEN (LiHep) DK GREEN (SodH) PRINCE DK BLUE (K2) DK BLUE (S) ACD Blood Culture NIPT/NTD Daysi Jay [facility] 2023-10-14 13:15:00 Addended by: NEREIDA PIERCE on: 10/15/2023 09:19 AM Modules accepted: Orders [facility] 2023-10-09 08:49:15 From: Ilsa Johnson To: Office of Jefferson Witt MD Sent: 10/09/2023 8:35 AM LOGISTICS OFFICER Subject: Medication Renewal Request Refills have been requested for the following medications: ALBUTEROL 90 mcg/actuation inhaler [Jefferson Witt] Preferred pharmacy: [facility] #[id number] - [place], [place] - [address] [employer] [address] [employer] Delivery method: Pickup Recent Visits Date Type [...] authorizing provider and meeting all other requirements [facility] 2023-10-01 07:05:53 From: Ilsa Johnson To: Office of Jefferson Witt MD Sent: 09/30/2023 6:41 PM LOGISTICS OFFICER Subject: Medication Renewal Request Refills have been requested for the following medications: clonazePAM 1 mg tablet [Jefferson Witt] Preferred pharmacy: [facility] #[id number] - [place], [place] - [address] AT [employer] [address] [employer] Delivery method: Pickup Recent Visits Date Type [...] authorizing provider and meeting all other requirements [facility] 2023-09-25 08:44:44 Alexandrea with [facility] notified per Dr. Witt he does not follow IV vanc ordrs or manage them. She verbalized understanding. Nereida Pierce LVN 09/25/2023 8:45 AM [facility] 2023-09-24 14:16:51 No, I don't do that with vancomycin [facility] 2023-09-24 13:01:20 Please review and advise. STICS OFFICER Dianna Bell RN [facility] 2023-09-24 12:52:43 Ilsa Johnson is a 63 year old female and [facility] is calling stating pt is in their care and would like to know if Dr. Witt would be ok with following the course of care for the IV vank and required labs for the duration of after care medication. Please advise. STICS OFFICER Juany Bower [facility] 2023-09-16 13:54:27 Ilsa Johnson is a 63 year old female Patient is calling to request a refill on Rx lisinopriL 40 mg tablet. Please advise. [facility][id number] - [facility] [place] - [address] [facility] [employer] STICS OFFICER Leeanne Ventura [facility] 2023-09-15 08:20:32 From: Ilsa Johnson To: Office of Jefferson Witt MD Sent: 09/14/2023 4:46 PM LOGISTICS OFFICER Subject: Medication Renewal Request Refills have been requested for the following medications: SPIRONOLACTONE 25 mg tablet [Jefferson Witt] Preferred pharmacy: [facility] #[id number] - [place], [place] - [address] AT [facility] & [facility] Delivery method: Pickup Outpatient Medication Detail Disp Refills Start End JOANNE SPIRONOLACTONE 25 mg tablet 180 tablet 0 04/13/2023 -- No Sig: TAKE 1 TABLET BY MOUTH IN THE MORNING AND IN THE EVENING Sent to pharmacy as: spironolactone 25 mg tablet (ALDACTONE) Class: eRX Order: [id number] Date/Time Signed: 04/13/2023 08:49 E-Prescribing Status: Receipt [...] authorizing provider and meeting all other requirements STICS OFFICER [facility] 2023-09-11 16:36:11 Patient notified of all and verbalized understanding. No further needs voiced at this time. STICS OFFICER Melanie Stanley LVN [facility] 2023-09-11 13:29:16 Ilsa Johnson is a 63 year old female Pt returning phone call from clinic. Pt is wanting to know how much iron she needs to be taking, she increased her dosage to 65 mg. Please advise. [phone] (home) ON John [facility] 2023-09-11 09:18:42 Last Refilled: amLODIPine 10 mg [id number]--NoSig: Take 1 tablet by mouth in the morning.Sent to pharmacy as: amLODIPine 10 mg tablet ([facility])Class: eRXRoute: OralOrder: [id number]/Time Signed: 03/26/2023 13:04E-Prescribing Status: Receipt confirmed by [...] authorizing provider and meeting all other requirements STICS OFFICER Maggie Schreiber RN [facility] 2023-09-10 14:05:40 Continue with the otc iron [facility] 2023-09-10 13:55:38 Please review and advise JULIO 07/09/23 NOV 10/05/23 [facility] 2023-09-10 13:47:51 Ilsa Johnson is a 63 year old female that states her recent lab work showed that she had been low in iron. The pt states that she is taking 28mg of iron but still feels tired and run down. The pt is asking how much iron she should take. Please advise. STICS OFFICER Stephanie Crespo [facility] 2023-09-04 09:03:15 Tried to reach Ms. Johnson to discuss concerns and the benefits of jardiance, however was unable to reach her and left a voice mail at this time. Will follow up again. STICS OFFICER IM-ENDOCRINOLOGY,DIABETE S & METABOLISM [facility] 2023-09-02 08:32:48 From: Ilsa Johnson To: Office of Jefferson Witt MD Sent: 09/01/2023 7:05 PM LOGISTICS OFFICER Subject: Medication Renewal Request Refills have been requested for the following medications: clonazePAM 1 mg tablet [Jefferson Witt] Preferred pharmacy: [facility] #[id number] - [place], [place] - [address] AT [facility] [address] [employer] Delivery method: Pickup Recent Visits Date Type [...] authorizing provider and meeting all other requirements [facility] 2023-08-18 16:13:14 Images from the [...] Witt MD Last refill: 11/27/2022 Rx #: [id number]|1|0|1 General Refills Hqtywv1008/18/2023 04:12 PM Protocol Details Valid encounter within last 12 months To be filled at: [facility] #[id number] - [place], [place] - [address] [facility] [employer] [facility] [employer] Recent Visits Date Type Provider Dept 07/09/23 [...] authorizing provider and meeting all other requirements [facility] 2023-08-14 08:45:00 Images from the original note were not included. Venipuncture collection performed by clean technique on the right anticubitus. Total of 1 attempts were made. Slight pressure and a bandage/dressing were applied to the site(s). The patient experienced no complications. The following specimens were processed according to instructions and sent to [facility] laboratories per lab order on 08/14/2023 : LT BLUE SST 1 RED LAV 1 PPT DK GREEN (LiHep) DK GREEN (SodH) PRINCE DK BLUE (K2) DK BLUE (S) ACD Blood Culture NIPT/NTD STICS OFFICER [facility] 2023-08-10 14:06:30 Images from the [...] modifications. On July 17, 2023 Nevaeh Payton LR 07/17/23 8:59 AM Note Pt calling says she need to go over meds is having issues with empagliflozin (JARDIANCE) 10 mg Making her urinate often and says it not helping lowering her blood sugars just want to stay on metformin and glipizide only Routing to [place] if ok to stop jardiance and take glipizide and metformin ON Payton MA [facility] 2023-08-07 08:19:10 Images from the original note [...] Witt MD Last refill: 05/13/2023 Rx #: [id number]|0|1 Provider Review Required Hzgwas3808/07/2023 05:46 AM Protocol Details This refill cannot be delegated Valid encounter within last 12 months To be filled at: [facility] #[id number] - [place], [place] - [address] AT [employer] [facility] [employer] Recent Visits Date Type Provider Dept 07/09/23 [...] authorizing provider and meeting all other requirements [facility] 2023-08-05 10:02:47 Images from the original note were not included. Last Refilled: 07/07/23 Notes: [facility] #[id number] - [place], [place] - [address] [facility] [employer] Recent Visits Date Type Provider Dept 07/09/23 [...] by Nora Morrow MD Provider Review Required Hqzncs7508/05/2023 08:19 AM Protocol Details This refill cannot be delegated Valid encounter within last 12 months To be filled at: [facility] #[id number] - [place] - [address] AT [employer] [facility] Rebecca Francis MA [facility] [employer] 2023-08-05 08:16:59 Ilsa Johnson is a 63 year old female Patient requesting a refill of: Medication: clonazePAM Dose: 1 mg Route: oral Quantity: 120 tablets Pharmacy: [facility] #[id number] - [place] - [address] [place] [address] Last appt.: 07/01/23 Next appt.: 10/05/23 [facility] [employer] 2023-08-04 09:47:[address] orders if approved STICS OFFICER Gabi Kirkland MA [facility] 2023-08-04 08:36:08 Ilsa Johnson is a 63 year old female calling in requesting lab orders patient wants to check her hemoglobin as well as Iron.Please advise STICS OFFICER Nicola Craig [facility] 2023-07-30 14:50:19 JULIO:07/10/2023 NOV:01/01/2024 Last note; Plan --take Tresiba 48 units once daily --Reduce metformin to 850 mg once daily --Continue Jardiance 10 mg daily. --Stop glipizide. Return in about 4 months (around 11/09/2023). __ Refilled Gabapentin STICS OFFICER Sarah Cantrell RN [facility] 2023-07-17 08:57:47 Pt calling says she need to go over meds is having issues with empagliflozin (JARDIANCE) 10 mg Making her urinate often and says it not helping lowering her blood sugars just want to stay on metformin and glipizide only STICS OFFICER Nevaeh Payton [facility] 2023-04-20 14:19:42 Formatting of this n ote might be different from the original. Order placed via parachute. Will update as carrie permits. [facility] 2023-04-20 06:25:22 Formatting of this n ote might be different from the original. OK T [facility] 2023-04-17 08:09:19 Formatting of this n ote might be different from the original. Please review and advise T [facility] 2023-04-15 13:14:13 Formatting of this n ote might be different from the original. Patient is requesting an order for a bed rail. She is not sure if Medicare will pay for it. Rashida Heredianandez [facility] 2023-04-13 16:17:55 Formatting of this n ote might be different from the original. Medication sent in per and Anna with [facility] has been notified. She stated she will contact the patient to let her know. T [facility] 2023-04-13 15:35:56 Formatting of this n ote might be different from the original. Ok diflucan 150mg times 1 T [facility] 2023-04-13 14:46:45 Formatting of this n ote might be different from the original. Anna with [facility] is calling in requesting medication for current yeast infection due to recent ABX usage.Please advise T Nicola Craig [facility] 2023-04-08 07:59:50 Formatting of this n ote might be different from the original. Next Appt: With Family Medicine (Jefferson Witt MD) 04/08/2023 at 9:30 AM Will take care of this at her appt today per Dr. Witt T [facility] 2023-04-07 15:50:18 Formatting of this n ote might be different from the original. Pt says she need larger wheel chair the one she has is uncomfortable she uses [facility] Nevaeh Payton [facility] 2023-03-28 15:03:00 Formatting of this n ote might be different from the original. Regarding: [id number], 62y/f, BP last 2 nights over 200, today it is 155/70. seeking advice about ER? ----- Message from Daphnie Barragan sent at 03/28/2023 3:03 PM CDT ----- Ilsa Johnson is a 62 year old female Alana Freire RN [facility] 2023-03-28 15:03:00 Formatting of this n ote [...] taking BP medications Protocols used: High Blood [id number] Patient calling concerned of elevated blood pressure [...] agrees with this plan. Alana Freire RN [facility] Access Center Triage Nurse [facility] 2023-03-27 15:08:46 Formatting of this n ote might be different from the original. [facility] cert for 03/15/23-05/13/23 approved and ready for provider signature in suture sign. Please review and sign if appropriate. Dianna Bell RN [facility] 2023-03-26 07:46:02 Formatting of this n ote [...] and agreed with recommendations. Elizabeth Sotelo RN [facility] 2023-03-26 07:41:47 Formatting of this n ote might be different from the original. Patient is calling stating her blood pressure is high, she does not know what it is this morning but last night it was 185/89. She states she is under a lot of stress and being treated for an infection on her leg. Nurse notified. Rashida Marrero [facility] 2023-02-25 09:22:14 Formatting of this n ote is different from the original. JULIO 05/23/22 NOV 07/10/23 Per encounter on 09/12/21 regarding Glipizide: Please call the patient and inform her of the below medication I have added to her regimen. glipiZIDE XL 5 mg 24 hr tablet 90 tablet 1 09/13/2021 -- Sig: Take 1 tablet by mouth daily with breakfast. Sent to Pharmacy [facility] [employer] 2023-02-24 17:18:05 Formatting of this n ote might be different from the original. Images from the original note were not included. [facility] [employer] 2023-02-24 17:16:49 Formatting of this n ote might be different from the original. Images from the original note were not included. [facility] [employer] 2023-02-20 15:35:26 Formatting of this n ote is different from the original. Images from the original note were not included. METFORMIN 850MG TABLETS metFORMIN 850 mg tablet 270 tablet 0 12/06/2022 No Sig: TAKE 1 TABLET BY MOUTH THREE TIMES DAILY Sent to pharmacy as: metFORMIN 850 mg tablet (GLUCOPHAGE) Class: eRX Order: [id number] Date/Time Signed: 12/06/2022 16:36 E-Prescribing Status: Receipt [...] azelastine HCl 137 mcg (0.1 %) 1 Plummer Nasal BID, Use in each nostril as [...] MOUTH THREE TIMES DAILY Nov:07/10/2023 Refill sent [facility] 2023-02-20 07:33:47 Formatting of this n ote is different from the original. Refill cannot be delegated. Please review and fill if appropriate. Outpatient Medication Detail Disp Refills Start End JOANNE TIZANIDINE 4 mg tablet 270 tablet 0 12/08/2022 No Sig: TAKE 1 TABLET BY MOUTH EVERY 8 HOURS NEEDED Sent to pharmacy as: tiZANidine 4 mg tablet (ZANAFLEX) Class: eRX Order: [id number] Date/Time Signed: 12/08/2022 06:29 E-Prescribing Status: Receipt confirmed by pharmacy (12/08/2022 6:29 AM CDT) Recent Visits Date Type Provider Dept 02/11/23 Office Visit Jefferson Witt MD [facility] 12/22/22 Office Visit Daniel Castellon FNP [facility] 11/27/22 Office Visit Jefferson Witt MD [facility] 11/12/22 Office Visit Jefferson Witt MD [...] Appointments Date Type Provider Dept 05/14/23 Appointment Jefferosn Witt MD [facility] Showing future appointments within next 150 days with a meds authorizing provider and meeting all other requirements T [facility]
[2025-03-08 15:57] LABS: Absolute Lymphocytes (CBC) 2.0 K/uL (0.7-4.9); Hematocrit 32.6 % (36.0-45.0); Hemoglobin 10.7 g/dL (12.0-15.0); MCH 26.3 pg (27.0-35.0); MCHC 32.9 g/dL (32.0-36.0); MCV 79.9 fL (80-100); MPV 9.6 fL (7.6-11.3); Nucleated RBC Absolute Count 0.0 (0-0); Nucleated Red Blood Cells % 0.2 % (0-0); RBC Red Blood Cell Count 4.08 M/uL (3.86-4.86); White Blood Count 6.70 thou/uL (4.3-10.9)
[2025-03-08 16:06] LABS: PT Prothrombin Time 12.4 SECONDS (10-13.0); Protime INR 1.1
[2025-03-08 16:17] LABS: ALT/SGPT 41 U/L (13-56); AST/SGOT 32 U/L (15-37); Albumin 3.5 g/dL (3.4-5.0); Albumin/Globulin Ratio 0.9 (1.1-1.8); Alkaline Phosphatase 25 U/L (45-117); Anion Gap 10.9 mEq/L (5.0-15.0); BUN Blood Urea Nitrogen 55 mg/dL (7-18); Globulin 3.9 g/dL (2.3-3.5); Glucose Level 164 mg/dL (74-106); Lipase 57 U/L (13-75); Magnesium 2.5 mg/dL (1.6-2.4); NT PRO-BNP 172 pg/mL (<125); Potassium 4.9 mEq/L (3.5-5.1); Troponin High Sensitivity 8.1 pg/mL (<58.9)
[2025-03-08 16:24] LABS: Bilirubin Indirect, Calculated 0.1 mg/dL (0.2-0.8)
--- NOTE | 2025-03-08 17:33 | RAD REPORT ---
EXAMINATION: Abdomen Pelvis W Contrast CLINICAL INDICATION: Female, 64 years old.ABD PAIN TECHNIQUE: CT abdomen and pelvis was performed, after the administration of IV contrast, as per [facility] protocol. Axial, sagittal and coronal reconstructions were obtained. One or more of the following dose reduction techniques were used: Automated exposure control, adjustment of the mA and/o r kV according to patient size, and/or iterative reconstruction. Unless otherwise specified, incidental findings do not require dedicated imaging follow-up. [id number]. COMPARISON: 02/12/2024 FINDINGS: LOWER CHEST: Linear scarring at the left lung base.No significant pericardial effusion. Moderate circ umferential thickening of the distal esophagus which could reflect esophagitis. Endoscopy could better evaluate. UPPER GI: No significant abnormality. LIVER: Hepatomegaly with steatosis. GALLBLADDER/BILE DUCTS: Cholecystectomy.? PANCREAS: No mass, ductal dilation, or avery-pancreatic fluid. SPLEEN: Unremarkable. ADRENALS: No adrenal masses. KIDNEYS AND URETERS: No hydronephrosis.Low density and/or too small to characterize renal lesions whi ch are statistically benign.Nonobstructing renal calculi.5 mm stone is present in the right renal pelvis. No ureteral calculi. ABDOMINAL AORTA AND OTHER VESSELS: Normal caliber aorta and IVC. PERITONEUM: No abnormal free fluid. No free air. LYMPH NODES: No pathologic lymphadenopathy. ABDOMINAL WALL: Unremarkable SMALL BOWEL/COLON: Small bowel has normal course and caliber. No colonic wall thickening or pericolon ic inflammatory changes.Appendix absent. URINARY BLADDER: Underdistended but grossly unremarkable. REPRODUCTIVE ORGANS: Uterus surgically absent. No adnexal abnormality. MUSCULOSKELETAL: Multilevel degenerative changes in the spine. No acute fracture. Grade 1 anterolisth esis of L3 on L4 and L4-L5. Retrolisthesis of L5 on S1. Remote left-sided rib fractures. ADDITIONAL FINDINGS: None. IMPRESSION: No acute findings within the abdomen or pelvis. Nonobstructive bilateral nephrolithiasis. 5 mm nonobstructing stone is present in the right renal pel vis. Moderately thickened distal esophagus likely reflect esophagitis.
[2025-03-08 17:37] LABS: Urine Microscopic Reflex YN NO UMIC
--- NOTE | 2025-03-08 17:41 | EDPHYS ---
Physician Documentation [facility] Name: Jose Edmond Age: 64 yrs Sex: Female : 1960 Arrival Date: 03/08/2025 Time: 15:07 Bed 8 Private MD: ED Physician Elan Miguel HPI: 03/08 16:33 This 64 yrs old Female presents to ER via Wheelchair with complaints of Abdominal Pain. sp3 16:33 64-year-old female with history of COPD, diabetes, hypertension, status post sp3 cholecystectomy, status post appendectomy now presents to the ED with right upper quadrant abdominal pain for the last 2 days "burning in nature" without other symptoms. Patient denies fever, vomiting, diarrhea, neck pain, chest pain, shortness breath, back pain, syncope, near syncope, bleeding, melena, known sick contacts, travel history, or any other signs or symptoms on ROS at this time.. Historical: - Allergies: 15:24 Morphine; me1 15:24 Sulfa (Sulfonamide Antibiotics); me1 15:24 TETRACYCLINES; me1 - PMHx: 15:24 Chronic obstructive lung disease; diabetes mellitus; Hypertensive disorder; me1 - PSHx: 15:24 back; section; Cholecystectomy; foot sx; hernia; hysterectomy; Appendectomy; me1 - Immunization history:: Adult Immunizations up to date. - Infectious Disease History:: Denies. - Social history:: Smoking status: Reported history of juuling and/or vaping. ROS: 16:33 Constitutional: Negative for fever, chills, and weight loss, Eyes: Negative for injury, sp3 pain, redness, and discharge, ENT: Negative for injury, pain, and discharge, Neck: Negative for injury, pain, and swelling, Cardiovascular: Negative for chest pain, palpitations, and edema, Respiratory: Negative for shortness of breath, cough, wheezing, and pleuritic chest pain, Back: Negative for injury and pain, MS/Extremity: Negative for injury and deformity, Skin: Negative for injury, rash, and discoloration, Neuro: Negative for headache, weakness, numbness, tingling, and seizure, Psych: Negative for depression, anxiety, suicide ideation, homicidal ideation, and hallucinations, Allergy/Immunology: Negative for hives, rash, and allergies, Endocrine: Negative for neck swelling, polydipsia, polyuria, polyphagia, and marked weight changes, 16:33 All other systems are negative, Exam: 16:34 Constitutional: This is a well developed, well nourished patient who is awake, alert, sp3 and in no acute distress. Head/Face: Normocephalic, atraumatic. Eyes: Pupils equal round and reactive to light, extra-ocular motions intact. Lids and lashes normal. Conjunctiva and sclera are non-icteric and not injected. Cornea within normal limits. Periorbital areas with no swelling, redness, or edema. Neck: Trachea midline, no thyromegaly or masses palpated, and no cervical lymphadenopathy. Supple, full range of motion without nuchal rigidity, or vertebral point tenderness. No Meningismus. Chest/axilla: Normal chest wall appearance and motion. Nontender with no deformity. No lesions are appreciated. Cardiovascular: Regular rate and rhythm with a normal S1 and S2. No gallops, murmurs, or rubs. Normal PMI, no JVD. No pulse deficits. Respiratory: Lungs have equal breath sounds bilaterally, clear to auscultation and percussion. No rales, rhonchi or wheezes noted. No increased work of breathing, no retractions or nasal flaring. Back: No spinal tenderness. No costovertebral tenderness. Full range of motion. Skin: Warm, dry with normal turgor. Normal color with no rashes, no lesions, and no evidence of cellulitis. MS/ Extremity: Pulses equal, no cyanosis. Neurovascular intact. Full, normal range of motion. Neuro: Awake and alert, GCS 15, oriented to person, place, time, and situation. Cranial nerves II-XII grossly intact. Motor strength 5/5 in all extremities. Sensory grossly intact. Cerebellar exam normal. Normal gait. 16:34 Abdomen/GI: Mild right upper quadrant abdominal pain to palpation without peritoneal signs, rebound or guarding. Nonsurgical abdomen. Vital signs are normal., 16:35 ECG was reviewed by the Attending Physician. EKG demonstrates normal sinus rhythm at 80 sp3 bpm with normal intervals, normal QRS, normal axis, normal axis ST segments without evidence of acute ischemia. Vital Signs: 15:21 BP 153 / 72; Pulse 99; Resp 18; Temp 98.5; Pulse Ox 93% on R/A; Weight 110.68 kg; me1 Height 5 ft. 5 in. ; Pain 5/10; 16:27 BP 110 / 44; Pulse 75; Resp 18; Pulse Ox 93% on R/A; ph 17:30 BP 112 / 52; Pulse 71; Resp 18; Pulse Ox 97% on R/A; ph 18:30 BP 108 / 56; Pulse 75; Resp 18; Temp 97.3; Pulse Ox 99% on R/A; ph 15:21 Body Mass Index 40.60 (110.68 kg, 165.1 cm) me1 15:21 Pain Scale: Adult me1 MDM: 15:19 Medical Screening Exam initiated sp3 16:34 Data reviewed: vital signs, nurses notes, lab test result(s), EKG, radiologic studies. 3 ED course: 64-year-old female with COPD, hypertension now presents with right upper quadrant abdominal pain. Differential diagnosis includes biliary pathology, gastritis, colitis, adhesions, hernia, functional abdominal pain, constipation, musculoskeletal, , among others. Workup will include CT scan of the abdomen pelvis with IV contrast, UA, general labs, ACS workup including troponin and EKG and general supportive care with medications if indicated. Currently patient declines any pain medications.. 17:40 ED course: No significant findings on workup. Will safely discharge [facility] this [facility].. 03/08 15:38 Order name: Basic Metabolic Panel; Complete Time: 16:31 [facility] 03/08 15:38 Order name: CBC with Diff; Complete Time: 16:31 [facility] 03/08 15:38 Order name: LFT's; Complete Time: 16:31 [facility] 03/08 15:38 Order name: Magnesium; Complete Time: 16:31 [facility] 03/08 15:38 Order name: NT PRO-BNP; Complete Time: 16:31 [facility] 03/08 15:38 Order name: PT-INR; Complete Time: 16:31 [facility] 03/08 15:38 Order name: Troponin HS; Complete Time: 16:31 [facility] 03/08 15:38 Order name: Lipase; Complete Time: 16:31 [facility] 03/08 16:35 Order name: UA Rfx Hal Cult if indicated; Complete Time: 17:38 [facility] 03/08 15:38 Order name: CT Abd/Pelvis - IV Contrast Only; Complete Time: 17:37 [facility] 03/08 15:38 Order name: EKG - Nurse/Tech; Complete Time: 15:57 sp3 03/08 15:38 Order name: IV Saline Lock; Complete Time: 15:58 sp3 03/08 15:38 Order name: Labs collected and sent; Complete Time: 16:08 sp3 Administered Medications: No medications were administered Disposition Summary: 03/08/25 17:40 Discharge Ordered Notes: Location: Home sp3 Condition: Stable sp3 Diagnosis - Abdominal pain, Generalized sp3 Followup: sp3 - With: Private Physician - When: Upon discharge from the Emergency Department - Reason: Continuance of care Discharge Instructions: - Discharge Summary Sheet sp3 - Abdominal Pain, Adult sp3 Forms: - Medication Reconciliation Form sp3 - Antibiotic Education sp3 - Prescription Opioid Use sp3 - Patient Portal Instructions sp3 - Leadership Thank You Letter sp3 Signatures: Dispatcher [employer] Elan Ramirez MD MD sp3 Suma Hall RN RN me1 Corrections: (The following items were deleted from the chart) 15:38 15:38 BASIC METABOLIC PANEL+C.LAB.BRZ ordered. EDMS EDMS 15:38 15:38 CBC+H.LAB.BRZ ordered. EDMS EDMS 15:38 15:38 HEPATIC FUNCTION+C.LAB.BRZ ordered. EDMS EDMS 15:38 15:38 MAGNESIUM+C.LAB.BRZ ordered. EDMS EDMS 15:38 15:38 PROBNP+C.LAB.BRZ ordered. EDMS EDMS 15:38 15:38 PROTIME (+INR)+COAG.LAB.BRZ ordered. EDMS EDMS 15:38 15:38 Troponin High Sensitivity+C.LAB.BRZ ordered. EDMS EDMS 15:38 15:38 LIPASE+C.LAB.BRZ ordered. EDMS EDMS 15:39 15:39 Abdomen Pelvis W Con+CT.RAD.BRZ ordered. EDMS EDMS
--- NOTE | 2025-03-08 17:41 | ER ---
Nurse's Notes [facility] Name: Jose Edmond Age: 64 yrs Sex: Female : 1960 Arrival Date: 03/08/2025 Time: 15:07 Bed 8 Private MD: Diagnosis: Abdominal pain, Generalized Presentation: 03/08 15:21 Chief complaint: Patient states: RUQ pain that started yesterday, Pain 5/10, me1 "sharp/burning". Denies fever. Denies n/v/d. Coronavirus screen: Vaccine status: Patient reports receiving the 2nd dose of the covid vaccine. Ebola Screen: No symptoms or risks identified at this time. Initial Sepsis Screen: Does the patient meet any 2 criteria? HR > 90 bpm. Does the patient have a suspected source of infection? No. Patient's initial sepsis screen is negative. Risk Assessment: Do you want to hurt yourself or someone else? Patient reports no desire to harm self or others. Onset of symptoms was March 07, 2025. 15:21 Method Of Arrival: Wheelchair me1 15:21 Acuity: MAYRA 3 me1 Historical: - Allergies: 15:24 Morphine; me1 15:24 Sulfa (Sulfonamide Antibiotics); me1 15:24 TETRACYCLINES; me1 - PMHx: 15:24 Chronic obstructive lung disease; diabetes mellitus; Hypertensive disorder; me1 - PSHx: 15:24 back; section; Cholecystectomy; foot sx; hernia; hysterectomy; Appendectomy; me1 - Immunization history:: Adult Immunizations up to date. - Infectious Disease History:: Denies. - Social history:: Smoking status: Reported history of juuling and/or vaping. Screenin:28 [facility] ED Fall Risk Assessment (Adult) History of falling in the last 3 months, ph including since admission No falls in past 3 months (0 pts) Confusion or Disorientation No (0 pts) Intoxicated or Sedated No (0 pts) Impaired Gait Yes (1 pt) Mobility Assist Device Used Yes (1 pt) Altered Elimination No (0 pt) Score/Fall Risk Level 0 - 2 = Low Risk Oriented to surroundings, Maintained a safe environment, Hourly rounding (assess needs \\T\\ fall precautionary measures) done, Used ambulatory aids as needed (educated on \\T\\ assisted with). Abuse screen: Denies threats or abuse. Denies injuries from another. Nutritional screening: No deficits noted. Tuberculosis screening: No symptoms or risk factors identified. Assessment: 16:00 General: Appears in no apparent distress. Behavior is calm, cooperative. Pain: ph Complains of pain in right upper quadrant. Neuro: Level of Consciousness is awake, alert, obeys commands, Oriented to person, place, time, situation. Cardiovascular: Capillary refill < 3 seconds in bilateral fingers Patient's skin is warm and dry. Respiratory: Airway is patent Respiratory effort is even, unlabored. GI: Abdomen is round Bowel sounds present X 4 quads. Abd is soft and non tender X 4 quads. Derm: Skin is pink, warm \\T\\ dry. Vital Signs: 15:21 BP 153 / 72; Pulse 99; Resp 18; Temp 98.5; Pulse Ox 93% on R/A; Weight 110.68 kg; me1 Height 5 ft. 5 in. ; Pain 5/10; 16:27 BP 110 / 44; Pulse 75; Resp 18; Pulse Ox 93% on R/A; ph 17:30 BP 112 / 52; Pulse 71; Resp 18; Pulse Ox 97% on R/A; ph 18:30 BP 108 / 56; Pulse 75; Resp 18; Temp 97.3; Pulse Ox 99% on R/A; ph 15:21 Body Mass Index 40.60 (110.68 kg, 165.1 cm) me1 15:21 Pain Scale: Adult al1 ED Course: 15:11 Patient arrived in ED. al6 15:12 Elan Miguel MD is Attending Physician. sp3 15:24 Triage completed. me1 15:24 Arm band placed on Patient placed in an exam room. me1 15:58 EKG done, by model technician. ts3 16:28 Patient has correct armband on for positive identification. Bed in low position. Call ph light in reach. Side rails up X 1. Pulse ox on. NIBP on. Door closed. Noise minimized. Warm blanket given. 17:16 CT Abd/Pelvis - IV Contrast Only In Process Unspecified. EDMS 17:32 UA Rfx Hal Cult if indicated Sent. hb 18:33 Kelsey Campos, RN is Primary Nurse. ph 18:34 No provider procedures requiring assistance completed. IV discontinued, intact, ph bleeding controlled, No redness/swelling at site. Pressure dressing applied. Administered Medications: No medications were administered Medication: 16:28 VIS not applicable for this client. ph Outcome: 17:40 Discharge ordered by sp3 18:35 Discharged to home via wheelchair, with significant other, ph 18:35 Condition: good 18:35 Discharge instructions given to patient, significant other, Instructed on discharge instructions, follow up and referral plans. Demonstrated understanding of instructions, follow-up care, 18:35 Patient left the ED. ph Signatures: Dispatcher [employer] EDKelsey Richardson RN RN Savana Louise RN RN Elan Miguel MD MD sp3 Suma Hall RN RN al1 Zelda Blevins [facility] Chuyita Courtney 3
[2025-03-08 18:52] VITALS: BP 108/56; TEMP 97.3; O2SAT 99
== END 2025-03-08 18:35 | disposition home or self-care (01) ==
LOC: ER 15:07
DX: R10.84 Generalized abdominal pain (principal)
CPT/HCPCS: 93005; 85025; 80048; 36415; 83735; 85610; 80076; 81003; 84484; 83690; 83880; 74177; 99284; Q9967

== ENCOUNTER 2025-03-26 16:11 | Emergency (ER) | payer OTHER ==
[2025-03-26] MEDS ORDERED: MAGNES/ALUMIN/SIMET 30ML UCUP ONE (16:34)
[2025-03-26] MEDS ORDERED: FAMOTIDINE 20 MG/2 ML VIAL IV ONE (16:34)
[2025-03-26] MEDS ORDERED: LIDOCAINE VISCOUS 2% 10ML ORAL SOLN ONE (16:35)
--- OUTSIDE RECORDS SUMMARY | 2025-03-26 16:39 | XMS REPORT | Continuity of Care Document ---
Author Name Unknown Address [address] [facility] [place] [address] [facility] Address [address] [facility] [place] [address] Care Team Providers Care Newcomer Hostess Name Role Phone Jefferson Witt MD Primary Care Physician [phone] Jefferson Witt Attending Clinician Unavailable BISI CARDOSO Attending Clinician Unavail able GIOVANY ANTOINE Attending Clinician UnavailJEFFERSON Andujar Attending Clinician Unavailable Mira Jacques PA-C Attending Clinician [phone] MIRA JACQUES Attending Clinician Unavailable Robbie Coronado MD Attending Clinician +[phone] Doctor Unassigned, Mcallister Attending Clinician U Paige Shirley LVN Attending Clinician Unavailable Bisi Caceres PA-C Attending Clinician [phone] Unknown, Attending Attending Clinician Unavailab BISI Silva Attending Clinician Unavailable ROBBIE CORONADO Attending Clinician Unavailable CLAIRE ELAM Attending Clinician Unavailable Giovany Antoine MD Attending Clinician [phone] Jefferson Witt MD Attending Clinician [phone] DANIEL CASTELLON Attending Clinician Unavailable OBI-NARA, MONTSE Attending Clinician Unavailab guy CELESTENARA, MONTSE Attending Clinician Unavailab Priti Olivia RN Attending Clinician Unavailable Lab, Ang - Db Attending Clinician Unavailable Doctor Unassigned, Mcallister Attending Clinician U ONRA Godwin Attending Clinician Christopher Morrow MD, Nora Garvin Attending Clinician + ROSETTE CONTRERAS Attending Clinician Unavailable Venkatesh OCONNOR, Ana Attending Clinician [phone] Unknown, Attending Attending Clinician Unavailab ANA Dinh Attending Clinician Unavailable CARLA VELASCO Attending Clinician Unavailable CARLA VELASCO Attending Clinician Unavailable JOSSE LEYVA Attending Clinician Unavailable Po, [facility] Lab Main Attending Clinician Unavailjayson Freire RN, Alana Prabhakar Attending Clinician Kimberly vailable [facility] [place] Attending Clinician Unavaila Richard Magana Attending Clinician [phone] RICHARD VIDAL Attending Clinician Unavailable NOEMI WAITE Attending Clinician Unavailable Daniel Silva Attending Clinician +[phone] Claudia Recinos Attending Clinician [phone] Marylou Borrego Attending Clinician UnavailCLAUDIA Shehperd Attending Clinician Unavailable Rosette Markham Attending Clinician + [phone] ION HOBBS Attending Clinician Kimberly vailable RACHELL CHENG Attending Clinician Unavaila RACHELL Boss Attending Clinician Unavaila eri Weems RN, lOeg Leach Attending Clinician UnavailJESUS Smith Attending Clinician Unavailable Jesus Spain MD Attending Clinician [phone] Rachell Cheng MD Attending Clinician + [phone] [facility] Sleep Lab Attending Clinician Unavaila ble 2, Adc Lab Attending Clinician Unavailable DAYLIN MOJICA Attending Clinician Unavailable Daylin Mojica NP Attending Clinician [phone] [facility] Attending Clinicia n Unavailable ARMINDA VEGA Attending Clinician Unavailable Noemi Christian S Attending Clinician + DILAN LOVE Attending Clinician Unavailjayson Love MD, Dialn Ballesteros Attending Clinician + [phone] MARYLOU GAMINO Attending Clinician Unavailable PRAVEEN SAGE Attending Clinician Unavailable Praveen Shipman Attending Clinician + [phone] True OCONNOR, Brian Rivera Attending Clinician [phone] BRIAN VENTURA Attending Clinician Unavaila ble Only, Adc Test Attending Clinician Unavailable Mike OCONNOR, Maryam Attending Clinician + [phone] MARYAM BRUCE Attending Clinician Unavailjayson mike Nurse, [facility] Pob Immunization Attending Clinician Unavailable Severo Lara DO Attending Clinician [phone] SEVERO LARA Attending Clinician Unavail able Linda CHONG, Elizabeth Ballesteros Attending Clinician Unavail able CHERYLE SILVA Attending Clinician Unavailable Trever OCONNOR, Cheryle Attending Clinician [phone] Derek START UP SPECIALISTDoron Attending Clinician +[phone] DORON WEINSTEIN Attending Clinician Unavailjayson Leyva START UP SPECIALIST, Josse Attending Clinician [phone] Provider, [facility] Attending Clinician Un available Alberto GARCIAPRomi Attending Clinician + [phone] Lia CHONG, Araceli Black Attending Clinician Unavailab JAYASHREE Schmidt Attending Clinician Unavailab Jayashree Schmidt DO Attending Clinician [phone] Attending Clinician Unavailable Bisi Cardoso MD Attending Clinician [phone] Guy Mcclellan RN, Mira Attending Clinician Unavailable , Adc Echo Room 1 - Attending Clinician Christopher Coronado MD, Robbie Attending Clinician [phone] Visit, Adc Nurse Attending Clinician Unavailable Gramm START UP SPECIALIST, Sandy A Attending Clinician [phone] GRAMM, SANDY A Attending Clinician Unavailable Lab, [facility] Fam Pob I Attending Clinician Unavailab guy [facility] Aleks Attending Clinician [phone] Pob1, Acute [facility] Attending Clinician Keila Hill MD Attending Clinician [phone] KEILA DELCID Attending Clinician Unavailable Kim CHONG, Ciara Attending Clinician Unavailable BISI CARDOSO Admitting Clinician Unavail able Fer, Suma Rashmi Admitting Clinician Unavaila JESUS Arita Admitting Clinician Unavailable JEFFERSON WITT Admitting Clinician Unavailable BRIAN VENTURA.HCam Admitting Clinician Unavaila CHERYLE Zhao Admitting Clinician Unavailable Trever OCONNOR, Cheryle Admitting Clinician [phone] Bisi Cardoso MD Admitting Clinician KEILA DELCID Admitting Clinician Unavailable Payers Payer Name Policy Type Policy Number Effective Date Expirati on Date Source [employer] MEDICARE [id number] 2019 00:00:00 [facility] [id number] 2023 00:00:00 MEDICARE PART A \\T\\ B [id number] 2021 00:00:00 2021 00:00:00 [facility] [id number] 2021 00:00:00 2021 00:00:00 Problems Condition Name Condition Details Condition Category Status Onset Date Resolution Date Last Treatment Date Treating Clinician Comments Source Preop cardiovasc ular exam Preop cardiovasc ular exam Disease Active 2023-08 00:00: 00 [facility] Iron deficiency anemia, unspecifie d iron deficiency anemia type Iron deficiency anemia, unspecifie d iron deficiency anemia type Disease Active 11-08 00:00: 00 [facility] Yeast infection of the skin Yeast infection of the skin Disease Active 12-22 00:00: 00 [facility] VERNON (obstructi ve sleep apnea) VERNON (obstructi ve sleep apnea) Disease Active 2021-08 00:00: 00 [facility] Chest pain Chest pain Disease Active 2020-08 0 00:00: 00 [facility] Morbid obesity Morbid obesity Disease Active 2020-08 0 00:00: 00 [facility] Chronic atrial fibrillati on Chronic atrial fibrillati on Disease Active 2020-08 0 00:00: 00 [facility] ICD (implantab le cardiovert er-defibri llator) in place ICD (implantab le cardiovert er-defibri llator) in place Disease Active 2020-08 0 00:00: 00 [facility] Abnormal serum level of lipase Abnormal serum level of lipase Disease Active 2020-08 0 00:00: 00 [facility] Leg edema Leg edema Disease Active 2020-08 00:00: 00 [facility] Calculus of gallbladde r without cholecysti tis without obstructio n Calculus of gallbladde r without cholecysti tis without obstructio n Disease Active 2019-08 00:00: 00 Overview: Formattin g of this note might be different from the original. Added automatic ally from request for surgery [id number] [facility] Neuropathy Neuropathy Disease Active 04-24 00:00: 00 [facility] Bronchitis Bronchitis Disease Active 11-22 00:00: 00 [facility] SOB (shortness of breath) SOB (shortness of breath) Disease Active 11-22 00:00: 00 [facility] Fever in adult Fever in adult Disease Active 11-22 00:00: 00 [facility] Tobacco dependence Tobacco dependence Disease Active 11-22 00:00: 00 [facility] Obesity Obesity Disease Active 04-23 00:00: 00 [facility] Low back pain Low back pain Disease Active 04-23 00:00: 00 [facility] Anxiety Anxiety Disease Active 01-24 00:00: 00 [facility] Type 2 diabetes mellitus Type 2 diabetes mellitus Disease Active 01-13 00:00: 00 [facility] Hyperlipid emia with target LDL less than 100 Hyperlipid emia with target LDL less than 100 Disease Active 01-13 00:00: 00 [facility] Essential hypertensi on Essential hypertensi on Disease Active 01-13 00:00: 00 [facility] Right knee pain Right knee pain Disease Active 12-31 00:00: 00 [facility] Right knee pain Right knee pain Disease Active 12-31 00:00: 00 [facility] Allergies, Adverse Reactions, Alerts Allergy Name Allergy Type Status Severity Reaction(s) Onset Date Inactive Date Treating Clinician Comments Source MORPHINE DRUG INGREDI Active Hallucinates 2023-08 00:00: 00 [facility] Morphine Propensi ty to adverse reaction s Active Hallucinatio ns 2023-08 00:00: 00 [facility] Glipizid e Propensi ty to adverse reaction s Active Rash 12-26 00:00: 00 Rash on head, back [facility] GLIPIZID E DRUG INGREDI Active Rash 12-26 00:00: 00 [facility] Clindamy kaylan Propensi ty to adverse reaction s Active Nausea and/or Vomiting 2017-08 00:00: 00 [facility] CLINDAMY KAYLAN DRUG INGREDI Active N/V 2017-08 00:00: 00 [facility] SULFAMET HOXAZOLE -TRIMETH OPRIM DRUG Active N/V 2016-08 00:00: 00 [facility] Sulfamet hoxazole -Trimeth oprim Drug Allergy Active Nausea and/or Vomiting 2016-08 00:00: 00 Other reaction( s): vomiting [facility] Sulfa (Sulfona mide Antibiot ics) Propensi ty to adverse reaction s Active Rash 02-12 00:00: 00 [facility] Tetracyc lines Propensi ty to adverse reaction s Active Rash 02-12 00:00: 00 [facility] SULFA (SULFONA MIDE ANTIBIOT ICS) Drug Class Active Rash 02-12 00:00: 00 [facility] TETRACYC LINES Drug Class Active Rash 02-12 00:00: 00 [facility] Tetracyc lines Propensi ty to adverse reaction s Active Rash 02-12 00:00: 00 [facility] Sulfa (Sulfona mide Antibiot ics) Drug Allergy Active Rash 02-12 00:00: 00 Other reaction( s): itching, vomitingO ther reaction( s): itching, vomiting [facility] Tetracyc lines Propensi ty to adverse reaction s Active Rash 02-12 00:00: 00 [facility] Social History Social Habit Start Date Stop Date Quantity Comments Source History of tobacco use Cigarette Smoker [facility] ASSERTION Not [facility] Alcoholic beverage intake 2024-12-21 00:00:00 2024-12-21 00:00:00 0 /d [facility] Cigarettes smoked current (pack per day) - Reported 2023-12-25 00:00:00 2023-12-25 00:00:00 [facility] Cigarette pack-years 2023-12-25 00:00:00 2023-12-25 00:00:00 [facility] Tobacco use and exposure 2023-12-25 00:00:00 2023-12-25 00:00:00 User of smokeless tobacco [facility] History of Social function 2023-12-25 00:00:00 2023-12-25 00:00:00 [facility] Alcohol intake 2023-12-02 00:00:00 2023-12-02 00:00:00 0 /d [facility] Exposure to SARS-CoV-2 (event) 2022-12-12 00:00:00 2022-12-22 07:53:00 Not sure [facility] Sex assigned at 1960 00:00:00 1960 00:00:00 [facility] Smoking Status Start Date Stop Date Source Smokes tobacco daily 2023-12-25 00:00:00 [facility] Medications Ordered Medication Name Filled Medication Name Start Date Stop Date Current Medication? Ordering Clinician Indication Dosage Frequency Signature (SIG) Comments Components Source CARVEDILOL 6.25 mg tablet 11-09 00:00: 00 Yes [id number] TAKE 1 TABLET BY MOUTH IN THE MORNING AND IN THE EVENING WITH FOOD [facility] AMLODIPINE 10 mg tablet 11-09 00:00: 00 Yes [id number] 10mg TAKE 1 TABLET BY MOUTH IN THE MORNING [facility] blood sugar diagnostic (ONETOUCH VERIO TEST STRIPS) strip 10-27 00:00: 00 Yes Use to check blood sugar TID [facility] Blood-Gluco se Meter (ONETOUCH VERIO FLEX METER) [facility] 10-27 00:00: 00 Yes Use to check blood sugar TID [facility] lancets 33 gauge [facility] 10-27 00:00: 00 Yes Use to check blood sugar TID [facility] blood sugar diagnostic (ONETOUCH VERIO TEST STRIPS) strip 10-27 00:00: 00 Yes Use to check blood sugar TID [facility] lancets [facility] 10-27 00:00: 00 Yes Use to check blood sugar TID [facility] amLODIPine 10 mg tablet 10-20 00:00: 00 11-09 00:00 :00 No [id number] 10mg TAKE 1 TABLET BY MOUTH IN THE MORNING [facility] insulin degludec (TRESIBA FLEXTOUCH U-200) 200 unit/mL (3 mL) InPn 10-13 00:00: 00 Yes [id number] 54U inject 54 Units under the skin in the morning and 54 Units in the evening. [facility] metformin ER 500 mg 24 hr tablet 10-13 00:00: 00 Yes [id number] 1000mg Take 2 tablets by mouth in the morning and 2 tablets in the evening. Take with meals. [facility] amLODIPine 10 mg tablet 108 00:00: 00 Yes [id number] 10mg Take 1 tablet by mouth in the morning. MUST BE SEEN FOR FURTHER REFILLS [facility] methylPREDN ISolone (MEDROL, ADAMA,) 4 mg tablets 2023-08 00:00: 00 Yes [id number] Take by mouth SEE-INSTRU CTIONS. follow package directions [facility] FUROSEMIDE 80 mg tablet 2023-08 00:00: 00 Yes [id number] 80mg TAKE 1 TABLET BY MOUTH IN THE MORNING [facility] SPIRONOLACT ONE 25 mg tablet 2023-08 00:00: 00 Yes [id number] 25mg TAKE 1 TABLET BY MOUTH IN THE MORNING AND IN THE EVENING [facility] TRUE METRIX GLUCOSE TEST STRIP strip 2023-08 00:00: 00 10-27 00:00 :00 No [id number] USE DIRECTED TO CHECK BLOOD SUGAR FOUR TIMES DAILY [facility] aspirin 81 mg Cap 2023-08 09:31: 21 Yes 81mg Take 81 mg by mouth in the morning. [facility] fenofibrate 54 mg tablet 2023-08 0-16 00:00: 00 Yes 54mg Take 1 tablet by mouth in the morning and 1 tablet in the evening. [facility] carvediloL 6.25 mg tablet 2023-08 0-09 00:00: 00 11-09 00:00 :00 No [id number] TAKE 1 TABLET BY MOUTH IN THE MORNING AND IN THE EVENING WITH FOOD [facility] JARDIANCE 10 mg tablet 9-14 00:00: 00 Yes 10mg Take 1 tablet by mouth every morning. [facility] LISINOPRIL 40 mg tablet 9-11 00:00: 00 Yes [id number] 40mg TAKE 1 TABLET BY MOUTH IN THE MORNING [facility] cephALEXin 500 mg capsule 8-07 00:00: 00 03-17 04:59 :00 No [id number] 500mg Take 1 capsule by mouth 4 (four) times daily for 7 days. [facility] TIZANIDINE 4 mg tablet 7-15 00:00: 00 Yes [id number] TAKE 1 TABLET BY MOUTH EVERY 8 HOURS NEEDED [facility] Insulin [place], Disposable, (BD ULTRAFINE III MINI PEN) 31 gauge x 3/16" Ndle -15 00:00: 00 Yes [id number] USE FOUR TIMES DAILY DIRECTED [facility] AMLODIPINE 10 mg tablet 15 00:00: 00 08-10 00:00 :00 No [id number] 10mg TAKE 1 TABLET BY MOUTH IN THE MORNING [facility] clonazePAM 1 mg tablet 01-26 00:00: 00 Yes [id number] TAKE 1 TABLET BY MOUTH FOUR TIMES DAILY NEEDED FOR PANIC [facility] clonazePAM 0.5 mg tablet 12-29 00:00: 00 06-29 00:00 :00 No [id number] 1mg Take 2 tablets by mouth 3 (three) times daily as needed for Other (anxiety). [facility] insulin degludec (TRESIBA FLEXTOUCH U-200) 200 unit/mL (3 mL) InPn 12-24 00:00: 00 Yes [id number] 54U inject 54 Units under the skin in the morning and 54 Units in the evening. [facility] spironolact one 25 mg tablet 14 00:00: 00 07-12 00:00 :00 No [id number] 25mg Take 1 tablet by mouth every morning and evening. [facility] metformin ER 500 mg 24 hr tablet 13 00:00: 00 Yes [id number] 1000mg Take 2 tablets by mouth in the morning and 2 tablets in the evening. Take with meals. [facility] amoxicillin -clavulanat e (AUGMENTIN) 875-125 mg per tablet 12-01 00:00: 00 03-09 00:00 :00 No [id number] 1{tbl} Take 1 tablet by mouth in the morning and 1 tablet in the evening. [facility] clonazePAM 1 mg tablet 12-01 00:00: 00 01-25 00:00 :00 No [id number] TAKE 1 TABLET BY MOUTH FOUR TIMES DAILY NEEDED FOR PANIC [facility] clonazePAM 0.5 mg tablet - 00:00: 00 12-28 00:00 :00 No [id number] 1mg Take 2 tablets by mouth 3 (three) times daily as needed for Other (anxiety). [facility] TIZANIDINE 4 mg tablet 29 00:00: 00 02-14 00:00 :00 No [id number] TAKE 1 TABLET BY MOUTH EVERY 8 HOURS NEEDED [facility] carvediloL 6.25 mg tablet 16 00:00: 00 Yes [id number] TAKE 1 TABLET BY MOUTH IN THE MORNING AND IN THE EVENING. TAKE WITH FOOD. [facility] fluconazole (DIFLUCAN) 150 mg tablet 11-15 00:00: 00 11-16 04:59 :00 No [id number] 150mg Take 1 tablet by mouth once now for 1 dose. [facility] nystatin 100,000 unit/mL suspension 11-08 00:00: 00 Yes [id number] Take 5 mL by mouth 4 (four) times daily. [facility] clonazePAM 1 mg tablet 11-01 00:00: 00 11-30 00:00 :00 No [id number] TAKE 1 TABLET BY MOUTH FOUR TIMES DAILY NEEDED FOR PANIC [facility] nystatin 100,000 unit/mL suspension 19 00:00: 00 Yes [id number] 613149X Take 5 mL by mouth 4 (four) times daily. [facility] KCL 20 mEq tablet 3-14 00:00: 00 Yes [id number] 20meq Take 1 tablet by mouth in the morning and 1 tablet in the evening. [facility] lisinopriL 40 mg tablet 3-13 00:00: 00 04-13 00:00 :00 No [id number] 40mg Take 1 tablet by mouth in the morning. [facility] ALBUTEROL 90 mcg/actuati on inhaler 3-08 00:00: 00 Yes [id number] INHALE 2 PUFFS BY MOUTH EVERY 6 HOURS NEEDED FOR WHEEZING, SHORTNESS OF BREATH OR BRONCHOSPA SMS. [facility] lancets (TRUEPLUS LANCETS) 33 gauge Misc 3 00:00: 00 10-27 00:00 :00 No USE DIRECTED TWICE DAILY [facility] clonazePAM 1 mg tablet 00:00: 00 11-01 00:00 :00 No [id number] TAKE 1 TABLET BY MOUTH FOUR TIMES DAILY NEEDED FOR PANIC [facility] spironolact one 25 mg tablet 2 00:00: 00 12-14 00:00 :00 No [id number] 25mg Take 1 tablet by mouth every morning and evening. [facility] blood sugar diagnostic (TRUE METRIX GLUCOSE TEST STRIP) strip 09-11 00:00: 00 07-12 00:00 :00 No [id number] USE DIRECTED TO CHECK BLOOD SUGAR FOUR TIMES DAILY [facility] AMLODIPINE 10 mg tablet 09-11 00:00: 00 02-14 00:00 :00 No [id number] 10mg TAKE 1 TABLET BY MOUTH IN THE MORNING [facility] clonazePAM 1 mg tablet 09-02 00:00: 00 00:00 :00 No [id number] TAKE 1 TABLET BY MOUTH FOUR TIMES DAILY NEEDED FOR PANIC [facility] CHLORHEXIDI NE 0.12 % mouthwash 08-19 00:00: 00 Yes [id number] SWISH AND SPIT 15 ML BY MOUTH TWICE DAILY [facility] GLIPIZIDE XL 5 mg 24 hr tablet -08 00:00: 00 12-24 00:00 :00 No [id number] 5mg TAKE 1 TABLET BY MOUTH DAILY WITH BREAKFAST [facility] TIZANIDINE 4 mg tablet -08 00:00: 00 11-29 00:00 :00 No [id number] TAKE 1 TABLET BY MOUTH EVERY 8 HOURS NEEDED [facility] clonazePAM 1 mg tablet 1- 00:00: 00 09-02 00:00 :00 No [id number] TAKE 1 TABLET BY MOUTH FOUR TIMES DAILY NEEDED FOR PANIC [facility] gabapentin 300 mg capsule 2022-08 00:00: 00 Yes [id number] TAKE 1 CAPSULE BY MOUTH FOUR TIMES DAILY [facility] maalox/diph enhydrAMINE :lidocaine2 % viscous 1:1:1 Susp suspension 2022-08 00:00: 00 Yes [id number] 5mL Take 5 mL by mouth 3 (three) times daily as needed (gargle and spit). [facility] nystatin 100,000 unit/gram powder 2022-08 00:00: 00 Yes [id number] Apply to area(s) 2 (two) times daily. [facility] Insulin [place], Disposable, (BD ULTRAFINE III MINI PEN) 31 gauge x 3/16" Ndle 2022-08 00:00: 00 02-14 00:00 :00 No [id number] USE DIRECTED FOUR TIMES DAILY. Dx E11.9 [facility] insulin degludec (TRESIBA FLEXTOUCH U-200) 200 unit/mL (3 mL) InPn 2022-08 00:00: 00 12-24 00:00 :00 No [id number] ADMINISTER 48 UNITS UNDER THE SKIN THREE TIMES DAILY [facility] metFORMIN 850 mg tablet 2022-08 00:00: 00 12-13 00:00 :00 No [id number] 850mg Take 1 tablet by mouth daily with breakfast. [facility] empaglifloz in (JARDIANCE) 10 mg 2022-08 00:00: 00 11-15 00:00 :00 No [id number] 10mg Take 1 tablet by mouth in the morning. [facility] neomycin-po lymyxin-gra micidin ophthalmic drops 2022-08 00:00: 00 Yes [id number] 1[drp] Place 1 Drop in left eye in the morning and 1 Drop at noon and 1 Drop in the evening. [facility] clonazePAM 1 mg tablet 2022-08 00:00: 00 08-05 00:00 :00 No [id number] TAKE 1 TABLET BY MOUTH FOUR TIMES DAILY NEEDED FOR PANIC [facility] erythromyci n 5 mg/gram (0.5 %) ophthalmic ointment 2022-08 00:00: 00 07-09 00:00 :00 No [id number] 9106 .5[in_u s] Place 0.5 Inches in left eye 4 (four) times daily. [facility] ALBUTEROL 90 mcg/actuati on inhaler 2022-08 00:00: 00 10-08 00:00 :00 No [id number] INHALE 2 PUFFS BY MOUTH EVERY 6 HOURS NEEDED FOR WHEEZING, SHORTNESS OF BREATH OR BRONCHOSPA SMS. [facility] clonazePAM 1 mg tablet 2022-08 00:00: 00 07-07 00:00 :00 No [id number] TAKE 1 TABLET BY MOUTH FOUR TIMES DAILY NEEDED FOR PANIC [facility] lisinopriL 40 mg tablet 2022-08 0-18 00:00: 00 10-13 00:00 :00 No 40mg Take 1 tablet by mouth in the morning. [facility] lisinopriL 20 mg tablet 2022-08 0-18 00:00: 00 05-20 00:00 :00 No [id number] 40mg Take 2 tablets by mouth in the morning. TAKE 1 TABLET BY MOUTH IN THE MORNING [facility] GLIPIZIDE XL 5 mg 24 hr tablet 2022-08 0- 00:00: 00 08-10 00:00 :00 No [id number] 5mg TAKE 1 TABLET BY MOUTH DAILY WITH BREAKFAST [facility] METFORMIN 850 mg tablet 2022-08 0- 00:00: 00 07-10 00:00 :00 No [id number] TAKE 1 TABLET BY MOUTH THREE TIMES DAILY [facility] CARVEDILOL 6.25 mg tablet 2022-08 0-11 00:00: 00 11-16 00:00 :00 No [id number] TAKE 1 TABLET BY MOUTH IN THE MORNING AND IN THE EVENING. TAKE WITH FOOD. [facility] TIZANIDINE 4 mg tablet 2022-08 00:00: 00 08-10 00:00 :00 No [id number] TAKE 1 TABLET BY MOUTH EVERY 8 HOURS NEEDED [facility] NYSTATIN 100,000 unit/mL suspension 2022-08 00:00: 00 07-09 00:00 :00 No [id number] SHAKE LIQUID AND TAKE 5 ML BY MOUTH FOUR TIMES DAILY [facility] LISINOPRIL 20 mg tablet 2022-08 00:00: 00 05-20 00:00 :00 No [id number] 20mg TAKE 1 TABLET BY MOUTH IN THE MORNING [facility] neomycin-po lymyxin-gra micidin ophthalmic drops 2022-08 00:00: 00 07-09 00:00 :00 No [id number] 1[drp] Place 1 Drop in left eye in the morning and 1 Drop in the evening. [facility] FLUCONAZOLE 150 mg tablet 04-30 00:00: 00 Yes [id number] TAKE 1 TABLET BY MOUTH 1 TIME NOW FOR 1 DOSE [facility] GABAPENTIN 300 mg capsule 04-30 00:00: 00 07-30 00:00 :00 No [id number] TAKE 1 CAPSULE BY MOUTH FOUR TIMES DAILY [facility] FUROSEMIDE 80 mg tablet 04-13 00:00: 00 07-12 00:00 :00 No [id number] 80mg TAKE 1 TABLET BY MOUTH IN THE MORNING [facility] SPIRONOLACT ONE 25 mg tablet 04-13 00:00: 00 09-15 00:00 :00 No [id number] TAKE 1 TABLET BY MOUTH IN THE MORNING AND IN THE EVENING [facility] fluconazole (DIFLUCAN) 150 mg tablet 04-13 00:00: 00 04-14 04:59 :00 No [id number] 150mg Take 1 tablet by mouth once now for 1 dose. [facility] clonazePAM 1 mg tablet 04-08 00:00: 06-08 00:00 :00 No [id number] 1mg Take 1 tablet by mouth 4 (four) times daily as needed for Other (panic). [facility] ALBUTEROL 90 mcg/actuati on inhaler 03-30 00:00: 00 06-29 00:00 :00 No [id number] INHALE 2 PUFFS BY MOUTH EVERY 6 HOURS NEEDED FOR WHEEZING, SHORTNESS OF BREATH OR BRONCHOSPA SMS. [facility] amLODIPine 10 mg tablet 03-26 00:00: 00 09-11 00:00 :00 No [id number] 10mg Take 1 tablet by mouth in the morning. [facility] lisinopriL 40 mg tablet 03-26 00:00: 00 07-09 00:00 :00 No [id number] 40mg Take 1 tablet by mouth in the morning. [facility] Insulin [place], Disposable, (BD ULTRAFINE III MINI PEN) 31 gauge x 3/16" Ndle 02-25 00:00: 00 07-10 00:00 :00 No [id number] USE DIRECTED FOUR TIMES DAILY. Dx E11.9 [facility] glipiZIDE XL 5 mg 24 hr tablet 02-25 00:00: 00 05-14 00:00 :00 No [id number] 5mg Take 1 tablet by mouth daily with breakfast. [facility] TIZANIDINE 4 mg tablet 02-23 00:00: 00 05-13 00:00 :00 No [id number] TAKE 1 TABLET BY MOUTH EVERY 8 HOURS NEEDED [facility] METFORMIN 850 mg tablet 02-20 00:00: 00 05-14 00:00 :00 No [id number] TAKE 1 TABLET BY MOUTH THREE TIMES DAILY [facility] ALBUTEROL 90 mcg/actuati on inhaler 14 00:00: 00 03-30 00:00 :00 No [id number] INHALE 2 PUFFS BY MOUTH EVERY 6 HOURS NEEDED FOR WHEEZING, SHORTNESS OF BREATH OR BRONCHOSPA SMS. [facility] clonazePAM 1 mg tablet 02-11 00:00: 00 04-08 00:00 :00 No [id number] 1mg Take 1 tablet by mouth in the morning and 1 tablet at noon and 1 tablet in the evening. [facility] nystatin 100,000 unit/gram powder 01-27 00:00: 00 07-09 00:00 :00 No [id number] Apply to area(s) 2 (two) times daily. [facility] nystatin 100,000 unit/mL suspension 01-26 00:00: 00 Yes [id number] 201090I Take 5 mL by mouth 4 (four) times daily. [facility] SPIRONOLACT ONE 25 mg tablet 01-26 00:00: 00 04-13 00:00 :00 No [id number] TAKE 1 TABLET BY MOUTH IN THE MORNING AND IN THE EVENING [facility] nystatin 100,000 unit/gram powder 01-12 00:00: 00 07-22 00:00 :00 No [id number] Apply to area(s) 2 (two) times daily. [facility] traMADoL 50 mg tablet 01-07 00:00: 00 01-15 04:59 :00 No [id number] 50mg Take 1 tablet by mouth every 6 (six) hours as needed for Pain (scale 4-6) for up to 7 days. Indication s: chronic pain [facility] nystatin 100,000 unit/gram powder 01-02 00:00: 00 01-12 00:00 :00 No [id number] Apply to area(s) 2 (two) times daily. [facility] NYSTATIN 100,000 unit/mL suspension 01-01 00:00: 00 01-26 00:00 :00 No [id number] SHAKE LIQUID AND TAKE 5 ML BY MOUTH FOUR TIMES DAILY [facility] gabapentin 300 mg capsule 12-28 00:00: 00 04-30 00:00 :00 No [id number] TAKE 1 CAPSULE BY MOUTH FOUR TIMES DAILY [facility] escitalopra m oxalate 20 mg tablet 12-22 10:42: 08 12-22 00:00 :00 No 1 tablet [facility] fluconazole (DIFLUCAN) 150 mg tablet 12-22 00:00: 00 04-13 00:00 :00 No [id number] Weekly for 4 weeks [facility] nystatin 100,000 unit/gram powder 12-22 00:00: 00 01-02 00:00 :00 No [id number] Apply to area(s) 2 (two) times daily. [facility] venlafaxine XR 150 mg 24 hr capsule 12-20 00:00: 00 Yes [facility] travoprost 0.004 % ophthalmic solution 12-17 00:00: 00 Yes INSTILL 1 DROP IN BOTH EYES EVERY NIGHT AT BEDTIME [facility] ALBUTEROL 90 mcg/actuati on inhaler 12-17 00:00: 00 02-13 00:00 :00 No [id number] INHALE 2 PUFFS BY MOUTH EVERY 6 HOURS NEEDED FOR WHEEZING, SHORTNESS OF BREATH OR BRONCHOSPA SMS. [facility] clonazePAM 1 mg tablet 12-15 00:00: 00 02-11 00:00 :00 No [id number] 1mg Take 1 tablet by mouth in the morning and 1 tablet at noon and 1 tablet in the evening. [facility] metoprolol tartrate 25 mg tablet 12-10 00:00: 00 Yes [id number] 25mg Take 1 tablet by mouth in the morning and 1 tablet in the evening. [facility] TIZANIDINE 4 mg tablet 12-08 00:00: 00 02-23 00:00 :00 No [id number] TAKE 1 TABLET BY MOUTH EVERY 8 HOURS NEEDED [facility] traMADoL 50 mg tablet 12-08 00:00: 00 12-16 04:59 :00 No [id number] 50mg Take 1 tablet by mouth every 6 (six) hours as needed for Pain (scale 4-6) for up to 7 days. Indication s: chronic pain [facility] metFORMIN 850 mg tablet 12-06 00:00: 00 02-20 00:00 :00 No [id number] TAKE 1 TABLET BY MOUTH THREE TIMES DAILY [facility] lisinopriL 20 mg tablet 11-27 00:00: 00 05-13 00:00 :00 No [id number] 20mg Take 1 tablet by mouth in the morning. [facility] carvediloL 6.25 mg tablet 11-27 00:00: 00 05-13 00:00 :00 No [id number] 6.25mg Take 1 tablet by mouth in the morning and 1 tablet in the evening. [facility] amoxicillin 500 mg tablet 11-27 00:00: 00 12-22 00:00 :00 No [id number] 500mg Take 1 tablet by mouth in the morning and 1 tablet at noon and 1 tablet in the evening. [facility] escitalopra m oxalate 20 mg tablet 11-12 09:26: 18 Yes 1 tablet [facility] furosemide 80 mg tablet 11-12 00:00: 00 04-13 00:00 :00 No [id number] 80mg Take 1 tablet by mouth in the morning. [facility] spironolact one 25 mg tablet 11-12 00:00: 00 01-26 00:00 :00 No [id number] 25mg Take 1 tablet by mouth in the morning and 1 tablet in the evening. [facility] traMADoL 50 mg tablet 11-12 00:00: 00 11-20 04:59 :00 No [id number] 50mg Take 1 tablet by mouth every 6 (six) hours as needed for Pain (scale 4-6) for up to 7 days. Indication s: chronic pain [facility] nystatin 100,000 unit/mL suspension 11-05 00:00: 00 01-01 00:00 :00 No [id number] Take 5 mL by mouth 4 (four) times daily. [facility] azelastine 137 mcg (0.1 %) nasal spray 10-30 00:00: 00 11-15 00:00 :00 No [id number] 1{spray } Use 1 [place] in each nostril in the morning and 1 [place] in the evening. Use in each nostril as directed [facility] benzonatate (TESSALON PERLES) 100 mg capsule 10-30 00:00: 00 07-09 00:00 :00 No [id number] 100mg Take 1 capsule by mouth every 8 (eight) hours as needed for Cough. [facility] CHLORHEXIDI NE 0.12 % mouthwash 10-27 00:00: 00 08-19 00:00 :00 No [id number] SWISH AND SPIT 15 ML BY MOUTH TWICE DAILY [facility] traMADoL 50 mg tablet 10-27 00:00: 00 11-04 04:59 :00 No [id number] 50mg Take 1 tablet by mouth every 6 (six) hours as needed for Pain (scale 4-6) for up to 7 days. Indication s: chronic pain [facility] lisinopriL (ZESTRIL) 40 mg tablet 10-17 00:00: 00 11-27 00:00 :00 No [id number] 40mg Take 1 tablet by mouth in the morning. [facility] clonazePAM 1 mg tablet 10-15 00:00: 00 12-15 00:00 :00 No [id number] 1mg Take 1 tablet by mouth in the morning and 1 tablet at noon and 1 tablet in the evening. [facility] NIFEdipine ER 60 mg tablet 10-07 00:00: 00 11-27 00:00 :00 No [id number] 60mg Take 1 tablet by mouth in the morning and 1 tablet in the evening. [facility] glipiZIDE XL 5 mg 24 hr tablet 20 00:0002-25 00:00 :00 No [id number] 5mg TAKE 1 TABLET BY MOUTH DAILY WITH BREAKFAST [facility] Mometasone- Formoterol (DULERA) 200-5 mcg/actuati on inhaler 09-10 00:00: 00 Yes [id number] 2{puff} Inhale 2 Puffs in the morning and 2 Puffs in the evening. [facility] nystatin 100,000 unit/mL suspension 09-10 00:00: 01-26 00:00 :00 No [id number] Take 5 mL by mouth 4 (four) times daily. [facility] albuterol 90 mcg/actuati on inhaler 09-10 00:00: 12-17 00:00 :00 No [id number] INHALE 2 PUFFS BY MOUTH EVERY 6 HOURS NEEDED FOR WHEEZING, SHORTNESS OF BREATH OR BRONCHOSPA [facility] traMADoL 50 mg tablet 09-10 00:00: 09-18 05:59 :00 No [id number] 50mg Take 1 tablet by mouth every 6 (six) hours as needed for Pain (scale 4-6) for up to 7 days. Indication s: chronic pain [facility] lancets 33 gauge Misc 09-02 00:00: 00 10-08 00:00 :00 No Use as directed twice a day for E11.9 [facility] blood sugar diagnostic (TRUE METRIX GLUCOSE TEST STRIP) strip 09-02 00:00: 00 09-11 00:00 :00 No [id number] Use as directed to check blood sugar QID DX: E11.9 [facility] fluconazole (DIFLUCAN) 150 mg tablet 09-02 00:00: 00 04-13 00:00 :00 No 150mg Take 1 tablet by mouth every 5 (five) days. [facility] carvediloL 6.25 mg tablet 09-01 00:00: 00 11-27 00:00 :00 No 6.25mg Take 1 tablet by mouth in the morning and 1 tablet in the evening. [facility] Cholecalcif emmanuel, Vitamin D3, 1,250 mcg (50,000 unit) capsule 08-30 00:00: 00 Yes 1{capsu le} Take 1 capsule by mouth weekly. [facility] Cholecalcif emmanuel, Vitamin D3, 1,250 mcg (50,000 unit) capsule 08-30 00:00: 00 Yes [id number] Take 1 capsule by mouth weekly. [facility] clonazePAM 1 mg tablet 08-20 00:00: 00 10-15 00:00 :00 No [id number] 1mg Take 1 tablet by mouth in the morning and 1 tablet at noon and 1 tablet in the evening. [facility] TIZANIDINE 4 mg tablet 08-19 00:00: 00 12-08 00:00 :00 No [id number] TAKE 1 TABLET BY MOUTH EVERY 8 HOURS NEEDED [facility] venlafaxine XR 37.5 mg 24 hr capsule 08-16 00:00: 00 Yes TAKE 1 CAPSULE BY MOUTH EVERY MORNING WITH VENLAFAXIN E ER 150MG [facility] acetic acid 0.25 % irrigation solution 08-12 00:00: 00 Yes USE DIRECTED FOR WOUND CARE DAILY [facility] cefepime in iso-osm dextrose (CEFEPIME IN DEXTROSE,IS O-OSM) 2 gram/100 mL PgBk 08-10 00:00: 00 07-09 00:00 :00 No [facility] nystatin 100,000 unit/mL suspension 08-08 00:00: 00 08-19 05:59 :00 No [id number] U Swish and spit out 10 mL 4 (four) times daily for 10 days. [facility] traMADoL 50 mg tablet 08-07 12:07: 49 08-07 00:00 :00 No 1-2 tablet as needed [facility] escitalopra m oxalate 20 mg tablet 08-07 11:59: 27 Yes 1 tablet [facility] SANTYL 250 unit/gram ointment 1-04 00:00: 00 Yes APPLY NICKEL THICK TO WOUND DAILY [facility] vancomycin 5 gram injection 2021-08 00:00: 00 07-09 00:00 :00 No [facility] HYDROcodone -acetaminop hen 7.5-325 mg per tablet 2021-08 00:00: 00 09-10 00:00 :00 No [id number] 1{tbl} Take 1 tablet by mouth every 6 (six) hours as needed for Pain. Indication s: chronic pain [facility] gabapentin 300 mg capsule 2021-08 00:00: 00 12-28 00:00 :00 No [id number] TAKE 1 CAPSULE BY MOUTH FOUR TIMES DAILY [facility] latanoprost 0.005 % ophthalmic drops 2021-08 00:00: 00 Yes INSTILL 1 DROP INTO BOTH EYES ONCE DAILY [facility] NIFEdipine ER 60 mg tablet 2021-08 00:00: 00 10-07 00:00 :00 No [id number] 60mg Take 1 tablet by mouth in the morning and 1 tablet in the evening. [facility] ondansetron (ZOFRAN (PF)) injection 4 mg 2021-08 20:45: 00 07-19 20:00 :00 No 4mg 4 mg, Slow IV Push, ONCE, 1 dose, On 07/19/22 at 1445, GEOVANI [facility] morpHINE (4 mg/mL) injection 4 mg 2021-08 19:45: 00 07-19 20:00 :00 No 4mg 4 mg, Slow IV Push, ONCE, 1 dose, On 07/19/22 at 1345, STAT [facility] cephALEXin (KEFLEX) 500 mg capsule 2021-08 00:00: 00 07-09 00:00 :00 No [id number] 500mg Take 1 capsule by mouth 4 (four) times daily. [facility] ciprofloxac in HCl 500 mg tablet 2021-08 00:00: 00 09-02 00:00 :00 No [id number] 500mg Take 1 tablet by mouth in the morning and 1 tablet in the evening. [facility] furosemide 80 mg tablet 2021-08 00:00: 00 11-12 00:00 :00 No 80mg Take 1 tablet by mouth every 48 (forty-eig ht) hours. [facility] spironolact one 25 mg tablet 2021-08 00:00: 00 11-12 00:00 :00 No 25mg Take 1 tablet by mouth every 48 (forty-eig ht) hours. [facility] quinapriL 40 mg tablet 2021-08 00:00: 00 10-17 00:00 :00 No [id number] 40mg Take 1 tablet by mouth every morning. [facility] HYDROcodone -acetaminop hen 7.5-325 mg per tablet 2021-08 00:00: 00 07-30 00:00 :00 No [id number] 1{tbl} Take 1 tablet by mouth every 6 (six) hours as needed for Pain. Indication s: chronic pain [facility] MUPIROCIN 2 % ointment 2021-08 00:00: 00 07-09 00:00 :00 No [id number] APPLY TOPICALLY TO THE AFFECTED AREA THREE TIMES DAILY [facility] clonazePAM 1 mg tablet 2021-08 00:00: 00 08-20 00:00 :00 No [id number] 1mg Take 1 tablet by mouth in the morning and 1 tablet at noon and 1 tablet in the evening. [facility] furosemide 80 mg tablet 2021-08 00:00: 00 07-10 00:00 :00 No 80mg Take 1 tablet by mouth in the morning. [facility] NIFEdipine ER 30 mg tablet 2021-08 00:00: 00 07-21 00:00 :00 No [id number] 30mg Take 1 tablet by mouth in the morning and 1 tablet in the evening. [facility] insulin degludec (TRESIBA FLEXTOUCH U-200) 200 unit/mL (3 mL) InPn 2021-08 00:00: 00 07-10 00:00 :00 No [id number] ADMINISTER 62 UNITS UNDER THE SKIN THREE TIMES DAILY [facility] HYDROcodone -acetaminop hen 7.5-325 mg per tablet 2021-08 00:00: 00 07-02 00:00 :00 No [id number] 1{tbl} Take 1 tablet by mouth every 6 (six) hours as needed for Pain. Indication s: chronic pain [facility] AMLODIPINE 5 mg tablet 2021-08 00:00: 00 06-10 00:00 :00 No [id number] 5mg TAKE 1 TABLET BY MOUTH DAILY [facility] TIZANIDINE 4 mg tablet 2021-08 00:00: 00 08-19 00:00 :00 No [id number] TAKE 1 TABLET BY MOUTH EVERY 8 HOURS NEEDED [facility] empaglifloz in (JARDIANCE) 10 mg 2021-08 00:00: 00 07-10 00:00 :00 No [id number] 10mg Take 1 tablet by mouth in the morning. [facility] amoxicillin 500 mg tablet 2021-08 00:00: 00 07-09 00:00 :00 No [id number] 500mg Take 1 tablet by mouth in the morning and 1 tablet in the evening. [facility] METFORMIN 850 mg tablet 2021-08 00:00: 00 12-06 00:00 :00 No [id number] TAKE 1 TABLET BY MOUTH THREE TIMES DAILY [facility] GLIPIZIDE XL 5 mg 24 hr tablet 2021-08 00:00: 00 09-22 00:00 :00 No [id number] 5mg TAKE 1 TABLET BY MOUTH DAILY WITH BREAKFAST [facility] ALBUTEROL 90 mcg/actuati on inhaler 2021-08 00:00: 00 09-10 00:00 :00 No [id number] INHALE 2 PUFFS BY MOUTH EVERY 6 HOURS NEEDED FOR WHEEZING, SHORTNESS OF BREATH OR BRONCHOSPA [facility] QUINAPRIL 40 mg tablet 2021-08 0 00:00: 07-09 00:00 :00 No [id number] 40mg TAKE 1 TABLET BY MOUTH EVERY MORNING [facility] HYDROcodone -acetaminop hen 7.5-325 mg per tablet 2021-08 0 00:00: 06-04 00:00 :00 No [id number] 1{tbl} Take 1 tablet by mouth every 6 (six) hours as needed for Pain. Indication s: chronic pain [facility] gabapentin 300 mg capsule 04-29 00:00: 00 07-22 00:00 :00 No [id number] TAKE 1 CAPSULE BY MOUTH FOUR TIMES DAILY [facility] clonazePAM 1 mg tablet 04-28 00:00: 06-23 00:00 :00 No [id number] 1mg Take 1 tablet by mouth in the morning and 1 tablet at noon and 1 tablet in the evening. [facility] HYDROcodone -acetaminop hen 7.5-325 mg per tablet 04-09 00:00: 05-07 00:00 :00 No [id number] 1{tbl} Take 1 tablet by mouth every 6 (six) hours as needed for Pain. Indication s: chronic pain [facility] VERAPAMIL 240 mg 24 hr capsule 8- 00:00: 06-10 00:00 :00 No [id number] 240mg TAKE 1 CAPSULE BY MOUTH DAILY [facility] ALBUTEROL 90 mcg/actuati on inhaler 8- 00:00: 05-23 00:00 :00 No [id number] INHALE 2 PUFFS BY MOUTH EVERY 6 HOURS NEEDED FOR WHEEZING, SHORTNESS OF BREATH OR BRONCHOSPA [facility] HYDROcodone -acetaminop hen 7.5-325 mg per tablet 8- 00:00: 00 04-09 00:00 :00 No [id number] 1{tbl} Take 1 tablet by mouth every 6 (six) hours as needed for Pain. Indication s: chronic pain [facility] TIZANIDINE 4 mg tablet 03-03 00:00: 00 05-26 00:00 :00 No [id number] TAKE 1 TABLET BY MOUTH EVERY 8 HOURS NEEDED [facility] QUINAPRIL 40 mg tablet 03-03 00:00: 05-23 00:00 :00 No [id number] 40mg TAKE 1 TABLET BY MOUTH EVERY MORNING [facility] glipiZIDE XL 5 mg 24 hr tablet 02-27 00:00: 00 05-23 00:00 :00 No [id number] 5mg TAKE 1 TABLET BY MOUTH DAILY WITH BREAKFAST [facility] clonazePAM 1 mg tablet 02-24 00:00: 00 04-28 00:00 :00 No [id number] 1mg Take 1 tablet by mouth in the morning and 1 tablet at noon and 1 tablet in the evening. [facility] nirmatrelvi r-ritonavir (PAXLOVID, EUA,) 150 mg x 2- 100 mg tablet 02-12 00:00: 00 05-23 00:00 :00 No [id number] 3{tbl} Take 3 tablets by mouth in the morning and 3 tablets in the evening. [facility] meloxicam 7.5 mg tablet 02-11 00:00: 00 11-15 00:00 :00 No 7.5mg Take 1 tablet by mouth in the morning. [facility] HYDROcodone -acetaminop hen 7.5-325 mg per tablet 02-10 00:00: 00 Yes [id number] 1{tbl} Take 1 tablet by mouth every 6 (six) hours as needed for Pain. Indication s: chronic pain [facility] chlorhexidi ne 0.12 % mouthwash 02-05 00:00: 00 10-27 00:00 :00 No [id number] 15mL Swish and spit out 15 mL 2 (two) times daily. [facility] albuterol 90 mcg/actuati on inhaler 02-05 00:00: 00 03-26 00:00 :00 No [id number] INHALE 2 PUFFS BY MOUTH EVERY 6 HOURS NEEDED FOR WHEEZING, SHORTNESS OF BREATH OR BRONCHOSPA SMS [facility] Insulin [place], Disposable, (BD ULTRAFINE III MINI PEN) 31 gauge x 3/16" Ndle 02-02 00:00: 00 Yes [id number] USE DIRECTED FOUR TIMES DAILY. Dx E11.9 [facility] Insulin [place], Disposable, (BD ULTRAFINE III MINI PEN) 31 gauge x 3/16" Ndle 02-02 00:00: 00 02-25 00:00 :00 No [id number] USE DIRECTED FOUR TIMES DAILY. Dx E11.9 [facility] TRESIBA FLEXTOUCH U-200 200 unit/mL (3 mL) InPn 01-26 00:00: 00 06-05 00:00 :00 No [id number] ADMINISTER 62 UNITS UNDER THE SKIN THREE TIMES DAILY [facility] VERAPAMIL 240 mg 24 hr capsule 12-31 00:00: 00 03-31 00:00 :00 No [id number] 240mg TAKE 1 CAPSULE BY MOUTH DAILY [facility] mupirocin 2 % ointment 12-25 00:00: 00 06-30 00:00 :00 No [id number] Apply to area(s) 3 (three) times daily. [facility] aspirin 325 mg tablet 12-10 09:43: 40 06-29 00:00 :00 No 325mg Take 325 mg by mouth daily. [facility] ketoconazol e 2 % shampoo 12-10 00:00: 00 Yes [id number] Apply to area(s) once daily as needed for Itching. [facility] METFORMIN 850 mg tablet 12-02 00:00: 00 05-23 00:00 :00 No [id number] TAKE 1 TABLET BY MOUTH THREE TIMES DAILY [facility] lancets 33 gauge Misc 4-25 00:00: 00 09-02 00:00 :00 No Use as directed twice a day for E11.9 [facility] gabapentin 300 mg capsule 4-11 00:00: 00 04-29 00:00 :00 No [id number] TAKE 1 CAPSULE BY MOUTH FOUR TIMES DAILY [facility] TRUE METRIX GLUCOSE METER Kit 16 00:00: 00 10-27 00:00 :00 No [id number] Use as directed for 4 times a day glucose check, ICD E11.9 [facility] TRUE METRIX GLUCOSE TEST STRIP strip 10-16 00:00: 00 09-02 00:00 :00 No [id number] Use as directed to check blood sugar QID DX: E11.9 [facility] SPIRONOLACT ONE 25 mg tablet 09-02 00:00: 00 07-10 00:00 :00 No [id number] TAKE 1 TABLET BY MOUTH TWICE DAILY [facility] FUROSEMIDE 80 mg tablet 09-02 00:00: 00 06-11 00:00 :00 No TAKE 1 TABLET BY MOUTH TWICE DAILY [facility] AMLODIPINE 5 mg tablet 09-02 00:00: 00 05-30 00:00 :00 No [id number] 5mg TAKE 1 TABLET BY MOUTH DAILY [facility] venlafaxine XR 150 mg 24 hr capsule - 00:00: 00 09-10 00:00 :00 No [id number] TK 1 C PO QD [facility] omega-3 fatty acids-vitam in E (FISH OIL) 1,000 mg capsule 2020-08 09:44: 23 Yes 1g Take 1 g by mouth daily. [facility] omega-3 fatty acids-vitam in E (FISH OIL) 1,000 mg capsule 2020-08 09:44: 23 Yes 1g Take 1 g by mouth daily. [facility] aspirin 81 mg EC tablet 2020-08 13:59: 00 05-10 00:00 :00 No 81mg Take 81 mg by mouth daily. [facility] Methylcellu lose, with Sugar, (CITRUCEL, SUCROSE,) powder 04-25 00:00: 00 Yes [id number] 1{scoop } Take 1 Scoop by mouth daily. Mixed with water [facility] Methylcellu lose, with Sugar, (CITRUCEL, SUCROSE,) powder 04-25 00:00: 00 Yes [id number] 1{scoop } Take 1 Scoop by mouth daily. Mixed with water [facility] chlorhexidi ne 4 % external liquid 04-24 00:00: 00 Yes [id number] Apply to area(s) once daily as needed for Wound care. [facility] chlorhexidi ne 4 % external liquid 04-24 00:00: 00 07-09 00:00 :00 No [id number] Apply to area(s) once daily as needed for Wound care. [facility] ONETOUCH DELICA PLUS LANCET 30 gauge Misc 02-26 00:00: 00 10-27 00:00 :00 No [id number] Use as directed for twice a day glucose monitoring for ICD E11.9 [facility] HYDROcodone -acetaminop hen 7.5-325 mg per tablet 2019-08 00:00: 00 08-08 00:00 :00 No [id number] 1{tbl} Take 1 tablet by mouth every 6 (six) hours as needed for Pain. Indication s: chronic pain [facility] spironolact one 25 mg tablet 2019-08 00:00: 00 09-13 00:00 :00 No [id number] 25mg Take 1 tablet by mouth 2 (two) times daily. [facility] albuterol 90 mcg/actuati on inhaler 2019-08 00:00: 00 01-25 00:00 :00 No [id number] INHALE 2 PUFFS BY MOUTH EVERY 6 HOURS NEEDED FOR WHEEZING, SHORTNESS OF BREATH OR BRONCHOSPA [facility] metFORMIN 850 mg tablet 2019-08 00:00: 09-13 00:00 :00 No 850mg Take 1 tablet by mouth 3 (three) times daily. [facility] furosemide 80 mg tablet 2019-08 00:00: 09-13 00:00 :00 No 80mg Take 1 tablet by mouth 2 (two) times daily. [facility] insulin degludec (TRESIBA FLEXTOUCH U-200) 200 unit/mL (3 mL) InPn 2019-08 00:00: 09-28 00:00 :00 No [id number] 54U inject 54 Units under the skin 3 (three) times daily. DX: E11.9 [facility] clonazePAM 1 mg tablet 2019-08 00:00: 07-23 00:00 :00 No [id number] TAKE 1 TABLET BY MOUTH THREE TIMES DAILY [facility] mupirocin 2 % ointment 2019-08 00:00: 00 04-24 00:00 :00 No [id number] APPLY TO AREA(S) THREE TIMES DAILY [facility] gabapentin 300 mg capsule 04-24 00:00: 00 05-10 00:00 :00 No [id number] TAKE ONE CAPSULE BY MOUTH four TIMES DAILY [facility] liraglutide (VICTOZA 3-ADAMA) 0.6 mg/0.1 mL (18 mg/3 mL) injection 04-13 00:00: 00 09-28 00:00 :00 No 1.8mg inject 1.8 mg under the skin daily. [facility] chlorhexidi ne 0.12 % mouthwash 04-11 00:00: 00 02-05 00:00 :00 No [id number] 15mL Swish and spit out 15 mL 2 (two) times daily. [facility] TIZANIDINE 4 mg tablet 04-10 00:00: 00 08-27 00:00 :00 No [id number] TAKE 1 TABLET BY MOUTH EVERY 8 HOURS NEEDED [facility] diclofenac 75 mg EC tablet 04-04 00:00: 00 06-29 00:00 :00 No [id number] 75mg Take 1 tablet by mouth 2 (two) times daily with meals. [facility] QUINAPRIL 40 mg tablet 03-27 00:00: 09-13 00:00 :00 No [id number] TAKE 1 TABLET BY MOUTH EVERY MORNING [facility] VERAPAMIL 240 mg 24 hr capsule 03-27 00:00: 07-31 00:00 :00 No [id number] 240mg TAKE 1 CAPSULE BY MOUTH DAILY [facility] liraglutide (VICTOZA 2-ADAMA) 0.6 mg/0.1 mL (18 mg/3 mL) injection 03-23 00:00: 00 09-28 00:00 :00 No [id number] ADMINISTER 1.8 MG UNDER THE SKIN EVERY DAY [facility] Insulin [place], Disposable, (BD ULTRAFINE III MINI PEN) 31 gauge x 3/16" Ndle 01-25 00:00: 00 08-14 00:00 :00 No USE DIRECTED FOUR TIMES DAILY. DX:E11.9 [facility] Supply Kit 11-22 00:00: 00 Yes [id number] J40: Brochitis - Dispense # 1 Jose Respironic s (okay for alternativ e brand) for nebulizer treatment [facility] Supply Kit 11-22 00:00: 00 Yes [id number] J40: Brochitis - Dispense # 1 Jose Respironic s (okay for alternativ e brand) for nebulizer treatment [facility] blood sugar diagnostic (TRUE METRIX GLUCOSE TEST STRIP) strip 415 00:00: 00 02-19 00:00 :00 No Use as directed to check blood sugar QID DX: E11.9 [facility] celecoxib 100 mg capsule 4-04 00:00: 00 09-28 00:00 :00 No [id number] 100mg Take 1 capsule by mouth 2 (two) times daily with meals. [facility] meloxicam 7.5 mg tablet 3-22 00:00: 00 11-13 00:00 :00 No [id number] Take 1 tab PO daily only as needed for pain. [facility] verapamil 240 mg SR tablet 2-15 00:00: 00 07-31 00:00 :00 No [facility] venlafaxine XR 150 mg 24 hr capsule 8-03 00:00: 00 08-15 00:00 :00 No TK 1 C PO QD [facility] ALCOHOL PREP PADS PadM 6 00:00: 00 Yes [facility] COMFORT EZ PEN NEEDLES 31 gauge x 5/16" Ndle 6 00:00: 00 08-14 00:00 :00 No [facility] loxapine (LOXITANE) 50 mg capsule 1-20 00:00: 00 Yes [facility] Immunizations Ordered Immunization Name Filled Immunization [...] ABX Free 18-64 YRS 2022-04-03 00:00:00 Completed [facility] Influenza Virus Vaccine Recomb Quad IM, Preserv and ABX Free 18-64 YRS 2022-04-03 00:00:00 Completed [facility] Influenza Virus Vaccine Recomb Quad IM, Preserv and ABX Free 18-64 YRS 2022-04-03 00:00:00 Completed [facility] Influenza Virus Vaccine Recomb Quad IM, Preserv and ABX Free 18-64 YRS 2022-04-03 00:00:00 Completed [facility] Influenza Virus Vaccine Recomb Quad IM, Preserv and ABX Free 18-64 YRS 2022-04-03 00:00:00 Completed [facility] Influenza Virus Vaccine Recomb Quad IM, Preserv and ABX Free 18-64 YRS 2022-04-03 00:00:00 Completed [facility] Influenza Virus Vaccine Recomb Quad IM, Preserv and ABX Free 18-64 YRS 2022-04-03 00:00:00 Completed [facility] Influenza Virus Vaccine Recomb Quad IM, Preserv and ABX Free 18-64 YRS 2022-04-03 00:00:00 Completed [facility] Influenza Virus Vaccine Recomb Quad IM, Preserv and ABX Free 18-64 YRS 2022-04-03 00:00:00 Completed [facility] Influenza Virus Vaccine Recomb Quad IM, Preserv and ABX Free 18-64 YRS 2022-04-03 00:00:00 Completed [facility] Influenza Virus Vaccine Recomb Quad IM, Preserv and ABX Free 18-64 YRS 2022-04-03 00:00:00 Completed [facility] Influenza Virus Vaccine Recomb Quad IM, Preserv and ABX Free 18-64 YRS 2022-04-03 00:00:00 Completed [facility] Influenza Virus Vaccine Recomb Quad IM, Preserv and ABX Free 18-64 YRS 2022-04-03 00:00:00 Completed [facility] Influenza Virus Vaccine Recomb Quad IM, Preserv and ABX Free 18-64 YRS 2022-04-03 00:00:00 Completed [facility] Influenza Virus Vaccine Recomb Quad IM, Preserv and ABX Free 18-64 YRS 2022-04-03 00:00:00 Completed [facility] Influenza Virus Vaccine Recomb Quad IM, Preserv and ABX Free 18-64 YRS 2022-04-03 00:00:00 Completed [facility] Influenza Virus Vaccine Recomb Quad IM, Preserv and ABX Free 18-64 YRS 2022-04-03 00:00:00 Completed [facility] Influenza Virus Vaccine Recomb Quad IM, Preserv and ABX Free 18-64 YRS 2022-04-03 00:00:00 Completed [facility] Influenza Virus Vaccine Recomb Quad IM, Preserv and ABX Free 18-64 YRS 2022-04-03 00:00:00 Completed [facility] Influenza Virus Vaccine Recomb Quad IM, Preserv and ABX Free 18-64 YRS 2022-04-03 00:00:00 Completed [facility] Influenza Virus Vaccine Recomb Quad IM, Preserv and ABX Free 18-64 YRS 2022-04-03 00:00:00 Completed [facility] Influenza Virus Vaccine Recomb Quad IM, Preserv and ABX Free 18-64 YRS 2022-04-03 00:00:00 Completed [facility] Influenza Virus Vaccine Recomb Quad IM, Preserv and ABX Free 18-64 YRS 2022-04-03 00:00:00 Completed [facility] Influenza Virus Vaccine Recomb Quad IM, Preserv and ABX Free 18-64 YRS 2022-04-03 00:00:00 Completed [facility] Influenza Virus Vaccine Recomb Quad IM, Preserv and ABX Free 18-64 YRS 2022-04-03 00:00:00 Completed [facility] Influenza Virus Vaccine Recomb Quad IM, Preserv and ABX Free 18-64 YRS 2022-04-03 00:00:00 Completed [facility] Influenza Virus Vaccine Recomb Quad IM, Preserv and ABX Free 18-64 YRS 2022-04-03 00:00:00 Completed [facility] Influenza Virus Vaccine Recomb Quad IM, Preserv and ABX Free -64 YRS 2022-04-03 00:00:00 Completed [facility] Influenza Virus Vaccine Recomb Quad IM, Preserv and ABX Free 18-64 YRS 2022-04-03 00:00:00 Completed [facility] Influenza Virus Vaccine Recomb Quad IM, Preserv and ABX Free 18-64 YRS 2022-04-03 00:00:00 Completed [facility] Influenza Virus Vaccine Recomb Quad IM, Preserv and ABX Free 18-64 YRS 2022-04-03 00:00:00 Completed [facility] Influenza Virus Vaccine Recomb Quad IM, Preserv and ABX Free -64 YRS 2022-04-03 00:00:00 Completed [facility] Influenza Virus Vaccine Recomb Quad IM, Preserv and ABX Free 18-64 YRS 2022-04-03 00:00:00 Completed [facility] Influenza Virus Vaccine Recomb Quad IM, Preserv and ABX Free 18-64 YRS 2022-04-03 00:00:00 Completed [facility] Influenza Virus Vaccine Recomb Quad IM, Preserv and ABX Free 18-64 YRS 2022-04-03 00:00:00 Completed [facility] Influenza Virus Vaccine Recomb Quad IM, Preserv and ABX Free 18-64 YRS 2022-04-03 00:00:00 Completed [facility] Influenza Virus Vaccine Recomb Quad IM, Preserv and ABX Free 18-64 YRS 2022-04-03 00:00:00 Completed [facility] Influenza Virus Vaccine Recomb Quad IM, Preserv and ABX Free 18-64 YRS 2022-04-03 00:00:00 Completed [facility] Influenza Virus Vaccine Recomb Quad IM, Preserv and ABX Free 18-64 YRS 2022-04-03 00:00:00 Completed [facility] Influenza Virus Vaccine Recomb Quad IM, Preserv and ABX Free 18-64 YRS 2022-04-03 00:00:00 Completed [facility] Influenza Virus Vaccine Recomb Quad IM, Preserv and ABX Free 18-64 YRS 2022-04-03 00:00:00 Completed [facility] Influenza Virus Vaccine Recomb Quad IM, Preserv and ABX Free 18-64 YRS 2022-04-03 00:00:00 Completed [facility] Influenza Virus Vaccine Recomb Quad IM, Preserv and ABX Free 18-64 YRS 2022-04-03 00:00:00 Completed [facility] Influenza Virus Vaccine Recomb Quad IM, Preserv and ABX Free 18-64 YRS 2022-04-03 00:00:00 Completed [facility] Influenza Virus Vaccine Recomb Quad IM, Preserv and ABX Free 18-64 YRS 2022-04-03 00:00:00 Completed [facility] Influenza Virus Vaccine Recomb Quad IM, Preserv and ABX Free 18-64 YRS 2022-04-03 00:00:00 Completed [facility] Influenza Virus Vaccine Recomb Quad IM, Preserv and ABX Free 18-64 YRS 2022-04-03 00:00:00 Completed [facility] Influenza Virus Vaccine Recomb Quad IM, Preserv and ABX Free 18-64 YRS 2022-04-03 00:00:00 Completed [facility] Influenza Virus Vaccine Recomb Quad IM, Preserv and ABX Free 18-64 YRS 2022-04-03 00:00:00 Completed [facility] Influenza Virus Vaccine Recomb Quad IM, Preserv and ABX Free 18-64 YRS 2022-04-03 00:00:00 Completed [facility] Influenza Virus Vaccine Recomb Quad IM, Preserv and ABX Free 18-64 YRS 2022-04-03 00:00:00 Completed [facility] Influenza Virus Vaccine Recomb Quad IM, Preserv and ABX Free 18-64 YRS 2022-04-03 00:00:00 Completed [facility] Influenza Virus Vaccine Recomb Quad IM, Preserv and ABX Free 18-64 YRS 2022-04-03 00:00:00 Completed [facility] Influenza Virus Vaccine Recomb Quad IM, Preserv and ABX Free 18-64 YRS 2022-04-03 00:00:00 Completed [facility] Influenza Virus Vaccine Recomb Quad IM, Preserv and ABX Free 18-64 YRS 2022-04-03 00:00:00 Completed [facility] Influenza Virus Vaccine Recomb Quad IM, Preserv and ABX Free 18-64 YRS 2022-04-03 00:00:00 Completed [facility] Influenza Virus Vaccine Recomb Quad IM, Preserv and ABX Free -64 YRS 2022-04-03 00:00:00 Completed [facility] Influenza Virus Vaccine Recomb Quad IM, Preserv and ABX Free -64 YRS 2022-04-03 00:00:00 Completed [facility] Influenza Virus Vaccine Recomb Quad IM, Preserv and ABX Free 18-64 YRS 2022-04-03 00:00:00 Completed [facility] Influenza Virus Vaccine Recomb Quad IM, Preserv and ABX Free 18-64 YRS 2022-04-03 00:00:00 Completed [facility] Influenza Virus Vaccine Recomb Quad IM, Preserv and ABX Free 18-64 YRS 2022-04-03 00:00:00 Completed [facility] Influenza Virus Vaccine Recomb Quad IM, Preserv and ABX Free 18-64 YRS 2022-04-03 00:00:00 Completed [facility] Influenza Virus Vaccine Recomb Quad IM, Preserv and ABX Free 18-64 YRS 2022-04-03 00:00:00 Completed [facility] Influenza Virus Vaccine Recomb Quad IM, Preserv and ABX Free 18-64 YRS 2022-04-03 00:00:00 Completed [facility] Influenza Virus Vaccine Recomb Quad IM, Preserv and ABX Free 18-64 YRS 2022-04-03 00:00:00 Completed [facility] Influenza Virus Vaccine Recomb Quad IM, Preserv and ABX Free 18-64 YRS 2022-04-03 00:00:00 Completed [facility] Influenza Virus Vaccine Recomb Quad IM, Preserv and ABX Free 18-64 YRS 2022-04-03 00:00:00 Completed [facility] Influenza Virus Vaccine Recomb Quad IM, Preserv and ABX Free -64 YRS 2022-04-03 00:00:00 Completed [facility] Influenza Virus Vaccine Recomb Quad IM, Preserv and ABX Free 18-64 YRS 2022-04-03 00:00:00 Completed [facility] Influenza Virus Vaccine Recomb Quad IM, Preserv and ABX Free 18-64 YRS 2022-04-03 00:00:00 Completed [facility] Influenza Virus Vaccine Recomb Quad IM, Preserv and ABX Free 18-64 YRS 2022-04-03 00:00:00 Completed [facility] Influenza Virus Vaccine Recomb Quad IM, Preserv and ABX Free -64 YRS 2022-04-03 00:00:00 Completed [facility] Influenza Virus Vaccine Recomb Quad IM, Preserv and ABX Free 18-64 YRS 2022-04-03 00:00:00 Completed [facility] Influenza Virus Vaccine Recomb Quad IM, Preserv and ABX Free 18-64 YRS 2022-04-03 00:00:00 Completed [facility] Influenza Virus Vaccine Recomb Quad IM, Preserv and ABX Free 18-64 YRS 2022-04-03 00:00:00 Completed [facility] Influenza Virus Vaccine Recomb Quad IM, Preserv and ABX Free -64 YRS 2022-04-03 00:00:00 Completed [facility] Influenza Virus Vaccine Recomb Quad IM, Preserv and ABX Free 18-64 YRS 2022-04-03 00:00:00 Completed [facility] Influenza Virus Vaccine Recomb Quad IM, Preserv and ABX Free -64 YRS 2022-04-03 00:00:00 Completed [facility] Influenza Virus Vaccine Recomb Quad IM, Preserv and ABX Free 18-64 YRS 2022-04-03 00:00:00 Completed [facility] Influenza Virus Vaccine Recomb Quad IM, Preserv and ABX Free 18-64 YRS 2022-04-03 00:00:00 Completed [facility] Influenza Virus Vaccine Recomb Quad IM, Preserv and ABX Free 18-64 YRS 2022-04-03 00:00:00 Completed [facility] Influenza Virus Vaccine Recomb Quad IM, Preserv and ABX Free 18-64 YRS 2022-04-03 00:00:00 Completed [facility] Influenza Virus Vaccine Recomb Quad IM, Preserv and ABX Free 18-64 YRS 2022-04-03 00:00:00 Completed [facility] Influenza Virus Vaccine Recomb Quad IM, Preserv and ABX Free 18-64 YRS 2022-04-03 00:00:00 Completed [facility] Influenza Virus Vaccine Recomb Quad IM, Preserv and ABX Free 18-64 YRS 2022-04-03 00:00:00 Completed [facility] Influenza Virus Vaccine Recomb Quad IM, Preserv and ABX Free 18-64 YRS 2022-04-03 00:00:00 Completed [facility] Influenza Virus Vaccine Recomb Quad IM, Preserv and ABX Free 18-64 YRS 2022-04-03 00:00:00 Completed [facility] Influenza Virus Vaccine Recomb Quad IM, Preserv and ABX Free 18-64 YRS 2022-04-03 00:00:00 Completed [facility] Influenza Virus Vaccine Recomb Quad IM, Preserv and ABX Free 18-64 YRS 2022-04-03 00:00:00 Completed [facility] Influenza Virus Vaccine Recomb Quad IM, Preserv and ABX Free 18-64 YRS 2022-04-03 00:00:00 Completed [facility] Influenza Virus Vaccine Recomb Quad IM, Preserv and ABX Free 18-64 YRS 2022-04-03 00:00:00 Completed [facility] Influenza Virus Vaccine Recomb Quad IM, Preserv and ABX Free 18-64 YRS 2022-04-03 00:00:00 Completed [facility] Influenza Virus Vaccine Recomb Quad IM, Preserv and ABX Free 18-64 YRS 2022-04-03 00:00:00 Completed [facility] Influenza Virus Vaccine Recomb Quad IM, Preserv and ABX Free 18-64 YRS 2022-04-03 00:00:00 Completed [facility] Influenza Virus Vaccine Recomb Quad IM, Preserv and ABX Free 18-64 YRS 2022-04-03 00:00:00 Completed [facility] Influenza Virus Vaccine Recomb Quad IM, Preserv and ABX Free 18-64 YRS 2022-04-03 00:00:00 Completed [facility] Influenza Virus Vaccine Recomb Quad IM, Preserv and ABX Free 18-64 YRS 2022-04-03 00:00:00 Completed [facility] Influenza Virus Vaccine Recomb Quad IM, Preserv and ABX Free 18-64 YRS 2022-04-03 00:00:00 Completed [facility] Influenza Virus Vaccine Recomb Quad IM, Preserv and ABX Free 18-64 YRS 2022-04-03 00:00:00 Completed [facility] Influenza Virus Vaccine Recomb Quad IM, Preserv and ABX Free 18-64 YRS 2022-04-03 00:00:00 Completed [facility] Influenza Virus Vaccine Recomb Quad IM, Preserv and ABX Free 18-64 YRS 2022-04-03 00:00:00 Completed [facility] Influenza Virus Vaccine Recomb Quad IM, Preserv and ABX Free 18-64 YRS 2022-04-03 00:00:00 Completed [facility] Influenza Virus Vaccine Recomb Quad IM, Preserv and ABX Free 18-64 YRS 2022-04-03 00:00:00 Completed [facility] Influenza Virus Vaccine Recomb Quad IM, Preserv and ABX Free 18-64 YRS 2022-04-03 00:00:00 Completed [facility] Influenza Virus Vaccine Recomb Quad IM, Preserv and ABX Free 18-64 YRS 2022-04-03 00:00:00 Completed [facility] Influenza Virus Vaccine Recomb Quad IM, Preserv and ABX Free 18-64 YRS 2022-04-03 00:00:00 Completed [facility] Influenza Virus Vaccine Recomb Quad IM, Preserv and ABX Free 18-64 YRS 2022-04-03 00:00:00 Completed [facility] Influenza Virus Vaccine Recomb Quad IM, Preserv and ABX Free 18-64 YRS 2022-04-03 00:00:00 Completed [facility] Influenza Virus Vaccine Recomb Quad IM, Preserv and ABX Free 18-64 YRS 2022-04-03 00:00:00 Completed [facility] Influenza Virus Vaccine Recomb Quad IM, Preserv and ABX Free 18-64 YRS 2022-04-03 00:00:00 Completed [facility] Influenza Virus Vaccine Recomb Quad IM, Preserv and ABX Free 18-64 YRS 2022-04-03 00:00:00 Completed [facility] Influenza Virus Vaccine Recomb Quad IM, Preserv and ABX Free 18-64 YRS 2022-04-03 00:00:00 Completed [facility] Influenza Virus Vaccine Recomb Quad IM, Preserv and ABX Free 18-64 YRS 2022-04-03 00:00:00 Completed [facility] Influenza Virus Vaccine Recomb Quad IM, Preserv and ABX Free 18-64 YRS 2022-04-03 00:00:00 Completed [facility] Influenza Virus Vaccine Recomb Quad IM, Preserv and ABX Free 18-64 YRS 2022-04-03 00:00:00 Completed [facility] Influenza Virus Vaccine Recomb Quad IM, Preserv and ABX Free 18-64 YRS 2022-04-03 00:00:00 Completed [facility] Influenza Virus Vaccine Recomb Quad IM, Preserv and ABX Free 18-64 YRS 2022-04-03 00:00:00 Completed [facility] Influenza Virus Vaccine Recomb Quad IM, Preserv and ABX Free 18-64 YRS 2022-04-03 00:00:00 Completed [facility] Influenza Virus Vaccine Recomb Quad IM, Preserv and ABX Free 18-64 YRS 2022-04-03 00:00:00 Completed [facility] Influenza Virus Vaccine Recomb Quad IM, Preserv and ABX Free 18-64 YRS 2022-04-03 00:00:00 Completed [facility] Influenza Virus Vaccine Recomb Quad IM, Preserv and ABX Free 18-64 YRS 2022-04-03 00:00:00 Completed [facility] Influenza Virus Vaccine Recomb Quad IM, Preserv and ABX Free 18-64 YRS 2022-04-03 00:00:00 Completed [facility] Influenza Virus Vaccine Recomb Quad IM, Preserv and ABX Free 18-64 YRS 2022-04-03 00:00:00 Completed [facility] Influenza Virus Vaccine Recomb Quad IM, Preserv and ABX Free 18-64 YRS 2022-04-03 00:00:00 Completed [facility] Influenza Virus Vaccine Recomb Quad IM, Preserv and ABX Free 18-64 YRS 2022-04-03 00:00:00 Completed [facility] Influenza Virus Vaccine Recomb Quad IM, Preserv and ABX Free 18-64 YRS 2022-04-03 00:00:00 Completed [facility] Influenza Virus Vaccine Recomb Quad IM, Preserv and ABX Free 18-64 YRS 2022-04-03 00:00:00 Completed [facility] Influenza Virus Vaccine Recomb Quad IM, Preserv and ABX Free 18-64 YRS 2022-04-03 00:00:00 Completed [facility] Influenza Virus Vaccine Recomb Quad IM, Preserv and ABX Free 18-64 YRS 2022-04-03 00:00:00 Completed [facility] Influenza Virus Vaccine Recomb Quad IM, Preserv and ABX Free 18-64 YRS 2022-04-03 00:00:00 Completed [facility] Influenza Virus Vaccine Recomb Quad IM, Preserv and ABX Free -64 YRS 2022-04-03 00:00:00 Completed [facility] Influenza Virus Vaccine Recomb Quad IM, Preserv and ABX Free 18-64 YRS 2022-04-03 00:00:00 Completed [facility] Influenza Virus Vaccine Recomb Quad IM, Preserv and ABX Free 18-64 YRS 2022-04-03 00:00:00 Completed [facility] Influenza Virus Vaccine Recomb Quad IM, Preserv and ABX Free 18-64 YRS 2022-04-03 00:00:00 Completed [facility] Influenza Virus Vaccine Recomb Quad IM, Preserv and ABX Free 18-64 YRS 2022-04-03 00:00:00 Completed [facility] Influenza Virus Vaccine Recomb Quad IM, Preserv and ABX Free 18-64 YRS 2022-04-03 00:00:00 Completed [facility] Influenza Virus Vaccine Recomb Quad IM, Preserv and ABX Free 18-64 YRS 2022-04-03 00:00:00 Completed [facility] Influenza Virus Vaccine Recomb Quad IM, Preserv and ABX Free 18-64 YRS 2022-04-03 00:00:00 Completed [facility] SARS-COV-2 COVID-19 MODERNA 0.25ML BOOSTER VACCINE 2021-06-04 00:00:00 Completed [facility] SARS-COV-2 COVID-19 MODERNA 0.25ML BOOSTER VACCINE 2021-06-04 00:00:00 Completed [facility] SARS-COV-2 COVID-19 MODERNA 0.25ML BOOSTER VACCINE 2021-06-04 00:00:00 Completed [facility] SARS-COV-2 COVID-19 MODERNA 0.25ML BOOSTER VACCINE 2021-06-04 00:00:00 Completed [facility] SARS-COV-2 COVID-19 MODERNA 0.25ML BOOSTER VACCINE 2021-06-04 00:00:00 Completed [facility] SARS-COV-2 COVID-19 MODERNA 0.25ML BOOSTER VACCINE 2021-06-04 00:00:00 Completed [facility] SARS-COV-2 COVID-19 MODERNA 0.25ML BOOSTER VACCINE 2021-06-04 00:00:00 Completed [facility] SARS-COV-2 COVID-19 MODERNA 0.25ML BOOSTER VACCINE 2021-06-04 00:00:00 Completed [facility] SARS-COV-2 COVID-19 MODERNA 0.25ML BOOSTER VACCINE 2021-06-04 00:00:00 Completed [facility] SARS-COV-2 COVID-19 MODERNA 0.25ML BOOSTER VACCINE 2021-06-04 00:00:00 Completed [facility] SARS-COV-2 COVID-19 MODERNA 0.25ML BOOSTER VACCINE 2021-06-04 00:00:00 Completed [facility] SARS-COV-2 COVID-19 MODERNA 0.25ML BOOSTER VACCINE 2021-06-04 00:00:00 Completed [facility] SARS-COV-2 COVID-19 MODERNA 0.25ML BOOSTER VACCINE 2021-06-04 00:00:00 Completed [facility] SARS-COV-2 COVID-19 MODERNA 0.25ML BOOSTER VACCINE 2021-06-04 00:00:00 Completed [facility] SARS-COV-2 COVID-19 MODERNA 0.25ML BOOSTER VACCINE 2021-06-04 00:00:00 Completed [facility] SARS-COV-2 COVID-19 MODERNA 0.25ML BOOSTER VACCINE 2021-06-04 00:00:00 Completed [facility] SARS-COV-2 COVID-19 MODERNA 0.25ML BOOSTER VACCINE 2021-06-04 00:00:00 Completed [facility] SARS-COV-2 COVID-19 MODERNA 0.25ML BOOSTER VACCINE 2021-06-04 00:00:00 Completed [facility] SARS-COV-2 COVID-19 MODERNA 0.25ML BOOSTER VACCINE 2021-06-04 00:00:00 Completed [facility] SARS-COV-2 COVID-19 MODERNA 0.25ML BOOSTER VACCINE 2021-06-04 00:00:00 Completed [facility] SARS-COV-2 COVID-19 MODERNA 0.25ML BOOSTER VACCINE 2021-06-04 00:00:00 Completed [facility] SARS-COV-2 COVID-19 MODERNA 0.25ML BOOSTER VACCINE 2021-06-04 00:00:00 Completed [facility] SARS-COV-2 COVID-19 MODERNA 0.25ML BOOSTER VACCINE 2021-06-04 00:00:00 Completed [facility] SARS-COV-2 COVID-19 MODERNA 0.25ML BOOSTER VACCINE 2021-06-04 00:00:00 Completed [facility] SARS-COV-2 COVID-19 MODERNA 0.25ML BOOSTER VACCINE 2021-06-04 00:00:00 Completed [facility] SARS-COV-2 COVID-19 MODERNA 0.25ML BOOSTER VACCINE 2021-06-04 00:00:00 Completed [facility] SARS-COV-2 COVID-19 MODERNA 0.25ML BOOSTER VACCINE 2021-06-04 00:00:00 Completed [facility] SARS-COV-2 COVID-19 MODERNA 0.25ML BOOSTER VACCINE 2021-06-04 00:00:00 [facility]pleted [facility] [facility]OV-2 COVID-19 MODERNA 0.25ML BOOSTER VACCINE 2021-06-04 00:00:00 Completed [facility] SARS-COV-2 COVID-19 MODERNA 0.25ML BOOSTER VACCINE 2021-06-04 00:00:00 Completed [facility] SARS-COV-2 COVID-19 MODERNA 0.25ML BOOSTER VACCINE 2021-06-04 00:00:00 Completed [facility] SARS-COV-2 COVID-19 MODERNA 0.25ML BOOSTER VACCINE 2021-06-04 00:00:00 Completed [facility] SARS-COV-2 COVID-19 MODERNA 0.25ML BOOSTER VACCINE 2021-06-04 00:00:00 Completed [facility] SARS-COV-2 COVID-19 MODERNA 0.25ML BOOSTER VACCINE 2021-06-04 00:00:00 Completed [facility] SARS-COV-2 COVID-19 MODERNA 0.25ML BOOSTER VACCINE 2021-06-04 00:00:00 Completed [facility] SARS-COV-2 COVID-19 MODERNA 0.25ML BOOSTER VACCINE 2021-06-04 00:00:00 Completed [facility] SARS-COV-2 COVID-19 MODERNA 0.25ML BOOSTER VACCINE 2021-06-04 00:00:00 Completed [facility] SARS-COV-2 COVID-19 MODERNA 0.25ML BOOSTER VACCINE 2021-06-04 00:00:00 Completed [facility] SARS-COV-2 COVID-19 MODERNA 0.25ML BOOSTER VACCINE 2021-06-04 00:00:00 Completed [facility] SARS-COV-2 COVID-19 MODERNA 0.25ML BOOSTER VACCINE 2021-06-04 00:00:00 Completed [facility] SARS-COV-2 COVID-19 MODERNA 0.25ML BOOSTER VACCINE 2021-06-04 00:00:00 Completed [facility] SARS-COV-2 COVID-19 MODERNA 0.25ML BOOSTER VACCINE 2021-06-04 00:00:00 Completed [facility] SARS-COV-2 COVID-19 MODERNA 0.25ML BOOSTER VACCINE 2021-06-04 00:00:00 Completed [facility] SARS-COV-2 COVID-19 MODERNA 0.25ML BOOSTER VACCINE 2021-06-04 00:00:00 Completed [facility] SARS-COV-2 COVID-19 MODERNA 0.25ML BOOSTER VACCINE 2021-06-04 00:00:00 Completed [facility] SARS-COV-2 COVID-19 MODERNA 0.25ML BOOSTER VACCINE 2021-06-04 00:00:00 Completed [facility] SARS-COV-2 COVID-19 MODERNA 0.25ML BOOSTER VACCINE 2021-06-04 00:00:00 Completed [facility] SARS-COV-2 COVID-19 MODERNA 0.25ML BOOSTER VACCINE 2021-06-04 00:00:00 Completed [facility] SARS-COV-2 COVID-19 MODERNA 0.25ML BOOSTER VACCINE 2021-06-04 00:00:00 Completed [facility] SARS-COV-2 COVID-19 MODERNA 0.25ML BOOSTER VACCINE 2021-06-04 00:00:00 Completed [facility] SARS-COV-2 COVID-19 MODERNA 0.25ML BOOSTER VACCINE 2021-06-04 00:00:00 Completed [facility] SARS-COV-2 COVID-19 MODERNA 0.25ML BOOSTER VACCINE 2021-06-04 00:00:00 Completed [facility] SARS-COV-2 COVID-19 MODERNA 0.25ML BOOSTER VACCINE 2021-06-04 00:00:00 Completed [facility] SARS-COV-2 COVID-19 MODERNA 0.25ML BOOSTER VACCINE 2021-06-04 00:00:00 Completed [facility] SARS-COV-2 COVID-19 MODERNA 0.25ML BOOSTER VACCINE 2021-06-04 00:00:00 Completed [facility] SARS-COV-2 COVID-19 MODERNA 0.25ML BOOSTER VACCINE 2021-06-04 00:00:00 Completed [facility] SARS-COV-2 COVID-19 MODERNA 0.25ML BOOSTER VACCINE 2021-06-04 00:00:00 Completed [facility] SARS-COV-2 COVID-19 MODERNA 0.25ML BOOSTER VACCINE 2021-06-04 00:00:00 Completed [facility] SARS-COV-2 COVID-19 MODERNA 0.25ML BOOSTER VACCINE 2021-06-04 00:00:00 Completed [facility] SARS-COV-2 COVID-19 MODERNA 0.25ML BOOSTER VACCINE 2021-06-04 00:00:00 Completed [facility] SARS-COV-2 COVID-19 MODERNA 0.25ML BOOSTER VACCINE 2021-06-04 00:00:00 Completed [facility] SARS-COV-2 COVID-19 MODERNA 0.25ML BOOSTER VACCINE 2021-06-04 00:00:00 Completed [facility] SARS-COV-2 COVID-19 MODERNA 0.25ML BOOSTER VACCINE 2021-06-04 00:00:00 Completed [facility] SARS-COV-2 COVID-19 MODERNA 0.25ML BOOSTER VACCINE 2021-06-04 00:00:00 Completed [facility] SARS-COV-2 COVID-19 MODERNA 0.25ML BOOSTER VACCINE 2021-06-04 00:00:00 Completed [facility] SARS-COV-2 COVID-19 MODERNA 0.25ML BOOSTER VACCINE 2021-06-04 00:00:00 Completed [facility] SARS-COV-2 COVID-19 MODERNA 0.25ML BOOSTER VACCINE 2021-06-04 00:00:00 Completed [facility] SARS-COV-2 COVID-19 MODERNA 0.25ML BOOSTER VACCINE 2021-06-04 00:00:00 Completed [facility] SARS-COV-2 COVID-19 MODERNA 0.25ML BOOSTER VACCINE 2021-06-04 00:00:00 Completed [facility] SARS-COV-2 COVID-19 MODERNA 0.25ML BOOSTER VACCINE 2021-06-04 00:00:00 Completed [facility] SARS-COV-2 COVID-19 MODERNA 0.25ML BOOSTER VACCINE 2021-06-04 00:00:00 Completed [facility] SARS-COV-2 COVID-19 MODERNA 0.25ML BOOSTER VACCINE 2021-06-04 00:00:00 Completed [facility] SARS-COV-2 COVID-19 MODERNA 0.25ML BOOSTER VACCINE 2021-06-04 00:00:00 Completed [facility] SARS-COV-2 COVID-19 MODERNA 0.25ML BOOSTER VACCINE 2021-06-04 00:00:00 Completed [facility] SARS-COV-2 COVID-19 MODERNA 0.25ML BOOSTER VACCINE 2021-06-04 00:00:00 Completed [facility] SARS-COV-2 COVID-19 MODERNA 0.25ML BOOSTER VACCINE 2021-06-04 00:00:00 Completed [facility] SARS-COV-2 COVID-19 MODERNA 0.25ML BOOSTER VACCINE 2021-06-04 00:00:00 Completed [facility] SARS-COV-2 COVID-19 MODERNA 0.25ML BOOSTER VACCINE 2021-06-04 00:00:00 Completed [facility] SARS-COV-2 COVID-19 MODERNA 0.25ML BOOSTER VACCINE 2021-06-04 00:00:00 Completed [facility] SARS-COV-2 COVID-19 MODERNA 0.25ML BOOSTER VACCINE 2021-06-04 00:00:00 Completed [facility] SARS-COV-2 COVID-19 MODERNA 0.25ML BOOSTER VACCINE 2021-06-04 00:00:00 Completed [facility] SARS-COV-2 COVID-19 MODERNA 0.25ML BOOSTER VACCINE 2021-06-04 00:00:00 Completed [facility] SARS-COV-2 COVID-19 MODERNA 0.25ML BOOSTER VACCINE 2021-06-04 00:00:00 Completed [facility] SARS-COV-2 COVID-19 MODERNA 0.25ML BOOSTER VACCINE 2021-06-04 00:00:00 Completed [facility] SARS-COV-2 COVID-19 MODERNA 0.25ML BOOSTER VACCINE 2021-06-04 00:00:00 Completed [facility] SARS-COV-2 COVID-19 MODERNA 0.25ML BOOSTER VACCINE 2021-06-04 00:00:00 Completed [facility] SARS-COV-2 COVID-19 MODERNA 0.25ML BOOSTER VACCINE 2021-06-04 00:00:00 Completed [facility] SARS-COV-2 COVID-19 MODERNA 0.25ML BOOSTER VACCINE 2021-06-04 00:00:00 Completed [facility] SARS-COV-2 COVID-19 MODERNA 0.25ML BOOSTER VACCINE 2021-06-04 00:00:00 Completed [facility] SARS-COV-2 COVID-19 MODERNA 0.25ML BOOSTER VACCINE 2021-06-04 00:00:00 Completed [facility] SARS-COV-2 COVID-19 MODERNA 0.25ML BOOSTER VACCINE 2021-06-04 00:00:00 Completed [facility] SARS-COV-2 COVID-19 MODERNA 0.25ML BOOSTER VACCINE 2021-06-04 00:00:00 Completed [facility] SARS-COV-2 COVID-19 MODERNA 0.25ML BOOSTER VACCINE 2021-06-04 00:00:00 Completed [facility] SARS-COV-2 COVID-19 MODERNA 0.25ML BOOSTER VACCINE 2021-06-04 00:00:00 Completed [facility] SARS-COV-2 COVID-19 MODERNA 0.25ML BOOSTER VACCINE 2021-06-04 00:00:00 Completed [facility] SARS-COV-2 COVID-19 MODERNA 0.25ML BOOSTER VACCINE 2021-06-04 00:00:00 Completed [facility] SARS-COV-2 COVID-19 MODERNA 0.25ML BOOSTER VACCINE 2021-06-04 00:00:00 Completed [facility] SARS-COV-2 COVID-19 MODERNA 0.25ML BOOSTER VACCINE 2021-06-04 00:00:00 Completed [facility] SARS-COV-2 COVID-19 MODERNA 0.25ML BOOSTER VACCINE 2021-06-04 00:00:00 Completed [facility] SARS-COV-2 COVID-19 MODERNA 0.25ML BOOSTER VACCINE 2021-06-04 00:00:00 Completed [facility] SARS-COV-2 COVID-19 MODERNA 0.25ML BOOSTER VACCINE 2021-06-04 00:00:00 Completed [facility] SARS-COV-2 COVID-19 MODERNA 0.25ML BOOSTER VACCINE 2021-06-04 00:00:00 Completed [facility] SARS-COV-2 COVID-19 MODERNA 0.25ML BOOSTER VACCINE 2021-06-04 00:00:00 Completed [facility] SARS-COV-2 COVID-19 MODERNA 0.25ML BOOSTER VACCINE 2021-06-04 00:00:00 Completed [facility] SARS-COV-2 COVID-19 MODERNA 0.25ML BOOSTER VACCINE 2021-06-04 00:00:00 Completed [facility] SARS-COV-2 COVID-19 MODERNA 0.25ML BOOSTER VACCINE 2021-06-04 00:00:00 Completed [facility] SARS-COV-2 COVID-19 MODERNA 0.25ML BOOSTER VACCINE 2021-06-04 00:00:00 Completed [facility] SARS-COV-2 COVID-19 MODERNA 0.25ML BOOSTER VACCINE 2021-06-04 00:00:00 Completed [facility] SARS-COV-2 COVID-19 MODERNA 0.25ML BOOSTER VACCINE 2021-06-04 00:00:00 Completed [facility] SARS-COV-2 COVID-19 MODERNA 0.25ML BOOSTER VACCINE 2021-06-04 00:00:00 Completed [facility] SARS-COV-2 COVID-19 MODERNA 0.25ML BOOSTER VACCINE 2021-06-04 00:00:00 Completed [facility] SARS-COV-2 COVID-19 MODERNA 0.25ML BOOSTER VACCINE 2021-06-04 00:00:00 Completed [facility] SARS-COV-2 COVID-19 MODERNA 0.25ML BOOSTER VACCINE 2021-06-04 00:00:00 Completed [facility] SARS-COV-2 COVID-19 MODERNA 0.25ML BOOSTER VACCINE 2021-06-04 00:00:00 Completed [facility] SARS-COV-2 COVID-19 MODERNA 0.25ML BOOSTER VACCINE 2021-06-04 00:00:00 Completed [facility] SARS-COV-2 COVID-19 MODERNA 0.25ML BOOSTER VACCINE 2021-06-04 00:00:00 Completed [facility] SARS-COV-2 COVID-19 MODERNA 0.25ML BOOSTER VACCINE 2021-06-04 00:00:00 Completed [facility] SARS-COV-2 COVID-19 MODERNA 0.25ML BOOSTER VACCINE 2021-06-04 00:00:00 Completed [facility] SARS-COV-2 COVID-19 MODERNA 0.25ML BOOSTER VACCINE 2021-06-04 00:00:00 Completed [facility] SARS-COV-2 COVID-19 MODERNA 0.25ML BOOSTER VACCINE 2021-06-04 00:00:00 Completed [facility] SARS-COV-2 COVID-19 MODERNA 0.25ML BOOSTER VACCINE 2021-06-04 00:00:00 Completed [facility] SARS-COV-2 COVID-19 MODERNA 0.25ML BOOSTER VACCINE 2021-06-04 00:00:00 Completed [facility] SARS-COV-2 COVID-19 MODERNA 0.25ML BOOSTER VACCINE 2021-06-04 00:00:00 Completed [facility] SARS-COV-2 COVID-19 MODERNA 0.25ML BOOSTER VACCINE 2021-06-04 00:00:00 Completed [facility] SARS-COV-2 COVID-19 MODERNA 0.25ML BOOSTER VACCINE 2021-06-04 00:00:00 Completed [facility] SARS-COV-2 COVID-19 MODERNA 0.25ML BOOSTER VACCINE 2021-06-04 00:00:00 Completed [facility] SARS-COV-2 COVID-19 MODERNA 0.25ML BOOSTER VACCINE 2021-06-04 00:00:00 Completed [facility] SARS-COV-2 COVID-19 MODERNA 0.25ML BOOSTER VACCINE 2021-06-04 00:00:00 Completed [facility] SARS-COV-2 COVID-19 MODERNA 0.25ML BOOSTER VACCINE 2021-06-04 00:00:00 Completed [facility] SARS-COV-2 COVID-19 MODERNA 0.25ML BOOSTER VACCINE 2021-06-04 00:00:00 Completed [facility] SARS-COV-2 COVID-19 MODERNA 0.25ML BOOSTER VACCINE 2021-06-04 00:00:00 Completed [facility] SARS-COV-2 COVID-19 MODERNA 0.25ML BOOSTER VACCINE 2021-06-04 00:00:00 Completed [facility] SARS-COV-2 COVID-19 MODERNA 0.25ML BOOSTER VACCINE 2021-06-04 00:00:00 Completed [facility] SARS-COV-2 COVID-19 MODERNA 0.25ML BOOSTER VACCINE 2021-06-04 00:00:00 Completed [facility] SARS-COV-2 COVID-19 MODERNA 0.25ML BOOSTER VACCINE 2021-06-04 00:00:00 Completed [facility] SARS-COV-2 COVID-19 MODERNA 0.25ML BOOSTER VACCINE 2021-06-04 00:00:00 Completed [facility] SARS-COV-2 COVID-19 MODERNA 0.25ML BOOSTER VACCINE 2021-06-04 00:00:00 Completed [facility] SARS-COV-2 COVID-19 MODERNA 0.25ML BOOSTER VACCINE 2021-06-04 00:00:00 Completed [facility] SARS-COV-2 COVID-19 MODERNA 0.25ML BOOSTER VACCINE 2021-06-04 00:00:00 Completed [facility] SARS-COV-2 COVID-19 MODERNA 0.25ML BOOSTER VACCINE 2021-06-04 00:00:00 Completed [facility] SARS-COV-2 COVID-19 MODERNA 0.25ML BOOSTER VACCINE 2021-06-04 00:00:00 Completed [facility] SARS-COV-2 COVID-19 MODERNA 0.25ML BOOSTER VACCINE 2021-06-04 00:00:00 Completed [facility] SARS-COV-2 COVID-19 MODERNA 0.25ML BOOSTER VACCINE 2021-06-04 00:00:00 Completed [facility] SARS-COV-2 COVID-19 MODERNA 0.25ML BOOSTER VACCINE 2021-06-04 00:00:00 Completed [facility] SARS-COV-2 COVID-19 MODERNA 0.25ML BOOSTER VACCINE 2021-06-04 00:00:00 Completed [facility] SARS-COV-2 COVID-19 MODERNA 0.25ML BOOSTER VACCINE 2021-06-04 00:00:00 Completed [facility] SARS-COV-2 COVID-19 MODERNA 0.25ML BOOSTER VACCINE 2021-06-04 00:00:00 Completed [facility] SARS-COV-2 COVID-19 MODERNA 0.25ML BOOSTER VACCINE 2021-06-04 00:00:00 Completed [facility] SARS-COV-2 COVID-19 MODERNA 0.25ML BOOSTER VACCINE 2021-06-04 00:00:00 Completed [facility] SARS-COV-2 COVID-19 MODERNA 0.25ML BOOSTER VACCINE 2021-06-04 00:00:00 Completed [facility] SARS-COV-2 COVID-19 MODERNA VACCINE 2020-09-06 00:00:00 Completed [facility] SARS-COV-2 COVID-19 MODERNA VACCINE 2020-09-06 00:00:00 Completed [facility] SARS-COV-2 COVID-19 MODERNA VACCINE 2020-09-06 00:00:00 Completed [facility] SARS-COV-2 COVID-19 MODERNA VACCINE 2020-09-06 00:00:00 Completed [facility] SARS-COV-2 COVID-19 MODERNA 12+ YRS VACCINE 2020-09-06 00:00:00 Completed [facility] SARS-COV-2 COVID-19 MODERNA 12+ YRS VACCINE 2020-09-06 00:00:00 Completed [facility] SARS-COV-2 COVID-19 MODERNA 12+ YRS VACCINE 2020-09-06 00:00:00 Completed [facility] SARS-COV-2 COVID-19 MODERNA 12+ YRS VACCINE 2020-09-06 00:00:00 Completed [facility] SARS-COV-2 COVID-19 MODERNA 12+ YRS VACCINE 2020-09-06 00:00:00 Completed [facility] SARS-COV-2 COVID-19 MODERNA 12+ YRS VACCINE 2020-09-06 00:00:00 Completed [facility] SARS-COV-2 COVID-19 MODERNA 12+ YRS VACCINE 2020-09-06 00:00:00 Completed [facility] SARS-COV-2 COVID-19 MODERNA 12+ YRS VACCINE 2020-09-06 00:00:00 Completed [facility] SARS-COV-2 COVID-19 MODERNA 12+ YRS VACCINE 2020-09-06 00:00:00 Completed [facility] SARS-COV-2 COVID-19 MODERNA 12+ YRS VACCINE 2020-09-06 00:00:00 Completed [facility] SARS-COV-2 COVID-19 MODERNA 12+ YRS VACCINE 2020-09-06 00:00:00 Completed [facility] SARS-COV-2 COVID-19 MODERNA 12+ YRS VACCINE 2020-09-06 00:00:00 Completed [facility] SARS-COV-2 COVID-19 MODERNA 12+ YRS VACCINE 2020-09-06 00:00:00 Completed [facility] SARS-COV-2 COVID-19 MODERNA 12+ YRS VACCINE 2020-09-06 00:00:00 Completed [facility] SARS-COV-2 COVID-19 MODERNA 12+ YRS VACCINE 2020-09-06 00:00:00 Completed [facility] SARS-COV-2 COVID-19 MODERNA 12+ YRS VACCINE 2020-09-06 00:00:00 Completed [facility] SARS-COV-2 COVID-19 MODERNA 12+ YRS VACCINE 2020-09-06 00:00:00 Completed [facility] SARS-COV-2 COVID-19 MODERNA 12+ YRS VACCINE 2020-09-06 00:00:00 Completed [facility] SARS-COV-2 COVID-19 MODERNA 12+ YRS VACCINE 2020-09-06 00:00:00 Completed [facility] SARS-COV-2 COVID-19 MODERNA 12+ YRS VACCINE 2020-09-06 00:00:00 Completed [facility] SARS-COV-2 COVID-19 MODERNA 12+ YRS VACCINE 2020-09-06 00:00:00 Completed [facility] SARS-COV-2 COVID-19 MODERNA 12+ YRS VACCINE 2020-09-06 00:00:00 Completed [facility] SARS-COV-2 COVID-19 MODERNA 12+ YRS VACCINE 2020-09-06 00:00:00 Completed [facility] SARS-COV-2 COVID-19 MODERNA 12+ YRS VACCINE 2020-09-06 00:00:00 Completed [facility] SARS-COV-2 COVID-19 MODERNA 12+ YRS VACCINE 2020-09-06 00:00:00 Completed [facility] SARS-COV-2 COVID-19 MODERNA 12+ YRS VACCINE 2020-09-06 00:00:00 Completed [facility] SARS-COV-2 COVID-19 MODERNA 12+ YRS VACCINE 2020-09-06 00:00:00 Completed [facility] SARS-COV-2 COVID-19 MODERNA 12+ YRS VACCINE 2020-09-06 00:00:00 Completed [facility] SARS-COV-2 COVID-19 MODERNA 12+ YRS VACCINE 2020-09-06 00:00:00 Completed [facility] SARS-COV-2 COVID-19 MODERNA 12+ YRS VACCINE 2020-09-06 00:00:00 Completed [facility] SARS-COV-2 COVID-19 MODERNA 12+ YRS VACCINE 2020-09-06 00:00:00 Completed [facility] SARS-COV-2 COVID-19 MODERNA 12+ YRS VACCINE 2020-09-06 00:00:00 Completed [facility] SARS-COV-2 COVID-19 MODERNA 12+ YRS VACCINE 2020-09-06 00:00:00 Completed [facility] SARS-COV-2 COVID-19 MODERNA 12+ YRS VACCINE 2020-09-06 00:00:00 Completed [facility] SARS-COV-2 COVID-19 MODERNA 12+ YRS VACCINE 2020-09-06 00:00:00 Completed [facility] SARS-COV-2 COVID-19 MODERNA 12+ YRS VACCINE 2020-09-06 00:00:00 Completed [facility] SARS-COV-2 COVID-19 MODERNA 12+ YRS VACCINE 2020-09-06 00:00:00 Completed [facility] SARS-COV-2 COVID-19 MODERNA 12+ YRS VACCINE 2020-09-06 00:00:00 Completed [facility] SARS-COV-2 COVID-19 MODERNA 12+ YRS VACCINE 2020-09-06 00:00:00 Completed [facility] SARS-COV-2 COVID-19 MODERNA 12+ YRS VACCINE 2020-09-06 00:00:00 Completed [facility] SARS-COV-2 COVID-19 MODERNA 12+ YRS VACCINE 2020-09-06 00:00:00 Completed [facility] SARS-COV-2 COVID-19 MODERNA 12+ YRS VACCINE 2020-09-06 00:00:00 Completed [facility] SARS-COV-2 COVID-19 MODERNA 12+ YRS VACCINE 2020-09-06 00:00:00 Completed [facility] SARS-COV-2 COVID-19 MODERNA 12+ YRS VACCINE 2020-09-06 00:00:00 Completed [facility] SARS-COV-2 COVID-19 MODERNA 12+ YRS VACCINE 2020-09-06 00:00:00 Completed [facility] SARS-COV-2 COVID-19 MODERNA 12+ YRS VACCINE 2020-09-06 00:00:00 Completed [facility] SARS-COV-2 COVID-19 MODERNA 12+ YRS VACCINE 2020-09-06 00:00:00 Completed [facility] SARS-COV-2 COVID-19 MODERNA 12+ YRS VACCINE 2020-09-06 00:00:00 Completed [facility] SARS-COV-2 COVID-19 MODERNA 12+ YRS VACCINE 2020-09-06 00:00:00 Completed [facility] SARS-COV-2 COVID-19 MODERNA 12+ YRS VACCINE 2020-09-06 00:00:00 Completed [facility] SARS-COV-2 COVID-19 MODERNA 12+ YRS VACCINE 2020-09-06 00:00:00 Completed [facility] SARS-COV-2 COVID-19 MODERNA 12+ YRS VACCINE 2020-09-06 00:00:00 Completed [facility] SARS-COV-2 COVID-19 MODERNA 12+ YRS VACCINE 2020-09-06 00:00:00 Completed [facility] SARS-COV-2 COVID-19 MODERNA 12+ YRS VACCINE 2020-09-06 00:00:00 Completed [facility] SARS-COV-2 COVID-19 MODERNA 12+ YRS VACCINE 2020-09-06 00:00:00 Completed [facility] SARS-COV-2 COVID-19 MODERNA 12+ YRS VACCINE 2020-09-06 00:00:00 Completed [facility] SARS-COV-2 COVID-19 MODERNA 12+ YRS VACCINE 2020-09-06 00:00:00 Completed [facility] SARS-COV-2 COVID-19 MODERNA 12+ YRS VACCINE 2020-09-06 00:00:00 Completed [facility] SARS-COV-2 COVID-19 MODERNA 12+ YRS VACCINE 2020-09-06 00:00:00 Completed [facility] SARS-COV-2 COVID-19 MODERNA 12+ YRS VACCINE 2020-09-06 00:00:00 Completed [facility] SARS-COV-2 COVID-19 MODERNA 12+ YRS VACCINE 2020-09-06 00:00:00 Completed [facility] SARS-COV-2 COVID-19 MODERNA 12+ YRS VACCINE 2020-09-06 00:00:00 Completed [facility] SARS-COV-2 COVID-19 MODERNA 12+ YRS VACCINE 2020-09-06 00:00:00 Completed [facility] SARS-COV-2 COVID-19 MODERNA 12+ YRS VACCINE 2020-09-06 00:00:00 Completed [facility] SARS-COV-2 COVID-19 MODERNA 12+ YRS VACCINE 2020-09-06 00:00:00 Completed [facility] SARS-COV-2 COVID-19 MODERNA 12+ YRS VACCINE 2020-09-06 00:00:00 Completed [facility] SARS-COV-2 COVID-19 MODERNA 12+ YRS VACCINE 2020-09-06 00:00:00 Completed [facility] SARS-COV-2 COVID-19 MODERNA 12+ YRS VACCINE 2020-09-06 00:00:00 Completed [facility] SARS-COV-2 COVID-19 MODERNA 12+ YRS VACCINE 2020-09-06 00:00:00 Completed [facility] SARS-COV-2 COVID-19 MODERNA 12+ YRS VACCINE 2020-09-06 00:00:00 Completed [facility] SARS-COV-2 COVID-19 MODERNA 12+ YRS VACCINE 2020-09-06 00:00:00 Completed [facility] SARS-COV-2 COVID-19 MODERNA 12+ YRS VACCINE 2020-09-06 00:00:00 Completed [facility] SARS-COV-2 COVID-19 MODERNA 12+ YRS VACCINE 2020-09-06 00:00:00 Completed [facility] SARS-COV-2 COVID-19 MODERNA 12+ YRS VACCINE 2020-09-06 00:00:00 Completed [facility] SARS-COV-2 COVID-19 MODERNA 12+ YRS VACCINE 2020-09-06 00:00:00 Completed [facility] SARS-COV-2 COVID-19 MODERNA 12+ YRS VACCINE 2020-09-06 00:00:00 Completed [facility] SARS-COV-2 COVID-19 MODERNA 12+ YRS VACCINE 2020-09-06 00:00:00 Completed [facility] SARS-COV-2 COVID-19 MODERNA 12+ YRS VACCINE 2020-09-06 00:00:00 Completed [facility] SARS-COV-2 COVID-19 MODERNA 12+ YRS VACCINE 2020-09-06 00:00:00 Completed [facility] SARS-COV-2 COVID-19 MODERNA 12+ YRS VACCINE 2020-09-06 00:00:00 Completed [facility] SARS-COV-2 COVID-19 MODERNA 12+ YRS VACCINE 2020-09-06 00:00:00 Completed [facility] SARS-COV-2 COVID-19 MODERNA 12+ YRS VACCINE 2020-09-06 00:00:00 Completed [facility] SARS-COV-2 COVID-19 MODERNA 12+ YRS VACCINE 2020-09-06 00:00:00 Completed [facility] SARS-COV-2 COVID-19 MODERNA 12+ YRS VACCINE 2020-09-06 00:00:00 Completed [facility] SARS-COV-2 COVID-19 MODERNA 12+ YRS VACCINE 2020-09-06 00:00:00 Completed [facility] SARS-COV-2 COVID-19 MODERNA 12+ YRS VACCINE 2020-09-06 00:00:00 Completed [facility] SARS-COV-2 COVID-19 MODERNA 12+ YRS VACCINE 2020-09-06 00:00:00 Completed [facility] SARS-COV-2 COVID-19 MODERNA 12+ YRS VACCINE 2020-09-06 00:00:00 Completed [facility] SARS-COV-2 COVID-19 MODERNA 12+ YRS VACCINE 2020-09-06 00:00:00 Completed [facility] SARS-COV-2 COVID-19 MODERNA 12+ YRS VACCINE 2020-09-06 00:00:00 Completed [facility] SARS-COV-2 COVID-19 MODERNA 12+ YRS VACCINE 2020-09-06 00:00:00 Completed [facility] SARS-COV-2 COVID-19 MODERNA 12+ YRS VACCINE 2020-09-06 00:00:00 Completed [facility] SARS-COV-2 COVID-19 MODERNA 12+ YRS VACCINE 2020-09-06 00:00:00 Completed [facility] SARS-COV-2 COVID-19 MODERNA 12+ YRS VACCINE 2020-09-06 00:00:00 Completed [facility] SARS-COV-2 COVID-19 MODERNA 12+ YRS VACCINE 2020-09-06 00:00:00 Completed [facility] SARS-COV-2 COVID-19 MODERNA 12+ YRS VACCINE 2020-09-06 00:00:00 Completed [facility] SARS-COV-2 COVID-19 MODERNA 12+ YRS VACCINE 2020-09-06 00:00:00 Completed [facility] SARS-COV-2 COVID-19 MODERNA 12+ YRS VACCINE 2020-09-06 00:00:00 Completed [facility] SARS-COV-2 COVID-19 MODERNA 12+ YRS VACCINE 2020-09-06 00:00:00 Completed [facility] SARS-COV-2 COVID-19 MODERNA 12+ YRS VACCINE 2020-09-06 00:00:00 Completed [facility] SARS-COV-2 COVID-19 MODERNA 12+ YRS VACCINE 2020-09-06 00:00:00 Completed [facility] SARS-COV-2 COVID-19 MODERNA 12+ YRS VACCINE 2020-09-06 00:00:00 Completed [facility] SARS-COV-2 COVID-19 MODERNA 12+ YRS VACCINE 2020-09-06 00:00:00 Completed [facility] SARS-COV-2 COVID-19 MODERNA 12+ YRS VACCINE 2020-09-06 00:00:00 Completed [facility] SARS-COV-2 COVID-19 MODERNA 12+ YRS VACCINE 2020-09-06 00:00:00 Completed [facility] SARS-COV-2 COVID-19 MODERNA 12+ YRS VACCINE 2020-09-06 00:00:00 Completed [facility] SARS-COV-2 COVID-19 MODERNA 12+ YRS VACCINE 2020-09-06 00:00:00 Completed [facility] SARS-COV-2 COVID-19 MODERNA 12+ YRS VACCINE 2020-09-06 00:00:00 Completed [facility] SARS-COV-2 COVID-19 MODERNA 12+ YRS VACCINE 2020-09-06 00:00:00 Completed [facility] SARS-COV-2 COVID-19 MODERNA 12+ YRS VACCINE 2020-09-06 00:00:00 Completed [facility] SARS-COV-2 COVID-19 MODERNA 12+ YRS VACCINE 2020-09-06 00:00:00 Completed [facility] SARS-COV-2 COVID-19 MODERNA 12+ YRS VACCINE 2020-09-06 00:00:00 Completed [facility] SARS-COV-2 COVID-19 MODERNA 12+ YRS VACCINE 2020-09-06 00:00:00 Completed [facility] SARS-COV-2 COVID-19 MODERNA 12+ YRS VACCINE 2020-09-06 00:00:00 Completed [facility] SARS-COV-2 COVID-19 MODERNA 12+ YRS VACCINE 2020-09-06 00:00:00 Completed [facility] SARS-COV-2 COVID-19 MODERNA 12+ YRS VACCINE 2020-09-06 00:00:00 Completed [facility] SARS-COV-2 COVID-19 MODERNA 12+ YRS VACCINE 2020-09-06 00:00:00 Completed [facility] SARS-COV-2 COVID-19 MODERNA 12+ YRS VACCINE 2020-09-06 00:00:00 Completed [facility] SARS-COV-2 COVID-19 MODERNA 12+ YRS VACCINE 2020-09-06 00:00:00 Completed [facility] SARS-COV-2 COVID-19 MODERNA 12+ YRS VACCINE 2020-09-06 00:00:00 Completed [facility] SARS-COV-2 COVID-19 MODERNA 12+ YRS VACCINE 2020-09-06 00:00:00 Completed [facility] SARS-COV-2 COVID-19 MODERNA 12+ YRS VACCINE 2020-09-06 00:00:00 Completed [facility] SARS-COV-2 COVID-19 MODERNA 12+ YRS VACCINE 2020-09-06 00:00:00 Completed [facility] SARS-COV-2 COVID-19 MODERNA 12+ YRS VACCINE 2020-09-06 00:00:00 Completed [facility] SARS-COV-2 COVID-19 MODERNA 12+ YRS VACCINE 2020-09-06 00:00:00 Completed [facility] SARS-COV-2 COVID-19 MODERNA 12+ YRS VACCINE 2020-09-06 00:00:00 Completed [facility] SARS-COV-2 COVID-19 MODERNA 12+ YRS VACCINE 2020-09-06 00:00:00 Completed [facility] SARS-COV-2 COVID-19 MODERNA 12+ YRS VACCINE 2020-09-06 00:00:00 Completed [facility] SARS-COV-2 COVID-19 MODERNA 12+ YRS VACCINE 2020-09-06 00:00:00 Completed [facility] SARS-COV-2 COVID-19 MODERNA 12+ YRS VACCINE 2020-09-06 00:00:00 Completed [facility] SARS-COV-2 COVID-19 MODERNA 12+ YRS VACCINE 2020-09-06 00:00:00 Completed [facility] SARS-COV-2 COVID-19 MODERNA 12+ YRS VACCINE 2020-09-06 00:00:00 Completed [facility] SARS-COV-2 COVID-19 MODERNA 12+ YRS VACCINE 2020-09-06 00:00:00 Completed [facility] SARS-COV-2 COVID-19 MODERNA 12+ YRS VACCINE 2020-09-06 00:00:00 Completed [facility] SARS-COV-2 COVID-19 MODERNA 12+ YRS VACCINE 2020-09-06 00:00:00 Completed [facility] SARS-COV-2 COVID-19 MODERNA 12+ YRS VACCINE 2020-09-06 00:00:00 Completed [facility] SARS-COV-2 COVID-19 MODERNA 12+ YRS VACCINE 2020-09-06 00:00:00 Completed [facility] SARS-COV-2 COVID-19 MODERNA 12+ YRS VACCINE 2020-09-06 00:00:00 Completed [facility] SARS-COV-2 COVID-19 MODERNA 12+ YRS VACCINE 2020-09-06 00:00:00 Completed [facility] SARS-COV-2 COVID-19 MODERNA 12+ YRS VACCINE 2020-09-06 00:00:00 Completed [facility] SARS-COV-2 COVID-19 MODERNA 12+ YRS VACCINE 2020-09-06 00:00:00 Completed [facility] SARS-COV-2 COVID-19 MODERNA 12+ YRS VACCINE 2020-09-06 00:00:00 Completed [facility] SARS-COV-2 COVID-19 MODERNA 12+ YRS VACCINE 2020-09-06 00:00:00 Completed [facility] SARS-COV-2 COVID-19 MODERNA 12+ YRS VACCINE 2020-09-06 00:00:00 Completed [facility] SARS-COV-2 COVID-19 MODERNA 12+ YRS VACCINE 2020-09-06 00:00:00 Completed [facility] SARS-COV-2 COVID-19 MODERNA 12+ YRS VACCINE 2020-09-06 00:00:00 Completed [facility] SARS-COV-2 COVID-19 MODERNA VACCINE 2020-08-09 00:00:00 Completed [facility] SARS-COV-2 COVID-19 MODERNA VACCINE 2020-08-09 00:00:00 Completed [facility] SARS-COV-2 COVID-19 MODERNA VACCINE 2020-08-09 00:00:00 Completed [facility] SARS-COV-2 COVID-19 MODERNA VACCINE 2020-08-09 00:00:00 Completed [facility] SARS-COV-2 COVID-19 MODERNA 12+ YRS VACCINE 2020-08-09 00:00:00 Completed [facility] SARS-COV-2 COVID-19 MODERNA 12+ YRS VACCINE 2020-08-09 00:00:00 Completed [facility] SARS-COV-2 COVID-19 MODERNA 12+ YRS VACCINE 2020-08-09 00:00:00 Completed [facility] SARS-COV-2 COVID-19 MODERNA 12+ YRS VACCINE 2020-08-09 00:00:00 Completed [facility] SARS-COV-2 COVID-19 MODERNA 12+ YRS VACCINE 2020-08-09 00:00:00 Completed [facility] SARS-COV-2 COVID-19 MODERNA 12+ YRS VACCINE 2020-08-09 00:00:00 Completed [facility] SARS-COV-2 COVID-19 MODERNA 12+ YRS VACCINE 2020-08-09 00:00:00 Completed [facility] SARS-COV-2 COVID-19 MODERNA 12+ YRS VACCINE 2020-08-09 00:00:00 Completed [facility] SARS-COV-2 COVID-19 MODERNA 12+ YRS VACCINE 2020-08-09 00:00:00 Completed [facility] SARS-COV-2 COVID-19 MODERNA 12+ YRS VACCINE 2020-08-09 00:00:00 Completed [facility] SARS-COV-2 COVID-19 MODERNA 12+ YRS VACCINE 2020-08-09 00:00:00 Completed [facility] SARS-COV-2 COVID-19 MODERNA 12+ YRS VACCINE 2020-08-09 00:00:00 Completed [facility] SARS-COV-2 COVID-19 MODERNA 12+ YRS VACCINE 2020-08-09 00:00:00 Completed [facility] SARS-COV-2 COVID-19 MODERNA 12+ YRS VACCINE 2020-08-09 00:00:00 Completed [facility] SARS-COV-2 COVID-19 MODERNA 12+ YRS VACCINE 2020-08-09 00:00:00 Completed [facility] SARS-COV-2 COVID-19 MODERNA 12+ YRS VACCINE 2020-08-09 00:00:00 Completed [facility] SARS-COV-2 COVID-19 MODERNA 12+ YRS VACCINE 2020-08-09 00:00:00 Completed [facility] SARS-COV-2 COVID-19 MODERNA 12+ YRS VACCINE 2020-08-09 00:00:00 Completed [facility] SARS-COV-2 COVID-19 MODERNA 12+ YRS VACCINE 2020-08-09 00:00:00 Completed [facility] SARS-COV-2 COVID-19 MODERNA 12+ YRS VACCINE 2020-08-09 00:00:00 Completed [facility] SARS-COV-2 COVID-19 MODERNA 12+ YRS VACCINE 2020-08-09 00:00:00 Completed [facility] SARS-COV-2 COVID-19 MODERNA 12+ YRS VACCINE 2020-08-09 00:00:00 Completed [facility] SARS-COV-2 COVID-19 MODERNA 12+ YRS VACCINE 2020-08-09 00:00:00 Completed [facility] SARS-COV-2 COVID-19 MODERNA 12+ YRS VACCINE 2020-08-09 00:00:00 Completed [facility] SARS-COV-2 COVID-19 MODERNA 12+ YRS VACCINE 2020-08-09 00:00:00 Completed [facility] SARS-COV-2 COVID-19 MODERNA 12+ YRS VACCINE 2020-08-09 00:00:00 Completed [facility] SARS-COV-2 COVID-19 MODERNA 12+ YRS VACCINE 2020-08-09 00:00:00 Completed [facility] SARS-COV-2 COVID-19 MODERNA 12+ YRS VACCINE 2020-08-09 00:00:00 Completed [facility] SARS-COV-2 COVID-19 MODERNA 12+ YRS VACCINE 2020-08-09 00:00:00 Completed [facility] SARS-COV-2 COVID-19 MODERNA 12+ YRS VACCINE 2020-08-09 00:00:00 Completed [facility] SARS-COV-2 COVID-19 MODERNA 12+ YRS VACCINE 2020-08-09 00:00:00 Completed [facility] SARS-COV-2 COVID-19 MODERNA 12+ YRS VACCINE 2020-08-09 00:00:00 Completed [facility] SARS-COV-2 COVID-19 MODERNA 12+ YRS VACCINE 2020-08-09 00:00:00 Completed [facility] SARS-COV-2 COVID-19 MODERNA 12+ YRS VACCINE 2020-08-09 00:00:00 Completed [facility] SARS-COV-2 COVID-19 MODERNA 12+ YRS VACCINE 2020-08-09 00:00:00 Completed [facility] SARS-COV-2 COVID-19 MODERNA 12+ YRS VACCINE 2020-08-09 00:00:00 Completed [facility] SARS-COV-2 COVID-19 MODERNA 12+ YRS VACCINE 2020-08-09 00:00:00 Completed [facility] SARS-COV-2 COVID-19 MODERNA 12+ YRS VACCINE 2020-08-09 00:00:00 Completed [facility] SARS-COV-2 COVID-19 MODERNA 12+ YRS VACCINE 2020-08-09 00:00:00 Completed [facility] SARS-COV-2 COVID-19 MODERNA 12+ YRS VACCINE 2020-08-09 00:00:00 Completed [facility] SARS-COV-2 COVID-19 MODERNA 12+ YRS VACCINE 2020-08-09 00:00:00 Completed [facility] SARS-COV-2 COVID-19 MODERNA 12+ YRS VACCINE 2020-08-09 00:00:00 Completed [facility] SARS-COV-2 COVID-19 MODERNA 12+ YRS VACCINE 2020-08-09 00:00:00 Completed [facility] SARS-COV-2 COVID-19 MODERNA 12+ YRS VACCINE 2020-08-09 00:00:00 Completed [facility] SARS-COV-2 COVID-19 MODERNA 12+ YRS VACCINE 2020-08-09 00:00:00 Completed [facility] SARS-COV-2 COVID-19 MODERNA 12+ YRS VACCINE 2020-08-09 00:00:00 Completed [facility] SARS-COV-2 COVID-19 MODERNA 12+ YRS VACCINE 2020-08-09 00:00:00 Completed [facility] SARS-COV-2 COVID-19 MODERNA 12+ YRS VACCINE 2020-08-09 00:00:00 Completed [facility] SARS-COV-2 COVID-19 MODERNA 12+ YRS VACCINE 2020-08-09 00:00:00 Completed [facility] SARS-COV-2 COVID-19 MODERNA 12+ YRS VACCINE 2020-08-09 00:00:00 Completed [facility] SARS-COV-2 COVID-19 MODERNA 12+ YRS VACCINE 2020-08-09 00:00:00 Completed [facility] SARS-COV-2 COVID-19 MODERNA 12+ YRS VACCINE 2020-08-09 00:00:00 Completed [facility] SARS-COV-2 COVID-19 MODERNA 12+ YRS VACCINE 2020-08-09 00:00:00 Completed [facility] SARS-COV-2 COVID-19 MODERNA 12+ YRS VACCINE 2020-08-09 00:00:00 Completed [facility] SARS-COV-2 COVID-19 MODERNA 12+ YRS VACCINE 2020-08-09 00:00:00 Completed [facility] SARS-COV-2 COVID-19 MODERNA 12+ YRS VACCINE 2020-08-09 00:00:00 Completed [facility] SARS-COV-2 COVID-19 MODERNA 12+ YRS VACCINE 2020-08-09 00:00:00 Completed [facility] SARS-COV-2 COVID-19 MODERNA 12+ YRS VACCINE 2020-08-09 00:00:00 Completed [facility] SARS-COV-2 COVID-19 MODERNA 12+ YRS VACCINE 2020-08-09 00:00:00 Completed [facility] SARS-COV-2 COVID-19 MODERNA 12+ YRS VACCINE 2020-08-09 00:00:00 Completed [facility] SARS-COV-2 COVID-19 MODERNA 12+ YRS VACCINE 2020-08-09 00:00:00 Completed [facility] SARS-COV-2 COVID-19 MODERNA 12+ YRS VACCINE 2020-08-09 00:00:00 Completed [facility] SARS-COV-2 COVID-19 MODERNA 12+ YRS VACCINE 2020-08-09 00:00:00 Completed [facility] SARS-COV-2 COVID-19 MODERNA 12+ YRS VACCINE 2020-08-09 00:00:00 Completed [facility] SARS-COV-2 COVID-19 MODERNA 12+ YRS VACCINE 2020-08-09 00:00:00 Completed [facility] SARS-COV-2 COVID-19 MODERNA 12+ YRS VACCINE 2020-08-09 00:00:00 Completed [facility] SARS-COV-2 COVID-19 MODERNA 12+ YRS VACCINE 2020-08-09 00:00:00 Completed [facility] SARS-COV-2 COVID-19 MODERNA 12+ YRS VACCINE 2020-08-09 00:00:00 Completed [facility] SARS-COV-2 COVID-19 MODERNA 12+ YRS VACCINE 2020-08-09 00:00:00 Completed [facility] SARS-COV-2 COVID-19 MODERNA 12+ YRS VACCINE 2020-08-09 00:00:00 Completed [facility] SARS-COV-2 COVID-19 MODERNA 12+ YRS VACCINE 2020-08-09 00:00:00 Completed [facility] SARS-COV-2 COVID-19 MODERNA 12+ YRS VACCINE 2020-08-09 00:00:00 Completed [facility] SARS-COV-2 COVID-19 MODERNA 12+ YRS VACCINE 2020-08-09 00:00:00 Completed [facility] SARS-COV-2 COVID-19 MODERNA 12+ YRS VACCINE 2020-08-09 00:00:00 Completed [facility] SARS-COV-2 COVID-19 MODERNA 12+ YRS VACCINE 2020-08-09 00:00:00 Completed [facility] SARS-COV-2 COVID-19 MODERNA 12+ YRS VACCINE 2020-08-09 00:00:00 Completed [facility] SARS-COV-2 COVID-19 MODERNA 12+ YRS VACCINE 2020-08-09 00:00:00 Completed [facility] SARS-COV-2 COVID-19 MODERNA 12+ YRS VACCINE 2020-08-09 00:00:00 Completed [facility] SARS-COV-2 COVID-19 MODERNA 12+ YRS VACCINE 2020-08-09 00:00:00 Completed [facility] SARS-COV-2 COVID-19 MODERNA 12+ YRS VACCINE 2020-08-09 00:00:00 Completed [facility] SARS-COV-2 COVID-19 MODERNA 12+ YRS VACCINE 2020-08-09 00:00:00 Completed [facility] SARS-COV-2 COVID-19 MODERNA 12+ YRS VACCINE 2020-08-09 00:00:00 Completed [facility] SARS-COV-2 COVID-19 MODERNA 12+ YRS VACCINE 2020-08-09 00:00:00 Completed [facility] SARS-COV-2 COVID-19 MODERNA 12+ YRS VACCINE 2020-08-09 00:00:00 Completed [facility] SARS-COV-2 COVID-19 MODERNA 12+ YRS VACCINE 2020-08-09 00:00:00 Completed [facility] SARS-COV-2 COVID-19 MODERNA 12+ YRS VACCINE 2020-08-09 00:00:00 Completed [facility] SARS-COV-2 COVID-19 MODERNA 12+ YRS VACCINE 2020-08-09 00:00:00 Completed [facility] SARS-COV-2 COVID-19 MODERNA 12+ YRS VACCINE 2020-08-09 00:00:00 Completed [facility] SARS-COV-2 COVID-19 MODERNA 12+ YRS VACCINE 2020-08-09 00:00:00 Completed [facility] SARS-COV-2 COVID-19 MODERNA 12+ YRS VACCINE 2020-08-09 00:00:00 Completed [facility] SARS-COV-2 COVID-19 MODERNA 12+ YRS VACCINE 2020-08-09 00:00:00 Completed [facility] SARS-COV-2 COVID-19 MODERNA 12+ YRS VACCINE 2020-08-09 00:00:00 Completed [facility] SARS-COV-2 COVID-19 MODERNA 12+ YRS VACCINE 2020-08-09 00:00:00 Completed [facility] SARS-COV-2 COVID-19 MODERNA 12+ YRS VACCINE 2020-08-09 00:00:00 Completed [facility] SARS-COV-2 COVID-19 MODERNA 12+ YRS VACCINE 2020-08-09 00:00:00 Completed [facility] SARS-COV-2 COVID-19 MODERNA 12+ YRS VACCINE 2020-08-09 00:00:00 Completed [facility] SARS-COV-2 COVID-19 MODERNA 12+ YRS VACCINE 2020-08-09 00:00:00 Completed [facility] SARS-COV-2 COVID-19 MODERNA 12+ YRS VACCINE 2020-08-09 00:00:00 Completed [facility] SARS-COV-2 COVID-19 MODERNA 12+ YRS VACCINE 2020-08-09 00:00:00 Completed [facility] SARS-COV-2 COVID-19 MODERNA 12+ YRS VACCINE 2020-08-09 00:00:00 Completed [facility] SARS-COV-2 COVID-19 MODERNA 12+ YRS VACCINE 2020-08-09 00:00:00 Completed [facility] SARS-COV-2 COVID-19 MODERNA 12+ YRS VACCINE 2020-08-09 00:00:00 Completed [facility] SARS-COV-2 COVID-19 MODERNA 12+ YRS VACCINE 2020-08-09 00:00:00 Completed [facility] SARS-COV-2 COVID-19 MODERNA 12+ YRS VACCINE 2020-08-09 00:00:00 Completed [facility] SARS-COV-2 COVID-19 MODERNA 12+ YRS VACCINE 2020-08-09 00:00:00 Completed [facility] SARS-COV-2 COVID-19 MODERNA 12+ YRS VACCINE 2020-08-09 00:00:00 Completed [facility] SARS-COV-2 COVID-19 MODERNA 12+ YRS VACCINE 2020-08-09 00:00:00 Completed [facility] SARS-COV-2 COVID-19 MODERNA 12+ YRS VACCINE 2020-08-09 00:00:00 Completed [facility] SARS-COV-2 COVID-19 MODERNA 12+ YRS VACCINE 2020-08-09 00:00:00 Completed [facility] SARS-COV-2 COVID-19 MODERNA 12+ YRS VACCINE 2020-08-09 00:00:00 Completed [facility] SARS-COV-2 COVID-19 MODERNA 12+ YRS VACCINE 2020-08-09 00:00:00 Completed [facility] SARS-COV-2 COVID-19 MODERNA 12+ YRS VACCINE 2020-08-09 00:00:00 Completed [facility] SARS-COV-2 COVID-19 MODERNA 12+ YRS VACCINE 2020-08-09 00:00:00 Completed [facility] SARS-COV-2 COVID-19 MODERNA 12+ YRS VACCINE 2020-08-09 00:00:00 Completed [facility] SARS-COV-2 COVID-19 MODERNA 12+ YRS VACCINE 2020-08-09 00:00:00 Completed [facility] SARS-COV-2 COVID-19 MODERNA 12+ YRS VACCINE 2020-08-09 00:00:00 Completed [facility] SARS-COV-2 COVID-19 MODERNA 12+ YRS VACCINE 2020-08-09 00:00:00 Completed [facility] SARS-COV-2 COVID-19 MODERNA 12+ YRS VACCINE 2020-08-09 00:00:00 Completed [facility] SARS-COV-2 COVID-19 MODERNA 12+ YRS VACCINE 2020-08-09 00:00:00 Completed [facility] SARS-COV-2 COVID-19 MODERNA 12+ YRS VACCINE 2020-08-09 00:00:00 Completed [facility] SARS-COV-2 COVID-19 MODERNA 12+ YRS VACCINE 2020-08-09 00:00:00 Completed [facility] SARS-COV-2 COVID-19 MODERNA 12+ YRS VACCINE 2020-08-09 00:00:00 Completed [facility] SARS-COV-2 COVID-19 MODERNA 12+ YRS VACCINE 2020-08-09 00:00:00 Completed [facility] SARS-COV-2 COVID-19 MODERNA 12+ YRS VACCINE 2020-08-09 00:00:00 Completed [facility] SARS-COV-2 COVID-19 MODERNA 12+ YRS VACCINE 2020-08-09 00:00:00 Completed [facility] SARS-COV-2 COVID-19 MODERNA 12+ YRS VACCINE 2020-08-09 00:00:00 Completed [facility] SARS-COV-2 COVID-19 MODERNA 12+ YRS VACCINE 2020-08-09 00:00:00 Completed [facility] SARS-COV-2 COVID-19 MODERNA 12+ YRS VACCINE 2020-08-09 00:00:00 Completed [facility] SARS-COV-2 COVID-19 MODERNA 12+ YRS VACCINE 2020-08-09 00:00:00 Completed [facility] SARS-COV-2 COVID-19 MODERNA 12+ YRS VACCINE 2020-08-09 00:00:00 Completed [facility] SARS-COV-2 COVID-19 MODERNA 12+ YRS VACCINE 2020-08-09 00:00:00 Completed [facility] SARS-COV-2 COVID-19 MODERNA 12+ YRS VACCINE 2020-08-09 00:00:00 Completed [facility] SARS-COV-2 COVID-19 MODERNA 12+ YRS VACCINE 2020-08-09 00:00:00 Completed [facility] SARS-COV-2 COVID-19 MODERNA 12+ YRS VACCINE 2020-08-09 00:00:00 Completed [facility] SARS-COV-2 COVID-19 MODERNA 12+ YRS VACCINE 2020-08-09 00:00:00 Completed [facility] SARS-COV-2 COVID-19 MODERNA 12+ YRS VACCINE 2020-08-09 00:00:00 Completed [facility] SARS-COV-2 COVID-19 MODERNA 12+ YRS VACCINE 2020-08-09 00:00:00 Completed [facility] SARS-COV-2 COVID-19 MODERNA 12+ YRS VACCINE 2020-08-09 00:00:00 Completed [facility] SARS-COV-2 COVID-19 MODERNA 12+ YRS VACCINE 2020-08-09 00:00:00 Completed [facility] SARS-COV-2 COVID-19 MODERNA 12+ YRS VACCINE 2020-08-09 00:00:00 Completed [facility] SARS-COV-2 COVID-19 MODERNA 12+ YRS VACCINE 2020-08-09 00:00:00 Completed [facility] SARS-COV-2 COVID-19 MODERNA 12+ YRS VACCINE 2020-08-09 00:00:00 Completed [facility] SARS-COV-2 COVID-19 MODERNA 12+ YRS VACCINE 2020-08-09 00:00:00 Completed [facility] SARS-COV-2 COVID-19 MODERNA 12+ YRS VACCINE 2020-08-09 00:00:00 Completed [facility] SARS-COV-2 COVID-19 MODERNA 12+ YRS VACCINE 2020-08-09 00:00:00 Completed [facility] SARS-COV-2 COVID-19 MODERNA 12+ YRS VACCINE 2020-08-09 00:00:00 Completed [facility] Pneumococcal Polysaccharide, PPSV23 (PNEUMOVAX) 2020-06-15 00:00:00 Completed [facility] Influenza Virus Vaccine Quad .5 mL IM 6+ MO 2020-06-15 00:00:00 Completed [facility] Pneumococcal Polysaccharide, PPSV23 (PNEUMOVAX) 2020-06-15 00:00:00 Completed [facility] Influenza Virus Vaccine Quad .5 mL IM 6+ MO 2020-06-15 00:00:00 Completed [facility] Pneumococcal Polysaccharide, PPSV23 (PNEUMOVAX) 2020-06-15 00:00:00 Completed [facility] Influenza Virus Vaccine Quad .5 mL IM 6+ MO 2020-06-15 00:00:00 Completed [facility] Pneumococcal Polysaccharide, PPSV23 (PNEUMOVAX) 2020-06-15 00:00:00 Completed [facility] Influenza Virus Vaccine Quad .5 mL IM 6+ MO 2020-06-15 00:00:00 Completed [facility] Pneumococcal Polysaccharide, PPSV23 (PNEUMOVAX) 2020-06-15 00:00:00 Completed [facility] Influenza Virus Vaccine Quad .5 mL IM 6+ MO 2020-06-15 00:00:00 Completed [facility] Pneumococcal Polysaccharide, PPSV23 (PNEUMOVAX) 2020-06-15 00:00:00 Completed [facility] Influenza Virus Vaccine Quad .5 mL IM 6+ MO 2020-06-15 00:00:00 Completed [facility] Pneumococcal Polysaccharide, PPSV23 (PNEUMOVAX) 2020-06-15 00:00:00 Completed [facility] Influenza Virus Vaccine Quad .5 mL IM 6+ MO 2020-06-15 00:00:00 Completed [facility] Pneumococcal Polysaccharide, PPSV23 (PNEUMOVAX) 2020-06-15 00:00:00 Completed [facility] Influenza Virus Vaccine Quad .5 mL IM 6+ MO 2020-06-15 00:00:00 Completed [facility] Pneumococcal Polysaccharide, PPSV23 (PNEUMOVAX) 2020-06-15 00:00:00 Completed [facility] Influenza Virus Vaccine Quad .5 mL IM 6+ MO 2020-06-15 00:00:00 Completed [facility] Pneumococcal Polysaccharide, PPSV23 (PNEUMOVAX) 2020-06-15 00:00:00 Completed [facility] Influenza Virus Vaccine Quad .5 mL IM 6+ MO 2020-06-15 00:00:00 Completed [facility] Pneumococcal Polysaccharide, PPSV23 (PNEUMOVAX) 2020-06-15 00:00:00 Completed [facility] Influenza Virus Vaccine Quad .5 mL IM 6+ MO 2020-06-15 00:00:00 Completed [facility] Pneumococcal Polysaccharide, PPSV23 (PNEUMOVAX) 2020-06-15 00:00:00 Completed [facility] Influenza Virus Vaccine Quad .5 mL IM 6+ MO 2020-06-15 00:00:00 Completed [facility] Pneumococcal Polysaccharide, PPSV23 (PNEUMOVAX) 2020-06-15 00:00:00 Completed [facility] Influenza Virus Vaccine Quad .5 mL IM 6+ MO 2020-06-15 00:00:00 Completed [facility] Pneumococcal Polysaccharide, PPSV23 (PNEUMOVAX) 2020-06-15 00:00:00 Completed [facility] Influenza Virus Vaccine Quad .5 mL IM 6+ MO 2020-06-15 00:00:00 Completed [facility] Pneumococcal Polysaccharide, PPSV23 (PNEUMOVAX) 2020-06-15 00:00:00 Completed [facility] Influenza Virus Vaccine Quad .5 mL IM 6+ MO 2020-06-15 00:00:00 Completed [facility] Pneumococcal Polysaccharide, PPSV23 (PNEUMOVAX) 2020-06-15 00:00:00 Completed [facility] Influenza Virus Vaccine Quad .5 mL IM 6+ MO 2020-06-15 00:00:00 Completed [facility] Pneumococcal Polysaccharide, PPSV23 (PNEUMOVAX) 2020-06-15 00:00:00 Completed [facility] Influenza Virus Vaccine Quad .5 mL IM 6+ MO 2020-06-15 00:00:00 Completed [facility] Pneumococcal Polysaccharide, PPSV23 (PNEUMOVAX) 2020-06-15 00:00:00 Completed [facility] Influenza Virus Vaccine Quad .5 mL IM 6+ MO 2020-06-15 00:00:00 Completed [facility] Pneumococcal Polysaccharide, PPSV23 (PNEUMOVAX) 2020-06-15 00:00:00 Completed [facility] Influenza Virus Vaccine Quad .5 mL IM 6+ MO 2020-06-15 00:00:00 Completed [facility] Pneumococcal Polysaccharide, PPSV23 (PNEUMOVAX) 2020-06-15 00:00:00 Completed [facility] Influenza Virus Vaccine Quad .5 mL IM 6+ MO 2020-06-15 00:00:00 Completed [facility] Pneumococcal Polysaccharide, PPSV23 (PNEUMOVAX) 2020-06-15 00:00:00 Completed [facility] Influenza Virus Vaccine Quad .5 mL IM 6+ MO 2020-06-15 00:00:00 Completed [facility] Pneumococcal Polysaccharide, PPSV23 (PNEUMOVAX) 2020-06-15 00:00:00 Completed [facility] Influenza Virus Vaccine Quad .5 mL IM 6+ MO 2020-06-15 00:00:00 Completed [facility] Pneumococcal Polysaccharide, PPSV23 (PNEUMOVAX) 2020-06-15 00:00:00 Completed [facility] Influenza Virus Vaccine Quad .5 mL IM 6+ MO 2020-06-15 00:00:00 Completed [facility] Pneumococcal Polysaccharide, PPSV23 (PNEUMOVAX) 2020-06-15 00:00:00 Completed [facility] Influenza Virus Vaccine Quad .5 mL IM 6+ MO 2020-06-15 00:00:00 Completed [facility] Pneumococcal Polysaccharide, PPSV23 (PNEUMOVAX) 2020-06-15 00:00:00 Completed [facility] Influenza Virus Vaccine Quad .5 mL IM 6+ MO 2020-06-15 00:00:00 Completed [facility] Pneumococcal Polysaccharide, PPSV23 (PNEUMOVAX) 2020-06-15 00:00:00 Completed [facility] Influenza Virus Vaccine Quad .5 mL IM 6+ MO 2020-06-15 00:00:00 Completed [facility] Pneumococcal Polysaccharide, PPSV23 (PNEUMOVAX) 2020-06-15 00:00:00 Completed [facility] Influenza Virus Vaccine Quad .5 mL IM 6+ MO 2020-06-15 00:00:00 Completed [facility] Pneumococcal Polysaccharide, PPSV23 (PNEUMOVAX) 2020-06-15 00:00:00 Completed [facility] Influenza Virus Vaccine Quad .5 mL IM 6+ MO 2020-06-15 00:00:00 Completed [facility] Pneumococcal Polysaccharide, PPSV23 (PNEUMOVAX) 2020-06-15 00:00:00 Completed [facility] Influenza Virus Vaccine Quad .5 mL IM 6+ MO 2020-06-15 00:00:00 Completed [facility] Pneumococcal Polysaccharide, PPSV23 (PNEUMOVAX) 2020-06-15 00:00:00 Completed [facility] Influenza Virus Vaccine Quad .5 mL IM 6+ MO 2020-06-15 00:00:00 Completed [facility] Pneumococcal Polysaccharide, PPSV23 (PNEUMOVAX) 2020-06-15 00:00:00 Completed [facility] Influenza Virus Vaccine Quad .5 mL IM 6+ MO 2020-06-15 00:00:00 Completed [facility] Pneumococcal Polysaccharide, PPSV23 (PNEUMOVAX) 2020-06-15 00:00:00 Completed [facility] Influenza Virus Vaccine Quad .5 mL IM 6+ MO 2020-06-15 00:00:00 Completed [facility] Pneumococcal Polysaccharide, PPSV23 (PNEUMOVAX) 2020-06-15 00:00:00 Completed [facility] Influenza Virus Vaccine Quad .5 mL IM 6+ MO 2020-06-15 00:00:00 Completed [facility] Pneumococcal Polysaccharide, PPSV23 (PNEUMOVAX) 2020-06-15 00:00:00 Completed [facility] Influenza Virus Vaccine Quad .5 mL IM 6+ MO 2020-06-15 00:00:00 Completed [facility] Pneumococcal Polysaccharide, PPSV23 (PNEUMOVAX) 2020-06-15 00:00:00 Completed [facility] Influenza Virus Vaccine Quad .5 mL IM 6+ MO 2020-06-15 00:00:00 Completed [facility] Pneumococcal Polysaccharide, PPSV23 (PNEUMOVAX) 2020-06-15 00:00:00 Completed [facility] Influenza Virus Vaccine Quad .5 mL IM 6+ MO 2020-06-15 00:00:00 Completed [facility] Pneumococcal Polysaccharide, PPSV23 (PNEUMOVAX) 2020-06-15 00:00:00 Completed [facility] Influenza Virus Vaccine Quad .5 mL IM 6+ MO 2020-06-15 00:00:00 Completed [facility] Pneumococcal Polysaccharide, PPSV23 (PNEUMOVAX) 2020-06-15 00:00:00 Completed [facility] Influenza Virus Vaccine Quad .5 mL IM 6+ MO 2020-06-15 00:00:00 Completed [facility] Pneumococcal Polysaccharide, PPSV23 (PNEUMOVAX) 2020-06-15 00:00:00 Completed [facility] Influenza Virus Vaccine Quad .5 mL IM 6+ MO 2020-06-15 00:00:00 Completed [facility] Pneumococcal Polysaccharide, PPSV23 (PNEUMOVAX) 2020-06-15 00:00:00 Completed [facility] Influenza Virus Vaccine Quad .5 mL IM 6+ MO 2020-06-15 00:00:00 Completed [facility] Pneumococcal Polysaccharide, PPSV23 (PNEUMOVAX) 2020-06-15 00:00:00 Completed [facility] Influenza Virus Vaccine Quad .5 mL IM 6+ MO 2020-06-15 00:00:00 Completed [facility] Pneumococcal Polysaccharide, PPSV23 (PNEUMOVAX) 2020-06-15 00:00:00 Completed [facility] Influenza Virus Vaccine Quad .5 mL IM 6+ MO 2020-06-15 00:00:00 Completed [facility] Pneumococcal Polysaccharide, PPSV23 (PNEUMOVAX) 2020-06-15 00:00:00 Completed [facility] Influenza Virus Vaccine Quad .5 mL IM 6+ MO 2020-06-15 00:00:00 Completed [facility] Pneumococcal Polysaccharide, PPSV23 (PNEUMOVAX) 2020-06-15 00:00:00 Completed [facility] Influenza Virus Vaccine Quad .5 mL IM 6+ MO 2020-06-15 00:00:00 Completed [facility] Pneumococcal Polysaccharide, PPSV23 (PNEUMOVAX) 2020-06-15 00:00:00 Completed [facility] Influenza Virus Vaccine Quad .5 mL IM 6+ MO 2020-06-15 00:00:00 Completed [facility] Pneumococcal Polysaccharide, PPSV23 (PNEUMOVAX) 2020-06-15 00:00:00 Completed [facility] Influenza Virus Vaccine Quad .5 mL IM 6+ MO 2020-06-15 00:00:00 Completed [facility] Pneumococcal Polysaccharide, PPSV23 (PNEUMOVAX) 2020-06-15 00:00:00 Completed [facility] Influenza Virus Vaccine Quad .5 mL IM 6+ MO 2020-06-15 00:00:00 Completed [facility] Pneumococcal Polysaccharide, PPSV23 (PNEUMOVAX) 2020-06-15 00:00:00 Completed [facility] Influenza Virus Vaccine Quad .5 mL IM 6+ MO 2020-06-15 00:00:00 Completed [facility] Pneumococcal Polysaccharide, PPSV23 (PNEUMOVAX) 2020-06-15 00:00:00 Completed [facility] Influenza Virus Vaccine Quad .5 mL IM 6+ MO 2020-06-15 00:00:00 Completed [facility] Pneumococcal Polysaccharide, PPSV23 (PNEUMOVAX) 2020-06-15 00:00:00 Completed [facility] Influenza Virus Vaccine Quad .5 mL IM 6+ MO 2020-06-15 00:00:00 Completed [facility] Pneumococcal Polysaccharide, PPSV23 (PNEUMOVAX) 2020-06-15 00:00:00 Completed [facility] Influenza Virus Vaccine Quad .5 mL IM 6+ MO 2020-06-15 00:00:00 Completed [facility] Pneumococcal Polysaccharide, PPSV23 (PNEUMOVAX) 2020-06-15 00:00:00 Completed [facility] Influenza Virus Vaccine Quad .5 mL IM 6+ MO 2020-06-15 00:00:00 Completed [facility] Pneumococcal Polysaccharide, PPSV23 (PNEUMOVAX) 2020-06-15 00:00:00 Completed [facility] Influenza Virus Vaccine Quad .5 mL IM 6+ MO 2020-06-15 00:00:00 Completed [facility] Pneumococcal Polysaccharide, PPSV23 (PNEUMOVAX) 2020-06-15 00:00:00 Completed [facility] Influenza Virus Vaccine Quad .5 mL IM 6+ MO 2020-06-15 00:00:00 Completed [facility] Pneumococcal Polysaccharide, PPSV23 (PNEUMOVAX) 2020-06-15 00:00:00 Completed [facility] Influenza Virus Vaccine Quad .5 mL IM 6+ MO 2020-06-15 00:00:00 Completed [facility] Pneumococcal Polysaccharide, PPSV23 (PNEUMOVAX) 2020-06-15 00:00:00 Completed [facility] Influenza Virus Vaccine Quad .5 mL IM 6+ MO 2020-06-15 00:00:00 Completed [facility] Pneumococcal Polysaccharide, PPSV23 (PNEUMOVAX) 2020-06-15 00:00:00 Completed [facility] Influenza Virus Vaccine Quad .5 mL IM 6+ MO 2020-06-15 00:00:00 Completed [facility] Pneumococcal Polysaccharide, PPSV23 (PNEUMOVAX) 2020-06-15 00:00:00 Completed [facility] Influenza Virus Vaccine Quad .5 mL IM 6+ MO 2020-06-15 00:00:00 Completed [facility] Pneumococcal Polysaccharide, PPSV23 (PNEUMOVAX) 2020-06-15 00:00:00 Completed [facility] Influenza Virus Vaccine Quad .5 mL IM 6+ MO 2020-06-15 00:00:00 Completed [facility] Pneumococcal Polysaccharide, PPSV23 (PNEUMOVAX) 2020-06-15 00:00:00 Completed [facility] Influenza Virus Vaccine Quad .5 mL IM 6+ MO 2020-06-15 00:00:00 Completed [facility] Pneumococcal Polysaccharide, PPSV23 (PNEUMOVAX) 2020-06-15 00:00:00 Completed [facility] Influenza Virus Vaccine Quad .5 mL IM 6+ MO 2020-06-15 00:00:00 Completed [facility] Pneumococcal Polysaccharide, PPSV23 (PNEUMOVAX) 2020-06-15 00:00:00 Completed [facility] Influenza Virus Vaccine Quad .5 mL IM 6+ MO 2020-06-15 00:00:00 Completed [facility] Pneumococcal Polysaccharide, PPSV23 (PNEUMOVAX) 2020-06-15 00:00:00 Completed [facility] Influenza Virus Vaccine Quad .5 mL IM 6+ MO 2020-06-15 00:00:00 Completed [facility] Pneumococcal Polysaccharide, PPSV23 (PNEUMOVAX) 2020-06-15 00:00:00 Completed [facility] Influenza Virus Vaccine Quad .5 mL IM 6+ MO 2020-06-15 00:00:00 Completed [facility] Pneumococcal Polysaccharide, PPSV23 (PNEUMOVAX) 2020-06-15 00:00:00 Completed [facility] Influenza Virus Vaccine Quad .5 mL IM 6+ MO 2020-06-15 00:00:00 Completed [facility] Pneumococcal Polysaccharide, PPSV23 (PNEUMOVAX) 2020-06-15 00:00:00 Completed [facility] Influenza Virus Vaccine Quad .5 mL IM 6+ MO 2020-06-15 00:00:00 Completed [facility] Pneumococcal Polysaccharide, PPSV23 (PNEUMOVAX) 2020-06-15 00:00:00 Completed [facility] Influenza Virus Vaccine Quad .5 mL IM 6+ MO 2020-06-15 00:00:00 Completed [facility] Pneumococcal Polysaccharide, PPSV23 (PNEUMOVAX) 2020-06-15 00:00:00 Completed [facility] Influenza Virus Vaccine Quad .5 mL IM 6+ MO 2020-06-15 00:00:00 Completed [facility] Pneumococcal Polysaccharide, PPSV23 (PNEUMOVAX) 2020-06-15 00:00:00 Completed [facility] Influenza Virus Vaccine Quad .5 mL IM 6+ MO 2020-06-15 00:00:00 Completed [facility] Pneumococcal Polysaccharide, PPSV23 (PNEUMOVAX) 2020-06-15 00:00:00 Completed [facility] Influenza Virus Vaccine Quad .5 mL IM 6+ MO 2020-06-15 00:00:00 Completed [facility] Pneumococcal Polysaccharide, PPSV23 (PNEUMOVAX) 2020-06-15 00:00:00 Completed [facility] Influenza Virus Vaccine Quad .5 mL IM 6+ MO 2020-06-15 00:00:00 Completed [facility] Pneumococcal Polysaccharide, PPSV23 (PNEUMOVAX) 2020-06-15 00:00:00 Completed [facility] Influenza Virus Vaccine Quad .5 mL IM 6+ MO 2020-06-15 00:00:00 Completed [facility] Pneumococcal Polysaccharide, PPSV23 (PNEUMOVAX) 2020-06-15 00:00:00 Completed [facility] Influenza Virus Vaccine Quad .5 mL IM 6+ MO 2020-06-15 00:00:00 Completed [facility] Pneumococcal Polysaccharide, PPSV23 (PNEUMOVAX) 2020-06-15 00:00:00 Completed [facility] Influenza Virus Vaccine Quad .5 mL IM 6+ MO 2020-06-15 00:00:00 Completed [facility] Pneumococcal Polysaccharide, PPSV23 (PNEUMOVAX) 2020-06-15 00:00:00 Completed [facility] Influenza Virus Vaccine Quad .5 mL IM 6+ MO 2020-06-15 00:00:00 Completed [facility] Pneumococcal Polysaccharide, PPSV23 (PNEUMOVAX) 2020-06-15 00:00:00 Completed [facility] Influenza Virus Vaccine Quad .5 mL IM 6+ MO 2020-06-15 00:00:00 Completed [facility] Pneumococcal Polysaccharide, PPSV23 (PNEUMOVAX) 2020-06-15 00:00:00 Completed [facility] Influenza Virus Vaccine Quad .5 mL IM 6+ MO 2020-06-15 00:00:00 Completed [facility] Pneumococcal Polysaccharide, PPSV23 (PNEUMOVAX) 2020-06-15 00:00:00 Completed [facility] Influenza Virus Vaccine Quad .5 mL IM 6+ MO 2020-06-15 00:00:00 Completed [facility] Pneumococcal Polysaccharide, PPSV23 (PNEUMOVAX) 2020-06-15 00:00:00 Completed [facility] Influenza Virus Vaccine Quad .5 mL IM 6+ MO 2020-06-15 00:00:00 Completed [facility] Pneumococcal Polysaccharide, PPSV23 (PNEUMOVAX) 2020-06-15 00:00:00 Completed [facility] Influenza Virus Vaccine Quad .5 mL IM 6+ MO 2020-06-15 00:00:00 Completed [facility] Pneumococcal Polysaccharide, PPSV23 (PNEUMOVAX) 2020-06-15 00:00:00 Completed [facility] Influenza Virus Vaccine Quad .5 mL IM 6+ MO 2020-06-15 00:00:00 Completed [facility] Pneumococcal Polysaccharide, PPSV23 (PNEUMOVAX) 2020-06-15 00:00:00 Completed [facility] Influenza Virus Vaccine Quad .5 mL IM 6+ MO 2020-06-15 00:00:00 Completed [facility] Pneumococcal Polysaccharide, PPSV23 (PNEUMOVAX) 2020-06-15 00:00:00 Completed [facility] Influenza Virus Vaccine Quad .5 mL IM 6+ MO 2020-06-15 00:00:00 Completed [facility] Pneumococcal Polysaccharide, PPSV23 (PNEUMOVAX) 2020-06-15 00:00:00 Completed [facility] Influenza Virus Vaccine Quad .5 mL IM 6+ MO 2020-06-15 00:00:00 Completed [facility] Pneumococcal Polysaccharide, PPSV23 (PNEUMOVAX) 2020-06-15 00:00:00 Completed [facility] Influenza Virus Vaccine Quad .5 mL IM 6+ MO 2020-06-15 00:00:00 Completed [facility] Pneumococcal Polysaccharide, PPSV23 (PNEUMOVAX) 2020-06-15 00:00:00 Completed [facility] Influenza Virus Vaccine Quad .5 mL IM 6+ MO 2020-06-15 00:00:00 Completed [facility] Pneumococcal Polysaccharide, PPSV23 (PNEUMOVAX) 2020-06-15 00:00:00 Completed [facility] Influenza Virus Vaccine Quad .5 mL IM 6+ MO 2020-06-15 00:00:00 Completed [facility] Pneumococcal Polysaccharide, PPSV23 (PNEUMOVAX) 2020-06-15 00:00:00 Completed [facility] Influenza Virus Vaccine Quad .5 mL IM 6+ MO 2020-06-15 00:00:00 Completed [facility] Pneumococcal Polysaccharide, PPSV23 (PNEUMOVAX) 2020-06-15 00:00:00 Completed [facility] Influenza Virus Vaccine Quad .5 mL IM 6+ MO 2020-06-15 00:00:00 Completed [facility] Pneumococcal Polysaccharide, PPSV23 (PNEUMOVAX) 2020-06-15 00:00:00 Completed [facility] Influenza Virus Vaccine Quad .5 mL IM 6+ MO 2020-06-15 00:00:00 Completed [facility] Pneumococcal Polysaccharide, PPSV23 (PNEUMOVAX) 2020-06-15 00:00:00 Completed [facility] Influenza Virus Vaccine Quad .5 mL IM 6+ MO 2020-06-15 00:00:00 Completed [facility] Pneumococcal Polysaccharide, PPSV23 (PNEUMOVAX) 2020-06-15 00:00:00 Completed [facility] Influenza Virus Vaccine Quad .5 mL IM 6+ MO 2020-06-15 00:00:00 Completed [facility] Pneumococcal Polysaccharide, PPSV23 (PNEUMOVAX) 2020-06-15 00:00:00 Completed [facility] Influenza Virus Vaccine Quad .5 mL IM 6+ MO 2020-06-15 00:00:00 Completed [facility] Pneumococcal Polysaccharide, PPSV23 (PNEUMOVAX) 2020-06-15 00:00:00 Completed [facility] Influenza Virus Vaccine Quad .5 mL IM 6+ MO 2020-06-15 00:00:00 Completed [facility] Pneumococcal Polysaccharide, PPSV23 (PNEUMOVAX) 2020-06-15 00:00:00 Completed [facility] Influenza Virus Vaccine Quad .5 mL IM 6+ MO 2020-06-15 00:00:00 Completed [facility] Pneumococcal Polysaccharide, PPSV23 (PNEUMOVAX) 2020-06-15 00:00:00 Completed [facility] Influenza Virus Vaccine Quad .5 mL IM 6+ MO 2020-06-15 00:00:00 Completed [facility] Pneumococcal Polysaccharide, PPSV23 (PNEUMOVAX) 2020-06-15 00:00:00 Completed [facility] Influenza Virus Vaccine Quad .5 mL IM 6+ MO 2020-06-15 00:00:00 Completed [facility] Pneumococcal Polysaccharide, PPSV23 (PNEUMOVAX) 2020-06-15 00:00:00 Completed [facility] Influenza Virus Vaccine Quad .5 mL IM 6+ MO 2020-06-15 00:00:00 Completed [facility] Pneumococcal Polysaccharide, PPSV23 (PNEUMOVAX) 2020-06-15 00:00:00 Completed [facility] Influenza Virus Vaccine Quad .5 mL IM 6+ MO 2020-06-15 00:00:00 Completed [facility] Pneumococcal Polysaccharide, PPSV23 (PNEUMOVAX) 2020-06-15 00:00:00 Completed [facility] Influenza Virus Vaccine Quad .5 mL IM 6+ MO 2020-06-15 00:00:00 Completed [facility] Pneumococcal Polysaccharide, PPSV23 (PNEUMOVAX) 2020-06-15 00:00:00 Completed [facility] Influenza Virus Vaccine Quad .5 mL IM 6+ MO 2020-06-15 00:00:00 Completed [facility] Pneumococcal Polysaccharide, PPSV23 (PNEUMOVAX) 2020-06-15 00:00:00 Completed [facility] Influenza Virus Vaccine Quad .5 mL IM 6+ MO 2020-06-15 00:00:00 Completed [facility] Pneumococcal Polysaccharide, PPSV23 (PNEUMOVAX) 2020-06-15 00:00:00 Completed [facility] Influenza Virus Vaccine Quad .5 mL IM 6+ MO 2020-06-15 00:00:00 Completed [facility] Pneumococcal Polysaccharide, PPSV23 (PNEUMOVAX) 2020-06-15 00:00:00 Completed [facility] Influenza Virus Vaccine Quad .5 mL IM 6+ MO 2020-06-15 00:00:00 Completed [facility] Pneumococcal Polysaccharide, PPSV23 (PNEUMOVAX) 2020-06-15 00:00:00 Completed [facility] Influenza Virus Vaccine Quad .5 mL IM 6+ MO 2020-06-15 00:00:00 Completed [facility] Pneumococcal Polysaccharide, PPSV23 (PNEUMOVAX) 2020-06-15 00:00:00 Completed [facility] Influenza Virus Vaccine Quad .5 mL IM 6+ MO 2020-06-15 00:00:00 Completed [facility] Pneumococcal Polysaccharide, PPSV23 (PNEUMOVAX) 2020-06-15 00:00:00 Completed [facility] Influenza Virus Vaccine Quad .5 mL IM 6+ MO 2020-06-15 00:00:00 Completed [facility] Pneumococcal Polysaccharide, PPSV23 (PNEUMOVAX) 2020-06-15 00:00:00 Completed [facility] Influenza Virus Vaccine Quad .5 mL IM 6+ MO 2020-06-15 00:00:00 Completed [facility] Pneumococcal Polysaccharide, PPSV23 (PNEUMOVAX) 2020-06-15 00:00:00 Completed [facility] Influenza Virus Vaccine Quad .5 mL IM 6+ MO 2020-06-15 00:00:00 Completed [facility] Pneumococcal Polysaccharide, PPSV23 (PNEUMOVAX) 2020-06-15 00:00:00 Completed [facility] Influenza Virus Vaccine Quad .5 mL IM 6+ MO 2020-06-15 00:00:00 Completed [facility] Pneumococcal Polysaccharide, PPSV23 (PNEUMOVAX) 2020-06-15 00:00:00 Completed [facility] Influenza Virus Vaccine Quad .5 mL IM 6+ MO 2020-06-15 00:00:00 Completed [facility] Pneumococcal Polysaccharide, PPSV23 (PNEUMOVAX) 2020-06-15 00:00:00 Completed [facility] Influenza Virus Vaccine Quad .5 mL IM 6+ MO 2020-06-15 00:00:00 Completed [facility] Pneumococcal Polysaccharide, PPSV23 (PNEUMOVAX) 2020-06-15 00:00:00 Completed [facility] Influenza Virus Vaccine Quad .5 mL IM 6+ MO 2020-06-15 00:00:00 Completed [facility] Pneumococcal Polysaccharide, PPSV23 (PNEUMOVAX) 2020-06-15 00:00:00 Completed [facility] Influenza Virus Vaccine Quad .5 mL IM 6+ MO 2020-06-15 00:00:00 Completed [facility] Pneumococcal Polysaccharide, PPSV23 (PNEUMOVAX) 2020-06-15 00:00:00 Completed [facility] Influenza Virus Vaccine Quad .5 mL IM 6+ MO 2020-06-15 00:00:00 Completed [facility] Pneumococcal Polysaccharide, PPSV23 (PNEUMOVAX) 2020-06-15 00:00:00 Completed [facility] Influenza Virus Vaccine Quad .5 mL IM 6+ MO 2020-06-15 00:00:00 Completed [facility] Pneumococcal Polysaccharide, PPSV23 (PNEUMOVAX) 2020-06-15 00:00:00 Completed [facility] [facility] Influ[facility] Virus Vaccine Quad .5 mL IM 6+ MO 2020-06-15 00:00:00 Completed [facility] Pneumococcal Polysaccharide, PPSV23 (PNEUMOVAX) 2020-06-15 00:00:00 Completed [facility] Influenza Virus Vaccine Quad .5 mL IM 6+ MO 2020-06-15 00:00:00 Completed [facility] Pneumococcal Polysaccharide, PPSV23 (PNEUMOVAX) 2020-06-15 00:00:00 Completed [facility] Influenza Virus Vaccine Quad .5 mL IM 6+ MO 2020-06-15 00:00:00 Completed [facility] Pneumococcal Polysaccharide, PPSV23 (PNEUMOVAX) 2020-06-15 00:00:00 Completed [facility] Influenza Virus Vaccine Quad .5 mL IM 6+ MO 2020-06-15 00:00:00 Completed [facility] Pneumococcal Polysaccharide, PPSV23 (PNEUMOVAX) 2020-06-15 00:00:00 Completed [facility] Influenza Virus Vaccine Quad .5 mL IM 6+ MO 2020-06-15 00:00:00 Completed [facility] Pneumococcal Polysaccharide, PPSV23 (PNEUMOVAX) 2020-06-15 00:00:00 Completed [facility] Influenza Virus Vaccine Quad .5 mL IM 6+ MO 2020-06-15 00:00:00 Completed [facility] Pneumococcal Polysaccharide, PPSV23 (PNEUMOVAX) 2020-06-15 00:00:00 Completed [facility] Influenza Virus Vaccine Quad .5 mL IM 6+ MO 2020-06-15 00:00:00 Completed [facility] Pneumococcal Polysaccharide, PPSV23 (PNEUMOVAX) 2020-06-15 00:00:00 Completed [facility] Influenza Virus Vaccine Quad .5 mL IM 6+ MO 2020-06-15 00:00:00 Completed [facility] Pneumococcal Polysaccharide, PPSV23 (PNEUMOVAX) 2020-06-15 00:00:00 Completed [facility] Influenza Virus Vaccine Quad .5 mL IM 6+ MO 2020-06-15 00:00:00 Completed [facility] Pneumococcal Polysaccharide, PPSV23 (PNEUMOVAX) 2020-06-15 00:00:00 Completed [facility] Influenza Virus Vaccine Quad .5 mL IM 6+ MO 2020-06-15 00:00:00 Completed [facility] Pneumococcal Polysaccharide, PPSV23 (PNEUMOVAX) 2020-06-15 00:00:00 Completed [facility] Influenza Virus Vaccine Quad .5 mL IM 6+ MO 2020-06-15 00:00:00 Completed [facility] Pneumococcal Polysaccharide, PPSV23 (PNEUMOVAX) 2020-06-15 00:00:00 Completed [facility] Influenza Virus Vaccine Quad .5 mL IM 6+ MO 2020-06-15 00:00:00 Completed [facility] Pneumococcal Polysaccharide, PPSV23 (PNEUMOVAX) 2020-06-15 00:00:00 Completed [facility] Influenza Virus Vaccine Quad .5 mL IM 6+ MO 2020-06-15 00:00:00 Completed [facility] Pneumococcal Polysaccharide, PPSV23 (PNEUMOVAX) 2020-06-15 00:00:00 Completed [facility] Influenza Virus Vaccine Quad .5 mL IM 6+ MO 2020-06-15 00:00:00 Completed [facility] Pneumococcal Polysaccharide, PPSV23 (PNEUMOVAX) 2020-06-15 00:00:00 Completed [facility] Influenza Virus Vaccine Quad .5 mL IM 6+ MO 2020-06-15 00:00:00 Completed [facility] Pneumococcal Polysaccharide, PPSV23 (PNEUMOVAX) 2020-06-15 00:00:00 Completed [facility] Influenza Virus Vaccine Quad .5 mL IM 6+ MO 2020-06-15 00:00:00 Completed [facility] Pneumococcal Polysaccharide, PPSV23 (PNEUMOVAX) 2020-06-15 00:00:00 Completed [facility] Influenza Virus Vaccine Quad .5 mL IM 6+ MO 2020-06-15 00:00:00 Completed [facility] Pneumococcal Polysaccharide, PPSV23 (PNEUMOVAX) 2020-06-15 00:00:00 Completed [facility] Influenza Virus Vaccine Quad .5 mL IM 6+ MO 2020-06-15 00:00:00 Completed [facility] Pneumococcal Polysaccharide, PPSV23 (PNEUMOVAX) 2020-06-15 00:00:00 Completed [facility] Influenza Virus Vaccine Quad .5 mL IM 6+ MO 2020-06-15 00:00:00 Completed [facility] Pneumococcal Polysaccharide, PPSV23 (PNEUMOVAX) 2020-06-15 00:00:00 Completed [facility] Influenza Virus Vaccine Quad .5 mL IM 6+ MO 2020-06-15 00:00:00 Completed [facility] Pneumococcal Polysaccharide, PPSV23 (PNEUMOVAX) 2020-06-15 00:00:00 Completed [facility] Influenza Virus Vaccine Quad .5 mL IM 6+ MO 2020-06-15 00:00:00 Completed [facility] Pneumococcal Polysaccharide, PPSV23 (PNEUMOVAX) 2020-06-15 00:00:00 Completed [facility] Influenza Virus Vaccine Quad .5 mL IM 6+ MO 2020-06-15 00:00:00 Completed [facility] Pneumococcal Polysaccharide, PPSV23 (PNEUMOVAX) 2020-06-15 00:00:00 Completed [facility] Influenza Virus Vaccine Quad .5 mL IM 6+ MO 2020-06-15 00:00:00 Completed [facility] Pneumococcal Polysaccharide, PPSV23 (PNEUMOVAX) 2020-06-15 00:00:00 Completed [facility] Influenza Virus Vaccine Quad .5 mL IM 6+ MO 2020-06-15 00:00:00 Completed [facility] Pneumococcal Polysaccharide, PPSV23 (PNEUMOVAX) 2020-06-15 00:00:00 Completed [facility] Influenza Virus Vaccine Quad .5 mL IM 6+ MO 2020-06-15 00:00:00 Completed [facility] Pneumococcal Polysaccharide, PPSV23 (PNEUMOVAX) 2020-06-15 00:00:00 Completed [facility] Influenza Virus Vaccine Quad .5 mL IM 6+ MO 2020-06-15 00:00:00 Completed [facility] Pneumococcal Polysaccharide, PPSV23 (PNEUMOVAX) 2020-06-15 00:00:00 Completed [facility] Influenza Virus Vaccine Quad .5 mL IM 6+ MO 2020-06-15 00:00:00 Completed [facility] Pneumococcal Polysaccharide, PPSV23 (PNEUMOVAX) 2020-06-15 00:00:00 Completed [facility] Influenza Virus Vaccine Quad .5 mL IM 6+ MO 2020-06-15 00:00:00 Completed [facility] Pneumococcal Polysaccharide, PPSV23 (PNEUMOVAX) 2020-06-15 00:00:00 Completed [facility] Influenza Virus Vaccine Quad .5 mL IM 6+ MO (FLUZONE/FLULAVAL/F LUARIX) 2020-06-15 00:00:00 Completed [facility] Pneumococcal Polysaccharide, PPSV23 (PNEUMOVAX) 2020-06-15 00:00:00 Completed [facility] Influenza Virus Vaccine Quad .5 mL IM 6+ MO (FLUZONE/FLULAVAL/F LUARIX) 2020-06-15 00:00:00 Completed [facility] Pneumococcal Polysaccharide, PPSV23 (PNEUMOVAX) 2020-06-15 00:00:00 Completed [facility] Influenza Virus Vaccine Quad .5 mL IM 6+ MO (FLUZONE/FLULAVAL/F LUARIX) 2020-06-15 00:00:00 Completed [facility] Pneumococcal Polysaccharide, PPSV23 (PNEUMOVAX) 2020-06-15 00:00:00 Completed [facility] Influenza Virus Vaccine Quad .5 mL IM 6+ MO (FLUZONE/FLULAVAL/F LUARIX) 2020-06-15 00:00:00 Completed [facility] Pneumococcal Polysaccharide, PPSV23 (PNEUMOVAX) 2020-06-15 00:00:00 Completed [facility] Influenza Virus Vaccine Quad .5 mL IM 6+ MO (FLUZONE/FLULAVAL/F LUARIX) 2020-06-15 00:00:00 Completed [facility] Pneumococcal Polysaccharide, PPSV23 (PNEUMOVAX) 2020-06-15 00:00:00 Completed Influenza Virus Vaccine Quad .5 mL IM 6+ MO (FLUZONE/FLULAVAL/F LUARIX) 2020-06-15 00:00:00 Completed Pneumococcal Polysaccharide, PPSV23 (PNEUMOVAX) Unknown Completed [facility] Influenza Virus Vaccine Quad .5 mL IM 6+ MO (FLUZONE/FLULAVAL/F LUARIX) Unknown Completed [facility] SARS-COV-2 COVID-19 MODERNA 12+ YRS VACCINE Unknown Completed [facility] SARS-COV-2 COVID-19 MODERNA 0.25ML BOOSTER VACCINE Unknown Completed [facility] Influenza Virus Vaccine Recomb Quad IM, Preserv and ABX Free 18-64 YRS Unknown Completed [facility] Pneumococcal Polysaccharide, PPSV23 (PNEUMOVAX) Unknown Completed [facility] Influenza Virus Vaccine Quad .5 mL IM 6+ MO (FLUZONE/FLULAVAL/F LUARIX) Unknown Completed [facility] SARS-COV-2 COVID-19 MODERNA 12+ YRS VACCINE Unknown Completed [facility] SARS-COV-2 COVID-19 MODERNA 0.25ML BOOSTER VACCINE Unknown Completed [facility] Influenza Virus Vaccine Recomb Quad IM, Preserv and ABX Free 18-64 YRS Unknown Completed [facility] Pneumococcal Polysaccharide, PPSV23 (PNEUMOVAX) Unknown Completed [facility] Influenza Virus Vaccine Quad .5 mL IM 6+ MO (FLUZONE/FLULAVAL/F LUARIX) Unknown Completed [facility] SARS-COV-2 COVID-19 MODERNA 12+ YRS VACCINE Unknown Completed [facility] SARS-COV-2 COVID-19 MODERNA 0.25ML BOOSTER VACCINE Unknown Completed [facility] Influenza Virus Vaccine Recomb Quad IM, Preserv and ABX Free 18-64 YRS Unknown Completed [facility] Pneumococcal Polysaccharide, PPSV23 (PNEUMOVAX) Unknown Completed [facility] Influenza Virus Vaccine Quad .5 mL IM 6+ MO (FLUZONE/FLULAVAL/F LUARIX) Unknown Completed [facility] SARS-COV-2 COVID-19 MODERNA 12+ YRS VACCINE Unknown Completed [facility] SARS-COV-2 COVID-19 MODERNA 0.25ML BOOSTER VACCINE Unknown Completed [facility] Influenza Virus Vaccine Recomb Quad IM, Preserv and ABX Free 18-64 YRS Unknown Completed [facility] Pneumococcal Polysaccharide, PPSV23 (PNEUMOVAX) Unknown Completed [facility] Influenza Virus Vaccine Quad .5 mL IM 6+ MO (FLUZONE/FLULAVAL/F LUARIX) Unknown Completed [facility] SARS-COV-2 COVID-19 MODERNA 12+ YRS VACCINE Unknown Completed [facility] SARS-COV-2 COVID-19 MODERNA 0.25ML BOOSTER VACCINE Unknown Completed [facility] Influenza Virus Vaccine Recomb Quad IM, Preserv and ABX Free 18-64 YRS Unknown Completed [facility] Pneumococcal Polysaccharide, PPSV23 (PNEUMOVAX) Unknown Completed [facility] Influenza Virus Vaccine Quad .5 mL IM 6+ MO (FLUZONE/FLULAVAL/F LUARIX) Unknown Completed [facility] SARS-COV-2 COVID-19 MODERNA 12+ YRS VACCINE Unknown Completed [facility] SARS-COV-2 COVID-19 MODERNA 0.25ML BOOSTER VACCINE Unknown Completed [facility] Pneumococcal Polysaccharide, PPSV23 (PNEUMOVAX) Unknown Completed [facility] Influenza Virus Vaccine Quad .5 mL IM 6+ MO (FLUZONE/FLULAVAL/F LUARIX) Unknown Completed [facility] SARS-COV-2 COVID-19 MODERNA 12+ YRS VACCINE Unknown Completed [facility] SARS-COV-2 COVID-19 MODERNA 0.25ML BOOSTER VACCINE Unknown Completed [facility] Influenza Virus Vaccine Recomb Quad IM, Preserv and ABX Free 18-64 YRS Unknown Completed [facility] Pneumococcal Polysaccharide, PPSV23 (PNEUMOVAX) Unknown Completed [facility] Influenza Virus Vaccine Quad .5 mL IM 6+ MO (FLUZONE/FLULAVAL/F LUARIX) Unknown Completed [facility] SARS-COV-2 COVID-19 MODERNA 12+ YRS VACCINE Unknown Completed [facility] SARS-COV-2 COVID-19 MODERNA 0.25ML BOOSTER VACCINE Unknown Completed [facility] Influenza Virus Vaccine Recomb Quad IM, Preserv and ABX Free 18-64 YRS Unknown Completed [facility] Pneumococcal Polysaccharide, PPSV23 (PNEUMOVAX) Unknown Completed [facility] Influenza Virus Vaccine Quad .5 mL IM 6+ MO (FLUZONE/FLULAVAL/F LUARIX) Unknown Completed [facility] SARS-COV-2 COVID-19 MODERNA 12+ YRS VACCINE Unknown Completed [facility] SARS-COV-2 COVID-19 MODERNA 0.25ML BOOSTER VACCINE Unknown Completed [facility] Influenza Virus Vaccine Recomb Quad IM, Preserv and ABX Free 18-64 YRS Unknown Completed [facility] Pneumococcal Polysaccharide, PPSV23 (PNEUMOVAX) Unknown Completed [facility] Influenza Virus Vaccine Quad .5 mL IM 6+ MO (FLUZONE/FLULAVAL/F LUARIX) Unknown Completed [facility] SARS-COV-2 COVID-19 MODERNA 12+ YRS VACCINE Unknown Completed [facility] SARS-COV-2 COVID-19 MODERNA 0.25ML BOOSTER VACCINE Unknown Completed [facility] Influenza Virus Vaccine Recomb Quad IM, Preserv and ABX Free 18-64 YRS Unknown Completed [facility] Pneumococcal Polysaccharide, PPSV23 (PNEUMOVAX) Unknown Completed [facility] Influenza Virus Vaccine Quad .5 mL IM 6+ MO (FLUZONE/FLULAVAL/F LUARIX) Unknown Completed [facility] SARS-COV-2 COVID-19 MODERNA 12+ YRS VACCINE Unknown Completed [facility] SARS-COV-2 COVID-19 MODERNA 0.25ML BOOSTER VACCINE Unknown Completed [facility] Influenza Virus Vaccine Recomb Quad IM, Preserv and ABX Free 18-64 YRS Unknown Completed [facility] Pneumococcal Polysaccharide, PPSV23 (PNEUMOVAX) Unknown Completed [facility] Influenza Virus Vaccine Quad .5 mL IM 6+ MO (FLUZONE/FLULAVAL/F LUARIX) Unknown Completed [facility] SARS-COV-2 COVID-19 MODERNA 12+ YRS VACCINE Unknown Completed [facility] SARS-COV-2 COVID-19 MODERNA 0.25ML BOOSTER VACCINE Unknown Completed [facility] Influenza Virus Vaccine Recomb Quad IM, Preserv and ABX Free 18-64 YRS Unknown Completed [facility] Pneumococcal Polysaccharide, PPSV23 (PNEUMOVAX) Unknown Completed [facility] Influenza Virus Vaccine Quad .5 mL IM 6+ MO (FLUZONE/FLULAVAL/F LUARIX) Unknown Completed [facility] SARS-COV-2 COVID-19 MODERNA 12+ YRS VACCINE Unknown Completed [facility] SARS-COV-2 COVID-19 MODERNA 0.25ML BOOSTER VACCINE Unknown Completed [facility] Influenza Virus Vaccine Recomb Quad IM, Preserv and ABX Free 18-64 YRS Unknown Completed [facility] Pneumococcal Polysaccharide, PPSV23 (PNEUMOVAX) Unknown Completed [facility] Influenza Virus Vaccine Quad .5 mL IM 6+ MO (FLUZONE/FLULAVAL/F LUARIX) Unknown Completed [facility] SARS-COV-2 COVID-19 MODERNA 12+ YRS VACCINE Unknown Completed [facility] SARS-COV-2 COVID-19 MODERNA 0.25ML BOOSTER VACCINE Unknown Completed [facility] Influenza Virus Vaccine Recomb Quad IM, Preserv and ABX Free 18-64 YRS Unknown Completed [facility] Pneumococcal Polysaccharide, PPSV23 (PNEUMOVAX) Unknown Completed [facility] Influenza Virus Vaccine Quad .5 mL IM 6+ MO (FLUZONE/FLULAVAL/F LUARIX) Unknown Completed [facility] SARS-COV-2 COVID-19 MODERNA 12+ YRS VACCINE Unknown Completed [facility] SARS-COV-2 COVID-19 MODERNA 0.25ML BOOSTER VACCINE Unknown Completed [facility] Influenza Virus Vaccine Recomb Quad IM, Preserv and ABX Free 18-64 YRS Unknown Completed [facility] Pneumococcal Polysaccharide, PPSV23 (PNEUMOVAX) Unknown Completed [facility] Influenza Virus Vaccine Quad .5 mL IM 6+ MO (FLUZONE/FLULAVAL/F LUARIX) Unknown Completed [facility] SARS-COV-2 COVID-19 MODERNA 12+ YRS VACCINE Unknown Completed [facility] SARS-COV-2 COVID-19 MODERNA 0.25ML BOOSTER VACCINE Unknown Completed [facility] Influenza Virus Vaccine Recomb Quad IM, Preserv and ABX Free 18-64 YRS Unknown Completed [facility] Pneumococcal Polysaccharide, PPSV23 (PNEUMOVAX) Unknown Completed [facility] Influenza Virus Vaccine Quad .5 mL IM 6+ MO (FLUZONE/FLULAVAL/F LUARIX) Unknown Completed [facility] SARS-COV-2 COVID-19 MODERNA 12+ YRS VACCINE Unknown Completed [facility] SARS-COV-2 COVID-19 MODERNA 0.25ML BOOSTER VACCINE Unknown Completed [facility] Influenza Virus Vaccine Recomb Quad IM, Preserv and ABX Free 18-64 YRS Unknown Completed [facility] Pneumococcal Polysaccharide, PPSV23 (PNEUMOVAX) Unknown Completed [facility] Influenza Virus Vaccine Quad .5 mL IM 6+ MO (FLUZONE/FLULAVAL/F LUARIX) Unknown Completed [facility] SARS-COV-2 COVID-19 MODERNA 12+ YRS VACCINE Unknown Completed [facility] SARS-COV-2 COVID-19 MODERNA 0.25ML BOOSTER VACCINE Unknown Completed [facility] Influenza Virus Vaccine Recomb Quad IM, Preserv and ABX Free 18-64 YRS Unknown Completed [facility] Pneumococcal Polysaccharide, PPSV23 (PNEUMOVAX) Unknown Completed [facility] Influenza Virus Vaccine Quad .5 mL IM 6+ MO (FLUZONE/FLULAVAL/F LUARIX) Unknown Completed [facility] SARS-COV-2 COVID-19 MODERNA 12+ YRS VACCINE Unknown Completed [facility] SARS-COV-2 COVID-19 MODERNA 0.25ML BOOSTER VACCINE Unknown Completed [facility] Influenza Virus Vaccine Recomb Quad IM, Preserv and ABX Free 18-64 YRS Unknown Completed [facility] Pneumococcal Polysaccharide, PPSV23 (PNEUMOVAX) Unknown Completed [facility] Influenza Virus Vaccine Quad .5 mL IM 6+ MO (FLUZONE/FLULAVAL/F LUARIX) Unknown Completed [facility] SARS-COV-2 COVID-19 MODERNA 12+ YRS VACCINE Unknown Completed [facility] SARS-COV-2 COVID-19 MODERNA 0.25ML BOOSTER VACCINE Unknown Completed [facility] Influenza Virus Vaccine Recomb Quad IM, Preserv and ABX Free 18-64 YRS Unknown Completed [facility] Pneumococcal Polysaccharide, PPSV23 (PNEUMOVAX) Unknown Completed [facility] Influenza Virus Vaccine Quad .5 mL IM 6+ MO (FLUZONE/FLULAVAL/F LUARIX) Unknown Completed [facility] SARS-COV-2 COVID-19 MODERNA 12+ YRS VACCINE Unknown Completed [facility] SARS-COV-2 COVID-19 MODERNA 0.25ML BOOSTER VACCINE Unknown Completed [facility] Influenza Virus Vaccine Recomb Quad IM, Preserv and ABX Free 18-64 YRS Unknown Completed [facility] Pneumococcal Polysaccharide, PPSV23 (PNEUMOVAX) Unknown Completed [facility] Influenza Virus Vaccine Quad .5 mL IM 6+ MO (FLUZONE/FLULAVAL/F LUARIX) Unknown Completed [facility] SARS-COV-2 COVID-19 MODERNA 12+ YRS VACCINE Unknown Completed [facility] SARS-COV-2 COVID-19 MODERNA 0.25ML BOOSTER VACCINE Unknown Completed [facility] Influenza Virus Vaccine Recomb Quad IM, Preserv and ABX Free 18-64 YRS Unknown Completed [facility] Pneumococcal Polysaccharide, PPSV23 (PNEUMOVAX) Unknown Completed [facility] Influenza Virus Vaccine Quad .5 mL IM 6+ MO (FLUZONE/FLULAVAL/F LUARIX) Unknown Completed [facility] SARS-COV-2 COVID-19 MODERNA 12+ YRS VACCINE Unknown Completed [facility] SARS-COV-2 COVID-19 MODERNA 0.25ML BOOSTER VACCINE Unknown Completed [facility] Influenza Virus Vaccine Recomb Quad IM, Preserv and ABX Free 18-64 YRS Unknown Completed [facility] Pneumococcal Polysaccharide, PPSV23 (PNEUMOVAX) Unknown Completed [facility] Influenza Virus Vaccine Quad .5 mL IM 6+ MO (FLUZONE/FLULAVAL/F LUARIX) Unknown Completed [facility] SARS-COV-2 COVID-19 MODERNA 12+ YRS VACCINE Unknown Completed [facility] SARS-COV-2 COVID-19 MODERNA 0.25ML BOOSTER VACCINE Unknown Completed [facility] Influenza Virus Vaccine Recomb Quad IM, Preserv and ABX Free 18-64 YRS Unknown Completed [facility] Pneumococcal Polysaccharide, PPSV23 (PNEUMOVAX) Unknown Completed [facility] Influenza Virus Vaccine Quad .5 mL IM 6+ MO (FLUZONE/FLULAVAL/F LUARIX) Unknown Completed [facility] SARS-COV-2 COVID-19 MODERNA 12+ YRS VACCINE Unknown Completed [facility] SARS-COV-2 COVID-19 MODERNA 0.25ML BOOSTER VACCINE Unknown Completed [facility] Influenza Virus Vaccine Recomb Quad IM, Preserv and ABX Free 18-64 YRS Unknown Completed [facility] Pneumococcal Polysaccharide, PPSV23 (PNEUMOVAX) Unknown Completed [facility] Influenza Virus Vaccine Quad .5 mL IM 6+ MO (FLUZONE/FLULAVAL/F LUARIX) Unknown Completed [facility] SARS-COV-2 COVID-19 MODERNA 12+ YRS VACCINE Unknown Completed [facility] SARS-COV-2 COVID-19 MODERNA 0.25ML BOOSTER VACCINE Unknown Completed [facility] Influenza Virus Vaccine Recomb Quad IM, Preserv and ABX Free 18-64 YRS Unknown Completed [facility] Pneumococcal Polysaccharide, PPSV23 (PNEUMOVAX) Unknown Completed [facility] Influenza Virus Vaccine Quad .5 mL IM 6+ MO (FLUZONE/FLULAVAL/F LUARIX) Unknown Completed [facility] SARS-COV-2 COVID-19 MODERNA 0.25ML BOOSTER VACCINE Unknown Completed [facility] Influenza Virus Vaccine Recomb Quad IM, Preserv and ABX Free 18-64 YRS Unknown Completed [facility] Influenza Virus Vaccine Quad IM, Preserv and ABX Free 6 MO-64 YRS (FLUCELVAX) Unknown Completed [facility] Pneumococcal 20 Conjugate, PCV20 (Prevnar 20) Unknown Completed [facility] SARS-COV-2 COVID-19 MODERNA 12+ YRS VACCINE Unknown Completed [facility] Pneumococcal Polysaccharide, PPSV23 (PNEUMOVAX) Unknown Completed [facility] Influenza Virus Vaccine Quad .5 mL IM 6+ MO (FLUZONE/FLULAVAL/F LUARIX) Unknown Completed [facility] SARS-COV-2 COVID-19 MODERNA 12+ YRS VACCINE Unknown Completed [facility] SARS-COV-2 COVID-19 MODERNA 0.25ML BOOSTER VACCINE Unknown Completed [facility] Influenza Virus Vaccine Recomb Quad IM, Preserv and ABX Free 18-64 YRS Unknown Completed [facility] Influenza Virus Vaccine Quad IM, Preserv and ABX Free 6 MO-64 YRS (FLUCELVAX) Unknown Completed [facility] Pneumococcal 20 Conjugate, PCV20 (Prevnar 20) Unknown Completed [facility] Pneumococcal Polysaccharide, PPSV23 (PNEUMOVAX) Unknown Completed [facility] Influenza Virus Vaccine Quad .5 mL IM 6+ MO (FLUZONE/FLULAVAL/F LUARIX) Unknown Completed [facility] SARS-COV-2 COVID-19 MODERNA 12+ YRS VACCINE Unknown Completed [facility] SARS-COV-2 COVID-19 MODERNA 0.25ML BOOSTER VACCINE Unknown Completed [facility] Influenza Virus Vaccine Recomb Quad IM, Preserv and ABX Free 18-64 YRS Unknown Completed [facility] Influenza Virus Vaccine Quad IM, Preserv and ABX Free 6 MO-64 YRS (FLUCELVAX) Unknown Completed [facility] Pneumococcal 20 Conjugate, PCV20 (Prevnar 20) Unknown Completed [facility] Pneumococcal Polysaccharide, PPSV23 (PNEUMOVAX) Unknown Completed [facility] Influenza Virus Vaccine Quad .5 mL IM 6+ MO (FLUZONE/FLULAVAL/F LUARIX) Unknown Completed [facility] SARS-COV-2 COVID-19 MODERNA 12+ YRS VACCINE Unknown Completed [facility] SARS-COV-2 COVID-19 MODERNA 0.25ML BOOSTER VACCINE Unknown Completed [facility] Influenza Virus Vaccine Recomb Quad IM, Preserv and ABX Free 18-64 YRS Unknown Completed [facility] Influenza Virus Vaccine Quad IM, Preserv and ABX Free 6 MO-64 YRS (FLUCELVAX) Unknown Completed [facility] Pneumococcal 20 Conjugate, PCV20 (Prevnar 20) Unknown Completed [facility] Pneumococcal Polysaccharide, PPSV23 (PNEUMOVAX) Unknown Completed [facility] Influenza Virus Vaccine Quad .5 mL IM 6+ MO (FLUZONE/FLULAVAL/F LUARIX) Unknown Completed [facility] SARS-COV-2 COVID-19 MODERNA 0.25ML BOOSTER VACCINE Unknown Completed [facility] Influenza Virus Vaccine Recomb Quad IM, Preserv and ABX Free 18-64 YRS Unknown Completed [facility] Influenza Virus Vaccine Quad IM, Preserv and ABX Free 6 MO-64 YRS (FLUCELVAX) Unknown Completed [facility] Pneumococcal 20 Conjugate, PCV20 (Prevnar 20) Unknown Completed [facility] SARS-COV-2 COVID-19 MODERNA 12+ YRS VACCINE Unknown Completed [facility] Pneumococcal Polysaccharide, PPSV23 (PNEUMOVAX) Unknown Completed [facility] Influenza Virus Vaccine Quad .5 mL IM 6+ MO (FLUZONE/FLULAVAL/F LUARIX) Unknown Completed [facility] SARS-COV-2 COVID-19 MODERNA 12+ YRS VACCINE Unknown Completed [facility] SARS-COV-2 COVID-19 MODERNA 0.25ML BOOSTER VACCINE Unknown Completed [facility] Influenza Virus Vaccine Recomb Quad IM, Preserv and ABX Free 18-64 YRS Unknown Completed [facility] Influenza Virus Vaccine Quad IM, Preserv and ABX Free 6 MO-64 YRS (FLUCELVAX) Unknown Completed [facility] Pneumococcal 20 Conjugate, PCV20 (Prevnar 20) Unknown Completed [facility] Pneumococcal Polysaccharide, PPSV23 (PNEUMOVAX) Unknown Completed [facility] Influenza Virus Vaccine Quad .5 mL IM 6+ MO (FLUZONE/FLULAVAL/F LUARIX) Unknown Completed [facility] SARS-COV-2 COVID-19 MODERNA 12+ YRS VACCINE Unknown Completed [facility] SARS-COV-2 COVID-19 MODERNA 0.25ML BOOSTER VACCINE Unknown Completed [facility] Influenza Virus Vaccine Recomb Quad IM, Preserv and ABX Free 18-64 YRS Unknown Completed [facility] Influenza Virus Vaccine Quad IM, Preserv and ABX Free 6 MO-64 YRS (FLUCELVAX) Unknown Completed [facility] Pneumococcal 20 Conjugate, PCV20 (Prevnar 20) Unknown Completed [facility] Pneumococcal Polysaccharide, PPSV23 (PNEUMOVAX) Unknown Completed [facility] Influenza Virus Vaccine Quad .5 mL IM 6+ MO (FLUZONE/FLULAVAL/F LUARIX) Unknown Completed [facility] SARS-COV-2 COVID-19 MODERNA 12+ YRS VACCINE Unknown Completed [facility] SARS-COV-2 COVID-19 MODERNA 0.25ML BOOSTER VACCINE Unknown Completed [facility] Influenza Virus Vaccine Recomb Quad IM, Preserv and ABX Free 18-64 YRS Unknown Completed [facility] Influenza Virus Vaccine Quad IM, Preserv and ABX Free 6 MO-64 YRS (FLUCELVAX) Unknown Completed [facility] Pneumococcal 20 Conjugate, PCV20 (Prevnar 20) Unknown Completed [facility] Pneumococcal Polysaccharide, PPSV23 (PNEUMOVAX) Unknown Completed [facility] Influenza Virus Vaccine Quad .5 mL IM 6+ MO (FLUZONE/FLULAVAL/F LUARIX) Unknown Completed [facility] SARS-COV-2 COVID-19 MODERNA 12+ YRS VACCINE Unknown Completed [facility] SARS-COV-2 COVID-19 MODERNA 0.25ML BOOSTER VACCINE Unknown Completed [facility] Influenza Virus Vaccine Recomb Quad IM, Preserv and ABX Free 18-64 YRS Unknown Completed [facility] Influenza Virus Vaccine Quad IM, Preserv and ABX Free 6 MO-64 YRS (FLUCELVAX) Unknown Completed [facility] Pneumococcal 20 Conjugate, PCV20 (Prevnar 20) Unknown Completed [facility] Pneumococcal Polysaccharide, PPSV23 (PNEUMOVAX) Unknown Completed [facility] Influenza Virus Vaccine Quad .5 mL IM 6+ MO (FLUZONE/FLULAVAL/F LUARIX) Unknown Completed [facility] SARS-COV-2 COVID-19 MODERNA 12+ YRS VACCINE Unknown Completed [facility] SARS-COV-2 COVID-19 MODERNA 0.25ML BOOSTER VACCINE Unknown Completed [facility] Influenza Virus Vaccine Recomb Quad IM, Preserv and ABX Free 18-64 YRS Unknown Completed [facility] Influenza Virus Vaccine Quad IM, Preserv and ABX Free 6 MO-64 YRS (FLUCELVAX) Unknown Completed [facility] Pneumococcal 20 Conjugate, PCV20 (Prevnar 20) Unknown Completed [facility] Pneumococcal Polysaccharide, PPSV23 (PNEUMOVAX) Unknown Completed [facility] Influenza Virus Vaccine Quad .5 mL IM 6+ MO (FLUZONE/FLULAVAL/F LUARIX) Unknown Completed [facility] SARS-COV-2 COVID-19 MODERNA 12+ YRS VACCINE Unknown Completed [facility] SARS-COV-2 COVID-19 MODERNA 0.25ML BOOSTER VACCINE Unknown Completed [facility] Influenza Virus Vaccine Recomb Quad IM, Preserv and ABX Free 18-64 YRS Unknown Completed [facility] Influenza Virus Vaccine Quad IM, Preserv and ABX Free 6 MO-64 YRS (FLUCELVAX) Unknown Completed [facility] Pneumococcal 20 Conjugate, PCV20 (Prevnar 20) Unknown Completed [facility] Pneumococcal Polysaccharide, PPSV23 (PNEUMOVAX) Unknown Completed [facility] Influenza Virus Vaccine Quad .5 mL IM 6+ MO (FLUZONE/FLULAVAL/F LUARIX) Unknown Completed [facility] SARS-COV-2 COVID-19 MODERNA 12+ YRS VACCINE Unknown Completed [facility] SARS-COV-2 COVID-19 MODERNA 0.25ML BOOSTER VACCINE Unknown Completed [facility] Influenza Virus Vaccine Recomb Quad IM, Preserv and ABX Free 18-64 YRS Unknown Completed [facility] Influenza Virus Vaccine Quad IM, Preserv and ABX Free 6 MO-64 YRS (FLUCELVAX) Unknown Completed [facility] Pneumococcal 20 Conjugate, PCV20 (Prevnar 20) Unknown Completed [facility] Pneumococcal Polysaccharide, PPSV23 (PNEUMOVAX) Unknown Completed [facility] Influenza Virus Vaccine Quad .5 mL IM 6+ MO (FLUZONE/FLULAVAL/F LUARIX) Unknown Completed [facility] SARS-COV-2 COVID-19 MODERNA 0.25ML BOOSTER VACCINE Unknown Completed [facility] Influenza Virus Vaccine Recomb Quad IM, Preserv and ABX Free 18-64 YRS Unknown Completed [facility] Influenza Virus Vaccine Quad IM, Preserv and ABX Free 6 MO-64 YRS (FLUCELVAX) Unknown Completed [facility] Pneumococcal 20 Conjugate, PCV20 (Prevnar 20) Unknown Completed [facility] SARS-COV-2 COVID-19 MODERNA 12+ YRS VACCINE Unknown Completed [facility] Pneumococcal Polysaccharide, PPSV23 (PNEUMOVAX) Unknown Completed [facility] Influenza Virus Vaccine Quad .5 mL IM 6+ MO (FLUZONE/FLULAVAL/F LUARIX) Unknown Completed [facility] SARS-COV-2 COVID-19 MODERNA 12+ YRS VACCINE Unknown Completed [facility] SARS-COV-2 COVID-19 MODERNA 0.25ML BOOSTER VACCINE Unknown Completed [facility] Influenza Virus Vaccine Recomb Quad IM, Preserv and ABX Free 18-64 YRS Unknown Completed [facility] Influenza Virus Vaccine Quad IM, Preserv and ABX Free 6 MO-64 YRS (FLUCELVAX) Unknown Completed [facility] Pneumococcal 20 Conjugate, PCV20 (Prevnar 20) Unknown Completed [facility] Pneumococcal Polysaccharide, PPSV23 (PNEUMOVAX) Unknown Completed [facility] Influenza Virus Vaccine Quad .5 mL IM 6+ MO (FLUZONE/FLULAVAL/F LUARIX) Unknown Completed [facility] SARS-COV-2 COVID-19 MODERNA 12+ YRS VACCINE Unknown Completed [facility] SARS-COV-2 COVID-19 MODERNA 0.25ML BOOSTER VACCINE Unknown Completed [facility] Influenza Virus Vaccine Recomb Quad IM, Preserv and ABX Free 18-64 YRS Unknown Completed [facility] Influenza Virus Vaccine Quad IM, Preserv and ABX Free 6 MO-64 YRS (FLUCELVAX) Unknown Completed [facility] Pneumococcal 20 Conjugate, PCV20 (Prevnar 20) Unknown Completed [facility] Pneumococcal Polysaccharide, PPSV23 (PNEUMOVAX) Unknown Completed [facility] Influenza Virus Vaccine Quad .5 mL IM 6+ MO (FLUZONE/FLULAVAL/F LUARIX) Unknown Completed [facility] SARS-COV-2 COVID-19 MODERNA 12+ YRS VACCINE Unknown Completed [facility] SARS-COV-2 COVID-19 MODERNA 0.25ML BOOSTER VACCINE Unknown Completed [facility] Influenza Virus Vaccine Recomb Quad IM, Preserv and ABX Free 18-64 YRS Unknown Completed [facility] Influenza Virus Vaccine Quad IM, Preserv and ABX Free 6 MO-64 YRS (FLUCELVAX) Unknown Completed [facility] Pneumococcal 20 Conjugate, PCV20 (Prevnar 20) Unknown Completed [facility] Pneumococcal Polysaccharide, PPSV23 (PNEUMOVAX) Unknown Completed [facility] Influenza Virus Vaccine Quad .5 mL IM 6+ MO (FLUZONE/FLULAVAL/F LUARIX) Unknown Completed [facility] SARS-COV-2 COVID-19 MODERNA 12+ YRS VACCINE Unknown Completed [facility] SARS-COV-2 COVID-19 MODERNA 0.25ML BOOSTER VACCINE Unknown Completed [facility] Influenza Virus Vaccine Recomb Quad IM, Preserv and ABX Free 18-64 YRS Unknown Completed [facility] Influenza Virus Vaccine Quad IM, Preserv and ABX Free 6 MO-64 YRS (FLUCELVAX) Unknown Completed [facility] Pneumococcal 20 Conjugate, PCV20 (Prevnar 20) Unknown Completed [facility] Pneumococcal Polysaccharide, PPSV23 (PNEUMOVAX) Unknown Completed [facility] Influenza Virus Vaccine Quad .5 mL IM 6+ MO (FLUZONE/FLULAVAL/F LUARIX) Unknown Completed [facility] SARS-COV-2 COVID-19 MODERNA 12+ YRS VACCINE Unknown Completed [facility] SARS-COV-2 COVID-19 MODERNA 0.25ML BOOSTER VACCINE Unknown Completed [facility] Influenza Virus Vaccine Recomb Quad IM, Preserv and ABX Free 18-64 YRS Unknown Completed [facility] Influenza Virus Vaccine Quad IM, Preserv and ABX Free 6 MO-64 YRS (FLUCELVAX) Unknown Completed [facility] Pneumococcal 20 Conjugate, PCV20 (Prevnar 20) Unknown Completed [facility] Pneumococcal Polysaccharide, PPSV23 (PNEUMOVAX) Unknown Completed [facility] Influenza Virus Vaccine Quad .5 mL IM 6+ MO (FLUZONE/FLULAVAL/F LUARIX) Unknown Completed [facility] SARS-COV-2 COVID-19 MODERNA 12+ YRS VACCINE Unknown Completed [facility] SARS-COV-2 COVID-19 MODERNA 0.25ML BOOSTER VACCINE Unknown Completed [facility] Influenza Virus Vaccine Recomb Quad IM, Preserv and ABX Free 18-64 YRS Unknown Completed [facility] Influenza Virus Vaccine Quad IM, Preserv and ABX Free 6 MO-64 YRS (FLUCELVAX) Unknown Completed [facility] Pneumococcal 20 Conjugate, PCV20 (Prevnar 20) Unknown Completed [facility] Pneumococcal Polysaccharide, PPSV23 (PNEUMOVAX) Unknown Completed [facility] Influenza Virus Vaccine Quad .5 mL IM 6+ MO (FLUZONE/FLULAVAL/F LUARIX) Unknown Completed [facility] SARS-COV-2 COVID-19 MODERNA 12+ YRS VACCINE Unknown Completed [facility] SARS-COV-2 COVID-19 MODERNA 0.25ML BOOSTER VACCINE Unknown Completed [facility] Influenza Virus Vaccine Recomb Quad IM, Preserv and ABX Free 18-64 YRS Unknown Completed [facility] Influenza Virus Vaccine Quad IM, Preserv and ABX Free 6 MO-64 YRS (FLUCELVAX) Unknown Completed [facility] Pneumococcal 20 Conjugate, PCV20 (Prevnar 20) Unknown Completed [facility] Pneumococcal Polysaccharide, PPSV23 (PNEUMOVAX) Unknown Completed [facility] Influenza Virus Vaccine Quad .5 mL IM 6+ MO (FLUZONE/FLULAVAL/F LUARIX) Unknown Completed [facility] SARS-COV-2 COVID-19 MODERNA 12+ YRS VACCINE Unknown Completed [facility] SARS-COV-2 COVID-19 MODERNA 0.25ML BOOSTER VACCINE Unknown Completed [facility] Influenza Virus Vaccine Recomb Quad IM, Preserv and ABX Free 18-64 YRS Unknown Completed [facility] Influenza Virus Vaccine Quad IM, Preserv and ABX Free 6 MO-64 YRS (FLUCELVAX) Unknown Completed [facility] Pneumococcal 20 Conjugate, PCV20 (Prevnar 20) Unknown Completed [facility] Pneumococcal Polysaccharide, PPSV23 (PNEUMOVAX) Unknown Completed [facility] Influenza Virus Vaccine Quad .5 mL IM 6+ MO (FLUZONE/FLULAVAL/F LUARIX) Unknown Completed [facility] SARS-COV-2 COVID-19 MODERNA 12+ YRS VACCINE Unknown Completed [facility] SARS-COV-2 COVID-19 MODERNA 0.25ML BOOSTER VACCINE Unknown Completed [facility] Influenza Virus Vaccine Recomb Quad IM, Preserv and ABX Free 18-64 YRS Unknown Completed [facility] Influenza Virus Vaccine Quad IM, Preserv and ABX Free 6 MO-64 YRS (FLUCELVAX) Unknown Completed [facility] Pneumococcal 20 Conjugate, PCV20 (Prevnar 20) Unknown Completed [facility] Pneumococcal Polysaccharide, PPSV23 (PNEUMOVAX) Unknown Completed [facility] Influenza Virus Vaccine Quad .5 mL IM 6+ MO (FLUZONE/FLULAVAL/F LUARIX) Unknown Completed [facility] SARS-COV-2 COVID-19 MODERNA 12+ YRS VACCINE Unknown Completed [facility] SARS-COV-2 COVID-19 MODERNA 0.25ML BOOSTER VACCINE Unknown Completed [facility] Influenza Virus Vaccine Recomb Quad IM, Preserv and ABX Free 18-64 YRS Unknown Completed [facility] Influenza Virus Vaccine Quad IM, Preserv and ABX Free 6 MO-64 YRS (FLUCELVAX) Unknown Completed [facility] Pneumococcal 20 Conjugate, PCV20 (Prevnar 20) Unknown Completed [facility] Pneumococcal Polysaccharide, PPSV23 (PNEUMOVAX) Unknown Completed [facility] Influenza Virus Vaccine Quad .5 mL IM 6+ MO (FLUZONE/FLULAVAL/F LUARIX) Unknown Completed [facility] SARS-COV-2 COVID-19 MODERNA 12+ YRS VACCINE Unknown Completed [facility] SARS-COV-2 COVID-19 MODERNA 0.25ML BOOSTER VACCINE Unknown Completed [facility] Influenza Virus Vaccine Recomb Quad IM, Preserv and ABX Free 18-64 YRS Unknown Completed [facility] Influenza Virus Vaccine Quad IM, Preserv and ABX Free 6 MO-64 YRS (FLUCELVAX) Unknown Completed [facility] Pneumococcal 20 Conjugate, PCV20 (Prevnar 20) Unknown Completed [facility] Pneumococcal Polysaccharide, PPSV23 (PNEUMOVAX) Unknown Completed [facility] Influenza Virus Vaccine Quad .5 mL IM 6+ MO (FLUZONE/FLULAVAL/F LUARIX) Unknown Completed [facility] SARS-COV-2 COVID-19 MODERNA 12+ YRS VACCINE Unknown Completed [facility] SARS-COV-2 COVID-19 MODERNA 0.25ML BOOSTER VACCINE Unknown Completed [facility] Influenza Virus Vaccine Recomb Quad IM, Preserv and ABX Free 18-64 YRS Unknown Completed [facility] Influenza Virus Vaccine Quad IM, Preserv and ABX Free 6 MO-64 YRS (FLUCELVAX) Unknown Completed [facility] Pneumococcal 20 Conjugate, PCV20 (Prevnar 20) Unknown Completed [facility] Pneumococcal Polysaccharide, PPSV23 (PNEUMOVAX) Unknown Completed [facility] Influenza Virus Vaccine Quad .5 mL IM 6+ MO (FLUZONE/FLULAVAL/F LUARIX) Unknown Completed [facility] SARS-COV-2 COVID-19 MODERNA 12+ YRS VACCINE Unknown Completed [facility] SARS-COV-2 COVID-19 MODERNA 0.25ML BOOSTER VACCINE Unknown Completed [facility] Influenza Virus Vaccine Recomb Quad IM, Preserv and ABX Free 18-64 YRS Unknown Completed [facility] Influenza Virus Vaccine Quad IM, Preserv and ABX Free 6 MO-64 YRS (FLUCELVAX) Unknown Completed [facility] Pneumococcal 20 Conjugate, PCV20 (Prevnar 20) Unknown Completed [facility] Pneumococcal Polysaccharide, PPSV23 (PNEUMOVAX) Unknown Completed [facility] Influenza Virus Vaccine Quad .5 mL IM 6+ MO (FLUZONE/FLULAVAL/F LUARIX) Unknown Completed [facility] SARS-COV-2 COVID-19 MODERNA 12+ YRS VACCINE Unknown Completed [facility] SARS-COV-2 COVID-19 MODERNA 0.25ML BOOSTER VACCINE Unknown Completed [facility] Influenza Virus Vaccine Recomb Quad IM, Preserv and ABX Free 18-64 YRS Unknown Completed [facility] Influenza Virus Vaccine Quad IM, Preserv and ABX Free 6 MO-64 YRS (FLUCELVAX) Unknown Completed [facility] Pneumococcal 20 Conjugate, PCV20 (Prevnar 20) Unknown Completed [facility] Pneumococcal Polysaccharide, PPSV23 (PNEUMOVAX) Unknown Completed [facility] Influenza Virus Vaccine Quad .5 mL IM 6+ MO (FLUZONE/FLULAVAL/F LUARIX) Unknown Completed [facility] SARS-COV-2 COVID-19 MODERNA 12+ YRS VACCINE Unknown Completed [facility] SARS-COV-2 COVID-19 MODERNA 0.25ML BOOSTER VACCINE Unknown Completed [facility] Influenza Virus Vaccine Recomb Quad IM, Preserv and ABX Free 18-64 YRS Unknown Completed [facility] Influenza Virus Vaccine Quad IM, Preserv and ABX Free 6 MO-64 YRS (FLUCELVAX) Unknown Completed [facility] Pneumococcal 20 Conjugate, PCV20 (Prevnar 20) Unknown Completed [facility] Pneumococcal Polysaccharide, PPSV23 (PNEUMOVAX) Unknown Completed [facility] Influenza Virus Vaccine Quad .5 mL IM 6+ MO (FLUZONE/FLULAVAL/F LUARIX) Unknown Completed [facility] SARS-COV-2 COVID-19 MODERNA 12+ YRS VACCINE Unknown Completed [facility] SARS-COV-2 COVID-19 MODERNA 0.25ML BOOSTER VACCINE Unknown Completed [facility] Influenza Virus Vaccine Recomb Quad IM, Preserv and ABX Free 18-64 YRS Unknown Completed [facility] Influenza Virus Vaccine Quad IM, Preserv and ABX Free 6 MO-64 YRS (FLUCELVAX) Unknown Completed [facility] Pneumococcal 20 Conjugate, PCV20 (Prevnar 20) Unknown Completed [facility] Pneumococcal Polysaccharide, PPSV23 (PNEUMOVAX) Unknown Completed [facility] Influenza Virus Vaccine Quad .5 mL IM 6+ MO (FLUZONE/FLULAVAL/F LUARIX) Unknown Completed [facility] SARS-COV-2 COVID-19 MODERNA 12+ YRS VACCINE Unknown Completed [facility] SARS-COV-2 COVID-19 MODERNA 0.25ML BOOSTER VACCINE Unknown Completed [facility] Influenza Virus Vaccine Recomb Quad IM, Preserv and ABX Free 18-64 YRS Unknown Completed [facility] Influenza Virus Vaccine Quad IM, Preserv and ABX Free 6 MO-64 YRS (FLUCELVAX) Unknown Completed [facility] Pneumococcal 20 Conjugate, PCV20 (Prevnar 20) Unknown Completed [facility] Pneumococcal Polysaccharide, PPSV23 (PNEUMOVAX) Unknown Completed [facility] Influenza Virus Vaccine Quad .5 mL IM 6+ MO (FLUZONE/FLULAVAL/F LUARIX) Unknown Completed [facility] SARS-COV-2 COVID-19 MODERNA 0.25ML BOOSTER VACCINE Unknown Completed [facility] Influenza Virus Vaccine Recomb Quad IM, Preserv and ABX Free 18-64 YRS Unknown Completed [facility] Influenza Virus Vaccine Quad IM, Preserv and ABX Free 6 MO-64 YRS (FLUCELVAX) Unknown Completed [facility] Pneumococcal 20 Conjugate, PCV20 (Prevnar 20) Unknown Completed [facility] Pneumococcal Polysaccharide, PPSV23 (PNEUMOVAX) Unknown Completed [facility] Influenza Virus Vaccine Quad .5 mL IM 6+ MO (FLUZONE/FLULAVAL/F LUARIX) Unknown Completed [facility] SARS-COV-2 COVID-19 MODERNA 12+ YRS VACCINE Unknown Completed [facility] SARS-COV-2 COVID-19 MODERNA 0.25ML BOOSTER VACCINE Unknown Completed [facility] Influenza Virus Vaccine Recomb Quad IM, Preserv and ABX Free 18-64 YRS Unknown Completed [facility] Influenza Virus Vaccine Quad IM, Preserv and ABX Free 6 MO-64 YRS (FLUCELVAX) Unknown Completed [facility] Pneumococcal 20 Conjugate, PCV20 (Prevnar 20) Unknown Completed [facility] SARS-COV-2 COVID-19 MODERNA 12+ YRS VACCINE Unknown Completed [facility] Pneumococcal Polysaccharide, PPSV23 (PNEUMOVAX) Unknown Completed [facility] Influenza Virus Vaccine Quad .5 mL IM 6+ MO (FLUZONE/FLULAVAL/F LUARIX) Unknown Completed [facility] SARS-COV-2 COVID-19 MODERNA 12+ YRS VACCINE Unknown Completed [facility] SARS-COV-2 COVID-19 MODERNA 0.25ML BOOSTER VACCINE Unknown Completed [facility] Influenza Virus Vaccine Recomb Quad IM, Preserv and ABX Free 18-64 YRS Unknown Completed [facility] Influenza Virus Vaccine Quad IM, Preserv and ABX Free 6 MO-64 YRS (FLUCELVAX) Unknown Completed [facility] Pneumococcal 20 Conjugate, PCV20 (Prevnar 20) Unknown Completed [facility] Pneumococcal Polysaccharide, PPSV23 (PNEUMOVAX) Unknown Completed [facility] Influenza Virus Vaccine Quad .5 mL IM 6+ MO (FLUZONE/FLULAVAL/F LUARIX) Unknown Completed [facility] SARS-COV-2 COVID-19 MODERNA 12+ YRS VACCINE Unknown Completed [facility] SARS-COV-2 COVID-19 MODERNA 0.25ML BOOSTER VACCINE Unknown Completed [facility] Influenza Virus Vaccine Recomb Quad IM, Preserv and ABX Free 18-64 YRS Unknown Completed [facility] Influenza Virus Vaccine Quad IM, Preserv and ABX Free 6 MO-64 YRS (FLUCELVAX) Unknown Completed [facility] Pneumococcal 20 Conjugate, PCV20 (Prevnar 20) Unknown Completed [facility] Pneumococcal Polysaccharide, PPSV23 (PNEUMOVAX) Unknown Completed [facility] Influenza Virus Vaccine Quad .5 mL IM 6+ MO (FLUZONE/FLULAVAL/F LUARIX) Unknown Completed [facility] SARS-COV-2 COVID-19 MODERNA 12+ YRS VACCINE Unknown Completed [facility] SARS-COV-2 COVID-19 MODERNA 0.25ML BOOSTER VACCINE Unknown Completed [facility] Influenza Virus Vaccine Recomb Quad IM, Preserv and ABX Free 18-64 YRS Unknown Completed [facility] Influenza Virus Vaccine Quad IM, Preserv and ABX Free 6 MO-64 YRS (FLUCELVAX) Unknown Completed [facility] Pneumococcal 20 Conjugate, PCV20 (Prevnar 20) Unknown Completed [facility] Pneumococcal Polysaccharide, PPSV23 (PNEUMOVAX) Unknown Completed [facility] Influenza Virus Vaccine Quad .5 mL IM 6+ MO (FLUZONE/FLULAVAL/F LUARIX) Unknown Completed [facility] SARS-COV-2 COVID-19 MODERNA 12+ YRS VACCINE Unknown Completed [facility] SARS-COV-2 COVID-19 MODERNA 0.25ML BOOSTER VACCINE Unknown Completed [facility] Influenza Virus Vaccine Recomb Quad IM, Preserv and ABX Free 18-64 YRS Unknown Completed [facility] Influenza Virus Vaccine Quad IM, Preserv and ABX Free 6 MO-64 YRS (FLUCELVAX) Unknown Completed [facility] Pneumococcal 20 Conjugate, PCV20 (Prevnar 20) Unknown Completed [facility] Pneumococcal Polysaccharide, PPSV23 (PNEUMOVAX) Unknown Completed [facility] Influenza Virus Vaccine Quad .5 mL IM 6+ MO (FLUZONE/FLULAVAL/F LUARIX) Unknown Completed [facility] SARS-COV-2 COVID-19 MODERNA 12+ YRS VACCINE Unknown Completed [facility] SARS-COV-2 COVID-19 MODERNA 0.25ML BOOSTER VACCINE Unknown Completed [facility] Influenza Virus Vaccine Recomb Quad IM, Preserv and ABX Free 18-64 YRS Unknown Completed [facility] Influenza Virus Vaccine Quad IM, Preserv and ABX Free 6 MO-64 YRS (FLUCELVAX) Unknown Completed [facility] Pneumococcal 20 Conjugate, PCV20 (Prevnar 20) Unknown Completed [facility] Pneumococcal Polysaccharide, PPSV23 (PNEUMOVAX) Unknown Completed [facility] Influenza Virus Vaccine Quad .5 mL IM 6+ MO (FLUZONE/FLULAVAL/F LUARIX) Unknown Completed [facility] SARS-COV-2 COVID-19 MODERNA 0.25ML BOOSTER VACCINE Unknown Completed [facility] Influenza Virus Vaccine Recomb Quad IM, Preserv and ABX Free 18-64 YRS Unknown Completed [facility] Influenza Virus Vaccine Quad IM, Preserv and ABX Free 6 MO-64 YRS (FLUCELVAX) Unknown Completed [facility] Pneumococcal 20 Conjugate, PCV20 (Prevnar 20) Unknown Completed [facility] SARS-COV-2 COVID-19 MODERNA 12+ YRS VACCINE Unknown Completed [facility] Pneumococcal Polysaccharide, PPSV23 (PNEUMOVAX) Unknown Completed [facility] Influenza Virus Vaccine Quad .5 mL IM 6+ MO (FLUZONE/FLULAVAL/F LUARIX) Unknown Completed [facility] SARS-COV-2 COVID-19 MODERNA 12+ YRS VACCINE Unknown Completed [facility] SARS-COV-2 COVID-19 MODERNA 0.25ML BOOSTER VACCINE Unknown Completed [facility] Influenza Virus Vaccine Recomb Quad IM, Preserv and ABX Free 18-64 YRS Unknown Completed [facility] Influenza Virus Vaccine Quad IM, Preserv and ABX Free 6 MO-64 YRS (FLUCELVAX) Unknown Completed [facility] Pneumococcal 20 Conjugate, PCV20 (Prevnar 20) Unknown Completed [facility] Pneumococcal Polysaccharide, PPSV23 (PNEUMOVAX) Unknown Completed [facility] Influenza Virus Vaccine Quad .5 mL IM 6+ MO (FLUZONE/FLULAVAL/F LUARIX) Unknown Completed [facility] SARS-COV-2 COVID-19 MODERNA 12+ YRS VACCINE Unknown Completed [facility] SARS-COV-2 COVID-19 MODERNA 0.25ML BOOSTER VACCINE Unknown Completed [facility] Influenza Virus Vaccine Recomb Quad IM, Preserv and ABX Free 18-64 YRS Unknown Completed [facility] Influenza Virus Vaccine Quad IM, Preserv and ABX Free 6 MO-64 YRS (FLUCELVAX) Unknown Completed [facility] Pneumococcal 20 Conjugate, PCV20 (Prevnar 20) Unknown Completed [facility] Pneumococcal Polysaccharide, PPSV23 (PNEUMOVAX) Unknown Completed [facility] Influenza Virus Vaccine Quad .5 mL IM 6+ MO (FLUZONE/FLULAVAL/F LUARIX) Unknown Completed [facility] SARS-COV-2 COVID-19 MODERNA 12+ YRS VACCINE Unknown Completed [facility] SARS-COV-2 COVID-19 MODERNA 0.25ML BOOSTER VACCINE Unknown Completed [facility] Influenza Virus Vaccine Recomb Quad IM, Preserv and ABX Free 18-64 YRS Unknown Completed [facility] Influenza Virus Vaccine Quad IM, Preserv and ABX Free 6 MO-64 YRS (FLUCELVAX) Unknown Completed [facility] Pneumococcal 20 Conjugate, PCV20 (Prevnar 20) Unknown Completed [facility] Pneumococcal Polysaccharide, PPSV23 (PNEUMOVAX) Unknown Completed [facility] Influenza Virus Vaccine Quad .5 mL IM 6+ MO (FLUZONE/FLULAVAL/F LUARIX) Unknown Completed [facility] SARS-COV-2 COVID-19 MODERNA 12+ YRS VACCINE Unknown Completed [facility] SARS-COV-2 COVID-19 MODERNA 0.25ML BOOSTER VACCINE Unknown Completed [facility] Influenza Virus Vaccine Recomb Quad IM, Preserv and ABX Free 18-64 YRS Unknown Completed [facility] Influenza Virus Vaccine Quad IM, Preserv and ABX Free 6 MO-64 YRS (FLUCELVAX) Unknown Completed [facility] Pneumococcal 20 Conjugate, PCV20 (Prevnar 20) Unknown Completed [facility] Pneumococcal Polysaccharide, PPSV23 (PNEUMOVAX) Unknown Completed [facility] Influenza Virus Vaccine Quad .5 mL IM 6+ MO (FLUZONE/FLULAVAL/F LUARIX) Unknown Completed [facility] SARS-COV-2 COVID-19 MODERNA 12+ YRS VACCINE Unknown Completed [facility] SARS-COV-2 COVID-19 MODERNA 0.25ML BOOSTER VACCINE Unknown Completed [facility] Influenza Virus Vaccine Recomb Quad IM, Preserv and ABX Free 18-64 YRS Unknown Completed [facility] Influenza Virus Vaccine Quad IM, Preserv and ABX Free 6 MO-64 YRS (FLUCELVAX) Unknown Completed [facility] Pneumococcal 20 Conjugate, PCV20 (Prevnar 20) Unknown Completed [facility] Pneumococcal Polysaccharide, PPSV23 (PNEUMOVAX) Unknown Completed [facility] Influenza Virus Vaccine Quad .5 mL IM 6+ MO (FLUZONE/FLULAVAL/F LUARIX) Unknown Completed [facility] SARS-COV-2 COVID-19 MODERNA 12+ YRS VACCINE Unknown Completed [facility] SARS-COV-2 COVID-19 MODERNA 0.25ML BOOSTER VACCINE Unknown Completed [facility] Influenza Virus Vaccine Recomb Quad IM, Preserv and ABX Free 18-64 YRS Unknown Completed [facility] Influenza Virus Vaccine Quad IM, Preserv and ABX Free 6 MO-64 YRS (FLUCELVAX) Unknown Completed [facility] Pneumococcal 20 Conjugate, PCV20 (Prevnar 20) Unknown Completed [facility] Pneumococcal Polysaccharide, PPSV23 (PNEUMOVAX) Unknown Completed [facility] Influenza Virus Vaccine Quad .5 mL IM 6+ MO (FLUZONE/FLULAVAL/F LUARIX) Unknown Completed [facility] SARS-COV-2 COVID-19 MODERNA 12+ YRS VACCINE Unknown Completed [facility] SARS-COV-2 COVID-19 MODERNA 0.25ML BOOSTER VACCINE Unknown Completed [facility] Influenza Virus Vaccine Recomb Quad IM, Preserv and ABX Free 18-64 YRS Unknown Completed [facility] Influenza Virus Vaccine Quad IM, Preserv and ABX Free 6 MO-64 YRS (FLUCELVAX) Unknown Completed [facility] Pneumococcal 20 Conjugate, PCV20 (Prevnar 20) Unknown Completed [facility] Pneumococcal Polysaccharide, PPSV23 (PNEUMOVAX) Unknown Completed [facility] Influenza Virus Vaccine Quad .5 mL IM 6+ MO (FLUZONE/FLULAVAL/F LUARIX) Unknown Completed [facility] SARS-COV-2 COVID-19 MODERNA 12+ YRS VACCINE Unknown Completed [facility] SARS-COV-2 COVID-19 MODERNA 0.25ML BOOSTER VACCINE Unknown Completed [facility] Influenza Virus Vaccine Recomb Quad IM, Preserv and ABX Free 18-64 YRS Unknown Completed [facility] Influenza Virus Vaccine Quad IM, Preserv and ABX Free 6 MO-64 YRS (FLUCELVAX) Unknown Completed [facility] Pneumococcal 20 Conjugate, PCV20 (Prevnar 20) Unknown Completed [facility] Pneumococcal Polysaccharide, PPSV23 (PNEUMOVAX) Unknown Completed [facility] Influenza Virus Vaccine Quad .5 mL IM 6+ MO (FLUZONE/FLULAVAL/F LUARIX) Unknown Completed [facility] SARS-COV-2 COVID-19 MODERNA 12+ YRS VACCINE Unknown Completed [facility] SARS-COV-2 COVID-19 MODERNA 0.25ML BOOSTER VACCINE Unknown Completed [facility] Influenza Virus Vaccine Recomb Quad IM, Preserv and ABX Free 18-64 YRS Unknown Completed [facility] Influenza Virus Vaccine Quad IM, Preserv and ABX Free 6 MO-64 YRS (FLUCELVAX) Unknown Completed [facility] Pneumococcal 20 Conjugate, PCV20 (Prevnar 20) Unknown Completed [facility] Pneumococcal Polysaccharide, PPSV23 (PNEUMOVAX) Unknown Completed [facility] Influenza Virus Vaccine Quad .5 mL IM 6+ MO (FLUZONE/FLULAVAL/F LUARIX) Unknown Completed [facility] SARS-COV-2 COVID-19 MODERNA 0.25ML BOOSTER VACCINE Unknown Completed [facility] Influenza Virus Vaccine Recomb Quad IM, Preserv and ABX Free 18-64 YRS Unknown Completed [facility] Influenza Virus Vaccine Quad IM, Preserv and ABX Free 6 MO-64 YRS (FLUCELVAX) Unknown Completed [facility] Pneumococcal 20 Conjugate, PCV20 (Prevnar 20) Unknown Completed [facility] SARS-COV-2 COVID-19 MODERNA 12+ YRS VACCINE Unknown Completed [facility] Pneumococcal Polysaccharide, PPSV23 (PNEUMOVAX) Unknown Completed [facility] Influenza Virus Vaccine Quad .5 mL IM 6+ MO (FLUZONE/FLULAVAL/F LUARIX) Unknown Completed [facility] SARS-COV-2 COVID-19 MODERNA 0.25ML BOOSTER VACCINE Unknown Completed [facility] Influenza Virus Vaccine Recomb Quad IM, Preserv and ABX Free 18-64 YRS Unknown Completed [facility] Influenza Virus Vaccine Quad IM, Preserv and ABX Free 6 MO-64 YRS (FLUCELVAX) Unknown Completed [facility] Pneumococcal 20 Conjugate, PCV20 (Prevnar 20) Unknown Completed [facility] Pneumococcal Polysaccharide, PPSV23 (PNEUMOVAX) Unknown Completed [facility] Influenza Virus Vaccine Quad .5 mL IM 6+ MO (FLUZONE/FLULAVAL/F LUARIX) Unknown Completed [facility] SARS-COV-2 COVID-19 MODERNA 12+ YRS VACCINE Unknown Completed [facility] SARS-COV-2 COVID-19 MODERNA 0.25ML BOOSTER VACCINE Unknown Completed [facility] Influenza Virus Vaccine Recomb Quad IM, Preserv and ABX Free 18-64 YRS Unknown Completed [facility] Influenza Virus Vaccine Quad IM, Preserv and ABX Free 6 MO-64 YRS (FLUCELVAX) Unknown Completed [facility] Pneumococcal 20 Conjugate, PCV20 (Prevnar 20) Unknown Completed [facility] SARS-COV-2 COVID-19 MODERNA 12+ YRS VACCINE Unknown Completed [facility] Pneumococcal Polysaccharide, PPSV23 (PNEUMOVAX) Unknown Completed [facility] Influenza Virus Vaccine Quad .5 mL IM 6+ MO (FLUZONE/FLULAVAL/F LUARIX) Unknown Completed [facility] SARS-COV-2 COVID-19 MODERNA 12+ YRS VACCINE Unknown Completed [facility] SARS-COV-2 COVID-19 MODERNA 0.25ML BOOSTER VACCINE Unknown Completed [facility] Influenza Virus Vaccine Recomb Quad IM, Preserv and ABX Free 18-64 YRS Unknown Completed [facility] Influenza Virus Vaccine Quad IM, Preserv and ABX Free 6 MO-64 YRS (FLUCELVAX) Unknown Completed [facility] Pneumococcal 20 Conjugate, PCV20 (Prevnar 20) Unknown Completed [facility] Pneumococcal Polysaccharide, PPSV23 (PNEUMOVAX) Unknown Completed [facility] Influenza Virus Vaccine Quad .5 mL IM 6+ MO (FLUZONE/FLULAVAL/F LUARIX) Unknown Completed [facility] SARS-COV-2 COVID-19 MODERNA 12+ YRS VACCINE Unknown Completed [facility] SARS-COV-2 COVID-19 MODERNA 0.25ML BOOSTER VACCINE Unknown Completed [facility] Influenza Virus Vaccine Recomb Quad IM, Preserv and ABX Free 18-64 YRS Unknown Completed [facility] Influenza Virus Vaccine Quad IM, Preserv and ABX Free 6 MO-64 YRS (FLUCELVAX) Unknown Completed [facility] Pneumococcal 20 Conjugate, PCV20 (Prevnar 20) Unknown Completed [facility] Pneumococcal Polysaccharide, PPSV23 (PNEUMOVAX) Unknown Completed [facility] Influenza Virus Vaccine Quad .5 mL IM 6+ MO (FLUZONE/FLULAVAL/F LUARIX) Unknown Completed [facility] SARS-COV-2 COVID-19 MODERNA 12+ YRS VACCINE Unknown Completed [facility] SARS-COV-2 COVID-19 MODERNA 0.25ML BOOSTER VACCINE Unknown Completed [facility] Influenza Virus Vaccine Recomb Quad IM, Preserv and ABX Free 18-64 YRS Unknown Completed [facility] Influenza Virus Vaccine Quad IM, Preserv and ABX Free 6 MO-64 YRS (FLUCELVAX) Unknown Completed [facility] Pneumococcal 20 Conjugate, PCV20 (Prevnar 20) Unknown Completed [facility] Pneumococcal Polysaccharide, PPSV23 (PNEUMOVAX) Unknown Completed [facility] Influenza Virus Vaccine Quad .5 mL IM 6+ MO (FLUZONE/FLULAVAL/F LUARIX) Unknown Completed [facility] SARS-COV-2 COVID-19 MODERNA 12+ YRS VACCINE Unknown Completed [facility] SARS-COV-2 COVID-19 MODERNA 0.25ML BOOSTER VACCINE Unknown Completed [facility] Influenza Virus Vaccine Recomb Quad IM, Preserv and ABX Free 18-64 YRS Unknown Completed [facility] Influenza Virus Vaccine Quad IM, Preserv and ABX Free 6 MO-64 YRS (FLUCELVAX) Unknown Completed [facility] Pneumococcal 20 Conjugate, PCV20 (Prevnar 20) Unknown Completed [facility] Pneumococcal Polysaccharide, PPSV23 (PNEUMOVAX) Unknown Completed [facility] Influenza Virus Vaccine Quad .5 mL IM 6+ MO (FLUZONE/FLULAVAL/F LUARIX) Unknown Completed [facility] SARS-COV-2 COVID-19 MODERNA 12+ YRS VACCINE Unknown Completed [facility] SARS-COV-2 COVID-19 MODERNA 0.25ML BOOSTER VACCINE Unknown Completed [facility] Influenza Virus Vaccine Recomb Quad IM, Preserv and ABX Free 18-64 YRS Unknown Completed [facility] Influenza Virus Vaccine Quad IM, Preserv and ABX Free 6 MO-64 YRS (FLUCELVAX) Unknown Completed [facility] Pneumococcal 20 Conjugate, PCV20 (Prevnar 20) Unknown Completed [facility] Pneumococcal Polysaccharide, PPSV23 (PNEUMOVAX) Unknown Completed [facility] Influenza Virus Vaccine Quad .5 mL IM 6+ MO (FLUZONE/FLULAVAL/F LUARIX) Unknown Completed [facility] SARS-COV-2 COVID-19 MODERNA 12+ YRS VACCINE Unknown Completed [facility] SARS-COV-2 COVID-19 MODERNA 0.25ML BOOSTER VACCINE Unknown Completed [facility] Influenza Virus Vaccine Recomb Quad IM, Preserv and ABX Free 18-64 YRS Unknown Completed [facility] Influenza Virus Vaccine Quad IM, Preserv and ABX Free 6 MO-64 YRS (FLUCELVAX) Unknown Completed [facility] Pneumococcal 20 Conjugate, PCV20 (Prevnar 20) Unknown Completed [facility] Pneumococcal Polysaccharide, PPSV23 (PNEUMOVAX) Unknown Completed [facility] Influenza Virus Vaccine Quad .5 mL IM 6+ MO (FLUZONE/FLULAVAL/F LUARIX) Unknown Completed [facility] SARS-COV-2 COVID-19 MODERNA 12+ YRS VACCINE Unknown Completed [facility] SARS-COV-2 COVID-19 MODERNA 0.25ML BOOSTER VACCINE Unknown Completed [facility] Influenza Virus Vaccine Recomb Quad IM, Preserv and ABX Free 18-64 YRS Unknown Completed [facility] Influenza Virus Vaccine Quad IM, Preserv and ABX Free 6 MO-64 YRS (FLUCELVAX) Unknown Completed [facility] Pneumococcal 20 Conjugate, PCV20 (Prevnar 20) Unknown Completed [facility] Pneumococcal Polysaccharide, PPSV23 (PNEUMOVAX) Unknown Completed [facility] Influenza Virus Vaccine Quad .5 mL IM 6+ MO (FLUZONE/FLULAVAL/F LUARIX) Unknown Completed [facility] SARS-COV-2 COVID-19 MODERNA 12+ YRS VACCINE Unknown Completed [facility] SARS-COV-2 COVID-19 MODERNA 0.25ML BOOSTER VACCINE Unknown Completed [facility] Influenza Virus Vaccine Recomb Quad IM, Preserv and ABX Free 18-64 YRS Unknown Completed [facility] Influenza Virus Vaccine Quad IM, Preserv and ABX Free 6 MO-64 YRS (FLUCELVAX) Unknown Completed [facility] Pneumococcal 20 Conjugate, PCV20 (Prevnar 20) Unknown Completed [facility] Pneumococcal Polysaccharide, PPSV23 (PNEUMOVAX) Unknown Completed [facility] Influenza Virus Vaccine Quad .5 mL IM 6+ MO (FLUZONE/FLULAVAL/F LUARIX) Unknown Completed [facility] SARS-COV-2 COVID-19 MODERNA 12+ YRS VACCINE Unknown Completed [facility] SARS-COV-2 COVID-19 MODERNA 0.25ML BOOSTER VACCINE Unknown Completed [facility] Influenza Virus Vaccine Recomb Quad IM, Preserv and ABX Free 18-64 YRS Unknown Completed [facility] Influenza Virus Vaccine Quad IM, Preserv and ABX Free 6 MO-64 YRS (FLUCELVAX) Unknown Completed [facility] Pneumococcal 20 Conjugate, PCV20 (Prevnar 20) Unknown Completed [facility] Pneumococcal Polysaccharide, PPSV23 (PNEUMOVAX) Unknown Completed [facility] Influenza Virus Vaccine Quad .5 mL IM 6+ MO (FLUZONE/FLULAVAL/F LUARIX) Unknown Completed [facility] SARS-COV-2 COVID-19 MODERNA 12+ YRS VACCINE Unknown Completed [facility] SARS-COV-2 COVID-19 MODERNA 0.25ML BOOSTER VACCINE Unknown Completed [facility] Influenza Virus Vaccine Recomb Quad IM, Preserv and ABX Free 18-64 YRS Unknown Completed [facility] Influenza Virus Vaccine Quad IM, Preserv and ABX Free 6 MO-64 YRS (FLUCELVAX) Unknown Completed [facility] Pneumococcal 20 Conjugate, PCV20 (Prevnar 20) Unknown Completed [facility] Pneumococcal Polysaccharide, PPSV23 (PNEUMOVAX) Unknown Completed [facility] Influenza Virus Vaccine Quad .5 mL IM 6+ MO (FLUZONE/FLULAVAL/F LUARIX) Unknown Completed [facility] SARS-COV-2 COVID-19 MODERNA 12+ YRS VACCINE Unknown Completed [facility] SARS-COV-2 COVID-19 MODERNA 0.25ML BOOSTER VACCINE Unknown Completed [facility] Influenza Virus Vaccine Recomb Quad IM, Preserv and ABX Free 18-64 YRS Unknown Completed [facility] Influenza Virus Vaccine Quad IM, Preserv and ABX Free 6 MO-64 YRS (FLUCELVAX) Unknown Completed [facility] Pneumococcal 20 Conjugate, PCV20 (Prevnar 20) Unknown Completed [facility] Pneumococcal Polysaccharide, PPSV23 (PNEUMOVAX) Unknown Completed [facility] Influenza Virus Vaccine Quad .5 mL IM 6+ MO (FLUZONE/FLULAVAL/F LUARIX) Unknown Completed [facility] SARS-COV-2 COVID-19 MODERNA 12+ YRS VACCINE Unknown Completed [facility] SARS-COV-2 COVID-19 MODERNA 0.25ML BOOSTER VACCINE Unknown Completed [facility] Influenza Virus Vaccine Recomb Quad IM, Preserv and ABX Free 18-64 YRS Unknown Completed [facility] Influenza Virus Vaccine Quad IM, Preserv and ABX Free 6 MO-64 YRS (FLUCELVAX) Unknown Completed [facility] Pneumococcal 20 Conjugate, PCV20 (Prevnar 20) Unknown Completed [facility] Pneumococcal Polysaccharide, PPSV23 (PNEUMOVAX) Unknown Completed [facility] Influenza Virus Vaccine Quad .5 mL IM 6+ MO (FLUZONE/FLULAVAL/F LUARIX) Unknown Completed [facility] SARS-COV-2 COVID-19 MODERNA 12+ YRS VACCINE Unknown Completed [facility] SARS-COV-2 COVID-19 MODERNA 0.25ML BOOSTER VACCINE Unknown Completed [facility] Influenza Virus Vaccine Recomb Quad IM, Preserv and ABX Free 18-64 YRS Unknown Completed [facility] Influenza Virus Vaccine Quad IM, Preserv and ABX Free 6 MO-64 YRS (FLUCELVAX) Unknown Completed [facility] Pneumococcal 20 Conjugate, PCV20 (Prevnar 20) Unknown Completed [facility] Pneumococcal Polysaccharide, PPSV23 (PNEUMOVAX) Unknown Completed [facility] Influenza Virus Vaccine Quad .5 mL IM 6+ MO (FLUZONE/FLULAVAL/F LUARIX) Unknown Completed [facility] SARS-COV-2 COVID-19 MODERNA 12+ YRS VACCINE Unknown Completed [facility] SARS-COV-2 COVID-19 MODERNA 0.25ML BOOSTER VACCINE Unknown Completed [facility] Influenza Virus Vaccine Recomb Quad IM, Preserv and ABX Free 18-64 YRS Unknown Completed [facility] Influenza Virus Vaccine Quad IM, Preserv and ABX Free 6 MO-64 YRS (FLUCELVAX) Unknown Completed [facility] Pneumococcal 20 Conjugate, PCV20 (Prevnar 20) Unknown Completed [facility] Pneumococcal Polysaccharide, PPSV23 (PNEUMOVAX) Unknown Completed [facility] Influenza Virus Vaccine Quad .5 mL IM 6+ MO (FLUZONE/FLULAVAL/F LUARIX) Unknown Completed [facility] SARS-COV-2 COVID-19 MODERNA 12+ YRS VACCINE Unknown Completed [facility] SARS-COV-2 COVID-19 MODERNA 0.25ML BOOSTER VACCINE Unknown Completed [facility] Influenza Virus Vaccine Recomb Quad IM, Preserv and ABX Free 18-64 YRS Unknown Completed [facility] Influenza Virus Vaccine Quad IM, Preserv and ABX Free 6 MO-64 YRS (FLUCELVAX) Unknown Completed [facility] Pneumococcal 20 Conjugate, PCV20 (Prevnar 20) Unknown Completed [facility] Pneumococcal Polysaccharide, PPSV23 (PNEUMOVAX) Unknown Completed [facility] Influenza Virus Vaccine Quad .5 mL IM 6+ MO (FLUZONE/FLULAVAL/F LUARIX) Unknown Completed [facility] SARS-COV-2 COVID-19 MODERNA 12+ YRS VACCINE Unknown Completed [facility] SARS-COV-2 COVID-19 MODERNA 0.25ML BOOSTER VACCINE Unknown Completed [facility] Influenza Virus Vaccine Recomb Quad IM, Preserv and ABX Free 18-64 YRS Unknown Completed [facility] Influenza Virus Vaccine Quad IM, Preserv and ABX Free 6 MO-64 YRS (FLUCELVAX) Unknown Completed [facility] Pneumococcal 20 Conjugate, PCV20 (Prevnar 20) Unknown Completed [facility] Pneumococcal Polysaccharide, PPSV23 (PNEUMOVAX) Unknown Completed [facility] Influenza Virus Vaccine Quad .5 mL IM 6+ MO (FLUZONE/FLULAVAL/F LUARIX) Unknown Completed [facility] SARS-COV-2 COVID-19 MODERNA 12+ YRS VACCINE Unknown Completed [facility] SARS-COV-2 COVID-19 MODERNA 0.25ML BOOSTER VACCINE Unknown Completed [facility] Influenza Virus Vaccine Recomb Quad IM, Preserv and ABX Free 18-64 YRS Unknown Completed [facility] Influenza Virus Vaccine Quad IM, Preserv and ABX Free 6 MO-64 YRS (FLUCELVAX) Unknown Completed [facility] Pneumococcal 20 Conjugate, PCV20 (Prevnar 20) Unknown Completed [facility] Vital Signs Vital Name Observation Time Observation Value Comments Jose quintero Systolic blood pressure 2024-12-21 17:38:00 143 mm[Hg] [facility] Diastolic blood pressure 2024-12-21 17:38:00 81 mm[Hg] [facility] Heart rate 2024-12-21 17:38:00 83 /min [facility] Body temperature 2024-12-21 17:38:00 36.78 Jeanne [facility] Respiratory rate 2024-12-21 17:38:00 16 /min [facility] Body height 2024-12-21 17:38:00 165.1 cm [facility] Body weight 2024-12-21 17:38:00 110.224 kg [facility] BMI 2024-12-21 17:38:00 40.44 kg/m2 [facility] Oxygen saturation in Arterial blood by Pulse oximetry 2024-12-21 17:38:00 94 /min [facility] Systolic blood pressure 2024-07-19 19:19:00 166 mm[Hg] [facility] Diastolic blood pressure 2024-07-19 19:19:00 81 mm[Hg] [facility] Heart rate 2024-07-19 19:18:00 84 /min [facility] Body temperature 2024-07-19 19:18:00 36.61 Jeanne [facility] Respiratory rate 2024-07-19 19:18:00 16 /min [facility] Body height 2024-07-19 19:18:00 165.1 cm [facility] Body weight 2024-07-19 19:18:00 110.224 kg [facility] BMI 2024-07-19 19:18:00 40.44 kg/m2 [facility] Oxygen saturation in Arterial blood by Pulse oximetry 2024-07-19 19:18:00 95 /min [facility] Systolic blood pressure 2024-06-29 15:38:00 147 mm[Hg] [facility] Diastolic blood pressure 2024-06-29 15:38:00 80 mm[Hg] [facility] Heart rate 2024-06-29 15:38:00 80 /min [facility] Oxygen saturation in Arterial blood by Pulse oximetry 2024-06-29 15:38:00 93 /min [facility] Respiratory rate 2024-06-29 15:36:00 16 /min [facility] Body height 2024-06-29 15:36:00 165.1 cm [facility] Body weight 2024-06-29 15:36:00 109.317 kg [facility] BMI 2024-06-29 15:36:00 40.10 kg/m2 [facility] Systolic blood pressure 2024-03-09 15:19:00 147 mm[Hg] [facility] Diastolic blood pressure 2024-03-09 15:19:00 77 mm[Hg] [facility] Heart rate 2024-03-09 15:18:00 87 /min [facility] Body temperature 2024-03-09 15:18:00 36.78 Jeanne [facility] Respiratory rate 2024-03-09 15:18:00 20 /min [facility] Body height 2024-03-09 15:18:00 165.1 cm [facility] Body weight 2024-03-09 15:18:00 109.77 kg [facility] BMI 2024-03-09 15:18:00 40.27 kg/m2 [facility] Oxygen saturation in Arterial blood by Pulse oximetry 2024-03-09 15:18:00 93 /min [facility] Systolic blood pressure 2023-12-25 20:22:00 139 mm[Hg] [facility] Diastolic blood pressure 2023-12-25 20:22:00 72 mm[Hg] [facility] Heart rate 2023-12-25 20:22:00 83 /min [facility] Body height 2023-12-25 20:22:00 165.1 cm [facility] Body weight 2023-12-25 20:22:00 109.77 kg [facility] BMI 2023-12-25 20:22:00 40.27 [facility] Arterial blood by Pulse oximetry 2023-12-25 20:22:00 96 /min [facility] Systolic blood pressure 2023-12-02 13:07:00 130 mm[Hg] [facility] Diastolic blood pressure 2023-12-02 13:07:00 74 mm[Hg] [facility] Heart rate 2023-12-02 13:07:00 84 /min [facility] Body height 2023-12-02 13:07:00 165.1 cm [facility] Body weight 2023-12-02 13:07:00 105.235 kg [facility] BMI 2023-12-02 13:07:00 38.61 kg/m2 [facility] Oxygen saturation in Arterial blood by Pulse oximetry 2023-12-02 13:07:00 96 /min [facility] Systolic blood pressure 2023-11-09 18:56:00 134 mm[Hg] [facility] Diastolic blood pressure 2023-11-09 18:56:00 67 mm[Hg] [facility] Heart rate 2023-11-09 18:56:00 83 /min [facility] Oxygen saturation in Arterial blood by Pulse oximetry 2023-11-09 18:56:00 96 /min [facility] Systolic blood pressure 2023-10-14 17:54:00 127 mm[Hg] [facility] Diastolic blood pressure 2023-10-14 17:54:00 64 mm[Hg] [facility] Heart rate 2023-10-14 17:54:00 82 /min [facility] Oxygen saturation in Arterial blood by Pulse oximetry 2023-10-14 17:54:00 95 /min [facility] Systolic blood pressure 2023-07-28 20:40:00 132 mm[Hg] [facility] Diastolic blood pressure 2023-07-28 20:40:00 82 mm[Hg] [facility] Heart rate 2023-07-28 20:40:00 89 /min [facility] Body [facility] 2023-07-28 20:40:00 36.83 Jeanne [facility] Respiratory rate 2023-07-28 20:40:00 24 /min [facility] Body height 2023-07-28 20:40:00 165.1 cm [facility] Body weight 2023-07-28 20:40:00 102.059 [facility] BMI 2023-07-28 20:40:00 37.44 kg/m2 [facility] Oxygen saturation in Arterial blood by Pulse oximetry 2023-07-28 20:40:00 95 /min [facility] Systolic blood pressure 2023-07-10 17:37:00 95 mm[Hg] [facility] Diastolic blood pressure 2023-07-10 17:37:00 63 mm[Hg] [facility] Body height 2023-07-10 17:37:00 165.1 cm [facility] Body weight 2023-07-10 17:37:00 102.059 kg [facility] BMI 2023-07-10 17:37:00 37.44 kg/m2 [facility] Systolic blood pressure 2023-07-09 14:58:00 100 mm[Hg] [facility] Diastolic blood pressure 2023-07-09 14:58:00 64 mm[Hg] [facility] Heart rate 2023-07-09 14:58:00 76 /min [facility] Body height 2023-07-09 14:58:00 165.1 cm [facility] Body weight 2023-07-09 14:58:00 102.105 kg [facility] BMI 2023-07-09 14:58:00 37.46 kg/m2 [facility] Oxygen saturation in Arterial blood by Pulse oximetry 2023-07-09 14:58:00 96 /min [facility] Systolic blood pressure 2023-07-01 21:09:00 128 mm[Hg] [facility] Diastolic blood pressure 2023-07-01 21:09:00 70 mm[Hg] [facility] Heart rate 2023-07-01 21:09:00 82 /min [facility] Body height 2023-07-01 21:09:00 165.1 cm [facility] Body weight 2023-07-01 21:09:00 98.884 kg [facility] BMI 2023-07-01 21:09:00 36.28 kg/m2 [facility] Oxygen saturation in Arterial blood by Pulse oximetry 2023-07-01 21:09:00 97 /min [facility] Systolic blood pressure 2023-05-11 18:40:00 149 mm[Hg] [facility] Diastolic blood pressure 2023-05-11 18:40:00 80 mm[Hg] [facility] Heart rate 2023-05-11 18:39:00 89 /min [facility] Respiratory rate 2023-05-11 18:39:00 18 /min [facility] Body height 2023-05-11 18:39:00 165.1 cm [facility] Body weight 2023-05-11 18:39:00 98.431 kg [facility] BMI 2023-05-11 18:39:00 36.11 kg/m2 [facility] Oxygen saturation in Arterial blood by Pulse oximetry 2023-05-11 18:39:00 97 /min [facility] Systolic blood pressure 2023-04-08 14:27:00 156 mm[Hg] [facility] Diastolic blood pressure 2023-04-08 14:27:00 84 mm[Hg] [facility] Heart rate 2023-04-08 14:26:00 88 /min [facility] Respiratory rate 2023-04-08 14:26:00 18 /min [facility] Body height 2023-04-08 14:26:00 165.1 cm [facility] Body weight 2023-04-08 14:26:00 98.975 kg [facility] BMI 2023-04-08 14:26:00 36.31 kg/m2 [facility] Oxygen saturation in Arterial blood by Pulse oximetry 2023-04-08 14:26:00 96 /min [facility] Systolic blood pressure 2023-03-26 17:55:00 164 mm[Hg] [facility] Diastolic blood pressure 2023-03-26 17:55:00 84 mm[Hg] [facility] Heart rate 2023-03-26 17:54:00 81 /min [facility] Respiratory rate 2023-03-26 17:54:00 18 /min [facility] Body height 2023-03-26 17:54:00 165.1 cm [facility] Body weight 2023-03-26 17:54:00 99.338 kg [facility] BMI 2023-03-26 17:54:00 36.44 kg/m2 [facility] Oxygen saturation in Arterial blood by Pulse oximetry 2023-03-26 17:54:00 97 /min [facility] Systolic blood pressure 2023-02-11 14:37:00 164 mm[Hg] [facility] Diastolic blood pressure 2023-02-11 14:37:00 85 mm[Hg] [facility] Heart rate 2023-02-11 14:36:00 99 /min [facility] Body height 2023-02-11 14:36:00 165.1 cm [facility] Body weight 2023-02-11 14:36:00 99.565 kg [facility] BMI 2023-02-11 14:36:00 36.53 kg/m2 [facility] Oxygen saturation in Arterial blood by Pulse oximetry 2023-02-11 14:36:00 97 /min [facility] Systolic blood pressure 2023-01-24 18:00:00 137 mm[Hg] [facility] Diastolic blood pressure 2023-01-24 18:00:00 89 mm[Hg] [facility] Heart rate 2023-01-24 18:00:00 87 /min [facility] Body temperature 2023-01-24 18:00:00 36.61 Jeanne [facility] Respiratory rate 2023-01-24 18:00:00 18 /min [facility] Body height 2023-01-24 18:00:00 165.1 cm [facility] Body weight 2023-01-24 18:00:00 97.523 kg [facility] BMI 2023-01-24 18:00:00 35.78 kg/m2 [facility] Oxygen saturation in Arterial blood by Pulse oximetry 2023-01-24 18:00:00 95 /min [facility] Systolic blood pressure 2022-12-22 15:24:00 158 mm[Hg] [facility] Diastolic blood pressure 2022-12-22 15:24:00 85 mm[Hg] [facility] Heart rate 2022-12-22 15:23:00 74 /min [facility] Body temperature 2022-12-22 15:23:00 36.61 Jeanne [facility] Respiratory rate 2022-12-22 15:23:00 18 /min [facility] Body height 2022-12-22 15:23:00 167.6 cm [facility] Body weight 2022-12-22 15:23:00 100.154 kg [facility] BMI 2022-12-22 15:23:00 35.64 kg/m2 [facility] Oxygen saturation in Arterial blood by Pulse oximetry 2022-12-22 15:23:00 95 /min [facility] Systolic blood pressure 2022-11-27 14:48:00 118 mm[Hg] [facility] Diastolic blood pressure 2022-11-27 14:48:00 76 mm[Hg] [facility] Heart rate 2022-11-27 14:48:00 94 /min [facility] Body temperature 2022-11-27 14:48:00 37.11 Jeanne [facility] Body height 2022-11-27 14:48:00 165.1 cm [facility] Body weight 2022-11-27 14:48:00 100.245 kg [facility] BMI 2022-11-27 14:48:00 36.78 kg/m2 [facility] Oxygen saturation in Arterial blood by Pulse oximetry 2022-11-27 14:48:00 94 /min [facility] Systolic blood pressure 2022-11-12 14:18:00 100 mm[Hg] [facility] Diastolic blood pressure 2022-11-12 14:18:00 69 mm[Hg] [facility] Heart rate 2022-11-12 14:18:00 108 /min [facility] Body height 2022-11-12 14:18:00 165.1 cm [facility] Body weight 2022-11-12 14:18:00 99.338 kg [facility] BMI 2022-11-12 14:18:00 36.44 kg/m2 [facility] Oxygen saturation in Arterial blood by Pulse oximetry 2022-11-12 14:18:00 96 /min [facility] Systolic blood pressure 2022-10-30 16:15:00 111 mm[Hg] [facility] Diastolic blood pressure 2022-10-30 16:15:00 75 mm[Hg] [facility] Body temperature 2022-10-30 16:15:00 36.72 Jeanne [facility] Respiratory rate 2022-10-30 16:15:00 16 /min [facility] Body height 2022-10-30 16:15:00 165.1 cm [facility] Body weight 2022-10-30 16:15:00 97.977 kg [facility] BMI 2022-10-30 16:15:00 35.94 kg/m2 [facility] Oxygen saturation in Arterial blood by Pulse oximetry 2022-10-30 16:15:00 97 /min [facility] Systolic blood pressure 2022-09-10 14:46:00 122 mm[Hg] [facility] Diastolic blood pressure 2022-09-10 14:46:00 70 mm[Hg] [facility] Heart rate 2022-09-10 14:46:00 107 /min [facility] Body height 2022-09-10 14:46:00 165.1 cm [facility] Body weight 2022-09-10 14:46:00 106.142 kg [facility] BMI 2022-09-10 14:46:00 38.94 kg/m2 [facility] Oxygen saturation in Arterial blood by Pulse oximetry 2022-09-10 14:46:00 94 /min [facility] Systolic blood pressure 2022-08-07 17:58:00 114 mm[Hg] [facility] Diastolic blood pressure 2022-08-07 17:58:00 59 mm[Hg] [facility] Heart rate 2022-08-07 17:58:00 92 /min [facility] Body height 2022-08-07 17:58:00 165.1 cm [facility] Body weight 2022-08-07 17:58:00 115.214 kg [facility] BMI 2022-08-07 17:58:00 42.27 kg/m2 [facility] Oxygen saturation in Arterial blood by Pulse oximetry 2022-08-07 17:58:00 91 /min [facility] Systolic blood pressure 2022-07-19 22:01:00 145 mm[Hg] [facility] Diastolic blood pressure 2022-07-19 22:01:00 73 mm[Hg] [facility] Heart rate 2022-07-19 22:01:00 91 /min [facility] Respiratory rate 2022-07-19 22:01:00 15 /min [facility] Oxygen saturation in Arterial blood by Pulse oximetry 2022-07-19 22:01:00 92 /min [facility] Body temperature 2022-07-19 19:11:00 36.72 Jeanne [facility] Body weight 2022-07-19 19:11:00 111.585 kg [facility] BMI 2022-07-19 19:11:00 40.94 kg/m2 [facility] Systolic blood pressure 2022-07-16 16:47:00 139 mm[Hg] [facility] Diastolic blood pressure 2022-07-16 16:47:00 78 mm[Hg] [facility] Heart rate 2022-07-16 16:45:00 83 /min [facility] Respiratory rate 2022-07-16 16:45:00 22 /min [facility] Body height 2022-07-16 16:45:00 165.1 cm [facility] Body weight 2022-07-16 16:45:00 111.585 kg [facility] BMI 2022-07-16 16:45:00 40.94 kg/m2 [facility] Oxygen saturation in Arterial blood by Pulse oximetry 2022-07-16 16:45:00 93 /min [facility] Systolic blood pressure 2022-06-10 20:16:00 138 mm[Hg] [facility] Diastolic blood pressure 2022-06-10 20:16:00 72 mm[Hg] [facility] Heart rate 2022-06-10 20:16:00 84 /min [facility] Body weight 2022-06-10 20:16:00 111.993 kg [facility] BMI 2022-06-10 20:16:00 41.09 kg/m2 [facility] Oxygen saturation in Arterial blood by Pulse oximetry 2022-06-10 20:16:00 95 /min [facility] Systolic blood pressure 2022-06-04 16:31:00 138 mm[Hg] [facility] Diastolic blood pressure 2022-06-04 16:31:00 80 mm[Hg] [facility] Heart rate 2022-06-04 16:00:00 95 /min [facility] Body temperature 2022-06-04 16:00:00 36.94 Jeanne [facility] Body height 2022-06-04 16:00:00 165.1 cm [facility] Body weight 2022-06-04 16:00:00 111.131 kg [facility] BMI 2022-06-04 16:00:00 40.77 kg/m2 [facility] Oxygen saturation in Arterial blood by Pulse oximetry 2022-06-04 16:00:00 95 /min [facility] Systolic blood pressure 2022-05-29 18:11:00 161 mm[Hg] [facility] Diastolic blood pressure 2022-05-29 18:11:00 78 mm[Hg] [facility] Heart rate 2022-05-29 18:11:00 89 /min [facility] Respiratory rate 2022-05-29 18:11:00 20 /min [facility] Oxygen saturation in Arterial blood by Pulse oximetry 2022-05-29 18:11:00 98 /min [facility] Body temperature 2022-05-29 15:16:00 37.06 Jeanne [facility] Body height 2022-05-29 15:16:00 165.1 cm [facility] Body weight 2022-05-29 15:16:00 113.399 kg [facility] BMI 2022-05-29 15:16:00 41.60 kg/m2 [facility] Systolic blood pressure 2022-05-23 21:06:00 156 mm[Hg] [facility] Diastolic blood pressure 2022-05-23 21:06:00 78 mm[Hg] [facility] Heart rate 2022-05-23 21:06:00 87 /min [facility] Body weight 2022-05-23 21:06:00 113.036 kg [facility] BMI 2022-05-23 21:06:00 41.47 kg/m2 [facility] Oxygen saturation in Arterial blood by Pulse oximetry 2022-05-23 21:06:00 97 /min [facility] Systolic blood pressure 2022-05-08 17:02:00 127 mm[Hg] [facility] Diastolic blood pressure 2022-05-08 17:02:00 77 mm[Hg] [facility] Heart rate 2022-05-08 16:56:00 87 /min [facility] Body weight 2022-05-08 16:56:00 111.131 kg [facility] BMI 2022-05-08 16:56:00 40.77 kg/m2 [facility] Oxygen saturation in Arterial blood by Pulse oximetry 2022-05-08 16:56:00 96 /min [place] [facility] Procedures Procedure Date / Time Performed Performing Clinician Source POCT MOLECULAR STREP 2024-12-21 17:33:00 Unknown, Atte shira [facility] DME/SUPPLY JUSTIFICATION 2024-06-07 21:11:47 Doc tor Unassigned, [facility] - OTHER 2024-01-04 17:53:43 Doctor Nasreen [email or web address], [facility] - OTHER 2023-12-03 20:19:26 Doctor Nasreen medina, [facility] SCANNED LAB RESULTS 2023-11-16 17:14:14 Doctor Nasreen medina, [facility] - OTHER 2023-11-05 18:46:11 Doctor Nasreen medina, [facility] HEALTH (SCANNED) DOCUMENTS 2023-11-05 14:00:05 Doctor Unassigned, [facility] - OTHER 2023-11-02 12:43:55 Doctor Nasreen medina, [facility] SCANNED LAB RESULTS 2023-10-29 16:16:26 Doctor Nasreen medina, [facility] THYROID STIMULATING HORMONE 2023-10-14 18:15:00 Jefferson Witt [facility] COMP. METABOLIC PANEL (66620) 2023-10-14 18:15:00 Jefferson Witt [facility] LIPID PANEL (86511)(TOTAL CHOLESTEROL, TRIGLYCERIDES, HDL) 2023-10-14 18:15:00 Jefferson Witt [facility] GLYCOSYLATED HEMOGLOBIN (A1C) 2023-10-14 18:15:00 Jefferson Witt [facility] EXTERNAL PROVIDER RECORDS 2023-10-06 06:01:00 Do ctor Unassigned, [facility] - OTHER 2023-07-13 06:01:00 Doctor Nasreen medina, [facility] POCT HEMOGLOBIN A1C TEST 2023-07-10 17:48:00 Giovany Antoine [facility] FLU VACC (), 6 MO-64 YRS, .5ML, IM, QUAD (FLUCELVAX) 2023-07-01 21:29:58 Jefferson Witt [facility] PNEUMOCOCCAL 20 CONJUGATE (PREVNAR 20) VACCINE 2023-07-01 21:29:58 Jefferson Witt [facility] EXTERNAL PROVIDER RECORDS 2023-06-17 06:01:00 Do ctor Unassigned, [facility] HOME HEALTH - OTHER 2023-04-20 05:01:00 Doctor Nasreen medina, [facility] EXTERNAL PROVIDER RECORDS 2023-03-10 05:01:00 Do ctor Unassigned, [facility] INSURANCE CORRESPONDENCE 2023-02-23 05:01:00 Doc annette Unassigned, [facility] DOWNTIME AMBULATORY DOCUMENTS 2023-01-24 05:01:00 Doctor Unassigned, [facility] ASSIGNMENT OF BENEFITS 2022-12-22 15:12:00 Docto r Unassigned, [facility] DME/SUPPLY JUSTIFICATION 2022-12-08 05:01:00 Doc tor Unassigned, [facility] PATIENT QUESTIONNAIRE 2022-11-25 05:01:00 Doctor Unassigned, [facility] DME/SUPPLY JUSTIFICATION 2022-11-13 05:01:00 Doc annette Unassigned, [facility] POCT MOLECULAR FLU 2022-10-30 16:23:00 Rosette Contreras [facility] POCT MOLECULAR STREP 2022-10-30 16:22:00 Ade Contreras [facility] PATIENT FINANCIAL POLICY 2022-10-30 16:10:54 Doctor Unassigned, [facility] DME/SUPPLY JUSTIFICATION 2022-10-22 05:01:00 Doc annette Unassigned, [facility] HOME HEALTH - OTHER 2022-10-13 05:01:00 Doctor Nasreen medina, [facility] EXTERNAL PROVIDER RECORDS 2022-09-30 06:01:00 Do ctor Unassigned, [facility] DME/SUPPLY JUSTIFICATION 2022-09-25 06:01:00 Doc tor Unassigned, [facility] EXTERNAL PROVIDER RECORDS 2022-09-19 06:01:00 Do ctor Unassigned, [facility] EXTERNAL PROVIDER RECORDS 2022-09-04 06:01:00 Do ctor Unassigned, [facility] HOME HEALTH - OTHER 2022-08-20 06:01:00 Doctor Nasreen medina, [facility] EXTERNAL PROVIDER RECORDS 2022-08-11 06:01:00 Do ctor Unassigned, [facility] HEALTH - OTHER 2022-08-03 06:01:00 Doctor Nasreen medina, [facility] COMP. METABOLIC PANEL ([id number]) 2022-07-19 19:57:00 Jesus Spain [facility] CBC WITH DIFF 2022-07-19 19:57:00 Jesus Spain [facility] LACTIC ACID WHOLE BLOOD 2022-07-19 19:56:00 Do katerin Spain [facility] XR HEEL 2+ VW LEFT 2022-07-19 19:48:20 Jesus Spain [facility] CONSENT/REFUSAL FOR DIAGNOSIS AND TREATMENT 2022-07-19 19:00:48 Doctor Unassigned, [facility] SLEEP STUDY DATA REPORT 2022-06-19 06:01:00 Doct or Unassigned, [facility] LIPASE 2022-05-29 16:08:00 Daylin [facility] TROPONIN I 2022-05-29 16:08:00 Daylin [facility] COMP. METABOLIC PANEL ([id number]) 2022-05-29 16:08:00 Daylin Mojica [facility] CBC WITH DIFF 2022-05-29 16:08:00 Daylin Mojica [facility] URINALYSIS 2022-05-29 16:02:00 Daylin Mo[facility] CONSENT/REFUSAL FOR DIAGNOSIS AND TREATMENT 2022-05-29 15:11:18 Doctor Unassigned, [facility] POCT HEMOGLOBIN A1C TEST 2022-05-23 21:18:00 Giovany Antoine [facility] PHYSICIAN ORDERS 2022-05-08 05:01:00 Doctor Unas signed, [facility] Encounters Start Date/Time End Date/Time Encounter Type Admission Type Attending [facility] Care Facility Care Department Encounter ID Source 2024-09-07 11:47:01 Outpatient Jefferson Witt [facility] [id number] 2021-06-01 23:56:14 Emergency [facility] [id number] [facility] 2021-06-01 12:13:32 Outpatient BISI CARDOSO [facility] [id number] [facility] 2025-04-07 15:30:00 2025-04-07 15:30:00 Outpatient GIOVANY GOTTI [facility] [id number] [facility] 2025-02-27 00:00:00 2025-02-28 14:33:48 Refill Jefferson Witt [facility] [place]?[facility] MEDICAL OFFICE BUILDING 1.2.840.114 350.1.13.10 4.2.7.2.686 [id number] 044 [id number] [facility] 2025-02-26 00:00:00 2025-02-26 17:46:52 Telephone [facility] MED[facility] OFF[facility] BUILDING 1.2.840.114 350.1.13.10 4.2.7.2.686 [id number] 044 [id number] [facility] 2025-02-16 00:00:00 2025-02-21 13:11:37 Telephone Jefferson Witt [facility] [place]?[facility] MEDICAL OFFICE BUILDING 1.2.840.114 350.1.13.10 4.2.7.2.686 [id number] 044 [id number] [facility] 2024-12-26 00:00:00 2024-12-27 09:57:31 [facility] 1.2.840.114 350.1.13.10 4.2.7.2.686 [id number] [facility] 2024-12-22 00:00:00 2024-12-22 12:12:47 Telephone [facility]MARISELA [facility] MEDICAL OFFICE BUILDING 1.2.840.114 350.1.13.10 4.2.7.2.686 [id number] [facility] 2024-12-21 12:00:00 2024-12-21 12:55:55 Urgent Care R GEORGIE [facility] 1.2.840.114 350.1.13.10 4.2.7.2.686 [id number] [facility] 2024-12-06 00:00:00 2024-12-06 10:53:35 [facility]ill [facility] MEDICAL OFFICE BUILDING 1.2.840.114 350.1.13.10 4.2.7.2.686 [id number] 044 [id number] [facility] 2024-11-08 00:00:00 2024-11-09 06:35:25 Refill [facility] MEDICAL OFFICE BUILDING 1.2.840.114 350.1.13.10 4.2.7.2.686 [id number] 044 [id number] [facility] 2024-10-21 00:00:00 2024-10-27 13:51:53 Telephone [facility] MEDICAL OFFICE BUILDING 1.2.840.114 350.1.13.10 4.2.7.2.686 [id number] 044 [id number] [facility] 2024-10-04 00:00:00 2024-10-04 14:11:08 Telephone CliffLucianodipti [facility] BUILDING 1.2.840.114 350.1.13.10 4.2.7.2.686 [id number] [facility] 2024-01-04 00:00:00 2024-09-17 07:37:54 Orders Only Doctor Unassigned, Mcallister Doctor Unassigned, Mcallister [facility] ([place]) 1.2.840.114 350.1.13.10 4.2.7.2.686 [id number] [id number] [facility] 2024-06-07 00:00:00 2024-09-17 06:41:39 Orders Only Doctor Unassigned, Mcallister Doctor Unassigned, Mcallister [facility] ([place]) 1.2.840.114 350.1.13.10 4.2.7.2.686 [id number] 009 [id number] [facility] 2020-07-11 00:00:00 2024-09-17 02:58:34 Orders Only Gates, Paige A Paige Gates A [facility] OFFICE BUILDING ONE 1.2.840.114 350.1.13.10 4.2.7.2.686 [id number] 044 [id number] [facility] 2023-10-29 00:00:00 2024-09-17 02:32:48 Orders Only Doctor Unassigned, Mcallister Doctor Unassigned, Mcallister [facility] ([place]) 1.2.840.114 350.1.13.10 4.2.7.2.686 [id number] [id number] [facility] 2023-11-02 00:00:00 2024-09-17 02:30:48 Orders Only Doctor Unassigned, Mcallister Doctor Unassigned, Mcallister [facility] ([place]) 1.2.840.114 350.1.13.10 4.2.7.2.686 [id number] [facility] 2023-11-05 00:00:00 2024-09-17 02:27:45 Orders Only Doctor Unassigned, Mcallister Doctor Unassigned, Mcallister [facility] ([place]) 1.2.840.114 350.1.13.10 4.2.7.2.686 [id number] [id number] [facility] 2023-11-05 00:00:00 2024-09-17 02:27:30 Orders Only Doctor Unassigned, Mcallister Doctor Unassigned, Mcallister [facility] ([facility]) 1.2.840.114 350.1.13.10 4.2.7.2.686 [id number] 009 [id number] [facility] 2023-11-16 00:00:00 2024-09-17 02:20:19 Orders Only Doctor Unassigned, Mcallister Doctor Unassigned, Mcallister [facility] ([place]) 1.2.840.114 350.1.13.10 4.2.7.2.686 [id number] 009 [id number] [facility] 2023-12-03 00:00:00 2024-09-17 02:05:30 Orders Only Doctor Unassigned, Mcallister Doctor Unassigned, Mcallister [facility] ([place]) 1.2.840.114 350.1.13.10 4.2.7.2.686 [id number] 009 [id number] [facility] 2024-08-10 00:00:00 2024-08-11 14:59:59 [facility] MEDICAL OFFICE BUILDING 1.2840.114 350.1.13.10 4.2.7.2.686 [id number] 044 [id number] [facility] 2024-08-10 00:00:00 2024-08-10 11:35:07 [facility] MEDICAL OFFICE BUILDING 1.2840.114 350.1.13.10 4.2.7.2.686 [id number] 044 [id number] [facility] 2024-07-19 12:20:00 2024-07-19 12:40:00 Urgent Care Bisi Caceres Jay, Attending [facility] OFF[facility] BUILDING 1.84.114 350.1.13.10 4.2.7.2.686 [id number] [facility] 2024-07-19 12:20:00 2024-07-19 12:20:00 Outpatient R BISI CACERES [facility] [id number] [facility] 2024-07-10 00:00:00 2024-07-12 14:50:20 Refprabhjot Witt [facility] 1..840.114 350.1.13.10 4.2.7.2.686 [id number] 044 [id number] [facility] 2024-07-08 00:00:00 2024-07-12 14:22:27 Refprabhjot Witt [facility] MEDICAL OFFICE BUILDING 1.84.114 350.1.13.10 4.2.7.2.686 [id number] 044 [id number] [facility] 2024-06-29 09:40:00 2024-06-29 10:08:09 Outpatient R ROBBIE CORONADO [facility] [id number] [facility] 2024-06-29 09:40:00 2024-06-29 10:00:00 Office Visit Robbie Coronado [facility] JAZZY HERNADEZ[facility]IO NAL BUILDING 1.84.114 350.1.13.10 4.2.7.2.686 [id number] [facility] 2024-05-23 14:00:00 2024-05-23 14:00:00 Outpatient R CLAIRE ELAM [facility] [id number] [facility] 2024-05-13 14:30:00 2024-05-13 14:30:00 Outpatient GIOVANY GOTTI [facility] [id number] [facility] 2024-04-13 00:00:00 2024-04-13 10:35:21 Viktoriya Witt [facility] [place]?MARISELA [facility] MEDICAL OFFICE BUILDING 1.84.114 350.1.13.10 4.2.7.2.686 [id number] [id number] [facility] 2024-03-09 10:00:00 2024-03-09 10:20:00 Urgent Care Bisi Caceres, Attending [facility] [place] 1.84.114 350.1.13.10 4.2.7.2.686 [id number] [facility] 2024-03-09 10:00:00 2024-03-09 10:00:00 Outpatient BISI COONEY [facility] [id number] [facility] 2024-02-13 00:00:00 2024-02-15 14:44:54 Giovany Morton [facility] [place] MEDICAL OFFICE BUILDING 1.84.114 350.1.13.10 4.2.7.2.686 [id number] [facility] 2024-02-13 00:00:00 2024-02-15 11:03:34 Refprabhjot Witt [facility] [place]?[facility] MEDICAL OFFICE BUILDING 1.84.114 350.1.13.10 4.2.7.2.686 [id number] 044 [id number] [facility] 2024-02-12 00:00:00 2024-02-12 09:36:49 Telephone Jefferson Witt [facility] MEDICAL OFFICE BUILDING 1.2.840.114 350.1.13.10 4.2.7.2.686 [id number] 044 [id number] [facility] 2024-01-26 00:00:00 2024-01-27 06:12:18 Refill Jefferson [facility] MEDICAL OFFICE BUILDING 1.840.114 350.1.13.10 4.2.7.2.686 [id number] 044 [id number] [facility] 2024-01-14 00:00:00 2024-01-15 08:07:43 Telephone Eduar [facility] MEDICAL OFFICE BUILDING 1.114 350.1.13.10 4.2.7.2.686 [id number] 044 [id number] [facility] 2024-01-14 12:45:00 2024-01-14 12:45:00 Outpatient R JEFFERSON WITT [facility] [id number] [facility] 2024-01-08 11:30:00 2024-01-08 11:30:00 Outpatient R GIOVANY ANTOINE [facility] [id number] [facility] 2023-12-29 00:00:00 2024-01-07 09:38:12 Telephone Giovany Antoine [facility] MEDICAL OFFICE BUILDING 1.284.114 350.1.13.10 4.2.7.2.686 [id number] [facility] 2024-01-01 14:30:00 2024-01-01 14:30:00 Outpatient R GIOVANY ANTOINE [facility] [id number] [facility] 2023-12-29 00:00:00 2023-12-30 06:19:23 Refill Eduar [facility] MEDICAL OFFICE BUILDING 1.840.114 350.1.13.10 4.2.7.2.686 [id number] 044 [id number] [facility] 2023-12-25 15:30:00 2023-12-25 16:19:57 Outpatient R GIOVANY ANTOINE [facility] [id number] [facility] 2023-12-25 15:30:00 2023-12-25 16:19:57 Office Visit Giovany Antoine [facility]A [facility] MEDICAL OFFICE BUILDING 1.2.840.114 350.1.13.10 4.2.7.2.686 [id number] [facility] 2023-12-23 09:30:00 2023-12-23 09:30:00 Outpatient R DANIEL CASTELLON [facility] [id number] [facility] 2023-12-22 00:00:00 2023-12-23 07:41:04 [facility] BUILD[facility] 1.2.840.114 350.1.13.10 4.2.7.2.686 [id number] 044 [id number] [facility] 2023-12-21 00:00:00 2023-12-22 08:45:45 Telephone Giovany Antoine [facility] [place]?[facility] MEDICAL OFFICE BUILDING 1.2.840.114 350.1.13.10 4.2.7.2.686 [id number] [facility] 2023-12-21 09:45:00 2023-12-21 09:45:00 Outpatient R JEFFERSON WITT [facility] [id number] [facility] 2023-12-17 09:00:00 2023-12-17 09:00:00 Outpatient R DOMINGA-MONTSE BAINS OBI-MONTSE BAINS [facility] [id number] [facility] 2023-12-15 00:00:00 2023-12-15 16:18:11 Refill Eduar [facility]?MARISELA [facility] MEDICAL OFFICE BUILDING 1.2.840.114 350.1.13.10 4.2.7.2.686 [id number] 044 [id number] [facility] 2023-12-15 00:00:00 2023-12-15 13:31:42 Telephone Jefferson Witt [facility] [place]?MARISELA [facility] MEDICAL OFFICE BUILDING 1.2.840.114 350.1.13.10 4.2.7.2.686 [id number] 044 [id number] [facility] 2023-12-15 00:00:00 2023-12-15 10:15:58 Telephone Jefferson Witt [facility] [place] MEDICAL OFFICE BUILDING 1.2.840.114 350.1.13.10 4.2.7.2.686 [id number] 044 [id number] [facility] 2023-12-11 00:00:00 2023-12-14 17:17:47 Telephone Giovany Antoine [facility] [place]?[facility] MEDICAL OFFICE BUILDING 1.2.840.114 350.1.13.10 4.2.7.2.686 [id number] [facility] 2023-12-09 00:00:00 2023-12-11 15:32:48 Telephone Jefferson Witt [facility] [place]?[facility] MEDICAL OFFICE BUILDING 1.2.840.114 350.1.13.10 4.2.7.2.686 [id number] [id number] [facility] 2023-12-08 00:00:00 2023-12-08 13:49:24 Refill Giovany Antoine [facility] [place]?[facility] MEDICAL OFFICE BUILDING 1.2.840.114 350.1.13.10 4.2.7.2.686 [id number] [facility] 2023-12-07 00:00:00 2023-12-08 12:44:04 Telephone [facility] MED[facility] OFF[facility] BUILDING 1.2.840.114 350.1.13.10 4.2.7.2.686 [id number] 044 [id number] [facility] 2023-12-02 08:30:00 2023-12-02 08:45:00 Office Visit Jefferson Witt [facility] [place]?[facility] MEDICAL OFFICE BUILDING 1.2.840.114 350.1.13.10 4.2.7.2.686 [id number] 044 [id number] [facility] 2023-12-02 08:30:00 2023-12-02 08:30:00 Outpatient R JEFFERSON WITT [facility] [id number] [facility] 2023-12-01 00:00:00 2023-12-01 00:00:00 Telephone Eduar [facility] MA[place]IO?MARISELA [facility] MEDICAL OFFICE BUILDING 1.2840.114 350.1.13.10 4.2.7.2.686 [id number] 044 [id number] [facility] 2023-12-01 00:00:00 2023-12-01 00:00:00 [facility]ill [facility]?MARISELA [facility] MEDICAL OFFICE BUILDING 1.2.840.114 350.1.13.10 4.2.7.2.686 [id number] [id number] [facility] 2023-11-29 00:00:00 2023-11-29 00:00:00 Refill Eduar [facility] MEDICAL OFFICE BUILDING 1.2.840.114 350.1.13.10 4.2.7.2.686 [id number] 044 [id number] [facility] 2023-11-28 00:00:00 2023-11-28 00:00:00 Nurse Triage Priti Robles [facility] 1.2840.114 350.1.13.10 4.2.7.2.686 [id number] [facility] 2023-11-23 00:00:00 2023-11-23 00:00:00 [facility] MEDICAL OFFICE BUILDING 1.2840.114 350.1.13.10 4.2.7.2.686 [id number] 044 [id number] [facility] 2023-11-17 00:00:00 2023-11-17 00:00:00 Refill Eduar [facility] [place]?[facility] MEDICAL OFFICE BUILDING 1.840.114 350.1.13.10 4.2.7.2.686 [id number] 044 [id number] [facility] 2023-11-12 00:00:00 2023-11-12 00:00:00 Telephone Eduar Jefferson [facility] [place]?[facility] MEDICAL OFFICE BUILDING 1.0.114 350.1.13.10 4.2.7.2.686 [id number] 044 [id number] [facility] 2023-11-11 00:00:00 2023-11-11 00:00:00 Telephone Eduar [facility] [place]?[facility] MEDICAL OFFICE BUILDING 1.2840.114 350.1.13.10 4.2.7.2.686 [id number] 044 [id number] [facility] 2023-11-09 14:15:00 2023-11-09 14:18:10 Outpatient R EDUAR JEFFERSON [facility] [id number] [facility] 2023-11-09 14:15:00 2023-11-09 14:18:10 Citrix Lead Visit Lab, Fritz Valencia Witt [facility] [place]IO?[facility] MEDICAL OFFICE BUILDING 1.2840.114 350.1.13.10 4.2.7.2.686 [id number] [facility] 2023-11-09 14:00:00 2023-11-09 14:15:00 Office Visit Jefferson Witt [facility] MIRNA GLEASON?[facility]A [facility] MEDICAL OFFICE BUILDING 1.2.840.114 350.1.13.10 4.2.7.2.686 [id number] 044 [id number] [facility] 2023-11-04 00:00:00 2023-11-04 00:00:00 Telephone Jefferson Witt [facility] MIRNA GLEASON?MARISELA [facility] MEDICAL OFFICE BUILDING 1.2.840.114 350.1.13.10 4.2.7.2.686 [id number] 044 [id number] [facility] 2023-11-03 00:00:00 2023-11-03 00:00:00 Telephone Jefferson Witt [facility]?MARISELA [facility] MEDICAL OFFICE BUILDING 1.2.840.114 350.1.13.10 4.2.7.2.686 [id number] 044 [id number] [facility] 2023-11-02 00:00:00 2023-11-02 00:00:00 Refill [facility] MEDICAL OFFICE BUILDING 1.2.840.114 350.1.13.10 4.2.7.2.686 [id number] 044 [id number] [facility] 2023-10-15 00:00:00 2023-10-15 00:00:00 Telephone Jefferson Witt [facility] MEDICAL OFFICE BUILDING 1.2.840.114 350.1.13.10 4.2.7.2.686 [id number] 044 [id number] [facility] 2023-10-15 00:00:00 2023-10-15 00:00:00 Refill [facility] MEDICAL OFFICE BUILDING 1.2.840.114 350.1.13.10 4.2.7.2.686 [id number] 044 [id number] [facility] 2023-10-14 13:15:00 2023-10-14 13:36:52 Citrix Lead Visit Lab, Ang - Db Witt, [facility] MA[place]?MARISELA [facility] MEDICAL OFFICE BUILDING 1.2.840.114 350.1.13.10 4.2.7.2.686 [id number] [facility] 2023-10-14 12:45:00 2023-10-14 13:03:06 Outpatient R EDUAR [facility] [id number] [facility] 2023-10-14 12:45:00 2023-10-14 13:03:06 Office Visit Eduar [facility] MA[place]ICIO?MARISELA [facility] MEDICAL OFFICE BUILDING 1.2.840.114 350.1.13.10 4.2.7.2.686 [id number] 044 [id number] [facility] 2023-10-09 00:00:00 2023-10-09 00:00:00 Refill Eduar [facility] [place]?[facility] MEDICAL OFFICE BUILDING 1.840.114 350.1.13.10 4.2.7.2.686 [id number] 044 [id number] [facility] 2023-10-09 00:00:00 2023-10-09 00:00:00 Refill Eduar [facility] [place]?[facility] MEDICAL OFFICE BUILDING 1.840.114 350.1.13.10 4.2.7.2.686 [id number] [id number] [facility] 2023-10-09 00:00:00 2023-10-09 00:00:00 Refill Eduar [facility] [place]?[facility] MEDICAL OFFICE BUILDING 1.2.840.114 350.1.13.10 4.2.7.2.686 [id number] 044 [id number] [facility] 2023-10-06 00:00:00 2023-10-06 00:00:00 Orders Only Doctor Unassigned, Mcallister [facility] 1.2840.114 350.1.13.10 4.2.7.2.686 [id number] [facility] 2023-10-05 13:00:00 2023-10-05 13:00:00 Outpatient JEFFERSON PEREZ [facility] [id number] [facility] 2023-10-05 09:30:00 2023-10-05 09:30:00 Outpatient JEFFERSON PEREZ [facility] [id number] [facility] 2023-10-01 00:00:00 2023-10-01 00:00:00 Refill Eduar [facility] MEDICAL OFFICE BUILDING 1.2840.114 350.1.13.10 4.2.7.2.686 [id number] 044 [id number] [facility] 2023-09-24 00:00:00 2023-09-24 00:00:00 Telephone Eduar [facility] [place]?[facility] MEDICAL OFFICE BUILDING 1.2840.114 350.1.13.10 4.2.7.2.686 [id number] 044 [id number] [facility] 2023-09-16 00:00:00 2023-09-16 00:00:00 Refill Eduar [facility] [place]?[facility] MEDICAL OFFICE BUILDING 1.2840.114 350.1.13.10 4.2.7.2.686 [id number] 044 [id number] [facility] 2023-09-15 00:00:00 2023-09-15 00:00:00 Refill Eduar [facility] [place]?[facility] MEDICAL OFFICE BUILDING 1.2840.114 350.1.13.10 4.2.7.2.686 [id number] 044 [id number] [facility] 2023-09-11 00:00:00 2023-09-11 00:00:00 [facility] MEDICAL OFFICE BUILDING 1.840.114 350.1.13.10 4.2.7.2.686 [id number] 044 [id number] [facility] 2023-09-11 00:00:00 2023-09-11 00:00:00 Refill [facility] MED[facility] OFFICE BUILDING 1.2840.114 350.1.13.10 4.2.7.2.686 [id number] 044 [id number] [facility] 2023-09-10 00:00:00 2023-09-10 00:00:00 Telephone [facility]?MARISELA [facility] MEDICAL OFFICE BUILDING 1.840.114 350.1.13.10 4.2.7.2.686 [id number] 044 [id number] [facility] 2023-09-02 00:00:00 2023-09-02 00:00:00 Refill [facility]?MARISELA [facility] MEDICAL OFFICE BUILDING 1.840.114 350.1.13.10 4.2.7.2.686 [id number] 044 [id number] [facility] 2023-08-18 00:00:00 2023-08-18 00:00:00 Refill Eduar [facility] [place]?MARISELA [facility] MEDICAL OFFICE BUILDING 1.2840.114 350.1.13.10 4.2.7.2.686 [id number] [facility] 2023-08-14 08:45:00 2023-08-14 09:33:25 Outpatient NORA BARRAZA [facility] [id number] [facility] 2023-08-14 08:45:00 2023-08-14 09:00:00 Citrix Lead Visit Lab, Nora Moss [facility] 1.2.840.114 350.1.13.10 4.2.7.2.686 [id number] [facility] 2023-08-10 09:30:00 2023-08-10 09:30:00 Outpatient R JEFFERSON WITT [facility] [id number] [facility] 2023-08-07 00:00:00 2023-08-07 00:00:00 Refill Eduar Jefferson [facility] 1.840.114 350.1.13.10 4.2.7.2.686 [id number] [facility] 2023-08-07 00:00:00 2023-08-07 00:00:00 Refill Giovany Antoine [facility] 1.0.114 350.1.13.10 4.2.7.2.686 [id number] [facility] 2023-08-05 00:00:00 2023-08-05 00:00:00 Refill Eduar Jefferson [facility] 1.840.114 350.1.13.10 4.2.7.2.686 [id number] [facility] 2023-08-04 00:00:00 2023-08-04 00:00:00 Telephone Jefferson Witt [facility] [place] BUILD[facility] 1.2840.114 350.1.13.10 4.2.7.2.686 [id number] [facility] 2023-07-29 00:00:00 2023-07-29 00:00:00 Refill Giovany Antoine [facility] 1.840.114 350.1.13.10 4.2.7.2.686 [id number] [facility] 2023-07-28 14:40:00 2023-07-28 15:00:00 Urgent Care Ana Riddle Unknown, Attending [facility] 1.2840.114 350.1.13.10 4.2.7.2.686 [id number] [facility] 2023-07-28 14:40:00 2023-07-28 14:40:00 Outpatient R ANA RIDDLE [facility] [id number] [facility] 2023-07-21 00:00:00 2023-07-21 00:00:00 Telephone Eduar [facility] BUILD[facility] 1.840.114 350.1.13.10 4.2.7.2.686 [id number] [facility] 2023-07-17 00:00:00 2023-07-17 00:00:00 [facility] 1.84.114 350.1.13.10 4.2.7.2.686 [id number] [facility] 2023-07-14 00:00:00 2023-07-14 00:00:00 Telephone [facility] 1.84.114 350.1.13.10 4.2.7.2.686 [id number] [id number] [facility] 2023-07-13 00:00:00 2023-07-13 00:00:00 Orders Only Doctor Unassigned, Mc[facility]ister [facility] 1.2840.114 350.1.13.10 4.2.7.2.686 [id number] [facility] 2023-07-10 11:30:00 2023-07-10 12:21:58 Outpatient R GIOVANY ANTOINE [facility] [id number] [facility] [facility]-10 11:30:00 2023-07-10 12:21:58 Office Visit [facility] 1.2.840.114 350.1.13.10 4.2.7.2.686 [id number] [facility] 2023-07-09 09:00:00 2023-07-09 09:14:16 Outpatient R CARLA VELASCO [facility] [id number] [facility] 2023-07-09 09:00:00 2023-07-09 09:14:16 Office Visit Carla Velasco [facility]A [facility] MED[facility] BU[facility] 1..840.114 350.1.13.10 4.2.7.2.686 [id number] 044 [id number] [facility] 2023-07-07 00:00:00 2023-07-07 00:00:00 [facility] 1..840.114 350.1.13.10 4.2.7.2.686 [id number] 044 [id number] [facility] 2023-07-07 00:00:00 2023-07-07 00:00:00 [facility]ill [facility] MED[facility] OFF[facility] BU[facility] 1..840.114 350.1.13.10 4.2.7.2.686 [id number] 044 [id number] [facility] 2023-07-06 00:00:00 2023-07-06 00:00:00 Refill [facility] MED[facility] OFF[facility] BU[facility] 1.2.840.114 350.1.13.10 4.2.7.2.686 [id number] 044 [id number] [facility] 2023-07-01 15:15:00 2023-07-01 15:39:06 Outpatient R JEFFERSON WITT [facility] [id number] [facility] 2023-07-01 15:15:00 2023-07-01 15:39:06 Office Visit Jefferson Witt [facility] 1.840.114 350.1.13.10 4.2.7.2.686 [id number] 044 [id number] [facility] 2023-06-27 00:00:00 2023-06-27 00:00:00 Refill Jefferson Witt [facility] MEDICAL OFFICE BUILDING 1..114 350.1.13.10 4.2.7.2.686 [id number] 044 [id number] [facility] 2023-06-23 00:00:00 2023-06-23 00:00:00 Refill Jefferson Witt [facility] MED[facility] OFFICE BUILD[facility] 1.0.114 350.1.13.10 4.2.7.2.686 [id number] 044 [id number] [facility] 2023-06-17 00:00:00 2023-06-17 00:00:00 Orders Only Doctor Unassigned, Mcallister [facility] 1..114 350.1.13.10 4.2.7.2.686 [id number] [id number] [facility] 2023-06-15 00:00:00 2023-06-15 00:00:00 Telephone Jefferson Witt [facility] MED[facility] OFF[facility] BUILD[facility] 1..114 350.1.13.10 4.2.7.2.686 [id number] 044 [id number] [facility] 2023-06-08 00:00:00 2023-06-08 00:00:00 [facility] MEDICAL OFFICE BUILDING 1.20.114 350.1.13.10 4.2.7.2.686 [id number] 044 [id number] [facility] 2023-06-03 00:00:00 2023-06-03 00:00:00 Telephone Jefferson Witt [facility] MED[facility] OFF[facility] BUILDING 1.2840.114 350.1.13.10 4.2.7.2.686 [id number] 044 [id number] [facility] 2023-06-03 00:00:00 2023-06-03 00:00:00 Telephone Jefferson Witt [facility] MED[facility] OFFICE BUILD[facility] 1.2840.114 350.1.13.10 4.2.7.2.686 [id number] 044 [id number] [facility] 2023-05-19 00:00:00 2023-05-19 00:00:00 Telephone Jefferson Witt [facility] MED[facility] OFFICE BUILD[facility] 1.2840.114 350.1.13.10 4.2.7.2.686 [id number] 044 [id number] [facility] 2023-05-19 00:00:00 2023-05-19 00:00:00 Patient Secure Msg Doctor Unassigned, Mcallister [facility] 1.2840.114 350.1.13.10 4.2.7.2.686 [id number] 044 [id number] [facility] 2023-05-14 09:30:00 2023-05-14 09:30:00 Outpatient R JEFFERSON WITT [facility] [id number] [facility] 2023-05-13 00:00:00 2023-05-13 00:00:00 Refill [facility]A [facility] MED[facility] OFF[facility] BUILDING 1.2840.114 350.1.13.10 4.2.7.2.686 [id number] 044 [id number] [facility] 2023-05-13 00:00:00 2023-05-13 00:00:00 Refill Eduar [facility]?MARISELA [facility] MED[facility] OFF[facility] BUILDING 1..840.114 350.1.13.10 4.2.7.2.686 [id number] 044 [id number] [facility] 2023-05-13 00:00:00 2023-05-13 00:00:00 Giovany Morton [facility] MEDICAL OFFICE BUILDING 1.840.114 350.1.13.10 4.2.7.2.686 [id number] [facility] 2023-05-12 10:45:00 2023-05-12 11:00:00 Citrix Lead Visit Pob, Adc Lab Main Jefferson Witt [facility] BUILDING 1.840.114 350.1.13.10 4.2.7.2.686 [id number] [facility] 2023-05-12 10:45:00 2023-05-12 10:45:00 Outpatient JEFFERSON PEREZ [facility] [id number] [facility] 2023-05-11 14:15:00 2023-05-11 14:30:00 Citrix Lead Visit Lab, Fritz Witt [facility] MED[facility] OFF[facility] BUILDING 1.840.114 350.1.13.10 4.2.7.2.686 [id number] [facility] 2023-05-11 14:15:00 2023-05-11 14:15:00 Outpatient JEFFERSON PEREZ [facility] [id number] [facility] 2023-05-11 13:30:00 2023-05-11 13:45:00 Office Visit [facility] MED[facility] BUILD[facility] 1.840.114 350.1.13.10 4.2.7.2.686 [id number] 044 [id number] [facility] 2023-05-08 00:00:00 2023-05-08 00:00:00 Telephone Jefferson Witt [facility]?MARISELA [facility] MEDICAL OFF[facility] BUILDING 1.2840.114 350.1.13.10 4.2.7.2.686 [id number] 044 [id number] [facility] 2023-05-07 00:00:00 2023-05-07 00:00:00 Telephone Eduar Jefferson [facility] MEDICAL OFFICE BUILDING 1.2840.114 350.1.13.10 4.2.7.2.686 [id number] 044 [id number] [facility] 2023-05-06 10:00:00 2023-05-06 10:00:00 [facility] [id number] 2023-04-30 00:00:00 2023-04-30 00:00:00 Refill Eduar [facility] MEDICAL OFFICE BUILDING 1.2840.114 350.1.13.10 4.2.7.2.686 [id number] 044 [id number] [facility] 2023-04-30 00:00:00 2023-04-30 00:00:00 RefGiovany Waddell [facility] MEDICAL OFFICE BUILDING 1.2840.114 350.1.13.10 4.2.7.2.686 [id number] [facility] 2023-04-29 00:00:00 2023-04-29 00:00:00 Telephone Eduar [facility] MEDICAL OFFICE BUILDING 1.2840.114 350.1.13.10 4.2.7.2.686 [id number] 044 [id number] [facility] 2023-04-27 00:00:00 2023-04-27 00:00:00 Telephone Bassam Wittony [facility] 1.2.840.114 350.1.13.10 4.2.7.2.686 [id number] 044 [id number] [facility] 2023-04-20 00:00:00 2023-04-20 00:00:00 Orders Only Doctor Unassigned, Mcallister [facility] 1.2.840.114 350.1.13.10 4.2.7.2.686 [id number] [id number] [facility] 2023-04-15 00:00:00 2023-04-15 00:00:00 Telephone WittJefferson horvath [facility]?MARISELA [facility] MEDICAL OFFICE BUILDING 1.2.840.114 350.1.13.10 4.2.7.2.686 [id number] 044 [id number] [facility] 2023-04-13 00:00:00 2023-04-13 00:00:00 Refill Jefferson Witt [facility] 1.2.840.114 350.1.13.10 4.2.7.2.686 [id number] 044 [id number] [facility] 2023-04-13 00:00:00 2023-04-13 00:00:00 Telephone Jefferson Witt [facility] MED[facility] OFF[facility] BUILDING 1.2.840.114 350.1.13.10 4.2.7.2.686 [id number] 044 [id number] [facility] 2023-04-08 09:30:00 2023-04-08 09:46:20 Outpatient R JEFFERSON WITT [facility] [id number] [facility] 2023-04-08 09:30:00 2023-04-08 09:46:20 [facility] 1.2840.114 350.1.13.10 4.2.7.2.686 [id number] 044 [id number] [facility] 2023-04-07 00:00:00 2023-04-07 00:00:00 Telephone Jefferson Witt [facility] 1.2840.114 350.1.13.10 4.2.7.2.686 [id number] 044 [id number] [facility] 2023-04-02 10:15:00 2023-04-02 10:15:00 Outpatient R JEFFERSON WITT [facility] [id number] [facility] 2023-03-30 12:00:00 2023-03-30 12:00:00 Outpatient R JEFFERSON WITT [facility] [id number] [facility] 2023-03-28 00:00:00 2023-03-28 00:00:00 Nurse Triage Alana Baptiste [facility] 1.840.114 350.1.13.10 4.2.7.2.686 [id number] [facility] 2023-03-28 00:00:00 2023-03-28 00:00:00 Refill Eduar [facility] MED[facility] OFF[facility] BUILDING 1.2840.114 350.1.13.10 4.2.7.2.686 [id number] 044 [id number] [facility] 2023-03-27 00:00:00 2023-03-27 00:00:00 Telephone Jefferson Witt [facility] 1.2840.114 350.1.13.10 4.2.7.2.686 [id number] 044 [id number] [facility] 2023-03-26 13:00:00 2023-03-26 13:15:00 Office Visit Eduar [facility] 1.84114 350.1.13.10 4.2.7.2.686 [id number] 044 [id number] [facility] 2023-03-26 13:00:00 2023-03-26 13:00:00 Outpatient R JEFFERSON WITT [facility] [id number] [facility] 2023-03-26 00:00:00 2023-03-26 00:00:00 Telephone Eduar [facility] 1.114 350.1.13.10 4.2.7.2.686 [id number] 044 [id number] [facility] 2023-03-23 12:57:00 2023-03-23 12:57:00 Outpatient MAGDY Fer, [place] [facility] [id number] 93 [facility] 2023-03-20 12:30:00 2023-03-20 12:30:00 Outpatient ROSETTE ROME [facility] [id number] [facility] 2023-03-16 00:00:00 2023-03-16 00:00:00 Refill Giovany Antoine [facility] 1.114 350.1.13.10 4.2.7.2.686 [id number] [facility] 2023-03-10 00:00:00 2023-03-10 00:00:00 Orders Only Doctor Unassigned, Mcallister [facility] 1.114 350.1.13.10 4.2.7.2.686 [id number] [facility] 2023-02-24 00:00:00 2023-02-24 00:00:00 Telephone Giovany Antoine [facility] 1.114 350.1.13.10 4.2.7.2.686 [id number] [facility] 2023-02-23 00:00:00 2023-02-23 00:00:00 Orders Only Doctor Unassigned, Mcallister [facility] 1.20.114 350.1.13.10 4.2.7.2.686 [id number] [id number] [facility] 2023-02-20 00:00:00 2023-02-20 00:00:00 Refill Giovany Antoine [facility] MEDICAL OFFICE BUILDING 1.84.114 350.1.13.10 4.2.7.2.686 [id number] [facility] 2023-02-20 00:00:00 2023-02-20 00:00:00 Refill Eduar [facility] MEDICAL OFFICE BUILDING 1.284.114 350.1.13.10 4.2.7.2.686 [id number] 044 [id number] [facility] 2023-02-13 11:00:00 2023-02-13 11:00:00 Outpatient R GIOVANY [facility] [id number] [facility] 2023-02-12 00:00:00 2023-02-12 00:00:00 Refill Eduar [facility] MED[facility] OFF[facility] BUILDING 1.284.114 350.1.13.10 4.2.7.2.686 [id number] 044 [id number] [facility] 2023-02-11 09:45:00 2023-02-11 10:00:00 [facility] MED[facility] OFFICE BUILDING 1.284.114 350.1.13.10 4.2.7.2.686 [id number] 044 [id number] [facility] 2023-02-11 09:45:00 2023-02-11 09:45:00 Outpatient R JEFFERSON WITT [facility] [id number] [facility] 2023-02-05 00:00:00 2023-02-05 00:00:00 [facility]phone [facility] 1.2.840.114 350.1.13.10 4.2.7.2.686 [id number] 044 [id number] [facility] 2023-02-04 00:00:00 2023-02-04 00:00:00 Telephone Jefferson Witt [facility]A [facility] MEDICAL OFF[facility] BUILDING 1.2.840.114 350.1.13.10 4.2.7.2.686 [id number] 044 [id number] [facility] 2023-01-26 00:00:00 2023-01-26 00:00:00 [facility] MEDICAL OFFICE BUILDING 1.2.840.114 350.1.13.10 4.2.7.2.686 [id number] 044 [id number] [facility] 2023-01-26 00:00:00 2023-01-26 00:00:00 Telephone [facility]?MARISELA [facility] MEDICAL OFFICE BUILDING 1.2.840.114 350.1.13.10 4.2.7.2.686 [id number] 044 [id number] [facility] 2023-01-24 11:00:00 2023-01-24 11:20:00 Urgent Care Richard Vidal, Attending [facility] MEDICAL OFFICE BUILDING 1.2.840.114 350.1.13.10 4.2.7.2.686 [id number] [facility] 2023-01-24 11:00:00 2023-01-24 11:00:00 Outpatient R RICHARD VIDAL [facility] [id number] [facility] 2023-01-24 00:00:00 2023-01-24 00:00:00 Orders Only Doctor Unassigned, Mcallister [facility] 1.84.114 350.1.13.10 4.2.7.2.686 [id number] [facility] 2023-01-19 00:00:00 2023-01-19 00:00:00 Telephone Giovany Antoine [facility]?MARISELA [facility] MEDICAL OFFICE BUILDING 1.840.114 350.1.13.10 4.2.7.2.686 [id number] [facility] 2023-01-12 10:15:00 2023-01-12 10:15:00 Outpatient R JEFFERSON WITT [facility] [id number] [facility] 2023-01-09 00:00:00 2023-01-09 00:00:00 Refill Jefferson Witt [facility]?MARISELA [facility] MEDICAL OFFICE BUILDING 1.840.114 350.1.13.10 4.2.7.2.686 [id number] 044 [id number] [facility] 2023-01-09 00:00:00 2023-01-09 00:00:00 Refill Eduar Jefferson [facility] MEDICAL OFFICE BUILDING 1.840.114 350.1.13.10 4.2.7.2.686 [id number] 044 [id number] [facility] 2023-01-07 00:00:00 2023-01-07 00:00:00 Telephone Eduar Jefferson [facility] MEDICAL OFFICE BUILDING 1.840.114 350.1.13.10 4.2.7.2.686 [id number] 044 [id number] [facility] 2023-01-02 00:00:00 2023-01-02 00:00:00 Refill Daniel Castellon [facility]?MARISELA [facility] MEDICAL OFFICE BUILDING 1.2840.114 350.1.13.10 4.2.7.2.686 [id number] 044 [id number] [facility] 2023-01-01 00:00:00 2023-01-01 00:00:00 Refill Eduar [facility] MEDICAL OFFICE BUILDING 1.2840.114 350.1.13.10 4.2.7.2.686 [id number] 044 [id number] [facility] 2023-01-01 00:00:00 2023-01-01 00:00:00 Telephone Jefferson Witt [facility] MEDICAL OFFICE BUILDING 1.2840.114 350.1.13.10 4.2.7.2.686 [id number] 044 [id number] [facility] 2022-12-31 00:00:00 2022-12-31 00:00:00 Telephone Eduar [facility] MEDICAL OFFICE BUILDING 1.2840.114 350.1.13.10 4.2.7.2.686 [id number] 044 [id number] [facility] 2022-12-28 00:00:00 2022-12-28 00:00:00 DoniGiovany Waddell [facility] MED[facility] OFFICE BUILDING 1.2840.114 350.1.13.10 4.2.7.2.686 [id number] [facility] 2022-12-24 00:00:00 2022-12-24 00:00:00 Telephone [facility] 1.2840.114 350.1.13.10 4.2.7.2.686 [id number] [id number] [facility] 2022-12-22 10:30:00 2022-12-22 10:46:35 Outpatient DANIEL APARICIO [facility] [id number] [facility] 2022-12-22 10:30:00 2022-12-22 10:46:35 Office Visit Dainel [facility]ell[facility] 1.2840.114 350.1.13.10 4.2.7.2.686 [id number] 044 [id number] [facility] 2022-12-22 00:00:00 2022-12-22 00:00:00 Orders Only Doctor Unassigned, Mcallister [facility] 1.2840.114 350.1.13.10 4.2.7.2.686 [id number] [facility] 2022-12-17 00:00:00 2022-12-17 00:00:00 [facility]ill [facility]?MAR[facility]ELA [facility] MEDICAL OFF[facility] BUILDING 1.2840.114 350.1.13.10 4.2.7.2.686 [id number] 044 [id number] [facility] 2022-12-16 00:00:00 2022-12-16 00:00:00 Refill Witt, [facility]?MAR[facility]ELA [facility] MEDICAL OFF[facility] BUILDING 1.2840.114 350.1.13.10 4.2.7.2.686 [id number] 044 [id number] [facility] 2022-12-15 00:00:00 2022-12-15 00:00:00 Refill [facility]?MAR[facility]ELA [facility] MEDICAL OFF[facility] BUILDING 1.2840.114 350.1.13.10 4.2.7.2.686 [id number] 044 [id number] [facility] 2022-12-15 00:00:00 2022-12-15 00:00:00 Telephone Witt [facility]?MARISELA [facility] MEDICAL OFF[facility] BUILDING 1.2840.114 350.1.13.10 4.2.7.2.686 [id number] 044 [id number] [facility] 2022-12-11 00:00:00 2022-12-11 00:00:00 Telephone [facility] MEDICAL OFFICE BUILDING 1.2.840.114 350.1.13.10 4.2.7.2.686 [id number] 044 [id number] [facility] 2022-12-10 00:00:00 2022-12-10 00:00:00 Telephone Eduar Jefferson [facility] MED[facility] OFFICE BUILDING 1.2840.114 350.1.13.10 4.2.7.2.686 [id number] 044 [id number] [facility] 2022-12-09 00:00:00 2022-12-09 00:00:00 Telephone Eduar [facility] MEDICAL OFFICE BUILDING 1.2840.114 350.1.13.10 4.2.7.2.686 [id number] 044 [id number] [facility] 2022-12-08 00:00:00 2022-12-08 00:00:00 Telephone Eduar [facility] MEDICAL OFFICE BUILDING 1.2840.114 350.1.13.10 4.2.7.2.686 [id number] 044 [id number] [facility] 2022-12-08 00:00:00 2022-12-08 00:00:00 Orders Only Doctor Unassigned, Mcallister [facility] 1.2.840.114 350.1.13.10 4.2.7.2.686 [id number] [facility] 2022-12-06 00:00:00 2022-12-06 00:00:00 Marylou Ambrose [facility] OFF[facility] BUILD[facility] 1.2840.114 350.1.13.10 4.2.7.2.686 [id number] [facility] 2022-12-06 00:00:00 2022-12-06 00:00:00 Refill Eduar [facility] 1.840.114 350.1.13.10 4.2.7.2.686 [id number] [facility] 2022-12-03 08:45:00 2022-12-03 08:45:00 Outpatient JEFFERSON PEREZ [facility] [id number] [facility] 2022-12-03 00:00:00 2022-12-03 00:00:00 Telephone [facility] 1.840.114 350.1.13.10 4.2.7.2.686 [id number] [facility] 2022-12-01 00:00:00 2022-12-01 00:00:00 Telephone [facility]ov[facility] 1.840.114 350.1.13.10 4.2.7.2.686 [id number] [facility] 2022-11-27 10:30:00 2022-11-27 10:45:00 [facility] Lead Visit Lab, Fritz Witt Replaced by [facility] 1.840.114 350.1.13.10 4.2.7.2.686 [id number] [facility] 2022-11-27 10:30:00 2022-11-27 10:30:00 Outpatient Hany WITT JEFFERSON [facility] [id number] [facility] 2022-11-27 10:00:00 2022-11-27 10:15:00 Office Visit Eduar [facility] [place] 1.840.114 350.1.13.10 4.2.7.2.686 [id number] [facility] 2022-11-25 00:00:00 2022-11-25 00:00:00 Orders Only Doctor Unassigned, [facility] 1.2.840.114 350.1.13.10 4.2.7.2.686 [id number] [facility] 2022-11-13 00:00:00 2022-11-13 00:00:00 Orders Only Doctor Unassigned, [facility] 1.2840.114 350.1.13.10 4.2.7.2.686 [id number] [facility] 2022-11-12 09:30:00 2022-11-12 09:45:52 Outpatient R JEFFERSON WITT [facility] [id number] [facility] 2022-11-12 09:30:00 2022-11-12 09:45:52 Office Visit Eduar Replaced [facility] 1.20.114 350.1.13.10 4.2.7.2.686 [id number] [facility] 2022-11-12 00:00:00 2022-11-12 00:00:00 Telephone Eduar [facility] [place] 1.2840.114 350.1.13.10 4.2.7.2.686 [id number] [facility] 2022-11-12 00:00:00 2022-11-12 00:00:00 Refill Eduar [facility] [place] 1.2840.114 350.1.13.10 4.2.7.2.686 [id number] [facility] 2022-11-10 09:20:00 2022-11-10 09:20:00 Outpatient R CLAUDIA PORTER [facility] [id number] [facility] 2022-11-07 00:00:00 2022-11-07 00:00:00 Telephone Eduar [facility] 1.840.114 350.1.13.10 4.2.7.2.686 [id number] [facility] 2022-11-06 12:30:00 2022-11-06 12:30:00 Outpatient R [facility] [id number] [facility] 2022-11-04 00:00:00 2022-11-04 00:00:00 Telephone Eduar [facility] MED[facility] OFF[facility] BUILDING 1.840.114 350.1.13.10 4.2.7.2.686 [id number] 044 [id number] [facility] 2022-11-04 00:00:00 2022-11-04 00:00:00 Patient Secure Msg Doctor Unassigned, Mcallister [facility] 1.840.114 350.1.13.10 4.2.7.2.686 [id number] 019 [id number] [facility] 2022-11-03 12:30:00 2022-11-03 12:30:00 Outpatient R JEFFERSON WITT [facility] [id number] [facility] 2022-10-30 11:30:00 2022-10-30 11:50:04 Outpatient R ROSETTE CONTRERAS [facility] [id number] [facility] 2022-10-30 11:30:00 2022-10-30 11:50:04 Office Visit Rosette Contreras [facility] MEDICAL OFFICE BUILDING 1.840.114 350.1.13.10 4.2.7.2.686 [id number] 044 [id number] [facility] 2022-10-30 00:00:00 2022-10-30 00:00:00 Orders Only Doctor Unassigned, Mcallister [facility] 1.2840.114 350.1.13.10 4.2.7.2.686 [id number] 009 [id number] [facility] 2022-10-30 00:00:00 2022-10-30 00:00:00 Telephone Claudia Porter [facility] NAL BUILDING 1.284.114 350.1.13.10 4.2.7.2.686 [id number] 059 [id number] [facility] 2022-10-29 08:30:00 2022-10-29 08:30:00 Outpatient R JEFFERSON WITT [facility] [id number] [facility] 2022-10-28 00:00:00 2022-10-28 00:00:00 [facility] MEDICAL OFFICE BUILDING 1.84.114 350.1.13.10 4.2.7.2.686 [id number] 044 [id number] [facility] 2022-10-24 00:00:00 2022-10-24 00:00:00 Refill Eduar [facility] MED[facility] OFF[facility] BUILD[facility] 1.84.114 350.1.13.10 4.2.7.2.686 [id number] 044 [id number] [facility] 2022-10-23 00:00:00 2022-10-23 00:00:00 Telephone Eduar [facility] OFFICE BUILDING 1.284.114 350.1.13.10 4.2.7.2.686 [id number] 044 [id number] [facility] 2022-10-22 00:00:00 2022-10-22 00:00:00 Orders Only Doctor Unassigned, Mcallister [facility] 1.2.840.114 350.1.13.10 4.2.7.2.686 [id number] [id number] [facility] 2022-10-20 00:00:00 2022-10-20 00:00:00 Telephone Witt [facility] 1.2840.114 350.1.13.10 4.2.7.2.686 [id number] 044 [id number] [facility] 2022-10-16 00:00:00 2022-10-16 00:00:00 Telephone [facility] 1.2.114 350.1.13.10 4.2.7.2.686 [id number] 059 [id number] [facility] 2022-10-15 00:00:00 2022-10-15 00:00:00 Refill Witt [facility] MEDICAL OFF[facility] BUILDING 1.284.114 350.1.13.10 4.2.7.2.686 [id number] 044 [id number] [facility] 2022-10-13 00:00:00 2022-10-13 00:00:00 Orders Only Doctor Unassigned, Mcallister [facility] 1.2840.114 350.1.13.10 4.2.7.2.686 [id number] [facility] 2022-10-09 12:30:00 2022-10-09 12:30:00 Outpatient R ROSETTE CONTRERAS [facility] [id number] [facility] 2022-10-09 08:30:00 2022-10-09 08:30:00 Outpatient R ION HOBBS [facility] [id number] [facility] 2022-10-06 00:00:00 2022-10-06 00:00:00 Refill Eduar [facility] MEDICAL OFFICE BUILDING 1.2.840.114 350.1.13.10 4.2.7.2.686 [id number] 044 [id number] [facility] 2022-10-03 00:00:00 2022-10-03 00:00:00 Telephone Claudia Porter [facility] BUILDING 1.2840.114 350.1.13.10 4.2.7.2.686 [id number] 059 [id number] [facility] 2022-10-01 13:00:00 2022-10-01 13:00:00 Outpatient R CLAUDIA PORTER [facility] [id number] [facility] 2022-09-30 00:00:00 2022-09-30 00:00:00 Orders Only Doctor Unassigned, Mcallister [facility] 1.2840.114 350.1.13.10 4.2.7.2.686 [id number] [id number] [facility] 2022-09-25 00:00:00 2022-09-25 00:00:00 Orders Only Doctor Unassigned, Mcallister [facility] 1.2840.114 350.1.13.10 4.2.7.2.686 [id number] [id number] [facility] 2022-09-24 00:00:00 2022-09-24 00:00:00 Telephone Jefferson Witt [facility] 1.2840.114 350.1.13.10 4.2.7.2.686 [id number] 044 [id number] [facility] 2022-09-23 00:00:00 2022-09-23 00:00:00 Telephone Jefferson Witt [facility] 1.2840.114 350.1.13.10 4.2.7.2.686 [id number] 044 [id number] [facility] 2022-09-22 00:00:00 2022-09-22 00:00:00 Marylou Ambrose [facility] 1.2840.114 350.1.13.10 4.2.7.2.686 [id number] [facility] 2022-09-19 10:30:00 2022-09-19 10:30:00 Outpatient R [facility]OVANY [facility]INE [facility] [id number] [facility] 2022-09-19 00:00:00 2022-09-19 00:00:00 Orders Only Doctor Unassigned, Mcallister [facility] 1.2840.114 350.1.13.10 4.2.7.2.686 [id number] [id number] [facility] 2022-09-18 00:00:00 2022-09-18 00:00:00 Telephone Giovany Antoine [facility] MED[facility] OFF[facility] BUILDING 1.84.114 350.1.13.10 4.2.7.2.686 [id number] [facility] 2022-09-17 00:00:00 2022-09-17 00:00:00 Telephone Eduar Jefferson [facility] 1.84.114 350.1.13.10 4.2.7.2.686 [id number] 044 [id number] [facility] 2022-09-15 00:00:00 2022-09-15 00:00:00 Telephone Giovany Antoine [facility] 1.2840.114 350.1.13.10 4.2.7.2.686 [id number] [facility] 2022-09-11 00:00:00 2022-09-11 00:00:00 Telephone Bassam Wittony [facility]?MARISELA [facility] MEDICAL OFFICE BUILDING 1.2840.114 350.1.13.10 4.2.7.2.686 [id number] 044 [id number] [facility] 2022-09-10 09:00:00 2022-09-10 09:30:00 [facility] BU[facility] 1.2840.114 350.1.13.10 4.2.7.2.686 [id number] 044 [id number] [facility] 2022-09-10 09:00:00 2022-09-10 09:00:00 Outpatient R JEFFERSON WITT [facility] [id number] [facility] 2022-09-10 00:00:00 2022-09-10 00:00:00 [facility]ill [facility] MEDICAL OFFICE BUILDING 1.840.114 350.1.13.10 4.2.7.2.686 [id number] 044 [id number] [facility] 2022-09-04 00:00:00 2022-09-04 00:00:00 Orders Only Doctor Unassigned, Mcallister [facility] 1.840.114 350.1.13.10 4.2.7.2.686 [id number] [id number] [facility] 2022-09-02 00:00:00 2022-09-02 00:00:00 Refill Eduar [facility] MEDICAL OFFICE BUILDING 1.2840.114 350.1.13.10 4.2.7.2.686 [id number] 044 [id number] [facility] 2022-09-02 00:00:00 2022-09-02 00:00:00 Telephone Eduar [facility] MEDICAL OFFICE BUILDING 1.2840.114 350.1.13.10 4.2.7.2.686 [id number] 044 [id number] [facility] 2022-09-01 00:00:00 2022-09-01 00:00:00 Telephone [facility] 1.2.840.114 350.1.13.10 4.2.7.2.686 [id number] 044 [id number] [facility] 2022-08-25 00:00:00 2022-08-25 00:00:00 Telephone Jefferson Witt [facility] 1.2.840.114 350.1.13.10 4.2.7.2.686 [id number] 044 [id number] [facility] 2022-08-20 00:00:00 2022-08-20 00:00:00 Refill Eduar [facility]?MARISELA [facility] MEDICAL OFFICE BUILDING 1.2.840.114 350.1.13.10 4.2.7.2.686 [id number] 044 [id number] [facility] 2022-08-20 00:00:00 2022-08-20 00:00:00 Orders Only Doctor Unassigned, Mcallister [facility] 1.2.840.114 350.1.13.10 4.2.7.2.686 [id number] [id number] [facility] 2022-08-16 00:00:00 2022-08-16 00:00:00 Refill Marylou Gamino [facility] MEDICAL OFFICE BUILDING 1.2.840.114 350.1.13.10 4.2.7.2.686 [id number] [facility] 2022-08-16 00:00:00 2022-08-16 00:00:00 Refill Eduar Jefferson [facility] [place] 1.2.840.114 350.1.13.10 4.2.7.2.686 [id number] 044 [id number] [facility] 2022-08-14 00:00:00 2022-08-14 00:00:00 Telephone Jefferson Witt [facility] 1.2.840.114 350.1.13.10 4.2.7.2.686 [id number] 044 [id number] [facility] 2022-08-11 00:00:00 2022-08-11 00:00:00 Orders Only Doctor Unassigned, Mcallister [facility] 1.2.840.114 350.1.13.10 4.2.7.2.686 [id number] [id number] [facility] 2022-08-09 00:00:00 2022-08-09 00:00:00 Telephone Jefferson Witt [facility] 1.2.840.114 350.1.13.10 4.2.7.2.686 [id number] 044 [id number] [facility] 2022-08-08 00:00:00 2022-08-08 00:00:00 Telephone Jefferson Witt [facility]MARISELA [facility] MEDICAL OFFICE BUILDING 1.2.840.114 350.1.13.10 4.2.7.2.686 [id number] 044 [id number] [facility] 2022-08-08 00:00:00 2022-08-08 00:00:00 Telephone Jefferson Witt [facility]MARISELA [facility] MEDICAL OFFICE BUILDING 1.2.840.114 350.1.13.10 4.2.7.2.686 [id number] 044 [id number] [facility] 2022-08-07 12:00:00 2022-08-07 12:15:00 Office Visit Jefferson Witt [facility] MEDICAL OFF[facility] BUILDING 1.2.840.114 350.1.13.10 4.2.7.2.686 [id number] 044 [id number] [facility] 2022-08-07 12:00:2022-08-07 12:00:00 Outpatient JEFFERSON PEREZ [facility] [id number] [facility] 2022-08-03 00:00:00 2022-08-03 00:00:00 Nurse Triage Faustina Oleg Leach [facility] 1.2.840.114 350.1.13.10 4.2.7.2.686 [id number] 019 [id number] [facility] 2022-08-03 00:00:00 2022-08-03 00:00:00 Orders Only Doctor Unassigned, Mcallister [facility] 1.2.840.114 350.1.13.10 4.2.7.2.686 [id number] [id number] [facility] 2022-07-29 00:00:00 2022-07-29 00:00:00 Refprabhjot Witt [facility] MEDICAL OFFICE BUILDING 1.2.840.114 350.1.13.10 4.2.7.2.686 [id number] 044 [id number] [facility] 2022-07-22 00:00:00 2022-07-22 00:00:00 RefMarylou Lerma [facility] MEDICAL OFFICE BUILDING 1.2.840.114 350.1.13.10 4.2.7.2.686 [id number] [facility] 2022-07-21 00:00:00 2022-07-21 00:00:00 Telephone Claudia Porter [facility] BUILDING 1.2.840.114 350.1.13.10 4.2.7.2.686 [id number] 059 [id number] [facility] 2022-07-19 13:12:00 2022-07-19 16:24:00 Emergency X [facility] ERT [id number] [facility] 2022-07-19 13:12:00 2022-07-19 16:24:00 Emergency Jesus Spain [facility] 1.2840.114 350.1.13.10 4.2.7.2.686 [id number] 084 [id number] [facility] 2022-07-17 00:00:00 2022-07-17 00:00:00 Telephone Jefferson Witt [facility] 1.2840.114 350.1.13.10 4.2.7.2.686 [id number] 044 [id number] [facility] 2022-07-16 10:30:00 2022-07-16 11:00:00 Office Visit Rachell Cheng [facility] BUILDING 1.2840.114 350.1.13.10 4.2.7.2.686 [id number] [facility] 2022-07-16 10:30:00 2022-07-16 10:30:00 Outpatient R [facility] [id number] [facility] 2022-07-15 00:00:00 2022-07-15 00:00:00 Telephone Jefferson Witt [facility] BU[facility] 1.20.114 350.1.13.10 4.2.7.2.686 [id number] 044 [id number] [facility] 2022-07-14 00:00:00 2022-07-14 00:00:00 Telephone Claudia Porter [facility] BUILDING 1.840.114 350.1.13.10 4.2.7.2.686 [id number] 059 [id number] [facility] 2022-07-07 00:00:00 2022-07-07 00:00:00 Telephone Claudia Porter [facility] NAL BUILDING 1.2840.114 350.1.13.10 4.2.7.2.686 [id number] 059 [id number] [facility] 2022-07-03 11:30:00 2022-07-03 11:30:00 Outpatient R ROSETTE CONTRERAS [facility] [id number] [facility] 2022-07-02 00:00:00 2022-07-02 00:00:00 Refill Witt, [facility] MEDICAL OFFICE BUILDING 1.2840.114 350.1.13.10 4.2.7.2.686 [id number] 044 [id number] [facility] 2022-06-30 00:00:00 2022-06-30 00:00:00 Refill Eduar Jefferson [facility] MEDICAL OFFICE BUILDING 1.840.114 350.1.13.10 4.2.7.2.686 [id number] 044 [id number] [facility] 2022-06-30 00:00:00 2022-06-30 00:00:00 Telephone Claudia Porter [facility] 1.84.114 350.1.13.10 4.2.7.2.686 [id number] 059 [id number] [facility] 2022-06-25 00:00:00 2022-06-25 00:00:00 Telephone Rosette Contreras [facility] MEDICAL OFFICE BUILDING 1.284.114 350.1.13.10 4.2.7.2.686 [id number] 044 [id number] [facility] 2022-06-19 13:00:00 2022-06-19 13:15:00 Citrix Lead Visit [facility] Sleep Lab Rachell Cheng [facility] 1.2840.114 350.1.13.10 4.2.7.2.686 [id number] [facility] 2022-06-19 13:00:00 2022-06-19 13:00:00 Outpatient R CHRISHOARACHELL MARTINEZHOAMICHELLE [facility] [id number] [facility] 2022-06-19 00:00:00 2022-06-19 00:00:00 Orders Only Doctor Unassigned, Mcallister [facility] 1.2.840.114 350.1.13.10 4.2.7.2.686 [id number] [id number] [facility] 2022-06-19 00:00:00 2022-06-19 00:00:00 Refill Eduar [facility] MEDICAL OFFICE BUILDING 1.2.840.114 350.1.13.10 4.2.7.2.686 [id number] 044 [id number] [facility] 2022-06-18 13:00:00 2022-06-18 13:00:00 Outpatient R [facility] [id number] [facility] 2022-06-17 00:00:00 2022-06-17 00:00:00 Telephone Jefferson Witt [facility] MEDICAL OFFICE BUILDING 1.2.840.114 350.1.13.10 4.2.7.2.686 [id number] 044 [id number] [facility] 2022-06-17 00:00:00 2022-06-17 00:00:00 Patient Secure Msg Doctor Unassigned, Mcallister [facility] MEDICAL OFFICE BUILDING 1.2.840.114 350.1.13.10 4.2.7.2.686 [id number] 044 [id number] [facility] 2022-06-16 11:44:53 2022-06-16 11:44:53 Outpatient [facility] [id number] Glen Gutierrez 2022-06-16 00:00:00 2022-06-16 00:00:00 Telephone Claudia Porter [facility] BUILDING 1.2.840.114 350.1.13.10 4.2.7.2.686 [id number] 059 [id number] [facility] 2022-06-13 11:15:00 2022-06-13 11:30:00 Citrix Lead Visit 2, Adc Lab Claudia Porter [facility] BUILDING 1.2.840.114 350.1.13.10 4.2.7.2.686 [id number] [facility] 2022-06-13 11:15:00 2022-06-13 11:15:00 Outpatient R CLAUDIA PORTER [facility] [id number] [facility] 2022-06-12 00:00:00 2022-06-12 00:00:00 Telephone Claudia Porter [facility] 1.2.840.114 350.1.13.10 4.2.7.2.686 [id number] [facility] 2022-06-12 00:00:00 2022-06-12 00:00:00 Telephone Jefferson Witt [facility] 1.2.840.114 350.1.13.10 4.2.7.2.686 [id number] 044 [id number] [facility] 2022-06-11 10:08:55 2022-06-11 23:59:00 Outpatient R JEFFERSON WITT [facility] [id number] [facility] 2022-06-11 10:08:55 2022-06-11 23:59:00 Hospital Encounter Jefferson Witt [facility] 1.2.840.114 350.1.13.10 4.2.7.2.686 [id number] [facility] 2022-06-10 14:20:00 2022-06-10 16:26:04 Outpatient R CLAUDIA PORTER [facility] [id number] [facility] 2022-06-10 14:20:00 2022-06-10 16:26:04 Office Visit Claudia Porter [facility] NAL BUILDING 1.2.84.114 350.1.13.10 4.2.7.2.686 [id number] [facility] 2022-06-05 00:00:00 2022-06-05 00:00:00 Refill Marylou Gamino [facility] OFFICE BUILDING 1.84.114 350.1.13.10 4.2.7.2.686 [id number] [facility] 2022-06-04 10:30:00 2022-06-04 11:55:43 Outpatient R ROSETTE CONTRERAS [facility] [id number] [facility] 2022-06-04 10:30:00 2022-06-04 11:55:43 Office Visit Rosette Contreras Ulices [facility] OFFICE BUILDING 1.84.114 350.1.13.10 4.2.7.2.686 [id number] 044 [id number] [facility] 2022-06-04 00:00:00 2022-06-04 00:00:00 Refill Jefferson Witt [facility] MEDICAL OFFICE BUILDING 1.284.114 350.1.13.10 4.2.7.2.686 [id number] 044 [id number] [facility] 2022-05-29 10:17:00 2022-05-29 14:59:00 Emergency X [facility] ERT [id number] [facility] 2022-05-29 10:17:00 2022-05-29 14:59:00 Emergency Daylin Mojica G [facility] 1.284.114 350.1.13.10 4.2.7.2.686 [id number] [id number] [facility] 2022-05-29 00:00:00 2022-05-29 00:00:00 [facility] MED[facility] OFF[facility] BUILDING 1.2.840.114 350.1.13.10 4.2.7.2.686 [id number] 044 [id number] [facility] 2022-05-29 00:00:00 2022-05-29 00:00:00 Refill Eduar Jefferson [facility] MED[facility] OFF[facility] BUILDING 1.2.840.114 350.1.13.10 4.2.7.2.686 [id number] 044 [id number] [facility] 2022-05-27 00:00:00 2022-05-27 00:00:00 Telephone Jefferson Witt [facility] MED[facility] OFF[facility] BUILDING 1.2.840.114 350.1.13.10 4.2.7.2.686 [id number] 044 [id number] [facility] 2022-05-27 00:00:00 2022-05-27 00:00:00 Telephone Team, [facility] 1.2.840.114 350.1.13.10 4.2.7.2.686 [id number] [facility] 2022-05-23 16:30:00 2022-05-23 17:15:04 Outpatient R GIOVANY ANTOINE [facility] [id number] [facility] 2022-05-23 16:30:00 2022-05-23 17:15:04 Office Visit Giovany Antoine [facility] MEDICAL OFFICE BUILDING 1.2.840.114 350.1.13.10 4.2.7.2.686 [id number] [facility] 2022-05-23 16:30:00 2022-05-23 16:30:00 Outpatient R GIOVANY ANTOINE [facility] [id number] [facility] 2022-05-23 00:00:00 2022-05-23 00:00:00 [facility] 1.2.840.114 350.1.13.10 4.2.7.2.686 [id number] [facility] 2022-05-23 00:00:00 2022-05-23 00:00:00 Refill Eduar [facility] 1.2.840.114 350.1.13.10 4.2.7.2.686 [id number] [id number] [facility] 2022-05-20 00:00:00 2022-05-20 00:00:00 Refill Eduar [facility] 1.2.840.114 350.1.13.10 4.2.7.2.686 [id number] [facility] 2022-05-08 12:00:00 2022-05-08 12:18:22 Outpatient R JEFFERSON WITT [facility] [id number] [facility] 2022-05-08 12:00:00 2022-05-08 12:18:22 Office Visit Eduar [facility] 1.2.840.114 350.1.13.10 4.2.7.2.686 [id number] [facility] 2022-05-08 12:00:00 2022-05-08 12:00:00 Outpatient R JEFFERSON WITT [facility] [id number] [facility] 2022-05-08 00:00:00 2022-05-08 00:00:00 [facility] 1.2840.114 350.1.13.10 4.2.7.2.686 [id number] [id number] [facility] 2022-05-08 00:00:00 2022-05-08 00:00:00 Orders Only Doctor Unassigned, Mcallister [facility] 1.2840.114 350.1.13.10 4.2.7.2.686 [id number] [facility] 2022-05-07 00:00:00 2022-05-07 00:00:00 Refill Eduar Jefferson [facility] [place]?[facility] 1.2.114 350.1.13.10 4.2.7.2.686 [id number] 044 [id number] [facility] 2022-05-06 00:00:00 2022-05-06 00:00:00 Refill Eduar [facility] [place]?[facility] 1.0.114 350.1.13.10 4.2.7.2.686 [id number] [id number] [facility] 2022-04-29 00:00:00 2022-04-29 00:00:00 Refill Marylou Gamino [facility] [place] 1.2840.114 350.1.13.10 4.2.7.2.686 [id number] [facility] 2022-04-24 00:00:00 2022-04-24 00:00:00 Outpatient JEFFERSON PEREZ [facility] [id number] [facility] 2022-04-24 00:00:00 2022-04-24 00:00:00 Refprabhjot Witt [facility] [place]?[facility] 1.2840.114 350.1.13.10 4.2.7.2.686 [id number] [id number] [facility] 2022-04-23 00:00:00 2022-04-23 00:00:00 [facility] 1.2.840.114 350.1.13.10 4.2.7.2.686 [id number] [id number] [facility] 2022-04-23 00:00:00 2022-04-23 00:00[facility]00 [facility] CenterTAMELA GLEASON?[facility] MEDICAL OFFICE BUILDING 1.2.840.114 350.1.13.10 4.2.7.2.686 [id number] 044 [id number] [facility] 2022-04-09 00:00:00 2022-04-09 00:00:00 Refill [facility] [place]?[facility] MEDICAL OFFICE BUILDING 1..840.114 350.1.13.10 4.2.7.2.686 [id number] [id number] [facility] 2022-04-08 00:00:00 2022-04-08 00:00:00 Telephone [facility] [place] MEDICAL OFFICE BUILDING 1.2.840.114 350.1.13.10 4.2.7.2.686 [id number] [id number] [facility] 2022-03-31 00:00:00 2022-03-31 00:00:00 Refill [facility] [place]?[facility] MEDICAL OFFICE BUILDING 1.2.840.114 350.1.13.10 4.2.7.2.686 [id number] [facility] 2022-03-27 13:20:00 2022-03-27 13:20:00 Outpatient R JEFFERSON WITT [facility] [id number] [facility] 2022-03-26 00:00:00 2022-03-26 00:00:00 [facility] MEDICAL OFFICE BUILDING 1.2840.114 350.1.13.10 4.2.7.2.686 [id number] [id number] [facility] 2022-03-11 00:00:00 2022-03-11 00:00:00 [facility]ill [facility] MED[facility] OFF[facility] BUILDING 1.2840.114 350.1.13.10 4.2.7.2.686 [id number] [id number] [facility] 2022-03-06 00:00:00 2022-03-06 00:00:00 Telephone Jefferson Witt [facility]ELA [facility] MEDICAL OFFICE BUILDING 1.2840.114 350.1.13.10 4.2.7.2.686 [id number] 044 [id number] [facility] 2022-03-01 00:00:00 2022-03-01 00:00:00 Refill [facility] [place]?[facility] MEDICAL OFFICE BUILDING 1.2840.114 350.1.13.10 4.2.7.2.686 [id number] [facility] 2022-02-27 00:00:00 2022-02-27 00:00:00 Refill DelfinoMarylou [facility] [place] MEDICAL OFFICE BUILDING 1.2840.114 350.1.13.10 4.2.7.2.686 [id number] [facility] 2022-02-26 00:00:00 2022-02-26 00:00:00 Telephone Antoine, Giovany Taylor [facility] [place]?[facility] MEDICAL OFFICE BUILDING 1.284.114 350.1.13.10 4.2.7.2.686 [id number] [facility] 2022-02-24 00:00:00 2022-02-24 00:00:00 Telephone Jefferson Witt [facility]MARISELA [facility] MEDICAL OFFICE BUILDING 1.84.114 350.1.13.10 4.2.7.2.686 [id number] [id number] [facility] 2022-02-24 00:00:00 2022-02-24 00:00:00 [facility] MEDICAL OFFICE BUILDING 1..114 350.1.13.10 4.2.7.2.686 [id number] 044 [id number] [facility] 2022-02-21 10:45:00 2022-02-21 10:45:00 Outpatient ARMINDA COLLAZO [facility] [id number] [facility] 2022-02-11 00:00:00 2022-02-11 00:00:00 Telephone [facility] [place] MEDICAL OFFICE BUILDING 1.114 350.1.13.10 4.2.7.2.686 [id number] 044 [id number] [facility] 2022-02-10 00:00:00 2022-02-10 00:00:00 Telephone [facility]ELA [facility] MEDICAL OFFICE BUILDING 1.84.114 350.1.13.10 4.2.7.2.686 [id number] 044 [id number] [facility] 2022-02-05 09:45:00 2022-02-05 10:02:08 Outpatient R JEFFERSON WITT [facility] [id number] [facility] 2022-02-05 09:45:00 2022-02-05 10:02:08 Office [facility]ELA [facility] MEDICAL OFFICE BUILDING 1.84.114 350.1.13.10 4.2.7.2.686 [id number] 044 [id number] [facility] 2022-02-05 00:00:00 2022-02-05 00:00:00 Refill Eduar Jefferson [facility] MED[facility] OFFICE BUILDING 1..114 350.1.13.10 4.2.7.2.686 [id number] 044 [id number] [facility] 2022-02-05 00:00:00 2022-02-05 00:00:00 Refill Jefferson Witt [facility] [place]?[facility] MEDICAL OFFICE BUILDING 1..114 350.1.13.10 4.2.7.2.686 [id number] [id number] [facility] 2022-02-05 00:00:00 2022-02-05 00:00:00 Telephone Noemi Waite [facility] [place]?[facility] MEDICAL OFFICE BUILDING 1.114 350.1.13.10 4.2.7.2.686 [id number] [facility] 2022-02-05 00:00:00 2022-02-05 00:00:00 Orders Only Doctor Unassigned, Mcallister [facility] 1..114 350.1.13.10 4.2.7.2.686 [id number] [facility] 2022-01-31 00:00:00 2022-01-31 00:00:00 Refill Giovany Antoine [facility] [place]?[facility] MEDICAL OFFICE BUILDING 1.114 350.1.13.10 4.2.7.2.686 [id number] [facility] 2022-01-27 00:00:00 2022-01-27 00:00:00 Refill Nora Morrow [facility] [place]?[facility] MEDICAL OFFICE BUILDING 1.114 350.1.13.10 4.2.7.2.686 [id number] 044 [id number] [facility] 2022-01-26 00:00:00 2022-01-26 00:00:00 Doniprabhjot Giovany Antoine Claudia [facility] OFF[facility] BUILDING 1.2.840.114 350.1.13.10 4.2.7.2.686 [id number] [facility] 2022-01-24 15:30:00 2022-01-24 15:30:00 Outpatient GIOVANY GOTTI [facility] [id number] [facility] 2022-01-24 15:30:00 2022-01-24 15:30:00 Outpatient GIOVANY GOTTI [facility] [id number] [facility] 2022-01-13 00:00:00 2022-01-13 00:00:00 Telephone Jefferson Witt [facility] MEDICAL OFFICE BUILDING 1.2.840.114 350.1.13.10 4.2.7.2.686 [id number] [facility] 2022-01-10 15:30:00 2022-01-10 15:30:00 Outpatient R GIOVANY ANTOINE [facility] [id number] [facility] 2022-01-09 10:30:00 2022-01-09 10:37:24 Outpatient R NOEMI WAITE [facility] [id number] [facility] 2022-01-09 10:30:00 2022-01-09 10:37:24 Office Visit Noemi Waite [facility]ELA [facility] MEDICAL OFFICE BUILDING 1.2.840.114 350.1.13.10 4.2.7.2.686 [id number] [facility] 2022-01-09 10:30:00 2022-01-09 10:37:24 Outpatient R NOEMI WAITE [facility] [id number] [facility] 2022-01-02 10:30:00 2022-01-02 10:45:00 [facility] 1..840.114 350.1.13.10 4.2.7.2.686 [id number] [facility] 2022-01-02 10:30:00 2022-01-02 10:30:00 Outpatient R MARIANN NOEMI [facility] [id number] [facility] 2022-01-02 10:30:00 2022-01-02 10:30:00 Outpatient R MARIANN NOEMI [facility] [id number] [facility] 2021-12-31 00:00:00 2021-12-31 00:00:00 [facility] 1..840.114 350.1.13.10 4.2.7.2.686 [id number] 044 [id number] [facility] 2021-12-31 00:00:00 2021-12-31 00:00:00 [facility] 1..840.114 350.1.13.10 4.2.7.2.686 [id number] [facility] 2021-12-26 14:00:00 2021-12-26 14:37:45 Outpatient R NOEMI WAITE [facility] [id number] [facility] 2021-12-26 14:00:00 2021-12-26 14:37:45 Office [facility] 1..840.114 350.1.13.10 4.2.7.2.686 [id number] [facility] 2021-12-26 00:00:00 2021-12-26 00:00:00 Telephone Giovany Antoine [facility] [place]?MARISELA [facility] MEDICAL OFFICE BUILDING 1..840.114 350.1.13.10 4.2.7.2.686 [id number] [facility] 2021-12-26 00:00:00 2021-12-26 00:00:00 Telephone Giovany Antoine [facility] [place]?MARISELA [facility] MEDICAL OFFICE BUILDING 1..840.114 350.1.13.10 4.2.7.2.686 [id number] [facility] 2021-12-25 00:00:00 2021-12-25 00:00:00 Refill Eduar Jefferson [facility] MEDICAL OFFICE BUILDING 1..840.114 350.1.13.10 4.2.7.2.686 [id number] [id number] [facility] 2021-12-19 10:15:00 2021-12-19 11:07:04 Outpatient R DILAN LOVE [facility] [id number] [facility] 2021-12-19 10:15:00 2021-12-19 11:07:04 Office Visit Dilan Love [facility] [place]?MARISELA [facility] MEDICAL OFFICE BUILDING 1.2.840.114 350.1.13.10 4.2.7.2.686 [id number] [facility] 2021-12-17 00:00:00 2021-12-17 00:00:00 Telephone Eduar Jefferson [facility] [place]?MARISELA [facility] MEDICAL OFFICE BUILDING 1.2.840.114 350.1.13.10 4.2.7.2.686 [id number] [facility] 2021-12-12 10:15:00 2021-12-12 11:10:34 Outpatient R NOEMI WAITE [facility] [id number] [facility] 2021-12-12 10:15:00 2021-12-12 11:10:34 [facility] MED[facility] OFF[facility] BUILD[facility] 1.2.840.114 350.1.13.10 4.2.7.2.686 [id number] [facility] 2021-12-12 10:15:00 2021-12-12 11:10:34 Outpatient NOEMI ZAIDI [facility] [id number] [facility] 2021-12-12 10:15:00 2021-12-12 10:15:00 Outpatient NOEMI ZAIDI [facility] [id number] [facility] 2021-12-11 00:00:00 2021-12-11 00:00:00 Telephone [facility] MEDICAL OFFICE BUILDING 1.2.840.114 350.1.13.10 4.2.7.2.686 [id number] [id number] [facility] 2021-12-10 10:00:00 2021-12-10 10:15:00 Citrix Lead Visit Lab, Fritz Witt [facility] MEDICAL OFFICE BUILDING 1.2.840.114 350.1.13.10 4.2.7.2.686 [id number] [facility] 2021-12-10 10:00:00 2021-12-10 10:00:00 Outpatient JEFFERSON PEREZ [facility] [id number] [facility] 2021-12-10 09:45:00 2021-12-10 10:00:00 Office Visit Eduar Jefferson [facility] [place] MEDICAL OFFICE BUILDING 1.2.840.114 350.1.13.10 4.2.7.2.686 [id number] [facility] 2021-12-10 09:45:00 2021-12-10 09:45:00 Outpatient Hany EDUAR JEFFERSON [facility] [id number] [facility] 2021-12-05 14:15:00 2021-12-05 14:30:00 Office Visit Noemi Waite [facility] [place]?[facility] OFF[facility] BUILDING 1.20.114 350.1.13.10 4.2.7.2.686 [id number] [facility] 2021-12-05 14:15:00 2021-12-05 14:15:00 Outpatient R NOEMI WAITE [facility] [id number] [facility] 2021-12-05 14:15:00 2021-12-05 14:15:00 Outpatient R NOEMI WAITE [facility] [id number] [facility] 2021-12-05 00:00:00 2021-12-05 00:00:00 Orders Only Doctor Unassigned, Mcallister [facility] 1.20.114 350.1.13.10 4.2.7.2.686 [id number] [facility] 2021-12-02 00:00:00 2021-12-02 00:00:00 Refill [facility] [place]?[facility] MEDICAL OFFICE BUILDING 1.20.114 350.1.13.10 4.2.7.2.686 [id number] [id number] [facility] 2021-12-01 00:00:00 2021-12-01 00:00:00 Refill Marylou Gamino [facility] MEDICAL OFFICE BUILDING 1.20.114 350.1.13.10 4.2.7.2.686 [id number] [facility] 2021-12-01 00:00:00 2021-12-01 00:00:00 Refill Eduar Jefferson [facility] MEDICAL OFFICE BUILDING 1.2840.114 350.1.13.10 4.2.7.2.686 [id number] [id number] [facility] 2021-11-27 00:00:00 2021-11-27 00:00:00 Orders Only Doctor Unassigned, Mcallister [facility] 1.2.840.114 350.1.13.10 4.2.7.2.686 [id number] [facility] 2021-11-26 00:00:00 2021-11-26 00:00:00 [facility]A [facility] MEDICAL OFFICE BUILDING 1.2.840.114 350.1.13.10 4.2.7.2.686 [id number] [facility] 2021-11-25 00:00:00 2021-11-25 00:00:00 Telephone [facility] [place]?MARISELA [facility] MEDICAL OFFICE BUILDING 1.2.840.114 350.1.13.10 4.2.7.2.686 [id number] 044 [id number] [facility] 2021-11-25 00:00:00 2021-11-25 00:00:00 Telephone Eduar Jefferson [facility] MEDICAL OFFICE BUILDING 1.2.840.114 350.1.13.10 4.2.7.2.686 [id number] [facility] 2021-11-20 00:00:00 2021-11-20 00:00:00 Telephone Noemi Waite [facility] [place]?MARISELA [facility] MEDICAL OFFICE BUILDING 1.2.840.114 350.1.13.10 4.2.7.2.686 [id number] [facility] 2021-11-19 13:30:00 2021-11-19 13:45:00 Office Visit Mariann [facility] MA[place]ICIO?MARISELA [facility] MEDICAL OFFICE BUILDING 1.2.840.114 350.1.13.10 4.2.7.2.686 [id number] [facility] 2021-11-19 13:30:00 2021-11-19 13:30:00 Outpatient R NOEMI WAITE [facility] [id number] [facility] 2021-11-13 09:45:00 2021-11-13 09:54:37 Office Visit [facility] [place]?[facility] BUILDING 1.840.114 350.1.13.10 4.2.7.2.686 [id number] [facility] 2021-11-13 09:45:00 2021-11-13 09:54:37 Outpatient R JEFFERSON WITT [facility] [id number] [facility] 2021-11-13 09:45:00 2021-11-13 09:45:00 Outpatient R JEFFERSON WITT [facility] [id number] [facility] 2021-11-13 09:45:00 2021-11-13 09:45:00 Outpatient R JEFFERSON WITT [facility] [id number] [facility] 2021-11-12 00:00:00 2021-11-12 00:00:00 Refill [facility] OFF[facility] BUILDING ONE 1.84.114 350.1.13.10 4.2.7.2.686 [id number] [id number] [facility] 2021-11-11 00:00:00 2021-11-11 00:00:00 Refill Marylou Gamino [facility] MEDICAL OFFICE BUILDING 1.84.114 350.1.13.10 4.2.7.2.686 [id number] [facility] 2021-11-04 00:00:00 2021-11-04 00:00:00 Refill [facility] [place]?[facility] BUILD[facility] 1.84.114 350.1.13.10 4.2.7.2.686 [id number] [id number] [facility] 2021-11-01 00:00:00 2021-11-01 00:00:00 Refill Marylou Gamino [facility] [place]?MARISELA [facility] MEDICAL OFFICE BUILDING 1.2.840.114 350.1.13.10 4.2.7.2.686 [id number] [facility] 2021-10-31 00:00:00 2021-10-31 00:00:00 Refill [facility] MED[facility] OFFICE BUILDING 1..840.114 350.1.13.10 4.2.7.2.686 [id number] [id number] [facility] 2021-10-21 00:00:00 2021-10-21 00:00:00 Telephone Jefferson Witt [facility] [place] MEDICAL OFFICE BUILDING 1..840.114 350.1.13.10 4.2.7.2.686 [id number] [facility] 2021-10-10 00:00:00 2021-10-10 00:00:00 Telephone Mariann Noemi [facility] [place] MEDICAL OFFICE BUILDING 1..840.114 350.1.13.10 4.2.7.2.686 [id number] [facility] 2021-10-07 12:15:00 2021-10-07 12:15:00 Outpatient R JEFFERSON WITT [facility] [id number] [facility] 2021-10-02 14:45:00 2021-10-02 15:30:28 Outpatient R NOEMI WATIE [facility] [id number] [facility] 2021-10-02 14:45:00 2021-10-02 15:15:00 Office Visit Mariann Noemi [facility] [place]?[facility] MEDICAL OFFICE BUILDING 1.840.114 350.1.13.10 4.2.7.2.686 [id number] [facility] 2021-10-02 14:45:00 2021-10-02 14:45:00 Outpatient R NOEMI WAITE [facility] [id number] [facility] 2021-10-02 00:00:00 2021-10-02 00:00:00 Refill [facility] OFF[facility] BUILD[facility] ONE 1..840.114 350.1.13.10 4.2.7.2.686 [id number] [facility] 2021-09-20 10:30:00 2021-09-20 10:45:00 Citrix Lead Visit Lab, Fritz Witt [facility] [place]?[facility] 1..840.114 350.1.13.10 4.2.7.2.686 [id number] [facility] 2021-09-20 10:30:00 2021-09-20 10:30:00 [facility] [id number] 2021-09-19 10:30:00 2021-09-19 10:30:00 Outpatient R [facility] [id number] [facility] 2021-09-17 00:00:00 2021-09-17 00:00:00 Telephone Jefferson Witt [facility] MEDICAL OFFICE BUILDING 1.840.114 350.1.13.10 4.2.7.2.686 [id number] [facility] 2021-09-17 00:00:00 2021-09-17 00:00:00 Telephone Eduar [facility] MED[facility] OFF[facility] BUILDING 1..840.114 350.1.13.10 4.2.7.2.686 [id number] [facility] 2021-09-13 10:30:00 2021-09-13 10:30:00 Outpatient R WITT, JEFFERSON [facility] [id number] [facility] 2021-09-12 12:00:00 2021-09-12 12:00:00 Outpatient JEFFERSON PEREZ [facility] [id number] [facility] 2021-09-12 10:15:00 2021-09-12 10:30:00 Office Visit Jefferson Witt [facility] 1.2.840.114 350.1.13.10 4.2.7.2.686 [id number] [facility] 2021-09-12 10:15:00 2021-09-12 10:15:00 Outpatient JEFFERSON PEREZ [facility] [id number] [facility] 2021-09-12 10:15:00 2021-09-12 10:15:00 Outpatient JEFFERSON PEREZ [facility] [id number] [facility] 2021-09-12 00:00:00 2021-09-12 00:00:00 Telephone Giovany Antoine [facility] MEDICAL OFFICE BUILDING 1.2.840.114 350.1.13.10 4.2.7.2.686 [id number] [facility] 2021-09-10 10:30:00 2021-09-10 11:01:21 Outpatient R MARYLOU GAMINO [facility] [id number] [facility] 2021-09-10 10:30:00 2021-09-10 11:01:21 Office Visit Zahraa [facility]Formerly [facility]ELA [facility] MEDICAL OFFICE BUILDING 1.2.840.114 350.1.13.10 4.2.7.2.686 [id number] [facility] 2021-09-10 10:30:00 2021-09-10 11:01:21 Outpatient R MARYLOU GAMINO [facility] [id number] [facility] 2021-09-10 10:30:00 2021-09-10 10:30:00 [facility] [id number] [facility] 2021-09-10 10:30:00 2021-09-10 10:30:00 [facility] [id number] [facility] 2021-09-10 10:30:00 2021-09-10 10:30:00 [facility] [id number] [facility] 2021-09-10 10:30:00 2021-09-10 10:30:00 [facility] [id number] [facility] 2021-09-04 00:00:00 2021-09-04 00:00:00 Refill Eduar [facility] MEDICAL OFFICE BUILDING 1.2.840.114 350.1.13.10 4.2.7.2.686 [id number] [facility] 2021-09-03 14:14:00 2021-09-03 16:13:00 Emergency X [facility] E[facility] [id number] [facility] 2021-09-03 14:14:00 2021-09-03 16:13:00 Emergency Praveen [facility] 1.2.840.114 350.1.13.10 4.2.7.2.686 [id number] [facility] 2021-09-03 00:00:00 2021-09-03 00:00:00 [facility] OFF[facility] 1.2.840.114 350.1.13.10 4.2.7.2.686 [id number] [facility] 2021-09-02 00:00:00 2021-09-02 00:00:00 Viktoriya Witt [facility] OFF[facility] ONE 1.114 350.1.13.10 4.2.7.2.686 [id number] [facility] 2021-09-02 00:00:00 2021-09-02 00:00:00 Refill Eduar [facility] MAURICIO?[facility] [place] [facility] 1.114 350.1.13.10 4.2.7.2.686 [id number] [facility] 2021-08-31 00:00:00 2021-08-31 00:00:00 Patient Secure Msg Doctor Unassigned, [facility] 1.114 350.1.13.10 4.2.7.2.686 [id number] [facility] 2021-08-29 11:45:00 2021-08-29 12:00:00 Office Visit Eduar [facility] [place] [facility] 1.114 350.1.13.10 4.2.7.2.686 [id number] [facility] 2021-08-29 11:45:00 2021-08-29 11:45:00 Outpatient R JEFFERSON WITT [facility] [id number] [facility] 2021-08-28 00:00:00 2021-08-28 00:00:00 Nora Badillo [facility] OFF[facility] ONE 1.114 350.1.13.10 4.2.7.2.686 [id number] [facility] 2021-08-15 10:45:00 2021-08-15 11:00:00 [facility] Lead Visit Lab, Ang - Erik Witt [facility] MAURICIO?[facility] [place] [facility] 1.114 350.1.13.10 4.2.7.2.686 [id number] [facility] 2021-08-15 10:45:00 2021-08-15 10:45:00 Outpatient JEFFERSON [facility] [id number] [facility] 2021-08-15 10:00:00 2021-08-15 10:15:00 [facility] OFF[facility] BUILD[facility] 1..840.114 350.1.13.10 4.2.7.2.686 [id number] [facility] 2021-08-15 10:00:00 2021-08-15 10:00:00 Outpatient JEFFERSON PEREZ [facility] [id number] [facility] 2021-08-15 10:00:00 2021-08-15 10:00:00 Outpatient [facility] [id number] [facility] 2021-08-15 10:00:00 2021-08-15 10:00:00 Outpatient JEFFERSON PEREZ [facility] [id number] [facility] 2021-08-15 00:00:00 2021-08-15 00:00:00 Orders Only Doctor Unassigned, [facility] 1..840.114 350.1.13.10 4.2.7.2.686 [id number] [facility] [facility] 2021-08-12 10:00:00 2021-08-12 10:00:00 Outpatient [facility] [id number] [facility] 2021-08-12 10:00:00 2021-08-12 10:00:00 Outpatient Hany WITT [facility] [id number] [facility] 2021-08-07 00:00:00 2021-08-07 00:00:00 Telephone Brian Ventura [facility] BUILDING 1..840.114 350.1.13.10 4.2.7.2.686 [id number] [id number] [facility] 2021-08-06 00:00:00 2021-08-06 00:00:00 Jefferson Katz [facility] OFFICE BUILDING ONE 1.2.840.114 350.1.13.10 4.2.7.2.686 [id number] 044 [id number] [facility] 2021-08-06 00:00:00 2021-08-06 00:00:00 Telephone Brian Ventura [facility] BUILDING 1.2.840.114 350.1.13.10 4.2.7.2.686 [id number] 059 [id number] [facility] 2021-08-05 09:54:13 2021-08-05 23:59:00 Outpatient R [facility]AN [facility] [id number] [facility] 2021-08-05 09:54:13 2021-08-05 23:59:00 Hospital Encounter Brian Ventura [facility] BUILDING 1.2.840.114 350.1.13.10 4.2.7.2.686 [id number] [facility] 2021-08-02 15:30:00 2021-08-02 15:45:00 Laboratory Only Only, Adc Test Mike [facility] 1.2.840.114 350.1.13.10 4.2.7.2.686 [id number] [facility] 2021-08-02 15:30:00 2021-08-02 15:30:00 Outpatient Hany [facility] [id number] [facility] 2021-07-22 00:00:00 2021-07-22 00:00:00 Viktoriya Witt [facility] MAURICIO[facility] 1.2.840.114 350.1.13.10 4.2.7.2.686 [id number] 044 [id number] [facility] 2021-07-16 00:00:00 2021-07-16 00:00:00 Telephone [facility] 1.2.840.114 350.1.13.10 4.2.7.2.686 [id number] 044 [id number] [facility] 2021-07-10 09:30:00 2021-07-10 09:30:00 Outpatient R [facility]ERSON [facility] [id number] [facility] 2021-07-09 00:00:00 2021-07-09 00:00:00 Telephone Jefferson Witt [facility]A [facility] MEDICAL OFFICE BUILDING 1.2.840.114 350.1.13.10 4.2.7.2.686 [id number] [id number] [facility] 2021-07-08 00:00:00 2021-07-08 00:00:00 Telephone Jefferson Witt [facility]MAR[facility]ELA [facility] MEDICAL OFFICE BUILDING 1.2.840.114 350.1.13.10 4.2.7.2.686 [id number] 044 [id number] [facility] 2021-07-03 15:09:59 2021-07-03 15:24:59 Office Visit Jefferson Witt [facility] 1.2.840.114 350.1.13.10 4.2.7.2.686 [id number] 044 [id number] [facility] 2021-07-03 15:15:00 2021-07-03 15:15:00 Outpatient R [facility]ERSON [facility] [id number] [facility] 2021-07-03 00:00:00 2021-07-03 00:00:00 Jefferson Katz [facility] OFFICE BUILDING ONE 1.84.114 350.1.13.10 4.2.7.2.686 [id number] 044 [id number] [facility] 2021-07-01 00:00:00 2021-07-01 00:00:00 Telephone Eduar [facility] MAURICIO?[facility] 1.2840.114 350.1.13.10 4.2.7.2.686 [id number] 044 [id number] [facility] 2021-06-26 00:00:00 2021-06-26 00:00:00 Jefferson Katz [facility] MAURICIO?MARISELA [facility] MEDICAL OFFICE BUILDING 1..114 350.1.13.10 4.2.7.2.686 [id number] 044 [id number] [facility] 2021-06-26 00:00:00 2021-06-26 00:00:00 Telephone Eduar [facility] MAURICIO?MARISELA [facility] MEDICAL OFFICE BUILDING 1..114 350.1.13.10 4.2.7.2.686 [id number] 044 [id number] [facility] 2021-06-24 09:00:00 2021-06-24 09:00:00 Outpatient R [facility]FFERSON WITT [facility] [id number] [facility] 2021-06-24 00:00:00 2021-06-24 00:00:00 Telephone Eduar [facility] MAURICIO?MARISELA [facility] MEDICAL OFFICE BUILDING 1.84.114 350.1.13.10 4.2.7.2.686 [id number] 044 [id number] [facility] 2021-06-20 00:00:00 2021-06-20 00:00:00 Telephone Eduar [facility] MAURICIO?[facility] BUILDING 1.0.114 350.1.13.10 4.2.7.2.686 [id number] 044 [id number] [facility] 2021-06-19 12:00:00 2021-06-19 12:00:00 Outpatient R [facility]ERSON [facility] [id number] [facility] 2021-06-19 10:09:29 2021-06-19 10:24:29 Citrix Lead Visit Lab, Ang - Erik Eduar [facility]?MARISELA [facility] OFFICE BUILDING 1.84.114 350.1.13.10 4.2.7.2.686 [id number] [facility] 2021-06-19 09:41:59 2021-06-19 10:11:59 Office Visit Eduar [facility] 1.84.114 350.1.13.10 4.2.7.2.686 [id number] 044 [id number] [facility] 2021-06-19 10:00:00 2021-06-19 10:00:00 Outpatient R [facility]ERSON [facility] [id number] [facility] 2021-06-18 00:00:00 2021-06-18 00:00:00 Telephone [facility] 1.84.114 350.1.13.10 4.2.7.2.686 [id number] [id number] [facility] 2021-06-11 14:40:00 2021-06-11 14:40:00 Outpatient R ROBBIE [facility]ON[facility] [id number] [facility] 2021-06-10 00:00:00 2021-06-10 00:00:00 Nora Badillo [facility] OFFICE BUILDING ONE 1.84.114 350.1.13.10 4.2.7.2.686 [id number] [id number] [facility] 2021-06-10 00:00:00 2021-06-10 00:00:00 Telephone Eduar [facility] BUILDING 1..840.114 350.1.13.10 4.2.7.2.686 [id number] 044 [id number] [facility] 2021-06-09 00:00:00 2021-06-09 00:00:00 Refill Eduar [facility] OFFICE BUILDING ONE 1.2.840.114 350.1.13.10 4.2.7.2.686 [id number] 044 [id number] [facility] 2021-06-04 14:44:49 2021-06-04 14:45:00 Imm/Inj Visit Nurse, Brenda Hernandez Immunizatio Severo Peterson [facility] BUILDING 1..840.114 350.1.13.10 4.2.7.2.686 [id number] [facility] 2021-06-04 14:00:00 2021-06-04 14:35:39 Outpatient R [facility]AN [facility] [id number] [facility] 2021-06-04 13:38:39 2021-06-04 14:35:39 Office Visit Brian Ventura [facility] BUILDING 1..840.114 350.1.13.10 4.2.7.2.686 [id number] [facility] 2021-06-04 14:30:00 2021-06-04 14:30:00 Outpatient SEVERO [facility] [id number] [facility] 2021-06-04 10:40:00 2021-06-04 10:40:00 Outpatient SEVERO [facility] [id number] [facility] 2021-06-04 00:00:00 2021-06-04 00:00:00 Transition of Care Elizabeth Mckeon 1.84.114 350.1.13.10 4.2.7.2.686 [id number] [facility] 2021-05-31 13:04:00 2021-06-01 12:55:00 Outpatient [facility] [id number] [facility] 2021-05-31 13:04:00 2021-06-01 12:55:00 Hospital Encounter Jesus Spain Cheryle [facility] 1..114 350.1.13.10 4.2.7.2.686 [id number] [facility] 2021-05-30 13:30:00 2021-05-30 13:30:00 Outpatient SEVERO [facility] [id number] [facility] 2021-05-30 00:00:00 2021-05-30 00:00:00 Refill Witt [facility] OFFICE BUILDING ONE 1.84.114 350.1.13.10 4.2.7.2.686 [id number] 044 [id number] [facility] 2021-05-29 00:00:00 2021-05-29 00:00:00 Telephone Eduar [facility] Mauricio?Eriulices [facility] 1..114 350.1.13.10 4.2.7.2.686 [id number] 044 [id number] [facility] 2021-05-28 00:00:00 2021-05-28 00:00:00 Telephone Eduar [facility] MAURICIO?[facility] 1.284.114 350.1.13.10 4.2.7.2.686 [id number] 044 [id number] [facility] 2021-05-27 00:00:00 2021-05-27 00:00:00 Telephone [facility] Mauricio?Marisela simpson [facility] Office Building 1.284.114 350.1.13.10 4.2.7.2.686 [id number] 044 [id number] [facility] 2021-05-27 00:00:00 2021-05-27 00:00:00 [facility]ela [facility] Building 1.2840.114 350.1.13.10 4.2.7.2.686 [id number] [facility] 2021-05-22 00:00:00 2021-05-22 00:00:00 Refill Eduar [facility] Office Building One 1.84.114 350.1.13.10 4.2.7.2.686 [id number] 044 [id number] [facility] 2021-05-12 00:00:00 2021-05-12 00:00:00 Refill Eduar [facility] Office Building One 1.84.114 350.1.13.10 4.2.7.2.686 [id number] 044 [id number] [facility] 2021-05-10 13:30:00 2021-05-10 14:11:31 Outpatient R MARYLOU GAMINO [facility] [id number] [facility] 2021-05-10 13:28:18 2021-05-10 14:11:31 Office Visit Delfino [facility] MAURICIO?[facility] BUILDING 1.284.114 350.1.13.10 4.2.7.2.686 [id number] [facility] 2021-05-09 00:00:00 2021-05-09 00:00:00 Telephone Giovany Antoine [facility] nal Building 1.84.114 350.1.13.10 4.2.7.2.686 [id number] [facility] 2021-05-06 00:00:00 2021-05-06 00:00:00 Orders Only Doctor Unassigned, Mcallister [facility] 1.2840.114 350.1.13.10 4.2.7.2.686 [id number] [id number] [facility] 2021-05-01 00:00:00 2021-05-01 00:00:00 Telephone Eduar [facility] Building 1..840.114 350.1.13.10 4.2.7.2.686 [id number] [id number] [facility] 2021-04-25 08:59:52 2021-04-25 09:29:52 Office Visit Witt [facility] Building 1.840.114 350.1.13.10 4.2.7.2.686 [id number] [id number] [facility] 2021-04-25 09:00:00 2021-04-25 09:00:00 Outpatient R JEFFERSON WITT [facility] [id number] [facility] 2021-04-24 09:29:51 2021-04-24 09:50:31 Urgent Care Ana Riddle [facility] Building 1..840.114 350.1.13.10 4.2.7.2.686 [id number] [facility] 2021-04-24 09:40:00 2021-04-24 09:40:00 Outpatient Hany [facility] [id number] [facility] 2021-04-18 00:00:00 2021-04-18 00:00:00 Orders Only Doctor Unassigned, Mcallister [facility] 1.2840.114 350.1.13.10 4.2.7.2.686 [id number] [id number] [facility] 2021-04-15 00:00:00 2021-04-15 00:00:00 Telephone Marylou Gamino [facility] Building 1.2.840.114 350.1.13.10 4.2.7.2.686 [id number] [facility] 2021-04-11 09:38:42 2021-04-11 09:57:48 Office Visit Bassam [facility] Mauricio?Marisela simpson Medical Office Building 1.2.840.114 350.1.13.10 4.2.7.2.686 [id number] [facility] 2021-04-11 09:45:00 2021-04-11 09:45:00 Outpatient JEFFERSON PEREZ [facility] [id number] [facility] 2021-04-11 08:12:22 2021-04-11 08:27:22 Citrix Lead Visit 2, [facility] Eduar Jefferson [facility] Building 1.2.840.114 350.1.13.10 4.2.7.2.686 [id number] [facility] 2021-04-11 08:12:22 2021-04-11 08:27:22 Citrix Lead Visit 2, [facility] Eduar [facility] Building 1.2.840.114 350.1.13.10 4.2.7.2.686 [id number] [facility] 2021-04-10 12:00:00 2021-04-10 12:00:00 Outpatient JEFFERSON PEREZ [facility] [id number] [facility] 2021-03-31 00:00:00 2021-03-31 00:00:00 Refill Witt, [facility] Office Building One 1.2.840.114 350.1.13.10 4.2.7.2.686 [id number] 044 [id number] [facility] 2021-03-31 00:00:00 2021-03-31 00:00:00 Refill Bassam WittPending sale to [facility] Office Building One 1.2840.114 350.1.13.10 4.2.7.2.686 [id number] 044 [id number] [facility] 2021-03-12 00:00:00 2021-03-12 00:00:00 Refprabhjot Witt [facility] Office Building One 1.2840.114 350.1.13.10 4.2.7.2.686 [id number] 044 [id number] [facility] 2021-03-04 00:00:00 2021-03-04 00:00:00 Refill Eduar [facility] Office Building One 1.2840.114 350.1.13.10 4.2.7.2.686 [id number] 044 [id number] [facility] 2021-03-01 00:00:00 2021-03-01 00:00:00 Refill Eduar [facility] Office Building One 1.2840.114 350.1.13.10 4.2.7.2.686 [id number] 044 [id number] [facility] 2021-02-26 00:00:00 2021-02-26 00:00:00 Telephone Jefferson Witt [facility] Office Building One 1.2.840.114 350.1.13.10 4.2.7.2.686 [id number] 044 [id number] [facility] 2021-02-22 00:00:00 2021-02-22 00:00:00 Telephone Eduar [facility] Office Building One 1..114 350.1.13.10 4.2.7.2.686 [id number] 044 [id number] [facility] 2021-02-19 00:00:00 2021-02-19 00:00:00 Refill Bassam WittPending sale to [facility] Office Building One 1.114 350.1.13.10 4.2.7.2.686 [id number] 044 [id number] [facility] 2021-02-18 11:40:45 2021-02-18 23:59:00 Hospital Encounter [facility] 1..114 350.1.13.10 4.2.7.2.686 [id number] [facility] 2021-02-18 00:00:00 2021-02-18 00:00:00 Outpatient JOSSE RUIZ [facility] [id number] [facility] 2021-02-18 00:00:00 2021-02-18 00:00:00 Orders Only Doctor Unassigned, [facility]allister [facility] 1..114 350.1.13.10 4.2.7.2.686 [id number] [id number] [facility] 2021-02-18 00:00:00 2021-02-18 00:00:00 Telephone Jefferson Witt [facility] Office Building One 1.114 350.1.13.10 4.2.7.2.686 [id number] 044 [id number] [facility] 2021-02-08 08:30:00 2021-02-08 08:30:00 Outpatient GIOVANY GOTTI [facility] [id number] [facility] 2021-02-04 12:13:45 2021-02-04 12:31:27 Urgent Care Provider, [facility] .114 350.1.13.10 4.2.7.2.686 [id number] 044 [id number] [facility] 2021-02-04 12:20:00 2021-02-04 12:20:00 Outpatient JOSSE RUIZ [facility] [id number] [facility] 2021-02-04 00:00:00 2021-02-04 00:00:00 Viktoriya Witt Jefferson [facility] Office Building One ..114 350.1.13.10 4.2.7.2.686 [id number] 044 [id number] [facility] 2021-02-01 13:13:42 2021-02-01 15:01:09 Office Visit Marylou Gamino Kevin [facility] Building 1.114 350.1.13.10 4.2.7.2.686 [id number] [facility] 2021-02-01 13:30:00 2021-02-01 13:30:00 Outpatient GIOVANY GOTTI [facility] [id number] [facility] 2021-02-01 13:30:00 2021-02-01 13:30:00 Outpatient GIOVANY GOTTI [facility] [id number] [facility] 2021-01-24 00:00:00 2021-01-24 00:00:00 Viktoriya Witt Jefferson [facility] Office Building One .114 350.1.13.10 4.2.7.2.686 [id number] 044 [id number] [facility] 2021-01-16 00:00:00 2021-01-16 00:00:00 Viktoriya Witt [facility] Office Building One .114 350.1.13.10 4.2.7.2.686 [id number] 044 [id number] [facility] 2021-01-10 00:00:00 2021-01-10 00:00:00 Telephone AlbertoRomi [facility] Office Building One 1.84.114 350.1.13.10 4.2.7.2.686 [id number] 044 [id number] [facility] 2021-01-09 15:52:45 2021-01-09 16:12:45 Urgent Care Romi Dominguez [facility] Office Building One ..114 350.1.13.10 4.2.7.2.686 [id number] [facility] 2021-01-09 16:00:00 2021-01-09 16:00:00 Outpatient MEHREEN [facility]IA [facility] [id number] [facility] 2021-01-07 00:00:00 2021-01-07 00:00:00 Refill Eduar [facility] Office Building One .114 350.1.13.10 4.2.7.2.686 [id number] 044 [id number] [facility] 2021-01-07 00:00:00 2021-01-07 00:00:00 Refill Eduar [facility] Office Building One ..114 350.1.13.10 4.2.7.2.686 [id number] 044 [id number] [facility] 2021-01-07 00:00:00 2021-01-07 00:00:00 Telephone Eduar [facility] Office Building One 1.84.114 350.1.13.10 4.2.7.2.686 [id number] 044 [id number] [facility] 2021-01-07 00:00:00 2021-01-07 00:00:00 Telephone Jefferson Witt [facility] Office Building One 1.0.114 350.1.13.10 4.2.7.2.686 [id number] 044 [id number] [facility] 2021-01-03 12:15:00 2021-01-03 12:15:00 Outpatient R JEFFERSON WITT [facility] [id number] [facility] 2021-01-03 11:45:12 2021-01-03 12:00:12 Office Visit Bassam WittPending sale to [facility] Office Building One 1.0.114 350.1.13.10 4.2.7.2.686 [id number] 044 [id number] [facility] 2021-01-02 00:00:00 2021-01-02 00:00:00 Refill Eduar [facility] Office Building One 1.840.114 350.1.13.10 4.2.7.2.686 [id number] 044 [id number] [facility] 2021-01-02 00:00:00 2021-01-02 00:00:00 Telephone Eduar [facility] Office Building One 1.840.114 350.1.13.10 4.2.7.2.686 [id number] 044 [id number] [facility] 2021-01-01 00:00:00 2021-01-01 00:00:00 Refill Eduar [facility] Office Building One 1.2840.114 350.1.13.10 4.2.7.2.686 [id number] 044 [id number] [facility] 2021-01-01 00:00:00 2021-01-01 00:00:00 Orders Only Doctor Unassigned, Mcallister [facility] 1.20.114 350.1.13.10 4.2.7.2.686 [id number] [facility] 2020-12-24 00:00:00 2020-12-24 00:00:00 Nurse Triage Paras Fitzgeraldulices Black [facility] 1.2840.114 350.1.13.10 4.2.7.2.686 [id number] [facility] 2020-12-07 00:00:00 2020-12-07 00:00:00 Refill Eduar [facility] Office Building One 1.840.114 350.1.13.10 4.2.7.2.686 [id number] [facility] 2020-12-05 00:00:00 2020-12-05 00:00:00 Juan Witt [facility] Office Building One 1.2840.114 350.1.13.10 4.2.7.2.686 [id number] 044 [id number] [facility] 2020-12-03 00:00:00 2020-12-03 00:00:00 Refill Eduar [facility] Office Building One 1.2840.114 350.1.13.10 4.2.7.2.686 [id number] 044 [id number] [facility] 2020-12-03 00:00:00 2020-12-03 00:00:00 Refill Eduar [facility] Office Building One 1.840.114 350.1.13.10 4.2.7.2.686 [id number] [id number] [facility] 2020-11-27 09:21:28 2020-11-27 23:59:00 Outpatient R JEFFERSON WITT [facility] [id number] [facility] 2020-11-27 09:21:28 2020-11-27 23:59:00 Hospital Encounter [facility] 1.2840.114 350.1.13.10 4.2.7.2.686 [id number] [facility] 2020-11-27 00:00:00 2020-11-27 00:00:00 Outpatient JEFFERSON PEREZ [facility] [id number] [facility] 2020-11-27 00:00:00 2020-11-27 00:00:00 Orders Only Doctor Unassigned, Mcallister [facility] 1.2840.114 350.1.13.10 4.2.7.2.686 [id number] [id number] [facility] 2020-11-21 00:00:00 2020-11-21 00:00:00 Refill Eduar [facility] Office Building One 1.2840.114 350.1.13.10 4.2.7.2.686 [id number] 044 [id number] [facility] 2020-11-14 00:00:00 2020-11-14 00:00:00 Telephone Bassam WittPending sale to [facility] Office Building One 1.20.114 350.1.13.10 4.2.7.2.686 [id number] [id number] [facility] 2020-11-13 13:17:58 2020-11-13 23:59:00 Outpatient JEFFERSON PEREZ [facility] [id number] [facility] 2020-11-13 13:17:58 2020-11-13 23:59:00 Hospital Encounter [facility] 1.2840.114 350.1.13.10 4.2.7.2.686 [id number] [facility] 2020-11-13 13:17:10 2020-11-13 23:59:00 Hospital Encounter [facility] 1.2.840.114 350.1.13.10 4.2.7.2.686 [id number] [facility] 2020-11-13 00:00:00 2020-11-13 00:00:00 Outpatient Hany JEFFERSON WITT [facility] [id number] [facility] 2020-11-13 00:00:00 2020-11-13 00:00:00 Orders Only Doctor Unassigned, Mcallister [facility] 1.0.114 350.1.13.10 4.2.7.2.686 [id number] [facility] 2020-11-06 00:00:00 2020-11-06 00:00[facility] 1..114 350.1.13.10 4.2.7.2.686 [id number] [id number] [facility] 2020-10-24 13:10:01 2020-10-24 13:25:01 Office Visit Eduar [facility] Office Building One 1..114 350.1.13.10 4.2.7.2.686 [id number] [facility] 2020-10-24 13:15:00 2020-10-24 13:15:00 Outpatient JEFFERSON PEREZ [facility] [id number] [facility] 2020-10-24 00:00:00 2020-10-24 00:00:00 Orders Only Doctor Unassigned, Mcallister [facility] 1..114 350.1.13.10 4.2.7.2.686 [id number] [id number] [facility] 2020-10-09 00:00:00 2020-10-09 00:00:[facility] ..114 350.1.13.10 4.2.7.2.686 [id number] [facility] 2020-10-09 00:00:00 2020-10-09 00:00:00 Refprabhjot Witt [facility] Office Building One 1.84114 350.1.13.10 4.2.7.2.686 [id number] [facility] 2020-10-03 12:26:09 2020-10-03 12:41:09 Office Visit Eduar [facility] Office [facility] One 1.84.114 350.1.13.10 4.2.7.2.686 [id number] [facility] 2020-10-03 12:15:00 2020-10-03 12:15:00 Outpatient R [facility] [id number] [facility] 2020-09-28 13:21:27 2020-09-28 14:42:31 Office Visit Giovany Antoine [facility] Building 1.114 350.1.13.10 4.2.7.2.686 [id number] [facility] 2020-09-28 13:30:00 2020-09-28 13:30:00 Outpatient R [facility] [id number] [facility] 2020-09-24 00:00:00 2020-09-24 00:00:00 Refill Eduar [facility] Office [facility] One .114 350.1.13.10 4.2.7.2.686 [id number] [facility] 2020-09-20 11:53:00 2020-09-20 12:28:00 Emergency X [facility] ERT [id number] [facility] 2020-09-20 11:53:00 2020-09-20 12:28:00 Emergency [facility] 1..114 350.1.13.10 4.2.7.2.686 [id number] [facility] 2020-09-19 00:00:00 2020-09-19 00:00:00 Viktoriya Witt [facility] Office Building One 1..114 350.1.13.10 4.2.7.2.686 [id number] 044 [id number] [facility] 2020-09-14 00:00:00 2020-09-14 00:00:00 Viktoriya Witt [facility] Office Building One 1..114 350.1.13.10 4.2.7.2.686 [id number] 044 [id number] [facility] 2020-09-13 00:00:00 2020-09-13 00:00:00 Viktoriya Witt [facility] Office Building One 1..114 350.1.13.10 4.2.7.2.686 [id number] 044 [id number] [facility] 2020-09-06 13:30:00 2020-09-06 13:40:37 [address] R [address] [facility] [id number] [facility] 2020-09-06 13:30:00 2020-09-06 13:30:00 Outpatient JORGE LUIS [facility] [id number] [facility] 2020-08-31 10:35:13 2020-08-31 11:37:50 Office Visit Bisi Cardoso [facility] Building 1..114 350.1.13.10 4.2.7.2.686 [id number] [facility] 2020-08-31 11:00:00 2020-08-31 11:00:00 Outpatient R BISI CARDOSO [facility] [id number] [facility] 2020-08-29 00:00:00 2020-08-29 00:00:00 [facility] 1.2.840.114 350.1.13.10 4.2.7.2.686 [id number] [facility] 2020-08-27 00:00:00 2020-08-27 00:00:00 RefBassam MoyaPending sale to [facility] Office Building One 1.2.840.114 350.1.13.10 4.2.7.2.686 [id number] 044 [id number] [facility] 2020-08-21 00:00:00 2020-08-21 00:00:00 Nurse Triage Guy Mcclellan [facility] 1.2.840.114 350.1.13.10 4.2.7.2.686 [id number] 019 [id number] [facility] 2020-08-17 07:37:00 2020-08-17 11:47:00 Hospital Encounter Bisi Cardoso [facility] 1.2.840.114 350.1.13.10 4.2.7.2.686 [id number] 071 [id number] [facility] 2020-08-16 14:00:33 2020-08-16 14:15:33 Laboratory Only Only, Adc Test Bisi Cardoso [facility] 1.2.840.114 350.1.13.10 4.2.7.2.686 [id number] [facility] 2020-08-16 14:00:00 2020-08-16 14:00:00 Outpatient R BISI CARDOSO [facility] [id number] [facility] 2020-08-16 00:00:00 2020-08-16 00:00:00 Orders Only Doctor Unassigned, Mcallister [facility] 1..114 350.1.13.10 4.2.7.2.686 [id number] [facility] 2020-08-14 00:00:00 2020-08-14 00:00:00 Telephone Giovany Antoine [facility] 1.114 350.1.13.10 4.2.7.2.686 [id number] [facility] 2020-08-09 15:20:00 2020-08-09 15:20:00 Outpatient JORGE LUIS [facility] [id number] [facility] 2020-08-09 15:20:00 2020-08-09 15:09:53 Outpatient JORGE LUIS [facility] [id number] [facility] 2020-08-08 00:00:00 2020-08-08 00:00:00 Telephone Eduar [facility] Office Building One 1..114 350.1.13.10 4.2.7.2.686 [id number] 044 [id number] [facility] 2020-08-06 00:00:00 2020-08-06 00:00:00 Refprabhjot Witt [facility] Office Building One 1..114 350.1.13.10 4.2.7.2.686 [id number] 044 [id number] [facility] 2020-08-06 00:00:00 2020-08-06 00:00:00 Telephone Jefferson Witt [facility] Building 1.84.114 350.1.13.10 4.2.7.2.686 [id number] 044 [id number] [facility] 2020-07-30 10:00:24 2020-07-30 10:15:24 Citrix Lead Visit 2, [facility] Lab Jefferson Witt [facility] Building 1.840.114 350.1.13.10 4.2.7.2.686 [id number] [facility] 2020-07-30 10:15:00 2020-07-30 10:15:00 Outpatient R JEFFERSON WITT [facility] [id number] [facility] 2020-07-30 08:18:05 2020-07-30 09:18:05 Laboratory Only Pc, Adc Echo [facility] 1.84.114 350.1.13.10 4.2.7.2.686 [id number] 059 [id number] [facility] 2020-07-30 08:17:07 2020-07-30 08:47:07 Nurse Visit Visit, [facility] Nurse Cliff [facility] Building 1.2.114 350.1.13.10 4.2.7.2.686 [id number] [id number] [facility] 2020-07-30 08:30:00 2020-07-30 08:30:00 Outpatient R [facility] [id number] [facility] 2020-07-30 00:00:00 2020-07-30 00:00:00 Refill Jefferson Witt [facility] Office Building One 1..114 350.1.13.10 4.2.7.2.686 [id number] 044 [id number] [facility] 2020-07-24 00:00:00 2020-07-24 00:00:00 Telephone Jefferson Witt [facility] Office Building One 1..114 350.1.13.10 4.2.7.2.686 [id number] 044 [id number] [facility] 2020-07-23 00:00:00 2020-07-23 00:00:00 Refill Witt Jefferson [facility] Office Building One 1.840.114 350.1.13.10 4.2.7.2.686 [id number] 044 [id number] [facility] 2020-07-20 09:45:00 2020-07-20 10:34:29 Outpatient R BISI CARDOSO [facility] [id number] [facility] 2020-07-20 09:34:36 2020-07-20 10:34:29 Office Visit Bisi Cardoso [facility] Building 1.284.114 350.1.13.10 4.2.7.2.686 [id number] [facility] 2020-07-20 09:45:00 2020-07-20 09:45:00 Outpatient R BISI CARDOSO [facility] [id number] [facility] 2020-07-20 00:00:00 2020-07-20 00:00:00 Prep For Surgery Sandy Zacarias [facility] Building 1.284.114 350.1.13.10 4.2.7.2.686 [id number] [facility] 2020-07-19 00:00:00 2020-07-19 00:00:00 Telephone PraveenaSandy [facility] Building 1.2840.114 350.1.13.10 4.2.7.2.686 [id number] [facility] 2020-07-11 14:15:00 2020-07-11 15:24:26 Outpatient R PRAVEENA SANDY [facility] [id number] [facility] 2020-07-11 14:07:33 2020-07-11 15:24:26 Office Visit Sandy Zacarias [facility] Building 1.284.114 350.1.13.10 4.2.7.2.686 [id number] [facility] 2020-07-11 12:22:19 2020-07-11 12:42:19 Citrix Lead Visit Lab, [facility] Fam Pob I Bassam WittPending sale to [facility] Office Building One 1.0.114 350.1.13.10 4.2.7.2.686 [id number] 044 [id number] [facility] 2020-07-11 11:51:24 2020-07-11 12:15:39 Office Visit Jefferson Witt [facility] Office Building One 1.0.114 350.1.13.10 4.2.7.2.686 [id number] 044 [id number] [facility] 2020-07-11 12:00:00 2020-07-11 12:00:00 [facility] [id number] 2020-07-04 00:00:00 2020-07-04 00:00:00 Telephone Jefferson Witt [facility] Office Building One 1.0.114 350.1.13.10 4.2.7.2.686 [id number] 044 [id number] [facility] 2020-06-27 13:09:36 2020-06-27 23:59:00 Hospital Encounter [facility] 1.0.114 350.1.13.10 4.2.7.2.686 [id number] [facility] 2020-06-27 11:31:39 2020-06-27 11:51:39 Citrix Lead Visit Lab, [facility] Fam Pob I BenRosette ortiz [facility] Office Building One 1..114 350.1.13.10 4.2.7.2.686 [id number] [id number] [facility] 2020-06-27 11:40:00 2020-06-27 11:43:32 Outpatient R ROSETTE CONTRERAS [facility] [id number] [facility] 2020-06-27 10:46:55 2020-06-27 11:43:03 Urgent Care Provider, [facility] Josse Leyva [facility] Office Building One 1.114 350.1.13.10 4.2.7.2.686 [id number] 044 [id number] [facility] 2020-06-27 11:00:00 2020-06-27 11:00:00 Outpatient R JOSSE LEYVA [facility] [id number] [facility] 2020-06-26 00:00:00 2020-06-26 00:00:00 Telephone Eduar [facility] Office Building One 1..114 350.1.13.10 4.2.7.2.686 [id number] 044 [id number] [facility] 2020-06-22 00:00:00 2020-06-22 00:00:00 Refill Eduar [facility] Office Building One 1..114 350.1.13.10 4.2.7.2.686 [id number] 044 [id number] [facility] 2020-06-21 00:00:00 2020-06-21 00:00:00 Telephone Eduar [facility] Office Building One 1.114 350.1.13.10 4.2.7.2.686 [id number] 044 [id number] [facility] 2020-06-19 00:00:00 2020-06-19 00:00:00 Refill Eduar [facility] Office Building One 1..114 350.1.13.10 4.2.7.2.686 [id number] 044 [id number] [facility] 2020-06-19 00:00:00 2020-06-19 00:00:00 Refill Eduar [facility] Office Building One 1.2.840.114 350.1.13.10 4.2.7.2.686 [id number] 044 [id number] [facility] 2020-06-13 00:00:00 2020-06-13 00:00:00 Refill Eduar [facility] Office Building One 1.840.114 350.1.13.10 4.2.7.2.686 [id number] 044 [id number] [facility] 2020-06-04 00:00:00 2020-06-04 00:00:00 Telephone Farshad Antoinein Claudia [facility] Building 1..114 350.1.13.10 4.2.7.2.686 [id number] [facility] 2020-06-01 00:00:00 2020-06-01 00:00:00 Telephone Bassam [facility] sale to [facility] Office Building One 1..114 350.1.13.10 4.2.7.2.686 [id number] 044 [id number] [facility] 2020-05-29 09:00:00 2020-05-29 09:00:00 Outpatient R JEFFERSON WITT [facility] [id number] [facility] 2020-05-29 06:53:27 2020-05-29 07:08:27 Telemedici ne Visit Eduar [facility] Office Building One 1..114 350.1.13.10 4.2.7.2.686 [id number] [id number] [facility] 2020-05-29 00:00:00 2020-05-29 00:00:00 Refill Giovany Antoine [facility] Building 1.840.114 350.1.13.10 4.2.7.2.686 [id number] 220 [id number] [facility] 2020-05-21 00:00:00 2020-05-21 00:00:00 Telephone Jefferson Witt [facility] Office Building One 1.2840.114 350.1.13.10 4.2.7.2.686 [id number] 044 [id number] [facility] 2020-05-16 00:00:00 2020-05-16 00:00:00 Refill Jefferson Witt [facility] Office Building One 1.2.840.114 350.1.13.10 4.2.7.2.686 [id number] 044 [id number] [facility] 2020-05-14 00:00:00 2020-05-14 00:00:00 Refill Eduar [facility] Office Building One 1.2840.114 350.1.13.10 4.2.7.2.686 [id number] 044 [id number] [facility] 2020-05-11 00:00:00 2020-05-11 00:00:00 Telephone Eduar [facility] Office Building One 1.2840.114 350.1.13.10 4.2.7.2.686 [id number] 044 [id number] [facility] 2020-05-11 00:00:00 2020-05-11 00:00:00 Telephone Giovany Antoine [facility] 1.2.840.114 350.1.13.10 4.2.7.2.686 [id number] [facility] 2020-05-08 08:45:00 2020-05-08 08:45:00 Outpatient R JEFFERSON WITT [facility] [id number] [facility] 2020-05-08 07:57:55 2020-05-08 08:12:55 Telemedici ne Visit Eduar [facility] Office Building One 1.840.114 350.1.13.10 4.2.7.2.686 [id number] 044 [id number] [facility] 2020-05-08 00:00:00 2020-05-08 00:00:00 Telephone Eduar [facility] Office Building One 1..114 350.1.13.10 4.2.7.2.686 [id number] 044 [id number] [facility] 2020-05-08 00:00:00 2020-05-08 00:00:00 Telephone [facility] 1..114 350.1.13.10 4.2.7.2.686 [id number] 044 [id number] [facility] 2020-05-02 00:00:00 2020-05-02 00:00:00 Telephone Eduar [facility] Office Building One 1.114 350.1.13.10 4.2.7.2.686 [id number] 044 [id number] [facility] 2020-04-24 09:15:00 2020-04-24 09:15:00 Outpatient R JEFFERSON WITT [facility] [id number] [facility] 2020-04-24 06:51:14 2020-04-24 07:06:14 Telemedici ne Visit Eduar [facility] Office Building One 1.114 350.1.13.10 4.2.7.2.686 [id number] 044 [id number] [facility] 2020-04-18 00:00:00 2020-04-18 00:00:00 Refill Eduar [facility] Office Building One 1.114 350.1.13.10 4.2.7.2.686 [id number] 044 [id number] [facility] 2020-04-13 00:00:00 2020-04-13 00:00:00 Refill Antoine, Giovany [facility] Building 1.114 350.1.13.10 4.2.7.2.686 [id number] 220 [id number] [facility] 2020-04-11 13:00:00 2020-04-11 13:00:00 Outpatient JEFFERSON PEREZ [facility] [id number] [facility] 2020-04-11 12:43:12 2020-04-11 12:58:12 Office Visit Jefferson Witt [facility] Office Building One 1..114 350.1.13.10 4.2.7.2.686 [id number] 044 [id number] [facility] 2020-04-08 00:00:00 2020-04-08 00:00:00 Refprabhjot Witt [facility] Office Building One 1.114 350.1.13.10 4.2.7.2.686 [id number] 044 [id number] [facility] 2020-04-04 13:45:29 2020-04-04 14:43:26 Office Visit Dilan Love [facility] 1..114 350.1.13.10 4.2.7.2.686 [id number] [facility] 2020-04-04 14:00:00 2020-04-04 14:00:00 Outpatient R DILAN LOVE [facility] [id number] [facility] 2020-04-02 00:00:00 2020-04-02 00:00:00 Refill Eduar [facility] Office Building One 1.114 350.1.13.10 4.2.7.2.686 [id number] 044 [id number] [facility] 2020-04-01 00:00:00 2020-04-01 00:00:00 Nurse Triage Alana Baptiste [facility] 1.2.840.114 350.1.13.10 4.2.7.2.686 [id number] [facility] 2020-04-01 00:00:00 2020-04-01 00:00:00 Telephone Aleks Sanders [facility] 1.20.114 350.1.13.10 4.2.7.2.686 [id number] [id number] [facility] 2020-03-28 14:15:00 2020-03-28 14:15:00 Outpatient R DILAN LOVE [facility] [id number] [facility] 2020-03-24 00:00:00 2020-03-24 00:00:00 Jefferson Katz [facility] Office Building One 1..114 350.1.13.10 4.2.7.2.686 [id number] 044 [id number] [facility] 2020-03-23 13:17:14 2020-03-23 14:30:58 Office Visit Giovany Antoine [facility] Building 1..114 350.1.13.10 4.2.7.2.686 [id number] [facility] 2020-03-23 13:30:00 2020-03-23 13:30:00 Outpatient R GIOVANY ANTOINE [facility] [id number] [facility] 2020-03-23 00:00:00 2020-03-23 00:00:00 Orders Only Doctor Unassigned, Mcallister [facility] 1.114 350.1.13.10 4.2.7.2.686 [id number] [facility] 2020-03-20 14:45:00 2020-03-20 14:45:00 Outpatient NOEMI ZAIDI [facility] [id number] [facility] 2020-03-19 00:00:00 2020-03-19 00:00:00 Telephone Giovany Antoine [facility] Building 1.2840.114 350.1.13.10 4.2.7.2.686 [id number] 220 [id number] [facility] 2020-03-19 00:00:00 2020-03-19 00:00:00 Refill Eduar [facility] Office Building One 1.2840.114 350.1.13.10 4.2.7.2.686 [id number] 044 [id number] [facility] 2020-03-16 00:00:00 2020-03-16 00:00:00 Refill Giovany Antoine [facility] Building 1.2840.114 350.1.13.10 4.2.7.2.686 [id number] 220 [id number] [facility] 2020-03-15 00:00:00 2020-03-15 00:00:00 Telephone Bassam [facility] Office Building One 1.0.114 350.1.13.10 4.2.7.2.686 [id number] 044 [id number] [facility] 2020-03-13 10:25:12 2020-03-13 23:59:00 Outpatient R JOSSE LEYVA [facility] [id number] [facility] 2020-03-13 10:25:12 2020-03-13 23:59:00 Hospital Encounter Josse Leyva [facility] 1.2840.114 350.1.13.10 4.2.7.2.686 [id number] [id number] [facility] 2020-03-13 09:37:13 2020-03-13 09:57:13 Urgent Care Provider, [facility] Gordon [facility] Office Building One 1.840.114 350.1.13.10 4.2.7.2.686 [id number] 044 [id number] [facility] 2020-03-13 09:40:00 2020-03-13 09:40:00 Outpatient R [facility] [id number] [facility] 2020-03-09 00:00:00 2020-03-09 00:00:00 Telephone Jefferson Witt [facility] Building 1.0.114 350.1.13.10 4.2.7.2.686 [id number] 044 [id number] [facility] 2020-03-07 00:00:00 2020-03-07 00:00:00 Telephone Giovany Antoine [facility] Building 1.2.114 350.1.13.10 4.2.7.2.686 [id number] 220 [id number] [facility] 2020-03-03 00:00:00 2020-03-03 00:00:00 Refill Jefferson Witt [facility] Office Building One 1..114 350.1.13.10 4.2.7.2.686 [id number] 044 [id number] [facility] 2020-03-02 00:00:00 2020-03-02 00:00:00 Telephone Giovany Antoine [facility] Building 1..114 350.1.13.10 4.2.7.2.686 [id number] 220 [id number] [facility] 2020-02-29 00:00:00 2020-02-29 00:00:00 Refill Jefferson Witt [facility] Office Building One 1..114 350.1.13.10 4.2.7.2.686 [id number] 044 [id number] [facility] 2020-02-28 00:00:00 2020-02-28 00:00:00 Refill Bassam WittPending sale to [facility] Office Building One 1.2.840.114 350.1.13.10 4.2.7.2.686 [id number] 044 [id number] [facility] 2020-02-28 00:00:00 2020-02-28 00:00:00 Telephone Giovany Antoine [facility] Building 1.2.840.114 350.1.13.10 4.2.7.2.686 [id number] 220 [id number] [facility] 2020-02-27 00:00:00 2020-02-27 00:00:00 Refprabhjot Witt [facility] Office Building One 1.2.840.114 350.1.13.10 4.2.7.2.686 [id number] 044 [id number] [facility] 2020-02-23 00:00:00 2020-02-23 00:00:00 Telephone Giovany Antoine [facility] Building 1.2.840.114 350.1.13.10 4.2.7.2.686 [id number] 220 [id number] [facility] 2020-02-21 00:00:00 2020-02-21 00:00:00 Telephone Giovany Antoine [facility] Building 1.2.840.114 350.1.13.10 4.2.7.2.686 [id number] 220 [id number] [facility] 2020-02-20 00:00:00 2020-02-20 00:00:00 Refill Bassam WittPending sale to [facility] Office Building One 1.2.840.114 350.1.13.10 4.2.7.2.686 [id number] 044 [id number] [facility] 2020-02-14 00:00:00 2020-02-14 00:00:00 Telephone Jefferson Witt [facility] Building 1.2.840.114 350.1.13.10 4.2.7.2.686 [id number] 044 [id number] [facility] 2020-02-10 00:00:00 2020-02-10 00:00:00 Refprabhjot Witt [facility] Office Building One 1.2.840.114 350.1.13.10 4.2.7.2.686 [id number] 044 [id number] [facility] 2020-02-08 00:00:00 2020-02-08 00:00:00 Refill Jefferson Witt [facility] 1.2.840.114 350.1.13.10 4.2.7.2.686 [id number] 044 [id number] [facility] 2020-02-02 00:00:00 2020-02-02 00:00:00 Refprabhjot Witt [facility] Office Building One 1.2.840.114 350.1.13.10 4.2.7.2.686 [id number] 044 [id number] [facility] 2020-02-02 00:00:00 2020-02-02 00:00:00 Telephone Giovany Antoine [facility] Building 1.2.840.114 350.1.13.10 4.2.7.2.686 [id number] 220 [id number] [facility] 2020-01-31 00:00:00 2020-01-31 00:00:00 Refill Eduar [facility] Office Building One 1.2.840.114 350.1.13.10 4.2.7.2.686 [id number] 044 [id number] [facility] 2020-01-26 00:00:00 2020-01-26 00:00:00 Refill Giovany Antoine Claudia [facility] Building 1.2.840.114 350.1.13.10 4.2.7.2.686 [id number] 220 [id number] [facility] 2020-01-24 00:00:00 2020-01-24 00:00:00 Refill Jefferson Witt [facility] Office Building One 1.20.114 350.1.13.10 4.2.7.2.686 [id number] 044 [id number] [facility] 2020-01-23 00:00:00 2020-01-23 00:00:00 Telephone Giovany Antoine [facility] 1.20.114 350.1.13.10 4.2.7.2.686 [id number] 220 [id number] [facility] 2020-01-18 00:00:00 2020-01-18 00:00:00 Refill Eduar Jefferson [facility] Office Building One 1..114 350.1.13.10 4.2.7.2.686 [id number] 044 [id number] [facility] 2020-01-09 11:54:37 2020-01-09 12:09:37 Office Visit Witt Jefferson [facility] Building 1.2.114 350.1.13.10 4.2.7.2.686 [id number] 044 [id number] [facility] 2020-01-09 12:00:00 2020-01-09 12:00:00 Outpatient R JEFFERSON WITT [facility] [id number] [facility] 2019-12-30 00:00:00 2019-12-30 00:00:00 Telephone Eduar [facility] Office Building One 1..114 350.1.13.10 4.2.7.2.686 [id number] 044 [id number] [facility] 2019-12-29 00:00:00 2019-12-29 00:00:00 Telephone WittJefferson [facility] Office Building One 1..114 350.1.13.10 4.2.7.2.686 [id number] 044 [id number] [facility] 2019-12-27 00:00:00 2019-12-27 00:00:00 Telephone [facility]ovany [facility]ine [facility] 1.2.840.114 350.1.13.10 4.2.7.2.686 [id number] [facility] 2019-12-27 00:00:00 2019-12-27 00:00:00 Refill Eduar [facility] Office Building One 1.2.840.114 350.1.13.10 4.2.7.2.686 [id number] 044 [id number] [facility] 2019-12-20 00:00:00 2019-12-20 00:00:00 Refill Eduar [facility] Office Building One 1.2.840.114 350.1.13.10 4.2.7.2.686 [id number] 044 [id number] [facility] 2019-12-15 10:46:49 2019-12-19 09:53:57 Urgent Care Provider, [facility] 1.2.840.114 350.1.13.10 4.2.7.2.686 [id number] 044 [id number] [facility] 2019-12-19 00:00:00 2019-12-19 00:00:00 Telephone Mehreen Leyvathia [facility] Office Building One 1.2.840.114 350.1.13.10 4.2.7.2.686 [id number] 044 [id number] [facility] 2019-12-16 00:00:00 2019-12-16 00:00:00 Refill Eduar [facility] Office Building One 1.2.840.114 350.1.13.10 4.2.7.2.686 [id number] 044 [id number] [facility] 2019-12-16 00:00:00 2019-12-16 00:00:00 RefBassam MoyaPending sale to [facility] Office Building One 1.0.114 350.1.13.10 4.2.7.2.686 [id number] [facility]:00:00 2019-12-15 11:00:00 Outpatient [facility] [id number] [facility] 2019-12-13 09:40:00 2019-12-13 09:40:00 Outpatient [facility] [id number] [facility] 2019-12-08 00:00:00 2019-12-08 00:00:00 Viktoriya Witt [facility] 1.0.114 350.1.13.10 4.2.7.2.686 [id number] [facility] 2019-12-01 00:00:00 2019-12-01 00:00:00 Refprabhjot Witt [facility] [address] [facility] 1.0.114 350.1.13.10 4.2.7.2.686 [id number] [facility] 2019-11-30 00:00:00 2019-11-30 00:00:00 Jefferson Katz [facility] Building 1.840.114 350.1.13.10 4.2.7.2.686 [id number] 044 [id number] [facility] 2019-11-29 00:00:00 2019-11-29 00:00:00 Telephone Pob1, Acute Care Clinic [facility] Office Building One 1.0.114 350.1.13.10 4.2.7.2.686 [id number] 044 [id number] [facility] 2019-11-28 00:00:00 2019-11-28 00:00:00 Refill Jefferson Witt [facility] Office Building One 1.2840.114 350.1.13.10 4.2.7.2.686 [id number] 044 [id number] [facility] 2019-11-25 08:03:12 2019-11-25 08:18:12 Citrix Lead Visit 2, Adc Lab Jefferson [facility] nal Building 1.2.840.114 350.1.13.10 4.2.7.2.686 [id number] [facility] 2019-11-25 08:00:00 2019-11-25 08:00:00 [facility] [id number] [facility] 2019-11-25 00:00:00 2019-11-25 00:00:00 Telephone Witt, Jefferson [facility] Office Building One 1.840.114 350.1.13.10 4.2.7.2.686 [id number] 044 [id number] [facility] 2019-11-24 00:00:00 2019-11-24 00:00:00 Telephone Keila Delcid [facility] Building 1.2.840.114 350.1.13.10 4.2.7.2.686 [id number] 044 [id number] [facility] 2019-11-24 00:00:00 2019-11-24 00:00:00 Telephone Rosette Contreras [facility] Office Building One 1.2840.114 350.1.13.10 4.2.7.2.686 [id number] 044 [id number] [facility] 2019-11-23 15:29:34 2019-11-23 23:59:00 Outpatient R KEILA DELCID [facility] [id number] [facility] 2019-11-23 15:15:00 2019-11-23 23:59:00 Hospital Encounter Keila [facility] 1.2840.114 350.1.13.10 4.2.7.2.686 [id number] [id number] [facility] 2019-11-23 14:33:27 2019-11-23 14:53:27 Urgent Care Pob1, Acute Care Clinic [facility] Office Building One 1.2840.114 350.1.13.10 4.2.7.2.686 [id number] 044 [id number] [facility] 2019-11-23 14:40:00 2019-11-23 14:40:00 Outpatient R [facility] [id number] [facility] 2019-11-23 00:00:00 2019-11-23 00:00:00 Refill Eduar [facility] Office Building One 1.840.114 350.1.13.10 4.2.7.2.686 [id number] 044 [id number] [facility] 2019-11-23 00:00:00 2019-11-23 00:00:00 Refill Dariel [facility] Office Building One 1.840.114 350.1.13.10 4.2.7.2.686 [id number] 044 [id number] [facility] 2019-11-16 00:00:00 2019-11-16 00:00:00 Telephone Giovany Antoine [facility] Building 1.2840.114 350.1.13.10 4.2.7.2.686 [id number] 220 [id number] [facility] 2019-11-15 00:00:00 2019-11-15 00:00:00 Refill Eduar [facility] Office Building One 1.840.114 350.1.13.10 4.2.7.2.686 [id number] 044 [id number] [facility] 2019-11-10 08:41:49 2019-11-10 08:56:49 Office Visit Jefferson Witt [facility] Building 1.20.114 350.1.13.10 4.2.7.2.686 [id number] 044 [id number] [facility] 2019-11-10 08:45:00 2019-11-10 08:45:00 [facility] [id number] [facility] 2019-11-07 00:00:00 2019-11-07 00:00:00 Telephone Eduar Jefferson [facility] Office Building One 1.0.114 350.1.13.10 4.2.7.2.686 [id number] 044 [id number] [facility] 2019-11-02 00:00:00 2019-11-02 00:00:00 Refill Bassam Wittony [facility] Office Building One 1..114 350.1.13.10 4.2.7.2.686 [id number] 044 [id number] [facility] 2019-10-26 00:00:00 2019-10-26 00:00:00 Refill Eduar Jefferson [facility] Office Building One 1..114 350.1.13.10 4.2.7.2.686 [id number] 044 [id number] [facility] 2019-10-24 00:00:00 2019-10-24 00:00:00 Telephone Eduar Jefferson [facility] Office Building One 1..114 350.1.13.10 4.2.7.2.686 [id number] 044 [id number] [facility] 2019-10-21 00:00:00 2019-10-21 00:00:00 Refill Giovany Antoine [facility] Building 1.2.840.114 350.1.13.10 4.2.7.2.686 [id number] 220 [id number] [facility] ity [facility] 2019-10-18 08:20:00 2019-10-18 08:20:00 Outpatient R [facility] [id number] [facility] ity [facility] 2019-10-14 00:00:00 2019-10-14 00:00:00 Telephone Giovany Antoine [facility] nal Building 1.2.840.114 350.1.13.10 4.2.7.2.686 [id number] 220 [id number] [facility] ity [facility] 2019-10-14 00:00:00 2019-10-14 00:00:00 Telephone Giovany Antoine [facility] Building 1.2.840.114 350.1.13.10 4.2.7.2.686 [id number] 220 [id number] [facility] ity [facility] 2019-10-13 00:00:00 2019-10-13 00:00:00 Telephone Eduar [facility] Office Building One 1.2.840.114 350.1.13.10 4.2.7.2.686 [id number] 044 [id number] [facility] 2019-10-12 00:00:00 2019-10-12 00:00:00 Refill Eduar [facility] Office Building One 1.2.840.114 350.1.13.10 4.2.7.2.686 [id number] 044 [id number] [facility]-10-11 00:00:00 2019-10-11 00:00:00 Telephone Eduar [facility] Office Building One 1.2.840.114 350.1.13.10 4.2.7.2.686 [id number] 044 [id number] [facility] 2019-10-11 00:00:00 2019-10-11 00:00:00 Orders Only Doctor Unassigned, Mcallister [facility] 1.2840.114 350.1.13.10 4.2.7.2.686 [id number] 009 [id number] [facility] 2019-10-04 00:00:00 2019-10-04 00:00:00 Refprabhjot Witt [facility] Office Building One 1.840.114 350.1.13.10 4.2.7.2.686 [id number] 044 [id number] [facility] 2019-09-29 00:00:00 2019-09-29 00:00:00 Telephone Eduar [facility] Office Building One 1.0.114 350.1.13.10 4.2.7.2.686 [id number] 044 [id number] [facility] 2019-09-29 00:00:00 2019-09-29 00:00:00 Telephone Eduar [facility] Office Building One 1.840.114 350.1.13.10 4.2.7.2.686 [id number] 044 [id number] [facility] 2019-09-28 00:00:00 2019-09-28 00:00:00 Refprabhjot Witt [facility] Office Building One 1.840.114 350.1.13.10 4.2.7.2.686 [id number] 044 [id number] [facility] 2019-09-28 00:00:00 2019-09-28 00:00:00 Telephone Eduar [facility] Office Building One 1.2840.114 350.1.13.10 4.2.7.2.686 [id number] 044 [id number] [facility] 2019-09-27 00:00:00 2019-09-27 00:00:00 Telephone Eduar [facility] Office Building One 1.2840.114 350.1.13.10 4.2.7.2.686 [id number] 044 [id number] [facility] 2019-09-26 14:15:35 2019-09-26 14:45:35 Office Visit Jefferson Witt [facility] Office Building One 1..114 350.1.13.10 4.2.7.2.686 [id number] 044 [id number] [facility] 2019-09-26 14:30:00 2019-09-26 14:30:00 [id number] [facility] 2019-09-26 00:00:00 2019-09-26 00:00:00 Orders Only Doctor Unassigned, Mcallister [facility] 1..114 350.1.13.10 4.2.7.2.686 [id number] 009 [id number] [facility] 2019-09-23 13:30:00 2019-09-23 14:11:38 Outpatient R [facility]ANY [facility] [id number] [facility] 2019-09-23 13:25:38 2019-09-23 14:11:38 Office Visit Giovany Antoine [facility] Building 1.114 350.1.13.10 4.2.7.2.686 [id number] [facility] 2019-09-23 00:00:00 2019-09-23 00:00:00 Nurse Triage Ciara Alvarez [facility] 1.0.114 350.1.13.10 4.2.7.2.686 [id number] 019 [id number] [facility] 2019-09-16 00:00:00 2019-09-16 00:00:00 Telephone [facility] Office Building One 1..114 350.1.13.10 4.2.7.2.686 [id number] 044 [id number] [facility] 2019-09-13 00:00:00 2019-09-13 00:00:00 Telephone Jefferson Witt [facility] Office Building One 1.2.840.114 350.1.13.10 4.2.7.2.686 [id number] 044 [id number] [facility] 2019-09-13 00:00:00 2019-09-13 00:00:00 Orders Only Doctor Unassigned, Mcallister [facility] 1.2.840.114 350.1.13.10 4.2.7.2.686 [id number] [id number] [facility] 2019-09-12 00:00:00 2019-09-12 00:00:00 Refill Eduar [facility] Office Building One 1.840.114 350.1.13.10 4.2.7.2.686 [id number] 044 [id number] [facility] 2019-09-08 00:00:00 2019-09-08 00:00:00 Refill Eduar [facility] Office Building One 1.2.840.114 350.1.13.10 4.2.7.2.686 [id number] 044 [id number] [facility] 2019-09-05 00:00:00 2019-09-05 00:00:00 Refill Eduar [facility] Office Building One 1.2840.114 350.1.13.10 4.2.7.2.686 [id number] 044 [id number] [facility] 2019-08-25 00:00:00 2019-08-25 00:00:00 Refill Eduar [facility] Office Building One 1.2840.114 350.1.13.10 4.2.7.2.686 [id number] 044 [id number] [facility] 2019-08-25 00:00:00 2019-08-25 00:00:00 Refill Jefferson Witt [facility] Office Building One 1.2.840.114 350.1.13.10 4.2.7.2.686 [id number] 044 [id number] [facility] 2019-08-23 00:00:00 2019-08-23 00:00:00 Refill Giovany Antoine [facility] nal Building 1.2.840.114 350.1.13.10 4.2.7.2.686 [id number] 220 [id number] [facility] 2019-08-17 00:00:00 2019-08-17 00:00:00 Telephone Giovany Antoine [facility] Building 1.2.840.114 350.1.13.10 4.2.7.2.686 [id number] 220 [id number] [facility] 2019-08-15 00:00:00 2019-08-15 00:00:00 Refill Jefferson Witt [facility] Office Building One 1.2.840.114 350.1.13.10 4.2.7.2.686 [id number] 044 [id number] [facility] 2019-08-13 00:00:00 2019-08-13 00:00:00 Refill Jefferson Witt [facility] Office Building One 1.2.840.114 350.1.13.10 4.2.7.2.686 [id number] 044 [id number] [facility] 2019-04-15 00:00:00 2019-04-15 00:00:00 Refill Jefferson Witt [facility] Office Building One 1.2.840.114 350.1.13.10 4.2.7.2.686 [id number] 044 [id number] [facility] 2019-04-13 13:52:51 2019-04-13 14:14:54 Office Visit Jefferson Witt [facility] Office Building One 1.840.114 350.1.13.10 4.2.7.2.686 [id number] 044 [id number] [facility] 2019-04-13 00:00:00 2019-04-13 00:00:00 Orders Only Doctor Unassigned, Mcallister [facility] 1.840.114 350.1.13.10 4.2.7.2.686 [id number] 009 [id number] [facility] 2019-04-07 00:00:00 2019-04-07 00:00:00 Refill Jefferson Witt [facility] Office Building One 1..114 350.1.13.10 4.2.7.2.686 [id number] 044 [id number] [facility] 2019-04-05 00:00:00 2019-04-05 00:00:00 Telephone Giovany Antoine [facility] Building 1.2840.114 350.1.13.10 4.2.7.2.686 [id number] [facility] 2019-04-05 00:00:00 2019-04-05 00:00:00 Refill Eduar [facility] Office Building One 1..114 350.1.13.10 4.2.7.2.686 [id number] 044 [id number] [facility] 2019-03-31 00:00:00 2019-03-31 00:00:00 Refill Eduar Jefferson [facility] Office Building One 1..114 350.1.13.10 4.2.7.2.686 [id number] 044 [id number] [facility] 2019-03-29 00:00:00 2019-03-29 00:00:00 Telephone Giovany Antoine [facility] Building 1.2.840.114 350.1.13.10 4.2.7.2.686 [id number] 220 [id number] [facility] 2019-03-29 00:00:00 2019-03-29 00:00:00 Orders Only Doctor Unassigned, Mcallister [facility] 1.2.840.114 350.1.13.10 4.2.7.2.686 [id number] 009 [id number] [facility] 2019-03-21 00:00:00 2019-03-21 00:00:00 Telephone Giovany Antoine [facility] Building 1.2.840.114 350.1.13.10 4.2.7.2.686 [id number] 220 [id number] [facility] 2019-03-17 00:00:00 2019-03-17 00:00:00 Refprabhjot Witt [facility] Office Building One 1.2.840.114 350.1.13.10 4.2.7.2.686 [id number] 044 [id number] [facility] 2019-03-17 00:00:00 2019-03-17 00:00:00 Viktoriya Witt [facility] Office Building One 1.2.840.114 350.1.13.10 4.2.7.2.686 [id number] 044 [id number] [facility] 2019-03-09 00:00:00 2019-03-09 00:00:00 Viktoriya Witt [facility] Office Building One 1.2.840.114 350.1.13.10 4.2.7.2.686 [id number] 044 [id number] [facility] 2019-03-03 00:00:00 2019-03-03 00:00:00 Viktoriya Witt [facility] Office Building One 1.2.840.114 350.1.13.10 4.2.7.2.686 [id number] 044 [id number] [facility] 2019-02-28 00:00:00 2019-02-28 00:00:00 Viktoriya Witt [facility] Office Building One 1.2.840.114 350.1.13.10 4.2.7.2.686 [id number] 044 [id number] [facility] 2018-11-01 00:00:00 2018-11-01 00:00:00 Viktoriya Witt [facility] Office Building One 1..840.114 350.1.13.10 4.2.7.2.686 [id number] 044 [id number] [facility] Results Test Description Test Time Test Comments Results Result Co mments Source [facility] [id number] 21:11:47 Ordered by an unspecified provider.[facility] - [id number] 17:53:43Ordered by an unspecified provider.[facility] [id number] 20:19:26Ordered by an unspecified provider.[facility] RESULTS 2023-11-16 17:14:14Ordered by an unspecified provider.[facility] [id number] 18:46:11Ordered by an unspecified provider.[facility] (SCANNED) DOCUMENTS 2023-11-05 14:00:05Ordered by an unspecified provider.[facility] - [id number] 12:43:55Ordered by an unspecified provider.[facility] [id number] 16:16:26Ordered by an unspecified provider.[facility] Thyroid Stimulating [id number] 22:06:03* Test Item Value Reference Range Interpretation Comme nts TSH (test code = 7633675716) 1.65 0.45-4.70 Lab Interpretation (test cod e = 06372-5) Normal [facility] System[facility]cos[facility] Hemoglobin (A1C)2023-10-14 21:48:55* Test Item Value Reference Range Interpretation Comme nts HGB A1C (test code = 4548-4) 8.0 % 4.0-5.7 H DENISHA (test code = DENISHA) Reference RangesNormal: <5.7%Prediabetes: 5.7 - 6.4%Diabetes: > 6.5% Lab Interpretation (test code = 75607-7) Abnormal [facility]. Metabolic Panel (13736)2023-10-14 21:36:22* Test Item Value Reference Range Interpretation Comme nts NA (test code = 1070403048) 138 mmol/L 135-145 K (test code = 2268946302) 3.0 mmol/L 3.5-5.0 L CL (test code = 5930796648) 96 mmol/L 98-108 L CO2 TOTAL (test code = 4784924586) 32 mmol/L 23-31 H AGAP (test code = 7967779135) 10 2-16 BUN (test code = 2971694961) 13 mg/dL 7-23 GLUCOSE (test code = 4564225510) 186 mg/dL 70-110 H CREATININE (test code = 2160-0) 0.76 mg/dL 0.50-1.04 TOTAL BILI (test code = 2017675630) 0.5 mg/dL 0.1-1.1 CALCIUM (test code = 4732062232) 8.6 mg/dL 8.6-10.6 T PROTEIN (test code = 9987975375) 6.5 g/dL 6.3-8.2 ALBUMIN (test code = 9990095853) 3.7 g/dL 3.5-5.0 ALK PHOS (test code = 9695328115) 64 U/L 34-122 ALTv (test code = 1742-6) 13 U/L 5-35 AST(SGOT) (test code = 0565390144) 23 U/L 13-40 eGFR (test code = 31700-9) 88.7 mL/min/1.73m2 CKD-EPI eGFR (2020). Assuming creatinine has been stable day-to-day for at least three months, the eGFR indicates Category G2 (60 - 89 mL/min/1.73 m2) Lab Interpretation (test code = 40868-6) Abnormal [facility] System[facility] (87814)(Total Cholesterol, Triglycerides, HDL)2023-10-14 21:36:22* Test Item Value Reference Range Interpretation Comme nts CHOL (test code = 5304039617) 107 mg/dL 120-200 L HDL (test code = 2662025229) 22 mg/dL >=50 L HDLC RATIO (test code = 6786115784) 4.9 <=4.5 H TRIG (test code = 4133113784) 262 mg/dL 30-170 H LDL CHOL (test code = 05039-6) 33 mg/dL <=160 VLDL (test code = 8642132967) 52 mg/dL 5-60 Lab Interpretation (test cod e = 55029-0) Abnormal [facility] HEMOGLOBIN A1C [id number] 17:50:00* Test Item Value Reference Range Interpretation Comme nts POCT HBA1C (test code = 4548-4) 7.5 % 4-6 A Lab Interpretation (test cod e = 80872-3) Abnormal [facility] HEMOGLOBIN A1C [id number] 17:50:00* Test Item Value Reference Range Interpretation Comme nts POCT HBA1C (test code = 4548-4) 7.5 % 4-6 A Lab Interpretation (test cod e = 71899-2) Abnormal [facility] MOLECULAR [id number] 16:34:56* Test Item Value Reference Range Interpretation Comme nts POCT Molecular FluA (test co de = 13006-2) Negative Negative POCT Molecular FluB (test co de = 59129-7) Negative Negative Lab Interpretation (test cod e = 26776-9) Normal [facility] MOLECULAR [id number] 16:34:56* Test Item Value Reference Range Interpretation Comme nts POCT Molecular FluA (test co de = 97780-1) Negative Negative POCT Molecular FluB (test co de = 80888-7) Negative Negative Lab Interpretation (test cod e = 76704-0) Normal [facility] MOLECULAR [id number] 16:30:10* Test Item Value Reference Range Interpretation Comme nts POCT Molecular Strep (test c ode = 12234-1) Negative Negative Lab Interpretation (test cod e = 20151-8) Normal [facility] MOLECULAR [id number] 16:30:10* Test Item Value Reference Range Interpretation Comme nts POCT Molecular Strep (test c ode = 73369-6) Negative Negative Lab Interpretation (test cod e = 96656-8) Normal [facility]. METABOLIC PANEL (83769)2022-07-19 21:35:09* Test Item Value Reference Range Interpretation Comme nts NA (test code = 7443607319) 139 mmol/L 135-145 K (test code = 1890704245) 4.1 mmol/L 3.5-5.0 CL (test code = 5351334021) 102 mmol/L 98-108 CO2 TOTAL (test code = 7600842444) 29 mmol/L 23-31 AGAP (test code = 8717425166) 2-16 BUN (test code = 2997481803) 12 mg/dL 7-23 GLUCOSE (test code = 9425003759) 236 mg/dL 70-110 H CREATININE (test code = 8850252157) 0.59 mg/dL 0.50-1.04 TOTAL BILI (test code = 8856893615) 0.5 mg/dL 0.1-1.1 CALCIUM (test code = 8943423636) 8.8 mg/dL 8.6-10.6 T PROTEIN (test code = 3589463805) 7.0 g/dL 6.3-8.2 ALBUMIN (test code = 6614770288) 4.2 g/dL 3.5-5.0 ALK PHOS (test code = 4135444721) 77 U/L 34-122 ALTv (test code = 1742-6) 27 U/L 5-35 AST(SGOT) (test code = 8857593153) 22 U/L 13-40 eGFR (test code = 1830837286) mL/min/1.73m2 DENISHA (test code = DENISHA) Association [...] imaging tests). Lab Interpretation (test code = 95795-4) Abnormal [facility] WITH [id number] 21:11:06* Test Item Value Reference Range Interpretation Comme nts WBC (test code = 6690-2) See_Comment [[employer]] The system which generated this result transmitted reference range: 4.30 - 11.10 10*3/?L. The reference range was not used to interpret this result as normal/abnormal. RBC (test code = 789-8) See_Comment [[employer]] The system which generated this result transmitted [...] g/dL 31.6-35.1 L RDW-SD (test code = 93019-2) 43.3 fL 39.0-49.9 RDW-CV (test code = 788-0) 14.8 % 12.0-15.5 PLT (test code = 777-3) See_Comment [Automated messa ge] The system which generated this result transmitted reference range: 166 - 358 10*3/?L. The reference range was not used to interpret this result as normal/abnormal. MPV (test code = 69709-2) 11.0 fL 9.5-12.9 NRBC/100 WBC (test code = 7524819237) See_Comment [Automated [employer] ssage] The system which generated this result transmitted reference range: 0.0 - 10.0 /100 WBCs. The reference range was not used to interpret this result as normal/abnormal. NRBC x10^3 (test code = 9808428057) See_Comment [Automated messa ge] The system which generated this result transmitted reference range: 10*3/?L. The reference range was not used to interpret this result as normal/abnormal. GRAN MAT (NEUT) % (test code = 770-8) 66.5 % IMM GRAN % (test code = 1156918828) 0.80 % LYMPH % (test code = 736-9) 21.8 % MONO % (test code = 5905-5) 7.3 % EOS % (test code = 713-8) 2.8 % BASO % (test code = 706-2) 0.8 % GRAN MAT x10^3(ANC) (test code = 9237426440) 7.14 10*3/uL 1.88-7.09 H IMM GRAN x10^3 (test code = 0412996804) 0.09 10*3/uL 0.00-0.06 H LYMPH x10^3 (test code = 731-0) 2.35 10*3/uL 1.32-3.29 MONO x10^3 (test code = 742-7) 0.79 10*3/uL 0.33-0.92 EOS x10^3 (test code = 711-2) 0.30 10*3/uL 0.03-0.39 BASO x10^3 (test code = 704-7) 0.09 10*3/uL 0.01-0.07 H Lab Interpretation (test code = 44661-0) Abnormal [facility] [id number] 16:47:33* Test Item Value Reference Range Interpretation Comments TROPONIN I (test code = 7255423424) 0.005 ng/mL See_Comment [Automated message] The system [...] of biotin. Lab Interpretation (test code = 44956-1) Normal [facility] METABOLIC PANEL (50161)2022-05-29 16:36:15* Test Item Value Reference Range Interpretation Comme nts NA (test code = 0948438158) 137 mmol/L 135-145 K (test code = 0151390135) 4.4 mmol/L 3.5-5.0 CL (test code = 3617629785) 100 mmol/L 98-108 CO2 TOTAL (test code = 9052457598) 22 mmol/L 23-31 L AGAP (test code = 8239558611) 2-16 BUN (test code = 4314710558) 14 mg/dL 7-23 GLUCOSE (test code = 8766606830) 190 mg/dL 70-110 H CREATININE (test code = 2940338444) 0.70 mg/dL 0.50-1.04 TOTAL BILI (test code = 4909491399) 0.3 mg/dL 0.1-1.1 CALCIUM (test code = 6085353177) 9.6 mg/dL 8.6-10.6 T PROTEIN (test code = 3794109711) 6.8 g/dL 6.3-8.2 ALBUMIN (test code = 6971520154) 4.2 g/dL 3.5-5.0 ALK PHOS (test code = 9523791244) 67 U/L 34-122 ALTv (test code = 1742-6) 40 U/L 5-35 H AST(SGOT) (test code = 7455533158) 44 U/L 13-40 H eGFR (test code = 6650770808) mL/min/1.73m2 DENISHA (test code = DENISHA) Association [...] imaging tests). Lab Interpretation (test code = 33367-8) Abnormal [facility]2022-[facility]-27 16:35:55* Test Item Value Reference Range Interpretation Comme nts LIPASE (test code = 4351720130) 85 U/L 0-220 Lab Interpretation (test cod e = 30754-8) Normal [facility] WITH [id number] 16:18:33* Test Item Value Reference Range Interpretation [...] 32.7 g/dL 31.6-35.1 RDW-SD (test code = 40101-8) 43.2 fL 39.0-49.9 RDW-CV (test code = 788-0) 15.1 % 12.0-15.5 PLT (test code = 777-3) See_Comment [Automated messa ge] The system which generated this result transmitted reference range: 166 - 358 10*3/?L. The reference range was not used to interpret this result as normal/abnormal. MPV (test code = 67179-6) 10.3 fL 9.5-12.9 NRBC/100 WBC (test code = 6404734056) See_Comment [Automated [employer] ssage] The system which generated this result transmitted reference range: 0.0 - 10.0 /100 WBCs. The reference range was not used to interpret this result as normal/abnormal. NRBC x10^3 (test code = 5883687176) See_Comment [Automated messa ge] The system which generated this result transmitted reference range: 10*3/?L. The reference range was not used to interpret this result as normal/abnormal. GRAN MAT (NEUT) % (test code = 770-8) 66.7 % IMM GRAN % (test code = 3917639265) 0.80 % LYMPH % (test code = 736-9) 23.3 % MONO % (test code = 5905-5) 5.2 % EOS % (test code = 713-8) 3.0 % BASO % (test code = 706-2) 1.0 % GRAN MAT x10^3(ANC) (test code = 5363698217) 6.50 10*3/uL 1.88-7.09 IMM GRAN x10^3 (test code = 8955149926) 0.08 10*3/uL 0.00-0.06 H LYMPH x10^3 (test code = 731-0) 2.27 10*3/uL 1.32-3.29 MONO x10^3 (test code = 742-7) 0.51 10*3/uL 0.33-0.92 EOS x10^3 (test code = 711-2) 0.29 10*3/uL 0.03-0.39 BASO x10^3 (test code = 704-7) 0.10 10*3/uL 0.01-0.07 H Lab Interpretation (test code = 03893-3) Abnormal [facility] HEMOGLOBIN A1C [id number] 21:18:00* Test Item Value Reference Range Interpretation Comme [facility] POCT HBA1C (test code = 4548-4) 7.5 % 4-6 A Lab Interpretation (test cod e = 12927-4) Abnormal [facility] HEMOGLOBIN A1C [id number] 21:18:00* Test Item Value Reference Range Interpretation Comme [facility] POCT HBA1C (test code = 4548-4) 7.5 % 4-6 A Lab Interpretation (test cod e = 40111-6) Abnormal [facility] Notes Date/Time Note Provider Source 2025-03-01 18:45:00 Pt pharmacy is requesting for the the second time a refill on tizanidine 4mg tablets. Briana Morales MA [facility] 2025-02-27 12:48:58 Requesting Rx refill [facility] 2025-02-26 11:26:42 Re[facility] from [facility] and have placed in provider's box for signature. Khalida Payton [facility] 2025-02-21 13:10:19 Called pt to let her know that Dr. Witt states she needs an appointment, it has been over a year. Pt understood and would call and make an appointment. Nikki Ram [facility] 2025-02-21 12:58:15 Ilsa Johnson is a 64 year old female PT calling about referral placed on 02/16/[address] Witt. Please review. Tosin Johnson [facility] 2025-02-17 10:38:[address] Referral if approved Gabi Kirkland MA [facility] 2025-02-16 16:19:24 Copied from [facility] #[id number]. Topic: Clinical - Referral >> Feb 16, 2025 4:17 PM Patient Postal Transportation Clerk wrote: Ilsa Johnson is a 64 year [...] provider / location patient requesting: Neurosurgery - [address], [address], [place] [address] Appt already scheduled?: No If yes, Date of Appt: n/a Yoel Holder [facility] 2024-12-27 09:55:23 Called number on file. As per Dr. Riddle, pt is to be seen again in to be reevaluated. Pt voiced understanding. Magdalene Julio RN 12/27/2024 9:57 AM Magdalene Julio RN [facility] 2024-12-27 09:12:45 Unable to simply prescribe something. Unclear what is triggering worsening. Patient will need to be seen. [facility] 2024-12-26 17:59:51 Please advise Briana Morales MA [facility] 2024-12-26 15:53:46 Ilsa Johnson is a 64 year old female calling to see if Dr can prescribe something for her worsening symptoms.Pt had appt on 12/21 and say since then has gotten fever and is coughing up green mucus.Pt was offered another appt but she declined [id number] - [place], [place] - [address] [facility] [employer] [facility] [address] [place] [address] Essie York [facility] 2024-12-22 12:04:14 Provider who saw [...] laryngitis/viruses. She states understanding. ER precautions discussed. FAMILY RESOURCE MANAGEMENT SPECIALIST-FAMILY MIDLEVEL PROVIDER [facility] 2024-12-22 10:46:34 Pt is calling back to check on her request for an antibiotic. She is trying to see if a prescription can be sent in this morning. Juany Bower [facility] 2024-12-22 09:45:45 Called and spoke w/ pt. Pt stated she has had a fever, SOB and feels as if she's going to pass out. Asked pt to please got to ER if her symptoms begin to worsen. Please advise. Halley Grier MA [facility] 2024-12-22 09:26:20 Ilsa Johnson is a 64 year old female calling wanting to speak with a nurse about getting antibiotic. Pt was seen yesterday in the urgent care and says she wasn't prescribed anything. Pts says she woke up feeling flushed and hot with a fever of 101. Essie York [facility] 2024-12-22 07:58:43 Ilsa Johnson is a 64 year old female and the pt is calling to request a nurse call for her current symptoms. Pt states she has Laryngitis and was seen yesterday but not given any antibiotics. Pt states woke up this morning with 101 fever and would like antibiotics. Callback #: [phone] Please contact and advise. Nadia Leos [facility] 2024-11-08 18:12:22 Last Refilled: Disp Refills Start End JOANNE amLODIPine 10 mg tablet 30 tablet 0 10/20/2024 -- No Sig: TAKE 1 TABLET BY MOUTH IN THE MORNING Sent to pharmacy as: amLODIPine 10 mg tablet (NORVASC) Class: eRX Notes to Pharmacy: Appointment needed Route: Oral Order: [id number] Date/Time Signed: 10/20/2024 10:46 E-Prescribing Status: Receipt confirmed by pharmacy (10/20/2024 10:47 AM CDT) Disp Refills Start End JOANNE carvediloL 6.25 mg tablet 180 tablet 1 05/11/2024 -- No Sig: TAKE 1 TABLET BY MOUTH IN THE MORNING AND IN THE EVENING WITH FOOD Sent to pharmacy as: carvediloL 6.25 mg tablet (COREG) Class: eRX Order: [id number] Date/Time Signed: 05/11/2024 07:51 E-Prescribing Status: Receipt [...] meeting all other requirements Maggie Schreiber RN [facility] 2024-10-27 13:48:36 Received fax requesting one touch verio touch strips and meter, per provider okay to send in. Ana Reardon RN [facility] 2024-10-25 14:13:31 Halley victoria hernandez is calling back about the script for TRUE METRIX glucose strips. She stated the insurance has a specific brand for coverage and in order to process the order they need a new script. She is asking for a script for One touch ultra machine with all supplies. [id number] - [place], [place] - [address] [facility] & [employer] [facility] [address] [place] [address] Juany Bower [facility] 2024-10-24 10:41:19 Please review and advise. JULIO 12/25/23 NOV 04/07/25 Melanie Stanley LVN [facility] 2024-10-24 10:39:18 ANA for True Metrix Glucose strips initiated on 10/24/2024 (Hayden: [id number]) PA Outcome Denied on October 24 by [employer] Medicare 2016 This product is not eligible for coverage under your Medicare Part D benefit, however, coverage may be available under Medicare Part A or B. [facility] 2024-10-21 15:52:22 Bert Hernandez is requesting a new prescription to replace the TRUE METRIX GLUCOSE TEST STRIP strip due to insurance no longer covering that prescription. [id number] - [place], [place] - [address] [facility] [employer] & [employer] [address] [place] [address] Ras Moya [facility] 2024-10-05 08:27:47 reviewed dental clearance, fax sent to [facility] waiting for confirmation. 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 FLUME FEEDING MACHINE OPERATOR Glenys Spicer MA [facility] 2024-10-04 10:42:08 Ilsa Johnson is a 64 year old female Kim from [facility] is sending over clearance request she says the pt is in desperate need of dental work PH [phone] ext [phone] Fx [phone] ON [facility] 2024-08-10 11:34:22 Images from the [...] Witt MD Last refill: 05/11/2024 Rx #: [id number]|1|0|1 Calcium Channel Blockers Weyuyf7808/10/2024 05:45 AM Protocol Details Valid encounter within last 12 months To be filled at: [facility] #[id number] - [place], [place] - [address] AT [employer] [facility] [employer] Recent Visits Date Type Provider Dept 12/02/23 [...] meeting all other requirements ON Sage MA [facility] 2024-07-12 14:13:48 Last Refilled: Disp Refills Start End JOANNE FUROSEMIDE 80 mg tablet 30 tablet 5 04/13/2023 -- No Sig: TAKE 1 TABLET BY MOUTH IN THE MORNING Sent to pharmacy as: furosemide 80 mg tablet (LASIX) Class: eRX Route: Oral Order: [id number] Date/Time Signed: 04/13/2023 08:49 E-Prescribing Status: Receipt [...] authorizing provider and meeting all other requirements [facility] Lead Visit on 11/09/2023 Component Date Value K 11/09/2023 4.8 WBC 11/09/2023 9.17 RBC 11/09/2023 4.49 HGB 11/09/2023 10.0 (L) HCT 11/09/2023 34.1 (L) MCH 11/09/2023 22.3 (L) MCV 11/09/2023 75.9 (L) MCHC 11/09/2023 29.3 (L) PLT 11/09/2023 321 MPV 11/09/2023 11.6 RDW-CV 11/09/2023 16.5 (H) RDW-SD 11/09/2023 45.3 NRBC x10 3 11/09/2023 <0.01 NRBC/100 WBC 11/09/2023 0.0 [facility] Lead Visit on 10/14/2023 Component Date Value NA [...] (H) BASO x10 3 10/14/2023 0.10 (H) [facility] Lead Visit on 08/14/2023 Component Date Value WBC [...] HBA1C 07/10/2023 7.5 (A) ON Schreiber RN [facility] 2024-04-13 10:35:01 Images from the [...] Witt MD Last refill: 01/06/2024 Rx #: [id number]|1|0|1 Cardiovascular: CHAZ Inhibitors Qoaytm1604/13/2024 10:20 AM Protocol Details Valid encounter within last 12 months K in normal range and within 360 days Cr in normal range and within 360 days To be filled at: [facility] #[id number] - [place], [place] - [address] AT [employer] [facility] [employer] Recent Visits Date Type Provider Dept 12/02/23 [...] meeting all other requirements Flakita Sage MA [facility] 2024-02-15 14:42:44 Medication refilled per policy: Last office visit: 12/25/23 Next office visit: 05/13/24 Requested Prescriptions Pending Prescriptions Disp Refills Insulin [place], Disposable, (BD ULTRAFINE III MINI PEN) 31 gauge x 10/16" Ndle [Pharmacy Med Name: B-D PEN NDL MINI 80FR9WO(10/16)PRPL] 400 Each 1 Sig: USE FOUR TIMES DAILY DIRECTED Last fill date: 07/10/23 Labs: HGB A1C (%) Date Value 10/14/2023 8.0 (H) Notes: Type 2 diabetes mellitus without complication, with long-term current use of insulin E11.9 Melanie Stanley LVN [facility] 2024-02-15 09:29:31 Images from the [...] Witt MD Last refill: 11/30/2023 Rx #: [id number]|1|0|1 Provider Review Required Iwxtzn9602/13/2024 05:45 AM Protocol Details This refill cannot be delegated Valid encounter within last 12 months To be filled at: [facility][id number] - [place], [place] - [address] AT [employer] [facility] [employer] Recent Visits Date Type Provider Dept 12/02/23 [...] authorizing provider and meeting all other requirements [facility] 2024-02-12 09:34:17 Mira with [facility] is notifying the clinic that the patient cancelled re certification appointment due to going to the ER for abdominal pain. Ras Moya [facility] 2024-01-26 12:00:40 From: Ilsa Johnson To: Office of Jefferson Witt Sent: 01/26/2024 11:24 AM CDT Subject: Medication Renewal Request Refills have been requested for the following medications: clonazePAM 1 mg tablet [Jefferson Witt] Preferred pharmacy: [facility] [address] [place] [address] [address] [facility] [employer] Delivery method: Pickup [facility] 2024-01-14 15:40:58 [place] [facility] 2024-01-14 15:09:28 Ilsa Johsnon is a 63 year old female Vanessa with [facility] is calling to check status of a wound care order that they were needing signed. They sent it through suture sign in October. She is going to upload it again. Sarah Quinonez [facility] 2024-01-01 14:34:[address] Antoine [facility] 2023-12-31 15:48:39 Spoke to patient over the phone. Emphasized lifestyle modifications. Patient with h/o pancreatitis, but had gallstones that time. It may be difficult to institute GLP-1 agonist. Patient is also worried about UTI and yeast infection, so difficulty with SGLT-2i. Sometimes she's on antibiotics. Will discuss with Dr. Antoine. Kendell Fritz MD, PGY-4 Endocrinology Fellow [facility] 2023-12-29 14:40:10 From: Ilsa Johnson To: Office of Jefferson Witt Sent: 12/29/2023 2:39 PM CDT Subject: Medication Renewal Request Refills have been requested for the following medications: clonazePAM 0.5 mg tablet [Jefferson Witt] [id number] [place] [address] [address] [facility] Delivery method: Pickup Recent Visits Date [...] Fam Med 12/22/22 Office Visit Cande Daniel, START UP SPECIALIST [facility] Fam Med Showing recent visits within past 540 days with a meds authorizing provider and meeting all other requirements Future Appointments No visits were found meeting these conditions. Showing future appointments within next 150 days with a meds authorizing provider and meeting all other requirements T [facility] 2023-12-29 08:08:41 Ilsa Johnson is a 63 year old female Pt is calling requesting to switch from metformin and tresiba to ozempic, she states that the metformin isn't bringing her sugar down enough. Please advise. T Michelle Johnson [facility] 2023-12-23 06:11:50 OK, she has been on these a long time. T [facility] 2023-12-22 10:23:19 [facility] [phone] Reporting medication interactions between KCL 20 mEq tablet and spironolactone 25 mg tablet aldactone interacts with potassium COREG interacts with DULERA inhaler Albuterol interacts with her COREG Therapist states provider may already be aware but she is required to make the notification. Please F/u if necessary Tramaine Marrero [facility] 2023-12-22 08:26:09 Sending patient Devunityt message. She needs to be seen but clinic has cancelled 2 future follow ups she had scheduled due to provider being out. Patient's blood sugars are running high and she is wanting to start back on Jardiance but she needs to be seen first. Parul Gould LVN [facility] 2023-12-21 11:55:05 Ilsa Johnson is a 63 year old female Patient is calling stating she would like to go ahead and be prescribed Jardiance. Stating blood sugars are in between 200-300 at night with the metformin. Please advise [facility] #[id number] - [place], [place] - [address] AT [employer] [facility] [employer] [address] [place] [address] Ortiz Greene [facility] 2023-12-15 16:16:45 Medication refilled per [...] Date Value 11/09/2023 4.8 Notes: Leg edema [facility] 2023-12-15 16:16:41 From: Ilsa Johnson To: Office of Jefferson Witt Sent: 12/15/2023 4:08 PM CDT Subject: Medication Renewal Request Refills have been requested for the following medications: spironolactone 25 mg tablet [Jefferson Witt] Preferred pharmacy: [facility] #[id number] - [place] - [address] AT [employer] [facility] [employer] Delivery method: Pickup [facility] 2023-12-15 13:31:04 Faxed office notes from 12/02/23 to [phone] Gabi Kirkland MA [facility] 2023-12-15 11:31:36 Ilsa Johnson is a [address] Shelton's clinic called back stating they still need the clinicals from 12/01. Please contact [phone] Hero Samuel [facility] 2023-12-15 10:15:36 Completed forms faxed to Dr. Ivory at [phone] Nereida Pierce LVN 12/15/2023 10:15 AM T [facility] 2023-12-15 09:42:05 Forms placed in Witt box for signature. T [facility] 2023-12-15 08:51:38 Notified patient we still have not received forms for diabetic shoes. She verbalized understanding. Is going to call the Office and have them re-faxed. Talked to Genevieve with Dr. Shelton and had them re-fax forms Nereida Pierce LVN 12/15/2023 8:52 AM [facility] 2023-12-15 08:49:29 Copied from [facility] #[id number]. Topic: Clinical - Medical Advice >> December 15, 2023 8:46 AM Patient Postal Transportation Clerk wrote: Ilsa Johnson is a 63 year old female Genevieve with Dr. Shelton is calling to check on status of forms that were faxed and re faxed today. Forms require providers signatuere for diabetic shoes Please advise Dr. Haddad PH. [phone] Shahida Arredondo [facility] 2023-12-15 08:48:01 Copied from [facility] #[id number]. Topic: Clinical - Paperwork/Forms >> December 15, 2023 8:45 AM Patient Postal Transportation Clerk wrote: Patient is requesting an update on forms for diabetic shoes. Patient states that she needs this shoes as soon as possible. Ras Moya [facility] 2023-12-14 17:16:23 See pt's MyChart Message. Kendell Fritz MD, PGY-4 Endocrinology Fellow [facility] 2023-12-11 10:33:30 Per JULIO 07/10/23 Glipizide was d/c. Please see encounter on 08/07/23 regarding Glipizide being restarted. Please send refill if appropriate. Pt needs to schedule an appt. Appt was cancelled by clinic for upcoming appt on 12/31 and 01/07 d/t provider being out of office. Helena Pro LVN [facility] 2023-12-11 09:24:08 Ilsa Johnson is [...] assist with refill and appt. Shanelle Strange [facility] 2023-12-09 14:15:18 Orders to assess and admit for PT have been faxed to [facility] at [phone] Nereida Pierce LVN 12/09/2023 2:15 PM [facility] 2023-12-09 13:30:51 Still awaiting forms. Not in clinscan2 [facility] 2023-12-09 11:45:30 Ilsa Johnson is a 63 year old female Genevieve with Dr. Shelton is calling to check on status of forms that were faxed and re faxed today. Forms require providers signatuere for diabetic shoes Please advise [phone] (home) Genevieve with Dr. Shelton Near Eastern Archaeology Lecturer [address] [place], [place] [address]Cam [facility] [address] Fax Steph Ayers [facility] 2023-12-08 13:43:58 JULIO 07/10/2023 NO Appt scheduled On JULIO 07/10/2023 note the provider has Stop glipizide in pt chart note. So refill denied Pt also needs appt scheduled for follow up. Madyson Rivera MA [facility] 2023-12-08 12:42:05 Spoke with patient and advised her we have not received orders for Diabetic shoes. She will reach out to [employer] and have them re-fax forms to [phone]. Further advised patient we had submitted orders for HH. She reports she had requested PT so she can walk again. Advised patient I will need to get Dr. Witt to sign orders tomorrow and I will fax them over. She verbalized understanding. Nereida Pierce LVN 12/08/2023 12:43 PM [facility] 2023-12-08 12:09:30 Copied from [facility] #[id number]. Topic: Clinical - Medical Advice >> December 08, 2023 12:08 PM Patient Postal Transportation Clerk wrote: Ilsa Johnson is a 63 year old female Patient calling back and asking if clinic has received any paperwork for patient's diabetic shoes and supplies - please advise and call patient to assist. [phone] (home) Leeanne Ventura [facility] 2023-12-08 10:50:58 Copied from [facility] #[id number]. Topic: Clinical - Order >> December 08, 2023 10:50 AM Patient Postal Transportation Clerk wrote: Pt called requesting to speak with a nurse in regards to HH orders. Please advise. Call back number:[phone]. Madyson Alas [facility] 2023-12-08 07:46:55 [place] [facility] 2023-12-07 11:22:32 Ilsa Johnson is a 63 year old female Pt requesting orders for therapy from [facility]. [facility] [phone] Becca Colon [facility] 2023-12-01 11:57:45 Please review previous note Notes: 11/02/23 Last Refilled: [facility] #[id number] - [place], [place] - [address] AT [employer] [facility] [employer] Recent Visits Date Type Provider Dept 11/09/23 [...] meeting all other requirements Rebecca Francis MA [facility] 2023-12-01 11:18:06 Ilsa Johnson is a 63 year old female patient requesting refill on her clonazepam. States the pharmacy she normally uses does not have or will not fill the 120 of the 1 mg. [facility] currently has this medication, but only the 0.5 mg. If possible she would like the order to go to the [facility] pharmacy, but for 240 of the 0.5. If not she said she would be fine with the 120 as long as she can get the medication. Please advise. [facility] #[id number] - [place], [place] - [address] AT [facility] & [employer] [address] [facility] [address] T [facility] 2023-12-01 10:51:24 Attempted to contact patient. No answer. Left message to call back. Patient has appt tomorrow will address then. [place] [facility] 2023-12-01 09:51:26 Copied from [facility] #[id number]. Topic: Clinical - Medical Advice >> Dec 01, 2023 9:50 AM Patient Postal Transportation Clerk wrote: Ilsa Johnson is a 63 year old female Pt is requesting for her latest lab results to be sent to: [facility] PH.[phone] [place], [place] Shahida Arredondo [facility] 2023-11-30 07:09:21 Last Refilled: Recent [...] authorizing provider and meeting all other requirements [facility] 2023-11-28 08:43:00 Regarding: face swelled [...] the on Thursday morning Priti Robles RN [facility] 2023-11-28 08:43:00 Adult Triage Assessment [...] in. or 5 cm) Protocols used: Face Zekbgshx-SYLDE-MK T [facility] 2023-11-23 10:18:27 FYI T [facility] 2023-11-23 10:07:39 Ilsa Johnson is a 63 year old female Anna ORTIZ RN called stating pt is being discharge 11/22 & wound on left heel has been resolve. Please advise Thank you Rayray Couch [facility] 2023-11-17 08:10:43 From: Ilsa Johnson To: Office of Jefferson Witt MD Sent: 11/17/2023 8:10 AM CDT Subject: Medication Renewal Request Refills have been requested for the following medications: CARVEDILOL 6.25 mg tablet [Jefferson Witt] Preferred pharmacy: [facility][id number] - [place], [place] - [address] AT [employer] [facility] [employer] [facility] Delivery method: Pickup [facility] 2023-11-12 15:55:17 Please review and advise [facility] 2023-11-12 15:49:15 Ilsa Johnson is a 63 year old female that states she has been taking antibiotics for a couple of weeks. The pt states that she has a yeast infection and is asking if Dr. Witt will send a prescription to the pharmacy. Nothing over the counter has helped. (Vaginal itching) Please assess/advise. [facility][id number] - [place], [place] - [address] AT [employer] [facility] [employer] [place] [address] [place] [address] Stephanie Crespo [facility] 2023-11-11 14:02:59 Images from the original note were not included. Contacted patient. Patient notified of results per provider. Verbalized understanding. Good potassium, slight improvement in anemia Written by Jefferson Witt MD on 11/10/2023 6:16 AM CDT Seen by patient Ilsa Johnson on 11/10/2023 6:57 AM Nereida Pierce LVN 11/11/2023 2:03 PM [facility] 2023-11-11 13:49:02 Ilsa Johnson is a 63 year old female Pt called regarding lab results stating that some test are low and some are high. Pt was wanting to know if there is any concerns, pt states that she is worried because she feels week and tired. Please advise. Odin Moya [facility] 2023-11-11 09:21:03 Copied from [facility] #[id number]. Topic: Clinical - Results >> Nov 11, 2023 9:19 AM Patient Postal Transportation Clerk wrote: Pt calling clinic wanting to speak with a nurse about her lab results Essie York [facility] 2023-11-09 14:15:00 Images from the original note were not included. Venipuncture collection performed by clean technique on the left anticubitus. Total of 1 attempts were made. Slight pressure and a bandage/dressing were applied to the site(s). The patient experienced no complications. The following specimens were processed according to instructions and sent to [facility] laboratories per lab order on 11/09/2023 : LT BLUE SST 1 RED LAV 1 PPT DK GREEN (LiHep) DK GREEN (SodH) PRINCE DK BLUE (K2) DK BLUE (S) ACD Blood Culture NIPT/NTD [facility] 2023-11-06 08:35:40 LVm to offer appt with FAMILY RESOURCE MANAGEMENT SPECIALIST or PA, Dr. Witt off today Nani [facility] 2023-11-04 22:16:34 Ilsa Johnson is a 63 year old female Is calling because she wanted to see if she can come in on or Thursday 5 she has painful sores in her mouth and can't wait until Thursday when her appointment is, please assist [phone] Alexandre Campos [facility] 2023-11-03 13:45:40 Received lab results from [employer]. Placed in the providers box. Nani [facility] 2023-11-02 07:07:37 From: Ilsa Johnson To: Office of Jefferson Witt MD Sent: 11/01/2023 7:05 PM CDT Subject: Medication Renewal Request Refills have been requested for the following medications: clonazePAM 1 mg tablet [Jefferson Witt] [id number] [place], [place] [address] [address] [facility] [employer] Delivery method: Pickup Recent Visits Date Type [...] authorizing provider and meeting all other requirements [facility] 2023-10-20 08:23:54 Addended by: NEREIDA PIERCE on: 10/20/2023 08:23 AM Modules accepted: Orders [facility] 2023-10-20 08:21:19 Outpatient Medication Detail Disp Refills Start End JOANNE nystatin 100,000 unit/mL suspension 120 mL 0 10/20/2023 -- No Sig: Take 5 mL by mouth 4 (four) times daily. Sent to pharmacy as: nystatin 100,000 unit/mL oral suspension (NILSTAT) Class: eRX Route: Oral Order: [id number] Date/Time Signed: 10/20/2023 08:21 E-Prescribing Status: Receipt confirmed by pharmacy (10/20/2023 8:21 AM CDT) Associated Diagnoses Thrush, oral - Primary Order Associated Providers Name NPI Ordering Provider Jefferson Witt MD [[id number]] [id number] Authorizing Provider Jefferson Witt MD [[id number]] [id number] Order Mode Info Action Created on Order Mode Entered by Responsible Provider Signed by Signed on Ordering 10/20/23 0821 Standing Delegated Orders Nereida Pierce LVN Rogers, Anthony, MD Pharmacy [facility][id number] - [place], [place] - [address] [employer] [address] [employer] Left patient detailed, private voicemail informing her of the above medication being called in. [facility] 2023-10-20 06:26:32 Nystatin suspension . 5cc swish and swallow Qid, ! BOTTLE. [facility] 2023-10-19 10:00:31 Please review and advise. [facility] 2023-10-19 09:53:54 Copied from [facility] #[id number]. Topic: Clinical - Medical Advice >> Oct 19, 2023 9:52 AM Patient Postal Transportation Clerk wrote: Ilsa Johnson is a 63 year old female Anna with [employer] is calling stating patient is receiving Vancomycin through IV and has pain to her tongue with white patches - asking if Dr. Witt wants to order any other medications [phone] Leeanne [facility]ura [facility] 2023-10-15 09:21:44 Images from the original note were not included. Spoke to patient and relayed lab results. Advised patient to begin taking OTC iron supplement 325 mg as ell as KCL20 MeQ twice daily that has been sent to [facility] in [place]. She verbalized understanding and does not have [...] AM Nereida Pierce LVN 10/15/2023 9:24 AM [facility] 2023-10-15 09:00:11 I think its 325 [facility] 2023-10-15 08:14:26 Dosage? [facility] 2023-10-15 08:02:49 Daily otc iron [facility] 2023-10-15 07:51:16 Images from the original note were not included. Anemia, slightly worse. Written by Jefferson Witt MD on 10/15/2023 6:09 AM CDT Seen by patient Ilsa Johnson on 10/15/2023 7:34 AM Please advise on what patient needs to take or do for anemia [facility] 2023-10-15 07:42:56 Ilsa Johnson is a 63 year old female that would like to speak with a nurse about her lab results, especially, the low iron. She's asking for clarification of what she needs to take. Please advise. Stephanie Crespo [facility] 2023-10-14 13:15:00 Images from the original note were not included. Venipuncture collection performed by clean technique on the right anticubitus. Total of 1 attempts were made. Slight pressure and a bandage/dressing were applied to the site(s). The patient experienced no complications. The following specimens were processed according to instructions and sent to [facility] laboratories per lab order on 10/14/2023: LT BLUE SST 1 RED LAV 2 PPT DK GREEN (LiHep) DK GREEN (SodH) PRINCE DK BLUE (K2) DK BLUE (S) ACD Blood Culture NIPT/NTD [facility] 2023-10-14 13:15:00 Addended by: NEREIDA PIERCE on: 10/15/2023 09:19 AM Modules accepted: Orders [facility] 2023-10-09 08:49:15 From: Ilsa Johnson To: Office of Jefferson Witt MD Sent: 10/09/2023 8:35 AM CANE FLUME FEEDING MACHINE OPERATOR Subject: Medication Renewal Request Refills have been requested for the following medications: ALBUTEROL 90 mcg/actuation inhaler [Jefferson Witt] Preferred pharmacy: [id number] - [place], [place] - [address] [employer] [address] [employer] Delivery method: Pickup Recent Visits Date Type [...] authorizing provider and meeting all other requirements [facility] 2023-10-01 07:05:53 From: Ilsa Johnson To: Office of Jefferson Witt MD Sent: 09/30/2023 6:41 PM CANE FLUME FEEDING MACHINE OPERATOR Subject: Medication Renewal Request Refills have been requested for the following medications: clonazePAM 1 mg tablet [Jefferson Witt] Preferred pharmacy: [facility][id number] - [place], [place] - [address] AT [employer] [address] [employer] Delivery method: Pickup Recent Visits Date Type [...] [facility] 11/12/22 Office Visit Jefferson iWtt MD Ang-Db [facility] 10/30/22 Office [...] authorizing provider and meeting all other requirements [facility] 2023-09-25 08:44:44 Alexandrea with [facility] notified per Dr. Witt he does not follow IV vanc ordrs or manage them. She verbalized understanding. Nereida Pierce LVN 09/25/2023 8:45 AM [facility] 2023-09-24 14:16:51 No, I don't do that with vancomycin [facility] 2023-09-24 13:01:20 Please review and advise. FLUME FEEDING MACHINE OPERATOR Dianna Bell RN [facility] 2023-09-24 12:52:43 Ilsa Johnson is a 63 year old female and [facility] is calling stating pt is in their care and would like to know if Dr. Witt would be ok with following the course of care for the IV vank and required labs for the duration of after care medication. Please advise. FLUME FEEDING MACHINE OPERATOR Juany Bower [facility] 2023-09-16 13:54:27 Ilsa Johnson is a 63 year old female Patient is calling to request a refill on Rx lisinopriL 40 mg tablet. Please advise. [id number] - [facility] [place] - [address] [facility] [employer] FLUME FEEDING MACHINE OPERATOR Leeanne Ventura [facility] 2023-09-15 08:20:32 From: Ilsa Johnson To: Office of Jefferson Witt MD Sent: 09/14/2023 4:46 PM CANE FLUME FEEDING MACHINE OPERATOR Subject: Medication Renewal Request Refills have been requested for the following medications: SPIRONOLACTONE 25 mg tablet [Jefferson Witt] Preferred pharmacy: [id number] - [place], [place] - [address] AT [facility] Delivery method: Pickup Outpatient Medication Detail Disp Refills Start End JOANNE SPIRONOLACTONE 25 mg tablet 180 tablet 0 04/13/2023 -- No Sig: TAKE 1 TABLET BY MOUTH IN THE MORNING AND IN THE EVENING Sent to pharmacy as: spironolactone 25 mg tablet (ALDACTONE) Class: eRX Order: [id number] Date/Time Signed: 04/13/2023 08:49 E-Prescribing Status: Receipt [...] authorizing provider and meeting all other requirements FLUME FEEDING MACHINE OPERATOR [facility] 2023-09-11 16:36:11 Patient notified of all and verbalized understanding. No further needs voiced at this time. FLUME FEEDING MACHINE OPERATOR Melanie Stanley LVN [facility] 2023-09-11 13:29:16 Ilsa Johnson is a 63 year old female Pt returning phone call from clinic. Pt is wanting to know how much iron she needs to be taking, she increased her dosage to 65 mg. Please advise. [phone] (home) [facility] 2023-09-11 09:18:42 Last Refilled: amLODIPine 10 mg [id number]--NoSig: Take 1 tablet by mouth in the morning.Sent to pharmacy as: amLODIPine 10 mg tablet ([facility])Class: eRXRoute: OralOrder: [id number]/Time Signed: 03/26/2023 13:04E-Prescribing Status: Receipt confirmed by [...] authorizing provider and meeting all other requirements FLUME FEEDING MACHINE OPERATOR Maggie Schreiber RN [facility] 2023-09-10 14:05:40 Continue with the otc iron [facility] 2023-09-10 13:55:38 Please review and advise JULIO 07/09/23 NOV 10/05/23 [facility] 2023-09-10 13:47:51 Ilsa Johnson is a 63 year old female that states her recent lab work showed that she had been low in iron. The pt states that she is taking 28mg of iron but still feels tired and run down. The pt is asking how much iron she should take. Please advise. FLUME FEEDING MACHINE OPERATOR Stephanie Crespo [facility] 2023-09-04 09:03:15 Tried to reach Ms. Johnson to discuss concerns and the benefits of jardiance, however was unable to reach her and left a voice mail at this time. Will follow up again. FLUME FEEDING MACHINE OPERATOR IM-ENDOCRINOLOGY,DIABETE S & METABOLISM [facility] 2023-09-02 08:32:48 From: Ilsa Johnson To: Office of Jefferson Witt MD Sent: 09/01/2023 7:05 PM CANE FLUME FEEDING MACHINE OPERATOR Subject: Medication Renewal Request Refills have been requested for the following medications: clonazePAM 1 mg tablet [Jefferson Witt] Preferred pharmacy: [facility] #[id number] - [place], [place] - [address] AT [facility] [address] [employer] Delivery method: Pickup Recent Visits Date Type [...] authorizing provider and meeting all other requirements [facility] 2023-08-18 16:13:14 Images from the original note [...] Witt MD Last refill: 11/27/2022 Rx #: [id number]|0|1 General Refills Fzxoyt2008/18/2023 04:12 PM Protocol Details Valid encounter within last 12 months To be filled at: [facility] #[id number] - [place], [place] - [address] [facility] [employer] Recent Visits Date Type Provider Dept 07/09/23 [...] authorizing provider and meeting all other requirements [facility] 2023-08-14 08:45:00 Images from the original note were not included. Venipuncture collection performed by clean technique on the right anticubitus. Total of 1 attempts were made. Slight pressure and a bandage/dressing were applied to the site(s). The patient experienced no complications. The following specimens were processed according to instructions and sent to [facility] laboratories per lab order on 08/14/2023 : LT BLUE SST 1 RED LAV 1 PPT DK GREEN (LiHep) DK GREEN (SodH) PRINCE DK BLUE (K2) DK BLUE (S) ACD Blood Culture NIPT/NTD FLUME FEEDING MACHINE OPERATOR [facility] 2023-08-10 14:06:30 Images from the [...] on metformin and glipizide only Routing to [place] if ok to stop jardiance and take glipizide and metformin ON Payton MA [facility] 2023-08-07 08:19:10 Images from the [...] Witt MD Last refill: 05/13/2023 Rx #: [id number]|0|1 Provider Review Required Deksks4508/07/2023 05:46 AM Protocol Details This refill cannot be delegated Valid encounter within last 12 months To be filled at: [facility] #[id number] - [place], [place] - [address] AT [employer] [address] [employer] Recent Visits Date Type Provider Dept 07/09/23 [...] authorizing provider and meeting all other requirements [facility] 2023-08-05 10:02:47 Images from the original note were not included. Last Refilled: 07/07/23 Notes: [facility] #[id number] - [place], [place] - [address] [facility] [employer] Recent Visits Date Type Provider Dept 07/09/23 [...] by Nora Morrow MD Provider Review Required Unracy2408/05/2023 08:19 AM Protocol Details This refill cannot be delegated Valid encounter within last 12 months To be filled at: [facility] #[id number] - [place] - [address] AT [employer] [facility] Rebecca Francis MA [facility] [address] 2023-08-05 08:16:59 Ilsa Johnson is a 63 year old female Patient requesting a refill of: Medication: clonazePAM Dose: 1 mg Route: oral Quantity: 120 tablets Pharmacy: [facility] #[id number] - [place] - [address] [place] [address] Last appt.: 07/01/23 Next appt.: 10/05/23 [facility] [address] 2023-08-04 09:47:[address] orders if approved FLUME FEEDING MACHINE OPERATOR Gabi Kirkland [facility] 2023-08-04 08:36:08 Ilsa Johnson is a 63 year old female calling in requesting lab orders patient wants to check her hemoglobin as well as Iron.Please advise FLUME FEEDING MACHINE OPERATOR Nicola Craig [facility] 2023-07-30 14:50:19 JULIO:07/10/2023 NOV:01/01/2024 Last note; Plan --take Tresiba 48 units once daily --Reduce metformin to 850 mg once daily --Continue Jardiance 10 mg daily. --Stop glipizide. Return in about 4 months (around 11/09/2023). __ Refilled Gabapentin FLUME FEEDING MACHINE OPERATOR Sarah Cantrell RN [facility] 2023-07-17 08:57:47 Pt calling says she need to go over meds is having issues with empagliflozin (JARDIANCE) 10 mg Making her urinate often and says it not helping lowering her blood sugars just want to stay on metformin and glipizide only FLUME FEEDING MACHINE OPERATOR Nevaeh Payton [facility] 2023-04-20 14:19:42 Formatting of this n ote might be different from the original. Order placed via parachute. Will update as carrie permits. [facility] 2023-04-20 06:25:22 Formatting of this n ote might be different from the original. OK T [facility] 2023-04-17 08:09:19 Formatting of this n ote might be different from the original. Please review and advise T [facility] 2023-04-15 13:14:13 Formatting of this n ote might be different from the original. Patient is requesting an order for a bed rail. She is not sure if Medicare will pay for it. Rashida Heredianandez [facility] 2023-04-13 16:17:55 Formatting of this n ote might be different from the original. Medication sent in per and Anna with [facility] has been notified. She stated she will contact the patient to let her know. T [facility] 2023-04-13 15:35:56 Formatting of this n ote might be different from the original. Ok diflucan 150mg times 1 T [facility] 2023-04-13 14:46:45 Formatting of this n ote might be different from the original. Anna with [facility] is calling in requesting medication for current yeast infection due to recent ABX usage.Please advise T Nicola Craig [facility] 2023-04-08 07:59:50 Formatting of this n ote might be different from the original. Next Appt: With Family Medicine (Jefferson Witt MD) 04/08/2023 at 9:30 AM Will take care of this at her appt today per Dr. Witt T [facility] 2023-04-07 15:50:18 Formatting of this n ote might be different from the original. Pt says she need larger wheel chair the one she has is uncomfortable she uses [facility] Patient Nevaeh Payton [facility] 2023-03-28 15:03:00 Formatting of this n ote might be different from the original. Regarding: [id number], 62y/f, BP last 2 nights over 200, today it is 155/70. seeking advice about ER? ----- Message from Daphnie Barragan sent at 03/28/2023 3:03 PM CDT ----- Ilsa Johnson is a 62 year old female Alana Freire RN [facility] 2023-03-28 15:03:00 Formatting of this [...] taking BP medications Protocols used: High Blood Fyykypez-[id number] Patient calling concerned of elevated blood pressure [...] agrees with this plan. Alana Freire RN [facility] Access Center Triage Nurse [facility] 2023-03-27 15:08:46 Formatting of this n ote might be different from the original. [facility] cert for 03/15/23-05/13/23 approved and ready for provider signature in suture sign. Please review and sign if appropriate. Dianna Bell RN [facility] 2023-03-26 07:46:02 Formatting of this [...] and agreed with recommendations. Elizabeth Sotelo RN [facility] 2023-03-26 07:41:47 Formatting of this n ote might be different from the original. Patient is calling stating her blood pressure is high, she does not know what it is this morning but last night it was 185/89. She states she is under a lot of stress and being treated for an infection on her leg. Nurse notified. Rashida Marrero [facility] 2023-02-25 09:22:14 Formatting of this [...] mouth daily with breakfast. Sent to Pharmacy [facility] 2023-02-24 17:18:05 Formatting of this n ote might be different from the original. Images from the original note were not included. Jayashree [facility] 2023-02-24 17:16:49 Formatting of this n ote might be different from the original. Images from the original note were not included. [facility] 2023-02-20 15:35:26 Formatting of this n ote is different from the original. Images from the original note were not included. METFORMIN 850MG TABLETS metFORMIN 850 mg tablet 270 tablet 0 12/06/2022 No Sig: TAKE 1 TABLET BY MOUTH THREE TIMES DAILY Sent to pharmacy as: metFORMIN 850 mg tablet (GLUCOPHAGE) Class: eRX Order: [id number] Date/Time Signed: 12/06/2022 16:36 E-Prescribing Status: Receipt [...] azelastine HCl 137 mcg (0.1 %) 1 [place] Nasal BID, Use in each nostril as [...] MOUTH THREE TIMES DAILY Nov:07/10/2023 Refill sent [facility] 2023-02-20 07:33:47 Formatting of this n ote is different from the original. Refill cannot be delegated. Please review and fill if appropriate. Outpatient Medication Detail Disp Refills Start End JOANNE TIZANIDINE 4 mg tablet 270 tablet 0 12/08/2022 No Sig: TAKE 1 TABLET BY MOUTH EVERY 8 HOURS NEEDED Sent to pharmacy as: tiZANidine 4 mg tablet (ZANAFLEX) Class: eRX Order: [id number] Date/Time Signed: 12/08/2022 06:29 E-Prescribing Status: Receipt confirmed by pharmacy (12/08/2022 6:29 AM CDT) Recent Visits Date Type Provider Dept 02/11/23 Office Visit Jefferson Witt MD Ang-Db [facility] 12/22/22 Office Visit Daniel Castellon FNP Ang-Db [facility] 11/27/22 Office Visit Jefferson Witt MD Ang-Db [facility] 11/12/22 Office Visit Jefferson Witt MD [...] provider and meeting all other requirements [facility]
[2025-03-26 16:44] LABS: Absolute Lymphocytes (CBC) 2.4 K/uL (0.7-4.9); Hematocrit 32.0 % (36.0-45.0); Hemoglobin 10.6 g/dL (12.0-15.0); MCH 26.9 pg (27.0-35.0); MCHC 33.2 g/dL (32.0-36.0); MCV 80.8 fL (80-100); MPV 9.4 fL (7.6-11.3); Nucleated RBC Absolute Count 0.0 (0-0); Nucleated Red Blood Cells % 0.1 % (0-0); RBC Red Blood Cell Count 3.96 M/uL (3.86-4.86); White Blood Count 8.40 thou/uL (4.3-10.9)
--- NOTE | 2025-03-26 17:10 | RAD REPORT ---
Procedure: Chest Single View HISTORY: Chest pain COMPARISON: 2023 FINDINGS: Mild reticular nodular infiltrate left lung base. Right lung appears clear. No significant pleural effusion noted. The heart is normal size. IMPRESSION: Mild reticular nodular infiltrate left lung base may represent infection or pneumonitis.
[2025-03-26 17:13] LABS: ALT/SGPT 39 U/L (13-56); AST/SGOT 35 U/L (15-37); Albumin 3.7 g/dL (3.4-5.0); Albumin/Globulin Ratio 1.0 (1.1-1.8); Alkaline Phosphatase 34 U/L (45-117); Anion Gap 11.2 mEq/L (5.0-15.0); BUN Blood Urea Nitrogen 39 mg/dL (7-18); Globulin 3.6 g/dL (2.3-3.5); Glucose Level 182 mg/dL (74-106); Lipase 73 U/L (13-75); NT PRO-BNP 141 pg/mL (<125); Potassium 4.2 mEq/L (3.5-5.1); Troponin High Sensitivity 11.8 pg/mL (<58.9)
--- NOTE | 2025-03-26 17:17 | RAD REPORT ---
EXAM: CT CHEST, ABDOMEN AND PELVIS WITHOUT CONTRAST CLINICAL INDICATION: Chest and abdominal pain TECHNIQUE: CT chest, abdomen and pelvis was performed, without IV contrast, as per department protoco l. Axial, sagittal and coronal reconstructions were obtained. One or more of the following dose reduction techniques were used: Automated exposure control, adjustment of the mA and/or kV according to the patient size, and/or iterative reconstruction. Unless otherwise specified, incidental findings do not require dedicated imaging follow-up. The lack of IV and oral contrast limits evaluation of the mediastinum, osmany, vessels, organs and wayne l. COMPARISON: CT abdomen 2023 FINDINGS: Mild tree-in-bud opacities left lower lobe. Right lung is clear. No mediastinal or hilar lymphadenopathy seen. No pleural effusion. No pericardial effusion. Liver, spleen, pancreas, and adrenals grossly normal. Bilateral renal calculi. Extrarenal pelves are present. No hydronephrosis. Appendectomy. Cholecystectomy. Hysterectomy. No adnexal mass. Moderate amount of stool within the colon.. Diastases rectus abdominis muscle 16 cm with laxity of th e anterior abdominal wall There is no evidence of diverticulitis. Spondylosis lumbar spine IMPRESSION: Mild tree-in-bud opacities left lower lobe may indicate an atypical infection or pneumonitis. Bilateral nonobstructing renal calculi. Moderate amount stool throughout the colon
[2025-03-26 17:27] LABS: Bilirubin Indirect, Calculated 0.1 mg/dL (0.2-0.8)
--- NOTE | 2025-03-26 17:42 | ER ---
Nurse's Notes [facility] Name: Jose Edmond Age: 64 yrs Sex: Female : 1960 Arrival Date: 03/26/2025 Time: 16:11 Bed 8 Private MD: Diagnosis: COPD/ Chronic obstructive pulmonary disease with acute lower respiratory infection;COPD/ Chronic obstructive pulmonary disease with (acute) exacerbation Presentation: 03/26 16:22 Chief complaint: Patient states: midsternal chest pain radiating to left arm started an iw hour ago, feels like indigestion. Coronavirus screen: At this time, the client does not indicate any symptoms associated with coronavirus-19. Ebola Screen: No symptoms or risks identified at this time. Initial Sepsis Screen: Does the patient meet any 2 criteria? No. Patient's initial sepsis screen is negative. Does the patient have a suspected source of infection? No. Patient's initial sepsis screen is negative. Risk Assessment: Do you want to hurt yourself or someone else? Patient reports no desire to harm self or others. Onset of symptoms was March 26, 2025. 16:22 Method Of Arrival: EMS: [facility] iw 16:22 Acuity: MAYRA 3 iw Historical: - Allergies: 16:23 Morphine; iw 16:23 Sulfa (Sulfonamide Antibiotics); iw 16:23 TETRACYCLINES; iw - PMHx: 16:23 Chronic obstructive lung disease; diabetes mellitus; Hypertensive disorder; iw - PSHx: 16:23 back; Appendectomy; section; Cholecystectomy; hernia; foot sx; hysterectomy; iw - Immunization history:: Adult Immunizations up to date. - Infectious Disease History:: Denies. - Family history:: not pertinent. - Hospitalizations: : No recent hospitalization is reported. - Social history:: Smoking status: Patient denies any tobacco usage or history of. Screenin:42 [facility] ED Fall Risk Assessment (Adult) History of falling in the last 3 months, dd2 including since admission No falls in past 3 months (0 pts) Confusion or Disorientation No (0 pts) Intoxicated or Sedated No (0 pts) Impaired Gait Yes (1 pt) Mobility Assist Device Used Yes (1 pt) Altered Elimination No (0 pt) Score/Fall Risk Level 0 - 2 = Low Risk Oriented to surroundings, Maintained a safe environment, Educated pt \T\ family on fall prevention, incl call for assistance when getting out of bed, Assessed \T\ reinforced patient's understanding of fall precautions, Hourly rounding (assess needs \T\ fall precautionary measures) done, Used ambulatory aids as needed (educated on \T\ assisted with). Abuse screen: Denies threats or abuse. Denies injuries from another. Nutritional screening: No deficits noted. Tuberculosis screening: No symptoms or risk factors identified. Assessment: 16:42 General: Appears in no apparent distress. Behavior is calm, cooperative, appropriate dd2 for age. Pain: Complains of pain in xiphoid area, mid-sternal area and epigastric area Pain currently is 7 out of 10 on a pain scale. Quality of pain is described as burning. Neuro: No deficits noted. Cardiovascular: Reports chest pain, Capillary refill < 3 seconds JVD is absent Patient's skin is warm and dry. Respiratory: No deficits noted. GI: Abd is soft and non tender X 4 quads. Reports gaseousness, Patient currently denies abdominal pain. : No deficits noted. No signs and/or symptoms were reported regarding the genitourinary system. EENT: No deficits noted. No signs and/or symptoms were reported regarding the EENT system. Derm: No deficits noted. No signs and/or symptoms reported regarding the dermatologic system. Musculoskeletal: No signs and/or symptoms reported regarding the musculoskeletal system. Vital Signs: 16:22 BP 136 / 85; Pulse 78; Resp 18; Temp 98.2; Pulse Ox 95% on R/A; iw 19:09 BP 132 / 78; Pulse 73; Resp 17; Pulse Ox 95% on R/A; iw Alec Coma Score: 16:42 Eye Response: spontaneous(4). Motor Response: obeys commands(6). Verbal Response: dd2 oriented(5). Total: 15. ED Course: 16:13 Patient arrived in ED. em1 16:13 Chris Krueger MD is Attending Physician. rn 16:23 Triage completed. iw 16:23 Basic Metabolic Panel Sent. dd2 16:23 CBC with Diff Sent. dd2 16:23 LFT's Sent. dd2 16:23 NT PRO-BNP Sent. dd2 16:23 Troponin HS Sent. dd2 16:24 Arm band placed on. iw 16:42 No provider procedures requiring assistance completed. Initial lab(s) drawn, by me, dd2 sent to lab. Maintain EMS IV. Dressing intact. Good blood return noted. Site clean \T\ dry. Gauge \T\ site: 18g lac. Flushed with 10 mL NS. Patient maintains SpO2 saturation greater than 95% on room air. 16:42 Patient has correct armband on for positive identification. Bed in low position. Call dd2 light in reach. Side rails up X2. Client placed on continuous cardiac and pulse oximetry monitoring. NIBP monitoring applied. conduit worker on. Door closed. Noise minimized. Warm blanket given. Pillow given. Verbal reassurance given. 16:59 XRAY Chest (1 view) In Process Unspecified. EDMS 17:07 Chest Abd Pelvis Wo Con In Process Unspecified. EDMS 19:56 intact, bleeding controlled, No redness/swelling at site. Pressure dressing applied. cp4 19:56 Provided Education on: chest pain. cp4 Administered Medications: 16:39 Drug: GI Cocktail without - (Maalox PO 30 ml, Lidocaine Mucous Membrane 2 % 15 dd2 ml) PO once Route: PO; 19:58 Follow up: Response: No adverse reaction cp4 16:39 Drug: Famotidine IVP 20 mg IVP once; dilute with 10 mL 0.9% NaCl; give over 2 minutes dd2 Route: IVP; Site: left antecubital; 19:58 Follow up: Response: No adverse reaction cp4 18:00 Drug: LevOfloxacin PO 750 mg PO once Route: PO; iw 19:58 Follow up: Response: No adverse reaction 4 18:00 Drug: MethylPrednisoLONE IVP 125 mg IVP once Route: IVP; Site: left antecubital; iw 19:57 Follow up: Response: No adverse reaction 4 18:00 Drug: Levalbuterol Inhalation 1.25 mg Inhalation once Route: Inhalation; iw Medication: 16:42 VIS not applicable for this client. dd2 Outcome: 17:42 Discharge ordered by . rn 19:56 Discharged to home via wheelchair, cp4 19:56 Condition: stable 19:56 Discharge instructions given to patient, family, Instructed on discharge instructions, follow up and referral plans. medication usage, Demonstrated understanding of instructions, follow-up care, medications, Prescriptions given X 2, 19:57 Patient left the ED. cp4 Signatures: Dispatcher [employer] Pinky Adamson, RN Chris Paz MD MD rn Martinez, Eric emRafia Chi cp4 JORGE MAYER RN RN dd2
--- NOTE | 2025-03-26 17:42 | EDPHYS ---
Physician Documentation [facility] Name: Jose Edmond Age: 64 yrs Sex: Female : 1960 Arrival Date: 03/26/2025 Time: 16:11 Bed 8 Private MD: ED Physician Chris Krueger HPI: 03/26 16:22 This 64 yrs old Female presents to ER via Unassigned with complaints of chest pain. rn 16:22 Patient reports substernal chest pain, radiates to the back. Has been having it rn intermittently. Seen here a few weeks ago and diagnosed with esophagitis. Has not been taking antacid medication. No difficulty breathing. No cough. No fever. No trauma. Denies blood in stool or vomiting.. Historical: - Allergies: 16:23 Morphine; iw 16:23 Sulfa (Sulfonamide Antibiotics); iw 16:23 TETRACYCLINES; iw - PMHx: 16:23 Chronic obstructive lung disease; diabetes mellitus; Hypertensive disorder; iw - PSHx: 16:23 back; Appendectomy; section; Cholecystectomy; hernia; foot sx; hysterectomy; iw - Immunization history:: Adult Immunizations up to date. - Infectious Disease History:: Denies. - Family history:: not pertinent. - Hospitalizations: : No recent hospitalization is reported. - Social history:: Smoking status: Patient denies any tobacco usage or history of. ROS: 16:22 Constitutional: Negative for fever, chills, and weight loss, Neck: Negative for injury, rn pain, and swelling, Cardiovascular: Positive for chest pain Respiratory: Negative for shortness of breath, cough, wheezing, and pleuritic chest pain, Abdomen/GI: Negative for abdominal pain, nausea, vomiting, diarrhea, and constipation, Back: Positive for back pain MS/Extremity: Negative for injury and deformity, Skin: Negative for injury, rash, and discoloration, Neuro: Negative for headache, weakness, numbness, tingling, and seizure, Exam: 16:22 Constitutional: This is a well developed, well nourished patient who is awake, alert, rn and in no acute distress. Cardiovascular: Regular rate and rhythm. No pulse deficits. Respiratory: Speaking full sentences, unlabored. No increased work of breathing, no retractions or nasal flaring. Abdomen/GI: Soft, nontender, nondistended, no pulsatile masses, no peritoneal signs MS/ Extremity: Pulses equal, no cyanosis. Neurovascular intact. Full, normal range of motion. Equal circumference. 17:33 ECG was reviewed by the Attending Physician. rn Vital Signs: 16:22 BP 136 / 85; Pulse 78; Resp 18; Temp 98.2; Pulse Ox 95% on R/A; iw 19:09 BP 132 / 78; Pulse 73; Resp 17; Pulse Ox 95% on R/A; iw Eleva Coma Score: 16:42 Eye Response: spontaneous(4). Motor Response: obeys commands(6). Verbal Response: dd2 oriented(5). Total: 15. MDM: 16:13 Medical Screening Exam initiated rn 17:40 Differential diagnosis: acute pericarditis, anxiety, coronary artery disease rn costochondritis, esophagitis, gastritis, gastroesophageal reflux disease (GERD), pleurisy, pneumonia, pneumothorax. Data reviewed: vital signs, nurses notes, lab test result(s), EKG, radiologic studies, CT scan, plain films. Consideration of Admission/Observation Escalation of care including admission/observation considered. Admission considered, patient would like to go home and reports breathing is not any worse than her baseline COPD.. Independent interpretation of the following test(s) in the Emergency Department EKG: See my EKG interpretation above X-Ray: My interpretation is Chest x-ray images negative for pneumothorax per my interpretation. CT Scan: My interpretation is CT chest images show possible pneumonia left lung per my interpretation. Care significantly affected by the following chronic conditions: Chronic Obstructive Pulmonary Disease. Counseling: I had a detailed discussion with the patient and/or guardian regarding the historical points, exam findings, and any diagnostic results supporting the discharge/admit diagnosis, lab results, radiology results, the need for outpatient follow up, to return to the emergency department if symptoms worsen or persist or if there are any questions or concerns that arise at home. Response to treatment: the patient's symptoms have mildly improved after treatment, and as a result, I will discharge patient. Special discussion: I discussed with the patient/guardian in detail that at this point there is no indication for admission to the hospital. It is understood, however, that if the symptoms persist or worsen the patient needs to return immediately for re-evaluation. Based on the history and exam findings, there is no indication for further emergent testing or inpatient evaluation. I discussed with the patient/guardian the need to see the primary care provider for further evaluation of the symptoms. I discussed with the patient/guardian the need to see the blocker and polisher for further evaluation of the symptoms. ED course: I have personally reviewed all of the results, including but not limited to blood tests and imaging deemed necessary to safely discharge this patient at this time. All results given to and printed out for patient. I personally went over all the results with the patient and answered all questions. Patient will follow-up with PCP and or specialist as discussed. Return precautions given and understood.. 03/26 16:13 Order name: Basic Metabolic Panel; Complete Time: : rn 03/26 16:13 Order name: CBC with Diff; Complete Time: :03/26 16:13 Order name: LFT's; Complete Time: : rn 03/26 16:13 Order name: NT PRO-BNP; Complete Time: : rn 03/26 16:13 Order name: Troponin HS; Complete Time: :03/26 16:13 Order name: Lipase; Complete Time: : rn 03/26 16:13 Order name: XRAY Chest (1 view); Complete Time: 17: rn 03/26 17:04 Order name: Chest Abd Pelvis Wo Con; Complete Time: 17:20 EDMS 03/26 16:13 Order name: Cardiac monitoring; Complete Time: 03/26 16:13 Order name: EKG - Nurse/Tech; Complete Time: :03/26 16:13 Order name: IV Saline Lock; Complete Time: 03/26 16:13 Order name: Labs collected and sent; Complete Time: 03/26 16:13 Order name: O2 Per Protocol; Complete Time: 03/26 16:13 Order name: O2 Sat Monitoring; Complete Time: : rn EC:33 Rate is 85 beats/min. Rhythm is regular. QRS [place] is Normal. HI interval is normal. QRS rn interval is normal. QT interval is normal. No Q waves. T waves are Normal. No ST changes noted. Clinical impression: NSR w/ Non-specific ST/T Changes. Interpreted by me. Reviewed by me. Administered Medications: 16:39 Drug: GI Cocktail without - (Maalox PO 30 ml, Lidocaine Mucous Membrane 2 % 15 dd2 ml) PO once Route: PO; 19:58 Follow up: Response: No adverse reaction cp4 16:39 Drug: Famotidine IVP 20 mg IVP once; dilute with 10 mL 0.9% NaCl; give over 2 minutes dd2 Route: IVP; Site: left antecubital; 19:58 Follow up: Response: No adverse reaction cp4 18:00 Drug: LevOfloxacin PO 750 mg PO once Route: PO; iw 19:58 Follow up: Response: No adverse reaction cp4 18:00 Drug: MethylPrednisoLONE IVP 125 mg IVP once Route: IVP; Site: left antecubital; iw 19:57 Follow up: Response: No adverse reaction cp4 18:00 Drug: Levalbuterol Inhalation 1.25 mg Inhalation once Route: Inhalation; iw Disposition Summary: 03/26/25 17:42 Discharge Ordered Notes: Location: Home rn Problem: new rn Symptoms: have improved rn Condition: Stable rn Diagnosis - COPD/ Chronic obstructive pulmonary disease with acute lower respiratory infection rn - COPD/ Chronic obstructive pulmonary disease with (acute) exacerbation rn Followup: rn - With: Private Physician - When: As needed - Reason: Recheck today's complaints, Re-evaluation by your physician Discharge Instructions: - Discharge Summary Sheet rn - Chronic Obstructive Pulmonary Disease Exacerbation rn - Pneumonitis rn Forms: - Medication Reconciliation Form rn - 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 - Prescription Opioid Use rn - Patient Portal Instructions rn - Leadership Thank You Letter rn Prescriptions: - Prednisone 20 mg Oral Tablet - take 3 tablets ORAL route once daily for 5 days; 15 tablet; Refills: 0, Product rn Selection Permitted - levofloxacin 500 mg Oral tablet - take 1 tablet ORAL route once daily for 10 days; 10 tablet; Refills: 0, Product rn Selection Permitted Signatures: Dispatcher [employer] Pinky Adamson RN RN iw Chris Krueger MD MD rn DAVIS, DIANA, RN RN dd2 Rafia Tian cp4 Corrections: (The following items were deleted from the chart) 16:14 16:14 BASIC METABOLIC PANEL+C.LAB.BRZ ordered. EDMS EDMS 16:14 16:14 CBC+H.LAB.BRZ ordered. EDMS EDMS 16:14 16:14 HEPATIC FUNCTION+C.LAB.BRZ ordered. EDMS EDMS 16:14 16:14 PROBNP+C.LAB.BRZ ordered. EDMS EDMS 16:14 16:14 Troponin High Sensitivity+C.LAB.BRZ ordered. EDMS EDMS 16:14 16:14 LIPASE+C.LAB.BRZ ordered. EDMS EDMS 16:14 16:14 Chest Single View+RAD.RAD.BRZ ordered. EDMS EDMS 16:22 16:22 Patient reports substernal chest pain, radiates to the back. Has been having it rn intermittently. Seen here a few weeks ago and diagnosed with esophagitis. Has not been taking antacid medication. No difficulty breathing. No cough. No fever. No trauma.. rn 17:04 16:36 Abdomen Pelvis Wo Con+CT.RAD.BRZ ordered. EDMS EDMS
[2025-03-26] MEDS ORDERED: METHYLPREDNISOLONE 125 MG INJ ONE (17:50)
[2025-03-26] MEDS ORDERED: WATER FOR INJ,STERILE 10 ML ONE (17:51)
[2025-03-26] MEDS ORDERED: LEVALBUTEROL 1.25 MG/3 ML NEB ONE (17:51)
[2025-03-26 20:11] VITALS: TEMP 98.2; O2SAT 95
[2025-03-26 20:12] VITALS: BP 132/78
== END 2025-03-26 19:57 | disposition home or self-care (01) ==
LOC: ER 16:11
DX: J44.0 Chronic obstructive pulmonary disease with (acute) lower respiratory infection (principal); J22 Unspecified acute lower respiratory infection; J44.1 Chronic obstructive pulmonary disease with (acute) exacerbation; I10 Essential (primary) hypertension
CPT/HCPCS: 93005; 85025; 80048; 36415; 80076; 84484; 83690; 83880; 71250; 74176; 71045; 96375; 96374; 99285; J7614; J2919